=== PATIENT | female | born 1960 | race Caucasian/White ===

== ENCOUNTER → 2017-12-15 15:44 | Outpatient (CLI) | payer OTHER, SELFPAY ==
[2017-12-15 18:36] LABS: Hematocrit 33.5 % (37-47); Hemoglobin 10.7 g/dl (12.0-15.0); Mean Corp Hgb Conc 31.9 g/gl (32-36); Mean Corpuscular Hgb 30.5 pg (27.0-32.0); Mean Corpuscular Volume 95.4 fL (81-99); Mean Platelet Vol. 10.4 fl (6.2-12.0); Platelet Count 231 K/mm3 (150-450); RBC Distribution Width CV 12.5 % (11.6-14.6); Red Blood Count 3.51 M/mm3 (4.2-5.4)
[2017-12-15 18:55] LABS: Scan Indicated on CBC? Y/N NO
[2017-12-15 19:00] LABS: ALB/GLOB Ratio 0.9 RATIO (0.9-2.4); AST(SGOT) 27 U/L (15-37); Alanine Aminotransfer ALT/SGPT 30 U/L (13-56); Albumin, Serum 3.1 g/dL (3.2-5.0); Alkaline Phosphatase 77 U/L (45-117); Anion Gap 7 (5-15); BUN 32 mg/dL (7-18); BUN/Creat Ratio 20.6 RATIO (10-20); Calcium,Total 8.5 mg/dL (8.5-10.1); Chloride 109 mmol/L (98-107); Cholesterol 150 mg/dL (200); Creatinine, Serum 1.55 mg/dL (0.55-1.02); EST Glomerular Filtration Rate 37 mL/min (>60); Est Glom Filt Rate - Afr Amer 44 mL/min (>60); Globulin 3.4 g/dL (2.2-4.2); Glucose 90 mg/dL (74-106); High Density Lipoprotein 64 mg/dL; Potassium 4.9 mmol/L (3.5-5.1); Protein, Total 6.5 g/dL (6.4-8.2); Sodium Level 142 mmol/L (136-145); Thyroid Stim Hormone (TSH) 1.69 uIU/mL (0.358-3.74); Triglycerides 93 mg/dL; Very Low Density Lipoprotein 19 mg/dL (5-40)
[2017-12-15 19:58] LABS: Vitamin D,25 Hydroxy 9.1 ng/mL (19.95-100.01)
[2017-12-16 16:35] LABS: RET-HE 33.8 pg (30-35); Reticulocyte Count 1.36 % (0.5-1.5)
[2017-12-16 17:55] LABS: Ferritin 60 ng/mL (8-252); Iron 48 ug/dL (50-170); Iron Binding Capacity,Total 276 ug/dL (250-450); PERCENT IRON SATURATION 17.4 % (15.0-55.0)
== END ==
PROVIDERS: Family Provider Family Medicine; PCP Family Medicine; Visit Provider Family Medicine
DX: N18.9 Chronic kidney disease, unspecified (principal)
CPT/HCPCS: 36415; 80053; 80061; 82306; 82728; 83540; 83550; 84443; 85027; 85045

== ENCOUNTER 2018-01-11 19:05 | Inpatient (IN) | payer OTHER, SELFPAY ==
[2018-01-11 19:10] VITALS: BP 96/39; PULSE 76; RESP 16; TEMP 36.6; O2SAT 98; BMI 17.1
[2018-01-11 19:21] LABS: Bedside Glucose > 500 mg/dL (70-110)
[2018-01-11] MEDS: 0.9% Normal Saline 1,000 ML 999 ML IV (19:25)
--- NOTE | 2018-01-11 19:30 | RAD_ITS ---
STUDY: X-RAY CHEST REASON FOR EXAM: Female, 57 years old. Hyperglycemia TECHNIQUE: A single frontal view of the chest was obtained. COMPARISON: March 11, 2015 FINDINGS: The lungs are hyperinflated. There are no focal airspace opacities. There is no demonstrated pleural abnormality. The cardiac silhouette is normal in size. The mediastinum and hilar regions are unremarkable. Normal visualized pulmonary arteries. Normal visualized aortic arch and descending thoracic aorta. The thoracic spine is unremarkable. The visualized ribs, clavicles, and shoulders are unremarkable. There is no demonstrated abnormality of the visualized upper abdomen. RAD/Chest 1 View (Portable) IMPRESSION: No acute cardiopulmonary abnormalities or changes. Stable COPD. Electronically Signed: Otilia Paul MD at 19:54 EDT Tel Direct: [phone], Service support ,
--- NOTE | 2018-01-11 19:51 | EKG12_ITS ---
Test Reason : HYPERGLYCEMIA Blood Pressure : / mmHG Vent. Rate : 077 BPM Atrial Rate : 077 BPM P-R Int : 158 ms QRS Dur : 080 ms QT Int : 398 ms P-R-T Axes : 073 -69 086 degrees QTc Int : 450 ms Normal sinus rhythm Left axis deviation Septal infarct , age undetermined Abnormal ECG Confirmed by MODESTO DAIGLE, NICOLA ([id number]), editor index HARPAL ELLIS ([id number]) on 01/14/2018 4:09:50 PM Referred By: CAMMIE Confirmed By:NICOLA SALVADOR MD
[2018-01-11 20:18] LABS: Absolute Lymphocyte Count 1.39 X10^3/ul (0.83-4.51); Absolute Neutrophil Count 15.4 X10^3/uL (2.0-7.7); Basophil# 0.03 X10^3/uL; Basophil% 0.2 % (0-1); Eosinophil# 0.02 X10^3/uL; Eosinophils% 0.1 % (0-5); Hematocrit 29.9 % (37-47); Hemoglobin 9.6 g/dl (12.0-15.0); Lymphocyte # 1.39 X10^3/ul (4.0); Lymphocyte % 7.6 % (19-41); Mean Corp Hgb Conc 32.1 g/gl (32-36); Mean Corpuscular Hgb 30.3 pg (27.0-32.0); Mean Corpuscular Volume 94.3 fL (81-99); Mean Platelet Vol. 10.3 fl (6.2-12.0); Monocyte# 1.38 X10^3/uL; Monocyte% 7.6 % (0-10); Neutrophil # 15.37 X10^3/uL (2.7-7.7); Neutrophil % 84.2 % (47-70); Platelet Count 210 K/mm3 (150-450); RBC Distribution Width CV 11.8 % (11.6-14.6); RBC Distribution Width SD 40.3 fl (35.1-43.9); Red Blood Count 3.17 M/mm3 (4.2-5.4); White Blood Count 18.3 K/mm3 (4.4-11.0)
[2018-01-11 20:19] LABS: POSITIVE COUNT NO; POSITIVE DIFFERENTIAL NO; POSITIVE MORPHOLOGY NO
--- NOTE | 2018-01-11 20:38 | NURSING ---
LAB CALLED WITH CRITICAL RESULT OF 682 GLUCOSE
[2018-01-11 20:40] LABS: Anion Gap 24 (5-15); BUN 87 mg/dL (7-18); Calcium,Total 7.4 mg/dL (8.5-10.1); Chloride 96 mmol/L (98-107); Creatinine, Serum 4.14 mg/dL (0.55-1.02); EST Glomerular Filtration Rate 12 mL/min (>60); Est Glom Filt Rate - Afr Amer 14 mL/min (>60); Estimated Creatinine Clearance 11.24 ml/min; Glucose 682 mg/dL (74-106); Potassium 5.3 mmol/L (3.5-5.1); Sodium Level 134 mmol/L (136-145)
[2018-01-11 20:49] LABS: Red Blood Cells-Urine 0 SEEN /hpf (0-5)
[2018-01-11 20:53] VITALS: BP 109/42; PULSE 79; RESP 24; O2SAT 98
[2018-01-11 20:58] LABS: Color, Urine Yellow (Yellow); Glucose, Dipstick 1000 mg/dl (Normal); Ketone-Dipstick 15 mg/dl (Negative); Leukocyte Esterase-Dipstick 100 /ul (Negative); Nitrite-Dipstick Negative (Negative); Occult Blood-Urine Negative /ul (Negative); Protein-Dipstick 100 mg/dl (Negative); Urine Bilirubin Dipstick Negative (Negative); Urine Clarity Clear (Clear); Urine Urobilinogen Normal (Normal)
--- NOTE | 2018-01-11 21:24 | ED.VISSUMM ---
- ER Visit Summary Date of Service: 01/11/18 Chief Complaint: Tocometer is reading high History of Present Illness: The patient is a 57 F who is not alert. answered many of questions asked. There is been no documented fever. She denies headache photophobia or stiffness of her neck. She does complain of a slight cough and rhinorrhea. She denies earache or sore throat. She denies chest pain, palpitations or rapid heart rate. She did report nausea and vomiting ?4. Emesis was brown in color. No obvious blood according to the . She denies abdominal pain. She denies black or maroon stool. She denies bleeding disorder or bruising easily. She is on no antiplatelet or anticoagulant. She denies any double vision, blurred vision or loss of vision. She denies myalgias or arthralgias. She does complain of generalized weakness. She does complain of polydipsia without polyphagia, polyuria or nocturia. She denies heat or cold intolerance. Physical Examination: Vital signs are unremarkable. She is not tachycardic tachypnic or febrile. Systolic blood pressure 96 which is normal according to . He states her diastolic is lower than normal. Pupils equal round reactive. Extra muscle intact. No scleral icterus. TMs normal. There is slight drainage. Posterior pharyngeal erythema or exudate. Trachea midline. There is no stridor. Heart is regular without murmur, gallop or rub. Lungs are clear to auscultation with good mirror bilateral. Abdomen scaphoid nontender with bowel sounds present but diminished. There is no CVA tenderness noted. There is no dermatologic lesions noted. Motor sensory intact. DTRs are symmetric. Range is 2-12 are intact. Test Results: EKG reveals a sinus rhythm rate of 74 and evidence of left axis and decreased anterior force and unchanged from March 112014. Two-view chest x-ray interpreted by me as negative. Urine is remarkable for glucose and ketones. White count is 18.3 thousand with an H&H 9.6 and 29.9. Electrode panel was marked for sodium 134 and chloride 96. Blood sugar 682 with a CO2 of 14 and anion gap 24. Creatinine is 4.14. Creatinine approximately 1.5. Emergency Department Course and Treatment: He was established and she received 1 L of normal saline which is 25 cc/kg. Blood work was obtained. Since she is not tachycardic or tachypneic concerned she may have nonketotic hyperosmolar state. Chest x-ray was obtained because of the reported cough. Urine and urine culture were obtained to evaluate for urinary tract infection. Since her white count is elevated will obtain blood cultures ?2. EKG to rule out cardiac ischemia. Treatment Plan: After the infusion of the 1 L of normal saline and insulin drip was started. She will require admission to the intensive care unit Disposition: Admission ICU Impression: 1. DKA 2. Chronic anemia 3. Acute kidney injury 4. Leukocytosis This note was generated with [employer] dictation software. It may contain incorrect words, spelling, and punctuation that were not noted in review of the chart prior to signing ED Disposition - Plan for ED Patient: Disposition: Acute Care Hospital [facility] Chief Complaint: Hyperglycemia Referrals: Sin Lujan MD [Primary Care Provider] -
[2018-01-11 21:26] LABS: Squamous Epithelial Cells - UA 0-5 SEEN /hpf (5-10); White Blood Cells 10-25 SEEN /hpf (0-5)
[2018-01-11 21:27] LABS: Bacteria 1+ /hpf (None Seen); Mucous, Urine 1+ /hpf (<or=2+); Transitional Epithelial - Ur 0-5 SEEN /hpf (0-5)
[2018-01-11 21:28] LABS: Hyaline Cast 0-5 SEEN /lpf (0-5)
--- NOTE | 2018-01-11 21:29 | ED.DCSUM_ITS ---
- ER Visit Summary Date of Service: 01/11/18 Chief Complaint: Tocometer is reading high History of Present Illness: The patient is a 57 F who is not alert. answered many of questions asked. There is been no documented fever. She denies headache photophobia or stiffness of her neck. She does complain of a slight cough and rhinorrhea. She denies earache or sore throat. She denies chest pain, palpitations or rapid heart rate. She did report nausea and vomiting ?4. Emesis was brown in color. No obvious blood according to the . She denies abdominal pain. She denies black or maroon stool. She denies bleeding disorder or bruising easily. She is on no antiplatelet or anticoagulant. She denies any double vision, blurred vision or loss of vision. She denies myalgias or arthralgias. She does complain of generalized weakness. She does complain of polydipsia without polyphagia, polyuria or nocturia. She denies heat or cold intolerance. Physical Examination: Vital signs are unremarkable. She is not tachycardic tachypnic or febrile. Systolic blood pressure 96 which is normal according to . He states her diastolic is lower than normal. Pupils equal round reactive. Extra muscle intact. No scleral icterus. TMs normal. There is slight drainage. Posterior pharyngeal erythema or exudate. Trachea midline. There is no stridor. Heart is regular without murmur, gallop or rub. Lungs are clear to auscultation with good mirror bilateral. Abdomen scaphoid nontender with bowel sounds present but diminished. There is no CVA tenderness noted. There is no dermatologic lesions noted. Motor sensory intact. DTRs are symmetric. Range is 2-12 are intact. Test Results: EKG reveals a sinus rhythm rate of 74 and evidence of left axis and decreased anterior force and unchanged from March 112014. Two-view chest x -ray interpreted by me as negative. Urine is remarkable for glucose and ketones. White count is 18.3 thousand with an H&H 9.6 and 29.9. Electrode panel was marked for sodium 134 and chloride 96. Blood sugar 682 with a CO2 of 14 and anion gap 24. Creatinine is 4.14. Creatinine approximately 1.5. Emergency Department Course and Treatment: He was established and she received 1 L of normal saline which is 25 cc/kg. Blood work was obtained. Since she is not tachycardic or tachypneic concerned she may have nonketotic hyperosmolar state. Chest x-ray was obtained because of the reported cough. Urine and urine culture were obtained to evaluate for urinary tract infection. Since her white count is elevated will obtain blood cultures ?2. EKG to rule out cardiac ischemia. Treatment Plan: After the infusion of the 1 L of normal saline and insulin drip was started. She will require admission to the intensive care unit Disposition: Admission ICU Impression: 1. DKA 2. Chronic anemia 3. Acute kidney injury 4. Leukocytosis This note was generated with [employer] dictation software. It may contain incorrect words, spelling, and punctuation that were not noted in review of the chart prior to signing ED Disposition - Plan for ED Patient: Disposition: Acute Care Hospital [facility] Chief Complaint: Hyperglycemia Referrals: Sin Lujan MD [Primary Care Provider] -
[2018-01-11 21:41] VITALS: BP 99/41; PULSE 79; RESP 22; O2SAT 96
--- NOTE | 2018-01-11 22:04 | ED.RN ---
NG tube removed at this time. minimal right red blood only was noted in canister tubing after insertion.
[2018-01-11] MEDS: 0.9% Normal Saline 1,000 ML 250 ML IV (22:10)
[2018-01-11 22:36] LABS: Bedside Glucose > 500 mg/dL (70-110)
--- NOTE | 2018-01-11 23:03 | HP.PCM_ITS ---
Problem List (1) DKA (diabetic ketoacidoses) Status: Acute (2) NSTEMI (non-ST elevated myocardial infarction) Status: Acute (3) Intractable nausea and vomiting Status: Acute (4) Ketoacidosis Status: Acute (5) CKD (chronic kidney disease) stage 3, GFR 30-59 ml/min Status: Chronic (6) COPD (chronic obstructive pulmonary disease) Status: Chronic (7) Chronic constipation Status: Chronic (8) DM type 1 (diabetes mellitus, type 1) Status: Chronic Qualifiers: Diabetes mellitus complication status: with kidney complications Diabetes mellitus complication detail: with chronic kidney disease Chronic kidney disease stage: stage 3 (moderate) Qualified Code(s): E10.22 - Type 1 diabetes mellitus with diabetic chronic kidney disease History of Present Illness Date of Admission: 01/11/18 Chief Complaint: DKA The patient is a 57 year old female w/ DMII, CKD III, HTN, COPD and lipidemia admitted for DKA. She has been compliant w/ her meds. In the last few days, she has been feeling fatigue but has no other symptoms w/ the exception for mild cough and n/v. She has vomited multiple times. She vomit up brown material. Nothing made it worse or better. No hematuria or hematochezia.. No melena. She has no chest pain. No diarrhea or constipation. Her was answering most of the questions. Past Medical History Past Medical History (Chronic Problems): Chronic Problems Chronic constipation (Chronic) Tobacco use (Chronic) Hyperlipidemia (Chronic) COPD (chronic obstructive pulmonary disease) (Chronic) CKD (chronic kidney disease) stage 3, GFR 30-59 ml/min (Chronic) DM type 1 (diabetes mellitus, type 1) (Chronic) Type II diabetes mellitus (Chronic) Allergies No Known Allergies Allergy (Verified 01/11/18 19:13) Home Medications: Ambulatory Orders Medication Instructions Recorded Gabapentin 300 mg PO QHS 01/21/15 Insulin Aspart [Novolog Flexpen] 10 unit SC TIDCM 01/21/15 Insulin Glargine [Lantus SoloStar 23 unit SC QHS 01/21/15 Pen] Lisinopril 2.5 mg PO QHS 01/21/15 Simvastatin 40 mg PO QHS 01/21/15 Albuterol Sulfate [Proventil Hfa] 6.7 gm IH Q2H PRN PRN #1 hfa.aer.ad 03/11/15 Escitalopram Oxalate [Lexapro] 20 mg PO QHS 08/19/16 Ondansetron [Zofran] 8 mg PO Q8H PRN PRN #15 tablet 08/20/16 Insulin Detemir [Levemir (BKC)] 12 units SC QHS 01/11/18 Insulin Lispro [Humalog Kwikpen] 10 unit SQ TIDCM 01/11/18 Surgical History: appendectomy, hysterectomy, - - . 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 No diabetes Paternal History Items: No pertinent history, - - No diabetes Review of Systems Constitutional: Denies: Chills, Fever, Weight Change HEENT: Denies: Head Aches, Sinus Congestion, Sinus Drainage Cardiovascular: Denies: Chest Pain, Palpitations Respiratory: Reports: Cough. Denies: Shortness of breath at rest, Sputum production Gastrointestinal: Reports: Nausea, Vomiting. Denies: Abdominal Pain Genitourinary: Denies: Dysuria Musculoskeletal: Denies: Joint Pain, Joint Tenderness Skin: Denies: Rash, Wounds Neurological: Denies: Numbness, Tingling, Focal weakness Psychiatric: Denies: Anxiety, Depression, Homicidal Ideations, Suicidal Ideations Hematologic/ Lymphatic: Denies: Easy Bruising, Easy Bleeding VTE Information - Inpt Only VTE Present on Admission: No VTE Mechan Device Prophylaxis: SCD's VTE Pharm Prophylaxis ordered?: Yes Patient Problems: Active and Suspected Problems DKA (diabetic ketoacidoses) (Acute) NSTEMI (non-ST elevated myocardial infarction) (Acute) - Physical Exam General: Alert, Oriented x3, Cooperative HEENT: Atraumatic, PERRLA, EOMI, Normocephalic Neck: Supple, No JVD, Negative Carotid Bruits Lungs: Clear to auscultation, Normal air movement Cardiovascular: Regular rate, No murmurs Abdomen: Bowel Sounds Present, Soft, Non Tender Extremities: No edema, Capillary Refill Less than 3 Seconds Skin: No rashes, No breakdown Musculoskeletal: No Tenderness to Palpation of Joints or Extremities Neurological: Cranial nerves II-XII grossly intact Psych/Mental Status: Normal Affect, Appropriate Vital Signs Temp Pulse Resp BP Pulse Ox 97.9 F 79 22 H 99/41 L 96 01/11/18 19:10 01/11/18 21:41 01/11/18 21:41 01/11/18 21:41 01/11/18 21:41 Laboratory Tests Past 24 Hrs 01/11/18 22:45 Glucose Pending POC Glucose 01/11/18 22:32 POC Glucose > 500 H* Assessment/Plan Active and Suspected Problems DKA (diabetic ketoacidoses) (Acute) NSTEMI (non-ST elevated myocardial infarction) (Acute) 57 year old female w/ DMII, CKD III, HTN, COPD and lipidemia admitted for DKA. 1) DKA: Hyperglycemia, ketone, and gap acidosis noted. Aggressive hydration. Insulin gtt. C/w DKA protocol. Cultures pending. 2) NSTEMI: Possible secondary to type II MD vs clearance from UMA. Trop 2.1 Serial trops. Heparin gtt. Consulted cards. 3) ARF: Most likely secondary to ATN secondary to prolong azotemia from DKA. Hydration. Monitor. 4) Prophylaxis: SCD / heparin.
[2018-01-11 23:12] LABS: Glucose 759 mg/dL (74-106)
[2018-01-11 23:30] VITALS: BP 107/46; PULSE 79; RESP 18; O2SAT 95
[2018-01-12] VITALS (39 sets, daily range): BP systolic 67–143; BP diastolic 41–97; PULSE 73–82; RESP 15–29; TEMP 36.5–37.7; O2SAT 90–99; BMI 15.9
[2018-01-12] MEDS: Gabapentin 300 MG Capsule PO ×2 (00:29→21:02)
[2018-01-12] MEDS: Escitalopram Oxalate 20 MG Tablet PO ×2 (00:29→21:02)
[2018-01-12] MEDS: 0.9% NaCl Peripheral Flush Adult/Peds IV ×3 (00:29→17:20)
[2018-01-12] MEDS: Atorvastatin Calcium 20 MG Tablet PO ×2 (00:29→21:02)
[2018-01-12] MEDS: 0.9% Normal Saline 1,000 ML 999 ML IV (00:29)
[2018-01-12] MEDS: 0.9% NaCl IVPB Med Flush (250 mL) 15 ML IV (00:30)
[2018-01-12 00:31] LABS: Allen Test POS; Base Excess -14 mmol/L (-2 to +2); Blood Gas Specimen Type ART; O2 Delivery Device Room Air; PO2 77 mmHG (75-100); SITE L Radial; SO2 92 % (95-99); Total Carbon Dioxide 15 mmol/L; pCO2 34.7 mmHg (35-45); pH 7.21 (7.35-7.45)
[2018-01-12 00:47] LABS: Anion Gap 21 (5-15); BUN 86 mg/dL (7-18); Calcium,Total 6.9 mg/dL (8.5-10.1); Chloride 101 mmol/L (98-107); Creatinine, Serum 4.09 mg/dL (0.55-1.02); EST Glomerular Filtration Rate 12 mL/min (>60); Est Glom Filt Rate - Afr Amer 14 mL/min (>60); Estimated Creatinine Clearance 10.58 ml/min; Glucose 606 mg/dL (74-106); Potassium 4.6 mmol/L (3.5-5.1); Sodium Level 138 mmol/L (136-145)
[2018-01-12 01:12] LABS: Hemoglobin A1c 10.6 % (4.2-6.3)
[2018-01-12] MEDS: 0.9% Normal Saline 1,000 ML 500 ML IV (01:38)
[2018-01-12 01:56] LABS: Partial Thromboplast Time 28.5 Seconds (24.1-36.2); Prothrombin Time (Protime)PT. 13.5 SECONDS (11.7-14.9)
[2018-01-12] MEDS: HEPARIN/D5w 25,000 UNITS 25,000 UNITS/250 ML IV.SOLN. 5.5 UNITS IV (01:57)
[2018-01-12 01:59] LABS: M R Staph aureus DNA By PCR Negative (Negative); Probe Check PASS; Specimen Processing Control PASS
[2018-01-12 02:22] LABS: Amphetamine Urine VISTA NEGATIVE (<1000 ng/mL); Barbiturate Urine VISTA NEGATIVE (< 200 ng/mL); Benzodiazepine Urine VISTA NEGATIVE (< 200 ng/mL); Cocaine Urine VISTA NEGATIVE (< 300 ng/mL); Ecstacy Urine VISTA NEGATIVE (< 500 ng/mL); Methadone Urine VISTA NEGATIVE (< 300 ng/mL); PCP Urine VISTA NEGATIVE (< 25 ng/mL); THC Urine VISTA NEGATIVE (< 50 ng/mL); Vista UDS pH Range 6
[2018-01-12 03:06] LABS: Bedside Glucose > 500 mg/dL (70-110)
[2018-01-12 03:06] LABS: Bedside Glucose 408 mg/dL (70-110)
[2018-01-12 03:11] LABS: Bedside Glucose 332 mg/dL (70-110)
[2018-01-12] MEDS: 0.9% Normal Saline 1,000 ML 250 ML IV (03:25)
[2018-01-12 05:12] LABS: Anion Gap 12 (5-15); BUN 75 mg/dL (7-18); BUN/Creat Ratio 22.2 RATIO (10-20); Calcium,Total 6.7 mg/dL (8.5-10.1); Chloride 109 mmol/L (98-107); Creatinine, Serum 3.38 mg/dL (0.55-1.02); EST Glomerular Filtration Rate 15 mL/min (>60); Est Glom Filt Rate - Afr Amer 18 mL/min (>60); Glucose 291 mg/dL (74-106); Sodium Level 143 mmol/L (136-145)
[2018-01-12 05:13] LABS: Hematocrit 24.5 % (37-47); Hemoglobin 8.3 g/dl (12.0-15.0); Mean Corp Hgb Conc 33.9 g/gl (32-36); Mean Corpuscular Hgb 30.3 pg (27.0-32.0); Mean Corpuscular Volume 89.4 fL (81-99); Mean Platelet Vol. 9.9 fl (6.2-12.0); Platelet Count 179 K/mm3 (150-450); RBC Distribution Width SD 38.9 fl (35.1-43.9); Red Blood Count 2.74 M/mm3 (4.2-5.4)
[2018-01-12 05:27] LABS: Scan Indicated on CBC? Y/N NO
--- NOTE | 2018-01-12 05:55 | EKG12_ITS ---
Test Reason : MORNING EKG Blood Pressure : / mmHG Vent. Rate : 076 BPM Atrial Rate : 076 BPM P-R Int : 152 ms QRS Dur : 074 ms QT Int : 388 ms P-R-T Axes : 076 -59 083 degrees QTc Int : 436 ms Normal sinus rhythm Left axis deviation Abnormal ECG When compared with ECG of 11-JAN-2018 19:28, MANUAL COMPARISON REQUIRED, DATA IS UNCONFIRMED Confirmed by MODESTO DAIGLE, NICOLA ([id number]), tape editor HARPAL ELLIS ([id number]) on 01/14/2018 4:19:22 PM Referred By: JU Confirmed By:NICOLA SALVADOR MD
[2018-01-12] MEDS: Dext 5%-0.45% NS 1,000 ML 150 ML IV (06:05)
[2018-01-12 06:51] LABS: Bedside Glucose 313 mg/dL (70-110)
[2018-01-12 06:51] LABS: Bedside Glucose 260 mg/dL (70-110)
[2018-01-12 06:51] LABS: Bedside Glucose 234 mg/dL (70-110)
--- NOTE | 2018-01-12 08:08 | ECHOD_ITS ---
Reason For Study: Elevated Troponin Procedure This was a 2D Doppler, Color Flow transthoracic echocardiogram. Exam performed portable in ICU/CCU. Left Ventricle Normal LV size. Left ventricular systolic function is normal. The estimated ejection fraction is 65 %. No regional wall motion abnormalities noted. Right Ventricle Normal RV size. Normal systolic function. Atria Normal left atrium. Normal right atrium. Mitral Valve Normal mitral valve. Mild (1+) eccentric mitral valve insufficiency. Tricuspid Valve Normal tricuspid valve. Mild (1+) tricuspid valve insufficiency. Pulmonary artery systolic pressure is 35 mmHg. Aortic Valve Trisinus/trileaflet aortic valve. Pulmonic Valve Normal pulmonic valve. Great Vessels Normal aortic root. The pulmonary artery is normal size. Normal inferior vena cava. Pericardium/Pleural No pericardial effusion. MMode/2D Measurements & Calculations LVIDd: 4.0 cm IVSd: 1.0 cm Ao root diam: 2.5 cm LVIDs: 2.5 cm LVPWd: 1.1 cm LA dimension: 3.7 cm RVDd: 2.8 cm FS: 38.3 % LAV(MOD-bp): 20.3 ml LA A4 area: 8.3 cm2 RA A4 area: 9.0 cm2 LAV(MOD-bp) Indexed: 13.8 ml/m2 LAV(MOD-sp2): 22.9 ml LAV(MOD-sp4): 13.2 ml Doppler Measurements & Calculations MV E max shoaib: 131.7 cm/sec Lat Peak E' Shoaib: 9.6 cm/sec Med Peak E' Shoaib: 9.3 cm/sec MV A max shoaib: 79.9 cm/sec E/E' lat: 13.7 E/E' med: 14.2 MV E/A: 1.6 Ao V2 max: 150.3 cm/sec LV V1 max: 104.5 cm/sec PA V2 max: 89.4 cm/sec Ao max P.0 mmHg LV V1 max P.4 mmHg Ao V2 mean: 108.2 cm/sec Ao mean P.1 mmHg Ao V2 VTI: 33.7 cm TR max shoaib: 273.6 cm/sec TR max P.0 mmHg Interpretation Summary Normal LV size. Left ventricular systolic function is normal. The estimated ejection fraction is 65 %. Mild (1+) eccentric mitral valve insufficiency. Mild (1+) tricuspid valve insufficiency. Pulmonary artery systolic pressure is 35 mmHg. Ordering Physician: He Cat Referring Physician: Bird Lujan Performed By: Jennifer Anthony RDCS, RVT
[2018-01-12] MEDS: Aspirin 81 MG TAB.CHEW PO (08:11)
--- NOTE | 2018-01-12 08:13 | CON.PCM_ITS ---
Reason for Consult Date of Consultation: 01/12/18 Reason for Consultation: Abnormal cardiac enzymes History of Present Illness: The patient is a 57 year old F with a past medical history of hypertension diabetes mellitus who presented to the emergency room yesterday with mild confusion and fatigue and shortness of breath over the last couple of days. She was evaluated in the emergency room blood work was done and she was noted to be in diabetic ketoacidosis. An electrocardiogram was done which did not demonstrate any obvious evidence of ischemia but cardiac enzymes were obtained which were noted to be abnormal. Cardiology was called for further evaluation and management this morning. She denies any chest pain or shortness of breath or paroxysmal nocturnal dyspnea or pedal edema. [] Past Medical History Allergies/Adverse Reactions: Allergies No Known Allergies Allergy (Verified 01/11/18 19:13) Home Medications: Ambulatory Orders Medication Instructions Recorded Gabapentin 300 mg PO QHS 01/21/15 Insulin Aspart [Novolog Flexpen] 10 unit SC TIDCM 01/21/15 Insulin Glargine [Lantus SoloStar 23 unit SC QHS 01/21/15 Pen] Lisinopril 2.5 mg PO QHS 01/21/15 Simvastatin 40 mg PO QHS 01/21/15 Albuterol Sulfate [Proventil Hfa] 6.7 gm IH Q2H PRN PRN #1 hfa.aer.ad 03/11/15 Escitalopram Oxalate [Lexapro] 20 mg PO QHS 08/19/16 Ondansetron [Zofran] 8 mg PO Q8H PRN PRN #15 tablet 08/20/16 Insulin Detemir [Levemir (BKC)] 12 units SC QHS 01/11/18 Insulin Lispro [Humalog Kwikpen] 10 unit SQ TIDCM 01/11/18 Past Medical History (Chronic Problems): Chronic Problems Chronic constipation (Chronic) Tobacco use (Chronic) Hyperlipidemia (Chronic) COPD (chronic obstructive pulmonary disease) (Chronic) CKD (chronic kidney disease) stage 3, GFR 30-59 ml/min (Chronic) DM type 1 (diabetes mellitus, type 1) (Chronic) Type II diabetes mellitus (Chronic) Surgical History: appendectomy, hysterectomy, - - . 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 No diabetes Paternal History Items: No pertinent history, - - No diabetes Smoking Status: Current every day smoker Alcohol: None Drugs: None Review of Systems - Review of Systems General: Reports: Fatigue, Malaise, Weakness, Decreased Appetite. Denies: Fever , Night Sweats Cardiovascular: Denies: Chest Discomfort, Shortness of Breath, Orthopnea, PND, Peripheral Edema, Palpitations, Lightheadedness, Dizziness, Near Syncope, Syncope Respiratory: Denies: Cough, Sputum Production, Hemoptysis Gastrointestinal: Denies: Hematemesis, Hematochezia, Melena Genitourinary: Denies: Dysuria, Hematuria Skin: Denies: Rash Subjectve: Awake coherent Pleasant lady in no distress Objective: Vital Signs Temp Pulse Resp BP Pulse Ox 98.1 F 76 24 H 112/56 L 99 01/12/18 07:59 01/12/18 07:59 01/12/18 07:59 01/12/18 07:59 01/12/18 07:59 Oxygen Delivery Method Room Air Weight: 98 lb 8.746 oz Body Mass Index (BMI) 15.9 Intake and Output for Last 24 Hours 01/10/18 01/11/18 01/12/18 22:59 23:59 23:59 Intake Total 2990 / 2990 Output Total 600 / 600 Balance 2390 / 2390 General: Awake, Alert, Oriented x 3 HEENT: PERRL, EOMI, Sclera Non Icteric Neck: Supple, Good ROM, No Lymph Node Enlargement Lungs: Clear to auscultation Cardiovascular: Regular Rhythm, Normal S1, Normal S2, No Murmurs, No Rubs, No Gallops Vascular: No Carotid Bruits, Normal Femoral Pulses, Normal Radial Pulses, Normal Dorsalis Pedal Pulse, Normal Posterior Tibial Pulses Abdomen: Bowel Sounds Present, Soft, Non Tender, No HSM, No Organomegaly Extremities: No Cyanosis, No Clubbing, No edema Neurological: No Focal Motor or Sensory Deficit 01/11/18 22:45: Glucose 759 H* 01/12/18 00:10: Sodium Cancelled, Potassium Cancelled, Chloride Cancelled, Carbon Dioxide Cancelled, Anion Gap Cancelled, BUN Cancelled, Creatinine Cancelled, Est GFR (MDRD) Af Amer Cancelled, Est GFR (MDRD) Non-Af Cancelled, BUN/Creatinine Ratio Cancelled, Glucose Cancelled, Calcium Cancelled, Troponin I 2.18 H* 01/12/18 00:10: Hemoglobin A1c 10.6 H 01/12/18 00:10: Sodium 138, Potassium 4.6, Chloride 101, Carbon Dioxide 16.0 L, Anion Gap 21 H, BUN 86 H, Creatinine 4.09 H, Est GFR (MDRD) Af Amer 14 L, Est GFR (MDRD) Non-Af 12 L, BUN/Creatinine Ratio 21.0 H, Glucose 606 H*, Calcium 6.9 L 01/12/18 00:26: pH 7.21 L, Bicarbonate Actual 14.0 L, POC Total CO2 15, Base Excess -14 L, O2 Saturation 92 L, ABG pCO2 34.7 L, ABG pO2 77, Demond Test POS 01/12/18 01:35: PT 13.5, INR 1.0, APTT 28.5 01/12/18 04:15: WBC 15.0 H, RBC 2.74 L, Hgb 8.3 L, Hct 24.5 L, MCV 89.4, MCH 30.3, MCHC 33.9, RDW 12.0, RDW Differential 38.9, Plt Count 179, MPV 9.9 01/12/18 04:15: Sodium 143, Potassium 5.0, Chloride 109 H, Carbon Dioxide 22.0, Anion Gap 12, BUN 75 H, Creatinine 3.38 H, Est GFR (MDRD) Af Amer 18 L, Est GFR (MDRD) Non-Af 15 L, BUN/Creatinine Ratio 22.2 H, Glucose 291 H, Calcium 6.7 L, Troponin I 2.36 H* Rhythm: EKG: Normal sinus rhythm with no acute changes. Assessment/Plan 1. Non-ST elevation myocardial infarction. Patient presents with mild confusion and noted to be in diabetic ketoacidosis and has an abnormal cardiac enzyme pattern. Patient also has renal dysfunction. At this time the focus would be on getting her blood sugar under control as well as her electrolytes rectified. An echocardiogram should be performed to assess her left ventricular function and depending on the final level of her electrolytes further recommendations will be made. She will more than likely need an evaluation of her coronary anatomy before being discharged. I will speak to her little later when she is a lot more coherent about this. In the meantime would like to start her on aspirin clopidogrel as well as low- dose beta-darwin. 2. Hypertension Continue treatment with antihypertensive with the beta-darwin at this time. 3. Risk factor modification Her diabetic status should be appropriately controlled as well as lipid levels should also be obtained and then further recommendations will be made depending on the levels. Thank you for allowing me to participate in the care of your patient. Please don't hesitate to call if any issues arise
[2018-01-12 08:16] LABS: Bedside Glucose 249 mg/dL (70-110)
[2018-01-12 08:16] LABS: Bedside Glucose 261 mg/dL (70-110)
[2018-01-12 08:39] LABS: Partial Thromboplast Time 58.6 Seconds (24.1-36.2)
[2018-01-12 08:41] LABS: Anion Gap 8 (5-15); BUN 72 mg/dL (7-18); BUN/Creat Ratio 23.5 RATIO (10-20); Calcium,Total 6.7 mg/dL (8.5-10.1); Chloride 116 mmol/L (98-107); Creatinine, Serum 3.07 mg/dL (0.55-1.02); EST Glomerular Filtration Rate 17 mL/min (>60); Est Glom Filt Rate - Afr Amer 20 mL/min (>60); Glucose 247 mg/dL (74-106); Potassium 4.7 mmol/L (3.5-5.1); Sodium Level 146 mmol/L (136-145)
--- NOTE | 2018-01-12 09:18 | PN_ITS ---
Patient Problems: Active and Suspected Problems DKA (diabetic ketoacidoses) (Acute) NSTEMI (non-ST elevated myocardial infarction) (Acute) Subjective: Patient is admitted in ICU with DKA complicated with high troponin possible non- STEMI along with acute kidney injury on CKD stage IV. Denies chest pain or shortness of breath. Her mother has history of coronary artery disease. Her Brothers and sister does not have cardiac comorbidities. Vitals/I&O's: Vital Signs Temp Pulse Resp BP Pulse Ox 98.1 F 76 21 H 132/97 H 96 01/12/18 07:59 01/12/18 09:00 01/12/18 09:00 01/12/18 09:00 01/12/18 09:00 Oxygen Delivery Method Room Air Weight: 98 lb 8.746 oz Body Mass Index (BMI) 15.9 Finger Stick Blood Glucose 249 Intake and Output for Last 24 Hours 01/10/18 01/11/18 01/12/18 22:59 23:59 23:59 Intake Total 2990 / 2990 Output Total 600 / 600 Balance 2390 / 2390 General: Alert, Oriented x3, Cooperative HEENT: Atraumatic, PERRLA, EOMI, Normocephalic Oral: Dry Mucosa Neck: Supple, No JVD, Negative Carotid Bruits Lungs: No rhonchi, No wheeze, No rales, Diminished Cardiovascular: Regular rate, Regular Rhythm, Normal S1, Normal S2, No murmurs Abdomen: Bowel Sounds Present, Soft, Non-Distended, Tender - Mild epigastric tenderness Extremities: No edema, Capillary Refill Less than 3 Seconds Skin: No rashes, No breakdown Musculoskeletal: No Tenderness to Palpation of Joints or Extremities Neurological: Cranial nerves II-XII grossly intact Psych/Mental Status: Normal Affect, Appropriate Microbiology Past 72 Hours 01/12/18 08:20 Stool Stool Occult Blood (DANYELL) - Final Laboratory Results 01/11/18 22:32: POC Glucose > 500 H* 01/11/18 22:45: Glucose 759 H* 01/12/18 00:08: MRSA (PCR) Negative 01/12/18 00:10: Sodium Cancelled, Potassium Cancelled, Chloride Cancelled, Carbon Dioxide Cancelled, Anion Gap Cancelled, BUN Cancelled, Creatinine Cancelled, Est GFR (MDRD) Af Amer Cancelled, Est GFR (MDRD) Non-Af Cancelled, BUN/Creatinine Ratio Cancelled, Glucose Cancelled, Calcium Cancelled, Troponin I 2.18 H* 01/12/18 00:10: Acetone Level MODERATE H 01/12/18 00:10: Hemoglobin A1c 10.6 H 01/12/18 00:10: Sodium 138, Potassium 4.6, Chloride 101, Carbon Dioxide 16.0 L, Anion Gap 21 H, BUN 86 H, Creatinine 4.09 H, Estim Creat Clear Calc 10.58, Est GFR (MDRD) Af Amer 14 L, Est GFR (MDRD) Non-Af 12 L, BUN/Creatinine Ratio 21.0 H , Glucose 606 H*, Calcium 6.9 L 01/12/18 00:26: Specimen Type ART, Sample Site L Radial, pH 7.21 L, Bicarbonate Actual 14.0 L, POC Total CO2 15, Base Excess -14 L, O2 Saturation 92 L, ABG pCO2 34.7 L, ABG pO2 77, Demond Test POS, O2 Delivery Device Room Air, Blood Gas Notified Whom HOSP 01/12/18 01:04: POC Glucose > 500 H* 01/12/18 01:35: PT 13.5, INR 1.0, APTT 28.5 01/12/18 01:35: Urine Opiates Screen NEGATIVE, Urine Methadone Screen NEGATIVE, Ur Barbiturates Screen NEGATIVE, Ur Phencyclidine Scrn NEGATIVE, Ur Amphetamines Screen NEGATIVE, U Methamphetamin-MDMA NEGATIVE, U Benzodiazepines Scrn NEGATIVE, Urine Cocaine Screen NEGATIVE, U Cannabinoids Screen NEGATIVE, Ur Drug Screen Comment 01/12/18 02:03: POC Glucose 408 H 01/12/18 03:04: POC Glucose 332 H 01/12/18 04:11: POC Glucose 313 H 01/12/18 04:15: WBC 15.0 H, RBC 2.74 L, Hgb 8.3 L, Hct 24.5 L, MCV 89.4, MCH 30.3, MCHC 33.9, RDW 12.0, RDW Differential 38.9, Plt Count 179, MPV 9.9 01/12/18 04:15: Sodium 143, Potassium 5.0, Chloride 109 H, Carbon Dioxide 22.0, Anion Gap 12, BUN 75 H, Creatinine 3.38 H, Estim Creat Clear Calc 12.80, Est GFR (MDRD) Af Amer 18 L, Est GFR (MDRD) Non-Af 15 L, BUN/Creatinine Ratio 22.2 H , Glucose 291 H, Calcium 6.7 L, Troponin I 2.36 H* 01/12/18 05:08: POC Glucose 260 H 01/12/18 06:00: POC Glucose 234 H 01/12/18 07:09: POC Glucose 261 H 01/12/18 08:00: Sodium 146 H, Potassium 4.7, Chloride 116 H, Carbon Dioxide 22.0 , Anion Gap 8, BUN 72 H, Creatinine 3.07 H, Estim Creat Clear Calc 14.10, Est GFR (MDRD) Af Amer 20 L, Est GFR (MDRD) Non-Af 17 L, BUN/Creatinine Ratio 23.5 H , Glucose 247 H, Calcium 6.7 L, Troponin I 2.06 H* 01/12/18 08:00: APTT 58.6 H 01/12/18 08:09: POC Glucose 249 H Current Medications Aspirin (Aspirin, Baby) 81 mg PO DAILY@0800 [facility] Last Admin: 01/12/18 08:11 Dose: 81 mg Atorvastatin Calcium (Lipitor) 20 mg PO QHS [facility] Last Admin: 01/12/18 00:29 Dose: 20 mg Clopidogrel Bisulfate (Plavix) 75 mg PO DAILY [facility] Dextrose (D50w Syringe) 0 gm IV X1 PRN; Protocol PRN Reason: Hypoglycemia Dextrose (D50w Syringe) 0 gm IV X1 PRN; Protocol PRN Reason: AGITATION Escitalopram Oxalate (Lexapro) 20 mg PO QMID [facility] Last Admin: 01/12/18 00:29 Dose: 20 mg Gabapentin (Neurontin) 300 mg PO QHS [facility] Last Admin: 01/12/18 00:29 Dose: 300 mg Glucagon () 1 mg IM .X1 PRN PRN Reason: Hypoglycemia Heparin Sodium (Porcine) () 0 units IV UD PRN PRN Reason: Protocol Sodium Chloride () 525 mls @ 175 mls/hr IV .Q3H ONE Stop: 01/12/18 09:59 Last Admin: 01/12/18 06:05 Dose: Not Given Sodium Chloride () 250 mls @ 15 mls/hr IV .[id number] PRN PRN Reason: SALINE FLUSH Last Admin: 01/12/18 00:30 Dose: 15 mls/hr Insulin Aspart 100 unit/ (Sodium Chloride) 100 mls @ 4.8 mls/hr IV .[id number] LANCE ; 0.1 UNITS/KG/HR PRN Reason: Protocol Stop: 01/12/18 12:00 Last Admin: 01/12/18 00:28 Dose: 4.8 mls/hr Pantoprazole Sodium 40 mg/ (Sodium Chloride) 110 mls @ 330 mls/hr IV Q24 [facility] Last Admin: 01/12/18 00:28 Dose: 330 mls/hr Heparin Sodium/Dextrose () 25,000 units in 250 mls @ 5.5 mls/hr IV .[id number] LANCE ; As Directed PRN Reason: Protocol Last Admin: 01/12/18 01:57 Dose: 5.5 mls/hr Dextrose/Sodium Chloride () 1,000 mls @ 150 mls/hr IV .[id number] [facility] Last Admin: 01/12/18 06:05 Dose: 150 mls/hr Insulin Aspart (Novolog Flexpen (Bkc)) 0 units SC ACHS [facility] PRN Reason: Protocol Lisinopril (Zestril) 2.5 mg PO QHS [facility] Last Admin: 01/12/18 00:31 Dose: Not Given Magnesium Hydroxide (Milk Of Magnesia) 30 ml PO DAILY PRN PRN PRN Reason: Constipation Ondansetron HCl (Zofran) 4 mg IV Q6H PRN PRN PRN Reason: NAUSEA Sodium Chloride () 5 - 30 ml IV UD PRN PRN Reason: SALINE FLUSH Last Admin: 01/12/18 08:11 Dose: 30 ml Assessment/Plan Active and Suspected Problems DKA (diabetic ketoacidoses) (Acute) NSTEMI (non-ST elevated myocardial infarction) (Acute) This is a 57 year old female type 1 diabetes mellitus, CKD III, HTN, COPD and dyslipidemia admitted for DKA. 1) DKA history of type 1 diabetes mellitus.: The patient is being admitted in the ICU. Anion gap is closed. Bicarb 22. Blood sugar is in the range of 100- 150 mg percent. Insulin drip stopped and switched to Accu-Chek before meals and at bedtime and cover with NovoLog sliding scale. On Levemir and adjust with regard to hypoglycemia. Still mild hypotension continue IV fluid resuscitation. 2) NSTEMI: The patient has been smoking a pack per day since age of 13. She is occasional drinker. Possible secondary to type II VA vs clearance from UMA. Trop 2.1, 2.06. IV heparin drip. Patient seen by Dr. lagos. Advised medical management with aspirin, Plavix and low-dose beta-darwin until patient is more stable. The patient needs assessment of coronary arteries before discharge. 3) acute kidney injury on CKD stage IV; mainly due to DKA with hypovolemia on top of diabetic nephropathy: Most likely secondary to ATN secondary to prolong azotemia from DKA. Consult eye clinic manager Dr. Huerta. Continue IV fluid resuscitation. Monitor intake and output. 4) Prophylaxis: SCD / heparin. Microbiology Past 72 Hours 01/12/18 08:20 Stool Stool Occult Blood (DANYELL) - Final Laboratory Results 01/12/18 00:10: Sodium 138, Potassium 4.6, Chloride 101, Carbon Dioxide 16.0 L, Anion Gap 21 H, BUN 86 H, Creatinine 4.09 H, Estim Creat Clear Calc 10.58, Est GFR (MDRD) Af Amer 14 L, Est GFR (MDRD) Non-Af 12 L, BUN/Creatinine Ratio 21.0 H , Glucose 606 H*, Calcium 6.9 L 01/12/18 00:26: Specimen Type ART, Sample Site L Radial, pH 7.21 L, Bicarbonate Actual 14.0 L, POC Total CO2 15, Base Excess -14 L, O2 Saturation 92 L, ABG pCO2 34.7 L, ABG pO2 77, Demodn Test POS, O2 Delivery Device Room Air, Blood Gas Notified Whom HOSP MD 01/12/18 01:04: POC Glucose > 500 H* 01/12/18 01:35: PT 13.5, INR 1.0, APTT 28.5 01/12/18 01:35: Urine Opiates Screen NEGATIVE, Urine Methadone Screen NEGATIVE, Ur Barbiturates Screen NEGATIVE, Ur Phencyclidine Scrn NEGATIVE, Ur Amphetamines Screen NEGATIVE, U Methamphetamin-MDMA NEGATIVE, U Benzodiazepines Scrn NEGATIVE, Urine Cocaine Screen NEGATIVE, U Cannabinoids Screen NEGATIVE, Ur Drug Screen Comment 01/12/18 08:00: Sodium 146 H, Potassium 4.7, Chloride 116 H, Carbon Dioxide 22.0 , Anion Gap 8, BUN 72 H, Creatinine 3.07 H, Estim Creat Clear Calc 14.10, Est GFR (MDRD) Af Amer 20 L, Est GFR (MDRD) Non-Af 17 L, BUN/Creatinine Ratio 23.5 H , Glucose 247 H, Calcium 6.7 L, Troponin I 2.06 H* 01/12/18 08:00: APTT 58.6 H 01/12/18 08:09: POC Glucose 249 H 01/12/18 09:16: POC Glucose 222 H 01/12/18 11:26: POC Glucose 179 H 01/12/18 12:17: POC Glucose 160 H 01/12/18 14:40: Troponin I Pending 01/12/18 14:45: POC Glucose 128 H Code Visit Inpatient E&M: 54691 Subs Hosp L3
[2018-01-12 09:41] LABS: Bedside Glucose 222 mg/dL (70-110)
[2018-01-12] MEDS: Clopidogrel Bisulfate 300 MG Tablet PO (09:50)
[2018-01-12] MEDS: BENZOCAINE/MENTHOL 1 LOZENGE MUCOUS MEM (10:29)
--- NOTE | 2018-01-12 11:32 | CASEMGMT ---
RN BHARAT ASSESSMENT COMPLETE. LACE STRATA: 3 ADM DX: DKA. TRANSITION PLANNING; CARE COORDINATION: PATIENT IS LETHARGIC AND SLEEPY DURING ASSESSMENT, UNABLE TO FULLY PARTICIPATE. PER SPOUSE, PATIENT DOES CHECK BGL, BUT NOT OFTEN I WOULD LIKE. SHE CAN FEEL WHEN HER BLOOD SUGARS ARE LOW OR HIGH. PER SPOUSE, PATIENT DOES HAVE TESTING SUPPLIES, INSULIN, AND NEEDLES. 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 HOME-GOING NEEDS TBD BY HOSPITAL COURSE. RN BHARAT WILL CHECK BACK WITH PATIENT PRIOR TO DISCHARGE TO FURTHER DISCUSS TRANSITION PLANNING AND CARE COORDINATION NEEDS. DISPOSITION PLAN: HOME WITH SUPPORT OF SPOUSE; HOME-GOING NEEDS TBD. WRITTEN HANDOFF REPORT PROVIDED TO Carlos RAO, ICU/MS2, RN CM
[2018-01-12 11:36] LABS: Bedside Glucose 179 mg/dL (70-110)
[2018-01-12 12:31] LABS: Bedside Glucose 160 mg/dL (70-110)
[2018-01-12 14:50] LABS: Bedside Glucose 128 mg/dL (70-110)
[2018-01-12 16:40] LABS: Bedside Glucose 101 mg/dL (70-110)
--- NOTE | 2018-01-12 16:43 | PCM.CONS.R ---
Consultation - Renal 01/13/18 PCP/ Referring MD: Requesting physician: He Cat Primary care physician: Bird Lujan Reason for Consultation:: Uma on CKD stage 3 - History of Present Illness History of Present Illness: The patient is a 57 year old F with Type 1 DM, CKD stage 3 baseline creatinine 1.3 last seen in my office in 2014, admitted 01/11 for DKA with blood sugar of 600-700, hgb A1C of 10.6. She complained of shortness of breath with severe metabolic acidosis from DKA on admission with pH 7.2, bicarbonate of 14 improved to 22 on 01/12. She had UMA on CKD with creatinine up to 4.1 improved to 3.0 on 01/12 with iv hydration now at 1.7 today. She had an elevated troponin of 1.81 with preserved LVEF on echo. Cardiology was consulted. She denied chest pain. She has a history of proteinuria from poorly controlled diabetes, history of noncompliance with diabetic control. She also had a history of positive UNIQUE with negative anti-ds DNA in 2014 followed by rheumatology in the past. She had nausea, vomiting with hematemesis prior to admit. Now has cough with sore throat started during admission. Respiratory panel ordered. She denied myalgias. Had low grade fever with leukocytosis. - Allergies Allergies: Allergies No Known Allergies Allergy (Verified 01/11/18 19:13) - Current Medications Current Medications: Current Medications Aspirin (Aspirin, Baby) 81 mg PO DAILY@0800 [facility] Last Admin: 01/12/18 08:11 Dose: 81 mg Atorvastatin Calcium (Lipitor) 20 mg PO QHS [facility] Last Admin: 01/12/18 00:29 Dose: 20 mg Clopidogrel Bisulfate (Plavix) 75 mg PO DAILY [facility] Dextrose (D50w Syringe) 0 gm IV X1 PRN; Protocol PRN Reason: Hypoglycemia Dextrose (D50w Syringe) 0 gm IV X1 PRN; Protocol PRN Reason: AGITATION Escitalopram Oxalate (Lexapro) 20 mg PO QHS [facility] Last Admin: 01/12/18 00:29 Dose: 20 mg Gabapentin (Neurontin) 300 mg PO QHS [facility] Last Admin: 01/12/18 00:29 Dose: 300 mg Glucagon () 1 mg IM .X1 PRN PRN Reason: Hypoglycemia Heparin Sodium (Porcine) () 0 units IV UD PRN PRN Reason: Protocol Sodium Chloride () 250 mls @ 15 mls/hr IV .[id number] PRN PRN Reason: SALINE FLUSH Last Admin: 01/12/18 00:30 Dose: 15 mls/hr Pantoprazole Sodium 40 mg/ (Sodium Chloride) 110 mls @ 330 mls/hr IV Q24 [facility] Last Admin: 01/12/18 00:28 Dose: 330 mls/hr Insulin Aspart (Novolog Flexpen (Bkc)) 0 units SC ACHS [facility] PRN Reason: Protocol Last Admin: 01/12/18 16:40 Dose: Not Given Lisinopril (Zestril) 2.5 mg PO QHS [facility] Last Admin: 01/12/18 00:31 Dose: Not Given Magnesium Hydroxide (Milk Of Magnesia) 30 ml PO DAILY PRN PRN PRN Reason: Constipation Ondansetron HCl (Zofran) 4 mg IV Q6H PRN PRN PRN Reason: NAUSEA Sodium Chloride () 5 - 30 ml IV UD PRN PRN Reason: SALINE FLUSH Last Admin: 01/12/18 08:11 Dose: 30 ml Throat Lozenges (Cepacol Sore Throat Lozenge) 1 lozenge MUCOUS MEM Q2H PRN PRN PRN Reason: SORE THROAT Last Admin: 01/12/18 10:29 Dose: 1 lozenge - Past Medical History Past Medical History (Chronic Problems): Chronic Problems Chronic constipation (Chronic) Tobacco use (Chronic) Hyperlipidemia (Chronic) COPD (chronic obstructive pulmonary disease) (Chronic) CKD (chronic kidney disease) stage 3, GFR 30-59 ml/min (Chronic) DM type 1 (diabetes mellitus, type 1) (Chronic) Type II diabetes mellitus (Chronic) - Past Surgical History Surgical History: appendectomy, hysterectomy, - - . - Social History Smoking Status: Current every day smoker - 1 ppd Alcohol: None Drugs: None - Family History Maternal History Items: - - Lupus. No diabetes Paternal History Items: No pertinent history, - - No diabetes Review of Systems Constitutional: Reports: Anorexia, Chills, Fever. Denies: Malaise HEENT: Reports: Sore Throat, - - hoarseness Cardiovascular: Denies: Chest Pain Respiratory: Reports: Cough, Shortness of Breath Gastrointestinal: Reports: Nausea, Vomiting. Denies: Abdominal Pain, Constipation, Diarrhea Genitourinary: Denies: Dysuria Skin: Reports: Rash Psychiatric: Reports: Anxiety Endocrine: Reports: Polyuria Hematologic/ Lymphatic: Reports: Anemia Patient Problems: Active and Suspected Problems DKA (diabetic ketoacidoses) (Acute) NSTEMI (non-ST elevated myocardial infarction) (Acute) - Physical Exam General: Alert, Oriented x3, Cooperative, No apparent distress, - - thin HEENT: PERRLA, EOMI, - - hoarseness Oral: Dry Mucosa, - - no mouth plaques Neck: Supple, No JVD Lungs: Clear to auscultation Cardiovascular: Regular rate Abdomen: Bowel Sounds Present, Soft, Non Tender, Non-Distended Extremities: No edema Skin: No rashes Musculoskeletal: No Tenderness to Palpation of Joints or Extremities, - Neurological: Cranial nerves II-XII grossly intact Psych/Mental Status: Normal Affect, Appropriate, Alert and oriented to time, place, person, mood and affect Vital Signs Temp Pulse Resp BP Pulse Ox 98.7 F 78 29 H 119/64 93 01/12/18 12:01 01/12/18 16:00 01/12/18 16:00 01/12/18 16:00 01/12/18 16:00 Oxygen Delivery Method Room Air Weight: 44.7 kg Body Mass Index (BMI) 15.9 Finger Stick Blood Glucose 249 Intake and Output for Last 24 Hours 01/10/18 01/11/18 01/12/18 22:59 23:59 23:59 Intake Total 3920.8 / 3920.8 Output Total 950 / 950 Balance 2970.8 / 2970.8 Microbiology Past 72 Hours 01/12/18 08:20 Stool Occult Blood (DANYELL) - Final Stool Laboratory Tests Past 24 Hrs 01/11/18 01/12/18 01/12/18 22:45 00:08 00:10 WBC RBC Hgb Hct MCV MCH MCHC RDW RDW Differential Plt Count MPV PT INR APTT Specimen Type Sample Site pH Bicarbonate Actual POC Total CO2 Base Excess O2 Saturation ABG pCO2 ABG pO2 Demond Test O2 Delivery Device Blood Gas Notified Whom Sodium Cancelled Potassium Cancelled Chloride Cancelled Carbon Dioxide Cancelled Anion Gap Cancelled BUN Cancelled Creatinine Cancelled Estim Creat Clear Calc Est GFR (MDRD) Af Amer Cancelled Est GFR (MDRD) Non-Af Cancelled BUN/Creatinine Ratio Cancelled Glucose 759 H* Cancelled Hemoglobin A1c Calcium Cancelled Troponin I 2.18 H* Urine Opiates Screen Urine Methadone Screen Ur Barbiturates Screen Ur Phencyclidine Scrn Ur Amphetamines Screen U Methamphetamin-MDMA U Benzodiazepines Scrn Urine Cocaine Screen U Cannabinoids Screen Ur Drug Screen Comment Acetone Level MRSA (PCR) Negative 01/12/18 01/12/18 01/12/18 00:10 00:10 00:10 WBC RBC Hgb Hct MCV MCH MCHC RDW RDW Differential Plt Count MPV PT INR APTT Specimen Type Sample Site pH Bicarbonate Actual POC Total CO2 Base Excess O2 Saturation ABG pCO2 ABG pO2 Demond Test O2 Delivery Device Blood Gas Notified Whom Sodium 138 Potassium 4.6 Chloride 101 Carbon Dioxide 16.0 L Anion Gap 21 H BUN 86 H Creatinine 4.09 H Estim Creat Clear Calc 10.58 Est GFR (MDRD) Af Amer 14 L Est GFR (MDRD) Non-Af 12 L BUN/Creatinine Ratio 21.0 H Glucose 606 H* Hemoglobin A1c 10.6 H Calcium 6.9 L Troponin I Urine Opiates Screen Urine Methadone Screen Ur Barbiturates Screen Ur Phencyclidine Scrn Ur Amphetamines Screen U Methamphetamin-MDMA U Benzodiazepines Scrn Urine Cocaine Screen U Cannabinoids Screen Ur Drug Screen Comment Acetone Level MODERATE H MRSA (PCR) 01/12/18 01/12/18 01/12/18 00:26 01:35 01:35 WBC RBC Hgb Hct MCV MCH MCHC RDW RDW Differential Plt Count MPV PT 13.5 INR 1.0 APTT 28.5 Specimen Type ART Sample Site L Radial pH 7.21 L Bicarbonate Actual 14.0 L POC Total CO2 15 Base Excess -14 L O2 Saturation 92 L ABG pCO2 34.7 L ABG pO2 77 Demond Test POS O2 Delivery Device Room Air Blood Gas Notified Whom HOSP MD Sodium Potassium Chloride Carbon Dioxide Anion Gap BUN Creatinine Estim Creat Clear Calc Est GFR (MDRD) Af Amer Est GFR (MDRD) Non-Af BUN/Creatinine Ratio Glucose Hemoglobin A1c Calcium Troponin I Urine Opiates Screen NEGATIVE Urine Methadone Screen NEGATIVE Ur Barbiturates Screen NEGATIVE Ur Phencyclidine Scrn NEGATIVE Ur Amphetamines Screen NEGATIVE U Methamphetamin-MDMA NEGATIVE U Benzodiazepines Scrn NEGATIVE Urine Cocaine Screen NEGATIVE U Cannabinoids Screen NEGATIVE Ur Drug Screen Comment Acetone Level MRSA (PCR) 01/12/18 01/12/18 01/12/18 04:15 04:15 08:00 WBC 15.0 H RBC 2.74 L Hgb 8.3 L Hct 24.5 L MCV 89.4 MCH 30.3 MCHC 33.9 RDW 12.0 RDW Differential 38.9 Plt Count 179 MPV 9.9 PT INR APTT Specimen Type Sample Site pH Bicarbonate Actual POC Total CO2 Base Excess O2 Saturation ABG pCO2 ABG pO2 Demond Test O2 Delivery Device Blood Gas Notified Whom Sodium 143 146 H Potassium 5.0 4.7 Chloride 109 H 116 H Carbon Dioxide 22.0 22.0 Anion Gap 12 8 BUN 75 H 72 H Creatinine 3.38 H 3.07 H Estim Creat Clear Calc 12.80 14.10 Est GFR (MDRD) Af Amer 18 L 20 L Est GFR (MDRD) Non-Af 15 L 17 L BUN/Creatinine Ratio 22.2 H 23.5 H Glucose 291 H 247 H Hemoglobin A1c Calcium 6.7 L 6.7 L Troponin I 2.36 H* 2.06 H* Urine Opiates Screen Urine Methadone Screen Ur Barbiturates Screen Ur Phencyclidine Scrn Ur Amphetamines Screen U Methamphetamin-MDMA U Benzodiazepines Scrn Urine Cocaine Screen U Cannabinoids Screen Ur Drug Screen Comment Acetone Level MRSA (PCR) 01/12/18 01/12/18 08:00 14:40 WBC RBC Hgb Hct MCV MCH MCHC RDW RDW Differential Plt Count MPV PT INR APTT 58.6 H Specimen Type Sample Site pH Bicarbonate Actual POC Total CO2 Base Excess O2 Saturation ABG pCO2 ABG pO2 Demond Test O2 Delivery Device Blood Gas Notified Whom Sodium Potassium Chloride Carbon Dioxide Anion Gap BUN Creatinine Estim Creat Clear Calc Est GFR (MDRD) Af Amer Est GFR (MDRD) Non-Af BUN/Creatinine Ratio Glucose Hemoglobin A1c Calcium Troponin I 1.81 H* Urine Opiates Screen Urine Methadone Screen Ur Barbiturates Screen Ur Phencyclidine Scrn Ur Amphetamines Screen U Methamphetamin-MDMA U Benzodiazepines Scrn Urine Cocaine Screen U Cannabinoids Screen Ur Drug Screen Comment Acetone Level MRSA (PCR) POC Glucose 01/12/18 01/12/18 01/12/18 16:36 14:45 12:17 POC Glucose 101 128 H 160 H 01/12/18 01/12/18 01/12/18 11:26 09:16 08:09 POC Glucose 179 H 222 H 249 H 01/12/18 01/12/18 01/12/18 07:09 06:00 05:08 POC Glucose 261 H 234 H 260 H 01/12/18 01/12/18 01/12/18 04:11 03:04 02:03 POC Glucose 313 H 332 H 408 H 01/12/18 01/11/18 01:04 22:32 POC Glucose > 500 H* > 500 H* Clinical Impression(s) from Imaging Studies Chest X-Ray 01/11/18 19:30 IMPRESSION: No acute cardiopulmonary abnormalities or changes. Stable COPD. Electronically Signed: Otilia Paul MD at 19:54 EDT Tel Direct: [phone], Service support , Assessment/Plan Active and Suspected Problems DKA (diabetic ketoacidoses) (Acute) NSTEMI (non-ST elevated myocardial infarction) (Acute) 1. UMA on CKD Stage 3 due to dehydration from DKA. Baseline creatinine 1.4, 4.14 on admit improved to 1.79 with hydration 2. Nausea, vomiting improved 3. DKA with severe metabolic acidosis, SOB. 4. Cough, resp panel pending 5. NSTEMI cardiology following 6. anemia check iron studies 7. Hx positive UNIQUE
--- NOTE | 2018-01-12 16:49 | CON.PCM_ITS ---
Consultation - Renal 01/13/18 PCP/ Referring MD: Requesting physician: He Cat Primary care physician: Bird Lujan Reason for Consultation:: Uma on CKD stage 3 - History of Present Illness History of Present Illness: The patient is a 57 year old F with Type 1 DM, CKD stage 3 baseline creatinine 1.3 last seen in my office in 2014, admitted 01/11 for DKA with blood sugar of 600-700, hgb A1C of 10.6. She complained of shortness of breath with severe metabolic acidosis from DKA on admission with pH 7.2, bicarbonate of 14 improved to 22 on 01/12. She had UMA on CKD with creatinine up to 4.1 improved to 3.0 on 01/12 with iv hydration now at 1.7 today. She had an elevated troponin of 1.81 with preserved LVEF on echo. Cardiology was consulted. She denied chest pain. She has a history of proteinuria from poorly controlled diabetes, history of noncompliance with diabetic control. She also had a history of positive UNIQUE with negative anti-ds DNA in 2014 followed by rheumatology in the past. She had nausea, vomiting with hematemesis prior to admit. Now has cough with sore throat started during admission. Respiratory panel ordered. She denied myalgias. Had low grade fever with leukocytosis. - Allergies Allergies: Allergies No Known Allergies Allergy (Verified 01/11/18 19:13) - Current Medications Current Medications: Current Medications Aspirin (Aspirin, Baby) 81 mg PO DAILY@0800 [facility] Last Admin: 01/12/18 08:11 Dose: 81 mg Atorvastatin Calcium (Lipitor) [address] [facility] Last Admin: 01/12/18 00:29 Dose: 20 mg Clopidogrel Bisulfate (Plavix) [address] [facility] Dextrose (D50w Syringe) 0 gm IV X1 PRN; Protocol PRN Reason: Hypoglycemia Dextrose (D50w Syringe) 0 gm IV X1 PRN; Protocol PRN Reason: AGITATION Escitalopram Oxalate (Lexapro) [address] [facility] Last Admin: 01/12/18 00:29 Dose: 20 mg Gabapentin (Neurontin) [address] [facility] Last Admin: 01/12/18 00:29 Dose: 300 mg Glucagon () 1 mg IM .X1 PRN PRN Reason: Hypoglycemia Heparin Sodium (Porcine) () 0 units IV UD PRN PRN Reason: Protocol Sodium Chloride () 250 mls @ 15 mls/hr IV .[id number] PRN PRN Reason: SALINE FLUSH Last Admin: 01/12/18 00:30 Dose: 15 mls/hr Pantoprazole Sodium 40 mg/ (Sodium Chloride) 110 mls @ 330 mls/hr IV Q24 [facility] Last Admin: 01/12/18 00:28 Dose: 330 mls/hr Insulin Aspart (Novolog Flexpen (Bkc)) 0 units SC ACHS LANCE PRN Reason: Protocol Last Admin: 01/12/18 16:40 Dose: Not Given Lisinopril (Zestril) 2.[address] [facility] Last Admin: 01/12/18 00:31 Dose: Not Given Magnesium Hydroxide (Milk Of Magnesia) 30 ml PO DAILY PRN PRN PRN Reason: Constipation Ondansetron HCl (Zofran) 4 mg IV Q6H PRN PRN PRN Reason: NAUSEA Sodium Chloride () 5 - 30 ml IV UD PRN PRN Reason: SALINE FLUSH Last Admin: 01/12/18 08:11 Dose: 30 ml Throat Lozenges (Cepacol Sore Throat Lozenge) 1 lozenge MUCOUS MEM Q2H PRN PRN PRN Reason: SORE THROAT Last Admin: 01/12/18 10:29 Dose: 1 lozenge - Past Medical History Past Medical History (Chronic Problems): Chronic Problems Chronic constipation (Chronic) Tobacco use (Chronic) Hyperlipidemia (Chronic) COPD (chronic obstructive pulmonary disease) (Chronic) CKD (chronic kidney disease) stage 3, GFR 30-59 ml/min (Chronic) DM type 1 (diabetes mellitus, type 1) (Chronic) Type II diabetes mellitus (Chronic) - Past Surgical History Surgical History: appendectomy, hysterectomy, - - . - Social History Smoking Status: Current every day smoker - 1 ppd Alcohol: None Drugs: None - Family History Maternal History Items: - - Lupus. No diabetes Paternal History Items: No pertinent history, - - No diabetes Review of Systems Constitutional: Reports: Anorexia, Chills, Fever. Denies: Malaise HEENT: Reports: Sore Throat, - - hoarseness Cardiovascular: Denies: Chest Pain Respiratory: Reports: Cough, Shortness of Breath Gastrointestinal: Reports: Nausea, Vomiting. Denies: Abdominal Pain, Constipation, Diarrhea Genitourinary: Denies: Dysuria Skin: Reports: Rash Psychiatric: Reports: Anxiety Endocrine: Reports: Polyuria Hematologic/ Lymphatic: Reports: Anemia Patient Problems: Active and Suspected Problems DKA (diabetic ketoacidoses) (Acute) NSTEMI (non-ST elevated myocardial infarction) (Acute) - Physical Exam General: Alert, Oriented x3, Cooperative, No apparent distress, - - thin HEENT: PERRLA, EOMI, - - hoarseness Oral: Dry Mucosa, - - no mouth plaques Neck: Supple, No JVD Lungs: Clear to auscultation Cardiovascular: Regular rate Abdomen: Bowel Sounds Present, Soft, Non Tender, Non-Distended Extremities: No edema Skin: No rashes Musculoskeletal: No Tenderness to Palpation of Joints or Extremities, - Neurological: Cranial nerves II-XII grossly intact Psych/Mental Status: Normal Affect, Appropriate, Alert and oriented to time, place, person, mood and affect Vital Signs Temp Pulse Resp BP Pulse Ox 98.7 F 78 29 H 119/64 93 01/12/18 12:01 01/12/18 16:00 01/12/18 16:00 01/12/18 16:00 01/12/18 16:00 Oxygen Delivery Method Room Air Weight: 44.7 kg Body Mass Index (BMI) 15.9 Finger Stick Blood Glucose 249 Intake and Output for Last 24 Hours 01/10/18 01/11/18 01/12/18 22:59 23:59 23:59 Intake Total 3920.8 / 3920.8 Output Total 950 / 950 Balance 2970.8 / 2970.8 Microbiology Past 72 Hours 01/12/18 08:20 Stool Occult Blood (DANYELL) - Final Stool Laboratory Tests Past 24 Hrs 01/11/18 01/12/18 01/12/18 22:45 00:08 00:10 WBC RBC Hgb Hct MCV MCH MCHC RDW RDW Differential Plt Count MPV PT INR APTT Specimen Type Sample Site pH Bicarbonate Actual POC Total CO2 Base Excess O2 Saturation ABG pCO2 ABG pO2 Demond Test O2 Delivery Device Blood Gas Notified Whom Sodium Cancelled Potassium Cancelled Chloride Cancelled Carbon Dioxide Cancelled Anion Gap Cancelled BUN Cancelled Creatinine Cancelled Estim Creat Clear Calc Est GFR (MDRD) Af Amer Cancelled Est GFR (MDRD) Non-Af Cancelled BUN/Creatinine Ratio Cancelled Glucose 759 H* Cancelled Hemoglobin A1c Calcium Cancelled Troponin I 2.18 H* Urine Opiates Screen Urine Methadone Screen Ur Barbiturates Screen Ur Phencyclidine Scrn Ur Amphetamines Screen U Methamphetamin-MDMA U Benzodiazepines Scrn Urine Cocaine Screen U Cannabinoids Screen Ur Drug Screen Comment Acetone Level MRSA (PCR) Negative 01/12/18 01/12/18 01/12/18 00:10 00:10 00:10 WBC RBC Hgb Hct MCV MCH MCHC RDW RDW Differential Plt Count MPV PT INR APTT Specimen Type Sample Site pH Bicarbonate Actual POC Total CO2 Base Excess O2 Saturation ABG pCO2 ABG pO2 Demond Test O2 Delivery Device Blood Gas Notified Whom Sodium 138 Potassium 4.6 Chloride 101 Carbon Dioxide 16.0 L Anion Gap 21 H BUN 86 H Creatinine 4.09 H Estim Creat Clear Calc 10.58 Est GFR (MDRD) Af Amer 14 L Est GFR (MDRD) Non-Af 12 L BUN/Creatinine Ratio 21.0 H Glucose 606 H* Hemoglobin A1c 10.6 H Calcium 6.9 L Troponin I Urine Opiates Screen Urine Methadone Screen Ur Barbiturates Screen Ur Phencyclidine Scrn Ur Amphetamines Screen U Methamphetamin-MDMA U Benzodiazepines Scrn Urine Cocaine Screen U Cannabinoids Screen Ur Drug Screen Comment Acetone Level MODERATE H MRSA (PCR) 01/12/18 01/12/18 01/12/18 00:26 01:35 01:35 WBC RBC Hgb Hct MCV MCH MCHC RDW RDW Differential Plt Count MPV PT 13.5 INR 1.0 APTT 28.5 Specimen Type ART Sample Site L Radial pH 7.21 L Bicarbonate Actual 14.0 L POC Total CO2 15 Base Excess -14 L O2 Saturation 92 L ABG pCO2 34.7 L ABG pO2 77 Demond Test POS O2 Delivery Device Room Air Blood Gas Notified Whom HOSP MD Sodium Potassium Chloride Carbon Dioxide Anion Gap BUN Creatinine Estim Creat Clear Calc Est GFR (MDRD) Af Amer Est GFR (MDRD) Non-Af BUN/Creatinine Ratio Glucose Hemoglobin A1c Calcium Troponin I Urine Opiates Screen NEGATIVE Urine Methadone Screen NEGATIVE Ur Barbiturates Screen NEGATIVE Ur Phencyclidine Scrn NEGATIVE Ur Amphetamines Screen NEGATIVE U Methamphetamin-MDMA NEGATIVE U Benzodiazepines Scrn NEGATIVE Urine Cocaine Screen NEGATIVE U Cannabinoids Screen NEGATIVE Ur Drug Screen Comment Acetone Level MRSA (PCR) 01/12/18 01/12/18 01/12/18 04:15 04:15 08:00 WBC 15.0 H RBC 2.74 L Hgb 8.3 L Hct 24.5 L MCV 89.4 MCH 30.3 MCHC 33.9 RDW 12.0 RDW Differential 38.9 Plt Count 179 MPV 9.9 PT INR APTT Specimen Type Sample Site pH Bicarbonate Actual POC Total CO2 Base Excess O2 Saturation ABG pCO2 ABG pO2 Demond Test O2 Delivery Device Blood Gas Notified Whom Sodium 143 146 H Potassium 5.0 4.7 Chloride 109 H 116 H Carbon Dioxide 22.0 22.0 Anion Gap 12 8 BUN 75 H 72 H Creatinine 3.38 H 3.07 H Estim Creat Clear Calc 12.80 14.10 Est GFR (MDRD) Af Amer 18 L 20 L Est GFR (MDRD) Non-Af 15 L 17 L BUN/Creatinine Ratio 22.2 H 23.5 H Glucose 291 H 247 H Hemoglobin A1c Calcium 6.7 L 6.7 L Troponin I 2.36 H* 2.06 H* Urine Opiates Screen Urine Methadone Screen Ur Barbiturates Screen Ur Phencyclidine Scrn Ur Amphetamines Screen U Methamphetamin-MDMA U Benzodiazepines Scrn Urine Cocaine Screen U Cannabinoids Screen Ur Drug Screen Comment Acetone Level MRSA (PCR) 01/12/18 01/12/18 08:00 14:40 WBC RBC Hgb Hct MCV MCH MCHC RDW RDW Differential Plt Count MPV PT INR APTT 58.6 H Specimen Type Sample Site pH Bicarbonate Actual POC Total CO2 Base Excess O2 Saturation ABG pCO2 ABG pO2 Demond Test O2 Delivery Device Blood Gas Notified Whom Sodium Potassium Chloride Carbon Dioxide Anion Gap BUN Creatinine Estim Creat Clear Calc Est GFR (MDRD) Af Amer Est GFR (MDRD) Non-Af BUN/Creatinine Ratio Glucose Hemoglobin A1c Calcium Troponin I 1.81 H* Urine Opiates Screen Urine Methadone Screen Ur Barbiturates Screen Ur Phencyclidine Scrn Ur Amphetamines Screen U Methamphetamin-MDMA U Benzodiazepines Scrn Urine Cocaine Screen U Cannabinoids Screen Ur Drug Screen Comment Acetone Level MRSA (PCR) POC Glucose 01/12/18 01/12/18 01/12/18 16:36 14:45 12:17 POC Glucose 101 128 H 160 H 01/12/18 01/12/18 01/12/18 11:26 09:16 08:09 POC Glucose 179 H 222 H 249 H 01/12/18 01/12/18 01/12/18 07:09 06:00 05:08 POC Glucose 261 H 234 H 260 H 01/12/18 01/12/18 01/12/18 04:11 03:04 02:03 POC Glucose 313 H 332 H 408 H 01/12/18 01/11/18 01:04 22:32 POC Glucose > 500 H* > 500 H* Clinical Impression(s) from Imaging Studies Chest X-Ray 01/11/18 19:30 IMPRESSION: No acute cardiopulmonary abnormalities or changes. Stable COPD. Electronically Signed: Otilia Paul MD at 19:54 EDT Tel Direct: [phone], Service support , Assessment/Plan Active and Suspected Problems DKA (diabetic ketoacidoses) (Acute) NSTEMI (non-ST elevated myocardial infarction) (Acute) 1. UMA on CKD Stage 3 due to dehydration from DKA. Baseline creatinine 1.4, 4.14 on admit improved to 1.79 with hydration 2. Nausea, vomiting improved 3. DKA with severe metabolic acidosis, SOB. 4. Cough, resp panel pending 5. NSTEMI cardiology following 6. anemia check iron studies 7. Hx positive UNIQUE
[2018-01-12] MEDS: 0.9% Normal Saline 1,000 ML 75 ML IV (17:20)
[2018-01-12] MEDS: Ceftriaxone 1 GM/50 ML BAG IV (18:58)
[2018-01-12 19:00] LABS: Protein, Urine (Random) 78.9 mg/dL (<11.9)
[2018-01-12] MEDS: Phenol/Sodium Phenolate 180ML 3 SPRAY MM ×2 (20:55→23:52)
[2018-01-12] MEDS: Lisinopril 2.5 MG Tablet PO (21:01)
[2018-01-12 21:02] LABS: Anion Gap 7 (5-15); BUN 56 mg/dL (7-18); BUN/Creat Ratio 25.9 RATIO (10-20); Calcium,Total 7.4 mg/dL (8.5-10.1); Chloride 114 mmol/L (98-107); Creatinine, Serum 2.16 mg/dL (0.55-1.02); EST Glomerular Filtration Rate 25 mL/min (>60); Est Glom Filt Rate - Afr Amer 30 mL/min (>60); Estimated Creatinine Clearance 20.03 ml/min; Glucose 72 mg/dL (74-106); Potassium 4.5 mmol/L (3.5-5.1); Sodium Level 145 mmol/L (136-145)
[2018-01-13] VITALS (21 sets, daily range): BP systolic 131–170; BP diastolic 47–74; PULSE 62–79; RESP 15–24; TEMP 36.4–38.7; O2SAT 91–98
[2018-01-13] MEDS: Acetaminophen 325 MG Tablet 650 MG PO ×2 (00:30→06:31)
[2018-01-13] MEDS: Sodium Chloride 0.65% 1 SPRAY SPRAY.BTL 2 SPRAY NASAL (00:31)
[2018-01-13 00:40] LABS: Bedside Glucose 76 mg/dL (70-110)
[2018-01-13] MEDS: 0.9% Normal Saline 1,000 ML 75 ML IV ×2 (05:37→17:37)
[2018-01-13 06:35] LABS: Bedside Glucose 363 mg/dL (70-110)
[2018-01-13] MEDS: Phenol/Sodium Phenolate 180ML 3 SPRAY MM (06:35)
[2018-01-13 06:48] LABS: Anion Gap 9 (5-15); BUN 48 mg/dL (7-18); BUN/Creat Ratio 26.8 RATIO (10-20); Calcium,Total 7.5 mg/dL (8.5-10.1); Chloride 112 mmol/L (98-107); Creatinine, Serum 1.79 mg/dL (0.55-1.02); EST Glomerular Filtration Rate 31 mL/min (>60); Est Glom Filt Rate - Afr Amer 37 mL/min (>60); Glucose 281 mg/dL (74-106); Sodium Level 143 mmol/L (136-145)
[2018-01-13 07:05] LABS: Hemoglobin A1c 10.5 % (4.2-6.3)
--- NOTE | 2018-01-13 08:14 | PN.CARD_ITS ---
Subjectve: Patient seen and evaluated and appears to be doing well other than a possible upper respiratory tract infection. Objective: Vital Signs Temp Pulse Resp BP Pulse Ox 99.6 F H 77 16 142/65 H 95 01/13/18 05:00 01/13/18 07:04 01/13/18 07:00 01/13/18 07:00 01/13/18 07:00 Oxygen Flow Rate (L/min) 2 Oxygen Delivery Method Nasal Cannula Weight: 113 lb 5.082 oz Body Mass Index (BMI) 15.9 Finger Stick Blood Glucose 249 Intake and Output for Last 24 Hours 01/11/18 01/12/18 01/13/18 23:59 23:59 23:59 Intake Total 4812.8 / 4812.8 434 / 434 Output Total 1600 / 1600 500 / 500 Balance 3212.8 / 3212.8 -66 / -66 General: Awake, Alert, Oriented x 3, Ill Appearing HEENT: PERRL, EOMI, Sclera Non Icteric Neck: Supple, Good ROM, No Lymph Node Enlargement Lungs: Clear to auscultation Cardiovascular: Regular Rhythm, Normal S1, Normal S2, No Murmurs, No Rubs, No Gallops Vascular: No Carotid Bruits, Normal Femoral Pulses, Normal Radial Pulses, Normal Dorsalis Pedal Pulse, Normal Posterior Tibial Pulses Abdomen: Bowel Sounds Present, Soft, Non Tender, No HSM, No Organomegaly Extremities: No Cyanosis, No Clubbing, No edema Neurological: No Focal Motor or Sensory Deficit Psych/Mental Status: Appropriate 01/12/18 08:00: Sodium 146 H, Potassium 4.7, Chloride 116 H, Carbon Dioxide 22.0 , Anion Gap 8, BUN 72 H, Creatinine 3.07 H, Est GFR (MDRD) Af Amer 20 L, Est GFR (MDRD) Non-Af 17 L, BUN/Creatinine Ratio 23.5 H, Glucose 247 H, Calcium 6.7 L, Troponin I 2.06 H* 01/12/18 08:00: APTT 58.6 H 01/12/18 14:40: Troponin I 1.81 H* 01/12/18 20:30: Sodium 145, Potassium 4.5, Chloride 114 H, Carbon Dioxide 24.0, Anion Gap 7, BUN 56 H, Creatinine 2.16 H, Est GFR (MDRD) Af Amer 30 L, Est GFR ( MDRD) Non-Af 25 L, BUN/Creatinine Ratio 25.9 H, Glucose 72 L, Calcium 7.4 L 01/13/18 04:50: Hemoglobin A1c 10.5 H 01/13/18 04:50: Sodium 143, Potassium 5.0, Chloride 112 H, Carbon Dioxide 22.0, Anion Gap 9, BUN 48 H, Creatinine 1.79 H, Est GFR (MDRD) Af Amer 37 L, Est GFR ( MDRD) Non-Af 31 L, BUN/Creatinine Ratio 26.8 H, Glucose 281 H, Calcium 7.5 L Rhythm: EKG: Normal sinus rhythm with no acute changes ECHO: Preserved ejection fraction of 65% Assessment/Plan 1. Non-ST elevation myocardial infarction. Patient presents with mild confusion and noted to be in diabetic ketoacidosis and has an abnormal cardiac enzyme pattern. Patient also has renal dysfunction. At this time the focus would be on getting her blood sugar under control as well as her electrolytes rectified. An echocardiogram demonstrated that her ejection fraction was noted to be normal. She will more than likely need an evaluation of her coronary anatomy before being discharged. We will continue with intravenous fluid to see whether this would improve her renal function. In the meantime would like to start her on aspirin clopidogrel as well as low-dose beta-darwin. 2. Hypertension Continue treatment with antihypertensive with the beta-darwin at this time. 3. Risk factor modification Her diabetic status should be appropriately controlled as well as lipid levels should also be obtained and then further recommendations will be made depending on the levels. Thank you for allowing me to participate in the care of your patient. Please don't hesitate to call if any issues arise
[2018-01-13] MEDS: Aspirin 81 MG TAB.CHEW PO (08:52)
[2018-01-13] MEDS: Clopidogrel Bisulfate 75 MG Tablet PO (08:53)
[2018-01-13] MEDS: Ceftriaxone 1 GM/50 ML BAG IV (08:57)
--- NOTE | 2018-01-13 09:18 | PCM.PN.HOSP ---
Patient Problems: Active and Suspected Problems DKA (diabetic ketoacidoses) (Acute) NSTEMI (non-ST elevated myocardial infarction) (Acute) Subjective: Patient had low-grade temperature: T-max 101.7 at 12 midnight. Urine culture prelim shows Streptococcus agalactiae and staph aureus, probably MSSA as MRSA nasal screen is negative. Vitals/I&O's: Vital Signs Temp Pulse Resp BP Pulse Ox 99.7 F H 74 18 139/62 H 96 01/13/18 08:00 01/13/18 09:00 01/13/18 09:00 01/13/18 09:00 01/13/18 09:00 Oxygen Flow Rate (L/min) 2 Oxygen Delivery Method Room Air Weight: 113 lb 5.082 oz Body Mass Index (BMI) 15.9 Finger Stick Blood Glucose 249 Intake and Output for Last 24 Hours 01/11/18 01/12/18 01/13/18 23:59 23:59 23:59 Intake Total 4812.8 / 4812.8 434 / 434 Output Total 1600 / 1600 500 / 500 Balance 3212.8 / 3212.8 -66 / -66 General: Alert, Oriented x3, Cooperative HEENT: Atraumatic, PERRLA, EOMI, Normocephalic Neck: Supple, No JVD, Negative Carotid Bruits Lungs: Clear to auscultation, Normal air movement Cardiovascular: Regular rate, Regular Rhythm, Normal S1, Normal S2, No murmurs Abdomen: Bowel Sounds Present, Soft, Non Tender, Non-Distended Extremities: No edema, Capillary Refill Less than 3 Seconds Skin: No rashes, No breakdown Musculoskeletal: No Tenderness to Palpation of Joints or Extremities, Arthritic Changes Neurological: Cranial nerves II-XII grossly intact Psych/Mental Status: Normal Affect, Appropriate Microbiology Past 72 Hours 01/13/18 02:10 Mucosa - Nose Influenza Types A,B Direct FA (DANYELL) - Final 01/11/18 22:30 Blood Culture (Wb) - Anticubital Right Blood Culture - Preliminary 01/12/18 08:20 Stool Stool Occult Blood (DANYELL) - Final Laboratory Results 01/12/18 09:16: POC Glucose 222 H 01/12/18 11:26: POC Glucose 179 H 01/12/18 12:17: POC Glucose 160 H 01/12/18 14:40: Troponin I 1.81 H* 01/12/18 14:45: POC Glucose 128 H 01/12/18 16:36: POC Glucose 101 01/12/18 17:30: Urine Creatinine 88.80 01/12/18 17:30: U Random Total Protein 78.9 H 01/12/18 20:30: Sodium 145, Potassium 4.5, Chloride 114 H, Carbon Dioxide 24.0, Anion Gap 7, BUN 56 H, Creatinine 2.16 H, Estim Creat Clear Calc 20.03, Est GFR (MDRD) Af Amer 30 L, Est GFR (MDRD) Non-Af 25 L, BUN/Creatinine Ratio 25.9 H, Glucose 72 L, Calcium 7.4 L 01/12/18 21:01: POC Glucose 76 01/13/18 04:50: Hemoglobin A1c 10.5 H 01/13/18 04:50: UNIQUE Screen Pending 01/13/18 04:50: Sodium 143, Potassium 5.0, Chloride 112 H, Carbon Dioxide 22.0, Anion Gap 9, BUN 48 H, Creatinine 1.79 H, Estim Creat Clear Calc 27.80, Est GFR (MDRD) Af Amer 37 L, Est GFR (MDRD) Non-Af 31 L, BUN/Creatinine Ratio 26.8 H, Glucose 281 H, Calcium 7.5 L 01/13/18 06:28: POC Glucose 363 H Current Medications Acetaminophen (Tylenol) 650 mg PO Q4H PRN PRN PRN Reason: pain/fever Last Admin: 01/13/18 06:31 Dose: 650 mg Aspirin (Aspirin, Baby) 81 mg PO DAILY@0800 [facility] Last Admin: 01/13/18 08:52 Dose: 81 mg Atorvastatin Calcium (Lipitor) 20 mg PO QHS [facility] Last Admin: 01/12/18 21:02 Dose: 20 mg Clopidogrel Bisulfate (Plavix) 75 mg PO DAILY [facility] Last Admin: 01/13/18 08:53 Dose: 75 mg Dextrose (D50w Syringe) 0 gm IV X1 PRN; Protocol PRN Reason: Hypoglycemia Dextrose (D50w Syringe) 0 gm IV X1 PRN; Protocol PRN Reason: AGITATION Escitalopram Oxalate (Lexapro) 20 mg PO QHS [facility] Last Admin: 01/12/18 21:02 Dose: 20 mg Gabapentin (Neurontin) 300 mg PO QHS [facility] Last Admin: 01/12/18 21:02 Dose: 300 mg Glucagon () 1 mg IM .X1 PRN PRN Reason: Hypoglycemia Heparin Sodium (Porcine) () 0 units IV UD PRN PRN Reason: Protocol Sodium Chloride () 250 mls @ 15 mls/hr IV .[id number] PRN PRN Reason: SALINE FLUSH Last Admin: 01/12/18 00:30 Dose: 15 mls/hr Sodium Chloride () 1,000 mls @ 75 mls/hr IV .[id number] [facility] Last Admin: 01/13/18 05:37 Dose: 75 mls/hr Ceftriaxone Sodium (Rocephin) 1 gm in 50 mls @ 100 mls/hr IV Q24 [facility] Last Admin: 01/13/18 08:57 Dose: 100 mls/hr Insulin Aspart (Novolog Flexpen (Bkc)) 0 units SC ACHS LANCE PRN Reason: Protocol Last Admin: 01/13/18 06:31 Dose: 8 u Lisinopril (Zestril) 2.5 mg PO QHS [facility] Last Admin: 01/12/18 21:01 Dose: 2.5 mg Magnesium Hydroxide (Milk Of Magnesia) 30 ml PO DAILY PRN PRN PRN Reason: Constipation Metoprolol Tartrate (Lopressor (Beta Erwin)) 25 mg PO BID [facility] Ondansetron HCl (Zofran) 4 mg IV Q6H PRN PRN PRN Reason: NAUSEA Pantoprazole Sodium (Protonix) 40 mg PO DAILY [facility] Last Admin: 01/13/18 09:13 Dose: Not Given Phenol/Menthol (Chloraseptic (Bkc)) 3 spray MM Q2H PRN PRN PRN Reason: SORE THROAT Last Admin: 01/13/18 06:35 Dose: 3 sprays Sodium Chloride () 5 - 30 ml IV UD PRN PRN Reason: SALINE FLUSH Last Admin: 01/12/18 17:20 Dose: 20 ml Sodium Chloride ([place] Nasal [place]) 2 spray NASAL TID PRN PRN PRN Reason: NASAL DRYNESS Last Admin: 01/13/18 00:31 Dose: 2 spray Throat Lozenges (Cepacol Sore Throat Lozenge) 1 lozenge MUCOUS MEM Q2H PRN PRN PRN Reason: SORE THROAT Last Admin: 01/12/18 10:29 Dose: 1 lozenge Assessment/Plan Active and Suspected Problems DKA (diabetic ketoacidoses) (Acute) NSTEMI (non-ST elevated myocardial infarction) (Acute) This is a 57 year old female type 1 diabetes mellitus, CKD III, HTN, COPD and dyslipidemia admitted for DKA. 1) DKA history of type 1 diabetes mellitus.: The patient is being admitted in the ICU. Anion gap is closed. Bicarb 22. Blood sugar is in the range of 100-150 mg percent. Insulin drip stopped and switched to Accu-Chek before meals and at bedtime and cover with NovoLog sliding scale. On Levemir and adjust with regard to hypoglycemia. Blood pressure is recovered. Urine output 1600 mL in 24 hours. Continue IV fluid. 2) NSTEMI: The patient has been smoking a pack per day since age of 13. She is occasional drinker. Possible secondary to type II IL vs clearance from UMA. Trop 2.1, 2.06. IV heparin drip. Patient seen by Dr. lagos. Advised medical management with aspirin, Plavix and low-dose beta-erwin until patient is more stable. The patient needs assessment of coronary arteries before discharge. 3) acute kidney injury on CKD stage 3; mainly due to DKA with hypovolemia on top of diabetic nephropathy: Most likely secondary to ATN secondary to prolong azotemia from DKA. Her creatinine is improved to 1.79. As per the metaphysicist, she has CKD stage III with baseline creatinine around 1.5 in December 2017 and in August 2016.. Continue IV fluid resuscitation. Monitor intake and output. 4) Prophylaxis: SCD / heparin. Microbiology Past 72 Hours 01/11/18 20:30 Urine, Clean Catch Urine Culture - Preliminary Streptococcus agalactiae (B) Staphylococcus aureus 01/13/18 02:10 Mucosa - Nose Influenza Types A,B Direct FA (DANYELL) - Final 01/11/18 22:30 Blood Culture (Wb) - Anticubital Right Blood Culture - Preliminary 01/12/18 08:20 Stool Stool Occult Blood (DANYELL) - Final Laboratory Results 01/12/18 09:16: POC Glucose 222 H 01/12/18 11:26: POC Glucose 179 H 01/12/18 12:17: POC Glucose 160 H 01/12/18 14:40: Troponin I 1.81 H* 01/12/18 14:45: POC Glucose 128 H 01/12/18 16:36: POC Glucose 101 01/12/18 17:30: Urine Creatinine 88.80 01/12/18 17:30: U Random Total Protein 78.9 H 01/12/18 20:30: Sodium 145, Potassium 4.5, Chloride 114 H, Carbon Dioxide 24.0, Anion Gap 7, BUN 56 H, Creatinine 2.16 H, Estim Creat Clear Calc 20.03, Est GFR (MDRD) Af Amer 30 L, Est GFR (MDRD) Non-Af 25 L, BUN/Creatinine Ratio 25.9 H, Glucose 72 L, Calcium 7.4 L 01/12/18 21:01: POC Glucose 76 01/13/18 04:50: Hemoglobin A1c 10.5 H 01/13/18 04:50: UNIQUE Screen Pending 01/13/18 04:50: Sodium 143, Potassium 5.0, Chloride 112 H, Carbon Dioxide 22.0, Anion Gap 9, BUN 48 H, Creatinine 1.79 H, Estim Creat Clear Calc 27.80, Est GFR (MDRD) Af Amer 37 L, Est GFR (MDRD) Non-Af 31 L, BUN/Creatinine Ratio 26.8 H, Glucose 281 H, Calcium 7.5 L 01/13/18 06:28: POC Glucose 363 H Code Visit Inpatient E&M: 84657 Subs Hosp L3
[2018-01-13] MEDS: Metoprolol Tartrate 25 MG Tablet PO ×2 (09:24→20:58)
--- NOTE | 2018-01-13 09:27 | PN_ITS ---
Patient Problems: Active and Suspected Problems DKA (diabetic ketoacidoses) (Acute) NSTEMI (non-ST elevated myocardial infarction) (Acute) Subjective: Patient had low-grade temperature: T-max 101.7 at 12 midnight. Urine culture prelim shows Streptococcus agalactiae and staph aureus, probably MSSA as MRSA nasal screen is negative. Vitals/I&O's: Vital Signs Temp Pulse Resp BP Pulse Ox 99.7 F H 74 18 139/62 H 96 01/13/18 08:00 01/13/18 09:00 01/13/18 09:00 01/13/18 09:00 01/13/18 09:00 Oxygen Flow Rate (L/min) 2 Oxygen Delivery Method Room Air Weight: 113 lb 5.082 oz Body Mass Index (BMI) 15.9 Finger Stick Blood Glucose 249 Intake and Output for Last 24 Hours 01/11/18 01/12/18 01/13/18 23:59 23:59 23:59 Intake Total 4812.8 / 4812.8 434 / 434 Output Total 1600 / 1600 500 / 500 Balance 3212.8 / 3212.8 -66 / -66 General: Alert, Oriented x3, Cooperative HEENT: Atraumatic, PERRLA, EOMI, Normocephalic Neck: Supple, No JVD, Negative Carotid Bruits Lungs: Clear to auscultation, Normal air movement Cardiovascular: Regular rate, Regular Rhythm, Normal S1, Normal S2, No murmurs Abdomen: Bowel Sounds Present, Soft, Non Tender, Non-Distended Extremities: No edema, Capillary Refill Less than 3 Seconds Skin: No rashes, No breakdown Musculoskeletal: No Tenderness to Palpation of Joints or Extremities, Arthritic Changes Neurological: Cranial nerves II-XII grossly intact Psych/Mental Status: Normal Affect, Appropriate Microbiology Past 72 Hours 01/13/18 02:10 Mucosa - Nose Influenza Types A,B Direct FA (DANYELL) - Final 01/11/18 22:30 Blood Culture (Wb) - Anticubital Right Blood Culture - Preliminary 01/12/18 08:20 Stool Stool Occult Blood (DANYELL) - Final Laboratory Results 01/12/18 09:16: POC Glucose 222 H 01/12/18 11:26: POC Glucose 179 H 01/12/18 12:17: POC Glucose 160 H 01/12/18 14:40: Troponin I 1.81 H* 01/12/18 14:45: POC Glucose 128 H 01/12/18 16:36: POC Glucose 101 01/12/18 17:30: Urine Creatinine 88.80 01/12/18 17:30: U Random Total Protein 78.9 H 01/12/18 20:30: Sodium 145, Potassium 4.5, Chloride 114 H, Carbon Dioxide 24.0, Anion Gap 7, BUN 56 H, Creatinine 2.16 H, Estim Creat Clear Calc 20.03, Est GFR (MDRD) Af Amer 30 L, Est GFR (MDRD) Non-Af 25 L, BUN/Creatinine Ratio 25.9 H, Glucose 72 L, Calcium 7.4 L 01/12/18 21:01: POC Glucose 76 01/13/18 04:50: Hemoglobin A1c 10.5 H 01/13/18 04:50: UNIQUE Screen Pending 01/13/18 04:50: Sodium 143, Potassium 5.0, Chloride 112 H, Carbon Dioxide 22.0, Anion Gap 9, BUN 48 H, Creatinine 1.79 H, Estim Creat Clear Calc 27.80, Est GFR (MDRD) Af Amer 37 L, Est GFR (MDRD) Non-Af 31 L, BUN/Creatinine Ratio 26.8 H, Glucose 281 H, Calcium 7.5 L 01/13/18 06:28: POC Glucose 363 H Current Medications Acetaminophen (Tylenol) 650 mg PO Q4H PRN PRN PRN Reason: pain/fever Last Admin: 01/13/18 06:31 Dose: 650 mg Aspirin (Aspirin, Baby) 81 mg PO DAILY@0800 [facility] Last Admin: 01/13/18 08:52 Dose: 81 mg Atorvastatin Calcium (Lipitor) 20 mg PO QHS [facility] Last Admin: 01/12/18 21:02 Dose: 20 mg Clopidogrel Bisulfate (Plavix) 75 mg PO DAILY [facility] Last Admin: 01/13/18 08:53 Dose: 75 mg Dextrose (D50w Syringe) 0 gm IV X1 PRN; Protocol PRN Reason: Hypoglycemia Dextrose (D50w Syringe) 0 gm IV X1 PRN; Protocol PRN Reason: AGITATION Escitalopram Oxalate (Lexapro) 20 mg PO QHS [facility] Last Admin: 01/12/18 21:02 Dose: 20 mg Gabapentin (Neurontin) 300 mg PO QHS [facility] Last Admin: 01/12/18 21:02 Dose: 300 mg Glucagon () 1 mg IM .X1 PRN PRN Reason: Hypoglycemia Heparin Sodium (Porcine) () 0 units IV UD PRN PRN Reason: Protocol Sodium Chloride () 250 mls @ 15 mls/hr IV .[id number] PRN PRN Reason: SALINE FLUSH Last Admin: 01/12/18 00:30 Dose: 15 mls/hr Sodium Chloride () 1,000 mls @ 75 mls/hr IV .[id number] [facility] Last Admin: 01/13/18 05:37 Dose: 75 mls/hr Ceftriaxone Sodium (Rocephin) 1 gm in 50 mls @ 100 mls/hr IV Q24 [facility] Last Admin: 01/13/18 08:57 Dose: 100 mls/hr Insulin Aspart (Novolog Flexpen (Bkc)) 0 units SC ACHS LANCE PRN Reason: Protocol Last Admin: 01/13/18 06:31 Dose: 8 u Lisinopril (Zestril) 2.5 mg PO QHS [facility] Last Admin: 01/12/18 21:01 Dose: 2.5 mg Magnesium Hydroxide (Milk Of Magnesia) 30 ml PO DAILY PRN PRN PRN Reason: Constipation Metoprolol Tartrate (Lopressor (Beta Erwin)) 25 mg PO BID [facility] Ondansetron HCl (Zofran) 4 mg IV Q6H PRN PRN PRN Reason: NAUSEA Pantoprazole Sodium (Protonix) 40 mg PO DAILY [facility] Last Admin: 01/13/18 09:13 Dose: Not Given Phenol/Menthol (Chloraseptic (Bkc)) 3 spray MM Q2H PRN PRN PRN Reason: SORE THROAT Last Admin: 01/13/18 06:35 Dose: 3 sprays Sodium Chloride () 5 - 30 ml IV UD PRN PRN Reason: SALINE FLUSH Last Admin: 01/12/18 17:20 Dose: 20 ml Sodium Chloride ([place] Nasal [place]) 2 spray NASAL TID PRN PRN PRN Reason: NASAL DRYNESS Last Admin: 01/13/18 00:31 Dose: 2 spray Throat Lozenges (Cepacol Sore Throat Lozenge) 1 lozenge MUCOUS MEM Q2H PRN PRN PRN Reason: SORE THROAT Last Admin: 01/12/18 10:29 Dose: 1 lozenge Assessment/Plan Active and Suspected Problems DKA (diabetic ketoacidoses) (Acute) NSTEMI (non-ST elevated myocardial infarction) (Acute) This is a 57 year old female type 1 diabetes mellitus, CKD III, HTN, COPD and dyslipidemia admitted for DKA. 1) DKA history of type 1 diabetes mellitus.: The patient is being admitted in the ICU. Anion gap is closed. Bicarb 22. Blood sugar is in the range of 100- 150 mg percent. Insulin drip stopped and switched to Accu-Chek before meals and at bedtime and cover with NovoLog sliding scale. On Levemir and adjust with regard to hypoglycemia. Blood pressure is recovered. Urine output 1600 mL in 24 hours. Continue IV fluid. 2) NSTEMI: The patient has been smoking a pack per day since age of 13. She is occasional drinker. Possible secondary to type II PR vs clearance from UMA. Trop 2.1, 2.06. IV heparin drip. Patient seen by Dr. lagos. Advised medical management with aspirin, Plavix and low-dose beta-erwin until patient is more stable. The patient needs assessment of coronary arteries before discharge. 3) acute kidney injury on CKD stage 3; mainly due to DKA with hypovolemia on top of diabetic nephropathy: Most likely secondary to ATN secondary to prolong azotemia from DKA. Her creatinine is improved to 1.79. As per the immigration case worker , she has CKD stage III with baseline creatinine around 1.5 in December 2017 and in August 2016.. Continue IV fluid resuscitation. Monitor intake and output. 4) Prophylaxis: SCD / heparin. Microbiology Past 72 Hours 01/11/18 20:30 Urine, Clean Catch Urine Culture - Preliminary Streptococcus agalactiae (B) Staphylococcus aureus 01/13/18 02:10 Mucosa - Nose Influenza Types A,B Direct FA (DANYELL) - Final 01/11/18 22:30 Blood Culture (Wb) - Anticubital Right Blood Culture - Preliminary 01/12/18 08:20 Stool Stool Occult Blood (DANYELL) - Final Laboratory Results 01/12/18 09:16: POC Glucose 222 H 01/12/18 11:26: POC Glucose 179 H 01/12/18 12:17: POC Glucose 160 H 01/12/18 14:40: Troponin I 1.81 H* 01/12/18 14:45: POC Glucose 128 H 01/12/18 16:36: POC Glucose 101 01/12/18 17:30: Urine Creatinine 88.80 01/12/18 17:30: U Random Total Protein 78.9 H 01/12/18 20:30: Sodium 145, Potassium 4.5, Chloride 114 H, Carbon Dioxide 24.0, Anion Gap 7, BUN 56 H, Creatinine 2.16 H, Estim Creat Clear Calc 20.03, Est GFR (MDRD) Af Amer 30 L, Est GFR (MDRD) Non-Af 25 L, BUN/Creatinine Ratio 25.9 H, Glucose 72 L, Calcium 7.4 L 01/12/18 21:01: POC Glucose 76 01/13/18 04:50: Hemoglobin A1c 10.5 H 01/13/18 04:50: UNIQUE Screen Pending 01/13/18 04:50: Sodium 143, Potassium 5.0, Chloride 112 H, Carbon Dioxide 22.0, Anion Gap 9, BUN 48 H, Creatinine 1.79 H, Estim Creat Clear Calc 27.80, Est GFR (MDRD) Af Amer 37 L, Est GFR (MDRD) Non-Af 31 L, BUN/Creatinine Ratio 26.8 H, Glucose 281 H, Calcium 7.5 L 01/13/18 06:28: POC Glucose 363 H Code Visit Inpatient E&M: 36803 Subs Hosp L3
[2018-01-13 11:31] LABS: Bedside Glucose 397 mg/dL (70-110)
[2018-01-13 17:01] LABS: Bedside Glucose > 500 mg/dL (70-110)
[2018-01-13] MEDS: guaiFENesin/Codeine 5 ML UDC PO ×2 (17:36→20:59)
[2018-01-13] MEDS: Atorvastatin Calcium 20 MG Tablet PO (20:57)
[2018-01-13] MEDS: 0.9% NaCl Peripheral Flush Adult/Peds IV (20:57)
[2018-01-13] MEDS: Escitalopram Oxalate 20 MG Tablet PO (20:57)
[2018-01-13] MEDS: Lisinopril 2.5 MG Tablet PO (20:58)
[2018-01-13] MEDS: Gabapentin 300 MG Capsule PO (20:58)
[2018-01-13 21:22] LABS: Glucose 432 mg/dL (74-106)
[2018-01-13 21:36] LABS: Bedside Glucose 494 mg/dL (70-110)
--- NOTE | 2018-01-13 22:43 | NURSING ---
RN in to check BG when [employer] called RN and informed her that patient needed sheets changed due to sweating. Patient transferred from ICU to PCU today, diagnosis is DKA. BG checked and it was 494 on glucometer, lab called for a STAT lab backup. Lab backup resulted at 432; sliding scale covered the 432 BG and patient was then medicated per sliding scale on
[2018-01-14] VITALS (12 sets, daily range): BP systolic 110–148; BP diastolic 48–72; PULSE 60–71; RESP 18; TEMP 35.9–38.1; O2SAT 93–99
[2018-01-14 03:03] LABS: Absolute Lymphocyte Count 4.81 X10^3/ul (0.83-4.51); Basophil# 0.05 X10^3/uL; Basophil% 0.5 % (0-1); Eosinophil# 0.28 X10^3/uL; Eosinophils% 2.5 % (0-5); Hemoglobin 9.6 g/dl (12.0-15.0); Lymphocyte # 4.81 X10^3/ul (4.0); Lymphocyte % 43.3 % (19-41); Mean Corp Hgb Conc 33.1 g/gl (32-36); Mean Corpuscular Hgb 30.4 pg (27.0-32.0); Mean Corpuscular Volume 91.8 fL (81-99); Mean Platelet Vol. 9.7 fl (6.2-12.0); Monocyte# 0.93 X10^3/uL; Monocyte% 8.4 % (0-10); Neutrophil # 5.01 X10^3/uL (2.7-7.7); Neutrophil % 45.1 % (47-70); Platelet Count 167 K/mm3 (150-450); RBC Distribution Width CV 12.8 % (11.6-14.6); Red Blood Count 3.16 M/mm3 (4.2-5.4); White Blood Count 11.1 K/mm3 (4.4-11.0)
[2018-01-14 03:05] LABS: POSITIVE COUNT NO; POSITIVE DIFFERENTIAL NO; POSITIVE MORPHOLOGY NO
[2018-01-14 03:26] LABS: Bedside Glucose 31 mg/dL (70-110)
[2018-01-14 03:26] LABS: Bedside Glucose 62 mg/dL (70-110)
[2018-01-14 03:31] LABS: Anion Gap 9 (5-15); BUN 36 mg/dL (7-18); BUN/Creat Ratio 26.1 RATIO (10-20); Calcium,Total 8.1 mg/dL (8.5-10.1); Chloride 111 mmol/L (98-107); Cholesterol 134 mg/dL (200); Creatinine, Serum 1.38 mg/dL (0.55-1.02); EST Glomerular Filtration Rate 42 mL/min (>60); Est Glom Filt Rate - Afr Amer 51 mL/min (>60); Estimated Creatinine Clearance 36.06 ml/min; Glucose 49 mg/dL (74-106); High Density Lipoprotein 59 mg/dL; Sodium Level 144 mmol/L (136-145); Triglycerides 92 mg/dL; Very Low Density Lipoprotein 18 mg/dL (5-40)
[2018-01-14 03:41] LABS: Bedside Glucose 85 mg/dL (70-110)
[2018-01-14] MEDS: guaiFENesin/Codeine 5 ML UDC PO ×5 (05:27→21:48)
[2018-01-14] MEDS: 0.9% NaCl Peripheral Flush Adult/Peds IV (05:27)
[2018-01-14 07:01] LABS: Bedside Glucose 40 mg/dL (70-110)
[2018-01-14 07:42] LABS: Glucose 60 mg/dL (74-106)
--- NOTE | 2018-01-14 07:52 | PCM.PN.CARD ---
Subjectve: Patient seen and evaluated and appears to be doing much better. Objective: Vital Signs Temp Pulse Resp BP Pulse Ox 97.7 F L 62 18 110/48 L 99 01/14/18 03:00 01/14/18 03:00 01/14/18 03:00 01/14/18 03:00 01/14/18 03:00 Oxygen Flow Rate (L/min) 2 Oxygen Delivery Method Room Air Weight: 106 lb 14.787 oz Body Mass Index (BMI) 15.9 Finger Stick Blood Glucose 249 Intake and Output for Last 24 Hours 01/12/18 01/13/18 01/14/18 23:59 23:59 23:59 Intake Total 4812.8 / 4812.8 1245 / 1245 1242 / 1242 Output Total 1600 / 1600 1800 / 1800 1400 / 1400 Balance 3212.8 / 3212.8 -555 / -555 -158 / -158 General: Awake, Alert, Oriented x 3 HEENT: PERRL, EOMI, Sclera Non Icteric Neck: Supple, Good ROM, No Lymph Node Enlargement Lungs: Clear to auscultation Cardiovascular: Regular Rhythm, Normal S1, Normal S2, No Murmurs, No Rubs, No Gallops Vascular: No Carotid Bruits, Normal Femoral Pulses, Normal Radial Pulses, Normal Dorsalis Pedal Pulse, Normal Posterior Tibial Pulses Abdomen: Bowel Sounds Present, Soft, Non Tender, No HSM, No Organomegaly Extremities: No Cyanosis, No Clubbing, No edema Neurological: No Focal Motor or Sensory Deficit 01/13/18 21:05: Glucose 432 H 01/14/18 02:50: WBC 11.1 H, RBC 3.16 L, Hgb 9.6 L, Hct 29.0 L, MCV 91.8, MCH 30.4, MCHC 33.1, RDW 12.8, RDW Differential 43.0, Plt Count 167, MPV 9.7, Immature Gran % (Auto) 0.200, Neut % (Auto) 45.1 L, Lymph % (Auto) 43.3 H, [place] % (Auto) 8.4, Eos % (Auto) 2.5, Baso % (Auto) 0.5, Absolute Neuts (auto) 5.0, Total Counted Not Reportable 01/14/18 02:50: Sodium 144, Potassium 4.0, Chloride 111 H, Carbon Dioxide 24.0, Anion Gap 9, BUN 36 H, Creatinine 1.38 H, Est GFR (MDRD) Af Amer 51 L, Est GFR (MDRD) Non-Af 42 L, BUN/Creatinine Ratio 26.1 H, Glucose 49 L, Calcium 8.1 L, Triglycerides 92, Cholesterol 134, LDL Cholesterol 57, VLDL Cholesterol 18, HDL Cholesterol 59 01/14/18 07:25: Glucose 60 L Rhythm: EKG: Normal sinus rhythm ECHO: Preserved left ventricular systolic function estimated EF 65% Assessment/Plan 1. Non-ST elevation myocardial infarction. Patient presents with mild confusion and noted to be in diabetic ketoacidosis and has an abnormal cardiac enzyme pattern. Patient also has renal dysfunction. An echocardiogram demonstrated that her ejection fraction was noted to be normal. She will more than likely need an evaluation of her coronary anatomy before being discharged. We will continue with intravenous fluid to see whether this would improve her renal function. In the meantime would like continue her on aspirin clopidogrel as well as low-dose beta-darwin. Timing of left heart catheterization to be determined either later today or tomorrow a.m. 2. Hypertension Continue treatment with antihypertensive with the beta-darwin at this time. 3. Risk factor modification Her diabetic status should be appropriately controlled . Her lipid levels appear to be quite within the norm and will continue with the statin. Thank you for allowing me to participate in the care of your patient. Please don't hesitate to call if any issues arise
[2018-01-14 07:56] LABS: Bedside Glucose 88 mg/dL (70-110)
--- NOTE | 2018-01-14 08:20 | RAD_ITS ---
STUDY: X-RAY CHEST REASON FOR EXAM: Female, 57 years old. Cough. TECHNIQUE: PA and lateral views of the chest. COMPARISON: Comparison is made with prior study dated January 11, 2018. FINDINGS: EKG electrodes are seen. Hyperinflation. The lungs are clear. There is no demonstrated pleural abnormality. Normal size heart. Normal mediastinum and angelita. Normal visualized pulmonary arteries. Normal visualized aortic arch and descending thoracic aorta. Normal visualized thoracic spine. Normal visualized ribs, clavicles, and shoulders. There is no demonstrated abnormality of the visualized soft tissue structures of the upper abdomen. RAD/Chest PA and Lateral IMPRESSION: Hyperinflation. No acute abnormality is seen. Electronically Signed: Dre Tapia MD at 10:12 EDT Tel [phone], Service support ,
[2018-01-14] MEDS: Metoprolol Tartrate 25 MG Tablet PO ×2 (08:31→21:46)
[2018-01-14] MEDS: Clopidogrel Bisulfate 75 MG Tablet PO (08:31)
[2018-01-14] MEDS: Pantoprazole Sodium 40 MG Tablet PO (08:31)
[2018-01-14] MEDS: 0.9% Normal Saline 1,000 ML 75 ML IV ×2 (08:32→21:45)
[2018-01-14] MEDS: Aspirin 81 MG TAB.CHEW PO (08:32)
--- NOTE | 2018-01-14 08:47 | PN.RENAL_ITS ---
Patient Problems: Active and Suspected Problems DKA (diabetic ketoacidoses) (Acute) NSTEMI (non-ST elevated myocardial infarction) (Acute) Subjective: still with moist cough, hypoglycemic episode early this morning. Renal function improving. Denied CP or cough. - Physical Exam General: Alert, Oriented x3, Cooperative Oral: Moist Mucosa Neck: Supple Lungs: Clear to auscultation, Diminished Cardiovascular: Regular rate Abdomen: Bowel Sounds Present, Soft, Non Tender, Non-Distended Extremities: No edema Psych/Mental Status: Normal Affect, Alert and oriented to time, place, person, mood and affect Vital Signs Temp Pulse Resp BP Pulse Ox 97.5 F L 65 18 138/71 H 97 01/14/18 08:22 01/14/18 08:31 01/14/18 08:22 01/14/18 08:22 01/14/18 08:22 Oxygen Flow Rate (L/min) 2 Oxygen Delivery Method Room Air Weight: 48.5 kg Body Mass Index (BMI) 15.9 Finger Stick Blood Glucose 249 Intake and Output for Last 24 Hours 01/12/18 01/13/18 01/14/18 23:59 23:59 23:59 Intake Total 4812.8 / 4812.8 1245 / 1245 1242 / 1242 Output Total 1600 / 1600 1800 / 1800 1400 / 1400 Balance 3212.8 / 3212.8 -555 / -555 -158 / -158 Microbiology Past 72 Hours 01/11/18 22:30 Bacteria Detection (PCR) - Final Blood Culture (Wb) - Anticubital Right Coag Negative Staph Blood Culture - Preliminary Coag Negative Staph 01/11/18 22:25 Blood Culture - Preliminary Blood Culture (Wb) - Anticubital Left No growth in 48 hours. 01/13/18 13:15 Respiratory Panel (PCR) - Final Mucosa - Nasopharyngeal 01/13/18 02:10 Influenza Types A,B Direct FA (DANYELL) - Final Mucosa - Nose 01/12/18 08:20 Stool Occult Blood (DANYELL) - Final Stool Laboratory Tests Past 24 Hrs 01/13/18 01/14/18 01/14/18 21:05 02:50 02:50 WBC 11.1 H RBC 3.16 L Hgb 9.6 L Hct 29.0 L MCV 91.8 MCH 30.4 MCHC 33.1 RDW 12.8 RDW Differential 43.0 Plt Count 167 MPV 9.7 Immature Gran % (Auto) 0.200 Neut % (Auto) 45.1 L Lymph % (Auto) 43.3 H [place] % (Auto) 8.4 Eos % (Auto) 2.5 Baso % (Auto) 0.5 Absolute Neuts (auto) 5.0 Absolute Lymphs (auto) 4.81 H Total Counted Not Reportable Sodium 144 Potassium 4.0 Chloride 111 H Carbon Dioxide 24.0 Anion Gap 9 BUN 36 H Creatinine 1.38 H Estim Creat Clear Calc 36.06 Est GFR (MDRD) Af Amer 51 L Est GFR (MDRD) Non-Af 42 L BUN/Creatinine Ratio 26.1 H Glucose 432 H 49 L Calcium 8.1 L Triglycerides 92 Cholesterol 134 LDL Cholesterol 57 VLDL Cholesterol 18 HDL Cholesterol 59 01/14/18 07:25 WBC RBC Hgb Hct MCV MCH MCHC RDW RDW Differential Plt Count MPV Immature Gran % (Auto) Neut % (Auto) Lymph % (Auto) [place] % (Auto) Eos % (Auto) Baso % (Auto) Absolute Neuts (auto) Absolute Lymphs (auto) Total Counted Sodium Potassium Chloride Carbon Dioxide Anion Gap BUN Creatinine Estim Creat Clear Calc Est GFR (MDRD) Af Amer Est GFR (MDRD) Non-Af BUN/Creatinine Ratio Glucose 60 L Calcium Triglycerides Cholesterol LDL Cholesterol VLDL Cholesterol HDL Cholesterol POC Glucose 01/14/18 01/14/18 01/14/18 07:43 06:54 03:36 POC Glucose 88 40 L* 85 01/14/18 01/14/18 01/13/18 03:07 02:39 20:45 POC Glucose 62 L 31 L* 494 H* 01/13/18 01/13/18 16:51 11:23 POC Glucose > 500 H* 397 H Assessment/Plan Active and Suspected Problems DKA (diabetic ketoacidoses) (Acute) NSTEMI (non-ST elevated myocardial infarction) (Acute) 1. UMA on CKD Stage 3 due to dehydration from DKA. Baseline creatinine 1.4, 4.14 on admit improved to 1.38 today with hydration 2. Nausea, vomiting improved 3. DKA with severe metabolic acidosis resolved. Hypoglycemia early this am with diaphoresis. 4. Cough, resp panel unremarkable. Fever resolved. Check CXR today 5. NSTEMI cardiology following 6. anemia check iron studies 7. Hx positive UNIQUE. Recheck DW hospitalist and cardiology
[2018-01-14] MEDS: Acetaminophen 325 MG Tablet 650 MG PO (10:00)
[2018-01-14] MEDS: Ceftriaxone 1 GM/50 ML BAG IV (10:47)
[2018-01-14 11:00] LABS: Bedside Glucose 103 mg/dL (70-110)
[2018-01-14 17:45] LABS: Glucose 467 mg/dL (74-106)
[2018-01-14 17:51] LABS: Bedside Glucose > 500 mg/dL (70-110)
--- NOTE | 2018-01-14 18:23 | PCM.PN.HOSP ---
Patient Problems: Active and Suspected Problems DKA (diabetic ketoacidoses) (Acute) NSTEMI (non-ST elevated myocardial infarction) (Acute) Subjective: Patient blood sugar is labile and fluctuates from very low to very high. Creatinine is improving. Scheduled for cardiac cath tomorrow. Blood culture shows: Is negative staph. Urine culture positive for Streptococcus agalactiae and staph aureus, MSSA Objective: General: Alert, Oriented x3, Cooperative HEENT: Atraumatic, PERRLA, EOMI, Normocephalic Neck: Supple, No JVD, Negative Carotid Bruits Lungs: Clear to auscultation, Normal air movement Cardiovascular: Regular rate, Regular Rhythm, Normal S1, Normal S2, No murmurs Abdomen: Bowel Sounds Present, Soft, Non Tender, Non-Distended Extremities: No edema, Capillary Refill Less than 3 Seconds Skin: No rashes, No breakdown Musculoskeletal: No Tenderness to Palpation of Joints or Extremities, Arthritic Changes Neurological: Cranial nerves II-XII grossly intact Psych/Mental Status: Normal Affect, Appropriate Vitals/I&O's: Vital Signs Temp Pulse Resp BP Pulse Ox 96.6 F L 66 18 148/64 H 97 01/14/18 17:10 01/14/18 17:10 01/14/18 17:10 01/14/18 17:10 01/14/18 17:10 Oxygen Flow Rate (L/min) 2 Oxygen Delivery Method Room Air Weight: 106 lb 14.787 oz Body Mass Index (BMI) 15.9 Finger Stick Blood Glucose 249 Intake and Output for Last 24 Hours 01/12/18 01/13/18 01/14/18 23:59 23:59 23:59 Intake Total 4812.8 / 4812.8 1245 / 1245 2499 / 2499 Output Total 1600 / 1600 1800 / 1800 2300 / 2300 Balance 3212.8 / 3212.8 -555 / -555 199 / 199 General: Alert, Oriented x3, Cooperative HEENT: Atraumatic, PERRLA, EOMI, Normocephalic Neck: Supple, No JVD, Negative Carotid Bruits Lungs: Clear to auscultation, Normal air movement Cardiovascular: Regular rate, No murmurs Abdomen: Bowel Sounds Present, Soft, Non Tender Extremities: No edema, Capillary Refill Less than 3 Seconds Skin: No rashes, No breakdown Musculoskeletal: No Tenderness to Palpation of Joints or Extremities Neurological: Cranial nerves II-XII grossly intact Psych/Mental Status: Normal Affect, Appropriate Microbiology Past 72 Hours 01/11/18 22:30 Blood Culture (Wb) - Anticubital Right Bacteria Detection (PCR) - Final Coag Negative Staph 01/11/18 22:30 Blood Culture (Wb) - Anticubital Right Blood Culture - Preliminary Coag Negative Staph 01/11/18 22:25 Blood Culture (Wb) - Anticubital Left Blood Culture - Preliminary No growth in 48 hours. 01/13/18 13:15 Mucosa - Nasopharyngeal Respiratory Panel (PCR) - Final 01/13/18 02:10 Mucosa - Nose Influenza Types A,B Direct FA (DANYELL) - Final 01/12/18 08:20 Stool Stool Occult Blood (DANYELL) - Final Laboratory Results 01/13/18 20:45: POC Glucose 494 H* 01/13/18 21:05: Glucose 432 H 01/14/18 02:39: POC Glucose 31 L* 01/14/18 02:50: WBC 11.1 H, RBC 3.16 L, Hgb 9.6 L, Hct 29.0 L, MCV 91.8, MCH 30.4, MCHC 33.1, RDW 12.8, RDW Differential 43.0, Plt Count 167, MPV 9.7, Immature Gran % (Auto) 0.200, Neut % (Auto) 45.1 L, Lymph % (Auto) 43.3 H, [place] % (Auto) 8.4, Eos % (Auto) 2.5, Baso % (Auto) 0.5, Absolute Neuts (auto) 5.0, Absolute Lymphs (auto) 4.81 H, Total Counted Not Reportable 01/14/18 02:50: Sodium 144, Potassium 4.0, Chloride 111 H, Carbon Dioxide 24.0, Anion Gap 9, BUN 36 H, Creatinine 1.38 H, Estim Creat Clear Calc 36.06, Est GFR (MDRD) Af Amer 51 L, Est GFR (MDRD) Non-Af 42 L, BUN/Creatinine Ratio 26.1 H, Glucose 49 L, Calcium 8.1 L, Triglycerides 92, Cholesterol 134, LDL Cholesterol 57, VLDL Cholesterol 18, HDL Cholesterol 59 01/14/18 03:07: POC Glucose 62 L 01/14/18 03:36: POC Glucose 85 01/14/18 06:54: POC Glucose 40 L* 01/14/18 07:25: Glucose 60 L 01/14/18 07:43: POC Glucose 88 01/14/18 10:46: POC Glucose 103 01/14/18 17:07: POC Glucose > 500 H* 01/14/18 17:18: Glucose 467 H* Current Medications Acetaminophen (Tylenol) 650 mg PO Q4H PRN PRN PRN Reason: pain/fever Last Admin: 01/14/18 10:00 Dose: 650 mg Aspirin (Aspirin, Baby) 81 mg PO DAILY@0800 [facility] Last Admin: 01/14/18 08:32 Dose: 81 mg Atorvastatin Calcium (Lipitor) 20 mg PO QHS [facility] Last Admin: 01/13/18 20:57 Dose: 20 mg Clopidogrel Bisulfate (Plavix) 75 mg PO DAILY [facility] Last Admin: 01/14/18 08:31 Dose: 75 mg Dextrose (D50w Syringe) 0 gm IV X1 PRN; Protocol PRN Reason: Hypoglycemia Dextrose (D50w Syringe) 0 gm IV X1 PRN; Protocol PRN Reason: AGITATION Escitalopram Oxalate (Lexapro) 20 mg PO QHS [facility] Last Admin: 01/13/18 20:57 Dose: 20 mg Gabapentin (Neurontin) 300 mg PO QHS [facility] Last Admin: 01/13/18 20:58 Dose: 300 mg Glucagon () 1 mg IM .X1 PRN PRN Reason: Hypoglycemia Guaifenesin/Codeine Phosphate (Robitussin Ac) 5 ml PO Q4HWA [facility] Last Admin: 01/14/18 17:18 Dose: 5 ml Heparin Sodium (Porcine) () 0 units IV UD PRN PRN Reason: Protocol Sodium Chloride () 250 mls @ 15 mls/hr IV .[id number] PRN PRN Reason: SALINE FLUSH Last Admin: 01/12/18 00:30 Dose: 15 mls/hr Sodium Chloride () 1,000 mls @ 75 mls/hr IV .[id number] [facility] Last Admin: 01/14/18 08:32 Dose: 75 mls/hr Ceftriaxone Sodium (Rocephin) 1 gm in 50 mls @ 100 mls/hr IV Q24 [facility] Last Admin: 01/14/18 10:47 Dose: 100 mls/hr Sodium Chloride () 1,000 mls @ 15 mls/hr IV .Q48H [facility] PRN Reason: KVO Last Admin: 01/14/18 10:32 Dose: Not Given Insulin Aspart (Novolog Flexpen ([facility])) 0 units SC ACHS [facility] PRN Reason: Protocol Last Admin: 01/14/18 18:15 Dose: Not Given Insulin Detemir (Levemir ([facility])) 10 units SC QHS [facility] Lisinopril (Zestril) 2.5 mg PO QHS [facility] Last Admin: 01/13/18 20:58 Dose: 2.5 mg Magnesium Hydroxide (Milk Of Magnesia) 30 ml PO DAILY PRN PRN PRN Reason: Constipation Metoprolol Tartrate (Lopressor (Beta Erwin)) 25 mg PO BID [facility] Last Admin: 01/14/18 08:31 Dose: 25 mg Ondansetron HCl (Zofran) 4 mg IV Q6H PRN PRN PRN Reason: NAUSEA Pantoprazole Sodium (Protonix) 40 mg PO DAILY [facility] Last Admin: 01/14/18 08:31 Dose: 40 mg Phenol/Menthol (Chloraseptic ([facility])) 3 spray MM Q2H PRN PRN PRN Reason: SORE THROAT Last Admin: 01/13/18 06:35 Dose: 3 sprays Sodium Chloride () 5 - 30 ml IV UD PRN PRN Reason: SALINE FLUSH Last Admin: 01/14/18 05:27 Dose: 20 ml Sodium Chloride ([place] Nasal [place]) 2 spray NASAL TID PRN PRN PRN Reason: NASAL DRYNESS Last Admin: 01/13/18 00:31 Dose: 2 spray Throat Lozenges (Cepacol Sore Throat Lozenge) 1 lozenge MUCOUS MEM Q4H PRN PRN PRN Reason: SORE THROAT Assessment/Plan Active and Suspected Problems DKA (diabetic ketoacidoses) (Acute) NSTEMI (non-ST elevated myocardial infarction) (Acute) This is a 57 year old female type 1 diabetes mellitus, CKD III, HTN, COPD and dyslipidemia admitted for DKA. 1) DKA history of type 1 diabetes mellitus.: The patient is being admitted in the ICU. Anion gap is closed. Bicarb 22. Blood sugar is in the range of 100-150 mg percent. Insulin drip stopped and switched to Accu-Chek before meals and at bedtime and cover with NovoLog sliding scale. On Levemir and adjust with regard to hypoglycemia. Blood pressure is recovered. Urine output 2200 mL in 24 hours. Continue IV fluid. 2) NSTEMI: The patient has been smoking a pack per day since age of 13. She is occasional drinker. Possible secondary to type II NM vs clearance from UMA. Trop 2.1, 2.06. IV heparin drip. Patient seen by Dr. lagos. Advised medical management with aspirin, Plavix and low-dose beta-erwin until patient is more stable. Cardiac cath for tomorrow a.m. Diabetes mellitus type 1 with labile glucose control: Patient had hypoglycemia with blood sugar in 500 yesterday and she dropped blood sugar after NovoLog 15 units long-acting insulin. In the morning her blood sugar was in 40s-50s and now again in the evening 467 mg percent. Accu-Chek before meals and at bedtime and cover with NovoLog sliding scale. Levemir 10 units subcu at bedtime and hold if blood sugar is less than 130 mg percent 3) acute kidney injury on CKD stage 3; mainly due to DKA with hypovolemia on top of diabetic nephropathy: Most likely secondary to ATN secondary to prolong azotemia from DKA. Her creatinine is improved to 1.3 8. As per the regional account manager, she has CKD stage III with baseline creatinine around 1.5 in December 2017 and in August 2016.. Continue IV fluid resuscitation. Monitor intake and output. 4) Prophylaxis: SCD / heparin. Microbiology Past 72 Hours 01/11/18 20:30 Urine, Clean Catch Urine Culture - Preliminary Streptococcus agalactiae (B) Staphylococcus aureus 01/13/18 02:10 Mucosa - Nose Influenza Types A,B Direct FA (DANYELL) - Final 01/11/18 22:30 Blood Culture (Wb) - Anticubital Right Blood Culture - Preliminary 01/12/18 08:20 Stool Stool Occult Blood (DANYELL) - Final Laboratory Results 01/12/18 09:16: POC Glucose 222 H 01/12/18 11:26: POC Glucose 179 H 01/12/18 12:17: POC Glucose 160 H 01/12/18 14:40: Troponin I 1.81 H* 01/12/18 14:45: POC Glucose 128 H 01/12/18 16:36: POC Glucose 101 01/12/18 17:30: Urine Creatinine 88.80 01/12/18 17:30: U Random Total Protein 78.9 H 01/12/18 20:30: Sodium 145, Potassium 4.5, Chloride 114 H, Carbon Dioxide 24.0, Anion Gap 7, BUN 56 H, Creatinine 2.16 H, Estim Creat Clear Calc 20.03, Est GFR (MDRD) Af Amer 30 L, Est GFR (MDRD) Non-Af 25 L, BUN/Creatinine Ratio 25.9 H, Glucose 72 L, Calcium 7.4 L 01/12/18 21:01: POC Glucose 76 01/13/18 04:50: Hemoglobin A1c 10.5 H 01/13/18 04:50: UNIQUE Screen Pending 01/13/18 04:50: Sodium 143, Potassium 5.0, Chloride 112 H, Carbon Dioxide 22.0, Anion Gap 9, BUN 48 H, Creatinine 1.79 H, Estim Creat Clear Calc 27.80, Est GFR (MDRD) Af Amer 37 L, Est GFR (MDRD) Non-Af 31 L, BUN/Creatinine Ratio 26.8 H, Glucose 281 H, Calcium 7.5 L 01/13/18 06:28: POC Glucose 363 H Code Visit Inpatient E&M: 29275 Subs Hosp L3
--- NOTE | 2018-01-14 18:28 | PN_ITS ---
Patient Problems: Active and Suspected Problems DKA (diabetic ketoacidoses) (Acute) NSTEMI (non-ST elevated myocardial infarction) (Acute) Subjective: Patient blood sugar is labile and fluctuates from very low to very high. Creatinine is improving. Scheduled for cardiac cath tomorrow. Blood culture shows: Is negative staph. Urine culture positive for Streptococcus agalactiae and staph aureus, MSSA Objective: General: Alert, Oriented x3, Cooperative HEENT: Atraumatic, PERRLA, EOMI, Normocephalic Neck: Supple, No JVD, Negative Carotid Bruits Lungs: Clear to auscultation, Normal air movement Cardiovascular: Regular rate, Regular Rhythm, Normal S1, Normal S2, No murmurs Abdomen: Bowel Sounds Present, Soft, Non Tender, Non-Distended Extremities: No edema, Capillary Refill Less than 3 Seconds Skin: No rashes, No breakdown Musculoskeletal: No Tenderness to Palpation of Joints or Extremities, Arthritic Changes Neurological: Cranial nerves II-XII grossly intact Psych/Mental Status: Normal Affect, Appropriate Vitals/I&O's: Vital Signs Temp Pulse Resp BP Pulse Ox 96.6 F L 66 18 148/64 H 97 01/14/18 17:10 01/14/18 17:10 01/14/18 17:10 01/14/18 17:10 01/14/18 17:10 Oxygen Flow Rate (L/min) 2 Oxygen Delivery Method Room Air Weight: 106 lb 14.787 oz Body Mass Index (BMI) 15.9 Finger Stick Blood Glucose 249 Intake and Output for Last 24 Hours 01/12/18 01/13/18 01/14/18 23:59 23:59 23:59 Intake Total 4812.8 / 4812.8 1245 / 1245 2499 / 2499 Output Total 1600 / 1600 1800 / 1800 2300 / 2300 Balance 3212.8 / 3212.8 -555 / -555 199 / 199 General: Alert, Oriented x3, Cooperative HEENT: Atraumatic, PERRLA, EOMI, Normocephalic Neck: Supple, No JVD, Negative Carotid Bruits Lungs: Clear to auscultation, Normal air movement Cardiovascular: Regular rate, No murmurs Abdomen: Bowel Sounds Present, Soft, Non Tender Extremities: No edema, Capillary Refill Less than 3 Seconds Skin: No rashes, No breakdown Musculoskeletal: No Tenderness to Palpation of Joints or Extremities Neurological: Cranial nerves II-XII grossly intact Psych/Mental Status: Normal Affect, Appropriate Microbiology Past 72 Hours 01/11/18 22:30 Blood Culture (Wb) - Anticubital Right Bacteria Detection ( PCR) - Final Coag Negative Staph 01/11/18 22:30 Blood Culture (Wb) - Anticubital Right Blood Culture - Preliminary Coag Negative Staph 01/11/18 22:25 Blood Culture (Wb) - Anticubital Left Blood Culture - Preliminary No growth in 48 hours. 01/13/18 13:15 Mucosa - Nasopharyngeal Respiratory Panel (PCR) - Final 01/13/18 02:10 Mucosa - Nose Influenza Types A,B Direct FA (DANYELL) - Final 01/12/18 08:20 Stool Stool Occult Blood (DANYELL) - Final Laboratory Results 01/13/18 20:45: POC Glucose 494 H* 01/13/18 21:05: Glucose 432 H 01/14/18 02:39: POC Glucose 31 L* 01/14/18 02:50: WBC 11.1 H, RBC 3.16 L, Hgb 9.6 L, Hct 29.0 L, MCV 91.8, MCH 30.4, MCHC 33.1, RDW 12.8, RDW Differential 43.0, Plt Count 167, MPV 9.7, Immature Gran % (Auto) 0.200, Neut % (Auto) 45.1 L, Lymph % (Auto) 43.3 H, [place] % (Auto) 8.4, Eos % (Auto) 2.5, Baso % (Auto) 0.5, Absolute Neuts (auto) 5.0, Absolute Lymphs (auto) 4.81 H, Total Counted Not Reportable 01/14/18 02:50: Sodium 144, Potassium 4.0, Chloride 111 H, Carbon Dioxide 24.0, Anion Gap 9, BUN 36 H, Creatinine 1.38 H, Estim Creat Clear Calc 36.06, Est GFR (MDRD) Af Amer 51 L, Est GFR (MDRD) Non-Af 42 L, BUN/Creatinine Ratio 26.1 H, Glucose 49 L, Calcium 8.1 L, Triglycerides 92, Cholesterol 134, LDL Cholesterol 57, VLDL Cholesterol 18, HDL Cholesterol 59 01/14/18 03:07: POC Glucose 62 L 01/14/18 03:36: POC Glucose 85 01/14/18 06:54: POC Glucose 40 L* 01/14/18 07:25: Glucose 60 L 01/14/18 07:43: POC Glucose 88 01/14/18 10:46: POC Glucose 103 01/14/18 17:07: POC Glucose > 500 H* 01/14/18 17:18: Glucose 467 H* Current Medications Acetaminophen (Tylenol) 650 mg PO Q4H PRN PRN PRN Reason: pain/fever Last Admin: 01/14/18 10:00 Dose: 650 mg Aspirin (Aspirin, Baby) 81 mg PO DAILY@0800 [facility] Last Admin: 01/14/18 08:32 Dose: 81 mg Atorvastatin Calcium (Lipitor) 20 mg PO QHS [facility] Last Admin: 01/13/18 20:57 Dose: 20 mg Clopidogrel Bisulfate (Plavix) 75 mg PO DAILY [facility] Last Admin: 01/14/18 08:31 Dose: 75 mg Dextrose (D50w Syringe) 0 gm IV X1 PRN; Protocol PRN Reason: Hypoglycemia Dextrose (D50w Syringe) 0 gm IV X1 PRN; Protocol PRN Reason: AGITATION Escitalopram Oxalate (Lexapro) 20 mg PO QHS [facility] Last Admin: 01/13/18 20:57 Dose: 20 mg Gabapentin (Neurontin) 300 mg PO QHS [facility] Last Admin: 01/13/18 20:58 Dose: 300 mg Glucagon () 1 mg IM .X1 PRN PRN Reason: Hypoglycemia Guaifenesin/Codeine Phosphate (Robitussin Ac) 5 ml PO Q4HWA [facility] Last Admin: 01/14/18 17:18 Dose: 5 ml Heparin Sodium (Porcine) () 0 units IV UD PRN PRN Reason: Protocol Sodium Chloride () 250 mls @ 15 mls/hr IV .[id number] PRN PRN Reason: SALINE FLUSH Last Admin: 01/12/18 00:30 Dose: 15 mls/hr Sodium Chloride () 1,000 mls @ 75 mls/hr IV .[id number] [facility] Last Admin: 01/14/18 08:32 Dose: 75 mls/hr Ceftriaxone Sodium (Rocephin) 1 gm in 50 mls @ 100 mls/hr IV Q24 [facility] Last Admin: 01/14/18 10:47 Dose: 100 mls/hr Sodium Chloride () 1,000 mls @ 15 mls/hr IV .Q48H [facility] PRN Reason: KVO Last Admin: 01/14/18 10:32 Dose: Not Given Insulin Aspart (Novolog Flexpen ([facility])) 0 units SC ACHS [facility] PRN Reason: Protocol Last Admin: 01/14/18 18:15 Dose: Not Given Insulin Detemir (Levemir ([facility])) 10 units SC QHS [facility] Lisinopril (Zestril) 2.5 mg PO QHS [facility] Last Admin: 01/13/18 20:58 Dose: 2.5 mg Magnesium Hydroxide (Milk Of Magnesia) 30 ml PO DAILY PRN PRN PRN Reason: Constipation Metoprolol Tartrate (Lopressor (Beta Erwin)) 25 mg PO BID [facility] Last Admin: 01/14/18 08:31 Dose: 25 mg Ondansetron HCl (Zofran) 4 mg IV Q6H PRN PRN PRN Reason: NAUSEA Pantoprazole Sodium (Protonix) 40 mg PO DAILY [facility] Last Admin: 01/14/18 08:31 Dose: 40 mg Phenol/Menthol (Chloraseptic ([facility])) 3 spray MM Q2H PRN PRN PRN Reason: SORE THROAT Last Admin: 01/13/18 06:35 Dose: 3 sprays Sodium Chloride () 5 - 30 ml IV UD PRN PRN Reason: SALINE FLUSH Last Admin: 01/14/18 05:27 Dose: 20 ml Sodium Chloride ([place] Nasal [place]) 2 spray NASAL TID PRN PRN PRN Reason: NASAL DRYNESS Last Admin: 01/13/18 00:31 Dose: 2 spray Throat Lozenges (Cepacol Sore Throat Lozenge) 1 lozenge MUCOUS MEM Q4H PRN PRN PRN Reason: SORE THROAT Assessment/Plan Active and Suspected Problems DKA (diabetic ketoacidoses) (Acute) NSTEMI (non-ST elevated myocardial infarction) (Acute) This is a 57 year old female type 1 diabetes mellitus, CKD III, HTN, COPD and dyslipidemia admitted for DKA. 1) DKA history of type 1 diabetes mellitus.: The patient is being admitted in the ICU. Anion gap is closed. Bicarb 22. Blood sugar is in the range of 100- 150 mg percent. Insulin drip stopped and switched to Accu-Chek before meals and at bedtime and cover with NovoLog sliding scale. On Levemir and adjust with regard to hypoglycemia. Blood pressure is recovered. Urine output 2200 mL in 24 hours. Continue IV fluid. 2) NSTEMI: The patient has been smoking a pack per day since age of 13. She is occasional drinker. Possible secondary to type II CO vs clearance from [facility]. Trop 2.1, 2.06. IV heparin drip. Patient seen by Dr. lagos. Advised medical management with aspirin, Plavix and low-dose beta-erwin until patient is more stable. Cardiac cath for tomorrow a.m. Diabetes mellitus type 1 with labile glucose control: Patient had hypoglycemia with blood sugar in 500 yesterday and she dropped blood sugar after NovoLog 15 units long-acting insulin. In the morning her blood sugar was in 40s-50s and now again in the evening 467 mg percent. Accu-Chek before meals and at bedtime and cover with NovoLog sliding scale. Levemir 10 units subcu at bedtime and hold if blood sugar is less than 130 mg percent 3) acute kidney injury on CKD stage 3; mainly due to DKA with hypovolemia on top of diabetic nephropathy: Most likely secondary to ATN secondary to prolong azotemia from DKA. Her creatinine is improved to 1.3 8. As per the imagery analyst, she has CKD stage III with baseline creatinine around 1.5 in December 2017 and in August 2016.. Continue IV fluid resuscitation. Monitor intake and output. 4) Prophylaxis: SCD / heparin. Microbiology Past 72 Hours 01/11/18 20:30 Urine, Clean Catch Urine Culture - Preliminary Streptococcus agalactiae (B) Staphylococcus aureus 01/13/18 02:10 Mucosa - Nose Influenza Types A,B Direct FA (DANYELL) - Final 01/11/18 22:30 Blood Culture (Wb) - Anticubital Right Blood Culture - Preliminary 01/12/18 08:20 Stool Stool Occult Blood (DANYELL) - Final Laboratory Results 01/12/18 09:16: POC Glucose 222 H 01/12/18 11:26: POC Glucose 179 H 01/12/18 12:17: POC Glucose 160 H 01/12/18 14:40: Troponin I 1.81 H* 01/12/18 14:45: POC Glucose 128 H 01/12/18 16:36: POC Glucose 101 01/12/18 17:30: Urine Creatinine 88.80 01/12/18 17:30: U Random Total Protein 78.9 H 01/12/18 20:30: Sodium 145, Potassium 4.5, Chloride 114 H, Carbon Dioxide 24.0, Anion Gap 7, BUN 56 H, Creatinine 2.16 H, Estim Creat Clear Calc 20.03, Est GFR (MDRD) Af Amer 30 L, Est GFR (MDRD) Non-Af 25 L, BUN/Creatinine Ratio 25.9 H, Glucose 72 L, Calcium 7.4 L 01/12/18 21:01: POC Glucose 76 01/13/18 04:50: Hemoglobin A1c 10.5 H 01/13/18 04:50: UNIQUE Screen Pending 01/13/18 04:50: Sodium 143, Potassium 5.0, Chloride 112 H, Carbon Dioxide 22.0, Anion Gap 9, BUN 48 H, Creatinine 1.79 H, Estim Creat Clear Calc 27.80, Est GFR (MDRD) Af Amer 37 L, Est GFR (MDRD) Non-Af 31 L, BUN/Creatinine Ratio 26.8 H, Glucose 281 H, Calcium 7.5 L 01/13/18 06:28: POC Glucose 363 H Code Visit Inpatient E&M: 77787 Subs Hosp L3
[2018-01-14] MEDS: Escitalopram Oxalate 20 MG Tablet PO (21:45)
[2018-01-14] MEDS: Atorvastatin Calcium 20 MG Tablet PO (21:46)
[2018-01-14] MEDS: Gabapentin 300 MG Capsule PO (21:47)
[2018-01-14] MEDS: Lisinopril 2.5 MG Tablet PO (21:48)
[2018-01-14 23:16] LABS: Bedside Glucose 344 mg/dL (70-110)
[2018-01-15] VITALS (44 sets, daily range): BP systolic 110–182; BP diastolic 41–83; PULSE 54–98; RESP 15–25; TEMP 36.6–37.3; O2SAT 89–100; BMI 18.3
[2018-01-15 05:21] LABS: Bedside Glucose 34 mg/dL (70-110)
[2018-01-15 05:24] LABS: Absolute Lymphocyte Count 4.08 X10^3/ul (0.83-4.51); Absolute Neutrophil Count 3.4 X10^3/uL (2.0-7.7); Basophil# 0.04 X10^3/uL; Basophil% 0.5 % (0-1); Eosinophil# 0.55 X10^3/uL; Eosinophils% 6.3 % (0-5); Hematocrit 30.3 % (37-47); Hemoglobin 9.9 g/dl (12.0-15.0); Lymphocyte # 4.08 X10^3/ul (4.0); Lymphocyte % 46.8 % (19-41); Mean Corp Hgb Conc 32.7 g/gl (32-36); Mean Corpuscular Hgb 30.4 pg (27.0-32.0); Mean Corpuscular Volume 92.9 fL (81-99); Mean Platelet Vol. 10.1 fl (6.2-12.0); Monocyte# 0.59 X10^3/uL; Monocyte% 6.8 % (0-10); Neutrophil # 3.43 X10^3/uL (2.7-7.7); Neutrophil % 39.4 % (47-70); Platelet Count 173 K/mm3 (150-450); RBC Distribution Width CV 12.2 % (11.6-14.6); RBC Distribution Width SD 40.3 fl (35.1-43.9); Red Blood Count 3.26 M/mm3 (4.2-5.4); White Blood Count 8.7 K/mm3 (4.4-11.0)
[2018-01-15 05:34] LABS: POSITIVE COUNT NO; POSITIVE DIFFERENTIAL NO; POSITIVE MORPHOLOGY NO
[2018-01-15 05:39] LABS: International Normalized Ratio 0.9; Prothrombin Time (Protime)PT. 12.6 SECONDS (11.7-14.9)
[2018-01-15 05:40] LABS: Partial Thromboplast Time 27.4 Seconds (24.1-36.2)
[2018-01-15 05:52] LABS: Anion Gap 7 (5-15); BUN 25 mg/dL (7-18); BUN/Creat Ratio 22.5 RATIO (10-20); Calcium,Total 8.3 mg/dL (8.5-10.1); Chloride 108 mmol/L (98-107); Creatinine, Serum 1.11 mg/dL (0.55-1.02); EST Glomerular Filtration Rate 54 mL/min (>60); Est Glom Filt Rate - Afr Amer 65 mL/min (>60); Glucose 35 mg/dL (74-106); Potassium 4.2 mmol/L (3.5-5.1); Sodium Level 141 mmol/L (136-145)
--- NOTE | 2018-01-15 05:55 | EKG12_ITS ---
Test Reason : AM Blood Pressure : / mmHG Vent. Rate : 060 BPM Atrial Rate : 060 BPM P-R Int : 140 ms QRS Dur : 074 ms QT Int : 428 ms P-R-T Axes : 071 -24 075 degrees QTc Int : 428 ms Normal sinus rhythm Normal ECG When compared with ECG of 12-JAN-2018 05:54, No significant change was found Confirmed by KIRBY MASON [id number]), avid editor HARPAL ELLIS ([id number] on 01/19/2018 2:45:38 PM Referred By: BRAD Confirmed By:KIRBY MASON
[2018-01-15] MEDS: Metoprolol Tartrate 25 MG Tablet PO ×2 (05:57→21:24)
[2018-01-15] MEDS: Clopidogrel Bisulfate 75 MG Tablet PO (05:58)
[2018-01-15] MEDS: Aspirin 81 MG TAB.CHEW PO (05:58)
[2018-01-15] MEDS: guaiFENesin/Codeine 5 ML UDC PO ×4 (06:00→22:23)
[2018-01-15 06:16] LABS: Bedside Glucose 79 mg/dL (70-110)
--- NOTE | 2018-01-15 08:06 | NURSING ---
Called report to cadence Pisano RN at this time.
--- NOTE | 2018-01-15 08:40 | PN.RENAL_ITS ---
Patient Problems: Active and Suspected Problems DKA (diabetic ketoacidoses) (Acute) NSTEMI (non-ST elevated myocardial infarction) (Acute) Subjective: Renal function improved creatinine 1.1. Had another episode of hypoglycemia this morning. Going down for heart cath's morning. - Physical Exam General: Alert, Oriented x3, Cooperative, No apparent distress Lungs: Clear to auscultation Cardiovascular: Regular rate Abdomen: Bowel Sounds Present, Soft, Non Tender, Non-Distended Extremities: No edema Vital Signs Temp Pulse Resp BP Pulse Ox 98.3 F 58 L 18 120/60 95 01/15/18 05:54 01/15/18 07:12 01/15/18 05:54 01/15/18 05:54 01/15/18 05:54 Oxygen Flow Rate (L/min) 2 Oxygen Delivery Method Room Air Weight: 51.8 kg Body Mass Index (BMI) 15.9 Finger Stick Blood Glucose 249 Intake and Output for Last 24 Hours 01/13/18 01/14/18 01/15/18 23:59 23:59 23:59 Intake Total 1245 / 1245 2993 / 2993 459 / 459 Output Total 1800 / 1800 3050 / 3050 Balance -555 / -555 -57 / -57 459 / 459 Microbiology Past 72 Hours 01/11/18 22:30 Bacteria Detection (PCR) - Final Blood Culture (Wb) - Anticubital Right Coag Negative Staph Blood Culture - Preliminary Coag Negative Staph 01/11/18 22:25 Blood Culture - Preliminary Blood Culture (Wb) - Anticubital Left No growth in 48 hours. 01/13/18 13:15 Respiratory Panel (PCR) - Final Mucosa - Nasopharyngeal 01/13/18 02:10 Influenza Types A,B Direct FA (DANYELL) - Final Mucosa - Nose 01/12/18 08:20 Stool Occult Blood (DANYELL) - Final Stool Laboratory Tests Past 24 Hrs 01/14/18 01/15/18 01/15/18 17:18 05:00 05:00 WBC 8.7 RBC 3.26 L Hgb 9.9 L Hct 30.3 L MCV 92.9 MCH 30.4 MCHC 32.7 RDW 12.2 RDW Differential 40.3 Plt Count 173 MPV 10.1 Immature Gran % (Auto) 0.200 Neut % (Auto) 39.4 L Lymph % (Auto) 46.8 H [place] % (Auto) 6.8 Eos % (Auto) 6.3 H Baso % (Auto) 0.5 Absolute Neuts (auto) 3.4 Absolute Lymphs (auto) 4.08 Total Counted Not Reportable PT INR APTT Sodium 141 Potassium 4.2 Chloride 108 H Carbon Dioxide 26.0 Anion Gap 7 BUN 25 H Creatinine 1.11 H Estim Creat Clear Calc 42.30 Est GFR (MDRD) Af Amer 65 Est GFR (MDRD) Non-Af 54 L BUN/Creatinine Ratio 22.5 H Glucose 467 H* 35 L* Calcium 8.3 L 01/15/18 05:00 WBC RBC Hgb Hct MCV MCH MCHC RDW RDW Differential Plt Count MPV Immature Gran % (Auto) Neut % (Auto) Lymph % (Auto) [place] % (Auto) Eos % (Auto) Baso % (Auto) Absolute Neuts (auto) Absolute Lymphs (auto) Total Counted PT 12.6 INR 0.9 APTT 27.4 Sodium Potassium Chloride Carbon Dioxide Anion Gap BUN Creatinine Estim Creat Clear Calc Est GFR (MDRD) Af Amer Est GFR (MDRD) Non-Af BUN/Creatinine Ratio Glucose Calcium POC Glucose 01/15/18 01/15/18 01/14/18 05:51 05:10 21:37 POC Glucose 79 34 L* 344 H 01/14/18 01/14/18 17:07 10:46 POC Glucose > 500 H* 103 Assessment/Plan Active and Suspected Problems DKA (diabetic ketoacidoses) (Acute) NSTEMI (non-ST elevated myocardial infarction) (Acute) 1. UMA on CKD Stage 3 due to dehydration from DKA. Creatinine improved to 1.1 today. 2. Nausea, vomiting from DKA improved 3. DKA with severe metabolic acidosis resolved. Hypoglycemia early this am . 4. Cough, resp panel unremarkable. Fever resolved. Check CXR today 5. NSTEMI cardiology following 6. anemia check iron studies 7. Hx positive UNIQUE. Recheck DW hospitalist
--- NOTE | 2018-01-15 09:30 | EKG12_ITS ---
Test Reason : PCI Blood Pressure : / mmHG Vent. Rate : 054 BPM Atrial Rate : 054 BPM P-R Int : 144 ms QRS Dur : 078 ms QT Int : 450 ms P-R-T Axes : 070 -43 073 degrees QTc Int : 426 ms Sinus bradycardia Left axis deviation Anteroseptal infarct , age undetermined Abnormal ECG When compared with ECG of 15-JAN-2018 04:49, MANUAL COMPARISON REQUIRED, DATA IS UNCONFIRMED Confirmed by KIRBY MASON ([id number]), editor magazine HARPAL ELLIS ([id number]) on 01/19/2018 2:35:26 PM Referred By: MARLON Confirmed By:KIRBY MASON
--- NOTE | 2018-01-15 09:33 | PN.CARD_ITS ---
Subjectve: Patient seen and evaluated and underwent cardiac catheterization. Objective: Vital Signs Temp Pulse Resp BP Pulse Ox 98.3 F 58 L 18 120/60 95 01/15/18 05:54 01/15/18 07:12 01/15/18 05:54 01/15/18 05:54 01/15/18 05:54 Oxygen Flow Rate (L/min) 2 Oxygen Delivery Method Room Air Weight: 114 lb 3.191 oz Body Mass Index (BMI) 15.9 Finger Stick Blood Glucose 249 Intake and Output for Last 24 Hours 01/13/18 01/14/18 01/15/18 23:59 23:59 23:59 Intake Total 1245 / 1245 2993 / 2993 459 / 459 Output Total 1800 / 1800 3050 / 3050 Balance -555 / -555 -57 / -57 459 / 459 General: Awake, Alert, Oriented x 3 HEENT: PERRL, EOMI, Sclera Non Icteric Neck: Supple, Good ROM, No Lymph Node Enlargement Lungs: Clear to auscultation Cardiovascular: Regular Rhythm, Normal S1, Normal S2, No Murmurs, No Rubs, No Gallops Vascular: No Carotid Bruits, Normal Femoral Pulses, Normal Radial Pulses, Normal Dorsalis Pedal Pulse, Normal Posterior Tibial Pulses Abdomen: Bowel Sounds Present, Soft, Non Tender, No HSM, No Organomegaly Extremities: No Cyanosis, No Clubbing, No edema Neurological: No Focal Motor or Sensory Deficit 01/14/18 17:18: Glucose 467 H* 01/15/18 05:00: WBC 8.7, RBC 3.26 L, Hgb 9.9 L, Hct 30.3 L, MCV 92.9, MCH 30.4, MCHC 32.7, RDW 12.2, RDW Differential 40.3, Plt Count 173, MPV 10.1, Immature Gran % (Auto) 0.200, Neut % (Auto) 39.4 L, Lymph % (Auto) 46.8 H, [place] % (Auto) 6.8, Eos % (Auto) 6.3 H, Baso % (Auto) 0.5, Absolute Neuts (auto) 3.4, Total Counted Not Reportable 01/15/18 05:00: Sodium 141, Potassium 4.2, Chloride 108 H, Carbon Dioxide 26.0, Anion Gap 7, BUN 25 H, Creatinine 1.11 H, Est GFR (MDRD) Af Amer 65, Est GFR ( MDRD) Non-Af 54 L, BUN/Creatinine Ratio 22.5 H, Glucose 35 L*, Calcium 8.3 L 01/15/18 05:00: PT 12.6, INR 0.9, APTT 27.4 Rhythm: EKG: Normal sinus rhythm with no acute changes Assessment/Plan 1. Non-ST elevation myocardial infarction. Patient presents with mild confusion and noted to be in diabetic ketoacidosis and has an abnormal cardiac enzyme pattern. Patient also has renal dysfunction. An echocardiogram demonstrated that her ejection fraction was noted to be normal. She underwent a cardiac catheterization today which demonstrated the following: Normal left main coronary artery. Left anterior descending artery with mild disease. Tortuous left circumflex nondominant vessel with proximal 70% stenosis and mid 80% stenosis. Right coronary artery with mid segment 70-80% stenosis. Would recommend angioplasty and stenting to the right coronary artery and interval angioplasty and stenting to the circumflex artery after to 3 weeks after reaffirmation that her kidney function is normal. Total amount of contrast used was less than 60 cc. 2. Hypertension Continue treatment with antihypertensive with the beta-darwin at this time. 3. Risk factor modification Her diabetic status should be appropriately controlled . Her lipid levels appear to be quite within the norm and will continue with the statin. Thank you for allowing me to participate in the care of your patient. Please don't hesitate to call if any issues arise
--- NOTE | 2018-01-15 09:40 | CL.D_ITS ---
Patient Name: SANDY ELLIS Study Date: 01/15/2018 Performing: Salomon Robbins MD Ht: 66 inches 168 cm : 1960 Wt: 112.6 lbs 51 kg Age: 57 Gender: female BSA: 1.57 PROCEDURE(S) PERFORMED CB43-SRJ/COR [id number] W OR WO PTCA, SINGLE CORONARY ARTERY CLINICAL PROFILE AND INDICATIONS INDICATIONS: 57-year-old lady with a non-ST elevation myocardial infarction CONCLUSIONS Severe 2 vessel disease with RCA and LCX RECOMMENDATIONS Referred for immediate PCI DESCRIPTION OF PROCEDURE The patient arrived to the procedure lab. The risks and benefits of the procedure as well as a full d escription of our services here and current unavailability of surgical backup were fully explained to the patient and/or their significant other prior to the catheterization. The Timeout was completed, verifying the correct patient and procedure. The patient's procedural site was prepped and draped in the usual fashion. Local anesthetic was given subcutaneously to right groin region with Lidocaine 2%. Using a modified Seldinger technique, arterial access was obtained via the right femoral artery, a 5 Fr sheath was inserted. Left Coronary Artery selective angiography was performed in multiple views u sing a 5 Fr. JL3.5 catheter. Right Coronary Artery selective angiography was then performed in multip le views using a 5 Fr. 3DRC (Huey) catheter.The arterial sheath was sutured in place and capped CORONARY ANGIOGRAPHY DOMINANCE: Co- Dominant LEFT HEART ASSESSMENT Left Ventricular Ejection Fraction: by Echo 65 % Normal Left Ventricular systolic function LEFT MAIN: Angiographically normal, Angiographically normal LEFT ANTERIOR DECENDING ARTERY: Mild luminal irregularities CIRCUMFLEX ARTERY: OSTIAL CIRC: 30 % Stenosis PROX CIRC: 70 % Stenosis MID CIRC: 80 % Stenosis RIGHT CORONARY ARTERY: MID RCA: 80 % Stenosis COMPLICATIONS No Complications PROCEDURE MEDICATIONS Versed 1 mg IV Oxygen: 2 L/min via nasal cannula Heparin 6000 unit(s) IV 01/15/2018 09:05:13 Nitro 200 mcg IC 01/15/2018 09:07:17 Nitro 200 mcg IC 01/15/2018 09:07:17 Nitro 5 mcg IV started 01/15/2018 09:19:45 IV Fluids: .9 NaCl increased to wide open ml/hr 01/15/2018 09:05:57 SUMMARY OF HEMODYNAMIC DATA Time AIR REST ECG 08:26:38 AO 179/75 (112) SA 08:39:34 AO 146/69 (96) 09:10:44 Signed By Salomon Robbins MD On 01/15/2018 09:40:26 Salomon Robbins MD
--- NOTE | 2018-01-15 10:29 | CL.I_ITS ---
Patient Name: SANDY ELLIS Study Date: 01/15/2018 Performing: Yassine White MD Ht: 66 inches 168 cm : 1960 Wt: 112.6 lbs 51 kg Age: 57 Gender: female BSA: 1.57 PROCEDURE(S) PERFORMED [id number] W OR WO PTCA, SINGLE CORONARY ARTERY CLINICAL PROFILE AND CO-MORBIDITIES INDICATIONS: 57-year-old lady with a non-ST elevation myocardial infarction CONCLUSIONS Successful PTCA/SUNIL of the of mid RCA with a 2.5 x 28 Promus Synergy, post dilated with a 3.0 x 12 NC balloon; 75%-->0%, no dissection. Elective PCI of LCX in 2-3 weeks. RECOMMENDATIONS Highly recommend quitting all tobacco products Follow up with primary emergency medical services coordinator Risk factor modification ASA Indefinitley Plavix for at least 12 months Routine post interventional care Refer for Outpatient Cardiac Rehab Manual sheath removal per protocol Follow up with Dr. Robbins DESCRIPTION OF PROCEDURE The patient arrived to the procedure lab. The risks and benefits of the procedure as well as a full d escription of our services here and current unavailability of surgical backup were fully explained to the patient and/or their significant other prior to the catheterization. The Timeout was completed, verifying the correct patient and procedure. The patient's procedural site was prepped and draped in the usual fashion. Local anesthetic was given subcutaneously to right groin region with Lidocaine 2% Using a modified Seldinger technique,arterial access was obtained via the right femoral artery, a 5Fr sheath was inserted. Left Coronary Artery selective angiography was performed in multiple views usin g a 5 Fr. JL3.5 catheter. Right Coronary Artery selective angiography was then performed in multiple views using a 5 Fr. 3DRC (Huey) catheter.The images were reviewed and options discussed. A decisi on was then made to proceed with an Intervention, IVUS or other adjunct procedure. Arterial sheath was exchanged for a 6 Fr Sheath bmw Guide wire was advanced to the RCA. 2.5x28 synerg y sunil Drug Eluting stent was advanced across the lesion in the right coronary, mid. Angiogram perform ed pre stent deployment. 3.0x12 NC Balloon catheter was inserted post stent. PTCA balloon inflated at 12 atms for 12 secs PTCA balloon inflated at 12 atms for 10 secs PTCA balloon inflated at 12 atms fo r 10 secs Angiogram performed post balloon dilatation.. . The arterial sheath was sutured in place a nd capped. INTERVENTION INFORMATION LESION SITE: RCA (Mid) Lesion Complexity: High/C, Lesion Complexity: High/C, lesion at bifurcation: Yes, thrombus present: N o, lesion length: 28 mm, culprit lesion: Yes Pre Stenosis: 75 % Pre intervention KARY flow: 3 PROCEDURE: Drug Eluting Stent with pre and post dilatation Post Stenosis: 0 % Post intervention KARY flow: 3 Lesion Devices: East .014 [employer] [place] Straight 190cm General Bloodtronic 6 Fr HS1 100cm Guide Catheter Kilo Sci Synergy MR SUNIL 2.50x28 Kilo Sci NC EMERGE MR 3.00x12 BALLOON COMPLICATIONS No Complications PROCEDURE MEDICATIONS Versed 1 mg IV Oxygen: 2 L/min via nasal cannula Heparin 6000 unit(s) IV 01/15/2018 09:05:13 Nitro 200 mcg IC 01/15/2018 09:07:17 Nitro 200 mcg IC 01/15/2018 09:07:17 Nitro 5 mcg IV started 01/15/2018 09:19:45 IV Fluids: .9 NaCl increased to wide open ml/hr 01/15/2018 09:05:57 SUMMARY OF HEMODYNAMIC DATA Time AIR REST ECG 08:26:38 AO 179/75 (112) SA 08:39:34 AO 146/69 (96) 09:10:44 Signed By Yassine White MD On 01/15/2018 10:28:01 Yassine White MD
[2018-01-15] MEDS: Nitroglycerin Infusion 250 ML 3 MG IV (10:40)
[2018-01-15] MEDS: 0.9% Normal Saline 1,000 ML 150 ML IV (10:42)
[2018-01-15] MEDS: Pantoprazole Sodium 40 MG Tablet PO (10:43)
[2018-01-15] MEDS: Ceftriaxone 1 GM/50 ML BAG IV (10:44)
--- NOTE | 2018-01-15 10:52 | PCM.PN.HOSP ---
Patient Problems: Active and Suspected Problems DKA (diabetic ketoacidoses) (Acute) NSTEMI (non-ST elevated myocardial infarction) (Acute) Subjective: The patient had cardiac catheter today and was found to have stenosis at RCA and circumflex, mid RCA 70-80%, tortuous left circumflex proximal 70% and mid 80% stenosis. Patient had stent in RCA. Blood sugar is very brittle, ranges from 467-35 mg percent. Patient was advised about seeing an oil developer and needs closed-loop insulin pump. Objective: General: Alert, Oriented x3, Cooperative HEENT: Atraumatic, PERRLA, EOMI, Normocephalic Neck: Supple, No JVD, Negative Carotid Bruits Lungs: Clear to auscultation, Normal air movement Cardiovascular: Regular rate, Regular Rhythm, Normal S1, Normal S2, No murmurs Abdomen: Bowel Sounds Present, Soft, Non Tender, Non-Distended Extremities: No edema, Capillary Refill Less than 3 Seconds Skin: No rashes, No breakdown Musculoskeletal: No Tenderness to Palpation of Joints or Extremities, Arthritic Changes Neurological: Cranial nerves II-XII grossly intact Psych/Mental Status: Normal Affect, Appropriate Vitals/I&O's: Vital Signs Temp Pulse Resp BP Pulse Ox 98.3 F 58 L 18 120/60 95 01/15/18 05:54 01/15/18 07:12 01/15/18 05:54 01/15/18 05:54 01/15/18 05:54 Oxygen Flow Rate (L/min) 2 Oxygen Delivery Method Room Air Weight: 114 lb 3.191 oz Body Mass Index (BMI) 15.9 Finger Stick Blood Glucose 249 Intake and Output for Last 24 Hours 01/13/18 01/14/18 01/15/18 23:59 23:59 23:59 Intake Total 1245 / 1245 2993 / 2993 459 / 459 Output Total 1800 / 1800 3050 / 3050 Balance -555 / -555 -57 / -57 459 / 459 Microbiology Past 72 Hours 01/11/18 22:30 Blood Culture (Wb) - Anticubital Right Bacteria Detection (PCR) - Final Coag Negative Staph 01/11/18 22:30 Blood Culture (Wb) - Anticubital Right Blood Culture - Preliminary Coag Negative Staph 01/11/18 22:25 Blood Culture (Wb) - Anticubital Left Blood Culture - Preliminary No growth in 48 hours. 01/13/18 13:15 Mucosa - Nasopharyngeal Respiratory Panel (PCR) - Final 01/13/18 02:10 Mucosa - Nose Influenza Types A,B Direct FA (DANYELL) - Final 01/12/18 08:20 Stool Stool Occult Blood (DANYELL) - Final Laboratory Results 01/14/18 10:46: POC Glucose 103 01/14/18 17:07: POC Glucose > 500 H* 01/14/18 17:18: Glucose 467 H* 01/14/18 21:37: POC Glucose 344 H 01/15/18 05:00: WBC 8.7, RBC 3.26 L, Hgb 9.9 L, Hct 30.3 L, MCV 92.9, MCH 30.4, MCHC 32.7, RDW 12.2, RDW Differential 40.3, Plt Count 173, MPV 10.1, Immature Gran % (Auto) 0.200, Neut % (Auto) 39.4 L, Lymph % (Auto) 46.8 H, [place] % (Auto) 6.8, Eos % (Auto) 6.3 H, Baso % (Auto) 0.5, Absolute Neuts (auto) 3.4, Absolute Lymphs (auto) 4.08, Total Counted Not Reportable 01/15/18 05:00: Sodium 141, Potassium 4.2, Chloride 108 H, Carbon Dioxide 26.0, Anion Gap 7, BUN 25 H, Creatinine 1.11 H, Estim Creat Clear Calc 42.30, Est GFR (MDRD) Af Amer 65, Est GFR (MDRD) Non-Af 54 L, BUN/Creatinine Ratio 22.5 H, Glucose 35 L*, Calcium 8.3 L 01/15/18 05:00: PT 12.6, INR 0.9, APTT 27.4 01/15/18 05:10: POC Glucose 34 L* 01/15/18 05:51: POC Glucose 79 01/15/18 10:30: Total Creatine Kinase Pending 01/15/18 10:30: WBC Pending, RBC Pending, Hgb Pending, Hct Pending, MCV Pending, MCH Pending, MCHC Pending, RDW Pending, RDW Differential Pending, Plt Count Pending Current Medications Acetaminophen (Tylenol) 650 mg PO Q4H PRN PRN PRN Reason: pain/fever Last Admin: 01/14/18 10:00 Dose: 650 mg Aspirin (Ecotrin) 81 mg PO DAILY@0800 [facility] Atorvastatin Calcium (Lipitor) 20 mg PO QHS [facility] Last Admin: 01/14/18 21:46 Dose: 20 mg Atropine Sulfate () 0.5 mg IV UD PRN PRN Reason: HR <50 bpm Clopidogrel Bisulfate (Plavix) 75 mg PO DAILY [facility] Dextrose (D50w Syringe) 0 gm IV X1 PRN; Protocol PRN Reason: AGITATION Escitalopram Oxalate (Lexapro) 20 mg PO QHS [facility] Last Admin: 01/14/18 21:45 Dose: 20 mg Gabapentin (Neurontin) 300 mg PO QHS [facility] Last Admin: 01/14/18 21:47 Dose: 300 mg Glucagon () 1 mg IM .X1 PRN PRN Reason: Hypoglycemia Guaifenesin/Codeine Phosph[facility] ([facility]in Ac) [facility] Last Admin: 01/15/18 06:00 Dose: 5 ml Heparin Sodium (Porcine) () 0 units IV UD PRN PRN Reason: Protocol Sodium Chloride () 250 mls @ 15 mls/hr IV .[id number] PRN PRN Reason: SALINE FLUSH Last Admin: 01/12/18 00:30 Dose: 15 mls/hr Sodium Chloride () 1,000 mls @ 75 mls/hr IV .[id number] [facility] Last Admin: 01/14/18 21:45 Dose: 75 mls/hr Ceftriaxone Sodium (Rocephin) 1 gm in 50 mls @ 100 mls/hr IV Q24 [facility] Last Admin: 01/15/18 10:44 Dose: 100 mls/hr Sodium Chloride () 1,000 mls @ 15 mls/hr IV .Q48H [facility] PRN Reason: KVO Last Admin: 01/14/18 10:32 Dose: Not Given Sodium Chloride () 1,000 mls @ 150 mls/hr IV .Q6H40M [facility] Stop: 01/15/18 16:09 Last Admin: 01/15/18 10:42 Dose: 150 mls/hr Nitroglycerin/Dextrose () 250 mls @ 3 mls/hr IV .[id number] [facility] PRN Reason: 5 MCG/MIN Last Admin: 01/15/18 10:40 Dose: 3 mls/hr Insulin Aspart (Novolog Flexpen ([facility])) 0 units SC ACHS [facility] PRN Reason: Protocol Last Admin: 01/15/18 08:21 Dose: Not Given Insulin Detemir (Levemir ([facility])) 5 units SC DAILY PRN PRN Reason: GLUCOSE >250 mg% Isosorbide Mononitrate (Imdur) 30 mg PO DAILY [facility] Lisinopril (Zestril) 2.5 mg PO QHS [facility] Last Admin: 01/14/18 21:48 Dose: 2.5 mg Magnesium Hydroxide (Milk Of Magnesia) 30 ml PO DAILY PRN PRN PRN Reason: Constipation Metoprolol Tartrate (Lopressor (Beta Erwin)) 25 mg PO BID [facility] Last Admin: 01/15/18 05:57 Dose: 25 mg Ondansetron HCl (Zofran) 4 mg IV Q6H PRN PRN PRN Reason: NAUSEA Pantoprazole Sodium (Protonix) 40 mg PO DAILY [facility] Last Admin: 01/15/18 10:43 Dose: 40 mg Phenol/Menthol (Chloraseptic ([facility])) 3 spray MM Q2H PRN PRN PRN Reason: SORE THROAT Last Admin: 01/13/18 06:35 Dose: 3 sprays Sodium Chloride () 5 - 30 ml IV UD PRN PRN Reason: SALINE FLUSH Last Admin: 01/14/18 05:27 Dose: 20 ml Sodium Chloride ([place] Nasal [place]) 2 spray NASAL TID PRN PRN PRN Reason: NASAL DRYNESS Last Admin: 01/13/18 00:31 Dose: 2 spray Sodium Chloride () 500 ml IV BOLUS PRN PRN Reason: VASO-VAGAL PROTOCOL Throat Lozenges (Cepacol Sore Throat Lozenge) 1 lozenge MUCOUS MEM Q4H PRN PRN PRN Reason: SORE THROAT Assessment/Plan Active and Suspected Problems DKA (diabetic ketoacidoses) (Acute) NSTEMI (non-ST elevated myocardial infarction) (Acute) This is a 57 year old female type 1 diabetes mellitus, CKD III, HTN, COPD and dyslipidemia admitted for DKA. Patient was admitted in ICU and then transferred to PCU. Currently after PCI, patient is in ICU. 1) DKA history of type 1 diabetes mellitus.: The patient is being admitted in the ICU. Anion gap is closed. Bicarb 22. Blood sugar is in the range of 100-150 mg percent. Insulin drip stopped and switched to Accu-Chek before meals and at bedtime and cover with NovoLog sliding scale. On Levemir and adjust with regard to hypoglycemia. Blood pressure is recovered. Urine output 2200 mL in 24 hours. Continue IV fluid. 2) NSTEMI: The patient has been smoking a pack per day since age of 13. She is occasional drinker. Possible secondary to type II OR vs clearance from UMA. Trop 2.1, 2.06. IV heparin drip. Patient seen by Dr. lagos. Advised medical management with aspirin, Plavix and low-dose beta-erwin until patient is more stable. Patient had cardiac cath today and found EF severe two-vessel disease with RCA and left circumflex. Mid RCA 80% stenosis, ostial circumflex 30%, proximal circumflex 70% and mid circumflex 80%. She had a stent in mid RCA which was 75% stenosis. Advised elective PCI of left circumflex in 2-3 weeks. Diabetes mellitus type 1 with labile glucose control: Patient had hypoglycemia with blood sugar in 500 yesterday and she dropped blood sugar after NovoLog 15 units long-acting insulin. In the morning her blood sugar was in 40s-50s and now again in the evening 467 mg percent. Accu-Chek before meals and at bedtime and cover with NovoLog sliding scale. Levemir 5 units in the morning. And hold if blood sugar is less than 130 mg percent 3) acute kidney injury on CKD stage 3; mainly due to DKA with hypovolemia on top of diabetic nephropathy: Most likely secondary to ATN secondary to prolong azotemia from DKA. Her creatinine is improved to 1.3 8. As per the valve mechanic, she has CKD stage III with baseline creatinine around 1.5 in December 2017 and in August 2016.. Continue IV fluid resuscitation. Monitor intake and output. 4) Prophylaxis: SCD / heparin. Microbiology Past 72 Hours 01/11/18 20:30 Urine, Clean Catch Urine Culture - Preliminary Streptococcus agalactiae (B) Staphylococcus aureus 01/13/18 02:10 Mucosa - Nose Influenza Types A,B Direct FA (DANYELL) - Final 01/11/18 22:30 Blood Culture (Wb) - Anticubital Right Blood Culture - Preliminary 01/12/18 08:20 Stool Stool Occult Blood (DANYELL) - Final Laboratory Results 01/12/18 09:16: POC Glucose 222 H 01/12/18 11:26: POC Glucose 179 H 01/12/18 12:17: POC Glucose 160 H 01/12/18 14:40: Troponin I 1.81 H* 01/12/18 14:45: POC Glucose 128 H 01/12/18 16:36: POC Glucose 101 01/12/18 17:30: Urine Creatinine 88.80 01/12/18 17:30: U Random Total Protein 78.9 H 01/12/18 20:30: Sodium 145, Potassium 4.5, Chloride 114 H, Carbon Dioxide 24.0, Anion Gap 7, BUN 56 H, Creatinine 2.16 H, Estim Creat Clear Calc 20.03, Est GFR (MDRD) Af Amer 30 L, Est GFR (MDRD) Non-Af 25 L, BUN/Creatinine Ratio 25.9 H, Glucose 72 L, Calcium 7.4 L 01/12/18 21:01: POC Glucose 76 01/13/18 04:50: Hemoglobin A1c 10.5 H 01/13/18 04:50: UNIQUE Screen Pending 01/13/18 04:50: Sodium 143, Potassium 5.0, Chloride 112 H, Carbon Dioxide 22.0, Anion Gap 9, BUN 48 H, Creatinine 1.79 H, Estim Creat Clear Calc 27.80, Est GFR (MDRD) Af Amer 37 L, Est GFR (MDRD) Non-Af 31 L, BUN/Creatinine Ratio 26.8 H, Glucose 281 H, Calcium 7.5 L 01/13/18 06:28: POC Glucose 363 H Code Visit Inpatient E&M: 40229 Subs Hosp L3
[2018-01-15 10:55] LABS: Hematocrit 25.8 % (37-47); Hemoglobin 8.4 g/dl (12.0-15.0); Mean Corp Hgb Conc 32.6 g/gl (32-36); Mean Corpuscular Hgb 30.2 pg (27.0-32.0); Mean Corpuscular Volume 92.8 fL (81-99); Mean Platelet Vol. 9.9 fl (6.2-12.0); Platelet Count 149 K/mm3 (150-450); RBC Distribution Width CV 12.6 % (11.6-14.6); Red Blood Count 2.78 M/mm3 (4.2-5.4); White Blood Count 7.6 K/mm3 (4.4-11.0)
[2018-01-15 10:57] LABS: Scan Indicated on CBC? Y/N NO
[2018-01-15 11:03] LABS: CPK Total, Creatine Kinase 39 U/L (26-192)
[2018-01-15 11:55] LABS: ACT Activated Clotting Time 153 sec (74-137)
[2018-01-15 12:00] LABS: ACT Activated Clotting Time 213 sec (74-137)
[2018-01-15 12:15] LABS: Bedside Glucose 93 mg/dL (70-110)
[2018-01-15] MEDS: Isosorbide Mononitrate 30 MG Tablet PO (12:16)
[2018-01-15 12:27] LABS: Anti-Nuclear Antibody Test Negative (.)
--- NOTE | 2018-01-15 13:42 | NURSING ---
Ishaan, animal laboratory helper RN at bedside for sheath pull
--- NOTE | 2018-01-15 13:43 | CRPHASE1 ---
Patient Data/Charges Purchasing Associate:: Yassine White Refer Phase II:: Yes Phase II Referral:: [facility] Start Phase II:: After follow up visit with Cardiology. Phase I Charge:: Level I - Education Risk Factors/Lifestyle Smoking Status: Current every day smoker Hx Hypertension: Yes Hx Diabetes Mellitus Type 2: Yes Hx Dyslipidemia: Yes Hx Obesity: No Height: 1.68 m Weight:: 51.71 kg BMI: 18.3 Stress: Recent Risk Factor for Sedentary Lifestyle: Highest Risk Laboratory Values: Cardiac Rehab Phase I Labs Hemoglobin A1c 10.5 % (4.2-6.3) H 01/13/18 04:50 Triglycerides 92 mg/dL (-199) 01/14/18 02:50 Cholesterol 134 mg/dL (200) 01/14/18 02:50 LDL Cholesterol 57 mg/dL (0-130) 01/14/18 02:50 HDL Cholesterol 59 mg/dL (40-) 01/14/18 02:50 Phase I Education Given On:: [place], Nutrition, Antiplatelet medication, CHF, Smoking cessation, Diabetes - Type II Issues Affecting Care:: Physical Knowledge of Condition:: Yes Learning Preferences: Verbal, Written, Audio/Visual, Demonstration Medical/Surgical History Pulmonary:: Yes - COPD COPD:: Yes Diabetes Type II:: Yes Hypertension:: Yes Dyslipidemia:: Yes Renal:: Yes - CKD stage 3
--- NOTE | 2018-01-15 13:48 | CRPHASE1_ITS ---
Patient Data/Charges Insole Buffer:: Yassine White Refer Phase II:: Yes Phase II Referral:: [facility] Start Phase II:: After follow up visit with Cardiology. Phase I Charge:: Level I - Education Risk Factors/Lifestyle Smoking Status: Current every day smoker Hx Hypertension: Yes Hx Diabetes Mellitus Type 2: Yes Hx Dyslipidemia: Yes Hx Obesity: No Height: 1.68 m Weight:: 51.71 kg BMI: 18.3 Stress: Recent Risk Factor for Sedentary Lifestyle: Highest Risk Laboratory Values: Cardiac Rehab Phase I Labs Hemoglobin A1c 10.5 % (4.2-6.3) H 01/13/18 04:50 Triglycerides 92 mg/dL (-199) 01/14/18 02:50 Cholesterol 134 mg/dL (200) 01/14/18 02:50 LDL Cholesterol 57 mg/dL (0-130) 01/14/18 02:50 HDL Cholesterol 59 mg/dL (40-) 01/14/18 02:50 Phase I Education Given On:: [place], Nutrition, Antiplatelet medication, CHF, Smoking cessation, Diabetes - Type II Issues Affecting Care:: Physical Knowledge of Condition:: Yes Learning Preferences: Verbal, Written, Audio/Visual, Demonstration Medical/Surgical History Pulmonary:: Yes - COPD COPD:: Yes Diabetes Type II:: Yes Hypertension:: Yes Dyslipidemia:: Yes Renal:: Yes - CKD stage 3
--- NOTE | 2018-01-15 13:48 | CRPH1.INSTRU ---
General Education CAD and cardiac anatomy and function:: Patient communicates acknowledgment, Needs reinforcement Explanation of diagnoses and procedures:: Patient communicates acknowledgment, Needs reinforcement Sign/Symptoms of PR:: Patient communicates acknowledgment, Needs reinforcement Antiplatelet therapy: Patient communicates acknowledgment, Needs reinforcement Proper use of NTG-SL: Patient communicates acknowledgment, Needs reinforcement Emergency procedures and activation of EMS: Patient communicates acknowledgment, Needs reinforcement Compliance of all prescribed medications: Patient communicates acknowledgment, Needs reinforcement Smoking Patient Nicotine/Smoking Risk Factors Are:: Cigarettes Recommendations Include:: Smoking cessation strategies/Smoking packet, Second-hand smoke recommendation, Participation in a smoking cessation program Nicotine/Smoking Response Code:: Patient communicates acknowledgment, Needs reinforcement Dyslipidemia Patient Dyslipidemia Risk Factors Are:: Total Cholesterol, Triglycerides, HDL, LDL Recommendations Include:: Lipid profile provided, Reviewed NCEP/ATP guidelines, Therapeutic Lifestyle Change dietary guidelines Dyslipidemia Response Code:: Patient communicates acknowledgment Overweight/Obesity Overweight/Obesity:: Not instructed Hypertension Recommendations Include:: Maintain BP <130/85, BP <130/80 if diabetic, DASH dietary guidelines, Decrease/maintain normal body weight, Moderation of ETOH Hypertension:: Patient communicates acknowledgment, Needs reinforcement Heart Disease Recommendations Include:: Educated family members of their risk, Educated family members of importance of prevention of heart disease Heart Disease Response Code:: Patient communicates acknowledgment, Needs reinforcement Diabetes Patient Diabetes Risk Factors Are:: Elevated blood sugars Recommendations Include:: Maintain fasting blood sugars 70-110 md/dL, Maintain HgbA1c of 6% or less, Monitor blood sugar as prescribed, Diabetic dietary guidelines, Decrease/maintain body weight Diabetes:: Patient communicates acknowledgment, Needs reinforcement Metabolic Syndrome Metabolic Syndrome Response Code:: Not instructed Sedentary Patient Sedentary Risk Factors Are:: Lack of regular exercise Recommendations Include:: Aerobic exercise 5-7 times/week for 20-30 minutes continuously, Benefits of regular exercise, Discussed home walking program, Monitored Outpatient Cardiac Rehab Sedentary Response Code:: Patient communicates acknowledgment, Needs reinforcement Stress Recommendations Include:: Identification of stressors, and assessment of coping skills, Stress management techniques Stress Response Code:: Patient communicates acknowledgment, Needs reinforcement
--- NOTE | 2018-01-15 13:53 | CRPH1.INST_ITS ---
General Education CAD and cardiac anatomy and function:: Patient communicates acknowledgment, Needs reinforcement Explanation of diagnoses and procedures:: Patient communicates acknowledgment, Needs reinforcement Sign/Symptoms of OH:: Patient communicates acknowledgment, Needs reinforcement Antiplatelet therapy: Patient communicates acknowledgment, Needs reinforcement Proper use of NTG-SL: Patient communicates acknowledgment, Needs reinforcement Emergency procedures and activation of EMS: Patient communicates acknowledgment , Needs reinforcement Compliance of all prescribed medications: Patient communicates acknowledgment, Needs reinforcement Smoking Patient Nicotine/Smoking Risk Factors Are:: Cigarettes Recommendations Include:: Smoking cessation strategies/Smoking packet, Second- hand smoke recommendation, Participation in a smoking cessation program Nicotine/Smoking Response Code:: Patient communicates acknowledgment, Needs reinforcement Dyslipidemia Patient Dyslipidemia Risk Factors Are:: Total Cholesterol, Triglycerides, HDL, LDL Recommendations Include:: Lipid profile provided, Reviewed NCEP/ATP guidelines, Therapeutic Lifestyle Change dietary guidelines Dyslipidemia Response Code:: Patient communicates acknowledgment Overweight/Obesity Overweight/Obesity:: Not instructed Hypertension Recommendations Include:: Maintain BP <130/85, BP <130/80 if diabetic, DASH dietary guidelines, Decrease/maintain normal body weight, Moderation of ETOH Hypertension:: Patient communicates acknowledgment, Needs reinforcement Heart Disease Recommendations Include:: Educated family members of their risk, Educated family members of importance of prevention of heart disease Heart Disease Response Code:: Patient communicates acknowledgment, Needs reinforcement Diabetes Patient Diabetes Risk Factors Are:: Elevated blood sugars Recommendations Include:: Maintain fasting blood sugars 70-110 md/dL, Maintain HgbA1c of 6% or less, Monitor blood sugar as prescribed, Diabetic dietary guidelines, Decrease/maintain body weight Diabetes:: Patient communicates acknowledgment, Needs reinforcement Metabolic Syndrome Metabolic Syndrome Response Code:: Not instructed Sedentary Patient Sedentary Risk Factors Are:: Lack of regular exercise Recommendations Include:: Aerobic exercise 5-7 times/week for 20-30 minutes continuously, Benefits of regular exercise, Discussed home walking program, Monitored Outpatient Cardiac Rehab Sedentary Response Code:: Patient communicates acknowledgment, Needs reinforcement Stress Recommendations Include:: Identification of stressors, and assessment of coping skills, Stress management techniques Stress Response Code:: Patient communicates acknowledgment, Needs reinforcement
[2018-01-15] MEDS: 0.9% Normal Saline 1,000 ML 75 ML IV ×2 (15:58→22:52)
[2018-01-15] MEDS: Acetaminophen 325 MG Tablet 650 MG PO (16:09)
[2018-01-15 16:11] LABS: Bedside Glucose 296 mg/dL (70-110)
[2018-01-15 17:03] LABS: Hematocrit 26.6 % (37-47); Hemoglobin 8.5 g/dl (12.0-15.0); Mean Platelet Vol. 9.6 fl (6.2-12.0); Platelet Count 140 K/mm3 (150-450); RBC Distribution Width CV 12.6 % (11.6-14.6); RBC Distribution Width SD 43.4 fl (35.1-43.9); Red Blood Count 2.83 M/mm3 (4.2-5.4); White Blood Count 5.3 K/mm3 (4.4-11.0)
[2018-01-15 17:04] LABS: Scan Indicated on CBC? Y/N NO
[2018-01-15 17:44] LABS: CPK Total, Creatine Kinase 46 U/L (26-192)
[2018-01-15] MEDS: Escitalopram Oxalate 20 MG Tablet PO (21:23)
[2018-01-15] MEDS: Atorvastatin Calcium 20 MG Tablet PO (21:23)
[2018-01-15] MEDS: Gabapentin 300 MG Capsule PO (21:24)
[2018-01-15] MEDS: Lisinopril 2.5 MG Tablet PO (21:25)
[2018-01-15 21:36] LABS: Bedside Glucose 260 mg/dL (70-110)
[2018-01-15] MEDS: 0.9% NaCl Peripheral Flush Adult/Peds IV (22:24)
[2018-01-15 22:43] LABS: Hematocrit 25.9 % (37-47); Hemoglobin 8.4 g/dl (12.0-15.0); Mean Corp Hgb Conc 32.4 g/gl (32-36); Mean Corpuscular Hgb 30.2 pg (27.0-32.0); Mean Corpuscular Volume 93.2 fL (81-99); Mean Platelet Vol. 9.6 fl (6.2-12.0); Platelet Count 159 K/mm3 (150-450); RBC Distribution Width CV 12.5 % (11.6-14.6); RBC Distribution Width SD 42.4 fl (35.1-43.9); Red Blood Count 2.78 M/mm3 (4.2-5.4); Scan Indicated on CBC? Y/N NO
[2018-01-15 23:00] LABS: CPK Total, Creatine Kinase 43 U/L (26-192)
[2018-01-16] VITALS (13 sets, daily range): BP systolic 120–160; BP diastolic 42–63; PULSE 58–70; RESP 16–19; TEMP 36.6–36.8; O2SAT 91–100
[2018-01-16 05:15] LABS: Hematocrit 23.9 % (37-47); Hemoglobin 7.8 g/dl (12.0-15.0); Mean Corp Hgb Conc 32.6 g/gl (32-36); Mean Corpuscular Hgb 30.8 pg (27.0-32.0); Mean Corpuscular Volume 94.5 fL (81-99); Mean Platelet Vol. 10.2 fl (6.2-12.0); Platelet Count 154 K/mm3 (150-450); RBC Distribution Width CV 11.9 % (11.6-14.6); RBC Distribution Width SD 39.5 fl (35.1-43.9); Red Blood Count 2.53 M/mm3 (4.2-5.4); White Blood Count 6.1 K/mm3 (4.4-11.0)
[2018-01-16 05:16] LABS: Scan Indicated on CBC? Y/N NO
[2018-01-16 05:40] LABS: Anion Gap 5 (5-15); BUN 18 mg/dL (7-18); BUN/Creat Ratio 18.3 RATIO (10-20); Calcium,Total 7.5 mg/dL (8.5-10.1); Chloride 109 mmol/L (98-107); Creatinine, Serum 0.99 mg/dL (0.55-1.02); EST Glomerular Filtration Rate 62 mL/min (>60); Est Glom Filt Rate - Afr Amer 74 mL/min (>60); Estimated Creatinine Clearance 50.56 ml/min; Glucose 58 mg/dL (74-106); Potassium 4.5 mmol/L (3.5-5.1); Sodium Level 142 mmol/L (136-145)
[2018-01-16] MEDS: guaiFENesin/Codeine 5 ML UDC PO ×2 (06:46→07:38)
[2018-01-16] MEDS: 0.9% NaCl Peripheral Flush Adult/Peds IV (06:46)
[2018-01-16] MEDS: Isosorbide Mononitrate 30 MG Tablet PO (07:33)
[2018-01-16] MEDS: Clopidogrel Bisulfate 75 MG Tablet PO (07:33)
[2018-01-16] MEDS: Pantoprazole Sodium 40 MG Tablet PO (07:33)
[2018-01-16] MEDS: Aspirin E.C. 81 MG Tablet PO (07:33)
[2018-01-16] MEDS: Metoprolol Tartrate 25 MG Tablet PO (07:37)
[2018-01-16 07:46] LABS: Bedside Glucose 107 mg/dL (70-110)
--- NOTE | 2018-01-16 08:00 | PCM.PN.CARD ---
Subjectve: The patient was seen and evaluated. Objective: Vital Signs Temp Pulse Resp BP Pulse Ox 98.2 F 62 18 154/63 H 92 01/16/18 04:00 01/16/18 07:37 01/16/18 07:00 01/16/18 07:37 01/16/18 07:00 Oxygen Flow Rate (L/min) 2 Oxygen Delivery Method Room Air Weight: 116 lb 6.465 oz Body Mass Index (BMI) 15.9 Finger Stick Blood Glucose 249 Intake and Output for Last 24 Hours 01/14/18 01/15/18 01/16/18 23:59 23:59 23:59 Intake Total 2993 / 2993 459 / 459 2285 / 2285 Output Total 3050 / 3050 300 / 300 Balance -57 / -57 159 / 159 2285 / 2285 General: Awake, Alert, Oriented x 3 HEENT: PERRL, EOMI, Sclera Non Icteric Neck: Supple, Good ROM, No Lymph Node Enlargement Lungs: Clear to auscultation Cardiovascular: Regular Rhythm, Normal S1, Normal S2, No Murmurs, No Rubs, No Gallops Vascular: No Carotid Bruits, Normal Femoral Pulses, Normal Radial Pulses, Normal Dorsalis Pedal Pulse, Normal Posterior Tibial Pulses Abdomen: Bowel Sounds Present, Soft, Non Tender, No HSM, No Organomegaly Extremities: No Cyanosis, No Clubbing, No edema Neurological: No Focal Motor or Sensory Deficit 01/15/18 10:30: WBC 7.6, RBC 2.78 L, Hgb 8.4 L, Hct 25.8 L, MCV 92.8, MCH 30.2, MCHC 32.6, RDW 12.6, RDW Differential 43.0, Plt Count 149 L, MPV 9.9 01/15/18 16:40: WBC 5.3, RBC 2.83 L, Hgb 8.5 L, Hct 26.6 L, MCV 94.0, MCH 30.0, MCHC 32.0, RDW 12.6, RDW Differential 43.4, Plt Count 140 L, MPV 9.6 01/15/18 22:30: WBC 8.0, RBC 2.78 L, Hgb 8.4 L, Hct 25.9 L, MCV 93.2, MCH 30.2, MCHC 32.4, RDW 12.5, RDW Differential 42.4, Plt Count 159, MPV 9.6 01/16/18 04:25: WBC 6.1, RBC 2.53 L, Hgb 7.8 L, Hct 23.9 L, MCV 94.5, MCH 30.8, MCHC 32.6, RDW 11.9, RDW Differential 39.5, Plt Count 154, MPV 10.2 01/16/18 04:25: Sodium 142, Potassium 4.5, Chloride 109 H, Carbon Dioxide 28.0, Anion Gap 5, BUN 18, Creatinine 0.99, Est GFR (MDRD) Af Amer 74, Est GFR (MDRD) Non-Af 62, BUN/Creatinine Ratio 18.3, Glucose 58 L, Calcium 7.5 L Assessment/Plan 1. Non-ST elevation myocardial infarction. Patient presents with mild confusion and noted to be in diabetic ketoacidosis and has an abnormal cardiac enzyme pattern. Patient also has renal dysfunction which has improved. An echocardiogram demonstrated that her ejection fraction was noted to be normal. She underwent a cardiac catheterization which demonstrated the following: Normal left main coronary artery. Left anterior descending artery with mild disease. Tortuous left circumflex nondominant vessel with proximal 70% stenosis and mid 80% stenosis. Right coronary artery with mid segment 70-80% stenosis. She underwent angioplasty and stenting to the right coronary artery and interval angioplasty and stenting to the circumflex artery after to 3 weeks after reaffirmation that her kidney function is normal. Her renal function remained stable and her hemoglobin did not drop significantly. 2. Hypertension Continue treatment with antihypertensive with the beta-darwin at this time. 3. Risk factor modification Her diabetic status should be appropriately controlled . Her lipid levels appear to be quite within the norm and will continue with the statin. Thank you for allowing me to participate in the care of your patient. Please don't hesitate to call if any issues arise From the cardiovascular standpoint she can be discharged to be followed up as an outpatient.
--- NOTE | 2018-01-16 09:23 | PCM.DC ---
- Discharge Diagnoses Current Active Problems: Current Active and Chronic Problems DKA (diabetic ketoacidoses) (Acute) NSTEMI (non-ST elevated myocardial infarction) (Acute) You will use the following diet at home:: Calorie/Carbohydrate Controlled (specify 1200, 1400, etc) - 1800 [place] diet Discharge Activity: May not drive while taking narcotic pain medications. Allergies/Adverse Reactions: Allergies No Known Allergies Allergy (Verified 01/11/18 19:13) Medications to take at Discharge Insulin Aspart [Novolog Flexpen] 10 unit SC TIDCM 01/21/15 Simvastatin 40 mg PO QHS 01/21/15 Albuterol Sulfate [Proventil Hfa] 6.7 gm IH Q2H PRN PRN #1 hfa.aer.ad 03/11/15 Escitalopram Oxalate [Lexapro] 20 mg PO QHS 08/19/16 Ondansetron [Zofran] 8 mg PO Q8H PRN PRN #15 tablet 08/20/16 Insulin Detemir [Levemir FlexPen] 12 units SC QHS 01/11/18 Insulin Lispro [Humalog Kwikpen] 10 unit SQ TIDCM 01/11/18 Aspirin E.C. [Ecotrin] 81 mg PO DAILY@0800 #30 tab 01/16/18 Clopidogrel Bisulfate [Plavix] 75 mg PO DAILY #30 tab 01/16/18 Gabapentin [Neurontin] 300 mg PO QHS #30 cap 01/16/18 Insulin Glargine [Lantus SoloStar Pen] 8 unit SC BREAKFAST #0 01/16/18 Isosorbide Mononitrate [Imdur] 30 mg PO DAILY #30 tab 01/16/18 Lisinopril [Zestril] 5 mg PO DAILY #30 tab 01/16/18 Metoprolol Tartrate [Lopressor (beta darwin)] 25 mg PO BID #60 tab 01/16/18 The following prescriptions were given: Aspirin E.C. [Ecotrin] 81 mg PO DAILY@0800 #30 tab Clopidogrel Bisulfate [Plavix] 75 mg PO DAILY #30 tab Gabapentin [Neurontin] 300 mg PO QHS #30 cap Isosorbide Mononitrate [Imdur] 30 mg PO DAILY #30 tab Lisinopril [Zestril] 5 mg PO DAILY #30 tab Metoprolol Tartrate [Lopressor (beta darwin)] 25 mg PO BID #60 tab Primary Care Physician: Sin Lujan MD [Primary Care Provider] - Please follow up with your Primary Care Physician in: in 1-2 weeks Please Follow Up With: Taylor Spain, CONCRETE CRAFTSMAN-C When: for brittle DM-1 Please Follow Up With: Salomon Robbins MD When: IN 2-3 WEEKS
--- NOTE | 2018-01-16 09:24 | PCM.DC.SUM ---
Discharge Date and Diagnosis Date of Admission: 01/11/18 Date of Discharge: 01/16/18 - Primary Discharge Diagnosis Active and Suspected Problems 1) DKA history of type 1 diabetes mellitus.: 2) NSTEMI with RCA and left circumflex stenosis: 3. Acute anemia, normocytic, normocytic anemia with history of anemia of chronic disease secondary to CKD stage III. H&H is stable Diabetes mellitus type 1 with labile glucose control: 3) acute kidney injury on CKD stage 3; mainly due to DKA with hypovolemia on top of diabetic nephropathy: Most likely secondary to ATN secondary to prolong azotemia from DKA. - Secondary Discharge Diagnosis Chronic Problems Chronic constipation (Chronic) Tobacco use (Chronic) Hyperlipidemia (Chronic) COPD (chronic obstructive pulmonary disease) (Chronic) CKD (chronic kidney disease) stage 3, GFR 30-59 ml/min (Chronic) DM type 1 (diabetes mellitus, type 1) (Chronic) Type II diabetes mellitus (Chronic) Hospital Course and Treatment Operations: None Summary of Care Provided: [] This is a 57 year old female type 1 diabetes mellitus, CKD III, HTN, COPD and dyslipidemia admitted for DKA. Patient was admitted in ICU and then transferred to PCU. Currently after PCI, patient is in ICU. 1) DKA history of type 1 diabetes mellitus.: The patient is being admitted in the ICU. Anion gap is closed. Bicarb 22. Blood sugar is in the range of 100-150 mg percent. Insulin drip stopped and switched to Accu-Chek before meals and at bedtime and cover with NovoLog sliding scale. On Levemir and adjust with regard to hypoglycemia. Blood pressure is recovered. Urine output 2200 mL in 24 hours. Continue IV fluid. 2) NSTEMI with RCA and left circumflex stenosis: The patient has been smoking a pack per day since age of 13. She is occasional drinker. Possible secondary to type II OH vs clearance from UMA. Trop 2.1, 2.06. IV heparin drip. Patient seen by Dr. lagos. Advised medical management with aspirin, Plavix and low-dose beta-erwin until patient is more stable. Patient had cardiac cath today and found EF severe two-vessel disease with RCA and left circumflex. Mid RCA 80% stenosis, ostial circumflex 30%, proximal circumflex 70% and mid circumflex 80%. She had a stent in mid RCA which was 75% stenosis. Advised elective PCI of left circumflex in 2-3 weeks. 3. Acute anemia, normocytic, normocytic anemia with history of anemia of chronic disease secondary to CKD stage III hemoglobin is between 8-9 g percent.; Last one 7.9 g percent. No obvious external form of bleeding. Diabetes mellitus type 1 with labile glucose control: Patient had hypoglycemia with blood sugar in 500 yesterday and she dropped blood sugar after NovoLog 15 units long-acting insulin. In the morning her blood sugar was in 40s-50s and now again in the evening 467 mg percent. Accu-Chek before meals and at bedtime and cover with NovoLog sliding scale. Levemir 5 units in the morning. And hold if blood sugar is less than 130 mg percent 3) acute kidney injury on CKD stage 3; mainly due to DKA with hypovolemia on top of diabetic nephropathy: Most likely secondary to ATN secondary to prolong azotemia from DKA. Her creatinine is improved to 0.9. As per the receiving inspector, she has CKD stage III with baseline creatinine around 1.5 in December 2017 and in August 2016.. Continue IV fluid resuscitation. Monitor intake and output. Acute kidney injury resolved. Creatinine 0.9. 4) Prophylaxis: SCD / heparin. Discharge meds reconciliation done. Prescription sent to the pharmacy. The patient was advised to follow-up with elementary school reading teacher for better control of sugar and probably needs closed-loop insulin pump. Discharge instructions completed Total time spent, exact 32 minutes on discharge meds reconciliation, examination, review of imaging and blood test and discussion with the patient on follow-up instructions. Discharge Activity: May not drive while taking narcotic pain medications. Home Medications: Medications to take at Discharge Insulin Aspart [Novolog Flexpen] 10 unit SC TIDCM 01/21/15 Simvastatin 40 mg PO QHS 01/21/15 Albuterol Sulfate [Proventil Hfa] 6.7 gm IH Q2H PRN PRN #1 hfa.aer.ad 03/11/15 Escitalopram Oxalate [Lexapro] 20 mg PO QHS 08/19/16 Ondansetron [Zofran] 8 mg PO Q8H PRN PRN #15 tablet 08/20/16 Insulin Detemir [Levemir FlexPen] 12 units SC QHS 01/11/18 Insulin Lispro [Humalog Kwikpen] 10 unit SQ TIDCM 01/11/18 Aspirin E.C. [Ecotrin] 81 mg PO DAILY@0800 #30 tab 01/16/18 Clopidogrel Bisulfate [Plavix] 75 mg PO DAILY #30 tab 01/16/18 Gabapentin [Neurontin] 300 mg PO QHS #30 cap 01/16/18 Insulin Glargine [Lantus SoloStar Pen] 8 unit SC BREAKFAST #0 01/16/18 Isosorbide Mononitrate [Imdur] 30 mg PO DAILY #30 tab 01/16/18 Lisinopril [Zestril] 5 mg PO DAILY #30 tab 01/16/18 Metoprolol Tartrate [Lopressor (beta erwin)] 25 mg PO BID #60 tab 01/16/18 Following Prescrptions Were Given to Patient: Aspirin E.C. [Ecotrin] 81 mg PO DAILY@0800 #30 tab Clopidogrel Bisulfate [Plavix] 75 mg PO DAILY #30 tab Gabapentin [Neurontin] 300 mg PO QHS #30 cap Isosorbide Mononitrate [Imdur] 30 mg PO DAILY #30 tab Lisinopril [Zestril] 5 mg PO DAILY #30 tab Metoprolol Tartrate [Lopressor (beta erwin)] 25 mg PO BID #60 tab Primary Care Physician: Sin Lujan MD [Primary Care Provider] - Please follow up with your Primary Care Physician in: in 1-2 weeks Please Follow Up With: Taylor Spain, WAREHOUSE STOCKER-C When: for brittle DM-1 Please Follow Up With: Salomon Lagos MD When: IN 2-3 WEEKS Meaningful Use Info Meaningful Use Diagnoses (Choose all that apply): AMI - AMI Aspirin given w/in 24hrs of arrival?: Yes ASA at discharge?: Yes Statins at discharge?: Yes Igor/ARB at discharge?: Yes Beta Erwin at discharge?: Yes Done w/ Acute OH measure.: Yes Code Visit Inpatient E&M: 34712 Disch Hosp
--- NOTE | 2018-01-16 09:30 | EKG12_ITS ---
Test Reason : MORNING EKG Blood Pressure : / mmHG Vent. Rate : 059 BPM Atrial Rate : 059 BPM P-R Int : 138 ms QRS Dur : 072 ms QT Int : 428 ms P-R-T Axes : 073 001 079 degrees QTc Int : 423 ms Sinus bradycardia Septal infarct , age undetermined Abnormal ECG When compared with ECG of 15-JAN-2018 09:49, MANUAL COMPARISON REQUIRED, DATA IS UNCONFIRMED Confirmed by KIRBY MASON ([id number]), visual effects editor HARPAL ELLIS ([id number]) on 01/19/2018 2:17:38 PM Referred By: BRAD Confirmed By:KIRBY MASON
[2018-01-16] MEDS: Ceftriaxone 1 GM/50 ML BAG IV (09:41)
[2018-01-16] MEDS: Lisinopril 5 MG Tablet PO (09:41)
[2018-01-16 09:52] LABS: Hematocrit 24.3 % (37-47); Hemoglobin 7.9 g/dl (12.0-15.0); Mean Corp Hgb Conc 32.5 g/gl (32-36); Mean Corpuscular Hgb 30.9 pg (27.0-32.0); Mean Corpuscular Volume 94.9 fL (81-99); Mean Platelet Vol. 9.9 fl (6.2-12.0); Platelet Count 143 K/mm3 (150-450); RBC Distribution Width CV 11.8 % (11.6-14.6); RBC Distribution Width SD 39.1 fl (35.1-43.9); Red Blood Count 2.56 M/mm3 (4.2-5.4); White Blood Count 6.2 K/mm3 (4.4-11.0)
[2018-01-16 09:53] LABS: Scan Indicated on CBC? Y/N NO
== END 2018-01-16 10:30 | disposition home or self-care (01) | DRG 246 ==
LOC: ED 21:31 → ICU 22:09 → PCU 01-13 13:19 → ICU 01-15 09:25
PROVIDERS: Family Medicine; Internal Medicine Cardiovascular Disease; Internal Medicine Nephrology; Admitting Provider Internal Medicine; Emergency Provider Emergency Medicine; Family Provider Family Medicine; PCP Family Medicine; Visit Provider Internal Medicine
DX: I21.4 Non-ST elevation (NSTEMI) myocardial infarction (principal); E10.10 Type 1 diabetes mellitus with ketoacidosis without coma; N17.0 Acute kidney failure with tubular necrosis; E10.22 Type 1 diabetes mellitus with diabetic chronic kidney disease; N18.3 Chronic kidney disease, stage 3 (moderate); Z79.4 Long term (current) use of insulin; I12.9 Hypertensive chronic kidney disease with stage 1 through stage 4 chronic kidney disease, or unspecified chronic kidney disease; D63.1 Anemia in chronic kidney disease; J44.9 Chronic obstructive pulmonary disease, unspecified; E78.5 Hyperlipidemia, unspecified; K59.09 Other constipation; F17.210 Nicotine dependence, cigarettes, uncomplicated; I25.10 Atherosclerotic heart disease of native coronary artery without angina pectoris; E86.0 Dehydration
CPT/HCPCS: 36415; 36600; 51702; 71045; 71046; 80048; 80061; 80307; 81001; 82009; 82274; 82550; 82570; 82803; 82947; 82962; 83036; 84156; 84484; 85025; 85027; 85347; 85610; 85730; 86038; 87040; 87077; 87086; 87088; 87149; 87186; 87633; 87641; 87804; 92928; 93005; 93306; 93458; 99152; 99153; 99285; 99406; J7030; J7050; A4216; C1725; C1769; C1874; C1887; C9600; J7799; Q9967

== ENCOUNTER 2018-02-04 07:47 | Day surgery (SDC) | payer OTHER, SELFPAY ==
[2018-01-28 10:29] LABS: Absolute Lymphocyte Count 2.48 X10^3/ul (0.83-4.51); Absolute Neutrophil Count 3.2 X10^3/uL (2.0-7.7); Basophil# 0.09 X10^3/uL; Basophil% 1.3 % (0-1); Eosinophil# 0.23 X10^3/uL; Eosinophils% 3.4 % (0-5); Hematocrit 33.2 % (37-47); Hemoglobin 10.1 g/dl (12.0-15.0); Lymphocyte # 2.48 X10^3/ul (4.0); Lymphocyte % 37.1 % (19-41); Mean Corp Hgb Conc 30.4 g/gl (32-36); Mean Corpuscular Hgb 29.6 pg (27.0-32.0); Mean Corpuscular Volume 97.4 fL (81-99); Mean Platelet Vol. 9.8 fl (6.2-12.0); Monocyte# 0.66 X10^3/uL; Monocyte% 9.9 % (0-10); Neutrophil # 3.21 X10^3/uL (2.7-7.7); Platelet Count 335 K/mm3 (150-450); RBC Distribution Width CV 13.4 % (11.6-14.6); RBC Distribution Width SD 45.8 fl (35.1-43.9); Red Blood Count 3.41 M/mm3 (4.2-5.4); White Blood Count 6.7 K/mm3 (4.4-11.0)
[2018-01-28 10:33] LABS: POSITIVE COUNT NO; POSITIVE DIFFERENTIAL NO; POSITIVE MORPHOLOGY NO
[2018-01-28 10:52] LABS: Anion Gap 7 (5-15); BUN 30 mg/dL (7-18); BUN/Creat Ratio 19.4 RATIO (10-20); Calcium,Total 8.7 mg/dL (8.5-10.1); Chloride 103 mmol/L (98-107); Creatinine, Serum 1.55 mg/dL (0.55-1.02); EST Glomerular Filtration Rate 37 mL/min (>60); Est Glom Filt Rate - Afr Amer 44 mL/min (>60); Glucose 299 mg/dL (74-106); Potassium 5.9 mmol/L (3.5-5.1); Sodium Level 138 mmol/L (136-145)
[2018-02-03 11:59] VITALS: BMI 18.1
[2018-02-04] VITALS (26 sets, daily range): BP systolic 104–174; BP diastolic 48–71; PULSE 55–68; RESP 12–24; TEMP 36.4–36.8; O2SAT 95–99; BMI 16.6
--- NOTE | 2018-02-04 13:45 | EKG12_ITS ---
Test Reason : POST PCI Blood Pressure : / mmHG Vent. Rate : 062 BPM Atrial Rate : 062 BPM P-R Int : 168 ms QRS Dur : 076 ms QT Int : 432 ms P-R-T Axes : 075 -69 083 degrees QTc Int : 438 ms Sinus rhythm with Premature atrial complexes Left axis deviation Abnormal ECG Confirmed by MODESTO DAIGLE, NICOLA ([id number]), food expeditor HARPAL ELLIS ([id number]) on 02/10/2018 9:25:29 AM Referred By: Yassine White Confirmed By:NICOLA SALVADOR MD
--- NOTE | 2018-02-04 13:46 | CL.I_ITS ---
Patient Name: SANDY ELLIS Study Date: 02/04/2018 Performing: Yassine White MD Ht: 66 inches 168 cm : 1960 Wt: 112.6 lbs 51 kg Age: 57 Gender: female BSA: 1.57 PROCEDURE(S) PERFORMED [id number] W OR WO PTCA, SINGLE CORONARY ARTERY CLINICAL PROFILE AND CO-MORBIDITIES Indications: New Onset Angina <= 2 months Heart Failure: None Stress/Imaging Stress/Image Study Performed: No Angina Classification Anginal Classification w/in 2 Weeks: CCS II CAD Presentations: Unstable angina. Comorbidities/Risk Factors: Hypertension Dyslipidemia Prior PCI Diabetes Mellitus: Diabetes Therapy: Insulin CONCLUSIONS Successful PTCA/MIESHA of the of mid LCX with a 3.0 x 16 Promus Synergy at 10 yasmeen; 80%-->0%, no dissecti on. RECOMMENDATIONS Highly recommend quitting all tobacco products Follow up with primary children's tutor nursery Risk factor modification ASA Indefinitley Plavix for at least 12 months Routine post interventional care Refer for Outpatient Cardiac Rehab Manual sheath removal per protocol Follow up with Dr. Robbins Medical management of LAD. IV fluid hydration post procedure. Cardiac rehab in 2 weeks. DESCRIPTION OF PROCEDURE The patient arrived to the procedure lab. The risks and benefits of the procedure as well as a full d escription of our services here and current unavailability of surgical backup were fully explained to the patient and/or their significant other prior to the catheterization. The Timeout was completed, verifying the correct patient and procedure. The patient's procedural site was prepped and draped in the usual fashion. Local anesthetic was given subcutaneously to right groin region with Lidocaine 2%. Using a modified Seldinger technique, arterial access was obtained via the right femoral artery, a 6 Fr sheath was inserted.. EBU 3.5 Guide catheter was inserted and engaged into the LCA. BMW Guide wire was advanced to the Circ umflex. 2.0X12 EMERGE Balloon catheter was inserted. Balloon catheter was advanced across lesion in t he circumflex, mid. PTCA balloon inflated at 10 atms for 15 secs PTCA balloon inflated at 8 atms for 10 secs PTCA balloon inflated at 8 atms for 20 secs PTCA balloon inflated at 8 atms for 15 secs 3.0X1 6 SYNERGY Drug Eluting stent was inserted Drug Eluting stent was advanced across the lesion in the ci rcumflex, mid. Angiogram performed post stent deployment.. . The arterial sheath was sutured in plac e and capped. INTERVENTION INFORMATION LESION SITE: Circumflex (Mid) Lesion Complexity: Non-High/Non-C, lesion at bifurcation: No, thrombus present: No, lesion length: 16 mm, culprit lesion: Yes Pre Stenosis: 80 % Pre intervention KARY flow: 3 PROCEDURE: Drug Eluting Stent with pre dilatation. Post Stenosis: 0 % Post intervention KARY flow: 3 Lesion Devices: East .014 BMW [place] Straight 190cm Applifiertronic 6 Fr EBU3.5 100cm Guide Catheter Kilo Sci EMERGE MR 2.00x12 BALLOON Kilo Sci Synergy MR MIESHA 3.00x16 COMPLICATIONS No Complications PROCEDURE MEDICATIONS Oxygen: 2 L/min via nasal cannula Heparin 6000 unit(s) IV 02/04/2018 13:15:18 Nitro 200 mcg IC 02/04/2018 13:19:39 Nitro 200 mcg IC 02/04/2018 13:19:39 IV Bolus: .9 NaCl 600 ml total 02/04/2018 13:33:03 SUMMARY OF HEMODYNAMIC DATA Time AIR REST ECG 08:15:49 AO 162/71 (106) SA 13:16:59 Signed By Yassine White MD On 02/04/2018 13:45:56 Yassine White MD
[2018-02-04 14:06] LABS: ACT Activated Clotting Time 241 sec (74-137)
[2018-02-04 14:18] LABS: Hemoglobin 9.2 g/dl (12.0-15.0); Mean Corp Hgb Conc 31.7 g/gl (32-36); Mean Corpuscular Volume 97.6 fL (81-99); Mean Platelet Vol. 9.5 fl (6.2-12.0); Platelet Count 229 K/mm3 (150-450); RBC Distribution Width CV 13.7 % (11.6-14.6); RBC Distribution Width SD 46.3 fl (35.1-43.9); Red Blood Count 2.97 M/mm3 (4.2-5.4); White Blood Count 5.6 K/mm3 (4.4-11.0)
[2018-02-04] MEDS: 0.9% Normal Saline 1,000 ML 150 ML IV (14:18)
[2018-02-04 14:19] LABS: Scan Indicated on CBC? Y/N NO
--- NOTE | 2018-02-04 14:23 | CRPHASE1 ---
Patient Data/Charges Phase II Referral:: [facility] - Pt had previous education done by Suraj Munson 01/15/18 Risk Factors/Lifestyle Family History: Family History (Last Reviewed 01/29/18 @ 09:00 by Qi Dunham) Mother Heart disease COPD (chronic obstructive pulmonary disease) Lupus Daughter Growth disorder Down syndrome Fibromyalgia Grandfather Colon cancer Diabetes Grandmother Heart disease CVA (cerebral vascular accident) Diabetes Pulmonary disease Sister Hypertension Kidney disease
[2018-02-04 14:39] LABS: CPK Total, Creatine Kinase 31 U/L (26-192)
[2018-02-04 14:46] LABS: Bedside Glucose 367 mg/dL (70-110)
[2018-02-04] MEDS: Lisinopril 5 MG Tablet PO (15:06)
[2018-02-04 15:44] LABS: M R Staph aureus DNA By PCR Negative (Negative); Probe Check PASS; Specimen Processing Control PASS
[2018-02-04 16:20] LABS: ACT Activated Clotting Time 147 sec (74-137)
[2018-02-04] MEDS: Nitroglycerin Oint 1 INCH PACKET TRANSDERM. (16:38)
[2018-02-04 17:30] LABS: Bedside Glucose 387 mg/dL (70-110)
[2018-02-04 17:45] LABS: Bedside Glucose 284 mg/dL (70-110)
[2018-02-04] MEDS: Ipratropium 0.5 MG/2.5 ML SOLUTION INHALATION (18:56)
[2018-02-04] MEDS: Escitalopram Oxalate 20 MG Tablet PO (21:09)
[2018-02-04] MEDS: Metoprolol Tartrate 25 MG Tablet PO (21:09)
[2018-02-04] MEDS: Gabapentin 300 MG Capsule PO (21:10)
[2018-02-04] MEDS: Atorvastatin Calcium 20 MG Tablet PO (21:10)
[2018-02-04 21:30] LABS: Hemoglobin 9.5 g/dl (12.0-15.0); Mean Corp Hgb Conc 31.7 g/gl (32-36); Mean Platelet Vol. 9.8 fl (6.2-12.0); Platelet Count 239 K/mm3 (150-450); RBC Distribution Width CV 13.9 % (11.6-14.6); RBC Distribution Width SD 47.2 fl (35.1-43.9); Red Blood Count 3.06 M/mm3 (4.2-5.4); White Blood Count 7.2 K/mm3 (4.4-11.0)
[2018-02-04 21:31] LABS: Scan Indicated on CBC? Y/N NO
[2018-02-04 23:35] LABS: Bedside Glucose 353 mg/dL (70-110)
[2018-02-05] VITALS (17 sets, daily range): BP systolic 96–142; BP diastolic 30–86; PULSE 53–64; RESP 14–21; TEMP 36.5–36.7; O2SAT 96–98
[2018-02-05] MEDS: Nitroglycerin Oint 1 INCH PACKET TRANSDERM. ×2 (00:28→06:42)
[2018-02-05] MEDS: Losartan Potassium 100 MG Tablet PO (00:28)
[2018-02-05 00:51] LABS: Hematocrit 29.6 % (37-47); Hemoglobin 9.3 g/dl (12.0-15.0); Mean Corp Hgb Conc 31.4 g/gl (32-36); Mean Corpuscular Hgb 30.8 pg (27.0-32.0); Mean Platelet Vol. 9.8 fl (6.2-12.0); Platelet Count 251 K/mm3 (150-450); RBC Distribution Width CV 13.8 % (11.6-14.6); RBC Distribution Width SD 47.5 fl (35.1-43.9); Red Blood Count 3.02 M/mm3 (4.2-5.4)
[2018-02-05 00:53] LABS: Scan Indicated on CBC? Y/N NO
[2018-02-05 01:05] LABS: CPK Total, Creatine Kinase 35 U/L (26-192)
[2018-02-05 06:40] LABS: Bedside Glucose 57 mg/dL (70-110)
[2018-02-05 07:01] LABS: Hemoglobin 9.2 g/dl (12.0-15.0); Mean Corp Hgb Conc 31.7 g/gl (32-36); Mean Corpuscular Volume 97.6 fL (81-99); Mean Platelet Vol. 9.5 fl (6.2-12.0); Platelet Count 246 K/mm3 (150-450); RBC Distribution Width CV 13.7 % (11.6-14.6); RBC Distribution Width SD 46.4 fl (35.1-43.9); Red Blood Count 2.97 M/mm3 (4.2-5.4); White Blood Count 8.3 K/mm3 (4.4-11.0)
[2018-02-05 07:04] LABS: Scan Indicated on CBC? Y/N NO
[2018-02-05 07:08] LABS: Anion Gap 8 (5-15); BUN 45 mg/dL (7-18); BUN/Creat Ratio 35.2 RATIO (10-20); Calcium,Total 8.2 mg/dL (8.5-10.1); Chloride 112 mmol/L (98-107); Creatinine, Serum 1.28 mg/dL (0.55-1.02); EST Glomerular Filtration Rate 46 mL/min (>60); Est Glom Filt Rate - Afr Amer 55 mL/min (>60); Estimated Creatinine Clearance 36.15 ml/min; Glucose 67 mg/dL (74-106); Potassium 4.8 mmol/L (3.5-5.1); Sodium Level 144 mmol/L (136-145)
[2018-02-05] MEDS: Ipratropium 0.5 MG/2.5 ML SOLUTION INHALATION (07:08)
[2018-02-05] MEDS: Clopidogrel Bisulfate 75 MG Tablet PO (08:27)
[2018-02-05] MEDS: Isosorbide Mononitrate 30 MG Tablet PO (08:27)
[2018-02-05] MEDS: Aspirin E.C. 81 MG Tablet PO (08:27)
[2018-02-05] MEDS: Metoprolol Tartrate 25 MG Tablet PO (08:28)
[2018-02-05] MEDS: Lisinopril 5 MG Tablet PO (08:29)
--- NOTE | 2018-02-05 08:34 | PCM.DC.CCA ---
Discharge Diet: Low fat/ Low Cholesterol Discharge Activity: Return to Normal Activity, - - Do not life anything greater than 10 lbs for 3 days May shower in (days): 1 Lifting Restrictions: 10 pounds and also avoid any pushing or pulling for 3 days after your test. Call your doctor if your incision/area has: Continuous Slow Oozing, Sudden Increased Bleeding, Increased Pain/ Swelling, Increased Redness, Foul Smelling Discharge, Swelling at the incision site Call your doctor if you observe: Fever of 101 or Higher, Shortness of breath, Chest pain Remove Dressing in (days):: 1 Cleanse incision/area with: Soap & Water Additional Dressing/Incision Instructions:: Keep the dressing (bandage) on until the next morning. You may then shower, but do not take a tub bath for 5 days after your test. It is normal to have some tenderness and discomfort at the puncture site. Sometimes bruising also occurs. However, if pain, numbness, or coldness occurs below the puncture site (in your leg, toes, arms or fingers) call your doctor at once. You may have a small, marble sized knot at the puncture site. This is normal. Do not rub it. It will go away in 4-6 weeks. Bleeding can occur from the area where the puncture was done. Blood may spurt or drip from the site. If blood spurts, apply pressure right away to stop bleeding and call 911. Although rare, bleeding into the tissue (hematoma) can also occur. If this happens, a large, firm area goose egg under the skin will appear. If any of these occur, lie down as flat as you can and have someone apply firm pressure to the cath site with a gauze pad or a clean washcloth for 10-15 minutes. Call 911 or go to the Emergency Department. Additional Instructions: You will need to stay on your plavix for at least one year before it cam be stopped. You will need to stay on ASA After you Office visit we will talk about cardiac rehab. You will need to have blood work done next week, it is non fasting. I would like to check you renal function to make sure it okay from the contrast that was used. Allergies/Adverse Reactions: Allergies No Known Allergies Allergy (Verified 01/29/18 08:57) Medications to take at Discharge Simvastatin 40 mg PO QHS 01/21/15 Escitalopram Oxalate [Lexapro] 20 mg PO QHS 08/19/16 Aspirin E.C. [Ecotrin] 81 mg PO DAILY@0800 #30 tab 01/16/18 Clopidogrel Bisulfate [Plavix] 75 mg PO DAILY #30 tab 01/16/18 Gabapentin [Neurontin] 300 mg PO QHS #30 cap 01/16/18 Isosorbide Mononitrate [Imdur] 30 mg PO DAILY #30 tab 01/16/18 Metoprolol Tartrate [Lopressor (beta darwin)] 25 mg PO BID #60 tab 01/16/18 cholecalciferol (vitamin D3) 1,000 unit capsule 1,000 unit PO QWEEK cap 01/26/18 glucagon (human recombinant) 1 mg injection kit 1 mg IM ONCE 01/26/18 insulin aspart U-100 100 unit/mL subcutaneous solution 10 unit SC TID ml 01/26/18 tiotropium bromide 18 mcg capsule with inhalation device 1 cap INHALATION QDAY 01/26/18 insulin detemir (U-100) 100 unit/mL subcutaneous solution 12 unit SC QHS ml 01/29/18 Albuterol Sulfate [Proventil Hfa] 1 puff INHALATION Q2H PRN PRN 02/03/18 Lisinopril [Zestril] 5 mg PO DAILY 02/04/18 Primary Care Physician: Sin Lujan MD [Primary Care Provider] - Please follow up with your Primary Care Physician in: 2-4 weeks Please Follow Up With: Radha Sandhu PA When: 02/20/2018 0900 Cardiac Rehabilitation Info Cardiac Rehabilitation Program Information: Cardiac Rehabilitation is important for patients like you who are recovering from a heart problem. Cardiac rehabilitation programs are recognized as integral to the continued care of the patient with coronary heart disease. The cardiac rehabilitation program is designed to optimize a patient's physical, psychological, and social functioning. Health nursing care partner work in cardiac rehabilitation programs and assist you with getting the treatments you need to get stronger and healthier - like exercise, healthy eating habits, and medications. Cardiac rehabilitation has been show to help people with heart problems live longer and have better life enjoyment than people who do not go to cardiac rehabilitation. Please contact the Cardiac Rehabilitation Program at [facility] at in two weeks if you have not heard from them.
--- NOTE | 2018-02-05 08:41 | DCINST_ITS ---
Discharge Diet: Low fat/ Low Cholesterol Discharge Activity: Return to Normal Activity, - - Do not life anything greater than 10 lbs for 3 days May shower in (days): 1 Lifting Restrictions: 10 pounds and also avoid any pushing or pulling for 3 days after your test. Call your doctor if your incision/area has: Continuous Slow Oozing, Sudden Increased Bleeding, Increased Pain/ Swelling, Increased Redness, Foul Smelling Discharge, Swelling at the incision site Call your doctor if you observe: Fever of 101 or Higher, Shortness of breath, Chest pain Remove Dressing in (days):: 1 Cleanse incision/area with: Soap & Water Additional Dressing/Incision Instructions:: Keep the dressing (bandage) on until the next morning. You may then shower, but do not take a tub bath for 5 days after your test. It is normal to have some tenderness and discomfort at the puncture site. Sometimes bruising also occurs. However, if pain, numbness, or coldness occurs below the puncture site (in your leg, toes, arms or fingers) call your doctor at once. You may have a small, marble sized knot at the puncture site. This is normal. Do not rub it. It will go away in 4-6 weeks. Bleeding can occur from the area where the puncture was done. Blood may spurt or drip from the site. If blood spurts, apply pressure right away to stop bleeding and call 911. Although rare, bleeding into the tissue (hematoma) can also occur. If this happens, a large, firm area goose egg under the skin will appear. If any of these occur, lie down as flat as you can and have someone apply firm pressure to the cath site with a gauze pad or a clean washcloth for 10-15 minutes. Call 911 or go to the Emergency Department. Additional Instructions: You will need to stay on your plavix for at least one year before it cam be stopped. You will need to stay on ASA After you Office visit we will talk about cardiac rehab. You will need to have blood work done next week, it is non fasting. I would like to check you renal function to make sure it okay from the contrast that was used. Allergies/Adverse Reactions: Allergies No Known Allergies Allergy (Verified 01/29/18 08:57) Medications to take at Discharge Simvastatin 40 mg PO QHS 01/21/15 Escitalopram Oxalate [Lexapro] 20 mg PO QHS 08/19/16 Aspirin E.C. [Ecotrin] 81 mg PO DAILY@0800 #30 tab 01/16/18 Clopidogrel Bisulfate [Plavix] 75 mg PO DAILY #30 tab 01/16/18 Gabapentin [Neurontin] 300 mg PO QHS #30 cap 01/16/18 Isosorbide Mononitrate [Imdur] 30 mg PO DAILY #30 tab 01/16/18 Metoprolol Tartrate [Lopressor (beta darwin)] 25 mg PO BID #60 tab 01/16/18 cholecalciferol (vitamin D3) 1,000 unit capsule 1,000 unit PO QWEEK cap glucagon (human recombinant) 1 mg injection kit 1 mg IM ONCE 01/26/18 insulin aspart U-100 100 unit/mL subcutaneous solution 10 unit SC TID ml 01/26 tiotropium bromide 18 mcg capsule with inhalation device 1 cap INHALATION QDAY 01/26/18 insulin detemir (U-100) 100 unit/mL subcutaneous solution 12 unit SC QHS ml Albuterol Sulfate [Proventil Hfa] 1 puff INHALATION Q2H PRN PRN 02/03/18 Lisinopril [Zestril] 5 mg PO DAILY 02/04/18 Primary Care Physician: Sin Lujan MD [Primary Care Provider] - Please follow up with your Primary Care Physician in: 2-4 weeks Please Follow Up With: Radha Sandhu PA When: 02/20/2018 0900 Cardiac Rehabilitation Info Cardiac Rehabilitation Program Information: Cardiac Rehabilitation is important for patients like you who are recovering from a heart problem. Cardiac rehabilitation programs are recognized as integral to the continued care of the patient with coronary heart disease. The cardiac rehabilitation program is designed to optimize a patient's physical, psychological, and social functioning. Health mall plant caretaker work in cardiac rehabilitation programs and assist you with getting the treatments you need to get stronger and healthier - like exercise, healthy eating habits, and medications. Cardiac rehabilitation has been show to help people with heart problems live longer and have better life enjoyment than people who do not go to cardiac rehabilitation. Please contact the Cardiac Rehabilitation Program at [facility] at in two weeks if you have not heard from them.
[2018-02-05 10:11] LABS: Bedside Glucose 142 mg/dL (70-110)
--- NOTE | 2018-02-05 13:15 | PCM.PN.CARD ---
Subjectve: Patient did very well overnight, no 24 hour events. Telemetry negative. Right groin is clean/dry/intact, no thrills, bruits. CKs negative, hemoglobin and creatinine within nominal limits. Objective: Vital Signs Temp Pulse Resp BP Pulse Ox 97.8 F 61 21 H 106/41 L 97 02/05/18 09:00 02/05/18 10:00 02/05/18 10:00 02/05/18 10:00 02/05/18 10:00 Oxygen Delivery Method Room Air Weight: 105 lb 6.095 oz Body Mass Index (BMI) 16.6 Finger Stick Blood Glucose 249 Intake and Output for Last 24 Hours 02/03/18 02/04/18 02/05/18 23:59 23:59 23:59 Intake Total 819 / 819 314 / 314 Output Total 700 / 700 Balance 819 / 819 -386 / -386 General: Awake, Alert, Oriented x 3 HEENT: PERRL, EOMI, Sclera Non Icteric Neck: Supple, Good ROM, No Lymph Node Enlargement Lungs: Clear to auscultation Cardiovascular: Regular Rhythm, Normal S1, Normal S2, No Murmurs, No Rubs, No Gallops Vascular: No Carotid Bruits, Normal Femoral Pulses, Normal Radial Pulses, Normal Dorsalis Pedal Pulse, Normal Posterior Tibial Pulses Abdomen: Bowel Sounds Present, Soft, Non Tender, No HSM, No Organomegaly Extremities: No Cyanosis, No Clubbing, No edema Neurological: No Focal Motor or Sensory Deficit 02/04/18 14:05: WBC 5.6, RBC 2.97 L, Hgb 9.2 L, Hct 29.0 L, MCV 97.6, MCH 31.0, MCHC 31.7 L, RDW 13.7, RDW Differential 46.3 H, Plt Count 229, MPV 9.5 02/04/18 21:20: WBC 7.2, RBC 3.06 L, Hgb 9.5 L, Hct 30.0 L, MCV 98.0, MCH 31.0, MCHC 31.7 L, RDW 13.9, RDW Differential 47.2 H, Plt Count 239, MPV 9.8 02/05/18 00:45: WBC 9.0, RBC 3.02 L, Hgb 9.3 L, Hct 29.6 L, MCV 98.0, MCH 30.8, MCHC 31.4 L, RDW 13.8, RDW Differential 47.5 H, Plt Count 251, MPV 9.8 02/05/18 07:00: Sodium 144, Potassium 4.8, Chloride 112 H, Carbon Dioxide 24.0, Anion Gap 8, BUN 45 H, Creatinine 1.28 H, Est GFR (MDRD) Af Amer 55 L, Est GFR (MDRD) Non-Af 46 L, BUN/Creatinine Ratio 35.2 H, Glucose 67 L, Calcium 8.2 L 02/05/18 07:00: WBC 8.3, RBC 2.97 L, Hgb 9.2 L, Hct 29.0 L, MCV 97.6, MCH 31.0, MCHC 31.7 L, RDW 13.7, RDW Differential 46.4 H, Plt Count 246, MPV 9.5 Rhythm: EKG: ECHO: Stress Test: Cardiac Cath: PCI: CT Surgery: Holter monitor: EPS: PPM: CXR: Chest CT Scan: Medical Necessity - Tobacco Use Smoking Status: Current every day smoker Assessment/Plan 1. Coronary artery disease: Status post angioplasty and drug-eluting stent to the left circumflex with an excellent result. Patient will continue on aspirin and Plavix going forward. Her right groin is clean/dry/intact. We will make arrangements for her to undergo cardiac rehab in 2 weeks time. 2. Hyperlipidemia: Continue statin based medications. We will repeat her lipid profile in 6 weeks time. 3. Patient to be discharged home and follow-up with me going forward. Code Visit Inpatient E&M: [id number] [facility] Hosp L2
--- NOTE | 2018-02-05 13:45 | EKG12_ITS ---
Test Reason : AM EKG Blood Pressure : / mmHG Vent. Rate : 058 BPM Atrial Rate : 058 BPM P-R Int : 162 ms QRS Dur : 076 ms QT Int : 424 ms P-R-T Axes : 074 -59 080 degrees QTc Int : 416 ms Sinus bradycardia Left axis deviation Septal infarct , age undetermined Abnormal ECG When compared with ECG of 04-FEB-2018 14:04, MANUAL COMPARISON REQUIRED, DATA IS UNCONFIRMED Confirmed by MODESTO DAIGLE, NICOLA ([id number]), commissioning editor HARPAL ELLIS ([id number] on 02/10/2018 9:23:55 AM Referred By: Yassine White Confirmed By:NICOLA SALVADOR MD
== END 2018-02-05 11:10 | disposition home or self-care (01) ==
LOC: CLSP 07:48 → ICU 13:46
PROVIDERS: Internal Medicine Cardiovascular Disease; Family Provider Family Medicine; PCP Family Medicine; Visit Provider Internal Medicine Cardiovascular Disease
DX: I21.4 Non-ST elevation (NSTEMI) myocardial infarction (principal); I25.110 Atherosclerotic heart disease of native coronary artery with unstable angina pectoris; I12.9 Hypertensive chronic kidney disease with stage 1 through stage 4 chronic kidney disease, or unspecified chronic kidney disease; E10.22 Type 1 diabetes mellitus with diabetic chronic kidney disease; N18.3 Chronic kidney disease, stage 3 (moderate); Z79.4 Long term (current) use of insulin; E78.5 Hyperlipidemia, unspecified; J44.9 Chronic obstructive pulmonary disease, unspecified; Z79.82 Long term (current) use of aspirin; Z79.01 Long term (current) use of anticoagulants; Z79.899 Other long term (current) drug therapy; Z72.0 Tobacco use
CPT/HCPCS: 36415; 80048; 82550; 82962; 85025; 85027; 85347; 87641; 92928; 93005; 94640; J7030; C1725; C1769; C1874; C1887; C9600; Q9967

== ENCOUNTER 2018-02-14 19:56 | Emergency (ER) | payer OTHER, SELFPAY ==
[2018-02-14 19:59] VITALS: BP 86/48; PULSE 63; RESP 16; TEMP 36.7; O2SAT 96; BMI 16.7
[2018-02-14 20:14] VITALS: BP 105/56; PULSE 58; RESP 16; O2SAT 99
--- NOTE | 2018-02-14 20:44 | EKG12_ITS ---
Test Reason : CP Blood Pressure : / mmHG Vent. Rate : 056 BPM Atrial Rate : 056 BPM P-R Int : 162 ms QRS Dur : 074 ms QT Int : 460 ms P-R-T Axes : 063 -60 078 degrees QTc Int : 443 ms Sinus bradycardia Left axis deviation Septal infarct , age undetermined Abnormal ECG Confirmed by MODESTO DAIGLE, NICOLA ([id number]), industrial editor HARPAL ELLIS ([id number]) on 02/17/2018 2:30:55 PM Referred By: LUKE Confirmed By:NICOLA SALVADOR MD
[2018-02-14] MEDS: 0.9% Normal Saline 1,000 ML 1000 ML IV (20:45)
--- NOTE | 2018-02-14 20:48 | ED.DCSUM_ITS ---
- ER Visit Summary Date of Service: 02/14/18 Chief Complaint: Lightheaded History of Present Illness: The patient is a 57 F lightheaded symptoms at approximately 6 PM this evening. No chest pains or shortness of breath. Here with spouse, states she actually took her next days morning medications around 1230. She woke up late took her morning medicines at noon, forgotten and then taken the extra doses of medicines. Reviewed it was aspirin, Plavix, 30 mg of Imdur, 5 mg of lisinopril. He has been monitoring her blood pressure around her symptoms around 6 PM blood pressure began to decline, blood pressure at 630 at home was 70/43. No nausea or vomiting. Physical Examination: General: Alert and oriented ?3, no acute distress HEENT: Normocephalic, atraumatic. Moist mucosa membranes Neck: supple, nontender. Cardiovascular: Regular rate and rhythm, no murmurs Respiratory: Normal breath sounds, symmetric, no distress Abdomen: Soft, nontender, nondistended Extremities: Nontender, no edema, pulses intact ?4 Neuro: no focal neurological deficits. Test Results: Emergency Department Course and Treatment: Triage blood pressures 86/48. IV fluids were started by nursing. Half lab reviewed of Imdur was 6 hours, lisinopril was 12 hours. Is now 8 hours post her ingestion of medications. EKG sinus rate of 56, no ST or T-wave changes. QTc 443. Isolated T-wave inversion in aVL. Nonspecific. Patient monitored for a couple hours, this is well past the half-life of her Imdur. Blood pressure recheck 120/66. She was ambulated in the department with no return of symptoms. She will be discharged with outpatient follow-up. Treatment Plan: [] Disposition: Discharge Impression: 1. Near syncope 2. Accidental ingestion of medications This note was generated with [employer] dictation software. It may contain incorrect words, spelling, and punctuation that were not noted in review of the chart prior to signing ED Disposition - Plan for ED Patient: Disposition: Home or Assisted Living Chief Complaint: Hypotension Diagnosis: Near syncope, Ingestion, drug, inadvertent or accidental Referrals: Sin Lujan MD [Primary Care Provider] - 5-7 Days Additional Instructions: Accidental ingestion of medications. Blood pressure now stable. Resume normal doses of medications in the morning.
[2018-02-14 21:05] VITALS: BP 112/57; PULSE 57; RESP 20; O2SAT 99
[2018-02-14 22:01] VITALS: BP 121/66; PULSE 59; RESP 20; O2SAT 97
[2018-02-14 23:05] VITALS: BP 120/63; PULSE 65; RESP 16; O2SAT 96
[2018-02-14 23:15] VITALS: BP 120/63; PULSE 65; RESP 16; O2SAT 96
== END 2018-02-14 23:16 | disposition home or self-care (01) ==
PROVIDERS: Emergency Provider Emergency Medicine; Family Provider Family Medicine; PCP Family Medicine
DX: T39.011A Poisoning by aspirin, accidental (unintentional), initial encounter (principal); T45.521A Poisoning by antithrombotic drugs, accidental (unintentional), initial encounter; T46.3X1A Poisoning by coronary vasodilators, accidental (unintentional), initial encounter; T46.4X1A Poisoning by angiotensin-converting-enzyme inhibitors, accidental (unintentional), initial encounter; R55 Syncope and collapse; Y92.9 Unspecified place or not applicable; I25.10 Atherosclerotic heart disease of native coronary artery without angina pectoris; I25.2 Old myocardial infarction; I12.9 Hypertensive chronic kidney disease with stage 1 through stage 4 chronic kidney disease, or unspecified chronic kidney disease; N18.3 Chronic kidney disease, stage 3 (moderate); J44.9 Chronic obstructive pulmonary disease, unspecified; E78.00 Pure hypercholesterolemia, unspecified; Z72.0 Tobacco use
CPT/HCPCS: 93005; 96360; 99284; J7030

== ENCOUNTER → 2018-02-18 15:16 | Outpatient (CLI) | payer OTHER, SELFPAY ==
[2018-02-18 16:28] LABS: AST(SGOT) 23 U/L (15-37); Alanine Aminotransfer ALT/SGPT 41 U/L (13-56); Albumin, Serum 3.2 g/dL (3.2-5.0); Alkaline Phosphatase 70 U/L (45-117); Anion Gap 8 (5-15); BUN 27 mg/dL (7-18); BUN/Creat Ratio 20.9 RATIO (10-20); Calcium,Total 8.4 mg/dL (8.5-10.1); Chloride 107 mmol/L (98-107); Cholesterol 129 mg/dL (200); Creatinine, Serum 1.29 mg/dL (0.55-1.02); EST Glomerular Filtration Rate 45 mL/min (>60); Est Glom Filt Rate - Afr Amer 55 mL/min (>60); Globulin 3.3 g/dL (2.2-4.2); Glucose 112 mg/dL (74-106); High Density Lipoprotein 62 mg/dL; Potassium 4.9 mmol/L (3.5-5.1); Protein, Total 6.5 g/dL (6.4-8.2); Sodium Level 141 mmol/L (136-145); Total Bilirubin < 0.10 mg/dL (0.20-1.00); Triglycerides 116 mg/dL; Very Low Density Lipoprotein 23 mg/dL (5-40)
[2018-02-18 16:59] LABS: Microalbumin:Creatinine Ratio 2031.5 mg/g CRE (<30 mg/g CRE)
== END ==
PROVIDERS: Family Provider Family Medicine; PCP Family Medicine; Visit Provider Internal Medicine Cardiovascular Disease
DX: E10.9 Type 1 diabetes mellitus without complications (principal); E78.5 Hyperlipidemia, unspecified
CPT/HCPCS: 36415; 80053; 80061; 82043; 82570

== ENCOUNTER → 2018-02-20 09:56 | Outpatient (CLI) | payer OTHER, SELFPAY ==
[2018-02-20 12:31] LABS: Absolute Lymphocyte Count 2.93 X10^3/ul (0.83-4.51); Absolute Neutrophil Count 3.5 X10^3/uL (2.0-7.7); Basophil# 0.05 X10^3/uL; Basophil% 0.6 % (0-1); Eosinophil# 0.87 X10^3/uL; Hematocrit 31.1 % (37-47); Hemoglobin 9.8 g/dl (12.0-15.0); Lymphocyte # 2.93 X10^3/ul (4.0); Lymphocyte % 36.9 % (19-41); Mean Corp Hgb Conc 31.5 g/gl (32-36); Mean Corpuscular Hgb 30.9 pg (27.0-32.0); Mean Corpuscular Volume 98.1 fL (81-99); Mean Platelet Vol. 10.3 fl (6.2-12.0); Monocyte# 0.56 X10^3/uL; Monocyte% 7.1 % (0-10); Neutrophil # 3.51 X10^3/uL (2.7-7.7); Neutrophil % 44.3 % (47-70); Platelet Count 233 K/mm3 (150-450); RBC Distribution Width CV 13.5 % (11.6-14.6); RBC Distribution Width SD 46.4 fl (35.1-43.9); Red Blood Count 3.17 M/mm3 (4.2-5.4); White Blood Count 7.9 K/mm3 (4.4-11.0)
[2018-02-20 12:32] LABS: POSITIVE COUNT NO; POSITIVE DIFFERENTIAL NO; POSITIVE MORPHOLOGY NO
== END ==
PROVIDERS: Visit Provider Physician Assistant Medical
DX: I25.10 Atherosclerotic heart disease of native coronary artery without angina pectoris (principal); I10 Essential (primary) hypertension; D64.9 Anemia, unspecified
CPT/HCPCS: 36415; 85025

== ENCOUNTER → 2018-03-09 12:50 | Outpatient (CLI) | payer OTHER, SELFPAY ==
--- NOTE | 2018-03-09 13:00 | PCM.CR.HP2 ---
CR - History & Physical - General Arrival date:: 03/09/18 Arrival time:: 13:00 Date of Referral:: 02/19/18 Date of CR Evaluation:: 03/09/18 Referring Physician: Dr. Salomon Robbins Primary Diagnosis: Z95.5 coronary stent 01/15/2018 - History of Present Cardiac Event Onset Date: Enter Onset Date of cardiac illnesses in Comment field below PTCA or coronary stenting:: Yes - Medications Home Medications: Ambulatory Orders Medication Instructions Recorded Simvastatin 40 mg PO QHS 01/21/15 Escitalopram Oxalate [Lexapro] 20 mg PO QHS 08/19/16 Aspirin E.C. [Ecotrin] 81 mg PO DAILY@0800 #30 tab 01/16/18 Gabapentin [Neurontin] 300 mg PO QHS #30 cap 01/16/18 Metoprolol Tartrate [Lopressor 25 mg PO BID #60 tab 01/16/18 (beta darwin)] cholecalciferol (vitamin D3) 1,000 1,000 unit PO QWEEK cap 01/26/18 unit capsule glucagon (human recombinant) 1 mg 1 mg IM ONCE 01/26/18 injection kit insulin aspart U-100 100 unit/mL 12 unit SC TID ml 01/26/18 subcutaneous solution tiotropium bromide 18 mcg capsule 1 cap INHALATION QDAY 01/26/18 with inhalation device insulin detemir (U-100) 100 12 unit SC QHS ml 01/29/18 unit/mL subcutaneous solution Albuterol Sulfate [Proventil Hfa] 1 puff INHALATION Q2H PRN PRN 02/03/18 Lisinopril [Zestril] 5 mg PO DAILY 02/04/18 clopidogrel 75 mg tablet 75 mg PO DAILY #90 tab 02/05/18 ondansetron HCl 8 mg tablet 8 mg PO .PRN tab 02/17/18 nitroglycerin 0.4 mg sublingual 0.4 mg SUBLINGUAL Q5-15M PRN #25 02/20/18 tablet tab - Allergies Allergies/Adverse Reactions: Allergies No Known Allergies Allergy (Verified 02/20/18 09:19) - Sleep Disorder Evaluation Hx of Sleep Apnea: No Do you snore loudly (louder than talking or can be heard through closed doors)?: No Do you often feel tired/ fatigued/ sleepy during daytime?: No Has anyone observed you stop breathing during sleep?: No History of Hypertension (for STOP score): Yes STOP Results: Negative Advanced Directives - Advanced Directives Power of Shoe Cutter: No Living Will: No Advance Directives Information Provided: No Advance Directives on File: No DNR Order?:: No - MOLST See MOLST form: No Past Medical History - Past Medical Illness Medical History: Past Medical History (Last Updated 02/20/18 @ 11:47 by BENTON Gardiner) Hypertension (Chronic) I10 Atherosclerosis of coronary artery of resighini heart without angina pectoris (Chronic) I25.10 PTCA/MIESHA of the of mid RCA with a 2.5 x 28 Promus Synergy 01/15/2018, Stent to Circumflex 02/2018 NSTEMI (non-ST elevated myocardial infarction) (Resolved) I21.4 Tobacco use (Chronic) Z72.0 Is working on quitting. Reports she is smoking less. Hyperlipidemia (Chronic) E78.5 Continues on satin. Will recheck labs COPD (chronic obstructive pulmonary disease) (Chronic) J44.9 CKD (chronic kidney disease) stage 3, GFR 30-59 ml/min (Chronic) DM type 1 (diabetes mellitus, type 1) (Chronic) Dx : 1999 Last exacerbation : DKA : 01/18 Hypoglycemic episode : never ER visit : 01/18 Anxiety F41.9 Depression F32.9 - Past Surgical History Surgical History: Past Surgical History (Last Updated 02/20/18 @ 11:47 by BENTON Gardiner) S/P PTCA (percutaneous transluminal coronary angioplasty) (Chronic) Z98.61 stent february 04, 2018 History of coronary artery stent placement (Chronic) Onset Date: ~01/15/18 Z95.5 PTCA/MIESHA of the of mid RCA with a 2.5 x 28 Promus Synergy 01/15/2018, PTCA MIESHA to Circumflex 02/04/2018 H/O: Z98.891 H/O: hysterectomy Z90.710 Hx of appendectomy Z90.49 Surgical History: appendectomy, hysterectomy, - - . - Family History Summary Family History: Family History (Last Reviewed 02/20/18 @ 09:22 by Amaris Boone) Mother Heart disease COPD (chronic obstructive pulmonary disease) Lupus Daughter Growth disorder Down syndrome Fibromyalgia Grandfather Colon cancer Diabetes Grandmother Heart disease CVA (cerebral vascular accident) Diabetes Pulmonary disease Sister Hypertension Kidney disease Social History - Smoking History Smoking Status: Current every day smoker Years Smokin Packs Smoked per Day: 0.5 Hx Tobacco Use: Yes Hx Smoking Exposure: Yes - Alcohol Use Alcohol Usage: No - Substance Abuse Hx Substance Use: No - Occupation Occupation (List type of work in comments):: Employed Hours worked per day:: 8 Returned to work on:: 02/16/18 - Hobbies, Recreation, Social Activities Recreational Activities: I am able to engage in all my recreational activities Social Environment - Status Marital Status: - Current Living Arrangements Living Environment:: Family - Children How many children do you have?: 2 Do any of your children live nearby?: Yes - Safety Do you feel safe in your surroundings?: Yes - Assistance Do you need any assistance at home?: none Review of Systems - Review of Systems Hints: Right click = Denies (Slash). Left click = Reports ([place]) Review of Present Symptoms: Reports: Dizziness/Lightheadedness, Fatigue, Appetite - Normal - does not eat all meals, Sleep - Normal. Denies: Shortness of Breath at Rest, Shortness of Breath with Exertion, PVD, Operative Discomfort, Angina, Wound Healing, Heart Arrhythmia/Irregularities, Appetite - Special Diet, Sexual Changes - Pain Is Patient Pain Free?: Yes Risk Factor Assessment - Chief Complaint Chief Complaint: coronary stenting, NSTEMI - Vital Signs Pulse Ox: 98 Blood Pressure: 130/60 - Pulse Pulse Rate: 60 Pulse Rhythm: Regular - Hypertension How long have you been treated?: 2 month Blood Pressure Sitting - Left Arm: 130/60 - Stress Stress: Long-standing, Work-related - Diabetes Diabetic History: Type I Nutrition Referral for Diabetes: No - Obesity Height: 1.68 m Weight:: 47.627 kg Weight in Pounds: 105.0 lbs Weight Source: Acute Hospital Body Mass Index (BMI): 16.9 Nutritional Referral for Obesity: No - Physical Inactivity Physical Inactivity: None - Risk Stratification Risk Guidelines: Lowest Risk: Risk Factor for Obesity, Moderate Risk: Risk Factor for Sedentary Lifestyle, Highest Risk: Risk Factor for Smoking, Risk Factor for Dyslipidemia, Risk Factor for Diabetes, Risk Factor for Hypertension, Risk Factor for Depression - For Smoking Smoking Risk Guidelines: Smoking Low Risk: None or quit greater than 6 months ago. Smoking Moderate Risk: Smoker or quit 6 months or less ago. Smoking High Risk: Smoker - For Dyslipidemia Dyslipidemia Risk Guidelines: Low Risk: Moderate Risk: High Risk: 15-25% fat 25.1-29% fat >/= 30% fat. <7% sat fat 7-9% sat fat >9% sat fat. <150 mg chol 150-299 mg chol >/= 300 mg chol. LDL <100 LDL 100-129 LDL >/= 130. Chol/HDL ratio <5.0 Chol/HDL ratio 5.0-6.0 Chol/HDL ratio >6.0. Triglycerides <100 Triglycerides 100-149 Triglycerides >/= 150 - For Diabetes Mellitus Diabetes Risk Guidelines: Diabetes Low Risk: HgA1c <6.5% and/or FBG <120. Diabetes Moderate Risk: HgA1c 6.6-7.9% and/or FBG 120-180. Diabetes High Risk: HgA1c >/= 8% and/or FBG >180 - For Obesity/Overweight Obesity/Overweight Risk Guidelines: Obesity Low Risk: BMI <25.0. Obesity Moderate Risk: BMI 25-29.9. Obesity High Risk: BMI >/= 30.0 - For Hypertension Hypertension Risk Guidelines: Hypertension Low Risk: Systolic <120 and Diastolic <80. Hypertension Moderate Risk: Systolic 120-139 and Diastolic 80-89. Hypertension High Risk: Systolic >/= 140 and Diastolic >/= 90 - For Sedentary Lifestyle Sedentary Lifestyle Risk Guidelines: Sedentary Lifestyle Low Risk: >/= 1,500 kcal/week. Sedentary Lifestyle Moderate Risk: 700-1,499 kcal/week. Sedentary Lifestyle High Risk: < 700 kcal/week - For Depression Depression Risk Guidelines: Depression Low Risk: Not clinically depressed. Depression Moderate Risk: Mildly depressed. Depression High Risk: Clinically depressed - Family History Family History: Family History (Last Reviewed 02/20/18 @ 09:22 by Amaris Boone) Mother Heart disease COPD (chronic obstructive pulmonary disease) Lupus Daughter Growth disorder Down syndrome Fibromyalgia Grandfather Colon cancer Diabetes Grandmother Heart disease CVA (cerebral vascular accident) Diabetes Pulmonary disease Sister Hypertension Kidney disease Motivation - Motivation to Participate On a scale of 1 to 10, how prepared are you to commit to attending program?: 8 What do you see as barriers to successfully being able to complete the program?: self What do you see as the benefits of succesfully completing the program? In other words, what do you hope to get out of participating in the program?: stop smoking, more energy Are there issues you are dealing with that will interfere with completing the program?: none Do you have a spouse or signficant other, family or friends who will help support you to complete the program?: yes
--- NOTE | 2018-03-09 13:10 | CR.HP_ITS ---
CR - History & Physical - General Arrival date:: 03/09/18 Arrival time:: 13:00 Date of Referral:: 02/19/18 Date of CR Evaluation:: 03/09/18 Referring Physician: Dr. Salomon Robbins Primary Diagnosis: Z95.5 coronary stent 01/15/2018 - History of Present Cardiac Event Onset Date: Enter Onset Date of cardiac illnesses in Comment field below PTCA or coronary stenting:: Yes - Medications Home Medications: Ambulatory Orders Medication Instructions Recorded Simvastatin 40 mg PO QHS 01/21/15 Escitalopram Oxalate [Lexapro] 20 mg PO QHS 08/19/16 Aspirin E.C. [Ecotrin] 81 mg PO DAILY@0800 #30 tab 01/16/18 Gabapentin [Neurontin] 300 mg PO QHS #30 cap 01/16/18 Metoprolol Tartrate [Lopressor 25 mg PO BID #60 tab 01/16/18 (beta darwin)] cholecalciferol (vitamin D3) 1,000 1,000 unit PO QWEEK cap 01/26/18 unit capsule glucagon (human recombinant) 1 mg 1 mg IM ONCE 01/26/18 injection kit insulin aspart U-100 100 unit/mL 12 unit SC TID ml 01/26/18 subcutaneous solution tiotropium bromide 18 mcg capsule 1 cap INHALATION QDAY 01/26/18 with inhalation device insulin detemir (U-100) 100 12 unit SC QHS ml 01/29/18 unit/mL subcutaneous solution Albuterol Sulfate [Proventil Hfa] 1 puff INHALATION Q2H PRN PRN 02/03/18 Lisinopril [Zestril] 5 mg PO DAILY 02/04/18 clopidogrel 75 mg tablet 75 mg PO DAILY #90 tab 02/05/18 ondansetron HCl 8 mg tablet 8 mg PO .PRN tab 02/17/18 nitroglycerin 0.4 mg sublingual 0.4 mg SUBLINGUAL Q5-15M PRN #25 02/20/18 tablet tab - Allergies Allergies/Adverse Reactions: Allergies No Known Allergies Allergy (Verified 02/20/18 09:19) - Sleep Disorder Evaluation Hx of Sleep Apnea: No Do you snore loudly (louder than talking or can be heard through closed doors)? : No Do you often feel tired/ fatigued/ sleepy during daytime?: No Has anyone observed you stop breathing during sleep?: No History of Hypertension (for STOP score): Yes STOP Results: Negative Advanced Directives - Advanced Directives Power of Shellfish Grower: No Living Will: No Advance Directives Information Provided: No Advance Directives on File: No DNR Order?:: No - MOLST See MOLST form: No Past Medical History - Past Medical Illness Medical History: Past Medical History (Last Updated 02/20/18 @ 11:47 by BENTON Gardiner) Hypertension (Chronic) I10 Atherosclerosis of coronary artery of [place] heart without angina pectoris ( Chronic) I25.10 PTCA/MIESHA of the of mid RCA with a 2.5 x 28 Promus Synergy 01/15/2018, Stent to Circumflex 02/2018 NSTEMI (non-ST elevated myocardial infarction) (Resolved) I21.4 Tobacco use (Chronic) Z72.0 Is working on quitting. Reports she is smoking less. Hyperlipidemia (Chronic) E78.5 Continues on satin. Will recheck labs COPD (chronic obstructive pulmonary disease) (Chronic) J44.9 CKD (chronic kidney disease) stage 3, GFR 30-59 ml/min (Chronic) DM type 1 (diabetes mellitus, type 1) (Chronic) Dx : 1999 Last exacerbation : DKA : 01/18 Hypoglycemic episode : never ER visit : 01/18 Anxiety F41.9 Depression F32.9 - Past Surgical History Surgical History: Past Surgical History (Last Updated 02/20/18 @ 11:47 by BENTON Gardiner ) S/P PTCA (percutaneous transluminal coronary angioplasty) (Chronic) Z98.61 stent february 04, 2018 History of coronary artery stent placement (Chronic) Onset Date: ~01/15/18 Z95.5 PTCA/MIESHA of the of mid RCA with a 2.5 x 28 Promus Synergy 01/15/2018, PTCA MIESHA to Circumflex 02/04/2018 H/O: Z98.891 H/O: hysterectomy Z90.710 Hx of appendectomy Z90.49 Surgical History: appendectomy, hysterectomy, - - . - Family History Summary Family History: Family History (Last Reviewed 02/20/18 @ 09:22 by Amaris Boone) Mother Heart disease COPD (chronic obstructive pulmonary disease) Lupus Daughter Growth disorder Down syndrome Fibromyalgia Grandfather Colon cancer Diabetes Grandmother Heart disease CVA (cerebral vascular accident) Diabetes Pulmonary disease Sister Hypertension Kidney disease Social History - Smoking History Smoking Status: Current every day smoker Years Smokin Packs Smoked per Day: 0.5 Hx Tobacco Use: Yes Hx Smoking Exposure: Yes - Alcohol Use Alcohol Usage: No - Substance Abuse Hx Substance Use: No - Occupation Occupation (List type of work in comments):: Employed Hours worked per day:: 8 Returned to work on:: 02/16/18 - Hobbies, Recreation, Social Activities Recreational Activities: I am able to engage in all my recreational activities Social Environment - Status Marital Status: - Current Living Arrangements Living Environment:: Family - Children How many children do you have?: 2 Do any of your children live nearby?: Yes - Safety Do you feel safe in your surroundings?: Yes - Assistance Do you need any assistance at home?: none Review of Systems - Review of Systems Hints: Right click = Denies (Slash). Left click = Reports (Habematolel) Review of Present Symptoms: Reports: Dizziness/Lightheadedness, Fatigue, Appetite - Normal - does not eat all meals, Sleep - Normal. Denies: Shortness of Breath at Rest, Shortness of Breath with Exertion, PVD, Operative Discomfort , Angina, Wound Healing, Heart Arrhythmia/Irregularities, Appetite - Special Diet, Sexual Changes - Pain Is Patient Pain Free?: Yes Risk Factor Assessment - Chief Complaint Chief Complaint: coronary stenting, NSTEMI - Vital Signs Pulse Ox: 98 Blood Pressure: 130/60 - Pulse Pulse Rate: 60 Pulse Rhythm: Regular - Hypertension How long have you been treated?: 2 month Blood Pressure Sitting - Left Arm: 130/60 - Stress Stress: Long-standing, Work-related - Diabetes Diabetic History: Type I Nutrition Referral for Diabetes: No - Obesity Height: 1.68 m Weight:: 47.627 kg Weight in Pounds: 105.0 lbs Weight Source: Acute Hospital Body Mass Index (BMI): 16.9 Nutritional Referral for Obesity: No - Physical Inactivity Physical Inactivity: None - Risk Stratification Risk Guidelines: Lowest Risk: Risk Factor for Obesity, Moderate Risk: Risk Factor for Sedentary Lifestyle, Highest Risk: Risk Factor for Smoking, Risk Factor for Dyslipidemia, Risk Factor for Diabetes, Risk Factor for Hypertension , Risk Factor for Depression - For Smoking Smoking Risk Guidelines: Smoking Low Risk: None or quit greater than 6 months ago. Smoking Moderate Risk: Smoker or quit 6 months or less ago. Smoking High Risk: Smoker - For Dyslipidemia Dyslipidemia Risk Guidelines: Low Risk: Moderate Risk: High Risk: 15-25% fat 25.1-29% fat >/= 30% fat. <7% sat fat 7-9% sat fat >9% sat fat. <150 mg chol 150-299 mg chol >/= 300 mg chol. LDL <100 LDL 100-129 LDL >/= 130. Chol/HDL ratio <5.0 Chol/HDL ratio 5.0-6.0 Chol/HDL ratio >6.0. Triglycerides <100 Triglycerides 100-149 Triglycerides >/= 150 - For Diabetes Mellitus Diabetes Risk Guidelines: Diabetes Low Risk: HgA1c <6.5% and/or FBG <120. Diabetes Moderate Risk: HgA1c 6.6-7.9% and/or FBG 120-180. Diabetes High Risk: HgA1c >/= 8% and/or FBG >180 - For Obesity/Overweight Obesity/Overweight Risk Guidelines: Obesity Low Risk: BMI <25.0. Obesity Moderate Risk: BMI 25-29.9. Obesity High Risk: BMI >/= 30.0 - For Hypertension Hypertension Risk Guidelines: Hypertension Low Risk: Systolic <120 and Diastolic <80. Hypertension Moderate Risk: Systolic 120-139 and Diastolic 80-89. Hypertension High Risk: Systolic >/= 140 and Diastolic >/= 90 - For Sedentary Lifestyle Sedentary Lifestyle Risk Guidelines: Sedentary Lifestyle Low Risk: >/= 1 ,500 kcal/week. Sedentary Lifestyle Moderate Risk: 700-1,499 kcal/week. Sedentary Lifestyle High Risk: < 700 kcal/week - For Depression Depression Risk Guidelines: Depression Low Risk: Not clinically depressed. Depression Moderate Risk: Mildly depressed. Depression High Risk: Clinically depressed - Family History Family History: Family History (Last Reviewed 02/20/18 @ 09:22 by Amaris Boone) Mother Heart disease COPD (chronic obstructive pulmonary disease) Lupus Daughter Growth disorder Down syndrome Fibromyalgia Grandfather Colon cancer Diabetes Grandmother Heart disease CVA (cerebral vascular accident) Diabetes Pulmonary disease Sister Hypertension Kidney disease Motivation - Motivation to Participate On a scale of 1 to 10, how prepared are you to commit to attending program?: 8 What do you see as barriers to successfully being able to complete the program? : self What do you see as the benefits of succesfully completing the program? In other words, what do you hope to get out of participating in the program?: stop smoking, more energy Are there issues you are dealing with that will interfere with completing the program?: none Do you have a spouse or signficant other, family or friends who will help support you to complete the program?: yes
--- NOTE | 2018-03-09 13:22 | CR.ITP_ITS ---
General Information - General Information Admitting Diagnosis: Z95.5 coronary stenting - Education/Goals Barriers to Learning: None Individual Counseling: Initial Assessment: Nicotine/Smoking, Abnormal Cholesterol Levels, High Blood Pressure, Diabetes, A. Fasting Blood Sugar >100, Hypertension, Low HDL <40/Males or <50/Females, Sedentary Lifestyle, Stress Cardiac Rehabilitation Goals: 1. Maintain the individual as the primary focus of care. 2. To improve the patient's quality of life. 3. Identification of cardiac risk factors and provide cardiac risk factor management. 4. Enhance the psychosocial status of the patient. 5. Reconditioning enough to allow the patient to resume customary activities. 6. Control symptoms of cardiac disease Scale for measuring improvement of personal goals: Enter appropriate number in Comments. 2 = Unchanged. 3 = Slightly Better. 4 = Moderate Improvement. 5 = Met my Goal Personal Goals: Initial Assessment: Quit smoking (participate in smoking cessation, Improve management of stress and emotions, Improve energy level, Participate in home exercise program, Improve knowledge of cardiac disease, Improve muscle strength and endurance, Improve diet and eating habits (eat healthier), Control risk factors (learn risk factor modification) Exercise - Initial Assessment - Visit Date of Eval: 03/09/18 - Initial Eval - Stages of Change Stages of Change:: Contemplate - Exercise Prescription Mode:: Treadmill, Biodyne, Rower, Airdyne, NuStep, Arm Ergometer Angina with exercise?: No Target Heart Rate:: 97-115 - Hypertension Do any of the following apply?: Yes Resting Blood Pressure:: 130/60 - Intervention Home Exercise/Activity Goal:: Sitting Time <3 hrs/day - Education Goals:: Warm-up, RPE DIONE Scale, S/S, Safe Exercise, Self-Monitoring - Exercise Program Goals Exercise Program Goals: Aerobic Activity >30 min, B/P <130/80 Nutrition - Initial Assessment - Program Goals Nutrition Program Goals: LDL <70. Total Cholesterol <200. HDL >45. Triglycerides <150. HgbA1C <7%. BMI <25 - Visit Date of Assessment:: 03/09/18 - Initail Eval - Stages of Change Stages of Change:: Contemplate - Weight Management Height: 1.68 m Weight:: 47.627 kg Total Score:: 5 - Intervention Referral to dietitian:: No Referral to Diabetic Clinic:: No Will attend diet classes:: Yes - Education Gave educational materials for:: Signs & symptoms of hypoglycemia, Signs & symptoms of hyperglycemia, Relate diabetes to coronary artery disease, Healthy eating Tobacco - Initial Assessment - Program Goals Tobacco Program Goals: Complete smoking cessation. Attend education classes. Improve Knowledge Test score - Stage of Change Stages of Change:: Contemplate - Learning Barriers Total Score:: 16 - Family Support Do you have family support?: Yes - Tobacco Use Tobacco Use: Cigarettes How many cigarettes do you smoke per day?: 15 Years Smokin Do you use smokeless tobacco?: No - Intervention Smoking Cessation Referral:: Yes Individual Education/Counseling:: Yes Education Schedule Given:: Yes - Education Gave educational material for:: Tobacco triggers, Coronary artery disease, Risk factors, Sexuality, Medical compliance, Cardiac A&P, Angina signs & symptoms Psychosocial - Initial Assess - Target Goals Target Goals: Assess presence or absence of depression. Using a valid screening tool, maximizes coping skills. Positive support system - Stages of Change Stages of Change:: Contemplate - Psychosocial Test Tool Used:: HANDS Depression Questionnaire Tests Completed: SF - 36 survey completed, Mood Scale Test Total Mood Screening Score:: 9 Self-Efficacy Score:: 2 - Intervention PS - Interventions: Yes Attend Stress Management Classes, Yes Uses Stress Management Skills, No Referral to Mental Health, No Referral to [facility] Case Management, No Referral to Physician - Education Gave educational materials for:: Coping techniques, Signs & symptoms of depression, Stress management, Relaxation techniques - Assistive Devices Assistive Devices:: None Fall Risk Assessed:: Yes Patient Health Questionnaire Initial Assessment 1. Little interest or pleasure in doing things: More than half the days 2. Feeling down, depressed, or hopeless: More than half the days 3. Trouble falling or staying asleep, or sleeping too much: Not at all 4. Feeling tired or having little energy: More than half the days 5. Poor appetite or overeating: Several days 6. Feeling bad about yourself -- or that you are a failure or have let yourself or your family down: Several days 7. Trouble concentrating on things, such as reading the newspaper or watching television: Several days 8. Moving or speaking so slowly that other people could have noticed. Or the opposite - being so fidgety or restless that you have been moving around a lot more than usual: Not at all 9. Thoughts that you would be better off , or of hurting yourself in some way: Not at all How difficult have these problems made it for you to do your work, take care of things at home, or get along with other people?: Somewhat difficult Total Score: 9 CHADWICK-Q SV Test - Statements CAD is a disease of the arteries in the heart: False Examples of risk factors for heart disease: True Angina is chest pain or discomfort: I Don't Know The benefits of resistance training include: True Eating more meat and dairy products: False Anti-platelet medications such as aspirin are important: True The only effective way to manage stress: False An exercise warm-up slowly increases heart rate: True Prepared, processed foods usually have high sodium: True Depression is common after a heart attack: True The statin medications lower cholesterol: True To control blood pressure, lower the amount of sodium: I Don't Know If someone gets chest discomfort during walking: False Transfats are partially hydrogenated vegetable oils: True Sleep apnea that is not treated increases the risk: I Don't Know To control cholesterol, one should become a vegetarian: False Someone knows if he/she is exercising at the right level: I Don't Know Diabetes cannot be prevented with exercise & health eating: False Stress is a large risk for heart attack: True A diet that can help lower blood pressure is rich in: True - Total Score Total Correct Responses: 16 Self-Efficacy Initial Assessment We would like to know how confident you are in doing certain activities. Please select your confidence level for:: Select your confidence level for the following using the scale 1-10 where 1 is not at all confident and 10 is totally confident. Your score is the average of all 6 responses. Fatigue: How confident are you that you can keep the fatigue caused by your disease from interfering with the things you want to do? Select Number: 1 Physical Discomfort or Pain: How confident are you that you can keep the physical discomfort or pain of your disease from interfering with the things you want to do? Select Number: 1 Emotional Distress: How confident are you that you can keep the emotional distress caused by your disease from interfering with the things you want to do? Select Number: 1 Other Symptoms or Health Problems: How confident are you that you can keep other symptoms or health problems from interfering with the things you want to do? Select Number: 1 Different Tasks and Activities: How confident are you that you can do the different tasks and activities needed to manage your health condition so as to reduce your need to see a doctor? Select Number: 5 Medication: How confident are you that you can do things other than just taking medication to reduce how much your illness affects your everyday life? Select Number: 5 Total Score:: 2 Nutrition Survey - Nutrition Survey Instructions Scoring Instructions: Scoring is as follows: Yes = 1 points. No = 0 point. Patient score that is >/=12 is considered to be at potential nutritional risk and could benefit from a referral to a registered dietitian. - Nutrition Survey Initial Have you lost >10 lbs over the past 2 months without trying?: No Are you following a special diet at home for diabetes, low fat, or low salt?: Yes Are you interested in meeting with a dietitian for help understanding your diet? : No Do you eat less than 3 meals a day?: Yes Do you eat fatty meats (santos, sausage, ribs, etc), fried foods, desserts, large amounts of salad dressings, margarine, butter, or cheese most days?: Yes Do you have food allergies? [Enter types in comment field]: No Do you eat in restaurants more than 3 times a week?: No Do you season food with salt, seasoning salt, or garlic salt?: Yes Do you used canned, boxed, frozen meals, or soups, seasoning packets?: Yes Total Score:: 5
[2018-03-09 14:07] VITALS: BP 130/60
[2018-03-09 14:08] VITALS: BP 130/60; PULSE 60; O2SAT 98; BMI 16.9
== END ==
PROVIDERS: Family Provider Family Medicine; PCP Family Medicine; Visit Provider Internal Medicine Cardiovascular Disease
DX: Z95.5 Presence of coronary angioplasty implant and graft (principal); I25.10 Atherosclerotic heart disease of native coronary artery without angina pectoris; I25.2 Old myocardial infarction; Z72.0 Tobacco use

== ENCOUNTER → 2018-03-20 14:53 | Outpatient (CLI) | payer OTHER, SELFPAY ==
[2018-03-20 16:29] LABS: Anion Gap 6 (5-15); BUN 32 mg/dL (7-18); BUN/Creat Ratio 19.4 RATIO (10-20); Calcium,Total 8.4 mg/dL (8.5-10.1); Chloride 103 mmol/L (98-107); Creatinine, Serum 1.65 mg/dL (0.55-1.02); EST Glomerular Filtration Rate 34 mL/min (>60); Est Glom Filt Rate - Afr Amer 41 mL/min (>60); Glucose 247 mg/dL (74-106); Potassium 4.5 mmol/L (3.5-5.1); Sodium Level 137 mmol/L (136-145)
== END ==
PROVIDERS: Family Provider Family Medicine; PCP Family Medicine; Visit Provider Physician Assistant Medical
DX: N28.9 Disorder of kidney and ureter, unspecified (principal)
CPT/HCPCS: 36415; 80048

== ENCOUNTER → 2018-03-23 14:46 | Outpatient (CLI) | payer OTHER, SELFPAY ==
[2018-03-23 15:44] LABS: Absolute Lymphocyte Count 2.64 X10^3/ul (0.83-4.51); Absolute Neutrophil Count 3.7 X10^3/uL (2.0-7.7); Basophil# 0.03 X10^3/uL; Basophil% 0.4 % (0-1); Eosinophil# 0.49 X10^3/uL; Eosinophils% 6.7 % (0-5); Hematocrit 34.1 % (37-47); Lymphocyte # 2.64 X10^3/ul (4.0); Lymphocyte % 36.2 % (19-41); Mean Corp Hgb Conc 32.3 g/gl (32-36); Mean Corpuscular Hgb 30.1 pg (27.0-32.0); Mean Corpuscular Volume 93.2 fL (81-99); Mean Platelet Vol. 9.9 fl (6.2-12.0); Monocyte# 0.46 X10^3/uL; Monocyte% 6.3 % (0-10); Neutrophil # 3.66 X10^3/uL (2.7-7.7); Neutrophil % 50.3 % (47-70); Platelet Count 214 K/mm3 (150-450); RBC Distribution Width CV 12.6 % (11.6-14.6); RBC Distribution Width SD 42.6 fl (35.1-43.9); Red Blood Count 3.66 M/mm3 (4.2-5.4); White Blood Count 7.3 K/mm3 (4.4-11.0)
[2018-03-23 16:07] LABS: POSITIVE COUNT NO; POSITIVE DIFFERENTIAL NO; POSITIVE MORPHOLOGY NO
== END ==
PROVIDERS: Family Provider Family Medicine; PCP Family Medicine; Visit Provider Internal Medicine Cardiovascular Disease
DX: D64.9 Anemia, unspecified (principal)
CPT/HCPCS: 36415; 85025

== ENCOUNTER 2018-03-27 14:15 | Outpatient (RCR) | payer OTHER, SELFPAY ==
--- NOTE | 2018-03-25 13:35 | PCM.CR.ITP ---
General Information - Education/Goals Individual Counselin-Day Assessment: Nicotine/Smoking, High Blood Pressure, Overweight/Obesity - malnutrition Cardiac Rehabilitation Goals: 1. Maintain the individual as the primary focus of care. 2. To improve the patient's quality of life. 3. Identification of cardiac risk factors and provide cardiac risk factor management. 4. Enhance the psychosocial status of the patient. 5. Reconditioning enough to allow the patient to resume customary activities. 6. Control symptoms of cardiac disease Scale for measuring improvement of personal goals: Enter appropriate number in Comments. 2 = Unchanged. 3 = Slightly Better. 4 = Moderate Improvement. 5 = Met my Goal Personal Goals: 30-day Re-assessment: Quit smoking (participate in smoking cessation, Improve management of stress and emotions, Improve energy level, Participate in home exercise program, Get back to work, or to resume activities faster, Improve knowledge of cardiac disease, Improve muscle strength and endurance, Improve diet and eating habits (eat healthier) - weight gain Exercise - 30-day Assessment - Visit Date of Eval: 03/25/18 Session #:: 5 - 72% compliance - Stages of Change Stages of Change:: Action - Exercise Prescription Mode:: Treadmill, Rower, Airdyne, NuStep Frequency (x/week): 3 Duration:: 30 METs - Progression: 0.5-1 MET as tolerated: 3.7 increase 48% Target Heart Rate:: 97-115 - Hypertension Resting Blood Pressure:: 108/52 Peak Exercise Blood Pressure:: 140/50 Medication Changes:: Yes - started on Imdur 30mg - Intervention Home Exercise/Activity Goal:: Sitting Time <3 hrs/day - Education Goals:: Warm-up, RPE DIONE Scale, S/S, Safe Exercise, Self-Monitoring - Exercise Program Goals Exercise Program Goals: Aerobic Activity >30 min Tobacco - 30-Day Assessment - Program Goals Tobacco Program Goals: Complete smoking cessation. Attend education classes. Improve Knowledge Test score - Stage of Change Stages of Change:: Action - Learning Barriers Learning Barriers: Participates in education - Family Support Do you have family support?: Yes - Tobacco Use Tobacco Use: Cigarettes Do you use smokeless tobacco?: No - Intervention Smoking Cessation Referral:: Yes Individual Education/Counseling:: No Education Schedule Given:: Yes - Education Attended class for:: Tobacco triggers, Coronary artery disease, Risk factors, Sexuality, Medical compliance, Cardiac A&P, Angina signs & symptoms Psychosocial - Initial Assess - Target Goals Target Goals: Assess presence or absence of depression. Using a valid screening tool, maximizes coping skills. Positive support system - Psychosocial Test Tool Used:: HANDS Depression Questionnaire - Assistive Devices Fall Risk Assessed:: Yes Psychosocial - 30-Day Assess - Target Goals Target Goals: Assess presence or absence of depression. Using a valid screening tool, maximizes coping skills. Positive support system - Stages of Change Stages of Change:: Action - Psychosocial Test Tool Used:: HANDS Depression Questionnaire - Intervention PS - Interventions: Yes Attend Stress Management Classes, No Referral to Mental Health, No Referral to [facility] Case Management, No Referral to Physician, No Uses Stress Management Skills - Education Attended classes for:: Coping techniques, Signs & symptoms of depression, Stress management, Relaxation techniques - Patient/Program Goal Preventative Medication(s):: Aspirin, Clopidogrel, Statin/lipid - Assistive Devices Assistive Devices:: None Fall Risk Assessed:: Yes Patient Health Questionnaire 30-Day Re-eval Assessment 1. Little interest or pleasure in doing things: Several days 2. Feeling down, depressed, or hopeless: Several days 3. Trouble falling or staying asleep, or sleeping too much: Not at all 4. Feeling tired or having little energy: Several days 5. Poor appetite or overeating: Not at all 6. Feeling bad about yourself -- or that you are a failure or have let yourself or your family down: Not at all 7. Trouble concentrating on things, such as reading the newspaper or watching television: Not at all 8. Moving or speaking so slowly that other people could have noticed. Or the opposite - being so fidgety or restless that you have been moving around a lot more than usual: Not at all 9. Thoughts that you would be better off , or of hurting yourself in some way: Not at all How difficult have these problems made it for you to do your work, take care of things at home, or get along with other people?: Somewhat difficult Total Score: 3 Self-Efficacy 30-Day Re-eval Assessment We would like to know how confident you are in doing certain activities. Please select your confidence level for:: Select your confidence level for the following using the scale 1-10 where 1 is not at all confident and 10 is totally confident. Your score is the average of all 6 responses. Fatigue: How confident are you that you can keep the fatigue caused by your disease from interfering with the things you want to do? Select Number: 4 Physical Discomfort or Pain: How confident are you that you can keep the physical discomfort or pain of your disease from interfering with the things you want to do? Select Number: 4 Emotional Distress: How confident are you that you can keep the emotional distress caused by your disease from interfering with the things you want to do? Select Number: 4 Other Symptoms or Health Problems: How confident are you that you can keep other symptoms or health problems from interfering with the things you want to do? Select Number: 4 Different Tasks and Activities: How confident are you that you can do the different tasks and activities needed to manage your health condition so as to reduce your need to see a doctor? Select Number: 7 Medication: How confident are you that you can do things other than just taking medication to reduce how much your illness affects your everyday life? Select Number: 8 Total Score:: 5
[2018-03-25 13:42] VITALS: BP 108/52; BP 140/50
== END 2018-04-02 23:59 ==
LOC: CR 14:15
PROVIDERS: Family Provider Family Medicine; PCP Family Medicine; Visit Provider Internal Medicine Cardiovascular Disease
DX: I25.10 Atherosclerotic heart disease of native coronary artery without angina pectoris (principal); Z95.5 Presence of coronary angioplasty implant and graft; I21.4 Non-ST elevation (NSTEMI) myocardial infarction; E78.5 Hyperlipidemia, unspecified; J44.9 Chronic obstructive pulmonary disease, unspecified; Z72.0 Tobacco use
CPT/HCPCS: 93798

== ENCOUNTER 2018-04-29 14:15 | Outpatient (RCR) | payer OTHER, SELFPAY ==
[2018-04-03 01:09] VITALS: BP 108/52; BP 140/50
[2018-04-24 10:14] VITALS: BP 122/62; BP 168/76
--- NOTE | 2018-04-24 10:14 | CR.ITP_ITS ---
General Information - General Information Admitting Diagnosis: Z95.5 - Education/Goals Individual Counselin-Day Assessment: Nicotine/Smoking, High Blood Pressure Cardiac Rehabilitation Goals: 1. Maintain the individual as the primary focus of care. 2. To improve the patient's quality of life. 3. Identification of cardiac risk factors and provide cardiac risk factor management. 4. Enhance the psychosocial status of the patient. 5. Reconditioning enough to allow the patient to resume customary activities. 6. Control symptoms of cardiac disease Scale for measuring improvement of personal goals: Enter appropriate number in Comments. 2 = Unchanged. 3 = Slightly Better. 4 = Moderate Improvement. 5 = Met my Goal Personal Goals: 60-day Re-assessment: Quit smoking (participate in smoking cessation, Improve energy level, Participate in home exercise program, Improve knowledge of cardiac disease, Improve diet and eating habits (eat healthier) - gain weight Exercise - 60-Day Assessment - Visit Date of Eval: 04/24/18 - 70.59% compliant Session #:: 12 - Stages of Change Stages of Change:: Action - Exercise Prescription Mode:: Treadmill, Airdyne, NuStep Frequency (x/week): 3 Duration:: 30 METs: 4.0 60% increase Target Heart Rate:: 97-115 max hr 91 - Hypertension Resting Blood Pressure:: 122/62 Peak Exercise Blood Pressure:: 168/76 Medication Changes:: No - Intervention Home Exercise/Activity Goal:: Sitting Time <3 hrs/day - Education Goals:: Warm-up, RPE DIONE Scale, S/S, Safe Exercise, Self-Monitoring - Exercise Program Goals Exercise Program Goals: Aerobic Activity >30 min, B/P <130/80 Nutrition - 60-Day Assessment - Program Goals Nutrition Program Goals: LDL <70. Total Cholesterol <200. HDL >45. Triglycerides <150. HgbA1C <7%. BMI <25 - Visit Date of Eval: 04/24/18 - Stages of Change Stages of Change:: Action - Lipids Has the patient seen the dietitian?: No - Weight Management Weight:: 48.081 kg - Intervention Referral to dietitian:: No Referral to Diabetic Clinic:: No Will attend diet classes:: Yes - Education Attended class for:: Signs & symptoms of hypoglycemia, Signs & symptoms of hyperglycemia, Relate diabetes to coronary artery disease, Healthy eating Tobacco - 60-Day Assessment - Program Goals Tobacco Program Goals: Complete smoking cessation. Attend education classes. Improve Knowledge Test score - Stage of Change Stages of Change:: Action - Learning Barriers Learning Barriers: Participates in education - Family Support Do you have family support?: Yes - Tobacco Use Tobacco Use: Cigarettes Do you use smokeless tobacco?: No - Intervention Smoking Cessation Referral:: Yes Individual Education/Counseling:: Yes Education Schedule Given:: Yes - Education Attended class for:: Tobacco triggers, Coronary artery disease, Risk factors, Sexuality, Medical compliance, Cardiac A&P, Angina signs & symptoms Psychosocial - 60-Day Assess - Target Goals Target Goals: Assess presence or absence of depression. Using a valid screening tool, maximizes coping skills. Positive support system - Stages of Change Stages of Change:: Action - Psychosocial Test Tool Used:: HANDS Depression Questionnaire - Intervention PS - Interventions: Yes Attend Stress Management Classes, Yes Uses Stress Management Skills, No Referral to Mental Health, No Referral to [facility] Case Management, No Referral to Physician Patient Health Questionnaire 60-Day Re-eval Assessment 1. Little interest or pleasure in doing things: Several days 2. Feeling down, depressed, or hopeless: Several days 3. Trouble falling or staying asleep, or sleeping too much: Not at all 4. Feeling tired or having little energy: Several days 5. Poor appetite or overeating: Not at all 6. Feeling bad about yourself -- or that you are a failure or have let yourself or your family down: Not at all 7. Trouble concentrating on things, such as reading the newspaper or watching television: Not at all 8. Moving or speaking so slowly that other people could have noticed. Or the opposite - being so fidgety or restless that you have been moving around a lot more than usual: Not at all 9. Thoughts that you would be better off , or of hurting yourself in some way: Not at all How difficult have these problems made it for you to do your work, take care of things at home, or get along with other people?: Somewhat difficult Total Score: 3 Self-Efficacy 60-Day Re-eval Assessment We would like to know how confident you are in doing certain activities. Please select your confidence level for:: Select your confidence level for the following using the scale 1-10 where 1 is not at all confident and 10 is totally confident. Your score is the average of all 6 responses. Fatigue: How confident are you that you can keep the fatigue caused by your disease from interfering with the things you want to do? Select Number: 4 Physical Discomfort or Pain: How confident are you that you can keep the physical discomfort or pain of your disease from interfering with the things you want to do? Select Number: 5 Emotional Distress: How confident are you that you can keep the emotional distress caused by your disease from interfering with the things you want to do? Select Number: 4 Other Symptoms or Health Problems: How confident are you that you can keep other symptoms or health problems from interfering with the things you want to do? Select Number: 5 Different Tasks and Activities: How confident are you that you can do the different tasks and activities needed to manage your health condition so as to reduce your need to see a doctor? Select Number: 7 Medication: How confident are you that you can do things other than just taking medication to reduce how much your illness affects your everyday life? Select Number: 8 Total Score:: 5
== END 2018-05-02 23:59 ==
LOC: CR 14:15
PROVIDERS: Family Provider Family Medicine; PCP Family Medicine; Visit Provider Internal Medicine Cardiovascular Disease
DX: I25.10 Atherosclerotic heart disease of native coronary artery without angina pectoris (principal); I21.4 Non-ST elevation (NSTEMI) myocardial infarction; E78.5 Hyperlipidemia, unspecified; J44.9 Chronic obstructive pulmonary disease, unspecified; Z72.0 Tobacco use; Z95.5 Presence of coronary angioplasty implant and graft
CPT/HCPCS: 93798

== ENCOUNTER 2018-06-01 14:15 | Outpatient (RCR) | payer OTHER, SELFPAY ==
[2018-05-03 00:57] VITALS: BP 122/62; BP 168/76
--- NOTE | 2018-05-27 08:35 | CR.ITP_ITS ---
General Information - General Information Admitting Diagnosis: Z95.5 - Education/Goals Barriers to Learning: None Individual Counseling: Discharge Assessment: Nicotine/Smoking, High Blood Pressure Cardiac Rehabilitation Goals: 1. Maintain the individual as the primary focus of care. 2. To improve the patient's quality of life. 3. Identification of cardiac risk factors and provide cardiac risk factor management. 4. Enhance the psychosocial status of the patient. 5. Reconditioning enough to allow the patient to resume customary activities. 6. Control symptoms of cardiac disease Scale for measuring improvement of personal goals: Enter appropriate number in Comments. 2 = Unchanged. 3 = Slightly Better. 4 = Moderate Improvement. 5 = Met my Goal Personal Goals: Discharge Reassessment: Quit smoking (participate in smoking cessation, Participate in home exercise program, Improve knowledge of cardiac disease Exercise - 90-Day Assessment - Visit Date of Eval: 05/27/18 Session #:: 24 - Stages of Change Stages of Change:: Action - Exercise Prescription Mode:: Treadmill, Airdyne, NuStep Frequency (x/week): 3 Duration:: 30 METs: 4.5 Target Heart Rate:: 97-115 Max 92 - Hypertension Resting Blood Pressure:: 102/60 Peak Exercise Blood Pressure:: 142/72 Medication Changes:: No - Intervention Home Exercise/Activity Goal:: Sitting Time <3 hrs/day - Education Goals:: Warm-up, RPE DIONE Scale, S/S, Safe Exercise, Self-Monitoring - Exercise Program Goals Exercise Program Goals: Aerobic Activity >30 min, B/P <130/80 Nutrition - 90-Day Assessment - Program Goals Nutrition Program Goals: LDL <70. Total Cholesterol <200. HDL >45. Triglycerides <150. HgbA1C <7%. BMI <25 - Visit Date of Eval: 05/27/18 - Stages of Change Stages of Change:: Action - Lipids Has the patient seen the dietitian?: No - Diabetes Diabetes:: Yes Random Blood Glucose:: 200 - Weight Management Weight:: 48.761 kg - Intervention Referral to dietitian:: No Referral to Diabetic Clinic:: No Will attend diet classes:: Yes - Education Attended class for:: Signs & symptoms of hypoglycemia, Signs & symptoms of hyperglycemia, Relate diabetes to coronary artery disease, Healthy eating Tobacco - 90-Day Assessment - Program Goals Tobacco Program Goals: Complete smoking cessation. Attend education classes. Improve Knowledge Test score - Stage of Change Stages of Change:: Action - Learning Barriers Learning Barriers: Participates in education - Family Support Do you have family support?: Yes - Tobacco Use Tobacco Use: Cigarettes Do you use smokeless tobacco?: No - Intervention Education Schedule Given:: Yes - Education Attended class for:: Tobacco triggers, Coronary artery disease, Risk factors, Sexuality, Medical compliance, Cardiac A&P, Angina signs & symptoms Psychosocial - Initial Assess - Target Goals Target Goals: Assess presence or absence of depression. Using a valid screening tool, maximizes coping skills. Positive support system - Psychosocial Test Tool Used:: HANDS Depression Questionnaire - Assistive Devices Fall Risk Assessed:: Yes Psychosocial - 90-Day Assess - Target Goals Target Goals: Assess presence or absence of depression. Using a valid screening tool, maximizes coping skills. Positive support system - Stages of Change Stages of Change:: Action - Psychosocial Test Tool Used:: HANDS Depression Questionnaire - Intervention PS - Interventions: Yes Attend Stress Management Classes, Yes Uses Stress Management Skills, No Referral to Mental Health, No Referral to [facility] Case Management, No Referral to Physician - Education Attended classes for:: Coping techniques, Signs & symptoms of depression, Stress management, Relaxation techniques - Assistive Devices Assistive Devices:: None Fall Risk Assessed:: Yes Patient Health Questionnaire 90-Day Re-eval Assessment 1. Little interest or pleasure in doing things: Several days 2. Feeling down, depressed, or hopeless: Several days 3. Trouble falling or staying asleep, or sleeping too much: Not at all 4. Feeling tired or having little energy: Several days 5. Poor appetite or overeating: Not at all 6. Feeling bad about yourself -- or that you are a failure or have let yourself or your family down: Not at all 7. Trouble concentrating on things, such as reading the newspaper or watching television: Not at all 8. Moving or speaking so slowly that other people could have noticed. Or the opposite - being so fidgety or restless that you have been moving around a lot more than usual: Not at all 9. Thoughts that you would be better off , or of hurting yourself in some way: Not at all How difficult have these problems made it for you to do your work, take care of things at home, or get along with other people?: Somewhat difficult Total Score: 3 Self-Efficacy 90-Day Re-eval Assessment We would like to know how confident you are in doing certain activities. Please select your confidence level for:: Select your confidence level for the following using the scale 1-10 where 1 is not at all confident and 10 is totally confident. Your score is the average of all 6 responses. Fatigue: How confident are you that you can keep the fatigue caused by your disease from interfering with the things you want to do? Select Number: 5 Physical Discomfort or Pain: How confident are you that you can keep the physical discomfort or pain of your disease from interfering with the things you want to do? Select Number: 5 Emotional Distress: How confident are you that you can keep the emotional distress caused by your disease from interfering with the things you want to do? Select Number: 5 Other Symptoms or Health Problems: How confident are you that you can keep other symptoms or health problems from interfering with the things you want to do? Select Number: 5 Different Tasks and Activities: How confident are you that you can do the different tasks and activities needed to manage your health condition so as to reduce your need to see a doctor? Select Number: 8 Medication: How confident are you that you can do things other than just taking medication to reduce how much your illness affects your everyday life? Select Number: 8 Total Score:: 6
[2018-05-27 08:36] VITALS: BP 102/60; BP 142/72
== END 2018-06-02 23:59 ==
LOC: CR 14:15
PROVIDERS: Family Provider Family Medicine; PCP Family Medicine; Visit Provider Internal Medicine Cardiovascular Disease
DX: I25.10 Atherosclerotic heart disease of native coronary artery without angina pectoris (principal); I21.4 Non-ST elevation (NSTEMI) myocardial infarction; E78.5 Hyperlipidemia, unspecified; J44.9 Chronic obstructive pulmonary disease, unspecified; Z72.0 Tobacco use; Z95.5 Presence of coronary angioplasty implant and graft
CPT/HCPCS: 93798

== ENCOUNTER 2018-06-17 14:15 | Outpatient (RCR) | payer OTHER, SELFPAY ==
[2018-06-03 00:55] VITALS: BP 102/60; BP 142/72
--- NOTE | 2018-06-26 15:23 | PCM.CR.ITP ---
Exercise - Final/Discharge - Visit Date of Eval: 06/26/18 - Graduated 06/17/2018 - Stages of Change Stages of Change:: Action - Exercise Prescription Mode:: Treadmill, Rower, Airdyne, NuStep Frequency (x/week): 3 Duration:: 35 METs: 4.5 Target Heart Rate:: 97-115 - Hypertension Do any of the following apply?: Yes Resting Blood Pressure:: 98/48 Peak Exercise Blood Pressure:: 138/68 - Intervention Home Exercise/Activity Goal:: Moderate Exercise 30 min/day x 5 days/wk - Education Goal Progress: Goal Met - Exercise Program Goals Exercise Program Goals: Aerobic Activity >30 min Nutrition - Final Assessment - Program Goals Nutrition Program Goals: LDL <70. Total Cholesterol <200. HDL >45. Triglycerides <150. HgbA1C <7%. BMI <25 - Visit Date of Eval: 06/26/18 - Diabetes Diabetes:: Yes Insulin: Yes Non-Insulin Dependent?: Yes - Weight Management Height: 5 ft 6 in Weight:: 107 lb - Intervention Referral to dietitian:: No Referral to Diabetic Clinic:: No Will attend diet classes:: Yes - Education Education Goal Reached?: Yes Tobacco - Final Assessment - Program Goals Tobacco Program Goals: Complete smoking cessation. Attend education classes. Improve Knowledge Test score - Stage of Change Stages of Change:: Action - Family Support Do you have family support?: Yes - Tobacco Use Tobacco Use: Non-smoker Do you use smokeless tobacco?: No - Intervention Smoking Cessation Referral:: No Individual Education/Counseling:: No Education Schedule Given:: Yes - Education Education Goal Reached?: Yes Psychosocial - Initial Assess - Target Goals Target Goals: Assess presence or absence of depression. Using a valid screening tool, maximizes coping skills. Positive support system - Psychosocial Test Tool Used:: HANDS Depression Questionnaire - Assistive Devices Fall Risk Assessed:: Yes Psychosocial - Final Assessmen - Target Goals Target Goals: Assess presence or absence of depression. Using a valid screening tool, maximizes coping skills. Positive support system - Stages of Change Stages of Change:: Action - Psychosocial Test Tool Used:: HANDS Depression Questionnaire - Intervention PS - Interventions: Yes Attend Stress Management Classes, Yes Uses Stress Management Skills, No Referral to Mental Health, No Referral to [facility] Case Management, No Referral to Physician - Education Education Goal Reached?: Yes - Patient/Program Goal Preventative Medication(s):: Aspirin, Clopidogrel, Statin/lipid - Assistive Devices Assistive Devices:: None Fall Risk Assessed:: Yes Patient Health Questionnaire Discharge Assessment 1. Little interest or pleasure in doing things: Not at all 2. Feeling down, depressed, or hopeless: Not at all 3. Trouble falling or staying asleep, or sleeping too much: Not at all 4. Feeling tired or having little energy: Several days 5. Poor appetite or overeating: Several days 6. Feeling bad about yourself -- or that you are a failure or have let yourself or your family down: Not at all 7. Trouble concentrating on things, such as reading the newspaper or watching television: Several days 8. Moving or speaking so slowly that other people could have noticed. Or the opposite - being so fidgety or restless that you have been moving around a lot more than usual: Not at all 9. Thoughts that you would be better off , or of hurting yourself in some way: Not at all How difficult have these problems made it for you to do your work, take care of things at home, or get along with other people?: Not difficult at all Total Score: 3 CHADWICK-Q SV Test - Statements CAD is a disease of the arteries in the heart: False Examples of risk factors for heart disease: True Angina is chest pain or discomfort: True The benefits of resistance training include: True Eating more meat and dairy products: False Anti-platelet medications such as aspirin are important: True The only effective way to manage stress: False An exercise warm-up slowly increases heart rate: True Prepared, processed foods usually have high sodium: True Depression is common after a heart attack: True The statin medications lower cholesterol: True To control blood pressure, lower the amount of sodium: True If someone gets chest discomfort during walking: False Transfats are partially hydrogenated vegetable oils: True Sleep apnea that is not treated increases the risk: False To control cholesterol, one should become a vegetarian: False Someone knows if he/she is exercising at the right level: True Diabetes cannot be prevented with exercise & health eating: False Stress is a large risk for heart attack: True A diet that can help lower blood pressure is rich in: True - Total Score Total Correct Responses: 20 Self-Efficacy Discharge Assessment We would like to know how confident you are in doing certain activities. Please select your confidence level for:: Select your confidence level for the following using the scale 1-10 where 1 is not at all confident and 10 is totally confident. Your score is the average of all 6 responses. Fatigue: How confident are you that you can keep the fatigue caused by your disease from interfering with the things you want to do? Select Number: 10 Physical Discomfort or Pain: How confident are you that you can keep the physical discomfort or pain of your disease from interfering with the things you want to do? Select Number: 10 Emotional Distress: How confident are you that you can keep the emotional distress caused by your disease from interfering with the things you want to do? Select Number: 9 Other Symptoms or Health Problems: How confident are you that you can keep other symptoms or health problems from interfering with the things you want to do? Select Number: 9 Different Tasks and Activities: How confident are you that you can do the different tasks and activities needed to manage your health condition so as to reduce your need to see a doctor? Select Number: 10 Medication: How confident are you that you can do things other than just taking medication to reduce how much your illness affects your everyday life? Select Number: 10 Total Score:: 9 Nutrition Survey - Nutrition Survey Instructions Scoring Instructions: Scoring is as follows: Yes = 1 points. No = 0 point. Patient score that is >/=12 is considered to be at potential nutritional risk and could benefit from a referral to a registered dietitian. - Nutrition Survey Discharge Have you lost >10 lbs over the past 2 months without trying?: No Are you following a special diet at home for diabetes, low fat, or low salt?: Yes Are you interested in meeting with a dietitian for help understanding your diet?: Yes Do you eat less than 3 meals a day?: No Do you eat fatty meats (santos, sausage, ribs, etc), fried foods, desserts, large amounts of salad dressings, margarine, butter, or cheese most days?: No Do you have food allergies? [Enter types in comment field]: No Do you eat in restaurants more than 3 times a week?: No Do you season food with salt, seasoning salt, or garlic salt?: No Do you used canned, boxed, frozen meals, or soups, seasoning packets?: No Total Score:: 2
[2018-06-26 15:27] VITALS: BP 138/68; BP 98/48
== END 2018-07-03 23:59 ==
LOC: CR 14:15
PROVIDERS: Family Provider Family Medicine; PCP Family Medicine; Visit Provider Internal Medicine Cardiovascular Disease
DX: I25.10 Atherosclerotic heart disease of native coronary artery without angina pectoris (principal); I21.4 Non-ST elevation (NSTEMI) myocardial infarction; E78.5 Hyperlipidemia, unspecified; J44.9 Chronic obstructive pulmonary disease, unspecified; Z72.0 Tobacco use; Z95.5 Presence of coronary angioplasty implant and graft
CPT/HCPCS: 93798

== ENCOUNTER 2018-06-21 12:46 | Inpatient (IN) | payer OTHER, SELFPAY ==
[2018-06-21] VITALS (16 sets, daily range): BP systolic 97–139; BP diastolic 54–67; PULSE 68–99; RESP 18–27; TEMP 36.6–37.1; O2SAT 90–94; BMI 17.0; BMI 17.6; BMI 17.7
[2018-06-21] MEDS: 0.9% Normal Saline 1,000 ML IV.SOLN. 1500 ML IV (13:34)
[2018-06-21] MEDS: Albuterol 2.5 MG/3 ML VIAL.NEB. INHALATION (13:40)
[2018-06-21] MEDS: Ipratropium/Albuterol Sulfate 3 ML AMPUL.NEB INHALATION ×3 (13:40→22:56)
[2018-06-21 13:43] LABS: Absolute Lymphocyte Count 1.01 X10^3/ul (0.83-4.51); Absolute Neutrophil Count 7.8 X10^3/uL (2.0-7.7); Basophil# 0.01 X10^3/uL; Basophil% 0.1 % (0-1); Eosinophil# 0.12 X10^3/uL; Eosinophils% 1.2 % (0-5); Hematocrit 29.5 % (37-47); Hemoglobin 10.1 g/dl (12.0-15.0); Lymphocyte # 1.01 X10^3/ul (4.0); Lymphocyte % 10.2 % (19-41); Mean Corp Hgb Conc 34.2 g/gl (32-36); Mean Corpuscular Volume 90.5 fL (81-99); Mean Platelet Vol. 9.9 fl (6.2-12.0); Monocyte% 9.1 % (0-10); Neutrophil # 7.82 X10^3/uL (2.7-7.7); Neutrophil % 79.2 % (47-70); POSITIVE COUNT NO; POSITIVE DIFFERENTIAL NO; POSITIVE MORPHOLOGY NO; Platelet Count 216 K/mm3 (150-450); RBC Distribution Width CV 11.6 % (11.6-14.6); RBC Distribution Width SD 36.9 fl (35.1-43.9); Red Blood Count 3.26 M/mm3 (4.2-5.4); White Blood Count 9.9 K/mm3 (4.4-11.0)
[2018-06-21 13:50] LABS: International Normalized Ratio 1.1
[2018-06-21 13:51] LABS: Partial Thromboplast Time 34.8 Seconds (24.1-36.2)
[2018-06-21 13:54] LABS: Lactic Acid 1.4 mmol/L (0.4-2.0)
[2018-06-21 13:56] LABS: ALB/GLOB Ratio 0.6 RATIO (0.9-2.4); AST(SGOT) 10 U/L (15-37); Alanine Aminotransfer ALT/SGPT 12 U/L (13-56); Albumin, Serum 2.4 g/dL (3.2-5.0); Alkaline Phosphatase 94 U/L (45-117); Anion Gap 7 (5-15); BUN 44 mg/dL (7-18); Calcium,Total 8.3 mg/dL (8.5-10.1); Chloride 93 mmol/L (98-107); EST Glomerular Filtration Rate 26 mL/min (>60); Est Glom Filt Rate - Afr Amer 31 mL/min (>60); Estimated Creatinine Clearance 22.13 ml/min; Glucose 108 mg/dL (74-106); Potassium 4.2 mmol/L (3.5-5.1); Protein, Total 6.4 g/dL (6.4-8.2); Sodium Level 128 mmol/L (136-145)
[2018-06-21 14:35] LABS: Bacteria 0 SEEN /hpf (None Seen); Mucous, Urine 0 SEEN /hpf (<or=2+); Red Blood Cells-Urine 0 SEEN /hpf (0-5); White Blood Cells 0 SEEN /hpf (0-5)
[2018-06-21 14:42] LABS: Color, Urine Yellow (Yellow); Glucose, Dipstick 50 mg/dl (Normal); Ketone-Dipstick 15 mg/dl (Negative); Leukocyte Esterase-Dipstick Negative /ul (Negative); Nitrite-Dipstick Negative (Negative); Occult Blood-Urine 10 /ul (Negative); Protein-Dipstick 100 mg/dl (Negative); Urine Bilirubin Dipstick Negative (Negative); Urine Clarity Sl. Cloudy (Clear); Urine Urobilinogen 1 mg/dl (Normal)
[2018-06-21 14:43] LABS: Amorphous Sediment 1+; Squamous Epithelial Cells - UA 0-5 SEEN /hpf (5-10)
[2018-06-21 14:44] LABS: Fine Granular Cast- Urine 0-5 SEEN /lpf (0-5)
[2018-06-21] MEDS: Ceftriaxone 1 GM/50 ML BAG IV (15:16)
[2018-06-21] MEDS: MethylPREDNISolone 125 MG/2 ML Vial IV (15:16)
--- NOTE | 2018-06-21 15:34 | ED.VISSUMM ---
- ER Visit Summary Date of Service: 06/21/18 Chief Complaint: Cough and shortness of breath History of Present Illness: The patient is a 57 F who states that for the past 4 days she has felt weak short of breath. She states her pulse ox is 82% at home. She notes a cough temperature of up to 100. She notes nausea and vomiting stating that she really has not had anything to eat or drink. She is an active smoker with history of coronary artery disease diabetes hypertension hypercholesterolemia and chronic kidney disease. She denies a history of COPD but tells me that her doctor told her she has susceptibility to bronchitis. Physical Examination: Afebrile initial blood pressure 97/54 temperature 98 pulse ox is 90% on room air. When the patient talks to me and when she coughs her pulse ox goes into the 80s. Gen: Well-nourished well-developed thin and appears tired Head: Normocephalic atraumatic Eyes: Perrl EOMI ENT: TMs clear no rhinorrhea moist mucous membranes Neck: Supple no lymphadenopathy no JVD nontender CVS: Regular rate rhythm no murmurs normal S1-S2 Respiratory: Rhonchorous lung sounds and wheezing bilaterally bilaterally chest nontender Abdomen: Soft nontender nondistended normal bowel sounds no masses Back: Nontender Extremity: Nontender no edema Skin: Normal color no rash Neuro: alert orientated ?3 CN II-XII intact normal strength sensation reflexes gait cerebellar Psych: Normal affect normal mood Test Results: Chest x-ray shows a right middle lobe infiltrate. White count 9.9. Troponin negative. Lactic acid 1.4. The patient's creatinine is elevated 2.1 which is off of her baseline. Emergency Department Course and Treatment: Patient received IV fluids. Aerosols Zofran Rocephin azithromycin and Solu-Medrol. Blood cultures were obtained. Plan is admission into the hospital. Impression: 1. Pneumonia 2. Acute kidney injury This note was generated with [employer] dictation software. It may contain incorrect words, spelling, and punctuation that were not noted in review of the chart prior to signing ED Disposition - Plan for ED Patient: Chief Complaint: Cough Referrals: Sin Lujan MD [Primary Care Provider] -
--- NOTE | 2018-06-21 16:02 | HP.PCM_ITS ---
Problem List (1) S/P PTCA (percutaneous transluminal coronary angioplasty) Status: Chronic Comment: stent february 04, 2018 (2) Hypertension Status: Chronic Qualifiers: (3) History of coronary artery stent placement Status: Chronic Comment: PTCA/MIESHA of the of mid RCA with a 2.5 x 28 Promus Synergy 01/15/2018, PTCA MIESHA to Circumflex 02/04/2018 (4) Atherosclerosis of coronary artery of [place] heart without angina pectoris Status: Chronic Qualifiers: Comment: PTCA/MIESHA of the of mid RCA with a 2.5 x 28 Promus Synergy 01/15/2018, Stent to Circumflex 02/2018 (5) NSTEMI (non-ST elevated myocardial infarction) Status: Resolved (6) Tobacco use Status: Chronic Comment: Is working on quitting. Reports she is smoking less. (7) Hyperlipidemia Status: Chronic Qualifiers: Comment: Continues on satin. Will recheck labs (8) COPD (chronic obstructive pulmonary disease) Status: Chronic (9) CKD (chronic kidney disease) stage 3, GFR 30-59 ml/min Status: Chronic (10) DM type 1 (diabetes mellitus, type 1) Status: Chronic Comment: Dx : 2000 Last exacerbation : DKA : 01/18 Hypoglycemic episode : never ER visit : 01/18 History of Present Illness Date of Admission: 06/21/18 Chief Complaint: Cough, shortness of breath. The patient is a 57 year old F who presents to the emergency room with shortness of breath and cough. Patient states her symptoms began 4 days ago. when she describes associated sore throat, fever, chills, nausea with one episode of emesis, poor appetite, weakness. Cough is intermittently productive with clear sputum. She states sore throat has resolved since onset of symptoms. Patient denies formal diagnosis or testing for COPD. She does state she is a long-term smoker and currently smokes a pack to a pack and a half per day. Her other past medical history includes chronic kidney disease stage III, type 1 diabetes mellitus, hyperlipidemia, hypertension, tobacco dependence, CAD with recent history of non-STEMI and stent placement. Past Medical History Past Medical History (Chronic Problems): Chronic Problems (Last Updated 02/20/18 @ 11:47 by BENTON Gardiner) S/P PTCA (percutaneous transluminal coronary angioplasty) (Chronic) stent february 04, 2018 Hypertension (Chronic) History of coronary artery stent placement (Chronic ~01/15/18) PTCA/MIESHA of the of mid RCA with a 2.5 x 28 Promus Synergy 01/15/2018, PTCA MIESHA to Circumflex 02/04/2018 Atherosclerosis of coronary artery of [place] heart without angina pectoris ( Chronic) PTCA/MIESHA of the of mid RCA with a 2.5 x 28 Promus Synergy 01/15/2018, Stent to Circumflex 02/2018 Tobacco use (Chronic) Is working on quitting. Reports she is smoking less. Hyperlipidemia (Chronic) Continues on satin. Will recheck labs COPD (chronic obstructive pulmonary disease) (Chronic) CKD (chronic kidney disease) stage 3, GFR 30-59 ml/min (Chronic) DM type 1 (diabetes mellitus, type 1) (Chronic) Dx : 1999 Last exacerbation : DKA : 01/18 Hypoglycemic episode : never ER visit : 01/18 Medical History: Medical History (Last Updated 02/20/18 @ 11:47 by BENTON Gardiner) Hypertension (Chronic) I10 Atherosclerosis of coronary artery of [place] heart without angina pectoris ( Chronic) I25.10 PTCA/MIESHA of the of mid RCA with a 2.5 x 28 Promus Synergy 01/15/2018, Stent to Circumflex 02/2018 NSTEMI (non-ST elevated myocardial infarction) (Resolved) I21.4 Tobacco use (Chronic) Z72.0 Is working on quitting. Reports she is smoking less. Hyperlipidemia (Chronic) E78.5 Continues on satin. Will recheck labs COPD (chronic obstructive pulmonary disease) (Chronic) J44.9 CKD (chronic kidney disease) stage 3, GFR 30-59 ml/min (Chronic) DM type 1 (diabetes mellitus, type 1) (Chronic) Dx : 1999 Last exacerbation : DKA : 01/18 Hypoglycemic episode : never ER visit : 01/18 Anxiety F41.9 Depression F32.9 Allergies No Known Allergies Allergy (Verified 06/21/18 12:47) Home Medications: Ambulatory Orders Medication Instructions Recorded Clopidogrel Bisulfate [Plavix] 75 mg PO DAILY 06/21/18 Ergocalciferol [Vitamin D] 50,000 unit PO Q7D 06/21/18 Escitalopram Oxalate [Lexapro] 20 mg PO DAILY 06/21/18 Ferrous Sulfate 325 mg PO DAILY@0800 06/21/18 Gabapentin [Neurontin] 300 mg PO QHS 06/21/18 Insulin Detemir [Levemir] 2 unit SQ QHS 06/21/18 Insulin Detemir [Levemir] 10 unit SQ DAILY 06/21/18 Insulin Lispro [Humalog] 12 unit SQ ACHS 06/21/18 Lisinopril [Zestril] 5 mg PO DAILY 06/21/18 Metoprolol Tartrate [Lopressor 25 mg PO BID 06/21/18 (Beta Erwin)] Simvastatin [Zocor] 40 mg PO QHS 06/21/18 Tiotropium Monhegan [Spiriva] 18 mcg IH DAILY 06/21/18 Surgical History: Surgical History (Last Reviewed 06/21/18 @ 16:02 by ELLIE Block) S/P PTCA (percutaneous transluminal coronary angioplasty) (Chronic) Z98.61 stent february 04, 2018 History of coronary artery stent placement (Chronic) Onset Date: ~01/15/18 Z95.5 PTCA/MIESHA of the of mid RCA with a 2.5 x 28 Promus Synergy 01/15/2018, PTCA MIESHA to Circumflex 02/04/2018 H/O: Z98.891 H/O: hysterectomy Z90.710 Hx of appendectomy Z90.49 Surgical History: appendectomy, hysterectomy, - - . Psychiatric History: Depression Lives: Spouse/ Significant Other Smoking Status: Current every day smoker Tobacco Use: Cigarettes Alcohol: None Drugs: None - *Family History Maternal Family History: Family History (Last Reviewed 06/21/18 @ 16:03 by ELLIE Block) Mother Heart disease COPD (chronic obstructive pulmonary disease) Lupus Daughter Growth disorder Down syndrome Fibromyalgia Grandfather Colon cancer Diabetes Grandmother Heart disease CVA (cerebral vascular accident) Diabetes Pulmonary disease Sister Hypertension Kidney disease History Items: - - Lupus. No diabetes Paternal Family History: Family History (Last Reviewed 06/21/18 @ 16:03 by ELLIE Block) Mother Heart disease COPD (chronic obstructive pulmonary disease) Lupus Daughter Growth disorder Down syndrome Fibromyalgia Grandfather Colon cancer Diabetes Grandmother Heart disease CVA (cerebral vascular accident) Diabetes Pulmonary disease Sister Hypertension Kidney disease History Items: No pertinent history, - - No diabetes Review of Systems Constitutional: Reports: Chills, Fever, Malaise, Weakness, Fatigue HEENT: Reports: Nasal Congestion, Sore Throat. Denies: Head Aches, Sinus Drainage Cardiovascular: Reports: Chest Pain - With episodes of coughing.. Denies: Edema , Light Headedness, Palpitations, Syncope Respiratory: Reports: Cough, Shortness of Breath, Sputum production, Wheezing Gastrointestinal: Reports: Nausea, Vomiting. Denies: Abdominal Pain, Constipation, Diarrhea, Hematemesis, Hematochezia Genitourinary: Denies: Dysuria Musculoskeletal: Denies: Joint Pain, Joint Tenderness Skin: Denies: Rash, Wounds Neurological: Denies: Numbness, Tingling, Focal weakness Psychiatric: Reports: Depression Hematologic/ Lymphatic: Denies: Easy Bruising, Easy Bleeding VTE Information - Inpt Only VTE Present on Admission: No VTE Mechan Device Prophylaxis: None VTE Pharm Prophylaxis ordered?: Yes - Physical Exam General: Alert, Oriented x3, Cooperative, - - Ill-appearing HEENT: Atraumatic, PERRLA, EOMI, Normocephalic Oral: Dry Mucosa Neck: Supple, No JVD, Negative Carotid Bruits Lungs: Diminished, Rales, Tachypneic, Wheezes Cardiovascular: Regular rate, Regular Rhythm, Normal S1, Normal S2, No murmurs Abdomen: Bowel Sounds Present, Soft, Non Tender, Non-Distended Extremities: No clubbing, No cyanosis, No edema, Capillary Refill Less than 3 Seconds Skin: No rashes, No breakdown Musculoskeletal: No Tenderness to Palpation of Joints or Extremities Neurological: Cranial nerves II-XII grossly intact, Neuro grossly intact Psych/Mental Status: Normal Affect, Appropriate Vital Signs Temp Pulse Resp BP Pulse Ox 97.9 F 89 26 H 139/63 H 93 06/21/18 14:45 06/21/18 15:00 06/21/18 15:00 06/21/18 15:00 06/21/18 15:00 Oxygen Delivery Method Room Air Weight: 105 lb 13.15 oz Body Mass Index (BMI) 17.0 Finger Stick Blood Glucose 249 Laboratory Tests Past 24 Hrs 06/21/18 06/21/18 06/21/18 13:10 13:10 13:10 WBC 9.9 RBC 3.26 L Hgb 10.1 L Hct 29.5 L MCV 90.5 MCH 31.0 MCHC 34.2 RDW 11.6 RDW Differential 36.9 Plt Count 216 MPV 9.9 Immature Gran % (Auto) 0.200 Neut % (Auto) 79.2 H Lymph % (Auto) 10.2 L Toole % (Auto) 9.1 Eos % (Auto) 1.2 Baso % (Auto) 0.1 Absolute Neuts (auto) 7.8 H Absolute Lymphs (auto) 1.01 Total Counted Not Reportable PT 14.0 INR 1.1 APTT 34.8 Sodium 128 L Potassium 4.2 Chloride 93 L Carbon Dioxide 28.0 Anion Gap 7 BUN 44 H Creatinine 2.10 H Estim Creat Clear Calc 22.13 Est GFR (MDRD) Af Amer 31 L Est GFR (MDRD) Non-Af 26 L BUN/Creatinine Ratio 21.0 H Glucose 108 H Lactic Acid Calcium 8.3 L Total Bilirubin 0.50 AST 10 L ALT 12 L Alkaline Phosphatase 94 Troponin I < 0.015 Total Protein 6.4 Albumin 2.4 L Globulin 4.0 Albumin/Globulin Ratio 0.6 L Urine Color Urine Clarity Urine pH Ur Specific [place] Urine Protein Urine Glucose (UA) Urine Ketones Urine Occult Blood Urine Nitrite Urine Bilirubin Urine Urobilinogen Ur Leukocyte Esterase Urine RBC Urine WBC Ur Squamous Epith Cells Amorphous Sediment Urine Bacteria Fine Granular Casts Urine Mucus 06/21/18 06/21/18 13:10 14:29 WBC RBC Hgb Hct MCV MCH MCHC RDW RDW Differential Plt Count MPV Immature Gran % (Auto) Neut % (Auto) Lymph % (Auto) Toole % (Auto) Eos % (Auto) Baso % (Auto) Absolute Neuts (auto) Absolute Lymphs (auto) Total Counted PT INR APTT Sodium Potassium Chloride Carbon Dioxide Anion Gap BUN Creatinine Estim Creat Clear Calc Est GFR (MDRD) Af Amer Est GFR (MDRD) Non-Af BUN/Creatinine Ratio Glucose Lactic Acid 1.4 Calcium Total Bilirubin AST ALT Alkaline Phosphatase Troponin I Total Protein Albumin Globulin Albumin/Globulin Ratio Urine Color Yellow Urine Clarity Sl. Cloudy Urine pH 5.0 Ur Specific [place] 1.020 Urine Protein 100 H Urine Glucose (UA) 50 H Urine Ketones 15 H Urine Occult Blood 10 H Urine Nitrite Negative Urine Bilirubin Negative Urine Urobilinogen 1 H Ur Leukocyte Esterase Negative Urine RBC 0 SEEN Urine WBC 0 SEEN Ur Squamous Epith Cells 0-5 SEEN Amorphous Sediment 1+ Urine Bacteria 0 SEEN Fine Granular Casts 0-5 SEEN Urine Mucus 0 SEEN Assessment/Plan All Active Problems (Last Updated 02/20/18 @ 11:47 by BENTON Gardiner) NSTEMI (non-ST elevated myocardial infarction) (Resolved) DKA (diabetic ketoacidoses) (Resolved) Intractable nausea and vomiting (Resolved) Ketoacidosis (Resolved) 1. Acute respiratory insufficiency with acute hypoxia secondary to pneumonia and presumed exacerbation of COPD-chest x-ray on admission with right middle lobe infiltrate. Check urine for strep and Legionella. Send sputum for culture. PEP/IS. IV azithromycin and Rocephin. Albuterol and DuoNeb aerosol. IV Solu-Medrol. Supplement oxygen to maintain O2 at or above 90%. Patient will need walking pulse ox prior to discharge. Recommend referral to pulmonary medicine at discharge for pulmonary function testing/formal evaluation of COPD. Blood cultures pending. Check respiratory panel. 2. Acute kidney injury on chronic kidney disease stage III-secondary to dehydration as a result of poor oral intake, nausea. IV fluids. Trend BMP. 3. Type 1 diabetes mellitus with associated [id number]-Byrmg before meals at bedtime with sliding scale insulin. Continue home Levemir and short-acting regimen. Sliding scale insulin. Continue home gabapentin regimen. Hemoglobin A1c January 2018 10.5%. Repeat hemoglobin A1c. 4. CAD status post non-STEMI and PCI-patient underwent PTCA/MIESHA of the mid RCA 01/15/2018 and PTCA MIESHA to circumflex 02/04/18. Follows with Dr. Robbins. Continue Plavix, statin, metoprolol. Monitor tele. 5. Hypertension-stable. Continue home metoprolol regimen. Hold lisinopril secondary to #2. 6. Hyperlipidemia-continue statin. 7. Tobacco dependence-encourage smoking cessation. Nicotine replacement patch if desired. 8. Depression-continue home Lexapro regimen. 9. Moderate protein calorie nutrition-nutrition consult. 10. Iron deficiency anemia-continue iron supplementation. 11. Hyponatremia-suspect secondary to dehydration. IVF. Continue to monitor. DVT prophylaxis-heparin subcu. This patient was seen by ELLIE Block under the supervision of Dr. Samaniego.
[2018-06-21] MEDS: 0.9% Normal Saline 1,000 ML 125 ML IV (17:41)
[2018-06-21 18:06] LABS: Bedside Glucose 197 mg/dL (70-110)
[2018-06-21] MEDS: Insulin Lispro 100 UNIT/ML INSULN.PEN 12 UNIT SC (19:57)
[2018-06-21] MEDS: Insulin Lispro 100 UNIT/ML INSULN.PEN SC ×2 (22:27→23:40)
[2018-06-21] MEDS: guaiFENesin 1,200 MG Tablet 1200 MG PO (22:28)
[2018-06-21] MEDS: Atorvastatin Calcium 20 MG Tablet PO (22:28)
[2018-06-21] MEDS: Metoprolol Tartrate 25 MG Tablet PO (22:28)
[2018-06-21] MEDS: Gabapentin 300 MG Capsule PO (22:28)
[2018-06-21] MEDS: NYSTATIN 500,000 UNIT/5 ML UDC 500000 UNIT PO (22:29)
[2018-06-21] MEDS: 0.9% NaCl Peripheral Flush Adult/Peds IV (22:30)
--- NOTE | 2018-06-21 22:34 | NURSING ---
Blood sugar 525. Call for lab back up. Dr. Freeman, give 10u short acting now. Recheck blood sugar and notify if elevated. OK to give solumedrol. Patient asymptomatic.
[2018-06-21 22:45] LABS: Bedside Glucose > 500 mg/dL (70-110)
[2018-06-21 23:04] LABS: Glucose 526 mg/dL (74-106)
[2018-06-21 23:15] LABS: Bedside Glucose > 500 mg/dL (70-110)
--- NOTE | 2018-06-21 23:34 | NURSING ---
Blood sugar remains 495. Call for lab back up. Give 10 more units short acting per Dr. Freeman.
[2018-06-21 23:41] LABS: Bedside Glucose 495 mg/dL (70-110)
[2018-06-22] VITALS (15 sets, daily range): BP systolic 122–138; BP diastolic 58–68; PULSE 72–107; RESP 16–20; TEMP 36.6–36.8; O2SAT 92–98
[2018-06-22 00:10] LABS: Glucose 507 mg/dL (74-106)
[2018-06-22 00:56] LABS: Bedside Glucose 472 mg/dL (70-110)
[2018-06-22] MEDS: Insulin Lispro 100 UNIT/ML INSULN.PEN SC ×6 (00:58→21:16)
[2018-06-22 01:37] LABS: Glucose 453 mg/dL (74-106)
[2018-06-22 02:11] LABS: Bedside Glucose 401 mg/dL (70-110)
[2018-06-22] MEDS: 0.9% Normal Saline 1,000 ML 125 ML IV ×3 (02:12→21:13)
[2018-06-22 03:11] LABS: Bedside Glucose 358 mg/dL (70-110)
[2018-06-22 06:46] LABS: Bedside Glucose 271 mg/dL (70-110)
[2018-06-22 06:55] LABS: Hematocrit 26.9 % (37-47); Hemoglobin 9.2 g/dl (12.0-15.0); Mean Corp Hgb Conc 34.2 g/gl (32-36); Mean Corpuscular Hgb 30.7 pg (27.0-32.0); Mean Corpuscular Volume 89.7 fL (81-99); Mean Platelet Vol. 9.8 fl (6.2-12.0); Platelet Count 212 K/mm3 (150-450); RBC Distribution Width CV 11.4 % (11.6-14.6); RBC Distribution Width SD 36.2 fl (35.1-43.9); White Blood Count 8.8 K/mm3 (4.4-11.0)
--- NOTE | 2018-06-22 06:57 | PCM.PN.HOSP ---
Subjective: Patient overnight with severely elevated blood sugars into 500 range. Hemoglobin A1c resulted in although improved from prior ongoing uncontrolled blood sugars with steroid initiation. Patient pulmonary status has improved and she feels less dyspneic, less wheezing as well as less coughing with review of labs which included positive rhinovirus on viral panel. Discussed with patient's planned continued antibiotic therapy for possible concurrent bacterial infection. Discussed plan for transition to oral prednisone therapy given pulmonary improvement secondary to severity of elevated blood sugars. Patient denies fevers, chills, nausea, emesis, abdominal pain, chest pain. Objective: Physical Examination: General: awake, alert, oriented x 3 and cooperative, seated upright in the bed, less fatigued than prior. Skin: normal color, turgor, no icterus, cyanosis. HEENT: AT/NC, EOMI, PERRLA, improved, less dry MM. Lungs: Improved, still severely diminished BS BL, > R base to mid posterior field and L base, improved moderate effort, lessened expiratory wheezing. Heart: Regular rate and rhythm; no gallop, rub audible. Abdomen: soft, thin habitus, NTTP, ND, normal BS. Extremities: no cyanosis, clubbing or edema, evidence of muscle and fat loss. Neurological: patient awake, alert, oriented x 3; cognitive function intact; pupils equally reactive to light and accomodation; cranial nerves II-XII grossly normal, moving all 4 extremities, no focal deficits, strength improved, moderately to severely globally decreased. Psychiatric: affect appears normal, no acute evidence of depressive or anxiety feelings. Vitals/I&O's: Vital Signs Temp Pulse Resp BP Pulse Ox 98.1 F 72 16 122/60 H 94 06/22/18 02:15 06/22/18 03:59 06/22/18 02:15 06/22/18 02:15 06/22/18 02:15 Oxygen Delivery Method Room Air Weight: 110 lb 0.171 oz Body Mass Index (BMI) 17.6 Intake and Output for Last 24 Hours 06/20/18 06/21/18 06/22/18 23:59 23:59 23:59 Intake Total 1668 / 1668 848 / 848 Balance 1668 / 1668 848 / 848 Microbiology Past 72 Hours 06/21/18 19:05 Mucosa - Nasopharyngeal Respiratory Panel (PCR) - Preliminary Rhinovirus 06/21/18 21:14 Urine, Clean Catch Streptococcus pneumoniae Antigen (M - Final 06/21/18 21:14 Urine, Clean Catch Legionella Antigen - Final Laboratory Results 06/21/18 17:39: POC Glucose 197 H 06/21/18 22:21: POC Glucose > 500 H* 06/21/18 22:40: Glucose 526 H* 06/21/18 23:06: POC Glucose > 500 H* 06/21/18 23:30: POC Glucose 495 H* 06/21/18 23:45: Glucose 507 H* 06/22/18 00:52: POC Glucose 472 H* 06/22/18 01:05: Glucose 453 H* 06/22/18 02:02: POC Glucose 401 H 06/22/18 03:04: POC Glucose 358 H 06/22/18 05:20: WBC Pending, RBC Pending, Hgb Pending, Hct Pending, MCV Pending, MCH Pending, MCHC Pending, RDW Pending, RDW Differential Pending, Plt Count Pending 06/22/18 05:20: Sodium Pending, Potassium Pending, Chloride Pending, Carbon Dioxide Pending, Anion Gap Pending, BUN Pending, Creatinine Pending, Est GFR (MDRD) Af Amer Pending, Est GFR (MDRD) Non-Af Pending, BUN/Creatinine Ratio Pending, Glucose Pending, Calcium Pending 06/22/18 06:30: POC Glucose 271 H Current Medications Acetaminophen (Tylenol) 650 mg PO Q6H PRN PRN PRN Reason: Mild Pain (scale 0-3)/T>100.7 Albuterol Sulfate (Ventolin Aerosols) 2.5 mg INHALATION Q2H PRN PRN PRN Reason: SHORTNESS OF BREATH Albuterol/Ipratropium (Duoneb) 3 ml INHALATION Q4H.RT [facility] Last Admin: 06/22/18 03:10 Dose: Not Given Atorvastatin Calcium (Lipitor) 20 mg PO QHS [facility] Last Admin: 06/21/18 22:28 Dose: 20 mg Clopidogrel Bisulfate (Plavix) 75 mg PO DAILY [facility] Docusate Sodium (Colace) 200 mg PO BID PRN PRN PRN Reason: Constipation Ergocalciferol (Vitamin D) 50,000 unit PO Powell@0800 [facility] Escitalopram Oxalate (Lexapro) 20 mg PO DAILY [facility] Ferrous Sulfate (Ferrous Sulfate) 325 mg PO DAILY@0800 [facility] Gabapentin (Neurontin) 300 mg PO QHS [facility] Last Admin: 06/21/18 22:28 Dose: 300 mg Guaifenesin (Mucinex) 1,200 mg PO BID [facility] Last Admin: 06/21/18 22:28 Dose: 1,200 mg Hydralazine HCl (Apresoline Iv) 10 mg IV Q4H PRN PRN PRN Reason: SBP > 160 Sodium Chloride () 1,000 mls @ 125 mls/hr IV .Q8H [facility] Last Admin: 06/22/18 02:12 Dose: 125 mls/hr Azithromycin 500 mg/ Dextrose 255 mls @ 250 mls/hr IV Q24 [facility] Stop: 06/24/18 11:02 Ceftriaxone Sodium (Rocephin) 1 gm in 50 mls @ 100 mls/hr IV Q24H [facility] Insulin Glargine (Lantus (Bkc)) 12 units SC BID [facility] Insulin Human Lispro (Humalog Kwikpen (Bkc)) 0 unit SC ACHS [facility] PRN Reason: Protocol Last Admin: 06/22/18 06:31 Dose: 9 u Insulin Human Lispro (Humalog Kwikpen (Bkc)) 15 unit SC TIDCM [facility] Magnesium Hydroxide (Milk Of Magnesia) 30 ml PO DAILY PRN PRN PRN Reason: Constipation Methylprednisolone (Solu-Medrol) 40 mg IV Q8 [facility] Last Admin: 06/22/18 06:32 Dose: 40 mg Metoprolol Tartrate (Lopressor (Beta Erwin)) 25 mg PO BID [facility] Last Admin: 06/21/18 22:28 Dose: 25 mg Nystatin (Nystatin) 500,000 unit PO 4X/DAY [facility] Last Admin: 06/21/18 22:29 Dose: 500,000 unit Ondansetron HCl (Zofran) 4 mg IV Q8H PRN PRN PRN Reason: NAUSEA Oxycodone HCl (Oxyir) 5 mg PO Q4H PRN PRN PRN Reason: Moderate Pain (pain scale 4-5) Sodium Chloride () 5 - 30 ml IV UD PRN PRN Reason: SALINE FLUSH Last Admin: 06/21/18 22:30 Dose: 10 ml Medical Necessity - Tobacco Use Smoking Status: Current every day smoker Tobacco Use: Cigarettes Assessment/Plan All Active Problems (Last Reviewed 06/21/18 @ 16:47 by Lani Samaniego) NSTEMI (non-ST elevated myocardial infarction) (Resolved) DKA (diabetic ketoacidoses) (Resolved) Intractable nausea and vomiting (Resolved) Ketoacidosis (Resolved) The patient is a 57 y/o F w/ PMHx: Tobacco use, CKD stage III, Anxiety and Depression, Chronic COPD, Hx NSTEMI w/ recent PCI 02/04/18 w/ MIESHA mid RCA and Cx, Diabetes mellitus type I who presents to the [facility] ED on 06/21/18 w/ history of ongoing progressively worsening dyspnea, nonproductive cough, fever, chills, nausea with single episode of emesis as well as poor intake and appetite ?4 days. (1) Hypoxia secondary to Community Acquired Pneumonia, Acute Rhinovirus and Acute on Chronic COPD Exacerbation: ED workup included T 97.9, heart rate 89, BP 125/60, respiratory rate 25, 93% on room air but upon evaluation with any exertion or discussion attempts patient does desaturate to 88%, CBC with WBC 9.9, hemoglobin 10.1, platelet 216 with left shift, unremarkable coags, BMP with sodium 128, chloride 93, BUN/creatinine 44/2.10 (baseline Cr 1.3-1.5), normal anion gap, glucose 108, lactic acid 1.4, troponin less than 0.015, urinalysis with protein, glucose, ketones and elevated specific gravity consistent with dehydration but no obvious evidence of infection, x-ray with right middle lobe infiltrate. Admitted to CT w/ telemetry, maintained on oxygen with wean as tolerated to room air, continue ATC duonebs, PRN albuterol, maintained on IV Rocephin and Azithromycin, IV solumedrol w/ transition as able to prednisone especially with notable hyperglycemia, HOB, IS parameters w/ pending sputum cultures and urine antigens as well as respiratory viral panel obtained w/ + Rhinovirus. Bld cx x 2 obtained in the ED. (2) Diabetes mellitus type I, Uncontrolled w/ Hyperglycemia: Notable hyperglycemia w/ steroid usage w/ highest level 507, last HgbA1c 01/2018 10.5% with repeat improved from prior, 8.4%, will increase home insulin and transition in interim to BID regimen, increase scheduled TID insulin regimen with meals and continue aggressive accu checks w/ ISS high dose, ADA diet. Nutrition consulted. (3) Acute kidney injury w/ Hyponatremia, Hypovolemic on CKD stage III: Secondary to poor intake, dehydration. Admission BUN/Cr 44/2.10, prior baseline creatinine noted to be 1.3-1.5. Hydrated, held nephrotoxic medications, 06/22/18 BUN/Cr 47/1.99, improved but need further improvement, continue hydration. (4) Tobacco Abuse: Encouraged cessation, inpatient consultation per RT, NR if desired. (5) Recent NSTEMI: PCI 02/04/18 w/ MIESHA mid RCA and Cx, following w/ Dr. White, continue home aspirin, Plavix, metoprolol, statin therapy. (6) Hypertension: Continue home regimen including metoprolol, holding lisinopril for acute kidney injury with restart once improved, PRN hydralazine. (7) Hyperlipidemia: Continue home statin regimen. (8) Moderate to severe protein calorie malnutrition: Evidence per BMI, habitus with muscle and fat loss, nutrition consulted. (9) Anxiety and depression: Continue home Lexapro regimen. (10) Chronic Normocytic Anemia: Admission Hgb 10.1, aggressive hydration continued, 06/22/18 Hgb 9.2, will obtain Fe panel, ferritin. (11) DVT prophylaxis: SCDs, heparin. (12) CODE status: FULL code. Code Visit Inpatient E&M: 59875 Subs Hosp L3
[2018-06-22 07:00] LABS: Anion Gap 9 (5-15); BUN 47 mg/dL (7-18); BUN/Creat Ratio 23.6 RATIO (10-20); Calcium,Total 7.8 mg/dL (8.5-10.1); Chloride 98 mmol/L (98-107); Creatinine, Serum 1.99 mg/dL (0.55-1.02); EST Glomerular Filtration Rate 27 mL/min (>60); Est Glom Filt Rate - Afr Amer 33 mL/min (>60); Estimated Creatinine Clearance 24.27 ml/min; Glucose 262 mg/dL (74-106); Potassium 4.5 mmol/L (3.5-5.1); Scan Indicated on CBC? Y/N NO; Sodium Level 129 mmol/L (136-145)
[2018-06-22] MEDS: Ipratropium/Albuterol Sulfate 3 ML AMPUL.NEB INHALATION ×5 (07:15→23:12)
[2018-06-22 07:34] LABS: Ferritin 276 ng/mL (8-252); Iron 15 ug/dL (50-170); Iron Binding Capacity,Total 275 ug/dL (250-450); PERCENT IRON SATURATION 5.5 % (15.0-55.0)
[2018-06-22 07:55] LABS: Bedside Glucose 241 mg/dL (70-110)
[2018-06-22 07:58] LABS: Hemoglobin A1c 8.4 % (4.2-6.3)
[2018-06-22] MEDS: Ferrous Sulfate 325 MG Tablet PO (08:47)
[2018-06-22] MEDS: Insulin Lispro 100 UNIT/ML INSULN.PEN 15 UNIT SC ×3 (08:48→17:47)
[2018-06-22] MEDS: Ceftriaxone 1 GM/50 ML BAG IV (09:05)
[2018-06-22] MEDS: Escitalopram Oxalate 20 MG Tablet PO (09:05)
[2018-06-22] MEDS: Clopidogrel Bisulfate 75 MG Tablet PO (09:07)
[2018-06-22] MEDS: NYSTATIN 500,000 UNIT/5 ML UDC 500000 UNIT PO ×4 (11:00→21:14)
[2018-06-22] MEDS: Heparin Injection (Vial) 5,000 UNIT/ML VIAL 5000 UNIT SC ×2 (11:01→21:16)
[2018-06-22] MEDS: guaiFENesin 1,200 MG Tablet 1200 MG PO ×2 (11:01→21:14)
[2018-06-22] MEDS: Metoprolol Tartrate 25 MG Tablet PO ×2 (11:02→21:14)
--- NOTE | 2018-06-22 12:09 | CASEMGMT ---
RN CM Assessment. See link. Dc PLAN: HOME -Pt states she is independent. No needs identified @ this time. Joyce ROWELL RN ACM
[2018-06-22 12:45] LABS: Bedside Glucose 387 mg/dL (70-110)
[2018-06-22] MEDS: Glucerna Shake 120 ML LIQUID PO (13:02)
[2018-06-22 17:11] LABS: Bedside Glucose 287 mg/dL (70-110)
[2018-06-22] MEDS: Gabapentin 300 MG Capsule PO (21:14)
[2018-06-22] MEDS: Atorvastatin Calcium 20 MG Tablet PO (21:14)
[2018-06-22 22:51] LABS: Bedside Glucose 352 mg/dL (70-110)
[2018-06-23 03:16] VITALS: BP 135/74; PULSE 92; RESP 16; TEMP 36.6; O2SAT 92
[2018-06-23] MEDS: 0.9% Normal Saline 1,000 ML 125 ML IV (05:18)
[2018-06-23 06:58] VITALS: PULSE 94; RESP 20; O2SAT 92
[2018-06-23] MEDS: Ipratropium/Albuterol Sulfate 3 ML AMPUL.NEB INHALATION ×2 (06:58→11:10)
[2018-06-23 07:26] LABS: Absolute Lymphocyte Count 0.68 X10^3/ul (0.83-4.51); Absolute Neutrophil Count 10.2 X10^3/uL (2.0-7.7); Basophil# 0.01 X10^3/uL; Basophil% 0.1 % (0-1); Hematocrit 26.4 % (37-47); Hemoglobin 8.9 g/dl (12.0-15.0); Lymphocyte # 0.68 X10^3/ul (4.0); Lymphocyte % 5.9 % (19-41); Mean Corp Hgb Conc 33.7 g/gl (32-36); Mean Corpuscular Hgb 30.2 pg (27.0-32.0); Mean Corpuscular Volume 89.5 fL (81-99); Monocyte# 0.66 X10^3/uL; Monocyte% 5.7 % (0-10); Neutrophil # 10.24 X10^3/uL (2.7-7.7); Platelet Count 242 K/mm3 (150-450); RBC Distribution Width CV 12.6 % (11.6-14.6); RBC Distribution Width SD 41.1 fl (35.1-43.9); Red Blood Count 2.95 M/mm3 (4.2-5.4); White Blood Count 11.6 K/mm3 (4.4-11.0)
[2018-06-23 07:30] LABS: POSITIVE COUNT NO; POSITIVE DIFFERENTIAL NO; POSITIVE MORPHOLOGY NO
[2018-06-23 07:37] LABS: Anion Gap 9 (5-15); BUN 42 mg/dL (7-18); BUN/Creat Ratio 25.6 RATIO (10-20); Calcium,Total 8.2 mg/dL (8.5-10.1); Chloride 102 mmol/L (98-107); Creatinine, Serum 1.64 mg/dL (0.55-1.02); EST Glomerular Filtration Rate 34 mL/min (>60); Est Glom Filt Rate - Afr Amer 41 mL/min (>60); Estimated Creatinine Clearance 29.45 ml/min; Glucose 352 mg/dL (74-106); Potassium 4.4 mmol/L (3.5-5.1); Sodium Level 132 mmol/L (136-145)
[2018-06-23 07:50] VITALS: BP 145/77; PULSE 99; RESP 18; TEMP 36.6; O2SAT 94
[2018-06-23] MEDS: Insulin Lispro 100 UNIT/ML INSULN.PEN 15 UNIT SC (07:59)
[2018-06-23] MEDS: Insulin Lispro 100 UNIT/ML INSULN.PEN SC (08:00)
[2018-06-23] MEDS: Ferrous Sulfate 325 MG Tablet PO (08:01)
[2018-06-23] MEDS: predniSONE 20 MG Tablet 40 MG PO (08:05)
--- NOTE | 2018-06-23 09:21 | PCM.DC ---
- Discharge Diagnoses Current Active Problems: (1) Hypoxia secondary to Community Acquired Pneumonia, Acute Rhinovirus and Acute on Chronic COPD Exacerbation (2) Diabetes mellitus type I, Uncontrolled w/ Hyperglycemia worsened by steroid usage (3) Acute kidney injury w/ Hyponatremia, Hypovolemic on CKD stage III (4) Tobacco Abuse (5) Recent NSTEMI w/ PCI 02/04/18 w/ MIESHA mid RCA and Cx (6) Hypertension (7) Hyperlipidemia (8) Moderate to severe protein calorie malnutrition (9) Anxiety and depression (10) Chronic Normocytic Anemia You will use the following diet at home:: Calorie/Carbohydrate Controlled (specify 1200, 1400, etc) - Recommendation Cardiac and 1800 calorie diet. Advise intake of glucera shakes three times daily with meals to increase protein intake as needed. Your food should be the consistency of: Regular Your liquids should be the consistency of: Regular/Thin Discharge Activity: - - No aggressive activity until re-evaluation per your primary care physician and completed steroid taper. Return to work on:: 06/29/18 Call your doctor if you observe: Fever of 101 or Higher, Inability to urinate, Inability to have a bowel movement, Shortness of breath, Dizziness, Fainting spells, Chest pain, Uncontrolled pain Instructions: What Is Pneumonia?, Preventing Pneumonia, Pneumonia Treatment, What is COPD?, Chronic Lung Disease: Preventing Lung Infections, Using a Nebulizer (Adult), Caring for Your Inhaler, Using an Inhaler with a Spacer, Using an Inhaler Without a Spacer, Tips for Quitting Smoking (Cardiovascular), Why Do You Smoke?, Planning to Quit Smoking, Getting Support for Quitting Smoking, Coping with Smoking Withdrawal, Staying Smoke-Free, Discharge Instructions for Acute Kidney Injury Additional Instructions: During your admission you were treated for pneumonia in addition to COPD exacerbation and concurrent Rhinoviral infection. Please continue the aerosols via nebulizer for 1 week and then may transition back to your home inhaler regimen. Complete the antibiotic therapy and continue the steroid taper. Please closely monitor your blood sugars as you had notable elevations secondary to the steroids. During the admission we increased your levemir to 12 units twice daily and maintained you on lispro 12 units three times daily with meals as well as overlapping sliding scale. Your blood sugar will improve as your steroid usage decreases. Please continue to closely monitor and we may need as discussed upon discharge need to transition from the increased regimen temporarily used to your home regimen as the steroids decrease. Closely monitor your blood sugar to avoid low blood sugars. Do not hesitate to contact the hospitalist Medical Surgical Floor 3 Charge Nurse to discuss any concerns and/or your Primary Care Physician. Allergies/Adverse Reactions: Allergies No Known Allergies Allergy (Verified 06/21/18 12:47) Medications to take at Discharge Albuterol IH (ProAir) [Proair Hfa] 2 puff INHALATION Q6H PRN PRN 06/21/18 Clopidogrel Bisulfate [Plavix] 75 mg PO DAILY 06/21/18 Ergocalciferol [Vitamin D] 50,000 unit PO Q7D 06/21/18 Escitalopram Oxalate [Lexapro] 20 mg PO DAILY 06/21/18 Ferrous Sulfate 325 mg PO DAILY@0800 06/21/18 Gabapentin [Neurontin] 300 mg PO QHS 06/21/18 Glucagon,Human Recombinant [Glucagon Emergency Kit] 1 mg IJ DAILY 06/21/18 Insulin Detemir [Levemir] 10 unit SQ DAILY 06/21/18 Insulin Lispro [Humalog] 12 unit SQ TIDCM 06/21/18 Lisinopril [Zestril] 2.5 mg PO DAILY 06/21/18 Metoprolol Tartrate [Lopressor (beta darwin)] 25 mg PO BID 06/21/18 Simvastatin [Zocor] 40 mg PO QHS 06/21/18 Tiotropium [place] [Spiriva] 18 mcg IH DAILY 06/21/18 Albuterol Aerosols [Ventolin Aerosols] 2.5 mg INHALATION Q2H PRN PRN #1 box 06/23/18 Azithromycin 500 mg PO DAILY #1 tab 06/23/18 Cefdinir [Omnicef [equiv]] 300 mg PO Q12H #14 cap 06/23/18 Guaifenesin [Mucinex] 1,200 mg PO BID #20 tab 06/23/18 Ipratropium/Albuterol Sulfate [Duoneb] 3 ml INHALATION Q4H.RT #1 box 06/23/18 Nebulizer [Lc Plus] 1 ea MC UD #1 ea 06/23/18 Nystatin 500,000 unit PO 4X/DAY #1 bottle 06/23/18 Prednisone 10 mg PO UD #30 tab 06/23/18 The following prescriptions were given: Albuterol Aerosols [Ventolin Aerosols] 2.5 mg INHALATION Q2H PRN PRN #1 box PRN Reason: dyspnea, wheezing Ipratropium/Albuterol Sulfate [Duoneb] 3 ml INHALATION Q4H.RT #1 box Azithromycin 500 mg PO DAILY #1 tab Cefdinir [Omnicef [equiv]] 300 mg PO Q12H #14 cap Nebulizer [Lc Plus] 1 ea MC UD #1 ea Prednisone 10 mg PO UD #30 tab Guaifenesin [Mucinex] 1,200 mg PO BID #20 tab Nystatin 500,000 unit PO 4X/DAY #1 bottle Primary Care Physician: Sin Lujan MD [Primary Care Provider] - Please follow up with your Primary Care Physician in: Follow-up within 1-2 days to review complicated admission. Test Results: Test results from this visit will be discussed in further detail at your follow-up appointment, if applicable. Please Follow Up With: Terrance Alva, DO When: Please establish w/ Dr. Alva, Hair Baler within 2-4 weeks, may see J[employer] FRONT END WEB DEVELOPER. Proposed Discharge Date: 06/23/18
[2018-06-23 09:46] VITALS: O2SAT 90; O2SAT 94
--- NOTE | 2018-06-23 09:47 | PCM.DC.SUM ---
Discharge Date and Diagnosis Date of Admission: 06/21/18 Date of Discharge: 06/23/18 - Primary Discharge Diagnosis (1) Hypoxia secondary to Community Acquired Pneumonia, Acute Rhinovirus and Acute on Chronic COPD Exacerbation (2) Diabetes mellitus type I, Uncontrolled w/ Hyperglycemia worsened by steroid usage (3) Acute kidney injury w/ Hyponatremia, Hypovolemic on CKD stage III (4) Tobacco Abuse (5) Recent NSTEMI w/ PCI 02/04/18 w/ MIESHA mid RCA and Cx (6) Hypertension (7) Hyperlipidemia (8) Moderate to severe protein calorie malnutrition (9) Anxiety and depression (10) Chronic Normocytic Anemia - Secondary Discharge Diagnosis Chronic Problems (Last Reviewed 06/21/18 @ 16:47 by Lani Samaniego) S/P PTCA (percutaneous transluminal coronary angioplasty) (Chronic) stent february 04, 2018 Hypertension (Chronic) History of coronary artery stent placement (Chronic ~01/15/18) PTCA/MIESHA of the of mid RCA with a 2.5 x 28 Promus Synergy 01/15/2018, PTCA MIESHA to Circumflex 02/04/2018 Atherosclerosis of coronary artery of [place] heart without angina pectoris (Chronic) PTCA/MIESHA of the of mid RCA with a 2.5 x 28 Promus Synergy 01/15/2018, Stent to Circumflex 02/2018 Tobacco use (Chronic) Is working on quitting. Reports she is smoking less. Hyperlipidemia (Chronic) Continues on satin. Will recheck labs COPD (chronic obstructive pulmonary disease) (Chronic) CKD (chronic kidney disease) stage 3, GFR 30-59 ml/min (Chronic) DM type 1 (diabetes mellitus, type 1) (Chronic) Dx : 1999 Last exacerbation : DKA : 01/18 Hypoglycemic episode : never ER visit : 01/18 Hospital Course and Treatment Operations: None Procedures: EKG Summary of Care Provided: The patient is a 57 y/o F w/ PMHx: Tobacco use, CKD stage III, Anxiety and Depression, Chronic COPD, Hx NSTEMI w/ recent PCI 02/04/18 w/ MIESHA mid RCA and Cx, Diabetes mellitus type I who presented to the [facility] ED on 06/21/18 w/ history of ongoing progressively worsening dyspnea, nonproductive cough, fever, chills, nausea with single episode of emesis as well as poor intake and appetite ?4 days. ED workup included T 97.9, heart rate 89, BP 125/60, respiratory rate 25, 93% on room air but upon evaluation with any exertion or discussion attempts patient does desaturate to 88%, CBC with WBC 9.9, hemoglobin 10.1, platelet 216 with left shift, unremarkable coags, BMP with sodium 128, chloride 93, BUN/creatinine 44/2.10 (baseline Cr 1.3-1.5) w/ evidence concurrent UMA, normal anion gap, glucose 108, lactic acid 1.4, troponin less than 0.015, urinalysis with protein, glucose, ketones and elevated specific gravity consistent with dehydration but no obvious evidence of infection, x-ray with right middle lobe infiltrate. Admitted to [facility] w/ initially telemetry, maintained on oxygen with wean successfully to room air and unremarkable oxygenation assessment with exertion (90% on RA with exertion), continued ATC duonebs, PRN albuterol, maintained on IV Rocephin and Azithromycin w/ oral regimen transition upon discharge, IV solumedrol w/ transition to prednisone especially with notable hyperglycemia, HOB, IS parameters w/ pending sputum cultures and negative urine antigens as well as respiratory viral panel obtained w/ + Rhinovirus. Bld cx x 2 obtained in the ED and NGTD. Patient w/ Diabetes mellitus type I, Uncontrolled w/ Hyperglycemia w/ steroid usage w/ highest level 507, last HgbA1c 01/2018 10.5% with repeat improved from prior, 8.4%, during admission increased home insulin and transitioned in interim to levemir BID regimen w/ additionally increased scheduled TID insulin regimen with meals during IV solumedrol usage, discussed discharge planning at length with patient and noted that with prednisone transition her BS did improve but again she was requiring increased insulin regimen. Discussed options for discharge and she noted understanding and felt comfortable with continuing temporarily the increased regimen with very close BS monitor to avoid hypoglycemia and transition to her home regimen once appropriate w/ close and early PCP follow-up. Additionally encouraged patient to establish with Dr. Alva, Pulmonary. Encouraged tobacco cessation, inpatient consultation per RT, NR declined. Concurrent noted upon presentation, evidence Acute kidney injury w/ Hyponatremia, Hypovolemic on CKD stage III , secondary to poor intake, dehydration. Admission BUN/Cr 44/2.10, prior baseline creatinine noted to be 1.3-1.5. Hydrated, held nephrotoxic medications, 06/22/18 BUN/Cr 47/1.99-->06/23/18 BUN/Cr 42/1.64, near baseline, encouraged repeat BMP with PCP. Patient discharged to home in improved condition with continued antibiotic oral therapy regimen to be completed as well as aerosol nebulizers to continue ?1 week with transition following to her home inhaler regimen, steroid taper with adjustments to her home insulin regimen as needed for hyperglycemia with transition to home prior regimen once steroid taper completed or blood sugars necessitate in addition to oral nystatin as suspect patient has not been rinsing with usage of her home inhalers which was encouraged. Encourage patient to follow-up as noted with pulmonary and primary care physician within 1-2 days with visits requested to be made per hospital staff prior to patient discharge. DAY OF DISCHARGE PROGRESS NOTE: Subjective: Patient without acute event overnight per self and nursing report. She notes breathing has improved, lessened coughing, able to get up and moving with greater ease and not requiring oxygen therapy. Patient denies fever, chills, nausea, emesis, abdominal pain, chest pain. Patient agreeable to discharge to home with continued antibiotic therapy, aerosols, steroid taper and planned close monitoring of her blood sugars with increased regimen as needed to maintain appropriate blood sugar levels. Patient will be discharged with follow-up with primary care physician within 1-2 days in addition to encouraged follow-up with pulmonary medicine within 2-4 weeks to establish. Objective: T 97.8, heart rate 94, respiratory rate 18, BP 145/77, 94% on room air. Physical Examination: General: awake, alert, oriented x 3 and cooperative, seated upright in the bed, well appearing this AM. Skin: normal color, turgor, no icterus, cyanosis. HEENT: AT/NC, EOMI, PERRLA, MMM. Lungs: Improved, still diminished bilateral bases, improved from prior, right greater, improved effort, resolution of prior noted wheezing. Heart: Regular rate and rhythm; no gallop, rub audible. Abdomen: soft, thin habitus, NTTP, ND, normal BS. Extremities: no cyanosis, clubbing or edema, evidence of muscle and fat loss. Neurological: patient awake, alert, oriented x 3; cognitive function intact; pupils equally reactive to light and accomodation; cranial nerves II-XII grossly normal, moving all 4 extremities, no focal deficits, strength improved, mildly to moderately globally decreased. Psychiatric: affect appears normal, no acute evidence of depressive or anxiety feelings. Assessment and Plan: Please see hospital summary above. Discharge Activity: - - No aggressive activity until re-evaluation per your primary care physician and completed steroid taper. Return to work on:: 06/29/18 Call your doctor if you observe: Fever of 101 or Higher, Inability to urinate, Inability to have a bowel movement, Shortness of breath, Dizziness, Fainting spells, Chest pain, Uncontrolled pain Home Medications: Medications to take at Discharge Albuterol IH (ProAir) [Proair Hfa] 2 puff INHALATION Q6H PRN PRN 06/21/18 Clopidogrel Bisulfate [Plavix] 75 mg PO DAILY 06/21/18 Ergocalciferol [Vitamin D] 50,000 unit PO Q7D 06/21/18 Escitalopram Oxalate [Lexapro] 20 mg PO DAILY 06/21/18 Ferrous Sulfate 325 mg PO DAILY@0800 06/21/18 Gabapentin [Neurontin] 300 mg PO QHS 06/21/18 Glucagon,Human Recombinant [Glucagon Emergency Kit] 1 mg IJ DAILY 06/21/18 Insulin Detemir [Levemir] 10 unit SQ DAILY 06/21/18 Insulin Lispro [Humalog] 12 unit SQ TIDCM 06/21/18 Lisinopril [Zestril] 2.5 mg PO DAILY 06/21/18 Metoprolol Tartrate [Lopressor (beta darwin)] 25 mg PO BID 06/21/18 Simvastatin [Zocor] 40 mg PO QHS 06/21/18 Tiotropium [place] [Spiriva] 18 mcg IH DAILY 06/21/18 Albuterol Aerosols [Ventolin Aerosols] 2.5 mg INHALATION Q2H PRN PRN #1 box 06/23/18 Azithromycin 500 mg PO DAILY #1 tab 06/23/18 Cefdinir [Omnicef [equiv]] 300 mg PO Q12H #14 cap 06/23/18 Guaifenesin [Mucinex] 1,200 mg PO BID #20 tab 06/23/18 Ipratropium/Albuterol Sulfate [Duoneb] 3 ml INHALATION Q4H.RT #1 box 06/23/18 Nebulizer [Lc Plus] 1 ea MC UD #1 ea 06/23/18 Nystatin 500,000 unit PO 4X/DAY #1 bottle 06/23/18 Prednisone 10 mg PO UD #30 tab 06/23/18 Following Prescrptions Were Given to Patient: Albuterol Aerosols [Ventolin Aerosols] 2.5 mg INHALATION Q2H PRN PRN #1 box PRN Reason: dyspnea, wheezing Ipratropium/Albuterol Sulfate [Duoneb] 3 ml INHALATION Q4H.RT #1 box Azithromycin 500 mg PO DAILY #1 tab Cefdinir [Omnicef [equiv]] 300 mg PO Q12H #14 cap Nebulizer [Lc Plus] 1 ea MC UD #1 ea Prednisone 10 mg PO UD #30 tab Guaifenesin [Mucinex] 1,200 mg PO BID #20 tab Nystatin 500,000 unit PO 4X/DAY #1 bottle Primary Care Physician: Sin Lujan MD [Primary Care Provider] - Please follow up with your Primary Care Physician in: Follow-up within 1-2 days to review complicated admission. Please Follow Up With: Terrance Alva, DO When: Please establish w/ Dr. Alva, Continuous Miner Operator within 2-4 weeks, may see TINSMITH HELPER. Patient Instructions: Tips for Quitting Smoking (Cardiovascular), What is COPD?, Chronic Lung Disease: Preventing Lung Infections, Caring for Your Inhaler, Using an Inhaler with a Spacer, Using an Inhaler Without a Spacer, What Is Pneumonia?, Preventing Pneumonia, Pneumonia Treatment, Why Do You Smoke?, Planning to Quit Smoking, Getting Support for Quitting Smoking, Coping with Smoking Withdrawal, Staying Smoke-Free, Discharge Instructions for Acute Kidney Injury, Using a Nebulizer (Adult) Disposition: Home Minutes spent on discharge:: 35 Patient Condition:: Fair Medical Necessity - Tobacco Use Smoking Status: Current every day smoker Tobacco Use: Cigarettes Meaningful Use Info Meaningful Use Diagnoses (Choose all that apply): None applicable Code Visit Inpatient E&M: 88179 Disch Hosp
--- NOTE | 2018-06-23 10:20 | CASEMGMT ---
BO NICHOLSON received updated and script from Dr. Samaniego that patient will need a nebulizer machine. BO NICHOLSON spoke with patient regarding nebulizer machine and DME companies. Patient is agreeable to [facility] [place]. Script and referral sent to [facility] [place] and arranged for nebulizer to be delivered to hospital prior to patient's discharge. BO NICHOLSON updated patient, voiced no further needs or concerns. BO NICHOLSON will continue to follow this patient and plan for a safe discharge.
[2018-06-23 11:01] LABS: Bedside Glucose 387 mg/dL (70-110)
[2018-06-23 11:11] VITALS: BP 145/77; PULSE 99
[2018-06-23] MEDS: Escitalopram Oxalate 20 MG Tablet PO (11:11)
[2018-06-23] MEDS: Metoprolol Tartrate 25 MG Tablet PO (11:11)
[2018-06-23] MEDS: Clopidogrel Bisulfate 75 MG Tablet PO (11:19)
[2018-06-23] MEDS: guaiFENesin 1,200 MG Tablet 1200 MG PO (11:19)
[2018-06-23] MEDS: NYSTATIN 500,000 UNIT/5 ML UDC 500000 UNIT PO (11:19)
[2018-06-23] MEDS: Glucerna Shake 120 ML LIQUID PO (11:19)
[2018-06-23 12:31] LABS: Bedside Glucose 262 mg/dL (70-110)
[2018-06-23 12:45] VITALS: BP 128/80; PULSE 88; RESP 18; TEMP 36.7; O2SAT 94
== END 2018-06-23 12:53 | disposition home or self-care (01) | DRG 193 ==
LOC: ED 14:51 → MS3 16:20
PROVIDERS: Internal Medicine; Nurse Practitioner Family; Admitting Provider Family Medicine; Emergency Provider Emergency Medicine; Family Provider Family Medicine; PCP Family Medicine; Visit Provider Family Medicine
DX: J18.9 Pneumonia, unspecified organism (principal); E43 Unspecified severe protein-calorie malnutrition; J44.1 Chronic obstructive pulmonary disease with (acute) exacerbation; J44.0 Chronic obstructive pulmonary disease with (acute) lower respiratory infection; N17.9 Acute kidney failure, unspecified; E87.1 Hypo-osmolality and hyponatremia; I25.10 Atherosclerotic heart disease of native coronary artery without angina pectoris; E78.5 Hyperlipidemia, unspecified; I12.9 Hypertensive chronic kidney disease with stage 1 through stage 4 chronic kidney disease, or unspecified chronic kidney disease; E10.22 Type 1 diabetes mellitus with diabetic chronic kidney disease; N18.3 Chronic kidney disease, stage 3 (moderate); E10.65 Type 1 diabetes mellitus with hyperglycemia; Z95.5 Presence of coronary angioplasty implant and graft; I25.2 Old myocardial infarction; F41.9 Anxiety disorder, unspecified; F32.9 Major depressive disorder, single episode, unspecified; D64.9 Anemia, unspecified; Z72.0 Tobacco use; E86.1 Hypovolemia; R09.02 Hypoxemia; Z79.4 Long term (current) use of insulin; B97.89 Other viral agents as the cause of diseases classified elsewhere; E86.0 Dehydration
CPT/HCPCS: 36415; 71046; 80048; 80053; 81001; 82728; 82947; 82962; 83036; 83540; 83550; 83605; 84484; 85025; 85027; 85610; 85730; 87040; 87086; 87088; 87449; 87633; 93005; 94640; 94667; 94668; 99285; 99406; J7030; J7040; A4216

== ENCOUNTER → 2018-07-01 13:35 | Outpatient (CLI) | payer OTHER, SELFPAY ==
[2018-07-01 15:57] LABS: Hematocrit 34.8 % (37-47); Hemoglobin 10.6 g/dl (12.0-15.0); Mean Corp Hgb Conc 30.5 g/gl (32-36); Mean Corpuscular Hgb 29.7 pg (27.0-32.0); Mean Corpuscular Volume 97.5 fL (81-99); Mean Platelet Vol. 9.2 fl (6.2-12.0); Platelet Count 464 K/mm3 (150-450); RBC Distribution Width CV 13.6 % (11.6-14.6); RBC Distribution Width SD 46.2 fl (35.1-43.9); Red Blood Count 3.57 M/mm3 (4.2-5.4); White Blood Count 9.3 K/mm3 (4.4-11.0)
[2018-07-01 16:01] LABS: Scan Indicated on CBC? Y/N NO
[2018-07-01 16:11] LABS: Anion Gap 8 (5-15); BUN 33 mg/dL (7-18); BUN/Creat Ratio 21.7 RATIO (10-20); Calcium,Total 8.6 mg/dL (8.5-10.1); Chloride 101 mmol/L (98-107); Creatinine, Serum 1.52 mg/dL (0.55-1.02); EST Glomerular Filtration Rate 37 mL/min (>60); Est Glom Filt Rate - Afr Amer 45 mL/min (>60); Glucose 76 mg/dL (74-106); Potassium 4.8 mmol/L (3.5-5.1); Sodium Level 142 mmol/L (136-145)
== END ==
PROVIDERS: Family Provider Family Medicine; PCP Family Medicine; Visit Provider Family Medicine
DX: N18.9 Chronic kidney disease, unspecified (principal); J18.9 Pneumonia, unspecified organism
CPT/HCPCS: 36415; 80048; 85027

== ENCOUNTER 2018-07-09 09:56 | Emergency (ER) | payer OTHER, SELFPAY ==
[2018-07-09 09:57] VITALS: BP 91/44; PULSE 61; RESP 18; TEMP 36.6; O2SAT 100; BMI 17.6
--- NOTE | 2018-07-09 10:09 | EKG12_ITS ---
Test Reason : HYPOTENSION Blood Pressure : / mmHG Vent. Rate : 058 BPM Atrial Rate : 058 BPM P-R Int : 156 ms QRS Dur : 076 ms QT Int : 450 ms P-R-T Axes : 074 -63 077 degrees QTc Int : 441 ms Sinus bradycardia Left axis deviation Abnormal ECG Confirmed by KIRBY MASON ([id number]), senior technical editor HARPAL ELLIS ([id number] on 07/14/2018 2:46:01 PM Referred By: IRMA Confirmed By:KIRBY MASON
--- NOTE | 2018-07-09 10:12 | ED.DCSUM_ITS ---
- ER Visit Summary Date of Service: 07/09/18 Chief Complaint: Low blood pressure History of Present Illness: The patient is a 57 F presents to the emergency department with low blood pressure. The patient was in her normal state of health. She does have multiple comorbidities. In fact, she was just recently admitted for pneumonia. The patient was out of the hospital and just started back at work this week. She states that she finished her prednisone yesterday. She was at work today, began to feel flushed and warm. She took her blood pressure and it was 88 systolic. She states normally, she runs about 120. She felt mildly lightheaded. She states took her blood sugar and was in the 200s. She denies any chest pain. She denies any shortness of breath. She has had a scant cough, but states is improving. She denies any fevers or chills. She states that her appetite has been increasing since her hospital discharge. Physical Examination: Vital signs reviewed General: Well-nourished, well-developed Head: Normocephalic, atraumatic Eyes: Pupils equal and reactive, extraocular muscles intact Neck, supple, no lymphadenopathy Heart: Regular rate and rhythm Respiratory: No distress, clear bilaterally Abdomen: Soft, nontender, nondistended, no peritoneal signs Back: Nontender Extremities: Nontender, no edema, no cords Skin: Normal color no rash Neuro: Alert and oriented, no focal or lateralizing deficits Test Results: [] Emergency Department Course and Treatment: The patient presents with one episode of transient hypotension. On arrival here, her repeat blood pressure was 120 systolic. She was hydrated. Labs were obtained. She does have chronic kidney disease, but it is relatively unchanged from her recent hospitalization. I do not feel that this represents addisonian crisis as she did recently stop her prednisone. She has had no further hypotension. She ambulates without symptoms. Patient was counseled on oral hydration. At this time, I do feel that she is safe for outpatient therapy. Treatment Plan: [] Disposition: Discharge Impression: 1. Hypotension resolved This note was generated with [employer] dictation software. It may contain incorrect words, spelling, and punctuation that were not noted in review of the chart prior to signing ED Disposition - Plan for ED Patient: Disposition: Home or Assisted Living Chief Complaint: Hypotension Instructions: ED Hypotension All Causes Referrals: Sin Lujan MD [Primary Care Provider] -
[2018-07-09 10:25] VITALS: BP 126/62; PULSE 58; O2SAT 98
[2018-07-09] MEDS: 0.9% Normal Saline 1,000 ML 1000 ML IV (10:40)
[2018-07-09 10:57] LABS: Absolute Lymphocyte Count 2.47 X10^3/ul (0.83-4.51); Absolute Neutrophil Count 5.4 X10^3/uL (2.0-7.7); Basophil# 0.07 X10^3/uL; Basophil% 0.8 % (0-1); Eosinophil# 0.28 X10^3/uL; Eosinophils% 3.2 % (0-5); Hemoglobin 10.9 g/dl (12.0-15.0); Lymphocyte # 2.47 X10^3/ul (4.0); Mean Corp Hgb Conc 32.1 g/gl (32-36); Mean Corpuscular Hgb 30.8 pg (27.0-32.0); Mean Platelet Vol. 9.8 fl (6.2-12.0); Monocyte# 0.57 X10^3/uL; Monocyte% 6.5 % (0-10); Neutrophil # 5.43 X10^3/uL (2.7-7.7); Neutrophil % 61.4 % (47-70); Platelet Count 258 K/mm3 (150-450); RBC Distribution Width CV 14.2 % (11.6-14.6); RBC Distribution Width SD 49.8 fl (35.1-43.9); Red Blood Count 3.54 M/mm3 (4.2-5.4); White Blood Count 8.8 K/mm3 (4.4-11.0)
[2018-07-09 11:05] LABS: POSITIVE COUNT NO; POSITIVE DIFFERENTIAL NO; POSITIVE MORPHOLOGY NO
[2018-07-09 11:08] LABS: AST(SGOT) 14 U/L (15-37); Alanine Aminotransfer ALT/SGPT 28 U/L (13-56); Albumin, Serum 2.8 g/dL (3.2-5.0); Alkaline Phosphatase 68 U/L (45-117); Anion Gap 5 (5-15); BUN 50 mg/dL (7-18); BUN/Creat Ratio 26.2 RATIO (10-20); Calcium,Total 8.2 mg/dL (8.5-10.1); Chloride 104 mmol/L (98-107); Creatinine, Serum 1.91 mg/dL (0.55-1.02); EST Glomerular Filtration Rate 29 mL/min (>60); Est Glom Filt Rate - Afr Amer 35 mL/min (>60); Estimated Creatinine Clearance 25.06 ml/min; Globulin 2.9 g/dL (2.2-4.2); Glucose 139 mg/dL (74-106); Potassium 5.1 mmol/L (3.5-5.1); Protein, Total 5.7 g/dL (6.4-8.2); Sodium Level 140 mmol/L (136-145)
[2018-07-09 11:17] VITALS: BP 126/52; PULSE 58
[2018-07-09 13:00] VITALS: BP 144/66; PULSE 68; O2SAT 98
== END 2018-07-09 13:05 | disposition home or self-care (01) ==
LOC: ED 10:45
PROVIDERS: Emergency Provider Emergency Medicine; Family Provider Family Medicine; PCP Family Medicine
DX: I95.89 Other hypotension (principal); I25.10 Atherosclerotic heart disease of native coronary artery without angina pectoris; I12.9 Hypertensive chronic kidney disease with stage 1 through stage 4 chronic kidney disease, or unspecified chronic kidney disease; E11.22 Type 2 diabetes mellitus with diabetic chronic kidney disease; N18.9 Chronic kidney disease, unspecified; J44.9 Chronic obstructive pulmonary disease, unspecified; Z79.4 Long term (current) use of insulin; Z79.899 Other long term (current) drug therapy; Z72.0 Tobacco use
CPT/HCPCS: 80053; 85025; 93005; 96360; 96361; 99283; J7030

== ENCOUNTER → 2018-08-20 10:42 | Outpatient (CLI) | payer OTHER, SELFPAY ==
--- NOTE | 2018-08-20 16:10 | PFTCOMP ---
COMPLETE PULMONARY FUNCTION TEST INTERPRETATION Brief HPI: Patient is a 57 year old female, currently under the care of myself, who presents to [facility] for complete pulmonary function tests secondary to diagnosis of COPD. Respiratory therapist reports good effort and reproducible results. Interpretation: Forced expiration spirometry shows a severe large airways obstructive ventilatory defect with an FEV1 of 46% predicted. There is a significant bronchodilator response in FVC and FEV1 by strict ATS criteria. Spirograms are of good quality and plateau slowly, indicating slowly emptying areas of the lungs. The respiratory flow volume loop shows decreased expiratory flow rates at all lung volumes consistent with airway obstruction. Lung volumes by body plethysmography show an elevated total lung capacity at 6.58 L, 124% predicted. FRC and RV are elevated out of proportion. Lung volume measurements are consistent with hyperinflation and air-trapping. Diffusion capacity by carbon monoxide is at the lower limit of normal at 64% predicted. The airway resistance is elevated. No previous pulmonary function tests were available for review. Impression: Partially reversible severe large airways obstructive ventilatory defect resulting in air trapping with hyperinflation and a symmetric reduction diffusing capacity. These findings are consistent with asthma/COPD overlap syndrome
== END ==
PROVIDERS: Family Provider Family Medicine; PCP Family Medicine; Referring Provider Internal Medicine Critical Care Medicine; Visit Provider Internal Medicine Critical Care Medicine
DX: J44.9 Chronic obstructive pulmonary disease, unspecified (principal); Z72.0 Tobacco use
CPT/HCPCS: 94060; 94726; 94729

== ENCOUNTER → 2018-09-07 13:13 | Outpatient (CLI) | payer OTHER, SELFPAY ==
--- NOTE | 2018-09-07 13:24 | MRI_ITS ---
STUDY: MRI BRAIN WITHOUT CONTRAST REASON FOR EXAM: Female, 57 years old. Headaches, dizziness and neck pain. TECHNIQUE: Standardized multiplanar fat and water weighted pulse sequences were obtained. COMPARISON: 12/07/2012. FINDINGS: No restricted diffusion to suspect acute or subacute ischemic infarct. No remote cortical-based ischemic infarct and no old lacunar cystic infarct. No focal signal abnormalities throughout the brain parenchyma. All of the pulse sequences are normal. Normal size of the ventricles and extra-axial spaces for the patient's age. Normal white matter tracts of the supratentorial brain. Normal bilateral basal ganglia. Normal thalami. There is no extra-axial fluid accumulation. Normal flow voids within the major intracranial circulation suggesting patency by spin echo criteria. Normal sella turcica, pituitary gland, infundibular stalk, optic chiasm and hypothalamus. Normal tectal plate and pineal gland. Normal midbrain, melanie and medulla. Normal cerebellum. Normal basal cisterns. Normal bilateral temporal bones. Normal bilateral internal auditory canals. No demonstrated orbital abnormality, within the constraints of a routine brain study. Minimal mucosal edema in the left maxillary sinus. Moderate amount of mucosal edema in the left sphenoid sinus. Normal calvarium and skull base. Normal visualized soft tissue structures. Normal visualized upper cervical spine. MRI/Brain without Contrast IMPRESSION: 1. Normal unenhanced MRI of the brain. 2. Moderate amount of mucosal edema in the left sphenoid sinus but there is improvement of the mucosal thickening in the right factory sinus and clearing of the mild mucosal edema in both temporal mastoid bones when compared to 12/07/2012. Electronically Signed: Faheem Hernández MD at 15:56 EST , Service support ,
== END ==
PROVIDERS: Family Provider Family Medicine; PCP Family Medicine; Referring Provider Family Medicine; Visit Provider Family Medicine
DX: R42 Dizziness and giddiness (principal)
CPT/HCPCS: 70551

== ENCOUNTER 2019-01-07 16:48 | Emergency (ER) | payer OTHER, SELFPAY ==
[2018-12-31 14:35] VITALS: BMI 16.7
[2019-01-07 16:51] VITALS: BP 101/66; PULSE 55; RESP 16; TEMP 36.1; O2SAT 100; BMI 17.0
--- NOTE | 2019-01-07 17:11 | ED.RN ---
ORANGE JUICE, COOKIES, AND A SANDWICH GIVEN TO PATIENT.
[2019-01-07 18:22] VITALS: BP 135/72; PULSE 57; RESP 12; O2SAT 100
[2019-01-07 18:36] LABS: Bedside Glucose 181 mg/dL (70-110)
--- NOTE | 2019-01-07 20:01 | ED.VISSUMM ---
- ER Visit Summary Date of Service: 01/07/19 Chief Complaint: Hypoglycemia History of Present Illness: The patient is a 58 F who presents with hypoglycemic events that have been getting worse over the past 3 days. Patient was found by her daughter who had to administer glucagon IM at home today due to extremely low blood sugar. Patient states she normally takes 12 units of Levemir in the evening. Patient states she also takes 12 units of Humalog before every meal. Patient states she was recently on prednisone which caused her blood sugars to be elevated. Since stopping the prednisone her blood sugars have been dropping. Physical Examination: Vital signs are stable. Patient is afebrile. Patient is in no acute distress. Oral mucosa is pink and moist. Neck is supple. Trachea is midline. There is no JVD noted. Heart was regular rate and rhythm. Lungs are clear and equal bilateral. Abdomen is soft. Bowel sounds are normal. There is no tenderness. There is no guarding noted. Skin is warm dry. Cranial nerves II through XII are intact. There are no focal motor or sensory deficits noted. The remaining physical exam is within normal limits. Emergency Department Course and Treatment: Patient was given a regular diet tray here. Repeat blood sugar was 181. Patient felt better on reevaluation. Another repeat blood sugar was 288. Patient was instructed to check her blood sugars prior to eating. Patient was instructed to follow-up with her primary care physician for further adjustment of her insulin. Patient and her understood and were agreeable with the plan. All questions were answered. Disposition: Discharge home Impression: Hypoglycemia This note was generated with [employer] dictation software. It may contain incorrect words, spelling, and punctuation that were not noted in review of the chart prior to signing ED Disposition - Plan for ED Patient: Disposition: Home or Assisted Living Diagnosis: Hypoglycemia associated with diabetes Instructions: ED Diabetes Hypoglycemia Insulin React Referrals: Sin Lujan MD [Primary Care Provider] -
[2019-01-07 20:11] LABS: Bedside Glucose 288 mg/dL (70-110)
[2019-01-07 20:15] VITALS: BP 145/72; PULSE 62; RESP 18; O2SAT 98
[2019-01-08 07:05] LABS: Bedside Glucose 54 mg/dL (70-110)
[2019-01-08 07:05] LABS: Bedside Glucose 52 mg/dL (70-110)
== END 2019-01-07 20:16 | disposition home or self-care (01) ==
PROVIDERS: Emergency Provider Emergency Medicine; Family Provider Family Medicine; PCP Family Medicine
DX: E11.649 Type 2 diabetes mellitus with hypoglycemia without coma (principal); Z79.4 Long term (current) use of insulin; I25.10 Atherosclerotic heart disease of native coronary artery without angina pectoris; I25.2 Old myocardial infarction; I10 Essential (primary) hypertension; Z79.01 Long term (current) use of anticoagulants; Z79.899 Other long term (current) drug therapy; Z72.0 Tobacco use
CPT/HCPCS: 82962; 99282; A4216

== ENCOUNTER → 2019-01-18 16:48 | Outpatient (CLI) | payer OTHER, SELFPAY ==
[2019-01-07 16:51] VITALS: BMI 17.0
[2019-01-18 17:32] LABS: Hematocrit 34.2 % (37-47); Hemoglobin 11.1 g/dl (12.0-15.0); Mean Corp Hgb Conc 32.5 g/gl (32-36); Mean Corpuscular Hgb 30.3 pg (27.0-32.0); Mean Corpuscular Volume 93.4 fL (81-99); Mean Platelet Vol. 10.4 fl (6.2-12.0); Platelet Count 173 K/mm3 (150-450); RBC Distribution Width CV 12.6 % (11.6-14.6); RBC Distribution Width SD 42.7 fl (35.1-43.9); Red Blood Count 3.66 M/mm3 (4.2-5.4); Scan Indicated on CBC? Y/N NO; White Blood Count 6.4 K/mm3 (4.4-11.0)
[2019-01-18 18:19] LABS: ALB/GLOB Ratio 0.9 RATIO (0.9-2.4); AST(SGOT) 20 U/L (15-37); Alanine Aminotransfer ALT/SGPT 27 U/L (13-56); Albumin, Serum 3.1 g/dL (3.2-5.0); Alkaline Phosphatase 85 U/L (45-117); Anion Gap 4 (5-15); BUN 56 mg/dL (7-18); BUN/Creat Ratio 27.6 RATIO (10-20); Calcium,Total 8.8 mg/dL (8.5-10.1); Chloride 105 mmol/L (98-107); Creatinine, Serum 2.03 mg/dL (0.55-1.02); EST Glomerular Filtration Rate 27 mL/min (>60); Est Glom Filt Rate - Afr Amer 32 mL/min (>60); Globulin 3.4 g/dL (2.2-4.2); Glucose 210 mg/dL (74-106); Potassium 4.4 mmol/L (3.5-5.1); Protein, Total 6.5 g/dL (6.4-8.2); Sodium Level 137 mmol/L (136-145); Thyroid Stim Hormone (TSH) 2.12 uIU/mL (0.358-3.74)
== END ==
PROVIDERS: Family Provider Family Medicine; PCP Family Medicine; Visit Provider Family Medicine
DX: E10.41 Type 1 diabetes mellitus with diabetic mononeuropathy (principal); R42 Dizziness and giddiness
CPT/HCPCS: 36415; 80053; 84443; 85027

== ENCOUNTER → 2019-01-29 06:51 | Outpatient (CLI) | payer OTHER, SELFPAY ==
[2019-01-07 16:51] VITALS: BMI 17.0
[2019-01-29 07:27] LABS: Hematocrit 35.5 % (37-47); Hemoglobin 11.2 g/dl (12.0-15.0); Mean Corp Hgb Conc 31.5 g/gl (32-36); Mean Corpuscular Volume 95.2 fL (81-99); Mean Platelet Vol. 9.3 fl (6.2-12.0); Platelet Count 330 K/mm3 (150-450); RBC Distribution Width CV 12.7 % (11.6-14.6); RBC Distribution Width SD 42.3 fl (35.1-43.9); Red Blood Count 3.73 M/mm3 (4.2-5.4); White Blood Count 6.9 K/mm3 (4.4-11.0)
[2019-01-29 07:29] LABS: Scan Indicated on CBC? Y/N NO
[2019-01-29 07:48] LABS: Anion Gap 1 (5-15); BUN 24 mg/dL (7-18); BUN/Creat Ratio 15.4 RATIO (10-20); Calcium,Total 8.6 mg/dL (8.5-10.1); Chloride 106 mmol/L (98-107); Creatinine, Serum 1.56 mg/dL (0.55-1.02); EST Glomerular Filtration Rate 36 mL/min (>60); Est Glom Filt Rate - Afr Amer 44 mL/min (>60); Glucose 131 mg/dL (74-106); Potassium 4.9 mmol/L (3.5-5.1); Sodium Level 139 mmol/L (136-145)
[2019-01-29 07:55] LABS: AST(SGOT) 18 U/L (15-37); Alanine Aminotransfer ALT/SGPT 20 U/L (13-56); Alkaline Phosphatase 84 U/L (45-117); Bilirubin, Direct 0.06 mg/dL (0.00-0.30); Cholesterol 162 mg/dL (200); Globulin 3.4 g/dL (2.2-4.2); High Density Lipoprotein 58 mg/dL; Protein, Total 6.4 g/dL (6.4-8.2); Triglycerides 212 mg/dL; Very Low Density Lipoprotein 42 mg/dL (5-40)
== END ==
PROVIDERS: Physician Assistant Medical; Family Provider Family Medicine; PCP Family Medicine; Referring Provider Internal Medicine Cardiovascular Disease; Visit Provider Internal Medicine Cardiovascular Disease
DX: R55 Syncope and collapse (principal); I25.10 Atherosclerotic heart disease of native coronary artery without angina pectoris; I10 Essential (primary) hypertension; E78.5 Hyperlipidemia, unspecified
CPT/HCPCS: 36415; 80048; 80061; 80076; 85027

== ENCOUNTER 2019-02-03 14:46 | Outpatient (RCR) | payer OTHER, SELFPAY ==
--- NOTE | 2019-02-10 12:33 | HP.OTFCE_ITS ---
HP OT Functional Capacity Eval - Task Lift Floor (Occasional 1-33% of Day): 20 Floor (Frequent 34-66% of Day): 10 Floor (Constant 67-100% of Day): Negligible Floor PDL: Light Knee (Occasional 1-33% of Day): 20 Knee (Frequent 34-66% of Day): 10 Knee (Constant 67-100% of Day): Negligible Knee PDL: Light Waist (Occasional 1-33% of Day): 20 Waist (Frequent 34-66% of Day): 10 Waist (Constant 67-100% of Day): Negligible Waist PDL: Light Shoulder (Occasional 1-33% of Day): 15 Shoulder (Frequent 34-66% of Day): 8 Shoulder (Constant 67-100% of Day): Negligible Shoulder PDL: Sedentary-Light Overhead (Occasional 1-33% of Day): 15 Overhead (Frequent 34-66% of Day): 8 Overhead (Constant 67-100% of Day): Negligible Overhead PDL: Sedentary-Light Comments: 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 - Work Activity/Posture Bending: Occasional Ability (1-33% of day) Squatting: Occasional Ability (1-33% of day) Kneeling: Occasional Ability (1-33% of day) Reaching out: Frequent Ability (34-66% of day) Reaching up: Frequent Ability (34-66% of day) Sitting: Frequent Ability (34-66% of day) Walking: Frequent Ability (34-66% of day) Standing: Occasional Ability (1-33% of day) - Reference Duration Sedentary Sedentary Light Light Light Medium Medium Medium Heavy Very Heavy Heavy Occasional (0-33% of day) Frequent (34-66% of day) Constant (67-100% of day) 10 # Negligible Negligible 15 # 8 # Negligible 20 # 10# Negli. 35 # 18 # 7 # 50 # 25 # 10 # 75 # 100 # >100 # 38 # 50 # >50 # 15 # 20 # >20 # - Patient Information Height: 5 ft 6 in Weight:: 48.534 kg Hand Dominance: Right handed - Medical History Medical History Including Restrictions: PMHx: Pt states DM1, COPD, NE (January 2018), 2 stents placed, Partially blocked valve heart, , epindectomy, DKA, chronic kidney disease stage 3, neuropathy bilateral feet - Diagnoses Diagnoses: Pt states DM1, COPD, NE (January 2018), 2 stents placed, Partially blocked valve heart, , epindectomy, DKA, chronic kidney disease stage 3, neuropathy bilateral feet - Symptoms Symptoms: Pt reports: Dizziness/Lightheadedness comes and goes, pain occassionally lower back to hips - Pain Pain: No pain for evaluation, pain occassionally lower back to hips R side - Work History 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 2 story house, 3 steps to enter no handrail. AMB no device, does not have cane/ww, DME. Drives/works 8 hrs daily. Walk in shower, std toilet seats. Indep w/ BADLs/IADLs. Laundry main level. Spouse carries towels, she is able to carry clothes, fold and put away. Cat and dog to care for, family to assist with that as needed. Pt holds onto cart to walk through store and get groceries, spouse assist with carrying groceries. - Physical Examination ROM: BUE WFL, BLE WFL Strength: BUE 4-/5, BLE 3+/5 Right Habilitation Training Specialist Strength Average: 47.33 Left Habilitation Training Specialist Strength Average: 44.00 Right Lateral Pinch Average: 9.33 Left Lateral Pinch Average: 6.66 Right Tripod Pinch Average: 9.00 Left Tripod Pinch Average: 5.66 Sensation: No numbness or tingling, does have neuropathy in bilatearl feet that comes and goes L ring finger cramps up frequently especially at work. Fine Motor: Pt states no concerns with fine motor skills including handwriting, manipulating fasteners. Balance: No falls in past three months, pt states occassionally feels she has off balance movements but no falls. - Non Material Handling Activities Bendinx, 10x, 10x fast no loss of balance, able to touch the floor every time, fatigued at end of bending tasks, seated rest break required. Squattinx, 10x, 10x fast able to kneel past 90 degrees no loss of balance, fatigued at end requiring seated rest break. Kneelinx, 10x, 10x fast kneeling all the way down to floor touching knees to ground every time. Required seated rest break between 10 and 10 fast. Pt state Blood Sugar 125 when she tested after kneeling tasks. Reaching out/up: Reaching out 1x, 10x, 10x fast, reaching up 1 x, 10x 10x fast while seated secondary to legs feeling like jello wanting to give out, unable to complete reaching up while standing. Walkin min walk test= completed 15 minutes w/o rest break needed, no loss of balance. Walk test was completed prior to lifting tasks, bending, squating, kneeling tasks. Standing: Pt able to stand a few minutes at a time between tasks without difficulty or loss of balance in beginning of test and towards end of physical examination legs very fatigued and only able to stand for very short amounts of time, with therapist holding onto gait belt for safety. Sitting: Pt sat first 21 min w/o need to stand or s/s of discomfort Climbing Stairs: Pt completed 10 steps reciprocal movement bilateral hands on h andrails. - Dynamic Occasional Lifting Capacity Floor Lift: 20lb max Knee Lift: 20lb max Waist Lift: 20lb max Shoulder Lift: 15lb max Overhead Lift: 15lb max Carryinlb max, 15ft carrying with therapist holding onto gait belt second chelsea to her legs feeling like they were going to give out. Pt determined to complete task. Comments: Walked out of facility therapist holding onto gait belt, 107 ft had to stop secondary to legs unsteady and fatigued, seated rest break for 3 minutes, 270ft total to car legs shaking, pt very fatigued once seated in car. Pt stated her legs are very tired. Educated spouse to assist pt with getting in/out of car and into the house after evaluation.
== END 2019-02-03 19:00 | disposition home or self-care (01) ==
LOC: OT 14:46
PROVIDERS: Family Provider Family Medicine; PCP Family Medicine; Referring Provider Family Medicine; Visit Provider Family Medicine
DX: Z02.9 Encounter for administrative examinations, unspecified (principal); M54.9 Dorsalgia, unspecified
CPT/HCPCS: 97165; 97166; 97167

== ENCOUNTER → 2019-02-11 | Outpatient (CLI) | payer OTHER, SELFPAY ==
--- NOTE | 2019-02-11 13:20 | PCM.TILTTABL ---
- Summary Pre Test Resting HR: 74 Pre Test Resting BP: 153/65 Minimum Test HR: 70 Maximum Test HR: 85 Minimum Test BP: 62/40 Maximum Test BP: 153/65 Physician Tilt Table Report - Patient's Physicians Primary Care Physician: Sin Lujan Indications/Diagnosis: Intermittent dizziness. Procedure Comments: Patient was brought to the noninvasive lab in the postabsorptive state. A tilt table was performed via standard protocol. In the recumbent position the patient's heart rate was noted to be 74 bpm with a blood pressure 153/65 mmHg. The patient was then put up in the 70 degree upright tilt position. Patient immediately started getting dizzy on standing. After approximately 20 minutes patient was noted to drop her blood pressure to 87 mmHg systolic and then finally to 62 mmHg. She became pale and was having a hard time breathing was diaphoretic and nauseated. The patient maintained sinus rhythm throughout the recording though. The heart rate did increase from 74 to a peak of 83. The patient was noted to be on a beta-darwin. Summary: Abnormal tilt table test with orthostatic changes. The above is not suggestive of vasodepressor syncope but probably more consistent with orthostatic hypotension.
[2019-02-11 13:38] VITALS: BP 153/65; BP 62/40
== END | disposition home or self-care (01) ==
LOC: CVS 09:16
PROVIDERS: Family Provider Family Medicine; PCP Family Medicine; Referring Provider Internal Medicine Cardiovascular Disease; Visit Provider Internal Medicine Cardiovascular Disease
DX: R42 Dizziness and giddiness (principal); R00.2 Palpitations; R55 Syncope and collapse
CPT/HCPCS: J7040; A4216

== ENCOUNTER → 2019-03-23 12:45 | Outpatient (CLI) | payer OTHER, SELFPAY ==
[2019-03-23 13:18] LABS: Hematocrit 35.4 % (37-47); Hemoglobin 11.4 g/dl (12.0-15.0); Mean Corp Hgb Conc 32.2 g/gl (32-36); Mean Corpuscular Hgb 30.2 pg (27.0-32.0); Mean Corpuscular Volume 93.9 fL (81-99); Mean Platelet Vol. 10.5 fl (6.2-12.0); Platelet Count 251 K/mm3 (150-450); RBC Distribution Width CV 12.3 % (11.6-14.6); RBC Distribution Width SD 40.6 fl (35.1-43.9); Red Blood Count 3.77 M/mm3 (4.2-5.4); Scan Indicated on CBC? Y/N NO; White Blood Count 6.1 K/mm3 (4.4-11.0)
[2019-03-23 13:29] LABS: Protein:Creat Ratio 1025 mg/g CRE (0-200)
[2019-03-23 13:43] LABS: Albumin, Serum 3.1 g/dL (3.2-5.0); BUN 26 mg/dL (7-18); BUN/Creat Ratio 15.5 RATIO (10-20); Calcium,Total 8.4 mg/dL (8.5-10.1); Chloride 102 mmol/L (98-107); Creatinine, Serum 1.68 mg/dL (0.55-1.02); EST Glomerular Filtration Rate 33 mL/min (>60); Est Glom Filt Rate - Afr Amer 40 mL/min (>60); Glucose 131 mg/dL (74-106); Phosphorus 3.4 mg/dL (2.5-4.9); Potassium 5.2 mmol/L (3.5-5.1); Sodium Level 138 mmol/L (136-145)
[2019-03-23 13:48] LABS: PTHIN 117.1 pg/mL (18.4-80.1)
[2019-03-24 10:34] LABS: Urine Sodium 64 mmol/L (Not Establ.)
== END ==
LOC: POLAB3 12:46
PROVIDERS: Family Provider Family Medicine; PCP Family Medicine; Visit Provider Internal Medicine Nephrology
DX: N18.3 Chronic kidney disease, stage 3 (moderate) (principal); N17.9 Acute kidney failure, unspecified; R80.9 Proteinuria, unspecified
CPT/HCPCS: 36415; 80069; 82570; 83970; 84156; 84300; 85027

== ENCOUNTER → 2019-04-09 06:18 | Outpatient (CLI) | payer OTHER, SELFPAY ==
--- NOTE | 2019-04-09 09:00 | CDU_ITS ---
Reason For Study: SYNCOPE Rt. Velocities/BP Lt. Velocities/BP Prox CCA 119/30 cm/sec. Prox CCA 123/27 cm/sec. Mid CCA 93/25 cm/sec. Mid CCA 129/29 cm/sec. Dist CCA 90/24 cm/sec. Dist CCA 126/24 cm/sec. Prox ICA 89/34 cm/sec. Prox ICA 88/36 cm/sec. Mid ICA 82/29 cm/sec. Mid ICA 96/36 cm/sec. Dist ICA 98/40 cm/sec. Dist ICA 90/31 cm/sec. Rt. ICA/CCA = .8. Lt. ICA/CCA = .7. Prox ECA 124/8 cm/sec. Prox ECA 179/8 cm/sec. Rt. Vert. 60/19 cm/sec. Lt. Vert. 45/14 cm/sec. Right Extracranial There is heterogeneous, irregular atherosclerotic plaque noted in the right common carotid artery. There is heterogeneous, irregular atherosclerotic plaque noted in the right internal carotid artery. There is intimal thickening but no significant atherosclerotic plaque noted in the right external carotid artery. Antegrade flow is noted in the right vertebral artery. Left Extracranial There is heterogeneous, irregular atherosclerotic plaque noted in the left common carotid artery. There is homogeneous, smooth atherosclerotic plaque noted in the left common carotid artery. There is heterogeneous, irregular atherosclerotic plaque noted in the left internal carotid artery. There is intimal thickening but no significant atherosclerotic plaque noted in the left external carotid artery. Antegrade flow is noted in the left vertebral artery. Procedure Carotid Duplex [id number]. Exam performed in department. Interpretation Summary Mild (<50%) stenosis right extracranial internal carotid. Mild (<50%) stenosis left extracranial internal carotid. Flow within the vertebral arteries is antegrade bilaterally. Ordering Physician: Mynor Anthony/Salomon Robbins Referring Physician: JULIET ZAPATA Performed By: Юлия Drummond, RDCS, RVT
--- NOTE | 2019-04-09 15:38 | STRESSREP ---
Stress Test Report Exercise myocardial perfusion stress test. 58-year-old lady with a history of coronary artery disease status post previous non-ST elevation microinfarction. Medications: Plavix Humalog Lopressor Zocor. Stress protocol: Resting EKG demonstrates normal sinus rhythm with a rate of 78 bpm normal intervals are noted resting blood pressure 150/78 mmHg. The patient exercised according to regular Rios protocol for total duration of 8 minutes and 30 seconds the maximum heart rate attained was 129 bpm which was 80% of maximum predicted heart rate the maximum workload was 10.1 metabolic equivalents. At rest there were no ST or T wave changes noted suggest ischemia peak exercise upsloping ST changes only were noted with no meet the criteria for ischemia. No clinical angina was noted. Myocardial perfusion protocol. 11.7 mCi of technetium 99m sestamibi was injected at rest. The patient exercised for 8-1/2 minutes and at peak exercise 32.1 mCi of technetium 99m sestamibi was injected stress images were obtained stress and rest images were reconstructed in comparing the short axis vertical and horizontal long axis. Gated images were also obtained Perfusion SPECT analysis: Review of the stress images demonstrate normal uptake of tracer noted in all areas of the myocardium. The resting images similarly demonstrate normal uptake of tracer noted in all areas of the myocardium. No areas of reversibility are noted suggest ischemia. Gated SPECT analysis: The gated ejection fraction is noted to be 77%. Conclusion: Normal exercise myocardial perfusion stress test at a high workload. Preserved ejection fraction.
== END ==
PROVIDERS: Family Provider Family Medicine; PCP Family Medicine; Referring Provider Nurse Practitioner Family; Visit Provider Nurse Practitioner Family
DX: E78.5 Hyperlipidemia, unspecified (principal); G47.10 Hypersomnia, unspecified; I25.10 Atherosclerotic heart disease of native coronary artery without angina pectoris; I25.2 Old myocardial infarction; I12.9 Hypertensive chronic kidney disease with stage 1 through stage 4 chronic kidney disease, or unspecified chronic kidney disease; N18.3 Chronic kidney disease, stage 3 (moderate); J44.9 Chronic obstructive pulmonary disease, unspecified; R00.2 Palpitations; R42 Dizziness and giddiness; Z95.5 Presence of coronary angioplasty implant and graft; Z72.0 Tobacco use
CPT/HCPCS: 78452; 93017; 93880; A9500; A4216

== ENCOUNTER → 2019-05-04 06:45 | Outpatient (CLI) | payer OTHER, SELFPAY ==
[2019-05-04 07:50] LABS: AST(SGOT) 17 U/L (15-37); Alanine Aminotransfer ALT/SGPT 16 U/L (13-56); Albumin, Serum 3.3 g/dL (3.2-5.0); Alkaline Phosphatase 92 U/L (45-117); Anion Gap 8 (5-15); BUN 35 mg/dL (7-18); BUN/Creat Ratio 19.1 RATIO (10-20); Bilirubin, Direct 0.11 mg/dL (0.00-0.30); Calcium,Total 8.9 mg/dL (8.5-10.1); Chloride 104 mmol/L (98-107); Cholesterol 179 mg/dL (200); Creatinine, Serum 1.83 mg/dL (0.55-1.02); EST Glomerular Filtration Rate 30 mL/min (>60); Est Glom Filt Rate - Afr Amer 36 mL/min (>60); Globulin 3.3 g/dL (2.2-4.2); Glucose 254 mg/dL (74-106); High Density Lipoprotein 63 mg/dL; Phosphorus 3.9 mg/dL (2.5-4.9); Potassium 5.2 mmol/L (3.5-5.1); Protein, Total 6.6 g/dL (6.4-8.2); Sodium Level 139 mmol/L (136-145); Triglycerides 176 mg/dL; Very Low Density Lipoprotein 35 mg/dL (5-40)
== END ==
LOC: LAB 06:48
PROVIDERS: Internal Medicine Cardiovascular Disease; Family Provider Family Medicine; PCP Family Medicine; Referring Provider Internal Medicine Nephrology; Visit Provider Internal Medicine Nephrology
DX: E78.5 Hyperlipidemia, unspecified (principal); I25.10 Atherosclerotic heart disease of native coronary artery without angina pectoris; I12.9 Hypertensive chronic kidney disease with stage 1 through stage 4 chronic kidney disease, or unspecified chronic kidney disease; N18.3 Chronic kidney disease, stage 3 (moderate)
CPT/HCPCS: 36415; 80048; 80061; 80076; 84100

== ENCOUNTER → 2019-06-14 06:42 | Outpatient (CLI) | payer OTHER, SELFPAY ==
[2019-06-14 08:00] LABS: AST(SGOT) 12 U/L (15-37); Alanine Aminotransfer ALT/SGPT 16 U/L (13-56); Albumin, Serum 3.4 g/dL (3.2-5.0); Alkaline Phosphatase 97 U/L (45-117); Anion Gap 10 (5-15); BUN 42 mg/dL (7-18); BUN/Creat Ratio 21.1 RATIO (10-20); Calcium,Total 8.9 mg/dL (8.5-10.1); Chloride 101 mmol/L (98-107); Creatinine, Serum 1.99 mg/dL (0.55-1.02); EST Glomerular Filtration Rate 27 mL/min (>60); Est Glom Filt Rate - Afr Amer 33 mL/min (>60); Globulin 3.5 g/dL (2.2-4.2); Glucose 196 mg/dL (74-106); Phosphorus 4.6 mg/dL (2.5-4.9); Potassium 4.4 mmol/L (3.5-5.1); Protein, Total 6.9 g/dL (6.4-8.2); Sodium Level 137 mmol/L (136-145); T4 Free Direct 0.96 ng/dL (0.76-1.46); Thyroid Stim Hormone (TSH) 1.67 uIU/mL (0.358-3.74)
[2019-06-14 08:10] LABS: Protein, Urine (Random) 81.5 mg/dL (<11.9); Protein:Creat Ratio 1185 mg/g CRE (0-200)
[2019-06-14 09:52] LABS: Vitamin D,25 Hydroxy 103.7 ng/mL (29.95-100.01)
[2019-06-16 11:27] LABS: C-Peptide < 0.1 ng/mL (1.1-4.4)
== END ==
LOC: LAB.FUTURE 06:45
PROVIDERS: Family Provider Family Medicine; PCP Family Medicine; Referring Provider Internal Medicine Nephrology; Visit Provider Internal Medicine Nephrology
DX: N17.9 Acute kidney failure, unspecified (principal); E10.22 Type 1 diabetes mellitus with diabetic chronic kidney disease; E10.649 Type 1 diabetes mellitus with hypoglycemia without coma
CPT/HCPCS: 36415; 80053; 82043; 82306; 82570; 84100; 84156; 84439; 84443; 84681

== ENCOUNTER → 2019-08-10 13:13 | Outpatient (CLI) | payer OTHER, SELFPAY ==
[2019-08-10 13:34] LABS: Hemoglobin 12.6 g/dL (12.0-15.0)
[2019-08-10 13:44] LABS: Albumin, Serum 3.4 g/dL (3.2-5.0); BUN 49 mg/dL (7-18); Calcium,Total 9.2 mg/dL (8.5-10.1); Chloride 100 mmol/L (98-107); Creatinine, Serum 2.23 mg/dL (0.55-1.02); EST Glomerular Filtration Rate 24 mL/min (>60); Est Glom Filt Rate - Afr Amer 29 mL/min (>60); Glucose 145 mg/dL (74-106); Phosphorus 3.9 mg/dL (2.5-4.9); Potassium 5.3 mmol/L (3.5-5.1); Sodium Level 138 mmol/L (136-145)
[2019-08-10 14:15] LABS: PTHIN 42.7 pg/mL (18.4-80.1)
== END ==
LOC: POLAB3 13:13
PROVIDERS: Family Provider Family Medicine; PCP Family Medicine; Visit Provider Internal Medicine Nephrology
DX: N17.9 Acute kidney failure, unspecified (principal); N25.81 Secondary hyperparathyroidism of renal origin
CPT/HCPCS: 36415; 80069; 83970; 85018

== ENCOUNTER → 2019-08-13 06:58 | Outpatient (CLI) | payer OTHER, SELFPAY ==
[2019-08-13 07:52] LABS: Albumin, Serum 3.3 g/dL (3.2-5.0); BUN 41 mg/dL (7-18); BUN/Creat Ratio 19.8 RATIO (10-20); Calcium,Total 9.1 mg/dL (8.5-10.1); Chloride 98 mmol/L (98-107); Creatinine, Serum 2.07 mg/dL (0.55-1.02); EST Glomerular Filtration Rate 26 mL/min (>60); Est Glom Filt Rate - Afr Amer 31 mL/min (>60); Glucose 203 mg/dL (74-106); Phosphorus 3.5 mg/dL (2.5-4.9); Potassium 5.1 mmol/L (3.5-5.1); Sodium Level 134 mmol/L (136-145)
== END ==
LOC: LAB.FUTURE 06:59 → LAB 07:01
PROVIDERS: Family Provider Family Medicine; PCP Family Medicine; Referring Provider Internal Medicine Nephrology; Visit Provider Internal Medicine Nephrology
DX: N18.4 Chronic kidney disease, stage 4 (severe) (principal)
CPT/HCPCS: 36415; 80069

== ENCOUNTER → 2019-08-30 10:40 | Outpatient (CLI) | payer OTHER, SELFPAY ==
--- NOTE | 2019-08-30 10:45 | NM_ITS ---
CLINICAL: 58-year-old diabetic female with reported history of nausea, abdominal pain and bloating. SEMI-SOLID PHASE 99m Tc SULFUR COLLOID GASTRIC EMPTYING STUDY COMPARISON: None available FINDINGS: The patient was administered 1.2 mCi of 99m Tc sulfur colloid mixed with oatmeal and consumed per os. Image acquisitions in the anterior-posterior projections for a total of 60 minutes. There is prompt visualization of the stomach. There is no gastroesophageal reflux identified. First order kinetics are maintained throughout the duration of the acquisitions. The T1/2 linear fit was calculated to be 227.42 minutes, (Normal: 12-56 minutes). NM/Gastric Emptying Study IMPRESSION: 1. ABNORMAL 99m Tc sulfur colloid semi-solid phase (oatmeal) gastric emptying imaging examination. A. There is delayed semi-solid phase gastric emptying compared to normal controls with maintained first order kinetics throughout all components of the examination. (Mauricio luis al, J Nucl Med Tech 38: 186, 2010). Electronically Signed: Jose Kaye DO at 23:30 EDT Tel , Service support ,
== END ==
PROVIDERS: Family Provider Family Medicine; PCP Family Medicine; Referring Provider Internal Medicine Endocrinology, Diabetes & Metabolism; Visit Provider Internal Medicine Endocrinology, Diabetes & Metabolism
DX: K31.84 Gastroparesis (principal); R11.0 Nausea
CPT/HCPCS: 78264; A9541

== ENCOUNTER → 2019-10-12 06:41 | Outpatient (CLI) | payer OTHER, SELFPAY ==
[2019-10-12 08:16] LABS: Vitamin D,25 Hydroxy 44.2 ng/mL (29.95-100.01)
[2019-10-12 08:21] LABS: AST(SGOT) 13 U/L (15-37); Alanine Aminotransfer ALT/SGPT 16 U/L (13-56); Albumin, Serum 3.5 g/dL (3.2-5.0); Alkaline Phosphatase 80 U/L (45-117); Anion Gap 4 (5-15); BUN 40 mg/dL (7-18); Calcium,Total 9.2 mg/dL (8.5-10.1); Chloride 105 mmol/L (98-107); EST Glomerular Filtration Rate 27 mL/min (>60); Est Glom Filt Rate - Afr Amer 33 mL/min (>60); Globulin 3.5 g/dL (2.2-4.2); Glucose 159 mg/dL (74-106); Potassium 4.5 mmol/L (3.5-5.1); Sodium Level 140 mmol/L (136-145); Thyroid Stim Hormone (TSH) 2.35 uIU/mL (0.358-3.74)
[2019-10-12 08:47] LABS: Hemoglobin A1c 8.6 % (4.2-6.3)
[2019-10-12 09:08] LABS: Microalbumin:Creatinine Ratio 690.4 mg/g CRE (<30 mg/g CRE)
== END ==
PROVIDERS: Family Provider Family Medicine; PCP Family Medicine; Referring Provider Internal Medicine Endocrinology, Diabetes & Metabolism; Visit Provider Internal Medicine Endocrinology, Diabetes & Metabolism
DX: E10.49 Type 1 diabetes mellitus with other diabetic neurological complication (principal)
CPT/HCPCS: 36415; 80053; 82043; 82306; 82570; 83036; 84443

== ENCOUNTER → 2019-11-15 06:47 | Outpatient (CLI) | payer OTHER, SELFPAY ==
[2019-11-15 08:16] LABS: Protein:Creat Ratio 853 mg/g CRE (0-200)
[2019-11-15 08:31] LABS: AST(SGOT) 10 U/L (15-37); Alanine Aminotransfer ALT/SGPT 15 U/L (13-56); Albumin, Serum 3.4 g/dL (3.2-5.0); Alkaline Phosphatase 70 U/L (45-117); Anion Gap 4 (5-15); BUN 41 mg/dL (7-18); BUN/Creat Ratio 19.3 RATIO (10-20); Calcium,Total 9.2 mg/dL (8.5-10.1); Chloride 107 mmol/L (98-107); Cholesterol 140 mg/dL (200); Creatinine, Serum 2.12 mg/dL (0.55-1.02); EST Glomerular Filtration Rate 25 mL/min (>60); Est Glom Filt Rate - Afr Amer 31 mL/min (>60); Globulin 3.3 g/dL (2.2-4.2); Glucose 93 mg/dL (74-106); High Density Lipoprotein 52 mg/dL; Phosphorus 4.1 mg/dL (2.5-4.9); Potassium 4.7 mmol/L (3.5-5.1); Protein, Total 6.7 g/dL (6.4-8.2); Sodium Level 141 mmol/L (136-145); Triglycerides 81 mg/dL; Very Low Density Lipoprotein 16 mg/dL (5-40)
[2019-11-15 09:14] LABS: PTHIN 90.8 pg/mL (18.4-80.1)
[2019-11-15 09:16] LABS: Vitamin D,25 Hydroxy 58.3 ng/mL (29.95-100.01)
== END ==
LOC: LAB.FUTURE 06:50 → LAB 06:57
PROVIDERS: Internal Medicine Cardiovascular Disease; Family Provider Family Medicine; PCP Family Medicine; Referring Provider Internal Medicine Nephrology; Visit Provider Internal Medicine Nephrology
DX: N18.4 Chronic kidney disease, stage 4 (severe) (principal); N25.81 Secondary hyperparathyroidism of renal origin; R80.9 Proteinuria, unspecified; E78.5 Hyperlipidemia, unspecified
CPT/HCPCS: 36415; 80048; 80061; 80076; 82306; 82570; 83970; 84100; 84156

== ENCOUNTER → 2019-12-01 06:50 | Outpatient (CLI) | payer OTHER, SELFPAY ==
[2019-11-19 09:44] VITALS: BMI 17.9
[2019-12-01 08:28] LABS: Anion Gap 5 (5-15); BUN 30 mg/dL (7-18); BUN/Creat Ratio 16.2 RATIO (10-20); Calcium,Total 9.5 mg/dL (8.5-10.1); Chloride 106 mmol/L (98-107); Creatinine, Serum 1.85 mg/dL (0.55-1.02); EST Glomerular Filtration Rate 30 mL/min (>60); Est Glom Filt Rate - Afr Amer 36 mL/min (>60); Glucose 110 mg/dL (74-106); Potassium 4.5 mmol/L (3.5-5.1); Sodium Level 140 mmol/L (136-145)
== END ==
PROVIDERS: PCP Family Medicine; Referring Provider Internal Medicine Nephrology; Visit Provider Internal Medicine Nephrology
DX: E10.22 Type 1 diabetes mellitus with diabetic chronic kidney disease (principal); N18.4 Chronic kidney disease, stage 4 (severe)
CPT/HCPCS: 36415; 80048

== ENCOUNTER → 2020-02-16 07:19 | Outpatient (CLI) | payer OTHER, SELFPAY ==
[2019-12-31 10:53] VITALS: BMI 17.2
[2020-02-16 08:06] LABS: Hematocrit 39.2 % (37-47); Hemoglobin 12.4 g/dL (12.0-15.0); Mean Corp Hgb Conc 31.6 g/dL (32-36); Mean Corpuscular Hgb 29.7 pg (27.0-32.0); Mean Corpuscular Volume 93.8 fL (81-99); Mean Platelet Vol. 10.5 fl (6.2-12.0); Platelet Count 216 K/mm3 (150-450); RBC Distribution Width SD 44.6 fl (35.1-43.9); Red Blood Count 4.18 M/mm3 (4.2-5.4); White Blood Count 8.1 K/mm3 (4.4-11.0)
[2020-02-16 08:28] LABS: Albumin, Serum 3.3 g/dL (3.2-5.0); BUN 38 mg/dL (7-18); Calcium,Total 8.7 mg/dL (8.5-10.1); Chloride 106 mmol/L (98-107); Creatinine, Serum 1.73 mg/dL (0.55-1.02); EST Glomerular Filtration Rate 32 mL/min (>60); Est Glom Filt Rate - Afr Amer 39 mL/min (>60); Glucose 155 mg/dL (74-106); Phosphorus 4.1 mg/dL (2.5-4.9); Potassium 4.7 mmol/L (3.5-5.1); Sodium Level 138 mmol/L (136-145)
== END ==
PROVIDERS: PCP Family Medicine; Referring Provider Internal Medicine Nephrology; Visit Provider Internal Medicine Nephrology
DX: N18.4 Chronic kidney disease, stage 4 (severe) (principal)
CPT/HCPCS: 36415; 80069; 85027

== ENCOUNTER → 2020-05-18 | Outpatient (CLI) | payer OTHER, SELFPAY ==
[2019-12-31 10:53] VITALS: BMI 17.2
== END | disposition home or self-care (01) ==
PROVIDERS: PCP Family Medicine; Referring Provider Nurse Practitioner Family; Visit Provider Nurse Practitioner Family
DX: Z03.818 Encounter for observation for suspected exposure to other biological agents ruled out (principal)
CPT/HCPCS: 87635; U0003

== ENCOUNTER → 2020-07-28 06:51 | Outpatient (CLI) | payer OTHER, SELFPAY ==
[2019-12-31 10:53] VITALS: BMI 17.2
[2020-07-28 07:27] LABS: Erythrocyte Sedimentation Rate 6 mm/hr (0-30)
[2020-07-28 07:39] LABS: Hemoglobin A1c 7.6 % (3.8-5.6)
[2020-07-28 07:59] LABS: CRP < 2.90 mg/L (0.0-3.0); Rheumatoid Factor < 10.0 IU/mL (<15); Uric Acid 5.1 mg/dL (2.6-6.0)
[2020-07-28 08:10] LABS: AST(SGOT) 13 U/L (15-37); Alanine Aminotransfer ALT/SGPT 15 U/L (13-56); Albumin, Serum 3.4 g/dL (3.2-5.0); Alkaline Phosphatase 72 U/L (45-117); Anion Gap 4 (5-15); BUN 30 mg/dL (7-18); BUN/Creat Ratio 17.6 RATIO (10-20); Bilirubin, Direct 0.11 mg/dL (0.00-0.30); Calcium,Total 8.9 mg/dL (8.5-10.1); Chloride 107 mmol/L (98-107); Cholesterol 139 mg/dL (200); EST Glomerular Filtration Rate 33 mL/min (>60); Est Glom Filt Rate - Afr Amer 39 mL/min (>60); Globulin 3.4 g/dL (2.2-4.2); Glucose 69 mg/dL (74-106); High Density Lipoprotein 62 mg/dL; Potassium 4.3 mmol/L (3.5-5.1); Protein, Total 6.8 g/dL (6.4-8.2); Sodium Level 140 mmol/L (136-145); Thyroid Stim Hormone (TSH) 2.47 uIU/mL (0.358-3.74); Triglycerides 125 mg/dL; Very Low Density Lipoprotein 25 mg/dL (5-40)
[2020-07-31 01:41] LABS: ANTINUCLEAR ANTIBODIES DIRECT Positive (Negative)
== END ==
PROVIDERS: Internal Medicine Cardiovascular Disease; PCP Family Medicine; Referring Provider Family Medicine; Visit Provider Family Medicine
DX: E10.65 Type 1 diabetes mellitus with hyperglycemia (principal); E10.649 Type 1 diabetes mellitus with hypoglycemia without coma; E10.41 Type 1 diabetes mellitus with diabetic mononeuropathy; E78.00 Pure hypercholesterolemia, unspecified; K31.84 Gastroparesis; M25.50 Pain in unspecified joint; Z79.4 Long term (current) use of insulin; Z96.41 Presence of insulin pump (external) (internal)
CPT/HCPCS: 36415; 80053; 80061; 82043; 82248; 83036; 84443; 84550; 85652; 86038; 86140; 86431

== ENCOUNTER 2020-08-26 18:30 | Inpatient (IN) | payer OTHER, SELFPAY ==
[2019-12-31 10:53] VITALS: BMI 17.2
[2020-08-26] VITALS (8 sets, daily range): BP systolic 80–104; BP diastolic 38–46; PULSE 74–89; RESP 12–18; TEMP 36.2–36.6; O2SAT 91–100; BMI 17.2; BMI 17.3; BMI 17.4
--- NOTE | 2020-08-26 18:42 | RAD_ITS ---
STUDY: X-RAY CHEST REASON FOR EXAM: Female, 59 years old. Chest pain and nausea TECHNIQUE: Single AP portable view of the chest. COMPARISON: 06/21/2018. FINDINGS: The lungs are hyperexpanded. There are coarsened interstitial markings suggestive of mild chronic fibrosis. No gross focal infiltrates. No gross effusions. Normal size heart. Normal mediastinum and angelita. Normal visualized pulmonary arteries. Normal visualized aortic arch and descending thoracic aorta. Normal visualized thoracic spine. Normal visualized ribs, clavicles, and shoulders. There is no demonstrated abnormality of the visualized soft tissue structures of the upper abdomen. RAD/Chest 1 View (Portable) IMPRESSION: There are findings consistent with COPD. There is no evidence of acute chest disease. Electronically Signed: Gorge Prince MD at 19:19 EDT , Service support ,
--- NOTE | 2020-08-26 18:42 | EKG12_ITS ---
Test Reason : CP Blood Pressure : / mmHG Vent. Rate : 073 BPM Atrial Rate : 073 BPM P-R Int : 154 ms QRS Dur : 084 ms QT Int : 394 ms P-R-T Axes : 078 -79 080 degrees QTc Int : 434 ms Normal sinus rhythm Left axis deviation Septal infarct , age undetermined Abnormal ECG Confirmed by MODESTO DAIGLE, NICOLA ([id number]), legal editor ARNALDO FENTON ([id number]) on 08/29/2020 10:24:13 AM Referred By: RON Confirmed By:NICOLA SALVADOR MD
[2020-08-26] MEDS: 0.9% Normal Saline 1,000 ML 999 ML IV ×2 (18:47→19:26)
[2020-08-26] MEDS: Aspirin 81 MG TAB.CHEW 324 MG PO (18:48)
--- NOTE | 2020-08-26 18:48 | ED.VISSUMM ---
- ER Visit Summary Date of Service: 08/26/20 Chief Complaint: Chest pain History of Present Illness: The patient is a 59 F presenting with chest pain. She states this started this morning. She had intermittent pain throughout the day. Pain is sharp in the mid chest. She said at worst it was 9 out of 10. Currently 2 out of 10. She states she took 2 nitro this morning. She then took another 2 nitro this evening. States the nitro did improve her symptoms. She complains of associated shortness of breath, nausea, vomiting, diaphoresis. She has a history of previous MN with 2 stents in 2018. She does admit to increased stress. Physical Examination: Vitals are stable. Blood pressure 84/39. Patient is afebrile. Alert no acute distress. HEENT exam is unremarkable. Neck is supple. Lungs are clear and equal bilaterally. Heart is regular rate and rhythm. Abdomen is soft nontender nondistended. Extremities are unremarkable. Skin is warm and dry. No focal neurologic deficit. Remainder of exam is unremarkable. Emergency Department Course and Treatment: Patient was given IV fluids, aspirin. EKG is sinus rhythm rate of 73 with no acute ischemic changes. CBC shows a white count 11.4. Chemistries show potassium 5.9, glucose 361, BUN 54, creatinine 3.32. Troponin 0.05. Chest x-ray shows COPD. On reevaluation, patient is chest pain-free. She was given IV fluids. She was given insulin and albuterol for hyperkalemia. Will discuss with hospitalist for admission. Disposition: Observation Impression: Chest pain, acute on chronic kidney injury, hypotension, hyperkalemia This note was generated with [employer] dictation software. It may contain incorrect words, spelling, and punctuation that were not noted in review of the chart prior to signing ED Disposition - Plan for ED Patient: Referrals: Sin Lujan MD [Primary Care Provider] -
[2020-08-26 18:51] LABS: Absolute Lymphocyte Count 2.15 X10^3/uL (0.83-4.51); Absolute Neutrophil Count 7.4 X10^3/uL (2.0-7.7); Basophil# 0.08 X10^3/uL; Basophil% 0.7 % (0-1); Eosinophil# 0.35 X10^3/uL; Eosinophils% 3.1 % (0-5); Hematocrit 36.9 % (37-47); Hemoglobin 11.5 g/dL (12.0-15.0); Lymphocyte # 2.15 X10^3/ul (4.0); Lymphocyte % 18.9 % (19-41); Mean Corp Hgb Conc 31.2 g/dL (32-36); Mean Corpuscular Volume 96.3 fL (81-99); Mean Platelet Vol. 10.2 fl (6.2-12.0); Monocyte# 1.35 X10^3/uL; Monocyte% 11.9 % (0-10); NRBC Flagged by Analyzer 0 % (0-5); Neutrophil # 7.38 X10^3/uL (2.7-7.7); Platelet Count 220 K/mm3 (150-450); RBC Distribution Width CV 12.6 % (11.6-14.6); RBC Distribution Width SD 44.5 fl (35.1-43.9); Red Blood Count 3.83 M/mm3 (4.2-5.4); White Blood Count 11.4 K/mm3 (4.4-11.0)
[2020-08-26 19:09] LABS: Anion Gap 15 (5-15); BUN 54 mg/dL (7-18); BUN/Creat Ratio 16.3 RATIO (10-20); Calcium,Total 9.1 mg/dL (8.5-10.1); Chloride 98 mmol/L (98-107); Creatinine, Serum 3.32 mg/dL (0.55-1.02); EST Glomerular Filtration Rate 15 mL/min (>60); Est Glom Filt Rate - Afr Amer 18 mL/min (>60); Estimated Creatinine Clearance 13.81 ml/min; Glucose 361 mg/dL (74-106); Potassium 5.9 mmol/L (3.5-5.1); Sodium Level 132 mmol/L (136-145)
--- NOTE | 2020-08-26 19:22 | HP.PCM_ITS ---
Problem List (1) Chest pain Status: Acute Qualifiers: Chest pain type: unspecified Qualified Code(s): R07.9 - Chest pain, unspecified (2) Chronic obstructive pulmonary disease Status: Chronic Qualifiers: COPD type: unspecified COPD Qualified Code(s): J44.9 - Chronic obstructive pulmonary disease, unspecified (3) Atherosclerosis of coronary artery of [place] heart without angina pectoris Status: Chronic Qualifiers: Coronary Disease-Associated Artery/Lesion type: [place] artery Qualified Code(s): I25.10 - Atherosclerotic heart disease of [place] coronary artery without angina pectoris Comment: PCI-MIESHA-Mid RCA w/ 2.5 x 28 mm Promus Synergy 01/15/2018; PCI-MIESHA-Mid LCx w/ 3.0 x 16 mm Promus Synergy 02/04/2018 (4) History of coronary artery stent placement Status: Chronic Comment: PCI-MIESHA-Mid RCA w/ 2.5 x 28 mm Promus Synergy 01/15/2018; PCI-MIESHA-Mid LCx w/ 3.0 x 16mm Promus Synergy 02/04/2018 (5) NSTEMI (non-ST elevated myocardial infarction) Status: Resolved (6) Essential (primary) hypertension Status: Chronic (7) Hyperlipidemia Status: Chronic Qualifiers: Hyperlipidemia type: pure hypercholesterolemia Qualified Code(s): E78.00 - Pure hypercholesterolemia, unspecified; E78.0 - Pure hypercholesterolemia (8) Nicotine dependence Status: Chronic Qualifiers: Nicotine product type: cigarettes Substance use status: uncomplicated Qualified Code(s): F17.210 - Nicotine dependence, cigarettes, uncomplicated History of Present Illness Date of Admission: 08/26/20 Chief Complaint: Chest pain, nausea The patient is a 59 y/o F w/ PMHx: Chronic normocytic anemia, CAD s/p PCI-MIESHA-Mid RCA w/ 2.5 x 28 mm Promus Synergy 01/15/2018; PCI-MIESHA-Mid LCx w/ 3.0 x 16 mm Promus Synergy 02/04/2018, Chronic COPD, HTN, HLD, Tobacco use, Depression and Anxiety, CKD stage III, Diabetes mellitus type 1 who presents to the [facility] ED on 08/26/20 with history of onset chest pain at 6:40 am on day of presentation, noted to be sharp, stabbing, mid-chest initially without radiation, rated 9/10 at its worst with associated nausea, emesis but patient denied diaphoresis and dyspnea, prompting her to take home NG x 2 with improvement in chest discomfort but ongoing fatigue, malaise, nausea and inability to maintain oral intake with recurrent chest pain at ~ 6:30 pm with associated LUE radiation and discomfort between her shoulder blades prompting her to take an additional 2 NG and presenting to the ED for evaluation. Upon evaluation patient noted still having some discomfort between her shoulder blades, currently rated 5-6 out of 10 in severity but improved from the initial recurrent 6:30 pm chest pain. She denies any recent fever, chills, abdominal pain or cramping, diarrhea, body aches, rhinorrhea, congestion, altered cough, dyspnea, alteration to sense of taste or smell or any specific ill Covid contacts. She has been under increased stress secondary to family conflicts and initially though her symptoms were secondary to anxiety. Work-up in the ED included T 97.8, heart 76, BP 84/39, respiratory rate 18, 96% on room air, CBC with WC 11.4, hemoglobin 11.5, platelet 220 without marked shift, BMP with sodium 132, potassium 5.9, BUN/creatinine 54/3.32, glucose 361, troponin 0.050 EKG with sinus rhythm with no acute evidence of ischemia with peak T waves. In the ED patient ministered normal saline, albuterol, aspirin 324 mg p.o. x1 as well as 5 unit insulin IV x1. Past Medical History Past Medical History (Chronic Problems): Chronic Problems (Last Reviewed 11/19/19 @ 10:29 by Radha BHARDWAJ, PA) Chronic obstructive pulmonary disease (Chronic) Dizziness (Chronic) Intermittent palpitations (Chronic) Atherosclerosis of coronary artery of [place] heart without angina pectoris (Chronic) PCI-MIESHA-Mid RCA w/ 2.5 x 28 mm Promus Synergy 01/15/2018; PCI-MIESHA-Mid LCx w/ 3.0 x 16 mm Promus Synergy 02/04/2018 History of coronary artery stent placement (Chronic 02/04/18) PCI-MIESHA-Mid RCA w/ 2.5 x 28 mm Promus Synergy 01/15/2018; PCI-MIESHA-Mid LCx w/ 3.0 x 16mm Promus Synergy 02/04/2018 Essential (primary) hypertension (Chronic) Hyperlipidemia (Chronic) Nicotine dependence (Chronic) Medical History: Medical History (Last Reviewed 11/19/19 @ 10:29 by Radha Sandhu PA, PA) Atherosclerosis of coronary artery of [place] heart without angina pectoris (Chronic) I25.10 PCI-MIESHA-Mid RCA w/ 2.5 x 28 mm Promus Synergy 01/15/2018; PCI-MIESHA-Mid LCx w/ 3.0 x 16 mm Promus Synergy 02/04/2018 NSTEMI (non-ST elevated myocardial infarction) (Resolved) Onset Date: 01/12/18 I21.4 Essential (primary) hypertension (Chronic) I10 Hyperlipidemia (Chronic) E78.5 Nicotine dependence (Chronic) F17.200 Anxiety F41.9 CKD (chronic kidney disease) stage 3, GFR 30-59 ml/min COPD (chronic obstructive pulmonary disease) J44.9 DM type 1 (diabetes mellitus, type 1) Dx : 1999 Last exacerbation : DKA : 01/18 Hypoglycemic episode : never ER visit : 01/18 Depression F32.9 Hypersomnia G47.10 Allergies No Known Allergies Allergy (Verified 08/26/20 18:33) Home Medications: Ambulatory Orders Medication Instructions Recorded Albuterol IH (ProAir) [Proair Hfa] 2 puff INHALATION Q6H PRN PRN 06/21/18 Ergocalciferol [Vitamin D] 50,000 unit PO Q7D 06/21/18 Gabapentin [Neurontin] 300 mg PO QHS 06/21/18 Simvastatin [Zocor] 40 mg PO QHS 06/21/18 Tiotropium [place] [Spiriva] 18 mcg IH DAILY 06/21/18 Albuterol Aerosols [Ventolin 2.5 mg INHALATION Q2H PRN PRN #1 06/23/18 Aerosols] box losartan 25 mg tablet 25 mg PO DAILY 11/19/19 metoprolol tartrate 50 mg tablet 50 mg PO BID #180 tab 11/19/19 nitroglycerin 0.4 mg sublingual 0.4 mg SUBLINGUAL Q5-15M PRN #25 11/19/19 tablet tab aspirin 81 mg tablet,delayed 81 mg PO DAILY 12/31/19 release clopidogrel 75 mg tablet 75 mg PO DAILY #90 tab 12/31/19 Insulin Basal Pump (Pt's Own) 0 unit SC UD 08/26/20 [Pump, Basal] Surgical History: Surgical History (Last Reviewed 11/19/19 @ 10:29 by Radha BHARDWAJ, PA) History of coronary artery stent placement (Chronic) Onset Date: 02/04/18 Z95.5 PCI-MIESHA-Mid RCA w/ 2.5 x 28 mm Promus Synergy 01/15/2018; PCI-MIESHA-Mid LCx w/ 3.0 x 16mm Promus Synergy 02/04/2018 H/O: Z98.891 H/O: hysterectomy Z90.710 Hx of appendectomy Z90.49 Surgical History: appendectomy, hysterectomy, - - . 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 Tobacco Use: Cigarettes Alcohol: None Drugs: None - *Family History Maternal Family History: Family History (Last Reviewed 11/19/19 @ 10:29 by Radha BHARDWAJ, PA) Mother Heart disease COPD (chronic obstructive pulmonary disease) Lupus Daughter Growth disorder Down syndrome Fibromyalgia Grandfather Colon cancer Diabetes Grandmother Heart disease CVA (cerebral vascular accident) Diabetes Pulmonary disease Sister Hypertension Kidney disease History Items: High Cholesterol, Heart Disease, Hypertension, Pulmonary Disease, - - Lupus. Paternal Family History: Family History (Last Reviewed 11/19/19 @ 10:29 by Radha BHARDWAJ, PA) Mother Heart disease COPD (chronic obstructive pulmonary disease) Lupus Daughter Growth disorder Down syndrome Fibromyalgia Grandfather Colon cancer Diabetes Grandmother Heart disease CVA (cerebral vascular accident) Diabetes Pulmonary disease Sister Hypertension Kidney disease History Items: Heart Disease Review of Systems Constitutional: Reports: Anorexia, Malaise, Weakness, Fatigue. Denies: Chills, Fever, Weight Change HEENT: Denies: Head Aches, Sinus Congestion, Sinus Drainage Cardiovascular: Reports: Chest Pain. Denies: Chest Pressure, Chest Tightness, Orthopnea, Palpitations, Paroxysmal Noc. Dyspnea, Syncope Respiratory: Denies: Cough, Shortness of Breath, Shortness of breath at rest, Shortness of breath upon exertion, Sputum production Gastrointestinal: Reports: Nausea, Vomiting. Denies: Abdominal Pain Genitourinary: Denies: Dysuria Musculoskeletal: Reports: Back Pain. Denies: Joint Pain, Joint Tenderness Skin: Denies: Rash, Wounds Neurological: Denies: Numbness, Tingling, Focal weakness Psychiatric: Reports: Anxiety, Depression. Denies: Homicidal Ideations, Suicidal Ideations Hematologic/ Lymphatic: Reports: Anemia. Denies: Easy Bruising, Easy Bleeding VTE Information - Inpt Only VTE Present on Admission: No VTE Mechan Device Prophylaxis: SCD's VTE Pharm Prophylaxis ordered?: Yes Patient Problems: Active and Suspected Problems (Last Reviewed 11/19/19 @ 10:29 by Radha BHARDWAJ, PA) Chest pain (Acute) Subjective: Patient laying in the ED bed, fatigued appearing, notes chest discomfort has improved but still discomfort between her shoulder blades. Objective: Physical Examination: General: awake, alert, oriented x 3 and cooperative, bed, appears uncomfortable, fatigued. Skin: normal color, turgor, no icterus, cyanosis. HEENT: AT/NC, EOMI, PERRLA, dry MM, no carotid bruits or JVD noted. Lungs: Diminished breath sounds, greater bases, no obvious distress, no rales, ronchi or wheezing. Heart: Regular rate and rhythm; no gallop, rub audible. Abdomen: soft, mild generalized discomfort which she attributed to muscle soreness from nausea and emesis, nondistended, normal bowel sounds currently, no obvious HSM. Extremities: no cyanosis, clubbing, or edema. Neurological: patient awake, alert, oriented x 3; cognitive function intact; pupils equally reactive to light and accomodation; cranial nerves II-XII grossly normal, moving all 4 extremities, no focal deficits, strength moderately to severely global decrease secondary to acute presentation. Psychiatric: affect appears fatigued, uncomfortable appearing, no acute evidence of depressive or anxiety feelings. - Physical Exam Vitals/I&O's: Vital Signs Temp Pulse Resp BP Pulse Ox 97.8 F 74 12 80/46 L 100 08/26/20 18:31 08/26/20 18:43 08/26/20 18:43 08/26/20 18:43 08/26/20 18:43 Oxygen Delivery Method Room Air Weight: 107 lb Body Mass Index (BMI) 17.2 Finger Stick Blood Glucose 288 Laboratory Results 08/26/20 18:45: WBC 11.4 H, RBC 3.83 L, Hgb 11.5 L, Hct 36.9 L, MCV 96.3, MCH 30.0, MCHC 31.2 L, RDW Std Deviation 44.5 H, RDW Coeff of Iron 12.6, Plt Count 220, MPV 10.2, Immature Gran % (Auto) 0.400, Neut % (Auto) 65.0, Lymph % (Auto) 18.9 L, [place] % (Auto) 11.9 H, Eos % (Auto) 3.1, Baso % (Auto) 0.7, Absolute Neuts (auto) 7.4, Absolute Lymphs (auto) 2.15, Nucleated RBC % 0 08/26/20 18:45: Sodium 132 L, Potassium 5.9 H, Chloride 98, Carbon Dioxide 19.0 L, Anion Gap 15, BUN 54 H, Creatinine 3.32 H, Estim Creat Clear Calc 13.81, Est GFR (MDRD) Af Amer 18 L, Est GFR (MDRD) Non-Af 15 L, BUN/Creatinine Ratio 16.3, Glucose 361 H, Calcium 9.1, Troponin I 0.050 H Current Medications Sodium Chloride () 1,000 mls @ 999 mls/hr IV .Q1H1M ONE Stop: 08/26/20 19:43 Last Admin: 08/26/20 18:47 Dose: 999 mls/hr Documented by: Sodium Chloride () 1,000 mls @ 999 mls/hr IV .Q1H1M ONE Stop: 08/26/20 20:17 Assessment/Plan All Active Problems (Last Reviewed 11/19/19 @ 10:29 by Radha Sandhu PA, PA) Chest pain (Acute) NSTEMI (non-ST elevated myocardial infarction) (Resolved 01/12/18) DKA (diabetic ketoacidoses) (Resolved) Intractable nausea and vomiting (Resolved) Ketoacidosis (Resolved) The patient is a 59 y/o F w/ PMHx: Chronic normocytic anemia, CAD s/p PCI-MIESHA-Mid RCA w/ 2.5 x 28 mm Promus Synergy 01/15/2018; PCI-MIESHA-Mid LCx w/ 3.0 x 16 mm Promus Synergy 02/04/2018, Chronic COPD, HTN, HLD, Tobacco use, Depression and Anxiety, CKD stage III, Diabetes mellitus type 1 who presents to the [facility] ED on 08/26/20 with history of onset chest pain at 6:40 am on day of presentation, noted to be sharp, stabbing, mid-chest initially without radiation, rated 9/10 at its worst with associated nausea, emesis but patient denied diaphoresis and dyspnea, taking NG x 2 with some improvement but ongoing fatigue, malaise, nausea and inability to maintain oral intake with recurrent chest pain at ~ 6:30 pm. 1. Chest Pain with indeterminate cardiac enzyme: EKG in ED sinus rhythm with no acute evidence of ischemia with peak T waves, CXR w/ chronic COPD type changes with no acute cardiopulmonary findings otherwise, initial trop 0.050. Will admit to PCU, place on a monitored bed to assure no acute myocardial infarction with serial cardiac enzymes and EKGs. Will discuss case with Cardiology given patient history of nausea, emesis, malaise presentation prior to her prior PCI. Will place order for stress testing Friday in case enzyme/EKG trending remains normal and pain improves. Patient renal function would need improvement if cardiac catheterization plan Friday. FLP in AM. Magnesium level requested. ASA, NG, morphine. 04/2019 Normal exercise myocardial perfusion stress test at a high workload w/ preserved ejection fraction. 2. Acute kidney injury on CKD stage III: Secondary to suspected hypovolemia. Admission BUN/Cr 54/3.32, prior baseline creatinine noted to be 1.5-1.8, most recently 07/28/2020 1.7. Will hydrate dishes fully, hold nephrotoxic medications and repeat chemistry in AM. If no improvement would plan FeNa assessment and renal ultrasound as well as Nephrology involvement. 3. Hyperkalemia: Admission potassium 5.9, ED administered 5 unit IV insulin x1 as well as albuterol in addition to normal saline. Will additionally administer Kayexalate in addition to calcium gluconate, repeat BMP this evening and further treat as needed, repeat BMP in a.m. additionally. HgbA1c requested. 4. Diabetes mellitus type I with insulin pump with hyperglycemia: Blood sugars possibly up secondary to acute presentation, will continue hydration, allow ADA diet, accu checks w/ ISS. May necessitate alterations to her insulin pump regimen once work-up is further obtained. 5. CAD: Status post PCI x2, will continue patient aspirin, Plavix, statin, cautiously continue metoprolol given hypotension upon presentation following nitroglycerin self administration with hold as needed, holding losartan given acute kidney injury as noted. 6. Hypertension: Given hypotension, likely secondary to nitroglycerin will cautiously resume metoprolol with specific hold parameters, holding lisinopril given acute kidney injury. 7. Hyperlipidemia: Continue home statin regimen. AM FLP. 8. Normocytic anemia: Admission hemoglobin 11.5, baseline prior appears 9-11 however most recent 02/16/2020 hemoglobin 12.4, trend CBC. 9. Chronic COPD: Will maintain on ATC duonebs, PRN albuterol, HOB, IS parameters. 10. Tobacco Abuse: Encouraged cessation, inpatient consultation per RT, NR if desired. 11. DVT prophylaxis: SCDs, heparin. 12. CODE status: Patient does not have HCPOA nor LW in place. Encouraged set-up and noted they may ask assistance/information from CM/SW. Discussed CODE status at length including difference between FULL code, DNR-CCA and DNR-CC status. Following discussions about the differences in these status, requested Full Code status. Advanced Care Planning Face to Face Time: 16 minutes. Inpatient E&M: 93523 Init Hosp L3 Procedures: 74990 Advncd Care Plan 30 Min
[2020-08-26] MEDS: Albuterol 2.5 MG/3 ML VIAL.NEB. INHALATION ×2 (19:31→22:14)
[2020-08-26] MEDS: Insulin Lispro 5 UNIT in Syringe 0 ML 3 UNIT IV (19:38)
--- NOTE | 2020-08-26 20:10 | EKG12_ITS ---
Test Reason : SEPSIS Blood Pressure : / mmHG Vent. Rate : 141 BPM Atrial Rate : 086 BPM P-R Int : 136 ms QRS Dur : 090 ms QT Int : 346 ms P-R-T Axes : 086 -81 090 degrees QTc Int : 529 ms Sinus rhythm with frequent Premature ventricular complexes Left axis deviation Septal infarct , age undetermined Abnormal ECG When compared with ECG of 27-AUG-2020 04:54, MANUAL COMPARISON REQUIRED, DATA IS UNCONFIRMED Confirmed by MODESTO DAIGLE, NICOLA ([id number]), film editor supervisor ARNALDO FENTON ([id number]) on 08/29/2020 10:45:59 AM Referred By: BRAD Confirmed By:NICOLA SALVADOR MD
[2020-08-26] MEDS: 0.9% Normal Saline 1,000 ML 125 ML IV (20:50)
[2020-08-26] MEDS: Calcium Gluconate 1 GM/10 ML Vial IV (22:46)
[2020-08-26] MEDS: Heparin Injection (Vial) 5,000 UNIT/ML VIAL 5000 UNIT SC (22:46)
[2020-08-26] MEDS: Atorvastatin Calcium 20 MG Tablet PO (22:47)
[2020-08-26] MEDS: Gabapentin 300 MG Capsule PO (22:47)
[2020-08-26] MEDS: 0.9% Saline Lock 10 ML Syringe IV (22:47)
[2020-08-26 22:51] LABS: Anion Gap 11 (5-15); BUN 52 mg/dL (7-18); BUN/Creat Ratio 17.3 RATIO (10-20); Chloride 106 mmol/L (98-107); Creatinine, Serum 3.01 mg/dL (0.55-1.02); EST Glomerular Filtration Rate 17 mL/min (>60); Est Glom Filt Rate - Afr Amer 20 mL/min (>60); Estimated Creatinine Clearance 15.34 ml/min; Glucose 290 mg/dL (74-106); Potassium 5.4 mmol/L (3.5-5.1); Sodium Level 135 mmol/L (136-145)
--- NOTE | 2020-08-26 22:55 | NURSING ---
Pt BS at this time is 345. Pt using home insulin pump. Pump gave 3.4 units.
[2020-08-26] MEDS: Sodium Polystyrene Sulfonate 15 GM/60 ML UDC 30 GM PO (23:07)
[2020-08-26 23:26] LABS: Bedside Glucose 345 mg/dL (70-110)
[2020-08-27] VITALS (43 sets, daily range): BP systolic 74–103; BP diastolic 32–61; PULSE 68–95; RESP 15–26; TEMP 36.2–36.7; O2SAT 94–100
[2020-08-27] MEDS: 0.9% Normal Saline 1,000 ML 999 ML IV ×4 (02:42→09:19)
--- NOTE | 2020-08-27 05:55 | EKG12_ITS ---
Test Reason : AM EKG Blood Pressure : / mmHG Vent. Rate : 075 BPM Atrial Rate : 075 BPM P-R Int : 180 ms QRS Dur : 094 ms QT Int : 406 ms P-R-T Axes : 081 -86 084 degrees QTc Int : 453 ms Normal sinus rhythm Left axis deviation Septal infarct , age undetermined Abnormal ECG When compared with ECG of 26-AUG-2020 21:04, MANUAL COMPARISON REQUIRED, DATA IS UNCONFIRMED Confirmed by MODESTO DAIGLE, NICOLA ([id number]), editor in chief newspaper ARNALDO FENTON ([id number]) on 08/29/2020 10:52:08 AM Referred By: MICHELLE Confirmed By:NICOLA SALVADOR MD
[2020-08-27] MEDS: Midodrine HCl 5 MG Tablet 10 MG PO (07:02)
[2020-08-27] MEDS: 0.9% Normal Saline 1,000 ML 125 ML IV ×2 (07:05→19:47)
[2020-08-27 07:12] LABS: Absolute Lymphocyte Count 1.04 X10^3/uL (0.83-4.51); Basophil# 0.04 X10^3/uL; Basophil% 0.3 % (0-1); Eosinophil# 0.01 X10^3/uL; Eosinophils% 0.1 % (0-5); Hematocrit 30.8 % (37-47); Hemoglobin 9.1 g/dL (12.0-15.0); Lymphocyte # 1.04 X10^3/ul (4.0); Lymphocyte % 7.9 % (19-41); Mean Corp Hgb Conc 29.5 g/dL (32-36); Mean Corpuscular Hgb 30.2 pg (27.0-32.0); Mean Corpuscular Volume 102.3 fL (81-99); Mean Platelet Vol. 10.6 fl (6.2-12.0); Monocyte# 0.98 X10^3/uL; Monocyte% 7.5 % (0-10); NRBC Flagged by Analyzer 0 % (0-5); Neutrophil # 10.97 X10^3/uL (2.7-7.7); Neutrophil % 83.4 % (47-70); Platelet Count 168 K/mm3 (150-450); RBC Distribution Width CV 12.8 % (11.6-14.6); RBC Distribution Width SD 48.3 fl (35.1-43.9); Red Blood Count 3.01 M/mm3 (4.2-5.4); White Blood Count 13.2 K/mm3 (4.4-11.0)
[2020-08-27 07:16] LABS: Bedside Glucose > 500 mg/dL (70-110)
--- NOTE | 2020-08-27 07:45 | NURSING ---
Flaquito Garcia called to inform about Pt being transferred to ICU shortly.
[2020-08-27 07:49] LABS: ALB/GLOB Ratio 1.1 RATIO (0.9-2.4); AST(SGOT) 19 U/L (15-37); Alanine Aminotransfer ALT/SGPT 14 U/L (13-56); Albumin, Serum 2.6 g/dL (3.2-5.0); Alkaline Phosphatase 61 U/L (45-117); Anion Gap 17 (5-15); BUN 56 mg/dL (7-18); BUN/Creat Ratio 14.5 RATIO (10-20); Calcium,Total 7.5 mg/dL (8.5-10.1); Chloride 104 mmol/L (98-107); Cholesterol 93 mg/dL (200); Creatinine, Serum 3.87 mg/dL (0.55-1.02); EST Glomerular Filtration Rate 13 mL/min (>60); Est Glom Filt Rate - Afr Amer 15 mL/min (>60); Estimated Creatinine Clearance 11.93 ml/min; Globulin 2.3 g/dL (2.2-4.2); Glucose 699 mg/dL (74-106); High Density Lipoprotein 29 mg/dL; Potassium 6.7 mmol/L (3.5-5.1); Protein, Total 4.9 g/dL (6.4-8.2); Sodium Level 132 mmol/L (136-145); Triglycerides 262 mg/dL; Very Low Density Lipoprotein 52 mg/dL (5-40)
--- NOTE | 2020-08-27 08:00 | NURSING ---
Pt report called to BO Hawkins in ICU.
--- NOTE | 2020-08-27 08:22 | PN_ITS ---
Patient Problems: Active and Suspected Problems (Last Reviewed 11/19/19 @ 10:29 by Radha Sandhu PA, PA) Chest pain (Acute) S/P PTCA (percutaneous transluminal coronary angioplasty) (Acute) Diabetes (Acute) Hypotension (Acute) Renal insufficiency (Acute) Hyperkalemia (Acute) Reason for Visit: Follow-up for hyperkalemia, chest pain, hypotension, DKA Objective: Patient states he is not following good. Drowsy and lethargic. Has chronic cough which has not changed in characteristic or sputum production. Denies any contact with sick person or attending large gathering or crowd. No fever. Patient was admitted for chest pain in PCU but overnight she dropped her blood pressure in systolic 80s, 70s and was treated with 2 L of normal saline bolus in the PCU after 2 L in ED total 4 L of normal saline. EKG shows hyperacute T waves in chest leads. Potassium was 5.9 he was given 30 g consulted before. Repeat potassium 6.7, glucose 699, anion gap 17, bicarb 11 suggestive of DKA. 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 She follows gig tender Dr. Huerta. Physical exam General: Drowsy, lethargic, generalized weakness HEENT: Atraumatic, PERRLA, EOMI, Normocephalic Oral: Oral mucosa dry. No Gingival or Mucosal Lesions/ Ulcerations Neck: Supple, No JVD, Negative Carotid Bruits Lungs: Air entry diminished in bilateral lung. No obvious crepitation, rhonchi or wheezing. Cardiovascular: Regular rate, Regular Rhythm, Normal S1, Normal S2, No murmurs, hypotension Abdomen: Bowel Sounds Present, Soft, Non Tender, Non-Distended : No renal angle tenderness. No suprapubic tenderness. Extremities: No edema, Capillary Refill Less than 3 Seconds Skin: No rashes, No breakdown Musculoskeletal: No Tenderness to Palpation of Joints or Extremities Neurological: Cranial nerves II-XII grossly intact, Deep Tendon Reflexes 2+/4 and Symmetrical, Neuro grossly intact Psych/Mental Status: Lethargic. Vitals/I&O's: Vital Signs Temp Pulse Resp BP Pulse Ox 97.8 F 73 16 78/39 L 96 08/27/20 07:00 08/27/20 07:00 08/27/20 07:00 08/27/20 07:00 08/27/20 07:00 Oxygen Delivery Method Room Air Weight: 107 lb 12.897 oz Body Mass Index (BMI) 17.4 Finger Stick Blood Glucose 288 Intake and Output for Last 24 Hours 08/25/20 08/26/20 08/27/20 23:59 23:59 23:59 Intake Total 344. / 344.00 Balance 344 / 3439. General: Lethargic, - - Drowsy Laboratory Results 08/26/20 18:45: WBC 11.4 H, RBC 3.83 L, Hgb 11.5 L, Hct 36.9 L, MCV 96.3, MCH 30.0, MCHC 31.2 L, RDW Std Deviation 44.5 H, RDW Coeff of Iron 12.6, Plt Count 220, MPV 10.2, Immature Gran % (Auto) 0.400, Neut % (Auto) 65.0, Lymph % (Auto) 18.9 L, Emery % (Auto) 11.9 H, Eos % (Auto) 3.1, Baso % (Auto) 0.7, Absolute Neuts (auto) 7.4, Absolute Lymphs (auto) 2.15, Nucleated RBC % 0 08/26/20 18:45: Sodium 132 L, Potassium 5.9 H, Chloride 98, Carbon Dioxide 19.0 L, Anion Gap 15, BUN 54 H, Creatinine 3.32 H, Estim Creat Clear Calc 13.81, Est GFR (MDRD) Af Amer 18 L, Est GFR (MDRD) Non-Af 15 L, BUN/Creatinine Ratio 16.3, Glucose 361 H, Calcium 9.1, Troponin I 0.050 H 08/26/20 18:45: Magnesium 2.0 08/26/20 22:00: Sodium 135 L, Potassium 5.4 H, Chloride 106, Carbon Dioxide 18.0 L, Anion Gap 11, BUN 52 H, Creatinine 3.01 H, Estim Creat Clear Calc 15.34, Est GFR (MDRD) Af Amer 20 L, Est GFR (MDRD) Non-Af 17 L, BUN/Creatinine Ratio 17.3, Glucose 290 H, Calcium 8.0 L 08/26/20 22:00: Troponin I 0.052 H 08/26/20 22:53: POC Glucose 345 H 08/27/20 00:15: Troponin I 0.055 H 08/27/20 06:25: WBC Pending, RBC Pending, Hgb Pending, Hct Pending, MCV Pending, MCH Pending, MCHC Pending, RDW Std Deviation Pending, RDW Coeff of Iron Pending, Plt Count Pending, Neut % (Auto) Pending, Absolute Neuts (auto) Pending 08/27/20 06:25: Sodium 132 L, Potassium 6.7 H*, Chloride 104, Carbon Dioxide 11.0 L, Anion Gap 17 H, BUN 56 H, Creatinine 3.87 H, Estim Creat Clear Calc 11.93, Est GFR (MDRD) Af Amer 15 L, Est GFR (MDRD) Non-Af 13 L, BUN/Creatinine Ratio 14.5, Glucose 699 H*, Calcium 7.5 L, Total Bilirubin 0.40, AST 19, ALT 14, Alkaline Phosphatase 61, Total Protein 4.9 L, Albumin 2.6 L, Globulin 2.3, Albumin/Globulin Ratio 1.1, Triglycerides 262 H, Cholesterol 93, LDL Cholesterol 12, VLDL Cholesterol 52 H, HDL Cholesterol 29 L 08/27/20 06:25: Hemoglobin A1c Pending 08/27/20 07:09: POC Glucose > 500 H* Current Medications Acetaminophen (Acetaminophen 325 Mg Tablet) 650 mg PO Q6H PRN PRN PRN Reason: Pain Score 1-10/Temp > 100.7 F Al Hydroxide/Mg Hydroxide (Mag Hydrox/Al Hydrox/Simeth 30 Ml Udc) 30 ml PO Q6H PRN PRN PRN Reason: Gastric Burning Albuterol Sulfate (Albuterol 2.5 Mg/3 Ml Vial.Neb.) 2.5 mg INHALATION Q2H PRN PRN PRN Reason: Dyspnea, wheezing Last Admin: 08/26/20 22:14 Dose: 2.5 mg Documented by: Albuterol/Ipratropium (Ipratropium/Albuterol Sulfate 3 Ml Ampul.Neb) 3 ml INHALATION Q6HWA.RT LANCE Aspirin (Aspirin E.C. 81 Mg Tablet) 81 mg PO DAILY LANCE Atorvastatin Calcium (Atorvastatin Calcium 20 Mg Tablet) 20 mg PO QHS LANCE Last Admin: 08/26/20 22:47 Dose: 20 mg Documented by: Calcium Gluconate (Calcium Gluconate 1 Gm/10 Ml Vial) 1 gm IV X1 ONE Stop: 08/27/20 07:59 Clopidogrel Bisulfate (Clopidogrel Bisulfate 75 Mg Tablet) 75 mg PO DAILY [facility] Gabapentin (Gabapentin 300 Mg Capsule) 300 mg PO QHS [facility] Last Admin: 08/26/20 22:47 Dose: 300 mg Documented by: Guaifenesin (Guaifenesin 10 Ml Udc (200mg/10ml)) 20 ml PO Q4H PRN PRN PRN Reason: COUGH Heparin Sodium (Porcine) (Heparin Injection (Vial) 5,000 Unit/Ml Vial) 5,000 unit SC Q12 [facility] Last Admin: 08/26/20 22:46 Dose: 5,000 unit Documented by: Sodium Chloride () 1,000 mls @ 125 mls/hr IV .Q8H [facility] Last Admin: 08/27/20 07:05 Dose: 125 mls/hr Documented by: Sodium Chloride () 1,000 mls @ 999 mls/hr IV .Q1H1M ONE Stop: 08/27/20 08:42 Last Admin: 08/27/20 07:57 Dose: 999 mls/hr Documented by: Influenza Virus Vaccine Quadrival (Influenza Vaccine (6mos+)/Pf 0.5 Ml Syringe) 0.5 ml IM .ONCE ONE Stop: 08/27/20 10:01 Magnesium Hydroxide (Magnesium Hydroxide 30 Ml Udc) 30 ml PO DAILY PRN PRN PRN Reason: Constipation Melatonin (Melatonin 3 Mg Tablet) 3 mg PO QHS PRN PRN PRN Reason: INSOMNIA Metoprolol Tartrate (Metoprolol Tartrate 50 Mg Tablet) 50 mg PO BID [facility] Last Admin: 08/26/20 22:55 Dose: Not Given Documented by: Midodrine (Midodrine Hcl 5 Mg Tablet) 10 mg PO TID [facility] Last Admin: 08/27/20 07:02 Dose: 10 mg Documented by: Morphine Sulfate (Morphine 2 Mg/Ml Syringe) 2 mg IV Q3H PRN PRN PRN Reason: Pain Score 6-10 Nicotine (Nicotine 21 Mg Patch) 21 mg TRANSDERM. DAILY [facility] Last Admin: 08/27/20 03:46 Dose: 21 mg Documented by: Nicotine Polacrilex (Nicotine Polacrilex 2 Mg Gum) 2 mg PO Q2H PRN PRN PRN Reason: nicotine cravings Nitroglycerin (Nitroglycerin (Inpatient Use) 0.4 Mg Tab.Subl) 0.4 mg SUBLINGUAL Q5M PRN PRN Reason: CARDIAC/CHEST PAIN Non-Formulary Medication (Insulin Basal Pump (Pt's Own) [Pump, Basal]) 1 unit SC UD LANCE Ondansetron HCl (Ondansetron 4 Mg/2 Ml Vial) 4 mg IV Q8H PRN PRN PRN Reason: NAUSEA/VOMITING Oxycodone HCl (Oxycodone 5 Mg Tablet) 5 mg PO Q4H PRN PRN PRN Reason: Pain Score 4-5 Prochlorperazine Edisylate (Prochlorperazine 10 Mg/2 Ml Vial) 5 mg IV Q4H PRN PRN PRN Reason: Breakthrough Nausea/Vomiting Psyllium Hydrophilic Mucilloid (Psyllium 1 Packet) 1 packet PO DAILY PRN PRN PRN Reason: Constipation Senna/Docusate Sodium (Senna/Docusate Sodium 1 Tablet) 2 tablet PO BID PRN PRN PRN Reason: Constipation Sodium Chloride (0.9% Saline Lock 10 Ml Syringe) 10 - 40 ml IV UD PRN PRN Reason: SALINE FLUSH Last Admin: 08/26/20 22:47 Dose: 10 ml Documented by: Throat Lozenges (Benzocaine/Menthol 1 Lozenge) 1 lozenge MUCOUS MEM Q2H PRN PRN PRN Reason: SORE THROAT STROKE Vital Signs/Narrative: Vital Signs Temp Pulse Resp BP Pulse Ox 08/27/20 07:00 97.8 F 73 16 78/39 L 96 08/27/20 06:39 78 08/27/20 04:30 97.6 F L 72 18 76/38 L 94 Medical Necessity - Tobacco Use Smoking Status: Current every day smoker Tobacco Use: Cigarettes Assessment/Plan All Active Problems (Last Reviewed 11/19/19 @ 10:29 by Radha BHARDWAJ, PA) Chest pain (Acute) S/P PTCA (percutaneous transluminal coronary angioplasty) (Acute) Diabetes (Acute) Hypotension (Acute) Renal insufficiency (Acute) Hyperkalemia (Acute) NSTEMI (non-ST elevated myocardial infarction) (Resolved 01/12/18) DKA (diabetic ketoacidoses) (Resolved) Intractable nausea and vomiting (Resolved) Ketoacidosis (Resolved) The patient is a 59 y/o F with multiple comorbidities including coronary artery status post PCI, COPD, CKD stage III 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 Patient also felt fatigue malaise. 1. Hypotension associated with DKA: Patient had 4 L of IV fluid normal saline from ER and PCU. Patient still hypotensive BP 86/44. Patient also had electrolyte abnormality, K6.7, anion gap 17, bicarb 11, pH 7.06, suggestive of DKA. Patient was transferred to ICU. Patient still needs volume resuscitation. Serum osmolarity is high 331. 2. DKA, diabetes mellitus type 1 with hyperkalemia, high anion gap metabolic acidosis with acute kidney injury on CKD stage III, diabetic nephropathy: Started on DKA protocol. Blood sugar high 699, K6.7. Patient was given hyperkalemia cocktail and Kayexalate. As pH 7.06, patient hyperkalemic, started on bicarb drip. Twelve-lead EKG shows tall T waves in chest leads. Repeat K4.9. Acetone moderate high. Patient also has diabetic nephropathy, her baseline creatinine runs around 1.7-2.0. Nephrology consult. 3. Chest pain with intermittent cardiac enzymes coronary artery status post PCI: EKG does not show ST deviation but peaked T waves. Chest x-ray chronic COPD changes but no acute finding. Serial troponin shows flat trend. 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 2D echo is ordered. Mild troponin elevation may be secondary to increased cardiac demand. As per last cardiac cath, EF 65% with normal left and systolic function, mid circumflex 80%, proximal circumflex 70% RCA mid 80% in January 2018 for which she required PCI. Last echo in January 2018 EF 65% with mild eccentric MR, mild TR. 4. COPD: On DuoNeb, as needed albuterol, incentive spirometry and chest physiotherapy 11. DVT prophylaxis: SCDs, heparin. Microbiology Past 72 Hours 08/27/20 05:25 Mucosa - Nasopharyngeal Respiratory Panel (PCR) - Final Laboratory Results 08/27/20 06:25: WBC 13.2 H, RBC 3.01 L, Hgb 9.1 L, Hct 30.8 L, MCV 102.3 H D, M CH 30.2, MCHC 29.5 L D, RDW Std Deviation 48.3 H, RDW Coeff of Iron 12.8, Plt Count 168, MPV 10.6, Immature Gran % (Auto) 0.800, Neut % (Auto) 83.4 H, Lymph % (Auto) 7.9 L, Emery % (Auto) 7.5, Eos % (Auto) 0.1, Baso % (Auto) 0.3, Absolute Neuts (auto) 11.0 H, Absolute Lymphs (auto) 1.04, Nucleated RBC % 06:25: Sodium 132 L, Potassium 6.7 H*, Chloride 104, Carbon Dioxide 11.0 L, Anion Gap 17 H, BUN 56 H, Creatinine 3.87 H, Estim Creat Clear Calc 11.93, Est GFR (MDRD) Af Amer 15 L, Est GFR (MDRD) Non-Af 13 L, BUN/Creatinine Ratio 14.5, Glucose 699 H*, Calcium 7.5 L, Total Bilirubin 0.40, AST 19, ALT 14, Alkaline Phosphatase 61, Total Protein 4.9 L, Albumin 2.6 L, Globulin 2.3, Albumin/Globulin Ratio 1.1, Triglycerides 262 H, Cholesterol 93, LDL Cholesterol 12, VLDL Cholesterol 52 H, HDL Cholesterol 29 L 08/27/20 06:25: Hemoglobin A1c 7.6 H 08/27/20 07:09: POC Glucose > 500 H* 08/27/20 08:07: Specimen Type ART, Sample Site R Brach, pH 7.06 L*, Bicarbonate Actual 10.2 L, Total CO2 11, Base Excess -20 L, O2 Saturation 91 L, ABG pCO2 36.0, ABG pO2 86, O2 Delivery Device Room Air 08/27/20 09:25: COVID-19 (MARISA) Not Detected 08/27/20 10:02: POC Glucose > 500 H* 08/27/20 11:08: POC Glucose > 500 H* 08/27/20 11:10: Sodium 137, Potassium 4.9, Chloride 108 H, Carbon Dioxide 12.0 L , Anion Gap 17 H, BUN 57 H, Creatinine 3.86 H, Estim Creat Clear Calc 11.96, Est GFR (MDRD) Af Amer 15 L, Est GFR (MDRD) Non-Af 13 L, BUN/Creatinine Ratio 14.8, Glucose 654 H*, Calcium 7.1 L, Magnesium 1.7 08/27/20 11:10: Serum Osmolality 331 H, Acetone Level MODERATE H 08/27/20 11:10: Sodium Cancelled, Potassium Cancelled, Chloride Cancelled, Carbon Dioxide Cancelled, Anion Gap Cancelled, BUN Cancelled, Creatinine Cancelled, Estim Creat Clear Calc Cancelled, Est GFR (MDRD) Af Amer Cancelled, Est GFR (MDRD) Non-Af Cancelled, BUN/Creatinine Ratio Cancelled, Glucose Canc elled, Calcium Cancelled 08/27/20 11:10: Glucose Cancelled Inpatient E&M: [id number] Subs Hosp L3
--- NOTE | 2020-08-27 08:26 | EKG12_ITS ---
Test Reason : CP ADMISSION Blood Pressure : / mmHG Vent. Rate : 084 BPM Atrial Rate : 084 BPM P-R Int : 154 ms QRS Dur : 074 ms QT Int : 372 ms P-R-T Axes : 080 -76 079 degrees QTc Int : 439 ms Normal sinus rhythm Left axis deviation Septal infarct , age undetermined Abnormal ECG When compared with ECG of 09-JUL-2018 10:15, Septal infarct is now Present ST now depressed in Inferior leads Confirmed by MODESTO DAIGLE, NICOLA ([id number]), space systems operations craftsman ARNALDO FENTON ([id number]) on 08/29/2020 10:54:07 AM Referred By: MICHELLE Confirmed By:NICOLA SALVADOR MD
[2020-08-27] MEDS: Insulin Lispro 100 UNIT/ML INSULN.PEN 18 UNIT SC (08:52)
[2020-08-27] MEDS: Calcium Gluconate 1 GM/10 ML Vial IV (08:55)
[2020-08-27] MEDS: Sodium Polystyrene Sulfonate 15 GM/60 ML UDC 30 GM PO (09:08)
[2020-08-27 09:16] LABS: Base Excess -20 mmol/L (-2 to +2); Bicarbonate 10.2 mmol/L (22-26); Blood Gas Specimen Type ART; O2 Delivery Device Room Air; PO2 86 mmHG (75-100); SITE R Brach; SO2 91 % (95-99); Total Carbon Dioxide 11 mmol/L; pH 7.06 (7.35-7.45)
[2020-08-27 09:36] LABS: Hemoglobin A1c 7.6 % (3.8-5.6)
--- NOTE | 2020-08-27 09:40 | CON.PCM_ITS ---
Reason for Consult Date of Consultation: 08/27/20 Reason for Consultation: Hypotension, shock History of Present Illness: The patient is a 59-year-old female, with a history as outlined below, who presented to the emergency department on August 26 with complaints of chest pain. The patient has also had associated shortness of breath, nausea and vomiting. The patient has known diabetes mellitus and has an insulin pump in place, which apparently has not been functioning over the last several days, as the patient's blood sugars have been elevated. In addition to the aforementioned, the patient does have a history of COPD and chronic tobacco dependency. Pulmonary function studies completed in 2018 revealed evidence of a partially reversible severe large airways obstructive ventilatory defect. The patient does continue to smoke cigarettes daily. On presentation to the emergency department, the patient was noted to be afebrile but was hypotensive with a blood pressure of 84/39 mmHg. She was maintaining appropriate oxygen saturations on room air. Laboratory evaluation revealed a normal white blood cell count. Chemistry profile was notable for a sodium of 132, potassium of 5.9, bicarbonate of 19 and creatinine of 3.32. Glucose was elevated to 361. Troponin was increased to 0.050. The patient was initially given supplemental IV fluids and subcutaneous insulin. She was initially admitted to the progressive care unit for further management. However, over the course of the night, the patient remained hypotensive with increasing blood glucose levels. The patient was subsequently transferred to the medical intensive care unit for further management. She does appear to have developed likely DKA with an increased anion gap and significantly elevated blood glucose. Past Medical History Past Medical History (Chronic Problems): Chronic Problems (Last Reviewed 11/19/19 @ 10:29 by Radha BHARDWAJ, PA) Chronic obstructive pulmonary disease (Chronic) Dizziness (Chronic) Intermittent palpitations (Chronic) Atherosclerosis of coronary artery of [place] heart without angina pectoris (Chronic) PCI-MIESHA-Mid RCA w/ 2.5 x 28 mm Promus Synergy 01/15/2018; PCI-MIESHA-Mid LCx w/ 3.0 x 16 mm Promus Synergy 02/04/2018 History of coronary artery stent placement (Chronic 02/04/18) PCI-MIESHA-Mid RCA w/ 2.5 x 28 mm Promus Synergy 01/15/2018; PCI-MIESHA-Mid LCx w/ 3.0 x 16mm Promus Synergy 02/04/2018 Essential (primary) hypertension (Chronic) Hyperlipidemia (Chronic) Nicotine dependence (Chronic) Medical History: Medical History (Last Reviewed 11/19/19 @ 10:29 by Radha Sandhu PA, PA) Atherosclerosis of coronary artery of [place] heart without angina pectoris (Chronic) I25.10 PCI-MIESHA-Mid RCA w/ 2.5 x 28 mm Promus Synergy 01/15/2018; PCI-MIESHA-Mid LCx w/ 3.0 x 16 mm Promus Synergy 02/04/2018 NSTEMI (non-ST elevated myocardial infarction) (Resolved) Onset Date: 01/12/18 I21.4 Essential (primary) hypertension (Chronic) I10 Hyperlipidemia (Chronic) E78.5 Nicotine dependence (Chronic) F17.200 Anxiety F41.9 CKD (chronic kidney disease) stage 3, GFR 30-59 ml/min COPD (chronic obstructive pulmonary disease) J44.9 DM type 1 (diabetes mellitus, type 1) Dx : 1999 Last exacerbation : DKA : 01/18 Hypoglycemic episode : never ER visit : 01/18 Depression F32.9 Hypersomnia G47.10 Allergies No Known Allergies Allergy (Verified 08/26/20 20:18) Home Medications: Ambulatory Orders Medication Instructions Recorded Albuterol IH (ProAir) [Proair Hfa] 2 puff INHALATION Q6H PRN PRN 06/21/18 Ergocalciferol [Vitamin D] 50,000 unit PO Q7D 06/21/18 Gabapentin [Neurontin] 300 mg PO QHS 06/21/18 Simvastatin [Zocor] 40 mg PO QHS 06/21/18 Tiotropium [place] [Spiriva] 18 mcg IH DAILY 06/21/18 Albuterol Aerosols [Ventolin 2.5 mg INHALATION Q2H PRN PRN #1 06/23/18 Aerosols] box losartan 25 mg tablet 25 mg PO DAILY 11/19/19 metoprolol tartrate 50 mg tablet 50 mg PO BID #180 tab 11/19/19 nitroglycerin 0.4 mg sublingual 0.4 mg SUBLINGUAL Q5-15M PRN #25 11/19/19 tablet tab aspirin 81 mg tablet,delayed 81 mg PO DAILY 12/31/19 release clopidogrel 75 mg tablet 75 mg PO DAILY #90 tab 12/31/19 Insulin Basal Pump (Pt's Own) 0 unit SC UD 08/26/20 [Pump, Basal] Surgical History: Surgical History (Last Reviewed 11/19/19 @ 10:29 by Radha BHARDWAJ, PA) History of coronary artery stent placement (Chronic) Onset Date: 02/04/18 Z95.5 PCI-MIESHA-Mid RCA w/ 2.5 x 28 mm Promus Synergy 01/15/2018; PCI-MIESHA-Mid LCx w/ 3.0 x 16mm Promus Synergy 02/04/2018 H/O: Z98.891 H/O: hysterectomy Z90.710 Hx of appendectomy Z90.49 Surgical History: appendectomy, hysterectomy, - - . 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 Lives: Spouse/ Significant Other Smoking Status: Current every day smoker Tobacco Use: Cigarettes Alcohol: None Drugs: None - *Family History Maternal Family History: Family History (Last Reviewed 11/19/19 @ 10:29 by Radha BHARDWAJ, PA) Mother Heart disease COPD (chronic obstructive pulmonary disease) Lupus Daughter Growth disorder Down syndrome Fibromyalgia Grandfather Colon cancer Diabetes Grandmother Heart disease CVA (cerebral vascular accident) Diabetes Pulmonary disease Sister Hypertension Kidney disease History Items: High Cholesterol, Heart Disease, Hypertension, Pulmonary Disease, - - Lupus. Paternal Family History: Family History (Last Reviewed 11/19/19 @ 10:29 by Radha BHARDWAJ, PA) Mother Heart disease COPD (chronic obstructive pulmonary disease) Lupus Daughter Growth disorder Down syndrome Fibromyalgia Grandfather Colon cancer Diabetes Grandmother Heart disease CVA (cerebral vascular accident) Diabetes Pulmonary disease Sister Hypertension Kidney disease History Items: Heart Disease Review of Systems Constitutional: Reports: Malaise. Denies: Chills, Fever Eyes: Denies: Blurred vision, Double vision HEENT: Denies: Head Aches, Sinus Congestion, Sinus Drainage Cardiovascular: Reports: Chest Pain Respiratory: Denies: Cough, Shortness of breath at rest, Sputum production Gastrointestinal: Reports: Abdominal Pain, Nausea Genitourinary: Denies: Dysuria Musculoskeletal: Denies: Joint Pain, Joint Tenderness Skin: Denies: Rash, Wounds Neurological: Denies: Numbness, Tingling, Focal weakness Psychiatric: Denies: Anxiety, Depression, Homicidal Ideations, Suicidal Ideations Hematologic/ Lymphatic: Denies: Easy Bruising, Easy Bleeding Patient Problems: Active and Suspected Problems (Last Reviewed 11/19/19 @ 10:29 by Radha BHARDWAJ, PA) Chest pain (Acute) S/P PTCA (percutaneous transluminal coronary angioplasty) (Acute) Diabetes (Acute) Hypotension (Acute) Renal insufficiency (Acute) Hyperkalemia (Acute) Objective: The patient's most recent lab work, culture data and imaging studies have all been personally reviewed. Surface echocardiogram from 2018 revealed normal LV size with an ejection fraction of 65%. Pulmonary artery systolic pressure was estimated to be 35 mmHg. Respiratory viral panel is pending. Coronavirus PCR is pending. - Physical Exam Vitals/I&O's: Vital Signs Temp Pulse Resp BP Pulse Ox 97.8 F 73 16 78/39 L 96 08/27/20 07:00 08/27/20 07:00 08/27/20 07:00 08/27/20 07:00 08/27/20 07:00 Oxygen Delivery Method Room Air Weight: 107 lb 12.897 oz Body Mass Index (BMI) 17.4 Finger Stick Blood Glucose 288 Intake and Output for Last 24 Hours 08/25/20 08/26/20 08/27/20 23:59 23:59 23:59 Intake Total 2199. 3440.00 / 3440.00 Balance 344.00 / 3440.00 General: Alert, Cooperative, No apparent distress, - - Fatigued in appearance HEENT: Atraumatic, Normocephalic Oral: Dry Mucosa Neck: Supple, No Nodes, Trachea Midline Lungs: No rhonchi, No wheeze, No rales, Diminished Cardiovascular: Regular rate, Regular Rhythm Abdomen: Bowel Sounds Present, Soft, Non Tender Extremities: No clubbing, No cyanosis, No edema Skin: No breakdown Musculoskeletal: No Tenderness to Palpation of Joints or Extremities Lymphatic: No Cervical, Supraclavicular, or Inguinal Adenopathy Neurological: Cranial nerves II-XII grossly intact, Neuro grossly intact Psych/Mental Status: Flat Affect Labs (Last 48 Hours) 08/26/20 08/26/20 08/26/20 18:45 18:45 18:45 WBC 11.4 H RBC 3.83 L Hgb 11.5 L Hct 36.9 L MCV 96.3 MCH 30.0 MCHC 31.2 L RDW Std Deviation 44.5 H RDW Coeff of Iron 12.6 Plt Count 220 MPV 10.2 Immature Gran % (Auto) 0.400 Neut % (Auto) 65.0 Lymph % (Auto) 18.9 L [place] % (Auto) 11.9 H Eos % (Auto) 3.1 Baso % (Auto) 0.7 Absolute Neuts (auto) 7.4 Absolute Lymphs (auto) 2.15 Nucleated RBC % 0 Specimen Type Sample Site pH Bicarbonate Actual Total CO2 Base Excess O2 Saturation ABG pCO2 ABG pO2 O2 Delivery Device Sodium 132 L Potassium 5.9 H Chloride 98 Carbon Dioxide 19.0 L Anion Gap 15 BUN 54 H Creatinine 3.32 H Estim Creat Clear Calc 13.81 Est GFR (MDRD) Af Amer 18 L Est GFR (MDRD) Non-Af 15 L BUN/Creatinine Ratio 16.3 Glucose 361 H Hemoglobin A1c Calcium 9.1 Magnesium 2.0 Total Bilirubin AST ALT Alkaline Phosphatase Troponin I 0.050 H Total Protein Albumin Globulin Albumin/Globulin Ratio Triglycerides Cholesterol LDL Cholesterol VLDL Cholesterol HDL Cholesterol COVID-19 (MARISA) POC Glucose 08/26/20 08/26/20 08/26/20 22:00 22:00 22:53 WBC RBC Hgb Hct MCV MCH MCHC RDW Std Deviation RDW Coeff of Iron Plt Count MPV Immature Gran % (Auto) Neut % (Auto) Lymph % (Auto) [place] % (Auto) Eos % (Auto) Baso % (Auto) Absolute Neuts (auto) Absolute Lymphs (auto) Nucleated RBC % Specimen Type Sample Site pH Bicarbonate Actual Total CO2 Base Excess O2 Saturation ABG pCO2 ABG pO2 O2 Delivery Device Sodium 135 L Potassium 5.4 H Chloride 106 Carbon Dioxide 18.0 L Anion Gap 11 BUN 52 H Creatinine 3.01 H Estim Creat Clear Calc 15.34 Est GFR (MDRD) Af Amer 20 L Est GFR (MDRD) Non-Af 17 L BUN/Creatinine Ratio 17.3 Glucose 290 H Hemoglobin A1c Calcium 8.0 L Magnesium Total Bilirubin AST ALT Alkaline Phosphatase Troponin I 0.052 H Total Protein Albumin Globulin Albumin/Globulin Ratio Triglycerides Cholesterol LDL Cholesterol VLDL Cholesterol HDL Cholesterol COVID-19 (MARISA) POC Glucose 345 H 08/27/20 08/27/20 08/27/20 00:15 06:25 06:25 WBC 13.2 H RBC 3.01 L Hgb 9.1 L Hct 30.8 L MCV 102.3 H D MCH 30.2 MCHC 29.5 L D RDW Std Deviation 48.3 H RDW Coeff of Iron 12.8 Plt Count 168 MPV 10.6 Immature Gran % (Auto) 0.800 Neut % (Auto) 83.4 H Lymph % (Auto) 7.9 L [place] % (Auto) 7.5 Eos % (Auto) 0.1 Baso % (Auto) 0.3 Absolute Neuts (auto) 11.0 H Absolute Lymphs (auto) 1.04 Nucleated RBC % 0 Specimen Type Sample Site pH Bicarbonate Actual Total CO2 Base Excess O2 Saturation ABG pCO2 ABG pO2 O2 Delivery Device Sodium 132 L Potassium 6.7 H* Chloride 104 Carbon Dioxide 11.0 L Anion Gap 17 H BUN 56 H Creatinine 3.87 H Estim Creat Clear Calc 11.93 Est GFR (MDRD) Af Amer 15 L Est GFR (MDRD) Non-Af 13 L BUN/Creatinine Ratio 14.5 Glucose 699 H* Hemoglobin A1c Calcium 7.5 L Magnesium Total Bilirubin 0.40 AST 19 ALT 14 Alkaline Phosphatase 61 Troponin I 0.055 H Total Protein 4.9 L Albumin 2.6 L Globulin 2.3 Albumin/Globulin Ratio 1.1 Triglycerides 262 H Cholesterol 93 LDL Cholesterol 12 VLDL Cholesterol 52 H HDL Cholesterol 29 L COVID-19 (MARISA) POC Glucose 08/27/20 08/27/20 08/27/20 06:25 07:09 08:07 WBC RBC Hgb Hct MCV MCH MCHC RDW Std Deviation RDW Coeff of Iron Plt Count MPV Immature Gran % (Auto) Neut % (Auto) Lymph % (Auto) [place] % (Auto) Eos % (Auto) Baso % (Auto) Absolute Neuts (auto) Absolute Lymphs (auto) Nucleated RBC % Specimen Type ART Sample Site R Brach pH 7.06 L* Bicarbonate Actual 10.2 L Total CO2 11 Base Excess -20 L O2 Saturation 91 L ABG pCO2 36.0 ABG pO2 86 O2 Delivery Device Room Air Sodium Potassium Chloride Carbon Dioxide Anion Gap BUN Creatinine Estim Creat Clear Calc Est GFR (MDRD) Af Amer Est GFR (MDRD) Non-Af BUN/Creatinine Ratio Glucose Hemoglobin A1c 7.6 H Calcium Magnesium Total Bilirubin AST ALT Alkaline Phosphatase Troponin I Total Protein Albumin Globulin Albumin/Globulin Ratio Triglycerides Cholesterol LDL Cholesterol VLDL Cholesterol HDL Cholesterol COVID-19 (MARISA) POC Glucose > 500 H* 08/27/20 09:25 WBC RBC Hgb Hct MCV MCH MCHC RDW Std Deviation RDW Coeff of Iron Plt Count MPV Immature Gran % (Auto) Neut % (Auto) Lymph % (Auto) [place] % (Auto) Eos % (Auto) Baso % (Auto) Absolute Neuts (auto) Absolute Lymphs (auto) Nucleated RBC % Specimen Type Sample Site pH Bicarbonate Actual Total CO2 Base Excess O2 Saturation ABG pCO2 ABG pO2 O2 Delivery Device Sodium Potassium Chloride Carbon Dioxide Anion Gap BUN Creatinine Estim Creat Clear Calc Est GFR (MDRD) Af Amer Est GFR (MDRD) Non-Af BUN/Creatinine Ratio Glucose Hemoglobin A1c Calcium Magnesium Total Bilirubin AST ALT Alkaline Phosphatase Troponin I Total Protein Albumin Globulin Albumin/Globulin Ratio Triglycerides Cholesterol LDL Cholesterol VLDL Cholesterol HDL Cholesterol COVID-19 (MARISA) Pending POC Glucose Clinical Impression(s) from Imaging Studies Chest X-Ray 08/26/20 18:42 IMPRESSION: There are findings consistent with COPD. There is no evidence of acute chest disease. Electronically Signed: Gorge Prince MD at 19:19 EDT , Service support , Current Medications Acetaminophen (Acetaminophen 325 Mg Tablet) 650 mg PO Q6H PRN PRN PRN Reason: Pain Score 1-10/Temp > 100.7 F Al Hydroxide/Mg Hydroxide (Mag Hydrox/Al Hydrox/Simeth 30 Ml Udc) 30 ml PO Q6H PRN PRN PRN Reason: Gastric Burning Albuterol Sulfate (Albuterol 2.5 Mg/3 Ml Vial.Neb.) 2.5 mg INHALATION Q2H PRN PRN PRN Reason: Dyspnea, wheezing Last Admin: 08/26/20 22:14 Dose: 2.5 mg Documented by: Albuterol/Ipratropium (Ipratropium/Albuterol Sulfate 3 Ml Ampul.Neb) 3 ml INHALATION Q6HWA.RT LANCE Aspirin (Aspirin E.C. 81 Mg Tablet) 81 mg PO DAILY LANCE Atorvastatin Calcium (Atorvastatin Calcium 20 Mg Tablet) 20 mg PO QHS LANCE Last Admin: 08/26/20 22:47 Dose: 20 mg Documented by: Clopidogrel Bisulfate (Clopidogrel Bisulfate 75 Mg Tablet) 75 mg PO DAILY [facility] Dextrose (Dextrose 50%-Water 25 Gm/50 Ml Disp.Syrin) 0 gm IV X1 PRN; Protocol PRN Reason: Hypoglycemia Protocol Gabapentin (Gabapentin 300 Mg Capsule) 300 mg PO QHS [facility] Last Admin: 08/26/20 22:47 Dose: 300 mg Documented by: Guaifenesin (Guaifenesin 10 Ml Udc (200mg/10ml)) 20 ml PO Q4H PRN PRN PRN Reason: COUGH Heparin Sodium (Porcine) (Heparin Injection (Vial) 5,000 Unit/Ml Vial) 5,000 unit SC Q12 [facility] Last Admin: 08/26/20 22:46 Dose: 5,000 unit Documented by: Sodium Chloride () 1,000 mls @ 125 mls/hr IV .Q8H [facility] Last Admin: 08/27/20 07:05 Dose: 125 mls/hr Documented by: Norepinephrine Bitartrate 8 mg (/ Sodium Chloride) 250 mls @ 9.375 mls/hr CONT INF .[id number] [facility]; Protocol Insulin Human Lispro 100 unit/ (Sodium Chloride) 100 mls @ 4.89 mls/hr IV .[id number] [facility]; Protocol Last Admin: 08/27/20 09:11 Dose: 0.1 units/kg/hr, 4.9 mls/hr Documented by: Sodium Chloride () 1,000 mls @ 250 mls/hr IV .Q4H [facility] Stop: 08/27/20 12:26 Sodium Chloride () 1,000 mls @ 999 mls/hr IV .Q1H1M ONE Stop: 08/27/20 10:00 Last Admin: 08/27/20 09:19 Dose: 999 mls/hr Documented by: Sodium Bicarbonate 150 meq/ (Dextrose) 1,150 mls @ 200 mls/hr IV .Q5H45M [facility] Influenza Virus Vaccine Quadrival (Influenza Vaccine (6mos+)/Pf 0.5 Ml Syringe) 0.5 ml IM .ONCE ONE Stop: 08/27/20 10:01 Melatonin (Melatonin 3 Mg Tablet) 3 mg PO QHS PRN PRN PRN Reason: INSOMNIA Metoprolol Tartrate (Metoprolol Tartrate 50 Mg Tablet) 50 mg PO BID [facility] Last Admin: 08/26/20 22:55 Dose: Not Given Documented by: Midodrine (Midodrine Hcl 5 Mg Tablet) 10 mg PO TID [facility] Last Admin: 08/27/20 07:02 Dose: 10 mg Documented by: Morphine Sulfate (Morphine 2 Mg/Ml Syringe) 2 mg IV Q3H PRN PRN PRN Reason: Pain Score 6-10 Nicotine (Nicotine 21 Mg Patch) 21 mg TRANSDERM. DAILY [facility] Last Admin: 08/27/20 03:46 Dose: 21 mg Documented by: Nicotine Polacrilex (Nicotine Polacrilex 2 Mg Gum) 2 mg PO Q2H PRN PRN PRN Reason: nicotine cravings Nitroglycerin (Nitroglycerin (Inpatient Use) 0.4 Mg Tab.Subl) 0.4 mg SUBLINGUAL Q5M PRN PRN Reason: CARDIAC/CHEST PAIN Non-Formulary Medication (Insulin Basal Pump (Pt's Own) [Pump, Basal]) 1 unit SC UD [facility] Ondansetron HCl (Ondansetron 4 Mg/2 Ml Vial) 4 mg IV Q8H PRN PRN PRN Reason: NAUSEA/VOMITING Oxycodone HCl (Oxycodone 5 Mg Tablet) 5 mg PO Q4H PRN PRN PRN Reason: Pain Score 4-5 Prochlorperazine Edisylate (Prochlorperazine 10 Mg/2 Ml Vial) 5 mg IV Q4H PRN PRN PRN Reason: Breakthrough Nausea/Vomiting Psyllium Hydrophilic Mucilloid (Psyllium 1 Packet) 1 packet PO DAILY PRN PRN PRN Reason: Constipation Senna/Docusate Sodium (Senna/Docusate Sodium 1 Tablet) 2 tablet PO BID PRN PRN PRN Reason: Constipation Sodium Chloride (0.9% Saline Lock 10 Ml Syringe) 10 - 40 ml IV UD PRN PRN Reason: SALINE FLUSH Last Admin: 08/26/20 22:47 Dose: 10 ml Documented by: Throat Lozenges (Benzocaine/Menthol 1 Lozenge) 1 lozenge MUCOUS MEM Q2H PRN PRN PRN Reason: SORE THROAT Assessment/Plan Active and Suspected Problems (Last Reviewed 11/19/19 @ 10:29 by Radha Sandhu PA, PA) Chest pain (Acute) S/P PTCA (percutaneous transluminal coronary angioplasty) (Acute) Diabetes (Acute) Hypotension (Acute) Renal insufficiency (Acute) Hyperkalemia (Acute) RECOMMENDATIONS: 1. Continue supplemental IV fluid hydration. 2. Hold antihypertensives. 3. Start continuous insulin infusion and initiate DKA protocol. 4. Monitor BMP serially and replete electrolytes as needed. 5. Defer work-up of chest pain to cardiology. IMPRESSIONS: 1. Hypotension Suspect likely secondary to intravascular volume depletion in the setting of diabetic ketoacidosis. Continue IV volume resuscitation. 2. Diabetic ketoacidosis Likely secondary to insulin pump nonfunctioning. Continue management per protocol with supplemental IV fluids and continuous insulin infusion. Monitor serial electrolytes and replete as indicated. 3. Chest pain with indeterminate cardiac enzymes/history of coronary artery disease status post PCI Cardiology is currently following to assist with medical management. Echocardiogram will be obtained and troponins trended. 4. History of COPD and chronic tobacco dependency The patient is currently maintaining appropriate oxygen saturations on room air. Continue bronchodilator therapy as ordered. Tobacco cessation counseling was provided. Nicotine replacement therapy will be continued. 5. Diabetes mellitus/hypertension/hyperlipidemia/anemia Complicates care, management, recovery and prognosis. Continue home medications as indicated. This note was generated with [email or web address] dictation software. It may contain incorrect words, spelling, and punctuation that were not noted in checking the note before signing. Inpatient E&M: 02922 Init Hosp L3
[2020-08-27] MEDS: 0.9% Normal Saline 1,000 ML 250 ML IV ×2 (10:00→15:15)
--- NOTE | 2020-08-27 10:38 | CON.PCM_ITS ---
Problem List (1) Chest pain Status: Acute Qualifiers: Chest pain type: unspecified Qualified Code(s): R07.9 - Chest pain, unspecified (2) Atherosclerosis of coronary artery of [place] heart without angina pectoris Status: Chronic Qualifiers: Coronary Disease-Associated Artery/Lesion type: [place] artery Qualified Code(s): I25.10 - Atherosclerotic heart disease of [place] coronary artery without angina pectoris Comment: PCI-MIESHA-Mid RCA w/ 2.5 x 28 mm Promus Synergy 01/15/2018; PCI-MIESHA-Mid LCx w/ 3.0 x 16 mm Promus Synergy 02/04/2018 (3) S/P PTCA (percutaneous transluminal coronary angioplasty) Status: Acute (4) Hyperlipidemia Status: Chronic Qualifiers: Hyperlipidemia type: pure hypercholesterolemia Qualified Code(s): E78.00 - Pure hypercholesterolemia, unspecified; E78.0 - Pure hypercholesterolemia (5) Essential (primary) hypertension Status: Chronic (6) Diabetes Status: Acute (7) Chronic obstructive pulmonary disease Status: Chronic Qualifiers: COPD type: unspecified COPD Qualified Code(s): J44.9 - Chronic obstructive pulmonary disease, unspecified (8) Hypotension Status: Acute (9) Renal insufficiency Status: Acute (10) Hyperkalemia Status: Acute Reason for Consult Date of Consultation: 08/27/20 History of Present Illness: The patient is a 59 year old white female with a past cardiovascular history which is included underlying CAD, PCI, hyperlipidemia, hypertension, superimposed upon diabetes mellitus and COPD who now presents for concerns of chest discomfort, shortness of breath/dyspnea, nausea, emesis, and noting that her insulin pump has not been functioning appropriately with subsequent findings of hypotension, hyperglycemia, and hyperkalemia. Based upon her ongoing multiple medical issues she was placed in the ICU for further evaluation and care. She states she been having somewhat of a jabbing sensation across her chest. It is unclear as to whether or not this is similar to any of the discomfort she has had prior to her previous PCI procedures. There is been no report of orthopnea or PND or peripheral pitting edema. There has been no report of loss of consciousness. Her troponin I levels have been reported as terminated. Her ECG demonstrated sinus rhythm with left axis deviation with a septal NC of indeterminate age cannot be excluded and prominent/peaked T waves potentially compatible with her hyperkalemia. A bedside quick look hand-held transthoracic echocardiogram was performed. Based upon the images obtained she appeared to have overall preserved right and left ventricular systolic function and no obvious hemodynamically significant valvular heart disease and no obvious pericardial effusion. [] Past Medical History Allergies/Adverse Reactions: Allergies No Known Allergies Allergy (Verified 08/26/20 20:18) Home Medications: Ambulatory Orders Medication Instructions Recorded Albuterol IH (ProAir) [Proair Hfa] 2 puff INHALATION Q6H PRN PRN 06/21/18 Ergocalciferol [Vitamin D] 50,000 unit PO Q7D 06/21/18 Gabapentin [Neurontin] 300 mg PO QHS 06/21/18 Simvastatin [Zocor] 40 mg PO QHS 06/21/18 Tiotropium Eden [Spiriva] 18 mcg IH DAILY 06/21/18 Albuterol Aerosols [Ventolin 2.5 mg INHALATION Q2H PRN PRN #1 06/23/18 Aerosols] box losartan 25 mg tablet 25 mg PO DAILY 11/19/19 metoprolol tartrate 50 mg tablet 50 mg PO BID #180 tab 11/19/19 nitroglycerin 0.4 mg sublingual 0.4 mg SUBLINGUAL Q5-15M PRN #25 11/19/19 tablet tab aspirin 81 mg tablet,delayed 81 mg PO DAILY 12/31/19 release clopidogrel 75 mg tablet 75 mg PO DAILY #90 tab 12/31/19 Insulin Basal Pump (Pt's Own) 0 unit SC UD 08/26/20 [Pump, Basal] Past Medical History (Chronic Problems): Chronic Problems (Last Reviewed 11/19/19 @ 10:29 by Radha Sandhu PA, PA) Chronic obstructive pulmonary disease (Chronic) Dizziness (Chronic) Intermittent palpitations (Chronic) Atherosclerosis of coronary artery of [place] heart without angina pectoris (Chronic) PCI-MIESHA-Mid RCA w/ 2.5 x 28 mm Promus Synergy 01/15/2018; PCI-MIESHA-Mid LCx w/ 3.0 x 16 mm Promus Graffiti 02/04/2018 History of coronary artery stent placement (Chronic 02/04/18) PCI-MIESHA-Mid RCA w/ 2.5 x 28 mm Promus Synergy 01/15/2018; PCI-MIESHA-Mid LCx w/ 3.0 x 16mm Promus Graffiti 02/04/2018 Essential (primary) hypertension (Chronic) Hyperlipidemia (Chronic) Nicotine dependence (Chronic) Surgical History: appendectomy, hysterectomy, - - . 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 Paternal Family History: Family History (Last Reviewed 11/19/19 @ 10:29 by Radha Sandhu PA, PA) Mother Heart disease COPD (chronic obstructive pulmonary disease) Lupus Daughter Growth disorder Down syndrome Fibromyalgia Grandfather Colon cancer Diabetes Grandmother Heart disease CVA (cerebral vascular accident) Diabetes Pulmonary disease Sister Hypertension Kidney disease History Items: Heart Disease Lives: Spouse/ Significant Other Smoking Status: Current every day smoker Tobacco Use: Cigarettes Alcohol: None Drugs: None Review of Systems - Review of Systems General: Denies: Fever, Night Sweats, Fatigue Cardiovascular: Reports: Chest Discomfort, Shortness of Breath. Denies: Orthopnea, PND, Peripheral Edema, Palpitations, Lightheadedness, Dizziness, Near Syncope, Syncope Respiratory: Reports: Shortness of Breath. Denies: Cough, Sputum Production, Hemoptysis Gastrointestinal: Reports: Nausea, Emesis. Denies: Hematemesis, Hematochezia, Melena Genitourinary: Denies: Dysuria, Hematuria Skin: Denies: Rash Subjectve: Is a thin 59-year-old white female who appears to be resting reasonably comfortably in the supine position at the moment in no acute distress. Objective: Vital Signs Temp Pulse Resp BP Pulse Ox 97.8 F 68 16 78/39 L 96 08/27/20 07:00 08/27/20 08:20 08/27/20 07:00 08/27/20 07:00 08/27/20 07:00 Oxygen Delivery Method Room Air Weight: 107 lb 12.897 oz Body Mass Index (BMI) 17.4 Finger Stick Blood Glucose 552 Intake and Output for Last 24 Hours 08/25/20 08/26/20 08/27/20 23:59 23:59 23:59 Intake Total 3815.16 / 3815.16 Balance 381.16 / 5.16 General: Awake, Alert, Oriented x 3, Cooperative, No Acute Distress HEENT: Atraumatic, Normocephalic, PERRL, EOMI, Sclera Non Icteric Neck: Supple, Good ROM, No JVD Lungs: Clear to auscultation Cardiovascular: Regular Rhythm, Normal S1, Normal S2 Abdomen: Bowel Sounds Present, Soft Extremities: No edema Neurological: No Focal Motor or Sensory Deficit Psych/Mental Status: Appropriate 08/26/20 18:45: WBC 11.4 H, RBC 3.83 L, Hgb 11.5 L, Hct 36.9 L, MCV 96.3, MCH 30.0, MCHC 31.2 L, Plt Count 220, MPV 10.2, Immature Gran % (Auto) 0.400, Neut % (Auto) 65.0, Lymph % (Auto) 18.9 L, Love % (Auto) 11.9 H, Eos % (Auto) 3.1, Baso % (Auto) 0.7, Absolute Neuts (auto) 7.4, Nucleated RBC % 0 08/26/20 18:45: Sodium 132 L, Potassium 5.9 H, Chloride 98, Carbon Dioxide 19.0 L, Anion Gap 15, BUN 54 H, Creatinine 3.32 H, Est GFR (MDRD) Af Amer 18 L, Est GFR (MDRD) Non-Af 15 L, BUN/Creatinine Ratio 16.3, Glucose 361 H, Calcium 9.1, Troponin I 0.050 H 08/26/20 18:45: Magnesium 2.0 08/26/20 22:00: Sodium 135 L, Potassium 5.4 H, Chloride 106, Carbon Dioxide 18.0 L, Anion Gap 11, BUN 52 H, Creatinine 3.01 H, Est GFR (MDRD) Af Amer 20 L, Est GFR (MDRD) Non-Af 17 L, BUN/Creatinine Ratio 17.3, Glucose 290 H, Calcium 8.0 L 08/26/20 22:00: Troponin I 0.052 H 08/27/20 00:15: Troponin I 0.055 H 08/27/20 06:25: WBC 13.2 H, RBC 3.01 L, Hgb 9.1 L, Hct 30.8 L, MCV 102.3 H D, MCH 30.2, MCHC 29.5 L D, Plt Count 168, MPV 10.6, Immature Gran % (Auto) 0.800, Neut % (Auto) 83.4 H, Lymph % (Auto) 7.9 L, Love % (Auto) 7.5, Eos % (Auto) 0.1, Baso % (Auto) 0.3, Absolute Neuts (auto) 11.0 H, Nucleated RBC % 0 08/27/20 06:25: Sodium 132 L, Potassium 6.7 H*, Chloride 104, Carbon Dioxide 11.0 L, Anion Gap 17 H, BUN 56 H, Creatinine 3.87 H, Est GFR (MDRD) Af Amer 15 L , Est GFR (MDRD) Non-Af 13 L, BUN/Creatinine Ratio 14.5, Glucose 699 H*, Calcium 7.5 L, Total Bilirubin 0.40, Triglycerides 262 H, Cholesterol 93, LDL Cholesterol 12, VLDL Cholesterol 52 H, HDL Cholesterol 29 L 08/27/20 06:25: Hemoglobin A1c 7.6 H 08/27/20 08:07: pH 7.06 L*, Bicarbonate Actual 10.2 L, Base Excess -20 L, O2 Saturation 91 L, ABG pCO2 36.0, ABG pO2 86 Rhythm: Sinus rhythm EKG: As noted above ECHO: 01-12-18 Interpretation Summary Normal LV size. Left ventricular systolic function is normal. The estimated ejection fraction is 65 %. Mild (1+) eccentric mitral valve insufficiency. Mild (1+) tricuspid valve insufficiency. Pulmonary artery systolic pressure is 35 mmHg. Stress Test: 04-09-19 Stress Test Report Exercise myocardial perfusion stress test. 58-year-old lady with a history of coronary artery disease status post previous non-ST elevation microinfarction. Medications: Plavix Humalog Lopressor Zocor. Stress protocol: Resting EKG demonstrates normal sinus rhythm with a rate of 78 bpm normal intervals are noted resting blood pressure 150/78 mmHg. The patient exercised according to regular Rios protocol for total duration of 8 minutes and 30 seconds the maximum heart rate attained was 129 bpm which was 80% of maximum predicted heart rate the maximum workload was 10.1 metabolic equivalents. At rest there were no ST or T wave changes noted suggest ischemia peak exercise upsloping ST changes only were noted with no meet the criteria for ischemia. No clinical angina was noted. Myocardial perfusion protocol. 11.7 mCi of technetium 99m sestamibi was injected at rest. The patient exercised for 8-1/2 minutes and at peak exercise 32.1 mCi of technetium 99m sestamibi was injected stress images were obtained stress and rest images were reconstructed in comparing the short axis vertical and horizontal long axis. Gated images were also obtained Perfusion SPECT analysis: Review of the stress images demonstrate normal uptake of tracer noted in all areas of the myocardium. The resting images similarly demonstrate normal uptake of tracer noted in all areas of the myocardium. No areas of reversibility are noted suggest ischemia. Gated SPECT analysis: The gated ejection fraction is noted to be 77%. Conclusion: Normal exercise myocardial perfusion stress test at a high workload. Preserved ejection fraction. Cardiac Cath: 01-15-18 CONCLUSIONS Severe 2 vessel disease with RCA and LCX RECOMMENDATIONS Referred for immediate PCI DESCRIPTION OF PROCEDURE The patient arrived to the procedure lab. The risks and benefits of the procedure as well as a full description of our services here and current unavailability of surgical backup were fully explained to the patient and/or their significant other prior to the catheterization. The Timeout was completed, verifying the correct patient and procedure. The patient's procedural site was prepped and draped in the usual fashion. Local anesthetic was given subcutaneously to right groin region with Lidocaine 2%. Using a modified Seldinger technique, arterial access was obtained via the right femoral artery, a 5Fr sheath was inserted. Left Coronary Artery selective angiography was performed in multiple views using a 5 Fr. JL3.5 catheter. Right Coronary Artery selective angiography was then performed in multiple views using a 5 Fr. 3DRC (Huey) catheter.The arterial sheath was sutured in place and capped CORONARY ANGIOGRAPHY DOMINANCE: Co- Dominant LEFT HEART ASSESSMENT Left Ventricular Ejection Fraction: by Echo 65 % Normal Left Ventricular systolic function LEFT MAIN: Angiographically normal, Angiographically normal LEFT ANTERIOR DECENDING ARTERY: Mild luminal irregularities CIRCUMFLEX ARTERY: OSTIAL CIRC: 30 % Stenosis PROX CIRC: 70 % Stenosis MID CIRC: 80 % Stenosis RIGHT CORONARY ARTERY: MID RCA: 80 % Stenosis PCI: 01-15-18 CONCLUSIONS Successful PTCA/MIESHA of the of mid LCX with a 3.0 x 16 Promus Synergy at 10 yasmeen; 80%-->0%, no dissection. RECOMMENDATIONS Highly recommend quitting all tobacco products Follow up with primary single end sewer Risk factor modification ASA Indefinitley Plavix for at least 12 months Routine post interventional care Refer for Outpatient Cardiac Rehab Manual sheath removal per protocol Follow up with Dr. Robbins Medical management of LAD. IV fluid hydration post procedure. Cardiac rehab in 2 weeks. DESCRIPTION OF PROCEDURE The patient arrived to the procedure lab. The risks and benefits of the procedure as well as a full description of our services here and current unavailability of surgical backup were fully explained to the patient and/or their significant other prior to the catheterization. The Timeout was completed, verifying the correct patient and procedure. The patient's procedural site was prepped and draped in the usual fashion. Local anesthetic was given subcutaneously to right groin region with Lidocaine 2%. Using a modified Seldinger technique, arterial access was obtained via the right femoral artery, a 6Fr sheath was inserted.. EBU 3.5 Guide catheter was inserted and engaged into the LCA. BMW Guide wire was advanced to the Circumflex. 2.0X12 EMERGE Balloon catheter was inserted. Balloon catheter was advanced across lesion in the circumflex, mid. PTCA balloon inflated at 10 atms for 15 secs PTCA balloon inflated at 8 atms for 10 secs PTCA balloon inflated at 8 atms for 20 secs PTCA balloon inflated at 8 atms for 15 secs 3.0X16 SYNERGY Drug Eluting stent was inserted Drug Eluting stent was advanced across the lesion in the circumflex, mid. Angiogram performed post stent deployment.. . The arterial sheath was sutured in place and capped. INTERVENTION INFORMATION LESION SITE: Circumflex (Mid) Lesion Complexity: Non-High/Non-C, lesion at bifurcation: No, thrombus present: No, lesion length: 16 mm, culprit lesion: Yes Pre Stenosis: 80 % Pre intervention KARY flow: 3 PROCEDURE: Drug Eluting Stent with pre dilatation. Post Stenosis: 0 % Post intervention KARY flow: 3 Lesion Devices: East .014 BMW [place] Straight 190cm Medtronic 6 Fr EBU3.5 100cm Guide Catheter Kilo Sci EMERGE MR 2.00x12 BALLOON Kilo Sci Synergy MR MIESHA 3.00x16 CXR: IMPRESSION: There are findings consistent with COPD. There is no evidence of acute chest disease. Assessment/Plan 1. Chest pain The patient presented with an atypical chest discomfort. Thus far her cardiac enzymes have been indeterminant. Her ECG has demonstrated the aforementioned findings. She underwent a bedside hand-held quick look transthoracic echocardiogram with the findings as noted above. At the moment she will be followed. Her enzymes and her ECG will be followed. She will be asked to have a formal transthoracic echocardiogram. Depending upon her clinical findings she may or may not need additional cardiovascular evaluation/care. 2. CAD status post PCI She has undergone diagnosis of CAD in the past before and has required PCI. At the moment she will continue to be followed as noted above. Her medications can be adjusted as needed taken into consideration concerns of her renal insufficiency, her electrolyte dysfunction, and her hypotension. 3. Hyperlipidemia She will continue lipid-lowering therapy. 4. Hypertension She has a history of hypertension. The moment she is hypotensive. Her medications will have to be adjusted accordingly. 5. Diabetes mellitus She will continue evaluation care per internal medicine and pulmonology/critical care medicine for concerns of diabetes mellitus and DKA. 6. COPD She has a history of underlying COPD. She will continue evaluation care by internal medicine and pulmonology and critical care medicine. 7. Hypotension She has been found to be hypotensive. There is concern this is related to an underlying metabolic issue as opposed to a primary cardiovascular issue. At the moment she is going to continue supportive care which apparently is including IV fluids and potentially IV vasopressors. 8. Renal insufficiency She has been found to have renal insufficiency. Again this may be related to her diabetes mellitus and DKA and volume shifts. She has been treated with IV fluids. Her renal function will need to be followed. 9. Hyperkalemia Again this appears to be related to her underlying metabolic related issues and renal insufficiency. She is being treated for hyperkalemia. Comment: The patient's case has been discussed and reviewed with Dr. Cat. This note was generated using a voice recognition system and there may be incorrect words, spelling or punctuation that were not noted when reviewing the office note prior to saving.
[2020-08-27] MEDS: 0.9% Saline Lock 10 ML Syringe IV (11:15)
[2020-08-27 11:16] LABS: Bedside Glucose > 500 mg/dL (70-110)
[2020-08-27 11:16] LABS: Bedside Glucose > 500 mg/dL (70-110)
--- NOTE | 2020-08-27 11:31 | ECHOD_ITS ---
Reason For Study: CAD/ASHD Procedure This was a 2D Doppler, Color Flow transthoracic echocardiogram. The study was technically difficult. Exam performed portable in ICU/CCU. Left Ventricle Normal LV size. Left ventricular systolic function is hyperdynamic. The estimated ejection fraction is 75 %. No evidence for diastolic dysfunction. No regional wall motion abnormalities noted. Right Ventricle Normal RV size. Normal systolic function. Atria Normal left atrium. Normal right atrium. No doppler evidence for ASD. Mitral Valve There is no mitral annular calcification. Normal mitral valve. Trivial mitral valve insufficiency. Tricuspid Valve Normal tricuspid valve. Mild to moderate (1-2+) eccentric tricuspid valve insufficiency. Right ventricular systolic pressure estimated to be 50 mmHg. Aortic Valve Trisinus/trileaflet aortic valve. Mild focal aortic valve calcification. Pulmonic Valve The pulmonic valve is not well visualized. Great Vessels The aortic root is not well visualized. Pericardium/Pleural No pericardial effusion. MMode/2D Measurements & Calculations LVIDd: 3.7 cm IVSd: 0.96 cm LA dimension: 3.4 cm LVIDs: 1.5 cm LVPWd: 1.0 cm FS: 58.8 % LAV(MOD-sp4): 55.4 ml LA A4 area: 18.8 cm2 RA A4 area: 14.8 cm2 Time Measurements MV dec time: 0.17 sec Doppler Measurements & Calculations MV E max shoaib: 101.0 cm/sec Lat Peak E' Shoaib: 11.1 cm/sec Med Peak E' Shoaib: 9.7 cm/sec MV A max shoaib: 78.7 cm/sec E/E' lat: 9.1 E/E' med: 10.4 MV E/A: 1.3 MV V2 max: 133.3 cm/sec MV P1/2t max shoaib: 134.3 cm/sec Ao V2 max: 148.7 cm/sec MV max P.1 mmHg MV P1/2t: 72.7 msec Ao max P.9 mmHg MV V2 mean: 72.0 cm/sec MV dec slope: 541.1 cm/sec2 MV mean P.5 mmHg MVA(P1/2t): 3.0 cm2 MV V2 VTI: 29.7 cm LV V1 max: 108.9 cm/sec PA V2 max: 114.6 cm/sec TR max shoaib: 324.4 cm/sec LV V1 max P.8 mmHg TR max P.1 mmHg Interpretation Summary The study was technically difficult. Left ventricular systolic function is hyperdynamic. The estimated ejection fraction is 75 %. Trivial mitral valve insufficiency. Mild to moderate (1-2+) eccentric tricuspid valve insufficiency. Mild focal aortic valve calcification. Right ventricular systolic pressure estimated to be 50 mmHg. No evidence for diastolic dysfunction. Ordering Physician: Alex Bobby Referring Physician: Bird Lujan MD Performed By: Justin Delgado RCS
[2020-08-27 11:57] LABS: Anion Gap 17 (5-15); BUN 57 mg/dL (7-18); BUN/Creat Ratio 14.8 RATIO (10-20); Calcium,Total 7.1 mg/dL (8.5-10.1); Chloride 108 mmol/L (98-107); Creatinine, Serum 3.86 mg/dL (0.55-1.02); EST Glomerular Filtration Rate 13 mL/min (>60); Est Glom Filt Rate - Afr Amer 15 mL/min (>60); Estimated Creatinine Clearance 11.96 ml/min; Glucose 654 mg/dL (74-106); Magnesium 1.7 mg/dL (1.6-2.6); Potassium 4.9 mmol/L (3.5-5.1); Sodium Level 137 mmol/L (136-145)
[2020-08-27] MEDS: Heparin Injection (Vial) 5,000 UNIT/ML VIAL 5000 UNIT SC ×2 (12:14→21:14)
[2020-08-27] MEDS: Aspirin E.C. 81 MG Tablet PO (12:15)
[2020-08-27] MEDS: Clopidogrel Bisulfate 75 MG Tablet PO (12:15)
[2020-08-27 12:23] LABS: Osmolality, Serum 331 mOsm/KG (275-295)
[2020-08-27 12:45] LABS: Bedside Glucose > 500 mg/dL (70-110)
[2020-08-27 13:11] LABS: Bedside Glucose > 500 mg/dL (70-110)
[2020-08-27] MEDS: Ipratropium/Albuterol Sulfate 3 ML AMPUL.NEB INHALATION ×2 (13:24→18:52)
[2020-08-27 14:21] LABS: Bedside Glucose 462 mg/dL (70-110)
--- NOTE | 2020-08-27 14:36 | CPS ---
Critical ABG results given to at 0810 on 08/27/20
[2020-08-27 15:36] LABS: Bedside Glucose 451 mg/dL (70-110)
[2020-08-27 16:13] LABS: Anion Gap 10 (5-15); BUN 56 mg/dL (7-18); BUN/Creat Ratio 14.6 RATIO (10-20); Calcium,Total 6.9 mg/dL (8.5-10.1); Chloride 112 mmol/L (98-107); Creatinine, Serum 3.83 mg/dL (0.55-1.02); EST Glomerular Filtration Rate 13 mL/min (>60); Est Glom Filt Rate - Afr Amer 15 mL/min (>60); Estimated Creatinine Clearance 13.46 ml/min; Glucose 459 mg/dL (74-106); Potassium 3.9 mmol/L (3.5-5.1); Sodium Level 139 mmol/L (136-145)
[2020-08-27 17:11] LABS: Bedside Glucose 419 mg/dL (70-110)
[2020-08-27 17:11] LABS: Bedside Glucose 388 mg/dL (70-110)
[2020-08-27 18:16] LABS: Bedside Glucose 360 mg/dL (70-110)
[2020-08-27 19:11] LABS: Bedside Glucose 282 mg/dL (70-110)
[2020-08-27] MEDS: TITRATION PARAMETER CHANGE 1 EACH IV (19:25)
[2020-08-27 20:21] LABS: Bedside Glucose 240 mg/dL (70-110)
[2020-08-27] MEDS: Atorvastatin Calcium 20 MG Tablet PO (21:13)
[2020-08-27] MEDS: Gabapentin 300 MG Capsule PO (21:14)
[2020-08-27 22:46] LABS: Bedside Glucose 143 mg/dL (70-110)
[2020-08-27 23:41] LABS: Bedside Glucose 220 mg/dL (70-110)
[2020-08-28] VITALS (27 sets, daily range): BP systolic 79–141; BP diastolic 37–69; PULSE 77–100; RESP 16–26; TEMP 36.5–37.8; O2SAT 91–98
[2020-08-28 00:29] LABS: Anion Gap 9 (5-15); BUN 54 mg/dL (7-18); BUN/Creat Ratio 15.9 RATIO (10-20); Calcium,Total 6.7 mg/dL (8.5-10.1); Chloride 116 mmol/L (98-107); Creatinine, Serum 3.39 mg/dL (0.55-1.02); EST Glomerular Filtration Rate 15 mL/min (>60); Est Glom Filt Rate - Afr Amer 18 mL/min (>60); Estimated Creatinine Clearance 15.21 ml/min; Glucose 97 mg/dL (74-106); Potassium 3.2 mmol/L (3.5-5.1); Sodium Level 145 mmol/L (136-145)
[2020-08-28 00:55] LABS: Bedside Glucose 95 mg/dL (70-110)
[2020-08-28] MEDS: TITRATION PARAMETER CHANGE 1 EACH IV (01:22)
[2020-08-28] MEDS: Dextrose 50%-Water 25 GM/50 ML DISP.SYRIN IV (02:05)
[2020-08-28] MEDS: 0.9% Saline Lock 10 ML Syringe IV ×3 (02:08→17:20)
[2020-08-28] MEDS: Potassium Chloride 40 MEQ in 0.9% Normal Saline 1,000 ML 125 MEQ IV (02:13)
[2020-08-28 02:31] LABS: Bedside Glucose 50 mg/dL (70-110)
[2020-08-28 02:35] LABS: Bedside Glucose 116 mg/dL (70-110)
--- NOTE | 2020-08-28 03:33 | NURSING ---
Pt straight cathed at this time for 650 mL per verbal order of Dr. Johnson as pt was unable to void after being bladder scanned for 615 mL.
[2020-08-28 03:37] LABS: Bacteria 0 SEEN /hpf (None Seen); Mucous, Urine 0 SEEN /hpf (<or=2+); Squamous Epithelial Cells - UA 0 SEEN /hpf (5-10); White Blood Cells 0 SEEN /hpf (0-5)
[2020-08-28 03:39] LABS: Color, Urine Yellow (Yellow); Glucose, Dipstick 50 mg/dl (Normal); Ketone-Dipstick 5 mg/dl (Negative); Leukocyte Esterase-Dipstick Negative /ul (Negative); Nitrite-Dipstick Negative (Negative); Occult Blood-Urine 10 /ul (Negative); Protein-Dipstick 30 mg/dl (Negative); Urine Bilirubin Dipstick Negative (Negative); Urine Clarity Clear (Clear); Urine Urobilinogen Normal (Normal)
[2020-08-28 03:46] LABS: Red Blood Cells-Urine 0-5 SEEN /hpf (0-5)
[2020-08-28 03:55] LABS: Urine Sodium 24 mmol/L (Not Establ.)
[2020-08-28 04:06] LABS: Bedside Glucose 137 mg/dL (70-110)
[2020-08-28 04:06] LABS: Bedside Glucose 157 mg/dL (70-110)
[2020-08-28 05:03] LABS: Anion Gap 11 (5-15); BUN 53 mg/dL (7-18); BUN/Creat Ratio 15.9 RATIO (10-20); Calcium,Total 6.8 mg/dL (8.5-10.1); Chloride 113 mmol/L (98-107); Creatinine, Serum 3.34 mg/dL (0.55-1.02); EST Glomerular Filtration Rate 15 mL/min (>60); Est Glom Filt Rate - Afr Amer 18 mL/min (>60); Estimated Creatinine Clearance 15.44 ml/min; Glucose 218 mg/dL (74-106); Potassium 4.1 mmol/L (3.5-5.1); Sodium Level 141 mmol/L (136-145)
[2020-08-28 05:15] LABS: Bedside Glucose 223 mg/dL (70-110)
--- NOTE | 2020-08-28 05:55 | EKG12_ITS ---
Test Reason : AM EKG Blood Pressure : / mmHG Vent. Rate : 085 BPM Atrial Rate : 085 BPM P-R Int : 144 ms QRS Dur : 080 ms QT Int : 390 ms P-R-T Axes : 080 -73 096 degrees QTc Int : 464 ms Normal sinus rhythm Left axis deviation Low voltage QRS Inferior infarct , age undetermined Abnormal ECG When compared with ECG of 27-AUG-2020 09:16, MANUAL COMPARISON REQUIRED, DATA IS UNCONFIRMED Confirmed by MODESTO DAIGLE, NICOLA ([id number]), editor department ARNALDO FENTON ([id number]) on 08/30/2020 2:05:30 PM Referred By: BRAD Confirmed By:NICOLA SALVADOR MD
[2020-08-28 06:25] LABS: Bedside Glucose 237 mg/dL (70-110)
[2020-08-28] MEDS: Ipratropium/Albuterol Sulfate 3 ML AMPUL.NEB INHALATION ×3 (06:54→19:19)
--- NOTE | 2020-08-28 07:02 | PN.CARD_ITS ---
Subjectve: Patient seen and evaluated. Appears to be doing better this morning Objective: Vital Signs Temp Pulse Resp BP Pulse Ox 97.7 F L 93 18 93/46 L 95 08/28/20 00:00 08/28/20 06:55 08/28/20 06:55 08/28/20 05:00 08/28/20 06:55 Oxygen Delivery Method Room Air Weight: 120 lb 5.958 oz Body Mass Index (BMI) 17.4 Finger Stick Blood Glucose 50 Intake and Output for Last 24 Hours 08/26/20 08/27/20 08/28/20 23:59 23:59 23:59 Intake Total 1999.2199. 8017.32 / 8017.32 1250.47 / 1250.47 Output Total 0 / 0 650 / 650 Balance 2199. 8017.32 / 8017.32 600.47 / 600.47 General: Awake, Alert, Oriented x 3 HEENT: PERRL, EOMI, Sclera Non Icteric Neck: Supple, Good ROM, No Lymph Node Enlargement Lungs: Clear to auscultation Cardiovascular: Regular Rhythm, Normal S1, Normal S2, No Murmurs, No Rubs, No Gallops Vascular: No Carotid Bruits, Normal Femoral Pulses, Normal Radial Pulses, Normal Dorsalis Pedal Pulse, Normal Posterior Tibial Pulses Abdomen: Bowel Sounds Present, Soft, Non Tender, No HSM, No Organomegaly Extremities: No Cyanosis, No Clubbing, No edema Musculoskeletal: No Erythema Skin: No Rashes Lymphatic: No Lymph Node Enlargement Neurological: No Focal Motor or Sensory Deficit Psych/Mental Status: Appropriate 08/27/20 06:25: WBC 13.2 H, RBC 3.01 L, Hgb 9.1 L, Hct 30.8 L, MCV 102.3 H D, MCH 30.2, MCHC 29.5 L D, Plt Count 168, MPV 10.6, Immature Gran % (Auto) 0.800, Neut % (Auto) 83.4 H, Lymph % (Auto) 7.9 L, [place] % (Auto) 7.5, Eos % (Auto) 0.1, Baso % (Auto) 0.3, Absolute Neuts (auto) 11.0 H, Nucleated RBC % 0 08/27/20 06:25: Sodium 132 L, Potassium 6.7 H*, Chloride 104, Carbon Dioxide 11.0 L, Anion Gap 17 H, BUN 56 H, Creatinine 3.87 H, Est GFR (MDRD) Af Amer 15 L , Est GFR (MDRD) Non-Af 13 L, BUN/Creatinine Ratio 14.5, Glucose 699 H*, Calcium 7.5 L, Total Bilirubin 0.40, Triglycerides 262 H, Cholesterol 93, LDL Cholesterol 12, VLDL Cholesterol 52 H, HDL Cholesterol 29 L 08/27/20 06:25: Hemoglobin A1c 7.6 H 08/27/20 08:07: pH 7.06 L*, Bicarbonate Actual 10.2 L, Base Excess -20 L, O2 Saturation 91 L, ABG pCO2 36.0, ABG pO2 86 08/27/20 11:10: Sodium 137, Potassium 4.9, Chloride 108 H, Carbon Dioxide 12.0 L , Anion Gap 17 H, BUN 57 H, Creatinine 3.86 H, Est GFR (MDRD) Af Amer 15 L, Est GFR (MDRD) Non-Af 13 L, BUN/Creatinine Ratio 14.8, Glucose 654 H*, Calcium 7.1 L , Magnesium 1.7 08/27/20 11:10: Serum Osmolality 331 H 08/27/20 11:10: Sodium Cancelled, Potassium Cancelled, Chloride Cancelled, Carbon Dioxide Cancelled, Anion Gap Cancelled, BUN Cancelled, Creatinine Cancelled, Est GFR (MDRD) Af Amer Cancelled, Est GFR (MDRD) Non-Af Cancelled, BUN/Creatinine Ratio Cancelled, Glucose Cancelled, Calcium Cancelled 08/27/20 11:10: Glucose Cancelled 08/27/20 15:00: Sodium 139, Potassium 3.9, Chloride 112 H, Carbon Dioxide 17.0 L , Anion Gap 10, BUN 56 H, Creatinine 3.83 H, Est GFR (MDRD) Af Amer 15 L, Est GFR (MDRD) Non-Af 13 L, BUN/Creatinine Ratio 14.6, Glucose 459 H*, Calcium 6.9 L 08/28/20 00:05: Sodium 145, Potassium 3.2 L, Chloride 116 H, Carbon Dioxide 20.0 L, Anion Gap 9, BUN 54 H, Creatinine 3.39 H, Est GFR (MDRD) Af Amer 18 L, Est GFR (MDRD) Non-Af 15 L, BUN/Creatinine Ratio 15.9, Glucose 97, Calcium 6.7 L 08/28/20 03:30: Urine Color Yellow, Urine Clarity Clear, Urine pH 5.0, Ur Specific [place] 1.020, Urine Protein 30 H, Urine Glucose (UA) 50 H, Urine Ketones 5 H, Urine Occult Blood 10 H, Urine Nitrite Negative, Urine Bilirubin Negative, Urine Urobilinogen Normal, Ur Leukocyte Esterase Negative, Urine RBC 0-5 SEEN, Urine WBC 0 SEEN 08/28/20 04:40: Sodium 141, Potassium 4.1, Chloride 113 H, Carbon Dioxide 17.0 L , Anion Gap 11, BUN 53 H, Creatinine 3.34 H, Est GFR (MDRD) Af Amer 18 L, Est GFR (MDRD) Non-Af 15 L, BUN/Creatinine Ratio 15.9, Glucose 218 H, Calcium 6.8 L Rhythm: EKG: ECHO: Stress Test: Cardiac Cath: PCI: CT Surgery: Holter monitor: EPS: PPM: CXR: Chest CT Scan: Medical Necessity - Tobacco Use Smoking Status: Current every day smoker Tobacco Use: Cigarettes Assessment/Plan 1. Chest pain The patient presented with an atypical chest discomfort. Thus far her cardiac enzymes have been indeterminant. Her ECG has demonstrated the aforementioned findings. She underwent a bedside hand-held quick look transthoracic echocardiogram with the findings as noted above. She will undergo a formal transthoracic echocardiogram today. EKG looks normal at this morning. She does have trivially elevated cardiac enzymes. I suspect that the above is secondary to some element of demand ischemia. Would recommend medical therapy for now. Will defer stress testing until patient is stable. 2. CAD status post PCI She has undergone diagnosis of CAD in the past before and has required PCI. At the moment she will continue to be followed as noted above. Her medications can be adjusted as needed taken into consideration concerns of her renal insufficiency, her electrolyte dysfunction, and her hypotension. 3. Hyperlipidemia She will continue lipid-lowering therapy. 4. Hypertension She has a history of hypertension. Her blood pressure appears to be stable at this time. She is on no pressors for now. We would await the results of her echocardiogram. We are going to continue managing her with the critical care physicians. Thank you for allowing me to participate in the care of your patient. Please don't hesitate to call if any issues arise.
--- NOTE | 2020-08-28 07:15 | PN_ITS ---
Subjective: Patient did okay overnight. Patient has reported a worsening tremor. Patient states she has had a tremor like this in the past, but it is not been this difficult to use her hands in the past. Patient did receive a 500 cc bolus overnight secondary to hypotension and has remained on the insulin drip. Discussed with cardiology this morning. We will hold off on a stress test, but patient will have an echocardiogram. Blood pressures were better this morning. Patient was comfortable with using Lantus and sliding scale until her pump can be addressed. General: Alert, Oriented x3, Cooperative, No apparent distress, Well developed, Well nourished, - - Appears older than stated age. No conversational dyspnea. HEENT: Atraumatic, PERRLA, EOMI, Normocephalic, - - No scleral icterus or injection noted. Oral: Moist Mucosa, No Gingival or Mucosal Lesions/ Ulcerations Neck: Supple, No JVD, No Nodes, Trachea Midline Lungs: No rhonchi, No wheeze, No rales, Diminished, - - Fair effort. Symmetric expansion. Cardiovascular: Regular rate, Regular Rhythm, Normal S1, Normal S2, No murmurs, No rub noted, No Gallop Abdomen: Bowel Sounds Present, Soft, Non Tender, Non-Distended Extremities: No clubbing, No cyanosis, No edema Skin: No rashes, No breakdown Musculoskeletal: No Tenderness to Palpation of Joints or Extremities Lymphatic: No Cervical, Supraclavicular, or Inguinal Adenopathy Neurological: Cranial nerves II-XII grossly intact, Neuro grossly intact, Motor Exam 5/5 strength throughout, - - Significant intention tremor Psych/Mental Status: Alert and oriented to time, place, person, mood and affect Vital Signs Temp Pulse Resp BP Pulse Ox 36.5 C L 95 25 H 122/57 H 91 08/28/20 00:00 08/28/20 07:00 08/28/20 07:00 08/28/20 07:00 08/28/20 07:00 Oxygen Delivery Method Room Air Weight: 54.6 kg Body Mass Index (BMI) 17.4 Finger Stick Blood Glucose 50 Intake and Output for Last 24 Hours 08/26/20 08/27/20 08/28/20 23:59 23:59 23:59 Intake Total 2000.05 / 2200.05 8017.32 / 8017.32 1250.47 / 1250.47 Output Total 0 / 0 650 / 650 Balance 1999.05 / 2200.05 8017.32 / 8017.32 600.47 / 600.47 Labs (Last 48 Hours) 08/26/20 08/26/20 08/26/20 18:45 18:45 18:45 WBC 11.4 H RBC 3.83 L Hgb 11.5 L Hct 36.9 L MCV 96.3 MCH 30.0 MCHC 31.2 L RDW Std Deviation 44.5 H RDW Coeff of Iron 12.6 Plt Count 220 MPV 10.2 Immature Gran % (Auto) 0.400 Neut % (Auto) 65.0 Lymph % (Auto) 18.9 L [place] % (Auto) 11.9 H Eos % (Auto) 3.1 Baso % (Auto) 0.7 Absolute Neuts (auto) 7.4 Absolute Lymphs (auto) 2.15 Nucleated RBC % 0 Specimen Type Sample Site pH Bicarbonate Actual Total CO2 Base Excess O2 Saturation ABG pCO2 ABG pO2 O2 Delivery Device Sodium 132 L Potassium 5.9 H Chloride 98 Carbon Dioxide 19.0 L Anion Gap 15 BUN 54 H Creatinine 3.32 H Estim Creat Clear Calc 13.81 Est GFR (MDRD) Af Amer 18 L Est GFR (MDRD) Non-Af 15 L BUN/Creatinine Ratio 16.3 Glucose 361 H Hemoglobin A1c Serum Osmolality Calcium 9.1 Magnesium 2.0 Total Bilirubin AST ALT Alkaline Phosphatase Troponin I 0.050 H Total Protein Albumin Globulin Albumin/Globulin Ratio Triglycerides Cholesterol LDL Cholesterol VLDL Cholesterol HDL Cholesterol Urine Color Urine Clarity Urine pH Ur Specific [place] Urine Protein Urine Glucose (UA) Urine Ketones Urine Occult Blood Urine Nitrite Urine Bilirubin Urine Urobilinogen Ur Leukocyte Esterase Urine RBC Urine WBC Ur Squamous Epith Cells Urine Bacteria Urine Mucus Ur Random Sodium Urine Creatinine Acetone Level COVID-19 (MARISA) POC Glucose 08/26/20 08/26/20 08/26/20 22:00 22:00 22:53 WBC RBC Hgb Hct MCV MCH MCHC RDW Std Deviation RDW Coeff of Iron Plt Count MPV Immature Gran % (Auto) Neut % (Auto) Lymph % (Auto) [place] % (Auto) Eos % (Auto) Baso % (Auto) Absolute Neuts (auto) Absolute Lymphs (auto) Nucleated RBC % Specimen Type Sample Site pH Bicarbonate Actual Total CO2 Base Excess O2 Saturation ABG pCO2 ABG pO2 O2 Delivery Device Sodium 135 L Potassium 5.4 H Chloride 106 Carbon Dioxide 18.0 L Anion Gap 11 BUN 52 H Creatinine 3.01 H Estim Creat Clear Calc 15.34 Est GFR (MDRD) Af Amer 20 L Est GFR (MDRD) Non-Af 17 L BUN/Creatinine Ratio 17.3 Glucose 290 H Hemoglobin A1c Serum Osmolality Calcium 8.0 L Magnesium Total Bilirubin AST ALT Alkaline Phosphatase Troponin I 0.052 H Total Protein Albumin Globulin Albumin/Globulin Ratio Triglycerides Cholesterol LDL Cholesterol VLDL Cholesterol HDL Cholesterol Urine Color Urine Clarity Urine pH Ur Specific [place] Urine Protein Urine Glucose (UA) Urine Ketones Urine Occult Blood Urine Nitrite Urine Bilirubin Urine Urobilinogen Ur Leukocyte Esterase Urine RBC Urine WBC Ur Squamous Epith Cells Urine Bacteria Urine Mucus Ur Random Sodium Urine Creatinine Acetone Level COVID-19 (MARISA) POC Glucose 345 H 08/27/20 08/27/20 08/27/20 00:15 06:25 06:25 WBC 13.2 H RBC 3.01 L Hgb 9.1 L Hct 30.8 L MCV 102.3 H D MCH 30.2 MCHC 29.5 L D RDW Std Deviation 48.3 H RDW Coeff of Iron 12.8 Plt Count 168 MPV 10.6 Immature Gran % (Auto) 0.800 Neut % (Auto) 83.4 H Lymph % (Auto) 7.9 L [place] % (Auto) 7.5 Eos % (Auto) 0.1 Baso % (Auto) 0.3 Absolute Neuts (auto) 11.0 H Absolute Lymphs (auto) 1.04 Nucleated RBC % 0 Specimen Type Sample Site pH Bicarbonate Actual Total CO2 Base Excess O2 Saturation ABG pCO2 ABG pO2 O2 Delivery Device Sodium 132 L Potassium 6.7 H* Chloride 104 Carbon Dioxide 11.0 L Anion Gap 17 H BUN 56 H Creatinine 3.87 H Estim Creat Clear Calc 11.93 Est GFR (MDRD) Af Amer 15 L Est GFR (MDRD) Non-Af 13 L BUN/Creatinine Ratio 14.5 Glucose 699 H* Hemoglobin A1c Serum Osmolality Calcium 7.5 L Magnesium Total Bilirubin 0.40 AST 19 ALT 14 Alkaline Phosphatase 61 Troponin I 0.055 H Total Protein 4.9 L Albumin 2.6 L Globulin 2.3 Albumin/Globulin Ratio 1.1 Triglycerides 262 H Cholesterol 93 LDL Cholesterol 12 VLDL Cholesterol 52 H HDL Cholesterol 29 L Urine Color Urine Clarity Urine pH Ur Specific [place] Urine Protein Urine Glucose (UA) Urine Ketones Urine Occult Blood Urine Nitrite Urine Bilirubin Urine Urobilinogen Ur Leukocyte Esterase Urine RBC Urine WBC Ur Squamous Epith Cells Urine Bacteria Urine Mucus Ur Random Sodium Urine Creatinine Acetone Level COVID-19 (MARISA) POC Glucose 08/27/20 08/27/20 08/27/20 06:25 07:09 08:07 WBC RBC Hgb Hct MCV MCH MCHC RDW Std Deviation RDW Coeff of Iron Plt Count MPV Immature Gran % (Auto) Neut % (Auto) Lymph % (Auto) [place] % (Auto) Eos % (Auto) Baso % (Auto) Absolute Neuts (auto) Absolute Lymphs (auto) Nucleated RBC % Specimen Type ART Sample Site R Brach pH 7.06 L* Bicarbonate Actual 10.2 L Total CO2 11 Base Excess -20 L O2 Saturation 91 L ABG pCO2 36.0 ABG pO2 86 O2 Delivery Device Room Air Sodium Potassium Chloride Carbon Dioxide Anion Gap BUN Creatinine Estim Creat Clear Calc Est GFR (MDRD) Af Amer Est GFR (MDRD) Non-Af BUN/Creatinine Ratio Glucose Hemoglobin A1c 7.6 H Serum Osmolality Calcium Magnesium Total Bilirubin AST ALT Alkaline Phosphatase Troponin I Total Protein Albumin Globulin Albumin/Globulin Ratio Triglycerides Cholesterol LDL Cholesterol VLDL Cholesterol HDL Cholesterol Urine Color Urine Clarity Urine pH Ur Specific [place] Urine Protein Urine Glucose (UA) Urine Ketones Urine Occult Blood Urine Nitrite Urine Bilirubin Urine Urobilinogen Ur Leukocyte Esterase Urine RBC Urine WBC Ur Squamous Epith Cells Urine Bacteria Urine Mucus Ur Random Sodium Urine Creatinine Acetone Level COVID-19 (MARISA) POC Glucose > 500 H* 08/27/20 08/27/20 08/27/20 09:25 10:02 11:08 WBC RBC Hgb Hct MCV MCH MCHC RDW Std Deviation RDW Coeff of Iron Plt Count MPV Immature Gran % (Auto) Neut % (Auto) Lymph % (Auto) [place] % (Auto) Eos % (Auto) Baso % (Auto) Absolute Neuts (auto) Absolute Lymphs (auto) Nucleated RBC % Specimen Type Sample Site pH Bicarbonate Actual Total CO2 Base Excess O2 Saturation ABG pCO2 ABG pO2 O2 Delivery Device Sodium Potassium Chloride Carbon Dioxide Anion Gap BUN Creatinine Estim Creat Clear Calc Est GFR (MDRD) Af Amer Est GFR (MDRD) Non-Af BUN/Creatinine Ratio Glucose Hemoglobin A1c Serum Osmolality Calcium Magnesium Total Bilirubin AST ALT Alkaline Phosphatase Troponin I Total Protein Albumin Globulin Albumin/Globulin Ratio Triglycerides Cholesterol LDL Cholesterol VLDL Cholesterol HDL Cholesterol Urine Color Urine Clarity Urine pH Ur Specific [place] Urine Protein Urine Glucose (UA) Urine Ketones Urine Occult Blood Urine Nitrite Urine Bilirubin Urine Urobilinogen Ur Leukocyte Esterase Urine RBC Urine WBC Ur Squamous Epith Cells Urine Bacteria Urine Mucus Ur Random Sodium Urine Creatinine Acetone Level COVID-19 (MARISA) Not Detected POC Glucose > 500 H* > 500 H* 08/27/20 08/27/20 08/27/20 11:10 11:10 11:10 WBC RBC Hgb Hct MCV MCH MCHC RDW Std Deviation RDW Coeff of Iron Plt Count MPV Immature Gran % (Auto) Neut % (Auto) Lymph % (Auto) [place] % (Auto) Eos % (Auto) Baso % (Auto) Absolute Neuts (auto) Absolute Lymphs (auto) Nucleated RBC % Specimen Type Sample Site pH Bicarbonate Actual Total CO2 Base Excess O2 Saturation ABG pCO2 ABG pO2 O2 Delivery Device Sodium 137 Cancelled Potassium 4.9 Cancelled Chloride 108 H Cancelled Carbon Dioxide 12.0 L Cancelled Anion Gap 17 H Cancelled BUN 57 H Cancelled Creatinine 3.86 H Cancelled Estim Creat Clear Calc 11.96 Cancelled Est GFR (MDRD) Af Amer 15 L Cancelled Est GFR (MDRD) Non-Af 13 L Cancelled BUN/Creatinine Ratio 14.8 Cancelled Glucose 654 H* Cancelled Hemoglobin A1c Serum Osmolality 331 H Calcium 7.1 L Cancelled Magnesium 1.7 Total Bilirubin AST ALT Alkaline Phosphatase Troponin I Total Protein Albumin Globulin Albumin/Globulin Ratio Triglycerides Cholesterol LDL Cholesterol VLDL Cholesterol HDL Cholesterol Urine Color Urine Clarity Urine pH Ur Specific [place] Urine Protein Urine Glucose (UA) Urine Ketones Urine Occult Blood Urine Nitrite Urine Bilirubin Urine Urobilinogen Ur Leukocyte Esterase Urine RBC Urine WBC Ur Squamous Epith Cells Urine Bacteria Urine Mucus Ur Random Sodium Urine Creatinine Acetone Level MODERATE H COVID-19 (MARISA) POC Glucose 08/27/20 08/27/20 08/27/20 11:10 12:07 12:59 WBC RBC Hgb Hct MCV MCH MCHC RDW Std Deviation RDW Coeff of Iron Plt Count MPV Immature Gran % (Auto) Neut % (Auto) Lymph % (Auto) [place] % (Auto) Eos % (Auto) Baso % (Auto) Absolute Neuts (auto) Absolute Lymphs (auto) Nucleated RBC % Specimen Type Sample Site pH Bicarbonate Actual Total CO2 Base Excess O2 Saturation ABG pCO2 ABG pO2 O2 Delivery Device Sodium Potassium Chloride Carbon Dioxide Anion Gap BUN Creatinine Estim Creat Clear Calc Est GFR (MDRD) Af Amer Est GFR (MDRD) Non-Af BUN/Creatinine Ratio Glucose Cancelled Hemoglobin A1c Serum Osmolality Calcium Magnesium Total Bilirubin AST ALT Alkaline Phosphatase Troponin I Total Protein Albumin Globulin Albumin/Globulin Ratio Triglycerides Cholesterol LDL Cholesterol VLDL Cholesterol HDL Cholesterol Urine Color Urine Clarity Urine pH Ur Specific [place] Urine Protein Urine Glucose (UA) Urine Ketones Urine Occult Blood Urine Nitrite Urine Bilirubin Urine Urobilinogen Ur Leukocyte Esterase Urine RBC Urine WBC Ur Squamous Epith Cells Urine Bacteria Urine Mucus Ur Random Sodium Urine Creatinine Acetone Level COVID-19 (MARISA) POC Glucose > 500 H* > 500 H* 08/27/20 08/27/20 08/27/20 14:08 15:00 15:08 WBC RBC Hgb Hct MCV MCH MCHC RDW Std Deviation RDW Coeff of Iron Plt Count MPV Immature Gran % (Auto) Neut % (Auto) Lymph % (Auto) [place] % (Auto) Eos % (Auto) Baso % (Auto) Absolute Neuts (auto) Absolute Lymphs (auto) Nucleated RBC % Specimen Type Sample Site pH Bicarbonate Actual Total CO2 Base Excess O2 Saturation ABG pCO2 ABG pO2 O2 Delivery Device Sodium 139 Potassium 3.9 Chloride 112 H Carbon Dioxide 17.0 L Anion Gap 10 BUN 56 H Creatinine 3.83 H Estim Creat Clear Calc 13.46 Est GFR (MDRD) Af Amer 15 L Est GFR (MDRD) Non-Af 13 L BUN/Creatinine Ratio 14.6 Glucose 459 H* Hemoglobin A1c Serum Osmolality Calcium 6.9 L Magnesium Total Bilirubin AST ALT Alkaline Phosphatase Troponin I Total Protein Albumin Globulin Albumin/Globulin Ratio Triglycerides Cholesterol LDL Cholesterol VLDL Cholesterol HDL Cholesterol Urine Color Urine Clarity Urine pH Ur Specific [place] Urine Protein Urine Glucose (UA) Urine Ketones Urine Occult Blood Urine Nitrite Urine Bilirubin Urine Urobilinogen Ur Leukocyte Esterase Urine RBC Urine WBC Ur Squamous Epith Cells Urine Bacteria Urine Mucus Ur Random Sodium Urine Creatinine Acetone Level COVID-19 (MARISA) POC Glucose 462 H* 451 H* 08/27/20 08/27/20 08/27/20 16:08 17:06 18:04 WBC RBC Hgb Hct MCV MCH MCHC RDW Std Deviation RDW Coeff of Iron Plt Count MPV Immature Gran % (Auto) Neut % (Auto) Lymph % (Auto) [place] % (Auto) Eos % (Auto) Baso % (Auto) Absolute Neuts (auto) Absolute Lymphs (auto) Nucleated RBC % Specimen Type Sample Site pH Bicarbonate Actual Total CO2 Base Excess O2 Saturation ABG pCO2 ABG pO2 O2 Delivery Device Sodium Potassium Chloride Carbon Dioxide Anion Gap BUN Creatinine Estim Creat Clear Calc Est GFR (MDRD) Af Amer Est GFR (MDRD) Non-Af BUN/Creatinine Ratio Glucose Hemoglobin A1c Serum Osmolality Calcium Magnesium Total Bilirubin AST ALT Alkaline Phosphatase Troponin I Total Protein Albumin Globulin Albumin/Globulin Ratio Triglycerides Cholesterol LDL Cholesterol VLDL Cholesterol HDL Cholesterol Urine Color Urine Clarity Urine pH Ur Specific [place] Urine Protein Urine Glucose (UA) Urine Ketones Urine Occult Blood Urine Nitrite Urine Bilirubin Urine Urobilinogen Ur Leukocyte Esterase Urine RBC Urine WBC Ur Squamous Epith Cells Urine Bacteria Urine Mucus Ur Random Sodium Urine Creatinine Acetone Level COVID-19 (MARISA) POC Glucose 419 H 388 H 360 H 08/27/20 08/27/20 08/27/20 19:03 20:15 21:11 WBC RBC Hgb Hct MCV MCH MCHC RDW Std Deviation RDW Coeff of Iron Plt Count MPV Immature Gran % (Auto) Neut % (Auto) Lymph % (Auto) [place] % (Auto) Eos % (Auto) Baso % (Auto) Absolute Neuts (auto) Absolute Lymphs (auto) Nucleated RBC % Specimen Type Sample Site pH Bicarbonate Actual Total CO2 Base Excess O2 Saturation ABG pCO2 ABG pO2 O2 Delivery Device Sodium Potassium Chloride Carbon Dioxide Anion Gap BUN Creatinine Estim Creat Clear Calc Est GFR (MDRD) Af Amer Est GFR (MDRD) Non-Af BUN/Creatinine Ratio Glucose Hemoglobin A1c Serum Osmolality Calcium Magnesium Total Bilirubin AST ALT Alkaline Phosphatase Troponin I Total Protein Albumin Globulin Albumin/Globulin Ratio Triglycerides Cholesterol LDL Cholesterol VLDL Cholesterol HDL Cholesterol Urine Color Urine Clarity Urine pH Ur Specific [place] Urine Protein Urine Glucose (UA) Urine Ketones Urine Occult Blood Urine Nitrite Urine Bilirubin Urine Urobilinogen Ur Leukocyte Esterase Urine RBC Urine WBC Ur Squamous Epith Cells Urine Bacteria Urine Mucus Ur Random Sodium Urine Creatinine Acetone Level COVID-19 (MARISA) POC Glucose 282 H 240 H 220 H 08/27/20 08/28/20 08/28/20 22:39 00:05 00:40 WBC RBC Hgb Hct MCV MCH MCHC RDW Std Deviation RDW Coeff of Iron Plt Count MPV Immature Gran % (Auto) Neut % (Auto) Lymph % (Auto) [place] % (Auto) Eos % (Auto) Baso % (Auto) Absolute Neuts (auto) Absolute Lymphs (auto) Nucleated RBC % Specimen Type Sample Site pH Bicarbonate Actual Total CO2 Base Excess O2 Saturation ABG pCO2 ABG pO2 O2 Delivery Device Sodium 145 Potassium 3.2 L Chloride 116 H Carbon Dioxide 20.0 L Anion Gap 9 BUN 54 H Creatinine 3.39 H Estim Creat Clear Calc 15.21 Est GFR (MDRD) Af Amer 18 L Est GFR (MDRD) Non-Af 15 L BUN/Creatinine Ratio 15.9 Glucose 97 Hemoglobin A1c Serum Osmolality Calcium 6.7 L Magnesium Total Bilirubin AST ALT Alkaline Phosphatase Troponin I Total Protein Albumin Globulin Albumin/Globulin Ratio Triglycerides Cholesterol LDL Cholesterol VLDL Cholesterol HDL Cholesterol Urine Color Urine Clarity Urine pH Ur Specific [place] Urine Protein Urine Glucose (UA) Urine Ketones Urine Occult Blood Urine Nitrite Urine Bilirubin Urine Urobilinogen Ur Leukocyte Esterase Urine RBC Urine WBC Ur Squamous Epith Cells Urine Bacteria Urine Mucus Ur Random Sodium Urine Creatinine Acetone Level COVID-19 (MARISA) POC Glucose 143 H 95 08/28/20 08/28/20 08/28/20 02:01 02:29 03:11 WBC RBC Hgb Hct MCV MCH MCHC RDW Std Deviation RDW Coeff of Iron Plt Count MPV Immature Gran % (Auto) Neut % (Auto) Lymph % (Auto) [place] % (Auto) Eos % (Auto) Baso % (Auto) Absolute Neuts (auto) Absolute Lymphs (auto) Nucleated RBC % Specimen Type Sample Site pH Bicarbonate Actual Total CO2 Base Excess O2 Saturation ABG pCO2 ABG pO2 O2 Delivery Device Sodium Potassium Chloride Carbon Dioxide Anion Gap BUN Creatinine Estim Creat Clear Calc Est GFR (MDRD) Af Amer Est GFR (MDRD) Non-Af BUN/Creatinine Ratio Glucose Hemoglobin A1c Serum Osmolality Calcium Magnesium Total Bilirubin AST ALT Alkaline Phosphatase Troponin I Total Protein Albumin Globulin Albumin/Globulin Ratio Triglycerides Cholesterol LDL Cholesterol VLDL Cholesterol HDL Cholesterol Urine Color Urine Clarity Urine pH Ur Specific [place] Urine Protein Urine Glucose (UA) Urine Ketones Urine Occult Blood Urine Nitrite Urine Bilirubin Urine Urobilinogen Ur Leukocyte Esterase Urine RBC Urine WBC Ur Squamous Epith Cells Urine Bacteria Urine Mucus Ur Random Sodium Urine Creatinine Acetone Level COVID-19 (MARISA) POC Glucose 50 L 116 H 137 H 08/28/20 08/28/20 08/28/20 03:30 03:30 03:58 WBC RBC Hgb Hct MCV MCH MCHC RDW Std Deviation RDW Coeff of Iron Plt Count MPV Immature Gran % (Auto) Neut % (Auto) Lymph % (Auto) [place] % (Auto) Eos % (Auto) Baso % (Auto) Absolute Neuts (auto) Absolute Lymphs (auto) Nucleated RBC % Specimen Type Sample Site pH Bicarbonate Actual Total CO2 Base Excess O2 Saturation ABG pCO2 ABG pO2 O2 Delivery Device Sodium Potassium Chloride Carbon Dioxide Anion Gap BUN Creatinine Estim Creat Clear Calc Est GFR (MDRD) Af Amer Est GFR (MDRD) Non-Af BUN/Creatinine Ratio Glucose Hemoglobin A1c Serum Osmolality Calcium Magnesium Total Bilirubin AST ALT Alkaline Phosphatase Troponin I Total Protein Albumin Globulin Albumin/Globulin Ratio Triglycerides Cholesterol LDL Cholesterol VLDL Cholesterol HDL Cholesterol Urine Color Yellow Urine Clarity Clear Urine pH 5.0 Ur Specific [place] 1.020 Urine Protein 30 H Urine Glucose (UA) 50 H Urine Ketones 5 H Urine Occult Blood 10 H Urine Nitrite Negative Urine Bilirubin Negative Urine Urobilinogen Normal Ur Leukocyte Esterase Negative Urine RBC 0-5 SEEN Urine WBC 0 SEEN Ur Squamous Epith Cells 0 SEEN Urine Bacteria 0 SEEN Urine Mucus 0 SEEN Ur Random Sodium 24 Urine Creatinine 146.00 Acetone Level COVID-19 (MARISA) POC Glucose 157 H 08/28/20 08/28/20 08/28/20 04:40 05:11 06:21 WBC RBC Hgb Hct MCV MCH MCHC RDW Std Deviation RDW Coeff of Iron Plt Count MPV Immature Gran % (Auto) Neut % (Auto) Lymph % (Auto) [place] % (Auto) Eos % (Auto) Baso % (Auto) Absolute Neuts (auto) Absolute Lymphs (auto) Nucleated RBC % Specimen Type Sample Site pH Bicarbonate Actual Total CO2 Base Excess O2 Saturation ABG pCO2 ABG pO2 O2 Delivery Device Sodium 141 Potassium 4.1 Chloride 113 H Carbon Dioxide 17.0 L Anion Gap 11 BUN 53 H Creatinine 3.34 H Estim Creat Clear Calc 15.44 Est GFR (MDRD) Af Amer 18 L Est GFR (MDRD) Non-Af 15 L BUN/Creatinine Ratio 15.9 Glucose 218 H Hemoglobin A1c Serum Osmolality Calcium 6.8 L Magnesium Total Bilirubin AST ALT Alkaline Phosphatase Troponin I Total Protein Albumin Globulin Albumin/Globulin Ratio Triglycerides Cholesterol LDL Cholesterol VLDL Cholesterol HDL Cholesterol Urine Color Urine Clarity Urine pH Ur Specific [place] Urine Protein Urine Glucose (UA) Urine Ketones Urine Occult Blood Urine Nitrite Urine Bilirubin Urine Urobilinogen Ur Leukocyte Esterase Urine RBC Urine WBC Ur Squamous Epith Cells Urine Bacteria Urine Mucus Ur Random Sodium Urine Creatinine Acetone Level COVID-19 (MARISA) POC Glucose 223 H 237 H Microbiology 08/27/20 05:25 Mucosa - Nasopharyngeal Respiratory Panel (PCR) - Final Medical Necessity - Tobacco Use Smoking Status: Current every day smoker Tobacco Use: Cigarettes Assessment/Plan All Active Problems (Last Reviewed 11/19/19 @ 10:29 by Radha BHARDWAJ, PA) Chest pain (Acute) S/P PTCA (percutaneous transluminal coronary angioplasty) (Acute) Diabetes (Acute) Hypotension (Acute) Renal insufficiency (Acute) Hyperkalemia (Acute) NSTEMI (non-ST elevated myocardial infarction) (Resolved 01/12/18) DKA (diabetic ketoacidoses) (Resolved) Intractable nausea and vomiting (Resolved) Ketoacidosis (Resolved) RECOMMENDATIONS: 1. Continue supplemental IV fluid hydration. 2. Hold antihypertensives. 3. Transition to subcu insulin with sliding scale 4. Monitor BMP serially and replete electrolytes as needed. 5. Defer work-up of chest pain to cardiology. Await echocardiogram IMPRESSIONS: 1. Hypotension Suspect likely secondary to intravascular volume depletion in the setting of diabetic ketoacidosis. Continue IV volume resuscitation. Patient does have an echocardiogram scheduled for today. Pending these results, patient may get a stress test. 2. Diabetic ketoacidosis Likely secondary to insulin pump nonfunctioning. Patient will be transi tioned over to Lantus with sliding scale insulin. Patient is comfortable with this approach as this is what she used before the insulin pump. Patient does have an elevated hemoglobin A1c indicating poor control. Monitor serial electrolytes and replete as indicated. 3. Chest pain with indeterminate cardiac enzymes/history of coronary artery disease status post PCI Cardiology is currently following to assist with medical management. Echocardiogram will be obtained, but troponin trend was not impressive. 4. History of COPD and chronic tobacco dependency The patient is currently maintaining appropriate oxygen saturations on room air. Continue bronchodilator therapy as ordered. Tobacco cessation counseling was provided. Nicotine replacement therapy will be continued. 5. Diabetes mellitus/hypertension/hyperlipidemia/anemia/tremor Complicates care, management, recovery and prognosis. Continue home medications as indicated. Unclear if patient has benign essential tremor at baseline as this appears to be worse, but not new compared to previous. Inpatient E&M: 44899 Subs Hosp L3
[2020-08-28 07:31] LABS: Bedside Glucose 210 mg/dL (70-110)
[2020-08-28] MEDS: Insulin Lispro 100 UNIT/ML INSULN.PEN SC ×3 (07:51→17:19)
[2020-08-28] MEDS: Heparin Injection (Vial) 5,000 UNIT/ML VIAL 5000 UNIT SC ×2 (10:14→20:46)
[2020-08-28] MEDS: Clopidogrel Bisulfate 75 MG Tablet PO (10:15)
[2020-08-28] MEDS: Aspirin E.C. 81 MG Tablet PO (10:15)
[2020-08-28 10:30] LABS: Bedside Glucose 259 mg/dL (70-110)
--- NOTE | 2020-08-28 11:57 | CON.PCM_ITS ---
Consultation - Renal 08/28/20 PCP/ Referring MD: Requesting physician: [] Primary care physician: Dr. Sin Lujan MD Reason for Consultation:: acute on CKD stage 4 - History of Present Illness History of Present Illness: The patient is a 59 year old F known to me with CKD stage 4 due to diabetic nephropathy type 1 admitted to ICU on 08/26 for acute chest pain that started Friday morning. No relief with nitro at home. Blood sugars were elevated at home on Friday with DKA on presentation to ER. She had nausea, vomiting. Received fluids on admit for hypotension along with midodrine. Now complains of bloating. cardiology consulted and echo in progress. She has a history of CKD with baseline creatinine of 1.7 in Jul 2020 now at 3.3 to 3.87 during hospitalization down to 3.34 today. Urine sodium 24, Creatinine 146. Potassium elevated with metabolic acidosis from DKA on admission. She noticed decreased urine output since Friday and has not been able to urinate on her own since admit. She was straight cathed. PMH for CAD s/p SC, stents x2. She continues to smoke. Currently oxygenation stable on RA. ] - Allergies Allergies: Allergies No Known Allergies Allergy (Verified 08/26/20 20:18) - Current Medications Current Medications: Current Medications Acetaminophen (Acetaminophen 325 Mg Tablet) 650 mg PO Q6H PRN PRN PRN Reason: Pain Score 1-10/Temp > 100.7 F Al Hydroxide/Mg Hydroxide (Mag Hydrox/Al Hydrox/Simeth 30 Ml Udc) 30 ml PO Q6H PRN PRN PRN Reason: Gastric Burning Albuterol Sulfate (Albuterol 2.5 Mg/3 Ml Vial.Neb.) 2.5 mg INHALATION Q2H PRN PRN PRN Reason: Dyspnea, wheezing Last Admin: 08/26/20 22:14 Dose: 2.5 mg Documented by: Albuterol/Ipratropium (Ipratropium/Albuterol Sulfate 3 Ml Ampul.Neb) 3 ml INHALATION Q6HWA.RT [facility] Last Admin: 08/28/20 06:54 Dose: 3 ml Documented by: Aspirin (Aspirin E.C. 81 Mg Tablet) 81 mg PO DAILY [facility] Last Admin: 08/28/20 10:15 Dose: 81 mg Documented by: Atorvastatin Calcium (Atorvastatin Calcium 20 Mg Tablet) 20 mg PO QHS [facility] Last Admin: 08/27/20 21:13 Dose: 20 mg Documented by: Clopidogrel Bisulfate (Clopidogrel Bisulfate 75 Mg Tablet) 75 mg PO DAILY [facility] Last Admin: 08/28/20 10:15 Dose: 75 mg Documented by: Dextrose (Dextrose 50%-Water 25 Gm/50 Ml Disp.Syrin) 0 gm IV X1 PRN; Protocol PRN Reason: Hypoglycemia Protocol Last Admin: 08/28/20 02:05 Dose: 25 gm Documented by: Gabapentin (Gabapentin 300 Mg Capsule) 300 mg PO QHS [facility] Last Admin: 08/27/20 21:14 Dose: 300 mg Documented by: Guaifenesin (Guaifenesin 10 Ml Udc (200mg/10ml)) 20 ml PO Q4H PRN PRN PRN Reason: COUGH Heparin Sodium (Porcine) (Heparin Injection (Vial) 5,000 Unit/Ml Vial) 5,000 unit SC Q12 [facility] Last Admin: 08/28/20 10:14 Dose: 5,000 unit Documented by: Insulin Glargine (Insulin Glargine 100 Units/Ml Pen) 10 units SC DAILY [facility] Last Admin: 08/28/20 10:12 Dose: 10 u Documented by: Insulin Human Lispro (Insulin Lispro 100 Unit/Ml Insuln.Pen) 0 unit SC ACHS [facility]; Protocol Last Admin: 08/28/20 07:51 Dose: 2 u Documented by: Melatonin (Melatonin 3 Mg Tablet) 3 mg PO QHS PRN PRN PRN Reason: INSOMNIA Metoprolol Tartrate (Metoprolol Tartrate 50 Mg Tablet) 50 mg PO BID [facility] Last Admin: 08/28/20 11:11 Dose: Not Given Documented by: Nicotine (Nicotine 21 Mg Patch) 21 mg TRANSDERM. DAILY [facility] Last Admin: 08/28/20 10:15 Dose: 21 mg Documented by: Nitroglycerin (Nitroglycerin (Inpatient Use) 0.4 Mg Tab.Subl) 0.4 mg SUBLINGUAL Q5M PRN PRN Reason: CARDIAC/CHEST PAIN Ondansetron HCl (Ondansetron 4 Mg/2 Ml Vial) 4 mg IV Q8H PRN PRN PRN Reason: NAUSEA/VOMITING Prochlorperazine Edisylate (Prochlorperazine 10 Mg/2 Ml Vial) 5 mg IV Q4H PRN PRN PRN Reason: Breakthrough Nausea/Vomiting Psyllium Hydrophilic Mucilloid (Psyllium 1 Packet) 1 packet PO DAILY PRN PRN PRN Reason: Constipation Senna/Docusate Sodium (Senna/Docusate Sodium 1 Tablet) 2 tablet PO BID PRN PRN PRN Reason: Constipation Sodium Chloride (0.9% Saline Lock 10 Ml Syringe) 10 - 40 ml IV UD PRN PRN Reason: SALINE FLUSH Last Admin: 08/28/20 02:08 Dose: 10 ml Documented by: Throat Lozenges (Benzocaine/Menthol 1 Lozenge) 1 lozenge MUCOUS MEM Q2H PRN PRN PRN Reason: SORE THROAT - Past Medical History Past Medical History (Chronic Problems): Chronic Problems (Last Reviewed 11/19/19 @ 10:29 by Radha BHARDWAJ, PA) Chronic obstructive pulmonary disease (Chronic) Dizziness (Chronic) Intermittent palpitations (Chronic) Atherosclerosis of coronary artery of [place] heart without angina pectoris (Chronic) PCI-MIESHA-Mid RCA w/ 2.5 x 28 mm Promus Synergy 01/15/2018; PCI-MIESHA-Mid LCx w/ 3.0 x 16 mm Promus Synergy 02/04/2018 History of coronary artery stent placement (Chronic 02/04/18) PCI-MIESHA-Mid RCA w/ 2.5 x 28 mm Promus Synergy 01/15/2018; PCI-MIESHA-Mid LCx w/ 3.0 x 16mm Promus Synergy 02/04/2018 Essential (primary) hypertension (Chronic) Hyperlipidemia (Chronic) Nicotine dependence (Chronic) - Past Surgical History Surgical History: appendectomy, hysterectomy, - - . - Social History Smoking Status: Current every day smoker Alcohol: None Drugs: None - Family History Maternal Family History: Family History (Last Reviewed 11/19/19 @ 10:29 by Radha BHARDWAJ, PA) Mother Heart disease COPD (chronic obstructive pulmonary disease) Lupus Daughter Growth disorder Down syndrome Fibromyalgia Grandfather Colon cancer Diabetes Grandmother Heart disease CVA (cerebral vascular accident) Diabetes Pulmonary disease Sister Hypertension Kidney disease History Items: High Cholesterol, Heart Disease, Hypertension, Pulmonary Disease, - - Lupus. Paternal Family History: Family History (Last Reviewed 11/19/19 @ 10:29 by Radha BHARDWAJ, PA) Mother Heart disease COPD (chronic obstructive pulmonary disease) Lupus Daughter Growth disorder Down syndrome Fibromyalgia Grandfather Colon cancer Diabetes Grandmother Heart disease CVA (cerebral vascular accident) Diabetes Pulmonary disease Sister Hypertension Kidney disease History Items: Heart Disease Review of Systems Constitutional: Reports: Weakness, Fatigue. Denies: Anorexia, Chills, Fever HEENT: Denies: Head Aches Cardiovascular: Reports: Chest Pain, Light Headedness. Denies: Edema, Syncope Respiratory: Reports: Cough - chronic. Denies: Shortness of Breath, Shortness of breath at rest Gastrointestinal: Reports: Nausea, Vomiting, - - abdomnal bloating. Denies: Abdominal Pain Genitourinary: Reports: Retention, - - decreased urine output. Denies: Dysuria Musculoskeletal: Denies: Muscle pain Skin: Denies: Rash Neurological: Denies: Tremor, Seizures Psychiatric: Reports: Anxiety, Depression Hematologic/ Lymphatic: Reports: Adenopathy Patient Problems: Active and Suspected Problems (Last Reviewed 11/19/19 @ 10:29 by Radha Sandhu PA, PA) Chest pain (Acute) S/P PTCA (percutaneous transluminal coronary angioplasty) (Acute) Diabetes (Acute) Hypotension (Acute) Renal insufficiency (Acute) Hyperkalemia (Acute) - Physical Exam Vitals/I&O's: Vital Signs Temp Pulse Resp BP Pulse Ox 98.9 F 94 16 113/57 L 95 08/28/20 11:00 08/28/20 11:01 08/28/20 11:00 08/28/20 11:00 08/28/20 11:00 Oxygen Delivery Method Room Air Weight: 54.6 kg Body Mass Index (BMI) 17.4 Finger Stick Blood Glucose 210 Intake and Output for Last 24 Hours 08/26/20 08/27/20 08/28/20 23:59 23:59 23:59 Intake Total 8017.32 / 8017.32 2223.00 / 2223.00 Output Total 0 / 0 650 / 650 Balance 8017.32 / 8017.32 1573.00 / 1573.00 General: Alert, Oriented x3, Cooperative, No apparent distress Neck: Supple Lungs: Clear to auscultation Cardiovascular: Regular rate, No rub noted Abdomen: Bowel Sounds Present, Soft, Non Tender, Non-Distended Extremities: No edema Skin: No rashes Musculoskeletal: No Muscle Wasting Neurological: Cranial nerves II-XII grossly intact Psych/Mental Status: Normal Affect, Appropriate, Alert and oriented to time, place, person, mood and affect Microbiology Past 72 Hours 08/27/20 05:25 Mucosa - Nasopharyngeal Respiratory Panel (PCR) - Final Laboratory Results 08/27/20 09:25: COVID-19 ([facility]) Not Detected 08/27/20 11:10: Sodium 137, Potassium 4.9, Chloride 108 H, Carbon Dioxide 12.0 L , Anion Gap 17 H, BUN 57 H, Creatinine 3.86 H, Estim Creat Clear Calc 11.96, Est GFR (MDRD) Af Amer 15 L, Est GFR (MDRD) Non-Af 13 L, BUN/Creatinine Ratio 14.8, Glucose 654 H*, Calcium 7.1 L, Magnesium 1.7 08/27/20 11:10: Serum Osmolality 331 H 08/27/20 12:07: POC Glucose > 500 H* 08/27/20 12:59: POC Glucose > 500 H* 08/27/20 14:08: POC Glucose 462 H* 08/27/20 15:00: Sodium 139, Potassium 3.9, Chloride 112 H, Carbon Dioxide 17.0 L , Anion Gap 10, BUN 56 H, Creatinine 3.83 H, Estim Creat Clear Calc 13.46, Est GFR (MDRD) Af Amer 15 L, Est GFR (MDRD) Non-Af 13 L, BUN/Creatinine Ratio 14.6, Glucose 459 H*, Calcium 6.9 L 08/27/20 15:08: POC Glucose 451 H* 08/27/20 16:08: POC Glucose 419 H 08/27/20 17:06: POC Glucose 388 H 08/27/20 18:04: POC Glucose 360 H 08/27/20 19:03: POC Glucose 282 H 08/27/20 20:15: POC Glucose 240 H 08/27/20 21:11: POC Glucose 220 H 08/27/20 22:39: POC Glucose 143 H 08/28/20 00:05: Sodium 145, Potassium 3.2 L, Chloride 116 H, Carbon Dioxide 20.0 L, Anion Gap 9, BUN 54 H, Creatinine 3.39 H, Estim Creat Clear Calc 15.21, Est GFR (MDRD) Af Amer 18 L, Est GFR (MDRD) Non-Af 15 L, BUN/Creatinine Ratio 15.9, Glucose 97, Calcium 6.7 L 08/28/20 00:40: POC Glucose 95 08/28/20 02:01: POC Glucose 50 L 08/28/20 02:29: POC Glucose 116 H 08/28/20 03:11: POC Glucose 137 H 08/28/20 03:30: Urine Color Yellow, Urine Clarity Clear, Urine pH 5.0, Ur Specific [place] 1.020, Urine Protein 30 H, Urine Glucose (UA) 50 H, Urine Ketones 5 H, Urine Occult Blood 10 H, Urine Nitrite Negative, Urine Bilirubin Negative, Urine Urobilinogen Normal, Ur Leukocyte Esterase Negative, Urine RBC 0-5 SEEN, Urine WBC 0 SEEN, Ur Squamous Epith Cells 0 SEEN, Urine Bacteria 0 SE EN, Urine Mucus 0 SEEN 08/28/20 03:30: Ur Random Sodium 24, Urine Creatinine 146.00 08/28/20 03:58: POC Glucose 157 H 08/28/20 04:40: Sodium 141, Potassium 4.1, Chloride 113 H, Carbon Dioxide 17.0 L , Anion Gap 11, BUN 53 H, Creatinine 3.34 H, Estim Creat Clear Calc 15.44, Est GFR (MDRD) Af Amer 18 L, Est GFR (MDRD) Non-Af 15 L, BUN/Creatinine Ratio 15.9, Glucose 218 H, Calcium 6.8 L 08/28/20 05:11: POC Glucose 223 H 08/28/20 06:21: POC Glucose 237 H 08/28/20 07:14: POC Glucose 210 H 08/28/20 10:11: POC Glucose 259 H Current Medications Acetaminophen (Acetaminophen 325 Mg Tablet) 650 mg PO Q6H PRN PRN PRN Reason: Pain Score 1-10/Temp > 100.7 F Al Hydroxide/Mg Hydroxide (Mag Hydrox/Al Hydrox/Simeth 30 Ml Udc) 30 ml PO Q6H PRN PRN PRN Reason: Gastric Burning Albuterol Sulfate (Albuterol 2.5 Mg/3 Ml Vial.Neb.) 2.5 mg INHALATION Q2H PRN PRN PRN Reason: Dyspnea, wheezing Last Admin: 08/26/20 22:14 Dose: 2.5 mg Documented by: Albuterol/Ipratropium (Ipratropium/Albuterol Sulfate 3 Ml Ampul.Neb) 3 ml INHALATION Q6HWA.RT [facility] Last Admin: 08/28/20 06:54 Dose: 3 ml Documented by: Aspirin (Aspirin E.C. 81 Mg Tablet) 81 mg PO DAILY [facility] Last Admin: 08/28/20 10:15 Dose: 81 mg Documented by: Atorvastatin Calcium (Atorvastatin Calcium 20 Mg Tablet) 20 mg PO QHS [facility] Last Admin: 08/27/20 21:13 Dose: 20 mg Documented by: Clopidogrel Bisulfate (Clopidogrel Bisulfate 75 Mg Tablet) 75 mg PO DAILY [facility] Last Admin: 08/28/20 10:15 Dose: 75 mg Documented by: Dextrose (Dextrose 50%-Water 25 Gm/50 Ml Disp.Syrin) 0 gm IV X1 PRN; Protocol PRN Reason: Hypoglycemia Protocol Last Admin: 08/28/20 02:05 Dose: 25 gm Documented by: Gabapentin (Gabapentin 300 Mg Capsule) 300 mg PO QHS [facility] Last Admin: 08/27/20 21:14 Dose: 300 mg Documented by: Guaifenesin (Guaifenesin 10 Ml Udc (200mg/10ml)) 20 ml PO Q4H PRN PRN PRN Reason: COUGH Heparin Sodium (Porcine) (Heparin Injection (Vial) 5,000 Unit/Ml Vial) 5,000 unit SC Q12 [facility] Last Admin: 08/28/20 10:14 Dose: 5,000 unit Documented by: Insulin Glargine (Insulin Glargine 100 Units/Ml Pen) 10 units SC DAILY [facility] Last Admin: 08/28/20 10:12 Dose: 10 u Documented by: Insulin Human Lispro (Insulin Lispro 100 Unit/Ml Insuln.Pen) 0 unit SC ACHS [facility]; Protocol Last Admin: 08/28/20 07:51 Dose: 2 u Documented by: Melatonin (Melatonin 3 Mg Tablet) 3 mg PO QHS PRN PRN PRN Reason: INSOMNIA Metoprolol Tartrate (Metoprolol Tartrate 50 Mg Tablet) 50 mg PO BID [facility] Last Admin: 08/28/20 11:11 Dose: Not Given Documented by: Nicotine (Nicotine 21 Mg Patch) 21 mg TRANSDERM. DAILY [facility] Last Admin: 08/28/20 10:15 Dose: 21 mg Documented by: Nitroglycerin (Nitroglycerin (Inpatient Use) 0.4 Mg Tab.Subl) 0.4 mg SUBLINGUAL Q5M PRN PRN Reason: CARDIAC/CHEST PAIN Ondansetron HCl (Ondansetron 4 Mg/2 Ml Vial) 4 mg IV Q8H PRN PRN PRN Reason: NAUSEA/VOMITING Prochlorperazine Edisylate (Prochlorperazine 10 Mg/2 Ml Vial) 5 mg IV Q4H PRN PRN PRN Reason: Breakthrough Nausea/Vomiting Psyllium Hydrophilic Mucilloid (Psyllium 1 Packet) 1 packet PO DAILY PRN PRN PRN Reason: Constipation Senna/Docusate Sodium (Senna/Docusate Sodium 1 Tablet) 2 tablet PO BID PRN PRN PRN Reason: Constipation Sodium Chloride (0.9% Saline Lock 10 Ml Syringe) 10 - 40 ml IV UD PRN PRN Reason: SALINE FLUSH Last Admin: 08/28/20 02:08 Dose: 10 ml Documented by: Throat Lozenges (Benzocaine/Menthol 1 Lozenge) 1 lozenge MUCOUS MEM Q2H PRN PRN PRN Reason: SORE THROAT Assessment/Plan All Active Problems (Last Reviewed 11/19/19 @ 10:29 by Radha Sandhu PA, PA) Diabetic nephropathy, type I (Acute) Chest pain (Acute) S/P PTCA (percutaneous transluminal coronary angioplasty) (Acute) Diabetes (Acute) Hypotension (Acute) Renal insufficiency (Acute) Hyperkalemia (Acute) NSTEMI (non-ST elevated myocardial infarction) (Resolved 01/12/18) DKA (diabetic ketoacidoses) (Resolved) Intractable nausea and vomiting (Resolved) Ketoacidosis (Resolved) 1. Acute on CKD stage 4 due to diabetic nephropathy type 1. Baseline creatinine 1.7 now at 3.34 today. Acute event due to DKA, hypotension. FeNa <1%. Remains oliguric. Continue to support BP with fluids, midodrine. [place] to CD if straight cath urine >300cc. Discussed with pt that she may need dialysis if renal fxn does not recover. No urgency to start dialysis at this time. 2. Acute hyperkalemia due to DKA, renal failure resolved. 3. AG Metabolic acidosis with ketones due to DKA. Continue with insulin therapy 4. DM type 1 on insulin pump 5. Hypotension, support with iv fluids, midodrine 6. Chest pain, cardiology consulted. Echo pending 7. Hx CAD, SC, stents 8. Tobacco user 9. Anemia check iron studies 10. Hypocalcemia replace as needed
--- NOTE | 2020-08-28 11:59 | PCM.PN.HOSP ---
Patient Problems: Active and Suspected Problems (Last Reviewed 11/19/19 @ 10:29 by Radha Sandhu PA, PA) Chest pain (Acute) S/P PTCA (percutaneous transluminal coronary angioplasty) (Acute) Diabetes (Acute) Hypotension (Acute) Renal insufficiency (Acute) Hyperkalemia (Acute) Reason for Visit: DKA Subjective: Feels well. Anxious to go home. Vitals/I&O's: Vital Signs Temp Pulse Resp BP Pulse Ox 37.2 C 94 16 113/57 L 95 08/28/20 11:00 08/28/20 11:01 08/28/20 11:00 08/28/20 11:00 08/28/20 11:00 Oxygen Delivery Method Room Air Weight: 54.6 kg Body Mass Index (BMI) 17.4 Finger Stick Blood Glucose 210 Intake and Output for Last 24 Hours 08/26/20 08/27/20 08/28/20 23:59 23:59 23:59 Intake Total 2199. 8017.32 / 8017.32 2223.00 / 2223.00 Output Total 0 / 0 650 / 650 Balance 05 8017.32 / 8017.32 1573.00 / 1573.00 General: Alert, No apparent distress HEENT: Atraumatic, Normocephalic Oral: Moist Mucosa, No Gingival or Mucosal Lesions/ Ulcerations Neck: No Nodes, Thyroid Normal Size and Texture Lungs: Clear to auscultation, Normal air movement, No rhonchi, No wheeze, No rales Cardiovascular: Regular rate, Regular Rhythm, Normal S1, Normal S2, No murmurs Abdomen: Bowel Sounds Present, Soft, Non Tender, Non-Distended, No Hepato-splenomegaly Extremities: No edema, No Calf Tenderness Skin: No rashes, No breakdown Psych/Mental Status: Normal Affect, Appropriate Microbiology Past 72 Hours 08/27/20 05:25 Mucosa - Nasopharyngeal Respiratory Panel (PCR) - Final Laboratory Results 08/27/20 09:25: COVID-19 ([facility]) Not Detected 08/27/20 11:10: Serum Osmolality 331 H 08/27/20 12:07: POC Glucose > 500 H* 08/27/20 12:59: POC Glucose > 500 H* 08/27/20 14:08: POC Glucose 462 H* 08/27/20 15:00: Sodium 139, Potassium 3.9, Chloride 112 H, Carbon Dioxide 17.0 L, Anion Gap 10, BUN 56 H, Creatinine 3.83 H, Estim Creat Clear Calc 13.46, Est GFR (MDRD) Af Amer 15 L, Est GFR (MDRD) Non-Af 13 L, BUN/Creatinine Ratio 14.6, Glucose 459 H*, Calcium 6.9 L 08/27/20 15:08: POC Glucose 451 H* 08/27/20 16:08: POC Glucose 419 H 08/27/20 17:06: POC Glucose 388 H 08/27/20 18:04: POC Glucose 360 H 08/27/20 19:03: POC Glucose 282 H 08/27/20 20:15: POC Glucose 240 H 08/27/20 21:11: POC Glucose 220 H 08/27/20 22:39: POC Glucose 143 H 08/28/20 00:05: Sodium 145, Potassium 3.2 L, Chloride 116 H, Carbon Dioxide 20.0 L, Anion Gap 9, BUN 54 H, Creatinine 3.39 H, Estim Creat Clear Calc 15.21, Est GFR (MDRD) Af Amer 18 L, Est GFR (MDRD) Non-Af 15 L, BUN/Creatinine Ratio 15.9, Glucose 97, Calcium 6.7 L 08/28/20 00:40: POC Glucose 95 08/28/20 02:01: POC Glucose 50 L 08/28/20 02:29: POC Glucose 116 H 08/28/20 03:11: POC Glucose 137 H 08/28/20 03:30: Urine Color Yellow, Urine Clarity Clear, Urine pH 5.0, Ur Specific [place] 1.020, Urine Protein 30 H, Urine Glucose (UA) 50 H, Urine Ketones 5 H, Urine Occult Blood 10 H, Urine Nitrite Negative, Urine Bilirubin Negative, Urine Urobilinogen Normal, Ur Leukocyte Esterase Negative, Urine RBC 0-5 SEEN, Urine WBC 0 SEEN, Ur Squamous Epith Cells 0 SEEN, Urine Bacteria 0 SEEN, Urine Mucus 0 SEEN 08/28/20 03:30: Ur Random Sodium 24, Urine Creatinine 146.00 08/28/20 03:58: POC Glucose 157 H 08/28/20 04:40: Sodium 141, Potassium 4.1, Chloride 113 H, Carbon Dioxide 17.0 L, Anion Gap 11, BUN 53 H, Creatinine 3.34 H, Estim Creat Clear Calc 15.44, Est GFR (MDRD) Af Amer 18 L, Est GFR (MDRD) Non-Af 15 L, BUN/Creatinine Ratio 15.9, Glucose 218 H, Calcium 6.8 L 08/28/20 05:11: POC Glucose 223 H 08/28/20 06:21: POC Glucose 237 H 08/28/20 07:14: POC Glucose 210 H 08/28/20 10:11: POC Glucose 259 H Current Medications Acetaminophen (Acetaminophen 325 Mg Tablet) 650 mg PO Q6H PRN PRN PRN Reason: Pain Score 1-10/Temp > 100.7 F Al Hydroxide/Mg Hydroxide (Mag Hydrox/Al Hydrox/Simeth 30 Ml Udc) 30 ml PO Q6H PRN PRN PRN Reason: Gastric Burning Albuterol Sulfate (Albuterol 2.5 Mg/3 Ml Vial.Neb.) 2.5 mg INHALATION Q2H PRN PRN PRN Reason: Dyspnea, wheezing Last Admin: 08/26/20 22:14 Dose: 2.5 mg Documented by: Albuterol/Ipratropium (Ipratropium/Albuterol Sulfate 3 Ml Ampul.Neb) 3 ml INHALATION Q6HWA.RT [facility] Last Admin: 08/28/20 06:54 Dose: 3 ml Documented by: Aspirin (Aspirin E.C. 81 Mg Tablet) 81 mg PO DAILY [facility] Last Admin: 08/28/20 10:15 Dose: 81 mg Documented by: Atorvastatin Calcium (Atorvastatin Calcium 20 Mg Tablet) 20 mg PO QHS [facility] Last Admin: 08/27/20 21:13 Dose: 20 mg Documented by: Clopidogrel Bisulfate (Clopidogrel Bisulfate 75 Mg Tablet) 75 mg PO DAILY [facility] Last Admin: 08/28/20 10:15 Dose: 75 mg Documented by: Dextrose (Dextrose 50%-Water 25 Gm/50 Ml Disp.Syrin) 0 gm IV X1 PRN; Protocol PRN Reason: Hypoglycemia Protocol Last Admin: 08/28/20 02:05 Dose: 25 gm Documented by: Gabapentin (Gabapentin 300 Mg Capsule) 300 mg PO QHS [facility] Last Admin: 08/27/20 21:14 Dose: 300 mg Documented by: Guaifenesin (Guaifenesin 10 Ml Udc (200mg/10ml)) 20 ml PO Q4H PRN PRN PRN Reason: COUGH Heparin Sodium (Porcine) (Heparin Injection (Vial) 5,000 Unit/Ml Vial) 5,000 unit SC Q12 [facility] Last Admin: 08/28/20 10:14 Dose: 5,000 unit Documented by: Insulin Glargine (Insulin Glargine 100 Units/Ml Pen) 10 units SC DAILY [facility] Last Admin: 08/28/20 10:12 Dose: 10 u Documented by: Insulin Human Lispro (Insulin Lispro 100 Unit/Ml Insuln.Pen) 0 unit SC ACHS [facility]; Protocol Last Admin: 08/28/20 07:51 Dose: 2 u Documented by: Melatonin (Melatonin 3 Mg Tablet) 3 mg PO QHS PRN PRN PRN Reason: INSOMNIA Metoprolol Tartrate (Metoprolol Tartrate 50 Mg Tablet) 50 mg PO BID [facility] Last Admin: 08/28/20 11:11 Dose: Not Given Documented by: Nicotine (Nicotine 21 Mg Patch) 21 mg TRANSDERM. DAILY [facility] Last Admin: 08/28/20 10:15 Dose: 21 mg Documented by: Nitroglycerin (Nitroglycerin (Inpatient Use) 0.4 Mg Tab.Subl) 0.4 mg SUBLINGUAL Q5M PRN PRN Reason: CARDIAC/CHEST PAIN Ondansetron HCl (Ondansetron 4 Mg/2 Ml Vial) 4 mg IV Q8H PRN PRN PRN Reason: NAUSEA/VOMITING Prochlorperazine Edisylate (Prochlorperazine 10 Mg/2 Ml Vial) 5 mg IV Q4H PRN PRN PRN Reason: Breakthrough Nausea/Vomiting Psyllium Hydrophilic Mucilloid (Psyllium 1 Packet) 1 packet PO DAILY PRN PRN PRN Reason: Constipation Senna/Docusate Sodium (Senna/Docusate Sodium 1 Tablet) 2 tablet PO BID PRN PRN PRN Reason: Constipation Sodium Chloride (0.9% Saline Lock 10 Ml Syringe) 10 - 40 ml IV UD PRN PRN Reason: SALINE FLUSH Last Admin: 08/28/20 02:08 Dose: 10 ml Documented by: Throat Lozenges (Benzocaine/Menthol 1 Lozenge) 1 lozenge MUCOUS MEM Q2H PRN PRN PRN Reason: SORE THROAT STROKE Vital Signs/Narrative: Vital Signs Temp Pulse Resp BP Pulse Ox 08/28/20 11:01 94 08/28/20 11:00 37.2 C 95 16 113/57 L 95 08/28/20 10:00 37.2 C 94 26 H 113/54 L 96 08/28/20 09:00 91 16 116/52 L 93 08/28/20 08:00 37.0 C 90 18 108/53 L 95 Medical Necessity - Tobacco Use Smoking Status: Current every day smoker Tobacco Use: Cigarettes Assessment/Plan All Active Problems (Last Reviewed 11/19/19 @ 10:29 by Radha Sandhu PA, PA) Diabetic nephropathy, type I (Acute) Chest pain (Acute) S/P PTCA (percutaneous transluminal coronary angioplasty) (Acute) Diabetes (Acute) Hypotension (Acute) Renal insufficiency (Acute) Hyperkalemia (Acute) NSTEMI (non-ST elevated myocardial infarction) (Resolved 01/12/18) DKA (diabetic ketoacidoses) (Resolved) Intractable nausea and vomiting (Resolved) Ketoacidosis (Resolved) 1. DKA: in DM type 1. resolved. on basal and SSI. 2. hypotension: resolved. likely 2/2 volume depletion from DKA 3. UMA: improving. likely 2/2 prerenal and ATN. monitor. baseline around 1.7 4. hyperkalemia: resolved. 5. chest pain: trivial elevation of troponins, likely 2/2 to above. echo pending. cardiology following. on ASA, clopidogrel, metoprolol. 6. VTE prophylaxis: SQ heparin. HDS, transfer to PCU. CHANELL RN. Inpatient E&M: 74242 Subs Hosp L2
[2020-08-28] MEDS: Ondansetron 4 MG/2 ML Vial IV (12:45)
[2020-08-28] MEDS: Calcium Gluconate 1 GM/10 ML Vial IV (13:29)
--- NOTE | 2020-08-28 15:30 | CASEMGMT ---
RN CM CRYSTAL MOUNTER CM placed call to pt's room and assessment completed via phone. Pt is A/O at this time and answers all questions appropriately.?? Care providers, pharmacy, and demographics verified/updated at this time. PCP: Dr Lujan Specialists: Nephrology--Dr Huerta. Has an upcoming appt on 08/30. Endocrinology--Dr No. Has an upcoming appt on Nov 20 as a new pt. Preferred Pharmacy: [facility] Retail Insurance: [employer] Prescription Benefit:? Yes, [employer] LNOK: , Jose. 2 Daughters: Otilia and Bobbi Living Arrangements: Lives w/her and daughter, Otilia, who has Down's Syndrome, lives with them. They live in a 2-story home, [facility]. 3 steps to enter home. Pt is Independent w/ADL's and IADL's. She works full-time @ [employer]. Transportation: Pt states drives self and states no transportation concerns at this time.? will take her home @ d/c DME: ? States has the following DME:? Glucometer and insulin pump. Pt states no need for further DME at this time.? Per notes, Insulin pump has not been functioning properly for past few days and pt is comfortable giving self SQ injections until she has a functioning pump. HHC/SNF: No history of either. No needs identified. PT/OT evals have been reviewed and additional therapy recommended. Pt states may be interested in script for OP therapy. Pt wishes to return home and states has no concerns with going home at time of discharge.? CM to follow for any discharge planning/needs.? Pt voices no concerns/needs at this time.? Advised pt to ask for CM if any questions/concerns/needs arise.? Voices understanding. PLAN: ?Home. Pt may be interested in script for OP therapy. Valdo ROWELL RN, CM
[2020-08-28] MEDS: proCHLORPERazine 10 MG/2 ML Vial 5 MG IV (17:20)
[2020-08-28 17:30] LABS: Bedside Glucose 193 mg/dL (70-110)
[2020-08-28] MEDS: Atorvastatin Calcium 20 MG Tablet PO (20:46)
[2020-08-28] MEDS: Metoprolol Tartrate 50 MG Tablet PO (20:46)
[2020-08-28] MEDS: Gabapentin 300 MG Capsule PO (20:47)
[2020-08-28 20:56] LABS: Bedside Glucose 157 mg/dL (70-110)
--- NOTE | 2020-08-28 21:37 | RAD_ITS ---
HISTORY: CHEST PAIN ADDITIONAL HISTORY: None provided. EXAMINATION/TECHNIQUE: XR Chest 1 View AP/PA Number of images including paperwork: 1 COMPARISON: 08/26/2020 FINDINGS: LUNGS AND PLEURA: Blunting of the right costophrenic angle with mild right opacity. No dense consolidation. CARDIAC SILHOUETTE: Unremarkable. MEDIASTINUM AND LIDIA: Unremarkable. UPPER ABDOMEN: Unremarkable. SKELETON AND SOFT TISSUES: No acute skeletal findings. OTHER DEVICES AND HARDWARE: None. RAD/Chest 1 View (Portable) IMPRESSION: Small right pleural effusion with right basilar infiltrate and/or atelectasis. at 2257 Reported and signed by: Marylu Galloway MD Electronically Signed: Marylu Galloway MD at 22:56 EDT Tel , Service support ,
[2020-08-29] VITALS (17 sets, daily range): BP systolic 111–148; BP diastolic 50–70; PULSE 68–83; RESP 16–20; TEMP 36.6–37.5; O2SAT 86–97
[2020-08-29 06:22] LABS: Absolute Lymphocyte Count 1.82 X10^3/uL (0.83-4.51); Absolute Neutrophil Count 5.2 X10^3/uL (2.0-7.7); Basophil# 0.01 X10^3/uL; Basophil% 0.1 % (0-1); Eosinophil# 0.12 X10^3/uL; Eosinophils% 1.6 % (0-5); Hematocrit 29.6 % (37-47); Lymphocyte # 1.82 X10^3/ul (4.0); Lymphocyte % 23.6 % (19-41); Mean Corp Hgb Conc 30.4 g/dL (32-36); Mean Corpuscular Volume 98.7 fL (81-99); Mean Platelet Vol. 10.2 fl (6.2-12.0); Monocyte# 0.52 X10^3/uL; Monocyte% 6.7 % (0-10); NRBC Flagged by Analyzer 0 % (0-5); Neutrophil # 5.22 X10^3/uL (2.7-7.7); Neutrophil % 67.6 % (47-70); POSITIVE COUNT YES; RBC Distribution Width CV 13.8 % (11.6-14.6); White Blood Count 7.7 K/mm3 (4.4-11.0)
[2020-08-29 06:45] LABS: Differential Indicated SCAN CRITERIA MET; Platelet Count 49 K/mm3 (150-450)
[2020-08-29 06:49] LABS: Albumin, Serum 2.3 g/dL (3.2-5.0); BUN 47 mg/dL (7-18); Calcium,Total 7.7 mg/dL (8.5-10.1); Chloride 118 mmol/L (98-107); Creatinine, Serum 2.77 mg/dL (0.55-1.02); EST Glomerular Filtration Rate 19 mL/min (>60); Est Glom Filt Rate - Afr Amer 22 mL/min (>60); Estimated Creatinine Clearance 18.62 ml/min; Ferritin 85 ng/mL (8-252); Glucose 163 mg/dL (74-106); Iron 75 ug/dL (50-170); Potassium 4.8 mmol/L (3.5-5.1); Sodium Level 142 mmol/L (136-145)
[2020-08-29 06:55] LABS: Bedside Glucose 139 mg/dL (70-110)
[2020-08-29] MEDS: Ipratropium/Albuterol Sulfate 3 ML AMPUL.NEB INHALATION (06:55)
--- NOTE | 2020-08-29 06:56 | PN_ITS ---
Subjective: Patient transferred out of the intensive care unit yesterday. Patient reported some dyspnea overnight, but improved on 2 L nasal cannula. This resulted in a chest x-ray showing right lower lobe atelectasis. Patient is reporting a cough that is nonproductive. No chest pain is reported. General: Alert, Oriented x3, Cooperative, - - Mild conversational dyspnea. HEENT: Atraumatic, PERRLA, EOMI, Normocephalic, - - No scleral icterus or injection noted Oral: Moist Mucosa, No Gingival or Mucosal Lesions/ Ulcerations Neck: Supple, No JVD, No Nodes, Trachea Midline Lungs: No rhonchi, No wheeze, Diminished, Rales - Right base Cardiovascular: Regular rate, Regular Rhythm, Normal S1, Normal S2, No murmurs, No rub noted, No Gallop Abdomen: Bowel Sounds Present, Soft, Non Tender, Non-Distended Extremities: No clubbing, No cyanosis, No edema, Capillary Refill Less than 3 Seconds Skin: No rashes, No breakdown Musculoskeletal: No Tenderness to Palpation of Joints or Extremities Lymphatic: No Cervical, Supraclavicular, or Inguinal Adenopathy Neurological: Cranial nerves II-XII grossly intact, Neuro grossly intact, Motor Exam 5/5 strength throughout Psych/Mental Status: Alert and oriented to time, place, person, mood and affect Vital Signs Temp Pulse Resp BP Pulse Ox 37.5 C H 75 20 H 111/50 L 92 08/29/20 02:26 08/29/20 03:00 08/29/20 02:34 08/29/20 02:26 08/29/20 02:26 Oxygen Flow Rate (L/min) 2 Oxygen Delivery Method Nasal Cannula Weight: 54.6 kg Body Mass Index (BMI) 17.4 Finger Stick Blood Glucose 210 Intake and Output for Last 24 Hours 08/27/20 08/28/20 08/29/20 23:59 23:59 23:59 Intake Total 8017.32 / 8017.32 2823.00 / 2823.00 550 / 550 Output Total 0 / 0 1000 / 1000 550 / 550 Balance 8017.32 / 8017.32 1823.00 / 1823.00 0 / 0 Labs (Last 48 Hours) 08/27/20 08/27/20 08/27/20 06:25 06:25 06:25 WBC 13.2 H RBC 3.01 L Hgb 9.1 L Hct 30.8 L MCV 102.3 H D MCH 30.2 MCHC 29.5 L D RDW Std Deviation 48.3 H RDW Coeff of Iron 12.8 Plt Count 168 MPV 10.6 Immature Gran % (Auto) 0.800 Neut % (Auto) 83.4 H Lymph % (Auto) 7.9 L [place] % (Auto) 7.5 Eos % (Auto) 0.1 Baso % (Auto) 0.3 Absolute Neuts (auto) 11.0 H Absolute Lymphs (auto) 1.04 Nucleated RBC % 0 Specimen Type Sample Site pH Bicarbonate Actual Total CO2 Base Excess O2 Saturation ABG pCO2 ABG pO2 O2 Delivery Device Sodium 132 L Potassium 6.7 H* Chloride 104 Carbon Dioxide 11.0 L Anion Gap 17 H BUN 56 H Creatinine 3.87 H Estim Creat Clear Calc 11.93 Est GFR (MDRD) Af Amer 15 L Est GFR (MDRD) Non-Af 13 L BUN/Creatinine Ratio 14.5 Glucose 699 H* Hemoglobin A1c 7.6 H Serum Osmolality Calcium 7.5 L Phosphorus Magnesium Iron Ferritin Total Bilirubin 0.40 AST 19 ALT 14 Alkaline Phosphatase 61 Total Protein 4.9 L Albumin 2.6 L Globulin 2.3 Albumin/Globulin Ratio 1.1 Triglycerides 262 H Cholesterol 93 LDL Cholesterol 12 VLDL Cholesterol 52 H HDL Cholesterol 29 L Urine Color Urine Clarity Urine pH Ur Specific [place] Urine Protein Urine Glucose (UA) Urine Ketones Urine Occult Blood Urine Nitrite Urine Bilirubin Urine Urobilinogen Ur Leukocyte Esterase Urine RBC Urine WBC Ur Squamous Epith Cells Urine Bacteria Urine Mucus Ur Random Sodium Urine Creatinine Acetone Level COVID-19 (MARISA) POC Glucose 08/27/20 08/27/20 08/27/20 07:09 08:07 09:25 WBC RBC Hgb Hct MCV MCH MCHC RDW Std Deviation RDW Coeff of Iron Plt Count MPV Immature Gran % (Auto) Neut % (Auto) Lymph % (Auto) [place] % (Auto) Eos % (Auto) Baso % (Auto) Absolute Neuts (auto) Absolute Lymphs (auto) Nucleated RBC % Specimen Type ART Sample Site R Brach pH 7.06 L* Bicarbonate Actual 10.2 L Total CO2 11 Base Excess -20 L O2 Saturation 91 L ABG pCO2 36.0 ABG pO2 86 O2 Delivery Device Room Air Sodium Potassium Chloride Carbon Dioxide Anion Gap BUN Creatinine Estim Creat Clear Calc Est GFR (MDRD) Af Amer Est GFR (MDRD) Non-Af BUN/Creatinine Ratio Glucose Hemoglobin A1c Serum Osmolality Calcium Phosphorus Magnesium Iron Ferritin Total Bilirubin AST ALT Alkaline Phosphatase Total Protein Albumin Globulin Albumin/Globulin Ratio Triglycerides Cholesterol LDL Cholesterol VLDL Cholesterol HDL Cholesterol Urine Color Urine Clarity Urine pH Ur Specific [place] Urine Protein Urine Glucose (UA) Urine Ketones Urine Occult Blood Urine Nitrite Urine Bilirubin Urine Urobilinogen Ur Leukocyte Esterase Urine RBC Urine WBC Ur Squamous Epith Cells Urine Bacteria Urine Mucus Ur Random Sodium Urine Creatinine Acetone Level COVID-19 (MARISA) Not Detected POC Glucose > 500 H* 08/27/20 08/27/20 08/27/20 10:02 11:08 11:10 WBC RBC Hgb Hct MCV MCH MCHC RDW Std Deviation RDW Coeff of Iron Plt Count MPV Immature Gran % (Auto) Neut % (Auto) Lymph % (Auto) [place] % (Auto) Eos % (Auto) Baso % (Auto) Absolute Neuts (auto) Absolute Lymphs (auto) Nucleated RBC % Specimen Type Sample Site pH Bicarbonate Actual Total CO2 Base Excess O2 Saturation ABG pCO2 ABG pO2 O2 Delivery Device Sodium 137 Potassium 4.9 Chloride 108 H Carbon Dioxide 12.0 L Anion Gap 17 H BUN 57 H Creatinine 3.86 H Estim Creat Clear Calc 11.96 Est GFR (MDRD) Af Amer 15 L Est GFR (MDRD) Non-Af 13 L BUN/Creatinine Ratio 14.8 Glucose 654 H* Hemoglobin A1c Serum Osmolality Calcium 7.1 L Phosphorus Magnesium 1.7 Iron Ferritin Total Bilirubin AST ALT Alkaline Phosphatase Total Protein Albumin Globulin Albumin/Globulin Ratio Triglycerides Cholesterol LDL Cholesterol VLDL Cholesterol HDL Cholesterol Urine Color Urine Clarity Urine pH Ur Specific [place] Urine Protein Urine Glucose (UA) Urine Ketones Urine Occult Blood Urine Nitrite Urine Bilirubin Urine Urobilinogen Ur Leukocyte Esterase Urine RBC Urine WBC Ur Squamous Epith Cells Urine Bacteria Urine Mucus Ur Random Sodium Urine Creatinine Acetone Level COVID-19 (MARISA) POC Glucose > 500 H* > 500 H* 08/27/20 08/27/20 08/27/20 11:10 11:10 11:10 WBC RBC Hgb Hct MCV MCH MCHC RDW Std Deviation RDW Coeff of Iron Plt Count MPV Immature Gran % (Auto) Neut % (Auto) Lymph % (Auto) [place] % (Auto) Eos % (Auto) Baso % (Auto) Absolute Neuts (auto) Absolute Lymphs (auto) Nucleated RBC % Specimen Type Sample Site pH Bicarbonate Actual Total CO2 Base Excess O2 Saturation ABG pCO2 ABG pO2 O2 Delivery Device Sodium Cancelled Potassium Cancelled Chloride Cancelled Carbon Dioxide Cancelled Anion Gap Cancelled BUN Cancelled Creatinine Cancelled Estim Creat Clear Calc Cancelled Est GFR (MDRD) Af Amer Cancelled Est GFR (MDRD) Non-Af Cancelled BUN/Creatinine Ratio Cancelled Glucose Cancelled Cancelled Hemoglobin A1c Serum Osmolality 331 H Calcium Cancelled Phosphorus Magnesium Iron Ferritin Total Bilirubin AST ALT Alkaline Phosphatase Total Protein Albumin Globulin Albumin/Globulin Ratio Triglycerides Cholesterol LDL Cholesterol VLDL Cholesterol HDL Cholesterol Urine Color Urine Clarity Urine pH Ur Specific [place] Urine Protein Urine Glucose (UA) Urine Ketones Urine Occult Blood Urine Nitrite Urine Bilirubin Urine Urobilinogen Ur Leukocyte Esterase Urine RBC Urine WBC Ur Squamous Epith Cells Urine Bacteria Urine Mucus Ur Random Sodium Urine Creatinine Acetone Level MODERATE H COVID-19 (MARISA) POC Glucose 08/27/20 08/27/20 08/27/20 12:07 12:59 14:08 WBC RBC Hgb Hct MCV MCH MCHC RDW Std Deviation RDW Coeff of Iron Plt Count MPV Immature Gran % (Auto) Neut % (Auto) Lymph % (Auto) [place] % (Auto) Eos % (Auto) Baso % (Auto) Absolute Neuts (auto) Absolute Lymphs (auto) Nucleated RBC % Specimen Type Sample Site pH Bicarbonate Actual Total CO2 Base Excess O2 Saturation ABG pCO2 ABG pO2 O2 Delivery Device Sodium Potassium Chloride Carbon Dioxide Anion Gap BUN Creatinine Estim Creat Clear Calc Est GFR (MDRD) Af Amer Est GFR (MDRD) Non-Af BUN/Creatinine Ratio Glucose Hemoglobin A1c Serum Osmolality Calcium Phosphorus Magnesium Iron Ferritin Total Bilirubin AST ALT Alkaline Phosphatase Total Protein Albumin Globulin Albumin/Globulin Ratio Triglycerides Cholesterol LDL Cholesterol VLDL Cholesterol HDL Cholesterol Urine Color Urine Clarity Urine pH Ur Specific [place] Urine Protein Urine Glucose (UA) Urine Ketones Urine Occult Blood Urine Nitrite Urine Bilirubin Urine Urobilinogen Ur Leukocyte Esterase Urine RBC Urine WBC Ur Squamous Epith Cells Urine Bacteria Urine Mucus Ur Random Sodium Urine Creatinine Acetone Level COVID-19 (MARISA) POC Glucose > 500 H* > 500 H* 462 H* 08/27/20 08/27/20 08/27/20 15:00 15:08 16:08 WBC RBC Hgb Hct MCV MCH MCHC RDW Std Deviation RDW Coeff of Iron Plt Count MPV Immature Gran % (Auto) Neut % (Auto) Lymph % (Auto) [place] % (Auto) Eos % (Auto) Baso % (Auto) Absolute Neuts (auto) Absolute Lymphs (auto) Nucleated RBC % Specimen Type Sample Site pH Bicarbonate Actual Total CO2 Base Excess O2 Saturation ABG pCO2 ABG pO2 O2 Delivery Device Sodium 139 Potassium 3.9 Chloride 112 H Carbon Dioxide 17.0 L Anion Gap 10 BUN 56 H Creatinine 3.83 H Estim Creat Clear Calc 13.46 Est GFR (MDRD) Af Amer 15 L Est GFR (MDRD) Non-Af 13 L BUN/Creatinine Ratio 14.6 Glucose 459 H* Hemoglobin A1c Serum Osmolality Calcium 6.9 L Phosphorus Magnesium Iron Ferritin Total Bilirubin AST ALT Alkaline Phosphatase Total Protein Albumin Globulin Albumin/Globulin Ratio Triglycerides Cholesterol LDL Cholesterol VLDL Cholesterol HDL Cholesterol Urine Color Urine Clarity Urine pH Ur Specific [place] Urine Protein Urine Glucose (UA) Urine Ketones Urine Occult Blood Urine Nitrite Urine Bilirubin Urine Urobilinogen Ur Leukocyte Esterase Urine RBC Urine WBC Ur Squamous Epith Cells Urine Bacteria Urine Mucus Ur Random Sodium Urine Creatinine Acetone Level COVID-19 (MARISA) POC Glucose 451 H* 419 H 08/27/20 08/27/20 08/27/20 17:06 18:04 19:03 WBC RBC Hgb Hct MCV MCH MCHC RDW Std Deviation RDW Coeff of Iron Plt Count MPV Immature Gran % (Auto) Neut % (Auto) Lymph % (Auto) [place] % (Auto) Eos % (Auto) Baso % (Auto) Absolute Neuts (auto) Absolute Lymphs (auto) Nucleated RBC % Specimen Type Sample Site pH Bicarbonate Actual Total CO2 Base Excess O2 Saturation ABG pCO2 ABG pO2 O2 Delivery Device Sodium Potassium Chloride Carbon Dioxide Anion Gap BUN Creatinine Estim Creat Clear Calc Est GFR (MDRD) Af Amer Est GFR (MDRD) Non-Af BUN/Creatinine Ratio Glucose Hemoglobin A1c Serum Osmolality Calcium Phosphorus Magnesium Iron Ferritin Total Bilirubin AST ALT Alkaline Phosphatase Total Protein Albumin Globulin Albumin/Globulin Ratio Triglycerides Cholesterol LDL Cholesterol VLDL Cholesterol HDL Cholesterol Urine Color Urine Clarity Urine pH Ur Specific [place] Urine Protein Urine Glucose (UA) Urine Ketones Urine Occult Blood Urine Nitrite Urine Bilirubin Urine Urobilinogen Ur Leukocyte Esterase Urine RBC Urine WBC Ur Squamous Epith Cells Urine Bacteria Urine Mucus Ur Random Sodium Urine Creatinine Acetone Level COVID-19 (MARISA) POC Glucose 388 H 360 H 282 H 08/27/20 08/27/20 08/27/20 20:15 21:11 22:39 WBC RBC Hgb Hct MCV MCH MCHC RDW Std Deviation RDW Coeff of Iron Plt Count MPV Immature Gran % (Auto) Neut % (Auto) Lymph % (Auto) [place] % (Auto) Eos % (Auto) Baso % (Auto) Absolute Neuts (auto) Absolute Lymphs (auto) Nucleated RBC % Specimen Type Sample Site pH Bicarbonate Actual Total CO2 Base Excess O2 Saturation ABG pCO2 ABG pO2 O2 Delivery Device Sodium Potassium Chloride Carbon Dioxide Anion Gap BUN Creatinine Estim Creat Clear Calc Est GFR (MDRD) Af Amer Est GFR (MDRD) Non-Af BUN/Creatinine Ratio Glucose Hemoglobin A1c Serum Osmolality Calcium Phosphorus Magnesium Iron Ferritin Total Bilirubin AST ALT Alkaline Phosphatase Total Protein Albumin Globulin Albumin/Globulin Ratio Triglycerides Cholesterol LDL Cholesterol VLDL Cholesterol HDL Cholesterol Urine Color Urine Clarity Urine pH Ur Specific [place] Urine Protein Urine Glucose (UA) Urine Ketones Urine Occult Blood Urine Nitrite Urine Bilirubin Urine Urobilinogen Ur Leukocyte Esterase Urine RBC Urine WBC Ur Squamous Epith Cells Urine Bacteria Urine Mucus Ur Random Sodium Urine Creatinine Acetone Level COVID-19 (MARISA) POC Glucose 240 H 220 H 143 H 08/28/20 08/28/20 08/28/20 00:05 00:40 02:01 WBC RBC Hgb Hct MCV MCH MCHC RDW Std Deviation RDW Coeff of Iron Plt Count MPV Immature Gran % (Auto) Neut % (Auto) Lymph % (Auto) [place] % (Auto) Eos % (Auto) Baso % (Auto) Absolute Neuts (auto) Absolute Lymphs (auto) Nucleated RBC % Specimen Type Sample Site pH Bicarbonate Actual Total CO2 Base Excess O2 Saturation ABG pCO2 ABG pO2 O2 Delivery Device Sodium 145 Potassium 3.2 L Chloride 116 H Carbon Dioxide 20.0 L Anion Gap 9 BUN 54 H Creatinine 3.39 H Estim Creat Clear Calc 15.21 Est GFR (MDRD) Af Amer 18 L Est GFR (MDRD) Non-Af 15 L BUN/Creatinine Ratio 15.9 Glucose 97 Hemoglobin A1c Serum Osmolality Calcium 6.7 L Phosphorus Magnesium Iron Ferritin Total Bilirubin AST ALT Alkaline Phosphatase Total Protein Albumin Globulin Albumin/Globulin Ratio Triglycerides Cholesterol LDL Cholesterol VLDL Cholesterol HDL Cholesterol Urine Color Urine Clarity Urine pH Ur Specific [place] Urine Protein Urine Glucose (UA) Urine Ketones Urine Occult Blood Urine Nitrite Urine Bilirubin Urine Urobilinogen Ur Leukocyte Esterase Urine RBC Urine WBC Ur Squamous Epith Cells Urine Bacteria Urine Mucus Ur Random Sodium Urine Creatinine Acetone Level COVID-19 (MARISA) POC Glucose 95 50 L 08/28/20 08/28/20 08/28/20 02:29 03:11 03:30 WBC RBC Hgb Hct MCV MCH MCHC RDW Std Deviation RDW Coeff of Iron Plt Count MPV Immature Gran % (Auto) Neut % (Auto) Lymph % (Auto) [place] % (Auto) Eos % (Auto) Baso % (Auto) Absolute Neuts (auto) Absolute Lymphs (auto) Nucleated RBC % Specimen Type Sample Site pH Bicarbonate Actual Total CO2 Base Excess O2 Saturation ABG pCO2 ABG pO2 O2 Delivery Device Sodium Potassium Chloride Carbon Dioxide Anion Gap BUN Creatinine Estim Creat Clear Calc Est GFR (MDRD) Af Amer Est GFR (MDRD) Non-Af BUN/Creatinine Ratio Glucose Hemoglobin A1c Serum Osmolality Calcium Phosphorus Magnesium Iron Ferritin Total Bilirubin AST ALT Alkaline Phosphatase Total Protein Albumin Globulin Albumin/Globulin Ratio Triglycerides Cholesterol LDL Cholesterol VLDL Cholesterol HDL Cholesterol Urine Color Yellow Urine Clarity Clear Urine pH 5.0 Ur Specific [place] 1.020 Urine Protein 30 H Urine Glucose (UA) 50 H Urine Ketones 5 H Urine Occult Blood 10 H Urine Nitrite Negative Urine Bilirubin Negative Urine Urobilinogen Normal Ur Leukocyte Esterase Negative Urine RBC 0-5 SEEN Urine WBC 0 SEEN Ur Squamous Epith Cells 0 SEEN Urine Bacteria 0 SEEN Urine Mucus 0 SEEN Ur Random Sodium Urine Creatinine Acetone Level COVID-19 (MARISA) POC Glucose 116 H 137 H 08/28/20 08/28/20 08/28/20 03:30 03:58 04:40 WBC RBC Hgb Hct MCV MCH MCHC RDW Std Deviation RDW Coeff of Iron Plt Count MPV Immature Gran % (Auto) Neut % (Auto) Lymph % (Auto) [place] % (Auto) Eos % (Auto) Baso % (Auto) Absolute Neuts (auto) Absolute Lymphs (auto) Nucleated RBC % Specimen Type Sample Site pH Bicarbonate Actual Total CO2 Base Excess O2 Saturation ABG pCO2 ABG pO2 O2 Delivery Device Sodium 141 Potassium 4.1 Chloride 113 H Carbon Dioxide 17.0 L Anion Gap 11 BUN 53 H Creatinine 3.34 H Estim Creat Clear Calc 15.44 Est GFR (MDRD) Af Amer 18 L Est GFR (MDRD) Non-Af 15 L BUN/Creatinine Ratio 15.9 Glucose 218 H Hemoglobin A1c Serum Osmolality Calcium 6.8 L Phosphorus Magnesium Iron Ferritin Total Bilirubin AST ALT Alkaline Phosphatase Total Protein Albumin Globulin Albumin/Globulin Ratio Triglycerides Cholesterol LDL Cholesterol VLDL Cholesterol HDL Cholesterol Urine Color Urine Clarity Urine pH Ur Specific [place] Urine Protein Urine Glucose (UA) Urine Ketones Urine Occult Blood Urine Nitrite Urine Bilirubin Urine Urobilinogen Ur Leukocyte Esterase Urine RBC Urine WBC Ur Squamous Epith Cells Urine Bacteria Urine Mucus Ur Random Sodium 24 Urine Creatinine 146.00 Acetone Level COVID-19 (MARISA) POC Glucose 157 H 08/28/20 08/28/20 08/28/20 05:11 06:21 07:14 WBC RBC Hgb Hct MCV MCH MCHC RDW Std Deviation RDW Coeff of Iron Plt Count MPV Immature Gran % (Auto) Neut % (Auto) Lymph % (Auto) [place] % (Auto) Eos % (Auto) Baso % (Auto) Absolute Neuts (auto) Absolute Lymphs (auto) Nucleated RBC % Specimen Type Sample Site pH Bicarbonate Actual Total CO2 Base Excess O2 Saturation ABG pCO2 ABG pO2 O2 Delivery Device Sodium Potassium Chloride Carbon Dioxide Anion Gap BUN Creatinine Estim Creat Clear Calc Est GFR (MDRD) Af Amer Est GFR (MDRD) Non-Af BUN/Creatinine Ratio Glucose Hemoglobin A1c Serum Osmolality Calcium Phosphorus Magnesium Iron Ferritin Total Bilirubin AST ALT Alkaline Phosphatase Total Protein Albumin Globulin Albumin/Globulin Ratio Triglycerides Cholesterol LDL Cholesterol VLDL Cholesterol HDL Cholesterol Urine Color Urine Clarity Urine pH Ur Specific [place] Urine Protein Urine Glucose (UA) Urine Ketones Urine Occult Blood Urine Nitrite Urine Bilirubin Urine Urobilinogen Ur Leukocyte Esterase Urine RBC Urine WBC Ur Squamous Epith Cells Urine Bacteria Urine Mucus Ur Random Sodium Urine Creatinine Acetone Level COVID-19 (MARISA) POC Glucose 223 H 237 H 210 H 08/28/20 08/28/20 08/28/20 10:11 17:16 20:45 WBC RBC Hgb Hct MCV MCH MCHC RDW Std Deviation RDW Coeff of Iron Plt Count MPV Immature Gran % (Auto) Neut % (Auto) Lymph % (Auto) [place] % (Auto) Eos % (Auto) Baso % (Auto) Absolute Neuts (auto) Absolute Lymphs (auto) Nucleated RBC % Specimen Type Sample Site pH Bicarbonate Actual Total CO2 Base Excess O2 Saturation ABG pCO2 ABG pO2 O2 Delivery Device Sodium Potassium Chloride Carbon Dioxide Anion Gap BUN Creatinine Estim Creat Clear Calc Est GFR (MDRD) Af Amer Est GFR (MDRD) Non-Af BUN/Creatinine Ratio Glucose Hemoglobin A1c Serum Osmolality Calcium Phosphorus Magnesium Iron Ferritin Total Bilirubin AST ALT Alkaline Phosphatase Total Protein Albumin Globulin Albumin/Globulin Ratio Triglycerides Cholesterol LDL Cholesterol VLDL Cholesterol HDL Cholesterol Urine Color Urine Clarity Urine pH Ur Specific [place] Urine Protein Urine Glucose (UA) Urine Ketones Urine Occult Blood Urine Nitrite Urine Bilirubin Urine Urobilinogen Ur Leukocyte Esterase Urine RBC Urine WBC Ur Squamous Epith Cells Urine Bacteria Urine Mucus Ur Random Sodium Urine Creatinine Acetone Level COVID-19 (MARISA) POC Glucose 259 H 193 H 157 H 08/29/20 08/29/20 08/29/20 06:05 06:05 06:44 WBC 7.7 RBC 3.00 L Hgb 9.0 L Hct 29.6 L MCV 98.7 MCH 30.0 MCHC 30.4 L RDW Std Deviation 50.0 H RDW Coeff of Iron 13.8 Plt Count 49 L* MPV 10.2 Immature Gran % (Auto) 0.400 Neut % (Auto) 67.6 Lymph % (Auto) 23.6 [place] % (Auto) 6.7 Eos % (Auto) 1.6 Baso % (Auto) 0.1 Absolute Neuts (auto) 5.2 Absolute Lymphs (auto) 1.82 Nucleated RBC % 0 Specimen Type Sample Site pH Bicarbonate Actual Total CO2 Base Excess O2 Saturation ABG pCO2 ABG pO2 O2 Delivery Device Sodium 142 Potassium 4.8 Chloride 118 H Carbon Dioxide 18.0 L Anion Gap BUN 47 H Creatinine 2.77 H Estim Creat Clear Calc 18.62 Est GFR (MDRD) Af Amer 22 L Est GFR (MDRD) Non-Af 19 L BUN/Creatinine Ratio 17.0 Glucose 163 H Hemoglobin A1c Serum Osmolality Calcium 7.7 L Phosphorus 4.0 Magnesium Iron 75 Ferritin 85 Total Bilirubin AST ALT Alkaline Phosphatase Total Protein Albumin 2.3 L Globulin Albumin/Globulin Ratio Triglycerides Cholesterol LDL Cholesterol VLDL Cholesterol HDL Cholesterol Urine Color Urine Clarity Urine pH Ur Specific [place] Urine Protein Urine Glucose (UA) Urine Ketones Urine Occult Blood Urine Nitrite Urine Bilirubin Urine Urobilinogen Ur Leukocyte Esterase Urine RBC Urine WBC Ur Squamous Epith Cells Urine Bacteria Urine Mucus Ur Random Sodium Urine Creatinine Acetone Level COVID-19 (MARISA) POC Glucose 139 H Microbiology 08/27/20 05:25 Mucosa - Nasopharyngeal Respiratory Panel (PCR) - Final Clinical Impression(s) from Imaging Studies Chest X-Ray 08/28/20 21:37 IMPRESSION: Small right pleural effusion with right basilar infiltrate and/or atelectasis. at [id number] Reported and signed by: Marylu Galloway MD Electronically Signed: Marylu Galloway MD at 22:56 EDT Tel , Service support , Medical Necessity - Tobacco Use Smoking Status: Current every day smoker Tobacco Use: Cigarettes Assessment/Plan All Active Problems (Last Reviewed 11/19/19 @ 10:29 by Radha Sandhu PA, PA) Anemia (Acute) Hypocalcemia (Acute) Diabetic nephropathy, type I (Acute) Chest pain (Acute) S/P PTCA (percutaneous transluminal coronary angioplasty) (Acute) Diabetes (Acute) Hypotension (Acute) Renal insufficiency (Acute) Hyperkalemia (Acute) NSTEMI (non-ST elevated myocardial infarction) (Resolved 01/12/18) DKA (diabetic ketoacidoses) (Resolved) Intractable nausea and vomiting (Resolved) Ketoacidosis (Resolved) RECOMMENDATIONS: 1. Continue supplemental IV fluid hydration. 2. Hold antihypertensives. 3. Transition to Lantus with sliding scale 4. Monitor BMP serially and replete electrolytes as needed. 5. Defer work-up of chest pain to cardiology. 6. Discontinue heparin. Potentially send HIT antibodies if thrombocytopenia persists IMPRESSIONS: 1. Hypotension Suspect likely secondary to intravascular volume depletion in the setting of diabetic ketoacidosis. Continue IV volume resuscitation. Echocardiogram was relatively unremarkable except for elevated pulmonary artery pressures with diastolic dysfunction. Pending these results, patient may get a stress test. 2. Diabetic ketoacidosis Likely secondary to insulin pump nonfunctioning. Patient will be transitioned over to Lantus with sliding scale insulin. Patient is comfortable with this approach as this is what she used before the insulin pump. Patient does have an elevated hemoglobin A1c indicating poor control. Monitor serial electrolytes and replete as indicated. 3. Chest pain with indeterminate cardiac enzymes/history of coronary artery disease status post PCI Cardiology is currently following to assist with medical management. Echocardiogram will be obtained, but troponin trend was not impressive. 4. History of COPD and chronic tobacco dependency The patient is currently maintaining appropriate oxygen saturations on 2 L. Continue bronchodilator therapy as ordered. Patient appears to have right lower lobe atelectasis. Encourage incentive spirometer. Tobacco cessation counseling was provided. Nicotine replacement therapy will be continued. 5. Diabetes mellitus/hypertension/hyperlipidemia/anemia/tremor Complicates care, management, recovery and prognosis. Continue home medications as indicated. Tremor appears to be improved today. 6. Thrombocytopenia Exact etiology is unclear at this time. Patient is on heparin, so HIT would be a consideration. Will discontinue heparin. Increase ambulation to help with DVT prophylaxis. Defer to hospitalist on sending antibodies, but patient does not appear to be bleeding. Patient does not appear to have DIC clinically. Inpatient E&M: 70685 Subs Hosp L3
--- NOTE | 2020-08-29 07:34 | PN.CARD_ITS ---
Subjectve: patient seen and evaluated Objective: Vital Signs Temp Pulse Resp BP Pulse Ox 99.5 F H 75 20 H 111/50 L 92 08/29/20 02:26 08/29/20 03:00 08/29/20 02:34 08/29/20 02:26 08/29/20 02:26 Oxygen Flow Rate (L/min) 2 Oxygen Delivery Method Nasal Cannula Weight: 120 lb 5.958 oz Body Mass Index (BMI) 17.4 Finger Stick Blood Glucose 210 Intake and Output for Last 24 Hours 08/27/20 08/28/20 08/29/20 23:59 23:59 23:59 Intake Total 8017.32 / 8017.32 2823.00 / 2823.00 550 / 550 Output Total 0 / 0 1000 / 1000 550 / 550 Balance 8017.32 / 8017.32 1823.00 / 1823.00 0 / 0 General: Awake, Alert, Oriented x 3 HEENT: PERRL, EOMI, Sclera Non Icteric Neck: Supple, Good ROM, No Lymph Node Enlargement Lungs: Clear to auscultation Cardiovascular: Regular Rhythm, Normal S1, Normal S2, No Murmurs, No Rubs, No Gallops Vascular: No Carotid Bruits, Normal Femoral Pulses, Normal Radial Pulses, Normal Dorsalis Pedal Pulse, Normal Posterior Tibial Pulses Abdomen: Bowel Sounds Present, Soft, Non Tender, No HSM, No Organomegaly Extremities: No Cyanosis, No Clubbing, No edema Musculoskeletal: No Erythema Skin: No Rashes Lymphatic: No Lymph Node Enlargement Neurological: No Focal Motor or Sensory Deficit Psych/Mental Status: Appropriate 08/29/20 06:05: Sodium 142, Potassium 4.8, Chloride 118 H, Carbon Dioxide 18.0 L , BUN 47 H, Creatinine 2.77 H, Est GFR (MDRD) Af Amer 22 L, Est GFR (MDRD) Non- Af 19 L, BUN/Creatinine Ratio 17.0, Glucose 163 H, Calcium 7.7 L, Phosphorus 4.0, Iron 75, Ferritin 85 08/29/20 06:05: WBC 7.7, RBC 3.00 L, Hgb 9.0 L, Hct 29.6 L, MCV 98.7, MCH 30.0, MCHC 30.4 L, Plt Count 49 L*, MPV 10.2, Immature Gran % (Auto) 0.400, Neut % (Auto) 67.6, Lymph % (Auto) 23.6, [place] % (Auto) 6.7, Eos % (Auto) 1.6, Baso % (Auto) 0.1, Absolute Neuts (auto) 5.2, Nucleated RBC % 0 Rhythm: EKG: ECHO: Stress Test: Cardiac Cath: PCI: CT Surgery: Holter monitor: EPS: PPM: CXR: Chest CT Scan: Medical Necessity - Tobacco Use Smoking Status: Current every day smoker Tobacco Use: Cigarettes Assessment/Plan 1. Chest pain The patient presented with an atypical chest discomfort. Thus far her cardiac enzymes have been indeterminant. Her ECG has demonstrated the aforementioned findings. EKG looks normal at this morning. She does have trivially elevated cardiac enzymes. I suspect that the above is secondary to some element of demand ischemia. Would recommend medical therapy for now. * 2. CAD status post PCI She has undergone diagnosis of CAD in the past before and has required PCI. At the moment she will continue to be followed as noted above. Her medications can be adjusted as needed taken into consideration concerns of her renal insufficiency, her electrolyte dysfunction, and her hypotension. 3. Hyperlipidemia She will continue lipid-lowering therapy. 4. Hypertension She has a history of hypertension. Her blood pressure appears to be stable at this time. Her echocardiogram done yesterday demonstrated preserved left ventricular ejection fraction. Thank you for allowing me to participate in the care of your patient. Please don't hesitate to call if any issues arise.
[2020-08-29 08:28] LABS: Hypochromasia 1+; Platelet Estimate MKD DEC (ADEQ); Polychromasia RARE
--- NOTE | 2020-08-29 10:23 | PCM.PN.REN ---
Patient Problems: Active and Suspected Problems (Last Reviewed 11/19/19 @ 10:29 by Radha Sandhu PA, PA) Chest pain (Acute) S/P PTCA (percutaneous transluminal coronary angioplasty) (Acute) Diabetes (Acute) Hypotension (Acute) Renal insufficiency (Acute) Hyperkalemia (Acute) Subjective: renal function improved with increased urine output - Physical Exam Vitals/I&O's: Vital Signs Temp Pulse Resp BP Pulse Ox 98.5 F 79 18 126/61 H 95 08/29/20 08:26 08/29/20 08:26 08/29/20 08:26 08/29/20 08:26 08/29/20 08:26 Oxygen Flow Rate (L/min) 2 Oxygen Delivery Method Room Air Weight: 54.6 kg Body Mass Index (BMI) 17.4 Finger Stick Blood Glucose 210 Intake and Output for Last 24 Hours 08/27/20 08/28/20 08/29/20 23:59 23:59 23:59 Intake Total 8017.32 / 8017.32 2823.00 / 2823.00 550 / 550 Output Total 0 / 0 1000 / 1000 550 / 550 Balance 8017.32 / 8017.32 1823.00 / 1823.00 0 / 0 General: Alert, Oriented x3, Cooperative Lungs: Clear to auscultation Cardiovascular: Regular rate Extremities: No edema Psych/Mental Status: Alert and oriented to time, place, person, mood and affect Microbiology Past 72 Hours 08/27/20 05:25 Mucosa - Nasopharyngeal Respiratory Panel (PCR) - Final Laboratory Results 08/28/20 10:11: POC Glucose 259 H 08/28/20 17:16: POC Glucose 193 H 08/28/20 20:45: POC Glucose 157 H 08/29/20 06:05: Sodium 142, Potassium 4.8, Chloride 118 H, Carbon Dioxide 18.0 L, BUN 47 H, Creatinine 2.77 H, Estim Creat Clear Calc 18.62, Est GFR (MDRD) Af Amer 22 L, Est GFR (MDRD) Non-Af 19 L, BUN/Creatinine Ratio 17.0, Glucose 163 H, Calcium 7.7 L, Phosphorus 4.0, Iron 75, Ferritin 85, Albumin 2.3 L 08/29/20 06:05: WBC 7.7, RBC 3.00 L, Hgb 9.0 L, Hct 29.6 L, MCV 98.7, MCH 30.0, MCHC 30.4 L, RDW Std Deviation 50.0 H, RDW Coeff of Iron 13.8, Plt Count 49 L*, MPV 10.2, Immature Gran % (Auto) 0.400, Neut % (Auto) 67.6, Lymph % (Auto) 23.6, [place] % (Auto) 6.7, Eos % (Auto) 1.6, Baso % (Auto) 0.1, Absolute Neuts (auto) 5.2, Absolute Lymphs (auto) 1.82, Nucleated RBC % 0, Diff Path Review March foll, Platelet Estimate MKD DEC, Polychromasia RARE, Hypochromasia 1+ 08/29/20 06:44: POC Glucose 139 H Current Medications Acetaminophen (Acetaminophen 325 Mg Tablet) 650 mg PO Q6H PRN PRN PRN Reason: Pain Score 1-10/Temp > 100.7 F Al Hydroxide/Mg Hydroxide (Mag Hydrox/Al Hydrox/Simeth 30 Ml Udc) 30 ml PO Q6H PRN PRN PRN Reason: Gastric Burning Albuterol Sulfate (Albuterol 2.5 Mg/3 Ml Vial.Neb.) 2.5 mg INHALATION Q2H PRN PRN PRN Reason: Dyspnea, wheezing Last Admin: 08/26/20 22:14 Dose: 2.5 mg Documented by: Albuterol/Ipratropium (Ipratropium/Albuterol Sulfate 3 Ml Ampul.Neb) 3 ml INHALATION Q6HWA.RT [facility] Last Admin: 08/29/20 06:55 Dose: 3 ml Documented by: Aspirin (Aspirin E.C. 81 Mg Tablet) 81 mg PO DAILY [facility] Last Admin: 08/28/20 10:15 Dose: 81 mg Documented by: Atorvastatin Calcium (Atorvastatin Calcium 20 Mg Tablet) 20 mg PO QHS [facility] Last Admin: 08/28/20 20:46 Dose: 20 mg Documented by: Clopidogrel Bisulfate (Clopidogrel Bisulfate 75 Mg Tablet) 75 mg PO DAILY [facility] Last Admin: 08/28/20 10:15 Dose: 75 mg Documented by: Dextrose (Dextrose 50%-Water 25 Gm/50 Ml Disp.Syrin) 0 gm IV X1 PRN; Protocol PRN Reason: Hypoglycemia Protocol Last Admin: 08/28/20 02:05 Dose: 25 gm Documented by: Gabapentin (Gabapentin 300 Mg Capsule) 300 mg PO QHS [facility] Last Admin: 08/28/20 20:47 Dose: 300 mg Documented by: Guaifenesin (Guaifenesin 10 Ml Udc (200mg/10ml)) 20 ml PO Q4H PRN PRN PRN Reason: COUGH Insulin Glargine (Insulin Glargine 100 Units/Ml Pen) 10 units SC DAILY [facility] Last Admin: 08/28/20 10:12 Dose: 10 u Documented by: Insulin Human Lispro (Insulin Lispro 100 Unit/Ml Insuln.Pen) 0 unit SC [facility]; Protocol Last Admin: 08/29/20 06:45 Dose: Not Given Documented by: Melatonin (Melatonin 3 Mg Tablet) 3 mg PO QHS PRN PRN PRN Reason: INSOMNIA Metoprolol Tartrate (Metoprolol Tartrate 50 Mg Tablet) 50 mg PO BID [facility] Last Admin: 08/28/20 20:46 Dose: 50 mg Documented by: Nicotine (Nicotine 21 Mg Patch) 21 mg TRANSDERM. DAILY [facility] Last Admin: 08/28/20 10:15 Dose: 21 mg Documented by: Nitroglycerin (Nitroglycerin (Inpatient Use) 0.4 Mg Tab.Subl) 0.4 mg SUBLINGUAL Q5M PRN PRN Reason: CARDIAC/CHEST PAIN Ondansetron HCl (Ondansetron 4 Mg/2 Ml Vial) 4 mg IV Q8H PRN PRN PRN Reason: NAUSEA/VOMITING Last Admin: 08/28/20 12:45 Dose: 4 mg Documented by: Prochlorperazine Edisylate (Prochlorperazine 10 Mg/2 Ml Vial) 5 mg IV Q4H PRN PRN PRN Reason: Breakthrough Nausea/Vomiting Last Admin: 08/28/20 17:20 Dose: 5 mg Documented by: Psyllium Hydrophilic Mucilloid (Psyllium 1 Packet) 1 packet PO DAILY PRN PRN PRN Reason: Constipation Senna/Docusate Sodium (Senna/Docusate Sodium 1 Tablet) 2 tablet PO BID PRN PRN PRN Reason: Constipation Sodium Chloride (0.9% Saline Lock 10 Ml Syringe) 10 - 40 ml IV UD PRN PRN Reason: SALINE FLUSH Last Admin: 08/28/20 17:20 Dose: 10 ml Documented by: Throat Lozenges (Benzocaine/Menthol 1 Lozenge) 1 lozenge MUCOUS MEM Q2H PRN PRN PRN Reason: SORE THROAT Medical Necessity - Tobacco Use Smoking Status: Current every day smoker Tobacco Use: Cigarettes Assessment/Plan All Active Problems (Last Reviewed 11/19/19 @ 10:29 by Radha Sandhu PA, PA) Anemia (Acute) Hypocalcemia (Acute) Diabetic nephropathy, type I (Acute) Chest pain (Acute) S/P PTCA (percutaneous transluminal coronary angioplasty) (Acute) Diabetes (Acute) Hypotension (Acute) Renal insufficiency (Acute) Hyperkalemia (Acute) NSTEMI (non-ST elevated myocardial infarction) (Resolved 01/12/18) DKA (diabetic ketoacidoses) (Resolved) Intractable nausea and vomiting (Resolved) Ketoacidosis (Resolved) 1. Acute on CKD stage 4 due to diabetic nephropathy type 1. Baseline creatinine 1.7 now at 2.77 today. Acute event due to DKA, hypotension. FeNa <1%. Improved UOP. No need for hemodialysis 2. Acute hyperkalemia due to DKA, renal failure resolved. 3. AG Metabolic acidosis with ketones due to DKA. Continue with insulin therapy 4. DM type 1 on insulin pump 5. Hypotension improved 6. Chest pain, cardiology following 7. Hx CAD, [place], stents 8. Tobacco user 9. Anemia check iron studies 10. Hypocalcemia replace as needed
[2020-08-29 10:31] LABS: Bedside Glucose 269 mg/dL (70-110)
[2020-08-29 11:19] LABS: Hematocrit 32.5 % (37-47); Mean Corp Hgb Conc 30.8 g/dL (32-36); Mean Corpuscular Hgb 29.7 pg (27.0-32.0); Mean Corpuscular Volume 96.4 fL (81-99); Mean Platelet Vol. 10.4 fl (6.2-12.0); Platelet Count 148 K/mm3 (150-450); RBC Distribution Width CV 13.9 % (11.6-14.6); Red Blood Count 3.37 M/mm3 (4.2-5.4); White Blood Count 7.8 K/mm3 (4.4-11.0)
--- NOTE | 2020-08-29 13:00 | PN_ITS ---
Patient Problems: Active and Suspected Problems (Last Reviewed 11/19/19 @ 10:29 by Radha Sandhu PA, PA) Chest pain (Acute) S/P PTCA (percutaneous transluminal coronary angioplasty) (Acute) Diabetes (Acute) Hypotension (Acute) Renal insufficiency (Acute) Hyperkalemia (Acute) Subjective: Patient seen and examined. Denies further chest pain. Awaiting stress test results. - Physical Exam Vitals/I&O's: Vital Signs Temp Pulse Resp BP Pulse Ox 98.5 F 76 18 126/61 H 95 08/29/20 08:26 08/29/20 11:00 08/29/20 10:00 08/29/20 08:26 08/29/20 10:00 Oxygen Flow Rate (L/min) 1 Oxygen Delivery Method Nasal Cannula Weight: 120 lb 5.958 oz Body Mass Index (BMI) 17.4 Finger Stick Blood Glucose 210 Intake and Output for Last 24 Hours 08/27/20 08/28/20 08/29/20 23:59 23:59 23:59 Intake Total 8017.32 / 8017.32 2823.00 / 2823.00 550 / 550 Output Total 0 / 0 1000 / 1000 550 / 550 Balance 8017.32 / 8017.32 1823.00 / 1823.00 0 / 0 General: Alert, Oriented x3, Cooperative HEENT: Atraumatic, PERRLA, EOMI, Normocephalic Neck: Supple, No JVD, Negative Carotid Bruits Lungs: Clear to auscultation, Normal air movement Cardiovascular: Regular rate, No murmurs Abdomen: Bowel Sounds Present, Soft, Non Tender Extremities: No clubbing, No cyanosis, No edema, Capillary Refill Less than 3 Seconds Skin: No rashes, No breakdown Musculoskeletal: No Tenderness to Palpation of Joints or Extremities Neurological: Cranial nerves II-XII grossly intact, Neuro grossly intact Psych/Mental Status: Normal Affect, Appropriate Microbiology Past 72 Hours 08/27/20 05:25 Mucosa - Nasopharyngeal Respiratory Panel (PCR) - Final Laboratory Results 08/28/20 17:16: POC Glucose 193 H 08/28/20 20:45: POC Glucose 157 H 08/29/20 06:05: Sodium 142, Potassium 4.8, Chloride 118 H, Carbon Dioxide 18.0 L , BUN 47 H, Creatinine 2.77 H, Estim Creat Clear Calc 18.62, Est GFR (MDRD) Af Amer 22 L, Est GFR (MDRD) Non-Af 19 L, BUN/Creatinine Ratio 17.0, Glucose 163 H, Calcium 7.7 L, Phosphorus 4.0, Iron 75, Ferritin 85, Albumin 2.3 L 08/29/20 06:05: WBC 7.7, RBC 3.00 L, Hgb 9.0 L, Hct 29.6 L, MCV 98.7, MCH 30.0, MCHC 30.4 L, RDW Std Deviation 50.0 H, RDW Coeff of Iron 13.8, Plt Count 49 L*, MPV 10.2, Immature Gran % (Auto) 0.400, Neut % (Auto) 67.6, Lymph % (Auto) 23.6, [place] % (Auto) 6.7, Eos % (Auto) 1.6, Baso % (Auto) 0.1, Absolute Neuts (auto) 5.2, Absolute Lymphs (auto) 1.82, Nucleated RBC % 0, Diff Path Review March ajit, Platelet Estimate MKD DEC, Polychromasia RARE, Hypochromasia 1+ 08/29/20 06:44: POC Glucose 139 H 08/29/20 10:26: POC Glucose 269 H 08/29/20 10:56: WBC 7.8, RBC 3.37 L, Hgb 10.0 L, Hct 32.5 L, MCV 96.4, MCH 29.7, MCHC 30.8 L, RDW Std Deviation 49.0 H, RDW Coeff of Iron 13.9, Plt Count 148 L, MPV 10.4 Current Medications Acetaminophen (Acetaminophen 325 Mg Tablet) 650 mg PO Q6H PRN PRN PRN Reason: Pain Score 1-10/Temp > 100.7 F Al Hydroxide/Mg Hydroxide (Mag Hydrox/Al Hydrox/Simeth 30 Ml Udc) 30 ml PO Q6H PRN PRN PRN Reason: Gastric Burning Albuterol Sulfate (Albuterol 2.5 Mg/3 Ml Vial.Neb.) 2.5 mg INHALATION Q2H PRN PRN PRN Reason: Dyspnea, wheezing Last Admin: 08/26/20 22:14 Dose: 2.5 mg Documented by: Albuterol/Ipratropium (Ipratropium/Albuterol Sulfate 3 Ml Ampul.Neb) 3 ml INHALATION Q6HWA.RT [facility] Last Admin: 08/29/20 06:55 Dose: 3 ml Documented by: Aspirin (Aspirin E.C. 81 Mg Tablet) 81 mg PO DAILY [facility] Last Admin: 08/29/20 11:34 Dose: Not Given Documented by: Atorvastatin Calcium (Atorvastatin Calcium 20 Mg Tablet) 20 mg PO QHS [facility] Last Admin: 08/28/20 20:46 Dose: 20 mg Documented by: Clopidogrel Bisulfate (Clopidogrel Bisulfate 75 Mg Tablet) 75 mg PO DAILY [facility] Last Admin: 08/29/20 11:34 Dose: Not Given Documented by: Dextrose (Dextrose 50%-Water 25 Gm/50 Ml Disp.Syrin) 0 gm IV X1 PRN; Protocol PRN Reason: Hypoglycemia Protocol Last Admin: 08/28/20 02:05 Dose: 25 gm Documented by: Gabapentin (Gabapentin 300 Mg Capsule) 300 mg PO QHS [facility] Last Admin: 08/28/20 20:47 Dose: 300 mg Documented by: Guaifenesin (Guaifenesin 10 Ml Udc (200mg/10ml)) 20 ml PO Q4H PRN PRN PRN Reason: COUGH Insulin Glargine (Insulin Glargine 100 Units/Ml Pen) 10 units SC DAILY [facility] Last Admin: 08/29/20 11:34 Dose: Not Given Documented by: Insulin Human Lispro (Insulin Lispro 100 Unit/Ml Insuln.Pen) 0 unit SC ACHS [facility]; Protocol Last Admin: 08/29/20 11:35 Dose: Not Given Documented by: Melatonin (Melatonin 3 Mg Tablet) 3 mg PO QHS PRN PRN PRN Reason: INSOMNIA Metoprolol Tartrate (Metoprolol Tartrate 50 Mg Tablet) 50 mg PO BID [facility] Last Admin: 08/28/20 20:46 Dose: 50 mg Documented by: Nicotine (Nicotine 21 Mg Patch) 21 mg TRANSDERM. DAILY [facility] Last Admin: 08/28/20 10:15 Dose: 21 mg Documented by: Nitroglycerin (Nitroglycerin (Inpatient Use) 0.4 Mg Tab.Subl) 0.4 mg SUBLINGUAL Q5M PRN PRN Reason: CARDIAC/CHEST PAIN Ondansetron HCl (Ondansetron 4 Mg/2 Ml Vial) 4 mg IV Q8H PRN PRN PRN Reason: NAUSEA/VOMITING Last Admin: 08/28/20 12:45 Dose: 4 mg Documented by: Prochlorperazine Edisylate (Prochlorperazine 10 Mg/2 Ml Vial) 5 mg IV Q4H PRN PRN PRN Reason: Breakthrough Nausea/Vomiting Last Admin: 08/28/20 17:20 Dose: 5 mg Documented by: Psyllium Hydrophilic Mucilloid (Psyllium 1 Packet) 1 packet PO DAILY PRN PRN PRN Reason: Constipation Senna/Docusate Sodium (Senna/Docusate Sodium 1 Tablet) 2 tablet PO BID PRN PRN PRN Reason: Constipation Sodium Chloride (0.9% Saline Lock 10 Ml Syringe) 10 - 40 ml IV UD PRN PRN Reason: SALINE FLUSH Last Admin: 08/28/20 17:20 Dose: 10 ml Documented by: Throat Lozenges (Benzocaine/Menthol 1 Lozenge) 1 lozenge MUCOUS MEM Q2H PRN PRN PRN Reason: SORE THROAT Medical Necessity - Tobacco Use Smoking Status: Current every day smoker Tobacco Use: Cigarettes Assessment/Plan All Active Problems (Last Reviewed 11/19/19 @ 10:29 by Radha BHARDWAJ, PA) Anemia (Acute) Hypocalcemia (Acute) Diabetic nephropathy, type I (Acute) Chest pain (Acute) S/P PTCA (percutaneous transluminal coronary angioplasty) (Acute) Diabetes (Acute) Hypotension (Acute) Renal insufficiency (Acute) Hyperkalemia (Acute) NSTEMI (non-ST elevated myocardial infarction) (Resolved 01/12/18) DKA (diabetic ketoacidoses) (Resolved) Intractable nausea and vomiting (Resolved) Ketoacidosis (Resolved) 1. Chest pain-troponins mildly elevated. EKG without ST-T changes. Patient underwent nuclear stress test, report pending. Continue aspirin, statin, Plavix, metoprolol. 2. Type 1 diabetes mellitus with DKA-DKA resolved. Patient previously on insulin pump which is suspected to be nonfunctioning. Continue Lantus and sliding scale regimen. Outpatient follow-up. 3. Hypotension, secondary to #2-resolved. 4. Falsely low thrombocytopenia-platelets this morning 49. Lab repeated and platelets 148. 5. Acute kidney injury on chronic kidney disease stage IV with hyperkalemia- hyperkalemia resolved. Nephrology following. UMA improved. 6. CAD with history of stents-continue aspirin, statin, Plavix, metoprolol. 7. Hypertension-stable, continue losartan, metoprolol. 8. Hyperlipidemia-continue statin. 9. Chronic COPD-as needed inhaler regimen. 10. Anemia of chronic disease-stable. 11. Tobacco dependence-encourage cessation. DVT prophylaxis-heparin subcu This patient was seen by ELLIE Block under the supervision of Dr. Nicholas.
[2020-08-29] MEDS: Metoprolol Tartrate 50 MG Tablet PO (14:27)
[2020-08-29 14:30] LABS: Pathologist Review Reviewed
--- NOTE | 2020-08-29 14:49 | STRESSREP ---
Stress Test Report Pharmacologic myocardial perfusion stress test. 59-year-old lady with a history of chest pain. Stress protocol: Resting EKG demonstrates normal sinus rhythm with a rate of 75 bpm normal intervals, and septal Q waves noted. The resting blood pressure is 142/70 mmHg. 0.4 mg of regadenoson was infused per usual protocol followed by rapid intravenous saline flush injection. Continuous EKG monitoring was performed. The maximum heart rate attained was 85 bpm which was 53% of max impacted heart rate the maximum workload was 1 metabolic equivalent. At rest there were no ST or T wave changes were noted with no evidence of ischemia. At peak infusion nonspecific ST-T wave changes were noted. Myocardial perfusion protocol. 12.0 mCi of technetium 99m sestamibi was injected at rest. 0.4 mg of regadenoson was infused per usual protocol. At peak infusion 36.0 mCi of technetium 99m sestamibi was injected stress images were obtained stress and rest images were reconstructed and compared in the short axis vertical long horizontal long axis. Gated images were also obtained Perfusion SPECT analysis: Review of the stress images demonstrate normal perfusion noted in the anterior wall lateral wall and inferior wall. There is a defect noted in the septal wall. This is present on the stress and resting images to a similar extent suggestive of a previous septal infarct. Gated SPECT analysis: The gated ejection fraction is 81%. 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 No ischemia noted. Preserved ejection fraction.
--- NOTE | 2020-08-29 15:39 | DCINST_ITS ---
- Discharge Diagnoses Current Active Problems: Current Active and Chronic Problems (Last Reviewed 11/19/19 @ 10:29 by Radha BHARDWAJ, PA) Chest pain (Acute) Chronic obstructive pulmonary disease (Chronic) S/P PTCA (percutaneous transluminal coronary angioplasty) (Acute) Diabetes (Acute) Hypotension (Acute) Renal insufficiency (Acute) Hyperkalemia (Acute) Atherosclerosis of coronary artery of eek heart without angina pectoris (Chronic) PCI-MIESHA-Mid RCA w/ 2.5 x 28 mm Promus Synergy 01/15/2018; PCI-MIESHA-Mid LCx w/ 3.0 x 16 mm Promus Synergy 02/04/2018 History of coronary artery stent placement (Chronic 02/04/18) PCI-MIESHA-Mid RCA w/ 2.5 x 28 mm Promus Synergy 01/15/2018; PCI-MIESHA-Mid LCx w/ 3.0 x 16mm Promus Synergy 02/04/2018 Essential (primary) hypertension (Chronic) Hyperlipidemia (Chronic) Nicotine dependence (Chronic) You will use the following diet at home:: Calorie/Carbohydrate Controlled (specify 1200, 1400, etc), Cardiac Discharge Activity: Return to Normal Activity Call your doctor if you observe: Fever of 101 or Higher, Shortness of breath, Dizziness, Fainting spells, Chest pain Allergies/Adverse Reactions: Allergies No Known Allergies Allergy (Verified 08/26/20 20:18) Medications to take at Discharge Albuterol IH (ProAir) [Proair Hfa] 2 puff INHALATION Q6H PRN PRN 06/21/18 Ergocalciferol [Vitamin D] 50,000 unit PO Q7D 06/21/18 Gabapentin [Neurontin] 300 mg PO QHS 06/21/18 Simvastatin [Zocor] 40 mg PO QHS 06/21/18 Tiotropium [place] [Spiriva] 18 mcg IH DAILY 06/21/18 Albuterol Aerosols [Ventolin Aerosols] 2.5 mg INHALATION Q2H PRN PRN #1 box 06/23/18 metoprolol tartrate 50 mg tablet 50 mg PO BID #180 tab 11/19/19 nitroglycerin 0.4 mg sublingual tablet 0.4 mg SUBLINGUAL Q5-15M PRN #25 tab 11/19/19 aspirin 81 mg tablet,delayed release 81 mg PO DAILY 02/28/20 clopidogrel 75 mg tablet 75 mg PO DAILY #90 tab 12/31/19 Insulin Glargine [Lantus SoloStar Pen] 10 units SC DAILY #1 box 08/29/20 Insulin Lispro [Humalog KwikPen] See Protocol MS ACHS #1 box 08/29/20 Pen Needle, Diabetic [Pen Gaylord] 1 ea ACHS #1 box 08/29/20 The following prescriptions were given: Insulin Lispro [Humalog KwikPen] See Protocol MS ACHS #1 box Transmission Status: Pending to [facility] Insulin Glargine [Lantus SoloStar Pen] 10 units SC DAILY #1 box Transmission Status: Pending to [facility] Pen Needle, Diabetic [Pen Gaylord] 1 ea ACHS #1 box Transmission Status: Pending to [facility] Primary Care Physician: Sin Lujan MD [Primary Care Provider] - Please follow up with your Primary Care Physician in: 1 Week Test Results: Test results from this visit will be discussed in further detail at your follow- up appointment, if applicable. Please Follow Up With: Christy Huerta DO When: 1-2 Weeks Please Follow Up With: Viraj No MD When: 1-2 Weeks Please Follow Up With: Radha Sandhu, PA When: 2 Weeks Please Follow Up With: Rios Cordova MD When: 1-2 Weeks Proposed Discharge Date: 08/29/20
--- NOTE | 2020-08-29 15:44 | PCM.DC.SUM ---
<Alanna Watson [employer] - Last Filed: 08/29/20 15:52> Discharge Date and Diagnosis - Problem List Patient Problems: Active and Suspected Problems (Last Reviewed 11/19/19 @ 10:29 by Radha BHARDWAJ, PA) Chest pain (Acute) S/P PTCA (percutaneous transluminal coronary angioplasty) (Acute) Diabetes (Acute) Hypotension (Acute) Renal insufficiency (Acute) Hyperkalemia (Acute) Date of Admission: 08/26/20 Date of Discharge: 08/29/20 - Primary Discharge Diagnosis Acute Problems: Active Problems (Last Reviewed 11/19/19 @ 10:29 by Radha BHARDWAJ, PA) 1. Atypical chest pain, ACS ruled out 2. Type 1 diabetes mellitus with DKA 3. Hypotension, secondary to #2 4. Falsely low thrombocytopenia 5. Acute kidney injury on chronic kidney disease stage IV with hyperkalemia 6. CAD with history of stents 7. Hypertension 8. Hyperlipidemia 9. Chronic COPD 10. Anemia of chronic disease 11. Tobacco dependence - Secondary Discharge Diagnosis Chronic Problems: Chronic Problems (Last Reviewed 11/19/19 @ 10:29 by Radha BHARDWAJ, PA) Chronic obstructive pulmonary disease (Chronic) Dizziness (Chronic) Intermittent palpitations (Chronic) Atherosclerosis of coronary artery of [place] heart without angina pectoris (Chronic) PCI-MIESHA-Mid RCA w/ 2.5 x 28 mm Promus Synergy 01/15/2018; PCI-MIESHA-Mid LCx w/ 3.0 x 16 mm Promus Synergy 02/04/2018 History of coronary artery stent placement (Chronic 02/04/18) PCI-MIESHA-Mid RCA w/ 2.5 x 28 mm Promus Synergy 01/15/2018; PCI-MIESHA-Mid LCx w/ 3.0 x 16mm Promus Synergy 02/04/2018 Essential (primary) hypertension (Chronic) Hyperlipidemia (Chronic) Nicotine dependence (Chronic) Hospital Course and Treatment Imaging Results: Diagnostic Data Chest X-Ray 08/28/20 21:37 IMPRESSION: Small right pleural effusion with right basilar infiltrate and/or atelectasis. at 2257 Reported and signed by: Marylu Galloway MD Electronically Signed: Marylu Galloway MD at 22:56 EDT Tel , Service support , Dr. Alva- pulmonary medicine Dr. Bobby- Cardiology Dr. Huerta- nephrology Operations: None Procedures: 2-D Echocardiogram, Stress test Summary of Care Provided: The patient is a 59 year old F admitted 08/26/2020 due to chest pain and nausea. 1. Chest pain-troponins mildly elevated. EKG without ST-T changes. Patient underwent nuclear stress test which was negative for ischemia, gated ejection fraction 81%, evidence of previous septal infarct. Continue aspirin, statin, Plavix, metoprolol. Follow-up with cardiology in 1 to 2 weeks. 2. Type 1 diabetes mellitus with DKA-DKA resolved. Patient previously on insulin pump which is suspected to be nonfunctioning. Continue current Lantus and sliding scale insulin regimen. Follow-up with endocrinology in 1 to 2 weeks. 3. Hypotension, secondary to #2-resolved. 4. Falsely low thrombocytopenia-platelets 08/29/2020 49. Lab repeated and platelets 148. 5. Acute kidney injury on chronic kidney disease stage IV with hyperkalemia- hyperkalemia resolved. Nephrology consulted during mission. UMA improved. Follow-up with Dr. Huerta in 1 to 2 weeks. 6. CAD with history of stents-continue aspirin, statin, Plavix, metoprolol. 7. Hypertension-stable, continue metoprolol. Losartan discontinued due to worsening renal function. 8. Hyperlipidemia-continue statin. 9. Chronic COPD with suspected mild chronic hypoxia-as needed inhaler regimen. Ambulatory pulse ox completed prior to discharge and room air oxygen with ambulation noted to be 86%. O2 94% with 1 L with ambulation. Continue supplement oxygen to maintain O2 above 90%. She is ambulatory in the home. Chest x-ray during admission with atelectasis. Patient has chronic cough. She has seen pulmonary medicine in the past. Recommend follow-up with Dr. Cordova in 1 to 2 weeks. 10. Anemia of chronic disease-stable. 11. Tobacco dependence-encourage cessation. General: Alert, Oriented x3, Cooperative HEENT: Atraumatic, PERRLA, EOMI, Normocephalic Neck: Supple, No JVD, Negative Carotid Bruits Lungs: Clear to auscultation, Normal air movement Cardiovascular: Regular rate, No murmurs Abdomen: Bowel Sounds Present, Soft, Non Tender Extremities: No clubbing, No cyanosis, No edema, Capillary Refill Less than 3 Seconds Skin: No rashes, No breakdown Musculoskeletal: No Tenderness to Palpation of Joints or Extremities Neurological: Cranial nerves II-XII grossly intact, Neuro grossly intact Psych/Mental Status: Normal Affect, Appropriate Patient seen and examined prior to discharge. Physical assessment as noted above. Patient is stable for discharge with follow up recommendations as noted above. This patient was seen by ELLIE Block under the supervision of Dr. Nicholas. Patient Problems: Active and Suspected Problems (Last Reviewed 11/19/19 @ 10:29 by Radha BHARDWAJ, PA) Chest pain (Acute) S/P PTCA (percutaneous transluminal coronary angioplasty) (Acute) Diabetes (Acute) Hypotension (Acute) Renal insufficiency (Acute) Hyperkalemia (Acute) - Physical Exam Vitals/I&O's: Vital Signs Temp Pulse Resp BP Pulse Ox 97.9 F 83 18 148/70 H 90 08/29/20 14:22 08/29/20 14:27 08/29/20 14:22 08/29/20 14:22 08/29/20 14:38 Oxygen Flow Rate (L/min) [ 1 AMBULATION with Oxygen] Oxygen Flow Rate (L/min) 1 Oxygen Delivery Method Nasal Cannula Weight: 120 lb 5.958 oz Body Mass Index (BMI) 17.4 Finger Stick Blood Glucose 210 Intake and Output for Last 24 Hours 08/27/20 08/28/20 08/29/20 23:59 23:59 23:59 Intake Total 8017.32 / 8017.32 2823.00 / 2823.00 650 / 650 Output Total 0 / 0 1000 / 1000 1150 / 1150 Balance 8017.32 / 8017.32 1823.00 / 1823.00 -500 / -500 Microbiology Past 72 Hours 08/27/20 05:25 Mucosa - Nasopharyngeal Respiratory Panel (PCR) - Final Laboratory Results 08/28/20 17:16: POC Glucose 193 H 08/28/20 20:45: POC Glucose 157 H 08/29/20 06:05: Sodium 142, Potassium 4.8, Chloride 118 H, Carbon Dioxide 18.0 L, BUN 47 H, Creatinine 2.77 H, Estim Creat Clear Calc 18.62, Est GFR (MDRD) Af Amer 22 L, Est GFR (MDRD) Non-Af 19 L, BUN/Creatinine Ratio 17.0, Glucose 163 H, Calcium 7.7 L, Phosphorus 4.0, Iron 75, Ferritin 85, Albumin 2.3 L 08/29/20 06:05: WBC 7.7, RBC 3.00 L, Hgb 9.0 L, Hct 29.6 L, MCV 98.7, MCH 30.0, MCHC 30.4 L, RDW Std Deviation 50.0 H, RDW Coeff of Iron 13.8, Plt Count 49 L*, MPV 10.2, Immature Gran % (Auto) 0.400, Neut % (Auto) 67.6, Lymph % (Auto) 23.6, Daggett % (Auto) 6.7, Eos % (Auto) 1.6, Baso % (Auto) 0.1, Absolute Neuts (auto) 5.2, Absolute Lymphs (auto) 1.82, Nucleated RBC % 0, Diff Path Review Reviewed, Platelet Estimate MKD DEC, Polychromasia RARE, Hypochromasia 1+ 08/29/20 06:44: POC Glucose 139 H 08/29/20 10:26: POC Glucose 269 H 08/29/20 10:56: WBC 7.8, RBC 3.37 L, Hgb 10.0 L, Hct 32.5 L, MCV 96.4, MCH 29.7, MCHC 30.8 L, RDW Std Deviation 49.0 H, RDW Coeff of Iron 13.9, Plt Count 148 L, MPV 10.4 Current Medications Acetaminophen (Acetaminophen 325 Mg Tablet) 650 mg PO Q6H PRN PRN PRN Reason: Pain Score 1-10/Temp > 100.7 F Al Hydroxide/Mg Hydroxide (Mag Hydrox/Al Hydrox/Simeth 30 Ml Udc) 30 ml PO Q6H PRN PRN PRN Reason: Gastric Burning Albuterol Sulfate (Albuterol 2.5 Mg/3 Ml Vial.Neb.) 2.5 mg INHALATION Q2H PRN PRN PRN Reason: Dyspnea, wheezing Last Admin: 08/26/20 22:14 Dose: 2.5 mg Documented by: Albuterol/Ipratropium (Ipratropium/Albuterol Sulfate 3 Ml Ampul.Neb) 3 ml INHALATION Q6HWA.RT [facility] Last Admin: 08/29/20 06:55 Dose: 3 ml Documented by: Aspirin (Aspirin E.C. 81 Mg Tablet) 81 mg PO DAILY [facility] Last Admin: 08/29/20 11:34 Dose: Not Given Documented by: Atorvastatin Calcium (Atorvastatin Calcium 20 Mg Tablet) 20 mg PO QHS [facility] Last Admin: 08/28/20 20:46 Dose: 20 mg Documented by: Clopidogrel Bisulfate (Clopidogrel Bisulfate 75 Mg Tablet) 75 mg PO DAILY [facility] Last Admin: 08/29/20 11:34 Dose: Not Given Documented by: Dextrose (Dextrose 50%-Water 25 Gm/50 Ml Disp.Syrin) 0 gm IV X1 PRN; Protocol PRN Reason: Hypoglycemia Protocol Last Admin: 08/28/20 02:05 Dose: 25 gm Documented by: Gabapentin (Gabapentin 300 Mg Capsule) 300 mg PO QHS [facility] Last Admin: 08/28/20 20:47 Dose: 300 mg Documented by: Guaifenesin (Guaifenesin 10 Ml Udc (200mg/10ml)) 20 ml PO Q4H PRN PRN PRN Reason: COUGH Insulin Glargine (Insulin Glargine 100 Units/Ml Pen) 10 units SC DAILY [facility] Last Admin: 08/29/20 11:34 Dose: Not Given Documented by: Insulin Human Lispro (Insulin Lispro 100 Unit/Ml Insuln.Pen) 0 unit SC ACHS [facility]; Protocol Last Admin: 08/29/20 11:35 Dose: Not Given Documented by: Melatonin (Melatonin 3 Mg Tablet) 3 mg PO QHS PRN PRN PRN Reason: INSOMNIA Metoprolol Tartrate (Metoprolol Tartrate 50 Mg Tablet) 50 mg PO BID [facility] Last Admin: 08/29/20 14:27 Dose: 50 mg Documented by: Nicotine (Nicotine 21 Mg Patch) 21 mg TRANSDERM. DAILY [facility] Last Admin: 08/29/20 14:27 Dose: 21 mg Documented by: Nitroglycerin (Nitroglycerin (Inpatient Use) 0.4 Mg Tab.Subl) 0.4 mg SUBLINGUAL Q5M PRN PRN Reason: CARDIAC/CHEST PAIN Ondansetron HCl (Ondansetron 4 Mg/2 Ml Vial) 4 mg IV Q8H PRN PRN PRN Reason: NAUSEA/VOMITING Last Admin: 08/28/20 12:45 Dose: 4 mg Documented by: Prochlorperazine Edisylate (Prochlorperazine 10 Mg/2 Ml Vial) 5 mg IV Q4H PRN PRN PRN Reason: Breakthrough Nausea/Vomiting Last Admin: 08/28/20 17:20 Dose: 5 mg Documented by: Psyllium Hydrophilic Mucilloid (Psyllium 1 Packet) 1 packet PO DAILY PRN PRN PRN Reason: Constipation Senna/Docusate Sodium (Senna/Docusate Sodium 1 Tablet) 2 tablet PO BID PRN PRN PRN Reason: Constipation Sodium Chloride (0.9% Saline Lock 10 Ml Syringe) 10 - 40 ml IV UD PRN PRN Reason: SALINE FLUSH Last Admin: 08/28/20 17:20 Dose: 10 ml Documented by: Throat Lozenges (Benzocaine/Menthol 1 Lozenge) 1 lozenge MUCOUS MEM Q2H PRN PRN PRN Reason: SORE THROAT Discharge Diet: Low fat/ Low Cholesterol, Carb Control Diet Discharge Activity: Return to Normal Activity Call your doctor if you observe: Fever of 101 or Higher, Shortness of breath, Dizziness, Fainting spells, Chest pain Home Medications: Medications to take at Discharge Albuterol IH (ProAir) [Proair Hfa] 2 puff INHALATION Q6H PRN PRN 06/21/18 Ergocalciferol [Vitamin D] 50,000 unit PO Q7D 06/21/18 Gabapentin [Neurontin] 300 mg PO QHS 06/21/18 Simvastatin [Zocor] 40 mg PO QHS 06/21/18 Tiotropium Marina [Spiriva] 18 mcg IH DAILY 06/21/18 Albuterol Aerosols [Ventolin Aerosols] 2.5 mg INHALATION Q2H PRN PRN #1 box 06/23/18 metoprolol tartrate 50 mg tablet 50 mg PO BID #180 tab 11/19/19 nitroglycerin 0.4 mg sublingual tablet 0.4 mg SUBLINGUAL Q5-15M PRN #25 tab 11/19/19 aspirin 81 mg tablet,delayed release 81 mg PO DAILY 12/31/19 clopidogrel 75 mg tablet 75 mg PO DAILY #90 tab 12/31/19 Insulin Glargine [Lantus SoloStar Pen] 10 units SC DAILY #1 box 08/29/20 Insulin Lispro [Humalog KwikPen] See Protocol SC ACHS #1 box 08/29/20 Pen Needle, Diabetic [Pen [place]] 1 ea ACHS #1 box 08/29/20 Following Prescriptions Were Given to Patient: Insulin Lispro [Humalog KwikPen] See Protocol SC ACHS #1 box Transmission Status: Received by [facility] Insulin Glargine [Lantus SoloStar Pen] 10 units SC DAILY #1 box Transmission Status: Received by [facility] Pen Needle, Diabetic [Pen [place]] 1 ea ACHS #1 box Transmission Status: Received by [facility] Primary Care Physician: Sin Lujan MD [Primary Care Provider] - Please follow up with your Primary Care Physician in: 1 Week Please Follow Up With: Christy Huerta DO When: 1-2 Weeks Please Follow Up With: Viraj No MD When: 1-2 Weeks Please Follow Up With: Radha Sandhu, PA When: 2 Weeks Disposition: Home Minutes spent on discharge:: 35 Patient Condition:: Stable Medical Necessity - Tobacco Use Smoking Status: Current every day smoker Tobacco Use: Cigarettes Meaningful Use Info Meaningful Use Diagnoses (Choose all that apply): None applicable <Favian Nicholas - Last Filed: 08/29/20 16:44> Discharge Date and Diagnosis - Primary Discharge Diagnosis Acute Problems: Active Problems (Last Reviewed 11/19/19 @ 10:29 by Radha BHARDWAJ, PA) Chest pain (Acute) S/P PTCA (percutaneous transluminal coronary angioplasty) (Acute) Diabetes (Acute) Hypotension (Acute) Renal insufficiency (Acute) Hyperkalemia (Acute) - Secondary Discharge Diagnosis Chronic Problems: Chronic Problems (Last Reviewed 11/19/19 @ 10:29 by Radha BHARDWAJ, PA) Chronic obstructive pulmonary disease (Chronic) Dizziness (Chronic) Intermittent palpitations (Chronic) Atherosclerosis of coronary artery of [place] heart without angina pectoris (Chronic) PCI-MIESHA-Mid RCA w/ 2.5 x 28 mm Promus Synergy 01/15/2018; PCI-MIESHA-Mid LCx w/ 3.0 x 16 mm Promus Synergy 02/04/2018 History of coronary artery stent placement (Chronic 02/04/18) PCI-MIESHA-Mid RCA w/ 2.5 x 28 mm Promus NeuroNascent 01/15/2018; PCI-MIESHA-Mid LCx w/ 3.0 x 16mm Blaze.ious NeuroNascent 02/04/2018 Essential (primary) hypertension (Chronic) Hyperlipidemia (Chronic) Nicotine dependence (Chronic) Hospital Course and Treatment Operations: None Procedures: 2-D Echocardiogram, Stress test Summary of Care Provided: Patient seen and examined independently. Data reviewed. I agree with the above note by the nurse practitioner. The patient is a 59 year old F presents with chest pain. Did have mild elevation in troponins. Patient underwent stress test that was unremarkable. Continue with medical management. Patient also developed diabetic ketoacidosis. This is presumed to be due to a nonfunctioning insulin pump. Patient was started on insulin glargine and sliding scale and blood sugars have remained stable. Patient is type I diabetic. Patient did have a transient drop in her platelets but this is felt to be due to lab error as subsequent labs showed normalization. She also had acute kidney injury which improved with IV fluids. Patient was seen by nephrology. [] - Physical Exam Vitals/I&O's: Vital Signs Temp Pulse Resp BP Pulse Ox 36.6 C 83 18 148/70 H 90 08/29/20 14:22 08/29/20 14:27 08/29/20 14:22 08/29/20 14:22 08/29/20 14:38 Oxygen Flow Rate (L/min) [ 1 AMBULATION with Oxygen] Oxygen Flow Rate (L/min) 1 Oxygen Delivery Method Nasal Cannula Weight: 54.6 kg Body Mass Index (BMI) 17.4 Finger Stick Blood Glucose 210 Intake and Output for Last 24 Hours 08/27/20 08/28/20 08/29/20 23:59 23:59 23:59 Intake Total 8017.32 / 8017.32 2823.00 / 2823.00 650 / 650 Output Total 0 / 0 1000 / 1000 1150 / 1150 Balance 8017.32 / 8017.32 1823.00 / 1823.00 -500 / -500 General: Alert, No apparent distress HEENT: Atraumatic, Normocephalic Neck: No Nodes, Thyroid Normal Size and Texture Lungs: Clear to auscultation, Normal air movement, No rhonchi, No wheeze Cardiovascular: Regular rate, Regular Rhythm, Normal S1, Normal S2 Abdomen: Bowel Sounds Present, Soft, Non Tender, Non-Distended Extremities: No edema, No Calf Tenderness Microbiology Past 72 Hours 08/27/20 05:25 Mucosa - Nasopharyngeal Respiratory Panel (PCR) - Final Laboratory Results 08/28/20 17:16: POC Glucose 193 H 08/28/20 20:45: POC Glucose 157 H 08/29/20 06:05: Sodium 142, Potassium 4.8, Chloride 118 H, Carbon Dioxide 18.0 L, BUN 47 H, Creatinine 2.77 H, Estim Creat Clear Calc 18.62, Est GFR (MDRD) Af Amer 22 L, Est GFR (MDRD) Non-Af 19 L, BUN/Creatinine Ratio 17.0, Glucose 163 H, Calcium 7.7 L, Phosphorus 4.0, Iron 75, Ferritin 85, Albumin 2.3 L 08/29/20 06:05: WBC 7.7, RBC 3.00 L, Hgb 9.0 L, Hct 29.6 L, MCV 98.7, MCH 30.0, MCHC 30.4 L, RDW Std Deviation 50.0 H, RDW Coeff of Iron 13.8, Plt Count 49 L*, MPV 10.2, Immature Gran % (Auto) 0.400, Neut % (Auto) 67.6, Lymph % (Auto) 23.6, Daggett % (Auto) 6.7, Eos % (Auto) 1.6, Baso % (Auto) 0.1, Absolute Neuts (auto) 5.2, Absolute Lymphs (auto) 1.82, Nucleated RBC % 0, Diff Path Review Reviewed, Platelet Estimate MKD DEC, Polychromasia RARE, Hypochromasia 1+ 08/29/20 06:44: POC Glucose 139 H 08/29/20 10:26: POC Glucose 269 H 08/29/20 10:56: WBC 7.8, RBC 3.37 L, Hgb 10.0 L, Hct 32.5 L, MCV 96.4, MCH 29.7, MCHC 30.8 L, RDW Std Deviation 49.0 H, RDW Coeff of Iron 13.9, Plt Count 148 L, MPV 10.4 08/29/20 16:08: POC Glucose 329 H Current Medications Acetaminophen (Acetaminophen 325 Mg Tablet) 650 mg PO Q6H PRN PRN PRN Reason: Pain Score 1-10/Temp > 100.7 F Al Hydroxide/Mg Hydroxide (Mag Hydrox/Al Hydrox/Simeth 30 Ml Udc) 30 ml PO Q6H PRN PRN PRN Reason: Gastric Burning Albuterol Sulfate (Albuterol 2.5 Mg/3 Ml Vial.Neb.) 2.5 mg INHALATION Q2H PRN PRN PRN Reason: Dyspnea, wheezing Last Admin: 08/26/20 22:14 Dose: 2.5 mg Documented by: Albuterol/Ipratropium (Ipratropium/Albuterol Sulfate 3 Ml Ampul.Neb) 3 ml INHALATION Q6HWA.RT [facility] Last Admin: 08/29/20 06:55 Dose: 3 ml Documented by: Aspirin (Aspirin E.C. 81 Mg Tablet) 81 mg PO DAILY [facility] Last Admin: 08/29/20 11:34 Dose: Not Given Documented by: Atorvastatin Calcium (Atorvastatin Calcium 20 Mg Tablet) 20 mg PO QHS [facility] Last Admin: 08/28/20 20:46 Dose: 20 mg Documented by: Clopidogrel Bisulfate (Clopidogrel Bisulfate 75 Mg Tablet) 75 mg PO DAILY [facility] Last Admin: 08/29/20 11:34 Dose: Not Given Documented by: Dextrose (Dextrose 50%-Water 25 Gm/50 Ml Disp.Syrin) 0 gm IV X1 PRN; Protocol PRN Reason: Hypoglycemia Protocol Last Admin: 08/28/20 02:05 Dose: 25 gm Documented by: Gabapentin (Gabapentin 300 Mg Capsule) 300 mg PO QHS [facility] Last Admin: 08/28/20 20:47 Dose: 300 mg Documented by: Guaifenesin (Guaifenesin 10 Ml Udc (200mg/10ml)) 20 ml PO Q4H PRN PRN PRN Reason: COUGH Insulin Glargine (Insulin Glargine 100 Units/Ml Pen) 10 units SC DAILY [facility] Last Admin: 08/29/20 11:34 Dose: Not Given Documented by: Insulin Human Lispro (Insulin Lispro 100 Unit/Ml Insuln.Pen) 0 unit SC ACHS [facility]; Protocol Last Admin: 08/29/20 16:29 Dose: 5 u Documented by: Melatonin (Melatonin 3 Mg Tablet) 3 mg PO QHS PRN PRN PRN Reason: INSOMNIA Metoprolol Tartrate (Metoprolol Tartrate 50 Mg Tablet) 50 mg PO BID [facility] Last Admin: 08/29/20 14:27 Dose: 50 mg Documented by: Nicotine (Nicotine 21 Mg Patch) 21 mg TRANSDERM. DAILY [facility] Last Admin: 08/29/20 14:27 Dose: 21 mg Documented by: Nitroglycerin (Nitroglycerin (Inpatient Use) 0.4 Mg Tab.Subl) 0.4 mg SUBLINGUAL Q5M PRN PRN Reason: CARDIAC/CHEST PAIN Ondansetron HCl (Ondansetron 4 Mg/2 Ml Vial) 4 mg IV Q8H PRN PRN PRN Reason: NAUSEA/VOMITING Last Admin: 08/28/20 12:45 Dose: 4 mg Documented by: Prochlorperazine Edisylate (Prochlorperazine 10 Mg/2 Ml Vial) 5 mg IV Q4H PRN PRN PRN Reason: Breakthrough Nausea/Vomiting Last Admin: 08/28/20 17:20 Dose: 5 mg Documented by: Psyllium Hydrophilic Mucilloid (Psyllium 1 Packet) 1 packet PO DAILY PRN PRN PRN Reason: Constipation Senna/Docusate Sodium (Senna/Docusate Sodium 1 Tablet) 2 tablet PO BID PRN PRN PRN Reason: Constipation Sodium Chloride (0.9% Saline Lock 10 Ml Syringe) 10 - 40 ml IV UD PRN PRN Reason: SALINE FLUSH Last Admin: 08/28/20 17:20 Dose: 10 ml Documented by: Throat Lozenges (Benzocaine/Menthol 1 Lozenge) 1 lozenge MUCOUS MEM Q2H PRN PRN PRN Reason: SORE THROAT Discharge Diet: Low fat/ Low Cholesterol, Carb Control Diet Discharge Activity: Return to Normal Activity Call your doctor if you observe: Fever of 101 or Higher, Shortness of breath, Dizziness, Fainting spells, Chest pain Disposition: Home Minutes spent on discharge:: 35 Patient Condition:: Stable Medical Necessity - Tobacco Use Smoking Status: Current every day smoker Tobacco Use: Cigarettes Meaningful Use Info Meaningful Use Diagnoses (Choose all that apply): None applicable Inpatient E&M: 66052 Disch Hosp
--- NOTE | 2020-08-29 15:46 | CASEMGMT ---
Pt does qualify for 1liter home oxygen with exertion at this time. This RN CM to room to discuss discharge planning with pt at this time. Pt states no preference for DME company at this time and declines need for any further therapy at this time. Pt aware that if she gets home and feels the need for OP therapy then her PCP can order at that time, voices understanding. [place] [facility] [place] at this time and call to Nora to notify of referral at this time. Pt voices no further questions/concerns/needs at this time. [place]en BO NICHOLSON
[2020-08-29 16:26] LABS: Bedside Glucose 329 mg/dL (70-110)
[2020-08-29] MEDS: Insulin Lispro 100 UNIT/ML INSULN.PEN SC (16:29)
[2020-08-29] MEDS: Albuterol 2.5 MG/3 ML VIAL.NEB. INHALATION (16:42)
--- NOTE | 2020-08-31 13:25 | CASEMGMT ---
RN CM Discharge F/U Phone Call LACE: 11 Strata: 3 Discharge date: 08/29/2020 Call date: 08/31/2020 Call time: [phone] Attempted to reach pt without success at this time, message left for pt to call this RN CM back if/when able. S[place]en RN CM Admission dx: CP, UMA, Hypotension
== END 2020-08-29 19:13 | disposition home or self-care (01) | DRG 313 ==
LOC: ED 18:57 → PCU 08-27 07:15 → ICU 08-28 07:08 → PCU 08-28 15:35
PROVIDERS: Hospitalist; Internal Medicine; Internal Medicine Nephrology; Admitting Provider Family Medicine; Emergency Provider Emergency Medicine; PCP Family Medicine
DX: R07.89 Other chest pain (principal); E10.10 Type 1 diabetes mellitus with ketoacidosis without coma; N18.4 Chronic kidney disease, stage 4 (severe); N17.9 Acute kidney failure, unspecified; I25.10 Atherosclerotic heart disease of native coronary artery without angina pectoris; I25.2 Old myocardial infarction; I12.9 Hypertensive chronic kidney disease with stage 1 through stage 4 chronic kidney disease, or unspecified chronic kidney disease; I95.89 Other hypotension; E10.22 Type 1 diabetes mellitus with diabetic chronic kidney disease; E10.40 Type 1 diabetes mellitus with diabetic neuropathy, unspecified; E10.21 Type 1 diabetes mellitus with diabetic nephropathy; J44.9 Chronic obstructive pulmonary disease, unspecified; D63.1 Anemia in chronic kidney disease; F17.210 Nicotine dependence, cigarettes, uncomplicated; Z95.5 Presence of coronary angioplasty implant and graft; E78.00 Pure hypercholesterolemia, unspecified; E87.5 Hyperkalemia; R25.1 Tremor, unspecified; Z23 Encounter for immunization; Z79.82 Long term (current) use of aspirin; Z79.02 Long term (current) use of antithrombotics/antiplatelets; Z79.4 Long term (current) use of insulin; Z96.41 Presence of insulin pump (external) (internal); Z79.899 Other long term (current) drug therapy
CPT/HCPCS: 36415; 36600; 71045; 78452; 80048; 80053; 80061; 80069; 81001; 82009; 82570; 82728; 82803; 82962; 83036; 83540; 83735; 83930; 84300; 84484; 85025; 85027; 87040; 87633; 87635; 93005; 93017; 93306; 94640; 97162; 97166; 97530; 99285; 99406; A9500; J7030; J7040; Q9957; 90686; A4216; J0610; J2405; J2785; U0002

== ENCOUNTER → 2020-09-07 09:56 | Outpatient (CLI) | payer OTHER, SELFPAY ==
[2019-12-31 10:53] VITALS: BMI 17.2
[2020-09-06 10:36] VITALS: BMI 18.1
[2020-09-07 12:19] LABS: Albumin, Serum 2.8 g/dL (3.2-5.0); BUN 17 mg/dL (7-18); BUN/Creat Ratio 11.1 RATIO (10-20); Calcium,Total 8.5 mg/dL (8.5-10.1); Chloride 102 mmol/L (98-107); Creatinine, Serum 1.53 mg/dL (0.55-1.02); EST Glomerular Filtration Rate 37 mL/min (>60); Est Glom Filt Rate - Afr Amer 44 mL/min (>60); Glucose 138 mg/dL (74-106); Phosphorus 3.3 mg/dL (2.5-4.9); Potassium 4.8 mmol/L (3.5-5.1); Sodium Level 142 mmol/L (136-145)
[2020-09-07 12:31] LABS: Protein, Urine (Random) 62.1 mg/dL (<11.9); Protein:Creat Ratio 4113 mg/g CRE (0-200)
[2020-09-07 13:36] LABS: PTHIN 133.8 pg/mL (18.4-80.1)
== END ==
PROVIDERS: PCP Family Medicine; Visit Provider Internal Medicine Nephrology
DX: E10.22 Type 1 diabetes mellitus with diabetic chronic kidney disease (principal); N18.4 Chronic kidney disease, stage 4 (severe); N25.81 Secondary hyperparathyroidism of renal origin; R33.9 Retention of urine, unspecified
CPT/HCPCS: 36415; 80069; 82570; 83970; 84156; 87086; 87088; 87186

== ENCOUNTER → 2020-09-13 10:31 | Outpatient (CLI) | payer OTHER, SELFPAY ==
[2020-09-06 10:36] VITALS: BMI 18.1
[2020-09-12 08:24] VITALS: BMI 16.7
--- NOTE | 2020-09-13 10:35 | VDUE_ITS ---
Reason For Study: Stage 4 CKD Right Arm Left Arm Right Cephalic Vein at the wrist measures Left Cephalic Vein at the wrist measures 0.05 x 0.05 cm. 0.06 x 0.06 cm. Right Cephalic Vein in the forearm measures Left Cephalic Vein in the forearm measures 0.08 x 0.08 cm. 0.05 x 0.04 cm. Right Cephalic Vein below antecub measures Left Cephalic Vein below antecub measures 0.09 x 0.10 cm. 0.06 x 0.07 cm. Right Cephalic Vein above antecub measures Left Cephalic Vein above antecub measures 0.09 x 0.09 cm. 0.06 x 0.06 cm. Right Cephalic Vein mid bicep measures 0.09 Left Cephalic Vein at mid bicep measures x 0.09 cm. 0.08 x 0.07 cm. Right Cephalic Vein at the shoulder measures Left Cephalic Vein at the shoulder measures 0.08 x 0.09 cm. 0.06 x 0.06 cm. Right Basilic Vein at the origin measures Basilic vein at origin measures 0.15 x 0.16 0.15 x 0.16 cm. cm. Right Basilic Vein mid bicep measures 0.12 x Basilic vein at bicep measures 0.17 x 0.16 0.11 cm. cm. Right Basilic Vein above antecub measures Basilic vein above antecub measures 0.16 x 0.09 x 0.09 cm. 0.16 cm. Right Brachial artery 1 measures 0.22 x 0.23 Left Brachial artery measures 0.27 x 0.29 cm cm with a velocity of 108.2 cm/sec. with a velocity of 126.2 cm/sec. Right Brachial artery 2 measures 0.15 x 0.16 Left Radial artery measures 0.12 x 0.14 cm cm with a velocity of 54.2 cm/sec. with a velocity of 70 cm/sec. Right Radial artery measures 0.14 x 0.13 cm with a velocity of 48 cm/sec. Interpretation Summary Patent and compressible bilateral upper extremity cephalic and basilic veins although significantly diminutive veins noted bilaterally Small brachial arteries bilaterally. Small radial arteries bilaterally. Ordering Physician: Christy Huerta Referring Physician: Bird Lujan MD Performed By: Maria Eugenia Jackson RVT ?
== END ==
LOC: CVS 10:34
PROVIDERS: PCP Family Medicine; Referring Provider Internal Medicine Nephrology; Visit Provider Internal Medicine Nephrology
DX: N18.4 Chronic kidney disease, stage 4 (severe) (principal)
CPT/HCPCS: 93970

== ENCOUNTER → 2020-09-15 17:48 | Outpatient (CLI) | payer OTHER, SELFPAY ==
[2020-09-12 08:24] VITALS: BMI 16.7
--- NOTE | 2020-09-15 18:03 | CT_ITS ---
STUDY: LOW DOSE CT LUNG CANCER SCREENING REASON FOR EXAM: Female, 59 years old. 45 pack-year smoking history. Current smoker. RADIATION DOSAGE (If Supplied By Facility): CTDIvol = ( 2.01 ) mGy, DLP = ( 79.77 ) mGycm TECHNIQUE: No contrast was administered. Low dose technique was utilized (average mAS-38 and kVp 120). 1.25 mm axial source images with a slice interval of 1.25-mm were reconstructed in lung windows. 2.5 mm axial source images with a slice interval of 2.5-mm were reconstructed in lung windows. 5.0 mm axial source images with a slice interval of 5.0-mm were reconstructed in soft tissue windows. Nodule measured using lung windows on PACS and/or independent workstation with automated measurement of minimum and maximum diameter. Nodule measurement reported as average diameter rounded to the nearest whole number. Growth is defined as an increase ins size of greater than 1.5 mm. COMPARISON: Chest, 08/28/2020. CTA of the chest, 03/11/2015. NODULES: Nodule #: 1 Density: Solid Lung location: Left upper lobe: Pleural-based Location in series: Series Number: 2 Image: 51 Size - D1 x D2 mm: 2 x 2 mm: 2 mm average diameter Margin: Smooth Shape: Round Calcification: Yes Fat: No Temporal comparison: Stable Nodule #: 2 Density: Solid Lung location: Left lower lobe: 0.7 cm from pleura Location in series: Series Number: 2 Image: 76 Size - D1 x D2 mm: 4 x 4 mm: 4 mm average diameter Margin: Smooth Shape: Brown Calcification: Yes Fat: No Temporal comparison: Stable Nodule #: 3 Density: Solid Lung location: Right lower lobe: 1.4 cm from pleura Location in series: Series Number: 2 Image: 140 Size - D1 x D2 mm: 3 x 3 mm: 3 mm average diameter Margin: Smooth Shape: Round Calcification: No Fat: No Temporal comparison: None Nodule #: 4 Density: Solid Lung location: Left lower lobe: 0.3 cm from pleura Location in series: Series Number: 2 Image: 165 Size - D1 x D2 mm: 3 x 3 mm: 3 mm average diameter Margin: Smooth Shape: Rounded Calcification: No Fat: No Temporal comparison: None Nodule #: 5 Density: Solid Lung location: Right lower lobe 1.1: cm from pleura Location in series: Series Number 2 Image: 187 Size - D1 x D2 mm: 2 x 2 mm: 2 mm average diameter Margin: Smooth Shape: Rounded Calcification: No Fat: No Temporal comparison: None Nodule #: 6 Density: Side Lung location: Right lower lobe: 1.4 cm from pleura Location in series: Series Number: 2 Image: 189 Size - D1 x D2 mm: 4 x 4 mm: 4 mm average diameter Margin: Smooth Shape: Round Calcification: No Fat: No Temporal comparison: None Total lung nodules (excluding granulomas): 4 Emphysema: There is diffuse emphysematous changes of lungs with stable apical pleural scarring. Endobronchial lesion: None Aorta: Normal Coronary arteries: Stable coronary artery calcifications. Heart: Normal in size Pulmonary artery: Normal Mediastinal nodes: None Other chest and abdominal findings: CT/Low Dose CT Lung Screening IMPRESSION: Lung-RADS category 2 - Continue annual screening with LDCT in 12 months. IMPORTANT NOTES FOR USE: ACR Lung-RADS Version 1.0 Assessment Categories Release Date: February 28, 2014 Category: Coded 0-4 bases on nodule(s) with highest degree of suspicion. Negative screen is defined as categories 1 and 2; a positive screen is defined as categories 3 and 4. Category 3 and 4A nodules that are unchanged on interval CT should be coded as category 2, and individuals returned to screening in 12 months. Category 4X: Category 3 or 4 nodules with additional imaging findings that increase the suspicion of lung cancer, such as spiculation, GGN that doubles in size in 1 year, enlarged lymph notes, etc. Category Modifiers: S (significant finding unrelated to lung cancer) and C (prior history of treated lung cancer) may be added to the 0-4 Lung-RADS Electronically Signed: Osmin Ceballos DO at 23:17 EST Tel [phone], Service support ,
== END ==
PROVIDERS: PCP Family Medicine; Referring Provider Nurse Practitioner Acute Care; Visit Provider Nurse Practitioner Acute Care
DX: Z12.2 Encounter for screening for malignant neoplasm of respiratory organs (principal); F17.210 Nicotine dependence, cigarettes, uncomplicated
CPT/HCPCS: G0297

== ENCOUNTER → 2020-09-29 12:18 | Outpatient (CLI) | payer OTHER, SELFPAY ==
[2020-09-12 08:24] VITALS: BMI 16.7
[2020-09-20 08:35] VITALS: BMI 16.7
[2020-09-29 12:48] VITALS: PULSE 65; PULSE 66; PULSE 67; PULSE 68; PULSE 70; PULSE 71; O2SAT 94; O2SAT 95; O2SAT 96; O2SAT 97; O2SAT 98
--- NOTE | 2020-09-29 12:52 | CPS ---
PATIENT ARRIVED FOR 6MIN WALK TEST ON ROOM AIR. (HAS O2 RECENTLY SETUP AT HOSPITAL D/C VIA [employer]) ENTIRE TESTING DONE ON ROOM AIR, 1 REST BREAK TAKEN (4TH MINUTE) BY PATIENT D/U INCREASED WOB AND OVERALL FEELING OF BEING WORN OUT.
--- NOTE | 2020-09-29 16:17 | WT_ITS ---
PSN 6 Minute Walk Test - 6 Minute Walk Test 6 Minute Walk Test: 6 Minute Walk Test PSN:6-Minute Walk Test Start: 09/29/20 12:48 Freq: Status: Active Protocol: RESP.6MINW Document 09/29/20 12:48 [facility] (Rec: 09/29/20 12:54 [facility] [id number]) 6 Minute Walk Test Date Performed 09/29/20 Time Performed 12:30 Height 5 ft 6 in Weight: 47.174 kg Weight in Pounds 104.[address]: Jeanna Davis ACCOUNT UNDERWRITER Assistive device used: None Pre-test Oxygen Delivery Method Room Air Pulse Ox (%) 95 Pulse Rate (60-100 beats/min) 65 Dyspnea James Scale (0-10) 3 Reported Symptoms Increased Work of Breathing 1st minute Oxygen Delivery Method Room Air Pulse Ox (%) 94 Pulse Rate (60-100 beats/min) 66 Dyspnea James Scale (0-10) 3 Number of Rests Taken 0 Reported Symptoms Increased Work of Breathing 2nd minute Oxygen Delivery Method Room Air Pulse Ox (%) 97 Pulse Rate (60-100 beats/min) 70 Dyspnea James Scale (0-10) 3 Number of Rests Taken 0 Reported Symptoms Increased Work of Breathing 3rd minute Oxygen Delivery Method Room Air Pulse Ox (%) 97 Pulse Rate (60-100 beats/min) 71 Dyspnea James Scale (0-10) 4 Number of Rests Taken 0 Reported Symptoms Increased Work of Breathing 4th minute Oxygen Delivery Method Room Air Pulse Ox (%) 97 Pulse Rate (60-100 beats/min) 68 Dyspnea James Scale (0-10) 4 Number of Rests Taken 1 Reported Symptoms Increased Work of Breathing 5th minute Oxygen Delivery Method Room Air Pulse Ox (%) 98 Pulse Rate (60-100 beats/min) 71 Dyspnea James Scale (0-10) 4 Number of Rests Taken 0 Reported Symptoms Increased Work of Breathing 6th minute Oxygen Delivery Method Room Air Pulse Ox (%) 96 Pulse Rate (60-100 beats/min) 68 Dyspnea James Scale (0-10) 4 Number of Rests Taken 0 Reported Symptoms Increased Work of Breathing Post-test Oxygen Delivery Method Room Air Pulse Ox (%) 97 Pulse Rate (60-100 beats/min) 67 Dyspnea James Scale (0-10) 3 Reported Symptoms Increased Work of Breathing Full Laps Walked 14 Partial Lap, Number of Tiles Walked 29 Total Distance Walked (ft) 855 09/29/20 12:52 Cardiopulmonary Services by Rita Martinez PATIENT ARRIVED FOR 6MIN WALK TEST ON ROOM AIR. (HAS O2 RECENTLY SETUP AT HOSPITAL D/C VIA [employer]) ENTIRE TESTING DONE ON ROOM AIR, 1 REST BREAK TAKEN (4TH MINUTE) BY PATIENT D/U INCREASED WOB AND OVERALL FEELING OF BEING WORN OUT. Initialized on 09/29/20 12:52 - END OF NOTE - Interpretation Interpretation: The patient was able to ambulate 855 feet over the course of 6 minutes on room air with no assistive devices and one break. The patient experienced no significant desaturation or tachycardia during testing. These findings are consistent with a musculoskeletal limitation exercise tolerance. - Recommendations Recommendations: No supplemental oxygen is indicated at this time.
== END ==
PROVIDERS: PCP Family Medicine; Referring Provider Nurse Practitioner Acute Care; Visit Provider Nurse Practitioner Acute Care
DX: J44.9 Chronic obstructive pulmonary disease, unspecified (principal)
CPT/HCPCS: 94618

== ENCOUNTER → 2020-10-05 07:49 | Outpatient (CLI) | payer OTHER, SELFPAY ==
[2020-09-12 08:24] VITALS: BMI 16.7
[2020-09-20 08:35] VITALS: BMI 16.7
[2020-10-05 08:09] LABS: 24 Hour Urine Protein 395.2 mg/24HR (<150 MG/24HR); 24HR. UA Prot. Total Volume 775 mL
[2020-10-05 09:14] LABS: Albumin, Serum 3.3 g/dL (3.2-5.0); BUN 35 mg/dL (7-18); BUN/Creat Ratio 16.8 RATIO (10-20); Calcium,Total 8.6 mg/dL (8.5-10.1); Chloride 109 mmol/L (98-107); Creatinine, Serum 2.08 mg/dL (0.55-1.02); EST Glomerular Filtration Rate 26 mL/min (>60); Est Glom Filt Rate - Afr Amer 31 mL/min (>60); Glucose 198 mg/dL (74-106); Phosphorus 4.9 mg/dL (2.5-4.9); Potassium 4.9 mmol/L (3.5-5.1); Sodium Level 140 mmol/L (136-145)
[2020-10-05 09:27] LABS: Creat.Clear Total Volume 775 mL; Creatinine Clearance 22 ml/min (100-200); Creatinine Serum Creat 2.1 mg/dL (0.6-1.0); Creatinine Urine 84.2 mg/dL (NO RANGE EST.); EST Glomerular Filtration Rate 26 mL/min (>60); Est Glom Filt Rate - Afr Amer 31 mL/min (>60)
--- NOTE | 2020-10-06 14:52 | PFT ---
INTRODUCTION: The patient is a 59-year-old female that presents for pulmonary function studies secondary to a diagnosis of COPD. Respiratory therapy reports good patient effort. Bronchodilators were used during testing. INTERPRETATION: Forced expiration spirometry demonstrates the presence of a severe large airways obstructive ventilatory defect. There was no significant response to aerosolized bronchodilators, based upon strict ATS criteria. Spirograms are of good quality and do not plateau indicating slow emptying of the lungs. Body plethysmography was performed and revealed an elevated TLC and RV, indicative of underlying hyperinflation and air trapping. Diffusing capacity by single breath CO was reduced at 54% of predicted. IMPRESSION: Irreversible severe large airways obstructive ventilatory defect with associated hyperinflation, air trapping and symmetric reduction in diffusing capacity.
== END ==
LOC: PSN 07:50
PROVIDERS: Internal Medicine Nephrology; PCP Family Medicine; Referring Provider Nurse Practitioner Acute Care; Visit Provider Nurse Practitioner Acute Care
DX: J44.9 Chronic obstructive pulmonary disease, unspecified (principal); N18.4 Chronic kidney disease, stage 4 (severe)
CPT/HCPCS: 36415; 80069; 81050; 82575; 84156; 94060; 94726; 94729

== ENCOUNTER → 2020-12-08 08:41 | Outpatient (CLI) | payer OTHER, SELFPAY ==
[2020-09-06 10:36] VITALS: BMI 18.1
[2020-11-20 08:50] VITALS: BMI 16.6
[2020-12-08 09:37] LABS: Albumin, Serum 3.2 g/dL (3.2-5.0); BUN 26 mg/dL (7-18); BUN/Creat Ratio 13.6 RATIO (10-20); Calcium,Total 8.8 mg/dL (8.5-10.1); Chloride 107 mmol/L (98-107); Creatinine, Serum 1.91 mg/dL (0.55-1.02); EST Glomerular Filtration Rate 28 mL/min (>60); Est Glom Filt Rate - Afr Amer 34 mL/min (>60); Glucose 48 mg/dL (74-106); Phosphorus 3.2 mg/dL (2.5-4.9); Sodium Level 142 mmol/L (136-145)
== END ==
PROVIDERS: PCP Family Medicine; Visit Provider Internal Medicine Nephrology
DX: N18.4 Chronic kidney disease, stage 4 (severe) (principal)
CPT/HCPCS: 36415; 80069

== ENCOUNTER → 2020-12-29 12:55 | Outpatient (CLI) | payer OTHER, SELFPAY ==
[2020-12-21 14:56] VITALS: BMI 16.9
[2020-12-29 10:08] VITALS: BMI 17.1
--- NOTE | 2020-12-29 12:57 | CDU_ITS ---
Reason For Study: DIZZINESS Rt. Velocities/BP Lt. Velocities/BP Prox CCA 73.8/13.8 cm/sec. Prox CCA 89.8/16.8 cm/sec. Mid CCA 59.4/17.7 cm/sec. Mid CCA 85.9/16.8 cm/sec. Dist CCA 59.8/18.1 cm/sec. Dist CCA 78.1/14.2 cm/sec. Prox ICA 72.9/24.6 cm/sec. Prox ICA 63.7/18.1 cm/sec. Mid ICA 83.3/23.3 cm/sec. Mid ICA 85.9/25.9 cm/sec. Dist ICA 96.3/32.5 cm/sec. Dist ICA 97.6/31.2 cm/sec. Rt. ICA/CCA = 96.3/73.9=1.3. Lt. ICA/CCA = 97.6/89.8=1.1. Prox ECA 91.1/0.0 cm/sec. Prox ECA 67.7/0.0 cm/sec. Rt. Vert. 57.2/16.8 cm/sec. Lt. Vert. 40.5/13.1 cm/sec. Right Extracranial There is homogeneous, smooth atherosclerotic plaque noted in the right common carotid artery. There is intimal thickening but no significant atherosclerotic plaque noted in the right internal carotid artery. There is intimal thickening but no significant atherosclerotic plaque noted in the right external carotid artery. Antegrade flow is noted in the right vertebral artery. There is heterogeneous, irregular atherosclerotic plaque noted in the right bulb. Left Extracranial There is homogeneous, smooth atherosclerotic plaque noted in the left common carotid artery. There is heterogeneous, irregular atherosclerotic plaque noted in the left internal carotid artery. There is intimal thickening but no significant atherosclerotic plaque noted in the left external carotid artery. Antegrade flow is noted in the left vertebral artery. Procedure Carotid Duplex [id number]. Exam performed in department. Interpretation Summary Mild (<50%) stenosis right extracranial internal carotid. Mild (<50%) stenosis left extracranial internal carotid. Flow within the vertebral arteries is antegrade bilaterally. Ordering Physician: Radha Sandhu Referring Physician: Bird Lujan Performed By: Fannie Medina RDCS, SRAVANI
== END ==
LOC: CVS 12:56
PROVIDERS: PCP Family Medicine; Referring Provider Physician Assistant Medical; Visit Provider Physician Assistant Medical
DX: R42 Dizziness and giddiness (principal)
CPT/HCPCS: 93880

== ENCOUNTER → 2021-01-31 15:26 | Outpatient (CLI) | payer OTHER, SELFPAY ==
[2020-12-29 10:08] VITALS: BMI 17.1
--- NOTE | 2021-01-31 15:29 | RAD_ITS ---
STUDY: X-RAY - LEFT WRIST REASON FOR EXAM: Female, 60 years old. Pain, no known injury. TECHNIQUE: 3 view(s) of the wrist were obtained. COMPARISON: None. FINDINGS: Normal visualized distal radius and ulna. Normal radiocarpal articulation. Normal distal radioulnar articulation. Normal carpal bones. Normal carpal articulations. Normal carpometacarpal articulation of the thumb. Normal second through fifth carpometacarpal articulations. Normal visualized metacarpal bones. The soft tissue structures are unremarkable. RAD/Wrist min 3 Views IMPRESSION: Normal x-ray examination of the wrist. Electronically Signed: Rene Minaya DO at 6:15 EDT Tel , Service support ,
== END ==
LOC: MTRAD 15:27
PROVIDERS: PCP Family Medicine; Visit Provider Family Medicine
DX: M25.532 Pain in left wrist (principal)
CPT/HCPCS: 73110

== ENCOUNTER → 2021-04-20 10:03 | Outpatient (CLI) | payer OTHER, SELFPAY ==
[2020-12-29 10:08] VITALS: BMI 17.1
[2021-02-08 08:33] VITALS: BMI 16.1
[2021-04-20 12:18] LABS: Absolute Lymphocyte Count 2.12 X10^3/uL (0.83-4.51); Absolute Neutrophil Count 3.4 X10^3/uL (2.0-7.7); Basophil# 0.05 X10^3/uL; Basophil% 0.7 % (0-1); Eosinophil# 0.58 X10^3/uL; Eosinophils% 8.5 % (0-5); Hematocrit 35.5 % (37-47); Lymphocyte # 2.12 X10^3/ul (0.83-4.51); Mean Corpuscular Hgb 29.3 pg (27.0-32.0); Mean Corpuscular Volume 94.4 fL (81-99); Mean Platelet Vol. 10.3 fl (6.2-12.0); Monocyte# 0.67 X10^3/uL; Monocyte% 9.8 % (0-10); NRBC Flagged by Analyzer 0 % (0-5); Neutrophil # 3.39 X10^3/uL (2.7-7.7); Neutrophil % 49.7 % (47-70); Platelet Count 253 K/mm3 (150-450); RBC Distribution Width CV 12.4 % (11.6-14.6); RBC Distribution Width SD 43.1 fl (35.1-43.9); Red Blood Count 3.76 M/mm3 (4.2-5.4); White Blood Count 6.8 K/mm3 (4.4-11.0)
[2021-04-20 12:57] LABS: PTHIN 81.5 pg/mL (18.4-80.1)
[2021-04-20 13:00] LABS: Vitamin D,25 Hydroxy 54.8 ng/mL
[2021-04-20 13:05] LABS: ALB/GLOB Ratio 0.7 RATIO (0.9-2.4); AST(SGOT) 16 U/L (15-37); Alanine Aminotransfer ALT/SGPT 16 U/L (13-56); Albumin, Serum 3.1 g/dL (3.2-5.0); Alkaline Phosphatase 100 U/L (45-117); Anion Gap 5 (5-15); BUN 26 mg/dL (7-18); BUN/Creat Ratio 13.9 RATIO (10-20); Calcium,Total 8.7 mg/dL (8.5-10.1); Chloride 103 mmol/L (98-107); Creatinine, Serum 1.87 mg/dL (0.55-1.02); EST Glomerular Filtration Rate 29 mL/min (>60); Est Glom Filt Rate - Afr Amer 35 mL/min (>60); Globulin 4.2 g/dL (2.2-4.2); Glucose 211 mg/dL (74-106); Iron 50 ug/dL (50-170); Phosphorus 3.7 mg/dL (2.5-4.9); Potassium 5.3 mmol/L (3.5-5.1); Protein, Total 7.3 g/dL (6.4-8.2); Sodium Level 137 mmol/L (136-145); Thyroid Stim Hormone (TSH) 1.81 uIU/mL (0.358-3.74)
== END ==
LOC: MFPLAB 10:03
PROVIDERS: PCP Family Medicine; Referring Provider Family Medicine; Visit Provider Internal Medicine Nephrology
DX: E10.22 Type 1 diabetes mellitus with diabetic chronic kidney disease (principal); N18.4 Chronic kidney disease, stage 4 (severe); E10.65 Type 1 diabetes mellitus with hyperglycemia; N25.81 Secondary hyperparathyroidism of renal origin; E55.9 Vitamin D deficiency, unspecified
CPT/HCPCS: 36415; 80053; 82306; 83540; 83970; 84100; 84443; 85025; 85027

== ENCOUNTER 2021-12-19 15:16 | Outpatient (CLI) | payer BC, SELFPAY ==
[2021-12-19 18:10] LABS: Hematocrit 33.6 % (37-47); Hemoglobin 10.4 g/dL (12.0-15.0); Mean Corpuscular Hgb 29.1 pg (27.0-32.0); Mean Corpuscular Volume 93.9 fL (81-99); Mean Platelet Vol. 10.6 fl (6.2-12.0); Platelet Count 237 K/mm3 (150-450); RBC Distribution Width CV 13.8 % (11.6-14.6); RBC Distribution Width SD 47.5 fl (35.1-43.9); Red Blood Count 3.58 M/mm3 (4.2-5.4); White Blood Count 6.4 K/mm3 (4.4-11.0)
[2021-12-19 18:35] LABS: Vitamin D,25 Hydroxy 46.2 ng/mL
[2021-12-19 18:38] LABS: ALB/GLOB Ratio 0.8 RATIO (0.9-2.4); AST(SGOT) 15 U/L (15-37); Alanine Aminotransfer ALT/SGPT 21 U/L (13-56); Albumin, Serum 3.1 g/dL (3.2-5.0); Alkaline Phosphatase 90 U/L (45-117); Anion Gap 6 (5-15); BUN 41 mg/dL (7-18); Calcium,Total 8.8 mg/dL (8.5-10.1); Chloride 104 mmol/L (98-107); Cholesterol 119 mg/dL (200); Creatinine, Serum 1.86 mg/dL (0.55-1.02); EST Glomerular Filtration Rate 29 mL/min (>60); Est Glom Filt Rate - Afr Amer 35 mL/min (>60); Ferritin 38 ng/mL (8-252); Globulin 4.1 g/dL (2.2-4.2); Glucose 293 mg/dL (74-106); High Density Lipoprotein 59 mg/dL; Iron 50 ug/dL (50-170); Protein, Total 7.2 g/dL (6.4-8.2); Sodium Level 136 mmol/L (136-145); Thyroid Stim Hormone (TSH) 1.48 uIU/mL (0.358-3.74); Triglycerides 79 mg/dL; Very Low Density Lipoprotein 16 mg/dL (5-40)
[2021-12-20 08:24] LABS: PTHIN 59.6 pg/mL (18.4-80.1)
== END 2021-12-19 23:59 | disposition home or self-care (01) ==
LOC: MFPLAB 15:17
PROVIDERS: PCP Family Medicine; Referring Provider Family Medicine; Visit Provider Family Medicine
DX: D50.0 Iron deficiency anemia secondary to blood loss (chronic) (principal); E10.21 Type 1 diabetes mellitus with diabetic nephropathy; E10.22 Type 1 diabetes mellitus with diabetic chronic kidney disease; N18.30 Chronic kidney disease, stage 3 unspecified
CPT/HCPCS: 36415; 80053; 80061; 82306; 82728; 83540; 83970; 84443; 85027

== ENCOUNTER 2021-12-24 10:33 | Outpatient (CLI) | payer BC, SELFPAY ==
[2021-12-24 11:02] LABS: Hematocrit 33.8 % (37-47); Hemoglobin 10.9 g/dL (12.0-15.0); Mean Corp Hgb Conc 32.2 g/dL (32-36); Mean Corpuscular Hgb 29.7 pg (27.0-32.0); Mean Corpuscular Volume 92.1 fL (81-99); Mean Platelet Vol. 9.8 fl (6.2-12.0); Platelet Count 225 K/mm3 (150-450); RBC Distribution Width SD 47.2 fl (35.1-43.9); Red Blood Count 3.67 M/mm3 (4.2-5.4); White Blood Count 7.8 K/mm3 (4.4-11.0)
[2021-12-24 11:34] LABS: PTHIN 55.7 pg/mL (18.4-80.1)
[2021-12-24 11:37] LABS: Albumin, Serum 3.2 g/dL (3.2-5.0); BUN 43 mg/dL (7-18); BUN/Creat Ratio 23.2 RATIO (10-20); Calcium,Total 8.9 mg/dL (8.5-10.1); Chloride 108 mmol/L (98-107); Creatinine, Serum 1.85 mg/dL (0.55-1.02); EST Glomerular Filtration Rate 29 mL/min (>60); Est Glom Filt Rate - Afr Amer 36 mL/min (>60); Glucose 204 mg/dL (74-106); Phosphorus 4.8 mg/dL (2.5-4.9); Potassium 4.7 mmol/L (3.5-5.1); Sodium Level 138 mmol/L (136-145)
[2021-12-24 15:32] LABS: Vitamin D,25 Hydroxy 45.6 ng/mL
== END 2021-12-24 23:59 | disposition home or self-care (01) ==
LOC: LAB 10:35
PROVIDERS: PCP Family Medicine; Visit Provider Internal Medicine Nephrology
DX: N18.4 Chronic kidney disease, stage 4 (severe) (principal)
CPT/HCPCS: 36415; 80069; 82306; 83970; 85027

== ENCOUNTER 2022-02-08 12:08 | Outpatient (CLI) | payer BC, SELFPAY ==
[2022-02-08 13:23] LABS: Absolute Lymphocyte Count 1.86 X10^3/uL (0.83-4.51); Absolute Neutrophil Count 5.1 X10^3/uL (2.0-7.7); Basophil# 0.06 X10^3/uL; Basophil% 0.7 % (0-1); Eosinophil# 0.45 X10^3/uL; Eosinophils% 5.6 % (0-5); Hematocrit 38.6 % (37-47); Hemoglobin 11.9 g/dL (12.0-15.0); Lymphocyte # 1.86 X10^3/ul (0.83-4.51); Mean Corp Hgb Conc 30.8 g/dL (32-36); Mean Corpuscular Volume 94.1 fL (81-99); Mean Platelet Vol. 9.9 fl (6.2-12.0); Monocyte# 0.56 X10^3/uL; Monocyte% 6.9 % (0-10); NRBC Flagged by Analyzer 0 % (0-5); Neutrophil # 5.12 X10^3/uL (2.7-7.7); Neutrophil % 63.4 % (47-70); Platelet Count 235 K/mm3 (150-450); RBC Distribution Width CV 13.3 % (11.6-14.6); RBC Distribution Width SD 46.5 fl (35.1-43.9); White Blood Count 8.1 K/mm3 (4.4-11.0)
[2022-02-08 14:02] LABS: ALB/GLOB Ratio 0.8 RATIO (0.9-2.4); AST(SGOT) 16 U/L (15-37); Alanine Aminotransfer ALT/SGPT 16 U/L (13-56); Albumin, Serum 3.4 g/dL (3.2-5.0); Alkaline Phosphatase 87 U/L (45-117); Amylase 57 U/L (25-115); Anion Gap 3 (5-15); BUN 47 mg/dL (7-18); BUN/Creat Ratio 20.6 RATIO (10-20); Calcium,Total 9.6 mg/dL (8.5-10.1); Chloride 106 mmol/L (98-107); Creatinine, Serum 2.28 mg/dL (0.55-1.02); EST Glomerular Filtration Rate 23 mL/min (>60); Est Glom Filt Rate - Afr Amer 28 mL/min (>60); Globulin 4.3 g/dL (2.2-4.2); Glucose 180 mg/dL (74-106); Lipase 55 U/L (73-393); Potassium 5.1 mmol/L (3.5-5.1); Protein, Total 7.7 g/dL (6.4-8.2); Sodium Level 136 mmol/L (136-145)
== END 2022-02-08 23:59 | disposition home or self-care (01) ==
PROVIDERS: PCP Family Medicine; Referring Provider Nurse Practitioner Family; Visit Provider Nurse Practitioner Family
DX: R19.8 Other specified symptoms and signs involving the digestive system and abdomen (principal)
CPT/HCPCS: 36415; 80053; 82150; 83690; 85025

== ENCOUNTER 2022-02-18 15:49 | Outpatient (CLI) | payer BC, SELFPAY ==
--- NOTE | 2022-02-18 16:11 | CT_ITS ---
STUDY: CT ABDOMEN WITHOUT IV CONTRAST REASON FOR EXAM: Female, 61 years old. atraumatic abdominal bruising RADIATION DOSAGE (If Supplied By Facility): CTDIvol = ( 6.04 ) mGy, DLP = ( 190.20 ) mGycm TECHNIQUE: Transaxial images were obtained from the lung bases to the iliac crest following administration of Oral Readi-CAT, oral contrast. No IV contrast. Sagittal and coronal images were reconstructed. The pelvis was not included. Individualized dose optimization techniques were used for this CT. COMPARISON: None. Limitations: Lack of IV contrast limits evaluation of the solid organs. FINDINGS: LOWER CHEST: Included lung bases are clear. LIVER: Grossly unremarkable. GALLBLADDER AND BILIARY TREE: Small gallstones in the gallbladder.. PANCREAS: Grossly unremarkable. SPLEEN: Grossly unremarkable. ADRENAL GLANDS: Grossly unremarkable. KIDNEYS AND URETERS: Small calculus in the left kidney. No hydronephrosis. PERITONEUM: No free air. No free fluid. BOWEL: Oral contrast stomach through distal small bowel. No oral contrast in the colon. Stomach is moderately distended with contrast, fluid and air. Heterogeneous material within the contrast is presumed mixing of contents, mass, hematoma or ingested material or foreign body could have a similar appearance and cannot be excluded. No bowel obstruction. Large amount of stool in the included portion of the colon. VESSELS: Abdominal aorta is normal caliber. Atherosclerotic calcifications. No retroperitoneal hematoma. ABDOMINAL WALL: Unremarkable. BONES: No acute abnormalities CT/Abdomen WITH ORAL Cont Only IMPRESSION: Gastric distention with complex material presumed mixing contents with contrast and fluid. Cannot exclude gastric wall thickening or hematoma. Cholelithiasis. Left nephrolithiasis without hydronephrosis. Electronically Signed: Юлия Cast MD at 5:45 EDT ,
== END 2022-02-18 23:59 | disposition home or self-care (01) ==
PROVIDERS: PCP Family Medicine; Referring Provider Nurse Practitioner Family; Visit Provider Nurse Practitioner Family
DX: N20.0 Calculus of kidney (principal); K80.20 Calculus of gallbladder without cholecystitis without obstruction
CPT/HCPCS: 74150

== ENCOUNTER → 2022-05-02 | Outpatient (CLI) | payer BC, SELFPAY ==
[2022-05-02 10:07] LABS: Hematocrit 38.7 % (37-47); Hemoglobin 12.1 g/dL (12.0-15.0); Mean Corp Hgb Conc 31.3 g/dL (32-36); Mean Corpuscular Hgb 29.8 pg (27.0-32.0); Mean Corpuscular Volume 95.3 fL (81-99); Mean Platelet Vol. 9.5 fl (6.2-12.0); Platelet Count 268 K/mm3 (150-450); RBC Distribution Width CV 13.2 % (11.6-14.6); RBC Distribution Width SD 46.5 fl (35.1-43.9); Red Blood Count 4.06 M/mm3 (4.2-5.4); White Blood Count 9.6 K/mm3 (4.4-11.0)
[2022-05-02 10:17] LABS: Protein, Urine (Random) 114.6 mg/dL (<11.9); Protein:Creat Ratio 1579 mg/g CRE (0-200)
[2022-05-02 10:40] LABS: PTHIN 40.1 pg/mL (18.4-80.1)
[2022-05-02 10:42] LABS: Albumin, Serum 3.4 g/dL (3.2-5.0); BUN 40 mg/dL (7-18); BUN/Creat Ratio 21.2 RATIO (10-20); Calcium,Total 9.7 mg/dL (8.5-10.1); Chloride 104 mmol/L (98-107); Creatinine, Serum 1.89 mg/dL (0.55-1.02); EST Glomerular Filtration Rate 29 mL/min (>60); Est Glom Filt Rate - Afr Amer 35 mL/min (>60); Glucose 92 mg/dL (74-106); Phosphorus 3.2 mg/dL (2.5-4.9); Potassium 4.3 mmol/L (3.5-5.1); Sodium Level 137 mmol/L (136-145)
== END | disposition home or self-care (01) ==
PROVIDERS: PCP Family Medicine; Visit Provider Internal Medicine Nephrology
DX: N18.4 Chronic kidney disease, stage 4 (severe) (principal); N25.81 Secondary hyperparathyroidism of renal origin; R80.9 Proteinuria, unspecified
CPT/HCPCS: 36415; 80069; 82570; 83970; 84156; 85027

== ENCOUNTER → 2022-05-29 | Outpatient (CLI) | payer BC, SELFPAY ==
--- NOTE | 2022-05-29 13:47 | CT_ITS ---
STUDY: LOW DOSE CT LUNG CANCER SCREENING REASON FOR EXAM: Female, 61 years old. 75. This corresponds to a calcified granuloma. Stable 2 mm x 3 mm nodule in the right lower lobe. Smoker and gt; 30 pack years RADIATION DOSAGE (If Supplied By Facility): CTDIvol = ( 2.01 ) mGy, DLP = ( 80.27 ) mGycm TECHNIQUE: No contrast was administered. Low dose technique was utilized (average mAS-38 and kVp 120). 1.25 mm axial source images with a slice interval of 1.25-mm were reconstructed in lung windows. 2.5 mm axial source images with a slice interval of 2.5-mm were reconstructed in lung windows. 5.0 mm axial source images with a slice interval of 5.0-mm were reconstructed in soft tissue windows. COMPARISON: Comparison is made with prior study dated 09/15/2020. NODULES: Stable 2 mm x 2 mm nodule in the left upper lobe as seen on axial image #51. Stable 4 mm x 4 mm nodule in the left lower lobe as seen on axial image number Emphysema: Diffuse emphysematous changes. Stable scarring at the lung apices worse on the right side. Endobronchial lesion: None Aorta: Atherosclerotic plaque formation of the aortic arch. CORONARY ARTERIES: Coronary artery calcification is seen. Heart: Unremarkable Pulmonary artery: Unremarkable Mediastinal nodes: Calcified hilar lymph nodes. Other chest and abdominal findings: CT/Low Dose CT Lung Screening IMPRESSION: Lung-RADS category 2 - Continue annual screening with LDCT in 12 months. IMPORTANT NOTES FOR USE: ACR Lung-RADS Version 1.1 Assessment Categories Release Date: 2018 Category: Coded 0-4 bases on nodule(s) with highest degree of suspicion. Negative screen is defined as categories 1 and 2; a positive screen is defined as categories 3 and 4. Category 3 and 4A nodules that are unchanged on interval CT should be coded as category 2, and individuals returned to screening in 12 months. Category 4X: Category 3 or 4 nodules with additional imaging findings that increase the suspicion of lung cancer, such as spiculation, GGN that doubles in size in 1 year, enlarged lymph notes, etc. Category Modifiers: S (significant finding unrelated to lung cancer) Electronically Signed: Dre Tapia MD at 10:53 EDT ,
== END | disposition home or self-care (01) ==
PROVIDERS: PCP Family Medicine; Referring Provider Nurse Practitioner Acute Care; Visit Provider Nurse Practitioner Acute Care
DX: Z12.2 Encounter for screening for malignant neoplasm of respiratory organs (principal); F17.210 Nicotine dependence, cigarettes, uncomplicated
CPT/HCPCS: 71271

== ENCOUNTER → 2022-07-29 | Outpatient (CLI) | payer BC, SELFPAY ==
--- NOTE | 2022-07-29 14:53 | PFTCOMP ---
COMPLETE PULMONARY FUNCTION TEST INTERPRETATION Brief HPI: Patient is a 61-year-old female, currently under the care of Jeanna Davis, who presents to [facility] for complete pulmonary function tests secondary to diagnosis of COPD. Respiratory therapist reports good effort and reproducible results. Interpretation: Forced expiration spirometry shows a severe large airways obstructive ventilatory defect with an FEV1 of 45% predicted. There is a significant bronchodilator response in FVC by strict ATS criteria. Spirograms are of good quality and plateau slowly, indicating slowly emptying areas of the lungs. The respiratory flow volume loop shows decreased expiratory flow rates at all lung volumes consistent with airway obstruction. Lung volumes by body plethysmography show a normal total lung capacity at 5.3 L, 100% predicted. FRC and RV are elevated out of proportion. Lung volume measurements are consistent with air-trapping. Diffusion capacity by carbon monoxide is decreased at 64% predicted. The airway resistance is elevated. Compared to previous pulmonary function tests from 08/20/2018, there has been some improvement in air trapping. Impression: Partially reversible severe large airways obstructive ventilatory defect resulting in air trapping with a symmetric reduction diffusion capacity.
== END | disposition home or self-care (01) ==
PROVIDERS: PCP Family Medicine; Referring Provider Nurse Practitioner Acute Care; Visit Provider Nurse Practitioner Acute Care
DX: J44.9 Chronic obstructive pulmonary disease, unspecified (principal)
CPT/HCPCS: 94060; 94726; 94729

== ENCOUNTER → 2022-07-31 | Outpatient (CLI) | payer BC, SELFPAY ==
[2022-07-31 12:46] VITALS: PULSE 79; PULSE 82; PULSE 86; PULSE 90; PULSE 93; PULSE 95; PULSE 96; O2SAT 93; O2SAT 94; O2SAT 95; O2SAT 97; O2SAT 98; O2SAT 99
--- NOTE | 2022-08-05 05:50 | PCM.PSN.6M ---
PSN 6 Minute Walk Test 6 Minute Walk Test 6 Minute Walk Test: 6 Minute Walk Test PSN:6-Minute Walk Test Start: 07/31/22 12:46 Freq: Status: Active Protocol: RESP.6MINW Document 07/31/22 12:46 [facility] (Rec: 07/31/22 12:51 [facility] [id number]) 6 Minute Walk Test Date Performed 07/31/22 Time Performed 12:30 Height 5 ft 6 in Weight: 45.813 kg Weight in Pounds 101.[address]: Jeanna Davis GENERAL WORKER Assistive device used: None Pre-test Oxygen Delivery Method Room Air Pulse Ox (%) 97 Pulse Rate (60-100 beats/min) 79 Dyspnea James Scale (0-10) 0.5 Exertion James Scale (6-20) 6 1st minute Oxygen Delivery Method Room Air Pulse Ox (%) 95 Pulse Rate (60-100 beats/min) 82 2nd minute Oxygen Delivery Method Room Air Pulse Ox (%) 94 Pulse Rate (60-100 beats/min) 86 3rd minute Oxygen Delivery Method Room Air Pulse Ox (%) 93 Pulse Rate (60-100 beats/min) 90 4th minute Oxygen Delivery Method Room Air Pulse Ox (%) 93 Pulse Rate (60-100 beats/min) 93 5th minute Oxygen Delivery Method Room Air Pulse Ox (%) 98 Pulse Rate (60-100 beats/min) 95 6th minute Oxygen Delivery Method Room Air Pulse Ox (%) 98 Pulse Rate (60-100 beats/min) 96 Dyspnea James Scale (0-10) 5 Exertion James Scale (6-20) 14 Post-test Oxygen Delivery Method Room Air Pulse Ox (%) 99 Pulse Rate (60-100 beats/min) 82 Full Laps Walked 18 Partial Lap, Number of Tiles Walked 20 Total Distance Walked (ft) 1082 Interpretation Interpretation: The patient was able to ambulate 1082 feet over the course of 6 minutes on room air with no assistive devices or breaks. The patient experienced no significant tachycardia, but did have a decrease in pulse oximetry from 97% at baseline to as low as 93%. These findings are consistent with a respiratory limitation exercise tolerance. Recommendations Recommendations: No supplemental oxygen is indicated at this time. However, patient will need to be followed closely given level of desaturation.
== END | disposition home or self-care (01) ==
PROVIDERS: PCP Family Medicine; Referring Provider Nurse Practitioner Acute Care; Visit Provider Nurse Practitioner Acute Care
DX: J44.9 Chronic obstructive pulmonary disease, unspecified (principal)
CPT/HCPCS: 94618

== ENCOUNTER → 2022-10-11 | Outpatient (CLI) | payer BC, SELFPAY ==
--- NOTE | 2022-10-11 10:41 | RAD_ITS ---
INDICATION: CULLENS SIGN PRESENT EXAMINATION/TECHNIQUE: X-RAY - XR Abdomen Series W/ Chest 1 View COMPARISON: FINDINGS: --Chest: LINES/DEVICES: None. LUNGS: Lungs are hyperinflated without consolidation, edema or effusion. Tiny calcified granuloma left upper lobe. No pneumothorax. MEDIASTINUM AND CARDIOVASCULAR STRUCTURES: Cardiac silhouette not enlarged. Central airways and mediastinal contour are unremarkable. BONES AND SOFT TISSUES: No acute findings. --Abdomen: BOWEL GAS PATTERN: Non-obstructive. Mild diffuse fecal retention in the colon. No bowel or stomach distention. FREE AIR: None visualized. ORGANOMEGALY: Not seen. CALCIFICATIONS: No abnormal calcifications observed. BONES AND SOFT TISSUES: No acute findings. RAD/Acute Abdomen Inc Chest IMPRESSION: Negative chest and abdominal series. Electronically Signed: Kameron Vargas MD at 18:52 EST ,
[2022-10-11 12:11] LABS: Absolute Lymphocyte Count 2.65 X10^3/uL (0.83-4.51); Absolute Neutrophil Count 3.7 X10^3/uL (2.0-7.7); Basophil# 0.09 X10^3/uL; Basophil% 1.2 % (0-1); Eosinophil# 0.64 X10^3/uL; Eosinophils% 8.5 % (0-5); Hematocrit 43.9 % (37-47); Hemoglobin 13.4 g/dL (12.0-15.0); Lymphocyte # 2.65 X10^3/ul (0.83-4.51); Lymphocyte % 35.2 % (19-41); Mean Corp Hgb Conc 30.5 g/dL (32-36); Mean Corpuscular Hgb 29.6 pg (27.0-32.0); Mean Corpuscular Volume 96.9 fL (81-99); Mean Platelet Vol. 10.5 fl (6.2-12.0); Monocyte# 0.44 X10^3/uL; Monocyte% 5.8 % (0-10); NRBC Flagged by Analyzer 0 % (0-5); Neutrophil # 3.69 X10^3/uL (2.7-7.7); Platelet Count 301 K/mm3 (150-450); RBC Distribution Width CV 13.4 % (11.6-14.6); RBC Distribution Width SD 48.3 fl (35.1-43.9); Red Blood Count 4.53 M/mm3 (4.2-5.4); White Blood Count 7.5 K/mm3 (4.4-11.0)
[2022-10-11 12:14] LABS: Erythrocyte Sedimentation Rate 38 mm/hr (0-30)
[2022-10-11 12:23] LABS: International Normalized Ratio 0.9; Prothrombin Time (Protime)PT. 12.2 SECONDS (11.7-14.9)
[2022-10-11 12:24] LABS: Partial Thromboplast Time 29.2 Seconds (24.1-36.2)
[2022-10-11 12:35] LABS: ALB/GLOB Ratio 0.8 RATIO (0.9-2.4); AST(SGOT) 8 U/L (15-37); Alanine Aminotransfer ALT/SGPT 11 U/L (13-56); Albumin, Serum 3.1 g/dL (3.2-5.0); Alkaline Phosphatase 93 U/L (45-117); Amylase 51 U/L (25-115); Anion Gap 7 (5-15); BUN 38 mg/dL (7-18); BUN/Creat Ratio 16.2 RATIO (10-20); Calcium,Total 9.2 mg/dL (8.5-10.1); Chloride 101 mmol/L (98-107); Cholesterol 266 mg/dL (200); Creatinine, Serum 2.35 mg/dL (0.55-1.02); EST Glomerular Filtration Rate 22 mL/min (>60); Est Glom Filt Rate - Afr Amer 27 mL/min (>60); Ferritin 27 ng/mL (8-252); Globulin 3.8 g/dL (2.2-4.2); Glucose 206 mg/dL (74-106); High Density Lipoprotein 64 mg/dL; Iron 67 ug/dL (50-170); Lipase 82 U/L (73-393); Potassium 4.2 mmol/L (3.5-5.1); Protein, Total 6.9 g/dL (6.4-8.2); Sodium Level 138 mmol/L (136-145); Thyroid Stim Hormone (TSH) 1.67 uIU/mL (0.358-3.74); Triglycerides 198 mg/dL; Very Low Density Lipoprotein 40 mg/dL (5-40)
[2022-10-11 12:36] LABS: Vitamin D,25 Hydroxy 30.7 ng/mL
== END | disposition home or self-care (01) ==
LOC: MTLAB 10:39
PROVIDERS: PCP Family Medicine; Referring Provider Family Medicine; Visit Provider Family Medicine
DX: R53.83 Other fatigue (principal); E10.3219 Type 1 diabetes mellitus with mild nonproliferative diabetic retinopathy with macular edema, unspecified eye; R63.4 Abnormal weight loss; R19.8 Other specified symptoms and signs involving the digestive system and abdomen; T14.8XXA Other injury of unspecified body region, initial encounter
CPT/HCPCS: 36415; 74022; 80053; 80061; 82150; 82306; 82728; 83540; 83690; 84443; 85025; 85610; 85652; 85730

== ENCOUNTER → 2023-02-26 | Outpatient (CLI) | payer OTHER, SELFPAY ==
[2023-02-26 08:53] LABS: PTHIN 110.4 pg/mL (18.4-80.1)
[2023-02-26 08:58] LABS: Vitamin D,25 Hydroxy 54.6 ng/mL
[2023-02-26 09:07] LABS: ALB/GLOB Ratio 0.8 RATIO (0.9-2.4); AST(SGOT) 15 U/L (15-37); Alanine Aminotransfer ALT/SGPT 16 U/L (13-56); Albumin, Serum 3.1 g/dL (3.2-5.0); Alkaline Phosphatase 88 U/L (45-117); Anion Gap 3 (5-15); BUN 39 mg/dL (7-18); BUN/Creat Ratio 17.7 RATIO (10-20); Calcium,Total 8.7 mg/dL (8.5-10.1); Chloride 105 mmol/L (98-107); EST Glomerular Filtration Rate 24 mL/min (>60); Est Glom Filt Rate - Afr Amer 29 mL/min (>60); Globulin 3.8 g/dL (2.2-4.2); Glucose 270 mg/dL (74-106); Phosphorus 4.1 mg/dL (2.5-4.9); Protein, Total 6.9 g/dL (6.4-8.2); Sodium Level 134 mmol/L (136-145)
[2023-02-26 10:28] LABS: Hematocrit 39.3 % (37-47); Hemoglobin 12.1 g/dL (12.0-15.0); Mean Corp Hgb Conc 30.8 g/dL (32-36); Mean Corpuscular Hgb 29.5 pg (27.0-32.0); Mean Corpuscular Volume 95.9 fL (81-99); Mean Platelet Vol. 10.2 fl (6.2-12.0); Platelet Count 217 K/mm3 (150-450); RBC Distribution Width SD 49.3 fl (35.1-43.9); White Blood Count 5.6 K/mm3 (4.4-11.0)
== END | disposition home or self-care (01) ==
LOC: LAB 07:58
PROVIDERS: PCP Family Medicine; Referring Provider Internal Medicine Nephrology; Visit Provider Internal Medicine Nephrology
DX: E10.22 Type 1 diabetes mellitus with diabetic chronic kidney disease (principal); E10.3219 Type 1 diabetes mellitus with mild nonproliferative diabetic retinopathy with macular edema, unspecified eye; N18.4 Chronic kidney disease, stage 4 (severe); R53.83 Other fatigue
CPT/HCPCS: 36415; 80053; 82306; 83970; 84100; 84443; 85027

== ENCOUNTER → 2023-02-27 | Outpatient (CLI) | payer OTHER, SELFPAY ==
--- NOTE | 2023-02-27 16:39 | STRESSREP ---
Stress Test Report Pharmacologic myocardial perfusion stress test. 62-year-old lady with a history of chest pain Resting EKG demonstrates normal sinus rhythm with a rate of 63 bpm. Resting blood pressure is 144/70 mmHg. 0.4 mg of regadenoson was infused per usual protocol followed by rapid intravenous saline flush injection. Continuous EKG monitoring was performed. The maximum heart rate was 74 bpm which was 47% of max impacted heart rate the maximum workload was 1 metabolic equivalent. At rest there were no ST or T wave changes noted to suggest ischemia and at peak infusion nonspecific ST changes were noted which did not meet the criteria for ischemia. No clinical angina is noted. The final blood pressure was 130/66 mmHg. Myocardial perfusion protocol. 11.3 mCi of technetium 99m sestamibi was injected at rest. 0.4 mg of regadenoson was infused per usual protocol. At peak infusion 33.8 mCi of technetium 99m sestamibi was injected stress images were obtained stress and rest images were reconstructed and compared in the short axis vertical long and horizontal long axis. Gated images were also obtained. Perfusion SPECT analysis: Review of the stress images demonstrate normal uptake of tracer noted in all areas of the myocardium. The resting images similar demonstrated normal uptake of tracer noted in all areas of the myocardium. No areas of reversibility are noted to suggest ischemia and no previous infarct is noted. Gated SPECT analysis: The gated ejection fraction is 78%. Conclusion: Normal pharmacologic myocardial perfusion stress test. Preserved ejection fraction.
== END | disposition home or self-care (01) ==
LOC: CVS 06:36
PROVIDERS: PCP Family Medicine; Referring Provider Physician Assistant Medical; Visit Provider Physician Assistant Medical
DX: R07.9 Chest pain, unspecified (principal); I25.119 Atherosclerotic heart disease of native coronary artery with unspecified angina pectoris; Z95.5 Presence of coronary angioplasty implant and graft
CPT/HCPCS: 78452; 93017; A9500; A4216; J2785

== ENCOUNTER → 2023-03-17 | Outpatient (CLI) | payer OTHER, SELFPAY ==
[2023-03-17 16:55] LABS: Albumin, Serum 3.3 g/dL (3.2-5.0); BUN 42 mg/dL (7-18); BUN/Creat Ratio 16.1 RATIO (10-20); Calcium,Total 9.6 mg/dL (8.5-10.1); Chloride 100 mmol/L (98-107); Creatinine, Serum 2.61 mg/dL (0.55-1.02); EST Glomerular Filtration Rate 20 mL/min (>60); Est Glom Filt Rate - Afr Amer 24 mL/min (>60); Glucose 151 mg/dL (74-106); Magnesium 2.5 mg/dL (1.6-2.6); Phosphorus 3.4 mg/dL (2.5-4.9); Potassium 5.1 mmol/L (3.5-5.1); Sodium Level 137 mmol/L (136-145)
[2023-03-17 16:58] LABS: Protein, Urine (Random) 75.7 mg/dL (<11.9); Protein:Creat Ratio 2540 mg/g CRE (0-200)
[2023-03-18 08:19] LABS: PTHIN 39.8 pg/mL (18.4-80.1)
== END | disposition home or self-care (01) ==
LOC: POLAB3 13:17
PROVIDERS: PCP Family Medicine; Visit Provider Internal Medicine Nephrology
DX: E10.22 Type 1 diabetes mellitus with diabetic chronic kidney disease (principal); N18.4 Chronic kidney disease, stage 4 (severe)
CPT/HCPCS: 80069; 82570; 83735; 83970; 84156

== ENCOUNTER → 2023-05-19 | Outpatient (CLI) | payer OTHER, SELFPAY ==
--- NOTE | 2023-05-20 05:32 | PFTCOMP ---
COMPLETE PULMONARY FUNCTION TEST INTERPRETATION Brief HPI: Patient is a 62-year-old female, currently under the care of Dr. Alva, who presents to [facility] for complete pulmonary function tests secondary to diagnosis of COPD. Respiratory therapist reports good effort and reproducible results. Interpretation: Forced expiration spirometry shows a very severe large airways obstructive ventilatory defect with an FEV1 of 33% predicted. There is a significant bronchodilator response in FVC by strict ATS criteria. Spirograms are of good quality and plateau slowly, indicating slowly emptying areas of the lungs. The respiratory flow volume loop shows decreased expiratory flow rates at all lung volumes consistent with airway obstruction. Lung volumes by body plethysmography show an elevated total lung capacity at 6.97 L, 132% predicted. FRC and RV are elevated out of proportion. Lung volume measurements are consistent with hyperinflation and air-trapping. Diffusion capacity by carbon monoxide is decreased at 60% predicted. The airway resistance is elevated. Compared to previous pulmonary function tests from 07/29/2022, there is been a significant decrease in lung flows with worsening air trapping and hyperinflation. Impression: Partially reversible very severe large airways obstructive ventilatory defect, resulting in air trapping with hyperinflation, and a concomitant reduction in diffusion capacity
== END | disposition home or self-care (01) ==
LOC: PSN 10:30
PROVIDERS: PCP Family Medicine; Referring Provider Nurse Practitioner Acute Care; Visit Provider Nurse Practitioner Acute Care
DX: J44.9 Chronic obstructive pulmonary disease, unspecified (principal)
CPT/HCPCS: 94060; 94726; 94729

== ENCOUNTER → 2023-06-02 | Outpatient (CLI) | payer OTHER, SELFPAY ==
--- NOTE | 2023-06-02 12:54 | CT_ITS ---
STUDY: LOW DOSE CT LUNG CANCER SCREENING REASON FOR EXAM: Female, 62 years old. One pack per day smoker x50 years, history of hypertension and asthma RADIATION DOSAGE (If Supplied By Facility): CTDIvol = ( 2.01 ) mGy, DLP = ( 80.52 ) mGycm TECHNIQUE: No contrast was administered. Low dose technique was utilized (average mAS-38 and kVp 120). 1.25 mm axial source images with a slice interval of 1.25-mm were reconstructed in lung windows. 2.5 mm axial source images with a slice interval of 2.5-mm were reconstructed in lung windows. 5.0 mm axial source images with a slice interval of 5.0-mm were reconstructed in soft tissue windows. COMPARISON: 05/29/2022 FINDINGS: Lung windows show underlying emphysema. Stable nonspecific pleural thickening noted in both upper lobes. There is a stable 3 mm noncalcified nodule in the right upper lobe on axial image 30, there is stable pleural thickening throughout both hemithoraces. There is a new noncalcified nodule in the left upper lobe on axial image 57 measuring 4.5 mm which shows some subtle spiculated borders. There is a stable calcified granuloma along the left fissure. Stable fibrotic scarring in the lingula, and right lower lobe. There are also 2 new noncalcified nodules in the right lower lobe on axial images 182 and 184 smaller measures 2.5 mm the larger 4 mm. There is a stable 2 mm nodule in the left lower lobe on axial image 184. There is also a new 2 mm nodule in the left lower lobe on axial and 99 in the 4 mm nodule in the right lower lobe on axial image 201. Limited soft tissue windows show normal-appearing thyroid gland. No suspicious axillary, mediastinal, or perihilar adenopathy. There are calcified coronary vessels. No pleural or pericardial effusions. Limited cuts through the upper abdomen do not show a suspicious abnormality. Bony structures show degenerative change Multiple new concerning noncalcified nodules have developed since the previous study, further imaging recommended. CT/Low Dose CT Lung Screening IMPRESSION: Lung-RADS category 4B - Chest CT with or without contrast, PET/CT and/or tissue sampling can be obtained depending on the probability of malignancy and comorbidities. IMPORTANT NOTES FOR USE: ACR Lung-RADS Version 1.1 Assessment Categories Release Date: 2018 Category: Coded 0-4 bases on nodule(s) with highest degree of suspicion. Negative screen is defined as categories 1 and 2; a positive screen is defined as categories 3 and 4. Category 3 and 4A nodules that are unchanged on interval CT should be coded as category 2, and individuals returned to screening in 12 months. Category 4X: Category 3 or 4 nodules with additional imaging findings that increase the suspicion of lung cancer, such as spiculation, GGN that doubles in size in 1 year, enlarged lymph notes, etc. Category Modifiers: S (significant finding unrelated to lung cancer) Electronically Signed: Pro Stevens MD at 11:11 EDT ,
== END | disposition home or self-care (01) ==
LOC: CT 12:53
PROVIDERS: PCP Family Medicine; Referring Provider Nurse Practitioner Acute Care; Visit Provider Nurse Practitioner Acute Care
DX: Z12.2 Encounter for screening for malignant neoplasm of respiratory organs (principal); F17.210 Nicotine dependence, cigarettes, uncomplicated
CPT/HCPCS: 71271

== ENCOUNTER → 2023-06-12 | Outpatient (CLI) | payer OTHER, SELFPAY ==
[2023-06-12 08:36] VITALS: PULSE 59; PULSE 60; PULSE 62; PULSE 64; PULSE 65; PULSE 66; PULSE 68; O2SAT 84; O2SAT 87; O2SAT 89; O2SAT 90; O2SAT 92; O2SAT 95; O2SAT 96
--- NOTE | 2023-06-12 08:40 | CPS ---
PATIENT DOES NOT HAVE DME SERVICES AT HOME. SPO2 BOUNCED BETWEEN 88-89% ON RA PRIOR TO BEGINNING WALK TEST. PATIENT REQUESTED TO BEGIN WITHOUT SUPPLEMENTAL O2. AT 1MIN, SPO2 84%RA, REST TAKEN TO PLACE PT ON 2LPM AND WALK CONTINUED. PATIENT REQUIRED ANOTHER SHORT REST BREAK FOR INCREASE TO 3LPM FOR SPO2 87% ON 2LPM, REMAINDER OF TESTING DONE ON 3LPM. PATIENT UNDERSTANDS BENEFITS OF OXYGEN USE AND RISKS WITH SMOKING AND OXYGEN USE. SHE IS REQUESTING SMALL, PORTABLE TANKS IF SHE IS TO HAVE OXYGEN AT HOME AND PREFERS TO USE [email or web address] FOR THIS SERVICE.
--- NOTE | 2023-06-12 10:08 | PCM.PSN.6M ---
PSN 6 Minute Walk Test 6 Minute Walk Test 6 Minute Walk Test: 6 Minute Walk Test PSN:6-Minute Walk Test Start: 06/12/23 08:36 Freq: Status: Active Protocol: RESP.6MINW Document 06/12/23 08:36 [facility] (Rec: 06/12/23 08:44 [facility] [id number]) 6 Minute Walk Test Date Performed 06/12/23 Time Performed 08:15 Height 5 ft 6 in Weight: 100 lb Weight in Pounds 100.[address]: Jeanna Davis LICENSE AND PERMIT SPECIALIST Assistive device used: None Pre-test Oxygen Delivery Method Room Air Pulse Ox 89 Pulse Rate (60-100) 59 L Dyspnea James Scale (0-10) 3 Reported Symptoms Increased Work of Breathing 1st minute Oxygen Delivery Method Room Air Pulse Ox 84 Pulse Rate (60-100) 64 Dyspnea James Scale (0-10) 3 Number of Rests Taken 1 Reported Symptoms Increased Work of Breathing 2nd minute Oxygen Flow Rate (L/min) 2 Oxygen Delivery Method Nasal Cannula Pulse Ox 87 Pulse Rate (60-100) 66 Dyspnea James Scale (0-10) 3 Number of Rests Taken 1 Reported Symptoms Increased Work of Breathing 3rd minute Oxygen Flow Rate (L/min) 3 Oxygen Delivery Method Nasal Cannula Pulse Ox 92 Pulse Rate (60-100) 68 Dyspnea James Scale (0-10) 4 Number of Rests Taken 0 Reported Symptoms Increased Work of Breathing 4th minute Oxygen Flow Rate (L/min) 3 Oxygen Delivery Method Nasal Cannula Pulse Ox 96 Pulse Rate (60-100) 68 Dyspnea James Scale (0-10) 4 Number of Rests Taken 1 Reported Symptoms Increased Work of Breathing 5th minute Oxygen Flow Rate (L/min) 3 Oxygen Delivery Method Nasal Cannula Pulse Ox 96 Pulse Rate (60-100) 62 Dyspnea James Scale (0-10) 4 Number of Rests Taken 0 Reported Symptoms Increased Work of Breathing 6th minute Oxygen Flow Rate (L/min) 3 Oxygen Delivery Method Nasal Cannula Pulse Ox 95 Pulse Rate (60-100) 65 Dyspnea James Scale (0-10) 4 Number of Rests Taken 0 Reported Symptoms Increased Work of Breathing Post-test Oxygen Delivery Method Room Air Pulse Ox 90 Pulse Rate (60-100) 60 Dyspnea James Scale (0-10) 3 Reported Symptoms Increased Work of Breathing Full Laps Walked 9 Partial Lap, Number of Tiles Walked 43 Total Distance Walked (ft) 574 06/12/23 08:40 Cardiopulmonary Services by Rita Martinez PATIENT DOES NOT HAVE DME SERVICES AT HOME. SPO2 BOUNCED BETWEEN 88-89% ON RA PRIOR TO BEGINNING WALK TEST. PATIENT REQUESTED TO BEGIN WITHOUT SUPPLEMENTAL O2. AT 1MIN, SPO2 84%RA, REST TAKEN TO PLACE PT ON 2LPM AND WALK CONTINUED. PATIENT REQUIRED ANOTHER SHORT REST BREAK FOR INCREASE TO 3LPM FOR SPO2 87% ON 2LPM, REMAINDER OF TESTING DONE ON 3LPM. PATIENT UNDERSTANDS BENEFITS OF OXYGEN USE AND RISKS WITH SMOKING AND OXYGEN USE. SHE IS REQUESTING SMALL, PORTABLE TANKS IF SHE IS TO HAVE OXYGEN AT HOME AND PREFERS TO USE [employer] FOR THIS SERVICE. Initialized on 06/12/23 08:40 - END OF NOTE Interpretation Interpretation: The patient ambulated 574 feet over the course of 6 minutes beginning on room air without assistive devices. Pretesting oxygen saturation was noted to be 89% on room air. With ambulation, the patient desaturated on several occasions requiring the initiation and escalation of supplemental O2 to 3 L/min to maintain appropriate saturations. Recommendations Recommendations: 3 L/min of supplemental oxygen should be utilized both at rest and with exertion.
== END | disposition home or self-care (01) ==
LOC: PSN 08:06
PROVIDERS: PCP Family Medicine; Referring Provider Nurse Practitioner Acute Care; Visit Provider Nurse Practitioner Acute Care
DX: J44.9 Chronic obstructive pulmonary disease, unspecified (principal)
CPT/HCPCS: 94618

== ENCOUNTER → 2023-06-19 | Outpatient (CLI) | payer OTHER, SELFPAY ==
[2023-06-19 11:35] LABS: Protein:Creat Ratio 2902 mg/g CRE (0-200)
[2023-06-19 11:41] LABS: BUN 34 mg/dL (7-18); BUN/Creat Ratio 14.5 RATIO (10-20); Calcium,Total 8.4 mg/dL (8.5-10.1); Chloride 107 mmol/L (98-107); Creatinine, Serum 2.34 mg/dL (0.55-1.02); EST Glomerular Filtration Rate 22 mL/min (>60); Est Glom Filt Rate - Afr Amer 27 mL/min (>60); Glucose 251 mg/dL (74-106); Phosphorus 3.3 mg/dL (2.5-4.9); Potassium 5.4 mmol/L (3.5-5.1); Sodium Level 140 mmol/L (136-145)
== END | disposition home or self-care (01) ==
LOC: POLAB3 10:40
PROVIDERS: PCP Family Medicine; Visit Provider Internal Medicine Nephrology
DX: E10.22 Type 1 diabetes mellitus with diabetic chronic kidney disease (principal); N18.4 Chronic kidney disease, stage 4 (severe); N25.81 Secondary hyperparathyroidism of renal origin
CPT/HCPCS: 36415; 80069; 82570; 83970; 84156

== ENCOUNTER → 2023-08-06 | Outpatient (CLI) | payer OTHER, SELFPAY ==
--- NOTE | 2023-08-06 13:19 | CT_ITS ---
STUDY: CT CHEST WITHOUT CONTRAST REASON FOR EXAM: Female, 62 years old. FLOR nodule RADIATION DOSAGE (If Supplied By Facility): CTDIvol = ( 5.16 ) mGy, DLP = ( 202.77 ) mGycm TECHNIQUE: Transaxial imaging was performed without the administration of intravenous contrast material. Multiplanar coronal and sagittal images were reformatted. Individualized dose optimization techniques were used for this CT. COMPARISON: Comparison is made with prior study dated June 02, 2023. FINDINGS: CHEST Stable scarring at the lung apices more prominent on the right side. Hyperinflation. Emphysematous changes with bullous formation more prominent in the upper lobes. Stable 3 mm noncalcified nodule in the medial right upper lobe as seen on axial image #16. Stable 4.5 mm nodule in the lateral aspect of the left upper lobe as seen on axial image #27. Stable calcified granuloma in the left upper lobe in the region of the left major fissure. 2 adjacent calcified granulomas in the right lower lobe. There are calcifications of the coronary arteries. There are multiple small lymph nodes within the mediastinum, which are normal in size and morphology most compatible with reactive lymph hyperplasia. Normal hilar regions. Normal unenhanced pulmonary arteries. There is atherosclerotic calcification of the aortic arch with tortuosity and elongation of the aortic arch and descending thoracic aorta. There are degenerative changes of the thoracic spine. There is no demonstrated abnormality of the visualized upper abdomen. CT/Chest without Contrast IMPRESSION: Stable examination. Twelve-month follow-up recommended. Electronically Signed: Dre Tapia MD at 10:54 EDT ,
== END | disposition home or self-care (01) ==
LOC: CT 13:18
PROVIDERS: PCP Family Medicine; Referring Provider Internal Medicine Critical Care Medicine; Visit Provider Internal Medicine Critical Care Medicine
DX: R91.1 Solitary pulmonary nodule (principal)
CPT/HCPCS: 71250

== ENCOUNTER → 2023-10-06 | Outpatient (CLI) | payer OTHER, SELFPAY ==
[2023-10-06 10:56] LABS: Hematocrit 34.5 % (37-47); Hemoglobin 10.5 g/dL (12.0-15.0); Mean Corp Hgb Conc 30.4 g/dL (32-36); Mean Corpuscular Hgb 30.2 pg (27.0-32.0); Mean Corpuscular Volume 99.1 fL (81-99); Mean Platelet Vol. 10.5 fl (6.2-12.0); Platelet Count 180 K/mm3 (150-450); RBC Distribution Width CV 12.6 % (11.6-14.6); RBC Distribution Width SD 45.4 fl (35.1-43.9); Red Blood Count 3.48 M/mm3 (4.2-5.4); White Blood Count 10.3 K/mm3 (4.4-11.0)
[2023-10-06 11:05] LABS: Protein, Urine (Random) 229.6 mg/dL (<11.9); Protein:Creat Ratio 3532 mg/g CRE (0-200)
[2023-10-06 11:08] LABS: Albumin, Serum 2.9 g/dL (3.2-5.0); BUN 33 mg/dL (7-18); BUN/Creat Ratio 13.7 RATIO (10-20); Calcium,Total 9.1 mg/dL (8.5-10.1); Chloride 104 mmol/L (98-107); Creatinine, Serum 2.41 mg/dL (0.55-1.02); EST Glomerular Filtration Rate 22 mL/min (>60); Est Glom Filt Rate - Afr Amer 26 mL/min (>60); Glucose 273 mg/dL (74-106); Phosphorus 2.9 mg/dL (2.5-4.9); Potassium 4.8 mmol/L (3.5-5.1); Sodium Level 139 mmol/L (136-145)
[2023-10-06 11:34] LABS: PTHIN 53.6 pg/mL (18.4-80.1)
== END | disposition home or self-care (01) ==
LOC: POLAB3 10:02
PROVIDERS: PCP Family Medicine; Visit Provider Internal Medicine Nephrology
DX: R80.9 Proteinuria, unspecified (principal); N18.4 Chronic kidney disease, stage 4 (severe)
CPT/HCPCS: 36415; 80069; 82570; 83970; 84156; 85027

== ENCOUNTER → 2023-10-09 | Outpatient (CLI) | payer OTHER, SELFPAY ==
[2023-10-09 11:01] LABS: Bacteria 0 SEEN /hpf (None Seen); Mucous, Urine 0 SEEN /hpf (<or=2+)
[2023-10-09 11:21] LABS: Color, Urine Yellow (Yellow); Glucose, Dipstick 250 mg/dl (Normal); Ketone-Dipstick Negative (Negative); Leukocyte Esterase-Dipstick 100 /ul (Negative); Nitrite-Dipstick Negative (Negative); Occult Blood-Urine 10 /ul (Negative); Protein-Dipstick 100 mg/dl (Negative); Specific Gravity, Urine 1.015 (1.002-1.030); Urine Bilirubin Dipstick Negative (Negative); Urine Clarity Sl. Cloudy (Clear); Urine Urobilinogen Normal (Normal)
[2023-10-09 11:34] LABS: Red Blood Cells-Urine 0-5 SEEN /hpf (0-5); Squamous Epithelial Cells - UA 0-5 SEEN /hpf (5-10); White Blood Cells 10-25 SEEN /hpf (0-5)
== END | disposition home or self-care (01) ==
LOC: POLAB3 11:00
PROVIDERS: PCP Family Medicine; Visit Provider Internal Medicine Nephrology
DX: R10.9 Unspecified abdominal pain (principal)
CPT/HCPCS: 81001

== ENCOUNTER → 2023-10-13 | Outpatient (CLI) | payer OTHER, SELFPAY ==
[2023-10-13 16:30] LABS: EST Glomerular Filtration Rate 21 mL/min (>60); Est Glom Filt Rate - Afr Amer 25 mL/min (>60)
[2023-10-13 19:16] LABS: 24 Hour Urine Protein 2213.8 mg/24HR (<150 MG/24HR); 24HR. UA Prot. Total Volume 1250 mL; Creat.Clear Total Volume 1250 mL; Creatinine Clearance 21 ml/min (100-200); Creatinine Serum Creat 2.5 mg/dL (0.6-1.0); Creatinine Urine 61.4 mg/dL (NO RANGE EST.); EST Glomerular Filtration Rate 21 mL/min (>60); Est Glom Filt Rate - Afr Amer 25 mL/min (>60); Urine Protein (24 Hour) 177.1 mg/dL (<11.9)
== END | disposition home or self-care (01) ==
LOC: POLAB3 14:51
PROVIDERS: PCP Family Medicine; Visit Provider Internal Medicine Nephrology
DX: N18.4 Chronic kidney disease, stage 4 (severe) (principal); R10.9 Unspecified abdominal pain
CPT/HCPCS: 36415; 81050; 82565; 82575; 84156; 87086

== ENCOUNTER → 2023-10-20 | Outpatient (CLI) | payer OTHER, SELFPAY ==
--- NOTE | 2023-10-20 11:54 | US_ITS ---
STUDY: RENAL ULTRASOUND - COMPLETE REASON FOR EXAM: Female, 62 years old. FLANK PAIN TECHNIQUE: Ultrasound evaluation of the kidneys was performed with real-time and static min-scale imaging. COMPARISON: None. FINDINGS: RIGHT KIDNEY: Normal location of the right kidney, which is normal in size. The right kidney measures 8.8 cm x 4.8 signed by 4.1 cm. There is a normal cortex of the right kidney. The renal cortex measures 1.0 cm. There is no right renal mass or cyst. There are no right renal calculi. There is no right hydronephrosis. DISTAL RIGHT URETER: There is non-visualization of the distal right ureter. There is no demonstrated right ureterovesical junction calculus. There is a visualized right ureteral jet. LEFT KIDNEY: Normal location of the left kidney, which is normal in size. The left kidney measures 9.3 cm x 3.8 cm x 4.9 cm. There is a normal cortex of the left kidney. The renal cortex measures 1.3 cm. There is no left renal mass or cyst. There are no left renal calculi. There is no left hydronephrosis. DISTAL LEFT URETER: There is non-visualization of the distal left ureter. There is no demonstrated left ureterovesical junction calculus. There is a visualized left ureteral jet. BLADDER: The distended urinary bladder has a volume of 280 ml. There is a normal wall thickness of the distended urinary bladder. There is no demonstrated mass within the urinary bladder. There are no demonstrated bladder calculi. US/Kidney and Bladder IMPRESSION: Normal ultrasound of the kidneys and urinary bladder. Electronically Signed: Dre Tapia MD at 13:50 EST ,
== END | disposition home or self-care (01) ==
LOC: US 11:54
PROVIDERS: PCP Family Medicine; Referring Provider Internal Medicine Nephrology; Visit Provider Internal Medicine Nephrology
DX: R10.9 Unspecified abdominal pain (principal)
CPT/HCPCS: 76770

== ENCOUNTER → 2023-10-29 | Outpatient (CLI) | payer OTHER, SELFPAY | END | disposition home or self-care (01) | LOC: LABSPEC 15:47 | PROVIDERS: PCP Family Medicine; Visit Provider Nurse Practitioner Acute Care | DX: J44.9 Chronic obstructive pulmonary disease, unspecified (principal) | CPT/HCPCS: 87070; 87077; 87186; 87205 ==

== ENCOUNTER → 2023-11-18 | Outpatient (CLI) | payer OTHER, SELFPAY ==
--- OUTSIDE RECORDS SUMMARY | 2023-11-18 12:21 | XMS RPT_ITS | CCD ---
Author Name Unknown Address [address] [place] [address] Organization [facility] Care Team Providers Care Construction Ironworker Helper Name Role Phone Iwona CAPPER MACHINE OPERATOR Ana Rosa F Unavailable Unavailabl e Germángeri CAPPER MACHINE OPERATOR, Ana Rosa F Unavailable Unavailabl e None, No PCP Unavailable Unavailable Medications Completed/Discontinued Medications Medication Drug Class(es) Dates Sig (Normalized) Sig (Original) ALBUTEROL SULFATE (2 sources) beta2-Adrenergic Agonist PROAIR HFA 108 (90 Base) MCG/ACT AERS PRN ALBUTEROL SULFATE [id number] Alyssia Ibanez RN RN AMOXICILLIN-POT CLAVULANATE (8 sources) Penicillin-class Antibacterial Start: 12-30-2012 End: 01-21-2013 AUGMENTIN 875-125 MG TABS bid AMOXICILLIN-POT CLAVULANATE [id number] Edie Szymanski Signs Problems Active Problems Problem Classification Problem Date Documented Da te Episodic/Chronic Anxiety disorders (2 sources) Anxiety disorder; Translations: [Anxiety disorder, unspecified] 02-18-2017 Chronic Chronic kidney disease (2 sources) Chronic kidney disease, unspecified; Translations: [Chronic kidney disease, unspecified] Onset: 01-08-2017 01-08-2017 Chronic Diabetes mellitus with complications (2 sources) Diabetes with neurological manifestations, type I [juvenile type], uncontrolled; Translations: [Diabetes mellitus with neurological manifestations, type I [juvenile type], uncontrolled] Onset: 12-30-2012 12-30-2012 Chronic Diabetes mellitus without complication (2 sources) Type 1 diabetes mellitus; Translations: [Type 1 diabetes mellitus without complications] Onset: 02-23-2017 02-23-2017 Chronic Disorders of lipid metabolism (4 sources) Mixed hyperlipidemia; Translations: [Hyperlipidemia] Onset: 01-08-2017 01-08-2017 Chronic Essential hypertension (2 sources) Hypertensive disorder; Translations: [Essential (primary) hypertension] Onset: 01-08-2017 01-08-2017 Chronic Genitourinary symptoms and ill-defined conditions (1 source) History of renal failure; Translations: [Personal history of other specified urinary system disorders] Episodic Mood disorders (2 sources) Depressive disorder; Translations: [Other depressive episodes] 02-18-2017 Chronic Other circulatory disease (1 source) H/O: heart disorder; Translations: [Personal history of other diseases of circulatory system] Episodic Other lower respiratory disease (1 source) History of chronic obstructive airway disease; Translations: [Personal history of other diseases of respiratory system] Episodic Other nutritional; endocrine; and metabolic disorders (1 source) H/O: diabetes mellitus; Translations: [Personal history of other endocrine, metabolic, and immunity disorders] Episodic Screening or history of mental health and substance abuse (2 sources) Tobacco dependence syndrome; Translations: [Nicotine dependence, unspecified, with unspecified nicotine-induced disorders] Onset: 01-08-2017 01-08-2017 Chronic Past or Other Problems Problem Classification Problem Date Documented Da te Episodic/Chronic Other gastrointestinal disorders (2 sources) H/O: gastrointestinal disease; Translations: [Personal history of other diseases of the digestive system] Onset: 3 01-21-2013 Episodic Other upper respiratory disease (4 sources) Retropharyngeal abscess; Translations: [Disorder of pharynx] Onset: 3 01-21-2013 Episodic Results Test Name Value Interpretation Reference Range Facil ity Vital Signs Date Time Vital Sign Value Performing Clinician Genaro roblero 05-28-2022 12:54-0400 Body height 167.64 cm No PCP None QB-Bxmxjyfioq-MP C [facility] Work Phone: 05-28-2022 12:54-0400 Body mass index (BMI) [Ratio] 17.24 kg/m2 No PCP None LQ-Fcdkqdospt-WYE [facility] Work Phone: 05-28-2022 12:54-0400 Body surface area Derived from formula 1.53 m2 No PCP None LX-Iqxcnvmgfk-AHM [facility] Work Phone: 05-28-2022 12:54-0400 Body temperature 97.2 [degF] No PCP None DD-Pvdiniloff-K [facility] Work Phone: 05-28-2022 12:54-0400 Body weight 48.44 kg No PCP None MW-Xbcyopqniz-IU C [facility] Work Phone: 05-28-2022 12:54-0400 Diastolic blood pressure 55 mm[Hg] No PCP None CC-Novyduxhzw-CGL [facility] Work Phone: 05-28-2022 12:54-0400 Heart rate 68 /min No PCP None CK-Dwrppzughn-TR C [facility] Work Phone: 05-28-2022 12:54-0400 SaO2% (BldA) [Mass fraction] 98 % No PCP None EV-Hctdqvegtr-LEK [facility] Work Phone: 05-28-2022 12:54-0400 Systolic blood pressure 111 mm[Hg] No PCP None TZ-Hqkqgslgxs-WXK [facility] Work Phone: 05-28-2022 12:54-0400 0 1 No PCP None BC-Mhqavyavnm-BB C [facility] Work Phone: Encounters Encounter Date Encounter Type Care Provider Facility Start: 06-09-2022 Chart Update No PCP None [facility] Work Phone: Start: 05-29-2022 Chart Update No PCP None [facility] Work Phone: Start: 05-28-2022 Patient encounter procedure No PCP N one ZY-Lyojwtguxa-GBV [facility] Work Phone: Patient encounter status No PCP None [facility]- [facility] Work Phone: Procedures Date Procedure Procedure Detail Performing Clinician Appendectomy No PCP None Hysterectomy No PCP None Plan of Treatment Date Care Activity Detail Author Start: 03-05-2017 End: 03-06-2017 *CMP Complete Metabolic Panel *CMP Complete Metabolic Panel [facility] Work Phone: Start: 03-05-2017 End: 03-06-2017 *Microalbumin, Creatine Ratio, rand urine *Microalbumin, Creatine Ratio, rand urine [facility] Work Phone: Start: 03-05-2017 End: 03-06-2017 HbA1c *HgA1C [facility] Work Phone: Start: 03-05-2017 End: 03-06-2017 Lipid panel [AGGREGATE] *Lipid Profile [facility] Work Phone: Start: 02-18-2017 End: 02-23-2017 *CMP Complete Metabolic Panel *CMP Complete Metabolic Panel [facility] Work Phone: Start: 02-18-2017 End: 02-23-2017 *Microalbumin, Creatine Ratio, rand urine *Microalbumin, Creatine Ratio, rand urine [facility] Work Phone: Start: 02-18-2017 End: 02-23-2017 Lipid panel [AGGREGATE] *Lipid Profile [facility] Work Phone: Start: 01-21-2013 End: 01-21-2013 *BMP *BMP [facility] Work Phone: Start: 01-21-2013 End: 01-21-2013 *CBC with Differential *CBC with Differential [facility] Work Phone: Start: 01-21-2013 End: 01-21-2013 *CDIF - Clostridium Diff. Toxin Stool *CDIF - Clostridium Diff. Toxin Stool [facility] Work Phone: Start: 01-21-2013 End: 01-21-2013 Erythrocyte sedimentation rate *Sedimentation Rate (ESR) [facility] Work Phone: Start: 01-21-2013 End: 01-21-2013 Helicobacter pylori IgG Ab [Units/volume] in Serum *Helicobacter pylori [facility] Work Phone: Start: 01-21-2013 End: 01-21-2013 PT-TMJ PT-TMJ Physical Therapy [facility], [address] [place] [address], [id number] [facility] Work Phone: Immunizations Immunization Date Immunization Notes Care Provider Fa shielaty 03-22-2021 Moderna COVID-19 Vac cine 100 MCG/0.5ML Intramuscular Suspension No PCP None ZX-Zkoltiqdso-JSY [facility] Work Phone: 02-22-2021 Moderna COVID-19 Vac cine 100 MCG/0.5ML Intramuscular Suspension No PCP None EU-Galqforcqb-GXB [facility] Work Phone: 01-31-2021 pneumococcal conjuga te vaccine, 13 valent No PCP None CK-Xxxxunonbn-IUC [facility] Work Phone: 08-12-2018 influenza, seasonal, injectable No PCP None BN-Svxuecdvfl-JPX [facility] Work Phone: 07-08-2017 influenza, injectabl e, quadrivalent, contains preservative No PCP None IE-Jnacvgutgs-OED [facility] Work Phone: 07-08-2017 tetanus toxoid, redu juliette diphtheria toxoid, and acellular pertussis vaccine, adsorbed No PCP None VX-Sruwpvxgpy-OMM [facility] Work Phone: 08-12-2016 pneumococcal polysac charide vaccine, 23 valent No PCP None ML-Ccbzxaqsgj-LXO [facility] Work Phone: 07-15-2016 influenza, seasonal, injectable No PCP None VK-Vnfkcgrlta-BKT [facility] Work Phone: 08-07-2015 influenza, seasonal, injectable No PCP None OK-Ekfalracas-GTH [facility] Work Phone: Payers Date Payer Category Payer Policy ID Unknown Social History Date Type Detail Facility Current smoker Current smoker [facility] Work Phone: Chief complaint Narrative - Reported Note Date & Type Note Facility Chief complaint Narrative - Reported ChiefComplaintFreeTextNoteFor m_:Kidney transplant surgical evaluation for potential active candidacy on kidney transplant list KL-Ydbnnbagho-TVO [facility] Work Phone: History of Present illness Narrative Note Date & Type Note Facility History of Present illness Narrative Kidney TransplantReason For Visit: Pre-Transplant.Functional Status:Karnofsky Performance Status Scale Definitions Rating (%) Criteria Unable to work; able to live at home and care for most personal needs; varying amount of assistance needed, 70 - Cares for self; unable to carry on normal activity or do active work.CKD: stage 5.TIEDI: diabetes yes onset (22 years ago), history of vascular disease, coronary artery disease and potential living donors. Preemptive (Not on Dialysis)Urine Status: normal.Compliance/Tolerance/Control: good compliance with treatment.Primary Care Provider: Dr. Bird Lujan.Referral: Dr. Christy Huerta (tel: [phone] fax: [phone]).I am seeing SANDY ELLIS at the referring provider's request for surgical suitability for renal transplant candidate listing at [facility] [place] [facility].History of Present Illness Comments: Ms. SANDY ELLIS is a 61 year old white female with end stage renal disease which was diagnosed in 2014 during a hysterectomy when she was found to have abnormal kidney function. She was diagnosed with type 1 diabetes mellitus 22 years ago. She has a history of a myocardial infarction which led to 2 PCI placements after syncope which led to a catheter in 2018.She was diagnosed with COPD in 2018 and has a history of shortness of breath. She has a history of smoking 1 pack per day. 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 Humalog. BasaglarSignificant hypoglycemic events: yes, about 5 times per yearNeuropathy: yesRetinopathy: yesLegal blindness: noRenal failure: yesVascular disease: yesAmputation: noDKA or hyperosmolar coma: noCardiac History:Atrial fibrillation: noPacemaker: noAICD: noCoronary artery stenting: yes, 2 stents placed for history of myocardial infarctionCABG: noShe was not seen by a Logistics Planning Engineer.Psych History:No historyPsychosocial:Smoking: yes, takes Bupropion. She is cutting back and now smokes 3 cigarettes per day. She has a 50 pack/year history.Marijuana/Illicits: NoAlcohol: noFinancial:She is retired. 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[employer].She has Active Health Insurance Coverage: Derick has access to emerging technologies to do virtual visits.Frailty Screen:Feeling fatigued: noAmbulation: cannot walk a city block due to shortness of breath.Stair climbing: cannot climb a flight of stairs due to shortness of breath.Weight loss: noMultiple medical comorbidities: has more than 5.Frailty assessment: she is frailKarnofsky score: 70%Support System:, aunt, sister, son-in-law, all with transportation.Environment:She does not have a fall risk and she lives in a safe and stable environment.Beliefs:She will accept blood products if needed.She has potential living donors.She is vaccinated against COVID-19 but not boosted. HI-[facility] Work Phone: Summary Purpose Family History No Family History Records FoundNo Family History Records Found Advance Directives No Advanced Directives Records FoundNo Advanced Directives Records Found Additional Source Comments INFORMATION SOURCE (unrecogn ized section and content) DATE CREATED AUTHOR AUTHOR'S ORGANIZ ATION 06/03/2022 [facility] FOR RECORDS PERTAINING TO PATIENTS WHO ARE OR HAVE BEEN ENROLLED IN A CHEMICAL DEPENDENCY/SUBSTANCEABUSE PROGRAM, SOME INFORMATION MAY BE OMITTED. This clinical summary was aggregated from multiple sources. Caution should be exercised in using it in the provision of clinical care. This summary normalizes information from multiple sources, and as a consequence, information in this document may materially change the coding, format and clinical context of patient data. In addition, data may be omitted in some cases. CLINICAL DECISIONS SHOULD BE BASED ON THE PRIMARY CLINICAL RECORDS. [employer] provides no warranty or guarantee of the accuracy or completeness of information in this document.
[2023-11-18 13:17] LABS: Albumin, Serum 2.9 g/dL (3.2-5.0); BUN 51 mg/dL (7-18); BUN/Creat Ratio 18.5 RATIO (10-20); Calcium,Total 8.8 mg/dL (8.5-10.1); Chloride 108 mmol/L (98-107); Creatinine, Serum 2.75 mg/dL (0.55-1.02); EST Glomerular Filtration Rate 19 mL/min (>60); Est Glom Filt Rate - Afr Amer 22 mL/min (>60); Glucose 359 mg/dL (74-106); Phosphorus 3.3 mg/dL (2.5-4.9); Potassium 5.6 mmol/L (3.5-5.1); Sodium Level 139 mmol/L (136-145)
== END | disposition home or self-care (01) ==
LOC: POLAB3 11:39
PROVIDERS: PCP Family Medicine; Visit Provider Internal Medicine Nephrology
DX: N18.4 Chronic kidney disease, stage 4 (severe) (principal)
CPT/HCPCS: 36415; 80069

== ENCOUNTER → 2024-01-15 | Outpatient (CLI) | payer OTHER, SELFPAY ==
[2024-01-15 09:57] LABS: Hematocrit 37.6 % (37-47); Hemoglobin 11.4 g/dL (12.0-15.0); Mean Corp Hgb Conc 30.3 g/dL (32-36); Mean Corpuscular Hgb 29.1 pg (27.0-32.0); Mean Corpuscular Volume 95.9 fL (81-99); Mean Platelet Vol. 10.6 fl (6.2-12.0); Platelet Count 188 K/mm3 (150-450); RBC Distribution Width CV 12.3 % (11.6-14.6); RBC Distribution Width SD 43.2 fl (35.1-43.9); Red Blood Count 3.92 M/mm3 (4.2-5.4); White Blood Count 6.9 K/mm3 (4.4-11.0)
[2024-01-15 10:09] LABS: PTHIN 137.2 pg/mL (18.4-80.1)
[2024-01-15 10:13] LABS: Vitamin B12 753 pg/mL (211-911)
[2024-01-15 10:23] LABS: ALB/GLOB Ratio 0.9 RATIO (0.9-2.4); AST(SGOT) 16 U/L (15-37); Alanine Aminotransfer ALT/SGPT 14 U/L (13-56); Albumin, Serum 3.3 g/dL (3.2-5.0); Alkaline Phosphatase 82 U/L (45-117); Anion Gap 4 (5-15); BUN 33 mg/dL (7-18); BUN/Creat Ratio 11.8 RATIO (10-20); Calcium,Total 9.1 mg/dL (8.5-10.1); Chloride 105 mmol/L (98-107); Cholesterol 145 mg/dL (200); Creatinine, Serum 2.79 mg/dL (0.55-1.02); EST Glomerular Filtration Rate 18 mL/min (>60); Est Glom Filt Rate - Afr Amer 22 mL/min (>60); Globulin 3.5 g/dL (2.2-4.2); Glucose 180 mg/dL (74-106); High Density Lipoprotein 59 mg/dL; Phosphorus 3.7 mg/dL (2.5-4.9); Potassium 4.8 mmol/L (3.5-5.1); Protein, Total 6.8 g/dL (6.4-8.2); Sodium Level 140 mmol/L (136-145); Thyroid Stim Hormone (TSH) 2.34 uIU/mL (0.358-3.74); Triglycerides 132 mg/dL; Very Low Density Lipoprotein 26 mg/dL (5-40)
== END | disposition home or self-care (01) ==
LOC: POLAB3 09:33
PROVIDERS: PCP Family Medicine; Visit Provider Internal Medicine Nephrology
DX: E10.22 Type 1 diabetes mellitus with diabetic chronic kidney disease (principal); E10.69 Type 1 diabetes mellitus with other specified complication; N18.4 Chronic kidney disease, stage 4 (severe)
CPT/HCPCS: 80053; 80061; 82248; 82607; 83970; 84100; 84443; 85027

== ENCOUNTER → 2024-02-02 | Outpatient (CLI) | payer OTHER, SELFPAY ==
--- NOTE | 2024-02-02 14:00 | CT_ITS ---
STUDY: CT CHEST WITHOUT CONTRAST REASON FOR EXAM: Female, 63 years old. Lung nodule RADIATION DOSAGE (If Supplied By Facility): CTDIvol = ( 6.04 ) mGy, DLP = ( 241.68 ) mGycm TECHNIQUE: Transaxial imaging was performed without the administration of intravenous contrast material. Multiplanar coronal and sagittal images were reformatted. Individualized dose optimization techniques were used for this CT. COMPARISON: Comparison is made with prior study August 06, 2023. FINDINGS: CHEST Hyperinflation. Absent disc changes more prominent at the lung apices with the scarring at the lung apices. Stable 3 mm noncalcified nodule in the right upper lobe. This is seen on axial image #34. There is a new partially cystic nodule in the anterior aspect of the left upper lobe as seen on axial image #38. Stable calcified granuloma in the upper anterior aspect of the left lower lobe as seen on axial image #36. There is a new 5.8 mm irregular nodular density seen in the anterior lateral aspect of the left upper lobe as seen on axial image #55. Stable 2 noncalcified nodules in the left lower lobe. There is no demonstrated pleural abnormality. There are calcifications of the coronary arteries. Small calcified mediastinal lymph nodes. Normal hilar regions. Normal unenhanced pulmonary arteries. There is atherosclerotic calcification of the aortic arch and descending thoracic aorta. There are degenerative changes of the thoracic spine. There is no demonstrated abnormality of the visualized upper abdomen. CT/Chest without Contrast IMPRESSION: Since prior study, there is a new partially cystic nodule in the left upper lobe as well as a spiculated nodule in the anterior aspect of the left upper lobe as seen on axial image #55. Correlation with the PET scan recommended. Electronically Signed: Dre Tapia MD at 12:29 EDT ,
== END | disposition home or self-care (01) ==
PROVIDERS: PCP Family Medicine; Referring Provider Nurse Practitioner Acute Care; Visit Provider Nurse Practitioner Acute Care
DX: R91.1 Solitary pulmonary nodule (principal)
CPT/HCPCS: 71250

== ENCOUNTER → 2024-03-02 | Outpatient (CLI) | payer OTHER, SELFPAY ==
--- NOTE | 2024-03-02 08:57 | ART_ITS ---
Reason For Study: PVD Procedure A bilateral lower extremity continuous wave Doppler with analog waveform analysis,segmental pressures,and ankle brachial indexes without exercise. Left Segmental Pressures Left brachial= 171mmHg. Left posterior tibial artery = 186mmHg. Left dorsalis pedis artery = 186mmHg. Left digit = 78 mmHg. The left posterior tibial artery waveforms are triphasic. The left dorsalis pedis waveforms are triphasic. Right Segmental Pressures Right brachial= 166mmHg. Right posterior tibial artery = 179mmHg. Right dorsalis pedis artery = 192mmHg. Right digit = 70 mmHg. The right posterior tibial artery waveforms are biphasic. The right dorsalis pedis waveforms are triphasic. Indices The right ankle brachial index by the posterior tibial artery is 1.05. The right ankle brachial index by the dorsalis pedis is 1.12. The right digital-brachial index is 0.41. The left ankle brachial index by the posterior tibial artery is 1.09. The left ankle brachial index by the dorsalis pedis is 1.09. The left digital-brachial index is 0.46. VL/Lower Ext Art Exam w/o Exercis Interpretation Summary Biphasic and triphasic Doppler waveforms are noted at ankle level on the right. Triphasic Doppler waveforms are noted at ankle level on the left. Pulse-volume recordings are dim inished at digital level bilaterally, but satisfactory at all other levels bilaterally. Resting an kle-brachial indices are normal bilaterally. Digital-brachial indices are moderately diminished bila terally. Arterial flow appears normal at ankle level bilaterally. There is evidence of m oderate arterial occlusive disease at digital level bilaterally. Ordering Physician: Sherice Skelton Referring Physician: Bird Lujan Performed By: Abdulkadir Schaefer, RVT
== END | disposition home or self-care (01) ==
LOC: CVS 08:56
PROVIDERS: PCP Family Medicine; Referring Provider Podiatrist; Visit Provider Podiatrist
DX: I73.9 Peripheral vascular disease, unspecified (principal)
CPT/HCPCS: 93923

== ENCOUNTER 2024-04-14 21:04 | Emergency (ER) | payer OTHER, SELFPAY ==
[2024-04-14 21:04] VITALS: BP 197/94; PULSE 101; RESP 22; TEMP 36.3; O2SAT 99; BMI 15.0
[2024-04-14 22:43] VITALS: BP 195/88; PULSE 88; RESP 25; O2SAT 100
--- NOTE | 2024-04-14 22:45 | EKG12_ITS ---
Test Reason : SOB Blood Pressure : / mmHG Vent. Rate : 088 BPM Atrial Rate : 088 BPM P-R Int : 140 ms QRS Dur : 074 ms QT Int : 360 ms P-R-T Axes : 083 -69 084 degrees QTc Int : 435 ms Normal sinus rhythm Left axis deviation Possible Anteroseptal infarct , age undetermined Abnormal ECG Confirmed by MODESTO DAIGLE, NICOLA ([id number]), health editor [place] ([id number]) on 04/19/2024 11:39:50 AM Referred By: WILLARD Confirmed By:NICOLA SALVADOR MD
[2024-04-14 22:46] VITALS: O2SAT 100
--- NOTE | 2024-04-14 23:05 | RAD_ITS ---
EXAM: XR CHEST, 2 VIEWS CLINICAL INDICATION: dyspnea TECHNIQUE: Frontal and lateral views of the chest. COMPARISON: No relevant prior studies available. FINDINGS: LUNGS AND PLEURAL SPACES: Calcified granulomas at the left upper lobe. Biapical fibrotic changes. Emphysema. No consolidation. Bibasilar pleural parenchymal scarring. No pneumothorax. No effusion. HEART: Unremarkable. Cardiac silhouette not enlarged. MEDIASTINUM: Central airways and mediastinal contour are unremarkable. BONES/JOINTS: Unremarkable. No acute fracture. SOFT TISSUES: Unremarkable. RAD/Chest PA and Lateral IMPRESSION: 1. No acute cardiopulmonary disease. 2. Old granulomatous disease. 3. Emphysema. Electronically Signed: Kalia Thomas MD at 0:34 EDT ,
[2024-04-14 23:08] LABS: Absolute Neutrophil Count 2.6 X10^3/uL (2.0-7.7); Basophil# 0.05 X10^3/uL; Basophil% 1.1 % (0-1); Eosinophil# 0.22 X10^3/uL; Hematocrit 28.2 % (37-47); Hemoglobin 8.4 g/dL (12.0-15.0); Lymphocyte % 27.1 % (19-41); Mean Corp Hgb Conc 29.8 g/dL (32-36); Mean Corpuscular Hgb 28.9 pg (27.0-32.0); Mean Corpuscular Volume 96.9 fL (81-99); Mean Platelet Vol. 10.5 fl (6.2-12.0); Monocyte# 0.35 X10^3/uL; Monocyte% 7.9 % (0-10); NRBC Flagged by Analyzer 0 % (0-5); Neutrophil % 58.7 % (47-70); Platelet Count 126 K/mm3 (150-450); RBC Distribution Width CV 12.7 % (11.6-14.6); Red Blood Count 2.91 M/mm3 (4.2-5.4); White Blood Count 4.4 K/mm3 (4.4-11.0)
[2024-04-14] MEDS: Labetalol (Compound) 20 MG/4 ML SYRINGE 10 MG IV (23:14)
[2024-04-14] MEDS: LORazepam 2 MG/ML Syringe 1 MG IV (23:14)
[2024-04-14 23:26] LABS: Anion Gap 0 (5-15); BUN 30 mg/dL (7-18); BUN/Creat Ratio 12.4 RATIO (10-20); Calcium,Total 8.8 mg/dL (8.5-10.1); Chloride 102 mmol/L (98-107); Creatinine, Serum 2.42 mg/dL (0.55-1.02); EST Glomerular Filtration Rate 21 mL/min (>60); Est Glom Filt Rate - Afr Amer 26 mL/min (>60); Estimated Creatinine Clearance 15.74 ml/min; Glucose 187 mg/dL (74-106); Magnesium 1.6 mg/dL (1.6-2.6); Potassium 4.6 mmol/L (3.5-5.1); Sodium Level 140 mmol/L (136-145); Troponin-I HS 20 pg/mL (3.0-54.0)
[2024-04-15] VITALS: BP 133/116; PULSE 74; RESP 15; O2SAT 100
--- NOTE | 2024-04-15 00:51 | EX.ED.DYSGE1 ---
HPI History of Present Illness Chief Complaint: Shortness of Breath Informant: patient and spouse/S.O. Narrative Narrative: Patient is a 63-year-old female with past medical history of type 1 diabetes chronic kidney disease hypertension hyperlipidemia and COPD on chronic 3 L nasal cannula oxygen. She states that her need for supplemental oxygen is relatively new and that she continues to smoke. She states that despite wearing her oxygen show period of time where she feels like she cannot breathe. She states that there is no associated chest discomfort or palpitations associated with this. She denies any fevers or chills. She denies any known sick contacts. She states that when the symptoms occur she also has increased anxiety. She states she feels the episodes have been more frequent recently and secondary to this comes in for evaluation [facility] Medical History Fissure in skin of foot [place]'s sign present Tobacco abuse CKD (chronic kidney disease) stage 4, GFR 15-29 ml/min Body mass index (BMI) less than 16.5 Underweight Polyneuropathy due to type 1 diabetes mellitus Stage 4 chronic kidney disease due to type 1 diabetes mellitus Respiratory failure with hypoxia Smoking greater than 30 pack years Anemia Hypocalcemia Diabetic nephropathy, type I Hyperkalemia Renal insufficiency Diabetes Chronic obstructive pulmonary disease Essential (primary) hypertension Hypersomnia Anxiety Depression Atherosclerosis of coronary artery of [place] heart without angina pectoris NSTEMI (non-ST elevated myocardial infarction) (01/12/18) DM type 1 (diabetes mellitus, type 1) Hyperlipidemia COPD (chronic obstructive pulmonary disease) Home Medications ?Medication ?Instructions ?Recorded ?Last Taken ?Type simvastatin 40 mg tablet 40 mg PO QHS cholesterol 06/21/18 06/20/18 20:00 History albuterol sulfate 2.5 mg/3 mL 2.5 mg (3 mL) inhalation Q2H PRN 06/23/18 Unknown Rx (0.083 %) solution for nebulization PRN dyspnea, wheezing ##1 aspirin 81 mg tablet,delayed 81 mg PO DAILY 12/31/19 Unknown History release pen needle, diabetic 32 gauge x ##1 08/29/20 Unknown Rx flash glucose scanning reader #1 ea 11/20/20 Unknown Rx (FreeStyle Eileen 2 [place]) gabapentin 800 mg tablet 800 mg PO QHS 02/17/23 Unknown History blood sugar diagnostic (FreeStyle #25 ea 08/26/23 Unknown Rx Precision Jeff Strips) clopidogrel 75 mg tablet 75 mg PO DAILY #90 tabs 08/26/23 Unknown Rx metoprolol tartrate 50 mg tablet See Rx Instructions .Route 08/26/23 Unknown Rx .COMPLEX #180 tabs FreeStyle Eileen 2 Sensor (flash #6 ea 08/27/23 Unknown Rx glucose sensor) nitroglycerin 0.4 mg sublingual 0.4 mg sublingual Q5-15M PRN chest 10/19/23 Unknown Rx tablet pain #25 tabs fluticasone fur. 200 mcg-umeclid 1 inh inhalation DAILY #3 device 10/29/23 Unknown Rx 62.5 mcg-vilant 25 mcg inhalat.powder (Trelegy Ellipta) blood-glucose sensor (Dexcom G6 #3 ea 12/03/23 Unknown Rx Sensor device) blood-glucose transmitter (Dexcom #1 ea 12/03/23 Unknown Rx G6 Transmitter device) insulin pump cart,automated,BT #10 ea 12/03/23 Unknown Rx (Omnipod 5 G6 Pods (Gen 5) subcutaneous cartridge) insulin pump cartridge,automated #1 ea 12/03/23 Unknown Rx dose,BT with controller subcutaneous (Omnipod 5 G6 Intro Kit (Gen 5) subcutaneous cartridge with controller) oxygen NASAL 12/03/23 Unknown History insulin lispro 100 unit/mL 60 unit (0.6 mL) continuous 12/17/23 Unknown Rx subcutaneous solution (Humalog subcutaneous infusion .continuous U-100 Insulin) #54 mL guaifenesin 1,200 mg tablet, 1,200 mg PO Q12H #60 tabs 12/29/23 Unknown Rx extended release 12 hr ipratropium 0.5 mg-albuterol 3 mg 3 ml inhalation Q4H PRN PRN SOB 12/29/23 Unknown Rx (2.5 mg base)/3 mL nebulization &/OR WHEEZING #180 mL soln albuterol sulfate 90 mcg/actuation 2 puff inhalation Q6H PRN PRN 01/26/24 Unknown Rx aerosol inhaler Cough #8.5 grams mirtazapine 7.5 mg tablet 7.5 mg PO QHS 04/14/24 Unknown History sodium polystyrene sulfonate 15 ml PO 04/14/24 Unknown History gram-sorbitol 20 gram/60 mL oral susp (SPS (with sorbitol)) buspirone 7.5 mg tablet 7.5 mg PO BID 30 days #60 tabs 04/15/24 Unknown Rx metoprolol tartrate 50 mg tablet 50 mg PO BID 14 days #28 tabs 04/15/24 Unknown Rx Allergy/AdvReac Type Severity Reaction Status Date / Time No Known Allergies Allergy Verified 04/14/24 21:05 Family History Mother Heart disease COPD (chronic obstructive pulmonary disease) Lupus Daughter Growth disorder Down syndrome Fibromyalgia Grandfather Colon cancer Diabetes Grandmother Heart disease CVA (cerebral vascular accident) Diabetes Pulmonary disease Sister Hypertension Kidney disease Surgical History H/O: Hx of appendectomy H/O: hysterectomy History of coronary artery stent placement (02/04/18) Social History housing: house pets and animals: Yes pets and animals: cat(s) Smoking Status: Current every day smoker tobacco type: cigarettes alcohol intake: never substance use type: does not use caffeine: Yes Type: carbonated beverages Number of servings: 4 what type of physical activity do you participate in: none seatbelt use: always do you feel safe at home: Yes ROS ROS ED Constitutional Constitutional ED: Denies chills or fever(s) Eyes Eyes: Denies change in vision ENT ENT ED: Denies sore throat Cardiovascular Cardiovascular: Denies chest pain, palpitations or racing heartbeat Respiratory/Chest Respiratory/Chest: Reports cough and dyspnea Gastrointestinal Gastrointestinal: Denies abdominal pain, diarrhea, nausea or vomiting Genitourinary Genitourinary ED: Denies dysuria Musculoskeletal Musculoskeletal: Denies myalgias Integumentary Denies rash Neurologic Neurologic: Denies headache(s) Psychiatric Psychiatric: Reports anxiety Hematologic/Lymphatic Hematologic/Lymphatic: Denies easy bleeding or easy bruising EXAM Physical Exam Const Vital Signs: 04/14/24 22:43 04/14/24 22:46 04/15/24 00:00 Temperature Pulse Rate 88 74 Respiratory Rate 25 H 15 Respiratory Effort Normal Non-Labored Respiratory Depth Normal Respiratory Pattern Tachypnea Blood Pressure 195/88 H 133/116 H Blood Pressure Mean 123 121 Pulse Ox 100 100 Oxygen Delivery Method Nasal Cannula Nasal Cannula Nasal Cannula Oxygen Flow Rate (L/min) 3 3 3 06 01:03 Temperature 97.5 F L Pulse Rate 70 Respiratory Rate 19 H Respiratory Effort Respiratory Depth Respiratory Pattern Blood Pressure 123/64 H Blood Pressure Mean 83 Pulse Ox 99 Oxygen Delivery Method Oxygen Flow Rate (L/min) Positive well nourished and well developed General Appearance ED: well developed; Negative for pallor HEENT HEENT Narrative: No tongue or lip swelling no oral lesions no airway edema or compromise Eyes PERRL and EOMs intact bilaterally General Eye ED: Negative for pale conjunctiva or scleral icterus Neck supple and no JVD Neck Narrative: No nuchal rigidity or meningeal signs Chest Wall palpation of chest normal Chest Narrative: No bony deformity or crepitance of the chest wall noted Resp normal respiratory effort Resp Narrative: Breath sounds are diminished throughout with diffuse expiratory wheeze consistent with history of COPD/emphysema. However no nasal flaring retractions tachypnea or accessory muscle use. Cardio regular rate and regular rhythm Rate: other Other Details: Heart is regular rate and rhythm Radial and carotid pulses are equal and symmetric GI normal to inspection, nondistended, normoactive bowel sounds, non-tender, non-distended and no masses GI Narrative: No voluntary guarding or rigidity or pulsatile mass No fluid wave noted Auscultation: normoactive bowel sounds Palpation: soft Extremity normal to inspection Extremity Narrative: No asymmetric edema no pitting edema negative Homans' sign bilaterally Neuro oriented x3, CN's II-XII intact bilaterally and no sensory deficits noted Neuro Narrative: Cranial nerves II through XII are grossly intact no focal neurologic deficit. No pronator drift no dysmetria no truncal ataxia NIH stroke scale score of 0 Sensorium / Orientation: alert Motor Exam: strength 5/5 throughout Psych Psych Narrative: Patient has a nervous/anxious affect Skin no rashes or lesions noted General Skin Exam: Negative for jaundice or pallor MDM MDM MDM Narrative Medical decision making narrative: Patient arrived to the ER hypertensive but has a past medical history of this and had physical exam findings most consistent with anxiety exacerbation. I felt this was the driving cause for her increased shortness of breath and hypertension. However as differential diagnosis is also for pneumonia versus pneumothorax versus COPD exacerbation versus acute on chronic kidney injury versus acute coronary syndrome I did elect to perform a basic cardiac workup. Chest x-ray revealed COPD/emphysema changes without acute pathology. Labs revealed a normal troponin and EKG going against acute coronary syndrome. Blood work did show anemia with hemoglobin of 8.4 but chart review reveals this is chronic in nature per patient and she states that there is been no loss of blood in urine or stool. Within the treatment of the anxiety her shortness of breath resolved and her blood pressure improved as well. Therefore at this time she does not have signs of endorgan damage or acute coronary syndrome or pneumonia or pneumothorax and symptoms have improved with treatment and therefore do not feel there is need for admission or further observation in the ER and she is otherwise safe for discharge History & Record Review Discussion w/independent historian: Patient and Significant other Lab Data Attestation: I reviewed the patient's lab results. Labs: Laboratory Results - last 24 hr 04/14/24 23:00 WBC 4.4 RBC 2.91 L Hgb 8.4 L Hct 28.2 L MCV 96.9 MCH 28.9 MCHC 29.8 L RDW Std Deviation 45.0 H RDW Coeff of Iron 12.7 Plt Count 126 L MPV 10.5 Immature Gran % (Auto) 0.200 Neut % (Auto) 58.7 Lymph % (Auto) 27.1 [place] % (Auto) 7.9 Eos % (Auto) 5.0 Baso % (Auto) 1.1 H Absolute Neuts (auto) 2.6 Absolute Lymphs (auto) 1.20 Nucleated RBC % 0 Sodium 140 Potassium 4.6 Chloride 102 Carbon Dioxide 38.0 H Anion Gap 0 L BUN 30 H Creatinine 2.42 H Estim Creat Clear Calc 15.74 Est GFR (MDRD) Af Amer 26 L Est GFR (MDRD) Non-Af 21 L BUN/Creatinine Ratio 12.4 Glucose 187 H Calcium 8.8 Magnesium 1.6 Troponin I High Sens 20 Radiography Diagnostic Testing: Clinical Impression(s) from Imaging Studies Chest X-Ray 04/14/24 23:05 IMPRESSION: 1. No acute cardiopulmonary disease. 2. Old granulomatous disease. 3. Emphysema. Electronically Signed: Kalia Thomas MD at 0:34 EDT , Chest x-ray as interpreted by the emergency medicine physician reveals emphysema changes without acute infiltrate pneumothorax pleural effusion or widening the mediastinum Discharge Plan Triage Chief Complaint: Shortness of Breath ED Provider: Kalia Baeza Dx/Rx/DC Orders Clinical Impression: Acute exacerbation of chronic obstructive pulmonary disease, Hypertension, CKD (chronic kidney disease) stage 4, GFR 15-29 ml/min, Nicotine abuse, Diabetes Instructions: COPD: Wheezing and Chest Tightness, ED Hypertension, Established Prescriptions: New metoprolol tartrate 50 mg tablet 50 mg PO BID 14 Days Qty: 28 0RF buspirone 7.5 mg tablet 7.5 mg PO BID 30 Days Qty: 60 0RF No Action aspirin 81 mg tablet,delayed release (DR/EC) 81 mg PO DAILY (DME) FreeStyle Eileen 2 [place] Misc See Rx Instructions .ROUTE .MEDSUPPLY Qty: 1 0RF Rx Instructions: As directed gabapentin 800 mg tablet 800 mg PO QHS Trelegy Ellipta 200-62.5-25 mcg blister with device 1 inh inhalation DAILY Qty: 3 3RF oxygen NASAL Rx Instructions: 3 l (DME) Omnipod 5 G6 Pods (Gen 5) Cartridge See Rx Instructions .Route Qty: 10 5RF Rx Instructions: 1 pod 72 hours (DME) Omnipod 5 G6 Intro Kit (Gen 5) Cartridge See Rx Instructions .Route Qty: 1 0RF Rx Instructions: x1 (DME) Dexcom G6 Sensor Device See Rx Instructions .Route Qty: 3 5RF Rx Instructions: 1 sensor q 10 days (DME) Dexcom G6 Transmitter Device See Rx Instructions .Route Qty: 1 1RF Rx Instructions: 1 transmitter q 90 days simvastatin 40 MG tablet 40 mg PO QHS albuterol sulfate 2.5 MG/3 ML solution for nebulization 2.5 mg INHALATION Q2H PRN PRN (Reason: dyspnea, wheezing) Qty: 1 0RF (DME) pen needle, diabetic 1 EACH needle 1 ea MC ACHS Qty: 1 0RF mirtazapine 7.5 mg tablet 7.5 mg PO QHS SPS (with sorbitol) 15-20 gram/60 mL suspension PO metoprolol tartrate 50 mg tablet See Rx Instructions .ROUTE .COMPLEX Qty: 180 3RF Dose Instruction: TAKE 1 TABLET BY MOUTH TWICE A DAY Rx Instructions: TAKE 1 TABLET BY MOUTH TWICE A DAY (DME) FreeStyle Precision Jeff Strips Strip See Rx Instructions .Route Qty: 25 6RF Rx Instructions: As directed clopidogrel 75 mg tablet 75 mg PO DAILY Qty: 90 3RF (DME) FreeStyle Eileen 2 Sensor Kit See Rx Instructions .ROUTE .MEDSUPPLY Qty: 6 1RF Rx Instructions: 1 sensor q 14 days nitroglycerin 0.4 mg tablet, sublingual 0.4 mg SUBLINGUAL Q5-15M PRN (Reason: chest pain) Qty: 25 3RF Rx Instructions: until response; do not exceed 3 doses per episode insulin lispro [Humalog U-100 Insulin] 100 unit/mL solution 60 unit continuous subcutaneous infusion .continuous Qty: 54 1RF Rx Instructions: via insulin pump ipratropium-albuterol 0.5 mg-3 mg(2.5 mg base)/3 mL solution for nebulization 3 ml inhalation Q4H PRN PRN (Reason: SOB &/OR WHEEZING) Qty: 180 6RF guaifenesin 1,200 mg tablet extended release 12hr 1,200 mg PO Q12H Qty: 60 6RF albuterol sulfate 90 mcg/actuation HFA aerosol inhaler 2 puff INHALATION Q6H PRN PRN (Reason: Cough) Qty: 8.5 2RF Primary Care Provider: Bird Lujan Referrals: Bird Lujan MD [Primary Care Provider] - Print Language: Panamanian Disposition Disposition: Home, Self Care Discharge Date/Time: 04/15/24 01:04
[2024-04-15 01:03] VITALS: BP 123/64; PULSE 70; RESP 19; TEMP 36.4; O2SAT 99
== END 2024-04-15 01:04 | disposition home or self-care (01) ==
PROVIDERS: Emergency Provider Emergency Medicine; PCP Family Medicine; Visit Provider Emergency Medicine
DX: J44.1 Chronic obstructive pulmonary disease with (acute) exacerbation (principal); N18.4 Chronic kidney disease, stage 4 (severe); I24.9 Acute ischemic heart disease, unspecified; E10.42 Type 1 diabetes mellitus with diabetic polyneuropathy; E10.22 Type 1 diabetes mellitus with diabetic chronic kidney disease; Z79.4 Long term (current) use of insulin; I12.9 Hypertensive chronic kidney disease with stage 1 through stage 4 chronic kidney disease, or unspecified chronic kidney disease; I25.2 Old myocardial infarction; I25.10 Atherosclerotic heart disease of native coronary artery without angina pectoris; Z79.82 Long term (current) use of aspirin; Z79.51 Long term (current) use of inhaled steroids; Z79.899 Other long term (current) drug therapy; Z79.01 Long term (current) use of anticoagulants
CPT/HCPCS: 71046; 80048; 83735; 84484; 85025; 93005; 96374; 96375; 99283; A4216

== ENCOUNTER → 2024-04-21 | Outpatient (CLI) | payer OTHER, SELFPAY ==
[2024-04-21 17:49] LABS: 24 Hour Urine Protein 2261.5 mg/24HR (<150 MG/24HR); 24HR. UA Prot. Total Volume 1725 mL; 24HR. Urine Creatinine 0.62 g/24 HR (0.70-1.90); Urine Protein (24 Hour) 131.1 mg/dL (<11.9)
== END | disposition home or self-care (01) ==
PROVIDERS: PCP Family Medicine; Referring Provider Internal Medicine Nephrology; Visit Provider Internal Medicine Nephrology
DX: N18.4 Chronic kidney disease, stage 4 (severe) (principal); N25.81 Secondary hyperparathyroidism of renal origin; D50.9 Iron deficiency anemia, unspecified
CPT/HCPCS: 81050; 82570; 84156

== ENCOUNTER → 2024-05-05 | Outpatient (CLI) | payer OTHER, SELFPAY ==
--- NOTE | 2024-05-05 09:16 | CT_ITS ---
EXAM: CT CHEST WITHOUT INTRAVENOUS CONTRAST CLINICAL INDICATION: lung nodules TECHNIQUE: Helically acquired images were obtained of the chest without intravenous contrast. This CT exam was performed using one or more of the following dose reduction techniques: automated exposure control, adjustment of the mA and/or kV according to patient size, and/or use of iterative reconstruction technique. COMPARISON: CT Chest dated 02/02/2024 and 08/06/2023 FINDINGS: LUNGS AND PLEURAL SPACES: Prominent diffuse centrilobular emphysematous changes of the lungs again noted. Previously noted cavitary 8 mm nodule is more solid on the current exam but unchanged in size. New small focus of groundglass density within the left upper lobe measuring 8 mm in diameter which is likely inflammatory. No other interval change in the scattered bilateral pulmonary nodules throughout both lungs. No pleural effusion or thickening. No pneumothorax. HEART: Stable normal heart size. Coronary artery calcification and stents again seen. MEDIASTINUM: Normal. No mediastinal or hilar adenopathy. Esophagus is unremarkable. No hiatal hernia. BONES/JOINTS: No suspicious lytic or blastic abnormality. VASCULATURE: No aortic aneurysm. CT/Chest without Contrast IMPRESSION: 1. Extensive pulmonary emphysema. 2. No significant change in the bilateral pulmonary nodules. 3. New 8 mm groundglass density left upper lobe which is likely inflammatory. Electronically Signed: Diogenes Mishra MD at 10:51 EDT ,
== END | disposition home or self-care (01) ==
LOC: CT 09:14
PROVIDERS: PCP Family Medicine; Referring Provider Nurse Practitioner Acute Care; Visit Provider Nurse Practitioner Acute Care
DX: R91.8 Other nonspecific abnormal finding of lung field (principal)
CPT/HCPCS: 71250

== ENCOUNTER 2024-05-20 08:54 | Outpatient (CLI) | payer OTHER, SELFPAY ==
--- NOTE | 2024-05-20 09:00 | BD_ITS ---
STUDY: DUAL ENERGY X-RAY ABSORPTIOMETRY / DXA REASON FOR EXAM: Female, 63 years old. Z13.820 - Encounter for screening for osteoporosis TECHNIQUE: Bone Mineral Density (BMD) measurements of lumbar spine and bilateral hips were obtained. COMPARISON: None. FINDINGS: Lumbar Spine (L1-L4): g/cm2 (0.821) / T-score (-1.8) / Z-score (-0.1) Findings are suggestive of osteopenia with a moderate fracture risk. Left Femur Total: g/cm2 (0.489) / T-score (-3.7) / Z-score (-2.5) Left Femoral Neck: g/cm2 (0.496) / T-score (-3.2) / Z-score (-1.7) Right Femur Total: g/cm2 (0.525) / T-score (-3.4) / Z-score (-2.2) Right Femoral Neck: g/cm2 (0.528) / T-score (-2.9) / Z-score (-1.4) . BD/Dexa Bone Density Study IMPRESSION: The patient is considered osteoporotic as outlined below according to World Brooks Organization (WHO) criteria with a high fracture risk. Reference Information: The T-score is the number of standard deviations above or below the standard which is normal for young adults at their peak bone mineral density. The World Health Organization (WHO) interprets the T-scores as follows: Above -1 Normal bone density Between -1 and -2.5 Osteopenia Equal to / or below -2.5 Osteoporosis As a practical clinical guideline, osteopenia may be graded as follows: Mild -1 through -1.5 Moderate -1.6 through -2.0 Severe -2.1 through -2.4 The Z-score is the number of standard deviations above or below age-matched controls. A Z-score of less than -1.5 would be considered abnormal. References: 1. NIH Osteoporosis and Related Bone Diseases www osteo.org 2. International Society for Clinical Densitometry www iscd.org 3. National Osteoporosis Foundation www nof.org Electronically Signed: Dre Tapia MD at 8:04 EDT ,
== END 2024-05-20 23:59 | disposition home or self-care (01) ==
LOC: OPBD 08:55
PROVIDERS: PCP Family Medicine; Referring Provider Nurse Practitioner Family; Visit Provider Nurse Practitioner Family
DX: Z13.820 Encounter for screening for osteoporosis (principal); M85.89 Other specified disorders of bone density and structure, multiple sites
CPT/HCPCS: 77080

== ENCOUNTER 2024-07-23 21:22 | Inpatient (IN) | payer OTHER, SELFPAY ==
[2024-07-23 21:23] VITALS: BP 111/45; PULSE 66; RESP 26; TEMP 36.1; O2SAT 100
[2024-07-23 21:54] LABS: Bedside Glucose 163 mg/dL (74-106)
--- NOTE | 2024-07-23 21:57 | EKG12_ITS ---
Test Reason : DYSRHYTHMIA Blood Pressure : / mmHG Vent. Rate : 061 BPM Atrial Rate : 061 BPM P-R Int : 146 ms QRS Dur : 072 ms QT Int : 486 ms P-R-T Axes : 082 -67 011 degrees QTc Int : 489 ms Normal sinus rhythm Left axis deviation Septal infarct (cited on or before 26-AUG-2020) Abnormal ECG Confirmed by Saroj Lemos ([id number]), legal editor [place] ([id number]) on 07/26/2024 10:49:44 AM Referred By: Confirmed By:Saroj Lemos
--- NOTE | 2024-07-23 21:59 | EX.ED.DYSGE1 ---
HPI History of Present Illness Chief Complaint: Shortness of Breath Informant: patient and spouse/S.O. Narrative Narrative: 63-year-old female type I diabetic gradual onset of basically malaise for the past week and increased wheezing/dyspnea. No fevers or chills. No chest pain but she agrees that her lungs are been feeling tight lately. She has trouble doing her nebulizer at home because it has a mask and makes her feel claustrophobic but she does have an albuterol MDI that she has been using off and on. She denies any other known systemic symptoms except for her blood sugar going up and down today. states it has been in the 200s and as low as of 40s when she feels poorly. On home oxygen 3L. [facility] Medical History Fissure in skin of foot [place]'s sign present Tobacco abuse CKD (chronic kidney disease) stage 4, GFR 15-29 ml/min Body mass index (BMI) less than 16.5 Underweight Polyneuropathy due to type 1 diabetes mellitus Stage 4 chronic kidney disease due to type 1 diabetes mellitus Respiratory failure with hypoxia Smoking greater than 30 pack years Anemia Diabetic nephropathy, type I Hyperkalemia Renal insufficiency Diabetes Chronic obstructive pulmonary disease Essential (primary) hypertension Hypersomnia Anxiety Depression Atherosclerosis of coronary artery of n[place]ol[place] heart without angina pectoris NSTEMI (non-ST elevated myocardial infarction) (01/12/18) DM type 1 (diabetes mellitus, type 1) Hyperlipidemia COPD (chronic obstructive pulmonary disease) Home Medications ?Medication ?Instructions ?Recorded ?Last Taken ?Type simvastatin 40 mg tablet 40 mg PO QHS cholesterol 06/21/18 06/20/18 20:00 History albuterol sulfate 2.5 mg/3 mL 2.5 mg (3 mL) inhalation Q2H PRN 06/23/18 Unknown Rx (0.083 %) solution for nebulization PRN dyspnea, wheezing ##1 aspirin 81 mg tablet,delayed 81 mg PO DAILY 12/31/19 Unknown History release pen needle, diabetic 32 gauge x ##1 08/29/20 Unknown Rx flash glucose scanning reader #1 ea 11/20/20 Unknown Rx (FreeStyle [place]ileen 2 [place]) gabapentin 800 mg tablet 800 mg PO QHS 02/17/23 Unknown History blood sugar diagnostic (FreeStyle #25 ea 08/26/23 Unknown Rx Precision Jeff Strips) clopidogrel 75 mg tablet 75 mg PO DAILY #90 tabs 08/26/23 Unknown Rx FreeStyle Eileen 2 Sensor (flash #6 ea 08/27/23 Unknown Rx glucose sensor) nitroglycerin 0.4 mg sublingual 0.4 mg sublingual Q5-15M PRN chest 10/19/23 Unknown Rx tablet pain #25 tabs oxygen NASAL 12/03/23 Unknown History ipratropium 0.5 mg-albuterol 3 mg 3 ml inhalation Q4H PRN PRN SOB 12/29/23 Unknown Rx (2.5 mg base)/3 mL nebulization &/OR WHEEZING #180 mL soln buspirone 7.5 mg tablet 7.5 mg PO BID 30 days #60 tabs 04/15/24 Unknown Rx albuterol sulfate 90 mcg/actuation 2 puff inhalation Q6H PRN PRN 05/05/24 Unknown Rx aerosol inhaler Cough #8.5 grams blood-glucose sensor (Dexcom G6 #3 ea 05/12/24 Unknown Rx Sensor device) blood-glucose transmitter (Dexcom #1 ea 05/12/24 Unknown Rx G6 Transmitter device) metoprolol tartrate 50 mg tablet 50 mg PO BID #180 tabs 05/12/24 Unknown Rx insulin lispro 100 unit/mL 60 unit (0.6 mL) continuous 05/28/24 Unknown Rx subcutaneous solution (Humalog subcutaneous infusion .continuous U-100 Insulin) #54 mL insulin pump cart,automated,BT #10 ea 05/31/24 Unknown Rx (Omnipod 5 G6 Pods (Gen 5) subcutaneous cartridge) denosumab 60 mg/mL subcutaneous 60 mg subcut [id number] #1 mL 06/10/24 Unknown Rx syringe (Prolia) budesonide 160 mcg-glycopyr 9 2 inh inhalation BID #10.7 grams 07/20/24 Unknown Rx mcg-formot 4.8 mcg/actuation HFA inhaler (Breztri Aerosphere) Allergy/AdvReac Type Severity Reaction Status Date / Time No Known Allergies Allergy Verified 07/23/24 21:27 Family History Mother Heart disease COPD (chronic obstructive pulmonary disease) Lupus Daughter Growth disorder Down syndrome Fibromyalgia Grandfather Colon cancer Diabetes Grandmother Heart disease CVA (cerebral vascular accident) Diabetes Pulmonary disease Sister Hypertension Kidney disease Surgical History H/O: Hx of appendectomy H/O: hysterectomy History of coronary artery stent placement (02/04/18) Social History housing: house pets and animals: Yes pets and animals: cat(s) Smoking Status: Current every day smoker tobacco type: cigarettes alcohol intake: never substance use type: does not use caffeine: Yes Type: carbonated beverages Number of servings: 4 what type of physical activity do you participate in: none seatbelt use: always do you feel safe at home: Yes ROS ROS ED Constitutional Constitutional ED: Reports fatigue and malaise; Denies chills or fever(s) Eyes Eyes: Denies change in vision or diplopia ENT ENT ED: Denies rhinorrhea or sore throat Cardiovascular Cardiovascular: Denies chest pain, orthopnea or palpitations Respiratory/Chest Respiratory/Chest: Reports cough, dyspnea and dyspnea on exertion; Denies orthopnea or sputum Gastrointestinal Gastrointestinal: Denies abdominal pain, diarrhea, nausea or vomiting Genitourinary Genitourinary ED: Reports other Details: Decreased urine output ; Denies dysuria or hematuria Musculoskeletal Musculoskeletal: Denies back pain or neck pain Integumentary Denies abscess or rash Neurologic Neurologic: Denies headache(s), paresthesias or weakness Psychiatric Psychiatric: Denies anxiety or suicidal thoughts EXAM Physical Exam Const Vital Signs: 07/23/24 21:23 07/23/24 22:00 07/23/24 22:26 Temperature 97 F L 97.9 F Temperature Source Temporal Temporal Pulse Rate 66 62 67 Respiratory Rate 26 H 24 H 17 Respiratory Effort Respiratory Depth Respiratory Pattern Tachypnea Blood Pressure 111/45 L 115/93 H Blood Pressure Mean 67 100 Pulse Ox 100 98 Oxygen Delivery Method Nasal Cannula Nasal Cannula Oxygen Flow Rate (L/min) 3 3 07/23/24 22:28 07/23/24 22:28 07/23/24 23:00 Temperature 97.9 F Temperature Source Temporal Pulse Rate 64 Respiratory Rate 20 H Respiratory Effort Short of Breath Respiratory Depth Shallow Respiratory Pattern Tachypnea Blood Pressure 142/70 H Blood Pressure Mean 94 Pulse Ox 100 Oxygen Delivery Method Room Air Nasal Cannula Nasal Cannula Oxygen Flow Rate (L/min) 3 3 Positive well nourished and well developed General Appearance ED: well developed and NAD HEENT Reports moist mucous membranes normocephalic and atraumatic Eyes PERRL and EOMs intact bilaterally Neck full ROM and supple Resp normal respiratory effort Resp Narrative: Diffuse end expiratory wheezes with prolonged expiratory phase, breath sound symmetric bilaterally. No respiratory distress. Very diminished throughout but symmetric. No rales or rhonchi. Cardio regular rate, regular rhythm and no murmurs GI non-tender and non-distended GI Narrative: Insulin pump site right mid abdomen benign Auscultation: normoactive bowel sounds Palpation: soft Back/Spine no CVA tenderness General Back: other FROM Extremity normal to inspection General Extremety ED: Negative for edema, pulses abnormal or tenderness General Extremity: Negative for edema or pulses abnormal Neuro oriented x3, CN's II-XII intact bilaterally and no sensory deficits noted Sensorium / Orientation: awake and alert Motor Exam: strength 5/5 throughout Psych mental status grossly normal Skin no rashes or lesions noted and no wounds MDM MDM MDM Narrative Medical decision making narrative: Labs show an extremely low calcium, I slightly elevated potassium for which the patient had minimal if any EKG changes in the form of peaked T waves only, worsening renal failure, which is probably causing her progressively lowering hemoglobin, now at 7.0, at 8.4 around 3 months ago, she is having no symptoms of GI bleeding, and her COVID test came back positive. Also considering slightly worse COPD symptoms than she is used to with regards to wheezing but does not meet criteria for COPD exacerbation since she has no increased or change in sputum, she was given some nebulizer treatments by respiratory which really helped open her up and allow her to breathe a little better. Two-view chest x-ray my interpretation shows COPD but no acute consolidation or infiltrate. Radiology added that she could have some pulmonary edema with interstitial fluid, clinically that is not how she is examining and she has no orthopnea to suggest that as well. Given her renal failure, anemia, and electrolyte dysfunction, I think she will benefit from being admitted to the hospital. Furthermore I recommend a blood transfusion. I discussed the pros and cons with the patient as well as all the risks, she is understanding and consents to getting a blood transfusion. That is ordered, as well as IV fluids to help bring her mild hyperkalemia down, and a dose of calcium gluconate to help boost her calcium up. I am adding liver enzymes so that we can get an albumin to put this in the context, and discussed with hospitalist for PCU admission. She is stable clinically. Lab Data Attestation: I reviewed the patient's lab results. Labs: Laboratory Results - last 24 hr 07/23/24 07/23/24 07/23/24 21:36 22:23 22:52 WBC 6.5 RBC 2.47 L Hgb 7.0 L Hct 24.0 L MCV 97.2 MCH 28.3 MCHC 29.2 L RDW Std Deviation 48.6 H RDW Coeff of Iron 13.5 Plt Count 182 MPV 10.2 Immature Gran % (Auto) 0.600 Neut % (Auto) 65.5 Lymph % (Auto) 21.1 Schleicher % (Auto) 7.7 Eos % (Auto) 4.6 Baso % (Auto) 0.5 Absolute Neuts (auto) 4.2 Absolute Lymphs (auto) 1.37 Nucleated RBC % 0 Sodium 134 L Potassium 5.4 H Chloride 101 Carbon Dioxide 29.0 Anion Gap 4 L BUN 44 H Creatinine 3.66 H Est GFR (MDRD) Af Amer 16 L Est GFR (MDRD) Non-Af 13 L BUN/Creatinine Ratio 12.0 Glucose 146 H Calcium 5.4 L* Troponin I High Sens 30 POC Glucose 163 H 120 H Radiography Diagnostic Testing: Clinical Impression(s) from Imaging Studies Chest X-Ray 07/23/24 22:28 IMPRESSION: 1. Mild increase in the heart size associated with hazy opacity in the midlung bilaterally and interstitial disease in the lower lobes that may be due to interstitial edema. Possible CHF. 2. Diffuse emphysema. Electronically Signed: Saroj Almeida MD at 23:27 EDT , Rhythm Strip Rhythm Strip: Sinus Rhythm Rate: 62 Ectopy: None EKG Initial EKG: Attestation: I personally reviewed and interpreted this EKG as follows: Interpretation: Sinus Rhythm and No Acute Injury Pattern Comments: Peaked T waves precordial, unchanged compared with prior Prior EKG tracings: available for review Prior: Unchanged Management Discussion w/another healthcare provider: Hospitalist Discharge Plan Triage Chief Complaint: Shortness of Breath ED Provider: Bentley Salazar Dx/Rx/DC Orders Clinical Impression: Acute on chronic renal failure, Chronic obstructive pulmonary disease, Stage 4 chronic kidney disease due to type 1 diabetes mellitus, COVID, Hypocalcemia, Anemia, normocytic normochromic, Hyperkalemia, diminished renal excretion Prescriptions: No Action aspirin 81 mg tablet,delayed release (DR/EC) 81 mg PO DAILY (DME) FreeStyle Eileen 2 [place] Misc See Rx Instructions .ROUTE .MEDSUPPLY Qty: 1 0RF Rx Instructions: As directed gabapentin 800 mg tablet 800 mg PO QHS oxygen NASAL Rx Instructions: 3 l simvastatin 40 MG tablet 40 mg PO QHS albuterol sulfate 2.5 MG/3 ML solution for nebulization 2.5 mg INHALATION Q2H PRN PRN (Reason: dyspnea, wheezing) Qty: 1 0RF (DME) pen needle, diabetic 1 EACH needle 1 ea [facility] ACHS Qty: 1 0RF buspirone 7.5 mg tablet 7.5 mg PO BID 30 Days Qty: 60 0RF (DME) FreeStyle Precision Jeff Strips Strip See Rx Instructions .Route Qty: 25 6RF Rx Instructions: As directed clopidogrel 75 mg tablet 75 mg PO DAILY Qty: 90 3RF (DME) FreeStyle Eileen 2 Sensor Kit See Rx Instructions .ROUTE .MEDSUPPLY Qty: 6 1RF Rx Instructions: 1 sensor q 14 days nitroglycerin 0.4 mg tablet, sublingual 0.4 mg SUBLINGUAL Q5-15M PRN (Reason: chest pain) Qty: 25 3RF Rx Instructions: until response; do not exceed 3 doses per episode ipratropium-albuterol 0.5 mg-3 mg(2.5 mg base)/3 mL solution for nebulization 3 ml inhalation Q4H PRN PRN (Reason: SOB &/OR WHEEZING) Qty: 180 6RF albuterol sulfate 90 mcg/actuation HFA aerosol inhaler 2 puff INHALATION Q6H PRN PRN (Reason: Cough) Qty: 8.5 2RF metoprolol tartrate 50 mg tablet 50 mg PO BID Qty: 180 3RF (DME) Dexcom G6 Sensor Device See Rx Instructions .Route Qty: 3 5RF Rx Instructions: 1 sensor q 10 days (DME) Dexcom G6 Transmitter Device See Rx Instructions .Route Qty: 1 1RF Rx Instructions: 1 transmitter q 90 days insulin lispro [Humalog U-100 Insulin] 100 unit/mL solution 60 unit continuous subcutaneous infusion .continuous Qty: 54 1RF Rx Instructions: via insulin pump (DME) Omnipod 5 G6 Pods (Gen 5) Cartridge See Rx Instructions .Route Qty: 10 5RF Rx Instructions: 1 pod 72 hours Prolia 60 mg/mL syringe 60 mg subcut [id number] Qty: 1 1RF Breztri Aerosphere 160-9-4.8 mcg/actuation HFA aerosol inhaler 2 inh inhalation BID Qty: 10.7 6RF Primary Care Provider: Bird Lujan Referrals: Bird Lujan MD [Primary Care Provider] - Print Language: [place] Disposition Disposition: Acute Care Hospital [facility]
[2024-07-23 22:00] VITALS: PULSE 62; RESP 24
[2024-07-23] MEDS: Ipratropium/Albuterol Sulfate 3 ML AMPUL.NEB INHALATION (22:00)
[2024-07-23] MEDS: 0.9% Normal Saline (1000mL) 1,000 ML 999 ML IV (22:06)
[2024-07-23] MEDS: Albuterol 2.5 MG/3 ML VIAL.NEB. INHALATION (22:06)
--- NOTE | 2024-07-23 22:15 | CPS ---
[2206] x1 Albuterol given to pt. in ER as well
[2024-07-23 22:26] VITALS: BP 115/93; PULSE 67; RESP 17; TEMP 36.6; O2SAT 98
[2024-07-23 22:28] VITALS: O2SAT 97
--- NOTE | 2024-07-23 22:28 | RAD_ITS ---
EXAM: XR CHEST, 2 VIEWS CLINICAL INDICATION: COUGH, SOB, FEELING and quot;CRUDDY and quot; TODAY PER PT TECHNIQUE: Frontal and lateral views of the chest. COMPARISON: 04/14/2024. CT scan of the chest 05/05/2024. FINDINGS: LUNGS AND PLEURAL SPACES: Hazy opacity in the mid lungs bilaterally. Thickening of the interlobular septa in the lower lobes bilaterally. Diffuse emphysema. HEART: Heart size is mildly enlarged compared with the prior exam and for the degree of emphysema. MEDIASTINUM: Central airways and mediastinal contour are unremarkable. BONES/JOINTS: Unremarkable. No acute fracture. SOFT TISSUES: Unremarkable. RAD/Chest PA and Lateral IMPRESSION: 1. Mild increase in the heart size associated with hazy opacity in the midlung bilaterally and interstitial disease in the lower lobes that may be due to interstitial edema. Possible CHF. 2. Diffuse emphysema. Electronically Signed: Saroj Almeida MD at 23:27 EDT ,
[2024-07-23 22:32] LABS: Absolute Lymphocyte Count 1.37 X10^3/uL (0.83-4.51); Absolute Neutrophil Count 4.2 X10^3/uL (2.0-7.7); Basophil# 0.03 X10^3/uL; Basophil% 0.5 % (0-1); Eosinophils% 4.6 % (0-5); Lymphocyte # 1.37 X10^3/ul (0.83-4.51); Lymphocyte % 21.1 % (19-41); Mean Corp Hgb Conc 29.2 g/dL (32-36); Mean Corpuscular Hgb 28.3 pg (27.0-32.0); Mean Corpuscular Volume 97.2 fL (81-99); Mean Platelet Vol. 10.2 fl (6.2-12.0); Monocyte% 7.7 % (0-10); NRBC Flagged by Analyzer 0 % (0-5); Neutrophil # 4.24 X10^3/uL (2.7-7.7); Neutrophil % 65.5 % (47-70); Platelet Count 182 K/mm3 (150-450); RBC Distribution Width CV 13.5 % (11.6-14.6); RBC Distribution Width SD 48.6 fl (35.1-43.9); Red Blood Count 2.47 M/mm3 (4.2-5.4); White Blood Count 6.5 K/mm3 (4.4-11.0)
[2024-07-23 23:00] VITALS: BP 142/70; PULSE 64; RESP 20; TEMP 36.6; O2SAT 100
[2024-07-23 23:09] LABS: Bedside Glucose 120 mg/dL (74-106)
[2024-07-23 23:19] LABS: Anion Gap 4 (5-15); BUN 44 mg/dL (7-18); Calcium,Total 5.4 mg/dL (8.5-10.1); Chloride 101 mmol/L (98-107); Creatinine, Serum 3.66 mg/dL (0.55-1.02); EST Glomerular Filtration Rate 13 mL/min (>60); Est Glom Filt Rate - Afr Amer 16 mL/min (>60); Glucose 146 mg/dL (74-106); Potassium 5.4 mmol/L (3.5-5.1); Sodium Level 134 mmol/L (136-145); Troponin-I HS 30 pg/mL (3.0-54.0)
[2024-07-23 23:32] LABS: Color, Urine Yellow (Yellow); Glucose, Dipstick 50 mg/dl (Normal); Ketone-Dipstick Negative (Negative); Leukocyte Esterase-Dipstick 100 /ul (Negative); Mucous, Urine 0 SEEN /hpf (<or=2+); Nitrite-Dipstick Negative (Negative); Occult Blood-Urine 150 /ul (Negative); Protein-Dipstick 500 mg/dl (Negative); Red Blood Cells-Urine 0 SEEN /hpf (0-5); Squamous Epithelial Cells - UA 0 SEEN /hpf (5-10); Urine Bilirubin Dipstick Negative (Negative); Urine Clarity Clear (Clear); Urine Urobilinogen Normal (Normal)
[2024-07-23 23:43] VITALS: BMI 18.1
--- NOTE | 2024-07-23 23:45 | PCM.HP.STD ---
HPI - General General Date of Admission: 07/23/24 Date of Service: 07/23/24 Chief Complaint: Dyspnea. HPI Narrative The patient is a 63 y/o F w/ PMHx: Tobacco use, COPD with Chronic Hypoxic Respiratory Failure 4L NC, Severe protein calorie malnutrition, Chronic anemia, IDDM with chronic neuropathy, CKD stage IV, HTN, HLD, Anxiety and Depression, CAD s/p PCI 2018 who presents to the [facility] ED on 07/23/24 with history of increasing fatigue malaise over the last week with dyspnea worse with exertion with onset of wheezing with no specific fevers or chills with cough not markedly productive with decreased oral intake and as a result decreased urine output as well as recent loose stools with home nebulizer however she is unable to use this secondary to the feeling of claustrophobia with the mask over her face but has been using an albuterol MDI but given this has been ongoing and she has noted recent hyperglycemia prompted eventual ED evaluation. Her who is present also reports having been ill for similar timeline but notes feel improved but still coughing. Workup in the ED included T97, heart rate 66, BP 111/45, respiratory rate 26, 100% on 3 L nasal cannula which is patient's chronic baseline oxygen usage level, CBC with WBC 6.5, hemoglobin 7.0, MCV 97.2, platelet 182 without marked shift, BMP with sodium 134, potassium 5.4, BUN/creatinine 44/3.66, GFR 13, glucose 146, calcium 5.4, troponin 30 rapid SARS COVID/influenza/RSV PCR with positive SARS COVID-19, chest x-ray with mild increase in the heart size associate with his opacity in the midlung bilaterally incisional disease in the lower lobes possibly secondary to interstitial edema, diffuse emphysematous changes EKG with sinus rhythm with no acute evidence of ischemia. In the ED patient ministered 1 L normal saline, DuoNeb and albuterol therapy as well as IV calcium gluconate. UA pending upon request evaluation of patient. In the ED also patient ordered 1 U PRBC. [facility] Medical History Fissure in skin of foot [place]'s sign present Tobacco abuse CKD (chronic kidney disease) stage 4, GFR 15-29 ml/min Body mass index (BMI) less than 16.5 Underweight Polyneuropathy due to type 1 diabetes mellitus Stage 4 chronic kidney disease due to type 1 diabetes mellitus Respiratory failure with hypoxia Smoking greater than 30 pack years Anemia Diabetic nephropathy, type I Hyperkalemia Renal insufficiency Diabetes Chronic obstructive pulmonary disease Essential (primary) hypertension Hypersomnia Anxiety Depression Atherosclerosis of coronary artery of [place] heart without angina pectoris NSTEMI (non-ST elevated myocardial infarction) (01/12/18) DM type 1 (diabetes mellitus, type 1) Hyperlipidemia COPD (chronic obstructive pulmonary disease) Home Medications ?Medication ?Instructions ?Recorded ?Last Taken ?Type simvastatin 40 mg tablet 40 mg PO QHS cholesterol 06/21/18 06/20/18 20:00 History albuterol sulfate 2.5 mg/3 mL 2.5 mg (3 mL) inhalation Q2H PRN 06/23/18 Unknown Rx (0.083 %) solution for nebulization PRN dyspnea, wheezing ##1 aspirin 81 mg tablet,delayed 81 mg PO DAILY 12/31/19 Unknown History release pen needle, diabetic 32 gauge x ##1 08/29/20 Unknown Rx flash glucose scanning reader #1 ea 11/20/20 Unknown Rx (FreeStyle Eileen 2 [place]) gabapentin 800 mg tablet 800 mg PO QHS 02/17/23 Unknown History blood sugar diagnostic (FreeStyle #25 ea 08/26/23 Unknown Rx Precision Jeff Strips) clopidogrel 75 mg tablet 75 mg PO DAILY #90 tabs 08/26/23 Unknown Rx FreeStyle Eileen 2 Sensor (flash #6 ea 08/27/23 Unknown Rx glucose sensor) nitroglycerin 0.4 mg sublingual 0.4 mg sublingual Q5-15M PRN chest 10/19/23 Unknown Rx tablet pain #25 tabs oxygen NASAL 12/03/23 Unknown History ipratropium 0.5 mg-albuterol 3 mg 3 ml inhalation Q4H PRN PRN SOB 12/29/23 Unknown Rx (2.5 mg base)/3 mL nebulization &/OR WHEEZING #180 mL soln buspirone 7.5 mg tablet 7.5 mg PO BID 30 days #60 tabs 04/15/24 Unknown Rx albuterol sulfate 90 mcg/actuation 2 puff inhalation Q6H PRN PRN 05/05/24 Unknown Rx aerosol inhaler Cough #8.5 grams blood-glucose sensor (Dexcom G6 #3 ea 05/12/24 Unknown Rx Sensor device) blood-glucose transmitter (Dexcom #1 ea 05/12/24 Unknown Rx G6 Transmitter device) metoprolol tartrate 50 mg tablet 50 mg PO BID #180 tabs 05/12/24 Unknown Rx insulin lispro 100 unit/mL 60 unit (0.6 mL) continuous 05/28/24 Unknown Rx subcutaneous solution (Humalog subcutaneous infusion .continuous U-100 Insulin) #54 mL insulin pump cart,automated,BT #10 ea 05/31/24 Unknown Rx (Omnipod 5 G6 Pods (Gen 5) subcutaneous cartridge) denosumab 60 mg/mL subcutaneous 60 mg subcut S3USICJC #1 mL 06/10/24 Unknown Rx syringe (Prolia) budesonide 160 mcg-glycopyr 9 2 inh inhalation BID #10.7 grams 07/20/24 Unknown Rx mcg-formot 4.8 mcg/actuation HFA inhaler (Breztri Aerosphere) Allergy/AdvReac Type Severity Reaction Status Date / Time No Known Allergies Allergy Verified 07/23/24 21:27 Family History Mother Heart disease COPD (chronic obstructive pulmonary disease) Lupus Daughter Growth disorder Down syndrome Fibromyalgia Grandfather Colon cancer Diabetes Grandmother Heart disease CVA (cerebral vascular accident) Diabetes Pulmonary disease Sister Hypertension Kidney disease Surgical History H/O: Hx of appendectomy H/O: hysterectomy History of coronary artery stent placement (02/04/18) Social History (Updated 07/24/24 @ 00:[address] Lani Samaniego MD) housing: house pets and animals: Yes pets and animals: cat(s) Smoking Status: Light Smoker (<10/day) how long ago did patient quit smoking: Since 05/2024 cut back and has only had ~ 10 cigarettes since then. quit status: considering quitting alcohol intake: never substance use type: does not use caffeine: Yes Type: carbonated beverages Number of servings: 4 what type of physical activity do you participate in: none seatbelt use: always do you feel safe at home: Yes ROS ROS Narrative Admission Review of Systems: CONSTITUTIONAL: No weight loss, fever, chills, + weakness or fatigue. HEENT: Eyes: No visual loss, blurred vision, double vision or yellow sclerae. Ears, Nose, Throat: No hearing loss, sneezing, congestion, runny nose or sore throat. SKIN: No rash or itching, lesions, wounds. CARDIOVASCULAR: No chest pain, chest pressure or chest discomfort, palpitations, edema, orthopnea, syncopal events. RESPIRATORY: + Dyspnea, worse with exertion, cough without marked sputum, wheezing. No hemoptysis. GASTROINTESTINAL: + Anorexia, mild abdominal cramping, loose stools. No nausea, vomiting, abdominal pain, melena, BRBPR. GENITOURINARY: + Decreased oral intake with resulting decreased urine output. No dysuria, frequency, urgency or retention. NEUROLOGICAL: No headache, dizziness, syncope, paralysis, ataxia, numbness or tingling in the extremities, focal weakness, change in bowel or bladder control, seizure. MUSCULOSKELETAL: + muscle, back pain, joint pain or stiffness. HEMATOLOGIC: + Chronic anemia, easy bleeding/bruising. LYMPHATICS: No enlarged nodes. No history of splenectomy. PSYCHIATRIC: + History of anxiety and depression. ENDOCRINOLOGIC: No reports of sweating, cold or heat intolerance. No polyuria or polydipsia. ALLERGIES: No history of asthma, hives, eczema or rhinitis. Vital Signs Vital Signs Vital Signs: 07/23/24 21:23 07/23/24 22:00 07/23/24 22:26 Temperature 97 F L 97.9 F Temperature Source Temporal Temporal Pulse Rate 66 62 67 Respiratory Rate 26 H 24 H 17 Respiratory Effort Respiratory Depth Respiratory Pattern Tachypnea Blood Pressure 111/45 L 115/93 H Blood Pressure Mean 67 100 Pulse Ox 100 98 Oxygen Delivery Method Nasal Cannula Nasal Cannula Oxygen Flow Rate (L/min) 3 3 07/23/24 22:28 07/23/24 22:28 07/23/24 23:00 Temperature 97.9 F Temperature Source Temporal Pulse Rate 64 Respiratory Rate 20 H Respiratory Effort Short of Breath Respiratory Depth Shallow Respiratory Pattern Tachypnea Blood Pressure 142/70 H Blood Pressure Mean 94 Pulse Ox 100 Oxygen Delivery Method Room Air Nasal Cannula Nasal Cannula Oxygen Flow Rate (L/min) 3 3 Weight Weight: 111 lb 15.917 oz Body Mass Index (BMI) 18.1 Physical Exam Narrative Physical Examination: General: Awake, alert, oriented x 3 and cooperative, seated upright in ED bed, fatigued. Skin: Normal color, normal turgor, no icterus, no cyanosis except very stage abrasions, ecchymoses HEENT: AT/NC, EOMI, PERRLA, dry MM, no carotid bruits or JVD noted. Lungs: Severely diffusely diminished, greater bases, mild increased respiratory rate but no distress noted, end expiratory wheeze primarily bases. Heart: Regular rate and rhythm; no gallop, rub audible. Abdomen: Soft, thin cachectic habitus, NTTP, ND, hyperactive BS, no appreciated HSM. Extremities: No cyanosis, no clubbing, no marked peripheral edema, evidence of muscle/fat loss. Neurological: Patient awake, alert, oriented as noted, cognitive function intact; pupils equally reactive to light and accommodation, cranial nerves grossly normal, moving all 4 extremities, no focal deficits, strength moderately to severely globally decreased secondary to acute presentation. Psychiatric: Affect appears flat, fatigued, ill-appearing, no acute evidence of depressive or anxiety feelings but does have underlying history. Results Lab / Micro Data 07/23/24 22:23 07/23/24 22:23 Labs: Laboratory Results - last 24 hr 07/23/24 21:36: POC Glucose 163 H 07/23/24 22:23: WBC 6.5, RBC 2.47 L, Hgb 7.0 L, Hct 24.0 L, MCV 97.2, MCH 28.3, MCHC 29.2 L, RDW Std Deviation 48.6 H, RDW Coeff of Iron 13.5, Plt Count 182, MPV 10.2, Immature Gran % (Auto) 0.600, Neut % (Auto) 65.5, Lymph % (Auto) 21.1, Ness % (Auto) 7.7, Eos % (Auto) 4.6, Baso % (Auto) 0.5, Absolute Neuts (auto) 4.2, Absolute Lymphs (auto) 1.37, Nucleated RBC % 0, Sodium 134 L, Potassium 5.4 H, Chloride 101, Carbon Dioxide 29.0, Anion Gap 4 L, BUN 44 H, Creatinine 3.66 H, Est GFR (MDRD) Af Amer 16 L, Est GFR (MDRD) Non-Af 13 L, BUN/Creatinine Ratio 12.0, Glucose 146 H, Calcium 5.4 L*, Troponin I High Sens 30 07/23/24 22:52: POC Glucose 120 H Micro: Microbiology 07/23/24 22:20 Mucosa - Nose SARS-CoV-2, Influenza & RSV (PCR) - Final SARS-CoV-2 (COVID 19 PCR) Imaging Radiology Impression Chest X-Ray 07/23/24 22:28 IMPRESSION: 1. Mild increase in the heart size associated with hazy opacity in the midlung bilaterally and interstitial disease in the lower lobes that may be due to interstitial edema. Possible CHF. 2. Diffuse emphysema. Electronically Signed: Saroj Almeida MD at 23:27 EDT , Assessment & Plan Assessment/Plan (1) COVID: (2) COPD exacerbation: (3) UMA (acute kidney injury): (4) Hypocalcemia: PLAN: Plan The patient is a 63 y/o F w/ PMHx: Tobacco use, COPD with Chronic Hypoxic Respiratory Failure 4L NC, Severe protein calorie malnutrition, Chronic anemia, IDDM with chronic neuropathy, CKD stage IV, HTN, HLD, Anxiety and Depression, CAD s/p PCI 2018 who presents to the [facility] ED on 07/23/24 with history of increasing fatigue malaise over the last 7 days with dyspnea worse with exertion with onset of wheezing with no specific fevers or chills with cough not markedly productive with decreased oral intake and as a result decreased urine output with home nebulizer however she is unable to use this secondary to the feeling of claustrophobia with the mask over her face but has been using an albuterol MDI but given this has been ongoing and she has noted recent hyperglycemia prompted eventual ED evaluation. #1. Acute on Chronic COPD exacerbation with Chronic hypoxic respiratory failure secondary to Acute Viral Syndrome, COVID-19: Will admit to the [facility] telemetry maintain on COVID precautions, will maintain on home oxygen supplementation, maintain on ATC budesonide therapy, PRN albuterol, HOB, IS parameters w/ pending D-dimer, procalcitonin, CRP, CPK, Ferritin, LDH and BNP, continue supportive care including q 2 hour turning including prone given no prone bed availability and judicious hydration, closely monitor for worsening status for ARDS and multiorgan failure, will initiate and continue IV decadron x 10 doses, given notably worsening renal disease will defer remdesivir. PT/OT/CM consulted for discharge planning. #2. Acute on chronic normocytic anemia/AOCD: Admission hemoglobin 7.0, MCV 97.2 and per review has been consistently trending down since October 2023, has transiently also decreased in the past, most recently 02/26/23 hemoglobin 10.5-> 01/15/24 hemoglobin 11.4-> 04/14/24 hemoglobin 8.4 and now currently down to 7, will obtain iron panel, ferritin as well as stool guaiac to be cautious especially given chronic antiplatelet therapies, continue to trend CBC. Will continue aspirin/Plavix given underlying CAD history however low threshold to hold if necessary if guaiac is positive. #3. UMA on Chronic Kidney Disease Stage IV: Suspect likely secondary to acute presentation as noted, admission BUN/Cr 44/3.66, baseline renal function primarily 2.3-2.7, most recently 04/14/24 creatinine 2.42, will hold all nephrotoxic medication, judiciously hydrate especially given COVID illness, repeat CMP in AM, obtain FeNa, obtain renal US, will also involve Nephrology. #4. Hypocalcemia: Unclear etiology, admission calcium 5.4, requested hepatic profile to be obtained in order to calculate corrected, calcium gluconate administered in the ED, will obtain ionized calcium, obtain vitamin D level (25-(OH)D, 1,25-(OH)2D), PTH, Mag, Phos, spot UCa levels to further assess. #5. Hyponatremia, mild, possibly component hypovolemia: Admission sodium 134, chloride 101, will judiciously hydrate especially given COVID illness and repeat CMP in AM. #6. Hyperkalemia, mild: Admission potassium 5.4, will judiciously hydrate and repeat BMP in AM. #7. IDDM with chronic polyneuropathy: Most recent hemoglobin A1c prior to current presentation 04/14/24 noted to be 6.6%, elevated blood sugar at home likely secondary to acute illness as noted, will continue home insulin regimen once clarified, ADA diet, accu checks w/ ISS and repeat hemoglobin A1c to be cautious however will expected to increase with steroids usage and may adjust regimen as needed. Will continue patient on gabapentin regimen. #8. CAD: Status post PCI, will continue aspirin/Plavix unless as noted above stool guaiac returns positive given worsened anemia I suspect this is likely from progressing renal disease. Will continue metoprolol, statin therapy, not on a severe/ARB secondary to likely underlying renal disease. #9. Hypertension: Continue home regimen including metoprolol, PRN hydralazine. #10. Hyperlipidemia: We will continue patient on statin therapy. #11. Anxiety and depression: We will continue patient home mirtazapine and BuSpar regimen. #12. Tobacco Abuse: Encouraged cessation, inpatient consultation per RT, NR if desired. #13. Severe protein calorie malnutrition: Significantly reduced BMI, obvious muscle and fat loss, will consult nutrition for recommendations. #14. DVT prophylaxis: SCDs given evaluation of worsened anemia as noted above. #15. CODE status: Patient HCPOA and LW are not in place but she notes her who is present would be her decision maker if necessary. Discussed CODE status at length including difference between FULL code, DNR-CCA and DNR-CC status. Following discussions about the differences in these status, requested Full Code status. Advanced Care Planning Face to Face Time: 16 minutes. Charges/Coding Visit Charges Inpatient E&M: 61782 Init Hosp L3 Procedures Hospitalists Procedures: 31123 Advncd Care Plan 30 Min
[2024-07-23] MEDS: Calcium Gluconate 1 GM/10 ML Vial IVP (23:55)
[2024-07-24] VITALS (13 sets, daily range): BP systolic 125–177; BP diastolic 51–102; PULSE 64–78; RESP 18–26; TEMP 21.1–36.5; O2SAT 94–100; BMI 17.2
[2024-07-24 00:09] LABS: AST(SGOT) 17 U/L (15-37); Alanine Aminotransfer ALT/SGPT 17 U/L (13-56); Albumin, Serum 2.7 g/dL (3.2-5.0); Alkaline Phosphatase 75 U/L (45-117); Globulin 3.7 g/dL (2.2-4.2); Protein, Total 6.4 g/dL (6.4-8.2)
[2024-07-24 00:17] LABS: Bacteria 1+ /hpf (None Seen); White Blood Cells 0-5 SEEN /hpf (0-5)
[2024-07-24 00:38] LABS: D-Dimer Quantitative (DVT/PE) 2.82 FEU/ug/m (0.27-0.49)
[2024-07-24 00:41] LABS: CPK Total, Creatine Kinase 604 U/L (26-192); Ferritin 106 ng/mL (8-252); Iron 24 ug/dL (50-170); Iron Binding Capacity,Total 233 ug/dL (250-450); LDH 334 U/L (84-246); Magnesium 1.6 mg/dL (1.6-2.6); PERCENT IRON SATURATION 10.3 % (15.0-55.0)
[2024-07-24 00:59] LABS: Erythrocyte Sedimentation Rate 21 mm/hr (0-30)
[2024-07-24 01:23] LABS: BNP,B-Type NATRIURETIC PEPTIDE 2478.5 pg/mL (0-100)
[2024-07-24 01:32] LABS: Ionized Calcium 3.39 mg/dL (4.36-5.20)
[2024-07-24 01:32] LABS: Procalcitonin 0.11 ng/mL (0.00-0.09)
[2024-07-24] MEDS: 0.9% Normal Saline (1000mL) 1,000 ML 999 ML IV (01:33)
[2024-07-24 01:55] LABS: Hemoglobin A1c 5.7 % (3.8-5.6)
[2024-07-24 01:57] LABS: Vitamin D,25 Hydroxy 11.5 ng/mL
[2024-07-24 02:18] LABS: PTHIN 1027.8 pg/mL (18.4-80.1)
[2024-07-24] MEDS: dexAMETHasone 4 MG/ML Vial 6 MG IV ×2 (03:08→08:53)
--- NOTE | 2024-07-24 04:12 | PCM.HOSP.N ---
Hospitalist Note Patient unfortunately upon further questioning cannot tell us what her insulin pump is running at and she has not been using a formal insulin sliding scale system because she has not been able to afford the sensor and apparently has just been guessing how much insulin to give herself. Discussed that this is unsafe and at this point we will stop the insulin pump and transition to insulin sliding scale and attempting to verify what her pump has been running at as well as what she was on previously long-acting twice daily in case this needs to be utilized for short period. She is going to need very early follow-up with endocrinology with whom she follows to assure that she is educated about the safety risks of this and that they can assure she is able to get a sensor and is more educated about her insulin pump and what it is running.
--- NOTE | 2024-07-24 05:55 | US_ITS ---
INDICATION: UMA on CKD EXAMINATION: Ultrasound US Kidney(s) complete (eg, kidneys and bladder) TECHNIQUE: Poole scale and color doppler images were obtained of the kidneys. COMPARISON: 10/20/2023 FINDINGS: RIGHT KIDNEY: 9.7 x 3.8 x 3.2 cm. There is no hydronephrosis. No shadowing calculus, focal lesion or perinephric collection is demonstrated. Mildly increased cortical echotexture. LEFT KIDNEY: 9.3 x 4.1 x 4.0 cm. There is no hydronephrosis. No shadowing calculus, focal lesion or perinephric collection is demonstrated. Mildly increased cortical echotexture. URINARY BLADDER: Minimally distended. US/Kidney and Bladder IMPRESSION: No hydronephrosis. Evidence of intrinsic medical renal disease. Electronically Signed: Star Patiño MD at 19:49 EDT ,
[2024-07-24] MEDS: 0.9% Normal Saline (1000mL) 1,000 ML 75 ML IV (06:46)
[2024-07-24] MEDS: Insulin Lispro 100 UNIT/ML INSULN.PEN SC ×4 (06:49→20:35)
[2024-07-24 07:20] LABS: Bedside Glucose 225 mg/dL (74-106)
[2024-07-24 07:21] LABS: Bedside Glucose 177 mg/dL (74-106)
[2024-07-24 08:10] LABS: Absolute Lymphocyte Count 0.47 X10^3/uL (0.83-4.51); Absolute Neutrophil Count 6.3 X10^3/uL (2.0-7.7); Basophil# 0.05 X10^3/uL; Basophil% 0.7 % (0-1); Eosinophil# 0.12 X10^3/uL; Eosinophils% 1.6 % (0-5); Hematocrit 29.4 % (37-47); Hemoglobin 8.6 g/dL (12.0-15.0); Lymphocyte # 0.47 X10^3/ul (0.83-4.51); Lymphocyte % 6.5 % (19-41); Mean Corp Hgb Conc 29.3 g/dL (32-36); Mean Corpuscular Hgb 28.2 pg (27.0-32.0); Mean Corpuscular Volume 96.4 fL (81-99); Mean Platelet Vol. 10.3 fl (6.2-12.0); Monocyte# 0.16 X10^3/uL; Monocyte% 2.2 % (0-10); NRBC Flagged by Analyzer 0.3 % (0-5); Neutrophil # 6.33 X10^3/uL (2.7-7.7); Neutrophil % 86.9 % (47-70); POSITIVE DIFFERENTIAL YES; Platelet Count 196 K/mm3 (150-450); RBC Distribution Width CV 14.9 % (11.6-14.6); RBC Distribution Width SD 52.3 fl (35.1-43.9); Red Blood Count 3.05 M/mm3 (4.2-5.4); White Blood Count 7.3 K/mm3 (4.4-11.0)
[2024-07-24] MEDS: FLU VACC 2024-25(6MOS UP)/PF 45 MCG/0.5 ML SYRINGE IM (08:53)
[2024-07-24] MEDS: Aspirin E.C. 81 MG Tablet PO (08:54)
[2024-07-24] MEDS: busPIRone 15 MG TABLET 7.5 MG PO ×2 (08:54→20:34)
[2024-07-24] MEDS: Clopidogrel Bisulfate 75 MG Tablet PO (08:54)
[2024-07-24] MEDS: Metoprolol Tartrate 50 MG Tablet PO ×2 (08:54→20:34)
[2024-07-24 11:09] LABS: ALB/GLOB Ratio 0.7 RATIO (0.9-2.4); AST(SGOT) 18 U/L (15-37); Alanine Aminotransfer ALT/SGPT 17 U/L (13-56); Albumin, Serum 2.9 g/dL (3.2-5.0); Alkaline Phosphatase 78 U/L (45-117); Anion Gap 8 (5-15); BUN 42 mg/dL (7-18); BUN/Creat Ratio 12.2 RATIO (10-20); Calcium,Total 5.7 mg/dL (8.5-10.1); Chloride 103 mmol/L (98-107); Creatinine, Serum 3.45 mg/dL (0.55-1.02); EST Glomerular Filtration Rate 14 mL/min (>60); Est Glom Filt Rate - Afr Amer 17 mL/min (>60); Estimated Creatinine Clearance 12.61 ml/min; Globulin 3.9 g/dL (2.2-4.2); Glucose 220 mg/dL (74-106); Potassium 6.2 mmol/L (3.5-5.1); Protein, Total 6.8 g/dL (6.4-8.2); Sodium Level 134 mmol/L (136-145)
[2024-07-24 11:54] LABS: Bedside Glucose 337 mg/dL (74-106)
--- NOTE | 2024-07-24 12:41 | PN.HOSP_ITS ---
Reason for Visit Reason for Visit: Diagnoses Hypocalcemia (07/23/24) Chronic obstructive pulmonary disease with (acute) exacerbation (07/23/24) Acute kidney failure, unspecified (07/23/24) COVID-19 (07/23/24) Subjective Subjective Saw patient at bedside this morning. Patient was having her renal ultrasound done when I saw her. She did appear anxious and slightly confused. She was continually playing with her supplemental oxygen when I saw her. She denied any acute pain or discomfort. No other acute concerns at this time. Objective Data Objective Data Vital Signs: Vital Signs Temp Pulse Resp BP Pulse Ox O2 Del Method O2 Flow Rate 97.6 F L 71 20 H 148/73 H 100 Nasal Cannula 2 07/24/24 08:52 07/24/24 08:54 07/24/24 08:52 07/24/24 08:52 07/24/24 08:52 07/24/24 09:00 07/24/24 09:00 Oxygen Flow Rate (L/min) 2 Oxygen Delivery Method Nasal Cannula Weight: 48.5 kg Body Mass Index (BMI) 17.2 Intake & Output: Intake and Output for Last 24 Hours 07/22/24 07/23/24 07/24/24 23:59 23:59 23:59 Intake Total 2150 / 2150 Balance 2150 / 2150 Lab / Micro Data 07/24/24 07:56 07/24/24 07:56 Labs: Laboratory Results - last 24 hr 07/23/24 21:36: POC Glucose 163 H 07/23/24 22:23: WBC 6.5, RBC 2.47 L, Hgb 7.0 L, Hct 24.0 L, MCV 97.2, MCH 28.3, MCHC 29.2 L, RDW Std Deviation 48.6 H, RDW Coeff of Iron 13.5, Plt Count 182, MPV 10.2, Immature Gran % (Auto) 0.600, Neut % (Auto) 65.5, Lymph % (Auto) 21.1, [place] % (Auto) 7.7, Eos % (Auto) 4.6, Baso % (Auto) 0.5, Absolute Neuts (auto) 4.2, Absolute Lymphs (auto) 1.37, Nucleated RBC % 0, ESR 21, D-Dimer Quant (PE/DVT) 2.82 H*, Sodium 134 L, Potassium 5.4 H, Chloride 101, Carbon Dioxide 29.0, Anion Gap 4 L, BUN 44 H, Creatinine 3.66 H, Est GFR (MDRD) Af Amer 16 L, E st GFR (MDRD) Non-Af 13 L, BUN/Creatinine Ratio 12.0, Glucose 146 H, Calcium 5.4 L*, Phosphorus 5.0 H, Magnesium 1.6, Iron 24 L, TIBC 233 L, Iron Saturation 10.3 L, Ferritin 106, Total Bilirubin 0.20, Direct Bilirubin 0.10, AST 17, ALT 17, Alkaline Phosphatase 75, Lactate Dehydrogenase 334 H, Total Creatine Kinase 604 H, Troponin I High Sens 30, C-React Prot Ext Range 62.00 H, B-Natriuretic Peptide 2478.5 H, Total Protein 6.4, Albumin 2.7 L, Globulin 3.7 07/23/24 22:52: POC Glucose 120 H 07/23/24 23:28: Urine Color Yellow, Urine Clarity Clear, Urine pH 6.0, Ur Specific [place] 1.020, Urine Protein 500 H, Urine Glucose (UA) 50 H, Urine Ketones Negative, Urine Occult Blood 150 H, Urine Nitrite Negative, Urine Bilirubin Negative, Urine Urobilinogen Normal, Ur Leukocyte Esterase 100 H, Urine RBC 0 SEEN, Urine WBC 0-5 SEEN, Ur Squamous Epith Cells 0 SEEN, Urine Bacteria 1+, Urine Mucus 0 SEEN 07/23/24 23:47: Blood Type O POSITIVE, Antibody Screen NEGATIVE, Crossmatch See Detail 07/24/24 00:26: Vitamin D 25-Hydroxy 11.5, Procalcitonin 0.11 H 07/24/24 01:17: Hemoglobin A1c 5.7 H, PTH Intact 1027.8 H 07/24/24 01:26: Ionized Calcium 3.39 L 07/24/24 04:14: POC Glucose 225 H 07/24/24 06:40: POC Glucose 177 H 07/24/24 07:56: WBC 7.3, RBC 3.05 L, Hgb 8.6 L, Hct 29.4 L, MCV 96.4, MCH 28.2, MCHC 29.3 L, RDW Std Deviation 52.3 H, RDW Coeff of Iron 14.9 H, Plt Count 196, MPV 10.3, Immature Gran % (Auto) 2.100 H, Neut % (Auto) 86.9 H, Lymph % (Auto) 6.5 L, [place] % (Auto) 2.2, Eos % (Auto) 1.6, Baso % (Auto) 0.7, Absolute Neuts (auto) 6.3, Absolute Lymphs (auto) 0.47 L, Nucleated RBC % 0.3, Sodium 134 L, P otassium 6.2 H*, Chloride 103, Carbon Dioxide 23.0, Anion Gap 8, BUN 42 H, C reatinine 3.45 H, Estim Creat Clear Calc 12.61, Est GFR (MDRD) Af Amer 17 L, Est GFR (MDRD) Non-Af 14 L, BUN/Creatinine Ratio 12.2, Glucose 220 H, Calcium 5.7 L* , Total Bilirubin 0.40, AST 18, ALT 17, Alkaline Phosphatase 78, Total Protein 6.8, Albumin 2.9 L, Globulin 3.9, Albumin/Globulin Ratio 0.7 L 07/24/24 11:33: POC Glucose 337 H Micro: Microbiology 07/23/24 22:20 Mucosa - Nose SARS-CoV-2, Influenza & RSV (PCR) - Final SARS-CoV-2 (COVID 19 PCR) Radiography Diagnostic Testing: Radiology Impression Chest X-Ray 07/23/24 22:28 IMPRESSION: 1. Mild increase in the heart size associated with hazy opacity in the midlung bilaterally and interstitial disease in the lower lobes that may be due to interstitial edema. Possible CHF. 2. Diffuse emphysema. Electronically Signed: Saroj Almeida MD at 23:27 EDT , Rhythm Strip Rhythm Strip: Sinus Rhythm Rate: 62 Ectopy: None Physical Exam Const alert and no apparent distress Constitutional Narrative: Elderly female, thin and somewhat cachectic appearing, appears older than stated age, sitting up in bed, anxious and somewhat confused appearing, not answering all questions appropriately for me but in no acute distress. General Appearance: cooperative HEENT normocephalic, head/scalp atraumatic, hearing grossly normal bilaterally and nasal mucous membranes and turbinates normal Eyes PERRL, EOMs intact bilaterally and conjunctivae normal Neck full ROM Chest inspection of chest normal Resp normal respiratory effort and no use of accessory muscles Resp Narrative: Breathing comfortably on baseline 3 L nasal cannula at rest. Decreased breath sounds bilaterally throughout with mild crackles noted. No wheezing noted. Cardio regular rate, regular rhythm, no murmurs and peripheral pulses 2+ throughout GI normal to inspection, nondistended, normoactive bowel sounds, soft to palpation, non-tender and non-distended Back/Spine normal ROM Extremity normal to inspection, full ROM and no pedal edema Skin no rashes or lesions noted Neuro no focal motor deficits and no sensory deficits noted Psych Mood & Affect: anxious Assessment & Plan Assessment/Plan (1) COVID: (2) COPD exacerbation: (3) UMA (acute kidney injury): (4) Hypocalcemia: (5) Anemia, normocytic normochromic: PLAN: Plan Patient is a 63-year-old female who presented [facility] ED on 07/23/2024 with worsening fatigue and shortness of breath. 1. COVID-19 pneumonia with COPD exacerbation and mild acute on chronic hypoxic respiratory failure ? Required 3 L nasal cannula at baseline. COVID-19 positive on admit. Chest x- ray on admit showed diffuse emphysema, mild cardiomegaly with hazy opacities in mid lungs bilaterally and interstitial disease in lower lobes concerning for interstitial edema. Procalcitonin 0.11. CRP elevated at 62. Continue treatment with IV steroids. Continue home inhalers. Weaned back to 3 L nasal cannula on 07/24. Continue to monitor closely. 2. UMA on CKD stage IV, concern for CHF exacerbation ? Nephrology following. Creatinine 3.66 on admit, baseline 2.5-2.7. Creatinine remaining stable around 3.4-3.6. Renal ultrasound completed, read pending. BNP elevated at 2478. Suspect elevated BNP and mild volume overload is due to worsening kidney function, but last echo was in 2019 so repeat echo ordered. Will start IV Lasix 20 mg TID for now and closely monitor BMP and urine output. Treating hyperkalemia as noted below. Appreciate nephrology recommendations. 3. Acute on chronic normocytic anemia ? Hemoglobin 7.0 on admit, baseline appears to be around 8. Suspect worsening from baseline in part due to worsening kidney function. Iron studies are consistent with iron deficiency anemia. No active signs of bleeding noted. Transfused 1 unit of blood on admission with repeat hemoglobin 8.6. Will monitor CBC daily for now. 4. Hyperkalemia ? Potassium 5.4 on admit, increased to 6.2 on hospital day 2. Treated medically with repeat potassium 5.2. Presumed secondary to UMA as noted above. Continue to treat medically as needed. Appreciate nephrology recommendations. 5. Hypocalcemia in setting of hyperparathyroidism ? Calcium very low on admit at around 5.5. Albumin mildly low but corrected calcium still in the sixes. PTH very high at 1027, was previously 137 in January. Suspect parathyroidism is primarily due to CKD as noted above. No overt hypocalcemia symptoms noted on admission. However, given hyperkalemia as noted above, treating with IV calcium as needed. Monitor daily calcium level. Appreciate nephrology recommendations. 6. Insulin-dependent diabetes mellitus with neuropathy ? Continue treatment with sliding scale insulin with meals while inpatient. Continue home gabapentin. 7. Severe protein calorie malnutrition ? Nutrition consulted. BMI 17 on admit. Suspect some degree of pulmonary cachexia but malnutrition may be present due to poor p.o. intake as well. 8. Acute on chronic debility ? PT/OT/case management consulted. Lives at home with . Debilitated from baseline due to active infection as noted above. Chronic medical conditions: ? CAD s/p stenting, hypertension, hyperlipidemia: Continue home aspirin, Plavix, statin and Lopressor. ? Anxiety/depression: Continue home BuSpar. ? Tobacco abuse: Nicotine replacement therapy available as needed. Encouraged cessation. DVT prophylaxis: SCDs CODE STATUS: Full code, verified Expected disposition: TBD Total clinical time spent by myself addressing the patient's medical issues, reviewing all the data, and collaborating with patient's care team: 50 minutes. Charges/Coding Visit Charges Inpatient E&M: 58659 Subs Hosp L3
[2024-07-24] MEDS: Insulin Lispro 10 UNIT in Syringe 0 ML 6 UNIT IV (12:42)
[2024-07-24] MEDS: Calcium Gluconate 1 GM/10 ML Vial IVP ×2 (12:42→18:34)
[2024-07-24] MEDS: 0.9% Saline Lock 10 ML Syringe IV ×5 (12:42→21:35)
[2024-07-24] MEDS: Sodium Polystyrene Sulfonate 15 GM/60 ML UDC PO (12:43)
[2024-07-24] MEDS: Dextrose 10%-Water 250 ML 999 ML IV (12:43)
--- NOTE | 2024-07-24 14:04 | EKG12_ITS ---
Test Reason : Blood Pressure : / mmHG Vent. Rate : 064 BPM Atrial Rate : 064 BPM P-R Int : 146 ms QRS Dur : 074 ms QT Int : 472 ms P-R-T Axes : 079 -60 -26 degrees QTc Int : 486 ms Normal sinus rhythm Left axis deviation Septal infarct , age undetermined Abnormal ECG When compared with ECG of 23-JUL-2024 22:08, MANUAL COMPARISON REQUIRED, DATA IS UNCONFIRMED Confirmed by Saroj Lemos ([id number]), tape editor ARNALDO FENTON ([id number]) on 07/26/2024 1:25:54 PM Referred By: MICHELLE Confirmed By:Saroj Lemos
--- NOTE | 2024-07-24 14:58 | CASEMGMT ---
Addendum entered by Myriam Deng 07/24/24 15:07: Pt also reports that she has a glucometer and an insulin pump with a [facility]. Original Note: BO NICHOLSON Assessment Face to Face with patient for initial transition planning/care coordination assessment. BO NICHOLSON introduced self and role at [facility], pt voices understanding. Pt is A&Ox4 and is resting comfortably in bed and is calm. Care providers, pharmacy, and demographics verified. Admitting dx: COVID, COPD Exacerbation PCP: Bird Lujan Specialists: Dr. Huerta (Nephro), [facility], [facility] Preferred Pharmacy: [facility] Insurance: MMO Prescription Benefit: Yes LNOK: Jose Deng (H), Bobbi Steward (Carley) Living Arrangements: Pt lives with her in a two story home with 3 steps to enter with handrails ADLs/IADLs: States ind Transportation: Pt does not drive. Pt drives DME: Walk in shower. Pt states that she wears home oxygen through [employer]. TC to [employer] to verify current O2 Rx, but they are closed. Pt states that she wears 3L continuously at home. Pt states that she has a concentrator, portable tanks, and a pulse ox. Pt states that she has a portable tank her in the hospital to go home on. HHC/SNF: Denies Hx or needs Pt?s goal: Home Plan: Home with pt . Pt is currently on 2L of oxygen. 6-click score is 20. Pt denies the need for HHC, OP Tx, SNF, Pt link or CCN. Pt denies further questions or concerns at this time. Sammie Deng RN, CM
[2024-07-24 15:56] LABS: Urine Sodium 23 mmol/L (Not Establ.)
[2024-07-24 16:36] LABS: Calcium, Urine (Random) < 5.0 mg/dL (Not Estab.)
[2024-07-24 16:37] LABS: Bedside Glucose 193 mg/dL (74-106)
--- NOTE | 2024-07-24 17:07 | CON.PCM.RE_ITS ---
Assessment & Plan Assessment/Plan (1) UMA (acute kidney injury): (2) Stage 4 chronic kidney disease due to type 1 diabetes mellitus: (3) Hyperkalemia, diminished renal excretion: PLAN: Plan Acute kidney injury on CKD stage IV -Component of decreased effective blood volume serum creatinine on presentation 3.6 mg/dL improved to 3.4 mg/dL with some volume expansion Hyperkalemia -Main issue today's potassium 6.2 mmol/L. She did receive medical management awaiting repeat BMP -Since her blood pressure stable status post volume expansion will be okay with Lasix 20 mg IV to help with hyperkalemia No immediate need for renal placement therapy unless potassium is refractory and life-threatening, will have patient repeat BMP at 8 PM Renal ultrasound already ordered Discussed with RN, primary team patient and her daughter at bedside HPI Consult Data Date of Consult: 07/24/24 HPI Narrative HPI Narrative: SANDY ELLIS, is a 63 F with underlying CKD stage IV. Her independent contractor is Dr. Huerta who is not available this weekend. Patient presents to the hospital with increased weakness and shortness of breath. She is found to have COVID in addition rising serum creatinine and mild hyperkalemia hence nephrology was consulted. On presentation her serum creatinine is up to 3.6 mg/dL. Her baseline serum creatinine appears to be around 2.4 to 2.8 mg/dL Furthermore patient's had mild hyperkalemia potassium up to 6.2 mmol/L this morning. She did receive medical management including calcium, Kayexalate. She is given IV fluids with slight improvement serum creatinine to 3.4 mg/dL. [facility] Medical History Fissure in skin of foot [place]'s sign present Tobacco abuse CKD (chronic kidney disease) stage 4, GFR 15-29 ml/min Body mass index (BMI) less than 16.5 Underweight Polyneuropathy due to type 1 diabetes mellitus Stage 4 chronic kidney disease due to type 1 diabetes mellitus Respiratory failure with hypoxia Smoking greater than 30 pack years Anemia Diabetic nephropathy, type I Hyperkalemia Renal insufficiency Diabetes Chronic obstructive pulmonary disease Essential (primary) hypertension Hypersomnia Anxiety Depression Atherosclerosis of coronary artery of [place] heart without angina pectoris NSTEMI (non-ST elevated myocardial infarction) (01/12/18) DM type 1 (diabetes mellitus, type 1) Hyperlipidemia COPD (chronic obstructive pulmonary disease) Home Medications ?Medication ?Instructions ?Recorded ?Last Taken ?Type simvastatin 40 mg tablet 40 mg PO QHS cholesterol 06/21/18 07/23/24 20:00 History albuterol sulfate 2.5 mg/3 mL 2.5 mg (3 mL) inhalation Q2H PRN 06/23/18 Unknown Rx (0.083 %) solution for nebulization PRN dyspnea, wheezing ##1 aspirin 81 mg tablet,delayed 81 mg PO DAILY heart health 12/31/19 07/23/24 20:00 History release pen needle, diabetic 32 gauge x ##1 08/29/20 Unknown Rx flash glucose scanning reader #1 ea 11/20/20 Unknown Rx (FreeStyle Eileen 2 [place]) gabapentin 800 mg tablet 800 mg PO QHS neuropathy 02/17/23 07/23/24 20:00 History blood sugar diagnostic (FreeStyle #25 ea 08/26/23 Unknown Rx Precision Jeff Strips) clopidogrel 75 mg tablet 75 mg PO DAILY #90 tabs 08/26/23 07/23/24 20:00 Rx FreeStyle Eileen 2 Sensor (flash #6 ea 08/27/23 Unknown Rx glucose sensor) nitroglycerin 0.4 mg sublingual 0.4 mg sublingual Q5-15M PRN chest 10/19/23 Unknown Rx tablet pain #25 tabs oxygen NASAL 12/03/23 Unknown History ipratropium 0.5 mg-albuterol 3 mg 3 ml inhalation Q4H PRN PRN SOB 12/29/23 Unknown Rx (2.5 mg base)/3 mL nebulization &/OR WHEEZING #180 mL soln buspirone 7.5 mg tablet 7.5 mg PO BID 30 days #60 tabs 04/15/24 07/23/24 20:00 Rx albuterol sulfate 90 mcg/actuation 2 puff inhalation Q6H PRN PRN 05/05/24 Unknown Rx aerosol inhaler Cough #8.5 grams blood-glucose sensor (Dexcom G6 #3 ea 05/12/24 Unknown Rx Sensor device) blood-glucose transmitter (Dexcom #1 ea 05/12/24 Unknown Rx G6 Transmitter device) metoprolol tartrate 50 mg tablet 50 mg PO BID #180 tabs 05/12/24 07/23/24 20:00 Rx insulin lispro 100 unit/mL 60 unit (0.6 mL) continuous 05/28/24 Unknown Rx subcutaneous solution (Humalog subcutaneous infusion .continuous U-100 Insulin) #54 mL insulin pump cart,automated,BT #10 ea 05/31/24 Unknown Rx (Omnipod 5 G6 Pods (Gen 5) subcutaneous cartridge) denosumab 60 mg/mL subcutaneous 60 mg subcut [id number] #1 mL 06/10/24 07/28/23 19:15 Rx syringe (Prolia) budesonide 160 mcg-glycopyr 9 2 inh inhalation BID #10.7 grams 07/20/24 Unknown Rx mcg-formot 4.8 mcg/actuation HFA inhaler (Breztri Aerosphere) Allergy/AdvReac Type Severity Reaction Status Date / Time No Known Allergies Allergy Verified 07/23/24 21:27 Family History Mother Heart disease COPD (chronic obstructive pulmonary disease) Lupus Daughter Growth disorder Down syndrome Fibromyalgia Grandfather Colon cancer Diabetes Grandmother Heart disease CVA (cerebral vascular accident) Diabetes Pulmonary disease Sister Hypertension Kidney disease Surgical History H/O: Hx of appendectomy H/O: hysterectomy History of coronary artery stent placement (02/04/18) Social History (Updated 07/24/24 @ 00:[address] Lain Samaniego MD) housing: house pets and animals: Yes pets and animals: cat(s) Smoking Status: Light Smoker (<10/day) how long ago did patient quit smoking: Since 05/2024 cut back and has only had ~ 10 cigarettes since then. quit status: considering quitting alcohol intake: never substance use type: does not use caffeine: Yes Type: carbonated beverages Number of servings: 4 what type of physical activity do you participate in: none seatbelt use: always do you feel safe at home: Yes ROS ROS Narrative 12 view of systems negative other stated above Physical Exam Narrative Patient is awake and responsive On nasal cannula Breath sounds coarse anteriorly S1-S2 regular Abdomen is nontender No significant dependent edema lower extremity No Molina catheter Lab / Micro Data 07/24/24 07:56 07/24/24 07:56 Labs: Laboratory Results - last 24 hr 07/23/24 21:36: POC Glucose 163 H 07/23/24 22:23: WBC 6.5, RBC 2.47 L, Hgb 7.0 L, Hct 24.0 L, MCV 97.2, MCH 28.3, MCHC 29.2 L, RDW Std Deviation 48.6 H, RDW Coeff of Iron 13.5, Plt Count 182, MPV 10.2, Immature Gran % (Auto) 0.600, Neut % (Auto) 65.5, Lymph % (Auto) 21.1, [place] % (Auto) 7.7, Eos % (Auto) 4.6, Baso % (Auto) 0.5, Absolute Neuts (auto) 4.2, Absolute Lymphs (auto) 1.37, Nucleated RBC % 0, ESR 21, D-Dimer Quant (PE/DVT) 2.82 H*, Sodium 134 L, Potassium 5.4 H, Chloride 101, Carbon Dioxide 29.0, Anion Gap 4 L, BUN 44 H, Creatinine 3.66 H, Est GFR (MDRD) Af Amer 16 L, E st GFR (MDRD) Non-Af 13 L, BUN/Creatinine Ratio 12.0, Glucose 146 H, Calcium 5.4 L*, Phosphorus 5.0 H, Magnesium 1.6, Iron 24 L, TIBC 233 L, Iron Saturation 10.3 L, Ferritin 106, Total Bilirubin 0.20, Direct Bilirubin 0.10, AST 17, ALT 17, Alkaline Phosphatase 75, Lactate Dehydrogenase 334 H, Total Creatine Kinase 604 H, Troponin I High Sens 30, C-React Prot Ext Range 62.00 H, B-Natriuretic Peptide 2478.5 H, Total Protein 6.4, Albumin 2.7 L, Globulin 3.7 07/23/24 22:52: POC Glucose 120 H 07/23/24 23:28: Urine Color Yellow, Urine Clarity Clear, Urine pH 6.0, Ur Specific [place] 1.020, Urine Protein 500 H, Urine Glucose (UA) 50 H, Urine Ketones Negative, Urine Occult Blood 150 H, Urine Nitrite Negative, Urine Bilirubin Negative, Urine Urobilinogen Normal, Ur Leukocyte Esterase 100 H, Urine RBC 0 SEEN, Urine WBC 0-5 SEEN, Ur Squamous Epith Cells 0 SEEN, Urine Bacteria 1+, Urine Mucus 0 SEEN 07/23/24 23:47: Blood Type O POSITIVE, Antibody Screen NEGATIVE, Crossmatch See Detail 07/24/24 00:26: Vitamin D 25-Hydroxy 11.5, Procalcitonin 0.11 H 07/24/24 01:17: Hemoglobin A1c 5.7 H, PTH Intact 1027.8 H 07/24/24 01:26: Ionized Calcium 3.39 L 07/24/24 04:14: POC Glucose 225 H 07/24/24 06:40: POC Glucose 177 H 07/24/24 07:56: WBC 7.3, RBC 3.05 L, Hgb 8.6 L, Hct 29.4 L, MCV 96.4, MCH 28.2, MCHC 29.3 L, RDW Std Deviation 52.3 H, RDW Coeff of Iron 14.9 H, Plt Count 196, MPV 10.3, Immature Gran % (Auto) 2.100 H, Neut % (Auto) 86.9 H, Lymph % (Auto) 6.5 L, [place] % (Auto) 2.2, Eos % (Auto) 1.6, Baso % (Auto) 0.7, Absolute Neuts (auto) 6.3, Absolute Lymphs (auto) 0.47 L, Nucleated RBC % 0.3, Sodium 134 L, P otassium 6.2 H*, Chloride 103, Carbon Dioxide 23.0, Anion Gap 8, BUN 42 H, C reatinine 3.45 H, Estim Creat Clear Calc 12.61, Est GFR (MDRD) Af Amer 17 L, Est GFR (MDRD) Non-Af 14 L, BUN/Creatinine Ratio 12.2, Glucose 220 H, Calcium 5.7 L* , Total Bilirubin 0.40, AST 18, ALT 17, Alkaline Phosphatase 78, Total Protein 6.8, Albumin 2.9 L, Globulin 3.9, Albumin/Globulin Ratio 0.7 L 07/24/24 11:33: POC Glucose 337 H 07/24/24 15:35: Ur Random Sodium 23, Ur Random Calcium < 5.0, Urine Creatinine 78.60 07/24/24 16:12: POC Glucose 193 H Micro: Microbiology 07/23/24 22:20 Mucosa - Nose SARS-CoV-2, Influenza & RSV (PCR) - Final SARS-CoV-2 (COVID 19 PCR) Rhythm Strip Rhythm Strip: Sinus Rhythm Rate: 62 Ectopy: None Imaging Radiology Impression Chest X-Ray 07/23/24 22:28 IMPRESSION: 1. Mild increase in the heart size associated with hazy opacity in the midlung bilaterally and interstitial disease in the lower lobes that may be due to interstitial edema. Possible CHF. 2. Diffuse emphysema. Electronically Signed: Saroj Almeida MD at 23:27 EDT ,
[2024-07-24 17:21] LABS: Anion Gap 8 (5-15); BUN 52 mg/dL (7-18); BUN/Creat Ratio 14.2 RATIO (10-20); Calcium,Total 5.5 mg/dL (8.5-10.1); Chloride 103 mmol/L (98-107); Creatinine, Serum 3.65 mg/dL (0.55-1.02); EST Glomerular Filtration Rate 13 mL/min (>60); Est Glom Filt Rate - Afr Amer 16 mL/min (>60); Estimated Creatinine Clearance 11.92 ml/min; Glucose 215 mg/dL (74-106); Potassium 5.2 mmol/L (3.5-5.1); Sodium Level 135 mmol/L (136-145)
[2024-07-24] MEDS: Furosemide 20 MG/2 ML VIAL IV (17:48)
[2024-07-24] MEDS: Budesonide Respules 0.5 MG/2 ML AMPUL.NEB. INHALATION (20:08)
--- NOTE | 2024-07-24 20:24 | PCM.HOSP.N ---
Hospitalist Note Guiac returned positive, s/p 1 u PRBC. Will change to clears, add IV protonix, hold plavix, repeat CBC in AM, request GI evaluation but will not transition to NPO status as Dr. Alfaro not available until Friday.
[2024-07-24] MEDS: Atorvastatin Calcium 20 MG Tablet PO (20:34)
[2024-07-24] MEDS: Gabapentin 800 MG Tablet PO (20:34)
[2024-07-24 21:34] LABS: Bedside Glucose 287 mg/dL (74-106)
[2024-07-24] MEDS: Pantoprazole Sodium 40 MG in 0.9% Normal Saline (100mL MB+) 100 ML 330 MG IV (21:34)
[2024-07-24 21:42] LABS: Bedside Glucose 281 mg/dL (74-106)
[2024-07-24 23:36] LABS: Bedside Glucose 239 mg/dL (74-106)
[2024-07-25] MEDS: MELATONIN 3 MG TABLET PO (00:21)
[2024-07-25] MEDS: busPIRone 15 MG TABLET 7.5 MG PO ×3 (03:03→22:11)
[2024-07-25 03:42] VITALS: BP 128/51; PULSE 63; RESP 18; TEMP 36.1; O2SAT 100
[2024-07-25 04:50] VITALS: BMI 17.1
[2024-07-25] MEDS: Insulin Lispro 100 UNIT/ML INSULN.PEN SC ×3 (06:42→22:15)
[2024-07-25 07:03] LABS: Bedside Glucose 270 mg/dL (74-106)
[2024-07-25 07:09] LABS: Absolute Lymphocyte Count 1.26 X10^3/uL (0.83-4.51); Absolute Neutrophil Count 7.1 X10^3/uL (2.0-7.7); Basophil# 0.02 X10^3/uL; Basophil% 0.2 % (0-1); Eosinophil# 0.06 X10^3/uL; Eosinophils% 0.6 % (0-5); Hematocrit 26.8 % (37-47); Lymphocyte # 1.26 X10^3/ul (0.83-4.51); Lymphocyte % 13.5 % (19-41); Mean Corp Hgb Conc 29.9 g/dL (32-36); Mean Corpuscular Hgb 28.5 pg (27.0-32.0); Mean Corpuscular Volume 95.4 fL (81-99); Monocyte# 0.85 X10^3/uL; Monocyte% 9.1 % (0-10); NRBC Flagged by Analyzer 0.3 % (0-5); Neutrophil # 7.07 X10^3/uL (2.7-7.7); Neutrophil % 75.8 % (47-70); Platelet Count 204 K/mm3 (150-450); RBC Distribution Width CV 15.1 % (11.6-14.6); RBC Distribution Width SD 53.3 fl (35.1-43.9); Red Blood Count 2.81 M/mm3 (4.2-5.4); White Blood Count 9.3 K/mm3 (4.4-11.0)
[2024-07-25 07:32] LABS: Anion Gap 10 (5-15); BUN 52 mg/dL (7-18); BUN/Creat Ratio 13.8 RATIO (10-20); Calcium,Total 5.7 mg/dL (8.5-10.1); Chloride 97 mmol/L (98-107); Creatinine, Serum 3.77 mg/dL (0.55-1.02); EST Glomerular Filtration Rate 13 mL/min (>60); Est Glom Filt Rate - Afr Amer 16 mL/min (>60); Estimated Creatinine Clearance 11.47 ml/min; Glucose 275 mg/dL (74-106); Potassium 5.1 mmol/L (3.5-5.1); Sodium Level 130 mmol/L (136-145)
[2024-07-25] MEDS: Pantoprazole Sodium 40 MG in 0.9% Normal Saline (100mL MB+) 100 ML 330 MG IV ×2 (08:34→22:08)
[2024-07-25 08:59] VITALS: BP 125/75; PULSE 62; RESP 18; TEMP 35.8; O2SAT 98
[2024-07-25] MEDS: Calcium Gluconate IV 2 GM in 0.9% Normal Saline (100mL Bag) 100 ML IV (08:59)
[2024-07-25 09:00] VITALS: PULSE 62
[2024-07-25] MEDS: Metoprolol Tartrate 50 MG Tablet PO ×2 (09:00→22:11)
[2024-07-25] MEDS: Ergocalciferol 1.25 MG (50, 000 UNIT) Capsule PO (09:00)
[2024-07-25] MEDS: Aspirin E.C. 81 MG Tablet PO (09:00)
[2024-07-25] MEDS: predniSONE 20 MG Tablet 40 MG PO (09:01)
--- NOTE | 2024-07-25 10:23 | PCM.PN.HOSP ---
Reason for Visit Reason for Visit: Diagnoses Anemia, unspecified (07/23/24) Type 1 diabetes mellitus with diabetic chronic kidney disease (07/23/24) Hypocalcemia (07/23/24) Hyperkalemia (07/23/24) Chronic obstructive pulmonary disease with (acute) exacerbation (07/23/24) Acute kidney failure, unspecified (07/23/24) Chronic kidney disease, stage 4 (severe) (07/23/24) COVID-19 (07/23/24) Subjective Subjective Saw patient at bedside this morning, present. Patient appeared similar to yesterday. She was breathing comfortably on home 3 L nasal cannula but she continued to appear somewhat confused and was frequently pulling at her nasal cannula. notes that patient looks more comfortable than she did a few days ago and that she does have intermittent confusion at baseline, but her current confusion seems to be slightly worse than her normal. Patient knew she was in the hospital but was not able to tell me the month or why she was in the hospital. No other new concerns today. Objective Data Objective Data Vital Signs: Vital Signs Temp Pulse Resp BP Pulse Ox O2 Del Method O2 Flow Rate 96.5 F L 62 18 125/75 H 98 Nasal Cannula 2 07/25/24 08:59 07/25/24 09:00 07/25/24 08:59 07/25/24 08:59 07/25/24 08:59 07/25/24 08:59 07/25/24 08:59 Oxygen Flow Rate (L/min) 2 Oxygen Delivery Method Nasal Cannula Weight: 48.2 kg Body Mass Index (BMI) 17.1 Intake & Output: Intake and Output for Last 24 Hours 07/23/24 07/24/24 07/25/24 23:59 23:59 23:59 Intake Total 3272.25 / 3272.25 110 / 110 Balance 3272.25 / 3272.25 110 / 110 Lab / Micro Data 07/25/24 05:35 07/25/24 05:35 Labs: Laboratory Results - last 24 hr 07/24/24 07:56: Sodium 134 L, Potassium 6.2 H*, Chloride 103, Carbon Dioxide 23.0, Anion Gap 8, BUN 42 H, Creatinine 3.45 H, Estim Creat Clear Calc 12.61, Est GFR (MDRD) Af Amer 17 L, Est GFR (MDRD) Non-Af 14 L, BUN/Creatinine Ratio 12.2, Glucose 220 H, Calcium 5.7 L*, Total Bilirubin 0.40, AST 18, ALT 17, Alkaline Phosphatase 78, Total Protein 6.8, Albumin 2.9 L, Globulin 3.9, Albumin/Globulin Ratio 0.7 L 07/24/24 11:33: POC Glucose 337 H 07/24/24 15:35: Ur Random Sodium 23, Ur Random Calcium < 5.0, Urine Creatinine 78.60 07/24/24 16:12: POC Glucose 193 H 07/24/24 16:57: Sodium 135 L, Potassium 5.2 H, Chloride 103, Carbon Dioxide 24.0, Anion Gap 8, BUN 52 H, Creatinine 3.65 H, Estim Creat Clear Calc 11.92, Est GFR (MDRD) Af Amer 16 L, Est GFR (MDRD) Non-Af 13 L, BUN/Creatinine Ratio 14.2, Glucose 215 H, Calcium 5.5 L* 07/24/24 20:29: POC Glucose 281 H 07/24/24 21:16: POC Glucose 287 H 07/24/24 23:04: POC Glucose 239 H 07/25/24 05:35: WBC 9.3, RBC 2.81 L, Hgb 8.0 L, Hct 26.8 L, MCV 95.4, MCH 28.5, MCHC 29.9 L, RDW Std Deviation 53.3 H, RDW Coeff of Iron 15.1 H, Plt Count 204, MPV 11.0, Immature Gran % (Auto) 0.800, Neut % (Auto) 75.8 H, Lymph % (Auto) 13.5 L, [place] % (Auto) 9.1, Eos % (Auto) 0.6, Baso % (Auto) 0.2, Absolute Neuts (auto) 7.1, Absolute Lymphs (auto) 1.26, Nucleated RBC % 0.3, Sodium 130 L, Potassium 5.1, Chloride 97 L, Carbon Dioxide 23.0, Anion Gap 10, BUN 52 H, Creatinine 3.77 H, Estim Creat Clear Calc 11.47, Est GFR (MDRD) Af Amer 16 L, Est GFR (MDRD) Non-Af 13 L, BUN/Creatinine Ratio 13.8, Glucose 275 H, Calcium 5.7 L* 07/25/24 06:41: POC Glucose 270 H Micro: Microbiology 07/24/24 16:34 Stool Stool Occult Blood (DANYELL) - Final Occult Blood Positive 07/23/24 22:20 Mucosa - Nose SARS-CoV-2, Influenza & RSV (PCR) - Final SARS-CoV-2 (COVID 19 PCR) Radiography Diagnostic Testing: Radiology Impression Renal Ultrasound 07/24/24 05:55 IMPRESSION: No hydronephrosis. Evidence of intrinsic medical renal disease. Electronically Signed: Star Patiño MD at 19:49 EDT , Rhythm Strip Rhythm Strip: Sinus Rhythm Rate: 62 Ectopy: None Physical Exam Const alert and no apparent distress Constitutional Narrative: Elderly female, thin and somewhat cachectic appearing, appears older than stated age, sitting up in bed, anxious and somewhat confused appearing, not answering all questions appropriately for me but in no acute distress. Similar to yesterday. General Appearance: cooperative HEENT normocephalic, head/scalp atraumatic, hearing grossly normal bilaterally and nasal mucous membranes and turbinates normal Eyes PERRL, EOMs intact bilaterally and conjunctivae normal Neck full ROM Chest inspection of chest normal Resp normal respiratory effort and no use of accessory muscles Resp Narrative: Breathing comfortably on baseline 3 L nasal cannula at rest. Mildly decreased breath sounds bilaterally throughout with mild crackles noted. No wheezing noted. Stable. Cardio regular rate, regular rhythm, no murmurs and peripheral pulses 2+ throughout GI normal to inspection, nondistended, normoactive bowel sounds, soft to palpation, non-tender and non-distended Back/Spine normal ROM Extremity normal to inspection, full ROM and no pedal edema Skin no rashes or lesions noted Neuro no focal motor deficits and no sensory deficits noted Psych Mood & Affect: anxious Assessment & Plan Assessment/Plan (1) COVID: (2) COPD exacerbation: (3) UMA (acute kidney injury): (4) Hypocalcemia: (5) Anemia, normocytic normochromic: PLAN: Plan Patient is a 63-year-old female who presented [facility] ED on 07/23/2024 with worsening fatigue and shortness of breath. 1. COVID-19 pneumonia with COPD exacerbation and mild acute on chronic hypoxic respiratory failure ? Requires 3 L nasal cannula at baseline. COVID-19 positive on admit. Chest x-ray on admit showed diffuse emphysema, mild cardiomegaly with hazy opacities in mid lungs bilaterally and interstitial disease in lower lobes concerning for interstitial edema. Procalcitonin 0.11. CRP elevated at 62. Patient weaned back to baseline 3 L nasal cannula on 07/24 and was breathing comfortably on this on 07/25. Treated with IV steroids on admission given concern for COPD exacerbation but not have concern that steroids may be causing acute encephalopathy as noted below; steroids discontinued on 07/25. Low concern for superimposed bacterial infection, no need for antibiotics. Continue home inhalers. 2. UMA on CKD stage IV ? Nephrology following. Creatinine 3.66 on admit, baseline 2.5-2.7. Renal ultrasound unremarkable. BNP elevated at 2478 but patient notably appeared euvolemic on exam. Last echo in 2019 with EF 35%, no diastolic dysfunction, moderate pulmonary hypertension, no other significant abnormalities. Unclear if mild creatinine elevation is due to mild hypovolemia from COVID infection versus mild cardiorenal syndrome from volume overload. Given dose of IV Lasix 20 mg x 1 on 07/24 but creatinine remained stable around 3.6 on 07/25, will hold on further diuretics. Given 500 cc bolus on 07/25. Repeat echo ordered. Has had marginal urine output. Continue to monitor daily BMP and urine output. Appreciate further nephrology recommendations. 3. Acute on chronic normocytic anemia with concern for GI bleed ? Hemoglobin 7.0 on admit, baseline appears to be around 8. Suspect worsening from baseline in part due to worsening kidney function. Iron studies are consistent with iron deficiency anemia. Transfused 1 unit of blood on admission with repeat hemoglobin 8.6. Hemoglobin 8.0 on 07/25. Stool guaiac checked overnight and was positive, though patient has not had any dark or bloody bowel movements. GI consulted for consideration of EGD. Will continue to monitor CBC daily. 4. Acute encephalopathy, suspected toxic ? Patient alert and oriented to person and place but not to time since 07/24. Unclear etiology but have concern that steroids could be contributing to this. Steroids discontinued on 07/25. Has significant electrolyte abnormalities as noted below but none are typically implicated with encephalopathy. Avoid further deliriogenic medications. Monitor. 5. Hyperkalemia ? Potassium 5.4 on admit, increased to 6.2 on hospital day 2. Treated medically with repeat potassium 5.2. Presumed secondary to UMA as noted above. Continue to treat medically as needed. Appreciate nephrology recommendations. 6. Severe hypocalcemia in setting of worsening hyperparathyroidism, vitamin D deficiency ? Calcium very low on admit at around 5.5. Albumin mildly low but corrected calcium still in the 6-7 range. PTH very high at 1027, was previously 137 in January. Last calcium levels were notably in the 8-9 range in April and no prior history of hypocalcemia noted. Vitamin D level low at 11. Suspect hyperparathyroidism is at least in part due to CKD as noted above but unclear if possible new primary parathyroid etiology could be contributing. Unclear if patient is symptomatic given her encephalopathy as noted above. Treating with intermittent IV calcium doses at this point. Monitor daily calcium level. Patient sees Dr. No with endocrinology in the office for diabetes and osteoporosis; if calcium not much improved tomorrow, could consider calling Dr. No to discuss further. 7. Insulin-dependent diabetes mellitus with neuropathy ? Continue treatment with sliding scale insulin with meals while inpatient. Continue home gabapentin. 8. Suspected severe protein calorie malnutrition ? Nutrition consulted. BMI 17 on admit. Suspect some degree of pulmonary cachexia but malnutrition may be present due to poor p.o. intake as well. 9. Acute on chronic debility ? PT/OT/case management following. Lives at home with . Good therapy scores on admission, planning for home on discharge with no therapy needs. Chronic medical conditions: ? CAD s/p stenting, hypertension, hyperlipidemia: Continue home aspirin, Plavix, statin and Lopressor. ? Anxiety/depression: Continue home BuSpar. ? Tobacco abuse: Nicotine replacement therapy available as needed. Encouraged cessation. DVT prophylaxis: SCDs CODE STATUS: Full code, verified Expected disposition: TBD Total clinical time spent by myself addressing the patient's medical issues, reviewing all the data, and collaborating with patient's care team: 35 minutes. Charges/Coding Visit Charges Inpatient E&M: 89545 Subs Hosp L2
[2024-07-25 11:35] LABS: Bedside Glucose 140 mg/dL (74-106)
--- NOTE | 2024-07-25 12:18 | PN.RENAL_ITS ---
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 Objective Data Objective Data Vital Signs: Vital Signs Temp Pulse Resp BP Pulse Ox O2 Del Method O2 Flow Rate 96.5 F L 62 18 125/75 H 98 Nasal Cannula 2 07/25/24 08:59 07/25/24 09:00 07/25/24 08:59 07/25/24 08:59 07/25/24 08:59 07/25/24 08:59 07/25/24 08:59 Oxygen Flow Rate (L/min) 2 Oxygen Delivery Method Nasal Cannula Weight: 48.2 kg Body Mass Index (BMI) 17.1 Intake & Output: Intake and Output for Last 24 Hours 07/23/24 07/24/24 07/25/24 23:59 23:59 23:59 Intake Total 3272.25 / 3272.25 230 / 230 Balance 3272.25 / 3272.25 230 / 230 Lab / Micro Data 07/25/24 05:35 07/25/24 05:35 Labs: Laboratory Results - last 24 hr 07/24/24 15:35: Ur Random Sodium 23, Ur Random Calcium < 5.0, Urine Creatinine 78.60 07/24/24 16:12: POC Glucose 193 H 07/24/24 16:57: Sodium 135 L, Potassium 5.2 H, Chloride 103, Carbon Dioxide 24.0, Anion Gap 8, BUN 52 H, Creatinine 3.65 H, Estim Creat Clear Calc 11.92, E st GFR (MDRD) Af Amer 16 L, Est GFR (MDRD) Non-Af 13 L, BUN/Creatinine Ratio 14.2, Glucose 215 H, Calcium 5.5 L* 07/24/24 20:29: POC Glucose 281 H 07/24/24 21:16: POC Glucose 287 H 07/24/24 23:04: POC Glucose 239 H 07/25/24 05:35: WBC 9.3, RBC 2.81 L, Hgb 8.0 L, Hct 26.8 L, MCV 95.4, MCH 28.5, MCHC 29.9 L, RDW Std Deviation 53.3 H, RDW Coeff of Iron 15.1 H, Plt Count 204, MPV 11.0, Immature Gran % (Auto) 0.800, Neut % (Auto) 75.8 H, Lymph % (Auto) 13.5 L, [place] % (Auto) 9.1, Eos % (Auto) 0.6, Baso % (Auto) 0.2, Absolute Neuts (auto) 7.1, Absolute Lymphs (auto) 1.26, Nucleated RBC % 0.3, Sodium 130 L, Potassium 5.1, Chloride 97 L, Carbon Dioxide 23.0, Anion Gap 10, BUN 52 H, C reatinine 3.77 H, Estim Creat Clear Calc 11.47, Est GFR (MDRD) Af Amer 16 L, Est GFR (MDRD) Non-Af 13 L, BUN/Creatinine Ratio 13.8, Glucose 275 H, Calcium 5.7 L* 07/25/24 06:41: POC Glucose 270 H 07/25/24 11:00: POC Glucose 140 H Micro: Microbiology 07/24/24 16:34 Stool Stool Occult Blood (DANYELL) - Final Occult Blood Positive 07/23/24 22:20 Mucosa - Nose SARS-CoV-2, Influenza & RSV (PCR) - Final SARS-CoV-2 (COVID 19 PCR) Radiography Diagnostic Testing: Radiology Impression Renal Ultrasound 07/24/24 05:55 IMPRESSION: No hydronephrosis. Evidence of intrinsic medical renal disease. Electronically Signed: Star Patiño MD at 19:49 EDT Reading Location ID and State: [address] [place] [address] Tel , Service support , Rhythm Strip Rhythm Strip: Sinus Rhythm Rate: 62 Ectopy: None
[2024-07-25] MEDS: 0.9% Normal Saline (1000mL) 1,000 ML 75 ML IV (13:01)
[2024-07-25 14:59] VITALS: BP 126/76; PULSE 58; RESP 18; TEMP 36.1; O2SAT 99
[2024-07-25 17:17] LABS: Bedside Glucose 249 mg/dL (74-106)
[2024-07-25] MEDS: LORazepam 2 MG/ML Syringe 0.5 MG IV (20:39)
[2024-07-25] MEDS: Atorvastatin Calcium 20 MG Tablet PO (22:08)
[2024-07-25 22:11] VITALS: PULSE 108
[2024-07-25] MEDS: Gabapentin 600 MG Tablet PO (22:11)
[2024-07-25 22:48] LABS: Hematocrit 28.5 % (37-47); Hemoglobin 8.7 g/dL (12.0-15.0)
--- NOTE | 2024-07-25 23:28 | PN.HOSP_ITS ---
Hospitalist Note Patient remains intermittently agitated, pulling out her IVFs. Will administer haldol IV and once appropriate will obtain CT head as unclear reason for such significant agitation. Discussed with ENVIRONMENTAL SCIENCE INSTRUCTORworkforce staffing advisor and as soon as she is more calm then will place CT head order.
[2024-07-25 23:30] VITALS: BP 133/61; PULSE 58; O2SAT 100
[2024-07-25] MEDS: Haloperidol Lactate 5 MG/ML Vial 1 MG IV (23:53)
[2024-07-26] VITALS (45 sets, daily range): BP systolic 73–142; BP diastolic 33–118; PULSE 46–639; RESP 13–27; TEMP 32.9–36.4; O2SAT 90–100; BMI 17.1
[2024-07-26 00:05] LABS: Bedside Glucose 193 mg/dL (74-106)
--- NOTE | 2024-07-26 00:07 | CT_ITS ---
ACR Level 3 findings have been noted. An addendum which confirms receipt of the report will follow. INDICATION: Alerted mental status EXAMINATION: CT BRAIN - CT Head or Brain W/O Contrast Injection TECHNIQUE: Multiple axial images were obtained of the head with sagittal and coronal reconstructed images. Individualized dose optimization techniques were used for this CT. IV contrast dosage and agent: None. COMPARISON: 10/14/2016 CT. FINDINGS: BRAIN PARENCHYMA: Small acute subdural versus epidural hematoma in the posterior right temporal lobe measuring up to 3 mm in thickness. No evidence of a mass. CSF SPACES: The ventricles, sulci and subarachnoid cisterns are appropriate for age. CALVARIUM, SKULL BASE, PARANASAL SINUSES AND MASTOID AIR CELLS: No fracture. Mastoid air cells are clear. Visualized paranasal sinuses are unremarkable. ORBITS: The globes, extraocular muscles, optic nerves and retrobulbar fat are unremarkable. CT/Brain/Head without Contrast IMPRESSION: Small focal acute subdural versus epidural hematoma in the posterior right temporal lobe. No adjacent edema and no mass effect. Electronically Signed: Kameron Fam DO at 1:20 EDT ,
[2024-07-26] MEDS: LORazepam 2 MG/ML Syringe 1 MG IV (00:52)
[2024-07-26] MEDS: 0.9% Normal Saline (1000mL) 1,000 ML 999 ML IV (02:20)
--- NOTE | 2024-07-26 02:30 | NURSING ---
pt transfer from PCU d/t small brain bleed age indeterminate. unable to complete NIH exam, pt does not respond to stimulus, at one point she responded to noxious sternal rub but not now and only that once, 2 piv placed and pt did not flinch. pressure applied to nail bed hands and feet with no response, negative Babinski reflux, pupils 1mm and slightly sluggish, pt snoring o2 sat 100% on 2l nc, dr mckinney notified and she states that no change from her assessment of the pt when she was in pcu
[2024-07-26 02:42] LABS: Hematocrit 22.7 % (37-47); Hemoglobin 6.9 g/dL (12.0-15.0); Mean Corp Hgb Conc 30.4 g/dL (32-36); Mean Corpuscular Hgb 28.9 pg (27.0-32.0); Mean Platelet Vol. 10.8 fl (6.2-12.0); Platelet Count 164 K/mm3 (150-450); RBC Distribution Width SD 52.6 fl (35.1-43.9); Red Blood Count 2.39 M/mm3 (4.2-5.4); White Blood Count 8.3 K/mm3 (4.4-11.0)
[2024-07-26 03:19] LABS: Albumin, Serum 2.4 g/dL (3.2-5.0); BUN 59 mg/dL (7-18); BUN/Creat Ratio 15.4 RATIO (10-20); Calcium,Total 5.5 mg/dL (8.5-10.1); Chloride 100 mmol/L (98-107); Creatinine, Serum 3.84 mg/dL (0.55-1.02); EST Glomerular Filtration Rate 13 mL/min (>60); Est Glom Filt Rate - Afr Amer 15 mL/min (>60); Estimated Creatinine Clearance 11.26 ml/min; Glucose 167 mg/dL (74-106); Potassium 5.6 mmol/L (3.5-5.1); Sodium Level 131 mmol/L (136-145)
--- NOTE | 2024-07-26 03:46 | NURSING ---
called radiology to push imagining trough to [facility]
--- NOTE | 2024-07-26 04:15 | NURSING ---
called to get consent over the phone, 2 rn verify
[2024-07-26] MEDS: Calcium Gluconate IV 2 GM in 0.9% Normal Saline (100mL Bag) 100 ML IV (04:43)
[2024-07-26] MEDS: 0.9% Normal Saline (250mL Bag) 250 ML 15 ML IV (04:43)
[2024-07-26] MEDS: 0.9% Saline Lock 10 ML Syringe IV ×2 (04:43→12:40)
[2024-07-26 05:06] LABS: International Normalized Ratio 1.3; Prothrombin Time (Protime)PT. 15.7 SECONDS (11.7-14.9)
[2024-07-26 05:07] LABS: Partial Thromboplast Time 33.7 Seconds (24.1-36.2)
--- NOTE | 2024-07-26 05:15 | NURSING ---
checked rectal temp and it was 91.3, dr mckinney notified bear luis alberto applied will monitor
--- NOTE | 2024-07-26 06:10 | CT_ITS ---
INDICATION: Follow-up ICH EXAMINATION: CT BRAIN - CT Head or Brain W/O Contrast Injection TECHNIQUE: Multiple axial images were obtained of the head with sagittal and coronal reconstructed images. Individualized dose optimization techniques were used for this CT. IV contrast dosage and agent: None. COMPARISON: 07/26/2024 at 1:[address] FINDINGS: BRAIN PARENCHYMA: Small acute subdural versus epidural hematoma in the posterior right temporal lobe measuring up to 2 mm in thickness, decreased in size as compared to prior exam. No evidence of a mass. CSF SPACES: The ventricles, sulci and subarachnoid cisterns are appropriate for age. CALVARIUM, SKULL BASE, PARANASAL SINUSES AND MASTOID AIR CELLS: No fracture. Mastoid air cells are clear. Visualized paranasal sinuses are unremarkable. ORBITS: The globes, extraocular muscles, optic nerves and retrobulbar fat are unremarkable. CT/Brain/Head without Contrast IMPRESSION: Very small focal acute subdural versus epidural hematoma in the posterior right temporal lobe, decreased in size as compared to the prior CT. Electronically Signed: Kameron Fam DO at 7:50 EDT ,
--- NOTE | 2024-07-26 07:13 | NURSING ---
as pt was being wheeled down to ct at 0635 this morning she started to get restless, swinging arms and legs, not following commands, not opening eyes, at bed side suzanna responsive to him.
--- NOTE | 2024-07-26 08:04 | RAD_ITS ---
STUDY: X-RAY CHEST REASON FOR EXAM: Female, 63 years old. hypoxia TECHNIQUE: Single AP portable view of the chest. COMPARISON: 07/23/2024 FINDINGS: The lungs are clear and expanded. There is no demonstrated pleural abnormality. Normal size heart. Normal mediastinum and angelita. Normal visualized pulmonary arteries. Normal visualized aortic arch and descending thoracic aorta. Normal visualized thoracic spine. Normal visualized ribs, clavicles, and shoulders. There is no demonstrated abnormality of the visualized soft tissue structures of the upper abdomen. RAD/Chest 1 View (Portable) IMPRESSION: Normal x-ray examination of the chest. Electronically Signed: Jose Dumas MD at 8:41 EDT ,
--- NOTE | 2024-07-26 08:06 | CON.PCM.CC_ITS ---
HPI Consult Data Date of Consult: 07/26/24 HPI Narrative HPI Narrative: The patient is a 63 y/o F w/ PMHx: Tobacco use, COPD with Chronic Hypoxic Respiratory Failure 4L NC, Severe protein calorie malnutrition, Chronic anemia, IDDM with chronic neuropathy, CKD stage IV, HTN, HLD, Anxiety and Depression, CAD s/p PCI 2018 presented on 07/24 w/ worsening fatigue and SOB. She was found to be covid positive and admitted to the floor. Since that time she has had worsening confusion, tonight a CTH was ordered with evidecne of a SDH/Epidural Hematoma and admitted to the ICU. [facility] Medical History Fissure in skin of foot Adrian's sign present Tobacco abuse CKD (chronic kidney disease) stage 4, GFR 15-29 ml/min Body mass index (BMI) less than 16.5 Underweight Polyneuropathy due to type 1 diabetes mellitus Stage 4 chronic kidney disease due to type 1 diabetes mellitus Respiratory failure with hypoxia Smoking greater than 30 pack years Anemia Diabetic nephropathy, type I Hyperkalemia Renal insufficiency Diabetes Chronic obstructive pulmonary disease Essential (primary) hypertension Hypersomnia Anxiety Depression Atherosclerosis of coronary artery of [place] heart without angina pectoris NSTEMI (non-ST elevated myocardial infarction) (01/12/18) DM type 1 (diabetes mellitus, type 1) Hyperlipidemia COPD (chronic obstructive pulmonary disease) Home Medications ?Medication ?Instructions ?Recorded ?Last Taken ?Type simvastatin 40 mg tablet 40 mg PO QHS cholesterol 06/21/18 07/23/24 20:00 History albuterol sulfate 2.5 mg/3 mL 2.5 mg (3 mL) inhalation Q2H PRN 06/23/18 Unknown Rx (0.083 %) solution for nebulization PRN dyspnea, wheezing ##1 aspirin 81 mg tablet,delayed 81 mg PO DAILY heart health 12/31/19 07/23/24 20:00 History release pen needle, diabetic 32 gauge x ##1 08/29/20 Unknown Rx flash glucose scanning reader #1 ea 11/20/20 Unknown Rx (FreeStyle Eileen 2 [place]) gabapentin 800 mg tablet 800 mg PO QHS neuropathy 02/17/23 07/23/24 20:00 History blood sugar diagnostic (FreeStyle #25 ea 08/26/23 Unknown Rx Precision Jeff Strips) clopidogrel 75 mg tablet 75 mg PO DAILY #90 tabs 08/26/23 07/23/24 20:00 Rx FreeStyle Eileen 2 Sensor (flash #6 ea 08/27/23 Unknown Rx glucose sensor) nitroglycerin 0.4 mg sublingual 0.4 mg sublingual Q5-15M PRN chest 10/19/23 Unknown Rx tablet pain #25 tabs oxygen NASAL 12/03/23 Unknown History ipratropium 0.5 mg-albuterol 3 mg 3 ml inhalation Q4H PRN PRN SOB 12/29/23 Unknown Rx (2.5 mg base)/3 mL nebulization &/OR WHEEZING #180 mL soln buspirone 7.5 mg tablet 7.5 mg PO BID 30 days #60 tabs 04/15/24 07/23/24 20:00 Rx albuterol sulfate 90 mcg/actuation 2 puff inhalation Q6H PRN PRN 05/05/24 Unknown Rx aerosol inhaler Cough #8.5 grams blood-glucose sensor (Dexcom G6 #3 ea 05/12/24 Unknown Rx Sensor device) blood-glucose transmitter (Dexcom #1 ea 05/12/24 Unknown Rx G6 Transmitter device) metoprolol tartrate 50 mg tablet 50 mg PO BID #180 tabs 05/12/24 07/23/24 20:00 Rx insulin lispro 100 unit/mL 60 unit (0.6 mL) continuous 05/28/24 Unknown Rx subcutaneous solution (Humalog subcutaneous infusion .continuous U-100 Insulin) #54 mL insulin pump cart,automated,BT #10 ea 05/31/24 Unknown Rx (Omnipod 5 G6 Pods (Gen 5) subcutaneous cartridge) denosumab 60 mg/mL subcutaneous 60 mg subcut B2CPLION #1 mL 06/10/24 07/28/23 19:15 Rx syringe (Prolia) budesonide 160 mcg-glycopyr 9 2 inh inhalation BID #10.7 grams 07/20/24 Unknown Rx mcg-formot 4.8 mcg/actuation HFA inhaler (Breztri Aerosphere) Allergy/AdvReac Type Severity Reaction Status Date / Time No Known Allergies Allergy Verified 07/23/24 21:27 Family History Mother Heart disease COPD (chronic obstructive pulmonary disease) Lupus Daughter Growth disorder Down syndrome Fibromyalgia Grandfather Colon cancer Diabetes Grandmother Heart disease CVA (cerebral vascular accident) Diabetes Pulmonary disease Sister Hypertension Kidney disease Surgical History H/O: Hx of appendectomy H/O: hysterectomy History of coronary artery stent placement (02/04/18) Social History (Updated 07/24/24 @ 00:[address] Lani Samaniego MD) housing: house pets and animals: Yes pets and animals: cat(s) Smoking Status: Light Smoker (<10/day) how long ago did patient quit smoking: Since 05/2024 cut back and has only had ~ 10 cigarettes since then. quit status: considering quitting alcohol intake: never substance use type: does not use caffeine: Yes Type: carbonated beverages Number of servings: 4 what type of physical activity do you participate in: none seatbelt use: always do you feel safe at home: Yes Objective Data Objective Data Vital Signs: Vital Signs Last response 3 Temperature 35.9 C L 07/26/24 08:02 Temperature Source Temporal 07/26/24 08:02 Pulse Rate 55 L 07/26/24 08:02 Pulse Strength Weak (1+) 07/24/24 21:52 Respiratory Rate 26 H 07/26/24 08:02 Respiratory Effort Normal, Non-Labored 07/25/24 22:00 Respiratory Depth Normal 07/25/24 22:00 Respiratory Pattern Normal 07/25/24 22:00 Blood Pressure 96/62 07/26/24 08:02 Blood Pressure Mean 73 07/26/24 08:02 Blood Pressure Source Monitor 07/26/24 08:02 Blood Pressure Position Semi-Fowlers 07/26/24 08:02 Blood Pressure Location Left Arm 07/26/24 08:02 Pulse Ox 93 07/26/24 08:02 Oxygen Delivery Method Nasal Cannula 07/26/24 08:02 Oxygen Flow Rate (L/min) 3 07/26/24 08:02 I&O: I&O Last 24 Hours 3 07/25/24 07/25/24 07/26/24 11:59 23:59 11:59 Intake Total 230 / 340 110 / 340 0 / 0 Output Total 0 / 0 Balance 230 / 340 110 / 340 2120 / 2120 I&O: Total Stay 3 07/23/24 21:22 thru 07/26/24 08:02 Intake Total 5732.25 Output Total 0 Balance 5732.25 Current Meds Ordered / Administered: Current meds ordered / Administered 3 Generic Name Dose Route Start Last Admin Trade Name Freq PRN Reason Stop Dose Admin Acetaminophen 650 mg 07/24/24 00:57 Acetaminophen 325 Mg Tablet PO Q4H PRN PRN Fever, pain 1-08/12 Al Hydrox/Mg Hydrox/Simethicone 30 ml 07/24/24 00:57 Mag /Aluminum/Simeth Wch Udc 30 Ml Oral.Susp PO Q6H PRN PRN Gastric Burning Albuterol Sulfate 2.5 mg 07/24/24 00:57 Albuterol 2.5 Mg/3 Ml Vial.Neb. INHALATION Q2H PRN PRN Dyspnea, wheezing Atorvastatin Calcium 20 mg 07/24/24 22:00 07/25/24 22:08 Atorvastatin Calcium 20 Mg Tablet PO 20 mg QHS LANCE Administration Budesonide 0.5 mg 07/24/24 00:57 07/24/24 20:08 Budesonide Respules 0.5 Mg/2 Ml Ampul.Neb. INHALATION 0.5 mg BID.RT LANCE Administration Buspirone HCl 7.5 mg 07/24/24 10:00 07/25/24 22:11 Buspirone 15 Mg Tablet PO 7.5 mg BID LANCE Administration Ergocalciferol 1.25 mg 07/25/24 10:00 07/25/24 09:00 Ergocalciferol 1.25 Mg (50, 000 Unit) Capsule PO 1.25 mg Q7D LANCE Administration Gabapentin 600 mg 07/25/24 22:00 07/25/24 22:11 Gabapentin 600 Mg Tablet PO 600 mg QHS LANCE Administration Glucagon 1 mg 07/24/24 00:57 Glucagon 1 Mg/Ml Syringe IM X1 PRN HYPOGLYCEMIA Protocol Guaifenesin 20 ml 07/24/24 00:57 Guaifenesin 10 Ml Udc (200mg/10ml) PO Q4H PRN PRN COUGH Hydralazine HCl 10 - 20 mg 07/26/24 01:49 Hydralazine 20 Mg/Ml Vial IV Q10M PRN to maintain SBP < 140mmHg Dextrose 250 mls @ 0 mls/hr 07/24/24 00:57 Dextrose 10%-Water IV .Q0M PRN HYPOGLYCEMIA Protocol As Directed Sodium Chloride 250 mls @ 15 mls/hr 07/24/24 01:23 07/26/24 04:43 IV 15 mls/hr .[id number] PRN Administration Additional IVPB Infusion Sodium Chloride 250 mls @ 15 mls/hr 07/24/24 01:23 IV .[id number] PRN Saline Flush Pantoprazole Sodium 40 mg/ 110 mls @ 330 mls/hr 07/24/24 20:30 07/25/24 22:28 Sodium Chloride IV Infused Q12 LANCE Infusion Insulin Human Lispro 0 unit 07/24/24 07:00 07/25/24 22:15 Insulin Lispro 100 Unit/Ml Insuln.Pen SC 2 u ACHS LANCE Administration Protocol Labetalol HCl 20 mg 07/26/24 01:49 Labetalol 100 Mg/20 Ml Vial IV Q10M PRN maintain SBP < 140mmhg Melatonin 3 mg 07/24/24 00:57 07/25/24 00:21 Melatonin 3 Mg Tablet PO 3 mg QHS PRN PRN Administration INSOMNIA Metoprolol Tartrate 50 mg 07/24/24 10:00 07/25/24 22:11 Metoprolol Tartrate 50 Mg Tablet PO 50 mg BID LANCE Administration Protocol Ondansetron HCl 4 mg 07/24/24 00:57 Ondansetron 4 Mg/2 Ml Vial IV Q8H PRN PRN NAUSEA/VOMITING Prochlorperazine Edisylate 5 mg 07/24/24 00:57 Prochlorperazine 10 Mg/2 Ml Vial IV Q4H PRN PRN Breakthrough Nausea/Vomiting Sodium Chloride 10 - 40 ml 07/24/24 01:23 07/26/24 04:43 0.9% Saline Lock 10 Ml Syringe IV 40 ml UD PRN Administration SALINE FLUSH Physical Exam Const General Appearance: lethargic and ill appearing HEENT normocephalic and head/scalp atraumatic Eyes PERRL and EOMs intact bilaterally Chest inspection of chest normal Chest Narrative: No audible wheezing nor tachypnea Cardio regular rate and regular rhythm Extremity no clubbing, cyanosis or edema Neuro moves all extremities Lab / Micro Data 07/26/24 02:33 07/26/24 02:33 Labs: Laboratory Results - last 24 hr 07/23/24 23:47: Crossmatch See Detail 07/25/24 11:00: POC Glucose 140 H 07/25/24 16:21: POC Glucose 249 H 07/25/24 22:15: POC Glucose 193 H 07/25/24 22:43: Hgb 8.7 L, Hct 28.5 L 07/26/24 02:33: WBC 8.3, RBC 2.39 L, Hgb 6.9 L, Hct 22.7 L, MCV 95.0, MCH 28.9, MCHC 30.4 L, RDW Std Deviation 52.6 H, RDW Coeff of Iron 15.0 H, Plt Count 164, MPV 10.8, Sodium 131 L, Potassium 5.6 H, Chloride 100, Carbon Dioxide 20.0 L, B UN 59 H, Creatinine 3.84 H, Estim Creat Clear Calc 11.26, Est GFR (MDRD) Af Amer 15 L, Est GFR (MDRD) Non-Af 13 L, BUN/Creatinine Ratio 15.4, Glucose 167 H, C alcium 5.5 L*, Phosphorus 7.0 H, Albumin 2.4 L 07/26/24 04:37: PT 15.7 H, INR 1.3, APTT 33.7 Rhythm Strip Rhythm Strip: Sinus Rhythm Rate: 62 Ectopy: None Imaging Radiology Impression Brain CT 07/26/24 00:07 IMPRESSION: Small focal acute subdural versus epidural hematoma in the posterior right temporal lobe. No adjacent edema and no mass effect. Electronically Signed: Kameron Fam DO at 1:20 EDT , ADDENDUM: 07/26/24 0130 IMPRESSION: Small focal acute subdural versus epidural hematoma in the posterior right temporal lobe. No adjacent edema and no mass effect. N.B. : Alyssia Sheikh RN, confirmed on 07/26/2024 01:24:03 (ET) that the healthcare facility has received the radiology report. Electronically Signed: Kameron Fam DO at 1:20 EDT , Brain CT 07/26/24 06:10 IMPRESSION: Very small focal acute subdural versus epidural hematoma in the posterior right temporal lobe, decreased in size as compared to the prior CT. Electronically Signed: Kameron Fam, DO at 7:50 EDT , Assessment and Plan . Assessment and plan: Subdural/Epidural Hematoma Acute on Chronic Hypoxic Respiratory Failure GI bleed AMS Covid 19 Positive UMA Hyperkalemia Plan - Admit ICU - Serial CT imaging - I recommend transfer for HLOC to outside facility w/ Neurosurgery and in a neuro ICU - Given steroids empirically and abx before as well, will resume rocephin/azithro/methlypred - On baseline 02 3-4 L - BID PPI - GI is consulted for GI bleed - Nephrology consulted Critical Care Time: 62 minutes The entirety of this encounter was done via Telemedicine
[2024-07-26] MEDS: Pantoprazole Sodium 40 MG in 0.9% Normal Saline (100mL MB+) 100 ML 330 MG IV (08:53)
[2024-07-26 09:12] LABS: Base Excess -11 mmol/L (-2 to +2); Bicarbonate 20.1 mmol/L (22-26); Blood Gas Specimen Type ART; Mode Not entered; O2 Delivery Device Not entered; PO2 119 mmHG (75-100); SITE L Radial; SO2 95 % (95-99); Total Carbon Dioxide 23 mmol/L; pCO2 82.1 mmHg (35-45)
[2024-07-26] MEDS: Ceftriaxone 1 GM/50 ML BAG IV (09:25)
[2024-07-26] MEDS: Azithromycin 500 MG in Dextrose 5%-Water (250mL Bag) 250 ML 250 MG IV (10:17)
[2024-07-26] MEDS: Sodium Bicarbonate 150 MEQ in Dextrose 5%-Water (1000mL Bag) 1,000 ML 60 MEQ IV (10:17)
[2024-07-26] MEDS: Etomidate 20 MG/10 ML Vial IV (11:00)
[2024-07-26] MEDS: fentaNYL drip 100 ML 5 MCG CONT INF (11:14)
--- NOTE | 2024-07-26 11:33 | EX.PCM.CONCC ---
HPI Consult Data Date of Consult: 07/26/24 HPI Narrative Reason for Consultation: Respiratory failure HPI Narrative: The patient is a 63-year-old female, with a history as outlined below, who presented initially to the emergency department on July 23 with generalized malaise, fatigue and shortness of breath. The patient has a documented history of COPD, chronic hypoxemic respiratory failure with a baseline oxygen requirement of 4 L/min, chronic anemia, diabetes mellitus, chronic kidney disease, coronary artery disease status post PCI, hypertension and hyperlipidemia. The patient is followed in the pulmonary medicine clinic on an outpatient basis and is maintained on a triple therapy inhaler regimen. On presentation to the emergency department, the patient was documented to be afebrile and hemodynamically stable. Initial laboratory evaluation revealed a white blood cell count of 6500 with a hemoglobin of 7.0 g/dL. Platelet count was within normal limits. Chemistry profile was notable for a sodium of 134, potassium of 5.4, BUN of 44 and creatinine of 3.6. BNP was elevated at 2478. Urine analysis was positive for leukocyte esterase and 1+ urine bacteria. COVID PCR was found to be positive. Chest x-ray demonstrated bilateral emphysematous changes with scant interstitial airspace opacities. The patient was initially admitted to the hospital and placed on Decadron, bronchodilators and antimicrobials. Nephrology consultation was obtained. [facility] History Fissure in skin of foot Adrian's sign present Tobacco abuse CKD (chronic kidney disease) stage 4, GFR 15-29 ml/min Body mass index (BMI) less than 16.5 Underweight Polyneuropathy due to type 1 diabetes mellitus Stage 4 chronic kidney disease due to type 1 diabetes mellitus Respiratory failure with hypoxia Smoking greater than 30 pack years Anemia Diabetic nephropathy, type I Hyperkalemia Renal insufficiency Diabetes Chronic obstructive pulmonary disease Essential (primary) hypertension Hypersomnia Anxiety Depression Atherosclerosis of coronary artery of [place] heart without angina pectoris NSTEMI (non-ST elevated myocardial infarction) (01/12/18) DM type 1 (diabetes mellitus, type 1) Hyperlipidemia COPD (chronic obstructive pulmonary disease) Home Medications ?Medication ?Instructions ?Recorded ?Last Taken ?Type simvastatin 40 mg tablet 40 mg PO QHS cholesterol 06/21/18 07/23/24 20:00 History albuterol sulfate 2.5 mg/3 mL 2.5 mg (3 mL) inhalation Q2H PRN 06/23/18 Unknown Rx (0.083 %) solution for nebulization PRN dyspnea, wheezing ##1 aspirin 81 mg tablet,delayed 81 mg PO DAILY heart health 12/31/19 07/23/24 20:00 History release pen needle, diabetic 32 gauge x ##1 08/29/20 Unknown Rx /32 flash glucose scanning reader #1 ea 11/20/20 Unknown Rx (FreeStyle Eileen 2 [place]) gabapentin 800 mg tablet 800 mg PO QHS neuropathy 02/17/23 07/23/24 20:00 History blood sugar diagnostic (FreeStyle #25 ea 08/26/23 Unknown Rx Precision Jeff Strips) FreeStyle Eileen 2 Sensor (flash #6 ea 08/27/23 Unknown Rx glucose sensor) nitroglycerin 0.4 mg sublingual 0.4 mg sublingual Q5-15M PRN chest 10/19/23 Unknown Rx tablet pain #25 tabs oxygen NASAL 12/03/23 Unknown History ipratropium 0.5 mg-albuterol 3 mg 3 ml inhalation Q4H PRN PRN SOB 12/29/23 Unknown Rx (2.5 mg base)/3 mL nebulization &/OR WHEEZING #180 mL soln buspirone 7.5 mg tablet 7.5 mg PO BID 30 days #60 tabs 04/15/24 07/23/24 20:00 Rx albuterol sulfate 90 mcg/actuation 2 puff inhalation Q6H PRN PRN 05/05/24 Unknown Rx aerosol inhaler Cough #8.5 grams blood-glucose sensor (Dexcom G6 #3 ea 05/12/24 Unknown Rx Sensor device) blood-glucose transmitter (Dexcom #1 ea 05/12/24 Unknown Rx G6 Transmitter device) metoprolol tartrate 50 mg tablet 50 mg PO BID #180 tabs 05/12/24 07/23/24 20:00 Rx insulin lispro 100 unit/mL 60 unit (0.6 mL) continuous 05/28/24 Unknown Rx subcutaneous solution (Humalog subcutaneous infusion .continuous U-100 Insulin) #54 mL insulin pump cart,automated,BT #10 ea 05/31/24 Unknown Rx (Omnipod 5 G6 Pods (Gen 5) subcutaneous cartridge) denosumab 60 mg/mL subcutaneous 60 mg subcut [id number] #1 mL 06/10/24 07/28/23 19:15 Rx syringe (Prolia) budesonide 160 mcg-glycopyr 9 2 inh inhalation BID #10.7 grams 07/20/24 Unknown Rx mcg-formot 4.8 mcg/actuation HFA inhaler (Breztri Aerosphere) clopidogrel 75 mg tablet 75 mg PO DAILY #90 tabs 07/26/24 Unknown Rx Allergy/AdvReac Type Severity Reaction Status Date / Time No Known Allergies Allergy Verified 07/23/24 21:27 Family History Mother Heart disease COPD (chronic obstructive pulmonary disease) Lupus Daughter Growth disorder Down syndrome Fibromyalgia Grandfather Colon cancer Diabetes Grandmother Heart disease CVA (cerebral vascular accident) Diabetes Pulmonary disease Sister Hypertension Kidney disease Surgical History H/O: Hx of appendectomy H/O: hysterectomy History of coronary artery stent placement (02/04/18) Social History (Updated 07/24/24 @ 00:[address] Lani Samaniego MD) housing: house pets and animals: Yes pets and animals: cat(s) Smoking Status: Light Smoker (<10/day) how long ago did patient quit smoking: Since 05/2024 cut back and has only had ~ 10 cigarettes since then. quit status: considering quitting alcohol intake: never substance use type: does not use caffeine: Yes Type: carbonated beverages Number of servings: 4 what type of physical activity do you participate in: none seatbelt use: always do you feel safe at home: Yes Lab / Micro Data 07/26/24 02:33 07/26/24 02:33 Labs: Laboratory Results - last 24 hr 07/23/24 23:47: Crossmatch See Detail 07/25/24 11:00: POC Glucose 140 H 07/25/24 16:21: POC Glucose 249 H 07/25/24 22:15: POC Glucose 193 H 07/25/24 22:43: Hgb 8.7 L, Hct 28.5 L 07/26/24 02:33: WBC 8.3, RBC 2.39 L, Hgb 6.9 L, Hct 22.7 L, MCV 95.0, MCH 28.9, MCHC 30.4 L, RDW Std Deviation 52.6 H, RDW Coeff of Iron 15.0 H, Plt Count 164, MPV 10.8, Sodium 131 L, Potassium 5.6 H, Chloride 100, Carbon Dioxide 20.0 L, BUN 59 H, Creatinine 3.84 H, Estim Creat Clear Calc 11.26, Est GFR (MDRD) Af Amer 15 L, Est GFR (MDRD) Non-Af 13 L, BUN/Creatinine Ratio 15.4, Glucose 167 H, Calcium 5.5 L*, Phosphorus 7.0 H, Albumin 2.4 L 07/26/24 04:37: PT 15.7 H, INR 1.3, APTT 33.7 ABG Data ABG results: ABG 07/26/24 09:06 Specimen Type ART Sample Site L Radial pH 7.00 L* Bicarbonate Actual 20.1 L Total CO2 23 Base Excess -11 L O2 Saturation 95 O2 % 4.0 ABG pCO2 82.1 H* ABG pO2 119 H O2 Delivery Device Not entered Vent Mode Not entered Crit Call To/Read Back Yes Blood Gas Notified Whom José Miguel Blood Gas Notified Time 09:09:17 Rhythm Strip Rhythm Strip: Sinus Rhythm Rate: 62 Ectopy: None Imaging Radiology Impression Brain CT 07/26/24 00:07 IMPRESSION: Small focal acute subdural versus epidural hematoma in the posterior right temporal lobe. No adjacent edema and no mass effect. Electronically Signed: Kameron Fam DO at 1:20 EDT Reading Location ID and State: [facility] / [place] Tel , Service support , ADDENDUM: 07/26/24 0130 IMPRESSION: Small focal acute subdural versus epidural hematoma in the posterior right temporal lobe. No adjacent edema and no mass effect. N.B. : Alyssia Sheikh RN, confirmed on 07/26/2024 01:24:03 (ET) that the healthcare facility has received the radiology report. Electronically Signed: Kameron Fam DO at 1:20 EDT , Brain CT 07/26/24 06:10 IMPRESSION: Very small focal acute subdural versus epidural hematoma in the posterior right temporal lobe, decreased in size as compared to the prior CT. Electronically Signed: Kameron Fam DO at 7:50 EDT , Chest X-Ray 07/26/24 08:04 IMPRESSION: Normal x-ray examination of the chest. Electronically Signed: Jose Dumas MD at 8:41 EDT ,
[2024-07-26] MEDS: Norepinephrine 8 MG in 0.9% Normal Saline (250mL Bag) 242 ML 9.4 MG CONT INF (11:45)
[2024-07-26] MEDS: Propofol 10MG/Ml 1,000 MG/100 ML Bottle 2.9 MG CONT INF (11:45)
--- NOTE | 2024-07-26 11:45 | RAD_ITS ---
STUDY: X-RAY CHEST REASON FOR EXAM: Female, 63 years old. Line placement -- ETT OG TLC TECHNIQUE: Single AP portable view of the chest. COMPARISON: 07/26/2024 at 0808 FINDINGS: Interval placement of endotracheal tube with the tip approximately 2 cm above the heather. Interval placement right internal jugular central line the tip of the catheter overlying the superior vena cava. No pneumothorax. The lungs are clear and expanded. There is no demonstrated pleural abnormality. Normal size heart. Normal mediastinum and angelita. Normal visualized pulmonary arteries. Normal visualized aortic arch and descending thoracic aorta. Normal visualized thoracic spine. Normal visualized ribs, clavicles, and shoulders. There is no demonstrated abnormality of the visualized soft tissue structures of the upper abdomen. RAD/CXR for Line Placement IMPRESSION: Interval placement of endotracheal tube with the tip above the heather. Interval placement of right internal jugular central line with tip catheter overlying the superior vena cava with no pneumothorax. No active pulmonary disease. Electronically Signed: Jose Dumas MD at 12:10 EDT ,
--- NOTE | 2024-07-26 11:51 | PCM.OP.PRO ---
Procedure Report Date of Procedure: 07/26/24 Intubation Indication: Respiratory failure Consent was obtained from: The patient was placed in the appropriate sniffing position. Preoxygenated sedation via [id number] was provided for a minimum of 3 minutes. The patient had continuous cardiac as well as pulse oximetry monitoring during the procedure. Procedure sedation was provided by the administration of 20 mg of etomidate. Direct laryngoscopy was then performed using a number 3 MAC blade, which revealed a grade 1 view. A 7.5 mm endotracheal tube was visualized advancing between the cords to the level of 24 cm at the lip. The stylette was then removed and discarded. Tube placement was confirmed by fogging in the tube along with equal and bilateral breath sounds. Colorimetric change was visualized on the CO2 meter. The cuff was then inflated and the tube secured using a commercially available device. A good pulse oximetry waveform was seen on the monitor throughout the procedure. A portable chest x-ray has been ordered to confirm appropriate placement. The patient tolerated the procedure well. Procedures Pulmonary Pulmonary Procedures /Diagnostic Testin Insert emergency airway
--- NOTE | 2024-07-26 11:52 | PCM.OP.PRO ---
Procedure Report Date of Procedure: 07/26/24 Central Venous Catheter Indication: Hypotension Consent was obtained from: A time-out was completed verifying correct patient, procedure, site, positioning, and special equipment if applicable. The patient was placed in a dependent position appropriate for central line placement based on the vein to be cannulated. The patient's right neck was prepped and draped in a sterile fashion. A triple-lumen catheter was introduced into the right IJ using the Seldinger technique and under ultrasound guidance. The catheter was threaded smoothly over the guidewire and appropriate blood return was obtained. Each lumen of the catheter was evacuated of air and flushed with sterile saline. The catheter was then sutured in place to the skin and a sterile dressing applied. Chest x-ray to confirm appropriate positioning is pending. ULTRASOUND GUIDANCE STATEMENT (Vascular Access): I performed ultrasound image acquisition and interpretation for needle placement during the procedure. The vessel was identified and found to be free of thrombosis by compression technique. A safe point of entry was marked at the skin in an angle for axis was determined. The needle was guided by obtaining free-flowing fluid and by real-time visualization. Procedures Hospitalists Procedures: [id number] Insert Non-tunnel CV Cath
--- NOTE | 2024-07-26 11:54 | PN.CC_ITS ---
Assessment & Plan Assessment/Plan (1) COVID: PLAN: Plan RECOMMENDATIONS: 1. Proceed with intubation. Obtain follow-up ABG in 1 hour. 2. Obtain and send sputum for culture. 3. Broaden antimicrobials as ordered. 4. Obtain follow-up head imaging per neurology recommendations. 5. Continue PPI therapy. 6. Continue scheduled bronchodilators. 7. Vasopressor support, if needed, to maintain hemodynamic stability. 8. Continue sodium bicarbonate infusion per nephrology. 9. Awaiting transfer to tertiary care facility. IMPRESSIONS: 1. Acute on chronic respiratory failure with hypoxemia and hypercapnia Most likely secondary to COPD exacerbation related to underlying COVID-19 pneumonia. Given the patient's clinical decompensation, she will also be placed on empiric antibiotics along with Decadron. Ultimately, due to her underlying neurologic status, the patient required intubation on the morning of July 26. 2. Worsening encephalopathy/newly identified intracranial hematoma Neurology is currently following. As noted above, the patient's clinical status worsened this morning and she was intubated. Plan at this time to transfer to tertiary care facility. Continue supportive measures as noted above. 3. Acute on chronic anemia Gastroenterology consultation is pending. Continue PPI therapy. Transfuse if hemoglobin drops below 7 g/dL. 4. Acute on chronic kidney disease Nephrology is following to assist with medical management. Continue supportive measures as noted above. 5. History of diabetes mellitus/coronary artery disease/anxiety/depression/chronic tobacco dependency Complicates care, management, recovery and prognosis. Continue supportive measures as noted above. TIME: 42 minutes of critical care time, independent of procedures, was spent addressing the patient's acute on chronic respiratory failure with hypoxemia and hypercapnia, worsening encephalopathy with newly identified intracranial hematoma, acute on chronic anemia, acute on chronic kidney disease, review of all data and collaboration with the care team. Subjective Subjective The patient is a 63-year-old female, with a history as outlined below, who presented initially to the emergency department on July 23 with generalized malaise, fatigue and shortness of breath. The patient has a documented history of COPD, chronic hypoxemic respiratory failure with a baseline oxygen requirement of 4 L/min, chronic anemia, diabetes mellitus, chronic kidney disease, coronary artery disease status post PCI, hypertension and hyperlipidemia. The patient is followed in the pulmonary medicine clinic on an outpatient basis and is maintained on a triple therapy inhaler regimen. On presentation to the emergency department, the patient was documented to be afebrile and hemodynamically stable. Initial laboratory evaluation revealed a white blood cell count of 6500 with a hemoglobin of 7.0 g/dL. Platelet count was within normal limits. Chemistry profile was notable for a sodium of 134, potassium of 5.4, BUN of 44 and creatinine of 3.6. BNP was elevated at 2478. Urine analysis was positive for leukocyte esterase and 1+ urine bacteria. COVID PCR was found to be positive. Chest x-ray demonstrated bilateral emphysematous changes with scant interstitial airspace opacities. The patient was initially admitted to the hospital and placed on Decadron, bronchodilators and antimicrobials. Nephrology consultation was obtained. Following her admission to the hospital, the patient has been demonstrating worsening confusion. Head CT was obtained which demonstrated a small focal acute subdural versus epidural hematoma in the posterior right temporal lobe. ABG was obtained which demonstrated a pH of 7.0 with a pCO2 of 82 and pO2 of 119. The patient was subsequently transferred to the medical intensive care unit. Unfortunately, the patient remained anxious and agitated and made frequent attempts to rip off the BiPAP that she was started on. Therefore, following a discussion with the patient's , the decision was made to proceed with intubation. It does appear also that the patient was found to be positive for occult blood in her stool and has been transfused 3 units of packed red blood cells throughout her hospitalization. Objective Data Objective Data The patient's most recent lab work, culture data and imaging studies have all been personally reviewed. COVID PCR was positive on July 23. Stool for occult blood was positive on July 24. Sputum culture is currently pending. Vital Signs: Vital Signs Temp Pulse Resp BP Pulse Ox O2 Del Method O2 Flow Rate 96.6 F L 57 L 16 74/40 L 100 Mechanical Ventilator 4 07/26/24 09:00 07/26/24 11:45 07/26/24 11:45 07/26/24 11:45 07/26/24 11:45 07/26/24 11:45 07/26/24 09:31 FiO2 50 07/26/24 11:45 Oxygen Flow Rate (L/min) 4 Oxygen Delivery Method Mechanical Ventilator Weight: 106 lb 4.205 oz Body Mass Index (BMI) 17.1 Intake & Output: Intake and Output for Last 24 Hours 07/24/24 07/25/24 07/26/24 23:59 23:59 23:59 Intake Total 3272.25 / 3272.25 340 / 340 2537.58 / 2537.58 Output Total 0 / 0 Balance 3272.25 / 3272.25 340 / 340 2537.58 / 2537.58 Lab / Micro Data Attestation: I reviewed the patient's lab results. 07/26/24 02:33 07/26/24 02:33 Labs: Laboratory Results - last 24 hr 07/23/24 23:47: Crossmatch See Detail 07/25/24 16:21: POC Glucose 249 H 07/25/24 22:15: POC Glucose 193 H 07/25/24 22:43: Hgb 8.7 L, Hct 28.5 L 07/26/24 02:33: WBC 8.3, RBC 2.39 L, Hgb 6.9 L, Hct 22.7 L, MCV 95.0, MCH 28.9, MCHC 30.4 L, RDW Std Deviation 52.6 H, RDW Coeff of Iron 15.0 H, Plt Count 164, MPV 10.8, Sodium 131 L, Potassium 5.6 H, Chloride 100, Carbon Dioxide 20.0 L, B UN 59 H, Creatinine 3.84 H, Estim Creat Clear Calc 11.26, Est GFR (MDRD) Af Amer 15 L, Est GFR (MDRD) Non-Af 13 L, BUN/Creatinine Ratio 15.4, Glucose 167 H, C alcium 5.5 L*, Phosphorus 7.0 H, Albumin 2.4 L 07/26/24 04:37: PT 15.7 H, INR 1.3, APTT 33.7 Micro: Microbiology 07/24/24 16:34 Stool Stool Occult Blood (DANYELL) - Final Occult Blood Positive 07/23/24 22:20 Mucosa - Nose SARS-CoV-2, Influenza & RSV (PCR) - Final SARS-CoV-2 (COVID 19 PCR) ABG Data ABG results: ABG 07/26/24 09:06 Specimen Type ART Sample Site L Radial pH 7.00 L* Bicarbonate Actual 20.1 L Total CO2 23 Base Excess -11 L O2 Saturation 95 O2 % 4.0 ABG pCO2 82.1 H* ABG pO2 119 H O2 Delivery Device Not entered Vent Mode Not entered Crit Call To/Read Back Yes Blood Gas Notified Whom José Miguel Blood Gas Notified Time 09:09:17 Radiography Diagnostic Testing: Radiology Impression Brain CT 07/26/24 00:07 IMPRESSION: Small focal acute subdural versus epidural hematoma in the posterior right temporal lobe. No adjacent edema and no mass effect. Electronically Signed: Kameron FamDO ember at 1:20 EDT , ADDENDUM: 07/26/24 0130 IMPRESSION: Small focal acute subdural versus epidural hematoma in the posterior right temporal lobe. No adjacent edema and no mass effect. N.B. : Alyssia Sheikh RN, confirmed on 07/26/2024 01:24:03 (ET) that the healthcare facility has received the radiology report. Electronically Signed: Kameron Fam DO at 1:20 EDT , Brain CT 07/26/24 06:10 IMPRESSION: Very small focal acute subdural versus epidural hematoma in the posterior right temporal lobe, decreased in size as compared to the prior CT. Electronically Signed: Kameron Fam DO at 7:50 EDT , Chest X-Ray 07/26/24 08:04 IMPRESSION: Normal x-ray examination of the chest. Electronically Signed: Jose Dumas MD at 8:41 EDT , Rhythm Strip Rhythm Strip: Sinus Rhythm Rate: 62 Ectopy: None Physical Exam Const Constitutional Narrative: The patient is now intubated and mechanically ventilated. HEENT normocephalic and head/scalp atraumatic Mouth: endotracheal tube in place Eyes PERRL and conjunctivae normal Neck supple General: trachea midline and CVC in place Chest inspection of chest normal Resp Effort and Inspection: tachypneic Auscultation: rhonchi and diminished lung sounds Cardio S1 normal heart sound and S2 normal heart sound Rate: bradycardia GI normal to inspection, nondistended, normoactive bowel sounds Extremity no clubbing, cyanosis or edema Skin no rashes or lesions noted Neuro Neuro Narrative: Agitated in bed. Moving extremities spontaneously. Sensorium / Orientation: sedated on vent Charges/Coding Procedures Hospitalists Procedures: 43466 Critical Care 1st Hr
[2024-07-26] MEDS: Insulin Lispro 100 UNIT/ML INSULN.PEN SC (11:56)
--- NOTE | 2024-07-26 11:56 | CASEMGMT ---
Insurance review for hospitals in network with MMO Individual HMO if transfer is recommended is as follows: Mich Garcia, [facility], [facility], [place], [facility] ([facility]), and . Kimberlee Alicia, Discharge Planning Asst.
--- NOTE | 2024-07-26 12:02 | NEURO.CONS ---
Assessment and Plan: Neuro Assessment/Plan SANDY ELLIS is a 63 F with a past medical history of COPD, CKD, CAD, HTN, HLD, being evaluated by Teleneurology for confusion and R parietal hemorrhage/hematoma/hyperdense lesion extra-parenchymally on the CT scna. Assessed the scan at 7AM and the hemorrhage area was stable to smaller. This is concerning as it may not actually represent a hemorrhage and I would be worreied right now about a a cortical venous clot. Unfortuantely pt has CKD and at this time CTA and MRI Brain with contrast are not a good choice. Instead will evaluate her Brain with a stat MRI Brain. I evaluated her prior MRIs in the system and this lesion was not present on MRI or CT so this would not be consistent with a meningioma. The greatest concern is that with her declining mental status that she may be having seizures. However her ABG was very acidotic, she's had multiple electrolyte derrangements including severe hypocalcemia, acidosis along with an UMA on CKD so these could explain some of her decline in mental status. At this time, ddx is broad but includes seizure, metabolic derrangment, other lesion in brain. Plan: - given worsening mental status, agree with transfer to a facility with cEEG - recommend stat MRI Brain to evaluate for a venous or other lesion that could be causing symptoms - routine EEG when able - pt is responsive and no clinical signs of seizure so hold on AED until seizure is noted. Transfer to [facility] for the following reasons: [facility] I personally attended this patient and spent a total time of 45 minutes evaluating this patient including clinical assessment, review of chart, medical history imaging, and determining appropriate treatment and workup. HPI Consult Data Date of Consult: 07/26/24 HPI Narrative HPI Narrative: The patient is a 63-year-old female, with a history as outlined below, who presented initially to the emergency department on July 23 with generalized malaise, fatigue and shortness of breath. The patient has a documented history of COPD, chronic hypoxemic respiratory failure with a baseline oxygen requirement of 4 L/min, chronic anemia, diabetes mellitus, chronic kidney disease, coronary artery disease status post PCI, hypertension and hyperlipidemia. The patient is followed in the pulmonary medicine clinic on an outpatient basis and is maintained on a triple therapy inhaler regimen. On presentation to the emergency department, the patient was documented to be afebrile and hemodynamically stable. Initial laboratory evaluation revealed a white blood cell count of 6500 with a hemoglobin of 7.0 g/dL. Platelet count was within normal limits. Chemistry profile was notable for a sodium of 134, potassium of 5.4, BUN of 44 and creatinine of 3.6. BNP was elevated at 2478. Urine analysis was positive for leukocyte esterase and 1+ urine bacteria. COVID PCR was found to be positive. Chest x-ray demonstrated bilateral emphysematous changes with scant interstitial airspace opacities. The patient was initially admitted to the hospital and placed on Decadron, bronchodilators and antimicrobials. Nephrology consultation was obtained. Following her admission to the hospital, the patient has been demonstrating worsening confusion. Head CT was obtained which demonstrated a small focal acute subdural versus epidural hematoma in the posterior right temporal lobe. ABG was obtained which demonstrated a pH of 7.0 with a pCO2 of 82 and pO2 of 119. The patient was subsequently transferred to the medical intensive care unit. Unfortunately, the patient remained anxious and agitated and made frequent attempts to rip off the BiPAP that she was started on. Therefore, following a discussion with the patient's , the decision was made to proceed with intubation. It does appear also that the patient was found to be positive for occult blood in her stool and has been transfused 3 units of packed red blood cells throughout her hospitalization. Neurologic History: Was contacted about patient last night and saw the R small epidural/subdural. Requested case be discussed with neurosurgery at [facility] and they felt there was unlikely surgical intervention necessary. Since CTH was obtained 4 hrs prior and usually we eval a 6 hr stability scan, recommended a 6am CT scan. cT was stable so pt stayed. Pt deteriorated subsequently requiring intubation. When I saw pt, she was already intubated, did not require paralytics. she was on fentanyl and propofol was held. [facility], [facility] Medical History Fissure in skin of foot Adrian's sign present Tobacco abuse CKD (chronic kidney disease) stage 4, GFR 15-29 ml/min Body mass index (BMI) less than 16.5 Underweight Polyneuropathy due to type 1 diabetes mellitus Stage 4 chronic kidney disease due to type 1 diabetes mellitus Respiratory failure with hypoxia Smoking greater than 30 pack years Anemia Diabetic nephropathy, type I Hyperkalemia Renal insufficiency Diabetes Chronic obstructive pulmonary disease Essential (primary) hypertension Hypersomnia Anxiety Depression Atherosclerosis of coronary artery of [place] heart without angina pectoris NSTEMI (non-ST elevated myocardial infarction) (01/12/18) DM type 1 (diabetes mellitus, type 1) Hyperlipidemia COPD (chronic obstructive pulmonary disease) Home Medications ?Medication ?Instructions ?Recorded ?Last Taken ?Type simvastatin 40 mg tablet 40 mg PO QHS cholesterol 06/21/18 07/23/24 20:00 History albuterol sulfate 2.5 mg/3 mL 2.5 mg (3 mL) inhalation Q2H PRN 06/23/18 Unknown Rx (0.083 %) solution for nebulization PRN dyspnea, wheezing ##1 aspirin 81 mg tablet,delayed 81 mg PO DAILY heart health 12/31/19 07/23/24 20:00 History release pen needle, diabetic 32 gauge x ##1 08/29/20 Unknown Rx flash glucose scanning reader #1 ea 11/20/20 Unknown Rx (FreeStyle Eileen 2 [place]) gabapentin 800 mg tablet 800 mg PO QHS neuropathy 02/17/23 07/23/24 20:00 History blood sugar diagnostic (FreeStyle #25 ea 08/26/23 Unknown Rx Precision Jeff Strips) FreeStyle Eileen 2 Sensor (flash #6 ea 08/27/23 Unknown Rx glucose sensor) nitroglycerin 0.4 mg sublingual 0.4 mg sublingual Q5-15M PRN chest 10/19/23 Unknown Rx tablet pain #25 tabs oxygen NASAL 12/03/23 Unknown History ipratropium 0.5 mg-albuterol 3 mg 3 ml inhalation Q4H PRN PRN SOB 12/29/23 Unknown Rx (2.5 mg base)/3 mL nebulization &/OR WHEEZING #180 mL soln buspirone 7.5 mg tablet 7.5 mg PO BID 30 days #60 tabs 04/15/24 07/23/24 20:00 Rx albuterol sulfate 90 mcg/actuation 2 puff inhalation Q6H PRN PRN 05/05/24 Unknown Rx aerosol inhaler Cough #8.5 grams blood-glucose sensor (Dexcom G6 #3 ea 05/12/24 Unknown Rx Sensor device) blood-glucose transmitter (Dexcom #1 ea 05/12/24 Unknown Rx G6 Transmitter device) metoprolol tartrate 50 mg tablet 50 mg PO BID #180 tabs 05/12/24 07/23/24 20:00 Rx insulin lispro 100 unit/mL 60 unit (0.6 mL) continuous 05/28/24 Unknown Rx subcutaneous solution (Humalog subcutaneous infusion .continuous U-100 Insulin) #54 mL insulin pump cart,automated,BT #10 ea 05/31/24 Unknown Rx (Omnipod 5 G6 Pods (Gen 5) subcutaneous cartridge) denosumab 60 mg/mL subcutaneous 60 mg subcut [id number] #1 mL 06/10/24 07/28/23 19:15 Rx syringe (Prolia) budesonide 160 mcg-glycopyr 9 2 inh inhalation BID #10.7 grams 07/20/24 Unknown Rx mcg-formot 4.8 mcg/actuation HFA inhaler (Breztri Aerosphere) clopidogrel 75 mg tablet 75 mg PO DAILY #90 tabs 07/26/24 Unknown Rx Allergy/AdvReac Type Severity Reaction Status Date / Time No Known Allergies Allergy Verified 07/23/24 21:27 Family History Mother Heart disease COPD (chronic obstructive pulmonary disease) Lupus Daughter Growth disorder Down syndrome Fibromyalgia Grandfather Colon cancer Diabetes Grandmother Heart disease CVA (cerebral vascular accident) Diabetes Pulmonary disease Sister Hypertension Kidney disease Surgical History H/O: Hx of appendectomy H/O: hysterectomy History of coronary artery stent placement (02/04/18) Social History (Updated 07/24/24 @ 00:[address] Lani Samaniego MD) housing: house pets and animals: Yes pets and animals: cat(s) Smoking Status: Light Smoker (<10/day) how long ago did patient quit smoking: Since 05/2024 cut back and has only had ~ 10 cigarettes since then. quit status: considering quitting alcohol intake: never substance use type: does not use caffeine: Yes Type: carbonated beverages Number of servings: 4 what type of physical activity do you participate in: none seatbelt use: always do you feel safe at home: Yes Vital Signs Vital Signs Vital Signs: 07/25/24 14:00 07/25/24 14:59 07/25/24 16:40 Temperature 97.0 F L Temperature Source Oral Pulse Rate 58 L Respiratory Rate 18 Respiratory Effort Normal Non-Labored Respiratory Depth Normal Respiratory Pattern Normal Blood Pressure 126/76 H Blood Pressure Mean 92 Blood Pressure Source Monitor Blood Pressure Position Semi-Fowlers Blood Pressure Location Right Arm Pulse Ox 99 Oxygen Delivery Method Nasal Cannula Nasal Cannula Oxygen Flow Rate (L/min) 2 2 2 Fraction of Inspired Oxygen (FIO2) 07/25/24 22:00 07/25/24 22:11 07/25/24 23:30 Temperature Temperature Source Pulse Rate 108 H 58 L Respiratory Rate Respiratory Effort Normal Non-Labored Respiratory Depth Normal Respiratory Pattern Normal Blood Pressure 133/61 H Blood Pressure Mean 85 Blood Pressure Source Blood Pressure Position Blood Pressure Location Pulse Ox 100 Oxygen Delivery Method Nasal Cannula Nasal Cannula Oxygen Flow Rate (L/min) 2 Fraction of Inspired Oxygen (FIO2) 07/26/24 02:00 07/26/24 02:10 07/26/24 02:30 Temperature 95.5 F L Temperature Source Temporal Pulse Rate 98 93 Respiratory Rate 14 14 Respiratory Effort Respiratory Depth Respiratory Pattern Blood Pressure 88/39 L 73/45 L Blood Pressure Mean 55 54 Blood Pressure Source Monitor Monitor Blood Pressure Position Supine Supine Blood Pressure Location Left Arm Left Arm Pulse Ox 100 100 Oxygen Delivery Method Nasal Cannula Nasal Cannula Nasal Cannula Oxygen Flow Rate (L/min) 2 2 Fraction of Inspired Oxygen (FIO2) 07/26/24 03:00 07/26/24 03:00 07/26/24 03:30 Temperature 96.8 F L Temperature Source Temporal Pulse Rate 639 H 92 94 Respiratory Rate 14 14 14 Respiratory Effort Respiratory Depth Respiratory Pattern Blood Pressure 115/56 L 115/56 L 109/46 L Blood Pressure Mean 75 75 67 Blood Pressure Source Monitor Monitor Blood Pressure Position Supine Supine Blood Pressure Location Left Arm Left Arm Pulse Ox 100 100 100 Oxygen Delivery Method Nasal Cannula Nasal Cannula Nasal Cannula Oxygen Flow Rate (L/min) 2 2 2 Fraction of Inspired Oxygen (FIO2) 07/26/24 04:00 07/26/24 04:30 07/26/24 04:36 Temperature 95.7 F L Temperature Source Temporal Pulse Rate 93 92 91 Respiratory Rate 14 14 13 Respiratory Effort Respiratory Depth Respiratory Pattern Blood Pressure 99/40 L 91/39 L 91/39 L Blood Pressure Mean 59 56 56 Blood Pressure Source Monitor Monitor Monitor Blood Pressure Position Supine Supine Blood Pressure Location Left Arm Left Arm Pulse Ox 100 100 100 Oxygen Delivery Method Nasal Cannula Nasal Cannula Nasal Cannula Oxygen Flow Rate (L/min) 2 2 2 Fraction of Inspired Oxygen (FIO2) 07/26/24 04:51 07/26/24 05:00 07/26/24 05:30 Temperature 91.3 F L 91.4 F L Temperature Source Rectal Rectal Pulse Rate 92 90 92 Respiratory Rate 14 14 16 Respiratory Effort Respiratory Depth Respiratory Pattern Blood Pressure 89/38 L 91/41 L 102/43 L Blood Pressure Mean 55 57 62 Blood Pressure Source Monitor Monitor Monitor Blood Pressure Position Supine Supine Supine Blood Pressure Location Right Arm Left Arm Left Arm Pulse Ox 100 96 99 Oxygen Delivery Method Nasal Cannula Nasal Cannula Nasal Cannula Oxygen Flow Rate (L/min) 2 2 2 Fraction of Inspired Oxygen (FIO2) 07/26/24 06:00 07/26/24 06:00 07/26/24 06:15 Temperature 91.6 F L 91.3 F L Temperature Source Rectal Rectal Pulse Rate 95 61 Respiratory Rate 16 16 Respiratory Effort Respiratory Depth Respiratory Pattern Blood Pressure 111/46 L 106/69 Blood Pressure Mean 67 81 Blood Pressure Source Monitor Monitor Blood Pressure Position Supine Supine Blood Pressure Location Left Arm Left Arm Pulse Ox 93 100 Oxygen Delivery Method Nasal Cannula Nasal Cannula Nasal Cannula Oxygen Flow Rate (L/min) 2 2 Fraction of Inspired Oxygen (FIO2) 07/26/24 06:30 07/26/24 06:54 07/26/24 07:00 Temperature Temperature Source Pulse Rate 72 55 L 98 Respiratory Rate 20 H 16 Respiratory Effort Respiratory Depth Respiratory Pattern Blood Pressure 87/40 L 103/43 L Blood Pressure Mean 55 63 Blood Pressure Source Monitor Monitor Blood Pressure Position Supine Supine Blood Pressure Location Left Arm Left Arm Pulse Ox 90 90 Oxygen Delivery Method Room Air Room Air Oxygen Flow Rate (L/min) Fraction of Inspired Oxygen (FIO2) 07/26/24 08:02 07/26/24 09:00 07/26/24 09:00 Temperature 96.6 F L 96.5 F L 96.6 F L Temperature Source Temporal Temporal Temporal Pulse Rate 55 L 59 L 60 Respiratory Rate 26 H 27 H 20 H Respiratory Effort Respiratory Depth Respiratory Pattern Blood Pressure 96/62 112/50 L 108/56 L Blood Pressure Mean 73 70 73 Blood Pressure Source Monitor Monitor Blood Pressure Position Semi-Fowlers Semi-Fowlers Blood Pressure Location Left Arm Right Arm Pulse Ox 93 100 95 Oxygen Delivery Method Nasal Cannula Nasal Cannula Nasal Cannula Oxygen Flow Rate (L/min) 3 4 4 Fraction of Inspired Oxygen (FIO2) 07/26/24 09:31 07/26/24 09:57 07/26/24 10:00 Temperature Temperature Source Pulse Rate 57 L 56 L Respiratory Rate 19 H 20 H Respiratory Effort Short of Breath Respiratory Depth Normal Respiratory Pattern Tachypnea Blood Pressure 93/45 L Blood Pressure Mean 61 Blood Pressure Source Monitor Blood Pressure Position Semi-Fowlers Blood Pressure Location Right Arm Pulse Ox 100 100 Oxygen Delivery Method Nasal Cannula Bi-pap Oxygen Flow Rate (L/min) 4 Fraction of Inspired Oxygen (FIO2) 40 35 07/26/24 11:25 07/26/24 11:45 07/26/24 12:00 Temperature Temperature Source Pulse Rate 58 L 57 L 57 L Respiratory Rate 16 16 16 Respiratory Effort Respiratory Depth Respiratory Pattern Normal Blood Pressure 74/40 L 82/33 L Blood Pressure Mean 51 49 Blood Pressure Source Monitor Monitor Blood Pressure Position Semi-Fowlers Semi-Fowlers Blood Pressure Location Right Arm Right Arm Pulse Ox 100 100 98 Oxygen Delivery Method Mechanical Ventilator Mechanical Ventilator Oxygen Flow Rate (L/min) Fraction of Inspired Oxygen (FIO2) 50 50 50 Weight Weight: 48.2 kg Body Mass Index (BMI) 17.1 NIHSS NIHSS Nursing Documentation NIHSS Nursing Documentation: NIHSS: Hemorrhagic Stroke Start: 07/26/24 01:49 Text: FOR ICU PATIENTS: Status: Active *Also complete NIH w/any change in pt condition or change in caregiver Protocol: Activity Type Activity Date Activity User E-sign Co-sign Detail Recorded Client Recorded Date Recorded By Document 07/26/24 08:49 [facility] [id number] 07/26/24 09:30 [facility] 07/26/24 08:49 NIH Stroke Scale [NIHSS] A score of 0 is normal or asymptomatic . Total possible score is 42. Inpatient: RN or Physician to activate a stroke alert for onset of new stroke symptoms or with NIHSS increase >/= 3 points. Following change in neurological status, NIHSS will be performed per physician order or more frequently PRN. -1a. Level of Consciousness Not alert; Arouse to repeat stimuli or strong/pain stimuli if obtunded -1b. LOC Questions Answers neither question correctly. -1c. LOC Commands Performs neither task correctly. -2. Best Gaze Normal -4. Facial Palsy Normal symmetrical movements -5a. Left Arm No movement -5b. Right Arm No movement -6a. Left Leg No movement -6b. Right Leg No movement -7. Limb Ataxia Absent -10. Dysarthria Severe dysarthria; -'UN' explanation unresponsive -Total 24 Query Text:A score of 0 is normal or asymptomatic. Total possible score is 42 . ED: Notify Physician for NIHSS increase by > / = 3 points. Inpatient: RN or Physician to activate a stroke alert for NIHSS increase of > / = 3 points. Physical Exam Narrative Pt was on fentanyl ggt on examination and propofol ggt had just been stopped pupils 2mmg and sluggish Dolls eye intact, no roving eye movements cough intact corneals not tested Pt was responsive to noxious stim with grimace She moved arms b/l in plane of bed legs were moving purposefully in bed and were antigravity Lab / Micro Data 07/26/24 02:33 07/26/24 02:33 Labs: Laboratory Results - last 24 hr 07/23/24 23:47: Crossmatch See Detail 07/25/24 16:21: POC Glucose 249 H 07/25/24 22:15: POC Glucose 193 H 07/25/24 22:43: Hgb 8.7 L, Hct 28.5 L 07/26/24 02:33: WBC 8.3, RBC 2.39 L, Hgb 6.9 L, Hct 22.7 L, MCV 95.0, MCH 28.9, MCHC 30.4 L, RDW Std Deviation 52.6 H, RDW Coeff of Iron 15.0 H, Plt Count 164, MPV 10.8, Sodium 131 L, Potassium 5.6 H, Chloride 100, Carbon Dioxide 20.0 L, BUN 59 H, Creatinine 3.84 H, Estim Creat Clear Calc 11.26, Est GFR (MDRD) Af Amer 15 L, Est GFR (MDRD) Non-Af 13 L, BUN/Creatinine Ratio 15.4, Glucose 167 H, Calcium 5.5 L*, Phosphorus 7.0 H, Albumin 2.4 L 07/26/24 04:37: PT 15.7 H, INR 1.3, APTT 33.7 ABG Data ABG results: ABG 07/26/24 09:06 Specimen Type ART Sample Site L Radial pH 7.00 L* Bicarbonate Actual 20.1 L Total CO2 23 Base Excess -11 L O2 Saturation 95 O2 % 4.0 ABG pCO2 82.1 H* ABG pO2 119 H O2 Delivery Device Not entered Vent Mode Not entered Crit Call To/Read Back Yes Blood Gas Notified Whom José Miguel Blood Gas Notified Time 09:09:17 Rhythm Strip Rhythm Strip: Sinus Rhythm Rate: 62 Ectopy: None Imaging Radiology Impression Brain CT 07/26/24 00:07 IMPRESSION: Small focal acute subdural versus epidural hematoma in the posterior right temporal lobe. No adjacent edema and no mass effect. Electronically Signed: Kameron Fam DO at 1:20 EDT , ADDENDUM: 07/26/24 0130 IMPRESSION: Small focal acute subdural versus epidural hematoma in the posterior right temporal lobe. No adjacent edema and no mass effect. N.B. : Alyssia Sheikh RN, confirmed on 07/26/2024 01:24:03 (ET) that the healthcare facility has received the radiology report. Electronically Signed: Kameron Fam DO at 1:20 EDT , Brain CT 07/26/24 06:10 IMPRESSION: Very small focal acute subdural versus epidural hematoma in the posterior right temporal lobe, decreased in size as compared to the prior CT. Electronically Signed: Kameron Fam DO at 7:50 EDT , Chest X-Ray 07/26/24 08:04 IMPRESSION: Normal x-ray examination of the chest. Electronically Signed: Jose Dumas MD at 8:41 EDT , Active Medications Active Medications Active Medications: Current Medications Generic Name Dose Route Start Last Admin Trade Name Freq PRN Reason Stop Dose Admin Acetaminophen 650 mg 07/24/24 00:57 Acetaminophen 325 Mg Tablet PO Q4H PRN PRN Fever, pain 1-10/10 Al Hydrox/Mg Hydrox/Simethicone 30 ml 07/24/24 00:57 Mag /Aluminum/Simeth Wch Udc 30 Ml Oral.Susp PO Q6H PRN PRN Gastric Burning Albuterol Sulfate 2.5 mg 07/24/24 00:57 Albuterol 2.5 Mg/3 Ml Vial.Neb. INHALATION Q2H PRN PRN Dyspnea, wheezing Atorvastatin Calcium 20 mg 07/24/24 22:00 07/25/24 22:08 Atorvastatin Calcium 20 Mg Tablet PO 20 mg QHS LANCE Administration Budesonide 0.5 mg 07/24/24 00:57 07/24/24 20:08 Budesonide Respules 0.5 Mg/2 Ml Ampul.Neb. INHALATION 0.5 mg BID.RT LANCE Administration Buspirone HCl 7.5 mg 07/24/24 10:00 07/25/24 22:11 Buspirone 15 Mg Tablet PO 7.5 mg BID LANCE Administration Ergocalciferol 1.25 mg 07/25/24 10:00 07/25/24 09:00 Ergocalciferol 1.25 Mg (50, 000 Unit) Capsule PO 1.25 mg Q7D LANCE Administration Glucagon 1 mg 07/24/24 00:57 Glucagon 1 Mg/Ml Syringe IM X1 PRN HYPOGLYCEMIA Protocol Hydralazine HCl 10 - 20 mg 07/26/24 01:49 Hydralazine 20 Mg/Ml Vial IV Q10M PRN to maintain SBP < 140mmHg Dextrose 250 mls @ 0 mls/hr 07/24/24 00:57 Dextrose 10%-Water IV .Q0M PRN HYPOGLYCEMIA Protocol As Directed Sodium Chloride 250 mls @ 15 mls/hr 07/24/24 01:23 07/26/24 04:43 IV 15 mls/hr .[id number] PRN Administration Additional IVPB Infusion Sodium Chloride 250 mls @ 15 mls/hr 07/24/24 01:23 IV .[id number] PRN Saline Flush Pantoprazole Sodium 40 mg/ 110 mls @ 330 mls/hr 07/24/24 20:30 07/26/24 09:13 Sodium Chloride IV Infused Q12 LANCE Infusion Sodium Bicarbonate 150 meq/ 1,150 mls @ 60 mls/hr 07/26/24 08:50 07/26/24 10:17 Dextrose IV 60 mls/hr .[id number] LANCE Administration Fentanyl 100 mls @ 5 mls/hr 07/26/24 10:45 07/26/24 12:00 CONT INF 75 mcg/hr UD LANCE 7.5 mls/hr Titration Protocol 50 MCG/HR Norepinephrine Bitartrate 8 mg 250 mls @ 9.375 mls/hr 07/26/24 11:05 07/26/24 12:00 / Sodium Chloride CONT INF 10 mcg/min .[id number] LANCE 18.8 mls/hr Titration Protocol 5 MCG/MIN Propofol 1,000 mg in 100 mls @ 2.892 mls/hr 07/26/24 11:35 07/26/24 12:00 Diprivan CONT INF 10 mcg/kg/min .Q12H LANCE 2.9 mls/hr Titration Protocol 10 MCG/KG/MIN Piperacillin Sod/Tazobactam 50 mls @ 12.5 mls/hr 07/26/24 14:00 Sod 3.375 gm/ Sodium Chloride IV Q12 LANCE Vancomycin IV-PHARMACY TO DOSE 500 mls @ 250 mls/hr 07/26/24 11:57 1 each/ Sodium Chloride IV X1 PRN Rx to Dose Protocol Vancomycin HCl 1,250 mg/ 275 mls @ 167 mls/hr 07/26/24 12:30 Sodium Chloride IV 07/26/24 14:08 X1 ONE Insulin Human Lispro 0 unit 07/24/24 07:00 07/26/24 11:56 Insulin Lispro 100 Unit/Ml Insuln.Pen SC 6 u ACHS LANCE Administration Protocol Labetalol HCl 20 mg 07/26/24 01:49 Labetalol 100 Mg/20 Ml Vial IV Q10M PRN maintain SBP < 140mmhg Metoprolol Tartrate 50 mg 07/24/24 10:00 07/25/24 22:11 Metoprolol Tartrate 50 Mg Tablet PO 50 mg BID LANCE Administration Protocol Ondansetron HCl 4 mg 07/24/24 00:57 Ondansetron 4 Mg/2 Ml Vial IV Q8H PRN PRN NAUSEA/VOMITING Prochlorperazine Edisylate 5 mg 07/24/24 00:57 Prochlorperazine 10 Mg/2 Ml Vial IV Q4H PRN PRN Breakthrough Nausea/Vomiting Sodium Chloride 10 - 40 ml 07/24/24 01:23 07/26/24 04:43 0.9% Saline Lock 10 Ml Syringe IV 40 ml UD PRN Administration SALINE FLUSH
--- NOTE | 2024-07-26 12:03 | RAD_ITS ---
STUDY: X-RAY - ABDOMEN/PELVIS REASON FOR EXAM: Female, 63 years old. tube placement- OG TECHNIQUE: Single AP view of the abdomen / pelvis. COMPARISON: None. FINDINGS: Nasogastric tube with the tip in the left upper quadrant likely in the body of the stomach. There is an unremarkable bowel gas pattern. The visualized liver, spleen and kidneys are grossly normal in size and morphology. Normal soft tissue structures. Normal visualized osseous structures. RAD/Abdomen Single View (Portable) IMPRESSION: Nasogastric tube with the tip in the left upper quadrant, likely in the body of the stomach. No bowel obstruction Electronically Signed: Jose Dumas MD at 12:34 EDT ,
[2024-07-26 12:39] LABS: Base Excess -15 mmol/L (-2 to +2); Bicarbonate 16.3 mmol/L (22-26); Blood Gas Specimen Type ART; Mode AC; O2 Delivery Device Not entered; PEEP 5; PO2 127 mmHG (75-100); RR 16; SITE R Brach; SO2 96 % (95-99); Total Carbon Dioxide 18 mmol/L; pCO2 64.6 mmHg (35-45); pH 7.01 (7.35-7.45)
[2024-07-26] MEDS: Vancomycin HCl 1,250 MG in 0.9% Normal Saline (250mL Bag) 250 ML 167 MG IV (12:40)
--- NOTE | 2024-07-26 13:02 | PCM.RX.CS ---
Consult Antibiotic Management Pharmacy has been consulted to manage selected antibiotic: Vancomycin Type of Intervention Type of Consult: New start Suspected Infection Suspected Infection: Pneumonia and Other (EMPIRIC) Prior Doses of Antibiotics Prior Doses of Antibiotics Received/Current Regimen: Vancomycin initial dose = 1250 mg IV x 1 given 07/26/24 @ 1240 Labs Labs: Sodium 131 mmol/L (136-145) L 07/26/24 02:33 Potassium 5.6 mmol/L (3.5-5.1) H 07/26/24 02:33 Chloride 100 mmol/L (98-107) 07/26/24 02:33 Carbon Dioxide 20.0 mmol/L (21.0-32.0) L 07/26/24 02:33 Anion Gap 10 (5-15) 07/25/24 05:35 BUN 59 mg/dL (7-18) H 07/26/24 02:33 Creatinine 3.84 mg/dL (0.55-1.02) H 07/26/24 02:33 Est GFR (MDRD) Af Amer 15 mL/min (>60) L 07/26/24 02:33 Est GFR (MDRD) Non-Af 13 mL/min (>60) L 07/26/24 02:33 BUN/Creatinine Ratio 15.4 RATIO (10-20) 07/26/24 02:33 Glucose 167 mg/dL (74-106) H 07/26/24 02:33 Microbiology Microbiology: Microbiology 07/24/24 16:34 Stool Stool Occult Blood (DANYELL) - Final Occult Blood Positive 07/23/24 22:20 Mucosa - Nose SARS-CoV-2, Influenza & RSV (PCR) - Final SARS-CoV-2 (COVID 19 PCR) Dosing Weight Weight used for dosin.2 kg Estimated Creatinine Clearance Estimated Creatinine Clearance: ~11 Goal Trough Goal Trough: 15-20 mcg/mL Pharmacy Plan for Drug Dosing Pharmacy Plan for Drug Dosing: Vancomycin 1250 mg IV x 1, subsequent dosing based on random level on 07/28/24. Pharmacy Service will continue to monitor and adjust dosing as required. Follow-Up Labs Follow-Up Labs: Trough: Vancomycin Date/Time Labs Ordered Labs to be done on [date and time ordered]: 07/28/24 @ 0600
[2024-07-26 13:17] LABS: CPK Total, Creatine Kinase 1209 U/L (26-192); Triglycerides 103 mg/dL
--- NOTE | 2024-07-26 13:46 | NURSING ---
Unable to complete full NIH. Pt intubated and sedated
--- NOTE | 2024-07-26 15:14 | CHAPLAIN ---
Type of Pastoral Visit _x__ Initial Visit ___ Follow-up Visit ___ On-call Visit ___ General Patient Visit ___ Spiritual Assessment ___ Family Conference ___ Bereavement ___ Rapid Response ___ Code Blue ___ Other (describe below) Pastoral Care Referral From ___ Patient ___ Family _x__ Nurse ___ Physician ___ Rubber Chemist ___ Deputy Sheriff K9 Handler ___ Other (describe below) Sacrament/Intervention ___ Active listening ___ Anointing ___ Tenriism ___ Bereavement ___ Communion ___ Nora exploration ___ ___ Life review ___ Prayer ___ Reconciliation ___ Sacrament of Sick _x__ Supportive presence ___ Wedding ___ Other (describe below) Pastoral Comments patient was being attended to by staff; spouse is in the waiting room; RN requests this campus receptionist to check on the spouse as I think he is having a hard time; met with spouse in the waiting room and introduced self and role; offered support and listening ear; spouse states I don't want to talk when I'm feeling this way; offer of presence or trying to meet some need that spouse has and he declined; spouse says that a SHIRLENE is coming to sit with him soon
--- NOTE | 2024-07-26 15:57 | PCM.DC.SUM ---
Providers Date of Admission: 07/23/24 Primary Care Physician: Dr. Bird Lujan MD Consultations 07/24/24 07:00 Consult: Nephrology Routine Consulting Provider: Marshal Jacobo Reason for Consult: UMA on CKD EMERGENT Consult: No Notified: Yes Date Notified: 07/24/24 Time Notified: 06:43 Method of Notification: Answering Service 07/24/24 20:23 Consult: Gastroenterology Routine Consulting Provider: [facility] Reason for Consult: GI bleed, ABLA EMERGENT Consult: No MD Notified: Yes Date Notified: 07/24/24 Time Notified: 20:24 Method of Notification: Text 07/26/24 01:29 Teleneurology [Consult: Tele-Neurology] Routine Consulting Provider: [facility] Reason for Consult: small focal acute subdural versus epidural hematoma EMERGENT Consult: Yes MD Notified: Yes Date Notified: 07/26/24 Time Notified: 01:29 Method of Notification: Answering Service Method of Consult:: Telemedicine Nursing Unit Staff Notify [facility] of Tele-Neurology Consult: Yes 07/26/24 05:48 Consult: Dance Artist / Pulmonary Medicine Routine Consulting Provider: Intensivists/Pulmonary Med Reason for Consult: Focal small ICH, pending repeat CT head, possible Txf [facility] EMERGENT Consult: No Notified: Yes Date Notified: 07/26/24 Time Notified: 05:48 Method of Notification: Text 07/26/24 12:10 Consult: Nephrology Routine Consulting Provider: Christy Huerta Reason for Consult: UMA on CKD EMERGENT Consult: No Notified: Yes Date Notified: 07/26/24 Time Notified: 12:10 Method of Notification: Verbal Reason For Visit: COVID, COPD EXAC, UMA ON CKD, HYPOCALCEMIA, ACUTE Diagnosis Discharge Diagnosis (1) COVID: Status: Acute Code(s): U07.1 - COVID-19 Medications at Discharge Home Medications simvastatin 40 mg tablet 40 mg PO QHS cholesterol 06/21/18 albuterol sulfate 2.5 mg/3 mL (0.083 %) solution for nebulization 2.5 mg (3 mL) inhalation Q2H PRN PRN dyspnea, wheezing ##1 06/23/18 aspirin 81 mg tablet,delayed release 81 mg PO DAILY heart [facility] 12/31/19 pen needle, diabetic 32 gauge x 32 ##1 08/29/20 flash glucose scanning reader (FreeStyle Eileen 2 Laura) #1 ea 11/20/20 gabapentin 800 mg tablet 800 mg PO QHS neuropathy 02/17/23 blood sugar diagnostic (FreeStyle Precision Jeff Strips) #25 ea 08/26/23 FreeStyle Eileen 2 Sensor (flash glucose sensor) #6 ea 08/27/23 nitroglycerin 0.4 mg sublingual tablet 0.4 mg sublingual Q5-15M PRN chest pain #25 tabs 10/19/23 oxygen NASAL 12/03/23 ipratropium 0.5 mg-albuterol 3 mg (2.5 mg base)/3 mL nebulization soln 3 ml inhalation Q4H PRN PRN SOB &/OR WHEEZING #180 mL 12/29/23 buspirone 7.5 mg tablet 7.5 mg PO BID 30 days #60 tabs 04/15/24 albuterol sulfate 90 mcg/actuation aerosol inhaler 2 puff inhalation Q6H PRN PRN Cough #8.5 grams 05/05/24 blood-glucose sensor (DexNodePrime G6 Sensor device) #3 ea 05/12/24 blood-glucose transmitter (Dexcom G6 Transmitter device) #1 ea 05/12/24 metoprolol tartrate 50 mg tablet 50 mg PO BID #180 tabs 05/12/24 insulin lispro 100 unit/mL subcutaneous solution (Humalog U-100 Insulin) 60 unit (0.6 mL) continuous subcutaneous infusion .continuous #54 mL 05/28/24 insulin pump cart,automated,BT (Omnipod 5 G6 Pods (Gen 5) subcutaneous cartridge) #10 ea 05/31/24 denosumab 60 mg/mL subcutaneous syringe (Prolia) 60 mg subcut [id number] #1 mL 06/10/24 budesonide 160 mcg-glycopyr 9 mcg-formot 4.8 mcg/actuation HFA inhaler (Breztri Aerosphere) 2 inh inhalation BID #10.7 grams 07/20/24 clopidogrel 75 mg tablet 75 mg PO DAILY #90 tabs 07/26/24 Hospital Course Operations None Procedures Central line placement and Intubation Summary of Care Provided Minutes Spent on Discharge: 60 Hospital Course: Patient presented on the with shortness of breath. She is felt to be acute exacerbation of COPD along with acute kidney injury and hypocalcemia, hyponatremia, hyperkalemia. Patient received IV fluids. Patient had ongoing issues with confusion. Earlier this morning, she had a CAT scan of her head that showed a right-sided parietal subdural versus epidural hematoma. [facility] neurology and neurosurgery were contacted and the patient was agreed to be transferred to [facility] for further management. Before she can be transferred, her situation devolved. Her ABG came back showing a pH of 7 and pCO2 of 82. Patient was attempted on BiPAP but did not tolerate due to her confusion and was subsequently intubated and had a central line placed. [facility] called back to say that patient was at a network and would not be accepting her transfer. Was given a list of excepting facilities and reached out to . I spoke with the trauma surgeon there who agreed to take the patient. Earlier, I spoke with the patient's the patient has apparently had falls where she smacked her head either on the floor on objects that may have been the source of this hematoma. Patient was transferred in critical condition Weight / BMI Weight Weight: 48.2 kg Body Mass Index (BMI) 17.1 ABG / Lab / Microbiology Data 07/26/24 02:33 07/26/24 02:33 Laboratory: Laboratory Results - last 24 hr 07/23/24 23:47: Crossmatch See Detail 07/25/24 16:21: POC Glucose 249 H 07/25/24 22:15: POC Glucose 193 H 07/25/24 22:43: Hgb 8.7 L, Hct 28.5 L 07/26/24 02:33: WBC 8.3, RBC 2.39 L, Hgb 6.9 L, Hct 22.7 L, MCV 95.0, MCH 28.9, MCHC 30.4 L, RDW Std Deviation 52.6 H, RDW Coeff of Iron 15.0 H, Plt Count 164, MPV 10.8, Sodium 131 L, Potassium 5.6 H, Chloride 100, Carbon Dioxide 20.0 L, BUN 59 H, Creatinine 3.84 H, Estim Creat Clear Calc 11.26, Est GFR (MDRD) Af Amer 15 L, Est GFR (MDRD) Non-Af 13 L, BUN/Creatinine Ratio 15.4, Glucose 167 H, Calcium 5.5 L*, Phosphorus 7.0 H, Total Creatine Kinase 1209 H, Albumin 2.4 L, Triglycerides 103 07/26/24 04:37: PT 15.7 H, INR 1.3, APTT 33.7 Microbiology: Microbiology 07/24/24 16:34 Stool Stool Occult Blood (DANYELL) - Final Occult Blood Positive 07/23/24 22:20 Mucosa - Nose SARS-CoV-2, Influenza & RSV (PCR) - Final SARS-CoV-2 (COVID 19 PCR) ABG: ABG 07/26/24 07/26/24 09:06 12:35 Specimen Type ART ART Sample Site L Radial R Brach pH 7.00 L* 7.01 L* Bicarbonate Actual 20.1 L 16.3 L Total CO2 23 18 Base Excess -11 L -15 L O2 Saturation 95 96 O2 % 4.0 50.0 ABG pCO2 82.1 H* 64.6 H ABG pO2 119 H 127 H Respiration Rate 16 O2 Delivery Device Not entered Not entered Vent Mode Not entered AC Tidal Volume 400.0 POC PEEP 5 Crit Call To/Read Back Yes Yes Blood Gas Notified Whom José Miguel alva Blood Gas Notified Time 09:09:17 12:36:55 Radiography Diagnostic Testing: Radiology Impression Brain CT 07/26/24 00:07 IMPRESSION: Small focal acute subdural versus epidural hematoma in the posterior right temporal lobe. No adjacent edema and no mass effect. Electronically Signed: Kameron Fam DO at 1:20 EDT Reading Location ID and State: [facility] / [place] Tel , Service support , ADDENDUM: 07/26/24 0130 IMPRESSION: Small focal acute subdural versus epidural hematoma in the posterior right temporal lobe. No adjacent edema and no mass effect. N.B. : Alyssia Sheikh RN, confirmed on 07/26/2024 01:24:03 (ET) that the healthcare facility has received the radiology report. Electronically Signed: Kameron Fam DO at 1:20 EDT , Brain CT 07/26/24 06:10 IMPRESSION: Very small focal acute subdural versus epidural hematoma in the posterior right temporal lobe, decreased in size as compared to the prior CT. Electronically Signed: Kameron Fam DO at 7:50 EDT , Chest X-Ray 07/26/24 08:04 IMPRESSION: Normal x-ray examination of the chest. Electronically Signed: Jose Dumas MD at 8:41 EDT , Chest X-Ray 07/26/24 11:45 IMPRESSION: Interval placement of endotracheal tube with the tip above the heather. Interval placement of right internal jugular central line with tip catheter overlying the superior vena cava with no pneumothorax. No active pulmonary disease. Electronically Signed: Jose Dumas MD at 12:10 EDT , KUB X-Ray 07/26/24 12:03 IMPRESSION: Nasogastric tube with the tip in the left upper quadrant, likely in the body of the stomach. No bowel obstruction Electronically Signed: Jose Dumas MD at 12:34 EDT , Meaningful Use Info Meaningful Use Meaningful Use Diagnoses (Choose all that apply): None applicable Ischemic Stroke Statin Dosing Therapy Reference: STATIN DOSE THERAPY REFERENCE: * Patients > 75 years receive moderate or high dose statin therapy. * Patients 75 years or YOUNGER should receive HIGH intensity statin dose unless contraindicated. You will be required to document reason for non-treatment if statin daily dose does not meet guidelines. HIGH DOSE STATIN THERAPY DAILY Atorvastatin > than or = to 40 mg Rosuvastatin > than or = to 20 mg Amlodipine + Atorvastatin > than or = to 2.5/40 mg Ezetimibe + Simvastatin 10/80 mg Simvastatin 80mg Discharge Plan Admission Admit Date/Time: 07/23/24 23:46 Primary Reason for Your Visit: Respiratory failure. UMA. Attending Provider: Favian Nicholas Primary Care Provider: Bird Lujan Consulting Providers: Lani Samaniego; Marshal Jacobo; Leon Cao; Mario Parry; Janet Wallis; Kayleigh Concepcion; Liliana Tadeo; Eduardo Simpson; Stephanie Torres; James Mendiola; Kalia Cohen; Jose Alejandro Chow; Kiersten Sherwood; Yon Peña; Roxanne Mariscal; Compa Robles; Cris Finch; Lyle Toney; Frederick Padilla; Lopez Renae; iLya Huerta; Eve Adhikari; Baldo Tripp; Eladio Valdez; Casey Lizarraga; Terrance Alva; Jimmy Almeida; Jose Kaye; Estrada Kathleen; Bertha Aguilar; Gennaro Wilhelm; Trino Marcano; Chichi Lloyd; Julio Ventura; Ritesh Zayas; Kian Sinclair; Felipe Green; Fernanda Deleon; Allan Nuñez; Ihsan Hines; Christy Huerta Discharge Orders/Prescriptions Prescriptions: No Action aspirin 81 mg tablet,delayed release (DR/EC) 81 mg PO DAILY (DME) FreeStyle Eileen 2 Laura [facility] [place] See Rx Instructions .ROUTE .MEDSUPPLY Qty: 1 0RF Rx Instructions: As directed gabapentin 800 mg tablet 800 mg PO QHS oxygen NASAL Rx Instructions: 3 l simvastatin 40 MG tablet 40 mg PO QHS albuterol sulfate 2.5 MG/3 ML solution for nebulization 2.5 mg INHALATION Q2H PRN PRN (Reason: dyspnea, wheezing) Qty: 1 0RF (DME) pen needle, diabetic 1 EACH needle 1 ea ACHS Qty: 1 0RF buspirone 7.5 mg tablet 7.5 mg PO BID 30 Days Qty: 60 0RF (DME) FreeStyle Precision Jeff Strips Strip See Rx Instructions .Route Qty: 25 6RF Rx Instructions: As directed ([facility] [place]) FreeStyle Eileen 2 Sensor Kit See Rx Instructions .ROUTE .MEDSUPPLY Qty: 6 1RF Rx Instructions: 1 sensor q 14 days nitroglycerin 0.4 mg tablet, sublingual 0.4 mg SUBLINGUAL Q5-15M PRN (Reason: chest pain) Qty: 25 3RF Rx Instructions: until response; do not exceed 3 doses per episode ipratropium-albuterol 0.5 mg-3 mg(2.5 mg base)/3 mL solution for nebulization 3 ml inhalation Q4H PRN PRN (Reason: SOB &/OR WHEEZING) Qty: 180 6RF albuterol sulfate 90 mcg/actuation HFA aerosol inhaler 2 puff INHALATION Q6H PRN PRN (Reason: Cough) Qty: 8.5 2RF metoprolol tartrate 50 mg tablet 50 mg PO BID Qty: 180 3RF (DME) Dexcom G6 Sensor Device See Rx Instructions .Route Qty: 3 5RF Rx Instructions: 1 sensor q 10 days (DME) Dexcom G6 Transmitter Device See Rx Instructions .Route Qty: 1 1RF Rx Instructions: 1 transmitter q 90 days insulin lispro [Humalog U-100 Insulin] 100 unit/mL solution 60 unit continuous subcutaneous infusion .continuous Qty: 54 1RF Rx Instructions: via insulin pump ([facility] [place]) Omnipod 5 G6 Pods (Gen 5) Cartridge See Rx Instructions .Route Qty: 10 5RF Rx Instructions: 1 pod 72 hours Prolia 60 mg/mL syringe 60 mg subcut [id number] Qty: 1 1RF Breztri Aerosphere 160-9-4.8 mcg/actuation HFA aerosol inhaler 2 inh inhalation BID Qty: 10.7 6RF clopidogrel 75 mg tablet 75 mg PO DAILY Qty: 90 3RF Referrals / Follow Up: Bird Lujan MD [Primary Care Provider] - Disposition Disposition (needs filled in before D/C Order can be placed): Acute Care Hospital Charges/Coding Visit Charges Inpatient E&M: 25148 Disch Hosp >30min
[2024-07-26 17:17] LABS: Bedside Glucose 290 mg/dL (74-106)
[2024-07-26 17:17] LABS: Bedside Glucose 224 mg/dL (74-106)
[2024-07-27 14:13] LABS: Vitamin D 1,25-Dihydroxy 41.6 pg/mL (24.8-81.5)
== END 2024-07-26 15:13 | disposition short-term general hospital (02) | DRG 208 ==
LOC: ED 23:52 → PCU 07-24 00:13 → ICU 07-26 01:39
PROVIDERS: Hospitalist; Internal Medicine; Internal Medicine Critical Care Medicine; Admitting Provider Family Medicine; Emergency Provider Emergency Medicine; PCP Family Medicine
DX: U07.1 COVID-19 (principal); J12.82 Pneumonia due to coronavirus disease 2019; S06.5XAA Traumatic subdural hemorrhage with loss of consciousness status unknown, initial encounter; S06.4XAA Epidural hemorrhage with loss of consciousness status unknown, initial encounter; J96.11 Chronic respiratory failure with hypoxia; N18.4 Chronic kidney disease, stage 4 (severe); J44.1 Chronic obstructive pulmonary disease with (acute) exacerbation; N17.9 Acute kidney failure, unspecified; E87.1 Hypo-osmolality and hyponatremia; J44.0 Chronic obstructive pulmonary disease with (acute) lower respiratory infection; M62.82 Rhabdomyolysis; E10.42 Type 1 diabetes mellitus with diabetic polyneuropathy; D63.1 Anemia in chronic kidney disease; I95.9 Hypotension, unspecified; I12.9 Hypertensive chronic kidney disease with stage 1 through stage 4 chronic kidney disease, or unspecified chronic kidney disease; F32.A Depression, unspecified; I25.10 Atherosclerotic heart disease of native coronary artery without angina pectoris; E78.5 Hyperlipidemia, unspecified; E10.22 Type 1 diabetes mellitus with diabetic chronic kidney disease; E87.5 Hyperkalemia; F41.9 Anxiety disorder, unspecified; F17.210 Nicotine dependence, cigarettes, uncomplicated; I25.2 Old myocardial infarction; R19.5 Other fecal abnormalities; W19.XXXA Unspecified fall, initial encounter; R45.1 Restlessness and agitation; R29.6 Repeated falls; Z95.5 Presence of coronary angioplasty implant and graft; Z96.41 Presence of insulin pump (external) (internal); Z99.81 Dependence on supplemental oxygen; Z79.02 Long term (current) use of antithrombotics/antiplatelets; Z79.82 Long term (current) use of aspirin; Z79.899 Other long term (current) drug therapy; Z23 Encounter for immunization
CPT/HCPCS: 31500; 31720; 36415; 36600; 70450; 71045; 71046; 74018; 76770; 80048; 80053; 80069; 80076; 81001; 82274; 82306; 82330; 82340; 82550; 82570; 82652; 82728; 82803; 82962; 83036; 83540; 83550; 83615; 83735; 83880; 83970; 84100; 84145; 84300; 84478; 84484; 85014; 85018; 85025; 85027; 85379; 85610; 85652; 85730; 86140; 86850; 86900; 86901; 86920; 86921; 86922; 87070; 87077; 87184; 87186; 87205; 87631; 90656; 93005; 94002; 94640; 94668; 97110; 97162; 97166; 97535; 99252; 99285; J7030; J7040; J7050; P9016; A4216; G0463; J0612; J1940

== ENCOUNTER → 2024-10-16 | Outpatient (CLI) | payer OTHER, SELFPAY ==
--- NOTE | 2024-10-16 07:51 | CT_ITS ---
INDICATION: Lung nodule EXAMINATION: CT CHEST WITHOUT CONTRAST - CT Chest W/O Contrast Injection TECHNIQUE: Helically acquired images were obtained of the chest. A radiation dose optimization technique was used for this scan. IV Contrast dosage and agent: None. COMPARISON: 05/05/2024 FINDINGS: LUNGS, PLEURA AND LARGE AIRWAYS: Lung windows show stable underlying emphysema with nonspecific pleural thickening in both apices and in both hemithoraces. A previously noted 8 mm noncalcified nodule in the left upper lobe on axial image 31 and decreased in size from 8 mm on the previous study to 3 mm on current study. However, there is a new poorly defined and somewhat spiculated noncalcified nodule in the left upper lobe on axial image 41 measuring 9 mm. There is also a new 5 mm noncalcified left upper lobe nodule with pleural tail on axial image 44. On axial image 65 there is a new 6 mm noncalcified nodule in the right lower lobe. No organized infiltrate or effusion, no ground glass opacifications. Soft tissue windows show normal-appearing thyroid gland. No suspicious adenopathy. There are calcified coronary vessels. Limited cuts through the upper abdomen do not show a suspicious abnormality. There are tiny gallstones. Bony structures show degenerative change CT/Chest without Contrast IMPRESSION: Underlying emphysema with at least 3 new noncalcified nodules since the previous study in both lung russell, largest measures 0.9 cm the left upper lobe. Further evaluation with PET/CT scan to determinate metabolic activity is present. No organized infiltrate or effusion No suspicious adenopathy Electronically Signed: Pro Stevens MD at 21:18 EST ,
== END | disposition home or self-care (01) ==
LOC: CT 07:50
PROVIDERS: PCP Family Medicine; Referring Provider Nurse Practitioner Acute Care; Visit Provider Nurse Practitioner Acute Care
DX: R91.8 Other nonspecific abnormal finding of lung field (principal)
CPT/HCPCS: 71250

== ENCOUNTER → 2024-11-02 | Outpatient (CLI) | payer OTHER, SELFPAY ==
--- NOTE | 2024-11-02 09:46 | VDUE_ITS ---
Reason For Study: End stage renal disease Right Lower Arm Left Arm Distal Radial artery diameter 0.16x0.17 cm. Left Brachial artery diameter 0.36x0.37 cm. Right Arm Cephalic Vein at distal forearm measures Right Brachial artery diameter 0.28x0.28 cm. 0.15x0.15 cm. Cephalic Vein at distal forearm measures Cephalic Vein at mid forearm measures 0.26x0.30 cm. 0.19x0.18 cm. Cephalic Vein at mid forearm measures Cephalic Vein proximal forearm measures 0.31x0.34 cm. 0.20x0.24 cm. Cephalic Vein proximal forearm measures Cephalic Vein distal upper arm measures 0.27x0.32 cm. 0.12x0.16 cm. Cephalic Vein distal upper arm measures Cephalic Vein at mid upper arm measures 0.28x0.29 cm. 0.09x0.13 cm. Cephalic Vein at mid upper arm measures Cephalic Vein at proximal upper arm measures 0.27x0.31 cm. 0.11x0.15 cm. Cephalic Vein at proximal upper arm measures Proximal Basilic vein measures 0.28x0.33 cm. 0.22x0.22 cm. Mid Basilic vein measures 0.21x0.26 cm. Proximal Basilic vein measures 0.19x0.25 cm. Distal Basilic vein measures 0.23x0.25 cm. Mid Basilic vein measures 0.22x0.25 cm. Left Lower Arm Distal Basilic vein measures 0.23x0.26 cm. Proximal Radial artery diameter 0.20x0.20 cm. VL/Dialysis Vein Map PRE-OP BILAT Interpretation Summary Bilateral upper extremity arteries patent with normal waveforms and measurement s above. Bilateral upper extremity veins patent with measurements above. Ordering Physician: Christy Huerta Referring Physician: Bird Lujan MD Performed By: Maria Eugenia Jackson RVT and Student ???
== END | disposition home or self-care (01) ==
LOC: CVS 09:46
PROVIDERS: PCP Family Medicine; Referring Provider Internal Medicine Nephrology; Visit Provider Internal Medicine Nephrology
DX: Z01.818 Encounter for other preprocedural examination (principal); N18.6 End stage renal disease
CPT/HCPCS: 93985

== ENCOUNTER 2024-11-04 16:05 | Emergency (ER) | payer OTHER, SELFPAY ==
[2024-11-04 16:07] VITALS: BP 194/84; PULSE 72; RESP 15; TEMP 36.2; O2SAT 100; BMI 18.1
--- NOTE | 2024-11-04 18:40 | ED.RN ---
Called name for vitals update and IV start protocol. No answer, assumed pt LWBS.
== END 2024-11-04 18:39 | disposition left against medical advice (07) ==
LOC: ED 18:48
PROVIDERS: PCP Family Medicine
DX: Z53.21 Procedure and treatment not carried out due to patient leaving prior to being seen by health care provider (principal)

== ENCOUNTER 2024-11-20 18:43 | Emergency (ER) | payer OTHER, SELFPAY ==
[2024-11-20 18:44] VITALS: BP 214/96; PULSE 58; RESP 18; TEMP 36.5; O2SAT 100; BMI 17.9
--- NOTE | 2024-11-20 19:15 | EKG12_ITS ---
Test Reason : HTN Blood Pressure : */* mmHG Vent. Rate : 58 BPM Atrial Rate : 58 BPM P-R Int : 160 ms QRS Dur : 84 ms QT Int : 430 ms P-R-T Axes : 75 -65 86 degrees QTcB Int : 422 ms Sinus bradycardia Left axis deviation Minimal voltage criteria for LVH, may be normal variant ( Eddi product ) Anteroseptal infarct , age undetermined Abnormal ECG Confirmed by CASI DAIGLE, FELIPA ([id number]), health editor ARNALDO FENTON ([id number]) on 11/22/2024 10:54:34 A M Referred By: RAISSA Confirmed By: FELIPA LANCE MD
[2024-11-20 19:28] LABS: Absolute Lymphocyte Count 1.88 X10^3/uL (0.83-4.51); Absolute Neutrophil Count 4.4 X10^3/uL (2.0-7.7); Basophil# 0.05 X10^3/uL; Basophil% 0.6 % (0-1); Eosinophil# 0.59 X10^3/uL; Eosinophils% 7.6 % (0-5); Hematocrit 35.8 % (37-47); Hemoglobin 11.5 g/dL (12.0-15.0); Lymphocyte # 1.88 X10^3/ul (0.83-4.51); Lymphocyte % 24.4 % (19-41); Mean Corp Hgb Conc 32.1 g/dL (32-36); Mean Corpuscular Hgb 30.4 pg (27.0-32.0); Mean Corpuscular Volume 94.7 fL (81-99); Mean Platelet Vol. 9.1 fl (6.2-12.0); Monocyte# 0.75 X10^3/uL; Monocyte% 9.7 % (0-10); NRBC Flagged by Analyzer 0 % (0-5); Neutrophil # 4.41 X10^3/uL (2.7-7.7); Neutrophil % 57.2 % (47-70); Platelet Count 193 K/mm3 (150-450); RBC Distribution Width CV 12.6 % (11.6-14.6); RBC Distribution Width SD 42.2 fl (35.1-43.9); Red Blood Count 3.78 M/mm3 (4.2-5.4); White Blood Count 7.7 K/mm3 (4.4-11.0)
[2024-11-20] MEDS: hydrALAZINE 20 MG/ML Vial IV (19:40)
--- NOTE | 2024-11-20 19:43 | EX.ED.DYSGE1 ---
HPI <ELLIE Segovia - Last Filed: 11/20/24 22:07> History of Present Illness Chief Complaint: Hypertension Narrative Narrative: Patient is a 63-year-old female with history of COPD on 3 L nasal cannula daily type 1 diabetes, currently receiving hemodialysis for 1 month. Patient has a port to her right chest. Patient states for the last month, she is noticed that her blood pressure has been increasing. She is on lisinopril 2.5 mg twice a day as well as metoprolol tartrate 50 mg twice a day. Patient states that the blood pressure over the last 2 weeks has been greater than 200 systolic. She did see her events solutions consultant who referred her to the emergency department, however when she came here there is a long wait so she went home. Tonight, the blood pressure was over 220, she had a headache and is here for evaluation. Denies any chest pain or shortness of breath. PFS <ELLIE Segovia - Last Filed: 11/20/24 22:07> [facility] Medical History (Updated 11/20/24 @ 23:[address] Justin Parisi, ) Chronic obstructive pulmonary disease Lung nodule, multiple Osteoporosis Presence of insulin pump DM type 1 (diabetes mellitus, type 1) Severely underweight adult Nicotine abuse Lung nodule, solitary Cigarette nicotine dependence Fissure in skin of foot Adrian's sign present Tobacco abuse CKD (chronic kidney disease) stage 4, GFR 15-29 ml/min Body mass index (BMI) less than 16.5 Underweight Polyneuropathy due to type 1 diabetes mellitus Stage 4 chronic kidney disease due to type 1 diabetes mellitus Respiratory failure with hypoxia Smoking greater than 30 pack years Anemia Diabetic nephropathy, type I Hyperkalemia Renal insufficiency Diabetes Essential (primary) hypertension Hypersomnia Anxiety Depression Atherosclerosis of coronary artery of [place] heart without angina pectoris NSTEMI (non-ST elevated myocardial infarction) (01/12/18) Hyperlipidemia COPD (chronic obstructive pulmonary disease) Home Medications ?Medication ?Instructions ?Recorded ?Last Taken ?Type simvastatin 40 mg tablet 40 mg PO QHS cholesterol 06/21/18 07/23/24 20:00 History albuterol sulfate 2.5 mg/3 mL 2.5 mg (3 mL) inhalation Q2H PRN 06/23/18 Unknown Rx (0.083 %) solution for nebulization PRN dyspnea, wheezing ##1 aspirin 81 mg tablet,delayed 81 mg PO DAILY [facility] 12/31/19 07/23/24 20:00 History release pen needle, diabetic 32 gauge x ##1 08/29/20 Unknown Rx flash glucose scanning reader #1 ea 11/20/20 Unknown Rx (FreeStyle Eileen 2 [place]) blood sugar diagnostic (FreeStyle #25 ea 08/26/23 Unknown Rx Precision Jeff Strips) FreeStyle Eileen 2 Sensor (flash #6 ea 08/27/23 Unknown Rx glucose sensor) oxygen NASAL 12/03/23 Unknown History ipratropium 0.5 mg-albuterol 3 mg 3 ml inhalation Q4H PRN PRN SOB 12/29/23 Unknown Rx (2.5 mg base)/3 mL nebulization &/OR WHEEZING #180 mL soln buspirone 7.5 mg tablet 7.5 mg PO BID 30 days #60 tabs 04/15/24 07/23/24 20:00 Rx insulin pump cart,automated,BT #10 ea 05/31/24 Unknown Rx (Omnipod 5 G6 Pods (Gen 5) subcutaneous cartridge) denosumab 60 mg/mL subcutaneous 60 mg subcut [id number] #1 mL 06/10/24 07/28/23 19:15 Rx syringe (Prolia) clopidogrel 75 mg tablet 75 mg PO DAILY #90 tabs 07/26/24 Unknown Rx blood-glucose sensor (Dexcom G6 #3 ea 10/05/24 Unknown Rx Sensor device) gabapentin 800 mg tablet 200 mg PO BID neuropathy 10/07/24 Unknown History albuterol sulfate 90 mcg/actuation 2 puff inhalation Q6H PRN PRN 10/11/24 Unknown Rx aerosol inhaler Cough #8.5 grams fluticasone fur. 200 mcg-umeclid 1 inh inhalation DAILY #3 ea 10/13/24 Unknown Rx 62.5 mcg-vilant 25 mcg inhalat.powder (Trelegy Ellipta) nitroglycerin 0.4 mg sublingual 0.4 mg sublingual Q5-15M PRN chest 10/21/24 Unknown Rx tablet pain #25 tabs insulin lispro 100 unit/mL 60 unit (0.6 mL) continuous 10/25/24 Unknown Rx subcutaneous solution (Humalog subcutaneous infusion .continuous U-100 Insulin) #54 mL lisinopril 2.5 mg tablet 5 mg PO QDAY awaiting mail order RX 11/04/24 Unknown History metoprolol tartrate 50 mg tablet 50 mg PO BID #180 tabs 11/11/24 Unknown Rx blood-glucose transmitter (Dexcom #2 ea 11/15/24 Unknown Rx G6 Transmitter device) amlodipine 10 mg tablet (Norvasc) 10 mg PO DAILY 30 days #30 tabs 11/20/24 Unknown Rx Allergy/AdvReac Type Severity Reaction Status Date / Time No Known Allergies Allergy Verified 11/20/24 18:44 Family History Mother Heart disease COPD (chronic obstructive pulmonary disease) Lupus Daughter Growth disorder Down syndrome Fibromyalgia Grandfather Colon cancer Diabetes Grandmother Heart disease CVA (cerebral vascular accident) Diabetes Pulmonary disease Sister Hypertension Kidney disease Surgical History H/O: Hx of appendectomy H/O: hysterectomy History of coronary artery stent placement (02/04/18) Social History (Updated 11/04/24 @ 15:22 by Bria Matthew) housing: house pets and animals: Yes pets and animals: cat(s) Smoking Status: Current every day smoker tobacco type: e-cigarettes how long ago did patient quit smoking: Since 05/2024 cut back and has only had ~ 10 cigarettes since then. quit status: considering quitting alcohol intake: never substance use type: does not use caffeine: Yes Type: carbonated beverages Number of servings: 4 what type of physical activity do you participate in: none seatbelt use: always do you feel safe at home: Yes ROS <ELLIE Segovia - Last Filed: 11/20/24 22:07> ROS ED ROS Narrative Constitutional: Negative for fever, chills, weight loss, weakness Eyes: Negative for vision loss, vision change, double vision ENT: Negative for any sore throat, ear pain, congestion Cardiovascular: Negative for any chest pain, tightness, palpitations. Concern for elevated blood pressure Respiratory: Negative for any cough, sputum production, hemoptysis, dyspnea, dyspnea on exertion, orthopnea Gastrointestinal: Negative for any abdominal pain, nausea, vomiting, diarrhea, constipation, blood in stool, blood in vomit : Negative for any urinary frequency, dysuria, retention, blood in urine Muscle skeletal: Negative for any neck pain, back pain Neurological: Negative for any syncope, dizziness. Positive for headache Skin: Negative for any rashes, itching, abrasions, lacerations Psychiatric: Negative for any depression, anxiety, stress, suicidal ideation, homicidal ideation Hematologic: Negative for any excessive bruising, easy bleeding EXAM <ELLIE Segovia - Last Filed: 11/20/24 22:07> Physical Exam Narrative Exam Narrative: Vital signs reviewed. Blood pressure was 220/84- evaluation. Patient had no other symptoms. HEET: Head normocephalic atraumatic, TMs clear bilaterally. Posterior pharynx is clear, moist mucous membranes. Nares clear bilaterally. Neck: Supple with no lymphadenopathy or tenderness. No signs of meningismus. Cardiac: Regular rate and rhythm no murmurs gallops or rubs, equal peripheral pulses bilaterally. Respiratory: Diminished lung sounds in the bases, I believe this would be chronic.. No chest tenderness. Abdomen: Soft, nontender, nondistended. No abdominal bruit or pulsatile masses. No hepatosplenomegaly Extremities: No peripheral edema, no signs of gross trauma or deformity. Active full range of motion of all extremities. Neuro: Cranial nerves II through XII intact, no focal neurological deficits. Neuroexam unremarkable. Skin: Clean dry and intact with no rash, purpura, petechiae, vesicles or pustules. Backs/flank: No CVA tenderness, no midline spinal tenderness, no deformity. Psych: Normal mood and affect. No SI, HI or acute psychosis. Const Vital Signs: 11/20/24 18:44 11/20/24 20:23 11/20/24 22:00 Temperature 97.7 F L Temperature Source Oral Pulse Rate 58 L 64 67 Respiratory Rate 18 14 19 H Blood Pressure 214/96 H 136/50 H 118/42 L Blood Pressure Mean 135 78 67 Pulse Ox 100 100 100 Oxygen Delivery Method Nasal Cannula Room Air Room Air Oxygen Flow Rate (L/min) 3 <Dr. Justin Parisi DO - Last Filed: 11/20/24 23:48> Physical Exam Const Vital Signs: 11/20/24 18:44 11/20/24 20:23 11/20/24 22:00 Temperature 97.7 F L Temperature Source Oral Pulse Rate 58 L 64 67 Respiratory Rate 18 14 19 H Blood Pressure 214/96 H 136/50 H 118/42 L Blood Pressure Mean 135 78 67 Pulse Ox 100 100 100 Oxygen Delivery Method Nasal Cannula Room Air Room Air Oxygen Flow Rate (L/min) 3 [facility] <Alex KaurELLIE - Last Filed: 11/20/24 22:07> [facility] Lab Data Labs: Laboratory Results - last 24 hr 11/20/24 11/20/24 19:20 21:05 WBC 7.7 RBC 3.78 L Hgb 11.5 L Hct 35.8 L MCV 94.7 MCH 30.4 MCHC 32.1 RDW Std Deviation 42.2 RDW Coeff of Iron 12.6 Plt Count 193 MPV 9.1 Immature Gran % (Auto) 0.500 Neut % (Auto) 57.2 Lymph % (Auto) 24.4 Eaton % (Auto) 9.7 Eos % (Auto) 7.6 H Baso % (Auto) 0.6 Absolute Neuts (auto) 4.4 Absolute Lymphs (auto) 1.88 Nucleated RBC % 0 Sodium 137 Potassium 4.4 Chloride 102 Carbon Dioxide 33.0 H Anion Gap 2 L BUN 23 H Creatinine 2.85 H Estim Creat Clear Calc 15.85 Est GFR (MDRD) Af Amer 21 L Est GFR (MDRD) Non-Af 18 L BUN/Creatinine Ratio 8.1 L Glucose 105 Calcium 9.3 Total Bilirubin 0.30 AST 14 L ALT 17 Alkaline Phosphatase 71 Troponin I High Sens 113 H 108 H Total Protein 6.3 L Albumin 2.9 L Globulin 3.4 Albumin/Globulin Ratio 0.9 Radiography Diagnostic Testing: Clinical Impression(s) from Imaging Studies Chest X-Ray 11/20/24 20:05 IMPRESSION: No acute findings in the chest. Electronically Signed: Jorge L Herzog MD at 21:31 EST , EKG Sinus bradycardia: Attestation: I personally reviewed and interpreted this EKG as follows: Interpretation: Sinus Rhythm Comments: Sinus bradycardia, rate of 58 bpm, NJ interval 160 ms, QRS duration 84 ms, no acute ST elevation, no acute infarct noted. Second EKG, normal sinus rhythm: Attestation: I personally reviewed and interpreted this EKG as follows: Interpretation: Sinus Rhythm Comments: EKG shows a rate of 67 bpm, NJ 150 ms, QRS duration 78 ms, no acute ST elevation, no acute infarct noted Prior: Unchanged Treatment and Re-Evaluation :: Differential diagnosis includes however is not limited to: ACS, GA, hypertensive urgency, hypertensive emergency, worsening kidney function, electrode abnormality Patient is hypertensive however no other symptoms. Patient did receive an EKG that was unremarkable. Presenting to the emergency department for elevated blood pressure. Patient will receive some basic laboratory values, chest x-ray, troponin as well as given 20 mg of IV hydralazine. Patient will be reevaluated. All radiologic examinations were read, reviewed by the emergency department attending. From these reads, a plan of care will be put in place. Patient's laboratory values showed a stable anemia, no leukocytosis, chemistry showed a creatinine 2.85, she is on hemodialysis Friday. She not miss a day. Patient's initial troponin was 113, patient's troponin on July 2024. Was 30, this is a significant increase. A repeat will be drawn. Patient was given 20 of hydralazine, repeat blood pressure is 136/50. Patient is 100% on her 3 L. Patient remained stable <Dr. Justin Parisi, DO - Last Filed: 11/20/24 23:48> [facility] MDM Narrative Medical decision making narrative: Supervisory Physician Note Patient was seen and examined with the Advanced Practice Provider. Nursing notes and vital signs have been reviewed. Pertinent old records have been reviewed. I agree with the essential elements of the TONJA's history, physical exam, assessment, and plan. The differential diagnosis and management options were discussed with the TONJA. I participated in determining and agree with the management, procedures, final impression and disposition as documented. See changes noted by me. Please see addendum or separate note for any additional details. 63-year-old female with history of COPD on 3 L nasal cannula, DM 1, HD Friday, Friday, Friday presents for evaluation of hypertension. Patient has a history of hypertension. Blood pressure in the 200s the last 2 weeks. Endorsed headache that resolved. Denies any chest pain, shortness of breath, Wilmer pain, nausea, vomiting. Physical exam: Gen: A&O x3, NAD Head: Normocephalic, atraumatic Eyes: No sclera icterus, conjunctiva clear ENT: Moist mucous membranes Neck: Trachea midline, No JVD CV: RRR, no murmurs, no peripheral edema, right HD port Resp: Lungs CTA BL, no w/r/c, on 3 L nasal cannula-baseline GI: Abd soft, non-distended, non-tender, no r/r/g Musc: Full ROM, no deformity Skin: Warm, dry Neuro: Alert, oriented, grossly intact, sensation intact Psych: Cooperative, appropriate mood and affect On presentation, patient hypertensive in the 200s. IV hydralazine ordered. Cardiac workup ordered. EKG was personally reviewed and interpreted by me. EKG shows sinus bradycardia with a heart rate of 58. Patient has some mild left ventricular hypertrophy. She has minimal ST changes in V2 and V3 however this is similar to previous EKG in July 2024. No acute ischemic changes. Chest x-ray without pneumonia, effusion, pneumothorax, cardiomegaly. Patient's HD catheter is visualized. CBC without leukocytosis. Patient has baseline anemia. CMP shows baseline CKD. Troponin elevated at 113. Patient not having any chest pain. She has no acute ischemic changes on EKG. This may be likely secondary to her hypertension versus elevation from CKD/dialysis. Repeat EKG was obtained and again shows normal sinus rhythm with a heart rate of 67. No acute ischemic changes. EKG looks similar to prior. Repeat troponin 108. Patient still is asymptomatic and not endorsing any chest pain. Cardiology was contacted and Alex Kaur spoke with cardiology, Dr. Coley. No further intervention needed at this time. Patient was updated on all her results as well as the elevated troponin. I do think that this may be chronic elevation in nature however cannot fully rule out ACS/hypertension emergency. Risk and benefits to admission versus discharge was explained to the patient. She would like to discharge home. I do think this is reasonable as patient is not having any chest pain and has no acute ischemic changes on her EKG. Her blood pressure has improved. I spoke with the hospitalist service Dr. Taveras he agrees that this is likely chronic in nature and given patient is asymptomatic agrees with discharge home. Patient stable to discharge home. Patient was educated to continue to monitor her blood pressure at home. She was told to continue her antihypertensives as well as will add on 10 mg Norvasc daily. She was educated to monitor her blood pressure at home to make sure she does not become hypotensive or hypertensive. She was told to return back immediately to the emergency department if she develops symptoms such as chest pain. She confirmed understand of the plan. Follow-up with cardiology and primary care physician. Impression: 1. Hypertension with known hypertension 2. History of DM 1 with CKD on HD 3. Chronic Anemia Lab Data Labs: Laboratory Results - last 24 hr 11/20/24 11/20/24 19:20 21:05 WBC 7.7 RBC 3.78 L Hgb 11.5 L Hct 35.8 L MCV 94.7 MCH 30.4 MCHC 32.1 RDW Std Deviation 42.2 RDW Coeff of Iron 12.6 Plt Count 193 MPV 9.1 Immature Gran % (Auto) 0.500 Neut % (Auto) 57.2 Lymph % (Auto) 24.4 [place]aton % (Auto) 9.7 Eos % (Auto) 7.6 H Baso % (Auto) 0.6 Absolute Neuts (auto) 4.4 Absolute Lymphs (auto) 1.88 Nucleated RBC % 0 Sodium 137 Potassium 4.4 Chloride 102 Carbon Dioxide 33.0 H Anion Gap 2 L BUN 23 H Creatinine 2.85 H Estim Creat Clear Calc 15.85 Est GFR (MDRD) Af Amer 21 L Est GFR (MDRD) Non-Af 18 L BUN/Creatinine Ratio 8.1 L Glucose 105 Calcium 9.3 Total Bilirubin 0.30 AST 14 L ALT 17 Alkaline Phosphatase 71 Troponin I High Sens 113 H 108 H Total Protein 6.3 L Albumin 2.9 L Globulin 3.4 Albumin/Globulin Ratio 0.9 Radiography Diagnostic Testing: Clinical Impression(s) from Imaging Studies Chest X-Ray 11/20/24 20:05 IMPRESSION: No acute findings in the chest. Electronically Signed: Jorge L Herzog MD at 21:31 EST , Discharge Plan Triage Chief Complaint: Hypertension ED Midlevel Provider: Alex Kaur ED Provider: Justin Parisi Dx/Rx/DC Orders Clinical Impression: Hypertension Instructions: ED Hypertension, Established, ED High Blood Pressure Hypertension Prescriptions: New amlodipine [Norvasc] 10 mg tablet 10 mg PO DAILY 30 Days Qty: 30 0RF No Action aspirin 81 mg tablet,delayed release (DR/EC) 81 mg PO DAILY (DME) FreeStyle Eileen 2 [place] Misc See Rx Instructions .ROUTE .MEDSUPPLY Qty: 1 0RF Rx Instructions: As directed gabapentin 800 mg tablet 200 mg PO BID oxygen NASAL Rx Instructions: 3 l lisinopril 2.5 mg tablet 5 mg PO QDAY simvastatin 40 MG tablet 40 mg PO QHS albuterol sulfate 2.5 MG/3 ML solution for nebulization 2.5 mg INHALATION Q2H PRN PRN (Reason: dyspnea, wheezing) Qty: 1 0RF (DME) pen needle, diabetic 1 EACH needle 1 ea ACHS Qty: 1 0RF buspirone 7.5 mg tablet 7.5 mg PO BID 30 Days Qty: 60 0RF (DME) FreeStyle Precision Jeff Strips Strip See Rx Instructions .Route Qty: 25 6RF Rx Instructions: As directed (DME) FreeStyle Eileen 2 Sensor Kit See Rx Instructions .ROUTE .MEDSUPPLY Qty: 6 1RF Rx Instructions: 1 sensor q 14 days ipratropium-albuterol 0.5 mg-3 mg(2.5 mg base)/3 mL solution for nebulization 3 ml inhalation Q4H PRN PRN (Reason: SOB &/OR WHEEZING) Qty: 180 6RF (DME) Omnipod 5 G6 Pods (Gen 5) Cartridge See Rx Instructions .Route Qty: 10 5RF Rx Instructions: 1 pod 72 hours Prolia 60 mg/mL syringe 60 mg subcut [id number] Qty: 1 1RF clopidogrel 75 mg tablet 75 mg PO DAILY Qty: 90 3RF (DME) Dexcom G6 Sensor Device See Rx Instructions .Route Qty: 3 5RF Rx Instructions: 1 sensor q 10 days albuterol sulfate 90 mcg/actuation HFA aerosol inhaler 2 puff INHALATION Q6H PRN PRN (Reason: Cough) Qty: 8.5 2RF Trelegy Ellipta 200-62.5-25 mcg blister with device 1 inh inhalation DAILY Qty: 3 0RF nitroglycerin 0.4 mg tablet, sublingual 0.4 mg SUBLINGUAL Q5-15M PRN (Reason: chest pain) Qty: 25 44RF Rx Instructions: until response; do not exceed 3 doses per episode insulin lispro [Humalog U-100 Insulin] 100 unit/mL solution 60 unit continuous subcutaneous infusion .continuous Qty: 54 1RF Rx Instructions: via insulin pump metoprolol tartrate 50 mg tablet 50 mg PO BID Qty: 180 3RF (DME) Dexcom G6 Transmitter Device See Rx Instructions .Route Qty: 2 1RF Rx Instructions: 1 transmitter q 90 days Primary Care Provider: Bird Lujan Referrals: Salomon Robbins MD [Med Staff - Active Staff] - 3-5 Days Bird Lujan MD [Primary Care Provider] - 3-5 Days Activity Restrictions/Additional Instructions: Monitor your blood pressure at home. Return back to the ED if symptoms change or worsen. Follow-up with cardiology and primary care physician. Print Language: Belgian Disposition Disposition: Home, Self Care
[2024-11-20 19:54] LABS: ALB/GLOB Ratio 0.9 RATIO (0.9-2.4); AST(SGOT) 14 U/L (15-37); Alanine Aminotransfer ALT/SGPT 17 U/L (13-56); Albumin, Serum 2.9 g/dL (3.2-5.0); Alkaline Phosphatase 71 U/L (45-117); Anion Gap 2 (5-15); BUN 23 mg/dL (7-18); BUN/Creat Ratio 8.1 RATIO (10-20); Calcium,Total 9.3 mg/dL (8.5-10.1); Chloride 102 mmol/L (98-107); Creatinine, Serum 2.85 mg/dL (0.55-1.02); EST Glomerular Filtration Rate 18 mL/min (>60); Est Glom Filt Rate - Afr Amer 21 mL/min (>60); Estimated Creatinine Clearance 15.85 ml/min; Globulin 3.4 g/dL (2.2-4.2); Glucose 105 mg/dL (74-106); Potassium 4.4 mmol/L (3.5-5.1); Protein, Total 6.3 g/dL (6.4-8.2); Sodium Level 137 mmol/L (136-145)
--- NOTE | 2024-11-20 20:05 | RAD_ITS ---
EXAM: XR CHEST, 1 VIEW CLINICAL INDICATION: cough TECHNIQUE: Frontal view of the chest. COMPARISON: 07/26/2024 FINDINGS: LUNGS AND PLEURAL SPACES: Unremarkable. No consolidation or edema. No pneumothorax. No effusion. HEART: Unremarkable. Cardiac silhouette not enlarged. MEDIASTINUM: Central airways and mediastinal contour are unremarkable. BONES/JOINTS: Unremarkable. No acute fracture. SOFT TISSUES: Unremarkable. TUBES, LINES AND DEVICES: Right central venous catheter is in place the distal tip overlying the superior vena cava. RAD/Chest 1 View (Portable) IMPRESSION: No acute findings in the chest. Electronically Signed: Jorge L Herzog MD at 21:31 EST ,
[2024-11-20 20:11] LABS: Troponin-I HS 113 pg/mL (3.0-54.0)
[2024-11-20 20:23] VITALS: BP 136/50; PULSE 64; RESP 14; O2SAT 100
[2024-11-20 21:28] LABS: Troponin-I HS 108 pg/mL (3.0-54.0)
--- NOTE | 2024-11-20 21:43 | EKG12_ITS ---
Test Reason : CP, REPEAT Blood Pressure : */* mmHG Vent. Rate : 67 BPM Atrial Rate : 67 BPM P-R Int : 150 ms QRS Dur : 78 ms QT Int : 426 ms P-R-T Axes : 76 -74 52 degrees QTcB Int : 450 ms Normal sinus rhythm Left axis deviation Minimal voltage criteria for LVH, may be normal variant ( Eddi product ) Septal infarct , age undetermined Abnormal ECG Confirmed by CASI DAIGLE, FELIPA ([id number]), sports editor [place] ([id number]) on 11/22/2024 11:01:45 AM Referred By: RAISSA Confirmed By: FELIPA LANCE MD
[2024-11-20 22:00] VITALS: BP 118/42; PULSE 67; RESP 19; O2SAT 100
[2024-11-20 23:26] VITALS: BP 119/49; PULSE 73; RESP 19; TEMP 36.8; O2SAT 100
== END 2024-11-20 23:27 | disposition home or self-care (01) ==
PROVIDERS: Nurse Practitioner; Emergency Provider Surgery; PCP Family Medicine; Visit Provider Surgery
DX: I12.9 Hypertensive chronic kidney disease with stage 1 through stage 4 chronic kidney disease, or unspecified chronic kidney disease (principal); N18.4 Chronic kidney disease, stage 4 (severe); J44.9 Chronic obstructive pulmonary disease, unspecified; E10.22 Type 1 diabetes mellitus with diabetic chronic kidney disease; E10.42 Type 1 diabetes mellitus with diabetic polyneuropathy; Z79.4 Long term (current) use of insulin; D63.1 Anemia in chronic kidney disease; I25.10 Atherosclerotic heart disease of native coronary artery without angina pectoris; I25.2 Old myocardial infarction; E78.5 Hyperlipidemia, unspecified; F17.290 Nicotine dependence, other tobacco product, uncomplicated; Z96.41 Presence of insulin pump (external) (internal); Z99.2 Dependence on renal dialysis; Z99.81 Dependence on supplemental oxygen; Z79.02 Long term (current) use of antithrombotics/antiplatelets; Z79.51 Long term (current) use of inhaled steroids; Z79.82 Long term (current) use of aspirin; Z79.899 Other long term (current) drug therapy

== ENCOUNTER → 2024-12-17 | Outpatient (CLI) | payer MEDICARE, OTHER, SELFPAY ==
--- NOTE | 2024-12-17 13:48 | ECHOD_ITS ---
Reason For Study Reason For Study: DYSPNEA Procedure This was a 2D Doppler, Color Flow transthoracic echocardiogram. The study was technically difficult. Exam performed in department. Left Ventricle Normal LV size. The estimated ejection fraction is 60 %. No evidence for diastolic dysfunction. No regional wall motion abnormalities noted. Right Ventricle Normal RV size. Normal systolic function. Atria The left and right atria are normal. No doppler evidence for ASD. Mitral Valve There is no mitral valve stenosis. Mild (1+) mitral valve insufficiency. Tricuspid Valve There is no tricuspid stenosis. Trivial tricuspid valve insufficiency. Unable to estimate RV systolic pressure due to insufficient tricuspid regurgitant envelope. Aortic Valve Trisinus/trileaflet aortic valve. There is no aortic stenosis. No aortic valve insufficiency. Pulmonic Valve There is no pulmonic valvular stenosis. Trivial pulmonic valve insufficiency. Great Vessels Normal aortic root. Pericardium/Pleural No pericardial effusion. MMode/2D Measurements & Calculations LVIDd: 3.8 cm IVSd: 0.81 cm LVOT diam: 1.8 cm LVIDs: 2.9 cm LVPWd: 0.97 cm LVOT area: 2.5 cm2 RVDd: 3.3 cm FS: 25.0 % asc Aorta Diam: 2.6 cm LAV(MOD-bp): 38.2 ml LVAd ap4: 23.2 cm2 LAV(MOD-bp) Indexed: 24.8 ml/m2 LVLd ap4: 7.2 cm LAV(MOD-sp2): 57.9 ml EDV(MOD-sp4): 61.5 ml LAV(MOD-sp4): 21.1 ml EDV(sp4-el): 63.4 ml LVAs ap4: 13.4 cm2 LVLs ap4: 6.3 cm ESV(MOD-sp4): 24.3 ml ESV(sp4-el): 24.1 ml EF(MOD-sp4): 60.6 % EF(sp4-el): 61.9 % LVAd ap2: 22.5 cm2 SV(MOD-sp4): 37.3 ml SV(MOD-sp2): 34.2 ml LVLd ap2: 7.4 cm SI(MOD-sp4): 24.2 ml/m2 SI(MOD-sp2): 22.2 ml/m2 EDV(MOD-sp2): 58.4 ml EDV(sp2-el): 58.6 ml LVAs ap2: 13.1 cm2 LVLs ap2: 6.1 cm ESV(MOD-sp2): 24.2 ml ESV(sp2-el): 23.8 ml EF(MOD-sp2): 58.6 % SV(sp4-el): 39.2 ml Ao sinus diam: 2.[address] Junction: 2.3 cm LA dimension(2D): 3.2 cm LA A4 area: 10.2 cm2 RA A4 area: 9.4 cm2 TAPSE: 1.8 cm Time Measurements MV dec time: 0.30 sec Doppler Measurements & Calculations MV E max shoaib: 77.2 cm/sec Lat Peak E' Shoaib: 8.0 cm/sec Med Peak E' Shoaib: 6.1 cm/sec MV A max shoaib: 101.7 cm/sec E/E' lat: 9.6 E/E' med: 12.7 MV E/A: 0.76 MV dec slope: 255.9 cm/sec2 Ao V2 max: 148.7 cm/sec LV V1 max: 124.2 cm/sec Ao max P.8 mmHg LV V1 max P.2 mmHg Ao V2 mean: 102.4 cm/sec LV V1 mean P.4 mmHg Ao mean P.7 mmHg LV V1 mean: 85.9 cm/sec Ao V2 VTI: 33.6 cm LV V1 VTI: 29.7 cm AV (velocity ratio): 0.88 JUSTO(I,D): 2.2 cm2 JUSTO(V,D): 2.1 cm2 SV(LVOT): 74.3 ml PA V2 max: 104.2 cm/sec TR max shoaib: 289.0 cm/sec TR max P.4 mmHg ECHO/Echo Complete Interpretation Summary The estimated ejection fraction is 60 %. No evidence for diastolic dysfunction. Mild (1+) mitral valve insufficiency. Ordering Physician: Kayleigh Payne Referring Physician: Bird Lujan MD Performed By: Lucina Morgan RDCS
== END | disposition home or self-care (01) ==
PROVIDERS: PCP Family Medicine; Referring Provider Physician Assistant; Visit Provider Physician Assistant
DX: Z01.818 Encounter for other preprocedural examination (principal); N18.6 End stage renal disease; R06.09 Other forms of dyspnea; Z99.2 Dependence on renal dialysis
CPT/HCPCS: 93306

== ENCOUNTER 2024-12-28 09:52 | Day surgery (SDC) | payer MEDICARE, OTHER, SELFPAY ==
--- NOTE | 2024-12-14 19:07 | PAT.ANESEVAL ---
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 When Was Last Pacemaker Check QUESTION #4 FULL TEXT: You/Your Family Experience fever (hyperthermia) with Anesthesia Last Oral Intake Last Oral intake: Last Oral Intake NPO since Meds taken in AM with sips of water? Meds patient instructed to take am of surgery PONV PONV - property preservation specialist: PONV - property preservation specialist Female Yes 12/14/24 13:25 HX of Motion Sickness No 12/14/24 13:25 HX of N/V After Surgery No 12/14/24 13:25 Non-Smoker No 12/14/24 13:25 Duration of Surgery greater Yes 12/14/24 13:25 than 60 minutes Number of Risk Factors 2 12/14/24 13:25 PONV Score Moderate Risk 12/14/24 13:25 Height & Weight Height & Weight: Anesthesia: Height & Weight Height 5 ft 6 in 11/20/24 18:44 Respiratory Assessment Respiratory Assessment - property preservation specialist: Respiratory Tract Infection Hx - property preservation specialist Hx Respiratory Tract Infection No 12/14/24 13:25 STOP Sleep Apnea STOP Sleep Apnea - property preservation specialist: STOP Sleep Apnea - property preservation specialist Hx Hypertension Yes: CONTROLLED ON MED 12/14/24 13:25 Hx Sleep Apnea No 12/14/24 13:25 CPAP No 12/14/24 13:25 BIPAP No 12/14/24 13:25 Do you snore loudly (louder No 12/14/24 13:25 than talking or can be heard Do you often feel tired/ No 12/14/24 13:25 fatigued/ sleepy during daytime? Has anyone observed you stop No 12/14/24 13:25 breathing during sleep? STOP Results Negative 12/14/24 13:25 QUESTION #5 FULL TEXT : Do you snore loudly (louder than talking or can be heard through closed doors)? Tobacco Use History Tobacco Use History - property preservation specialist: Tobacco Use History - property preservation specialist Tobacco Use Cigarettes 07/26/24 05:00 Smoking Status Former smoker 12/14/24 13:25 Hx Tobacco Use Yes 12/14/24 13:25 Years Smoking Packs Smoked per Day Smoking Cessation Date was Yes - quit smoking within 15 12/14/24 13:25 within the last 15 years years Hx Smoking Cessation Date Hx Smoking Cessation Counseling Hematologic Medial History Hematologic Hx - property preservation specialist: Hematologic Medical Hx - clinical counselor Hx of Blood Transfusion No 12/14/24 13:25 Hx of Transfusion in last 3 No 12/14/24 13:25 Months Date of Last Transfusion (if within last 3 months) Ever experience any problems No 12/14/24 13:25 with transfusion(s)? Specify any problems Hx of Preganancy in last 3 No 12/14/24 13:25 Months Nurse Filling Out Transfusion VCHRISTIN 12/14/24 13:25 & Questions: Date: 12/14/24 12/14/24 13:25 Time: 13:26 12/14/24 13:25 Patient unable to answer at this time (ie. confused, unrespo /Reproduction History /Reproductive History - property preservation specialist: /Reproductive Hx- property preservation specialist Hx Now Gestational Age (in weeks): EDC: Hx Hx Para Hx Section SAB PFSH Medical History (Updated 12/14/24 @ 13:27 by Regina Harrison) On home oxygen therapy Wears hearing aid Wears glasses Post-menopausal Insulin dependent diabetes mellitus Diabetes History of renal dialysis History of renal disease Anemia High cholesterol Easy bruising Excessive bleeding Injury of head and neck Former smoker Emphysema, unspecified History of edema History of echocardiogram History of stress test Cardiology follow-up encounter Osteoporosis Presence of insulin pump Severely underweight adult Lung nodule, multiple Nicotine abuse Lung nodule, solitary Fissure in skin of foot Groton's sign present Tobacco abuse CKD (chronic kidney disease) stage 4, GFR 15-29 ml/min Body mass index (BMI) less than 16.5 Underweight Polyneuropathy due to type 1 diabetes mellitus Stage 4 chronic kidney disease due to type 1 diabetes mellitus Respiratory failure with hypoxia Smoking greater than 30 pack years Anemia Diabetic nephropathy, type I Hyperkalemia Renal insufficiency Diabetes Chronic obstructive pulmonary disease Essential (primary) hypertension Hypersomnia Anxiety Depression Atherosclerosis of coronary artery of [place] heart without angina pectoris NSTEMI (non-ST elevated myocardial infarction) (01/12/18) DM type 1 (diabetes mellitus, type 1) Hyperlipidemia COPD (chronic obstructive pulmonary disease) Home Medications ?Medication ?Instructions ?Recorded ?Last Taken ?Type simvastatin 40 mg tablet 40 mg PO QHS cholesterol 06/21/18 07/23/24 20:00 History albuterol sulfate 2.5 mg/3 mL 2.5 mg (3 mL) inhalation Q2H PRN 06/23/18 Unknown Rx (0.083 %) solution for nebulization PRN dyspnea, wheezing ##1 aspirin 81 mg tablet,delayed 81 mg PO DAILY heart health 12/31/19 07/23/24 20:00 History release pen needle, diabetic 32 gauge x ##1 08/29/20 Unknown Rx flash glucose scanning reader #1 ea 11/20/20 Unknown Rx (FreeStyle Eileen 2 [place]) blood sugar diagnostic (FreeStyle #25 ea 08/26/23 Unknown Rx Precision Jeff Strips) FreeStyle Eileen 2 Sensor (flash #6 ea 08/27/23 Unknown Rx glucose sensor) oxygen See Rx Instructions NASAL .COMPLEX 12/03/23 Unknown History ipratropium 0.5 mg-albuterol 3 mg 3 ml inhalation Q4H PRN PRN SOB 12/29/23 Unknown Rx (2.5 mg base)/3 mL nebulization &/OR WHEEZING #180 mL soln insulin pump cart,automated,BT #10 ea 05/31/24 Unknown Rx (Omnipod 5 G6 Pods (Gen 5) subcutaneous cartridge) denosumab 60 mg/mL subcutaneous 60 mg subcut [id number] #1 mL 06/10/24 07/28/23 19:15 Rx syringe (Prolia) clopidogrel 75 mg tablet 75 mg PO DAILY #90 tabs 07/26/24 Unknown Rx blood-glucose sensor (Dexcom G6 #3 ea 10/05/24 Unknown Rx Sensor device) gabapentin 800 mg tablet 200 mg PO BID neuropathy 10/07/24 Unknown History albuterol sulfate 90 mcg/actuation 2 puff inhalation Q6H PRN PRN 10/11/24 Unknown Rx aerosol inhaler Cough #8.5 grams fluticasone fur. 200 mcg-umeclid 1 inh inhalation DAILY #3 ea 10/13/24 Unknown Rx 62.5 mcg-vilant 25 mcg inhalat.powder (Trelegy Ellipta) nitroglycerin 0.4 mg sublingual 0.4 mg sublingual Q5-15M PRN chest 10/21/24 Unknown Rx tablet pain #25 tabs insulin lispro 100 unit/mL 60 unit (0.6 mL) continuous 10/25/24 Unknown Rx subcutaneous solution (Humalog subcutaneous infusion .continuous U-100 Insulin) #54 mL lisinopril 2.5 mg tablet 2.5 mg PO BID 11/04/24 Unknown History metoprolol tartrate 50 mg tablet 50 mg PO BID #180 tabs 11/11/24 Unknown Rx blood-glucose transmitter (Dexcom #2 ea 11/15/24 Unknown Rx G6 Transmitter device) amlodipine 10 mg tablet (Norvasc) 10 mg PO DAILY 30 days #30 tabs 11/20/24 Unknown Rx roflumilast 500 mcg tablet 500 mcg PO DAILY #30 tabs 12/03/24 Unknown Rx (Daliresp) buspirone 7.5 mg tablet 7.5 mg PO DAILY 12/14/24 Unknown History sevelamer carbonate 800 mg tablet 800 mg PO TID 12/14/24 Unknown History Allergy/AdvReac Type Severity Reaction Status Date / Time No Known Allergies Allergy Verified 12/14/24 13:00 Family History Mother Heart disease COPD (chronic obstructive pulmonary disease) Lupus Daughter Growth disorder Down syndrome Fibromyalgia Grandfather Colon cancer Diabetes Grandmother Heart disease CVA (cerebral vascular accident) Diabetes Pulmonary disease Sister Hypertension Kidney disease Surgical History (Updated 12/14/24 @ 13:24 by Regina Harrison) Hx of surgical procedure History of cardiac catheterization History of coronary artery stent placement Hx of surgical procedure H/O: Hx of appendectomy H/O: hysterectomy History of coronary artery stent placement (02/04/18) Social History housing: house pets and animals: Yes pets and animals: cat(s) Smoking Status: Former smoker how long ago did patient quit smoking: Since 05/2024 cut back and has only had ~ 10 cigarettes since then. quit status: considering quitting alcohol intake: never substance use type: does not use caffeine: Yes Type: carbonated beverages Number of servings: 4 what type of physical activity do you participate in: none seatbelt use: always do you feel safe at home: Yes Audit: Pertinent Findings Pertinent Findings EKG Perinent findings: November 20, 2024. Normal sinus rhythm. Left axis deviation. Septal infarct age undetermined. Stress test pertinent findings: February 27, 2023. Ejection fraction 78%. No areas of reversibility to suggest ischemia. And no previous infarct is noted. Echo (EF%) pertinent findings: August 28, 2020. Ejection fraction 75%. Right ventricular systolic pressure is 50 mmHg. No aortic stenosis is noted. Consult pertinent findings: May 05, 2024. Du ARGUETA. 1. Atherosclerosis of coronary artery without angina-patient has a history of coronary artery disease with stent placement in 2017. Most recent stress test in 2022 was negative for ischemia. She appears stable at this time with no recent symptoms or events. Continue current medical therapy. 2. [id number] at this time. 3. Dyspnea on exertion. Last echo was in 2019. Will repeat echo. Recommendation Anesthesia Recommendation Anesthesia recommendation: F/U recommended (Last cardiology consult in May 2024 recommended echocardiogram to evaluate dyspnea on exertion. This test does not seem to be done.)
--- NOTE | 2024-12-15 12:26 | PAT.ANE_ITS ---
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 When Was Last Pacemaker Check QUESTION #4 FULL TEXT: You/Your Family Experience fever (hyperthermia) with Anesthesia Last Oral Intake Last Oral intake: Last Oral Intake NPO since Meds taken in AM with sips of water? Meds patient instructed to take am of surgery PONV PONV - ordnance mechanic: PONV - ordnance mechanic Female Yes 12/14/24 13:25 HX of Motion Sickness No 12/14/24 13:25 HX of N/V After Surgery No 12/14/24 13:25 Non-Smoker No 12/14/24 13:25 Duration of Surgery greater Yes 12/14/24 13:25 than 60 minutes Number of Risk Factors 2 12/14/24 13:25 PONV Score Moderate Risk 12/14/24 13:25 Height & Weight Height & Weight: Anesthesia: Height & Weight Height 5 ft 6 in 11/20/24 18:44 Respiratory Assessment Respiratory Assessment - ordnance mechanic: Respiratory Tract Infection Hx - ordnance mechanic Hx Respiratory Tract Infection No 12/14/24 13:25 STOP Sleep Apnea STOP Sleep Apnea - ordnance mechanic: STOP Sleep Apnea - ordnance mechanic Hx Hypertension Yes: CONTROLLED ON MED 12/14/24 13:25 Hx Sleep Apnea No 12/14/24 13:25 CPAP No 12/14/24 13:25 BIPAP No 12/14/24 13:25 Do you snore loudly (louder No 12/14/24 13:25 than talking or can be heard Do you often feel tired/ No 12/14/24 13:25 fatigued/ sleepy during daytime? Has anyone observed you stop No 12/14/24 13:25 breathing during sleep? STOP Results Negative 12/14/24 13:25 QUESTION #5 FULL TEXT : Do you snore loudly (louder than talking or can be heard through closed doors)? 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 Specify any problems Hx of Preganancy in last 3 No 12/14/24 13:25 Months Nurse Filling Out Transfusion VCHRISTIN 12/14/24 13:25 & Questions: Date: 12/14/24 12/14/24 13:25 Time: 13:26 12/14/24 13:25 Patient unable to answer at this time (ie. confused, unrespo /Reproduction History /Reproductive History - ordnance mechanic: /Reproductive Hx- ordnance mechanic Hx Now Gestational Age (in weeks): EDC: Hx Hx Para Hx Section SAB PFSH Medical History (Updated 12/14/24 @ 13:27 by Regina Harrison) On home oxygen therapy Wears hearing aid Wears glasses Post-menopausal Insulin dependent diabetes mellitus Diabetes History of renal dialysis History of renal disease Anemia High cholesterol Easy bruising Excessive bleeding Injury of head and neck Former smoker Emphysema, unspecified History of edema History of echocardiogram History of stress test Cardiology follow-up encounter Osteoporosis Presence of insulin pump Severely underweight adult Lung nodule, multiple Nicotine abuse Lung nodule, solitary Fissure in skin of foot Alexis's sign present Tobacco abuse CKD (chronic kidney disease) stage 4, GFR 15-29 ml/min Body mass index (BMI) less than 16.5 Underweight Polyneuropathy due to type 1 diabetes mellitus Stage 4 chronic kidney disease due to type 1 diabetes mellitus Respiratory failure with hypoxia Smoking greater than 30 pack years Anemia Diabetic nephropathy, type I Hyperkalemia Renal insufficiency Diabetes Chronic obstructive pulmonary disease Essential (primary) hypertension Hypersomnia Anxiety Depression Atherosclerosis of coronary artery of [place] heart without angina pectoris NSTEMI (non-ST elevated myocardial infarction) (01/12/18) DM type 1 (diabetes mellitus, type 1) Hyperlipidemia COPD (chronic obstructive pulmonary disease) Home Medications ?Medication ?Instructions ?Recorded ?Last Taken ?Type simvastatin 40 mg tablet 40 mg PO QHS cholesterol 07/23/24 20:00 History albuterol sulfate 2.5 mg/3 mL 2.5 mg (3 mL) inhalation Q2H PRN 06/23/18 Unknown Rx (0.083 %) solution for nebulization PRN dyspnea, [place] ing ##1 aspirin 81 mg tablet,delayed 81 mg PO DAILY heart heal th 12/31/19 07/23/24 20:00 History release pen needle, diabetic 32 gauge x ##1 08/29/20 Unknown R x flash glucose scanning reader #1 ea 11/20/20 Unknown R x (FreeStyle Eileen 2 [place]) blood sugar diagnostic (FreeStyle #25 ea 08/26/23 Unkn own Rx Precision Jeff Strips) FreeStyle Eileen 2 Sensor (flash #6 ea 08/27/23 Unknown Rx glucose sensor) oxygen See Rx Instructions NASAL .C OMPLEX 12/03/23 Unknown History ipratropium 0.5 mg-albuterol 3 mg 3 ml inhalation Q4H PRN PRN SOB 12/29/23 Unknown Rx (2.5 mg base)/3 mL nebulization &/OR WHEEZING #180 mL soln insulin pump cart,automated,BT #10 ea 05/31/24 Unknown Rx (Omnipod 5 G6 Pods (Gen 5) subcutaneous cartridge) denosumab 60 mg/mL subcutaneous 60 mg subcut [id number] #1 mL 06/10/24 07/28/23 19:15 Rx syringe (Prolia) clopidogrel 75 mg tablet 75 mg PO DAILY #90 tabs 07/05 01/24 Unknown Rx blood-glucose sensor (Dexcom G6 #3 ea 10/05/24 Unknown Rx Sensor device) gabapentin 800 mg tablet 200 mg PO BID neuropathy 03/26 Unknown History albuterol sulfate 90 mcg/actuation 2 puff inhalation Q 6H PRN PRN 10/11/24 Unknown Rx aerosol inhaler Cough #8.5 grams fluticasone fur. 200 mcg-umeclid 1 inh inhalation HAJA Y #3 ea 10/13/24 Unknown Rx 62.5 mcg-vilant 25 mcg inhalat.powder (Trelegy Ellipta) nitroglycerin 0.4 mg sublingual 0.4 mg sublingual Q5-1 5M PRN chest 10/21/24 Unknown Rx tablet pain #25 tabs insulin lispro 100 unit/mL 60 unit (0.6 mL) continuous 10/25/24 Unknown Rx subcutaneous solution (Humalog subcutaneous infusion . continuous U-100 Insulin) #54 mL lisinopril 2.5 mg tablet 2.5 mg PO BID 11/04/24 Unkno wn History metoprolol tartrate 50 mg tablet 50 mg PO BID #180 tab s 11/11/24 Unknown Rx blood-glucose transmitter (Dexcom #2 ea 11/15/24 Unkno wn Rx G6 Transmitter device) amlodipine 10 mg tablet (Norvasc) 10 mg PO DAILY 30 da ys #30 tabs 11/20/24 Unknown Rx roflumilast 500 mcg tablet 500 mcg PO DAILY #30 tabs 0 12/03/24 Unknown Rx (Daliresp) buspirone 7.5 mg tablet 7.5 mg PO DAILY 12/14/24 Unk nown History sevelamer carbonate 800 mg tablet 800 mg PO TID Unknown History Allergy/AdvReac Type Severity Reaction Status Date / Time No Known Allergies Allergy Verified 12/14/24 13:00 Family History Mother Heart disease COPD (chronic obstructive pulmonary disease) Lupus Daughter Growth disorder Down syndrome Fibromyalgia Grandfather Colon cancer Diabetes Grandmother Heart disease CVA (cerebral vascular accident) Diabetes Pulmonary disease Sister Hypertension Kidney disease Surgical History (Updated 12/14/24 @ 13:24 by Regina Harrison) Hx of surgical procedure History of cardiac catheterization History of coronary artery stent placement Hx of surgical procedure H/O: Hx of appendectomy H/O: hysterectomy History of coronary artery stent placement (02/04/18) Social History housing: house pets and animals: Yes pets and animals: cat(s) Smoking Status: Former smoker how long ago did patient quit smoking: Since 05/2024 cut back and has only had ~ 10 cigarettes since then. quit status: considering quitting alcohol intake: never substance use type: does not use caffeine: Yes Type: carbonated beverages Number of servings: 4 what type of physical activity do you participate in: none seatbelt use: always do you feel safe at home: Yes Audit: Pertinent Findings HISTORY of Pertinent Findings History of Pertinent Findings: EKG Pertinent Findings EKG Perinent findings November 20, 2024. Normal 12/14/24 19:16 sinus rhythm. Left axis deviation. Septal infarct age undetermined. Stress Test Pertinent Findings Stress test pertinent findings February 27, 2023. Ejection 12/14/24 19:16 fraction 78%. No areas of reversibility to suggest ischemia. And no previous infarct is noted. Echo Pertinent Findings Echo (EF%) pertinent findings August 28, 2020. Ejection 12/14/24 19:16 fraction 75%. Right ventricular systolic pressure is 50 mmHg. No aortic stenosis is noted. Consult Pertinent Findings Consult pertinent findings May 05, 2024. Du ARGUETA. 12/14/24 19:16 1. Atherosclerosis of coronary artery without angina-patient has a history of coronary artery disease with stent placement in 2017 . Most recent stress test in 2022 was negative for ischemia. She appears stable at this time with no recent symptoms or events. Continue current medical therapy. 2. Hypertension-well- controlled at this time. 3. Dyspnea on exertion. Last echo was in 2019. Will repeat echo. Pertinent Findings Pulmonary function results/spirometer pertinent findings: Chest x-ray 11/20/2024 no acute findings in the chest Recommendation Anesthesia Recommendation Anesthesia recommendation: OPTIMIZED for anesthesia
--- NOTE | 2024-12-20 08:52 | PAT.ANESEVAL ---
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 When Was Last Pacemaker Check QUESTION #4 FULL TEXT: You/Your Family Experience fever (hyperthermia) with Anesthesia Last Oral Intake Last Oral intake: Last Oral Intake NPO since Meds taken in AM with sips of water? Meds patient instructed to take am of surgery PONV PONV - lead data entry operator: PONV - lead data entry operator Female Yes 12/14/24 13:25 HX of Motion Sickness No 12/14/24 13:25 HX of N/V After Surgery No 12/14/24 13:25 Non-Smoker No 12/14/24 13:25 Duration of Surgery greater Yes 12/14/24 13:25 than 60 minutes Number of Risk Factors 2 12/14/24 13:25 PONV Score Moderate Risk 12/14/24 13:25 Height & Weight Height & Weight: Anesthesia: Height & Weight Height 5 ft 6 in 11/20/24 18:44 Respiratory Assessment Respiratory Assessment - lead data entry operator: Respiratory Tract Infection Hx - lead data entry operator Hx Respiratory Tract Infection No 12/14/24 13:25 STOP Sleep Apnea STOP Sleep Apnea - lead data entry operator: STOP Sleep Apnea - lead data entry operator Hx Hypertension Yes: CONTROLLED ON MED 12/14/24 13:25 Hx Sleep Apnea No 12/14/24 13:25 CPAP No 12/14/24 13:25 BIPAP No 12/14/24 13:25 Do you snore loudly (louder No 12/14/24 13:25 than talking or can be heard Do you often feel tired/ No 12/14/24 13:25 fatigued/ sleepy during daytime? Has anyone observed you stop No 12/14/24 13:25 breathing during sleep? STOP Results Negative 12/14/24 13:25 QUESTION #5 FULL TEXT : Do you snore loudly (louder than talking or can be heard through closed doors)? 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 Specify any problems Hx of Preganancy in last 3 No 12/14/24 13:25 Months Nurse Filling Out Transfusion VCHRISTIN 12/14/24 13:25 & Questions: Date: 12/14/24 12/14/24 13:25 Time: 13:26 12/14/24 13:25 Patient unable to answer at this time (ie. confused, unrespo /Reproduction History /Reproductive History - lead data entry operator: /Reproductive Hx- lead data entry operator Hx Now Gestational Age (in weeks): EDC: Hx Hx Para Hx Section SAB PFSH Medical History (Reviewed 12/16/24 @ 14:15 by Mynor Anthony SENIOR LOSS CONTROL SPECIALIST, SENIOR LOSS CONTROL SPECIALIST-C) On home oxygen therapy Wears hearing aid Wears glasses Post-menopausal Insulin dependent diabetes mellitus Diabetes History of renal dialysis History of renal disease Anemia High cholesterol Easy bruising Excessive bleeding Injury of head and neck Former smoker Emphysema, unspecified History of edema History of echocardiogram History of stress test Cardiology follow-up encounter Osteoporosis Presence of insulin pump Severely underweight adult Lung nodule, multiple Nicotine abuse Lung nodule, solitary Fissure in skin of foot [place]'s sign present Tobacco abuse CKD (chronic kidney disease) stage 4, GFR 15-29 ml/min Body mass index (BMI) less than 16.5 Underweight Polyneuropathy due to type 1 diabetes mellitus Stage 4 chronic kidney disease due to type 1 diabetes mellitus Respiratory failure with hypoxia Smoking greater than 30 pack years Anemia Diabetic nephropathy, type I Hyperkalemia Renal insufficiency Diabetes Chronic obstructive pulmonary disease Essential (primary) hypertension Hypersomnia Anxiety Depression Atherosclerosis of coronary artery of [place] heart without angina pectoris NSTEMI (non-ST elevated myocardial infarction) (01/12/18) DM type 1 (diabetes mellitus, type 1) Hyperlipidemia COPD (chronic obstructive pulmonary disease) Home Medications ?Medication ?Instructions ?Recorded ?Last Taken ?Type simvastatin 40 mg tablet 40 mg PO QHS cholesterol 06/21/18 07/23/24 20:00 History albuterol sulfate 2.5 mg/3 mL 2.5 mg (3 mL) inhalation Q2H PRN 06/23/18 Unknown Rx (0.083 %) solution for nebulization PRN dyspnea, wheezing ##1 aspirin 81 mg tablet,delayed 81 mg PO DAILY heart health 12/31/19 07/23/24 20:00 History release pen needle, diabetic 32 gauge x ##1 08/29/20 Unknown Rx flash glucose scanning reader #1 ea 11/20/20 Unknown Rx (FreeStyle Eileen 2 [place]) blood sugar diagnostic (FreeStyle #25 ea 08/26/23 Unknown Rx Precision Jeff Strips) FreeStyle Eileen 2 Sensor (flash #6 ea 08/27/23 Unknown Rx glucose sensor) oxygen See Rx Instructions NASAL .COMPLEX 12/03/23 Unknown History ipratropium 0.5 mg-albuterol 3 mg 3 ml inhalation Q4H PRN PRN SOB 12/29/23 Unknown Rx (2.5 mg base)/3 mL nebulization &/OR WHEEZING #180 mL soln insulin pump cart,automated,BT #10 ea 05/31/24 Unknown Rx (Omnipod 5 G6 Pods (Gen 5) subcutaneous cartridge) denosumab 60 mg/mL subcutaneous 60 mg subcut [id number] #1 mL 06/10/24 07/28/23 19:15 Rx syringe (Prolia) clopidogrel 75 mg tablet 75 mg PO DAILY #90 tabs 07/26/24 Unknown Rx blood-glucose sensor (Dexcom G6 #3 ea 10/05/24 Unknown Rx Sensor device) gabapentin 800 mg tablet 200 mg PO BID neuropathy 10/07/24 Unknown History albuterol sulfate 90 mcg/actuation 2 puff inhalation Q6H PRN PRN 10/11/24 Unknown Rx aerosol inhaler Cough #8.5 grams fluticasone fur. 200 mcg-umeclid 1 inh inhalation DAILY #3 ea 10/13/24 Unknown Rx 62.5 mcg-vilant 25 mcg inhalat.powder (Trelegy Ellipta) nitroglycerin 0.4 mg sublingual 0.4 mg sublingual Q5-15M PRN chest 10/21/24 Unknown Rx tablet pain #25 tabs insulin lispro 100 unit/mL 60 unit (0.6 mL) continuous 10/25/24 Unknown Rx subcutaneous solution (Humalog subcutaneous infusion .continuous U-100 Insulin) #54 mL lisinopril 2.5 mg tablet 2.5 mg PO BID 11/04/24 Unknown History metoprolol tartrate 50 mg tablet 50 mg PO BID #180 tabs 11/11/24 Unknown Rx blood-glucose transmitter (Dexcom #2 ea 11/15/24 Unknown Rx G6 Transmitter device) amlodipine 10 mg tablet (Norvasc) 10 mg PO DAILY 30 days #30 tabs 11/20/24 Unknown Rx roflumilast 500 mcg tablet 500 mcg PO DAILY #30 tabs 12/03/24 Unknown Rx (Daliresp) buspirone 7.5 mg tablet 7.5 mg PO DAILY 12/14/24 Unknown History sevelamer carbonate 800 mg tablet 800 mg PO TID 12/14/24 Unknown History hydralazine 25 mg tablet 25 mg PO TID 30 days #90 tabs 12/16/24 Unknown Rx potassium gluconate 500 mg (83 mg) 500 mg PO TID 12/16/24 Unknown History tablet Allergy/AdvReac Type Severity Reaction Status Date / Time No Known Allergies Allergy Verified 12/16/24 13:53 Family History Mother Heart disease COPD (chronic obstructive pulmonary disease) Lupus Daughter Growth disorder Down syndrome Fibromyalgia Grandfather Colon cancer Diabetes Grandmother Heart disease CVA (cerebral vascular accident) Diabetes Pulmonary disease Sister Hypertension Kidney disease Surgical History Hx of surgical procedure History of cardiac catheterization History of coronary artery stent placement Hx of surgical procedure H/O: Hx of appendectomy H/O: hysterectomy History of coronary artery stent placement (02/04/18) Social History (Reviewed 12/16/24 @ 14:15 by Mynor Anthony SENIOR LOSS CONTROL SPECIALIST, SENIOR LOSS CONTROL SPECIALIST-C) housing: house pets and animals: Yes pets and animals: cat(s) Smoking Status: Former smoker how long ago did patient quit smoking: Since 05/2024 cut back and has only had ~ 10 cigarettes since then. quit status: considering quitting alcohol intake: never substance use type: does not use caffeine: Yes Type: carbonated beverages Number of servings: 4 what type of physical activity do you participate in: none seatbelt use: always do you feel safe at home: Yes Audit: Pertinent Findings HISTORY of Pertinent Findings History of Pertinent Findings: EKG Pertinent Findings EKG Perinent findings November 20, 2024. Normal 12/14/24 19:16 sinus rhythm. Left axis deviation. Septal infarct age undetermined. Stress Test Pertinent Findings Stress test pertinent findings February 27, 2023. Ejection 12/14/24 19:16 fraction 78%. No areas of reversibility to suggest ischemia. And no previous infarct is noted. Echo Pertinent Findings Echo (EF%) pertinent findings August 28, 2020. Ejection 12/14/24 19:16 fraction 75%. Right ventricular systolic pressure is 50 mmHg. No aortic stenosis is noted. Consult Pertinent Findings Consult pertinent findings May 05, 2024. Du ARGUETA. 12/14/24 19:16 1. Atherosclerosis of coronary artery without angina-patient has a history of coronary artery disease with stent placement in 2017 . Most recent stress test in 2022 was negative for ischemia. She appears stable at this time with no recent symptoms or events. Continue current medical therapy. 2. Hypertension-well- controlled at this time. 3. Dyspnea on exertion. Last echo was in 2019. Will repeat echo. Pulmonary Function Pertinent Findings Pulmonary function results/ Chest x-ray 11/20/2024 no 12/15/24 12:28 spirometer pertinent findings acute findings in the chest Pertinent Findings Echo (EF%) pertinent findings: 12/17/2024 EF 60% no evidence for diastolic dysfunction Recommendation Anesthesia Recommendation Anesthesia recommendation: OPTIMIZED for anesthesia
[2024-12-25 09:55] LABS: Hematocrit 33.1 % (37-47); Hemoglobin 10.6 g/dL (12.0-15.0); Mean Corpuscular Hgb 30.1 pg (27.0-32.0); Mean Platelet Vol. 9.4 fl (6.2-12.0); Platelet Count 220 K/mm3 (150-450); RBC Distribution Width CV 12.4 % (11.6-14.6); RBC Distribution Width SD 42.8 fl (35.1-43.9); Red Blood Count 3.52 M/mm3 (4.2-5.4); White Blood Count 7.7 K/mm3 (4.4-11.0)
[2024-12-25 10:24] LABS: Anion Gap 3 (5-15); BUN 22 mg/dL (7-18); BUN/Creat Ratio 6.9 RATIO (10-20); Chloride 96 mmol/L (98-107); Creatinine, Serum 3.19 mg/dL (0.55-1.02); EST Glomerular Filtration Rate 16 mL/min (>60); Est Glom Filt Rate - Afr Amer 19 mL/min (>60); Glucose 212 mg/dL (74-106); Sodium Level 134 mmol/L (136-145)
[2024-12-28] VITALS (9 sets, daily range): BP systolic 118–151; BP diastolic 51–64; PULSE 61–63; RESP 16–17; TEMP 36.3–36.5; O2SAT 92–100; BMI 17.8
--- NOTE | 2024-12-28 10:35 | PCM.PRE.AN2 ---
ASA Classification* ASA Classification ASA Classification: 3 Assessment & Plan Anesthesia* Anesthesia Assessment Anesthesia Assessment: Discussed sedation and/or anesthesia options, risks, benefits, and alternatives with patient/parents/legal guardian/POA. Questions invited. The patient/parents/legal guardian/POA seems to understand and agrees to proceed with anesthesia plan. Reviewed the physical assessment, medical history, allergy history and patient home medications list prior to surgery/procedure/anesthetic and documented any changes. Performed airway and anesthesia risk assessments. Anesthesia Type Anesthesia Type: MAC History Source History Obtained from:: Patient and Chart Anesthesia Focused Assessment* Temperature: 97.7 F Pulse Rate: 62 Blood Pressure: 151/64 Respiratory Rate: 17 Pulse Ox: 99 Oxygen Delivery Method: Nasal Cannula Oxygen Flow Rate (L/min): 3 Airway Assessment Mouth opens: >3 cm Mallampati Score: II Teeth Condition: Chipped/Broken (Several broken teeth on left side) and Missing (Patient has several missing teeth. Rest of the teeth are tight.) Neck Range of motion (ROM): Limited ROM (Somewhat decreased extension) Focused Labs Anesthesia Preop lab: CBC WBC 7.7 K/mm3 (4.4-11.0) 12/25/24 09:37 12/25/24 RBC 3.52 M/mm3 (4.2-5.4) L 12/25/24 09:37 12/25/24 Hgb 10.6 g/dL (12.0-15.0) L 12/25/24 09:37 12/25/24 Hct 33.1 % (37-47) L 12/25/24 09:37 12/25/24 Plt Count 220 K/mm3 (150-450) 12/25/24 09:37 12/25/24 CHEMISTRY Potassium 4.0 mmol/L (3.5-5.1) 12/25/24 09:37 12/25/24 Sodium 134 mmol/L (136-145) L 12/25/24 09:37 12/25/24 Magnesium 1.6 mg/dL (1.6-2.6) 07/23/24 22:23 07/23/24 Phosphorus 7.0 mg/dL (2.5-4.9) H 07/26/24 02:33 07/26/24 BUN 22 mg/dL (7-18) H 12/25/24 09:37 12/25/24 Creatinine 3.19 mg/dL (0.55-1.02) H 12/25/24 09:37 12/25/24 Glucose 212 mg/dL (74-106) H 12/25/24 09:37 12/25/24 POC Glucose 135 mg/dL (74-106) H 12/28/24 10:16 12/28/24 TSH 2.34 uIU/mL (0.358-3.74) 01/15/24 09:34 01/15/24 COAG PT 15.7 SECONDS (11.7-14.9) H 07/26/24 04:37 07/26/24 Pre-Assessment Diagnosis/Proposed Procedure Planned Operative Procedure(s): (R) right arm Arteriovenous Fistula,Creation Anesthesia History 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 When Was Last Pacemaker Check QUESTION #4 FULL TEXT: You/Your Family Experience fever (hyperthermia) with Anesthesia Last Oral Intake Last Oral intake: Last Oral Intake NPO since 06:30 12/28/24 10:12 Meds taken in AM with sips of No 12/28/24 10:12 water? 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 - entry level business analyst Female Yes 12/14/24 13:25 HX of Motion Sickness No 12/14/24 13:25 HX of N/V After Surgery No 12/14/24 13:25 Non-Smoker No 12/14/24 13:25 Duration of Surgery greater Yes 12/14/24 13:25 than 60 minutes Number of Risk Factors 2 12/14/24 13:25 PONV Score Moderate Risk 12/14/24 13:25 Height & Weight Height & Weight: Anesthesia: Height & Weight Height 5 ft 6 in 12/28/24 10:12 Weight: 50 kg 12/28/24 10:12 Body Mass Index (BMI) 17.8 12/28/24 10:12 Respiratory Assessment Respiratory Assessment - entry level business analyst: Respiratory Tract Infection Hx - entry level business analyst Hx Respiratory Tract Infection No 12/16/24 16:43 STOP Sleep Apnea STOP Sleep Apnea - entry level business analyst: STOP Sleep Apnea - entry level business analyst Hx Hypertension Yes: CONTROLLED ON MED 12/16/24 16:43 Hx Sleep Apnea No 12/16/24 16:43 CPAP No 12/16/24 16:43 BIPAP No 12/16/24 16:43 Do you snore loudly (louder No 12/14/24 13:25 than talking or can be heard Do you often feel tired/ No 12/14/24 13:25 fatigued/ sleepy during daytime? Has anyone observed you stop No 12/14/24 13:25 breathing during sleep? STOP Results Negative 12/14/24 13:25 QUESTION #5 FULL TEXT : Do you snore loudly (louder than talking or can be heard through closed doors)? 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 Specify any problems Hx of Preganancy in last 3 No 12/14/24 13:25 Months Nurse Filling Out Transfusion VCHRISTIN 12/14/24 13:25 & Questions: Date: 12/14/24 12/14/24 13:25 Time: 13:12/14/24 13:25 Patient unable to answer at this time (ie. confused, unrespo /Reproduction History /Reproductive History - entry level business analyst: /Reproductive Hx- entry level business analyst Hx Now Gestational Age (in weeks): EDC: Hx Hx Para Hx Section SAB Active Medications Active Medications: Current Medications Generic Name Dose Route Start Last Admin Trade Name Freq PRN Reason Stop Dose Admin Cefazolin Sodium 2 gm/ N/A 20 mls @ 400 mls/hr 12/28/24 11:30 IV 12/28/24 11:32 PREOP ONE PFSH Medical History On home oxygen therapy Wears hearing aid Wears glasses Post-menopausal Insulin dependent diabetes mellitus Diabetes History of renal dialysis History of renal disease Anemia High cholesterol Easy bruising Excessive bleeding Injury of head and neck Former smoker Emphysema, unspecified History of edema History of echocardiogram History of stress test Cardiology follow-up encounter Osteoporosis Presence of insulin pump Severely underweight adult Lung nodule, multiple Nicotine abuse Lung nodule, solitary Fissure in skin of foot [place]'s sign present Tobacco abuse CKD (chronic kidney disease) stage 4, GFR 15-29 ml/min Body mass index (BMI) less than 16.5 Underweight Polyneuropathy due to type 1 diabetes mellitus Stage 4 chronic kidney disease due to type 1 diabetes mellitus Respiratory failure with hypoxia Smoking greater than 30 pack years Anemia Diabetic nephropathy, type I Hyperkalemia Renal insufficiency Diabetes Chronic obstructive pulmonary disease Essential (primary) hypertension Hypersomnia Anxiety Depression Atherosclerosis of coronary artery of [place] heart without angina pectoris NSTEMI (non-ST elevated myocardial infarction) (01/12/18) DM type 1 (diabetes mellitus, type 1) Hyperlipidemia COPD (chronic obstructive pulmonary disease) Home Medications ?Medication ?Instructions ?Recorded ?Last Taken ?Type simvastatin 40 mg tablet 40 mg PO QHS cholesterol 06/21/18 12/27/24 History albuterol sulfate 2.5 mg/3 mL 2.5 mg (3 mL) inhalation Q2H PRN 06/23/18 Unknown Rx (0.083 %) solution for nebulization PRN dyspnea, wheezing ##1 aspirin 81 mg tablet,delayed 81 mg PO DAILY heart health 12/31/19 12/27/24 History release pen needle, diabetic 32 gauge x ##1 08/29/20 Unknown Rx flash glucose scanning reader #1 ea 01/18/21 Unknown Rx (FreeStyle Eileen 2 [place]) blood sugar diagnostic (FreeStyle #25 ea 08/26/23 Unknown Rx Precision Jeff Strips) FreeStyle Eileen 2 Sensor (flash #6 ea 08/27/23 Unknown Rx glucose sensor) oxygen See Rx Instructions NASAL .COMPLEX 12/03/23 Unknown History ipratropium 0.5 mg-albuterol 3 mg 3 ml inhalation Q4H PRN PRN SOB 12/29/23 Unknown Rx (2.5 mg base)/3 mL nebulization &/OR WHEEZING #180 mL soln insulin pump cart,automated,BT #10 ea 05/31/24 Unknown Rx (Omnipod 5 G6 Pods (Gen 5) subcutaneous cartridge) denosumab 60 mg/mL subcutaneous 60 mg subcut [id number] #1 mL 06/10/24 07/28/23 19:15 Rx syringe (Prolia) clopidogrel 75 mg tablet 75 mg PO DAILY #90 tabs 07/26/24 12/27/24 Rx blood-glucose sensor (Dexcom G6 #3 ea 10/05/24 Unknown Rx Sensor device) gabapentin 800 mg tablet 200 mg PO BID neuropathy 10/07/24 12/28/24 History albuterol sulfate 90 mcg/actuation 2 puff inhalation Q6H PRN PRN 10/11/24 12/28/24 Rx aerosol inhaler Cough #8.5 grams fluticasone fur. 200 mcg-umeclid 1 inh inhalation DAILY #3 ea 10/13/24 12/28/24 Rx 62.5 mcg-vilant 25 mcg inhalat.powder (Trelegy Ellipta) nitroglycerin 0.4 mg sublingual 0.4 mg sublingual Q5-15M PRN chest 10/21/24 Unknown Rx tablet pain #25 tabs insulin lispro 100 unit/mL 60 unit (0.6 mL) continuous 10/25/24 Unknown Rx subcutaneous solution (Humalog subcutaneous infusion .continuous U-100 Insulin) #54 mL lisinopril 2.5 mg tablet 2.5 mg PO BID 11/04/24 12/27/24 History metoprolol tartrate 50 mg tablet 50 mg PO BID #180 tabs 11/11/24 12/28/24 Rx blood-glucose transmitter (Dexcom #2 ea 11/15/24 Unknown Rx G6 Transmitter device) amlodipine 10 mg tablet (Norvasc) 10 mg PO DAILY 30 days #30 tabs 11/20/24 12/27/24 Rx roflumilast 500 mcg tablet 500 mcg PO DAILY #30 tabs 12/03/24 12/27/24 Rx (Daliresp) buspirone 7.5 mg tablet 7.5 mg PO DAILY 12/14/24 Unknown History sevelamer carbonate 800 mg tablet 800 mg PO TID 12/14/24 12/28/24 History hydralazine 25 mg tablet 25 mg PO TID 30 days #90 tabs 12/16/24 12/28/24 Rx potassium gluconate 500 mg (83 mg) 500 mg PO TID 12/16/24 12/27/24 History tablet Allergy/AdvReac Type Severity Reaction Status Date / Time No Known Allergies Allergy Verified 12/28/24 10:08 Family History Mother Heart disease COPD (chronic obstructive pulmonary disease) Lupus Daughter Growth disorder Down syndrome Fibromyalgia Grandfather Colon cancer Diabetes Grandmother Heart disease CVA (cerebral vascular accident) Diabetes Pulmonary disease Sister Hypertension Kidney disease Surgical History Hx of surgical procedure History of cardiac catheterization History of coronary artery stent placement Hx of surgical procedure H/O: Hx of appendectomy H/O: hysterectomy History of coronary artery stent placement (02/04/18) Social History housing: house pets and animals: Yes pets and animals: cat(s) Smoking Status: Former smoker how long ago did patient quit smoking: Since 05/2024 cut back and has only had ~ 10 cigarettes since then. quit status: considering quitting alcohol intake: never substance use type: does not use caffeine: Yes Type: carbonated beverages Number of servings: 4 what type of physical activity do you participate in: none seatbelt use: always do you feel safe at home: Yes Review of Systems (Anesthesia) ROS Narrative System reviewed and no additional complaints, except as documented.
--- NOTE | 2024-12-28 11:33 | PCM.HP.BLA ---
History and Physical Allergies No Known Allergies Allergy (Verified 12/02/24 14:49) Is last menstrual period known: No Post menopausal: Yes Patient : No Have you fallen in the past year?: Yes PFSH Medical History Chronic obstructive pulmonary disease Lung nodule, multiple Osteoporosis Presence of insulin pump DM type 1 (diabetes mellitus, type 1) Severely underweight adult Nicotine abuse Lung nodule, solitary Cigarette nicotine dependence Fissure in skin of foot [place]'s sign present Tobacco abuse CKD (chronic kidney disease) stage 4, GFR 15-29 ml/min Body mass index (BMI) less than 16.5 Underweight Polyneuropathy due to type 1 diabetes mellitus Stage 4 chronic kidney disease due to type 1 diabetes mellitus Respiratory failure with hypoxia Smoking greater than 30 pack years Anemia Diabetic nephropathy, type I Hyperkalemia Renal insufficiency Diabetes Essential (primary) hypertension Hypersomnia Anxiety Depression Atherosclerosis of coronary artery of [place] heart without angina pectoris NSTEMI (non-ST elevated myocardial infarction) (01/12/18) Hyperlipidemia COPD (chronic obstructive pulmonary disease) Surgical History H/O: Hx of appendectomy H/O: hysterectomy History of coronary artery stent placement (02/04/18) Family History Mother Heart disease COPD (chronic obstructive pulmonary disease) LupusDaughter Growth disorder Down syndrome FibromyalgiaGrandfather Colon cancer DiabetesGrandmother Heart disease CVA (cerebral vascular accident) Diabetes Pulmonary diseaseSister Hypertension Kidney disease Social History housing: house pets and animals: Yes pets and animals: cat(s) Smoking Status: Current every day smoker tobacco type: e-cigarettes how long ago did patient quit smoking: Since 05/2024 cut back and has only had ~ 10 cigarettes since then. quit status: considering quitting alcohol intake: never substance use type: does not use caffeine: Yes Type: carbonated beverages Number of servings: 4 what type of physical activity do you participate in: none seatbelt use: always do you feel safe at home: Yes HPI HPI HPI: SANDY ELLIS, is a 64 F who presents to the office today for evaluation for dialysis access. She had been followed for renal decline for several years with abrupt worsening in Oct when she was ill with Covid. She has been on dialysis since that time via right IJ catheter. Prior right arm PICC, no arm or clavicle fracture/pacer/node dissection/DVT/edema. On home O2 since . ROS General General: No weight change, appetite, fatigue, colon cancer, breast cancer or weakness HEENT HEENT: No difficulty swallowing, eye injury, eye surgery, swollen glands or hoarseness Endo Endocrine: Yes diabetes mellitus; No thyroid disease, thyroid cancer, Hair loss, heat intolerance or cold intolerance Skin Skin: No rash or changing moles Musc Musculoskeletal: No back problems, arthritis, rheumatoid arthritis, gout or joint pain Cardio Cardiovascular: Yes high blood pressure and heart stent; No murmur, pacemaker, heart disease, atrial fibrillation, heart attack, palpitations, shortness of breat with exertion or chest pain Psych Psychiatric: No depression, anxiety or hearing voices Resp Respiratory: Yes shortness of breath, No sleep apnea, Yes cough, No COPD, No asthma, Yes emphysema and No wheezing Gastro Gastrointestinal: No abdominal pain, No nausea or vomiting, No diarrhea, No constipation, No blood in stool, No acid reflux, No hemorrhoids, No ulcers, No gallbladder problem and No black,tarry stools John Hematologic: No blood thinners, No blood disorders, No bleeding, Yes anemia and No blood clots Neuro Neurologic: No system reviewed and no additional complaints, except as documented, No as per HPI, No abnormal gait, No abnormal hearing, No abnormal movements, No abnormal speech, No behavioral changes, Yes burning sensations, No confusion, No convulsions, Yes disequilibrium, No dizziness, No localized weakness, No frequent falls, No headache(s), No lack of coordination, No loss of vision, No memory loss, Yes numbness, No other visual disturbances, No radicular pain, No restless legs, No sensory deficit, No syncope, Yes tingling, No tremor(s), No weakness and No other Exam Const General: cooperative, healthy appearing, comfortable, no acute distress and well developed Nutritional Appearance: well nourished Orientation: alert, awake and oriented x3 HENMT Head: normocephalic and atraumatic Ears: hearing grossly normal bilaterally Nose: external nose normal Eyes General: appearance normal, both eyes and all related structures EOM: EOM intact bilaterally Neck Neck: normal visual inspection, full ROM, no lymphadenopathy and trachea midline Thyroid: thyroid normal Lymphatic: no lymphadenopathy noted Resp Effort & Inspection: normal respiratory effort, able to speak in complete sentences, symmetric chest movement, no audible wheezes, not labored, no stridor and no use of accessory muscles Cardio Rate: regular rate Rhythm: regular rhythm Pulses: brachial pulses present and radial pulses present Skin General: no rashes or lesions noted and no erythema Wounds: no wounds Neuro Cranial Nerves: CN's II-XI intact bilaterally and EOM intact bilaterally Speech: speech normal Gait: normal gait Motor: strength 5/5 throughout Sensory Exam: no sensory deficits noted Psych Appearance: grossly normal and well kempt Mental Status: mental status grossly normal Mood: congruent mood Speech and Movement: speech and movement normal Thought Content: normal Judgment: judgment good Coding Level of Care Code Off vis,new,level 4 Diagnoses ESRD (end stage renal disease) on dialysis N18.6; Z99.2 Assessment and Plan Assessment and Plan (1) ESRD (end stage renal disease) on dialysis: Status: Chronic Plan: -right arm fistula creation
[2024-12-28 11:35] LABS: Bedside Glucose 135 mg/dL (74-106)
[2024-12-28] MEDS: Cefazolin 2 GM in Syringe IV (12:10)
[2024-12-28 12:31] LABS: Bedside Glucose 166 mg/dL (74-106)
[2024-12-28] MEDS: Bupivacaine 0.25% 30 ML Vial (12:34)
[2024-12-28] MEDS: Lidocaine 1% (20 ml mdv) 20 ML Vial (12:34)
--- NOTE | 2024-12-28 13:48 | EX.PCM.DISCH ---
Discharge Instructions Diet Discharge Diet: No restrictions Activity Lifting Restrictions: do not lift > 20 lbs with right arm for 2 weeks Additional Activity Instructions:: do not submerge incision for 2 weeks Dressing / Incision Call your doctor if your incision/area has: Sudden Increased Bleeding, Increased Pain/ Swelling, Increased Redness and Foul Smelling Discharge Call your doctor if you observe: Coldness, Increased Pain and Numbness or Tingling Remove Dressing in: 2 days Cleanse incision/area with: Soap & Water Follow Up Care Test Results: Test results from this visit will be discussed in further detail at your follow-up appointment, if applicable. Discharge Plan Admission Attending Provider: Favian Sinclair Primary Care Provider: Bird Lujan Instructions Print Language: Stateless Discharge Orders/Prescriptions Prescriptions: New oxycodone 5 mg tablet 5 mg PO Q8H PRN (Reason: pain) 1 Days Qty: 3 0RF Continued aspirin 81 mg tablet,delayed release (DR/EC) 81 mg PO DAILY (DME) FreeStyle Eileen 2 [place] Misc See Rx Instructions .ROUTE .MEDSUPPLY Qty: 1 0RF Rx Instructions: As directed gabapentin 800 mg tablet 200 mg PO BID oxygen See Rx Instructions NASAL .COMPLEX Rx Instructions: 3L NASALLY; 3 l potassium gluconate 500 mg (83 mg) tablet 500 mg PO TID hydralazine 25 mg tablet 25 mg PO TID 30 Days Qty: 90 3RF lisinopril 2.5 mg tablet 2.5 mg PO BID simvastatin 40 MG tablet 40 mg PO QHS albuterol sulfate 2.5 MG/3 ML solution for nebulization 2.5 mg INHALATION Q2H PRN PRN (Reason: dyspnea, wheezing) Qty: 1 0RF (DME) pen needle, diabetic 1 EACH needle 1 ea MC ACHS Qty: 1 0RF amlodipine [Norvasc] 10 mg tablet 10 mg PO DAILY 30 Days Qty: 30 0RF sevelamer carbonate 800 mg tablet 800 mg PO TID buspirone 7.5 mg tablet 7.5 mg PO DAILY Patient Comments: PT ONLY WANTS TO TAKE ONCE PER DAY (DME) FreeStyle Precision Jeff Strips Strip See Rx Instructions .Route Qty: 25 6RF Rx Instructions: As directed (DME) FreeStyle Eileen 2 Sensor Kit See Rx Instructions .ROUTE .MEDSUPPLY Qty: 6 1RF Rx Instructions: 1 sensor q 14 days ipratropium-albuterol 0.5 mg-3 mg(2.5 mg base)/3 mL solution for nebulization 3 ml inhalation Q4H PRN PRN (Reason: SOB &/OR WHEEZING) Qty: 180 6RF (DME) Omnipod 5 G6 Pods (Gen 5) Cartridge See Rx Instructions .Route Qty: 10 5RF Rx Instructions: 1 pod 72 hours Prolia 60 mg/mL syringe 60 mg subcut [id number] Qty: 1 1RF clopidogrel 75 mg tablet 75 mg PO DAILY Qty: 90 3RF (DME) Dexcom G6 Sensor Device See Rx Instructions .Route Qty: 3 5RF Rx Instructions: 1 sensor q 10 days albuterol sulfate 90 mcg/actuation HFA aerosol inhaler 2 puff INHALATION Q6H PRN PRN (Reason: Cough) Qty: 8.5 2RF Trelegy Ellipta 200-62.5-25 mcg blister with device 1 inh inhalation DAILY Qty: 3 0RF nitroglycerin 0.4 mg tablet, sublingual 0.4 mg SUBLINGUAL Q5-15M PRN (Reason: chest pain) Qty: 25 44RF Rx Instructions: until response; do not exceed 3 doses per episode insulin lispro [Humalog U-100 Insulin] 100 unit/mL solution 60 unit continuous subcutaneous infusion .continuous Qty: 54 1RF Rx Instructions: via insulin pump metoprolol tartrate 50 mg tablet 50 mg PO BID Qty: 180 3RF (DME) Dexcom G6 Transmitter Device See Rx Instructions .Route Qty: 2 1RF Rx Instructions: 1 transmitter q 90 days roflumilast [Daliresp] 500 mcg tablet 500 mcg PO DAILY Qty: 30 11RF Disposition Disposition (needs filled in before D/C Order can be placed): Home, Self Care
--- NOTE | 2024-12-28 13:52 | OP.PCM_ITS ---
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 Outpatient Case Manager: Candy Bernabe Tasks completed by senior court office assistant: Opening, Closing, Opening & closing and Retracting Type of Anesthesia: Local MAC, Local and MAC RN Documented Start/Stop Times: Operation Date: 12/28/24 11:30 Case Time Into Pre-Op 12/28/24 09:59 Out of Pre-Op 12/28/24 12:01 Anesthesia Start 12/28/24 12:05 Into Room 12/28/24 12:05 Procedure Start 12/28/24 12:34 Procedure End 12/28/24 13:51 Anesthesia End 12/28/24 13:55 Out of Room 12/28/24 13:55 Into Recovery 12/28/24 13:58 Out of Recovery 12/28/24 14:24 Into Phase II Recovery 12/28/24 14:25 Out of Phase II 12/28/24 15:11 Procedure Start Time: 12:35 Procedure Stop Time: 13:45 Select all DRAINS/GRAFTS/IMPLANTS that apply: None Estimated Blood Loss: 3 Specimen collected: No Description of surgery: HPI: Patient is a 64-year-old female with end-stage renal disease currently on dialysis. She had vein mapping which revealed adequate right arm cephalic vein and relatively small arterial system. She is taken now for right cephalic fistula creation with assessment of the radial and brachial artery with ultrasound in the operating room to determine which location. Description of procedure: Upon today informed consent and verification correct patient procedure site the patient was taken to the operating where she was positioned prepped and draped in usual sterile fashion. Timeouts performed and sedation administered by anesthesia. Ultrasound used to evaluate the cephalic vein throughout the forearm and upper arm as well as the radial artery at the wrist and the brachial artery at the antecubital fossa. The radial and the wrist was extremely diminutive in size and the cephalic vein at this location actually was not as generous sized as advertised. The brachial artery appeared adequate in caliber in the cephalic vein was a close proximity just distal to the antecubital crease. Skin overlying the vessels anesthetized 1% lidocaine and transverse incision was made 1 fingerbreadth distal to the antecubital crease. Bovie left cautery was dissect down through subcutaneous tissue and self-retaining retractors put in position. Further dissection was carried down to the cephalic vein which was dissected free with sharp dissection and a right angle was placed vessel loop. Next Bovie used to dissect down to level the fascia which was then incised in cruciate configuration and self-retaining retractor moved deeper in the wound. Sharp dissection was dissect free the brachial artery and what appeared to be the bifurcation into a generous sized ulnar artery and a very small radial artery. The vessel was dissected free proximal distal and a right angle used to place a vessel loop proximal on the brachial artery and distally on the ulnar artery and radial artery individually. Patient was in heparinized allowed to circulate for 3 minutes. Side branches of the vein were then ligated with silk ties and divided and the median cubital branch ligated and divided with plans to utilize this for our anastomosis. The vein was then dilated up to 3 and half millimeters and flushed with heparinized saline. The brachial artery was then occluded with Vesseloops and longitudinal arteriotomy created in the distal brachial artery and extended Villegas scissors down to the radial artery origin. The vein was then beveled to match the arteriotomy and anastomosis performed with a 6-0 Prolene in a running fashion. Prior to completing suture line the vessels are backbled after completing suture line clamps removed and satisfactory stasis was noted. There was a palpable pulse in the radial artery at the wrist and a palpable thrill in the cephalic vein up to the mid upper arm. Heparin was then versed with protamine and incision inspected for hemostasis. Surgicel topical hemostatic was applied adjacent to the anastomosis and the incision was then closed with 3-0 Vicryl, 4 Monocryl and Dermabond for the skin. Dry sterile dressing was then applied and the patient was taken the recovery room anticipated discharge to home. Surgical Findings: +radial pulse, +thrill Complications Complications: No
--- NOTE | 2024-12-28 14:00 | PCM.POST.ANE ---
Anesthesia: Postop Eval I Current Vital Signs Temperature: 97.7 F Pulse Rate: 61 Blood Pressure: 118/54 Respiratory Rate: 16 Pulse Ox: 100 Oxygen Delivery Method: Room Air Assessment Airway patent: Yes Spontaneous unlabored respirations: Yes Mental status: Awake and Calm nausea: No Vomiting: No Anesthesia Complication: No Fluid Hydration Crystalloid volume administer (ml): 200 Total IV fluid infused: 200 Progress Note Anesthesia document: Postop Eval 1 completed: Yes
--- NOTE | 2024-12-28 14:01 | PCM.POSTANE2 ---
Anesthesia Postop Eval I Sum Postop Eval Completion status Anesthesia document: Postop Eval 1 completed: Yes Anesthesia Postop Eval I Summary Anesthesia Postop Eval I Summary: Anesthesia Postop Eval I: Assessment Summary Airway patent Spontaneous unlabored respirations Mental status nausea Vomiting Anesthesia Postop Eval I: Fluid Summary Crystalloid volume administer (ml) Colloids volume administered ( ml) Blood Product volume administered (ml) Total IV fluid infused Anesthesia Postop Eval I: Summary Notes Anesthesia Complication Anesthesia Complication Comment: Post-operative progress note
[2024-12-28 14:59] LABS: Bedside Glucose 207 mg/dL (74-106)
--- NOTE | 2024-12-28 18:53 | PCM.POSTANE2 ---
Anesthesia Postop Eval I Sum Postop Eval Completion status Anesthesia document: Postop Eval 1 completed: Yes Anesthesia Postop Eval I Summary Anesthesia Postop Eval I Summary: Anesthesia Postop Eval I: Assessment Summary Airway patent Spontaneous unlabored respirations Mental status nausea Vomiting Anesthesia Postop Eval I: Fluid Summary Crystalloid volume administer (ml) Colloids volume administered ( ml) Blood Product volume administered (ml) Total IV fluid infused Anesthesia Postop Eval I: Summary Notes Anesthesia Complication Anesthesia Complication Comment: Post-operative progress note Anesthesia: Postop Eval II Evaluation Mental status: Awake and Calm Pain Level: 1 nausea: No Vomiting: No Complications Anesthesia Complication: No
== END 2024-12-28 15:11 | disposition home or self-care (01) ==
LOC: SDC 09:53 → AC 09:54
PROVIDERS: PCP Family Medicine; Referring Provider Surgery Trauma Surgery; Visit Provider Surgery Trauma Surgery
PROC: (CPT 36821; principal; 2024-12-28 11:15)
DX: I12.0 Hypertensive chronic kidney disease with stage 5 chronic kidney disease or end stage renal disease (principal); N18.6 End stage renal disease; J44.9 Chronic obstructive pulmonary disease, unspecified; E10.22 Type 1 diabetes mellitus with diabetic chronic kidney disease; E10.42 Type 1 diabetes mellitus with diabetic polyneuropathy; Z79.4 Long term (current) use of insulin; Z99.2 Dependence on renal dialysis; E78.5 Hyperlipidemia, unspecified; I25.10 Atherosclerotic heart disease of native coronary artery without angina pectoris; F17.210 Nicotine dependence, cigarettes, uncomplicated; Z95.5 Presence of coronary angioplasty implant and graft; Z99.81 Dependence on supplemental oxygen; Z79.02 Long term (current) use of antithrombotics/antiplatelets; Z79.82 Long term (current) use of aspirin; Z79.899 Other long term (current) drug therapy; Z86.16 Personal history of COVID-19
CPT/HCPCS: 36821; 36415; 80048; 82962; 85027; A4648; A4216; J2405

== ENCOUNTER 2025-01-03 21:07 | Inpatient (IN) | payer MEDICARE, OTHER, SELFPAY ==
[2025-01-03 21:08] VITALS: BP 156/59; PULSE 60; RESP 18; TEMP 36.5; O2SAT 97; BMI 20.7
[2025-01-03 21:13] VITALS: BP 156/96; PULSE 59; RESP 16; TEMP 36.5; O2SAT 96; O2SAT 98
--- NOTE | 2025-01-03 21:42 | RAD_ITS ---
PROCEDURE: CHEST PA AND LATERAL REASON FOR EXAM: Dyspnea TECHNIQUE: Frontal and lateral views of the chest. COMPARISON: Chest radiograph dated 11/20/2024 FINDINGS: Stable right-sided central line terminating within the SVC. The heart size is normal. The mediastinal contour is unremarkable. Prominent bilateral interstitial markings with left basilar effusion/infiltrates. No pneumothorax. The bones are unremarkable. RAD/Chest PA and Lateral IMPRESSION: Left basilar effusion/infiltrate. Reading Location: [facility]
[2025-01-03 21:55] LABS: Absolute Lymphocyte Count 1.39 X10^3/uL (0.83-4.51); Absolute Neutrophil Count 6.3 X10^3/uL (2.0-7.7); Basophil# 0.06 X10^3/uL; Basophil% 0.6 % (0-1); Eosinophil# 0.65 X10^3/uL; Hematocrit 31.8 % (37-47); Hemoglobin 10.1 g/dL (12.0-15.0); Lymphocyte # 1.39 X10^3/ul (0.83-4.51); Mean Corp Hgb Conc 31.8 g/dL (32-36); Mean Corpuscular Hgb 30.4 pg (27.0-32.0); Mean Corpuscular Volume 95.8 fL (81-99); Mean Platelet Vol. 9.5 fl (6.2-12.0); Monocyte# 0.81 X10^3/uL; Monocyte% 8.8 % (0-10); NRBC Flagged by Analyzer 0 % (0-5); Neutrophil % 68.2 % (47-70); Platelet Count 228 K/mm3 (150-450); RBC Distribution Width CV 12.4 % (11.6-14.6); RBC Distribution Width SD 43.1 fl (35.1-43.9); Red Blood Count 3.32 M/mm3 (4.2-5.4); White Blood Count 9.3 K/mm3 (4.4-11.0)
--- NOTE | 2025-01-03 22:03 | EX.ED.DYSGE1 ---
HPI History of Present Illness Chief Complaint: Shortness of Breath Detail of Chief Complaint: Patient presents with shortness of breath. Informant: patient Onset/Context/Timing Onset: Today Context: Gradual Onset Timing: Continuous Quality: Dyspnea, dyspnea on exertion not orthopnea Location: Respiratory Current Severity: Mild Maximum Severity: Moderate Worsened by: Activity Relieved by: Nothing Associated Symptoms Associated Symptoms: No other symptoms Narrative Narrative: Patient is a 64-year-old woman on hemodialysis Friday, Friday and Friday. She did not go to dialysis today because she felt bad. She still makes urine. Patient has chronic hypoxemic respiratory failure on 3 L by nasal cannula. She is presently on 3 L. She also has history of COPD, dyspnea on exertion, hypertension, type 1 diabetes. She has a insulin pump. Patient has stable two-pillow orthopnea. She truly does not have orthopnea she states she sleeps with 2 pillows for comfort. She states the fistula in her right upper extremity was placed 1 week ago. She has a right subclavian Vas-Cath. Patient [place] fever, chills night sweats. Patient has chronic rhinorrhea. Denies sore throat. She has a slight cough which is not abnormal for her. She denies sputum production. She denies nausea, vomiting or diarrhea. Denies abdominal pain. She denies dysuria, frequency, urgency or hematuria. Prior similar symptoms: Yes Recent Illness/Hospitalization: No PFSH PFSH Medical History On home oxygen therapy Wears hearing aid Wears glasses Post-menopausal Insulin dependent diabetes mellitus Diabetes History of renal dialysis History of renal disease Anemia High cholesterol Easy bruising Excessive bleeding Injury of head and neck Former smoker Emphysema, unspecified History of edema History of echocardiogram History of stress test Cardiology follow-up encounter Osteoporosis Presence of insulin pump Severely underweight adult Lung nodule, multiple Nicotine abuse Lung nodule, solitary Fissure in skin of foot [place]'s sign present Tobacco abuse CKD (chronic kidney disease) stage 4, GFR 15-29 ml/min Body mass index (BMI) less than 16.5 Underweight Polyneuropathy due to type 1 diabetes mellitus Stage 4 chronic kidney disease due to type 1 diabetes mellitus Respiratory failure with hypoxia Smoking greater than 30 pack years Anemia Diabetic nephropathy, type I Hyperkalemia Renal insufficiency Diabetes Chronic obstructive pulmonary disease Essential (primary) hypertension Hypersomnia Anxiety Depression Atherosclerosis of coronary artery of [place] heart without angina pectoris NSTEMI (non-ST elevated myocardial infarction) (01/12/18) DM type 1 (diabetes mellitus, type 1) Hyperlipidemia COPD (chronic obstructive pulmonary disease) Home Medications ?Medication ?Instructions ?Recorded ?Last Taken ?Type simvastatin 40 mg tablet 40 mg PO QHS cholesterol 06/21/18 12/27/24 History albuterol sulfate 2.5 mg/3 mL 2.5 mg (3 mL) inhalation Q2H PRN 06/23/18 Unknown Rx (0.083 %) solution for nebulization PRN dyspnea, wheezing ##1 aspirin 81 mg tablet,delayed 81 mg PO DAILY heart health 12/31/19 12/27/24 History release pen needle, diabetic 32 gauge x ##1 08/29/20 Unknown Rx flash glucose scanning reader #1 ea 11/20/20 Unknown Rx (FreeStyle [place]ileen 2 [place]) blood sugar diagnostic (FreeStyle #25 ea 08/26/23 Unknown Rx Precision Jeff Strips) FreeStyle Eileen 2 Sensor (flash #6 ea 08/27/23 Unknown Rx glucose sensor) oxygen See Rx Instructions NASAL .COMPLEX 12/03/23 Unknown History ipratropium 0.5 mg-albuterol 3 mg 3 ml inhalation Q4H PRN PRN SOB 12/29/23 Unknown Rx (2.5 mg base)/3 mL nebulization &/OR WHEEZING #180 mL soln insulin pump cart,automated,BT #10 ea 05/31/24 Unknown Rx (Omnipod 5 G6 Pods (Gen 5) subcutaneous cartridge) denosumab 60 mg/mL subcutaneous 60 mg subcut [id number] #1 mL 06/10/24 07/28/23 19:15 Rx syringe (Prolia) clopidogrel 75 mg tablet 75 mg PO DAILY #90 tabs 07/26/24 12/27/24 Rx blood-glucose sensor (Dexcom G6 #3 ea 10/05/24 Unknown Rx Sensor device) gabapentin 800 mg tablet 200 mg PO BID neuropathy 10/07/24 12/28/24 History nitroglycerin 0.4 mg sublingual 0.4 mg sublingual Q5-15M PRN chest 10/21/24 Unknown Rx tablet pain #25 tabs insulin lispro 100 unit/mL 60 unit (0.6 mL) continuous 10/25/24 Unknown Rx subcutaneous solution (Humalog subcutaneous infusion .continuous U-100 Insulin) #54 mL lisinopril 2.5 mg tablet 2.5 mg PO BID 11/04/24 12/27/24 History metoprolol tartrate 50 mg tablet 50 mg PO BID #180 tabs 11/11/24 12/28/24 Rx blood-glucose transmitter (Dexcom #2 ea 11/15/24 Unknown Rx G6 Transmitter device) amlodipine 10 mg tablet (Norvasc) 10 mg PO DAILY 30 days #30 tabs 11/20/24 12/27/24 Rx roflumilast 500 mcg tablet 500 mcg PO DAILY #30 tabs 12/03/24 12/27/24 Rx (Daliresp) buspirone 7.5 mg tablet 7.5 mg PO DAILY 12/14/24 Unknown History sevelamer carbonate 800 mg tablet 800 mg PO TID 12/14/24 12/28/24 History hydralazine 25 mg tablet 25 mg PO TID 30 days #90 tabs 12/16/24 12/28/24 Rx potassium gluconate 500 mg (83 mg) 500 mg PO TID 12/16/24 12/27/24 History tablet oxycodone 5 mg tablet 5 mg PO Q8H PRN pain 1 day #3 tabs 12/28/24 Unknown Rx albuterol sulfate 90 mcg/actuation 2 puff inhalation Q6H PRN PRN 12/30/24 Unknown Rx aerosol inhaler Cough #8.5 grams fluticasone fur. 200 mcg-umeclid 1 inh inhalation DAILY #3 ea 12/30/24 Unknown Rx 62.5 mcg-vilant 25 mcg inhalat.powder (Trelegy Ellipta) Allergy/AdvReac Type Severity Reaction Status Date / Time No Known Allergies Allergy Verified 01/03/25 21:13 Family History Mother Heart disease COPD (chronic obstructive pulmonary disease) Lupus Daughter Growth disorder Down syndrome Fibromyalgia Grandfather Colon cancer Diabetes Grandmother Heart disease CVA (cerebral vascular accident) Diabetes Pulmonary disease Sister Hypertension Kidney disease Surgical History Hx of surgical procedure History of cardiac catheterization History of coronary artery stent placement Hx of surgical procedure H/O: Hx of appendectomy H/O: hysterectomy History of coronary artery stent placement (02/04/18) Social History household members: spouse housing: house pets and animals: Yes pets and animals: cat(s) Smoking Status: Former smoker how long ago did patient quit smoking: Since 05/2024 cut back and has only had ~ 10 cigarettes since then. quit status: considering quitting alcohol intake: never substance use type: does not use caffeine: Yes Type: carbonated beverages Number of servings: 4 what type of physical activity do you participate in: none seatbelt use: always do you feel safe at home: Yes ROS ROS ED Constitutional Constitutional ED: Denies chills, fever(s), subjective or sweats Eyes Eyes: Denies blurry vision or change in vision ENT ENT ED: Reports rhinorrhea; Denies ear pain or sore throat Cardiovascular Cardiovascular: Denies chest pain, orthopnea, palpitations or paroxysmal nocturnal dyspnea Respiratory/Chest Respiratory/Chest: Reports dyspnea and dyspnea on exertion; Denies cough, orthopnea, paroxysmal nocturnal dyspnea or sputum Gastrointestinal Gastrointestinal: Denies abdominal pain, diarrhea, nausea or vomiting Genitourinary Genitourinary ED: Denies dysuria, hematuria or urinary frequency Musculoskeletal Musculoskeletal: Denies back pain Integumentary Denies rash Neurologic Neurologic: Denies weakness Hematologic/Lymphatic Hematologic/Lymphatic: Reports systems reviewed and no addt'l complaints, except as documented EXAM Physical Exam Const Vital Signs: 01/03/25 21:08 01/03/25 21:13 01/03/25 21:13 Temperature 97.7 F L 97.7 F L Temperature Source Oral Oral Pulse Rate 60 59 L Respiratory Rate 18 16 Respiratory Effort Normal Non-Labored Respiratory Depth Normal Respiratory Pattern Normal Blood Pressure 156/59 H 156/96 H Blood Pressure Mean 91 116 Pulse Ox 97 98 Oxygen Delivery Method Nasal Cannula Nasal Cannula Nasal Cannula Oxygen Flow Rate (L/min) 3 3 3 01/03/25 22:13 Temperature 97.8 F Temperature Source Oral Pulse Rate 56 L Respiratory Rate 15 Respiratory Effort Respiratory Depth Respiratory Pattern Blood Pressure 162/51 H Blood Pressure Mean 88 Pulse Ox 96 Oxygen Delivery Method Nasal Cannula Oxygen Flow Rate (L/min) 3 Blood pressure is elevated. She is slightly bradycardic. Positive well nourished and well developed General Appearance ED: well developed, NAD and pallor; Negative for cyanotic or diaphoretic HEENT Reports moist mucous membranes HEENT Narrative: Head is atraumatic normocephalic. Ears normal. Nares patent. Eyes PERRL and EOMs intact bilaterally General Eye ED: Yes pale conjunctiva; Negative for scleral icterus Neck no lymphadenopathy, supple and no JVD Chest Wall inspection of chest normal and palpation of chest normal Resp normal respiratory effort and clear to auscultation bilaterally Cardio regular rate, regular rhythm, S1 normal heart sound, S2 normal heart sound and no murmurs GI normal to inspection, nondistended, normoactive bowel sounds, non-tender, non-distended and no masses; Negative for hepatosplenomegaly Extremity normal to inspection General Extremety ED: Negative for edema or tenderness General Extremity: Negative for edema Neuro oriented x3 and CN's II-XII intact bilaterally Sensorium / Orientation: alert Psych mental status grossly normal Skin no rashes or lesions noted, no wounds and skin turgor normal General Skin Exam: pallor; Negative for jaundice MDM MDM MDM Narrative Medical decision making narrative: This may represent chronic dyspnea, fluid overload, pneumonia, exacerbation of lung disease. To evaluate her symptoms will obtain EKG, chest x-ray and appropriate blood work. History & Record Review Additional record(s) reviewed:: Prior inpatient record (Discharge summary authored by Dr. Favian Obrien for July 2020 for admission.), Prior outpatient record (Fistula placed by Dr. Sinclair the end of December.) and Prior ED visit (November 2024 for hypertension and acute kidney injury July 23 requiring admission) Lab Data Attestation: I reviewed the patient's lab results. Lab results narrative: Mild anemia with an H&H 10.1 and 31.8. Indices are normal. White count differential are normal. Hemoglobin 10 would not explain her shortness of breath. Electrolyte panel reveals mildly elevated potassium of 5.8. BUN is 40 with a creatinine of 4.48 which is not unexpected since she is on hemodialysis and missed her dialysis today. Glucose is elevated 158. Labs: Laboratory Results - last 24 hr 01/03/25 21:21 WBC 9.3 RBC 3.32 L Hgb 10.1 L Hct 31.8 L MCV 95.8 MCH 30.4 MCHC 31.8 L RDW Std Deviation 43.1 RDW Coeff of Iron 12.4 Plt Count 228 MPV 9.5 Immature Gran % (Auto) 0.400 Neut % (Auto) 68.2 Lymph % (Auto) 15.0 L [place] % (Auto) 8.8 Eos % (Auto) 7.0 H Baso % (Auto) 0.6 Absolute Neuts (auto) 6.3 Absolute Lymphs (auto) 1.39 Nucleated RBC % 0 Sodium 133 Potassium 5.8 H Chloride 95 L Carbon Dioxide 32.3 H Anion Gap 5 BUN 40 H Creatinine 4.48 H Estim Creat Clear Calc 11.50 L Est GFR (MDRD) Non-Af 10 L BUN/Creatinine Ratio 9.0 L Glucose 158 H Calcium 9.2 Radiography Chest X-Ray - ED: 2 View, Read by ED Physician, Heart, Mediastinum, Bony Structures, Left Infiltrate and Left Effusion (There is a small effusion noted on the left. The infiltrate and effusion are new since November 27, 2024.) Diagnostic Testing: Clinical Impression(s) from Imaging Studies Chest X-Ray 01/03/25 21:42 IMPRESSION: Left basilar effusion/infiltrate. Reading Location: [facility] EKG Initial EKG: Attestation: I personally reviewed and interpreted this EKG as follows: Interpretation: Sinus Bradycardia (Rate is 54. [place] to the left. GA interval is under 72 ms QRS duration 82 ms. QT duration 4 to 32 ms decreased anterior force. Patient has peaked T waves concerning for hyperkalemia. Potassium is elevated 5.8. Will treat with calcium gluconate, insulin and D10 per protocol. Since patient is no) Management Discussion w/another healthcare provider: Hospitalist (Case discussed with hospitalist. Patient admit PCU. He will make arrangements for dialysis.) Treatment and Re-Evaluation :: Pneumonia severity index/port score is 95. Risk classification 4 with an 8.2 to 9.3% mortality. Hospitalization is recommended. Curb 65 score is 2. Hospitalization is encouraged versus close outpatient follow-up. In light of the risk laceration of 4 for the port score and curb 65 score of 2 with a 6.8% 30-day mortality will contact hospitalist for admission. Patient was informed that admission is recommended. She is willing to be admitted. Critical Care Time Critical Care Time: Yes Critical care time (excluding procedures): 30-74 minutes (31), Including time spent: (History, physical, documentation, independent rotation of laboratories alts x-rays, treatment for pneumonia, hyperkalemia with EKG changes), Discussing w/Patient &/or Family/High School Guidance Counselor, Discussing w/Consultants and Arranging Admission or Transfer Discharge Plan Dx/Rx/DC Orders Clinical Impression: Left lower lobe pneumonia, DM type 1 (diabetes mellitus, type 1), Atherosclerosis of coronary artery of [place] without angina pectoris, Essential (primary) hypertension, Chronic obstructive pulmonary disease, End-stage renal disease on hemodialysis, Chronic hypoxemic respiratory failure, Pleural effusion on left, Parapneumonic effusion, Anemia, Acute hyperkalemia Disposition Disposition: Acute Care [facility]
[2025-01-03 22:13] VITALS: BP 162/51; PULSE 56; RESP 15; TEMP 36.6; O2SAT 96
[2025-01-03 22:31] LABS: Anion Gap 5 (5-15); BUN 40 mg/dL (4-19); Calcium,Total 9.2 mg/dL (7.6-11.0); Carbon Dioxide 32.3 mmol/L (21.0-32.0); Chloride 95 mmol/L (98-108); Creatinine, Serum 4.48 mg/dL (0.70-1.20); EST Glomerular Filtration Rate 10 (>60); Glucose 158 mg/dL (70-99); Potassium 5.8 mmol/L (3.3-5.1); Sodium Level 133 mmol/L (133-145)
[2025-01-03 23:00] VITALS: BP 156/89; PULSE 56; RESP 16; TEMP 36.6; O2SAT 98
--- NOTE | 2025-01-03 23:03 | EKG12_ITS ---
Test Reason : DYSRHYTHMIA Blood Pressure : */* mmHG Vent. Rate : 54 BPM Atrial Rate : 54 BPM P-R Int : 172 ms QRS Dur : 82 ms QT Int : 432 ms P-R-T Axes : 75 -56 81 degrees QTcB Int : 409 ms Sinus bradycardia Left axis deviation Septal infarct (cited on or before 26-Aug-2020) Abnormal ECG Confirmed by Saroj Lemos ([id number]), tape editor [place] ([id number]) on 01/04/2025 10:45:14 AM Referred By: Confirmed By: Saroj Lemos
[2025-01-03] MEDS: Piperacil/Tazobactam 3.375 GM in 0.9% Normal Saline (50mL MB+) 50 ML IV (23:29)
--- NOTE | 2025-01-03 23:33 | PCM.HP.STD ---
[facility] - General General Date of Admission: 01/03/25 Date of Service: 01/03/25 Chief Complaint: Shortness of breath HPI Narrative SANDY ELLIS, is a 64 F who presents to the emergency room with chief complaint of shortness of breath and generalized illness. Patient has significant past medical history of type 1 diabetes for which she wears an insulin pump, end-stage renal disease for which she goes to dialysis on Friday and Friday. She states 2 days ago she started feeling badly with more shortness of breath and cough which has progressed to the point where today she felt she needed to be evaluated. She felt so ill that in fact she did not want to go to her dialysis appointment today. Patient denies chest pain fevers or chills and/or nausea or vomiting. She does have shortness of breath beyond her normal and she does wear oxygen at home. Chest x-ray reveals a left lower lobar pneumonia and laboratory studies were remarkable for elevated creatinine as well as potassium for which she was receiving treatment in the emergency room with insulin and calcium gluconate. She will be admitted to general medical floor and treated for healthcare associated pneumonia. [facility] Medical History On home oxygen therapy Wears hearing aid Wears glasses Post-menopausal Insulin dependent diabetes mellitus Diabetes History of renal dialysis History of renal disease Anemia High cholesterol Easy bruising Excessive bleeding Injury of head and neck Former smoker Emphysema, unspecified History of edema History of echocardiogram History of stress test Cardiology follow-up encounter Osteoporosis Presence of insulin pump Severely underweight adult Lung nodule, multiple Nicotine abuse Lung nodule, solitary Fissure in skin of foot [place]'s sign present Tobacco abuse CKD (chronic kidney disease) stage 4, GFR 15-29 ml/min Body mass index (BMI) less than 16.5 Underweight Polyneuropathy due to type 1 diabetes mellitus Stage 4 chronic kidney disease due to type 1 diabetes mellitus Respiratory failure with hypoxia Smoking greater than 30 pack years Anemia Diabetic nephropathy, type I Hyperkalemia Renal insufficiency Diabetes Chronic obstructive pulmonary disease Essential (primary) hypertension Hypersomnia Anxiety Depression Atherosclerosis of coronary artery of [place] heart without angina pectoris NSTEMI (non-ST elevated myocardial infarction) (01/12/18) DM type 1 (diabetes mellitus, type 1) Hyperlipidemia COPD (chronic obstructive pulmonary disease) Home Medications ?Medication ?Instructions ?Recorded ?Last Taken ?Type simvastatin 40 mg tablet 40 mg PO QHS cholesterol 06/21/18 12/27/24 History albuterol sulfate 2.5 mg/3 mL 2.5 mg (3 mL) inhalation Q2H PRN 06/23/18 Unknown Rx (0.083 %) solution for nebulization PRN dyspnea, wheezing ##1 aspirin 81 mg tablet,delayed 81 mg PO DAILY heart health 12/31/19 12/27/24 History release pen needle, diabetic 32 gauge x ##1 08/29/20 Unknown Rx flash glucose scanning reader #1 ea 11/20/20 Unknown Rx (FreeStyle Eileen 2 [place]) blood sugar diagnostic (FreeStyle #25 ea 08/26/23 Unknown Rx Precision Jeff Strips) FreeStyle Eileen 2 Sensor (flash #6 ea 08/27/23 Unknown Rx glucose sensor) oxygen See Rx Instructions NASAL .COMPLEX 12/03/23 Unknown History ipratropium 0.5 mg-albuterol 3 mg 3 ml inhalation Q4H PRN PRN SOB 12/29/23 Unknown Rx (2.5 mg base)/3 mL nebulization &/OR WHEEZING #180 mL soln insulin pump cart,automated,BT #10 ea 05/31/24 Unknown Rx (Omnipod 5 G6 Pods (Gen 5) subcutaneous cartridge) denosumab 60 mg/mL subcutaneous 60 mg subcut [id number] #1 mL 06/10/24 07/28/23 19:15 Rx syringe (Prolia) clopidogrel 75 mg tablet 75 mg PO DAILY #90 tabs 07/26/24 12/27/24 Rx blood-glucose sensor (Dexcom G6 #3 ea 10/05/24 Unknown Rx Sensor device) gabapentin 800 mg tablet 200 mg PO BID neuropathy 10/07/24 12/28/24 History nitroglycerin 0.4 mg sublingual 0.4 mg sublingual Q5-15M PRN chest 10/21/24 Unknown Rx tablet pain #25 tabs insulin lispro 100 unit/mL 60 unit (0.6 mL) continuous 10/25/24 Unknown Rx subcutaneous solution (Humalog subcutaneous infusion .continuous U-100 Insulin) #54 mL lisinopril 2.5 mg tablet 2.5 mg PO BID 11/04/24 12/27/24 History metoprolol tartrate 50 mg tablet 50 mg PO BID #180 tabs 11/11/24 12/28/24 Rx blood-glucose transmitter (Dexcom #2 ea 11/15/24 Unknown Rx G6 Transmitter device) amlodipine 10 mg tablet (Norvasc) 10 mg PO DAILY 30 days #30 tabs 11/20/24 12/27/24 Rx roflumilast 500 mcg tablet 500 mcg PO DAILY #30 tabs 12/03/24 12/27/24 Rx (Daliresp) buspirone 7.5 mg tablet 7.5 mg PO DAILY 12/14/24 Unknown History sevelamer carbonate 800 mg tablet 800 mg PO TID 12/14/24 12/28/24 History hydralazine 25 mg tablet 25 mg PO TID 30 days #90 tabs 12/16/24 12/28/24 Rx potassium gluconate 500 mg (83 mg) 500 mg PO TID 12/16/24 12/27/24 History tablet oxycodone 5 mg tablet 5 mg PO Q8H PRN pain 1 day #3 tabs 12/28/24 Unknown Rx albuterol sulfate 90 mcg/actuation 2 puff inhalation Q6H PRN PRN 12/30/24 Unknown Rx aerosol inhaler Cough #8.5 grams fluticasone fur. 200 mcg-umeclid 1 inh inhalation DAILY #3 ea 12/30/24 Unknown Rx 62.5 mcg-vilant 25 mcg inhalat.powder (Trelegy Ellipta) Allergy/AdvReac Type Severity Reaction Status Date / Time No Known Allergies Allergy Verified 01/03/25 21:13 Family History Mother Heart disease COPD (chronic obstructive pulmonary disease) Lupus Daughter Growth disorder Down syndrome Fibromyalgia Grandfather Colon cancer Diabetes Grandmother Heart disease CVA (cerebral vascular accident) Diabetes Pulmonary disease Sister Hypertension Kidney disease Surgical History Hx of surgical procedure History of cardiac catheterization History of coronary artery stent placement Hx of surgical procedure H/O: Hx of appendectomy H/O: hysterectomy History of coronary artery stent placement (02/04/18) Social History household members: spouse housing: house pets and animals: Yes pets and animals: cat(s) Smoking Status: Former smoker how long ago did patient quit smoking: Since 05/2024 cut back and has only had ~ 10 cigarettes since then. quit status: considering quitting alcohol intake: never substance use type: does not use caffeine: Yes Type: carbonated beverages Number of servings: 4 what type of physical activity do you participate in: none seatbelt use: always do you feel safe at home: Yes ROS Constitutional Constitutional: Reports weakness; Denies chills or fever(s) Eyes Eyes: Denies blurry vision ENT HEENT: Denies abnormal hearing Cardiovascular Cardiovascular: Denies chest pain Respiratory/Chest Respiratory/Chest: Reports cough, shortness of breath at rest and shortness of breath with exertion Gastrointestinal Gastrointestinal: Denies abdominal pain Genitourinary Genitourinary: Denies dysuria Musculoskeletal Musculoskeletal: Denies back pain Integumentary Integumentary: Reports dry skin Neurologic Neurologic: Denies abnormal gait Vital Signs Vital Signs Vital Signs: 01/03/25 21:08 01/03/25 21:13 01/03/25 21:13 Temperature 97.7 F L 97.7 F L Temperature Source Oral Oral Pulse Rate 60 59 L Respiratory Rate 18 16 Respiratory Effort Normal Non-Labored Respiratory Depth Normal Respiratory Pattern Normal Blood Pressure 156/59 H 156/96 H Blood Pressure Mean 91 116 Pulse Ox 97 98 Oxygen Delivery Method Nasal Cannula Nasal Cannula Nasal Cannula Oxygen Flow Rate (L/min) 3 3 3 01/03/25 22:13 01/03/25 23:00 Temperature 97.8 F 98 F Temperature Source Oral Oral Pulse Rate 56 L 56 L Respiratory Rate 15 16 Respiratory Effort Respiratory Depth Respiratory Pattern Blood Pressure 162/51 H 156/89 H Blood Pressure Mean 88 111 Pulse Ox 96 98 Oxygen Delivery Method Nasal Cannula Nasal Cannula Oxygen Flow Rate (L/min) 3 2 Weight Weight: 128 lb 4.944 oz Body Mass Index (BMI) 20.7 Physical Exam Const alert and oriented x3 General Appearance: cooperative HEENT normocephalic and head/scalp atraumatic HEENT Narrative: Left TM inspected and was normal Neck no lymphadenopathy Lymph Lymphatic: no lymphadenopathy noted Resp Auscultation: wheezes expiratory wheezes Cardio regular rate, regular rhythm, S1 normal heart sound and S2 normal heart sound GI normal to inspection, nondistended, normoactive bowel sounds Extremity normal capillary refill Skin General Skin Exam: no breakdown Neuro no focal motor deficits and no sensory deficits noted Psych thought process normal Results Lab / Micro Data 01/03/25 21:21 01/03/25 21:21 Labs: Laboratory Results - last 24 hr 01/03/25 21:21: WBC 9.3, RBC 3.32 L, Hgb 10.1 L, Hct 31.8 L, MCV 95.8, MCH 30.4, MCHC 31.8 L, RDW Std Deviation 43.1, RDW Coeff of [place] 12.4, Plt Count 228, MPV 9.5, Immature Gran % (Auto) 0.400, Neut % (Auto) 68.2, Lymph % (Auto) 15.0 L, [place] % (Auto) 8.8, Eos % (Auto) 7.0 H, Baso % (Auto) 0.6, Absolute Neuts (auto) 6.3, Absolute Lymphs (auto) 1.39, Nucleated RBC % 0, Sodium 133, Potassium 5.8 H, Chloride 95 L, Carbon Dioxide 32.3 H, Anion Gap 5, BUN 40 H, Creatinine 4.48 H, Estim Creat Clear Calc 11.50 L, Est GFR (MDRD) Non-Af 10 L, BUN/Creatinine Ratio 9.0 L, Glucose 158 H, Calcium 9.2 Imaging Radiology Impression Chest X-Ray 01/03/25 21:42 IMPRESSION: Left basilar effusion/infiltrate. [facility] Assessment & Plan Assessment/Plan (1) Acute hyperkalemia: (2) Anemia: (3) Chronic hypoxemic respiratory failure: (4) End-stage renal disease on hemodialysis: (5) Left lower lobe pneumonia: PLAN: Plan 1 left lower lobe pneumonia with chronic hypoxemic respiratory failure?admit patient to general medical floor continue oxygen therapy, vancomycin and Zosyn due to healthcare associated pneumonia. Will add albuterol breathing treatments as needed 2. End-stage renal disease?consult Dr. Huerta for assistance with dialysis 3. Hyperkalemia?patient treated in the emergency room and will repeat BMP in the a.m. 4. Anemia chronic?repeat CBC in the morning 5. DVT prophylaxis?SCDs Charges/Coding Visit Charges Inpatient E&M: 92669 Init Hosp L2
[2025-01-03] MEDS: Calcium Gluconate IV 3 GM in 0.9% Normal Saline (100mL Bag) 100 ML IV (23:51)
[2025-01-03] MEDS: Dextrose 10%-Water 250 ML 999 ML IV (23:52)
[2025-01-03] MEDS: Insulin Lispro 10 UNIT in Syringe 0 ML 6 UNIT IV (23:52)
[2025-01-04] VITALS (23 sets, daily range): BP systolic 113–237; BP diastolic 38–86; PULSE 56–91; RESP 12–22; TEMP 36.4–36.9; O2SAT 96–99; BMI 17.9; BMI 17.7; BMI 17.2
[2025-01-04] MEDS: Vancomycin HCl 750 MG in 0.9% Normal Saline (250mL Bag) 250 ML 250 MG IV (00:14)
[2025-01-04 01:35] LABS: Bedside Glucose 170 mg/dL (74-106)
--- NOTE | 2025-01-04 01:46 | PCM.RX.CS ---
Consult Antibiotic Management Pharmacy has been consulted to manage selected antibiotic: Vancomycin Type of Intervention Type of Consult: New start Suspected Infection Suspected Infection: Pneumonia Labs Labs: Sodium 133 mmol/L (133-145) 01/03/25 21:21 Potassium 5.8 mmol/L (3.3-5.1) H 01/03/25 21:21 Chloride 95 mmol/L (98-108) L 01/03/25 21:21 Carbon Dioxide 32.3 mmol/L (21.0-32.0) H 01/03/25 21:21 Anion Gap 5 (5-15) 01/03/25 21:21 BUN 40 mg/dL (4-19) H 01/03/25 21:21 Creatinine 4.48 mg/dL (0.70-1.20) H 01/03/25 21:21 Est GFR (MDRD) Non-Af 10 (>60) L 01/03/25 21:21 BUN/Creatinine Ratio 9.0 RATIO (10-20) L 01/03/25 21:21 Glucose 158 mg/dL (70-99) H 01/03/25 21:21 Dosing Weight Weight used for dosin.2 kg Estimated Creatinine Clearance Estimated Creatinine Clearance: 11.5 Goal Trough Goal Trough: 10-15 mcg/mL Pharmacy Plan for Drug Dosing Pharmacy Plan for Drug Dosing: Vancomycin initial dose of 750mg was given in ED 01/04/25 @0014. Subsequent doses will be scheduled in relation to hemodialysis sessions - pharmacy will coordinate with nursing. Pharmacy Service will continue to monitor and adjust dosing as required.
[2025-01-04] MEDS: Lorazepam 2 MG/ML WCH Syringe 0.5 MG IV (01:56)
[2025-01-04] MEDS: 0.9% Saline Lock 10 ML Syringe IV ×4 (01:57→21:50)
[2025-01-04] MEDS: Dextrose 10%-Water 250 ML 999 ML IV (02:20)
[2025-01-04 02:40] LABS: Absolute Neutrophil Count 7.4 X10^3/uL (2.0-7.7); Basophil# 0.07 X10^3/uL; Basophil% 0.6 % (0-1); Eosinophil# 0.78 X10^3/uL; Eosinophils% 6.4 % (0-5); Hematocrit 29.7 % (37-47); Hemoglobin 9.2 g/dL (12.0-15.0); Lymphocyte % 21.5 % (19-41); Mean Corpuscular Hgb 30.3 pg (27.0-32.0); Mean Corpuscular Volume 97.7 fL (81-99); Mean Platelet Vol. 9.5 fl (6.2-12.0); Monocyte# 1.24 X10^3/uL; Monocyte% 10.2 % (0-10); NRBC Flagged by Analyzer 0 % (0-5); Neutrophil # 7.37 X10^3/uL (2.7-7.7); Neutrophil % 60.9 % (47-70); Platelet Count 227 K/mm3 (150-450); RBC Distribution Width CV 12.5 % (11.6-14.6); RBC Distribution Width SD 44.8 fl (35.1-43.9); Red Blood Count 3.04 M/mm3 (4.2-5.4); White Blood Count 12.1 K/mm3 (4.4-11.0)
[2025-01-04 02:56] LABS: Anion Gap 8 (5-15); BUN 39 mg/dL (4-19); BUN/Creat Ratio 9.2 RATIO (10-20); Calcium,Total 9.8 mg/dL (7.6-11.0); Carbon Dioxide 26.9 mmol/L (21.0-32.0); Chloride 94 mmol/L (98-108); Creatinine, Serum 4.27 mg/dL (0.70-1.20); EST Glomerular Filtration Rate 11 (>60); Estimated Creatinine Clearance 10.41 ml/min (50-250); Glucose 256 mg/dL (70-99); Potassium 5.4 mmol/L (3.3-5.1); Sodium Level 129 mmol/L (133-145)
[2025-01-04 03:08] LABS: Bedside Glucose 251 mg/dL (74-106)
[2025-01-04 03:08] LABS: Bedside Glucose 244 mg/dL (74-106)
[2025-01-04 04:07] LABS: Bedside Glucose 173 mg/dL (74-106)
[2025-01-04 04:31] LABS: Bedside Glucose 153 mg/dL (74-106)
[2025-01-04 05:18] LABS: Bedside Glucose 132 mg/dL (74-106)
[2025-01-04] MEDS: hydrALAZINE 25 MG Tablet PO ×3 (06:19→21:51)
[2025-01-04 06:39] LABS: Bedside Glucose 188 mg/dL (74-106)
[2025-01-04] MEDS: Ipratropium/Albuterol Sulfate 3 ML AMPUL.NEB INHALATION ×2 (07:09→13:11)
[2025-01-04] MEDS: Budesonide Respules 0.5 MG/2 ML AMPUL.NEB. INHALATION (07:09)
[2025-01-04] MEDS: Insulin Lispro 100 UNIT/ML INSULN.PEN SC ×3 (09:44→21:50)
--- NOTE | 2025-01-04 10:12 | PN.HOSP_ITS ---
Reason for Visit Reason for Visit: Diagnoses Anemia, unspecified (01/03/25) Hyperkalemia (01/03/25) Pneumonia, unspecified organism (01/03/25) Chronic respiratory failure with hypoxia (01/03/25) End stage renal disease (01/03/25) Dependence on renal dialysis (01/03/25) Objective Data Objective Data Vital Signs: Vital Signs Temp Pulse Resp BP Pulse Ox O2 Del Method O2 Flow Rate 98.1 F 63 16 125/38 H 97 Nasal Cannula 3 01/04/25 08:21 01/04/25 08:21 01/04/25 08:21 01/04/25 08:21 01/04/25 08:21 01/04/25 08:23 01/04/25 08:21 Oxygen Flow Rate (L/min) 3 Oxygen Delivery Method Nasal Cannula Weight: 110 lb 10.753 oz Body Mass Index (BMI) 17.9 Intake & Output: Intake and Output for Last 24 Hours 01/02/25 01/03/25 01/04/25 23:59 23:59 23:59 Intake Total 945 / 945 Balance 945 / 945 Lab / Micro Data 01/04/25 02:30 01/04/25 02:30 Labs: Laboratory Results - last 24 hr 01/03/25 21:21: WBC 9.3, RBC 3.32 L, Hgb 10.1 L, Hct 31.8 L, MCV 95.8, MCH 30.4, MCHC 31.8 L, RDW Std Deviation 43.1, RDW Coeff of Iron 12.4, Plt Count 228, MPV 9.5, Immature Gran % (Auto) 0.400, Neut % (Auto) 68.2, Lymph % (Auto) 15.0 L, [place] % (Auto) 8.8, Eos % (Auto) 7.0 H, Baso % (Auto) 0.6, Absolute Neuts (auto) 6.3, Absolute Lymphs (auto) 1.39, Nucleated RBC % 0, Sodium 133, Potassium 5.8 H , Chloride 95 L, Carbon Dioxide 32.3 H, Anion Gap 5, BUN 40 H, Creatinine 4.48 H , Estim Creat Clear Calc 11.50 L, Est GFR (MDRD) Non-Af 10 L, BUN/Creatinine Ratio 9.0 L, Glucose 158 H, Calcium 9.2 01/04/25 00:37: POC Glucose 170 H 01/04/25 02:28: POC Glucose 244 H 01/04/25 02:30: WBC 12.1 H, RBC 3.04 L, Hgb 9.2 L, Hct 29.7 L, MCV 97.7, MCH 30.3, MCHC 31.0 L, RDW Std Deviation 44.8 H, RDW Coeff of Iron 12.5, Plt Count 227, MPV 9.5, Immature Gran % (Auto) 0.400, Neut % (Auto) 60.9, Lymph % (Auto) 21.5, [place] % (Auto) 10.2 H, Eos % (Auto) 6.4 H, Baso % (Auto) 0.6, Absolute Neuts (auto) 7.4, Absolute Lymphs (auto) 2.60, Nucleated RBC % 0, Sodium 129 L, Potassium 5.4 H, Chloride 94 L, Carbon Dioxide 26.9, Anion Gap 8, BUN 39 H, C reatinine 4.27 H, Estim Creat Clear Calc 10.41 L, Est GFR (MDRD) Non-Af 11 L, B UN/Creatinine Ratio 9.2 L, Glucose 256 H, Calcium 9.8 01/04/25 02:44: POC Glucose 251 H 01/04/25 03:44: POC Glucose 173 H 01/04/25 04:14: POC Glucose 153 H 01/04/25 05:01: POC Glucose 132 H 01/04/25 06:10: POC Glucose 188 H Radiography Diagnostic Testing: Radiology Impression Chest X-Ray 01/03/25 21:42 IMPRESSION: Left basilar effusion/infiltrate. Reading Location: [facility] Physical Exam Narrative Seen and examined. History taken from the patient and her near the bedside. She has history of COPD and uses oxygen and BiPAP at home. She is also CO2 retainer. Chronic combined respiratory failure. She stated that last Friday she started having flulike symptoms, chills and shortness of breath but denied cough. As per nursing staff, patient little drowsy and confused. Patient also had hyperkalemia and cocktail was given. K repeat 5.4. Her industrial relations director is Dr. Huerta. Physical exam General: Alert, Oriented x3, Cooperative HEENT: Atraumatic, PERRLA, EOMI, Normocephalic Oral: No Gingival or Mucosal Lesions/ Ulcerations Neck: Supple, No JVD, Negative Carotid Bruits Chest wall/Lungs: Air entry diminished in bilateral lung bases. Bilateral expiratory rhonchi. Cardiovascular: Regular rate, Regular Rhythm, Normal S1, Normal S2, No M/G/R Abdomen: Bowel Sounds Present, Soft, Non Tender, Non-Distended : On hemodialysis. No dysuria. No renal angle tenderness. No suprapubic tenderness. Extremities: No edema, Capillary Refill Less than 3 Seconds Skin: No rashes, No breakdown Musculoskeletal: No Tenderness to Palpation of Joints or Extremities Neurological: Cranial nerves II-XII grossly intact, DTR 2+/4. No acute focal neurological deficit. Psych/Mental Status: Flat affect. Assessment & Plan Assessment/Plan (1) Acute hyperkalemia: (2) Anemia: (3) Chronic hypoxemic respiratory failure: (4) End-stage renal disease on hemodialysis: (5) Left lower lobe pneumonia: PLAN: Plan 1. acute on chronic hypoxemic respiratory failure due to COPD exacerbation?patient on the PCU floor. On BiPAP. On vancomycin and Zosyn. ABG shows respiratory acidosis 7.28/72/69 on BiPAP. Earlier it was 7.24/72. Advised BiPAP 20/06. Previous sputum culture showed Pseudomonas aeruginosa and Staph aureus, MSSA. Repeat sputum culture ordered pulmonary consult. Patient is being managed on scheduled bronchodilator, IV Solu-Medrol, Mucinex, incentive spirometry and Pep. Triple PCR negative. MRSA nasal screen negative. COPD exacerbation from left lower lobe pneumonia 2. End-stage renal disease?consult Dr. Huerta for assistance with dialysis. Getting hemodialysis 3. Hyperkalemia?patient treated in the emergency room. Repeat potassium is 5.4 4. Anemia chronic?H&H 9.2/30%. Platelet count 227 5. Diabetes mellitus type 2 with hypoglycemia, glucose was low 33, 37,during admission and now high Microbiology Past 72 Hours 01/04/25 11:04 Nasal Secretion MRSA (PCR) - Final 01/04/25 11:04 Mucosa - Nose SARS-CoV-2, Influenza & RSV (PCR) - Final Laboratory Results 01/03/25 21:21: WBC 9.3, RBC 3.32 L, Hgb 10.1 L, Hct 31.8 L, MCV 95.8, MCH 30.4, MCHC 31.8 L, RDW Std Deviation 43.1, RDW Coeff of Iron 12.4, Plt Count 228, MPV 9.5, Immature Gran % (Auto) 0.400, Neut % (Auto) 68.2, Lymph % (Auto) 15.0 L, [place] % (Auto) 8.8, Eos % (Auto) 7.0 H, Baso % (Auto) 0.6, Absolute Neuts (auto) 6.3, Absolute Lymphs (auto) 1.39, Nucleated RBC % 0, Sodium 133, Potassium 5.8 H , Chloride 95 L, Carbon Dioxide 32.3 H, Anion Gap 5, BUN 40 H, Creatinine 4.48 H , Estim Creat Clear Calc 11.50 L, Est GFR (MDRD) Non-Af 10 L, BUN/Creatinine Ratio 9.0 L, Glucose 158 H, Calcium 9.2 01/04/25 00:37: POC Glucose 170 H 01/04/25 02:02: POC Glucose 33 L* 01/04/25 02:04: POC Glucose 37 L* 01/04/25 02:28: POC Glucose 244 H 01/04/25 02:30: WBC 12.1 H, RBC 3.04 L, Hgb 9.2 L, Hct 29.7 L, MCV 97.7, MCH 30.3, MCHC 31.0 L, RDW Std Deviation 44.8 H, RDW Coeff of Iron 12.5, Plt Count 227, MPV 9.5, Immature Gran % (Auto) 0.400, Neut % (Auto) 60.9, Lymph % (Auto) 21.5, [place] % (Auto) 10.2 H, Eos % (Auto) 6.4 H, Baso % (Auto) 0.6, Absolute Neuts (auto) 7.4, Absolute Lymphs (auto) 2.60, Nucleated RBC % 0, Sodium 129 L, Potassium 5.4 H, Chloride 94 L, Carbon Dioxide 26.9, Anion Gap 8, BUN 39 H, C reatinine 4.27 H, Estim Creat Clear Calc 10.41 L, Est GFR (MDRD) Non-Af 11 L, B UN/Creatinine Ratio 9.2 L, Glucose 256 H, Calcium 9.8 01/04/25 02:44: POC Glucose 251 H 01/04/25 03:44: POC Glucose 173 H 01/04/25 04:14: POC Glucose 153 H 01/04/25 05:01: POC Glucose 132 H 01/04/25 06:10: POC Glucose 188 H 01/04/25 09:37: POC Glucose 303 H 01/04/25 10:44: Specimen Type ART, Sample Site L Radial, pH 7.24 L, Bicarbonate Actual 31.3 H, Total CO2 34, Base Excess 4 H, O2 Saturation 94 L, O2 % 3.0, ABG pCO2 72.6 H*, ABG pO2 86, Demond Test Positive, O2 Delivery Device Cannula, Vent Mode Not entered, Crit Call To/Read Back Yes, Blood Gas Notified Whom pradeep, Blood Gas Notified Time 10:46:25 01/04/25 11:58: POC Glucose 282 H 01/04/25 13:50: Specimen Type ART, Sample Site %, pH 7.28 L, Bicarbonate Actual 33.3 H, Total CO2 36, Base Excess 7 H, O2 Saturation 90 L, O2 % 30.0, ABG pCO2 71.6 H*, ABG pO2 69 L, Demond Test Positive, O2 Delivery Device BiPAP, Vent Mode Not entered, Crit Call To/Read Back Yes, Clinical Comments Clinical Impression(s) from Imaging Studies Chest X-Ray 01/03/25 21:42 IMPRESSION: Left basilar effusion/infiltrate. Reading Location: [facility] Charges/Coding Visit Charges Inpatient E&M: 67852 Subs Hosp L2
[2025-01-04 10:29] LABS: Bedside Glucose 303 mg/dL (74-106)
[2025-01-04 10:49] LABS: Allen Test Positive; Base Excess 4 mmol/L (-2 to +2); Bicarbonate 31.3 mmol/L (22-26); Blood Gas Specimen Type ART; Mode Not entered; O2 Delivery Device Cannula; PO2 86 mmHG (75-100); SITE L Radial; SO2 94 % (95-99); Total Carbon Dioxide 34 mmol/L; pCO2 72.6 mmHg (35-45); pH 7.24 (7.35-7.45)
--- NOTE | 2025-01-04 11:27 | WOUNDNOTE ---
wound photo: right great toe
[2025-01-04] MEDS: Insulin Glargine-YFGN 100 UNIT/ML Pen 10 UNIT SC (12:11)
[2025-01-04] MEDS: PureFlow B 2K Dialysis Soln 1 BAG 6 BAG PF (12:33)
[2025-01-04] MEDS: 0.9% Normal Saline 1,000 ML IV.SOLN. 1000 ML OPERA.SITE (12:35)
[2025-01-04] MEDS: Epoetin Alfa epbx 10,000 UNIT/ML 6000 UNIT IV (12:35)
--- NOTE | 2025-01-04 13:30 | CPS ---
Critical value verified times two. Sent results to DR. Cat. Increased rate to 16 bpm.
[2025-01-04 13:53] LABS: Allen Test Positive; Base Excess 7 mmol/L (-2 to +2); Bicarbonate 33.3 mmol/L (22-26); Blood Gas Specimen Type ART; Mode Not entered; O2 Delivery Device BiPAP; PO2 69 mmHG (75-100); SO2 90 % (95-99); Total Carbon Dioxide 36 mmol/L; pCO2 71.6 mmHg (35-45); pH 7.28 (7.35-7.45)
--- NOTE | 2025-01-04 14:00 | PCM.CONS.R ---
Assessment & Plan Assessment/Plan (1) End-stage renal disease on hemodialysis: PLAN: HD MWF dialysis today for missed treatment yesterday. Next dialysis Wed (2) Acute hyperkalemia: PLAN: correct with dialysis med mgmt (3) Acute respiratory failure with hypoxia and hypercarbia: PLAN: BIPAP (4) Anemia: PLAN: JIMMY (5) COPD exacerbation: (6) Parapneumonic effusion: (7) Pleural effusion on left: (8) Hypertension: QUALIFIERS: Hypertension type: unspecified Qualified Code(s): I10 - Essential (primary) hypertension (9) DM type 1 (diabetes mellitus, type 1): QUALIFIERS: Diabetes mellitus complication status: with kidney complications Diabetes mellitus complication detail: with chronic kidney disease Chronic kidney disease stage: stage 4 (severe) Qualified Code(s): E10.22 - Type 1 diabetes mellitus with diabetic chronic kidney disease; N18.4 - Chronic kidney disease, stage 4 (severe) HPI Consult Data Date of Consult: 01/05/25 HPI Narrative Reason for Consultation: ESRD HD MWF, renal mgmt HPI Narrative: SANDY ELLIS, is a 64 F who presents with acute shortness of breath worse since Friday, hypercapnea, hypoxia, pneumonia. She is on HD MWF missed dialysis yesterday. Currently on dialysis on BiPAP. Confusion earlier today, disoriented to time. More alert now. BP stable on dialysis. She had her AVF right arm placed on 12/31/24. [facility] Medical History On home oxygen therapy Wears hearing aid Wears glasses Post-menopausal Insulin dependent diabetes mellitus Diabetes History of renal dialysis History of renal disease Anemia High cholesterol Easy bruising Excessive bleeding Injury of head and neck Former smoker Emphysema, unspecified History of edema History of echocardiogram History of stress test Cardiology follow-up encounter Osteoporosis Presence of insulin pump Severely underweight adult Lung nodule, multiple Nicotine abuse Lung nodule, solitary Fissure in skin of foot Adrian's sign present Tobacco abuse CKD (chronic kidney disease) stage 4, GFR 15-29 ml/min Body mass index (BMI) less than 16.5 Underweight Polyneuropathy due to type 1 diabetes mellitus Stage 4 chronic kidney disease due to type 1 diabetes mellitus Respiratory failure with hypoxia Smoking greater than 30 pack years Anemia Diabetic nephropathy, type I Hyperkalemia Renal insufficiency Diabetes Chronic obstructive pulmonary disease Essential (primary) hypertension Hypersomnia Anxiety Depression Atherosclerosis of coronary artery of [place] heart without angina pectoris NSTEMI (non-ST elevated myocardial infarction) (01/12/18) DM type 1 (diabetes mellitus, type 1) Hyperlipidemia COPD (chronic obstructive pulmonary disease) Home Medications ?Medication ?Instructions ?Recorded ?Last Taken ?Type simvastatin 40 mg tablet 40 mg PO QHS cholesterol 06/21/18 01/03/25 History albuterol sulfate 2.5 mg/3 mL 2.5 mg (3 mL) inhalation Q2H PRN 06/23/18 Unknown Rx (0.083 %) solution for nebulization PRN dyspnea, wheezing ##1 aspirin 81 mg tablet,delayed 81 mg PO DAILY heart health 12/31/19 01/03/25 History release pen needle, diabetic 32 gauge x ##1 08/29/20 Unknown Rx flash glucose scanning reader #1 ea 11/20/20 Unknown Rx (FreeStyle Eileen 2 [place]) blood sugar diagnostic (FreeStyle #25 ea 08/26/23 Unknown Rx Precision Jeff Strips) FreeStyle Eileen 2 Sensor (flash #6 ea 08/27/23 Unknown Rx glucose sensor) oxygen See Rx Instructions NASAL .COMPLEX 12/03/23 01/04/25 History O2 therapy ipratropium 0.5 mg-albuterol 3 mg 3 ml inhalation Q4H PRN PRN SOB 12/29/23 Unknown Rx (2.5 mg base)/3 mL nebulization &/OR WHEEZING #180 mL soln insulin pump cart,automated,BT #10 ea 05/31/24 Unknown Rx (Omnipod 5 G6 Pods (Gen 5) subcutaneous cartridge) denosumab 60 mg/mL subcutaneous 60 mg subcut [id number] #1 mL 06/10/24 07/09/24 Rx syringe (Prolia) clopidogrel 75 mg tablet 75 mg PO DAILY #90 tabs 07/26/24 01/03/25 Rx blood-glucose sensor (Dexcom G6 #3 ea 10/05/24 Unknown Rx Sensor device) gabapentin 800 mg tablet 200 mg PO BID neuropathy 10/07/24 01/03/25 History nitroglycerin 0.4 mg sublingual 0.4 mg sublingual Q5-15M PRN chest 10/21/24 Unknown Rx tablet pain #25 tabs insulin lispro 100 unit/mL 60 unit (0.6 mL) continuous 10/25/24 01/04/25 Rx subcutaneous solution (Humalog subcutaneous infusion .continuous U-100 Insulin) #54 mL lisinopril 2.5 mg tablet 2.5 mg PO BID Blood pressure 11/04/24 01/03/25 History metoprolol tartrate 50 mg tablet 50 mg PO BID #180 tabs 11/11/24 01/03/25 Rx blood-glucose transmitter (Dexcom #2 ea 11/15/24 Unknown Rx G6 Transmitter device) amlodipine 10 mg tablet (Norvasc) 10 mg PO DAILY 30 days #30 tabs 11/20/24 01/03/25 Rx roflumilast 500 mcg tablet 500 mcg PO DAILY #30 tabs 12/03/24 01/03/25 Rx (Daliresp) buspirone 7.5 mg tablet 7.5 mg PO DAILY Antianxiety 12/14/24 01/03/25 History sevelamer carbonate 800 mg tablet 800 mg PO TID To lower Phosphorus 12/14/24 01/03/25 History hydralazine 25 mg tablet 25 mg PO TID 30 days #90 tabs 12/16/24 01/03/25 Rx potassium gluconate 500 mg (83 mg) 500 mg PO TID Supplement 12/16/24 01/03/25 History tablet albuterol sulfate 90 mcg/actuation 2 puff inhalation Q6H PRN PRN 12/30/24 Unknown Rx aerosol inhaler Cough #8.5 grams fluticasone fur. 200 mcg-umeclid 1 inh inhalation DAILY #3 ea 12/30/24 01/03/25 Rx 62.5 mcg-vilant 25 mcg inhalat.powder (Trelegy Ellipta) Allergy/AdvReac Type Severity Reaction Status Date / Time No Known Allergies Allergy Verified 01/04/25 00:50 Family History Mother Heart disease COPD (chronic obstructive pulmonary disease) Lupus Daughter Growth disorder Down syndrome Fibromyalgia Grandfather Colon cancer Diabetes Grandmother Heart disease CVA (cerebral vascular accident) Diabetes Pulmonary disease Sister Hypertension Kidney disease Surgical History Hx of surgical procedure History of cardiac catheterization History of coronary artery stent placement Hx of surgical procedure H/O: Hx of appendectomy H/O: hysterectomy History of coronary artery stent placement (02/04/18) Social History household members: spouse housing: house pets and animals: Yes pets and animals: cat(s) Smoking Status: Former smoker how long ago did patient quit smoking: Since 05/2024 cut back and has only had ~ 10 cigarettes since then. quit status: considering quitting alcohol intake: never substance use type: does not use caffeine: Yes Type: carbonated beverages Number of servings: 4 what type of physical activity do you participate in: none seatbelt use: always do you feel safe at home: Yes ROS Review of Systems ROS Unobtainable: due to encephalopathy Constitutional Constitutional: Reports weakness; Denies chills or fever(s) Cardiovascular Cardiovascular: Denies chest pain or syncope Respiratory/Chest Respiratory/Chest: Reports dry cough, dyspnea on exertion and shortness of breath at rest Gastrointestinal Gastrointestinal: Denies abdominal pain, anorexia or diarrhea Neurologic Neurologic: Reports weakness Psychiatric Psychiatric: Reports confusion Hematologic/Lymphatic Hematologic/Lymphatic: Reports anemia Physical Exam Const Constitutional Narrative: dyspneic on oxygen Orientation / Consciousness: oriented to person, oriented to place and confused Nutritional Appearance: thin Resp Auscultation: rhonchi Cardio regular rate GI non-tender and non-distended Auscultation: normoactive bowel sounds Palpation: soft Extremity General Extremity: AV fistula Psych cooperative Lab / Micro Data 01/04/25 02:30 01/04/25 02:30 Labs: Laboratory Results - last 24 hr 01/03/25 21:21: WBC 9.3, RBC 3.32 L, Hgb 10.1 L, Hct 31.8 L, MCV 95.8, MCH 30.4, MCHC 31.8 L, RDW Std Deviation 43.1, RDW Coeff of Iron 12.4, Plt Count 228, MPV 9.5, Immature Gran % (Auto) 0.400, Neut % (Auto) 68.2, Lymph % (Auto) 15.0 L, [place] % (Auto) 8.8, Eos % (Auto) 7.0 H, Baso % (Auto) 0.6, Absolute Neuts (auto) 6.3, Absolute Lymphs (auto) 1.39, Nucleated RBC % 0, Sodium 133, Potassium 5.8 H, Chloride 95 L, Carbon Dioxide 32.3 H, Anion Gap 5, BUN 40 H, Creatinine 4.48 H, Estim Creat Clear Calc 11.50 L, Est GFR (MDRD) Non-Af 10 L, BUN/Creatinine Ratio 9.0 L, Glucose 158 H, Calcium 9.2 01/04/25 00:37: POC Glucose 170 H 01/04/25 02:28: POC Glucose 244 H 01/04/25 02:30: WBC 12.1 H, RBC 3.04 L, Hgb 9.2 L, Hct 29.7 L, MCV 97.7, MCH 30.3, MCHC 31.0 L, RDW Std Deviation 44.8 H, RDW Coeff of Iron 12.5, Plt Count 227, MPV 9.5, Immature Gran % (Auto) 0.400, Neut % (Auto) 60.9, Lymph % (Auto) 21.5, [place] % (Auto) 10.2 H, Eos % (Auto) 6.4 H, Baso % (Auto) 0.6, Absolute Neuts (auto) 7.4, Absolute Lymphs (auto) 2.60, Nucleated RBC % 0, Sodium 129 L, Potassium 5.4 H, Chloride 94 L, Carbon Dioxide 26.9, Anion Gap 8, BUN 39 H, Creatinine 4.27 H, Estim Creat Clear Calc 10.41 L, Est GFR (MDRD) Non-Af 11 L, BUN/Creatinine Ratio 9.2 L, Glucose 256 H, Calcium 9.8 01/04/25 02:44: POC Glucose 251 H 01/04/25 03:44: POC Glucose 173 H 01/04/25 04:14: POC Glucose 153 H 01/04/25 05:01: POC Glucose 132 H 01/04/25 06:10: POC Glucose 188 H 01/04/25 09:37: POC Glucose 303 H Micro: Microbiology 01/04/25 11:04 Nasal Secretion MRSA (PCR) - Final 01/04/25 11:04 Mucosa - Nose SARS-CoV-2, Influenza & RSV (PCR) - Final ABG Data ABG results: ABG 01/04/25 01/04/25 10:44 13:50 Specimen Type ART ART Sample Site L Radial % pH 7.24 L 7.28 L Bicarbonate Actual 31.3 H 33.3 H Total CO2 34 36 Base Excess 4 H 7 H O2 Saturation 94 L 90 L O2 % 3.0 30.0 ABG pCO2 72.6 H* 71.6 H* ABG pO2 86 69 L Demond Test Positive Positive O2 Delivery Device Cannula BiPAP Vent Mode Not entered Not entered Crit Call To/Read Back Yes Yes Blood Gas Notified Whom pradeep Blood Gas Notified Time 10:46:25 Clinical Comments Imaging Radiology Impression Chest X-Ray 01/03/25 21:42 IMPRESSION: Left basilar effusion/infiltrate. Reading Location: [facility]
[2025-01-04 14:08] LABS: Bedside Glucose 37 mg/dL (74-106)
[2025-01-04 14:08] LABS: Bedside Glucose 33 mg/dL (74-106)
[2025-01-04 14:10] LABS: Bedside Glucose 282 mg/dL (74-106)
--- NOTE | 2025-01-04 14:43 | CASEMGMT ---
RN CM called for initial transition planning/care coordination assessment as patient is sleeping with bipap applied. RN CM introduced self and role at [facility]. willing to participate in assessment and is able to answer all questions appropriately. Care providers, pharmacy, and demographics verified. Strata: 3 PCP: Tai Specialists: Bradley, shed workers supervisor; , application dba; CHAPINCITO, manager video; Liang flasher adjuster Preferred Pharmacy: [facility] Insurance: MCR, MMO exchange Prescription Benefit: yes Living Will/HPOA: none LNOK: Living Arrangements: Patient lives with in a 2 story home with bed and bath on first floor. Patient is independent at home Transportation: self, DME/HHC: Patient has shower chair, cane, walker, bipap, nebulizer, pulse ox, and home oxygen through [employer] with portability. Patient has HD at [facility] MWF at 1245 wishes to discharge home, denies need for home health at this time. states he has no further needs or concerns at this time. CM to follow for discharge planning needs that may arise. Disposition Plan: Patient to discharge home with family support and follow-up plans in place. Maria Eugenia ROWELL, RN, CM
[2025-01-04] MEDS: Piperacil/Tazobactam 3.375 GM in 0.9% Normal Saline (50mL MB+) 50 ML IV ×2 (15:18→21:52)
[2025-01-04] MEDS: Clopidogrel Bisulfate 75 MG Tablet PO (16:39)
[2025-01-04] MEDS: Aspirin E.C. 81 MG Tablet PO (16:39)
[2025-01-04] MEDS: SEVELAMER CARBONATE 800 MG TABLET PO (16:39)
[2025-01-04 17:03] LABS: Bedside Glucose 133 mg/dL (74-106)
[2025-01-04] MEDS: ALPRAZolam 0.25 MG Tablet PO (18:49)
[2025-01-04] MEDS: Vancomycin IV 500 MG/100 ML BAG 100 MG IV (20:25)
[2025-01-04] MEDS: oxyCODONE 5 MG Tablet PO (20:32)
--- NOTE | 2025-01-04 20:36 | CPS ---
Patient was requesting to go back on BIPAP at this time. RT placed mask on patient who made RT aware she had a nose bleed. After a couple of seconds with the BIPAP mask on her face the patient acted as if she was not tolerating therapy and requested to come off the BIPAP at this time. Patient placed back 3L nasal cannula 98% instead
[2025-01-04] MEDS: Gabapentin 100 MG Capsule 200 MG PO (21:50)
[2025-01-04] MEDS: Atorvastatin Calcium 20 MG Tablet PO (21:51)
[2025-01-04] MEDS: Lisinopril 2.5 MG Tablet PO (21:51)
[2025-01-04] MEDS: Metoprolol Tartrate 50 MG Tablet PO (21:51)
[2025-01-04 23:31] LABS: Bedside Glucose 308 mg/dL (74-106)
[2025-01-05] VITALS (24 sets, daily range): BP systolic 38–231; BP diastolic 48–65; PULSE 66–88; RESP 12–21; TEMP 36.2–36.6; O2SAT 96–99; BMI 17.2; BMI 16.5
[2025-01-05] MEDS: hydrALAZINE 25 MG Tablet PO ×3 (06:06→21:12)
[2025-01-05] MEDS: 0.9% Saline Lock 10 ML Syringe IV ×4 (06:06→21:11)
[2025-01-05] MEDS: Insulin Lispro 100 UNIT/ML INSULN.PEN SC ×4 (06:06→21:09)
[2025-01-05 06:46] LABS: Hemoglobin A1c 6.6 % (<=5.6)
[2025-01-05 07:02] LABS: Bedside Glucose 286 mg/dL (74-106)
[2025-01-05 07:05] LABS: Vancomycin, Random Level 15.1 ug/mL (0.0-15.0)
[2025-01-05] MEDS: Ipratropium/Albuterol Sulfate 3 ML AMPUL.NEB INHALATION (07:33)
[2025-01-05] MEDS: Acetaminophen 325 MG Tablet 650 MG PO (09:02)
[2025-01-05] MEDS: busPIRone 5 MG Tablet 7.5 MG PO (09:02)
[2025-01-05] MEDS: SEVELAMER CARBONATE 800 MG TABLET PO ×2 (09:02→16:16)
[2025-01-05 09:19] LABS: Hematocrit 29.6 % (37-47); Hemoglobin 9.4 g/dL (12.0-15.0); Mean Corp Hgb Conc 31.8 g/dL (32-36); Mean Corpuscular Hgb 30.3 pg (27.0-32.0); Mean Corpuscular Volume 95.5 fL (81-99); Platelet Count 235 K/mm3 (150-450); RBC Distribution Width CV 12.9 % (11.6-14.6); RBC Distribution Width SD 44.2 fl (35.1-43.9); White Blood Count 10.5 K/mm3 (4.4-11.0)
[2025-01-05 09:53] LABS: Phosphorus 4.3 mg/dL (2.7-4.5)
[2025-01-05 10:30] LABS: Albumin, Serum 3.4 g/dL (3.4-4.8); Anion Gap 11 (5-15); BUN 39 mg/dL (4-19); BUN/Creat Ratio 10.7 RATIO (10-20); Calcium,Total 9.2 mg/dL (7.6-11.0); Carbon Dioxide 23.6 mmol/L (21.0-32.0); Chloride 95 mmol/L (98-108); Creatinine, Serum 3.67 mg/dL (0.70-1.20); EST Glomerular Filtration Rate 13 (>60); Estimated Creatinine Clearance 11.77 ml/min (50-250); Glucose 301 mg/dL (70-99); Potassium 6.1 mmol/L (3.3-5.1); Sodium Level 130 mmol/L (133-145)
[2025-01-05] MEDS: Insulin Glargine-YFGN 100 UNIT/ML Pen 10 UNIT SC (11:36)
[2025-01-05 11:41] LABS: Bedside Glucose 419 mg/dL (74-106)
[2025-01-05 12:04] LABS: Allen Test Positive; Base Excess -1 mmol/L (-2 to +2); Bicarbonate 25.6 mmol/L (22-26); Blood Gas Specimen Type ART; Mode Not entered; O2 Delivery Device BiPAP; PO2 87 mmHG (75-100); SITE L Radial; SO2 95 % (95-99); Total Carbon Dioxide 27 mmol/L; pH 7.28 (7.35-7.45)
--- NOTE | 2025-01-05 12:16 | CON.PCM.CC_ITS ---
Assessment & Plan Assessment/Plan (1) End-stage renal disease on hemodialysis: (2) Chronic hypoxemic respiratory failure: PLAN: Plan RECOMMENDATIONS: 1. Continue supplemental oxygen for baseline requirement at 3 L/min. 2. Continue scheduled bronchodilators and IV steroids. 3. Continue antimicrobials to complete 7 days of therapy. 4. The importance of compliance with PAP therapy was emphasized to the patient. 5. Encourage incentive spirometer use and mobilize patient as tolerated. 6. The patient is currently scheduled to follow-up in the pulmonary medicine clinic later this month. 7. Given that the patient is at her baseline from a pulmonary perspective, we will sign off. Please call with questions. IMPRESSIONS: 1. Acute on chronic combined respiratory failure Clinical concern for underlying COPD in a state of exacerbation due to pneumonia. In addition, the patient has questionable outpatient compliance with PAP therapy. She has responded appropriately to the use of noninvasive positive pressure ventilatory support, antimicrobials, bronchodilators and steroids. She is currently at her baseline from a respiratory perspective. From my standpoint, the patient should complete a 7-day treatment course of antibiotics. At discharge, recommend transitioning her to prednisone 40 mg daily x 5 days. The importance of compliance with PAP therapy was emphasized to the patient. 2. End-stage renal disease on hemodialysis Continue routine dialysis per nephrology recommendations. 3. History of COPD/tobacco dependency in remission/diabetes mellitus/anemia of chronic disease Complicates care, management, recovery and prognosis. Continue home medications as indicated. This note was generated with [employer] dictation software. It may contain incorrect words, spelling, and punctuation that were not noted in checking the note before signing. HPI Consult Data Date of Consult: 01/05/25 HPI Narrative Reason for Consultation: Respiratory failure HPI Narrative: The patient is a 64-year-old female, with a history as outlined below, who presented to the emergency department on January 03 with generalized malaise and shortness of breath. The patient's medical history is significant for end-stage renal disease on hemodialysis, hypertension, hyperlipidemia, coronary artery disease, COPD and chronic combined respiratory failure. She is maintained on a triple therapy inhaler regimen on an outpatient basis. On presentation to the emergency department, the patient was documented to be afebrile and hemodynamically stable. She was initially saturating 97% on 3 L/min via nasal cannula. Laboratory evaluation was notable for a normal white blood cell count. Hemoglobin and platelet count were stable. Chemistry profile was notable for a bicarbonate of 32. COVID, influenza and RSV PCR's were negative. MRSA screen was negative. Chest x-ray was significant for left lower lobe infiltrate with effusion. The patient was subsequently placed on scheduled bronchodilators, IV steroids and antimicrobials. She was admitted to the progressive care unit for further management. As of this afternoon, the patient is maintaining appropriate oxygen saturations on 3 L/min, which is her baseline requirement. She has questionable compliance with her prescribed outpatient PAP therapy. The patient is currently receiving dialysis. [facility] Medical History On home oxygen therapy Wears hearing aid Wears glasses Post-menopausal Insulin dependent diabetes mellitus Diabetes History of renal dialysis History of renal disease Anemia High cholesterol Easy bruising Excessive bleeding Injury of head and neck Former smoker Emphysema, unspecified History of edema History of echocardiogram History of stress test Cardiology follow-up encounter Osteoporosis Presence of insulin pump Severely underweight adult Lung nodule, multiple Nicotine abuse Lung nodule, solitary Fissure in skin of foot Adrian's sign present Tobacco abuse CKD (chronic kidney disease) stage 4, GFR 15-29 ml/min Body mass index (BMI) less than 16.5 Underweight Polyneuropathy due to type 1 diabetes mellitus Stage 4 chronic kidney disease due to type 1 diabetes mellitus Respiratory failure with hypoxia Smoking greater than 30 pack years Anemia Diabetic nephropathy, type I Hyperkalemia Renal insufficiency Diabetes Chronic obstructive pulmonary disease Essential (primary) hypertension Hypersomnia Anxiety Depression Atherosclerosis of coronary artery of [place] heart without angina pectoris NSTEMI (non-ST elevated myocardial infarction) (01/12/18) DM type 1 (diabetes mellitus, type 1) Hyperlipidemia COPD (chronic obstructive pulmonary disease) Home Medications ?Medication ?Instructions ?Recorded ?Last Taken ?Type simvastatin 40 mg tablet 40 mg PO QHS cholesterol 01/03/25 History albuterol sulfate 2.5 mg/3 mL 2.5 mg (3 mL) inhalation Q2H PRN 06/23/18 Unknown Rx (0.083 %) solution for nebulization PRN dyspnea, wheez ing ##1 aspirin 81 mg tablet,delayed 81 mg PO DAILY heart heal th 12/31/19 01/03/25 History release pen needle, diabetic 32 gauge x ##1 08/29/20 Unknown R x 5/32 flash glucose scanning reader #1 ea 11/20/20 Unknown R x (FreeStyle Eileen 2 Bolton) blood sugar diagnostic (FreeStyle #25 ea 08/26/23 Unkn own Rx Precision Jeff Strips) FreeStyle Eileen 2 Sensor (flash #6 ea 08/27/23 Unknown Rx glucose sensor) oxygen See Rx Instructions NASAL .C OMPLEX 12/03/23 01/04/25 History O2 therapy ipratropium 0.5 mg-albuterol 3 mg 3 ml inhalation Q4H PRN PRN SOB 12/29/23 Unknown Rx (2.5 mg base)/3 mL nebulization &/OR WHEEZING #180 mL soln insulin pump cart,automated,BT #10 ea 05/31/24 Unknown Rx (Omnipod 5 G6 Pods (Gen 5) subcutaneous cartridge) denosumab 60 mg/mL subcutaneous 60 mg subcut [id number] #1 mL 06/10/24 07/09/24 Rx syringe (Prolia) clopidogrel 75 mg tablet 75 mg PO DAILY #90 tabs 07/0501/03/25 Rx blood-glucose sensor (Dexcom G6 #3 ea 10/05/24 Unknown Rx Sensor device) gabapentin 800 mg tablet 200 mg PO BID neuropathy 03/2601/03/25 History nitroglycerin 0.4 mg sublingual 0.4 mg sublingual Q5-1 5M PRN chest 10/21/24 Unknown Rx tablet pain #25 tabs insulin lispro 100 unit/mL 60 unit (0.6 mL) continuous 10/25/24 01/04/25 Rx subcutaneous solution (Humalog subcutaneous infusion . continuous U-100 Insulin) #54 mL lisinopril 2.5 mg tablet 2.5 mg PO BID Blood pressure 11/04/24 01/03/25 History metoprolol tartrate 50 mg tablet 50 mg PO BID #180 tab s 11/11/24 01/03/25 Rx blood-glucose transmitter (Dexcom #2 ea 11/15/24 Unkno wn Rx G6 Transmitter device) amlodipine 10 mg tablet (Norvasc) 10 mg PO DAILY 30 da ys #30 tabs 11/20/24 01/03/25 Rx roflumilast 500 mcg tablet 500 mcg PO DAILY #30 tabs 0 12/03/24 01/03/25 Rx (Daliresp) buspirone 7.5 mg tablet 7.5 mg PO DAILY Antianxiety 12/14/24 01/03/25 History sevelamer carbonate 800 mg tablet 800 mg PO TID To low er Phosphorus 12/14/24 01/03/25 History hydralazine 25 mg tablet 25 mg PO TID 30 days #90 tab s 12/16/24 01/03/25 Rx potassium gluconate 500 mg (83 mg) 500 mg PO TID Suppl ement 12/16/24 01/03/25 History tablet albuterol sulfate 90 mcg/actuation 2 puff inhalation Q 6H PRN PRN 12/30/24 Unknown Rx aerosol inhaler Cough #8.5 grams fluticasone fur. 200 mcg-umeclid 1 inh inhalation HAJA Y #3 ea 12/30/24 01/03/25 Rx 62.5 mcg-vilant 25 mcg inhalat.powder (Trelegy Ellipta) Allergy/AdvReac Type Severity Reaction Status Date / Time No Known Allergies Allergy Verified 01/04/25 00:50 Family History Mother Heart disease COPD (chronic obstructive pulmonary disease) Lupus Daughter Growth disorder Down syndrome Fibromyalgia Grandfather Colon cancer Diabetes Grandmother Heart disease CVA (cerebral vascular accident) Diabetes Pulmonary disease Sister Hypertension Kidney disease Surgical History Hx of surgical procedure History of cardiac catheterization History of coronary artery stent placement Hx of surgical procedure H/O: Hx of appendectomy H/O: hysterectomy History of coronary artery stent placement (02/04/18) Social History household members: spouse housing: house pets and animals: Yes pets and animals: cat(s) Smoking Status: Former smoker how long ago did patient quit smoking: Since 05/2024 cut back and has only had ~ 10 cigarettes since then. quit status: considering quitting alcohol intake: never substance use type: does not use caffeine: Yes Type: carbonated beverages Number of servings: 4 what type of physical activity do you participate in: none seatbelt use: always do you feel safe at home: Yes Physical Exam Const alert and no apparent distress General Appearance: cooperative HEENT normocephalic, head/scalp atraumatic and moist oral mucous membranes Eyes EOMs intact bilaterally, conjunctivae normal and no scleral icterus Neck supple General: trachea midline Chest inspection of chest normal Resp normal respiratory effort Auscultation: diminished lung sounds Cardio regular rate and regular rhythm GI normal to inspection, nondistended, normoactive bowel sounds Extremity no clubbing, cyanosis or edema Skin no rashes or lesions noted Neuro CN's II-XII intact bilaterally, moves all extremities and no focal motor deficits Psych cooperative and affect normal Lab / Micro Data 01/05/25 05:48 01/05/25 05:48 Labs: Laboratory Results - last 24 hr 01/04/25 02:02: POC Glucose 33 L* 01/04/25 02:04: POC Glucose 37 L* 01/04/25 11:58: POC Glucose 282 H 01/04/25 16:34: POC Glucose 133 H 01/04/25 21:48: POC Glucose 308 H 01/05/25 05:48: WBC 10.5, RBC 3.10 L, Hgb 9.4 L, Hct 29.6 L, MCV 95.5, MCH 30.3, MCHC 31.8 L, RDW Std Deviation 44.2 H, RDW Coeff of Iron 12.9, Plt Count 235, MPV 10.0, Sodium 130 L, Potassium 6.1 H*, Chloride 95 L, Carbon Dioxide 23.6, Anion Gap 11, BUN 39 H, Creatinine 3.67 H, Estim Creat Clear Calc 11.77 L, Est GFR (MDRD) Non-Af 13 L, BUN/Creatinine Ratio 10.7, Glucose 301 H, Hemoglobin A1c 6.6, Calcium 9.2, Phosphorus 4.3, Albumin 3.4, Random Vancomycin 15.1 H 01/05/25 06:05: POC Glucose 286 H 01/05/25 11:23: POC Glucose 419 H Micro: Microbiology 01/04/25 11:04 Nasal Secretion MRSA (PCR) - Final 01/04/25 11:04 Mucosa - Nose SARS-CoV-2, Influenza & RSV (PCR) - Final ABG Data ABG results: ABG 01/04/25 01/05/25 13:50 12:00 Specimen Type ART ART Sample Site % L Radial pH 7.28 L 7.28 L Bicarbonate Actual 33.3 H 25.6 Total CO2 36 27 Base Excess 7 H -1 O2 Saturation 90 L 95 O2 % 30.0 30.0 ABG pCO2 71.6 H* 55.0 H ABG pO2 69 L 87 Demond Test Positive Positive O2 Delivery Device BiPAP BiPAP Vent Mode Not entered Not entered Crit Call To/Read Back Yes Clinical Comments Charges/Coding Visit Charges Inpatient E&M: 75423 Init Hosp L3
--- NOTE | 2025-01-05 12:19 | PCM.RX.CS ---
Consult Antibiotic Management Pharmacy has been consulted to manage selected antibiotic: Vancomycin Type of Intervention Type of Consult: Follow-up Prior Doses of Antibiotics Prior Doses of Antibiotics Received/Current Regimen: received vanc 500mg IV x1 after HD yessterday Labs Labs: Sodium 130 mmol/L (133-145) L 01/05/25 05:48 Potassium 6.1 mmol/L (3.3-5.1) H* 01/05/25 05:48 Chloride 95 mmol/L (98-108) L 01/05/25 05:48 Carbon Dioxide 23.6 mmol/L (21.0-32.0) 01/05/25 05:48 Anion Gap 11 (5-15) 01/05/25 05:48 BUN 39 mg/dL (4-19) H 01/05/25 05:48 Creatinine 3.67 mg/dL (0.70-1.20) H 01/05/25 05:48 Est GFR (MDRD) Non-Af 13 (>60) L 01/05/25 05:48 BUN/Creatinine Ratio 10.7 RATIO (10-20) 01/05/25 05:48 Glucose 301 mg/dL (70-99) H 01/05/25 05:48 Random Vancomycin 15.1 ug/mL (0.0-15.0) H 01/05/25 05:48 Microbiology Microbiology: Microbiology 01/04/25 11:04 Nasal Secretion MRSA (PCR) - Final 01/04/25 11:04 Mucosa - Nose SARS-CoV-2, Influenza & RSV (PCR) - Final Dosing Weight Weight used for dosin lb 9.369 oz Estimated Creatinine Clearance Estimated Creatinine Clearance: on HD Goal Trough Goal Trough: 10-15 mcg/mL Pharmacy Plan for Drug Dosing Pharmacy Plan for Drug Dosing: The vanc random level drawn today at 05:48 before dialysis was 15.1. Per [facility] protocol for dosing vanc in HD patients, will give another 500mg IV x1 today after HD. Repeat a random level before HD on Friday as the patient gets HD on a Fri/Fri/Fri schedule. The patient had gotten dialysis yesterday since it was missed on Friday this week. Pharmacy Service will continue to monitor and adjust dosing as required. Follow-Up Labs Follow-Up Labs: Trough: Vancomycin (random ) Date/Time Labs Ordered Labs to be done on [date and time ordered]: 01/07/25 0600
[2025-01-05] MEDS: PureFlow B 2K Dialysis Soln 1 BAG 6 BAG PF (12:40)
[2025-01-05] MEDS: Heparin 10,000 UNITS/10 ML Vial IV (12:40)
[2025-01-05] MEDS: 0.9% Normal Saline 1,000 ML IV.SOLN. 1000 ML OPERA.SITE (12:41)
[2025-01-05 13:54] LABS: Procalcitonin 2.31 ng/mL (<=0.10)
--- NOTE | 2025-01-05 13:55 | PN.RENAL_ITS ---
Subjective Subjective currently on dialysis, more alert today, less dyspneic after 2L removed on dialysis yesterday Objective Data Objective Data Vital Signs: Vital Signs Temp Pulse Resp BP Pulse Ox O2 Del Method O2 Flow Rate 97.6 F L 75 16 148/54 H 96 Nasal Cannula 3 01/05/25 12:30 01/05/25 13:30 01/05/25 13:08 01/05/25 13:30 01/05/25 13:08 01/05/25 13:08 01/05/25 13:08 FiO2 30 01/04/25 19:05 Oxygen Flow Rate (L/min) 3 Oxygen Delivery Method Nasal Cannula Weight: 48.8 kg Body Mass Index (BMI) 17.2 Intake & Output: Intake and Output for Last 24 Hours 01/03/25 01/04/25 01/05/25 23:59 23:59 23:59 Intake Total 1805 / 1805 550 / 550 Output Total 1800 / 1800 Balance 5 / 5 550 / 550 Lab / Micro Data 01/05/25 05:48 01/05/25 05:48 Labs: Laboratory Results - last 24 hr 01/04/25 02:02: POC Glucose 33 L* 01/04/25 02:04: POC Glucose 37 L* 01/04/25 11:58: POC Glucose 282 H 01/04/25 16:34: POC Glucose 133 H 01/04/25 21:48: POC Glucose 308 H 01/05/25 05:48: WBC 10.5, RBC 3.10 L, Hgb 9.4 L, Hct 29.6 L, MCV 95.5, MCH 30.3, MCHC 31.8 L, RDW Std Deviation 44.2 H, RDW Coeff of Iron 12.9, Plt Count 235, MPV 10.0, Sodium 130 L, Potassium 6.1 H*, Chloride 95 L, Carbon Dioxide 23.6, Anion Gap 11, BUN 39 H, Creatinine 3.67 H, Estim Creat Clear Calc 11.77 L, Est GFR (MDRD) Non-Af 13 L, BUN/Creatinine Ratio 10.7, Glucose 301 H, Hemoglobin A1c 6.6, Calcium 9.2, Phosphorus 4.3, Albumin 3.4, Procalcitonin 2.31 H, Random Vancomycin 15.1 H 01/05/25 06:05: POC Glucose 286 H 01/05/25 11:23: POC Glucose 419 H Micro: Microbiology 01/04/25 11:04 Nasal Secretion MRSA (PCR) - Final 01/04/25 11:04 Mucosa - Nose SARS-CoV-2, Influenza & RSV (PCR) - Final ABG Data ABG results: ABG 01/05/25 12:00 Specimen Type ART Sample Site L Radial pH 7.28 L Bicarbonate Actual 25.6 Total CO2 27 Base Excess -1 O2 Saturation 95 O2 % 30.0 ABG pCO2 55.0 H ABG pO2 87 Demond Test Positive O2 Delivery Device BiPAP Vent Mode Not entered Clinical Comments Physical Exam Const alert and oriented x3 Constitutional Narrative: dyspneic on oxygen Nutritional Appearance: thin Resp no use of accessory muscles and clear to auscultation bilaterally Cardio regular rate GI non-tender and non-distended Auscultation: normoactive bowel sounds Palpation: soft Extremity General Extremity: AV fistula Psych cooperative Assessment & Plan Assessment/Plan (1) End-stage renal disease on hemodialysis: PLAN: HD MWF dialysis today (2) Acute hyperkalemia: PLAN: correct with dialysis med mgmt (3) Acute respiratory failure with hypoxia and hypercarbia: PLAN: BIPAP (4) Anemia: PLAN: JIMMY on dialysis, hgb 9.4g (5) COPD exacerbation: (6) Parapneumonic effusion: PLAN: antibx (7) Pleural effusion on left: (8) Hypertension: QUALIFIERS: Hypertension type: unspecified Qualified Code(s): I10 - Essential (primary) hypertension (9) DM type 1 (diabetes mellitus, type 1): QUALIFIERS: Diabetes mellitus complication status: with kidney complications Diabetes mellitus complication detail: with chronic kidney disease Chronic kidney disease stage: stage 4 (severe) Qualified Code(s): E 10.22 - Type 1 diabetes mellitus with diabetic chronic kidney disease; N18.4 - Chronic kidney disease, stage 4 (severe)
[2025-01-05] MEDS: Vancomycin IV 500 MG/100 ML BAG 100 MG IV (16:14)
[2025-01-05] MEDS: Aspirin E.C. 81 MG Tablet PO (16:17)
[2025-01-05] MEDS: Clopidogrel Bisulfate 75 MG Tablet PO (16:17)
[2025-01-05] MEDS: amLODIPine 10 MG Tablet PO (16:17)
--- NOTE | 2025-01-05 17:03 | PCM.PN.HOSP ---
Reason for Visit Reason for Visit: Diagnoses Anemia, unspecified (01/03/25) Type 1 diabetes mellitus with diabetic chronic kidney disease (01/03/25) Hyperkalemia (01/03/25) Essential (primary) hypertension (01/03/25) Pneumonia, unspecified organism (01/03/25) Chronic obstructive pulmonary disease with (acute) exacerbation (01/03/25) Pleural effusion, not elsewhere classified (01/03/25) Pleural effusion in other conditions classified elsewhere (01/03/25) Acute respiratory failure with hypoxia (01/03/25) Acute respiratory failure with hypercapnia (01/03/25) Chronic respiratory failure with hypoxia (01/03/25) Chronic kidney disease, stage 4 (severe) (01/03/25) End stage renal disease (01/03/25) Dependence on renal dialysis (01/03/25) Objective Data Objective Data Vital Signs: Vital Signs Temp Pulse Resp BP Pulse Ox O2 Del Method O2 Flow Rate 97.8 F 88 20 H 157/57 H 96 Nasal Cannula 3 01/05/25 16:19 01/05/25 16:19 01/05/25 16:19 01/05/25 16:19 01/05/25 16:19 01/05/25 16:19 01/05/25 16:19 FiO2 30 01/05/25 14:33 Oxygen Flow Rate (L/min) 3 Oxygen Delivery Method Nasal Cannula Weight: 102 lb 8.239 oz Body Mass Index (BMI) 16.5 Intake & Output: Intake and Output for Last 24 Hours 01/03/25 01/04/25 01/05/25 23:59 23:59 23:59 Intake Total 1805 / 1805 550 / 550 Output Total 1800 / 1800 1540 / 1540 Balance -990 / -990 Lab / Micro Data 01/05/25 05:48 01/05/25 05:48 Labs: Laboratory Results - last 24 hr 01/04/25 16:34: POC Glucose 133 H 01/04/25 21:48: POC Glucose 308 H 01/05/25 05:48: WBC 10.5, RBC 3.10 L, Hgb 9.4 L, Hct 29.6 L, MCV 95.5, MCH 30.3, MCHC 31.8 L, RDW Std Deviation 44.2 H, RDW Coeff of Iron 12.9, Plt Count 235, MPV 10.0, Sodium 130 L, Potassium 6.1 H*, Chloride 95 L, Carbon Dioxide 23.6, Anion Gap 11, BUN 39 H, Creatinine 3.67 H, Estim Creat Clear Calc 11.77 L, Est GFR (MDRD) Non-Af 13 L, BUN/Creatinine Ratio 10.7, Glucose 301 H, Hemoglobin A1c 6.6, Calcium 9.2, Phosphorus 4.3, Albumin 3.4, Procalcitonin 2.31 H, Random Vancomycin 15.1 H 01/05/25 06:05: POC Glucose 286 H 01/05/25 11:23: POC Glucose 419 H Micro: Microbiology 01/04/25 11:04 Nasal Secretion MRSA (PCR) - Final 01/04/25 11:04 Mucosa - Nose SARS-CoV-2, Influenza & RSV (PCR) - Final ABG Data ABG results: ABG 01/05/25 12:00 Specimen Type ART Sample Site L Radial pH 7.28 L Bicarbonate Actual 25.6 Total CO2 27 Base Excess -1 O2 Saturation 95 O2 % 30.0 ABG pCO2 55.0 H ABG pO2 87 Demond Test Positive O2 Delivery Device BiPAP Vent Mode Not entered Clinical Comments Physical Exam Narrative Seen and examined. Patient shortness of breath is better but she is not wearing BiPAP. She is more awake and alert. She is on hemodialysis Physical exam General: Alert, Oriented x3, Cooperative HEENT: Atraumatic, PERRLA, EOMI, Normocephalic Oral: No Gingival or Mucosal Lesions/ Ulcerations Neck: Supple, No JVD, Negative Carotid Bruits Chest wall/Lungs: Air entry diminished in bilateral lung bases. Mild expiratory rhonchi. Cardiovascular: Regular rate, Regular Rhythm, Normal S1, Normal S2, No M/G/R Abdomen: Bowel Sounds Present, Soft, Non Tender, Non-Distended : On hemodialysis. No dysuria. No renal angle tenderness. No suprapubic tenderness. Extremities: No edema, Capillary Refill Less than 3 Seconds Skin: No rashes, No breakdown Musculoskeletal: No Tenderness to Palpation of Joints or Extremities Neurological: Cranial nerves II-XII grossly intact, DTR 2+/4. No acute focal neurological deficit. Psych/Mental Status: Flat affect. Assessment & Plan Assessment/Plan (1) Acute hyperkalemia: (2) Anemia: (3) Chronic hypoxemic respiratory failure: (4) End-stage renal disease on hemodialysis: (5) Left lower lobe pneumonia: PLAN: Plan This is a 64-year-old female admitted with flulike symptoms that started last Friday along with chills, shortness of breath but denied cough. She has hyperkalemia and is on hemodialysis. She also little drowsy and confused. She has history of COPD and uses oxygen and BiPAP at home. She is also CO2 retainer. Chronic combined respiratory failure. 1. Acute on chronic hypoxemic respiratory failure due to COPD exacerbation?patient on the PCU floor. On BiPAP. On vancomycin and Zosyn. ABG shows respiratory acidosis 7.28/72/69 on BiPAP. Earlier it was 7.24/72. Advised BiPAP 20/06. Previous sputum culture showed Pseudomonas aeruginosa and Staph aureus, MSSA. Repeat sputum culture ordered pulmonary consult. Patient is being managed on scheduled bronchodilator, IV Solu-Medrol, Mucinex, incentive spirometry and Pep. Triple PCR negative. MRSA nasal screen negative. Patient had repeat ABG which shows improvement in pCO2, 7.28/55/87 on BiPAP. Although her pH is 7.28 similar to yesterday but total bicarb in BMP improved to 23. COPD exacerbation from left lower lobe pneumonia MRSA nasal screen is negative. Will discontinue vancomycin. Also there is small left CP angle atelectasis therefore not a major concern for pneumonia. Zosyn narrowed down to IV ceftriaxone. 2. End-stage renal disease?consult Dr. Huerta for assistance with dialysis. Getting hemodialysis 01/05: Hemodialysis as per nephrology recommendation 3. Hyperkalemia?patient treated in the emergency room. Repeat potassium is 5.4 01/05: Serum potassium 6.1. 4. Anemia chronic?H&H 9.2/30%. Platelet count 227 5. Diabetes mellitus type 2 with hypoglycemia, glucose was low 33, 37,during admission and now high Microbiology Past 72 Hours 01/04/25 11:04 Nasal Secretion MRSA (PCR) - Final 01/04/25 11:04 Mucosa - Nose SARS-CoV-2, Influenza & RSV (PCR) - Final Laboratory Results 01/04/25 21:48: POC Glucose 308 H 01/05/25 05:48: WBC 10.5, RBC 3.10 L, Hgb 9.4 L, Hct 29.6 L, MCV 95.5, MCH 30.3, MCHC 31.8 L, RDW Std Deviation 44.2 H, RDW Coeff of Iron 12.9, Plt Count 235, MPV 10.0, Sodium 130 L, Potassium 6.1 H*, Chloride 95 L, Carbon Dioxide 23.6, Anion Gap 11, BUN 39 H, Creatinine 3.67 H, Estim Creat Clear Calc 11.77 L, Est GFR (MDRD) Non-Af 13 L, BUN/Creatinine Ratio 10.7, Glucose 301 H, Hemoglobin A1c 6.6, Calcium 9.2, Phosphorus 4.3, Albumin 3.4, Procalcitonin 2.31 H, Random Vancomycin 15.1 H 01/05/25 06:05: POC Glucose 286 H 01/05/25 11:23: POC Glucose 419 H 01/05/25 12:00: Specimen Type ART, Sample Site L Radial, pH 7.28 L, Bicarbonate Actual 25.6, Total CO2 27, Base Excess -1, O2 Saturation 95, O2 % 30.0, ABG pCO2 55.0 H, ABG pO2 87, Demond Test Positive, O2 Delivery Device BiPAP, Vent Mode Not entered, Clinical Comments Clinical Impression(s) from Imaging Studies Chest X-Ray 01/03/25 21:42 IMPRESSION: Left basilar effusion/infiltrate. Reading Location: [facility] Charges/Coding Visit Charges Inpatient E&M: 50318 Subs Hosp L2
[2025-01-05] MEDS: ROFLUMILAST 500 MCG TABLET PO (17:06)
[2025-01-05 17:12] LABS: Bedside Glucose 292 mg/dL (74-106)
[2025-01-05] MEDS: Metoprolol Tartrate 50 MG Tablet PO (21:11)
[2025-01-05] MEDS: Gabapentin 100 MG Capsule 200 MG PO (21:11)
[2025-01-05] MEDS: Atorvastatin Calcium 20 MG Tablet PO (21:11)
[2025-01-05] MEDS: Lisinopril 2.5 MG Tablet PO (21:11)
[2025-01-05] MEDS: Sodium Chloride 0.65% 1 SPRAY SPRAY.BTL NASAL (22:39)
[2025-01-05] MEDS: ALPRAZolam 0.25 MG Tablet PO (22:39)
[2025-01-05 23:49] LABS: Bedside Glucose 338 mg/dL (74-106)
--- NOTE | 2025-01-06 02:13 | CPS ---
Pt declined bipap carlos a, says she hates it and no, I'm good thanks'
[2025-01-06 03:25] VITALS: BP 139/51; PULSE 66; RESP 16; TEMP 36.4; O2SAT 98
[2025-01-06 06:20] VITALS: BP 146/53; PULSE 67; RESP 16; TEMP 36.1; O2SAT 97
[2025-01-06 06:25] VITALS: BP 146/53; PULSE 67
[2025-01-06] MEDS: hydrALAZINE 25 MG Tablet PO (06:25)
[2025-01-06] MEDS: 0.9% Saline Lock 10 ML Syringe IV (06:26)
[2025-01-06] MEDS: Insulin Lispro 100 UNIT/ML INSULN.PEN SC ×2 (06:27→11:25)
[2025-01-06 06:42] LABS: Absolute Lymphocyte Count 0.66 X10^3/uL (0.83-4.51); Absolute Neutrophil Count 9.7 X10^3/uL (2.0-7.7); Basophil# 0.01 X10^3/uL; Basophil% 0.1 % (0-1); Eosinophil# 0.01 X10^3/uL; Eosinophils% 0.1 % (0-5); Hematocrit 28.8 % (37-47); Hemoglobin 9.1 g/dL (12.0-15.0); Lymphocyte # 0.66 X10^3/ul (0.83-4.51); Mean Corp Hgb Conc 31.6 g/dL (32-36); Mean Corpuscular Hgb 30.4 pg (27.0-32.0); Mean Corpuscular Volume 96.3 fL (81-99); Mean Platelet Vol. 9.8 fl (6.2-12.0); Monocyte# 0.53 X10^3/uL; Monocyte% 4.8 % (0-10); NRBC Flagged by Analyzer 0 % (0-5); Neutrophil # 9.67 X10^3/uL (2.7-7.7); Platelet Count 229 K/mm3 (150-450); Red Blood Count 2.99 M/mm3 (4.2-5.4)
[2025-01-06 06:58] LABS: Bedside Glucose 309 mg/dL (74-106)
[2025-01-06 07:24] LABS: Anion Gap 12 (5-15); BUN 42 mg/dL (4-19); Calcium,Total 8.9 mg/dL (7.6-11.0); Carbon Dioxide 21.1 mmol/L (21.0-32.0); Chloride 101 mmol/L (98-108); Creatinine, Serum 3.23 mg/dL (0.70-1.20); EST Glomerular Filtration Rate 15 (>60); Estimated Creatinine Clearance 12.75 ml/min (50-250); Glucose 337 mg/dL (70-99); Potassium 5.6 mmol/L (3.3-5.1); Sodium Level 134 mmol/L (133-145)
[2025-01-06] MEDS: Gabapentin 100 MG Capsule 200 MG PO (08:25)
[2025-01-06 08:27] VITALS: BP 143/54; PULSE 65; RESP 18; TEMP 36.4; O2SAT 99
[2025-01-06] MEDS: Ceftriaxone 1 GM/50 ML BAG IV (08:30)
[2025-01-06] MEDS: SEVELAMER CARBONATE 800 MG TABLET PO ×2 (08:30→12:29)
[2025-01-06] MEDS: busPIRone 5 MG Tablet 7.5 MG PO (08:31)
[2025-01-06 08:32] VITALS: PULSE 65
[2025-01-06] MEDS: Lisinopril 2.5 MG Tablet PO (08:32)
[2025-01-06] MEDS: ROFLUMILAST 500 MCG TABLET PO (08:32)
[2025-01-06] MEDS: Metoprolol Tartrate 50 MG Tablet PO (08:32)
[2025-01-06] MEDS: Aspirin E.C. 81 MG Tablet PO (08:45)
[2025-01-06] MEDS: Clopidogrel Bisulfate 75 MG Tablet PO (08:45)
--- NOTE | 2025-01-06 08:45 | PCM.PN.REN ---
Subjective Subjective breathing better, wants to go home. Sugars high on steroids for COPD Objective Data Objective Data Vital Signs: Vital Signs Temp Pulse Resp BP Pulse Ox O2 Del Method O2 Flow Rate 97.6 F L 65 18 143/54 H 99 Room Air 2 01/06/25 08:27 01/06/25 08:32 01/06/25 08:27 01/06/25 08:27 01/06/25 08:27 01/06/25 08:27 01/06/25 08:27 FiO2 30 01/05/25 14:33 Oxygen Flow Rate (L/min) 2 Oxygen Delivery Method Room Air Weight: 46.5 kg Body Mass Index (BMI) 16.5 Intake & Output: Intake and Output for Last 24 Hours 01/04/25 01/05/25 01/06/25 23:59 23:59 23:59 Intake Total 1805 / 1805 750 / 750 0 / 0 Output Total 1800 / 1800 1540 / 1540 0 / 0 Balance 5 / 5 -790 / -790 0 / 0 Lab / Micro Data 01/06/25 06:10 01/06/25 06:10 Labs: Laboratory Results - last 24 hr 01/05/25 05:48: WBC 10.5, RBC 3.10 L, Hgb 9.4 L, Hct 29.6 L, MCV 95.5, MCH 30.3, MCHC 31.8 L, RDW Std Deviation 44.2 H, RDW Coeff of Iron 12.9, Plt Count 235, MPV 10.0, Sodium 130 L, Potassium 6.1 H*, Chloride 95 L, Carbon Dioxide 23.6, Anion Gap 11, BUN 39 H, Creatinine 3.67 H, Estim Creat Clear Calc 11.77 L, Est GFR (MDRD) Non-Af 13 L, BUN/Creatinine Ratio 10.7, Glucose 301 H, Calcium 9.2, Phosphorus 4.3, Albumin 3.4, Procalcitonin 2.31 H 01/05/25 11:23: POC Glucose 419 H 01/05/25 16:36: POC Glucose 292 H 01/05/25 21:08: POC Glucose 338 H 01/06/25 06:10: WBC 11.0, RBC 2.99 L, Hgb 9.1 L, Hct 28.8 L, MCV 96.3, MCH 30.4, MCHC 31.6 L, RDW Std Deviation 45.0 H, RDW Coeff of Iron 13.0, Plt Count 229, MPV 9.8, Immature Gran % (Auto) 1.000 H, Neut % (Auto) 88.0 H, Lymph % (Auto) 6.0 L, [place] % (Auto) 4.8, Eos % (Auto) 0.1, Baso % (Auto) 0.1, Absolute Neuts (auto) 9.7 H, Absolute Lymphs (auto) 0.66 L, Nucleated RBC % 0, Sodium 134, Potassium 5.6 H, Chloride 101, Carbon Dioxide 21.1, Anion Gap 12, BUN 42 H, Creatinine 3.23 H, Estim Creat Clear Calc 12.75 L, Est GFR (MDRD) Non-Af 15 L, BUN/Creatinine Ratio 13.0, Glucose 337 H, Calcium 8.9 01/06/25 06:23: POC Glucose 309 H Micro: Microbiology 01/05/25 15:33 Mucosa - Nose Respiratory Panel (PCR) - Final 01/04/25 11:04 Nasal Secretion MRSA (PCR) - Final 01/04/25 11:04 Mucosa - Nose SARS-CoV-2, Influenza & RSV (PCR) - Final ABG Data ABG results: ABG 01/05/25 12:00 Specimen Type ART Sample Site L Radial pH 7.28 L Bicarbonate Actual 25.6 Total CO2 27 Base Excess -1 O2 Saturation 95 O2 % 30.0 ABG pCO2 55.0 H ABG pO2 87 Demond Test Positive O2 Delivery Device BiPAP Vent Mode Not entered Clinical Comments Physical Exam Const alert and oriented x3 Resp clear to auscultation bilaterally Auscultation: diminished lung sounds GI non-tender and non-distended Auscultation: normoactive bowel sounds Palpation: soft Extremity General Extremity: AV fistula Neuro Sensorium / Orientation: awake and alert Psych cooperative Assessment & Plan Assessment/Plan (1) End-stage renal disease on hemodialysis: PLAN: HD MWF (2) Acute hyperkalemia: PLAN: due to metabolic acidosis, insulin insufficiency (3) Acute respiratory failure with hypoxia and hypercarbia: PLAN: BIPAP as needed (4) Anemia: PLAN: JIMMY on dialysis, hgb 9.4g (5) COPD exacerbation: PLAN: on steroids (6) Parapneumonic effusion: PLAN: antibx (7) Hypertension: QUALIFIERS: Hypertension type: unspecified Qualified Code(s): I10 - Essential (primary) hypertension (8) DM type 1 (diabetes mellitus, type 1): QUALIFIERS: Diabetes mellitus complication status: with kidney complications Diabetes mellitus complication detail: with chronic kidney disease Chronic kidney disease stage: stage 4 (severe) Qualified Code(s): E10.22 - Type 1 diabetes mellitus with diabetic chronic kidney disease; N18.4 - Chronic kidney disease, stage 4 (severe) PLAN: insulin
[2025-01-06] MEDS: ALPRAZolam 0.25 MG Tablet PO (09:56)
[2025-01-06 11:19] VITALS: O2SAT 92; O2SAT 96
--- NOTE | 2025-01-06 11:19 | DCINST_ITS ---
Discharge Instructions DC O2, CPAP, BIPAP needs Home O2 Discharge instructions: Yes Type of respiratory needs?: Oxygen Oxygen frequency: Continuous Continuous oxygen liters per minute: 3 Follow Up Care Test Results: Test results from this visit will be discussed in further detail at your follow- up appointment, if applicable. Discharge Plan Admission Admit Date/Time: 01/03/25 23:39 Attending Provider: He Cat Primary Care Provider: Bird Lujan Consulting Providers: Christy Huerta; Alex Hinojosa Discharge Orders/Prescriptions Prescriptions: New cefdinir 300 mg capsule 300 mg PO BID 5 Days Qty: 10 0RF prednisone 20 mg tablet 40 mg PO DAILY 5 Days Qty: 10 0RF pseudoephedrine-guaifenesin [Mucinex D] 60-600 mg tablet extended release 12 hr 1 tab PO BID Qty: 14 0RF Continued aspirin 81 mg tablet,delayed release (DR/EC) 81 mg PO DAILY (DME) FreeStyle Eileen 2 [place] Misc See Rx Instructions .ROUTE .MEDSUPPLY Qty: 1 0RF Rx Instructions: As directed gabapentin 800 mg tablet 200 mg PO BID oxygen See Rx Instructions NASAL .COMPLEX Rx Instructions: 3L NASALLY; 3 l hydralazine 25 mg tablet 25 mg PO TID 30 Days Qty: 90 3RF lisinopril 2.5 mg tablet 2.5 mg PO BID simvastatin 40 MG tablet 40 mg PO QHS albuterol sulfate 2.5 MG/3 ML solution for nebulization 2.5 mg INHALATION Q2H PRN PRN (Reason: dyspnea, wheezing) Qty: 1 0RF (DME) pen needle, diabetic 1 EACH needle 1 ea ACHS Qty: 1 0RF amlodipine [Norvasc] 10 mg tablet 10 mg PO DAILY 30 Days Qty: 30 0RF sevelamer carbonate 800 mg tablet 800 mg PO TID buspirone 7.5 mg tablet 7.5 mg PO DAILY Patient Comments: PT ONLY WANTS TO TAKE ONCE PER DAY insulin lispro [Humalog U-100 Insulin] 100 unit/mL solution 60 unit continuous subcutaneous infusion .continuous Qty: 54 1RF Rx Instructions: via insulin pump Advised to increase the insulin pump (DME) FreeStyle Precision Jeff Strips Strip See Rx Instructions .Route Qty: 25 6RF Rx Instructions: As directed (DME) FreeStyle Eileen 2 Sensor Kit See Rx Instructions .ROUTE .MEDSUPPLY Qty: 6 1RF Rx Instructions: 1 sensor q 14 days ipratropium-albuterol 0.5 mg-3 mg(2.5 mg base)/3 mL solution for nebulization 3 ml inhalation Q4H PRN PRN (Reason: SOB &/OR WHEEZING) Qty: 180 6RF (DME) Omnipod 5 G6 Pods (Gen 5) Cartridge See Rx Instructions .Route Qty: 10 5RF Rx Instructions: 1 pod 72 hours Prolia 60 mg/mL syringe 60 mg subcut [id number] Qty: 1 1RF Patient Comments: Next injection is 01/06/2025 clopidogrel 75 mg tablet 75 mg PO DAILY Qty: 90 3RF (DME) Dexcom G6 Sensor Device See Rx Instructions .Route Qty: 3 5RF Rx Instructions: 1 sensor q 10 days nitroglycerin 0.4 mg tablet, sublingual 0.4 mg SUBLINGUAL Q5-15M PRN (Reason: chest pain) Qty: 25 44RF Rx Instructions: until response; do not exceed 3 doses per episode metoprolol tartrate 50 mg tablet 50 mg PO BID Qty: 180 3RF (DME) Dexcom G6 Transmitter Device See Rx Instructions .Route Qty: 2 1RF Rx Instructions: 1 transmitter q 90 days roflumilast [Daliresp] 500 mcg tablet 500 mcg PO DAILY Qty: 30 11RF albuterol sulfate 90 mcg/actuation HFA aerosol inhaler 2 puff INHALATION Q6H PRN PRN (Reason: Cough) Qty: 8.5 2RF Trelegy Ellipta 200-62.5-25 mcg blister with device 1 inh inhalation DAILY Qty: 3 0RF Discontinued potassium gluconate 500 mg (83 mg) tablet 500 mg PO TID Referrals / Follow Up: Christy Huerta DO [Med Staff - Consulting] - Within 1 Month Bird Lujan MD [Primary Care Provider] - Terrance Alva DO [Med Staff - Active Staff] - Within 2 Weeks Viraj No MD [Med Staff - Courtesy Staff] - Within 1 Month Disposition Disposition (needs filled in before D/C Order can be placed): Home, Self Care
[2025-01-06] MEDS: Insulin Glargine-YFGN 100 UNIT/ML Pen 10 UNIT SC (11:25)
--- NOTE | 2025-01-06 11:29 | DS.PCM_ITS ---
Providers Date of Admission: 01/03/25 Date of Discharge: 01/06/25 Primary Care Physician: Dr. Bird Lujan MD Consultations 01/04/25 00:35 Consult: Nephrology Routine Consulting Provider: Christy Huerta Reason for Consult: DIALYSIS EMERGENT Consult: No Notified: Yes Date Notified: 01/03/25 Time Notified: 06:40 Method of Notification: Text 01/04/25 01:49 Consult: Onc/Wound/grain merchandising manager Routine Comment: Reason for Consult:: Wound to right Great toe; Diabetic patient 01/04/25 16:13 Consult: Cold Work Operator / Pulmonary Medicine Routine Consulting Provider: Intensivists/Pulmonary Med Reason for Consult: Acute on chronic combined respiratory failure. Encephalopathy. High pCO2 EMERGENT Consult: No Notified: Yes Date Notified: 01/04/25 Time Notified: 16:13 Method of Notification: Text Reason For Visit: PNEUMONIA, HYPERKALEMIA Diagnosis Discharge Diagnosis (1) End-stage renal disease on hemodialysis: Status: Acute Code(s): N18.6 - End stage renal disease; Z99.2 - Dependence on renal dialysis (2) Acute hyperkalemia: Status: Acute Code(s): E87.5 - Hyperkalemia (3) Acute respiratory failure with hypoxia and hypercarbia: Status: Acute Code(s): J96.01 - Acute respiratory failure with hypoxia; J96.02 - Acute respiratory failure with hypercapnia (4) Anemia: Status: Acute Code(s): D64.9 - Anemia, unspecified (5) COPD exacerbation: Status: Chronic Code(s): J44.1 - Chronic obstructive pulmonary disease with (acute) exacerbation (6) Parapneumonic effusion: Status: Acute Code(s): J18.9 - Pneumonia, unspecified organism; J91.8 - Pleural effusion in other conditions classified elsewhere (7) Hypertension: Status: Chronic Code(s): I10 - Essential (primary) hypertension Qualifiers: Hypertension type: unspecified Qualified Code(s): I10 - Essential (primary) hypertension (8) DM type 1 (diabetes mellitus, type 1): Status: Chronic Qualifiers: Chronic kidney disease stage: stage 4 (severe) Diabetes mellitus complication detail: with chronic kidney disease Diabetes mellitus complication status: with kidney complications Qualified Code(s): E10.22 - Type 1 diabetes mellitus with diabetic chronic kidney disease; N18.4 - Chronic kidney disease, stage 4 (severe) Plan This is a 64-year-old female admitted with flulike symptoms that started last Friday along with chills, shortness of breath but denied cough. She has hyperkalemia and is on hemodialysis. She also little drowsy and confused. She has history of COPD and uses oxygen and BiPAP at home. She is also CO2 retainer. Chronic combined respiratory failure. 1. Acute on chronic hypoxemic respiratory failure due to COPD exacerbation?patient on the PCU floor. On BiPAP. On vancomycin and Zosyn. ABG shows respiratory acidosis 7.28/72/69 on BiPAP. Earlier it was 7.24/72. Advised BiPAP 20/06. Previous sputum culture showed Pseudomonas aeruginosa and Staph aureus, MSSA. Repeat sputum culture ordered pulmonary consult. Patient is being managed on scheduled bronchodilator, IV Solu-Medrol, Mucinex, incentive spirometry and Pep. Triple PCR negative. MRSA nasal screen negative. Patient had repeat ABG which shows improvement in pCO2, 7.28/55/87 on BiPAP. Although her pH is 7.28 similar to yesterday but total bicarb in BMP improved to 23. /: Patient oxygen studies but better than her baseline 3 L/min. Prescription given for prednisone 40 mg daily for 5 days, cefdinir to complete total of 7 days and Mucinex DM. Advised follow-up in pulmonary clinic in 2 weeks. COPD exacerbation from left lower lobe pneumonia MRSA nasal screen is negative. Will discontinue vancomycin. Also there is small left CP angle atelectasis therefore not a major concern for pneumonia. Zosyn narrowed down to IV ceftriaxone. 2. End-stage renal disease?consult Dr. Huerta for assistance with dialysis. Getting hemodialysis 01/05: Hemodialysis as per nephrology recommendation 01/06: Patient was evaluated by director learning and development. Good for discharge. 3. Hyperkalemia?patient treated in the emergency room. Repeat potassium is 5.4 01/05: Serum potassium 6.1. 4. Anemia chronic?H&H 9.2/30%. Platelet count 227 5. Diabetes mellitus type 2 with hypoglycemia, glucose was low 33, 37,during admission and now high Blood sugars are high but patient has insulin pump at home. She states her sugars are good at home. She follows fruit thinner machine operator Dr. Viraj No. Advised to increase her insulin dose as the patient will be on burst therapy of prednisone for 5 days. Clinical Impression(s) from Imaging Studies Chest X-Ray 01/03/25 21:42 IMPRESSION: Left basilar effusion/infiltrate. [facility] Past 72 Hours 01/05/25 15:33 Mucosa - Nose Respiratory Panel (PCR) - Final 01/04/25 11:04 Nasal Secretion MRSA (PCR) - Final 01/04/25 11:04 Mucosa - Nose SARS-CoV-2, Influenza & RSV (PCR) - Final Laboratory Results 01/05/25 16:36: POC Glucose 292 H 01/05/25 21:08: POC Glucose 338 H 01/06/25 06:10: WBC 11.0, RBC 2.99 L, Hgb 9.1 L, Hct 28.8 L, MCV 96.3, MCH 30.4, MCHC 31.6 L, RDW Std Deviation 45.0 H, RDW Coeff of Iron 13.0, Plt Count 229, MPV 9.8, Immature Gran % (Auto) 1.000 H, Neut % (Auto) 88.0 H, Lymph % (Auto) 6.0 L, [place] % (Auto) 4.8, Eos % (Auto) 0.1, Baso % (Auto) 0.1, Absolute Neuts (auto) 9.7 H, Absolute Lymphs (auto) 0.66 L, Nucleated RBC % 0, Sodium 134, Potassium 5.6 H, Chloride 101, Carbon Dioxide 21.1, Anion Gap 12, BUN 42 H, Creatinine 3.23 H, Estim Creat Clear Calc 12.75 L, Est GFR (MDRD) Non-Af 15 L, BUN/Creatinine Ratio 13.0, Glucose 337 H, Calcium 8.9 01/06/25 06:23: POC Glucose 309 H 01/06/25 11:23: POC Glucose 374 H Medications at Discharge Home Medications simvastatin 40 mg tablet 40 mg PO QHS cholesterol 06/21/18 albuterol sulfate 2.5 mg/3 mL (0.083 %) solution for nebulization 2.5 mg (3 mL) inhalation Q2H PRN PRN dyspnea, wheezing ##1 06/23/18 aspirin 81 mg tablet,delayed release 81 mg PO DAILY heart health 12/31/19 pen needle, diabetic 32 gauge x ##1 08/29/20 flash glucose scanning reader (FreeStyle Eileen 2 [place]) #1 ea 11/20/20 blood sugar diagnostic (FreeStyle Precision Jeff Strips) #25 ea 08/26/23 FreeStyle Eileen 2 Sensor (flash glucose sensor) #6 ea 08/27/23 oxygen See Rx Instructions NASAL .COMPLEX O2 therapy 12/03/23 ipratropium 0.5 mg-albuterol 3 mg (2.5 mg base)/3 mL nebulization soln 3 ml inhalation Q4H PRN PRN SOB &/OR WHEEZING #180 mL 12/29/23 insulin pump cart,automated,BT (Omnipod 5 G6 Pods (Gen 5) subcutaneous cartridge) #10 ea 05/31/24 denosumab 60 mg/mL subcutaneous syringe (Prolia) 60 mg subcut [id number] bone health #1 mL 06/10/24 clopidogrel 75 mg tablet 75 mg PO DAILY anti platelet #90 tabs 07/26/24 blood-glucose sensor (Dexcom G6 Sensor device) #3 ea 10/05/24 gabapentin 800 mg tablet 200 mg PO BID neuropathy 10/07/24 nitroglycerin 0.4 mg sublingual tablet 0.4 mg sublingual Q5-15M PRN chest pain #25 tabs 10/21/24 lisinopril 2.5 mg tablet 2.5 mg PO BID Blood pressure 11/04/24 metoprolol tartrate 50 mg tablet 50 mg PO BID blood pressure #180 tabs 11/11/24 blood-glucose transmitter (Dexcom G6 Transmitter device) #2 ea 11/15/24 amlodipine 10 mg tablet (Norvasc) 10 mg PO DAILY blood pressure 30 days #30 tabs 11/20/24 roflumilast 500 mcg tablet (Daliresp) 500 mcg PO DAILY breathing #30 tabs 12/03/24 buspirone 7.5 mg tablet 7.5 mg PO DAILY Antianxiety 12/14/24 sevelamer carbonate 800 mg tablet 800 mg PO TID To lower Phosphorus 12/14/24 hydralazine 25 mg tablet 25 mg PO TID blood pressure 30 days #90 tabs 12/16/24 albuterol sulfate 90 mcg/actuation aerosol inhaler 2 puff inhalation Q6H PRN PRN Cough #8.5 grams 12/30/24 fluticasone fur. 200 mcg-umeclid 62.5 mcg-vilant 25 mcg inhalat.powder (Trelegy Ellipta) 1 inh inhalation DAILY breathing #3 ea 12/30/24 cefdinir 300 mg capsule 300 mg PO BID 5 days #10 caps 01/06/25 insulin lispro 100 unit/mL subcutaneous solution (Humalog U-100 Insulin) 60 unit (0.6 mL) continuous subcutaneous infusion .continuous #54 mL 01/06/25 prednisone 20 mg tablet 40 mg (2 x 20 mg) PO DAILY 5 days #10 tabs 01/06/25 pseudoephedrine-guaifenesin ER 60 mg-600 mg tablet,extend release 12hr (Mucinex D) 1 tab PO BID cold symptoms #14 tabs 01/06/25 Physical Exam Narrative Seen and examined. She is more awake and alert. Acute encephalopathy has resolved. She is on hemodialysis Physical exam General: Alert, Oriented x3, Cooperative HEENT: Atraumatic, PERRLA, EOMI, Normocephalic Oral: No Gingival or Mucosal Lesions/ Ulcerations Neck: Supple, No JVD, Negative Carotid Bruits Chest wall/Lungs: Air entry diminished in bilateral lung bases. Mild expiratory rhonchi. Cardiovascular: Regular rate, Regular Rhythm, Normal S1, Normal S2, No M/G/R Abdomen: Bowel Sounds Present, Soft, Non Tender, Non-Distended : On hemodialysis. No dysuria. No renal angle tenderness. No suprapubic tenderness. Extremities: No edema, Capillary Refill Less than 3 Seconds Skin: No rashes, No breakdown Musculoskeletal: No Tenderness to Palpation of Joints or Extremities Neurological: Cranial nerves II-XII grossly intact, DTR 2+/4. No acute focal neurological deficit. Psych/Mental Status: Flat affect. Weight / BMI Weight Weight: 102 lb 8.239 oz Body Mass Index (BMI) 16.5 ABG / Lab / Microbiology Data 01/06/25 06:10 01/06/25 06:10 Laboratory: Laboratory Results - last 24 hr 01/05/25 16:36: POC Glucose 292 H 01/05/25 21:08: POC Glucose 338 H 01/06/25 06:10: WBC 11.0, RBC 2.99 L, Hgb 9.1 L, Hct 28.8 L, MCV 96.3, MCH 30.4, MCHC 31.6 L, RDW Std Deviation 45.0 H, RDW Coeff of Iron 13.0, Plt Count 229, MPV 9.8, Immature Gran % (Auto) 1.000 H, Neut % (Auto) 88.0 H, Lymph % (Auto) 6.0 L, [place] % (Auto) 4.8, Eos % (Auto) 0.1, Baso % (Auto) 0.1, Absolute Neuts (auto) 9.7 H, Absolute Lymphs (auto) 0.66 L, Nucleated RBC % 0, Sodium 134, Potassium 5.6 H, Chloride 101, Carbon Dioxide 21.1, Anion Gap 12, BUN 42 H, Creatinine 3.23 H, Estim Creat Clear Calc 12.75 L, Est GFR (MDRD) Non-Af 15 L, BUN/Creatinine Ratio 13.0, Glucose 337 H, Calcium 8.9 01/06/25 06:23: POC Glucose 309 H 01/06/25 11:23: POC Glucose 374 H Microbiology: Microbiology 01/05/25 15:33 Mucosa - Nose Respiratory Panel (PCR) - Final 01/04/25 11:04 Nasal Secretion MRSA (PCR) - Final 01/04/25 11:04 Mucosa - Nose SARS-CoV-2, Influenza & RSV (PCR) - Final ABG: ABG 01/05/25 12:00 Specimen Type ART Sample Site L Radial pH 7.28 L Bicarbonate Actual 25.6 Total CO2 27 Base Excess -1 O2 Saturation 95 O2 % 30.0 ABG pCO2 55.0 H ABG pO2 87 Demond Test Positive O2 Delivery Device BiPAP Vent Mode Not entered Clinical Comments D/C Instructions DC O2, CPAP, BIPAP Needs PSN CPAP & BiPAP: BiPAP & CPAP Settings per PSN Mode BiPAP 01/04/25 13:30 Bipap Delivery Device Face Mask 01/05/25 14:33 BiPAP Inspiratory Pressure 18 01/05/25 14:33 BiPAP Expiratory Pressure 8 01/05/25 14:33 BiPAP Rate 16 01/05/25 14:33 Fraction of Inspired Oxygen ( 30 01/05/25 14:33 FIO2) Home O2 Discharge instructions: Yes Type of respiratory needs?: Oxygen Oxygen frequency: Continuous Continuous oxygen liters per minute: 3 DC home with Oxygen: Yes Home O2 MD Review: I have reviewed the oxygen testing, and the patient qualifies for home oxygen equipment and portability. The patient is mobile in the home and the community. Meaningful Use Info Meaningful Use Meaningful Use Diagnoses (Choose all that apply): None applicable Ischemic Stroke Statin Dosing Therapy Reference: STATIN DOSE THERAPY REFERENCE: * Patients > 75 years receive moderate or high dose statin therapy. * Patients 75 years or YOUNGER should receive HIGH intensity statin dose unless contraindicated. You will be required to document reason for non-treatment if statin daily dose does not meet guidelines. HIGH DOSE STATIN THERAPY DAILY Atorvastatin > than or = to 40 mg Rosuvastatin > than or = to 20 mg Amlodipine + Atorvastatin > than or = to 2.5/40 mg Ezetimibe + Simvastatin 10/80 mg Simvastatin 80mg Discharge Plan Admission Admit Date/Time: 01/03/25 23:39 Primary Reason for Your Visit: COPD exacerbation. Pneumonia Attending Provider: He Cat Primary Care Provider: Bird Lujan Consulting Providers: Christy Huerta; Alex Hinojosa Instructions Additional Instructions / Restrictions: Continue incentive spirometry and PEP for 1 week Advised to wear BiPAP at night with oxygen supplementation. On 3 L of home oxygen through nasal cannula on baseline during daytime Discharge Orders/Prescriptions Prescriptions: New cefdinir 300 mg capsule 300 mg PO BID 5 Days Qty: 10 0RF prednisone 20 mg tablet 40 mg PO DAILY 5 Days Qty: 10 0RF pseudoephedrine-guaifenesin [Mucinex D] 60-600 mg tablet extended release 12 hr 1 tab PO BID Qty: 14 0RF Continued aspirin 81 mg tablet,delayed release (DR/EC) 81 mg PO DAILY (DME) FreeStyle Eileen 2 [place] [facility] [place] Rx Instructions .ROUTE .MEDSUPPLY Qty: 1 0RF Rx Instructions: As directed gabapentin 800 mg tablet 200 mg PO BID oxygen See Rx Instructions NASAL .COMPLEX Rx Instructions: 3L NASALLY; 3 l hydralazine 25 mg tablet 25 mg PO TID 30 Days Qty: 90 3RF lisinopril 2.5 mg tablet 2.5 mg PO BID simvastatin 40 MG tablet 40 mg PO QHS albuterol sulfate 2.5 MG/3 ML solution for nebulization 2.5 mg INHALATION Q2H PRN PRN (Reason: dyspnea, wheezing) Qty: 1 0RF (DME) pen needle, diabetic 1 EACH needle 1 ea MC ACHS Qty: 1 0RF amlodipine [Norvasc] 10 mg tablet 10 mg PO DAILY 30 Days Qty: 30 0RF sevelamer carbonate 800 mg tablet 800 mg PO TID buspirone 7.5 mg tablet 7.5 mg PO DAILY Patient Comments: PT ONLY WANTS TO TAKE ONCE PER DAY insulin lispro [Humalog U-100 Insulin] 100 unit/mL solution 60 unit continuous subcutaneous infusion .continuous Qty: 54 1RF Rx Instructions: via insulin pump Advised to increase the [place] [place] FreeStyle Precision Jeff Strips Strip See Rx Instructions .Route Qty: 25 6RF Rx Instructions: As directed [place] [place] FreeStyle Eileen 2 Sensor Kit See Rx Instructions .ROUTE .MEDSUPPLY Qty: 6 1RF Rx Instructions: 1 sensor q 14 days ipratropium-albuterol 0.5 mg-3 mg(2.5 mg base)/3 mL solution for nebulization 3 ml inhalation Q4H PRN PRN (Reason: SOB &/OR WHEEZING) Qty: 180 6RF (DME) Omnipod 5 G6 Pods (Gen 5) Cartridge See Rx Instructions .Route Qty: 10 5RF Rx Instructions: 1 pod 72 hours Prolia 60 mg/mL syringe 60 mg subcut [id number] Qty: 1 1RF Patient Comments: Next injection is 01/06/2025 clopidogrel 75 mg tablet 75 mg PO DAILY Qty: 90 3RF (DME) Dexcom G6 Sensor Device See Rx Instructions .Route Qty: 3 5RF Rx Instructions: 1 sensor q 10 days nitroglycerin 0.4 mg tablet, sublingual 0.4 mg SUBLINGUAL Q5-15M PRN (Reason: chest pain) Qty: 25 44RF Rx Instructions: until response; do not exceed 3 doses per episode metoprolol tartrate 50 mg tablet 50 mg PO BID Qty: 180 3RF (DME) Dexcom G6 Transmitter Device See Rx Instructions .Route Qty: 2 1RF Rx Instructions: 1 transmitter q 90 days roflumilast [Daliresp] 500 mcg tablet 500 mcg PO DAILY Qty: 30 11RF albuterol sulfate 90 mcg/actuation HFA aerosol inhaler 2 puff INHALATION Q6H PRN PRN (Reason: Cough) Qty: 8.5 2RF Trelegy Ellipta 200-62.5-25 mcg blister with device 1 inh inhalation DAILY Qty: 3 0RF Discontinued potassium gluconate 500 mg (83 mg) tablet 500 mg PO TID Referrals / Follow Up: Christy Huerta DO [Med Staff - Consulting] - Within 1 Month Bird Lujan MD [Primary Care Provider] - 01/13/25 11:20 am Terrance Alva DO [Med Staff - Active Staff] - 01/25/25 12:45 pm (Please bring Bipap to appointment to discuss settings ) Viraj No MD [Med Staff - Courtesy Staff] - 01/27/25 8:45 am (Appointment is with Brenda Medrano) Disposition Disposition (needs filled in before D/C Order can be placed): Home, Self Care Charges/Coding Visit Charges Inpatient E&M: 05832 Disch Hosp >30min
[2025-01-06 11:47] LABS: Bedside Glucose 374 mg/dL (74-106)
--- NOTE | 2025-01-06 12:40 | CASEMGMT ---
Patient has order for discharge. Patient is maintaining on home oxygen of 3lpm. RN CM in to discuss needs at discharge, at bedside. Patient has portable oxygen for at discharge. Patient states that she does not feel her bipap at home is as strong as bipap at [facility]. RN CM encourage patient to take bipap with her to next pulmonary appt on 01/25 and discuss with figurine maker. Patient and voiced understanding and had no further questions or concerns.
== END 2025-01-06 13:25 | disposition home or self-care (01) | DRG 193 ==
LOC: ED 23:03 → PCU 01-04 00:10
PROVIDERS: Internal Medicine Critical Care Medicine; Internal Medicine Nephrology; Admitting Provider Family Medicine; Emergency Provider Emergency Medicine; PCP Family Medicine; Visit Provider Internal Medicine
DX: J18.9 Pneumonia, unspecified organism (principal); N18.6 End stage renal disease; J96.22 Acute and chronic respiratory failure with hypercapnia; J96.21 Acute and chronic respiratory failure with hypoxia; I12.0 Hypertensive chronic kidney disease with stage 5 chronic kidney disease or end stage renal disease; E87.29 Other acidosis; J44.0 Chronic obstructive pulmonary disease with (acute) lower respiratory infection; J44.1 Chronic obstructive pulmonary disease with (acute) exacerbation; J90 Pleural effusion, not elsewhere classified; J91.8 Pleural effusion in other conditions classified elsewhere; D63.1 Anemia in chronic kidney disease; E10.22 Type 1 diabetes mellitus with diabetic chronic kidney disease; E87.5 Hyperkalemia; I25.10 Atherosclerotic heart disease of native coronary artery without angina pectoris; Z99.2 Dependence on renal dialysis; E78.00 Pure hypercholesterolemia, unspecified; I25.2 Old myocardial infarction; Z79.4 Long term (current) use of insulin; F41.9 Anxiety disorder, unspecified; E10.649 Type 1 diabetes mellitus with hypoglycemia without coma; Z87.891 Personal history of nicotine dependence; Z96.41 Presence of insulin pump (external) (internal); Z79.02 Long term (current) use of antithrombotics/antiplatelets; Z95.5 Presence of coronary angioplasty implant and graft; Z90.710 Acquired absence of both cervix and uterus; Z79.51 Long term (current) use of inhaled steroids; Z79.899 Other long term (current) drug therapy; Z79.82 Long term (current) use of aspirin; Z90.49 Acquired absence of other specified parts of digestive tract; Z99.81 Dependence on supplemental oxygen
CPT/HCPCS: 36415; 36600; 71046; 80048; 80069; 80202; 82803; 82962; 83036; 84145; 85025; 85027; 87631; 87633; 87641; 90937; 93005; 94002; 94003; 94640; 94762; 97802; 99285; 99406; A4216; G0257; J0612; Q5106

== ENCOUNTER → 2025-01-11 | Outpatient (CLI) | payer MEDICARE, OTHER, SELFPAY ==
--- NOTE | 2025-01-11 12:55 | CT_ITS ---
PROCEDURE: CHEST WITHOUT CONTRAST REASON FOR EXAM: SMOKER WITH MULTIPLE NEW LUNG NODULES TECHNIQUE: Chest CT without contrast. COMPARISON: Comparison is made with prior study dated October 16, 2024. FINDINGS: Hardware: None. Lymph nodes: Small calcified mediastinal and left hilar lymph nodes. Heart and Vasculature: Normal heart size. No pericardial effusion. Thoracic aorta and pulmonary arteries have normal contours; noncontrast technique limits evaluation. Coronary Artery Calcifications: Present Lungs and Airways: Stable appearance of the previously seen scattered noncalcified nodules in the left lung. Scarring in both lung apices. Mild emphysematous changes. Pleura: There is a new small left pleural effusion. Upper Abdomen: Visualized portions of the upper abdominal viscera are unremarkable. Bones: Degenerative changes of the thoracic spine. CT/Chest without Contrast IMPRESSION: Stable examination demonstrating small nodules in the left lung as described. New small left pleural effusion. Emphysematous changes. Repeat examination in 6 months. One or more dose reduction techniques were used (e.g., Automated exposure contr ol, adjustment of the mA and/or kV according to patient size, use of iterative reconstruction technique). Reading Location: [place] [id number]
== END | disposition home or self-care (01) ==
PROVIDERS: PCP Family Medicine; Referring Provider Nurse Practitioner Acute Care; Visit Provider Nurse Practitioner Acute Care
DX: R91.8 Other nonspecific abnormal finding of lung field (principal); F17.200 Nicotine dependence, unspecified, uncomplicated
CPT/HCPCS: 71250

== ENCOUNTER 2025-04-09 10:44 | Outpatient (CLI) | payer MEDICARE, OTHER, SELFPAY ==
--- OUTSIDE RECORDS SUMMARY | 2025-04-09 10:53 | XMS RPT_ITS | CCD ---
Author Organization [facility] CliniSyut Care Team Providers Care Senior Consulting Manager Name Role Phone Ruggeri THERMODYNAMICS PROFESSOR, Ana Rosa F Unavailable Unavailabl e Ruggeri THERMODYNAMICS PROFESSOR, Ana Rosa F Unavailable Unavailabl e Dr. Sin Lujan Primary Care Provider Dr. Sin Lujan Referring Provider ELLIE Medrano Attending Provider Dr. Rios Cordova Attending Provider [phone] ELLIE Medrano Attending Provider Dr. Rios Cordova Referring Provider [phone] None, No PCP Unavailable Unavailable Dr. Sin Lujan Primary Care Provider Dr. Sin Lujan Referring Provider Susan STEELSCOPE OPERATOR, STEELSCOPE OPERATOR-Marquis Meeks Attending Provider [phone] ELLIE Medrano Attending Provider [phone] Susan JUÁREZ, MARQUITA-C Jeanna Referring Provider Susan JUÁREZ, STEELSCOPE OPERATOR-C Jeanna Other Provider Dr. Rios Cordova Attending Provider Dr. Sin Lujan Primary Care Provider Dr. Sin Lujan Referring Provider ELLIE Medrano Attending Provider [phone] Susan STEELSCOPE OPERATOR, STEELSCOPE OPERATOR-C Jeanna Referring Provider [phone] Susan STEELSCOPE OPERATOR, STEELSCOPE OPERATOR-C Jeanna Other Provider Dr. Rios Cordova Attending Provider [phone] Rios Cordova Referring Provider Dr. Sin Lujan Primary Care Provider Dr. Sin Lujan Referring Provider ELLIE Medrano Attending Provider Susan STEELSCOPE OPERATOR, STEELSCOPE OPERATOR-C Jeanna Attending Provider [phone] BENTON Hardy Referring Provider BENTON Hardy Other Provider Dr. Salomon Robbins Attending Provider Radha Aranda Attending Provider Unavailable Dr. Sin Lujan Primary Care Provider [phone] Dr. Sin Lujan Referring Provider Heidi Russell Attending Provider Unavailable BENTON Hardy Attending Provider Susan STEELSCOPE OPERATOR, STEELSCOPE OPERATOR-C Jeanna Referring Provider [phone] Susan STEELSCOPE OPERATOR, STEELSCOPE OPERATOR-C Jeanna Other Provider Dr. Rios Cordova Attending Provider Dr. Sin Lujan Primary Care Provider Dr. Sin Lujan Referring Provider Dr. Terrance Alva Attending Provider Susan STEELSCOPE OPERATOR, STEELSCOPE OPERATOR-C Jeanna Referring Provider [phone] Susan STEELSCOPE OPERATOR, STEELSCOPE OPERATOR-C Jeanna Other Provider Dr. Sin Lujan Primary Care Provider [phone] Dr. Terrance Alva Attending Provider Dr. Sin Lujan Referring Provider Dr. Rios Cordova Attending Provider [phone] ELLIE Medrano Attending Provider Dr. Sin Lujan Primary Care Provider Dr. Sin Lujan Primary Care Provider Dr. Sin Lujan Referring Provider Susan STEELSCOPE OPERATOR, STEELSCOPE OPERATOR-C Jeanna Attending Provider Dr. Sin Lujan Primary Care Provider Dr. Sin Lujan Referring Provider Du STEELSCOPE OPERATOR, STEELSCOPE OPERATOR-C Kena Attending Provider Dr. Sin Lujan Primary Care Provider Dr. Sin Lujan Referring Provider Susan STEELSCOPE OPERATOR, STEELSCOPE OPERATOR-C Jeanna Attending Provider Du STEELSCOPE OPERATOR, STEELSCOPE OPERATOR-C Kena Attending Provider MARQUITA Medrano-Marquis Gutierrez Attending Provider [phone] Dr. Bird Lujan Primary Care Provider Dr. Bird Lujan Referring Provider [phone] Susan STEELSCOPE OPERATOR, STEELSCOPE OPERATOR-C Jeanna Attending Provider Bird Lujan Primary Care Provider Bird Lujan Primary Care Provider Lars RN, Param Unavailable Unavailable Lars RN, Param Unavailable Unavailable Lars RN, Param Unavailable Unavailable COLIN PEOPLES Referring Unavailable [facility] Primary Care Unavailable INO CONTE Admitting Unavailable JONI ARANA Consulting Unavailab FLY Adhikari Attending Unavailable ELIZABETH TYLER Referring Unavailable [facility] Primary Care Unavailable TORITO MAHAJAN Referring Unavailable [facility] Unavailable SUNI BROWN Referring Unavailable R[facility]NEY[facility] Primary Care Unavailable TARI BRIGGS Consulting Unavailable KEMAR ADAMES Admitting Unavailable SAVITA DENISE Attending Unavailable TORITO MAHAJAN Referring Unavailable [facility] Primary Care Unavailable MADELINE MONTALVO Attending Unavailable MADELINE MONTALVO Referring Unavailable [facility] Primary Care Unavailable ELIESER SOLIS Attending Unavailable ELIESER SOLIS Referring Unavailable TAI, [facility] Primary Care Unavailable Bird Lujan MD B Primary Care Provider Dr. Bird Lujan MD Primary Care Provider Tai DAIGLE, Dr. Pang Referring Provider [phone] Mitchell STEELSCOPE OPERATOR-C, Brenda Attending Provider Susan STEELSCOPE OPERATOR-C, Jeanna Attending Provider Susan STEELSCOPE OPERATOR-C, Jeanna Referring Provider Bradley ANDERSON, Dr. Harrison Attending Provider Bradley ANDERSON, Dr. Harrison Referring Provider Dottie DAIGLE, Dr. Ballesteros Attending Provider Provider, Ed Physician Attending Provider Catina acuna Provider, Ed Physician Emergency Provider Catina Parisi DO, Dr. Anderson Attending Provider Isak ANDERSON, Dr. Anderson Emergency Provider [facility] STEELSCOPE OPERATOR-C, Mynor Barbosa Attending Provider Kayleigh Farnsworth Attending Provider Kayleigh Farnsworth Referring Provider Timothy DAIGLE, Dr. Oliveira Attending Provider Dottie DAIGLE, Dr. Ballesteros Referring Provider Dottie DAIGLE, Dr. Ballesteros Other Provider Kumar DAIGLE, Dr. Vaz Emergency Provider Micalea DAIGLE, Dr. Johnson Attending Provider Micaela DAIGLE, Dr. Johnson Admit Provider Micaela DAIGLE, Dr. Johnson Other Provider Bradley ANDERSON, Dr. Harrison Other Provider Pradeep DAIGLE, Dr. Cutler Attending Provider Pradeep DAIGLE, Dr. Cutler Other Provider José Miguel DAIGLE, Dr. Hendricks Other Provider Elham DAIGLE, Dr. Peña Other Provider Art DAIGLE, Dr. Nation Other Provider Dr. Terrance Alva DO Other Provider Juan Pablo DAIGLE, Dr. Jimmy Walton Other Provider [phone] Vargas DAIGLE, Dr. Garcia Other Provider [phone] Frannie DAIGLE, Dr. Dorado Other Provider [phone] Lauren DAIGLE, Dr. Stone Other Provider [phone] Choco DAIGLE, Dr. Burdick Other Provider Jeet DAIGLE, Dr. Jameson Other Provider [phone] Guilherme DAIGLE, Dr. Motta Other Provider Prema DAIGLE, Dr. Cadet Other Provider Lorenzo DAIGLE, Dr. Kim Other Provider Unavailabl mari Franco MD, Dr. Turner Other Provider [phone] Marquez DAIGLE, Dr. Awad Other Provider Yahir DAIGLE, Dr. Langston Other Provider [phone] Peter DAIGLE, Dr. Wang Other Provider Altagracia ANDERSON, Dr. Holguin Other Provider Adrienne DAIGLE, Dr. Michael Other Provider [phone] Shamika DAIGLE, Dr. Marcano Other Provider [phone] John Dash DO Other Provider Joaquin DAIGLE, Dr. Lemus Other Provider Donny DAIGLE, Dr. Champagne Other Provider Pradeep DAIGLE, Dr. Cutler Referring Provider Dr. Terrance Alva DO Attending Provider [phone] Dottie DAIGLE, Dr. Ballesteros Attending Provider Dr. Christy Huerta DO Referring Provider Tai DAIGLE, Dr. Pang Primary Care Provider Tai DAIGLE, Dr. Pang Referring Provider Susan STEELSCOPE OPERATOR-C, Jeanna Attending Provider Susan STEELSCOPE OPERATOR-C, Jeanna Referring Provider Mitchell STEELSCOPE OPERATOR-C, Brenda Attending Provider Davis STEELSCOPE OPERATOR, Jeanna Referring Unavailable Davis STEELSCOPE OPERATOR, Jeanna Attending Unavailable [facility] Primary Care Unavailable Brenda Medrano Referring Unavailable Brenda Medrano Attending Unavailable [facility] Primary Care Unavailable Davis STEELSCOPE OPERATOR, Jeanna Attending Unavailable Davis STEELSCOPE OPERATOR, Jeanna Referring Unavailable [facility] Primary Care Unavailable [facility] Primary Care Unavailable Christy Huerta Consulting Unavailable Terrance Alva Attending Unavailable He Cat Referring Unavailable Alex Hinojosa Admitting Unavailable Alex Hinojosa Consulting Unavailable He Cat Consulting Unavailable [facility] Primary Care Unavailable Favian Sinclair Attending Unavailable DottieFavian orta Referring Unavailable Christy Huerta Attending Unavailable Christy Huerta Referring Unavailable [facility] Primary Care Unavailable Christy Huerta Attending Unavailable [facility] Primary Care Unavailable Favian Nicholas Attending Unavailable Danette Lani L Admitting Unavailable White Lani L Consulting Unavailable [facility] Primary Care Unavailable DonnellMarshal chadwick Consulting Unavailable Leon Cao Consulting Unavailable Mario Parry Consulting Unavailable Janet Wallis Consulting Unavailable Kayleigh Concepcion Consulting Unavailable Liliana Tadeo Consulting Unavailable Eduardo Simpson Consulting Unavailable Stephanie Torres Consulting Unavailable James Mendiola Consulting Unavailable Kalia Cohen Consulting Unavailable Jose Alejandro Chow Consulting Unavailable Kiersten Sherwood Consulting Unavailable Torito Peña Consulting Unavailable Roxanne Mariscal Consulting Unavailable Compa Robles Consulting Unavailable Stef Mhd Carroll Consulting UnavailLyle Gonzalez Consulting Unavailable Frederick Padilla Consulting Unavailable Lopez Renae Consulting Unavailable Liya Huerta Consulting Unavailable Eve Adhikari Consulting Unavailable Baldo Tripp Consulting Unavailable Eladio Valdez Consulting Unavailable Casey Lizarraga Consulting Unavailable Terrance Alva Consulting Unavailable Jimmy Almeida Consulting Unavailable Jose Kaye Consulting Unavailable Estrada Kathleen Consulting Unavailable Bertha Aguilar Consulting Unavailab le Dand, Gennaro Consulting Unavailable Marcano, Trino Consulting Unavailable Prema, Chichi Consulting Unavailable Aljundi, Lamia Consulting Unavailable Marquez, Ritesh Consulting Unavailable Irukulla, Kian Consulting Unavailable Peter, Felipe Consulting Unavailable Adrienne, Fernanda Consulting Unavailable Joaquin, Allan Consulting Unavailable Ihsan Hines Consulting Unavailable Christy Huerta Consulting Unavailable [facility] Primary Care Unavailable Christy Huerta Attending Unavailable Christy Huerta Referring Unavailable He Cat Attending Unavailable [facility] Referring Unavailable Brenda Medrano Attending Unavailable [facility] Primary Care Unavailable [facility] Referring Unavailable Favian Sinclair Attending Unavailable [facility] Care Unavailable [facility] Primary Care Unavailable Favian Sinclair Referring Unavailable Favian Sinclair Consulting Unavailable Favian Sinclair Attending Unavailable Baldo Tripp Attending Unavailable Lani Samaniego Consulting Unavailable [facility] Care Unavailable Lani Samaniego Admitting Unavailable Marshal Jacobo Consulting Unavailable Baldo Tripp Consulting Unavailable Kalia Baeza Attending Unavailable [facility] Care Unavailable [facility] Primary Care Unavailable Provider, Ed Physician Attending Unavailab [facility] Care Unavailable Kayleigh Payne Attending Unavailable Kayleigh Payne Referring Unavailable [facility] Care Unavailable Justin Parisi Attending Unavailabl Lani Moran Attending Unavailable Christy Huerta Consulting Unavailable Eladio Valdez Consulting Unavailable Casey Lizarraga Consulting Unavailable Rios Cordova Consulting Unavailable Terrance Alva Consulting Unavailable Jimmy Almeida Consulting Unavailable Jose Kaye Consulting Unavailable Frannie, Estrada Consulting Unavailable OsmarteJeronimo schwartzs Consulting Unavailab le Dand, Gennaro Consulting Unavailable Marcano, Trino Consulting Unavailable Kalia Vanegas Consulting Unavailable Prema, Chichi Consulting Unavailable Aljundi, Lamia Consulting Unavailable FrancoJenniesa Consulting Unavailable Marquez, Ritesh Consulting Unavailable Irukulla, Kian Consulting Unavailable Peter, Felipe Consulting Unavailable Dhenoe, Ezio Consulting Unavailable Fernanda Deleon Consulting Unavailable Krys Wick Consulting Unavailable John Dash Consulting Unavailable Joaquin, Allan Consulting Unavailable Ihsan Hines Consulting Unavailable Ranney, Christopher Primary Care Unavailable Christy Huerta Consulting Unavailable He Cat Attending Unavailable Alex Hinojosa Admitting Unavailable Alex Hinojosa Consulting Unavailable [facility] Alex Hinojosa Attending Unavailable Susan STEELSCOPE OPERATOR, Jeanna Referring Unavailable Susan STEELSCOPE OPERATOR, Jeanna Attending Unavailable [facility] Unavailable Favian Nicholas Referring Unavailable Terrance Alva Attending Unavailable Leon Cao Consulting Unavailable AdeMario roberson Consulting Unavailable Janet Wallis Consulting Unavailable Kayleigh Concepcion Consulting Unavailable Liliana Tadeo Consulting Unavailable Eduardo Simpson Consulting Unavailable Stephanie Torres Consulting Unavailable James Mendiola Consulting Unavailable Kalia Cohen Consulting Unavailable Jose Alejandro Chow Consulting Unavailable Kiersten Sherwood Consulting Unavailable Torito Peña Consulting Unavailable Roxanne Mariscal Consulting Unavailable Compa Robles Consulting Unavailable Cris Finch Consulting UnavailLyle Gonzalez Consulting Unavailable Frederick Padilla Consulting Unavailable Lopez Renae Consulting Unavailable Liya Huerta Consulting Unavailable Eve Adhikari Consulting Unavailable Eladio Valdez Consulting Unavailable Casey Lizarraga Consulting Unavailable Terrance Alva Consulting Unavailable Jimmy Almeida Consulting Unavailable Jose Kaye Consulting Unavailable Estrada Kathleen Consulting Unavailable Bertha Aguilar Consulting UnavailGennaro Cordova Consulting Unavailable Trino Marcano Consulting Unavailable Chichi Lloyd Consulting Unavailable Julio Ventura Consulting Unavailable Ritesh Zayas Consulting Unavailable Kain Sinclair Consulting Unavailable Felipe Green Consulting Unavailable Fernanda Deleon Consulting Unavailable Allan Nuñez Consulting Unavailable Ihsan Hines Consulting Unavailable Favian Nicholas Consulting Unavailable Favian Nicholas Attending Unavailable Marloarona, Christmarco Referring Unavailable Du STEELSCOPE OPERATOR, Kena Attending Unavailable [facility], [place] Primary Care Unavailable [facility], Christopher Referring Unavailable Viraj No Attending Unavailable [facility], [place] Primary Care Unavailable Ranarona, Christopher Referring Unavailable Brenda Medrano Attending Unavailable [facility] Unavailable [facility], Christopher Referring Unavailable Kayleigh Payne Attending Unavailable [facility] Unavailable Tai, Christopher Referring Unavailable Brenda Medrano Attending Unavailable [facility] Unavailable Ranarona, Christopher Referring Unavailable [facility] Unavailable Kayleigh Payne Attending Unavailable Ranney, Christopher Referring Unavailable [facility] Unavailable Susan JUÁREZ, Jeanna Attending Unavailable [facility] Primary Care Unavailable Christy Huerta Referring Unavailable Favian Sinclair Attending Unavailable Ranarona, Christopher Referring Unavailable [facility] Unavailable Mynor Anthony NP Attending Unavailable [facility] Primary Care Unavailable Tee Aguirre Attending Unavailquinn guerra [facility] Primary Care Unavailable Favian Sinclair [facility]ending [facility] Unavailable Brenda Medrano Attending Unavailable Saroj Lemos Attending Unavailable [facility] Primary Care Unavailable Lani Samaniego Referring Unavailable [facility] Primary Care Unavailable Favian Sinclair Attending Unavailable [facility], [place] Referring Unavailable Kena Sandy NP Attending Unavailable [facility] Primary Care Unavailable Allergies Allergy Classification Reported Allergen(s) Allergy Type Date of Onset Reaction(s) Facility (3 sources) environmental [Other] Propensity to adverse reactions 9 [facility] Medications Current Medications Medication Drug Class(es) Dates Sig (Normalized) Sig (Original) [id number] 200 actuat albuterol 0.09 mg/actuat metered dose inhaler (20 sources) beta2-Adrenergic Agonist Start: 06-23-2018 Start: 06-23-2018 take 2.5 mg by inhal ation every two hours as needed Albuterol Sulfate Active 2.5 MG INHALATION EVERY 2 HOURS NEEDED 1 June 23, 2018 12:00am Start: 06-21-2018 End: 03-14-2025 Start: 06-21-2018 End: 01-26-2024 take 1 puff(s) by inhalation every six hours as needed Albuterol Sulfate Discontinued 2 PUFF INHALATION EVERY 6 HOURS NEEDED 8.5 May 13, 2022 7:28am August 19, 2022 2:18pm Start: 03-11-2015 End: 01-26-2018 take 6.7 g by inhalation every two hours as needed Albuterol Sulfate Discontinued 6.7 GM IH EVERY 2 HOURS NEEDED 1 March 11, 2015 11:38am January 26, 2018 12:49pm Start: 03-11-2015 End: 01-26-2018 take 6.7 g by inhalation every two hours as needed Albuterol Sulfate Discontinued 6.7 GM IH EVERY 2 HOURS NEEDED March 11, 2015 12:38pm January 26, 2018 1:49pm take 2 puff(s) by [facility] every six hours for cough albuterol 108 (90 Base) MCG/ACT inhaler inhale 2 puffs by mouth and INTO THE LUNGS every 6 hours if needed for cough Active PROAIR HFA 108 ( 90 Base) MCG/ACT AERS PRN ALBUTEROL SULFATE [id number] Alyssia Ibanez RN RN amLODIPine 10 mg oral tablet (20 sources) Dihydropyridine Calcium Channel [place] Start: 11-20-2024 Start: 05-30-2021 End: 11-18-2023 aspirin 81 mg delayed release oral tablet (20 sources) Platelet Aggregation Inhibitor, Nonsteroidal Anti-inflammatory Drug Start: 12-31-2019 End: 08-24-2024 Start: 11-19-2019 End: 12-31-2019 Start: 03-23-2009 ASPIRIN 81 MG TAB Take one(1) tablet daily. 0 03/23/2009 Active Blood-Glucose Sensor (Dexcom G6 Sensor) device (3 sources) Start: 12-03-2023 Blood-Glucose Sensor (Dexcom G6 Sensor) device Active 0 .Route 3 December 03, 2023 1:00am 1 sensor q 10 days Blood-Glucose Transmitter (Dexcom G6 Transmitter) device (3 sources) Start: 12-03-2023 Blood-Glucose Transmitter (Dexcom G6 Transmitter) device Active 0 .Route 1 December 03, 2023 1:00am 1 transmitter q 90 days 120 actuat budesonide 0.16 mg/actuat / formoterol fumarate 0.0048 mg/actuat / glycopyrrolate 0.009 mg/actuat metered dose inhaler (12 sources) Corticosteroid, beta2-Adrenergic Agonist Start: 07-20-2024 Breztri Aerosphere 160-9-4.8 MCG/ACT aerosol 07/20/2024 Active Start: 07-20-2024 End: 10-07-2024 busPIRone hydrochloride 7.5 mg oral tablet (18 sources) Start: 08-12-2024 End: 08-24-2024 Start: 08-02-2024 End: 08-10-2024 Start: 04-15-2024 End: 12-14-2024 Calcium Carbonate / vitamin D3 (3 sources) CALCIUM CARBONAT E/VITAMIN D3 (CALCIUM + D ORAL) Take by mouth three times daily. Active cefdinir 300 mg oral capsule (20 sources) Cephalosporin Antibacterial Start: 01-06-2025 Start: 06-23-2018 End: 07-30-2018 cholecalciferol 0.025 mg donna wable tablet (12 sources) Vitamin D Cholecalciferol ([facility] Vitamin D3) 25 MCG (1000 UT) chewable tablet Chew. Active [facility] VITAMIN D3 1 000 UNIT CHEW Weekly CHOLECALCIFEROL [id number] Alyssia Ibanez RN RN Continuous Glucose Sensor (Dexcom G6 Sensor) [facility] [place] (6 sources) Start: 07-22-2024 Continuous Glu cose Sensor (Dexcom G6 Sensor) [facility] 07/22/2024 Active Continuous Glucose Transmitter (Dexcom G6 transmitter) [facility] (6 sources) Start: 07-25-2024 Continuous Glu cose Transmitter (Dexcom G6 transmitter) [facility] 07/25/2024 Active 1 ml denosumab 60 mg/ml prefilled syringe (14 sources) RANK Ligand Inhibitor Start: 05-26-2024 End: 06-10-2024 Prolia 60 MG/ML solution prefilled syringe Active dicyclomine hydrochloride 10 mg oral capsule (3 sources) Anticholinergic Start: 02-12-2012 dicyclomine (BENTYL) 10 mg ORAL capsule Take 1 capsule by mouth. Take one capsule three times a day, as needed. Suggested before lunch and dinner, and again before bed. 60 capsule 2 02/12/2012 Active estradiol 1 mg oral tablet (10 sources) Estrogen End: 01-08-2017 take 1 tablet by mouth once daily estradiol 1 mg ORAL tablet Take 1 mg by mouth once daily. Active Flash Glucose Scanning [place] (Freestyle Eileen 2 [place]) [facility] (19 sources) Start: 11-20-2020 Flash Glucose Scanning [place] (Freestyle Eileen 2 [place]) [facility] Active 0 .ROUTE .MEDSUPPLY November 20, 2020 10:12am As directed Start: 11-20-2020 Flash Glucose Scanning [place] (Freestyle Eileen 2 [place]) [facility] Active 0 .ROUTE .MEDSUPPLY November 20, 2020 12:00am As directed Start: 11-20-2020 Flash Glucose Scanning [place] (Freestyle Eileen 2 [place]) [facility] Active 0 .ROUTE .MEDSUPPLY November 20, 2020 1:00am As directed Flash Glucose Sensor (Freest yle Eileen 2 Sensor) kit (20 sources) Start: 08-27-2023 Flash Glucose Sensor (Freestyle Eileen 2 Sensor) kit Active 0 .ROUTE .MEDSUPPLY August 27, 2023 3:27pm 1 sensor q 14 days Start: 08-27-2023 Flash Glucose Sensor (Freestyle Eileen 2 Sensor) kit Active 0 .ROUTE .MEDSUPPLY August 27, 2023 2:27pm 1 sensor q 14 days Start: 03-26-2023 End: 08-27-2023 Flash Glucose Sensor (Freest yle Eileen 2 Sensor) kit Discontinued 0 .ROUTE .MEDSUPPLY March 26, 2023 1:38pm August 27, 2023 3:27pm As directed Start: 03-26-2023 End: 08-27-2023 Flash Glucose Sensor (Freest yle Eileen 2 Sensor) kit Discontinued 0 .ROUTE .MEDSUPPLY March 26, 2023 12:38pm August 27, 2023 2:27pm As directed Start: 03-26-2023 Flash Glucose Sensor (Freestyle Eileen 2 Sensor) kit Active 0 .ROUTE .MEDSUPPLY March 26, 2023 1:38pm As directed Start: 12-19-2022 End: 03-26-2023 Flash Glucose Sensor (Freest yle Eileen 2 Sensor) kit Discontinued 0 .ROUTE .MEDSUPPLY December 19, 2022 5:02pm March 26, 2023 12:38pm As directed Start: 12-19-2022 End: 03-26-2023 Flash Glucose Sensor (Freest yle Eileen 2 Sensor) kit Discontinued 0 .ROUTE .MEDSUPPLY December 19, 2022 6:02pm March 26, 2023 1:38pm As directed Start: 12-19-2022 Flash Glucose Sensor (Freestyle Eileen 2 Sensor) kit Active 0 .ROUTE .MEDSUPPLY December 19, 2022 6:02pm As directed Start: 07-04-2022 End: 12-19-2022 Flash Glucose Sensor (Freest yle Eileen 2 Sensor) kit Discontinued 0 .ROUTE .MEDSUPPLY July 04, 2022 10:11am December 19, 2022 5:02pm As directed Start: 07-04-2022 End: 12-19-2022 Flash Glucose Sensor (Freest yle Eileen 2 Sensor) kit Discontinued 0 .ROUTE .MEDSUPPLY July 04, 2022 11:11am December 19, 2022 6:02pm As directed Start: 07-04-2022 Flash Glucose Sensor (Freestyle Eileen 2 Sensor) kit Active 0 .ROUTE .MEDSUPPLY July 04, 2022 10:11am As directed Start: 07-04-2022 Flash Glucose Sensor (Freestyle Eileen 2 Sensor) kit Active 0 .ROUTE .MEDSUPPLY July 04, 2022 11:11am As directed Start: 04-03-2022 End: 07-04-2022 Flash Glucose Sensor (Freest yle Eileen 2 Sensor) kit Discontinued 0 .ROUTE .MEDSUPPLY 2 April 03, 2022 8:31am July 04, 2022 10:11am As directed Start: 04-03-2022 End: 07-04-2022 Flash Glucose Sensor (Freest yle Eileen 2 Sensor) kit Discontinued 0 .ROUTE .MEDSUPPLY 2 April 03, 2022 9:31am July 04, 2022 11:11am As directed Start: 04-03-2022 Flash Glucose Sensor (Freestyle Eileen 2 Sensor) kit Active 0 .ROUTE .MEDSUPPLY 2 April 03, 2022 9:31am As directed Start: 07-19-2021 End: 04-03-2022 Flash Glucose Sensor (Freest yle Eileen 2 Sensor) kit Discontinued 0 .ROUTE .MEDSUPPLY 2 July 19, 2021 12:00pm April 03, 2022 8:32am As directed Start: 07-19-2021 End: 04-03-2022 Flash Glucose Sensor (Freest yle Eileen 2 Sensor) kit Discontinued 0 .ROUTE .MEDSUPPLY 2 July 19, 2021 1:00pm April 03, 2022 9:32am As directed Start: 07-19-2021 Flash Glucose Sensor (Freestyle Eileen 2 Sensor) kit Active 0 .ROUTE .MEDSUPPLY 2 July 19, 2021 1:00pm As directed Start: 11-20-2020 End: 07-19-2021 Flash Glucose Sensor (Freest yle Eileen 2 Sensor) kit Discontinued 0 .ROUTE .MEDSUPPLY 2 November 20, 2020 10:11am July 19, 2021 1:00pm As directed Start: 11-20-2020 End: 07-19-2021 Flash Glucose Sensor (Freest yle Eileen 2 Sensor) kit Discontinued 0 .ROUTE .MEDSUPPLY 2 November 20, 2020 12:00am July 19, 2021 12:00pm As directed Start: 11-20-2020 End: 07-19-2021 Flash Glucose Sensor (Freest yle Eileen 2 Sensor) kit Discontinued 0 .ROUTE .MEDSUPPLY 2 November 20, 2020 1:00am July 19, 2021 1:00pm As directed fluticasone propionate 0.05 mg/actuat metered dose nasal spray (16 sources) Corticosteroid Start: 08-07-2024 End: 08-10-2025 take 2 spray(s) nasal route once daily fluticasone (Flonase) 50 MCG/ACT nasal spray Administer 2 sprays into each nostril daily. Shake gently. Before first use, prime pump. After use, clean tip and replace cap. 08/10/2024 08/10/2025 Active Fluticasone-Umeclid in-Vilanter (20 sources) Start: 12-30-2024 Start: 10-13-2024 End: 12-30-2024 Start: 10-29-2023 End: 07-20-2024 Start: 10-29-2023 Fluticasone-Um eclidin-Vilanter (Trelegy Ellipta) 200-62.5-25 mcg blister with device Active 1 INH INHALATION DAILY 3 October 29, 2023 4:13pm Start: 10-29-2023 Fluticasone-Um eclidin-Vilanter (Trelegy Ellipta) 200-62.5-25 mcg blister with device Active 1 INH INHALATION DAILY October 29, 2023 3:13pm Start: 10-01-2023 End: 10-29-2023 Start: 10-01-2023 End: 10-29-2023 Zzspjopfxqj-Oehbchtuh-Dhrkfn er (Trelegy Ellipta) 200-62.5-25 mcg blister with device Discontinued 1 INH INHALATION DAILY 3 October 01, 2023 3:45pm October 29, 2023 4:14pm Start: 10-01-2023 End: 10-29-2023 Mxicqgtehyt-Srpgefkql-Qseawp er (Trelegy Ellipta) 200-62.5-25 mcg blister with device Discontinued 1 INH INHALATION DAILY 3 October 01, 2023 2:45pm October 29, 2023 3:14pm Start: 10-01-2023 Fluticasone-Um eclidin-Vilanter (Trelegy Ellipta) 200-62.5-25 mcg blister with device Active 1 INH INHALATION DAILY 3 October 01, 2023 2:45pm Start: 06-25-2023 End: 10-01-2023 Start: 06-25-2023 End: 10-01-2023 Yeneenhyowa-Mwyhpktjg-Gtghcy er (Trelegy Ellipta) 200-62.5-25 mcg blister with device Discontinued 1 INH INHALATION DAILY 60 June 25, 2023 12:00am October 01, 2023 3:46pm Start: 06-25-2023 End: 10-01-2023 Ariixjpihgz-Hkkxatbpw-Vukdvt er (Trelegy Ellipta) 200-62.5-25 mcg blister with device Discontinued 1 INH INHALATION DAILY 60 June 24, 2023 11:00pm October 01, 2023 2:46pm gabapentin 800 mg oral table t (20 sources) Anti-epileptic Agent Start: 08-12-2024 End: 08-24-2024 Start: 08-04-2024 End: 08-10-2025 take 2 capsules by mouth twice daily gabapentin (Neurontin) 100 MG capsule Take 2 capsules (200 mg) by mouth 2 times daily. 08/10/2024 08/10/2025 Active Start: 02-17-2023 End: 10-07-2024 Start: 02-17-2023 take 800 mg by mouth at bedtim e Gabapentin Active 800 MG PO AT BEDTIME February 17, 2023 12:00am Start: 01-10-2022 End: 04-14-2024 Start: 06-21-2018 End: 07-04-2022 Start: 01-21-2015 End: 01-16-2018 End: 08-10-2024 12 hr guaiFENesin 600 mg / pseudoephedrine hydrochloride 60 mg extended release oral tablet (2 sources) alpha-Adrenergic Agonist Start: 01-06-2025 hydrALAZINE hydrochloride 25 mg oral tablet (7 sources) Arteriolar Vasodilator Start: 12-16-2024 End: 02-08-2025 Start: 07-26-2024 End: 08-04-2024 Insulin Disposable Pump (Omnipod 5 [id number] Intro Gen 5) kit (3 sources) Start: 12-03-2023 Insulin Disposable Pump (Omnipod 5 [id number] Intro Gen 5) kit 12/03/2023 Active Insulin Disposable Pump (Omnipod 5 [id number] Pods Gen 5) misc (3 sources) Start: 07-15-2024 Insulin Disposable Pump (Omnipod 5 [id number] Pods Gen 5) misc 07/15/2024 Active insulin glargine 100 unt/ml injectable solution (20 sources) Insulin Analogue Start: 07-26-2024 End: 08-24-2024 inject 3 [IU] by subcutaneous injection once daily insulin glargine (Lantus) 100 UNIT/ML injection Inject 3 Units under the skin Nightly. 08/10/2024 Active Start: 10-29-2023 Insulin Glargi ne (Lantus Solostar U-100 Insulin) 100 unit/mL (3 mL) insulin pen Active 10 UNIT SC EVERY MORNING October 29, 2023 3:47pm Start: 01-01-2023 End: 10-29-2023 Insulin Glargine (Lantus Vanessa ostar U-100 Insulin) 100 unit/mL (3 mL) insulin pen Active 15 UNIT SC EVERY MORNING August 27, 2023 2:27pm Start: 02-08-2021 End: 01-01-2023 Insulin Glargine Discontinue d 12 UNIT SC DAILY June 28, 2021 7:35am January 01, 2023 1:43pm Start: 08-29-2020 End: 04-14-2024 Start: 08-29-2020 End: 02-08-2021 Insulin Glargine Discontinue d 10 UNITS SC DAILY August 29, 2020 12:00am February 08, 2021 9:01am Start: 01-16-2018 End: 01-26-2018 Insulin Glargine Discontinue d 8 UNIT SC WITH BREAKFAST 0 January 16, 2018 9:21am January 26, 2018 1:51pm Hold if morning blood sugar is less than 130 mg percent Start: 01-08-2017 take 21 [IU] by subc utaneous injection once at bedtime LANTUS 100 UNIT/ML SOLN 21 units sq q hs INSULIN GLARGINE [id number] Alyssia Ibanez RN RN Start: 01-21-2015 End: 01-26-2018 Start: 01-21-2015 End: 01-16-2018 Insulin Glargine (Lantus Vanessa ostar U-100 Insulin) 100 UNITS/ML Pen Discontinued 23 UNIT SC AT BEDTIME January 21, 2015 12:00am January 16, 2018 9:22am Start: 03-26-2011 inject 32 [IU] by powell bcutaneous injection at bedtime insulin glargine (LANTUS) 100 unit/mL SUBCUTANEOUS injection Inject subcutaneously. Taking 32 units at bedtime 3 Vial 4 03/26/2011 Active take 20 [IU] by subc utaneous injection once at bedtime LANTUS 100 UNIT/ML SOLN 20 units sq q hs INSULIN GLARGINE [id number] Qi Dunham LPN Insulin Pump Cart,Auto,Bt-Cntr (Omnipod 5 G6 Intro Kit (Gen 5)) cartridge (3 sources) Start: 12-03-2023 Insulin Pump Cart,Auto,Bt-Cntr (Omnipod 5 G6 Intro Kit (Gen 5)) cartridge Active 0 .Route December 03, 2023 1:00am x1 Insulin Pump Cart,Automated,Bt (Omnipod 5 G6 Pods (Gen 5)) cartridge (3 sources) Start: 12-03-2023 Insulin Pump Cart,Automated,Bt (Omnipod 5 G6 Pods (Gen 5)) cartridge Active 0 .Route December 03, 2023 1:00am 1 pod 72 hours Kerendia 10 MG tablet (3 sources) Start: 10-22-2023 take 1 tablet by mouth once daily Kerendia 10 MG tablet Take 1 tablet by mouth daily. 10/22/2023 Active metoprolol tartrate 50 mg oral tablet (20 sources) beta-Adrenerg ic [place] Start: 08-14-2024 End: 08-24-2025 take 1 tablet by mouth twice daily metoprolol tartrate (Lopressor) 25 MG tablet Take 1 tablet (25 mg) by mouth 2 times daily. 08/24/2024 08/24/2025 Active Start: 11-19-2019 End: 11-11-2024 Start: 03-15-2019 End: 09-20-2019 take 12.5 mg by mouth twice daily Metoprolol Tartrate Discontinued 12.5 MG PO TWICE A DAY March 15, 2019 3:25pm September 20, 2019 12:46pm Start: 06-21-2018 End: 11-19-2019 nitroglycerin 0.4 mg sublingual tablet (20 sources) Nitrate Vasodilator Start: 07-15-2024 nitroglyce rin (Nitrostat) 0.4 MG SL tablet 07/15/2024 Active Start: 01-26-2019 End: 10-21-2024 Start: 01-26-2019 End: 10-19-2023 Nitroglycerin Discontinued 0 .4 MG SL every 5 to 15 minutes April 09, 2023 2:04pm August 27, 2023 11:47am until response; do not exceed 3 doses per episode Start: 02-20-2018 End: 06-02-2018 Start: 02-20-2018 End: 06-02-2018 Nitroglycerin (Nitrostat) 0. 4 mg tablet, sublingual Discontinued 0.4 MG SL every 5 to 15 minutes February 20, 2018 12:00am June 02, 2018 2:36pm until response; do not exceed 3 doses per event Oxygen (3 sources) Start: 12-03-2023 oxygen Active NASAL December 03, 2023 1:00am 3 l Pen Needle, Diabetic (19 sources) Start: 08-29-2020 Pen Needle, Di abetic Active 1 EACH MC BEFORE MEALS AND AT BEDTIME August 29, 2020 3:39pm Start: 08-29-2020 Pen Needle, Di abetic Active 1 EACH MC BEFORE MEALS AND AT BEDTIME August 28, 2020 11:00pm Start: 08-29-2020 Pen Needle, Di abetic Active 1 EACH MC BEFORE MEALS AND AT BEDTIME August 29, 2020 12:00am promethazine hydrochloride 25 mg oral tablet (3 sources) Phenothiazine Start: 02-14-2012 take 1 tablet by mouth every eight hours as needed for nausea and nausea promethazine (PHENERGAN) 25 mg ORAL tablet Indications: Nausea Take 1 tablet by mouth every 8 hours as needed (take when nauseated.). 30 tablet 1 02/14/2012 Active roflumilast 0.5 mg oral tablet (10 sources) Phosphodiesterase 4 Inhibitor Start: 08-24-2024 End: 08-24-2024 take 1 tablet by mouth once daily Roflumilast (Daliresp) 500 MCG tablet Take one tablet by mouth every day 30 tablet 08/25/2024 Active sevelamer carbonate 800 mg oral tablet (2 sources) Phosphate Binder Start: 12-14-2024 simvastatin 40 mg oral tablet (20 sources) HMG-CoA Reductase Inhibitor Start: 06-21-2018 Start: 02-12-2012 take 1 tablet by vasile th once daily at bedtime simvastatin (ZOCOR) 20 mg ORAL tablet Take 1 tablet by mouth daily at bedtime. 0 02/12/2012 Active take 1 tablet by vasile th once daily ZOCOR 40 MG TABS One tablet by mouth daily SIMVASTATIN [id number] Alyssia Ibanez RN RN Trelegy Ellipta 200-62.5-25 MCG/ACT aerosol powder (6 sources) Start: 05-12-2024 Trelegy Ellipt a 200-62.5-25 MCG/ACT aerosol powder 05/12/2024 Active (4 sources) Start: 07-22-2024 (4 sources) Start: 07-25-2024 (4 sources) Start: 05-12-2024 (20 sources) Start: 03-02-2025 Start: 02-09-2025 Start: 02-09-2025 Start: 01-27-2025 End: 02-09-2025 Start: 01-13-2025 End: 02-23-2025 Start: 01-13-2025 Start: 01-10-2025 End: 01-27-2025 Start: 01-10-2025 Start: 12-03-2024 Start: 2024 End: 12-03-2024 Start: 11-15-2024 End: 01-27-2025 Start: 11-15-2024 Start: 10-05-2024 End: 01-10-2025 Start: 08-17-2024 End: 08-17-2024 Start: 08-13-2024 End: 08-14-2024 take 2250 mg intravenously every six hours Start: 08-12-2024 End: 08-24-2024 take 4 mg by mouth every eight hours as needed for nausea and vomiting [Order 1 Start] Name: ondansetron ODT (Zofran-ODT) disintegrating tablet 4 mg Signed Summary: 4 mg, Oral, Every 8 hours PRN, nausea, vomiting, Starting on Soni 08/12/24 at 1808, 1st Line. If inadequate response within 60 minutes, proceed to next-line agent or contact provider if no further options ordered. Patient should allow tablet to dissolve on tongue. Do not remove from blister pack until just before administering. [Order 1 End] [Order 2 Start] Name: ondansetron (Zofran) injection 4 mg Signed Summary: 4 mg, IntraVENous, Every 6 hours PRN, nausea, vomiting, Starting on Soni 08/12/24 at 1808, 1st Line. Give IV if patient is unable to take orally. If inadequate response within 60 minutes, proceed to next-line agent or contact provider if no further options ordered. [Order 2 End] Start: 08-08-2024 End: 08-08-2024 Start: 08-06-2024 End: 08-10-2024 inject 12 [IU] by subcutaneous injection once daily [Order 1 Start] Name: Insulin Lispro (Humalog) injection 0-12 Units Signed Summary: 0-12 Units, SubCUTAneous, 3 times daily with meals, First dose on Fri08/06/24 at 1700, Medium Dose Correction Algorithm Glucose: Dose: LESS than 139 No Insulin 140-199 2 Unit 200-249 4 Units 250-299 6 Units 300-349 8 Units 350-400 10 Units Above 400 12 Units [Order 1 End] [Order 2 Start] Name: Insulin Lispro (Humalog) injection 0-12 Units Signed Summary: 0-12 Units, SubCUTAneous, Nightly, First dose on Fri08/06/24 at 2100, If continuous tube feedings/TPN/NPO, give correction dose based on result, no reduction in dose. If eating or bolus tube feeding: Medium Dose Correction Algorithm Glucose: Dose: LESS than 139 No Insulin 140-199 2 Unit 200-249 4 Units 250-299 6 Units 300-349 8 Units 350-400 10 Units Above 400 12 Units [Order 2 End] Start: 08-06-2024 End: 08-06-2024 Start: 08-04-2024 End: 08-10-2024 [Order 1 Start] Name: pantop razole (ProtoNix) EC tablet 40 mg Signed Summary: 40 mg, Oral, Nightly, First dose on Fri08/04/24 at 2100, Do not crush, chew, or split. [Order 1 End] [Order 2 Start] Name: pantoprazole (ProtoNix) 40 mg in sodium chloride (PF) 0.9 % 10 mL injection Signed Summary: 40 mg, IntraVENous, Administer over 2 Minutes, Nightly, First dose on Fri08/04/24 at 2100, Give only if unable to tolerate po. [Order 2 End] Start: 07-29-2024 End: 07-29-2024 Start: 07-29-2024 End: 08-10-2024 Start: 07-27-2024 End: 07-28-2024 Start: 07-27-2024 End: 07-27-2024 take 1000 mg intravenously every twelve hours Start: 07-27-2024 End: 07-27-2024 Start: 07-27-2024 End: 07-27-2024 Start: 07-26-2024 End: 07-27-2024 Start: 07-26-2024 End: 07-27-2024 Start: 07-26-2024 End: 07-27-2024 Start: 07-26-2024 End: 08-03-2024 Start: 07-26-2024 End: 08-10-2024 take 4 mg by mouth every eight hours as needed for nausea and vomiting [Order 1 Start] Name: ondansetron ODT (Zofran-ODT) disintegrating tablet 4 mg Signed Summary: 4 mg, Oral, Every 8 hours PRN, nausea, vomiting, Starting on Fri07/26/24 at 1703, 1st Line. If inadequate response within 60 minutes, proceed to next-line agent or contact provider if no further options ordered. Patient should allow tablet to dissolve on tongue. Do not remove from blister pack until just before administering. [Order 1 End] [Order 2 Start] Name: ondansetron (Zofran) injection 4 mg Signed Summary: 4 mg, IntraVENous, Every 6 hours PRN, nausea, vomiting, Starting on 07/26/24 at 1703, 1st Line. Give IV if patient is unable to take orally. If inadequate response within 60 minutes, proceed to next-line agent or contact provider if no further options ordered. [Order 2 End] Start: 05-31-2024 End: 01-13-2025 Start: 05-12-2024 End: 11-15-2024 Start: 05-12-2024 End: 10-05-2024 Start: 12-29-2023 End: 07-23-2024 Start: 12-03-2023 Start: 12-03-2023 End: 05-31-2024 Start: 12-03-2023 End: 05-31-2024 Start: 12-03-2023 End: 05-12-2024 Start: 08-27-2023 End: 01-27-2025 Start: 08-27-2023 Start: 08-26-2023 End: 01-27-2025 Start: 08-26-2023 Start: 03-26-2023 End: 08-27-2023 Start: 12-19-2022 End: 03-26-2023 Start: 07-04-2022 End: 12-19-2022 Start: 07-04-2022 End: 10-29-2023 Start: 04-03-2022 End: 07-04-2022 Start: 07-19-2021 End: 04-03-2022 Start: 11-20-2020 End: 01-27-2025 Start: 11-20-2020 Start: 11-20-2020 End: 07-19-2021 Start: 08-29-2020 End: 01-27-2025 Start: 08-29-2020 Start: 08-26-2020 End: 08-29-2020 Start: 03-11-2015 End: 01-26-2018 Completed/Discontinued Medications Medication Drug Class(es) Dates Sig (Normalized) Sig (Original) acetaminophen 325 mg oral tablet (4 sources) Start: 08-21-2024 End: 08-24-2024 take 650 mg by mouth every six hours as needed for pain Start: 08-01-2024 End: 08-10-2024 take 650 mg by mouth every four hours as needed for pain and fever 20 ml albumin human, long term 250 mg/ml injection (12 sources) Human Serum Albumin Start: 08-16-2024 End: 08-17-2024 Start: 08-16-2024 End: 08-16-2024 Start: 08-13-2024 End: 08-13-2024 Start: 08-05-2024 End: 08-05-2024 albuterol 0.833 mg/ml / ipratropium bromide 0.167 mg/ml inhalation solution (20 sources) Anticholinergic, beta2-Adrenergic Agonist Start: 08-20-2024 End: 08-24-2024 Start: 08-12-2024 End: 08-19-2024 Start: 08-07-2024 End: 08-10-2024 Start: 07-26-2024 End: 08-02-2024 Start: 10-29-2023 End: 12-29-2023 Start: 10-29-2023 End: 12-29-2023 ipratropium-albuterol (Duo-N eb) 0.5-2.5 mg/3 mL nebulizer solution inhale contents of 1 vial ( 3 MLS ) in nebulizer by mouth and INTO THE LUNGS every 4 hours 10/29/2023 Active AMOXICILLIN-POT CLAVULANATE (8 sources) Penicillin-class Antibacterial Start: 12-30-2012 End: 01-21-2013 AUGMENTIN 875-125 MG TABS bid AMOXICILLIN-POT CLAVULANATE [id number] Edie Kearney MD Start: 12-30-2012 AUGMENTIN 875- 125 MG TABS bid AMOXICILLIN-POT CLAVULANATE [id number] Edie Kearney MD take 10 mL by mouth every eight hours AUGMENTIN 250-62.5 MG/5ML SUSR 10 ml po q 8 hrs AMOXICILLIN-POT CLAVULANATE [id number] Qi Dunham LPN End: 12-30-2012 take 10 mL by mouth every eight hours AUGMENTIN 250-62.5 MG/5ML SUSR 10 ml po q 8 hrs AMOXICILLIN-POT CLAVULANATE [id number] Edie Kearney MD ASPIRIN TBEC (2 sources) take 1 tablet by mouth once daily ASPIR-81 TBEC One tablet by mouth daily ASPIRIN TBEC [id number] Qi Dunham THERMODYNAMICS PROFESSOR atorvastatin 20 mg oral tablet (2 sources) HMG-CoA Reductase Inhibitor Start: 08-12-20 24 End: 08-24-20 24 azithromycin 500 mg oral tablet (20 sources) Macrolide Antimicrobial Start: 06-23-20 18 End: 06-30-20 18 B-Complex With Vitamin C (Super B/C) capsule (16 sources) Start: 07-04-20 End: 10-29-20 take 1 capsule by mouth once daily B-Complex With Vitamin C (Super B/C) capsule Discontinued 1 CAP PO DAILY July 04, 2022 12:00am October 29, 2023 3:46pm Start: 07-04-2022 End: 10-29-2023 take 1 capsule by mouth once daily B-Complex With Vitamin C (Super B/C) capsule Discontinued 1 CAP PO DAILY July 03, 2022 11:00pm October 29, 2023 2:46pm Start: 07-04-2022 take 1 capsule by [facility] once daily B-Complex With Vitamin C (Super B/C) capsule Active 1 CAP PO DAILY July 03, 2022 11:00pm Start: 07-04-2022 take 1 capsule by mo ut once daily B-Complex With Vitamin C (Super B/C) capsule Active 1 CAP PO DAILY July 04, 2022 12:00am budesonide 0.5 mg/ml inhalat ion suspension (2 sources) Corticosteroid Start: 08-20-2024 End: 08-24-2024 buPROPion hydrochloride 75 m g oral tablet (20 sources) Aminoketone Start: 08-08-2022 End: 07-14-2023 Start: 02-07-2022 End: 08-08-2022 Start: 01-10-2022 End: 02-07-2022 Start: 09-20-2020 End: 06-27-2021 Start: 09-12-2020 End: 09-20-2020 calcium carbonate 1500 mg or al tablet (14 sources) Start: 04-09-2023 End: 10-29-2023 calcium chloride 0.0014 meq/ ml / potassium chloride 0.004 meq/ml / sodium chloride 0.103 meq/ml / sodium lactate 0.028 meq/ml injectable solution (8 sources) Start: 08-13-2024 End: 08-13-2024 Start: 08-13-2024 End: 08-13-2024 Start: 08-12-2024 End: 08-13-2024 Start: 08-04-2024 End: 08-04-2024 100 ml calcium gluconate 20 mg/ml injection (20 sources) Start: 08-19-2024 End: 08-19-2024 Start: 08-15-2024 End: 08-15-2024 Start: 08-14-2024 End: 08-14-2024 Start: 08-13-2024 End: 08-13-2024 Start: 08-05-2024 End: 08-05-2024 Start: 08-01-2024 End: 08-01-2024 Start: 07-28-2024 End: 07-30-2024 cholecalciferol 9.52 unt/ml / glucose 357 mg/ml oral gel (4 sources) Vitamin D Start: 08-12-2024 End: 08-24-2024 Start: 07-26-2024 End: 08-10-2024 ciprofloxacin 500 mg oral tablet (4 sources) Quinolone Antimicrobial End: 12-30-2012 take 500 mg by mouth every twelve hours CIPRO 500 MG/5ML (10%) SUSR 500mg po q 12 hrs CIPROFLOXACIN [id number] Qi Dunham LPN clopidogrel 75 mg oral tablet (20 sources) [id number] Platelet Inhibitor Start: 06-21-2018 End: 08-24-2024 Start: 01-16-2018 End: 02-05-2018 1 ml dexamethasone phosphate 4 mg/ml injection (19 sources) Corticosteroid Start: 07-26-2024 End: 08-04-2024 Start: 08-15-2022 End: 10-29-2023 100 ml dexmedetomidine 0.004 mg/ml injection (4 sources) Central alpha-2 Adrenergic Agonist Start: 08-12-2024 End: 08-13-2024 Start: 07-30-2024 End: 07-30-2024 docusate sodium 100 mg oral tablet (4 sources) End: 01-08-2017 take 1 tablet by mouth twice daily as needed COLACE 100 MG CAPS One tablet by mouth twice daily prn DOCUSATE SODIUM [id number] Alyssia Ibanez RN RN docusate sodium 50 mg / sennosides, long term 8.6 mg oral tablet (2 sources) Start: 08-17-2024 End: 08-24-2024 doxycycline hyclate 100 mg oral tablet (20 sources) Tetracycline- class Drug Start: 06-27-2021 End: 02-21-2022 Start: 01-21-2013 End: 01-31-2013 take 1 tablet by mouth every twelve hours DOXYCYCLINE HYCLATE 100 MG TABS 100 mg po every 12 hrs x 10 d DOXYCYCLINE HYCLATE [id number] Edie Kearney MD ergocalciferol 1.25 mg oral capsule (20 sources) Provitamin D2 Compound Start: 06-21-2018 End: 07-14-2023 escitalopram 20 mg oral tabl et (20 sources) Serotonin Reuptake Inhibitor Start: 06-21-2018 End: 11-19-2019 take 1 tablet by mouth once alejandra y ESCITALOPRAM OXALATE 10 MG TABS One tablet by mouth daily ESCITALOPRAM OXALATE [id number] Alyssia Ibanez RN RN ferrous sulfate 325 mg oral tablet (20 sources) Start: 06-21-2018 End: 11-19-2019 Finerenone (20 sources) Start: 04-09-2023 End: 02-05-2024 Start: 04-09-2023 End: 02-05-2024 take 1 tablet by mouth once daily Finerenone (Kerendia) 10 mg tablet Discontinued 10 MG PO DAILY April 09, 2023 12:00am February 05, 2024 11:13am Start: 04-09-2023 take 1 tablet by vasile th once daily Finerenone (Kerendia) 10 mg tablet Active 10 MG PO DAILY April 08, 2023 11:00pm Start: 04-09-2023 take 1 tablet by vasile th once daily Finerenone (Kerendia) 10 mg tablet Active 10 MG PO DAILY April 09, 2023 12:00am Start: 03-06-2023 End: 04-09-2023 Start: 03-06-2023 End: 04-09-2023 take 1 tablet by mouth once daily Finerenone (Kerendia) 10 mg tablet Discontinued 10 MG PO DAILY March 05, 2023 11:00pm April 09, 2023 1:34pm Start: 03-06-2023 End: 04-09-2023 take 1 tablet by mouth once daily Finerenone (Kerendia) 10 mg tablet Discontinued 10 MG PO DAILY March 06, 2023 12:00am April 09, 2023 2:34pm Ryobrdiynbo-Trhqldfkn-Besicw er (20 sources) Anticholinergic, Corticosteroid, beta2-Adrenergic Agonist Start: 02-17-2023 End: 06-25-2023 Start: 02-17-2023 End: 06-25-2023 Euujctrgyls-Nkudinizv-Mrutjb er (Trelegy Ellipta) 100-62.5-25 mcg blister with device Discontinued 1 INH INHALATION daily 60 February 17, 2023 9:13am June 25, 2023 8:59am administer at approximately the same time(s) each day Start: 02-17-2023 End: 06-25-2023 Qtbeijsdsqp-Gzzbkiigp-Kkmqus er (Trelegy Ellipta) 100-62.5-25 mcg blister with device Discontinued 1 INH INHALATION daily 60 February 17, 2023 8:13am June 25, 2023 7:59am administer at approximately the same time(s) each day Start: 02-17-2023 Fluticasone-Um eclidin-Vilanter (Trelegy Ellipta) 100-62.5-25 mcg blister with device Active 1 INH INHALATION daily 60 February 17, 2023 9:13am administer at approximately the same time(s) each day Start: 02-21-2022 End: 02-17-2023 Start: 02-21-2022 End: 02-17-2023 Arotiwtmzax-Hipltxqsn-Ogqwhz er (Trelegy Ellipta) 100-62.5-25 mcg blister with device Discontinued 1 INH INHALATION daily 60 February 21, 2022 12:21pm February 17, 2023 8:13am administer at approximately the same time(s) each day Start: 02-21-2022 End: 02-17-2023 Hyogwjmcbeb-Tijqmitpr-Jfuldr er (Trelegy Ellipta) 100-62.5-25 mcg blister with device Discontinued 1 INH INHALATION daily 60 February 21, 2022 1:21pm February 17, 2023 9:13am administer at approximately the same time(s) each day Start: 02-21-2022 Fluticasone-Um eclidin-Vilanter (Trelegy Ellipta) 100-62.5-25 mcg blister with device Active 1 INH INHALATION daily 60 February 21, 2022 12:21pm administer at approximately the same time(s) each day Start: 02-21-2022 Fluticasone-Um eclidin-Vilanter (Trelegy Ellipta) 100-62.5-25 mcg blister with device Active 1 INH INHALATION daily 60 February 21, 2022 1:21pm administer at approximately the same time(s) each day Start: 01-16-2022 End: 02-21-2022 Start: 01-16-2022 End: 02-21-2022 Dcvoqrqwtjc-Unguyaxoa-Dulekd er (Trelegy Ellipta) 100-62.5-25 mcg blister with device Discontinued 1 INH INHALATION daily January 16, 2022 10:47am February 21, 2022 12:22pm administer at approximately the same time(s) each day Start: 01-16-2022 End: 02-21-2022 Vyhkmjwecyf-Sxlmeydot-Hohyid er (Trelegy Ellipta) 100-62.5-25 mcg blister with device Discontinued 1 INH INHALATION daily January 16, 2022 11:47am February 21, 2022 1:22pm administer at approximately the same time(s) each day Start: 01-16-2022 Fluticasone-Um eclidin-Vilanter (Trelegy Ellipta) 100-62.5-25 mcg blister with device Active 1 INH INHALATION daily January 16, 2022 11:47am administer at approximately the same time(s) each day Start: 09-10-2021 End: 01-16-2022 Start: 09-10-2021 End: 01-16-2022 Wxwdtrppjug-Tsxvofcub-Jjzwye er (Trelegy Ellipta) 100-62.5-25 mcg blister with device Discontinued 1 INH INHALATION daily 60 September 10, 2021 1:48pm January 16, 2022 10:48am administer at approximately the same time(s) each day Start: 09-10-2021 End: 01-16-2022 Cihonxzddvb-Esgltonwt-Zrvieo er (Trelegy Ellipta) 100-62.5-25 mcg blister with device Discontinued 1 INH INHALATION daily 60 September 10, 2021 2:48pm January 16, 2022 11:48am administer at approximately the same time(s) each day Start: 04-03-2021 End: 09-10-2021 Start: 04-03-2021 End: 09-10-2021 Xntiidnrsvf-Ualsiluec-Zljfzi er (Trelegy Ellipta) 100-62.5-25 mcg blister with device Discontinued 1 INH INHALATION daily 60 April 03, 2021 9:55am September 10, 2021 1:49pm administer at approximately the same time(s) each day Start: 04-03-2021 End: 09-10-2021 Fbdynfbcvta-Joczcphtb-Bzsdzt er (Trelegy Ellipta) 100-62.5-25 mcg blister with device Discontinued 1 INH INHALATION daily 60 April 03, 2021 10:55am September 10, 2021 2:49pm administer at approximately the same time(s) each day Start: 09-12-2020 End: 04-03-2021 Wtganysdmfu-Cmjdwzznh-Fgpyio er (Trelegy Ellipta) 100-62.5-25 mcg blister with device Discontinued 1 INH INHALATION daily 60 September 12, 2020 9:59am April 03, 2021 10:55am administer at approximately the same time(s) each day Start: 09-12-2020 End: 04-03-2021 Start: 09-12-2020 End: 04-03-2021 Uxwnxulqixl-Elgooekdc-Wbpzyg er (Trelegy Ellipta) 100-62.5-25 mcg blister with device Discontinued 1 INH INHALATION daily September 12, 2020 12:00am April 03, 2021 9:55am administer at approximately the same time(s) each day Start: 09-12-2020 End: 04-03-2021 Bgciwvgqcco-Ykgbimsej-Ibvzpl er (Trelegy Ellipta) 100-62.5-25 mcg blister with device Discontinued 1 INH INHALATION daily 60 September 12, 2020 1:00am April 03, 2021 10:55am administer at approximately the same time(s) each day 120 actuat formoterol fumara te 0.0048 mg/actuat / glycopyrrolate 0.009 mg/actuat metered dose inhaler (2 sources) beta2-Adrenergic Agonist Start: 07-26-2024 End: 08-10-2024 60 actuat formoterol fumarat e 0.005 mg/actuat / mometasone furoate 0.2 mg/actuat metered dose inhaler (2 sources) Corticosteroid, beta2-Adrenergic Agonist Start: 08-12-2024 End: 08-24-2024 2 ml furosemide 10 mg/ml injection (6 sources) Loop Diuretic Start: 08-14-2024 End: 08-15-2024 Start: 08-09-2024 End: 08-09-2024 glucagon (rdna) 1 mg injecti on (20 sources) Start: 08-12-2024 End: 08-24-2024 Start: 07-26-2024 End: 08-10-2024 Start: 06-21-2018 End: 11-19-2019 Start: 06-21-2018 End: 11-19-2019 Glucagon (Human Recombinant) Discontinued 1 MG IJ DAILY June 21, 2018 12:00am November 19, 2019 10:52am GLUCAGON EMERGEN CY 1 MG KIT in case of hypoglycemia emergency GLUCAGON (RDNA) [id number] Alyssia Ibanez RN RN 150 ml glucose 50 mg/ml inje ction (8 sources) Start: 08-12-2024 End: 08-24-2024 Start: 08-12-2024 End: 08-24-2024 Start: 07-26-2024 End: 08-10-2024 Start: 07-26-2024 End: 08-10-2024 250 ml glucose 50 mg/ml / so dium chloride 9 mg/ml injection (2 sources) Start: 07-30-2024 End: 08-02-2024 12 hr guaiFENesin 600 mg ext ended release oral tablet (20 sources) Start: 08-17-2024 End: 08-24-2024 Start: 07-30-2024 End: 08-24-2024 take 200 mg by mouth every four hours as needed for cough and congestion Start: 12-29-2023 take 1200 mg by mout h every twelve hours Guaifenesin Active 1200 MG PO Q12H 60 December 29, 2023 1:00am Start: 02-17-2023 End: 11-18-2023 Start: 06-23-2018 End: 12-31-2018 Start: 06-23-2018 End: 12-31-2018 take 1200 mg by mouth twice daily Guaifenesin Disconti nued 1200 MG PO TWICE A DAY June 23, 2018 12:00am December 31, 2018 3:48pm 1 ml heparin sodium, porcine 1000 unt/ml injection (18 sources) Unfractionated Heparin, Anti-coagulant Start: 08-23-2024 End: 08-24-2024 Start: 08-16-2024 End: 08-24-2024 Start: 08-12-2024 End: 08-14-2024 Start: 08-03-2024 End: 08-10-2024 Start: 08-01-2024 End: 08-01-2024 Start: 08-01-2024 End: 08-01-2024 Start: 08-01-2024 End: 08-01-2024 Start: 08-01-2024 End: 08-01-2024 Start: 07-30-2024 End: 08-10-2024 HYDROmorphone hydrochloride 4 mg oral tablet (4 sources) Opioid Agonist End: 12-16-2012 take 1 tablet by mouth every four hours as needed DILAUDID 4 MG TABS po q 4 hrs prn HYDROMORPHONE HCL [id number] Qi Dunham LPN ibuprofen 200 mg oral tablet (8 sources) Nonsteroidal Anti-inflammatory Drug End: 12-16-2012 take 1 tablet by mouth every six hours as needed MOTRIN IB TABS 800 mg by mouth q 6 hrs prn IBUPROFEN TABS [id number] Qi Dunham LPN End: 12-30-2012 ADVIL 200 MG CAPS q 4 hrs as needed IBUPROFEN [id number] Edie Kearney MD Insulin Basal Pump (Pt's Own ) (Pump, Basal) 1 UNIT Pump (19 sources) Start: 08-26-2020 End: 08-29-2020 Insulin Basal Pump (Pt's Own ) (Pump, Basal) 1 UNIT Pump Discontinued 0 UNIT SC DIRECTED August 26, 2020 6:35pm August 29, 2020 3:34pm Start: 08-26-2020 End: 08-29-2020 Insulin Basal Pump (Pt's Own ) (Pump, Basal) 1 UNIT Pump Discontinued 0 UNIT SC DIRECTED August 25, 2020 11:00pm August 29, 2020 2:34pm Start: 08-26-2020 End: 08-29-2020 Insulin Basal Pump (Pt's Own ) (Pump, Basal) 1 UNIT Pump Discontinued 0 UNIT SC DIRECTED August 26, 2020 12:00am August 29, 2020 3:34pm insulin detemir 100 unt/ml i njectable solution (20 sources) Insulin Analogue Start: 06-21-2018 End: 11-19-2019 Start: 01-26-2018 End: 01-29-2018 Start: 01-26-2018 End: 01-29-2018 Insulin Detemir U-100 (Levem ir U-100 Insulin) 100 unit/mL solution Discontinued 21 UNIT SC AT BEDTIME January 26, 2018 12:00am January 29, 2018 9:09am Start: 01-11-2018 End: 01-26-2018 Start: 01-11-2018 End: 01-26-2018 Insulin Detemir U-100 Discon tinued 12 UNITS SC AT BEDTIME January 11, 2018 1:00am January 26, 2018 1:51pm LEVEMIR 100 UNIT /ML SOLN 21 units at bedtime INSULIN DETEMIR [id number] Alyssia Ibanez RN RN insulin isophane, human 100 unt/ml injectable suspension (4 sources) Start: 08-19-2024 End: 08-19-2024 Start: 08-13-2024 End: 08-13-2024 insulin lispro 100 unt/ml injectable solution (20 sources) Insulin Analogue Start: 12-17-2023 Insulin Lispr o (Humalog U-100 Insulin) 100 unit/mL solution Active 60 UNIT continuous subcutaneous infusion .continuous 54 December 17, 2023 1:00am via insulin pump Start: 07-04-2022 End: 12-17-2023 Insulin Lispro (Humalog Kwik pen Insulin) 100 unit/mL insulin pen Active 20 UNIT SC THREE TIMES A DAY 54 August 27, 2023 2:27pm Start: 02-12-2021 End: 07-04-2022 Insulin Lispro (Humalog Kwik pen Insulin) 100 unit/mL insulin pen Discontinued 10 UNIT SC THREE TIMES A DAY 15 June 24, 2022 8:02am July 04, 2022 10:10am Start: 01-11-2018 End: 08-10-2024 Start: 02-12-2012 End: 01-06-2025 take 5 [IU] by subcu taneous injection three times daily at mealtime HUMALOG 100 UNIT/ML SOLN 5 units sq three times a day with meals INSULIN LISPRO (HUMAN) [id number] Qi Dunham THERMODYNAMICS PROFESSOR End: 12-30-2012 take 5 [IU] by subcutaneous injection three times daily at mealtime HUMALOG 100 UNIT/ML SOLN 5 units sq three times a day with meals INSULIN LISPRO (HUMAN) [id number] Edie Kearney MD INSULIN SYRINGE-NEEDLE U-100 (2 sources) BD SAFETYGLIDE I NSULIN SYRINGE 31G X 15/64 0.3 ML MISC INSULIN SYRINGE-NEEDLE U-100 [id number] Alyssia Ibanez RN RN insulin aspart, human 100 unt/ml injectable solution (20 sources) Insulin Analogue Start: 01-26-2018 End: 01-26-2018 Start: 01-26-2018 End: 01-26-2018 Insulin Aspart U-100 (Novolo g U-100 Insulin Aspart) 100 unit/mL solution Discontinued 5 UNIT SC daily January 26, 2018 12:00am January 26, 2018 2:37pm Start: 01-21-2015 End: 01-26-2018 Start: 01-21-2015 End: 01-26-2018 Insulin Aspart U-100 Discont inued 10 UNIT SC 3 TIMES DAILY WITH MEALS January 21, 2015 12:00am January 26, 2018 1:50pm NOVOLOG 100 UNIT /ML SOLN INSULIN ASPART [id number] Alyssia Ibanez RN RN insulin, regular, human 100 unt/ml injectable solution (12 sources) Insulin Start: 08-19-2024 End: 08-19-2024 Start: 07-27-2024 End: 07-27-2024 Start: 07-26-2024 End: 08-04-2024 24 hr isosorbide mononitrate 30 mg extended release oral tablet (20 sources) Nitrate Vasodilator Start: 01-16-2018 End: 02-20-2018 labetalol hydrochloride 5 mg /ml injectable solution (4 sources) beta-Adrenergic Darwin Start: 07-26-2024 End: 08-04-2024 100 ml levETIRAcetam 5 mg/ml injection (2 sources) Start: 08-13-2024 End: 08-13-2024 levoFLOXacin 750 mg oral tab let (14 sources) Quinolone Antimicrobial Start: 11-04-2023 End: 11-11-2023 Start: 12-18-2012 End: 01-21-2013 take 1 tablet by mouth once daily LEVAQUIN 500 MG TABS One tablet by mouth daily for 5 days LEVOFLOXACIN [id number] Qi Dunham LPN lisinopril 2.5 mg oral table t (20 sources) Angiotensin Converting Enzyme Inhibitor Start: 10-11-2024 End: 11-04-2024 Start: 08-12-2024 End: 08-24-2024 Start: 06-21-2018 End: 12-31-2018 Start: 01-16-2018 End: 01-29-2018 Start: 01-16-2018 End: 01-29-2018 take 5 mg by mouth once daily Lisinopril Discontinued 5 MG PO DAILY January 16, 2018 12:00am January 29, 2018 8:59am Start: 01-21-2015 End: 01-16-2018 1 ml LORazepam 2 mg/ml injec tion (2 sources) Benzodiazepine Start: 08-13-2024 End: 08-13-2024 losartan potassium 25 mg ora l tablet (20 sources) Angiotensin 2 Receptor Darwin Start: 11-19-2019 End: 08-29-2020 50 ml magnesium sulfate 40 m g/ml injection (6 sources) Start: 08-13-2024 End: 08-13-2024 Start: 07-26-2024 End: 07-28-2024 methylPREDNISolone 40 mg injection (4 sources) Corticosteroid Start: 08-12-2024 End: 08-13-2024 take 40 mg intravenously every six hours Start: 07-26-2024 End: 07-26-2024 take 40 mg intravenously every twelve hours mirtazapine 15 mg oral table t (18 sources) Start: 08-12-2024 End: 08-24-2024 Start: 08-02-2024 End: 08-10-2024 Start: 04-14-2024 End: 07-23-2024 mupirocin 0.02 mg/mg topical ointment (4 sources) RNA Synthetase Inhibitor Antibacterial Start: 08-12-2024 End: 08-17-2024 Start: 07-26-2024 End: 07-31-2024 1 ml naloxone hydrochloride 0.4 mg/ml injection (2 sources) Opioid Antagonist Start: 07-26-2024 End: 08-10-2024 nitrofurantoin, macrocrystal s 25 mg / nitrofurantoin, monohydrate 75 mg oral capsule (8 sources) Nitrofuran Antibacterial Start: 08-09-2024 End: 08-24-2024 nystatin [id number] unt/ml oral suspension (20 sources) Polyene Antifungal Start: 06-23-2018 End: 12-31-2018 ondansetron 8 mg oral tablet (20 sources) Serotonin-3 Receptor Antagonist Start: 08-20-2016 End: 01-29-2018 ZOFRAN 8 MG TABS PRN ONDANSETRON HCL [id number] Alyssia Ibanez RN RN oxyCODONE hydrochloride 5 mg oral tablet (2 sources) Opioid Agonist Start: 12-28-2024 End: 01-04-2025 pantoprazole 40 mg delayed r elease oral tablet (4 sources) Proton Pump Inhibitor Start: 08-15-2024 End: 08-24-2024 Start: 08-03-2024 End: 08-04-2024 piperacillin 4000 mg / tazobactam 500 mg injection (2 sources) Penicillin-class Antibacterial, beta Lactamase Inhibitor Start: 08-12-2024 End: 08-12-2024 polyethylene glycol 3350 170 00 mg powder for oral solution (4 sources) Osmotic Laxative Start: 08-17-2024 End: 08-24-2024 Start: 07-26-2024 End: 08-10-2024 take 17 g by mouth every twenty-four jesus rs as needed for constipation microencapsulated potassium chloride 10 meq extended release oral tablet (4 sources) Start: 08-22-2024 End: 08-22-2024 Start: 08-06-2024 End: 08-06-2024 Start: 08-06-2024 End: 08-06-2024 potassium gluconate 2.13 meq oral tablet (2 sources) Start: 12-16-2024 End: 01-06-2025 potassium phosphate 155 mg / sodium phosphate, dibasic 852 mg / sodium phosphate, monobasic 130 mg oral tablet (2 sources) Start: 07-29-2024 End: 07-29-2024 predniSONE 20 mg oral tablet (20 sources) Start: 01-06-2025 End: 01-27-2025 Start: 08-07-2024 End: 08-10-2024 Start: 05-13-2022 End: 07-04-2022 Start: 06-27-2021 End: 02-21-2022 Start: 06-23-2018 End: 07-30-2018 Start: 06-23-2018 End: 07-30-2018 Prednisone Discontinued 10 M G PO DIRECTED June 23, 2018 12:00am July 30, 2018 12:54pm TAKE 4 TABLETS BY MOUTH DAILY WITH FOOD FOR 3 DAYS, THEN TAKE 3 TABLETS BY MOUTH DAILY WITH FOOD FOR 3 DAYS, THEN TAKE 2 TABLETS BY MOUTH DAILY WITH FOOD FOR 3 DAYS, THEN TAKE 1 TABLETS BY MOUTH DAILY WITH FOOD FOR 3 DAYS, THEN STOP 100 ml propofol 10 mg/ml injection (2 sources) General Anesthetic Start: 07-26-2024 End: 07-30-2024 QUEtiapine 25 mg oral tablet (2 sources) Atypical Antipsychotic Start: 08-13-2024 End: 08-24-2024 10 ml sodium bicarbonate 84 mg/ml injection (2 sources) Start: 07-27-2024 End: 07-27-2024 5 ml sodium chloride 9 mg/ml injection (18 sources) Start: 08-21-2024 End: 08-24-2024 take 5-40 mL intravenously every eight hours Start: 08-13-2024 End: 08-24-2024 Start: 08-12-2024 End: 08-24-2024 Start: 08-01-2024 End: 08-10-2024 take 10 mL intraluminal route every twelve hours Start: 07-26-2024 End: 08-10-2024 Start: 07-26-2024 End: 08-10-2024 sodium polystyrene sulfonate 250 mg/ml oral suspension (14 sources) Start: 04-14-2024 End: 07-23-2024 tamsulosin hydrochloride 0.4 mg oral capsule (2 sources) alpha-Adrenergic Darwin Start: 08-22-2024 End: 08-24-2024 10 actuat tiotropium 0.0025 mg/actuat inhalation spray (20 sources) Anticholinergic Start: 08-12-2024 End: 08-24-2024 Start: 08-02-2024 End: 08-04-2024 Start: 06-21-2018 End: 09-12-2020 SPIRIVA HANDIHAL ER 18 MCG CAPS Daily TIOTROPIUM BROMIDE MONOHYDRATE [id number] Alyssia Ibanez RN RN varenicline 1 mg oral tablet (4 sources) Partial Cholinergic Nicotinic Agonist End: 01-21-2013 take 2 tablets by mouth once daily CHANTIX 1 MG TABS Two tablets by mouth daily VARENICLINE TARTRATE [id number] Edie Kearney MD (6 sources) Start: 08-22-2024 End: 08-22-2024 Start: 08-08-2024 End: 08-08-2024 Start: 08-04-2024 End: 08-04-2024 (2 sources) Start: 08-04-2024 End: 08-04-2024 (6 sources) Start: 07-31-2024 End: 08-01-2024 (12 sources) Start: 07-30-2024 End: 07-31-2024 Start: 07-27-2024 End: 07-27-2024 (6 sources) Start: 07-27-2024 End: 07-30-2024 (4 sources) Start: 08-21-2024 End: 08-21-2024 Start: 07-27-2024 End: 07-28-2024 (4 sources) Start: 07-26-2024 End: 07-30-2024 Start: 07-26-2024 End: 07-26-2024 (4 sources) Start: 07-26-2024 End: 07-30-2024 Start: 07-26-2024 End: 07-26-2024 (2 sources) Start: 07-26-2024 End: 07-27-2024 (2 sources) Start: 08-18-2024 End: 08-18-2024 (4 sources) Start: 08-14-2024 End: 08-14-2024 Start: 08-12-2024 End: 08-12-2024 (2 sources) Start: 08-12-2024 End: 08-12-2024 Problems Active Problems Problem Classification Problem Date Documented Da te Episodic/Chronic Acute cerebrovascular disease (18 sources) Hematoma of subdural space of neuraxis; Translations: [SDH (subdural hematoma) (HCC)] Onset: 07-26-2024 07-27-2024 Chronic Acute myocardial infarction (20 sources) Myocardial infarction; Translations: [Non-ST elevation (NSTEMI) myocardial infarction] Onset: 01-12-2018 06-20-2022 Chronic Anxiety disorders (2 sources) Anxiety disorder; Translations: [Anxiety disorder, unspecified] 02-18-2017 Chronic Anxiety disorders (9 sources) Anxiety disorder due to a general medical condition; Translations: [Anxiety disorder due to known physiological condition] Onset: 08-12-2024 08-12-2024 Episodic Cardiac dysrhythmias (20 sources) Intermittent palpitations; Translations: [Palpitations] Onset: 08-12-2024 01-31-2022 Episodic Chronic kidney disease (20 sources) Chronic kidney disease, unspecified; Translations: [Chronic kidney disease stage 4] Onset: 01-08-2017 01-08-2017 Chronic Chronic obstructive pulmonary disease and bronchiectasis (20 sources) Chronic obstructive lung disease; Translations: [Chronic obstructive pulmonary disease, unspecified] Onset: 07-26-2024 Chronic Coronary atherosclerosis and other heart disease (20 sources) Coronary atherosclerosis; Translations: [Atherosclerotic heart disease of [place] coronary artery without angina pectoris] Onset: 08-12-2024 02-17-2023 Chronic Deficiency and other anemia (20 sources) Anemia; Translations: [Anemia, unspecified] Onset: 07-26-2024 12-13-2022 Episodic Deficiency and other anemia (2 sources) Normocytic normochromic anemia; Translations: [Anemia, unspecified] 07-23-2024 Episodic Deficiency and other anemia (1 source) Anemia, unspecified; Translations: [Anemia, unspecified] Onset: 01-14-2025 Episodic Diabetes mellitus with complications (20 sources) Diabetes with neurological manifestations, type I [juvenile type], uncontrolled; Translations: [Diabetic ketoacidosis] Onset: 12-30-2012 12-30-2012 Chronic Diabetes mellitus without complication (20 sources) Type 1 diabetes mellitus; Translations: [Diabetes mellitus] Onset: 03-08-2009 02-23-2017 Chronic Disorders of lipid metabolism (20 sources) Mixed hyperlipidemia; Translations: [Hyperlipidemia] Onset: 01-08-2017 01-08-2017 Chronic Essential hypertension (20 sources) Hypertensive disorder; Translations: [Essential hypertension] Onset: 01-08-2017 01-08-2017 Chronic Fluid and electrolyte disorders (20 sources) Ketoacidosis; Translations: [Acidosis] Onset: 01-14-2025 06-21-2018 Episodic Genitourinary symptoms and ill-defined conditions (1 source) History of renal failure; Translations: [Personal history of other specified urinary system disorders] Episodic Hypertension with complications and secondary hypertension (1 source) Hypertensive chronic kidney disease with stage 5 chronic kidney disease or end stage renal disease; Translations: [Hypertensive chronic kidney disease with stage 5 chronic kidney disease or end stage renal disease] Onset: 01-13-2025 Chronic Mood disorders (11 sources) Depressive disorder; Translations: [Depressive disorder] Onset: 08-12-2024 02-18-2017 Chronic Nausea and vomiting (20 sources) Intractable nausea and vomiting; Translations: [Nausea with vomiting, unspecified] Onset: 08-12-2024 06-21-2018 Episodic Nutritional deficiencies (2 sources) Vitamin D deficiency; Translations: [Vitamin D deficiency, unspecified] 01-27-2025 Chronic Osteoporosis (5 sources) Osteoporosis; Translations: [Age-related osteoporosis without current pathological fracture] Onset: 01-27-2025 10-07-2024 Chronic Other circulatory disease (4 sources) Arteriovenous fistula; Translations: [Arteriovenous fistula, acquired] 01-11-2025 Chronic Other circulatory disease (20 sources) Low blood pressure; Translations: [Hypotension, unspecified] 01-31-2022 Episodic Other circulatory disease (1 source) H/O: heart disorder; Translations: [Personal history of other diseases of circulatory system] Episodic Other diseases of kidney and ureters (20 sources) Renal impairment; Translations: [Disorder of kidney and ureter, unspecified] 12-13-2022 Episodic Other disorders of stomach and duodenum (9 sources) Gastroparesis syndrome; Translations: [Gastroparesis] Onset: 08-12-2024 08-12-2024 Episodic Other endocrine disorders (6 sources) Hypoglycemia; Translations: [Hypoglycemia, unspecified] Onset: 08-12-2024 08-12-2024 Chronic Other gastrointestinal disorders (20 sources) Chronic constipation; Translations: [Other constipation] Onset: 08-12-2024 06-21-2018 Episodic Other gastrointestinal disorders (20 sources) [place]'s sign; Translations: [Other specified symptoms and signs involving the digestive system and abdomen] Onset: 08-12-2024 12-13-2022 Episodic Other gastrointestinal disorders (2 sources) Dysphagia; Translations: [Other dysphagia] 08-27-2024 Episodic Other lower respiratory disease (20 sources) Wheezing; Translations: [Wheezing] Onset: 10-29-2023 01-31-2022 Episodic Other lower respiratory disease (1 source) History of chronic obstructive airway disease; Translations: [Personal history of other diseases of respiratory system] Episodic Other lower respiratory disease (17 sources) Solitary nodule of lung; Translations: [Solitary pulmonary nodule] Onset: 02-06-2024 06-25-2023 Episodic Other lower respiratory disease (7 sources) Solitary pulmonary nodule; Translations: [Solitary pulmonary nodule] 06-25-2023 Episodic Other lower respiratory disease (11 sources) Multiple nodules of lung; Translations: [Other nonspecific abnormal finding of lung field] Onset: 05-17-2024 02-05-2024 Episodic Other lower respiratory disease (3 sources) Other nonspecific abnormal finding of lung field; Translations: [Other nonspecific abnormal finding of lung field] Onset: 03-24-2025 02-05-2024 Episodic Other lower respiratory disease (3 sources) H/O: pneumonia; Translations: [Personal history of pneumonia (recurrent)] 08-25-2024 Episodic Other lower respiratory disease (2 sources) Dyspnea on exertion; Translations: [Other forms of dyspnea] 05-05-2024 Episodic Other lower respiratory disease (3 sources) Hypercapnia; Translations: [Other abnormalities of breathing] 11-04-2024 Episodic Other lower respiratory disease (1 source) Other abnormalities of breathing; Translations: [Other abnormalities of breathing] Onset: 03-24-2025 Episodic Other lower respiratory disease (1 source) Shortness of breath; Translations: [Shortness of breath] Onset: 01-05-2025 Episodic Other nutritional; endocrine; and metabolic disorders (20 sources) Hypocalcemia; Translations: [Hypocalcemia] Onset: 07-26-2024 12-13-2022 Chronic Other nutritional; endocrine; and metabolic disorders (1 source) Hypocalcemia; Translations: [Hypocalcemia] Onset: 08-02-2024 Chronic Other nutritional; endocrine; and metabolic disorders (20 sources) Underweight; Translations: [Underweight] Onset: 04-14-2024 12-13-2022 Episodic Other nutritional; endocrine; and metabolic disorders (20 sources) Body mass index less than 16.5; Translations: [Body mass index (BMI) 19.9 or less, adult] 02-08-2021 Episodic Other nutritional; endocrine; and metabolic disorders (1 source) H/O: diabetes mellitus; Translations: [Personal history of other endocrine, metabolic, and immunity disorders] Episodic Other nutritional; endocrine; and metabolic disorders (3 sources) Body mass index (BMI) 19.9 or less, adult; Translations: [Body Mass Index less than 19, adult] 12-03-2023 Episodic Other nutritional; endocrine; and metabolic disorders (2 sources) Severe thinness in adulthood; Translations: [Underweight] 08-01-2024 Episodic Other skin disorders (20 sources) Lesion of skin of foot; Translations: [Changes in skin texture] Onset: 08-12-2024 12-13-2022 Episodic Other skin disorders (2 sources) Changes in skin texture; Translations: [Other specified disorders of skin] Episodic Pleurisy; pneumothorax; pulmonary collapse (7 sources) Bilateral pleural effusion; Translations: [Pleural effusion, not elsewhere classified] Onset: 01-06-2025 08-25-2024 Episodic Pneumonia (except that caused by tuberculosis or sexually transmitted disease) (10 sources) Pleural effusion associated with pulmonary infection; Translations: [Pneumonia, unspecified organism] Onset: 01-14-2025 01-03-2025 Episodic Poisoning by other medications and drugs (20 sources) Poisoning by unspecified drugs, medicaments and biological substances, accidental (unintentional), initial encounter; Translations: [Accidental drug ingestion] 08-26-2020 Episodic Residual codes; unclassified (20 sources) Tobacco user; Translations: [Tobacco use] 12-13-2022 Episodic Residual codes; unclassified (10 sources) Tobacco use; Translations: [Tobacco use disorder] Episodic Residual codes; unclassified (11 sources) Harmful pattern of use of nicotine; Translations: [Tobacco use] 07-14-2023 Episodic Residual codes; unclassified (1 source) Procedure and treatment not carried out due to patient leaving prior to being seen by health care provider; Translations: [Procedure and treatment not carried out due to patient leaving prior to being seen by health care provider] Onset: 01-05-2025 Episodic Respiratory failure; insufficiency; arrest (adult) (12 sources) Chronic respiratory failure; Translations: [Chronic respiratory failure with hypoxia] Onset: 01-14-2025 08-25-2024 Chronic Respiratory failure; insufficiency; arrest (adult) (20 sources) Hypoxemic respiratory failure; Translations: [Respiratory failure, unspecified with hypoxia] Onset: 08-12-2024 Episodic Screening or history of mental health and substance abuse (2 sources) Tobacco dependence syndrome; Translations: [Nicotine dependence, unspecified, with unspecified nicotine-induced disorders] Onset: 01-08-2017 01-08-2017 Chronic Substance-related disorders (20 sources) Cigarette smoker ; Translations: [Nicotine dependence, cigarettes, uncomplicated] Onset: 01-08-2017 Chronic Syncope (20 sources) Near syncope; Translations: [Syncope and collapse] 08-26-2020 Episodic Unclassified (1 source) Traumatic subdural hemorrhage with loss of consciousness status unknown, initial encounter ([facility]); Translations: [Traumatic subdural hemorrhage with loss of consciousness status unknown, initial encounter ([facility])] Onset: 07-26-2024 Unclassified (3 sources) PMH - PAST MEDICAL HISTORY OF 03-23-2009 Viral infection (2 sources) Disease caused by 2019-nCoV; Translations: [COVID-19] 07-23-2024 Episodic Viral infection (2 sources) COVID-19; Translations: [COVID-19] Onset: 08-02-2024 Past or Other Problems Problem Classification Problem Date Documented Da te Episodic/Chronic Acute and unspecified renal failure (20 sources) Injury of kidney; Translations: [Acute kidney failure, unspecified] Onset: 06-21-2018 Episodic Conditions associated with dizziness or vertigo (6 sources) Dizziness; Translations: [Dizziness and giddiness] Onset: 4 08-12-2024 Episodic Diabetes mellitus without complication (5 sources) Insulin pump present; Translations: [Presence of insulin pump (external) (internal)] Onset: 4 10-07-2024 Episodic Nonspecific chest pain (6 sources) Chest pain; Translations: [Chest pain, unspecified] Onset: 4 08-12-2024 Episodic Other gastrointestinal disorders (2 sources) H/O: gastrointestinal disease; Translations: [Personal history of other diseases of the digestive system] Onset: 3 01-21-2013 Episodic Other lower respiratory disease (1 source) Other forms of dyspnea; Translations: [Other forms of dyspnea] Onset: Episodic Other nutritional; endocrine; and metabolic disorders (1 source) Underweight; Translations: [Underweight] Onset: 4 Episodic Other screening for suspected conditions (not mental disorders or infectious disease) (3 sources) Patient encounter status; Translations: [Encounter for screening for osteoporosis] Onset: 4 08-01-2024 Episodic Other upper respiratory disease (4 sources) Retropharyngeal abscess; Translations: [Disorder of pharynx] Onset: 3 01-21-2013 Episodic Unclassified (1 source) Traumatic subdural hemorrhage with loss of consciousness status unknown, initial encounter ([facility]); Translations: [Traumatic subdural hemorrhage with loss of consciousness status unknown, initial encounter ([facility])] Onset: 4 Results Test Name Value Interpretation Reference Range Facility Surgery Visit Reporton 03-22 Surgery Visit Report Normal [facility] Endocrinology Visit Reporton 01-27-2025 Endocrinology Visit Report Normal [facility] Chest without Contraston Chest without Contrast Normal [facility] Surgery Visit Reporton 01-11 Surgery Visit Report Normal [facility] Basic Metabolic Profile (BMP )on 01-07-2025 BUN Normal - [facility] Comment on above: Result Comment: Canc elled via OM: Order cancelled - Patient discharged Performed By: #### L 100.0100, L500.2500 ####[facility] [address] [place], [address] BUN/CRE Normal 10-20 [facility] Comment on above: Result Comment: Canc elled via OM: Order cancelled - Patient discharged Performed By: #### L 100.0100, L500.2500 ####[facility] [address] [place], [address] Calcium Normal 7.6-11.0 [facility] Comment on above: Result Comment: Canc elled via OM: Order cancelled - Patient discharged Performed By: #### L 100.0100, L500.2500 ####[facility] [address] [place], [address] CL Normal 98-108 [facility] Comment on above: Result Comment: Canc elled via OM: Order cancelled - Patient discharged Performed By: #### L 100.0100, L500.2500 ####[facility] [address] [place], [address] CO2 Normal 21.0-32.0 [facility] Comment on above: Result Comment: Canc elled via OM: Order cancelled - Patient discharged Performed By: #### L 100.0100, L500.2500 ####[facility] [address] [place], [address] CREAT,SERUM Normal 0.70-1.20 [facility] Comment on above: Result Comment: Canc elled via OM: Order cancelled - Patient discharged Performed By: #### L 100.0100, L500.2500 ####[facility] [address] [place], [address] eGFR Normal >60 [facility] Comment on above: Result Comment: Canc elled via OM: Order cancelled - Patient discharged Performed By: #### L 100.0100, L500.2500 ####[facility] [address] [place], [address] GAP Normal 5-15 [facility] Comment on above: Result Comment: Canc elled via OM: Order cancelled - Patient discharged Performed By: #### L 100.0100, L500.2500 ####[facility] [address] [place], [address] GLU Normal 70-99 [facility] Comment on above: Result Comment: Canc elled via OM: Order cancelled - Patient discharged Performed By: #### L 100.0100, L500.2500 ####[facility] [address] [place], [address] Potassium Normal 3.3-5.1 [facility] Comment on above: Result Comment: Canc elled via OM: Order cancelled - Patient discharged Performed By: #### L 100.0100, L500.2500 ####[facility] [address] [place], [address] Basic Metabolic Profile (BMP) Normal 133-145 [facility] Comment on above: Result Comment: Canc elled via OM: Order cancelled - Patient discharged Performed By: #### L 100.0100, L500.2500 ####[facility] [address] [place], [address] CBC W/Diff, Automatedon 03-0 7-2024 Absolute Neut Normal 2.0-7.7 [facility] Comment on above: Result Comment: Canc elled via OM: Order cancelled - Patient discharged Performed By: #### L 100.0100, L500.2500 ####[facility] [address] [place], [address] HCT Normal 37-47 [facility] Comment on above: Result Comment: Canc elled via OM: Order cancelled - Patient discharged Performed By: #### L 100.0100, L500.2500 ####[facility] [address] [place], [address] HGB Normal 12.0-15.0 [facility] Comment on above: Result Comment: Canc elled via OM: Order cancelled - Patient discharged Performed By: #### L 100.0100, L500.2500 ####[facility] [address] [place], [address] MCH Normal 27.0-32.0 [facility] Comment on above: Result Comment: Canc elled via OM: Order cancelled - Patient discharged Performed By: #### L 100.0100, L500.2500 ####[facility] [address] [place], [address] MCHC Normal 32-36 [facility] Comment on above: Result Comment: Canc elled via OM: Order cancelled - Patient discharged Performed By: #### L 100.0100, L500.2500 ####[facility] [address] [place], [address] MCV Normal 81-99 [facility] Comment on above: Result Comment: Canc elled via OM: Order cancelled - Patient discharged Performed By: #### L 100.0100, L500.2500 ####[facility] [address] [place], [address] NEUT% Normal 47-70 [facility] Comment on above: Result Comment: Canc elled via OM: Order cancelled - Patient discharged Performed By: #### L 100.0100, L500.2500 ####[facility] [address] [place], [address] PLT Normal 150-450 [facility] Comment on above: Result Comment: Canc elled via OM: Order cancelled - Patient discharged Performed By: #### L 100.0100, L500.2500 ####[facility] [address] [place], [address] RBC Normal 4.2-5.4 [facility] Comment on above: Result Comment: Canc elled via OM: Order cancelled - Patient discharged Performed By: #### L 100.0100, L500.2500 ####[facility] [address] [place], [address] RDW CV Normal 11.6-14.6 [facility] Comment on above: Result Comment: Canc elled via OM: Order cancelled - Patient discharged Performed By: #### L 100.0100, L500.2500 ####[facility] [address] [place], [address] RDW SD Normal 35.1-43.9 [facility] Comment on above: Result Comment: Canc elled via OM: Order cancelled - Patient discharged Performed By: #### L 100.0100, L500.2500 ####[facility] [address] [place], [address] WBC Normal 4.4-11.0 [facility] Comment on above: Result Comment: Canc elled via OM: Order cancelled - Patient discharged Performed By: #### L 100.0100, L500.2500 ####[facility] [address] [place], [address] Absolute lymphocyte countOrd ered By: He aCt on 01-06-2025 Lymphocytes Auto (Unsp spec) [#/Vol] 0.66 10*3/uL Low 0.83-4.51 [facility] Absolute neutrophil countOrd ered By: He Cat on 01-06-2025 Absolute neutrophil count 9.7 X10^3/uL High 2.0-7.7 [facility] Anion gap [Moles/Vol]Ordered By: He Cat on 01-06-2025 Anion gap in Serum or Plasma 12 5-15 [facility] Anion gap in Serum or Plasma Ordered By: He Cat on 01-06-2025 Anion gap [Moles/Vol] 12 mmol/L 5-15 [facility] Automated lymphocyte count a s percentage of total leukocytesOrdered By: He Cat on 01-06-2025 Lymphocytes/100 WBC Auto (Unsp spec) 6.0 % Low 19-41 [facility] BUN/creatinine ratioOrdered By: He Cat on 01-06-2025 Urea nitrogen/Creatinine [Mass ratio] 13.0 mg/mg - [facility] BUN/creatinine ratio 13.0 RATIO - [facility] Basic Metabolic Profile (BMP )on 01-06-2025 BUN/CRE 13.0 RATIO Normal - [facility] Comment on above: Performed By: #### L 500.2500, L100.0100 ####[facility] [address] [place], [address] Calcium [Mass/Vol] 8.9 mg/dL Normal 7.6-11.0 [facility] Comment on above: Performed By: #### L 500.2500, L100.0100 ####[facility] [address] [place], [address] Chloride [Moles/Vol] 101 mmol/L Normal 98-108 [facility] Comment on above: Performed By: #### L 500.2500, L100.0100 ####[facility] [address] [place], [address] CO2 [Moles/Vol] 21.1 mmol/L Normal 21.0-32.0 [facility] Comment on above: Performed By: #### L 500.2500, L100.0100 ####[facility] [address] [place], [address] Creatinine [Mass/Vol] 3.23 mg/dL High 0.70-1.20 [facility] Comment on above: Performed By: #### L 500.2500, L100.0100 ####[facility] [address] [place], [address] ECRCL 12.75 ml/min Low 50-250 [facility] Comment on above: Performed By: #### L 500.2500, L100.0100 ####[facility] [address] [place], [address] GAP 12 Normal 5-15 [facility] Comment on above: Performed By: #### L 500.2500, L100.0100 ####[facility] [address] [place], [address] GFR/1.73 sq M.predicted among non-blacks MDRD (S/P/Bld) [Vol rate/Area] 15 mL/min/{1.73_m2} Low >60 [facility] Comment on above: Result Comment: mL/m in/1.73m2 CKD-EPI Creatinine Equation (2020) Performed By: #### L 500.2500, L100.0100 ####[facility] [address] [place], [address] Glucose [Mass/Vol] 337 mg/dL High 70-99 [facility] Comment on above: Performed By: #### L 500.2500, L100.0100 ####[facility] [address] [place], [address] Potassium [Moles/Vol] 5.6 mmol/L High 3.3-5.1 [facility] Comment on above: Performed By: #### L 500.2500, L100.0100 ####[facility] [address] [place], [address] Sodium [Moles/Vol] 134 mmol/L Normal 133-145 [facility] Comment on above: Performed By: #### L 500.2500, L100.0100 ####[facility] [address] [place], [address] Urea nitrogen [Mass/Vol] 42 mg/dL High 4-19 [facility] Comment on above: Performed By: #### L 500.2500, L100.0100 ####[facility] [address] [place], [address] Basophil percentageOrdered B y: He Cat on 01-06-2025 Basophils/100 WBC (Bld) 0.1 % 0-1 [facility] Bedside Glucoseon 01-06-2025 FINGERSTICK GLU 374 mg/dL High 74-106 [facility] Comment on above: Result Comment: SHELLY GEMENT OF PATIENT CARE PER NURSING PROTOCOL Performed By: #### L 501.080 ####[facility] [address] [place], [address] FINGERSTICK GLU 309 mg/dL High 74-106 [facility] Comment on above: Result Comment: SHELLY GEMENT OF PATIENT CARE PER NURSING PROTOCOL Performed By: #### L 501.080 ####[facility] [address] [place], [address] CBC W/Diff, Automatedon Absolute Lymph 0.66 X10 3/uL Low 0.83-4.51 [facility] Comment on above: Performed By: #### L 500.2500, L100.0100 ####[facility] [address] [place], [address] Absolute Neut 9.7 X10 3/uL High 2.0-7.7 [facility] Comment on above: Performed By: #### L 500.2500, L100.0100 ####[facility] [address] [place], [address] Basophils/100 WBC (Bld) 0.1 % Normal 0-1 [facility] Comment on above: Performed By: #### L 500.2500, L100.0100 ####[facility] [address] [place], [address] Eosinophils/100 WBC (Bld) 0.1 % Normal 0-5 [facility] Comment on above: Performed By: #### L 500.2500, L100.0100 ####[facility] [address] [place], [address] Erythrocyte distribution width (RBC) [Ratio] 13.0 % Normal 11.6-14.6 [facility] Comment on above: Performed By: #### L 500.2500, L100.0100 ####[facility] [address] [place], [address] Hematocrit (Bld) [Volume fraction] 28.8 % Low 37-47 [facility] Comment on above: Performed By: #### L 500.2500, L100.0100 ####[facility] [address] [place], [address] Hemoglobin (Bld) [Mass/Vol] 9.1 g/dL Low 12.0-15.0 [facility] Comment on above: Performed By: #### L 500.2500, L100.0100 ####[facility] [address] [place], [address] IG% 1.000 High 0.0-0.9 [facility] Comment on above: Result Comment: IG% - Immature Granulocytes (promyelocytes, myelocytes andmetamyelocytes) > 1% indicates that a LEFT SHIFT is Present. Performed By: #### L 500.2500, L100.0100 ####[facility] [address] [place], [address] Lymphocytes/100 WBC (Bld) 6.0 % Low 19-41 [facility] Comment on above: Performed By: #### L 500.2500, L100.0100 ####[facility] [address] [place], [address] MCH (RBC) [Entitic mass] 30.4 pg Normal 27.0-32.0 [facility] Comment on above: Performed By: #### L 500.2500, L100.0100 ####[facility] [address] [place], [address] MCHC (RBC) [Mass/Vol] 31.6 g/dL Low 32-36 [facility] Comment on above: Performed By: #### L 500.2500, L100.0100 ####[facility] [address] [place], [address] MCV (RBC) [Entitic vol] 96.3 fL Normal 81-99 [facility] Comment on above: Performed By: #### L 500.2500, L100.0100 ####[facility] [address] [place], [address] Monocytes/100 WBC (Bld) 4.8 % Normal 0-10 [facility] Comment on above: Performed By: #### L 500.2500, L100.0100 ####[facility] [address] [place], [address] Neutrophils/100 WBC (Bld) 88.0 % High 47-70 [facility] Comment on above: Performed By: #### L 500.2500, L100.0100 ####[facility] [address] [place], [address] Nucleated RBC (Bld) [#/Vol] 0 10*3/uL Normal 0-5 [facility] Comment on above: Performed By: #### L 500.2500, L100.0100 ####[facility] [address] [place], [address] Platelet mean volume (Bld) [Entitic vol] 9.8 fL Normal 6.2-12.0 [facility] Comment on above: Performed By: #### L 500.2500, L100.0100 ####[facility] [address] [place], [address] Platelets (Bld) [#/Vol] 229 10*3/uL Normal 150-450 [facility] Comment on above: Performed By: #### L 500.2500, L100.0100 ####[facility] [address] [place], [address] RBC (Bld) [#/Vol] 2.99 10*6/uL Low 4.2-5.4 [facility] Comment on above: Performed By: #### L 500.2500, L100.0100 ####[facility] [address] [place], [address] RDW SD 45.0 fl High 35.1-43.9 [facility] Comment on above: Performed By: #### L 500.2500, L100.0100 ####[facility] [address] [place], [address] WBC (Bld) [#/Vol] 11.0 10*3/uL Normal 4.4-11.0 [facility] Comment on above: Performed By: #### L 500.2500, L100.0100 ####[facility] [address] [place], [address] Calcium [Mass/Vol]Ordered By : He Cat on 01-06-2025 Serum or plasma calcium measurement (mass/volume) 8.9 mg/dL 7.6-11.0 [facility] Carbon dioxide, total [Moles /volume] in Central venous bloodOrdered By: He Cat on 01-06-2025 CO2 [Moles/Vol] 21.1 mmol/L 21.0-32.0 [facility] Carbon dioxide, total [Moles/volume] in Central venous blood 21.1 mmol/L 21.0-32.0 [facility] Chloride assayOrdered By: Sarbjit Cat on 01-06-2025 Chloride [Moles/Vol] 101 mmol/L 98-108 [facility] Chloride assay 101 mmol/L 98-108 [facility] Creatinine [Mass/Vol]Ordered By: He Cat on 01-06-2025 Serum creatinine measurement (mass/volume) 3.23 mg/dL High 0.70-1.20 [facility] Discharge Instructionon Discharge Instruction Normal [facility] Eosinophil percentageOrdered By: He Cat on 01-06-2025 Eosinophils/100 WBC (Bld) 0.1 % 0-5 [facility] Eosinophil percentage 0.1 % 0-1 [facility] Erythrocyte distribution wid th (RBC) [Entitic vol]Ordered By: He Cat on 01-06-2025 Erythrocyte distribution width standard deviation 45.0 fl High 35.1-43.9 [facility] Erythrocyte distribution wid th (RBC) [Ratio]Ordered By: He Cat on 01-06-2025 Erythrocyte distribution width ratio 13.0 % 11.6-14.6 [facility] Erythrocyte distribution wid th ratioOrdered By: He Cta on 01-06-2025 Erythrocyte distribution width (RBC) [Ratio] 13.0 % 11.6-14.6 [facility] Erythrocyte distribution wid th standard deviationOrdered By: He Cat on 01-06-2025 Erythrocyte distribution width (RBC) [Ratio] 45.0 fl High 35.1-43.9 [facility] Estimation of creatinine abdulkadir aranceOrdered By: He Cat on 01-06-2025 Estimation of creatinine clearance 12.75 ml/min Low 50-250 [facility] GFR/1.73 sq M.predicted kris g non-blacks MDRD (S/P/Bld) [Vol rate/Area]Ordered By: He Cat on 01-06-2025 Glomerular filtration rate (GFR) estimation/1.73 sq m using serum, plasma, or whole b 15 Low >60 [facility] Glomerular filtration rate ( GFR) estimation/1.73 sq m using serum, plasma, or whole bOrdered By: He Cat on 01-06-2025 GFR/1.73 sq M.predicted among non-blacks MDRD (S/P/Bld) [Vol rate/Area] 15 mL/min/{1.73_m2} Low >60 [facility] Glucose [Mass/Vol]Ordered By : He Cat on 01-06-2025 Serum glucose measurement (mass/volume) 337 mg/dL High 70-99 [facility] Glucose measurement at bedsi deOrdered By: He Cat on 01-06-2025 Glucose [Mass/Vol] 374 mg/dL High 74-106 [facility] Glucose measurement at bedside 374 mg/dL High 74-106 [facility] Hematocrit Auto (Bld) [Volum e fraction]Ordered By: He Cat on 01-06-2025 Hematocrit (Bld) [Volume fraction] 28.8 % Low 37-47 [facility] Automated blood hematocrit (percentage) 28.8 % Low 37-47 [facility] Hemoglobin measurementOrdere d By: He Cat on 01-06-2025 Hemoglobin (Bld) [Mass/Vol] 9.1 g/dL Low 12.0-15.0 [facility] Hemoglobin measurement 9.1 g/dL Low 12.0-15.0 [facility] Immature granulocytes/100 WB C Auto (Bld)Ordered By: He Cat on 01-06-2025 Immature granulocytes/100 WBC (Bld) 1.000 % High 0.0-0.9 [facility] Automated immature granulocyte percentage 1.000 % High 0.0-0.9 [facility] Lymphocytes Auto (Unsp spec) [#/Vol]Ordered By: He Cat on 01-06-2025 Absolute lymphocyte count 0.66 X10^3/uL Low 0.83-4.51 [facility] Lymphocytes/100 WBC Auto (Un sp spec)Ordered By: He Cat on 01-06-2025 Automated lymphocyte count as percentage of total leukocytes 6.0 % Low 19-41 [facility] MCV (RBC) [Entitic vol]Order ed By: He Cat on 01-06-2025 MCV (mean corpuscular volume) determination 96.3 fL 81-99 [facility] MCV (mean corpuscular volume ) determinationOrdered By: He Cat on 01-06-2025 MCV (RBC) [Entitic vol] 96.3 fL 81-99 [facility] Mean corpuscular hemoglobin (MCH) determinationOrdered By: He Cat on 01-06-2025 MCH (RBC) [Entitic mass] 30.4 pg 27.0-32.0 [facility] Mean corpuscular hemoglobin (MCH) determination 30.4 pg 27.0-32.0 [facility] Mean corpuscular hemoglobin concentration (MCHC) determinationOrdered By: He Cat on 01-06-2025 Mean corpuscular hemoglobin concentration (MCHC) determination 31.6 g/dL Low 32-36 [facility] Mean platelet volume determi nationOrdered By: He Cat on 01-06-2025 Mean platelet volume determination 9.8 fl 6.2-12.0 [facility] Monocyte percentageOrdered B y: He Cat on 01-06-2025 Monocytes/100 WBC (Bld) 4.8 % 0-10 [facility] Monocyte percentage 4.8 % 0-10 [facility] Neutrophil percentageOrdered By: He Cat on 01-06-2025 Neutrophils/100 WBC (Bld) 88.0 % High 47-70 [facility] Neutrophil percentage 88.0 % High 47-70 [facility] Nucleated red blood cell per centageOrdered By: He Cat on 01-06-2025 Nucleated red blood cell percentage 0 % 0-5 [facility] Platelet countOrdered By: Sarbjit Cat on 01-06-2025 Platelets (Bld) [#/Vol] 229 10*3/uL 150-450 [facility] Platelet count 229 K/mm3 150-450 [facility] Potassium (Unsp spec) [Mass/ Vol]Ordered By: He Cat on 01-06-2025 Potassium measurement (mass/volume) 5.6 mmol/L High 3.3-5.1 [facility] Potassium measurement (mass/ volume)Ordered By: He Cat on 01-06-2025 Potassium (Unsp spec) [Mass/Vol] 5.6 mmol/L High 3.3-5.1 [facility] RBC Auto (Bld) [#/Vol]Ordere d By: He Cat on 01-06-2025 RBC (Bld) [#/Vol] 2.99 10*6/uL Low 4.2-5.4 [facility] Automated blood erythrocyte count 2.99 M/mm3 Low 4.2-5.4 [facility] Serum creatinine measurement (mass/volume)Ordered By: He Cat on 01-06-2025 Creatinine [Mass/Vol] 3.23 mg/dL High 0.70-1.20 [facility] Serum glucose measurement (m ass/volume)Ordered By: He Cat on 01-06-2025 Glucose [Mass/Vol] 337 mg/dL High 70-99 [facility] Serum or plasma calcium lesly urement (mass/volume)Ordered By: He Cat on 01-06-2025 Calcium [Mass/Vol] 8.9 mg/dL 7.6-11.0 [facility] Serum or plasma urea nitroge n measurement (mass/volume)Ordered By: He Cat on 01-06-2025 Urea nitrogen [Mass/Vol] 42 mg/dL High 02-19 [facility] Sodium levelOrdered By: Samantha Cta on 01-06-2025 Sodium [Moles/Vol] 134 mmol/L 133-145 [facility] Sodium level 134 mmol/L 133-145 [facility] Urea nitrogen [Mass/Vol]Orde red By: He Cat on 01-06-2025 Serum or plasma urea nitrogen measurement (mass/volume) 42 mg/dL High 02-19 [facility] White blood cell (WBC) count Ordered By: He Cat on 01-06-2025 WBC (Bld) [#/Vol] 11.0 10*3/uL 4.4-11.0 [facility] White blood cell (WBC) count 11.0 K/mm3 4.4-11.0 [facility] Albumin [Mass/Vol]Ordered By : Christy Huerta on 01-05-2025 Serum or plasma albumin measurement (mass/volume) 3.4 g/dL 3.4-4.8 [facility] Arterial patency Wrist arter y --pre arterial punctureOrdered By: He Cta on 01-05-2025 Assessment of wrist artery patency prior to arterial puncture Positive [facility] Assessment of wrist artery p atency prior to arterial punctureOrdered By: He Cat on 01-05-2025 Arterial patency Wrist artery --pre arterial puncture Positive [facility] Base excess Calc (BldV) [Mol es/Vol]Ordered By: He Cat on 01-05-2025 Blood base excess determination -1 mmol/L -2-2 [facility] Bedside Glucoseon 01-05-2025 FINGERSTICK GLU 338 mg/dL High 74-106 [facility] Comment on above: Result Comment: SHELLY ENGEL OF PATIENT CARE PER NURSING PROTOCOL Performed By: #### L 501.209 ####[facility] [address] [place], [address] FINGERSTICK GLU 292 mg/dL High 74-106 [facility] Comment on above: Result Comment: SHELLY GEMENT OF PATIENT CARE PER NURSING PROTOCOL Performed By: #### L 501.080 ####[facility] [address] [place], [address] FINGERSTICK GLU 419 mg/dL High 74-106 [facility] Comment on above: Result Comment: SHELLY GEMENT OF PATIENT CARE PER NURSING PROTOCOL Performed By: #### L 501.080 ####[facility] [address] [place], [address] FINGERSTICK GLU 286 mg/dL High 74-106 [facility] Comment on above: Result Comment: SHELLY GEMENT OF PATIENT CARE PER NURSING PROTOCOL Performed By: #### L 501.080 ####[facility] [address] [place], [address] Blood Gases by [facility] 025 TINY TEST Positive Normal [facility] Comment on above: Performed By: #### L 9000.0800 ####[facility] [address] [place], [address] Base excess Calc (Bld) [Moles/Vol] -1 mmol/L Normal -2 to +2 [facility] Comment on above: Performed By: #### L 9000.0800 ####[facility] [address] [place], [address] Blood Gas Type ART Normal [facility] Comment on above: Performed By: #### L 9000.0800 ####[facility] [address] [place], [address] Comment Normal [facility] Comment on above: Result Comment: Bipa p settings of IPAP 18, EPAP 8, fio2 30 % Performed By: #### L 9000.0800 ####[facility] [address] [place], [address] FI02 30.0 Normal [facility] Comment on above: Performed By: #### L 8999.0800 ####[facility] [address] [place], [address] Mode Not entered Normal [facility] Comment on above: Performed By: #### L 8999.0800 ####[facility] [address] [place], [address] O2 Delivery Dev BiPAP Normal [facility] Comment on above: Performed By: #### L 8999.0800 ####[facility] [address] [place], [address] pCO2 55.0 mmHg High 35-45 [facility] Comment on above: Performed By: #### L 8999.0800 ####[facility] [address] [place], [address] pH (Bld) 7.28 [pH] Low 7.35-7.45 [facility] Comment on above: Performed By: #### L 8999.0800 ####[facility] [address] [place], [address] PO2 87 mmHG Normal 75-100 [facility] Comment on above: Performed By: #### L 8999.0800 ####[facility] [address] [place], [address] SITE L Radial Normal [facility] Comment on above: Performed By: #### L 8999.0800 ####[facility] [address] [place], [address] SO2 95 Normal 95-99 [facility] Comment on above: Performed By: #### L 8999.0800 ####[facility] [address] [place], [address] Blood base excess determinat ionOrdered By: He Cat on 01-05-2025 Base excess Calc (BldV) [Moles/Vol] -1 mmol/L -2-2 [facility] Blood bicarbonate measuremen tOrdered By: He Cat on 01-05-2025 HCO3 (Bld) [Moles/Vol] 25.6 mmol/L Normal - [facility] Comment on above: Performed By: #### L 9000.0800 ####[facility] [address] [place], [address] Blood bicarbonate measurement 25.6 mmol/L [facility] CBC-Complete Blood Cnt No Di ffon 01-05-2025 Erythrocyte distribution width (RBC) [Ratio] 12.9 % Normal 11.6-14.6 [facility] Comment on above: Performed By: #### L 500.3600, L100.0500 ####[facility] [address] [place], [address] Hematocrit (Bld) [Volume fraction] 29.6 % Low 37-47 [facility] Comment on above: Performed By: #### L 500.3600, L100.0500 ####[facility] [address] [place], [address] Hemoglobin (Bld) [Mass/Vol] 9.4 g/dL Low 12.0-15.0 [facility] Comment on above: Performed By: #### L 500.3600, L100.0500 ####[facility] [address] [place], [address] MCH (RBC) [Entitic mass] 30.3 pg Normal 27.0-32.0 [facility] Comment on above: Performed By: #### L 500.3600, L100.0500 ####[facility] [address] [place], [address] MCHC (RBC) [Mass/Vol] 31.8 g/dL Low 32-36 [facility] Comment on above: Performed By: #### L 500.3600, L100.0500 ####[facility] [address] [place], [address] MCV (RBC) [Entitic vol] 95.5 fL Normal 81-99 [facility] Comment on above: Performed By: #### L 500.3600, L100.0500 ####[facility] [address] [place], [address] Platelet mean volume (Bld) [Entitic vol] 10.0 fL Normal 6.2-12.0 [facility] Comment on above: Performed By: #### L 500.3600, L100.0500 ####[facility] [address] [place], [address] Platelets (Bld) [#/Vol] 235 10*3/uL Normal 150-450 [facility] Comment on above: Performed By: #### L 500.3600, L100.0500 ####[facility] [address] [place], [address] RBC (Bld) [#/Vol] 3.10 10*6/uL Low 4.2-5.4 [facility] Comment on above: Performed By: #### L 500.3600, L100.0500 ####[facility] [address] [place], [address] RDW SD 44.2 fl High 35.1-43.9 [facility] Comment on above: Performed By: #### L 500.3600, L100.0500 ####[facility] [address] [place], [address] WBC (Bld) [#/Vol] 10.5 10*3/uL Normal 4.4-11.0 [facility] Comment on above: Performed By: #### L 500.3600, L100.0500 ####[facility] [address] [place], [place], [address] Consultation - Intensiviston 01-05-2025 Consultation - Certified Real Estate Appraiser Normal [facility] Determination of fraction of inspired oxygenOrdered By: He Cat on 01-05-2025 Determination of fraction of inspired oxygen 30.0 [facility] HbA1c (Bld) [Mass fraction]O rdered By: He Cat on 01-05-2025 Hemoglobin A1c percentage 6.6 % >5.7 [facility] Hemoglobin A1con 01-05-2025 HbA1c (Bld) [Mass fraction] 6.6 % Normal <=5.6 [facility] Comment on above: Performed By: #### L 501.9985 ####[facility] [address] [place], [place], [address] Hemoglobin A1c percentageOrd ered By: He Cat on 01-05-2025 HbA1c (Bld) [Mass fraction] 6.6 % >5.7 [facility] L509.7001on 01-05-2025 Procalcitonin 2.31 ng/mL High <=0.10 [facility] Comment on above: Result Comment: Inte rpretation:<0.10-0.25 ng/mL: Antibiotic therapy discouraged. Bacterialinfection unlikely.0.25-0.50 ng/mL: Antibiotic therapy encouraged. Bacterialinfection possible.>0.50 ng/mL: Antibiotic therapy strongly encouraged.Suggestive of presence of bacterial infection.PCT should always be interpreted in the clinical context ofthe patient. Therefore, clinicians should use the PCTresults in conjunction with other laboratory findings andclinical signs of the patient. Performed By: #### L 509.7001 ####[facility] [address] [place], [place], [address] Measurement, pHOrdered By: Isabelle Cat on 01-05-2025 pH (Unsp spec) 7.28 [pH] Low 7.35-7.45 [facility] No Panel InformationOrdered By: He Cat on 01-05-2025 ART [facility] L Radial [facility] Not entered [facility] BiPAP [facility] See comment [facility] No Panel InformationOrdered By: Terrance Alva on 01-05-2025 2.31 ng/mL High <0.11 [facility] Oxygen saturation measuremen tOrdered By: He Cat on 01-05-2025 Oxygen saturation measurement 95 % 95-99 [facility] Partial pressure of carbon d ioxide measurementOrdered By: He Cat on 01-05-2025 Partial pressure of carbon dioxide measurement 55.0 mmHg High 35-45 [facility] Partial pressure of oxygen m easurementOrdered By: He Cat on 01-05-2025 Partial pressure of oxygen measurement 87 mmHG 75-100 [facility] RESPIRATORY PANEL MOLECULARo n 01-05-2025 RP PANEL Normal [facility] Comment on above: Performed By: #### M 100.638 ####[facility] [address] [place], [address] Renal Profileon 01-05-2025 Albumin [Mass/Vol] 3.4 g/dL Normal 3.4-4.8 [facility] Comment on above: Performed By: #### L 500.3600, L100.0500 ####[facility] [address] [place], [address] BUN/CRE 10.7 RATIO Normal 10-20 [facility] Comment on above: Performed By: #### L 500.3600, L100.0500 ####[facility] [address] [place], [address] Calcium [Mass/Vol] 9.2 mg/dL Normal 7.6-11.0 [facility] Comment on above: Performed By: #### L 500.3600, L100.0500 ####[facility] [address] [place], [address] Chloride [Moles/Vol] 95 mmol/L Low 98-108 [facility] Comment on above: Performed By: #### L 500.3600, L100.0500 ####[facility] [address] [place], [address] CO2 [Moles/Vol] 23.6 mmol/L Normal 21.0-32.0 [facility] Comment on above: Performed By: #### L 500.3600, L100.0500 ####[facility] [address] [place], [address] Creatinine [Mass/Vol] 3.67 mg/dL High 0.70-1.20 [facility] Comment on above: Performed By: #### L 500.3600, L100.0500 ####[facility] [address] [place], [address] ECRCL 11.77 ml/min Low 50-250 [facility] Comment on above: Performed By: #### L 500.3600, L100.0500 ####[facility] [address] [place], [address] GAP 11 Normal 5-15 [facility] Comment on above: Performed By: #### L 500.3600, L100.0500 ####[facility] [address] [place], [address] GFR/1.73 sq M.predicted among non-blacks MDRD (S/P/Bld) [Vol rate/Area] 13 mL/min/{1.73_m2} Low >60 [facility] Comment on above: Result Comment: mL/m in/1.73m2 CKD-EPI Creatinine Equation (2020) Performed By: #### L 500.3600, L100.0500 ####[facility] [address] [place], [address] Glucose [Mass/Vol] 301 mg/dL High 70-99 [facility] Comment on above: Performed By: #### L 500.3600, L100.0500 ####[facility] [address] [place], [address] Potassium [Moles/Vol] 6.1 mmol/L Invalid Interpretation Code 3.3-5.1 [facility] Comment on above: Result Comment: Crit ical Result(s) Called at 01/05/2025-09:34 by Kalia Tong??Results read back by same. Performed By: #### L 500.3600, L100.0500 ####[facility] [address] [place], [address] Sodium [Moles/Vol] 130 mmol/L Low 133-145 [facility] Comment on above: Performed By: #### L 500.3600, L100.0500 ####[facility] [address] [place], [address] Urea nitrogen [Mass/Vol] 39 mg/dL High 4-19 [facility] Comment on above: Performed By: #### L 500.3600, L100.0500 ####[facility] [address] [place], [address] Respiratory pathogens detect ion panel by molecular detection methodOrdered By: Terrance Alva on 01-05-2025 Respiratory pathogens DNA and RNA panel MARISA+probe (Resp) [facility] Serum or plasma albumin lesly urement (mass/volume)Ordered By: Christy Huerta on 01-05-2025 Albumin [Mass/Vol] 3.4 g/dL 3.4-4.8 [facility] Serum or plasma vancomycin m easurement (mass/volume)Ordered By: He Cat on 01-05-2025 Vancomycin [Mass/Vol] 15.1 ug/mL High 0.0-15.0 [facility] Serum phosphorus measurement Ordered By: Christy Huerta on 01-05-2025 Serum phosphorus measurement 4.3 mg/dL 2.7-4.5 [facility] Total carbon dioxide measure mentOrdered By: He Cat on 01-05-2025 CO2 [Moles/Vol] 27 mmol/L Normal [facility] Comment on above: Performed By: #### L 9000.0800 ####[facility] [address] [place], [address] Total carbon dioxide measurement 27 mmol/L [facility] Vancomycin [Mass/Vol]Ordered By: He Cat on 01-05-2025 Serum or plasma vancomycin measurement (mass/volume) 15.1 ug/mL High 0.0-15.0 [facility] Vancomycin, Random Levelon 0 01-05-2025 VANCO, RANDOM 15.1 ug/mL High 0.0-15.0 [facility] Comment on above: Order Comment: Comme nts: BEFORE HEMODIALYSIS Result Comment: VANC OMYCIN STANDARD DRUG THERAPY: CRITICAL VALUE IS > 15.0 mg/LVANCOMYCIN HIGH INTENSITY THERAPY: CRITICAL VALUE IS > 20.0 mg/LPLEASE CONTACT PHARMACY SERVICES (#9322) FOR INTERPRETATIONOF RESULTS. THIS RESULT DOES NOT REPRESENT A PEAK OR TROUGHLEVEL FOR THIS DRUG. Performed By: #### L 501.8850 ####[facility] [address] [place], [address] pH (Unsp spec)Ordered By: Sarbjit Cat on 01-05-2025 Measurement, pH 7.28 Low 7.35-7.45 [facility] Basic Metabolic Profile (BMP )on 01-04-2025 BUN/CRE 9.2 RATIO Low 10-20 [facility] Comment on above: Performed By: #### L 100.0100, L500.2500 ####[facility] [address] [place], [address] Calcium [Mass/Vol] 9.8 mg/dL Normal 7.6-11.0 [facility] Comment on above: Performed By: #### L 100.0100, L500.2500 ####[facility] [address] [place], [address] Chloride [Moles/Vol] 94 mmol/L Low 98-108 [facility] Comment on above: Performed By: #### L 100.0100, L500.2500 ####[facility] [address] [place], [address] CO2 [Moles/Vol] 26.9 mmol/L Normal 21.0-32.0 [facility] Comment on above: Performed By: #### L 100.0100, L500.2500 ####[facility] [address] [place], [address] Creatinine [Mass/Vol] 4.27 mg/dL High 0.70-1.20 [facility] Comment on above: Performed By: #### L 100.0100, L500.2500 ####[facility] [address] [place], [address] ECRCL 10.41 ml/min Low 50-250 [facility] Comment on above: Performed By: #### L 100.0100, L500.2500 ####[facility] [address] [place], [address] GAP 8 Normal 5-15 [facility] Comment on above: Performed By: #### L 100.0100, L500.2500 ####[facility] [address] [place], [address] GFR/1.73 sq M.predicted among non-blacks MDRD (S/P/Bld) [Vol rate/Area] 11 mL/min/{1.73_m2} Low >60 [facility] Comment on above: Result Comment: mL/m in/1.73m2 CKD-EPI Creatinine Equation (2020) Performed By: #### L 100.0100, L500.2500 ####[facility] [address] [place], [address] Glucose [Mass/Vol] 256 mg/dL High 70-99 [facility] Comment on above: Performed By: #### L 100.0100, L500.2500 ####[facility] [address] [place], [address] Potassium [Moles/Vol] 5.4 mmol/L High 3.3-5.1 [facility] Comment on above: Performed By: #### L 100.0100, L500.2500 ####[facility] [address], [address] Sodium [Moles/Vol] 129 mmol/L Low 133-145 [facility] Comment on above: Performed By: #### L 100.0100, L500.2500 ####[facility] [address] [place], [address] Urea nitrogen [Mass/Vol] 39 mg/dL High 4-19 [facility] Comment on above: Performed By: #### L 100.0100, L500.2500 ####[facility] [address] [place], [address] Bedside Glucoseon 01-04-2025 FINGERSTICK GLU 308 mg/dL High 74-106 [facility] Comment on above: Result Comment: SHELLY GEMENT OF PATIENT CARE PER NURSING PROTOCOL Performed By: #### L 501.080 ####[facility] [address] [place], [address] FINGERSTICK GLU 133 mg/dL High 74-106 [facility] Comment on above: Result Comment: SHELLY GEMENT OF PATIENT CARE PER NURSING PROTOCOL Performed By: #### L 501.080 ####[facility] [address] [place], [address] FINGERSTICK GLU 282 mg/dL High 74-106 [facility] Comment on above: Result Comment: SHELLY GEMENT OF PATIENT CARE PER NURSING PROTOCOL Performed By: #### L 501.080 ####[facility] [address] [place], [address] FINGERSTICK GLU 37 mg/dL Invalid Interpretation Code 74-106 [facility] Comment on above: Result Comment: [facility] GivenMANAGEMENT OF PATIENT CARE PER NURSING PROTOCOL Performed By: #### L 501.080 ####[facility] [address] [place], [address] FINGERSTICK GLU 33 mg/dL Invalid Interpretation Code 74-106 [facility] Comment on above: Result Comment: [facility] k GivenMANAGEMENT OF PATIENT CARE PER NURSING PROTOCOL Performed By: #### L 501.080 ####[facility] [address] [place], [address] FINGERSTICK GLU 303 mg/dL High [address] [place] [address] Comment on above: Result Comment: SHELLY GEMENT OF PATIENT CARE PER NURSING PROTOCOL Performed By: #### L 501.080 ####[facility] [address] [place], [address] FINGERSTICK GLU 188 mg/dL High [address] [place] [address] Comment on above: Result Comment: SHELLY GEMENT OF PATIENT CARE PER NURSING PROTOCOL Performed By: #### L 501.080 ####[facility] [address] [place], [address] FINGERSTICK GLU 132 mg/dL High [address] [place] [address] Comment on above: Result Comment: SHELLY GEMENT OF PATIENT CARE PER NURSING PROTOCOL Performed By: #### L 501.080 ####[facility] [address] [place], [address] FINGERSTICK GLU 153 mg/dL High -[address] [place] [address] Comment on above: Result Comment: SHELLY GEMENT OF PATIENT CARE PER NURSING PROTOCOL Performed By: #### L 501.080 ####[facility] [address] [place], [address] FINGERSTICK GLU 173 mg/dL High [address] [place] [address] Comment on above: Result Comment: SHELLY GEMENT OF PATIENT CARE PER NURSING PROTOCOL Performed By: #### L 501.080 ####[facility] [address] [place], [address] FINGERSTICK GLU 251 mg/dL High 74-106 [facility] Comment on above: Result Comment: SHELLY GEMENT OF PATIENT CARE PER NURSING PROTOCOL Performed By: #### L 501.080 ####[facility] [address] [place], [address] FINGERSTICK GLU 244 mg/dL High 74-106 [facility] Comment on above: Result Comment: SHELLY GEMENT OF PATIENT CARE PER NURSING PROTOCOL Performed By: #### L 501.080 ####[facility] [address] [place], [address] FINGERSTICK GLU 170 mg/dL High 74-106 [facility] Comment on above: Result Comment: SHELLY GEMENT OF PATIENT CARE PER NURSING PROTOCOL Performed By: #### L 501.080 ####[facility] [address] [place], [address] Blood Gases by [facility] 025 TINY TEST Positive Normal [facility] Comment on above: Performed By: #### L 9000.0800 ####[facility] [address] [place], [address] Base excess Calc (Bld) [Moles/Vol] 7 mmol/L High -2 to +2 [facility] Comment on above: Performed By: #### L 9000.0800 ####[facility] [address] [place], [address] Blood Gas Type ART Normal [facility] Comment on above: Performed By: #### L 9000.0800 ####[facility] [address] [place], [address] CO2 [Moles/Vol] 36 mmol/L Normal [facility] Comment on above: Performed By: #### L 9000.0800 ####[facility] [address] [place], [address] Comment Normal [facility] Comment on above: Result Comment: Bipa p settings of 15/8 rate of 12, fio2 30% Performed By: #### L 9000.0800 ####[facility] [address] [place], [address] FI02 30.0 Normal [facility] Comment on above: Performed By: #### L 9000.0800 ####[facility] [address] [place], [address] HCO3 (Bld) [Moles/Vol] 33.3 mmol/L High 22-26 [facility] Comment on above: Performed By: #### L 9000.0800 ####[facility] [address] [place], [address] Mode Not entered Normal [facility] Comment on above: Performed By: #### L 9000.0800 ####[facility] [address] [place], [address] O2 Delivery Dev BiPAP Normal [facility] Comment on above: Performed By: #### L 9000.0800 ####[facility] [address] [place], [address] pCO2 71.6 mmHg Invalid Interpretation Code 35-45 [facility] Comment on above: Performed By: #### L 9000.0800 ####[facility] [address] [place], [address] pH (Bld) 7.28 [pH] Low 7.35-7.45 [facility] Comment on above: Performed By: #### L 9000.0800 ####[facility] [address] [place], [address] PO2 69 mmHG Low 75-100 [facility] Comment on above: Performed By: #### L 9000.0800 ####[facility] [address] [place], [address] Read Back By Yes Normal [facility] Comment on above: Performed By: #### L 9000.0800 ####[facility] [address] [place], [address] SITE % Normal [facility] Comment on above: Performed By: #### L 9000.0800 ####[facility] [address] [place], [address] SO2 90 Low 95-99 [facility] Comment on above: Performed By: #### L 9000.0800 ####[facility] [address] [place], [address] TINY TEST Positive Normal [facility] Comment on above: Performed By: #### L 9000.0800 ####[facility] [address] [place], [address] Base excess Calc (Bld) [Moles/Vol] 4 mmol/L High -2 to +2 [facility] Comment on above: Performed By: #### L 9000.0800 ####[facility] [address] [place], [address] Blood Gas Type ART Normal [facility] Comment on above: Performed By: #### L 9000.0800 ####[facility] [address] [place], [address] CO2 [Moles/Vol] 34 mmol/L Normal [facility] Comment on above: Performed By: #### L 9000.0800 ####[facility] [address] [place], [address] FI02 3.0 Normal [facility] Comment on above: Performed By: #### L 9000.0800 ####[facility] [address] [place], [address] HCO3 (Bld) [Moles/Vol] 31.3 mmol/L High 22-26 [facility] Comment on above: Performed By: #### L 9000.0800 ####[facility] [address] [place], [address] Mode Not entered [facility] Comment on above: Performed By: #### L 9000.0800 ####[facility] [address] [place], [address] O2 Delivery Dev Cannula Normal [facility] Comment on above: Performed By: #### L 9000.0800 ####[facility] [address] [place], [address] pCO2 72.6 mmHg Invalid Interpretation Code 35-45 [facility] Comment on above: Performed By: #### L 9000.0800 ####[facility] [address] [place], [address] pH (Bld) 7.24 [pH] Low 7.35-7.45 [facility] Comment on above: Performed By: #### L 9000.0800 ####[facility] [address] [place], [address] PO2 86 mmHG Normal 75-100 [facility] Comment on above: Performed By: #### L 9000.0800 ####[facility] [address] [place], [address] Read Back By Yes [facility] Comment on above: Performed By: #### L 9000.0800 ####[facility] [address] [place], [address] Results To pradeep [facility] Comment on above: Performed By: #### L 9000.0800 ####[facility] [address] [place], [address] SITE L Radial Normal [facility] Comment on above: Performed By: #### L 9000.0800 ####[facility] [address] [place], [address] SO2 94 Low 95-99 [facility] Comment on above: Performed By: #### L 9000.0800 ####[facility] [address] [place], [address] Time Given 10:46:25 Normal [facility] Comment on above: Performed By: #### L 9000.0800 ####[facility] [address] [place], [address] CBC W/Diff, Automatedon 03-0 4-2024 Absolute Lymph 2.60 X10 3/uL Normal 0.83-4.51 [facility] Comment on above: Performed By: #### L 100.0100, L500.2500 ####[facility] [address] [place], [address] Absolute Neut 7.4 X10 3/uL Normal 2.0-7.7 [facility] Comment on above: Performed By: #### L 100.0100, L500.2500 ####[facility] [address] [place], [address] Basophils/100 WBC (Bld) 0.6 % Normal 0-1 [facility] Comment on above: Performed By: #### L 100.0100, L500.2500 ####[facility] [address] [place], [address] Eosinophils/100 WBC (Bld) 6.4 % High 0-5 [facility] Comment on above: Performed By: #### L 100.0100, L500.2500 ####[facility] [address] [place], [address] Erythrocyte distribution width (RBC) [Ratio] 12.5 % Normal 11.6-14.6 [facility] Comment on above: Performed By: #### L 100.0100, L500.2500 ####[facility] [address] [place], [address] Hematocrit (Bld) [Volume fraction] 29.7 % Low 37-47 [facility] Comment on above: Performed By: #### L 100.0100, L500.2500 ####[facility] [address] [place], [address] Hemoglobin (Bld) [Mass/Vol] 9.2 g/dL Low 12.0-15.0 [facility] Comment on above: Performed By: #### L 100.0100, L500.2500 ####[facility] [address] [place], [address] IG% 0.400 Normal 0.0-0.9 [facility] Comment on above: Result Comment: IG% - Immature Granulocytes (promyelocytes, myelocytes andmetamyelocytes) > 1% indicates that a LEFT SHIFT is Present. Performed By: #### L 100.0100, L500.2500 ####[facility] [address] [place], [address] Lymphocytes/100 WBC (Bld) 21.5 % Normal 19-41 [facility] Comment on above: Performed By: #### L 100.0100, L500.2500 ####[facility] [address] [place], [address] MCH (RBC) [Entitic mass] 30.3 pg Normal 27.0-32.0 [facility] Comment on above: Performed By: #### L 100.0100, L500.2500 ####[facility] [address] [place], [address] MCHC (RBC) [Mass/Vol] 31.0 g/dL Low 32-36 [facility] Comment on above: Performed By: #### L 100.0100, L500.2500 ####[facility] [address] [place], [address] MCV (RBC) [Entitic vol] 97.7 fL Normal 81-99 [facility] Comment on above: Performed By: #### L 100.0100, L500.2500 ####[facility] [address] [place], [address] Monocytes/100 WBC (Bld) 10.2 % High 0-10 [facility] Comment on above: Performed By: #### L 100.0100, L500.2500 ####[facility] [address] [place], [address] Neutrophils/100 WBC (Bld) 60.9 % Normal 47-70 [facility] Comment on above: Performed By: #### L 100.0100, L500.2500 ####[facility] [address] [place], [address] Nucleated RBC (Bld) [#/Vol] 0 10*3/uL Normal 0-5 [facility] Comment on above: Performed By: #### L 100.0100, L500.2500 ####[facility] [address] [place], [address] Platelet mean volume (Bld) [Entitic vol] 9.5 fL Normal 6.2-12.0 [facility] Comment on above: Performed By: #### L 100.0100, L500.2500 ####[facility] [address] [place], [address] Platelets (Bld) [#/Vol] 227 10*3/uL Normal 150-450 [facility] Comment on above: Performed By: #### L 100.0100, L500.2500 ####[facility] [address] [place], [address] RBC (Bld) [#/Vol] 3.04 10*6/uL Low 4.2-5.4 [facility] Comment on above: Performed By: #### L 100.0100, L500.2500 ####[facility] [address] [place], [address] RDW SD 44.8 fl High 35.1-43.9 [facility] Comment on above: Performed By: #### L 100.0100, L500.2500 ####[facility] [address] [place], [address] WBC (Bld) [#/Vol] 12.1 10*3/uL High 4.4-11.0 [facility] Comment on above: Performed By: #### L 100.0100, L500.2500 ####[facility] [address] [place], [address] Consultation - Nephrologyon 01-04-2025 Consultation - Nephrology Normal [facility] Influenza virus A and B and SARS-CoV-2 (COVID-19) and Respiratory syncytial virus RNAOrdered By: He Cat on 01-04-2025 SARS-CoV-2 (COVID-19) RNA MARISA+probe Ql (Unsp spec) [facility] M100.678on 01-04-2025 M100.678 Pending SARS-CoV-2 (COVID 19) Negative INFLUENZA A Negative INFLUENZA B Negative RSV PCR Negative Normal [facility] Comment on above: Performed By: #### M 100.678 ####[facility] [address] [place], [address] M8200.1000on 01-04-2025 M8200.1000 Normal Reference Ran ge = Negative GeneXpert Instrument, PCR method MRSA PCR MRSA NEGATIVE Normal [facility] Comment on above: Performed By: #### M 8200.1000 ####[facility] [address] [place], [address] Nasal methicillin resistant Staphylococcus aureus (MRSA) DNA detection by PCROrdered By: He Cat on 01-04-2025 MRSA DNA MARISA+probe Ql (Nose) [facility] No Panel InformationOrdered By: He Cat on 01-04-2025 Yes [facility] 10:46:25 [facility] pradeep [facility] 12 Lead EKGon 01-03-2025 12 Lead EKG Normal [facility] Basic Metabolic Profile (BMP )on 01-03-2025 BUN/CRE 9.0 RATIO Low 10-20 [facility] Comment on above: Performed By: #### L 500.2500, L100.0100 ####[facility] [address] [place], [address] Calcium [Mass/Vol] 9.2 mg/dL Normal 7.6-11.0 [facility] Comment on above: Performed By: #### L 500.2500, L100.0100 ####[facility] [address] [place], [address] Chloride [Moles/Vol] 95 mmol/L Low 98-108 [facility] Comment on above: Performed By: #### L 500.2500, L100.0100 ####[facility] [address] [place], [address] CO2 [Moles/Vol] 32.3 mmol/L High 21.0-32.0 [facility] Comment on above: Performed By: #### L 500.2500, L100.0100 ####[facility] [address] [place], [address] Creatinine [Mass/Vol] 4.48 mg/dL High 0.70-1.20 [facility] Comment on above: Performed By: #### L 500.2500, L100.0100 ####[facility] [address] [place], [address] ECRCL 11.50 ml/min Low 50-250 [facility] Comment on above: Performed By: #### L 500.2500, L100.0100 ####[facility] [address] [place], [address] GAP 5 Normal 5-15 [facility] Comment on above: Performed By: #### L 500.2500, L100.0100 ####[facility] [address] [place], [address] GFR/1.73 sq M.predicted among non-blacks MDRD (S/P/Bld) [Vol rate/Area] 10 mL/min/{1.73_m2} Low >60 [facility] Comment on above: Result Comment: mL/m in/1.73m2 CKD-EPI Creatinine Equation (2020) Performed By: #### L 500.2500, L100.0100 ####[facility] [address] [place], [address] Glucose [Mass/Vol] 158 mg/dL High 70-99 [facility] Comment on above: Performed By: #### L 500.2500, L100.0100 ####[facility] [address] [place], [address] Potassium [Moles/Vol] 5.8 mmol/L High 3.3-5.1 [facility] Comment on above: Result Comment: Hemo lysis present, Results??could be affected.?? Performed By: #### L 500.2500, L100.0100 ####[facility] [address] [place], [address] Sodium [Moles/Vol] 133 mmol/L Normal 133-145 [facility] Comment on above: Performed By: #### L 500.2500, L100.0100 ####[facility] [address] [place], [address] Urea nitrogen [Mass/Vol] 40 mg/dL High 4-19 [facility] Comment on above: Performed By: #### L 500.2500, L100.0100 ####[facility] [address] [place], [address] CBC W/Diff, Automatedon 03-0 3-2024 Absolute Lymph 1.39 X10 3/uL Normal 0.83-4.51 [facility] Comment on above: Performed By: #### L 500.2500, L100.0100 ####[facility] [address] [place], [address] Absolute Neut 6.3 X10 3/uL Normal 2.0-7.7 [facility] Comment on above: Performed By: #### L 500.2500, L100.0100 ####[facility] [address] [place], [address] Basophils/100 WBC (Bld) 0.6 % Normal 0-1 [facility] Comment on above: Performed By: #### L 500.2500, L100.0100 ####[facility] [address] [place], [address] Eosinophils/100 WBC (Bld) 7.0 % High 0-5 [facility] Comment on above: Performed By: #### L 500.2500, L100.0100 ####[facility] [address] [place], [address] Erythrocyte distribution width (RBC) [Ratio] 12.4 % Normal 11.6-14.6 [facility] Comment on above: Performed By: #### L 500.2500, L100.0100 ####[facility] [address] [place], [address] Hematocrit (Bld) [Volume fraction] 31.8 % Low 37-47 [facility] Comment on above: Performed By: #### L 500.2500, L100.0100 ####[facility] [address] [place], [address] Hemoglobin (Bld) [Mass/Vol] 10.1 g/dL Low 12.0-15.0 [facility] Comment on above: Performed By: #### L 500.2500, L100.0100 ####[facility] [address] [place], [address] IG% 0.400 Normal 0.0-0.9 [facility] Comment on above: Result Comment: IG% - Immature Granulocytes (promyelocytes, myelocytes andmetamyelocytes) > 1% indicates that a LEFT SHIFT is Present. Performed By: #### L 500.2500, L100.0100 ####[facility] [address] [place], [address] Lymphocytes/100 WBC (Bld) 15.0 % Low 19-41 [facility] Comment on above: Performed By: #### L 500.2500, L100.0100 ####[facility] [address] [place], [address] MCH (RBC) [Entitic mass] 30.4 pg Normal 27.0-32.0 [facility] Comment on above: Performed By: #### L 500.2500, L100.0100 ####[facility] [address] [place], [address] MCHC (RBC) [Mass/Vol] 31.8 g/dL Low 32-36 [facility] Comment on above: Performed By: #### L 500.2500, L100.0100 ####[facility] [address] [place], [address] MCV (RBC) [Entitic vol] 95.8 fL Normal 81-99 [facility] Comment on above: Performed By: #### L 500.2500, L100.0100 ####[facility] [address] [place], [address] Monocytes/100 WBC (Bld) 8.8 % Normal 0-10 [facility] Comment on above: Performed By: #### L 500.2500, L100.0100 ####[facility] [address] [place], [address] Neutrophils/100 WBC (Bld) 68.2 % Normal 47-70 [facility] Comment on above: Performed By: #### L 500.2500, L100.0100 ####[facility] [address] [place], [address] Nucleated RBC (Bld) [#/Vol] 0 10*3/uL Normal 0-5 [facility] Comment on above: Performed By: #### L 500.2500, L100.0100 ####[facility] [address] [place], [address] Platelet mean volume (Bld) [Entitic vol] 9.5 fL Normal 6.2-12.0 [facility] Comment on above: Performed By: #### L 500.2500, L100.0100 ####[facility] [address] [place], [address] Platelets (Bld) [#/Vol] 228 10*3/uL Normal 150-450 [facility] Comment on above: Performed By: #### L 500.2500, L100.0100 ####[facility] [address] [place], [address] RBC (Bld) [#/Vol] 3.32 10*6/uL Low 4.2-5.4 [facility] Comment on above: Performed By: #### L 500.2500, L100.0100 ####[facility] [address] [place], [address] RDW SD 43.1 fl Normal 35.1-43.9 [facility] Comment on above: Performed By: #### L 500.2500, L100.0100 ####[facility] [address] [place], [address] WBC (Bld) [#/Vol] 9.3 10*3/uL Normal 4.4-11.0 [facility] Comment on above: Performed By: #### L 500.2500, L100.0100 ####[facility] [address] [place], [address] Chest PA and Lateralon 01-03 Chest PA and Lateral Normal [facility] Emergency Department Summary on 01-03-2025 Emergency Department Summary Normal [facility] CNPNon 12-30-2024 CNPN Telephone (TXCTGL) SANDY DENG ([id number]) 1960 F Date Time Provider Department 12/30/24 KIDNEY TXP COORDINATORS TXCTGL During your visit today, we recorded the following information about you: [place] James 12/30/2024 11:06 AM Signed Called and spoke with the patient in regards to kidney transplant referral, she states she started the process with [facility], and would like to go through the process at that center, as one center is enough to go through testings, and appointments. Advised the patient if she changes her mind, provided her with our office phone number, referral ended, and she verbalized understanding. Montana Jacob Allergies As of Date: 12/30/2024 Noted Allergy Reaction environmental [Other] 03/23/2009 Date Reviewed: 04/02/2012 Reviewed by: Dominga Garza (Rn), RN - Fully Assessed Reason for Visit: Referral - Kidney Txp [[id number]] Prescriptions as of 12/30/2024 - promethazine (PHENERGAN) 25 mg ORAL tablet Take 1 tablet by mouth every 8 hours as needed (take when nauseated.). - estradiol 1 mg ORAL tablet Take 1 mg by mouth once daily. - lisinopril 2.5 mg ORAL tablet Take 2.5 mg by mouth once daily. - CALCIUM CARBONATE/VITAMIN D3 (CALCIUM + D ORAL) Take by mouth three times daily. - simvastatin (ZOCOR) 20 mg ORAL tablet Take 1 tablet by mouth daily at bedtime. - insulin lispro (HUMALOG) 100 unit/mL SUBCUTANEOUS injection Inject 6 Units subcutaneously three times daily before meals. INJECT 6 UNITS SUBCUTANEOUSLY BEFORE MEALS AND SLIDING SCALE. - dicyclomine (BENTYL) 10 mg ORAL capsule Take 1 capsule by mouth. Take one capsule three times a day, as needed. Suggested before lunch and dinner, and again before bed. - insulin glargine (LANTUS) 100 unit/mL SUBCUTANEOUS injection Inject subcutaneously. Taking 32 units at bedtime - ASPIRIN 81 MG TAB Take one(1) tablet daily. 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 Telephone (TXCTGL) SANDY DENG ([id number]) 1960 F Date Time Provider Department 12/29/24 [facility] During your visit today, we recorded the following information about you: Otilia Portillo Tech 12/29/2024 10:51 AM Signed I spoke with Lita at [facility] who confirmed the patients demographic information and confirmed that the phone number that we have on file for the patient is incorrect. The correct phone number is [phone]. Allergies As of Date: 12/29/2024 Noted Allergy Reaction environmental [Other] 03/23/2009 Date Reviewed: 04/02/2012 Reviewed by: Dominga Garza (Rn), RN - Fully Assessed Reason for Visit: Referral - Kidney Txp [[id number]] Prescriptions as of 12/29/2024 - promethazine (PHENERGAN) 25 mg ORAL tablet Take 1 tablet by mouth every 8 hours as needed (take when nauseated.). - estradiol 1 mg ORAL tablet Take 1 mg by mouth once daily. - lisinopril 2.5 mg ORAL tablet Take 2.5 mg by mouth once daily. - CALCIUM CARBONATE/VITAMIN D3 (CALCIUM + D ORAL) Take by mouth three times daily. - simvastatin (ZOCOR) 20 mg ORAL tablet Take 1 tablet by mouth daily at bedtime. - insulin lispro (HUMALOG) 100 unit/mL SUBCUTANEOUS injection Inject 6 Units subcutaneously three times daily before meals. INJECT 6 UNITS SUBCUTANEOUSLY BEFORE MEALS AND SLIDING SCALE. - dicyclomine (BENTYL) 10 mg ORAL capsule Take 1 capsule by mouth. Take one capsule three times a day, as needed. Suggested before lunch and dinner, and again before bed. - insulin glargine (LANTUS) 100 unit/mL SUBCUTANEOUS injection Inject subcutaneously. Taking 32 units at bedtime - ASPIRIN 81 MG TAB Take one(1) tablet daily. 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 [place], [place], [id number] FINGERSTICK GLU 166 mg/dL High 74-106 [facility] Comment on above: Result Comment: SHELLY GEMENT OF PATIENT CARE PER NURSING PROTOCOL Performed By: #### L 501.080 ####[facility] [address] [place], [address] FINGERSTICK GLU 135 mg/dL High 74-106 [facility] Comment on above: Result Comment: SHELLY GEMENT OF PATIENT CARE PER NURSING PROTOCOL Performed By: #### L 501.080 ####[facility] [address] [place], [address] Discharge Instructionon 12-05 Discharge Instruction Normal [facility] Glucose measurement at bedsi deOrdered By: Favian Sinclair on 12-28-2024 Glucose [Mass/Vol] 207 mg/dL High 74-106 [facility] Glucose measurement at bedside 207 mg/dL High 74-106 [facility] MR/POSTOP.ANEon 12-28-2024 MR/POSTOP.ANE Normal [facility] MR/XSZHFMKD2ow 12-28-2024 MR/POSTOPAN2 Normal [facility] Operative Reporton Operative Report Normal [facility] Basic Metabolic Profile (BMP )on 12-25-2024 BUN/CRE 6.9 RATIO Low 10-20 [facility] Comment on above: Performed By: #### L 500.2500, L100.0500 ####[facility] [address] [place], [address] CA,Total 9.0 mg/dL Normal 8.5-10.1 [facility] Comment on above: Performed By: #### L 500.2500, L100.0500 ####[facility] [address] [place], [address] Chloride [Moles/Vol] 96 mmol/L Low 98-107 [facility] Comment on above: Performed By: #### L 500.2500, L100.0500 ####[facility] [address] [place], [address] CO2 [Moles/Vol] 35.0 mmol/L High 21.0-32.0 [facility] Comment on above: Performed By: #### L 500.2500, L100.0500 ####[facility] [address] [place], [address] Creatinine [Mass/Vol] 3.19 mg/dL High 0.55-1.02 [facility] Comment on above: Result Comment: The validity of the calculated GFR GFRAA in patients over70 years has not been determined. Clinical correlation isessential. Performed By: #### L 500.2500, L100.0500 ####[facility] [address] [place], [address] EST GFR - AA 19 mL/min Low >60 [facility] Comment on above: Result Comment: Afri can Turkish GFR Calc Performed By: #### L 500.2500, L100.0500 ####[facility] [address] [place], [address] GAP 3 Low 5-15 [facility] Comment on above: Performed By: #### L 500.2500, L100.0500 ####[facility] [address] [place], [address] GFR/1.73 sq M.predicted among non-blacks MDRD (S/P/Bld) [Vol rate/Area] 16 mL/min/{1.73_m2} Low >60 [facility] Comment on above: Result Comment: Non- GFR Calc Performed By: #### L 500.2500, L100.0500 ####[facility] [address] [place], [address] Glucose [Mass/Vol] 212 mg/dL High 74-106 [facility] Comment on above: Result Comment: Gluc ose result greater than or equal to 200 mg/dLsuggests DIABETES MELLITUS per A.D.A. criteria. Performed By: #### L 500.2500, L100.0500 ####[facility] [address], [address] Potassium [Moles/Vol] 4.0 mmol/L Normal 3.5-5.1 [facility] Comment on above: Performed By: #### L 500.2500, L100.0500 ####[facility] [address], [address] Sodium [Moles/Vol] 134 mmol/L Low 136-145 [facility] Comment on above: Performed By: #### L 500.2500, L100.0500 ####[facility] [address] [place], [address] Urea nitrogen [Mass/Vol] 22 mg/dL High 7-18 [facility] Comment on above: Performed By: #### L 500.2500, L100.0500 ####[facility] [address] [place], [address] Blood urea nitrogen (BUN)/cr eatinine ratioOrdered By: Favian Sinclair on 12-25-2024 Blood urea nitrogen (BUN)/creatinine ratio 6.9 RATIO Low 10-20 [facility] CBC-Complete Blood Cnt No Di ffon 12-25-2024 Erythrocyte distribution width (RBC) [Ratio] 12.4 % Normal 11.6-14.6 [facility] Comment on above: Performed By: #### L 500.2500, L100.0500 ####[facility] [address] [place], [address] Hematocrit (Bld) [Volume fraction] 33.1 % Low 37-47 [facility] Comment on above: Performed By: #### L 500.2500, L100.0500 ####[facility] [address] [place], [address] Hemoglobin (Bld) [Mass/Vol] 10.6 g/dL Low 12.0-15.0 [facility] Comment on above: Performed By: #### L 500.2500, L100.0500 ####[facility] [address] [place], [address] MCH (RBC) [Entitic mass] 30.1 pg Normal 27.0-32.0 [facility] Comment on above: Performed By: #### L 500.2500, L100.0500 ####[facility] [address] [place], [address] MCHC (RBC) [Mass/Vol] 32.0 g/dL Normal 32-36 [facility] Comment on above: Performed By: #### L 500.2500, L100.0500 ####[facility] [address] [place], [address] MCV (RBC) [Entitic vol] 94.0 fL Normal 81-99 [facility] Comment on above: Performed By: #### L 500.2500, L100.0500 ####[facility] [address] [place], [address] Platelet mean volume (Bld) [Entitic vol] 9.4 fL Normal 6.2-12.0 [facility] Comment on above: Performed By: #### L 500.2500, L100.0500 ####[facility] [address] [place], [address] Platelets (Bld) [#/Vol] 220 10*3/uL Normal 150-450 [facility] Comment on above: Performed By: #### L 500.2500, L100.0500 ####[facility] [address] [place], [address] RBC (Bld) [#/Vol] 3.52 10*6/uL Low 4.2-5.4 [facility] Comment on above: Performed By: #### L 500.2500, L100.0500 ####[facility] [address] [place], [address] RDW SD 42.8 fl Normal 35.1-43.9 [facility] Comment on above: Performed By: #### L 500.2500, L100.0500 ####[facility] [address] [place], [address] WBC (Bld) [#/Vol] 7.7 10*3/uL Normal 4.4-11.0 [facility] Comment on above: Performed By: #### L 500.2500, L100.0500 ####[facility] [address] [place], [address] Calcium [Mass/Vol]Ordered By : Favian Sinclair on 12-25-2024 Serum or plasma calcium measurement (mass/volume) 9.0 mg/dL 8.5-10.1 [facility] Carbon dioxide measurementOr dered By: Favian Sinclair on 12-25-2024 CO2 [Moles/Vol] 35.0 mmol/L High 21.0-32.0 [facility] Carbon dioxide measurement 35.0 mmol/L High 21.0-32.0 [facility] Chloride measurementOrdered By: Favian Sinclair on 12-25-2024 Chloride [Moles/Vol] 96 mmol/L Low 98-107 [facility] Chloride measurement 96 mmol/L Low 98-107 [facility] Creatinine [Mass/Vol]Ordered By: Favian Sinclair on 12-25-2024 Serum or plasma creatinine measurement (mass/volume) 3.19 mg/dL High 0.55-1.02 [facility] Erythrocyte distribution wid th (RBC) [Entitic vol]Ordered By: Favian Sinclair on 12-25-2024 Erythrocyte distribution width standard deviation 42.8 fl 35.1-43.9 [facility] Erythrocyte distribution wid th (RBC) [Ratio]Ordered By: Favian Sinclair on 12-25-2024 Erythrocyte distribution width ratio 12.4 % 11.6-14.6 [facility] Erythrocyte distribution wid th ratioOrdered By: Favian Sinclair on 12-25-2024 Erythrocyte distribution width (RBC) [Ratio] 12.4 % 11.6-14.6 [facility] Erythrocyte distribution wid th standard deviationOrdered By: Favian Sinclair on 12-25-2024 Erythrocyte distribution width (RBC) [Ratio] 42.8 fl 35.1-43.9 [facility] Estimated glomerular filtrat ion rate (GFR) AmericanOrdered By: Favian Sinclair on 12-25-2024 Estimated glomerular filtration rate (GFR) 19 mL/min Low >60 [facility] Glomerular filtration rate ( GFR) estimationOrdered By: Favian Sinclair on 12-25-2024 GFR/1.73 sq M.predicted among non-blacks MDRD (S/P/Bld) [Vol rate/Area] 16 mL/min/{1.73_m2} Low >60 [facility] Glomerular filtration rate (GFR) estimation 16 mL/min Low >60 [facility] Glucose measurementOrdered B y: Favian Sinclair on 12-25-2024 Glucose [Mass/Vol] 212 mg/dL High 74-106 [facility] Glucose measurement 212 mg/dL High 74-106 [facility] Hematocrit Auto (Bld) [Volum e fraction]Ordered By: Favian Sinclair on 12-25-2024 Hematocrit (Bld) [Volume fraction] 33.1 % Low 37-47 [facility] Automated blood hematocrit (percentage) 33.1 % Low 37-47 [facility] Hemoglobin measurementOrdere d By: Favian Sinclair on 12-25-2024 Hemoglobin (Bld) [Mass/Vol] 10.6 g/dL Low 12.0-15.0 [facility] Hemoglobin measurement 10.6 g/dL Low 12.0-15.0 [facility] MCV (RBC) [Entitic vol]Order ed By: Favian Sinclair on 12-25-2024 MCV (mean corpuscular volume) determination 94.0 fL 81-99 [facility] MCV (mean corpuscular volume ) determinationOrdered By: Favian Sinclair on 12-25-2024 MCV (RBC) [Entitic vol] 94.0 fL 81-99 [facility] Mean corpuscular hemoglobin (MCH) determinationOrdered By: Favian Sinclair on 12-25-2024 MCH (RBC) [Entitic mass] 30.1 pg 27.0-32.0 [facility] Mean corpuscular hemoglobin (MCH) determination 30.1 pg 27.0-32.0 [facility] Mean corpuscular hemoglobin concentration (MCHC) determinationOrdered By: Favian Sinclair on 12-25-2024 Mean corpuscular hemoglobin concentration (MCHC) determination 32.0 g/dL 32-36 [facility] Mean platelet volume determi nationOrdered By: Favian Sinclair on 12-25-2024 Mean platelet volume determination 9.4 fl 6.2-12.0 [facility] Platelet countOrdered By: Shreyas Sinclair on 12-25-2024 Platelets (Bld) [#/Vol] 220 10*3/uL 150-450 [facility] Platelet count 220 K/mm3 150-450 [facility] Potassium measurementOrdered By: Favian Sinclair on 12-25-2024 Potassium [Moles/Vol] 4.0 mmol/L 3.5-5.1 [facility] Potassium measurement 4.0 mmol/L 3.5-5.1 [facility] RBC Auto (Bld) [#/Vol]Ordere d By: Favian Sinclair on 12-25-2024 RBC (Bld) [#/Vol] 3.52 10*6/uL Low 4.2-5.4 [facility] Automated blood erythrocyte count 3.52 M/mm3 Low 4.2-5.4 [facility] Serum anion gap measurementO rdered By: Favian Sinclair 12-25-2024 Serum anion gap measurement 3 Low 5-15 [facility] Serum or plasma calcium lesly urement (mass/volume)Ordered By: Favian Sinclair on 12-25-2024 Calcium [Mass/Vol] 9.0 mg/dL 8.5-10.1 [facility] Serum or plasma creatinine m easurement (mass/volume)Ordered By: Favian Sinclair 12-25-2024 Creatinine [Mass/Vol] 3.19 mg/dL High 0.55-1.02 [facility] Serum or plasma urea nitroge n measurement (mass/volume)Ordered By: Favian Sinclair 12-25-2024 Urea nitrogen [Mass/Vol] 22 mg/dL High 7-18 [facility] Sodium levelOrdered By: Favian Sinclair on 12-25-2024 Sodium [Moles/Vol] 134 mmol/L Low 136-145 [facility] Sodium level 134 mmol/L Low 136-145 [facility] Urea nitrogen [Mass/Vol]Orde red By: Favian Sinclair on 12-25-2024 Serum or plasma urea nitrogen measurement (mass/volume) 22 mg/dL High 7-18 [facility] White blood cell (WBC) count Ordered By: Favian Sinclair on 12-25-2024 WBC (Bld) [#/Vol] 7.7 10*3/uL 4.4-11.0 [facility] White blood cell (WBC) count 7.7 K/mm3 4.4-11.0 [facility] CNPNon 12-24-2024 CNPN Telephone (TXCTGL) SANDY DENG ([id number]) 1960 F Date Time Provider Department 12/24/24 [facility] During your visit today, we recorded the following information about you: [place] James 12/24/2024 1:29 PM Signed Called Sandy Deng without success regarding referral. Voicemail message was left for patient to call our office. [place] James Allergies As of Date: 12/24/2024 Noted Allergy Reaction environmental [Other] 03/23/2009 Date Reviewed: 04/02/2012 Reviewed by: Dominga Garza (Moody), RN - Fully Assessed Reason for Visit: Referral - Kidney Txp [[id number]] Prescriptions as of 12/24/2024 - promethazine (PHENERGAN) 25 mg ORAL tablet Take 1 tablet by mouth every 8 hours as needed (take when nauseated.). - estradiol 1 mg ORAL tablet Take 1 mg by mouth once daily. - lisinopril 2.5 mg ORAL tablet Take 2.5 mg by mouth once daily. - CALCIUM CARBONATE/VITAMIN D3 (CALCIUM + D ORAL) Take by mouth three times daily. - simvastatin (ZOCOR) 20 mg ORAL tablet Take 1 tablet by mouth daily at bedtime. - insulin lispro (HUMALOG) 100 unit/mL SUBCUTANEOUS injection Inject 6 Units subcutaneously three times daily before meals. INJECT 6 UNITS SUBCUTANEOUSLY BEFORE MEALS AND SLIDING SCALE. - dicyclomine (BENTYL) 10 mg ORAL capsule Take 1 capsule by mouth. Take one capsule three times a day, as needed. Suggested before lunch and dinner, and again before bed. - insulin glargine (LANTUS) 100 unit/mL SUBCUTANEOUS injection Inject subcutaneously. Taking 32 units at bedtime - ASPIRIN 81 MG TAB Take one(1) tablet daily. 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] Encounter Status:Closed by [place] JAMES on 12/24/24 Normal [facility] MR/PAT.ANEon 12-20-2024 MR/PAT.ANE [facility] Echo Completeon 12-17-2024 Echo Complete [facility] Cardiology Visit Reporton Cardiology Visit Report Normal [facility] MR/PAT.ANEon 12-15-2024 MR/PAT.ANE [facility] MR/PAT.ANEon 12-14-2024 MR/PAT.ANE [facility] MR/BMS.BVSon 12-02-2024 MR/BMS.BVS Normal [facility] 12 Lead EKGon 11-20-2024 12 Lead EKG Normal [facility] 12 Lead EKG [facility] ALP [Catalytic activity/Vol] Ordered By: Alex Kaur on 11-20-2024 Serum or plasma alkaline phosphatase measurement 71 U/L 45-117 [facility] ALT [Catalytic activity/Vol] Ordered By: Alex Kaur on 11-20-2024 Serum or plasma alanine aminotransferase (ALT) measurement 17 U/L 13-56 [facility] Absolute neutrophil countOrd ered By: Alex Kaur on 11-20-2024 Absolute neutrophil count 4.4 X10^3/uL 2.0-7.7 [facility] Albumin [Mass/Vol]Ordered By : Alex Kaur on 11-20-2024 Serum or plasma albumin measurement (mass/volume) 2.9 g/dL Low 3.2-5.0 [facility] Albumin to globulin ratioOrd ered By: Alex Kaur on 11-20-2024 Albumin to globulin ratio 0.9 RATIO 0.9-2.4 [facility] Basophil percentageOrdered B y: Alex Kaur on 11-20-2024 Basophil percentage 0.6 % 0-1 [facility] Bilirubin, totalOrdered By: Alex Kaur on 11-20-2024 Bilirubin, total 0.30 mg/dL 0.20-1.00 [facility] Blood urea nitrogen (BUN)/cr eatinine ratioOrdered By: Alex Kaur on 11-20-2024 Blood urea nitrogen (BUN)/creatinine ratio 8.1 RATIO Low 10-20 [facility] CBC W/Diff, Automatedon 11-03 Absolute Lymph 1.88 X10 3/uL Normal 0.83-4.51 [facility] Comment on above: Performed By: #### L 500.4050, L100.0100 ####[facility] [address] [place], [address] Absolute Neut 4.4 X10 3/uL Normal 2.0-7.7 [facility] Comment on above: Performed By: #### L 500.4050, L100.0100 ####[facility] [address] [place], [address] Basophils/100 WBC (Bld) 0.6 % Normal 0-1 [facility] Comment on above: Performed By: #### L 500.4050, L100.0100 ####[facility] [address] [place], [address] Eosinophils/100 WBC (Bld) 7.6 % High 0-5 [facility] Comment on above: Performed By: #### L 500.4050, L100.0100 ####[facility] [address] [place], [address] Erythrocyte distribution width (RBC) [Ratio] 12.6 % Normal 11.6-14.6 [facility] Comment on above: Performed By: #### L 500.4050, L100.0100 ####[facility] [address] [place], [address] Hematocrit (Bld) [Volume fraction] 35.8 % Low 37-47 [facility] Comment on above: Performed By: #### L 500.4050, L100.0100 ####[facility] [address] [place], [address] Hemoglobin (Bld) [Mass/Vol] 11.5 g/dL Low 12.0-15.0 [facility] Comment on above: Performed By: #### L 500.4050, L100.0100 ####[facility] [address] [place], [address] IG% 0.500 Normal 0.0-0.9 [facility] Comment on above: Result Comment: IG% - Immature Granulocytes (promyelocytes, myelocytes andmetamyelocytes) > 1% indicates that a LEFT SHIFT is Present. Performed By: #### L 500.4050, L100.0100 ####[facility] [address] [place], [address] Lymphocytes/100 WBC (Bld) 24.4 % Normal 19-41 [facility] Comment on above: Performed By: #### L 500.4050, L100.0100 ####[facility] [address] [place], [address] MCH (RBC) [Entitic mass] 30.4 pg Normal 27.0-32.0 [facility] Comment on above: Performed By: #### L 500.4050, L100.0100 ####[facility] [address] [place], [address] MCHC (RBC) [Mass/Vol] 32.1 g/dL Normal 32-36 [facility] Comment on above: Performed By: #### L 500.4050, L100.0100 ####[facility] [address] [place], [address] MCV (RBC) [Entitic vol] 94.7 fL Normal 81-99 [facility] Comment on above: Performed By: #### L 500.4050, L100.0100 ####[facility] [address] [place], [address] Monocytes/100 WBC (Bld) 9.7 % Normal 0-10 [facility] Comment on above: Performed By: #### L 500.4050, L100.0100 ####[facility] [address] [place], [address] Neutrophils/100 WBC (Bld) 57.2 % Normal 47-70 [facility] Comment on above: Performed By: #### L 500.4050, L100.0100 ####[facility] [address] [place], [address] Nucleated RBC (Bld) [#/Vol] 0 10*3/uL Normal 0-5 [facility] Comment on above: Performed By: #### L 500.4050, L100.0100 ####[facility] [address] [place], [address] Platelet mean volume (Bld) [Entitic vol] 9.1 fL Normal 6.2-12.0 [facility] Comment on above: Performed By: #### L 500.4050, L100.0100 ####[facility] [address] [place], [address] Platelets (Bld) [#/Vol] 193 10*3/uL Normal 150-450 [facility] Comment on above: Performed By: #### L 500.4050, L100.0100 ####[facility] [address] [place], [address] RBC (Bld) [#/Vol] 3.78 10*6/uL Low 4.2-5.4 [facility] Comment on above: Performed By: #### L 500.4050, L100.0100 ####[facility] [address] [place], [address] RDW SD 42.2 fl Normal 35.1-43.9 [facility] Comment on above: Performed By: #### L 500.4050, L100.0100 ####[facility] [address] [place], [address] WBC (Bld) [#/Vol] 7.7 10*3/uL Normal 4.4-11.0 [facility] Comment on above: Performed By: #### L 500.4050, L100.0100 ####[facility] [address] [place], [address] Calcium [Mass/Vol]Ordered By : Alex Kaur on 11-20-2024 Serum or plasma calcium measurement (mass/volume) 9.3 mg/dL 8.5-10.1 [facility] Carbon dioxide measurementOr dered By: Alex Kaur on 11-20-2024 Carbon dioxide measurement 33.0 mmol/L High 21.0-32.0 [facility] Chest 1 View (Portable)on Chest 1 View (Portable) Normal [facility] Chloride measurementOrdered By: Alex Kaur on 11-20-2024 Chloride measurement 102 mmol/L 98-107 [facility] Comprehensive Metabolic Prof ilon 11-20-2024 Albumin [Mass/Vol] 2.9 g/dL Low 3.2-5.0 [facility] Comment on above: Performed By: #### L 500.4050, L100.0100 ####[facility] [address] [place], [address] Albumin/Globulin [Mass ratio] 0.9 {ratio} Normal 0.9-2.4 [facility] Comment on above: Performed By: #### L 500.4050, L100.0100 ####[facility] [address] [place], [address] ALK P 71 U/L Normal 45-117 [facility] Comment on above: Performed By: #### L 500.4050, L100.0100 ####[facility] [address] [place], [address] ALT [Catalytic activity/Vol] 17 U/L Normal 13-56 [facility] Comment on above: Performed By: #### L 500.4050, L100.0100 ####[facility] [address] [place], [address] AST [Catalytic activity/Vol] 14 U/L Low 15-37 [facility] Comment on above: Performed By: #### L 500.4050, L100.0100 ####[facility] [address] [place], [address] Bilirubin [Mass/Vol] 0.30 mg/dL Normal 0.20-1.00 [facility] Comment on above: Result Comment: For patients on eltrombopag therapy, use of Dimension [place] TBIL is not recommended. Performed By: #### L 500.4050, L100.0100 ####[facility] [address] [place], [address] BUN/CRE 8.1 RATIO Low 10-20 [facility] Comment on above: Performed By: #### L 500.4050, L100.0100 ####[facility] [address] [place], [address] CA,Total 9.3 mg/dL Normal 8.5-10.1 [facility] Comment on above: Performed By: #### L 500.4050, L100.0100 ####[facility] [address] [place], [address] Chloride [Moles/Vol] 102 mmol/L Normal 98-107 [facility] Comment on above: Performed By: #### L 500.4050, L100.0100 ####[facility] [address] [place], [address] CO2 [Moles/Vol] 33.0 mmol/L High 21.0-32.0 [facility] Comment on above: Performed By: #### L 500.4050, L100.0100 ####[facility] [address] [place], [address] Creatinine [Mass/Vol] 2.85 mg/dL High 0.55-1.02 [facility] Comment on above: Result Comment: The validity of the calculated GFR GFRAA in patients over70 years has not been determined. Clinical correlation isessential. Performed By: #### L 500.4050, L100.0100 ####[facility] [address] [place], [address] ECRCL 15.85 ml/min Normal [facility] Comment on above: Performed By: #### L 500.4050, L100.0100 ####[facility] [address] [place], [address] EST GFR - AA 21 mL/min Low >60 [facility] Comment on above: Result Comment: Afri can Turkish GFR Calc Performed By: #### L 500.4050, L100.0100 ####[facility] [address] [place], [address] GAP 2 Low 5-15 [facility] Comment on above: Performed By: #### L 500.4050, L100.0100 ####[facility] [address] [place], [address] GFR/1.73 sq M.predicted among non-blacks MDRD (S/P/Bld) [Vol rate/Area] 18 mL/min/{1.73_m2} Low >60 [facility] Comment on above: Result Comment: Non- GFR Calc Performed By: #### L 500.4050, L100.0100 ####[facility] [address] [place], [address] Globulin (S) [Mass/Vol] 3.4 g/dL Normal 2.2-4.2 [facility] Comment on above: Performed By: #### L 500.4050, L100.0100 ####[facility] [address] [place], [address] Glucose [Mass/Vol] 105 mg/dL Normal 74-106 [facility] Comment on above: Result Comment: Fast ing Glucose result from 100 to 125 mg/dLsuggests IMPAIRED HOMEOSTASIS per A.D.A. criteria. Performed By: #### L 500.4050, L100.0100 ####[facility] [address] [place], [address] Potassium [Moles/Vol] 4.4 mmol/L Normal 3.5-5.1 [facility] Comment on above: Performed By: #### L 500.4050, L100.0100 ####[facility] [address] [place], [address] Sodium [Moles/Vol] 137 mmol/L Normal 136-145 [facility] Comment on above: Performed By: #### L 500.4050, L100.0100 ####[facility] [address] [place], [address] T PROT 6.3 g/dL Low 6.4-8.2 [facility] Comment on above: Performed By: #### L 500.4050, L100.0100 ####[facility] [address] [place], [address] Urea nitrogen [Mass/Vol] 23 mg/dL High 7-18 [facility] Comment on above: Performed By: #### L 500.4050, L100.0100 ####[facility] [address] [place], [address] Creatinine [Mass/Vol]Ordered By: Alex Kaur on 11-20-2024 Serum or plasma creatinine measurement (mass/volume) 2.85 mg/dL High 0.55-1.02 [facility] Emergency Department Summary on 11-20-2024 Emergency Department Summary Normal [facility] Eosinophil percentageOrdered By: Alex Kaur on 11-20-2024 Eosinophil percentage 7.6 % High 0-5 [facility] Erythrocyte distribution wid th (RBC) [Entitic vol]Ordered By: Alex Kaur on 11-20-2024 Erythrocyte distribution width standard deviation 42.2 fl 35.1-43.9 [facility] Erythrocyte distribution wid th (RBC) [Ratio]Ordered By: Alex Kaur on 11-20-2024 Erythrocyte distribution width ratio 12.6 % 11.6-14.6 [facility] Estimated glomerular filtrat ion rate (GFR) AmericanOrdered By: Alex Kaur on 11-20-2024 Estimated glomerular filtration rate (GFR) 21 mL/min Low >60 [facility] Estimation of creatinine abdulkadir aranceOrdered By: Alex Kaur on 11-20-2024 Estimation of creatinine clearance 15.85 ml/min [facility] Glomerular filtration rate ( GFR) estimationOrdered By: Alex Kaur on 11-20-2024 Glomerular filtration rate (GFR) estimation 18 mL/min Low >60 [facility] Glucose measurementOrdered B y: Alex Kaur on 11-20-2024 Glucose measurement 105 mg/dL 74-106 [facility] Hematocrit Auto (Bld) [Volum e fraction]Ordered By: Alex Kaur on 11-20-2024 Automated blood hematocrit (percentage) 35.8 % Low 37-47 [facility] Hemoglobin measurementOrdere d By: Alex Kaur on 11-20-2024 Hemoglobin measurement 11.5 g/dL Low 12.0-15.0 [facility] Immature granulocytes/100 WB C Auto (Bld)Ordered By: Alex Kaur on 11-20-2024 Automated immature granulocyte percentage 0.500 % 0.0-0.9 [facility] L501.4020on 11-20-2024 TROPONIN-I HS 108 pg/mL High 3.0-54.0 [facility] Comment on above: Order Comment: 'TROP ' Serial specimen #1, #2 or #3: 2 Result Comment: Plea se Note: New Test Units and Gender Specific Reference Ranges. For more information see Policy Stat Procedure [place] High Sensitivity Troponin (TNIH) and attachments. Performed By: #### L 501.4020 ####[facility] [address] [place], [place], [address] TROPONIN-I HS 113 pg/mL High 3.0-54.0 [facility] Comment on above: Order Comment: 'TROP ' Serial specimen #1, #2 or #3: 1 Result Comment: Plea se Note: New Test Units and Gender Specific Reference Ranges. For more information see Policy Stat Procedure [place] High Sensitivity Troponin (TNIH) and attachments. Performed By: #### L 501.4020 ####[facility] [address] [place], [place], [address] Lymphocytes Auto (Unsp spec) [#/Vol]Ordered By: Alex Kaur on 11-20-2024 Absolute lymphocyte count 1.88 X10^3/uL 0.83-4.51 [facility] Lymphocytes/100 WBC Auto (Un sp spec)Ordered By: Alex Kaur on 11-20-2024 Automated lymphocyte count as percentage of total leukocytes 24.4 % 19-41 [facility] MCV (RBC) [Entitic vol]Order ed By: Alex Kaur on 11-20-2024 MCV (mean corpuscular volume) determination 94.7 fL 81-99 [facility] Mean corpuscular hemoglobin (MCH) determinationOrdered By: Alex Kaur on 11-20-2024 Mean corpuscular hemoglobin (MCH) determination 30.4 pg 27.0-32.0 [facility] Mean corpuscular hemoglobin concentration (MCHC) determinationOrdered By: Alex Kaur on 11-20-2024 Mean corpuscular hemoglobin concentration (MCHC) determination 32.1 g/dL 32-36 [facility] Mean platelet volume determi nationOrdered By: Alex Kaur on 11-20-2024 Mean platelet volume determination 9.1 fl 6.2-12.0 [facility] Monocyte percentageOrdered B y: Alex Kaur on 11-20-2024 Monocyte percentage 9.7 % 0-10 [facility] Neutrophil percentageOrdered By: Alex Kaur on 11-20-2024 Neutrophil percentage 57.2 % 47-70 [facility] No Panel InformationOrdered By: Alex Kaur on 11-20-2024 14 U/L Low 15-37 [facility] Nucleated red blood cell per centageOrdered By: Alex Kaur on 11-20-2024 Nucleated red blood cell percentage 0 % 0-5 [facility] Platelet countOrdered By: Benton Kaur on 11-20-2024 Platelet count 193 K/mm3 150-450 [facility] Potassium measurementOrdered By: Alex Kaur on 11-20-2024 Potassium measurement 4.4 mmol/L 3.5-5.1 [facility] RBC Auto (Bld) [#/Vol]Ordere d By: Alex Kaur on 11-20-2024 Automated blood erythrocyte count 3.78 M/mm3 Low 4.2-5.4 [facility] Serum anion gap measurementO rdered By: Alex Kaur on 11-20-2024 Serum anion gap measurement 2 Low 5-15 [facility] Serum globulin measurementOr dered By: Alex Kaur on 11-20-2024 Serum globulin measurement 3.4 g/dL 2.2-4.2 [facility] Sodium levelOrdered By: Alex Kaur on 11-20-2024 Sodium level 137 mmol/L 136-145 [facility] Total proteinOrdered By: Brooke Kaur on 11-20-2024 Total protein 6.3 g/dL Low 6.4-8.2 [facility] Troponin IOrdered By: Alex vidales on 11-20-2024 Troponin I 108 pg/mL High 3.0-54.0 [facility] Urea nitrogen [Mass/Vol]Orde red By: Alex Kaur on 11-20-2024 Serum or plasma urea nitrogen measurement (mass/volume) 23 mg/dL High 05-20 [facility] White blood cell (WBC) count Ordered By: Alex Kaur on 11-20-2024 White blood cell (WBC) count 7.7 K/mm3 4.4-11.0 [facility] Basic Metabolic Profile (BMP )on 11-04-2024 BUN Normal 05-20 [facility] Comment on above: Order Comment: 1Y Result Comment: PT. DISCHARGED Performed By: #### L 500.2500, L100.0100 ####[facility] [address] [place], [address] BUN/CRE Normal 10-20 [facility] Comment on above: Order Comment: 1Y Result Comment: PT. DISCHARGED Performed By: #### L 500.2500, L100.0100 ####[facility] [address] [place], [address] CA,Total Normal 8.5-10.1 [facility] Comment on above: Order Comment: 1Y Result Comment: PT. DISCHARGED Performed By: #### L 500.2500, L100.0100 ####[facility] [address] [place], [address] CL Normal 98-107 [facility] Comment on above: Order Comment: 1Y Result Comment: PT. DISCHARGED Performed By: #### L 500.2500, L100.0100 ####[facility] [address] [place], [address] CO2 Normal 21.0-32.0 [facility] Comment on above: Order Comment: 1Y Result Comment: PT. DISCHARGED Performed By: #### L 500.2500, L100.0100 ####[facility] [address] [place], [address] CREAT,SERUM Normal 0.55-1.02 [facility] Comment on above: Order Comment: 1Y Result Comment: PT. DISCHARGED Performed By: #### L 500.2500, L100.0100 ####[facility] [address] [place], [address] EST GFR Normal >60 [facility] Comment on above: Order Comment: 1Y Result Comment: PT. DISCHARGED Performed By: #### L 500.2500, L100.0100 ####[facility] [address] [place], [address] EST GFR - AA Normal >60 [facility] Comment on above: Order Comment: 1Y Result Comment: PT. DISCHARGED Performed By: #### L 500.2500, L100.0100 ####[facility] [address] [place], [address] GAP Normal 5-15 [facility] Comment on above: Order Comment: 1Y Result Comment: PT. DISCHARGED Performed By: #### L 500.2500, L100.0100 ####[facility] [address] [place], [address] GLU Normal 74-106 [facility] Comment on above: Order Comment: 1Y Result Comment: PT. DISCHARGED Performed By: #### L 500.2500, L100.0100 ####[facility] [address] [place], [address] Potassium Normal 3.5-5.1 [facility] Comment on above: Order Comment: 1Y Result Comment: PT. DISCHARGED Performed By: #### L 500.2500, L100.0100 ####[facility] [address] [place], [address] Basic Metabolic Profile (BMP) Normal 136-145 [facility] Comment on above: Order Comment: 1Y Result Comment: PT. DISCHARGED Performed By: #### L 500.2500, L100.0100 ####[facility] [address] [place], [address] CBC W/Diff, Automatedon 01-0 Absolute Neut Normal 2.0-7.7 [facility] Comment on above: Result Comment: PT D ISCHARGED Performed By: #### L 500.2500, L100.0100 ####[facility] [address] [place], [address] HCT Normal 37-47 [facility] Comment on above: Result Comment: PT D ISCHARGED Performed By: #### L 500.2500, L100.0100 ####[facility] [address] [place], [address] HGB Normal 12.0-15.0 [facility] Comment on above: Result Comment: PT D ISCHARGED Performed By: #### L 500.2500, L100.0100 ####[facility] [address] [place], [address] MCH Normal 27.0-32.0 [facility] Comment on above: Result Comment: PT D ISCHARGED Performed By: #### L 500.2500, L100.0100 ####[facility] [address] [place], [address] MCHC Normal 32-36 [facility] Comment on above: Result Comment: PT D ISCHARGED Performed By: #### L 500.2500, L100.0100 ####[facility] [address] [place], [address] MCV Normal 81-99 [facility] Comment on above: Result Comment: PT D ISCHARGED Performed By: #### L 500.2500, L100.0100 ####[facility] [address] [place], [address] NEUT% Normal 47-70 [facility] [facility] Comment on above: Result Comment: PT D ISCHARGED Performed By: #### L 500.2500, L100.0100 ####[facility] [address] [place], [address] PLT Normal 150-450 [facility] Comment on above: Result Comment: PT D ISCHARGED Performed By: #### L 500.2500, L100.0100 ####[facility] [address] [place], [address] RBC Normal 4.2-5.4 [facility] Comment on above: Result Comment: PT D ISCHARGED Performed By: #### L 500.2500, L100.0100 ####[facility] [address] [place], [address] RDW CV Normal 11.6-14.6 [facility] Comment on above: Result Comment: PT D ISCHARGED Performed By: #### L 500.2500, L100.0100 ####[facility] [address] [place], [address] RDW SD Normal 35.1-43.9 [facility] Comment on above: Result Comment: PT D ISCHARGED Performed By: #### L 500.2500, L100.0100 ####[facility] [address] [place], [address] WBC Normal 4.4-11.0 [facility] Comment on above: Result Comment: PT D ISCHARGED Performed By: #### L 500.2500, L100.0100 ####[facility] [address] [place], [address] Pulmonary Visit Reporton Pulmonary Visit Report Normal [facility] Dialysis Vein Map PRE-OP ADEBAYO ATon 11-02-2024 Dialysis Vein Map PRE-OP BILAT Normal [facility] Chest without Contraston Chest without Contrast Normal [facility] Endocrinology Visit Reporton 10-07-2024 Endocrinology Visit Report Normal [facility] Progress Noteon 08-31-2024 Progress Note Patient seen by me a t [facility]. Complete documentation including history with assessment and plan were documented in [facility] EMR. This encounter is for billing only. Normal [facility] Progress Noteon 08-27-2024 Progress Note Patient seen by me a t [facility]. Complete documentation including history with assessment and plan were documented in [facility] EMR. This encounter is for billing only. Normal [facility] Progress Noteon 08-25-2024 Progress Note Patient seen by me a t [facility]. Complete documentation including history with assessment and plan were documented in [facility] EMR. This encounter is for billing only. Normal [facility] 30on 08-24-2024 30 [facility] [id number] 08-24-2024 [id number] [facility] [id number] [facility] [id number] [facility] TCC request. [facility] [id number] Auth obtained for SR H. SW messaged to set up transport, [employer] messaged to send orders and MAR. [facility] BASIC METABOLIC PANELon 10-2 Anion gap [Moles/Vol] 6 mmol/L Normal 3-13 [facility] Comment on above: Performed By: #### L AB113, LAB15, [id number] ####[employer] Architect: MARY SOTELO ([id number])[facility] ([address] Calcium [Mass/Vol] 7.3 mg/dL Low 8.4-10.4 [facility] Comment on above: Performed By: #### L AB113, LAB15, [id number] ####[employer] Architect: MARY SOTELO ([id number])[facility] ([facility])[address] [place] [address] Chloride [Moles/Vol] 100 mmol/L Normal 98-107 [facility] Comment on above: Performed By: #### L AB113, LAB15, [id number] ####[employer] Architect: MARY SOTELO ([id number])[facility] [place] [address] CO2 [Moles/Vol] 25 mmol/L Normal 22-30 [facility] Comment on above: Performed By: #### L AB113, LAB15, [id number] ####[employer] Architect: MARY SOTELO ([id number])[facility] ([facility] [place] [address] Creatinine [Mass/Vol] 2.15 mg/dL High 0.52-1.04 [facility] Comment on above: Performed By: #### L AB113, LAB15, [id number] ####[employer] Architect: MARY SOTELO ([id number])[facility] ([facility])[address] [place] [address] GLOMERULAR FILTRATION RATE ML/MIN/1.73 SQ M.PREDICTED 25.2 mL/min/1.73m*2 Low >60.0 [facility] Comment on above: Result Comment: Calc ulation based on the Chronic Kidney Disease Epidemiology Collaboration (CKD-EPI) equation refit without adjustment for race Performed By: #### L AB113, LAB15, [id number] ####[employer] Architect: MARY SOTELO ([id number])[facility] ([facility] [place] [address] Glucose [Mass/Vol] 282 mg/dL High 70-100 [facility] Comment on above: Performed By: #### L AB113, LAB15, [id number] ####[employer] Architect: MARY SOTELO ([id number])[facility])[address] [place] [address] Potassium [Moles/Vol] 3.9 mmol/L Normal 3.5-5.1 [facility] Comment on above: Performed By: #### L AB113, LAB15, [id number] ####[employer] Architect: MARY SOTELO ([id number])[facility] [place] [address] Sodium [Moles/Vol] 130 mmol/L Low 135-145 [facility] Comment on above: Performed By: #### L AB113, LAB15, [id number] ####[employer] Architect: MARY SOTELO ([id number])[facility] ([facility] [place] [address] Urea nitrogen [Mass/Vol] 20 mg/dL High 7-17 [facility] Comment on above: Performed By: #### L AB113, LAB15, [id number] ####[employer] Architect: MARY SOTELO ([id number])[facility] ([facility])[address] [place] [address] Basic metabolic 1998 panelon 08-24-2024 Anion gap [Moles/Vol] 6 mmol/L 3 - 13 mmol/L [facility] Calcium [Mass/Vol] 7.3 mg/dL Low 8.4 - 10. 4 mg/dL [facility] Chloride [Moles/Vol] 100 mmol/L 98 - 10 7 mmol/L [facility] CO2 [Moles/Vol] 25 mmol/L 22 - 30 mmol/L [facility] Creatinine [Mass/Vol] 2.15 mg/dL High 0.52 - 1.04 mg/dL [facility] GFR/1.73 sq M.predicted (S/P/Bld) [Vol rate/Area] 25.2 mL/min Low - PINF [facility] Glucose [Mass/Vol] 282 mg/dL High 70 - 100 mg/dL [facility] Interpretation and review of laboratory results Abnormal [facility] Potassium [Moles/Vol] 3.9 mmol/L 3.5 - 5.1 mmol/L [facility] Sodium [Moles/Vol] 130 mmol/L Low 135 - 145 mmol/L [facility] Urea nitrogen [Mass/Vol] 20 mg/dL High 7 - 17 mg/dL [facility] CBC W Auto Differential pane l (Bld)on 08-24-2024 Basophils (Bld) [#/Vol] 0 10*3/uL 0.0 - 0.2 10*3/uL [facility] Basophils/100 WBC (Bld) 0.5 % 0.0 - 2.0 % [facility] Eosinophils (Bld) [#/Vol] 0.4 10*3/uL 0.0 - 0.5 10*3/uL [facility] Eosinophils/100 WBC (Bld) 7.2 % High 0.0 - 6.0 % [facility] Erythrocyte distribution width (RBC) [Ratio] 16.3 % High 11.5 - 15.0 % [facility] Hematocrit (Bld) [Volume fraction] 25.5 % Low 35.0 - 47.0 % [facility] Hemoglobin (Bld) [Mass/Vol] 8.2 g/dL Low 11.7 - 16.0 g/dL [facility] Immature granulocytes (Bld) [#/Vol] 0 10*3/uL NINF - 0.1 10*3/uL [facility] Immature granulocytes/100 WBC (Bld) 0.3 % 0.0 - 2.0 % [facility] Interpretation and review of laboratory results Abnormal [facility] Lymphocytes (Bld) [#/Vol] 1.1 10*3/uL 1.0 - 4.3 10*3/uL [facility] Lymphocytes/100 WBC (Bld) 18.6 % 15.0 - 45.0 % [facility] MCH (RBC) [Entitic mass] 29.1 pg 26.0 - 34.0 pg [facility] MCHC (RBC) [Mass/Vol] 32.2 % 30.5 - 36.0 % [facility] MCV (RBC) [Entitic vol] 90.4 fL 77.0 - 99.0 fL [facility] Monocytes (Bld) [#/Vol] 0.4 10*3/uL 0.0 - 0.9 10*3/uL [facility] Monocytes/100 WBC (Bld) 7.6 % 5.0 - 13.0 % [facility] Neutrophils (Bld) [#/Vol] 3.8 10*3/uL 1.8 - 7.5 10*3/uL [facility] Neutrophils/100 WBC (Bld) 65.8 % 38.0 - 82.0 % [facility] Nucleated RBC/100 WBC (Bld) [Ratio] 0 % [facility] Platelet mean volume (Bld) [Entitic vol] 10.6 fL 9.0 - 12.7 fL [facility] Platelets (Bld) [#/Vol] 198 10*3/uL 140 - 440 10*3/uL [facility] RBC (Bld) [#/Vol] 2.82 10*6/uL Low 3.80 - 5.2 0 10*6/uL [facility] WBC (Bld) [#/Vol] 5.8 10*3/uL 3.6 - 10.7 10*3/uL [facility] CBC WITH AUTO DIFFERENTIALon 08-24-2024 Basophils (Bld) [#/Vol] 0.0 10*3/uL Normal 0.0-0.2 [facility] Comment on above: Performed By: #### L [id number] ####[employer]: MARY SOTELO ([id number])[facility])[address] [place] [address] Basophils/100 WBC (Bld) 0.5 % Normal 0.0-2.0 [facility] Comment on above: Performed By: #### L [id number] ####[employer] Architect: MARY SOTELO ([id number])[facility])[address] [place] [address] Eosinophils (Bld) [#/Vol] 0.4 10*3/uL Normal 0.0-0.5 [facility] Comment on above: Performed By: #### L [id number] ####[employer] Architect: MARY SOTELO ([id number])[facility])[address] [place] [address] Eosinophils/100 WBC (Bld) 7.2 % High 0.0-6.0 [facility] Comment on above: Performed By: #### L [id number] ####[employer] Architect: MARY SOTELO ([id number])[facility])[address] [place] [address] Erythrocyte distribution width (RBC) [Ratio] 16.3 % High 11.5-15.0 [facility] Comment on above: Performed By: #### L [id number] ####[employer] Architect: MARY SOTELO ([id number])[facility])[address] [place] [address] Hematocrit (Bld) [Volume fraction] 25.5 % Low 35.0-47.0 [facility] Comment on above: Performed By: #### L [id number] ####[employer] Architect: MARY SOTELO ([id number])[facility])[address] [place] [address] Hemoglobin (Bld) [Mass/Vol] 8.2 g/dL Low 11.7-16.0 [facility] Comment on above: Performed By: #### L [id number] ####[employer] Architect: MARY SOTELO ([id number])[facility])[address] [place] [address] IMMATURE GRANS % 0.3 % Normal 0.0-2.0 [facility] Comment on above: Performed By: #### L [id number] ####[employer] Architect: MARY SOTELO ([id number])[facility])[address] [place] [address] IMMATURE GRANS ABSOLUTE 0.0 10*3/uL Normal <0.1 [facility] Comment on above: Performed By: #### L [id number] ####[employer] Architect: MARY SOTELO ([id number])[facility])[address] [place] [address] Lymphocytes (Bld) [#/Vol] 1.1 10*3/uL Normal 1.0-4.3 [facility] Comment on above: Performed By: #### L [id number] ####[employer] Architect: MARY SOTELO ([id number])[facility])[address] [place] [address] Lymphocytes/100 WBC (Bld) 18.6 % Normal 15.0-45.0 [facility] Comment on above: Performed By: #### L [id number] ####[employer] Architect: MARY SOTELO ([id number])[facility])[address] [place] [address] MCH (RBC) [Entitic mass] 29.1 pg Normal 26.0-34.0 [facility] Comment on above: Performed By: #### L [id number] ####[employer] Architect: MARY SOTELO ([id number])[facility])[address] [place] [address] MCHC 32.2 % Normal 30.5-36.0 [facility] Comment on above: Performed By: #### L [id number] ####[employer] Architect: MARY SOTELO ([id number])[facility])[address] [place] [address] MCV (RBC) [Entitic vol] 90.4 fL Normal 77.0-99.0 [facility] Comment on above: Performed By: #### L [id number] ####[employer] Architect: MARY SOTELO ([id number])[facility])[address] [place] [address] Monocytes (Bld) [#/Vol] 0.4 10*3/uL Normal 0.0-0.9 [facility] Comment on above: Performed By: #### L [id number] ####[employer] Architect: MARY SOTELO ([id number])[facility])[address] [place] [address] Monocytes/100 WBC (Bld) 7.6 % Normal 5.0-13.0 [facility] Comment on above: Performed By: #### L [id number] ####[employer] Architect: MARY SOTELO ([id number])[facility])[address] [place] [address] NEUTROPHILS ABSOLUTE 3.8 10*3/uL Normal 1.8-7.5 [facility] Comment on above: Performed By: #### L [id number] ####[employer] Architect: MARY SOTELO ([id number])[facility])[address] [place] [address] Neutrophils/100 WBC (Bld) 65.8 % Normal 38.0-82.0 [facility] Comment on above: Performed By: #### L [id number] ####[employer] Architect: MARY [id number])[facility] ([facility])[address] [place] [address] NRBC 0.0 /100 WBCs Normal 0.0-2.0 [facility] Comment on above: Performed By: #### L [id number] ####[employer] Architect: MARY SOTELO ([id number])[facility] ([facility])[address] [place] [address] Platelet mean volume (Bld) [Entitic vol] 10.6 fL Normal 9.0-12.7 [facility] Comment on above: Performed By: #### L [id number] ####[employer] Architect: MARY SOTELO ([id number])[facility])[address] [place] [address] Platelets (Bld) [#/Vol] 198 10*3/uL Normal 140-440 [facility] Comment on above: Performed By: #### L [id number] ####[employer] Architect: MARY SOTELO ([id number])[facility] ([facility])[address] [place] [address] RBC (Bld) [#/Vol] 2.82 10*6/uL Low 3.80-5.20 [facility] Comment on above: Performed By: #### L [id number] ####[employer] Architect: MARY SOTELO ([id number])[facility])[address] [place] [address] WBC (Bld) [#/Vol] 5.8 10*3/uL Normal 3.6-10.7 [facility] Comment on above: Performed By: #### L [id number] ####[employer] Architect: MARY SOTELO ([id number])[facility])[address] [place] [address] Laboratory - Chemistry and C hemistry - challengeon 08-24-2024 Glucose [Mass/Vol] 293 mg/dL High 70 - 100 mg/dL [facility] Glucose [Mass/Vol] 219 mg/dL High 70 - 100 mg/dL [facility] Glucose [Mass/Vol] 277 mg/dL High 70 - 100 mg/dL [facility] Magnesium [Mass/Vol] 1.8 mg/dL 1.6 - 2 .3 mg/dL [facility] MAGNESIUMon 08-24-2024 Magnesium [Mass/Vol] 1.8 mg/dL Normal 1.6-2.3 [facility] Comment on above: Performed By: #### L AB113, LAB15, [id number] ####[employer] Architect: MARY SOTELO ([id number])[facility] ([facility])[address] [place] [address] Magnesium [Mass/Vol]on 08-24 Interpretation and review of laboratory results Normal [facility] No Panel Informationon 08-24 Interpretation and review of laboratory results Abnormal [facility] Interpretation and review of laboratory results Abnormal [facility] Interpretation and review of laboratory results Abnormal [facility] PHOSPHORUSon 08-24-2024 Phosphate [Mass/Vol] 1.8 mg/dL Low 2.5-4.5 [facility] Comment on above: Performed By: #### L AB113, LAB15, [id number] ####[employer] Architect: MARY SOTELO ([id number])[facility] ([facility])[address] [place] [address] [place] Phosphate [Moles/Vol]on 08-04 Interpretation and review of laboratory results Abnormal [facility] Phosphate [Mass/Vol] 1.8 mg/dL Low 2.5 - 4 .5 mg/dL [facility] Progress Noteon 08-24-2024 Progress Note Normal [facility] BASIC METABOLIC PANELon 08-04 Anion gap [Moles/Vol] 5 mmol/L Normal 3-13 [facility] Comment on above: Performed By: #### L AB15, [id number], [id number] ####[employer] Architect: MARY SOTELO ([id number])[facility] ([facility])[address] [place] [address] Calcium [Mass/Vol] 7.3 mg/dL Low 8.4-10.4 [facility] Comment on above: Performed By: #### L AB15, [id number], [id number] ####[employer] Architect: MARY SOTELO ([id number])[facility] [place] [address] [place] Chloride [Moles/Vol] 99 mmol/L Normal 98-107 [facility] Comment on above: Performed By: #### L AB15, [id number], [id number] ####[employer] Architect: MARY SOTELO ([id number])[facility] [place] [address] [place] CO2 [Moles/Vol] 27 mmol/L Normal 22-30 [facility] Comment on above: Performed By: #### L AB15, [id number], [id number] ####[employer] Architect: MARY SOTELO ([id number])[facility] ([facility])[address] [place] [address] Creatinine [Mass/Vol] 3.39 mg/dL High 0.52-1.04 [facility] Comment on above: Performed By: #### Dora AB15, [id number], [id number] ####[employer] Architect: MARY SOTELO ([id number])[facility] ([facility])[address] [place] [address] [place] GLOMERULAR FILTRATION RATE ML/MIN/1.73 SQ M.PREDICTED 14.6 mL/min/1.73m*2 Low >60.0 [facility] Comment on above: Result Comment: Calc ulation based on the Chronic Kidney Disease Epidemiology Collaboration (CKD-EPI) equation refit without adjustment for race Performed By: #### L AB15, [id number], [id number] ####[employer] Architect: MARY SOTELO ([id number])[facility] [place] [address] [place] Glucose [Mass/Vol] 299 mg/dL High 70-100 [facility] Comment on above: Performed By: #### L AB15, [id number], [id number] ####[employer] Architect: MARY SOTELO ([id number])[facility] ([facility])[address] [place] [address] [place] Potassium [Moles/Vol] 4.0 mmol/L Normal 3.5-5.1 [facility] Comment on above: Performed By: #### L AB15, [id number], [id number] ####[employer] Architect: MARY SOTELO ([id number])[facility] ([facility])[address] [place] [address] Sodium [Moles/Vol] 130 mmol/L Low 135-145 [facility] Comment on above: Performed By: #### L AB15, [id number], [id number] ####[employer] Architect: MRAY SOTELO ([id number])[facility] ([facility])[address] [place] [address] Urea nitrogen [Mass/Vol] 37 mg/dL High 7-17 [facility] Comment on above: Performed By: #### L AB15, [id number], [id number] ####[employer] Architect: MARY SOTELO ([id number])[facility] [place] [address] Bacteria identified Cx Nom ( U)Ordered By: Kalia Gifford on 08-23-2024 Interpretation and review of laboratory results Abnormal [facility] Basic metabolic 1998 panelon 08-23-2024 Anion gap [Moles/Vol] 5 mmol/L 3 - 13 mmol/L [facility] Calcium [Mass/Vol] 7.3 mg/dL Low 8.4 - 10. 4 mg/dL [facility] Chloride [Moles/Vol] 99 mmol/L 98 - 10 7 mmol/L [facility] CO2 [Moles/Vol] 27 mmol/L 22 - 30 mmol/L [facility] Creatinine [Mass/Vol] 3.39 mg/dL High 0.52 - 1.04 mg/dL [facility] GFR/1.73 sq M.predicted (S/P/Bld) [Vol rate/Area] 14.6 mL/min Low - PINF [facility] Glucose [Mass/Vol] 299 mg/dL High 70 - 100 mg/dL [facility] Interpretation and review of laboratory results Abnormal [facility] Potassium [Moles/Vol] 4 mmol/L 3.5 - 5.1 mmol/L [facility] Sodium [Moles/Vol] 130 mmol/L Low 135 - 145 mmol/L [facility] Urea nitrogen [Mass/Vol] 37 mg/dL High 7 - 17 mg/dL [facility] CARECOORDon 08-23-2024 CARECOORD Normal [facility] CBC W Auto Differential pane l (Bld)on 08-23-2024 Basophils (Bld) [#/Vol] 0 10*3/uL 0.0 - 0.2 10*3/uL [facility] Basophils/100 WBC (Bld) 0.2 % 0.0 - 2.0 % [facility] Eosinophils (Bld) [#/Vol] 0.1 10*3/uL 0.0 - 0.5 10*3/uL [facility] Eosinophils/100 WBC (Bld) 1.1 % 0.0 - 6.0 % [facility] Erythrocyte distribution width (RBC) [Ratio] 15.9 % High 11.5 - 15.0 % [facility] Hematocrit (Bld) [Volume fraction] 25.5 % Low 35.0 - 47.0 % [facility] Hemoglobin (Bld) [Mass/Vol] 8.2 g/dL Low 11.7 - 16.0 g/dL [facility] Immature granulocytes (Bld) [#/Vol] 0 10*3/uL NINF - 0.1 10*3/uL [facility] Immature granulocytes/100 WBC (Bld) 0.5 % 0.0 - 2.0 % [facility] Interpretation and review of laboratory results Abnormal [facility] Lymphocytes (Bld) [#/Vol] 0.6 10*3/uL Low 1.0 - 4.3 10*3/uL [facility] Lymphocytes/100 WBC (Bld) 14.6 % Low 15.0 - 45.0 % [facility] MCH (RBC) [Entitic mass] 28.9 pg 26.0 - 34.0 pg [facility] MCHC (RBC) [Mass/Vol] 32.2 % 30.5 - 36.0 % [facility] MCV (RBC) [Entitic vol] 89.8 fL 77.0 - 99.0 fL [facility] Monocytes (Bld) [#/Vol] 0.3 10*3/uL 0.0 - 0.9 10*3/uL [facility] Monocytes/100 WBC (Bld) 7.3 % 5.0 - 13.0 % [facility] Neutrophils (Bld) [#/Vol] 3.4 10*3/uL 1.8 - 7.5 10*3/uL [facility] Neutrophils/100 WBC (Bld) 76.3 % 38.0 - 82.0 % [facility] Nucleated RBC/100 WBC (Bld) [Ratio] 0 % [facility] Platelet mean volume (Bld) [Entitic vol] 10.4 fL 9.0 - 12.7 fL [facility] Platelets (Bld) [#/Vol] 167 10*3/uL 140 - 440 10*3/uL [facility] RBC (Bld) [#/Vol] 2.84 10*6/uL Low 3.80 - 5.2 0 10*6/uL [facility] WBC (Bld) [#/Vol] 4.4 10*3/uL 3.6 - 10.7 10*3/uL [facility] CBC WITH AUTO DIFFERENTIALon 08-23-2024 Basophils (Bld) [#/Vol] 0.0 10*3/uL Normal 0.0-0.2 [facility] Comment on above: Performed By: #### L [id number] ####[employer]: MARY SOTELO ([id number])[address] Basophils/100 WBC (Bld) 0.2 % Normal 0.0-2.0 [facility] Comment on above: Performed By: #### L [id number] ####[employer] Architect: MARY SOTELO ([id number])[facility])[address] [place] [address] [place] Eosinophils (Bld) [#/Vol] 0.1 10*3/uL Normal 0.0-0.5 [facility] Comment on above: Performed By: #### L [id number] ####[employer] Architect: MARY [id number])[facility])[address] [place] [address] [place] Eosinophils/100 WBC (Bld) 1.1 % Normal 0.0-6.0 [facility] Comment on above: Performed By: #### L [id number] ####[employer] Architect: MARY [id number])[facility])[address] [place] [address] Erythrocyte distribution width (RBC) [Ratio] 15.9 % High 11.5-15.0 [facility] Comment on above: Performed By: #### L [id number] ####[employer] Architect: MARY SOTELO ([id number])[facility])[address] [place] [address] Hematocrit (Bld) [Volume fraction] 25.5 % Low 35.0-47.0 [facility] Comment on above: Performed By: #### L [id number] ####[employer] Architect: MARY SOTELO ([id number])[facility])[address] [place] [address] Hemoglobin (Bld) [Mass/Vol] 8.2 g/dL Low 11.7-16.0 [facility] Comment on above: Performed By: #### L [id number] ####[employer] Architect: MARY SOTELO ([id number])[facility])[address] [place] [address] IMMATURE GRANS % 0.5 % Normal 0.0-2.0 [facility] Comment on above: Performed By: #### L [id number] ####[employer] Architect: MARY SOTELO ([id number])[facility])[address] [place] [address] IMMATURE GRANS ABSOLUTE 0.0 10*3/uL Normal <0.1 [facility] Comment on above: Performed By: #### L [id number] ####[employer] Architect: MARY SOTELO ([id number])[facility])[address] [place] [address] Lymphocytes (Bld) [#/Vol] 0.6 10*3/uL Low 1.0-4.3 [facility] Comment on above: Performed By: #### L [id number] ####[employer] Architect: MARY SOTELO ([id number])[facility])[address] [place] [address] [place] Lymphocytes/100 WBC (Bld) 14.6 % Low 15.0-45.0 [facility] Comment on above: Performed By: #### L [id number] ####[employer] Architect: MARY SOTELO ([id number])[facility])[address] [place] [address] MCH (RBC) [Entitic mass] 28.9 pg Normal 26.0-34.0 [facility] Comment on above: Performed By: #### L [id number] ####[employer] Architect: MARY SOTELO ([id number])[facility])[address] [place] [address] MCHC 32.2 % Normal 30.5-36.0 [facility] Comment on above: Performed By: #### L [id number] ####[employer] Architect: MARY SOTELO ([id number])[facility])[address] [place] [address] MCV (RBC) [Entitic vol] 89.8 fL Normal 77.0-99.0 [facility] Comment on above: Performed By: #### L [id number] ####[employer] Architect: MARY SOTELO ([id number])[facility])[address] [place] [address] Monocytes (Bld) [#/Vol] 0.3 10*3/uL Normal 0.0-0.9 [facility] Comment on above: Performed By: #### L [id number] ####[employer] Architect: MARY SOTELO ([id number])[facility])[address] [place] [address] Monocytes/100 WBC (Bld) 7.3 % Normal 5.0-13.0 [facility] Comment on above: Performed By: #### L [id number] ####[employer] Architect: MARY SOTELO ([id number])[facility])[address] [place] [address] NEUTROPHILS ABSOLUTE 3.4 10*3/uL Normal 1.8-7.5 [facility] Comment on above: Performed By: #### L [id number] ####Ob[employer]e [employer] Architect: MARY SOTELO ([id number])[facility])[address] [place] [address] Neutrophils/100 WBC (Bld) 76.3 % Normal 38.0-82.0 [facility] Comment on above: Performed By: #### L [id number] ####[employer] Architect: MARY SOTELO ([id number])[facility])[address] [place] [address] NRBC 0.0 /100 WBCs Normal 0.0-2.0 [facility] Comment on above: Performed By: #### L [id number] ####Ob[employer]e [employer] Architect: MARY SOTELO ([id number])[facility])[address] [place] [address] Platelet mean volume (Bld) [Entitic vol] 10.4 fL Normal 9.0-12.7 [facility] Comment on above: Performed By: #### L [id number] ####[employer] Architect: MARY SOTELO ([id number])[facility])[address] [place] [address] Platelets (Bld) [#/Vol] 167 10*3/uL Normal 140-440 [facility] Comment on above: Performed By: #### L [id number] ####[employer] Architect: MARY SOTELO ([id number])[facility])[address] [place] [address] RBC (Bld) [#/Vol] 2.84 10*6/uL Low 3.80-5.20 [facility] Comment on above: Performed By: #### L [id number] ####[employer] Architect: MARY SOTELO ([id number])[facility])[address] [place] [address] WBC (Bld) [#/Vol] 4.4 10*3/uL Normal 3.6-10.7 [facility] Comment on above: Performed By: #### L [id number] ####Ob[employer]e [employer] Architect: MARY SOTELO ([id number])[facility] [place] [address] [place] Consulton 08-23-2024 Consult Normal [facility] HBV surface Ab IA Qnon 08-23 [facility] HBV surface Ag IA Qlon 08-23 Interpretation and review of laboratory results Normal [facility] HEPATITIS B SURFACE ANTIBODY on 08-23-2024 HEPATITIS B VIRUS SURFACE AB <8.0 Normal [facility] Comment on above: Result Comment: ORDE R COMMENTS:Interpretation:<8.0 Non-Reactive8.0-11.9 Equivocal>= 12.0 Ab DetectedNote: If an equivocal result is interpreted, an antibody status is unable to be determined. Collect new specimen if clinically indicated. Performed By: #### L [id number], [id number] ####[employer] Architect: MARY SOTELO ([id number])[facility])[address] [place] [address] HEPATITIS B SURFACE ANTIGENo n 08-23-2024 HEPATITIS B VIRUS SURFACE AG Not detected Normal Not Detected [facility] Comment on above: Performed By: #### L [id number], [id number] ####Ob[employer] Architect: MARY SOTELO ([id number])[facility])[address] [place] [address] [place] IDNon 08-23-2024 IDN Normal [facility] IDN Normal [facility] Laboratory - Chemistry and C hemistry - challengeon 08-23-2024 Glucose [Mass/Vol] 126 mg/dL High 70 - 100 mg/dL [facility] Glucose [Mass/Vol] 166 mg/dL High 70 - 100 mg/dL [facility] Glucose [Mass/Vol] 129 mg/dL High 70 - 100 mg/dL [facility] Glucose [Mass/Vol] 287 mg/dL High 70 - 100 mg/dL [facility] Glucose [Mass/Vol] 304 mg/dL High 70 - 100 mg/dL [facility] Magnesium [Mass/Vol] 1.9 mg/dL 1.6 - 2 .3 mg/dL [facility] Laboratory - Microbiology an d Antimicrobial susceptibilityon 08-23-2024 HBV surface Ab IA Qn mIU/mL [facility] HBV surface Ag IA Ql Not detected Not Detected [facility] Laboratory - Microbiology an d Antimicrobial susceptibilityOrdered By: Kalia Gifford on 08-23-2024 Bacteria identified Cx Nom (U) Normal urogenital keven present [facility] Bacteria identified Cx Nom (U) 50,000-90,000 CFU/mL Abbi albicans Abnormal [facility] MAGNESIUMon 08-23-2024 Magnesium [Mass/Vol] 1.9 mg/dL Normal 1.6-2.3 [facility] Comment on above: Performed By: #### L AB15, [id number], [id number] ####[employer] Architect: MARY SOTELO ([id number])[facility])[address] [place] [address] No Panel Informationon 08-23 Interpretation and review of laboratory results Abnormal [facility] Interpretation and review of laboratory results Abnormal [facility] Interpretation and review of laboratory results Abnormal [facility] Interpretation and review of laboratory results Abnormal [facility] Interpretation and review of laboratory results Abnormal [facility] Interpretation and review of laboratory results Normal [facility] Nursing Noteon 08-23-2024 Nursing Note Normal [facility] PHOSPHORUSon 08-23-2024 Phosphate [Mass/Vol] 2.5 mg/dL Normal 2.5-4.5 [facility] Comment on above: Performed By: #### L AB15, [id number], [id number] ####[employer] Architect: MARY SOTELO ([id number])[facility])[address] [place] [address] Phosphate [Moles/Vol]on 08-04 Phosphate [Mass/Vol] 2.5 mg/dL 2.5 - 4 .5 mg/dL [facility] Progress Noteon 08-23-2024 Progress Note Normal [facility] Progress Note Normal [facility] Progress Note Normal [facility] Progress Note Normal [facility] US Kidneyon 08-23-2024 [facility] Radiology Study observation (narrative) [facility] US KidneyOrdered By: Daniel esquivel on 08-23-2024 [facility] Work Phone: US RENAL COMPLETEon 08-23-20 US RENAL COMPLETE Normal [facility] BASIC METABOLIC PANELon 08-04 Anion gap [Moles/Vol] 5 mmol/L Normal 3-13 [facility] Comment on above: Performed By: #### L AB103, LAB15, [id number] ####[employer] Architect: MARY SOTELO ([id number])[facility])[address] [place] [address] Calcium [Mass/Vol] 7.3 mg/dL Low 8.4-10.4 [facility] Comment on above: Performed By: #### Dora AB103, LAB15, [id number] ####[employer] Architect: MARY SOTELO ([id number])[facility])[address] [place] [address] Chloride [Moles/Vol] 97 mmol/L Low 98-107 [facility] Comment on above: Performed By: #### L AB103, LAB15, [id number] ####[employer] Architect: MARY SOTELO ([id number])[facility])[address] [place] [address] CO2 [Moles/Vol] 28 mmol/L Normal 22-30 [facility] Comment on above: Performed By: #### L AB103, LAB15, [id number] ####Ob[employer] Architect: MARY SOTELO ([id number])[facility])[address] [place] [address] Creatinine [Mass/Vol] 3.04 mg/dL High 0.52-1.04 [facility] Comment on above: Performed By: #### L AB103, LAB15, [id number] ####[employer] Architect: MARY SOTELO ([id number])[facility])[address] [place] [address] [place] GLOMERULAR FILTRATION RATE ML/MIN/1.73 SQ M.PREDICTED 16.6 mL/min/1.73m*2 Low >60.0 [facility] Comment on above: Result Comment: Calc ulation based on the Chronic Kidney Disease Epidemiology Collaboration (CKD-EPI) equation refit without adjustment for race Performed By: #### Dora SONG, LAB15, [id number] ####[employer] Architect: MARY SOTELO ([id number])[facility])[address] [place] [address] Glucose [Mass/Vol] 309 mg/dL High 70-100 [facility] Comment on above: Performed By: #### Dora SONG, LAB15, [id number] ####Ob[employer] Architect: MARY SOTELO ([id number])[facility])[address] [place] [address] Potassium [Moles/Vol] 3.4 mmol/L Low 3.5-5.1 [facility] Comment on above: Performed By: #### Dora SONG, LAB15, [id number] ####[employer] Architect: MARY SOTELO ([id number])[facility])[address] [place] [address] Sodium [Moles/Vol] 130 mmol/L Low 135-145 [facility] Comment on above: Performed By: #### Dora SONG, LAB15, [id number] ####[employer] Architect: MARY SOTELO ([id number])[facility])[address] [place] [address] Urea nitrogen [Mass/Vol] 28 mg/dL High 7-17 [facility] Comment on above: Performed By: #### Dora SONG, LAB15, [id number] ####[employer] Architect: MARY SOTELO ([id number])[facility])[address] [place] [address] Basic metabolic 1998 panelon 08-22-2024 Anion gap [Moles/Vol] 5 mmol/L 3 - 13 mmol/L [facility] Calcium [Mass/Vol] 7.3 mg/dL Low 8.4 - 10. 4 mg/dL [facility] Chloride [Moles/Vol] 97 mmol/L Low 98 - 10 7 mmol/L [facility] CO2 [Moles/Vol] 28 mmol/L 22 - 30 mmol/L [facility] Creatinine [Mass/Vol] 3.04 mg/dL High 0.52 - 1.04 mg/dL [facility] GFR/1.73 sq M.predicted (S/P/Bld) [Vol rate/Area] 16.6 mL/min Low - PINF [facility] Glucose [Mass/Vol] 309 mg/dL High 70 - 100 mg/dL [facility] Interpretation and review of laboratory results Abnormal [facility] Potassium [Moles/Vol] 3.4 mmol/L Low 3.5 - 5.1 mmol/L [facility] Sodium [Moles/Vol] 130 mmol/L Low 135 - 145 mmol/L [facility] Urea nitrogen [Mass/Vol] 28 mg/dL High 7 - 17 mg/dL [facility] CALCIUM, IONIZEDon CALCIUM IONIZED 3.90 mg/dL Low 4.30-5.20 [facility] Comment on above: Performed By: #### L [id number] ####Ob[employer]e [employer] Solution Architect: MARY SOTELO ([id number])[facility])[address] [place] [address] PH, IONIZED CALCIUM 7.42 Normal 7.31-7.46 [facility] Comment on above: Performed By: #### L AB54 ####[employer] Architect: MARY SOTELO ([id number])[address] CBC W Auto Differential pane l (Bld)on 08-22-2024 Basophils (Bld) [#/Vol] 0 10*3/uL 0.0 - 0.2 10*3/uL [facility] Basophils/100 WBC (Bld) 0.4 % 0.0 - 2.0 % [facility] Eosinophils (Bld) [#/Vol] 0.4 10*3/uL 0.0 - 0.5 10*3/uL [facility] Eosinophils/100 WBC (Bld) 7.7 % High 0.0 - 6.0 % [facility] Erythrocyte distribution width (RBC) [Ratio] 16.2 % High 11.5 - 15.0 % [facility] Hematocrit (Bld) [Volume fraction] 26.6 % Low 35.0 - 47.0 % [facility] Hemoglobin (Bld) [Mass/Vol] 8.6 g/dL Low 11.7 - 16.0 g/dL [facility] Immature granulocytes (Bld) [#/Vol] 0 10*3/uL NINF - 0.1 10*3/uL [facility] Immature granulocytes/100 WBC (Bld) 0.4 % 0.0 - 2.0 % [facility] Interpretation and review of laboratory results Abnormal [facility] Lymphocytes (Bld) [#/Vol] 0.9 10*3/uL Low 1.0 - 4.3 10*3/uL [facility] Lymphocytes/100 WBC (Bld) 18.2 % 15.0 - 45.0 % [facility] MCH (RBC) [Entitic mass] 29.8 pg 26.0 - 34.0 pg [facility] MCHC (RBC) [Mass/Vol] 32.3 % 30.5 - 36.0 % [facility] MCV (RBC) [Entitic vol] 92 fL 77.0 - 99.0 fL [facility] Monocytes (Bld) [#/Vol] 0.4 10*3/uL 0.0 - 0.9 10*3/uL [facility] Monocytes/100 WBC (Bld) 7.9 % 5.0 - 13.0 % [facility] Neutrophils (Bld) [#/Vol] 3.1 10*3/uL 1.8 - 7.5 10*3/uL [facility] Neutrophils/100 WBC (Bld) 65.4 % 38.0 - 82.0 % [facility] Nucleated RBC/100 WBC (Bld) [Ratio] 0 % [facility] Platelet mean volume (Bld) [Entitic vol] 10.1 fL 9.0 - 12.7 fL [facility] Platelets (Bld) [#/Vol] 161 10*3/uL 140 - 440 10*3/uL [facility] RBC (Bld) [#/Vol] 2.89 10*6/uL Low 3.80 - 5.2 0 10*6/uL [facility] WBC (Bld) [#/Vol] 4.8 10*3/uL 3.6 - 10.7 10*3/uL [facility] CBC WITH AUTO DIFFERENTIALon 08-22-2024 Basophils (Bld) [#/Vol] 0.0 10*3/uL Normal 0.0-0.2 [facility] Comment on above: Performed By: #### L [id number] ####[employer] Architect: MARY SOTELO ([id number])[facility])[address] [place] [address] Basophils/100 WBC (Bld) 0.4 % Normal 0.0-2.0 [facility] Comment on above: Performed By: #### L [id number] ####[employer] Architect: MARY SOTELO ([id number])[facility])[address] [place] [address] Eosinophils (Bld) [#/Vol] 0.4 10*3/uL Normal 0.0-0.5 [facility] Comment on above: Performed By: #### L [id number] ####[employer] Architect: MARY SOTELO ([id number])[facility])[address] [place] [address] Eosinophils/100 WBC (Bld) 7.7 % High 0.0-6.0 [facility] Comment on above: Performed By: #### L [id number] ####[employer] Architect: MARY SOTELO ([id number])[address] Erythrocyte distribution width (RBC) [Ratio] 16.2 % High 11.5-15.0 [facility] Comment on above: Performed By: #### L [id number] ####[employer] Architect: MARY SOTELO ([id number])[address] Hematocrit (Bld) [Volume fraction] 26.6 % Low 35.0-47.0 [facility] Comment on above: Performed By: #### L [id number] ####[employer] Architect: MARY SOTELO ([id number])[address] Hemoglobin (Bld) [Mass/Vol] 8.6 g/dL Low 11.7-16.0 [facility] Comment on above: Performed By: #### L [id number] ####Ob[employer] Architect: MARY SOTELO ([id number])[facility])[address] [place] [address] IMMATURE GRANS % 0.4 % Normal 0.0-2.0 [facility] Comment on above: Performed By: #### L [id number] ####Ob[employer] Architect: MARY SOTELO ([id number])[facility])[address] [place] [address] IMMATURE GRANS ABSOLUTE 0.0 10*3/uL Normal <0.1 [facility] Comment on above: Performed By: #### L [id number] ####[employer] Architect: MARY SOTELO ([id number])[address] Lymphocytes (Bld) [#/Vol] 0.9 10*3/uL Low 1.0-4.3 [facility] Comment on above: Performed By: #### L [id number] ####[employer] Architect: MARY SOTELO ([id number])[facility])[address] [place] [address] Lymphocytes/100 WBC (Bld) 18.2 % Normal 15.0-45.0 [facility] Comment on above: Performed By: #### L [id number] ####[employer] Architect: MARY SOTELO ([id number])[address] MCH (RBC) [Entitic mass] 29.8 pg Normal 26.0-34.0 [facility] Comment on above: Performed By: #### L [id number] ####[employer] Architect: MARY SOTELO ([id number])[address] MCHC 32.3 % Normal 30.5-36.0 [facility] Comment on above: Performed By: #### L [id number] ####Ob[employer] Architect: MARY SOTELO ([id number])[facility])[address] [place] [address] MCV (RBC) [Entitic vol] 92.0 fL Normal 77.0-99.0 [facility] Comment on above: Performed By: #### L [id number] ####[employer] Architect: MARY SOTELO ([id number])[facility])[address] [place] [address] Monocytes (Bld) [#/Vol] 0.4 10*3/uL Normal 0.0-0.9 [facility] Comment on above: Performed By: #### L [id number] ####[employer] Architect: MARY SOTELO ([id number])[facility])[address] [place] [address] Monocytes/100 WBC (Bld) 7.9 % Normal 5.0-13.0 [facility] Comment on above: Performed By: #### L [id number] ####[employer] Architect: MARY SOTELO ([id number])[facility])[address] [place] [address] NEUTROPHILS ABSOLUTE 3.1 10*3/uL Normal 1.8-7.5 [facility] Comment on above: Performed By: #### L [id number] ####Ob[employer] Architect: MARY SOTELO ([id number])[facility])[address] [place] [address] Neutrophils/100 WBC (Bld) 65.4 % Normal 38.0-82.0 [facility] Comment on above: Performed By: #### L [id number] ####Ob[employer] Architect: MARY SOTELO ([id number])[facility])[address] [place] [address] NRBC 0.0 /100 WBCs Normal 0.0-2.0 [facility] Comment on above: Performed By: #### L [id number] ####Ob[employer] Architect: MARY SOTELO ([id number])[facility])[address] [place] [address] Platelet mean volume (Bld) [Entitic vol] 10.1 fL Normal 9.0-12.7 [facility] Comment on above: Performed By: #### L [id number] ####[employer] Architect: MARY SOTELO ([id number])[facility])[address] [place] [address] Platelets (Bld) [#/Vol] 161 10*3/uL Normal 140-440 [facility] Comment on above: Performed By: #### L [id number] ####[employer] Architect: MARY SOTELO ([id number])[facility])[address] [place] [address] RBC (Bld) [#/Vol] 2.89 10*6/uL Low 3.80-5.20 [facility] Comment on above: Performed By: #### L [id number] ####[employer] Architect: MARY SOTELO ([id number])[facility])[address] [place] [address] WBC (Bld) [#/Vol] 4.8 10*3/uL Normal 3.6-10.7 [facility] Comment on above: Performed By: #### L [id number] ####[employer] Architect: MARY SOTELO ([id number])[facility])[address] [place] [address] Calcium.ionized [Moles/Vol]o n 08-22-2024 Calcium.ionized (Bld) [Moles/Vol] 3.9 mg/dL Low 4.30 - 5.20 mg/dL [facility] Interpretation and review of laboratory results Abnormal [facility] PH, IONIZED CALCIUM 7.42 7.31 - 7.46 [facility] IDNon 08-22-2024 IDN Normal [facility] Laboratory - Chemistry and C hemistry - challengeon 08-22-2024 Glucose [Mass/Vol] 257 mg/dL High 70 - 100 mg/dL [facility] Glucose [Mass/Vol] 255 mg/dL High 70 - 100 mg/dL [facility] Glucose [Mass/Vol] 287 mg/dL High 70 - 100 mg/dL [facility] Glucose [Mass/Vol] 310 mg/dL High 70 - 100 mg/dL [facility] Magnesium [Mass/Vol] 2 mg/dL 1.6 - 2 .3 mg/dL [facility] MAGNESIUMon 08-22-2024 Magnesium [Mass/Vol] 2.0 mg/dL Normal 1.6-2.3 [facility] Comment on above: Performed By: #### L AB103, LAB15, [id number] ####[employer] Architect: MARY SOTELO ([id number])[facility])[address] [place] [address] Magnesium [Mass/Vol]on 08-22 Interpretation and review of laboratory results Normal [facility] No Panel Informationon 08-22 Interpretation and review of laboratory results Abnormal [facility] Interpretation and review of laboratory results Abnormal [facility] Interpretation and review of laboratory results Abnormal [facility] Interpretation and review of laboratory results Abnormal [facility] PHOSPHORUSon 08-22-2024 Phosphate [Mass/Vol] 2.3 mg/dL Low 2.5-4.5 [facility] Comment on above: Performed By: #### L AB103, LAB15, [id number] ####[employer] Architect: MARY SOTELO ([id number])[facility])[address] [place] [address] [place] Phosphate [Moles/Vol]on 08-04 Interpretation and review of laboratory results Abnormal [facility] Phosphate [Mass/Vol] 2.3 mg/dL Low 2.5 - 4 .5 mg/dL [facility] Progress Noteon 08-22-2024 Progress Note Normal [facility] Progress Note Normal [facility] Progress Note Normal [facility] Progress Note Normal [facility] BASIC METABOLIC PANELon 08-03 Anion gap [Moles/Vol] 7 mmol/L Normal 3-13 [facility] Comment on above: Performed By: #### L AB113, LAB15, [id number] ####[employer] Architect: MARY SOTELO ([id number])[facility])[address] [place] [address] [place] Calcium [Mass/Vol] 7.8 mg/dL Low 8.4-10.4 [facility] Comment on above: Performed By: #### Dora AB113, LAB15, [id number] ####[employer] Architect: MARY SOTELO ([id number])[facility] [place] [address] Chloride [Moles/Vol] 99 mmol/L Normal 98-107 [facility] Comment on above: Performed By: #### Dora AB113, LAB15, [id number] ####[employer] Architect: MARY SOTELO ([id number])[facility] [place] [address] CO2 [Moles/Vol] 27 mmol/L Normal 22-30 [facility] Comment on above: Performed By: #### Dora AB113, LAB15, [id number] ####[employer] Architect: MARY SOTELO ([id number])[facility])[address] [place] [address] Creatinine [Mass/Vol] 4.52 mg/dL High 0.52-1.04 [facility] Comment on above: Performed By: #### Dora AB113, LAB15, [id number] ####[employer] Architect: MARY SOTELO ([id number])[facility])[address] [place] [address] [place] GLOMERULAR FILTRATION RATE ML/MIN/1.73 SQ M.PREDICTED 10.3 mL/min/1.73m*2 Low >60.0 [facility] Comment on above: Result Comment: Calc ulation based on the Chronic Kidney Disease Epidemiology Collaboration (CKD-EPI) equation refit without adjustment for race Performed By: #### L AB113, LAB15, [id number] ####[employer] Architect: MARY SOTELO ([id number])[facility] ([facility])[address] [place] [address] [place] Glucose [Mass/Vol] 73 mg/dL Normal 70-100 [facility] Comment on above: Performed By: #### L AB113, LAB15, [id number] ####[employer] Architect: MARY [id number])[facility] [place] [address] Potassium [Moles/Vol] 3.2 mmol/L Low 3.5-5.1 [facility] Comment on above: Performed By: #### L AB113, LAB15, [id number] ####[employer] Architect: MARY SOTELO ([id number])[facility])[address] [place] [address] Sodium [Moles/Vol] 133 mmol/L Low 135-145 [facility] Comment on above: Performed By: #### L AB113, LAB15, [id number] ####[employer] Architect: MARY SOTELO ([id number])[facility])[address] [place] [address] Urea nitrogen [Mass/Vol] 47 mg/dL High 7-17 [facility] Comment on above: Performed By: #### L AB113, LAB15, [id number] ####[employer] Architect: MARY SOTELO ([id number])[facility] ([facility])[address] [place] [address] BLOOD GAS ARTERIALon 024 Base excess Calc (Bld) [Moles/Vol] 3.2 mmol/L High -3.0-3.0 [facility] Comment on above: Performed By: #### L [id number] ####[employer] Architect: MARY SOTELO ([id number])[facility] ([facility])[address] [place] [address] CO2 [Moles/Vol] 30.8 mmol/L High 23.0-27.0 [facility] Comment on above: Performed By: #### L [id number] ####[employer] Architect: MARY SOTELO ([id number])[facility])[address] [place] [address] HCO3 (Bld) [Moles/Vol] 29.2 mmol/L High 21.0-25.0 [facility] Comment on above: Performed By: #### L [id number] ####[employer] Architect: MARY SOTELO ([id number])[facility] ([facility])[address] [place] [address] Hemoglobin (Bld) [Mass/Vol] 10.2 g/dL Normal Screen only [facility] Comment on above: Performed By: #### L [id number] ####[employer] Architect: MARY SOTELO ([id number])[facility])[address] [place] [address] OXYGEN SATURATION (%) IN ARTERIAL BLOOD 96.1 % Normal 95.0-100.0 [facility] Comment on above: Performed By: #### L [id number] ####[employer] Architect: MARY SOTELO ([id number])[facility])[address] [place] [address] PCO2 ARTERIAL 51.3 mm Hg High >35.0-<45.0 [facility] Comment on above: Performed By: #### L [id number] ####[employer] Architect: MARY SOTELO ([id number])[facility])[address] [place] [address] PH ARTERIAL 7.373 Normal 7.350-7.450 [facility] Comment on above: Performed By: #### L [id number] ####[employer] Architect: MARY SOTELO ([id number])[facility])[address] [place] [address] PO2 ARTERIAL 85.9 mm Hg Normal 80.0-100.0 [facility] Comment on above: Performed By: #### L [id number] ####[employer] Architect: MARY SOTELO ([id number])[facility])[address] [place] [address] SOURCE OF OXYGEN CPAP Normal [facility] Comment on above: Result Comment: 30% Performed By: #### L [id number] ####[employer] Architect: MARY SOTELO ([id number])[facility])[address] [place] [address] Base excess Calc (Bld) [Moles/Vol] 0.4 mmol/L Normal -3.0-3.0 [facility] Comment on above: Performed By: #### L [id number] ####[employer] Architect: MARY SOTELO ([id number])[facility] [place] [address] CO2 [Moles/Vol] 29.5 mmol/L High 23.0-27.0 [facility] Comment on above: Performed By: #### L [id number] ####[employer] Architect: MARY SOTELO ([id number])[facility] [place] [address] HCO3 (Bld) [Moles/Vol] 27.7 mmol/L High 21.0-25.0 [facility] Comment on above: Performed By: #### L [id number] ####[employer] Architect: MARY SOTELO ([id number])[facility] ([facility])[address] [place] [address] Hemoglobin (Bld) [Mass/Vol] 9.8 g/dL Normal Screen only [facility] Comment on above: Performed By: #### L [id number] ####[employer] Architect: MARY SOTELO ([id number])[facility])[address] [place] [address] OXYGEN SATURATION (%) IN ARTERIAL BLOOD 96.6 % Normal 95.0-100.0 [facility] Comment on above: Performed By: #### L [id number] ####Ob[employer] Architect: MARY SOTELO ([id number])[facility])[address] [place] [address] PCO2 ARTERIAL 59.5 mm Hg High >35.0-<45.0 [facility] Comment on above: Performed By: #### L [id number] ####[employer] Architect: MARY SOTELO ([id number])[facility] ([facility])[address] [place] [address] PH ARTERIAL 7.286 Low 7.350-7.450 [facility] Comment on above: Performed By: #### L [id number] ####[employer] Architect: MARY SOTELO ([id number])[facility] ([facility])[address] [place] [address] [place] PO2 ARTERIAL 88.7 mm Hg Normal 80.0-100.0 [facility] Comment on above: Performed By: #### L [id number] ####[employer] Architect: MARY SOTELO ([id number])[facility])[address] [place] [address] SOURCE OF OXYGEN CPAP Normal [facility] Comment on above: Result Comment: 30% Performed By: #### L [id number] ####Ob[employer] Architect: MARY SOTELO ([id number])[facility] ([facility])[address] [place] [address] Basic metabolic 1998 panelon 08-21-2024 Anion gap [Moles/Vol] 7 mmol/L 3 - 13 mmol/L [facility] Calcium [Mass/Vol] 7.8 mg/dL Low 8.4 - 10. 4 mg/dL [facility] Chloride [Moles/Vol] 99 mmol/L 98 - 10 7 mmol/L [facility] CO2 [Moles/Vol] 27 mmol/L 22 - 30 mmol/L [facility] Creatinine [Mass/Vol] 4.52 mg/dL High 0.52 - 1.04 mg/dL [facility] GFR/1.73 sq M.predicted (S/P/Bld) [Vol rate/Area] 10.3 mL/min Low - PINF [facility] Glucose [Mass/Vol] 73 mg/dL 70 - 100 mg/dL [facility] Interpretation and review of laboratory results Abnormal [facility] Potassium [Moles/Vol] 3.2 mmol/L Low 3.5 - 5.1 mmol/L [facility] Sodium [Moles/Vol] 133 mmol/L Low 135 - 145 mmol/L [facility] Urea nitrogen [Mass/Vol] 47 mg/dL High 7 - 17 mg/dL [facility] CARECOORDon 08-21-2024 CARECOORD Normal [facility] CBC W Auto Differential pane l (Bld)on 08-21-2024 Basophils (Bld) [#/Vol] 0 10*3/uL 0.0 - 0.2 10*3/uL [facility] Basophils/100 WBC (Bld) 0.3 % 0.0 - 2.0 % [facility] Eosinophils (Bld) [#/Vol] 0.6 10*3/uL High 0.0 - 0.5 10*3/uL [facility] Eosinophils/100 WBC (Bld) 9.4 % High 0.0 - 6.0 % [facility] Erythrocyte distribution width (RBC) [Ratio] 15.9 % High 11.5 - 15.0 % [facility] Hematocrit (Bld) [Volume fraction] 30.6 % Low 35.0 - 47.0 % [facility] Hemoglobin (Bld) [Mass/Vol] 9.9 g/dL Low 11.7 - 16.0 g/dL [facility] Immature granulocytes (Bld) [#/Vol] 0 10*3/uL NINF - 0.1 10*3/uL [facility] Immature granulocytes/100 WBC (Bld) 0.2 % 0.0 - 2.0 % [facility] Interpretation and review of laboratory results Abnormal [facility] Lymphocytes (Bld) [#/Vol] 1.2 10*3/uL 1.0 - 4.3 10*3/uL [facility] Lymphocytes/100 WBC (Bld) 19.6 % 15.0 - 45.0 % [facility] MCH (RBC) [Entitic mass] 29.6 pg 26.0 - 34.0 pg [facility] MCHC (RBC) [Mass/Vol] 32.4 % 30.5 - 36.0 % [facility] MCV (RBC) [Entitic vol] 91.3 fL 77.0 - 99.0 fL [facility] Monocytes (Bld) [#/Vol] 0.5 10*3/uL 0.0 - 0.9 10*3/uL [facility] Monocytes/100 WBC (Bld) 7.6 % 5.0 - 13.0 % [facility] Neutrophils (Bld) [#/Vol] 3.9 10*3/uL 1.8 - 7.5 10*3/uL [facility] Neutrophils/100 WBC (Bld) 62.9 % 38.0 - 82.0 % [facility] Nucleated RBC/100 WBC (Bld) [Ratio] 0 % [facility] Platelet mean volume (Bld) [Entitic vol] 10.5 fL 9.0 - 12.7 fL [facility] Platelets (Bld) [#/Vol] 157 10*3/uL 140 - 440 10*3/uL [facility] RBC (Bld) [#/Vol] 3.35 10*6/uL Low 3.80 - 5.2 0 10*6/uL [facility] WBC (Bld) [#/Vol] 6.2 10*3/uL 3.6 - 10.7 10*3/uL [facility] CBC WITH AUTO DIFFERENTIALon 08-21-2024 Basophils (Bld) [#/Vol] 0.0 10*3/uL Normal 0.0-0.2 [facility] Comment on above: Performed By: #### L [id number] ####[employer] Architect: MARY SOTELO ([id number])[facility])[address] [place] [address] Basophils/100 WBC (Bld) 0.3 % Normal 0.0-2.0 [facility] Comment on above: Performed By: #### L [id number] ####[employer] Architect: MARY SOTELO ([id number])[facility])[address] [place] [address] Eosinophils (Bld) [#/Vol] 0.6 10*3/uL High 0.0-0.5 [facility] Comment on above: Performed By: #### L [id number] ####[employer] Architect: MARY SOTELO ([id number])[facility])[address] [place] [address] Eosinophils/100 WBC (Bld) 9.4 % High 0.0-6.0 [facility] Comment on above: Performed By: #### L [id number] ####[employer] Architect: MARY SOTELO ([id number])[facility])[address] [place] [address] Erythrocyte distribution width (RBC) [Ratio] 15.9 % High 11.5-15.0 [facility] Comment on above: Performed By: #### L [id number] ####[employer] Architect: MARY SOTELO ([id number])[facility])[address] [place] [address] Hematocrit (Bld) [Volume fraction] 30.6 % Low 35.0-47.0 [facility] Comment on above: Performed By: #### L [id number] ####[employer] Architect: MARY SOTELO ([id number])[facility])[address] [place] [address] Hemoglobin (Bld) [Mass/Vol] 9.9 g/dL Low 11.7-16.0 [facility] Comment on above: Performed By: #### L [id number] ####[employer] Architect: MARY SOTELO ([id number])[facility])[address] [place] [address] IMMATURE GRANS % 0.2 % Normal 0.0-2.0 [facility] Comment on above: Performed By: #### L [id number] ####[employer] Architect: MARY SOTELO ([id number])[facility])[address] [place] [address] IMMATURE GRANS ABSOLUTE 0.0 10*3/uL Normal <0.1 [facility] Comment on above: Performed By: #### L [id number] ####[employer] Architect: MARY SOTELO ([id number])[facility])[address] [place] [address] Lymphocytes (Bld) [#/Vol] 1.2 10*3/uL Normal 1.0-4.3 [facility] Comment on above: Performed By: #### L [id number] ####[employer] Architect: MARY SOTELO ([id number])[facility])[address] [place] [address] Lymphocytes/100 WBC (Bld) 19.6 % Normal 15.0-45.0 [facility] Comment on above: Performed By: #### L [id number] ####[employer] Architect: MARY SOTELO ([id number])[facility])[address] [place] [address] MCH (RBC) [Entitic mass] 29.6 pg Normal 26.0-34.0 [facility] Comment on above: Performed By: #### L [id number] ####[employer] Architect: MARY SOTELO ([id number])[facility])[address] [place] [address] MCHC 32.4 % Normal 30.5-36.0 [facility] Comment on above: Performed By: #### L [id number] ####[employer] Architect: MARY SOTELO ([id number])[facility])[address] [place] [address] MCV (RBC) [Entitic vol] 91.3 fL Normal 77.0-99.0 [facility] Comment on above: Performed By: #### L [id number] ####[employer] Architect: MARY SOTELO ([id number])[facility])[address] [place] [address] Monocytes (Bld) [#/Vol] 0.5 10*3/uL Normal 0.0-0.9 [facility] Comment on above: Performed By: #### L [id number] ####[employer] Architect: MARY SOTELO ([id number])[facility])[address] [place] [address] Monocytes/100 WBC (Bld) 7.6 % Normal 5.0-13.0 [facility] Comment on above: Performed By: #### L [id number] ####[employer] Architect: MARY SOTELO ([id number])[facility])[address] [place] [address] NEUTROPHILS ABSOLUTE 3.9 10*3/uL Normal 1.8-7.5 [facility] Comment on above: Performed By: #### L [id number] ####[employer] Architect: MARY SOTELO ([id number])[facility])[address] [place] [address] Neutrophils/100 WBC (Bld) 62.9 % Normal 38.0-82.0 [facility] Comment on above: Performed By: #### L [id number] ####Ob[employer] Architect: MARY SOTELO ([id number])[facility])[address] [place] [address] NRBC 0.0 /100 WBCs Normal 0.0-2.0 [facility] Comment on above: Performed By: #### L [id number] ####[employer] Architect: MARY SOTELO ([id number])[facility])[address] [place] [address] Platelet mean volume (Bld) [Entitic vol] 10.5 fL Normal 9.0-12.7 [facility] Comment on above: Performed By: #### L [id number] ####[employer] Architect: MARY SOTELO ([id number])[facility])[address] [place] [address] Platelets (Bld) [#/Vol] 157 10*3/uL Normal 140-440 [facility] Comment on above: Performed By: #### L [id number] ####[employer] Architect: MARY SOTELO ([id number])[facility])[address] [place] [address] RBC (Bld) [#/Vol] 3.35 10*6/uL Low 3.80-5.20 [facility] Comment on above: Performed By: #### L [id number] ####[employer] Architect: MARY SOTELO ([id number])[facility])[address] [place] [address] WBC (Bld) [#/Vol] 6.2 10*3/uL Normal 3.6-10.7 [facility] Comment on above: Performed By: #### L [id number] ####[employer] Architect: MARY SOTELO ([id number])[facility])[address] [place] [address] COMPLETE URINALYSISon 2023 BACTERIA (#/HPF) IN URINE Many Abnormal Negative [facility] Comment on above: Performed By: #### L [id number] ####[employer] Architect: MARY SOTELO ([id number])[facility])[address] [place] [address] BILIRUBIN, TOTAL PRESENCE IN URINE Negative Normal Negative [facility] Comment on above: Performed By: #### L [id number] ####[employer] Architect: MARY SOTELO ([id number])[facility])[address] [place] [address] Clarity (U) Extra Turbid Abnormal [facility] Comment on above: Performed By: #### L [id number] ####[employer] Architect: MARY SOTELO ([id number])[facility])[address] [place] [address] Color (U) Yellow Normal Lt. Yellow [facility] Comment on above: Performed By: #### L [id number] ####[employer] Architect: MARY SOTELO ([id number])[facility])[address] [place] [address] GLUCOSE (MG/DL) IN URINE Normal Normal Normal (<70) [facility] Comment on above: Performed By: #### L [id number] ####[employer] Architect: MARY SOTELO ([id number])[facility])[address] [place] [address] HEMOGLOBIN PRESENCE IN URINE 1.0 mg/dL Abnormal Negative [facility] Comment on above: Performed By: #### L [id number] ####[employer] Architect: MARY SOTELO ([id number])[facility])[address] [place] [address] HYALINE CASTS (#/LPF) IN URINE SEDIMENT BY MICROSCOPY Negative Normal Negative [facility] Comment on above: Performed By: #### L [id number] ####[employer] Architect: MARY SOTELO ([id number])[facility])[address] [place] [address] Ketones Ql (U) Negative Normal Negative [facility] Comment on above: Performed By: #### L [id number] ####[employer] Architect: MARY SOTELO ([id number])[facility])[address] [place] [address] LEUKOCYTE ESTERASE PRESENCE IN URINE BY TEST STRIP 500 Bere/uL Abnormal Negative [facility] Comment on above: Performed By: #### L [id number] ####[employer] Architect: MARY SOTELO ([id number])[facility])[address] [place] [address] NITRITE PRESENCE IN URINE Negative Normal Negative [facility] Comment on above: Performed By: #### L [id number] ####[employer] Architect: MARY SOETLO ([id number])[facility])[address] [place] [address] pH (U) 6.0 [pH] Normal 5.0-8.0 [facility] Comment on above: Performed By: #### L [id number] ####[employer] Architect: MARY SOTELO ([id number])[facility])[address] [place] [address] Protein (U) [Mass/Vol] 100 mg/dL Abnormal Negative [facility] Comment on above: Performed By: #### L [id number] ####[employer] Architect: MARY SOTELO ([id number])[facility])[address] [place] [address] RBC (#/HPF) IN URINE SEDIMENT >100 Abnormal 0-2 [facility] Comment on above: Performed By: #### L [id number] ####[employer] Architect: MARY SOTELO ([id number])[facility])[address] [place] [address] Specific gravity (U) [Rel density] 1.009 Normal 1.005-1.030 [facility] Comment on above: Performed By: #### L [id number] ####[employer] Architect: MARY SOTELO ([id number])[facility])[address] [place] [address] SQUAMOUS EPITHELIAL CELLS (#/HPF) IN URINE SEDIMENT Negative Normal 3-5 [facility] Comment on above: Performed By: #### L [id number] ####[employer] Architect: MARY SOTELO ([id number])[facility])[address] [place] [address] [place] UROBILINOGEN (MG/DL) IN URINE Normal Normal Normal (0-1) [facility] Comment on above: Performed By: #### L [id number] ####[employer] Architect: MARY SOTELO ([id number])[facility] [place] [address] WBC (LEUKOCYTE) (#/HPF) IN URINE SEDIMENT >100 Abnormal 0-5 [facility] Comment on above: Performed By: #### L [id number] ####[employer] Architect: MARY SOTELO ([id number])[facility] [place] [address] [place] WBC (LEUKOCYTE) CLUMPS (#/HPF) IN URINE SEDIMENT Many Abnormal Negative [facility] Comment on above: Performed By: #### L [id number] ####[employer] Architect: MARY SOTELO ([id number])[facility] [place] [address] [place] YEAST (#/HPF) IN URINE Moderate Abnormal Negative [facility] Comment on above: Performed By: #### L [id number] ####[employer] Architect: MARY SOTELO ([id number])[facility] [place] [address] [place] GLUCOSE, RANDOMon 08-21-2024 Glucose [Mass/Vol] 27 mg/dL Critically low 70-100 [facility] Comment on above: Performed By: #### L [id number] ####[employer] Architect: MARY SOTELO ([id number])[facility] [place] [address] Glucose (Bld) [Mass/Vol]Orde red By: Madison Donaldson on 08-21-2024 Glucose [Mass/Vol] 27 mg/dL Critically low 70 - 10 0 mg/dL [facility] Interpretation and review of laboratory results Abnormal [facility] - Chemistry and C hemistry - challengeon 08-21-2024 Glucose [Mass/Vol] 228 mg/dL High 70 - 100 mg/dL [facility] Glucose [Mass/Vol] 123 mg/dL High 70 - 100 mg/dL [facility] Glucose [Mass/Vol] 110 mg/dL High 70 - 100 mg/dL [facility] Base excess Calc (Bld) [Moles/Vol] 3.2 mmol/L High -3.0 - 3.0 mmol/L [facility] CO2 (Bld) [Partial pressure] 51.3 mm[Hg] High - PINF [facility] CO2 [Moles/Vol] 30.8 mmol/L High 23.0 - 27.0 mmol/L [facility] HCO3 (Bld) [Moles/Vol] 29.2 mmol/L High 21.0 - 25.0 mmol/L [facility] Oxygen (Bld) [Partial pressure] 85.9 mm[Hg] [facility] pH (Bld) 7.373 [pH] 7.350 - 7.450 [facility] Glucose [Mass/Vol] 103 mg/dL High 70 - 100 mg/dL [facility] Glucose [Mass/Vol] 106 mg/dL High 70 - 100 mg/dL [facility] Glucose [Mass/Vol] 128 mg/dL High 70 - 100 mg/dL [facility] Glucose [Mass/Vol] 166 mg/dL High 70 - 100 mg/dL [facility] Glucose [Mass/Vol] mg/dL Low 70 - 100 mg/dL [facility] Base excess Calc (Bld) [Moles/Vol] 0.4 mmol/L -3.0 - 3.0 mmol/L [facility] CO2 (Bld) [Partial pressure] 59.5 mm[Hg] High - PINF [facility] CO2 [Moles/Vol] 29.5 mmol/L High 23.0 - 27.0 mmol/L [facility] HCO3 (Bld) [Moles/Vol] 27.7 mmol/L High 21.0 - 25.0 mmol/L [facility] Oxygen (Bld) [Partial pressure] 88.7 mm[Hg] [facility] pH (Bld) 7.286 [pH] Low 7.350 - 7.450 [facility] Magnesium [Mass/Vol] 2.1 mg/dL 1.6 - 2 .3 mg/dL [facility] Laboratory - Hematology and Cell countson 08-21-2024 Hemoglobin (Bld) [Mass/Vol] 10.2 g/dL Screen only [facility] Hemoglobin (Bld) [Mass/Vol] 9.8 g/dL Screen only [facility] MAGNESIUMon 08-21-2024 Magnesium [Mass/Vol] 2.1 mg/dL Normal 1.6-2.3 [facility] Comment on above: Performed By: #### L [id number], LAB15, [id number] ####[employer] Architect: MARY SOTELO ([id number])[facility])[address] [place] [address] No Panel Informationon 08-21 Interpretation and review of laboratory results Abnormal [facility] Interpretation and review of laboratory results Abnormal [facility] Interpretation and review of laboratory results Abnormal [facility] Interpretation and review of laboratory results Abnormal [facility] Source Of O[facility] CPAP [facility] Interpretation and review of laboratory results Abnormal [facility] Interpretation and review of laboratory results Abnormal [facility] Interpretation and review of laboratory results Abnormal [facility] Interpretation and review of laboratory results Abnormal [facility] Interpretation and review of laboratory results Abnormal [facility] Interpretation and review of laboratory results Abnormal [facility] Source Of Oxygen CPAP [facility] Interpretation and review of laboratory results Normal [facility] Nursing Noteon 08-21-2024 Nursing Note Normal [facility] PHOSPHORUSon 08-21-2024 Phosphate [Mass/Vol] 3.5 mg/dL Normal 2.5-4.5 [facility] Comment on above: Performed By: #### L ABGabbie, LAB15, [id number] ####[employer] Architect: MARY SOTELO ([id number])[facility] [place] [address] [place] Phosphate [Moles/Vol]on 08-03 Phosphate [Mass/Vol] 3.5 mg/dL 2.5 - 4 .5 mg/dL [facility] Progress Noteon 08-21-2024 Progress Note Normal [facility] Progress Note Normal [facility] Progress Note Normal [facility] URINE CULTUREon 08-21-2024 Bacteria identified Cx Nom (U) Normal [facility] Comment on above: Performed By: #### L [id number] ####Obiee [employer] Solution Architect: MARY SOTELO ([id number])[address] Urinalysis complete panel (U )on 08-21-2024 Bacteria LM.HPF (Urine sed) [#/Area] Many Abnormal Negative /HPF [facility] Bilirubin Ql (U) Negative Negative mg/dL [facility] Clarity (U) Extra Turbid Abnormal Clear [facility] Color (U) Yellow Lt. Yellow [facility] Epithelial cells.squamous LM.HPF (Urine sed) [#/Area] Negative [facility]l (U) Normal Normal (<70) mg/dL [facility] Hemoglobin Ql (U) 1.0 mg/dL Abnormal Negative [facility] Hyaline casts Auto (Urine sed) [#/Area] Negative Negative /LPF [facility] Interpretation and review of laboratory results Abnormal [facility] Ketones (U) [Mass/Vol] Negative Negat pawan mg/dL [facility] Leukocyte clumps LM.HPF (Urine sed) [#/Area] Many Abnormal Negative /HPF [facility] Leukocyte esterase Test strip Ql (U) 500 Abnormal Negative Bere/uL [facility] Nitrite Ql (U) Negative Negative [facility] th pH (U) 6.0 [pH] 5.0 - 8.0 pH [facility] Protein (U) [Mass/Vol] 100 mg/dL Abnormal Negative [facility] RBC LM.HPF (Urine sed) [#/Area] /[HPF] Abnormal [facility] Specific gravity (U) [Rel density] 1.009 1.005 - 1.030 [facility] Urobilinogen (U) [Mass/Vol] Normal Normal (0-1) mg/dL [facility] WBC LM.HPF (Urine sed) [#/Area] /[HPF] Abnormal [facility] Yeast.budding LM.HPF (Urine sed) [#/Area] Moderate Abnormal Negative /HPF [facility] BASIC METABOLIC PANELon 08-03 Anion gap [Moles/Vol] 8 mmol/L Normal 3-13 [facility] Comment on above: Performed By: #### L AB15, [id number], [id number] ####Obiee Obia Solution Architect: MARY SOTELO ([id number])[facility] [place] [address] [place] Calcium [Mass/Vol] 7.8 mg/dL Low 8.4-10.4 [facility] Comment on above: Performed By: #### L AB15, [id number], [id number] ####Obiee Obia Solution Architect: MARY SOTELO ([id number])[facility] [place] [address] [place] Chloride [Moles/Vol] 97 mmol/L Low 98-107 [facility] Comment on above: Performed By: #### L AB15, [id number], [id number] ####Obiee Obia Solution Architect: MARY SOTELO ([id number])[facility] [place] [address] CO2 [Moles/Vol] 24 mmol/L Normal 22-30 [facility] Comment on above: Performed By: #### Dora ABDante, [id number], [id number] ####Obiee Obia Solution Architect: MARY SOTELO ([id number])[facility])[address] [place] [address] Creatinine [Mass/Vol] 3.58 mg/dL High 0.52-1.04 [facility] Comment on above: Performed By: #### L AB15, [id number], [id number] ####Obiee Obia Solution Architect: MARY SOTELO ([id number])[facility])[address] [place] [address] [place] GLOMERULAR FILTRATION RATE ML/MIN/1.73 SQ M.PREDICTED 13.6 mL/min/1.73m*2 Low >60.0 [facility] Comment on above: Result Comment: Calc ulation based on the Chronic Kidney Disease Epidemiology Collaboration (CKD-EPI) equation refit without adjustment for race Performed By: #### L AB15, [id number], [id number] ####Obiee Obia Solution Architect: MARY SOTELO ([id number])[facility] [place] [address] [place] Glucose [Mass/Vol] 150 mg/dL High 70-100 [facility] Comment on above: Performed By: #### L AB15, [id number], [id number] ####Obiee Obia Solution Architect: MARY SOTELO ([id number])[facility] ([facility])[address] [place] [address] Potassium [Moles/Vol] 4.0 mmol/L Normal 3.5-5.1 [facility] Comment on above: Performed By: #### L AB15, [id number], [id number] ####Obiee Obia Solution Architect: MARY SOTELO ([id number])[facility] ([facility])[address] [place] [address] Sodium [Moles/Vol] 129 mmol/L Low 135-145 [facility] Comment on above: Performed By: #### L AB15, [id number], [id number] ####Obiee Obia Solution Architect: MARY SOTELO ([id number])[facility] ([facility])[address] [place] [address] Urea nitrogen [Mass/Vol] 41 mg/dL High 7-17 [facility] Comment on above: Performed By: #### L AB15, [id number], [id number] ####Obiee Obia Solution Architect: MARY SOTELO ([id number])[facility] ([facility])[address] [place] [address] BLOOD GAS ARTERIALon 08-20- 024 Base excess Calc (Bld) [Moles/Vol] -0.7000 mmol/L Normal -3.0-3.0 [facility] Comment on above: Performed By: #### L [id number] ####Obiee Obia Solution Architect: MARY SOTELO ([id number])[facility] ([facility])[address] [place] [address] [place] CO2 [Moles/Vol] 28.6 mmol/L High 23.0-27.0 [facility] Comment on above: Performed By: #### L [id number] ####Obiee Obia Solution Architect: MARY SOTELO ([id number])[facility] ([facility])[address] [place] [address] HCO3 (Bld) [Moles/Vol] 26.8 mmol/L High 21.0-25.0 [facility] Comment on above: Performed By: #### L [id number] ####Obiee Obia Solution Architect: MARY SOTELO ([id number])[facility] ([facility])[address] [place] [address] Hemoglobin (Bld) [Mass/Vol] 10.3 g/dL Normal Screen only [facility] Comment on above: Performed By: #### L [id number] ####Obiee Obia Solution Architect: MARY SOTELO ([id number])[facility])[address] [place] [address] OXYGEN SATURATION (%) IN ARTERIAL BLOOD 98.1 % Normal 95.0-100.0 [facility] Comment on above: Performed By: #### L [id number] ####Obiee Obia Solution Architect: MARY SOTELO ([id number])[facility])[address] [place] [address] PCO2 ARTERIAL 59.2 mm Hg High >35.0-<45.0 [facility] Comment on above: Performed By: #### L [id number] ####Obiee Obia Solution Architect: MARY SOTELO ([id number])[facility] ([facility])[address] [place] [address] PH ARTERIAL 7.274 Low 7.350-7.450 [facility] Comment on above: Performed By: #### L [id number] ####Obiee Obia Solution Architect: MARY SOTELO ([id number])[facility] ([facility])[address] [place] [address] PO2 ARTERIAL 113.3 mm Hg High 80.0-100.0 [facility] Comment on above: Performed By: #### L [id number] ####Obiee Obia Solution Architect: MARY SOTELO ([id number])[facility] ([facility])[address] [place] [address] SOURCE OF OXYGEN 40% Oxygen Normal [facility] Comment on above: Performed By: #### L [id number] ####Obiee Obia Solution Architect: MARY SOTELO ([id number])[facility] ([facility])[address] [place] [address] Base excess Calc (Bld) [Moles/Vol] 0.2 mmol/L Normal -3.0-3.0 [facility] Comment on above: Performed By: #### L [id number] ####Obiee Obia Solution Architect: MARY SOTELO ([id number])[facility] ([facility])[address] [place] [address] CO2 [Moles/Vol] 30.7 mmol/L High 23.0-27.0 [facility] Comment on above: Performed By: #### L [id number] ####Obiee Obia Solution Architect: MARY SOTELO ([id number])[facility] ([facility])[address] [place] [address] HCO3 (Bld) [Moles/Vol] 28.6 mmol/L High 21.0-25.0 [facility] Comment on above: Performed By: #### L [id number] ####Obiee Obia Solution Architect: MARY SOTELO ([id number])[facility])[address] [place] [address] Hemoglobin (Bld) [Mass/Vol] 10.5 g/dL Normal Screen only [facility] Comment on above: Performed By: #### L [id number] ####Obiee Obia Solution Architect: MARY SOTELO ([id number])[facility])[address] [place] [address] OXYGEN SATURATION (%) IN ARTERIAL BLOOD 96.9 % Normal 95.0-100.0 [facility] Comment on above: Performed By: #### L [id number] ####Obiee Obia Solution Architect: MARY SOTELO ([id number])[facility])[address] [place] [address] PCO2 ARTERIAL 67.9 mm Hg High >35.0-<45.0 [facility] Comment on above: Performed By: #### L [id number] ####Obiee Obia Solution Architect: MARY SOTELO ([id number])[facility])[address] [place] [address] PH ARTERIAL 7.242 Low 7.350-7.450 [facility] Comment on above: Performed By: #### L [id number] ####Obiee Obia Solution Architect: MARY SOTELO ([id number])[facility] [place] [address] PO2 ARTERIAL 101.2 mm Hg High 80.0-100.0 [facility] Comment on above: Performed By: #### L [id number] ####Obiee Obia Solution Architect: MARY SOTELO ([id number])[facility] ([facility])[address] [place] [address] SOURCE OF OXYGEN 40% Oxygen Normal [facility] Comment on above: Performed By: #### L [id number] ####Obiee Obia Solution Architect: MARY SOTELO ([id number])[facility] ([facility])[address] [place] [address] Base excess Calc (Bld) [Moles/Vol] 0.5 mmol/L Normal -3.0-3.0 [facility] Comment on above: Performed By: #### L [id number] ####Obiee Obia Solution Architect: MARY SOTELO ([id number])[facility] ([facility])[address] [place] [address] CO2 [Moles/Vol] 31.0 mmol/L High 23.0-27.0 [facility] Comment on above: Performed By: #### L [id number] ####Obiee Obia Solution Architect: MARY SOTELO ([id number])[facility])[address] [place] [address] HCO3 (Bld) [Moles/Vol] 28.9 mmol/L High 21.0-25.0 [facility] Comment on above: Performed By: #### L [id number] ####Obiee Obia Solution Architect: MARY SOTELO ([id number])[facility])[address] [place] [address] Hemoglobin (Bld) [Mass/Vol] 10.4 g/dL Normal Screen only [facility] Comment on above: Performed By: #### L [id number] ####Obiee Obia Solution Architect: MARY SOTELO ([id number])[facility] ([facility])[address] [place] [address] OXYGEN SATURATION (%) IN ARTERIAL BLOOD 68.2 % Low 95.0-100.0 [facility] Comment on above: Performed By: #### L [id number] ####Obiee Obia Solution Architect: MARY SOTELO ([id number])[facility] ([facility])[address] [place] [address] PCO2 ARTERIAL 68.4 mm Hg High >35.0-<45.0 [facility] Comment on above: Performed By: #### L [id number] ####Obiee Obia Solution Architect: MARY SOTELO ([id number])[facility])[address] [place] [address] PH ARTERIAL 7.244 Low 7.350-7.450 [facility] Comment on above: Performed By: #### L [id number] ####Obiee Obia Solution Architect: MARY SOTELO ([id number])[facility] ([facility])[address] [place] [address] PO2 ARTERIAL 36.2 mm Hg Critically low 80.0-100.0 [facility] Comment on above: Performed By: #### L [id number] ####Obiee Obia Solution Architect: MARY SOTELO ([id number])[facility])[address] [place] [address] SOURCE OF OXYGEN Bi-PAP Normal [facility] Comment on above: Result Comment: 10/07 , 3 L Performed By: #### L [id number] ####Obiee Obia Solution Architect: MARY SOTELO ([id number])[facility])[address] [place] [address] Base excess Calc (Bld) [Moles/Vol] -1.0000 mmol/L Normal -3.0-3.0 [facility] Comment on above: Performed By: #### L [id number] ####Obiee Obia Solution Architect: MARY SOTELO ([id number])[facility])[address] [place] [address] CO2 [Moles/Vol] 30.1 mmol/L High 23.0-27.0 [facility] Comment on above: Performed By: #### L [id number] ####Obiee Obia Solution Architect: MARY [id number])[facility] [place] [address] HCO3 (Bld) [Moles/Vol] 27.9 mmol/L High 21.0-25.0 [facility] Comment on above: Performed By: #### L [id number] ####Obiee Obia Solution Architect: MARY SOTELO ([id number])[facility])[address] [place] [address] Hemoglobin (Bld) [Mass/Vol] 10.1 g/dL Normal Screen only [facility] Comment on above: Performed By: #### L [id number] ####Obiee Obia Solution Architect: MARY SOTELO ([id number])[facility])[address] [place] [address] OXYGEN SATURATION (%) IN ARTERIAL BLOOD 92.1 % Low 95.0-100.0 [facility] Comment on above: Performed By: #### L [id number] ####Obiee Obia Solution Architect: MARY SOTELO ([id number])[facility])[address] [place] [address] PCO2 ARTERIAL 71.5 mm Hg High >35.0-<45.0 [facility] Comment on above: Performed By: #### L [id number] ####Obiee Obia Solution Architect: MARY SOTELO ([id number])[facility])[address] [place] [address] PH ARTERIAL 7.209 Low 7.350-7.450 [facility] Comment on above: Performed By: #### L [id number] ####Obiee Obia Solution Architect: MARY SOTELO ([id number])[facility] ([facility])[address] [place] [address] PO2 ARTERIAL 63.4 mm Hg Low 80.0-100.0 [facility] Comment on above: Performed By: #### L [id number] ####Obiee Obia Solution Architect: MARY SOTELO ([id number])[facility])[address] [place] [address] SOURCE OF OXYGEN Nasal cannula Normal [facility] Comment on above: Result Comment: 3L Performed By: #### L [id number] ####Obiee Obia Solution Architect: MARY SOTELO ([id number])[facility])[address] [place] [address] Basic metabolic 1998 panelon 08-20-2024 Anion gap [Moles/Vol] 8 mmol/L 3 - 13 mmol/L [facility] Calcium [Mass/Vol] 7.8 mg/dL Low 8.4 - 10. 4 mg/dL [facility] Chloride [Moles/Vol] 97 mmol/L Low 98 - 10 7 mmol/L [facility] CO2 [Moles/Vol] 24 mmol/L 22 - 30 mmol/L [facility] Creatinine [Mass/Vol] 3.58 mg/dL High 0.52 - 1.04 mg/dL [facility] GFR/1.73 sq M.predicted (S/P/Bld) [Vol rate/Area] 13.6 mL/min Low - PINF [facility] Glucose [Mass/Vol] 150 mg/dL High 70 - 100 mg/dL [facility] Interpretation and review of laboratory results Abnormal [facility] Potassium [Moles/Vol] 4 mmol/L 3.5 - 5.1 mmol/L [facility] Sodium [Moles/Vol] 129 mmol/L Low 135 - 145 mmol/L [facility] Urea nitrogen [Mass/Vol] 41 mg/dL High 7 - 17 mg/dL [facility] CALCIUM, IONIZEDon CALCIUM IONIZED 4.30 mg/dL Normal 4.30-5.20 [facility] Comment on above: Performed By: #### L [id number] ####Obiee Obia Solution Architect: MARY SOTELO ([id number])[facility])[address] [place] [address] PH, IONIZED CALCIUM 7.25 Low 7.31-7.46 [facility] Comment on above: Performed By: #### L [id number] ####Obiee Obia Solution Architect: MARY SOTELO ([id number])[facility] ([facility])[address] [place] [address] CARECOORDon 08-20-2024 CARECOORD Normal [facility] CBC W Auto Differential pane l (Bld)on 08-20-2024 Basophils (Bld) [#/Vol] 0 10*3/uL 0.0 - 0.2 10*3/uL [facility] Basophils/100 WBC (Bld) 0 % 0.0 - 2.0 % [facility] Eosinophils (Bld) [#/Vol] 0.1 10*3/uL 0.0 - 0.5 10*3/uL [facility] Eosinophils/100 WBC (Bld) 1.4 % 0.0 - 6.0 % [facility] Erythrocyte distribution width (RBC) [Ratio] 15.5 % High 11.5 - 15.0 % [facility] Hematocrit (Bld) [Volume fraction] 30.5 % Low 35.0 - 47.0 % [facility] Hemoglobin (Bld) [Mass/Vol] 9.9 g/dL Low 11.7 - 16.0 g/dL [facility] Immature granulocytes (Bld) [#/Vol] 0 10*3/uL NINF - 0.1 10*3/uL [facility] Immature granulocytes/100 WBC (Bld) 0.5 % 0.0 - 2.0 % [facility] Interpretation and review of laboratory results Abnormal [facility] Lymphocytes (Bld) [#/Vol] 0.6 10*3/uL Low 1.0 - 4.3 10*3/uL [facility] Lymphocytes/100 WBC (Bld) 10.8 % Low 15.0 - 45.0 % [facility] MCH (RBC) [Entitic mass] 29.5 pg 26.0 - 34.0 pg [facility] MCHC (RBC) [Mass/Vol] 32.5 % 30.5 - 36.0 % [facility] MCV (RBC) [Entitic vol] 90.8 fL 77.0 - 99.0 fL [facility] Monocytes (Bld) [#/Vol] 0.3 10*3/uL 0.0 - 0.9 10*3/uL [facility] Monocytes/100 WBC (Bld) 4.5 % Low 5.0 - 13.0 % [facility] Neutrophils (Bld) [#/Vol] 4.8 10*3/uL 1.8 - 7.5 10*3/uL [facility] Neutrophils/100 WBC (Bld) 82.8 % High 38.0 - 82.0 % [facility] Nucleated RBC/100 WBC (Bld) [Ratio] 0 % [facility] Platelet mean volume (Bld) [Entitic vol] 10.3 fL 9.0 - 12.7 fL [facility] Platelets (Bld) [#/Vol] 145 10*3/uL 140 - 440 10*3/uL [facility] RBC (Bld) [#/Vol] 3.36 10*6/uL Low 3.80 - 5.2 0 10*6/uL [facility] WBC (Bld) [#/Vol] 5.8 10*3/uL 3.6 - 10.7 10*3/uL [facility] CBC WITH AUTO DIFFERENTIALon 08-20-2024 Basophils (Bld) [#/Vol] 0.0 10*3/uL Normal 0.0-0.2 [facility] Comment on above: Performed By: #### L [id number] ####Obiee [employer] Solution Architect: MARY SOTELO ([id number])[facility])[address] [place] [address] Basophils/100 WBC (Bld) 0.0 % Normal 0.0-2.0 [facility] Comment on above: Performed By: #### L [id number] ####Obiee [employer] Solution Architect: MARY SOTELO ([id number])[facility])[address] [place] [address] Eosinophils (Bld) [#/Vol] 0.1 10*3/uL Normal 0.0-0.5 [facility] Comment on above: Performed By: #### L [id number] ####Ob[employer]e [employer] Architect: MARY SOTELO ([id number])[facility])[address] [place] [address] Eosinophils/100 WBC (Bld) 1.4 % Normal 0.0-6.0 [facility] Comment on above: Performed By: #### L [id number] ####Obiee [employer] Solution Architect: MARY SOTELO ([id number])[facility])[address] [place] [address] Erythrocyte distribution width (RBC) [Ratio] 15.5 % High 11.5-15.0 [facility] Comment on above: Performed By: #### L [id number] ####Ob[employer]e [employer] Architect: MARY SOTELO ([id number])[address] Hematocrit (Bld) [Volume fraction] 30.5 % Low 35.0-47.0 [facility] Comment on above: Performed By: #### L [id number] ####Ob[employer]e [employer] Architect: MARY SOTELO ([id number])[facility])[address] [place] [address] Hemoglobin (Bld) [Mass/Vol] 9.9 g/dL Low 11.7-16.0 [facility] Comment on above: Performed By: #### L [id number] ####Ob[employer]e [employer] Architect: MARY SOTELO ([id number])[facility])[address] [place] [address] IMMATURE GRANS % 0.5 % Normal 0.0-2.0 [facility] Comment on above: Performed By: #### L [id number] ####Ob[employer]e [employer] Architect: MARY SOTELO ([id number])[address] IMMATURE GRANS ABSOLUTE 0.0 10*3/uL Normal <0.1 [facility] Comment on above: Performed By: #### L [id number] ####Ob[employer]e [employer] Architect: MARY SOTELO ([id number])[facility])[address] [place] [address] Lymphocytes (Bld) [#/Vol] 0.6 10*3/uL Low 1.0-4.3 [facility] Comment on above: Performed By: #### L [id number] ####Ob[employer] Architect: MARY SOTELO ([id number])[address] Lymphocytes/100 WBC (Bld) 10.8 % Low 15.0-45.0 [facility] Comment on above: Performed By: #### L [id number] ####Ob[employer]e [employer] Solution Architect: MARY [id number])[facility])[address] [place] [address] MCH (RBC) [Entitic mass] 29.5 pg Normal 26.0-34.0 [facility] Comment on above: Performed By: #### L [id number] ####Ob[employer]e [employer] Architect: MARY SOTELO ([id number])[facility])[address] [place] [address] MCHC 32.5 % Normal 30.5-36.0 [facility] Comment on above: Performed By: #### L [id number] ####Ob[employer]e [employer] Solution Architect: MARY SOTELO ([id number])[facility])[address] [place] [address] MCV (RBC) [Entitic vol] 90.8 fL Normal 77.0-99.0 [facility] Comment on above: Performed By: #### L [id number] ####Ob[employer]e [employer] Solution Architect: MARY SOTELO ([id number])[facility])[address] [place] [address] Monocytes (Bld) [#/Vol] 0.3 10*3/uL Normal 0.0-0.9 [facility] Comment on above: Performed By: #### L [id number] ####[employer] Architect: MARY SOTELO ([id number])[facility])[address] [place] [address] Monocytes/100 WBC (Bld) 4.5 % Low 5.0-13.0 [facility] Comment on above: Performed By: #### L [id number] ####[employer] Architect: MARY SOTELO ([id number])[facility])[address] [place] [address] NEUTROPHILS ABSOLUTE 4.8 10*3/uL Normal 1.8-7.5 [facility] Comment on above: Performed By: #### L [id number] ####Ob[employer]e [employer] Architect: MARY SOTELO ([id number])[facility])[address] [place] [address] Neutrophils/100 WBC (Bld) 82.8 % High 38.0-82.0 [facility] Comment on above: Performed By: #### L [id number] ####[employer] Architect: MARY SOTELO ([id number])[facility])[address] [place] [address] NRBC 0.0 /100 WBCs Normal 0.0-2.0 [facility] Comment on above: Performed By: #### L [id number] ####[employer] Architect: MARY SOTELO ([id number])[facility])[address] [place] [address] Platelet mean volume (Bld) [Entitic vol] 10.3 fL Normal 9.0-12.7 [facility] Comment on above: Performed By: #### L [id number] ####[employer] Architect: MARY SOTELO ([id number])[facility])[address] [place] [address] Platelets (Bld) [#/Vol] 145 10*3/uL Normal 140-440 [facility] Comment on above: Performed By: #### L [id number] ####[employer] Architect: MARY SOTELO ([id number])[facility])[address] [place] [address] RBC (Bld) [#/Vol] 3.36 10*6/uL Low 3.80-5.20 [facility] Comment on above: Performed By: #### L [id number] ####[employer] Architect: MARY SOTELO ([id number])[facility])[address] [place] [address] WBC (Bld) [#/Vol] 5.8 10*3/uL Normal 3.6-10.7 [facility] Comment on above: Performed By: #### L [id number] ####[employer] Architect: MARY SOTELO ([id number])[facility] [place] [address] Calcium.ionized [Moles/Vol]O rdered By: Fredy Friend on 08-20-2024 Calcium.ionized (Bld) [Moles/Vol] 4.3 mg/dL 4.30 - 5.20 mg/dL [facility] Interpretation and review of laboratory results Abnormal [facility] PH, IONIZED CALCIUM 7.25 Low 7.31 - 7.46 [facility] Consulton 08-20-2024 Consult Normal [facility] Laboratory - Chemistry and C hemistry - challengeon 08-20-2024 Base excess Calc (Bld) [Moles/Vol] -0.7000 mmol/L -3.0 - 3.0 mmol/L [facility] CO2 (Bld) [Partial pressure] 59.2 mm[Hg] High - PINF [facility] CO2 [Moles/Vol] 28.6 mmol/L High 23.0 - 27.0 mmol/L [facility] HCO3 (Bld) [Moles/Vol] 26.8 mmol/L High 21.0 - 25.0 mmol/L [facility] Oxygen (Bld) [Partial pressure] 113.3 mm[Hg] High [facility] pH (Bld) 7.274 [pH] Low 7.350 - 7.450 [facility] Glucose [Mass/Vol] 124 mg/dL High 70 - 100 mg/dL [facility] Base excess Calc (Bld) [Moles/Vol] 0.2 mmol/L -3.0 - 3.0 mmol/L [facility] CO2 (Bld) [Partial pressure] 67.9 mm[Hg] High - PINF [facility] CO2 [Moles/Vol] 30.7 mmol/L High 23.0 - 27.0 mmol/L [facility] HCO3 (Bld) [Moles/Vol] 28.6 mmol/L High 21.0 - 25.0 mmol/L [facility] Oxygen (Bld) [Partial pressure] 101.2 mm[Hg] High [facility] pH (Bld) 7.242 [pH] Low 7.350 - 7.450 [facility] Base excess Calc (Bld) [Moles/Vol] 0.5 mmol/L -3.0 - 3.0 mmol/L [facility] CO2 (Bld) [Partial pressure] 68.4 mm[Hg] High - PINF [facility] CO2 [Moles/Vol] 31 mmol/L High 23.0 - 27.0 mmol/L [facility] HCO3 (Bld) [Moles/Vol] 28.9 mmol/L High 21.0 - 25.0 mmol/L [facility] Oxygen (Bld) [Partial pressure] 36.2 mm[Hg] Critically low [facility] pH (Bld) 7.244 [pH] Low 7.350 - 7.450 [facility] Glucose [Mass/Vol] 185 mg/dL High 70 - 100 mg/dL [facility] Glucose [Mass/Vol] 158 mg/dL High 70 - 100 mg/dL [facility] Magnesium [Mass/Vol] 2 mg/dL 1.6 - 2 .3 mg/dL [facility] Laboratory - Chemistry and C hemistry - challengeOrdered By: Audrey Blanchard on 08-20-2024 Base excess Calc (Bld) [Moles/Vol] -1 mmol/L -3.0 - 3.0 mmol/L [facility] CO2 (Bld) [Partial pressure] 71.5 mm[Hg] High - PINF [facility] CO2 [Moles/Vol] 30.1 mmol/L High 23.0 - 27.0 mmol/L [facility] HCO3 (Bld) [Moles/Vol] 27.9 mmol/L High 21.0 - 25.0 mmol/L [facility] Oxygen (Bld) [Partial pressure] 63.4 mm[Hg] Low [facility] pH (Bld) 7.209 [pH] Low 7.350 - 7.450 [facility] Laboratory - Hematology and Cell countson 08-20-2024 Hemoglobin (Bld) [Mass/Vol] 10.3 g/dL Screen only [facility] Hemoglobin (Bld) [Mass/Vol] 10.5 g/dL Screen only [facility] Hemoglobin (Bld) [Mass/Vol] 10.4 g/dL Screen only [facility] Laboratory - Hematology and Cell countsOrdered By: Audrey Blanchard on 08-20-2024 Hemoglobin (Bld) [Mass/Vol] 10.1 g/dL Screen only [facility] MAGNESIUMon 08-20-2024 Magnesium [Mass/Vol] 2.0 mg/dL Normal 1.6-2.3 [facility] Comment on above: Performed By: #### L [id number], [id number], [id number] ####[employer] Architect: MARY SOTELO ([id number])[facility])[address] [place] [address] No Panel Informationon 08-20 Interpretation and review of laboratory results Abnormal [facility] Source Of Oxygen 40% Oxygen [facility] Interpretation and review of laboratory results Abnormal [facility] Interpretation and review of laboratory results Abnormal [facility] Source Of Oxygen 40% Oxygen [facility] Interpretation and review of laboratory results Abnormal [facility] Source Of Oxygen Bi-PAP [facility] Interpretation and review of laboratory results Abnormal [facility] Interpretation and review of laboratory results Abnormal [facility] Interpretation and review of laboratory results Normal [facility] No Panel InformationOrdered By: Audrey Blanchard on 08-20-2024 Interpretation and review of laboratory results Abnormal [facility] Source Of Oxygen Nasal cannula [facility] PHOSPHORUSon 08-20-2024 Phosphate [Mass/Vol] 4.1 mg/dL Normal 2.5-4.5 [facility] Comment on above: Performed By: #### L AB15, [id number], [id number] ####[employer] Architect: MARY SOTELO ([id number])[facility])[address] [place] [address] Phosphate [Moles/Vol]on 08-03 Phosphate [Mass/Vol] 4.1 mg/dL 2.5 - 4 .5 mg/dL [facility] Progress Noteon 08-20-2024 Progress Note OCCUPATIONAL THERAPY Attempted OT services, pt on hold due to pt unable to stay aroused/limited responsiveness. Will reattempt when pt is alert/able to participate. Normal [facility] Progress Note Normal [facility] Progress Note Normal [facility] Progress Note Normal [facility] Progress Note Normal [facility] BASIC METABOLIC PANELon 08-03 Anion gap [Moles/Vol] 3 mmol/L Normal 3-13 [facility] Comment on above: Performed By: #### L AB113, LAB15, [id number], [id number] ####[employer] Architect: MARY SOTELO ([id number])[facility])[address] [place] [address] Calcium [Mass/Vol] 7.4 mg/dL Low 8.4-10.4 [facility] Comment on above: Performed By: #### L AB113, LAB15, [id number], [id number] ####[employer] Architect: MARY SOTELO ([id number])[facility])[address] [place] [address] Chloride [Moles/Vol] 95 mmol/L Low 98-107 [facility] Comment on above: Performed By: #### L AB113, LAB15, [id number], [id number] ####[employer] Architect: MARY SOTELO ([id number])[facility])[address] [place] [address] CO2 [Moles/Vol] 28 mmol/L Normal 22-30 [facility] Comment on above: Performed By: #### L AB113, LAB15, [id number], [id number] ####[employer] Architect: MARY SOTELO ([id number])[facility])[address] [place] [address] Creatinine [Mass/Vol] 2.98 mg/dL High 0.52-1.04 [facility] Comment on above: Performed By: #### L AB113, LAB15, [id number], [id number] ####[employer] Architect: MARY SOTELO ([id number])[facility])[address] [place] [address] GLOMERULAR FILTRATION RATE ML/MIN/1.73 SQ M.PREDICTED 17.0 mL/min/1.73m*2 Low >60.0 [facility] Comment on above: Result Comment: Calc ulation based on the Chronic Kidney Disease Epidemiology Collaboration (CKD-EPI) equation refit without adjustment for race Performed By: #### L AB113, LAB15, [id number], [id number] ####[employer] Architect: MARY SOTELO ([id number])[facility])[address] [place] [address] Glucose [Mass/Vol] 626 mg/dL Critically high 70-100 [facility] Comment on above: Performed By: #### L AB113, LAB15, [id number], [id number] ####[employer] Architect: MARY SOTELO ([id number])[facility])[address] [place] [address] Potassium [Moles/Vol] 4.4 mmol/L Normal 3.5-5.1 [facility] Comment on above: Performed By: #### L AB113, LAB15, [id number], [id number] ####[employer] Architect: MARY SOTELO ([id number])[facility])[address] [place] [address] Sodium [Moles/Vol] 126 mmol/L Low 135-145 [facility] Comment on above: Performed By: #### L AB113, LAB15, [id number], [id number] ####[employer] Architect: MARY SOTELO ([id number])[facility])[address] [place] [address] Urea nitrogen [Mass/Vol] 28 mg/dL High - [facility] Comment on above: Performed By: #### L AB113, LAB15, [id number], [id number] ####[employer] Architect: MARY SOTELO ([id number])[facility])[address] [place] [address] BETA HYDROXYBUTYRATEon 08-19 BETA HYDROXYBUTYRATE 7.01 mg/dL High 0.20-2.81 [facility] Comment on above: Performed By: #### L AB113, LAB15, [id number], [id number] ####[employer] Architect: MARY SOTELO ([id number])[facility])[address] [place] [address] Bacteria identified Cx Nom ( Bld)on 08-19-2024 Interpretation and review of laboratory results Normal [facility] Basic metabolic 1998 panelon 08-19-2024 Anion gap [Moles/Vol] 3 mmol/L 3 - 13 mmol/L [facility] Calcium [Mass/Vol] 7.4 mg/dL Low 8.4 - 10. 4 mg/dL [facility] Chloride [Moles/Vol] 95 mmol/L Low 98 - 10 7 mmol/L [facility] CO2 [Moles/Vol] 28 mmol/L 22 - 30 mmol/L [facility] Creatinine [Mass/Vol] 2.98 mg/dL High 0.52 - 1.04 mg/dL [facility] GFR/1.73 sq M.predicted (S/P/Bld) [Vol rate/Area] 17 mL/min Low - PINF [facility] Glucose [Mass/Vol] 626 mg/dL Critically high 70 - 1 00 mg/dL [facility] Interpretation and review of laboratory results Abnormal [facility] Potassium [Moles/Vol] 4.4 mmol/L 3.5 - 5.1 mmol/L [facility] Sodium [Moles/Vol] 126 mmol/L Low 135 - 145 mmol/L [facility] Urea nitrogen [Mass/Vol] 28 mg/dL High 7 - 17 mg/dL [facility] CALCIUM, IONIZEDon CALCIUM IONIZED 4.20 mg/dL Low 4.30-5.20 [facility] Comment on above: Performed By: #### L [id number] ####[employer] Architect: MARY SOTELO ([id number])[address] PH, IONIZED CALCIUM 7.21 Low 7.31-7.46 [facility] Comment on above: Performed By: #### L AB54 ####[employer] Architect: MARY SOTELO ([id number])[facility])[address] [place] [address] CBC W Auto Differential pane l (Bld)on 08-19-2024 Basophils (Bld) [#/Vol] 0 10*3/uL 0.0 - 0.2 10*3/uL [facility] Basophils/100 WBC (Bld) 0.3 % 0.0 - 2.0 % [facility] Eosinophils (Bld) [#/Vol] 0.1 10*3/uL 0.0 - 0.5 10*3/uL [facility] Eosinophils/100 WBC (Bld) 2.5 % 0.0 - 6.0 % [facility] Erythrocyte distribution width (RBC) [Ratio] 15.6 % High 11.5 - 15.0 % [facility] Hematocrit (Bld) [Volume fraction] 29.5 % Low 35.0 - 47.0 % [facility] Hemoglobin (Bld) [Mass/Vol] 9.3 g/dL Low 11.7 - 16.0 g/dL [facility] Immature granulocytes (Bld) [#/Vol] 0 10*3/uL NINF - 0.1 10*3/uL [facility] Immature granulocytes/100 WBC (Bld) 0.3 % 0.0 - 2.0 % [facility] Interpretation and review of laboratory results Abnormal [facility] Lymphocytes (Bld) [#/Vol] 0.6 10*3/uL Low 1.0 - 4.3 10*3/uL [facility] Lymphocytes/100 WBC (Bld) 14.8 % Low 15.0 - 45.0 % [facility] MCH (RBC) [Entitic mass] 29.3 pg 26.0 - 34.0 pg [facility] MCHC (RBC) [Mass/Vol] 31.5 % 30.5 - 36.0 % [facility] MCV (RBC) [Entitic vol] 93.1 fL 77.0 - 99.0 fL [facility] Monocytes (Bld) [#/Vol] 0.3 10*3/uL 0.0 - 0.9 10*3/uL [facility] Monocytes/100 WBC (Bld) 6.8 % 5.0 - 13.0 % [facility] Neutrophils (Bld) [#/Vol] 3 10*3/uL 1.8 - 7.5 10*3/uL [facility] Neutrophils/100 WBC (Bld) 75.3 % 38.0 - 82.0 % [facility] Nucleated RBC/100 WBC (Bld) [Ratio] 0 % [facility] Platelet mean volume (Bld) [Entitic vol] 10.6 fL 9.0 - 12.7 fL [facility] Platelets (Bld) [#/Vol] 114 10*3/uL Low 140 - 440 10*3/uL [facility] RBC (Bld) [#/Vol] 3.17 10*6/uL Low 3.80 - 5.2 0 10*6/uL [facility] WBC (Bld) [#/Vol] 4 10*3/uL 3.6 - 10.7 10*3/uL [facility] CBC WITH AUTO DIFFERENTIALon 08-19-2024 Basophils (Bld) [#/Vol] 0.0 10*3/uL Normal 0.0-0.2 [facility] Comment on above: Performed By: #### L [id number] ####[employer] Architect: MARY SOTELO ([id number])[facility])[address] [place] [address] Basophils/100 WBC (Bld) 0.3 % Normal 0.0-2.0 [facility] Comment on above: Performed By: #### L [id number] ####[employer] Architect: MARY SOTELO ([id number])[facility])[address] [place] [address] Eosinophils (Bld) [#/Vol] 0.1 10*3/uL Normal 0.0-0.5 [facility] Comment on above: Performed By: #### L [id number] ####[employer] Architect: MARY SOTELO ([id number])[facility])[address] [place] [address] Eosinophils/100 WBC (Bld) 2.5 % Normal 0.0-6.0 [facility] Comment on above: Performed By: #### L [id number] ####[employer] Architect: MARY SOTELO ([id number])[facility])[address] [place] [address] Erythrocyte distribution width (RBC) [Ratio] 15.6 % High 11.5-15.0 [facility] Comment on above: Performed By: #### L [id number] ####[employer] Architect: MARY SOTELO ([id number])[facility])[address] [place] [address] Hematocrit (Bld) [Volume fraction] 29.5 % Low 35.0-47.0 [facility] Comment on above: Performed By: #### L [id number] ####[employer] Architect: MARY SOTELO ([id number])[facility])[address] [place] [address] Hemoglobin (Bld) [Mass/Vol] 9.3 g/dL Low 11.7-16.0 [facility] Comment on above: Performed By: #### L [id number] ####[employer] Architect: MARY SOTELO ([id number])[facility])[address] [place] [address] IMMATURE GRANS % 0.3 % Normal 0.0-2.0 [facility] Comment on above: Performed By: #### L [id number] ####[employer] Architect: MARY SOTELO ([id number])[facility])[address] [place] [address] IMMATURE GRANS ABSOLUTE 0.0 10*3/uL Normal <0.1 [facility] Comment on above: Performed By: #### L [id number] ####[employer] Architect: MARY SOTELO ([id number])[facility])[address] [place] [address] Lymphocytes (Bld) [#/Vol] 0.6 10*3/uL Low 1.0-4.3 [facility] Comment on above: Performed By: #### L [id number] ####[employer] Architect: MARY SOTELO ([id number])[facility])[address] [place] [address] Lymphocytes/100 WBC (Bld) 14.8 % Low 15.0-45.0 [facility] Comment on above: Performed By: #### L [id number] ####[employer] Architect: MARY SOTELO ([id number])[facility])[address] [place] [address] MCH (RBC) [Entitic mass] 29.3 pg Normal 26.0-34.0 [facility] Comment on above: Performed By: #### L [id number] ####[employer] Architect: MARY SOTELO ([id number])[facility] ([facility])[address] [place] [address] MCHC 31.5 % Normal 30.5-36.0 [facility] Comment on above: Performed By: #### L [id number] ####[employer] Architect: MARY SOTELO ([id number])[facility])[address] [place] [address] MCV (RBC) [Entitic vol] 93.1 fL Normal 77.0-99.0 [facility] Comment on above: Performed By: #### L [id number] ####[employer] Architect: MARY SOTELO ([id number])[facility])[address] [place] [address] Monocytes (Bld) [#/Vol] 0.3 10*3/uL Normal 0.0-0.9 [facility] Comment on above: Performed By: #### L [id number] ####[employer] Architect: MARY SOTELO ([id number])[facility])[address] [place] [address] Monocytes/100 WBC (Bld) 6.8 % Normal 5.0-13.0 [facility] Comment on above: Performed By: #### L [id number] ####[employer] Architect: MARY SOTELO ([id number])[facility])[address] [place] [address] NEUTROPHILS ABSOLUTE 3.0 10*3/uL Normal 1.8-7.5 [facility] Comment on above: Performed By: #### L [id number] ####[employer] Architect: MARY SOTELO ([id number])[facility])[address] [place] [address] Neutrophils/100 WBC (Bld) 75.3 % Normal 38.0-82.0 [facility] Comment on above: Performed By: #### L [id number] ####[employer] Architect: MARY SOTELO ([id number])[facility])[address] [place] [address] NRBC 0.0 /100 WBCs Normal 0.0-2.0 [facility] Comment on above: Performed By: #### L [id number] ####[employer] Architect: MARY SOTELO ([id number])[facility])[address] [place] [address] Platelet mean volume (Bld) [Entitic vol] 10.6 fL Normal 9.0-12.7 [facility] Comment on above: Performed By: #### L [id number] ####[employer] Architect: MARY SOTELO ([id number])[facility])[address] [place] [address] Platelets (Bld) [#/Vol] 114 10*3/uL Low 140-440 [facility] Comment on above: Performed By: #### L [id number] ####[employer] Architect: MARY SOTELO ([id number])[facility])[address] [place] [address] RBC (Bld) [#/Vol] 3.17 10*6/uL Low 3.80-5.20 [facility] Comment on above: Performed By: #### L [id number] ####[employer] Architect: MARY SOTELO ([id number])[facility])[address] [place] [address] WBC (Bld) [#/Vol] 4.0 10*3/uL Normal 3.6-10.7 [facility] Comment on above: Performed By: #### L [id number] ####[employer] Architect: MARY SOTELO ([id number])[facility])[address] [place] [address] Calcium.ionized [Moles/Vol]O rdered By: Yoana Boyd on 08-19-2024 Calcium.ionized (Bld) [Moles/Vol] 4.2 mg/dL Low 4.30 - 5.20 mg/dL [facility] Interpretation and review of laboratory results Abnormal [facility] PH, IONIZED CALCIUM 7.21 Low 7.31 - 7.46 [facility] GLUCOSE, RANDOMon 08-19-2024 Glucose [Mass/Vol] 653 mg/dL Critically high 70-100 S [facility] Comment on above: Performed By: #### L [id number] ####[employer] Architect: MARY SOTELO ([id number])[facility])[address] [place] [address] Glucose (Bld) [Mass/Vol]on 1 Glucose [Mass/Vol] 653 mg/dL Critically high 70 - 1 00 mg/dL [facility] Interpretation and review of laboratory results Abnormal [facility] Laboratory - Chemistry and C hemistry - challengeon 08-19-2024 Glucose [Mass/Vol] 118 mg/dL High 70 - 100 mg/dL [facility] Glucose [Mass/Vol] 162 mg/dL High 70 - 100 mg/dL [facility] Glucose [Mass/Vol] 268 mg/dL High 70 - 100 mg/dL [facility] Glucose [Mass/Vol] 414 mg/dL High 70 - 100 mg/dL [facility] Glucose [Mass/Vol] mg/dL High 70 - 100 mg/dL [facility] Glucose [Mass/Vol] mg/dL High 70 - 100 mg/dL [facility] Glucose [Mass/Vol] mg/dL High 70 - 100 mg/dL [facility] Beta hydroxybutyrate [Mass/Vol] 7.01 mg/dL High 0.20 - 2.81 mg/dL [facility] Magnesium [Mass/Vol] 2 mg/dL 1.6 - 2 .3 mg/dL [facility] Glucose [Mass/Vol] mg/dL High 70 - 100 mg/dL [facility] Laboratory - Microbiology an d Antimicrobial susceptibilityon 08-19-2024 Bacteria identified Cx Nom (Bld) No growth at 5 days [facility] MAGNESIUMon 08-19-2024 Magnesium [Mass/Vol] 2.0 mg/dL Normal 1.6-2.3 [facility] Comment on above: Performed By: #### L AB113, LAB15, [id number], [id number] ####[employer] Architect: MARY SOTELO ([id number])[facility])[address] [place] [address] No Panel Informationon 08-19 Interpretation and review of laboratory results Abnormal [facility] Interpretation and review of laboratory results Abnormal [facility] Interpretation and review of laboratory results Abnormal [facility] Interpretation and review of laboratory results Abnormal [facility] Interpretation and review of laboratory results Abnormal [facility] Interpretation and review of laboratory results Abnormal [facility] Interpretation and review of laboratory results Abnormal [facility] Interpretation and review of laboratory results Abnormal [facility] Interpretation and review of laboratory results Normal [facility] Interpretation and review of laboratory results Abnormal [facility] Nursing Noteon 08-19-2024 Nursing Note Pt MBS for dinner wa s 162 orders for 8 scheduled H. Log and [address] Baires paged. Orders to give SSI and Hold scheduled 8 units if pt does not eat dinner. Pt did not want to eat dinner; 8 units held Normal [facility] Nursing Note Pt seemingly more confused and a little more lethargic than this morning. Med Team paged to make aware Normal [facility] Nursing Note Pt recheck MBS was 527. Dr. Bijan Jarrett paged to make aware Normal [facility] Nursing Note Pt MBS still reading HI. Med Team at bedside. Physician stated no need to draw confirmation, but to give 1 time 15 unit of R and recheck in one hour. Normal [facility] Nursing Note Dr. Bijan Jarrett paged wi th repeat glucose of 653 Normal [facility] Nursing Note Critical Care lab called with result of 626. Med Team A paged regarding. Normal [facility] PHOSPHORUSon 08-19-2024 Phosphate [Mass/Vol] 3.8 mg/dL Normal 2.5-4.5 [facility] Comment on above: Performed By: #### L AB113, LAB15, [id number], [id number] ####[employer] Architect: MARY SOTELO ([id number])[facility] ([address] Phosphate [Moles/Vol]on 08-03 Phosphate [Mass/Vol] 3.8 mg/dL 2.5 - 4 .5 mg/dL [facility] Progress Noteon 08-19-2024 Progress Note Normal [facility] Progress Note Normal [facility] Progress Note Normal [facility] Progress Note Normal [facility] BASIC METABOLIC PANELon 10-1 Anion gap [Moles/Vol] 4 mmol/L Normal 3-13 [facility] Comment on above: Performed By: #### L AB113, [id number], LAB15 ####[employer] Architect: MARY SOTELO ([id number])[facility])[address] [place] [address] Calcium [Mass/Vol] 7.9 mg/dL Low 8.4-10.4 [facility] Comment on above: Performed By: #### L AB113, [id number], LAB15 ####[employer] Architect: MARY SOTELO ([id number])[facility])[address] [place] [address] Chloride [Moles/Vol] 99 mmol/L Normal 98-107 [facility] Comment on above: Performed By: #### L AB113, [id number], LAB15 ####[employer] Architect: MARY SOTELO ([id number])[facility] [facility] [place] [address] [place] CO2 [Moles/Vol] 27 mmol/L Normal 22-30 [facility] Comment on above: Performed By: #### L AB113, [id number], LAB15 ####[employer] Architect: MARY SOTELO ([id number])[facility])[address] [place] [address] Creatinine [Mass/Vol] 3.57 mg/dL High 0.52-1.04 [facility] Comment on above: Performed By: #### L AB113, [id number], LAB15 ####[employer] Architect: MARY SOTELO ([id number])[facility])[address] [place] [address] [place] GLOMERULAR FILTRATION RATE ML/MIN/1.73 SQ M.PREDICTED 13.7 mL/min/1.73m*2 Low >60.0 [facility] Comment on above: Result Comment: Calc ulation based on the Chronic Kidney Disease Epidemiology Collaboration (CKD-EPI) equation refit without adjustment for race Performed By: #### L AB113, [id number], LAB15 ####[employer] Architect: MARY SOTELO ([id number])[facility])[address] [place] [address] Glucose [Mass/Vol] 281 mg/dL High 70-100 [facility] Comment on above: Performed By: #### L AB113, [id number], LAB15 ####Ob[employer]e [employer] Architect: MARY SOTELO ([id number])[facility])[address] [place] [address] Potassium [Moles/Vol] 3.8 mmol/L Normal 3.5-5.1 [facility] Comment on above: Performed By: #### L AB113, [id number], LAB15 ####Ob[employer]e [employer] Architect: MARY SOTELO ([id number])[facility])[address] [place] [address] Sodium [Moles/Vol] 130 mmol/L Low 135-145 [facility] Comment on above: Performed By: #### L AB113, [id number], LAB15 ####Obiee [employer] Architect: MARY SOTELO ([id number])[facility])[address] [place] [address] Urea nitrogen [Mass/Vol] 35 mg/dL High 7-17 [facility] Comment on above: Performed By: #### L AB113, [id number], LAB15 ####Ob[employer]e [employer] Architect: MARY SOTELO ([id number])[facility])[address] [place] [address] Basic metabolic 1998 panelon 08-18-2024 Anion gap [Moles/Vol] 4 mmol/L 3 - 13 mmol/L [facility] Calcium [Mass/Vol] 7.9 mg/dL Low 8.4 - 10. 4 mg/dL [facility] Chloride [Moles/Vol] 99 mmol/L 98 - 10 7 mmol/L [facility] CO2 [Moles/Vol] 27 mmol/L 22 - 30 mmol/L [facility] Creatinine [Mass/Vol] 3.57 mg/dL High 0.52 - 1.04 mg/dL [facility] GFR/1.73 sq M.predicted (S/P/Bld) [Vol rate/Area] 13.7 mL/min Low - PINF [facility] Glucose [Mass/Vol] 281 mg/dL High 70 - 100 mg/dL [facility] Interpretation and review of laboratory results Abnormal [facility] Potassium [Moles/Vol] 3.8 mmol/L 3.5 - 5.1 mmol/L [facility] Sodium [Moles/Vol] 130 mmol/L Low 135 - 145 mmol/L [facility] Urea nitrogen [Mass/Vol] 35 mg/dL High 7 - 17 mg/dL [facility] CALCIUM, IONIZEDon CALCIUM IONIZED 4.50 mg/dL Normal 4.30-5.20 [facility] Comment on above: Performed By: #### L [id number] ####Ob[employer]e [employer] Architect: MARY SOTELO ([id number])[address] PH, IONIZED CALCIUM 7.26 Low 7.31-7.46 [facility] Comment on above: Performed By: #### L [id number] ####Obiee [employer] Solution Architect: MARY SOTELO ([id number])[facility] ([address] CARECOORDon 08-18-2024 CARECOORD Normal [facility] CBC W Auto Differential pane l (Bld)on 08-18-2024 Basophils (Bld) [#/Vol] 0 10*3/uL 0.0 - 0.2 10*3/uL [facility] Basophils/100 WBC (Bld) 0.2 % 0.0 - 2.0 % [facility] Eosinophils (Bld) [#/Vol] 0.1 10*3/uL 0.0 - 0.5 10*3/uL [facility] Eosinophils/100 WBC (Bld) 2.9 % 0.0 - 6.0 % [facility] Erythrocyte distribution width (RBC) [Ratio] 15.7 % High 11.5 - 15.0 % [facility] Hematocrit (Bld) [Volume fraction] 29.1 % Low 35.0 - 47.0 % [facility] Hemoglobin (Bld) [Mass/Vol] 9.2 g/dL Low 11.7 - 16.0 g/dL [facility] Immature granulocytes (Bld) [#/Vol] 0 10*3/uL NINF - 0.1 10*3/uL [facility] Immature granulocytes/100 WBC (Bld) 0.7 % 0.0 - 2.0 % [facility] Interpretation and review of laboratory results Abnormal [facility] IPF 4 [facility] Lymphocytes (Bld) [#/Vol] 0.8 10*3/uL Low 1.0 - 4.3 10*3/uL [facility] Lymphocytes/100 WBC (Bld) 17.9 % 15.0 - 45.0 % [facility] MCH (RBC) [Entitic mass] 29.1 pg 26.0 - 34.0 pg [facility] MCHC (RBC) [Mass/Vol] 31.6 % 30.5 - 36.0 % [facility] MCV (RBC) [Entitic vol] 92.1 fL 77.0 - 99.0 fL [facility] Monocytes (Bld) [#/Vol] 0.4 10*3/uL 0.0 - 0.9 10*3/uL [facility] Monocytes/100 WBC (Bld) 7.8 % 5.0 - 13.0 % [facility] Neutrophils (Bld) [#/Vol] 3.2 10*3/uL 1.8 - 7.5 10*3/uL [facility] Neutrophils/100 WBC (Bld) 70.5 % 38.0 - 82.0 % [facility] Nucleated RBC/100 WBC (Bld) [Ratio] 0 % [facility] Platelet mean volume (Bld) [Entitic vol] 10.2 fL 9.0 - 12.7 fL [facility] Platelets (Bld) [#/Vol] 111 10*3/uL Low 140 - 440 10*3/uL [facility] RBC (Bld) [#/Vol] 3.16 10*6/uL Low 3.80 - 5.2 0 10*6/uL [facility] WBC (Bld) [#/Vol] 4.5 10*3/uL 3.6 - 10.7 10*3/uL [facility] CBC WITH AUTO DIFFERENTIALon 10-16-2024 Basophils (Bld) [#/Vol] 0.0 10*3/uL Normal 0.0-0.2 [facility] Comment on above: Performed By: #### L [id number] ####[employer] Architect: MARY SOTELO ([id number])[facility])[address] [place] [address] Basophils/100 WBC (Bld) 0.2 % Normal 0.0-2.0 [facility] Comment on above: Performed By: #### L [id number] ####Ob[employer]e [employer] Architect: MARY SOTELO ([id number])[facility])[address] [place] [address] Eosinophils (Bld) [#/Vol] 0.1 10*3/uL Normal 0.0-0.5 [facility] Comment on above: Performed By: #### L [id number] ####Ob[employer]e [employer] Architect: MARY SOTELO ([id number])[facility])[address] [place] [address] [place] Eosinophils/100 WBC (Bld) 2.9 % Normal 0.0-6.0 [facility] Comment on above: Performed By: #### L [id number] ####Ob[employer]e [employer] Architect: MARY SOTELO ([id number])[facility])[address] [place] [address] Erythrocyte distribution width (RBC) [Ratio] 15.7 % High 11.5-15.0 [facility] Comment on above: Performed By: #### L [id number] ####[employer] Architect: MARY SOTELO ([id number])[facility])[address] [place] [address] Hematocrit (Bld) [Volume fraction] 29.1 % Low 35.0-47.0 [facility] Comment on above: Performed By: #### L [id number] ####[employer] Architect: MARY SOTELO ([id number])[facility])[address] [place] [address] Hemoglobin (Bld) [Mass/Vol] 9.2 g/dL Low 11.7-16.0 [facility] Comment on above: Performed By: #### L [id number] ####Ob[employer] Architect: MARY SOTELO ([id number])[address] IMMATURE GRANS % 0.7 % Normal 0.0-2.0 [facility] Comment on above: Performed By: #### L [id number] ####Ob[employer]e [employer] Architect: MARY SOTELO ([id number])[facility])[address] [place] [address] IMMATURE GRANS ABSOLUTE 0.0 10*3/uL Normal <0.1 [facility] Comment on above: Performed By: #### L [id number] ####Ob[employer] Architect: MARY SOTELO ([id number])[address] IPF 4 Normal [facility] Comment on above: Performed By: #### L [id number] ####Ob[employer]e [employer] Architect: MARY SOTELO ([id number])[facility])[address] [place] [address] Lymphocytes (Bld) [#/Vol] 0.8 10*3/uL Low 1.0-4.3 [facility] Comment on above: Performed By: #### L [id number] ####Ob[employer] Architect: MARY SOTELO ([id number])[address] Lymphocytes/100 WBC (Bld) 17.9 % Normal 15.0-45.0 [facility] Comment on above: Performed By: #### L [id number] ####Ob[employer] Architect: MARY SOTELO ([id number])[address] MCH (RBC) [Entitic mass] 29.1 pg Normal 26.0-34.0 [facility] Comment on above: Performed By: #### L [id number] ####Ob[employer] Architect: MARY SOTELO ([id number])[address] [place] [address] [place] MCHC 31.6 % Normal 30.5-36.0 [facility] Comment on above: Performed By: #### L [id number] ####Obiee [employer] Architect: MARY SOTELO ([id number])[facility] ([facility])[address] [place] [address] MCV (RBC) [Entitic vol] 92.1 fL Normal 77.0-99.0 [facility] Comment on above: Performed By: #### L [id number] ####Ob[employer]e [employer] Architect: MARY SOTELO ([id number])[facility] ([facility])[address] [place] [address] Monocytes (Bld) [#/Vol] 0.4 10*3/uL Normal 0.0-0.9 [facility] Comment on above: Performed By: #### L [id number] ####Ob[employer]e [employer] Architect: MARY SOTELO ([id number])[facility] ([facility])[address] [place] [address] Monocytes/100 WBC (Bld) 7.8 % Normal 5.0-13.0 [facility] Comment on above: Performed By: #### L [id number] ####Ob[employer]e [employer] Architect: MARY SOTELO ([id number])[facility] ([facility])[address] [place] [address] NEUTROPHILS ABSOLUTE 3.2 10*3/uL Normal 1.8-7.5 [facility] Comment on above: Performed By: #### L [id number] ####Obiee [employer] Solution Architect: MARY SOTELO ([id number])[facility] ([facility])[address] [place] [address] Neutrophils/100 WBC (Bld) 70.5 % Normal 38.0-82.0 [facility] Comment on above: Performed By: #### L [id number] ####Ob[employer]e [employer] Architect: MARY SOTELO ([id number])[facility] ([facility])[address] [place] [address] [place] NRBC 0.0 /100 WBCs Normal 0.0-2.0 [facility] Comment on above: Performed By: #### L [id number] ####Ob[employer]e [employer] Architect: MARY SOTELO ([id number])[facility])[address] [place] [address] Platelet mean volume (Bld) [Entitic vol] 10.2 fL Normal 9.0-12.7 [facility] Comment on above: Performed By: #### L [id number] ####Ob[employer]e [employer] Solution Architect: MARY SOTELO ([id number])[facility] ([facility])[address] [place] [address] Platelets (Bld) [#/Vol] 111 10*3/uL Low 140-440 [facility] Comment on above: Performed By: #### L [id number] ####Ob[employer]e [employer] Solution Architect: MARY SOTELO ([id number])[facility] ([facility])[address] [place] [address] RBC (Bld) [#/Vol] 3.16 10*6/uL Low 3.80-5.20 [facility] Comment on above: Performed By: #### L [id number] ####Ob[employer]e [employer] Solution Architect: MARY SOTELO ([id number])[facility] ([facility])[address] [place] [address] WBC (Bld) [#/Vol] 4.5 10*3/uL Normal 3.6-10.7 [facility] Comment on above: Performed By: #### L [id number] ####Ob[employer]e [employer] Architect: MARY SOTELO ([id number])[facility])[address] [place] [address] Calcium.ionized [Moles/Vol]O rdered By: Elliott Macedo on 08-18-2024 Calcium.ionized (Bld) [Moles/Vol] 4.5 mg/dL 4.30 - 5.20 mg/dL [facility] Interpretation and review of laboratory results Abnormal [facility] PH, IONIZED CALCIUM 7.26 Low 7.31 - 7.46 [facility] IDNon 08-18-2024 IDN Normal [facility] Laboratory - Chemistry and C hemistry - challengeon 08-18-2024 Glucose [Mass/Vol] 297 mg/dL High 70 - 100 mg/dL [facility] Glucose [Mass/Vol] 325 mg/dL High 70 - 100 mg/dL [facility] Glucose [Mass/Vol] 181 mg/dL High 70 - 100 mg/dL [facility] Glucose [Mass/Vol] 187 mg/dL High 70 - 100 mg/dL [facility] Magnesium [Mass/Vol] 2 mg/dL 1.6 - 2 .3 mg/dL [facility] MAGNESIUMon 08-18-2024 Magnesium [Mass/Vol] 2.0 mg/dL Normal 1.6-2.3 [facility] Comment on above: Performed By: #### L [id number], [id number], LAB15 ####Ob[employer]e [employer] Solution Architect: MARY SOTELO ([id number])[facility])[address] [place] [address] No Panel Informationon 08-18 Interpretation and review of laboratory results Abnormal [facility] Interpretation and review of laboratory results Abnormal [facility] Interpretation and review of laboratory results Abnormal [facility] Interpretation and review of laboratory results Abnormal [facility] Interpretation and review of laboratory results Normal [facility] Nursing Noteon 08-18-2024 Nursing Note Normal [facility] PHOSPHORUSon 08-18-2024 Phosphate [Mass/Vol] 3.4 mg/dL Normal 2.5-4.5 [facility] Comment on above: Performed By: #### L AB113, [id number], LAB15 ####Ob[employer]e [employer] Architect: MARY SOTELO ([id number])[facility] ([facility])[address] [place] [address] Phosphate [Moles/Vol]on 08-03 Phosphate [Mass/Vol] 3.4 mg/dL 2.5 - 4 .5 mg/dL [facility] Progress Noteon 08-18-2024 Progress Note Normal [facility] Progress Note Normal [facility] Progress Note Normal [facility] Progress Note Normal [facility] BASIC METABOLIC PANELon 08-03 Anion gap [Moles/Vol] 5 mmol/L Normal 3-13 [facility] Comment on above: Performed By: #### L AB103, [id number], LAB15 ####Obiee [employer] Architect: MARY SOTELO ([id number])[facility] ([facility])[address] [place] [address] Calcium [Mass/Vol] 7.0 mg/dL Low 8.4-10.4 [facility] Comment on above: Performed By: #### Dora AB103, [id number], LAB15 ####Ob[employer]e [employer] Architect: MARY SOTELO ([id number])[facility] [place] [address] Chloride [Moles/Vol] 100 mmol/L Normal 98-107 [facility] Comment on above: Performed By: #### Dora AB103, [id number], LAB15 ####Ob[employer] Architect: MARY SOTELO ([id number])[facility] [place] [address] CO2 [Moles/Vol] 28 mmol/L Normal 22-30 [facility] Comment on above: Performed By: #### Dora AB103, [id number], LAB15 ####Obiee [employer] Architect: MARY SOTELO ([id number])[facility] ([facility])[address] [place] [address] Creatinine [Mass/Vol] 2.31 mg/dL High 0.52-1.04 [facility] Comment on above: Performed By: #### Dora AB103, [id number], LAB15 ####Ob[employer]e [employer] Architect: MARY SOTELO ([id number])[facility] ([facility])[address] [place] [address] GLOMERULAR FILTRATION RATE ML/MIN/1.73 SQ M.PREDICTED 23.1 mL/min/1.73m*2 Low >60.0 [facility] Comment on above: Result Comment: Calc ulation based on the Chronic Kidney Disease Epidemiology Collaboration (CKD-EPI) equation refit without adjustment for race Performed By: #### L AB103, [id number], LAB15 ####[employer] Architect: MARY SOTELO ([id number])[facility] [place] [address] Glucose [Mass/Vol] 152 mg/dL High 70-100 [facility] Comment on above: Performed By: #### L AB103, [id number], LAB15 ####Ob[employer]e [employer] Architect: MARY SOTELO ([id number])[facility] ([facility])[address] [place] [address] Potassium [Moles/Vol] 3.6 mmol/L Normal 3.5-5.1 [facility] Comment on above: Performed By: #### L AB103, [id number], LAB15 ####Ob[employer]e [employer] Architect: MARY SOTELO ([id number])[facility] ([facility])[address] [place] [address] Sodium [Moles/Vol] 132 mmol/L Low 135-145 [facility] Comment on above: Performed By: #### L AB103, [id number], LAB15 ####Ob[employer] Architect: MARY SOTELO ([id number])[facility] [place] [address] Urea nitrogen [Mass/Vol] 21 mg/dL High 7-17 [facility] Comment on above: Performed By: #### L AB103, [id number], LAB15 ####[employer] Architect: MARY SOTELO ([id number])[facility] ([facility])[address] [place] [address] Bacteria identified Cx Nom ( Bld)on 08-17-2024 Interpretation and review of laboratory results Normal [facility] Basic metabolic 1998 panelon 08-17-2024 Anion gap [Moles/Vol] 5 mmol/L 3 - 13 mmol/L [facility] Calcium [Mass/Vol] 7 mg/dL Low 8.4 - 10. 4 mg/dL [facility] Chloride [Moles/Vol] 100 mmol/L 98 - 10 7 mmol/L [facility] CO2 [Moles/Vol] 28 mmol/L 22 - 30 mmol/L [facility] Creatinine [Mass/Vol] 2.31 mg/dL High 0.52 - 1.04 mg/dL [facility] GFR/1.73 sq M.predicted (S/P/Bld) [Vol rate/Area] 23.1 mL/min Low - PINF [facility] Glucose [Mass/Vol] 152 mg/dL High 70 - 100 mg/dL [facility] Interpretation and review of laboratory results Abnormal [facility] Potassium [Moles/Vol] 3.6 mmol/L 3.5 - 5.1 mmol/L [facility] Sodium [Moles/Vol] 132 mmol/L Low 135 - 145 mmol/L [facility] Urea nitrogen [Mass/Vol] 21 mg/dL High 7 - 17 mg/dL [facility] CALCIUM, IONIZEDon CALCIUM IONIZED 3.80 mg/dL Low 4.30-5.20 [facility] Comment on above: Performed By: #### L [id number] ####[employer] Architect: MARY SOTELO ([id number])[facility] [place] [address] PH, IONIZED CALCIUM 7.39 Normal 7.31-7.46 [facility] Comment on above: Performed By: #### L AB54 ####Ob[employer] Architect: MARY SOTELO ([id number])[facility] ([facility])[address] [place] [address] CARECOORDon 08-17-2024 CAR[place]OORD Normal [facility] CBC W Auto Differential pane l (Bld)on 08-17-2024 Basophils (Bld) [#/Vol] 0 10*3/uL 0.0 - 0.2 10*3/uL [facility] Basophils/100 WBC (Bld) 0.2 % 0.0 - 2.0 % [facility] Eosinophils (Bld) [#/Vol] 0.1 10*3/uL 0.0 - 0.5 10*3/uL [facility] Eosinophils/100 WBC (Bld) 2.6 % 0.0 - 6.0 % [facility] Erythrocyte distribution width (RBC) [Ratio] 15.8 % High 11.5 - 15.0 % [facility] Hematocrit (Bld) [Volume fraction] 28.7 % Low 35.0 - 47.0 % [facility] Hemoglobin (Bld) [Mass/Vol] 9.1 g/dL Low 11.7 - 16.0 g/dL [facility] Immature granulocytes (Bld) [#/Vol] 0 10*3/uL NINF - 0.1 10*3/uL [facility] Immature granulocytes/100 WBC (Bld) 0.4 % 0.0 - 2.0 % [facility] Interpretation and review of laboratory results Abnormal [facility] IPF 4 [facility] Lymphocytes (Bld) [#/Vol] 0.7 10*3/uL Low 1.0 - 4.3 10*3/uL [facility] Lymphocytes/100 WBC (Bld) 15.7 % 15.0 - 45.0 % [facility] MCH (RBC) [Entitic mass] 29.1 pg 26.0 - 34.0 pg [facility] MCHC (RBC) [Mass/Vol] 31.7 % 30.5 - 36.0 % [facility] MCV (RBC) [Entitic vol] 91.7 fL 77.0 - 99.0 fL [facility] Monocytes (Bld) [#/Vol] 0.3 10*3/uL 0.0 - 0.9 10*3/uL [facility] Monocytes/100 WBC (Bld) 6.8 % 5.0 - 13.0 % [facility] Neutrophils (Bld) [#/Vol] 3.4 10*3/uL 1.8 - 7.5 10*3/uL [facility] Neutrophils/100 WBC (Bld) 74.3 % 38.0 - 82.0 % [facility] Nucleated RBC/100 WBC (Bld) [Ratio] 0 % [facility] Platelet mean volume (Bld) [Entitic vol] 10.7 fL 9.0 - 12.7 fL [facility] Platelets (Bld) [#/Vol] 105 10*3/uL Low 140 - 440 10*3/uL [facility] RBC (Bld) [#/Vol] 3.13 10*6/uL Low 3.80 - 5.2 0 10*6/uL [facility] WBC (Bld) [#/Vol] 4.5 10*3/uL 3.6 - 10.7 10*3/uL [facility] CBC WITH AUTO DIFFERENTIALon 08-17-2024 Basophils (Bld) [#/Vol] 0.0 10*3/uL Normal 0.0-0.2 [facility] Comment on above: Performed By: #### L [id number] ####[employer] Architect: MARY SOTELO ([id number])[address] Basophils/100 WBC (Bld) 0.2 % Normal 0.0-2.0 [facility] Comment on above: Performed By: #### L [id number] ####[employer] Architect: MARY SOTELO ([id number])[facility])[address] [place] [address] Eosinophils (Bld) [#/Vol] 0.1 10*3/uL Normal 0.0-0.5 [facility] Comment on above: Performed By: #### L [id number] ####[employer] Architect: MARY SOTELO ([id number])[address] Eosinophils/100 WBC (Bld) 2.6 % Normal 0.0-6.0 [facility] Comment on above: Performed By: #### L [id number] ####[employer] Architect: MARY SOTELO ([id number])[address] Erythrocyte distribution width (RBC) [Ratio] 15.8 % High 11.5-15.0 [facility] Comment on above: Performed By: #### L [id number] ####[employer] Architect: MARY SOTELO ([id number])[address] Hematocrit (Bld) [Volume fraction] 28.7 % Low 35.0-47.0 [facility] Comment on above: Performed By: #### L [id number] ####[employer] Architect: MARY SOTELO ([id number])[address] Hemoglobin (Bld) [Mass/Vol] 9.1 g/dL Low 11.7-16.0 [facility] Comment on above: Performed By: #### L [id number] ####[employer] Architect: MARY SOTELO ([id number])[facility])[address] [place] [address] IMMATURE GRANS % 0.4 % Normal 0.0-2.0 [facility] Comment on above: Performed By: #### L [id number] ####[employer] Architect: MARY SOTELO ([id number])[facility])[address] [place] [address] IMMATURE GRANS ABSOLUTE 0.0 10*3/uL Normal <0.1 [facility] Comment on above: Performed By: #### L [id number] ####[employer] Architect: MARY SOTELO ([id number])[address] IPF 4 Normal [facility] Comment on above: Performed By: #### L [id number] ####[employer] Architect: MARY SOTELO ([id number])[facility])[address] [place] [address] Lymphocytes (Bld) [#/Vol] 0.7 10*3/uL Low 1.0-4.3 [facility] Comment on above: Performed By: #### L [id number] ####[employer] Architect: MARY SOTELO ([id number])[address] Lymphocytes/100 WBC (Bld) 15.7 % Normal 15.0-45.0 [facility] Comment on above: Performed By: #### L [id number] ####[employer] Architect: MARY SOTELO ([id number])[facility])[address] [place] [address] MCH (RBC) [Entitic mass] 29.1 pg Normal 26.0-34.0 [facility] Comment on above: Performed By: #### L [id number] ####[employer] Architect: MARY SOTELO ([id number])[facility])[address] [place] [address] MCHC 31.7 % Normal 30.5-36.0 [facility] Comment on above: Performed By: #### L [id number] ####[employer] Architect: MARY SOTELO ([id number])[facility])[address] [place] [address] MCV (RBC) [Entitic vol] 91.7 fL Normal 77.0-99.0 [facility] Comment on above: Performed By: #### L [id number] ####[employer] Architect: MARY SOTELO ([id number])[facility])[address] [place] [address] Monocytes (Bld) [#/Vol] 0.3 10*3/uL Normal 0.0-0.9 [facility] Comment on above: Performed By: #### L [id number] ####[employer] Architect: MARY SOTELO ([id number])[facility])[address] [place] [address] Monocytes/100 WBC (Bld) 6.8 % Normal 5.0-13.0 [facility] Comment on above: Performed By: #### L [id number] ####[employer] Architect: MARY SOTELO ([id number])[facility])[address] [place] [address] NEUTROPHILS ABSOLUTE 3.4 10*3/uL Normal 1.8-7.5 [facility] Comment on above: Performed By: #### L [id number] ####[employer] Architect: MARY SOTELO ([id number])[facility])[address] [place] [address] Neutrophils/100 WBC (Bld) 74.3 % Normal 38.0-82.0 [facility] Comment on above: Performed By: #### L [id number] ####Obiee [employer] Architect: MARY SOTELO ([id number])[facility])[address] [place] [address] NRBC 0.0 /100 WBCs Normal 0.0-2.0 [facility] Comment on above: Performed By: #### L [id number] ####Obiee [employer] Architect: MARY SOTELO ([id number])[facility])[address] [place] [address] Platelet mean volume (Bld) [Entitic vol] 10.7 fL Normal 9.0-12.7 [facility] Comment on above: Performed By: #### L [id number] ####Ob[employer]e [employer] Architect: MARY SOTEOL ([id number])[facility])[address] [place] [address] Platelets (Bld) [#/Vol] 105 10*3/uL Low 140-440 [facility] Comment on above: Performed By: #### L [id number] ####Ob[employer]e [employer] Architect: MARY SOTELO ([id number])[facility])[address] [place] [address] RBC (Bld) [#/Vol] 3.13 10*6/uL Low 3.80-5.20 [facility] Comment on above: Performed By: #### L [id number] ####Ob[employer]e [employer] Architect: MARY SOTELO ([id number])[facility])[address] [place] [address] WBC (Bld) [#/Vol] 4.5 10*3/uL Normal 3.6-10.7 [facility] Comment on above: Performed By: #### L [id number] ####Ob[employer]e [employer] Architect: MARY SOTELO ([id number])[facility])[address] [place] [address] Calcium.ionized [Moles/Vol]o n 08-17-2024 Calcium.ionized (Bld) [Moles/Vol] 3.8 mg/dL Low 4.30 - 5.20 mg/dL [facility] Interpretation and review of laboratory results Abnormal [facility] PH, IONIZED CALCIUM 7.39 7.31 - 7.46 [facility] IDNon 08-17-2024 IDN Normal [facility] Laboratory - Chemistry and C hemistry - challengeon 08-17-2024 Glucose [Mass/Vol] 178 mg/dL High 70 - 100 mg/dL [facility] Glucose [Mass/Vol] 112 mg/dL High 70 - 100 mg/dL [facility] Glucose [Mass/Vol] 213 mg/dL High 70 - 100 mg/dL [facility] Glucose [Mass/Vol] 286 mg/dL High 70 - 100 mg/dL [facility] Magnesium [Mass/Vol] 2 mg/dL 1.6 - 2 .3 mg/dL [facility] Laboratory - Microbiology an d Antimicrobial susceptibilityon 08-17-2024 Bacteria identified Cx Nom (Bld) No growth at 5 days [facility] MAGNESIUMon 08-17-2024 Magnesium [Mass/Vol] 2.0 mg/dL Normal 1.6-2.3 [facility] Comment on above: Performed By: #### L [id number], [id number], LAB15 ####Ob[employer]e [employer] Architect: MARY SOTELO ([id number])[facility])[address] [place] [address] No Panel Informationon 08-17 Interpretation and review of laboratory results Abnormal [facility] Interpretation and review of laboratory results Abnormal [facility] Interpretation and review of laboratory results Abnormal [facility] Interpretation and review of laboratory results Abnormal [facility] Interpretation and review of laboratory results Normal [facility] PHOSPHORUSon 08-17-2024 Phosphate [Mass/Vol] 2.8 mg/dL Normal 2.5-4.5 [facility] Comment on above: Performed By: #### L AB103, [id number], LAB15 ####Ob[employer]e [employer] Architect: MARY SOTELO ([id number])[facility])[address] [place] [address] Phosphate [Moles/Vol]on 08-03 Phosphate [Mass/Vol] 2.8 mg/dL 2.5 - 4 .5 mg/dL [facility] Progress Noteon 08-17-2024 Progress Note Normal [facility] Progress Note Normal [facility] Progress Note Normal [facility] Progress Note Normal [facility] BASIC METABOLIC PANELon 08-03 Anion gap [Moles/Vol] 6 mmol/L Normal 3-13 [facility] Comment on above: Performed By: #### L AB103, [id number], LAB15 ####Ob[employer]e [employer] Architect: MARY SOTELO ([id number])[facility])[address] [place] [address] Calcium [Mass/Vol] 7.2 mg/dL Low 8.4-10.4 [facility] Comment on above: Performed By: #### L AB103, [id number], LAB15 ####Obiee [employer] Architect: MARY SOTELO ([id number])[facility] [place] [address] Chloride [Moles/Vol] 98 mmol/L Normal 98-107 [facility] Comment on above: Performed By: #### Dora AB103, [id number], LAB15 ####Ob[employer]e [employer] Architect: MARY SOTELO ([id number])[facility])[address] [place] [address] CO2 [Moles/Vol] 27 mmol/L Normal 22-30 [facility] Comment on above: Performed By: #### Dora AB103, [id number], LAB15 ####Ob[employer]e [employer] Architect: MARY SOTELO ([id number])[facility])[address] [place] [address] Creatinine [Mass/Vol] 3.90 mg/dL High 0.52-1.04 [facility] Comment on above: Performed By: #### L AB103, [id number], LAB15 ####Obiee [employer] Architect: MARY SOTELO ([id number])[facility])[address] [place] [address] GLOMERULAR FILTRATION RATE ML/MIN/1.73 SQ M.PREDICTED 12.3 mL/min/1.73m*2 Low >60.0 [facility] Comment on above: Result Comment: Calc ulation based on the Chronic Kidney Disease Epidemiology Collaboration (CKD-EPI) equation refit without adjustment for race Performed By: #### L AB103, [id number], LAB15 ####Ob[employer]e [employer] Architect: MARY SOTELO ([id number])[facility])[address] Glucose [Mass/Vol] 362 mg/dL High 70-100 [facility] Comment on above: Performed By: #### L AB103, [id number], LAB15 ####Ob[employer]e [employer] Architect: MARY SOTELO ([id number])[facility])[address] [place] [address] Potassium [Moles/Vol] 4.1 mmol/L Normal 3.5-5.1 [facility] Comment on above: Performed By: #### L AB103, [id number], LAB15 ####Ob[employer]e [employer] Architect: MARY SOTELO ([id number])[facility])[address] [place] [address] Sodium [Moles/Vol] 131 mmol/L Low 135-145 [facility] Comment on above: Performed By: #### L AB103, [id number], LAB15 ####Ob[employer]e [employer] Architect: MARY SOTELO ([id number])[facility])[address] [place] [address] Urea nitrogen [Mass/Vol] 38 mg/dL High 7-17 [facility] Comment on above: Performed By: #### L AB103, [id number], LAB15 ####Ob[employer]e [employer] Architect: MARY SOTELO ([id number])[facility])[address] [place] [address] Bacteria identified Cx Nom ( U)Ordered By: Matilde Ronquillo on 08-16-2024 Interpretation and review of laboratory results Abnormal [facility] Basic metabolic 1998 panelon 08-16-2024 Anion gap [Moles/Vol] 6 mmol/L 3 - 13 mmol/L [facility] Calcium [Mass/Vol] 7.2 mg/dL Low 8.4 - 10. 4 mg/dL [facility] Chloride [Moles/Vol] 98 mmol/L 98 - 10 7 mmol/L [facility] CO2 [Moles/Vol] 27 mmol/L 22 - 30 mmol/L [facility] Creatinine [Mass/Vol] 3.9 mg/dL High 0.52 - 1.04 mg/dL [facility] GFR/1.73 sq M.predicted (S/P/Bld) [Vol rate/Area] 12.3 mL/min Low - PINF [facility] Glucose [Mass/Vol] 362 mg/dL High 70 - 100 mg/dL [facility] Interpretation and review of laboratory results Abnormal [facility] Potassium [Moles/Vol] 4.1 mmol/L 3.5 - 5.1 mmol/L [facility] Sodium [Moles/Vol] 131 mmol/L Low 135 - 145 mmol/L [facility] Urea nitrogen [Mass/Vol] 38 mg/dL High 7 - 17 mg/dL [facility] CALCIUM, IONIZEDon CALCIUM IONIZED 4.20 mg/dL Low 4.30-5.20 [facility] Comment on above: Performed By: #### L [id number] ####Obiee [employer] Architect: MARY SOTELO ([id number])[facility])[address] [place] [address] PH, IONIZED CALCIUM 7.16 Low 7.31-7.46 [facility] Comment on above: Performed By: #### L AB54 ####Obiee [employer] Architect: MARY SOTELO ([id number])[facility])[address] [place] [address] CARECOORDon 08-16-2024 CARECOORD Normal [facility] CBC W Auto Differential pane l (Bld)on 08-16-2024 Basophils (Bld) [#/Vol] 0 10*3/uL 0.0 - 0.2 10*3/uL [facility] Basophils/100 WBC (Bld) 0.2 % 0.0 - 2.0 % [facility] Eosinophils (Bld) [#/Vol] 0 10*3/uL 0.0 - 0.5 10*3/uL [facility] Eosinophils/100 WBC (Bld) 0.4 % 0.0 - 6.0 % [facility] Erythrocyte distribution width (RBC) [Ratio] 15.8 % High 11.5 - 15.0 % [facility] Hematocrit (Bld) [Volume fraction] 30 % Low 35.0 - 47.0 % [facility] Hemoglobin (Bld) [Mass/Vol] 9.7 g/dL Low 11.7 - 16.0 g/dL [facility] Immature granulocytes (Bld) [#/Vol] 0 10*3/uL NINF - 0.1 10*3/uL [facility] Immature granulocytes/100 WBC (Bld) 0.6 % 0.0 - 2.0 % [facility] Interpretation and review of laboratory results Abnormal [facility] Lymphocytes (Bld) [#/Vol] 0.5 10*3/uL Low 1.0 - 4.3 10*3/uL [facility] Lymphocytes/100 WBC (Bld) 10.1 % Low 15.0 - 45.0 % [facility] MCH (RBC) [Entitic mass] 29.6 pg 26.0 - 34.0 pg [facility] MCHC (RBC) [Mass/Vol] 32.3 % 30.5 - 36.0 % [facility] MCV (RBC) [Entitic vol] 91.5 fL 77.0 - 99.0 fL [facility] Monocytes (Bld) [#/Vol] 0.3 10*3/uL 0.0 - 0.9 10*3/uL [facility] Monocytes/100 WBC (Bld) 6.9 % 5.0 - 13.0 % [facility] Neutrophils (Bld) [#/Vol] 3.9 10*3/uL 1.8 - 7.5 10*3/uL [facility] Neutrophils/100 WBC (Bld) 81.8 % 38.0 - 82.0 % [facility] Nucleated RBC/100 WBC (Bld) [Ratio] 0 % [facility] Platelet mean volume (Bld) [Entitic vol] 10.2 fL 9.0 - 12.7 fL [facility] Platelets (Bld) [#/Vol] 104 10*3/uL Low 140 - 440 10*3/uL [facility] RBC (Bld) [#/Vol] 3.28 10*6/uL Low 3.80 - 5.2 0 10*6/uL [facility] WBC (Bld) [#/Vol] 4.8 10*3/uL 3.6 - 10.7 10*3/uL [facility] CBC WITH AUTO DIFFERENTIALon 08-16-2024 Basophils (Bld) [#/Vol] 0.0 10*3/uL Normal 0.0-0.2 [facility] Comment on above: Performed By: #### L [id number] ####[employer] Architect: MARY SOTELO ([id number])[facility])[address] [place] [address] Basophils/100 WBC (Bld) 0.2 % Normal 0.0-2.0 [facility] Comment on above: Performed By: #### L [id number] ####Ob[employer] Architect: MARY SOTELO ([id number])[facility])[address] [place] [address] Eosinophils (Bld) [#/Vol] 0.0 10*3/uL Normal 0.0-0.5 [facility] Comment on above: Performed By: #### L [id number] ####Ob[employer] Architect: MARY SOTELO ([id number])[address] Eosinophils/100 WBC (Bld) 0.4 % Normal 0.0-6.0 [facility] Comment on above: Performed By: #### L [id number] ####[employer] Architect: MARY SOTELO ([id number])[facility])[address] [place] [address] Erythrocyte distribution width (RBC) [Ratio] 15.8 % High 11.5-15.0 [facility] Comment on above: Performed By: #### L [id number] ####Ob[employer] Architect: MARY SOTELO ([id number])[address] Hematocrit (Bld) [Volume fraction] 30.0 % Low 35.0-47.0 [facility] Comment on above: Performed By: #### L [id number] ####[employer] Architect: MARY SOTELO ([id number])[address] Hemoglobin (Bld) [Mass/Vol] 9.7 g/dL Low 11.7-16.0 [facility] Comment on above: Performed By: #### L [id number] ####Obiee [employer] Solution Architect: MARY [id number])[facility])[address] [place] [address] IMMATURE GRANS % 0.6 % Normal 0.0-2.0 [facility] Comment on above: Performed By: #### L [id number] ####Ob[employer]e [employer] Architect: MARY SOTELO ([id number])[facility])[address] [place] [address] IMMATURE GRANS ABSOLUTE 0.0 10*3/uL Normal <0.1 [facility] Comment on above: Performed By: #### L [id number] ####Ob[employer]e [employer] Architect: MARY SOTELO ([id number])[facility])[address] [place] [address] Lymphocytes (Bld) [#/Vol] 0.5 10*3/uL Low 1.0-4.3 [facility] Comment on above: Performed By: #### L [id number] ####Ob[employer]e [employer] Architect: MARY SOTELO ([id number])[facility])[address] [place] [address] Lymphocytes/100 WBC (Bld) 10.1 % Low 15.0-45.0 [facility] Comment on above: Performed By: #### L [id number] ####Ob[employer]e [employer] Architect: MARY SOTELO ([id number])[facility])[address] [place] [address] MCH (RBC) [Entitic mass] 29.6 pg Normal 26.0-34.0 [facility] Comment on above: Performed By: #### L [id number] ####Ob[employer]e [employer] Architect: MARY SOTELO ([id number])[facility])[address] [place] [address] MCHC 32.3 % Normal 30.5-36.0 [facility] Comment on above: Performed By: #### L [id number] ####Ob[employer]e [employer] Architect: MARY SOTELO ([id number])[facility])[address] [place] [address] MCV (RBC) [Entitic vol] 91.5 fL Normal 77.0-99.0 [facility] Comment on above: Performed By: #### L [id number] ####Ob[employer] Architect: MARY SOTELO ([id number])[facility])[address] [place] [address] Monocytes (Bld) [#/Vol] 0.3 10*3/uL Normal 0.0-0.9 [facility] Comment on above: Performed By: #### L [id number] ####Ob[employer]e [employer] Architect: MARY SOTELO ([id number])[facility])[address] [place] [address] Monocytes/100 WBC (Bld) 6.9 % Normal 5.0-13.0 [facility] Comment on above: Performed By: #### L [id number] ####Ob[employer] Architect: MARY SOTELO ([id number])[facility])[address] [place] [address] NEUTROPHILS ABSOLUTE 3.9 10*3/uL Normal 1.8-7.5 [facility] Comment on above: Performed By: #### L [id number] ####Ob[employer]e [employer] Architect: MARY SOTELO ([id number])[facility])[address] [place] [address] Neutrophils/100 WBC (Bld) 81.8 % Normal 38.0-82.0 [facility] Comment on above: Performed By: #### L [id number] ####Ob[employer]e [employer] Architect: MARY SOTELO ([id number])[facility])[address] [place] [address] NRBC 0.0 /100 WBCs Normal 0.0-2.0 [facility] Comment on above: Performed By: #### L [id number] ####Obiee [employer] Architect: MARY SOTELO ([id number])[facility])[address] [place] [address] Platelet mean volume (Bld) [Entitic vol] 10.2 fL Normal 9.0-12.7 [facility] Comment on above: Performed By: #### L [id number] ####Ob[employer]e [employer] Architect: MARY SOTELO ([id number])[facility])[address] [place] [address] Platelets (Bld) [#/Vol] 104 10*3/uL Low 140-440 [facility] Comment on above: Performed By: #### L [id number] ####Ob[employer] Architect: MARY SOTELO ([id number])[facility])[address] [place] [address] RBC (Bld) [#/Vol] 3.28 10*6/uL Low 3.80-5.20 [facility] Comment on above: Performed By: #### L [id number] ####Ob[employer]e [employer] Architect: MARY SOTELO ([id number])[facility])[address] [place] [address] WBC (Bld) [#/Vol] 4.8 10*3/uL Normal 3.6-10.7 [facility] Comment on above: Performed By: #### L [id number] ####Ob[employer]e [employer] Architect: MARY SOTELO ([id number])[facility])[address] [place] [address] Calcium.ionized [Moles/Vol]o n 08-16-2024 Calcium.ionized (Bld) [Moles/Vol] 4.2 mg/dL Low 4.30 - 5.20 mg/dL [facility] Interpretation and review of laboratory results Abnormal [facility] PH, IONIZED CALCIUM 7.16 Low 7.31 - 7.46 [facility] IDNon 08-16-2024 IDN Normal [facility] Laboratory - Chemistry and C hemistry - challengeon 08-16-2024 Glucose [Mass/Vol] 174 mg/dL High 70 - 100 mg/dL [facility] Glucose [Mass/Vol] 163 mg/dL High 70 - 100 mg/dL [facility] Glucose [Mass/Vol] 350 mg/dL High 70 - 100 mg/dL [facility] Glucose [Mass/Vol] 405 mg/dL High 70 - 100 mg/dL [facility] Magnesium [Mass/Vol] 2.2 mg/dL 1.6 - 2 .3 mg/dL [facility] Laboratory - Microbiology an d Antimicrobial susceptibilityOrdered By: Matilde Ronquillo on 08-16-2024 Bacteria identified Cx Nom (U) >100,000 CFU/mL Abbi albicans Abnormal [facility] MAGNESIUMon 08-16-2024 Magnesium [Mass/Vol] 2.2 mg/dL Normal 1.6-2.3 [facility] Comment on above: Performed By: #### L AB103, [id number], LAB15 ####[employer] Architect: MARY SOTELO ([id number])[facility])[address] [place] [address] No Panel Informationon 08-16 Interpretation and review of laboratory results Abnormal [facility] Interpretation and review of laboratory results Abnormal [facility] Interpretation and review of laboratory results Abnormal [facility] Interpretation and review of laboratory results Abnormal [facility] Interpretation and review of laboratory results Normal [facility] Nursing Noteon 08-16-2024 Nursing Note Normal [facility] PHOSPHORUSon 08-16-2024 Phosphate [Mass/Vol] 4.5 mg/dL Normal 2.5-4.5 [facility] Comment on above: Performed By: #### L AB103, [id number], LAB15 ####[employer] Architect: MARY SOTELO ([id number])[facility])[address] [place] [address] Phosphate [Moles/Vol]on 08-03 Phosphate [Mass/Vol] 4.5 mg/dL 2.5 - 4 .5 mg/dL [facility] Progress Noteon 08-16-2024 Progress Note Normal [facility] Progress Note Normal [facility] Progress Note Normal [facility] Progress Note Normal [facility] BASIC METABOLIC PANELon 08-03 Anion gap [Moles/Vol] 8 mmol/L Normal 3-13 [facility] Comment on above: Performed By: #### L AB113, [id number], LAB15 ####[employer]e [employer] Architect: MARY SOTELO ([id number])[facility])[address] [place] [address] [place] Calcium [Mass/Vol] 7.1 mg/dL Low 8.4-10.4 [facility] Comment on above: Performed By: #### L AB113, [id number], LAB15 ####[employer] Architect: MARY SOTELO ([id number])[facility] [place] [address] [place] Chloride [Moles/Vol] 100 mmol/L Normal 98-107 [facility] Comment on above: Performed By: #### L AB113, [id number], LAB15 ####[employer] Architect: MARY SOTELO ([id number])[facility])[address] [place] [address] CO2 [Moles/Vol] 22 mmol/L Normal 22-30 [facility] Comment on above: Performed By: #### Dora ABGabbie, [id number], LAB15 ####[employer] Architect: MARY SOTELO ([id number])[facility])[address] [place] [address] Creatinine [Mass/Vol] 2.97 mg/dL High 0.52-1.04 [facility] Comment on above: Performed By: #### Dora ABGabbie, [id number], LAB15 ####[employer] Architect: MARY SOTELO ([id number])[facility])[address] [place] [address] [place] GLOMERULAR FILTRATION RATE ML/MIN/1.73 SQ M.PREDICTED 17.1 mL/min/1.73m*2 Low >60.0 [facility] Comment on above: Result Comment: Calc ulation based on the Chronic Kidney Disease Epidemiology Collaboration (CKD-EPI) equation refit without adjustment for race Performed By: #### L AB113, [id number], LAB15 ####[employer] Architect: MARY SOTELO ([id number])[facility])[address] [place] [address] [place] Glucose [Mass/Vol] 270 mg/dL High 70-100 [facility] Comment on above: Performed By: #### L AB113, [id number], LAB15 ####[employer] Architect: MARY SOTELO ([id number])[facility])[address] [place] [address] Potassium [Moles/Vol] 3.9 mmol/L Normal 3.5-5.1 [facility] Comment on above: Performed By: #### L AB113, [id number], LAB15 ####[employer] Architect: MARY SOTELO ([id number])[facility])[address] [place] [address] Sodium [Moles/Vol] 130 mmol/L Low 135-145 [facility] Comment on above: Performed By: #### L AB113, [id number], LAB15 ####[employer] Architect: MARY SOTELO ([id number])[facility])[address] [place] [address] Urea nitrogen [Mass/Vol] 27 mg/dL High 7-17 [facility] Comment on above: Performed By: #### L AB113, [id number], LAB15 ####[employer] Architect: MARY SOTELO ([id number])[facility] ([facility])[address] [place] [address] Bacteria identified Cx Nom ( Bld)Ordered By: Kaitlyn Corona on 08-15-2024 Interpretation and review of laboratory results Abnormal [facility] Basic metabolic 1998 panelOr dered By: Deirdre Maciel on 08-15-2024 Anion gap [Moles/Vol] 8 mmol/L 3 - 13 mmol/L [facility] Calcium [Mass/Vol] 7.1 mg/dL Low 8.4 - 10. 4 mg/dL [facility] Chloride [Moles/Vol] 100 mmol/L 98 - 10 7 mmol/L [facility] CO2 [Moles/Vol] 22 mmol/L 22 - 30 mmol/L [facility] Creatinine [Mass/Vol] 2.97 mg/dL High 0.52 - 1.04 mg/dL [facility] GFR/1.73 sq M.predicted (S/P/Bld) [Vol rate/Area] 17.1 mL/min Low - PINF [facility] Glucose [Mass/Vol] 270 mg/dL High 70 - 100 mg/dL [facility] Interpretation and review of laboratory results Abnormal [facility] Potassium [Moles/Vol] 3.9 mmol/L 3.5 - 5.1 mmol/L [facility] Sodium [Moles/Vol] 130 mmol/L Low 135 - 145 mmol/L [facility] Urea nitrogen [Mass/Vol] 27 mg/dL High 7 - 17 mg/dL [facility] CALCIUM, IONIZEDon CALCIUM IONIZED 3.90 mg/dL Low 4.30-5.20 [facility] Comment on above: Performed By: #### L [id number] ####[employer] Architect: MARY SOTELO ([id number])[facility])[address] [place] [address] PH, IONIZED CALCIUM 7.29 Low 7.31-7.46 [facility] Comment on above: Performed By: #### L [id number] ####[employer] Architect: MARY SOTELO ([id number])[facility] ([facility])[address] [place] [address] CBC W Auto Differential pane l (Bld)Ordered By: Olamide Orozco on 08-15-2024 Basophils (Bld) [#/Vol] 0 10*3/uL 0.0 - 0.2 10*3/uL [facility] Basophils/100 WBC (Bld) 0.2 % 0.0 - 2.0 % [facility] Eosinophils (Bld) [#/Vol] 0 10*3/uL 0.0 - 0.5 10*3/uL [facility] Eosinophils/100 WBC (Bld) 0.6 % 0.0 - 6.0 % [facility] Erythrocyte distribution width (RBC) [Ratio] 15.9 % High 11.5 - 15.0 % [facility] Hematocrit (Bld) [Volume fraction] 30.3 % Low 35.0 - 47.0 % [facility] Hemoglobin (Bld) [Mass/Vol] 9.5 g/dL Low 11.7 - 16.0 g/dL [facility] Immature granulocytes (Bld) [#/Vol] 0 10*3/uL NINF - 0.1 10*3/uL [facility] Immature granulocytes/100 WBC (Bld) 0.8 % 0.0 - 2.0 % [facility] Interpretation and review of laboratory results Abnormal [facility] IPF 4 [facility] Lymphocytes (Bld) [#/Vol] 0.6 10*3/uL Low 1.0 - 4.3 10*3/uL [facility] Lymphocytes/100 WBC (Bld) 12.7 % Low 15.0 - 45.0 % [facility] MCH (RBC) [Entitic mass] 29 pg 26.0 - 34.0 pg [facility] MCHC (RBC) [Mass/Vol] 31.4 % 30.5 - 36.0 % [facility] MCV (RBC) [Entitic vol] 92.4 fL 77.0 - 99.0 fL [facility] Monocytes (Bld) [#/Vol] 0.4 10*3/uL 0.0 - 0.9 10*3/uL [facility] Monocytes/100 WBC (Bld) 7.3 % 5.0 - 13.0 % [facility] Neutrophils (Bld) [#/Vol] 3.9 10*3/uL 1.8 - 7.5 10*3/uL [facility] Neutrophils/100 WBC (Bld) 78.4 % 38.0 - 82.0 % [facility] Nucleated RBC/100 WBC (Bld) [Ratio] 0 % [facility] Platelet mean volume (Bld) [Entitic vol] 10.1 fL 9.0 - 12.7 fL [facility] Platelets (Bld) [#/Vol] 90 10*3/uL Low 140 - 440 10*3/uL [facility] RBC (Bld) [#/Vol] 3.28 10*6/uL Low 3.80 - 5.2 0 10*6/uL [facility] WBC (Bld) [#/Vol] 5 10*3/uL 3.6 - 10.7 10*3/uL [facility] CBC WITH AUTO DIFFERENTIALon 08-15-2024 Basophils (Bld) [#/Vol] 0.0 10*3/uL Normal 0.0-0.2 [facility] Comment on above: Performed By: #### L [id number] ####[employer] Architect: MARY SOTELO ([id number])[facility] ([address] Basophils/100 WBC (Bld) 0.2 % Normal 0.0-2.0 [facility] Comment on above: Performed By: #### L [id number] ####[employer] Architect: MARY SOTELO ([id number])[facility])[address] [place] [address] Eosinophils (Bld) [#/Vol] 0.0 10*3/uL Normal 0.0-0.5 [facility] Comment on above: Performed By: #### L [id number] ####[employer] Architect: MARY SOTELO ([id number])[address] Eosinophils/100 WBC (Bld) 0.6 % Normal 0.0-6.0 [facility] Comment on above: Performed By: #### L [id number] ####[employer] Architect: MARY SOTELO ([id number])[facility])[address] [place] [address] Erythrocyte distribution width (RBC) [Ratio] 15.9 % High 11.5-15.0 [facility] Comment on above: Performed By: #### L [id number] ####[employer] Architect: MARY SOTELO ([id number])[address] Hematocrit (Bld) [Volume fraction] 30.3 % Low 35.0-47.0 [facility] Comment on above: Performed By: #### L [id number] ####[employer] Architect: MARY SOTELO ([id number])[address] Hemoglobin (Bld) [Mass/Vol] 9.5 g/dL Low 11.7-16.0 [facility] Comment on above: Performed By: #### L [id number] ####[employer] Architect: MARY SOTELO ([id number])[address] IMMATURE GRANS % 0.8 % Normal 0.0-2.0 [facility] Comment on above: Performed By: #### L [id number] ####[employer] Architect: MARY SOTELO ([id number])[facility])[address] [place] [address] IMMATURE GRANS ABSOLUTE 0.0 10*3/uL Normal <0.1 [facility] Comment on above: Performed By: #### L [id number] ####[employer] Architect: MARY SOTELO ([id number])[facility])[address] [place] [address] IPF 4 Normal [facility] Comment on above: Performed By: #### L [id number] ####[employer] Architect: MARY SOTELO ([id number])[address] Lymphocytes (Bld) [#/Vol] 0.6 10*3/uL Low 1.0-4.3 [facility] Comment on above: Performed By: #### L [id number] ####[employer] Architect: MARY SOTELO ([id number])[address] Lymphocytes/100 WBC (Bld) 12.7 % Low 15.0-45.0 [facility] Comment on above: Performed By: #### L [id number] ####[employer] Architect: MARY SOTELO ([id number])[address] MCH (RBC) [Entitic mass] 29.0 pg Normal 26.0-34.0 [facility] Comment on above: Performed By: #### L [id number] ####[employer] Architect: MARY SOTELO ([id number])[address] MCHC 31.4 % Normal 30.5-36.0 [facility] Comment on above: Performed By: #### L [id number] ####[employer] Architect: MARY SOTELO ([id number])[address] [place] [address] [place] MCV (RBC) [Entitic vol] 92.4 fL Normal 77.0-99.0 [facility] Comment on above: Performed By: #### L [id number] ####[employer] Architect: MARY SOTELO ([id number])[facility])[address] [place] [address] Monocytes (Bld) [#/Vol] 0.4 10*3/uL Normal 0.0-0.9 [facility] Comment on above: Performed By: #### L [id number] ####[employer] Architect: MARY SOTELO ([id number])[facility])[address] [place] [address] Monocytes/100 WBC (Bld) 7.3 % Normal 5.0-13.0 [facility] Comment on above: Performed By: #### L [id number] ####[employer] Architect: MARY SOTELO ([id number])[facility])[address] [place] [address] NEUTROPHILS ABSOLUTE 3.9 10*3/uL Normal 1.8-7.5 [facility] Comment on above: Performed By: #### L [id number] ####[employer] Architect: MARY SOTELO ([id number])[facility])[address] [place] [address] Neutrophils/100 WBC (Bld) 78.4 % Normal 38.0-82.0 [facility] Comment on above: Performed By: #### L [id number] ####[employer] Architect: MARY SOTELO ([id number])[facility])[address] [place] [address] NRBC 0.0 /100 WBCs Normal 0.0-2.0 [facility] Comment on above: Performed By: #### L [id number] ####[employer] Architect: MARY SOTELO ([id number])[facility] ([facility])[address] [place] [address] Platelet mean volume (Bld) [Entitic vol] 10.1 fL Normal 9.0-12.7 [facility] Comment on above: Performed By: #### L [id number] ####[employer] Architect: MARY SOTELO ([id number])[facility] ([facility])[address] [place] [address] Platelets (Bld) [#/Vol] 90 10*3/uL Low 140-440 [facility] Comment on above: Performed By: #### L [id number] ####[employer] Architect: MARY SOTELO ([id number])[facility] ([facility])[address] [place] [address] RBC (Bld) [#/Vol] 3.28 10*6/uL Low 3.80-5.20 [facility] Comment on above: Performed By: #### L [id number] ####[employer] Architect: MARY SOTELO ([id number])[facility] ([facility])[address] [place] [address] WBC (Bld) [#/Vol] 5.0 10*3/uL Normal 3.6-10.7 [facility] Comment on above: Performed By: #### L [id number] ####[employer] Architect: MARY SOTELO ([id number])[facility] ([facility])[address] [place] [address] Calcium.ionized [Moles/Vol]O rdered By: Nicole Lakhani on 08-15-2024 Calcium.ionized (Bld) [Moles/Vol] 3.9 mg/dL Low 4.30 - 5.20 mg/dL [facility] Interpretation and review of laboratory results Abnormal [facility] PH, IONIZED CALCIUM 7.29 Low 7.31 - 7.46 [facility] IDNon 08-15-2024 IDN Normal [facility] Laboratory - Chemistry and C hemistry - challengeon 08-15-2024 Glucose [Mass/Vol] 344 mg/dL High 70 - 100 mg/dL [facility] Glucose [Mass/Vol] 368 mg/dL High 70 - 100 mg/dL [facility] Glucose [Mass/Vol] 340 mg/dL High 70 - 100 mg/dL [facility] Glucose [Mass/Vol] 302 mg/dL High 70 - 100 mg/dL [facility] Magnesium [Mass/Vol] 2.1 mg/dL 1.6 - 2 .3 mg/dL [facility] Laboratory - Microbiology an d Antimicrobial susceptibilityOrdered By: Kaitlyn Corona on 08-15-2024 Bacteria identified Cx Nom (Bld) Staphylococcus epidermidis Critically abnormal [facility] Laboratory - Miscellaneous t estson 08-15-2024 Service comment (Unsp spec) [Interp] 0.052 [facility] Laboratory - Serology - non- microon 08-15-2024 Heparin induced platelet Ab Ql (S) Negative Negative [facility] MAGNESIUMon 08-15-2024 Magnesium [Mass/Vol] 2.1 mg/dL Normal 1.6-2.3 [facility] Comment on above: Performed By: #### L [id number], [id number], LAB15 ####[employer] Architect: MARY SOTELO ([id number])[facility] ([facility])[address] [place] [address] No Panel Informationon 08-15 Interpretation and review of laboratory results Abnormal [facility] Interpretation and review of laboratory results Abnormal [facility] Interpretation and review of laboratory results Abnormal [facility] Interpretation and review of laboratory results Abnormal [facility] Interpretation and review of laboratory results Normal [facility] PHOSPHORUSon 08-15-2024 Phosphate [Mass/Vol] 4.5 mg/dL Normal 2.5-4.5 [facility] Comment on above: Performed By: #### L AB113, [id number], LAB15 ####[employer] Architect: MARY SOTELO ([id number])[facility] ([facility])[address] [place] [address] Phosphate [Moles/Vol]on 08-03 Phosphate [Mass/Vol] 4.5 mg/dL 2.5 - 4 .5 mg/dL [facility] Progress Noteon 08-15-2024 Progress Note Normal [facility] Progress Note Normal [facility] BASIC METABOLIC PANELon 08-03 Anion gap [Moles/Vol] 10 mmol/L Normal 3-13 [facility] Comment on above: Performed By: #### L AB113, [id number], LAB15 ####[employer] Architect: MARY SOTELO ([id number])[facility])[address] [place] [address] Calcium [Mass/Vol] 6.8 mg/dL Low 8.4-10.4 [facility] Comment on above: Performed By: #### L AB113, [id number], LAB15 ####[employer] Architect: MARY SOTELO ([id number])[facility] [place] [address] Chloride [Moles/Vol] 96 mmol/L Low 98-107 [facility] Comment on above: Performed By: #### L AB113, [id number], LAB15 ####[employer] Architect: MARY SOTELO ([id number])[facility] [place] [address] CO2 [Moles/Vol] 25 mmol/L Normal 22-30 [facility] Comment on above: Performed By: #### L AB113, [id number], LAB15 ####[employer] Architect: MARY SOTELO ([id number])[facility] [place] [address] Creatinine [Mass/Vol] 1.91 mg/dL High 0.52-1.04 [facility] Comment on above: Performed By: #### L AB113, [id number], LAB15 ####[employer] Architect: MARY SOTELO ([id number])[facility])[address] [place] [address] GLOMERULAR FILTRATION RATE ML/MIN/1.73 SQ M.PREDICTED 29.0 mL/min/1.73m*2 Low >60.0 [facility] Comment on above: Result Comment: Calc ulation based on the Chronic Kidney Disease Epidemiology Collaboration (CKD-EPI) equation refit without adjustment for race Performed By: #### L AB113, [id number], LAB15 ####[employer] Architect: MARY SOTELO ([id number])[facility])[address] [place] [address] Glucose [Mass/Vol] 361 mg/dL High 70-100 [facility] Comment on above: Performed By: #### L AB113, [id number], LAB15 ####[employer] Architect: MARY SOTELO ([id number])[facility])[address] [place] [address] Potassium [Moles/Vol] 3.5 mmol/L Normal 3.5-5.1 [facility] Comment on above: Performed By: #### L AB113, [id number], LAB15 ####[employer] Architect: MARY SOTELO ([id number])[facility])[address] [place] [address] Sodium [Moles/Vol] 130 mmol/L Low 135-145 [facility] Comment on above: Performed By: #### L AB113, [id number], LAB15 ####[employer] Architect: MARY SOTELO ([id number])[facility] ([facility])[address] [place] [address] Urea nitrogen [Mass/Vol] 18 mg/dL High 7-17 [facility] Comment on above: Performed By: #### L AB113, [id number], LAB15 ####[employer] Architect: MARY SOTELO ([id number])[facility])[address] [place] [address] BLOOD CULTUREon 08-14-2024 Bacteria identified Cx Nom (Bld) Normal [facility] Comment on above: Performed By: #### L [id number] ####[employer] Architect: MARY SOTELO ([id number])[facility])[address] [place] [address] Bacteria identified Cx Nom (Bld) Normal [facility] Comment on above: Performed By: #### L [id number] ####[employer] Architect: MARY SOTELO ([id number])[facility])[address] [place] [address] Basic metabolic 1998 panelon 08-14-2024 Anion gap [Moles/Vol] 10 mmol/L 3 - 13 mmol/L [facility] Calcium [Mass/Vol] 6.8 mg/dL Low 8.4 - 10. 4 mg/dL [facility] Chloride [Moles/Vol] 96 mmol/L Low 98 - 10 7 mmol/L [facility] CO2 [Moles/Vol] 25 mmol/L 22 - 30 mmol/L [facility] Creatinine [Mass/Vol] 1.91 mg/dL High 0.52 - 1.04 mg/dL [facility] GFR/1.73 sq M.predicted (S/P/Bld) [Vol rate/Area] 29 mL/min Low - PINF [facility] Glucose [Mass/Vol] 361 mg/dL High 70 - 100 mg/dL [facility] Interpretation and review of laboratory results Abnormal [facility] Potassium [Moles/Vol] 3.5 mmol/L 3.5 - 5.1 mmol/L [facility] Sodium [Moles/Vol] 130 mmol/L Low 135 - 145 mmol/L [facility] Urea nitrogen [Mass/Vol] 18 mg/dL High 7 - 17 mg/dL [facility] CBC W Auto Differential pane l (Bld)Ordered By: Wei Adamson on 08-14-2024 Basophils (Bld) [#/Vol] 0 10*3/uL 0.0 - 0.2 10*3/uL [facility] Basophils/100 WBC (Bld) 0.2 % 0.0 - 2.0 % [facility] Eosinophils (Bld) [#/Vol] 0 10*3/uL 0.0 - 0.5 10*3/uL [facility] Eosinophils/100 WBC (Bld) 0.2 % 0.0 - 6.0 % [facility] Erythrocyte distribution width (RBC) [Ratio] 16.4 % High 11.5 - 15.0 % [facility] Hematocrit (Bld) [Volume fraction] 28.7 % Low 35.0 - 47.0 % [facility] Hemoglobin (Bld) [Mass/Vol] 9.2 g/dL Low 11.7 - 16.0 g/dL [facility] Immature granulocytes (Bld) [#/Vol] 0 10*3/uL NINF - 0.1 10*3/uL [facility] Immature granulocytes/100 WBC (Bld) 0.6 % 0.0 - 2.0 % [facility] Interpretation and review of laboratory results Abnormal [facility] IPF 4 [facility] Lymphocytes (Bld) [#/Vol] 0.7 10*3/uL Low 1.0 - 4.3 10*3/uL [facility] Lymphocytes/100 WBC (Bld) 13.6 % Low 15.0 - 45.0 % [facility] MCH (RBC) [Entitic mass] 29.2 pg 26.0 - 34.0 pg [facility] MCHC (RBC) [Mass/Vol] 32.1 % 30.5 - 36.0 % [facility] MCV (RBC) [Entitic vol] 91.1 fL 77.0 - 99.0 fL [facility] Monocytes (Bld) [#/Vol] 0.4 10*3/uL 0.0 - 0.9 10*3/uL [facility] Monocytes/100 WBC (Bld) 8 % 5.0 - 13.0 % [facility] Neutrophils (Bld) [#/Vol] 4 10*3/uL 1.8 - 7.5 10*3/uL [facility] Neutrophils/100 WBC (Bld) 77.4 % 38.0 - 82.0 % [facility] Nucleated RBC/100 WBC (Bld) [Ratio] 0 % [facility] Platelet mean volume (Bld) [Entitic vol] 10.9 fL 9.0 - 12.7 fL [facility] Platelets (Bld) [#/Vol] 79 10*3/uL Low 140 - 440 10*3/uL [facility] RBC (Bld) [#/Vol] 3.15 10*6/uL Low 3.80 - 5.2 0 10*6/uL [facility] WBC (Bld) [#/Vol] 5.2 10*3/uL 3.6 - 10.7 10*3/uL [facility] CBC WITH AUTO DIFFERENTIALon 08-14-2024 Basophils (Bld) [#/Vol] 0.0 10*3/uL Normal 0.0-0.2 [facility] Comment on above: Performed By: #### L [id number] ####[employer] Architect: MARY SOTELO ([id number])[facility] ([address] Basophils/100 WBC (Bld) 0.2 % Normal 0.0-2.0 [facility] Comment on above: Performed By: #### L [id number] ####[employer] Architect: MARY SOTELO ([id number])[facility])[address] [place] [address] Eosinophils (Bld) [#/Vol] 0.0 10*3/uL Normal 0.0-0.5 [facility] Comment on above: Performed By: #### L [id number] ####[employer] Architect: MARY SOTELO ([id number])[facility])[address] [place] [address] Eosinophils/100 WBC (Bld) 0.2 % Normal 0.0-6.0 [facility] Comment on above: Performed By: #### L [id number] ####[employer] Architect: MARY SOTELO ([id number])[facility])[address] [place] [address] Erythrocyte distribution width (RBC) [Ratio] 16.4 % High 11.5-15.0 [facility] Comment on above: Performed By: #### L [id number] ####[employer] Architect: MARY SOTELO ([id number])[facility])[address] [place] [address] Hematocrit (Bld) [Volume fraction] 28.7 % Low 35.0-47.0 [facility] Comment on above: Performed By: #### L [id number] ####[employer] Architect: MARY SOTELO ([id number])[facility])[address] [place] [address] Hemoglobin (Bld) [Mass/Vol] 9.2 g/dL Low 11.7-16.0 [facility] Comment on above: Performed By: #### L [id number] ####[employer] Architect: MARY SOTELO ([id number])[facility])[address] [place] [address] IMMATURE GRANS % 0.6 % Normal 0.0-2.0 [facility] Comment on above: Performed By: #### L [id number] ####[employer] Architect: MARY SOTELO ([id number])[facility])[address] [place] [address] IMMATURE GRANS ABSOLUTE 0.0 10*3/uL Normal <0.1 [facility] Comment on above: Performed By: #### L [id number] ####[employer] Architect: MARY SOTELO ([id number])[facility])[address] [place] [address] IPF 4 Normal [facility] Comment on above: Performed By: #### L [id number] ####[employer] Architect: MARY SOTELO ([id number])[facility])[address] [place] [address] Lymphocytes (Bld) [#/Vol] 0.7 10*3/uL Low 1.0-4.3 [facility] Comment on above: Performed By: #### L [id number] ####[employer] Architect: MARY SOTELO ([id number])[facility])[address] [place] [address] Lymphocytes/100 WBC (Bld) 13.6 % Low 15.0-45.0 [facility] Comment on above: Performed By: #### L [id number] ####[employer] Architect: MARY SOTELO ([id number])[facility])[address] [place] [address] MCH (RBC) [Entitic mass] 29.2 pg Normal 26.0-34.0 [facility] Comment on above: Performed By: #### L [id number] ####[employer] Architect: MARY SOTELO ([id number])[facility])[address] [place] [address] MCHC 32.1 % Normal 30.5-36.0 [facility] Comment on above: Performed By: #### L [id number] ####[employer] Architect: MARY SOTELO ([id number])[facility])[address] [place] [address] [place] MCV (RBC) [Entitic vol] 91.1 fL Normal 77.0-99.0 [facility] Comment on above: Performed By: #### L [id number] ####[employer] Architect: MARY SOTELO ([id number])[facility])[address] [place] [address] Monocytes (Bld) [#/Vol] 0.4 10*3/uL Normal 0.0-0.9 [facility] Comment on above: Performed By: #### L [id number] ####[employer] Architect: MARY SOTELO ([id number])[facility] ([facility])[address] [place] [address] Monocytes/100 WBC (Bld) 8.0 % Normal 5.0-13.0 [facility] Comment on above: Performed By: #### L [id number] ####[employer] Architect: MARY SOTELO ([id number])[facility])[address] [place] [address] NEUTROPHILS ABSOLUTE 4.0 10*3/uL Normal 1.8-7.5 [facility] Comment on above: Performed By: #### L [id number] ####[employer] Architect: MARY SOTELO ([id number])[facility])[address] [place] [address] Neutrophils/100 WBC (Bld) 77.4 % Normal 38.0-82.0 [facility] Comment on above: Performed By: #### L [id number] ####[employer] Architect: MARY SOTELO ([id number])[facility] ([facility])[address] [place] [address] NRBC 0.0 /100 WBCs Normal 0.0-2.0 [facility] Comment on above: Performed By: #### L [id number] ####[employer] Architect: MARY SOTELO ([id number])[facility])[address] [place] [address] Platelet mean volume (Bld) [Entitic vol] 10.9 fL Normal 9.0-12.7 [facility] Comment on above: Performed By: #### L [id number] ####[employer] Architect: MARY SOTELO ([id number])[facility] ([facility])[address] [place] [address] Platelets (Bld) [#/Vol] 79 10*3/uL Low 140-440 [facility] Comment on above: Performed By: #### L [id number] ####[employer] Architect: MARY SOTELO ([id number])[facility] ([facility])[address] [place] [address] RBC (Bld) [#/Vol] 3.15 10*6/uL Low 3.80-5.20 [facility] Comment on above: Performed By: #### L [id number] ####[employer] Architect: MARY SOTELO ([id number])[facility] ([facility])[address] [place] [address] WBC (Bld) [#/Vol] 5.2 10*3/uL Normal 3.6-10.7 [facility] Comment on above: Performed By: #### L [id number] ####[employer] Architect: MARY SOTELO ([id number])[facility] ([facility])[address] [place] [address] IDNon 08-14-2024 IDN Normal [facility] Laboratory - Chemistry and C hemistry - challengeon 08-14-2024 Glucose [Mass/Vol] 248 mg/dL High 70 - 100 mg/dL [facility] Glucose [Mass/Vol] 233 mg/dL High 70 - 100 mg/dL [facility] Glucose [Mass/Vol] 294 mg/dL High 70 - 100 mg/dL [facility] Glucose [Mass/Vol] 356 mg/dL High 70 - 100 mg/dL [facility] Magnesium [Mass/Vol] 2.1 mg/dL 1.6 - 2 .3 mg/dL [facility] MAGNESIUMon 08-14-2024 Magnesium [Mass/Vol] 2.1 mg/dL Normal 1.6-2.3 [facility] Comment on above: Performed By: #### L [id number], [id number], [id number] ####[employer] Architect: MARY [id number])[facility] ([facility])[address] [place] [address] No Panel Informationon 08-14 Interpretation and review of laboratory results Abnormal [facility] Interpretation and review of laboratory results Abnormal [facility] Interpretation and review of laboratory results Abnormal [facility] Interpretation and review of laboratory results Abnormal [facility] Interpretation and review of laboratory results Normal [facility] PHOSPHORUSon 08-14-2024 Phosphate [Mass/Vol] 2.9 mg/dL Normal 2.5-4.5 [facility] Comment on above: Performed By: #### L AB113, [id number], LAB15 ####Obiee [employer] Solution Architect: MAYR SOTELO ([id number])[facility])[address] [place] [address] Phosphate [Moles/Vol]on 08-03 Phosphate [Mass/Vol] 2.9 mg/dL 2.5 - 4 .5 mg/dL [facility] Progress Noteon 08-14-2024 Progress Note Normal [facility] Progress Note Normal [facility] Progress Note Normal [facility] Progress Note Normal [facility] BASIC METABOLIC PANELon 08-03 Anion gap [Moles/Vol] 11 mmol/L Normal 3-13 [facility] Comment on above: Performed By: #### L AB15, [id number], [id number] ####Obiee [employer] Solution Architect: MARY SOTELO ([id number])[facility])[address] [place] [address] Calcium [Mass/Vol] 7.1 mg/dL Low 8.4-10.4 [facility] Comment on above: Performed By: #### L AB15, [id number], [id number] ####Obiee Ob[employer] Solution Architect: MARY SOTELO ([id number])[facility])[address] [place] [address] [place] Chloride [Moles/Vol] 103 mmol/L Normal 98-107 [facility] Comment on above: Performed By: #### L AB15, [id number], ERQ098 ####Obiee Ob[employer] Solution Architect: MARY SOTELO ([id number])[facility])[address] [place] [address] CO2 [Moles/Vol] 19 mmol/L Low 22-30 [facility] Comment on above: Performed By: #### L AB15, [id number], [id number] ####Obiee Obia Solution Architect: MARY SOTELO ([id number])[facility])[address] [place] [address] Creatinine [Mass/Vol] 2.43 mg/dL High 0.52-1.04 [facility] Comment on above: Performed By: #### L AB15, [id number], [id number] ####Obiee Obia Solution Architect: MARY SOTELO ([id number])[facility])[address] [place] [address] GLOMERULAR FILTRATION RATE ML/MIN/1.73 SQ M.PREDICTED 21.7 mL/min/1.73m*2 Low >60.0 [facility] Comment on above: Result Comment: Calc ulation based on the Chronic Kidney Disease Epidemiology Collaboration (CKD-EPI) equation refit without adjustment for race Performed By: #### Dora AB15, [id number], [id number] ####Obiee Obia Solution Architect: MARY SOTELO ([id number])[facility])[address] [place] [address] Glucose [Mass/Vol] 211 mg/dL High 70-100 [facility] Comment on above: Performed By: #### L AB15, [id number], [id number] ####Obiee Obia Solution Architect: MARY SOTELO ([id number])[facility])[address] [place] [address] Potassium [Moles/Vol] 3.7 mmol/L Normal 3.5-5.1 [facility] Comment on above: Performed By: #### L AB15, [id number], [id number] ####Obiee Ob[employer] Solution Architect: MARY SOTELO ([id number])[facility])[address] [place] [address] [place] Sodium [Moles/Vol] 134 mmol/L Low 135-145 [facility] Comment on above: Performed By: #### L AB15, [id number], [id number] ####Obiee Obia Solution Architect: MARY SOTELO ([id number])[facility])[address] [place] [address] Urea nitrogen [Mass/Vol] 18 mg/dL High 7-17 [facility] Comment on above: Performed By: #### L AB15, [id number], GFU089 ####Obiee Obia Solution Architect: MARY SOTELO ([id number])[facility])[address] [place] [address] BETA HYDROXYBUTYRATEon 08-13 BETA HYDROXYBUTYRATE 33.80 mg/dL High 0.20-2.81 [facility] Comment on above: Performed By: #### L AB89, [id number], [id number], [id number] ####Obiee Obia Solution Architect: MARY SOTELO ([id number])[facility])[address] [place] [address] BLOOD GAS ARTERIALon 024 Base excess Calc (Bld) [Moles/Vol] -3.2000 mmol/L Low -3.0-3.0 [facility] Comment on above: Performed By: #### L AB76 ####Obiee Obia Solution Architect: MARY SOTELO ([id number])[facility])[address] [place] [address] CO2 [Moles/Vol] 24.8 mmol/L Normal 23.0-27.0 [facility] Comment on above: Performed By: #### L AB76 ####Obiee Obia Solution Architect: MARY SOTELO ([id number])[facility])[address] [place] [address] HCO3 (Bld) [Moles/Vol] 23.3 mmol/L Normal 21.0-25.0 [facility] Comment on above: Performed By: #### L AB76 ####Obiee Obia Solution Architect: MARY SOTELO ([id number])[facility])[address] [place] [address] Hemoglobin (Bld) [Mass/Vol] 8.3 g/dL Normal Screen only [facility] Comment on above: Performed By: #### L AB76 ####Obiee Obia Solution Architect: MARY SOTELO ([id number])[facility])[address] [place] [address] OXYGEN SATURATION (%) IN ARTERIAL BLOOD 95.8 % Normal 95.0-100.0 [facility] Comment on above: Performed By: #### L AB76 ####Obiee Obia Solution Architect: MARY SOTELO ([id number])[facility])[address] [place] [address] PCO2 ARTERIAL 49.4 mm Hg High >35.0-<45.0 [facility] Comment on above: Performed By: #### L AB76 ####Obiee Obia Solution Architect: MARY SOTELO ([id number])[facility])[address] [place] [address] PH ARTERIAL 7.291 Low 7.350-7.450 [facility] Comment on above: Performed By: #### L AB76 ####Obiee Obia Solution Architect: MARY SOTELO ([id number])[facility])[address] [place] [address] PO2 ARTERIAL 84.7 mm Hg Normal 80.0-100.0 [facility] Comment on above: Performed By: #### L AB76 ####Obiee Obia Solution Architect: MARY SOTELO ([id number])[facility])[address] [place] [address] SOURCE OF OXYGEN 30% Oxygen Normal [facility] Comment on above: Performed By: #### L AB76 ####Obiee Obia Solution Architect: MARY SOTELO ([id number])[facility])[address] [place] [address] CARECOORDon 08-13-2024 CARECOORD Normal [facility] CARECOORD Normal [facility] CBC W Auto Differential pane l (Bld)Ordered By: Elin Cline on 08-13-2024 Basophils (Bld) [#/Vol] 0 10*3/uL 0.0 - 0.2 10*3/uL [facility] Basophils/100 WBC (Bld) 0 % 0.0 - 2.0 % [facility] Eosinophils (Bld) [#/Vol] 0 10*3/uL 0.0 - 0.5 10*3/uL [facility] Eosinophils/100 WBC (Bld) 0 % 0.0 - 6.0 % [facility] Erythrocyte distribution width (RBC) [Ratio] 15.9 % High 11.5 - 15.0 % [facility] Hematocrit (Bld) [Volume fraction] 28.2 % Low 35.0 - 47.0 % [facility] Hemoglobin (Bld) [Mass/Vol] 9.2 g/dL Low 11.7 - 16.0 g/dL [facility] Immature granulocytes (Bld) [#/Vol] 0 10*3/uL NINF - 0.1 10*3/uL [facility] Immature granulocytes/100 WBC (Bld) 0.6 % 0.0 - 2.0 % [facility] Interpretation and review of laboratory results Abnormal [facility] IPF 3 [facility] Lymphocytes (Bld) [#/Vol] 0.3 10*3/uL Low 1.0 - 4.3 10*3/uL [facility] Lymphocytes/100 WBC (Bld) 9 % Low 15.0 - 45.0 % [facility] MCH (RBC) [Entitic mass] 29.4 pg 26.0 - 34.0 pg [facility] MCHC (RBC) [Mass/Vol] 32.6 % 30.5 - 36.0 % [facility] MCV (RBC) [Entitic vol] 90.1 fL 77.0 - 99.0 fL [facility] Monocytes (Bld) [#/Vol] 0.1 10*3/uL 0.0 - 0.9 10*3/uL [facility] Monocytes/100 WBC (Bld) 3.8 % Low 5.0 - 13.0 % [facility] Neutrophils (Bld) [#/Vol] 2.7 10*3/uL 1.8 - 7.5 10*3/uL [facility] Neutrophils/100 WBC (Bld) 86.6 % High 38.0 - 82.0 % [facility] Nucleated RBC/100 WBC (Bld) [Ratio] 0 % [facility] Platelet mean volume (Bld) [Entitic vol] 10.5 fL 9.0 - 12.7 fL [facility] Platelets (Bld) [#/Vol] 78 10*3/uL Low 140 - 440 10*3/uL [facility] RBC (Bld) [#/Vol] 3.13 10*6/uL Low 3.80 - 5.2 0 10*6/uL [facility] WBC (Bld) [#/Vol] 3.1 10*3/uL Low 3.6 - 10.7 10*3/uL [facility] CBC WITH AUTO DIFFERENTIALon 08-13-2024 Basophils (Bld) [#/Vol] 0.0 10*3/uL Normal 0.0-0.2 [facility] Comment on above: Performed By: #### L [id number] ####Obiee Obia Solution Architect: MARY SOTELO ([id number])[facility])[address] [place] [address] Basophils/100 WBC (Bld) 0.0 % Normal 0.0-2.0 [facility] Comment on above: Performed By: #### L [id number] ####Obiee Obia Solution Architect: MARY SOTELO ([id number])[address] Eosinophils (Bld) [#/Vol] 0.0 10*3/uL Normal 0.0-0.5 [facility] Comment on above: Performed By: #### L [id number] ####Obiee Obia Solution Architect: MARY SOTELO ([id number])[facility])[address] [place] [address] Eosinophils/100 WBC (Bld) 0.0 % Normal 0.0-6.0 [facility] Comment on above: Performed By: #### L [id number] ####Obiee Obia Solution Architect: MARY SOTELO ([id number])[facility])[address] [place] [address] Erythrocyte distribution width (RBC) [Ratio] 15.9 % High 11.5-15.0 [facility] Comment on above: Performed By: #### L [id number] ####Obiee Ob[employer] Solution Architect: MARY SOTELO ([id number])[facility])[address] [place] [address] Hematocrit (Bld) [Volume fraction] 28.2 % Low 35.0-47.0 [facility] Comment on above: Performed By: #### L [id number] ####Obiee Obia Solution Architect: MARY SOTELO ([id number])[facility])[address] [place] [address] Hemoglobin (Bld) [Mass/Vol] 9.2 g/dL Low 11.7-16.0 [facility] Comment on above: Performed By: #### L [id number] ####Obiee Obia Solution Architect: MARY SOTELO ([id number])[facility])[address] [place] [address] IMMATURE GRANS % 0.6 % Normal 0.0-2.0 [facility] Comment on above: Performed By: #### L [id number] ####Obiee Obia Solution Architect: MARY SOTELO ([id number])[facility])[address] [place] [address] IMMATURE GRANS ABSOLUTE 0.0 10*3/uL Normal <0.1 [facility] Comment on above: Performed By: #### L [id number] ####Obiee Obia Solution Architect: MARY SOTELO ([id number])[facility])[address] [place] [address] IPF 3 Normal [facility] Comment on above: Performed By: #### L [id number] ####Obiee Obia Solution Architect: MARY SOTELO ([id number])[facility])[address] [place] [address] Lymphocytes (Bld) [#/Vol] 0.3 10*3/uL Low 1.0-4.3 [facility] Comment on above: Performed By: #### L [id number] ####Obiee Obia Solution Architect: MARY SOTELO ([id number])[facility])[address] [place] [address] [place] Lymphocytes/100 WBC (Bld) 9.0 % Low 15.0-45.0 [facility] Comment on above: Performed By: #### L [id number] ####Obiee Obia Solution Architect: MARY SOTELO ([id number])[facility])[address] [place] [address] MCH (RBC) [Entitic mass] 29.4 pg Normal 26.0-34.0 [facility] Comment on above: Performed By: #### L [id number] ####Obiee Obia Solution Architect: MARY SOTELO ([id number])[facility])[address] [place] [address] MCHC 32.6 % Normal 30.5-36.0 [facility] Comment on above: Performed By: #### L [id number] ####Obiee Obia Solution Architect: MARY SOTELO ([id number])[facility])[address] [place] [address] MCV (RBC) [Entitic vol] 90.1 fL Normal 77.0-99.0 [facility] Comment on above: Performed By: #### L [id number] ####Obiee Obia Solution Architect: MARY SOTELO ([id number])[facility])[address] [place] [address] Monocytes (Bld) [#/Vol] 0.1 10*3/uL Normal 0.0-0.9 [facility] Comment on above: Performed By: #### L [id number] ####Obiee Obia Solution Architect: MARY SOTELO ([id number])[facility])[address] [place] [address] Monocytes/100 WBC (Bld) 3.8 % Low 5.0-13.0 [facility] Comment on above: Performed By: #### L [id number] ####Obiee Obia Solution Architect: MARY SOTELO ([id number])[facility])[address] [place] [address] NEUTROPHILS ABSOLUTE 2.7 10*3/uL Normal 1.8-7.5 [facility] Comment on above: Performed By: #### L [id number] ####Obiee Obia Solution Architect: MARY SOTELO ([id number])[facility])[address] [place] [address] Neutrophils/100 WBC (Bld) 86.6 % High 38.0-82.0 [facility] Comment on above: Performed By: #### L [id number] ####Obiee Obia Solution Architect: MARY SOTELO ([id number])[facility])[address] [place] [address] NRBC 0.0 /100 WBCs Normal 0.0-2.0 [facility] Comment on above: Performed By: #### L [id number] ####Obiee Obia Solution Architect: MARY SOTELO ([id number])[facility])[address] [place] [address] Platelet mean volume (Bld) [Entitic vol] 10.5 fL Normal 9.0-12.7 [facility] Comment on above: Performed By: #### L [id number] ####Obiee Obia Solution Architect: MARY SOTELO ([id number])[facility])[address] [place] [address] Platelets (Bld) [#/Vol] 78 10*3/uL Low 140-440 [facility] Comment on above: Performed By: #### L [id number] ####Obiee Obia Solution Architect: MARY SOTELO ([id number])[facility])[address] [place] [address] [place] RBC (Bld) [#/Vol] 3.13 10*6/uL Low 3.80-5.20 [facility] Comment on above: Performed By: #### L [id number] ####Obiee Obia Solution Architect: MARY SOTELO ([id number])[facility])[address] [place] [address] WBC (Bld) [#/Vol] 3.1 10*3/uL Low 3.6-10.7 [facility] Comment on above: Performed By: #### L [id number] ####Obiee Ob[employer] Solution Architect: MARY SOTELO ([id number])[facility])[address] [place] [address] Erythrocyte distribution width (RBC) [Ratio] 16.1 % High 11.5-15.0 [facility] Comment on above: Performed By: #### L [id number], [id number] ####Obiee Obia Solution Architect: MARY SOTELO ([id number])[facility])[address] [place] [address] Hematocrit (Bld) [Volume fraction] 21.0 % Low 35.0-47.0 [facility] Comment on above: Performed By: #### L [id number], [id number] ####Obiee [employer] Solution Architect: MARY SOTELO ([id number])[address] Hemoglobin (Bld) [Mass/Vol] 6.7 g/dL Critically low 11.7-16.0 [facility] Comment on above: Performed By: #### L [id number], [id number] ####Obiee [employer] Solution Architect: MARY SOTELO ([id number])[address] IPF 3 Normal [facility] Comment on above: Performed By: #### L [id number], [id number] ####Obiee Obia Solution Architect: MARY SOTELO ([id number])[address] MCH (RBC) [Entitic mass] 29.8 pg Normal 26.0-34.0 [facility] Comment on above: Performed By: #### L [id number], [id number] ####Obiee Obia Solution Architect: MARY SOTELO ([id number])[address] MCHC 31.9 % Normal 30.5-36.0 [facility] Comment on above: Performed By: #### L [id number], [id number] ####Obiee Obia Solution Architect: MARY SOTELO ([id number])[facility])[address] [place] [address] MCV (RBC) [Entitic vol] 93.3 fL Normal 77.0-99.0 [facility] Comment on above: Performed By: #### L [id number], [id number] ####Obiee Obia Solution Architect: MARY SOTELO ([id number])[facility])[address] [place] [address] Platelet mean volume (Bld) [Entitic vol] 11.1 fL Normal 9.0-12.7 [facility] Comment on above: Performed By: #### L [id number], [id number] ####Obiee Ob[employer] Solution Architect: MARY SOTELO ([id number])[facility])[address] [place] [address] Platelets (Bld) [#/Vol] 65 10*3/uL Low 140-440 [facility] Comment on above: Performed By: #### L [id number], [id number] ####Obiee Ob[employer] Solution Architect: MARY SOTELO ([id number])[facility])[address] [place] [address] RBC (Bld) [#/Vol] 2.25 10*6/uL Low 3.80-5.20 [facility] Comment on above: Performed By: #### L [id number], [id number] ####Obiee Ob[employer] Solution Architect: MARY SOTELO ([id number])[facility])[address] [place] [address] WBC (Bld) [#/Vol] 2.5 10*3/uL Low 3.6-10.7 [facility] Comment on above: Performed By: #### L [id number], [id number] ####Obiee [employer] Solution Architect: MARY SOTELO ([id number])[facility])[address] [place] [address] COMPLETE URINALYSISon 2023 BACTERIA (#/HPF) IN URINE Few Abnormal Negative [facility] Comment on above: Performed By: #### L [id number] ####Obiee Obia Solution Architect: MARY [id number])[facility] ([facility])[address] [place] [address] BILIRUBIN, TOTAL PRESENCE IN URINE Negative Normal Negative [facility] Comment on above: Performed By: #### L [id number] ####Obiee Obia Solution Architect: MARY SOTELO ([id number])[facility] ([facility])[address] [place] [address] Clarity (U) Extra Turbid Abnormal Clear [facility] Comment on above: Performed By: #### L [id number] ####Obiee Obia Solution Architect: MARY SOTELO ([id number])[facility])[address] [place] [address] Color (U) Yellow Normal Lt. Yellow [facility] Comment on above: Performed By: #### L [id number] ####Obiee Obia Solution Architect: MARY SOTELO ([id number])[facility] [place] [address] GLUCOSE (MG/DL) IN URINE Normal Normal Normal (<70) [facility] Comment on above: Performed By: #### L [id number] ####Obiee Obia Solution Architect: MARY SOTELO ([id number])[facility])[address] [place] [address] HEMOGLOBIN PRESENCE IN URINE 0.2 mg/dL Abnormal Negative [facility] Comment on above: Performed By: #### L [id number] ####Obiee Obia Solution Architect: MARY SOTELO ([id number])[facility] [place] [address] Ketones Ql (U) Trace Abnormal Negative [facility] Comment on above: Performed By: #### L [id number] ####Obiee Obia Solution Architect: MARY SOTELO ([id number])[facility])[address] [place] [address] LEUKOCYTE ESTERASE PRESENCE IN URINE BY TEST STRIP 500 Bere/uL Abnormal Negative [facility] Comment on above: Performed By: #### L [id number] ####Obiee [employer] Solution Architect: MARY SOTELO ([id number])[facility])[address] [place] [address] [place] MUCUS (#/LPF) IN URINE SEDIMENT Few Normal Negative [facility] Comment on above: Performed By: #### L [id number] ####Obiee Ob[employer] Solution Architect: MARY SOTELO ([id number])[facility])[address] [place] [address] NITRITE PRESENCE IN URINE Negative Normal Negative [facility] Comment on above: Performed By: #### L [id number] ####Obiee [employer] Solution Architect: MARY SOTELO ([id number])[facility])[address] [place] [address] NON-SQUAMOUS EPITHELIAL (#/HPF) IN URINE 0-2 Abnormal Negative [facility] Comment on above: Performed By: #### L [id number] ####Obiee Ob[employer] Solution Architect: MARY SOTELO ([id number])[facility])[address] [place] [address] pH (U) 5.5 [pH] Normal 5.0-8.0 [facility] Comment on above: Performed By: #### L [id number] ####Obiee [employer] Solution Architect: MARY SOTELO ([id number])[facility])[address] [place] [address] Protein (U) [Mass/Vol] 100 mg/dL Abnormal Negative [facility] Comment on above: Performed By: #### L [id number] ####Obiee [employer] Solution Architect: MARY SOTELO ([id number])[facility])[address] [place] [address] [place] RBC (#/HPF) IN URINE SEDIMENT 11-25 Abnormal 0-2 [facility] Comment on above: Performed By: #### L [id number] ####Obiee [employer] Solution Architect: MARY SOTELO ([id number])[facility])[address] [place] [address] Specific gravity (U) [Rel density] 1.021 Normal 1.005-1.030 [facility] Comment on above: Performed By: #### L [id number] ####Obiee [employer] Solution Architect: MARY SOTELO ([id number])[facility] ([facility])[address] [place] [address] [place] SQUAMOUS EPITHELIAL CELLS (#/HPF) IN URINE SEDIMENT 0-2 Normal 3-5 [facility] Comment on above: Performed By: #### L [id number] ####Obiee [employer] Solution Architect: MARY SOTELO ([id number])[facility] [place] [address] UROBILINOGEN (MG/DL) IN URINE Normal Normal Normal (0-1) [facility] Comment on above: Performed By: #### L [id number] ####Obiee [employer] Solution Architect: MARY SOTELO ([id number])[facility] [place] [address] WBC (LEUKOCYTE) (#/HPF) IN URINE SEDIMENT >100 Abnormal 0-5 [facility] Comment on above: Performed By: #### L [id number] ####Obiee [employer] Solution Architect: MARY SOTELO ([id number])[facility] [place] [address] WBC (LEUKOCYTE) CLUMPS (#/HPF) IN URINE SEDIMENT Occasional Abnormal Negative [facility] Comment on above: Performed By: #### L [id number] ####Obiee [employer] Solution Architect: MARY SOTELO ([id number])[facility] [place] [address] YEAST (#/HPF) IN URINE Many Abnormal Negative [facility] Comment on above: Performed By: #### L [id number] ####Obiee [employer] Solution Architect: MARY SOTELO ([id number])[facility] [place] [address] [place] Consulton 08-13-2024 Consult Normal [facility] Consult Normal [facility] Consult Normal [facility] HAPTOGLOBINon 08-13-2024 HAPTOGLOBIN 44.2 mg/dL Normal 30.0-200.0 [facility] Comment on above: Performed By: #### L [id number], [id number], [id number], [id number] ####[employer] Architect: MARY SOTELO ([id number])[facility])[address] [place] [address] HEMOGLOBIN AND HEMATOCRIT, B Sherice 08-13-2024 Hematocrit (Bld) [Volume fraction] 28.3 % Low 35.0-47.0 [facility] Comment on above: Order Comment: Recom mend 1 hour post transfusion Performed By: #### L [id number] ####[employer] Architect: MARY SOTELO ([id number])[facility])[address] [place] [address] Hemoglobin (Bld) [Mass/Vol] 9.2 g/dL Low 11.7-16.0 [facility] Comment on above: Order Comment: Recom mend 1 hour post transfusion Performed By: #### L [id number] ####[employer] Architect: MARY SOTELO ([id number])[address] Hematocrit (Bld) [Volume fraction] 27.5 % Low 35.0-47.0 [facility] Comment on above: Order Comment: Recom mend 1 hour post transfusion Performed By: #### L [id number] ####[employer] Architect: MARY SOTELO ([id number])[address] Hemoglobin (Bld) [Mass/Vol] 8.7 g/dL Low 11.7-16.0 [facility] Comment on above: Order Comment: Recom mend 1 hour post transfusion Performed By: #### L [id number] ####[employer] Architect: MARY SOTELO ([id number])[address] HEPARIN-INDUCED PLATELET AB, REFL JONO UNFRAC HEP (BKR QUEST)on 08-13-2024 [facility] HEPARIN INDUCED PLATELET ANTIBODY Negative Normal Negative [facility] Comment on above: Result Comment: This test is approximately 95% sensitive fordetecting antibodies to the Platelet Factor 4/HeparinComplex (PF4/Heparin). Although the result ofthis patient's sample is negative, a smallpercentage of patients may still be positiveby the Serotonin Release Assay (JONO), possiblydue to other target antigens involved in thisreaction such as Interleukin-8 or Neutrophil-Activating Peptide-2 (NAP-2). A clinical riskassessment score may provide additional guidancein deciding whether additional testing is ofvalue (J Thromb Haemost 2008;6:1304-12). Performed By: #### L [id number] ####[facility] (AMDBEAKER)[id number] [place], [facility] QUEST PATIENT O.D. 0.052 Normal [facility] Comment on above: Result Comment: ____ ! O.D.units ! Result !! ! !! <=0.300 ! Negative !! >0.300 to <=0.500 ! Weak Positive !! >0.500 ! Positive !! ! !For additional information, please refer [email or web address](This link is being provided for informational/educational purposes only.)Test Performed by Hui Mota,[employer] [facility],[address] [place] [address] [id number] Wells M.D., Ph.D., Director of [phone], [place] [id number] Performed By: #### L [id number] ####[facility] (AMDBEAKER)68050 [place], [facility] Hemoglobin (Bld) [Mass/Vol]O rdered By: Laurel Alva on 08-13-2024 Hematocrit (Bld) [Volume fraction] 28.3 % Low 35.0 - 47.0 % [facility] Interpretation and review of laboratory results Abnormal [facility] LACTATE DEHYDROGENASEon 08-03 LDH [Catalytic activity/Vol] 184 U/L Normal 120-246 [facility] Comment on above: Performed By: #### L [id number], [id number], [id number], [id number] ####[employer] Architect: MARY SOTELO ([id number])[facility] ([facility])[address] [place] [address] LACTIC ACID WITH REFLEXon Lactate [Moles/Vol] mmol/L Low 0.7-2.0 [facility] Comment on above: Performed By: #### L [id number] ####[employer] Architect: MARY SOTELO ([id number])[facility] ([facility])[address] [place] [address] Laboratory - Chemistry and C hemistry - challengeon 08-13-2024 Glucose [Mass/Vol] 310 mg/dL High 70 - 100 mg/dL [facility] Glucose [Mass/Vol] 259 mg/dL High 70 - 100 mg/dL [facility] Glucose [Mass/Vol] 176 mg/dL High 70 - 100 mg/dL [facility] Troponin I.cardiac [Mass/Vol] 0.074 ng/mL High NINF - 0.034 ng/mL [facility] Glucose [Mass/Vol] 307 mg/dL High 70 - 100 mg/dL [facility] Troponin I.cardiac [Mass/Vol] 0.07 ng/mL High NINF - 0.034 ng/mL [facility] Troponin I.cardiac [Mass/Vol] 0.065 ng/mL High NINF - 0.034 ng/mL [facility] Glucose [Mass/Vol] 259 mg/dL High 70 - 100 mg/dL [facility] Troponin I.cardiac [Mass/Vol] 0.073 ng/mL High NINF - 0.034 ng/mL [facility] Lactate [Moles/Vol] mmol/L Low 0.7 - 2. 0 mmol/L [facility] Base excess Calc (Bld) [Moles/Vol] -3.2000 mmol/L Low -3.0 - 3.0 mmol/L [facility] CO2 (Bld) [Partial pressure] 49.4 mm[Hg] High - PINF [facility] CO2 [Moles/Vol] 24.8 mmol/L 23.0 - 27.0 mmol/L [facility] HCO3 (Bld) [Moles/Vol] 23.3 mmol/L 21.0 - 25.0 mmol/L [facility] Oxygen (Bld) [Partial pressure] 84.7 mm[Hg] [facility] pH (Bld) 7.291 [pH] Low 7.350 - 7.450 [facility] Beta hydroxybutyrate [Mass/Vol] 33.8 mg/dL High 0.20 - 2.81 mg/dL [facility] Laboratory - Hematology and Cell countson 08-13-2024 Haptoglobin [Mass/Vol] 44.2 mg/dL 30.0 - 200.0 mg/dL [facility] Hemoglobin (Bld) [Mass/Vol] 8.3 g/dL Screen only [facility] Anisocytosis Ql (Bld) Slight Abnormal (none) [facility] Band form neutrophils (Bld) [#/Vol] 0.1 10*3/uL High NINF - 0.0 10*3/uL [facility] Band form neutrophils/100 WBC (Bld) 2 % High NINF - 0 % [facility] Basophilic stippling LM Ql (Bld) Slight Abnormal (none) [facility] Lymphocytes (Bld) [#/Vol] 0.2 10*3/uL Low 1.0 - 4.3 10*3/uL [facility] Lymphocytes/100 WBC (Bld) 7 % Low 15 - 45 % [facility] Microcytes Ql (Bld) Slight Abnormal (none) [facility] Monocytes (Bld) [#/Vol] 0 10*3/uL 0.0 - 0.9 10*3/uL [facility] Monocytes/100 WBC (Bld) 0 % Low 5 - 13 % [facility] Neutrophils (Bld) [#/Vol] 2.3 10*3/uL 1.8 - 7.5 10*3/uL [facility] Polychromasia LM Ql (Bld) Slight Abnormal (none) [facility] RBC morphology finding Nom (Bld) abnormal [facility] Segmented neutrophils/100 WBC (Bld) 91 % High 38 - 82 % [facility] Laboratory - Hematology and Cell countsOrdered By: Laurel Alva on 08-13-2024 Hemoglobin (Bld) [Mass/Vol] 9.2 g/dL Low 11.7 - 16.0 g/dL [facility] MAGNESIUMon 08-13-2024 Magnesium [Mass/Vol] 1.5 mg/dL Low 1.6-2.3 [facility] Comment on above: Performed By: #### L [id number], [id number], [id number] ####[employer] Architect: MARY SOTELO ([id number])[facility] [place] [address] [place] MANUAL DIFFERENTIAL (CELLAVI ESPINOZA)on 08-13-2024 ANISOCYTOSIS PRESENCE IN BLOOD BY LIGHT MICROSCOPY Slight Abnormal (none) [facility] Comment on above: Performed By: #### L [id number], [id number] ####[employer] Architect: MARY SOTELO ([id number])[facility] ([facility])[address] [place] [address] BAND NEUTROPHILS TOTAL PER COUNTED LEUKOCYTES BY MANUAL COUNT 2 Normal [facility] Comment on above: Performed By: #### L [id number], [id number] ####[employer] Architect: MARY SOTELO ([id number])[facility] ([facility])[address] [place] [address] [place] BANDS (10*3/UL) IN BLOOD-CELLAVISION 0.1 10*3/uL High <=0.0 [facility] Comment on above: Performed By: #### L [id number], [id number] ####[employer] Architect: MARY SOTELO ([id number])[facility] ([facility])[address] [place] [address] [place] BASOPHILIC STIPPLING PRESENCE IN BLOOD BY LIGHT MICROSCOPY Slight Abnormal (none) [facility] Comment on above: Performed By: #### L [id number], [id number] ####[employer] Architect: MARY SOTELO ([id number])[facility] ([facility])[address] [place] [address] [place] BASOPHILS TOTAL PER COUNTED LEUKOCYTES BY MANUAL COUNT Normal [facility] Comment on above: Performed By: #### L [id number], [id number] ####[employer] Architect: MARY SOTELO ([id number])[facility] ([facility])[address] [place] [address] [place] BLASTS TOTAL PER COUNTED LEUKOCYTES BY MANUAL COUNT Normal [facility] Comment on above: Performed By: #### L [id number], [id number] ####[employer] Architect: MARY SOTELO ([id number])[facility] ([facility])[address] [place] [address] EOSINOPHILS TOTAL PER COUNTED LEUKOCYTES BY MANUAL COUNT Normal [facility] Comment on above: Performed By: #### L [id number], [id number] ####[employer] Architect: MARY SOTELO ([id number])[facility] ([facility])[address] [place] [address] [place] LYMPHOCYTES (10*3/UL) IN BLOOD-CELLAVISION 0.2 10*3/uL Low 1.0-4.3 [facility] Comment on above: Performed By: #### L [id number], [id number] ####[employer] Architect: MARY SOTELO ([id number])[facility] ([facility])[address] [place] [address] [place] LYMPHOCYTES TOTAL PER COUNTED LEUKOCYTES BY MANUAL COUNT 7 Normal [facility] Comment on above: Performed By: #### L [id number], [id number] ####[employer] Architect: MARY SOTELO ([id number])[facility] ([facility])[address] [place] [address] LYMPHOCYTES/100 LEUKOCYTES IN BLOOD-CELLAVISION 7 % Low 15-45 [facility] Comment on above: Performed By: #### L [id number], [id number] ####[employer] Architect: MARY SOTELO ([id number])[facility] ([facility])[address] [place] [address] [place] METAMYELOCYTES TOTAL PER COUNTED LEUKOCYTES BY MANUAL COUNT Normal [facility] Comment on above: Performed By: #### L [id number], [id number] ####[employer] Architect: MARY SOTELO ([id number])[facility] ([facility])[address] [place] [address] [place] MICROCYTES (PRESENCE) IN BLOOD BY LIGHT MICROSCOPY Slight Abnormal (none) [facility] Comment on above: Performed By: #### L [id number], [id number] ####[employer] Architect: MARY SOTELO ([id number])[facility] ([facility])[address] [place] [address] [place] MONOCYTES (10*3/UL) IN BLOOD-CELLAVISION 0.0 10*3/uL Normal 0.0-0.9 [facility] Comment on above: Performed By: #### L [id number], [id number] ####[employer] Architect: MARY SOTELO ([id number])[facility] ([facility])[address] [place] [address] [place] MONOCYTES TOTAL PER COUNTED LEUKOCYTES BY MANUAL COUNT 0 Normal [facility] Comment on above: Performed By: #### L [id number], [id number] ####[employer] Architect: MARY SOTELO ([id number])[facility] ([facility])[address] [place] [address] [place] MONOCYTES/100 LEUKOCYTES IN BLOOD-KACEY 0 % Low 5-13 [facility] Comment on above: Performed By: #### L [id number], [id number] ####[employer] Architect: MARY SOTELO ([id number])[facility] ([facility])[address] [place] [address] [place] MYELOCYTES COUNTED BY MANUAL COUNT Normal [facility] Comment on above: Performed By: #### L [id number], [id number] ####[employer] Architect: MARY SOTELO ([id number])[facility] ([facility])[address] [place] [address] [place] NEUTROPHILS BAND FORM/100 LEUKOCYTES IN BLOOD-CELLAVISI 2 % High <=0 [facility] Comment on above: Performed By: #### L [id number], [id number] ####[employer] Architect: MARY SOTELO ([id number])[facility] ([facility])[address] [place] [address] [place] NEUTROPHILS TOTAL PER COUNTED LEUKOCYTES BY MANUAL COUNT 90 Normal [facility] Comment on above: Performed By: #### L [id number], [id number] ####[employer] Architect: MARY SOTELO ([id number])[facility])[address] [place] [address] [place] POLYCHROMASIA IN BLOOD BY LIGHT MICROSCOPY Slight Abnormal (none) [facility] Comment on above: Performed By: #### L [id number], [id number] ####[employer] Architect: MARY SOTELO ([id number])[facility])[address] [place] [address] [place] PROMYELOCYTES TOTAL PER COUNTED LEUKOCYTES BY MANUAL COUNT Normal [facility] Comment on above: Performed By: #### L [id number], [id number] ####[employer] Architect: MARY SOTELO ([id number])[facility] ([facility])[address] [place] [address] RBC MORPHOLOGY IN BLOOD abnormal Normal [facility] Comment on above: Performed By: #### L [id number], [id number] ####[employer] Architect: MARY SOTELO ([id number])[facility] ([facility])[address] [place] [address] SEGMENTED NEUTROPHILS (10*3/UL) IN BLOOD-CELLAVISION 2.3 10*3/uL Normal 1.8-7.5 [facility] Comment on above: Performed By: #### Dora [id number], [id number] ####[employer] Architect: MARY SOTELO ([id number])[facility] ([facility])[address] [place] [address] [place] SEGMENTED NEUTROPHILS/100 LEUKOCYTES-CE 91 % High 38-82 [facility] Comment on above: Performed By: #### L [id number], [id number] ####[employer] Architect: MARY SOTELO ([id number])[facility] ([facility])[address] [place] [address] [place] UNCLASSIFIED CELLS TOTAL PER COUNTED LEUKOCYTES BY MANUAL COUNT Normal [facility] Comment on above: Performed By: #### L [id number], [id number] ####[employer] Architect: MARY SOTELO ([id number])[facility] ([facility])[address] [place] [address] [place] VARIANT LYMPHOCYTES TOTAL PER COUNTED LEUKOCYTES BY MANUAL COUNT Normal [facility] Comment on above: Performed By: #### L [id number], [id number] ####[employer] Architect: MARY SOTELO ([id number])[facility] ([facility])[address] [place] [address] No Panel Informationon 08-13 Interpretation and review of laboratory results Abnormal [facility] Interpretation and review of laboratory results Abnormal [facility] Interpretation and review of laboratory results Abnormal [facility] Interpretation and review of laboratory results Abnormal [facility] Interpretation and review of laboratory results Normal [facility] Interpretation and review of laboratory results Abnormal [facility] Interpretation and review of laboratory results Abnormal [facility] Interpretation and review of laboratory results Abnormal [facility] Source Of Oxygen 30% Oxygen [facility] alth [facility] Interpretation and review of laboratory results Abnormal [facility] Bands Manual 2 [facility] Lymphocytes Manual 7 [facility] Monocytes Manual 0 [facility] alth Neutrophils Manual 90 [facility] No Panel InformationOrdered By: Tanisha Main on 08-13-2024 Interpretation and review of laboratory results Abnormal [facility] mecA/C (MRSE/MRSL) Detected Abnormal Not Detected [facility] Staphylococcus epidermidis Detected Abnormal Not Detected [facility] Nursing Noteon 08-13-2024 Nursing Note Normal [facility] PHOSPHORUSon 08-13-2024 Phosphate [Mass/Vol] 3.0 mg/dL Normal 2.5-4.5 [facility] Comment on above: Performed By: #### L AB15, [id number], [id number] ####[employer] Architect: MARY SOTELO ([id number])[facility] ([facility])[address] [place] [address] PROTIME AND APTTon aPTT Coag (Bld) [Time] 29.6 s Normal 20.0-30.5 [facility] Comment on above: Performed By: #### L [id number] ####[employer] Architect: MARY SOTELO ([id number])[facility] ([facility])[address] [place] [address] INR Coag (PPP) [Relative time] 1.0 {INR} Normal 0.9-1.1 [facility] Comment on above: Result Comment: Elias mmended Anticoagulant Therapy: SEE BELOW----- INR of 2.0 - 3.0 : - Prophylaxis of Venous Thrombosis (high-risk surgery) - Treatment of Venous Thrombosis - Treatment of Pulmonary Embolism (Includes tissue heart valves, Acute Myocardial Infarction to prevent systemic embolism, Valvular Heart Disease, and Atrial Fibrillation)----- INR of 2.5 - 3.5 : - Mechanical Prosthetic Valves (high risk) - If oral anticoagulant therapy is used to prevent Myocardial Infarction Performed By: #### L [id number] ####[employer] Architect: MARY SOTELO ([id number])[facility] ([facility])[address] [place] [address] PT Coag (PPP) [Time] 11.6 s Normal 9.0-12.0 [facility] Comment on above: Performed By: #### L [id number] ####[employer] Architect: MARY SOTELO ([id number])[facility] ([facility])[address] [place] [address] Progress Noteon 08-13-2024 Progress Note Chart reviewed, as I was notified via [facility] of patient's readmission to [facility] yesterday (08/12) with altered mental status. Closing patient's transitional program at this time d/t her readmission. Normal [facility] Progress Note Normal [facility] Progress Note Normal [facility] RESPIRATORY PATHOGENS PANEL BY PCRon 08-13-2024 RESPIRATORY PATHOGENS PANEL BY PCR Normal [facility] Comment on above: Performed By: #### L [id number] ####[employer] Architect: MARY SOTELO ([id number])[facility] ([facility])[address] [place] [address] Respiratory pathogens DNA an d RNA panel MARISA+non-probe (Nph)on 08-13-2024 Adenovirus Not detected Not Detected [facility] B. pertussis DNA MARISA+probe Ql (Unsp spec) Not detected Not Detected [facility] Bordetella parapertussis Not detected Not Detected [facility] Chlamydia pneumoniae Not detected Not Detected [facility] Coronavirus 229E Not detected Not Detected [facility] Coronavirus HKU1 Not detected Not Detected [facility] Coronavirus NL63 Not detected Not Detected [facility] Coronavirus OC43 Not detected Not Detected [facility] FLUAV RNA MARISA+non-probe Ql (Nph) Not detected Not Detected [facility] FLUBV RNA MARISA+non-probe Ql (Nph) Not detected Not Detected [facility] Human Metapneumovirus Not detected Not Detected [facility] Human Rhinovirus/Enterovirus Not detected Not Detected [facility] Interpretation and review of laboratory results Normal [facility] Mycoplasma pneumoniae Not detected Not Detected [facility] Parainfluenza 1 Not detected Not Detected [facility] Parainfluenza 2 Not detected Not Detected [facility] Parainfluenza 3 Not detected Not Detected [facility] Parainfluenza 4 Not detected Not Detected [facility] Respiratory Syncytial Virus Not detected Not Detected [facility] SARS-CoV-2 (COVID-19) RNA MARISA+non-probe Ql (Nph) Not detected Not Detected [facility] TROPONIN Ion 08-13-2024 Troponin I.cardiac [Mass/Vol] 0.074 ng/mL High <0.034 [facility] Comment on above: Result Comment: BINA Olivarez COMMENTS:Patients with high levels of Biotin oral intake (ie >5 mg/day) may have falsely decreased Troponin levels. Performed By: #### L [id number] ####[employer] Architect: MARY SOTELO ([id number])[address] Troponin I.cardiac [Mass/Vol] 0.070 ng/mL High <0.034 [facility] Comment on above: Result Comment: BINA Olivarez COMMENTS:Patients with high levels of Biotin oral intake (ie >5 mg/day) may have falsely decreased Troponin levels. Performed By: #### L [id number] ####[employer] Architect: MARY SOTELO ([id number])[facility])[address] [place] [address] [place] Troponin I.cardiac [Mass/Vol] 0.073 ng/mL High <0.034 [facility] Comment on above: Result Comment: BINA Olivarez COMMENTS:Patients with high levels of Biotin oral intake (ie >5 mg/day) may have falsely decreased Troponin levels. Performed By: #### L [id number] ####[employer] Architect: MARY SOTELO ([id number])[facility])[address] [place] [address] TROPONIN, WITH SERIAL REFLEX on 08-13-2024 Troponin I.cardiac [Mass/Vol] 0.065 ng/mL High <0.034 [facility] Comment on above: Result Comment: BINA Olivarez COMMENTS:Patients with high levels of Biotin oral intake (ie >5 mg/day) may have falsely decreased Troponin levels. Performed By: #### L AB89, [id number], [id number], [id number] ####[employer] Architect: MARY SOTELO ([id number])[facility] ([facility])[address] [place] [address] Troponin I.cardiac [Mass/Vol ]on 08-13-2024 Interpretation and review of laboratory results Abnormal [facility] Interpretation and review of laboratory results Abnormal [facility] Interpretation and review of laboratory results Abnormal [facility] Interpretation and review of laboratory results Abnormal [facility] URINE CULTUREon 08-13-2024 Bacteria identified Cx Nom (U) Normal [facility] Comment on above: Performed By: #### L [id number] ####[employer] Architect: MARY SOTELO ([id number])[facility] ([facility])[address] [place] [address] Urinalysis complete panel (U )on 08-13-2024 Bacteria LM.HPF (Urine sed) [#/Area] Few Abnormal Negative /HPF [facility] Bilirubin Ql (U) Negative Negative mg/dL [facility] Clarity (U) Extra Turbid Abnormal Clear [facility] Color (U) Yellow Lt. Yellow [facility] Epithelial cells.squamous LM.HPF (Urine sed) [#/Area] 0-2 [facility] Glucose Ql (U) Normal Normal (<70) mg/dL [facility] Hemoglobin Ql (U) 0.2 mg/dL Abnormal Negative [facility] Interpretation and review of laboratory results Abnormal [facility] Ketones (U) [Mass/Vol] Trace Abnormal Negat pawan mg/dL [facility] Leukocyte clumps LM.HPF (Urine sed) [#/Area] Occasional Abnormal Negative /HPF [facility] Leukocyte esterase Test strip Ql (U) 500 Abnormal Negative Bere/uL [facility] Mucus LM.HPF (Urine sed) [#/Area] Few Negative /LPF [facility] Nitrite Ql (U) Negative Negative [facility] Non-Squamous Epithalial Cells, Urine 0-2 Abnormal Negative /HPF [facility] pH (U) 5.5 [pH] 5.0 - 8.0 pH [facility] Protein (U) [Mass/Vol] 100 mg/dL Abnormal Negative [facility] RBC LM.HPF (Urine sed) [#/Area] 11-25 Abnormal [facility] Specific gravity (U) [Rel density] 1.021 1.005 - 1.030 [facility] Urobilinogen (U) [Mass/Vol] Normal Normal (0-1) mg/dL [facility] WBC LM.HPF (Urine sed) [#/Area] /[HPF] Abnormal [facility] Yeast.budding LM.HPF (Urine sed) [#/Area] Many Abnormal Negative /HPF [facility] BASIC METABOLIC PANELon 10-1 0-2023 Anion gap [Moles/Vol] 4 mmol/L Normal 3-13 [facility] Comment on above: Performed By: #### L [id number], [id number], [id number] ####[employer] Architect: MARY SOTELO ([id number])[address] Calcium [Mass/Vol] 6.6 mg/dL Low 8.4-10.4 [facility] Comment on above: Performed By: #### L [id number], [id number], [id number] ####[employer] Architect: MARY SOTELO ([id number])[address] Chloride [Moles/Vol] 100 mmol/L Normal 98-107 [facility] Comment on above: Performed By: #### L [id number], LAB15, [id number] ####[employer] Architect: MARY SOTELO ([id number])[facility] [place] [address] [place] CO2 [Moles/Vol] 28 mmol/L Normal 22-30 [facility] Comment on above: Performed By: #### L [id number], [id number], [id number] ####[employer] Architect: MARY SOTELO ([id number])[facility])[address] [place] [address] Creatinine [Mass/Vol] 2.38 mg/dL High 0.52-1.04 [facility] Comment on above: Performed By: #### L [id number], LAB15, [id number] ####[employer] Architect: MARY SOTELO ([id number])[facility])[address] [place] [address] GLOMERULAR FILTRATION RATE ML/MIN/1.73 SQ M.PREDICTED 22.3 mL/min/1.73m*2 Low >60.0 [facility] Comment on above: Result Comment: Calc ulation based on the Chronic Kidney Disease Epidemiology Collaboration (CKD-EPI) equation refit without adjustment for race Performed By: #### L [id number], LAB15, [id number] ####[employer] Architect: MARY SOTELO ([id number])[facility])[address] [place] [address] Glucose [Mass/Vol] 229 mg/dL High 70-100 [facility] Comment on above: Performed By: #### L [id number], LAB15, [id number] ####[employer] Architect: MARY SOTELO ([id number])[facility])[address] [place] [address] Potassium [Moles/Vol] 3.6 mmol/L Normal 3.5-5.1 [facility] Comment on above: Performed By: #### L [id number], LAB15, [id number] ####[employer] Architect: MARY SOTELO ([id number])[facility])[address] [place] [address] Sodium [Moles/Vol] 132 mmol/L Low 135-145 [facility] Comment on above: Performed By: #### L [id number], LAB15, [id number] ####Ob[employer] Architect: MARY SOTELO ([id number])[facility] ([facility])[address] [place] [address] Urea nitrogen [Mass/Vol] 19 mg/dL High 7-17 [facility] Comment on above: Performed By: #### L [id number], LAB15, [id number] ####[employer] Architect: MARY SOTELO ([id number])[facility] ([facility])[address] [place] [address] BLOOD CULTUREon 08-12-2024 Bacteria identified Cx Nom (Bld) Normal [facility] Comment on above: Performed By: #### L [id number] ####[employer] Architect: MARY SOTELO ([id number])[facility])[address] [place] [address] Performed By: #### L [id number], [id number] ####[employer] Architect: MARY SOTELO ([id number])[facility])[address] [place] [address] BLOOD CULTURE IDENTIFICATION - AEROBICon 08-12-2024 BLOOD CULTURE IDENTIFICATION - AEROBIC Normal [facility] Comment on above: Performed By: #### L [id number], [id number] ####[employer] Architect: MARY SOTELO ([id number])[facility])[address] [place] [address] BLOOD GAS, VENOUSon 08-12-20 24 Base excess Calc (BldV) [Moles/Vol] -2.5000 mmol/L Normal -3.0-3.0 [facility] Comment on above: Performed By: #### L [id number] ####[employer] Architect: MARY SOTELO ([id number])[facility])[address] [place] [address] CO2 [Moles/Vol] 26.1 mmol/L Normal 24.0-28.0 [facility] Comment on above: Performed By: #### L AB79 ####[employer] Architect: MARY SOTELO ([id number])[facility] [place] [address] HCO3 (Bld) [Moles/Vol] 24.5 mmol/L Normal 23.0-27.0 [facility] Comment on above: Performed By: #### L [id number] ####[employer] Architect: MARY SOTELO ([id number])[facility])[address] [place] [address] Hemoglobin (Bld) [Mass/Vol] 9.6 g/dL Normal Screen only [facility] Comment on above: Performed By: #### L [id number] ####[employer] Architect: MARY SOTELO ([id number])[facility])[address] [place] [address] OXYGEN (MM HG) IN VENOUS BLOOD 57.8 mm Hg Normal [facility] Comment on above: Performed By: #### L AB79 ####[employer] Architect: MARY SOTELO ([id number])[facility])[address] [place] [address] OXYGEN SATURATION (%) IN VENOUS BLOOD 89.0 % Normal [facility] Comment on above: Performed By: #### L [id number] ####[employer] Architect: MARY SOTELO ([id number])[facility])[address] [place] [address] PCO2, ROHIT 53.4 mm Hg Normal 40.0-55.0 [facility] Comment on above: Performed By: #### L AB79 ####[employer] Architect: MARY SOTELO ([id number])[facility])[address] [place] [address] PH VENOUS 7.279 Low 7.330-7.430 [facility] Comment on above: Performed By: #### L AB79 ####[employer] Architect: MARY SOTELO ([id number])[facility])[address] [place] [address] SOURCE OF OXYGEN 30% Oxygen Normal [facility] Comment on above: Result Comment: BINA Olivarez COMMENTS:Assessment of oxygenation is best done with an arterial blood gas determination. Reference ranges for pO2, bicarbonate, and base excess are for mixed venous blood. Specimens drawn from a peripheral vein will often have higher values. Performed By: #### L AB79 ####[employer] Architect: MARY SOTELO ([id number])[facility] ([facility])[address] [place] [address] Base excess Calc (BldV) [Moles/Vol] -1.4000 mmol/L Normal -3.0-3.0 [facility] Comment on above: Performed By: #### L AB79 ####[employer] Architect: MARY SOTELO ([id number])[facility])[address] [place] [address] CO2 [Moles/Vol] 27.7 mmol/L Normal 24.0-28.0 [facility] Comment on above: Performed By: #### L AB79 ####[employer] Architect: MARY SOTELO ([id number])[facility])[address] [place] [address] HCO3 (Bld) [Moles/Vol] 25.9 mmol/L Normal 23.0-27.0 [facility] Comment on above: Performed By: #### L AB79 ####Ob[employer] Architect: MARY SOTELO ([id number])[facility])[address] [place] [address] Hemoglobin (Bld) [Mass/Vol] 7.7 g/dL Normal Screen only [facility] Comment on above: Performed By: #### L AB79 ####[employer] Architect: MARY SOTELO ([id number])[facility])[address] [place] [address] OXYGEN (MM HG) IN VENOUS BLOOD 73.2 mm Hg Normal [facility] Comment on above: Performed By: #### L AB79 ####Ob[employer] Architect: MARY SOTELO ([id number])[facility] ([facility])[address] [place] [address] OXYGEN SATURATION (%) IN VENOUS BLOOD 94.9 % Normal [facility] Comment on above: Performed By: #### L AB79 ####Ob[employer] Architect: MARY SOTELO ([id number])[facility])[address] [place] [address] PCO2, ROHIT 58.7 mm Hg High 40.0-55.0 [facility] Comment on above: Performed By: #### L AB79 ####[employer] Architect: MARY SOTELO ([id number])[facility])[address] [place] [address] PH VENOUS 7.262 Low 7.330-7.430 [facility] Comment on above: Performed By: #### L AB79 ####[employer] Architect: MARY SOTELO ([id number])[facility])[address] [place] [address] SOURCE OF OXYGEN Bi-PAP Normal [facility] Comment on above: Result Comment: BINA Olivarez COMMENTS:Interpret with caution, PO2 value falsely increased due to vacuum in tube. For accurate results, please draw in a syringe.Assessment of oxygenation is best done with an arterial blood gas determination. Reference ranges for pO2, bicarbonate, and base excess are for mixed venous blood. Specimens drawn from a peripheral vein will often have higher values. Performed By: #### L AB79 ####[employer] Architect: MARY SOTELO ([id number])[facility] ([facility])[address] [place] [address] Base excess Calc (BldV) [Moles/Vol] -0.7000 mmol/L Normal -3.0-3.0 [facility] Comment on above: Performed By: #### L AB79 ####[employer] Architect: MARY SOTELO ([id number])[facility] ([facility])[address] [place] [address] CO2 [Moles/Vol] 33.5 mmol/L High 24.0-28.0 [facility] Comment on above: Performed By: #### L AB79 ####[employer] Architect: MARY SOTELO ([id number])[facility])[address] [place] [address] HCO3 (Bld) [Moles/Vol] 30.4 mmol/L High 23.0-27.0 [facility] Comment on above: Performed By: #### L AB79 ####[employer] Architect: MARY SOTELO ([id number])[facility] ([facility])[address] [place] [address] Hemoglobin (Bld) [Mass/Vol] 9.1 g/dL Normal Screen only [facility] Comment on above: Performed By: #### L AB79 ####[employer] Architect: MARY SOTELO ([id number])[facility] ([facility])[address] [place] [address] OXYGEN (MM HG) IN VENOUS BLOOD 44.4 mm Hg Normal [facility] Comment on above: Performed By: #### L AB79 ####[employer] Architect: MARY SOTELO ([id number])[facility])[address] [place] [address] OXYGEN SATURATION (%) IN VENOUS BLOOD 74.5 % Normal [facility] Comment on above: Performed By: #### L AB79 ####[employer] Architect: MARY SOTELO ([id number])[facility] ([facility])[address] [place] [address] [place] PCO2, ROHTI 101.8 mm Hg High 40.0-55.0 [facility] Comment on above: Performed By: #### L AB79 ####[employer] Architect: MARY SOTELO ([id number])[facility])[address] [place] [address] PH VENOUS 7.093 Low 7.330-7.430 [facility] Comment on above: Performed By: #### L AB79 ####[employer] Architect: MARY SOTELO ([id number])[facility])[address] [place] [address] SOURCE OF OXYGEN Nasal cannula Normal [facility] Comment on above: Result Comment: Huey Schilling COMMENTS:Assessment of oxygenation is best done with an arterial blood gas determination. Reference ranges for pO2, bicarbonate, and base excess are for mixed venous blood. Specimens drawn from a peripheral vein will often have higher values.Interpret with caution, pO2 value falsely increased due to vacuum in tube. For accurate results, please draw on a syringe. Performed By: #### L AB79 ####[employer] Architect: MARY SOTELO ([id number])[facility])[address] [place] [address] BLOOD TYPE AND SCREEN GELon 08-12-2024 ABO GROUPING O Normal [facility] Comment on above: Performed By: #### L [id number] ####[employer] Architect: MARY SOTELO ([id number])[facility] ([facility])[address] [place] [address] RH TYPE IN BLOOD Positive Normal [facility] Comment on above: Performed By: #### L [id number] ####[employer] Architect: MARY SOTELO ([id number])[facility] ([facility])[address] [place] [address] CBC WITH AUTO DIFFERENTIALon 08-12-2024 Basophils (Bld) [#/Vol] 0.0 10*3/uL Normal 0.0-0.2 [facility] Comment on above: Performed By: #### L [id number], [id number] ####[employer] Architect: MARY SOTELO ([id number])[facility])[address] [place] [address] Basophils/100 WBC (Bld) 0.8 % Normal 0.0-2.0 [facility] Comment on above: Performed By: #### L [id number], [id number] ####[employer] Architect: MARY SOTELO ([id number])[facility])[address] [place] [address] Eosinophils (Bld) [#/Vol] 0.1 10*3/uL Normal 0.0-0.5 [facility] Comment on above: Performed By: #### L [id number], [id number] ####[employer] Architect: MARY SOTELO ([id number])[facility])[address] [place] [address] Eosinophils/100 WBC (Bld) 2.9 % Normal 0.0-6.0 [facility] Comment on above: Performed By: #### Dora AB296 [id number] ####[employer] Architect: MARY SOTELO ([id number])[address] Erythrocyte distribution width (RBC) [Ratio] 16.4 % High 11.5-15.0 [facility] Comment on above: Performed By: #### Dora [id number], [id number] ####[employer] Architect: MARY SOTELO ([id number])[address] Hematocrit (Bld) [Volume fraction] 22.3 % Low 35.0-47.0 [facility] Comment on above: Performed By: #### Dora AB296 [id number] ####[employer] Architect: MARY SOTELO ([id number])[address] Hemoglobin (Bld) [Mass/Vol] 6.9 g/dL Critically low 11.7-16.0 [facility] Comment on above: Performed By: #### Dora AB296 [id number] ####[employer] Architect: MARY SOTELO ([id number])[address] IMMATURE GRANS % 0.5 % Normal 0.0-2.0 [facility] Comment on above: Performed By: #### Dora AB296 [id number] ####[employer] Architect: MARY SOTELO ([id number])[address] IMMATURE GRANS ABSOLUTE 0.0 10*3/uL Normal <0.1 [facility] Comment on above: Performed By: #### L [id number], [id number] ####[employer] Architect: MARY SOTELO ([id number])[address] IPF 4 Normal [facility] Comment on above: Performed By: #### L [id number], [id number] ####[employer] Architect: MARY SOTELO ([id number])[facility])[address] [place] [address] Lymphocytes (Bld) [#/Vol] 0.6 10*3/uL Low 1.0-4.3 [facility] Comment on above: Performed By: #### L [id number], [id number] ####[employer] Architect: MARY SOTELO ([id number])[facility])[address] [place] [address] Lymphocytes/100 WBC (Bld) 14.8 % Low 15.0-45.0 [facility] Comment on above: Performed By: #### L AB296, [id number] ####[employer] Architect: MARY SOTELO ([id number])[facility])[address] [place] [address] MCH (RBC) [Entitic mass] 28.9 pg Normal 26.0-34.0 [facility] Comment on above: Performed By: #### L AB296, [id number] ####Ob[employer] Architect: MARY SOTELO ([id number])[facility])[address] [place] [address] MCHC 30.9 % Normal 30.5-36.0 [facility] Comment on above: Performed By: #### L [id number], [id number] ####Ob[employer] Architect: MARY SOTELO ([id number])[facility])[address] [place] [address] MCV (RBC) [Entitic vol] 93.3 fL Normal 77.0-99.0 [facility] Comment on above: Performed By: #### L AB296, [id number] ####[employer] Architect: MARY SOTELO ([id number])[facility])[address] [place] [address] Monocytes (Bld) [#/Vol] 0.2 10*3/uL Normal 0.0-0.9 [facility] Comment on above: Performed By: #### L AB296, [id number] ####Ob[employer] Architect: MARY SOTELO ([id number])[facility])[address] [place] [address] Monocytes/100 WBC (Bld) 5.0 % Normal 5.0-13.0 [facility] Comment on above: Performed By: #### L [id number], [id number] ####[employer] Architect: MARY SOTELO ([id number])[facility] ([facility])[address] [place] [address] NEUTROPHILS ABSOLUTE 2.9 10*3/uL Normal 1.8-7.5 [facility] Comment on above: Performed By: #### Dora AB296, [id number] ####[employer] Architect: MARY SOTELO ([id number])[facility] ([facility])[address] [place] [address] Neutrophils/100 WBC (Bld) 76.0 % Normal 38.0-82.0 [facility] Comment on above: Performed By: #### Dora AB296, [id number] ####[employer] Architect: MARY SOTELO ([id number])[facility] ([facility])[address] [place] [address] NRBC 0.0 /100 WBCs Normal 0.0-2.0 [facility] Comment on above: Performed By: #### Dora AB296, [id number] ####Ob[employer]e [employer] Architect: MARY SOTELO ([id number])[facility] ([facility])[address] [place] [address] Platelet mean volume (Bld) [Entitic vol] 10.6 fL Normal 9.0-12.7 [facility] Comment on above: Performed By: #### L AB296, [id number] ####[employer] Architect: MARY SOTELO ([id number])[facility])[address] [place] [address] Platelets (Bld) [#/Vol] 85 10*3/uL Low 140-440 [facility] Comment on above: Performed By: #### L [id number], [id number] ####[employer] Architect: MARY SOTELO ([id number])[facility] ([facility])[address] [place] [address] RBC (Bld) [#/Vol] 2.39 10*6/uL Low 3.80-5.20 [facility] Comment on above: Performed By: #### L AB296, [id number] ####[employer] Architect: MARY SOTELO ([id number])[facility])[address] [place] [address] WBC (Bld) [#/Vol] 3.8 10*3/uL Normal 3.6-10.7 [facility] Comment on above: Performed By: #### L AB296, [id number] ####[employer] Architect: MARY SOTELO ([id number])[facility] ([facility])[address] [place] [address] Basophils (Bld) [#/Vol] 0.0 10*3/uL Normal 0.0-0.2 [facility] Comment on above: Performed By: #### L [id number] ####[employer] Architect: MARY SOTELO ([id number])[facility])[address] [place] [address] Basophils/100 WBC (Bld) 0.8 % Normal 0.0-2.0 [facility] Comment on above: Performed By: #### L [id number] ####[employer] Architect: MARY SOTELO ([id number])[facility])[address] [place] [address] Eosinophils (Bld) [#/Vol] 0.1 10*3/uL Normal 0.0-0.5 [facility] Comment on above: Performed By: #### L [id number] ####[employer] Architect: MARY SOTELO ([id number])[facility])[address] [place] [address] Eosinophils/100 WBC (Bld) 2.5 % Normal 0.0-6.0 [facility] Comment on above: Performed By: #### L [id number] ####[employer] Architect: MARY SOTELO ([id number])[facility] ([facility])[address] [place] [address] Erythrocyte distribution width (RBC) [Ratio] 16.5 % High 11.5-15.0 [facility] Comment on above: Performed By: #### L [id number] ####[employer] Architect: MARY SOTELO ([id number])[facility])[address] [place] [address] Hematocrit (Bld) [Volume fraction] 26.5 % Low 35.0-47.0 [facility] Comment on above: Performed By: #### L [id number] ####[employer] Architect: MARY SOTELO ([id number])[facility])[address] [place] [address] Hemoglobin (Bld) [Mass/Vol] 7.9 g/dL Low 11.7-16.0 [facility] Comment on above: Performed By: #### L [id number] ####[employer] Architect: MARY SOTELO ([id number])[facility])[address] [place] [address] IMMATURE GRANS % 0.6 % Normal 0.0-2.0 [facility] Comment on above: Performed By: #### L [id number] ####Ob[employer] Architect: MARY SOTELO ([id number])[facility])[address] [place] [address] IMMATURE GRANS ABSOLUTE 0.0 10*3/uL Normal <0.1 [facility] Comment on above: Performed By: #### L [id number] ####Ob[employer] Architect: MARY SOTELO ([id number])[facility])[address] [place] [address] IPF 5 Normal [facility] Comment on above: Performed By: #### L [id number] ####[employer] Architect: MARY SOTELO ([id number])[facility])[address] [place] [address] Lymphocytes (Bld) [#/Vol] 1.3 10*3/uL Normal 1.0-4.3 [facility] Comment on above: Performed By: #### L [id number] ####[employer] Architect: MARY SOTELO ([id number])[facility])[address] [place] [address] Lymphocytes/100 WBC (Bld) 27.1 % Normal 15.0-45.0 [facility] Comment on above: Performed By: #### L [id number] ####[employer] Architect: MARY SOTELO ([id number])[facility])[address] [place] [address] MCH (RBC) [Entitic mass] 28.4 pg Normal 26.0-34.0 [facility] Comment on above: Performed By: #### L [id number] ####[employer] Architect: MARY SOTELO ([id number])[facility])[address] [place] [address] MCHC 29.8 % Low 30.5-36.0 [facility] Comment on above: Performed By: #### L [id number] ####[employer] Architect: MARY SOTELO ([id number])[facility])[address] [place] [address] MCV (RBC) [Entitic vol] 95.3 fL Normal 77.0-99.0 [facility] Comment on above: Performed By: #### L [id number] ####[employer] Architect: MARY SOTELO ([id number])[facility])[address] [place] [address] Monocytes (Bld) [#/Vol] 0.6 10*3/uL Normal 0.0-0.9 [facility] Comment on above: Performed By: #### L [id number] ####[employer] Architect: MARY SOTELO ([id number])[facility])[address] [place] [address] Monocytes/100 WBC (Bld) 13.4 % High 5.0-13.0 [facility] Comment on above: Performed By: #### L [id number] ####Ob[employer] Architect: MARY SOTELO ([id number])[facility])[address] [place] [address] NEUTROPHILS ABSOLUTE 2.7 10*3/uL Normal 1.8-7.5 [facility] Comment on above: Performed By: #### L [id number] ####[employer] Architect: MARY SOTELO ([id number])[facility])[address] [place] [address] Neutrophils/100 WBC (Bld) 55.6 % Normal 38.0-82.0 [facility] Comment on above: Performed By: #### L [id number] ####[employer] Architect: MARY SOTEOL ([id number])[facility])[address] [place] [address] NRBC 0.0 /100 WBCs Normal 0.0-2.0 [facility] Comment on above: Performed By: #### L [id number] ####[employer] Architect: MARY SOTELO ([id number])[facility])[address] [place] [address] Platelet mean volume (Bld) [Entitic vol] 11.3 fL Normal 9.0-12.7 [facility] Comment on above: Performed By: #### L [id number] ####[employer] Architect: MARY SOTELO ([id number])[facility])[address] [place] [address] [place] Platelets (Bld) [#/Vol] 89 10*3/uL Low 140-440 [facility] Comment on above: Performed By: #### L [id number] ####[employer] Architect: MARY STOELO ([id number])[facility])[address] [place] [address] [place] RBC (Bld) [#/Vol] 2.78 10*6/uL Low 3.80-5.20 [facility] Comment on above: Performed By: #### L [id number] ####[employer] Architect: MARY SOTELO ([id number])[facility])[address] [place] [address] WBC (Bld) [#/Vol] 4.8 10*3/uL Normal 3.6-10.7 [facility] Comment on above: Performed By: #### L [id number] ####Ob[employer] Architect: MARY SOTELO ([id number])[facility])[address] [place] [address] COMPREHENSIVE METABOLIC PANE [place] 08-12-2024 Albumin [Mass/Vol] 2.9 g/dL Low 3.5-5.0 [facility] Comment on above: Performed By: #### L [id number] ####Ob[employer] Architect: MARY SOTELO ([id number])[facility])[address] [place] [address] ALP [Catalytic activity/Vol] 52 U/L Normal 38-126 [facility] Comment on above: Performed By: #### L [id number] ####Ob[employer] Architect: MARY SOTELO ([id number])[facility] ([facility])[address] [place] [address] ALT [Catalytic activity/Vol] 13 U/L Normal 0-34 [facility] Comment on above: Performed By: #### L [id number] ####Ob[employer] Architect: MARY SOTELO ([id number])[facility] ([facility])[address] [place] [address] Anion gap [Moles/Vol] 7 mmol/L Normal 3-13 [facility] Comment on above: Performed By: #### L [id number] ####Ob[employer] Architect: MARY SOTELO ([id number])[facility] ([facility])[address] [place] [address] AST [Catalytic activity/Vol] 18 U/L Normal 15-46 [facility] Comment on above: Performed By: #### L [id number] ####Ob[employer] Architect: MARY SOTELO ([id number])[facility])[address] [place] [address] Bilirubin [Mass/Vol] 0.9 mg/dL Normal 0.2-1.3 [facility] Comment on above: Performed By: #### L [id number] ####Ob[employer]e [employer] Solution Architect: MARY SOTELO ([id number])[facility] ([facility] [place] [address] Calcium [Mass/Vol] 6.9 mg/dL Low 8.4-10.4 [facility] Comment on above: Performed By: #### L AB17 ####Obiee Obia Solution Architect: MARY SOTELO ([id number])[facility] ([facility])[address] [place] [address] [place] Chloride [Moles/Vol] 100 mmol/L Normal 98-107 [facility] Comment on above: Performed By: #### L AB17 ####Obiee Obia Solution Architect: MARY SOTELO ([id number])[facility] ([facility])[address] [place] [address] CO2 [Moles/Vol] 22 mmol/L Normal 22-30 [facility] Comment on above: Performed By: #### L AB17 ####Obiee Obia Solution Architect: MARY SOTELO ([id number])[facility] ([facility])[address] [place] [address] Creatinine [Mass/Vol] 2.56 mg/dL High 0.52-1.04 [facility] Comment on above: Performed By: #### L AB17 ####Obiee Obia Solution Architect: MARY SOTELO ([id number])[facility] ([facility])[address] [place] [address] [place] GLOMERULAR FILTRATION RATE ML/MIN/1.73 SQ M.PREDICTED 20.4 mL/min/1.73m*2 Low >60.0 [facility] Comment on above: Result Comment: Calc ulation based on the Chronic Kidney Disease Epidemiology Collaboration (CKD-EPI) equation refit without adjustment for race Performed By: #### L AB17 ####Obiee Obia Solution Architect: MARY SOTELO ([id number])[facility] ([facility])[address] [place] [address] [place] Glucose [Mass/Vol] 220 mg/dL High 70-100 [facility] Comment on above: Performed By: #### L AB17 ####Obiee Obia Solution Architect: MARY SOTELO ([id number])[facility] ([facility])[address] [place] [address] Potassium [Moles/Vol] 4.2 mmol/L Normal 3.5-5.1 [facility] Comment on above: Performed By: #### L AB17 ####Obiee Obia Solution Architect: MARY SOTELO ([id number])[facility])[address] [place] [address] Protein [Mass/Vol] 5.2 g/dL Low 6.3-8.2 [facility] Comment on above: Performed By: #### L AB17 ####Obiee Obia Solution Architect: MARY SOTELO ([id number])[facility])[address] [place] [address] Sodium [Moles/Vol] 130 mmol/L Low 135-145 [facility] Comment on above: Performed By: #### L AB17 ####Obiee Obia Solution Architect: MARY SOTELO ([id number])[facility] ([facility])[address] [place] [address] Urea nitrogen [Mass/Vol] 20 mg/dL High 7-17 [facility] Comment on above: Performed By: #### L AB17 ####Obiee Obia Solution Architect: MARY SOTELO ([id number])[facility])[address] [place] [address] CT HEAD NECK ANGIO W AND WO IV CONTRASTon 08-12-2024 CT HEAD NECK ANGIO W AND WO IV CONTRAST Normal [facility] CT HEAD WO IV CONTRASTon CT HEAD WO IV CONTRAST Normal [facility] CT HEAD WO IV CONTRAST Normal [facility] CT Head WO contraston [address] evidence of an acute intracranial abnormality. Previous small right frontal convexity subdural hemorrhage is no longer identified. New left greater than right mastoid effusions, nonspecific. No evidence of coalescence. Left middle ear effusion. Correlate with symptoms to exclude any potential infectious or inflammatory process. Report Dictated on Electronically Signed By: Reece Mckinley MD Electronically Signed Date/Time: 08/12/2024 8:18 AM EDT [facility] 1960 [id number] Exam Date/Time: 08/11/2024 15:35 Procedure: CT HEAD WO IV CONTRAST Ordering Provider: SOLIS BRANDON Reason For Exam: s06.5x0 EXAMINATION: CT HEAD WO IV CONTRAST HISTORY: Follow-up of subdural hemorrhage. TECHNIQUE: CT head without contrast. Dose reduction was employed with automated exposure control. COMPARISON: Head CT 07/26/2024 RESULT: Acute change: No evidence of an acute intracranial process. Hemorrhage: Previous small right frontal convexity subdural hemorrhage is no longer identified and either resolved or evolved (decreased in quantity and attenuation). No acute interval hyperattenuating hemorrhage. Mass Lesion / Mass Effect: No evidence of an intracranial mass, extra-axial fluid collection, or significant localized mass effect. Chronic change: No apparent parenchymal changes. Atherosclerotic calcifications of the carotid siphons. Parenchyma: There is no significant volume loss. Ventricles: Normal caliber and morphology. Other: New large left and moderate right mastoid effusions. No evidence of coalescence. Left middle ear effusion. The calvarium, skull base, imaged paranasal sinuses, mastoids, orbits and extracranial soft tissues are unremarkable. [facility] Reece Mckinley MD - 08/12/2024 Patient Name: [facility] DEN[facility] : 1960 [id number] Exam Date/Time: 08/11/2024 15:35 Procedure: CT HEAD WO IV CONTRAST Ordering Provider: SOLIS BRANDON Reason For Exam: s06.5x0 EXAMINATION: CT HEAD WO IV CONTRAST HISTORY: Follow-up of subdural hemorrhage. TECHNIQUE: CT head without contrast. Dose reduction was employed with automated exposure control. COMPARISON: Head CT 07/26/2024 RESULT: Acute change: No evidence of an acute intracranial process. Hemorrhage: Previous small right frontal convexity subdural hemorrhage is no longer identified and either resolved or evolved (decreased in quantity and attenuation). No acute interval hyperattenuating hemorrhage. Mass Lesion / Mass Effect: No evidence of an intracranial mass, extra-axial fluid collection, or significant localized mass effect. Chronic change: No apparent parenchymal changes. Atherosclerotic calcifications of the carotid siphons. Parenchyma: There is no significant volume loss. Ventricles: Normal caliber and morphology. Other: New large left and moderate right mastoid effusions. No evidence of coalescence. Left middle ear effusion. The calvarium, skull base, imaged paranasal sinuses, mastoids, orbits and extracranial soft tissues are unremarkable. IMPRESSION: No CT evidence of an acute intracranial abnormality. Previous small right frontal convexity subdural hemorrhage is no longer identified. New left greater than right mastoid effusions, nonspecific. No evidence of coalescence. Left middle ear effusion. Correlate with symptoms to exclude any potential infectious or inflammatory process. Report Dictated on Electronically Signed By: Reece Mckinley MD Electronically Signed Date/Time: 08/12/2024 8:18 AM EDT [facility] CT Head WO contrastOrdered B y: Reece Mckinley on 08-12-2024 [facility] Work Phone: CT PERFUSIONon 08-12-2024 CT PERFUSION Normal [facility] Consulton 08-12-2024 Consult Normal [facility] ECG 12-LEADon 08-12-2024 ECG 12-LEAD IMPRESSION: Sinus rhythm Consider left ventricular hypertrophy Electronically Signed On 08-12-2024 18:40:59 EDT by Fabrizio Guillory Normal [facility] ED Nursing Noteon 08-12-2024 ED Nursing Note Report given to Jordon Doan RN 08/12/24 1634 Normal [facility] ED Nursing Note ICU at bedside. Clari Bronson RN 08/12/24 1517 Normal [facility] ED Provider Noteon ED Provider Note Normal [facility] FERRITINon 08-12-2024 Ferritin [Mass/Vol] 231 ng/mL Normal 11-264 [facility] Comment on above: Performed By: #### L AB69, LAB68, [id number], LAB67 ####Obiee Obia Solution Architect: MARY SOTELO ([id number])[facility] ([address] FOLATEon 08-12-2024 FOLATE RESULT 10.8 ng/mL Normal >=2.9 [facility] Comment on above: Performed By: #### L AB69, LAB68, [id number], LAB67 ####Obiee Obia Solution Architect: MARY SOTELO ([id number])[facility] ([facility])[address] [place] [address] IDNon 08-12-2024 IDN Normal [facility] IRON AND TIBCon 08-12-2024 IRON BINDING CAPACITY 158 ug/dL Low 261-497 [facility] Comment on above: Performed By: #### L [id number] ####Obiee Obia Solution Architect: MARY SOTELO ([id number])[facility] ([facility])[address] [place] [address] IRON SATURATION 45 % Normal 15-50 [facility] Comment on above: Performed By: #### L [id number] ####Obiee Obia Solution Architect: MARY SOTELO ([id number])[facility] ([facility])[address] [place] [address] IRON, TOTAL 71 ug/dL Normal 37-170 [facility] Comment on above: Performed By: #### L [id number] ####Obiee Obia Solution Architect: MARY SOTELO ([id number])[facility] ([facility])[address] [place] [address] LACTIC ACID WITH REFLEXon Lactate [Moles/Vol] 1.6 mmol/L Normal 0.7-2.0 [facility] Comment on above: Performed By: #### L [id number] ####Obiee Obia Solution Architect: MARY SOTELO ([id number])[facility] ([facility])[address] [place] [address] NT PRO BNPon 08-12-2024 NT PRO BNP >84836 High <125 [facility] Comment on above: Performed By: #### L [id number], LAB15, [id number] ####Obiee Obia Solution Architect: MARY SOTELO ([id number])[facility] ([facility])[address] [place] [address] Nursing Noteon 08-12-2024 Nursing Note Normal [facility] RETICULOCYTESon 08-12-2024 Reticulocytes/100 RBC (Bld) 2.41 % Normal [facility] Comment on above: Result Comment: Newb orn < 5%Adults 0.4 - 2.0% Performed By: #### L AB296, [id number] ####Obiee Obia Solution Architect: MARY SOTELO ([id number])[facility])[address] [place] [address] [place] TROPONIN Ion 08-12-2024 Troponin I.cardiac [Mass/Vol] 0.052 ng/mL High <0.034 [facility] Comment on above: Result Comment: BINA R COMMENTS:Patients with high levels of Biotin oral intake (ie >5 mg/day) may have falsely decreased Troponin levels. Performed By: #### L AB69, LAB68, [id number], LAB67 ####Obiee Obia Solution Architect: MARY SOTELO ([id number])[facility])[address] [place] [address] Troponin I.cardiac [Mass/Vol] 0.046 ng/mL High <0.034 [facility] Comment on above: Result Comment: BINA R COMMENTS:Patients with high levels of Biotin oral intake (ie >5 mg/day) may have falsely decreased Troponin levels. Performed By: #### L [id number] ####Obiee Obia Solution Architect: MARY SOTELO ([id number])[facility])[address] [place] [address] [place] TROPONIN, WITH SERIAL REFLEX on 08-12-2024 Troponin I.cardiac [Mass/Vol] 0.046 ng/mL High <0.034 [facility] Comment on above: Result Comment: BINA R COMMENTS:Patients with high levels of Biotin oral intake (ie >5 mg/day) may have falsely decreased Troponin levels. Performed By: #### L [id number], LAB15, [id number] ####Obiee Obia Solution Architect: MARY SOTELO ([id number])[facility] ([facility])[address] [place] [address] VITAMIN B12on 10-10-2024 Cobalamin (Vitamin B12) [Mass/Vol] 932 pg/mL High 239-931 [facility] Comment on above: Performed By: #### L AB69, LAB68, [id number], LAB67 ####Obiee Obia Solution Architect: MARY SOTELO ([id number])[facility] ([facility])[address] [place] [address] [place] CARECOORDon 08-11-2024 [facility] Patient Choice Patient Name: SANDY DENG Date of : 1960 Normal [facility] CT Head WO contraston 2023 Radiology Study observation (narrative) [facility] Progress Noteon 08-11-2024 Progress Note Normal [facility] BASIC METABOLIC PANELon Anion gap [Moles/Vol] 2 mmol/L Low 3-13 [facility] Comment on above: Performed By: #### L AB113, [id number], LAB15 ####Obiee Obia Solution Architect: MARY SOTELO ([id number])[facility] ([facility])[address] [place] [address] [place] Calcium [Mass/Vol] 6.6 mg/dL Low 8.4-10.4 [facility] Comment on above: Performed By: #### L AB113, [id number], LAB15 ####Obiee Obia Solution Architect: MARY SOTELO ([id number])[facility] ([facility])[address] [place] [address] [place] Chloride [Moles/Vol] 102 mmol/L Normal 98-107 [facility] Comment on above: Performed By: #### L AB113, [id number], LAB15 ####Obiee Obia Solution Architect: MARY SOTELO ([id number])[facility] ([facility])[address] [place] [address] [place] CO2 [Moles/Vol] 33 mmol/L High 22-30 [facility] Comment on above: Performed By: #### L AB113, JYE132, LAB15 ####Obiee Obia Solution Architect: MARY SOTELO ([id number])[facility] ([facility])[address] [place] [address] Creatinine [Mass/Vol] 2.85 mg/dL High 0.52-1.04 [facility] Comment on above: Performed By: #### L AB113, [id number], LAB15 ####Obiee Obia Solution Architect: MARY SOTELO ([id number])[facility] ([facility])[address] [place] [address] GLOMERULAR FILTRATION RATE ML/MIN/1.73 SQ M.PREDICTED 17.9 mL/min/1.73m*2 Low >60.0 [facility] Comment on above: Result Comment: Calc ulation based on the Chronic Kidney Disease Epidemiology Collaboration (CKD-EPI) equation refit without adjustment for race Performed By: #### Dora AB113, [id number], LAB15 ####Obiee Obia Solution Architect: MARY SOTELO ([id number])[facility] ([facility])[address] [place] [address] Glucose [Mass/Vol] 110 mg/dL High 70-100 [facility] Comment on above: Performed By: #### Dora AB113, [id number], LAB15 ####Obiee Obia Solution Architect: MARY SOTELO ([id number])[facility] ([facility])[address] [place] [address] Potassium [Moles/Vol] 4.2 mmol/L Normal 3.5-5.1 [facility] Comment on above: Performed By: #### L AB113, [id number], LAB15 ####Obiee Obia Solution Architect: MARY SOTELO ([id number])[facility] ([facility])[address] [place] [address] [place] Sodium [Moles/Vol] 138 mmol/L Normal 135-145 [facility] Comment on above: Performed By: #### L AB113, [id number], LAB15 ####Obiee Obia Solution Architect: MARY SOTELO ([id number])[facility])[address] [place] [address] [place] Urea nitrogen [Mass/Vol] 25 mg/dL High 7-17 [facility] Comment on above: Performed By: #### L AB113, [id number], LAB15 ####Obiee Obia Solution Architect: MARY SOTELO ([id number])[facility] ([facility])[address] [place] [address] Basic metabolic 1998 panelon 08-10-2024 Anion gap [Moles/Vol] 2 mmol/L Low 3 - 13 mmol/L [facility] Calcium [Mass/Vol] 6.6 mg/dL Low 8.4 - 10. 4 mg/dL [facility] Chloride [Moles/Vol] 102 mmol/L 98 - 10 7 mmol/L [facility] CO2 [Moles/Vol] 33 mmol/L High 22 - 30 mmol/L [facility] Creatinine [Mass/Vol] 2.85 mg/dL High 0.52 - 1.04 mg/dL [facility] GFR/1.73 sq M.predicted (S/P/Bld) [Vol rate/Area] 17.9 mL/min Low - PINF [facility] Glucose [Mass/Vol] 110 mg/dL High 70 - 100 mg/dL [facility] Interpretation and review of laboratory results Abnormal [facility] Potassium [Moles/Vol] 4.2 mmol/L 3.5 - 5.1 mmol/L [facility] Sodium [Moles/Vol] 138 mmol/L 135 - 145 mmol/L [facility] Urea nitrogen [Mass/Vol] 25 mg/dL High 7 - 17 mg/dL [facility] C3, BLOODon 08-10-2024 C3, BLOOD 64 mg/dL Low 88-165 [facility] Comment on above: Performed By: #### L AB151, [id number] ####Obiee Obia Solution Architect: MARLENY GUZMÁN ([id number])[facility] ([facility])[address] C4 COMPLEMENTon 08-10-2024 C4, BLOOD 13 mg/dL Low 14-44 [facility] Comment on above: Performed By: #### L AB151, [id number] ####Obiee Obia Solution Architect: MARLENY GUZMÁN ([id number])[facility] ([facility])[address] CARECOORDon 08-10-2024 [facility] Normal [facility] CAR[place]OORD Normal [facility] CARECOHOBART Transportation set v ia cot through [facility] for today 08-10-24 @2pm to [facility]. TCC, RN, Communications Billing Analyst, facility, Pt, and Pt's Jose notified. Normal [facility] [place] Discharge med list transmitted to [facility]- [facility] via [facility] per TCC request. Normal [facility] [place] She is approved 08/09-08/16 to [facility], etiology teacher to send mar today . Med team notified of auth and need discharge orders . Done. SW to arrange transport today . [facility] CBC W Auto Differential pane l (Bld)on 08-10-2024 Basophils (Bld) [#/Vol] 0.0 10*3/uL 0.0 - 0.2 10*3/uL [facility] Basophils/100 WBC (Bld) 0.2 % 0.0 - 2.0 % [facility] Eosinophils (Bld) [#/Vol] 0.3 10*3/uL 0.0 - 0.5 10*3/uL [facility] Eosinophils/100 WBC (Bld) 5.2 % 0.0 - 6.0 % [facility] Erythrocyte distribution width (RBC) [Ratio] 17.2 % High 11.5 - 15.0 % [facility] Hematocrit (Bld) [Volume fraction] 26.2 % Low 35.0 - 47.0 % [facility] Hemoglobin (Bld) [Mass/Vol] 7.8 g/dL Low 11.7 - 16.0 g/dL [facility] Immature granulocytes (Bld) [#/Vol] 0.1 10*3/uL High NINF - 0.1 10*3/uL [facility] Immature granulocytes/100 WBC (Bld) 0.8 % 0.0 - 2.0 % [facility] Interpretation and review of laboratory results Abnormal [facility] IPF 4 [facility] Lymphocytes (Bld) [#/Vol] 1.0 10*3/uL 1.0 - 4.3 10*3/uL [facility] Lymphocytes/100 WBC (Bld) 16.2 % 15.0 - 45.0 % [facility] MCH (RBC) [Entitic mass] 28.5 pg 26.0 - 34.0 pg [facility] MCHC (RBC) [Mass/Vol] 29.8 % Low 30.5 - 36.0 % [facility] MCV (RBC) [Entitic vol] 95.6 fL 77.0 - 99.0 fL [facility] Monocytes (Bld) [#/Vol] 0.4 10*3/uL 0.0 - 0.9 10*3/uL [facility] Monocytes/100 WBC (Bld) 6.2 % 5.0 - 13.0 % [facility] Neutrophils (Bld) [#/Vol] 4.3 10*3/uL 1.8 - 7.5 10*3/uL [facility] Neutrophils/100 WBC (Bld) 71.4 % 38.0 - 82.0 % [facility] Nucleated RBC/100 WBC (Bld) [Ratio] 0.0 % [facility] Platelet mean volume (Bld) [Entitic vol] 10.7 fL 9.0 - 12.7 fL [facility] Platelets (Bld) [#/Vol] 95 10*3/uL Low 140 - 440 10*3/uL [facility] RBC (Bld) [#/Vol] 2.74 10*6/uL Low 3.80 - 5.2 0 10*6/uL [facility] WBC (Bld) [#/Vol] 6.0 10*3/uL 3.6 - 10.7 10*3/uL [facility] CBC WITH AUTO DIFFERENTIALon 08-10-2024 Basophils (Bld) [#/Vol] 0.0 10*3/uL Normal 0.0-0.2 [facility] Comment on above: Performed By: #### L [id number] ####Obiee Obia Solution Architect: MARY SOTELO ([id number])[facility] ([address] Basophils/100 WBC (Bld) 0.2 % Normal 0.0-2.0 [facility] Comment on above: Performed By: #### L [id number] ####Obiee Obia Solution Architect: MARY SOTELO ([id number])[facility])[address] [place] [address] Eosinophils (Bld) [#/Vol] 0.3 10*3/uL Normal 0.0-0.5 [facility] Comment on above: Performed By: #### L [id number] ####Obiee Obia Solution Architect: MARY SOTELO ([phone])[facility])[address] [place] [address] Eosinophils/100 WBC (Bld) 5.2 % Normal 0.0-6.0 [facility] Comment on above: Performed By: #### L [id number] ####Obiee Obia Solution Architect: MARY SOTELO ([id number])[address] Erythrocyte distribution width (RBC) [Ratio] 17.2 % High 11.5-15.0 [facility] Comment on above: Performed By: #### L [id number] ####Obiee Obia Solution Architect: MARY SOTELO ([id number])[address] Hematocrit (Bld) [Volume fraction] 26.2 % Low 35.0-47.0 [facility] Comment on above: Performed By: #### L [id number] ####Obiee Ob[employer] Solution Architect: MARY SOTELO ([id number])[address] Hemoglobin (Bld) [Mass/Vol] 7.8 g/dL Low 11.7-16.0 [facility] Comment on above: Performed By: #### L [id number] ####Obiee Obia Solution Architect: MARY SOTELO ([id number])[address] IMMATURE GRANS % 0.8 % Normal 0.0-2.0 [facility] Comment on above: Performed By: #### L [id number] ####Obiee Obia Solution Architect: MARY SOTELO ([id number])[facility] ([facility])[address] [place] [address] IMMATURE GRANS ABSOLUTE 0.1 10*3/uL High <0.1 [facility] Comment on above: Performed By: #### L [id number] ####Obiee Obia Solution Architect: MARY SOTELO ([id number])[facility])[address] [place] [address] IPF 4 Normal [facility] Comment on above: Performed By: #### L [id number] ####Obiee Obia Solution Architect: MARY SOTELO ([id number])[facility])[address] [place] [address] Lymphocytes (Bld) [#/Vol] 1.0 10*3/uL Normal 1.0-4.3 [facility] Comment on above: Performed By: #### L [id number] ####Obiee [employer]ia Solution Architect: MARY SOTELO ([id number])[address] Lymphocytes/100 WBC (Bld) 16.2 % Normal 15.0-45.0 [facility] Comment on above: Performed By: #### L [id number] ####Obiee Obia Solution Architect: MARY SOTELO ([id number])[facility])[address] [place] [address] MCH (RBC) [Entitic mass] 28.5 pg Normal 26.0-34.0 [facility] Comment on above: Performed By: #### L [id number] ####Obiee Obia Solution Architect: MARY SOTELO ([id number])[address] MCHC 29.8 % Low 30.5-36.0 [facility] Comment on above: Performed By: #### L [id number] ####Obiee Obia Solution Architect: MARY SOTELO ([id number])[facility])[address] [place] [address] MCV (RBC) [Entitic vol] 95.6 fL Normal 77.0-99.0 [facility] Comment on above: Performed By: #### L [id number] ####Obiee Obia Solution Architect: MARY SOTELO ([id number])[facility] ([facility])[address] [place] [address] Monocytes (Bld) [#/Vol] 0.4 10*3/uL Normal 0.0-0.9 [facility] Comment on above: Performed By: #### L [id number] ####Obiee Obia Solution Architect: MARY SOTELO ([id number])[facility] ([facility])[address] [place] [address] Monocytes/100 WBC (Bld) 6.2 % Normal 5.0-13.0 [facility] Comment on above: Performed By: #### L [id number] ####Obiee [employer]ia Solution Architect: MARY SOTELO ([id number])[facility] ([facility])[address] [place] [address] NEUTROPHILS ABSOLUTE 4.3 10*3/uL Normal 1.8-7.5 [facility] Comment on above: Performed By: #### L [id number] ####Obiee [employer] Solution Architect: MARY SOTELO ([id number])[facility] ([facility])[address] [place] [address] Neutrophils/100 WBC (Bld) 71.4 % Normal 38.0-82.0 [facility] Comment on above: Performed By: #### L [id number] ####Obiee [employer] Solution Architect: MARY SOTELO ([id number])[facility] ([facility])[address] [place] [address] NRBC 0.0 /100 WBCs Normal 0.0-2.0 [facility] Comment on above: Performed By: #### L [id number] ####Obiee [employer] Solution Architect: MARY SOTELO ([id number])[facility])[address] [place] [address] Platelet mean volume (Bld) [Entitic vol] 10.7 fL Normal 9.0-12.7 [facility] Comment on above: Performed By: #### L [id number] ####Obiee Obia Solution Architect: MARY SOTELO ([id number])[facility] [place] [address] [place] Platelets (Bld) [#/Vol] 95 10*3/uL Low 140-440 [facility] [facility] Comment on above: Performed By: #### L [id number] ####[employer] Architect: MARY SOTELO ([id number])[facility] ([facility])[address] [place] [address] RBC (Bld) [#/Vol] 2.74 10*6/uL Low 3.80-5.20 [facility] Comment on above: Performed By: #### L [id number] ####[employer] Architect: MARY SOTELO ([id number])[facility] ([facility])[address] [place] [address] WBC (Bld) [#/Vol] 6.0 10*3/uL Normal 3.6-10.7 [facility] Comment on above: Performed By: #### L [id number] ####[employer] Architect: MARY SOTELO ([id number])[facility] ([facility])[address] [place] [address] GLUCOSE, RANDOMon 08-10-2024 Glucose [Mass/Vol] 61 mg/dL Low 70-100 [facility] Comment on above: Performed By: #### L [id number] ####[employer] Architect: MARY SOTELO ([id number])[facility] ([facility])[address] [place] [address] Glucose (Bld) [Mass/Vol]on 1 Glucose [Mass/Vol] 61 mg/dL Low 70 - 100 mg/dL [facility] Interpretation and review of laboratory results Abnormal [facility] IDNon 08-10-2024 IDN Normal [facility] Laboratory - Chemistry and C hemistry - challengeon 08-10-2024 Glucose [Mass/Vol] 119 mg/dL High 70 - 100 mg/dL [facility] Glucose [Mass/Vol] 109 mg/dL High 70 - 100 mg/dL [facility] Glucose [Mass/Vol] 102 mg/dL High 70 - 100 mg/dL [facility] Glucose [Mass/Vol] 96 mg/dL 70 - 100 mg/dL [facility] Glucose [Mass/Vol] 103 mg/dL High 70 - 100 mg/dL [facility] Glucose [Mass/Vol] 65 mg/dL Low 70 - 100 mg/dL [facility] Magnesium [Mass/Vol] 1.8 mg/dL 1.6 - 2 .3 mg/dL [facility] Laboratory - Hematology and Cell countson 08-10-2024 Complement C3 [Mass/Vol] 64 mg/dL Low 88 - 165 mg/dL [facility] Complement C4 [Mass/Vol] 13 mg/dL Low 14 - 44 mg/dL [facility] MAGNESIUMon 08-10-2024 Magnesium [Mass/Vol] 1.8 mg/dL Normal 1.6-2.3 [facility] Comment on above: Performed By: #### L AB113, [id number], LAB15 ####[employer] Architect: MARY SOTELO ([id number])[facility] ([address] No Panel Informationon 08-10 Interpretation and review of laboratory results Abnormal [facility] Interpretation and review of laboratory results Abnormal [facility] Interpretation and review of laboratory results Abnormal [facility] Interpretation and review of laboratory results Abnormal [facility] Interpretation and review of laboratory results Abnormal [facility] Interpretation and review of laboratory results Normal [facility] Interpretation and review of laboratory results Abnormal [facility] Interpretation and review of laboratory results Abnormal [facility] Interpretation and review of laboratory results Normal [facility] Nursing Noteon 08-10-2024 Nursing Note Report called to delores Syed at [facility]. This RN verified with Dr. Espana that pt is leaving with johnson catheter. Normal [facility] Nursing Note Normal [facility] PHOSPHORUSon 08-10-2024 Phosphate [Mass/Vol] 4.5 mg/dL Normal 2.5-4.5 [facility] Comment on above: Performed By: #### L AB113, [id number], LAB15 ####[employer] Architect: MARY SOTELO ([id number])[facility] ([facility])[address] [place] [address] [place] Phosphate [Moles/Vol]on Phosphate [Mass/Vol] 4.5 mg/dL 2.5 - 4 .5 mg/dL [facility] Progress Noteon 08-10-2024 Progress Note Normal [facility] Progress Note Normal [facility] BASIC METABOLIC PANELon Anion gap [Moles/Vol] 1 mmol/L Low 3-13 [facility] Comment on above: Performed By: #### L AB113, [id number], LAB15 ####Ob[employer]e [employer] Architect: MARY SOTELO ([id number])[facility] [place] [address] Calcium [Mass/Vol] 6.9 mg/dL Low 8.4-10.4 [facility] Comment on above: Performed By: #### L AB113, [id number], LAB15 ####[employer] Architect: MARY SOTELO ([id number])[facility] ([facility])[address] [place] [address] [place] Chloride [Moles/Vol] 105 mmol/L Normal 98-107 [facility] Comment on above: Performed By: #### L AB113, [id number], LAB15 ####Ob[employer] Architect: MARY SOTELO ([id number])[facility] [place] [address] [place] CO2 [Moles/Vol] 30 mmol/L Normal 22-30 [facility] Comment on above: Performed By: #### L AB113, [id number], LAB15 ####[employer] Architect: MARY SOTELO ([id number])[facility] [place] [address] [place] Creatinine [Mass/Vol] 2.30 mg/dL High 0.52-1.04 [facility] Comment on above: Performed By: #### L AB113, [id number], LAB15 ####Ob[employer]e [employer] Architect: MARY SOTELO ([id number])[facility])[address] [place] [address] GLOMERULAR FILTRATION RATE ML/MIN/1.73 SQ M.PREDICTED 23.2 mL/min/1.73m*2 Low >60.0 [facility] Comment on above: Result Comment: Calc ulation based on the Chronic Kidney Disease Epidemiology Collaboration (CKD-EPI) equation refit without adjustment for race Performed By: #### L AB113, [id number], LAB15 ####[employer] Architect: MARY SOTELO ([id number])[facility])[address] [place] [address] Glucose [Mass/Vol] 69 mg/dL Low 70-100 [facility] Comment on above: Performed By: #### Dora AB113, [id number], LAB15 ####Ob[employer] Architect: MARY SOTELO ([id number])[facility])[address] [place] [address] Potassium [Moles/Vol] 4.3 mmol/L Normal 3.5-5.1 [facility] Comment on above: Performed By: #### L AB113, [id number], LAB15 ####[employer] Architect: MARY SOTELO ([id number])[facility])[address] [place] [address] Sodium [Moles/Vol] 136 mmol/L Normal 135-145 [facility] Comment on above: Performed By: #### L AB113, [id number], LAB15 ####[employer] Architect: MARY SOTELO ([id number])[facility])[address] [place] [address] Urea nitrogen [Mass/Vol] 22 mg/dL High 7-17 [facility] Comment on above: Performed By: #### L AB113, [id number], LAB15 ####[employer] Architect: MARY SOTELO ([id number])[facility])[address] [place] [address] Basic metabolic 1998 panelon 08-09-2024 Anion gap [Moles/Vol] 1 mmol/L Low 3 - 13 mmol/L [facility] Calcium [Mass/Vol] 6.9 mg/dL Low 8.4 - 10. 4 mg/dL [facility] Chloride [Moles/Vol] 105 mmol/L 98 - 10 7 mmol/L [facility] CO2 [Moles/Vol] 30 mmol/L 22 - 30 mmol/L [facility] Creatinine [Mass/Vol] 2.30 mg/dL High 0.52 - 1.04 mg/dL [facility] GFR/1.73 sq M.predicted (S/P/Bld) [Vol rate/Area] 23.2 mL/min Low - PINF [facility] Glucose [Mass/Vol] 69 mg/dL Low 70 - 100 mg/dL [facility] Interpretation and review of laboratory results Abnormal [facility] Potassium [Moles/Vol] 4.3 mmol/L 3.5 - 5.1 mmol/L [facility] Sodium [Moles/Vol] 136 mmol/L 135 - 145 mmol/L [facility] Urea nitrogen [Mass/Vol] 22 mg/dL High 7 - 17 mg/dL [facility] CARECOORDon 08-09-2024 CARECOHOBART Normal [facility] Normal [facility] CBC W Auto Differential pane l (Bld)on 08-09-2024 Basophils (Bld) [#/Vol] 0.0 10*3/uL 0.0 - 0.2 10*3/uL [facility] Basophils/100 WBC (Bld) 0.4 % 0.0 - 2.0 % [facility] Eosinophils (Bld) [#/Vol] 0.3 10*3/uL 0.0 - 0.5 10*3/uL [facility] Eosinophils/100 WBC (Bld) 4.3 % 0.0 - 6.0 % [facility] Erythrocyte distribution width (RBC) [Ratio] 17.2 % High 11.5 - 15.0 % [facility] Hematocrit (Bld) [Volume fraction] 26.6 % Low 35.0 - 47.0 % [facility] Hemoglobin (Bld) [Mass/Vol] 8.1 g/dL Low 11.7 - 16.0 g/dL [facility] Immature granulocytes (Bld) [#/Vol] 0.1 10*3/uL High NINF - 0.1 10*3/uL [facility] Immature granulocytes/100 WBC (Bld) 0.8 % 0.0 - 2.0 % [facility] Interpretation and review of laboratory results Abnormal [facility] IPF 3 [facility] Lymphocytes (Bld) [#/Vol] 1.3 10*3/uL 1.0 - 4.3 10*3/uL [facility] Lymphocytes/100 WBC (Bld) 17.0 % 15.0 - 45.0 % [facility] MCH (RBC) [Entitic mass] 28.8 pg 26.0 - 34.0 pg [facility] MCHC (RBC) [Mass/Vol] 30.5 % 30.5 - 36.0 % [facility] MCV (RBC) [Entitic vol] 94.7 fL 77.0 - 99.0 fL [facility] Monocytes (Bld) [#/Vol] 0.5 10*3/uL 0.0 - 0.9 10*3/uL [facility] Monocytes/100 WBC (Bld) 6.1 % 5.0 - 13.0 % [facility] Neutrophils (Bld) [#/Vol] 5.5 10*3/uL 1.8 - 7.5 10*3/uL [facility] Neutrophils/100 WBC (Bld) 71.4 % 38.0 - 82.0 % [facility] Nucleated RBC/100 WBC (Bld) [Ratio] 0.0 % [facility] Platelet mean volume (Bld) [Entitic vol] 10.5 fL 9.0 - 12.7 fL [facility] Platelets (Bld) [#/Vol] 108 10*3/uL Low 140 - 440 10*3/uL [facility] RBC (Bld) [#/Vol] 2.81 10*6/uL Low 3.80 - 5.2 0 10*6/uL [facility] WBC (Bld) [#/Vol] 7.7 10*3/uL 3.6 - 10.7 10*3/uL [facility] CBC WITH AUTO DIFFERENTIALon 08-09-2024 Basophils (Bld) [#/Vol] 0.0 10*3/uL Normal 0.0-0.2 [facility] Comment on above: Performed By: #### L [id number] ####[employer] Architect: MARY SOTELO ([id number])[place] [address] [place] Basophils/100 WBC (Bld) 0.4 % Normal 0.0-2.0 [facility] Comment on above: Performed By: #### L [id number] ####[employer] Architect: MARY SOTELO ([id number])[facility])[address] [place] [address] Eosinophils (Bld) [#/Vol] 0.3 10*3/uL Normal 0.0-0.5 [facility] Comment on above: Performed By: #### L [id number] ####Ob[employer] Architect: MARY SOTELO ([id number])[facility])[address] [place] [address] Eosinophils/100 WBC (Bld) 4.3 % Normal 0.0-6.0 [facility] Comment on above: Performed By: #### L [id number] ####[employer] Architect: MARY SOTELO ([id number])[facility])[address] [place] [address] Erythrocyte distribution width (RBC) [Ratio] 17.2 % High 11.5-15.0 [facility] Comment on above: Performed By: #### L [id number] ####Ob[employer]e [employer] Architect: MARY SOTELO ([id number])[facility])[address] [place] [address] Hematocrit (Bld) [Volume fraction] 26.6 % Low 35.0-47.0 [facility] Comment on above: Performed By: #### L [id number] ####[employer] Architect: MARY SOTELO ([id number])[facility])[address] [place] [address] Hemoglobin (Bld) [Mass/Vol] 8.1 g/dL Low 11.7-16.0 [facility] Comment on above: Performed By: #### L [id number] ####Ob[employer]e [employer] Architect: MARY SOTELO ([id number])[facility])[address] [place] [address] IMMATURE GRANS % 0.8 % Normal 0.0-2.0 [facility] Comment on above: Performed By: #### L [id number] ####Ob[employer]e [employer] Solution Architect: MARY OSTELO ([id number])[facility])[address] [place] [address] IMMATURE GRANS ABSOLUTE 0.1 10*3/uL High <0.1 [facility] Comment on above: Performed By: #### L [id number] ####Ob[employer]e [employer] Architect: MARY SOTELO ([id number])[facility])[address] [place] [address] IPF 3 Normal [facility] Comment on above: Performed By: #### L [id number] ####[employer] Architect: MARY SOTELO ([id number])[address] Lymphocytes (Bld) [#/Vol] 1.3 10*3/uL Normal 1.0-4.3 [facility] Comment on above: Performed By: #### L [id number] ####[employer] Architect: MARY SOTELO ([id number])[address] Lymphocytes/100 WBC (Bld) 17.0 % Normal 15.0-45.0 [facility] Comment on above: Performed By: #### L [id number] ####Ob[employer]e [employer] Solution Architect: MARY SOTELO ([id number])[address] MCH (RBC) [Entitic mass] 28.8 pg Normal 26.0-34.0 [facility] Comment on above: Performed By: #### L [id number] ####Ob[employer]e [employer] Architect: MARY SOTELO ([id number])[address] MCHC 30.5 % Normal 30.5-36.0 [facility] Comment on above: Performed By: #### L [id number] ####Ob[employer]e [employer] Solution Architect: MARY SOTELO ([id number])[facility] [address] MCV (RBC) [Entitic vol] 94.7 fL Normal 77.0-99.0 [facility] Comment on above: Performed By: #### L [id number] ####Ob[employer]e [employer] Architect: MARY SOTELO ([id number])[facility])[address] [place] [address] Monocytes (Bld) [#/Vol] 0.5 10*3/uL Normal 0.0-0.9 [facility] Comment on above: Performed By: #### L [id number] ####Ob[employer] Architect: MARY SOTELO ([id number])[facility])[address] [place] [address] Monocytes/100 WBC (Bld) 6.1 % Normal 5.0-13.0 [facility] Comment on above: Performed By: #### L [id number] ####Ob[employer]e [employer] Architect: MARY SOTELO ([id number])[facility] ([facility])[address] [place] [address] NEUTROPHILS ABSOLUTE 5.5 10*3/uL Normal 1.8-7.5 [facility] Comment on above: Performed By: #### L [id number] ####Ob[employer]e [employer] Solution Architect: MARY SOTELO ([id number])[facility])[address] [place] [address] Neutrophils/100 WBC (Bld) 71.4 % Normal 38.0-82.0 [facility] Comment on above: Performed By: #### L [id number] ####Ob[employer]e [employer] Architect: MARY SOTELO ([id number])[facility] ([facility])[address] [place] [address] NRBC 0.0 /100 WBCs Normal 0.0-2.0 [facility] Comment on above: Performed By: #### L [id number] ####Ob[employer]e [employer] Architect: MARY SOTELO ([id number])[facility] ([facility])[address] [place] [address] Platelet mean volume (Bld) [Entitic vol] 10.5 fL Normal 9.0-12.7 [facility] Comment on above: Performed By: #### L [id number] ####Ob[employer] Architect: MARY SOTELO ([id number])[facility])[address] [place] [address] Platelets (Bld) [#/Vol] 108 10*3/uL Low 140-440 [facility] Comment on above: Performed By: #### L [id number] ####Ob[employer] Architect: MARY SOTELO ([id number])[facility] ([facility])[address] [place] [address] RBC (Bld) [#/Vol] 2.81 10*6/uL Low 3.80-5.20 [facility] Comment on above: Performed By: #### L [id number] ####Ob[employer] Architect: MARY SOTELO ([id number])[facility])[address] [place] [address] WBC (Bld) [#/Vol] 7.7 10*3/uL Normal 3.6-10.7 [facility] Comment on above: Performed By: #### L [id number] ####[employer] Architect: MARY SOTELO ([id number])[facility])[address] [place] [address] COMPLETE URINALYSISon 2023 BACTERIA (#/HPF) IN URINE Moderate Abnormal Negative [facility] Comment on above: Performed By: #### L [id number] ####[employer] Architect: MARY SOTELO ([id number])[facility])[address] [place] [address] BILIRUBIN, TOTAL PRESENCE IN URINE Negative Normal Negative [facility] Comment on above: Performed By: #### L [id number] ####Ob[employer]e [employer] Architect: MARY SOTELO ([id number])[facility])[address] [place] [address] Clarity (U) Extra Turbid Abnormal Clear [facility] Comment on above: Performed By: #### L [id number] ####[employer] Architect: MARY SOTELO ([id number])[facility] [place] [address] Color (U) Yellow Normal Lt. Yellow [facility] Comment on above: Performed By: #### L [id number] ####Ob[employer] Architect: MARY SOTELO ([id number])[facility])[address] [place] [address] Glucose (U) [Mass/Vol] 50 mg/dL Normal Normal (<70) [facility] Comment on above: Performed By: #### L [id number] ####Ob[employer] Architect: MARY SOTELO ([id number])[facility])[address] [place] [address] HEMOGLOBIN PRESENCE IN URINE >1.0 Abnormal Negative [facility] Comment on above: Performed By: #### L [id number] ####Ob[employer] Architect: MARY SOTELO ([id number])[facility])[address] [place] [address] HYALINE CASTS (#/LPF) IN URINE SEDIMENT BY MICROSCOPY Negative Normal Negative [facility] Comment on above: Performed By: #### L [id number] ####[employer] Architect: MARY SOTELO ([id number])[facility] ([facility])[address] [place] [address] Ketones Ql (U) Negative Normal Negative [facility] Comment on above: Performed By: #### L [id number] ####Ob[employer] Architect: MARY SOTELO ([id number])[facility] ([facility])[address] [place] [address] LEUKOCYTE ESTERASE PRESENCE IN URINE BY TEST STRIP 500 Bere/uL Abnormal Negative [facility] Comment on above: Performed By: #### L [id number] ####[employer] Architect: MARY SOTELO ([id number])[facility])[address] [place] [address] NITRITE PRESENCE IN URINE Negative Normal Negative [facility] Comment on above: Performed By: #### L [id number] ####Ob[employer]e [employer] Solution Architect: MARY SOTELO ([id number])[facility] [place] [address] pH (U) 5.0 [pH] Normal 5.0-8.0 [facility] Comment on above: Performed By: #### L [id number] ####Ob[employer] Architect: MARY SOTELO ([id number])[facility] ([facility])[address] [place] [address] Protein (U) [Mass/Vol] 70 mg/dL Abnormal Negative [facility] Comment on above: Performed By: #### L [id number] ####Ob[employer] Architect: MARY SOTELO ([id number])[facility] ([facility])[address] [place] [address] RBC (#/HPF) IN URINE SEDIMENT >100 Abnormal 0-2 [facility] Comment on above: Performed By: #### L [id number] ####[employer] Architect: MARY SOTELO ([id number])[facility] ([facility])[address] [place] [address] Specific gravity (U) [Rel density] 1.007 Normal 1.005-1.030 [facility] Comment on above: Performed By: #### L [id number] ####[employer] Architect: MARY SOTELO ([id number])[facility] ([facility])[address] [place] [address] SQUAMOUS EPITHELIAL CELLS (#/HPF) IN URINE SEDIMENT 3-5 Normal 3-5 [facility] Comment on above: Performed By: #### L [id number] ####[employer] Architect: MARY SOTELO ([id number])[facility] ([facility])[address] [place] [address] UROBILINOGEN (MG/DL) IN URINE Normal Normal Normal (0-1) [facility] Comment on above: Performed By: #### L [id number] ####[employer] Architect: MARY SOTELO ([id number])[facility] ([facility])[address] [place] [address] WBC (LEUKOCYTE) (#/HPF) IN URINE SEDIMENT >100 Abnormal 0-5 [facility] Comment on above: Performed By: #### L [id number] ####[employer] Architect: MARY SOTELO ([id number])[facility] ([facility])[address] [place] [address] WBC (LEUKOCYTE) CLUMPS (#/HPF) IN URINE SEDIMENT Many Abnormal Negative [facility] Comment on above: Performed By: #### L [id number] ####[employer] Architect: MARY SOTELO ([id number])[facility] ([facility])[address] [place] [address] [place] YEAST (#/HPF) IN URINE Loaded Abnormal Negative [facility] Comment on above: Performed By: #### L [id number] ####[employer] Architect: MARY SOTELO ([id number])[facility] ([facility])[address] [place] [address] CREATININE, URINE, RANDOMon 08-09-2024 CREATININE, URINE 41.3 mg/dL Normal No Range [facility] Comment on above: Performed By: #### L [id number], [id number] ####[employer] Architect: MARY SOTELO ([id number])[facility] ([facility])[address] [place] [address] Creatinine (U) [Mass/Vol]on 08-09-2024 CREATININE, URINE 41.3 mg/dL No Range [facility] GLUCOSE, RANDOMon 08-09-2024 Glucose [Mass/Vol] 216 mg/dL High 70-100 [facility] Comment on above: Performed By: #### L [id number] ####[employer] Architect: MARY SOTELO ([id number])[facility] ([facility])[address] [place] [address] [place] Glucose (Bld) [Mass/Vol]on 1 Glucose [Mass/Vol] 216 mg/dL High 70 - 100 mg/dL [facility] Interpretation and review of laboratory results Abnormal [facility] IDNon 08-09-2024 IDN Normal [facility] IDN Normal [facility] Laboratory - Chemistry and C hemistry - challengeon 08-09-2024 Glucose [Mass/Vol] 164 mg/dL High 70 - 100 mg/dL [facility] Glucose [Mass/Vol] 264 mg/dL High 70 - 100 mg/dL [facility] Glucose [Mass/Vol] 246 mg/dL High 70 - 100 mg/dL [facility] Glucose [Mass/Vol] 153 mg/dL High 70 - 100 mg/dL [facility] Glucose [Mass/Vol] 144 mg/dL High 70 - 100 mg/dL [facility] Glucose [Mass/Vol] 115 mg/dL High 70 - 100 mg/dL [facility] Glucose [Mass/Vol] mg/dL Low 70 - 100 mg/dL [facility] Glucose [Mass/Vol] 83 mg/dL 70 - 100 mg/dL [facility] Glucose [Mass/Vol] 70 mg/dL 70 - 100 mg/dL [facility] Glucose [Mass/Vol] mg/dL Low 70 - 100 mg/dL [facility] Magnesium [Mass/Vol] 1.8 mg/dL 1.6 - 2 .3 mg/dL [facility] Laboratory - Urinalysison Protein (U) [Mass/Vol] 107 mg/dL High 0 - 12 mg/dL [facility] MAGNESIUMon 08-09-2024 Magnesium [Mass/Vol] 1.8 mg/dL Normal 1.6-2.3 [facility] Comment on above: Performed By: #### L [id number], [id number], [id number] ####[employer] Architect: MARY SOTELO ([id number])[address] Magnesium [Mass/Vol]on 08-09 Interpretation and review of laboratory results Normal [facility] No Panel Informationon 08-09 Interpretation and review of laboratory results Abnormal [facility] Interpretation and review of laboratory results Abnormal [facility] Interpretation and review of laboratory results Abnormal [facility] Interpretation and review of laboratory results Abnormal [facility] Interpretation and review of laboratory results Abnormal [facility] Interpretation and review of laboratory results Abnormal [facility] Interpretation and review of laboratory results Abnormal [facility] Center Interpretation and review of laboratory results Abnormal [facility] Interpretation and review of laboratory results Normal [facility] Interpretation and review of laboratory results Normal [facility] Interpretation and review of laboratory results Abnormal [facility] Nursing Noteon 08-09-2024 Nursing Note Normal [facility] PHOSPHORUSon 08-09-2024 Phosphate [Mass/Vol] 4.1 mg/dL Normal 2.5-4.5 [facility] Comment on above: Performed By: #### L AB113, [id number], LAB15 ####[employer] Architect: MARY SOTELO ([id number])[facility] [place] [address] [place] PROTEIN, URINE, RANDOMon Protein (U) [Mass/Vol] 107 mg/dL High 0-12 [facility] Comment on above: Performed By: #### L [id number], [id number] ####[employer] Architect: MARY SOTELO ([id number])[facility] ([facility])[address] [place] [address] [place] Phosphate [Moles/Vol]on Interpretation and review of laboratory results Normal [facility] Phosphate [Mass/Vol] 4.1 mg/dL 2.5 - 4 .5 mg/dL [facility] Progress Noteon 08-09-2024 Progress Note Normal [facility] Progress Note Normal [facility] Progress Note Normal [facility] Progress Note Normal [facility] Progress Note Normal [facility] URINE CULTUREon 08-09-2024 Bacteria identified Cx Nom (U) Normal [facility] Comment on above: Performed By: #### L [id number] ####[employer] Architect: MARY SOTELO ([id number])[facility] ([facility])[address] [place] [address] [place] Urinalysis complete panel (U )on 08-09-2024 Bacteria LM.HPF (Urine sed) [#/Area] Moderate Abnormal Negative /HPF [facility] Bilirubin Ql (U) Negative Negative mg/dL [facility] Clarity (U) Extra Turbid Abnormal Clear [facility] Color (U) Yellow Lt. Yellow [facility] Epithelial cells.squamous LM.HPF (Urine sed) [#/Area] 3-5 [facility] Glucose Ql (U) 50 mg/dL Normal (<70) [facility] alth Hemoglobin Ql (U) >1.0 Abnormal Negative mg/dL [facility] Hyaline casts Auto (Urine sed) [#/Area] Negative Negative /LPF [facility] Interpretation and review of laboratory results Abnormal [facility] Ketones (U) [Mass/Vol] Negative Negat pawan mg/dL [facility] Leukocyte clumps LM.HPF (Urine sed) [#/Area] Many Abnormal Negative /HPF [facility] Leukocyte esterase Test strip Ql (U) 500 Abnormal Negative Bere/uL [facility] Nitrite Ql (U) Negative Negative [place] th pH (U) 5.0 [pH] 5.0 - 8.0 pH [facility] Protein (U) [Mass/Vol] 70 mg/dL Abnormal Negative [facility] RBC LM.HPF (Urine sed) [#/Area] /[HPF] Abnormal [facility] Specific gravity (U) [Rel density] 1.007 1.005 - 1.030 [facility] Urobilinogen (U) [Mass/Vol] Normal Normal (0-1) mg/dL [facility] WBC LM.HPF (Urine sed) [#/Area] /[HPF] Abnormal [facility] Yeast.budding LM.HPF (Urine sed) [#/Area] Loaded Abnormal Negative /HPF [facility] ALBUMINon 08-08-2024 Albumin [Mass/Vol] 2.7 g/dL Low 3.5-5.0 [facility] Comment on above: Performed By: #### L AB45, [id number], LAB15, [id number] ####[employer] Architect: MARY STOELO ([id number])[facility])[address] [place] [address] BASIC METABOLIC PANELon Anion gap [Moles/Vol] 2 mmol/L Low 3-13 [facility] Comment on above: Performed By: #### L AB45, [id number], LAB15, [id number] ####[employer] Architect: MARY SOTELO ([id number])[facility] ([facility])[address] [place] [address] Calcium [Mass/Vol] 6.9 mg/dL Low 8.4-10.4 [facility] Comment on above: Performed By: #### L AB45, [id number], LAB15, [id number] ####[employer] Architect: MARY SOTELO ([id number])[facility] ([facility])[address] [place] [address] Chloride [Moles/Vol] 100 mmol/L Normal 98-107 [facility] Comment on above: Performed By: #### L AB45, [id number], LAB15, [id number] ####[employer] Architect: MARY SOTELO ([id number])[facility] ([facility])[address] [place] [address] CO2 [Moles/Vol] 32 mmol/L High 22-30 [facility] Comment on above: Performed By: #### L AB45, [id number], LAB15, [id number] ####[employer] Architect: MARY SOTELO ([id number])[facility] ([facility])[address] [place] [address] Creatinine [Mass/Vol] 1.51 mg/dL High 0.52-1.04 [facility] Comment on above: Performed By: #### L AB45, [id number], LAB15, [id number] ####Ob[employer] Architect: MARY SOTELO ([id number])[facility] ([facility])[address] [place] [address] [place] GLOMERULAR FILTRATION RATE ML/MIN/1.73 SQ M.PREDICTED 38.4 mL/min/1.73m*2 Low >60.0 [facility] Comment on above: Result Comment: Calc ulation based on the Chronic Kidney Disease Epidemiology Collaboration (CKD-EPI) equation refit without adjustment for race Performed By: #### L AB45, [id number], LAB15, [id number] ####[employer] Architect: MARY SOTELO ([id number])[facility] ([facility])[address] [place] [address] [place] Glucose [Mass/Vol] 293 mg/dL High 70-100 [facility] Comment on above: Performed By: #### L AB45, [id number], LAB15, [id number] ####[employer] Architect: MARY SOTELO ([id number])[facility] ([facility])[address] [place] [address] Potassium [Moles/Vol] 3.7 mmol/L Normal 3.5-5.1 [facility] Comment on above: Performed By: #### L AB45, [id number], LAB15, [id number] ####[employer] Architect: MARY SOTELO ([id number])[facility] [place] [address] Sodium [Moles/Vol] 134 mmol/L Low 135-145 [facility] Comment on above: Performed By: #### L AB45, [id number], LAB15, [id number] ####[employer] Architect: MARY SOTELO ([id number])[facility] [place] [address] Urea nitrogen [Mass/Vol] 14 mg/dL Normal 7-17 [facility] Comment on above: Performed By: #### L AB45, [id number], LAB15, IBV915 ####Ob[employer] Architect: MARY SOTELO ([id number])[facility] ([facility])[address] [place] [address] Basic metabolic 1998 panelon 08-08-2024 Anion gap [Moles/Vol] 2 mmol/L Low 3 - 13 mmol/L [facility] Calcium [Mass/Vol] 6.9 mg/dL Low 8.4 - 10. 4 mg/dL [facility] Chloride [Moles/Vol] 100 mmol/L 98 - 10 7 mmol/L [facility] CO2 [Moles/Vol] 32 mmol/L High 22 - 30 mmol/L [facility] Creatinine [Mass/Vol] 1.51 mg/dL High 0.52 - 1.04 mg/dL [facility] GFR/1.73 sq M.predicted (S/P/Bld) [Vol rate/Area] 38.4 mL/min Low - PINF [facility] Glucose [Mass/Vol] 293 mg/dL High 70 - 100 mg/dL [facility] Potassium [Moles/Vol] 3.7 mmol/L 3.5 - 5.1 mmol/L [facility] Sodium [Moles/Vol] 134 mmol/L Low 135 - 145 mmol/L [facility] Urea nitrogen [Mass/Vol] 14 mg/dL 7 - 17 mg/dL [facility] CBC W Auto Differential pane l (Bld)on 08-08-2024 Basophils (Bld) [#/Vol] 0.0 10*3/uL 0.0 - 0.2 10*3/uL [facility] Basophils/100 WBC (Bld) 0.1 % 0.0 - 2.0 % [facility] Eosinophils (Bld) [#/Vol] 0.3 10*3/uL 0.0 - 0.5 10*3/uL [facility] Eosinophils/100 WBC (Bld) 4.0 % 0.0 - 6.0 % [facility] Erythrocyte distribution width (RBC) [Ratio] 17.2 % High 11.5 - 15.0 % [facility] Hematocrit (Bld) [Volume fraction] 28.9 % Low 35.0 - 47.0 % [facility] Hemoglobin (Bld) [Mass/Vol] 8.7 g/dL Low 11.7 - 16.0 g/dL [facility] Immature granulocytes (Bld) [#/Vol] 0.1 10*3/uL High NINF - 0.1 10*3/uL [facility] Immature granulocytes/100 WBC (Bld) 1.3 % 0.0 - 2.0 % [facility] Interpretation and review of laboratory results Abnormal [facility] IPF 3 [facility] Lymphocytes (Bld) [#/Vol] 0.9 10*3/uL Low 1.0 - 4.3 10*3/uL [facility] Lymphocytes/100 WBC (Bld) 11.8 % Low 15.0 - 45.0 % [facility] MCH (RBC) [Entitic mass] 28.8 pg 26.0 - 34.0 pg [facility] MCHC (RBC) [Mass/Vol] 30.1 % Low 30.5 - 36.0 % [facility] MCV (RBC) [Entitic vol] 95.7 fL 77.0 - 99.0 fL [facility] Monocytes (Bld) [#/Vol] 0.3 10*3/uL 0.0 - 0.9 10*3/uL [facility] Monocytes/100 WBC (Bld) 4.5 % Low 5.0 - 13.0 % [facility] Neutrophils (Bld) [#/Vol] 5.9 10*3/uL 1.8 - 7.5 10*3/uL [facility] Neutrophils/100 WBC (Bld) 78.3 % 38.0 - 82.0 % [facility] Nucleated RBC/100 WBC (Bld) [Ratio] 0.0 % [facility] Platelet mean volume (Bld) [Entitic vol] 10.8 fL 9.0 - 12.7 fL [facility] Platelets (Bld) [#/Vol] 118 10*3/uL Low 140 - 440 10*3/uL [facility] RBC (Bld) [#/Vol] 3.02 10*6/uL Low 3.80 - 5.2 0 10*6/uL [facility] WBC (Bld) [#/Vol] 7.6 10*3/uL 3.6 - 10.7 10*3/uL [facility] CBC WITH AUTO DIFFERENTIALon 08-08-2024 Basophils (Bld) [#/Vol] 0.0 10*3/uL Normal 0.0-0.2 [facility] Comment on above: Performed By: #### L [id number] ####[employer] Architect: MARY SOTELO ([id number])[address] Basophils/100 WBC (Bld) 0.1 % Normal 0.0-2.0 [facility] Comment on above: Performed By: #### L [id number] ####[employer] Architect: MARY SOTELO ([id number])[facility])[address] [place] [address] Eosinophils (Bld) [#/Vol] 0.3 10*3/uL Normal 0.0-0.5 [facility] Comment on above: Performed By: #### L [id number] ####[employer] Architect: MARY SOTELO ([id number])[facility])[address] [place] [address] Eosinophils/100 WBC (Bld) 4.0 % Normal 0.0-6.0 [facility] Comment on above: Performed By: #### L [id number] ####[employer] Architect: MARY SOTELO ([id number])[address] Erythrocyte distribution width (RBC) [Ratio] 17.2 % High 11.5-15.0 [facility] Comment on above: Performed By: #### L [id number] ####[employer] Architect: MARY SOTELO ([id number])[address] Hematocrit (Bld) [Volume fraction] 28.9 % Low 35.0-47.0 [facility] Comment on above: Performed By: #### L [id number] ####[employer] Architect: MARY SOTELO ([id number])[address] Hemoglobin (Bld) [Mass/Vol] 8.7 g/dL Low 11.7-16.0 [facility] Comment on above: Performed By: #### L [id number] ####[employer] Architect: MARY SOTELO ([id number])[address] IMMATURE GRANS % 1.3 % Normal 0.0-2.0 [facility] Comment on above: Performed By: #### L [id number] ####[employer] Architect: MARY SOTELO ([id number])[address] IMMATURE GRANS ABSOLUTE 0.1 10*3/uL High <0.1 [facility] Comment on above: Performed By: #### L [id number] ####[employer] Architect: MARY SOTELO ([id number])[address] IPF 3 Normal [facility] Comment on above: Performed By: #### L [id number] ####[employer] Architect: MARY SOTELO ([id number])[address] Lymphocytes (Bld) [#/Vol] 0.9 10*3/uL Low 1.0-4.3 [facility] Comment on above: Performed By: #### L [id number] ####[employer] Architect: MARY SOTELO ([id number])[facility])[address] [place] [address] Lymphocytes/100 WBC (Bld) 11.8 % Low 15.0-45.0 [facility] Comment on above: Performed By: #### L [id number] ####[employer] Architect: MARY SOTELO ([id number])[facility])[address] [place] [address] MCH (RBC) [Entitic mass] 28.8 pg Normal 26.0-34.0 [facility] Comment on above: Performed By: #### L [id number] ####[employer] Architect: MARY SOTELO ([id number])[facility])[address] [place] [address] MCHC 30.1 % Low 30.5-36.0 [facility] Comment on above: Performed By: #### L [id number] ####[employer] Architect: MARY SOTELO ([id number])[facility])[address] [place] [address] MCV (RBC) [Entitic vol] 95.7 fL Normal 77.0-99.0 [facility] Comment on above: Performed By: #### L [id number] ####[employer] Architect: MARY SOTELO ([id number])[facility])[address] [place] [address] Monocytes (Bld) [#/Vol] 0.3 10*3/uL Normal 0.0-0.9 [facility] Comment on above: Performed By: #### L [id number] ####[employer] Architect: MARY SOTELO ([id number])[facility])[address] [place] [address] Monocytes/100 WBC (Bld) 4.5 % Low 5.0-13.0 [facility] Comment on above: Performed By: #### L [id number] ####[employer] Architect: MARY SOTELO ([id number])[facility])[address] [place] [address] NEUTROPHILS ABSOLUTE 5.9 10*3/uL Normal 1.8-7.5 [facility] Comment on above: Performed By: #### L [id number] ####Ob[employer] Architect: MARY SOTELO ([id number])[facility])[address] [place] [address] Neutrophils/100 WBC (Bld) 78.3 % Normal 38.0-82.0 [facility] Comment on above: Performed By: #### L [id number] ####[employer] Architect: MARY SOTELO ([id number])[facility] ([facility])[address] [place] [address] NRBC 0.0 /100 WBCs Normal 0.0-2.0 [facility] Comment on above: Performed By: #### L [id number] ####[employer] Architect: MARY SOTELO ([id number])[facility])[address] [place] [address] Platelet mean volume (Bld) [Entitic vol] 10.8 fL Normal 9.0-12.7 [facility] Comment on above: Performed By: #### L [id number] ####[employer] Architect: MARY SOTELO ([id number])[facility])[address] [place] [address] Platelets (Bld) [#/Vol] 118 10*3/uL Low 140-440 [facility] Comment on above: Performed By: #### L [id number] ####[employer] Architect: MARY SOTELO ([id number])[facility])[address] [place] [address] RBC (Bld) [#/Vol] 3.02 10*6/uL Low 3.80-5.20 [facility] Comment on above: Performed By: #### L [id number] ####[employer] Architect: MARY SOTELO ([id number])[facility] ([facility])[address] [place] [address] WBC (Bld) [#/Vol] 7.6 10*3/uL Normal 3.6-10.7 [facility] Comment on above: Performed By: #### L [id number] ####[employer] Architect: MARY SOTELO ([id number])[facility] ([facility])[address] [place] [address] [place] IDNon 08-08-2024 IDN Normal [facility] IDN Normal [facility] Laboratory - Chemistry and C hemistry - challengeon 08-08-2024 Glucose [Mass/Vol] 218 mg/dL High 70 - 100 mg/dL [facility] Glucose [Mass/Vol] 245 mg/dL High 70 - 100 mg/dL [facility] Glucose [Mass/Vol] 334 mg/dL High 70 - 100 mg/dL [facility] Glucose [Mass/Vol] 314 mg/dL High 70 - 100 mg/dL [facility] Albumin [Mass/Vol] 2.7 g/dL Low 3.5 - 5.0 g/dL [facility] Magnesium [Mass/Vol] 1.7 mg/dL 1.6 - 2 .3 mg/dL [facility] MAGNESIUMon 08-08-2024 Magnesium [Mass/Vol] 1.7 mg/dL Normal 1.6-2.3 [facility] Comment on above: Performed By: #### L AB45, [id number], LAB15, [id number] ####[employer] Architect: MARY SOTELO ([id number])[facility] [place] [address] Magnesium [Mass/Vol]on 08-08 Interpretation and review of laboratory results Normal [facility] No Panel Informationon 08-08 Interpretation and review of laboratory results Abnormal [facility] Interpretation and review of laboratory results Abnormal [facility] Interpretation and review of laboratory results Abnormal [facility] Interpretation and review of laboratory results Abnormal [facility] Interpretation and review of laboratory results Abnormal [facility] Interpretation and review of laboratory results Abnormal [facility] PHOSPHORUSon 08-08-2024 Phosphate [Mass/Vol] 2.1 mg/dL Low 2.5-4.5 [facility] Comment on above: Performed By: #### L AB45, [id number], LAB15, [id number] ####[employer] Architect: MARY SOTELO ([id number])[facility])[address] [place] [address] [place] Phosphate [Moles/Vol]on Phosphate [Mass/Vol] 2.1 mg/dL Low 2.5 - 4 .5 mg/dL [facility] Progress Noteon 08-08-2024 Progress Note Normal [facility] Progress Note Normal [facility] Progress Note Normal [facility] XR CHEST 1 VIEWon 08-08-2024 XR CHEST 1 VIEW Normal [facility] XR Chest Single viewon 08-08 [facility] Radiology Study observation (narrative) [facility] XR Chest Single viewOrdered By: Kalia Foy on 08-08-2024 [facility] Work Phone: BASIC METABOLIC PANELon Anion gap [Moles/Vol] 1 mmol/L Low 3-13 [facility] Comment on above: Performed By: #### L AB103, [id number], LAB15 ####[employer] Architect: MARY SOTELO ([id number])[facility])[address] [place] [address] [place] Calcium [Mass/Vol] 6.9 mg/dL Low 8.4-10.4 [facility] Comment on above: Performed By: #### L AB103, [id number], LAB15 ####[employer] Architect: MARY SOTELO ([id number])[facility])[address] [place] [address] [place] Chloride [Moles/Vol] 102 mmol/L Normal 98-107 [facility] Comment on above: Performed By: #### L AB103, [id number], LAB15 ####[employer] Architect: MARY SOTELO ([id number])[facility] ([facility])[address] [place] [address] [place] CO2 [Moles/Vol] 31 mmol/L High 22-30 [facility] Comment on above: Performed By: #### L AB103, [id number], LAB15 ####[employer] Architect: MARY SOTELO ([id number])[facility])[address] [place] [address] Creatinine [Mass/Vol] 2.07 mg/dL High 0.52-1.04 [facility] Comment on above: Performed By: #### L AB103, [id number], LAB15 ####[employer] Architect: MARY SOTELO ([id number])[facility])[address] [place] [address] GLOMERULAR FILTRATION RATE ML/MIN/1.73 SQ M.PREDICTED 26.3 mL/min/1.73m*2 Low >60.0 [facility] Comment on above: Result Comment: Calc ulation based on the Chronic Kidney Disease Epidemiology Collaboration (CKD-EPI) equation refit without adjustment for race Performed By: #### L AB103, [id number], LAB15 ####[employer] Architect: MARY SOTELO ([id number])[facility])[address] [place] [address] Glucose [Mass/Vol] 141 mg/dL High 70-100 [facility] Comment on above: Performed By: #### L AB103, [id number], LAB15 ####[employer] Architect: MARY SOTELO ([id number])[facility])[address] [place] [address] Potassium [Moles/Vol] 4.2 mmol/L Normal 3.5-5.1 [facility] Comment on above: Performed By: #### L AB103, [id number], LAB15 ####[employer] Architect: MARY SOTELO ([id number])[facility])[address] [place] [address] Sodium [Moles/Vol] 134 mmol/L Low 135-145 [facility] Comment on above: Performed By: #### L AB103, [id number], LAB15 ####[employer] Architect: MARY SOTELO ([id number])[facility] ([facility])[address] [place] [address] Urea nitrogen [Mass/Vol] 23 mg/dL High 7-17 [facility] Comment on above: Performed By: #### L AB103, [id number], LAB15 ####[employer] Architect: MARY SOTELO ([id number])[facility] ([facility])[address] [place] [address] Basic metabolic 1998 panelon 08-07-2024 Anion gap [Moles/Vol] 1 mmol/L Low 3 - 13 mmol/L [facility] Calcium [Mass/Vol] 6.9 mg/dL Low 8.4 - 10. 4 mg/dL [facility] Chloride [Moles/Vol] 102 mmol/L 98 - 10 7 mmol/L [facility] CO2 [Moles/Vol] 31 mmol/L High 22 - 30 mmol/L [facility] Creatinine [Mass/Vol] 2.07 mg/dL High 0.52 - 1.04 mg/dL [facility] GFR/1.73 sq M.predicted (S/P/Bld) [Vol rate/Area] 26.3 mL/min Low - PINF [facility] Glucose [Mass/Vol] 141 mg/dL High 70 - 100 mg/dL [facility] Interpretation and review of laboratory results Abnormal [facility] Potassium [Moles/Vol] 4.2 mmol/L 3.5 - 5.1 mmol/L [facility] Sodium [Moles/Vol] 134 mmol/L Low 135 - 145 mmol/L [facility] Urea nitrogen [Mass/Vol] 23 mg/dL High 7 - 17 mg/dL [facility] CBC W Auto Differential pane l (Bld)Ordered By: Nicole Lakhani on 08-07-2024 Basophils (Bld) [#/Vol] 0.0 10*3/uL 0.0 - 0.2 10*3/uL [facility] Basophils/100 WBC (Bld) 0.1 % 0.0 - 2.0 % [facility] Eosinophils (Bld) [#/Vol] 0.5 10*3/uL 0.0 - 0.5 10*3/uL [facility] Eosinophils/100 WBC (Bld) 5.9 % 0.0 - 6.0 % [facility] Erythrocyte distribution width (RBC) [Ratio] 17.4 % High 11.5 - 15.0 % [facility] Hematocrit (Bld) [Volume fraction] 26.7 % Low 35.0 - 47.0 % [facility] Hemoglobin (Bld) [Mass/Vol] 8.1 g/dL Low 11.7 - 16.0 g/dL [facility] Immature granulocytes (Bld) [#/Vol] 0.1 10*3/uL High NINF - 0.1 10*3/uL [facility] Immature granulocytes/100 WBC (Bld) 1.0 % 0.0 - 2.0 % [facility] Interpretation and review of laboratory results Abnormal [facility] IPF 2 [facility] Lymphocytes (Bld) [#/Vol] 1.4 10*3/uL 1.0 - 4.3 10*3/uL [facility] Lymphocytes/100 WBC (Bld) 17.9 % 15.0 - 45.0 % [facility] MCH (RBC) [Entitic mass] 28.6 pg 26.0 - 34.0 pg [facility] MCHC (RBC) [Mass/Vol] 30.3 % Low 30.5 - 36.0 % [facility] MCV (RBC) [Entitic vol] 94.3 fL 77.0 - 99.0 fL [facility] Monocytes (Bld) [#/Vol] 0.6 10*3/uL 0.0 - 0.9 10*3/uL [facility] Monocytes/100 WBC (Bld) 7.2 % 5.0 - 13.0 % [facility] Neutrophils (Bld) [#/Vol] 5.5 10*3/uL 1.8 - 7.5 10*3/uL [facility] Neutrophils/100 WBC (Bld) 67.9 % 38.0 - 82.0 % [facility] Nucleated RBC/100 WBC (Bld) [Ratio] 0.0 % [facility] Platelet mean volume (Bld) [Entitic vol] 9.8 fL 9.0 - 12.7 fL [facility] Platelets (Bld) [#/Vol] 128 10*3/uL Low 140 - 440 10*3/uL [facility] RBC (Bld) [#/Vol] 2.83 10*6/uL Low 3.80 - 5.2 0 10*6/uL [facility] WBC (Bld) [#/Vol] 8.0 10*3/uL 3.6 - 10.7 10*3/uL [facility] CBC WITH AUTO DIFFERENTIALon 08-07-2024 Basophils (Bld) [#/Vol] 0.0 10*3/uL Normal 0.0-0.2 [facility] Comment on above: Performed By: #### L [id number] ####[employer] Architect: MARY SOTELO ([id number])[facility])[address] [place] [address] Basophils/100 WBC (Bld) 0.1 % Normal 0.0-2.0 [facility] Comment on above: Performed By: #### L [id number] ####[employer] Architect: MARY SOTELO ([id number])[facility])[address] [place] [address] Eosinophils (Bld) [#/Vol] 0.5 10*3/uL Normal 0.0-0.5 [facility] Comment on above: Performed By: #### L [id number] ####Ob[employer] Architect: MARY SOTELO ([id number])[facility])[address] [place] [address] Eosinophils/100 WBC (Bld) 5.9 % Normal 0.0-6.0 [facility] Comment on above: Performed By: #### L [id number] ####Ob[employer]e [employer] Architect: MARY SOTELO ([id number])[facility])[address] [place] [address] Erythrocyte distribution width (RBC) [Ratio] 17.4 % High 11.5-15.0 [facility] Comment on above: Performed By: #### L [id number] ####Ob[employer]e [employer] Architect: MARY SOTELO ([id number])[facility])[address] [place] [address] Hematocrit (Bld) [Volume fraction] 26.7 % Low 35.0-47.0 [facility] Comment on above: Performed By: #### L [id number] ####Obiee [employer] Architect: MARY SOTEOL ([id number])[facility])[address] [place] [address] Hemoglobin (Bld) [Mass/Vol] 8.1 g/dL Low 11.7-16.0 [facility] Comment on above: Performed By: #### L [id number] ####Obiee [employer] Solution Architect: MARY SOTELO ([id number])[facility])[address] [place] [address] IMMATURE GRANS % 1.0 % Normal 0.0-2.0 [facility] Comment on above: Performed By: #### L [id number] ####Ob[employer]e [employer] Solution Architect: MARY SOTELO ([id number])[facility])[address] [place] [address] IMMATURE GRANS ABSOLUTE 0.1 10*3/uL High <0.1 [facility] Comment on above: Performed By: #### L [id number] ####Ob[employer]e [employer] Solution Architect: MARY SOTELO ([id number])[facility])[address] [place] [address] [place] IPF 2 Normal [facility] Comment on above: Performed By: #### L [id number] ####Ob[employer]e [employer] Architect: MARY SOTELO ([id number])[facility])[address] [place] [address] Lymphocytes (Bld) [#/Vol] 1.4 10*3/uL Normal 1.0-4.3 [facility] Comment on above: Performed By: #### L [id number] ####Ob[employer] Architect: MARY SOTELO ([id number])[facility])[address] [place] [address] Lymphocytes/100 WBC (Bld) 17.9 % Normal 15.0-45.0 [facility] Comment on above: Performed By: #### L [id number] ####[employer] Architect: MARY SOTELO ([id number])[facility])[address] [place] [address] MCH (RBC) [Entitic mass] 28.6 pg Normal 26.0-34.0 [facility] Comment on above: Performed By: #### L [id number] ####Ob[employer]e [employer] Architect: MARY SOTELO ([id number])[facility])[address] [place] [address] MCHC 30.3 % Low 30.5-36.0 [facility] Comment on above: Performed By: #### L [id number] ####Ob[employer] Architect: MARY SOTELO ([id number])[facility])[address] [place] [address] MCV (RBC) [Entitic vol] 94.3 fL Normal 77.0-99.0 [facility] Comment on above: Performed By: #### L [id number] ####Ob[employer]e [employer] Architect: MARY SOTELO ([id number])[facility])[address] [place] [address] Monocytes (Bld) [#/Vol] 0.6 10*3/uL Normal 0.0-0.9 [facility] Comment on above: Performed By: #### L [id number] ####Ob[employer]e [employer] Architect: MARY SOTELO ([id number])[facility])[address] [place] [address] Monocytes/100 WBC (Bld) 7.2 % Normal 5.0-13.0 [facility] Comment on above: Performed By: #### L [id number] ####Ob[employer]e [employer] Architect: MARY SOTELO ([id number])[facility])[address] [place] [address] NEUTROPHILS ABSOLUTE 5.5 10*3/uL Normal 1.8-7.5 [facility] Comment on above: Performed By: #### L [id number] ####Obiee [employer] Solution Architect: MARY SOTELO ([id number])[facility])[address] [place] [address] Neutrophils/100 WBC (Bld) 67.9 % Normal 38.0-82.0 [facility] Comment on above: Performed By: #### L [id number] ####Obiee [employer] Solution Architect: MARY SOTELO ([id number])[facility])[address] [place] [address] NRBC 0.0 /100 WBCs Normal 0.0-2.0 [facility] Comment on above: Performed By: #### L [id number] ####Obiee [employer] Solution Architect: MARY SOTELO ([id number])[facility])[address] [place] [address] Platelet mean volume (Bld) [Entitic vol] 9.8 fL Normal 9.0-12.7 [facility] Comment on above: Performed By: #### L [id number] ####Obiee [employer] Solution Architect: MARY SOTELO ([id number])[facility])[address] [place] [address] Platelets (Bld) [#/Vol] 128 10*3/uL Low 140-440 [facility] Comment on above: Performed By: #### L [id number] ####Ob[employer]e [employer] Architect: MARY SOTELO ([id number])[facility])[address] [place] [address] RBC (Bld) [#/Vol] 2.83 10*6/uL Low 3.80-5.20 [facility] Comment on above: Performed By: #### L [id number] ####Ob[employer]e [employer] Architect: MARY SOTELO ([id number])[facility])[address] [place] [address] WBC (Bld) [#/Vol] 8.0 10*3/uL Normal 3.6-10.7 [facility] Comment on above: Performed By: #### L [id number] ####Ob[employer]e [employer] Architect: MARY SOTELO ([id number])[facility])[address] [place] [address] IDNon 08-07-2024 IDN Normal [facility] IDN Normal [facility] Laboratory - Chemistry and C hemistry - challengeon 08-07-2024 Glucose [Mass/Vol] 176 mg/dL High 70 - 100 mg/dL [facility] Glucose [Mass/Vol] 283 mg/dL High 70 - 100 mg/dL [facility] Glucose [Mass/Vol] 249 mg/dL High 70 - 100 mg/dL [facility] Glucose [Mass/Vol] 179 mg/dL High 70 - 100 mg/dL [facility] Magnesium [Mass/Vol] 1.9 mg/dL 1.6 - 2 .3 mg/dL [facility] MAGNESIUMon 08-07-2024 Magnesium [Mass/Vol] 1.9 mg/dL Normal 1.6-2.3 [facility] Comment on above: Performed By: #### L [id number], [id number], LAB15 ####Ob[employer]e [employer] Architect: MARY SOTELO ([id number])[address] No Panel Informationon 08-07 Interpretation and review of laboratory results Abnormal [facility] Interpretation and review of laboratory results Abnormal [facility] Interpretation and review of laboratory results Abnormal [facility] Interpretation and review of laboratory results Abnormal [facility] Interpretation and review of laboratory results Normal [facility] Nursing Noteon 08-07-2024 Nursing Note Normal [facility] PHOSPHORUSon 08-07-2024 Phosphate [Mass/Vol] 3.7 mg/dL Normal 2.5-4.5 [facility] Comment on above: Performed By: #### L AB103, [id number], LAB15 ####Ob[employer]e [employer] Architect: MARY SOTELO ([id number])[facility])[address] [place] [address] Phosphate [Moles/Vol]on Phosphate [Mass/Vol] 3.7 mg/dL 2.5 - 4 .5 mg/dL [facility] Progress Noteon 08-07-2024 Progress Note Normal [facility] Progress Note Normal [facility] RESPIRATORY PATHOGENS PANEL BY PCRon 08-07-2024 RESPIRATORY PATHOGENS PANEL BY PCR Normal [facility] Comment on above: Performed By: #### L [id number] ####Ob[employer]e [employer] Architect: MARY SOTELO ([id number])[facility] ([facility])[address] [place] [address] Respiratory pathogens DNA an d RNA panel MARISA+non-probe (Nph)on 08-07-2024 Adenovirus Not detected Not Detected [facility] B. pertussis DNA MARISA+probe Ql (Unsp spec) Not detected Not Detected [facility] Bordetella parapertussis Not detected Not Detected [facility] Chlamydia pneumoniae Not detected Not Detected [facility] Coronavirus 229E Not detected Not Detected [facility] Coronavirus HKU1 Not detected Not Detected [facility] Coronavirus NL63 Not detected Not Detected [facility] Coronavirus OC43 Not detected Not Detected [facility] FLUAV RNA MARISA+non-probe Ql (Nph) Not detected Not Detected [facility] FLUBV RNA MARISA+non-probe Ql (Nph) Not detected Not Detected [facility] Human Metapneumovirus Not detected Not Detected [facility] Human Rhinovirus/Enterovirus Not detected Not Detected [facility] Interpretation and review of laboratory results Normal [facility] Mycoplasma pneumoniae Not detected Not Detected [facility] Parainfluenza 1 Not detected Not Detected [facility] Parainfluenza 2 Not detected Not Detected [facility] Parainfluenza 3 Not detected Not Detected [facility] Parainfluenza 4 Not detected Not Detected [facility] Respiratory Syncytial Virus Not detected Not Detected [facility] SARS-CoV-2 (COVID-19) RNA MARISA+non-probe Ql (Nph) Not detected Not Detected [facility] BASIC METABOLIC PANELon 10-0 Anion gap [Moles/Vol] 2 mmol/L Low 3-13 [facility] Comment on above: Performed By: #### L AB103, LAB15, [id number] ####Ob[employer]e [employer] Solution Architect: MARY SOTELO ([id number])[facility] ([facility])[address] [place] [address] Calcium [Mass/Vol] 7.4 mg/dL Low 8.4-10.4 [facility] Comment on above: Performed By: #### L AB103, LAB15, [id number] ####Ob[employer] Architect: MARY SOTELO ([id number])[facility] ([facility])[address] [place] [address] Chloride [Moles/Vol] 99 mmol/L Normal 98-107 [facility] Comment on above: Performed By: #### L AB103, LAB15, [id number] ####Ob[employer] Architect: MARY SOTELO ([id number])[facility])[address] [place] [address] CO2 [Moles/Vol] 32 mmol/L High 22-30 [facility] Comment on above: Performed By: #### L AB103, LAB15, [id number] ####Ob[employer] Architect: MARY SOTELO ([id number])[facility])[address] [place] [address] Creatinine [Mass/Vol] 1.40 mg/dL High 0.52-1.04 [facility] Comment on above: Performed By: #### Dora AB103, LAB15, [id number] ####Ob[employer]e [employer] Solution Architect: MARY SOTELO ([id number])[facility])[address] [place] [address] GLOMERULAR FILTRATION RATE ML/MIN/1.73 SQ M.PREDICTED 42.1 mL/min/1.73m*2 Low >60.0 [facility] Comment on above: Result Comment: Calc ulation based on the Chronic Kidney Disease Epidemiology Collaboration (CKD-EPI) equation refit without adjustment for race Performed By: #### L AB103, LAB15, [id number] ####Ob[employer]e [employer] Architect: MARY SOTELO ([id number])[facility])[address] [place] [address] Glucose [Mass/Vol] 184 mg/dL High 70-100 [facility] Comment on above: Performed By: #### L AB103, LAB15, [id number] ####Ob[employer] Architect: MARY SOTELO ([id number])[facility])[address] [place] [address] Potassium [Moles/Vol] 3.1 mmol/L Low 3.5-5.1 [facility] Comment on above: Performed By: #### L AB103, LAB15, [id number] ####Ob[employer]e [employer] Solution Architect: MARY SOTELO ([id number])[facility])[address] [place] [address] Sodium [Moles/Vol] 133 mmol/L Low 135-145 [facility] Comment on above: Performed By: #### L AB103, LAB15, [id number] ####Ob[employer]e [employer] Solution Architect: MARY SOTELO ([id number])[facility])[address] [place] [address] Urea nitrogen [Mass/Vol] 16 mg/dL Normal 7-17 [facility] Comment on above: Performed By: #### L AB103, LAB15, [id number] ####Ob[employer]e [employer] Solution Architect: MARY SOTELO ([id number])[facility])[address] [place] [address] BLOOD TYPE AND SCREEN GELon 08-06-2024 ABO GROUPING O Normal [facility] Comment on above: Performed By: #### L [id number] ####Ob[employer]e [employer] Solution Architect: MARY SOTELO ([id number])[facility] ([facility])[address] [place] [address] RH TYPE IN BLOOD Positive Normal [facility] Comment on above: Performed By: #### L [id number] ####Ob[employer]e [employer] Solution Architect: MARY SOTELO ([id number])[facility] ([facility])[address] [place] [address] Basic metabolic 1998 panelon 08-06-2024 Anion gap [Moles/Vol] 2 mmol/L Low 3 - 13 mmol/L [facility] Calcium [Mass/Vol] 7.4 mg/dL Low 8.4 - 10. 4 mg/dL [facility] Chloride [Moles/Vol] 99 mmol/L 98 - 10 7 mmol/L [facility] CO2 [Moles/Vol] 32 mmol/L High 22 - 30 mmol/L [facility] Creatinine [Mass/Vol] 1.40 mg/dL High 0.52 - 1.04 mg/dL [facility] GFR/1.73 sq M.predicted (S/P/Bld) [Vol rate/Area] 42.1 mL/min Low - PINF [facility] Glucose [Mass/Vol] 184 mg/dL High 70 - 100 mg/dL [facility] Interpretation and review of laboratory results Abnormal [facility] Potassium [Moles/Vol] 3.1 mmol/L Low 3.5 - 5.1 mmol/L [facility] Sodium [Moles/Vol] 133 mmol/L Low 135 - 145 mmol/L [facility] Urea nitrogen [Mass/Vol] 16 mg/dL 7 - 17 mg/dL [facility] Blood type and Crossmatch pa eunice (Bld)on 08-06-2024 ABO group Nom (Bld) O [facility] Blood group antibody screen GEL Ql Negative [facility] D Ag Ql (RBC) Positive [facility] CARECOORDon 08-06-2024 CARECOORD Per nephro - UMA. Ho pe to recover . Line is tunneled . Nephrology updated on plans to work on out pt and placement . Normal [facility] Normal [facility] [place] Normal [facility] [place] Normal [facility] Normal [facility] CBC W Auto Differential pane l (Bld)on 08-06-2024 Basophils (Bld) [#/Vol] 0.0 10*3/uL 0.0 - 0.2 10*3/uL [facility] Basophils/100 WBC (Bld) 0.2 % 0.0 - 2.0 % [facility] Eosinophils (Bld) [#/Vol] 0.4 10*3/uL 0.0 - 0.5 10*3/uL [facility] Eosinophils/100 WBC (Bld) 6.6 % High 0.0 - 6.0 % [facility] Erythrocyte distribution width (RBC) [Ratio] 17.8 % High 11.5 - 15.0 % [facility] Hematocrit (Bld) [Volume fraction] 21.6 % Low 35.0 - 47.0 % [facility] Hemoglobin (Bld) [Mass/Vol] 6.6 g/dL Critically low 11.7 - 16.0 g/dL [facility] Immature granulocytes (Bld) [#/Vol] 0.1 10*3/uL High NINF - 0.1 10*3/uL [facility] Immature granulocytes/100 WBC (Bld) 0.8 % 0.0 - 2.0 % [facility] Interpretation and review of laboratory results Abnormal [facility] IPF 3 [facility] Lymphocytes (Bld) [#/Vol] 1.2 10*3/uL 1.0 - 4.3 10*3/uL [facility] Lymphocytes/100 WBC (Bld) 17.9 % 15.0 - 45.0 % [facility] MCH (RBC) [Entitic mass] 28.4 pg 26.0 - 34.0 pg [facility] MCHC (RBC) [Mass/Vol] 30.6 % 30.5 - 36.0 % [facility] MCV (RBC) [Entitic vol] 93.1 fL 77.0 - 99.0 fL [facility] Monocytes (Bld) [#/Vol] 0.5 10*3/uL 0.0 - 0.9 10*3/uL [facility] Monocytes/100 WBC (Bld) 7.2 % 5.0 - 13.0 % [facility] Neutrophils (Bld) [#/Vol] 4.4 10*3/uL 1.8 - 7.5 10*3/uL [facility] Neutrophils/100 WBC (Bld) 67.3 % 38.0 - 82.0 % [facility] Nucleated RBC/100 WBC (Bld) [Ratio] 0.0 % [facility] Platelet mean volume (Bld) [Entitic vol] 10.6 fL 9.0 - 12.7 fL [facility] Platelets (Bld) [#/Vol] 120 10*3/uL Low 140 - 440 10*3/uL [facility] RBC (Bld) [#/Vol] 2.32 10*6/uL Low 3.80 - 5.2 0 10*6/uL [facility] WBC (Bld) [#/Vol] 6.5 10*3/uL 3.6 - 10.7 10*3/uL [facility] CBC WITH AUTO DIFFERENTIALon 08-06-2024 Basophils (Bld) [#/Vol] 0.0 10*3/uL Normal 0.0-0.2 [facility] Comment on above: Performed By: #### L [id number] ####[employer] Architect: MARY SOTELO ([id number])[facility])[address] [place] [address] Basophils/100 WBC (Bld) 0.2 % Normal 0.0-2.0 [facility] Comment on above: Performed By: #### L [id number] ####[employer] Architect: MARY SOTELO ([id number])[facility])[address] [place] [address] Eosinophils (Bld) [#/Vol] 0.4 10*3/uL Normal 0.0-0.5 [facility] Comment on above: Performed By: #### L [id number] ####Ob[employer] Architect: MARY SOTELO ([id number])[facility])[address] [place] [address] Eosinophils/100 WBC (Bld) 6.6 % High 0.0-6.0 [facility] Comment on above: Performed By: #### L [id number] ####Ob[employer]e [employer] Solution Architect: MARY SOTELO ([id number])[facility])[address] [place] [address] Erythrocyte distribution width (RBC) [Ratio] 17.8 % High 11.5-15.0 [facility] Comment on above: Performed By: #### L [id number] ####[employer] Architect: MARY SOTELO ([id number])[facility])[address] [place] [address] Hematocrit (Bld) [Volume fraction] 21.6 % Low 35.0-47.0 [facility] Comment on above: Performed By: #### L [id number] ####[employer] Architect: MARY SOTELO ([id number])[facility])[address] [place] [address] Hemoglobin (Bld) [Mass/Vol] 6.6 g/dL Critically low 11.7-16.0 [facility] Comment on above: Performed By: #### L [id number] ####Ob[employer] Architect: MARY SOTELO ([id number])[facility])[address] [place] [address] IMMATURE GRANS % 0.8 % Normal 0.0-2.0 [facility] Comment on above: Performed By: #### L [id number] ####Ob[employer]e [employer] Solution Architect: MARY SOTELO ([id number])[facility])[address] [place] [address] IMMATURE GRANS ABSOLUTE 0.1 10*3/uL High <0.1 [facility] Comment on above: Performed By: #### L [id number] ####Ob[employer]e [employer] Architect: MARY SOTELO ([id number])[facility])[address] [place] [address] IPF 3 Normal [facility] Comment on above: Performed By: #### L [id number] ####[employer] Architect: MARY SOTELO ([id number])[address] Lymphocytes (Bld) [#/Vol] 1.2 10*3/uL Normal 1.0-4.3 [facility] Comment on above: Performed By: #### L [id number] ####[employer] Architect: MARY SOTELO ([id number])[address] Lymphocytes/100 WBC (Bld) 17.9 % Normal 15.0-45.0 [facility] Comment on above: Performed By: #### L [id number] ####Ob[employer] Architect: MARY SOTELO ([id number])[facility])[address] [place] [address] MCH (RBC) [Entitic mass] 28.4 pg Normal 26.0-34.0 [facility] Comment on above: Performed By: #### L [id number] ####[employer] Architect: MARY SOTELO ([id number])[address] MCHC 30.6 % Normal 30.5-36.0 [facility] Comment on above: Performed By: #### L [id number] ####[employer] Architect: MARY [id number])[facility])[address] [place] [address] MCV (RBC) [Entitic vol] 93.1 fL Normal 77.0-99.0 [facility] Comment on above: Performed By: #### L [id number] ####Ob[employer] Architect: MARY SOTELO ([id number])[facility])[address] [place] [address] Monocytes (Bld) [#/Vol] 0.5 10*3/uL Normal 0.0-0.9 [facility] Comment on above: Performed By: #### L [id number] ####Ob[employer] Architect: MARY SOTELO ([id number])[facility])[address] [place] [address] Monocytes/100 WBC (Bld) 7.2 % Normal 5.0-13.0 [facility] Comment on above: Performed By: #### L [id number] ####[employer] Architect: MARY SOTELO ([id number])[facility])[address] [place] [address] NEUTROPHILS ABSOLUTE 4.4 10*3/uL Normal 1.8-7.5 [facility] Comment on above: Performed By: #### L [id number] ####Ob[employer] Architect: MARY SOTELO ([id number])[facility])[address] [place] [address] Neutrophils/100 WBC (Bld) 67.3 % Normal 38.0-82.0 [facility] Comment on above: Performed By: #### L [id number] ####[employer] Architect: MARY SOTELO ([id number])[facility])[address] [place] [address] NRBC 0.0 /100 WBCs Normal 0.0-2.0 [facility] Comment on above: Performed By: #### L [id number] ####[employer] Architect: MARY SOTELO ([id number])[facility])[address] [place] [address] Platelet mean volume (Bld) [Entitic vol] 10.6 fL Normal 9.0-12.7 [facility] Comment on above: Performed By: #### L [id number] ####Ob[employer] Architect: MARY SOTELO ([id number])[facility])[address] [place] [address] Platelets (Bld) [#/Vol] 120 10*3/uL Low 140-440 [facility] Comment on above: Performed By: #### L [id number] ####[employer] Architect: MARY SOTELO ([id number])[facility])[address] [place] [address] RBC (Bld) [#/Vol] 2.32 10*6/uL Low 3.80-5.20 [facility] Comment on above: Performed By: #### L [id number] ####[employer] Architect: MARY SOTELO ([id number])[facility])[address] [place] [address] WBC (Bld) [#/Vol] 6.5 10*3/uL Normal 3.6-10.7 [facility] Comment on above: Performed By: #### L [id number] ####[employer] Architect: MARY SOTELO ([id number])[address] HEMOGLOBIN AND HEMATOCRIT, B [facility] 08-06-2024 Hematocrit (Bld) [Volume fraction] 25.2 % Low 35.0-47.0 [facility] Comment on above: Order Comment: Recom mend 1 hour post transfusion Performed By: #### L [id number] ####[employer] Architect: MARY SOTELO ([id number])[facility])[address] [place] [address] Hemoglobin (Bld) [Mass/Vol] 7.9 g/dL Low 11.7-16.0 [facility] Comment on above: Order Comment: Recom mend 1 hour post transfusion Performed By: #### L [id number] ####[employer] Architect: MARY [id number])[facility] ([facility])[address] [place] [address] [place] Hemoglobin (Bld) [Mass/Vol]o n 08-06-2024 Hematocrit (Bld) [Volume fraction] 25.2 % Low 35.0 - 47.0 % [facility] Interpretation and review of laboratory results Abnormal [facility] IDNon 08-06-2024 IDN The patient is Moderately Stable - Low risk of patient condition declining or worsening The patient's goals for the shift include The clinical goals for the shift include Normal [facility] [facility] IDN Normal [facility] IDN Normal [facility] Laboratory - Chemistry and C hemistry - challengeon 08-06-2024 Glucose [Mass/Vol] 271 mg/dL High 70 - 100 mg/dL [facility] Glucose [Mass/Vol] 305 mg/dL High 70 - 100 mg/dL [facility] Glucose [Mass/Vol] 333 mg/dL High 70 - 100 mg/dL [facility] Glucose [Mass/Vol] 199 mg/dL High 70 - 100 mg/dL [facility] Magnesium [Mass/Vol] 1.9 mg/dL 1.6 - 2 .3 mg/dL [facility] Laboratory - Hematology and Cell countson 08-06-2024 Hemoglobin (Bld) [Mass/Vol] 7.9 g/dL Low 11.7 - 16.0 g/dL [facility] MAGNESIUMon 08-06-2024 Magnesium [Mass/Vol] 1.9 mg/dL Normal 1.6-2.3 [facility] Comment on above: Performed By: #### L AB103, LAB15, [id number] ####[employer] Architect: MARY SOTELO ([id number])[facility] ([facility])[address] [place] [address] [place] Magnesium [Mass/Vol]on 08-06 Interpretation and review of laboratory results Normal [facility] No Panel Informationon 08-06 Interpretation and review of laboratory results Abnormal [facility] Interpretation and review of laboratory results Abnormal [facility] Interpretation and review of laboratory results Abnormal [facility] Interpretation and review of laboratory results Abnormal [facility] Blood Expiration Date S [facility] Crossmatch interpretation COMP [facility] Dispense Status Transfused [facility] Product Blood Type 5100 [facility] PRODUCT CODE [id number] [facility] ABO O [facility] Number [id number] [facility] RH Positive [facility] Volume 300 mL [facility] Nursing Noteon 08-06-2024 Nursing Note Patient bladder scanned for 113 ml. Patient states she does not need to void. Message sent to Dr Jarrett Normal [facility] Nursing Note Central line dressin g changed, patient tolerated well Normal [facility] Nursing Note Johnson removed per orders, patient tolerated well Normal [facility] PHOSPHORUSon 08-06-2024 Phosphate [Mass/Vol] 2.2 mg/dL Low 2.5-4.5 [facility] Comment on above: Performed By: #### L AB103, LAB15, [id number] ####[employer] Architect: MARY SOTELO ([id number])[facility])[address] [place] [address] Phosphate [Moles/Vol]on Interpretation and review of laboratory results Abnormal [facility] Phosphate [Mass/Vol] 2.2 mg/dL Low 2.5 - 4 .5 mg/dL [facility] Progress Noteon 08-06-2024 Progress Note Normal [facility] Progress Note Normal [facility] Progress [facility] Progress Note OCCUPATIONAL THERAPY [facility] Name/MRN: Sandy Deng ([id number]) Date: 08/06/2024 Hold OT this a.m.; HgB 6.6 with order to transfuse. Will follow and treat as appropriate. GUILLERMO Taylor Normal [facility] Progress Note Normal [facility] BASIC METABOLIC PANELon Anion gap [Moles/Vol] 0 mmol/L Low 3-13 [facility] Comment on above: Performed By: #### L AB103, [id number], LAB15 ####Ob[employer] Architect: MARY SOTELO ([id number])[facility] ([facility])[address] [place] [address] Calcium [Mass/Vol] 6.7 mg/dL Low 8.4-10.4 [facility] Comment on above: Performed By: #### L AB103, [id number], LAB15 ####[employer] Architect: MARY SOTELO ([id number])[facility] [place] [address] Chloride [Moles/Vol] 105 mmol/L Normal 98-107 [facility] Comment on above: Performed By: #### L AB103, [id number], LAB15 ####Ob[employer]e [employer] Architect: MARY SOTELO ([id number])[facility] [place] [address] CO2 [Moles/Vol] 26 mmol/L Normal 22-30 [facility] Comment on above: Performed By: #### L AB103, [id number], LAB15 ####Ob[employer]e [employer] Architect: MARY SOTELO ([id number])[facility] [place] [address] Creatinine [Mass/Vol] 2.56 mg/dL High 0.52-1.04 [facility] Comment on above: Performed By: #### L AB103, [id number], LAB15 ####Ob[employer]e [employer] Architect: MARY SOTELO ([id number])[facility])[address] [place] [address] [place] GLOMERULAR FILTRATION RATE ML/MIN/1.73 SQ M.PREDICTED 20.4 mL/min/1.73m*2 Low >60.0 [facility] Comment on above: Result Comment: Calc ulation based on the Chronic Kidney Disease Epidemiology Collaboration (CKD-EPI) equation refit without adjustment for race Performed By: #### L AB103, [id number], LAB15 ####Ob[employer]e [employer] Architect: MARY SOTELO ([id number])[facility] ([facility])[address] [place] [address] [place] Glucose [Mass/Vol] 151 mg/dL High 70-100 [facility] Comment on above: Performed By: #### L AB103, [id number], LAB15 ####Ob[employer]e [employer] Architect: MARY SOTELO ([id number])[facility] ([facility])[address] [place] [address] Potassium [Moles/Vol] 4.0 mmol/L Normal 3.5-5.1 [facility] Comment on above: Performed By: #### L AB103, [id number], LAB15 ####Ob[employer]e [employer] Architect: MARY SOTELO ([id number])[facility] ([facility])[address] [place] [address] Sodium [Moles/Vol] 132 mmol/L Low 135-145 [facility] Comment on above: Performed By: #### L AB103, [id number], LAB15 ####Ob[employer] Architect: MARY SOTELO ([id number])[facility] ([facility])[address] [place] [address] Urea nitrogen [Mass/Vol] 35 mg/dL High 7-17 [facility] Comment on above: Performed By: #### L AB103, [id number], LAB15 ####Ob[employer]e [employer] Architect: MARY SOTELO ([id number])[facility] [place] [address] Basic metabolic 1998 panelon 08-05-2024 Anion gap [Moles/Vol] 0 mmol/L Low 3 - 13 mmol/L [facility] Calcium [Mass/Vol] 6.7 mg/dL Low 8.4 - 10. 4 mg/dL [facility] Chloride [Moles/Vol] 105 mmol/L 98 - 10 7 mmol/L [facility] CO2 [Moles/Vol] 26 mmol/L 22 - 30 mmol/L [facility] Creatinine [Mass/Vol] 2.56 mg/dL High 0.52 - 1.04 mg/dL [facility] GFR/1.73 sq M.predicted (S/P/Bld) [Vol rate/Area] 20.4 mL/min Low - PINF [facility] Glucose [Mass/Vol] 151 mg/dL High 70 - 100 mg/dL [facility] Interpretation and review of laboratory results Abnormal [facility] Potassium [Moles/Vol] 4.0 mmol/L 3.5 - 5.1 mmol/L [facility] Sodium [Moles/Vol] 132 mmol/L Low 135 - 145 mmol/L [facility] Urea nitrogen [Mass/Vol] 35 mg/dL High 7 - 17 mg/dL [facility] CARECOORDon 08-05-2024 [facility] requested PT/OT t o see today via see today tool to start auth. Normal [facility] CBC W Auto Differential pane l (Bld)on 08-05-2024 Basophils (Bld) [#/Vol] 0.0 10*3/uL 0.0 - 0.2 10*3/uL [facility] Basophils/100 WBC (Bld) 0.0 % 0.0 - 2.0 % [facility] Eosinophils (Bld) [#/Vol] 0.0 10*3/uL 0.0 - 0.5 10*3/uL [facility] Eosinophils/100 WBC (Bld) 0.5 % 0.0 - 6.0 % [facility] Erythrocyte distribution width (RBC) [Ratio] 17.7 % High 11.5 - 15.0 % [facility] Hematocrit (Bld) [Volume fraction] 23.6 % Low 35.0 - 47.0 % [facility] Hemoglobin (Bld) [Mass/Vol] 7.4 g/dL Low 11.7 - 16.0 g/dL [facility] Immature granulocytes (Bld) [#/Vol] 0.1 10*3/uL High NINF - 0.1 10*3/uL [facility] Immature granulocytes/100 WBC (Bld) 0.7 % 0.0 - 2.0 % [facility] Interpretation and review of laboratory results Abnormal [facility] Lymphocytes (Bld) [#/Vol] 0.7 10*3/uL Low 1.0 - 4.3 10*3/uL [facility] Lymphocytes/100 WBC (Bld) 9.8 % Low 15.0 - 45.0 % [facility] MCH (RBC) [Entitic mass] 28.4 pg 26.0 - 34.0 pg [facility] MCHC (RBC) [Mass/Vol] 31.4 % 30.5 - 36.0 % [facility] MCV (RBC) [Entitic vol] 90.4 fL 77.0 - 99.0 fL [facility] Monocytes (Bld) [#/Vol] 0.3 10*3/uL 0.0 - 0.9 10*3/uL [facility] Monocytes/100 WBC (Bld) 4.2 % Low 5.0 - 13.0 % [facility] Neutrophils (Bld) [#/Vol] 6.3 10*3/uL 1.8 - 7.5 10*3/uL [facility] Neutrophils/100 WBC (Bld) 84.8 % High 38.0 - 82.0 % [facility] Nucleated RBC/100 WBC (Bld) [Ratio] 0.0 % [facility] Platelet mean volume (Bld) [Entitic vol] 10.0 fL 9.0 - 12.7 fL [facility] Platelets (Bld) [#/Vol] 168 10*3/uL 140 - 440 10*3/uL [facility] RBC (Bld) [#/Vol] 2.61 10*6/uL Low 3.80 - 5.2 0 10*6/uL [facility] WBC (Bld) [#/Vol] 7.4 10*3/uL 3.6 - 10.7 10*3/uL [facility] CBC WITH AUTO DIFFERENTIALon 08-05-2024 Basophils (Bld) [#/Vol] 0.0 10*3/uL Normal 0.0-0.2 [facility] Comment on above: Performed By: #### L [id number] ####[employer] Architect: MARY [id number])[address] Basophils/100 WBC (Bld) 0.0 % Normal 0.0-2.0 [facility] Comment on above: Performed By: #### L [id number] ####[employer] Architect: MARY [id number])[address] Eosinophils (Bld) [#/Vol] 0.0 10*3/uL Normal 0.0-0.5 [facility] Comment on above: Performed By: #### L [id number] ####Ob[employer] Architect: MARY [id number])[facility])[address] [place] [address] Eosinophils/100 WBC (Bld) 0.5 % Normal 0.0-6.0 [facility] Comment on above: Performed By: #### L [id number] ####Ob[employer] Architect: MAYR SOTELO ([id number])[facility])[address] [place] [address] Erythrocyte distribution width (RBC) [Ratio] 17.7 % High 11.5-15.0 [facility] Comment on above: Performed By: #### L [id number] ####[employer] Architect: MARY SOTELO ([id number])[facility])[address] [place] [address] Hematocrit (Bld) [Volume fraction] 23.6 % Low 35.0-47.0 [facility] Comment on above: Performed By: #### L [id number] ####[employer] Architect: MARY SOTELO ([id number])[facility])[address] [place] [address] Hemoglobin (Bld) [Mass/Vol] 7.4 g/dL Low 11.7-16.0 [facility] Comment on above: Performed By: #### L [id number] ####[employer] Architect: MARY SOTELO ([id number])[facility])[address] [place] [address] IMMATURE GRANS % 0.7 % Normal 0.0-2.0 [facility] Comment on above: Performed By: #### L [id number] ####Ob[employer]e [employer] Architect: MARY SOTELO ([id number])[facility])[address] [place] [address] IMMATURE GRANS ABSOLUTE 0.1 10*3/uL High <0.1 [facility] Comment on above: Performed By: #### L [id number] ####Ob[employer]e [employer] Architect: MARY SOTELO ([id number])[facility])[address] [place] [address] Lymphocytes (Bld) [#/Vol] 0.7 10*3/uL Low 1.0-4.3 [facility] Comment on above: Performed By: #### L [id number] ####Ob[employer] Architect: MARY SOTELO ([id number])[facility])[address] [place] [address] Lymphocytes/100 WBC (Bld) 9.8 % Low 15.0-45.0 [facility] Comment on above: Performed By: #### L [id number] ####Ob[employer]e [employer] Architect: MARY SOTELO ([id number])[facility])[address] [place] [address] MCH (RBC) [Entitic mass] 28.4 pg Normal 26.0-34.0 [facility] Comment on above: Performed By: #### L [id number] ####Ob[employer] Architect: MARY SOTELO ([id number])[facility])[address] [place] [address] MCHC 31.4 % Normal 30.5-36.0 [facility] Comment on above: Performed By: #### L [id number] ####Ob[employer]e [employer] Architect: MARY SOTELO ([id number])[facility])[address] [place] [address] MCV (RBC) [Entitic vol] 90.4 fL Normal 77.0-99.0 [facility] Comment on above: Performed By: #### L [id number] ####Ob[employer]e [employer] Architect: MARY SOTELO ([id number])[facility])[address] [place] [address] Monocytes (Bld) [#/Vol] 0.3 10*3/uL Normal 0.0-0.9 [facility] Comment on above: Performed By: #### L [id number] ####Ob[employer]e [employer] Architect: MARY SOTELO ([id number])[facility])[address] [place] [address] Monocytes/100 WBC (Bld) 4.2 % Low 5.0-13.0 [facility] Comment on above: Performed By: #### L [id number] ####Ob[employer]e [employer] Solution Architect: MARY SOTELO ([id number])[facility] ([facility])[address] [place] [address] NEUTROPHILS ABSOLUTE 6.3 10*3/uL Normal 1.8-7.5 [facility] Comment on above: Performed By: #### L [id number] ####Ob[employer]e [employer] Solution Architect: MARY SOTELO ([id number])[facility] ([facility])[address] [place] [address] Neutrophils/100 WBC (Bld) 84.8 % High 38.0-82.0 [facility] Comment on above: Performed By: #### L [id number] ####Ob[employer]e [employer] Solution Architect: MARY SOTELO ([id number])[facility] ([facility])[address] [place] [address] NRBC 0.0 /100 WBCs Normal 0.0-2.0 [facility] Comment on above: Performed By: #### L [id number] ####Ob[employer]e [employer] Architect: MARY SOTELO ([id number])[facility] ([facility])[address] [place] [address] Platelet mean volume (Bld) [Entitic vol] 10.0 fL Normal 9.0-12.7 [facility] Comment on above: Performed By: #### L [id number] ####Ob[employer]e [employer] Architect: MARY SOTELO ([id number])[facility] ([facility])[address] [place] [address] [place] Platelets (Bld) [#/Vol] 168 10*3/uL Normal 140-440 [facility] Comment on above: Performed By: #### L [id number] ####Ob[employer]e [employer] Architect: MARY SOTELO ([id number])[facility] ([facility])[address] [place] [address] RBC (Bld) [#/Vol] 2.61 10*6/uL Low 3.80-5.20 [facility] Comment on above: Performed By: #### L [id number] ####Obiee [employer] Architect: MARY SOTELO ([id number])[facility] ([facility])[address] [place] [address] WBC (Bld) [#/Vol] 7.4 10*3/uL Normal 3.6-10.7 [facility] Comment on above: Performed By: #### L [id number] ####[employer]e [employer] Architect: MARY SOTELO ([id number])[facility] ([facility])[address] [place] [address] LACTIC ACID WITH REFLEXon Lactate [Moles/Vol] 0.5 mmol/L Low 0.7-2.0 [facility] Comment on above: Performed By: #### L [id number] ####[employer] Architect: MARY SOTELO ([id number])[facility] ([facility])[address] [place] [address] Laboratory - Chemistry and C hemistry - challengeon 08-05-2024 Glucose [Mass/Vol] 341 mg/dL High 70 - 100 mg/dL [facility] Glucose [Mass/Vol] 303 mg/dL High 70 - 100 mg/dL [facility] Procalcitonin [Mass/Vol] 0.16 ng/mL High 0.00 - 0.09 ng/mL [facility] Glucose [Mass/Vol] 285 mg/dL High 70 - 100 mg/dL [facility] Glucose [Mass/Vol] 139 mg/dL High 70 - 100 mg/dL [facility] Magnesium [Mass/Vol] 2.2 mg/dL 1.6 - 2 .3 mg/dL [facility] Lactate [Moles/Vol] 0.5 mmol/L Low 0.7 - 2. 0 mmol/L [facility] MAGNESIUMon 08-05-2024 Magnesium [Mass/Vol] 2.2 mg/dL Normal 1.6-2.3 [facility] Comment on above: Performed By: #### L AB103, [id number], LAB15 ####[employer]e [employer] Architect: MARY SOTELO ([id number])[facility] ([facility])[address] [place] [address] No Panel Informationon 08-05 Interpretation and review of laboratory results Abnormal [facility] Interpretation and review of laboratory results Abnormal [facility] Interpretation and review of laboratory results Abnormal [facility] Interpretation and review of laboratory results Abnormal [facility] Interpretation and review of laboratory results Normal [facility] Interpretation and review of laboratory results Abnormal [facility] Nursing Noteon 08-05-2024 Nursing Note Normal [facility] PHOSPHORUSon 08-05-2024 Phosphate [Mass/Vol] 3.6 mg/dL Normal 2.5-4.5 [facility] Comment on above: Performed By: #### L AB103, [id number], LAB15 ####Ob[employer]e [employer] Architect: MARY SOTELO ([id number])[facility])[address] [place] [address] PROCALCITONIN TESTon 024 PROCALCITONIN 0.16 ng/mL High 0.00-0.09 [facility] Comment on above: Result Comment: BINA R COMMENTS:PCT <0.50 = Low risk of severe sepsis and/or septic shock.PCT >2.00 = High risk of severe sepsis and/or septic shock. Performed By: #### L [id number] ####[employer] Architect: MARY SOTELO ([id number])[address] Phosphate [Moles/Vol]on Phosphate [Mass/Vol] 3.6 mg/dL 2.5 - 4 .5 mg/dL [facility] Procalcitonin [Mass/Vol]on Interpretation and review of laboratory results Abnormal [facility] Progress Noteon 08-05-2024 Progress Note Normal [facility] Progress Note Normal [facility] Progress Note Normal [facility] Progress Note Normal [facility] Progress Note Normal [facility] Progress Note Normal [facility] XR CHEST 1 VIEWon 08-05-2024 XR CHEST 1 VIEW Normal [facility] XR Chest Single viewon 08-05 [facility] Radiology Study observation (narrative) [facility] BASIC METABOLIC PANELon 10-0 Anion gap [Moles/Vol] 4 mmol/L Normal 3-13 [facility] Comment on above: Performed By: #### L AB113, [id number], LAB15 ####Ob[employer] Architect: MARY SOTELO ([id number])[facility] [place] [address] Calcium [Mass/Vol] 7.0 mg/dL Low 8.4-10.4 [facility] Comment on above: Performed By: #### L AB113, [id number], LAB15 ####Ob[employer] Architect: MARY SOTELO ([id number])[facility])[address] [place] [address] Chloride [Moles/Vol] 104 mmol/L Normal 98-107 [facility] Comment on above: Performed By: #### L AB113, [id number], LAB15 ####Ob[employer]e [employer] Architect: MARY SOTELO ([id number])[facility] [place] [address] CO2 [Moles/Vol] 26 mmol/L Normal 22-30 [facility] Comment on above: Performed By: #### L AB113, [id number], LAB15 ####Ob[employer]e [employer] Solution Architect: MARY SOTELO ([id number])[facility] [place] [address] Creatinine [Mass/Vol] 1.88 mg/dL High 0.52-1.04 [facility] Comment on above: Performed By: #### L AB113, [id number], LAB15 ####Ob[employer]e [employer] Architect: MARY SOTELO ([id number])[facility] ([facility])[address] [place] [address] [place] GLOMERULAR FILTRATION RATE ML/MIN/1.73 SQ M.PREDICTED 29.6 mL/min/1.73m*2 Low >60.0 [facility] Comment on above: Result Comment: Calc ulation based on the Chronic Kidney Disease Epidemiology Collaboration (CKD-EPI) equation refit without adjustment for race Performed By: #### L AB113, [id number], LAB15 ####Ob[employer] Architect: MARY SOTELO ([id number])[facility] [place] [address] Glucose [Mass/Vol] 119 mg/dL High 70-100 [facility] Comment on above: Performed By: #### L AB113, [id number], LAB15 ####Ob[employer]e [employer] Architect: MARY SOTELO ([id number])[facility] ([facility])[address] [place] [address] Potassium [Moles/Vol] 3.6 mmol/L Normal 3.5-5.1 [facility] Comment on above: Performed By: #### L AB113, [id number], LAB15 ####Ob[employer]e [employer] Architect: MARY SOTELO ([id number])[facility])[address] [place] [address] Sodium [Moles/Vol] 134 mmol/L Low 135-145 [facility] Comment on above: Performed By: #### Dora AB113, [id number], LAB15 ####Ob[employer] Architect: MARY SOTELO ([id number])[facility] [place] [address] Urea nitrogen [Mass/Vol] 24 mg/dL High 7-17 [facility] Comment on above: Performed By: #### L AB113, [id number], LAB15 ####Ob[employer]e [employer] Architect: MARY SOTELO ([id number])[facility])[address] [place] [address] Basic metabolic 1998 panelon 08-04-2024 Anion gap [Moles/Vol] 4 mmol/L 3 - 13 mmol/L [facility] Calcium [Mass/Vol] 7.0 mg/dL Low 8.4 - 10. 4 mg/dL [facility] Chloride [Moles/Vol] 104 mmol/L 98 - 10 7 mmol/L [facility] CO2 [Moles/Vol] 26 mmol/L 22 - 30 mmol/L [facility] Creatinine [Mass/Vol] 1.88 mg/dL High 0.52 - 1.04 mg/dL [facility] GFR/1.73 sq M.predicted (S/P/Bld) [Vol rate/Area] 29.6 mL/min Low - PINF [facility] Glucose [Mass/Vol] 119 mg/dL High 70 - 100 mg/dL [facility] Interpretation and review of laboratory results Abnormal [facility] Potassium [Moles/Vol] 3.6 mmol/L 3.5 - 5.1 mmol/L [facility] Sodium [Moles/Vol] 134 mmol/L Low 135 - 145 mmol/L [facility] Urea nitrogen [Mass/Vol] 24 mg/dL High 7 - 17 mg/dL [facility] CALCIUM, IONIZEDon CALCIUM IONIZED 3.70 mg/dL Low 4.30-5.20 [facility] Comment on above: Performed By: #### L [id number] ####[employer] Architect: MARY SOTELO ([id number])[facility] ([facility])[address] [place] [address] PH, IONIZED CALCIUM 7.45 Normal 7.31-7.46 [facility] Comment on above: Performed By: #### L AB54 ####Obiee [employer] Architect: MARY SOTELO ([id number])[facility] ([facility])[address] [place] [address] CARECOORDon 08-04-2024 [place]ORD Normal [facility] CBC W Auto Differential pane l (Bld)on 08-04-2024 Basophils (Bld) [#/Vol] 0.0 10*3/uL 0.0 - 0.2 10*3/uL [facility] Basophils/100 WBC (Bld) 0.1 % 0.0 - 2.0 % [facility] Eosinophils (Bld) [#/Vol] 0.1 10*3/uL 0.0 - 0.5 10*3/uL [facility] Eosinophils/100 WBC (Bld) 0.7 % 0.0 - 6.0 % [facility] Erythrocyte distribution width (RBC) [Ratio] 17.4 % High 11.5 - 15.0 % [facility] Hematocrit (Bld) [Volume fraction] 26.5 % Low 35.0 - 47.0 % [facility] Hemoglobin (Bld) [Mass/Vol] 8.3 g/dL Low 11.7 - 16.0 g/dL [facility] Immature granulocytes (Bld) [#/Vol] 0.1 10*3/uL High NINF - 0.1 10*3/uL [facility] Immature granulocytes/100 WBC (Bld) 1.1 % 0.0 - 2.0 % [facility] Interpretation and review of laboratory results Abnormal [facility] Lymphocytes (Bld) [#/Vol] 0.7 10*3/uL Low 1.0 - 4.3 10*3/uL [facility] Lymphocytes/100 WBC (Bld) 8.4 % Low 15.0 - 45.0 % [facility] MCH (RBC) [Entitic mass] 28.5 pg 26.0 - 34.0 pg [facility] MCHC (RBC) [Mass/Vol] 31.3 % 30.5 - 36.0 % [facility] MCV (RBC) [Entitic vol] 91.1 fL 77.0 - 99.0 fL [facility] Monocytes (Bld) [#/Vol] 0.3 10*3/uL 0.0 - 0.9 10*3/uL [facility] Monocytes/100 WBC (Bld) 3.6 % Low 5.0 - 13.0 % [facility] Neutrophils (Bld) [#/Vol] 7.4 10*3/uL 1.8 - 7.5 10*3/uL [facility] Neutrophils/100 WBC (Bld) 86.1 % High 38.0 - 82.0 % [facility] Nucleated RBC/100 WBC (Bld) [Ratio] 0.0 % [facility] Platelet mean volume (Bld) [Entitic vol] 9.1 fL 9.0 - 12.7 fL [facility] Platelets (Bld) [#/Vol] 178 10*3/uL 140 - 440 10*3/uL [facility] RBC (Bld) [#/Vol] 2.91 10*6/uL Low 3.80 - 5.2 0 10*6/uL [facility] WBC (Bld) [#/Vol] 8.5 10*3/uL 3.6 - 10.7 10*3/uL [facility] CBC WITH AUTO DIFFERENTIALon 08-04-2024 Basophils (Bld) [#/Vol] 0.0 10*3/uL Normal 0.0-0.2 [facility] Comment on above: Performed By: #### L [id number] ####[employer] Architect: MARY SOTELO ([id number])[facility])[address] [place] [address] Basophils/100 WBC (Bld) 0.1 % Normal 0.0-2.0 [facility] Comment on above: Performed By: #### L [id number] ####[employer] Architect: MARY SOTELO ([id number])[facility])[address] [place] [address] Eosinophils (Bld) [#/Vol] 0.1 10*3/uL Normal 0.0-0.5 [facility] Comment on above: Performed By: #### L [id number] ####[employer] Architect: MARY SOTELO ([id number])[address] Eosinophils/100 WBC (Bld) 0.7 % Normal 0.0-6.0 [facility] Comment on above: Performed By: #### L [id number] ####[employer] Architect: MARY SOTELO ([id number])[address] Erythrocyte distribution width (RBC) [Ratio] 17.4 % High 11.5-15.0 [facility] Comment on above: Performed By: #### L [id number] ####[employer] Architect: MARY SOTELO ([id number])[address] Hematocrit (Bld) [Volume fraction] 26.5 % Low 35.0-47.0 [facility] Comment on above: Performed By: #### L [id number] ####[employer] Architect: MARY SOTELO ([id number])[address] Hemoglobin (Bld) [Mass/Vol] 8.3 g/dL Low 11.7-16.0 [facility] Comment on above: Performed By: #### L [id number] ####[employer] Architect: MARY SOTELO ([id number])[facility])[address] [place] [address] IMMATURE GRANS % 1.1 % Normal 0.0-2.0 [facility] Comment on above: Performed By: #### L [id number] ####Ob[employer] Architect: MARY SOTELO ([id number])[facility])[address] [place] [address] IMMATURE GRANS ABSOLUTE 0.1 10*3/uL High <0.1 [facility] Comment on above: Performed By: #### L [id number] ####[employer] Architect: MARY SOTELO ([id number])[facility])[address] [place] [address] Lymphocytes (Bld) [#/Vol] 0.7 10*3/uL Low 1.0-4.3 [facility] Comment on above: Performed By: #### L [id number] ####[employer] Architect: MARY SOTELO ([id number])[facility])[address] [place] [address] Lymphocytes/100 WBC (Bld) 8.4 % Low 15.0-45.0 [facility] Comment on above: Performed By: #### L [id number] ####[employer] Architect: MARY SOTELO ([id number])[facility])[address] [place] [address] MCH (RBC) [Entitic mass] 28.5 pg Normal 26.0-34.0 [facility] Comment on above: Performed By: #### L [id number] ####[employer] Architect: MARY SOTELO ([id number])[facility])[address] [place] [address] MCHC 31.3 % Normal 30.5-36.0 [facility] Comment on above: Performed By: #### L [id number] ####[employer] Architect: MARY SOTELO ([id number])[facility])[address] [place] [address] [place] MCV (RBC) [Entitic vol] 91.1 fL Normal 77.0-99.0 [facility] Comment on above: Performed By: #### L [id number] ####[employer] Architect: MARY SOTELO ([id number])[facility])[address] [place] [address] Monocytes (Bld) [#/Vol] 0.3 10*3/uL Normal 0.0-0.9 [facility] Comment on above: Performed By: #### L [id number] ####Ob[employer] Architect: MARY SOTELO ([id number])[facility])[address] [place] [address] Monocytes/100 WBC (Bld) 3.6 % Low 5.0-13.0 [facility] Comment on above: Performed By: #### L [id number] ####[employer] Architect: MARY SOTELO ([id number])[facility])[address] [place] [address] NEUTROPHILS ABSOLUTE 7.4 10*3/uL Normal 1.8-7.5 [facility] Comment on above: Performed By: #### L [id number] ####[employer] Architect: MARY SOTELO ([id number])[facility])[address] [place] [address] Neutrophils/100 WBC (Bld) 86.1 % High 38.0-82.0 [facility] Comment on above: Performed By: #### L [id number] ####[employer] Architect: MARY SOTLEO ([id number])[facility])[address] [place] [address] NRBC 0.0 /100 WBCs Normal 0.0-2.0 [facility] Comment on above: Performed By: #### L [id number] ####Ob[employer]e [employer] Architect: MARY SOTELO ([id number])[facility])[address] [place] [address] Platelet mean volume (Bld) [Entitic vol] 9.1 fL Normal 9.0-12.7 [facility] Comment on above: Performed By: #### L [id number] ####Ob[employer] Architect: MARY SOTELO ([id number])[facility])[address] [place] [address] Platelets (Bld) [#/Vol] 178 10*3/uL Normal 140-440 [facility] Comment on above: Performed By: #### L [id number] ####[employer] Architect: MARY SOTELO ([id number])[facility])[address] [place] [address] RBC (Bld) [#/Vol] 2.91 10*6/uL Low 3.80-5.20 [facility] Comment on above: Performed By: #### L [id number] ####[employer] Architect: MARY SOTELO ([id number])[facility])[address] [place] [address] WBC (Bld) [#/Vol] 8.5 10*3/uL Normal 3.6-10.7 [facility] Comment on above: Performed By: #### L [id number] ####[employer] Architect: MARY SOTELO ([id number])[facility])[address] [place] [address] Calcium.ionized [Moles/Vol]o n 08-04-2024 Calcium.ionized (Bld) [Moles/Vol] 3.70 mg/dL Low 4.30 - 5.20 mg/dL [facility] Interpretation and review of laboratory results Abnormal [facility] PH, IONIZED CALCIUM 7.45 7.31 - 7.46 [facility] IDNon 08-04-2024 IDN Normal [facility] Laboratory - Chemistry and C hemistry - challengeon 08-04-2024 Glucose [Mass/Vol] 167 mg/dL High 70 - 100 mg/dL [facility] Glucose [Mass/Vol] 181 mg/dL High 70 - 100 mg/dL [facility] Glucose [Mass/Vol] 191 mg/dL High 70 - 100 mg/dL [facility] Glucose [Mass/Vol] 113 mg/dL High 70 - 100 mg/dL [facility] Magnesium [Mass/Vol] 2.0 mg/dL 1.6 - 2 .3 mg/dL [facility] MAGNESIUMon 08-04-2024 Magnesium [Mass/Vol] 2.0 mg/dL Normal 1.6-2.3 [facility] Comment on above: Performed By: #### L [id number], [id number], LAB15 ####[employer] Architect: MARY SOTELO ([id number])[facility])[address] [place] [address] No Panel Informationon 08-04 Interpretation and review of laboratory results Abnormal [facility] Interpretation and review of laboratory results Abnormal [facility] Interpretation and review of laboratory results Abnormal [facility] Interpretation and review of laboratory results Abnormal [facility] Interpretation and review of laboratory results Normal [facility] Nursing Noteon 08-04-2024 Nursing Note Normal [facility] PHOSPHORUSon 08-04-2024 Phosphate [Mass/Vol] 3.4 mg/dL Normal 2.5-4.5 [facility] Comment on above: Performed By: #### L AB113, [id number], LAB15 ####[employer] Architect: MARY SOTELO ([id number])[facility])[address] [place] [address] Phosphate [Moles/Vol]on Phosphate [Mass/Vol] 3.4 mg/dL 2.5 - 4 .5 mg/dL [facility] Progress Noteon 08-04-2024 Progress Note Normal [facility] Progress Note Normal [facility] Progress Note Normal [facility] Progress Note Normal [facility] RF videography Hypopharynx a nd Esophagus Views for swallowing function W speech and W barium contrast Harman 08-04-2024 [facility] Radiology Study observation (narrative) [facility] RF videography Hypopharynx a nd Esophagus Views for swallowing function W speech and W barium contrast POOrdered By: Mynor Pulido on 08-04-2024 [facility] Work Phone: BASIC METABOLIC PANELon Anion gap [Moles/Vol] 1 mmol/L Low 3-13 [facility] Comment on above: Performed By: #### Dora AB103, LAB15, [id number] ####[employer] Architect: MARY SOTELO ([id number])[facility] [place] [address] Calcium [Mass/Vol] 7.4 mg/dL Low 8.4-10.4 [facility] Comment on above: Performed By: #### Dora AB103, LAB15, [id number] ####[employer] Architect: MARY SOTELO ([id number])[facility] [place] [address] Chloride [Moles/Vol] 110 mmol/L High 98-107 [facility] Comment on above: Performed By: #### Dora SONG, LAB15, [id number] ####[employer] Architect: MARY SOTELO ([id number])[facility] [place] [address] CO2 [Moles/Vol] 26 mmol/L Normal 22-30 [facility] Comment on above: Performed By: #### Dora SONG, LAB15, [id number] ####[employer] Architect: MARY SOTELO ([id number])[facility])[address] [place] [address] Creatinine [Mass/Vol] 2.29 mg/dL High 0.52-1.04 [facility] Comment on above: Performed By: #### Dora SONG, LAB15, [id number] ####[employer] Architect: MARY SOTELO ([id number])[facility] [place] [address] [place] GLOMERULAR FILTRATION RATE ML/MIN/1.73 SQ M.PREDICTED 23.3 mL/min/1.73m*2 Low >60.0 [facility] Comment on above: Result Comment: Calc ulation based on the Chronic Kidney Disease Epidemiology Collaboration (CKD-EPI) equation refit without adjustment for race Performed By: #### Dora AB103, LAB15, [id number] ####[employer] Architect: MARY SOTELO ([id number])[facility] [place] [address] Glucose [Mass/Vol] 87 mg/dL Normal 70-100 [facility] Comment on above: Performed By: #### L AB103, LAB15, [id number] ####[employer] Architect: MARY SOTELO ([id number])[facility])[address] [place] [address] Potassium [Moles/Vol] 4.3 mmol/L Normal 3.5-5.1 [facility] Comment on above: Performed By: #### L AB103, LAB15, [id number] ####[employer] Architect: MARY SOTELO ([id number])[facility])[address] [place] [address] Sodium [Moles/Vol] 137 mmol/L Normal 135-145 [facility] Comment on above: Performed By: #### L AB103, LAB15, [id number] ####[employer] Architect: MARY SOTELO ([id number])[facility])[address] [place] [address] Urea nitrogen [Mass/Vol] 28 mg/dL High 7-17 [facility] Comment on above: Performed By: #### L AB103, LAB15, [id number] ####[employer] Architect: MARY SOTELO ([id number])[facility])[address] [place] [address] Basic metabolic 1998 panelon 08-03-2024 Anion gap [Moles/Vol] 1 mmol/L Low 3 - 13 mmol/L [facility] Calcium [Mass/Vol] 7.4 mg/dL Low 8.4 - 10. 4 mg/dL [facility] Chloride [Moles/Vol] 110 mmol/L High 98 - 10 7 mmol/L [facility] CO2 [Moles/Vol] 26 mmol/L 22 - 30 mmol/L [facility] Creatinine [Mass/Vol] 2.29 mg/dL High 0.52 - 1.04 mg/dL [facility] GFR/1.73 sq M.predicted (S/P/Bld) [Vol rate/Area] 23.3 mL/min Low - PINF [facility] Glucose [Mass/Vol] 87 mg/dL 70 - 100 mg/dL [facility] Potassium [Moles/Vol] 4.3 mmol/L 3.5 - 5.1 mmol/L [facility] Sodium [Moles/Vol] 137 mmol/L 135 - 145 mmol/L [facility] Urea nitrogen [Mass/Vol] 28 mg/dL High 7 - 17 mg/dL [facility] CALCIUM, IONIZEDon CALCIUM IONIZED 4.20 mg/dL Low 4.30-5.20 [facility] Comment on above: Performed By: #### L AB54 ####[employer] Architect: MARY SOTELO ([id number])[facility])[address] [place] [address] PH, IONIZED CALCIUM 7.29 Low 7.31-7.46 [facility] Comment on above: Performed By: #### L AB54 ####[employer] Architect: MARY SOTELO ([id number])[facility])[address] [place] [address] CARECOORDon 08-03-2024 CARECOORD Normal [facility] CBC W Auto Differential pane l (Bld)Ordered By: Irais Carranza on 08-03-2024 Basophils (Bld) [#/Vol] 0.0 10*3/uL 0.0 - 0.2 10*3/uL [facility] Basophils/100 WBC (Bld) 0.2 % 0.0 - 2.0 % [facility] Eosinophils (Bld) [#/Vol] 0.1 10*3/uL 0.0 - 0.5 10*3/uL [facility] Eosinophils/100 WBC (Bld) 0.5 % 0.0 - 6.0 % [facility] Erythrocyte distribution width (RBC) [Ratio] 18.1 % High 11.5 - 15.0 % [facility] Hematocrit (Bld) [Volume fraction] 28.6 % Low 35.0 - 47.0 % [facility] Hemoglobin (Bld) [Mass/Vol] 8.5 g/dL Low 11.7 - 16.0 g/dL [facility] Immature granulocytes (Bld) [#/Vol] 0.1 10*3/uL High NINF - 0.1 10*3/uL [facility] Immature granulocytes/100 WBC (Bld) 1.1 % 0.0 - 2.0 % [facility] Interpretation and review of laboratory results Abnormal [facility] Lymphocytes (Bld) [#/Vol] 0.7 10*3/uL Low 1.0 - 4.3 10*3/uL [facility] Lymphocytes/100 WBC (Bld) 6.5 % Low 15.0 - 45.0 % [facility] MCH (RBC) [Entitic mass] 27.4 pg 26.0 - 34.0 pg [facility] MCHC (RBC) [Mass/Vol] 29.7 % Low 30.5 - 36.0 % [facility] MCV (RBC) [Entitic vol] 92.3 fL 77.0 - 99.0 fL [facility] Monocytes (Bld) [#/Vol] 0.3 10*3/uL 0.0 - 0.9 10*3/uL [facility] Monocytes/100 WBC (Bld) 3.0 % Low 5.0 - 13.0 % [facility] Neutrophils (Bld) [#/Vol] 9.6 10*3/uL High 1.8 - 7.5 10*3/uL [facility] Neutrophils/100 WBC (Bld) 88.7 % High 38.0 - 82.0 % [facility] Nucleated RBC/100 WBC (Bld) [Ratio] 0.0 % [facility] Platelet mean volume (Bld) [Entitic vol] 9.9 fL 9.0 - 12.7 fL [facility] Platelets (Bld) [#/Vol] 210 10*3/uL 140 - 440 10*3/uL [facility] RBC (Bld) [#/Vol] 3.10 10*6/uL Low 3.80 - 5.2 0 10*6/uL [facility] WBC (Bld) [#/Vol] 10.8 10*3/uL High 3.6 - 10.7 10*3/uL [facility] CBC WITH AUTO DIFFERENTIALon 08-03-2024 Basophils (Bld) [#/Vol] 0.0 10*3/uL Normal 0.0-0.2 [facility] Comment on above: Performed By: #### L [id number] ####[employer] Architect: MARY SOTELO ([id number])[facility])[address] [place] [address] Basophils/100 WBC (Bld) 0.2 % Normal 0.0-2.0 [facility] Comment on above: Performed By: #### L [id number] ####[employer] Architect: MARY SOTELO ([id number])[facility])[address] [place] [address] Eosinophils (Bld) [#/Vol] 0.1 10*3/uL Normal 0.0-0.5 [facility] Comment on above: Performed By: #### L [id number] ####[employer] Architect: MARY SOTELO ([id number])[address] Eosinophils/100 WBC (Bld) 0.5 % Normal 0.0-6.0 [facility] Comment on above: Performed By: #### L [id number] ####[employer] Architect: MARY SOTELO ([id number])[facility])[address] [place] [address] Erythrocyte distribution width (RBC) [Ratio] 18.1 % High 11.5-15.0 [facility] Comment on above: Performed By: #### L [id number] ####[employer] Architect: MARY SOTELO ([id number])[address] Hematocrit (Bld) [Volume fraction] 28.6 % Low 35.0-47.0 [facility] Comment on above: Performed By: #### L [id number] ####[employer] Architect: MARY SOTELO ([id number])[address] Hemoglobin (Bld) [Mass/Vol] 8.5 g/dL Low 11.7-16.0 [facility] Comment on above: Performed By: #### L [id number] ####[employer] Architect: MARY [id number])[facility])[address] [place] [address] IMMATURE GRANS % 1.1 % Normal 0.0-2.0 [facility] Comment on above: Performed By: #### L [id number] ####[employer] Architect: MARY SOTEOL ([id number])[facility])[address] [place] [address] IMMATURE GRANS ABSOLUTE 0.1 10*3/uL High <0.1 [facility] Comment on above: Performed By: #### L [id number] ####[employer] Architect: MARY SOTELO ([id number])[facility])[address] [place] [address] Lymphocytes (Bld) [#/Vol] 0.7 10*3/uL Low 1.0-4.3 [facility] Comment on above: Performed By: #### L [id number] ####[employer] Architect: MARY SOTELO ([id number])[facility])[address] [place] [address] Lymphocytes/100 WBC (Bld) 6.5 % Low 15.0-45.0 [facility] Comment on above: Performed By: #### L [id number] ####[employer] Architect: MARY SOTELO ([id number])[facility])[address] [place] [address] MCH (RBC) [Entitic mass] 27.4 pg Normal 26.0-34.0 [facility] Comment on above: Performed By: #### L [id number] ####[employer] Architect: MARY SOTELO ([id number])[facility])[address] [place] [address] MCHC 29.7 % Low 30.5-36.0 [facility] Comment on above: Performed By: #### L [id number] ####[employer] Architect: MARY SOTELO ([id number])[facility])[address] [place] [address] MCV (RBC) [Entitic vol] 92.3 fL Normal 77.0-99.0 [facility] Comment on above: Performed By: #### L [id number] ####[employer] Architect: MARY SOTELO ([id number])[facility])[address] [place] [address] Monocytes (Bld) [#/Vol] 0.3 10*3/uL Normal 0.0-0.9 [facility] Comment on above: Performed By: #### L [id number] ####Ob[employer] Architect: MARY SOTELO ([id number])[facility])[address] [place] [address] Monocytes/100 WBC (Bld) 3.0 % Low 5.0-13.0 [facility] Comment on above: Performed By: #### L [id number] ####[employer] Architect: MARY SOTELO ([id number])[facility])[address] [place] [address] NEUTROPHILS ABSOLUTE 9.6 10*3/uL High 1.8-7.5 [facility] Comment on above: Performed By: #### L [id number] ####Ob[employer] Architect: MARY SOTELO ([id number])[facility])[address] [place] [address] Neutrophils/100 WBC (Bld) 88.7 % High 38.0-82.0 [facility] Comment on above: Performed By: #### L [id number] ####[employer] Architect: MARY SOTELO ([id number])[facility])[address] [place] [address] NRBC 0.0 /100 WBCs Normal 0.0-2.0 [facility] Comment on above: Performed By: #### L [id number] ####[employer] Architect: MARY SOTELO ([id number])[facility])[address] [place] [address] Platelet mean volume (Bld) [Entitic vol] 9.9 fL Normal 9.0-12.7 [facility] Comment on above: Performed By: #### L [id number] ####[employer] Architect: MARY SOTELO ([id number])[facility])[address] [place] [address] Platelets (Bld) [#/Vol] 210 10*3/uL Normal 140-440 [facility] Comment on above: Performed By: #### L [id number] ####[employer] Architect: MARY SOTELO ([id number])[facility])[address] [place] [address] RBC (Bld) [#/Vol] 3.10 10*6/uL Low 3.80-5.20 [facility] Comment on above: Performed By: #### L [id number] ####[employer] Architect: MARY SOTELO ([id number])[facility])[address] [place] [address] WBC (Bld) [#/Vol] 10.8 10*3/uL High 3.6-10.7 [facility] Comment on above: Performed By: #### L [id number] ####[employer] Architect: MARY SOTELO ([id number])[facility])[address] [place] [address] Calcium.ionized [Moles/Vol]o n 08-03-2024 Calcium.ionized (Bld) [Moles/Vol] 4.20 mg/dL Low 4.30 - 5.20 mg/dL [facility] Interpretation and review of laboratory results Abnormal [facility] PH, IONIZED CALCIUM 7.29 Low 7.31 - 7.46 [facility] Laboratory - Chemistry and C hemistry - challengeon 08-03-2024 Glucose [Mass/Vol] 118 mg/dL High 70 - 100 mg/dL [facility] Glucose [Mass/Vol] 93 mg/dL 70 - 100 mg/dL [facility] Glucose [Mass/Vol] 173 mg/dL High 70 - 100 mg/dL [facility] Glucose [Mass/Vol] 81 mg/dL 70 - 100 mg/dL [facility] Magnesium [Mass/Vol] 2.4 mg/dL High 1.6 - 2 .3 mg/dL [facility] Glucose [Mass/Vol] 88 mg/dL 70 - 100 mg/dL [facility] MAGNESIUMon 08-03-2024 Magnesium [Mass/Vol] 2.4 mg/dL High 1.6-2.3 [facility] Comment on above: Performed By: #### L AB103, LAB15, [id number] ####[employer] Architect: MARY SOTELO ([id number])[facility] ([facility])[address] [place] [address] No Panel Informationon 08-03 Interpretation and review of laboratory results Abnormal [facility] Interpretation and review of laboratory results Normal [facility] Interpretation and review of laboratory results Abnormal [facility] Interpretation and review of laboratory results Normal [facility] Interpretation and review of laboratory results Abnormal [facility] Interpretation and review of laboratory results Normal [facility] Nursing Noteon 08-03-2024 Nursing Note Normal [facility] PHOSPHORUSon 08-03-2024 Phosphate [Mass/Vol] 3.4 mg/dL Normal 2.5-4.5 [facility] Comment on above: Performed By: #### L AB103, LAB15, [id number] ####[employer] Architect: MARY SOTELO ([id number])[facility] ([facility] [facility] [place] [address] Phosphate [Moles/Vol]on Interpretation and review of laboratory results Normal [facility] Phosphate [Mass/Vol] 3.4 mg/dL 2.5 - 4 .5 mg/dL [facility] Progress Noteon 08-03-2024 Progress Note Normal [facility] Progress Note Normal [facility] Progress Note Normal [facility] Progress Note Normal [facility] Progress Note Normal [facility] BASIC METABOLIC PANELon 3 Anion gap [Moles/Vol] 3 mmol/L Normal 3-13 [facility] Comment on above: Performed By: #### L AB113, LAB15, [id number] ####Ob[employer]e [employer] Solution Architect: MARY SOTELO ([id number])[facility] ([facility] [place] [address] Calcium [Mass/Vol] 7.4 mg/dL Low 8.4-10.4 [facility] Comment on above: Performed By: #### Dora AB113, LAB15, [id number] ####Ob[employer]e [employer] Solution Architect: MARY SOTELO ([id number])[facility] ([facility] [place] [address] Chloride [Moles/Vol] 107 mmol/L Normal 98-107 [facility] Comment on above: Performed By: #### Dora AB113, LAB15, [id number] ####Obiee [employer] Solution Architect: MARY SOTELO ([id number])[facility] ([facility] [place] [address] CO2 [Moles/Vol] 23 mmol/L Normal 22-30 [facility] Comment on above: Performed By: #### Dora ABGabbie, LAB15, [id number] ####Obiee Obia Solution Architect: MARY SOTELO ([id number])[facility] ([facility])[address] [place] [address] Creatinine [Mass/Vol] 1.55 mg/dL High 0.52-1.04 [facility] Comment on above: Performed By: #### Dora ABGabbie, LAB15, [id number] ####Obiee [employer] Solution Architect: MARY SOTELO ([id number])[facility] ([facility])[address] [place] [address] [place] GLOMERULAR FILTRATION RATE ML/MIN/1.73 SQ M.PREDICTED 37.3 mL/min/1.73m*2 Low >60.0 [facility] Comment on above: Result Comment: Calc ulation based on the Chronic Kidney Disease Epidemiology Collaboration (CKD-EPI) equation refit without adjustment for race Performed By: #### Dora ABGabbie, LAB15, [id number] ####Obiee [employer] Solution Architect: MARY SOTELO ([id number])[facility] ([facility])[address] [place] [address] [place] Glucose [Mass/Vol] 212 mg/dL High 70-100 [facility] Comment on above: Performed By: #### L AB113, LAB15, [id number] ####Obiee Ob[employer] Solution Architect: MARY [id number])[facility] ([facility])[address] [place] [address] Potassium [Moles/Vol] 4.1 mmol/L Normal 3.5-5.1 [facility] Comment on above: Performed By: #### L AB113, LAB15, [id number] ####Obiee Obia Solution Architect: MARY SOTELO ([id number])[facility] ([facility])[address] [place] [address] Sodium [Moles/Vol] 134 mmol/L Low 135-145 [facility] Comment on above: Performed By: #### L AB113, LAB15, [id number] ####Obiee [employer] Solution Architect: MARY SOTELO ([id number])[facility] ([facility])[address] [place] [address] Urea nitrogen [Mass/Vol] 21 mg/dL High 7-17 [facility] Comment on above: Performed By: #### L AB113, LAB15, [id number] ####Obiee Obia Solution Architect: MARY SOTELO ([id number])[facility] ([facility] [place] [address] Basic metabolic 1998 panelon 08-02-2024 Anion gap [Moles/Vol] 3 mmol/L 3 - 13 mmol/L [facility] Calcium [Mass/Vol] 7.4 mg/dL Low 8.4 - 10. 4 mg/dL [facility] Chloride [Moles/Vol] 107 mmol/L 98 - 10 7 mmol/L [facility] CO2 [Moles/Vol] 23 mmol/L 22 - 30 mmol/L [facility] Creatinine [Mass/Vol] 1.55 mg/dL High 0.52 - 1.04 mg/dL [facility] GFR/1.73 sq M.predicted (S/P/Bld) [Vol rate/Area] 37.3 mL/min Low - PINF [facility] Glucose [Mass/Vol] 212 mg/dL High 70 - 100 mg/dL [facility] Interpretation and review of laboratory results Abnormal [facility] Potassium [Moles/Vol] 4.1 mmol/L 3.5 - 5.1 mmol/L [facility] Sodium [Moles/Vol] 134 mmol/L Low 135 - 145 mmol/L [facility] Urea nitrogen [Mass/Vol] 21 mg/dL High 7 - 17 mg/dL [facility] CALCIUM, IONIZEDon CALCIUM IONIZED 4.30 mg/dL Normal 4.30-5.20 [facility] Comment on above: Performed By: #### L [id number] ####Obiee Obia Solution Architect: MARY SOTELO ([id number])[facility] ([facility])[address] [place] [address] PH, IONIZED CALCIUM 7.36 Normal 7.31-7.46 [facility] Comment on above: Performed By: #### L AB54 ####Obiee Obia Solution Architect: MARY SOTELO ([id number])[facility] ([facility])[address] [place] [address] CARECOORDon 08-02-2024 CARECOORD Normal [facility] CARECOORD Normal [facility] CBC W Auto Differential pane l (Bld)on 08-02-2024 Basophils (Bld) [#/Vol] 0.0 10*3/uL 0.0 - 0.2 10*3/uL [facility] Basophils/100 WBC (Bld) 0.1 % 0.0 - 2.0 % [facility] Eosinophils (Bld) [#/Vol] 0.0 10*3/uL 0.0 - 0.5 10*3/uL [facility] Eosinophils/100 WBC (Bld) 0.4 % 0.0 - 6.0 % [facility] Erythrocyte distribution width (RBC) [Ratio] 17.8 % High 11.5 - 15.0 % [facility] Hematocrit (Bld) [Volume fraction] 24.7 % Low 35.0 - 47.0 % [facility] Hemoglobin (Bld) [Mass/Vol] 7.8 g/dL Low 11.7 - 16.0 g/dL [facility] Immature granulocytes (Bld) [#/Vol] 0.1 10*3/uL High NINF - 0.1 10*3/uL [facility] Immature granulocytes/100 WBC (Bld) 0.6 % 0.0 - 2.0 % [facility] Interpretation and review of laboratory results Abnormal [facility] Lymphocytes (Bld) [#/Vol] 0.4 10*3/uL Low 1.0 - 4.3 10*3/uL [facility] Lymphocytes/100 WBC (Bld) 4.5 % Low 15.0 - 45.0 % [facility] MCH (RBC) [Entitic mass] 28.4 pg 26.0 - 34.0 pg [facility] MCHC (RBC) [Mass/Vol] 31.6 % 30.5 - 36.0 % [facility] MCV (RBC) [Entitic vol] 89.8 fL 77.0 - 99.0 fL [facility] Monocytes (Bld) [#/Vol] 0.2 10*3/uL 0.0 - 0.9 10*3/uL [facility] Monocytes/100 WBC (Bld) 2.1 % Low 5.0 - 13.0 % [facility] Neutrophils (Bld) [#/Vol] 9.0 10*3/uL High 1.8 - 7.5 10*3/uL [facility] Neutrophils/100 WBC (Bld) 92.3 % High 38.0 - 82.0 % [facility] Nucleated RBC/100 WBC (Bld) [Ratio] 0.0 % [facility] Platelet mean volume (Bld) [Entitic vol] 10.4 fL 9.0 - 12.7 fL [facility] Platelets (Bld) [#/Vol] 177 10*3/uL 140 - 440 10*3/uL [facility] RBC (Bld) [#/Vol] 2.75 10*6/uL Low 3.80 - 5.2 0 10*6/uL [facility] WBC (Bld) [#/Vol] 9.8 10*3/uL 3.6 - 10.7 10*3/uL [facility] CBC WITH AUTO DIFFERENTIALon 08-02-2024 Basophils (Bld) [#/Vol] 0.0 10*3/uL Normal 0.0-0.2 [facility] Comment on above: Performed By: #### L [id number] ####Obiee [employer] Solution Architect: MARY SOTELO ([id number])[facility] ([address] Basophils/100 WBC (Bld) 0.1 % Normal 0.0-2.0 [facility] Comment on above: Performed By: #### L [id number] ####Obiee [employer] Solution Architect: MARY SOTELO ([id number])[facility])[address] [place] [address] Eosinophils (Bld) [#/Vol] 0.0 10*3/uL Normal 0.0-0.5 [facility] Comment on above: Performed By: #### L [id number] ####Obiee [employer] Solution Architect: MARY SOTELO ([id number])[facility])[address] [place] [address] Eosinophils/100 WBC (Bld) 0.4 % Normal 0.0-6.0 [facility] Comment on above: Performed By: #### L [id number] ####Obiee [employer] Architect: MARY SOTELO ([id number])[address] Erythrocyte distribution width (RBC) [Ratio] 17.8 % High 11.5-15.0 [facility] Comment on above: Performed By: #### L [id number] ####Obiee [employer] Architect: MARY SOTELO ([id number])[address] Hematocrit (Bld) [Volume fraction] 24.7 % Low 35.0-47.0 [facility] Comment on above: Performed By: #### L [id number] ####Obiee [employer] Architect: MARY SOTELO ([id number])[address] Hemoglobin (Bld) [Mass/Vol] 7.8 g/dL Low 11.7-16.0 [facility] Comment on above: Performed By: #### L [id number] ####Obiee Ob[employer] Solution Architect: MARY SOTELO ([id number])[facility])[address] [place] [address] IMMATURE GRANS % 0.6 % Normal 0.0-2.0 [facility] Comment on above: Performed By: #### L [id number] ####Obiee Obia Solution Architect: MARY SOTELO ([id number])[facility])[address] [place] [address] IMMATURE GRANS ABSOLUTE 0.1 10*3/uL High <0.1 [facility] Comment on above: Performed By: #### L [id number] ####Obiee Ob[employer] Solution Architect: MARY SOTELO ([id number])[facility])[address] [place] [address] Lymphocytes (Bld) [#/Vol] 0.4 10*3/uL Low 1.0-4.3 [facility] Comment on above: Performed By: #### L [id number] ####Obiee Ob[employer] Solution Architect: MARY SOTELO ([id number])[address] Lymphocytes/100 WBC (Bld) 4.5 % Low 15.0-45.0 [facility] Comment on above: Performed By: #### L [id number] ####Obiee Ob[employer] Solution Architect: MARY SOTELO ([id number])[facility])[address] [place] [address] MCH (RBC) [Entitic mass] 28.4 pg Normal 26.0-34.0 [facility] Comment on above: Performed By: #### L [id number] ####Obiee Ob[employer] Solution Architect: MARY SOTELO ([id number])[facility])[address] [place] [address] MCHC 31.6 % Normal 30.5-36.0 [facility] Comment on above: Performed By: #### L [id number] ####Obiee Ob[employer] Solution Architect: MARY SOTELO ([id number])[facility])[address] [place] [address] MCV (RBC) [Entitic vol] 89.8 fL Normal 77.0-99.0 [facility] Comment on above: Performed By: #### L [id number] ####Obiee Ob[employer] Solution Architect: MARY SOTELO ([id number])[facility])[address] [place] [address] [place] Monocytes (Bld) [#/Vol] 0.2 10*3/uL Normal 0.0-0.9 [facility] Comment on above: Performed By: #### L [id number] ####Obiee Obia Solution Architect: MARY SOTELO ([id number])[facility] ([facility])[address] [place] [address] Monocytes/100 WBC (Bld) 2.1 % Low 5.0-13.0 [facility] Comment on above: Performed By: #### L [id number] ####Obiee Ob[employer] Solution Architect: MARY SOTELO ([id number])[facility] ([facility])[address] [place] [address] NEUTROPHILS ABSOLUTE 9.0 10*3/uL High 1.8-7.5 [facility] Comment on above: Performed By: #### L [id number] ####Obiee Obia Solution Architect: MARY SOTELO ([id number])[facility] ([facility])[address] [place] [address] Neutrophils/100 WBC (Bld) 92.3 % High 38.0-82.0 [facility] Comment on above: Performed By: #### L [id number] ####Obiee Obia Solution Architect: MARY SOTELO ([id number])[facility] ([facility])[address] [place] [address] NRBC 0.0 /100 WBCs Normal 0.0-2.0 [facility] Comment on above: Performed By: #### L [id number] ####Obiee Obia Solution Architect: MARY SOTELO ([id number])[facility] ([facility])[address] [place] [address] Platelet mean volume (Bld) [Entitic vol] 10.4 fL Normal 9.0-12.7 [facility] Comment on above: Performed By: #### L [id number] ####Obiee Ob[employer] Solution Architect: MARY SOTELO ([id number])[facility] ([facility])[address] [place] [address] Platelets (Bld) [#/Vol] 177 10*3/uL Normal 140-440 [facility] Comment on above: Performed By: #### L [id number] ####Obiee Ob[employer] Solution Architect: MARY SOTELO ([id number])[facility] ([facility])[address] [place] [address] RBC (Bld) [#/Vol] 2.75 10*6/uL Low 3.80-5.20 [facility] Comment on above: Performed By: #### L [id number] ####Obiee Ob[employer] Solution Architect: MARY SOTELO ([id number])[facility] ([facility])[address] [place] [address] WBC (Bld) [#/Vol] 9.8 10*3/uL Normal 3.6-10.7 [facility] Comment on above: Performed By: #### L [id number] ####Obiee Ob[employer] Solution Architect: MARY SOTELO ([id number])[facility] ([facility])[address] [place] [address] Calcium.ionized [Moles/Vol]o n 08-02-2024 Calcium.ionized (Bld) [Moles/Vol] 4.30 mg/dL 4.30 - 5.20 mg/dL [facility] Interpretation and review of laboratory results Normal [facility] PH, IONIZED CALCIUM 7.36 7.31 - 7.46 [facility] ECG 12-LEADon 08-02-2024 ECG 12-LEAD IMPRESSION: Unclear atrial rhythm - consider accelerated junctional Right bundle branch block Electronically Signed On 08-02-2024 08:53:44 EDT by Khai Duong Normal [facility] Laboratory - Chemistry and C hemistry - challengeon 08-02-2024 Glucose [Mass/Vol] 211 mg/dL High 70 - 100 mg/dL [facility] Glucose [Mass/Vol] 202 mg/dL High 70 - 100 mg/dL [facility] Glucose [Mass/Vol] 180 mg/dL High 70 - 100 mg/dL [facility] Magnesium [Mass/Vol] 2.3 mg/dL 1.6 - 2 .3 mg/dL [facility] Glucose [Mass/Vol] 217 mg/dL High 70 - 100 mg/dL [facility] MAGNESIUMon 08-02-2024 Magnesium [Mass/Vol] 2.3 mg/dL Normal 1.6-2.3 [facility] Comment on above: Performed By: #### Dora QUINTANILLA, LAB15, [id number] ####Obiee [employer] Solution Architect: MARY SOTELO ([id number])[facility] ([facility])[address] [place] [address] No Panel Informationon 08-02 Interpretation and review of laboratory results Abnormal [facility] Interpretation and review of laboratory results Abnormal [facility] CV EPIPHANY [facility] Interpretation and review of laboratory results Abnormal [facility] Interpretation and review of laboratory results Normal [facility] Interpretation and review of laboratory results Abnormal [facility] No Panel InformationOrdered By: Khai Duong on 08-02-2024 P [place] 0 degrees [facility] Work Phone: [place] Interval 0 ms [facility] Work Phone: QRS [place] -118 degrees [facility] Work Phone: QRSD Interval 145 ms [facility] Work Phone: QT Interval 477 ms [facility] Work Phone: QTC Interval 528 ms [facility] Work Phone: T Wave [place] 36 degrees [facility] Work Phone: [employer] [facility] Work Phone: PHOSPHORUSon 08-02-2024 Phosphate [Mass/Vol] 3.0 mg/dL Normal 2.5-4.5 [facility] Comment on above: Performed By: #### Dora QUINTANILLA, LAB15, [id number] ####Obiee [employer] Solution Architect: MARY SOTELO ([id number])[facility] ([facility] [place] [address] Phosphate [Moles/Vol]on 07-06 Phosphate [Mass/Vol] 3.0 mg/dL 2.5 - 4 .5 mg/dL [facility] Progress Noteon 08-02-2024 Progress Note Normal [facility] Progress Note Normal [facility] Progress Note Normal [facility] Progress Note Normal [facility] Progress Note Normal [facility] Progress Note Normal [facility] Vital signsOrdered By: Khai Duong on 08-02-2024 Heart rate 73 /min bpm [facility] Work Phone: CALCIUM, IONIZEDon 4 CALCIUM IONIZED 4.10 mg/dL Low 4.30-5.20 [facility] Comment on above: Performed By: #### L [id number] ####Obiee Ob[employer] Solution Architect: MARY SOTELO ([id number])[facility] ([facility])[address] [place] [address] [place] PH, IONIZED CALCIUM 7.38 Normal 7.31-7.46 [facility] Comment on above: Performed By: #### L [id number] ####Obiee Ob[employer] Solution Architect: MARY SOTELO ([id number])[facility])[address] [place] [address] CALCIUM IONIZED 4.30 mg/dL Normal 4.30-5.20 [facility] Comment on above: Performed By: #### L [id number] ####Obiee [employer] Solution Architect: MARY SOTELO ([id number])[facility] ([facility])[address] [place] [address] [place] PH, IONIZED CALCIUM 7.32 Normal 7.31-7.46 [facility] Comment on above: Performed By: #### L [id number] ####Obiee [employer] Solution Architect: MARY SOTELO ([id number])[facility] ([facility])[address] [place] [address] [place] CALCIUM IONIZED 4.50 mg/dL Normal 4.30-5.20 [facility] Comment on above: Performed By: #### L [id number] ####Obiee [employer] Solution Architect: MARY SOTELO ([id number])[facility])[address] [place] [address] [place] PH, IONIZED CALCIUM 7.31 Normal 7.31-7.46 [facility] Comment on above: Performed By: #### L AB54 ####Obiee Ob[employer] Solution Architect: MARY SOTELO ([id number])[facility] ([facility])[address] [place], [place] [id number] [facility] CBC W Auto Differential pane l (Bld)on 08-01-2024 Basophils (Bld) [#/Vol] 0.0 10*3/uL 0.0 - 0.2 10*3/uL [facility] Basophils/100 WBC (Bld) 0.1 % 0.0 - 2.0 % [facility] Eosinophils (Bld) [#/Vol] 0.1 10*3/uL 0.0 - 0.5 10*3/uL [facility] Eosinophils/100 WBC (Bld) 0.7 % 0.0 - 6.0 % [facility] Erythrocyte distribution width (RBC) [Ratio] 17.1 % High 11.5 - 15.0 % [facility] Hematocrit (Bld) [Volume fraction] 25.9 % Low 35.0 - 47.0 % [facility] Hemoglobin (Bld) [Mass/Vol] 8.3 g/dL Low 11.7 - 16.0 g/dL [facility] Immature granulocytes (Bld) [#/Vol] 0.0 10*3/uL NINF - 0.1 10*3/uL [facility] Immature granulocytes/100 WBC (Bld) 0.3 % 0.0 - 2.0 % [facility] Interpretation and review of laboratory results Abnormal [facility] Lymphocytes (Bld) [#/Vol] 1.0 10*3/uL 1.0 - 4.3 10*3/uL [facility] Lymphocytes/100 WBC (Bld) 9.9 % Low 15.0 - 45.0 % [facility] MCH (RBC) [Entitic mass] 28.2 pg 26.0 - 34.0 pg [facility] MCHC (RBC) [Mass/Vol] 32.0 % 30.5 - 36.0 % [facility] MCV (RBC) [Entitic vol] 88.1 fL 77.0 - 99.0 fL [facility] Monocytes (Bld) [#/Vol] 0.5 10*3/uL 0.0 - 0.9 10*3/uL [facility] Monocytes/100 WBC (Bld) 4.9 % Low 5.0 - 13.0 % [facility] Neutrophils (Bld) [#/Vol] 8.7 10*3/uL High 1.8 - 7.5 10*3/uL [facility] Neutrophils/100 WBC (Bld) 84.1 % High 38.0 - 82.0 % [facility] Nucleated RBC/100 WBC (Bld) [Ratio] 0.0 % [facility] Platelet mean volume (Bld) [Entitic vol] 11.0 fL 9.0 - 12.7 fL [facility] Platelets (Bld) [#/Vol] 156 10*3/uL 140 - 440 10*3/uL [facility] RBC (Bld) [#/Vol] 2.94 10*6/uL Low 3.80 - 5.2 0 10*6/uL [facility] WBC (Bld) [#/Vol] 10.4 10*3/uL 3.6 - 10.7 10*3/uL [facility] CBC WITH AUTO DIFFERENTIALon 08-01-2024 Basophils (Bld) [#/Vol] 0.0 10*3/uL Normal 0.0-0.2 [facility] Comment on above: Performed By: #### L [id number] ####[employer] Architect: MARY SOTELO ([id number])[address] Basophils/100 WBC (Bld) 0.1 % Normal 0.0-2.0 [facility] Comment on above: Performed By: #### L [id number] ####[employer] Architect: MARY SOTELO ([id number])[place] [address] [place] Eosinophils (Bld) [#/Vol] 0.1 10*3/uL Normal 0.0-0.5 [facility] Comment on above: Performed By: #### L [id number] ####Ob[employer] Architect: MARY SOTELO ([id number])[facility])[address] [place] [address] [place] Eosinophils/100 WBC (Bld) 0.7 % Normal 0.0-6.0 [facility] Comment on above: Performed By: #### L [id number] ####Ob[employer]e [employer] Architect: MARY [id number])[facility] [address] Erythrocyte distribution width (RBC) [Ratio] 17.1 % High 11.5-15.0 [facility] Comment on above: Performed By: #### L [id number] ####[employer] Architect: MARY SOTELO ([id number])[facility])[address] [place] [address] Hematocrit (Bld) [Volume fraction] 25.9 % Low 35.0-47.0 [facility] Comment on above: Performed By: #### L [id number] ####[employer] Architect: MARY SOTELO ([id number])[address] Hemoglobin (Bld) [Mass/Vol] 8.3 g/dL Low 11.7-16.0 [facility] Comment on above: Performed By: #### L [id number] ####Ob[employer] Architect: MARY SOTELO ([id number])[facility])[address] [place] [address] IMMATURE GRANS % 0.3 % Normal 0.0-2.0 [facility] Comment on above: Performed By: #### L [id number] ####Ob[employer]e [employer] Architect: MARY SOTELO ([id number])[facility])[address] [place] [address] IMMATURE GRANS ABSOLUTE 0.0 10*3/uL Normal <0.1 [facility] Comment on above: Performed By: #### L [id number] ####[employer] Architect: MARY SOTELO ([id number])[facility])[address] [place] [address] Lymphocytes (Bld) [#/Vol] 1.0 10*3/uL Normal 1.0-4.3 [facility] Comment on above: Performed By: #### L [id number] ####[employer] Architect: MARY SOTELO ([id number])[facility])[address] [place] [address] Lymphocytes/100 WBC (Bld) 9.9 % Low 15.0-45.0 [facility] Comment on above: Performed By: #### L [id number] ####[employer] Architect: MARY SOTELO ([id number])[facility])[address] [place] [address] MCH (RBC) [Entitic mass] 28.2 pg Normal 26.0-34.0 [facility] Comment on above: Performed By: #### L [id number] ####[employer] Architect: MARY SOTELO ([id number])[facility])[address] [place] [address] MCHC 32.0 % Normal 30.5-36.0 [facility] Comment on above: Performed By: #### L [id number] ####[employer] Architect: MARY SOTELO ([id number])[facility])[address] [place] [address] MCV (RBC) [Entitic vol] 88.1 fL Normal 77.0-99.0 [facility] Comment on above: Performed By: #### L [id number] ####[employer] Architect: MARY SOTELO ([id number])[facility])[address] [place] [address] Monocytes (Bld) [#/Vol] 0.5 10*3/uL Normal 0.0-0.9 [facility] Comment on above: Performed By: #### L [id number] ####[employer] Architect: MARY SOTELO ([id number])[facility])[address] [place] [address] Monocytes/100 WBC (Bld) 4.9 % Low 5.0-13.0 [facility] Comment on above: Performed By: #### L [id number] ####[employer] Architect: MARY SOTELO ([id number])[facility])[address] [place] [address] NEUTROPHILS ABSOLUTE 8.7 10*3/uL High 1.8-7.5 [facility] Comment on above: Performed By: #### L [id number] ####[employer] Architect: MARY [id number])[facility] ([facility])[address] [place] [address] Neutrophils/100 WBC (Bld) 84.1 % High 38.0-82.0 [facility] Comment on above: Performed By: #### L [id number] ####[employer] Architect: MARY SOTELO ([id number])[facility] ([facility])[address] [place] [address] NRBC 0.0 /100 WBCs Normal 0.0-2.0 [facility] Comment on above: Performed By: #### L [id number] ####[employer] Architect: MARY SOTELO ([id number])[facility] ([facility])[address] [place] [address] Platelet mean volume (Bld) [Entitic vol] 11.0 fL Normal 9.0-12.7 [facility] Comment on above: Performed By: #### L [id number] ####[employer] Architect: MARY SOTELO ([id number])[facility] ([facility])[address] [place] [address] Platelets (Bld) [#/Vol] 156 10*3/uL Normal 140-440 [facility] Comment on above: Performed By: #### L [id number] ####Ob[employer]e [employer] Architect: MARY SOTELO ([id number])[facility] ([facility])[address] [place] [address] RBC (Bld) [#/Vol] 2.94 10*6/uL Low 3.80-5.20 [facility] Comment on above: Performed By: #### L [id number] ####Ob[employer]e [employer] Architect: MARY SOTELO ([id number])[facility] ([facility])[address] [place] [address] [place] WBC (Bld) [#/Vol] 10.4 10*3/uL Normal 3.6-10.7 [facility] Comment on above: Performed By: #### L [id number] ####Ob[employer]e [employer] Architect: MARY SOTELO ([id number])[facility] ([facility])[address] [place] [address] Calcium.ionized [Moles/Vol]o n 08-01-2024 Calcium.ionized (Bld) [Moles/Vol] 4.10 mg/dL Low 4.30 - 5.20 mg/dL [facility] Interpretation and review of laboratory results Abnormal [facility] PH, IONIZED CALCIUM 7.38 7.31 - 7.46 [facility] Calcium.ionized (Bld) [Moles/Vol] 4.30 mg/dL 4.30 - 5.20 mg/dL [facility] Interpretation and review of laboratory results Normal [facility] PH, IONIZED CALCIUM 7.32 7.31 - 7.46 [facility] Calcium.ionized (Bld) [Moles/Vol] 4.50 mg/dL 4.30 - 5.20 mg/dL [facility] Interpretation and review of laboratory results Normal [facility] PH, IONIZED CALCIUM 7.31 7.31 - 7.46 [facility] IDNon 08-01-2024 IDN Normal [facility] Laboratory - Chemistry and C hemistry - challengeon 08-01-2024 Glucose [Mass/Vol] 192 mg/dL High 70 - 100 mg/dL [facility] Glucose [Mass/Vol] 170 mg/dL High 70 - 100 mg/dL [facility] Glucose [Mass/Vol] 166 mg/dL High 70 - 100 mg/dL [facility] Glucose [Mass/Vol] 120 mg/dL High 70 - 100 mg/dL [facility] Glucose [Mass/Vol] 161 mg/dL High 70 - 100 mg/dL [facility] No Panel Informationon 08-01 Interpretation and review of laboratory results Abnormal [facility] Interpretation and review of laboratory results Abnormal [facility] Interpretation and review of laboratory results Abnormal [facility] Interpretation and review of laboratory results Abnormal [facility] Interpretation and review of laboratory results Abnormal [facility] Progress Noteon 08-01-2024 Progress Note Normal [facility] Progress Note Normal [facility] Progress Note Normal [facility] RENAL FUNCTION PANELon 08-01 Albumin [Mass/Vol] 2.1 g/dL Low 3.5-5.0 [facility] Comment on above: Performed By: #### L [id number] ####Ob[employer]e [employer] Architect: MARY SOTELO ([id number])[facility])[address] [place] [address] Anion gap [Moles/Vol] 3 mmol/L Normal 3-13 [facility] Comment on above: Performed By: #### L [id number] ####Obiee [employer] Solution Architect: MARY SOTELO ([id number])[facility])[address] [place] [address] Calcium [Mass/Vol] 7.2 mg/dL Low 8.4-10.4 [facility] Comment on above: Performed By: #### L [id number] ####Obiee [employer] Architect: MARY SOTELO ([id number])[facility])[address] [place] [address] Chloride [Moles/Vol] 106 mmol/L Normal 98-107 [facility] Comment on above: Performed By: #### L [id number] ####Obiee [employer] Solution Architect: MARY SOTELO ([id number])[facility])[address] [place] [address] CO2 [Moles/Vol] 23 mmol/L Normal 22-30 [facility] Comment on above: Performed By: #### L [id number] ####Obiee [employer] Solution Architect: MARY SOTELO ([id number])[facility])[address] [place] [address] Creatinine [Mass/Vol] 0.87 mg/dL Normal 0.52-1.04 [facility] Comment on above: Performed By: #### L [id number] ####Obiee [employer] Solution Architect: MARY SOTELO ([id number])[facility])[address] [place] [address] GLOMERULAR FILTRATION RATE ML/MIN/1.73 SQ M.PREDICTED 74.5 mL/min/1.73m*2 Normal >60.0 [facility] Comment on above: Result Comment: Calc ulation based on the Chronic Kidney Disease Epidemiology Collaboration (CKD-EPI) equation refit without adjustment for race Performed By: #### L [id number] ####Ob[employer]e [employer] Architect: MARY SOTELO ([id number])[facility])[address] [place] [address] Glucose [Mass/Vol] 170 mg/dL High 70-100 [facility] Comment on above: Performed By: #### L [id number] ####Obiee [employer] Architect: MARY SOTELO ([id number])[facility])[address] [place] [address] Phosphate [Mass/Vol] 2.3 mg/dL Low 2.5-4.5 [facility] Comment on above: Performed By: #### L [id number] ####Ob[employer]e [employer] Architect: MARY SOTELO ([id number])[facility])[address] [place] [address] Potassium [Moles/Vol] 4.1 mmol/L Normal 3.5-5.1 [facility] Comment on above: Performed By: #### L [id number] ####Obiee [employer] Architect: MARY SOTELO ([id number])[facility])[address] [place] [address] Sodium [Moles/Vol] 132 mmol/L Low 135-145 [facility] Comment on above: Performed By: #### L [id number] ####Obiee [employer] Architect: MARY SOTELO ([id number])[facility])[address] [place] [address] Urea nitrogen [Mass/Vol] 13 mg/dL Normal 7-17 [facility] Comment on above: Performed By: #### L [id number] ####Obiee [employer] Solution Architect: MARY SOTELO ([id number])[facility])[address] [place] [address] Albumin [Mass/Vol] 2.0 g/dL Low 3.5-5.0 [facility] Comment on above: Performed By: #### L [id number] ####Obiee [employer] Solution Architect: MARY SOTELO ([id number])[facility])[address] [place] [address] [place] Anion gap [Moles/Vol] 2 mmol/L Low 3-13 [facility] Comment on above: Performed By: #### L [id number] ####Obiee [employer] Architect: MARY SOTELO ([id number])[facility])[address] [place] [address] Calcium [Mass/Vol] 7.4 mg/dL Low 8.4-10.4 [facility] Comment on above: Performed By: #### L [id number] ####Obiee [employer] Architect: MARY SOTELO ([id number])[facility] [place] [address] Chloride [Moles/Vol] 106 mmol/L Normal 98-107 [facility] Comment on above: Performed By: #### L [id number] ####Obiee [employer] Architect: MARY SOTELO ([id number])[facility] [place] [address] CO2 [Moles/Vol] 24 mmol/L Normal 22-30 [facility] Comment on above: Performed By: #### L [id number] ####Obiee [employer] Architect: MARY SOTELO ([id number])[facility])[address] [place] [address] Creatinine [Mass/Vol] 0.90 mg/dL Normal 0.52-1.04 [facility] Comment on above: Performed By: #### L [id number] ####Obiee [employer] Solution Architect: MARY SOTELO ([id number])[facility])[address] [place] [address] GLOMERULAR FILTRATION RATE ML/MIN/1.73 SQ M.PREDICTED 71.5 mL/min/1.73m*2 Normal >60.0 [facility] Comment on above: Result Comment: Calc ulation based on the Chronic Kidney Disease Epidemiology Collaboration (CKD-EPI) equation refit without adjustment for race Performed By: #### L [id number] ####Ob[employer]e [employer] Solution Architect: MARY SOTELO ([id number])[facility] [place] [address] Glucose [Mass/Vol] 119 mg/dL High 70-100 [facility] Comment on above: Performed By: #### L [id number] ####Obiee [employer] Architect: MARY SOTELO ([id number])[facility])[address] [place] [address] Phosphate [Mass/Vol] 2.6 mg/dL Normal 2.5-4.5 [facility] Comment on above: Performed By: #### L [id number] ####Obiee Ob[employer] Solution Architect: MARY SOTELO ([id number])[facility])[address] [place] [address] Potassium [Moles/Vol] 4.0 mmol/L Normal 3.5-5.1 [facility] Comment on above: Performed By: #### L [id number] ####Obiee Ob[employer] Solution Architect: MARY SOTELO ([id number])[facility])[address] [place] [address] Sodium [Moles/Vol] 133 mmol/L Low 135-145 [facility] Comment on above: Performed By: #### L [id number] ####Obiee [employer] Solution Architect: MARY SOTELO ([id number])[facility])[address] [place] [address] Urea nitrogen [Mass/Vol] 14 mg/dL Normal 7-17 [facility] Comment on above: Performed By: #### L [id number] ####Obiee [employer] Architect: MARY SOTELO ([id number])[facility])[address] [place] [address] Albumin [Mass/Vol] 2.1 g/dL Low 3.5-5.0 [facility] Comment on above: Performed By: #### L [id number] ####Obiee [employer] Solution Architect: MARY SOTELO ([id number])[facility])[address] [place] [address] Anion gap [Moles/Vol] 3 mmol/L Normal 3-13 [facility] Comment on above: Performed By: #### L [id number] ####Ob[employer]e [employer] Architect: MARY SOTELO ([id number])[facility])[address] [place] [address] Calcium [Mass/Vol] 7.8 mg/dL Low 8.4-10.4 [facility] Comment on above: Performed By: #### L [id number] ####Obiee [employer] Solution Architect: MARY SOTELO ([id number])[facility] [place] [address] Chloride [Moles/Vol] 105 mmol/L Normal 98-107 [facility] Comment on above: Performed By: #### L [id number] ####Obiee [employer] Solution Architect: MARY SOTELO ([id number])[facility])[address] [place] [address] CO2 [Moles/Vol] 25 mmol/L Normal 22-30 [facility] Comment on above: Performed By: #### L [id number] ####Obiee [employer] Solution Architect: MARY SOTELO ([id number])[facility])[address] [place] [address] Creatinine [Mass/Vol] 0.85 mg/dL Normal 0.52-1.04 [facility] Comment on above: Performed By: #### L [id number] ####Ob[employer]e [employer] Architect: MARY SOTELO ([id number])[facility])[address] [place] [address] [place] GLOMERULAR FILTRATION RATE ML/MIN/1.73 SQ M.PREDICTED 76.6 mL/min/1.73m*2 Normal >60.0 [facility] Comment on above: Result Comment: Calc ulation based on the Chronic Kidney Disease Epidemiology Collaboration (CKD-EPI) equation refit without adjustment for race Performed By: #### L [id number] ####Obiee [employer] Solution Architect: MARY SOTELO ([id number])[facility])[address] [place] [address] [place] Glucose [Mass/Vol] 161 mg/dL High 70-100 [facility] Comment on above: Performed By: #### L [id number] ####Obiee [employer] Solution Architect: MARY SOTELO ([id number])[facility])[address] [place] [address] [place] Phosphate [Mass/Vol] 3.0 mg/dL Normal 2.5-4.5 [facility] Comment on above: Performed By: #### L [id number] ####Obiee [employer] Solution Architect: MARY SOTELO ([id number])[facility])[address] [place] [address] Potassium [Moles/Vol] 4.2 mmol/L Normal 3.5-5.1 [facility] Comment on above: Performed By: #### L [id number] ####Obiee [employer] Solution Architect: MARY SOTELO ([id number])[facility])[address] [place] [address] Sodium [Moles/Vol] 133 mmol/L Low 135-145 [facility] Comment on above: Performed By: #### L [id number] ####Obiee [employer] Solution Architect: MARY SOTELO ([id number])[facility])[address] [place] [address] Urea nitrogen [Mass/Vol] 15 mg/dL Normal 7-17 [facility] Comment on above: Performed By: #### L [id number] ####Obiee [employer] Solution Architect: MARY SOTELO ([id number])[facility])[address] [place] [address] Renal function 2000 panelon 08-01-2024 Albumin [Mass/Vol] 2.1 g/dL Low 3.5 - 5.0 g/dL [facility] Anion gap [Moles/Vol] 3 mmol/L 3 - 13 mmol/L [facility] Calcium [Mass/Vol] 7.2 mg/dL Low 8.4 - 10. 4 mg/dL [facility] Chloride [Moles/Vol] 106 mmol/L 98 - 10 7 mmol/L [facility] CO2 [Moles/Vol] 23 mmol/L 22 - 30 mmol/L [facility] Creatinine [Mass/Vol] 0.87 mg/dL 0.52 - 1.04 mg/dL [facility] GFR/1.73 sq M.predicted (S/P/Bld) [Vol rate/Area] 74.5 mL/min - PINF [facility] Glucose [Mass/Vol] 170 mg/dL High 70 - 100 mg/dL [facility] Interpretation and review of laboratory results Abnormal [facility] Phosphate [Mass/Vol] 2.3 mg/dL Low 2.5 - 4 .5 mg/dL [facility] Potassium [Moles/Vol] 4.1 mmol/L 3.5 - 5.1 mmol/L [facility] Sodium [Moles/Vol] 132 mmol/L Low 135 - 145 mmol/L [facility] Urea nitrogen [Mass/Vol] 13 mg/dL 7 - 17 mg/dL [facility] Albumin [Mass/Vol] 2.0 g/dL Low 3.5 - 5.0 g/dL [facility] Anion gap [Moles/Vol] 2 mmol/L Low 3 - 13 mmol/L [facility] Calcium [Mass/Vol] 7.4 mg/dL Low 8.4 - 10. 4 mg/dL [facility] Chloride [Moles/Vol] 106 mmol/L 98 - 10 7 mmol/L [facility] CO2 [Moles/Vol] 24 mmol/L 22 - 30 mmol/L [facility] Creatinine [Mass/Vol] 0.90 mg/dL 0.52 - 1.04 mg/dL [facility] GFR/1.73 sq M.predicted (S/P/Bld) [Vol rate/Area] 71.5 mL/min - PINF [facility] Glucose [Mass/Vol] 119 mg/dL High 70 - 100 mg/dL [facility] Interpretation and review of laboratory results Abnormal [facility] Phosphate [Mass/Vol] 2.6 mg/dL 2.5 - 4 .5 mg/dL [facility] Potassium [Moles/Vol] 4.0 mmol/L 3.5 - 5.1 mmol/L [facility] Sodium [Moles/Vol] 133 mmol/L Low 135 - 145 mmol/L [facility] Urea nitrogen [Mass/Vol] 14 mg/dL 7 - 17 mg/dL [facility] Albumin [Mass/Vol] 2.1 g/dL Low 3.5 - 5.0 g/dL [facility] Anion gap [Moles/Vol] 3 mmol/L 3 - 13 mmol/L [facility] Calcium [Mass/Vol] 7.8 mg/dL Low 8.4 - 10. 4 mg/dL [facility] Chloride [Moles/Vol] 105 mmol/L 98 - 10 7 mmol/L [facility] CO2 [Moles/Vol] 25 mmol/L 22 - 30 mmol/L [facility] Creatinine [Mass/Vol] 0.85 mg/dL 0.52 - 1.04 mg/dL [facility] GFR/1.73 sq M.predicted (S/P/Bld) [Vol rate/Area] 76.6 mL/min - PINF [facility] Glucose [Mass/Vol] 161 mg/dL High 70 - 100 mg/dL [facility] Interpretation and review of laboratory results Abnormal [facility] Phosphate [Mass/Vol] 3.0 mg/dL 2.5 - 4 .5 mg/dL [facility] Potassium [Moles/Vol] 4.2 mmol/L 3.5 - 5.1 mmol/L [facility] Sodium [Moles/Vol] 133 mmol/L Low 135 - 145 mmol/L [facility] Urea nitrogen [Mass/Vol] 15 mg/dL 7 - 17 mg/dL [facility] ABO and Rh group Confirm Nom (Bld)on 07-31-2024 ABO group Nom (Bld) O [facility] D Ag Ql (RBC) Positive [facility] BLOOD GAS ARTERIALon 024 Base excess Calc (Bld) [Moles/Vol] -0.9000 mmol/L Normal -3.0-3.0 [facility] Comment on above: Performed By: #### L [id number] ####[employer] Architect: MARY SOTELO ([id number])[facility])[address] [place] [address] CO2 [Moles/Vol] 26.4 mmol/L Normal 23.0-27.0 [facility] Comment on above: Performed By: #### L AB76 ####Obiee [employer] Solution Architect: MARY SOTELO ([id number])[facility])[address] [place] [address] HCO3 (Bld) [Moles/Vol] 25.0 mmol/L Normal 21.0-25.0 [facility] Comment on above: Performed By: #### L AB76 ####Ob[employer]e [employer] Architect: MARY SOTELO ([id number])[facility] [address] Hemoglobin (Bld) [Mass/Vol] 7.1 g/dL Normal Screen only [facility] Comment on above: Performed By: #### L AB76 ####Ob[employer] Architect: MARY SOTELO ([id number])[facility])[address] [place] [address] OXYGEN SATURATION (%) IN ARTERIAL BLOOD 98.0 % Normal 95.0-100.0 [facility] Comment on above: Performed By: #### L AB76 ####Ob[employer]e [employer] Architect: MARY SOTELO ([id number])[facility])[address] [place] [address] PCO2 ARTERIAL 47.9 mm Hg High >35.0-<45.0 [facility] Comment on above: Performed By: #### L AB76 ####Ob[employer]e [employer] Architect: MARY SOTELO ([id number])[facility])[address] [place] [address] PH ARTERIAL 7.335 Low 7.350-7.450 [facility] Comment on above: Performed By: #### L AB76 ####Ob[employer]e [employer] Architect: MARY SOTELO ([id number])[facility])[address] [place] [address] PO2 ARTERIAL 143.8 mm Hg High 80.0-100.0 [facility] Comment on above: Performed By: #### L AB76 ####[employer] Architect: MARY SOTELO ([id number])[address] SOURCE OF OXYGEN Nasal cannula Normal [facility] Comment on above: Performed By: #### L AB76 ####Ob[employer] Architect: MARY SOTELO ([id number])[address] BLOOD TYPE AND SCREEN GELon 07-31-2024 ABO GROUPING O Normal [facility] Comment on above: Performed By: #### L [id number] ####Ob[employer]e [employer] Solution Architect: MARY [id number])[facility] ([facility])[address] [place] [address] RH TYPE IN BLOOD Positive Normal [facility] Comment on above: Performed By: #### L [id number] ####Ob[employer]e [employer] Solution Architect: MARY SOTELO ([id number])[facility] ([facility])[address] [place] [address] Blood type and Crossmatch pa eunice (Bld)on 07-31-2024 ABO group Nom (Bld) O [facility] Blood group antibody screen GEL Ql Negative [facility] D Ag Ql (RBC) Positive [facility] CALCIUM, IONIZEDon 4 CALCIUM IONIZED 4.70 mg/dL Normal 4.30-5.20 [facility] Comment on above: Performed By: #### L AB54 ####Ob[employer]e [employer] Architect: MARY SOTELO ([id number])[facility])[address] [place] [address] PH, IONIZED CALCIUM 7.31 Normal 7.31-7.46 [facility] Comment on above: Performed By: #### L AB54 ####Ob[employer]e [employer] Architect: MARY SOTELO ([id number])[facility])[address] [place] [address] CALCIUM IONIZED 4.80 mg/dL Normal 4.30-5.20 [facility] Comment on above: Performed By: #### L AB54 ####Ob[employer]e [employer] Architect: MARY SOTELO ([id number])[facility])[address] [place] [address] PH, IONIZED CALCIUM 7.36 Normal 7.31-7.46 [facility] Comment on above: Performed By: #### L AB54 ####Ob[employer]e [employer] Architect: MARY SOTELO ([id number])[facility])[address] [place] [address] CALCIUM IONIZED 4.90 mg/dL Normal 4.30-5.20 [facility] Comment on above: Performed By: #### L AB54 ####Ob[employer]e [employer] Architect: MARY SOTELO ([id number])[facility] ([facility])[address] [place] [address] PH, IONIZED CALCIUM 7.35 Normal 7.31-7.46 [facility] Comment on above: Performed By: #### L AB54 ####Obiee [employer] Architect: MARY SOTELO ([id number])[facility])[address] [place] [address] CALCIUM IONIZED 4.80 mg/dL Normal 4.30-5.20 [facility] Comment on above: Performed By: #### L AB54 ####Ob[employer]e [employer] Solution Architect: MARY SOTELO ([id number])[facility])[address] [place] [address] PH, IONIZED CALCIUM 7.38 Normal 7.31-7.46 [facility] Comment on above: Performed By: #### L AB54 ####Ob[employer] Architect: MARY SOTELO ([id number])[facility])[address] [place] [address] CBC (HEMOGRAM)on 07-31-2024 Erythrocyte distribution width (RBC) [Ratio] 15.2 % High 11.5-15.0 [facility] Comment on above: Performed By: #### L [id number] ####[employer] Architect: MARY SOTELO ([id number])[facility])[address] [place] [address] Hematocrit (Bld) [Volume fraction] 21.6 % Low 35.0-47.0 [facility] Comment on above: Performed By: #### L [id number] ####[employer] Architect: MARY SOTELO ([id number])[facility])[address] [place] [address] Hemoglobin (Bld) [Mass/Vol] 6.8 g/dL Critically low 11.7-16.0 [facility] Comment on above: Performed By: #### L [id number] ####[employer] Architect: MARY SOTELO ([id number])[facility])[address] [place] [address] MCH (RBC) [Entitic mass] 28.7 pg Normal 26.0-34.0 [facility] Comment on above: Performed By: #### L AB294 ####[employer] Architect: MARY SOTELO ([id number])[facility])[address] [place] [address] MCHC 31.5 % Normal 30.5-36.0 [facility] Comment on above: Performed By: #### L [id number] ####[employer] Architect: MARY SOTELO ([id number])[facility])[address] [place] [address] MCV (RBC) [Entitic vol] 91.1 fL Normal 77.0-99.0 [facility] Comment on above: Performed By: #### L [id number] ####[employer] Architect: MARY SOTELO ([id number])[facility])[address] [place] [address] Platelet mean volume (Bld) [Entitic vol] 10.9 fL Normal 9.0-12.7 [facility] Comment on above: Performed By: #### L [id number] ####[employer] Architect: MARY SOTELO ([id number])[facility])[address] [place] [address] Platelets (Bld) [#/Vol] 158 10*3/uL Normal 140-440 [facility] Comment on above: Performed By: #### L [id number] ####[employer] Architect: MARY SOTELO ([id number])[facility])[address] [place] [address] RBC (Bld) [#/Vol] 2.37 10*6/uL Low 3.80-5.20 [facility] Comment on above: Performed By: #### L AB294 ####[employer] Architect: MARY SOTELO ([id number])[facility])[address] [place] [address] WBC (Bld) [#/Vol] 15.0 10*3/uL High 3.6-10.7 [facility] Comment on above: Performed By: #### L [id number] ####[employer] Architect: MARY SOTELO ([id number])[facility] ([address] CBC W Auto Differential pane l (Bld)on 07-31-2024 Basophils (Bld) [#/Vol] 0.0 10*3/uL 0.0 - 0.2 10*3/uL [facility] Basophils/100 WBC (Bld) 0.1 % 0.0 - 2.0 % [facility] Eosinophils (Bld) [#/Vol] 0.0 10*3/uL 0.0 - 0.5 10*3/uL [facility] Eosinophils/100 WBC (Bld) 0.2 % 0.0 - 6.0 % [facility] Erythrocyte distribution width (RBC) [Ratio] 15.2 % High 11.5 - 15.0 % [facility] Hematocrit (Bld) [Volume fraction] 22.3 % Low 35.0 - 47.0 % [facility] Hemoglobin (Bld) [Mass/Vol] 7.1 g/dL Low 11.7 - 16.0 g/dL [facility] Immature granulocytes (Bld) [#/Vol] 0.0 10*3/uL NINF - 0.1 10*3/uL [facility] Immature granulocytes/100 WBC (Bld) 0.3 % 0.0 - 2.0 % [facility] Interpretation and review of laboratory results Abnormal [facility] Lymphocytes (Bld) [#/Vol] 0.6 10*3/uL Low 1.0 - 4.3 10*3/uL [facility] Lymphocytes/100 WBC (Bld) 4.7 % Low 15.0 - 45.0 % [facility] MCH (RBC) [Entitic mass] 29.6 pg 26.0 - 34.0 pg [facility] MCHC (RBC) [Mass/Vol] 31.8 % 30.5 - 36.0 % [facility] MCV (RBC) [Entitic vol] 92.9 fL 77.0 - 99.0 fL [facility] Monocytes (Bld) [#/Vol] 0.6 10*3/uL 0.0 - 0.9 10*3/uL [facility] Monocytes/100 WBC (Bld) 4.4 % Low 5.0 - 13.0 % [facility] Neutrophils (Bld) [#/Vol] 12.0 10*3/uL High 1.8 - 7.5 10*3/uL [facility] Neutrophils/100 WBC (Bld) 90.3 % High 38.0 - 82.0 % [facility] Nucleated RBC/100 WBC (Bld) [Ratio] 0.0 % [facility] Platelet mean volume (Bld) [Entitic vol] 10.7 fL 9.0 - 12.7 fL [facility] Platelets (Bld) [#/Vol] 146 10*3/uL 140 - 440 10*3/uL [facility] RBC (Bld) [#/Vol] 2.40 10*6/uL Low 3.80 - 5.2 0 10*6/uL [facility] WBC (Bld) [#/Vol] 13.3 10*3/uL High 3.6 - 10.7 10*3/uL [facility] CBC W Auto Differential pane l (Bld)Ordered By: Olamide Orozco on 07-31-2024 Basophils (Bld) [#/Vol] 0.0 10*3/uL 0.0 - 0.2 10*3/uL [facility] Basophils/100 WBC (Bld) 0.1 % 0.0 - 2.0 % [facility] Eosinophils (Bld) [#/Vol] 0.0 10*3/uL 0.0 - 0.5 10*3/uL [facility] Eosinophils/100 WBC (Bld) 0.2 % 0.0 - 6.0 % [facility] Erythrocyte distribution width (RBC) [Ratio] 15.1 % High 11.5 - 15.0 % [facility] Hematocrit (Bld) [Volume fraction] 22.9 % Low 35.0 - 47.0 % [facility] Hemoglobin (Bld) [Mass/Vol] 7.2 g/dL Low 11.7 - 16.0 g/dL [facility] Immature granulocytes (Bld) [#/Vol] 0.1 10*3/uL High NINF - 0.1 10*3/uL [facility] Immature granulocytes/100 WBC (Bld) 0.4 % 0.0 - 2.0 % [facility] Interpretation and review of laboratory results Abnormal [facility] Lymphocytes (Bld) [#/Vol] 0.5 10*3/uL Low 1.0 - 4.3 10*3/uL [facility] Lymphocytes/100 WBC (Bld) 3.6 % Low 15.0 - 45.0 % [facility] MCH (RBC) [Entitic mass] 28.9 pg 26.0 - 34.0 pg [facility] MCHC (RBC) [Mass/Vol] 31.4 % 30.5 - 36.0 % [facility] MCV (RBC) [Entitic vol] 92.0 fL 77.0 - 99.0 fL [facility] Monocytes (Bld) [#/Vol] 0.3 10*3/uL 0.0 - 0.9 10*3/uL [facility] Monocytes/100 WBC (Bld) 2.0 % Low 5.0 - 13.0 % [facility] Neutrophils (Bld) [#/Vol] 13.2 10*3/uL High 1.8 - 7.5 10*3/uL [facility] Neutrophils/100 WBC (Bld) 93.7 % High 38.0 - 82.0 % [facility] Nucleated RBC/100 WBC (Bld) [Ratio] 0.0 % [facility] Platelet mean volume (Bld) [Entitic vol] 10.5 fL 9.0 - 12.7 fL [facility] Platelets (Bld) [#/Vol] 135 10*3/uL Low 140 - 440 10*3/uL [facility] RBC (Bld) [#/Vol] 2.49 10*6/uL Low 3.80 - 5.2 0 10*6/uL [facility] WBC (Bld) [#/Vol] 14.0 10*3/uL High 3.6 - 10.7 10*3/uL [facility] CBC WITH AUTO DIFFERENTIALon 07-31-2024 Basophils (Bld) [#/Vol] 0.0 10*3/uL Normal 0.0-0.2 [facility] Comment on above: Performed By: #### L [id number] ####[employer] Architect: MARY SOTELO ([id number])[facility] ([address] Basophils/100 WBC (Bld) 0.1 % Normal 0.0-2.0 [facility] Comment on above: Performed By: #### L [id number] ####[employer] Architect: MARY SOTELO ([id number])[facility])[address] [place] [address] Eosinophils (Bld) [#/Vol] 0.0 10*3/uL Normal 0.0-0.5 [facility] Comment on above: Performed By: #### L [id number] ####[employer] Architect: MARY SOTELO ([id number])[facility])[address] [place] [address] Eosinophils/100 WBC (Bld) 0.2 % Normal 0.0-6.0 [facility] Comment on above: Performed By: #### L [id number] ####[employer] Architect: MARY SOTELO ([id number])[facility])[address] [place] [address] Erythrocyte distribution width (RBC) [Ratio] 15.2 % High 11.5-15.0 [facility] Comment on above: Performed By: #### L [id number] ####[employer] Architect: MARY SOTELO ([id number])[facility])[address] [place] [address] Hematocrit (Bld) [Volume fraction] 22.3 % Low 35.0-47.0 [facility] Comment on above: Performed By: #### L [id number] ####[employer] Architect: MARY SOTELO ([id number])[facility])[address] [place] [address] Hemoglobin (Bld) [Mass/Vol] 7.1 g/dL Low 11.7-16.0 [facility] Comment on above: Performed By: #### L [id number] ####[employer] Architect: MARY SOTELO ([id number])[facility])[address] [place] [address] IMMATURE GRANS % 0.3 % Normal 0.0-2.0 [facility] Comment on above: Performed By: #### L [id number] ####[employer] Architect: MARY SOTELO ([id number])[facility])[address] [place] [address] IMMATURE GRANS ABSOLUTE 0.0 10*3/uL Normal <0.1 [facility] Comment on above: Performed By: #### L [id number] ####[employer] Architect: MARY SOTELO ([id number])[facility])[address] [place] [address] Lymphocytes (Bld) [#/Vol] 0.6 10*3/uL Low 1.0-4.3 [facility] Comment on above: Performed By: #### L [id number] ####[employer] Architect: MARY SOTELO ([id number])[address] Lymphocytes/100 WBC (Bld) 4.7 % Low 15.0-45.0 [facility] Comment on above: Performed By: #### L [id number] ####[employer] Architect: MARY SOTELO ([id number])[facility])[address] [place] [address] MCH (RBC) [Entitic mass] 29.6 pg Normal 26.0-34.0 [facility] Comment on above: Performed By: #### L [id number] ####[employer] Architect: MAYR SOTELO ([id number])[facility])[address] [place] [address] MCHC 31.8 % Normal 30.5-36.0 [facility] Comment on above: Performed By: #### L [id number] ####[employer] Architect: MARY SOTELO ([id number])[address] MCV (RBC) [Entitic vol] 92.9 fL Normal 77.0-99.0 [facility] Comment on above: Performed By: #### L [id number] ####[employer] Architect: MARY SOTELO ([id number])[facility] [place] [address] Monocytes (Bld) [#/Vol] 0.6 10*3/uL Normal 0.0-0.9 [facility] Comment on above: Performed By: #### L [id number] ####[employer] Architect: MARY SOTELO ([id number])[facility])[address] [place] [address] Monocytes/100 WBC (Bld) 4.4 % Low 5.0-13.0 [facility] Comment on above: Performed By: #### L [id number] ####[employer] Architect: MARY SOTELO ([id number])[facility])[address] [place] [address] NEUTROPHILS ABSOLUTE 12.0 10*3/uL High 1.8-7.5 [facility] Comment on above: Performed By: #### L [id number] ####[employer] Architect: MARY SOTELO ([id number])[facility] ([facility])[address] [place] [address] Neutrophils/100 WBC (Bld) 90.3 % High 38.0-82.0 [facility] Comment on above: Performed By: #### L [id number] ####[employer] Architect: MARY SOTELO ([id number])[facility])[address] [place] [address] NRBC 0.0 /100 WBCs Normal 0.0-2.0 [facility] Comment on above: Performed By: #### L [id number] ####[employer] Architect: MARY SOTELO ([id number])[facility] ([facility])[address] [place] [address] Platelet mean volume (Bld) [Entitic vol] 10.7 fL Normal 9.0-12.7 [facility] Comment on above: Performed By: #### L [id number] ####[employer] Architect: MARY SOTELO ([id number])[facility] ([facility])[address] [place] [address] Platelets (Bld) [#/Vol] 146 10*3/uL Normal 140-440 [facility] Comment on above: Performed By: #### L [id number] ####[employer] Architect: MARY SOTELO ([id number])[facility])[address] [place] [address] RBC (Bld) [#/Vol] 2.40 10*6/uL Low 3.80-5.20 [facility] Comment on above: Performed By: #### L [id number] ####[employer] Architect: MARY SOTELO ([id number])[facility])[address] [place] [address] WBC (Bld) [#/Vol] 13.3 10*3/uL High 3.6-10.7 [facility] Comment on above: Performed By: #### L [id number] ####[employer] Architect: MARY SOTELO ([id number])[facility])[address] [place] [address] Basophils (Bld) [#/Vol] 0.0 10*3/uL Normal 0.0-0.2 [facility] Comment on above: Performed By: #### L [id number] ####[employer] Architect: MARY SOTELO ([id number])[facility])[address] [place] [address] Basophils/100 WBC (Bld) 0.1 % Normal 0.0-2.0 [facility] Comment on above: Performed By: #### L [id number] ####[employer] Architect: MARY SOTELO ([id number])[facility])[address] [place] [address] Eosinophils (Bld) [#/Vol] 0.0 10*3/uL Normal 0.0-0.5 [facility] Comment on above: Performed By: #### L [id number] ####[employer] Architect: MARY SOTELO ([id number])[facility])[address] [place] [address] Eosinophils/100 WBC (Bld) 0.2 % Normal 0.0-6.0 [facility] Comment on above: Performed By: #### L [id number] ####[employer] Architect: MARY SOTELO ([id number])[address] Erythrocyte distribution width (RBC) [Ratio] 15.1 % High 11.5-15.0 [facility] Comment on above: Performed By: #### L [id number] ####[employer] Architect: MARY SOTELO ([id number])[address] Hematocrit (Bld) [Volume fraction] 22.9 % Low 35.0-47.0 [facility] Comment on above: Performed By: #### L [id number] ####[employer] Architect: MARY SOTELO ([id number])[address] Hemoglobin (Bld) [Mass/Vol] 7.2 g/dL Low 11.7-16.0 [facility] Comment on above: Performed By: #### L [id number] ####[employer] Architect: MARY SOTELO ([id number])[address] IMMATURE GRANS % 0.4 % Normal 0.0-2.0 [facility] Comment on above: Performed By: #### L [id number] ####[employer] Architect: MARY SOTELO ([id number])[address] IMMATURE GRANS ABSOLUTE 0.1 10*3/uL High <0.1 [facility] Comment on above: Performed By: #### L [id number] ####[employer] Architect: MARY SOTELO ([id number])[address] Lymphocytes (Bld) [#/Vol] 0.5 10*3/uL Low 1.0-4.3 [facility] Comment on above: Performed By: #### L [id number] ####[employer] Architect: MARY SOTELO ([id number])[facility])[address] [place] [address] Lymphocytes/100 WBC (Bld) 3.6 % Low 15.0-45.0 [facility] Comment on above: Performed By: #### L [id number] ####[employer] Architect: MARY SOTELO ([id number])[facility])[address] [place] [address] MCH (RBC) [Entitic mass] 28.9 pg Normal 26.0-34.0 [facility] Comment on above: Performed By: #### L [id number] ####[employer] Architect: MARY SOTELO ([id number])[facility])[address] [place] [address] MCHC 31.4 % Normal 30.5-36.0 [facility] Comment on above: Performed By: #### L [id number] ####[employer] Architect: MARY SOTELO ([id number])[facility])[address] [place] [address] MCV (RBC) [Entitic vol] 92.0 fL Normal 77.0-99.0 [facility] Comment on above: Performed By: #### L [id number] ####[employer] Architect: MARY SOTELO ([id number])[facility])[address] [place] [address] Monocytes (Bld) [#/Vol] 0.3 10*3/uL Normal 0.0-0.9 [facility] Comment on above: Performed By: #### L [id number] ####[employer] Architect: MARY SOTELO ([id number])[facility])[address] [place] [address] Monocytes/100 WBC (Bld) 2.0 % Low 5.0-13.0 [facility] Comment on above: Performed By: #### L [id number] ####[employer] Architect: MARY SOTELO ([id number])[facility])[address] [place] [address] NEUTROPHILS ABSOLUTE 13.2 10*3/uL High 1.8-7.5 [facility] Comment on above: Performed By: #### L [id number] ####[employer] Architect: MARY SOTELO ([id number])[facility] ([facility])[address] [place] [address] Neutrophils/100 WBC (Bld) 93.7 % High 38.0-82.0 [facility] Comment on above: Performed By: #### L [id number] ####[employer] Architect: MARY SOTELO ([id number])[facility] ([facility])[address] [place] [address] NRBC 0.0 /100 WBCs Normal 0.0-2.0 [facility] Comment on above: Performed By: #### L [id number] ####[employer] Architect: MARY SOTELO ([id number])[facility] ([facility])[address] [place] [address] Platelet mean volume (Bld) [Entitic vol] 10.5 fL Normal 9.0-12.7 [facility] Comment on above: Performed By: #### L [id number] ####[employer] Architect: MARY SOTELO ([id number])[facility] ([facility])[address] [place] [address] [place] Platelets (Bld) [#/Vol] 135 10*3/uL Low 140-440 [facility] Comment on above: Performed By: #### L [id number] ####[employer] Architect: MARY SOTELO ([id number])[facility] ([facility])[address] [place] [address] [place] RBC (Bld) [#/Vol] 2.49 10*6/uL Low 3.80-5.20 [facility] Comment on above: Performed By: #### L [id number] ####[employer] Architect: MARY SOTELO ([id number])[facility] ([facility])[address] [place] [address] [place] WBC (Bld) [#/Vol] 14.0 10*3/uL High 3.6-10.7 [facility] Comment on above: Performed By: #### L [id number] ####[employer] Architect: MARY SOTELO ([id number])[facility] ([address] CBC panel Auto (Bld)Ordered By: Akbar Warner on 07-31-2024 Erythrocyte distribution width (RBC) [Ratio] 15.2 % High 11.5 - 15.0 % [facility] Hematocrit (Bld) [Volume fraction] 21.6 % Low 35.0 - 47.0 % [facility] Hemoglobin (Bld) [Mass/Vol] 6.8 g/dL Critically low 11.7 - 16.0 g/dL [facility] Interpretation and review of laboratory results Abnormal [facility] MCH (RBC) [Entitic mass] 28.7 pg 26.0 - 34.0 pg [facility] MCHC (RBC) [Mass/Vol] 31.5 % 30.5 - 36.0 % [facility] MCV (RBC) [Entitic vol] 91.1 fL 77.0 - 99.0 fL [facility] Platelet mean volume (Bld) [Entitic vol] 10.9 fL 9.0 - 12.7 fL [facility] Platelets (Bld) [#/Vol] 158 10*3/uL 140 - 440 10*3/uL [facility] RBC (Bld) [#/Vol] 2.37 10*6/uL Low 3.80 - 5.2 0 10*6/uL [facility] WBC (Bld) [#/Vol] 15.0 10*3/uL High 3.6 - 10.7 10*3/uL [facility] Calcium.ionized [Moles/Vol]o n 07-31-2024 Calcium.ionized (Bld) [Moles/Vol] 4.70 mg/dL 4.30 - 5.20 mg/dL [facility] Interpretation and review of laboratory results Normal [facility] PH, IONIZED CALCIUM 7.31 7.31 - 7.46 [facility] Calcium.ionized (Bld) [Moles/Vol] 4.80 mg/dL 4.30 - 5.20 mg/dL [facility] Interpretation and review of laboratory results Normal [facility] PH, IONIZED CALCIUM 7.36 7.31 - 7.46 [facility] Calcium.ionized (Bld) [Moles/Vol] 4.90 mg/dL 4.30 - 5.20 mg/dL [facility] Interpretation and review of laboratory results Normal [facility] PH, IONIZED CALCIUM 7.35 7.31 - 7.46 [facility] Calcium.ionized (Bld) [Moles/Vol] 4.80 mg/dL 4.30 - 5.20 mg/dL [facility] Interpretation and review of laboratory results Normal [facility] PH, IONIZED CALCIUM 7.38 7.31 - 7.46 [facility] HEMOGLOBIN AND HEMATOCRIT, B LOODon 07-31-2024 Hematocrit (Bld) [Volume fraction] 25.4 % Low 35.0-47.0 [facility] Comment on above: Order Comment: Recom mend 1 hour post transfusion Performed By: #### L [id number] ####[employer] Architect: MARY SOTELO ([id number])[facility] ([facility])[address] [place] [address] Hemoglobin (Bld) [Mass/Vol] 8.0 g/dL Low 11.7-16.0 [facility] Comment on above: Order Comment: Recom mend 1 hour post transfusion Performed By: #### L [id number] ####[employer] Architect: MARY SOTELO ([id number])[facility] ([facility])[address] [place] [address] Hemoglobin (Bld) [Mass/Vol]o n 07-31-2024 Hematocrit (Bld) [Volume fraction] 25.4 % Low 35.0 - 47.0 % [facility] Interpretation and review of laboratory results Abnormal [facility] IDNon 07-31-2024 IDN Normal [facility] Laboratory - Chemistry and C hemistry - challengeon 07-31-2024 Glucose [Mass/Vol] 107 mg/dL High 70 - 100 mg/dL [facility] Glucose [Mass/Vol] 118 mg/dL High 70 - 100 mg/dL [facility] Glucose [Mass/Vol] 61 mg/dL Low 70 - 100 mg/dL [facility] Glucose [Mass/Vol] 127 mg/dL High 70 - 100 mg/dL [facility] Base excess Calc (Bld) [Moles/Vol] -0.9000 mmol/L -3.0 - 3.0 mmol/L [facility] CO2 (Bld) [Partial pressure] 47.9 mm[Hg] High - PINF [facility] CO2 [Moles/Vol] 26.4 mmol/L 23.0 - 27.0 mmol/L [facility] HCO3 (Bld) [Moles/Vol] 25.0 mmol/L 21.0 - 25.0 mmol/L [facility] Oxygen (Bld) [Partial pressure] 143.8 mm[Hg] High [facility] pH (Bld) 7.335 [pH] Low 7.350 - 7.450 [facility] Glucose [Mass/Vol] 177 mg/dL High 70 - 100 mg/dL [facility] Glucose [Mass/Vol] 237 mg/dL High 70 - 100 mg/dL [facility] Laboratory - Hematology and Cell countson 07-31-2024 Hemoglobin (Bld) [Mass/Vol] 8.0 g/dL Low 11.7 - 16.0 g/dL [facility] Hemoglobin (Bld) [Mass/Vol] 7.1 g/dL Screen only [facility] No Panel Informationon 07-31 Interpretation and review of laboratory results Abnormal [facility] Interpretation and review of laboratory results Abnormal [facility] Interpretation and review of laboratory results Abnormal [facility] Blood Expiration Date [id number] S [facility] Crossmatch interpretation COMP [facility] Dispense Status Transfused [facility] Product Blood Type 5100 [facility] PRODUCT CODE [id number] [facility] ABO O [facility] Unit Number [id number] [facility] alth Unit RH Positive [facility] Unit Volume 300 mL [facility] Interpretation and review of laboratory results Abnormal [facility] Interpretation and review of laboratory results Abnormal [facility] Source Of Oxygen Nasal cannula [facility] Interpretation and review of laboratory results Abnormal [facility] Interpretation and review of laboratory results Abnormal [facility] Progress Noteon 07-31-2024 Progress Note Normal [facility] Progress Note Normal [facility] Progress Note Normal [facility] RENAL FUNCTION PANELon 07-31 Albumin [Mass/Vol] 1.9 g/dL Low 3.5-5.0 [facility] Comment on above: Performed By: #### L [id number] ####[employer] Architect: MARY SOTELO ([id number])[facility] [place] [address] Anion gap [Moles/Vol] 1 mmol/L Low 3-13 [facility] Comment on above: Performed By: #### L [id number] ####[employer] Architect: MARY SOTELO ([id number])[facility] ([facility])[address] [place] [address] Calcium [Mass/Vol] 8.2 mg/dL Low 8.4-10.4 [facility] Comment on above: Performed By: #### L [id number] ####[employer] Architect: MARY SOTELO ([id number])[facility] [place] [address] Chloride [Moles/Vol] 104 mmol/L Normal 98-107 [facility] Comment on above: Performed By: #### L [id number] ####[employer] Architect: MARY SOTELO ([id number])[facility] ([facility])[address] [place] [address] CO2 [Moles/Vol] 25 mmol/L Normal 22-30 [facility] Comment on above: Performed By: #### L [id number] ####[employer] Architect: MARY SOTELO ([id number])[facility] ([facility])[address] [place] [address] Creatinine [Mass/Vol] 0.81 mg/dL Normal 0.52-1.04 [facility] Comment on above: Performed By: #### L [id number] ####[employer] Architect: MARY SOTELO ([id number])[facility] [place] [address] [place] GLOMERULAR FILTRATION RATE ML/MIN/1.73 SQ M.PREDICTED 81.2 mL/min/1.73m*2 Normal >60.0 [facility] Comment on above: Result Comment: Calc ulation based on the Chronic Kidney Disease Epidemiology Collaboration (CKD-EPI) equation refit without adjustment for race Performed By: #### L [id number] ####[employer] Architect: MARY SOTELO ([id number])[facility] ([facility])[address] [place] [address] Glucose [Mass/Vol] 173 mg/dL High 70-100 [facility] Comment on above: Performed By: #### L [id number] ####[employer] Architect: MARY SOTELO ([id number])[facility] ([facility])[address] [place] [address] Phosphate [Mass/Vol] 3.1 mg/dL Normal 2.5-4.5 [facility] Comment on above: Performed By: #### L [id number] ####[employer] Architect: MARY SOTELO ([id number])[facility] ([facility])[address] [place] [address] [place] Potassium [Moles/Vol] 3.9 mmol/L Normal 3.5-5.1 [facility] Comment on above: Performed By: #### L [id number] ####[employer] Architect: MARY SOTELO ([id number])[facility] ([facility])[address] [place] [address] Sodium [Moles/Vol] 130 mmol/L Low 135-145 [facility] Comment on above: Performed By: #### L [id number] ####[employer] Architect: MARY SOTELO ([id number])[facility])[address] [place] [address] [place] Urea nitrogen [Mass/Vol] 16 mg/dL Normal 7-17 [facility] Comment on above: Performed By: #### L [id number] ####[employer] Architect: MARY SOTELO ([id number])[facility])[address] [place] [address] [place] Albumin [Mass/Vol] 1.9 g/dL Low 3.5-5.0 [facility] Comment on above: Performed By: #### L [id number] ####[employer] Architect: MARY SOTELO ([id number])[facility] ([facility])[address] [place] [address] Anion gap [Moles/Vol] 2 mmol/L Low 3-13 [facility] Comment on above: Performed By: #### L [id number] ####[employer] Architect: MARY SOTELO ([id number])[facility] ([facility])[address] [place] [address] Calcium [Mass/Vol] 8.7 mg/dL Normal 8.4-10.4 [facility] Comment on above: Performed By: #### L [id number] ####[employer] Architect: MARY SOTELO ([id number])[facility] ([facility])[address] [place] [address] Chloride [Moles/Vol] 105 mmol/L Normal 98-107 [facility] Comment on above: Performed By: #### L [id number] ####Ob[employer]e [employer] Architect: MARY SOTELO ([id number])[facility] ([facility])[address] [place] [address] CO2 [Moles/Vol] 25 mmol/L Normal 22-30 [facility] Comment on above: Performed By: #### L [id number] ####Obiee [employer] Architect: MARY SOTELO ([id number])[facility] ([facility])[address] [place] [address] Creatinine [Mass/Vol] 0.89 mg/dL Normal 0.52-1.04 [facility] Comment on above: Performed By: #### L [id number] ####Obiee [employer] Architect: MARY SOTELO ([id number])[facility] ([facility])[address] [place] [address] [place] GLOMERULAR FILTRATION RATE ML/MIN/1.73 SQ M.PREDICTED 72.5 mL/min/1.73m*2 Normal >60.0 [facility] Comment on above: Result Comment: Calc ulation based on the Chronic Kidney Disease Epidemiology Collaboration (CKD-EPI) equation refit without adjustment for race Performed By: #### L [id number] ####Ob[employer]e [employer] Architect: MARY SOTELO ([id number])[facility] ([facility])[address] [place] [address] [place] Glucose [Mass/Vol] 104 mg/dL High 70-100 [facility] Comment on above: Performed By: #### L [id number] ####Ob[employer]e [employer] Architect: MARY SOTELO ([id number])[facility] ([facility])[address] [place] [address] [place] Phosphate [Mass/Vol] 3.2 mg/dL Normal 2.5-4.5 [facility] Comment on above: Performed By: #### L [id number] ####Obiee [employer] Architect: MARY SOTELO ([id number])[facility] ([facility])[address] [place] [address] Potassium [Moles/Vol] 3.7 mmol/L Normal 3.5-5.1 [facility] Comment on above: Performed By: #### L [id number] ####Obiee [employer] Architect: MARY SOTELO ([id number])[facility] ([facility])[address] [place] [address] [place] Sodium [Moles/Vol] 132 mmol/L Low 135-145 [facility] Comment on above: Performed By: #### L [id number] ####Ob[employer]e [employer] Architect: MARY SOTELO ([id number])[facility] ([facility])[address] [place] [address] [place] Urea nitrogen [Mass/Vol] 19 mg/dL High 7-17 [facility] Comment on above: Performed By: #### L [id number] ####Obiee [employer] Architect: MARY SOTELO ([id number])[facility] ([facility])[address] [place] [address] [place] Albumin [Mass/Vol] 2.1 g/dL Low 3.5-5.0 [facility] Comment on above: Performed By: #### L [id number] ####Ob[employer]e [employer] Architect: MARY SOTELO ([id number])[facility] ([facility])[address] [place] [address] [place] Anion gap [Moles/Vol] 3 mmol/L Normal 3-13 [facility] Comment on above: Performed By: #### L [id number] ####Obiee [employer] Architect: MARY SOTELO ([id number])[facility] ([facility])[address] [place] [address] Calcium [Mass/Vol] 8.7 mg/dL Normal 8.4-10.4 [facility] Comment on above: Performed By: #### L [id number] ####Obiee [employer] Architect: MARY SOTELO ([id number])[facility] ([facility])[address] [place] [address] [place] Chloride [Moles/Vol] 105 mmol/L Normal 98-107 [facility] Comment on above: Performed By: #### L [id number] ####Obiee [employer] Solution Architect: MARY SOTELO ([id number])[facility] ([facility])[address] [place] [address] CO2 [Moles/Vol] 24 mmol/L Normal 22-30 [facility] Comment on above: Performed By: #### L [id number] ####Obiee [employer] Solution Architect: MARY SOTELO ([id number])[facility] ([facility])[address] [place] [address] Creatinine [Mass/Vol] 0.91 mg/dL Normal 0.52-1.04 [facility] Comment on above: Performed By: #### L [id number] ####Obiee [employer] Solution Architect: MARY SOTELO ([id number])[facility] ([facility])[address] [place] [address] [place] GLOMERULAR FILTRATION RATE ML/MIN/1.73 SQ M.PREDICTED 70.6 mL/min/1.73m*2 Normal >60.0 [facility] Comment on above: Result Comment: Calc ulation based on the Chronic Kidney Disease Epidemiology Collaboration (CKD-EPI) equation refit without adjustment for race Performed By: #### L [id number] ####Ob[employer]e [employer] Architect: MARY SOTELO ([id number])[facility] ([facility])[address] [place] [address] [place] Glucose [Mass/Vol] 161 mg/dL High 70-100 [facility] Comment on above: Performed By: #### L [id number] ####Obiee [employer] Architect: MARY SOTELO ([id number])[facility] ([facility])[address] [place] [address] [place] Phosphate [Mass/Vol] 3.8 mg/dL Normal 2.5-4.5 [facility] Comment on above: Performed By: #### L [id number] ####Obiee [employer] Solution Architect: MARY SOTELO ([id number])[facility] ([facility])[address] [place] [address] [place] Potassium [Moles/Vol] 4.2 mmol/L Normal 3.5-5.1 [facility] Comment on above: Performed By: #### L [id number] ####Obiee [employer] Solution Architect: MARY SOTELO ([id number])[facility] ([facility])[address] Sodium [Moles/Vol] 131 mmol/L Low 135-145 [facility] Comment on above: Performed By: #### L [id number] ####Obiee [employer] Solution Architect: MARY SOTELO ([id number])[facility] ([facility])[address] [place] [address] [place] Urea nitrogen [Mass/Vol] 22 mg/dL High 7-17 [facility] Comment on above: Performed By: #### L [id number] ####Obiee [employer] Architect: MARY SOTELO ([id number])[facility] ([facility])[address] [place] [address] Albumin [Mass/Vol] 2.2 g/dL Low 3.5-5.0 [facility] Comment on above: Performed By: #### L [id number] ####Obiee [employer] Solution Architect: MARY SOTELO ([id number])[facility] ([facility])[address] [place] [address] [place] Anion gap [Moles/Vol] 3 mmol/L Normal 3-13 [facility] Comment on above: Performed By: #### L [id number] ####Obiee [employer] Architect: MARY SOTELO ([id number])[facility] ([facility])[address] [place] [address] [place] Calcium [Mass/Vol] 8.7 mg/dL Normal 8.4-10.4 [facility] Comment on above: Performed By: #### L [id number] ####Obiee [employer] Architect: MARY SOTELO ([id number])[facility] ([facility])[address] [place] [address] Chloride [Moles/Vol] 105 mmol/L Normal 98-107 [facility] Comment on above: Performed By: #### L [id number] ####Obiee [employer] Architect: MARY SOTELO ([id number])[facility] ([facility])[address] [place] [address] CO2 [Moles/Vol] 24 mmol/L Normal 22-30 [facility] Comment on above: Performed By: #### L [id number] ####Obiee [employer] Architect: MARY SOTELO ([id number])[facility] ([facility])[address] [place] [address] Creatinine [Mass/Vol] 0.98 mg/dL Normal 0.52-1.04 [facility] Comment on above: Performed By: #### L [id number] ####Obiee [employer] Architect: MARY SOTELO ([id number])[facility] ([facility])[address] [place] [address] [place] GLOMERULAR FILTRATION RATE ML/MIN/1.73 SQ M.PREDICTED 64.6 mL/min/1.73m*2 Normal >60.0 [facility] Comment on above: Result Comment: Calc ulation based on the Chronic Kidney Disease Epidemiology Collaboration (CKD-EPI) equation refit without adjustment for race Performed By: #### L [id number] ####Obiee [employer] Architect: MARY SOTELO ([id number])[facility] ([facility])[address] [place] [address] [place] Glucose [Mass/Vol] 229 mg/dL High 70-100 [facility] Comment on above: Performed By: #### L [id number] ####Obiee [employer] Architect: MARY SOTELO ([id number])[facility] ([facility])[address] [place] [address] [place] Phosphate [Mass/Vol] 4.0 mg/dL Normal 2.5-4.5 [facility] Comment on above: Performed By: #### L [id number] ####Obiee [employer] Architect: MARY SOTELO ([id number])[facility] ([facility])[address] [place] [address] Potassium [Moles/Vol] 4.5 mmol/L Normal 3.5-5.1 [facility] Comment on above: Performed By: #### L [id number] ####Obiee [employer] Solution Architect: MARY SOTELO ([id number])[facility] ([facility])[address] [place] [address] Sodium [Moles/Vol] 132 mmol/L Low 135-145 [facility] Comment on above: Performed By: #### L [id number] ####Obiee [employer] Architect: MARY SOTELO ([id number])[facility] ([facility])[address] [place] [address] Urea nitrogen [Mass/Vol] 24 mg/dL High 7-17 [facility] Comment on above: Performed By: #### L [id number] ####Obiee [employer] Solution Architect: MARY SOTELO ([id number])[facility] ([facility])[address] [place] [address] Renal function 2000 panelon 07-31-2024 Albumin [Mass/Vol] 1.9 g/dL Low 3.5 - 5.0 g/dL [facility] Anion gap [Moles/Vol] 1 mmol/L Low 3 - 13 mmol/L [facility] Calcium [Mass/Vol] 8.2 mg/dL Low 8.4 - 10. 4 mg/dL [facility] Chloride [Moles/Vol] 104 mmol/L 98 - 10 7 mmol/L [facility] CO2 [Moles/Vol] 25 mmol/L 22 - 30 mmol/L [facility] Creatinine [Mass/Vol] 0.81 mg/dL 0.52 - 1.04 mg/dL [facility] GFR/1.73 sq M.predicted (S/P/Bld) [Vol rate/Area] 81.2 mL/min - PINF [facility] Glucose [Mass/Vol] 173 mg/dL High 70 - 100 mg/dL [facility] Interpretation and review of laboratory results Abnormal [facility] Phosphate [Mass/Vol] 3.1 mg/dL 2.5 - 4 .5 mg/dL [facility] Potassium [Moles/Vol] 3.9 mmol/L 3.5 - 5.1 mmol/L [facility] Sodium [Moles/Vol] 130 mmol/L Low 135 - 145 mmol/L [facility] Urea nitrogen [Mass/Vol] 16 mg/dL 7 - 17 mg/dL [facility] Albumin [Mass/Vol] 1.9 g/dL Low 3.5 - 5.0 g/dL [facility] Anion gap [Moles/Vol] 2 mmol/L Low 3 - 13 mmol/L [facility] Calcium [Mass/Vol] 8.7 mg/dL 8.4 - 10. 4 mg/dL [facility] Chloride [Moles/Vol] 105 mmol/L 98 - 10 7 mmol/L [facility] CO2 [Moles/Vol] 25 mmol/L 22 - 30 mmol/L [facility] Creatinine [Mass/Vol] 0.89 mg/dL 0.52 - 1.04 mg/dL [facility] GFR/1.73 sq M.predicted (S/P/Bld) [Vol rate/Area] 72.5 mL/min - PINF [facility] Glucose [Mass/Vol] 104 mg/dL High 70 - 100 mg/dL [facility] Interpretation and review of laboratory results Abnormal [facility] Phosphate [Mass/Vol] 3.2 mg/dL 2.5 - 4 .5 mg/dL [facility] Potassium [Moles/Vol] 3.7 mmol/L 3.5 - 5.1 mmol/L [facility] Sodium [Moles/Vol] 132 mmol/L Low 135 - 145 mmol/L [facility] Urea nitrogen [Mass/Vol] 19 mg/dL High 7 - 17 mg/dL [facility] Albumin [Mass/Vol] 2.1 g/dL Low 3.5 - 5.0 g/dL [facility] Anion gap [Moles/Vol] 3 mmol/L 3 - 13 mmol/L [facility] Calcium [Mass/Vol] 8.7 mg/dL 8.4 - 10. 4 mg/dL [facility] Chloride [Moles/Vol] 105 mmol/L 98 - 10 7 mmol/L [facility] CO2 [Moles/Vol] 24 mmol/L 22 - 30 mmol/L [facility] Creatinine [Mass/Vol] 0.91 mg/dL 0.52 - 1.04 mg/dL [facility] GFR/1.73 sq M.predicted (S/P/Bld) [Vol rate/Area] 70.6 mL/min - PINF [facility] Glucose [Mass/Vol] 161 mg/dL High 70 - 100 mg/dL [facility] Interpretation and review of laboratory results Abnormal [facility] Phosphate [Mass/Vol] 3.8 mg/dL 2.5 - 4 .5 mg/dL [facility] Potassium [Moles/Vol] 4.2 mmol/L 3.5 - 5.1 mmol/L [facility] Sodium [Moles/Vol] 131 mmol/L Low 135 - 145 mmol/L [facility] Urea nitrogen [Mass/Vol] 22 mg/dL High 7 - 17 mg/dL [facility] Albumin [Mass/Vol] 2.2 g/dL Low 3.5 - 5.0 g/dL [facility] Anion gap [Moles/Vol] 3 mmol/L 3 - 13 mmol/L [facility] Calcium [Mass/Vol] 8.7 mg/dL 8.4 - 10. 4 mg/dL [facility] Chloride [Moles/Vol] 105 mmol/L 98 - 10 7 mmol/L [facility] CO2 [Moles/Vol] 24 mmol/L 22 - 30 mmol/L [facility] Creatinine [Mass/Vol] 0.98 mg/dL 0.52 - 1.04 mg/dL [facility] GFR/1.73 sq M.predicted (S/P/Bld) [Vol rate/Area] 64.6 mL/min - PINF [facility] Glucose [Mass/Vol] 229 mg/dL High 70 - 100 mg/dL [facility] Interpretation and review of laboratory results Abnormal [facility] Phosphate [Mass/Vol] 4.0 mg/dL 2.5 - 4 .5 mg/dL [facility] Potassium [Moles/Vol] 4.5 mmol/L 3.5 - 5.1 mmol/L [facility] Sodium [Moles/Vol] 132 mmol/L Low 135 - 145 mmol/L [facility] Urea nitrogen [Mass/Vol] 24 mg/dL High 7 - 17 mg/dL [facility] BLOOD GAS ARTERIALon 024 Base excess Calc (Bld) [Moles/Vol] 1.9 mmol/L Normal -3.0-3.0 [facility] Comment on above: Performed By: #### L [id number] ####Ob[employer] Architect: MARY SOTELO ([id number])[facility] ([facility])[address] [place] [address] CO2 [Moles/Vol] 28.3 mmol/L High 23.0-27.0 [facility] Comment on above: Performed By: #### L [id number] ####Obiee [employer] Architect: MARY SOTELO ([id number])[facility] ([facility])[address] [place] [address] HCO3 (Bld) [Moles/Vol] 26.9 mmol/L High 21.0-25.0 [facility] Comment on above: Performed By: #### L [id number] ####Obiee [employer] Solution Architect: MARY SOTELO ([id number])[facility] ([facility])[address] [place] [address] Hemoglobin (Bld) [Mass/Vol] 7.7 g/dL Normal Screen only [facility] Comment on above: Performed By: #### L [id number] ####Ob[employer] Architect: MARY SOTELO ([id number])[facility] ([facility])[address] [place] [address] OXYGEN SATURATION (%) IN ARTERIAL BLOOD 97.9 % Normal 95.0-100.0 [facility] Comment on above: Performed By: #### L [id number] ####Ob[employer]e [employer] Architect: MARY SOTELO ([id number])[facility])[address] [place] [address] PCO2 ARTERIAL 44.6 mm Hg Normal >35.0-<45.0 [facility] Comment on above: Performed By: #### L [id number] ####Ob[employer]e [employer] Architect: MARY SOTELO ([id number])[facility] ([facility])[address] [place] [address] PH ARTERIAL 7.399 Normal 7.350-7.450 [facility] Comment on above: Performed By: #### L [id number] ####Obiee [employer] Architect: MARY SOTELO ([id number])[facility] ([facility])[address] [place] [address] PO2 ARTERIAL 113.8 mm Hg High 80.0-100.0 [facility] Comment on above: Performed By: #### L [id number] ####Obiee [employer] Solution Architect: MARY SOTELO ([id number])[facility] ([facility])[address] [place] [address] SOURCE OF OXYGEN 30% Oxygen Normal [facility] Comment on above: Result Comment: lon llator Performed By: #### L [id number] ####Obiee [employer] Solution Architect: MARY SOTELO ([id number])[facility] ([facility])[address] [place] [address] Base excess Calc (Bld) [Moles/Vol] 0.7 mmol/L Normal -3.0-3.0 [facility] Comment on above: Performed By: #### L [id number] ####Ob[employer]e [employer] Architect: MARY SOTELO ([id number])[facility] ([facility])[address] [place] [address] CO2 [Moles/Vol] 27.6 mmol/L High 23.0-27.0 [facility] Comment on above: Performed By: #### L [id number] ####Ob[employer]e [employer] Architect: MARY SOTELO ([id number])[facility])[address] [place] [address] HCO3 (Bld) [Moles/Vol] 26.2 mmol/L High 21.0-25.0 [facility] Comment on above: Performed By: #### L [id number] ####Ob[employer]e [employer] Architect: MARY SOTELO ([id number])[facility])[address] [place] [address] Hemoglobin (Bld) [Mass/Vol] 7.9 g/dL Normal Screen only [facility] Comment on above: Performed By: #### L [id number] ####Ob[employer]e [employer] Architect: MARY SOTELO ([id number])[facility])[address] [place] [address] OXYGEN SATURATION (%) IN ARTERIAL BLOOD 97.2 % Normal 95.0-100.0 [facility] Comment on above: Performed By: #### L [id number] ####Obiee [employer] Solution Architect: MARY SOTELO ([id number])[facility])[address] [place] [address] PCO2 ARTERIAL 46.3 mm Hg High >35.0-<45.0 [facility] Comment on above: Performed By: #### L [id number] ####Obiee [employer] Architect: MARY SOTELO ([id number])[facility])[address] [place] [address] PH ARTERIAL 7.370 Normal 7.350-7.450 [facility] Comment on above: Performed By: #### L [id number] ####Obiee [employer] Architect: MARY SOTELO ([id number])[facility])[address] [place] [address] PO2 ARTERIAL 114.1 mm Hg High 80.0-100.0 [facility] Comment on above: Performed By: #### L [id number] ####Ob[employer]e [employer] Architect: MARY SOTELO ([id number])[facility])[address] [place] [address] SOURCE OF OXYGEN Vent Normal [facility] Comment on above: Performed By: #### L [id number] ####Ob[employer]e [employer] Architect: MARY SOTELO ([id number])[facility] ([facility])[address] [place] [address] CALCIUM, IONIZEDon 4 CALCIUM IONIZED 4.90 mg/dL Normal 4.30-5.20 [facility] Comment on above: Performed By: #### L [id number] ####Ob[employer]e [employer] Architect: MARY SOTELO ([id number])[facility])[address] [place] [address] PH, IONIZED CALCIUM 7.34 Normal 7.31-7.46 [facility] Comment on above: Performed By: #### L [id number] ####Ob[employer]e [employer] Architect: MARY SOTELO ([id number])[facility])[address] [place] [address] [place] CALCIUM IONIZED 4.20 mg/dL Low 4.30-5.20 [facility] Comment on above: Performed By: #### L [id number] ####Ob[employer]e [employer] Architect: MARY SOTELO ([id number])[facility])[address] [place] [address] PH, IONIZED CALCIUM 7.43 Normal 7.31-7.46 [facility] Comment on above: Performed By: #### L [id number] ####Ob[employer]e [employer] Architect: MARY SOTELO ([id number])[facility])[address] [place] [address] CALCIUM IONIZED 4.10 mg/dL Low 4.30-5.20 [facility] Comment on above: Performed By: #### L [id number] ####Ob[employer]e [employer] Architect: MARY SOTELO ([id number])[facility])[address] [place] [address] PH, IONIZED CALCIUM 7.42 Normal 7.31-7.46 [facility] Comment on above: Performed By: #### L [id number] ####Ob[employer]e [employer] Architect: MARY SOTELO ([id number])[facility])[address] [place] [address] CALCIUM IONIZED 4.30 mg/dL Normal 4.30-5.20 [facility] Comment on above: Performed By: #### L [id number] ####Ob[employer] Architect: MARY SOTELO ([id number])[facility])[address] [place] [address] PH, IONIZED CALCIUM 7.37 Normal 7.31-7.46 [facility] Comment on above: Performed By: #### L [id number] ####Ob[employer] Architect: MARY SOTELO ([id number])[facility])[address] [place] [address] [place] CARECOORDon 07-30-2024 CARECOORD Normal [facility] CBC WITH AUTO DIFFERENTIALon 07-30-2024 Basophils (Bld) [#/Vol] 0.0 10*3/uL Normal 0.0-0.2 [facility] Comment on above: Performed By: #### L [id number] ####[employer] Architect: MARY SOTELO ([id number])[facility])[address] [place] [address] Basophils/100 WBC (Bld) 0.0 % Normal 0.0-2.0 [facility] Comment on above: Performed By: #### L [id number] ####[employer] Architect: MARY SOTELO ([id number])[facility])[address] [place] [address] Eosinophils (Bld) [#/Vol] 0.0 10*3/uL Normal 0.0-0.5 [facility] Comment on above: Performed By: #### L [id number] ####[employer] Architect: MARY SOTELO ([id number])[facility])[address] [place] [address] Eosinophils/100 WBC (Bld) 0.0 % Normal 0.0-6.0 [facility] Comment on above: Performed By: #### L [id number] ####[employer] Architect: MARY SOTELO ([id number])[facility])[address] [place] [address] Erythrocyte distribution width (RBC) [Ratio] 15.5 % High 11.5-15.0 [facility] Comment on above: Performed By: #### L [id number] ####[employer] Architect: MARY SOTELO ([id number])[facility])[address] [place] [address] Hematocrit (Bld) [Volume fraction] 23.0 % Low 35.0-47.0 [facility] Comment on above: Performed By: #### L [id number] ####[employer] Architect: MARY SOTELO ([id number])[facility])[address] [place] [address] Hemoglobin (Bld) [Mass/Vol] 7.3 g/dL Low 11.7-16.0 [facility] Comment on above: Performed By: #### L [id number] ####[employer] Architect: MARY SOTELO ([id number])[facility])[address] [place] [address] IMMATURE GRANS % 0.4 % Normal 0.0-2.0 [facility] Comment on above: Performed By: #### L [id number] ####[employer] Architect: MARY SOTELO ([id number])[facility])[address] [place] [address] IMMATURE GRANS ABSOLUTE 0.1 10*3/uL High <0.1 [facility] Comment on above: Performed By: #### L [id number] ####[employer] Architect: MARY SOTELO ([id number])[facility])[address] [place] [address] Lymphocytes (Bld) [#/Vol] 0.6 10*3/uL Low 1.0-4.3 [facility] Comment on above: Performed By: #### L [id number] ####[employer] Architect: MARY SOTELO ([id number])[facility])[address] [place] [address] Lymphocytes/100 WBC (Bld) 4.3 % Low 15.0-45.0 [facility] Comment on above: Performed By: #### L [id number] ####[employer] Architect: MARY SOTELO ([id number])[facility])[address] [place] [address] MCH (RBC) [Entitic mass] 28.6 pg Normal 26.0-34.0 [facility] Comment on above: Performed By: #### L [id number] ####[employer] Architect: MARY SOTELO ([id number])[facility])[address] [place] [address] MCHC 31.7 % Normal 30.5-36.0 [facility] Comment on above: Performed By: #### L [id number] ####[employer] Architect: MARY SOTELO ([id number])[facility])[address] [place] [address] MCV (RBC) [Entitic vol] 90.2 fL Normal 77.0-99.0 [facility] Comment on above: Performed By: #### L [id number] ####[employer] Architect: MARY SOTELO ([id number])[facility])[address] [place] [address] Monocytes (Bld) [#/Vol] 0.6 10*3/uL Normal 0.0-0.9 [facility] Comment on above: Performed By: #### L [id number] ####[employer] Architect: MARY SOTELO ([id number])[facility])[address] [place] [address] Monocytes/100 WBC (Bld) 4.4 % Low 5.0-13.0 [facility] Comment on above: Performed By: #### L [id number] ####Obiee [employer] Solution Architect: MARY SOTELO ([id number])[facility])[address] [place] [address] NEUTROPHILS ABSOLUTE 12.3 10*3/uL High 1.8-7.5 [facility] Comment on above: Performed By: #### L [id number] ####Obiee [employer] Architect: MARY SOTELO ([id number])[facility])[address] [place] [address] Neutrophils/100 WBC (Bld) 90.9 % High 38.0-82.0 [facility] Comment on above: Performed By: #### L [id number] ####Obiee [employer] Solution Architect: MARY SOTELO ([id number])[facility])[address] [place] [address] NRBC 0.0 /100 WBCs Normal 0.0-2.0 [facility] Comment on above: Performed By: #### L [id number] ####Obiee [employer] Architect: MARY SOTELO ([id number])[facility])[address] [place] [address] Platelet mean volume (Bld) [Entitic vol] 10.5 fL Normal 9.0-12.7 [facility] Comment on above: Performed By: #### L [id number] ####Obiee [employer] Solution Architect: MARY SOTELO ([id number])[facility])[address] [place] [address] Platelets (Bld) [#/Vol] 161 10*3/uL Normal 140-440 [facility] Comment on above: Performed By: #### L [id number] ####Obiee [employer] Solution Architect: MARY SOTELO ([id number])[facility])[address] [place] [address] RBC (Bld) [#/Vol] 2.55 10*6/uL Low 3.80-5.20 [facility] Comment on above: Performed By: #### L [id number] ####Ob[employer]e [employer] Architect: MARY SOTELO ([id number])[facility])[address] [place] [address] WBC (Bld) [#/Vol] 13.6 10*3/uL High 3.6-10.7 [facility] Comment on above: Performed By: #### L [id number] ####Obiee [employer] Architect: MARY SOTELO ([id number])[facility])[address] [place] [address] IDNon 07-30-2024 IDN Normal [facility] Laboratory - Chemistry and C hemistry - challengeon 07-30-2024 Glucose [Mass/Vol] 165 mg/dL High 70 - 100 mg/dL [facility] No Panel Informationon 07-30 Interpretation and review of laboratory results Abnormal [facility] Nursing Noteon 07-30-2024 Nursing Note Patient pulled out O G tube. Also pulled out ET tube a couple centimeters. . Respiratory therapist advanced ET tube. OG tube place to 55cm. Will get Xray. Restarted Fentanyl. Precedex maxed. Normal [facility] Nursing Note Patient got ahold of suction tubing on ET tube. Pulled her ET tube out a couple centimeters. Respiratory therapist notified. Normal [facility] Progress Noteon 07-30-2024 Progress Note Normal [facility] Progress Note Normal [facility] Progress Note Normal [facility] Progress Note Normal [facility] Progress Note PHYSICAL THERAPY [facility] Name/MRN: Sandy Deng ([id number]) Date: 07/30/2024 Screen Note. Pt remains intubated and sedated with orders for strict bed rest. Will continue to follow and re-attempt as able. Jennifer Saldaña, SPT Normal [facility] Progress Note Normal [facility] RENAL FUNCTION PANELon 07-30 Albumin [Mass/Vol] 2.0 g/dL Low 3.5-5.0 [facility] Comment on above: Performed By: #### L [id number] ####Obiee [employer] Architect: MARY SOTELO ([id number])[facility])[address] [place] [address] Anion gap [Moles/Vol] 0 mmol/L Low 3-13 [facility] Comment on above: Performed By: #### L [id number] ####Obiee [employer] Architect: MARY SOTELO ([id number])[facility])[address] [place] [address] Calcium [Mass/Vol] 8.7 mg/dL Normal 8.4-10.4 [facility] Comment on above: Performed By: #### L [id number] ####Obiee [employer] Architect: MARY SOTELO ([id number])[facility])[address] [place] [address] [place] Chloride [Moles/Vol] 104 mmol/L Normal 98-107 [facility] Comment on above: Performed By: #### L [id number] ####Obiee [employer] Solution Architect: MARY SOTELO ([id number])[facility])[address] [place] [address] CO2 [Moles/Vol] 28 mmol/L Normal 22-30 [facility] Comment on above: Performed By: #### L [id number] ####Obiee [employer] Solution Architect: MARY SOTELO ([id number])[facility])[address] [place] [address] Creatinine [Mass/Vol] 0.98 mg/dL Normal 0.52-1.04 [facility] Comment on above: Performed By: #### L [id number] ####Obiee [employer] Solution Architect: MARY SOTELO ([id number])[facility])[address] [place] [address] GLOMERULAR FILTRATION RATE ML/MIN/1.73 SQ M.PREDICTED 64.6 mL/min/1.73m*2 Normal >60.0 [facility] Comment on above: Result Comment: Calc ulation based on the Chronic Kidney Disease Epidemiology Collaboration (CKD-EPI) equation refit without adjustment for race Performed By: #### L [id number] ####Obiee [employer] Architect: MARY SOTELO ([id number])[facility])[address] [place] [address] Glucose [Mass/Vol] 114 mg/dL High 70-100 [facility] Comment on above: Performed By: #### L [id number] ####Obiee [employer] Architect: MARY SOTELO ([id number])[facility])[address] [place] [address] Phosphate [Mass/Vol] 3.7 mg/dL Normal 2.5-4.5 [facility] Comment on above: Performed By: #### L [id number] ####Obiee [employer] Architect: MARY SOTELO ([id number])[facility])[address] [place] [address] [place] Potassium [Moles/Vol] 4.5 mmol/L Normal 3.5-5.1 [facility] Comment on above: Performed By: #### L [id number] ####Obiee [employer] Architect: MARY SOTELO ([id number])[facility])[address] [place] [address] [place] Sodium [Moles/Vol] 132 mmol/L Low 135-145 [facility] Comment on above: Performed By: #### L [id number] ####Obiee [employer] Architect: MARY SOTELO ([id number])[facility])[address] [place] [address] [place] Urea nitrogen [Mass/Vol] 24 mg/dL High 7-17 [facility] Comment on above: Performed By: #### L [id number] ####Obiee [employer] Architect: MARY SOTELO ([id number])[facility])[address] [place] [address] Albumin [Mass/Vol] 2.0 g/dL Low 3.5-5.0 [facility] Comment on above: Performed By: #### L [id number] ####Obiee [employer] Architect: MARY SOTELO ([id number])[facility])[address] [place] [address] Anion gap [Moles/Vol] 1 mmol/L Low 3-13 [facility] Comment on above: Performed By: #### L [id number] ####Obiee [employer] Architect: MARY SOTELO ([id number])[facility])[address] [place] [address] Calcium [Mass/Vol] 7.7 mg/dL Low 8.4-10.4 [facility] Comment on above: Performed By: #### L [id number] ####Obiee [employer] Architect: MARY SOTELO ([id number])[facility])[address] [place] [address] Chloride [Moles/Vol] 104 mmol/L Normal 98-107 [facility] Comment on above: Performed By: #### L [id number] ####Obiee Ob[employer] Solution Architect: MARY SOTELO ([id number])[facility])[address] [place] [address] [place] CO2 [Moles/Vol] 28 mmol/L Normal 22-30 [facility] Comment on above: Performed By: #### L [id number] ####Obiee [employer] Solution Architect: MARY SOTELO ([id number])[facility])[address] [place] [address] Creatinine [Mass/Vol] 1.19 mg/dL High 0.52-1.04 [facility] Comment on above: Performed By: #### L [id number] ####Obiee Ob[employer] Solution Architect: MARY SOTELO ([id number])[facility] [place] [address] [place] GLOMERULAR FILTRATION RATE ML/MIN/1.73 SQ M.PREDICTED 51.2 mL/min/1.73m*2 Low >60.0 [facility] Comment on above: Result Comment: Calc ulation based on the Chronic Kidney Disease Epidemiology Collaboration (CKD-EPI) equation refit without adjustment for race Performed By: #### L [id number] ####Obiee [employer] Solution Architect: MARY SOTELO ([id number])[facility])[address] [place] [address] Glucose [Mass/Vol] 89 mg/dL Normal 70-100 [facility] Comment on above: Performed By: #### L [id number] ####Obiee [employer] Solution Architect: MARY SOTELO ([id number])[facility] [place] [address] Phosphate [Mass/Vol] 3.6 mg/dL Normal 2.5-4.5 [facility] Comment on above: Performed By: #### L [id number] ####Obiee [employer] Solution Architect: MARY SOTELO ([id number])[facility])[address] [place] [address] [place] Potassium [Moles/Vol] 5.0 mmol/L Normal 3.5-5.1 [facility] Comment on above: Performed By: #### L [id number] ####Obiee [employer] Solution Architect: MARY SOTELO ([id number])[facility])[address] [place] [address] [place] Sodium [Moles/Vol] 133 mmol/L Low 135-145 [facility] Comment on above: Performed By: #### L [id number] ####Obiee [employer] Solution Architect: MARY SOTELO ([id number])[facility])[address] [place] [address] [place] Urea nitrogen [Mass/Vol] 28 mg/dL High 7-17 [facility] Comment on above: Performed By: #### L [id number] ####Obiee [employer] Solution Architect: MARY SOTELO ([id number])[facility])[address] [place] [address] Albumin [Mass/Vol] 2.1 g/dL Low 3.5-5.0 [facility] Comment on above: Performed By: #### L [id number] ####Obiee [employer] Solution Architect: MARY SOTELO ([id number])[facility])[address] [place] [address] Anion gap [Moles/Vol] 1 mmol/L Low 3-13 [facility] Comment on above: Performed By: #### L [id number] ####Obiee [employer] Solution Architect: MARY SOTELO ([id number])[facility])[address] [place] [address] Calcium [Mass/Vol] 7.3 mg/dL Low 8.4-10.4 [facility] Comment on above: Performed By: #### L [id number] ####Obiee [employer] Solution Architect: MARY SOTELO ([id number])[facility])[address] [place] [address] Chloride [Moles/Vol] 105 mmol/L Normal 98-107 [facility] Comment on above: Performed By: #### L [id number] ####Obiee [employer] Solution Architect: MARY SOTELO ([id number])[facility])[address] [place] [address] CO2 [Moles/Vol] 26 mmol/L Normal 22-30 [facility] Comment on above: Performed By: #### L [id number] ####Obiee [employer] Solution Architect: MARY SOTELO ([id number])[facility])[address] [place] [address] Creatinine [Mass/Vol] 1.37 mg/dL High 0.52-1.04 [facility] Comment on above: Performed By: #### L [id number] ####Obiee [employer] Solution Architect: MARY SOTELO ([id number])[facility])[address] [place] [address] GLOMERULAR FILTRATION RATE ML/MIN/1.73 SQ M.PREDICTED 43.2 mL/min/1.73m*2 Low >60.0 [facility] Comment on above: Result Comment: Calc ulation based on the Chronic Kidney Disease Epidemiology Collaboration (CKD-EPI) equation refit without adjustment for race Performed By: #### L [id number] ####Ob[employer]e [employer] Architect: MARY SOTELO ([id number])[facility])[address] [place] [address] Glucose [Mass/Vol] 149 mg/dL High 70-100 [facility] Comment on above: Performed By: #### L [id number] ####Ob[employer]e [employer] Architect: MARY SOTELO ([id number])[facility])[address] [place] [address] Phosphate [Mass/Vol] 4.1 mg/dL Normal 2.5-4.5 [facility] Comment on above: Performed By: #### L [id number] ####Ob[employer]e [employer] Solution Architect: MARY SOTELO ([id number])[facility])[address] [place] [address] Potassium [Moles/Vol] 5.4 mmol/L High 3.5-5.1 [facility] Comment on above: Performed By: #### L [id number] ####Obiee [employer] Solution Architect: MARY SOTELO ([id number])[facility])[address] [place] [address] Sodium [Moles/Vol] 132 mmol/L Low 135-145 [facility] Comment on above: Performed By: #### L [id number] ####Ob[employer]e [employer] Architect: MARY SOTELO ([id number])[facility])[address] [place] [address] [place] Urea nitrogen [Mass/Vol] 31 mg/dL High 7-17 [facility] Comment on above: Performed By: #### L [id number] ####Ob[employer]e [employer] Architect: MARY SOTELO ([id number])[facility])[address] [place] [address] Albumin [Mass/Vol] 2.0 g/dL Low 3.5-5.0 [facility] Comment on above: Performed By: #### L [id number] ####Obiee [employer] Solution Architect: MARY [id number])[facility] ([facility])[address] [place] [address] Anion gap [Moles/Vol] 1 mmol/L Low 3-13 [facility] Comment on above: Performed By: #### L [id number] ####Obiee [employer] Solution Architect: MARY SOTELO ([id number])[facility])[address] [place] [address] Calcium [Mass/Vol] 7.6 mg/dL Low 8.4-10.4 [facility] Comment on above: Performed By: #### L [id number] ####Ob[employer]e [employer] Architect: MARY SOTELO ([id number])[facility])[address] [place] [address] Chloride [Moles/Vol] 106 mmol/L Normal 98-107 [facility] Comment on above: Performed By: #### L [id number] ####Obiee [employer] Solution Architect: MARY SOTELO ([id number])[facility])[address] [place] [address] CO2 [Moles/Vol] 24 mmol/L Normal 22-30 [facility] Comment on above: Performed By: #### L [id number] ####Obiee [employer] Solution Architect: MARY SOTELO ([id number])[facility] ([facility])[address] [place] [address] Creatinine [Mass/Vol] 1.54 mg/dL High 0.52-1.04 [facility] Comment on above: Performed By: #### L [id number] ####Obiee [employer] Solution Architect: MARY SOTELO ([id number])[facility] ([facility])[address] [place] [address] [place] GLOMERULAR FILTRATION RATE ML/MIN/1.73 SQ M.PREDICTED 37.5 mL/min/1.73m*2 Low >60.0 [facility] Comment on above: Result Comment: Calc ulation based on the Chronic Kidney Disease Epidemiology Collaboration (CKD-EPI) equation refit without adjustment for race Performed By: #### L [id number] ####[employer]e [employer] Architect: MARY SOTELO ([id number])[facility])[address] [place] [address] Glucose [Mass/Vol] 147 mg/dL High 70-100 [facility] Comment on above: Performed By: #### L [id number] ####Ob[employer]e [employer] Solution Architect: MARY SOTELO ([id number])[facility])[address] [place] [address] Phosphate [Mass/Vol] 4.2 mg/dL Normal 2.5-4.5 [facility] Comment on above: Performed By: #### L [id number] ####Ob[employer]e [employer] Solution Architect: MARY SOTELO ([id number])[facility])[address] [place] [address] Potassium [Moles/Vol] 5.3 mmol/L High 3.5-5.1 [facility] Comment on above: Performed By: #### L [id number] ####Obiee [employer] Solution Architect: MARY SOTELO ([id number])[facility])[address] [place] [address] Sodium [Moles/Vol] 132 mmol/L Low 135-145 [facility] Comment on above: Performed By: #### L [id number] ####Ob[employer]e [employer] Architect: MARY SOTELO ([id number])[facility])[address] [place] [address] Urea nitrogen [Mass/Vol] 32 mg/dL High 7-17 [facility] Comment on above: Performed By: #### L [id number] ####Ob[employer] Architect: MARY SOTELO ([id number])[facility])[address] [place] [address] Renal function 2000 panelon 07-30-2024 Albumin [Mass/Vol] 2.0 g/dL Low 3.5 - 5.0 g/dL [facility] Anion gap [Moles/Vol] 0 mmol/L Low 3 - 13 mmol/L [facility] Calcium [Mass/Vol] 8.7 mg/dL 8.4 - 10. 4 mg/dL [facility] XR CHEST 1 VIEWon 07-30-2024 XR CHEST 1 VIEW Normal [facility] BLOOD GAS ARTERIALon 09-26-2 024 Base excess Calc (Bld) [Moles/Vol] 0.9 mmol/L Normal -3.0-3.0 [facility] Comment on above: Performed By: #### L [id number] ####Ob[employer] Architect: MARY SOTELO ([id number])[facility])[address] [place] [address] CO2 [Moles/Vol] 26.3 mmol/L Normal 23.0-27.0 [facility] Comment on above: Performed By: #### L [id number] ####Ob[employer]e [employer] Architect: MARY SOTELO ([id number])[facility])[address] [place] [address] HCO3 (Bld) [Moles/Vol] 25.1 mmol/L High 21.0-25.0 [facility] Comment on above: Performed By: #### L [id number] ####Obiee [employer] Solution Architect: MARY SOTELO ([id number])[facility])[address] [place] [address] Hemoglobin (Bld) [Mass/Vol] 8.3 g/dL Normal Screen only [facility] Comment on above: Performed By: #### L [id number] ####[employer] Architect: MARY SOTELO ([id number])[facility])[address] [place] [address] OXYGEN SATURATION (%) IN ARTERIAL BLOOD 97.1 % Normal 95.0-100.0 [facility] Comment on above: Performed By: #### L [id number] ####Ob[employer]e [employer] Architect: MARY SOTELO ([id number])[facility])[address] [place] [address] PCO2 ARTERIAL 37.9 mm Hg Normal >35.0-<45.0 [facility] Comment on above: Performed By: #### L [id number] ####Ob[employer]e [employer] Architect: MARY SOTELO ([id number])[facility])[address] [place] [address] PH ARTERIAL 7.439 Normal 7.350-7.450 [facility] Comment on above: Performed By: #### L [id number] ####Ob[employer] Architect: MARY SOTELO ([id number])[facility])[address] [place] [address] PO2 ARTERIAL 96.3 mm Hg Normal 80.0-100.0 [facility] Comment on above: Performed By: #### L [id number] ####[employer] Architect: MARY SOTELO ([id number])[facility])[address] [place] [address] SOURCE OF OXYGEN 30% Oxygen Normal [facility] Comment on above: Result Comment: vent ilator Performed By: #### L [id number] ####[employer] Architect: MARY SOTELO ([id number])[facility])[address] [place] [address] Base excess Calc (Bld) [Moles/Vol] 3.5 mmol/L High -3.0-3.0 [facility] Comment on above: Performed By: #### L [id number] ####[employer] Architect: MARY SOTELO ([id number])[facility])[address] [place] [address] CO2 [Moles/Vol] 27.7 mmol/L High 23.0-27.0 [facility] Comment on above: Performed By: #### L [id number] ####[employer] Architect: MARY SOTELO ([id number])[facility])[address] [place] [address] HCO3 (Bld) [Moles/Vol] 26.7 mmol/L High 21.0-25.0 [facility] Comment on above: Performed By: #### L [id number] ####[employer] Architect: MARY SOTELO ([id number])[facility])[address] [place] [address] Hemoglobin (Bld) [Mass/Vol] 8.0 g/dL Normal Screen only [facility] Comment on above: Performed By: #### L [id number] ####[employer] Architect: MARY SOTELO ([id number])[facility] ([facility])[address] [place] [address] OXYGEN SATURATION (%) IN ARTERIAL BLOOD 96.2 % Normal 95.0-100.0 [facility] Comment on above: Performed By: #### L [id number] ####[employer] Architect: MARY SOTELO ([id number])[facility])[address] [place] [address] PCO2 ARTERIAL 34.5 mm Hg Low >35.0-<45.0 [facility] Comment on above: Performed By: #### L [id number] ####[employer] Architect: MARY SOTELO ([id number])[facility])[address] [place] [address] PH ARTERIAL 7.506 High 7.350-7.450 [facility] Comment on above: Performed By: #### L [id number] ####[employer] Architect: MARY SOTELO ([id number])[facility])[address] [place] [address] PO2 ARTERIAL 88.9 mm Hg Normal 80.0-100.0 [facility] Comment on above: Performed By: #### L [id number] ####[employer] Architect: MARY SOTELO ([id number])[facility])[address] [place] [address] SOURCE OF OXYGEN 30% Oxygen Normal [facility] Comment on above: Result Comment: vent ilator Performed By: #### L [id number] ####[employer] Architect: MARY SOTELO ([id number])[facility])[address] [place] [address] Base excess Calc (Bld) [Moles/Vol] 1.9 mmol/L Normal -3.0-3.0 [facility] Comment on above: Performed By: #### L [id number] ####[employer] Architect: MARY SOTELO ([id number])[facility])[address] [place] [address] CO2 [Moles/Vol] 26.0 mmol/L Normal 23.0-27.0 [facility] Comment on above: Performed By: #### L [id number] ####[employer] Architect: MARY SOTELO ([id number])[facility])[address] [place] [address] HCO3 (Bld) [Moles/Vol] 25.0 mmol/L Normal 21.0-25.0 [facility] Comment on above: Performed By: #### L [id number] ####[employer] Architect: MARY SOTELO ([id number])[facility] ([facility])[address] [place] [address] Hemoglobin (Bld) [Mass/Vol] 8.2 g/dL Normal Screen only [facility] Comment on above: Performed By: #### L [id number] ####[employer] Architect: MARY SOTELO ([id number])[facility])[address] [place] [address] OXYGEN SATURATION (%) IN ARTERIAL BLOOD 97.9 % Normal 95.0-100.0 [facility] Comment on above: Performed By: #### L [id number] ####[employer] Architect: MARY SOTELO ([id number])[facility])[address] [place] [address] PCO2 ARTERIAL 32.6 mm Hg Low >35.0-<45.0 [facility] Comment on above: Performed By: #### L [id number] ####[employer] Architect: MARY SOTELO ([id number])[facility])[address] [place] [address] PH ARTERIAL 7.502 High 7.350-7.450 [facility] Comment on above: Performed By: #### L [id number] ####[employer] Architect: MARY SOTELO ([id number])[facility] ([facility])[address] [place] [address] PO2 ARTERIAL 110.0 mm Hg High 80.0-100.0 [facility] Comment on above: Performed By: #### L [id number] ####Obiee [employer] Solution Architect: MARY SOTELO ([id number])[facility] ([facility])[address] [place] [address] SOURCE OF OXYGEN Vent Normal [facility] Comment on above: Performed By: #### L AB76 ####Obiee Obia Solution Architect: MARY SOTELO ([id number])[facility])[address] [place] [address] [place] CALCIUM, IONIZEDon 4 CALCIUM IONIZED 4.70 mg/dL Normal 4.30-5.20 [facility] Comment on above: Performed By: #### L AB54 ####Obiee Obia Solution Architect: MARY SOTELO ([id number])[facility])[address] [place] [address] PH, IONIZED CALCIUM 7.41 Normal 7.31-7.46 [facility] Comment on above: Performed By: #### L AB54 ####Obiee Obia Solution Architect: MARY SOTELO ([id number])[address] CALCIUM IONIZED 4.30 mg/dL Normal 4.30-5.20 [facility] Comment on above: Performed By: #### L AB54 ####Obiee Obia Solution Architect: MARY SOTELO ([id number])[facility])[address] [place] [address] PH, IONIZED CALCIUM 7.44 Normal 7.31-7.46 [facility] Comment on above: Performed By: #### L AB54 ####Obiee Obia Solution Architect: MARY SOTELO ([id number])[facility])[address] [place] [address] [place] CALCIUM IONIZED 4.10 mg/dL Low 4.30-5.20 [facility] Comment on above: Performed By: #### L AB54 ####Obiee Obia Solution Architect: MARY SOTELO ([id number])[address] PH, IONIZED CALCIUM 7.51 High 7.31-7.46 [facility] Comment on above: Performed By: #### L AB54 ####Obiee Obia Solution Architect: MARY SOTELO ([id number])[facility])[address] [place] [address] CBC WITH AUTO DIFFERENTIALon 07-29-2024 Basophils (Bld) [#/Vol] 0.0 10*3/uL Normal 0.0-0.2 [facility] Comment on above: Performed By: #### L [id number] ####Obiee Obia Solution Architect: MARY SOTELO ([id number])[facility])[address] [place] [address] Basophils/100 WBC (Bld) 0.0 % Normal 0.0-2.0 [facility] Comment on above: Performed By: #### L [id number] ####Obiee Obia Solution Architect: MARY SOTELO ([id number])[facility])[address] [place] [address] Eosinophils (Bld) [#/Vol] 0.0 10*3/uL Normal 0.0-0.5 [facility] Comment on above: Performed By: #### L [id number] ####Obiee Obia Solution Architect: MARY SOTELO ([id number])[facility])[address] [place] [address] Eosinophils/100 WBC (Bld) 0.0 % Normal 0.0-6.0 [facility] Comment on above: Performed By: #### L [id number] ####Obiee Obia Solution Architect: MARY SOTELO ([id number])[facility])[address] [place] [address] Erythrocyte distribution width (RBC) [Ratio] 15.2 % High 11.5-15.0 [facility] Comment on above: Performed By: #### L [id number] ####Obiee Obia Solution Architect: MARY SOTELO ([id number])[facility])[address] [place] [address] Hematocrit (Bld) [Volume fraction] 23.1 % Low 35.0-47.0 [facility] Comment on above: Performed By: #### L [id number] ####Obiee Obia Solution Architect: MARY SOTELO ([id number])[facility])[address] [place] [address] Hemoglobin (Bld) [Mass/Vol] 7.7 g/dL Low 11.7-16.0 [facility] Comment on above: Performed By: #### L [id number] ####Obiee Obia Solution Architect: MARY SOTELO ([id number])[facility])[address] [place] [address] IMMATURE GRANS % 0.5 % Normal 0.0-2.0 [facility] Comment on above: Performed By: #### L [id number] ####Obiee Obia Solution Architect: MARY SOTELO ([id number])[address] IMMATURE GRANS ABSOLUTE 0.0 10*3/uL Normal <0.1 [facility] Comment on above: Performed By: #### L [id number] ####Obiee Obia Solution Architect: MARY SOTELO ([id number])[facility])[address] [place] [address] Lymphocytes (Bld) [#/Vol] 0.5 10*3/uL Low 1.0-4.3 [facility] Comment on above: Performed By: #### L [id number] ####Obiee Obia Solution Architect: MARY SOTELO ([id number])[address] Lymphocytes/100 WBC (Bld) 6.9 % Low 15.0-45.0 [facility] Comment on above: Performed By: #### L [id number] ####Obiee Obia Solution Architect: MARY SOTELO ([id number])[facility])[address] [place] [address] MCH (RBC) [Entitic mass] 28.6 pg Normal 26.0-34.0 [facility] Comment on above: Performed By: #### L [id number] ####Obiee Obia Solution Architect: MARY SOTELO ([id number])[facility])[address] [place] [address] MCHC 33.3 % Normal 30.5-36.0 [facility] Comment on above: Performed By: #### L [id number] ####Obiee Obia Solution Architect: MARY SOTELO ([id number])[facility])[address] [place] [address] MCV (RBC) [Entitic vol] 85.9 fL Normal 77.0-99.0 [facility] Comment on above: Performed By: #### L [id number] ####Obiee Obia Solution Architect: MARY SOTELO ([id number])[facility])[address] [place] [address] Monocytes (Bld) [#/Vol] 0.4 10*3/uL Normal 0.0-0.9 [facility] Comment on above: Performed By: #### L [id number] ####Obiee Obia Solution Architect: MARY SOTELO ([id number])[facility])[address] [place] [address] Monocytes/100 WBC (Bld) 6.5 % Normal 5.0-13.0 [facility] Comment on above: Performed By: #### L [id number] ####Obiee Obia Solution Architect: MARY SOTELO ([id number])[facility])[address] [place] [address] NEUTROPHILS ABSOLUTE 5.6 10*3/uL Normal 1.8-7.5 [facility] Comment on above: Performed By: #### L [id number] ####Obiee Obia Solution Architect: MARY SOTELO ([id number])[facility])[address] [place] [address] Neutrophils/100 WBC (Bld) 86.1 % High 38.0-82.0 [facility] Comment on above: Performed By: #### L [id number] ####Obiee Obia Solution Architect: MARY SOTELO ([id number])[facility])[address] [place] [address] NRBC 0.0 /100 WBCs Normal 0.0-2.0 [facility] Comment on above: Performed By: #### L [id number] ####Obiee Obia Solution Architect: MARY SOTELO ([id number])[facility])[address] [place] [address] Platelet mean volume (Bld) [Entitic vol] 11.0 fL Normal 9.0-12.7 [facility] Comment on above: Performed By: #### L [id number] ####Obiee Obia Solution Architect: MARY SOTELO ([id number])[facility])[address] [place] [address] Platelets (Bld) [#/Vol] 141 10*3/uL Normal 140-440 [facility] Comment on above: Performed By: #### L [id number] ####Obiee Obia Solution Architect: MARY SOTELO ([id number])[facility])[address] [place] [address] RBC (Bld) [#/Vol] 2.69 10*6/uL Low 3.80-5.20 [facility] Comment on above: Performed By: #### L [id number] ####Obiee Obia Solution Architect: MARY SOTELO ([id number])[facility])[address] [place] [address] WBC (Bld) [#/Vol] 6.5 10*3/uL Normal 3.6-10.7 [facility] Comment on above: Performed By: #### L [id number] ####Obiee Obia Solution Architect: MARY SOTELO ([id number])[facility])[address] [place] [address] CKon 07-29-2024 CK [Catalytic activity/Vol] 564 U/L High 30-170 [facility] Comment on above: Performed By: #### L AB19, LAB62 ####Obiee Obia Solution Architect: MARY SOTELO ([id number])[facility])[address] [place] [address] ECG 12-LEADon 07-29-2024 ECG 12-LEAD IMPRESSION: Sinus rhythm Multiple ventricular premature complexes Anterior infarct, old Electronically Signed On 07-29-2024 20:06:11 EDT by Eladio Valle Normal [facility] GLUCOSE, RANDOMon 07-29-2024 Glucose [Mass/Vol] 163 mg/dL High 70-100 [facility] Comment on above: Performed By: #### L AB82 ####Obiee Obia Solution Architect: MARY SOTELO ([id number])[facility] ([facility])[address] [place] [address] IDNon 07-29-2024 IDN Normal [facility] Nursing Noteon 07-29-2024 Nursing Note Patient returned fro m IR. Normal [facility] Nursing Note Normal [facility] Nursing Note To IR for tunneled v as cath. Normal [facility] Nursing Note Dr. Mahajan came by an d said EEG could be discontinued. Normal [facility] Nursing Note Called IR. Patient will get her tunneled catheter this afternoon. Normal [facility] Nursing Note Dr. Heath and gisselle palacios here. They were notified of issues with vas cath. They will talk to Renal to decide what to do. Repostion line vs cath roel vs HD? Normal [facility] Nursing Note CRRT alarming extremely negative again. Blood returned. Set disposed. Vas cath lines flushed. Normal [facility] Nursing Note CRRT alarming extremely negative pressure. Lines clamped and disconnected. Vas cath ports flushed again. CRRT restarted. Normal [facility] Nursing Note CRRT alarming extremely negative. Lines clamped. Vas cath ports flushed. Red line still pulls back easier. Will keep return line attached to red port. Normal [facility] Nursing Note CRRT alarming extremely negative. Lines clamped. Vas cath ports flushed. Red port pulls back easier. Will attach return line to red port. CRRT restarted. Normal [facility] Nursing Note Cath roel removed fro m vas cath. Both ports flush easily but neither draw back easily. CRRT started. Normal [facility] Nursing Note CRRT paused d/t acce ss line clotting at approximately [id number]. Trouble shooting attempted. Cath flow ordered and given at 0646. Normal [facility] Progress Noteon 07-29-2024 Progress Note 07/29/24 1249 Wean Screen Safety Screen Spontaneous Breathing Trial (SBT - RT) (sedation not weaned or turned off) No SBT done. Normal [facility] Progress Note Normal [facility] Progress Note Normal [facility] Progress Note OCCUPATIONAL THERAPY [facility] Name/MRN: Sandy Deng ([id number]) Date: 07/29/2024 Pt remains on strict bed rest. Will continue to follow. Jamey Muro, OT Normal [facility] Progress Note Normal [facility] Progress Note Normal [facility] Progress Note Normal [facility] RENAL FUNCTION PANELon 07-29 Albumin [Mass/Vol] 2.0 g/dL Low 3.5-5.0 [facility] Comment on above: Performed By: #### L AB19 ####Obiee Obia Solution Architect: MARY SOTELO ([id number])[facility])[address] [place] [address] Anion gap [Moles/Vol] 2 mmol/L Low 3-13 [facility] Comment on above: Performed By: #### L AB19 ####Obiee Obia Solution Architect: MARY SOTELO ([id number])[facility])[address] [place] [address] Calcium [Mass/Vol] 8.6 mg/dL Normal 8.4-10.4 [facility] Comment on above: Performed By: #### L AB19 ####Obiee Obia Solution Architect: MARY SOTELO ([id number])[facility])[address] [place] [address] [place] Chloride [Moles/Vol] 106 mmol/L Normal 98-107 [facility] Comment on above: Performed By: #### L AB19 ####Obiee Obia Solution Architect: MARY SOTELO ([id number])[facility])[address] [place] [address] [place] CO2 [Moles/Vol] 26 mmol/L Normal 22-30 [facility] Comment on above: Performed By: #### L AB19 ####Obiee Obia Solution Architect: MARY SOTELO ([id number])[facility])[address] [place] [address] [place] Creatinine [Mass/Vol] 1.94 mg/dL High 0.52-1.04 [facility] Comment on above: Performed By: #### L AB19 ####Obiee Obia Solution Architect: MARY SOTELO ([id number])[facility])[address] [place] [address] [place] GLOMERULAR FILTRATION RATE ML/MIN/1.73 SQ M.PREDICTED 28.5 mL/min/1.73m*2 Low >60.0 [facility] Comment on above: Result Comment: Calc ulation based on the Chronic Kidney Disease Epidemiology Collaboration (CKD-EPI) equation refit without adjustment for race Performed By: #### L AB19 ####Obiee Obia Solution Architect: MARY SOTELO ([id number])[facility])[address] [place] [address] Glucose [Mass/Vol] 33 mg/dL Critically low 70-100 [facility] Comment on above: Performed By: #### L AB19 ####Obiee Obia Solution Architect: MARY SOTELO ([id number])[facility] [place] [address] [place] Phosphate [Mass/Vol] 4.4 mg/dL Normal 2.5-4.5 [facility] Comment on above: Performed By: #### L AB19 ####Obiee Obia Solution Architect: MARY SOTELO ([id number])[facility] [place] [address] [place] Potassium [Moles/Vol] 5.0 mmol/L Normal 3.5-5.1 [facility] Comment on above: Performed By: #### L AB19 ####Obiee Obia Solution Architect: MARY SOTELO ([id number])[facility] [place] [address] [place] Sodium [Moles/Vol] 133 mmol/L Low 135-145 [facility] Comment on above: Performed By: #### L AB19 ####Obiee Obia Solution Architect: MARY SOTELO ([id number])[facility] [place] [address] [place] Urea nitrogen [Mass/Vol] 41 mg/dL High 7-17 [facility] Comment on above: Performed By: #### L AB19 ####Obiee Obia Solution Architect: MARY SOTELO ([id number])[facility])[address] [place] [address] Albumin [Mass/Vol] 1.9 g/dL Low 3.5-5.0 [facility] Comment on above: Performed By: #### L AB19, LAB62 ####Obiee Obia Solution Architect: MARY SOTELO ([id number])[facility])[address] [place] [address] Anion gap [Moles/Vol] 2 mmol/L Low 3-13 [facility] Comment on above: Performed By: #### L AB19, LAB62 ####Obiee Obia Solution Architect: MARY SOTELO ([id number])[facility])[address] [place] [address] Calcium [Mass/Vol] 7.6 mg/dL Low 8.4-10.4 [facility] Comment on above: Performed By: #### L AB19, LAB62 ####Obiee Obia Solution Architect: MARY SOTELO ([id number])[facility])[address] [place] [address] Chloride [Moles/Vol] 104 mmol/L Normal 98-107 [facility] Comment on above: Performed By: #### L AB19, LAB62 ####Obiee Obia Solution Architect: MARY SOTELO ([id number])[facility])[address] [place] [address] [place] CO2 [Moles/Vol] 26 mmol/L Normal 22-30 [facility] Comment on above: Performed By: #### L AB19, LAB62 ####Obiee Obia Solution Architect: MARY SOTELO ([id number])[facility])[address] [place] [address] Creatinine [Mass/Vol] 1.59 mg/dL High 0.52-1.04 [facility] Comment on above: Performed By: #### L AB19, LAB62 ####Obiee Obia Solution Architect: MARY SOTELO ([id number])[facility])[address] [place] [address] GLOMERULAR FILTRATION RATE ML/MIN/1.73 SQ M.PREDICTED 36.1 mL/min/1.73m*2 Low >60.0 [facility] Comment on above: Result Comment: Calc ulation based on the Chronic Kidney Disease Epidemiology Collaboration (CKD-EPI) equation refit without adjustment for race Performed By: #### L AB19, LAB62 ####Obiee Obia Solution Architect: MARY SOTELO ([id number])[facility])[address] [place] [address] Glucose [Mass/Vol] 145 mg/dL High 70-100 [facility] Comment on above: Performed By: #### L AB19, LAB62 ####Obiee Obia Solution Architect: MARY SOTELO ([id number])[facility])[address] [place] [address] Phosphate [Mass/Vol] 3.7 mg/dL Normal 2.5-4.5 [facility] Comment on above: Performed By: #### L AB19, LAB62 ####Obiee Obia Solution Architect: MARY SOTELO ([id number])[facility])[address] [place] [address] [place] Potassium [Moles/Vol] 4.9 mmol/L Normal 3.5-5.1 [facility] Comment on above: Performed By: #### L AB19, LAB62 ####Obiee Obia Solution Architect: MARY SOTELO ([id number])[facility])[address] [place] [address] [place] Sodium [Moles/Vol] 131 mmol/L Low 135-145 [facility] Comment on above: Performed By: #### L AB19, LAB62 ####Obiee Obia Solution Architect: MARY SOTELO ([id number])[facility])[address] [place] [address] [place] Urea nitrogen [Mass/Vol] 35 mg/dL High 7-17 [facility] Comment on above: Performed By: #### L AB19, LAB62 ####Obiee Obia Solution Architect: MARY [id number])[facility] [place] [address] Albumin [Mass/Vol] 2.0 g/dL Low 3.5-5.0 [facility] Comment on above: Performed By: #### L AB19 ####Obiee Obia Solution Architect: MARY SOTELO ([id number])[facility] [place] [address] [place] Anion gap [Moles/Vol] 1 mmol/L Low 3-13 [facility] Comment on above: Performed By: #### L AB19 ####Obiee Obia Solution Architect: MARY SOTELO ([id number])[facility])[address] [place] [address] Calcium [Mass/Vol] 7.5 mg/dL Low 8.4-10.4 [facility] Comment on above: Performed By: #### L AB19 ####Obiee Obia Solution Architect: MARY SOTELO ([id number])[facility] [place] [address] [place] Chloride [Moles/Vol] 104 mmol/L Normal 98-107 [facility] Comment on above: Performed By: #### L AB19 ####Obiee Obia Solution Architect: MARY SOTELO ([id number])[facility] [place] [address] [place] CO2 [Moles/Vol] 25 mmol/L Normal 22-30 [facility] Comment on above: Performed By: #### L AB19 ####Obiee Obia Solution Architect: MARY SOTELO ([id number])[facility])[address] [place] [address] [place] Creatinine [Mass/Vol] 1.32 mg/dL High 0.52-1.04 [facility] Comment on above: Performed By: #### L AB19 ####Obiee Obia Solution Architect: MARY SOTELO ([id number])[facility] [place] [address] [place] GLOMERULAR FILTRATION RATE ML/MIN/1.73 SQ M.PREDICTED 45.2 mL/min/1.73m*2 Low >60.0 [facility] Comment on above: Result Comment: Calc ulation based on the Chronic Kidney Disease Epidemiology Collaboration (CKD-EPI) equation refit without adjustment for race Performed By: #### L AB19 ####Obiee [employer] Solution Architect: MARY SOTELO ([id number])[facility])[address] [place] [address] Glucose [Mass/Vol] 206 mg/dL High 70-100 [facility] Comment on above: Performed By: #### L AB19 ####Obiee Ob[employer] Solution Architect: MARY SOTELO ([id number])[facility])[address] [place] [address] Phosphate [Mass/Vol] 3.2 mg/dL Normal 2.5-4.5 [facility] Comment on above: Performed By: #### L AB19 ####Obiee Obia Solution Architect: MARY SOTELO ([id number])[facility])[address] [place] [address] Potassium [Moles/Vol] 5.2 mmol/L High 3.5-5.1 [facility] Comment on above: Performed By: #### L AB19 ####Obiee [employer] Solution Architect: MARY SOTELO ([id number])[facility])[address] [place] [address] Sodium [Moles/Vol] 131 mmol/L Low 135-145 [facility] Comment on above: Performed By: #### L AB19 ####Obiee [employer] Solution Architect: MARY SOTELO ([id number])[facility])[address] [place] [address] [place] Urea nitrogen [Mass/Vol] 28 mg/dL High 7-17 [facility] Comment on above: Performed By: #### L AB19 ####Ob[employer]e [employer] Solution Architect: MARY SOTELO ([id number])[facility])[address] [place] [address] [place] Respiratory Cultureon 2023 [facility] Comment on above: Performed By: #### M 100.2400, M100.2000 ####[facility] [id number] [place], [address] XR CHEST 1 VIEWon 07-29-2024 XR CHEST 1 VIEW Normal [facility] BASIC METABOLIC PANELon 07-05 Anion gap [Moles/Vol] 4 mmol/L Normal 3-13 [facility] Comment on above: Performed By: #### L AB103, [id number], LAB15 ####[employer] Architect: MARY SOTELO ([id number])[facility])[address] [place] [address] Calcium [Mass/Vol] 7.4 mg/dL Low 8.4-10.4 [facility] Comment on above: Performed By: #### Dora AB103, [id number], LAB15 ####[employer] Architect: MARY SOTELO ([id number])[facility])[address] [place] [address] Chloride [Moles/Vol] 104 mmol/L Normal 98-107 [facility] Comment on above: Performed By: #### L AB103, [id number], LAB15 ####[employer] Architect: MARY SOTELO ([id number])[facility])[address] [place] [address] CO2 [Moles/Vol] 23 mmol/L Normal 22-30 [facility] Comment on above: Performed By: #### L AB103, [id number], LAB15 ####[employer] Architect: MARY SOTELO ([id number])[facility])[address] [place] [address] [place] Creatinine [Mass/Vol] 1.80 mg/dL High 0.52-1.04 [facility] Comment on above: Performed By: #### L AB103, [id number], LAB15 ####Ob[employer]e [employer] Solution Architect: MARY SOTELO ([id number])[facility])[address] [place] [address] [place] GLOMERULAR FILTRATION RATE ML/MIN/1.73 SQ M.PREDICTED 31.1 mL/min/1.73m*2 Low >60.0 [facility] Comment on above: Result Comment: Calc ulation based on the Chronic Kidney Disease Epidemiology Collaboration (CKD-EPI) equation refit without adjustment for race Performed By: #### L AB103, [id number], LAB15 ####[employer] Architect: MARY SOTELO ([id number])[facility])[address] [place] [address] Glucose [Mass/Vol] 143 mg/dL High 70-100 [facility] Comment on above: Performed By: #### L AB103, [id number], LAB15 ####[employer] Architect: MARY SOTELO ([id number])[facility])[address] [place] [address] Potassium [Moles/Vol] 4.5 mmol/L Normal 3.5-5.1 [facility] Comment on above: Performed By: #### Dora [id number], [id number], [id number] ####[employer] Architect: MARY SOTELO ([id number])[facility] [place] [address] [place] Sodium [Moles/Vol] 131 mmol/L Low 135-145 [facility] Comment on above: Performed By: #### L [id number], [id number], [id number] ####[employer] Architect: MARY SOTELO ([id number])[facility] ([facility])[address] [place] [address] [place] Urea nitrogen [Mass/Vol] 34 mg/dL High 7-17 [facility] Comment on above: Performed By: #### L [id number], [id number], LAB15 ####[employer] Architect: MARY SOTELO ([id number])[facility] ([facility])[address] [place] [address] [place] BLOOD GAS ARTERIALon 024 Base excess Calc (Bld) [Moles/Vol] -1.2000 mmol/L Normal -3.0-3.0 [facility] Comment on above: Performed By: #### L [id number] ####Obiee [employer] Solution Architect: MARY SOTELO ([id number])[facility] ([facility])[address] [place] [address] CO2 [Moles/Vol] 24.6 mmol/L Normal 23.0-27.0 [facility] Comment on above: Performed By: #### L AB76 ####Obiee Obia Solution Architect: MARY SOTELO ([id number])[facility] [place] [address] HCO3 (Bld) [Moles/Vol] 23.4 mmol/L Normal 21.0-25.0 [facility] Comment on above: Performed By: #### L [id number] ####Obiee Obia Solution Architect: MARY SOTELO ([id number])[facility] ([facility])[address] [place] [address] Hemoglobin (Bld) [Mass/Vol] 9.2 g/dL Normal Screen only [facility] Comment on above: Performed By: #### L [id number] ####Obiee Obia Solution Architect: MARY SOTELO ([id number])[facility] ([facility])[address] [place] [address] OXYGEN SATURATION (%) IN ARTERIAL BLOOD 98.1 % Normal 95.0-100.0 [facility] Comment on above: Performed By: #### L [id number] ####Obiee Obia Solution Architect: MARY SOTELO ([id number])[facility] ([facility])[address] [place] [address] PCO2 ARTERIAL 38.6 mm Hg Normal >35.0-<45.0 [facility] Comment on above: Performed By: #### L [id number] ####Obiee Obia Solution Architect: MARY SOTELO ([id number])[facility] ([facility])[address] [place] [address] PH ARTERIAL 7.401 Normal 7.350-7.450 [facility] Comment on above: Performed By: #### L AB76 ####Obiee Obia Solution Architect: MARY SOTELO ([id number])[facility] ([facility])[address] [place] [address] PO2 ARTERIAL 120.0 mm Hg High 80.0-100.0 [facility] Comment on above: Performed By: #### L [id number] ####Obiee Obia Solution Architect: MARY SOTELO ([id number])[facility])[address] [place] [address] [place] SOURCE OF OXYGEN Vent Normal [facility] Comment on above: Performed By: #### L [id number] ####Obiee Obia Solution Architect: MARY SOTELO ([id number])[facility])[address] [place] [address] [place] CALCIUM, IONIZEDon 4 CALCIUM IONIZED 4.10 mg/dL Low 4.30-5.20 [facility] Comment on above: Performed By: #### L AB54 ####Obiee Obia Solution Architect: MARY SOTELO ([id number])[facility])[address] [place] [address] PH, IONIZED CALCIUM 7.52 High 7.31-7.46 [facility] Comment on above: Performed By: #### L AB54 ####Obiee Obia Solution Architect: MARY SOTELO ([id number])[facility] ([facility])[address] [place] [address] [place] CALCIUM IONIZED 4.30 mg/dL Normal 4.30-5.20 [facility] Comment on above: Performed By: #### L AB54 ####Obiee Obia Solution Architect: MARY SOTELO ([id number])[facility])[address] [place] [address] [place] PH, IONIZED CALCIUM 7.46 Normal 7.31-7.46 [facility] Comment on above: Performed By: #### L AB54 ####Obiee Obia Solution Architect: MARY SOTELO ([id number])[facility] ([facility])[address] [place] [address] [place] CALCIUM IONIZED 4.20 mg/dL Low 4.30-5.20 [facility] Comment on above: Performed By: #### L AB54 ####Obiee Obia Solution Architect: MARY SOTELO ([id number])[facility])[address] [place] [address] [place] PH, IONIZED CALCIUM 7.38 Normal 7.31-7.46 [facility] Comment on above: Performed By: #### L AB54 ####Obiee Obia Solution Architect: MARY SOTELO ([id number])[facility])[address] [place] [address] CALCIUM IONIZED 4.10 mg/dL Low 4.30-5.20 [facility] Comment on above: Performed By: #### L AB54 ####Obiee Obia Solution Architect: MARY SOTELO ([id number])[facility])[address] [place] [address] PH, IONIZED CALCIUM 7.44 Normal 7.31-7.46 [facility] Comment on above: Performed By: #### L AB54 ####Obiee Obia Solution Architect: MARY SOTELO ([id number])[facility])[address] [place] [address] CARECOORDon 07-28-2024 CARECOORD Normal [facility] CBC WITH AUTO DIFFERENTIALon 07-28-2024 Basophils (Bld) [#/Vol] 0.0 10*3/uL Normal 0.0-0.2 [facility] Comment on above: Performed By: #### L [id number] ####Obiee Obia Solution Architect: MARY SOTELO ([id number])[facility])[address] [place] [address] Basophils/100 WBC (Bld) 0.1 % Normal 0.0-2.0 [facility] Comment on above: Performed By: #### L [id number] ####Obiee Obia Solution Architect: MARY SOTELO ([id number])[facility])[address] [place] [address] Eosinophils (Bld) [#/Vol] 0.0 10*3/uL Normal 0.0-0.5 [facility] Comment on above: Performed By: #### L [id number] ####Obiee Obia Solution Architect: MARY SOTELO ([id number])[facility])[address] [place] [address] Eosinophils/100 WBC (Bld) 0.0 % Normal 0.0-6.0 [facility] Comment on above: Performed By: #### L [id number] ####Obiee Obia Solution Architect: MARY SOTELO ([id number])[address] Erythrocyte distribution width (RBC) [Ratio] 15.0 % Normal 11.5-15.0 [facility] Comment on above: Performed By: #### L [id number] ####Obiee Obia Solution Architect: MARY SOTELO ([id number])[address] Hematocrit (Bld) [Volume fraction] 25.8 % Low 35.0-47.0 [facility] Comment on above: Performed By: #### L [id number] ####Obiee Obia Solution Architect: MARY SOTELO ([id number])[address] Hemoglobin (Bld) [Mass/Vol] 8.8 g/dL Low 11.7-16.0 [facility] Comment on above: Performed By: #### L [id number] ####Obiee Obia Solution Architect: MARY SOTELO ([id number])[address] IMMATURE GRANS % 0.4 % Normal 0.0-2.0 [facility] Comment on above: Performed By: #### L [id number] ####Obiee Obia Solution Architect: MARY SOTELO ([id number])[address] IMMATURE GRANS ABSOLUTE 0.1 10*3/uL High <0.1 [facility] Comment on above: Performed By: #### L [id number] ####Obiee Obia Solution Architect: MARY SOTELO ([id number])[address] Lymphocytes (Bld) [#/Vol] 0.3 10*3/uL Low 1.0-4.3 [facility] Comment on above: Performed By: #### L [id number] ####Obiee Obia Solution Architect: MARY SOTELO ([id number])[facility])[address] [place] [address] Lymphocytes/100 WBC (Bld) 2.9 % Low 15.0-45.0 [facility] Comment on above: Performed By: #### L [id number] ####Obiee Obia Solution Architect: MARY SOTELO ([id number])[facility])[address] [place] [address] MCH (RBC) [Entitic mass] 28.9 pg Normal 26.0-34.0 [facility] Comment on above: Performed By: #### L [id number] ####Obiee Obia Solution Architect: MARY SOTELO ([id number])[facility])[address] [place] [address] MCHC 34.1 % Normal 30.5-36.0 [facility] Comment on above: Performed By: #### L [id number] ####Obiee Obia Solution Architect: MARY SOTELO ([id number])[facility])[address] [place] [address] MCV (RBC) [Entitic vol] 84.6 fL Normal 77.0-99.0 [facility] Comment on above: Performed By: #### L [id number] ####Obiee Obia Solution Architect: MARY SOTELO ([id number])[facility])[address] [place] [address] Monocytes (Bld) [#/Vol] 0.4 10*3/uL Normal 0.0-0.9 [facility] Comment on above: Performed By: #### L [id number] ####Obiee Obia Solution Architect: MARY SOTELO ([id number])[facility])[address] [place] [address] Monocytes/100 WBC (Bld) 3.6 % Low 5.0-13.0 [facility] Comment on above: Performed By: #### L [id number] ####Obiee Obia Solution Architect: MARY SOTELO ([id number])[facility])[address] [place] [address] NEUTROPHILS ABSOLUTE 10.7 10*3/uL High 1.8-7.5 [facility] Comment on above: Performed By: #### L [id number] ####Obiee Obia Solution Architect: MARY SOTELO ([id number])[facility] ([facility])[address] [place] [address] Neutrophils/100 WBC (Bld) 93.0 % High 38.0-82.0 [facility] Comment on above: Performed By: #### L [id number] ####Obiee Obia Solution Architect: MARY SOTELO ([id number])[facility] ([facility])[address] [place] [address] NRBC 0.0 /100 WBCs Normal 0.0-2.0 [facility] Comment on above: Performed By: #### L [id number] ####Obiee Obia Solution Architect: MARY SOTELO ([id number])[facility] ([facility])[address] [place] [address] Platelet mean volume (Bld) [Entitic vol] 10.5 fL Normal 9.0-12.7 [facility] Comment on above: Performed By: #### L [id number] ####Obiee Obia Solution Architect: MARY SOTELO ([id number])[facility] ([facility])[address] [place] [address] Platelets (Bld) [#/Vol] 160 10*3/uL Normal 140-440 [facility] Comment on above: Performed By: #### L [id number] ####Obiee Obia Solution Architect: MARY SOTELO ([id number])[facility] ([facility])[address] [place] [address] [place] RBC (Bld) [#/Vol] 3.05 10*6/uL Low 3.80-5.20 [facility] Comment on above: Performed By: #### L [id number] ####Obiee Obia Solution Architect: MARY SOTELO ([id number])[facility] ([facility])[address] [place] [address] [place] WBC (Bld) [#/Vol] 11.5 10*3/uL High 3.6-10.7 [facility] Comment on above: Performed By: #### L [id number] ####Obiee Obia Solution Architect: MARY SOTELO ([id number])[facility])[address] [place] [address] COMPREHENSIVE METABOLIC PANE [place] 07-28-2024 Albumin [Mass/Vol] 2.2 g/dL Low 3.5-5.0 [facility] Comment on above: Performed By: #### L [id number], [id number], LAB17 ####Obiee Obia Solution Architect: MARY SOTELO ([id number])[facility] ([facility])[address] [place] [address] ALP [Catalytic activity/Vol] 78 U/L Normal 38-126 [facility] Comment on above: Performed By: #### Dora AB103, [id number], LAB17 ####Obiee Obia Solution Architect: MARY SOTELO ([id number])[facility])[address] [place] [address] ALT [Catalytic activity/Vol] 23 U/L Normal 0-34 [facility] Comment on above: Performed By: #### Dora AB103, [id number], LAB17 ####Obiee Obia Solution Architect: MARY SOTELO ([id number])[facility])[address] [place] [address] Anion gap [Moles/Vol] 4 mmol/L Normal 3-13 [facility] Comment on above: Performed By: #### L AB103, [id number], LAB17 ####Obiee Obia Solution Architect: MARY SOTELO ([id number])[facility])[address] [place] [address] AST [Catalytic activity/Vol] 44 U/L Normal 15-46 [facility] Comment on above: Performed By: #### L AB103, [id number], LAB17 ####Obiee Obia Solution Architect: MARY SOTELO ([id number])[facility])[address] [place] [address] Bilirubin [Mass/Vol] 0.5 mg/dL Normal 0.2-1.3 [facility] Comment on above: Performed By: #### L AB103, [id number], LAB17 ####Obiee Obia Solution Architect: MARY SOTELO ([id number])[facility])[address] [place] [address] Calcium [Mass/Vol] 7.3 mg/dL Low 8.4-10.4 [facility] Comment on above: Performed By: #### Dora AB103, [id number], LAB17 ####Obiee Obia Solution Architect: MARY SOTELO ([id number])[facility])[address] [place] [address] Chloride [Moles/Vol] 102 mmol/L Normal 98-107 [facility] Comment on above: Performed By: #### Dora AB103, [id number], LAB17 ####Obiee Obia Solution Architect: MARY SOTELO ([id number])[facility])[address] [place] [address] CO2 [Moles/Vol] 24 mmol/L Normal 22-30 [facility] Comment on above: Performed By: #### Dora AB103, [id number], LAB17 ####Obiee Obia Solution Architect: MARY SOTELO ([id number])[facility])[address] [place] [address] Creatinine [Mass/Vol] 1.50 mg/dL High 0.52-1.04 [facility] Comment on above: Performed By: #### Dora AB103, [id number], LAB17 ####Obiee Obia Solution Architect: MARY SOTELO ([id number])[facility])[address] [place] [address] [place] GLOMERULAR FILTRATION RATE ML/MIN/1.73 SQ M.PREDICTED 38.8 mL/min/1.73m*2 Low >60.0 [facility] Comment on above: Result Comment: Calc ulation based on the Chronic Kidney Disease Epidemiology Collaboration (CKD-EPI) equation refit without adjustment for race Performed By: #### L AB103, [id number], LAB17 ####Obiee Obia Solution Architect: MARY SOTELO ([id number])[facility])[address] [place] [address] [place] Glucose [Mass/Vol] 149 mg/dL High 70-100 [facility] Comment on above: Performed By: #### L AB103, [id number], LAB17 ####Obiee Obia Solution Architect: MARY SOTELO ([id number])[facility])[address] [place] [address] Potassium [Moles/Vol] 4.5 mmol/L Normal 3.5-5.1 [facility] Comment on above: Performed By: #### L AB103, [id number], LAB17 ####Obiee Obia Solution Architect: MARY SOTELO ([id number])[facility])[address] [place] [address] Protein [Mass/Vol] 4.6 g/dL Low 6.3-8.2 [facility] Comment on above: Performed By: #### L AB103, [id number], LAB17 ####Obiee Obia Solution Architect: MARY SOTELO ([id number])[facility])[address] [place] [address] Sodium [Moles/Vol] 130 mmol/L Low 135-145 [facility] Comment on above: Performed By: #### L AB103, [id number], LAB17 ####Obiee Obia Solution Architect: MARY SOTELO ([id number])[facility])[address] [place] [address] Urea nitrogen [Mass/Vol] 31 mg/dL High 7-17 [facility] Comment on above: Performed By: #### L AB103, [id number], LAB17 ####Obiee Obia Solution Architect: MARY SOTELO ([id number])[facility])[address] [place] [address] [place] Consulton 07-28-2024 Consult Normal [facility] ECG 12-LEADon 07-28-2024 ECG 12-LEAD IMPRESSION: Sinus rhythm Multiple ventricular premature complexes Anterior infarct, old Borderline T abnormalities Electronically Signed On 07-28-2024 12:41:46 EDT by Keisha Acosta Normal [facility] IDNon 07-28-2024 IDAnia Normal [facility] MAGNESIUMon 07-28-2024 Magnesium [Mass/Vol] 2.7 mg/dL High 1.6-2.3 [facility] Comment on above: Performed By: #### L AB103, [id number], LAB17 ####Obiee Obia Solution Architect: MARY SOTELO ([id number])[facility] [place] [address] Magnesium [Mass/Vol] 2.2 mg/dL Normal 1.6-2.3 [facility] Comment on above: Performed By: #### L AB103, [id number], LAB15 ####Obiee Obia Solution Architect: MARY SOTELO ([id number])[facility] [place] [address] PHOSPHORUSon 07-28-2024 Phosphate [Mass/Vol] 3.5 mg/dL Normal 2.5-4.5 [facility] Comment on above: Performed By: #### L AB103, [id number], LAB17 ####Obiee Obia Solution Architect: MARY SOTELO ([id number])[facility] [place] [address] Phosphate [Mass/Vol] 3.6 mg/dL Normal 2.5-4.5 [facility] Comment on above: Performed By: #### L AB103, [id number], LAB15 ####Obiee Obia Solution Architect: MARY SOTELO ([id number])[facility] ([facility])[address] [place] [address] Progress Noteon 07-28-2024 Progress Note Normal [facility] Progress Note Normal [facility] Progress Note Normal [facility] Progress Note Normal [facility] RENAL FUNCTION PANELon 07-28 Albumin [Mass/Vol] 2.2 g/dL Low 3.5-5.0 [facility] Comment on above: Performed By: #### L AB19 ####Obiee [employer]ia Solution Architect: MARY SOTELO ([id number])[facility])[address] [place] [address] Anion gap [Moles/Vol] 0 mmol/L Low 3-13 [facility] Comment on above: Performed By: #### L AB19 ####Obiee Obia Solution Architect: MARY SOTELO ([id number])[facility])[address] [place] [address] Calcium [Mass/Vol] 7.4 mg/dL Low 8.4-10.4 [facility] Comment on above: Performed By: #### L AB19 ####Obiee Ob[employer] Solution Architect: MARY SOTELO ([id number])[facility] [place] [address] [place] Chloride [Moles/Vol] 104 mmol/L Normal 98-107 [facility] Comment on above: Performed By: #### L AB19 ####Obiee Obia Solution Architect: MARY SOTELO ([id number])[facility] ([facility])[address] [place] [address] CO2 [Moles/Vol] 26 mmol/L Normal 22-30 [facility] Comment on above: Performed By: #### L AB19 ####Obiee Obia Solution Architect: MARY SOTELO ([id number])[facility])[address] [place] [address] Creatinine [Mass/Vol] 1.26 mg/dL High 0.52-1.04 [facility] Comment on above: Performed By: #### L AB19 ####Obiee Obia Solution Architect: MARY SOTELO ([id number])[facility])[address] [place] [address] [place] GLOMERULAR FILTRATION RATE ML/MIN/1.73 SQ M.PREDICTED 47.8 mL/min/1.73m*2 Low >60.0 [facility] Comment on above: Result Comment: Calc ulation based on the Chronic Kidney Disease Epidemiology Collaboration (CKD-EPI) equation refit without adjustment for race Performed By: #### L AB19 ####Obiee [employer] Solution Architect: MARY SOTELO ([id number])[facility])[address] [place] [address] [place] Glucose [Mass/Vol] 123 mg/dL High 70-100 [facility] Comment on above: Performed By: #### L AB19 ####Obiee [employer] Solution Architect: MARY SOTELO ([id number])[facility] ([facility])[address] [place] [address] [place] Phosphate [Mass/Vol] 2.4 mg/dL Low 2.5-4.5 [facility] Comment on above: Performed By: #### L AB19 ####Obiee [employer] Solution Architect: MARY SOTELO ([id number])[facility] [place] [address] [place] Potassium [Moles/Vol] 4.6 mmol/L Normal 3.5-5.1 [facility] Comment on above: Performed By: #### L AB19 ####Obiee [employer] Solution Architect: MARY SOTELO ([id number])[facility] [place] [address] Sodium [Moles/Vol] 130 mmol/L Low 135-145 [facility] Comment on above: Performed By: #### L AB19 ####Obiee [employer] Solution Architect: MARY SOTELO ([id number])[facility] [place] [address] [place] Urea nitrogen [Mass/Vol] 28 mg/dL High 7-17 [facility] Comment on above: Performed By: #### L AB19 ####Obiee [employer] Solution Architect: MARY SOTELO ([id number])[facility] [place] [address] Albumin [Mass/Vol] 2.1 g/dL Low 3.5-5.0 [facility] Comment on above: Performed By: #### L AB19 ####Obiee [employer] Solution Architect: MARY SOTELO ([id number])[facility] [place] [address] [place] Anion gap [Moles/Vol] 3 mmol/L Normal 3-13 [facility] Comment on above: Performed By: #### L AB19 ####Ob[employer]e [employer] Architect: MARY SOTELO ([id number])[facility] [place] [address] [place] Calcium [Mass/Vol] 7.8 mg/dL Low 8.4-10.4 [facility] Comment on above: Performed By: #### L AB19 ####Ob[employer]e [employer] Solution Architect: MARY SOTELO ([id number])[facility])[address] [place] [address] Chloride [Moles/Vol] 103 mmol/L Normal 98-107 [facility] Comment on above: Performed By: #### L AB19 ####Ob[employer]e [employer] Solution Architect: MARY SOTELO ([id number])[facility] [place] [address] CO2 [Moles/Vol] 26 mmol/L Normal 22-30 [facility] Comment on above: Performed By: #### L AB19 ####Obiee [employer] Solution Architect: MARY SOTELO ([id number])[facility] [place] [address] Creatinine [Mass/Vol] 1.33 mg/dL High 0.52-1.04 [facility] Comment on above: Performed By: #### L AB19 ####Ob[employer]e [employer] Solution Architect: MARY SOTELO ([id number])[facility])[address] [place] [address] [place] GLOMERULAR FILTRATION RATE ML/MIN/1.73 SQ M.PREDICTED 44.8 mL/min/1.73m*2 Low >60.0 [facility] Comment on above: Result Comment: Calc ulation based on the Chronic Kidney Disease Epidemiology Collaboration (CKD-EPI) equation refit without adjustment for race Performed By: #### L AB19 ####[employer] Architect: MARY SOTELO ([id number])[facility] [place] [address] [place] Glucose [Mass/Vol] 139 mg/dL High 70-100 [facility] Comment on above: Performed By: #### L AB19 ####Ob[employer]e [employer] Architect: MARY SOTELO ([id number])[facility] [place] [address] [place] Phosphate [Mass/Vol] 2.7 mg/dL Normal 2.5-4.5 [facility] Comment on above: Performed By: #### L AB19 ####[employer] Architect: MARY SOTELO ([id number])[facility])[address] [place] [address] Potassium [Moles/Vol] 4.2 mmol/L Normal 3.5-5.1 [facility] Comment on above: Performed By: #### L [id number] ####[employer] Architect: MARY SOTELO ([id number])[facility] ([facility])[address] [place] [address] Sodium [Moles/Vol] 131 mmol/L Low 135-145 [facility] Comment on above: Performed By: #### L [id number] ####[employer] Architect: MARY SOTELO ([id number])[facility] ([facility])[address] [place] [address] Urea nitrogen [Mass/Vol] 30 mg/dL High 7-17 [facility] Comment on above: Performed By: #### L [id number] ####[employer] Architect: MARY SOTELO ([id number])[facility] ([facility])[address] [place] [address] XR CHEST 1 VIEWon 07-28-2024 XR CHEST 1 VIEW Normal [facility] BASIC METABOLIC PANELon 07-05 Anion gap [Moles/Vol] 6 mmol/L Normal 3-13 [facility] Comment on above: Performed By: #### L [id number], LAB15 ####[employer] Architect: MARY SOTELO ([id number])[facility] ([facility])[address] [place] [address] Calcium [Mass/Vol] 7.3 mg/dL Low 8.4-10.4 [facility] Comment on above: Performed By: #### L AB103, LAB15 ####[employer] Architect: MARY SOTELO ([id number])[facility] ([facility])[address] [place] [address] Chloride [Moles/Vol] 102 mmol/L Normal 98-107 [facility] Comment on above: Performed By: #### L AB103, LAB15 ####[employer] Architect: MARY SOTELO ([id number])[facility] ([facility] [place] [address] CO2 [Moles/Vol] 24 mmol/L Normal 22-30 [facility] Comment on above: Performed By: #### L AB103, LAB15 ####Obiee Obia Solution Architect: MARY SOTELO ([id number])[facility])[address] [place] [address] Creatinine [Mass/Vol] 2.18 mg/dL High 0.52-1.04 [facility] Comment on above: Performed By: #### L AB103, LAB15 ####Obiee Obia Solution Architect: MARY SOTELO ([id number])[facility])[address] [place] [address] GLOMERULAR FILTRATION RATE ML/MIN/1.73 SQ M.PREDICTED 24.7 mL/min/1.73m*2 Low >60.0 [facility] Comment on above: Result Comment: Calc ulation based on the Chronic Kidney Disease Epidemiology Collaboration (CKD-EPI) equation refit without adjustment for race Performed By: #### L AB103, LAB15 ####Obiee Obia Solution Architect: MARY SOTELO ([id number])[facility])[address] [place] [address] Glucose [Mass/Vol] 87 mg/dL Normal 70-100 [facility] Comment on above: Performed By: #### L AB103, LAB15 ####Obiee Obia Solution Architect: MARY SOTELO ([id number])[facility])[address] [place] [address] Potassium [Moles/Vol] 3.6 mmol/L Normal 3.5-5.1 [facility] Comment on above: Performed By: #### L AB103, LAB15 ####Obiee Obia Solution Architect: MARY SOTELO ([id number])[facility])[address] [place] [address] Sodium [Moles/Vol] 131 mmol/L Low 135-145 [facility] Comment on above: Performed By: #### L AB103, LAB15 ####Obiee Obia Solution Architect: MARY SOTELO ([id number])[facility] ([facility])[address] [place] [address] Urea nitrogen [Mass/Vol] 41 mg/dL High 7-17 [facility] Comment on above: Performed By: #### L AB103, LAB15 ####Obiee Obia Solution Architect: MARY SOTELO ([id number])[facility] ([facility])[address] [place] [address] BLOOD GAS ARTERIALon 024 Base excess Calc (Bld) [Moles/Vol] 0.4 mmol/L Normal -3.0-3.0 [facility] Comment on above: Performed By: #### L AB76 ####Obiee Obia Solution Architect: MARY SOTELO ([id number])[facility] ([facility])[address] [place] [address] CO2 [Moles/Vol] 26.5 mmol/L Normal 23.0-27.0 [facility] Comment on above: Performed By: #### L AB76 ####Obiee Obia Solution Architect: MARY SOTELO ([id number])[facility] ([facility])[address] [place] [address] HCO3 (Bld) [Moles/Vol] 25.3 mmol/L High 21.0-25.0 [facility] Comment on above: Performed By: #### L AB76 ####Obiee Obia Solution Architect: MARY SOTELO ([id number])[facility])[address] [place] [address] Hemoglobin (Bld) [Mass/Vol] 8.9 g/dL Normal Screen only [facility] Comment on above: Performed By: #### L AB76 ####Obiee Obia Solution Architect: MARY SOTELO ([id number])[facility])[address] [place] [address] OXYGEN SATURATION (%) IN ARTERIAL BLOOD 97.1 % Normal 95.0-100.0 [facility] Comment on above: Performed By: #### L AB76 ####Obiee Obia Solution Architect: MARY [id number])[facility] ([facility])[address] [place] [address] PCO2 ARTERIAL 41.9 mm Hg Normal >35.0-<45.0 [facility] Comment on above: Performed By: #### L AB76 ####Obiee Obia Solution Architect: MARY SOTELO ([id number])[facility] [place] [address] PH ARTERIAL 7.398 Normal 7.350-7.450 [facility] Comment on above: Performed By: #### L AB76 ####Obiee Obia Solution Architect: MARY SOTELO ([id number])[facility] ([facility])[address] [place] [address] PO2 ARTERIAL 100.1 mm Hg High 80.0-100.0 [facility] Comment on above: Performed By: #### L AB76 ####Obiee Obia Solution Architect: MARY SOTELO ([id number])[facility] ([facility])[address] [place] [address] SOURCE OF OXYGEN 30% Oxygen Normal [facility] Comment on above: Result Comment: vent Performed By: #### L AB76 ####Obiee Obia Solution Architect: MARY SOTELO ([id number])[facility] ([facility])[address] [place] [address] Base excess Calc (Bld) [Moles/Vol] -2.5000 mmol/L Normal -3.0-3.0 [facility] Comment on above: Order Comment: 30 mi n after vent changes Performed By: #### L AB76 ####Obiee Obia Solution Architect: MARY SOTELO ([id number])[facility] ([facility])[address] [place] [address] CO2 [Moles/Vol] 26.0 mmol/L Normal 23.0-27.0 [facility] Comment on above: Order Comment: 30 mi n after vent changes Performed By: #### L AB76 ####Obiee Obia Solution Architect: MARY SOTELO ([id number])[facility] ([facility])[address] [place] [address] [place] HCO3 (Bld) [Moles/Vol] 24.4 mmol/L Normal 21.0-25.0 S [facility] Comment on above: Order Comment: 30 mi n after vent changes Performed By: #### L AB76 ####Obiee Obia Solution Architect: MARY SOTELO ([id number])[facility] ([facility])[address] [place] [address] Hemoglobin (Bld) [Mass/Vol] 9.3 g/dL Normal Screen only [facility] Comment on above: Order Comment: 30 mi n after vent changes Performed By: #### L AB76 ####Obiee Obia Solution Architect: MARY SOTELO ([id number])[facility] ([facility])[address] [place] [address] OXYGEN SATURATION (%) IN ARTERIAL BLOOD 97.1 % Normal 95.0-100.0 [facility] Comment on above: Order Comment: 30 mi n after vent changes Performed By: #### L AB76 ####Obiee Obia Solution Architect: MARY SOTELO ([id number])[facility])[address] [place] [address] PCO2 ARTERIAL 52.3 mm Hg High >35.0-<45.0 [facility] Comment on above: Order Comment: 30 mi n after vent changes Performed By: #### L AB76 ####Obiee Obia Solution Architect: MARY SOTELO ([id number])[facility])[address] [place] [address] PH ARTERIAL 7.286 Low 7.350-7.450 [facility] Comment on above: Order Comment: 30 mi n after vent changes Performed By: #### L AB76 ####Obiee Obia Solution Architect: MARY SOTELO ([id number])[facility] ([facility])[address] [place] [address] PO2 ARTERIAL 115.1 mm Hg High 80.0-100.0 [facility] Comment on above: Order Comment: 30 mi n after vent changes Performed By: #### L AB76 ####Obiee Obia Solution Architect: MARY SOTELO ([id number])[facility] ([facility])[address] [place] [address] SOURCE OF OXYGEN 30% Oxygen Normal [facility] Comment on above: Order Comment: 30 mi n after vent changes Result Comment: vent Performed By: #### L AB76 ####Obiee Obia Solution Architect: MARY SOTELO ([id number])[facility] ([facility])[address] [place] [address] Base excess Calc (Bld) [Moles/Vol] -6.7000 mmol/L Low -3.0-3.0 [facility] Comment on above: Performed By: #### L AB76 ####Obiee Obia Solution Architect: MARY SOTELO ([id number])[facility] ([facility])[address] [place] [address] CO2 [Moles/Vol] 22.8 mmol/L Low 23.0-27.0 [facility] Comment on above: Performed By: #### L AB76 ####Obiee Obia Solution Architect: MARY SOTELO ([id number])[facility] ([facility])[address] [place] [address] HCO3 (Bld) [Moles/Vol] 21.1 mmol/L Normal 21.0-25.0 [facility] Comment on above: Performed By: #### L AB76 ####Obiee Obia Solution Architect: MARY SOTELO ([id number])[facility] ([facility])[address] [place] [address] Hemoglobin (Bld) [Mass/Vol] 9.9 g/dL Normal Screen only [facility] Comment on above: Performed By: #### L AB76 ####Obiee Obia Solution Architect: MARY SOTELO ([id number])[facility] ([facility])[address] [place] [address] OXYGEN SATURATION (%) IN ARTERIAL BLOOD 96.9 % Normal 95.0-100.0 [facility] Comment on above: Performed By: #### L AB76 ####Obiee Obia Solution Architect: MARY SOTELO ([id number])[facility] ([facility])[address] [place] [address] PCO2 ARTERIAL 53.5 mm Hg High >35.0-<45.0 [facility] Comment on above: Performed By: #### L AB76 ####Obiee Obia Solution Architect: MARY SOTELO ([id number])[facility] ([facility])[address] [place] [address] PH ARTERIAL 7.214 Low 7.350-7.450 [facility] Comment on above: Performed By: #### L AB76 ####Obiee Obia Solution Architect: MARY SOTELO ([id number])[facility] ([facility])[address] [place] [address] PO2 ARTERIAL 108.9 mm Hg High 80.0-100.0 [facility] Comment on above: Performed By: #### L AB76 ####Obiee Obia Solution Architect: MARY SOTEOL ([id number])[facility] ([facility])[address] [place] [address] SOURCE OF OXYGEN Vent Normal [facility] Comment on above: Performed By: #### L AB76 ####Obiee Obia Solution Architect: MARY SOTELO ([id number])[facility] ([facility])[address] [place] [address] C3, BLOODon 07-27-2024 C3, BLOOD 56 mg/dL Low 88-165 [facility] Comment on above: Performed By: #### L AB152, [id number] ####Obiee Obia Solution Architect: MARLENY GUZMÁN ([id number])[facility] ([facility])[address] [place] [address] C4 COMPLEMENTon 07-27-2024 C4, BLOOD 10 mg/dL Low 14-44 [facility] Comment on above: Performed By: #### L [id number], [id number] ####Obiee Obia Solution Architect: MARLENY GUZMÁN ([id number])[facility] ([facility])[address] [place] [address] [place] CALCIUM, IONIZEDon 4 CALCIUM IONIZED 4.00 mg/dL Low 4.30-5.20 [facility] Comment on above: Performed By: #### L AB54 ####Obiee Obia Solution Architect: MARY SOTELO ([id number])[facility] ([facility])[address] [place] [address] PH, IONIZED CALCIUM 7.50 High 7.31-7.46 [facility] Comment on above: Performed By: #### L AB54 ####Obiee Obia Solution Architect: MARY SOTELO ([id number])[facility] ([facility])[address] [place] [address] CALCIUM IONIZED 4.20 mg/dL Low 4.30-5.20 [facility] Comment on above: Performed By: #### L AB54 ####Obiee Obia Solution Architect: MARY SOTELO ([id number])[facility])[address] [place] [address] PH, IONIZED CALCIUM 7.32 Normal 7.31-7.46 [facility] Comment on above: Performed By: #### L AB54 ####Obiee Obia Solution Architect: MARY SOTELO ([id number])[facility])[address] [place] [address] CALCIUM IONIZED 3.70 mg/dL Low 4.30-5.20 [facility] Comment on above: Performed By: #### L AB54 ####Obiee Obia Solution Architect: MARY OSTELO ([id number])[facility])[address] [place] [address] PH, IONIZED CALCIUM 7.22 Low 7.31-7.46 [facility] Comment on above: Performed By: #### L AB54 ####Obiee Obia Solution Architect: MARY SOTELO ([id number])[facility])[address] [place] [address] CARECOORDon 07-27-2024 CARECOORD Normal [facility] CBC WITH AUTO DIFFERENTIALon 07-27-2024 Erythrocyte distribution width (RBC) [Ratio] 15.3 % High 11.5-15.0 [facility] Comment on above: Performed By: #### L [id number], [id number] ####Obiee Obia Solution Architect: MARY SOTELO ([id number])[facility])[address] [place] [address] Hematocrit (Bld) [Volume fraction] 27.2 % Low 35.0-47.0 [facility] Comment on above: Performed By: #### L [id number], [id number] ####Obiee Obia Solution Architect: MARY SOTELO ([id number])[facility])[address] [place] [address] Hemoglobin (Bld) [Mass/Vol] 8.8 g/dL Low 11.7-16.0 [facility] Comment on above: Performed By: #### L [id number], [id number] ####Obiee Obia Solution Architect: MARY SOTELO ([id number])[facility])[address] [place] [address] MCH (RBC) [Entitic mass] 28.5 pg Normal 26.0-34.0 [facility] Comment on above: Performed By: #### L [id number], [id number] ####Obiee Obia Solution Architect: MARY SOTELO ([id number])[facility] ([facility])[address] [place] [address] MCHC 32.4 % Normal 30.5-36.0 [facility] Comment on above: Performed By: #### L [id number], [id number] ####Obiee Obia Solution Architect: MARY SOTELO ([id number])[facility])[address] [place] [address] MCV (RBC) [Entitic vol] 88.0 fL Normal 77.0-99.0 [facility] Comment on above: Performed By: #### L [id number], [id number] ####Obiee Obia Solution Architect: MARY SOTELO ([id number])[facility])[address] [place] [address] Platelet mean volume (Bld) [Entitic vol] 10.4 fL Normal 9.0-12.7 [facility] Comment on above: Performed By: #### L [id number], [id number] ####Obiee Obia Solution Architect: MARY SOTELO ([id number])[facility])[address] [place] [address] Platelets (Bld) [#/Vol] 186 10*3/uL Normal 140-440 [facility] Comment on above: Performed By: #### Dora [id number], [id number] ####Obiee Obia Solution Architect: MARY SOTELO ([id number])[facility] ([facility])[address] [place] [address] RBC (Bld) [#/Vol] 3.09 10*6/uL Low 3.80-5.20 [facility] Comment on above: Performed By: #### Dora [id number], [id number] ####Obiee Obia Solution Architect: MARY SOTELO ([id number])[facility] ([facility])[address] [place] [address] WBC (Bld) [#/Vol] 14.5 10*3/uL High 3.6-10.7 [facility] Comment on above: Performed By: #### Dora [id number], [id number] ####Obiee Obia Solution Architect: MARY SOTELO ([id number])[facility] ([facility])[address] [place] [address] CKon 07-27-2024 CK [Catalytic activity/Vol] 865 U/L High 30-170 [facility] Comment on above: Performed By: #### L AB62, LAB17, [id number], [id number] ####Obiee Obia Solution Architect: MARY SOTELO ([id number])[facility] ([facility])[address] [place] [address] COMPREHENSIVE METABOLIC PANE [place] 07-27-2024 Albumin [Mass/Vol] 2.4 g/dL Low 3.5-5.0 [facility] Comment on above: Performed By: #### L AB62, LAB17, [id number], [id number] ####Obiee Obia Solution Architect: MARY SOTELO ([id number])[facility] ([facility])[address] [place] [address] ALP [Catalytic activity/Vol] 66 U/L Normal 38-126 [facility] Comment on above: Performed By: #### L AB62, LAB17, [id number], [id number] ####Obiee Obia Solution Architect: MARY SOTELO ([id number])[facility] ([facility])[address] [place] [address] ALT [Catalytic activity/Vol] 19 U/L Normal 0-34 [facility] Comment on above: Performed By: #### L AB62, LAB17, [id number], [id number] ####Obiee Obia Solution Architect: MARY SOTELO ([id number])[facility] ([facility])[address] [place] [address] Anion gap [Moles/Vol] 11 mmol/L Normal 3-13 [facility] Comment on above: Performed By: #### L AB62, LAB17, [id number], [id number] ####Obiee Obia Solution Architect: MARY SOTELO ([id number])[facility] ([facility])[address] [place] [address] AST [Catalytic activity/Vol] 28 U/L Normal 15-46 [facility] Comment on above: Performed By: #### L AB62, LAB17, UVN821, [id number] ####Obiee Obia Solution Architect: MARY SOTELO ([id number])[facility] ([facility])[address] [place] [address] Bilirubin [Mass/Vol] 0.3 mg/dL Normal 0.2-1.3 [facility] Comment on above: Performed By: #### L AB62, LAB17, [id number], ESL356 ####Obiee Obia Solution Architect: MARY SOTELO ([id number])[facility] ([facility])[address] [place] [address] Calcium [Mass/Vol] 6.5 mg/dL Low 8.4-10.4 [facility] Comment on above: Performed By: #### L AB62, LAB17, [id number], [id number] ####Obiee Obia Solution Architect: MARY SOTELO ([id number])[facility])[address] [place] [address] Chloride [Moles/Vol] 101 mmol/L Normal 98-107 [facility] Comment on above: Performed By: #### L AB62, LAB17, [id number], [id number] ####Obiee Obia Solution Architect: MARY SOTELO ([id number])[facility] ([facility])[address] [place] [address] [place] CO2 [Moles/Vol] 18 mmol/L Low 22-30 [facility] Comment on above: Performed By: #### L AB62, LAB17, [id number], [id number] ####Obiee Obia Solution Architect: MARY SOTELO ([id number])[facility] ([facility])[address] [place] [address] Creatinine [Mass/Vol] 4.00 mg/dL High 0.52-1.04 [facility] Comment on above: Performed By: #### L AB62, LAB17, ILK153, [id number] ####Obiee [employer] Solution Architect: MARY SOTELO ([id number])[facility] ([facility])[address] [place] [address] GLOMERULAR FILTRATION RATE ML/MIN/1.73 SQ M.PREDICTED 11.9 mL/min/1.73m*2 Low >60.0 [facility] Comment on above: Result Comment: Calc ulation based on the Chronic Kidney Disease Epidemiology Collaboration (CKD-EPI) equation refit without adjustment for race Performed By: #### L AB62, LAB17, [id number], [id number] ####Obiee Obia Solution Architect: MARY SOTELO ([id number])[facility] ([facility])[address] [place] [address] Glucose [Mass/Vol] 254 mg/dL High 70-100 [facility] Comment on above: Performed By: #### L AB62, LAB17, [id number], [id number] ####Obiee Obia Solution Architect: MARY SOTELO ([id number])[facility])[address] [place] [address] Potassium [Moles/Vol] 4.3 mmol/L Normal 3.5-5.1 [facility] Comment on above: Performed By: #### L AB62, LAB17, [id number], [id number] ####Obiee Obia Solution Architect: MARY SOTELO ([id number])[facility])[address] [place] [address] Protein [Mass/Vol] 4.9 g/dL Low 6.3-8.2 [facility] Comment on above: Performed By: #### L AB62, LAB17, [id number], [id number] ####Obiee [employer]ia Solution Architect: MARY SOTELO ([id number])[facility] ([facility])[address] [place] [address] Sodium [Moles/Vol] 130 mmol/L Low 135-145 [facility] Comment on above: Performed By: #### L AB62, LAB17, [id number], [id number] ####Obiee Obia Solution Architect: MARY SOTELO ([id number])[facility] ([facility])[address] [place] [address] Urea nitrogen [Mass/Vol] 66 mg/dL High 7-17 [facility] Comment on above: Performed By: #### L AB62, LAB17, [id number], [id number] ####Obiee [employer] Solution Architect: MARY SOTELO ([id number])[facility] ([facility])[address] [place] [address] Consulton 07-27-2024 Consult Normal [facility] Consult Normal [facility] Consult Normal [facility] ECG 12-LEADon 07-27-2024 ECG 12-LEAD IMPRESSION: Sinus rhythm Short [place] interval Left anterior fascicular block Anteroseptal infarct, age indeterminate Nonspecific T abnormalities, lateral leads Electronically Signed On 07-27-2024 07:43:40 EDT by Mira Byrd Normal [facility] FREE T4on 07-27-2024 Free T4 [Mass/Vol] 1.67 ng/dL Normal 0.78-2.19 [facility] Comment on above: Performed By: #### L [id number] ####Obiee [employer] Architect: MARY SOTELO ([id number])[facility] ([facility])[address] [place] [address] HEPATITIS B SURFACE ANTIBODY on 07-27-2024 HEPATITIS B VIRUS SURFACE AB <8.0 Normal [facility] Comment on above: Result Comment: ORDE R COMMENTS:Interpretation:<8.0 Non-Reactive8.0-11.9 Equivocal>= 12.0 Ab DetectedNote: If an equivocal result is interpreted, an antibody status is unable to be determined. Collect new specimen if clinically indicated. Performed By: #### L AB471, [id number] ####[employer] Architect: MARY SOTELO ([id number])[facility])[address] [place] [address] HEPATITIS B SURFACE ANTIGENo n 07-27-2024 HEPATITIS B VIRUS SURFACE AG Not detected Normal Not Detected [facility] Comment on above: Performed By: #### L AB471, [id number] ####Obiee [employer] Solution Architect: MARY SOTELO ([id number])[facility])[address] [place] [address] MAGNESIUMon 07-27-2024 Magnesium [Mass/Vol] 1.9 mg/dL Normal 1.6-2.3 [facility] Comment on above: Performed By: #### L AB103, LAB15 ####Obiee Obia Solution Architect: MARY SOTELO ([id number])[facility])[address] [place] [address] Magnesium [Mass/Vol] 2.0 mg/dL Normal 1.6-2.3 [facility] Comment on above: Performed By: #### L AB62, LAB17, JTY232, HBR490 ####Obiee [employer] Solution Architect: MARY SOTELO ([id number])[facility])[address] [place] [address] MANUAL DIFFERENTIAL (CELLAVI ESPINOZA)on 07-27-2024 ANISOCYTOSIS PRESENCE IN BLOOD BY LIGHT MICROSCOPY Slight Abnormal (none) [facility] Comment on above: Performed By: #### L [id number], [id number] ####Ob[employer]e [employer] Architect: MARY SOTELO ([id number])[facility])[address] [place] [address] BAND NEUTROPHILS TOTAL PER COUNTED LEUKOCYTES BY MANUAL COUNT Normal [facility] Comment on above: Performed By: #### L [id number], [id number] ####Obiee [employer] Solution Architect: MARY SOTELO ([id number])[facility])[address] [place] [address] BASOPHILIC STIPPLING PRESENCE IN BLOOD BY LIGHT MICROSCOPY Rare Abnormal (none) [facility] Comment on above: Performed By: #### L [id number], [id number] ####Obiee [employer] Solution Architect: MARY SOTELO ([id number])[facility] ([facility])[address] [place] [address] [place] BASOPHILS TOTAL PER COUNTED LEUKOCYTES BY MANUAL COUNT Normal [facility] Comment on above: Performed By: #### L [id number], [id number] ####[employer] Architect: MARY SOTELO ([id number])[facility])[address] [place] [address] [place] BLASTS TOTAL PER COUNTED LEUKOCYTES BY MANUAL COUNT Normal [facility] Comment on above: Performed By: #### L [id number], [id number] ####[employer] Architect: MARY SOTELO ([id number])[facility])[address] [place] [address] EOSINOPHILS TOTAL PER COUNTED LEUKOCYTES BY MANUAL COUNT [facility] Comment on above: Performed By: #### L [id number], [id number] ####[employer] Architect: MARY SOTELO ([id number])[facility])[address] [place] [address] [place] LYMPHOCYTE VARIANT/100 LEUKOCYTES IN BLOOD- CELLAVISION 1 % High <=0 [facility] Comment on above: Performed By: #### L [id number], [id number] ####[employer] Architect: MARY SOTELO ([id number])[facility])[address] [place] [address] [place] LYMPHOCYTES (10*3/UL) IN BLOOD-CELLAVISION 0.7 10*3/uL Low 1.0-4.3 [facility] Comment on above: Performed By: #### L [id number], [id number] ####[employer] Architect: MARY SOTELO ([id number])[facility])[address] [place] [address] [place] LYMPHOCYTES TOTAL PER COUNTED LEUKOCYTES BY MANUAL COUNT 5 [facility] Comment on above: Performed By: #### L [id number], [id number] ####[employer] Architect: MARY SOTELO ([phone])[facility] ([facility])[address] [place] [address] [place] LYMPHOCYTES/100 LEUKOCYTES IN BLOOD-CELLAVISION 5 % Low 15-45 [facility] Comment on above: Performed By: #### L [id number], [id number] ####[employer] Architect: MARY SOTELO ([id number])[facility] ([facility])[address] [place] [address] [place] MACROCYTES (PRESENCE) IN BLOOD BY LIGHT MICROSCOPY Slight Abnormal (none) [facility] Comment on above: Performed By: #### L [id number], [id number] ####[employer] Architect: MARY SOTELO ([id number])[facility] ([facility])[address] [place] [address] METAMYELOCYTES TOTAL PER COUNTED LEUKOCYTES BY MANUAL COUNT Normal [facility] Comment on above: Performed By: #### L [id number], [id number] ####[employer] Architect: MARY SOTELO ([id number])[facility] ([facility])[address] [place] [address] MICROCYTES (PRESENCE) IN BLOOD BY LIGHT MICROSCOPY Slight Abnormal (none) [facility] Comment on above: Performed By: #### L [id number], [id number] ####[employer] Architect: MARY SOTELO ([id number])[facility] ([facility])[address] [place] [address] [place] MONOCYTES (10*3/UL) IN BLOOD-CELLAVISION 0.7 10*3/uL Normal 0.0-0.9 [facility] Comment on above: Performed By: #### L [id number], [id number] ####[employer]e [employer] Architect: MARY SOTELO ([id number])[facility] ([facility])[address] [place] [address] [place] MONOCYTES TOTAL PER COUNTED LEUKOCYTES BY MANUAL COUNT 5 Normal [facility] Comment on above: Performed By: #### L [id number], [id number] ####[employer]e [employer] Architect: MARY SOTELO ([id number])[facility] ([facility])[address] [place] [address] [place] MONOCYTES/100 LEUKOCYTES IN BLOOD-KACEY 5 % Normal 5-13 [facility] Comment on above: Performed By: #### L [id number], [id number] ####Ob[employer]e [employer] Architect: MARY SOTELO ([id number])[facility] ([facility])[address] [place] [address] [place] MYELOCYTES COUNTED BY MANUAL COUNT Normal [facility] Comment on above: Performed By: #### L [id number], [id number] ####Ob[employer]e [employer] Architect: MARY SOTELO ([id number])[facility] ([facility])[address] [place] [address] [place] NEUTROPHILS TOTAL PER COUNTED LEUKOCYTES BY MANUAL COUNT 90 Normal [facility] Comment on above: Performed By: #### L [id number], [id number] ####Ob[employer]e [employer] Architect: MARY SOTELO ([id number])[facility] ([facility])[address] [place] [address] [place] OVALOCYTES PRESENCE IN BLOOD BY LIGHT MICROSCOPY Slight Abnormal (none) [facility] Comment on above: Performed By: #### L [id number], [id number] ####Ob[employer]e [employer] Architect: MARY SOTELO ([id number])[facility] ([facility])[address] [place] [address] [place] POIKILOCYTOSIS (PRESENCE) IN BLOOD BY LIGHT MICROSCOPY Slight Abnormal (none) [facility] Comment on above: Performed By: #### L [id number], [id number] ####Ob[employer]e [employer] Architect: MARY SOTELO ([id number])[facility] ([facility])[address] [place] [address] [place] POLYCHROMASIA IN BLOOD BY LIGHT MICROSCOPY Slight Abnormal (none) [facility] Comment on above: Performed By: #### L [id number], [id number] ####Ob[employer]e [employer] Architect: MARY SOTELO ([id number])[facility] ([facility])[address] [place] [address] [place] PROMYELOCYTES TOTAL PER COUNTED LEUKOCYTES BY MANUAL COUNT Normal [facility] Comment on above: Performed By: #### L [id number], [id number] ####Ob[employer]e [employer] Architect: MARY SOTELO ([id number])[facility] ([facility])[address] [place] [address] [place] RBC MORPHOLOGY IN BLOOD abnormal Normal [facility] Comment on above: Performed By: #### L [id number], [id number] ####Obiee [employer] Architect: MARY SOTELO ([id number])[facility] ([facility])[address] [place] [address] [place] SEGMENTED NEUTROPHILS (10*3/UL) IN BLOOD-CELLAVISION 12.9 10*3/uL High 1.8-7.5 [facility] Comment on above: Performed By: #### L [id number], [id number] ####Ob[employer]e [employer] Architect: MARY SOTELO ([id number])[facility] ([facility])[address] [place] [address] [place] SEGMENTED NEUTROPHILS/100 LEUKOCYTES-CE 89 % High 38-82 [facility] Comment on above: Performed By: #### L [id number], [id number] ####Ob[employer]e [employer] Architect: MARY SOTELO ([id number])[facility] ([facility])[address] [place] [address] [place] UNCLASSIFIED CELLS TOTAL PER COUNTED LEUKOCYTES BY MANUAL COUNT Normal [facility] Comment on above: Performed By: #### L [id number], [id number] ####Obiee [employer] Solution Architect: MARY SOTELO ([id number])[facility] ([facility])[address] [place] [address] [place] VARIANT LYMPHOCYTES (10*3/UL) IN BLOOD-CELLAVISION 0.1 10*3/uL High <=0.0 [facility] Comment on above: Performed By: #### L [id number], [id number] ####Obiee [employer] Architect: MARY SOTELO ([id number])[facility])[address] [place] [address] [place] VARIANT LYMPHOCYTES TOTAL PER COUNTED LEUKOCYTES BY MANUAL COUNT 1 Normal [facility] Comment on above: Performed By: #### L [id number], [id number] ####Obiee [employer] Architect: MARY [id number])[facility] ([facility])[address] [place] [address] PHOSPHORUSon 07-27-2024 Phosphate [Mass/Vol] 6.8 mg/dL High 2.5-4.5 [facility] Comment on above: Performed By: #### L [id number], [id number], [id number], [id number] ####Ob[employer]e [employer] Architect: MARY SOTELO ([id number])[facility] ([facility])[address] [place] [address] PNEUMONIA PCR PANELon 2023 PNEUMONIA PCR PANEL Normal [facility] Comment on above: Performed By: #### L [id number] ####Ob[employer]e [employer] Architect: MARY SOTELO ([id number])[facility] ([facility])[address] [place] [address] Progress Noteon 07-27-2024 Progress Note Normal [facility] Progress Note Normal [facility] Progress Note OCCUPATIONAL THERAPY [facility] Name/MRN: Sandy Deng ([id number]) Date: 07/27/2024 Intubated, sedated, on bed rest. Will follow. Delmar Ling, OT Normal [facility] Progress Note PHYSICAL THERAPY [facility] Name/MRN: Sandy Deng ([id number]) Date: 07/27/2024 Screen Note. Pt remains intubated and sedated, and on strict bed rest orders. Will continue to follow and re-attempt as able. Jennifer Saldaña, SPT Normal [facility] Progress Note Normal [facility] Progress Note Normal [facility] Progress Note Normal [facility] RENAL FUNCTION PANELon 07-27 Albumin [Mass/Vol] 2.4 g/dL Low 3.5-5.0 [facility] Comment on above: Performed By: #### L [id number] ####Ob[employer]e [employer] Architect: MARY SOTELO ([id number])[facility] ([facility])[address] [place] [address] Anion gap [Moles/Vol] 4 mmol/L Normal 3-13 [facility] Comment on above: Performed By: #### L [id number] ####Ob[employer]e [employer] Architect: MARY SOTELO ([id number])[facility] ([facility])[address] [place] [address] Calcium [Mass/Vol] 7.5 mg/dL Low 8.4-10.4 [facility] Comment on above: Performed By: #### L [id number] ####Ob[employer] Architect: MARY SOTELO ([phone])[facility] ([facility])[address] [place] [address] [place] Chloride [Moles/Vol] 102 mmol/L Normal 98-107 [facility] Comment on above: Performed By: #### L [id number] ####Obiee [employer] Architect: MARY SOTELO ([id number])[facility] ([facility])[address] [place] [address] CO2 [Moles/Vol] 25 mmol/L Normal 22-30 [facility] Comment on above: Performed By: #### L [id number] ####Obiee [employer] Architect: MARY SOTELO ([id number])[facility] ([facility])[address] [place] [address] Creatinine [Mass/Vol] 2.81 mg/dL High 0.52-1.04 [facility] Comment on above: Performed By: #### L [id number] ####Ob[employer]e [employer] Architect: MARY SOTELO ([id number])[facility] ([facility])[address] [place] [address] [place] GLOMERULAR FILTRATION RATE ML/MIN/1.73 SQ M.PREDICTED 18.2 mL/min/1.73m*2 Low >60.0 [facility] Comment on above: Result Comment: Calc ulation based on the Chronic Kidney Disease Epidemiology Collaboration (CKD-EPI) equation refit without adjustment for race Performed By: #### L [id number] ####Ob[employer]e [employer] Architect: MARY SOTELO ([id number])[facility] ([facility])[address] [place] [address] [place] Glucose [Mass/Vol] 83 mg/dL Normal 70-100 [facility] Comment on above: Performed By: #### L [id number] ####Ob[employer]e [employer] Architect: MARY SOTELO ([id number])[facility] ([facility])[address] [place] [address] [place] Phosphate [Mass/Vol] 4.6 mg/dL High 2.5-4.5 [facility] Comment on above: Performed By: #### L [id number] ####Ob[employer]e [employer] Architect: MARY SOTELO ([id number])[facility] ([facility])[address] [place] [address] Potassium [Moles/Vol] 3.6 mmol/L Normal 3.5-5.1 [facility] Comment on above: Performed By: #### L [id number] ####Ob[employer]e [employer] Architect: MARY SOTELO ([id number])[facility] ([facility])[address] [place] [address] Sodium [Moles/Vol] 131 mmol/L Low 135-145 [facility] Comment on above: Performed By: #### L [id number] ####Ob[employer]e [employer] Architect: MARY SOTELO ([id number])[facility] ([facility])[address] [place] [address] Urea nitrogen [Mass/Vol] 49 mg/dL High 7-17 [facility] Comment on above: Performed By: #### L [id number] ####Ob[employer]e [employer] Architect: MARY SOTELO ([id number])[facility] ([facility])[address] [place] [address] [place] RESPIRATORY CULTURE AND STAI Non 07-27-2024 RESPIRATORY CULTURE AND STAIN Normal [facility] Comment on above: Performed By: #### L [id number] ####Ob[employer]e [employer] Architect: MARY SOTELO ([id number])[facility] ([facility])[address] [place] [address] [place] RESPIRATORY PATHOGENS PANEL BY PCRon 07-27-2024 RESPIRATORY PATHOGENS PANEL BY PCR Normal [facility] Comment on above: Performed By: #### L [id number] ####Ob[employer]e [employer] Architect: MARY SOTELO ([id number])[facility] ([facility])[address] [place] [address] [place] Renal Profileon 07-27-2024 ALB Normal 3.2-5.0 [facility] Comment on above: Result Comment: Canc elled via OM: Order cancelled - Patient discharged Performed By: #### L 500.3600 ####[facility] [address] [place], [address] BUN Normal 7-18 [facility] Comment on above: Result Comment: Canc elled via OM: Order cancelled - Patient discharged Performed By: #### L 500.3600 ####[facility] [address] [place], [address] BUN/CRE Normal 10-20 [facility] Comment on above: Result Comment: Canc elled via OM: Order cancelled - Patient discharged Performed By: #### L 500.3600 ####[facility] [address] [place], [address] CA,Total Normal 8.5-10.1 [facility] Comment on above: Result Comment: Canc elled via OM: Order cancelled - Patient discharged Performed By: #### L 500.3600 ####[facility] [address] [place], [address] CL Normal 98-107 [facility] Comment on above: Result Comment: Canc elled via OM: Order cancelled - Patient discharged Performed By: #### L 500.3600 ####[facility] [address] [place], [address] CO2 Normal 21.0-32.0 [facility] Comment on above: Result Comment: Canc elled via OM: Order cancelled - Patient discharged Performed By: #### L 500.3600 ####[facility] [address] [place], [address] CREAT,SERUM Normal 0.55-1.02 [facility] Comment on above: Result Comment: Canc elled via OM: Order cancelled - Patient discharged Performed By: #### L 500.3600 ####[facility] [address] [place], [address] EST GFR Normal >60 [facility] Comment on above: Result Comment: Canc elled via OM: Order cancelled - Patient discharged Performed By: #### L 500.3600 ####[facility] [address] [place], [address] EST GFR - AA Normal >60 [facility] Comment on above: Result Comment: Canc elled via OM: Order cancelled - Patient discharged Performed By: #### L 500.3600 ####[facility] [address] [place], [address] GLU Normal 74-106 [facility] Comment on above: Result Comment: Canc elled via OM: Order cancelled - Patient discharged Performed By: #### L 500.3600 ####[facility] [address] [place], [address] PHOS Normal 2.5-4.9 [facility] Comment on above: Result Comment: Canc elled via OM: Order cancelled - Patient discharged Performed By: #### L 500.3600 ####[facility] [address] [place], [address] Potassium Normal 3.5-5.1 [facility] Comment on above: Result Comment: Canc elled via OM: Order cancelled - Patient discharged Performed By: #### L 500.3600 ####[facility] [address] [place], [address] Renal Profile Normal 136-145 [facility] Comment on above: Result Comment: Canc elled via OM: Order cancelled - Patient discharged Performed By: #### L 500.3600 ####[facility] [address] [place], [address] TROPONIN Ion 07-27-2024 Troponin I.cardiac [Mass/Vol] 0.017 ng/mL Normal <0.034 [facility] Comment on above: Result Comment: ORDE R COMMENTS:Patients with high levels of Biotin oral intake (ie >5 mg/day) may have falsely decreased Troponin levels. Performed By: #### L [id number] ####[employer] Architect: MARY SOTELO ([id number])[facility] ([facility])[address] [place] [address] US RETROPERITONEUM LIMITEDon 07-27-2024 US RETROPERITONEUM LIMITED Normal [facility] Vitamin D 1,25-Dihydroxyon 0 07-27-2024 VIT D 1,25 DIHY 41.6 pg/mL Normal 24.8-81.5 [facility] Comment on above: Result Comment: Perf ormed at: - [facility] [id number] Director: Rico Lord MD, Phone: [phone] Performed By: #### L 506.1000, L100.0100, L500.4050, L509.1000, L3300.0960, L501.9985 ####[facility] [address] [place], [address] Abdomen Single View (Portabl e)on 07-26-2024 Abdomen Single View (Portable) Normal [facility] BLOOD GAS ARTERIALon 024 Base excess Calc (Bld) [Moles/Vol] -16.23889 mmol/L Low -3.0-3.0 [facility] Comment on above: Performed By: #### L [id number] ####[employer] Architect: MARY SOTELO ([id number])[facility])[address] [place] [address] CO2 [Moles/Vol] 11.7 mmol/L Low 23.0-27.0 [facility] Comment on above: Performed By: #### L AB76 ####[employer] Architect: MARY SOTELO ([id number])[facility] ([facility])[address] [place] [address] HCO3 (Bld) [Moles/Vol] 10.7 mmol/L Low 21.0-25.0 [facility] Comment on above: Performed By: #### L [id number] ####[employer] Architect: MARY SOTELO ([id number])[facility] ([facility])[address] [place] [address] Hemoglobin (Bld) [Mass/Vol] 8.1 g/dL Normal Screen only [facility] Comment on above: Performed By: #### L AB76 ####[employer] Architect: MARY SOTELO ([id number])[facility])[address] [place] [address] OXYGEN SATURATION (%) IN ARTERIAL BLOOD 94.9 % Low 95.0-100.0 [facility] Comment on above: Performed By: #### L AB76 ####[employer] Architect: MARY SOTELO ([id number])[facility])[address] [place] [address] PCO2 ARTERIAL 30.4 mm Hg Low >35.0-<45.0 [facility] Comment on above: Performed By: #### L AB76 ####[employer] Architect: MARY SOTELO ([id number])[facility] ([facility])[address] [place] [address] PH ARTERIAL 7.166 Critically low 7.350-7.450 [facility] Comment on above: Performed By: #### L AB76 ####[employer] Architect: MARY SOTELO ([phone])[facility] ([facility])[address] [place] [address] PO2 ARTERIAL 95.4 mm Hg Normal 80.0-100.0 [facility] Comment on above: Performed By: #### L AB76 ####[employer] Architect: MARY SOTELO ([id number])[facility])[address] [place] [address] SOURCE OF OXYGEN Vent Normal [facility] Comment on above: Performed By: #### L AB76 ####[employer] Architect: MARY SOTELO ([id number])[facility])[address] [place] [address] Bedside Glucoseon 07-26-2024 FINGERSTICK GLU 290 mg/dL High 74-106 [facility] Comment on above: Result Comment: SHELLY GEMENT OF PATIENT CARE PER NURSING PROTOCOL Performed By: #### L 501.080 ####[facility] [address] [place], [address] FINGERSTICK GLU 224 mg/dL High 74-106 [facility] Comment on above: Result Comment: SHELLY GEMENT OF PATIENT CARE PER NURSING PROTOCOL Performed By: #### L 501.080 ####[facility] [address] [place], [address] FINGERSTICK GLU 193 mg/dL High 74-106 [facility] Comment on above: Result Comment: SHELLY GEMENT OF PATIENT CARE PER NURSING PROTOCOL Performed By: #### L 501.080 ####[facility] [address] [place], [address] Blood Gases by [facility] 024 Base excess Calc (Bld) [Moles/Vol] -15 mmol/L Low -2 to +2 [facility] Comment on above: Performed By: #### L 9000.0800 ####[facility] [address] [place], [address] Blood Gas Type ART [facility] Comment on above: Performed By: #### L 9000.0800 ####[facility] [address] [place], [address] CO2 [Moles/Vol] 18 mmol/L Normal [facility] Comment on above: Performed By: #### L 9000.0800 ####[facility] [address] [place], [address] FI02 50.0 [facility] Comment on above: Performed By: #### L 9000.0800 ####[facility] [address] [place], [address] HCO3 (Bld) [Moles/Vol] 16.3 mmol/L Low 22-26 [facility] Comment on above: Performed By: #### L 9000.0800 ####[facility] [address] [place], [address] Mode AC Normal [facility] Comment on above: Performed By: #### L 9000.0800 ####[facility] [address] [place], [address] O2 Delivery Dev Not entered [facility] Comment on above: Performed By: #### L 9000.0800 ####[facility] [address] [place], [address] pCO2 64.6 mmHg High 35-45 [facility] Comment on above: Performed By: #### L 9000.0800 ####[facility] [address] [place], [address] PEEP 5 Normal [facility] Comment on above: Performed By: #### L 9000.0800 ####[facility] [address] [place], [address] pH (Bld) 7.01 [pH] Invalid Interpretation Code 7.35-7.45 [facility] Comment on above: Performed By: #### L 9000.0800 ####[facility] [address] [place], [address] PO2 127 mmHG High 75-100 [facility] Comment on above: Performed By: #### L 9000.0800 ####[facility] [address] [place], [address] Read Back By Yes [facility] Comment on above: Performed By: #### L 9000.0800 ####[facility] [address] [place], [address] Results To brown [facility] Comment on above: Performed By: #### L 9000.0800 ####[facility] [address] [place], [address] RR 16 Normal [facility] Comment on above: Performed By: #### L 8999.799 ####[facility] [address] [place], [address] SITE R Brach Normal [facility] Comment on above: Performed By: #### L 8999.08 ####[facility] [address] [place], [address] SO2 96 Normal 95-99 [facility] Comment on above: Performed By: #### L 8999.0800 ####[facility] [address] [place], [address] Time Given 12:36:55 Normal [facility] Comment on above: Performed By: #### L 8999.08 ####[facility] [address] [place], [address] Vt 400.0 mL Normal [facility] Comment on above: Performed By: #### L 8999.0800 ####[facility] [address] [place], [address] Base excess Calc (Bld) [Moles/Vol] -11 mmol/L Low -2 to +2 [facility] Comment on above: Performed By: #### L 8999.08 ####[facility] [address] [place], [address] Blood Gas Type ART Normal [facility] Comment on above: Performed By: #### L 8999.0800 ####[facility] [address] [place], [address] CO2 [Moles/Vol] 23 mmol/L Normal [facility] Comment on above: Performed By: #### L 8999.0800 ####[facility] [address] [place], [address] FI02 4.0 Normal [facility] Comment on above: Performed By: #### L 9000.0800 ####[facility] [address] [place], [address] HCO3 (Bld) [Moles/Vol] 20.1 mmol/L Low 22-26 [facility] Comment on above: Performed By: #### L 9000.0800 ####[facility] [address] [place], [address] Mode Not entered [facility] Comment on above: Performed By: #### L 9000.0800 ####[facility] [address] [place], [address] O2 Delivery Dev Not entered Normal [facility] Comment on above: Performed By: #### L 9000.0800 ####[facility] [address] [place], [address] pCO2 82.1 mmHg Invalid Interpretation Code 35-45 [facility] Comment on above: Performed By: #### L 9000.0800 ####[facility] [address] [place], [address] pH (Bld) 7.00 [pH] Invalid Interpretation Code 7.35-7.45 [facility] Comment on above: Performed By: #### L 9000.0800 ####[facility] [address] [place], [address] PO2 119 mmHG High 75-100 [facility] Comment on above: Performed By: #### L 9000.0800 ####[facility] [address] [place], [address] Read Back By Yes Normal [facility] Comment on above: Performed By: #### L 9000.0800 ####[facility] [address] [place], [address] Results To José Miguel Normal [facility] Comment on above: Performed By: #### L 9000.0800 ####[facility] [address] [place], [address] SITE L Radial Normal [facility] Comment on above: Performed By: #### L 9000.0800 ####[facility] [address] [place], [address] SO2 95 Normal 95-99 [facility] Comment on above: Performed By: #### L 9000.0800 ####[facility] [address] [place], [address] Time Given 09:09:17 Normal [facility] Comment on above: Performed By: #### L 9000.0800 ####[facility] [address] [place], [place], [id number] Brain/Head without Contrasto n 07-26-2024 Brain/Head without Contrast Normal [facility] Brain/Head without Contrast Normal [facility] [facility] CALCIUM, IONIZEDon CALCIUM IONIZED 2.80 mg/dL Low 4.30-5.20 [facility] Comment on above: Performed By: #### L AB54 ####Obiee [employer] Solution Architect: MARY SOTELO ([id number])[address] PH, IONIZED CALCIUM 7.29 Low 7.31-7.46 [facility] Comment on above: Performed By: #### L AB54 ####Obiee Obia Solution Architect: MARY SOTELO ([id number])[address] CBC WITH AUTO DIFFERENTIALon 07-26-2024 Basophils (Bld) [#/Vol] 0.0 10*3/uL Normal 0.0-0.2 [facility] Comment on above: Performed By: #### L [id number] ####Obiee Obia Solution Architect: MARY SOTELO ([id number])[facility])[address] [place] [address] Basophils/100 WBC (Bld) 0.1 % Normal 0.0-2.0 [facility] Comment on above: Performed By: #### L [id number] ####Obiee [employer]ia Solution Architect: MARY SOTELO ([id number])[facility])[address] [place] [address] Eosinophils (Bld) [#/Vol] 0.0 10*3/uL Normal 0.0-0.5 [facility] Comment on above: Performed By: #### L [id number] ####Obiee Obia Solution Architect: MARY SOTELO ([id number])[address] Eosinophils/100 WBC (Bld) 0.1 % Normal 0.0-6.0 [facility] Comment on above: Performed By: #### L [id number] ####Obiee Obia Solution Architect: MARY SOTELO ([id number])[facility])[address] [place] [address] Erythrocyte distribution width (RBC) [Ratio] 15.5 % High 11.5-15.0 [facility] Comment on above: Performed By: #### L [id number] ####Obiee Obia Solution Architect: MARY SOTELO ([id number])[address] Hematocrit (Bld) [Volume fraction] 31.3 % Low 35.0-47.0 [facility] Comment on above: Performed By: #### L [id number] ####Obiee Obia Solution Architect: MARY SOTELO ([id number])[facility])[address] [place] [address] Hemoglobin (Bld) [Mass/Vol] 10.1 g/dL Low 11.7-16.0 [facility] Comment on above: Performed By: #### L [id number] ####Obiee Obia Solution Architect: MARY SOTELO ([id number])[facility] [address] IMMATURE GRANS % 0.6 % Normal 0.0-2.0 [facility] Comment on above: Performed By: #### L [id number] ####Obiee Obia Solution Architect: MARY SOTELO ([id number])[facility])[address] [place] [address] IMMATURE GRANS ABSOLUTE 0.1 10*3/uL High <0.1 [facility] Comment on above: Performed By: #### L [id number] ####Obiee Obia Solution Architect: MARY SOTELO ([id number])[facility])[address] [place] [address] Lymphocytes (Bld) [#/Vol] 1.2 10*3/uL Normal 1.0-4.3 [facility] Comment on above: Performed By: #### L [id number] ####Obiee Obia Solution Architect: MARY SOTELO ([id number])[facility])[address] [place] [address] Lymphocytes/100 WBC (Bld) 6.2 % Low 15.0-45.0 [facility] Comment on above: Performed By: #### L [id number] ####Obiee [employer] Solution Architect: MARY SOTELO ([id number])[facility])[address] [place] [address] MCH (RBC) [Entitic mass] 28.6 pg Normal 26.0-34.0 [facility] Comment on above: Performed By: #### L [id number] ####Obiee Obia Solution Architect: MARY SOTELO ([id number])[facility])[address] [place] [address] MCHC 32.3 % Normal 30.5-36.0 [facility] Comment on above: Performed By: #### L [id number] ####Obiee Obia Solution Architect: MARY SOTELO ([id number])[facility])[address] [place] [address] MCV (RBC) [Entitic vol] 88.7 fL Normal 77.0-99.0 [facility] Comment on above: Performed By: #### L [id number] ####Obiee Obia Solution Architect: MARY SOTELO ([id number])[facility])[address] [place] [address] Monocytes (Bld) [#/Vol] 1.4 10*3/uL High 0.0-0.9 [facility] Comment on above: Performed By: #### L [id number] ####Obiee Obia Solution Architect: MARY SOTELO ([id number])[facility])[address] [place] [address] Monocytes/100 WBC (Bld) 7.2 % Normal 5.0-13.0 [facility] Comment on above: Performed By: #### L [id number] ####Obiee Obia Solution Architect: MARY SOTELO ([id number])[facility])[address] [place] [address] NEUTROPHILS ABSOLUTE 16.1 10*3/uL High 1.8-7.5 [facility] Comment on above: Performed By: #### L [id number] ####Obiee Obia Solution Architect: MARY SOTELO ([id number])[facility])[address] [place] [address] Neutrophils/100 WBC (Bld) 85.8 % High 38.0-82.0 [facility] Comment on above: Performed By: #### L [id number] ####Obiee Obia Solution Architect: MARY SOTELO ([id number])[facility])[address] [place] [address] [place] NRBC 1.1 /100 WBCs Normal 0.0-2.0 [facility] Comment on above: Performed By: #### L [id number] ####Obiee Obia Solution Architect: MARY SOTELO ([id number])[facility])[address] [place] [address] Platelet mean volume (Bld) [Entitic vol] 11.0 fL Normal 9.0-12.7 [facility] Comment on above: Performed By: #### L [id number] ####Obiee Obia Solution Architect: MARY SOTELO ([id number])[facility])[address] [place] [address] Platelets (Bld) [#/Vol] 244 10*3/uL Normal 140-440 [facility] Comment on above: Performed By: #### L [id number] ####Obiee Obia Solution Architect: MARY SOTELO ([id number])[facility])[address] [place] [address] RBC (Bld) [#/Vol] 3.53 10*6/uL Low 3.80-5.20 [facility] Comment on above: Performed By: #### L [id number] ####Obiee Obia Solution Architect: MARY SOTELO ([id number])[facility])[address] [place] [address] WBC (Bld) [#/Vol] 18.7 10*3/uL High 3.6-10.7 [facility] Comment on above: Performed By: #### L [id number] ####Obiee Obia Solution Architect: MARY SOTELO ([id number])[facility])[address] [place] [address] CBC-Complete Blood Cnt No Di ffon 07-26-2024 Erythrocyte distribution width (RBC) [Ratio] 15.0 % High 11.6-14.6 [facility] Comment on above: Performed By: #### L 100.0500, L500.3600 ####[facility] [address] [facility] [address] Hematocrit (Bld) [Volume fraction] 22.7 % Low 37-47 [facility] Comment on above: Performed By: #### L 100.0500, L500.3600 ####[facility] [address] [place], [address] Hemoglobin (Bld) [Mass/Vol] 6.9 g/dL Low 12.0-15.0 [facility] Comment on above: Performed By: #### L 100.0500, L500.3600 ####[facility] [address] [place], [address] MCH (RBC) [Entitic mass] 28.9 pg Normal 27.0-32.0 [facility] Comment on above: Performed By: #### L 100.0500, L500.3600 ####[facility] [address] [place], [address] MCHC (RBC) [Mass/Vol] 30.4 g/dL Low 32-36 [facility] Comment on above: Performed By: #### L 100.0500, L500.3600 ####[facility] [address] [place], [address] MCV (RBC) [Entitic vol] 95.0 fL Normal 81-99 [facility] Comment on above: Performed By: #### L 100.0500, L500.3600 ####[facility] [address] [place], [address] Platelet mean volume (Bld) [Entitic vol] 10.8 fL Normal 6.2-12.0 [facility] Comment on above: Performed By: #### L 100.0500, L500.3600 ####[facility] [address] [place], [address] Platelets (Bld) [#/Vol] 164 10*3/uL Normal 150-450 [facility] Comment on above: Performed By: #### L 100.0500, L500.3600 ####[facility] [address] [place], [address] RBC (Bld) [#/Vol] 2.39 10*6/uL Low 4.2-5.4 [facility] Comment on above: Performed By: #### L 100.0500, L500.3600 ####[facility] [address] [place], [address] RDW SD 52.6 fl High 35.1-43.9 [facility] Comment on above: Performed By: #### L 100.0500, L500.3600 ####[facility] [address] [place], [address] WBC (Bld) [#/Vol] 8.3 10*3/uL Normal 4.4-11.0 [facility] Comment on above: Performed By: #### L 100.0500, L500.3600 ####[facility] [address] [place], [address] COMPREHENSIVE METABOLIC PANE [place] 07-26-2024 Albumin [Mass/Vol] 2.9 g/dL Low 3.5-5.0 [facility] Comment on above: Performed By: #### L AB17, PUI219, OMC766, [id number], MXJ288 ####Obiee Ob[employer] Solution Architect: MARY SOTELO ([id number])[facility])[address] [place] [address] ALP [Catalytic activity/Vol] 68 U/L Normal 38-126 [facility] Comment on above: Performed By: #### L AB17, OFO767, CSN432, [id number], KMW909 ####Obiee Obia Solution Architect: MARY SOTELO ([id number])[facility])[address] [place] [address] ALT [Catalytic activity/Vol] 21 U/L Normal 0-34 [facility] Comment on above: Performed By: #### L AB17, USC454, DVM210, [id number], RZW304 ####Obiee Ob[employer] Solution Architect: MARY SOTELO ([id number])[facility])[address] [place] [address] Anion gap [Moles/Vol] 10 mmol/L Normal 3-13 [facility] Comment on above: Performed By: #### L AB17, EWE913, NNA920, [id number], TUI367 ####Obiee Obia Solution Architect: MARY SOTELO ([id number])[facility])[address] [place] [address] AST [Catalytic activity/Vol] 40 U/L Normal 15-46 [facility] Comment on above: Performed By: #### L AB17, MIY125, YDN645, [id number], FPZ494 ####Obiee Obia Solution Architect: MARY SOTELO ([id number])[facility] [place] [address] Bilirubin [Mass/Vol] 0.5 mg/dL Normal 0.2-1.3 [facility] Comment on above: Performed By: #### L AB17, JOC584, MTC860, [id number], QJN944 ####Obiee Obia Solution Architect: MARY SOTELO ([id number])[facility] [place] [address] Calcium [Mass/Vol] 5.5 mg/dL Critically low 8.4-10.4 [facility] Comment on above: Performed By: #### L AB17, BRU332, DBZ679, [id number], YXJ181 ####Obiee Obia Solution Architect: MARY SOTELO ([id number])[facility] [place] [address] [place] Chloride [Moles/Vol] 98 mmol/L Normal 98-107 [facility] Comment on above: Performed By: #### L AB17, LVX717, CTU259, [id number], CCX636 ####Obiee Obia Solution Architect: MARY SOTELO ([id number])[facility] [place] [address] [place] CO2 [Moles/Vol] 17 mmol/L Low 22-30 [facility] Comment on above: Performed By: #### L AB17, EOE479, YKT916, [id number], CSV781 ####Obiee Obia Solution Architect: MARY SOTELO ([id number])[facility] [place] [address] [place] Creatinine [Mass/Vol] 4.56 mg/dL High 0.52-1.04 [facility] Comment on above: Performed By: #### L AB17, NYC952, YIO578, [id number], DAT406 ####Obiee Obia Solution Architect: MARY SOTELO ([id number])[facility])[address] [place] [address] GLOMERULAR FILTRATION RATE ML/MIN/1.73 SQ M.PREDICTED 10.2 mL/min/1.73m*2 Low >60.0 [facility] Comment on above: Result Comment: Calc ulation based on the Chronic Kidney Disease Epidemiology Collaboration (CKD-EPI) equation refit without adjustment for race Performed By: #### L AB17, DJO325, BBO884, [id number], IVD679 ####Obiee Obia Solution Architect: MARY SOTELO ([id number])[facility])[address] [place] [address] Glucose [Mass/Vol] 252 mg/dL High 70-100 [facility] Comment on above: Performed By: #### L AB17, DJF938, GGC540, [id number], BZY431 ####Obiee Obia Solution Architect: MARY SOTELO ([id number])[facility])[address] [place] [address] Potassium [Moles/Vol] 5.5 mmol/L High 3.5-5.1 [facility] Comment on above: Performed By: #### L AB17, HNE893, IAS447, [id number], CCJ582 ####Obiee [employer] Solution Architect: MARY SOTELO ([id number])[address] Protein [Mass/Vol] 5.5 g/dL Low 6.3-8.2 [facility] Comment on above: Performed By: #### L AB17, MPL951, EXN625, [id number], JSF580 ####Obiee Obia Solution Architect: MARY SOTELO ([id number])[facility])[address] [place] [address] [place] Sodium [Moles/Vol] 125 mmol/L Low 135-145 [facility] Comment on above: Performed By: #### L AB17, VJJ057, AFE994, [id number], DTY775 ####Obiee Obia Solution Architect: MARY SOTELO ([id number])[facility])[address] [place] [address] [place] Urea nitrogen [Mass/Vol] 76 mg/dL High 7-17 [facility] Comment on above: Performed By: #### L AB17, SAA031, WZR588, [id number], DVU718 ####Obiee Ob[employer] Solution Architect: MARY SOTELO ([id number])[facility])[address] [place] [address] CPK Total, Creatine Kinaseon 07-26-2024 CPK TOTAL 1209 U/L High 26-192 [facility] Comment on above: Order Comment: Comme nts: DC when propofol is d/c'dDC when propofol is d/c'd Performed By: #### L 501.3620, L501.5000 ####[facility] [address] [place], [place], [address] CREATININE, URINE, RANDOMon 07-26-2024 CREATININE, URINE 96.9 mg/dL Normal No Range [facility] Comment on above: Performed By: #### L AB444, JTK683, UTS981 ####Obiee [employer] Solution Architect: MARY SOTELO ([id number])[facility])[address] [place] [address] CT CERVICAL SPINE WO IV CONT RASTon 07-26-2024 CT CERVICAL SPINE WO IV CONTRAST Normal [facility] CT HEAD WO IV CONTRASTon CT HEAD WO IV CONTRAST Normal [facility] CXR for Line Placementon CXR for Line Placement Normal [facility] Chest 1 View (Portable)on Chest 1 View (Portable) Normal [facility] Consulton 07-26-2024 Consult Normal [facility] Consultation - Intensiviston 07-26-2024 Consultation - Certified Real Estate Appraiser Normal [facility] HEMOGLOBIN A1Con 07-26-2024 Glucose [Mass/Vol] 131 mg/dL Normal [facility] Comment on above: Order Comment: If no t done within the last 3 mos Performed By: #### L AB90 ####Obiee Ob[employer] Solution Architect: MARY SOTELO ([id number])[facility])[address] [place] [address] HbA1c (Bld) [Mass fraction] 6.2 % High <5.7 [facility] Comment on above: Order Comment: If no t done within the last 3 mos Result Comment: Norm al less than 5.7%Prediabetes 5.7% to 6.4%Diabetes 6.5% or higher--HgbA1C levels may not be accurate in patients who have renal disease, received recent blood transfusions, are anemic, or who have dyshemoglobinemia. Performed By: #### L AB90 ####Obiee [employer] Solution Architect: MARY SOTELO ([id number])[facility])[address] [place] [address] LACTIC ACID WITH REFLEXon Lactate [Moles/Vol] 0.9 mmol/L Normal 0.7-2.0 [facility] Comment on above: Performed By: #### L [id number] ####Obiee [employer] Solution Architect: MARY SOTELO ([id number])[facility])[address] [place] [address] LEGIONELLA AND STREPTOCOCCUS URINE ANTIGENon 07-26-2024 LEGIONELLA AND STREPTOCOCCUS URINE ANTIGEN Normal [facility] Comment on above: Performed By: #### L [id number] ####Obiee [employer] Solution Architect: MARY SOTELO ([id number])[facility])[address] [place] [address] MAGNESIUMon 07-26-2024 Magnesium [Mass/Vol] 1.5 mg/dL Low 1.6-2.3 [facility] Comment on above: Performed By: #### L AB17, ROC038, YCL485, [id number], YSQ986 ####Ob[employer] Solution Architect: MARY SOTELO ([id number])[facility])[address] [place] [address] MR/CON.PCM.NEon 07-26-2024 MR/CON.PCM.NE Normal [facility] OSMOLALITY, SERUMon 07-26-20 24 OSMOLALITY, SERUM 309 mOsm/kg High 280-300 [facility] Comment on above: Performed By: #### L AB107 ####Obiee [employer] Solution Architect: MARY SOTELO ([id number])[facility])[address] [place] [address] OSMOLALITY, URINEon 07-26-20 24 OSMOLALITY, URINE 316 mOsm/kg Normal 300-1000 [facility] Comment on above: Performed By: #### L AB444, WDN480, PUX988 ####Ob[employer] Solution Architect: MARY SOTELO ([id number])[facility])[address] [place] [address] [place] PHOSPHORUSon 07-26-2024 Phosphate [Mass/Vol] 8.5 mg/dL High 2.5-4.5 [facility] Comment on above: Performed By: #### L AB17, DTQ077, CVE203, [id number], QGS723 ####Ob[employer] Solution Architect: MARY SOTELO ([id number])[facility])[address] [place] [address] PROCALCITONIN TESTon 024 PROCALCITONIN 2.48 ng/mL High 0.00-0.09 [facility] Comment on above: Result Comment: BINA Olivarez COMMENTS:PCT <0.50 = Low risk of severe sepsis and/or septic shock.PCT >2.00 = High risk of severe sepsis and/or septic shock. Performed By: #### L [id number] ####Ob[employer] Solution Architect: MARY SOTELO ([id number])[facility])[address] [place] [address] Partial Thromboplast Timeon 07-26-2024 aPTT Coag (Bld) [Time] 33.7 s Normal 24.1-36.2 [facility] Comment on above: Performed By: #### L 300.4310, L300.3900 ####[facility] [address] [place], [address] Procedure Reporton Procedure Report Normal [facility] Procedure Report Normal [facility] Prothrombin Time w/INRon INR Coag (PPP) [Relative time] 1.3 {INR} Normal [facility] Comment on above: Performed By: #### L 300.4310, L300.3900 ####[facility] [address] [place], [address] PT Coag (PPP) [Time] 15.7 s High 11.7-14.9 [facility] Comment on above: Performed By: #### L 300.4310, L300.3900 ####[facility] [address] [place], [address] Renal Profileon 07-26-2024 Albumin [Mass/Vol] 2.4 g/dL Low 3.2-5.0 [facility] Comment on above: Performed By: #### L 100.0500, L500.3600 ####[facility] [address] [place], [address] BUN/CRE 15.4 RATIO Normal 10-20 [facility] Comment on above: Performed By: #### L 100.0500, L500.3600 ####[facility] [address] [place], [address] CA,Total 5.5 mg/dL Invalid Interpretation Code 8.5-10.1 [facility] Comment on above: Result Comment: Crit ical Result(s) Called at: 03:18:33 07/26/2024 by:Ana Rosa Andrew to [employer]. Results read back by same. Performed By: #### L 100.0500, L500.3600 ####[facility] [address] [place], [address] Chloride [Moles/Vol] 100 mmol/L Normal 98-107 [facility] Comment on above: Performed By: #### L 100.0500, L500.3600 ####[facility] [address] [place], [address] CO2 [Moles/Vol] 20.0 mmol/L Low 21.0-32.0 [facility] Comment on above: Performed By: #### L 100.0500, L500.3600 ####[facility] [address] [place], [address] Creatinine [Mass/Vol] 3.84 mg/dL High 0.55-1.02 [facility] Comment on above: Result Comment: The validity of the calculated GFR GFRAA in patients over70 years has not been determined. Clinical correlation isessential. Performed By: #### L 100.0500, L500.3600 ####[facility] [address] [place], [address] ECRCL 11.26 ml/min Normal [facility] Comment on above: Performed By: #### L 100.0500, L500.3600 ####[facility] [address] [place], [address] EST GFR - AA 15 mL/min Low >60 [facility] Comment on above: Result Comment: Afri can Turkish GFR Calc Performed By: #### L 100.0500, L500.3600 ####[facility] [address] [place], [address] GFR/1.73 sq M.predicted among non-blacks MDRD (S/P/Bld) [Vol rate/Area] 13 mL/min/{1.73_m2} Low >60 [facility] Comment on above: Result Comment: Non- GFR Calc Performed By: #### L 100.0500, L500.3600 ####[facility] [address] [place], [address] Glucose [Mass/Vol] 167 mg/dL High 74-106 [facility] Comment on above: Result Comment: Fast ing Glucose result greater than or equal to 126 mg/dLsuggests DIABETES MELLITUS per A.D.A. criteria. Performed By: #### L 100.0500, L500.3600 ####[facility] [address] [place], [address] Phosphate [Mass/Vol] 7.0 mg/dL High 2.5-4.9 [facility] Comment on above: Performed By: #### L 100.0500, L500.3600 ####[facility] [address] [place], [address] Potassium [Moles/Vol] 5.6 mmol/L High 3.5-5.1 [facility] Comment on above: Performed By: #### L 100.0500, L500.3600 ####[facility] [address] [place], [address] Sodium [Moles/Vol] 131 mmol/L Low 136-145 [facility] Comment on above: Performed By: #### L 100.0500, L500.3600 ####[facility] [address] [place], [address] Urea nitrogen [Mass/Vol] 59 mg/dL High 7-18 [facility] Comment on above: Performed By: #### L 100.0500, L500.3600 ####[facility] [address] [place], [address] SODIUM, URINE, RANDOMon - Sodium (U) [Moles/Vol] 31 mmol/L Normal 30-90 [facility] Comment on above: Performed By: #### L AB444, ISU128, YQM724 ####[employer] Architect: MARY SOTELO ([id number])[facility] ([facility] THYROID STIMULATING HORMONEo n 07-26-2024 THYROID STIMULATING HORMONE 3.472 uIU/mL Normal 0.465-4.680 [facility] Comment on above: Performed By: #### L AB17, TDB004, UCF769, [id number], LIT722 ####[employer] Architect: MARY SOTELO ([id number])[facility] ([facility])[address] [place] [address] [place] TROPONIN Ion 07-26-2024 Troponin I.cardiac [Mass/Vol] 0.014 ng/mL Normal <0.034 [facility] Comment on above: Result Comment: BINA Olivarez COMMENTS:Patients with high levels of Biotin oral intake (ie >5 mg/day) may have falsely decreased Troponin levels. Performed By: #### L AB747 ####[employer] Architect: MARY SOTELO ([id number])[facility] ([facility])[address] [place] [address] [place] TROPONIN, WITH SERIAL REFLEX on 07-26-2024 Troponin I.cardiac [Mass/Vol] 0.013 ng/mL Normal <0.034 [facility] Comment on above: Result Comment: BINA Olivarez COMMENTS:Patients with high levels of Biotin oral intake (ie >5 mg/day) may have falsely decreased Troponin levels. Performed By: #### L AB17, [id number], [id number], [id number], [id number] ####[employer] Architect: MARY SOTELO ([id number])[facility] ([facility])[address] [place] [address] Triglycerideson 07-26-2024 Triglyceride [Mass/Vol] 103 mg/dL Normal [facility] Comment on above: Order Comment: Comme nts: DC when propofol is d/c'dDC when propofol is d/c'd Result Comment: The drugs N-Acetylcysteine and Metamizole may falselydepress this assay.Serum Triglycerides Reference Interval Normal <150 mg/dL Borderline high 150 - 199 mg/dL High 200 - 499 mg/dL Very High > or = 500 mg/dL Performed By: #### L 501.3620, L501.5000 ####[facility] [id number] [place], [place], [id number] XR ABDOMEN 1 VIEWon 07-26-20 24 XR ABDOMEN 1 VIEW Normal [facility] XR CHEST 1 VIEWon 07-26-2024 XR CHEST 1 VIEW Normal [facility] Basic Metabolic Profile (BMP )on 07-25-2024 BUN/CRE 13.8 RATIO Normal 10-20 [facility] Comment on above: Performed By: #### L 500.2500 ####[facility] [id number] [place], [address] [place],Total 5.7 mg/dL Invalid Interpretation Code 8.5-10.1 [facility] Comment on above: Result Comment: Crit ical Result(s) Called at: 07:31:06 07/25/2024 by: Hannah Velazquez RN (U). Results read back by same. Performed By: #### L 500.2500 ####[facility] [address] [place], [address] Chloride [Moles/Vol] 97 mmol/L Low 98-107 [facility] Comment on above: Performed By: #### L 500.2500 ####[facility] [address] [place], [address] CO2 [Moles/Vol] 23.0 mmol/L Normal 21.0-32.0 [facility] Comment on above: Performed By: #### L 500.2500 ####[facility] [address] [place], [address] Creatinine [Mass/Vol] 3.77 mg/dL High 0.55-1.02 [facility] Comment on above: Result Comment: The validity of the calculated GFR GFRAA in patients over70 years has not been determined. Clinical correlation isessential. Performed By: #### L 500.2500 ####[facility] [address] [place], [address] ECRCL 11.47 ml/min Normal [facility] Comment on above: Performed By: #### L 500.2500 ####[facility] [address] [place], [address] EST GFR - AA 16 mL/min Low >60 [facility] Comment on above: Result Comment: Afri can Turkish GFR Calc Performed By: #### L 500.2500 ####[facility] [address] [place], [address] GAP 10 Normal 5-15 [facility] Comment on above: Performed By: #### L 500.2500 ####[facility] [address] [place], [address] GFR/1.73 sq M.predicted among non-blacks MDRD (S/P/Bld) [Vol rate/Area] 13 mL/min/{1.73_m2} Low >60 [facility] Comment on above: Result Comment: Non- GFR Calc Performed By: #### L 500.2500 ####[facility] [address] [place], [address] Glucose [Mass/Vol] 275 mg/dL High 74-106 [facility] Comment on above: Result Comment: Gluc ose result greater than or equal to 200 mg/dLsuggests DIABETES MELLITUS per A.D.A. criteria. Performed By: #### L 500.2500 ####[facility] [address] [place], [address] Potassium [Moles/Vol] 5.1 mmol/L Normal 3.5-5.1 [facility] Comment on above: Performed By: #### L 500.2500 ####[facility] [address] [place], [address] Sodium [Moles/Vol] 130 mmol/L Low 136-145 [facility] Comment on above: Performed By: #### L 500.2500 ####[facility] [address] [place], [address] Urea nitrogen [Mass/Vol] 52 mg/dL High 7-18 [facility] Comment on above: Performed By: #### L 500.2500 ####[facility] [address] [place], [address] Bedside Glucoseon 07-25-2024 FINGERSTICK GLU 249 mg/dL High 74-106 [facility] Comment on above: Result Comment: SHELLY GEMENT OF PATIENT CARE PER NURSING PROTOCOL Performed By: #### L 501.080 ####[facility] [address] [place], [address] FINGERSTICK GLU 140 mg/dL High 74-106 [facility] Comment on above: Result Comment: SHELLY GEMENT OF PATIENT CARE PER NURSING PROTOCOL Performed By: #### L 501.080 ####[facility] [address] [place], [address] FINGERSTICK GLU 270 mg/dL High 74-106 [facility] Comment on above: Result Comment: SHELLY GEMENT OF PATIENT CARE PER NURSING PROTOCOL Performed By: #### L 501.080 ####[facility] [address] [place], [address] CBC W/Diff, Automatedon 07-05 Absolute Lymph 1.26 X10 3/uL Normal 0.83-4.51 [facility] Comment on above: Performed By: #### L 100.0100 ####[facility] [address] [place], [address] Absolute Neut 7.1 X10 3/uL Normal 2.0-7.7 [facility] Comment on above: Performed By: #### L 100.0100 ####[facility] [address] [place], [address] Basophils/100 WBC (Bld) 0.2 % Normal 0-1 [facility] Comment on above: Performed By: #### L 100.0100 ####[facility] [address] [place], [address] Eosinophils/100 WBC (Bld) 0.6 % Normal 0-5 [facility] Comment on above: Performed By: #### L 100.0100 ####[facility] [address] [place], [address] Erythrocyte distribution width (RBC) [Ratio] 15.1 % High 11.6-14.6 [facility] Comment on above: Performed By: #### L 100.0100 ####[facility] [address] [place], [address] Hematocrit (Bld) [Volume fraction] 26.8 % Low 37-47 [facility] Comment on above: Performed By: #### L 100.0100 ####[facility] [address] [place], [address] Hemoglobin (Bld) [Mass/Vol] 8.0 g/dL Low 12.0-15.0 [facility] Comment on above: Performed By: #### L 100.0100 ####[facility] [address] [place], [address] IG% 0.800 Normal 0.0-0.9 [facility] Comment on above: Result Comment: IG% - Immature Granulocytes (promyelocytes, myelocytes andmetamyelocytes) > 1% indicates that a LEFT SHIFT is Present. Performed By: #### L 100.0100 ####[facility] [address] [place], [address] Lymphocytes/100 WBC (Bld) 13.5 % Low 19-41 [facility] Comment on above: Performed By: #### L 100.0100 ####[facility] [address] [place], [address] MCH (RBC) [Entitic mass] 28.5 pg Normal 27.0-32.0 [facility] Comment on above: Performed By: #### L 100.0100 ####[facility] [address] [place], [address] MCHC (RBC) [Mass/Vol] 29.9 g/dL Low 32-36 [facility] Comment on above: Performed By: #### L 100.0100 ####[facility] [address] [place], [address] MCV (RBC) [Entitic vol] 95.4 fL Normal 81-99 [facility] Comment on above: Performed By: #### L 100.0100 ####[facility] [address] [place], [address] Monocytes/100 WBC (Bld) 9.1 % Normal 0-10 [facility] Comment on above: Performed By: #### L 100.0100 ####[facility] [address] [place], [address] Neutrophils/100 WBC (Bld) 75.8 % High 47-70 [facility] Comment on above: Performed By: #### L 100.0100 ####[facility] [address] [place], [address] Nucleated RBC (Bld) [#/Vol] 0.3 10*3/uL Normal 0-5 [facility] Comment on above: Performed By: #### L 100.0100 ####[facility] [address] [place], [address] Platelet mean volume (Bld) [Entitic vol] 11.0 fL Normal 6.2-12.0 [facility] Comment on above: Performed By: #### L 100.0100 ####[facility] [address] [place], [address] Platelets (Bld) [#/Vol] 204 10*3/uL Normal 150-450 [facility] Comment on above: Performed By: #### L 100.0100 ####[facility] [address] [place], [address] RBC (Bld) [#/Vol] 2.81 10*6/uL Low 4.2-5.4 [facility] Comment on above: Performed By: #### L 100.0100 ####[facility] [address] [place], [address] RDW SD 53.3 fl High 35.1-43.9 [facility] Comment on above: Performed By: #### L 100.0100 ####[facility] [address] [place], [address] WBC (Bld) [#/Vol] 9.3 10*3/uL Normal 4.4-11.0 [facility] Comment on above: Performed By: #### L 100.0100 ####[facility] [address] [place], [address] HH, Hemoglobin AND Hematocri ton 07-25-2024 Hematocrit (Bld) [Volume fraction] 28.5 % Low 37-47 [facility] Comment on above: Performed By: #### L 100.0600 ####[facility] [address] [place], [address] Hemoglobin (Bld) [Mass/Vol] 8.7 g/dL Low 12.0-15.0 [facility] Comment on above: Performed By: #### L 100.0600 ####[facility] [address] [place], [address] 12 Lead EKGon 07-24-2024 12 Lead EKG Normal [facility] BNP,B-Type NATRIURETIC PEPTI Rinku 07-24-2024 Natriuretic peptide B (Bld) [Mass/Vol] 2478.5 pg/mL High 0-100 [facility] Comment on above: Performed By: #### L 509.7000, L101.9900, L501.5200, L503.6550, L501.6710, L503.6030, L501.2300, L501.3620, L504.2610, L503.6620, L300.8000 ####[facility] [address] [place], [address] Basic Metabolic Profile (BMP )on 07-24-2024 BUN Normal 7-18 [facility] Comment on above: Result Comment: Canc elled via OM: Order edited - Discontinuing original order Performed By: #### L 500.2500 ####[facility] [address] [place], [address] BUN/CRE Normal 10-20 [facility] Comment on above: Result Comment: Canc elled via OM: Order edited - Discontinuing original order Performed By: #### L 500.2500 ####[facility] [address] [place], [address] CA,Total Normal 8.5-10.1 [facility] Comment on above: Result Comment: Canc elled via OM: Order edited - Discontinuing original order Performed By: #### L 500.2500 ####[facility] [address] [place], [address] CL Normal 98-107 [facility] Comment on above: Result Comment: Canc elled via OM: Order edited - Discontinuing original order Performed By: #### L 500.2500 ####[facility] [address] [place], [address] CO2 Normal 21.0-32.0 [facility] Comment on above: Result Comment: Canc elled via OM: Order edited - Discontinuing original order Performed By: #### L 500.2500 ####[facility] [address] [place], [address] CREAT,SERUM Normal 0.55-1.02 [facility] Comment on above: Result Comment: Canc elled via OM: Order edited - Discontinuing original order Performed By: #### L 500.2500 ####[facility] [address] [place], [address] EST GFR Normal >60 [facility] Comment on above: Result Comment: Canc elled via OM: Order edited - Discontinuing original order Performed By: #### L 500.2500 ####[facility] [address] [place], [address] EST GFR - AA Normal >60 [facility] Comment on above: Result Comment: Canc elled via OM: Order edited - Discontinuing original order Performed By: #### L 500.2500 ####[facility] [address] [place], [address] GAP Normal 5-15 [facility] Comment on above: Result Comment: Canc elled via OM: Order edited - Discontinuing original order Performed By: #### L 500.2500 ####[facility] [address] [place], [address] GLU Normal 74-106 [facility] Comment on above: Result Comment: Canc elled via OM: Order edited - Discontinuing original order Performed By: #### L 500.2500 ####[facility] [address] [place], [address] Potassium Normal 3.5-5.1 [facility] Comment on above: Result Comment: Canc elled via OM: Order edited - Discontinuing original order Performed By: #### L 500.2500 ####[facility] [address] [place], [address] Basic Metabolic Profile (BMP) Normal 136-145 [facility] Comment on above: Result Comment: Canc elled via OM: Order edited - Discontinuing original order Performed By: #### L 500.2500 ####[facility] [address] [place], [address] BUN/CRE 14.2 RATIO Normal 10-20 [facility] Comment on above: Performed By: #### L 500.2500 ####[facility] [address] [place], [address] CA,Total 5.5 mg/dL Invalid Interpretation Code 8.5-10.1 [facility] Comment on above: Performed By: #### L 500.2500 ####[facility] [address] [place], [address] Chloride [Moles/Vol] 103 mmol/L Normal 98-107 [facility] Comment on above: Performed By: #### L 500.2500 ####[facility] [address] [place], [address] CO2 [Moles/Vol] 24.0 mmol/L Normal 21.0-32.0 [facility] Comment on above: Performed By: #### L 500.2500 ####[facility] [address] [place], [address] Creatinine [Mass/Vol] 3.65 mg/dL High 0.55-1.02 [facility] Comment on above: Result Comment: The validity of the calculated GFR GFRAA in patients over70 years has not been determined. Clinical correlation isessential. Performed By: #### L 500.2500 ####[facility] [address] [place], [address] ECRCL 11.92 ml/min Normal [facility] Comment on above: Performed By: #### L 500.2500 ####[facility] [address] [place], [address] EST GFR - AA 16 mL/min Low >60 [facility] Comment on above: Result Comment: Afri can Turkish GFR Calc Performed By: #### L 500.2500 ####[facility] [address] [place], [address] GAP 8 Normal 5-15 [facility] Comment on above: Performed By: #### L 500.2500 ####[facility] [address] [place], [address] GFR/1.73 sq M.predicted among non-blacks MDRD (S/P/Bld) [Vol rate/Area] 13 mL/min/{1.73_m2} Low >60 [facility] Comment on above: Result Comment: Non- GFR Calc Performed By: #### L 500.2500 ####[facility] [address] [place], [address] Glucose [Mass/Vol] 215 mg/dL High 74-106 [facility] Comment on above: Result Comment: Gluc ose result greater than or equal to 200 mg/dLsuggests DIABETES MELLITUS per A.D.A. criteria. Performed By: #### L 500.2500 ####[facility] [address] [place], [address] Potassium [Moles/Vol] 5.2 mmol/L High 3.5-5.1 [facility] Comment on above: Performed By: #### L 500.2500 ####[facility] [address] [place], [address] Sodium [Moles/Vol] 135 mmol/L Low 136-145 [facility] Comment on above: Performed By: #### L 500.2500 ####[facility] [address] [place], [address] Urea nitrogen [Mass/Vol] 52 mg/dL High 7-18 [facility] Comment on above: Performed By: #### L 500.2500 ####[facility] [address] [place], [address] Bedside Glucoseon 07-24-2024 FINGERSTICK GLU 239 mg/dL High 74-106 [facility] Comment on above: Result Comment: SHELLY GEMENT OF PATIENT CARE PER NURSING PROTOCOL Performed By: #### L 501.080 ####[facility] [address] [place], [address] FINGERSTICK GLU 281 mg/dL High 74-106 [facility] Comment on above: Result Comment: SHELLY GEMENT OF PATIENT CARE PER NURSING PROTOCOL Performed By: #### L 501.080 ####[facility] [address] [place], [address] FINGERSTICK GLU 287 mg/dL High 74-106 [facility] Comment on above: Result Comment: SHELLY GEMENT OF PATIENT CARE PER NURSING PROTOCOL Performed By: #### L 501.080 ####[facility] [address] [place], [address] FINGERSTICK GLU 193 mg/dL High 74-106 [facility] Comment on above: Result Comment: SHELLY GEMENT OF PATIENT CARE PER NURSING PROTOCOL Performed By: #### L 501.080 ####[facility] [address] [place], [address] FINGERSTICK GLU 337 mg/dL High -[address] [place] [address] Comment on above: Result Comment: SHELLY GEMENT OF PATIENT CARE PER NURSING PROTOCOL Performed By: #### L 501.080 ####[facility] [address] [place], [address] FINGERSTICK GLU 177 mg/dL High -106 [facility] Comment on above: Result Comment: SHELLY GEMENT OF PATIENT CARE PER NURSING PROTOCOL Performed By: #### L 501.080 ####[facility] [address] [place], [address] FINGERSTICK GLU 225 mg/dL High [address] [place] [address] Comment on above: Result Comment: SHELLY GEMENT OF PATIENT CARE PER NURSING PROTOCOL Performed By: #### L 501.080 ####[facility] [address] [place], [address] CBC W/Diff, Automatedon 07-05 Absolute Lymph 0.47 X10 3/uL Low 0.83-4.51 [facility] Comment on above: Performed By: #### L 506.1000, L100.0100, L500.4050, L509.1000, L3300.0960, L501.9985 ####[facility] [address] [place], [address] Absolute Neut 6.3 X10 3/uL Normal 2.0-7.7 [facility] Comment on above: Performed By: #### L 506.1000, L100.0100, L500.4050, L509.1000, L3300.0960, L501.9985 ####[facility] [address] [place], [address] Basophils/100 WBC (Bld) 0.7 % Normal 0-1 [facility] Comment on above: Performed By: #### L 506.1000, L100.0100, L500.4050, L509.1000, L3300.0960, L501.9985 ####[facility] [address] [place], [address] Eosinophils/100 WBC (Bld) 1.6 % Normal 0-5 [facility] Comment on above: Performed By: #### L 506.1000, L100.0100, L500.4050, L509.1000, L3300.0960, L501.9985 ####[facility] [address] [place], [address] Erythrocyte distribution width (RBC) [Ratio] 14.9 % High 11.6-14.6 [facility] Comment on above: Performed By: #### L 506.1000, L100.0100, L500.4050, L509.1000, L3300.0960, L501.9985 ####[facility] [address] [place], [address] Hematocrit (Bld) [Volume fraction] 29.4 % Low 37-47 [facility] Comment on above: Performed By: #### L 506.1000, L100.0100, L500.4050, L509.1000, L3300.0960, L501.9985 ####[facility] [address] [place], [address] Hemoglobin (Bld) [Mass/Vol] 8.6 g/dL Low 12.0-15.0 [facility] Comment on above: Performed By: #### L 506.1000, L100.0100, L500.4050, L509.1000, L3300.0960, L501.9985 ####[facility] [address] [place], [address] IG% 2.100 High 0.0-0.9 [facility] Comment on above: Result Comment: IG% - Immature Granulocytes (promyelocytes, myelocytes andmetamyelocytes) > 1% indicates that a LEFT SHIFT is Present. Performed By: #### L 506.1000, L100.0100, L500.4050, L509.1000, L3300.0960, L501.9985 ####[facility] [address] [place], [address] Lymphocytes/100 WBC (Bld) 6.5 % Low 19-41 [facility] Comment on above: Performed By: #### L 506.1000, L100.0100, L500.4050, L509.1000, L3300.0960, L501.9985 ####[facility] [address] [place], [address] MCH (RBC) [Entitic mass] 28.2 pg Normal 27.0-32.0 [facility] Comment on above: Performed By: #### L 506.1000, L100.0100, L500.4050, L509.1000, L3300.0960, L501.9985 ####[facility] [address] [place], [address] MCHC (RBC) [Mass/Vol] 29.3 g/dL Low 32-36 [facility] Comment on above: Performed By: #### L 506.1000, L100.0100, L500.4050, L509.1000, L3300.0960, L501.9985 ####[facility] [address] [place], [address] MCV (RBC) [Entitic vol] 96.4 fL Normal 81-99 [facility] Comment on above: Performed By: #### L 506.1000, L100.0100, L500.4050, L509.1000, L3300.0960, L501.9985 ####[facility] [address] [place], [address] Monocytes/100 WBC (Bld) 2.2 % Normal 0-10 [facility] Comment on above: Performed By: #### L 506.1000, L100.0100, L500.4050, L509.1000, L3300.0960, L501.9985 ####[facility] [address] [place], [address] Neutrophils/100 WBC (Bld) 86.9 % High 47-70 [facility] Comment on above: Performed By: #### L 506.1000, L100.0100, L500.4050, L509.1000, L3300.0960, L501.9985 ####[facility] [address] [place], [address] Nucleated RBC (Bld) [#/Vol] 0.3 10*3/uL Normal 0-5 [facility] Comment on above: Performed By: #### L 506.1000, L100.0100, L500.4050, L509.1000, L3300.0960, L501.9985 ####[facility] [address] [place], [address] Platelet mean volume (Bld) [Entitic vol] 10.3 fL Normal 6.2-12.0 [facility] Comment on above: Performed By: #### L 506.1000, L100.0100, L500.4050, L509.1000, L3300.0960, L501.9985 ####[facility] [address] [place], [address] Platelets (Bld) [#/Vol] 196 10*3/uL Normal 150-450 [facility] Comment on above: Performed By: #### L 506.1000, L100.0100, L500.4050, L509.1000, L3300.0960, L501.9985 ####[facility] [address] [place], [address] RBC (Bld) [#/Vol] 3.05 10*6/uL Low 4.2-5.4 [facility] Comment on above: Performed By: #### L 506.1000, L100.0100, L500.4050, L509.1000, L3300.0960, L501.9985 ####[facility] [address] [place], [address] RDW SD 52.3 fl High 35.1-43.9 [facility] Comment on above: Performed By: #### L 506.1000, L100.0100, L500.4050, L509.1000, L3300.0960, L501.9985 ####[facility] [address] [place], [address] WBC (Bld) [#/Vol] 7.3 10*3/uL Normal 4.4-11.0 [facility] Comment on above: Performed By: #### L 506.1000, L100.0100, L500.4050, L509.1000, L3300.0960, L501.9985 ####[facility] [address] [place], [address] CPK Total, Creatine Kinaseon 07-24-2024 CPK TOTAL 604 U/L High 26-192 [facility] Comment on above: Order Comment: Comme nts: May add to ED labsComments: add to ED labsComments: may add to ED labsmay add to ED labs Performed By: #### L 509.7000, L101.9900, L501.5200, L503.6550, L501.6710, L503.6030, L501.2300, L501.3620, L504.2610, L503.6620, L300.8000 ####[facility] [address] [place], [address] CRPon 07-24-2024 C-REACTIVE PROT 62.00 mg/L High 0.0-3.0 [facility] Comment on above: Order Comment: Comme nts: May add to ED labsComments: add to ED labsComments: may add to ED labsmay add to ED labs Result Comment: C-Re active Protein (CRP) provides useful information for thediagnosis, therapy and monitoring of inflammatory processesand associated diseases. For the evaluation of Relative Riskfor Cardiovascular Disease, a High Sensitivity CRP (HSCRP)should be ordered. Performed By: #### L 509.7000, L101.9900, L501.5200, L503.6550, L501.6710, L503.6030, L501.2300, L501.3620, L504.2610, L503.6620, L300.8000 ####[facility] [address] [place], [address] Calcium, Urine (Random)on Calcium Ur [place] < 5.0 Normal Not Estab. [facility] Comment on above: Performed By: #### L 501.2240 ####[facility] [address] [place], [address] Comprehensive Metabolic Prof ilon 07-24-2024 Albumin [Mass/Vol] 2.9 g/dL Low 3.2-5.0 [facility] Comment on above: Performed By: #### L 506.1000, L100.0100, L500.4050, L509.1000, L3300.0960, L501.9985 ####[facility] [address] [place], [address] Albumin/Globulin [Mass ratio] 0.7 {ratio} Low 0.9-2.4 [facility] Comment on above: Performed By: #### L 506.1000, L100.0100, L500.4050, L509.1000, L3300.0960, L501.9985 ####[facility] [address] [place], [address] ALK P 78 U/L Normal 45-117 [facility] Comment on above: Performed By: #### L 506.1000, L100.0100, L500.4050, L509.1000, L3300.0960, L501.9985 ####[facility] [address] [place], [address] ALT [Catalytic activity/Vol] 17 U/L Normal 13-56 [facility] Comment on above: Performed By: #### L 506.1000, L100.0100, L500.4050, L509.1000, L3300.0960, L501.9985 ####[facility] [address] [place], [address] AST [Catalytic activity/Vol] 18 U/L Normal 15-37 [facility] Comment on above: Performed By: #### L 506.1000, L100.0100, L500.4050, L509.1000, L3300.0960, L501.9985 ####[facility] [address] [place], [address] Bilirubin [Mass/Vol] 0.40 mg/dL Normal 0.20-1.00 [facility] Comment on above: Result Comment: For patients on eltrombopag therapy, use of Dimension [place] TBIL is not recommended. Performed By: #### L 506.1000, L100.0100, L500.4050, L509.1000, L3300.0960, L501.9985 ####[facility] [address] [place], [address] BUN/CRE 12.2 RATIO Normal 10-20 [facility] Comment on above: Performed By: #### L 506.1000, L100.0100, L500.4050, L509.1000, L3300.0960, L501.9985 ####[facility] [address] [place], [address] CA,Total 5.7 mg/dL Invalid Interpretation Code 8.5-10.1 [facility] Comment on above: Result Comment: Crit ical Result(s) Called at: 11:08:06 07/24/2024 by: Hannah Deleon RN ([facility]). Results read back by same. Performed By: #### L 506.1000, L100.0100, L500.4050, L509.1000, L3300.0960, L501.9985 ####[facility] [address] [place], [address] Chloride [Moles/Vol] 103 mmol/L Normal 98-107 [facility] Comment on above: Performed By: #### L 506.1000, L100.0100, L500.4050, L509.1000, L3300.0960, L501.9985 ####[facility] [address] [place], [address] CO2 [Moles/Vol] 23.0 mmol/L Normal 21.0-32.0 [facility] Comment on above: Performed By: #### L 506.1000, L100.0100, L500.4050, L509.1000, L3300.0960, L501.9985 ####[facility] [address] [place], [address] Creatinine [Mass/Vol] 3.45 mg/dL High 0.55-1.02 [facility] Comment on above: Result Comment: The validity of the calculated GFR GFRAA in patients over70 years has not been determined. Clinical correlation isessential. Performed By: #### L 506.1000, L100.0100, L500.4050, L509.1000, L3300.0960, L501.9985 ####[facility] [address] [place], [address] ECRCL 12.61 ml/min Normal [facility] Comment on above: Performed By: #### L 506.1000, L100.0100, L500.4050, L509.1000, L3300.0960, L501.9985 ####[facility] [address] [place], [address] EST GFR - AA 17 mL/min Low >60 [facility] Comment on above: Result Comment: Afri can Turkish GFR Calc Performed By: #### L 506.1000, L100.0100, L500.4050, L509.1000, L3300.0960, L501.9985 ####[facility] [address] [place], [address] GAP 8 Normal 5-15 [facility] Comment on above: Performed By: #### L 506.1000, L100.0100, L500.4050, L509.1000, L3300.0960, L501.9985 ####[facility] [address] [place], [address] GFR/1.73 sq M.predicted among non-blacks MDRD (S/P/Bld) [Vol rate/Area] 14 mL/min/{1.73_m2} Low >60 [facility] Comment on above: Result Comment: Non- GFR Calc Performed By: #### L 506.1000, L100.0100, L500.4050, L509.1000, L3300.0960, L501.9985 ####[facility] [address] [place], [address] Globulin (S) [Mass/Vol] 3.9 g/dL Normal 2.2-4.2 [facility] Comment on above: Performed By: #### L 506.1000, L100.0100, L500.4050, L509.1000, L3300.0960, L501.9985 ####[facility] [address] [place], [address] Glucose [Mass/Vol] 220 mg/dL High 74-106 [facility] Comment on above: Result Comment: Gluc ose result greater than or equal to 200 mg/dLsuggests DIABETES MELLITUS per A.D.A. criteria. Performed By: #### L 506.1000, L100.0100, L500.4050, L509.1000, L3300.0960, L501.9985 ####[facility] [address] [place], [address] Potassium [Moles/Vol] 6.2 mmol/L Invalid Interpretation Code 3.5-5.1 [facility] Comment on above: Result Comment: Crit ical Result(s) Called at: 11:08:06 07/24/2024 by: Hannah Deleon RN ([facility]). Results read back by same. Performed By: #### L 506.1000, L100.0100, L500.4050, L509.1000, L3300.0960, L501.9985 ####[facility] [address] [place], [address] Sodium [Moles/Vol] 134 mmol/L Low 136-145 [facility] Comment on above: Performed By: #### L 506.1000, L100.0100, L500.4050, L509.1000, L3300.0960, L501.9985 ####[facility] [address] [place], [address] T PROT 6.8 g/dL Normal 6.4-8.2 [facility] Comment on above: Performed By: #### L 506.1000, L100.0100, L500.4050, L509.1000, L3300.0960, L501.9985 ####[facility] [address] [place], [address] Urea nitrogen [Mass/Vol] 42 mg/dL High 7-18 [facility] Comment on above: Performed By: #### L 506.1000, L100.0100, L500.4050, L509.1000, L3300.0960, L501.9985 ####[facility] [address] [place], [address] Consultation - Nephrologyon 07-24-2024 Consultation - Nephrology Normal [facility] Creatinine, Urine (random)on 07-24-2024 UR CREAT 78.60 mg/dL Normal NO RANGE EST. [facility] Comment on above: Performed By: #### L 501.5500, L501.1200 ####[facility] [address] [place], [place], [address] D-Dimer Quantitative (DVT/PE )on 07-24-2024 D-DIMER QUANT 2.82 FEU/ug/m Invalid Interpretation Code 0.27-0.49 [facility] Comment on above: Result Comment: D-Di vera ELEVATED (>0.49): Additional studies and clinicalassessments are indicated to conclude diagnosis of:Deep Vein Thrombosis (DVT) or Pulmonary Embolism (PE)CRITICAL VALUE CALLED TO MASLPFLGH72/21/24 0038 Ana Rosa Andrew.RESULTS READ BACK BY SAME. Performed By: #### L 509.7000, L101.9900, L501.5200, L503.6550, L501.6710, L503.6030, L501.2300, L501.3620, L504.2610, L503.6620, L300.8000 ####[facility] [address] [place], [address] Erythrocyte Sed Rateon 07-24 SED RATE 21 mm/hr Normal 0-30 [facility] Comment on above: Performed By: #### L 509.7000, L101.9900, L501.5200, L503.6550, L501.6710, L503.6030, L501.2300, L501.3620, L504.2610, L503.6620, L300.8000 ####[facility] [address] [place], [place], [id number] Ferritinon 07-24-2024 Ferritin [Mass/Vol] 106 ng/mL Normal 8-252 [facility] Comment on above: Order Comment: Comme nts: May add to ED labsComments: add to ED labsComments: may add to ED labsmay add to ED labs Performed By: #### L 509.7000, L101.9900, L501.5200, L503.6550, L501.6710, L503.6030, L501.2300, L501.3620, L504.2610, L503.6620, L300.8000 ####[facility] [address] [place], [place], [id number] Hemoglobin A1con 07-24-2024 HbA1c (Bld) [Mass fraction] 5.7 % High 3.8-5.6 [facility] Comment on above: Result Comment: Norm al < 5.7 % Prediabetic 5.7 - 6.4 % Diabetic >or= 6.5 % Please note range changes. Performed By: #### L 506.1000, L100.0100, L500.4050, L509.1000, L3300.0960, L501.9985 ####[facility] [address] [place], [place], [phone] Iron+Iron Binding Capacityon 07-24-2024 Iron [Mass/Vol] 24 ug/dL Low 50-170 [facility] Comment on above: Order Comment: Comme nts: May add to ED labsComments: add to ED labsComments: may add to ED labsmay add to ED labs Performed By: #### L 509.7000, L101.9900, L501.5200, L503.6550, L501.6710, L503.6030, L501.2300, L501.3620, L504.2610, L503.6620, L300.8000 ####[facility] [address] [place], [address] IRON SATURATION 10.3 Low 15.0-55.0 [facility] Comment on above: Order Comment: Comme nts: May add to ED labsComments: add to ED labsComments: may add to ED labsmay add to ED labs Performed By: #### L 509.7000, L101.9900, L501.5200, L503.6550, L501.6710, L503.6030, L501.2300, L501.3620, L504.2610, L503.6620, L300.8000 ####[facility] [address] [place], [address] TIBC 233 ug/dL Low 250-450 [facility] Comment on above: Order Comment: Comme nts: May add to ED labsComments: add to ED labsComments: may add to ED labsmay add to ED labs Performed By: #### L 509.7000, L101.9900, L501.5200, L503.6550, L501.6710, L503.6030, L501.2300, L501.3620, L504.2610, L503.6620, L300.8000 ####[facility] [address] [place], [address] Kidney and Bladderon 024 Kidney and Bladder Normal [facility] L501.2276on 07-24-2024 Ionized Calcium 3.39 mg/dL Low 4.36-5.20 [facility] Comment on above: Performed By: #### L 501.2276 ####[facility] [address] [place], [address] LDHon 07-24-2024 LDH 334 U/L High 84-246 [facility] Comment on above: Order Comment: Comme nts: May add to ED labsComments: add to ED labsComments: may add to ED labsmay add to ED labs Performed By: #### L 509.7000, L101.9900, L501.5200, L503.6550, L501.6710, L503.6030, L501.2300, L501.3620, L504.2610, L503.6620, L300.8000 ####[facility] [address] [place], [address] Liver Profileon 07-24-2024 Albumin [Mass/Vol] 2.7 g/dL Low 3.2-5.0 [facility] Comment on above: Performed By: #### L 500.3400 ####[facility] [address] [place], [address] ALK P 75 U/L Normal 45-117 [facility] Comment on above: Performed By: #### L 500.3400 ####[facility] [address] [place], [address] ALT [Catalytic activity/Vol] 17 U/L Normal 13-56 [facility] Comment on above: Performed By: #### L 500.3400 ####[facility] [address] [place], [address] AST [Catalytic activity/Vol] 17 U/L Normal 15-37 [facility] Comment on above: Performed By: #### L 500.3400 ####[facility] [address] [place], [address] Bilirubin [Mass/Vol] 0.20 mg/dL Normal 0.20-1.00 [facility] Comment on above: Result Comment: For patients on eltrombopag therapy, use of Dimension [place] TBIL is not recommended. Performed By: #### L 500.3400 ####[facility] [address] [place], [address] Bilirubin.direct [Mass/Vol] 0.10 mg/dL Normal 0.00-0.30 [facility] Comment on above: Performed By: #### L 500.3400 ####[facility] [address] [place], [address] Globulin (S) [Mass/Vol] 3.7 g/dL Normal 2.2-4.2 [facility] Comment on above: Performed By: #### L 500.3400 ####[facility] [address] [place], [address] T PROT 6.4 g/dL Normal 6.4-8.2 [facility] Comment on above: Performed By: #### L 500.3400 ####[facility] [address] [place], [address] M100.678on 07-24-2024 M100.678 Normal [facility] Comment on above: Performed By: #### M 100.678 ####[facility] [address] [place], [address] Magnesiumon 07-24-2024 Magnesium [Mass/Vol] 1.6 mg/dL Normal 1.6-2.6 [facility] Comment on above: Order Comment: Comme nts: May add to ED labsComments: add to ED labsComments: may add to ED labsmay add to ED labs Performed By: #### L 509.7000, L101.9900, L501.5200, L503.6550, L501.6710, L503.6030, L501.2300, L501.3620, L504.2610, L503.6620, L300.8000 ####[facility] [address] [place], [address] PTHINon 07-24-2024 PTH 1027.8 pg/mL High 18.4-80.1 [facility] Comment on above: Performed By: #### L 506.1000, L100.0100, L500.4050, L509.1000, L3300.0960, L501.9985 ####[facility] [address] [place], [place], [address] Phosphoruson 07-24-2024 Phosphate [Mass/Vol] 5.0 mg/dL High 2.5-4.9 [facility] Comment on above: Order Comment: Comme nts: May add to ED labsComments: add to ED labsComments: may add to ED labsmay add to ED labs Performed By: #### L 509.7000, L101.9900, L501.5200, L503.6550, L501.6710, L503.6030, L501.2300, L501.3620, L504.2610, L503.6620, L300.8000 ####[facility] [address] [facility] [address] [place], [place], [address] Procalcitoninon 07-24-2024 Procalcitonin 0.11 ng/mL High 0.00-0.09 [facility] Comment on above: Result Comment: A pr ocalcitonin (PCT) level above 2.0 ng/mL on the first day of ICU admission is associated with a high risk for progression to severe sepsis and/or septic shock. A PCT level below 0.5 ng/mL on the first day of ICU admission is associated with a low risk for progression to severe and/or septic shock. Note: Concentrations <0.5 ng/mL do not exclude an infection on account of localized infections (without systemic signs) which can be associated with such low concentrations, or a systemic infection in its initial stages (<6 hours). Furthermore, increased procalcitonin can occur without infection. PCT concentrations between 0.5 and 2.0 ng/mL should be interpreted taking into account the patient's history. It is recommended to retest PCT within 6-24 hours if any concentrations <2 ng/mL are obtained. Performed By: #### L 509.7000, L101.9900, L501.5200, L503.6550, L501.6710, L503.6030, L501.2300, L501.3620, L504.2610, L503.6620, L300.8000 ####[facility] [address] [place], [address] Stool Occult Blood iFOBon STOB Positive Normal [facility] Comment on above: Performed By: #### M 100.7900 ####[facility] [address] [place], [address] Type AND Screenon 07-24-2024 Ab SCREEN GEL TNP Normal [facility] Comment on above: Order Comment: CMV N EG? NNumber of units to transfuse: 1Is pt's Hgb is = to 7.0 mg/dl or Hct </= 21%? YReason for Ordering Blood: ChronicAre the blood/blood products to be transfused? YIs the patient having/had surgery? NHas pt arrived? YWhen ReadyNY Result Comment: AMENDED REPORT 07/24/24 0141: Antibody Screen previously reported as:NEGATIVE Performed By: #### B SATHYA, BTS, E81459-7 ####[facility] [address] [place], [address] Urinalysis, Completeon 07-24 BACTERIA 1+ /hpf Normal None Seen [facility] Comment on above: Order Comment: CLEAN CATCH Performed By: #### L 400.0001 ####[facility] [address] [place], [address] WBC 0-5 SEEN Normal 0-5 [facility] Comment on above: Order Comment: CLEAN CATCH Performed By: #### L 400.0001 ####[facility] [address] [place], [address] Urine Sodiumon 07-24-2024 Sodium (U) [Moles/Vol] 23 mmol/L Normal Not Establ. [facility] Comment on above: Performed By: #### L 501.5500, L501.1200 ####[facility] [address] [place], [place], [address] Vitamin D,25 Hydroxyon 07-24 Vitamin D 25-OH 11.5 ng/mL Normal [facility] Comment on above: Result Comment: Greta min D 25(OH) Status Range Deficiency <20 ng/mL (50nmol/L) Insufficiency 20 - 30 ng/mL (50 - 75 nmol/L) Sufficiency 30 - 100 ng/mL (75 - 250 nmol/L) Toxicity >100 ng/mL (>250 nmol/L) Performed By: #### L 506.1000, L100.0100, L500.4050, L509.1000, L3300.0960, L501.9985 ####[facility] [address] [place], [address] 12 Lead EKGon 07-23-2024 12 Lead EKG Normal [facility] BRCon 07-23-2024 RC Normal [facility] Comment on above: Result Comment: [id number] OP RC TRANSFUSED 07/26/24 [id number] OP RC TRANSFUSED 07/26/24 0424 Performed By: #### B RC ####[facility] [address] [place], [place], [address] Result Comment: [id number] OP RC TRANSFUSED 07/24/24 0306 Performed By: #### B RC, BTS, [id number] ####[facility] [address] [place], [address] Basic Metabolic Profile (BMP )on 07-23-2024 BUN/CRE 12.0 RATIO Normal 08-22 [facility] Comment on above: Order Comment: 'TROP ' Serial specimen #1, #2 or #3: 1 Performed By: #### L 500.2500, L100.0100, L501.4020 ####[facility] [address] [place], [address] CA,Total 5.4 mg/dL Invalid Interpretation Code 8.5-10.1 [facility] Comment on above: Order Comment: 'TROP ' Serial specimen #1, #2 or #3: 1 Result Comment: Crit ical Result(s) Called at: 23:18:14 07/23/2024 by:[facility] Results read back by same. Performed By: #### L 500.2500, L100.0100, L501.4020 ####[facility] [address] [place], [address] Chloride [Moles/Vol] 101 mmol/L Normal 98-107 [facility] Comment on above: Order Comment: 'TROP ' Serial specimen #1, #2 or #3: 1 Performed By: #### L 500.2500, L100.0100, L501.4020 ####[facility] [address] [place], [address] CO2 [Moles/Vol] 29.0 mmol/L Normal 21.0-32.0 [facility] Comment on above: Order Comment: 'TROP ' Serial specimen #1, #2 or #3: 1 Performed By: #### L 500.2500, L100.0100, L501.4020 ####[facility] [address] [place], [address] Creatinine [Mass/Vol] 3.66 mg/dL High 0.55-1.02 [facility] Comment on above: Order Comment: 'TROP ' Serial specimen #1, #2 or #3: 1 Result Comment: The validity of the calculated GFR GFRAA in patients over70 years has not been determined. Clinical correlation isessential. Performed By: #### L 500.2500, L100.0100, L501.4020 ####[facility] [address] [place], [address] EST GFR - AA 16 mL/min Low >60 [facility] Comment on above: Order Comment: 'TROP ' Serial specimen #1, #2 or #3: 1 Result Comment: Afri can Turkish GFR Calc Performed By: #### L 500.2500, L100.0100, L501.4020 ####[facility] [address] [place], [address] GAP 4 Low 5-15 [facility] Comment on above: Order Comment: 'TROP ' Serial specimen #1, #2 or #3: 1 Performed By: #### L 500.2500, L100.0100, L501.4020 ####[facility] [address] [place], [address] GFR/1.73 sq M.predicted among non-blacks MDRD (S/P/Bld) [Vol rate/Area] 13 mL/min/{1.73_m2} Low >60 [facility] Comment on above: Order Comment: 'TROP ' Serial specimen #1, #2 or #3: 1 Result Comment: Non- GFR Calc Performed By: #### L 500.2500, L100.0100, L501.4020 ####[facility] [address] [place], [address] Glucose [Mass/Vol] 146 mg/dL High 74-106 [facility] Comment on above: Order Comment: 'TROP ' Serial specimen #1, #2 or #3: 1 Result Comment: Fast ing Glucose result greater than or equal to 126 mg/dLsuggests DIABETES MELLITUS per A.D.A. criteria. Performed By: #### L 500.2500, L100.0100, L501.4020 ####[facility] [address] [place], [address] Potassium [Moles/Vol] 5.4 mmol/L High 3.5-5.1 [facility] Comment on above: Order Comment: 'TROP ' Serial specimen #1, #2 or #3: 1 Performed By: #### L 500.2500, L100.0100, L501.4020 ####[facility] [address] [place], [address] Sodium [Moles/Vol] 134 mmol/L Low 136-145 [facility] Comment on above: Order Comment: 'TROP ' Serial specimen #1, #2 or #3: 1 Performed By: #### L 500.2500, L100.0100, L501.4020 ####[facility] [address] [place], [address] Urea nitrogen [Mass/Vol] 44 mg/dL High 7-18 [facility] Comment on above: Order Comment: 'TROP ' Serial specimen #1, #2 or #3: 1 Performed By: #### L 500.2500, L100.0100, L501.4020 ####[facility] [address] [place], [address] Bedside Glucoseon 07-23-2024 FINGERSTICK GLU 120 mg/dL High 74-106 [facility] Comment on above: Result Comment: SHELLY GEMENT OF PATIENT CARE PER NURSING PROTOCOL Performed By: #### L 501.080 ####[facility] [address] [place], [address] FINGERSTICK GLU 163 mg/dL High 74-106 [facility] Comment on above: Result Comment: SHELLY GEMENT OF PATIENT CARE PER NURSING PROTOCOL Performed By: #### L 501.080 ####[facility] [address] [place], [address] CBC W/Diff, Automatedon 07-05 Absolute Lymph 1.37 X10 3/uL Normal 0.83-4.51 [facility] Comment on above: Performed By: #### L 500.2500, L100.0100, L501.4020 ####[facility] [address] [place], [address] Absolute Neut 4.2 X10 3/uL Normal 2.0-7.7 [facility] Comment on above: Performed By: #### L 500.2500, L100.0100, L501.4020 ####[facility] [address] [place], [address] Basophils/100 WBC (Bld) 0.5 % Normal 0-1 [facility] Comment on above: Performed By: #### L 500.2500, L100.0100, L501.4020 ####[facility] [address] [place], [address] Eosinophils/100 WBC (Bld) 4.6 % Normal 0-5 [facility] Comment on above: Performed By: #### L 500.2500, L100.0100, L501.4020 ####[facility] [address] [place], [address] Erythrocyte distribution width (RBC) [Ratio] 13.5 % Normal 11.6-14.6 [facility] Comment on above: Performed By: #### L 500.2500, L100.0100, L501.4020 ####[facility] [address] [place], [address] Hematocrit (Bld) [Volume fraction] 24.0 % Low 37-47 [facility] Comment on above: Performed By: #### L 500.2500, L100.0100, L501.4020 ####[facility] [address] [place], [address] Hemoglobin (Bld) [Mass/Vol] 7.0 g/dL Low 12.0-15.0 [facility] Comment on above: Performed By: #### L 500.2500, L100.0100, L501.4020 ####[facility] [address] [place], [address] IG% 0.600 Normal 0.0-0.9 [facility] Comment on above: Result Comment: IG% - Immature Granulocytes (promyelocytes, myelocytes andmetamyelocytes) > 1% indicates that a LEFT SHIFT is Present. Performed By: #### L 500.2500, L100.0100, L501.4020 ####[facility] [address] [place], [address] Lymphocytes/100 WBC (Bld) 21.1 % Normal 19-41 [facility] Comment on above: Performed By: #### L 500.2500, L100.0100, L501.4020 ####[facility] [address] [place], [address] MCH (RBC) [Entitic mass] 28.3 pg Normal 27.0-32.0 [facility] Comment on above: Performed By: #### L 500.2500, L100.0100, L501.4020 ####[facility] [address] [place], [address] MCHC (RBC) [Mass/Vol] 29.2 g/dL Low 32-36 [facility] Comment on above: Performed By: #### L 500.2500, L100.0100, L501.4020 ####[facility] [address] [place], [address] MCV (RBC) [Entitic vol] 97.2 fL Normal 81-99 [facility] Comment on above: Performed By: #### L 500.2500, L100.0100, L501.4020 ####[facility] [address] [place], [address] Monocytes/100 WBC (Bld) 7.7 % Normal 0-10 [facility] Comment on above: Performed By: #### L 500.2500, L100.0100, L501.4020 ####[facility] [address] [place], [address] Neutrophils/100 WBC (Bld) 65.5 % Normal 47-70 [facility] Comment on above: Performed By: #### L 500.2500, L100.0100, L501.4020 ####[facility] [address] [place], [address] Nucleated RBC (Bld) [#/Vol] 0 10*3/uL Normal 0-5 [facility] Comment on above: Performed By: #### L 500.2500, L100.0100, L501.4020 ####[facility] [address] [place], [address] Platelet mean volume (Bld) [Entitic vol] 10.2 fL Normal 6.2-12.0 [facility] Comment on above: Performed By: #### L 500.2500, L100.0100, L501.4020 ####[facility] [address] [place], [address] Platelets (Bld) [#/Vol] 182 10*3/uL Normal 150-450 [facility] Comment on above: Performed By: #### L 500.2500, L100.0100, L501.4020 ####[facility] [address] [place], [address] RBC (Bld) [#/Vol] 2.47 10*6/uL Low 4.2-5.4 [facility] Comment on above: Performed By: #### L 500.2500, L100.0100, L501.4020 ####[facility] [address] [place], [address] RDW SD 48.6 fl High 35.1-43.9 [facility] Comment on above: Performed By: #### L 500.2500, L100.0100, L501.4020 ####[facility] [address] [place], [address] WBC (Bld) [#/Vol] 6.5 10*3/uL Normal 4.4-11.0 [facility] Comment on above: Performed By: #### L 500.2500, L100.0100, L501.4020 ####[facility] [address] [place], [address] Chest PA and Lateralon 07-23 Chest PA and Lateral Normal [facility] Emergency Department Summary on 07-23-2024 Emergency Department Summary Normal [facility] H AND P Exam - Hospitaliston 07-23-2024 H&P Exam - Hospitalist Normal [facility] L501.4020on 07-23-2024 TROPONIN-I HS 30 pg/mL Normal 3.0-54.0 [facility] Comment on above: Order Comment: 'TROP ' Serial specimen #1, #2 or #3: 1 Result Comment: Ry adhikari Note: New Test Units and Gender Specific Reference Ranges. For more information see Policy Stat Procedure [place] High Sensitivity Troponin (TNIH) and attachments. Performed By: #### L 500.2500, L100.0100, L501.4020 ####[facility] [address] [place], [address] Urinalysis, Completeon 07-23 EPI,SQUAMOUS 0 SEEN Normal 5-10 [facility] Comment on above: Order Comment: CLEAN CATCH Performed By: #### L 400.0001 ####[facility] [address] [place], [address] Mucus Ql (Urine sed) 0 SEEN Normal [facility] Comment on above: Order Comment: CLEAN CATCH Performed By: #### L 400.0001 ####[facility] [address] [place], [address] RBC 0 SEEN Normal 0-5 [facility] Comment on above: Order Comment: CLEAN CATCH Performed By: #### L 400.0001 ####[facility] [address] [place], [address] Office Visit Reporton 2023 Office Visit Report Normal [facility] Dexa Bone Density Studyon Dexa Bone Density Study Normal [facility] Cardiology Visit Reporton Cardiology Visit Report Normal [facility] Chest without Contraston Chest without Contrast Normal [facility] 24 HR Urine Creatinineon UR TOTAL VOLUME 1.70 Normal [facility] Comment on above: Performed By: #### L 502.000, L500.9000 ####[facility] [address], [address] UR.CREAT/24hr 0.62 g/24 HR Low 0.70-1.90 [facility] Comment on above: Performed By: #### L 502.000, L500.9000 ####[facility] [address] [place], [address] URINE CREAT 35.80 mg/dL Normal NO RANGE EST. [facility] Comment on above: Performed By: #### L 502.000, L500.9000 ####[facility] [address] [place], [address] Protein, Urine 24HRon 2023 24hr UR PROTEIN 2261.5 mg/24HR High <150 MG/24HR [facility] Comment on above: Performed By: #### L 502.000, L500.9000 ####[facility] [address] [place], [address] Protein Ql (U) 131.1 mg/dL High <11.9 [facility] Comment on above: Performed By: #### L 502.000, L500.9000 ####[facility] [address] [place], [address] UR COLLECT TIME 24.0 HOURS Normal 24.0 [facility] Comment on above: Performed By: #### L 502.000, L500.9000 ####[facility] [address] [place], [address] UR TOTAL VOLUME 1725 mL Normal [facility] Comment on above: Performed By: #### L 502.000, L500.9000 ####[facility] [address] [place], [address] Emergency Department Summary on 04-15-2024 Emergency Department Summary Normal [facility] 12 Lead EKGon 04-14-2024 12 Lead EKG Normal [facility] Basic Metabolic Profile (BMP )on 04-14-2024 BUN/CRE 12.4 RATIO Normal 10-20 [facility] Comment on above: Order Comment: 'TROP ' Serial specimen #1, #2 or #3: 1 Performed By: #### L 501.4020, L100.0100, L500.2500, L501.5200 ####[facility] [address] [place], [address] CA,Total 8.8 mg/dL Normal 8.5-10.1 [facility] Comment on above: Order Comment: 'TROP ' Serial specimen #1, #2 or #3: 1 Performed By: #### L 501.4020, L100.0100, L500.2500, L501.5200 ####[facility] [address] [place], [address] Chloride [Moles/Vol] 102 mmol/L Normal 98-107 [facility] Comment on above: Order Comment: 'TROP ' Serial specimen #1, #2 or #3: 1 Performed By: #### L 501.4020, L100.0100, L500.2500, L501.5200 ####[facility] [address] [place], [address] CO2 [Moles/Vol] 38.0 mmol/L High 21.0-32.0 [facility] Comment on above: Order Comment: 'TROP ' Serial specimen #1, #2 or #3: 1 Performed By: #### L 501.4020, L100.0100, L500.2500, L501.5200 ####[facility] [address] [place], [address] Creatinine [Mass/Vol] 2.42 mg/dL High 0.55-1.02 [facility] Comment on above: Order Comment: 'TROP ' Serial specimen #1, #2 or #3: 1 Result Comment: The validity of the calculated GFR GFRAA in patients over70 years has not been determined. Clinical correlation isessential. Performed By: #### L 501.4020, L100.0100, L500.2500, L501.5200 ####[facility] [address] [place], [address] ECRCL 15.74 ml/min Normal [facility] Comment on above: Order Comment: 'TROP ' Serial specimen #1, #2 or #3: 1 Performed By: #### L 501.4020, L100.0100, L500.2500, L501.5200 ####[facility] [address] [place], [address] EST GFR - AA 26 mL/min Low >60 [facility] Comment on above: Order Comment: 'TROP ' Serial specimen #1, #2 or #3: 1 Result Comment: Afri can Turkish GFR Calc Performed By: #### L 501.4020, L100.0100, L500.2500, L501.5200 ####[facility] [address] [place], [address] GAP 0 Low 5-15 [facility] Comment on above: Order Comment: 'TROP ' Serial specimen #1, #2 or #3: 1 Performed By: #### L 501.4020, L100.0100, L500.2500, L501.5200 ####[facility] [address] [place], [address] GFR/1.73 sq M.predicted among non-blacks MDRD (S/P/Bld) [Vol rate/Area] 21 mL/min/{1.73_m2} Low >60 [facility] Comment on above: Order Comment: 'TROP ' Serial specimen #1, #2 or #3: 1 Result Comment: Non- GFR Calc Performed By: #### L 501.4020, L100.0100, L500.2500, L501.5200 ####[facility] [address] [place], [address] Glucose [Mass/Vol] 187 mg/dL High 74-106 [facility] Comment on above: Order Comment: 'TROP ' Serial specimen #1, #2 or #3: 1 Result Comment: Fast ing Glucose result greater than or equal to 126 mg/dLsuggests DIABETES MELLITUS per A.D.A. criteria. Performed By: #### L 501.4020, L100.0100, L500.2500, L501.5200 ####[facility] [address] [place], [address] Potassium [Moles/Vol] 4.6 mmol/L Normal 3.5-5.1 [facility] Comment on above: Order Comment: 'TROP ' Serial specimen #1, #2 or #3: 1 Performed By: #### L 501.4020, L100.0100, L500.2500, L501.5200 ####[facility] [address] [place], [address] Sodium [Moles/Vol] 140 mmol/L Normal 136-145 [facility] Comment on above: Order Comment: 'TROP ' Serial specimen #1, #2 or #3: 1 Performed By: #### L 501.4020, L100.0100, L500.2500, L501.5200 ####[facility] [address] [place], [address] Urea nitrogen [Mass/Vol] 30 mg/dL High 7-18 [facility] Comment on above: Order Comment: 'TROP ' Serial specimen #1, #2 or #3: 1 Performed By: #### L 501.4020, L100.0100, L500.2500, L501.5200 ####[facility] [address] [place], [address] CBC W/Diff, Automatedon 04-03 Absolute Lymph 1.20 X10 3/uL Normal 0.83-4.51 [facility] Comment on above: Performed By: #### L 501.4020, L100.0100, L500.2500, L501.5200 ####[facility] [address] [place], [address] Absolute Neut 2.6 X10 3/uL Normal 2.0-7.7 [facility] Comment on above: Performed By: #### L 501.4020, L100.0100, L500.2500, L501.5200 ####[facility] [address] [place], [address] Basophils/100 WBC (Bld) 1.1 % High 0-1 [facility] Comment on above: Performed By: #### L 501.4020, L100.0100, L500.2500, L501.5200 ####[facility] [address] [place], [address] Eosinophils/100 WBC (Bld) 5.0 % Normal 0-5 [facility] Comment on above: Performed By: #### L 501.4020, L100.0100, L500.2500, L501.5200 ####[facility] [address] [place], [address] Erythrocyte distribution width (RBC) [Ratio] 12.7 % Normal 11.6-14.6 [facility] Comment on above: Performed By: #### L 501.4020, L100.0100, L500.2500, L501.5200 ####[facility] [address] [place], [address] Hematocrit (Bld) [Volume fraction] 28.2 % Low 37-47 [facility] Comment on above: Performed By: #### L 501.4020, L100.0100, L500.2500, L501.5200 ####[facility] [address] [place], [address] Hemoglobin (Bld) [Mass/Vol] 8.4 g/dL Low 12.0-15.0 [facility] Comment on above: Performed By: #### L 501.4020, L100.0100, L500.2500, L501.5200 ####[facility] [address] [place], [address] IG% 0.200 Normal 0.0-0.9 [facility] Comment on above: Result Comment: IG% - Immature Granulocytes (promyelocytes, myelocytes andmetamyelocytes) > 1% indicates that a LEFT SHIFT is Present. Performed By: #### L 501.4020, L100.0100, L500.2500, L501.5200 ####[facility] [address] [place], [address] Lymphocytes/100 WBC (Bld) 27.1 % Normal 19-41 [facility] Comment on above: Performed By: #### L 501.4020, L100.0100, L500.2500, L501.5200 ####[facility] [address] [place], [address] MCH (RBC) [Entitic mass] 28.9 pg Normal 27.0-32.0 [facility] Comment on above: Performed By: #### L 501.4020, L100.0100, L500.2500, L501.5200 ####[facility] [address] [place], [address] MCHC (RBC) [Mass/Vol] 29.8 g/dL Low 32-36 [facility] Comment on above: Performed By: #### L 501.4020, L100.0100, L500.2500, L501.5200 ####[facility] [address] [place], [address] MCV (RBC) [Entitic vol] 96.9 fL Normal 81-99 [facility] Comment on above: Performed By: #### L 501.4020, L100.0100, L500.2500, L501.5200 ####[facility] [address] [place], [address] Monocytes/100 WBC (Bld) 7.9 % Normal 0-10 [facility] Comment on above: Performed By: #### L 501.4020, L100.0100, L500.2500, L501.5200 ####[facility] [address] [place], [address] Neutrophils/100 WBC (Bld) 58.7 % Normal 47-70 [facility] Comment on above: Performed By: #### L 501.4020, L100.0100, L500.2500, L501.5200 ####[facility] [address] [place], [address] Nucleated RBC (Bld) [#/Vol] 0 10*3/uL Normal 0-5 [facility] Comment on above: Performed By: #### L 501.4020, L100.0100, L500.2500, L501.5200 ####[facility] [address] [place], [address] Platelet mean volume (Bld) [Entitic vol] 10.5 fL Normal 6.2-12.0 [facility] Comment on above: Performed By: #### L 501.4020, L100.0100, L500.2500, L501.5200 ####[facility] [address] [place], [address] Platelets (Bld) [#/Vol] 126 10*3/uL Low 150-450 [facility] Comment on above: Performed By: #### L 501.4020, L100.0100, L500.2500, L501.5200 ####[facility] [address] [place], [address] RBC (Bld) [#/Vol] 2.91 10*6/uL Low 4.2-5.4 [facility] Comment on above: Performed By: #### L 501.4020, L100.0100, L500.2500, L501.5200 ####[facility] [address] [place], [address] RDW SD 45.0 fl High 35.1-43.9 [facility] Comment on above: Performed By: #### L 501.4020, L100.0100, L500.2500, L501.5200 ####[facility] [address] [place], [address] WBC (Bld) [#/Vol] 4.4 10*3/uL Normal 4.4-11.0 [facility] Comment on above: Performed By: #### L 501.4020, L100.0100, L500.2500, L501.5200 ####[facility] [address] [place], [address] Chest PA and Lateralon 04-14 Chest PA and Lateral Normal [facility] Endocrinology Visit Reporton 04-14-2024 Endocrinology Visit Report Normal [facility] L501.4020on 04-14-2024 TROPONIN-I HS 20 pg/mL Normal 3.0-54.0 [facility] Comment on above: Order Comment: 'TROP ' Serial specimen #1, #2 or #3: 1 Result Comment: Ry adhikari Note: New Test Units and Gender Specific Reference Ranges. For more information see Policy Stat Procedure [place] High Sensitivity Troponin (TNIH) and attachments. Performed By: #### L 501.4020, L100.0100, L500.2500, L501.5200 ####[facility] [address] [place], [address] Magnesiumon 04-14-2024 Magnesium [Mass/Vol] 1.6 mg/dL Normal 1.6-2.6 [facility] Comment on above: Order Comment: 'TROP ' Serial specimen #1, #2 or #3: 1 Performed By: #### L 501.4020, L100.0100, L500.2500, L501.5200 ####[facility] [address] [place], [address] Basophil percentageOrdered B y: Christy Huerta on 01-15-2024 Basophil percentage 3.7 mg/dL 2.5-4.9 [facility] Bilirubin [Mass/Vol] 0.50 mg/dL 0.20-1.00 [facility] Comment on above: For patients on eltr ombopag therapy, use of Dimension [place] TBIL is not recommended. Chloride [Moles/Vol] 105 mmol/L 98-107 [facility] Cholesterol [Mass/Vol] 145 mg/dL <200 [facility] Comment on above: <200 mg/dL Desirable 200-240 mg/dL Borderline >240 mg/dL High Risk Glucose [Mass/Vol] 180 mg/dL 74-106 [facility] Comment on above: Fasting Glucose resu lt greater than or equal to 126 mg/dL suggests DIABETES MELLITUS per A.D.A. criteria. Hemoglobin (Bld) [Mass/Vol] 11.4 g/dL 12.0-15.0 [facility] Potassium [Moles/Vol] 4.8 mmol/L 3.5-5.1 [facility] Protein [Mass/Vol] 6.8 g/dL 6.4-8.2 [facility] Sodium [Moles/Vol] 140 mmol/L 136-145 [facility] Triglyceride [Mass/Vol] 132 mg/dL <199 [facility] Comment on above: The drugs N-Acetylcy steine and Metamizole may falsely depress this assay.Serum Triglycerides Reference Interval Normal <150 mg/dL Borderline high 150 - 199 mg/dL High 200 - 499 mg/dL Very High > or = 500 mg/dL WBC (Bld) [#/Vol] 6.9 10*3/uL 4.4-11.0 [facility] Determination of erythrocyte mean corpuscular volume (MCV)Ordered By: Christy Huerta on 01-15-2024 MCV (RBC) [Entitic vol] 95.9 fL 81-99 [facility] Direct bilirubinOrdered By: Christy Huerta on 01-15-2024 Bilirubin.direct [Mass/Vol] 0.10 mg/dL 0.00-0.30 [facility] Erythrocyte distribution wid th ratioOrdered By: Christy Huerta on 01-15-2024 Erythrocyte distribution width (RBC) [Ratio] 12.3 % 11.6-14.6 [facility] Erythrocyte distribution wid th standard deviationOrdered By: Christy Huerta on 01-15-2024 Erythrocyte distribution width (RBC) [Entitic vol] 43.2 fL 35.1-43.9 [facility] Hematocrit Auto (Bld) [Volum e fraction]Ordered By: Christy Huerta on 01-15-2024 Hematocrit (Bld) [Volume fraction] 37.6 % 37-47 [facility] - Chemistry and C hemistry - challengeOrdered By: Christy Huerta on 01-15-2024 Albumin/Globulin [Mass ratio] 0.9 {ratio} 0.9-2.4 [facility] ALP [Catalytic activity/Vol] 82 U/L 45-117 [facility] ALT [Catalytic activity/Vol] 14 U/L 13-56 [facility] Cholesterol in HDL [Mass/Vol] 59 mg/dL >40 [facility] Comment on above: The drugs N-Acetylcy steine and Metamizole may falsely depress this assay. Reference Range HDL <40 mg/dL Low HDL Cholesterol HDL >or= 60 mg/dL High HDL Cholesterol Cholesterol in LDL [Mass/Vol] 60 mg/dL 0-130 [facility] CO2 [Moles/Vol] 31.0 mmol/L 21.0-32.0 [facility] Cobalamin (Vitamin B12) [Mass/Vol] 753 pg/mL 211-911 [facility] Globulin (S) [Mass/Vol] 3.5 g/dL 2.2-4.2 [facility] Urea nitrogen/Creatinine [Mass ratio] 11.8 mg/mg 10-20 [facility] - Hematology and Cell countsOrdered By: Christy Huerta on 01-15-2024 MCH (RBC) [Entitic mass] 29.1 pg 27.0-32.0 [facility] MCHC (RBC) [Mass/Vol] 30.3 g/dL 32-36 [facility] Platelet mean volume (Bld) [Entitic vol] 10.6 fL 6.2-12.0 [facility] Platelets (Bld) [#/Vol] 188 10*3/uL 150-450 [facility] No Panel InformationOrdered By: Christy Huerta on 01-15-2024 Estimated GFR (MDRD) Amer 22 mL/min >60 [facility] Comment on above: GFR Calc Estimated GFR (MDRD) Non-Af Amer 18 mL/min >60 [facility] Comment on above: Non- GFR Calc Parathyroid Hormone (Intact) 137.2 pg/mL 18.4-80.1 [facility] VLDL Cholesterol 26 mg/dL 5-40 [facility] RBC Auto (Bld) [#/Vol]Ordere d By: Christy Huerta on 01-15-2024 RBC (Bld) [#/Vol] 3.92 10*6/uL 4.2-5.4 [facility] Serum or plasma calcium lesly urement (mass/volume)Ordered By: Christy Huerta on 01-15-2024 Calcium [Mass/Vol] 9.1 mg/dL 8.5-10.1 [facility] Serum or plasma creatinine m easurement (mass/volume)Ordered By: Christy Huerta on 01-15-2024 Creatinine [Mass/Vol] 2.79 mg/dL 0.55-1.02 [facility] Comment on above: The validity of the calculated GFR & GFRAA in patients over 70 years has not been determined. Clinical correlation is essential. Serum or plasma thyroid stim ulating hormone (TSH) measurement (units/volume)Ordered By: Christy Huerta on 01-15-2024 TSH Qn 2.34 uIU/mL 0.358-3.74 [facility] Serum or plasma urea nitroge n measurement (mass/volume)Ordered By: Christy Huerta on 01-15-2024 Urea nitrogen [Mass/Vol] 33 mg/dL 7-18 [facility] Thin prep Papanicolaou smear with manual screeningOrdered By: Christy Huerta on 01-15-2024 Thin prep Papanicolaou smear with manual screening 3.3 g/dL 3.2-5.0 [facility] Thin prep Papanicolaou smear with manual screening 16 U/L 15-37 [facility] Thin prep Papanicolaou smear with manual screening 4 5-15 [facility] - Hematology and Cell countson 12-03-2023 HbA1c (Bld) [Mass fraction] 8.6 % 4.2-6.3 [facility] Basophil percentageOrdered B y: Christy Huerta on 11-18-2023 Basophil percentage 3.3 mg/dL 2.5-4.9 [facility] Chloride [Moles/Vol] 108 mmol/L 98-107 [facility] Glucose [Mass/Vol] 359 mg/dL 74-106 [facility] Comment on above: Glucose result great er than or equal to 200 mg/dLsuggests DIABETES MELLITUS per A.D.A. criteria. Potassium [Moles/Vol] 5.6 mmol/L 3.5-5.1 [facility] Sodium [Moles/Vol] 139 mmol/L 136-145 [facility] Laboratory - Chemistry and C hemistry - challengeOrdered By: Christy Huerta on 11-18-2023 CO2 [Moles/Vol] 27.0 mmol/L 21.0-32.0 [facility] Urea nitrogen/Creatinine [Mass ratio] 18.5 mg/mg 10-20 [facility] No Panel InformationOrdered By: Christy Huerta on 11-18-2023 Estimated GFR (MDRD) Amer 22 mL/min >60 [facility] Comment on above: GFR Calc Estimated GFR (MDRD) Non-Af Amer 19 mL/min >60 [facility] Comment on above: Non- GFR Calc Serum or plasma calcium lesly urement (mass/volume)Ordered By: Christy Huerta on 11-18-2023 Calcium [Mass/Vol] 8.8 mg/dL 8.5-10.1 [facility] Serum or plasma creatinine m easurement (mass/volume)Ordered By: Christy Huerta on 11-18-2023 Creatinine [Mass/Vol] 2.75 mg/dL 0.55-1.02 [facility] Comment on above: The validity of the calculated GFR & GFRAA in patients over 70 years has not been determined. Clinical correlation is essential. Serum or plasma urea nitroge n measurement (mass/volume)Ordered By: Christy Huerta on 11-18-2023 Urea nitrogen [Mass/Vol] 51 mg/dL 7-18 [facility] Thin prep Papanicolaou smear with manual screeningOrdered By: Christy Huerta on 11-18-2023 Thin prep Papanicolaou smear with manual screening 2.9 g/dL 3.2-5.0 [facility] Bacteria identified Respirat ory culture Nom (Unsp spec)Ordered By: Jeanna Davis on 10-29-2023 Respiratory Culture Pseudomonas aeruginosa [facility] Respiratory Culture Staphylococcus aureus [facility] Respiratory Culture Pseudomonas aeruginosa [facility] Respiratory Culture Staphylococcus aureus [facility] Gram stain for investigation of transfusion reactionOrdered By: Jeanna Davis on 10-29-2023 Microscopic observation Gram stain Nom (Unsp spec) [facility] Microscopic observation Gram stain Nom (Unsp spec) [facility] 24 hour urine protein measur ement (mass/time)Ordered By: Christy Huerta on 10-13-2023 Protein (24H U) [Mass/Time] 2213.8 mg/24HR 0-151 [facility] 24 hour urine protein measur ement (mass/volume)Ordered By: Christy Huerta on 10-13-2023 Protein (24H U) [Mass/Vol] 177.1 mg/dL 0.0-11.8 [facility] Creatinine clearanceOrdered By: Christy Huerta on 10-13-2023 Creatinine renal clearance Unsp time (U+S/P) [Vol/Time] 21 ml/min 100-200 [facility] Culture, urineOrdered By: Aashish Huerta on 10-13-2023 Bacteria identified Cx Nom (U) Culture exhibits no growth. [facility] Bacteria identified Cx Nom (U) Culture exhibits no growth. [facility] - Specimen inform ationOrdered By: Christy Huerta on 10-13-2023 Collection duration (U) 24.0 HOURS 24.0-24.0 [facility] Comment on above: *Additional results available. Contact laboratory/see report* No Panel InformationOrdered By: Christy Huerta on 10-13-2023 Estimated GFR (MDRD) Amer 25 mL/min >60 [facility] Comment on above: GFR Calc Estimated GFR (MDRD) Non-Af Amer 21 mL/min >60 [facility] Comment on above: Non- GFR Calc Timed Urine Volume 1250 mL [facility] Comment on above: *Additional results available. Contact laboratory/see report* Thin prep Papanicolaou smear with manual screeningOrdered By: Christy Huerta on 10-13-2023 Creatinine (U) [Mass/Vol] 2.5 mg/dL 0.6-1.0 [facility] Urine creatinine measurement (mass/volume)Ordered By: Christy uHerta on 10-13-2023 Creatinine (U) [Mass/Vol] 61.4 mg/dL NO RANGE EST. [facility] Basophil percentageOrdered B y: Christy Huerta on 10-09-2023 Basophil percentage 10-25 SEEN /hpf 0-5 [facility] Bilirubin Test strip Ql (U)O rdered By: Christy Huerta on 10-09-2023 Bilirubin Ql (U) Negative Negative [facility] Ketones Test strip Ql (U)Ord ered By: Christy Huerta on 10-09-2023 Ketones Ql (U) Negative Negative [facility] Mucus LM Ql (Urine sed)Order ed By: Christy Huerta on 10-09-2023 Mucus Ql (Urine sed) 0 SEEN /hpf [facility] Nitrite Test strip Ql (U)Ord ered By: Christy Huerta on 10-09-2023 Nitrite Ql (U) Negative Negative [facility] Protein Test strip Ql (U)Ord ered By: Christy Huerta on 10-09-2023 Protein Ql (U) 100 mg/dl Negative [facility] Squamous epithelial cells de tection in urine sediment by light microscopyOrdered By: Christy Huerta on 10-09-2023 Epithelial cells.squamous LM Ql (Urine sed) 0-5 SEEN /hpf 5-10 [facility] Urine blood detectionOrdered By: Christy Huerta on 10-09-2023 RBC Ql (U) 10 /ul Negative [facility] RBC Ql (U) 0-5 SEEN /hpf 0-5 [facility] Urine clarityOrdered By: Malcolm Huerta on 10-09-2023 Clarity (U) Sl. Cloudy Clear [facility] Urine color determinationOrd ered By: Christy Huerta on 10-09-2023 Color (U) Yellow Yellow [facility] Urine glucose detectionOrder ed By: Christy Huerta on 10-09-2023 Glucose Ql (U) 250 mg/dl Normal [facility] Urine leukocyte esterase det ection by dipstickOrdered By: Christy Huerta on 10-09-2023 Leukocyte esterase Test strip Ql (U) 100 /ul Negative [facility] Urine pHOrdered By: Mary Huerta on 10-09-2023 pH (U) 5.0 [pH] 5.0 - 8.0 [facility] Urine sediment bacteria coun t by microscopy (number/high power field)Ordered By: Christy Huerta on 10-09-2023 Bacteria LM.HPF (Urine sed) [#/Area] 0 /[HPF] None Seen [facility] Urine specific gravity measu rementOrdered By: Christy Huerta on 10-09-2023 Specific gravity (U) [Rel density] 1.015 1.002-1.030 [facility] Urobilinogen Auto test strip Ql (U)Ordered By: Christy Huerta on 10-09-2023 Urobilinogen Ql (U) Normal mg/dl Normal [facility] Basophil percentageOrdered B y: Christy Huerta on 10-06-2023 Basophil percentage 2.9 mg/dL 2.5-4.9 [facility] Chloride [Moles/Vol] 104 mmol/L 98-107 [facility] Glucose [Mass/Vol] 273 mg/dL 74-106 [facility] Comment on above: Glucose result great er than or equal to 200 mg/dLsuggests DIABETES MELLITUS per A.D.A. criteria. Potassium [Moles/Vol] 4.8 mmol/L 3.5-5.1 [facility] Sodium [Moles/Vol] 139 mmol/L 136-145 [facility] WBC (Bld) [#/Vol] 10.3 10*3/uL 4.4-11.0 [facility] Blood erythrocytes count (nu mber/volume)Ordered By: Christy Huerta on 10-06-2023 RBC (Bld) [#/Vol] 3.48 10*6/uL 4.2-5.4 [facility] Blood hemoglobin measurement (mass/volume)Ordered By: Christy Huerta on 10-06-2023 Hemoglobin (Bld) [Mass/Vol] 10.5 g/dL 12.0-15.0 [facility] Blood platelet mean volumeOr dered By: Christy Huerta on 10-06-2023 Platelet mean volume (Bld) [Entitic vol] 10.5 fL 6.2-12.0 [facility] Determination of erythrocyte mean corpuscular volume (MCV)Ordered By: Christy Huerta on 10-06-2023 MCV (RBC) [Entitic vol] 99.1 fL 81-99 [facility] Hematocrit Auto (Bld) [Volum e fraction]Ordered By: Christy Huerta on 10-06-2023 Hematocrit (Bld) [Volume fraction] 34.5 % 37-47 [facility] - Chemistry and C hemistry - challengeOrdered By: Christy Huerta on 10-06-2023 CO2 [Moles/Vol] 30.0 mmol/L 21.0-32.0 [facility] Urea nitrogen/Creatinine [Mass ratio] 13.7 mg/mg 10-20 [facility] - Hematology and Cell countsOrdered By: Christy Huerta on 10-06-2023 Erythrocyte distribution width (RBC) [Entitic vol] 45.4 fL 35.1-43.9 [facility] Erythrocyte distribution width (RBC) [Ratio] 12.6 % 11.6-14.6 [facility] MCH (RBC) [Entitic mass] 30.2 pg 27.0-32.0 [facility] MCHC Auto (RBC) [Mass/Vol]Or dered By: Christy Huerta on 10-06-2023 MCHC (RBC) [Mass/Vol] 30.4 g/dL 32-36 [facility] No Panel InformationOrdered By: Christy Huerta on 10-06-2023 Estimated GFR (MDRD) Amer 26 mL/min >60 [facility] Comment on above: GFR Calc Estimated GFR (MDRD) Non-Af Amer 22 mL/min >60 [facility] Comment on above: Non- GFR Calc Parathyroid Hormone (Intact) 53.6 pg/mL 18.4-80.1 [facility] Platelets bldOrdered By: Malcolm Huerta on 10-06-2023 Platelets (Bld) [#/Vol] 180 10*3/uL 150-450 [facility] Serum or plasma albumin lesly urement (mass/volume)Ordered By: Christy Huerta on 10-06-2023 Albumin [Mass/Vol] 2.9 g/dL 3.2-5.0 [facility] Serum or plasma calcium lesly urement (mass/volume)Ordered By: Christy Huerta on 10-06-2023 Calcium [Mass/Vol] 9.1 mg/dL 8.5-10.1 [facility] Serum or plasma creatinine m easurement (mass/volume)Ordered By: Christy Huerta on 10-06-2023 Creatinine [Mass/Vol] 2.41 mg/dL 0.55-1.02 [facility] Comment on above: The validity of the calculated GFR & GFRAA in patients over 70 years has not been determined. Clinical correlation is essential. Serum or plasma urea nitroge n measurement (mass/volume)Ordered By: Christy Huerta on 10-06-2023 Urea nitrogen [Mass/Vol] 33 mg/dL 7-18 [facility] Urine creatinine measurement (mass/volume)Ordered By: Christy Huerta on 10-06-2023 Creatinine (U) [Mass/Vol] 65.00 mg/dL NO RANGE EST. [facility] Urine protein measurement (m ass/volume)Ordered By: Christy Huerta on 10-06-2023 Protein (U) [Mass/Vol] 229.6 mg/dL 0.0-11.8 [facility] Urine protein/creatinine mas s ratioOrdered By: Christy Huerta on 10-06-2023 Protein/Creatinine (U) [Mass ratio] 3532 mg/g CRE 0-200 [facility] Laboratory - Hematology and Cell countson 07-14-2023 HbA1c (Bld) [Mass fraction] 8.7 % 4.2-6.3 [facility] Basophil percentageOrdered B y: Christy Huerta on 06-19-2023 Basophil percentage 3.3 mg/dL 2.5-4.9 [facility] Chloride [Moles/Vol] 107 mmol/L 98-107 [facility] Glucose [Mass/Vol] 251 mg/dL 74-106 [facility] Comment on above: Glucose result great er than or equal to 200 mg/dLsuggests DIABETES MELLITUS per A.D.A. criteria. Potassium [Moles/Vol] 5.4 mmol/L 3.5-5.1 [facility] Sodium [Moles/Vol] 140 mmol/L 136-145 [facility] Laboratory - Chemistry and C hemistry - challengeOrdered By: Christy Huerta on 06-19-2023 CO2 [Moles/Vol] 32.0 mmol/L 21.0-32.0 [facility] Urea nitrogen/Creatinine [Mass ratio] 14.5 mg/mg 10-20 [facility] No Panel InformationOrdered By: Christy Huerta on 06-19-2023 Estimated GFR (MDRD) Amer 27 mL/min >60 [facility] Comment on above: GFR Calc Estimated GFR (MDRD) Non-Af Amer 22 mL/min >60 [facility] Comment on above: Non- GFR Calc Parathyroid Hormone (Intact) 118.0 pg/mL 18.4-80.1 [facility] Serum or plasma albumin lesly urement (mass/volume)Ordered By: Christy Huerta on 06-19-2023 Albumin [Mass/Vol] 3.0 g/dL 3.2-5.0 [facility] Serum or plasma calcium lesly urement (mass/volume)Ordered By: Christy Huerta on 06-19-2023 Calcium [Mass/Vol] 8.4 mg/dL 8.5-10.1 [facility] Serum or plasma creatinine m easurement (mass/volume)Ordered By: Christy Huerta on 06-19-2023 Creatinine [Mass/Vol] 2.34 mg/dL 0.55-1.02 [facility] Comment on above: The validity of the calculated GFR & GFRAA in patients over 70 years has not been determined. Clinical correlation is essential. Serum or plasma urea nitroge n measurement (mass/volume)Ordered By: Christy Huerta on 06-19-2023 Urea nitrogen [Mass/Vol] 34 mg/dL 7-18 [facility] Urine creatinine measurement (mass/volume)Ordered By: Christy Huerta on 06-19-2023 Creatinine (U) [Mass/Vol] 85.10 mg/dL NO RANGE EST. [facility] Urine protein measurement (m ass/volume)Ordered By: Christy Huerta on 06-19-2023 Protein (U) [Mass/Vol] 247.0 mg/dL 0.0-11.8 [facility] Urine protein/creatinine mas s ratioOrdered By: Christy Huerta on 06-19-2023 Protein/Creatinine (U) [Mass ratio] 2902 mg/g CRE 0-200 [facility] Basophil percentageOrdered B y: Sin Lujan on 03-17-2023 Basophil percentage 3.4 mg/dL 2.5-4.9 [facility] Chloride [Moles/Vol] 100 mmol/L 98-107 [facility] Glucose [Mass/Vol] 151 mg/dL 74-106 [facility] Comment on above: Fasting Glucose resu lt greater than or equal to 126 mg/dL suggests DIABETES MELLITUS per A.D.A. criteria. Potassium [Moles/Vol] 5.1 mmol/L 3.5-5.1 [facility] Sodium [Moles/Vol] 137 mmol/L 136-145 [facility] Laboratory - Chemistry and C hemistry - challengeOrdered By: Sin Lujan on 03-17-2023 CO2 [Moles/Vol] 32.0 mmol/L 21.0-32.0 [facility] Magnesium [Mass/Vol] 2.5 mg/dL 1.6-2.6 [facility] Urea nitrogen/Creatinine [Mass ratio] 16.1 mg/mg 10-20 [facility] No Panel InformationOrdered By: Sin Lujan on 03-17-2023 Estimated GFR (MDRD) Amer 24 mL/min >60 [facility] Comment on above: GFR Calc Estimated GFR (MDRD) Non-Af Amer 20 mL/min >60 [facility] Comment on above: Non- GFR Calc Parathyroid Hormone (Intact) 39.8 pg/mL 18.4-80.1 [facility] Serum or plasma albumin lesly urement (mass/volume)Ordered By: Sin Lujan on 03-17-2023 Albumin [Mass/Vol] 3.3 g/dL 3.2-5.0 [facility] Serum or plasma calcium lesly urement (mass/volume)Ordered By: Sin Lujan on 03-17-2023 Calcium [Mass/Vol] 9.6 mg/dL 8.5-10.1 [facility] Serum or plasma creatinine m easurement (mass/volume)Ordered By: Sin Lujan on 03-17-2023 Creatinine [Mass/Vol] 2.61 mg/dL 0.55-1.02 [facility] Comment on above: The validity of the calculated GFR & GFRAA in patients over 70 years has not been determined. Clinical correlation is essential. Serum or plasma urea nitroge n measurement (mass/volume)Ordered By: Sin Lujan on 03-17-2023 Urea nitrogen [Mass/Vol] 42 mg/dL 7-18 [facility] Urine creatinine measurement (mass/volume)Ordered By: Sin Lujan on 03-17-2023 Creatinine (U) [Mass/Vol] 29.80 mg/dL NO RANGE EST. [facility] Urine protein measurement (m ass/volume)Ordered By: Sin Lujan on 03-17-2023 Protein (U) [Mass/Vol] 75.7 mg/dL 0.0-11.8 [facility] Urine protein/creatinine mas s ratioOrdered By: Sin Lujan on 03-17-2023 Protein/Creatinine (U) [Mass ratio] 2540 mg/g CRE 0-200 [facility] Basophil percentageOrdered B y: Dr. Lujan on 02-26-2023 Basophil percentage 4.1 mg/dL 2.5-4.9 [facility] Bilirubin [Mass/Vol] 0.40 mg/dL 0.20-1.00 [facility] Comment on above: For patients on eltr ombopag therapy, use of Dimension [place] TBIL is not recommended. Chloride [Moles/Vol] 105 mmol/L 98-107 [facility] Glucose [Mass/Vol] 270 mg/dL 74-106 [facility] Comment on above: Glucose result great er than or equal to 200 mg/dLsuggests DIABETES MELLITUS per A.D.A. criteria. Potassium [Moles/Vol] 5.0 mmol/L 3.5-5.1 [facility] Protein [Mass/Vol] 6.9 g/dL 6.4-8.2 [facility] Sodium [Moles/Vol] 134 mmol/L 136-145 [facility] WBC (Bld) [#/Vol] 5.6 10*3/uL 4.4-11.0 [facility] Blood erythrocytes count (nu mber/volume)Ordered By: Dr. Lujan on 02-26-2023 RBC (Bld) [#/Vol] 4.10 10*6/uL 4.2-5.4 [facility] Blood hemoglobin measurement (mass/volume)Ordered By: Dr. Lujan on 02-26-2023 Hemoglobin (Bld) [Mass/Vol] 12.1 g/dL 12.0-15.0 [facility] Blood platelet mean volumeOr dered By: Dr. Lujan on 02-26-2023 Platelet mean volume (Bld) [Entitic vol] 10.2 fL 6.2-12.0 [facility] Determination of erythrocyte mean corpuscular volume (MCV)Ordered By: Dr. Lujan on 02-26-2023 MCV (RBC) [Entitic vol] 95.9 fL 81-99 [facility] Hematocrit Auto (Bld) [Volum e fraction]Ordered By: Dr. Lujan on 02-26-2023 Hematocrit (Bld) [Volume fraction] 39.3 % 37-47 [facility] Laboratory - Chemistry and C hemistry - challengeOrdered By: Dr. Lujan on 02-26-2023 ALP [Catalytic activity/Vol] 88 U/L 45-117 [facility] ALT [Catalytic activity/Vol] 16 U/L 13-56 [facility] CO2 [Moles/Vol] 26.0 mmol/L 21.0-32.0 [facility] Globulin (S) [Mass/Vol] 3.8 g/dL 2.2-4.2 [facility] Urea nitrogen/Creatinine [Mass ratio] 17.7 mg/mg 10-20 [facility] Laboratory - Hematology and Cell countsOrdered By: Dr. Lujan on 02-26-2023 Erythrocyte distribution width (RBC) [Entitic vol] 49.3 fL 35.1-43.9 [facility] Erythrocyte distribution width (RBC) [Ratio] 14.0 % 11.6-14.6 [facility] MCH (RBC) [Entitic mass] 29.5 pg 27.0-32.0 [facility] MCHC Auto (RBC) [Mass/Vol]Or dered By: Dr. Lujan on 02-26-2023 MCHC (RBC) [Mass/Vol] 30.8 g/dL 32-36 [facility] No Panel InformationOrdered By: Dr. Lujan on 02-26-2023 Estimated GFR (MDRD) Amer 29 mL/min >60 [facility] Comment on above: GFR Calc Estimated GFR (MDRD) Non-Af Amer 24 mL/min >60 [facility] Comment on above: Non- GFR Calc Thyroid Stimulating Hormone (TSH) 2.30 uIU/mL 0.358-3.74 [facility] Vitamin D 25-Hydroxy 54.6 ng/mL [facility] Comment on above: Vitamin D 25(OH) Sta tus Range Deficiency <20 ng/mL (50nmol/L) Insufficiency 20 - 30 ng/mL (50 - 75 nmol/L) Sufficiency 30 - 100 ng/mL (75 - 250 nmol/L) Toxicity >100 ng/mL (>250 nmol/L) No Panel InformationOrdered By: Dr. Huerta on 02-26-2023 Parathyroid Hormone (Intact) 110.4 pg/mL 18.4-80.1 [facility] Platelets bldOrdered By: Dr. Lujan on 02-26-2023 Platelets (Bld) [#/Vol] 217 10*3/uL 150-450 [facility] Serum or plasma albumin lesly urement (mass/volume)Ordered By: Dr. Lujan on 02-26-2023 Albumin [Mass/Vol] 3.1 g/dL 3.2-5.0 [facility] Serum or plasma albumin/glob ulin mass ratioOrdered By: Dr. Lujan on 02-26-2023 Albumin/Globulin [Mass ratio] 0.8 {ratio} 0.9-2.4 [facility] Serum or plasma calcium lesly urement (mass/volume)Ordered By: Dr. Lujan on 02-26-2023 Calcium [Mass/Vol] 8.7 mg/dL 8.5-10.1 [facility] Serum or plasma creatinine m easurement (mass/volume)Ordered By: Dr. Lujan on 02-26-2023 Creatinine [Mass/Vol] 2.20 mg/dL 0.55-1.02 [facility] Comment on above: The validity of the calculated GFR & GFRAA in patients over 70 years has not been determined. Clinical correlation is essential. Serum or plasma urea nitroge n measurement (mass/volume)Ordered By: Dr. Lujan on 02-26-2023 Urea nitrogen [Mass/Vol] 39 mg/dL 7-18 [facility] Thin prep Papanicolaou smear with manual screeningOrdered By: Dr. Lujan on 02-26-2023 Thin prep Papanicolaou smear with manual screening 15 U/L 15-37 [facility] Thin prep Papanicolaou smear with manual screening 3 5-15 [facility] Laboratory - Hematology and Cell countson 01-01-2023 HbA1c (Bld) [Mass fraction] 9.0 % [facility] Absolute lymphocyte counton 10-11-2022 Lymphocytes Auto (Unsp spec) [#/Vol] 2.65 10*3/uL 0.83-4.51 [facility] Work Phone: Basophil percentageon 2021 Amylase [Catalytic activity/Vol] 51 U/L 25-115 [facility] Work Phone: Basophils/100 WBC (Bld) 1.2 % 0-1 [facility] Work Phone: Bilirubin [Mass/Vol] 0.30 mg/dL 0.20-1.00 [facility] Work Phone: Comment on above: For patients on eltr ombopag therapy, use of Dimension [place] TBIL is not recommended. Chloride [Moles/Vol] 101 mmol/L 98-107 [facility] Work Phone: Cholesterol [Mass/Vol] 266 mg/dL <200 [facility] Work Phone: Comment on above: <200 mg/dL Desirable 200-240 mg/dL Borderline >240 mg/dL High Risk Eosinophils/100 WBC (Bld) 8.5 % 0-5 [facility] Work Phone: Glucose [Mass/Vol] 206 mg/dL 74-106 [facility] Work Phone: Comment on above: Glucose result great er than or equal to 200 mg/dLsuggests DIABETES MELLITUS per A.D.A. criteria. Neutrophils (Bld) [#/Vol] 3.7 10*3/uL 2.0-7.7 [facility] Work Phone: Neutrophils/100 WBC (Bld) 49.0 % 47-70 [facility] Work Phone: Potassium [Moles/Vol] 4.2 mmol/L 3.5-5.1 [facility] Work Phone: Protein [Mass/Vol] 6.9 g/dL 6.4-8.2 [facility] Work Phone: Sodium [Moles/Vol] 138 mmol/L 136-145 [facility] Work Phone: Triglyceride [Mass/Vol] 198 mg/dL <199 [facility] Work Phone: Comment on above: The drugs N-Acetylcy steine and Metamizole may falsely depress this assay.Serum Triglycerides Reference Interval Normal <150 mg/dL Borderline high 150 - 199 mg/dL High 200 - 499 mg/dL Very High > or = 500 mg/dL WBC (Bld) [#/Vol] 7.5 10*3/uL 4.4-11.0 [facility] Work Phone: Blood erythrocytes count (nu mber/volume)on 10-11-2022 RBC (Bld) [#/Vol] 4.53 10*6/uL 4.2-5.4 [facility] Work Phone: Blood hemoglobin measurement (mass/volume)on 10-11-2022 Hemoglobin (Bld) [Mass/Vol] 13.4 g/dL 12.0-15.0 [facility] Work Phone: Blood lymphocytes/100 leukoc yteson 10-11-2022 Lymphocytes/100 WBC (Bld) 35.2 % 19-41 [facility] Work Phone: Blood monocytes/100 leukocyt eson 10-11-2022 Monocytes/100 WBC (Bld) 5.8 % 0-10 [facility] Work Phone: Blood platelet mean volumeon 10-11-2022 Platelet mean volume (Bld) [Entitic vol] 10.5 fL 6.2-12.0 [facility] Work Phone: Determination of erythrocyte mean corpuscular volume (MCV)on 10-11-2022 MCV (RBC) [Entitic vol] 96.9 fL 81-99 [facility] Work Phone: Erythrocyte sedimentation ra darek 10-11-2022 ESR (Bld) [Velocity] 38 mm/h 0-30 [facility] Work Phone: Hematocrit Auto (Bld) [Volum e fraction]on 10-11-2022 Hematocrit (Bld) [Volume fraction] 43.9 % 37-47 [facility] Work Phone: INR in Blood by Coagulation assayon 10-11-2022 INR Coag (Bld) [Relative time] 0.9 {INR} [facility] Work Phone: Iron measurement (mass/mass) on 10-11-2022 Iron (Unsp spec) [Mass/Mass] 67 ug/dL 50-170 [facility] Work Phone: Laboratory - Chemistry and C hemistry - challengeon 10-11-2022 ALP [Catalytic activity/Vol] 93 U/L 45-117 [facility] Work Phone: ALT [Catalytic activity/Vol] 11 U/L 13-56 [facility] Work Phone: CO2 [Moles/Vol] 30.0 mmol/L 21.0-32.0 [facility] Work Phone: Globulin (S) [Mass/Vol] 3.8 g/dL 2.2-4.2 [facility] Work Phone: Lipase [Catalytic activity/Vol] 82 U/L 73-393 [facility] Work Phone: Urea nitrogen/Creatinine [Mass ratio] 16.2 mg/mg 10-20 [facility] Work Phone: Laboratory - Coagulationon 1 12-12-2021 aPTT Coag (Bld) [Time] 29.2 s 24.1-36.2 [place] [facility] [place]: PT Coag (PPP) [Time] 12.2 s 11.7-14.[address] [facility] [place]: Laboratory - Hematology and Cell countson 10-11-2022 Erythrocyte distribution width (RBC) [Entitic vol] 48.3 fL 35.1-43.9 [facility] Work Phone: Erythrocyte distribution width (RBC) [Ratio] 13.4 % 11.6-14.6 [facility] Work Phone: Immature granulocytes/100 WBC (Bld) 0.300 % 0.0-0.9 [facility] Work Phone: Comment on above: IG% - Immature Granu locytes (promyelocytes, myelocytes and metamyelocytes) > 1% indicates that a LEFT SHIFT is Present. MCH (RBC) [Entitic mass] 29.6 pg 27.0-32.0 [facility] Work Phone: Nucleated RBC/100 WBC (Bld) [Ratio] 0 % 0-5 [facility] Work Phone: MCHC Auto (RBC) [Mass/Vol]on 10-11-2022 MCHC (RBC) [Mass/Vol] 30.5 g/dL 32-36 [facility] Work [facility]: No Panel Informationon 10-11 Estimated GFR (MDRD) Amer 27 mL/min >60 [facility] Work Phone: Comment on above: GFR Calc Estimated GFR (MDRD) Non-Af Amer 22 mL/min >60 [facility] Work Phone: Comment on above: Non- GFR Calc Thyroid Stimulating Hormone (TSH) 1.67 uIU/mL 0.358-3.74 [facility] Work Phone: Vitamin D 25-Hydroxy 30.7 ng/mL [facility] Work Phone: Comment on above: Vitamin D 25(OH) Sta tus Range Deficiency <20 ng/mL (50nmol/L) Insufficiency 20 - 30 ng/mL (50 - 75 nmol/L) Sufficiency 30 - 100 ng/mL (75 - 250 nmol/L) Toxicity >100 ng/mL (>250 nmol/L) Platelets bldon 10-11-2022 Platelets (Bld) [#/Vol] 301 10*3/uL 150-450 [facility] Work Phone: Serum or plasma albumin lesly urement (mass/volume)on 10-11-2022 Albumin [Mass/Vol] 3.1 g/dL 3.2-5.0 [facility] Work Phone: Serum or plasma albumin/glob ulin mass ratioon 10-11-2022 Albumin/Globulin [Mass ratio] 0.8 {ratio} 0.9-2.4 [facility] Work Phone: Serum or plasma calcium lesly urement (mass/volume)on 10-11-2022 Calcium [Mass/Vol] 9.2 mg/dL 8.5-10.1 [facility] Work Phone: Serum or plasma cholesterol in HDL measurement (mass/volume)on 10-11-2022 Cholesterol in HDL [Mass/Vol] 64 mg/dL >40 [facility] Work Phone: Comment on above: The drugs N-Acetylcy steine and Metamizole may falsely depress this assay. Reference Range HDL <40 mg/dL Low HDL Cholesterol HDL >or= 60 mg/dL High HDL Cholesterol Serum or plasma cholesterol in VLDL measurement (mass/volume)on 10-11-2022 Cholesterol in VLDL [Mass/Vol] 40 mg/dL 5-40 [facility] Work Phone: Serum or plasma creatinine m easurement (mass/volume)on 10-11-2022 Creatinine [Mass/Vol] 2.35 mg/dL 0.55-1.02 [facility] Work Phone: Comment on above: The validity of the calculated GFR & GFRAA in patients over 70 years has not been determined. Clinical correlation is essential. Serum or plasma ferritin allyn surement (mass/volume)on 10-11-2022 Ferritin [Mass/Vol] 27 ng/mL 8-252 [facility] Work Phone: Serum or plasma low density lipoprotein (LDL) cholesterol measurement (mass/volume)on 10-11-2022 Cholesterol in LDL [Mass/Vol] 162 mg/dL 0-130 [facility] Work Phone: Serum or plasma urea nitroge n measurement (mass/volume)on 10-11-2022 Urea nitrogen [Mass/Vol] 38 mg/dL 7-18 [facility] Work Phone: Thin prep Papanicolaou smear with manual screeningon 10-11-2022 Thin prep Papanicolaou smear with manual screening 8 U/L 15-37 [facility] Work Phone: Thin prep Papanicolaou smear with manual screening 7 5-15 [facility] Work Phone: Laboratory - Hematology and Cell countson 07-04-2022 HbA1c (Bld) [Mass fraction] 7.2 % [facility] Work Phone: NICOTINE+METABOLITES,Son [id number] 156 ng/mL Normal [facility] Comment on above: Performed By: #### H EPFP #### [facility] [id number] [place] [address] COTININE 194 ng/mL Normal [facility] Comment on above: Performed By: #### H EPFP #### [facility] [id number] [place] [address] NICOTINE 7 ng/mL Normal [facility] Comment on above: Result Comment: Cons istent with use of a nicotine-containing product within 48 hours of specimen collection. Nicotine is metabolized to cotinine and [id number]. INTERPRETIVE INFORMATION: Nicotine and Metabolites, Serum or Plasma, Quantitative Methodology: Quantitative Liquid Chromatography-Tandem Mass Spectrometry Positive cutoff: 2 ng/mL For medical purposes only; not valid for forensic use. This test is designed to evaluate recent use of nicotine-containing products. Passive and active exposure cannot be discriminated definitively, although a cutoff of 10 ng/mL cotinine is frequently used for surgery qualification purposes. For smoking cessation programs or compliance testing, the absence of expected drug(s) and/or drug metabolite(s) may indicate non-compliance, inappropriate timing of specimen collection relative to drug administration, poor drug absorption, or limitations of testing. This test cannot distinguish between use of tobacco and purified nicotine products. The concentration value must be greater than or equal to the cutoff to be reported as positive. This test was developed and its performance characteristics determined by [employer]. It has not been cleared or approved by the [place] Food and Drug Administration. This test was performed in a CLIA certified laboratory and is intended for clinical purposes. Performed By: [employer] [address] [place] [id number] [employer] Model: Fabrizio Cruz MD, PhD Performed By: #### H EPFP #### [facility] [address] [place] [id number] DRUG-PROFILE 9,BLOOD WITH RE FLEX TO CONFIRMATIONon 05-31-2022 AMPHETAMINES SCREEN Negative Normal Cutoff 20 [facility] Comment on above: Performed By: #### H EPFP #### [facility] [id number] [place] [address] BARBITURATES SCREEN Negative Normal Cutoff 50 [facility] Comment on above: Performed By: #### H EPFP #### [facility] [id number] [place] [address] BENZODIAZEPINES SCREEN Negative Normal Cutoff 50 [facility] Comment on above: Performed By: #### H EPFP #### [facility] [id number] [place] [address] BUPRENORPHINE SCREEN Negative Normal Cutoff 1 [facility] Comment on above: Performed By: #### H EPFP #### [facility] [address] [place] [address] CANNABINOID SCREEN Negative Normal Cutoff 20 [facility] Comment on above: Performed By: #### H EPFP #### [facility] [address] [place] [address] COCAINE SCREEN Negative Normal Cutoff 20 [facility] Comment on above: Performed By: #### H EPFP #### [facility] [address] [place] [address] DRUG SCREEN COMMENT See Note Normal [facility] Comment on above: Result Comment: INTE RPRETIVE INFORMATION: Drug Screen 9 Panel, Serum or Plasma - Immunoassay Screen with Reflex to Mass Spectrometry Confirmation/Quantitation 1. Methodology: Qualitative Immunoassay Screen 2. Drugs/Drug classes reported as Positive are automatically reflexed to mass spectrometry confirmation/quantitation testing. An immunoassay unconfirmed positive screen result may be useful for medical purposes but does not meet forensic standards. 3. The absence of expected drug(s) and/or drug metabolite(s) may indicate noncompliance, inappropriate timing of specimen collection relative to drug administration, poor drug absorption, or limitations of testing. The concentration at which the screening test can detect a drug or metabolite varies within a drug class. Specimens for which drugs or drug classes are detected by the screen are automatically reflexed to a second, more specific technology (mass spectrometry). The concentration value must be greater than or equal to the cutoff to be reported as positive. Interpretive questions should be directed to the laboratory. 4. For medical purposes only; not valid for forensic use. This test was developed and its performance characteristics determined by [employer]. It has not been cleared or approved by the [place] Food and Drug Administration. This test was performed in a CLIA certified laboratory and is intended for clinical purposes. Performed By: [facility] [address] [place] [id number] [employer] Model: Fabrizio Cruz MD, PhD Performed By: #### H EPFP #### [facility] [address] [place] [address] METHADONE SCREEN Negative Normal Cutoff 25 [facility] Comment on above: Performed By: #### H EPFP #### [facility] [address] [place] [address] METHAMPHETAMINES SCREEN Negative Normal Cutoff 20 [facility] Comment on above: Performed By: #### H EPFP #### [facility] [address] [place] [address] OPIATE SCREEN Negative Normal Cutoff 20 [facility] Comment on above: Performed By: #### H EPFP #### [facility] [address] [place] [address] OXYCODONE SCREEN Negative Normal Cutoff 20 [facility] Comment on above: Performed By: #### H EPFP #### [facility] [id number] [place] [id number] PCP SCREEN Negative Normal Cutoff 10 [facility] [facility] Comment on above: Performed By: #### H EPFP #### [facility] [address] [place] [id number] T-SPOT TBon 05-30-2022 NIL[NEG]CONTROL SPOT COUNT Passed Normal [facility] Comment on above: Performed By: #### H EPFP #### [facility] [address] [place] [address] PANEL A SPOT COUNT 0 Normal [facility] Comment on above: Performed By: #### H EPFP #### [facility] [address] [place] [address] PANEL B SPOT COUNT 2 Normal [facility] Comment on above: Performed By: #### H EPFP #### [facility] [address] [place] [address] POS CONTROL SPOT COUNT Passed Normal [facility] Comment on above: Performed By: #### H EPFP #### [facility] [address] [place] [address] T-SPOT.TB INTERP Negative Normal Normal Value: Negative [facility] Comment on above: Result Comment: A ne gative test result does not exclude the possibility of exposure to or infection with Mycobacterium tuberculosis (M. tuberculosis). Patients with recent exposure to TB infected individuals exhibiting a negative T-SPOT.TB result should be considered for retesting within 6 weeks or if other relevant clinical symptoms indicate. Results from T-SPOT.TB testing must be used in conjunction with each individual's epidemiological history, current medical status, and results of other diagnostic evaluations. The T-SPOT.TB test is qualitative and results are reported as positive, borderline or negative, given that the test controls perform as expected. In line with the Centers for Disease Control and Prevention's 2010 recommendation to report quantitative measurements alongside the qualitative result, the laboratory provides spot counts for informational purposes only. The T-SPOT.TB test should not be interpreted as a quantitative test. Performed By: #### H EPFP #### [place] [address] [place] [address] ABO/RH GROUP TESTon 05-28-20 ABO TYPE O Normal [facility] Comment on above: Performed By: #### H LAS1 #### [facility] [address] [place] [id number] RH TYPE Positive Normal [facility] Comment on above: Performed By: #### H LAS1 #### [place] [address] [place] [phone] AUTOCROSSMATCH, FLOWon 05-28 AUTOCROSSMATCH, FLOW SEE SEPARATE REPORT Normal [facility] Comment on above: Result Comment: Test performed at [facility] Laboratory [facility], [address]th [address] [place] [address] Performed By: #### U SWETHA #### [facility] [address] [place] [address] AUTOCROSSMATCH, FLOW Canceled Normal [facility] Comment on above: Order Comment: TEST AUTOCROSSMATCH, FLOW WAS CANCELLED, 05/28/2022 13:06 Result Comment: Test performed at [facility], 6th Floor [id number] [place] [address] Performed By: #### H EPFP #### [facility] [address] [facility] [place] [address] Blood Typing (ABO + Rho D)on 05-28-2022 ABO group Nom (Bld) O [facility] Work Phone: Rh immune globulin screen (Bld) [Interp] Positive [facility]- [facility] Work Phone: Blood Urea Nitrogen, Serumon 05-28-2022 Urea nitrogen [Mass/Vol] 47 mg/dL above high threshold 6 - 23 [facility] Work Phone: C PEPTIDEon 05-28-2022 C PEPTIDE 0.1 ng/mL Low 0.7 - 3.9 [facility] Comment on above: Performed By: #### U SWETHA #### [facility] [address] [place] [address] C Peptide, Serumon 2 C peptide [Mass/Vol] 0.1 ng/mL below low threshold 0.7 - 3.9 [facility]-Transplant- [facility] [place] [address] Work Phone: CBCon 05-28-2022 Erythrocyte distribution width (RBC) [Ratio] 13.5 % Normal 11.5 - 14.5 [facility] Comment on above: Performed By: #### U SWETHA #### [facility] [address] [place] [address] Hematocrit (Bld) [Volume fraction] 37.0 % Normal 36.0 - 46.0 [facility] Comment on above: Performed By: #### U SWETHA #### [facility] [address] [place] [address] Hemoglobin (Bld) [Mass/Vol] 11.3 g/dL Low 12.0 - 16.0 [facility] Comment on above: Performed By: #### U SWETHA #### [facility] [address] [place] [address] MCHC (RBC) [Mass/Vol] 30.5 g/dL Low 32.0 - 36.0 [facility] Comment on above: Performed By: #### U SWETHA #### [facility] [address] [place] [address] MCV (RBC) [Entitic vol] 101 fL High 80 - 100 [facility] Comment on above: Performed By: #### U SWETHA #### [facility] [address] [place] [address] NUCLEATED RBC 0.0 /100 WBC Normal 0.0-0.0 [facility] Comment on above: Performed By: #### U SWETHA #### [facility] [address] [place] [address] Platelets (Bld) [#/Vol] 240 10*3/uL Normal 150 - 450 [facility] Comment on above: Performed By: #### U SWETHA #### [facility] [address] [place] [address] RBC 3.66 x10E12/L Low 4.00 - 5.20 [facility] Comment on above: Performed By: #### U SWETHA #### [facility] [address] [place] [address] WBC (Bld) [#/Vol] 9.3 10*3/uL Normal 4.4 - 11.3 [facility] Comment on above: Performed By: #### U SWETHA #### [facility] [address] [place] [address] CMV IGGon 05-28-2022 CMV IGG AB Reactive Abnormal NONREACTIVE [facility] Comment on above: Performed By: #### H LAS1 #### [facility] [address] [place] [address] CMV IgGon 05-28-2022 CMV IgG Reactive Abnormal See Below [facility]- [facility] [employer] Work Phone: Comment on above: SOURCE: Reference Ra nge: NONREACTIVE CREATININEon 05-28-2022 Creatinine [Mass/Vol] 2.19 mg/dL High 0.50 - 1.05 [facility] Comment on above: Performed By: #### H LAS1 #### [facility] [address] [place] [address] GFR/1.73 sq M.predicted among non-blacks MDRD (S/P/Bld) [Vol rate/Area] 25 mL/min/{1.73_m2} Abnormal >90 [facility] Comment on above: Result Comment: CALC ULATIONS OF ESTIMATED GFR ARE PERFORMED USING THE 2020 CKD-EPI STUDY REFIT EQUATION WITHOUT THE RACE VARIABLE FOR THE IDMS-TRACEABLE CREATININE METHODS. https://jasn.asnjournals.org/content/early/ASN.79848 06434 Performed By: #### H LAS1 #### [facility] [address] [place] [address] Creatinine, Serumon 05-28-20 Creatinine [Mass/Vol] 2.19 mg/dL above high threshold See Below [facility]- [facility] [place] [address] Work Phone: Comment on above: Reference Range: 0.5 0 - 1.05 Creatinine, Serum 25 {mL/min/1.73m2} Abnormal >90 [facility]Transplant- [facility] [place] [address] Work Phone: Comment on above: CALCULATIONS OF EMILIO MATED GFR ARE PERFORMED USING THE 2020 CKD-EPI STUDY REFIT EQUATION WITHOUT THE RACE VARIABLE FOR THE IDMS-TRACEABLE CREATININE METHODS.https://jasn.asnjournals.org/content/early//A SN.2277061480 EBV PANELon 05-28-2022 VCA IGM ANTIBODY Negative Normal NEGATIVE [facility] Comment on above: Performed By: #### E BVP1 #### [facility] [address] [place] [address] EBV EA-D IGG ANTIBODY Negative Normal NEGATIVE [facility] Comment on above: Performed By: #### E BVP1 #### [facility] [address] [place] [phone] EBV INTERPRETATION SEE BELOW Normal [facility] Comment on above: Result Comment: . EB V INTERPRETATION CHART . VCA-IGG VCA-IGM NA-IGG EA-IGG . PRIMARY ACUTE +/- +/- - +/- LATE ACUTE + +/- +/- +/- RECOVERING + - - + PREVIOUS INFECTION + - +/- - Performed By: #### E BVP1 #### [facility] [address] [place] [address] EBV NA-1 IGG ANTIBODY Positive Abnormal NEGATIVE [facility] Comment on above: Performed By: #### E BVP1 #### [facility] [address] [place] [address] VCA IGG ANTIBODY Positive Abnormal NEGATIVE [facility] Comment on above: Performed By: #### E BVP1 #### [facility] [address] [place] [address] HEMOGLOBIN A1Con 05-28-2022 Glucose [Mass/Vol] 194 mg/dL Normal [facility] Comment on above: Performed By: #### H EPFP #### [facility] [address] [place] [address] HbA1c (Bld) [Mass fraction] 8.4 % Abnormal [facility] Comment on above: Result Comment: Diag nosis of Diabetes-Adults Non-Diabetic: < or = 5.6% Increased risk for developing diabetes: 5.7-6.4% Diagnostic of diabetes: > or = 6.5% . Monitoring of Diabetes Age (y) Therapeutic Goal (%) Adults: >18 <7.0 Pediatrics: 13-18 <7.5 7-12 <8.0 0- 6 7.5-8.5 [employer]. Diabetes Care 33(S1), Nov 2009. Performed By: #### H EPFP #### [facility] [address] [place] [address] HEPATIC FUNCTION PANELon Albumin [Mass/Vol] 3.5 g/dL Normal 3.4 - 5.0 [facility] Comment on above: Performed By: #### H EPFP #### [facility] [address] [place] [address] ALP [Catalytic activity/Vol] 70 U/L Normal 33 - 136 [facility] Comment on above: Performed By: #### H EPFP #### [facility] [address] [place] [address] ALT [Catalytic activity/Vol] 12 U/L Normal 7 - 45 [facility] Comment on above: Result Comment: Lauren ents treated with Sulfasalazine may generate falsely decreased results for ALT. Performed By: #### H EPFP #### [facility] [address] [place] [address] AST [Catalytic activity/Vol] 15 U/L Normal 9 - 39 [facility] Comment on above: Performed By: #### H EPFP #### [facility] [address] [place] [address] Bilirubin [Mass/Vol] 0.3 mg/dL Normal 0.0 - 1.2 [facility] Comment on above: Performed By: #### H EPFP #### [facility] [address] [place] [address] Bilirubin.indirect [Mass/Vol] 0.1 mg/dL Normal 0.0 - 0.3 [facility] Comment on above: Performed By: #### H EPFP #### [facility] [address] [place] [address] Protein [Mass/Vol] 6.0 g/dL Low 6.4 - 8.2 [facility] Comment on above: Performed By: #### H EPFP #### [facility] [address] [place] [phone] HEPATITIS B CORE AB-TOTALon 05-28-2022 HEP. B CORE AB-TOTAL Non-Reactive Normal NONREACTIVE U [facility] Comment on above: Result Comment: Resu lts from patients taking biotin supplements or receiving high-dose biotin therapy should be interpreted with caution due to possible interference with this test. Providers may contact their local laboratory for further information. Performed By: #### H BCRT #### [facility] [address] [place] [phone] Lab Specimen Source Normal [facility] Comment on above: Performed By: #### H BCRT #### [facility] [address] [place] [address] Performed By: #### S YPHR #### [facility] [address] [place], [place] [id number] Performed By: #### H LAS1 #### [facility] [address] [place] [address] Performed By: #### U SWETHA #### [facility] [address] [place] [address] HEPATITIS B SURF ABon 2021 HEP B SURF AB <3.1 Normal <10 [facility] Comment on above: Result Comment: INTE RPRETIVE CRITERIA: <10 mIU/mL....NONREACTIVE >=10 mIU/mL...REACTIVE . Biotin interference may cause falsely decreased results. Patients taking a Biotin dose of up to 5 mg/day should refrain from taking Biotin for 24 hours before sample collection. Providers may contact their local laboratory for further information. Performed By: #### H LAS1 #### [facility] [address] [place] [address] HEPATITIS B SURFACE AGon HEP.B SURFACE AG Non-Reactive Normal NONREACTIVE [facility] Comment on above: Result Comment: Biot in interference may cause falsely decreased results. Patients taking a Biotin dose of up to 5 mg/day should refrain from taking Biotin for 24 hours before sample collection. Providers may contact their local laboratory for further information. Performed By: #### U SWETHA #### [facility] [address] [place] [address] HEPATITIS C ABon 05-28-2022 HEPATITIS C AB Non-Reactive Normal NONREACTIVE [facility] Comment on above: Result Comment: Resu lts from patients taking biotin supplements or receiving high-dose biotin therapy should be interpreted with caution due to possible interference with this test. Providers may contact their local laboratory for further information. Performed By: #### H LAS1 #### [facility] [address] [place] [address] HIV 1/2 ANTIGEN/ANTIBODY SCR EEN WITH REFLEX TO CONFIRMATIONon 05-28-2022 HIV 1/2 AG/AB SCREEN Non-Reactive Normal NONREACTIVE [facility] Comment on above: Result Comment: HIV Ag/Ab screen is performed using the Siemens [employer] HIV Ag/Ab Combo assay which detects the presence of HIV p24 antigen as well as antibodies to HIV-1 (Group M and O) and HIV-2. . No laboratory evidence of HIV infection. If acute HIV infection is suspected, consider testing for HIV RNA by PCR (viral load). Performed By: #### H LAS1 #### [facility] [address] [place] [address] HIV 1+2 Ab Qn (S) Non-Reactive See Below [facility]-Tr [facility]- [facility] [place] [address] Work Phone: Comment on above: SOURCE: Reference Ra nge: NONREACTIVE HIV Ag/Ab screen is performed using the Siem[employer] HIV Ag/Ab Combo assay which detects the presence of HIV p24 antigen as well as antibodies to HIV-1 (Group M and O) and HIV-2..No laboratory evidence of HIV infection. If acute HIV infection is suspected, consider testing for HIV RNA by PCR (viral load). HLA CLASS I AB SCREEN,FCon 0 05-28-2022 HLA CLASS I AB SCREEN,FC SEE COMMENT Normal [facility] Comment on above: Result Comment: HLA CLASS I AB SCREEN,FLOW CYTOMETRY SEE SEPARATE REPORT. Test performed at [facility] Laboratory [facility], 6th Floor [address] [place] [address] Performed By: #### H LAS1 #### [facility] [address] [place] [id number] HLA CLASS I AB SCREEN,FC Canceled Normal [facility] Comment on above: Order Comment: TEST HLA CLASS I AB SCREEN,FC WAS CANCELLED, 05/28/2022 13:06 Performed By: #### H LAS1 #### [facility] [address] [place] [id number] HLA CLASS II AB SCREEN,FCon 05-28-2022 HLA CLASS II AB SCREEN,FC SEE COMMENT Normal [facility] Comment on above: Result Comment: HLA CLASS II AB SCREEN,FLOW CYTOMETRY SEE SEPARATE REPORT. Test performed at [facility], 6th Floor [address] [place] [address] Performed By: #### U SWETHA #### [facility] [address] [place] [phone] HLA CLASS II AB SCREEN,FC Canceled Normal [facility] Comment on above: Order Comment: TEST HLA CLASS II AB SCREEN,FC WAS CANCELLED, 05/28/2022 13:06 Performed By: #### H LAS1 #### [facility] [address] [place] [address] HLA-A,B,C LRon 05-28-2022 HLA-A LOCUS LR TYPE SEE COMMENT Normal [facility] Comment on above: Result Comment: HLA- A LOCUS, LOW RESOLUTION TYPE SEE SEPARATE REPORT. Performed By: #### H EPFP #### [facility] [address] [place] [phone] HLA-B LOCUS LR TYPE SEE COMMENT Normal [facility] Comment on above: Result Comment: HLA- B LOCUS, LOW RESOLUTION TYPE SEE SEPARATE REPORT. Performed By: #### H EPFP #### [facility] [address] [place] [address] HLA-C LOCUS LR TYPE SEE COMMENT Normal [facility] Comment on above: Result Comment: HLA- C LOCUS, LOW RESOLUTION TYPE SEE SEPARATE REPORT. Test performed at [facility], 6th Floor [address] [place] [address] Performed By: #### H EPFP #### [facility] [address] [place] [address] HLA-A LOCUS LR TYPE Canceled Normal [facility] Comment on above: Order Comment: TEST HLA-A,B,C LR WAS CANCELLED, 05/28/2022 13:06 Performed By: #### H EPFP #### [facility] [address] [place] [address] HLA-B LOCUS LR TYPE Canceled Normal [facility] Comment on above: Order Comment: TEST HLA-A,B,C LR WAS CANCELLED, 05/28/2022 13:06 Performed By: #### H EPFP #### [facility] [address] [place] [id number] HLA-C LOCUS LR TYPE Canceled Normal [facility] Comment on above: Order Comment: TEST HLA-A,B,C LR WAS CANCELLED, 05/28/2022 13:06 Performed By: #### H EPFP #### [facility] [address] [place] [id number] HLA-DPB1 HR TYPINGon 022 HLA-DPB1 HR TYPING SEE COMMENT Normal [facility] Comment on above: Result Comment: HLA- DPB1 HIGH RESOLUTION TYPING SEE SEPARATE REPORT. Test performed at [facility], 6th Floor [address] [place] [address] Performed By: #### D PBHT #### [facility] [address] [place] [id number] HLA-DPB1 HR TYPING Canceled Normal [facility] Comment on above: Order Comment: TEST HLA-DPB1 HR TYPING WAS CANCELLED, 05/28/2022 13:06 Performed By: #### D PBHT #### [facility] [address] [place] [id number] HLA-DQB1 HR TYPINGon 022 HLA-DQB1 HR TYPING SEE COMMENT Normal [facility] Comment on above: Result Comment: HLA- DQB1 HIGH RESOLUTION TYPING SEE SEPARATE REPORT. Test performed at [facility], 6th Floor [address] [place] [address] Performed By: #### D QBHT #### [facility] [address] [place] [id number] HLA-DQB1 HR TYPING Canceled Normal [facility] Comment on above: Order Comment: TEST HLA-DQB1 HR TYPING WAS CANCELLED, 05/28/2022 13:06 Performed By: #### H EPFP #### [facility] [address] [place] [id number] HLA-DRB1/3/4/5 AND DQB1 LR T YPINGon 05-28-2022 HLA-DRB1/3/4/5 & DQB1 LR TYPING SEE COMMENT Normal [facility] Comment on above: Result Comment: HLA- DRB1/3/4/5 AND DQB1 LOW RESOLUTION TYPING SEE SEPARATE REPORT. Test performed at [facility], 6th Floor [address] [place] [address] Performed By: #### H EPFP #### [facility] [address] [place] [id number] HLA-DRB1/3/4/5 & DQB1 LR TYPING Canceled Normal [facility] Comment on above: Order Comment: TEST HLA-DRB1/3/4/5 AND DQB1 LR TYPING WAS CANCELLED, 05/28/2022 13:06 Performed By: #### H EPFP #### [facility] [address] [place] [address] Hemoglobin A1Con 05-28-2022 Glucose [Mass/Vol] 194 mg/dL MG-Tra [facility] Work Phone: HbA1c (Bld) [Mass fraction] 8.4 % Abnormal MG-Transplant- [facility] Work Phone: Comment on above: Diagnosis of Diabete s-Adults Non-Diabetic: < or = 5.6% Increased risk for developing diabetes: 5.7-6.4% Diagnostic of diabetes: > or = 6.5%. Monitoring of Diabetes Age (y) Therapeutic Goal (%) Adults: >18 <7.0 Pediatrics: 13-18 <7.5 7-12 <8.0 0- 6 7.5-8.5 [employer]. Diabetes Care 33(S1), Nov 2009. Hepatic Function Panelon Albumin BCP dye [Mass/Vol] 3.5 g/dL 3.4 - 5.0 [facility]- [facility] Work Phone: ALP [Catalytic activity/Vol] 70 U/L 33 - 136 [facility]- [facility] Work Phone: ALT With P-5'-P [Catalytic activity/Vol] 12 U/L 7 - 45 [facility]- [facility] Work Phone: Comment on above: Patients treated wit h Sulfasalazine may generate falsely decreased results for ALT. AST With P-5'-P [Catalytic activity/Vol] 15 U/L 9 - 39 [facility]- [facility] Work Phone: Bilirubin [Mass/Vol] 0.3 mg/dL 0.0 - 1.2 MG-T ransplant- [facility] Work Phone: Bilirubin.direct [Mass/Vol] 0.1 mg/dL 0.0 - 0.3 [facility]- [facility] Work Phone: Protein [Mass/Vol] 6.0 g/dL below low threshold 6.4 - 8.2 [facility]- [facility] Work Phone: Hepatitis B Core Antibody, T otalon 05-28-2022 Hepatitis B Core Antibody, Total Non-Reactive See Below [facility]- [facility] Work Phone: Comment on above: SOURCE: Reference Ra nolan: NONREACTIVE Results from patients taking biotin supplements or receiving high-dose biotin therapy should be interpreted with caution due to possible interference with this test. Providers may contact their local laboratory for further information. SOURCE: Reference Ra nolan: NONREACTIVE Biotin interference may cause falsely decreased results. Patients taking a Biotin dose of up to 5 mg/day should refrain from taking Biotin for 24 hours before sample collection. Providers may contact their local laboratory for further information. Hepatitis B Surface Antibody on 05-28-2022 HBV surface Ag IA Ql <3.1 <10 [facility] Work Phone: Comment on above: SOURCE: INTERPRETIVE CRITERIA:<10 mIU/mL....NONREACTIVE >=10 mIU/mL...REACTIVE . Biotin interference may cause falsely decreased results. Patients taking a Biotin dose of up to 5 mg/day should refrain from taking Biotin for 24 hours before sample collection. Providers may contact their local laboratory for further information. Laboratory - Drug toxicology on 05-28-2022 Amphetamines Screen Ql Negative Cutoff 20 MG -Transplant- [facility] Work Phone: Barbiturates Screen Ql Negative Cutoff 50 [facility] Work Phone: Benzodiazepines Screen Ql Negative Cutoff 50 [facility]-Transplant- [facility] Work Phone: Cannabinoids Screen Ql Negative Cutoff 20 [facility] Work Phone: Cocaine Screen Ql Negative Cutoff 20 [facility] Work Phone: Methadone Screen Ql Negative Cutoff 25 [facility] Work Phone: Methamphetamine Ql Negative Cutoff 20 [facility] Work Phone: Opiates Screen Ql Negative Cutoff 20 [facility] Work Phone: oxyCODONE Ql Negative Cutoff 20 [facility] Work Phone: Phencyclidine Screen Ql Negative Cutoff 10 [facility] Work Phone: Laboratory - HLA antigenson 05-28-2022 HLA-A locus Nom (Bld/Tiss) SEE COMMENT [facility] [place] [address] Work Phone: Comment on above: HLA-A LOCUS, LOW RES OLUTION TYPE SEE SEPARATE REPORT. HLA-B locus Nom (Bld/Tiss) SEE COMMENT [facility] [place] [address] Work Phone: Comment on above: HLA-B LOCUS, LOW RES OLUTION TYPE SEE SEPARATE REPORT. HLA-C locus Nom (Bld/Tiss) SEE COMMENT [facility] [place] [address] Work Phone: Comment on above: HLA-C LOCUS, LOW RES OLUTION TYPE SEE SEPARATE REPORT.Test performed at [facility] Laboratory [facility], 6th Floor [address] [place] [address] HLA-DP2 Ql (Bld/Tiss) SEE COMMENT [facility] [facility] [address] [address]99 Work Phone: Comment on above: HLA-DPB1 HIGH RESOLU TION TYPING SEE SEPARATE REPORT.Test performed at [facility]ogen[facility] Laboratory [facility], 6th Floor [address] [place] [address] HLA-DQB1 High resolution Nom (Bld/Tiss) SEE COMMENT [facility] Jackelin 1800 Work Phone: Comment on above: HLA-DQB1 HIGH RESOLU TION TYPING SEE SEPARATE REPORT.Test performed at [facility], 6th Floor [address] [place] [address] HLA-DR+DQ Nom (Bld/Tiss) SEE COMMENT [facility] [place] 1800 Work Phone: Comment on above: HLA-DRB1/3/4/5 & DQB 1 LOW RESOLUTION TYPING SEE SEPARATE REPORT.Test performed at [facility] Laboratory [facility], 6th Floor [address] [place] [address] HLA-A locus Nom (Bld/Tiss) [facility] Work Phone: HLA-B locus Nom (Bld/Tiss) Canceled [facility] [place] 1799 Work Phone: HLA-C locus Nom (Bld/Tiss) Canceled [facility] [place] 1799 Work Phone: HLA-DP2 Ql (Bld/Tiss) Canceled [facility]- [facility]- [facility] [place] 1799 Work Phone: HLA-DQB1 High resolution Nom (Bld/Tiss) Canceled [facility] [place] 1799 Work Phone: HLA-DR+DQ Nom (Bld/Tiss) Canceled [facility] [place] 1799 Work Phone: Laboratory - Hematology and Cell countson 05-28-2022 Erythrocyte distribution width (RBC) [Ratio] 13.5 % See Below [facility] [place] 1799 Work Phone: Comment on above: Reference Range: 11. 5 - 14.5 Hematocrit (Bld) [Volume fraction] 37.0 % See Below [facility] [place] 1799 Work Phone: Comment on above: Reference Range: 36. 0 - 46.0 Hemoglobin (Bld) [Mass/Vol] 11.3 g/dL below low threshold See Below [facility] [place] 1800 Work Phone: Comment on above: Reference Range: 12. 0 - 16.0 MCHC (RBC) [Mass/Vol] 30.5 g/dL below low threshold See Below [facility] [place] 1799 Work Phone: Comment on above: Reference Range: 32. 0 - 36.0 MCV (RBC) [Entitic vol] 101 fL above high threshold 80 - 100 [facility] [place] 1799 Work Phone: Platelets (Bld) [#/Vol] 240 10*3/uL 150 - 450 [facility] [place] 1800 Work Phone: RBC (Bld) [#/Vol] 3.66 {x10E12/L} below low threshold See Below [facility] [employer] 1800 Work Phone: Comment on above: Reference Range: 4.0 0 - 5.20 WBC (Bld) [#/Vol] 9.3 10*3/uL 4.4 - 11.3 [facility]Tra [facility]- [facility] [employer] 1800 Work Phone: Laboratory - Microbiology an d Antimicrobial susceptibilityon 05-28-2022 EBV capsid IgG IA Qn (S) Positive Abnormal NEGATIVE [facility]- [facility] [place] 1800 Work Phone: EBV capsid IgM IA Qn (S) Negative NEGATIVE [facility]- [facility] [place] 1800 Work Phone: EBV early IgM IA Qn (S) Negative NEGATIVE [facility]- [facility] [place] 1800 Work Phone: EBV nuclear IgG IA Qn (S) Positive Abnormal NEGATIVE [facility]- [facility] [employer] 1800 Work Phone: Nicotine+Metabolites, Serumo n 05-28-2022 Cotinine [Mass/Vol] 194 ng/mL -Tr [facility] Work Phone: Nicotine [Mass/Vol] 7 ng/mL -Tr [facility] Work Phone: Comment on above: Consistent with use of a nicotine-containing product [id number] hours of specimen collection. Nicotine is metabolizedto cotinine and 1-KI-bweonybr.INTERPRETIVE INFORMATION: Nicotine and Metabolites, Serum or Plasma, QuantitativeMethodology: Quantitative Liquid Chromatography-Tandem Mass SpectrometryPositive cutoff: 2 ng/mLFor medical purposes only; not valid for forensic use. This test is designed to evaluate recent use of nicotine-containing products. Passive and active exposure cannot be discriminated definitively, although a cutoff of 10 ng/mL cotinine is frequently used for surgery qualification purposes. For smoking cessation programs or compliance testing, the absence of expected drug(s) and/or drug metabolite(s) may indicate non-compliance, inappropriate timing of specimen collection relative to drug administration, poor drug absorption, or limitations of testing. This test cannot distinguish between use of tobacco and purified nicotine products. The concentration value must be greater than or equal to the cutoff to be reported as positive. This test was developed and its performance characteristics determined by [employer]. It has not been cleared or approved by the [place] Food and Drug Administration. This test was performed in a CLIA certified laboratory and is intended for clinical purposes.Performed By: [employer] [place] [address] [id number] Director: Fabrizio Cruz MD, PhD [id number] e [Mass/Vol] 156 ng/mL [facility]-Transplant- [facility] Work Phone: No Panel Informationon 05-28 SEE COMMENT -Transplant - [facility] [place] 1800 Work Phone: Comment on above: HLA CLASS I AB SCREE N,FLOW CYTOMETRY SEE SEPARATE REPORT.Test performed at [facility] Laboratory [facility], 6th Floor [address] [place] [address] HLA CLASS II AB SCRE EN,FLOW CYTOMETRY SEE SEPARATE REPORT.Test performed at [facility] Laboratory [facility], 6th Floor [id number] [place] [address] SEE SEPARATE REPORT -Tr ansplant- [facility] [place] 1800 Work Phone: Comment on above: Test performed at [facility] Histocompatibility and Immunogenetics Laboratory [facility], 6th Floor [address] [place] [address] Annotation comment [Interpretation] Narrative See Note [facility] Work Phone: Comment on above: INTERPRETIVE INFORMA TION: Drug Screen 9 Panel, Serum or Plasma - Immunoassay Screen with Reflex to Mass Spectrometry Confirmation/Quantitation1. Methodology: Qualitative Immunoassay Screen2. Drugs/Drug classes reported as Positive are automatically reflexed to mass spectrometry confirmation/quantitation testing. An immunoassay unconfirmed positive screen result may be useful for medical purposes but does not meet forensic standards. 3. The absence of expected drug(s) and/or drug metabolite(s) may indicate noncompliance, inappropriate timing of specimen collection relative to drug administration, poor drug absorption, or limitations of testing. The concentration at which the screening test can detect a drug or metabolite varies within a drug class. Specimens for which drugs or drug classes are detected by the screen are automatically reflexed to a second, more specific technology (mass spectrometry). The concentration value must be greater than or equal to the cutoff to be reported as positive. Interpretive questions should be directed to the laboratory.4. For medical purposes only; not valid for forensic use.This test was developed and its performance characteristics determined by [employer]. It has not been cleared or approved by the US Food and Drug Administration. This test was performed in a CLIA certified laboratory and is intended for clinical purposes.Performed By: [facility] [place] [address] [id number] Director: Fabrizio Cruz MD, PhD 0.0 {/100_WBC} 0.0-0.0 [facility] Work Phone: SEE BELOW [facility] Work Phone: Comment on above: . EBV INTERPRETATION CHART. VCA-IGG VCA-IGM NA-IGG EA-IGG. PRIMARY ACUTE +/- +/- - +/-LATE ACUTE + +/- +/- +/-RECOVERING + - - +PREVIOUS INFECTION + - +/- - Canceled [facility] Work Phone: Comment on above: Test performed at [facility]ocompatibility and Immunogenetics Laboratory [facility], 6th Floor [address] [place] [address] Office VIsit (Pre-Transplant Surgery)on 05-28-2022 Follow-up visit Diagnosis/Problems Assessed Pre-transplant evaluation for kidney transplant (V72.83) (Z01.818) History of end stage renal disease (V13.09) (Z87.448) History of diabetes mellitus (V12.29) (Z86.39) History of chronic obstructive lung disease (V12.69) (Z87.09) History of coronary artery disease (V12.59) (Z86.79) History of Appendectomy History of Hysterectomy Current smoker (305.1) (F17.200) Has access to [employer] Health insurance coverage Living Situation: Supportive and safe Spouse/family support Patient Discussion/Summary Impression: Kidney Transplant: eval Patient Discussion: I had a discussion with this patient regarding survival statistics at 1, 5, and 10 years following [renal] transplantation for [both living and] donor allografts. The difference between patient and graft survival was discussed [for Living donor, Standard Criteria donor, Extended Criteria donor, KDPI 85% or higher, and Donation after Cardiac ] as it applied to their circumstance. Further discussion included: The transplant selection committee process. The need for lifelong immunosuppressive therapy, and the side effects of these medications including the risk of infections, cancer. and lymphoma. The wait list time approximately is 3-5 years or more for donor transplants and the statistical superiority of a living donor. The concept of Centers for Disease Control and [facility] health services high-risk donors and a potential transmission of infectious disease from these donors, as well as living donors. The possibility of transmission of tumors via the transplanted organ.The inability to completely test for all potential harmful tumors or infectious agents Surgical complications including need for reoperation due to bleeding, repair of leaks, control of infection, and also possible allograft removal. The medical complications including but not limited to , cardiac, pulmonary, infectious, neurologic, and other complications. We also discussed allograft nonfunction, delayed graft function, potential removal, and dialysis. The potential of recurrence of disease leading to kidney transplant graft loss We discussed the institutional survival statistics for patient and kidney We discussed the possibility of listing at multiple locations We discussed the kidney donor profile index and the opt in ability you have to be listed for kidneys 85% and greater The patient understands these issues and is eager to proceed with the evaluation and possibility of listing for [kidney] transplantation. I did offer time for the patient to ask questions.discussed with the patient. Based on today's encounter: SANDY is an unacceptable candidate. By signing my name below, I, Alfredo Og, attest that this documentation has been prepared under the direction and in the presence of Dr. Brady Burroughs. All medical record entries made by the Alfredo were at my direction and personally dictated by me. I have reviewed the chart and agree that the record accurately reflects my personal performance of the history, physical exam, discussion and plan. PLAN: Close - Active tobacco use in COPD, diabetes, and CAD - Return after smoking cessation program and PFT's/Pulmonary clearance. COVID-19 Risk Consent for: Provider has reviewed the risk of gerard COVID-19 and the impact during the post-operative or post-procedure recovery process. Chief Complaint Kidney transplant surgical evaluation for potential active candidacy on kidney transplant list History of Present Illness Kidney Transplant Reason For Visit: Pre-Transplant. Functional Status: Karnofsky Performance Status Scale Definitions Rating (%) Criteria Unable to work; able to live at home and care for most personal needs; varying amount of assistance needed, 70 - Cares for self; unable to carry on normal activity or do active work. CKD: stage 5. TIEDI: diabetes yes onset (22 years ago), history of vascular disease, coronary artery disease and potential living donors. Preemptive (Not on Dialysis) Urine Status: normal. Compliance/Tolerance/C ontrol: good compliance with treatment. Primary Care Provider: Dr. Bird Lujan. Referral: Dr. Christy Huerta (tel: [phone] fax: [phone]). I am seeing SANDY DENG at the referring provider's request for surgical suitability for renal transplant candidate listing at [facility]. History of Present Illness Comments: Ms. SANDY DENG is a 61 year old white female with end stage renal disease which was diagnosed in 2015 during a hysterectomy when she was found to have abnormal kidney function. She was diagnosed with type 1 diabetes mellitus 22 years ago. She has a history of a myocardial infarction which led to 2 PCI placements after syncope which led to a catheter in 2018. She was diagnosed with COPD in 2018 and has a histor (more content not included)... Normal [employer] PHOSPHORUSon 05-28-2022 Phosphate [Mass/Vol] 5.3 mg/dL High 2.5 - 4.9 [facility] Comment on above: Result Comment: The performance characteristics of phosphorus testing in heparinized plasma have been validated by the individual laboratory site where testing is performed. Testing on heparinized plasma is not approved by the FDA; however, such approval is not necessary. Performed By: #### H LAS1 #### [facility] [address] [place] [address] Phosphorus, Serumon 05-28-20 Phosphate [Mass/Vol] 5.3 mg/dL above high threshold 2.5 - 4.9 [facility]- [facility] [place] [address] Work Phone: Comment on above: The performance armond acteristics of phosphorus testing in heparinized plasma have been validated by the individual laboratory site where testing is performed. Testing on heparinized plasma is not approved by the FDA; however, such approval is not necessary. SYPHILIS SCREENING WITH REFL EXon 05-28-2022 SYPHILIS TOTAL AB Non-Reactive Normal NONREACTIVE [facility] Comment on above: Result Comment: No s ignificant level of Treponema pallidum antibody detected. Repeat testing in 2 to 4 weeks may be considered if early infection or incubating syphilis infection is suspected. Performed By: #### S YPHR #### [facility] [address] [place], [place] [id number] T. pallidum IgG+IgM IA Ql (S) Non-Reactive See Below [facility]- [facility] [place] [employer] Work Phone: Comment on above: SOURCE: Reference Ra nge: NONREACTIVENo significant level of Treponema pallidum antibody detected. Repeat testing in 2 to 4 weeks may be considered if early infection or incubating syphilis infection is suspected. T-SPOT. TBon 05-28-2022 T-SPOT. TB Passed MG-Transplant- [facility] Work Phone: T-SPOT. TB 2 1 [facility] Work Phone: T-SPOT. TB 0 1 [facility] Work Phone: Tobacco Screening.on 022 Fall risk assessment a) No falls within the last year [facility]- [facility] [place] [address] Work Phone: Tobacco use status CPHS a) Yes [facility]- [facility] [place] [address] Work Phone: Tobacco Screening. Yes [facility]-Tra nsplant- [facility] [place] [address] Work Phone: UA MICROSCOPICon 05-28-2022 Mucus Ql (Urine sed) 1+ /LPF Normal [facility] Comment on above: Performed By: #### U SWETHA #### [facility] [address] [place] [address] RBC 2 /HPF Normal 0-5 [facility] Comment on above: Performed By: #### U SWETHA #### [facility] [address] [place] [address] SQUAMOUS EPITH. CELLS 3 /HPF Normal [facility] Comment on above: Performed By: #### U SWETHA #### [facility] [address] [place] [address] WBC 12 /HPF Abnormal 0-5 [facility] Comment on above: Performed By: #### U SWETHA #### [facility] [address] [place] [address] UREA NITROGENon 05-28-2022 Urea nitrogen [Mass/Vol] 47 mg/dL High 6 - 23 [facility] Comment on above: Performed By: #### U SWETHA #### [facility] [address] [place] [address] URINALYSISon 05-28-2022 Appearance (U) CLEAR Normal CLEAR [facility] Comment on above: Performed By: #### H LAS1 #### [facility] [address] [place] [address] Bilirubin Ql (U) Negative Normal NEGATIVE [facility] Comment on above: Performed By: #### H LAS1 #### [facility] [address] [place] [address] Color (U) YELLOW Normal STRAW,YELLOW [facility] Comment on above: Performed By: #### H LAS1 #### [facility] [address] [place] [address] Glucose Ql (U) Negative Normal NEGATIVE [facility] Comment on above: Performed By: #### H LAS1 #### [facility] [address] [place] [address] Hemoglobin Ql (U) Negative Normal NEGATIVE [facility] Comment on above: Performed By: #### H LAS1 #### [facility] [address] [place] [address] Ketones Ql (U) Negative Normal NEGATIVE [facility] Comment on above: Performed By: #### H LAS1 #### [facility] [address] [place] [address] Leukocyte esterase Test strip Ql (U) SMALL (1+) Abnormal NEGATIVE [facility] Comment on above: Performed By: #### H LAS1 #### [facility] [address] [place] [address] Nitrite Ql (U) Negative Normal NEGATIVE [facility] Comment on above: Performed By: #### H LAS1 #### [facility] [address] [place] [address] pH (U) 5.0 [pH] Normal 5.0 - 8.0 [facility] Comment on above: Performed By: #### H LAS1 #### [facility] [address] [place] [address] Protein Ql (U) 100 (2+) Abnormal NEGATIVE [facility] Comment on above: Performed By: #### H LAS1 #### [facility] [address] [place] [address] Specific gravity (U) [Rel density] 1.016 Normal 1.005 - 1.035 [facility] Comment on above: Performed By: #### H LAS1 #### [facility] [address] [place] [address] Urobilinogen (U) [Mass/Vol] mg/dL Normal 0.0 - 1.9 [facility] Comment on above: Performed By: #### H LAS1 #### [facility] [address] [place] [address] Urinalysison 05-28-2022 Color (U) YELLOW See Below [facility] [employer] [address] Work Phone: Comment on above: Reference Range: STR AW,YELLOW Glucose Ql (U) Negative NEGATIVE [facility]pl ant- [facility] [employer] [address] Work Phone: Ketones Ql (U) Negative NEGATIVE [facility] [employer] [address] Work Phone: Leukocyte esterase Test strip Ql (U) SMALL (1+) Abnormal NEGATIVE [facility] [employer] [address] Work Phone: pH (U) 5.0 [pH] 5.0 - 8.0 [facility]- [facility] [employer] Work Phone: Protein (U) [Mass/Vol] 100 (2+) Abnormal NEGATIVE [facility] -[facility]- [facility] [employer] Work Phone: RBC (U) [#/Vol] Negative NEGATIVE MG-Transp lant- [facility] [employer] Work Phone: Specific gravity (U) [Rel density] 1.016 1 See Below [facility] [place] [employer] Work Phone: Comment on above: Reference Range: 1.0 05 - 1.035 Urinalysis Negative NEGATIVE [facility]- [facility] Work Phone: Comment on above: Reference Range: Nor mal Value: NegativeA negative test result does not exclude the possibility of exposure to or infection with Mycobacterium tuberculosis (M. tuberculosis). Patients with recent exposure to TB infected individuals exhibiting a negative T-SPOT.TB result should be considered for retesting within 6 weeks or if other relevant clinical symptoms indicate. Results from T-SPOT.TB testing must be used in conjunction with each individual's epidemiological history, current medical status, and results of other diagnostic evaluations. The T-SPOT.TB test is qualitative and results are reported as positive, borderline or negative, given that the test controls perform as expected. In line with the Centers for Disease Control and Prevention's 2010 recommendation to report quantitative measurements alongside the qualitative result, the laboratory provides spot counts for informational purposes only. The T-SPOT.TB test should not be interpreted as a quantitative test. Urinalysis <2.0 0.0 - 1.9 [facility]- [facility] [employer] Work Phone: Urinalysis CLEAR CLEAR [facility]- [facility] Work Phone: Urinalysis, Microscopicon Urinalysis, Microscopic 1+ [facility]- [facility] Work Phone: Urinalysis, Microscopic 3 {/HPF} [facility]- [facility] Work Phone: Urinalysis, Microscopic 2 {/HPF} 0-5 [facility]- [facility] Work Phone: Urinalysis, Microscopic 12 {/HPF} Abnormal 0-5 [facility]- [facility] [employer] [address] Work Phone: VARICELLA ZOSTER IGG ABon VARICELLA ZOSTER IGG AB Positive Normal NEGATIVE [facility] Comment on above: Result Comment: INTE RPRETATIVE COMMENT NEGATIVE: No IgG antibodies specific to VZV detected. It is likely that the patient has not had a previous exposure to VZV through infection or vaccination. Alternatively, the patient may have been exposed to VZV but a failure to respond may indicate immunodeficiency. EQUIVOCAL:Equivocal results; obtain additional sample for retesting. POSITIVE: IgG antibody to VZV detected. This may indicate that the patient was exposed to VZV through infection or vaccination. The interpretation of serological tests should take into account the immunological status of the patient. Test results for patients, including immunocompromised patients, neonates, and pediatric patients, reflect their capacity to respond immunologically to the virus as well as their exposure to the pathogen. Patients treated with IVIG may demonstrate altered results in serological assays. Performed By: #### H LAS1 #### [facility] [address] [place] [address] Varicella Zoster IgG Antibod yon 05-28-2022 VZV IgG IA Ql (S) Positive NEGATIVE MG-Mora splant- [facility] [employer] [address] Work Phone: Comment on above: INTERPRETATIVE COMME NT NEGATIVE: No IgG antibodies specific to VZV detected. It is likely that the patient has not had a previous exposure to VZV through infection or vaccination. Alternatively, the patient may have been exposed to VZV but a failure to respond may indicate immunodeficiency. EQUIVOCAL:Equivocal results; obtain additional sample for retesting. POSITIVE: IgG antibody to VZV detected. This may indicate that the patient was exposed to VZV through infection or vaccination.The interpretation of serological tests should take into accountthe immunological status of the patient. Test results forpatients, including immunocompromised patients, neonates, andpediatric patients, reflect their capacity to respondimmunologically to the virus as well as their exposure to thepathogen. Patients treated with IVIG may demonstrate alteredresults in serological assays. Basophil percentageon 2021 Basophil percentage 3.2 mg/dL 2.5-4.9 [facility] Work Phone: Chloride [Moles/Vol] 104 mmol/L 98-[address] [facility] Work Phone: Glucose [Mass/Vol] 92 mg/dL 74-106 [facility] Work Phone: Potassium [Moles/Vol] 4.3 mmol/L 3.5-5.1 [place] [facility] Work Phone: Sodium [Moles/Vol] 137 mmol/L 136-145 [facility] Work Phone: WBC (Bld) [#/Vol] 9.6 10*3/uL 4.4-11.0 [facility] Work Phone: Blood erythrocytes count (nu mber/volume)on 05-02-2022 RBC (Bld) [#/Vol] 4.06 10*6/uL 4.2-5.[address] [facility] Work [facility]: Blood hemoglobin measurement (mass/volume)on 05-02-2022 Hemoglobin (Bld) [Mass/Vol] 12.1 g/dL 12.0-15.0 [facility] Work Phone: Blood platelet mean volumeon 05-02-2022 Platelet mean volume (Bld) [Entitic vol] 9.5 fL 6.2-12.0 [facility] Work Phone: Determination of erythrocyte mean corpuscular volume (MCV)on 05-02-2022 MCV (RBC) [Entitic vol] 95.3 fL 81-99 [facility] Work Phone: Hematocrit Auto (Bld) [Volum e fraction]on 05-02-2022 Hematocrit (Bld) [Volume fraction] 38.7 % 37-47 [facility] Work Phone: Laboratory - Chemistry and C hemistry - challengeon 05-02-2022 CO2 [Moles/Vol] 29.0 mmol/L 21.0-32.0 [facility] Work Phone: Urea nitrogen/Creatinine [Mass ratio] 21.2 mg/mg 10-20 [facility] Work Phone: Laboratory - Hematology and Cell countson 05-02-2022 Erythrocyte distribution width (RBC) [Entitic vol] 46.5 fL 35.1-43.9 [facility] Work Phone: Erythrocyte distribution width (RBC) [Ratio] 13.2 % 11.6-14.6 [facility] Work Phone: MCH (RBC) [Entitic mass] 29.8 pg 27.0-32.0 [facility] Work Phone: MCHC Auto (RBC) [Mass/Vol]on 05-02-2022 MCHC (RBC) [Mass/Vol] 31.3 g/dL 32-36 [facility] Work Phone: No Panel Informationon 05-02 Estimated GFR (MDRD) Amer 35 mL/min >60 [facility] Work Phone: Comment on above: GFR Calc Estimated GFR (MDRD) Non-Af Amer 29 mL/min >60 [facility] Work Phone: Comment on above: Non- GFR Calc Parathyroid Hormone (Intact) 40.1 pg/mL 18.4-80.1 [facility] Work Phone: Platelets bldon 05-02-2022 Platelets (Bld) [#/Vol] 268 10*3/uL 150-450 [facility] Work Phone: Serum or plasma albumin lesly urement (mass/volume)on 05-02-2022 Albumin [Mass/Vol] 3.4 g/dL 3.2-5.0 [facility] Work Phone: Serum or plasma calcium lesly urement (mass/volume)on 05-02-2022 Calcium [Mass/Vol] 9.7 mg/dL 8.5-10.1 [facility] Work Phone: Serum or plasma creatinine m easurement (mass/volume)on 05-02-2022 Creatinine [Mass/Vol] 1.89 mg/dL 0.55-1.02 [facility] Work Phone: Comment on above: The validity of the calculated GFR & GFRAA in patients over 70 years has not been determined. Clinical correlation is essential. Serum or plasma urea nitroge n measurement (mass/volume)on 05-02-2022 Urea nitrogen [Mass/Vol] 40 mg/dL 7-18 [facility] Work Phone: Urine creatinine measurement (mass/volume)on 05-02-2022 Creatinine (U) [Mass/Vol] 72.60 mg/dL NO RANGE EST. [facility] Work Phone: Urine protein measurement (m ass/volume)on 05-02-2022 Protein (U) [Mass/Vol] 114.6 mg/dL 0.0-11.8 [facility] Work Phone: Urine protein/creatinine mas s ratioon 05-02-2022 Protein/Creatinine (U) [Mass ratio] 1579 mg/g CRE 0-200 [facility] Work Phone: Absolute lymphocyte counton 02-08-2022 Lymphocytes Auto (Unsp spec) [#/Vol] 1.86 10*3/uL 0.83-4.51 [facility] Work Phone: Basophil percentageon 2021 Amylase [Catalytic activity/Vol] 57 U/L 25-115 [facility] Work Phone: Basophils/100 WBC (Bld) 0.7 % 0-1 [facility] Work Phone: Bilirubin [Mass/Vol] 0.30 mg/dL 0.20-1.00 [facility] Work Phone: Comment on above: For patients on eltr ombopag therapy, use of Dimension [place] TBIL is not recommended. Chloride [Moles/Vol] 106 mmol/L 98-107 [facility] Work Phone: Eosinophils/100 WBC (Bld) 5.6 % 0-5 [facility] Work Phone: Glucose [Mass/Vol] 180 mg/dL 74-106 [facility] Work Phone: Comment on above: Fasting Glucose resu lt greater than or equal to 126 mg/dL suggests DIABETES MELLITUS per A.D.A. criteria. Neutrophils (Bld) [#/Vol] 5.1 10*3/uL 2.0-7.7 [facility] Work Phone: Neutrophils/100 WBC (Bld) 63.4 % 47-70 [facility] Work Phone: Potassium [Moles/Vol] 5.1 mmol/L 3.5-5.1 [facility] Work Phone: Protein [Mass/Vol] 7.7 g/dL 6.4-8.2 [facility] Work Phone: Sodium [Moles/Vol] 136 mmol/L 136-145 [facility] Work Phone: WBC (Bld) [#/Vol] 8.1 10*3/uL 4.4-11.0 [facility] Work Phone: Blood erythrocytes count (nu mber/volume)on 02-08-2022 RBC (Bld) [#/Vol] 4.10 10*6/uL 4.2-5.4 [facility] Work Phone: Blood hemoglobin measurement (mass/volume)on 02-08-2022 Hemoglobin (Bld) [Mass/Vol] 11.9 g/dL 12.0-15.0 [facility] Work Phone: Blood lymphocytes/100 leukoc yteson 02-08-2022 Lymphocytes/100 WBC (Bld) 23.0 % 19-41 [facility] Work Phone: Blood monocytes/100 leukocyt eson 02-08-2022 Monocytes/100 WBC (Bld) 6.9 % 0-10 [facility] Work Phone: Blood platelet mean volumeon 02-08-2022 Platelet mean volume (Bld) [Entitic vol] 9.9 fL 6.2-12.0 [facility] Work Phone: Determination of erythrocyte mean corpuscular volume (MCV)on 02-08-2022 MCV (RBC) [Entitic vol] 94.1 fL 81-99 [facility] Work Phone: Hematocrit Auto (Bld) [Volum e fraction]on 02-08-2022 Hematocrit (Bld) [Volume fraction] 38.6 % 37-47 [facility] Work Phone: Laboratory - Chemistry and C hemistry - challengeon 02-08-2022 ALP [Catalytic activity/Vol] 87 U/L 45-117 [facility] Work Phone: ALT [Catalytic activity/Vol] 16 U/L 13-56 [facility] Work Phone: CO2 [Moles/Vol] 27.0 mmol/L 21.0-32.0 [facility] Work Phone: Globulin (S) [Mass/Vol] 4.3 g/dL 2.2-4.2 [facility] Work Phone: Lipase [Catalytic activity/Vol] 55 U/L 73-393 [facility] Work Phone: Urea nitrogen/Creatinine [Mass ratio] 20.6 mg/mg 10-20 [facility] Work Phone: Laboratory - Hematology and Cell countson 02-08-2022 Erythrocyte distribution width (RBC) [Entitic vol] 46.5 fL 35.1-43.9 [facility] Work Phone: Erythrocyte distribution width (RBC) [Ratio] 13.3 % 11.6-14.6 [facility] Work Phone: Immature granulocytes/100 WBC (Bld) 0.400 % 0.0-0.9 [facility] Work Phone: Comment on above: IG% - Immature Granu locytes (promyelocytes, myelocytes and metamyelocytes) > 1% indicates that a LEFT SHIFT is Present. MCH (RBC) [Entitic mass] 29.0 pg 27.0-32.0 [facility] Work Phone: Nucleated RBC/100 WBC (Bld) [Ratio] 0 % 0-5 [facility] Work Phone: MCHC Auto (RBC) [Mass/Vol]on 02-08-2022 MCHC (RBC) [Mass/Vol] 30.8 g/dL 32-36 [facility] Work Phone: No Panel Informationon 02-08 Estimated GFR (MDRD) Amer 28 mL/min >60 [facility] Work Phone: Comment on above: GFR Calc Estimated GFR (MDRD) Non-Af Amer 23 mL/min >60 [facility] Work Phone: Comment on above: Non- GFR Calc Platelets bldon 02-08-2022 Platelets (Bld) [#/Vol] 235 10*3/uL 150-450 [facility] Work Phone: Serum or plasma albumin lesly urement (mass/volume)on 02-08-2022 Albumin [Mass/Vol] 3.4 g/dL 3.2-5.0 [facility] Work Phone: Serum or plasma albumin/glob ulin mass ratioon 02-08-2022 Albumin/Globulin [Mass ratio] 0.8 {ratio} 0.9-2.4 [facility] Work Phone: Serum or plasma calcium lesly urement (mass/volume)on 02-08-2022 Calcium [Mass/Vol] 9.6 mg/dL 8.5-10.1 [facility] Work Phone: Serum or plasma creatinine m easurement (mass/volume)on 02-08-2022 Creatinine [Mass/Vol] 2.28 mg/dL 0.55-1.02 [facility] Work Phone: Comment on above: The validity of the calculated GFR & GFRAA in patients over 70 years has not been determined. Clinical correlation is essential. Serum or plasma urea nitroge n measurement (mass/volume)on 02-08-2022 Urea nitrogen [Mass/Vol] 47 mg/dL 7-18 [facility] Work Phone: Thin prep Papanicolaou smear with manual screeningon 02-08-2022 Thin prep Papanicolaou smear with manual screening 16 U/L 15-37 [facility] Work Phone: Thin prep Papanicolaou smear with manual screening 3 5-15 [facility] Work Phone: Laboratory - Hematology and Cell countson 01-10-2022 HbA1c (Bld) [Mass fraction] 7.9 % [facility] Work Phone: Basophil percentageon 2021 Basophil percentage 4.8 mg/dL 2.5-4.[address] [facility] Work [facility]: Chloride [Moles/Vol] 108 mmol/L 98-107 [facility] Work Phone: Glucose [Mass/Vol] 204 mg/dL 74-106 [facility] Work Phone: Comment on above: Glucose result great er than or equal to 200 mg/dLsuggests DIABETES MELLITUS per A.D.A. criteria. Potassium [Moles/Vol] 4.7 mmol/L 3.5-5.1 [facility] Work Phone: Sodium [Moles/Vol] 138 mmol/L 136-145 [facility] Work Phone: WBC (Bld) [#/Vol] 7.8 10*3/uL 4.4-11.0 [facility] Work Phone: Blood erythrocytes count (nu mber/volume)on 12-24-2021 RBC (Bld) [#/Vol] 3.67 10*6/uL 4.2-5.4 [facility] Work Phone: Blood hemoglobin measurement (mass/volume)on 12-24-2021 Hemoglobin (Bld) [Mass/Vol] 10.9 g/dL 12.0-15.0 [facility] Work Phone: Blood platelet mean volumeon 12-24-2021 Platelet mean volume (Bld) [Entitic vol] 9.8 fL 6.2-12.0 [facility] Work Phone: Determination of erythrocyte mean corpuscular volume (MCV)on 12-24-2021 MCV (RBC) [Entitic vol] 92.1 fL 81-99 [facility] Work Phone: Hematocrit Auto (Bld) [Volum e fraction]on 12-24-2021 Hematocrit (Bld) [Volume fraction] 33.8 % 37-47 [facility] Work Phone: Laboratory - Chemistry and C hemistry - challengeon 12-24-2021 CO2 [Moles/Vol] 25.0 mmol/L 21.0-32.0 [facility] Work Phone: Urea nitrogen/Creatinine [Mass ratio] 23.2 mg/mg 10-20 [facility] Work Phone: Laboratory - Hematology and Cell countson 12-24-2021 Erythrocyte distribution width (RBC) [Entitic vol] 47.2 fL 35.1-43.9 [facility] Work Phone: Erythrocyte distribution width (RBC) [Ratio] 14.0 % 11.6-14.6 [facility] Work Phone: MCH (RBC) [Entitic mass] 29.7 pg 27.0-32.0 [facility] Work Phone: MCHC Auto (RBC) [Mass/Vol]on 12-24-2021 MCHC (RBC) [Mass/Vol] 32.2 g/dL 32-36 [facility] Work Phone: No Panel Informationon 12-24 Estimated GFR (MDRD) Amer 36 mL/min >60 [facility] Work Phone: Comment on above: GFR Calc Estimated GFR (MDRD) Non-Af Amer 29 mL/min >60 [facility] Work Phone: Comment on above: Non- GFR Calc Parathyroid Hormone (Intact) 55.7 pg/mL 18.4-80.1 [facility] Work Phone: Vitamin D 25-Hydroxy 45.6 ng/mL [facility] Work Phone: Comment on above: Vitamin D 25(OH) Sta tus Range Deficiency <20 ng/mL (50nmol/L) Insufficiency 20 - 30 ng/mL (50 - 75 nmol/L) Sufficiency 30 - 100 ng/mL (75 - 250 nmol/L) Toxicity >100 ng/mL (>250 nmol/L) Platelets bldon 12-24-2021 Platelets (Bld) [#/Vol] 225 10*3/uL 150-450 [facility] Work Phone: Serum or plasma albumin lesly urement (mass/volume)on 12-24-2021 Albumin [Mass/Vol] 3.2 g/dL 3.2-5.0 [facility] Work Phone: Serum or plasma calcium lesly urement (mass/volume)on 12-24-2021 Calcium [Mass/Vol] 8.9 mg/dL 8.5-10.1 [facility] Work Phone: Serum or plasma creatinine m easurement (mass/volume)on 12-24-2021 Creatinine [Mass/Vol] 1.85 mg/dL 0.55-1.02 [facility] Work Phone: Comment on above: The validity of the calculated GFR & GFRAA in patients over 70 years has not been determined. Clinical correlation is essential. Serum or plasma urea nitroge n measurement (mass/volume)on 12-24-2021 Urea nitrogen [Mass/Vol] 43 mg/dL 7-18 [facility] Work Phone: Basophil percentageon 2021 Bilirubin [Mass/Vol] 0.30 mg/dL 0.20-1.00 [facility] Work Phone: Comment on above: For patients on eltr ombopag therapy, use of Dimension [place] TBIL is not recommended. Chloride [Moles/Vol] 104 mmol/L 98-107 [facility] Work Phone: Cholesterol [Mass/Vol] 119 mg/dL <200 [facility] Work Phone: Comment on above: <200 mg/dL Desirable 200-240 mg/dL Borderline >240 mg/dL High Risk Glucose [Mass/Vol] 293 mg/dL 74-106 [facility] Work Phone: Comment on above: Glucose result great er than or equal to 200 mg/dLsuggests DIABETES MELLITUS per A.D.A. criteria. Potassium [Moles/Vol] 5.0 mmol/L 3.5-5.1 [facility] Work Phone: Protein [Mass/Vol] 7.2 g/dL 6.4-8.2 [facility] Work Phone: Sodium [Moles/Vol] 136 mmol/L 136-145 [facility] Work Phone: Triglyceride [Mass/Vol] 79 mg/dL [facility] Work Phone: Comment on above: The drugs N-Acetylcy steine and Metamizole may falsely depress this assay.Serum Triglycerides Reference Interval Normal <150 mg/dL Borderline high 150 - 199 mg/dL High 200 - 499 mg/dL Very High > or = 500 mg/dL WBC (Bld) [#/Vol] 6.4 10*3/uL 4.4-11.0 [facility] Work Phone: Blood erythrocytes count (nu mber/volume)on 12-19-2021 RBC (Bld) [#/Vol] 3.58 10*6/uL 4.2-5.4 [facility] Work Phone: Blood hemoglobin measurement (mass/volume)on 12-19-2021 Hemoglobin (Bld) [Mass/Vol] 10.4 g/dL 12.0-15.0 [facility] Work Phone: Blood platelet mean volumeon 12-19-2021 Platelet mean volume (Bld) [Entitic vol] 10.6 fL 6.2-12.0 [facility] Work Phone: Determination of erythrocyte mean corpuscular volume (MCV)on 12-19-2021 MCV (RBC) [Entitic vol] 93.9 fL 81-99 [facility] Work Phone: Hematocrit Auto (Bld) [Volum e fraction]on 12-19-2021 Hematocrit (Bld) [Volume fraction] 33.6 % 37-47 [facility] Work Phone: Iron measurement (mass/mass) on 12-19-2021 Iron (Unsp spec) [Mass/Mass] 50 ug/dL 50-170 [facility] Work Phone: Laboratory - Chemistry and C hemistry - challengeon 12-19-2021 ALP [Catalytic activity/Vol] 90 U/L 45-117 [facility] Work Phone: ALT [Catalytic activity/Vol] 21 U/L 13-56 [facility] Work Phone: CO2 [Moles/Vol] 26.0 mmol/L 21.0-32.0 [facility] Work Phone: Globulin (S) [Mass/Vol] 4.1 g/dL 2.2-4.2 [facility] Work Phone: Urea nitrogen/Creatinine [Mass ratio] 22.0 mg/mg 10-20 [facility] Work Phone: Laboratory - Hematology and Cell countson 12-19-2021 Erythrocyte distribution width (RBC) [Entitic vol] 47.5 fL 35.1-43.9 [facility] Work Phone: Erythrocyte distribution width (RBC) [Ratio] 13.8 % 11.6-14.6 [facility] Work Phone: MCH (RBC) [Entitic mass] 29.1 pg 27.0-32.0 [facility] Work Phone: MCHC Auto (RBC) [Mass/Vol]on 12-19-2021 MCHC (RBC) [Mass/Vol] 31.0 g/dL 32-36 [facility] Work Phone: No Panel Informationon 12-19 Estimated GFR (MDRD) Amer 35 mL/min >60 [facility] Work Phone: Comment on above: GFR Calc Estimated GFR (MDRD) Non-Af Amer 29 mL/min >60 [facility] Work Phone: Comment on above: Non- GFR Calc Parathyroid Hormone (Intact) 59.6 pg/mL 18.4-80.1 [facility] Work Phone: Thyroid Stimulating Hormone (TSH) 1.48 uIU/mL 0.358-3.74 [facility] Work Phone: Vitamin D 25-Hydroxy 46.2 ng/mL [facility] Work Phone: Comment on above: Vitamin D 25(OH) Sta tus Range Deficiency <20 ng/mL (50nmol/L) Insufficiency 20 - 30 ng/mL (50 - 75 nmol/L) Sufficiency 30 - 100 ng/mL (75 - 250 nmol/L) Toxicity >100 ng/mL (>250 nmol/L) Platelets bldon 12-19-2021 Platelets (Bld) [#/Vol] 237 10*3/uL 150-450 [facility] Work Phone: Serum or plasma albumin lesly urement (mass/volume)on 12-19-2021 Albumin [Mass/Vol] 3.1 g/dL 3.2-5.0 [facility] Work Phone: Serum or plasma albumin/glob ulin mass ratioon 12-19-2021 Albumin/Globulin [Mass ratio] 0.8 {ratio} 0.9-2.4 [facility] Work Phone: Serum or plasma calcium lesly urement (mass/volume)on 12-19-2021 Calcium [Mass/Vol] 8.8 mg/dL 8.5-10.1 [facility] Work Phone: Serum or plasma cholesterol in HDL measurement (mass/volume)on 12-19-2021 Cholesterol in HDL [Mass/Vol] 59 mg/dL [facility] Work Phone: Comment on above: The drugs N-Acetylcy steine and Metamizole may falsely depress this assay. Reference Range HDL <40 mg/dL Low HDL Cholesterol HDL >or= 60 mg/dL High HDL Cholesterol Serum or plasma cholesterol in VLDL measurement (mass/volume)on 12-19-2021 Cholesterol in VLDL [Mass/Vol] 16 mg/dL 5-40 [facility] Work Phone: Serum or plasma creatinine m easurement (mass/volume)on 12-19-2021 Creatinine [Mass/Vol] 1.86 mg/dL 0.55-1.02 [facility] Work Phone: Comment on above: The validity of the calculated GFR & GFRAA in patients over 70 years has not been determined. Clinical correlation is essential. Serum or plasma ferritin allyn surement (mass/volume)on 12-19-2021 Ferritin [Mass/Vol] 38 ng/mL 8-252 [facility] Work Phone: Serum or plasma low density lipoprotein (LDL) cholesterol measurement (mass/volume)on 12-19-2021 Cholesterol in LDL [Mass/Vol] 44 mg/dL 0-130 [facility] Work Phone: Serum or plasma urea nitroge n measurement (mass/volume)on 12-19-2021 Urea nitrogen [Mass/Vol] 41 mg/dL 7-18 [facility] Work Phone: Thin prep Papanicolaou smear with manual screeningon 12-19-2021 Thin prep Papanicolaou smear with manual screening 15 U/L 15-37 [facility] Work Phone: Thin prep Papanicolaou smear with manual screening 6 5-15 [facility] Work Phone: Office Visit: Diabetes follo w upon 03-05-2017 Dietary management education, guidance, and counseling (procedure) yes Invalid Interpretation Code [facility] Work Phone: Documentation of current medications (procedure) Done Invalid Interpretation Code [facility] Work Phone: Fall risk assessment Fall risk assessment Invali d Interpretation Code [facility] Work Phone: Smoking cessation education (procedure) yes Invalid Interpretation Code [facility] Work Phone: Tobacco smoking status NHIS Former Invalid Interpretation Code [facility] Work Phone: Tobacco use CPHS Current every day smoker Invalid Interpretation Code [facility] Work Phone: Office Visit: Diabetic Evalu ationon 02-18-2017 Adolescent depression screening assessment Adolescent depression screening assessment Invalid Interpretation Code [facility] Work Phone: Fall risk assessment No Invalid Interpretation Code [facility] Work Phone: Chart Maintenanceon 01-08-20 17 HbA1c 10.0 % Invalid Interpretation Code [facility] Work Phone: Office Visit: Diabetic Evalu ationon 11-04-2011 General categories [interpretation] of Cervical or vaginal smear or scraping by Cyto stain Hysteectomy Invalid Interpretation Code [facility] Work Phone: Vital Signs Date Time Vital Sign Value Performing Clinician Facility 03-22-2025 13:04-0400 Body height 167.[address] Christy Huerta DO Work Phone: [facility] 03-22-2025 13:04-0400 Body temperature 98.2 [degF] Dr. Christy Huerta DO Work Phone: [facility] 03-22-2025 13:04-0400 Diastolic blood pressure 66 mm[Hg] Dr. Christy Huerta DO Work Phone: [facility] 03-22-2025 13:04-0400 Heart rate 55 /min Dr. Christy Huerta DO Work Phone: [facility] 03-22-2025 13:04-0400 Respiratory rate 16 /min Dr. Christy Huerta DO Work Phone: [facility] 03-22-2025 13:04-0400 SaO2% (BldA) [Mass fraction] 100 % Dr. Christy Huerta DO Work Phone: [facility] 03-22-2025 13:04-0400 Systolic blood pressure 177 mm[Hg] Dr. Christy Huerta DO Work Phone: [facility] 01-27-2025 08:42-0400 Body mass index (BMI) [Ratio] 17.2 kg/m2 Dr. Christy Huerta DO Work Phone: [facility] 01-27-2025 08:42-0400 Body weight 48.[address] Christy Huerta DO Work Phone: [facility] 01-27-2025 08:42-0400 Diastolic blood pressure 72 mm[Hg] Dr. Christy Huerta DO Work Phone: [facility] 01-27-2025 08:42-0400 Heart rate 65 /min Dr. Christy Huerta DO Work Phone: [facility] 01-27-2025 08:42-0400 Inhaled oxygen flow rate 3 L/min Dr. Christy Huerta DO Work Phone: [facility] 01-27-2025 08:42-0400 SaO2% (BldA) [Mass fraction] 99 % Dr. Christy Huerta DO Work Phone: [facility] 01-27-2025 08:42-0400 Systolic blood pressure 172 mm[Hg] Dr. Christy Huerta DO Work Phone: [facility] 01-11-2025 15:17-0400 Body temperature 97.8 [degF] Dr. Bird Lujan MD Work Phone: [facility] 01-11-2025 15:17-0400 Body weight 50.[address] Bird Lujan MD Work Phone: [facility] 01-11-2025 15:17-0400 Diastolic blood pressure 52 mm[Hg] Dr. Bird Lujan MD Work Phone: [facility] 01-11-2025 15:17-0400 Heart rate 60 /min Dr. Bird Lujan MD Work Phone: [facility] 01-11-2025 15:17-0400 Inhaled oxygen flow rate 3 L/min Dr. Bird Lujan MD Work Phone: [facility] 01-11-2025 15:17-0400 Respiratory rate 16 /min Dr. Bird Lujan MD Work Phone: [facility] 01-11-2025 15:17-0400 SaO2% (BldA) [Mass fraction] 100 % Dr. Bird Lujan MD Work Phone: [facility] 01-11-2025 15:17-0400 Systolic blood pressure 125 mm[Hg] Dr. Bird Lujan MD Work Phone: 4(512)001-441502 [address] [place] [address] 01-10-2025 09:10-0400 Body height 167.[address] Bird Lujan MD Work Phone: 8(057)071-415308 [place] [address] 01-06-2025 09:46-0500 Inhaled oxygen flow rate 2 L/min Dr. Bird Lujan MD Work Phone: 2(212)043-035108 [place] [address] 01-06-2025 08:32-0500 Heart rate 65 /min Dr. Bird Lujan MD Work Phone: 5(165)059-482408 [place] [address] 01-06-2025 08:27-0500 Body temperature 97.6 [degF] Dr. Bird Lujan MD Work Phone: 4(508)966-437181 [address] 01-06-2025 08:27-0500 Diastolic blood pressure 54 mm[Hg] Dr. Bird Lujan MD Work Phone: 7(746)623-279402 [address] [place] [address] 01-06-2025 08:27-0500 Respiratory rate 18 /min Dr. Bird Lujan MD Work Phone: 3(179)983-436802 [place] [address] 01-06-2025 08:27-0500 SaO2% (BldA) [Mass fraction] 99 % Dr. Bird Lujan MD Work Phone: 3(567)119-457402 [address] [place] [address] 01-06-2025 08:27-0500 Systolic blood pressure 143 mm[Hg] Dr. Bird Lujan MD Work Phone: 6(595)649-188508 [place] [address] 01-05-2025 16:00-0500 Body mass index (BMI) [Ratio] 16.5 kg/m2 Dr. Bird Lujan MD Work Phone: 2(088)077-010402 [place] [address] 01-05-2025 16:00-0500 Body weight 46.[address] Bird Lujan MD Work Phone: [facility] 01-05-2025 14:33-0500 Inhaled oxygen concentration 30 % Dr. Bird Lujan MD Work Phone: [facility] 12-28-2024 19:34-0500 Body temperature 97.7 [degF] Dr. Bird Lujan MD Work Phone: 1(498)462-845802 [address] [place] [address] 12-28-2024 19:34-0500 Diastolic blood pressure 54 mm[Hg] Dr. Bird Lujan MD Work Phone: 7(599)909-887902 [place] [address] 12-28-2024 19:34-0500 Heart rate 61 /min Dr. Bird Lujan MD Work Phone: 8(372)415-270402 [place] [address] 12-28-2024 19:34-0500 Respiratory rate 16 /min Dr. Bird Lujan MD Work Phone: 1(787)328-318402 [place] [address] 12-28-2024 19:34-0500 SaO2% (BldA) [Mass fraction] 100 % Dr. Bird Lujan MD Work Phone: 7(958)872-033902 [place] [address] 12-28-2024 19:34-0500 Systolic blood pressure 118 mm[Hg] Dr. Bird Lujan MD Work Phone: 1(501)183-589702 [address] [place] [address] 12-28-2024 13:56-0500 Inhaled oxygen flow rate 6 L/min Dr. Bird Lujan MD Work Phone: [facility] 12-28-2024 10:12-0500 Body mass index (BMI) [Ratio] 17.8 kg/m2 Dr. Bird Lujan MD Work Phone: [facility] 12-28-2024 10:12-0500 Body weight [address] Bird Lujan MD Work Phone: 7(389)147-204602 [place] [address] 12-16-2024 13:53-0500 Body mass index (BMI) [Ratio] 17.4 kg/m2 Dr. Bird Lujan MD Work Phone: [facility] 12-16-2024 13:53-0500 Body weight 48.[address] Bird Lujan MD Work Phone: [facility] 12-16-2024 13:53-0500 Diastolic blood pressure 71 mm[Hg] Dr. Bird Lujan MD Work Phone: 0(734)[phone] [place] [address] 12-16-2024 13:53-0500 Heart rate 61 /min Dr. Bird Lujan MD Work Phone: 8([phone])[phone] [place] [address] 12-16-2024 13:53-0500 Inhaled oxygen flow rate 3 L/min Dr. Bird Lujan MD Work Phone: 7(040)590-089281 [address] 12-16-2024 13:53-0500 Respiratory rate 18 /min Dr. Bird Lujan MD Work Phone: 2(843)154-115902 [address] [place] [address] 12-16-2024 13:53-0500 SaO2% (BldA) [Mass fraction] 100 % Dr. Bird Lujan MD Work Phone: [facility] 12-16-2024 13:53-0500 Systolic blood pressure 164 mm[Hg] Dr. Bird Lujan MD Work Phone: [facility] 12-02-2024 14:48-0500 Body temperature 98.4 [degF] Dr. Bird Lujan MD Work Phone: 3(916)568-054502 [address] [place] [address] 12-02-2024 14:48-0500 Body weight 49.[address] Bird Lujan MD Work Phone: [facility] 12-02-2024 14:48-0500 Diastolic blood pressure 65 mm[Hg] Dr. Bird Lujan MD Work Phone: [facility] 12-02-2024 14:48-0500 Heart rate 65 /min Dr. Bird Lujan MD Work Phone: [facility] 12-02-2024 14:48-0500 Inhaled oxygen flow rate 3 L/min Dr. Bird Lujan MD Work Phone: 5(854)315-066102 [address] [place] [address] 12-02-2024 14:48-0500 Respiratory rate 16 /min Dr. Bird Lujan MD Work Phone: 1(230)753-886608 [place] [address] 12-02-2024 14:48-0500 SaO2% (BldA) [Mass fraction] 99 % Dr. Bird Lujan MD Work Phone: 9(903)450-575308 [place] [address] 12-02-2024 14:48-0500 Systolic blood pressure 161 mm[Hg] Dr. Bird Lujan MD Work Phone: 2(237)005-561808 [place] [address] 11-20-2024 23:26-0500 Body temperature 98.3 [degF] Dr. Bird Lujan MD Work Phone: 1(719)539-735008 [place] [address] 11-20-2024 23:26-0500 Diastolic blood pressure 49 mm[Hg] Dr. Bird Lujan MD Work Phone: 8(985)258-665608 [place] [address] 11-20-2024 23:26-0500 Heart rate 73 /min Dr. Bird Lujan MD Work Phone: 6(926)828-094008 [place] [address] 11-20-2024 23:26-0500 Respiratory rate 19 /min Dr. Bird Lujan MD Work Phone: 0(987)480-468408 [place] [address] 11-20-2024 23:26-0500 SaO2% (BldA) [Mass fraction] 100 % Dr. Bird Lujan MD Work Phone: 7(076)789-333108 [place] [address] 11-20-2024 23:26-0500 Systolic blood pressure 119 mm[Hg] Dr. Bird Lujan MD Work Phone: 1(788)012-059108 [place] [address] 11-20-2024 18:44-0500 Body mass index (BMI) [Ratio] 17.9 kg/m2 Dr. Bird Lujan MD Work Phone: 3(384)801-694908 [place] [address] 11-20-2024 18:44-0500 Body weight 50.[address] Bird Lujan MD Work Phone: 8(246)820-937602 [address] [place] [address] 11-20-2024 18:44-0500 Inhaled oxygen flow rate 3 L/min Dr. Bird Lujan MD Work Phone: 6(162)152-430302 [place] [address] 11-04-2024 16:07-0500 Body mass index (BMI) [Ratio] 18.1 kg/m2 Dr. Bird Lujan MD Work Phone: 0(671)012-285008 [place] [address] 11-04-2024 16:07-0500 Body temperature 97.2 [degF] Dr. Bird Luajn MD Work Phone: 8(521)793-485208 [place] [address] 11-04-2024 16:07-0500 Body weight 50.[address] Bird Lujan MD Work Phone: 1(765)266-659108 [place] [address] 11-04-2024 16:07-0500 Diastolic blood pressure 84 mm[Hg] Dr. Bird Lujan MD Work Phone: 5(461)594-510408 [place] [address] 11-04-2024 16:07-0500 Heart rate 72 /min Dr. Bird Lujan MD Work Phone: 5(519)886-193808 [place] [address] 11-04-2024 16:07-0500 Respiratory rate 15 /min Dr. Bird Lujan MD Work Phone: 5(111)687-169508 [place] [address] 11-04-2024 16:07-0500 SaO2% (BldA) [Mass fraction] 100 % Dr. Bird Lujan MD Work Phone: 7(780)374-626708 [place] [address] 11-04-2024 16:07-0500 Systolic blood pressure 194 mm[Hg] Dr. Bird Lujan MD Work Phone: 4(528)755-668108 [place] [address] 11-04-2024 15:51-0500 Diastolic blood pressure 82 mm[Hg] Dr. Bird Lujan MD Work Phone: 3(500)640-964108 [place] [address] 11-04-2024 15:51-0500 Systolic blood pressure 218 mm[Hg] Dr. Bird Lujan MD Work Phone: 2(758)872-153908 [place] [address] 11-04-2024 08:00-0500 Body mass index (BMI) [Ratio] 18.1 kg/m2 Dr. Bird Lujan MD Work Phone: [facility] 11-04-2024 08:00-0500 Body temperature 97.4 [degF] Dr. Bird Lujan MD Work Phone: [facility] 11-04-2024 08:00-0500 Body weight 50.[address] Bird Lujan MD Work Phone: 2(208)464-419002 [place] [address] 11-04-2024 08:00-0500 Heart rate 75 /min Dr. Bird Lujan MD Work Phone: 1(474)653-995981 [address] 11-04-2024 08:00-0500 Inhaled oxygen flow rate 3 L/min Dr. Bird Lujan MD Work Phone: 1(740)843-320002 [place] [address] 11-04-2024 08:00-0500 Respiratory rate 20 /min Dr. Bird Lujan MD Work Phone: 5(571)963-104602 [address] [place] [address] 11-04-2024 08:00-0500 SaO2% (BldA) [Mass fraction] 99 % Dr. Bird Lujan MD Work Phone: [facility] 10-07-2024 13:43-0500 Body mass index (BMI) [Ratio] 16.8 kg/m2 Dr. Bird Lujan MD Work Phone: 7(481)732-142202 [place] [address] 10-07-2024 13:43-0500 Body weight 47.[address] Bird Lujan MD Work Phone: [facility] 10-07-2024 13:43-0500 Diastolic blood pressure 73 mm[Hg] Dr. Bird Lujan MD Work Phone: [facility] 10-07-2024 13:43-0500 Heart rate 76 /min Dr. Bird Lujan MD Work Phone: [facility] 10-07-2024 13:43-0500 Inhaled oxygen flow rate 3 L/min Dr. Bird Lujan MD Work Phone: [facility] 10-07-2024 13:43-0500 SaO2% (BldA) [Mass fraction] 100 % Dr. Bird Lujan MD Work Phone: [facility] 10-07-2024 13:43-0500 Systolic blood pressure 172 mm[Hg] Dr. Bird Lujan MD Work Phone: [facility] 08-24-2024 15:33-0400 Heart rate 83 /min Lucina [employer] DO Work Phone: [facility] 08-24-2024 15:33-0400 Respiratory rate 12 /min Lucina Cephason[employer]angelia DO Work Phone: [facility] 08-24-2024 15:33-0400 SaO2% (BldA) [Mass fraction] 99 % [employer]ina [employer] DO Work Phone: [facility] 08-24-2024 07:34-0400 Body temperature 97.9 [degF] Lucina [employer] DO Work Phone: [facility] 08-24-2024 07:34-0400 Diastolic blood pressure 58 mm[Hg] [employer]pl[employer]angel[employer] DO Work Phone: [facility] 08-24-2024 07:34-0400 Systolic blood pressure 141 mm[Hg] [employer]pl[employer]angel[employer] DO Work Phone: [facility] 08-24-2024 06:00-0400 Body mass index (BMI) [Ratio] 19.43 kg/m2 [employer] DO Work Phone: [facility] 08-24-2024 06:00-0400 Body weight 54.6 kg [employer] DO Work Phone: [facility] 08-22-2024 23:29-0400 Body height 167.6 cm [employer] DO Work Phone: [facility] 08-21-2024 15:09-0400 SaO2% (BldA) [Mass fraction] 96.1 % Lucina Galvan DO Work Phone: [facility] 08-21-2024 09:09-0400 SaO2% (BldA) [Mass fraction] 96.6 % Lucina Galvan DO Work Phone: [facility] 08-20-2024 21:28-0400 SaO2% (BldA) [Mass fraction] 98.1 % Lucina Galvan DO Work Phone: [facility] 08-20-2024 16:12-0400 SaO2% (BldA) [Mass fraction] 96.9 % Lucina Galvan DO Work Phone: [facility] 08-20-2024 13:02-0400 SaO2% (BldA) [Mass fraction] 68.2 % Lucina Gavlan DO Work Phone: [facility] 08-20-2024 10:31-0400 SaO2% (BldA) [Mass fraction] 92.1 % Lucina Galvan DO Work Phone: [facility] 08-13-2024 07:08-0400 SaO2% (BldA) [Mass fraction] 95.8 % Lucina Galvan DO Work Phone: [facility] 08-10-2024 12:21-0400 Diastolic blood pressure 56 mm[Hg] Colin Peoples MD Work Phone: [facility] 08-10-2024 12:21-0400 Heart rate 81 /min Colin Peoples MD Work Phone: [facility] 08-10-2024 12:21-0400 Systolic blood pressure 133 mm[Hg] Colin Peoples MD Work Phone: [facility] 08-10-2024 12:17-0400 Body temperature 97 [degF] Colin Peoples MD Work Phone: [facility] 08-10-2024 12:17-0400 Respiratory rate 16 /min Colin Peoples MD Work Phone: [facility] 08-10-2024 12:17-0400 SaO2% (BldA) [Mass fraction] 100 % Colin Peoples MD Work Phone: [facility] 08-07-2024 04:00-0400 Body mass index (BMI) [Ratio] 20.43 kg/m2 Colin Peoples MD Work Phone: [facility] 08-07-2024 04:00-0400 Body weight 57.4 kg Colin Peoples MD Work Phone: [facility] 08-03-2024 13:55-0400 Body height 167.6 cm Colin Peoples MD Work Phone: [facility] 07-31-2024 06:18-0400 SaO2% (BldA) [Mass fraction] 98.0 % Colin Peoples MD Work Phone: [facility] 02-05-2024 07:48-0400 Body height 167.[address] Sin Lujan Work Phone: [facility] 02-05-2024 07:48-0400 Body mass index (BMI) [Ratio] 15.1 kg/m2 Dr. Sin Lujan Work Phone: [facility] 02-05-2024 07:48-0400 Body temperature 94.6 [degF] Dr. Sin Lujan Work Phone: [facility] 02-05-2024 07:48-0400 Body weight 42.[address] Sin Lujan Work Phone: [facility] 02-05-2024 07:48-0400 Diastolic blood pressure 66 mm[Hg] Dr. Sin Lujan Work Phone: [facility] 02-05-2024 07:48-0400 Heart rate 61 /min Dr. Sin Lujan Work Phone: [facility] 02-05-2024 07:48-0400 Inhaled oxygen flow rate 3 L/min Dr. Sin Lujan Work Phone: [facility] 02-05-2024 07:48-0400 Respiratory rate 18 /min Dr. Sin Lujan Work Phone: [facility] 02-05-2024 07:48-0400 SaO2% (BldA) [Mass fraction] 99 % Dr. Sin Lujan Work Phone: [facility] 02-05-2024 07:48-0400 Systolic blood pressure 107 mm[Hg] Dr. Sin Lujan Work Phone: [facility] 12-03-2023 10:07-0500 Body height 167.[address] Sin Lujan Work Phone: 0(714)711-132881 [address] 12-03-2023 10:07-0500 Body mass index (BMI) [Ratio] 16.2 kg/m2 Dr. Sin Lujan Work Phone: [facility] 12-03-2023 10:07-0500 Body temperature 97.8 [degF] Dr. Sin Lujan Work Phone: [facility] 12-03-2023 10:07-0500 Body weight 45.[address] Sin Lujan Work Phone: [facility] 12-03-2023 10:07-0500 Diastolic blood pressure 75 mm[Hg] Dr. Sin Lujan Work Phone: [facility] 12-03-2023 10:07-0500 Heart rate 52 /min Dr. Sin Lujan Work Phone: [facility] 12-03-2023 10:07-0500 Respiratory rate 16 /min Dr. Sin Lujan Work Phone: [facility] 12-03-2023 10:07-0500 SaO2% (BldA) [Mass fraction] 92 % Dr. Sin Lujan Work Phone: [facility] 12-03-2023 10:07-0500 Systolic blood pressure 148 mm[Hg] Dr. Sin Lujan Work Phone: [facility] 11-18-2023 10:57-0500 Body height 167.[address] Sin Lujan Work Phone: [facility] 11-18-2023 10:57-0500 Body mass index (BMI) [Ratio] 16 kg/m2 Dr. Sin Lujan Work Phone: [facility] 11-18-2023 10:57-0500 Body weight 44.[address] Sin Lujan Work Phone: [facility] 11-18-2023 10:57-0500 Diastolic blood pressure 72 mm[Hg] Dr. Sin Lujan Work Phone: [facility] 11-18-2023 10:57-0500 Heart rate 59 /min Dr. Sin Lujan Work Phone: [facility] 11-18-2023 10:57-0500 Inhaled oxygen flow rate 3 L/min Dr. Sin Lujan Work Phone: [facility] 11-18-2023 10:57-0500 Respiratory rate 18 /min Dr. Sin Lujan Work Phone: [facility] 11-18-2023 10:57-0500 SaO2% (BldA) [Mass fraction] 99 % Dr. Sin Lujan Work Phone: [facility] 11-18-2023 10:57-0500 Systolic blood pressure 148 mm[Hg] Dr. Sin Lujan Work Phone: [facility] 10-29-2023 08:59-0500 Body height 167.[address] Sin Lujan Work Phone: [facility] 10-29-2023 08:59-0500 Body mass index (BMI) [Ratio] 15.8 kg/m2 Dr. Sin Lujan Work Phone: [facility] 10-29-2023 08:59-0500 Body temperature 97.4 [degF] Dr. Sin Lujan Work Phone: [facility] 10-29-2023 08:59-0500 Body weight 44.[address] Sin Lujan Work Phone: [facility] 10-29-2023 08:59-0500 Diastolic blood pressure 63 mm[Hg] Dr. Sin Lujan Work Phone: [facility] 10-29-2023 08:59-0500 Heart rate 67 /min Dr. Sin Lujan Work Phone: [facility] 10-29-2023 08:59-0500 Inhaled oxygen flow rate 3 L/min Dr. Sin Lujan Work Phone: [facility] 10-29-2023 08:59-0500 Respiratory rate 22 /min Dr. Sin Lujan Work Phone: [facility] 10-29-2023 08:59-0500 SaO2% (BldA) [Mass fraction] 99 % Dr. Sin Lujan Work Phone: [facility] 10-29-2023 08:59-0500 Systolic blood pressure 121 mm[Hg] Dr. Sin Lujan Work Phone: [facility] 07-14-2023 10:44-0400 Body height 167.64 cm [employer]EL[employer] OPERATORPaddy Davis STEELSCOPE OPERATOR Work Phone: [facility] 07-14-2023 10:44-0400 Body mass index (BMI) [Ratio] 15.3 kg/m2 [employer]ELSCOPE OPERATOR-Marquis Davis STEELSCOPE OPERATOR Work Phone: [facility] 07-14-2023 10:44-0400 Body temperature 97.8 [degF] STEELSCOPE OPERATORPaddy Davis STEELSCOPE OPERATOR Work Phone: [facility] 07-14-2023 10:44-0400 Body weight 43.26 kg STEELSCOPE OPERATOR-C Jeanna Davis STEELSCOPE OPERATOR Work Phone: [facility] 07-14-2023 10:44-0400 Diastolic blood pressure 72 mm[Hg] [employer]SC[employer] OPERATOR-C Jeanna Davis STEELSCOPE OPERATOR Work Phone: [facility] 07-14-2023 10:44-0400 Heart rate 70 /min STEELSCOPE OPERATOR-C Jeanna Davis STEELSCOPE OPERATOR Work Phone: [facility] 07-14-2023 10:44-0400 Respiratory rate 16 /min [employer]SC[employer] OPERATOR-C Jeanna Davis STEELSCOPE OPERATOR Work Phone: [facility] 07-14-2023 10:44-0400 SaO2% (BldA) [Mass fraction] 95 % [employer] OPERATOR-C Jeanna Davis STEELSCOPE OPERATOR Work Phone: [facility] 07-14-2023 10:44-0400 Systolic blood pressure 144 mm[Hg] STEELSCOPE OPERATOR-C Jeanna Davis STEELSCOPE OPERATOR Work Phone: [facility] 06-25-2023 05:47-0400 Body mass index (BMI) [Ratio] 15.7 kg/m2 [employer]ELSCOPE OPERATOR-C Jeanna Davis STEELSCOPE OPERATOR Work Phone: [facility] 06-25-2023 05:47-0400 Body temperature 96.8 [degF] STEELSCOPE OPERATOR-C Jeanna Davis STEELSCOPE OPERATOR Work Phone: [facility] 06-25-2023 05:47-0400 Body weight 44.45 kg [employer]ELSCOPE OPERATOR-C Jeanna Davis STEELSCOPE OPERATOR Work Phone: [facility] 06-25-2023 05:47-0400 Diastolic blood pressure 75 mm[Hg] STEELSCOPE OPERATOR-C Jeanna Davis STEELSCOPE OPERATOR Work Phone: [facility] 06-25-2023 05:47-0400 Heart rate 62 /min STEELSCOPE OPERATOR-C Jeanna Davis STEELSCOPE OPERATOR Work Phone: [facility] 06-25-2023 05:47-0400 Respiratory rate 16 /min STEELSCOPE OPERATOR-C Jeanna Davis STEELSCOPE OPERATOR Work Phone: [facility] 06-25-2023 05:47-0400 SaO2% (BldA) [Mass fraction] 96 % [employer]ELSCOPE OPERATOR-C Jeanna Davis STEELSCOPE OPERATOR Work Phone: [facility] 06-25-2023 05:47-0400 Systolic blood pressure 136 mm[Hg] STEELSCOPE OPERATOR-C Jeanna Davis STEELSCOPE OPERATOR Work Phone: [facility] 06-12-2023 08:36-0400 Body height 167.[address] Sin Lujan Work Phone: [facility] 06-12-2023 08:36-0400 Body weight 45.[address] Sin Lujan Work Phone: [facility] 06-12-2023 08:36-0400 Heart rate 59 /min Dr. Sin Lujan Work Phone: [facility] 06-12-2023 08:36-0400 Inhaled oxygen flow rate 2 L/min Dr. Sin Lujan Work Phone: [facility] 06-12-2023 08:36-0400 SaO2% (BldA) [Mass fraction] 89 % Dr. Sin Lujan Work Phone: [facility] 04-09-2023 14:31-0400 Body height 167.[address] Sin Lujan Work Phone: [facility] 04-09-2023 14:31-0400 Body mass index (BMI) [Ratio] 16 kg/m2 Dr. Sin Lujan Work Phone: [facility] 04-09-2023 14:31-0400 Body weight 44.[address] Sin Lujan Work Phone: [facility] 04-09-2023 14:31-0400 Diastolic blood pressure 65 mm[Hg] Dr. Sin Lujan Work Phone: [facility] 04-09-2023 14:31-0400 Heart rate 59 /min Dr. Sin Lujan Work Phone: [facility] 04-09-2023 14:31-0400 Respiratory rate 18 /min Dr. Sin Lujan Work Phone: [facility] 04-09-2023 14:31-0400 Systolic blood pressure 113 mm[Hg] Dr. Sin Lujan Work Phone: [facility] 02-17-2023 07:47-0400 Body height 167.[address] Sin Lujan Work Phone: [facility] 02-17-2023 07:47-0400 Body mass index (BMI) [Ratio] 16 kg/m2 Dr. Sin Lujan Work Phone: [facility] 02-17-2023 07:47-0400 Body temperature 97 [degF] Dr. Sin Lujan Work Phone: [facility] 02-17-2023 07:47-0400 Body weight 44.[address] Sin Lujan Work Phone: [facility] 02-17-2023 07:47-0400 Diastolic blood pressure 58 mm[Hg] Dr. Sin Lujan Work Phone: [facility] 02-17-2023 07:47-0400 Heart rate 69 /min Dr. Sin Lujan Work Phone: [facility] 02-17-2023 07:47-0400 Respiratory rate 18 /min Dr. Sin Lujan Work Phone: [facility] 02-17-2023 07:47-0400 SaO2% (BldA) [Mass fraction] 95 % Dr. Sin Lujan Work Phone: [facility] 02-17-2023 07:47-0400 Systolic blood pressure 98 mm[Hg] Dr. Sin Lujan Work Phone: [facility] 01-01-2023 13:19-0500 Body mass index (BMI) [Ratio] 16.2 kg/m2 Dr. Sin Lujan Work Phone: [facility] 01-01-2023 13:19-0500 Body temperature 96.9 [degF] Dr. Sin Lujan Work Phone: [facility] 01-01-2023 13:19-0500 Body weight 45.[address] Sin Lujan Work Phone: [facility] 01-01-2023 13:19-0500 Diastolic blood pressure 77 mm[Hg] Dr. Sin Lujan Work Phone: [facility] 01-01-2023 13:19-0500 Heart rate 67 /min Dr. Sin Lujan Work Phone: [facility] 01-01-2023 13:19-0500 Respiratory rate 18 /min Dr. Sin Lujan Work Phone: [facility] 01-01-2023 13:19-0500 SaO2% (BldA) [Mass fraction] 92 % Dr. Sin Lujan Work Phone: [facility] 01-01-2023 13:19-0500 Systolic blood pressure 143 mm[Hg] Dr. Sin Lujan Work Phone: [facility] 09-05-2022 07:40-0400 Body height 167.[address] Sin Lujan Work Phone: [facility] Work Phone: 09-05-2022 07:40-0400 Body mass index (BMI) [Ratio] 17.2 kg/m2 Dr. Sin Lujan Work Phone: [facility] Work Phone: 09-05-2022 07:40-0400 Body temperature 98 [degF] Dr. Sin Lujan Work Phone: [facility] Work Phone: 09-05-2022 07:40-0400 Body weight 48.[address] Sin Lujan Work Phone: [facility] Work Phone: 09-05-2022 07:40-0400 Diastolic blood pressure 73 mm[Hg] Dr. Sin Lujan Work Phone: [facility] Work Phone: 09-05-2022 07:40-0400 Heart rate 66 /min Dr. Sin Lujan Work Phone: [facility] Work Phone: 09-05-2022 07:40-0400 Respiratory rate 16 /min Dr. Sin Lujan Work Phone: [facility] Work Phone: 09-05-2022 07:40-0400 SaO2% (BldA) [Mass fraction] 99 % Dr. Sin Lujan Work Phone: [facility] Work Phone: 09-05-2022 07:40-0400 Systolic blood pressure 160 mm[Hg] Dr. Sin Lujan Work Phone: [facility] Work Phone: 07-31-2022 12:46-0400 Body height 167.[address] Sin Lujan Work Phone: [facility] Work Phone: 07-31-2022 12:46-0400 Body weight 45.[address] Sin Lujan Work Phone: [facility] Work Phone: 07-31-2022 12:46-0400 Heart rate 79 /min Dr. Sin Lujan Work Phone: [facility] Work Phone: 07-31-2022 12:46-0400 SaO2% (BldA) [Mass fraction] 97 % Dr. Sin Lujan Work Phone: [facility] Work Phone: 07-04-2022 10:35-0400 Body mass index (BMI) [Ratio] 16.5 kg/m2 Dr. Sin Lujan Work Phone: [facility] Work Phone: 07-04-2022 10:35-0400 Body temperature 95.2 [degF] Dr. Sin Lujan Work Phone: [facility] Work Phone: 07-04-2022 10:35-0400 Body weight 46.[address] Sin Lujan Work Phone: [facility] Work Phone: 07-04-2022 10:35-0400 Diastolic blood pressure 76 mm[Hg] Dr. Sin Lujan Work Phone: [facility] Work Phone: 07-04-2022 10:35-0400 Heart rate 68 /min Dr. Sin Lujan Work Phone: [facility] Work Phone: 07-04-2022 10:35-0400 Respiratory rate 18 /min Dr. Sin Lujan Work Phone: [facility] Work Phone: 07-04-2022 10:35-0400 SaO2% (BldA) [Mass fraction] 96 % Dr. Sin Lujan Work Phone: [facility] Work Phone: 07-04-2022 10:35-0400 Systolic blood pressure 130 mm[Hg] Dr. Sin Lujan Work Phone: [facility] Work Phone: 05-28-2022 12:54-0400 Body height 167.64 cm No PCP None SS-Vagspusyfl-UB C [facility] [address] Work Phone: 05-28-2022 12:54-0400 Body mass index (BMI) [Ratio] 17.24 kg/m2 No PCP None HJ-Ilkegwtedt-VID [place] [address] Work Phone: 05-28-2022 12:54-0400 Body surface area Derived from formula 1.53 m2 No PCP None HS-Pesatmgtbk-GIT [place] [address] Work Phone: 05-28-2022 12:54-0400 Body temperature 97.2 [degF] No PCP None VJ-Hfqpujqipn-G MC [place] [address] Work Phone: 05-28-2022 12:54-0400 Body weight 48.44 kg No PCP None HL-Krgobuuwmd-MD C [place] [address] Work Phone: 05-28-2022 12:54-0400 Diastolic blood pressure 55 mm[Hg] No PCP None SD-Gwmzrxsilf-KLZ [place] [address] Work Phone: 05-28-2022 12:54-0400 Heart rate 68 /min No PCP None EP-Qvapcljizd-BG C [place] [address] Work Phone: 05-28-2022 12:54-0400 SaO2% (BldA) [Mass fraction] 98 % No PCP None TY-Dgfshgycau-WBW [place] [address] Work Phone: 05-28-2022 12:54-0400 Systolic blood pressure 111 mm[Hg] No PCP None RF-Fpvdhtageb-FKA [place] [address] Work Phone: 05-28-2022 12:54-0400 0 1 No PCP None EH-Rcjrddsfbu-BB C [employer] [address] Work Phone: Comment on above: [employer] 05-13-2022 08:14-0400 Body mass index (BMI) [Ratio] 16.9 kg/m2 Dr. Sin Lujan Work Phone: [facility] Work Phone: 05-13-2022 08:14-0400 Body temperature 97.4 [degF] Dr. Sin Lujan Work Phone: [facility] Work Phone: 05-13-2022 08:14-0400 Body weight 47.[address] Sin Lujan Work Phone: [facility] Work Phone: 05-13-2022 08:14-0400 Diastolic blood pressure 62 mm[Hg] Dr. Sin Lujan Work Phone: [facility] Work Phone: 05-13-2022 08:14-0400 Heart rate 67 /min Dr. Sin Lujan Work Phone: [facility] Work Phone: 05-13-2022 08:14-0400 Respiratory rate 16 /min Dr. Sin Lujan Work Phone: [facility] Work Phone: 05-13-2022 08:14-0400 SaO2% (BldA) [Mass fraction] 99 % Dr. Sin Lujan Work Phone: [facility] Work Phone: 05-13-2022 08:14-0400 Systolic blood pressure 126 mm[Hg] Dr. Sin Lujan Work Phone: [facility] Work Phone: 02-21-2022 13:07-0400 Body height 167.[address] Sin Lujan Work Phone: [facility] Work Phone: 02-21-2022 13:07-0400 Body mass index (BMI) [Ratio] 16.1 kg/m2 Dr. Sin Lujan Work Phone: [facility] Work Phone: 02-21-2022 13:07-0400 Body temperature 99.1 [degF] Dr. Sin Lujan Work Phone: [facility] Work Phone: 02-21-2022 13:07-0400 Body weight 45.[address] Sin Lujan Work Phone: [facility] Work Phone: 02-21-2022 13:07-0400 Diastolic blood pressure 75 mm[Hg] Dr. Sin Lujan Work Phone: [facility] Work Phone: 02-21-2022 13:07-0400 Heart rate 61 /min Dr. Sin Lujan Work Phone: [facility] Work Phone: 02-21-2022 13:07-0400 Respiratory rate 17 /min Dr. Sin Lujan Work Phone: [facility] Work Phone: 02-21-2022 13:07-0400 SaO2% (BldA) [Mass fraction] 95 % Dr. Sni Lujan Work Phone: [facility] Work Phone: 02-21-2022 13:07-0400 Systolic blood pressure 130 mm[Hg] Dr. Sin Lujan Work Phone: [facility] Work Phone: 02-21-2022 13:07-0400 Body height 167.[address] Sin Lujan Work Phone: [facility] Work Phone: 02-21-2022 13:07-0400 Body mass index (BMI) [Ratio] 16.1 kg/m2 Dr. Sin Lujan Work Phone: [facility] Work Phone: 02-21-2022 13:07-0400 Body temperature 99.1 [degF] Dr. Sin Lujan Work Phone: [facility] Work Phone: 02-21-2022 13:07-0400 Body weight 45.[address] Sin Lujan Work Phone: [facility] Work Phone: 02-21-2022 13:07-0400 Diastolic blood pressure 75 mm[Hg] Dr. Sin Lujan Work Phone: [facility] Work Phone: 02-21-2022 13:07-0400 Heart rate 61 /min Dr. Sin Lujan Work Phone: [facility] Work Phone: 02-21-2022 13:07-0400 Respiratory rate 17 /min Dr. Sin Lujan Work Phone: [facility] Work Phone: 02-21-2022 13:07-0400 SaO2% (BldA) [Mass fraction] 95 % Dr. Sin Lujan Work Phone: [facility] Work Phone: 02-21-2022 13:07-0400 Systolic blood pressure 130 mm[Hg] Dr. Sin Lujan Work Phone: [facility] Work Phone: 01-10-2022 08:05-0500 Body mass index (BMI) [Ratio] 17.3 kg/m2 Dr. Sin Lujan Work Phone: [facility] Work Phone: 01-10-2022 08:05-0500 Body temperature 97.3 [degF] Dr. Sin Lujan Work Phone: [facility] Work Phone: 01-10-2022 08:05-0500 Body weight 48.[address] Sin Lujan Work Phone: [facility] Work Phone: 01-10-2022 08:05-0500 Diastolic blood pressure 60 mm[Hg] Dr. Sin Lujan Work Phone: [facility] Work Phone: 01-10-2022 08:05-0500 Heart rate 77 /min Dr. Sin Lujan Work Phone: [facility] Work Phone: 01-10-2022 08:05-0500 Respiratory rate 18 /min Dr. Sin Lujan Work Phone: [facility] Work Phone: 01-10-2022 08:05-0500 SaO2% (BldA) [Mass fraction] 95 % Dr. Sin Lujan Work Phone: [facility] Work Phone: 01-10-2022 08:05-0500 Systolic blood pressure 140 mm[Hg] Dr. Sin Lujan Work Phone: [facility] Work Phone: 01-10-2022 07:05-0500 Body height 167.[address] Sin Lujan Work Phone: [facility] Work Phone: 01-10-2022 07:05-0500 Body mass index (BMI) [Ratio] 17.3 kg/m2 Dr. Sin Lujan Work Phone: [facility] Work Phone: 01-10-2022 07:05-0500 Body temperature 97.3 [degF] Dr. Sin Lujan Work Phone: [facility] Work Phone: 01-10-2022 07:05-0500 Body weight 48.[address] Sin Lujan Work Phone: [facility] Work Phone: 01-10-2022 07:05-0500 Diastolic blood pressure 60 mm[Hg] Dr. Sin Lujan Work Phone: [facility] Work Phone: 01-10-2022 07:05-0500 Heart rate 77 /min Dr. Sin Lujan Work Phone: [facility] Work Phone: 01-10-2022 07:05-0500 Respiratory rate 18 /min Dr. Sin Lujan Work Phone: [facility] Work Phone: 01-10-2022 07:05-0500 SaO2% (BldA) [Mass fraction] 95 % Dr. Sin Lujan Work Phone: [facility] Work Phone: 01-10-2022 07:05-0500 Systolic blood pressure 140 mm[Hg] Dr. Sin Lujan Work Phone: [facility] Work Phone: 03-05-2017 16:53-0400 BMI (Body Mass Index) 16.91 kg/m2 Ana Rosa Bustillo [facility] Work Phone: 03-05-2017 16:53-0400 BP Diastolic 68 mm[Hg] Ana Rosa Bustillo [facility] Work Phone: 03-05-2017 16:53-0400 BP Systolic 120 mm[Hg] Ana Rosa Bustillo [facility] Work Phone: 03-05-2017 16:53-0400 Height 167.64 cm Ana Rosa Bustillo THERMODYNAMICS PROFESSOR [facility] Work Phone: 03-05-2017 16:53-0400 Pulse (Heart Rate) 92 /min Ana Rosa Bustillo THERMODYNAMICS PROFESSOR [facility] Work Phone: 03-05-2017 16:53-0400 Pulse Oximetry 98 % Ana Rosa Bustillo LPN [facility] Work Phone: 03-05-2017 16:53-0400 Respiratory Rate 16 /min Ana Rosa Bustillo LPN [facility] Work Phone: 03-05-2017 16:53-0400 Weight 47.54 kg Ana Rosa Bustillo LPN [facility] Work Phone: 02-18-2017 14:22-0400 Body Temperature 97.9 [degF] Ana Rosa Bustillo LPN [facility] Work Phone: 02-18-2017 14:040 BSA (Body Surface Area) 1.53 m2 Ana Rosa Bustillo LPN [facility] Work Phone: 02-18-2017 14:040 Height 167.64 cm Ana Rosa Bustillo LPN [facility] Work Phone: 02-18-2017 14:040 Weight 48.53 kg Ana Rosa Bustillo THERMODYNAMICS PROFESSOR [facility] Work Phone: Encounters Encounter Date Encounter Type Care Provider Facility Start: 03-22-2025 End: 03-22-2025 Kayleigh BHARDWAJ -[facility] Work Phone: Start: 03-22-2025 End: 03-22-[address] Christy Huerta DO Work Phone: [facility] Work Phone: Start: 03-10-2025 ambulatory Bird Lam lity:[facility] Start: 01-27-2025 End: 01-27-2025 Brenda ARGUETA -[facility] Work Phone: Start: 01-27-2025 End: 01-27-2025 ambulatory Bird Lujan Facility:[facility] Start: 01-13-2025 Encounter for other preprocedural examination Favian Crestline [facility] Start: 01-11-2025 End: 01-11-2025 Kayleigh BHARDWAJ -[facility] Work Phone: Start: 01-11-2025 End: 01-11-2025 ambulatory Bird Lujan [facility] Start: 01-11-2025 End: 01-11-[address] Bird Lujan MD Work Phone: [facility] Work Phone: Start: 01-11-2025 End: 01-11-2025 Jeanna ARGUETA -Cat Luis, [facility] Work Phone: Start: 01-11-2025 End: 01-11-2025 ambulatory Jeannawing Davis STEELSCOPE OPERATOR Facility:[facility] Start: 01-06-2025 ambulatory Bird Lujan Faci lity:[facility] Start: 01-06-2025 Dr. He Cat MD -[facility] Work Phone: Start: 01-05-2025 Dr. He Cat MD -[facility] Work Phone: Start: 01-05-2025 Dr. Terrance Alva DO -[facility] -PM[facility] Start: 01-04-2025 Dr. He Cat MD -[facility] Work Phone: Start: 01-03-2025 End: 01-06-2025 [facility] Start: 01-03-2025 ambulatory Bird Jonesi lity:[facility] Start: 01-03-2025 End: 01-06-2025 Dr. He Cat MD -[facility] Work Phone: Start: 12-30-2024 End: 12-30-2024 Telephone encounter Kidney Txp Coordinators Work Phone: [facility] Comment on above: Referral - Kidney Tx p Start: 12-30-2024 Encounter for other preprocedural examination Kayleigh Payne [facility] Start: 12-29-2024 End: 12-29-2024 Telephone encounter Kidney Txp Coordinators Work Phone: [facility] Comment on above: Referral - Kidney Tx p Start: 12-28-2024 ambulatory Bird Jonesi lity:[facility] Start: 12-28-2024 Dr. Favian Sinclair MD -[facility] -[facility] Start: 12-28-2024 End: 12-28-2024 Dr. Favian Sinclair MD -[facility] Start: 12-28-2024 End: 12-28-2024 ambulatory Bird Lujan Facility:[facility] Start: 12-24-2024 End: 12-24-2024 Telephone encounter Kidney Txp Coordinators Work Phone: [facility] Comment on above: Referral - Kidney Tx p Start: 12-17-2024 ambulatory Reynaldomarco Lujan Faci lity:[facility] Start: 12-17-2024 End: 12-17-2024 Dr. Tee Aguirre MD -[facility] Start: 12-16-2024 End: 12-16-2024 Mynor Anthony STEELSCOPE OPERATOR-C -[facility] Work Phone: Start: 12-16-2024 End: 12-17-2024 [facility] Start: 12-02-2024 End: 12-02-2024 Dr. Favian Sinclair MD -[facility] Work Phone: Start: 12-02-2024 End: 12-02-2024 ambulatory Alabaster Tai Facility:[facility] Start: 11-20-2024 End: 11-20-2024 Dr. Justin Parisi DO -Emergency Department Work Phone: Start: 11-20-2024 End: 11-20-2024 [facility] Start: 11-04-2024 End: 11-04-2024 Emergency department patient visit [facility] Facility:[facility] Start: 11-04-2024 End: 11-04-2024 ED PHYSICIAN PROVIDER -Emergency Departm ent Work Phone: Start: 11-04-2024 End: 11-04-2024 ambulatory Alabaster Marlonikolay Facility:[facility] Start: 11-02-2024 ambulatory Christmarco Sellersnikolay Faci lity:[facility] Start: 11-02-2024 End: 11-02-2024 Dr. Favian Sinclair MD -[facility]-S Start: 11-02-2024 End: 11-02-2024 [facility] Start: 10-16-2024 End: 10-16-2024 Jeanna Davis NP-C -Cat Scan, [facility] Work Phone: Start: 10-16-2024 End: 10-16-2024 ambulatory Jeanna Davis NP Facility:[facility] Start: 10-07-2024 End: 10-07-2024 Brenda Medrano STEELSCOPE OPERATOR-C -[facility] Work Phone: Start: 10-07-2024 End: 10-07-2024 ambulatory Bird Lujan Facility:[facility] Start: 08-31-2024 End: 08-31-2024 ambulatory Tami Alfredo DIGITAL DESIGN ENGINEER - SUPERVISOR WHIPPED TOPPING Work Phone: [facility] Start: 08-31-2024 End: 08-31-2024 Patient encounter procedure Tami lAfredo DIGITAL DESIGN ENGINEER - SUPERVISOR WHIPPED TOPPING Work Phone: [facility] Comment on above: Chronic respiratory failure with hypoxia and hypercapnia (HCC) [J96.11, J96.12] (Primary Dx); Centrilobular emphysema (HCC) [J43.2]; Other dysphagia [R13.19]; Hx of bacterial pneumonia [Z87.01] Start: 08-27-2024 End: 08-27-2024 ambulatory Tami Alfredo DIGITAL DESIGN ENGINEER - SUPERVISOR WHIPPED TOPPING Work Phone: [facility] Start: 08-27-2024 End: 08-27-2024 Patient encounter procedure Tami GuerraUriel Alfredo DIGITAL DESIGN ENGINEER - SUPERVISOR WHIPPED TOPPING Work Phone: [facility] Comment on above: Chronic respiratory failure with hypoxia and hypercapnia (HCC) [J96.11, J96.12] (Primary Dx); Centrilobular emphysema (HCC) [J43.2]; History of recent pneumonia [Z87.01]; Other dysphagia [R13.19] Start: 08-25-2024 End: 08-25-2024 ambulatory Tami Alfredo DIGITAL DESIGN ENGINEER - SUPERVISOR WHIPPED TOPPING Work Phone: [facility] Start: 08-25-2024 End: 08-25-2024 Patient encounter procedure Tami Alfredo DIGITAL DESIGN ENGINEER - SUPERVISOR WHIPPED TOPPING Work Phone: [facility] Comment on above: Chronic respiratory failure with hypoxia and hypercapnia (HCC) [J96.11, J96.12] (Primary Dx); Centrilobular emphysema (HCC) [J43.2]; Bilateral pleural effusion [J90]; Hx of bacterial pneumonia [Z87.01]; Cigarette nicotine dependence without complication [F17.210] Start: 08-13-2024 End: 08-13-2024 ambulatory ELIZABETH TYLER [facility] Start: 08-12-2024 End: 08-24-2024 Evaluation and management of inpatient Lucina Galvan DO Work Phone: [facility]W Start: 08-11-2024 End: 08-11-2024 ambulatory ELIESER SOLIS [facility] Start: 08-11-2024 End: 11-10-2024 Subsequent hospital visit by physician Elieser Solis MD Work Phone: [facility] Comment on above: SDH (subdural hemato ma) (HCC) SDH (subdural hemato ma) (HCC) (Primary Dx) Start: 08-10-2024 End: 08-10-2024 ambulatory MADELINE KENDALL [facility] Start: 07-28-2024 End: 07-28-2024 ambulatory TORITO [facility] Start: 07-27-2024 End: 07-29-2024 ambulatory TORITO [facility] Start: 07-26-2024 End: 08-10-2024 Evaluation and management of inpatient Colin Peoples MD Work Phone: [facility] PCU 3W Start: 07-24-2024 End: 07-24-2024 ambulatory Saroj Lemos [facility] Start: 07-23-2024 ambulatory Baldo Jones ility:[facility] Start: 07-23-2024 End: 07-26-2024 Evaluation and management of inpatient Favian Nicholas Facility:[facility] Start: 07-13-2024 ambulatory Christy Huerta Facility: [facility] Start: 07-01-2024 End: 07-01-2024 ambulatory Bird Lujan Facility:[facility] Start: 05-20-2024 End: 05-20-2024 ambulatory Brenda Medrano Facility:[facility] Start: 05-05-2024 End: 05-05-2024 ambulatory Bird Lujan [facility] Start: 05-05-2024 End: 05-05-2024 ambulatory Jeanna Davis NP Facility:[facility] Start: 04-21-2024 End: 04-21-2024 ambulatory Christy Huerta Facility:[facility] Start: 04-14-2024 End: 04-15-2024 Emergency department patient visit Kalia Baeza Facility:[facility] Start: 04-14-2024 End: 04-14-2024 ambulatory Bird Lujan [facility] Start: 04-06-2024 ambulatory Bird Lujan Faci lity:[facility] Start: 03-02-2024 End: 03-02-[address] Bird Lujan Work Phone: [facility] Work Phone: Start: 03-02-2024 End: 03-02-[address] Bird Lujan Work Phone: [facility] Work Phone: Start: 02-05-2024 End: 02-05-[address] Sin Lujan Work Phone: [facility] Work Phone: Start: 02-02-2024 End: 02-02-[address] Sin Lujan Work Phone: [facility] Work Phone: Start: 02-02-2024 End: 02-02-[address] Sin Lujan Work Phone: [facility] Work Phone: Start: 01-15-2024 End: 01-15-[address] Sin Lujan Work Phone: [facility] Work Phone: Start: 01-15-2024 End: 01-15-[address] Sin Lujan Work Phone: [facility]-Laboratory, Phy Office 3rd Flr Start: 12-03-2023 End: 12-03-[address] Sin Lujan Work Phone: [facility] Work Phone: Start: 11-18-2023 End: 11-18-[address] Sin Lujan Work Phone: [facility] Work Phone: Start: 11-18-2023 End: 11-18-[address] Sin Lujan Work Phone: [facility] Work Phone: Start: 10-29-2023 End: 10-29-[address] Sin Lujan Work Phone: [facility] Work Phone: Start: 10-29-2023 End: 10-29-[address] Sin Lujan Work Phone: [facility]-Laboratory, Specimen Work Phone: Start: 10-29-2023 End: 10-29-[address] Sin Lujan Work Phone: [facility] Work Phone: Start: 10-20-2023 End: 10-20-[address] Sin Lujan Work Phone: [facility] Work Phone: Start: 10-20-2023 End: 10-20-[address] Sin Lujan Work Phone: [facility], [facility] Work Phone: Start: 10-13-2023 End: 10-13-[address] Sin Lujan Work Phone: [facility] Work Phone: Start: 10-13-2023 End: 10-13-[address] [facility] Start: 10-09-2023 End: 10-09-[address] Sin Lujan Work Phone: [facility] Work Phone: Start: 10-09-2023 End: 10-09-2023 Patient encounter procedure STEELSCOPE OPERATOR-C Jeanna Davis STEELSCOPE OPERATOR Work Phone: [facility]-Laboratory, y Office 3rd Flr Start: 10-06-2023 End: 10-06-2023 ambulatory STEELSCOPE OPERATOR-C Jeanna Davis STEELSCOPE OPERATOR Work Phone: [facility] Work Phone: Start: 10-06-2023 End: 10-06-2023 Patient encounter procedure STEELSCOPE OPERATOR-C Jeanna Davis STEELSCOPE OPERATOR Work Phone: [facility]-Laboratory, y Office 3rd Flr Start: 08-06-2023 End: 08-06-2023 Patient encounter procedure STEELSCOPE OPERATOR-C Jeanna Davis STEELSCOPE OPERATOR Work Phone: [facility], [facility] Work Phone: Start: 07-14-2023 End: 07-14-2023 Patient encounter procedure STEELSCOPE OPERATOR-C Jeanna Davis STEELSCOPE OPERATOR Work Phone: [facility] Work Phone: Start: 06-25-2023 End: 06-25-2023 Patient encounter procedure STEELSCOPE OPERATOR-C Jeanna Davis STEELSCOPE OPERATOR Work Phone: [facility] Work Phone: Start: 06-19-2023 End: 06-19-[address] Sin Lujan Work Phone: [facility] Work Phone: Start: 06-19-2023 End: 06-19-[address] Sin Lujan Work Phone: [facility], [facility] 3rd [facility] Start: 06-12-2023 Non-patient / Non-visit Dr. Aashish Lujan Work Phone: [facility] Start: 06-12-2023 End: 06-12-[address] Sin Lujan Work Phone: [facility]-Pulmonary Services/Neurology Work Phone: Start: 06-02-2023 End: 06-02-[address] Sin Lujan Work Phone: [facility] Work Phone: Start: 06-02-2023 End: 06-02-[address] Sin Lujan Work Phone: [facility] Work Phone: Start: 05-20-2023 Non-patient / Non-visit Dr. Aashish Lujan Work Phone: [facility] Start: 05-19-2023 End: 05-19-[address] Sin Lujan Work Phone: [facility] Work Phone: Start: 05-19-2023 End: 05-19-[address] Sin Lujan Work Phone: [facility]-Pulmonary Services/Neurology Work Phone: Start: 04-09-2023 End: 04-09-[address] Sin Lujan Work Phone: [facility] Work Phone: Start: 03-17-2023 End: 03-17-[address] Sin Lujan Work Phone: [facility]-Laboratory, Phy Office 3rd Flr Start: 03-06-2023 Non-patient / Non-visit Dr. Aashish Lujan Work Phone: [facility] Work Phone: Start: 02-28-2023 Non-patient / Non-visit Dr. Aashish Lujan Work Phone: [facility] Start: 02-27-2023 Non-patient / Non-visit Dr. Aashish Lujan Work Phone: [facility] Start: 02-27-2023 End: 02-27-[address] Sin Lujan Work Phone: [facility] Work Phone: Start: 02-27-2023 End: 02-27-[address] Sin Lujan Work Phone: [facility]-Cardiovascula [facility] Start: 02-26-2023 End: 02-26-[address] Sin Lujan Work Phone: [facility] Work Phone: Start: 02-26-2023 End: 02-26-[address] Sin Lujan Work Phone: [facility]-Laboratory Start: 02-17-2023 End: 02-17-[address] Sin Lujan Work Phone: [facility] Start: 01-01-2023 End: 01-01-[address] Sin Lujan Work Phone: [facility] Start: 10-11-2022 End: 10-11-[address] Sin Lujan Work Phone: [facility] Work Phone: Start: 10-11-2022 End: 10-11-[address] Sin Lujan Work Phone: [facility] Start: 09-05-2022 End: 09-05-[address] Sin Lujan Work Phone: [facility] Start: 08-05-2022 Non-patient / Non-visit Dr. Aashish Lujan Work Phone: [facility] Start: 07-31-2022 End: 07-31-[address] Sin Lujan Work Phone: [facility]-Pulmonary Services/Neurology Start: 07-29-2022 Non-patient / Non-visit Dr. Aashish Lujan Work Phone: [facility] Start: 07-29-2022 End: 07-29-[address] Sin Lujan Work Phone: [facility] Work Phone: Start: 07-29-2022 End: 07-29-[address] Sin Lujan Work Phone: [facility]-Pulmonary Services/Neurology Start: 07-04-2022 End: 07-04-[address] Sin Lujan Work Phone: [facility] Start: 06-09-2022 Chart Update No PCP None [facility] Work Phone: Start: 05-29-2022 Chart Update No PCP None [facility] Work Phone: Start: 05-29-2022 End: 05-29-[address] Sin Lujan Work Phone: [facility] Start: 05-28-2022 Patient encounter procedure No PCP None [facility] [place] [address] Work Phone: Start: 05-13-2022 End: 05-13-[address] [facility] Start: 05-02-2022 End: 05-02-[address] Sin Lujan Work Phone: [facility]-Laboratory Start: 02-21-2022 End: 02-21-[address] [facility] Start: 02-18-2022 End: 02-18-[address] Sin Lujan Work Phone: [facility] Start: 02-08-2022 End: 02-08-[address] [facility] Start: 01-10-2022 End: 01-10-[address] Sin Lujan Work Phone: [facility] Start: 12-24-2021 End: 12-24-[address] [facility] Start: 12-19-2021 End: 12-19-[address] Sin Lujan Work Phone: [facility] Patient encounter status No PCP None [id number] [place] [address] Work Phone: Procedures Date Procedure Procedure Detail Performing Clinician Start: 01-11-2025 CT of chest without contrast Dr. Bird Lujan MD Work Phone: Start: 01-06-2025 Blood count smear rscp w/mnl difrntl wbc count Dr. Christy Huerta DO Work Phone: Start: 01-06-[address] Christy Huerta DO Work Phone: Start: 01-06-2025 Mean corpuscular hem oglobin concentration determination Dr. Christy Huerta DO Work Phone: Start: 01-06-2025 Nucleated red blood cell count procedure Dr. Christy Huerta DO Work Phone: Start: 01-06-2025 Platelet mean volume determination Dr. Christy Huerta DO Work Phone: Start: 01-05-[address] Bird Lujan MD Work Phone: Start: 01-05-2025 Carbon dioxide measu rement, partial pressure Dr. Christy Huerta DO Work Phone: Start: 01-05-2025 Gases blood o2 satur ation only direct lesly Dr. Christy Huerta DO Work Phone: Start: 01-05-2025 Measurement of parti al pressure of oxygen in blood Dr. Christy Huerta DO Work Phone: Start: 01-05-[address] Christy Huerta DO Work Phone: Start: 01-05-2025 Serum inorganic phos phate measurement Dr. Christy Huerta DO Work Phone: Start: 01-04-2025 Bacterial nucleic ac id assay Dr. Bird Lujan MD Work Phone: Start: 01-04-2025 Dr. Reynaldo Lujan MD Work Phone: Start: 01-03-2025 X-ray of chest, PA a nd lateral views Dr. Bird Lujan MD Work Phone: Start: 12-25-2024 Anion gap measurement Hasmukh Huerta DO Work Phone: Start: 12-25-2024 BUN/Creatinine ratio Dr Uriel Huerta DO Work Phone: Start: 12-25-2024 Mean corpuscular hem oglobin concentration determination Dr. Christy Huerta DO Work Phone: Start: 12-25-2024 Measurement of renal function Dr. Christy Huerta DO Work Phone: Start: 12-25-2024 Platelet mean volume determination Dr. Christy Huerta DO Work Phone: Start: 11-20-2024 Plain chest X-ray Dr. Marquis Lujan MD Work Phone: Start: 10-16-2024 CT of chest without contrast Dr. Bird Lujan MD Work Phone: Start: 08-24-2024 Glucose quantitative blood xcpt reagent strip Savita Denise MD Work Phone: Start: 08-24-2024 Glucose quantitative blood xcpt reagent strip Savita Denise MD Work Phone: Start: 08-24-2024 Glucose quantitative blood xcpt reagent strip Savita Denise MD Work Phone: Start: 08-24-2024 Basic metabolic pane l calcium total Janell Booker MD Work Phone: Start: 08-23-2024 Glucose quantitative blood xcpt reagent strip Savita Denise MD Work Phone: Start: 08-23-2024 Glucose quantitative blood xcpt reagent strip Savita Denise MD Work Phone: Start: 08-23-2024 Us retroperitoneal r eal time w/image complete Eladio Lebron MD Work Phone: Start: 08-23-2024 Glucose quantitative blood xcpt reagent strip Savita Denise MD Work Phone: Start: 08-23-2024 Hepatitis b surf ant ibody hbsab Joni Monson MD Work Phone: Start: 08-23-2024 Iaad ia hepatitis b surface antigen Joni Monson MD Work Phone: Start: 08-23-2024 Glucose quantitative blood xcpt reagent strip Savita Denise MD Work Phone: Start: 08-23-2024 Glucose quantitative blood xcpt reagent strip Kemar Adames DO Work Phone: Start: 08-23-2024 Basic metabolic pane l calcium total Janell Booker MD Work Phone: Start: 08-22-2024 Glucose quantitative blood xcpt reagent strip Kemar Adames DO Work Phone: Start: 08-22-2024 Glucose quantitative blood xcpt reagent strip Kemar Adames DO Work Phone: Start: 08-22-2024 Glucose quantitative blood xcpt reagent strip Kemar Adames DO Work Phone: Start: 08-22-2024 Glucose quantitative blood xcpt reagent strip Kemar Adames DO Work Phone: Start: 08-22-2024 Basic metabolic pane l calcium total Janell Booker MD Work Phone: Start: 08-21-2024 Culture bacterial quanttative colony count urine Lidia Renee MD Work Phone: Start: 08-21-2024 Urinalysis complete panel - Urine Lidia Renee MD Work Phone: Start: 08-21-2024 Glucose quantitative blood xcpt reagent strip Savita Denise MD Work Phone: Start: 08-21-2024 Glucose quantitative blood xcpt reagent strip Savita Denise MD Work Phone: Start: 08-21-2024 Glucose quantitative blood xcpt reagent strip Savita Denise MD Work Phone: Start: 08-21-2024 Blood gases any comb ination ph pco2 po2 co2 hco3 Janell Booker MD Work Phone: Start: 08-21-2024 Glucose quantitative blood xcpt reagent strip Savita Denise MD Work Phone: Start: 08-21-2024 Glucose quantitative blood xcpt reagent strip Savita Denise MD Work Phone: Start: 08-21-2024 End: 08-21-2024 Glucose quantitative blood xcpt reagent strip Savita Denise MD Work Phone: Start: 08-21-2024 POCT GLUCOSE METER UNSOLICITED RESULTS Savita Denise MD Work Phone: Start: 08-21-2024 Blood gases any comb ination ph pco2 po2 co2 hco3 Janell Booker MD Work Phone: Start: 08-21-2024 Basic metabolic pane l calcium total Janell Booker MD Work Phone: Start: 08-20-2024 Blood gases any comb ination ph pco2 po2 co2 hco3 Lidia Renee MD Work Phone: Start: 08-20-2024 Glucose quantitative blood xcpt reagent strip Savita Denise MD Work Phone: Start: 08-20-2024 Blood gases any comb ination ph pco2 po2 co2 hco3 Glenda Ma MD Work Phone: Start: 08-20-2024 Glucose quantitative blood xcpt reagent strip Savita Denise MD Work Phone: Start: 08-20-2024 Blood gases any comb ination ph pco2 po2 co2 hco3 Sandy Bowman DO Work Phone: Start: 08-20-2024 Blood gases any comb ination ph pco2 po2 co2 hco3 Sandy Bowman DO Work Phone: Start: 08-20-2024 Glucose quantitative blood xcpt reagent strip Kemar Adames DO Work Phone: Start: 08-20-2024 Basic metabolic pane l calcium total Janell Booker MD Work Phone: Start: 08-19-2024 Glucose quantitative blood xcpt reagent strip Kemar Adames DO Work Phone: Start: 08-19-2024 Glucose quantitative blood xcpt reagent strip Kemar Adames DO Work Phone: Start: 08-19-2024 Glucose quantitative blood xcpt reagent strip Kemar Adames DO Work Phone: Start: 08-19-2024 Glucose quantitative blood xcpt reagent strip Kemar Adames DO Work Phone: Start: 08-19-2024 POCT GLUCOSE METER UNSOLICITED RESULTS Kemar Adames DO Work Phone: Start: 08-19-2024 POCT GLUCOSE METER UNSOLICITED RESULTS Kemar Adames DO Work Phone: Start: 08-19-2024 POCT GLUCOSE METER UNSOLICITED RESULTS Kemar Adames DO Work Phone: Start: 08-19-2024 Glucose quantitative blood xcpt reagent strip Kemar Adames DO Work Phone: Start: 08-19-2024 POCT GLUCOSE METER UNSOLICITED RESULTS Kemar Adames DO Work Phone: Start: 08-19-2024 Basic metabolic pane l calcium total Janell Booker MD Work Phone: Start: 08-18-2024 Glucose quantitative blood xcpt reagent strip Kemar Adames DO Work Phone: Start: 08-18-2024 Glucose quantitative blood xcpt reagent strip Kemar Adames DO Work Phone: Start: 08-18-2024 Glucose quantitative blood xcpt reagent strip Kemar Adames DO Work Phone: Start: 08-18-2024 Glucose quantitative blood xcpt reagent strip Kemar Adames DO Work Phone: Start: 08-18-2024 Basic metabolic pane l calcium total Janell Booker MD Work Phone: Start: 08-17-2024 Glucose quantitative blood xcpt reagent strip Kemar Adames DO Work Phone: Start: 08-17-2024 Glucose quantitative blood xcpt reagent strip Kemar Adames DO Work Phone: Start: 08-17-2024 Glucose quantitative blood xcpt reagent strip Kemar Adames DO Work Phone: Start: 08-17-2024 Glucose quantitative blood xcpt reagent strip Kemar Adames DO Work Phone: Start: 08-17-2024 Basic metabolic pane l calcium total Janell Booker MD Work Phone: Start: 08-16-2024 Glucose quantitative blood xcpt reagent strip Kemar Adames DO Work Phone: Start: 08-16-2024 Glucose quantitative blood xcpt reagent strip Kemar Adames DO Work Phone: Start: 08-16-2024 End: 08-16-2024 Calcium ionized Janell Booker MD Work Phone: Start: 08-16-2024 Glucose quantitative blood xcpt reagent strip Kemar Adames DO Work Phone: Start: 08-16-2024 Basic metabolic pane l calcium total Janell Booker MD Work Phone: Start: 08-15-2024 Glucose quantitative blood xcpt reagent strip Elizabeth Tyler MD Work Phone: Start: 08-15-2024 Glucose quantitative blood xcpt reagent strip Elizabeth Tyler MD Work Phone: Start: 08-15-2024 Glucose quantitative blood xcpt reagent strip Elizabeth Tyler MD Work Phone: Start: 08-15-2024 End: 08-15-2024 Basic metabolic panel calcium total Janell Booker MD Work Phone: Start: 08-14-2024 Glucose quantitative blood xcpt reagent strip Elizabeth Tyler MD Work Phone: Start: 08-14-2024 Glucose quantitative blood xcpt reagent strip Elizabeth Tyler MD Work Phone: Start: 08-14-2024 End: 08-14-2024 Bacteria identified in Blood by Culture Janell Booker MD Work Phone: Start: 08-14-2024 Glucose quantitative blood xcpt reagent strip Elizabeth Tyler MD Work Phone: Start: 08-14-2024 Glucose quantitative blood xcpt reagent strip Elizabeth Tyler MD Work Phone: Start: 08-14-2024 Basic metabolic pane l calcium total Janell Booker MD Work Phone: Start: 08-13-2024 Glucose quantitative blood xcpt reagent strip Elizabeth Tyler MD Work Phone: Start: 08-13-2024 Glucose quantitative blood xcpt reagent strip Elizabeth Tyler MD Work Phone: Start: 08-13-2024 Glucose quantitative blood xcpt reagent strip Elizabeth Tyler MD Work Phone: Start: 08-13-2024 Assay of troponin quantitative Ana Rosa Edie Carlin DO Work Phone: Start: 08-13-2024 Glucose quantitative blood xcpt reagent strip Elizabeth Tyler MD Work Phone: Start: 08-13-2024 Culture bacterial quanttative colony count urine Janell Booker MD Work Phone: Start: 08-13-2024 Urinalysis complete panel - Urine Janell Bokoer MD Work Phone: Start: 08-13-2024 Antibody identificat ion platelet antibodies Janell Booker MD Work Phone: Start: 08-13-2024 End: 08-13-2024 Assay of troponin quantitative Ana Rosa Edie Carlin DO Work Phone: Start: 08-13-2024 End: 08-13-2024 Assay of troponin quantitative Ana Rosa Edie Carlin DO Work Phone: Start: 08-13-2024 Respiratory pathogen s DNA and RNA panel - Nasopharynx by MARISA with non-probe detection Elizabeth Tyler MD Work Phone: Start: 08-13-2024 Blood gases any comb ination ph pco2 po2 co2 hco3 Ana Rosa Edie Carlin DO Work Phone: Start: 08-13-2024 Compatibility each u nit electronic Ana Rosa Edie Carlin DO Work Phone: Start: 08-13-2024 End: 08-13-2024 TRANSFUSE RED BLOOD CELLS Ana Rosa Edie Carlin DO Work Phone: Start: 08-13-2024 End: 08-13-2024 Assay of haptoglobin quantitative Ana Rosa Edie Carlin DO Work Phone: Start: 08-13-2024 End: 08-13-2024 Basic metabolic panel calcium total Janell Booker MD Work Phone: Start: 08-13-2024 Manual Differential panel - Blood Jimmy Costa DO Work Phone: Start: 08-13-2024 EEG CONTINUOUS MONITORING May Wang DO Work Phone: Start: 08-13-2024 Blood count hematocrit April Soto MD Start: 08-12-2024 Basic metabolic pane l calcium total Emiliano Dorsey MD Work Phone: Start: 08-12-2024 Blood gases any comb ination ph pco2 po2 co2 hco3 Emiliano Dorsey MD Work Phone: Start: 08-12-2024 Cere[address] perfusion a nalys ct w/blood flow&volume May Wang DO Work Phone: Start: 08-12-2024 Ct angiography head w/contrast/noncontrast May Wang DO Work Phone: Start: 08-12-2024 Compatibility each u nit electronic April Soto MD Start: 08-12-2024 End: 08-12-2024 TRANSFUSE RED BLOOD CELLS April Soto MD Start: 08-12-2024 Antibody screen REYNALDO PEOPLES Comment on above: Performed By: #### L [id number] ####Obiee Obia Solution Architect: MARY SOTELO ([id number])[facility] ([facility])[address] [place] [address] Start: 08-12-2024 Blood typing serologic abo April Soto MD Start: 08-12-2024 End: 08-12-2024 Cyanocobalamin vitamin b-12 May Wang DO Work Phone: Start: 08-12-2024 Assay of troponin quantitative Sapphire Bianchi PA-C Work Phone: Start: 08-12-2024 Blood gases any comb ination ph pco2 po2 co2 hco3 Ana Rosa Irizarry Carlin DO Work Phone: Start: 08-12-2024 Bacteria identified in Blood by Culture Sapphire Bianchi PA-C Work Phone: Start: 08-12-2024 Blood gases, venous measurement Sapphire Bianchi STACY Work Phone: Start: 08-12-2024 Comprehensive metabo lic panel Sapphire Bianchi YANDELMarquis Work Phone: Start: 08-12-2024 HC CUL TYP ID BLD PT HGN 6+ TRGT Sapphire Bianchi BENTON-Marquis Work Phone: Start: 08-12-2024 Radiologic exam ches t single view Sapphire Bianchi YANDELMarquis Work Phone: Start: 08-12-2024 Ecg routine ecg w/le ast 12 lds i&r only Sapphire Bianchi YANDELLifestreams Work Phone: Start: 08-11-2024 Ct head/brain w/o co ntrast material Elieser Solis MD Work Phone: Start: 08-10-2024 Glucose quantitative blood xcpt reagent strip Fly Cherokee DO Work Phone: Start: 08-10-2024 Glucose quantitative blood xcpt reagent strip Fly Cherokee DO Work Phone: Start: 08-10-2024 End: 08-10-2024 Glucose quantitative blood xcpt reagent strip Fly Cherokee DO Work Phone: Start: 08-10-2024 End: 08-10-2024 Glucose quantitative blood xcpt reagent strip Fly Holli DO Work Phone: Start: 08-10-2024 Basic metabolic pane l calcium total May Sherice Alma Deliashamirmarium DO Work Phone: Start: 08-10-2024 Complement antigen e ach component Saroj Gaffney MD Work Phone: Start: 08-09-2024 Glucose quantitative blood xcpt reagent strip Fly Cherokee DO Work Phone: Start: 08-09-2024 End: 08-09-2024 Creatinine other source Saroj Gaffney MD Work Phone: Start: 08-09-2024 Urnls dip stick/tabl et reagent auto microscopy Saroj Gaffney MD Work Phone: Start: 08-09-2024 Glucose quantitative blood xcpt reagent strip Fly Holli DO Work Phone: Start: 08-09-2024 Glucose quantitative blood xcpt reagent strip Fly Cherokee DO Work Phone: Start: 08-09-2024 Glucose quantitative blood xcpt reagent strip Fly Cherokee DO Work Phone: Start: 08-09-2024 End: 08-09-2024 Glucose quantitative blood xcpt reagent strip Ino Conte MD Work Phone: Start: 08-09-2024 POCT GLUCOSE METER UNSOLICITED RESULTS Ino Conte MD Work Phone: Start: 08-09-2024 End: 08-09-2024 Glucose quantitative blood xcpt reagent strip Ino Conte MD Work Phone: Start: 08-09-2024 POCT GLUCOSE METER UNSOLICITED RESULTS Ino Conte MD Work Phone: Start: 08-09-2024 Basic metabolic pane l calcium total May Sherice Wang DO Work Phone: Start: 08-08-2024 Glucose quantitative blood xcpt reagent strip Ino Conte MD Work Phone: Start: 08-08-2024 Glucose quantitative blood xcpt reagent strip Ino Conte MD Work Phone: Start: 08-08-2024 Radiologic exam ches t single view Khai T Beckworth DO Work Phone: Start: 08-08-2024 Glucose quantitative blood xcpt reagent strip Ino Conte MD Work Phone: Start: 08-08-2024 Glucose quantitative blood xcpt reagent strip Ino Conte MD Work Phone: Start: 08-08-2024 Renal function panel Ja conneruelyn Sherice Wang DO Work Phone: Start: 08-07-2024 Glucose quantitative blood xcpt reagent strip Ino Conte MD Work Phone: Start: 08-07-2024 Glucose quantitative blood xcpt reagent strip Ino Conte MD Work Phone: Start: 08-07-2024 Respiratory pathogen s DNA and RNA panel - Nasopharynx by MARISA with non-probe detection William Jarrett DO Work Phone: Start: 08-07-2024 Glucose quantitative blood xcpt reagent strip Ino Conte MD Work Phone: Start: 08-07-2024 Glucose quantitative blood xcpt reagent strip Ino Conte MD Work Phone: Start: 08-07-2024 Basic metabolic pane l calcium total May Sherice Felipe DO Work Phone: Start: 08-06-2024 Glucose quantitative blood xcpt reagent strip Ino Conte MD Work Phone: Start: 08-06-2024 Glucose quantitative blood xcpt reagent strip Saroj Sadler MD Work Phone: Start: 08-06-2024 Glucose quantitative blood xcpt reagent strip Saroj Sadler MD Work Phone: Start: 08-06-2024 Blood count hematocrit Jomar Snider MD Work Phone: Start: 08-06-2024 Glucose quantitative blood xcpt reagent strip Saroj Sadler MD Work Phone: Start: 08-06-2024 RBC leukocytes reduced Jomar Snider MD Work Phone: Start: 08-06-2024 End: 08-06-2024 TRANSFUSE RED BLOOD CELLS Jomar Snider MD Work Phone: Start: 08-06-2024 Antibody screen REYNALDO PEOPLES Comment on above: Performed By: #### L [id number] ####Obiee Obia Solution Architect: MARY SOTELO ([id number])[facility] ([facility])[address] [place] [address] Start: 08-06-2024 Blood typing serologic abo Jomar Snider MD Work Phone: Start: 08-06-2024 Basic metabolic pane l calcium total May Sherice Reshamirnyder DO Work Phone: Start: 08-05-2024 Glucose quantitative blood xcpt reagent strip Saroj Sadler MD Work Phone: Start: 08-05-2024 Glucose quantitative blood xcpt reagent strip Saroj Sadler MD Work Phone: Start: 08-05-2024 Glucose quantitative blood xcpt reagent strip Saroj Sadler MD Work Phone: Start: 08-05-2024 Glucose quantitative blood xcpt reagent strip Saroj Sadler MD Work Phone: Start: 08-05-2024 Radiologic exam ches t single view Ana Rosa Edie Carlin DO Work Phone: Start: 08-05-2024 Basic metabolic pane l calcium total May Sherice Reamsnyder DO Work Phone: Start: 08-04-2024 Glucose quantitative blood xcpt reagent strip Saroj Sadler MD Work Phone: Start: 08-04-2024 Glucose quantitative blood xcpt reagent strip Saroj Sadler MD Work Phone: Start: 08-04-2024 Radiologic exam swal low function contrast study Saroj Sadler MD Work Phone: Start: 08-04-2024 Glucose quantitative blood xcpt reagent strip Saroj Sadler MD Work Phone: Start: 08-04-2024 Glucose quantitative blood xcpt reagent strip Fly Cherokee DO Work Phone: Start: 08-04-2024 Basic metabolic pane l calcium total May Sherice Reamsnyder DO Work Phone: Start: 08-03-2024 Glucose quantitative blood xcpt reagent strip Fly Cherokee DO Work Phone: Start: 08-03-2024 Glucose quantitative blood xcpt reagent strip Fly Cherokee DO Work Phone: Start: 08-03-2024 Glucose quantitative blood xcpt reagent strip Fly Holli DO Work Phone: Start: 08-03-2024 Glucose quantitative blood xcpt reagent strip Saroj Sadler MD Work Phone: Start: 08-03-2024 End: 08-03-2024 Basic metabolic panel calcium total May Wang DO Work Phone: Start: 08-02-2024 Glucose quantitative blood xcpt reagent strip Saroj Sadler MD Work Phone: Start: 08-02-2024 Glucose quantitative blood xcpt reagent strip Saroj Sadler MD Work Phone: Start: 08-02-2024 Glucose quantitative blood xcpt reagent strip Kena Kumar DO Work Phone: Start: 08-02-2024 Basic metabolic pane l calcium total May Wang DO Work Phone: Start: 08-01-2024 Glucose quantitative blood xcpt reagent strip Kena Kumar DO Work Phone: Start: 08-01-2024 Glucose quantitative blood xcpt reagent strip Kena Heath DO Work Phone: Start: 08-01-2024 End: 08-01-2024 Renal function panel Joycelyn Noe O Work Phone: Start: 08-01-2024 Renal function panel Layton Diane DO Work Phone: Start: 08-01-2024 Ecg routine ecg w/le ast 12 lds trcg only w/o i&r Kena Kumar DO Work Phone: Start: 08-01-2024 End: 08-01-2024 Renal function panel Joycelyn Noe O Work Phone: Start: 07-31-2024 Glucose quantitative blood xcpt reagent strip Kena Masseyttmann DO Work Phone: Start: 07-31-2024 End: 07-31-2024 Renal function panel Joycelyn Noe O Work Phone: Start: 07-31-2024 Compatibility each u nit electronic Joycelyn Diane DO Work Phone: Start: 07-31-2024 End: 07-31-2024 TRANSFUSE RED BLOOD CELLS Joycelyn rangel DO Work Phone: Start: 07-31-2024 CONTINUOUS VENOVENOU S HEMODIAFILTRATION Joni Monson MD Work Phone: Start: 07-31-2024 Antibody screen REYNALDO PEOPLES Comment on above: Performed By: #### L [id number] ####Obiee Obia Solution Architect: MARY SOTELO ([id number])[facility] ([address] Start: 07-31-2024 ABO and Rh group [Ty pe] in Blood by Confirmatory method Joycelyn Diane DO Work Phone: Start: 07-31-2024 Blood typing serologic abo Joycelyn Diane DO Work Phone: Start: 07-31-2024 End: 07-31-2024 Renal function panel Joycelyn Noe O Work Phone: Start: 07-31-2024 CHEST PHYSIOTHERAPY Jaden Diane DO Work Phone: Start: 07-31-2024 Blood gases any comb ination ph pco2 po2 co2 hco3 Kena Kumar DO Work Phone: Start: 07-31-2024 End: 07-31-2024 Renal function panel Joycelyn Noe O Work Phone: Start: 07-31-2024 End: 07-31-2024 Renal function panel Joycelyn Noe O Work Phone: Start: 07-30-2024 Renal function panel Layton Diane DO Work Phone: Start: 07-30-2024 CHEST PHYSIOTHERAPY Jaden Diane DO Work Phone: Start: 07-30-2024 EXTUBATION Joycelyn leigh DO Work Phone: Start: 07-30-2024 Renal function panel Traylor quinchaya Guerra Diane DO Work Phone: Start: 07-30-2024 Blood gases any comb ination ph pco2 po2 co2 hco3 Kena Heath DO Work Phone: Start: 07-30-2024 End: 07-30-2024 Renal function panel Joycelyn Diane D O Work Phone: Start: 07-30-2024 Radiologic exam ches t single view Joycelyn Diane DO Work Phone: Start: 07-30-2024 Blood gases any comb ination ph pco2 po2 co2 hco3 Anabaptist Parkinson DO Start: 07-30-2024 Renal function panel Traylor quinchaya Guerra Diane DO Work Phone: Start: 07-29-2024 End: 07-29-2024 Glucose quantitative blood xcpt reagent strip Kena Heath DO Work Phone: Start: 07-29-2024 POCT GLUCOSE METER UNSOLICITED RESULTS Kena Heath DO Work Phone: Start: 07-29-2024 POCT GLUCOSE METER UNSOLICITED RESULTS Kena Heath DO Work Phone: Start: 07-29-2024 Renal function panel Traylor quinchaya Guerra Diane DO Work Phone: Start: 07-29-2024 IR CVC TUNNELED DIAL YSIS [employer]HE[employer] PLACEMENT Joycelyntawana Diane DO Work Phone: Start: 07-29-2024 Blood gases any comb ination ph pco2 po2 co2 hco3 Joycelyn Diane DO Work Phone: Start: 07-29-2024 EEG CONTINUOUS MONITORING Torito Mahajan Work Phone: Start: 07-29-2024 Renal function panel Layton Diane DO Work Phone: Start: 07-29-2024 Blood gases any comb ination ph pco2 po2 co2 hco3 Joycelyn Diane DO Work Phone: Start: 07-29-2024 Blood gases any comb ination ph pco2 po2 co2 hco3 Saroj Knox MD Work Phone: Start: 07-29-2024 End: 07-29-2024 Renal function panel Joycelyn Diane D O Work Phone: Start: 07-29-2024 Radiologic exam ches t single view Joycelyn Mari Diane DO Work Phone: Start: 07-28-2024 End: 07-28-2024 Assay of phosphorus inorganic Joycelyn Mari Diane DO Work Phone: Start: 07-28-2024 Glucose quantitative blood xcpt reagent strip Kena Heath DO Work Phone: Start: 07-28-2024 Assay of phosphorus inorganic Joycelyn Guerra Diane DO Work Phone: Start: 07-28-2024 Glucose quantitative blood xcpt reagent strip Kena Kumar DO Work Phone: Start: 07-28-2024 Radiologic exam ches t single view Joycelyn Mrai Diane DO Work Phone: Start: 07-28-2024 Basic metabolic pane l calcium total Joycelyn Diane DO Work Phone: Start: 07-28-2024 Ecg routine ecg w/le ast 12 lds trcg only w/o i&r Joycelyn Diane DO Work Phone: Start: 07-28-2024 EEG CONTINUOUS MONITORING Torito Mahajan Work Phone: Start: 07-28-2024 Glucose quantitative blood xcpt reagent strip Kena Heath DO Work Phone: Start: 07-28-2024 Blood gases any comb ination ph pco2 po2 co2 hco3 Saroj Knox MD Work Phone: Start: 07-28-2024 End: 07-28-2024 Comprehensive metabolic panel Kena Heath DO Work Phone: Start: 07-27-2024 Glucose quantitative blood xcpt reagent strip Kena Heath DO Work Phone: Start: 07-27-2024 Glucose quantitative blood xcpt reagent strip Kena Heath DO Work Phone: Start: 07-27-2024 Basic metabolic pane l calcium total Saroj Knox MD Work Phone: Start: 07-27-2024 Ecg routine ecg w/le ast 12 lds trcg only w/o i&r Saroj Knox MD Work Phone: Start: 07-27-2024 End: 07-27-2024 Glucose quantitative blood xcpt reagent strip Kena Heath DO Work Phone: Start: 07-27-2024 End: 07-27-2024 Glucose quantitative blood xcpt reagent strip Kena Heath DO Work Phone: Start: 07-27-2024 Complement antigen e ach component Karyn Jones MD Work Phone: Start: 07-27-2024 Blood gases any comb ination ph pco2 po2 co2 hco3 Kena Heath DO Work Phone: Start: 07-27-2024 Glucose quantitative blood xcpt reagent strip Kena Heath DO Work Phone: Start: 07-27-2024 End: 07-27-2024 Assay of phosphorus inorganic Karyn Jones MD Work Phone: Start: 07-27-2024 Hepatitis b surf ant ibody hbsab Joni Monson MD Work Phone: Start: 07-27-2024 Iaad ia hepatitis b surface antigen Joni Monson MD Work Phone: Start: 07-27-2024 Blood gases any comb ination ph pco2 po2 co2 hco3 Clara Mayes DO Work Phone: Start: 07-27-2024 EEG CONTINUOUS MONITORING Torito Keyshawn Work Phone: Start: 07-27-2024 End: 07-27-2024 Glucose quantitative blood xcpt reagent strip Kena Heath DO Work Phone: Start: 07-27-2024 Us retroperitoneal r eal time w/image limited Karyn Jones MD Work Phone: Start: 07-27-2024 End: 07-27-2024 Glucose quantitative blood xcpt reagent strip Kena Heath DO Work Phone: Start: 07-27-2024 Glucose quantitative blood xcpt reagent strip Kena Heath DO Work Phone: Start: 07-27-2024 Respiratory pathogen s DNA and RNA panel - Nasopharynx by MARISA with non-probe detection Kena Heath DO Work Phone: Start: 07-27-2024 Blood gases any comb ination ph pco2 po2 co2 hco3 Saroj Knox MD Work Phone: Start: 07-27-2024 End: 07-27-2024 [facility] Work [facility]: Start: 07-27-2024 Manual Differential panel - Blood Kena Heath DO Work Phone: Start: 07-27-2024 End: 07-27-2024 Smr prim src gram/giemsa stain bct fungi/cell [facility] Work Phone: Start: 07-27-2024 End: 07-27-2024 Assay of troponin quantitative Clara Mayes DO Work Phone: Start: 07-27-2024 Insj non-tunneled ce ntral venous cath age 4 yr/> Calixto Trevino MD Work Phone: Start: 07-27-2024 Us vasc access sits vsl patency ndl entry Calixto Trevino MD Work Phone: Start: 07-27-2024 Radiologic exam ches t single view Saroj Knox MD Work Phone: Start: 07-26-2024 Blood gases any comb ination ph pco2 po2 co2 hco3 [facility] Work Phone: Start: 07-26-2024 [facility] Work Phone: Start: 07-26-2024 Artl cathj/cannulj mntr/transfusion spx prq Calixto Trevino MD Work Phone: Start: 07-26-2024 Creatinine other source Sajennifer-Mario Alberto Momin DO Work Phone: Start: 07-26-2024 Iaadiadoo not otherw ise specified Sajennifer-Mario Alberto Momin DO Work Phone: Start: 07-26-2024 Comprehensive metabo lic panel Kena Heath DO Work Phone: Start: 07-26-2024 Radiologic exam ches t single view Clara Mayes DO Work Phone: Start: 07-26-2024 Radiologic exam abdo men 1 view Kalia Perez MD Work Phone: Start: 07-26-2024 Ct cervical spine w/ o contrast material Clara Mayes DO Work Phone: Start: 07-26-2024 Ct head/brain w/o co ntrast material Clara Mayes DO Work Phone: Start: 07-26-2024 Ecg routine ecg w/le ast 12 lds trcg only w/o i&r Clara Mayes DO Work Phone: Start: 07-26-2024 Thyrotropin [Units/v olume] in Serum or Plasma Elieser Solis MD Work Phone: Start: 07-24-2024 Antibody screen Savana Davis NP Comment on above: Performed By: #### B , BTS, [id number] ####[facility] [id number] [place], [place], [address] Start: 02-02-2024 CT of chest without contrast Dr. Sin Lujan Work Phone: Start: 10-29-2023 Investigation of transfusion reaction Dr. Sin Lujan Work Phone: Start: 10-29-[address] l culture Dr. Sin Lujan Work Phone: Start: 10-20-[address] Aashish Lujan Work Phone: Start: 10-13-[address] Suraj Lujan Work Phone: Start: 08-06-2023 CT of chest without contrast STEELSCOPE OPERATORPaddy Davis NP Work Phone: Start: 06-02-[address] Reynaldo Lujan Work Phone: Start: 02-27-2023 Cardiovascular stres s test using pharmacologic stress agent Dr. Sin Lujan Work Phone: Start: 10-11-2022 Diagnostic radiograp hy of abdomen Dr. Sin Lujan Work Phone: Start: 05-29-[address] Reynaldo Lujan Work Phone: Start: 02-18-2022 CT of abdomen with contrast Dr. Sin Lujan Work Phone: Start: 02-04-2018 History of placement of stent for coronary artery disease History of coronary artery stent placement Dr. Sin Lujan Work Phone: Start: 04-02-2012 Colonoscopy Kidney Computer Programming Supervisor rdinators Work Phone: Start: 12-26-2009 Lipid 1996 panel - S dottie or Plasma [facility] Work Phone: Appendectomy No PCP None Hysterectomy No PCP None Plan of Treatment Date Care Activity Detail Author Start: 2034 RSV Vaccine (1 - 1-dose 75+ series) RSV Vaccine (1 - 1-dose 75+ series) [facility] Start: 08-12-2029 Cyanocobalamin vitamin b-12 Vitamin B-12 [facility] Start: 08-12-2029 [facility] Start: 09-04-2027 Diabetes Screening Diabetes Screening [facility] Start: 07-08-2027 DTaP/Tdap/Td Vaccines (3 - Td or Tdap) DTaP/Tdap/Td Vaccines (3 - Td or Tdap) [facility] Start: 07-08-2027 Urine microalbumin profile DTaP,Tdap,Td Vaccine (3 - Td or Tdap) [facility] Start: 07-08-2027 [facility] Start: 01-31-2026 Pneumococcal Vaccine: 50+ Years (3 of 3 - PCV20 or PCV21) Pneumococcal Vaccine: 50+ Years (3 of 3 - PCV20 or PCV21) [facility] Start: 09-20-2025 Pneumococcal Vaccine: Pediatrics (0 to 5 Years) and At-Risk Patients (6 to 64 Years) (3 of 3 - PPSV23 or PCV20) Pneumococcal Vaccine: Pediatrics (0 to 5 Years) and At-Risk Patients (6 to 64 Years) (3 of 3 - PPSV23 or PCV20) [facility] Start: 09-20-2025 [facility] Start: 09-06-2025 Diabetes: Estimated Glomerular Filtration Rate for Kidney Health Diabetes: Estimated Glomerular Filtration Rate for Kidney Health [facility] Start: 08-30-2025 Diabetes: Estimated Glomerular Filtration Rate for Kidney Health Diabetes: Estimated Glomerular Filtration Rate for Kidney Health [facility] Start: 08-25-2025 Diabetes: Estimated Glomerular Filtration Rate for Kidney Health Diabetes: Estimated Glomerular Filtration Rate for Kidney Health [facility] Start: 08-24-2025 [facility] Start: 08-11-2025 Diabetes: Estimated Glomerular Filtration Rate for Kidney Health Diabetes: Estimated Glomerular Filtration Rate for Kidney Health [facility] Start: 08-10-2025 [facility] Start: 07-26-2025 Hemoglobin A1c measurement [facility] Start: 07-26-2025 Thyroid stimulating hormone measurement [facility] Start: 01-06-2025 Patient discharge [facility] Start: 01-06-2025 Referral to occupational therapist [facility] Start: 01-06-2025 Referral to service [facility] Start: 01-05-2025 [facility] Start: 01-05-2025 Care of hemodialysis equipment [facility] Start: 01-05-2025 Hemodialysis care [facility] Start: 01-05-2025 [facility] Start: 01-05-2025 [facility] Start: 01-04-2025 End: 01-04-2025 [facility] Start: 01-04-2025 Care regimes management [facility] Start: 01-04-2025 Notification of physician [facility] Start: 01-04-2025 Continuous pulse oximetry [facility] Start: 01-04-2025 Care of hemodialysis equipment [facility] Start: 01-04-2025 Hemodialysis care [facility] Start: 01-04-2025 [facility] Start: 01-04-2025 Application of intermittent pneumatic compression device [facility] Start: 01-04-2025 End: 01-04-2025 [facility] Start: 01-04-2025 Notification of physician [facility] Start: 01-04-2025 Consultation for treatment [facility] Start: 01-04-2025 Following clinical pathway protocol [facility] Start: 01-04-2025 Ambulation without limitation [facility] Start: 01-04-2025 Assessment of risk of venous thromboembolism [facility] Start: 01-04-2025 Inhalation therapy procedure [facility] Start: 01-04-2025 Insertion of catheter into peripheral vein [facility] Start: 01-04-2025 Measuring intake and output [facility] Start: 01-04-2025 Oxygen therapy [facility] Start: 01-04-2025 Providing care according to standard [facility] Start: 01-04-2025 Referral to bee farmer [facility] Start: 01-04-2025 [facility] Start: 01-04-2025 Care regimes management [facility] Start: 01-04-2025 Dual pressure spontaneous ventilation support [facility] Start: 01-04-2025 Patient referral to dietitian [facility] Start: 01-03-2025 Admission procedure [facility] Start: 12-28-2024 Anesthesia vascular shunt/shunt revision [facility] Start: 12-28-2024 Arteriovenous anastomosis open direct [facility] Start: 12-28-2024 Patient discharge [facility] Start: 2024 Advance Directive Discussion Advance Directive Discussion [facility] Start: 2024 Screening for osteoporosis Bone Density Screening [facility] Start: 11-20-2024 [facility] Start: 11-04-2024 [facility] Start: 08-13-2024 End: 08-13-2024 ambulatory [facility] Start: 08-13-2024 End: 08-13-2024 Patient encounter procedure 08/13/2024 11:15 AM EDT Office Visit [facility] [address] [place] [address] [phone] Rmoero Wright MD [address] [place], [place] [id number] [facility] Start: 08-10-2024 End: 07-27-2025 CT Head WO contrast [facility] Work Phone: Start: 07-04-2024 Covid-19 Vaccine ( season) Covid-19 Vaccine ( season) [facility] Start: 07-04-2024 COVID-19 Vaccine ( season) COVID-19 Vaccine ( season) [facility] Start: 07-04-2024 COVID-19 Vaccine ( season) COVID-19 Vaccine ( season) [facility] Start: 07-04-2024 Influenza vaccination Influenza Vaccine (#1) [facility] Start: 07-04-2024 [facility] Start: 10-13-2023 [facility] Start: 10-13-2023 Bacteria identified in Urine by Culture [facility] Start: 10-23-2022 Shingrix Vaccine (2 of 2) Shingrix Vaccine (2 of 2) [facility] Start: 10-23-2022 Zoster Vaccines (2 of 2) Zoster Vaccines (2 of 2) [facility] Start: 10-23-2022 [facility] Start: 07-04-2022 Patient referral [facility] Work Phone: Start: 04-02-2022 Screening for malignant neoplasm of colon [facility] Start: 2019 RSV Immunization aged 60 or older (1 - 1-dose 60+ series) RSV Immunization aged 60 or older (1 - 1-dose 60+ series) [facility] Start: 2019 RSV Immunization for Adults (1 - Risk 60-74 years 1-dose series) RSV Immunization for Adults (1 - Risk 60-74 years 1-dose series) [facility] Start: 2019 [facility] Start: 03-05-2017 End: 03-06-2017 *CMP Complete Metabolic Panel *CMP Complete Metabolic Panel [facility] Work Phone: Start: 03-05-2017 End: 03-06-2017 *Microalbumin, Creatine Ratio, rand urine *Microalbumin, Creatine Ratio, rand urine [facility] Work Phone: Start: 03-05-2017 End: 03-06-2017 HbA1c *HgA1C [facility] Work Phone: Start: 03-05-2017 End: 03-06-2017 Lipid panel [AGGREGATE] *Lipid Profile [facility] Work Phone: Start: 02-18-2017 End: 02-23-2017 *CMP Complete Metabolic Panel *CMP Complete Metabolic Panel [facility] Work Phone: Start: 02-18-2017 End: 02-23-2017 *Microalbumin, Creatine Ratio, rand urine *Microalbumin, Creatine Ratio, rand urine [facility] Work Phone: Start: 02-18-2017 End: 02-23-2017 Lipid panel [AGGREGATE] *Lipid Profile [facility] Work Phone: Start: 12-26-2014 Lipid panel Lipid Screening [facility] Start: 01-21-2013 End: 01-21-2013 *BMP *BMP [facility] Work Phone: Start: 01-21-2013 End: 01-21-2013 *CBC with Differential *CBC with Differential [facility] Work Phone: Start: 01-21-2013 End: 01-21-2013 *CDIF - Clostridium Diff. Toxin Stool *CDIF - Clostridium Diff. Toxin Stool [facility] Work Phone: Start: 01-21-2013 End: 01-21-2013 Erythrocyte sedimentation rate *Sedimentation Rate (ESR) [facility] Work Phone: Start: 01-21-2013 End: 01-21-2013 Helicobacter pylori IgG Ab [Units/volume] in Serum *Helicobacter pylori [facility] Work Phone: Start: 01-21-2013 End: 01-21-2013 PT-TMJ PT-TMJ Physical Therapy [facility], [address] [place] [address], [id number] [facility] Work Phone: Start: 12-27-2012 Diabetes Screening Diabetes Screening [facility] Start: 12-04-2012 Screening for malignant neoplasm of breast Mammogram Screening [facility] Start: 2009 Pneumococcal Vaccine: 50+ (1 of 1 - PCV) Pneumococcal Vaccine: 50+ (1 of 1 - PCV) [facility] Start: 2009 Shingrix Vaccine (1 of 2) Shingrix Vaccine (1 of 2) [facility] Start: 04-30-2005 Urine microalbumin profile DTaP,Tdap,Td Vaccine (2 - Tdap) [facility] Start: 2004 Screening for malignant neoplasm of colon [facility] Start: 1999 Screening for malignant neoplasm of breast [facility] Start: 1989 Screening for malignant neoplasm of cervix [facility] Start: 1980 Screening for malignant neoplasm of cervix [facility] Start: 1978 Hepatitis A Vaccines (1 of 2 - Risk 2-dose series) Hepatitis A Vaccines (1 of 2 - Risk 2-dose series) [facility] Start: 1977 Anxiety Screening Anxiety Screening [facility] Start: 1977 Depression Screening Depression Screening [facility] Start: 1977 Diabetes: Urine Albumin-Creatinine Ratio for Kidney Health Diabetes: Urine Albumin-Creatinine Ratio for Kidney Health [facility] Start: 1977 Hepatitis C screening Hepatitis C Screening [facility] Start: 1977 HIV screening HIV Screening [facility] Start: 1977 [facility] Start: 1971 Depression Monitoring Depression Monitoring [facility] Start: 1971 [facility] Start: 1969 Diabetic foot examination [facility] Start: 1969 Glaucoma screening [facility] Start: 1969 Preventive dental service [facility] Start: 1960 MMR Vaccines (1 of 1 - Standard series) MMR Vaccines (1 of 1 - Standard series) [facility] Start: 1960 [facility] Start: 1959 Annual wellness visit [facility] Start: 1959 Cyanocobalamin vitamin b-12 Vitamin B-12 [facility] Start: 1959 Diabetes: Celiac Disease Screening Diabetes: Celiac Disease Screening [facility] Start: 1959 Lipid panel [facility] Start: 1959 Screening for malignant neoplasm of colon [facility] Start: 1959 [facility] End: 08-09-2024 Bacteria identified in Urine by Culture [facility] [employer] Work Phone: End: 08-20-2024 Blood gases, arterial measurement [facility] End: 08-20-2024 Blood gases, venous measurement [facility] [employer] Work Phone: CT Chest [facility] CT Chest W contrast IV [facility] End: 08-05-2024 ECG 12 lead [facility] Work Phone: Exercise tolerance test [facility] Lipid 1995 panel - S dottie or Plasma [facility] 1995 panel - S dottie or Plasma [facility] Measurement of respiratory function [facility] Patient Education [facility] Work Phone: Patient referral [facility] Work Phone: Positron emission tomography with computed tomography [facility] Vitamin D, 25-hydrox y measurement [facility] Immunizations Immunization Date Immunization Notes Care Provider Jean Carlos [facility] 10-28-2024 Pneumococcal Vaccine PCV20 (Prevnar 20) Dr. Bird Lujan MD Work Phone: [facility] 10-28-[address] Bird Lujan MD Work Phone: [facility] 09-27-2024 Pfizer Covid-19 (Comirnaty) Dr. Bird Lujan MD Work Phone: [facility] 07-24-2024 Influenza, seasonal, injectable, preservative free; Translations: [Influenza, Split Virus, Trivalent, PF] Tami Alfredo DIGITAL DESIGN ENGINEER - SUPERVISOR WHIPPED TOPPING Work Phone: [facility] 07-24-2024 Lucina Galvan DO Work Phone: [facility] 08-28-2022 influenza, injectabl e, quadrivalent, contains preservative Lucina Kilway-Kluever DO Work Phone: [facility] 08-28-2022 influenza, injectabl e, quadrivalent, preservative free Dr. Bird Lujan MD Work Phone: [facility] 08-28-2022 zoster vaccine recombinant [facility] DO Work Phone: [facility] 08-28-2022 influenza virus vaccine, unspecified formulation [facility] Work Phone: [facility] 03-22-2021 Moderna COVID-19 Vaccine 100 MCG/0.5ML Intramuscular Suspension No PCP None [facility] 02-22-2021 Moderna COVID-19 Vaccine 100 MCG/0.5ML Intramuscular Suspension No PCP None [facility] 01-31-2021 pneumococcal conjuga te vaccine, 13 valent No PCP None [facility] [address] Work Phone: 09-20-2020 pneumococcal polysaccharide vaccine, [address] Sin Lujan Work Phone: [facility] 09-20-2020 pneumococcal vaccine , unspecified formulation Dr. Sin Lujan Work Phone: [facility] Work Phone: 08-28-2020 influenza, injectabl e, quadrivalent, preservative free [employer] OPERATOREliaC Jeanna Davis NP Work Phone: [facility] 08-28-2020 influenza, seasonal, injectable Dr. Sin Lujan Work Phone: [facility] 08-28-2020 [facility] DO Work Phone: [facility] 08-12-2018 influenza, injectabl e, quadrivalent, preservative free Dr. Bird Lujan MD Work Phone: [facility] 08-12-2018 influenza, seasonal, injectable No PCP None [facility]up[facility] [place] [address] Work Phone: 08-11-[address] Sin Lujan Work Phone: [facility] 08-11-2017 Influenza, seasonal, injectable, preservative free Tami Alfredo DIGITAL DESIGN ENGINEER - SUPERVISOR [employer] Work Phone: [facility] 08-11-2017 [facility] DO Work Phone: [facility] 07-08-2017 influenza, injectabl e, quadrivalent, contains preservative No PCP None JE-Bxubabmbrg-[facility] [employer] [address] Work Phone: 07-08-2017 influenza, injectabl e, quadrivalent, preservative free Dr. Bird Lujan MD Work Phone: [facility] 07-08-2017 tetanus toxoid, redu juliette diphtheria toxoid, and acellular pertussis vaccine, adsorbed No PCP None PI-Lgznszoput-IMO [employer] [address] Work Phone: 08-12-2016 pneumococcal polysaccharide vaccine, 23 valent No PCP None [facility] [employer] [address] Work Phone: 07-15-2016 influenza, injectabl e, quadrivalent, preservative free STEELSCOPE OPERATORPaddy Davis NP Work Phone: [facility] 07-15-2016 influenza, seasonal, injectable Dr. Sin Lujan Work Phone: [facility] 08-07-2015 influenza, injectabl e, quadrivalent, preservative free Dr. Bird Lujan MD Work Phone: [facility] 08-07-2015 influenza, seasonal, injectable No PCP None [facility] [address] Work Phone: 08-03-[address] Sin Lujan Work Phone: [facility] 08-03-2014 Influenza, seasonal, injectable, preservative free Tami Alfredo DIGITAL DESIGN ENGINEER - SUPERVISOR [employer]IP[employer] TOPPING Work Phone: [facility] 08-03-2014 [facility] DO Work Phone: [facility] 04-30-1995 diphtheria and tetan us toxoids, adsorbed for pediatric use [facility] DO Work Phone: [facility] Payers Date Payer Category Payer Unknown [id number] 2024 Private Health Insurance O [facility] [id number] 2024 Medicare [id number] 2024 Commercial Managed C [facility] - HMO [id number] 2024 Unknown 2024 Self-pay [id number] 2023 Unknown [id number] 2011 Private Health Insurance [id number] Unknown [id number] Unknown [facility] PACKAGE PLAN [id number] Unknown [id number] ..840.1.307033.3.579.2. 462 Unknown [id number] 12.19.830.1.869259.3.579.2. 462 Unknown [id number] 2.16.840.1.815718.3.579.2. 462 Unknown [id number] 2.16.840.1.373218.3.579.2. 462 Unknown [id number] 2.16.840.1.231017.3.579.2. 462 Unknown [id number] 2.16.840.1.596596.3.579.2. 462 Unknown [id number] 2.16.840.1.280887.3.579.2. 462 Unknown [id number] 2.16.840.1.216378.3.579.2. 462 Unknown [id number] 2.16.840.1.584389.3.579.2. 462 Unknown [id number] 2.16.840.1.316382.3.579.2. 462 Unknown [id number] 2.16.840.1.533725.3.579.2. 462 Unknown [id number] 2.16.840.1.338922.3.579.2. 462 Unknown [id number] 2.16.840.1.412295.3.579.2. 462 Unknown [id number] 2.16.840.1.910011.3.579.2. 462 Unknown [id number] 2.16.840.1.495195.3.579.2. 462 Unknown [id number] 2.16.840.1.657052.3.579.2. 462 Unknown [id number] 2.16.840.1.664025.3.579.2. 462 Unknown [id number] 2.16.840.1.096616.3.579.2. 462 Unknown [id number] 2.16.840.1.707410.3.579.2. 462 Unknown [id number] 2.16.840.1.782885.3.579.2. 462 Unknown [id number] 2.16.840.1.337918.3.579.2. 462 Unknown [id number] 2.840.1.384523.3.579.2. 462 Unknown [id number] 2.840.1.171793.3.579.2. 462 Unknown [id number] 2.840.1.845555.3.579.2. 462 Unknown [id number] 2.840.1.423832.3.579.2. 462 Unknown [id number] 2.840.1.325943.3.579.2. 462 Unknown [id number] 2.840.1.983971.3.579.2. 462 Unknown [id number] 2.840.1.038566.3.579.2. 462 Unknown [id number] 2.840.1.174520.3.579.2. 462 Unknown [id number] 2.840.1.341309.3.579.2. 462 Unknown [id number] .840.1.984062.3.579.2. 462 Unknown [id number] 2.840.1.993219.3.579.2. 462 Unknown [id number] 2.840.1.366905.3.579.2. 462 Unknown [id number] 2.840.1.365900.3.579.2. 462 Unknown [id number] 2.840.1.618553.3.579.2. 462 Unknown [id number] .840.1.083786.3.579.2. 462 Unknown [id number] 2.840.1.339747.3.579.2. 462 Unknown [id number] 2.840.1.536296.3.579.2. 462 Unknown [id number] 2.840.1.166200.3.579.2. 462 Unknown [id number] 2.840.1.599110.3.579.2. 462 Unknown [id number] 2.16.840.1.151075.3.579.2. 462 Unknown [id number] 2.16.840.1.036703.3.579.2. 462 Social History Date Type Detail Facility Start: 01-10-2022 End: 07-14-2023 Tobacco smoking status RIIS Unknown if ever smoked [facility] Start: 08-26-2020 None [facility] Start: 08-26-2020 Spouse/ Signif icant Other [facility] Start: 08-29-2020 Cigarettes [facility] Start: 1960 Sex Assigned At Female [facility] Start: 08-12-2024 End: 08-24-2024 Current smoker Current smoker [facility] Start: 1960 Sex assigned at S [facility] Start: 08-12-2024 End: 08-24-2024 Gender identity Not on file [facility] Start: 08-12-[address] [facility] Start: 08-12-2024 Tobacco use and exposure Smokeless tobacco non-user [facility] Has the [employer], or [employer] threatened to shut off services in your home in past 12Mo No [employer] [facility] How often to you hav e a drink containing alcohol? Never [facility] How many standard drinks containing alcohol do you have on a typical day? [employer] [facility] (I/We) worried belinda er (my/our) food would run out before (I/we) got money to buy more. Never true [facility] Start: 07-26-2024 End: 01-20-2025 Sex Female (finding) [facility] Start: 03-23-2009 End: 01-10-2025 Tobacco smoking status NHIS Ex-smoker [facility] End: 12-18-2009 History of tobacco use Current smoker [facility] End: 12-18-2009 History of tobacco use Cigarette Smoker [facility] Start: 04-02-2012 Alcoholic beverage intake Current non-drinker of alcohol (finding) [facility] Medical Equipment Procedure Code Equipment Code Equipment Origin al Text Equipment Identifier Dates Creation, AV fistula [id number] FDA Start: 12-28-2024 Creation, AV fistula [id number] FDA Start: 12-28-2024 Creation, AV fistula [id number] FDA Start: 12-28-2024 Blood Sugar Diagnostic (Freestyle Precision Jeff Strips) strip Start: 08-26-2023 Blood Sugar Diagnostic (Freestyle Precision Jeff Strips) strip Start: 08-26-2023 Blood Sugar Diagnostic (Freestyle Precision Jeff Strips) strip Start: 08-26-2023 Blood Sugar Diagnostic (Freestyle Precision Jeff Strips) strip Start: 08-26-2023 Blood Sugar Diagnostic (Freestyle Precision Jeff Strips) strip Start: 08-26-2023 Blood Sugar Diagnostic (Freestyle Precision Jeff Strips) strip Start: 08-26-2023 Blood Sugar Diagnostic (Freestyle Precision Jeff Strips) strip Start: 08-26-2023 Blood Sugar Diagnostic (Freestyle Precision Jeff Strips) strip Start: 08-26-2023 Blood Sugar Diagnostic (Freestyle Precision Jeff Strips) strip Start: 08-26-2023 test blood sugar s 6-8 times daily [id number] Start: 03-23-2009 Goals Date Patient Goal Desired Activity /State Functional Status Date Assessment Result Facility 01-06-2025 Functional status Ambulates;Bathroom Priv ilege [facility] Work Phone: Mental Status Date Assessment Result Facility 01-06-2025 Cognitive function Voice[facility]Name [facility] Work Phone: 12-28-2024 Cognitive function Sedated [facility] Work Phone: 12-28-2024 Cognitive function Voice[facility]Name [facility] Work Phone: 11-20-2024 Cognitive function Awake;Alert;A ppropriate;Fol lows Commands [facility] Work Phone: Clinical Notes 05-20-2023 to 01-11-2025 Telephone Encounter - [place] James - 12/30/2024 11:00 AM ESTTelephone Encounter - [place] James - 12/30/2024 11:00 AM ESTTelephone Encounter - Otilia Portillo Tech - 12/29/2024 10:50 AM EST Note Date & Type Note Facility 01-11-2025 Radiology Diagnos tic study note [facility] 01-06-2025 Note [facility] 01-03-2025 Note [facility] 12-30-2024 Telephone encount er Note Called and spoke with the patient in regards to kidney transplant referral, she states she started the process with [facility], and would like to go through the process at that center, as one center is enough to go through testings, and appointments. Advised the patient if she changes her mind, provided her with our office phone number, referral ended, and she verbalized understanding. Montana James [facility] 12-30-2024 Miscellaneous Notes Formattin g of this note might be different from the original. Called and spoke with the patient in regards to kidney transplant referral, she states she started the process with [facility], and would like to go through the process at that center, as one center is enough to go through testings, and appointments. Advised the patient if she changes her mind, provided her with our office phone number, referral ended, and she verbalized understanding. [place] James documented in this encounter [facility] 12-29-2024 Telephone encount er Note I spoke with Lita at [facility] who confirmed the patients demographic information and confirmed that the phone number that we have on file for the patient is incorrect. The correct phone number is [phone]. [facility] 12-29-2024 Miscellaneous Notes Formattin g of this note might be different from the original. I spoke with Lita at [facility] who confirmed the patients demographic information and confirmed that the phone number that we have on file for the patient is incorrect. The correct phone number is [phone]. documented in this encounter [facility] 12-28-2024 Note [facility] 12-24-2024 Telephone encount er Note Called Sandy Deng without success regarding referral. Voicemail message was left for patient to call our office. [place] James [facility] 12-24-2024 Miscellaneous Notes Formattin g of this note might be different from the original. Called Sandy Deng without success regarding referral. Voicemail message was left for patient to call our office. [place] James documented in this encounter [facility] 12-02-2024 Evaluation note Diagnosis Onset Date Resolution ESRD (end stage renal disease) on dialysis chronic November 2:26pm Atherosclerosis of coronary artery of [place] heart without angina pectoris chronic December 16 025 1:50pm ESRD (end stage renal disease) on dialysis chronic December 162024 1:50pm Essential (primary) hypertension chronic December 16, 025 1:50pm Hyperlipidemia chronic December 042024 1:50pm Acute respiratory failure with hypoxia and hypercarbia acute January 03, 2025 11:39pm Anemia acute January 03 11:39pm End-stage renal disease on hemodialysis acute January 03, 2025 11:39pm Left lower lobe pneumonia acute January 03, 2025 11:39pm Parapneumonic effusion acute [facility] 2024 11:39pm Pleural effusion on left acute January 03, 2025 11:39pm COPD exacerbation chronic January 032024 11:39pm DM type 1 (diabetes mellitus, type 1) chronic January 03 11:39pm Hypertension chronic January 03 11:39pm Acute hyperkalemia resolved January 03, 2025 11:39pm Chronic hypoxemic respiratory failure resolved January 03 11:39pm AV fistula acute January 11 2:55pm DM type 1 (diabetes mellitus, type 1) chronic January 27 8:40am High cholesterol chronic January 272024 8:40am Hypertension chronic January 27, 2025 8:40am Insulin pump titration chronic [facility] 2024 8:40am Osteoporosis chronic January 27, 2025 8:40am Presence of insulin pump chronic January 27, 2025 8:40am Vitamin D deficiency [facility] 2024 8:40am [facility] Work Phone: [phone] 411-270412-05-2024 Evaluation note* Diagnosis Onset Date Resolution Status Admit Date DM type 1 (diabetes mellitus , type 1) chronic October 07 1:39pm Hypertension chronic October 1:39pm Insulin pump titration chronic 2023 1:39pm Osteoporosis chronic October 1:39pm Presence of insulin pump October 07, 2024 1:39pm Underweight October 07, 2024 1:39pm Hypercarbia acute November 04, 2024 3:09pm Lung nodule, multiple acute James uary 2024 3:09pm Chronic hypoxic respiratory failure November 04 3:09pm Chronic obstructive pulmonar y disease November 04 3:09pm ESRD on hemodialysis 2024 3:09pm Hypertension November 04, 2024 3:09pm ESRD (end stage renal diseas e) on dialysis chronic December 02 2:26pm Atherosclerosis of coronary artery of [place] heart without angina pectoris December 16, 2 025 1:50pm ESRD (end stage renal diseas e) on dialysis chronic December 16, 2 025 1:50pm Essential (primary) hypertension chronic December 16, 2 025 1:50pm Hyperlipidemia chronic December 042024 1:50pm Acute respiratory failure hypoxia and hypercarbia acute January 11:39pm Anemia acute January 03 11:39pm End-stage renal disease on hemodialysis acute January 03, 2025 11:39pm Left lower lobe pneumonia acute January 03, 2025 11:39pm Parapneumonic effusion acute [facility] 2024 11:39pm Pleural effusion on left acute January 03, 2025 11:39pm COPD exacerbation chronic January 032024 11:39pm DM type 1 (diabetes mellitus , type 1) chronic January 03, 2025 11:39pm Hypertension chronic January 03, 11:39pm Acute hyperkalemia resolved January 03, 2025 11:39pm Chronic hypoxemic respirator y failure resolved January 03, 2025 11:39pm AV fistula acute January 11 2:55pm [facility] Work Phone: [phone]) 591-905610-29-2024 History of Present illness Narrative* SYED Buck CNP - 08/31/2024 1:43 PM EDT Patient seen by me at [facility]. Complete documentation including history with assessment and plan were documented in [facility] EMR. This encounter is for billing only. documented in this [facility]10-25-2024 History of Present illness Narrative* SYED Buck CNP - 08/27/2024 1:11 PM EDT Patient seen by me at [facility]. Complete documentation including history with assessment and plan were documented in [facility] EMR. This encounter is for billing only. documented in this [facility]10-23-2024 History of Present illness Narrative* SYED Buck CNP - 08/25/2024 4:04 PM EDT Patient seen by me at [facility]. Complete documentation including history with assessment and plan were documented in [facility] EMR. This encounter is for billing only. documented in this [facility]10-22-2024 Miscellaneous Notes* Care Coordination - SAPNA Ibarra - 08/24/2024 2:22 PM EDT Requested to arrange transport back to [facility]. Met with patient and spouse- patient ok with ambulette. Set up for 3:30 with roundtrluly, lavern card accepted the trip. Cost provided to patient 51.80-59.80. Updated patient ,spouse-MOODY Garcia. Communications Billing Analyst, Carmelina with [facility] and [facility]. * Care Coordination - Kimberlee Valdovinos - 08/24/2024 12:45 PM EDT [facility] per [facility] request. * Care Coordination - Jesi Bach RN - 08/24/2024 12:38 PM EDT Auth obtained for [facility]. SW messaged to set up transport, GENERAL [employer]ODUCTION LABORER messaged to send orders and MAR. * Care Plan - Juanis Rojas RN - 08/24/2024 6:45 AM EDT Problem: Knowledge Deficit Goal: Patient/family/caregiver demonstrates understanding of disease process, treatment plan, medications, and discharge instructions 08/24/2024644 by Juanis Rojas RN Outcome: Progressing 08/23/20241918 by Juanis Rojas RN Outcome: Progressing Problem: Potential for Compromised Skin Integrity Goal: Skin Integrity is Maintained or Improved 08/24/2024644 by Juanis Rojas RN Outcome: Progressing 08/23/20241918 by Juanis Rojas RN Outcome: Progressing Goal: Nutritional status is improving 08/24/2024 0645 by Juanis Rojas RN Outcome: Progressing 08/23/20241918 by Juanis Rojas RN Outcome: Progressing Problem: Urinary Incontinence Goal: Perineal skin integrity is maintained or improved 08/24/2024 0645 by Juanis Rojas RN Outcome: Progressing 08/23/20241918 by Juanis Rojas RN Outcome: Progressing Problem: Problem Interventions Goal: Assess Nutritional Intake 08/24/2024 06 by Juanis Rojas RN Outcome: Progressing 08/23/20241918 by Juanis Rojas RN Outcome: Progressing * Care Coordination - eJsi Bach RN - 08/23/2024 1:19 PM EDT Per [facility] liaison Carmelina, will re-submit for MMO auth today as MD states may be ready to discharge to rehab tomorrow if remains stable. Nephrology following non oliguric UMA, to received HD today (schedule is MW), monitoring for renal recovery. Will follow. Electronically signed by Jesi Bach RN on08/23/2024 at 1:24 PM * Care Plan - Nikolay Rene RN - 08/23/2024 11:22 AM EDT Problem: Knowledge Deficit Goal: Patient/family/caregiver demonstrates understanding of disease process, treatment plan, medications, and discharge instructions Outcome: Progressing Problem: Potential for Compromised Skin Integrity Goal: Skin Integrity is Maintained or Improved Outcome: Progressing Goal: Nutritional status is improving Outcome: Progressing * Care Plan - Bernadette Shen RN - 08/23/2024 3:35 AM EDT Problem: Potential for Compromised Skin Integrity Goal: Skin Integrity is Maintained or Improved Outcome: Progressing Problem: Potential for Compromised Skin Integrity Goal: Nutritional status is improving Outcome: Progressing Problem: Urinary Incontinence Goal: Perineal skin integrity is maintained or improved Outcome: Progressing * Care Plan - Izzy Goddard RN - 08/22/2024 2:14 AM EDT Problem: Knowledge Deficit Goal: Patient/family/caregiver demonstrates understanding of disease process, treatment plan, medications, and discharge instructions Outcome: Progressing Problem: Potential for Compromised Skin Integrity Goal: Skin Integrity is Maintained or Improved Outcome: Progressing Goal: Nutritional status is improving Outcome: Progressing Problem: Urinary Incontinence Goal: Perineal skin integrity is maintained or improved Outcome: Progressing Problem: Problem Interventions Goal: Assess Nutritional Intake Outcome: Progressing The patient is Moderately Stable - Low risk of patient condition declining or worsening The patient's goals for the shift include Pt will remain safe and comfortable for the shift. The clinical goals for the shift include Wean O2 \ * Care Coordination - Kayli Yepez RN - 08/21/2024 10:33 AM EDT Care Management Progress Note Discharge Plan: [facility] This mason liner was tasked to follow this patient through the weekend assisting with dischargeplanning. Chart was reviewed. [facility] status. Plan is to resubmit auth when patient is stable. Therapy see today request placed in [facility] for PT/OT updated notes to be completed on Friday for submission of AUTH Friday, pending clinical stability and medical clearance. Length of Stay (Days): 9 GMLOS: 3.5 * Care Coordination - Shruthi Schneider RN - 08/20/2024 9:22 AM EDT Care Management Progress Note Pt now on 7W, prior noted. Pt on 4L o2 per NC, 3L at baseline, Aerosols as needed. Oral steroid taper ordered. Nepho following, HD MWF. PT/OT evals IPR. Therapy see today for OT, PT saw yesterday. Auth for IPR good through today. Secure chat with attending/resident to se if pt ready for discharge, Per MD pt not ready for discharge today. Secure chat with IPR liaison to report pt not ready today, asked to let this CM know what needed for continued auth request or if plan to submit again Friday(since auth is good through today). Plan IPR, SW assist with transport. TCC will continue to follow. Length of Stay (Days): 8 GMLOS: 3.5 * Care Coordination - An Werner RN - 08/18/2024 12:20 PM EDT Care Management Progress Note Patient remains on T3 with respiratory failure, now at baseline and stable to transfer to [facility]. PT/OT recommending IPR. Confirmed with Table Tender Sludge Carmelina that Insurance Authorization started for [facility] this am. Will await authorization . Length of Stay (Days): 6 GMLOS: No GMLOS Documented * Care Plan - Elena Lira RN - 08/18/2024 5:59 AM EDT Problem: Knowledge Deficit Goal: Patient/family/caregiver demonstrates understanding of disease process, treatment plan, medications, and discharge instructions Outcome: Progressing Problem: Potential for Compromised Skin Integrity Goal: Skin Integrity is Maintained or Improved Outcome: Progressing Goal: Nutritional status is improving Outcome: Progressing Problem: Urinary Incontinence Goal: Perineal skin integrity is maintained or improved Outcome: Progressing Problem: Problem Interventions Goal: Assess Nutritional Intake Outcome: Progressing * Care Plan - Kary Valera RN - 08/17/2024 4:07 PM EDT The patient is Moderately Stable - Low risk of patient condition declining or worsening Problem: Knowledge Deficit Goal: Patient/family/caregiver demonstrates understanding of disease process, treatment plan, medications, and discharge instructions Outcome: Progressing Problem: Potential for Compromised Skin Integrity Goal: Skin Integrity is Maintained or Improved Outcome: Progressing Goal: Nutritional status is improving Outcome: Progressing Problem: Urinary Incontinence Goal: Perineal skin integrity is maintained or improved Outcome: Progressing Problem: Problem Interventions Goal: Assess Nutritional Intake Outcome: Progressing * Care Coordination - An Werner RN - 08/17/2024 9:22 AM EDT Care Management Progress Note Patient remains on T3 with respiratory failure, now at baseline and stable for transfer to [facility]. Discharge plan [facility]. Requested PT/OT evaluation today if possible to start insurance auth for return. Length of Stay (Days): 5 GMLOS: No GMLOS Documented * Care Coordination - Alanna Silva RN - 08/16/2024 12:33 PM EDT Care Management Progress Note Patient remains on T3 ICU, pending F transfer - medically stable for [facility]. PT/OT evals pending. Patient is from [facility]. DCP- return vs SNF vs home with [facility], ar planning on going. CM to follow. . Length of Stay (Days): 4 GMLOS: No GMLOS Documented * Care Plan - Fior Diane RN - 08/16/2024 3:56 AM EDT Problem: Knowledge Deficit Goal: Patient/family/caregiver demonstrates understanding of disease process, treatment plan, medications, and discharge instructions Outcome: Progressing Problem: Potential for Compromised Skin Integrity Goal: Skin Integrity is Maintained or Improved Outcome: Progressing Goal: Nutritional status is improving Outcome: Progressing Problem: Urinary Incontinence Goal: Perineal skin integrity is maintained or improved Outcome: Progressing Problem: Problem Interventions Goal: Assess Nutritional Intake Outcome: Progressing * Care Plan - Fior Diane RN - 08/15/2024 6:29 AM EDT Problem: Knowledge Deficit Goal: Patient/family/caregiver demonstrates understanding of disease process, treatment plan, medications, and discharge instructions Outcome: Progressing Problem: Potential for Compromised Skin Integrity Goal: Skin Integrity is Maintained or Improved Outcome: Progressing Goal: Nutritional status is improving Outcome: Progressing Problem: Urinary Incontinence Goal: Perineal skin integrity is maintained or improved Outcome: Progressing Problem: Problem Interventions Goal: Assess Nutritional Intake Outcome: Progressing * Care Plan - Lore Lezama RN - 08/14/2024 6:17 AM EDT Problem: Knowledge Deficit Goal: Patient/family/caregiver demonstrates understanding of disease process, treatment plan, medications, and discharge instructions Outcome: Progressing Problem: Potential for Compromised Skin Integrity Goal: Skin Integrity is Maintained or Improved Outcome: Progressing Goal: Nutritional status is improving Outcome: Progressing Problem: Urinary Incontinence Goal: Perineal skin integrity is maintained or improved Outcome: Progressing Problem: Problem Interventions Goal: Assess Nutritional Intake Outcome: Progressing * Care Coordination - WILMER Carroll - 08/13/2024 3:34 PM EDT SW coverage for today[facility] SW received SDMO consult due to pt being unable to answer any questions upon admission due to altered mental status. SW following along with TCC. * Care Coordination - Amira Stark - 08/13/2024 10:20 AM EDT Return referral placed to [facility] via Careport per TCC request. Await review and response regarding ability to accept. TCC notified. * Care Coordination - An Werner RN - 08/13/2024 9:56 AM EDT Care Managment Initial Assessment Date: 08/13/2024 Patient Name: Sandy Deng : 1960 Patient Information Source of Information: Patient Fire Control Assistant Name/Contact Information: Jose at the bedside. Cognition/Language: Impaired Permission given to speak with patient inbound sales representative/caregiver as indicated: Yes Confirmation of Payer with patient/family: Yes Payer Name: Medical [place]: No Confirmation of Primary Care Physician: Confirmed PCP Name: Dr. Bird Lujan Seen in last 2 years?: Yes Primary Caregiver: Self If assistance needed, confirmed caregiver ready, willing and able to care for patient at discharge:Yes Confirmed with: Victor Manuel Deng Living Arrangements Current Residence: House Number of Floors 2 (Lives on the first level.) Number of Entry Steps: 3 Bed/Bath Levels: Facility: Inpatient Rehab Facility Facility Name: [facility] Plan to Return: Yes Lives with: Spouse/significant other Support Systems: Spouse/significant other, Children Activities of Daily Living Ambulation: Independent Bathing/Dressing: Independent Elimination/Continence/Toileting: Independent Feeding: Independent Who Assists with Activities of Daily Living: Instrumental Activities of Daily Living Prescription Coverage: Yes Pharmacy Used: Medication Management: Mail order Who assists with medication securing and setup?: [facility] Transportation/Shopping: Assistance Provider Transportation/Shopping Assistance Provider Name: drives due to poor eyesight. Transportation Mode: Car Needs Assistance with Transportation at Discharge: No Meal Preparation: Independent Laundry/Cleaning: Independent Finances/Bill Paying: Independent Communication: Independent Types of Care Services/Equipment Utilized Care Services: Dialysis Type: NA Durable Medical Equipment: Oxygen (Continuous or prn) Oxygen Flow Rate: 3L continuous DME Provider: Judy Patient's Goal/Discharge Plan Patient expects to be discharged to: Return to [facility] to complete rehab. Discharge Planning Actions: Continue to follow Patient's Choice Rights and [employer] and Collaborative Relationships Disclosed as Indicated for Post-Acute Care: Interdisciplinary Team Engagement: Acute Rehab Social Work Referral for: Additional Information: Patient admitted to T3 from [facility] for Altered Mental Status. Confirmed at the bedside with Jose Deng that patient is from [facility] and that the discharge plan if for her to return. [facility] Patient is currently on continuous EEG and NIV. An Werner RN * Care Plan - Yolanda Aguilar RN - 08/12/2024 5:35 PM EDT The patient is Moderately Unstable - Medium risk of patient condition declining or worsening Problem: Knowledge Deficit Goal: Patient/family/caregiver demonstrates understanding of disease process, treatment plan, medications, and discharge instructions Outcome: Progressing Problem: Potential for Compromised Skin Integrity Goal: Skin Integrity is Maintained or Improved Outcome: Progressing Problem: Urinary Incontinence Goal: Perineal skin integrity is maintained or improved Outcome: Progressing Problem: Potential for Compromised Skin Integrity Goal: Nutritional status is improving Outcome: Not Progressing documented in this [facility]10-22-2024 [facility] 08-24-2024 Hospital course Narrative* William Jarrett DO - 08/24/2024 12:15 PM EDT Images from the original note were not included. Internal Medicine: Med Team Discharge Summary Sandy Deng : 1960 ADMIT DATE: 08/12/2024 DISCHARGE DATE: 08/24/24 PCP: Bird Lujan Visit Status: Admission Code Status: FULL CODE Primary Discharge Diagnosis: Acute on chronic hypoxia and hypercapnic respiratory failure COPD Secondary Discharge Diagnoses: T1DM with hyperglycemia UMA on CKD UTI vs Colonization with Abbi Electrolyte Derangements Normocytic anemia Altered Mental status secondary to CO2 narcosis MRSE positive in 1/2 Blood cultures - likely contamination Demand Ischemia Chronic mastoiditis Reason for Admission & Hospital Course: Sandy Deng is a 63-year-old female with past medical history significant for COPD on 4L NC atbaseline, CKD4 , and T1DM who was managed at [facility] from 08/12/24-08/24/24 for acute on chronic hypoxic and hypercapnic respiratory failure. Of note, patient was admitted from [facility] recent hospital admission from 07/26/24-08/10/24 when she was managed in the ICU for septic shock/subdural hematoma. While at [facility], patient experienced altered mental status and was found hypoxic in the 80's. She was managed in the ICU with NIV and brought to the general medical floor. While on the [facility], patient experienced AMS likely due to CO2 narcosis and was brought back to the ICU on NIV. She was stabilzed with improved mentation and ultimately was transferred back to the [facility] and strongly urged to use BiPap at night. She is currently AAOx3 after wearing the Bipap overnight, and is on 4 L of oxygen at 100%. She was ultimately stable upon discharge to [facility]. Disposition: Acute Rehab Activity: up with assist; Follow rehab recommendations Diet: Adult diet Regular; 4 carb choices (60 gm/meal) Discharge Medications: Medication List START taking these medications Roflumilast 500 MCG tablet Commonly known as: Daliresp Take 1 tablet (500 mcg) by mouth daily. CHANGE how you take these medications metoprolol tartrate 25 MG tablet Commonly known as: Lopressor Take 1 tablet (25 mg) by mouth 2 times daily. What changed: medication strength how much to take CONTINUE taking these medications albuterol 108 (90 Base) MCG/ACT inhaler aspirin 81 MG EC tablet Breztri Aerosphere 160-9-4.8 MCG/ACT aerosol Generic drug: Teesmnh-Gtqmjpjrxde-Bhmofgzxqc busPIRone 7.5 MG tablet Commonly known as: Buspar clopidogrel 75 MG tablet Commonly known as: Plavix [facility] Vitamin D3 25 MCG (1000 UT) chewable tablet Generic drug: Cholecalciferol Dexcom G6 Sensor misc Dexcom G6 transmitter misc estradiol 1 MG tablet Commonly known as: Estrace fluticasone 50 MCG/ACT nasal spray Commonly known as: Flonase Administer 2 sprays into each nostril daily. Shake gently. Before first use, prime pump. After use,clean tip and replace cap. gabapentin 100 MG capsule Commonly known as: Neurontin Take 2 capsules (200 mg) by mouth 2 times daily. insulin glargine 100 UNIT/ML injection Commonly known as: Lantus Inject 3 Units under the skin Nightly. ipratropium-albuterol 0.5-2.5 mg/3 mL nebulizer solution Commonly known as: Duo-Neb Kerendia 10 MG tablet Generic drug: Finerenone levoFLOXacin 750 MG tablet Commonly known as: Levaquin lisinopril 2.5 MG tablet mirtazapine 7.5 MG tablet Commonly known as: Remeron nitroglycerin 0.4 MG SL tablet Commonly known as: Nitrostat * Omnipod 5 [id number] Intro Gen 5 kit * Omnipod 5 [id number] Pods Gen 5 misc Prolia 60 MG/ML solution prefilled syringe Generic drug: denosumab simvastatin 40 MG tablet Commonly known as: Zocor SPS 15 GM/60ML suspension Generic drug: sodium polystyrene Trelegy Ellipta 200-62.5-25 MCG/ACT aerosol powder Generic drug: Etfqopdokly-Clpkaphwz-Mcbjca * This list has 2 medication(s) that are the same as other medications prescribed for you. Read thedirections carefully, and ask your doctor or other care provider to review them with you. STOP taking these medications guaiFENesin 100 MG/5ML liquid Commonly known as: Robitussin nitrofurantoin (macrocrystal-monohydrate) 100 MG capsule Commonly known as: Macrobid Where to Get Your Medications Information about where to get these medications is not yet available Ask your nurse or doctor about these medications metoprolol tartrate 25 MG tablet Roflumilast 500 MCG tablet Notable Medication Changes & Reasoning: Started roflumilast due to severity of COPD Consultants Urology Infectious Disease Nephrology Neuro Critical Care Procedures Performed EEG on 08/13 Significant Laboratory/Radiographic Data: Arterial Blood Gas 7.373 US renal->Bilateral renal cortical atrophy. Bilateral pleural effusions. CT/CTA head-> 1. Interval resolution of tiny RIGHT subdural hematoma. 2. BILATERAL mastoiditis and LEFT otitis media, new compared to 07/26/2024. 3. Perfusion exam demonstrates no acute infarct or at risk territory. 4. CTA demonstrates no large vessel occlusion. 5. Large right and small left pleural effusion with compressive atelectasis and/or infiltrate. Severe centrilobular emphysema. XR chest->Suspect mild pulmonary edema with small pleural effusion Pending Results at Time of Discharge N/A Follow Up Appointment(s): Urology PCP Dr. Lujna Nephrology Items to Address at Followup Visit: Urology: urinary retention, post voiding test, Johnson catheter PCP: Respiratory symptoms, mobility Nephrology: continue dialysis Cosigned by Savita Densie MD at 08/24/2024 1:33 PM EDT documented in this [facility]10-22-2024 History of Present illness Narrative* William Jarrett DO - 08/24/2024 11:13 AM EDT Med Team Progress Note Sandy Deng : 1960(63 y.o.) Date: August 24, 2024 Med Team: A Attending: Dr. Denise Chief Complaint: Hypercapnic Respiratory Failure Subjective: - No acute events overnight. - Currently, the patient states that she is feeling better. She is alert and able to communicate. She states that she is not SOB and has an appetite. Patient is saturating well on 4 L NC. Patient states that she has been constipated for the last few days. PRN meds used in last 24hrs: Heparin injection 1,600 units on 08/23 Heparin injection 1,700 units on 08/23 Review of Systems Constitutional: Negative. Negative for chills and fever. HENT: Negative. Eyes: Negative. Negative for photophobia and visual disturbance. Respiratory: Positive for shortness of breath. Negative for wheezing. Cardiovascular: Negative. Negative for chest pain and palpitations. Gastrointestinal: Positive for constipation. Negative for abdominal pain. Endocrine: Negative. Genitourinary: Negative. Negative for dysuria and hematuria. Musculoskeletal: Negative. Negative for arthralgias and myalgias. Skin: Negative. Negative for color change and wound. Neurological: Negative. Negative for tremors and headaches. Hematological: Negative. Psychiatric/Behavioral: Negative. Negative for confusion and decreased concentration. Scheduled Meds:aspirin, 81 mg, Oral, Daily atorvastatin, 20 mg, Oral, Nightly budesonide, 1 mg, Nebulization, BID busPIRone, 7.5 mg, Oral, BID clopidogrel, 75 mg, Oral, Daily fluticasone, 2 spray, Each Nostril, Daily gabapentin, 200 mg, Oral, BID guaiFENesin, 600 mg, Oral, BID heparin, 5,000 Units, SubCUTAneous, 2 times per day insulin glargine, 5 Units, SubCUTAneous, Nightly insulin lispro, 0-6 Units, SubCUTAneous, TID WC insulin lispro, 6 Units, SubCUTAneous, TID WC ipratropium-albuterol, 3 mL, Nebulization, 4x daily lisinopril, 2.5 mg, Oral, Daily [Held by provider] metoprolol tartrate, 25 mg, Oral, BID [Held by provider] mirtazapine, 7.5 mg, Oral, Nightly [Held by provider] mometasone-formoterol, 2 puff, Inhalation, BID pantoprazole, 40 mg, Oral, Nightly polyethylene glycol (PEG) 3350, 17 g, Oral, Daily [Held by provider] QUEtiapine, 25 mg, Oral, Nightly sodium chloride 0.9%, 5-40 mL, IntraVENous, q8h tamsulosin, 0.4 mg, Oral, Daily [Held by provider] tiotropium, 2 puff, Inhalation, Daily Continuous Infusions: Objective: BP 141/58 (BP Location: Left arm, Patient Position: Lying) Pulse 81 Temp 36.6 C (97.9 F) (Temporal) Resp 16 Ht 5' 6 (1.676 m) Wt 120 lb 5.9 oz (54.6 kg) SpO2 100% BMI 19.43 kg/m Physical Exam Constitutional: Appearance: Normal appearance. She is not ill-appearing or diaphoretic. HENT: Head: Normocephalic. Right Ear: External ear normal. Left Ear: External ear normal. Mouth/Throat: Mouth: Mucous membranes are dry. Pharynx: Oropharynx is clear. Eyes: General: Right eye: No discharge. Left eye: No discharge. Pupils: Pupils are equal, round, and reactive to light. Cardiovascular: Rate and Rhythm: Normal rate and regular rhythm. Pulses: Normal pulses. Heart sounds: Normal heart sounds. No murmur heard. No friction rub. No gallop. Pulmonary: Effort: Pulmonary effort is normal. No respiratory distress. Breath sounds: Normal breath sounds. No wheezing. Abdominal: General: Abdomen is flat. There is no distension. Palpations: Abdomen is soft. Tenderness: There is no abdominal tenderness. There is no guarding. Musculoskeletal: Cervical back: Normal range of motion. Skin: General: Skin is warm. Neurological: General: No focal deficit present. Mental Status: She is alert and oriented to person, place, and time. Psychiatric: Mood and Affect: Mood normal. Behavior: Behavior normal. Select Labs within last 24 hours Auto WBC Date Value Ref Range Status 08/24/2024 5.8 3.6 - 10.7 10*3/uL Final Hemoglobin Date Value Ref Range Status 08/24/2024 8.2 (L) 11.7 - 16.0 g/dL Final Hematocrit Date Value Ref Range Status 08/24/2024 25.5 (L) 35.0 - 47.0 % Final Platelets Date Value Ref Range Status 08/24/2024 198 140 - 440 10*3/uL Final MCV Date Value Ref Range Status 08/24/2024 90.4 77.0 - 99.0 fL Final SODIUM Date Value Ref Range Status 08/24/2024 130 (L) 135 - 145 mmol/L Final POTASSIUM Date Value Ref Range Status 08/24/2024 3.9 3.5 - 5.1 mmol/L Final CHLORIDE Date Value Ref Range Status 08/24/2024 100 98 - 107 mmol/L Final CARBON DIOXIDE Date Value Ref Range Status 08/24/2024 25 22 - 30 mmol/L Final UREA NITROGEN Date Value Ref Range Status 08/24/2024 20 (H) 7 - 17 mg/dL Final CREATININE Date Value Ref Range Status 08/24/2024 2.15 (H) 0.52 - 1.04 mg/dL Final GLUCOSE Date Value Ref Range Status 08/24/2024 282 (H) 70 - 100 mg/dL Final CALCIUM Date Value Ref Range Status 08/24/2024 7.3 (L) 8.4 - 10.4 mg/dL Final MAGNESIUM Date Value Ref Range Status 08/24/2024 1.8 1.6 - 2.3 mg/dL Final PHOSPHORUS Date Value Ref Range Status 08/24/2024 1.8 (L) 2.5 - 4.5 mg/dL Final No results found for: AST, ALT, PROT, BILITOT, ALKPHOS, INR, APTT, LIPASE No results found for: CKTOTAL, CKMB, TROPONINI No results found for: PROCAL, CHOL, TRIG, HDL, TSH, VITD25, HGBA1C, VANCOTROUGH Assessment and Plan: COPD Acute on chronic hypoxia and hypercapnic respiratory failure Saturating well on 4 L NC. Goal is between 88-92% Taper Oxygen down to reach goal saturation. Patient educated on importance of BiPAP overnight to help with oxygenation. Continue budesonide and Duonebs. Pulmonary and respiratory therapy following. T1DM with hyperglycemia Glucose is 277 before 9 units of insulin were given on 08/24. Monitor glucose Pt on 5 lantus, 6 lispro, and LDSSI Will continue current insulin regimen UMA on CKD Dialysis is planned for today. Last dialysis was 08/23 with 2.3 L removed. No volume overload noted on physical exam Creatine 3.39 and BUN is 37 Nephrology following, hoping for recovery Patient states that bladder feels full and reports some discomfort. Johnson placed, monitor I/O's Nephrology Consulted Urology Consulted Continue Flomax UTI vs Colonization with Abbi - Urine 08/21 noted to be milky white per nursing, UA showed 500 leukocytes, neg nitrite, >100WBC/RBC, many bacteria, mod yeast, many WBC clumps - Urine Culture showed normal urogenital keven present and 50,000-90,000 abbi albicans. - Hx abbi growth on recent urine cultures x2, no recent antifungal treatment - ID previously recommended against treatment for candiduria given she had johnson, did mention treatment if she has clinical vulvovaginitis Electrolyte Derangements -last Na was 130 with glucose of 277 -K 3.9, using 4 K bath (was hypokalemic over the weekend) -Ca 7.3 (last alb 2.9), iCa 3.9 repleted yest -phosp 1.8, not on binders Normocytic anemia Hgb is 8.2. Patient has been hospitalized multiple times over the past month which is likely contributing to decreased Hgb. No acute bleed suspected Patient given 2 units of pRBC this admission at ICU. Constipation Patient prescribed PRN Senna-docusate sodium 8.6-50 mg PO Patient prescribed Polyethylene glycol 17g packet Resolved Problems: Altered Mental status secondary to CO2 narcosis Patient is AAOx3 today. She states that she is feeling better. Glucose is 277 before 9 units of insulin were given. Will keep current insulin regimen since the Lantus was increased to 5 units yesterday. BiPAP at night will most likely help with the AMS due to CO2 narcosis. MRSE positive in 1/2 Blood cultures - likely contamination - aMRSE positive in 1/2 blood cultures- contamination vs infection, collected repeat blood cultures(no growth at 4 days), given one time dose vancomycin at ICU - ID following peripherally: low suspicion for active infection. Not on abx. - Recent hx of septic shock 2/2 CTX-M pseudomonas and staph aureus PNA with COVID-19 infection Chronic Problems and Follow Up Items: Demand Ischemia - Pt has hx of stent and NSTEMI, elevated troponin's looks to be stable around 0.070, discontinued trop trend on 08/13 Chronic mastoiditis - chronic tinnitus, no localized pain- doubt acute infection. No need to treat. If worsens clinically, consider ENT evaluation. - Goals of Care: FULL CODE - DVT Prophylaxis: Heparin - GI Prophylaxis: Protonix daily - Diet: Carb-Control Cosigned by Savita Denise MD at 08/24/2024 12:03 PM EDT Associated attestation - Savita Denise MD - 08/24/2024 12:03 PM EDT Patient seen and evaluated personally by me and discussed with resident team. I have reviewed the cantrell elements of all parts of the encounter. I agree with the assessment, plan and orders as documented See below note w/ any additional comments and/or exceptions: Patient resting comfortably in bed, at bedside. Using BiPAP at night which seems to be helping; severe COPD, oxygen dependent, on LAMA/LABA/ICS, end-stage, would add roflumilast (or azithromycin) as discussed w/ team since COPD is so severe. Abbi on urine cult, presuming colonization so no tx. Plan transfer back to [facility] when arrangements in place. 31 (Discharge [id number]) minutes spent belr-pt-ulga/floor time coordinating care and/or counseling patient. Savita Denise MD * Joni Monson MD - 08/23/2024 11:24 AM EDT Images from the original note were not included. Nephrology Progress Note Patient: Sandy Deng Room number: [id number] Date of Admit: 08/12/2024 LOS: 11 days Referring physician: Kemar Adames DO Outpatient X Ray Inspector: Christy Huerta Assessment/Plan: Mrs. Sandy Deng is a 63 year old female with PMH of CKD 4, DM type 1, HTN, CAD, COPD (3L [id number]), initially presenting with resp distress and delirium, Covid positive. Also found to havepseudomonas and staph aures PNA. She was intubated, now extubated. CT head showed a small right SDH. Consulted for UMA on CKD 4 - follows with Dr Christy Huerta ([place]). On review of available labs,Cr has been 2.4-2.8, last (04/26) Cr 2.4 eGFR 20, 24 hr cpolefc=5418 mg. On admit, (07/26) Cr 4.56, CRRT initiation for severe acidosis in setting of hemodynamic instability, cause of UMA thought to beATN in setttin of infection vs IRGN (complement levels found to be low). Now transitioned to iHD. Renal plan: 1-Non oliguric UMA -receiving HD on MWF, HD planned today -pt has TDC -will continue to monitor for renal recovery, serum creat still rising between tx -watch gabapentin dose, consider decreasing 2. Electrolytes -last Na was 130 with glucose of 299 -K 4, using 4 K bath (was hypokalemic over the weekend) -Ca 7.3 (last alb 2.9), iCa 3.9 repleted yest -phosp 2.5, not on binders 3. Acid-base - bicarb stable at 27 4. BP/volume status: -last BP 141/68 -on lisinopril 2.5 mg daily and metoprolol 25 mg bid (on hold) -UF goal 2-3 L off, had 2.3 removed on Sat 5. Anemia - Hgb 8.2 - pRBC needs per primary team 6. ID -off Abs -urine cx 50-90 K colonies of C. Albicans -johnson removed yesterday, had it over the weekend, watch for urinary retention 7. Other: -hypercapnic resp failure: on BiPAP at night -dispo: looking for [facility] Will follow along as directed. Thank you for allowing us to participate in the care of this patient. Joni Monson MD [facility] ([facility]) Office phone: [phone] Office fax: [phone] 08/23/2024 Subjective Patient seen this am, spouse at bedside. She was sleeping. He reports she was awake earlier today and ate breakfast. Last HD on Sat due to scheduling issues. Currently on 5 L NC. Medications: Scheduled Meds:aspirin, 81 mg, Oral, Daily atorvastatin, 20 mg, Oral, Nightly budesonide, 1 mg, Nebulization, BID busPIRone, 7.5 mg, Oral, BID clopidogrel, 75 mg, Oral, Daily fluticasone, 2 spray, Each Nostril, Daily gabapentin, 200 mg, Oral, BID guaiFENesin, 600 mg, Oral, BID heparin, 5,000 Units, SubCUTAneous, 2 times per day insulin glargine, 5 Units, SubCUTAneous, Nightly insulin lispro, 0-6 Units, SubCUTAneous, TID WC insulin lispro, 6 Units, SubCUTAneous, TID ipratropium-albuterol, 3 mL, Nebulization, 4x daily lisinopril, 2.5 mg, Oral, Daily [Held by provider] metoprolol tartrate, 25 mg, Oral, BID [Held by provider] mirtazapine, 7.5 mg, Oral, Nightly [Held by provider] mometasone-formoterol, 2 puff, Inhalation, BID pantoprazole, 40 mg, Oral, Nightly polyethylene glycol (PEG) 3350, 17 g, Oral, Daily [Held by provider] QUEtiapine, 25 mg, Oral, Nightly sodium chloride 0.9%, 5-40 mL, IntraVENous, q8h tamsulosin, 0.4 mg, Oral, Daily [Held by provider] tiotropium, 2 puff, Inhalation, Daily Review of Systems: As above Physical Exam: Vitals: 08/23/24 0637 08/23/24 0741 08/23/24 0749 08/23/24 0759 BP: 141/68 BP Location: Left arm Patient Position: Lying Pulse: 76 75 74 Resp: 18 18 16 Temp: 36.3 C (97.3 F) TempSrc: Temporal SpO2: 97% 95% 100% Weight: 55.4 kg (122 lb 2.2 oz) Height: Today's weight: Weight: 55.4 kg (122 lb 2.2 oz) Admission weight: Weight: 57.2 kg (126 lb) Wt Readings from Last 3 Encounters: 08/23/24 55.4 kg (122 lb 2.2 oz) 08/07/24 57.4 kg (126 lb 8.7 oz) Estimated body mass index is 19.71 kg/m as calculated from the following: Height as of this encounter: 1.676 m (5' 6). Weight as of this encounter: 55.4 kg (122 lb 2.2 oz). FIO2 needs: on 3 L NC Physical exam General: sleeping, lying in bed HEENT: Sclera clear, EOMI, MMM, Nose/ears/hearing grossly normal Neck: Supple, trachea midline, no mass Right TDC Chest: Normal excursion Heart: RRR, no rub/heave Lungs: Clear bilaterally, unlabored Abd: Soft, (+) BS, non-tender, non distended Ext: No edema Neuro: No tremor/myoclonus Skin: warm and dry, no rash LABS: Recent Labs 08/21/2431308/21/24 0825 08/21/24 1432 08/22/24 0643 08/23/24313 WBC 6.2 -- -- 4.8 4.4 HGB 9.9* < > 10.2 8.6* 8.2* HCT 30.6* -- -- 26.6* 25.5* MCV 91.3 -- -- 92.0 89.8 PLT 157 -- -- 161 167 < > = values in this interval not displayed. Recent Labs 08/21/2431308/21/24 0946 08/22/24 0643 08/23/24313 NA 133* -- 130* 130* K 3.2* -- 3.4* 4.0 CL 99 -- 97* 99 CO2 27 -- 28 27 BUN 47* -- 28* 37* CREATININE 4.52* -- 3.04* 3.39* GLUCOSE 73 27* 309* 299* CALCIUM 7.8* -- 7.3* 7.3* MG 2.1 -- 2.0 1.9 PHOS 3.5 -- 2.3* 2.5 ANIONGAP 7 -- 5 5 Diagnostic Studies: CT head 08/12: IMPRESSION: 1. Interval resolution of tiny right subdural hematoma. 2. Bilateral mastoiditis and left otitis media, new compared to 07/26/2024. CXR 08/12: IMPRESSION: Suspect mild pulmonary edema with small pleural effusions. * Renae Squires, RICKY - 08/23/2024 11:05 AM EDT Nutrition Assessment Type and Reason for Visit: Reassess Nutrition Recommendations/Plan: Pt remains on 60 gm CHO Control diet, had no DM diet-related questions or concerns (he states at home they carb-count and have recipe books); pt remains on iHD with Nephrology following closely, did note importance of protein intake daily while on dialysis, need to monitor renal function and labs (like potassium, phosphorous, etc) and need to further adjust diet, would defer fluid allotment to MD; states recently pt has had no troubles at all tolerating PO (chewing/swallowing) however monitor 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 Per MNT protocol will add 2PM snack of cottage cheese and peaches. RD to monitor PO intake, weight, labs, fluid, overall nutritional status & follow up weekly. Malnutrition Assessment: Malnutrition Status: At risk for malnutrition (Comment) (will add high protein snack) Context: Acute Illness Findings of the 6 clinical characteristics of malnutrition: Energy Intake: Mild decrease in energy intake (Comment) (however appears PO intake/appetite improving per chart and confirmed by , ate better yesterday and tolerated almost 100% of her breakfast this morning) Weight Loss: Unable to assess (pt recently started on CRRT --> iHD, ^ protein/nutrition needs, ?new estimated dry weight) Body Fat Loss: Unable to assess Muscle Mass Loss: Unable to assess (not appropriate as pt sleeping/did not awaken or interact whileRD in room, she does appear to be quite thin.. ? loss at baseline such as in voodoo, clavicle, etc (muscle)) Fluid Accumulation: No significant fluid accumulation (per chart) (BUE pitting, BLE non-pitting perflowsheets) Digital Archivist Strength: Not Performed Nutrition Assessment: Pt with previously noted PMH (Type 1 DM, COPD on 4L NC at baseline and CKD IV) initially presented initially in respiratory distress, pt also had AMS which improved on NRB however pt then placed on NIV and transferred to ICU for further management of hypercapnic respiratory failure, MD noting acuteon chronic hypoxic and hypercarbic resp failure 2/2 COPD flaring post COVID-19 infection during previous admission (pt was d/c 08/10, initially presented to [facility] 07/23 w/ acute resp distress and acute delirium, +COVID-19, CT also showed acute right-sided SDH likely incidental finding, pt was noted to have a piror fall); pt able to be weaned off NIV nad initiated on slow prednisone taper(BG had been increasing), ID noting pt stable off abx (found to have pseudomonas and staph aures PNA); Nephrology following d/t ESRD on HD (CRRT initiated for severe acidosis in setting of hemodynamic instability, first had CRRT 07/27, cause of UMA thought to be ATN in setting of infection vs IRGN, now transitioned to iHD), last HD 08/21 removed 2.3L; pt stable for transfer to [facility] after being treated for septic shcok and COPD exacerbation, pt was on baseline 4L O2 but declining to wear BiPAP, morning of 08/20 pt noted to be somnolent and lethargic but arousable, ABG showing respiratory acidosis with CO2 of 72, pt started on BiPAP, repeat ABG showed hypercapnia along with pCO2 of 28 and O2 sats of 64%, pt HDS, labs negative for leukocytosis, CBC unremarkable, pt transferred to ICU for further management; on 08/21 pt off precedex and on NIV, pt reported being hungry and that she would liketo be off NIV mask, 08/22 pt had urinary retention so johnson was placed, UA culture ordered, pt was on NIV at night but off in the morning, looking improved and able to take deeper breaths, importanceof PAP therapy at night to decrease CO2 retention was reinforced; pt ordered 60 gm CHO Control diet; earlier this month when pt admitted she underwent MBSS and was on dysphagia diet/thickened liquids, per previous RD assessment pt was not c/o trouble chewing/swallowing. RD visited pt's room this morning, pt observed in bed sleeping but was present and able to speak on pt's behalf while she slept, states pt ate nearly all of her breakfast this morning and since yesterday she has done better with her meals, confirms 60 gm/meal carb allotment and states at home they do carb counting, they have recipe books at home for diabetes and even able to recall '88 grams of carb' in 'sweet and sour chicken which she loves', states it's easier to manage DM at home w/insulin pump and 'she just adjusts it accordingly', states BG here have been much higher than at home however this is to be expected with hospitaliztion, treatment, etc; pt had no nutrition questionsor concerns for RD; RD did reinforce need for protein while on HD ( states this is new this admit), he states in the past pt has tried ONS and she very much disliked it and states she wouldn'tdrink it here, states trial of high protein snack (cottage cheese and fruit) would be better; states pt also w/ constipation, has received miralax (yesterday and today) and hopeful this helps, RD also encouraged fiber intake and fluid intake to promote BM. Nutrition Related Findings: pos I/O (2.2L); +BS, last BM 08/18; No edema indicated; A&Ox3; medications reviewed; labs: Na (130), SCr (3.39), BG (299) Wound Type: (L 4th toe abrasion and ?? PI to coccyx (in chart per RN but not documented by Wound Care)) Current Nutrition Therapies: Adult diet Regular; 4 carb choices (60 gm/meal) Current Oral Intake Average Meal Intake: 76-100% (especially better yesterday and today per ) Average Supplements Intake: None Ordered Anthropometric Measures: Height: 167.6 cm (5' 6) Current Body Weight: 55.4 kg (122 lb 2.2 oz) (08/23 weight per chart; pt's weights here have rangedfrom upwards 135# down to 108# but mostly low 120#s and high 110#s, ? 'new' dry weight) Weight Source: Not Specified Admission Body Weight: 57.2 kg (126 lb) (bedscale 08/12) Usual Body Weight: (no weight history prior to recent admit --> 07/28/24: 134# bedscale, 08/07/24:126# bedscale) [place] Body Weight (lbs) (Calculated): 130 lbs [place] Body Weight (Kg) (Calculated): 59 kg % [place] Body Weight (Calculated): 83.1 % BMI (kg/m2) (Calculated): 19.7 Weight Adjustment For: No Adjustment BMI Categories: Underweight (BMI less than 18.5) Nutrition Interventions: Nutrition Education/Counseling: Education declined Coordination of Nutrition Care: Continue to monitor while inpatient Plan of Care discussed with: Goals: Previous Goal Met: Progressing toward Goal(s) Goals: PO intake 75% or greater, by next RD assessment Nutrition Monitoring and Evaluation: Behavioral-Environmental Outcomes: None Identified Food/Nutrient Intake Outcomes: Food and Nutrient Intake Physical Signs/Symptoms Outcomes: Biochemical Data, Constipation, GI Status, Fluid Status or Edema,Meal Time Behavior, Nutrition Focused Physical Findings, Weight Discharge Planning: Too soon to determine Renae Squires RD Contact: Secure chat or *[phone] * Shanti Bianchi NP - 08/23/2024 9:26 AM EDT Images from the original note were not included. [facility] Wound Care Progress Note Sandy Deng AGE: 63 y.o. GENDER: female : 1960 Subjective: HISTORY of PRESENT ILLNESS HPI Sandy Deng is a 63 y.o. female who presents for a wound care follow up. HPI: Pt is a 63-year-old female with past medical history significant for COPD on 4L NC at baseline, ESRD on HD, T1DM, and recent admission to ICU for septic shock and subdural hematoma who presents to the ED today in respiratory distress. Wound Care consulted for pressure injury. Patient resting in bed with at bedside. PAST MEDICAL HISTORY Past Medical History: Diagnosis Date COPD (chronic obstructive pulmonary disease) (HCC) Diabetic neuropathy (HCC) Hyperlipidemia Myocardial infarct (HCC) Stage 4 chronic kidney disease (HCC) Type 1 diabetes (HCC) PAST SURGICAL HISTORY Past Surgical History: Procedure Laterality Date CORONARY ANGIOPLASTY WITH STENT PLACEMENT CORONARY ANGIOPLASTY WITH STENT PLACEMENT FAMILY HISTORY No family history on file. SOCIAL HISTORY Social History Tobacco Use Smoking status: Never Smokeless tobacco: Never ALLERGIES No Known Allergies MEDICATIONS No current facility-administered medications on file prior to encounter. Current Outpatient Medications on File Prior to Encounter Medication Sig Dispense Refill albuterol 108 (90 Base) MCG/ACT inhaler inhale 2 puffs by mouth and INTO THE LUNGS every 6 hours ifneeded for cough aspirin 81 MG EC tablet Take 1 tablet by mouth daily. Breztri Aerosphere 160-9-4.8 MCG/ACT aerosol busPIRone (Buspar) 7.5 MG tablet Take 1 tablet by mouth 2 times daily. Cholecalciferol ([employer] Vitamin D3) 25 MCG (1000 UT) chewable tablet Chew. clopidogrel (Plavix) 75 MG tablet Take 1 tablet by mouth daily. Continuous Glucose Sensor (Dexcom G6 Sensor) misc Continuous Glucose Transmitter (Dexcom G6 transmitter) [facility] fluticasone (Flonase) 50 MCG/ACT nasal spray Administer 2 sprays into each nostril daily. Shake gently. Before first use, prime pump. After use, clean tip and replace cap. gabapentin (Neurontin) 100 MG capsule Take 2 capsules (200 mg) by mouth 2 times daily. [] guaiFENesin (Robitussin) 100 MG/5ML liquid Take 10 mL (200 mg) by mouth every 4 hours as needed for cough or congestion for up to 10 days. insulin glargine (Lantus) 100 UNIT/ML injection Inject 3 Units under the skin Nightly. metoprolol tartrate (Lopressor) 50 MG tablet Take 1 tablet (50 mg) by mouth 2 times daily. mirtazapine (Remeron) 7.5 MG tablet Take 1 tablet by mouth Nightly. Prolia 60 MG/ML solution prefilled syringe SPS 15 GM/60ML suspension TAKE 30 GRAMS BY MOUTH EVERYDAY FOR ONE DAY Trelegy Ellipta 200-62.5-25 MCG/ACT aerosol powder REVIEW OF SYSTEMS Pertinent items are noted in HPI. Objective: BP 141/68 (BP Location: Left arm, Patient Position: Lying) Pulse 78 Temp 36.3 C (97.3 F) (Temporal) Resp 16 Ht 1.676 m (5' 6) Wt 55.4 kg (122 lb 2.2 oz) SpO2 100% BMI 19.71 kg/m PHYSICAL EXAM General appearance: in no apparent distress, well developed and well nourished, and in no respiratory distress and acyanotic Skin: warm and dry Pulmonary: Normal effort, no respiratory distress, no cyanosis Left 4th toe: No open areas, no drainage. Resolved (Photo 08/23/24) LABS CBC: Lab Results Component Value Date WBC 4.4 08/23/2024 HGB 8.2 (L) 08/23/2024 HGB 10.2 08/21/2024 HCT 25.5 (L) 08/23/2024 MCV 89.8 08/23/2024 PLT 167 08/23/2024 BMP: Lab Results Component Value Date NA 130 (L) 08/23/2024 K 4.0 08/23/2024 CL 99 08/23/2024 CO2 27 08/23/2024 PHOS 2.5 08/23/2024 BUN 37 (H) 08/23/2024 CREATININE 3.39 (H) 08/23/2024 PT/INR: No results found for: PROTIME, INR Prealbumin: No results found for: PREALBUMIN Albumin:No components found for: LABALBU Sed Rate:No results found for: SEDRATE Micro: No components found for: BC Assessment/Plan: Left 4th toe: Abrasion -Resolved Wound care to sign off service at this time. Please re-consult if services are needed. I personally obtained the cantrell and critical portions of the history and physical exam. I reviewed the labs, imaging studies, and electronic medical record. I reviewed the chart documentation and discussed the patient with treatment team members. I have edited the note to reflect my clinical findingsand my assessment and plan. Please note, the time of this note does not reflect the time I saw thispatient today, but the time of this documentaton. Portions of this note including HPI, ROS, impression/plan, and examination may have been copied forward from admission to today as to provide important historical information essential in contributing to medical decision making. Documentation has been reviewed and edited as necessary to support clinical decision making for today's visit and to reflect my own independent evaluation of this patient. Decision making for today's visit and to reflectmy own independent evaluation of this patient. Cosigned by Alex Duff DO at 08/23/2024 4:45 PM EDT * Khai Espana DO - 08/23/2024 9:00 AM EDT Med Team Progress Note Sandy Marie Deng : 1960(63 y.o.) Date: August 23, 2024 Med Team: Frank Attending: Dr. Denise Chief Complaint: Hypercapnic respiratory failure Subjective: - No acute events overnight. - Currently, the patient states that she is feeling better. She is alert and able to communicate. She states that she is not SOB and has an appetite. She states that she is having some fullness feeling in her lower abdomen. She states that she cannot control her urine and is having difficulty urinating. Patient is saturating well on 5 L NC. PRN meds used in last 24hrs: Review of Systems Constitutional: Negative. HENT: Negative. Eyes: Negative. Respiratory: Negative for shortness of breath and wheezing. Cardiovascular: Negative. Gastrointestinal: Negative. Endocrine: Negative. Genitourinary: Positive for difficulty urinating. Negative for flank pain. Musculoskeletal: Negative. Skin: Negative. Neurological: Negative. Hematological: Negative. Psychiatric/Behavioral: Negative. Scheduled Meds:aspirin, 81 mg, Oral, Daily atorvastatin, 20 mg, Oral, Nightly budesonide, 1 mg, Nebulization, BID busPIRone, 7.5 mg, Oral, BID clopidogrel, 75 mg, Oral, Daily fluticasone, 2 spray, Each Nostril, Daily gabapentin, 200 mg, Oral, BID guaiFENesin, 600 mg, Oral, BID heparin, 5,000 Units, SubCUTAneous, 2 times per day insulin glargine, 5 Units, SubCUTAneous, Nightly insulin lispro, 0-6 Units, SubCUTAneous, TID WC insulin lispro, 6 Units, SubCUTAneous, TID WC ipratropium-albuterol, 3 mL, Nebulization, 4x daily lisinopril, 2.5 mg, Oral, Daily [Held by provider] metoprolol tartrate, 25 mg, Oral, BID [Held by provider] mirtazapine, 7.5 mg, Oral, Nightly [Held by provider] mometasone-formoterol, 2 puff, Inhalation, BID pantoprazole, 40 mg, Oral, Nightly polyethylene glycol (PEG) 3350, 17 g, Oral, Daily [Held by provider] QUEtiapine, 25 mg, Oral, Nightly sodium chloride 0.9%, 5-40 mL, IntraVENous, q8h tamsulosin, 0.4 mg, Oral, Daily [Held by provider] tiotropium, 2 puff, Inhalation, Daily Continuous Infusions: Objective: BP 141/68 (BP Location: Left arm, Patient Position: Lying) Pulse 74 Temp 36.3 C (97.3 F) (Temporal) Resp 16 Ht 5' 6 (1.676 m) Wt 122 lb 2.2 oz (55.4 kg) SpO2 100% BMI 19.71 kg/m Physical Exam Constitutional: Appearance: Normal appearance. She is normal weight. HENT: Head: Normocephalic. Eyes: Pupils: Pupils are equal, round, and reactive to light. Cardiovascular: Rate and Rhythm: Normal rate and regular rhythm. Pulses: Normal pulses. Heart sounds: Normal heart sounds. Pulmonary: Effort: Pulmonary effort is normal. No respiratory distress. Breath sounds: Normal breath sounds. No wheezing, rhonchi or rales. Abdominal: General: Bowel sounds are normal. Palpations: There is no mass. Tenderness: There is abdominal tenderness. There is no right CVA tenderness, left CVA tenderness, guarding or rebound. Hernia: No hernia is present. Comments: Lower quadrent abdominal tenderness with palpation consistent with bladder fullness Musculoskeletal: General: No swelling. Cervical back: Normal range of motion. Skin: General: Skin is warm. Coloration: Skin is not jaundiced. Neurological: General: No focal deficit present. Mental Status: She is alert and oriented to person, place, and time. Psychiatric: Mood and Affect: Mood normal. Behavior: Behavior normal. Select Labs within last 24 hours Auto WBC Date Value Ref Range Status 08/23/2024 4.4 3.6 - 10.7 10*3/uL Final Hemoglobin Date Value Ref Range Status 08/23/2024 8.2 (L) 11.7 - 16.0 g/dL Final Hematocrit Date Value Ref Range Status 08/23/2024 25.5 (L) 35.0 - 47.0 % Final Platelets Date Value Ref Range Status 08/23/2024 167 140 - 440 10*3/uL Final MCV Date Value Ref Range Status 08/23/2024 89.8 77.0 - 99.0 fL Final SODIUM Date Value Ref Range Status 08/23/2024 130 (L) 135 - 145 mmol/L Final POTASSIUM Date Value Ref Range Status 08/23/2024 4.0 3.5 - 5.1 mmol/L Final CHLORIDE Date Value Ref Range Status 08/23/2024 99 98 - 107 mmol/L Final CARBON DIOXIDE Date Value Ref Range Status 08/23/2024 27 22 - 30 mmol/L Final UREA NITROGEN Date Value Ref Range Status 08/23/2024 37 (H) 7 - 17 mg/dL Final CREATININE Date Value Ref Range Status 08/23/2024 3.39 (H) 0.52 - 1.04 mg/dL Final GLUCOSE Date Value Ref Range Status 08/23/2024 299 (H) 70 - 100 mg/dL Final CALCIUM Date Value Ref Range Status 08/23/2024 7.3 (L) 8.4 - 10.4 mg/dL Final MAGNESIUM Date Value Ref Range Status 08/23/2024 1.9 1.6 - 2.3 mg/dL Final PHOSPHORUS Date Value Ref Range Status 08/23/2024 2.5 2.5 - 4.5 mg/dL Final No results found for: AST, ALT, PROT, BILITOT, ALKPHOS, INR, APTT, LIPASE No results found for: CKTOTAL, CKMB, TROPONINI No results found for: PROCAL, CHOL, TRIG, HDL, TSH, VITD25, HGBA1C, VANCOTROUGH Assessment and Plan: COPD Acute on chronic hypoxia and hypercapnic respiratory failure Saturating well on 5 L NC. Goal is between 88-92% Taper Oxygen down to reach goal saturation. Patient educated on importance of BiPAP overnight to help with oxygenation. Continue budesonide and Duonebs. Pulmonary and respiratory therapy following. T1DM with hyperglycemia Glucose is 304 before 10 units of insulin were given on 08/23. Will recheck glucose Pt on 5 lantus, 6 lispro, and LDSSI Will continue current insulin regimen as lantus increased from 3 to 5 U last night UMA on CKD Dialysis is planned for today. Last dialysis was 08/21 with 2.3 L removed. No volume overload noted on physical exam Creatine 3.39 and BUN is 37 Nephrology following, hoping for recovery Patient states that bladder feels full and reports some discomfort. Johnson placed, monitor I/O's Nephrology Consulted Urology Consulted Continue Flomax UTI vs Colonization with Abbi - Urine 08/21 noted to be milky white per nursing, UA showed 500 leukocytes, neg nitrite, >100WBC/RBC, many bacteria, mod yeast, many WBC clumps - Urine Culture showed normal urogenital keven present and 50,000-90,000 abbi albicans. - Hx abbi growth on recent urine cultures x2, no recent antifungal treatment - ID previously recommended against treatment for candiduria given she had johnson, did mention treatment if she has clinical vulvovaginitis Electrolyte Derangements -last Na was 130 with glucose of 299 -K 4, using 4 K bath (was hypokalemic over the weekend) -Ca 7.3 (last alb 2.9), iCa 3.9 repleted yest -phosp 2.5, not on binders Normocytic anemia Hgb is 8.2. Patient has been hospitalized multiple times over the past month which is likely contributing to decreased Hgb. No acute bleed suspected Patient given 2 units of pRBC this admission at ICU. Resolved Problems: Altered Mental status secondary to CO2 narcosis Patient is AAOx3 today. She states that she is feeling better. Glucose is 304 before 10 units of insulin were given. Will keep current insulin regimen since the Lantus was increased to 5 units yesterday. BiPAP at night will most likely help with the AMS due to CO2 narcosis. MRSE positive in 1/2 Blood cultures - likely contamination - aMRSE positive in 1/2 blood cultures- contamination vs infection, collected repeat blood cultures(no growth at 4 days), given one time dose vancomycin at ICU - ID following peripherally: low suspicion for active infection. Not on abx. - Recent hx of septic shock 2/2 CTX-M pseudomonas and staph aureus PNA with COVID-19 infection Chronic Problems and Follow Up Items: Demand Ischemia - Pt has hx of stent and NSTEMI, elevated troponin's looks to be stable around 0.070, discontinued trop trend on 08/13 Chronic mastoiditis - chronic tinnitus, no localized pain- doubt acute infection. No need to treat. If worsens clinically, consider ENT evaluation. - Goals of Care: FULL CODE - DVT Prophylaxis: Heparin - GI Prophylaxis: Protonix daily - Diet: Carb-Control Cosigned by Savita Denise MD at 08/23/2024 3:03 PM EDT Associated attestation - Savita Denise MD - 08/23/2024 3:03 PM EDT Patient seen and evaluated personally by me and discussed with resident team. I have reviewed the cantrell elements of all parts of the encounter. I agree with the assessment, plan and orders as documented See below note w/ any additional comments and/or exceptions: Patient sitting in bed, much more alert than when I last saw her last week. Problems w/ urinary retention, johnson placed. 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 35 (Subsequent [id number]) minutes spent [id number]/floor time coordinating care and/or counseling patient. Savita Denies MD * Janell Booker MD - 08/22/2024 1:42 PM EDT ICU Transfer Checklist Transfer Med Reconciliation (resume home meds if able, convert to PO if able) Complete Antibiotics (name, indication, duration, convert to PO if able) None Steroid (indication, duration, convert to PO if able) Yes,on taper of PO prednisone, 6 more doses (3 days 10mg, 3 days 5mg) Anticipated [place] Medications (ICU initiated) or Dose Changes and Indication No Permanently Discontinued Home Medications and Reason for medication contraindication No Johnson Catheter (please remove if able. Note: place DC order) No Central Line (please remove if able. Note: place DC order) Yes, indication hemodialysis catheter Transfer Discussed with: Resident Dr. Yohan Jarrett; Attending Dr. Savita Denise If additional questions for ICU team within 24 hours of ICU transfer, page MICU team for clarifications. * Zofia Hudson, OT - 08/22/2024 10:57 AM EDT Images from the original note were not included. OCCUPATIONAL THERAPY [facility] Treatment Note Name/MRN: Sandy Deng ([id number]) Date of : 1960 Age: 63 y.o. Room/Bed: T3-304/T3-304 A Discharge Recommendation: IP Rehab Other: Continue to assess pending progress. Prior Level of Function Prior Level of ADL Function: Independent Prior Level of Mobility: Independent; Device: Front wheeled walker Prior Level of Transfers: Independent Pt requires assistance at [facility], information of independent is baseline prior to first admission. Assessment OT treatment completed this date. Patient recently transferred to ICU for respiratory failure; no formal re-eval needed as patient's GOC is appropriate for patient. Patient min A for sit-stand and short distance ambulation. Patient SBA for donning socks. Patient limited by fatigue due to just finishing with PT. Patient is a high fall risk and not safe to discharge home. Recommending IP rehab upondischarge. Subjective Patient sitting in recliner; patient agreeable to therapy treatment. RN ok'd for participation. Pain: Vanegas-Denis Pain Ratin = Hurts a little bit Pain Location: sides from sitting Medical Precautions: No active isolations Proper PPE donned/doffed in accordance with facility standards. Fall Risk: Bunn Fall Risk Score: 100 (High Risk) Precautions/Restrictions: Lines/Drains/Airways: tele, 6 L/min NC Fall Precautions Family/Caregiver Present: spouse Objective ADLs LE Dressing: SBA- donning/doffing socks sitting in recliner; patient able to bring leg all the way up Transfers/Mobility Sit to stand: Min Assist Stand to sit: Min Assist Standing balance: Min Assist Functional mobility: Min Assist Patient min A for sit-stand from recliner. Patient with FAIR standing balance and limited endurance. Patient took several steps at recliner with FWW. Device(s) used: Front wheeled walker Plan Continue acute OT per plan of care. Safety/Education Safety Safety Devices in place: All fall risk precautions in place, call light within reach, left in chair, chair alarm in place, and nurse notified Restraints: No Education Education Given To: patient Education Provided: OT Role, Plan of Care, Precautions, and Discharge Recommendations Education Method: Verbal Barriers to Learning: None Education Outcome: Continued Education Needed AM-PAC AM-PAC Inpatient Daily Activity Raw Score: 19 ADL Inpatient CMS G-Code Modifier: CK Goals Patient Stated Goal: to get better Encounter Problems Encounter Problems (Active) Balance Patient will maintain dynamic standing balance for 5-10 minutes with SBA in order to demonstrate decreased risk of falling. (Progressing) Start: 08/17/24 Expected End: 09/14/24 Bathing Patient will utilize adaptive techniques to bathe body with SBA (Not Addressed) Start: 08/17/24 Expected End: 09/14/24 Dressing Upper Extremities Patient will complete upper body dressing with SBA (Not Addressed) Start: 08/17/24 Expected End: 09/14/24 Dressings Lower Extremities Patient will dress lower body with SBA (Progressing) Start: 08/17/24 Expected End: 09/14/24 Mobility Patient will demonstrate functional ambulation with SBA (Slowly Progressing) Start: 08/17/24 Expected End: 09/14/24 Toileting Patient will complete toileting tasks at standard toilet with SBA. (Not Addressed) Start: 08/17/24 Expected End: 09/14/24 Transfers Patient will complete functional transfer with least restrictive device with SBA in order to prepare for ambulation. (Slowly Progressing) Start: 08/17/24 Expected End: 09/14/24 Patient will perform bed mobility with SBA in order to improve independence and prepare for out of bed mobility. (Not Addressed) Start: 08/17/24 Expected End: 09/14/24 Therapy Time Individual Co-treatment Time In 1029 Time Out 1037 Minutes 8 Timed Code Treatment Minutes: 8 Minutes (self care- 1) Zofia Hudson OT * Maranda Greer, PT - 08/22/2024 10:02 AM EDT Images from the original note were not included. PHYSICAL THERAPY [facility] Re-Evaluation Name/MRN: Sandy Deng ([id number]) Evaluation Date: 08/22/2024 Date of : 1960 Admission Date: 08/12/2024 12:53 PM Age: 63 y.o. Room/Bed: T3-304/T3-304 A Discharge Recommendation: IP Rehab Equipment Needed: No Other: pt owns FWW and straight cane Assessment IMPRESSION: Pt presents with impaired mobility. Noted generalized weakness and decreased activity tolerance. Impaired balance during standing and gait. Pt requires assist with all functional mobilitydue to risk of falling. Unsafe to return home, recommend IP Rehab at discharge. Admitting Diagnosis: Hypercapnia Pt transferred to ICU secondary altered mental status from hypercapnia and hypoxia. Was on NIV, nowon 6 L/min NC. Prognosis: fair Performance Deficits /Impairments: Decreased Functional Mobility, Decreased ADL status, Decreased Strength, Decreased Endurance, and Decreased Balance Decision Making: Medium Complexity Subjective Pt in bed, agree with PT treatment. RN cleared for PT. Pain: Pt denies any current pain. Past Medical History: Past Medical History: Diagnosis Date COPD (chronic obstructive pulmonary disease) (HCC) Diabetic neuropathy (HCC) Hyperlipidemia Myocardial infarct (HCC) Stage 4 chronic kidney disease (HCC) Type 1 diabetes ([facility]) Past Surgical History: Past Surgical History: Procedure Laterality Date CORONARY ANGIOPLASTY WITH STENT PLACEMENT CORONARY ANGIOPLASTY WITH STENT PLACEMENT Admission Diagnosis: Patient Active Problem List Diagnosis Date Noted Anxiety disorder due to medical condition 08/12/2024 Atherosclerosis of coronary artery 08/12/2024 Chest pain 08/12/2024 Chronic constipation 08/12/2024 Cigarette smoker 08/12/2024 Adrian's sign present 08/12/2024 Depressive disorder 08/12/2024 Diabetic polyneuropathy (CMS/HCC) ([facility]) 08/12/2024 Dizziness 08/12/2024 Gastroparesis 08/12/2024 Hypoglycemia 08/12/2024 Injury of kidney 08/12/2024 Intermittent palpitations 08/12/2024 Intractable vomiting with nausea 08/12/2024 Respiratory failure with hypoxia ([facility]) 08/12/2024 Skin lesion of foot 08/12/2024 Hypercapnic respiratory failure ([facility]) 08/12/2024 SDH (subdural hematoma) ([facility]) 07/26/2024 COPD (chronic obstructive pulmonary disease) ([facility]) 07/26/2024 Type 1 diabetes mellitus with kidney complication (HCC) 07/26/2024 Myocardial infarction (HCC) 07/26/2024 Hyperlipidemia 07/26/2024 Diabetic neuropathy associated with type 1 diabetes mellitus (HCC) 07/26/2024 Stage 4 chronic kidney disease (HCC) 07/26/2024 Acute renal failure (HCC) 07/26/2024 Anemia 07/26/2024 Hypocalcemia 07/26/2024 Multiple pulmonary nodules 05/17/2024 Underweight 04/14/2024 Solitary pulmonary nodule 02/06/2024 Wheezing 10/29/2023 History of coronary artery stent placement 02/04/2018 Nicotine dependence 01/08/2017 Hypertension 01/08/2017 Diabetic ketoacidosis (CMS/HCC) (HCC) 12/30/2012 Medical Precautions: No active isolations Proper PPE donned/doffed in accordance with facility standards. Fall Risk: Bunn Fall Risk Score: 75 (High Risk) Precautions/Restrictions: Lines/Drains/Airways: tele, 6 L/min NC Fall Precautions Family/Caregiver Present: spouse Overall Cognitive Status: Exceptions - Initiation: requires cues for some - Sequencing: requires cues for some Overall Orientation Status: Oriented to Place and Oriented to Person Vision: not assessed this session Hearing: normal Social/Functional History Patient admitted from home. Lives With: Spouse Type of Home: single family home Home Layout: Two Level Home, first floor liveable Home Access: Stairs to Enter with Rails (# of stairs: 3) Bathroom Shower/Tub: Walk in Shower Toilet: Standard Home Equipment: front wheeled walker and cane Homemaking Responsibilities: Independent Receives Help From: Spouse Active Aadc Plans Staff Officer: N/A Prior Level of Function Prior Level of ADL Function: Independent Prior Level of Mobility: Independent; Device: None Prior Level of Transfers: Independent Objective Lower Extremity Assessment AROM: WFL PROM: WFL Strength: Lower Extremity Strength Right Left Hip Flexion 3+ 3+ Hip Abduction Hip Extension Hip External Rotation (ER) Hip Internal Rotation (IR) Knee Extension 3+ 3+ Knee Flexion Ankle Dorsiflexion (DF) 3+ 3+ Ankle Plantarflexion (PF) Inversion Eversion Sensation: WFL Balance: Balance During Session: Posture: fair Sitting - Static: Supervision Sitting - Dynamic: Supervision Standing - Static: Min Assist Standing - Dynamic: Mod Assist Bed Mobility: Supine to sit: SBA Scooting: SBA Transfers Sit to stand: Min Assist Stand to sit: Min Assist Bed to chair: Min Assist Ambulation Ambulation 1 Assistive device(s) used: Front wheeled walker Assist level: Min Assist Distance (ft): 3, 5 Quality of gait: step to pattern, uneven step length, slow amanda, path deviations, instability through all phases Standing 2x, with fww. Stood <1 minutes, reported minimal shortness of breath with minimal activity. SpO2 WNL after. Weight shifting for pre-gait. Breathing ex. AROM ex both LE. Outcome Measures AM-PAC How much HELP from another person do you currently need Turning from your back to your side while in a flat bed without using bedrails?: A Little Moving from lying on your back to sitting on the side of a flat bed without using bedrails?: A Little Moving to and from a bed to a chair (including a wheelchair)?: A Little Standing up from a chair using your arms (wheelchair or bedside chair)?: A Little Walking in a hospital room?: A Lot Stair climbing assessed?: No AM-PAC Inpatient Mobility Raw Score (No Stairs) : 14 JH-HLM -HLM Score: Transferred to chair/commode Plan Pt would benefit from skilled acute PT services to address Strengthening, Gait Training, Balance Training, Functional Mobility Training, and Endurance Training. Frequency: 3x/week for 4 weeks Barriers: Lower extremity weakness, Decreased endurance, and Long standing deficits Safety/Education Safety Safety Devices in place: call light within reach, left in chair, chair alarm in place, gait belt, nurse notified, and 6 L/min NC, spouse at bedside Restraints: No Education Education Given To: patient Education Provided: PT Role, PT Goals, and Plan of Care Education Method: Verbal Barriers to Learning: Cognition Education Outcome: Verbalized Understanding and Continued Education Needed Goals Patient Stated Goal: To get stronger Encounter Problems Encounter Problems (Active) Balance Patient will maintain dynamic standing balance for 5 minutes with SBA in order to demonstrate decreased risk of falling. (Progressing) Start: 08/17/24 Expected End: 09/19/24 Patient will maintain dynamic sitting balance for 5 minutes with modified independence in order to demonstrate improved postural control and prepare for out of bed mobility. (Not Addressed) Start: 08/17/24 Expected End: 09/19/24 Mobility Patient will ambulate 50 feet with min assist and rolling walker in order to improve safety and independence with mobility. (Progressing) Start: 08/17/24 Expected End: 09/19/24 Patient will ascend and descend 5 stairs with least restrictive device and min assist in order to safely negotiate home. (Not Addressed) Start: 08/17/24 Expected End: 09/19/24 Transfers Patient will perform bed mobility with supervision in order to improve independence and prepare forout of bed mobility. (Progressing) Start: 08/17/24 Expected End: 09/19/24 Patient will complete functional transfer with rolling walker with SBA in order to prepare for ambulation. (Progressing) Start: 08/17/24 Expected End: 09/19/24 Therapy Time Individual Co-treatment Time In 0925 Time Out 0948 Minutes 23 Timed Code Treatment Minutes: 23 Minutes (FA, Re-Eval) Maranda Greer PT Patient's Physical Therapy Plan of Care supervision is transferred to a [facility] Physical Therapist. Goals and/or treatment plan was established in collaboration with patient/family/other representatives. * Janell Booker MD - 08/22/2024 5:22 AM EDT ICU Progress Note Name: Sandy Deng : 1960(63 y.o.) Date: 08/22/24 Team: MICU Attending: Dr. Adames Subjective: Hospital Summary: 63-year-old female with PMH of significant COPD, baseline on 4 L nasal cannula, type 1 diabetes mellitus, ESRD on hemodialysis, was recently discharged from the ICU after being treated for septic shock and COPD exacerbation. Patient was on the floor, remained hemodynamically stable, and was on baseline 4 L oxygen. Since patient was transferred out of ICU, declined to wear BiPAP.Patient was somnolent and lethargic but arousable with painful sternal rub. ABG showed respiratory acidosis with a CO2 of 72. Patient was started on BiPAP, repeat ABG after 1 hour of BiPAP showed hypercapnia along with pCO2 of 38 and O2 sats of 64%. Patient was hemodynamically stable. Lab work was negative for any leukocytosis, CBC was unremarkable. Chest x-ray from showed deviation of the trachea to the right side but no acute infiltrative process. Considering patient's altered mental status from hypercapnia and hypoxia, patient was transferred to ICU for further management. ABG's remained acidotic and hypercapnic, slowly improving with NIV therapy. Interval Events: No acute events overnight. Pt did have urinary retention, johnson was placed and nursing noted milky urine, UA with culture ordered. Pt on NIV overnight. This morning pt sitting up in bed, on 6L NC, eating breakfast. Pt looked much improved overall, able to take deeper breaths. Pt said she feels good, is still congested. Discussed importance of using PAP therapy at night to decrease CO2 retention. Scheduled Meds: aspirin, 81 mg, Oral, Daily atorvastatin, 20 mg, Oral, Nightly budesonide, 1 mg, Nebulization, BID busPIRone, 7.5 mg, Oral, BID clopidogrel, 75 mg, Oral, Daily fluticasone, 2 spray, Each Nostril, Daily gabapentin, 200 mg, Oral, BID guaiFENesin, 600 mg, Oral, BID heparin, 5,000 Units, SubCUTAneous, 2 times per day insulin glargine, 3 Units, SubCUTAneous, Nightly insulin lispro, 0-6 Units, SubCUTAneous, TID WC insulin lispro, 6 Units, SubCUTAneous, TID WC ipratropium-albuterol, 3 mL, Nebulization, 4x daily lisinopril, 2.5 mg, Oral, Daily [Held by provider] metoprolol tartrate, 25 mg, Oral, BID [Held by provider] mirtazapine, 7.5 mg, Oral, Nightly [Held by provider] mometasone-formoterol, 2 puff, Inhalation, BID pantoprazole, 40 mg, Oral, Nightly polyethylene glycol (PEG) 3350, 17 g, Oral, Daily predniSONE, 20 mg, Oral, Daily Followed by [START ON 08/23/2024] predniSONE, 10 mg, Oral, Daily Followed by [START ON 08/26/2024] predniSONE, 5 mg, Oral, Daily [Held by provider] QUEtiapine, 25 mg, Oral, Nightly sodium chloride 0.9%, 5-40 mL, IntraVENous, q8h [Held by provider] tiotropium, 2 puff, Inhalation, Daily Continuous Infusions: none Objective: Last Vitals: BP MAP 126/53 (08/22/24407) 73 (08/22/24407) Arterial BP MAP (na) (08/13/24 0632) Temp 37 C (98.6 F) (08/22/24407) Pulse 76 (08/22/24407) Resp 16 (08/22/24407) SpO2 100 % (08/22/24407) Weight 55.2 kg (121 lb 11.1 oz) (08/21/24399) BMI Body mass index is 19.64 kg/m . I/O: 08/21 0700 - 08/22 0659 In: 1100 [P.O.:400; I.V.:200] Out: 1040 [Urine:1040] Ventilator: Resp Rate (Set): 16 FiO2 (%): 30 % Inspiratory Time (sec): 0.9 sec Oxygen Delivery: O2 Flow Rate (L/min): 6 L/min Invasive Lines / Tubes / Drains: Peripheral IV 08/12/24 Right Antecubital (Active) Number of days: 9 Peripheral IV 08/13/24 Anterior;Right Forearm (Active) Number of days: 9 Urethral Catheter Straight-tip (Active) Number of days: 0 Hemodialysis Cath Double Lumen 08/12/24 Right Tunneled catheter Internal jugular (Active) Number of days: 9 Central Line Indication: Hemodialysis Johnson Indications: Acute urinary retention or urinary obstruction Restraints: NA - patient is not restrained. Wounds: Wound/Incision 08/12/24 Other (comment) Toe - fourth Anterior;Left (Active) Date First Assessed/Time First Assessed: 08/12/241199 Present on Original Admission: Yes Primary Wound Type: (c) Other (comment) Location: Toe - fourth Wound Location Orientation: Anterior;Left Wound/Incision 08/18/24 Pressure Injury Coccyx (Active) Date First Assessed/Time First Assessed: 08/18/242009 Present on Original Admission: No Primary Wound Type: Pressure Injury Location: Coccyx Pressure Injury Stage: Stage 2 Constitutional: General Appearance []WDWN []Obese []Cachectic [x]Thin []Ill Eyes: Inspection of Pupils/Irises Pupils round and react: [x]Yes []No Sclera: []Icteric [x]Non-Icteric Inspection of Conjunctiva/Lids Conjunctiva: []Injected [x]Non-Injected Lids: [x]Intact []Lesion Present ENT/Mouth: External Inspection of ears/nose [x] Normal [] Scar/Lesion/Mass Inspection of teeth/lips/gums Dentition: [][place] Teeth []Dentures Lips/Gums: [x]Intact []Lesion Present Mucosa: [x][place]inson []Moist []Dry Neck: External Appearance Overall Appearance: [x]Normal []Lesion/Mass/Crepitus Present Trachea midline: []Yes (Pt eating upon exam) []No Thyroid []Normal []Enlarged []Tender []Mass []Absent Respiratory: Respiratory effort []Labored [x]Non-Labored [] Mechanically-Ventilated Auscultation []Clear [x]Crackles(noted on inspiration of bilateral upper lobes) []Wheezes []Rhonchi Cardiovascular: Auscultation Rate: [x]Regular []Irregular []Tachycardia []Bradycardia Rhythm: [x]Regular []Irregular Murmur: []Present [x]Absent Extremities Peripheral Edema: []Present [x]Absent Varicosities: []Present [x]Absent Gastrointestinal: Abdomen Palpation: [x]Soft []Firm []Tender [x]Non-Tender []Distended [x]Non-distended Mass: []Present [x]Absent Bowel Sounds: [x]Present []Absent Hernia: []Present [x]Absent Liver/Spleen: []Hepatosplenomegaly [x]Organomegaly Absent Musculoskeletal: Inspection of Digits and Nails Cyanosis: []Present [x]Absent Clubbing: []Present [x]Absent Ischemia: []Present [x]Absent Infection: []Present [x]Absent Extremities ROCHE Equally: Except ([]RUE []RLE []LUE []LLE) Strength/Tone: Intact and Normal ([]RUE []RLE []LUE []LLE) Skin: Inspection []Normal []Rash [x]Lesion (left 4 toe, wound care following) []Ulcer Palpation [x]Warm []Cool [x]Dry []Clammy []Nodules []Induration []Skin-tightening Cap-Refill: [] <3 sec [] >3 seconds (delayed) Neurologic: GCS EYE: 4 - Opens spontaneously GCS MOTOR: 6 - Obeys commands for movement GCS VERBAL: 5 - Oriented to person, place, time Total GCS: 15 [] Sensation grossly intact Psych: Mental Status Alert: [x]Yes [] No Oriented: []x0 []X1 []X2 [x]x3 Mood/Affect []Normal []Flat []Agitated []Depressed []Anxious [x]Calm []Sedated [x]NAD Select Labs within last 24 hours- BMP: Recent Labs 08/19/24 0550 08/20/24 0522 08/21/24 0314 NA 126* 129* 133* K 4.4 4.0 3.2* CL 95* 97* 99 CO2 28 24 27 BUN 28* 41* 47* CREATININE 2.98* 3.58* 4.52* CALCIUM 7.4* 7.8* 7.8* MG 2.0 2.0 2.1 PHOS 3.8 4.1 3.5 LFTs: Recent Labs 08/21/24 2219 BILIRUBINU Negative Glucose: Recent Labs 08/19/24 0550 08/19/24 0730 08/19/24 0806 08/19/24 0917 08/20/24 0522 08/20/24 0736 08/21/24 0314 08/21/24 0945 08/21/24 0946 08/21/24 1005 08/21/24 1021 08/21/24 1143 08/21/24 1334 08/21/24 1556 08/21/24 1708 08/21/24 2025 GLUCOSE 626* -- 653* -- 150* -- 73 -- 27* -- -- -- -- -- -- -- POCGLU -- < > -- < > -- < > -- <50* -- 166* 128* 106* 103* 110* 123* 228* BHYDRXBUT 7.01* -- -- -- -- -- -- -- -- -- -- -- -- -- -- -- < > = values in this interval not displayed. Procal: No results for input(s): PROCAL in the last 72 hours. CBC: Recent Labs 08/19/24 0550 08/20/24 0522 08/20/24 1024 08/21/24 0314 08/21/24 0825 08/21/24 1432 WBC 4.0 5.8 -- 6.2 -- -- HGB 9.3* 9.9* < > 9.9* 9.8 10.2 HCT 29.5* 30.5* -- 30.6* -- -- PLT 114* 145 -- 157 -- -- MCV 93.1 90.8 -- 91.3 -- -- RDW 15.6* 15.5* -- 15.9* -- -- < > = values in this interval not displayed. ABGs: Recent Labs 08/20/24 2121 08/21/24 0825 08/21/24 1432 PHART 7.274* 7.286* 7.373 KVK7INC 59.2* 59.5* 51.3* PO2ART 113.3* 88.7 85.9 [id number] 26.8* 27.7* 29.2* [id number] 40% Oxygen CPAP CPAP Lactic Acid: No results for input(s): LACTATE in the last 72 hours. INR: No results for input(s): INR in the last 72 hours. Cardiac Injury Profile: No results for input(s): CKTOTAL, CKMB, TROPONINI in the last 72 hours. Labs in Last 3 months: Lab Results Component Value Date TSH 3.472 07/26/2024 INR 1.0 08/13/2024 Microbiology- Urine Cx: Lab Results Component Value Date URINECX >100,000 CFU/mL Abbi albicans (A) 08/13/2024 Blood Cx: Lab Results Component Value Date BLOODCX No growth at 5 days 08/14/2024 Sputum Cx: Lab Results Component Value Date RESPCULT Rare respiratory keven present. 07/27/2024 RESPCULT Few Staphylococcus aureus (A) 07/27/2024 Gram Stain: Lab Results Component Value Date LABGRAM (A) 07/27/2024 Many Polymorphonuclear leukocytes per low power field LABGRAM Few Epithelial cells per low power field (A) 07/27/2024 LABGRAM Moderate Gram positive cocci (A) 07/27/2024 PNA PCR: Lab Results Component Value Date HUMANMETAPNE Not Detected 08/13/2024 COVID19: No results found for: COVID19 Legionella Ag: Lab Results Component Value Date LEGIONELLAPN Not Detected 07/27/2024 Strep Ag: No results for input(s): STREPPNEUMO in the last 72 hours. Imaging- No recent imaging in past 24hrs Assessment and Plan: Principal Problem: Hypercapnic respiratory failure (HCC) Assessment: Acute metabolic encephalopathy 2/2 to hypercapnia Acute hypoxic and hypercapnic respiratory failure, baseline 4L oxygen, COPD and PAP noncompliance Respiratory acidosis T1DM ESRD on HD (MW) Candiduria Hx CAD, stent placed 7 years ago, on DAPT Recent hx septic shock HTN HLD Plan: Acute respiratory failure/acidosis likely etiology of encephalopathy (improving) Plan for NC (baseline 4L) during day and PAP at night Continue duonebs, pulmicort, and mucinex Continue prednisone taper T1DM: 5 units Lantus nightly, Humalog low dose SS with meals, Humalog 6 units with meals Glucose prior to eating this morning 309, will see how she responds to 6u lispro and LD SS. Pt received 3 units lantus last night, [facility] 3[facility]-> [facility], unable to run yesterday so pt receiving HD today Gabapentin dose currently 200 BID (UTD recommends CrCl < 15, 300mg per day, CrCl 15-29 up to 600mg per day), today CrCl 15.6 as pt received dialysis yesterday, unclear indication Hgb slightly decreased today at 8.6 (down from 9.9), will continue to monitor, Hgb between 7-9 overpast month Abnormal UA: ID following peripherally Last night johnson placed for urine retention, milky white per nursing, UA showed 500 leukocytes, neg nitrite, >100 WBC/RBC, many bacteria, mod yeast, many WBC clumps Hx abbi growth on recent urine cultures x2, no recent antifungal treatment, new urine culture inprocess PE unremarkable, no suprapubic tenderness, pt reports no burning or pain in genital area, denies fevers/chills No leukocytosis on CBC this morning, VSS, will continue to monitor ID previously recommended against treatment for candiduria given she had johnson, did mention treatment if she has clinical vulvovaginitis Remove johnson as pt is mobile, initiate Flomax 0.4mg daily for urinary retention Holding Lopressor, Remeron, Dulera, seroquel, Spriva, will consider re-starting tomorrow as pt is clinically improving Continue daily labs CBC, CMP, Mg, Phos PT/OT to work with PT, will appreciate recommendations GI Prophylaxis: Pantoprazole PO DVT Prophylaxis: Heparin subcutaneous Disposition: Transfer to [facility] Cosigned by Kemar Adames DO at 08/22/2024 3:38 PM EDT Associated attestation - Kemar Adames DO - 08/22/2024 3:38 PM EDT I have personally performed a [id number] diagnostic evaluation on this patient on date of hzguwwi04/20/24. History, labs, imaging studies, and electronic medical record have been reviewed by me. This note documented by the []Critical Care Fellow [x]warehouse incentive selector []TONJA reflects my history, exam, and medical decision making. I have reviewed and agree with the care plan. Changes were made in the orders as necessary. ROS documentation was reviewed and negative unless otherwise stated in HPI. Additional pertinent interval history, ROS, and physical exam findings: AdmitDate = 08/12/2024 LOS: 10 Chief Complaint Patient presents with Altered Mental Status Pt became dizzy this morning and SpO2 was noted to be 80s on RA. Pt was placed on 35% venti mask. Pt is altered. Awakens to voice and follows simple commands ON Event(s): Yes, describe: johnson placed. ETT: No NIV/HHFNC/Salter: No Sedation: No Pressors: No Assessment: Acute on chronic hypercapneic respir failure -- improved Enceph 2/2 elevated CO2 -- improved. H/o PAP nonadherence. CAD T1DM uncontrolled Hyperglycemia Hypoglycemia 2/2 insulin and poor PO intake. -- resolved. ESRD/HD Plan: Continue HS PAP Pt can attempt to remain off of respir PAP while awake. The importance of HS PAP is evidenced by recurrent ICU transfers for change in MS and hypercapnea. Change Lantus 5. Hlog DC johnson Flomax Monitor for retention In my professional opinion this pt remains critically ill based on the aforementioned assessment/plan: No Lifethreatening disease process: No Unstable organ failure: No Active vent mgmt: No Active management of life support system(s): No Disposition: Stable to transfer to floor. Critical Care Time: n/a Or Noncritical Care Time: 25min Total time caring for this patient including direct patient contact, review of data including imaging and labs, discussions with other team members and physicians, excluding procedures. * Karyn Jones MD - 08/21/2024 11:07 AM EDT Images from the original note were not included. Nephrology Progress Note Patient: Sandy Deng Room number: [id number] A Date of Admit: 08/12/2024 LOS: 9 days Referring physician: Savita Denise MD Outpatient X Ray Inspector: Christy Huerta Assessment/Plan: Mrs. Sandy Deng is a 63 year old female with PMH of CKD 4, DM type 1, HTN, CAD, COPD (3L Q0pfvirpsd), initially presenting with resp distress and delirium, Covid positive. Also found to havepseudomonas and staph aures PNA. She was intubated, now extubated. CT head showed a small right SDH. Consulted for UMA on CKD 4 - follows with Dr Christy Huerta ([place]). On review of available labs,Cr has been 2.4-2.8, last (04/26) Cr 2.4 eGFR 20, 24 hr autzztk=3774 mg. On admit, (07/26) Cr 4.56, CRRT initiation for severe acidosis in setting of hemodynamic instability, cause of UMA thought to beATN in settting of infection vs IRGN (complement levels found to be low). Now transitioned to iHD. Renal plan: 1- Oliguric UMA -receiving HD on MWF, unable to run yesterday so HD today -pt has TDC -will continue to monitor for renal recovery, serum creat still rising between tx -watch gabapentin dose, given AMS, consider decreasing or holding 2. Electrolytes -last Na was 133 with glucose of 73 -K 3.2, team ordered Kcl 40 meq IV, just use 2 K bath with HD -Ca 7.8 (alb 2.9) -phosp 3.5 3. Acid-base - bicarb stable at 27 4. BP/volume status: -last BP 146/62 -on lisinopril 2.5 mg daily and metoprolol 25 mg bid (held) 5. Anemia - Hgb 9.9, stable - pRBC needs per primary team 6. ID -off ABs 7. Other: -AMS: work up per primary team -COPD exacerbation: on prednisone taper -dispo: looking for [facility], not ready today Will follow along as directed. Thank you for allowing us to participate in the care of this patient. Karyn Jones MD [facility] ([facility]) Pager [phone] Office phone: [phone] Office fax: [phone] 08/21/2024 Subjective Patient seen this am. She remains lethargic. Team working on glycemic control. Unable to dialyze yesterday - running her HD tx today (still not showing signs of renal recovery) Medications: Scheduled Meds:aspirin, 81 mg, Oral, Daily atorvastatin, 20 mg, Oral, Nightly budesonide, 1 mg, Nebulization, BID busPIRone, 7.5 mg, Oral, BID clopidogrel, 75 mg, Oral, Daily fluticasone, 2 spray, Each Nostril, Daily gabapentin, 200 mg, Oral, BID guaiFENesin, 600 mg, Oral, BID heparin, 5,000 Units, SubCUTAneous, 2 times per day insulin glargine, 3 Units, SubCUTAneous, Nightly insulin lispro, 0-12 Units, SubCUTAneous, TID WC insulin lispro, 6 Units, SubCUTAneous, TID WC ipratropium-albuterol, 3 mL, Nebulization, 4x daily lisinopril, 2.5 mg, Oral, Daily [Held by provider] metoprolol tartrate, 25 mg, Oral, BID [Held by provider] mirtazapine, 7.5 mg, Oral, Nightly [Held by provider] mometasone-formoterol, 2 puff, Inhalation, BID pantoprazole, 40 mg, Oral, Nightly polyethylene glycol (PEG) 3350, 17 g, Oral, Daily potassium chloride, 40 mEq, IntraVENous, Once predniSONE, 20 mg, Oral, Daily Followed by [START ON 08/23/2024] predniSONE, 10 mg, Oral, Daily Followed by [START ON 08/26/2024] predniSONE, 5 mg, Oral, Daily [Held by provider] QUEtiapine, 25 mg, Oral, Nightly [Held by provider] tiotropium, 2 puff, Inhalation, Daily Review of Systems: As above Physical Exam: Vitals: 08/21/24 0900 08/21/24 1000 08/21/24 1010 08/21/24 1049 BP: 109/51 150/55 146/62 BP Location: Patient Position: Pulse: 62 74 69 Resp: 17 14 Temp: 36.9 C (98.4 F) TempSrc: SpO2: 97% 91% Weight: Height: Today's weight: Weight: 55.2 kg (121 lb 11.1 oz) Admission weight: Weight: 57.2 kg (126 lb) Wt Readings from Last 3 Encounters: 08/21/24 55.2 kg (121 lb 11.1 oz) 08/07/24 57.4 kg (126 lb 8.7 oz) Estimated body mass index is 19.64 kg/m as calculated from the following: Height as of this encounter: 1.676 m (5' 6). Weight as of this encounter: 55.2 kg (121 lb 11.1 oz). FIO2 needs: on 3 L NC Physical exam General: lethargic, lying in bed HEENT: Sclera clear, EOMI, MMM, Nose/ears/hearing grossly normal Neck: Supple, trachea midline, no mass Right TDC Chest: Normal excursion Heart: RRR, no rub/heave Lungs: Clear bilaterally, unlabored Abd: Soft, (+) BS, non-tender, non distended Ext: No edema Neuro: No tremor/myoclonus Skin: warm and dry, no rash LABS: Recent Labs 08/19/24 0550 08/20/24 0522 08/20/24 1024 08/20/24 2121 08/21/24 0314 08/21/24 0825 WBC 4.0 5.8 -- -- 6.2 -- HGB 9.3* 9.9* < > 10.3 9.9* 9.8 HCT 29.5* 30.5* -- -- 30.6* -- MCV 93.1 90.8 -- -- 91.3 -- PLT 114* 145 -- -- 157 -- < > = values in this interval not displayed. Recent Labs 08/19/24 0550 08/19/24 0806 08/20/24 0522 08/21/24 0314 08/21/24 0946 NA 126* -- 129* 133* -- K 4.4 -- 4.0 3.2* -- CL 95* -- 97* 99 -- CO2 28 -- 24 27 -- BUN 28* -- 41* 47* -- CREATININE 2.98* -- 3.58* 4.52* -- GLUCOSE 626* 653* 150* 73 27* CALCIUM 7.4* -- 7.8* 7.8* -- MG 2.0 -- 2.0 2.1 -- PHOS 3.8 -- 4.1 3.5 -- ANIONGAP 3 -- 8 7 -- Diagnostic Studies: CT head 08/12: IMPRESSION: 1. Interval resolution of tiny right subdural hematoma. 2. Bilateral mastoiditis and left otitis media, new compared to 07/26/2024. CXR 08/12: IMPRESSION: Suspect mild pulmonary edema with small pleural effusions. * Janell Booker MD - 08/21/2024 6:25 AM EDT ICU Progress Note Name: Sandy Deng : 1960(63 y.o.) Date: 08/21/24 Team: MICU Attending: Dr. Adames Subjective: Hospital Summary: 63-year-old female with PMH of significant COPD, baseline on 4 L nasal cannula, type 1 diabetes mellitus, ESRD on hemodialysis, was recently discharged from the ICU after being treated for septic shock and COPD exacerbation. Patient was on the floor, remained hemodynamically stable, and was on baseline 4 L oxygen. Since patient was transferred out of ICU, declined to wear BiPAP.[place] evaluation patient was somnolent and lethargic but arousable with painful sternal rub. ABG showed respiratory acidosis with a CO2 of 72. Patient was started on BiPAP, repeat ABG after 1 hour ofBiPAP showed hypercapnia along with pCO2 of 38 and O2 sats of 64%. Patient was hemodynamically stable. Lab work was negative for any leukocytosis, CBC was unremarkable. Chest x-ray from yesterday showed deviation of the trachea to the right side but no acute infiltrative process. Considering patient's altered mental status from hypercapnia and hypoxia, patient will be transferred to the ICU for further management. Interval Events: No acute events overnight. Pt off precedex this morning, on NIV. Pt was awake and interactive on exam. She reports she is hungry and would like NIV mask off. Feeling overall well, still feeling chest congestion/tightness, unable to cough with mask on. Scheduled Meds: aspirin, 81 mg, Oral, Daily atorvastatin, 20 mg, Oral, Nightly budesonide, 1 mg, Nebulization, BID busPIRone, 7.5 mg, Oral, BID clopidogrel, 75 mg, Oral, Daily fluticasone, 2 spray, Each Nostril, Daily gabapentin, 200 mg, Oral, BID guaiFENesin, 600 mg, Oral, BID heparin, 5,000 Units, SubCUTAneous, 2 times per day insulin glargine, 8 Units, SubCUTAneous, Nightly insulin lispro, 0-12 Units, SubCUTAneous, TID WC insulin lispro, 6 Units, SubCUTAneous, TID WC ipratropium-albuterol, 3 mL, Nebulization, 4x daily lisinopril, 2.5 mg, Oral, Daily [Held by provider] metoprolol tartrate, 25 mg, Oral, BID [Held by provider] mirtazapine, 7.5 mg, Oral, Nightly [Held by provider] mometasone-formoterol, 2 puff, Inhalation, BID pantoprazole, 40 mg, Oral, Nightly polyethylene glycol (PEG) 3350, 17 g, Oral, Daily predniSONE, 20 mg, Oral, Daily Followed by [START ON 08/23/2024] predniSONE, 10 mg, Oral, Daily Followed by [START ON 08/26/2024] predniSONE, 5 mg, Oral, Daily [Held by provider] QUEtiapine, 25 mg, Oral, Nightly [Held by provider] tiotropium, 2 puff, Inhalation, Daily Continuous Infusions:dexmedeTOMIDine, 0.1-0.7 mcg/kg/hr Objective: Last Vitals: BP MAP 133/54 (08/21/24 0600) 78 (08/21/24 0600) Arterial BP MAP (na) (08/13/24 0632) Temp 36.3 C (97.3 F) (08/21/24 0400) Pulse 58 (08/21/24 0600) Resp 17 (08/21/24 0600) SpO2 100 % (08/21/24 0600) Weight 55.2 kg (121 lb 11.1 oz) (08/21/24 0400) BMI Body mass index is 19.64 kg/m . I/O: No intake/output data recorded. Ventilator: none Oxygen Delivery: O2 Flow Rate (L/min): 3 L/min Invasive Lines / Tubes / Drains: Peripheral IV 08/12/24 Right Antecubital (Active) Number of days: 8 Peripheral IV 08/13/24 Anterior;Right Forearm (Active) Number of days: 8 Hemodialysis Cath Double Lumen 08/12/24 Right Tunneled catheter Internal jugular (Active) Number of days: 8 Central Line Indication: Hemodialysis Johnson Indications: NA - patient does not have a Johnson catheter Restraints: NA - patient is not restrained. Wounds: Wound/Incision 08/12/24 Other (comment) Toe - fourth Anterior;Left (Active) Date First Assessed/Time First Assessed: 08/12/241199 Present on Original Admission: Yes Primary Wound Type: (c) Other (comment) Location: Toe - fourth Wound Location Orientation: Anterior;Left Wound/Incision 08/18/24 Pressure Injury Coccyx (Active) Date First Assessed/Time First Assessed: 08/18/242009 Present on Original Admission: No Primary Wound Type: Pressure Injury Location: Coccyx Pressure Injury Stage: Stage 2 Constitutional: General Appearance []WDWN []Obese []Cachectic [x]Thin []Ill Eyes: Inspection of Pupils/Irises Pupils round and react: [x]Yes []No Sclera: []Icteric [x]Non-Icteric Inspection of Conjunctiva/Lids Conjunctiva: [x]Injected []Non-Injected Lids: [x]Intact []Lesion Present ENT/Mouth: External Inspection of ears/nose [x] Normal [] Scar/Lesion/Mass Inspection of teeth/lips/gums (NIV mask inplace)_ Dentition: [][place] Teeth []Dentures Lips/Gums: []Intact []Lesion Present Mucosa: []Pinson []Moist []Dry Neck: External Appearance Overall Appearance: [x]Normal []Lesion/Mass/Crepitus Present Trachea midline: []Yes []No Thyroid []Normal []Enlarged []Tender []Mass []Absent Respiratory: Respiratory effort []Labored [x]Non-Labored (NIV mask on) [] Mechanically-Ventilated Auscultation []Clear []Crackles []Wheezes [x]Rhonchi (no wheezing appreciated, pt unable to take deep breath, upper airway sounds likely 2/2 congestion) Cardiovascular: Auscultation Rate: [x]Regular []Irregular []Tachycardia []Bradycardia Rhythm: [x]Regular []Irregular Murmur: []Present [x]Absent Extremities Peripheral Edema: []Present [x]Absent Varicosities: []Present [x]Absent Gastrointestinal: Abdomen Palpation: [x]Soft []Firm []Tender [x]Non-Tender []Distended [x]Non-distended Mass: []Present [x]Absent Bowel Sounds: [x]Present []Absent Hernia: []Present [x]Absent Liver/Spleen: []Hepatosplenomegaly [x]Organomegaly Absent Musculoskeletal: Inspection of Digits and Nails Cyanosis: []Present [x]Absent Clubbing: []Present [x]Absent Ischemia: []Present [x]Absent Infection: []Present [x]Absent Extremities ROCHE Equally: Except ([]RUE []RLE []LUE []LLE) Strength/Tone: Intact and Normal ([x]RUE [x]RLE [x]LUE [x]LLE) Skin: Inspection []Normal []Rash [x]Lesion (left 4 toe, wound care following) []Ulcer Palpation [x]Warm []Cool [x]Dry []Clammy []Nodules []Induration []Skin-tightening Cap-Refill: [] <3 sec [] >3 seconds (delayed) Neurologic: GCS EYE: 4 - Opens spontaneously GCS MOTOR: 6 - Obeys commands for movement GCS VERBAL: 5 - Oriented to person, place, time Total GCS: 15 [] Sensation grossly intact Psych: Mental Status Alert: [x]Yes [] No Oriented: []x0 []X1 []X2 [x]x3 Mood/Affect []Normal []Flat []Agitated []Depressed []Anxious []Calm []Sedated [x]NAD Select Labs within last 24 hours- BMP: Recent Labs 08/19/24 0550 08/20/24 0522 08/21/24 0314 NA 126* 129* 133* K 4.4 4.0 3.2* CL 95* 97* 99 CO2 28 24 27 BUN 28* 41* 47* CREATININE 2.98* 3.58* 4.52* CALCIUM 7.4* 7.8* 7.8* MG 2.0 2.0 2.1 PHOS 3.8 4.1 3.5 LFTs:No results for input(s): AST, ALT, PROT, ALBUMIN, BILITOT, BILIRUBINU, ALKPHOS, LIPASE in the last 72 hours. Glucose: Recent Labs 08/19/24 0550 08/19/24 0730 08/19/24 0806 08/19/24 0917 08/19/24 1135 08/19/24 1315 08/19/24 1520 08/19/24 1723 08/19/24 2020 08/20/24 0522 08/20/24 0736 08/20/24 1251 08/20/24 2113 08/21/24 0314 GLUCOSE 626* -- 653* -- -- -- -- -- -- 150* -- -- -- 73 POCGLU -- < > -- < > >450* 414* 268* 162* 118* -- 158* 185* 124* -- BHYDRXBUT 7.01* -- -- -- -- -- -- -- -- -- -- -- -- -- < > = values in this interval not displayed. Procal: No results for input(s): PROCAL in the last 72 hours. CBC: Recent Labs 08/19/24 0550 08/20/24 0522 08/20/24 1024 08/20/24 1558 08/20/24 2121 08/21/24 0314 WBC 4.0 5.8 -- -- -- 6.2 HGB 9.3* 9.9* < > 10.5 10.3 9.9* HCT 29.5* 30.5* -- -- -- 30.6* PLT 114* 145 -- -- -- 157 MCV 93.1 90.8 -- -- -- 91.3 RDW 15.6* 15.5* -- -- -- 15.9* < > = values in this interval not displayed. ABGs: Recent Labs 08/20/24 1250 08/20/24 1558 08/20/24 2121 PHART 7.244* 7.242* 7.274* [id number] 68.4* 67.9* 59.2* PO2ART 36.2* 101.2* 113.3* [id number] 28.9* 28.6* 26.8* [id number] Bi-PAP 40% Oxygen 40% Oxygen Lactic Acid: No results for input(s): LACTATE in the last 72 hours. INR: No results for input(s): INR in the last 72 hours. Cardiac Injury Profile: No results for input(s): CKTOTAL, CKMB, TROPONINI in the last 72 hours. Labs in Last 3 months: Lab Results Component Value Date TSH 3.472 07/26/2024 INR 1.0 08/13/2024 Microbiology- Urine Cx: Lab Results Component Value Date URINECX >100,000 CFU/mL Abbi albicans (A) 08/13/2024 Blood Cx: Lab Results Component Value Date BLOODCX No growth at 5 days 08/14/2024 Sputum Cx: Lab Results Component Value Date RESPCULT Rare respiratory keven present. 07/27/2024 RESPCULT Few Staphylococcus aureus (A) 07/27/2024 Gram Stain: Lab Results Component Value Date LABGRAM (A) 07/27/2024 Many Polymorphonuclear leukocytes per low power field LABGRAM Few Epithelial cells per low power field (A) 07/27/2024 LABGRAM Moderate Gram positive cocci (A) 07/27/2024 PNA PCR: Lab Results Component Value Date HUMANMETAPNE Not Detected 08/13/2024 Legionella Ag: Lab Results Component Value Date LEGIONELLAPN Not Detected 07/27/2024 Imaging- No recent imaging within past 24hrs Assessment and Plan: Principal Problem: Hypercapnic respiratory failure (HCC) Assessment: Acute metabolic encephalopathy 2/2 to hypercapnia Acute hypoxic and hypercapnic respiratory failure, baseline 4L oxygen, COPD and PAP noncompliance Respiratory acidosis T1DM ESRD on HD (MWF) Hx CAD, stent placed 7 years ago, on DAPT Recent hx septic shock HTN HLD Plan: Acute respiratory failure/acidosis likely etiology of encephalopathy (improving) Continue NIV, pt will stay NPO at this time ABG this morning shows slight improvement of respiratory acidosis on NIV (pH 7.286) Will follow up with repeat ABG this afternoon Continue duonebs, pulmicort, and mucinex Continue prednisone taper T1DM: 3 units Lantus nightly, Humalog low dose NPO SS, Humalog 6 units with meals (hold if not eating) Nephrology following, HD on MWF, unable to run yesterday so pt receiving HD today Consider decreasing gabapentin dose (UTD recommends CrCl < 15, 300mg per day) will reassess dosing when pt can take NPO and after HD today Pt not on abx, VSS, will continue to monitor Holding Lopressor, Remeron, Dulera, seroquel, Spriva, will consider re-starting when pt off NIV Continue daily labs CBC, CMP, Mg, Phos GI Prophylaxis: Pantoprazole PO DVT Prophylaxis: Heparin subcutaneous Disposition: Remain in ICU Status Cosigned by Kemar Adames DO at 08/21/2024 1:58 PM EDT Associated attestation - Kemar Adames DO - 08/21/2024 1:58 PM EDT I have personally performed a [id number] diagnostic evaluation on this patient on date of oqecxmr50/19/24. History, labs, imaging studies, and electronic medical record have been reviewed by me. This note documented by the []Critical Care Fellow [x]warehouse incentive selector []TONJA reflects my history, exam, and medical decision making. I have reviewed and agree with the care plan. Changes were made in the orders as necessary. ROS documentation was reviewed and negative unless otherwise stated in HPI. Additional pertinent interval history, ROS, and physical exam findings: AdmitDate = 08/12/2024 LOS: 9 Chief Complaint Patient presents with Altered Mental Status Pt became dizzy this morning and SpO2 was noted to be 80s on RA. Pt was placed on 35% venti mask. Pt is altered. Awakens to voice and follows simple commands ON Event(s): No Fever: No Vital stable: Yes Stool recorded: No SBT/SAT today: N/A Use of PRNs: No ETT: No NIV/HHFNC/Salter: Yes Sedation: No Pressors: No Assessment: Acute on chronic hypercapneic respir failure Enceph 2/2 elevated CO2 H/o PAP nonadherence. CAD T1DM uncontrolled Hypoglycemia 2/2 insulin and poor PO intake. ESRD/HD Plan: Continue NIV for morning. Repeat ABG this afternoon If awake, appears near baseline, and has better gas can trial off NIV. Pt needs to use PAP at HS. Hypoglycemia treated this AM. Decrease lantus to 3. If lows recur will start low rate of D10. HD per nephro. In my professional opinion this pt remains critically ill based on the aforementioned assessment/plan: Yes Lifethreatening disease process: No; remains on NIV. Unstable organ failure: No Active vent mgmt: No Active management of life support system(s): No Disposition: Unchanged. Critical Care Time: 35min Or Noncritical Care Time: n/a Total time caring for this patient including direct patient contact, review of data including imaging and labs, discussions with other team members and physicians, excluding procedures. * GUILLERMO Noe - 08/20/2024 10:52 AM EDT OCCUPATIONAL THERAPY Attempted OT services, pt on hold due to pt unable to stay aroused/limited responsiveness. Will reattempt when pt is alert/able to participate. Cosigned by Yoana Santana OT at 08/20/2024 2:11 PM EDT * Joni Monson MD - 08/20/2024 10:50 AM EDT Images from the original note were not included. Nephrology Progress Note Patient: Sandy Deng Room number: [id number] A Date of Admit: 08/12/2024 LOS: 8 days Referring physician: Savita Denise MD Outpatient X Ray Inspector: Christy Huerta Assessment/Plan: Mrs. Sandy Deng is a 63 year old female with PMH of CKD 4, DM type 1, HTN, CAD, COPD (3L [id number]), initially presenting with resp distress and delirium, Covid positive. Also found to havepseudomonas and staph aures PNA. She was intubated, now extubated. CT head showed a small right SDH. Consulted for UMA on CKD 4 - follows with Dr Christy Huerta ([place]). On review of available labs,Cr has been 2.4-2.8, last (04/26) Cr 2.4 eGFR 20, 24 hr [id number] mg. On admit, (07/26) Cr 4.56, CRRT initiation for severe acidosis in setting of hemodynamic instability, cause of UMA thought to beATN in setttin of infection vs IRGN (complement levels found to be low). Now transitioned to iHD. Renal plan: 1- Oliguric UMA -receiving HD on MWF, due for HD today -pt has TDC -will continue to monitor for renal recovery, serum creat still rising between tx -watch gabapentin dose, given AMS, consider decreasing or holding 2. Electrolytes -last Na was 129 with glucose of 150 -K 4, using 3 K bath -Ca 7.8 (alb 2.9), iCa 4.3 -phosp 4.1 3. Acid-base - bicarb stable at 24 4. BP/volume status: -last BP 135/58 -on lisinopril 2.5 mg daily and metoprolol 25 mg bid -she tolerated 3 L off on Friday 5. Anemia - Hgb 9.9 - pRBC needs per primary team 6. ID -off ABs 7. Other: -AMS: work up per primary team. ABG obtained. -COPD exacerbation: on prednisone taper -dispo: looking for [facility], not ready today Will follow along as directed. Thank you for allowing us to participate in the care of this patient. Case discussed with primary team. Dr. Jones will be covering this weekend. Joni Monson MD [facility] ([facility]) Office phone: [phone] Office fax: [phone] 08/20/2024 Subjective Patient seen this am, spouse at bedside. She remains lethargic. Team working on glycemic control yesterday. Medications: Scheduled Meds:aspirin, 81 mg, Oral, Daily atorvastatin, 20 mg, Oral, Nightly busPIRone, 7.5 mg, Oral, BID clopidogrel, 75 mg, Oral, Daily fluticasone, 2 spray, Each Nostril, Daily gabapentin, 200 mg, Oral, BID guaiFENesin, 600 mg, Oral, BID heparin, 5,000 Units, SubCUTAneous, 2 times per day insulin glargine, 8 Units, SubCUTAneous, Nightly insulin lispro, 0-12 Units, SubCUTAneous, TID WC insulin lispro, 6 Units, SubCUTAneous, TID WC lisinopril, 2.5 mg, Oral, Daily metoprolol tartrate, 25 mg, Oral, BID mirtazapine, 7.5 mg, Oral, Nightly mometasone-formoterol, 2 puff, Inhalation, BID pantoprazole, 40 mg, Oral, Nightly polyethylene glycol (PEG) 3350, 17 g, Oral, Daily predniSONE, 20 mg, Oral, Daily Followed by [START ON 08/23/2024] predniSONE, 10 mg, Oral, Daily Followed by [START ON 08/26/2024] predniSONE, 5 mg, Oral, Daily QUEtiapine, 25 mg, Oral, Nightly tiotropium, 2 puff, Inhalation, Daily Review of Systems: As above Physical Exam: Vitals: 08/19/24 1100 08/19/24 1644 08/20/24 0525 08/20/24 0842 BP: 114/53 123/50 135/58 BP Location: Left arm Left arm Right arm Patient Position: Sitting Lying Lying Pulse: 70 64 65 Resp: 18 18 18 Temp: (!) 35.3 C (95.5 F) 36.3 C (97.4 F) 36.5 C (97.7 F) TempSrc: Temporal Temporal Temporal SpO2: 100% 92% 98% Weight: Height: Today's weight: Weight: 49.2 kg (108 lb 7.5 oz) Admission weight: Weight: 57.2 kg (126 lb) Wt Readings from Last 3 Encounters: 08/18/24 49.2 kg (108 lb 7.5 oz) 08/07/24 57.4 kg (126 lb 8.7 oz) Estimated body mass index is 17.51 kg/m as calculated from the following: Height as of this encounter: 1.676 m (5' 6). Weight as of this encounter: 49.2 kg (108 lb 7.5 oz). FIO2 needs: on 3 L NC Physical exam General: lethargic, lying in bed HEENT: Sclera clear, EOMI, MMM, Nose/ears/hearing grossly normal Neck: Supple, trachea midline, no mass Right TDC Chest: Normal excursion Heart: RRR, no rub/heave Lungs: Clear bilaterally, unlabored Abd: Soft, (+) BS, non-tender, non distended Ext: No edema Neuro: No tremor/myoclonus Skin: warm and dry, no rash LABS: Recent Labs 08/18/2441608/19/24 0550 08/20/24 0522 08/20/24 1024 WBC 4.5 4.0 5.8 -- HGB 9.2* 9.3* 9.9* 10.1 HCT 29.1* 29.5* 30.5* -- MCV 92.1 93.1 90.8 -- PLT 111* 114* 145 -- Recent Labs 08/18/247 08/19/24 0550 08/19/24 0806 08/20/24 0522 NA 130* 126* -- 129* K 3.8 4.4 -- 4.0 CL 99 95* -- 97* CO2 27 28 -- 24 BUN 35* 28* -- 41* CREATININE 3.57* 2.98* -- 3.58* GLUCOSE 281* 626* 653* 150* CALCIUM 7.9* 7.4* -- 7.8* MG 2.0 2.0 -- 2.0 PHOS 3.4 3.8 -- 4.1 ANIONGAP 4 3 -- 8 Diagnostic Studies: CT head 08/12: IMPRESSION: 1. Interval resolution of tiny right subdural hematoma. 2. Bilateral mastoiditis and left otitis media, new compared to 07/26/2024. CXR 08/12: IMPRESSION: Suspect mild pulmonary edema with small pleural effusions. * Sherri Domingo, SYED - SUPERVISOR WHIPPED TOPPING - 08/20/2024 8:33 AM EDT Images from the original note were not included. [facility] Wound Care Progress Note Sandy Deng AGE: 63 y.o. GENDER: female : 1960 Subjective: HISTORY of PRESENT ILLNESS HPI Sandy Deng is a 63 y.o. female who presents for a wound care follow up. HPI: Pt is a 63-year-old female with past medical history significant for COPD on 4L NC at baseline, ESRD on HD, T1DM, and recent admission to ICU for septic shock and subdural hematoma who presents to the ED today in respiratory distress. Wound Care consulted for pressure injury. Patient resting in bed. Treatment per this service at time of visit. Denies any needs. PAST MEDICAL HISTORY Past Medical History: Diagnosis Date COPD (chronic obstructive pulmonary disease) (HCC) Diabetic neuropathy (HCC) Hyperlipidemia Myocardial infarct (HCC) Stage 4 chronic kidney disease (HCC) Type 1 diabetes (HCC) PAST SURGICAL HISTORY Past Surgical History: Procedure Laterality Date CORONARY ANGIOPLASTY WITH STENT PLACEMENT CORONARY ANGIOPLASTY WITH STENT PLACEMENT FAMILY HISTORY No family history on file. SOCIAL HISTORY Social History Tobacco Use Smoking status: Never Smokeless tobacco: Never ALLERGIES No Known Allergies MEDICATIONS No current facility-administered medications on file prior to encounter. Current Outpatient Medications on File Prior to Encounter Medication Sig Dispense Refill albuterol 108 (90 Base) MCG/ACT inhaler inhale 2 puffs by mouth and INTO THE LUNGS every 6 hours ifneeded for cough aspirin 81 MG EC tablet Take 1 tablet by mouth daily. Breztri Aerosphere 160-9-4.8 MCG/ACT aerosol busPIRone (Buspar) 7.5 MG tablet Take 1 tablet by mouth 2 times daily. Cholecalciferol ([facility] Vitamin D3) 25 MCG (1000 UT) chewable tablet Chew. clopidogrel (Plavix) 75 MG tablet Take 1 tablet by mouth daily. Continuous Glucose Sensor (Dexcom G6 Sensor) misc Continuous Glucose Transmitter (Dexcom G6 transmitter) misc fluticasone (Flonase) 50 MCG/ACT nasal spray Administer 2 sprays into each nostril daily. Shake gently. Before first use, prime pump. After use, clean tip and replace cap. gabapentin (Neurontin) 100 MG capsule Take 2 capsules (200 mg) by mouth 2 times daily. guaiFENesin (Robitussin) 100 MG/5ML liquid Take 10 mL (200 mg) by mouth every 4 hours as needed forcough or congestion for up to 10 days. insulin glargine (Lantus) 100 UNIT/ML injection Inject 3 Units under the skin Nightly. metoprolol tartrate (Lopressor) 50 MG tablet Take 1 tablet (50 mg) by mouth 2 times daily. mirtazapine (Remeron) 7.5 MG tablet Take 1 tablet by mouth Nightly. Prolia 60 MG/ML solution prefilled syringe SPS 15 GM/60ML suspension TAKE 30 GRAMS BY MOUTH EVERYDAY FOR ONE DAY Trelegy Ellipta 200-62.5-25 MCG/ACT aerosol powder REVIEW OF SYSTEMS Pertinent items are noted in HPI. Objective: BP 135/58 (BP Location: Right arm, Patient Position: Lying) Pulse 60 Temp 36.5 C (97.7 F) (Temporal) Resp 18 Ht 1.676 m (5' 6) Wt 49.2 kg (108 lb 7.5 oz) SpO2 99% BMI 17.51 kg/m PHYSICAL EXAM General appearance: in no apparent distress, well developed and well nourished, and in no respiratory distress and acyanotic Skin: warm and dry Pulmonary: Normal effort, no respiratory distress, no cyanosis Left 4th toe: 0.5 x 0.3 x UTD cm. Small intact dry scab present with no drainage noted, no odor or SOI. [place] wound dry with improving ecchymosis present. Stable (Photo 08/16/24) LABS CBC: Lab Results Component Value Date WBC 5.8 08/20/2024 HGB 10.1 08/20/2024 HCT 30.5 (L) 08/20/2024 MCV 90.8 08/20/2024 PLT 145 08/20/2024 BMP: Lab Results Component Value Date NA 129 (L) 08/20/2024 K 4.0 08/20/2024 CL 97 (L) 08/20/2024 CO2 24 08/20/2024 PHOS 4.1 08/20/2024 BUN 41 (H) 08/20/2024 CREATININE 3.58 (H) 08/20/2024 PT/INR: No results found for: PROTIME, INR Prealbumin: No results found for: PREALBUMIN Albumin:No components found for: LABALBU Sed Rate:No results found for: SEDRATE Micro: No components found for: BC Assessment/Plan: Left 4th toe: Abrasion -cleanse with NS, apply skin prep barrier wipe daily and PRN, leave X RAY INSPECTOR 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 Any questions or concerns please secure chat [facility] wound/ostomy. Thank you for the consult! I personally obtained the cantrell and critical portions of the history and physical exam. I reviewed the labs, imaging studies, and electronic medical record. I reviewed the chart documentation and discussed the patient with treatment team members. I have edited the note to reflect my clinical findingsand my assessment and plan. Please note, the time of this note does not reflect the time I saw thispatient today, but the time of this documentaton. Portions of this note including HPI, ROS, impression/plan, and examination may have been copied forward from admission to today as to provide important historical information essential in contributing to medical decision making. Documentation has been reviewed and edited as necessary to support clinical decision making for today's visit and to reflect my own independent evaluation of this patient. Decision making for today's visit and to reflectmy own independent evaluation of this patient. Cosigned by Alex Duff DO at 08/23/2024 4:45 PM EDT * Pascual Atkinson MD - 08/20/2024 8:08 AM EDT PULMONOLOGY CONSULT PROGRESS NOTE 08/20/2024 Hospital LOS: LOS: 8 days Chief Complaint: Acute on chronic hypoxic and hypercapnic respiratory failure I saw and evaluated the patient, participating in the cantrell portions of the service. I reviewed the fellow's note and agree with her findings and plan as below. Assessment: 1 acute and chronic hypoxic and hypercapnic respiratory failure 2 COPD and bronchiectasis 3 recent COVID-19 4 recent PNA, known aspiration issues 5 Hx of CAD 6 UMA/CKD currently on HD 7 right SDH 8 encephalopathy Plan: 1 difficult to arouse and refusing BiPAP. Check ABG 2 O2 at baseline 3 prednisone 4 aerosols 5 aspiration precautions Pascual Atkinson MD Subjective/Interval History: Patient was seen and examined at bedside, remains somnolent and lethargic. Was arousable with painful stimuli. ABG ordered. Previously patient was not agreeable to BiPAP. Discussed at length for importance of bipap yesterday when patient's partner was at bedside. He mention previously multiple times that right BiPAP but patient kept refusing. A pertinent review of systems was performed and was otherwise non-contributory except as detailed in Subjective section above. Assessment and Plan: Acute hypoxic and hypercapnic respiratory failure. Currently at baseline. Back to 4 L baseline oxygen. Hypercapnia in the setting of COPD and PAP therapy noncompliance. Respiratory acidosis Acute exacerbation of COPD, imaging finding showed centrilobular emphysema. No PFT on file. Recent history of septic shock with Staph aureus and multidrug-resistant Pseudomonas infection. MRSE bacteremia, 1 out of 2 bottles. Likely contaminated. Type 1 diabetes mellitus with hyperglycemia ESRD Pancytopenia. Candiduria Advised to wear BiPAP. Will follow repeat ABG in 1 hour. If patient's ABG does not improved then ICU team will be contacted for continuous BiPAP/NIV. Continue prednisone taper. Infectious disease on board. Will follow infectious disease recommendation. Continue breathing treatment with Dulera and Spiriva, DuoNeb as needed. Pulmonary team will continue to follow. Portions of the information within this encounter were entered using an electronic dictation system. Best attempts were made to edit/proofread the information prior to note completion. Despite the review of information, some errors may remain. If there are questions related to the information contained within the note please contact the signing physician directly. Vitals- BP 135/58 (BP Location: Right arm, Patient Position: Lying) Pulse 60 Temp 36.5 C (97.7 F) (Temporal) Resp 18 Ht 1.676 m (5' 6) Wt 49.2 kg (108 lb 7.5 oz) SpO2 99% BMI 17.51 kg/m Tmax: Temp (24hrs), Av.1 C (96.9 F), Min:35.3 C (95.5 F), Max:36.5 C (97.7 F) Hemodynamics: Cuff: Systolic (24hrs), Av , Min:114 , Max:135 /Diastolic (24hrs), Av, Min:50, Max:58 Cuff MAP:MAP (mmHg) Av.4 Min: 52 Max: 108 P: Pulse Av Min: 60 Max: 65 Observed RR: Resp Av.3 Min: 18 Max: 19 Observed O2 sats: SpO2 Av.7 % Min: 77 % Max: 100 % No intake or output data in the 24 hours ending 08/20/24 1149 Physical exam- Physical Exam Cardiovascular: Rate and Rhythm: Normal rate. Pulses: Normal pulses. Pulmonary: Effort: Pulmonary effort is normal. No respiratory distress. Breath sounds: Normal breath sounds. No stridor. No wheezing, rhonchi or rales. Chest: Chest wall: No tenderness. Abdominal: General: Abdomen is flat. Palpations: Abdomen is soft. Tenderness: There is no abdominal tenderness. Neurological: General: No focal deficit present. Mental Status: She is alert. Data: [facility] within last 24 hours- BMP: Recent Labs 08/18/2441608/19/24 0550 08/20/24 0522 NA 130* 126* 129* K 3.8 4.4 4.0 CL 99 95* 97* CO2 27 28 24 BUN 35* 28* 41* CREATININE 3.57* 2.98* 3.58* CALCIUM 7.9* 7.4* 7.8* MG 2.0 2.0 2.0 PHOS 3.4 3.8 4.1 LFTs:No results for input(s): AST, ALT, PROT, ALBUMIN, BILITOT, BILIRUBINU, ALKPHOS, LIPASE in the last 72 hours. Glucose: Recent Labs 08/18/24 0417 08/18/24 0954 08/19/24 0550 08/19/24 0730 08/19/24 0806 08/19/24 0917 08/19/24 1032 08/19/24 1135 08/19/24 1315 08/19/24 1520 08/19/24 1723 08/19/24 2020 08/20/24 0522 08/20/24 0736 GLUCOSE 281* -- 626* -- 653* -- -- -- -- -- -- -- 150* -- POCGLU -- < > -- < > -- >450* >450* >450* 414* 268* 162* 118* -- 158* BHYDRXBUT -- -- 7.01* -- -- -- -- -- -- -- -- -- -- -- < > = values in this interval not displayed. Procal: No results for input(s): PROCAL in the last 72 hours. CBC: Recent Labs 08/18/24 0417 08/19/24 0550 08/20/24 0522 08/20/24 1024 WBC 4.5 4.0 5.8 -- HGB 9.2* 9.3* 9.9* 10.1 HCT 29.1* 29.5* 30.5* -- PLT 111* 114* 145 -- MCV 92.1 93.1 90.8 -- RDW 15.7* 15.6* 15.5* -- Labs in Last 3 months: Lab Results Component Value Date TSH 3.472 07/26/2024 INR 1.0 08/13/2024 Microbiology- Urine Cx: Lab Results Component Value Date URINECX >100,000 CFU/mL Abbi albicans (A) 08/13/2024 Blood Cx: Lab Results Component Value Date BLOODCX No growth at 5 days 08/14/2024 Sputum Cx: Lab Results Component Value Date RESPCULT Rare respiratory keven present. 07/27/2024 RESPCULT Few Staphylococcus aureus (A) 07/27/2024 Gram Stain: Lab Results Component Value Date LABGRAM (A) 07/27/2024 Many Polymorphonuclear leukocytes per low power field LABGRAM Few Epithelial cells per low power field (A) 07/27/2024 LABGRAM Moderate Gram positive cocci (A) 07/27/2024 PNA PCR: Lab Results Component Value Date HUMANMETAPNE Not Detected 08/13/2024 COVID19: No results found for: COVID19 Legionella Ag: Lab Results Component Value Date LEGIONELLAPN Not Detected 07/27/2024 Strep Ag: No results for input(s): STREPPNEUMO in the last 72 hours. Imaging- CXR portable: Results for orders placed during the hospital encounter of 08/12/24 XR chest 1 view Narrative Patient Name: SANDY DENG : 1960 Exam Date/Time: 08/12/2024 13:10 Procedure: XR CHEST 1 VIEW Ordering Provider: BIANCHI SAMANTHA Reason For Exam: SOB EXAMINATION: Portable chest INDICATION: SOB FINDINGS: Right IJ dialysis catheter tips overlie the region of the cavoatrial junction. Probable small right-sided pleural effusion is present. Mild perihilar infiltrate on the right may be infectious or secondary to pulmonary edema. Question tiny pleural effusion on the left. The cardiac silhouette is borderline in size. Small osteophytes of the spine are present at multiple levels. Impression Suspect mild pulmonary edema with small pleural effusions. Report Dictated on Electronically Signed By: Kami Brown MD Electronically Signed Date/Time: 08/12/2024 1:13 PM EDT CXR (2V): No results found for this or any previous visit. CT Chest: No results found for this or any previous visit. CTA Chest: No results found for this or any previous visit. Other Studies: Reviewed and as per electronic record. CxR/CT images personally reviewed by me when available; salient findings summarized in A/P. Current Facility-Administered Medications: aspirin EC tablet 81 mg, 81 mg, Oral, Daily, Janell Booker MD, 81 mg at 08/19/24920 atorvastatin (Lipitor) tablet 20 mg, 20 mg, Oral, Nightly, Janell Booker MD, 20 mg at 08/19/242130 busPIRone (Buspar) tablet 7.5 mg, 7.5 mg, Oral, BID, Janell Booker MD, 7.5 mg at 08/19/242131 clopidogrel (Plavix) tablet 75 mg, 75 mg, Oral, Daily, Janell Booker MD, 75 mg at 10/17/24 0921 dextrose 5 % infusion, 100 mL/hr, IntraVENous, PRN, Janell Booker MD dextrose 50 % solution 12.5 g, 12.5 g, IntraVENous, PRN, Janell Booker MD, 12.5 g at 08/20/24 0834 fluticasone (Flonase) nasal spray 2 spray, 2 spray, Each Nostril, Daily, Janell Booker MD, 2 sprayat 08/19/24 09 gabapentin (Neurontin) capsule 200 mg, 200 mg, Oral, BID, Janell Booker MD, 200 mg at 08/19/24 2130 glucagon (human recombinant) injection 1 mg, 1 mg, IntraMUSCular, PRN, Janell Booker MD glucose oral gel 15 g, 15 g, Oral, PRN, Janell Booker MD guaiFENesin (Mucinex) 12 hr tablet 600 mg, 600 mg, Oral, BID, Janell Booker MD, 600 mg at 131 heparin injection 5,000 Units, 5,000 Units, SubCUTAneous, 2 times per day, Janell Booker MD, 5,000Units at 08/19/242130 insulin glargine (Lantus) injection 8 Units, 8 Units, SubCUTAneous, Nightly, Sandy Bowman DO Insulin Lispro (Humalog) injection 0-12 Units, 0-12 Units, SubCUTAneous, TID , Janell Booker MD,2 Units at 08/19/24 184 Insulin Lispro (Humalog) injection 6 Units, 6 Units, SubCUTAneous, TID , Sandy Bowman DO ipratropium-albuterol (Duo-Neb) 0.5-2.5 mg/3 mL nebulizer solution 3 mL, 3 mL, Nebulization, 4x daily PRN, Glenda Ma MD lisinopril tablet 2.5 mg, 2.5 mg, Oral, Daily, Janell Booker MD, 2.5 mg at 08/19/24919 metoprolol tartrate (Lopressor) tablet 25 mg, 25 mg, Oral, BID, Janell Booker MD, 25 mg at 08/19/242130 mirtazapine (Remeron) tablet 7.5 mg, 7.5 mg, Oral, Nightly, Janell Booker MD, 7.5 mg at 08/19/242128 mometasone-formoterol (Dulera 200) 200-5 MCG/ACT inhaler 2 puff, 2 puff, Inhalation, BID, Janell Booker MD, 2 puff at 08/19/24 213 ondansetron ODT (Zofran-ODT) disintegrating tablet 4 mg, 4 mg, Oral, q8h PRN OR ondansetron (Zofran) injection 4 mg, 4 mg, IntraVENous, q6h PRN, Janell Booker MD pantoprazole (ProtoNix) EC tablet 40 mg, 40 mg, Oral, Nightly, Janell Booker MD, 40 mg at 131 polyethylene glycol (PEG) 3350 (Miralax) packet 17 g, 17 g, Oral, Daily, Janell Booker MD, 17 g at1 0921 [COMPLETED] predniSONE (Deltasone) tablet 40 mg, 40 mg, Oral, Daily, 40 mg at 08/16/24 0844 FOLLOWED BY [COMPLETED] predniSONE (Deltasone) tablet 30 mg, 30 mg, Oral, Daily, 30 mg at 08/19/24 0920FOLLOWED BY predniSONE (Deltasone) tablet 20 mg, 20 mg, Oral, Daily FOLLOWED BY [START ON 08/23/2024] predniSONE (Deltasone) tablet 10 mg, 10 mg, Oral, Daily FOLLOWED BY [START ON 08/26/2024] predniSONE (Deltasone) tablet 5 mg, 5 mg, Oral, Daily, Janell Booker MD QUEtiapine (SEROquel) tablet 25 mg, 25 mg, Oral, Nightly, Janell Booker MD, 25 mg at 08/19/24 213 senna-docusate sodium (Senokot-S) 8.6-50 MG tablet 2 tablet, 2 tablet, Oral, Daily PRN, Janell Booker MD sodium chloride ([place]) 0.65 % nasal spray 1 spray, 1 spray, Each Nostril, PRN, Janell Booker MD, 1 spray at 08/18/24 1000 sodium chloride 0.9 % infusion, 250 mL/hr, IntraVENous, PRN, Janell Booker MD tiotropium (Spiriva Respimat) 2.5 MCG/ACT inhaler 2 puff, 2 puff, Inhalation, Daily, Glenda Ma MD Allergies No Known Allergies Glenda Ma MD PGY- 4 Pulmonary and Critical Care Medicine * Khai Espana, DO - 08/20/2024 7:12 AM EDT Med Team Progress Note Sandy Deng : 1960(63 y.o.) Date: August 20, 2024 Med Team: A Attending: Dr. Denise Chief Complaint: Shortness of breath and confusion Subjective: - No acute events overnight. - Currently, patient is very lethargic. Difficult to awake with sternal rub. Patient awakened momentarily during bedside POCUS exam. Patient is saturating well on home oxygen of 3L NC for which patient has been on for the past 6 months. PRN meds used in last 24hrs: sodium chloride nasal spray Review of Systems Reason unable to perform ROS: Patient lethargic and not answering prompts. Scheduled Meds:aspirin, 81 mg, Oral, Daily atorvastatin, 20 mg, Oral, Nightly busPIRone, 7.5 mg, Oral, BID clopidogrel, 75 mg, Oral, Daily fluticasone, 2 spray, Each Nostril, Daily gabapentin, 200 mg, Oral, BID guaiFENesin, 600 mg, Oral, BID heparin, 5,000 Units, SubCUTAneous, 2 times per day insulin glargine, 10 Units, SubCUTAneous, Nightly insulin lispro, 0-12 Units, SubCUTAneous, TID WC insulin lispro, 8 Units, SubCUTAneous, TID WC lisinopril, 2.5 mg, Oral, Daily metoprolol tartrate, 25 mg, Oral, BID mirtazapine, 7.5 mg, Oral, Nightly mometasone-formoterol, 2 puff, Inhalation, BID pantoprazole, 40 mg, Oral, Nightly polyethylene glycol (PEG) 3350, 17 g, Oral, Daily predniSONE, 20 mg, Oral, Daily Followed by [START ON 08/23/2024] predniSONE, 10 mg, Oral, Daily Followed by [START ON 08/26/2024] predniSONE, 5 mg, Oral, Daily QUEtiapine, 25 mg, Oral, Nightly tiotropium, 2 puff, Inhalation, Daily Continuous Infusions: Objective: BP 123/50 (BP Location: Left arm, Patient Position: Lying) Pulse 64 Temp 36.3 C (97.4 F) (Temporal) Resp 18 Ht 5' 6 (1.676 m) Wt 108 lb 7.5 oz (49.2 kg) SpO2 98% BMI 17.51 kg/m Physical Exam Constitutional: Appearance: She is underweight. She is ill-appearing. Interventions: Nasal cannula in place. Comments: 3L nasal canula Neck: Vascular: JVD present. Cardiovascular: Rate and Rhythm: Normal rate. Rhythm irregular. Heart sounds: Heart sounds are distant. Comments: - Strong radial pulses followed by random pauses Pulmonary: Breath sounds: Decreased breath sounds, rhonchi and rales present. No wheezing. Chest: Comments: - Dialysis port Abdominal: General: Abdomen is flat. Bowel sounds are normal. There is no distension. Musculoskeletal: Right lower leg: No edema. Left lower leg: No edema. Feet: Comments: Wound dressing present on bilateral medial ankle Skin: General: Skin is warm and dry. Findings: Bruising (left forearm) present. Neurological: Mental Status: She is lethargic. Comments: - Withdraws to painful stimulus [facility] within last 24 hours Auto WBC Date Value Ref Range Status 08/20/2024 5.8 3.6 - 10.7 10*3/uL Final Hemoglobin Date Value Ref Range Status 08/20/2024 9.9 (L) 11.7 - 16.0 g/dL Final Hematocrit Date Value Ref Range Status 08/20/2024 30.5 (L) 35.0 - 47.0 % Final Platelets Date Value Ref Range Status 08/20/2024 145 140 - 440 10*3/uL Final MCV Date Value Ref Range Status 08/20/2024 90.8 77.0 - 99.0 fL Final SODIUM Date Value Ref Range Status 08/20/2024 129 (L) 135 - 145 mmol/L Final POTASSIUM Date Value Ref Range Status 08/20/2024 4.0 3.5 - 5.1 mmol/L Final CHLORIDE Date Value Ref Range Status 08/20/2024 97 (L) 98 - 107 mmol/L Final CARBON DIOXIDE Date Value Ref Range Status 08/20/2024 24 22 - 30 mmol/L Final UREA NITROGEN Date Value Ref Range Status 08/20/2024 41 (H) 7 - 17 mg/dL Final CREATININE Date Value Ref Range Status 08/20/2024 3.58 (H) 0.52 - 1.04 mg/dL Final GLUCOSE Date Value Ref Range Status 08/20/2024 150 (H) 70 - 100 mg/dL Final CALCIUM Date Value Ref Range Status 08/20/2024 7.8 (L) 8.4 - 10.4 mg/dL Final MAGNESIUM Date Value Ref Range Status 08/20/2024 2.0 1.6 - 2.3 mg/dL Final PHOSPHORUS Date Value Ref Range Status 08/20/2024 4.1 2.5 - 4.5 mg/dL Final No results found for: AST, ALT, PROT, BILITOT, ALKPHOS, INR, APTT, LIPASE No results found for: CKTOTAL, CKMB, TROPONINI No results found for: PROCAL, CHOL, TRIG, HDL, TSH, VITD25, HGBA1C, VANCOTROUGH POCUS shows dilated jugular vein and dilated IVC Assessment and Plan: #Acute on chronic hypoxic and hypercapnic respiratory failure #COPD #Chest congestion - Oxygen sat 98% on 3L oxygen. Goal is between 88-92% - ABG shows pH 7.2, pCO2 71.5, O2 63.4 HCO3 27.9 - Start BiPAP for 1 hour, then recheck ABG at 12 noon. Consult ICU if patient's ABG still reflects uncompensated respiratory acidosis - Continue prednisone taper: 30mg 3 days, 20mg 3days, and 10mg 3 days. First dose of 20 mg scheduled for today - Pulmonary and respiratory therapy following - Fluid overload on POCUS exam. Scheduled for dialysis today - Duonebs scheduled q6h. Continue mucinex. Encourage oral hydration. #Altered mental status # Concern for CO2 Narcosis - Most likely due to CO2 narcosis (pCO2 today is 71.5 on ABG). Possible etiologies include acute drop in glucose from 600s to 150s. Lowest reading was 118 over night. Could also be due to hypoactive delirium - Start BiPAP for 1 hour, then recheck ABG at 12 noon. Consult ICU if patient's ABG still reflects uncompensated respiratory acidosis - Patient was given 12.5g dextrose - Continue to monitor #T1DM w/ hyperglycemia - Glucose was 150 this morning, 118 overnight - Dextrose 12.5g given because patient is not alert - Decrease Lantus from 10 to 8 units nightly, Decrease humalog to from 8 to 6 units with meals. Continue medium dose SS (up to 12 units). Continue with on carb controlled diet - Continue to monitor #ESRD on HD - Labs show Na 129, BUN 41, Cr 3.58 - Fluid overload on POCUS exam. Scheduled for dialysis today - Nephrology following, pt on MWF HD. Dialysis planned to today - Pt's would like to meet with SW or onsite case manager to discuss insurance coverage for dialysis before pt is discharged from hospital. #Normocytic Anemia - Normocytic anemia, Hgb stable (9.9). Pt has been hospitalized multiple times over past month likely contributing to decreased Hgb - No acute bleed suspected - Required 2 units pRBC this admission at ICU Resolved Problems: #MRSE positive in 1/2 blood cultures- likely contamination - aMRSE positive in 1/2 blood cultures- contamination vs infection, collected repeat blood cultures(no growth at 4 days), given one time dose vancomycin at ICU - ID following peripherally: low suspicion for active infection. Not on abx. - Recent hx of septic shock 2/2 CTX-M pseudomonas and staph aureus PNA with COVID-19 infection #Candiduria - symptomatic per chart review. Likely from perineal region, no need for treatment at this time #Pancytopenia - improving #Hx recent subdural hematoma- resolved Chronic Problems and Follow Up Items: #Demand Ischemia - Pt has hx of stent and NSTEMI, elevated troponin's looks to be stable around 0.070, discontinued trop trend on 08/13 #Chronic mastoiditis - chronic tinnitus, no localized pain- doubt acute infection. No need to treat. If worsens clinically, consider ENT evaluation. - Goals of Care: FULL CODE - DVT Prophylaxis: Heparin - GI Prophylaxis: Protonix daily - Diet: Carb-Control Cosigned by Savita Denise MD at 08/20/2024 11:47 AM EDT Associated attestation - Savita Denise MD - 08/20/2024 11:47 AM EDT Patient seen and evaluated personally by me and discussed with resident team. I have reviewed the cantrell elements of all parts of the encounter. I agree with the assessment, plan and orders as documented See below note w/ any additional comments and/or exceptions: Patient sleeping, difficult to arouse but finally did wake up while doing bedside POCUS w/ residentteam; ABG checked, pH 7.2, pCO2 71, pO2 63; BiPAP ordered w/ plan to recheck ABG this afternoon; encourage patient to use BiPAP overnight. Pulmonary following. 35 (Subsequent 96431) minutes spent potz-rk-gucw/floor time coordinating care and/or counseling patient. Savita Denise MD * Joni Monson MD - 08/19/2024 3:19 PM EDT Images from the original note were not included. Nephrology Progress Note Patient: Sandy Deng Room number: [id number] A Date of Admit: 08/12/2024 LOS: 7 days Referring physician: Kemar Adames DO Outpatient X Ray Inspector: Christy Huerta Assessment/Plan: Mrs. Sandy Deng is a 63 year old female with PMH of CKD 4, DM type 1, HTN, CAD, COPD (3L [id number]), initially presenting with resp distress and delirium, Covid positive. Also found to havepseudomonas and staph aures PNA. She was intubated, now extubated. CT head showed a small right SDH. Consulted for UMA on CKD 4 - follows with Dr Christy Huerta ([place]). On review of available labs,Cr has been 2.4-2.8, last (04/26) Cr 2.4 eGFR 20, 24 hr fgveuhj=1248 mg. On admit, (07/26) Cr 4.56, CRRT initiation for severe acidosis in setting of hemodynamic instability, cause of UMA thought to beATN in setttin of infection vs IRGN (complement levels found to be low). Now transitioned to iHD. Renal plan: 1- Oliguric UMA -receiving HD on MWF -pt has TDC -will continue to monitor for renal recovery, serum creat still rising between tx -next HD on Friday -watch gabapentin dose 2. Electrolytes -last Na was 126 but glucose 653 -K 4.4, using 3 K bath -Ca 7.4 (alb 2.9), iCa 4.2, given calcium gluconate -phosp 3.8 3. Acid-base - bicarb stable at 28 4. BP/volume status: -last BP 141/63 -on lisinopril 2.5 mg daily and metoprolol 25 mg bid -she had 3 L off yesterday 5. Anemia - Hgb 9.3 - pRBC needs per primary team 6. ID -off ABs 7. Other: -AMS: work up per primary team. -Hyperglycemia: team working on glucose control -COPD exacerbation: on prednisone taper -dispo: looking for [facility] Will follow along as directed. Thank you for allowing us to participate in the care of this patient. Joni Monson MD [facility] ([facility]) Office phone: [phone] Office fax: [phone] 08/19/2024 Subjective Patient seen this am afternoon. She was more lethargic today. She opened eyes briefly. She did not answer any questions. She has been afebrile. Blood sugars have been running high. Medications: Scheduled Meds:aspirin, 81 mg, Oral, Daily atorvastatin, 20 mg, Oral, Nightly busPIRone, 7.5 mg, Oral, BID clopidogrel, 75 mg, Oral, Daily fluticasone, 2 spray, Each Nostril, Daily gabapentin, 200 mg, Oral, BID guaiFENesin, 600 mg, Oral, BID heparin, 5,000 Units, SubCUTAneous, 2 times per day insulin glargine, 10 Units, SubCUTAneous, Nightly insulin lispro, 0-12 Units, SubCUTAneous, TID WC insulin lispro, 8 Units, SubCUTAneous, TID WC lisinopril, 2.5 mg, Oral, Daily metoprolol tartrate, 25 mg, Oral, BID mirtazapine, 7.5 mg, Oral, Nightly mometasone-formoterol, 2 puff, Inhalation, BID pantoprazole, 40 mg, Oral, Nightly polyethylene glycol (PEG) 3350, 17 g, Oral, Daily [START ON 08/20/2024] predniSONE, 20 mg, Oral, Daily Followed by [START ON 08/23/2024] predniSONE, 10 mg, Oral, Daily Followed by [START ON 08/26/2024] predniSONE, 5 mg, Oral, Daily QUEtiapine, 25 mg, Oral, Nightly tiotropium, 2 puff, Inhalation, Daily Continuous Infusions: Review of Systems: As above Physical Exam: Vitals: 08/18/24203308/19/24 0531 08/19/24 0749 08/19/24 1100 BP: 141/63 BP Location: Left arm Patient Position: Lying Pulse: 71 69 63 70 Resp: 16 18 18 18 Temp: 36 C (96.8 F) TempSrc: Temporal SpO2: 100% 100% 100% 100% Weight: Height: Today's weight: Weight: 49.2 kg (108 lb 7.5 oz) Admission weight: Weight: 57.2 kg (126 lb) Wt Readings from Last 3 Encounters: 08/18/24 49.2 kg (108 lb 7.5 oz) 08/07/24 57.4 kg (126 lb 8.7 oz) Estimated body mass index is 17.51 kg/m as calculated from the following: Height as of this encounter: 1.676 m (5' 6). Weight as of this encounter: 49.2 kg (108 lb 7.5 oz). No intake or output data in the 24 hours ending 08/19/24 1519 [REMOVED] Urethral Catheter Cbbmwzzd-rbo-Mqubie (mL): 25 mL FIO2 needs: on 4 L NC Physical exam General: lethargic, lying in chair HEENT: Sclera clear, EOMI, MMM, Nose/ears/hearing grossly normal Neck: Supple, trachea midline, no mass Right TDC Chest: Normal excursion Heart: RRR, no rub/heave Lungs: Clear bilaterally, unlabored Abd: Soft, (+) BS, non-tender, non distended Ext: No edema Neuro: No tremor/myoclonus Skin: warm and dry, no rash LABS: Recent Labs 08/17/2422208/18/2441608/19/24 0550 WBC 4.5 4.5 4.0 HGB 9.1* 9.2* 9.3* HCT 28.7* 29.1* 29.5* MCV 91.7 92.1 93.1 PLT 105* 111* 114* Recent Labs 08/17/2422208/18/2441608/19/24 0550 08/19/24 0806 NA 132* 130* 126* -- K 3.6 3.8 4.4 -- CL 100 99 95* -- CO2 28 27 28 -- BUN 21* 35* 28* -- CREATININE 2.31* 3.57* 2.98* -- GLUCOSE 152* 281* 626* 653* CALCIUM 7.0* 7.9* 7.4* -- MG 2.0 2.0 2.0 -- PHOS 2.8 3.4 3.8 -- ANIONGAP 5 4 3 -- Diagnostic Studies: CT head 08/12: IMPRESSION: 1. Interval resolution of tiny right subdural hematoma. 2. Bilateral mastoiditis and left otitis media, new compared to 07/26/2024. CXR 08/12: IMPRESSION: Suspect mild pulmonary edema with small pleural effusions. * Rosario Durham, PT - 08/19/2024 11:19 AM EDT Images from the original note were not included. PHYSICAL THERAPY [facility] Treatment Note Name/MRN: Sandy Deng ([id number]) Date of : 1960 Age: 63 y.o. Room/Bed: [facility] A Discharge Recommendation: IP Rehab Equipment Needed: No Other: pt owns FWW and straight cane Prior Level of Function Prior Level of ADL Function: Independent Prior Level of Mobility: Independent; Device: Straight Cane Prior Level of Transfers: Independent Assessment Pt still highly limited by pain and respiratory status. Min assist x 1 with bed mobility and transfers. Mod assist x 1 with ambulation using FWW. Increased time needed with all mobility and very [place].Noted wet, non-productive cough and tends to fatigue quickly with low level activity. Cont to recommend inpt rehab upon disch Subjective Pt lying upright in bed. Agreeable to therapy with request to use the bathroom Pain: Pt denies any current pain. Medical Precautions: No active isolations Proper PPE donned/doffed in accordance with facility standards. Fall Risk: [place] Fall Risk Score: 85 (High Risk) Precautions/Restrictions: Right LE Weight Bearing: Weight Bearing As Tolerated Left LE Weight Bearing: Weight Bearing As Tolerated 5L O2 via NC Overall Orientation Status: Oriented x4 Family/Caregiver Present: none Objective Bed Mobility Supine to sit: Min Assist Scooting: Min Assist Transfers/Mobility Sit to stand: Min Assist Stand to sit: Min Assist X3 trials. Once from EOB, twice from toilet in bathroom. Cues to push up from bed and to use grab bar in bathroom Device(s) used: None Ambulation Ambulation 1 Assistive device(s) used: Front wheeled walker Assist level: Mod Assist Distance (ft): 35' within room. Cues to remain inside FWW at all times. Quality of gait: step to pattern, shuffling, slow amanda Balance During Session: Posture: fair Sitting - Static: SBA Sitting - Dynamic: SBA Standing - Static: Min Assist Standing - Dynamic: Mod Assist Min assist x 1 to complete pericare following use of bathroom. Close supervision to wash hands at sink and to brush teeth. Cues to locate paper towel and soap dispensers. Plan Continue acute PT per plan of care. Safety/Education Safety Safety Devices in place: call light within reach, left in chair, chair alarm in place, gait belt, and nurse notified Restraints: No Education Education Given To: patient Education Provided: PT Role, PT Goals, Gait Training, Plan of Care, and Home Exercise Program Education Method: Verbal Barriers to Learning: None Outcome Measures AM-PAC AM-PAC Inpatient Mobility Raw Score (No Stairs) : 14 JH-HLM JH-HLM Score: Walked 25 ft or more (i.e. walked outside of room) Goals Patient Stated Goal: pt would like to get stronger Encounter Problems Encounter Problems (Active) Balance Patient will maintain dynamic standing balance for 5 minutes with SBA in order to demonstrate decreased risk of falling. (Progressing) Start: 08/17/24 Expected End: 09/14/24 Patient will maintain dynamic sitting balance for 5 minutes with modified independence in order to demonstrate improved postural control and prepare for out of bed mobility. (Not Addressed) Start: 08/17/24 Expected End: 09/14/24 Mobility Patient will ambulate 50 feet with min assist and rolling walker in order to improve safety and independence with mobility. (Progressing) Start: 08/17/24 Expected End: 09/14/24 Patient will ascend and descend 5 stairs with least restrictive device and min assist in order to safely negotiate home. (Not Addressed) Start: 08/17/24 Expected End: 09/14/24 Transfers Patient will perform bed mobility with supervision in order to improve independence and prepare forout of bed mobility. (Progressing) Start: 08/17/24 Expected End: 09/14/24 Patient will complete functional transfer with rolling walker with SBA in order to prepare for ambulation. (Progressing) Start: 08/17/24 Expected End: 09/14/24 Therapy Time Individual Co-treatment Time In 0817 Time Out 0840 Minutes 23 Timed Code Treatment Minutes: (2 units FA) Rosario Durham PT * Pascual Atkinson MD - 08/19/2024 7:59 AM EDT PULMONOLOGY CONSULT PROGRESS NOTE 08/19/2024 Hospital LOS: LOS: 7 days Chief Complaint: Acute on chronic hypoxic and hypercapnic respiratory failure I saw and evaluated the patient, participating in the cantrell portions of the service. I reviewed the fellow's note and agree with her findings and plan as below. Assessment: 1 acute and chronic hypoxic and hypercapnic respiratory failure 2 COPD and bronchiectasis 3 recent COVID-19 4 recent PNA, known aspiration issues 5 Hx of CAD 6 UMA/CKD currently on HD 7 right SDH 8 encephalopathy Plan: 1 O2 at baseline 2 prednisone taper 3 aerosols 4 aspiration precautions 5 nephrology following from fluid management Pascual Atkinson MD Subjective/Interval History: Patient was seen and examined at bedside, not in acute distress. This morning patient was lying andbedside sofa, was responsive. Denied any cough, shortness of breath or any other symptoms symptoms.Remained on baseline 4 L oxygen. A pertinent review of systems was performed and was otherwise non-contributory except as detailed in Subjective section above. Assessment and Plan: Acute hypoxic and hypercapnic respiratory failure. Currently at baseline. Back to 4 L baseline oxygen. Acute exacerbation of COPD, imaging finding showed centrilobular emphysema. No PFT on file. Recent history of septic shock with Staph aureus and multidrug-resistant Pseudomonas infection. MRSE bacteremia, 1 out of 2 bottles. Likely contaminated. Type 1 diabetes mellitus with hyperglycemia ESRD Pancytopenia. Candiduria Continue baseline oxygen. With SpO2 goal of 88% or more. Continue prednisone taper. Infectious disease on board. Will follow infectious disease recommendation. Continue breathing treatment with Dulera and Spiriva, DuoNeb as needed. Pulmonary team will continue to follow. Portions of the information within this encounter were entered using an electronic dictation system. Best attempts were made to edit/proofread the information prior to note completion. Despite the review of information, some errors may remain. If there are questions related to the information contained within the note please contact the signing physician directly. Vitals- BP 141/63 (BP Location: Left arm, Patient Position: Lying) Pulse 70 Temp 36 C (96.8 F) (Temporal) Resp 18 Ht 1.676 m (5' 6) Wt 49.2 kg (108 lb 7.5 oz) SpO2 100% BMI 17.51 kg/m Tmax: Temp (24hrs), Av.5 C (97.7 F), Min:36 C (96.8 F), Max:37 C (98.6 F) Hemodynamics: Cuff: Systolic (24hrs), Av , Min:141 , Max:159 /Diastolic (24hrs), Av, Min:58, Max:63 Cuff MAP:MAP (mmHg) Av.6 Min: 52 Max: 108 P: Pulse Av.2 Min: 63 Max: 73 Observed RR: Resp Av.7 Min: 16 Max: 20 Observed O2 sats: SpO2 Av.7 % Min: 77 % Max: 100 % No intake or output data in the 24 hours ending 08/19/24 1510 Physical exam- Physical Exam Cardiovascular: Rate and Rhythm: Normal rate. Pulses: Normal pulses. Pulmonary: Effort: Pulmonary effort is normal. No respiratory distress. Breath sounds: Normal breath sounds. No stridor. No wheezing, rhonchi or rales. Chest: Chest wall: No tenderness. Abdominal: General: Abdomen is flat. Palpations: Abdomen is soft. Tenderness: There is no abdominal tenderness. Neurological: General: No focal deficit present. Mental Status: She is alert. Data: [facility] within last 24 hours- BMP: Recent Labs 08/17/2422208/18/2441608/19/24 0550 NA 132* 130* 126* K 3.6 3.8 4.4 CL 100 99 95* CO2 28 27 28 BUN 21* 35* 28* CREATININE 2.31* 3.57* 2.98* CALCIUM 7.0* 7.9* 7.4* MG 2.0 2.0 2.0 PHOS 2.8 3.4 3.8 LFTs:No results for input(s): AST, ALT, PROT, ALBUMIN, BILITOT, BILIRUBINU, ALKPHOS, LIPASE in the last 72 hours. Glucose: Recent Labs 08/17/2422208/17/24 0833 08/18/247 08/18/24 0954 08/18/24 1322 08/18/24 1623 08/18/24 2018 08/19/24 0550 08/19/24 0730 08/19/24 0806 08/19/24 0917 08/19/24 1032 08/19/24 1135 08/19/24 1315 GLUCOSE 152* -- 281* -- -- -- -- 626* -- 653* -- -- -- -- POCGLU -- < > -- < > 181* 325* 297* -- >450* -- >450* >450* >450* 414* BHYDRXBUT -- -- -- -- -- -- -- 7.01* -- -- -- -- -- -- < > = values in this interval not displayed. Procal: No results for input(s): PROCAL in the last 72 hours. CBC: Recent Labs 08/17/24 0223 08/18/24 0417 08/19/24 0550 WBC 4.5 4.5 4.0 HGB 9.1* 9.2* 9.3* HCT 28.7* 29.1* 29.5* PLT 105* 111* 114* MCV 91.7 92.1 93.1 RDW 15.8* 15.7* 15.6* Labs in Last 3 months: Lab Results Component Value Date TSH 3.472 07/26/2024 INR 1.0 08/13/2024 Microbiology- Urine Cx: Lab Results Component Value Date URINECX >100,000 CFU/mL Abbi albicans (A) 08/13/2024 Blood Cx: Lab Results Component Value Date BLOODCX No growth at 5 days 08/14/2024 Sputum Cx: Lab Results Component Value Date RESPCULT Rare respiratory keven present. 07/27/2024 RESPCULT Few Staphylococcus aureus (A) 07/27/2024 Gram Stain: Lab Results Component Value Date LABGRAM (A) 07/27/2024 Many Polymorphonuclear leukocytes per low power field LABGRAM Few Epithelial cells per low power field (A) 07/27/2024 LABGRAM Moderate Gram positive cocci (A) 07/27/2024 PNA PCR: Lab Results Component Value Date HUMANMETAPNE Not Detected 08/13/2024 COVID19: No results found for: COVID19 Legionella Ag: Lab Results Component Value Date LEGIONELLAPN Not Detected 07/27/2024 Strep Ag: No results for input(s): STREPPNEUMO in the last 72 hours. Imaging- CXR portable: Results for orders placed during the hospital encounter of 08/12/24 XR chest 1 view Narrative Patient Name: SANDY DENG : 1960 Exam Date/Time: 08/12/2024 13:10 Procedure: XR CHEST 1 VIEW Ordering Provider: BIANCHI SAMANTHA Reason For Exam: SOB EXAMINATION: Portable chest INDICATION: SOB FINDINGS: Right IJ dialysis catheter tips overlie the region of the cavoatrial junction. Probable small right-sided pleural effusion is present. Mild perihilar infiltrate on the right may be infectious or secondary to pulmonary edema. Question tiny pleural effusion on the left. The cardiac silhouette is borderline in size. Small osteophytes of the spine are present at multiple levels. Impression Suspect mild pulmonary edema with small pleural effusions. Report Dictated on Electronically Signed By: Kami Brown MD Electronically Signed Date/Time: 08/12/2024 1:13 PM EDT CXR (2V): No results found for this or any previous visit. CT Chest: No results found for this or any previous visit. CTA Chest: No results found for this or any previous visit. Other Studies: Reviewed and as per electronic record. CxR/CT images personally reviewed by me when available; salient findings summarized in A/P. Current Facility-Administered Medications: aspirin EC tablet 81 mg, 81 mg, Oral, Daily, Janell Booker MD, 81 mg at 08/19/24920 atorvastatin (Lipitor) tablet 20 mg, 20 mg, Oral, Nightly, Janell Booker MD, 20 mg at 08/18/242012 busPIRone (Buspar) tablet 7.5 mg, 7.5 mg, Oral, BID, Janell Booker MD, 7.5 mg at 08/19/24 121 clopidogrel (Plavix) tablet 75 mg, 75 mg, Oral, Daily, Janell Booker MD, 75 mg at 08/19/24920 dextrose 5 % infusion, 100 mL/hr, IntraVENous, PRN, Janell Booker MD dextrose 50 % solution 12.5 g, 12.5 g, IntraVENous, PRN, Janell Booker MD fluticasone (Flonase) nasal spray 2 spray, 2 spray, Each Nostril, Daily, Janell Booker MD, 2 sprayat 08/19/24920 gabapentin (Neurontin) capsule 200 mg, 200 mg, Oral, BID, Janell Booker MD, 200 mg at 08/19/24920 glucagon (human recombinant) injection 1 mg, 1 mg, IntraMUSCular, PRN, Janell Booker MD glucose oral gel 15 g, 15 g, Oral, PRN, Janell Booker MD guaiFENesin (Mucinex) 12 hr tablet 600 mg, 600 mg, Oral, BID, Janell Booker MD, 600 mg at heparin injection 5,000 Units, 5,000 Units, SubCUTAneous, 2 times per day, Janell Booker MD, 5,000Units at 08/19/24 09 insulin glargine (Lantus) injection 10 Units, 10 Units, SubCUTAneous, Nightly, William Jarrett DO Insulin Lispro (Humalog) injection 0-12 Units, 0-12 Units, SubCUTAneous, TID WC, Janell Booker MD,12 Units at 08/19/24 1406 Insulin Lispro (Humalog) injection 8 Units, 8 Units, SubCUTAneous, TID , William Jarrett DO, 8 Unitsat 08/19/24 1405 ipratropium-albuterol (Duo-Neb) 0.5-2.5 mg/3 mL nebulizer solution 3 mL, 3 mL, Nebulization, 4x daily PRN, Glenda Ma MD lisinopril tablet 2.5 mg, 2.5 mg, Oral, Daily, Janell Booker MD, 2.5 mg at 08/19/24919 metoprolol tartrate (Lopressor) tablet 25 mg, 25 mg, Oral, BID, Janell Booker MD, 25 mg at 08/19/24919 mirtazapine (Remeron) tablet 7.5 mg, 7.5 mg, Oral, Nightly, Janell Booker MD, 7.5 mg at 08/18/242012 mometasone-formoterol (Dulera 200) 200-5 MCG/ACT inhaler 2 puff, 2 puff, Inhalation, BID, Janell Booker MD, 2 puff at 08/19/24 09 ondansetron ODT (Zofran-ODT) disintegrating tablet 4 mg, 4 mg, Oral, q8h PRN OR ondansetron (Zofran) injection 4 mg, 4 mg, IntraVENous, q6h PRN, Janell Booker MD pantoprazole (ProtoNix) EC tablet 40 mg, 40 mg, Oral, Nightly, Janell Booker MD, 40 mg at polyethylene glycol (PEG) 3350 (Miralax) packet 17 g, 17 g, Oral, Daily, Janell Booker MD, 17 g at1 0921 [COMPLETED] predniSONE (Deltasone) tablet 40 mg, 40 mg, Oral, Daily, 40 mg at 08/16/24 0844 FOLLOWED BY [COMPLETED] predniSONE (Deltasone) tablet 30 mg, 30 mg, Oral, Daily, 30 mg at 08/19/24 0920FOLLOWED BY [START ON 08/20/2024] predniSONE (Deltasone) tablet 20 mg, 20 mg, Oral, Daily FOLLOWED BY [START ON 08/23/2024] predniSONE (Deltasone) tablet 10 mg, 10 mg, Oral, Daily FOLLOWED BY [START ON 08/26/2024] predniSONE (Deltasone) tablet 5 mg, 5 mg, Oral, Daily, Janell Booker MD QUEtiapine (SEROquel) tablet 25 mg, 25 mg, Oral, Nightly, Janell Booker MD, 25 mg at 08/18/242012 senna-docusate sodium (Senokot-S) 8.6-50 MG tablet 2 tablet, 2 tablet, Oral, Daily PRN, Janell Booker MD sodium chloride (Potrero) 0.65 % nasal spray 1 spray, 1 spray, Each Nostril, PRN, Janell Booker MD, 1 spray at 08/18/24 1000 sodium chloride 0.9 % infusion, 250 mL/hr, IntraVENous, PRN, Janell Booker MD tiotropium (Spiriva Respimat) 2.5 MCG/ACT inhaler 2 puff, 2 puff, Inhalation, Daily, Glenda Ma MD Allergies No Known Allergies Glenda Ma MD PGY- 4 Pulmonary and Critical Care Medicine * Elliott Menard DO - 08/19/2024 7:47 AM EDT Med Team Progress Note Sandy Deng : 1960(63 y.o.) Date: August 19, 2024 Med Team: Frank Attending: Dr. Denise Chief Complaint: SOB and Confusion Subjective: - No acute events overnight. - Currently, patient was not very conversational pre-round. She said yes when asked if she was inpain, but could not elaborate. She finished eating breakfast (oatmeal, orange juice) and requested to have her chair reclined so she can sleep. - We checked back in during rounds and she was taking a nap. was at bedside this time. He states patient is confused and the words she is saying are not making sense. He states that pt was diagnosed with Type I diabetes when she was about 37 years old and has always been on insulin. He states she sleeps a lot when her sugars are high. She has only been hospitalized one time for lung issues this July and confirmed that she is on 3L of oxygen at home, not 4L. She uses albuterol andanother red inhaler that starts with B. He also states that she has only ever gotten dialysis during her recent hospitalization. - Patient was able to recognize her and was able to stick her tongue out when asked to do so. PRN meds used in last 24hrs: Sodium chloride nasal spray Review of Systems Reason unable to perform ROS: Patient only intermittently responding. Scheduled Meds:aspirin, 81 mg, Oral, Daily atorvastatin, 20 mg, Oral, Nightly busPIRone, 7.5 mg, Oral, BID clopidogrel, 75 mg, Oral, Daily fluticasone, 2 spray, Each Nostril, Daily gabapentin, 200 mg, Oral, BID guaiFENesin, 600 mg, Oral, BID heparin, 5,000 Units, SubCUTAneous, 2 times per day insulin glargine, 10 Units, SubCUTAneous, Nightly insulin lispro, 0-12 Units, SubCUTAneous, TID WC insulin lispro, 8 Units, SubCUTAneous, TID WC ipratropium-albuterol, 3 mL, Nebulization, 4x daily lisinopril, 2.5 mg, Oral, Daily metoprolol tartrate, 25 mg, Oral, BID mirtazapine, 7.5 mg, Oral, Nightly mometasone-formoterol, 2 puff, Inhalation, BID pantoprazole, 40 mg, Oral, Nightly polyethylene glycol (PEG) 3350, 17 g, Oral, Daily [START ON 08/20/2024] predniSONE, 20 mg, Oral, Daily Followed by [START ON 08/23/2024] predniSONE, 10 mg, Oral, Daily Followed by [START ON 08/26/2024] predniSONE, 5 mg, Oral, Daily QUEtiapine, 25 mg, Oral, Nightly [Held by provider] tiotropium, 2 puff, Inhalation, Daily Continuous Infusions: Objective: BP 141/63 (BP Location: Left arm, Patient Position: Lying) Pulse 70 Temp 36 C (96.8 F) (Temporal) Resp 18 Ht 5' 6 (1.676 m) Wt 108 lb 7.5 oz (49.2 kg) SpO2 100% BMI 17.51 kg/m Physical Exam Constitutional: General: She is not in acute distress. Appearance: She is ill-appearing. Interventions: Nasal cannula in place. Cardiovascular: Rate and Rhythm: Normal rate and regular rhythm. Heart sounds: S1 normal and S2 normal. Pulmonary: Effort: Accessory muscle usage present. Breath sounds: Decreased breath sounds present. No wheezing. Comments: Audible cough Abdominal: General: Abdomen is flat. Palpations: Abdomen is soft. Musculoskeletal: General: No swelling. Skin: General: Skin is warm and dry. Neurological: Mental Status: She is easily aroused. Comments: Alert to person [facility] within last 24 hours Auto WBC Date Value Ref Range Status 08/19/2024 4.0 3.6 - 10.7 10*3/uL Final Hemoglobin Date Value Ref Range Status 08/19/2024 9.3 (L) 11.7 - 16.0 g/dL Final Hematocrit Date Value Ref Range Status 08/19/2024 29.5 (L) 35.0 - 47.0 % Final Platelets Date Value Ref Range Status 08/19/2024 114 (L) 140 - 440 10*3/uL Final MCV Date Value Ref Range Status 08/19/2024 93.1 77.0 - 99.0 fL Final SODIUM Date Value Ref Range Status 08/19/2024 126 (L) 135 - 145 mmol/L Final POTASSIUM Date Value Ref Range Status 08/19/2024 4.4 3.5 - 5.1 mmol/L Final CHLORIDE Date Value Ref Range Status 08/19/2024 95 (L) 98 - 107 mmol/L Final CARBON DIOXIDE Date Value Ref Range Status 08/19/2024 28 22 - 30 mmol/L Final UREA NITROGEN Date Value Ref Range Status 08/19/2024 28 (H) 7 - 17 mg/dL Final CREATININE Date Value Ref Range Status 08/19/2024 2.98 (H) 0.52 - 1.04 mg/dL Final GLUCOSE Date Value Ref Range Status 08/19/2024 653 (HH) 70 - 100 mg/dL Final CALCIUM Date Value Ref Range Status 08/19/2024 7.4 (L) 8.4 - 10.4 mg/dL Final MAGNESIUM Date Value Ref Range Status 08/19/2024 2.0 1.6 - 2.3 mg/dL Final PHOSPHORUS Date Value Ref Range Status 08/19/2024 3.8 2.5 - 4.5 mg/dL Final No results found for: AST, ALT, PROT, BILITOT, ALKPHOS, INR, APTT, LIPASE No results found for: CKTOTAL, CKMB, TROPONINI No results found for: PROCAL, CHOL, TRIG, HDL, TSH, VITD25, HGBA1C, VANCOTROUGH Assessment and Plan: COPD Chest congestion - Oxygen sat 100%. Goal is between 88-92% - Decrease oxygen from 4L to 3L (basal home oxygen) - Continue prednisone taper: 30mg 3 days, 20mg 3days, and 10mg 3 days. - Pulmonary and respiratory therapy following - Duonebs scheduled q6h. Continue mucinex. Encourage oral hydration. T1DM w/ hyperglycemia - Poorly controled glucose, currently on steroid taper which might be contributing to current hyperglycemia - Patient given 25 units total of regular insulin in setting of hyperglycemia (glucose >600) - Increase Lantus from 2 to 10 units nightly, Increase lispro to from 6 to 8 units with meals. Continue medium dose SS (up to 12 units). Continue with on carb controlled diet - Continue to monitor ESRD on HD - Nephrology following, pt on MWF HD - Pt's would like to meet with SW or onsite case manager to discuss insurance coverage for dialysis before pt is discharged from hospital. Normocytic Anemia - Normocytic anemia, Hgb stable (9.3). Pt has been hospitalized multiple times over past month likely contributing to decreased Hgb - No acute bleed suspected - Required 2 units pRBC this admission at ICU MRSE positive in 1/2 blood cultures- likely contamination - aMRSE positive in 1/2 blood cultures- contamination vs infection, collected repeat blood cultures(no growth at 4 days), given one time dose vancomycin at ICU - ID following peripherally: low suspicion for active infection. Not on abx. - Recent hx of septic shock 2/2 CTX-M pseudomonas and staph aureus PNA with COVID-19 infection Resolved Problems: Candiduria - symptomatic, likely from perineal region, no need for treatment at this time Pancytopenia - improving Hx recent subdural hematoma- resolved Chronic Problems and Follow Up Items: Demand Ischemia - Pt has hx of stent and NSTEMI, elevated troponin's looks to be stable around 0.070, discontinued trop trend on 08/13 Chronic mastoiditis - chronic tinnitus, no localized pain- doubt acute infection. No need to treat. If worsens clinically, consider ENT evaluation. - Goals of Care: FULL CODE - DVT Prophylaxis: Heparin - GI Prophylaxis: Protonix daily - Diet: Carb-Control - Disposition: PT and OT recommended IPR on discharge. manager of broadcast content following Cosigned by Savita Denise MD at 08/19/2024 10:00 PM EDT Associated attestation - Savita Denise MD - 08/19/2024 10:00 PM EDT Patient seen and evaluated personally by me and discussed with resident team. I have reviewed the cantrell elements of all parts of the encounter. I agree with the assessment, plan and orders as documented See below note w/ any additional comments and/or exceptions: Patient sleeping in chair, wakes up w/ much prompting, at bedside; Bss elevated, adjusting insulin; dialysis per nephrology. Optimizing respiratory status as directed by pulmonary service. 35 (Subsequent 31150) minutes spent gbxy-ta-outo/floor time coordinating care and/or counseling patient. Savita Denise MD * Lidia Rojas, RD - 08/18/2024 1:26 PM EDT Nutrition Assessment Type and Reason for Visit: Reassess Nutrition Recommendations/Plan: 1. Pt is currently ordered a CHO Controlled (60gm CHO/meal) Diet. --> of note during pt recent admit she underwent MBSS 08/04 with pureed/mildly thick liquids recs, was later upgraded to regular textures/mildly thick liquids prior [facility]. [facility] Soft and Bite Sized Diet with Mildly Thick Liquids. RN and pt subjective denying issues with swallowing at this time. Continue to monitor need for MULTIFOCAL LENS ASSEMBLER assessment given rec ent recommendations. 2. Will continue to monitor PO intake for adequacy, pt states that her appetite is so/so however she feels she is eating well enough at meals and does not need ONS. Will continue to assess need especially in setting of ESRD/HD with increased protein needs. 3. Will continue to monitor weight changes, labs and overall nutrition status 4. RD will continue to follow up weekly Malnutrition Assessment: Malnutrition Status: At risk for malnutrition (Comment) (will continue to monitor criteria for changes throughout admit) Context: Acute Illness Findings of the 6 clinical characteristics of malnutrition: Energy Intake: Mild decrease in energy intake (Comment) (NPO 08/12, Regular Diet 08/13, 60gm CHO/meal restrictions added 08/16, PO intakes in flowsheets reviewed --> 08/14: 76-99% B and D, 1-25% L, 08/15: 100% B and 1-25% L, 08/16: 100% B, 26-50% L and 76-99% D, 08/17: 100% B and 76-99% L, declines ONS) Weight Loss: Unable to assess (pt CBW 108# no method on 08/18 however ? accuracy, pt was 118# bedscale yesterday 08/17, noted 126# bedscale on 08/12 presentation, no weight history prior to recent admit --> 07/28/24: 134# bedscale, 08/07/24: 126# bedscale, pt recently started on HD) Body Fat Loss: (NFPE deferred, pt is soft spoken and not very interactive) Muscle Mass Loss: (NFPE deferred, pt is soft spoken and not very interactive) Fluid Accumulation: No significant fluid accumulation (per flowsheets) (BUE pitting, BLE non-pitting per flowsheets) Digital Archivist Strength: Not Performed Nutrition Assessment: pt with previously reviewed PMH who remains admitted to the ICU after she initially presented to [facility] ED on 08/12/24 in respiratory distress, pt was d/c to [facility] following admit and was found with altered mentation, NC was taken off and pulse ox was 80%, pt was brought to [facility] ED for assessment, in theED mental status was improving on nonrebreather but VBG revealed pH of 7.09, with pCO2 at 101, pt was placed on NIV and transferred to ICU for further management of hypercapnic respiratory failure, MD noted suspect acute on chronic hypoxic and hypercarbic respiratory failure / to COPD flaring post COVID 19 infection during previous admission, pt has been able to be weaned off NIV, pt initiated o n slow prednisone taper, blood glucose has been increasing and has required adjustment of insulin regimen, ID was following- noted 08/16 pt stable off of antibiotics and repeat blood cx are sterile to date- blood cx were drawn peripherally thus suspect this may represent a contaminant- following per ipherally at this time, Nephrology remains following due to ESRD on HD- HD 08/16 -2700mL and dialysis today with 3000mL off, PT/OT following- yesterday with recs to d/c back to [facility], wound care following due to left 4th toe abrasion, noted pt has been deemed stable for transfer to [facility] since 08/14. In terms of nutrition throughout admit pt initially NPO 08/12, Regular Diet ordered 08/13 afternoon, CHO Controlled (60gm CHO/meal) restrictions added 08/16 AM, PO intakes in flowsheets reviewed thusfar --> 08/14: 76-99% B and D, 1-25% L, 08/15: 100% B and 1-25% L, 08/16: 100% B, 26-50% L and 76-99% D, 08/17: 100% B and 76-99% L, of note during recent admit pt underwent MBSS on 08/04 with puree d/mildly thick liquids recs, was later upgraded to regular textures/mildly thick liquids on 08/09 prior to d/c, [facility] receiving a Soft and Bite Sized Diet with Mildly Thick Liquids, RD spoke with pt and present at bedside, pt states that her appetite is so/so,pt denies chewing/swallowing issues on regular consistency diet, RN did not voice any concerns related to pt swallowing and stated that pt had oatmeal and OJ for breakfast this AM, pt feels that she is eating adequately at meals, RD offered ONS and pt declines need at this time, pt CBW 108# no method on 08/18 (? accuracy as pt was 118# bedscale yesterday 08/17), was 126# bedscale on 08/12 presentation, pt and decline having questions/concerns for RD, will continue to monitor clinical course. Nutrition Related Findings: Lives with: Spouse/significant other, Primary Caregiver: Self Orientation Level: Oriented to person, Oriented to time, Disoriented to place, Disoriented to situation, Cognition: Follows commands, Best Verbal Response: Confused, Patient Behaviors/Mood: Calm, Cooperative Teeth: Missing teeth Swallow: Able to swallow solids and liquids without difficulty Feeding: Unable to assess Room Service Room Service: Selective Hipolito Scale Score: 17. Wound Type: (wound care following due to left 4th toe abrasion, also noted to have generalized bruising) Net IO Since Admission: 1,180 mL [08/18/24 1326] Gastrointestinal (WDL): Within Defined Limits Bowel Sounds (All Quadrants): Active Abdomen Inspection: Soft, Nondistended Last BM Date: 08/18/24, Stool Appearance: Soft, Stool Color: Brown Edema: , RUE Edema: None, LUE Edema: None, RLE Edema: None, LLE Edema: None Oxygen Therapy: Supplemental oxygen, O2 Delivery Method: Nasal cannula, FiO2 (%): 30 %, O2 Flow Rate (L/min): 4 L/min Labs and meds reviewed: Scheduled: aspirin, 81 mg, Oral, Daily atorvastatin, 20 mg, Oral, Nightly busPIRone, 7.5 mg, Oral, BID clopidogrel, 75 mg, Oral, Daily fluticasone, 2 spray, Each Nostril, Daily gabapentin, 200 mg, Oral, BID guaiFENesin, 600 mg, Oral, BID heparin, 5,000 Units, SubCUTAneous, 2 times per day insulin glargine, 2 Units, SubCUTAneous, Nightly insulin lispro, 0-12 Units, SubCUTAneous, TID WC insulin lispro, 6 Units, SubCUTAneous, TID WC ipratropium-albuterol, 3 mL, Nebulization, 4x daily lisinopril, 2.5 mg, Oral, Daily metoprolol tartrate, 25 mg, Oral, BID mirtazapine, 7.5 mg, Oral, Nightly mometasone-formoterol, 2 puff, Inhalation, BID pantoprazole, 40 mg, Oral, Nightly polyethylene glycol (PEG) 3350, 17 g, Oral, Daily predniSONE, 30 mg, Oral, Daily Followed by [START ON 08/20/2024] predniSONE, 20 mg, Oral, Daily Followed by [START ON 08/23/2024] predniSONE, 10 mg, Oral, Daily Followed by [START ON 08/26/2024] predniSONE, 5 mg, Oral, Daily QUEtiapine, 25 mg, Oral, Nightly [Held by provider] tiotropium, 2 puff, Inhalation, Daily Continuous: none Current Nutrition Therapies: Adult diet Regular; 4 carb choices (60 gm/meal) Current Oral Intake Average Meal Intake: (PO intakes in flowsheets reviewed thus far --> 08/14: 76- 99% B and D, 1-25% L, 08/15: 100% B and 1-25% L, 08/16: 100% B, 26-50% L and 76- 99% D, 08/17: 100% B and 76-99% L) Average Supplements Intake: None Ordered Anthropometric Measures: Height: 167.6 cm (5' 6) Current Body Weight: 49 kg (108 lb) (no method 08/18, ? accuracy as was 118# bedscale yesterday 08/17) Weight Source: Not Specified Admission Body Weight: 57.2 kg (126 lb) (bedscale 08/12) Usual Body Weight: (no weight history prior to recent admit --> 07/28/24: 134# bedscale, 08/07/24:126# bedscale) [place] Body Weight (lbs) (Calculated): 130 lbs [place] Body Weight (Kg) (Calculated): 59 kg % [place] Body Weight (Calculated): 83.1 % BMI (kg/m2) (Calculated): 17.4 Weight Adjustment For: No Adjustment BMI Categories: Underweight (BMI less than 18.5) Nutrition Interventions: Nutrition Education/Counseling: Education declined Coordination of Nutrition Care: Continue to monitor while inpatient Goals: Previous Goal Met: Progressing toward Goal(s) Goals: PO intake 75% or greater, by next RD assessment Nutrition Monitoring and Evaluation: Behavioral-Environmental Outcomes: None Identified Food/Nutrient Intake Outcomes: Food and Nutrient Intake Physical Signs/Symptoms Outcomes: Biochemical Data, Chewing or Swallowing, GI Status, Fluid Status or Edema, Hemodynamic Status, Meal Time Behavior, Weight, Skin, Nutrition Focused Physical Findings Discharge Planning: Too soon to determine Lidia Rojas RD Contact: available via [employer] chat or *[phone] * Joni Monson MD - 08/18/2024 12:55 PM EDT Images from the original note were not included. Nephrology Progress Note Patient: Sandy Deng Room number: [id number] Date of Admit: 08/12/2024 LOS: 6 days Referring physician: Kemar Adames DO Outpatient X Ray Inspector: Christy Huerta Assessment/Plan: Mrs. Sandy Deng is a 63 year old female with PMH of CKD 4, DM type 1, HTN, CAD, COPD (3L [id number]), initially presenting with resp distress and delirium, Covid positive. Also found to havepseudomonas and staph aures PNA. She was intubated, now extubated. CT head showed a small right SDH. Consulted for UMA on CKD 4 - follows with Dr Christy Huerta ([place]). On review of available labs,Cr has been 2.4-2.8, last (04/26) Cr 2.4 eGFR 20, 24 hr [id number]=0911 mg. On admit, (07/26) Cr 4.56, CRRT initiation for severe acidosis in setting of hemodynamic instability, cause of UMA thought to beATN in setttin of infection vs IRGN (complement levels found to be low). Now transitioned to iHD. Renal plan: 1- Oliguric UMA -receiving HD on MWF -pt has TDC -will continue to monitor for renal recovery, serum creat still rising between tx 2. Electrolytes -last Na was 130, will address with volume removal -K 3.8, on 3 K bath -Ca 7.9 (alb 2.9) and phosp 3.4 3. Acid-base - bicarb stable at 27 4. BP/volume status: -last BP 126/57 -on lisinopril 2.5 mg daily and metoprolol 25 mg bid -UF goal 3 L 5. Anemia - Hgb 9.2 - pRBC needs per primary team 6. ID -off ABs 7. Dispo: -looking for [facility] Will follow along as directed. Thank you for allowing us to participate in the care of this patient. Case discussed with primary team. Joni Monson MD [facility] ([facility]) Office phone: [phone] Office fax: [phone] 08/18/2024 Subjective Patient seen this am during HD. Spouse at bedside. She had no new complaints, she denied any nausea, vomiting, SOB or abdominal discomfort. She is on 4 L NC. Medications: Scheduled Meds:aspirin, 81 mg, Oral, Daily atorvastatin, 20 mg, Oral, Nightly busPIRone, 7.5 mg, Oral, BID clopidogrel, 75 mg, Oral, Daily fluticasone, 2 spray, Each Nostril, Daily gabapentin, 200 mg, Oral, BID guaiFENesin, 600 mg, Oral, BID heparin, 5,000 Units, SubCUTAneous, 2 times per day insulin glargine, 2 Units, SubCUTAneous, Nightly insulin lispro, 0-12 Units, SubCUTAneous, TID WC insulin lispro, 6 Units, SubCUTAneous, TID WC ipratropium-albuterol, 3 mL, Nebulization, 4x daily lisinopril, 2.5 mg, Oral, Daily metoprolol tartrate, 25 mg, Oral, BID mirtazapine, 7.5 mg, Oral, Nightly mometasone-formoterol, 2 puff, Inhalation, BID pantoprazole, 40 mg, Oral, Nightly polyethylene glycol (PEG) 3350, 17 g, Oral, Daily predniSONE, 30 mg, Oral, Daily Followed by [START ON 08/20/2024] predniSONE, 20 mg, Oral, Daily Followed by [START ON 08/23/2024] predniSONE, 10 mg, Oral, Daily Followed by [START ON 08/26/2024] predniSONE, 5 mg, Oral, Daily QUEtiapine, 25 mg, Oral, Nightly [Held by provider] tiotropium, 2 puff, Inhalation, Daily Continuous Infusions: Review of Systems: As above Physical Exam: Vitals: 08/18/24 1115 08/18/24 1121 08/18/24 1207 08/18/24 1208 BP: 113/58 126/57 Pulse: 68 67 66 Resp: 18 18 18 Temp: 36.5 C (97.7 F) TempSrc: SpO2: 99% Weight: Height: 1.676 m (5' 6) Today's weight: Weight: 49.2 kg (108 lb 7.5 oz) Admission weight: Weight: 57.2 kg (126 lb) Wt Readings from Last 3 Encounters: 08/18/24 49.2 kg (108 lb 7.5 oz) 08/07/24 57.4 kg (126 lb 8.7 oz) Estimated body mass index is 17.51 kg/m as calculated from the following: Height as of this encounter: 1.676 m (5' 6). Weight as of this encounter: 49.2 kg (108 lb 7.5 oz). Intake/Output Summary (Last 24 hours) at 08/18/2024 1256 Last data filed at 08/18/2024 1121 Gross per 24 hour Intake 250 ml Output 3500 ml Net -3250 ml [REMOVED] Urethral Catheter Eacmmimy-ynh-Zlaapi (mL): 25 mL FIO2 needs: on 4 L NC Physical exam General: awake and alert, in no acute distress HEENT: Sclera clear, EOMI, MMM, Nose/ears/hearing grossly normal Neck: Supple, trachea midline, no mass Right TDC Chest: Normal excursion Heart: RRR, no rub/heave Lungs: Clear bilaterally, unlabored Abd: Soft, (+) BS, non-tender, non distended Ext: No edema Neuro: No tremor/myoclonus Skin: warm and dry, no rash LABS: Recent Labs 08/16/24 0339 08/17/24 0223 08/18/24 0417 WBC 4.8 4.5 4.5 HGB 9.7* 9.1* 9.2* HCT 30.0* 28.7* 29.1* MCV 91.5 91.7 92.1 PLT 104* 105* 111* Recent Labs 08/16/24 0339 08/17/24 0223 08/18/24 0417 NA 131* 132* 130* K 4.1 3.6 3.8 CL 98 100 99 CO2 27 28 27 BUN 38* 21* 35* CREATININE 3.90* 2.31* 3.57* GLUCOSE 362* 152* 281* CALCIUM 7.2* 7.0* 7.9* MG 2.2 2.0 2.0 PHOS 4.5 2.8 3.4 ANIONGAP 6 5 4 Diagnostic Studies: CT head 08/12: IMPRESSION: 1. Interval resolution of tiny right subdural hematoma. 2. Bilateral mastoiditis and left otitis media, new compared to 07/26/2024. CXR 08/12: IMPRESSION: Suspect mild pulmonary edema with small pleural effusions. * Mayra Almeida, SYED - SUPERVISOR WHIPPED TOPPING - 08/18/2024 12:05 PM EDT Images from the original note were not included. [facility] Wound Care PROGRESS Note Sandy Deng AGE: 63 y.o. GENDER: female : 1960 Subjective: HISTORY of PRESENT ILLNESS HPI Sandy Deng is a 63 y.o. female who presents for a wound care follow up. HPI: Pt is a 63-year-old female with past medical history significant for COPD on 4L NC at baseline, ESRD on HD, T1DM, and recent admission to ICU for septic shock and subdural hematoma who presents to the ED today in respiratory distress. Wound Care consulted for pressure injury. Patient resting in bed at time of visit. Spouse and tech present at bedside. Treatment completed bywound care service. PAST MEDICAL HISTORY Past Medical History: Diagnosis Date COPD (chronic obstructive pulmonary disease) (HCC) Diabetic neuropathy (HCC) Hyperlipidemia Myocardial infarct (HCC) Stage 4 chronic kidney disease (HCC) Type 1 diabetes (HCC) PAST SURGICAL HISTORY Past Surgical History: Procedure Laterality Date CORONARY ANGIOPLASTY WITH STENT PLACEMENT CORONARY ANGIOPLASTY WITH STENT PLACEMENT FAMILY HISTORY No family history on file. SOCIAL HISTORY Social History Tobacco Use Smoking status: Never Smokeless tobacco: Never ALLERGIES No Known Allergies MEDICATIONS No current facility-administered medications on file prior to encounter. Current Outpatient Medications on File Prior to Encounter Medication Sig Dispense Refill albuterol 108 (90 Base) MCG/ACT inhaler inhale 2 puffs by mouth and INTO THE LUNGS every 6 hours ifneeded for cough aspirin 81 MG EC tablet Take 1 tablet by mouth daily. Breztri Aerosphere 160-9-4.8 MCG/ACT aerosol busPIRone (Buspar) 7.5 MG tablet Take 1 tablet by mouth 2 times daily. Cholecalciferol ([facility] Vitamin D3) 25 MCG (1000 UT) chewable tablet Chew. clopidogrel (Plavix) 75 MG tablet Take 1 tablet by mouth daily. Continuous Glucose Sensor (Dexcom G6 Sensor) misc Continuous Glucose Transmitter (Dexcom G6 transmitter) misc fluticasone (Flonase) 50 MCG/ACT nasal spray Administer 2 sprays into each nostril daily. Shake gently. Before first use, prime pump. After use, clean tip and replace cap. gabapentin (Neurontin) 100 MG capsule Take 2 capsules (200 mg) by mouth 2 times daily. guaiFENesin (Robitussin) 100 MG/5ML liquid Take 10 mL (200 mg) by mouth every 4 hours as needed forcough or congestion for up to 10 days. insulin glargine (Lantus) 100 UNIT/ML injection Inject 3 Units under the skin Nightly. metoprolol tartrate (Lopressor) 50 MG tablet Take 1 tablet (50 mg) by mouth 2 times daily. mirtazapine (Remeron) 7.5 MG tablet Take 1 tablet by mouth Nightly. [] nitrofurantoin, macrocrystal-monohydrate, (Macrobid) 100 MG capsule Take 1 capsule (100 mg) by mouth 2 times daily for 3 doses. Prolia 60 MG/ML solution prefilled syringe SPS 15 GM/60ML suspension TAKE 30 GRAMS BY MOUTH EVERYDAY FOR ONE DAY Trelegy Ellipta 200-62.5-25 MCG/ACT aerosol powder REVIEW OF SYSTEMS Pertinent items are noted in HPI. Objective: BP 126/57 Pulse 67 Temp 36.5 C (97.7 F) Resp 18 Ht 1.676 m (5' 6) Wt 49.2 kg (108 lb 7.5oz) SpO2 99% BMI 17.51 kg/m PHYSICAL EXAM General appearance: in no apparent distress, well developed and well nourished, and in no respiratory distress and acyanotic Skin: warm and dry Pulmonary: Normal effort, no respiratory distress, no cyanosis Left 4th toe: 0.5 x 0.3 x UTD cm. Small intact dry scab present with no drainage noted, no odor or SOI. [place] wound dry with improving ecchymosis present. Stable (Photo 08/16/24) LABS CBC: Lab Results Component Value Date WBC 4.5 08/18/2024 HGB 9.2 (L) 08/18/2024 HCT 29.1 (L) 08/18/2024 MCV 92.1 08/18/2024 PLT 111 (L) 08/18/2024 BMP: Lab Results Component Value Date NA 130 (L) 08/18/2024 K 3.8 08/18/2024 CL 99 08/18/2024 CO2 27 08/18/2024 PHOS 3.4 08/18/2024 BUN 35 (H) 08/18/2024 CREATININE 3.57 (H) 08/18/2024 PT/INR: No results found for: PROTIME, INR Prealbumin: No results found for: PREALBUMIN Albumin:No components found for: LABALBU Sed Rate:No results found for: SEDRATE Micro: No components found for: BC Assessment/Plan: Left 4th toe: Abrasion -cleanse with NS, apply skin prep barrier wipe daily and PRN, leave ARTI 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 Any questions or concerns please secure chat [facility] wound/ostomy. Thank you for the consult! I personally obtained the cantrell and critical portions of the history and physical exam. I reviewed the labs, imaging studies, and electronic medical record. I reviewed the chart documentation and discussed the patient with treatment team members. I have edited the note to reflect my clinical findingsand my assessment and plan. Please note, the time of this note does not reflect the time I saw thispatient today, but the time of this documentaton. Portions of this note including HPI, ROS, impression/plan, and examination may have been copied forward from admission to today as to provide important historical information essential in contributing to medical decision making. Documentation has been reviewed and edited as necessary to support clinical decision making for today's visit and to reflect my own independent evaluation of this patient. Decision making for today's visit and to reflectmy own independent evaluation of this patient. Cosigned by Alex Duff DO at 08/23/2024 4:45 PM EDT * Janell Booker MD - 08/18/2024 6:54 AM EDT ICU Progress Note Name: Sandy Deng : 1960(63 y.o.) Date: 08/18/24 Team: MICU Attending: Dr. Adames Subjective: Hospital Summary: Sandy Deng is a 63-year-old female with past medical history significant for COPD on 4L NC at baseline, ESRD on HD, T1DM, and recent admission to ICU for septic shock and subdural hematoma who presents to the [facility] respiratory distress. Patient had been recently discharged 2 days prior to [facility], and was found altered, nasal cannula taken off, and pulse ox at 80%. In the ED patient's mental status was improving on nonrebreather but VBG revealed pH of 7.09, with pCO2 at 101. Patient was placed on NIV and transferred to ICU for further management of hypercapnic respiratory failure. . Labs were significant for no leukocytosis, proBNP greater than 30,000, negative lactic acid. CXR demonstrates mild pulmonary edema with small pleural effusions, looked significantly improved from last admission. Suspect the acute on chronic hypoxic and hypercarbic respiratory failure 2/2 to COPD flaring post COVID 19 infection during previous admission. Now off NIV. Increased scheduled duonebs as the pt likely has high mucous burden, resumed dulera. Initiated slow prednisone taper. Blood glucose has been increasing, has required adjustment of insulin regimen. ID following, Zosyn discontinued. Pt received one time vanc dose and we are obtaining repeat blood cultures due to possible contaminant with staph epi (positive in 1/2 cultures). Nephro following ESRD on HD, improvedacidosis with this. Noted thrombocytopenia which is improving, likely acute illness related, HIT antibody negative. Pt stable for GMF at this time. Interval Events: No acute events overnight. This morning pt reports feeling more congested but not as SOB. Overall comfortable and did well in PT/OT yesterday given recent extended hospitalization. Scheduled Meds: aspirin, 81 mg, Oral, Daily atorvastatin, 20 mg, Oral, Nightly busPIRone, 7.5 mg, Oral, BID clopidogrel, 75 mg, Oral, Daily fluticasone, 2 spray, Each Nostril, Daily gabapentin, 200 mg, Oral, BID guaiFENesin, 600 mg, Oral, BID heparin, 5,000 Units, SubCUTAneous, 2 times per day insulin glargine, 2 Units, SubCUTAneous, Nightly insulin lispro, 0-12 Units, SubCUTAneous, TID WC insulin lispro, 6 Units, SubCUTAneous, TID WC ipratropium-albuterol, 3 mL, Nebulization, 4x daily lisinopril, 2.5 mg, Oral, Daily metoprolol tartrate, 25 mg, Oral, BID mirtazapine, 7.5 mg, Oral, Nightly mometasone-formoterol, 2 puff, Inhalation, BID pantoprazole, 40 mg, Oral, Nightly polyethylene glycol (PEG) 3350, 17 g, Oral, Daily predniSONE, 30 mg, Oral, Daily Followed by [START ON 08/20/2024] predniSONE, 20 mg, Oral, Daily Followed by [START ON 08/23/2024] predniSONE, 10 mg, Oral, Daily Followed by [START ON 08/26/2024] predniSONE, 5 mg, Oral, Daily QUEtiapine, 25 mg, Oral, Nightly [Held by provider] tiotropium, 2 puff, Inhalation, Daily Continuous Infusions: Objective: Last Vitals: BP MAP 144/59 (08/17/242031) 83 (08/17/242031) Arterial BP MAP (na) (08/13/24 0632) Temp 37.4 C (99.3 F) (08/17/242031) Pulse 77 (08/17/242031) Resp 18 (08/17/242031) SpO2 91 % (08/17/242031) Weight 108 lb 7.5 oz (49.2 kg) (08/18/24420) BMI Body mass index is 17.51 kg/m . I/O: 08/17 700 - 08/18 659 In: 579 [P.O.:450; I.V.:129] Out: 25 [Urine:25] Ventilator: Resp Rate (Set): 14 FiO2 (%): 30 % Inspiratory Time (sec): 0.7 sec Oxygen Delivery: O2 Flow Rate (L/min): 4 L/min Invasive Lines / Tubes / Drains: Peripheral IV 08/12/24 Right Antecubital (Active) Number of days: 5 Peripheral IV 08/13/24 Anterior;Right Forearm (Active) Number of days: 5 Hemodialysis Cath Double Lumen 08/12/24 Right Tunneled catheter Internal jugular (Active) Number of days: 5 Central Line Indication: Hemodialysis Johnson Indications: NA - patient does not have a Johnson catheter Restraints: Restraints Non-Violent Or Non-Self Destructive Aug 13, 2024 1:02 Pm Edt NA - patient is not restrained. Wounds: Wound/Incision 08/12/24 Other (comment) Toe - fourth Anterior;Left (Active) Date First Assessed/Time First Assessed: 08/12/24 1200 Present on Original Admission: Yes Primary Wound Type: (c) Other (comment) Location: Toe - fourth Wound Location Orientation: Anterior;Left Constitutional: General Appearance []WDWN []Obese []Cachectic [x]Thin []Ill Eyes: Inspection of Pupils/Irises Pupils round and react: [x]Yes []No Sclera: []Icteric [x]Non-Icteric Inspection of Conjunctiva/Lids Conjunctiva: []Injected [x]Non-Injected Lids: [x]Intact []Lesion Present ENT/Mouth: External Inspection of ears/nose [x] Normal [] Scar/Lesion/Mass Inspection of teeth/lips/gums Dentition: [x][place] Teeth []Dentures Lips/Gums: [x]Intact []Lesion Present Mucosa: [x][place] (noted dry blood in mouth) []Moist [x]Dry Neck: External Appearance Overall Appearance: [x]Normal []Lesion/Mass/Crepitus Present Trachea midline: [x]Yes []No Thyroid []Normal []Enlarged []Tender []Mass []Absent Respiratory: Respiratory effort []Labored [x]Non-Labored [] Mechanically-Ventilated Auscultation []Clear []Crackles []Wheezes [x][place] Cardiovascular: Auscultation Rate: [x]Regular []Irregular []Tachycardia []Bradycardia Rhythm: [x]Regular []Irregular Murmur: []Present [x]Absent Extremities Peripheral Edema: []Present [x]Absent Varicosities: []Present [x]Absent Gastrointestinal: Abdomen Palpation: [x]Soft []Firm []Tender [x]Non-Tender []Distended [x]Non-distended Mass: []Present [x]Absent Bowel Sounds: [x]Present []Absent Hernia: []Present [x]Absent Liver/Spleen: []Hepatosplenomegaly [x]Organomegaly Absent Musculoskeletal: Inspection of Digits and Nails Cyanosis: []Present [x]Absent Clubbing: []Present [x]Absent Ischemia: []Present [x]Absent Infection: []Present [x]Absent Extremities ROCHE Equally: Except ([]RUE []RLE []LUE []LLE) Strength/Tone: Intact and Normal ([x]RUE [x]RLE [x]LUE [x]LLE) Skin: Inspection [x]Normal []Rash [x]Lesion (of toe, wound following) []Ulcer Palpation [x]Warm []Cool [x]Dry []Clammy []Nodules []Induration []Skin-tightening Cap-Refill: [] <3 sec [] >3 seconds (delayed) Neurologic: GCS EYE: 4 - Opens spontaneously GCS MOTOR: 6 - Obeys commands for movement GCS VERBAL: 5 - Oriented to person, place, time Total GCS: 15 [x] Sensation grossly intact Psych: Mental Status Alert: [x]Yes [] No Oriented: []x0 []X1 []X2 [x]x3 Mood/Affect []Normal []Flat []Agitated []Depressed []Anxious [x]Calm []Sedated [x]NAD [facility] within last 24 hours- BMP: Recent Labs 08/16/2433808/17/2422208/18/24416 NA 131* 132* 130* K 4.1 3.6 3.8 CL 98 100 99 CO2 27 28 27 BUN 38* 21* 35* CREATININE 3.90* 2.31* 3.57* CALCIUM 7.2* 7.0* 7.9* MG 2.2 2.0 2.0 PHOS 4.5 2.8 3.4 LFTs:No results for input(s): AST, ALT, PROT, ALBUMIN, BILITOT, BILIRUBINU, ALKPHOS, LIPASE in the last 72 hours. Glucose: Recent Labs 08/16/2433808/16/24 0829 08/16/24 1238 08/16/24 1710 08/16/24 2004 08/17/24 0223 08/17/24 0833 08/17/24 1133 08/17/24 1635 08/17/24202008/18/24416 GLUCOSE 362* -- -- -- -- 152* -- -- -- -- 281* POCGLU -- 405* 350* 163* 174* -- 286* 213* 112* 178* -- Procal: No results for input(s): PROCAL in the last 72 hours. CBC: Recent Labs 08/16/2433808/17/2422208/18/24416 WBC 4.8 4.5 4.5 HGB 9.7* 9.1* 9.2* HCT 30.0* 28.7* 29.1* PLT 104* 105* 111* MCV 91.5 91.7 92.1 RDW 15.8* 15.8* 15.7* ABGs: No results for input(s): PHART, NGY0XOI, PO2ART, OSI6BQQ, SO2ART, F8IAXLAE in thelast 72 hours. Lactic Acid: No results for input(s): LACTATE in the last 72 hours. INR: No results for input(s): INR in the last 72 hours. Cardiac Injury Profile: No results for input(s): CKTOTAL, CKMB, TROPONINI in the last 72 hours. Labs in Last 3 months: Lab Results Component Value Date TSH 3.472 07/26/2024 INR 1.0 08/13/2024 Microbiology- Urine Cx: Lab Results Component Value Date URINECX >100,000 CFU/mL Abbi albicans (A) 08/13/2024 Blood Cx: Lab Results Component Value Date BLOODCX No growth at 72 hours 08/14/2024 Sputum Cx: Lab Results Component Value Date RESPCULT Rare respiratory keven present. 07/27/2024 RESPCULT Few Staphylococcus aureus (A) 07/27/2024 Gram Stain: Lab Results Component Value Date LABGRAM (A) 07/27/2024 Many Polymorphonuclear leukocytes per low power field LABGRAM Few Epithelial cells per low power field (A) 07/27/2024 LABGRAM Moderate Gram positive cocci (A) 07/27/2024 PNA PCR: Lab Results Component Value Date HUMANMETAPNE Not Detected 08/13/2024 COVID19: No results found for: COVID19 Legionella Ag: Lab Results Component Value Date LEGIONELLAPN Not Detected 07/27/2024 Strep Ag: No results for input(s): STREPPNEUMO in the last 72 hours. Imaging- No recent imagine in past 24 hrs Assessment and Plan: Principal Problem: Hypercapnic respiratory failure (HCC) Assessment: Acute hypercapnic and hypoxic respiratroy failure - at baseline Acute metabolic encephalopathy-resolved T1DM w/ hyperglycemia ESRD on HD Normocytic Anemia Demand Ischemia MRSE positive in 1/2 blood cultures- likely contamination Pancytopenia - improving Hx recent subdural hematoma- resolved Chronic mastoiditis Candiduria Plan: Continue 4L baseline oxygen, pulmonary consulted to follow on GMF Continue prednisone taper: 30mg 3 days, 20mg 3days, and 10mg 3 days. T1DM poorly controled glucose, on steroid taper: Currently medium dose SS, 2 units lantus nightly, 6 units lispro with meals, on carb controlled diet Glucose better controled with prandial insulin addition, will continue to monitor as steroid taper may require insulin adjustments Chest congestion: duonebs scheduled q6h. Continue mucinex. Encourage oral hydration. RT should not to hold any treatment/medications even if pt is not actively wheezing on exam withoutdiscussing with pulmonary ID following peripherally: low suspicion for active infection. Not on abx. Recent hx of septic shock 2/2 CTX-M pseudomonas and staph aureus PNA with COVID- 19 infection Chronic mastoiditis: chronic tinnitus, no localized pain- doubt acute infection. No need to treat. If worsens clinically, consider ENT evaluation. Candiduria: asymptomatic, likely from perineal region, no need for treatment at this time MRSE positive in 1/2 blood cultures- contamination vs infection, collected repeat blood cultures (no growth at 72 hrs), gave one time dose vancomycin Nephrology following, pt on HD Demand ischemia: pt has hx of stent and NSTEMI, elevated troponin's looks to be stable around 0.070, discontinued trop trend on 08/13 Normocytic anemia, Hgb stable, pt has been hospitalized multiple times over past month likely contributing to decreased Hgb, no acute bleed suspected, required 2 units pRBC this admission PT/OT consults placed, will appreciate recommendations as pt would like her to go home but is hesitant if she has trouble ambulating PT and OT recommended IPR on discharge, contacted onsite case manager for prior auth timeline for discharge to [place] [facility] Spoke with pt who would like to meet with SW or onsite case manager to discuss insurance coverage for dialysis before pt is discharged from hospital. Encourage ambulation GI Prophylaxis: Pantoprazole PO DVT Prophylaxis: Heparin subcutaneous Disposition: Transfer to [facility], insurance auth started yesterday for [facility], expect it to take 2-3 days Cosigned by Kemar Adames DO at 08/18/2024 8:23 PM EDT Associated attestation - Kemar Adames DO - 08/18/2024 8:23 PM EDT I have personally performed a [id number] diagnostic evaluation on this patient on date of uvoubkp07/16/24. History, labs, imaging studies, and electronic medical record have been reviewed by me. This note documented by the []Critical Care Fellow [x]warehouse incentive selector []TONJA reflects my history, exam, and medical decision making. I have reviewed and agree with the care plan. Changes were made in the orders as necessary. ROS documentation was reviewed and negative unless otherwise stated in HPI. Additional pertinent interval history, ROS, and physical exam findings: AdmitDate = 08/12/2024 LOS: 6 Chief Complaint Patient presents with Altered Mental Status Pt became dizzy this morning and SpO2 was noted to be 80s on RA. Pt was placed on 35% venti mask. Pt is altered. Awakens to voice and follows simple commands ON Event(s): No Continues to tolerate HD. ETT: No NIV/HHFNC/Salter: No Sedation: No Pressors: No Assessment: Acute on chronic hypoxemic respir failure -- back to baseline Encephalopathy -- resolved. T1DM w/ hyperglycemia ESRD/HD Plan: Continue home O2. Nephro following for HD recs. Begin outpt HD planning. Sugars remain high. Maintain insulin doses at current levels as steroids will continue to be weaned. Follow trends. In my professional opinion this pt remains critically ill based on the aforementioned assessment/plan: No Lifethreatening disease process: No Unstable organ failure: No Active vent mgmt: No Active management of life support system(s): No Disposition: Stable to transfer to floor. Critical Care Time: n/a Or Noncritical Care Time: 35min Total time caring for this patient including direct patient contact, review of data including imaging and labs, discussions with other team members and physicians, excluding procedures. * Jennifer Saldaña - 08/17/2024 2:30 PM EDT Images from the original note were not included. PHYSICAL THERAPY [facility] Initial Evaluation Name/MRN: Sandy Deng ([id number]) Evaluation Date: 08/17/2024 Date of : 1960 Admission Date: 08/12/2024 12:53 PM Age: 63 y.o. Room/Bed: T3-321/T3-321 A Discharge Recommendation: Continue to assess pending progress, IP Rehab Equipment Needed: No Other: pt owns FWW and straight cane Assessment IMPRESSION: pt presents with respiratory failure and hypoxia with altered mental status. Pt presents with impaired functional mobility, decreased strength, balance, and endurance. Pt is aware of needfor assist and need for safety stating she is shaky with ambulation and feels weak. Pt up in chair on arrival, bed mobility not performed. Pt requires min assist and set up for scooting back in chairdue to fatigue following session. Pt requires min assist and set up for transfers and mod assist for ambulation with FWW. Pt unable to divide attention and follow commands while ambulating. RecommendIPR on discharge. Good potential to tolerate 15 hours of therapies weekly. Admitting Diagnosis: hypercapnic, respiratory failure, hypoxia Prognosis: good Performance Deficits /Impairments: Decreased Functional Mobility, Decreased ADL status, Decreased Strength, Decreased Endurance, Decreased Balance, and Decreased Posture Decision Making: Medium Complexity Subjective Pt up in chair on arrival and agreeable to physical therapy. Pt reports no pain, appears lethargic and has delayed verbal responses and delayed initiation of tasks. Pt present and states pt at [facility] for one night and had respiratory event. Was not seen for therapies there yet but plan to go back for continued therapies. Pain: Pt denies any current pain. Past Medical History: Past Medical History: Diagnosis Date COPD (chronic obstructive pulmonary disease) ([facility]) Diabetic neuropathy ([facility]) Hyperlipidemia Myocardial infarct ([facility]) Stage 4 chronic kidney disease ([facility]) Type 1 diabetes ([facility]) Past Surgical History: Past Surgical History: Procedure Laterality Date CORONARY ANGIOPLASTY WITH STENT PLACEMENT CORONARY ANGIOPLASTY WITH STENT PLACEMENT Admission Diagnosis: Patient Active Problem List Diagnosis Date Noted Anxiety disorder due to medical condition 08/12/2024 Atherosclerosis of coronary artery 08/12/2024 Chest pain 08/12/2024 Chronic constipation 08/12/2024 Cigarette smoker 08/12/2024 [place]'s sign present 08/12/2024 Depressive disorder 08/12/2024 Diabetic polyneuropathy (CMS/HCC) ([facility]) 08/12/2024 Dizziness 08/12/2024 Gastroparesis 08/12/2024 Hypoglycemia 08/12/2024 Injury of kidney 08/12/2024 Intermittent palpitations 08/12/2024 Intractable vomiting with nausea 08/12/2024 Respiratory failure with hypoxia ([facility]) 08/12/2024 Skin lesion of foot 08/12/2024 Hypercapnic respiratory failure ([facility]) 08/12/2024 SDH (subdural hematoma) ([facility]) 07/26/2024 COPD (chronic obstructive pulmonary disease) ([facility]) 07/26/2024 Type 1 diabetes mellitus with kidney complication ([facility]) 07/26/2024 Myocardial infarction ([facility]) 07/26/2024 Hyperlipidemia 07/26/2024 Diabetic neuropathy associated with type 1 diabetes mellitus ([facility]) 07/26/2024 Stage 4 chronic kidney disease (HCC) 07/26/2024 Acute renal failure (HCC) 07/26/2024 Anemia 07/26/2024 Hypocalcemia 07/26/2024 Multiple pulmonary nodules 05/17/2024 Underweight 04/14/2024 Solitary pulmonary nodule 02/06/2024 Wheezing 10/29/2023 History of coronary artery stent placement 02/04/2018 Nicotine dependence 01/08/2017 Hypertension 01/08/2017 Diabetic ketoacidosis (CMS/HCC) (HCC) 12/30/2012 Medical Precautions: No active isolations Proper PPE donned/doffed in accordance with facility standards. Fall Risk: [place] Fall Risk Score: 85 (High Risk) Precautions/Restrictions: Lines/Drains/Airways: PIV, tele, 3L NC Fall Precautions Family/Caregiver Present: spouse Overall Cognitive Status: WFL Overall Orientation Status: Vision: no visual deficits Hearing: normal Social/Functional History Patient admitted from home. Lives With: Spouse Type of Home: single family home Home Layout: Two Level Home, first floor liveable Home Access: Stairs to Enter with Rails (# of stairs: 3) Bathroom Shower/Tub: Walk in Shower Toilet: Standard Home Equipment: front wheeled walker and cane Homemaking Responsibilities: Independent Receives Help From: Spouse Active Aad[employer] Plans Staff Officer: N/A Prior Level of Function Prior Level of ADL Function: Independent Prior Level of Mobility: Independent; Device: Straight Cane Prior Level of Transfers: Independent Objective Lower Extremity Assessment AROM: WFL PROM: WFL Strength: Lower Extremity Strength Right Left Hip Flexion 3+ 3+ Hip Abduction Hip Extension Hip External Rotation (ER) Hip Internal Rotation (IR) Knee Extension 4 4 Knee Flexion 4 4 Ankle Dorsiflexion (DF) 4 4 Ankle Plantarflexion (PF) Inversion Eversion Sensation: WFL Balance: Balance During Session: Posture: fair Sitting - Static: Modified Independent, increased time to complete supported sit to unsupported sitin chair Sitting - Dynamic: Supervision, cueing required for initiation, simple commands Standing - Static: Min Assist Standing - Dynamic: Mod Assist Bed Mobility: Scooting: Min Assist, after setup Transfers Sit to stand: Min Assist Stand to sit: Min Assist Ambulation Ambulation 1 Assistive device(s) used: Front wheeled walker Assist level: Mod Assist Distance (ft): 8 Quality of gait: antalgic, shuffling, narrow JARED, slow amanda, path deviations, instability through all phases, greater instabilities and incoordination noted in turning Ambulation 2 Assistive device(s) used: Front wheeled walker Assist level: Mod Assist Distance (ft): 4 Quality of gait: antalgic, shuffling, narrow JARED, slow amanda, path deviations, instability through all phases, pt takes large steps to complete task quickly. Pt sat in chair with back unsupported x 3 minutes. Pt completed LE exercise with supervision and cueing to not lean back (LAQ x3 ea). Pt completes ambulation 1 with inability to divide attention and answer simple questions during ambulation. Pt sits in chair x2 minutes with back supported and educated on breathing techniques for chest expansion. Pt completed x5 incentive spirometer. Pt completes 3x sit to stand throughout session (first attempt SBA and pt unable to achieve full stand). Instability noted in standing, increased work of breathing, and pt reported fatigue. Outcome Measures AM-PAC How much HELP from another person do you currently need Turning from your back to your side while in a flat bed without using bedrails?: A Little Moving from lying on your back to sitting on the side of a flat bed without using bedrails?: A Little Moving to and from a bed to a chair (including a wheelchair)?: A Little Standing up from a chair using your arms (wheelchair or bedside chair)?: A Little Walking in a hospital room?: A Lot Stair climbing assessed?: No AM-PAC Inpatient Mobility Raw Score (No Stairs) : 14 [facility] Score: Walked 10 steps or more (i.e. walked to restroom) Plan Pt would benefit from skilled acute PT services to address Strengthening, Gait Training, Balance Training, Functional Mobility Training, Endurance Training, Safety Education and Training, and Stair Training. Frequency: 3x/week for 4 weeks Barriers: Impaired balance, Lower extremity weakness, Upper extremity weakness, Decreased endurance, and Stairs at home Safety/Education Safety Safety Devices in place: All fall risk precautions in place, call light within reach, left in chair, chair alarm in place, gait belt, patient at risk for falls, nurse notified, and no alarms engaged upon entry Restraints: No Education Education Given To: patient Education Provided: PT Role, PT Goals, Gait Training, Plan of Care, Home Exercise Program, TransferTraining, Energy Conservation, Fall Prevention Education, Discharge Recommendations, Benefits of Increasing Activity, and Breathing Techniques Education Method: Verbal Barriers to Learning: None Education Outcome: Verbalized Understanding Goals Patient Stated Goal: pt would like to get stronger Encounter Problems Encounter Problems (Active) Balance Patient will maintain dynamic standing balance for 5 minutes with SBA in order to demonstrate decreased risk of falling. Start: 08/17/24 Expected End: 09/14/24 Patient will maintain dynamic sitting balance for 5 minutes with modified independence in order to demonstrate improved postural control and prepare for out of bed mobility. Start: 08/17/24 Expected End: 09/14/24 Mobility Patient will ambulate 50 feet with min assist and rolling walker in order to improve safety and independence with mobility. Start: 08/17/24 Expected End: 09/14/24 Patient will ascend and descend 5 stairs with least restrictive device and min assist in order to safely negotiate home. Start: 08/17/24 Expected End: 09/14/24 Transfers Patient will perform bed mobility with supervision in order to improve independence and prepare forout of bed mobility. Start: 08/17/24 Expected End: 09/14/24 Patient will complete functional transfer with rolling walker with SBA in order to prepare for ambulation. Start: 08/17/24 Expected End: 09/14/24 Therapy Time Individual Co-treatment Time In 1311 Time Out 1334 Minutes 23 Timed Code Treatment Minutes: 8 Minutes (1 FA) JEY Caldwell Patient's Physical Therapy Plan of Care supervision is transferred to a [facility] Physical Therapist. Goals and/or treatment plan was established in collaboration with patient/family/other representatives. Cosigned by Maranda Greer PT at 08/17/2024 3:14 PM EDT * Jamey Muro OT - 08/17/2024 10:28 AM EDT Images from the original note were not included. OCCUPATIONAL THERAPY [facility] Initial Evaluation Name/MRN: Sandy Deng ([id number]) Evaluation Date: 08/17/2024 Date of : 1960 Admission Date: 08/12/2024 12:53 PM Age: 63 y.o. Room/Bed: T3-321/T3-321 A Discharge Recommendation: IP Rehab Other: Continue to assess pending progress. Assessment IMPRESSION: Pt presented with respiratory failure, hypoxia, and AMS upon admission. Pt had recent hospital admission for septic shock and subdural hematoma, pt went to [facility] for 2 days and thenended up in ER for this admission. Pt is independent prior to first admission and requires assistance prior to this admission at [facility]. Per pt and , therapy only performed the initial evaluations, therapy hasn't started yet. Pt is currently limited by decreased endurance and increased SOB with exertion as well as diminished strength and overall safety. Pt is currently Min A for all functional mobility and transfers w/FWW and Min A for LB and UB ADL's. Recommending IPR at discharge as pt is unsafe to return home, is motivated, and can tolerate 3 hours of daily therapy. Pt will continue to benefit from acute OT services while admitted to increase functional independence. Admitting Diagnosis: respiratory failure, hypoxia, and AMS Performance Deficits /Impairments: Decreased Functional Mobility, Decreased ADL status, Decreased Strength, Decreased Endurance, Decreased Balance, and Decreased Posture Prognosis: Fair Decision Making: Medium Complexity Subjective RN cleared for therapy. Pt supine in bed and present upon OT arrival; agreeable to OT eval.Pt sitting in recliner at end of session with call light within reahc, chair alarm on, and RN notified. Pain: Pt denies any current pain. Past Medical History: Past Medical History: Diagnosis Date COPD (chronic obstructive pulmonary disease) (HCC) Diabetic neuropathy (HCC) Hyperlipidemia Myocardial infarct (HCC) Stage 4 chronic kidney disease (HCC) Type 1 diabetes (HCC) Past Surgical History: Past Surgical History: Procedure Laterality Date CORONARY ANGIOPLASTY WITH STENT PLACEMENT CORONARY ANGIOPLASTY WITH STENT PLACEMENT Admission Diagnosis: Patient Active Problem List Diagnosis Date Noted Anxiety disorder due to medical condition 08/12/2024 Atherosclerosis of coronary artery 08/12/2024 Chest pain 08/12/2024 Chronic constipation 08/12/2024 Cigarette smoker 08/12/2024 Adrian's sign present 08/12/2024 Depressive disorder 08/12/2024 Diabetic polyneuropathy (CMS/HCC) ([facility]) 08/12/2024 Dizziness 08/12/2024 Gastroparesis 08/12/2024 Hypoglycemia 08/12/2024 Injury of kidney 08/12/2024 Intermittent palpitations 08/12/2024 Intractable vomiting with nausea 08/12/2024 Respiratory failure with hypoxia ([facility]) 08/12/2024 Skin lesion of foot 08/12/2024 Hypercapnic respiratory failure ([facility]) 08/12/2024 SDH (subdural hematoma) ([facility]) 07/26/2024 COPD (chronic obstructive pulmonary disease) ([facility]) 07/26/2024 Type 1 diabetes mellitus with kidney complication ([facility]) 07/26/2024 Myocardial infarction ([facility]) 07/26/2024 Hyperlipidemia 07/26/2024 Diabetic neuropathy associated with type 1 diabetes mellitus ([facility]) 07/26/2024 Stage 4 chronic kidney disease ([facility]) 07/26/2024 Acute renal failure ([facility]) 07/26/2024 Anemia 07/26/2024 Hypocalcemia 07/26/2024 Multiple pulmonary nodules 05/17/2024 Underweight 04/14/2024 Solitary pulmonary nodule 02/06/2024 Wheezing 10/29/2023 History of coronary artery stent placement 02/04/2018 Nicotine dependence 01/08/2017 Hypertension 01/08/2017 Diabetic ketoacidosis ([facility]) ([facility]) 12/30/2012 Medical Precautions: No active isolations Proper PPE donned/doffed in accordance with facility standards. Fall Risk: Bunn Fall Risk Score: 85 (High Risk) Precautions/Restrictions: Lines/Drains/Airways: tele, PIV 4 L O2 via NC Family/Caregiver Present: spouse Overall Cognitive Status: Exceptions - Arousal/alertness: appropriate responses to stimuli - Following commands: follows one step commands with increased time and follows one step commands with repetition - Safety judgement: decreased awareness of need for safety - Problem solving: assistance required to correct errors made - Sequencing: requires cues for some Overall Orientation Status: Oriented x4 Social/Functional History PLOF is from first admission, pt was ar [facility] prior to this admission Patient admitted from home. Lives With: Spouse Type of Home: single family home Home Layout: Single Level Home Home Access: Stairs to Enter without Rails (# of stairs: 3) Bathroom Shower/Tub: Walk in Shower Toilet: Standard Home Equipment: front wheeled walker Homemaking Responsibilities: Independent Receives Help From: Spouse Active Aadc Plans Staff Officer: N/A Prior Level of Function Prior Level of ADL Function: Independent Prior Level of Mobility: Independent; Device: Front wheeled walker Prior Level of Transfers: Independent Pt requires assistance at [facility], information of independent is baseline prior to first admission. Objective ADLs LE Dressing: Min Assist, Pt donned socks while sitting EOB, Min A to maintain dynamic sitting balance due to fatigue and unsteadiness. Pt would require Min A for donning pants/undergarments safely due to poor dynamic standing balance. Upper Extremity Assessment AROM: WFL Pt fatigued quickly with exertion/movement requiring increased time to complete. PROM: WFL Strength: WFL grossly 3/5 Vision: no visual deficits Hearing: normal Bed Mobility Supine to sit: Min Assist Scooting: Min Assist HOB elevated, pt performs movements slowly due to fatigue and decreased endurance. Transfers/Functional Mobility Sit to stand: Min Assist Stand to sit: Min Assist Stand step: Min Assist Standing balance: Min Assist Pt performed STS from EOB x 2 trials, pt's performed first STS then required a seated rest break due to SOB and fatigue. Pt noted to pull onto FWW when performing transfers, educated pt on safety with device management. Pt took 4-5 steps from bed to recliner with Min A and FWW due to unsteadiness. Device(s) used: Front wheeled walker AM-PAC AM-PAC Inpatient Daily Activity Raw Score: 20 ADL Inpatient CMS G-Code Modifier: CJ Plan Pt would benefit from skilled acute OT services to address Strengthening, Balance Training, Self-Care/ADL Training, Functional Mobility Training, Endurance Training, Safety Education and Training, and Equipment Evaluation/Education. Frequency: 4x/week for 4 weeks Barriers: Impaired balance, Lower extremity weakness, Upper extremity weakness, Decreased endurance, and Limited safety awareness Safety/Education Safety Safety Devices in place: call light within reach, left in chair, chair alarm in place, gait belt, patient at risk for falls, and nurse notified Restraints: No Education Education Given To: patient and spouse Education Provided: OT Role, Plan of Care, ADL Adaptive Strategies, Transfer Training, Energy Conservation, Family Education, Equipment, Fall Prevention Education, and Discharge Recommendations Education Method: Verbal Barriers to Learning: None Education Outcome: Verbalized Understanding and Continued Education Needed Goals Patient Stated Goal: To get stronger. Encounter Problems Encounter Problems (Active) Balance Patient will maintain dynamic standing balance for 5-10 minutes with SBA in order to demonstrate decreased risk of falling. Start: 08/17/24 Expected End: 09/14/24 Bathing Patient will utilize adaptive techniques to bathe body with SBA Start: 08/17/24 Expected End: 09/14/24 Dressing Upper Extremities Patient will complete upper body dressing with SBA Start: 08/17/24 Expected End: 09/14/24 Dressings Lower Extremities Patient will dress lower body with SBA Start: 08/17/24 Expected End: 09/14/24 Mobility Patient will demonstrate functional ambulation with SBA Start: 08/17/24 Expected End: 09/14/24 Toileting Patient will complete toileting tasks at standard toilet with SBA. Start: 08/17/24 Expected End: 09/14/24 Transfers Patient will complete functional transfer with least restrictive device with SBA in order to prepare for ambulation. Start: 08/17/24 Expected End: 09/14/24 Patient will perform bed mobility with SBA in order to improve independence and prepare for out of bed mobility. Start: 08/17/24 Expected End: 09/14/24 Therapy Time Individual Co-treatment Time In 0953 Time Out 1023 Minutes 30 Variance: 10 (ICU medical team present) Jamey Muro OT Patient's Occupational Therapy Plan of Care supervision is transferred to a [facility] Occupational Therapist. Goals and/or treatment plan was established in collaboration with patient/family/other representatives. * Radha Kelley RCP - 08/17/2024 9:48 AM EDT [facility] Respiratory Care Department Progress Note As part of the Respiratory Assessment Program (RAP), the following Respiratory Therapist evaluationhas been completed, including a chart review and clinical/physical assessment. Respiratory Therapist RAP Evaluation Guideline Points 0 1 2 3 4 Points Strongly Consider History Factor No Pulmonary conditions Stable Pulmonary condition(s) Surgery or Intervention that may impact Pulmonary system (at risk) Surgery or Intervention that is impacting Pulmonary system Active Exacerbation of Pulmonary Condition 4 Respiratory Pattern Regular, RR= 12-18 [place] or Increased RR= 19-24 Irregular, or RR= 25-30 SOB, talk in short sentences, or RR= 31-35 Severe SOB, accessory muscle use, one word answers, or RR>35 0 Aerosol Med(s), High Flow O2 Breath Sounds Clear Diminished in 1 lobe Diminished in <= 2 lobes Adventitious breath sounds Coarse crackles, Wheezes, or Diminished in >2 lobes 2 Aerosol Med(s), Bronchial Hygiene, Hyperinflation Cough & Sputum Strong cough, no secretion retention or production Weak cough, no secretion retention or production Weak cough, w/ production (less often than Q2hr), or secretion retention No cough, w/ secretion retention or production (less often than Q2hr) Significant secretion production (more often than Q2hr) or mucus plug 0 Aerosol Med(s), Bronchial Hygiene, Hyperinflation Level of Activity Ambulatory Ambulatory with Assist Up in chair or edge of bed (dangle) Non-ambulatory, bedridden with active ROM Completely paralyzed or without active ROM 1 Triage 5 0-2 Triage 4 3-5 Triage 3 6-10 Triage 2 11-14 Triage 1 >=15 Total 7 Triage Score = 7 TRIAGE SCORING - SUGGESTED FREQUENCIES Aerosol Therapy Bronchial Hygiene Hyperinflation Triage Score Q4h & PRN 1 Q4hWA (QID) & PRN 2 TID & PRN 3 BID & PRN 4 PRN 5 Therapy(s) Indicated Yes/No Aerosol Medication y Hyperinflation n Bronchial Hygiene n High Flow Oxygen n RT to enter/modify frequency of treatment order in EMR/EHR to match this RAP evaluation. Based on this RAP evaluation the following therapy is being initiated: Duoneb At the following frequency: TID Comments: Thank you for involving Respiratory in the care of this patient, * Janell Booker MD - 08/17/2024 5:16 AM EDT ICU Progress Note Name: Sandy Deng : 1960(63 y.o.) Date: 08/17/24 Team: MICU Attending: Dr. Adames Subjective: Hospital Summary: Sandy Deng is a 63-year-old female with past medical history significant for COPD on 4L NC at baseline, ESRD on HD, T1DM, and recent admission to ICU for septic shock and subdural hematoma who presents to the [facility] respiratory distress. Patient had been recently discharged 2 days prior to [facility], and was found altered, nasal cannula taken off, and pulse ox at 80%. In the ED patient's mental status was improving on nonrebreather but VBG revealed pH of 7.09, with pCO2 at 101. Patient was placed on NIV and transferred to ICU for further management of hypercapnic respiratory failure. . Labs were significant for no leukocytosis, proBNP greater than 30,000, negative lactic acid. CXR demonstrates mild pulmonary edema with small pleural effusions, looked significantly improved from last admission. Suspect the acute on chronic hypoxic and hypercarbic respiratory failure 2/2 to COPD flaring post COVID 19 infection during previous admission. Now off NIV. Increased scheduled duonebs as the pt likely has high mucous burden, resumed dulera. Initiated slow prednisone taper. Blood glucose has been increasing, has required adjustment of insulin regimen. ID following, Zosyn discontinued. Pt received one time vanc dose and we are obtaining repeat blood cultures due to possible contaminant with staph epi (positive in 1/2 cultures). Nephro following ESRD on HD, improvedacidosis with this. Noted thrombocytopenia which is improving, likely acute illness related, HIT antibody negative. Pt stable for GMF at this time. Interval Events: No acute events overnight. Pt received HD yesterday afternoon. This morning pt reports doing well overall, still feels chest tightness/congestion and desires to go home. Scheduled Meds: aspirin, 81 mg, Oral, Daily atorvastatin, 20 mg, Oral, Nightly busPIRone, 7.5 mg, Oral, BID clopidogrel, 75 mg, Oral, Daily fluticasone, 2 spray, Each Nostril, Daily gabapentin, 200 mg, Oral, BID heparin, 5,000 Units, SubCUTAneous, 2 times per day insulin glargine, 2 Units, SubCUTAneous, Nightly insulin lispro, 0-12 Units, SubCUTAneous, TID WC insulin lispro, 6 Units, SubCUTAneous, TID WC ipratropium-albuterol, 3 mL, Nebulization, 4x daily lisinopril, 2.5 mg, Oral, Daily metoprolol tartrate, 25 mg, Oral, BID mirtazapine, 7.5 mg, Oral, Nightly mometasone-formoterol, 2 puff, Inhalation, BID mupirocin, 1 Application, Nasal, BID pantoprazole, 40 mg, Oral, Nightly predniSONE, 30 mg, Oral, Daily Followed by [START ON 08/20/2024] predniSONE, 20 mg, Oral, Daily Followed by [START ON 08/23/2024] predniSONE, 10 mg, Oral, Daily Followed by [START ON 08/26/2024] predniSONE, 5 mg, Oral, Daily QUEtiapine, 25 mg, Oral, Nightly [Held by provider] tiotropium, 2 puff, Inhalation, Daily Continuous Infusions: Objective: Last Vitals: BP MAP 135/68 (08/17/24399) 89 (08/17/24399) Arterial BP MAP (na) (08/13/24 0632) Temp 36.3 C (97.4 F) (08/17/24399) Pulse 71 (08/17/24399) Resp 21 (08/17/24399) SpO2 100 % (08/17/24399) Weight 53.9 kg (118 lb 13.3 oz) (08/17/24 0044) BMI Body mass index is 19.18 kg/m . I/O: 08/16 0700 - 08/17 659 In: 1006 [P.O.:706; I.V.:300] Out: 300 [Urine:300] Ventilator: Resp Rate (Set): 14 FiO2 (%): 30 % Inspiratory Time (sec): 0.7 sec Oxygen Delivery: O2 Flow Rate (L/min): 4 L/min Invasive Lines / Tubes / Drains: Peripheral IV 08/12/24 Right Antecubital (Active) Number of days: 4 Peripheral IV 08/13/24 Anterior;Right Forearm (Active) Number of days: 4 Urethral Catheter Straight-tip (Active) Number of days: 4 Hemodialysis Cath Double Lumen 08/12/24 Right Tunneled catheter Internal jugular (Active) Number of days: 4 Central Line Indication: Hemodialysis Johnson Indications: NA - patient does not have a Johnson catheter Restraints: Restraints Non-Violent Or Non-Self Destructive Aug 13, 2024 1:02 Pm Edt NA - patient is not restrained. Wounds: Wound/Incision 08/12/24 Other (comment) Toe - fourth Anterior;Left (Active) Date First Assessed/Time First Assessed: 08/12/24 1200 Present on Original Admission: Yes Primary Wound Type: (c) Other (comment) Location: Toe - fourth Wound Location Orientation: Anterior;Left Constitutional: General Appearance []WDWN []Obese []Cachectic [x]Thin []Ill Eyes: Inspection of Pupils/Irises Pupils round and react: [x]Yes []No Sclera: []Icteric [x]Non-Icteric Inspection of Conjunctiva/Lids Conjunctiva: []Injected [x]Non-Injected Lids: [x]Intact []Lesion Present ENT/Mouth: External Inspection of ears/nose [x] Normal [] Scar/Lesion/Mass Inspection of teeth/lips/gums Lips/Gums: [x]Intact []Lesion Present Mucosa: [x]Pinson []Moist []Dry Neck: External Appearance Overall Appearance: [x]Normal []Lesion/Mass/Crepitus Present Trachea midline: [x]Yes []No Respiratory: Respiratory effort []Labored [x]Non-Labored [] Mechanically-Ventilated Auscultation []Clear []Crackles []Wheezes [x]Rhonchi Cardiovascular: Auscultation Rate: [x]Regular []Irregular []Tachycardia []Bradycardia Rhythm: [x]Regular []Irregular Murmur: []Present [x]Absent Extremities Peripheral Edema: []Present [x]Absent Varicosities: []Present [x]Absent Gastrointestinal: Abdomen Palpation: [x]Soft []Firm []Tender [x]Non-Tender []Distended [x]Non-distended Mass: []Present [x]Absent Bowel Sounds: [x]Present []Absent Hernia: []Present [x]Absent Liver/Spleen: []Hepatosplenomegaly [x]Organomegaly Absent Musculoskeletal: Inspection of Digits and Nails Cyanosis: []Present [x]Absent Clubbing: []Present [x]Absent Ischemia: []Present [x]Absent Infection: []Present [x]Absent Extremities ROCHE Equally: Except ([]RUE []RLE []LUE []LLE) Strength/Tone: Intact and Normal ([x]RUE [x]RLE [x]LUE [x]LLE) Skin: Inspection [x]Normal []Rash []Lesion []Ulcer Palpation [x]Warm []Cool [x]Dry []Clammy []Nodules []Induration []Skin-tightening Cap-Refill: [x] <3 sec [] >3 seconds (delayed) Neurologic: GCS EYE: 4 - Opens spontaneously GCS MOTOR: 6 - Obeys commands for movement GCS VERBAL: 5 - Oriented to person, place, time Total GCS: 15 [] Sensation grossly intact Psych: Mental Status Alert: [x]Yes [] No Oriented: []x0 []X1 []X2 [x]x3 Mood/Affect []Normal []Flat []Agitated []Depressed []Anxious [x]Calm []Sedated [x]NAD [facility] Labs within last 24 hours- BMP: Recent Labs 08/15/2462208/16/2433808/17/24222 NA 130* 131* 132* K 3.9 4.1 3.6 CL 100 98 100 CO2 22 27 28 BUN 27* 38* 21* CREATININE 2.97* 3.90* 2.31* CALCIUM 7.1* 7.2* 7.0* MG 2.1 2.2 2.0 PHOS 4.5 4.5 2.8 LFTs:No results for input(s): AST, ALT, PROT, ALBUMIN, BILITOT, BILIRUBINU, ALKPHOS, LIPASE in the last 72 hours. Glucose: Recent Labs 08/15/24 0623 08/15/24 0828 08/15/24 1134 08/15/24 1706 08/15/24 2100 08/16/24 0339 08/16/24 0829 08/16/24 1238 08/16/24 1710 08/16/24 2004 08/17/24 0223 GLUCOSE 270* -- -- -- -- 362* -- -- -- -- 152* POCGLU -- 302* 340* 368* 344* -- 405* 350* 163* 174* -- Procal: No results for input(s): PROCAL in the last 72 hours. CBC: Recent Labs 08/15/2462208/16/24 0339 08/17/24 0223 WBC 5.0 4.8 4.5 HGB 9.5* 9.7* 9.1* HCT 30.3* 30.0* 28.7* PLT 90* 104* 105* MCV 92.4 91.5 91.7 RDW 15.9* 15.8* 15.8* ABGs: No results for input(s): PHART, CKS3IPM, PO2ART, FYQ6EAT, SO2ART, V6CKTIJQ in thelast 72 hours. Lactic Acid: No results for input(s): LACTATE in the last 72 hours. INR: No results for input(s): INR in the last 72 hours. Cardiac Injury Profile: No results for input(s): CKTOTAL, CKMB, TROPONINI in the last 72 hours. Labs in Last 3 months: Lab Results Component Value Date TSH 3.472 07/26/2024 INR 1.0 08/13/2024 Microbiology- Urine Cx: Lab Results Component Value Date URINECX >100,000 CFU/mL Abbi albicans (A) 08/13/2024 Blood Cx: Lab Results Component Value Date BLOODCX No growth at 48 hours 08/14/2024 Sputum Cx: Lab Results Component Value Date RESPCULT Rare respiratory keven present. 07/27/2024 RESPCULT Few Staphylococcus aureus (A) 07/27/2024 Gram Stain: Lab Results Component Value Date LABGRAM (A) 07/27/2024 Many Polymorphonuclear leukocytes per low power field LABGRAM Few Epithelial cells per low power field (A) 07/27/2024 LABGRAM Moderate Gram positive cocci (A) 07/27/2024 PNA PCR: Lab Results Component Value Date HUMANMETAPNE Not Detected 08/13/2024 COVID19: No results found for: COVID19 Legionella Ag: Lab Results Component Value Date LEGIONELLAPN Not Detected 07/27/2024 Strep Ag: No results for input(s): STREPPNEUMO in the last 72 hours. Imaging- No recent imaging within past 24 hrs Assessment and Plan: Principal Problem: Hypercapnic respiratory failure (HCC) Assessment: Acute hypercapnic and hypoxic respiratroy failure 2/2 AECOPD in setting of chronic resp failure on 4L NC at baseline - improved Acute metabolic encephalopathy-resolved T1DM w/ hyperglycemia ESRD on HD Normocytic Anemia Demand Ischemia MRSE positive in 1/2 blood cultures- likely contamination Pancytopenia - improving Hx recent subdural hematoma- resolved Chronic mastoiditis Candiduria Plan: Continue 4L baseline oxygen, AECOPD most likely due to post-covid COPD reactive airway, pulmonary consulted to follow on F Continue prednisone taper: 40mg 3 days, 30mg 3 days, 20mg 3days, and 10mg 3 days. T1DM poorly controled glucose, on steroid taper: Currently medium dose SS, 2 units lantus nightly, 6 units lispro with meals, on carb controlled diet Glucose better controled with prandial insulin addition, will continue to monitor Chest congestion: duonebs scheduled q6h. Continue mucinex. Encourage oral hydration. RT should not to hold any treatment/medications even if pt is not actively wheezing on exam withoutdiscussing with pulmonary ID following: low suspicion for active infection. Not on abx. Recent hx of septic shock 2/2 CTX-M pseudomonas and staph aureus PNA with COVID- 19 infection Chronic mastoiditis: chronic tinnitus, no localized pain- doubt acute infection. No need to treat. If worsens clinically, consider ENT evaluation. Candiduria: asymptomatic, likely from perineal region, no need for treatment at this time MRSE positive in 1/2 blood cultures- contamination vs infection, collected repeat blood cultures (no growth at 24 hrs), gave onetime dose vancomycin Nephrology following, pt on HD Pancytopenia - improving Restarted home ASA and plavix HIT ruled out with negative antibody screen Demand ischemia: pt has hx of stent and NSTEMI, elevated troponin's looks to be stable around 0.070, discontinued trop trend on 08/13 Normocytic anemia, Hgb stable, pt has been hospitalized multiple times over past month likely contributing to decreased Hgb, no acute bleed suspected, required 2 units pRBC this admission PT/OT consults placed, will appreciate recommendations as pt would like her to go home but is hesitant if she has trouble ambulating Spoke with pt who would like to meet with SW or onsite case manager to discuss insurance coverage for dialysis before pt is discharged from hospital. Encourage ambulation. GI Prophylaxis: Pantoprazole PO DVT Prophylaxis: Heparin subcutaneous Disposition: Transfer to [facility] Cosigned by Kemar Adames DO at 08/17/2024 7:07 PM EDT Associated attestation - Kemar Adames DO - 08/17/2024 7:07 PM EDT I have personally performed a [id number] diagnostic evaluation on this patient on date of biajzhg80/15/24. History, labs, imaging studies, and electronic medical record have been reviewed by me. This note documented by the []Critical Care Fellow [x]warehouse incentive selector []TONJA reflects my history, exam, and medical decision making. I have reviewed and agree with the care plan. Changes were made in the orders as necessary. ROS documentation was reviewed and negative unless otherwise stated in HPI. Additional pertinent interval history, ROS, and physical exam findings: AdmitDate = 08/12/2024 LOS: 5 Chief Complaint Patient presents with Altered Mental Status Pt became dizzy this morning and SpO2 was noted to be 80s on RA. Pt was placed on 35% venti mask. Pt is altered. Awakens to voice and follows simple commands ON Event(s): No Pt feels ok. Has no new complaints. PT at bedside. ETT: No NIV/HHFNC/Salter: No Sedation: No Pressors: No Assessment: Acute on chronic hypoxemic respir failure -- back to baseline Encephalopathy -- resolved. T1DM w/ hyperglycemia ESRD/HD Plan: Pt remains stable for GMF tx. Continue pred taper. Continue current insulin doses. Monitor sugars during prednisone dose chagnes. Continue HD per nephro. In my professional opinion this pt remains critically ill based on the aforementioned assessment/plan: No Lifethreatening disease process: No Unstable organ failure: No Active vent mgmt: No Active management of life support system(s): No Disposition: Stable to transfer to floor. Critical Care Time: n/a Or Noncritical Care Time: 35min Total time caring for this patient including direct patient contact, review of data including imaging and labs, discussions with other team members and physicians, excluding procedures. * Jose Carlos Medrano MD - 08/16/2024 1:41 PM EDT Images from the original note were not included. NEPHROLOGY SOAP NOTE Visit date: 08/16/24, 1:41 PM Patient: Sandy Deng Room number: [id number] [id number] Date of Admit: 08/12/2024 LOS: 4 days Referring physician: Kemar Adames DO Outpatient X Ray Inspector: Christy Huerta DO ASSESSMENT/PLAN: #Nonoliguric UMA, dialysis dependent: CHEMISTRY INTERN dependent since 07/26 last admit. Baseline Cr had been 2.4-2.8, last (04/26) Cr 2.4 eGFR 20, 24 hr wiqpkav=9108 mg. -Suspected ATN in setting of infection/HD instability vs IRGN (had persistently low C3/4) -No signs of solute recovery -Continue HD support with UF as tolerated Lytes/Acid-base: #Mixed respiratory/metabolic acidosis- In setting of obstructive lung disease +/- volume overload and renal failure Na 131, K 4.1, bicarb 27, modulated with HD Ca/Phos: Ca 7.2, ionized Ca 4.2, Phos 4.5 HTN/Volume status: #Acute on chronic hypoxic/hypercapneic respiratory failure #Pneumonia #Bilateral pleural effusions -Hypotensive on arrival, now BP normal -Required BiPAP on admission to unit now weaned to 3 L NC -CXR 08/12 with mild pulm edema and small bilat effusions -UOP 525 ccs/24 hrs with 100 mg IV lasix -will likely require UF tomorrow Pancytopenia: Improving -In setting of recent infection and broad spectrum abx -HIT antibody sent -LDH/hapto normal #ID: -Completed course of meropenem for PsA/staph pneumonia last admit -Off antibiotics Adjust medications based on: Estimated Creatinine Clearance: 13 mL/min (A) (by C-G formula based onSCr of 3.9 mg/dL (H)). SUBJECTIVE: Patient with chronic, stable medical conditions as documented in the initial consultation. Interval history reviewed: no acute events. Planned HD today Patient reports breathing is only ok. Notes ongoing leg swelling OBJECTIVE: CURRENT MEDICATIONS: aspirin, 81 mg, Oral, Daily atorvastatin, 20 mg, Oral, Nightly busPIRone, 7.5 mg, Oral, BID clopidogrel, 75 mg, Oral, Daily fluticasone, 2 spray, Each Nostril, Daily gabapentin, 200 mg, Oral, BID heparin, 5,000 Units, SubCUTAneous, 2 times per day insulin glargine, 2 Units, SubCUTAneous, Nightly insulin lispro, 0-12 Units, SubCUTAneous, TID WC insulin lispro, 6 Units, SubCUTAneous, TID WC ipratropium-albuterol, 3 mL, Nebulization, 4x daily lisinopril, 2.5 mg, Oral, Daily metoprolol tartrate, 25 mg, Oral, BID mirtazapine, 7.5 mg, Oral, Nightly mometasone-formoterol, 2 puff, Inhalation, BID mupirocin, 1 Application, Nasal, BID pantoprazole, 40 mg, Oral, Nightly [START ON 08/17/2024] predniSONE, 30 mg, Oral, Daily Followed by [START ON 08/20/2024] predniSONE, 20 mg, Oral, Daily Followed by [START ON 08/23/2024] predniSONE, 10 mg, Oral, Daily Followed by [START ON 08/26/2024] predniSONE, 5 mg, Oral, Daily QUEtiapine, 25 mg, Oral, Nightly [Held by provider] tiotropium, 2 puff, Inhalation, Daily PHYSICAL EXAMINATION: Visit Vitals BP 111/52 (BP Location: Right arm, Patient Position: Lying) Pulse 62 Temp 36.1 C (97 F) (Temporal) Resp 16 Ht 1.676 m (5' 6) Wt 56.5 kg (124 lb 9 oz) SpO2 98% BMI 20.10 kg/m Smoking Status Never BSA 1.62 m Admit Wt: Weight: 57.2 kg (126 lb) Todays Wt: Weight: 56.5 kg (124 lb 9 oz) Average, Min, and Max for last 24 hours Vitals: TEMPERATURE: Temp Av.5 C (97.7 F) Min: 36.1 C (97 F) Max: 36.7 C (98.1 F) RESPIRATIONS RANGE: Resp Av.3 Min: 14 Max: 19 PULSE RANGE: Pulse Av Min: 61 Max: 82 BLOOD PRESSURE RANGE: Systolic (24hrs), Av , Min:111 , Max:146 Diastolic (24hrs), Av, Min:52, Max:69 PULSE OXIMETRY RANGE: SpO2 Av.3 % Min: 90 % Max: 100 % Estimated body mass index is 20.1 kg/m as calculated from the following: Height as of this encounter: 1.676 m (5' 6). Weight as of this encounter: 56.5 kg (124 lb 9 oz). Intake/Output Summary (Last 24 hours) at 08/16/2024 1341 Last data filed at 08/16/2024 0800 Gross per 24 hour Intake 100 ml Output 495 ml Net -395 ml General: A&Ox1, NAD, frail HEENT: Sclera clear, EOMI, MMM, Nose/ears/hearing grossly normal Neck: Supple, trachea midline, no mass, no TM Heart: RRR, no rub/heave Lungs: Clear bilaterally, unlabored Abd: Soft, (+) BS, non-tender Ext: 2+ dependent LE edema Neuro: No tremor/myoclonus Skin: warm and dry, no rash Access: [facility] TDC with clean dressing DATA: LABS: Recent Labs 08/14/2440308/15/2462208/16/24338 WBC 5.2 5.0 4.8 HGB 9.2* 9.5* 9.7* HCT 28.7* 30.3* 30.0* MCV 91.1 92.4 91.5 PLT 79* 90* 104* Recent Labs 08/14/2440308/15/2462208/16/24338 NA 130* 130* 131* K 3.5 3.9 4.1 CL 96* 100 98 CO2 25 22 27 BUN 18* 27* 38* CREATININE 1.91* 2.97* 3.90* GLUCOSE 361* 270* 362* CALCIUM 6.8* 7.1* 7.2* MG 2.1 2.1 2.2 PHOS 2.9 4.5 4.5 ANIONGAP 10 8 6 Lab Results Component Value Date CALCIUM 7.2 (L) 08/16/2024 CAION 4.20 (L) 08/16/2024 PHOS 4.5 08/16/2024 No results for input(s): INR, PROTIME, PTT in the last 72 hours. Lab Results Component Value Date IRON 71 08/12/2024 TIBC 158 (L) 08/12/2024 FERRITIN 231 08/12/2024 Lab Results Component Value Date [id number] 932 (H) 08/12/2024 FOLATE 10.8 08/12/2024 Lab Results Component Value Date COLORU Yellow 08/13/2024 CLARITYU Extra Turbid (A) 08/13/2024 GLUCOSEU Normal 08/13/2024 BLOODU 0.2 (A) 08/13/2024 UROBILINOGEN Normal 08/13/2024 No results found for: HAV, HEPAIGM, HEPBIGM, HEPBCAB, HBEAG, HEPCAB No lab exists for component: POCGMD No results for input(s): ALT, AST, GGT, ALKPHOS, BILITOT, LIPASE in the last 72 hours. Recent Labs 08/13/24 1438 TROPONINI 0.074* No results for input(s): CHOLTOT, TRIG, HDL, CHOLHDL, LDL in the last 72 hours. No lab exists for component: VLDCHOL No components found for: LABA1C No results for input(s): LACTATE in the last 72 hours. No results found for: FIBRINOGEN No results for input(s): CRP in the last 72 hours. No lab exists for component: ESR No results found for: CRP Lab Results Component Value Date LABGRAM (A) 07/27/2024 Many Polymorphonuclear leukocytes per low power field LABGRAM Few Epithelial cells per low power field (A) 07/27/2024 LABGRAM Moderate Gram positive cocci (A) 07/27/2024 No components found for: LABFUNG IMAGING: POCT glucose meter Performed by: [facility], [address] [place] [id number] CLIA ID: [id number] POCT glucose meter Performed by: [facility], [address] [place] [id number] CLIA ID: [id number] Signed: Jose Carlos Medrano MD Nephrology [facility] ([facility]) Pager: [phone] Office Office * Sherri Domingo, DIGITAL DESIGN ENGINEER - SUPERVISOR WHIPPED TOPPING - 08/16/2024 10:32 AM EDT Images from the original note were not included. [facility] Wound Care PROGRESS Note Sandy Deng AGE: 63 y.o. GENDER: female : 1960 Subjective: HISTORY of PRESENT ILLNESS HPI Sandy Deng is a 63 y.o. female who presents for a wound care follow up. HPI: Pt is a 63-year-old female with past medical history significant for COPD on 4L NC at baseline, ESRD on HD, T1DM, and recent admission to ICU for septic shock and subdural hematoma who presents to the ED today in respiratory distress. Wound Care consulted for pressure injury. Patient resting in bed at time of visit. Spouse present at bedside. Treatment completed by wound care service. PAST MEDICAL HISTORY Past Medical History: Diagnosis Date COPD (chronic obstructive pulmonary disease) (HCC) Diabetic neuropathy (HCC) Hyperlipidemia Myocardial infarct (HCC) Stage 4 chronic kidney disease (HCC) Type 1 diabetes (HCC) PAST SURGICAL HISTORY Past Surgical History: Procedure Laterality Date CORONARY ANGIOPLASTY WITH STENT PLACEMENT CORONARY ANGIOPLASTY WITH STENT PLACEMENT FAMILY HISTORY No family history on file. SOCIAL HISTORY Social History Tobacco Use Smoking status: Never Smokeless tobacco: Never ALLERGIES No Known Allergies MEDICATIONS No current facility-administered medications on file prior to encounter. Current Outpatient Medications on File Prior to Encounter Medication Sig Dispense Refill albuterol 108 (90 Base) MCG/ACT inhaler inhale 2 puffs by mouth and INTO THE LUNGS every 6 hours ifneeded for cough aspirin 81 MG EC tablet Take 1 tablet by mouth daily. Breztri Aerosphere 160-9-4.8 MCG/ACT aerosol busPIRone (Buspar) 7.5 MG tablet Take 1 tablet by mouth 2 times daily. Cholecalciferol ([employer] Vitamin D3) 25 MCG (1000 UT) chewable tablet Chew. clopidogrel (Plavix) 75 MG tablet Take 1 tablet by mouth daily. Continuous Glucose Sensor (Dexcom G6 Sensor) misc Continuous Glucose Transmitter (Dexcom G6 transmitter) [facility] fluticasone (Flonase) 50 MCG/ACT nasal spray Administer 2 sprays into each nostril daily. Shake gently. Before first use, prime pump. After use, clean tip and replace cap. gabapentin (Neurontin) 100 MG capsule Take 2 capsules (200 mg) by mouth 2 times daily. guaiFENesin (Robitussin) 100 MG/5ML liquid Take 10 mL (200 mg) by mouth every 4 hours as needed forcough or congestion for up to 10 days. insulin glargine (Lantus) 100 UNIT/ML injection Inject 3 Units under the skin Nightly. metoprolol tartrate (Lopressor) 50 MG tablet Take 1 tablet (50 mg) by mouth 2 times daily. mirtazapine (Remeron) 7.5 MG tablet Take 1 tablet by mouth Nightly. [] nitrofurantoin, macrocrystal-monohydrate, (Macrobid) 100 MG capsule Take 1 capsule (100 mg) by mouth 2 times daily for 3 doses. Prolia 60 MG/ML solution prefilled syringe SPS 15 GM/60ML suspension TAKE 30 GRAMS BY MOUTH EVERYDAY FOR ONE DAY Trelegy Ellipta 200-62.5-25 MCG/ACT aerosol powder [DISCONTINUED] gabapentin (Neurontin) 800 MG tablet 400 mg noon 800 mg at night [DISCONTINUED] HumaLOG KWIKPEN 100 UNIT/ML pen injection Inject 12 units 3 times a day by subcutaneous route. [DISCONTINUED] metoprolol tartrate (Lopressor) 50 MG tablet Take 1 tablet by mouth 2 times daily. REVIEW OF SYSTEMS Pertinent items are noted in HPI. Objective: BP 111/52 (BP Location: Right arm, Patient Position: Lying) Pulse 61 Temp 36.1 C (97 F) (Temporal) Resp 15 Ht 1.676 m (5' 6) Wt 56.5 kg (124 lb 9 oz) SpO2 90% BMI 20.10 kg/m PHYSICAL EXAM General appearance: in no apparent distress, well developed and well nourished, and in no respiratory distress and acyanotic Skin: warm and dry Pulmonary: Normal effort, no respiratory distress, no cyanosis Left 4th toe: 0.5 x 0.3 x UTD cm. Small intact dry scab present with no drainage noted, no odor or SOI. [place] wound dry with ecchymosis present. Stable (Photo 08/16/24) LABS CBC: Lab Results Component Value Date WBC 4.8 08/16/2024 HGB 9.7 (L) 08/16/2024 HCT 30.0 (L) 08/16/2024 MCV 91.5 08/16/2024 PLT 104 (L) 08/16/2024 BMP: Lab Results Component Value Date NA 131 (L) 08/16/2024 K 4.1 08/16/2024 CL 98 08/16/2024 CO2 27 08/16/2024 PHOS 4.5 08/16/2024 BUN 38 (H) 08/16/2024 CREATININE 3.90 (H) 08/16/2024 PT/INR: No results found for: PROTIME, INR Prealbumin: No results found for: PREALBUMIN Albumin:No components found for: LABALBU Sed Rate:No results found for: SEDRATE Micro: No components found for: BC Assessment/Plan: Left 4th toe: Abrasion -cleanse with NS, apply skin prep barrier wipe daily and PRN, leave ARTI 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 Any questions or concerns please secure chat [facility] wound/ostomy. Thank you for the consult! I personally obtained the cantrell and critical portions of the history and physical exam. I reviewed the labs, imaging studies, and electronic medical record. I reviewed the chart documentation and discussed the patient with treatment team members. I have edited the note to reflect my clinical findingsand my assessment and plan. Please note, the time of this note does not reflect the time I saw thispatient today, but the time of this documentaton. Portions of this note including HPI, ROS, impression/plan, and examination may have been copied forward from admission to today as to provide important historical information essential in contributing to medical decision making. Documentation has been reviewed and edited as necessary to support clinical decision making for today's visit and to reflect my own independent evaluation of this patient. Decision making for today's visit and to reflectmy own independent evaluation of this patient. Cosigned by Alex Duff DO at 08/17/2024 8:37 AM EDT * Tari Briggs MD - 08/16/2024 10:18 AM EDT Images from the original note were not included. [facility] - Infectious Diseases Attending Progress Note Subjective: Following for recent pneumonia as well as mastoid fluid bilaterally with CT showing L otitis media.+ known aspiration issues/ COPD/ recent COVID infection 07/24; recent MSSA/ Pseudomonas CTX-M pneumonia. Taken off of zosyn on 08/[address] Sandoval's recommendation. Vancomycin was last given on 08/14with repeat blood cx due to 11/04 with Staph epi--drawn peripherally. No problems with HD catheter. C/o increased hearing difficulty in the L ear. Afebrile. Objective: Vitals: Patient Vitals for the past 24 hrs: BP Temp Temp src Pulse Resp SpO2 Weight 08/16/24 0917 -- -- -- 76 18 98 % -- 08/16/24 0841 146/69 36.5 C (97.7 F) Temporal 72 16 97 % -- 08/16/24 0339 -- -- -- -- -- -- 56.5 kg (124 lb 9 oz) 08/15/242001 -- -- -- 72 19 97 % -- 08/15/241999 135/59 36.6 C (97.9 F) Temporal 73 16 97 % -- 08/15/24 1800 -- -- -- 78 17 100 % -- 08/15/24 1700 -- -- -- 82 15 99 % -- 08/15/24 1600 132/55 -- -- 78 16 98 % -- 08/15/24 1547 -- -- -- 74 17 100 % -- 08/15/24 1500 -- 36.7 C (98.1 F) Temporal 75 14 99 % -- 08/15/24 1400 -- -- -- 73 16 95 % -- 08/15/24 1300 -- -- -- 76 22 100 % -- 08/15/24 1253 -- -- -- 77 19 97 % -- 08/15/24 1200 143/70 -- -- 74 15 100 % -- 08/15/24 1100 141/67 36.8 C (98.2 F) Temporal 77 17 96 % -- Physical Exam Vitals and nursing note reviewed. Constitutional: Comments: Chronic ill appearance HENT: Head: Normocephalic and atraumatic. Ears: Comments: Decreased hearing acuity L ear; no mastoid tenderness on either side; attempted otoscope but difficulty with visualizing the TM Nose: Nose normal. Mouth/Throat: Mouth: Mucous membranes are moist. Eyes: General: No scleral icterus. Extraocular Movements: Extraocular movements intact. Cardiovascular: Rate and Rhythm: Normal rate. Pulmonary: Breath sounds: No wheezing. Comments: Coarse BS with cough Abdominal: General: Bowel sounds are normal. There is no distension. Palpations: Abdomen is soft. Tenderness: There is no abdominal tenderness. Musculoskeletal: Comments: + arthritic joint changes; no synovitis or crepitance of any limb Skin: General: Skin is warm and dry. Coloration: Skin is not jaundiced. Findings: No rash. Neurological: Mental Status: She is alert and oriented to person, place, and time. Psychiatric: Mood and Affect: Mood normal. Thought Content: Thought content normal. Labs: Lab Results Component Value Date/Time NA 131 (L) 08/16/2024338 K 4.1 08/16/2024338 CL 98 08/16/2024338 CO2 27 08/16/2024338 BUN 38 (H) 08/16/2024338 CREATININE 3.90 (H) 08/16/2024338 GLUCOSE 362 (H) 08/16/2024338 CALCIUM 7.2 (L) 08/16/2024338 PROT 5.2 (L) 08/12/20242332 BILITOT 0.9 08/12/20242332 ALKPHOS 52 08/12/20242332 AST 18 08/12/2024 233 ALT 13 08/12/20242332 PROCAL 0.16 (H) 08/05/2024 0256 PROCAL 2.48 (H) 07/26/2024 1850 Lab Results Component Value Date/Time WBC 4.8 08/16/2024338 HGB 9.7 (L) 08/16/2024338 HGB 8.3 08/13/2024 0658 HCT 30.0 (L) 08/16/2024338 PLT 104 (L) 08/16/2024338 LYMPHOPCT 10.1 (L) 08/16/2024338 LYMPHOPCT 7 (L) 08/13/2024 050 MONOPCT 6.9 08/16/2024338 MONOPCT 0 (L) 08/13/2024 0507 BASOPCT 0.2 08/16/2024338 NEUTROABS 3.9 08/16/2024338 Micro: 08/14- blood cx- NGTD 08/13- urine cx- >100k C albicans 08/13- RVP- negative 08/12- blood cx- 1/2 CoNS (drawn peripherally) 08/09- urine cx- >100k C albicans 08/07- RVP- negative 07/27- RVP- negative 07/27- resp cx- MSSA, resp keven 07/27- pneumonia PCR panel- + MSSA, Pseudomonas; + CTX-M, Coronavirus 07/26- Legionella and Strep urine Ag- negative Lines: RIJ TDC PIV [facility] Radiography/Echo/Other: 08/12- CTA brain/neck- 1. Interval resolution of tiny right subdural hematoma. 2. Bilateral mastoiditis and left otitis media, new compared to 07/26/2024. 08/12- CT brain- 1. Interval resolution of tiny RIGHT subdural hematoma. 2. BILATERAL mastoiditis and LEFT otitis media, new compared to 07/26/2024. 3. Perfusion exam demonstrates no acute infarct or at risk territory. 4. CTA demonstrates no large vessel occlusion. 5. Large right and small left pleural effusion with compressive atelectasis and/or infiltrate. Severe centrilobular emphysema. 08/12- CXR- Right IJ dialysis catheter tips overlie the region of the cavoatrial junction. Probable small right-sided pleural effusion is present. Mild perihilar infiltrate on the right may be infectious or secondary to pulmonary edema. Question tiny pleural effusion on the left. The cardiac silhouette is borderline in size. Small osteophytes of the spine are present at multiple levels. IMPRESSION: Suspect mild pulmonary edema with small pleural effusions. Antimicrobials, Start/End Dates: None. Impression: CoNS 1/2 in blood cx- suspect contaminant (drawn peripherally) L ear effusion B mastoid fluid on CT- no clinical mastoid tenderness/ + prolonged bedbound state with hospitalizations Candiduria Recent Coronavirus infection (COVID + 07/24; + remdesivir course inpatient) Recent MSSA and Pseudomonas pneumonia- treated with meropenem (07/2024) COPD ESRD on HD via TDC Recent R SDH Aspiration issues Plan: Stable off of abx and repeat blood cx are sterile to date. Blood cx were drawn peripherally- suspect this may represent a contaminant. If there are additional concerns for the line, a set of blood cxshould be drawn through the TDC. Appears stable at this time. May need ENT consult for ear complaints/ decreased hearing acuity with ear effusion on the L. Mastoid exam is normal at the bedside and without pain. Recent viral infection may have propagated an effusion. No antifungal treatment for Candiduria unless she clinically has vulvovaginitis. Will follow peripherally. Based on diagnoses and management, combination of acute and chronic problems, exacerbations and/or acuity, this visit should be considered to be of moderate complexity. Tari Briggs MD * Janell Booker MD - 08/16/2024 6:23 AM EDT ICU Progress Note Name: Sandy Deng : 1960(63 y.o.) Date: 08/16/24 Team: MICU Attending: Dr. Adames Subjective: Hospital Summary: Sandy Deng is a 63-year-old female with past medical history significant for COPD on 4L NC at baseline, ESRD on HD, T1DM, and recent admission to ICU for septic shock and subdural hematoma who presents to the [facility] respiratory distress. Patient had been recently discharged 2 days prior to [facility], and was found altered, nasal cannula taken off, and pulse ox at 80%. In the ED patient's mental status was improving on nonrebreather but VBG revealed pH of 7.09, with pCO2 at 101. Patient was placed on NIV and transferred to ICU for further management of hypercapnic respiratory failure. . Labs were significant for no leukocytosis, proBNP greater than 30,000, negative lactic acid. CXR demonstrates mild pulmonary edema with small pleural effusions, looked significantly improved from last admission. Suspect the acute on chronic hypoxic and hypercarbic respiratory failure 2/2 to COPD flaring post COVID 19 infection during previous admission. Now off NIV. Increased scheduled duonebs as the pt likely has high mucous burden, resumed dulera. Initiated slow prednisone taper. ID following, Zosyn discontinued. Pt received one time vanc dose and we are obtaining repeat blood cultures due to possible contaminant with staph epi (positive in 1/2 cultures). Nephro followingESRD on HD, improved acidosis with this. Noted thrombocytopenia which is improving, likely acute illness related, currently holding heparin, awaiting HIT results. Pt stable for GMF at this time. Interval Events: No acute events overnight. Pt reports feeling overall improved from admission, still weak and SOB but it has improved over past two days. Scheduled Meds: aspirin, 81 mg, Oral, Daily atorvastatin, 20 mg, Oral, Nightly busPIRone, 7.5 mg, Oral, BID clopidogrel, 75 mg, Oral, Daily fluticasone, 2 spray, Each Nostril, Daily gabapentin, 200 mg, Oral, BID insulin glargine, 2 Units, SubCUTAneous, Nightly insulin lispro, 0-12 Units, SubCUTAneous, TID WC ipratropium-albuterol, 3 mL, Nebulization, 4x daily lisinopril, 2.5 mg, Oral, Daily metoprolol tartrate, 25 mg, Oral, BID mirtazapine, 7.5 mg, Oral, Nightly mometasone-formoterol, 2 puff, Inhalation, BID mupirocin, 1 Application, Nasal, BID pantoprazole, 40 mg, Oral, Nightly predniSONE, 40 mg, Oral, Daily Followed by [START ON 08/17/2024] predniSONE, 30 mg, Oral, Daily Followed by [START ON 08/20/2024] predniSONE, 20 mg, Oral, Daily Followed by [START ON 08/23/2024] predniSONE, 10 mg, Oral, Daily Followed by [START ON 08/26/2024] predniSONE, 5 mg, Oral, Daily QUEtiapine, 25 mg, Oral, Nightly [Held by provider] tiotropium, 2 puff, Inhalation, Daily Continuous Infusions: none Objective: Last Vitals: BP MAP 135/59 (08/15/241999) 81 (08/15/241999) Arterial BP MAP (na) (08/13/24 0632) Temp 36.6 C (97.9 F) (08/15/241999) Pulse 72 (08/15/242001) Resp 19 (08/15/242001) SpO2 97 % (08/15/242001) Weight 56.5 kg (124 lb 9 oz) (08/16/24 0339) BMI Body mass index is 20.1 kg/m . I/O: 08/15 07 - 08/16 659 In: 418 [P.O.:318; I.V.:100] Out: 525 [Urine:525] Ventilator: n/a Oxygen Delivery: O2 Flow Rate (L/min): 4 L/min Invasive Lines / Tubes / Drains: Peripheral IV 08/12/24 Right Antecubital (Active) Number of days: 3 Peripheral IV 08/13/24 Anterior;Right Forearm (Active) Number of days: 3 Urethral Catheter Straight-tip (Active) Number of days: 3 Hemodialysis Cath Double Lumen 08/12/24 Right Tunneled catheter Internal jugular (Active) Number of days: 3 Central Line Indication: Hemodialysis [place] Indications: Hourly I&Os (Critical Care ONLY) Restraints: Restraints Non-Violent Or Non-Self Destructive Aug 13, 2024 1:02 Pm Edt NA - patient is not restrained. Wounds: Wound/Incision 08/12/24 Other (comment) Toe - fourth Anterior;Left (Active) Date First Assessed/Time First Assessed: 08/12/24 1200 Present on Original Admission: Yes Primary Wound Type: (c) Other (comment) Location: Toe - fourth Wound Location Orientation: Anterior;Left Constitutional: General Appearance []WDWN []Obese []Cachectic [x]Thin []Ill Eyes: Inspection of Pupils/Irises Pupils round and react: [x]Yes []No Sclera: []Icteric [x]Non-Icteric Inspection of Conjunctiva/Lids Conjunctiva: []Injected [x]Non-Injected Lids: [x]Intact []Lesion Present ENT/Mouth: External Inspection of ears/nose [x] Normal [] Scar/Lesion/Mass Inspection of teeth/lips/gums Dentition: [][place] Teeth []Dentures Lips/Gums: [x]Intact []Lesion Present Mucosa: [x][place] []Moist []Dry Neck: External Appearance Overall Appearance: [x]Normal []Lesion/Mass/Crepitus Present Trachea midline: [x]Yes []No Respiratory: Respiratory effort []Labored [x]Non-Labored [] Mechanically-Ventilated Auscultation [x]Clear []Crackles []Wheezes []Rhonchi Cardiovascular: Auscultation Rate: [x]Regular []Irregular []Tachycardia []Bradycardia Rhythm: []Regular []Irregular Murmur: []Present [x]Absent Extremities Peripheral Edema: []Present (bilateral feet) [x]Absent Varicosities: []Present [x]Absent Gastrointestinal: Abdomen Palpation: [x]Soft []Firm []Tender [x]Non-Tender []Distended [x]Non-distended Mass: []Present [x]Absent Bowel Sounds: [x]Present []Absent Hernia: []Present [x]Absent Liver/Spleen: []Hepatosplenomegaly [x]Organomegaly Absent Musculoskeletal: Inspection of Digits and Nails Cyanosis: []Present [x]Absent Clubbing: []Present [x]Absent Ischemia: []Present [x]Absent Infection: []Present [x]Absent Extremities ROCHE Equally: Except ([]RUE []RLE []LUE []LLE) Strength/Tone: Intact and Normal ([]RUE []RLE []LUE []LLE) Skin: Inspection []Normal []Rash [x]Lesion (left fourth toes abrasion, wound care following) []Ulcer Palpation [x]Warm []Cool [x]Dry []Clammy []Nodules []Induration []Skin-tightening Cap-Refill: [] <3 sec [] >3 seconds (delayed) Neurologic: GCS EYE: 4 - Opens spontaneously GCS MOTOR: 6 - Obeys commands for movement GCS VERBAL: 5 - Oriented to person, place, time Total GCS: 15 [] Sensation grossly intact Psych: Mental Status Alert: [x]Yes [] No Oriented: []x0 []X1 []X2 [x]x3 Mood/Affect []Normal []Flat []Agitated []Depressed []Anxious [x]Calm []Sedated [x]NAD Select Labs within last 24 hours- BMP: Recent Labs 08/14/24 04008/15/24 0608/16/24 0339 NA 130* 130* 131* K 3.5 3.9 4.1 CL 96* 100 98 CO2 25 22 27 BUN 18* 27* 38* CREATININE 1.91* 2.97* 3.90* CALCIUM 6.8* 7.1* 7.2* MG 2.1 2.1 2.2 PHOS 2.9 4.5 4.5 LFTs: Recent Labs 08/13/24 1046 BILIRUBINU Negative Glucose: Recent Labs 08/14/24 0404 08/14/24 0926 08/14/24 1122 08/14/24 1616 08/14/24 2039 08/15/24 0623 08/15/24 0828 08/15/24 1134 08/15/24 1706 08/15/24 2100 08/16/24 0339 GLUCOSE 361* -- -- -- -- 270* -- -- -- -- 362* POCGLU -- 356* 294* 233* 248* -- 302* 340* 368* 344* -- Procal: No results for input(s): PROCAL in the last 72 hours. CBC: Recent Labs 08/14/2440308/15/2462208/16/24 0339 WBC 5.2 5.0 4.8 HGB 9.2* 9.5* 9.7* HCT 28.7* 30.3* 30.0* PLT 79* 90* 104* MCV 91.1 92.4 91.5 RDW 16.4* 15.9* 15.8* ABGs: Recent Labs 08/13/24 0658 PHART 7.291* [id number] 49.4* PO2ART 84.7 [id number] 23.3 [id number] 30% Oxygen Lactic Acid: Recent Labs 08/13/24 0649 LACTATE <0.5* INR: No results for input(s): INR in the last 72 hours. Cardiac Injury Profile: Recent Labs 08/13/24 0924 08/13/24 1045 08/13/24 1438 TROPONINI 0.073* 0.070* 0.074* Labs in Last 3 months: Lab Results Component Value Date TSH 3.472 07/26/2024 INR 1.0 08/13/2024 Microbiology- Urine Cx: Lab Results Component Value Date URINECX >100,000 CFU/mL Abbi albicans (A) 08/13/2024 Blood Cx: Lab Results Component Value Date BLOODCX No growth at 24 hours 08/14/2024 Sputum Cx: Lab Results Component Value Date RESPCULT Rare respiratory keven present. 07/27/2024 RESPCULT Few Staphylococcus aureus (A) 07/27/2024 Gram Stain: Lab Results Component Value Date LABGRAM (A) 07/27/2024 Many Polymorphonuclear leukocytes per low power field LABGRAM Few Epithelial cells per low power field (A) 07/27/2024 LABGRAM Moderate Gram positive cocci (A) 07/27/2024 PNA PCR: Lab Results Component Value Date HUMANMETAPNE Not Detected 08/13/2024 COVID19: No results found for: COVID19 Legionella Ag: Lab Results Component Value Date LEGIONELLAPN Not Detected 07/27/2024 Strep Ag: No results for input(s): STREPPNEUMO in the last 72 hours. Imaging- No recent imaging obtained in past 24 hrs Assessment and Plan: Principal Problem: Hypercapnic respiratory failure (HCC) Assessment: Acute hypercapnic and hypoxic respiratroy failure 2/2 AECOPD in setting of chronic resp failure on 4L NC at baseline Acute metabolic encephalopathy-resolved Normocytic Anemia Demand Ischemia MRSE positive in 1/2 blood cultures- contamination vs infection Pancytopenia - improving ESRD on HD T1DM Hx recent subdural hematoma- resolved Chronic mastoiditis Candiduria Plan: Continue 4L baseline oxygen, AECOPD most likely due to post-covid COPD reactive airway, pulmonary consulted to follow on GMF Continue prednisone taper: 40mg 3 days, 30mg 3 days, 20mg 3days, and 10mg 3 days. Will monitor symptoms- if pt acutely worsens, switch to slower taper T1DM poorly controled glucose, on steroid taper: Currently medium dose SS, 2 units lantus nightly (home dosing via insulin pump) Will add 6 units lispro with meals to achieve better glucose control Chest congestion: switch duonebs from scheduled TID to q6h. Continue mucinex. Encourage oral hydration. RT should not to hold any treatment/medications even if pt is not actively wheezing on exam withoutdiscussing with pulmonary ID following: low suspicion for active infection. Not on abx. Recent hx of septic shock 2/2 CTX-M pseudomonas and staph aureus PNA with COVID- 19 infection Chronic mastoiditis: chronic tinnitus, no localized pain- doubt acute infection. No need to treat. If worsens clinically, consider ENT evaluation. Candiduria: asymptomatic, likely from perineal region, no need for treatment at this time MRSE positive in 1/2 blood cultures- contamination vs infection, collected repeat blood cultures (no growth at 24 hrs) and gave onetime dose vancomycin Nephrology following, pt on HD (MWF) Pancytopenia - improving Restarted home ASA and plavix HIT ruled out with negative antibody screen Demand ischemia: pt has hx of stent and NSTEMI, elevated troponin's looks to be stable around 0.070, discontinued trop trend Normocytic anemia, Hgb stable, pt has been hospitalized multiple times over past month likely contributing to decreased Hgb, no acute bleed suspected, required 2 units pRBC this admission Initiated DVT ppx with subcutaneous heparin PT/OT consults placed, will appreciate recommendations as pt would like her to go home but is hesitant if she has trouble ambulating Spoke with pt who would like to meet with SW or onsite case manager to discuss insurance coverage for dialysis before pt is discharged from hospital. GI Prophylaxis: Pantoprazole PO DVT Prophylaxis: SCDs, subcutaneous heparin Disposition: Transfer to [facility] Cosigned by Kemar Adames DO at 08/16/2024 8:35 PM EDT Associated attestation - Kemar Adames DO - 08/16/2024 8:35 PM EDT I have personally performed a [id number] diagnostic evaluation on this patient on date of iajkhir07/14/24 . History, labs, imaging studies, and electronic medical record have been reviewed by me. This note documented by the [x]warehouse incentive selector []TONJA reflects my history, exam, and medical decision making. I have reviewed and agree with the care plan. Changes were made in the orders as necessary. ROS documentation was reviewed and negative unless otherwise stated in HPI. Additional pertinent interval history, ROS, and physical exam findings: Tolerating HD. Fever: No Vital stable: Yes UOP past 24 hr: 525 I/O total stay: +3130 Stool recorded: Yes SBT/SAT today: N/A Use of PRNs: No Physical Exam Vitals and nursing note reviewed. Constitutional: General: She is not in acute distress. Appearance: She is not ill-appearing, toxic-appearing or diaphoretic. HENT: Head: Normocephalic and atraumatic. Right Ear: External ear normal. Cardiovascular: Rate and Rhythm: Normal rate and regular rhythm. Pulmonary: Effort: Pulmonary effort is normal. Neurological: General: No focal deficit present. Mental Status: She is alert. Assessment: Acute on chronic hypoxemic respir failure -- back to baseline Encephalopathy -- resolved. T1DM w/ hyperglycemia ESRD/HD Plan: Pred taper ongoing. Start hlog . Continue lantus2. Monitor sugar with steroid doses changing. HD per Nephro recs. Resume heparin for DVT prophy. GMF tx. NonCCM time: 35min * Saroj Gaffney MD - 08/15/2024 12:46 PM EDT Images from the original note were not included. Nephrology Consult Note Consult date: 08/15/24 12:46 PM Patient: Sandy Deng Room number: [id number] Date of Admit: 08/12/2024 LOS: 3 days Referring physician: Elizabeth Tyler MD Outpatient X Ray Inspector: Dr. Christy Huerta Assessment / Plan 63 y.o. female with a past medical history of CKD 4, DM type 1, HTN, CAD, COPD (3L O2 baseline), recent admit 07/26-08/10 for septic shock iso PsA/staph PNA and coronavirus infection (stay further c/b UMA requiring HD and SDH) who was admitted on 08/12/2024 with AMS, hypoxia, admitted to ICU with hypercapneic respiratory failure. #Nonoliguric UMA, dialysis dependent: CHEMISTRY INTERN dependent since 07/26 last admit. Baseline Cr had been 2.4-2.8, last (04/26) Cr 2.4 eGFR 20, 24 hr ghjanzn=4118 mg. -Suspected ATN in setting of infection/HD instability vs IRGN (had persistently low c3/4) -Some signs of renal recovery with increasing UOP and relatively stable Cr in 2.3-2.5 range 08/11-08/13; however sharp uptrend today 1.9 -> 2.9 -Last HD 08/13 primarily for volume Lytes/Acid-base: #Mixed respiratory/metabolic acidosis- In setting of obstructive lung disease +/- volume overload and renal failure Na 130, K 3.9, bicarb 22, modulated with HD Ca/Phos: Ca 7.1 (Alb 2.9), Phos 4.5 HTN/Volume status: #Acute on chronic hypoxic/hypercapneic respiratory failure #Pneumonia #Bilateral pleural effusions -Hypotensive on arrival, now BP normal -Required BiPAP on admission to unit now weaned to 3L NC -CXR 08/12 with mild pulm edema and small bilat effusions -UOP 525 ccs/24 hrs with 100 mg IV lasix Pancytopenia: Improving. WBCs 5.0, Hgb 9.5, Plt 90 -In setting of recent infection and broad spectrum abx -HIT antibody sent -LDH/hapto normal #ID: -Completed course of meropenem for PsA/staph pneumonia last admit -On vanc/zosyn -ID evaluating Access: [facility] 07/29 Recommendations: -No acute indications for HD, next treatment tomorrow 08/16 -Repeat lasix 100 mg IV today -Will follow pancytopenia workup per primary, using citrate locks for HD line pending HIT testing -Renal function panel daily Thank you for allowing us to participate in the care of this patient. Please call with any questions. Saroj Gaffney MD [facility] ([facility]) Office phone: [phone] Office fax: [phone] Pager: [phone] 10/13/24 Subjective No acute events. Fairly modest response to high dose lasix yesterday and solutes uptrending. Still short of breath today and with some LE edema. Past Medical History Past Medical History: Diagnosis Date COPD (chronic obstructive pulmonary disease) ([facility]) Diabetic neuropathy ([facility]) Hyperlipidemia Myocardial infarct ([facility]) Stage 4 chronic kidney disease ([facility]) Type 1 diabetes ([facility]) Medications Scheduled Meds:aspirin, 81 mg, Oral, Daily atorvastatin, 20 mg, Oral, Nightly busPIRone, 7.5 mg, Oral, BID clopidogrel, 75 mg, Oral, Daily fluticasone, 2 spray, Each Nostril, Daily gabapentin, 200 mg, Oral, BID insulin glargine, 2 Units, SubCUTAneous, Nightly insulin lispro, 0-12 Units, SubCUTAneous, TID WC ipratropium-albuterol, 3 mL, Nebulization, 4x daily lisinopril, 2.5 mg, Oral, Daily metoprolol tartrate, 25 mg, Oral, BID mirtazapine, 7.5 mg, Oral, Nightly mometasone-formoterol, 2 puff, Inhalation, BID mupirocin, 1 Application, Nasal, BID pantoprazole, 40 mg, Oral, Nightly predniSONE, 40 mg, Oral, Daily Followed by [START ON 08/17/2024] predniSONE, 30 mg, Oral, Daily Followed by [START ON 08/20/2024] predniSONE, 20 mg, Oral, Daily Followed by [START ON 08/23/2024] predniSONE, 10 mg, Oral, Daily Followed by [START ON 08/26/2024] predniSONE, 5 mg, Oral, Daily QUEtiapine, 25 mg, Oral, Nightly [Held by provider] tiotropium, 2 puff, Inhalation, Daily Continuous Infusions: Allergies No Known Allergies Review of Systems All systems reviewed and neg except as above. Vital Signs Vitals: 08/15/24 0927 08/15/24 1000 08/15/24 1100 08/15/24 1200 BP: 141/67 143/70 BP Location: Patient Position: Pulse: 78 78 77 74 Resp: 17 16 17 15 Temp: 36.8 C (98.2 F) TempSrc: Temporal SpO2: 99% 96% 96% 100% Weight: Height: Wt Readings from Last 3 Encounters: 08/14/24 61.5 kg (135 lb 9.3 oz) 08/07/24 57.4 kg (126 lb 8.7 oz) Admit Wt: Weight: 57.2 kg (126 lb) Estimated body mass index is 21.88 kg/m as calculated from the following: Height as of this encounter: 1.676 m (5' 6). Weight as of this encounter: 61.5 kg (135 lb 9.3 oz). I/O last 3 completed shifts: In: 902 (14.7 mL/kg) [P.O.:236; I.V.:666 (10.8 mL/kg)] Out: 615 (10 mL/kg) [Urine:615 (0.3 mL/kg/hr)] Weight: 61.5 kg Net IO Since Admission: 3,427 mL [08/15/24 1246] Physical Exam General: A&Ox1, NAD, frail HEENT: Sclera clear, EOMI, MMM, Nose/ears/hearing grossly normal Neck: Supple, trachea midline, no mass, no TM Heart: RRR, no rub/heave Lungs: Clear bilaterally, unlabored Abd: Soft, (+) BS, non-tender Ext: 1+ LE edema Neuro: No tremor/myoclonus Skin: warm and dry, no rash Access: RIJ TDC with clean dressing LABS Labs reviewed. Recent Labs 08/13/24 1438 08/14/24 0404 08/15/24 0623 WBC 3.1* 5.2 5.0 HGB 9.2* 9.2* 9.5* HCT 28.2* 28.7* 30.3* MCV 90.1 91.1 92.4 PLT 78* 79* 90* Recent Labs 08/12/24 2333 08/13/24 0507 08/14/24 0404 08/15/24 0623 NA 130* 134* 130* 130* K 4.2 3.7 3.5 3.9 CL 100 103 96* 100 CO2 22 19* 25 22 BUN 20* 18* 18* 27* CREATININE 2.56* 2.43* 1.91* 2.97* GLUCOSE 220* 211* 361* 270* CALCIUM 6.9* 7.1* 6.8* 7.1* MG -- 1.5* 2.1 2.1 PHOS -- 3.0 2.9 4.5 ANIONGAP 7 11 10 8 ALBUMIN 2.9* -- -- -- Recent Labs 08/12/24 2333 ALT 13 AST 18 ALKPHOS 52 BILITOT 0.9 Diagnostic Studies CXR 08/12 FINDINGS: Right IJ dialysis catheter tips overlie the region of the cavoatrial junction. Probable small right-sided pleural effusion is present. Mild perihilar infiltrate on the right may be infectious or secondary to pulmonary edema. Question tiny pleural effusion on the left. The cardiac silhouette is borderline in size. Small osteophytes of the spine are present at multiple levels. IMPRESSION: Suspect mild pulmonary edema with small pleural effusions. I personally reviewed History and Physical, MAR, labs and imaging as above. * Janell Booker MD - 08/15/2024 6:14 AM EDT ICU Progress Note Name: Sandy Deng : 1960(63 y.o.) Date: 08/15/24 Team: MICU Attending: Dr. Tyler Subjective: Hospital Summary: Sandy Deng is a 63-year-old female with past medical history significant for COPD on 4L NC at baseline, ESRD on HD, T1DM, and recent admission to ICU for septic shock and subdural hematoma who presents to the [facility] respiratory distress. Patient had been recently discharged 2 days prior to [facility], and was found altered, nasal cannula taken off, and pulse ox at 80%. In the ED patient's mental status was improving on nonrebreather but VBG revealed pH of 7.09, with pCO2 at 101. Patient was placed on NIV and transferred to ICU for further management of hypercapnic respiratory failure. . Labs were significant for no leukocytosis, proBNP greater than 30,000, negative lactic acid. CXR demonstrates mild pulmonary edema with small pleural effusions, looked significantly improved from last admission. Suspect the acute on chronic hypoxic and hypercarbic respiratory failure 2/2 to COPD flaring post COVID 19 infection during previous admission. Now off NIV. Increased scheduled duonebs as the pt likely has high mucous burden, resumed dulera. Initiated slow prednisone taper. ID following, Zosyn discontinued. Pt received one time vanc dose and we are obtaining repeat blood cultures due to possible contaminant with staph epi (positive in 1/2 cultures). Nephro followingESRD on HD, improved acidosis with this. Noted thrombocytopenia which is improving, likely acute illness related, currently holding heparin, awaiting HIT results. Pt stable for GMF at this time. Interval Events: No acute events overnight. Pt sleeping comfortably on 3L nasal canula. This morning pt reports feeling similar to yesterday with respect to SOB. She feels not as congested but is weak and is not coughing up mucous yet. Denies CP/TRAYLOR/VC/N/V/abdominal pain. Scheduled Meds: aspirin, 81 mg, Oral, Daily atorvastatin, 20 mg, Oral, Nightly busPIRone, 7.5 mg, Oral, BID clopidogrel, 75 mg, Oral, Daily fluticasone, 2 spray, Each Nostril, Daily gabapentin, 200 mg, Oral, BID insulin glargine, 2 Units, SubCUTAneous, Nightly insulin lispro, 0-12 Units, SubCUTAneous, TID WC ipratropium-albuterol, 3 mL, Nebulization, 4x daily lisinopril, 2.5 mg, Oral, Daily [Held by provider] metoprolol tartrate, 25 mg, Oral, BID mirtazapine, 7.5 mg, Oral, Nightly mometasone-formoterol, 2 puff, Inhalation, BID mupirocin, 1 Application, Nasal, BID predniSONE, 40 mg, Oral, Daily Followed by [START ON 08/17/2024] predniSONE, 30 mg, Oral, Daily Followed by [START ON 08/20/2024] predniSONE, 20 mg, Oral, Daily Followed by [START ON 08/23/2024] predniSONE, 10 mg, Oral, Daily Followed by [START ON 08/26/2024] predniSONE, 5 mg, Oral, Daily QUEtiapine, 25 mg, Oral, Nightly [Held by provider] tiotropium, 2 puff, Inhalation, Daily Continuous Infusions: none Objective: Last Vitals: BP MAP 139/59 (08/15/24 0000) 80 (08/15/24 0000) Arterial BP MAP (na) (08/13/24 0632) Temp 36.7 C (98 F) (08/15/24 0000) Pulse 81 (08/15/24 0000) Resp 16 (08/15/24 0000) SpO2 100 % (08/15/24 0000) Weight 61.5 kg (135 lb 9.3 oz) (08/14/24 0600) BMI Body mass index is 21.88 kg/m . I/O: 08/14 0700 - 08/15 0659 In: 735 [P.O.:236; I.V.:499] Out: 200 [Urine:200] Ventilator: none Oxygen Delivery: O2 Flow Rate (L/min): 3 L/min Invasive Lines / Tubes / Drains: Peripheral IV 08/12/24 Right Antecubital (Active) Number of days: 2 Peripheral IV 08/13/24 Anterior;Right Forearm (Active) Number of days: 2 Urethral Catheter Straight-tip (Active) Number of days: 2 Hemodialysis Cath Double Lumen 08/12/24 Right Tunneled catheter Internal jugular (Active) Number of days: 2 Central Line Indication: Hemodialysis [place] Indications: Hourly I&Os (Critical Care ONLY) Restraints: Restraints Non-Violent Or Non-Self Destructive Aug 13, 2024 1:02 Pm Edt NA - patient is not restrained. Wounds: Wound/Incision 08/12/24 Other (comment) Toe - fourth Anterior;Left (Active) Date First Assessed/Time First Assessed: 08/12/24 1200 Present on Original Admission: Yes Primary Wound Type: (c) Other (comment) Location: Toe - fourth Wound Location Orientation: Anterior;Left Constitutional: General Appearance []WDWN []Obese []Cachectic [x]Thin []Ill Eyes: Inspection of Pupils/Irises Pupils round and react: [x]Yes []No Sclera: []Icteric [x]Non-Icteric Inspection of Conjunctiva/Lids Conjunctiva: []Injected [x]Non-Injected Lids: [x]Intact []Lesion Present ENT/Mouth: External Inspection of ears/nose [x] Normal [] Scar/Lesion/Mass Inspection of teeth/lips/gums Dentition: [][place] Teeth []Dentures Lips/Gums: [x]Intact []Lesion Present Mucosa: [x]Pinson []Moist []Dry Neck: External Appearance Overall Appearance: [x]Normal []Lesion/Mass/Crepitus Present Trachea midline: [x]Yes []No Respiratory: Respiratory effort []Labored [x]Non-Labored [] Mechanically-Ventilated Auscultation []Clear []Crackles []Wheezes [x]Rhonchi (upper airway congestion) Cardiovascular: Auscultation Rate: [x]Regular []Irregular []Tachycardia []Bradycardia Rhythm: [x]Regular []Irregular Murmur: []Present [x]Absent Extremities Peripheral Edema: [x]Present (bilateral feet) []Absent Varicosities: []Present [x]Absent Gastrointestinal: Abdomen Palpation: [x]Soft []Firm []Tender [x]Non-Tender [x]Distended []Non-distended Mass: []Present [x]Absent Bowel Sounds: [x]Present []Absent Hernia: []Present [x]Absent Liver/Spleen: []Hepatosplenomegaly [x]Organomegaly Absent Musculoskeletal: Inspection of Digits and Nails Cyanosis: []Present [x]Absent Clubbing: []Present [x]Absent Ischemia: []Present [x]Absent Infection: []Present [x]Absent Extremities ROCHE Equally: Except ([]RUE []RLE []LUE []LLE) Strength/Tone: Intact and Normal ([]RUE []RLE []LUE []LLE) Skin: Inspection []Normal []Rash [x]Lesion(noted on right second digit) []Ulcer Palpation [x]Warm []Cool [x]Dry []Clammy []Nodules []Induration []Skin-tightening Cap-Refill: [] <3 sec [] >3 seconds (delayed) Neurologic: GCS EYE: 4 - Opens spontaneously GCS MOTOR: 6 - Obeys commands for movement GCS VERBAL: 5 - Oriented to person, place, time Total GCS: 15 Psych: Mental Status Alert: [x]Yes [] No Oriented: []x0 []X1 []X2 [x]x3 Mood/Affect []Normal []Flat []Agitated []Depressed []Anxious []Calm []Sedated [x]NAD Select Labs within last 24 hours- BMP: Recent Labs 08/12/24 2333 08/13/24 0507 08/14/24 0404 NA 130* 134* 130* K 4.2 3.7 3.5 CL 100 103 96* CO2 22 19* 25 BUN 20* 18* 18* CREATININE 2.56* 2.43* 1.91* CALCIUM 6.9* 7.1* 6.8* MG -- 1.5* 2.1 PHOS -- 3.0 2.9 LFTs: Recent Labs 08/12/24 2333 08/13/24 1046 AST 18 -- ALT 13 -- PROT 5.2* -- ALBUMIN 2.9* -- BILITOT 0.9 -- BILIRUBINU -- Negative ALKPHOS 52 -- Glucose: Recent Labs 08/12/24 1337 08/12/24 1820 08/12/24 2333 08/13/24 0057 08/13/24 0507 08/13/24 0509 08/13/24 0612 08/13/24 1025 08/13/24 1203 08/13/24 1758 08/13/24 2021 08/13/24 2219 08/14/24 0404 08/14/24 0926 08/14/24 1122 08/14/24 1616 08/14/24 2039 GLUCOSE 229* -- 220* -- 211* -- -- -- -- -- -- -- 361* -- -- -- -- POCGLU -- < > -- < > -- < > -- < > 307* 176* 259* 310* -- 356* 294* 233* 248* BHYDRXBUT -- -- -- -- -- -- 33.80* -- -- -- -- -- -- -- -- -- -- < > = values in this interval not displayed. Procal: No results for input(s): PROCAL in the last 72 hours. CBC: Recent Labs 08/13/24 0507 08/13/24 0658 08/13/24 0918 08/13/24 1438 08/14/24 0404 WBC 2.5* -- -- 3.1* 5.2 HGB 6.7* < > 9.2* 9.2* 9.2* HCT 21.0* -- 28.3* 28.2* 28.7* PLT 65* -- -- 78* 79* MCV 93.3 -- -- 90.1 91.1 RDW 16.1* -- -- 15.9* 16.4* < > = values in this interval not displayed. ABGs: Recent Labs 08/12/24 1604 08/12/24 2333 08/13/24 0658 PHART -- -- 7.291* [id number] -- -- 49.4* PO2ART -- -- 84.7 LAK1PQB -- -- 23.3 [id number] Bi-PAP 30% Oxygen 30% Oxygen Lactic Acid: Recent Labs 08/12/24 1337 08/13/24 0649 LACTATE 1.6 <0.5* INR: Recent Labs 08/13/24 0612 INR 1.0 Cardiac Injury Profile: Recent Labs 08/13/24 0924 08/13/24 1045 08/13/24 1438 TROPONINI 0.073* 0.070* 0.074* Labs in Last 3 months: Lab Results Component Value Date TSH 3.472 07/26/2024 INR 1.0 08/13/2024 Microbiology- Urine Cx: Lab Results Component Value Date URINECX Culture in progress 08/09/2024 URINECX >100,000 CFU/mL Abbi albicans (A) 08/09/2024 Blood Cx: Lab Results Component Value Date BLOODCX Blood culture incubation started 08/14/2024 Sputum Cx: Lab Results Component Value Date RESPCULT Rare respiratory keven present. 07/27/2024 RESPCULT Few Staphylococcus aureus (A) 07/27/2024 Gram Stain: Lab Results Component Value Date LABGRAM (A) 07/27/2024 Many Polymorphonuclear leukocytes per low power field LABGRAM Few Epithelial cells per low power field (A) 07/27/2024 LABGRAM Moderate Gram positive cocci (A) 07/27/2024 PNA PCR: Lab Results Component Value Date HUMANMETAPNE Not Detected 08/13/2024 COVID19: No results found for: COVID19 Legionella Ag: Lab Results Component Value Date LEGIONELLAPN Not Detected 07/27/2024 Strep Ag: No results for input(s): STREPPNEUMO in the last 72 hours. Imaging- no recent imaging Assessment and Plan: Principal Problem: Hypercapnic respiratory failure (HCC) Assessment: Acute hypercapnic and hypoxic respiratroy failure 2/2 AECOPD in setting of chronic resp failure on 4L NC at baseline Acute metabolic encephalopathy-resolved Normocytic Anemia Demand Ischemia MRSE positive in 1/2 blood cultures- contamination vs infection Pancytopenia - improving ESRD on HD T1DM Hx recent subdural hematoma- resolved Chronic mastoiditis Candiduria Plan: Continue 4L baseline oxygen, AECOPD most likely due to post-covid COPD reactive airway, pulmonary consulted to follow on [facility] Continue prednisone taper: 40mg 3 days, 30mg 3 days, 20mg 3days, and 10mg 3 days. Will monitor symptoms- if pt acutely worsens, switch to slower taper Chest congestion: switch duonebs from scheduled TID to q6h. Continue mucinex. Encourage oral hydration. RT should not to hold any treatment/medications even if pt is not actively wheezing on exam withoutdiscussing with pulmonary ID following: low suspicion for active infection. Not on abx. Recent hx of septic shock 2/2 CTX-M pseudomonas and staph aureus PNA with COVID- 19 infection Chronic mastoiditis: chronic tinnitus, no localized pain- doubt acute infection. No need to treat. If worsens clinically, consider ENT evaluation. Candiduria: asymptomatic, likely from perineal region, no need for treatment at this time MRSE positive in 1/2 blood cultures- contamination vs infection, collected repeat blood cultures and gave onetime dose vancomycin yesterday T1DM: medium dose SS, 2 units lantus nightly (home dosing via insulin pump) Nephrology following, pt on HD Pancytopenia - improving Restarted home ASA and plavix Ruling out HIT, low suspicion as likely viral sequela, Ab pending, will continue to hold heparin Demand ischemia: pt has hx of stent and NSTEMI, elevated troponin's looks to be stable around 0.070, discontinued trop trend Normocytic anemia, Hgb stable, pt has been hospitalized multiple times over past month likely contributing to decreased Hgb, no acute bleed suspected, required 2 units pRBC this admission Re-starting home metoprolol that was held in ED due to hypotension upon admission, Bps now stable and HR 70's-80's GI Prophylaxis: Pantoprazole PO DVT Prophylaxis: SCDs Disposition: Transfer to [facility] Cosigned by Elizabeth Tyler MD at 08/15/2024 1:22 PM EDT Associated attestation - Elizabeth Tyler MD - 08/15/2024 1:22 PM EDT I have personally performed a [id number] diagnostic evaluation on this patient on date of dlhurtb18/13/24. History, labs, imaging studies, and electronic medical record have been reviewed by me. This note documented by the [x]warehouse incentive selector []TONJA reflects my history, exam, and medical decision making. I have reviewed and agree with the care plan. Changes were made in the orders as necessary. ROS documentation was reviewed and negative unless otherwise stated in HPI. Additional pertinent interval history, ROS, and physical exam findings: Still having chest congestion, cough, wheezing, dyspnea with minimal movement. Remains off NIV. Assessment and Plan: Acute on chronic hypoxic and hypercarbic respiratory failure 2/2 AECOPD (?post covid?). Off NIV. Plan prednisone taper. Continue inhalers/duonebs. Doubt active infection- observing off therapy. Stap Epi bacteremia- follow up cultures. Received vancomycin ESRD on HD- tolerating HD Blood counts improving Awaiting transfer to floor- pulmonary to follow. Anticipate will need post discharge rehab. * Saroj Gaffney MD - 08/14/2024 2:26 PM EDT Images from the original note were not included. Nephrology Consult Note Consult date: 08/14/24 2:26 PM Patient: Sandy Deng Room number: [id number] Date of Admit: 08/12/2024 LOS: 2 days Referring physician: Elizabeth Tyler MD Outpatient X Ray Inspector: Dr. Christy Huerta Assessment / Plan 63 y.o. female with a past medical history of CKD 4, DM type 1, HTN, CAD, COPD (3L O2 baseline), recent admit 07/26-08/10 for septic shock iso PsA/staph PNA and coronavirus infection (stay further c/b UMA requiring HD and SDH) who was admitted on 08/12/2024 with AMS, hypoxia, admitted to ICU with hypercapneic respiratory failure. #Nonoliguric UMA, dialysis dependent: CHEMISTRY INTERN dependent since 07/26 last admit. Baseline Cr had been 2.4-2.8, last (04/26) Cr 2.4 eGFR 20, 24 hr oclcwgz=6799 mg. -Suspected ATN in setting of infection/HD instability vs IRGN (had persistently low c3/4) -Some signs of renal recovery with increasing UOP and relatively stable Cr in 2.3-2.5 range 08/11-08/13 -Last HD 08/13 primarily for volume -No acute indications for HD today Lytes/Acid-base: #Mixed respiratory/metabolic acidosis- In setting of obstructive lung disease +/- volume overload and renal failure Na 130, K 3.5, bicarb 25, modulated with HD Ca/Phos: Ca 6.8 (Alb 2.9), Phos 2.9 HTN/Volume status: #Acute on chronic hypoxic/hypercapneic respiratory failure #Pneumonia #Bilateral pleural effusions -Hypotensive on arrival, now BP normal -Required BiPAP on admission to unit now weaned to 3L NC -CXR 08/12 with mild pulm edema and small bilat effusions -UOP 289 ccs/24 hrs without diuretic Pancytopenia: Improving. WBCs 5.2, Hgb 9.2, Plt 79 -In setting of recent infection and broad spectrum abx -HIT antibody sent -LDH/hapto normal #ID: -Completed course of meropenem for PsA/staph pneumonia last admit -On vanc/zosyn -ID evaluating Access: [facility] 07/29 Recommendations: -No acute indications for HD, monitoring for recovery -Lasix challenge today 100 mg IV x1 -Will follow pancytopenia workup per primary, using citrate locks for HD line pending HIT testing -Renal function panel daily Thank you for allowing us to participate in the care of this patient. Please call with any questions. Saroj Gaffney MD [facility] ([facility]) Office phone: [phone] Office fax: [phone] Pager: [phone] 08/14/24 Subjective No acute events. No issues with HD yesterday, UF 2.5L. Patient somewhat more awake/alert today. Slight shortness of breath and wheezing. No other complaints. Past Medical History Past Medical History: Diagnosis Date COPD (chronic obstructive pulmonary disease) (HCC) Diabetic neuropathy (HCC) Hyperlipidemia Myocardial infarct (HCC) Stage 4 chronic kidney disease (HCC) Type 1 diabetes ([facility]) Medications Scheduled Meds:aspirin, 81 mg, Oral, Daily atorvastatin, 20 mg, Oral, Nightly busPIRone, 7.5 mg, Oral, BID clopidogrel, 75 mg, Oral, Daily fluticasone, 2 spray, Each Nostril, Daily gabapentin, 200 mg, Oral, BID insulin glargine, 2 Units, SubCUTAneous, Nightly insulin lispro, 0-12 Units, SubCUTAneous, TID WC ipratropium-albuterol, 3 mL, Nebulization, 4x daily lisinopril, 2.5 mg, Oral, Daily [Held by provider] metoprolol tartrate, 25 mg, Oral, BID mirtazapine, 7.5 mg, Oral, Nightly mometasone-formoterol, 2 puff, Inhalation, BID mupirocin, 1 Application, Nasal, BID predniSONE, 40 mg, Oral, Daily Followed by [START ON 08/17/2024] predniSONE, 30 mg, Oral, Daily Followed by [START ON 08/20/2024] predniSONE, 20 mg, Oral, Daily Followed by [START ON 08/23/2024] predniSONE, 10 mg, Oral, Daily Followed by [START ON 08/26/2024] predniSONE, 5 mg, Oral, Daily QUEtiapine, 25 mg, Oral, Nightly [Held by provider] tiotropium, 2 puff, Inhalation, Daily vancomycin, 1,500 mg, IntraVENous, Once Continuous Infusions: Allergies No Known Allergies Review of Systems All systems reviewed and neg except as above. Vital Signs Vitals: 08/14/24 1200 08/14/24 1235 08/14/24 1300 08/14/24 1400 BP: 125/54 141/55 127/55 BP Location: Patient Position: Pulse: 72 71 77 71 Resp: 17 18 20 18 Temp: 36.7 C (98.1 F) TempSrc: Temporal SpO2: 100% 100% 100% 100% Weight: Height: Wt Readings from Last 3 Encounters: 08/14/24 61.5 kg (135 lb 9.3 oz) 08/07/24 57.4 kg (126 lb 8.7 oz) Admit Wt: Weight: 57.2 kg (126 lb) Estimated body mass index is 21.88 kg/m as calculated from the following: Height as of this encounter: 1.676 m (5' 6). Weight as of this encounter: 61.5 kg (135 lb 9.3 oz). I/O last 3 completed shifts: In: 3711 (60.3 mL/kg) [I.V.:2936 (47.7 mL/kg); Blood:775] Out: 390 (6.3 mL/kg) [Urine:390 (0.2 mL/kg/hr)] Weight: 61.5 kg Net IO Since Admission: 3,263 mL [08/14/24 1426] Physical Exam General: A&Ox1, NAD, frail HEENT: Sclera clear, EOMI, MMM, Nose/ears/hearing grossly normal Neck: Supple, trachea midline, no mass, no TM Heart: RRR, no rub/heave Lungs: Clear bilaterally, unlabored Abd: Soft, (+) BS, non-tender Ext: 1+ LE edema Neuro: No tremor/myoclonus Skin: warm and dry, no rash Access: RIJ TDC with clean dressing LABS Labs reviewed. Recent Labs 08/13/24 0507 08/13/24 0658 08/13/24 0918 08/13/24 1438 08/14/24 0404 WBC 2.5* -- -- 3.1* 5.2 HGB 6.7* < > 9.2* 9.2* 9.2* HCT 21.0* -- 28.3* 28.2* 28.7* MCV 93.3 -- -- 90.1 91.1 PLT 65* -- -- 78* 79* < > = values in this interval not displayed. Recent Labs 08/12/24 2333 08/13/24 0507 08/14/24 0404 NA 130* 134* 130* K 4.2 3.7 3.5 CL 100 103 96* CO2 22 19* 25 BUN 20* 18* 18* CREATININE 2.56* 2.43* 1.91* GLUCOSE 220* 211* 361* CALCIUM 6.9* 7.1* 6.8* MG -- 1.5* 2.1 PHOS -- 3.0 2.9 ANIONGAP 7 11 10 ALBUMIN 2.9* -- -- Recent Labs 08/12/24 2333 ALT 13 AST 18 ALKPHOS 52 BILITOT 0.9 Diagnostic Studies CXR 08/12 FINDINGS: Right IJ dialysis catheter tips overlie the region of the cavoatrial junction. Probable small right-sided pleural effusion is present. Mild perihilar infiltrate on the right may be infectious or secondary to pulmonary edema. Question tiny pleural effusion on the left. The cardiac silhouette is borderline in size. Small osteophytes of the spine are present at multiple levels. IMPRESSION: Suspect mild pulmonary edema with small pleural effusions. I personally reviewed History and Physical, MAR, labs and imaging as above. * Janell Booker MD - 08/14/2024 1:59 PM EDT ICU Transfer Checklist Transfer Med Reconciliation (resume home meds if able, convert to PO if able) Complete Antibiotics (name, indication, duration, convert to PO if able) Yes, addressed in today's progress note Steroid (indication, duration, convert to PO if able) Yes, addressed in today's progress note Anticipated [place] Medications (ICU initiated) or Dose Changes and Indication Yes, indication steroid taper, addressed in progressed note Permanently Discontinued Home Medications and Reason for medication contraindication No Johnson Catheter (please remove if able. Note: place DC order) Yes, indication limited mobility very weak given this is second ICU admission within one month, consider discontinuing when pt begins ambulating Central Line (please remove if able. Note: place DC order) Yes, indication HD catheter Transfer Discussed with: Med team A: Dr. Sandy Bowman; Attending Dr. 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 * Janell Booker MD - 08/14/2024 6:31 AM EDT ICU Progress Note Name: Sandy Deng : 1960(63 y.o.) Date: 08/14/24 Team: MICU Attending: Dr. Tyler Subjective: Hospital Summary: Sandy Deng is a 63-year-old female with past medical history significant for COPD on 4L NC atbaseline, ESRD on HD, T1DM, and recent admission to ICU for septic shock and subdural hematoma who presents to the ED today in respiratory distress. [facility], and today was found altered, nasal cannula taken off, and pulse ox at 80%. In the ED patient's mental status was improving on nonrebreather but VBG revealed pH of 7.09, with pCO2 at 101.Patient was placed on NIV and ICU was consulted. On evaluation, patient is in soft restraints due to repeated attempts to remove mask while altered,but had regained orientation and was amenable to NIV mask as long as it is removed as soon as I donot need it. Patient's blood pressure had stabilized to 110s/50s, pulse ox at 100%. Patient reports feeling difficulty breathing for the last day or so, but denies any fevers, chills, cough, chest pa in, nausea or vomiting, or changes in bowel movements. Labs significant for no leukocytosis, proBNPgreater than 30,000, negative lactic acid. CXR demonstrates mild pulmonary edema with small pleuraleffusions, looks significantly improved from last admission. Patient was admitted to ICU for further management of hypercapnic respiratory failure. Interval Events: Overnight, pt refused NIV and remained stable on her basleine O2. She had no other issues ovenright. This morning, pt is stating she feels better, but is still SOB. She is also having chest congestion, but feels too dry to cough it up. Pt states when mucus gets stuck from coughing she gets panicked and becomes more SOB. She denies all other symptoms at this time and is much more alert than yesterday. Scheduled Meds: aspirin, 81 mg, Oral, Daily atorvastatin, 20 mg, Oral, Nightly busPIRone, 7.5 mg, Oral, BID clopidogrel, 75 mg, Oral, Daily fluticasone, 2 spray, Each Nostril, Daily gabapentin, 200 mg, Oral, BID insulin glargine, 2 Units, SubCUTAneous, Nightly insulin lispro, 0-12 Units, SubCUTAneous, TID WC ipratropium-albuterol, 3 mL, Nebulization, 4x daily lisinopril, 2.5 mg, Oral, Daily [Held by provider] metoprolol tartrate, 25 mg, Oral, BID mirtazapine, 7.5 mg, Oral, Nightly mometasone-formoterol, 2 puff, Inhalation, BID mupirocin, 1 Application, Nasal, BID predniSONE, 40 mg, Oral, Daily Followed by [START ON 08/17/2024] predniSONE, 30 mg, Oral, Daily Followed by [START ON 08/20/2024] predniSONE, 20 mg, Oral, Daily Followed by [START ON 08/23/2024] predniSONE, 10 mg, Oral, Daily Followed by [START ON 08/26/2024] predniSONE, 5 mg, Oral, Daily QUEtiapine, 25 mg, Oral, Nightly [Held by provider] tiotropium, 2 puff, Inhalation, Daily Objective: Last Vitals: BP MAP 137/56 (08/14/24 1000) 78 (08/14/24 1000) Arterial BP MAP (na) (08/13/24 0632) Temp 36.7 C (98 F) (08/14/24 0800) Pulse 80 (08/14/24 1000) Resp 19 (08/14/24 1000) SpO2 98 % (08/14/24 1000) Weight 61.5 kg (135 lb 9.3 oz) (08/14/24 0600) BMI Body mass index is 21.88 kg/m . I/O: 08/13 0700 - 08/14 0659 In: 1376.5 [I.V.:1006] Out: 289 [Urine:289] Ventilator: Resp Rate (Set): 14 FiO2 (%): 30 % Inspiratory Time (sec): 0.7 sec Oxygen Delivery: 4L NC Invasive Lines / Tubes / Drains: Peripheral IV 08/12/24 Right Antecubital (Active) Number of days: 0 Peripheral IV 08/13/24 Anterior;Right Forearm (Active) Number of days: 0 Urethral Catheter Straight-tip (Active) Number of days: 0 Hemodialysis Cath Double Lumen 08/12/24 Right Tunneled catheter Internal jugular (Active) Number of days: 0 Central Line Indication: Hemodialysis Johnson Indications: Hourly I&Os (Critical Care ONLY) Restraints: Restraints Non-Violent Or Non-Self Destructive Aug 13, 2024 1:02 Pm Edt NA - patient is not restrained. Constitutional: General Appearance [x]WDWN []Obese []Cachectic []Thin [x]Ill Eyes: Inspection of Pupils/Irises Pupils round and react: [x]Yes []No Sclera: []Icteric [x]Non-Icteric Inspection of Conjunctiva/Lids Conjunctiva: []Injected [x]Non-Injected Lids: [x]Intact []Lesion Present ENT/Mouth: External Inspection of ears/nose [x] Normal [] Scar/Lesion/Mass Inspection of teeth/lips/gums Dentition: [][place] Teeth []Dentures Lips/Gums: [x]Intact []Lesion Present Mucosa: [][place] []Moist []Dry Neck: External Appearance Overall Appearance: [x]Normal []Lesion/Mass/Crepitus Present Trachea midline: [x]Yes []No Thyroid []Normal []Enlarged []Tender []Mass []Absent Respiratory: Respiratory effort []Labored [x]Non-Labored [] Mechanically-Ventilated Auscultation [x]Clear []Crackles []Wheezes [][place] Cardiovascular: Auscultation Rate: [x]Regular []Irregular []Tachycardia []Bradycardia Rhythm: [x]Regular []Irregular Murmur: []Present [x]Absent Extremities Peripheral Edema: []Present [x]Absent Varicosities: []Present [x]Absent Gastrointestinal: Abdomen Palpation: [x]Soft []Firm []Tender [x]Non-Tender []Distended [x]Non-distended Mass: []Present []Absent Bowel Sounds: [x]Present []Absent Hernia: []Present []Absent Liver/Spleen: []Hepatosplenomegaly []Organomegaly Absent Musculoskeletal: Inspection of Digits and Nails Cyanosis: []Present [x]Absent Clubbing: []Present [x]Absent Ischemia: []Present [x]Absent Infection: []Present [x]Absent Extremities ROCHE Equally: Except ([]RUE []RLE []LUE []LLE) Strength/Tone: Intact and Normal ([]RUE []RLE []LUE []LLE) Skin: Inspection [x]Normal []Rash []Lesion []Ulcer Palpation [x]Warm []Cool [x]Dry []Clammy []Nodules []Induration []Skin-tightening Cap-Refill: [x] <3 sec [] >3 seconds (delayed) Neurologic: GCS EYE: 4 - Opens spontaneously GCS MOTOR: 6 - Obeys commands for movement GCS VERBAL: 5 - Oriented to person, place, time Total GCS: 15 [x] Sensation grossly intact Psych: Mental Status Alert: []Yes [x] No Oriented: []x0 []X1 []X2 [x]x3 Mood/Affect [x]Normal []Flat []Agitated []Depressed []Anxious []Calm []Sedated [x]NAD [facility] Labs within last 24 hours BMP: Recent Labs 08/12/24233208/13/24 05008/14/24 0404 NA 130* 134* 130* K 4.2 3.7 3.5 CL 100 103 96* CO2 22 19* 25 BUN 20* 18* 18* CREATININE 2.56* 2.43* 1.91* CALCIUM 6.9* 7.1* 6.8* MG -- 1.5* 2.1 PHOS -- 3.0 2.9 LFTs: Recent Labs 08/12/24 23308/13/24 1046 AST 18 -- ALT 13 -- PROT 5.2* -- ALBUMIN 2.9* -- BILITOT 0.9 -- BILIRUBINU -- Negative ALKPHOS 52 -- Glucose: Recent Labs 08/12/24 1337 08/12/24 1820 08/12/24 23308/13/24 0057 08/13/24 0507 08/13/24 0509 08/13/24 0612 08/13/24 1025 08/13/24 1203 08/13/24 1758 08/13/24 2021 08/13/24 2219 08/14/24 0404 08/14/24 0926 GLUCOSE 229* -- 220* -- 211* -- -- -- -- -- -- -- 361* -- POCGLU -- < > -- 252* -- 253* -- 259* 307* 176* 259* 310* -- 356* BHYDRXBUT -- -- -- -- -- -- 33.80* -- -- -- -- -- -- -- < > = values in this interval not displayed. CBC: Recent Labs 08/13/24 0507 08/13/24 0658 08/13/24 0918 08/13/24 1438 08/14/24 0404 WBC 2.5* -- -- 3.1* 5.2 HGB 6.7* < > 9.2* 9.2* 9.2* HCT 21.0* -- 28.3* 28.2* 28.7* PLT 65* -- -- 78* 79* MCV 93.3 -- -- 90.1 91.1 RDW 16.1* -- -- 15.9* 16.4* < > = values in this interval not displayed. ABGs: Recent Labs 08/12/24 1604 08/12/24 2333 08/13/24 0658 PHART -- -- 7.291* [id number] -- -- 49.4* PO2ART -- -- 84.7 [id number] -- -- 23.3 [id number] Bi-PAP 30% Oxygen 30% Oxygen Lactic Acid: Recent Labs 08/12/24 1337 08/13/24 0649 LACTATE 1.6 <0.5* Cardiac Injury Profile: Recent Labs 08/13/24 0924 08/13/24 1045 08/13/24 1438 TROPONINI 0.073* 0.070* 0.074* LACTATE DEHYDROGENASE Date/Time Value Ref Range Status 08/13/2024 06:12 AM 184 120 - 246 U/L Final HAPTOGLOBIN Date/Time Value Ref Range Status 08/13/2024 06:12 AM 44.2 30.0 - 200.0 mg/dL Final BETA HYDROXYBUTYRATE Date/Time Value Ref Range Status 08/13/2024 06:12 AM 33.80 (H) 0.20 - 2.81 mg/dL Final Labs in Last 3 months: Lab Results Component Value Date TSH 3.472 07/26/2024 INR 1.0 08/13/2024 Microbiology Urine Cx: Lab Results Component Value Date URINECX Culture in progress 08/09/2024 URINECX >100,000 CFU/mL Abbi albicans (A) 08/09/2024 Blood Cx: Lab Results Component Value Date BLOODCX Staphylococcus epidermidis (AA) 08/12/2024 BLOODCX No growth at 24 hours 08/12/2024 mecA Date/Time Value Ref Range Status 07/27/2024 02:53 AM Not Detected Not Detected Final mecA/C (MRSE/MRSL) Date/Time Value Ref Range Status 08/12/2024 01:37 PM Detected (A) Not Detected Final Sputum Cx: Lab Results Component Value Date RESPCULT Rare respiratory keven present. 07/27/2024 RESPCULT Few Staphylococcus aureus (A) 07/27/2024 Gram Stain: Lab Results Component Value Date LABGRAM (A) 07/27/2024 Many Polymorphonuclear leukocytes per low power field LABGRAM Few Epithelial cells per low power field (A) 07/27/2024 LABGRAM Moderate Gram positive cocci (A) 07/27/2024 Resp Pathogens PCR: negative Legionella Ag: Lab Results Component Value Date LEGIONELLAPN Not Detected 07/27/2024 Strep Ag: Streptococcus pneumoniae Date/Time Value Ref Range Status 07/27/2024 02:53 AM Not Detected Not Detected Final Imaging CT head wo IV contrast Final Result 1. Interval resolution of tiny right subdural hematoma. 2. Bilateral mastoiditis and left otitis media, new compared to 07/26/2024. 3. ASPECTS: [address] ANGIOGRAPHY HEAD AND NECK: Clinical Indication: Inpatient; 63-year-old female; new gaze deviation with pupil asymmetry; patient receiving dialysis tomorrow; stroke team called Scan Parameters: CT perfusion: Following non-contrast CT through the head, dynamic 4D CT angiograms of the intracranial vessels and CT Perfusion study of the whole brain were performed after IV contrast. The data setwas post processed 4D CT angiograms, 3-D shaded surface display CT angiograms, and color coded CT pe rfusion maps of cerebral blood volume, mean transit time, and cerebral blood flow. CTA head and neck: Multiple axial CT images were obtained of the head and neck after administrationof IV contrast with coronal and sagittal reconstructs. The CT angiographic studies of the extracranial vessels were post processed with MIP imaging. Measurement of carotid stenosis is a ratio based on conventional angiographic data from the NASCET trials with the smallest caliber of the internal carotid as the numerator and normal post-stenotic internal carotid caliber as denominator. Dose reduction was employed with automated exposure control. Contrast: 100 mL of Isovue-370 IV contrast Comparison: CT head 07/26/2024 Findings: CT perfusion studies: No global or regional perfusion abnormalities are noted on the TTP, MTT, CBV,or CBF maps. There is no core infarct, there is no atrophy risk territory, and there is no mismatchpenumbra. Aortic arch: The aortic arch demonstrates normal caliber. There are no significant atherosclerotic calcifications at the aortic arch. There is no stenosis at the origin of the three-vessel takeoff. Right carotid: Mild atherosclerotic calcifications are present along the common carotid artery and internal. The right internal carotid artery demonstrates minimal stenosis near the origin in the range of less than 30 percent. Patent flow extends into the intracranial circulation. Left carotid: Mild atherosclerotic calcifications are present along the common carotid artery and internal. The left internal carotid artery demonstrates minimal stenosis near the origin in the rangeof less than 30 percent. Patent flow extends into the intracranial circulation. Vertebral arteries: There is patent antegrade flow noted within the vertebral arteries. Intracranial arteries: Patent flow is identified throughout the anterior, middle and posterior cerebral arteries. No vascular malformation or aneurysm above 3 mm in caliber is identified. The regionsof the anterior and posterior communicating arteries are unremarkable. Atherosclerotic calcifications are present along the supraclinoid portion of bilateral internal carotid arteries. Neck: There is no adenopathy. The salivary glands are within normal limits. The airway is patent. The thyroid gland contour is normal. Esophagus is decompressed. The epiglottis is normal. Lung apices: There is a large right pleural effusion and a small left pleural effusion with compressive atelectasis. Severe centrilobular emphysema is present within the lung apices. Osseous structures: The osseous structures are intact. Mild endplate spurring is present along the cervical spine.. IMPRESSION: 1. Interval resolution of tiny RIGHT subdural hematoma. 2. BILATERAL mastoiditis and LEFT otitis media, new compared to 07/26/2024. 3. Perfusion exam demonstrates no acute infarct or at risk territory. 4. CTA demonstrates no large vessel occlusion. 5. Large right and small left pleural effusion with compressive atelectasis and/or infiltrate. Severe centrilobular emphysema. CRITICAL TEST COMMUNICATION: Dr. Nuñez was notified by telephone today at 11:01pm. Report Dictated on Electronically Signed By: Otilia Wiley MD Electronically Signed Date/Time: 08/12/2024 11:12 PM EDT CTA head neck angio w and wo IV contrast Final Result 1. Interval resolution of tiny right subdural hematoma. 2. Bilateral mastoiditis and left otitis media, new compared to 07/26/2024. 3. ASPECTS: [address] ANGIOGRAPHY HEAD AND NECK: Clinical Indication: Inpatient; 63-year-old female; new gaze deviation with pupil asymmetry; patient receiving dialysis tomorrow; stroke team called Scan Parameters: CT perfusion: Following non-contrast CT through the head, dynamic 4D CT angiograms of the intracranial vessels and CT Perfusion study of the whole brain were performed after IV contrast. The data setwas post processed 4D CT angiograms, 3-D shaded surface display CT angiograms, and color coded CT pe rfusion maps of cerebral blood volume, mean transit time, and cerebral blood flow. CTA head and neck: Multiple axial CT images were obtained of the head and neck after administrationof IV contrast with coronal and sagittal reconstructs. The CT angiographic studies of the extracranial vessels were post processed with MIP imaging. Measurement of carotid stenosis is a ratio based on conventional angiographic data from the NASCET trials with the smallest caliber of the internal carotid as the numerator and normal post-stenotic internal carotid caliber as denominator. Dose reduction was employed with automated exposure control. Contrast: 100 mL of Isovue-370 IV contrast Comparison: CT head 07/26/2024 Findings: CT perfusion studies: No global or regional perfusion abnormalities are noted on the TTP, MTT, CBV,or CBF maps. There is no core infarct, there is no atrophy risk territory, and there is no mismatchpenumbra. Aortic arch: The aortic arch demonstrates normal caliber. There are no significant atherosclerotic calcifications at the aortic arch. There is no stenosis at the origin of the three-vessel takeoff. Right carotid: Mild atherosclerotic calcifications are present along the common carotid artery and internal. The right internal carotid artery demonstrates minimal stenosis near the origin in the range of less than 30 percent. Patent flow extends into the intracranial circulation. Left carotid: Mild atherosclerotic calcifications are present along the common carotid artery and internal. The left internal carotid artery demonstrates minimal stenosis near the origin in the rangeof less than 30 percent. Patent flow extends into the intracranial circulation. Vertebral arteries: There is patent antegrade flow noted within the vertebral arteries. Intracranial arteries: Patent flow is identified throughout the anterior, middle and posterior cerebral arteries. No vascular malformation or aneurysm above 3 mm in caliber is identified. The regionsof the anterior and posterior communicating arteries are unremarkable. Atherosclerotic calcifications are present along the supraclinoid portion of bilateral internal carotid arteries. Neck: There is no adenopathy. The salivary glands are within normal limits. The airway is patent. The thyroid gland contour is normal. Esophagus is decompressed. The epiglottis is normal. Lung apices: There is a large right pleural effusion and a small left pleural effusion with compressive atelectasis. Severe centrilobular emphysema is present within the lung apices. Osseous structures: The osseous structures are intact. Mild endplate spurring is present along the cervical spine.. IMPRESSION: 1. Interval resolution of tiny RIGHT subdural hematoma. 2. BILATERAL mastoiditis and LEFT otitis media, new compared to 07/26/2024. 3. Perfusion exam demonstrates no acute infarct or at risk territory. 4. CTA demonstrates no large vessel occlusion. 5. Large right and small left pleural effusion with compressive atelectasis and/or infiltrate. Severe centrilobular emphysema. CRITICAL TEST COMMUNICATION: Dr. Nuñez was notified by telephone today at 11:01pm. Report Dictated on Electronically Signed By: Otilia Wiley MD Electronically Signed Date/Time: 08/12/2024 11:[address] PERFUSION Final Result 1. Interval resolution of tiny right subdural hematoma. 2. Bilateral mastoiditis and left otitis media, new compared to 07/26/2024. 3. ASPECTS: [address] ANGIOGRAPHY HEAD AND NECK: Clinical Indication: Inpatient; 63-year-old female; new gaze deviation with pupil asymmetry; patient receiving dialysis tomorrow; stroke team called Scan Parameters: CT perfusion: Following non-contrast CT through the head, dynamic 4D CT angiograms of the intracranial vessels and CT Perfusion study of the whole brain were performed after IV contrast. The data setwas post processed 4D CT angiograms, 3-D shaded surface display CT angiograms, and color coded CT pe rfusion maps of cerebral blood volume, mean transit time, and cerebral blood flow. CTA head and neck: Multiple axial CT images were obtained of the head and neck after administrationof IV contrast with coronal and sagittal reconstructs. The CT angiographic studies of the extracranial vessels were post processed with MIP imaging. Measurement of carotid stenosis is a ratio based on conventional angiographic data from the NASCET trials with the smallest caliber of the internal carotid as the numerator and normal post-stenotic internal carotid caliber as denominator. Dose reduction was employed with automated exposure control. Contrast: 100 mL of Isovue-370 IV contrast Comparison: CT head 07/26/2024 Findings: CT perfusion studies: No global or regional perfusion abnormalities are noted on the TTP, MTT, CBV,or CBF maps. There is no core infarct, there is no atrophy risk territory, and there is no mismatchpenumbra. Aortic arch: The aortic arch demonstrates normal caliber. There are no significant atherosclerotic calcifications at the aortic arch. There is no stenosis at the origin of the three-vessel takeoff. Right carotid: Mild atherosclerotic calcifications are present along the common carotid artery and internal. The right internal carotid artery demonstrates minimal stenosis near the origin in the range of less than 30 percent. Patent flow extends into the intracranial circulation. Left carotid: Mild atherosclerotic calcifications are present along the common carotid artery and internal. The left internal carotid artery demonstrates minimal stenosis near the origin in the rangeof less than 30 percent. Patent flow extends into the intracranial circulation. Vertebral arteries: There is patent antegrade flow noted within the vertebral arteries. Intracranial arteries: Patent flow is identified throughout the anterior, middle and posterior cerebral arteries. No vascular malformation or aneurysm above 3 mm in caliber is identified. The regionsof the anterior and posterior communicating arteries are unremarkable. Atherosclerotic calcifications are present along the supraclinoid portion of bilateral internal carotid arteries. Neck: There is no adenopathy. The salivary glands are within normal limits. The airway is patent. The thyroid gland contour is normal. Esophagus is decompressed. The epiglottis is normal. Lung apices: There is a large right pleural effusion and a small left pleural effusion with compressive atelectasis. Severe centrilobular emphysema is present within the lung apices. Osseous structures: The osseous structures are intact. Mild endplate spurring is present along the cervical spine.. IMPRESSION: 1. Interval resolution of tiny RIGHT subdural hematoma. 2. BILATERAL mastoiditis and LEFT otitis media, new compared to 07/26/2024. 3. Perfusion exam demonstrates no acute infarct or at risk territory. 4. CTA demonstrates no large vessel occlusion. 5. Large right and small left pleural effusion with compressive atelectasis and/or infiltrate. Severe centrilobular emphysema. CRITICAL TEST COMMUNICATION: Dr. Nuñez was notified by telephone today at 11:01pm. Report Dictated on Electronically Signed By: Otilia Wiley MD Electronically Signed Date/Time: 08/12/2024 11:12 PM EDT XR chest 1 view Final Result Suspect mild pulmonary edema with small pleural effusions. Report Dictated on Electronically Signed By: Kami Brown MD Electronically Signed Date/Time: 08/12/2024 1:13 PM EDT EEG: This continuous EEG with video is abnormal. Continuous diffuse dqtshrur-od-wyitgb diffuse slowing is seen unresponsive to stimulation. REM sleep architecture is observed. At times, fronto-centrally predominant fast activity is observed reminiscent of sleep spindles. No interictal epileptiform activity nor seizures are observed. The findings are supportive of a ngpuorno-py-oquefc global encephalopathy non- specific as to etiology. Will continue video-EEG monitoring to evaluate the evolution of this encephalopathy. 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 Will monitor symptoms- ifpt acutely worsens, switch to slower taper. -hypercarbia improved, NIV discontinued -chest congestion: switch duonebs from scheduled TID to q6h. Continue mucinex. Encourage oral hydration. -RT should not to hold any treatment/medications even if pt is not actively wheezing on exam without discussing with pulmonary -ID consult: low suspicion for active infection. If culture negative, DC antibiotic. -discontinue zosyn Acute metabolic encephalopathy-resolved -neurocritical team consulted- no stroke or seizure on workup -loading dose keppra given, due to EEG results keppra was discontinued yesterday -EEG consistent with encephalopathy could be due to rapid correction in CO2 vs anemia vs reaction to loading dose of keppra Mixed respiratory and metabolic acidosis- resolved -pt presented in hypercapnic RF, pCO2 improved with NIV -NAGMA, likely 2/2 missed dialysis session -nephro following Normocytic Anemia -Pt has been hospitalized multiple times over past month likely contributing to decreased Hgb -Recent baseline appears to be around Hgb 8 -Pt required 1 unit pRBC on 08/12 for Hgb 6.9, the next morning patient was found to be 6.7 requiring 1 additional unit pRBC, Hgb now 9.2 and stable -Pt shows no signs of acute bleed, will continue to monitor Hgb Demand ischemia -pt has hx of stent and NSTEMI -elevated troponins- 0.046>0.046>0.052 on admission -looks to be stable around 0.070, will discontinue troponin trend MRSE positive in 1/2 blood cultures- contamination vs infection -pt does have dialysis catheter -repeat blood cultures -give one dose vancomycin after drawing the cultures -will reach out to ID for any further recommendations Pancytopenia -all cell lines have improved compared to yesterday -can restart home ASA and plavix -possible HIT from subQ heparin she received during previous admission, possibly from dose of zosynreceived in ED vs viral sequela from previous COVID infection 1 month ago -HIT Ab pending -will hold heparin while HIT Ab is pending ESRD on HD Hypocalcemia -nephro following -replete calcium T1DM -hypoglycemia protocol in place -Regular diet ordered, medium-dose sliding scale insulin -continue 2 units lantus nightly -pt on steroids, will need to adjust insulin to steroid-induced hyperglycemia Hx of recent subdural hematoma and recent ICU stay Recent hx of septic shock 2/2 CTX-M pseudomonas and staph aureus PNA with COVID- 19 infection -low suspicion for persisting PNA at this time, will continue to monitor for development of signs of infection Mastoiditis on CT, new finding -consult ID: chronic tinnitus, no localized pain- doubt acute infection. No need to treat. If worsens clinically, consider ENT evaluation. -pt can be evaluated by ENT in outpatient setting Abbi in urine -pt was asymptomatic at admission -urine culture was from previous admission and was not treated -likely abbi came from perineal region rather than urine -ID consulted: likely colonization, change johnson If not already done. Consider voiding trial. GI Prophylaxis: Pantoprazole PO DVT Prophylaxis: SCDs Disposition: Stable for Transfer to F. Overall pt has quickly stabilized since admission. She canbe transferred to F. Will restart all home meds, except metoprolol will be restarted at half the home dose. This note was written by a medical student. Plan is not finalized until resident/attending add an attestation or addendum. Cosigned by Elizabeth Tyler MD at 08/14/2024 1:01 PM EDT Associated attestation - Elizabeth Tyler MD - 08/14/2024 1:01 PM EDT I have personally performed a mzrs-fy-sals diagnostic evaluation on this patient on date of /12/24. History, labs, imaging studies, and electronic medical record have been reviewed by me. This note documented by the [x]warehouse incentive selector []TONJA reflects my history, exam, and medical decision making. I have reviewed and agree with the care plan. Changes were made in the orders as necessary. ROS documentation was reviewed and negative unless otherwise stated in HPI. Additional pertinent interval history, ROS, and physical exam findings: Reporting chest congestion, difficulty expectorating. Weaned from NIV Assessment and Plan: Acute on chronic hypoxic and hypercarbic respiratory failure- suspect COPD primary issue (flaring post COVID 19 infection). Off NIV. Increase scheduled duonebs, resume dulera. Slow prednisone taper. Doubt active infection- stop antibiotics and observe. Appreciate ID input regarding mastoiditis andcandiduria. Staph Epi bacteremia- ?contaminant- has indwelling line. Repeat cultures. Vancomycin at least x 1, discuss with ID. ESRD on HD- tolerated HD, improved acidosis with this. Thrombocytopenia- improving, likely acute illness related, but continue to hold heparin, await HIT.Can resume antiplatelet therapy. OK to transfer to floor. Pulmonary to follow on floor. * Bernadette Abraham RRT - 08/14/2024 12:36 AM EDT [facility] Respiratory Care Department Progress Note Comment or reasoning for refusal: Patient was seen in attempts to fulfill CPAP/BiPAP/AutoPAP order. Patient refused PAP therapy/studyat this time. Patient was educated on medical need and reasoning for physician order to ensure patient was making an informed medical decision. All of the patient's questions were answered at this time and patient was informed that if the patient changes their mind regarding wearing PAP to hit their call light or inform their nurse to contact Respiratory. A second, consecutive night of refusing PAP therapy/study results in order completion in the EMR. If future CPAP/BiPAP/AutoPAP therapy or study is indicated please place another order in the EMR and the assigned Respiratory Therapist will reattempt to fulfill orders. Reason for refusal: Pt refusing NIV att. OK for NIV standby per Dr. Costa Thank you for involving Respiratory in the care of this patient, * Lidia Rojas RD - 08/13/2024 8:34 AM EDT Nutrition Assessment Type and Reason for Visit: Initial, Positive Nutrition Screen (pressure ulcer/wound) Nutrition Recommendations/Plan: 1. Pt is currently NPO, observed on NIV and cEEG at time of assessment. Pt with recent admit requiring intubation, was followed by RD and MULTIFOCAL LENS ASSEMBLER, underwent MBSS 08/04 with pureed/mildly thick liquids recs, was later upgraded to regular textures/mildly thick liquids. Per paper chart at [facility] pt was ordered a Soft and Bite Sized Diet with Mildly Thick Liquids. Did not appear to be receiving ONS. Recommend pt not be without nutrition for >72 hours if medically able. --> if pt is able to advance oral diet, consider goal of ALLI, CHO Controlled and monitor renal labs and need for additional therapeutic restrictions in setting of ESRD/HD. Consider MULTIFOCAL LENS ASSEMBLER evaluation for texture/consistency recommendations. Do feel that pt would benefit from ONS- consider Ensure HP vs Magic Cup pending liquid consistency recommendations. --> should pt require nutrition via alternate route, consider Nepro with CHO Steady @ goal rate of 40mls/hr to provide 1728kcals, 77gm protein, 697mL free fluid (29kcals/kg, 1.3gm/kg IBW). 2. Will monitor tolerance of nutrition as able to be initiated via appropriate route 3. Will continue to monitor weight changes, labs and overall nutrition status 4. RD will continue to follow up weekly Malnutrition Assessment: Malnutrition Status: Insufficient data (need further clarification on PO intake SLITTING AND SHIPPING SUPERVISOR, pt weight appeared to be downtrending during recent admit however is now back up to similar weight at start of recent admit, will continue to monitor criteria) Context: Acute Illness Findings of the 6 clinical characteristics of malnutrition: Energy Intake: Unable to assess (during recent admit pt required intubation and EN, s/p MBSS with altered consistency diet recs, at [facility] pt was ordered soft and bite sized/mildly thick liquids, unclear intake SLITTING AND SHIPPING 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, pt is currently NPO and requiring NIV) Weight Loss: (CBW 136# no method on 08/13, was 126# bedscale on 08/12 presentation, no weight history prior to recent admit --> 07/28/24: 134# bedscale, 08/07/24: 126# bedscale, appears pt weight was downtrending during recent admit) Body Fat Loss: Unable to assess (deferred at this time 2/2 AMS and NIV requirements, also cEEG underway) Muscle Mass Loss: Unable to assess (deferred at this time 2/2 AMS and NIV requirements, also cEEG underway) Fluid Accumulation: Mild (BUE pitting, BLE non-pitting per flowsheets) Digital Archivist Strength: Not Performed Nutrition Assessment: pt with PMH significant for COPD (4L NC at baseline), ESRD on HD, DM1, HLD and recent admission to ICU for septic shock and subdural hematoma (07/26-08/10/24) who presented to [facility] ED on 08/12/24 in respiratory distress, pt was d/c to [facility] following recent admit and was found with altered mentation, nasal cannula was taken off and pulse ox at 80%, pt brought to [facility] ED for assessment, in the ED mental status was improving on nonrebreather but VBG revealed pH of 7.09, with pCO2 at 101, pt wasplaced on NIV and ICU was consulted, pt required placement in soft restraints due to repeated attempts to remove mask, labs significant for no leukocytosis, proBNP greater than 30,000, negative lactic acid, CXR demonstrated mild pulmonary edema with small pleural effusions, pt was admitted to ICU for further management of hypercapnic respiratory failure, pt was started on precedex at 20:15 and subsequently developed hypotension around 02:30 this morning, pt was treated with lactated ringers andalbumin, stroke team called due to symptoms of altered mental status left downward gaze deviation, n onsymmetric pupillary size- NCC consulted and imaging obtained including CT perfusion, CT angiogramof the head neck with and without contrast, CT of the head without contrast- results showing interval resolution of right subdural hematoma, no acute vessel occlusion, or stroke identified, noted would favor ruling out metabolic/infectious causes, pt initiated on cEEG. In terms of nutrition pt remains NPO at this time, of note pt was followed by MULTIFOCAL LENS ASSEMBLER during recent admit- she was on altered consistency diet, underwent MBSS on 08/04 with pureed/mildly thick liquids recs, was later upgraded to regular textures/mildly thick liquids on 08/09 prior to d/c, at time of assessment pt is sleeping soundly in bed, NIV in place and pt on cEEG, per paper chart at [facility] ptwas receiving a Soft and Bite Sized Diet with Mildly Thick Liquids, pt CBW 136# no method on 08/13,was 126# bedscale on 08/12 presentation, no weight history prior to recent admit --> 07/28/24: 134# bedscale, 08/07/24: 126# bedscale, appears pt weight was downtrending during recent admit, pt did have Ensure ONS ordered briefly however was d/c when pt was changed to thickened liquids, will continue to monitor clinical course. Estimated Daily Nutrient Needs: Energy Requirements Based On: Kcal/kg Weight Used for Energy Requirements: [place] Weight for Energy Calculation (kg): 59.1 kg Total Energy Requirements (kcals/day): 1655-1891kcals/day Weight Used for Protein Requirements: [place] Weight in Kg Used for Protein Requirements: 59.1 kg Estimated Total Protein (g/day): 71-83gm pro/day Estimated Daily Total Fluid (ml/day): per MD recommendations Nutrition Related Findings: Lives with: Spouse/significant other, Primary Caregiver: Self Orientation Level: Unable to Assess, Cognition: Impulsive, Poor judgement, Poor safety awareness, Unable to follow commands, Best Verbal Response: Confused, Patient Behaviors/Mood: Not interactive Teeth: Missing teeth Swallow: Other (Comment) (NPO) Feeding: Unable to assess Room Service Room Service: Selective Hipolito Scale Score: 12. Wound Type: Wound Consult Pending (bruising noted per flowsheets) Net IO Since Admission: 2,320 mL [08/13/24 1034] Gastrointestinal (WDL): Within Defined Limits Bowel Sounds (All Quadrants): Active Abdomen Inspection: Soft, Nondistended Last BM Date: (DOLORES) Edema: RUE Edema: Pitting, LUE Edema: Pitting, RLE Edema: Non-pitting, LLE Edema: Non-pitting Oxygen Therapy: Supplemental oxygen, O2 Delivery Method: Positive pressure mask, FiO2 (%): 30 %, Labs and meds reviewed: Scheduled: [Held by provider] aspirin, 81 mg, Oral, Daily [Held by provider] atorvastatin, 20 mg, Oral, Nightly busPIRone, 7.5 mg, Oral, BID [Held by provider] clopidogrel, 75 mg, Oral, Daily [Held by provider] fluticasone, 2 spray, Each Nostril, Daily gabapentin, 200 mg, Oral, BID [Held by provider] heparin, 5,000 Units, SubCUTAneous, 2 times per day insulin glargine, 2 Units, SubCUTAneous, Nightly insulin lispro, 0-6 Units, SubCUTAneous, q6h ipratropium-albuterol, 3 mL, Nebulization, TID lisinopril, 2.5 mg, Oral, Daily [Held by provider] metoprolol tartrate, 50 mg, Oral, BID mirtazapine, 7.5 mg, Oral, Nightly [Held by provider] mometasone-formoterol, 2 puff, Inhalation, BID mupirocin, 1 Application, Nasal, BID QUEtiapine, 25 mg, Oral, Nightly [Held by provider] tiotropium, 2 puff, Inhalation, Daily Continuous: none Current Nutrition Therapies: NPO diet with enteral medications Current Oral Intake Average Meal Intake: NPO Average Supplements Intake: NPO Anthropometric Measures: Height: 167.6 cm (5' 6) Current Body Weight: 61.7 kg (136 lb) (no method 08/13) Weight Source: Not Specified Admission Body Weight: 57.2 kg (126 lb) (bedscale 08/12) Usual Body Weight: (no weight history prior to recent admit --> 07/28/24: 134# bedscale, 08/07/24:126# bedscale) [place] Body Weight (lbs) (Calculated): 130 lbs [place] Body Weight (Kg) (Calculated): 59 kg % [place] Body Weight (Calculated): 104.6 % BMI (kg/m2) (Calculated): 22 Weight Adjustment For: No Adjustment BMI Categories: Normal Weight (BMI 18.5-24.9) Wt Readings from Last 10 Encounters: 08/13/24 62 kg (136 lb 11 oz) 08/07/24 57.4 kg (126 lb 8.7 oz) Nutrition Diagnosis: Inadequate oral intake related to impaired respiratory function as evidenced by NPO or clear liquidstatus due to medical condition (NIV) Nutrition Interventions: Nutrition Education/Counseling: No recommendation at this time Coordination of Nutrition Care: Continue to monitor while inpatient Goals: Goals: Initiate PO diet, within 2 days Nutrition Monitoring and Evaluation: Behavioral-Environmental Outcomes: None Identified Food/Nutrient Intake Outcomes: Diet Advancement/Tolerance Physical Signs/Symptoms Outcomes: Biochemical Data, Chewing or Swallowing, GI Status, Fluid Status or Edema, Hemodynamic Status, Weight, Skin, Nutrition Focused Physical Findings Discharge Planning: Too soon to determine Lidia Rojas RD Contact: available via [employer] or *[phone] * Janell Booker MD - 08/13/2024 6:23 AM EDT ICU Progress Note Name: Sandy Deng : 1960(63 y.o.) Date: 08/13/24 Team: MICU Attending: Dr. Tyler Subjective: Hospital Summary: Sandy Deng is a 63-year-old female with past medical history significant for COPD on 4L NC atbaseline, ESRD on HD, T1DM, and recent admission to ICU for septic shock and subdural hematoma who presents to the ED today in respiratory distress. [facility], and today was found altered, nasal cannula taken off, and pulse ox at 80%. In the ED patient's mental status was improving on nonrebreather but VBG revealed pH of 7.09, with pCO2 at 101.Patient was placed on NIV and ICU was consulted. On evaluation, patient is in soft restraints due to repeated attempts to remove mask while altered,but had regained orientation and was amenable to NIV mask as long as it is removed as soon as I donot need it. Patient's blood pressure had stabilized to 110s/50s, pulse ox at 100%. Patient reports feeling difficulty breathing for the last day or so, but denies any fevers, chills, cough, chest pa in, nausea or vomiting, or changes in bowel movements. Labs significant for no leukocytosis, proBNPgreater than 30,000, negative lactic acid. CXR demonstrates mild pulmonary edema with small pleuraleffusions, looks significantly improved from last admission. Patient was admitted to ICU for further management of hypercapnic respiratory failure. Interval Events: Overnight, nursing states pt originally came to the floor alert and oriented, however she started to become agitated and trying to take her mask off and take out her lines, so she was started on precedex at 20:15. The pt then developed hypotension around 02:30 this morning and was treated with lactated ringers and albumin. Pt developed asymmetric pupils with the left being unresponsive to light around 22:45. The pt was unresponsive for nursing and stroke team was called. Pt had a partial gaze palsy and CT imaging was obtained. CT was negative,however pt developed abnormal movements, so possible seizure was suspected. She is currently on cEEG and neurocritical reported imaging was negative for acute stroke. They gave her a loading dose of keppra. This morning, the pt was not alert and would only respond to physical stimuli intermittently. She would not speak, however she would occasionally do the opposite of commands, other times it seems sheignored the commands. Scheduled Meds: [Held by provider] aspirin, 81 mg, Oral, Daily [Held by provider] atorvastatin, 20 mg, Oral, Nightly busPIRone, 7.5 mg, Oral, BID [Held by provider] clopidogrel, 75 mg, Oral, Daily [Held by provider] fluticasone, 2 spray, Each Nostril, Daily gabapentin, 200 mg, Oral, BID [Held by provider] heparin, 5,000 Units, SubCUTAneous, 2 times per day insulin lispro, 0-6 Units, SubCUTAneous, q6h ipratropium-albuterol, 3 mL, Nebulization, TID levETIRAcetam, 250 mg, IntraVENous, BID [Held by provider] lisinopril, 2.5 mg, Oral, Daily magnesium sulfate, 2,000 mg, IntraVENous, Once methylPREDNISolone sod suc (PF), 40 mg, IntraVENous, q6h [Held by provider] metoprolol tartrate, 50 mg, Oral, BID mirtazapine, 7.5 mg, Oral, Nightly [Held by provider] mometasone-formoterol, 2 puff, Inhalation, BID mupirocin, 1 Application, Nasal, BID QUEtiapine, 25 mg, Oral, Nightly [Held by provider] tiotropium, 2 puff, Inhalation, Daily Objective: Last Vitals: BP MAP (!) 115/40 (08/13/24399) 64 (08/13/24399) Arterial BP MAP Temp 36.8 C (98.3 F) (08/13/24399) Pulse 81 (08/13/24425) Resp 16 (08/13/24399) SpO2 100 % (08/13/24425) Weight 62 kg (136 lb 11 oz) (08/13/24 0549) BMI Body mass index is 22.06 kg/m . I/O: 08/12 0700 - 08/13 659 In: 2480.5 [I.V.:2076] Out: 501 [Urine:501] Ventilator: Resp Rate (Set): 14 FiO2 (%): 30 % Inspiratory Time (sec): 0.9 sec Oxygen Delivery: NIV to NC Invasive Lines / Tubes / Drains: Peripheral IV 08/12/24 Right Antecubital (Active) Number of days: 0 Peripheral IV 08/13/24 Anterior;Right Forearm (Active) Number of days: 0 Urethral Catheter Straight-tip (Active) Number of days: 0 Hemodialysis Cath Double Lumen 08/12/24 Right Tunneled catheter Internal jugular (Active) Number of days: 0 Central Line Indication: Hemodialysis [place] Indications: Hourly I&Os (Critical Care ONLY) Restraints: Restraints Non-Violent Or Non-Self Destructive Aug 12, 2024 2:25 Pm Edt Restraint order already placed. Order is valid for duration of episode. Constitutional: General Appearance [x]WDWN []Obese []Cachectic []Thin [x]Ill Eyes: Inspection of Pupils/Irises Pupils round and react: [x]Yes []No Sclera: []Icteric [x]Non-Icteric Inspection of Conjunctiva/Lids Conjunctiva: []Injected [x]Non-Injected Lids: [x]Intact []Lesion Present ENT/Mouth: External Inspection of ears/nose [x] Normal [] Scar/Lesion/Mass Inspection of teeth/lips/gums Dentition: [][place] Teeth []Dentures Lips/Gums: [x]Intact []Lesion Present Mucosa: [][place] []Moist []Dry Neck: External Appearance Overall Appearance: [x]Normal []Lesion/Mass/Crepitus Present Trachea midline: [x]Yes []No Thyroid []Normal []Enlarged []Tender []Mass []Absent Respiratory: Respiratory effort []Labored [x]Non-Labored [] Mechanically-Ventilated Auscultation [x]Clear []Crackles []Wheezes [][place] Cardiovascular: Auscultation Rate: [x]Regular []Irregular []Tachycardia []Bradycardia Rhythm: [x]Regular []Irregular Murmur: []Present [x]Absent Extremities Peripheral Edema: []Present [x]Absent Varicosities: []Present [x]Absent Gastrointestinal: Abdomen Palpation: []Soft [x]Firm []Tender []Non-Tender []Distended [x]Non-distended Mass: []Present []Absent Bowel Sounds: [x]Present []Absent Hernia: []Present []Absent Liver/Spleen: []Hepatosplenomegaly []Organomegaly Absent Musculoskeletal: Inspection of Digits and Nails Cyanosis: []Present [x]Absent Clubbing: []Present [x]Absent Ischemia: []Present [x]Absent Infection: []Present [x]Absent Extremities ROCHE Equally: Except ([]RUE []RLE []LUE []LLE) Strength/Tone: Intact and Normal ([]RUE []RLE []LUE []LLE) Skin: Inspection [x]Normal []Rash []Lesion []Ulcer Palpation [x]Warm []Cool [x]Dry []Clammy []Nodules []Induration []Skin-tightening Cap-Refill: [] <3 sec [] >3 seconds (delayed) Neurologic: GCS EYE: 1 - No eye opening GCS MOTOR: 4 - Withdraws from pain GCS VERBAL: 1 - No response Total GCS: 6 [] Sensation grossly intact Psych: Mental Status Alert: []Yes [x] No Oriented: [x]x0 []X1 []X2 []x3 Mood/Affect []Normal []Flat []Agitated []Depressed []Anxious []Calm [x]Sedated []NAD The pt's nurse let me know that she was alert and oriented to person and time. I re-evaluated the pt at that time. Her GCS was 14, she is not oriented to place only. She follows commands appropriately and answers questions coherently. The pt denies CP, SOB, NV, and any other pain at this time. Pt is intermittently somnolent, but will awaken to loud voice and tapping her hand. Pt is calm and in NAD. She is satting 100% on NC. [facility] within last 24 hours BMP: Recent Labs 08/12/24 1337 08/12/24233208/13/24 0507 NA 132* 130* 134* K 3.6 4.2 3.7 CL 100 100 103 CO2 28 22 19* BUN 19* 20* 18* CREATININE 2.38* 2.56* 2.43* CALCIUM 6.6* 6.9* 7.1* MG -- -- 1.5* PHOS -- -- 3.0 LFTs: Recent Labs 08/12/24 23308/13/24 1046 AST 18 -- ALT 13 -- PROT 5.2* -- ALBUMIN 2.9* -- BILITOT 0.9 -- BILIRUBINU -- Negative ALKPHOS 52 -- Glucose: Recent Labs 08/10/24 0735 08/10/24 0824 08/10/24 0911 08/10/24 1005 08/10/24 1126 08/10/24 1318 08/11/24 0600 08/12/24 1337 08/12/24 1820 08/12/24 2333 08/13/24 0057 08/13/24 0507 08/13/24 0509 GLUCOSE 61* -- -- -- -- -- 360* 229* -- 220* -- 211* -- POCGLU -- 103* 96 102* 109* 119* -- -- 259* -- 252* -- 253* CBC: Recent Labs 08/12/24 1337 08/12/24 1604 08/12/24 1820 08/12/24 2333 08/13/24 0057 08/13/24 0507 08/13/24 0658 08/13/24 0918 WBC 4.8 -- 3.8 -- -- 2.5* -- -- HGB 9.1 7.9* < > 6.9* < > 8.7* 6.7* 8.3 9.2* HCT 26.5* -- 22.3* -- 27.5* 21.0* -- 28.3* PLT 89* -- 85* -- -- 65* -- -- MCV 95.3 -- 93.3 -- -- 93.3 -- -- RDW 16.5* -- 16.4* -- -- 16.1* -- -- < > = values in this interval not displayed. ABGs: Recent Labs 08/12/24 1604 08/12/24 23308/13/24 0658 PHART -- -- 7.291* QOV1OUO -- -- 49.4* PO2ART -- -- 84.7 [id number] -- -- 23.3 [id number] Bi-PAP 30% Oxygen 30% Oxygen Lactic Acid: Recent Labs 08/12/24 1337 08/13/24 0649 LACTATE 1.6 <0.5* Cardiac Injury Profile: Recent Labs 08/13/24 0612 08/13/24 0924 08/13/24 1045 TROPONINI 0.065* 0.073* 0.070* LACTATE DEHYDROGENASE Date/Time Value Ref Range Status 08/13/2024 06:12 AM 184 120 - 246 U/L Final HAPTOGLOBIN Date/Time Value Ref Range Status 08/13/2024 06:12 AM 44.2 30.0 - 200.0 mg/dL Final BETA HYDROXYBUTYRATE Date/Time Value Ref Range Status 08/13/2024 06:12 AM 33.80 (H) 0.20 - 2.81 mg/dL Final Labs in Last 3 months: Lab Results Component Value Date TSH 3.472 07/26/2024 Microbiology Urine Cx: Lab Results Component Value Date URINECX Culture in progress 08/09/2024 URINECX >100,000 CFU/mL Abbi albicans (A) 08/09/2024 Blood Cx: Lab Results Component Value Date BLOODCX Blood culture incubation started 08/12/2024 BLOODCX Blood culture incubation started 08/12/2024 Sputum Cx: Lab Results Component Value Date RESPCULT Rare respiratory keven present. 07/27/2024 RESPCULT Few Staphylococcus aureus (A) 07/27/2024 Gram Stain: Lab Results Component Value Date LABGRAM (A) 07/27/2024 Many Polymorphonuclear leukocytes per low power field LABGRAM Few Epithelial cells per low power field (A) 07/27/2024 LABGRAM Moderate Gram positive cocci (A) 07/27/2024 Resp Pathogens PCR: negative Legionella Ag: Lab Results Component Value Date LEGIONELLAPN Not Detected 07/27/2024 Strep Ag: Streptococcus pneumoniae Date/Time Value Ref Range Status 07/27/2024 02:53 AM Not Detected Not Detected Final Imaging CT head wo IV contrast Final Result 1. Interval resolution of tiny right subdural hematoma. 2. Bilateral mastoiditis and left otitis media, new compared to 07/26/2024. 3. ASPECTS: [address] ANGIOGRAPHY HEAD AND NECK: Clinical Indication: Inpatient; 63-year-old female; new gaze deviation with pupil asymmetry; patient receiving dialysis tomorrow; stroke team called Scan Parameters: CT perfusion: Following non-contrast CT through the head, dynamic 4D CT angiograms of the intracranial vessels and CT Perfusion study of the whole brain were performed after IV contrast. The data setwas post processed 4D CT angiograms, 3-D shaded surface display CT angiograms, and color coded CT pe rfusion maps of cerebral blood volume, mean transit time, and cerebral blood flow. CTA head and neck: Multiple axial CT images were obtained of the head and neck after administrationof IV contrast with coronal and sagittal reconstructs. The CT angiographic studies of the extracranial vessels were post processed with MIP imaging. Measurement of carotid stenosis is a ratio based on conventional angiographic data from the NASCET trials with the smallest caliber of the internal carotid as the numerator and normal post-stenotic internal carotid caliber as denominator. Dose reduction was employed with automated exposure control. Contrast: 100 mL of Isovue-370 IV contrast Comparison: CT head 07/26/2024 Findings: CT perfusion studies: No global or regional perfusion abnormalities are noted on the TTP, MTT, CBV,or CBF maps. There is no core infarct, there is no atrophy risk territory, and there is no mismatchpenumbra. Aortic arch: The aortic arch demonstrates normal caliber. There are no significant atherosclerotic calcifications at the aortic arch. There is no stenosis at the origin of the three-vessel takeoff. Right carotid: Mild atherosclerotic calcifications are present along the common carotid artery and internal. The right internal carotid artery demonstrates minimal stenosis near the origin in the range of less than 30 percent. Patent flow extends into the intracranial circulation. Left carotid: Mild atherosclerotic calcifications are present along the common carotid artery and internal. The left internal carotid artery demonstrates minimal stenosis near the origin in the rangeof less than 30 percent. Patent flow extends into the intracranial circulation. Vertebral arteries: There is patent antegrade flow noted within the vertebral arteries. Intracranial arteries: Patent flow is identified throughout the anterior, middle and posterior cerebral arteries. No vascular malformation or aneurysm above 3 mm in caliber is identified. The regionsof the anterior and posterior communicating arteries are unremarkable. Atherosclerotic calcifications are present along the supraclinoid portion of bilateral internal carotid arteries. Neck: There is no adenopathy. The salivary glands are within normal limits. The airway is patent. The thyroid gland contour is normal. Esophagus is decompressed. The epiglottis is normal. Lung apices: There is a large right pleural effusion and a small left pleural effusion with compressive atelectasis. Severe centrilobular emphysema is present within the lung apices. Osseous structures: The osseous structures are intact. Mild endplate spurring is present along the cervical spine.. IMPRESSION: 1. Interval resolution of tiny RIGHT subdural hematoma. 2. BILATERAL mastoiditis and LEFT otitis media, new compared to 07/26/2024. 3. Perfusion exam demonstrates no acute infarct or at risk territory. 4. CTA demonstrates no large vessel occlusion. 5. Large right and small left pleural effusion with compressive atelectasis and/or infiltrate. Severe centrilobular emphysema. CRITICAL TEST COMMUNICATION: Dr. Nuñez was notified by telephone today at 11:01pm. Report Dictated on Electronically Signed By: Otilia Wiley MD Electronically Signed Date/Time: 08/12/2024 11:12 PM EDT CTA head neck angio w and wo IV contrast Final Result 1. Interval resolution of tiny right subdural hematoma. 2. Bilateral mastoiditis and left otitis media, new compared to 07/26/2024. 3. ASPECTS: [address] ANGIOGRAPHY HEAD AND NECK: Clinical Indication: Inpatient; 63-year-old female; new gaze deviation with pupil asymmetry; patient receiving dialysis tomorrow; stroke team called Scan Parameters: CT perfusion: Following non-contrast CT through the head, dynamic 4D CT angiograms of the intracranial vessels and CT Perfusion study of the whole brain were performed after IV contrast. The data setwas post processed 4D CT angiograms, 3-D shaded surface display CT angiograms, and color coded CT pe rfusion maps of cerebral blood volume, mean transit time, and cerebral blood flow. CTA head and neck: Multiple axial CT images were obtained of the head and neck after administrationof IV contrast with coronal and sagittal reconstructs. The CT angiographic studies of the extracranial vessels were post processed with MIP imaging. Measurement of carotid stenosis is a ratio based on conventional angiographic data from the NASCET trials with the smallest caliber of the internal carotid as the numerator and normal post-stenotic internal carotid caliber as denominator. Dose reduction was employed with automated exposure control. Contrast: 100 mL of Isovue-370 IV contrast Comparison: CT head 07/26/2024 Findings: CT perfusion studies: No global or regional perfusion abnormalities are noted on the TTP, MTT, CBV,or CBF maps. There is no core infarct, there is no atrophy risk territory, and there is no mismatchpenumbra. Aortic arch: The aortic arch demonstrates normal caliber. There are no significant atherosclerotic calcifications at the aortic arch. There is no stenosis at the origin of the three-vessel takeoff. Right carotid: Mild atherosclerotic calcifications are present along the common carotid artery and internal. The right internal carotid artery demonstrates minimal stenosis near the origin in the range of less than 30 percent. Patent flow extends into the intracranial circulation. Left carotid: Mild atherosclerotic calcifications are present along the common carotid artery and internal. The left internal carotid artery demonstrates minimal stenosis near the origin in the rangeof less than 30 percent. Patent flow extends into the intracranial circulation. Vertebral arteries: There is patent antegrade flow noted within the vertebral arteries. Intracranial arteries: Patent flow is identified throughout the anterior, middle and posterior cerebral arteries. No vascular malformation or aneurysm above 3 mm in caliber is identified. The regionsof the anterior and posterior communicating arteries are unremarkable. Atherosclerotic calcifications are present along the supraclinoid portion of bilateral internal carotid arteries. Neck: There is no adenopathy. The salivary glands are within normal limits. The airway is patent. The thyroid gland contour is normal. Esophagus is decompressed. The epiglottis is normal. Lung apices: There is a large right pleural effusion and a small left pleural effusion with compressive atelectasis. Severe centrilobular emphysema is present within the lung apices. Osseous structures: The osseous structures are intact. Mild endplate spurring is present along the cervical spine.. IMPRESSION: 1. Interval resolution of tiny RIGHT subdural hematoma. 2. BILATERAL mastoiditis and LEFT otitis media, new compared to 07/26/2024. 3. Perfusion exam demonstrates no acute infarct or at risk territory. 4. CTA demonstrates no large vessel occlusion. 5. Large right and small left pleural effusion with compressive atelectasis and/or infiltrate. Severe centrilobular emphysema. CRITICAL TEST COMMUNICATION: Dr. Nuñez was notified by telephone today at 11:01pm. Report Dictated on Electronically Signed By: Otilia Wiley MD Electronically Signed Date/Time: 08/12/2024 11:[address] PERFUSION Final Result 1. Interval resolution of tiny right subdural hematoma. 2. Bilateral mastoiditis and left otitis media, new compared to 07/26/2024. 3. ASPECTS: [address] ANGIOGRAPHY HEAD AND NECK: Clinical Indication: Inpatient; 63-year-old female; new gaze deviation with pupil asymmetry; patient receiving dialysis tomorrow; stroke team called Scan Parameters: CT perfusion: Following non-contrast CT through the head, dynamic 4D CT angiograms of the intracranial vessels and CT Perfusion study of the whole brain were performed after IV contrast. The data setwas post processed 4D CT angiograms, 3-D shaded surface display CT angiograms, and color coded CT pe rfusion maps of cerebral blood volume, mean transit time, and cerebral blood flow. CTA head and neck: Multiple axial CT images were obtained of the head and neck after administrationof IV contrast with coronal and sagittal reconstructs. The CT angiographic studies of the extracranial vessels were post processed with MIP imaging. Measurement of carotid stenosis is a ratio based on conventional angiographic data from the NASCET trials with the smallest caliber of the internal carotid as the numerator and normal post-stenotic internal carotid caliber as denominator. Dose reduction was employed with automated exposure control. Contrast: 100 mL of Isovue-370 IV contrast Comparison: CT head 07/26/2024 Findings: CT perfusion studies: No global or regional perfusion abnormalities are noted on the TTP, MTT, CBV,or CBF maps. There is no core infarct, there is no atrophy risk territory, and there is no mismatchpenumbra. Aortic arch: The aortic arch demonstrates normal caliber. There are no significant atherosclerotic calcifications at the aortic arch. There is no stenosis at the origin of the three-vessel takeoff. Right carotid: Mild atherosclerotic calcifications are present along the common carotid artery and internal. The right internal carotid artery demonstrates minimal stenosis near the origin in the range of less than 30 percent. Patent flow extends into the intracranial circulation. Left carotid: Mild atherosclerotic calcifications are present along the common carotid artery and internal. The left internal carotid artery demonstrates minimal stenosis near the origin in the rangeof less than 30 percent. Patent flow extends into the intracranial circulation. Vertebral arteries: There is patent antegrade flow noted within the vertebral arteries. Intracranial arteries: Patent flow is identified throughout the anterior, middle and posterior cerebral arteries. No vascular malformation or aneurysm above 3 mm in caliber is identified. The regionsof the anterior and posterior communicating arteries are unremarkable. Atherosclerotic calcifications are present along the supraclinoid portion of bilateral internal carotid arteries. Neck: There is no adenopathy. The salivary glands are within normal limits. The airway is patent. The thyroid gland contour is normal. Esophagus is decompressed. The epiglottis is normal. Lung apices: There is a large right pleural effusion and a small left pleural effusion with compressive atelectasis. Severe centrilobular emphysema is present within the lung apices. Osseous structures: The osseous structures are intact. Mild endplate spurring is present along the cervical spine.. IMPRESSION: 1. Interval resolution of tiny RIGHT subdural hematoma. 2. BILATERAL mastoiditis and LEFT otitis media, new compared to 07/26/2024. 3. Perfusion exam demonstrates no acute infarct or at risk territory. 4. CTA demonstrates no large vessel occlusion. 5. Large right and small left pleural effusion with compressive atelectasis and/or infiltrate. Severe centrilobular emphysema. CRITICAL TEST COMMUNICATION: Dr. Nuñez was notified by telephone today at 11:01pm. Report Dictated on Electronically Signed By: Otilia Wiley MD Electronically Signed Date/Time: 08/12/2024 11:12 PM EDT XR chest 1 view Final Result Suspect mild pulmonary edema with small pleural effusions. Report Dictated on Electronically Signed By: Kami Brown MD Electronically Signed Date/Time: 08/12/2024 1:13 PM EDT EEG: This continuous EEG with video is abnormal. Continuous diffuse [id number] diffuse slowing is seen unresponsive to stimulation. REM sleep architecture is observed. At times, fronto-centrally predominant fast activity is observed reminiscent of sleep spindles. No interictal epileptiform activity nor seizures are observed. The findings are supportive of a qikyljvx-[id number]-wynehw global encephalopathy non- specific as to etiology. Will continue video-EEG monitoring to evaluate the evolution of this encephalopathy. Assessment and Plan: Principal Problem: Hypercapnic respiratory failure (HCC) Assessment/Plan: Acute hypercapnic and hypoxic respiratroy failure 2/2 AECOPD in setting of chronic resp failure on 4L NC at baseline -switch from NIV to NC -Taper solumedrol 40mg to q24 for 5 days starting tomorrow, pt has received two doses today -repeat VBG shows improvement in hypercarbia, pt continue to be acidotic Acute metabolic encephalopathy -neurocritical team following -loading dose keppra given -imaging currently shows no evidence of stroke -uncertain if keppra is contributing to AMS -EEG seems to show no seizure activity so far per Dr. Diaz. Will discontinue keppra and cEEG -EEG consistent with encephalopathy Mixed respiratory and metabolic acidosis -pt presented in hypercapnic RF, pCO2 improved with NIV -pt remains acidotic with decreased bicarb this morning (was normal at presentation) -pt recently had a decrease in basal insulin during previous admission due to episodes of hypoglycemia. Possible DKA with elevated BHB -normal anion gap Normocytic Anemia -Pt has been hospitalized multiple times over past month likely contributing to decreased Hgb -Recent baseline appears to be around Hgb 8 -Pt required 1 unit pRBC on 08/12 for Hgb 6.9, this morning patient was found to be 6.7 requiring 1additional unit pRBC, Hgb now 9.2 -Pt shows no signs of acute bleed, will continue to monitor Hgb Demand ischemia -elevated troponins- 0.046>0.046>0.052 -pt has hx of stent and NSTEMI -will trend troponins Mastoiditis on CT, new finding -consult ID, will appreciate recommendations -concern that pt's thrombocytopenia may be d/t dose of zosyn received yesterday- will defer abx until ID gives recs Abbi in urine -pt was asymptomatic at admission -urine culture was from previous admission and was not treated -likely abbi came from perineal region rather than urine -ID consulted, will appreciate recs Pancytopenia -pt received 1.5L LR bolus and 50g of albumin prior to the CBC -possible HIT from subQ heparin she received during previous admission, possibly from dose of zosynreceived in ED -HIT Ab ESRD on HD -nephro consult, will appreciate recommendations -pt will be dialyzed today T1DM -hypoglycemia protocol in place -Regular diet ordered, medium-dose sliding scale insulin -2 units NPH now -start 2 units lantus nightly Hx of recent subdural hematoma and recent ICU stay Recent hx of septic shock 2/2 CTX-M pseudomonas and staph aureus PNA with COVID- 19 infection -low suspicion for persisting PNA at this time, will continue to monitor for development of signs of infection GI Prophylaxis: Pantoprazole PO DVT Prophylaxis: SCDs Disposition: Remain in ICU Status This note was written by a medical student. Plan is not finalized until resident/attending add an attestation or addendum. Cosigned by Elizabeth yTler MD at 08/13/2024 4:29 PM EDT Associated attestation - Elizabeth Tyler MD - 08/13/2024 4:29 PM EDT I have personally performed a [id number] diagnostic evaluation on this patient on date of zkosycf46/11/24. History, labs, imaging studies, and electronic medical record have been reviewed by me. This note documented by the [x]warehouse incentive selector []TONJA reflects my history, exam, and medical decision making. I have reviewed and agree with the care plan. Changes were made in the orders as necessary. ROS documentation was reviewed and negative unless otherwise stated in HPI. Additional pertinent interval history, ROS, and physical exam findings: Neurologic changes noted overnight. Platelets and Hgb down- transfused. Assessment and Plan: Trial off NIV- hypercarbia improved AECOPD- fu PCR. Continue steroids and bronchodilators. Metabolic acidosis- dialysis planned today. Anemia/thrombocytopenia- ?etiology. HIT panel. Hold heparin. May be related to Zosyn. No overt bleeding. Question mastoiditis and candiduria- ID consulted. Not currently on antimicrobial therapy. Resume basal insulin (although very low insulin requirements) cautiously Total critical care time for this patient with life-threatening unstable organ failure, including direct patient contact, management of life support systems, review of data including imaging and labs, and discussions with other team members and physicians at least 40 minutes so far today, excludingprocedures. documented in this [facility]10-21-2024 Nurse Note* Liliana Mott - 08/23/2024 3:02 PM EDT Patient Name: Sandy Deng Patient : 1960 Acct: [id number] Date of Admission: 08/12/2024 Room[facility]Bed: [facility] A Code Status: Full Code Allergies: No Known Allergies Diagnosis: Patient Active Problem List Diagnosis SDH (subdural hematoma) (HCC) COPD (chronic obstructive pulmonary disease) (HCC) Type 1 diabetes mellitus with kidney complication (HCC) Myocardial infarction (HCC) Hyperlipidemia Diabetic neuropathy associated with type 1 diabetes mellitus (HCC) Stage 4 chronic kidney disease (HCC) Acute renal failure (HCC) Anemia Anxiety disorder due to medical condition Atherosclerosis of coronary artery Chest pain Chronic constipation Cigarette smoker [place]'s sign present Depressive disorder Diabetic ketoacidosis (CMS/HCC) (HCC) Diabetic polyneuropathy (CMS/HCC) (HCC) Dizziness Gastroparesis History of coronary artery stent placement Hypocalcemia Hypoglycemia Injury of kidney Intermittent palpitations Intractable vomiting with nausea Multiple pulmonary nodules Nicotine dependence Hypertension Respiratory failure with hypoxia (HCC) Skin lesion of foot Solitary pulmonary nodule Underweight Wheezing Hypercapnic respiratory failure (HCC) Treatment: Hemodilaysis 2:1 Priority: Routine Location: Acute Room Diabetic: Yes NPO: No Isolation Precautions: Dialysis Consent for Treatment Verified: Yes Blood Consent Verified: Not Applicable ICEBOAT: Identify, Consent, Equipment, HepB Status, Orders Complete, Access Verified, Timeliness (o2 and suction functional @ bedside) Second Clinician Verifying: Matteo Keller RN Time out performed prior to access at 1420. Report Received from Primary RN at 1021. Primary RN (First Initial, Last Name, Title): Devon Rene RN Incapacitated Nurse Education Completed: Yenny Keller RN HBsAg ONLY: Date Drawn: July 27, 2024 Results: Negative HBsAb: Date Drawn: July 27, 2024 Results: Susceptible <10 Order Dialyzer: Nipro Na+ Modeling: Not Applicable Dialysate Temperature (C): 36 Blood Flow Rate (BFR): 400 Dialysate Flow Rate (DFR): 600 Access to be Utilized Access: Tunneled Catheter Location: Internal Jugular Side: Right Needle gauge: Not Applicable + Bruit/Thrill: Not Applicable First Use X-ray Verified: Yes OK to use line order: Yes Site Assessment: Signs and Symptoms of Infection/Inflammation: None If yes: Not Applicable Dressing: Dry and Intact Site Prep: Medical Aseptic Technique Dressing Changed this Treatment: No If yes, by whom: NA - not changed today Date of Last Dressing Change: August 21, [address]?: Yes Red Alcohol Caps in place?: Yes Gauze Dressing?: No Non-Dialysis Use?: No Comment: Flows: Good If access problem, who was notified: Pre and Post-Assessment Patient Vitals for the past 8 hrs: Level of Consciousness Heart Rhythm O2 Device Bilateral Breath Sounds Skin Condition/Temp Abdomen Inspection Bowel Sounds (All Quadrants) 08/23/24 1420 Alert (0) Regular Nasal cannula Diminished Warm;Dry Soft;Rounded Audible 08/23/24 1726 Alert (0) Regular -- -- -- -- -- Labs Lab Results Component Value Date/Time WBC 4.4 08/23/2024313 HGB 8.2 (L) 08/23/2024313 HGB 10.2 08/21/2024 1432 HCT 25.5 (L) 08/23/2024313 PLT 167 08/23/2024313 NA 130 (L) 08/23/2024313 K 4.0 08/23/2024313 CL 99 08/23/2024313 CO2 27 08/23/2024313 BUN 37 (H) 08/23/2024313 CREATININE 3.39 (H) 08/23/2024313 CALCIUM 7.3 (L) 08/23/2024313 PHOS 2.5 08/23/2024313 IV Drips and Rate/Dose Safety - Before each treatment: Dialysis Machine No.: [id number] Machine Number: [id number] Dialyzer Lot No.: [id number] Tubing Lot Number: [id number] All Connections Secure: Yes Venous Parameters Set: Yes Arterial Parameters Set: Yes NS Bag: Yes Saline Line Double Clamped: Yes Dialyzer: Nipro Prime Volume (mL): 200 mL RO Machine Number: [id number] RO Machine Log Sheet Completed: Yes Machine Alarm Self Test: Completed, Passed (2625) (08/23/24 1323) Air Foam Detector: Tested, Proper Function, pH Reading Extracorporeal Circuit Tested for Integrity: Yes Machine Conductivity: 13.6 Manual Conductivity: 13.6 Manual Ph: 7 Bleach Test (Neg): Yes Bath Temperature: 36 C (96.8 F) Conductivity Meter Serial #: [id number] Machine Functioning Alarm Free? Yes Dialysis Bath: K+ (Potassium): 4 Ca+ (Calcium): 2.5 Na+ (Sodium): 137 HCO3 (Bicarb): 35 Bicarbonate Concentrate Lot No.: [id number] Acid Concentrate Lot No.: [id number] Chlorine Testing - Before each treatment and every 4 hours: Time On: 1426 Time Off: 1726 Treatment Goal: 2-3L as tolerated Weight Height: 167.6 cm (5' 6) (08/22/249) Weight: 55.4 kg (122 lb 2.2 oz) (08/23/24636) BMI (Calculated): 19.72 (08/23/24636) 1st check: less than 0.1 ppm at: 1145 2nd check: less than 0.1 ppm at: 1445 3rd check: Not Applicable (if greater than 0.1 ppm, then check every 30 minutes from secondary) Access Flows and Pressures Patient Vitals for the past 8 hrs: Blood Flow Rate (mL/min) Ultrafiltration Rate (ml/hr) Arterial Pressure (mmHg) Venous Pressure (mmHg) TMP DFR Access Visible Intra-Hemodialysis Comments 08/23/24 1420 -- -- -- -- -- -- Yes pt aware of call light within reach and educated on use of calllight 08/23/24 1426 200 mL/min 1000 ml/hr -30 mmHg 20 mmHg 70 600 Yes tx iniated lines secured pt stable 08/23/24 1428 400 mL/min 1000 ml/hr -110 mmHg 90 mmHg 80 600 Yes bfr increased 08/23/24 1445 400 mL/min 1000 ml/hr -120 mmHg 120 mmHg 70 600 Yes pt stable, uf removed is 350 08/23/24 1500 400 mL/min 1000 ml/hr -120 mmHg 120 mmHg 70 600 Yes pt resting, uf removed is 560 08/23/24 1515 400 mL/min 1000 ml/hr -130 mmHg 120 mmHg 80 600 Yes pt stable 830 removed 08/23/24 1530 400 mL/min 1000 ml/hr -130 mmHg 120 mmHg 70 600 Yes pt alert, stable, removed 1073 08/23/24 1545 400 mL/min 1000 ml/hr -130 mmHg 120 mmHg 70 600 Yes pt resting, uf removed is 1299 08/23/24 1600 400 mL/min 1000 ml/hr -130 mmHg 120 mmHg 70 600 Yes pt awake and stable. uf removed is 1640 08/23/24 1615 400 mL/min 1000 ml/hr -130 mmHg 120 mmHg 70 600 Yes pt stable, uf removed is 1800 08/23/24 1630 400 mL/min 1000 ml/hr -130 mmHg 120 mmHg 80 600 Yes pt stable, lines secured. uf removed is 204908/23/24 1645 400 mL/min 710 ml/hr -130 mmHg 130 mmHg 70 600 Yes checked pt's blood sugar, pt asked. it was 127. uf removed is 2342. lowered goal to 2800 08/23/24 1700 400 mL/min 710 ml/hr -130 mmHg 130 mmHg 70 600 Yes pt alert, stable, removed 2518 08/23/24 1715 400 mL/min 710 ml/hr -130 mmHg 130 mmHg 70 600 Yes pt resting, removed 2653 08/23/24 1726 -- -- -- -- -- -- Yes tx complete pt stable 2800 removed Vital Signs Patient Vitals for the past 24 hrs: BP Temp Temp src Pulse Resp SpO2 Height Weight 08/23/24 1729 120/50 -- -- 66 -- -- -- -- 08/23/24 1726 121/54 36.4 C (97.6 F) -- 71 16 100 % -- -- 08/23/24 1715 112/52 -- -- 71 -- -- -- -- 08/23/24 1700 110/51 -- -- 76 -- -- -- -- 08/23/24 1645 (!) 98/47 -- -- 72 -- -- -- -- 08/23/24 1630 (!) 107/47 -- -- 72 -- -- -- -- 08/23/24 1615 (!) 103/46 -- -- 73 -- -- -- -- 08/23/24 1600 (!) 104/47 -- -- 73 -- -- -- -- 08/23/24 1545 (!) 104/45 -- -- 74 -- -- -- -- 08/23/24 1530 (!) 104/43 -- -- 76 -- -- -- -- 08/23/24 1515 (!) 108/48 -- -- 76 -- -- -- -- 08/23/24 1500 (!) 112/49 -- -- 77 -- -- -- -- 08/23/24 1445 125/53 -- -- 79 -- -- -- -- 08/23/24 1428 143/59 -- -- 83 -- -- -- -- 08/23/24 1426 128/58 -- -- 83 -- -- -- -- 08/23/24 1420 (!) 124/48 36.7 C (98.1 F) -- 85 16 100 % -- -- 08/23/24 1133 -- -- -- 78 16 -- -- -- 08/23/24 0759 -- -- -- 74 16 100 % -- -- 08/23/24 0749 -- -- -- 75 18 95 % -- -- 08/23/24 0741 141/68 36.3 C (97.3 F) Temporal 76 18 97 % -- -- 08/23/24 0637 -- -- -- -- -- -- -- 55.4 kg (122 lb 2.2 oz) 08/22/242328 144/60 36.9 C (98.4 F) Temporal 83 16 100 % 1.676 m (5' 6) 56 kg (123 lb 8 oz) 08/22/242052 151/69 37.1 C (98.7 F) Temporal 84 19 100 % -- -- 08/22/242037 -- -- -- 82 -- 100 % -- -- 08/22/242028 -- -- -- 83 16 100 % -- -- Post-Dialysis Arterial Catheter Locking Solution: Heparin (1000units:1ml) Volume (ml): 1.6 Venous Catheter Locking Solution: Heparin (1000units:1ml) Volume (ml): 1.7 Post-Treatment Procedures: Blood returned, Catheter capped, clamped and heparinized x 2 ports Machine Disinfection Process: Exterior Machine Disinfection Rinseback Volume (mL): 300 mL Total Liters Processed (L/min): 66.8 L/min Dialyzer Clearance: Lightly streaked Hemodialysis Intake (ml): 500 ml Hemodialysis Output (ml): 2800 ml NET Removed (ml): 2300 ml Tolerated Treatment: Good Interventions Taken: Ultrafiltration goal decreased Patient Response to Treatment: stable Physician Notified: No Patient Disposition: (to US post dialysis) Charge: $ IP Hemodialysis Charge: Hemodialysis Provider Notification Provider Notification Reason for Communication: Evaluate (bladder scan 386mL) Provider Name: Dr. Baptiste Provider Role: Resident Method of Communication: Secure chat Response: No new orders Notification Time: 06 Reason for Communication: Evaluate (bladder scan 386mL) Provider Role: Resident Method of Communication: Secure chat Response: No new orders Notification Time: 06 Handoff complete and report given to Primary RN at 1730. Primary RN (First Initial, Last Name, Title): Devon Rene RN Education Person Educated: Patient Knowledge Base: Substantial Barriers to Learning?: None Preferred method of Learning: Oral Topic(s): call light education, Access Care, Signs and Symptoms of Infection, and Fluid Management Teaching Tools: Explanation Response to Education: Verbalized Understanding * Alea Ellis RN - 08/21/2024 12:45 PM EDT Patient Name: Sandy Deng Patient : 1960 Acct: [id number] Date of Admission: 08/12/2024 [facility] A Code Status: Full Code Allergies: No Known Allergies Diagnosis: Patient Active Problem List Diagnosis SDH (subdural hematoma) (HCC) COPD (chronic obstructive pulmonary disease) (HCC) Type 1 diabetes mellitus with kidney complication (HCC) Myocardial infarction (HCC) Hyperlipidemia Diabetic neuropathy associated with type 1 diabetes mellitus (HCC) Stage 4 chronic kidney disease (HCC) Acute renal failure (HCC) Anemia Anxiety disorder due to medical condition Atherosclerosis of coronary artery Chest pain Chronic constipation Cigarette smoker [place]'s sign present Depressive disorder Diabetic ketoacidosis (CMS/HCC) (HCC) Diabetic polyneuropathy (CMS/HCC) (HCC) Dizziness Gastroparesis History of coronary artery stent placement Hypocalcemia Hypoglycemia Injury of kidney Intermittent palpitations Intractable vomiting with nausea Multiple pulmonary nodules Nicotine dependence Hypertension Respiratory failure with hypoxia (HCC) Skin lesion of foot Solitary pulmonary nodule Underweight Wheezing Hypercapnic respiratory failure (HCC) Treatment: Hemodialysis 1:1 Priority: Routine Location: ICU Diabetic: Yes NPO: Yes Isolation Precautions: Contact Consent for Treatment Verified: Yes Blood Consent Verified: Not Applicable ICEBOAT: Identify, Consent, Equipment, HepB Status, Orders Complete, Access Verified, Timeliness Second Clinician Verifying: Carlos Sanchez RN Time out performed prior to access at 1000. Report Received from Primary RN at 1000 Primary RN (First Initial, Last Name, Title): Carlos Sanchez RN Incapacitated Nurse Education Completed: Yes HBsAg ONLY: Date Drawn: July 27, 2024 Results: Negative HBsAb: Date Drawn: July 27, 2024 Results: Susceptible <10 Order Dialyzer: Nipro Na+ Modeling: Not Applicable Dialysate Temperature (C): 36 Blood Flow Rate (BFR): 450 Dialysate Flow Rate (DFR): 600 Access to be Utilized Access: Tunneled Catheter Location: Internal Jugular Side: Right Needle gauge: Not Applicable + Bruit/Thrill: Not Applicable First Use X-ray Verified: Not Applicable OK to use line order: Not Applicable Site Assessment: Signs and Symptoms of Infection/Inflammation: None If yes: Not Applicable Dressing: Dry and Intact Site Prep: Medical Aseptic Technique Dressing Changed this Treatment: Yes If yes, by whom: Manjeet SORIANO Date of Last Dressing Change: August 21, [address]?: Yes Red Alcohol Caps in place?: Yes Gauze Dressing?: No Non-Dialysis Use?: No Comment: HD machine passed test at 1010/ ph of 7.0 And conductivity of 13.6 Flows: Good and Patent If access problem, who was notified: Pre and Post-Assessment Patient Vitals for the past 8 hrs: Level of Consciousness Oriented X Heart Rhythm Respiratory Pattern O2 Device Bilateral Breath Sounds Skin Color Skin Condition/Temp Appetite Abdomen Inspection Bowel Sounds (All Quadrants) 08/21/24 0753 -- -- -- Tachypnea -- Clear;Diminished [place] Dry;Cool -- Soft;Rounded;Nondistended Active;Audible 08/21/24 1010 Alert (0) -- Regular -- Bi-PAP Diminished [place] Cool;Dry Fair Soft Active 08/21/24 1320 Alert (0) x3 Regular -- Bi-PAP Diminished [place] Cool;Dry Fair Soft Active Labs Lab Results Component Value Date/Time WBC 6.2 08/21/2024 0314 HGB 9.8 08/21/2024 0825 HCT 30.6 (L) 08/21/2024313 PLT 157 08/21/2024313 NA 133 (L) 08/21/2024313 K 3.2 (L) 08/21/2024313 CL 99 08/21/2024313 CO2 27 08/21/2024313 BUN 47 (H) 08/21/2024313 CREATININE 4.52 (H) 08/21/2024313 CALCIUM 7.8 (L) 08/21/2024313 PHOS 3.5 08/21/2024313 IV Drips and Rate/Dose Safety - Before each treatment: Dialysis Machine No.: [id number] RO Machine Number: [id number] Dialyzer Lot No.: [id number] Tubing Lot Number: [id number] All Connections Secure: Yes Venous Parameters Set: Yes Arterial Parameters Set: Yes NS Bag: Yes Saline Line Double Clamped: Yes Dialyzer: Nipro Prime Volume (mL): 200 mL RO Machine Number: [id number] RO Machine Log Sheet Completed: Yes Machine Alarm Self Test: Completed, Passed (08/21/24 1010) Air Foam Detector: Tested, Proper Function, pH Reading Extracorporeal Circuit Tested for Integrity: Yes Machine Conductivity: 13.6 Manual Conductivity: 13.6 Manual Ph: 7 Bleach Test (Neg): Yes Bath Temperature: 36 C (96.8 F) Conductivity Meter Serial #: Machine Functioning Alarm Free? Yes Dialysis Bath: K+ (Potassium): 2 (Changed to 2K Bath per Dr New) Ca+ (Calcium): 2.5 Na+ (Sodium): 137 HCO3 (Bicarb): 35 Bicarbonate Concentrate Lot No.: [id number] Acid Concentrate Lot No.: [id number] Chlorine Testing - Before each treatment and every 4 hours: Time On: 1015 Time Off: 1315 Treatment Goal: 2000 Weight Height: 167.6 cm (5' 6) (08/18/24 1207) Weight: 55.2 kg (121 lb 11.1 oz) (08/21/24 0400) BMI (Calculated): 19.65 (08/21/24 0400) 1st check: less than 0.1 ppm at: 1010 2nd check: less than 0.1 ppm at: 1210 3rd check: Not Applicable (if greater than 0.1 ppm, then check every 30 minutes from secondary) Access Flows and Pressures Patient Vitals for the past 8 hrs: Blood Flow Rate (mL/min) Ultrafiltration Rate (ml/hr) Arterial Pressure (mmHg) Venous Pressure (mmHg) TMP DFR Access Visible Intra-Hemodialysis Comments 08/21/24 1015 150 mL/min 800 ml/hr -60 mmHg 60 mmHg 60 500 Yes vs stable 08/21/24 1030 400 mL/min 800 ml/hr -160 mmHg 160 mmHg 60 600 Yes vs stable 08/21/24 1045 400 mL/min 800 ml/hr -160 mmHg 160 mmHg 60 600 Yes vs stable 08/21/24 1100 400 mL/min -- -160 mmHg 160 mmHg 60 600 Yes vs stable 08/21/24 1115 400 mL/min -- -160 mmHg 160 mmHg 60 600 Yes vs stable 08/21/24 1130 400 mL/min -- -160 mmHg 160 mmHg 60 600 Yes vs stable 08/21/24 1145 400 mL/min -- -160 mmHg 160 mmHg 60 600 Yes pt sleeping 08/21/24 1200 400 mL/min -- -160 mmHg 160 mmHg 60 600 Yes vs stable 08/21/24 1215 400 mL/min -- -160 mmHg 160 mmHg 60 600 Yes vs stable 08/21/24 1230 400 mL/min -- -160 mmHg 160 mmHg 60 600 Yes vs stable 08/21/24 1245 400 mL/min -- -160 mmHg 160 mmHg 60 600 Yes vs stable 08/21/24 1300 400 mL/min -- -160 mmHg 160 mmHg 60 600 Yes vs stable 08/21/24 1315 400 mL/min -- -160 mmHg 160 mmHg 60 600 Yes vs stable Vital Signs Patient Vitals for the past 24 hrs: BP Temp Temp src Pulse Resp SpO2 Weight 08/21/24 1320 120/68 36.8 C (98.2 F) -- -- -- -- -- 08/21/24 1207 -- -- -- 93 18 100 % -- 08/21/24 1200 104/55 -- -- 72 16 100 % -- 08/21/24 1143 -- 36.8 C (98.2 F) Temporal -- -- -- -- 08/21/24 1100 123/67 -- -- 68 16 100 % -- 08/21/24 1049 -- -- -- 69 -- -- -- 08/21/24 1010 146/62 36.9 C (98.4 F) -- -- -- -- -- 08/21/24 1000 150/55 -- -- 74 14 91 % -- 08/21/24 0900 109/51 -- -- 62 17 97 % -- 08/21/24 0814 -- -- -- 61 16 100 % -- 08/21/24 0812 -- 36.4 C (97.6 F) Temporal -- -- -- -- 08/21/24 0810 -- -- -- 61 16 99 % -- 08/21/24 0800 133/56 -- -- 59 12 99 % -- 08/21/24 0751 -- -- -- 63 19 98 % -- 08/21/24 0700 141/65 -- -- 59 18 100 % -- 08/21/24 0600 133/54 -- -- 58 17 100 % -- 08/21/24 0500 124/52 -- -- 59 14 100 % -- 08/21/24 0400 98/50 36.3 C (97.3 F) Temporal 59 19 100 % 55.2 kg (121 lb 11.1 oz) 08/21/24 0300 122/50 -- -- 58 17 100 % -- 08/21/24 0200 137/51 -- -- 57 13 100 % -- 08/21/24 0100 138/58 -- -- 67 13 100 % -- 08/21/24 0000 123/53 36.4 C (97.5 F) Temporal 61 12 100 % -- 08/20/24 2318 -- -- -- 59 -- 98 % -- 08/20/24 2300 132/57 -- -- 58 17 100 % -- 08/20/24 2200 130/52 -- -- 62 15 100 % -- 08/20/24 2100 132/52 -- -- 63 17 100 % -- 08/20/241999 134/59 36.3 C (97.3 F) Temporal 60 19 100 % -- 08/20/24 194 -- -- -- 61 -- 100 % -- 08/20/24 1941 -- -- -- 55 19 100 % -- 08/20/24 1900 (!) 126/48 -- -- 59 22 100 % -- 08/20/24 1800 120/53 -- -- 61 16 100 % -- 08/20/24 1700 127/55 -- -- 57 16 100 % -- 08/20/24 1600 (!) 121/47 -- -- 58 15 100 % -- 08/20/24 1550 -- -- -- 57 18 100 % -- 08/20/24 1500 123/50 -- -- 63 18 100 % -- 08/20/24 1445 -- -- -- 68 12 99 % -- 08/20/24 1430 -- -- -- 59 12 100 % -- 08/20/24 1415 -- -- -- 59 19 100 % -- 08/20/24 1410 -- -- -- 59 -- 100 % -- Post-Dialysis Arterial Catheter Locking Solution: Heparin (1000units:1ml) Volume (ml): 1.6ml Venous Catheter Locking Solution: Heparin (1000units:1ml) Volume (ml): 1.7ml Post-Treatment Procedures: Blood returned, Catheter capped, clamped and heparinized x 2 ports Machine Disinfection Process: Exterior Machine Disinfection Rinseback Volume (mL): 200 mL Total Liters Processed (L/min): 66.4 L/min Dialyzer Clearance: Lightly streaked Hemodialysis Intake (ml): 500 ml Hemodialysis Output (ml): 2800 ml NET Removed (ml): 2300 ml Tolerated Treatment: Good Interventions Taken: Ultrafiltration goal decreased, Medication Patient Response to Treatment: tolerated well Physician Notified: No Patient Disposition: Remain in ICU/ED Charge: $ IP Hemodialysis Charge: Hemodialysis Provider Notification Provider Notification Reason for Communication: Critical lab value (Serum Conf BG resulted 27) Provider Name: Dr Booker Provider Role: Resident Method of Communication: Face to face Response: At bedside Notification Time: 1049 Reason for Communication: Critical lab value (Serum Conf BG resulted 27) Provider Role: Resident Method of Communication: Face to face Response: At bedside Notification Time: 1049 Handoff complete and report given to Primary RN at 1320 Primary RN (First Initial, Last Name, Title): A. Walpole Rn Education Person Educated: Patient Knowledge Base: Substantial Barriers to Learning?: None Preferred method of Learning: Oral Topic(s): Access Care, Signs and Symptoms of Infection, Fluid Management, Procedural, and Potassium Teaching Tools: Explanation Response to Education: Verbalized Understanding * Claudia Perez RN - 08/19/2024 6:45 PM EDT Pt MBS for dinner was 162 orders for 8 scheduled H. Log and [address] Baires paged. Orders to give SSI and Hold scheduled 8 units if pt does not eat dinner. Pt did not want to eat dinner; 8 units held * Claudia Perez RN - 08/19/2024 11:57 AM EDT Pt seemingly more confused and a little more lethargic than this morning. Med Team paged to make aware * Claudia Perez RN - 08/19/2024 11:49 AM EDT Pt recheck MBS was 527. Dr. Bijan Jarrett paged to make aware * Claudia Perez RN - 08/19/2024 10:45 AM EDT Pt MBS still reading HI. Med Team at bedside. Physician stated no need to draw confirmation, but to give 1 time 15 unit of R and recheck in one hour. * Claudia Perez RN - 08/19/2024 8:[address] Biajn Jarrett paged with repeat glucose of 653 * Claudia Perez RN - 08/19/2024 7:56 AM EDT Critical Care lab called with result of 626. Med Team A paged regarding. 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 (HCC) Myocardial infarction (HCC) Hyperlipidemia Diabetic neuropathy associated with type 1 diabetes mellitus (HCC) Stage 4 chronic kidney disease (HCC) Acute renal failure (HCC) Anemia Anxiety disorder due to medical condition Atherosclerosis of coronary artery Chest pain Chronic constipation Cigarette smoker Adrian's sign present Depressive disorder Diabetic ketoacidosis (CMS/HCC) (HCC) Diabetic polyneuropathy (CMS/HCC) (HCC) Dizziness Gastroparesis History of coronary artery stent placement Hypocalcemia Hypoglycemia Injury of kidney Intermittent palpitations Intractable vomiting with nausea Multiple pulmonary nodules Nicotine dependence Hypertension Respiratory failure with hypoxia (HCC) Skin lesion of foot Solitary pulmonary nodule Underweight Wheezing Hypercapnic respiratory failure (HCC) Treatment: Hemodialysis 1:1 Priority: Routine Location: ICU Diabetic: Yes NPO: No Isolation Precautions: Dialysis Consent for Treatment Verified: Yes Blood Consent Verified: Not Applicable ICEBOAT: Identify, Consent, Equipment, HepB Status, Orders Complete, Access Verified, Timeliness Second Clinician Verifying: Danita SORIANO Time out performed prior to access at 0800. Report Received from Primary RN at 0745. Primary RN (First Initial, Last Name, Title): Janet Ruvalcaba RN Incapacitated Nurse Education Completed: Not Applicable HBsAg ONLY: Date Drawn: August 10, 2024 Results: Negative HBsAb: Date Drawn: August 10, 2024 Results: Susceptible <10 Order Dialyzer: Nipro Na+ Modeling: Not Applicable Dialysate Temperature (C): 36 Blood Flow Rate (BFR): 400 Dialysate Flow Rate (DFR): 600 Access to be Utilized Access: Tunneled Catheter Location: Internal Jugular Side: Right Needle gauge: Not Applicable + Bruit/Thrill: Not Applicable First Use X-ray Verified: Not Applicable OK to use line order: Yes Site Assessment: Signs and Symptoms of Infection/Inflammation: None If yes: Not Applicable Dressing: Dry and Intact Site Prep: Medical Aseptic Technique Dressing Changed this Treatment: Yes If yes, by whom: Jam Shaikh LPN Date of Last Dressing Change: August 18, [address]?: Yes Red Alcohol Caps in place?: Yes Gauze Dressing?: No Non-Dialysis Use?: No Comment: Flows: Good and Patent If access problem, who was notified: Pre and Post-Assessment Patient Vitals for the past 8 hrs: Level of Consciousness 08/18/24 0815 Alert (0) Labs Lab Results Component Value Date/Time WBC 4.5 08/18/2024416 HGB 9.2 (L) 08/18/2024416 HGB 8.3 08/13/2024 0658 HCT 29.1 (L) 08/18/2024416 PLT 111 (L) 08/18/2024416 NA 130 (L) 08/18/2024416 K 3.8 08/18/2024416 CL 99 08/18/2024416 CO2 27 08/18/2024416 BUN 35 (H) 08/18/2024416 CREATININE 3.57 (H) 08/18/2024416 CALCIUM 7.9 (L) 08/18/2024416 PHOS 3.4 08/18/2024416 IV Drips and Rate/Dose Safety - Before each treatment: Dialysis Machine No.: [id number] RO Machine Number: [id number] Dialyzer Lot No.: [id number] Tubing Lot Number: [id number] All Connections Secure: Yes Venous Parameters Set: Yes Arterial Parameters Set: Yes NS Bag: Yes Saline Line Double Clamped: Yes Dialyzer: Nipro Prime Volume (mL): 250 mL RO Machine Number: [id number] RO Machine Log Sheet Completed: Yes Machine Alarm Self Test: Completed, Passed (08/18/24799) Air Foam Detector: Tested, Proper Function, pH Reading Extracorporeal Circuit Tested for Integrity: Yes Machine Conductivity: 13.9 Manual Conductivity: 14 Manual Ph: 7.2 Bleach Test (Neg): Yes Bath Temperature: 36 C (96.8 F) Conductivity Meter Serial #: [id number] Machine Functioning Alarm Free? Yes Dialysis Bath: K+ (Potassium): 3 Ca+ (Calcium): 2.5 Na+ (Sodium): 137 HCO3 (Bicarb): 35 Bicarbonate Concentrate Lot No.: [id number] Acid Concentrate Lot No.: [id number] Chlorine Testing - Before each treatment and every 4 hours: Time On: 0815 Time Off: 1115 Treatment Goal: 3 kg as tolerated Weight Height: 167.6 cm (5' 6) (08/13/24812) Weight: 49.2 kg (108 lb 7.5 oz) (08/18/24420) BMI (Calculated): 17.52 (08/18/24420) 1st check: less than 0.1 ppm at: 0750 2nd check: less than 0.1 ppm at: 1030 3rd check: Not Applicable (if greater than 0.1 ppm, then check every 30 minutes from secondary) Access Flows and Pressures Patient Vitals for the past 8 hrs: Blood Flow Rate (mL/min) Ultrafiltration Rate (ml/hr) Arterial Pressure (mmHg) Venous Pressure (mmHg) TMP DFR Access Visible Intra-Hemodialysis Comments 08/18/2415 400 mL/min 1000 ml/hr -120 mmHg 110 mmHg 90 600 Yes tx initiated 08/18/24 0830 400 mL/min 1170 ml/hr -140 mmHg 120 mmHg 80 600 Yes no HD complications, 260 ml removed 08/18/24 0845 400 mL/min 1170 ml/hr -150 mmHg 120 mmHg 90 600 Yes pt resting with eyes closed, 547 ml removed 08/18/24 0900 400 mL/min 1170 ml/hr -150 mmHg 120 mmHg 80 600 Yes no s/s of discomfort, 848 ml removed 08/18/24 0915 400 mL/min 1170 ml/hr -150 mmHg 120 mmHg 80 600 Yes pt resting with eyes close, 1132 ml removed 08/18/24 0930 400 mL/min 1170 ml/hr -150 mmHg 130 mmHg 90 600 Yes pt spouse at bedside, 142 ml removed 08/18/24 0945 400 mL/min 1170 ml/hr -160 mmHg 120 mmHg 90 600 Yes no voiced concerns, 1725 ml removed 08/18/24 1000 400 mL/min 1170 ml/hr -160 mmHg 130 mmHg 90 600 Yes primary nurse at bedside, 2000 mlremoved 08/18/24 1015 400 mL/min 1170 ml/hr -160 mmHg 130 mmHg 90 600 Yes pt alert, spouse at bedside, 2345ml removed 08/18/24 1030 400 mL/min 1170 ml/hr -160 mmHg 130 mmHg 90 600 Yes pt confused, 2615 ml removed 08/18/24 1045 400 mL/min 1170 ml/hr -150 mmHg 130 mmHg 90 600 Yes pt resting with eyes closed, 2890ml removed 08/18/24 1100 400 mL/min 1170 ml/hr -160 mmHg 130 mmHg 90 600 Yes no HD complications, 3195 ml removed 08/18/24 1115 400 mL/min 1170 ml/hr -160 mmHg 130 mmHg 90 600 Yes tx complete, 3500 ml removed Vital Signs Patient Vitals for the past 24 hrs: BP Temp Temp src Pulse Resp SpO2 Weight 08/18/24 1121 126/57 36.5 C (97.7 F) -- 67 18 -- -- 08/18/24 1115 113/58 -- -- 68 18 -- -- 08/18/24 1100 120/54 -- -- 64 17 -- -- 08/18/24 1045 137/60 -- -- 64 18 -- -- 08/18/24 1030 134/54 -- -- 66 18 99 % -- 08/18/24 1015 141/62 -- -- 65 17 98 % -- 08/18/24 1000 128/64 -- -- 67 17 98 % -- 08/18/24 0945 148/66 -- -- 68 24 98 % -- 08/18/24 0930 130/61 -- -- 72 16 98 % -- 08/18/24 0915 144/62 -- -- 71 19 97 % -- 08/18/24 0900 135/66 -- -- 70 18 97 % -- 08/18/24 0845 137/57 -- -- 73 18 95 % -- 08/18/24 0830 133/70 -- -- 74 18 96 % -- 08/18/24 0815 137/66 -- -- 73 19 100 % -- 08/18/24 0800 134/72 36.3 C (97.3 F) -- 71 20 92 % -- 08/18/24 0421 -- -- -- -- -- -- 49.2 kg (108 lb 7.5 oz) 08/17/242031 144/59 37.4 C (99.3 F) Temporal 77 18 91 % -- 08/17/242029 -- -- -- 77 -- (!) 77 % -- 08/17/24 1943 -- -- -- 69 16 97 % -- 08/17/24 1551 -- -- -- 64 16 -- -- 08/17/24 1400 -- -- -- 64 17 -- -- 08/17/24 1220 -- -- -- -- -- 97 % -- Post-Dialysis Arterial Catheter Locking Solution: 1.6 ml citrate Venous Catheter Locking Solution: 1.7 ml citrate Post-Treatment Procedures: Catheter capped, clamped with Citrate x 2 ports Machine Disinfection Process: Acid/Vinegar Clean, Heat Disinfect, Exterior Machine Disinfection Rinseback Volume (mL): 250 mL Total Liters Processed (L/min): 67.8 L/min Dialyzer Clearance: Lightly streaked Hemodialysis Intake (ml): 500 ml Hemodialysis Output (ml): 3500 ml NET Removed (ml): 3000 ml Tolerated Treatment: Good Interventions Taken: Ultrafiltration goal decreased, Medication Patient Response to Treatment: stable Physician Notified: No Patient Disposition: Remain in ICU/ED Charge: $ IP Hemodialysis Charge: Hemodialysis Provider Notification Provider Notification Reason for Communication: Evaluate (Blood glucose 405) Provider Name: Dr. Adames Provider Role: Attending physician Method of Communication: Face to face Response: See orders Notification Time: 0830 Reason for Communication: Evaluate (Blood glucose 405) Provider Role: Attending physician Method of Communication: Face to face Response: See orders Notification Time: 0830 Handoff complete and report given to Primary RN at 1120. Primary RN (First Initial, Last Name, Title): Janet Ruvalcaba RN Education Person Educated: Patient Knowledge Base: Minimal Barriers to Learning?: Yes, including pt confused Preferred method of Learning: Oral Topic(s): Access Care and Procedural Teaching Tools: Explanation Response to Education: Requires Follow-up * Deborah Singletary RN - 08/16/2024 2:33 PM EDT Patient Name: Sandy Deng Patient : 1960 Acct: [id number] Date of Admission: 08/12/2024 Room/Bed: T3321/T3321 A Code Status: Full Code Allergies: No Known Allergies Diagnosis: Patient Active Problem List Diagnosis SDH (subdural hematoma) (HCC) COPD (chronic obstructive pulmonary disease) (HCC) Type 1 diabetes mellitus with kidney complication (HCC) Myocardial infarction (HCC) Hyperlipidemia Diabetic neuropathy associated with type 1 diabetes mellitus (HCC) Stage 4 chronic kidney disease (HCC) Acute renal failure (HCC) Anemia Anxiety disorder due to medical condition Atherosclerosis of coronary artery Chest pain Chronic constipation Cigarette smoker [place]'s sign present Depressive disorder Diabetic ketoacidosis (CMS/HCC) (HCC) Diabetic polyneuropathy (CMS/HCC) (HCC) Dizziness Gastroparesis History of coronary artery stent placement Hypocalcemia Hypoglycemia Injury of kidney Intermittent palpitations Intractable vomiting with nausea Multiple pulmonary nodules Nicotine dependence Hypertension Respiratory failure with hypoxia (HCC) Skin lesion of foot Solitary pulmonary nodule Underweight Wheezing Hypercapnic respiratory failure (HCC) Treatment: Hemodialysis 1:1 Priority: Routine Location: ICU Diabetic: Yes NPO: No Isolation Precautions: Dialysis Consent for Treatment Verified: Yes Blood Consent Verified: Not Applicable ICEBOAT: Identify, Consent, Equipment, HepB Status, Orders Complete, Access Verified, Timeliness Second Clinician Verifying: Danita SORIANO Time out performed prior to access at 1341. Report Received from Primary RN at 1315 Primary RN (First Initial, Last Name, Title): Bijan Quintero RN Incapacitated Nurse Education Completed: Yes JT HBsAg ONLY: Date Drawn: July 27, 2024 Results: Negative HBsAb: Date Drawn: July 27, 2024 Results: Susceptible <10 Order Dialyzer: Nipro Na+ Modeling: Not Applicable Dialysate Temperature (C): 36 Blood Flow Rate (BFR): 400 Dialysate Flow Rate (DFR): 600 Access to be Utilized Access: Tunneled Catheter Location: Internal Jugular Side: Right Needle gauge: na + Bruit/Thrill: Not Applicable First Use X-ray Verified: Not Applicable OK to use line order: na Site Assessment: Signs and Symptoms of Infection/Inflammation: None If yes: Not Applicable Dressing: Dry and Intact Site Prep: Medical Aseptic Technique Dressing Changed this Treatment: Yes If yes, by whom: Manjeet SORIANO Date of Last Dressing Change: August 16, [address]?: Yes Red Alcohol Caps in place?: Yes Gauze Dressing?: No Non-Dialysis Use?: No Comment: Flows: Good and Patent If access problem, who was notified: Pre and Post-Assessment Patient Vitals for the past 8 hrs: Level of Consciousness Oriented X Heart Rhythm O2 Device Bilateral Breath Sounds Skin Color Skin Condition/Temp Abdomen Inspection Bowel Sounds (All Quadrants) Edema RUE Edema LUE Edema RLE Edema LLEEdema Pre-Hemodialysis Comments 08/16/24 1345 Alert (0) 3 Regular Nasal cannula Diminished Pale Warm;Dry Soft Active Right lower extremity;Left lower extremity None None +1 +1 family at bedside 08/16/24 1700 Alert (0) 3 Regular Nasal cannula Diminished Pale Warm;Dry Soft Active -- -- -- +1 +1-- Labs Lab Results Component Value Date/Time WBC 4.8 08/16/2024338 HGB 9.7 (L) 08/16/2024338 HGB 8.3 08/13/2024 0658 HCT 30.0 (L) 08/16/2024338 PLT 104 (L) 08/16/2024338 NA 131 (L) 08/16/2024338 K 4.1 08/16/2024338 CL 98 08/16/2024338 CO2 27 08/16/2024338 BUN 38 (H) 08/16/2024338 CREATININE 3.90 (H) 08/16/2024338 CALCIUM 7.2 (L) 08/16/2024338 PHOS 4.5 08/16/2024 0339 IV Drips and Rate/Dose Safety - Before each treatment: Dialysis Machine No.: [id number] RO Machine Number: [id number] Dialyzer Lot No.: [id number] Tubing Lot Number: [id number] All Connections Secure: Yes Venous Parameters Set: Yes Arterial Parameters Set: Yes NS Bag: Yes Saline Line Double Clamped: Yes Dialyzer: Nipro Prime Volume (mL): 200 mL RO Machine Number: [id number] RO Machine Log Sheet Completed: Yes Machine Alarm Self Test: Completed, Passed (1341) (08/16/24 134) Air Foam Detector: Tested, Proper Function Extracorporeal Circuit Tested for Integrity: Yes Machine Conductivity: 13.4 Manual Conductivity: 13.8 Manual Ph: 7.4 Bleach Test (Neg): Yes Bath Temperature: 36 C (96.8 F) Conductivity Meter Serial #: [id number] Machine Functioning Alarm Free? Yes Dialysis Bath: K+ (Potassium): 3 Ca+ (Calcium): 2.5 Na+ (Sodium): 137 HCO3 (Bicarb): 35 Bicarbonate Concentrate Lot No.: [id number] Acid Concentrate Lot No.: [id number] Chlorine Testing - Before each treatment and every 4 hours: Time On: 1351 Time Off: 1651 Treatment Goal: 3L as tolerated per Dr. Medrano at bedside Weight Height: 167.6 cm (5' 6) (08/13/24 0813) Weight: 56.5 kg (124 lb 9 oz) (08/16/24 134) BMI (Calculated): 20.11 (08/16/24 1345) 1st check: less than 0.1 ppm at: 1335 2nd check: less than 0.1 ppm at: 1506 3rd check: Not Applicable (if greater than 0.1 ppm, then check every 30 minutes from secondary) Access Flows and Pressures Patient Vitals for the past 8 hrs: Blood Flow Rate (mL/min) Ultrafiltration Rate (ml/hr) Arterial Pressure (mmHg) Venous Pressure (mmHg) TMP DFR Access Visible Intra-Hemodialysis Comments 08/16/24 1351 200 mL/min 1000 ml/hr -40 mmHg 30 mmHg 90 600 Yes treatment started, lines secure, call light within patient's reach 08/16/24 1400 400 mL/min 1000 ml/hr -110 mmHg 100 mmHg 80 600 Yes bfr to 400 08/16/24 1415 400 mL/min 970 ml/hr -130 mmHg 130 mmHg 70 600 Yes uf removal 543 08/16/24 1430 400 mL/min 970 ml/hr -130 mmHg 120 mmHg 70 600 Yes uf removal 710, Dr. Hill ordered Albumin for bp support 08/16/24 1445 400 mL/min 1050 ml/hr -120 mmHg 120 mmHg 80 600 Yes uf removal 977 08/16/24 1500 400 mL/min 1050 ml/hr -120 mmHg 110 mmHg 80 600 Yes uf removal 1243 08/16/24 1515 400 mL/min 1050 ml/hr -120 mmHg 120 mmHg 80 600 Yes uf removal 1495, pt toleratating treatment well at this time 08/16/24 1530 400 mL/min 1050 ml/hr -130 mmHg 120 mmHg 80 600 Yes uf removal 1787, pt resting 08/16/24 1545 400 mL/min 1050 ml/hr -130 mmHg 120 mmHg 60 600 Yes uf removal 2045, pt stable 08/16/24 1600 400 mL/min 1050 ml/hr -140 mmHg 120 mmHg 80 600 Yes uf removal 2266, pt resting 08/16/24 1615 400 mL/min 1050 ml/hr -130 mmHg 120 mmHg 80 600 Yes pt resting 08/16/24 1630 400 mL/min 1050 ml/hr -120 mmHg 110 mmHg 80 600 Yes pt resting 08/16/24 1645 400 mL/min 1050 ml/hr -140 mmHg 120 mmHg 80 600 Yes pt resting 08/16/24 1651 250 mL/min -- -- -- -- 600 -- treatment complete, uf removal 3200 Vital Signs Patient Vitals for the past 24 hrs: BP Temp Temp src Pulse Resp SpO2 Weight 08/16/24 1700 147/59 36.3 C (97.3 F) -- 73 16 100 % -- 08/16/24 1651 143/62 -- -- 67 18 100 % -- 08/16/24 1645 136/61 -- -- 66 16 100 % -- 08/16/24 1630 137/68 -- -- 62 19 100 % -- 08/16/24 1626 -- -- -- 62 17 100 % -- 08/16/24 1615 132/60 -- -- 65 17 100 % -- 08/16/24 1600 134/62 -- -- 65 16 100 % -- 08/16/24 1545 116/59 -- -- 60 13 100 % -- 08/16/24 1530 133/59 -- -- 60 16 100 % -- 08/16/24 1515 119/59 -- -- 62 15 100 % -- 08/16/24 1500 113/56 -- -- 65 16 100 % -- 08/16/24 1445 105/50 -- -- 60 16 100 % -- 08/16/24 1430 96/52 -- -- 63 15 100 % -- 08/16/24 1415 (!) 95/48 -- -- 57 15 100 % -- 08/16/24 1400 107/51 -- -- 55 14 100 % -- 08/16/24 1351 (!) 112/49 -- -- 57 15 100 % -- 08/16/24 1345 (!) 114/48 36.3 C (97.4 F) -- 58 16 95 % 56.5 kg (124 lb 9 oz) 08/16/24 1341 -- -- -- 58 19 100 % -- 08/16/24 1235 -- -- -- 62 16 98 % -- 08/16/24 1221 111/52 36.1 C (97 F) Temporal 61 15 90 % -- 08/16/24 0917 -- -- -- 76 18 98 % -- 08/16/24 0841 146/69 36.5 C (97.7 F) Temporal 72 16 97 % -- 08/16/24 0339 -- -- -- -- -- -- 56.5 kg (124 lb 9 oz) 08/15/242001 -- -- -- 72 19 97 % -- 08/15/241999 135/59 36.6 C (97.9 F) Temporal 73 16 97 % -- 08/15/24 1800 -- -- -- 78 17 100 % -- Post-Dialysis Arterial Catheter Locking Solution: Normal Saline Flush Venous Catheter Locking Solution: Normal Saline Flush Post-Treatment Procedures: Blood returned, Catheter Capped, clamped with Saline x2 ports Machine Disinfection Process: Exterior Machine Disinfection Rinseback Volume (mL): 300 mL Total Liters Processed (L/min): 67.1 L/min Hemodialysis Intake (ml): 500 ml Hemodialysis Output (ml): 3200 ml NET Removed (ml): 2700 ml Tolerated Treatment: Fair Interventions Taken: Ultrafiltration goal decreased, Medication Patient Response to Treatment: stable Physician Notified: Yes Patient Disposition: Remain in ICU/ED Charge: $ IP Hemodialysis Charge: Hemodialysis Provider Notification Provider Notification Reason for Communication: Evaluate (Blood glucose 405) Provider Name: Dr. Adames Provider Role: Attending physician Method of Communication: Face to face Response: See orders Notification Time: 0830 Reason for Communication: Evaluate (Blood glucose 405) Provider Role: Attending physician Method of Communication: Face to face Response: See orders Notification Time: 0830 Handoff complete and report given to Primary RN at 1703. Primary RN (First Initial, Last Name, Title): Danita Education Person Educated: Patient Knowledge Base: Minimal Barriers to Learning?: None Preferred method of Learning: Oral Topic(s): Albumin and Procedural Teaching Tools: Explanation Response to Education: Requires Follow-up * Deborah Cabrajal RN - 08/13/2024 3:53 PM EDT Patient Name: Sandy Deng Patient : 1960 Acct: [id number] Date of Admission: 08/12/2024 [facility] A Code Status: Full Code Allergies: No Known Allergies Diagnosis: Patient Active Problem List Diagnosis SDH (subdural hematoma) (HCC) COPD (chronic obstructive pulmonary disease) (HCC) Type 1 diabetes mellitus with kidney complication (HCC) Myocardial infarction (HCC) Hyperlipidemia Diabetic neuropathy associated with type 1 diabetes mellitus (HCC) Stage 4 chronic kidney disease (HCC) Acute renal failure (HCC) Anemia Anxiety disorder due to medical condition Atherosclerosis of coronary artery Chest pain Chronic constipation Cigarette smoker Adrian's sign present Depressive disorder Diabetic ketoacidosis (CMS/HCC) (HCC) Diabetic polyneuropathy (CMS/HCC) (HCC) Dizziness Gastroparesis History of coronary artery stent placement Hypocalcemia Hypoglycemia Injury of kidney Intermittent palpitations Intractable vomiting with nausea Multiple pulmonary nodules Nicotine dependence Hypertension Respiratory failure with hypoxia (HCC) Skin lesion of foot Solitary pulmonary nodule Underweight Wheezing Hypercapnic respiratory failure (HCC) Treatment: Hemodialysis 1:1 Priority: Routine Location: ICU Diabetic: Yes NPO: No Isolation Precautions: None Consent for Treatment Verified: Yes Blood Consent Verified: Yes ICEBOAT: Identify, Consent, Equipment, Orders Complete, HepB Status, Access Verified, Timeliness Second Clinician Verifying: Frank Lira RN Time out performed prior to access at 1523. Report Received from Primary RN at 1500. Primary RN (First Initial, Last Name, Title): Frank Lira RN Incapacitated Nurse Education Completed: Yes HBsAg ONLY: Date Drawn: July 27, 2024 Results: Negative HBsAb: Date Drawn: July 27, 2024 Results: Susceptible <10 Order Dialyzer: Nipro Na+ Modeling: Not Applicable Dialysate Temperature (C): 36 Blood Flow Rate (BFR): 400 Dialysate Flow Rate (DFR): 600 Access to be Utilized Access: Tunneled Catheter Location: Subclavian Side: Right Needle gauge: Not Applicable + Bruit/Thrill: Not Applicable First Use X-ray Verified: Not Applicable OK to use line order: Not Applicable Site Assessment: Signs and Symptoms of Infection/Inflammation: None If yes: Not Applicable Dressing: Dry and Intact Site Prep: Medical Aseptic Technique Dressing Changed this Treatment: No If yes, by whom: NA - not changed today Date of Last Dressing Change: August 11, [address]?: Yes Red Alcohol Caps in place?: Yes Gauze Dressing?: No Non-Dialysis Use?: No Comment: Flows: Good and Patent If access problem, who was notified: Pre and Post-Assessment Patient Vitals for the past 8 hrs: Level of Consciousness Oriented X Heart Rhythm O2 Device Bilateral Breath Sounds Skin Color Skin Condition/Temp Abdomen Inspection Bowel Sounds (All Quadrants) Edema RUE Edema LUE Edema RLE Edema LLEEdema 08/13/24 1200 -- -- -- -- Diminished Ecchymosis Warm;Dry Soft;Flat Active Right upper extremity;Left upper extremity;Right lower extremity;Left lower extremity Pitting Pitting +2 +2 08/13/24 1600 -- -- -- -- Diminished Ecchymosis Warm;Dry Soft;Flat Active Right upper extremity;Left upper extremity;Right lower extremity;Left lower extremity Pitting Pitting +2 +2 08/13/24 1839 Alert (0) 1 Regular Nasal cannula Diminished -- Warm;Dry Soft Active -- -- -- -- -- Labs Lab Results Component Value Date/Time WBC 3.1 (L) 08/13/2024 1438 HGB 9.2 (L) 08/13/2024 1438 HGB 8.3 08/13/2024 0658 HCT 28.2 (L) 08/13/2024 1438 PLT 78 (L) 08/13/2024 1438 NA 134 (L) 08/13/2024 0507 K 3.7 08/13/2024 050 CL 103 08/13/2024 050 CO2 19 (L) 08/13/2024 050 BUN 18 (H) 08/13/2024506 CREATININE 2.43 (H) 08/13/2024 050 CALCIUM 7.1 (L) 08/13/2024506 PHOS 3.0 08/13/2024 050 IV Drips and Rate/Dose Safety - Before each treatment: Dialysis Machine No.: [id number] Machine Number: [id number] All Connections Secure: Yes Venous Parameters Set: Yes Arterial Parameters Set: Yes NS Bag: Yes Saline Line Double Clamped: Yes Dialyzer: Nipro Prime Volume (mL): 200 mL Machine Number: [id number] RO Machine Log Sheet Completed: Yes Machine Alarm Self Test: Completed, Passed (08/13/24 152) Air Foam Detector: Tested, Proper Function, pH Reading Extracorporeal Circuit Tested for Integrity: Yes Machine Conductivity: 13.8 Manual Conductivity: 13.8 Manual Ph: 7 Bleach Test (Neg): Yes Bath Temperature: 36 C (96.8 F) Conductivity Meter Serial #: [id number] Machine Functioning Alarm Free? Yes Dialysis Bath: K+ (Potassium): 3 Ca+ (Calcium): 2.5 Na+ (Sodium): 137 HCO3 (Bicarb): 35 Chlorine Testing - Before each treatment and every 4 hours: Time On: 1524 Time Off: 1824 Treatment Goal: 2-2.5 Weight Height: 167.6 cm (5' 6) (08/13/24 0813) Weight: 62 kg (136 lb 11 oz) (08/13/24 0549) BMI (Calculated): 22.07 (08/13/24 0549) 1st check: less than 0.1 ppm at: 1515 2nd check: less than 0.1 ppm at: 1800 3rd check: Not Applicable (if greater than 0.1 ppm, then check every 30 minutes from secondary) Access Flows and Pressures Patient Vitals for the past 8 hrs: Blood Flow Rate (mL/min) Ultrafiltration Rate (ml/hr) Arterial Pressure (mmHg) Venous Pressure (mmHg) TMP DFR Access Visible Intra-Hemodialysis Comments 08/13/24 1525 200 mL/min 1000 ml/hr -40 mmHg 60 mmHg 100 600 Yes tx initiated, pt stable, lines secure 08/13/24 1530 400 mL/min 1000 ml/hr -130 mmHg 160 mmHg 100 600 Yes bfr increased, 187 removed 08/13/24 1545 400 mL/min 1000 ml/hr -140 mmHg 150 mmHg 100 600 Yes 377 removed 08/13/24 1600 400 mL/min 1000 ml/hr -140 mmHg 160 mmHg 100 600 Yes at bedside, 562 removed,pt alert and watching tv 08/13/24 1615 400 mL/min 1000 ml/hr -150 mmHg 150 mmHg 100 600 Yes pt chewing restraints off, staffRN notified and at bedside, 850 removed 08/13/24 1630 400 mL/min 1000 ml/hr -150 mmHg 160 mmHg 100 600 Yes 1151 removed 08/13/24 1645 400 mL/min 1000 ml/hr -150 mmHg 160 mmHg 100 600 Yes 1330 removed 08/13/24 1700 400 mL/min 1000 ml/hr -150 mmHg 150 mmHg 100 600 Yes 1558 removed, doctor at bedside speaking with family 08/13/24 1715 400 mL/min 1000 ml/hr -150 mmHg 160 mmHg 100 600 Yes 1827 removed 08/13/24 1730 400 mL/min 1000 ml/hr -160 mmHg 160 mmHg 90 600 Yes 2079 removed 08/13/24 1745 400 mL/min 1000 ml/hr -160 mmHg 160 mmHg 100 600 Yes 2323 removed 08/13/24 1800 400 mL/min 1000 ml/hr -160 mmHg 160 mmHg 100 600 Yes 2559 removed 08/13/24 1815 400 mL/min 1000 ml/hr -150 mmHg 170 mmHg 90 600 Yes 2818 removed 08/13/24 1825 400 mL/min 1000 ml/hr -150 mmHg 170 mmHg 90 600 Yes 3000 removed, tx complete, blood returned Vital Signs Patient Vitals for the past 24 hrs: BP Temp Temp src Pulse Resp SpO2 Height Weight 08/13/24 1839 147/75 -- -- 91 21 99 % -- -- 08/13/24 1825 -- -- -- 87 20 100 % -- -- 08/13/24 1815 140/62 -- -- 87 -- -- -- -- 08/13/24 1800 137/65 -- -- 85 18 100 % -- -- 08/13/24 1745 128/54 -- -- 84 -- -- -- -- 08/13/24 1730 131/58 -- -- 84 -- -- -- -- 08/13/24 1715 132/63 -- -- 80 -- -- -- -- 08/13/24 1700 144/66 -- -- 80 20 100 % -- -- 08/13/24 1657 -- -- -- 80 16 100 % -- -- 08/13/24 1645 141/68 -- -- 81 -- -- -- -- 08/13/24 1630 147/64 -- -- 82 -- -- -- -- 08/13/24 1615 143/73 -- -- 78 -- -- -- -- 08/13/24 1600 138/76 37.2 C (99 F) Axillary 80 21 99 % -- -- 08/13/24 1545 137/66 -- -- 81 -- -- -- -- 08/13/24 1530 136/63 -- -- 82 -- -- -- -- 08/13/24 1525 138/66 -- -- 79 -- -- -- -- 08/13/24 1511 138/58 -- -- 84 15 100 % -- -- 08/13/24 1400 143/68 -- -- 83 25 98 % -- -- 08/13/24 1300 157/70 -- -- 83 22 99 % -- -- 08/13/24 1239 -- -- -- 86 13 99 % -- -- 08/13/24 1200 (!) 166/71 37.3 C (99.2 F) Axillary 79 16 97 % -- -- 08/13/24 1100 156/66 -- -- 81 19 97 % -- -- 08/13/24 0904 150/88 36.7 C (98.1 F) -- 78 17 99 % -- -- 08/13/24 0902 -- -- -- 77 18 98 % -- -- 08/13/24 0900 158/88 -- -- 77 18 98 % -- -- 08/13/24 0813 -- -- -- -- -- -- 1.676 m (5' 6) -- 08/13/24 0800 (!) 173/78 36.7 C (98.1 F) -- 79 18 98 % -- -- 08/13/24 0651 147/60 37.1 C (98.7 F) -- 78 15 -- -- -- 08/13/24 0632 142/62 36.6 C (97.8 F) -- 79 16 -- -- -- 08/13/24 0600 126/51 -- -- 79 17 95 % -- -- 08/13/24 0549 -- -- -- -- -- -- -- 62 kg (136 lb 11 oz) 08/13/24 0500 (!) 133/48 -- -- 81 17 97 % -- -- 08/13/24 0426 -- -- -- 81 -- 100 % -- -- 08/13/24 0400 (!) 115/40 36.8 C (98.3 F) Temporal 78 16 100 % -- -- 08/13/24 0300 (!) 99/45 -- -- 74 22 95 % -- -- 08/13/24 0200 (!) 87/42 -- -- 79 21 96 % -- -- 08/13/24 0100 141/58 -- -- 79 18 98 % -- -- 08/13/24 0000 146/76 37.1 C (98.8 F) Temporal 83 18 98 % -- -- 08/12/24 2330 140/60 37.2 C (98.9 F) -- 79 21 99 % -- -- 08/12/242305 -- -- -- 77 -- 100 % -- -- 08/12/242299 140/60 -- -- -- -- -- -- -- 08/12/24 2200 (!) 93/36 -- -- 70 22 97 % -- -- 08/12/242100 131/50 36.7 C (98 F) Axillary 76 16 100 % -- -- 08/12/242099 131/50 -- -- 78 20 100 % -- -- 08/12/242044 143/59 37.1 C (98.7 F) Temporal 76 17 100 % -- -- 08/12/242020 -- -- -- 75 23 98 % -- -- 08/12/241999 143/59 -- -- 73 20 100 % -- -- 08/12/241899 137/55 36.7 C (98 F) Temporal 71 22 100 % -- -- Post-Dialysis Arterial Catheter Locking Solution: NS lock Venous Catheter Locking Solution: NS lock Post-Treatment Procedures: Blood returned, Catheter Capped, clamped with Saline x2 ports Machine Disinfection Process: Acid/Vinegar Clean, Heat Disinfect, Exterior Machine Disinfection Rinseback Volume (mL): 300 mL Total Liters Processed (L/min): 67.7 L/min Hemodialysis Intake (ml): 500 ml Hemodialysis Output (ml): 3000 ml NET Removed (ml): 2500 ml Tolerated Treatment: Good Patient Response to Treatment: stable Patient Disposition: Remain in ICU/ED Charge: $ IP Hemodialysis Charge: Hemodialysis Provider Notification Provider Notification Reason for Communication: Critical lab value (1/2 BC + presumptive staph epi) Provider Name: Carlin Provider Role: Resident Method of Communication: Secure chat Response: No new orders Notification Time: 1746 Reason for Communication: Critical lab value (1/2 BC + presumptive staph epi) Provider Role: Resident Method of Communication: Secure chat Response: No new orders Notification Time: 1746 Handoff complete and report given to Primary RN at 1849. Primary RN (First Initial, Last Name, Title): Frank Bhakta RN Education Person Educated: Patient Knowledge Base: dolores Barriers to Learning?: Yes, including slight confusion Preferred method of Learning: Oral Topic(s): Procedural Teaching Tools: Explanation Response to Education: Requires Follow-up * Kassie Catalan RN - 08/12/2024 11:09 PM EDT At 2200 this RN went in to assess patient and found new AMS. Pt was previously A&Ox4, followingcommands, with PERRLA and now had pupillary discrepancies and deviation and was not following commands or withdrawing to pain. Pt taken down for a stat CT, while in CT per the attending a stroke teamwas called. Stroke team narrator completed. documented in this [facility]10-21-2024 Consult note* Eladio Lebron MD - 08/23/2024 2:48 PM EDTAssociated Order(s): IP CONSULT TO UROLOGY Urology Consult 08/12/2024 HISTORY OF PRESENT ILLNESS: The patient is a 63 y.o. female with past medical history as listed below and significant for CKD, T1DM, CAD who is here for resp distress and delirium, COVID positive. Pt was intubated prior in thisadmission and now extubated. According to the patient, she has been cathetered on prior admissions but never had a chronic indwelling johnson at home. The patient denies any urinary sx and appreciates the johnson so she doesn't get pain and discomfort from retention. On evaluation, they are AF and HDS.Labs and imaging are outlined below. Urology consulted for evaluation and management of multiple failed VT --> johnson. Was last found to be retaining 950mL. ED/Hospital workup Cr 3.39 (last known normal was 0.81 in 07/31/24) WBC 4.4 HGB 8.2 UA (08/21) many indigo, RBC, WBC leuks Ucx 08/21 Abbi [address] - none recent 16Fr johnson draining clear yellow urine VTpDC but likely [facility] PAST MEDICAL HISTORY: Past Medical History: Diagnosis Date COPD (chronic obstructive pulmonary disease) (HCC) Diabetic neuropathy (HCC) Hyperlipidemia Myocardial infarct (HCC) Stage 4 chronic kidney disease (HCC) Type 1 diabetes (HCC) PAST SURGICAL HISTORY: Past Surgical History: Procedure Laterality Date CORONARY ANGIOPLASTY WITH STENT PLACEMENT CORONARY ANGIOPLASTY WITH STENT PLACEMENT ALLERGIES: No Known Allergies HOME MEDICATIONS: Medications Prior to Admission Medication Sig Dispense Refill Last Dose albuterol 108 (90 Base) MCG/ACT inhaler inhale 2 puffs by mouth and INTO THE LUNGS every 6 hours ifneeded for cough aspirin 81 MG EC tablet Take 1 tablet by mouth daily. Breztri Aerosphere 160-9-4.8 MCG/ACT aerosol busPIRone (Buspar) 7.5 MG tablet Take 1 tablet by mouth 2 times daily. Cholecalciferol ([facility] Vitamin D3) 25 MCG (1000 UT) chewable tablet Chew. clopidogrel (Plavix) 75 MG tablet Take 1 tablet by mouth daily. Continuous Glucose Sensor (Dexcom G6 Sensor) misc Continuous Glucose Transmitter (Dexcom G6 transmitter) misc estradiol (Estrace) 1 MG tablet Take 1 mg by mouth in the morning. fluticasone (Flonase) 50 MCG/ACT nasal spray Administer 2 sprays into each nostril daily. Shake gently. Before first use, prime pump. After use, clean tip and replace cap. gabapentin (Neurontin) 100 MG capsule Take 2 capsules (200 mg) by mouth 2 times daily. [] guaiFENesin (Robitussin) 100 MG/5ML liquid Take 10 mL (200 mg) by mouth every 4 hours as needed for cough or congestion for up to 10 days. Insulin Disposable Pump (Omnipod 5 [id number] Intro Gen 5) kit Insulin Disposable Pump (Omnipod 5 [id number] Pods Gen 5) misc insulin glargine (Lantus) 100 UNIT/ML injection Inject 3 Units under the skin Nightly. ipratropium-albuterol (Duo-Neb) 0.5-2.5 mg/3 mL nebulizer solution inhale contents of 1 vial ( 3 MLS ) in nebulizer by mouth and INTO THE LUNGS every 4 hours Kerendia 10 MG tablet Take 1 tablet by mouth daily. levoFLOXacin (Levaquin) 750 MG tablet take 1 tablet by mouth every 24 hours for 7 days lisinopril 2.5 MG tablet Take 2.5 mg by mouth in the morning. metoprolol tartrate (Lopressor) 50 MG tablet Take 1 tablet (50 mg) by mouth 2 times daily. mirtazapine (Remeron) 7.5 MG tablet Take 1 tablet by mouth Nightly. [] nitrofurantoin, macrocrystal-monohydrate, (Macrobid) 100 MG capsule Take 1 capsule (100 mg) by mouth 2 times daily for 3 doses. nitroglycerin (Nitrostat) 0.4 MG SL tablet Prolia 60 MG/ML solution prefilled syringe simvastatin (Zocor) 40 MG tablet Take 40 mg by mouth daily. SPS 15 GM/60ML suspension TAKE 30 GRAMS BY MOUTH EVERYDAY FOR ONE DAY Trelegy Ellipta 200-62.5-25 MCG/ACT aerosol powder FAMILY HISTORY: No family history on file. Social History: Social History Tobacco Use Smoking Status Never Smokeless Tobacco Never Social History Substance and Sexual Activity Alcohol Use None PHYSICAL EXAM: VITALS: Vitals: 08/23/24 1133 08/23/24 1420 08/23/24 1426 08/23/24 1428 BP: (!) 124/48 128/58 143/59 BP Location: Patient Position: Pulse: 78 85 83 83 Resp: 16 16 Temp: 36.7 C (98.1 F) TempSrc: SpO2: 100% Weight: Height: General: Alert, in no acute distress : 16Fr johnson draining clear yellow DATA: LABS: BMP: Lab Results Component Value Date NA 130 (L) 08/23/2024 K 4.0 08/23/2024 CL 99 08/23/2024 CO2 27 08/23/2024 BUN 37 (H) 08/23/2024 CREATININE 3.39 (H) 08/23/2024 CALCIUM 7.3 (L) 08/23/2024 GLUCOSE 299 (H) 08/23/2024 CBC: Lab Results Component Value Date WBC 4.4 08/23/2024 HGB 8.2 (L) 08/23/2024 HCT 25.5 (L) 08/23/2024 MCV 89.8 08/23/2024 PLT 167 08/23/2024 RADIOLOGY: CT head wo IV contrast Final Result 1. Interval resolution of tiny right subdural hematoma. 2. Bilateral mastoiditis and left otitis media, new compared to 07/26/2024. 3. ASPECTS: [address] ANGIOGRAPHY HEAD AND NECK: Clinical Indication: Inpatient; 63-year-old female; new gaze deviation with pupil asymmetry; patient receiving dialysis tomorrow; stroke team called Scan Parameters: CT perfusion: Following non-contrast CT through the head, dynamic 4D CT angiograms of the intracranial vessels and CT Perfusion study of the whole brain were performed after IV contrast. The data setwas post processed 4D CT angiograms, 3-D shaded surface display CT angiograms, and color coded CT pe rfusion maps of cerebral blood volume, mean transit time, and cerebral blood flow. CTA head and neck: Multiple axial CT images were obtained of the head and neck after administrationof IV contrast with coronal and sagittal reconstructs. The CT angiographic studies of the extracranial vessels were post processed with MIP imaging. Measurement of carotid stenosis is a ratio based on conventional angiographic data from the NASCET trials with the smallest caliber of the internal carotid as the numerator and normal post-stenotic internal carotid caliber as denominator. Dose reduction was employed with automated exposure control. Contrast: 100 mL of Isovue-370 IV contrast Comparison: CT head 07/26/2024 Findings: CT perfusion studies: No global or regional perfusion abnormalities are noted on the TTP, MTT, CBV,or CBF maps. There is no core infarct, there is no atrophy risk territory, and there is no mismatchpenumbra. Aortic arch: The aortic arch demonstrates normal caliber. There are no significant atherosclerotic calcifications at the aortic arch. There is no stenosis at the origin of the three-vessel takeoff. Right carotid: Mild atherosclerotic calcifications are present along the common carotid artery and internal. The right internal carotid artery demonstrates minimal stenosis near the origin in the range of less than 30 percent. Patent flow extends into the intracranial circulation. Left carotid: Mild atherosclerotic calcifications are present along the common carotid artery and internal. The left internal carotid artery demonstrates minimal stenosis near the origin in the rangeof less than 30 percent. Patent flow extends into the intracranial circulation. Vertebral arteries: There is patent antegrade flow noted within the vertebral arteries. Intracranial arteries: Patent flow is identified throughout the anterior, middle and posterior cerebral arteries. No vascular malformation or aneurysm above 3 mm in caliber is identified. The regionsof the anterior and posterior communicating arteries are unremarkable. Atherosclerotic calcifications are present along the supraclinoid portion of bilateral internal carotid arteries. Neck: There is no adenopathy. The salivary glands are within normal limits. The airway is patent. The thyroid gland contour is normal. Esophagus is decompressed. The epiglottis is normal. Lung apices: There is a large right pleural effusion and a small left pleural effusion with compressive atelectasis. Severe centrilobular emphysema is present within the lung apices. Osseous structures: The osseous structures are intact. Mild endplate spurring is present along the cervical spine.. IMPRESSION: 1. Interval resolution of tiny RIGHT subdural hematoma. 2. BILATERAL mastoiditis and LEFT otitis media, new compared to 07/26/2024. 3. Perfusion exam demonstrates no acute infarct or at risk territory. 4. CTA demonstrates no large vessel occlusion. 5. Large right and small left pleural effusion with compressive atelectasis and/or infiltrate. Severe centrilobular emphysema. CRITICAL TEST COMMUNICATION: Dr. Nuñez was notified by telephone today at 11:01pm. Report Dictated on Electronically Signed By: Otilia Wiley MD Electronically Signed Date/Time: 08/12/2024 11:12 PM EDT CTA head neck angio w and wo IV contrast Final Result 1. Interval resolution of tiny right subdural hematoma. 2. Bilateral mastoiditis and left otitis media, new compared to 07/26/2024. 3. ASPECTS: [address] ANGIOGRAPHY HEAD AND NECK: Clinical Indication: Inpatient; 63-year-old female; new gaze deviation with pupil asymmetry; patient receiving dialysis tomorrow; stroke team called Scan Parameters: CT perfusion: Following non-contrast CT through the head, dynamic 4D CT angiograms of the intracranial vessels and CT Perfusion study of the whole brain were performed after IV contrast. The data setwas post processed 4D CT angiograms, 3-D shaded surface display CT angiograms, and color coded CT pe rfusion maps of cerebral blood volume, mean transit time, and cerebral blood flow. CTA head and neck: Multiple axial CT images were obtained of the head and neck after administrationof IV contrast with coronal and sagittal reconstructs. The CT angiographic studies of the extracranial vessels were post processed with MIP imaging. Measurement of carotid stenosis is a ratio based on conventional angiographic data from the NASCET trials with the smallest caliber of the internal carotid as the numerator and normal post-stenotic internal carotid caliber as denominator. Dose reduction was employed with automated exposure control. Contrast: 100 mL of Isovue-370 IV contrast Comparison: CT head 07/26/2024 Findings: CT perfusion studies: No global or regional perfusion abnormalities are noted on the TTP, MTT, CBV,or CBF maps. There is no core infarct, there is no atrophy risk territory, and there is no mismatchpenumbra. Aortic arch: The aortic arch demonstrates normal caliber. There are no significant atherosclerotic calcifications at the aortic arch. There is no stenosis at the origin of the three-vessel takeoff. Right carotid: Mild atherosclerotic calcifications are present along the common carotid artery and internal. The right internal carotid artery demonstrates minimal stenosis near the origin in the range of less than 30 percent. Patent flow extends into the intracranial circulation. Left carotid: Mild atherosclerotic calcifications are present along the common carotid artery and internal. The left internal carotid artery demonstrates minimal stenosis near the origin in the rangeof less than 30 percent. Patent flow extends into the intracranial circulation. Vertebral arteries: There is patent antegrade flow noted within the vertebral arteries. Intracranial arteries: Patent flow is identified throughout the anterior, middle and posterior cerebral arteries. No vascular malformation or aneurysm above 3 mm in caliber is identified. The regionsof the anterior and posterior communicating arteries are unremarkable. Atherosclerotic calcifications are present along the supraclinoid portion of bilateral internal carotid arteries. Neck: There is no adenopathy. The salivary glands are within normal limits. The airway is patent. The thyroid gland contour is normal. Esophagus is decompressed. The epiglottis is normal. Lung apices: There is a large right pleural effusion and a small left pleural effusion with compressive atelectasis. Severe centrilobular emphysema is present within the lung apices. Osseous structures: The osseous structures are intact. Mild endplate spurring is present along the cervical spine.. IMPRESSION: 1. Interval resolution of tiny RIGHT subdural hematoma. 2. BILATERAL mastoiditis and LEFT otitis media, new compared to 07/26/2024. 3. Perfusion exam demonstrates no acute infarct or at risk territory. 4. CTA demonstrates no large vessel occlusion. 5. Large right and small left pleural effusion with compressive atelectasis and/or infiltrate. Severe centrilobular emphysema. CRITICAL TEST COMMUNICATION: Dr. Nuñez was notified by telephone today at 11:01pm. Report Dictated on Electronically Signed By: Otilia Wiley MD Electronically Signed Date/Time: 08/12/2024 11:[address] PERFUSION Final Result 1. Interval resolution of tiny right subdural hematoma. 2. Bilateral mastoiditis and left otitis media, new compared to 07/26/2024. 3. ASPECTS: [address] ANGIOGRAPHY HEAD AND NECK: Clinical Indication: Inpatient; 63-year-old female; new gaze deviation with pupil asymmetry; patient receiving dialysis tomorrow; stroke team called Scan Parameters: CT perfusion: Following non-contrast CT through the head, dynamic 4D CT angiograms of the intracranial vessels and CT Perfusion study of the whole brain were performed after IV contrast. The data setwas post processed 4D CT angiograms, 3-D shaded surface display CT angiograms, and color coded CT pe rfusion maps of cerebral blood volume, mean transit time, and cerebral blood flow. CTA head and neck: Multiple axial CT images were obtained of the head and neck after administrationof IV contrast with coronal and sagittal reconstructs. The CT angiographic studies of the extracranial vessels were post processed with MIP imaging. Measurement of carotid stenosis is a ratio based on conventional angiographic data from the NASCET trials with the smallest caliber of the internal carotid as the numerator and normal post-stenotic internal carotid caliber as denominator. Dose reduction was employed with automated exposure control. Contrast: 100 mL of Isovue-370 IV contrast Comparison: CT head 07/26/2024 Findings: CT perfusion studies: No global or regional perfusion abnormalities are noted on the TTP, MTT, CBV,or CBF maps. There is no core infarct, there is no atrophy risk territory, and there is no mismatchpenumbra. Aortic arch: The aortic arch demonstrates normal caliber. There are no significant atherosclerotic calcifications at the aortic arch. There is no stenosis at the origin of the three-vessel takeoff. Right carotid: Mild atherosclerotic calcifications are present along the common carotid artery and internal. The right internal carotid artery demonstrates minimal stenosis near the origin in the range of less than 30 percent. Patent flow extends into the intracranial circulation. Left carotid: Mild atherosclerotic calcifications are present along the common carotid artery and internal. The left internal carotid artery demonstrates minimal stenosis near the origin in the rangeof less than 30 percent. Patent flow extends into the intracranial circulation. Vertebral arteries: There is patent antegrade flow noted within the vertebral arteries. Intracranial arteries: Patent flow is identified throughout the anterior, middle and posterior cerebral arteries. No vascular malformation or aneurysm above 3 mm in caliber is identified. The regionsof the anterior and posterior communicating arteries are unremarkable. Atherosclerotic calcifications are present along the supraclinoid portion of bilateral internal carotid arteries. Neck: There is no adenopathy. The salivary glands are within normal limits. The airway is patent. The thyroid gland contour is normal. Esophagus is decompressed. The epiglottis is normal. Lung apices: There is a large right pleural effusion and a small left pleural effusion with compressive atelectasis. Severe centrilobular emphysema is present within the lung apices. Osseous structures: The osseous structures are intact. Mild endplate spurring is present along the cervical spine.. IMPRESSION: 1. Interval resolution of tiny RIGHT subdural hematoma. 2. BILATERAL mastoiditis and LEFT otitis media, new compared to 07/26/2024. 3. Perfusion exam demonstrates no acute infarct or at risk territory. 4. CTA demonstrates no large vessel occlusion. 5. Large right and small left pleural effusion with compressive atelectasis and/or infiltrate. Severe centrilobular emphysema. CRITICAL TEST COMMUNICATION: Dr. Nuñez was notified by telephone today at 11:01pm. Report Dictated on Electronically Signed By: Otilia Wiley MD Electronically Signed Date/Time: 08/12/2024 11:12 PM EDT XR chest 1 view Final Result Suspect mild pulmonary edema with small pleural effusions. Report Dictated on Electronically Signed By: Kami Brown MD Electronically Signed Date/Time: 08/12/2024 1:13 PM EDT IMPRESSION: 63 y.o. female with Stage 4 CKD (on HD) who presents for PNA and AMS, COVID positive. Urology consulted for retention after many failed VTs PLAN: No acute urologic surgical intervention indicated at this time GIAN - ordered Pt can attempt void trial prior to discharge again but based on multiple failed attempts, it's likely patient will go home with johnson and follow up with urology outpatient Goal of daily, soft bowel movements prior to removal of johnson catheter. Bowel regimen per primary service. UA + Abbi Creatinine 3.39 but now on HD. Patient's baseline 0.8 prior to this admission. Imaging reviewed. Void trial after johnson in place and on scheduled Flomax for 72 hours, having regular bowel movements, and ambulating at patient's baseline. Once these milestones are all met, contact the on-call urology resident in the powder coat painter for void trial instructions. Would recommend doing void trial prior to the day of anticipated discharge if able. Follow up with urology for continued outpatient management Please page the electronic instrument trades worker urology resident with any questions or concerns Thank you for allowing me to participate in the care of your patient Will discuss plan with Dr. Steen. Attestation to follow. Please do not hesitate to reach out to the urology team with additional questions or concerns On-Call Finder --> [facility] Page on-call resident(s) first Eladio Lebron MD Urology PGY-1 08/23/2024 4:35 PM Cosigned by William Steen MD at 08/24/2024 3:22 PM EDT Associated attestation - William Steen MD - 08/24/2024 3:22 PM EDT I saw and evaluated the patient, participating in the cantrell portions of the service. I reviewed the resident s note. I agree with the resident s findings and plan. William Steen MD * Glenda Ma MD - 08/20/2024 1:26 PM EDTAssociated Order(s): INPATIENT CONSULT TO CRITICAL CARE - MEDICAL TEAM Images from the original note were not included. Internal Medicine: MICU Initial Consult Name: Sandy Deng : 1960(63 y.o.) Date: 08/20/24 Attending: Dr. Adames Subjective: Chief Complaint: Acute hypercapnic respiratory failure HPI: 63-year-old female with past medical history of significant COPD, baseline on 4 L nasal cannula, type 1 diabetes mellitus, ESRD on hemodialysis, was recently discharged from the ICU after being treated for septic shock and COPD exacerbation. Patient was on the floor, remained hemodynamically stable, and was on baseline 4 L oxygen. Since patient got transferred out from the ICU, denied to wear BiPAP. This morning, during evaluation patient was somnolent and lethargic but arousable with painful sternal rub. ABG showed respiratory acidosis with a CO2 of 72. Patient was started on BiPAP, repeat ABG after 1 hour of BiPAP showed hypercapnia along with pCO2 of 38 and O2 sats of 64%. Patient was hemodynamically stable. Lab work was negative for any leukocytosis, CBC was unremarkable. Chest x-ray from yesterday showed deviation of the trachea to the right side but no acute infiltrative process. Considering patient's altered mental status from hypercapnia and hypoxia, patient will be transferred to the ICU for further management. Past Medical History: Diagnosis Date COPD (chronic obstructive pulmonary disease) (HCC) Diabetic neuropathy (HCC) Hyperlipidemia Myocardial infarct (HCC) Stage 4 chronic kidney disease (HCC) Type 1 diabetes (HCC) Past Surgical History: Procedure Laterality Date CORONARY ANGIOPLASTY WITH STENT PLACEMENT CORONARY ANGIOPLASTY WITH STENT PLACEMENT No family history on file. Social History Socioeconomic History Marital status: Spouse name: Not on file Number of children: Not on file Years of education: Not on file Highest education level: Not on file Occupational History Not on file Tobacco Use Smoking status: Never Smokeless tobacco: Never Substance and Sexual Activity Alcohol use: Not on file Drug use: Not on file Sexual activity: Not on file Other Topics Concern Not on file Social History Narrative Not on file Social Determinants of Health Financial Resource Strain: Not on file Food Insecurity: Patient Unable To Answer (08/12/2024) Hunger Vital Sign Worried About Running Out of Food in the Last Year: Patient unable to answer Ran Out of Food in the Last Year: Patient unable to answer Transportation Needs: Patient Unable To Answer (08/12/2024) PRAPARE - Transportation Lack of Transportation (Medical): Patient unable to answer Lack of Transportation (Non-Medical): Patient unable to answer Physical Activity: Not on file Stress: Not on file Social Connections: Not on file Intimate Partner Violence: Patient Unable To Answer (08/12/2024) Humiliation, Afraid, Rape, and Kick questionnaire Fear of Current or Ex-Partner: Patient unable to answer Emotionally Abused: Patient unable to answer Physically Abused: Patient unable to answer Sexually Abused: Patient unable to answer Housing Stability: Patient Unable To Answer (08/12/2024) Housing Stability Vital Sign Unable to Pay for Housing in the Last Year: Patient unable to answer Number of Times Moved in the Last Year: Not on file Homeless in the Last Year: Patient unable to answer No Known Allergies Prior to Admission medications Medication Sig Start Date End Date Taking? Authorizing Provider albuterol 108 (90 Base) MCG/ACT inhaler inhale 2 puffs by mouth and INTO THE LUNGS every 6 hours ifneeded for cough Historical Provider, aspirin 81 MG EC tablet Take 1 tablet by mouth daily. Historical Provider, MD Mccullough Aerosphere 160-9-4.8 MCG/ACT aerosol 07/20/24 Historical Provider, busPIRone (Buspar) 7.5 MG tablet Take 1 tablet by mouth 2 times daily. Historical Provider, Cholecalciferol ([employer] Vitamin D3) 25 MCG (1000 UT) chewable tablet Chew. Historical Provider, clopidogrel (Plavix) 75 MG tablet Take 1 tablet by mouth daily. Historical Provider, Continuous Glucose Sensor (Dexcom G6 Sensor) [facility] 07/22/24 Historical Provider, Continuous Glucose Transmitter (Dexcom G6 transmitter) [facility] [place] 07/25/24 Historical Provider, estradiol (Estrace) 1 MG tablet Take 1 mg by mouth in the morning. Historical Provider, fluticasone (Flonase) 50 MCG/ACT nasal spray Administer 2 sprays into each nostril daily. Shake gently. Before first use, prime pump. After use, clean tip and replace cap. 08/10/24 08/10/25 Khai Espana DO gabapentin (Neurontin) 100 MG capsule Take 2 capsules (200 mg) by mouth 2 times daily. 08/10/24 08/10/25 Khai Espana DO guaiFENesin (Robitussin) 100 MG/5ML liquid Take 10 mL (200 mg) by mouth every 4 hours as needed forcough or congestion for up to 10 days. 08/10/24 08/20/24 Khai Espana DO Insulin Disposable Pump (Omnipod 5 [id number] Intro Gen 5) kit 12/03/23 Historical ProviderMD Insulin Disposable Pump (Omnipod 5 [id number] Pods Gen 5) misc 07/15/24 Historical Provider, insulin glargine (Lantus) 100 UNIT/ML injection Inject 3 Units under the skin Nightly. 08/10/24 Jenae Espana DO ipratropium-albuterol (Duo-Neb) 0.5-2.5 mg/3 mL nebulizer solution inhale contents of 1 vial ( 3 MLS ) in nebulizer by mouth and INTO THE LUNGS every 4 hours 10/29/23 Historical Provider, Kerendjoselyn 10 MG tablet Take 1 tablet by mouth daily. 10/22/23 Historical Provider, levoFLOXacin (Levaquin) 750 MG tablet take 1 tablet by mouth every 24 hours for 7 days 11/04/23 Historical Provider, lisinopril 2.5 MG tablet Take 2.5 mg by mouth in the morning. Historical Provider, metoprolol tartrate (Lopressor) 50 MG tablet Take 1 tablet (50 mg) by mouth 2 times daily. 08/10/24 Khai Espana DO mirtazapine (Remeron) 7.5 MG tablet Take 1 tablet by mouth Nightly. Historical Provider, nitroglycerin (Nitrostat) 0.4 MG SL tablet 07/15/24 Historical Provider, Prolia 60 MG/ML solution prefilled syringe Historical Provider, simvastatin (Zocor) 40 MG tablet Take 40 mg by mouth daily. 07/14/24 Historical Provider, SPS 15 GM/60ML suspension TAKE 30 GRAMS BY MOUTH EVERYDAY FOR ONE DAY Historical Provider, MD Zuluaga Ellipta 200-62.5-25 MCG/ACT aerosol powder 05/12/24 Historical Provider, Objective: Oxygen Delivery: O2 Flow Rate (L/min): 3 L/min VITALS: BP 135/58 (BP Location: Right arm, Patient Position: Lying) Pulse 60 Temp 36.5 C (97.7 F) (Temporal) Resp 18 Ht 1.676 m (5' 6) Wt 49.2 kg (108 lb 7.5 oz) SpO2 91% BMI 17.51 kg/m CURRENT PULSE OXIMETRY: SpO2: 91 % Review of Systems Reason unable to perform ROS: Not performed appropriately due to patient is somnolent and lethargic. Constitutional: General Appearance []WDWN []Obese [x]Cachectic [x]Thin []Ill Eyes: Inspection of Pupils/Irises Pupils round and react: [x]Yes []No Sclera: []Icteric []Non-Icteric Inspection of Conjunctiva/Lids Conjunctiva: []Injected [x]Non-Injected Lids: [x]Intact []Lesion Present ENT/Mouth: External Inspection of ears/nose [x] Normal [] Scar/Lesion/Mass Inspection of teeth/lips/gums Dentition: [x][place] Teeth []Dentures Lips/Gums: [x]Intact []Lesion Present Mucosa: []Pinson []Moist [x]Dry Neck: External Appearance Overall Appearance: [x]Normal []Lesion/Mass/Crepitus Present Trachea midline: []Yes [x]No Respiratory: Respiratory effort []Labored [x]Non-Labored [] Mechanically-Ventilated Auscultation [x]Clear []Crackles []Wheezes []Rhonchi Cardiovascular: Auscultation Rate: [x]Regular []Irregular []Tachycardia []Bradycardia Rhythm: [x]Regular []Irregular Murmur: []Present []Absent Extremities Peripheral Edema: []Present []Absent Varicosities: []Present []Absent Gastrointestinal: Abdomen Palpation: [x]Soft []Firm []Tender []Non-Tender []Distended []Non-distended Mass: []Present []Absent Bowel Sounds: []Present []Absent Hernia: []Present []Absent Liver/Spleen: []Hepatosplenomegaly []Organomegaly Absent Musculoskeletal: Inspection of Digits and Nails Cyanosis: []Present [x]Absent Clubbing: []Present [x]Absent Ischemia: []Present [x]Absent Infection: []Present [x]Absent Extremities ROCHE Equally: Except ([]RUE []RLE []LUE []LLE) Strength/Tone: Intact and Normal ([x]RUE [x]RLE [x]LUE [x]LLE) Skin: Inspection [x]Normal []Rash []Lesion []Ulcer Palpation []Warm []Cool []Dry []Clammy []Nodules []Induration []Skin-tightening Cap-Refill: [] <3 sec [] >3 seconds (delayed) Neurologic: GCS EYE: 2 - Opens to pain GCS MOTOR: 5 - Localizes to pain (purposeful movements to painful stimulus) GCS VERBAL: 4 - Confused Total GCS: 11 [] Sensation grossly intact Psych: Mental Status Alert: [x]Yes [] No Oriented: []x0 [x]X1 []X2 []x3 Mood/Affect [x]Normal []Flat []Agitated []Depressed []Anxious [x]Calm []Sedated []NAD Select Labs within last 24 hours- BMP: Recent Labs 08/18/2441608/19/24 0550 08/20/24 0522 NA 130* 126* 129* K 3.8 4.4 4.0 CL 99 95* 97* CO2 27 24 BUN 35* 28* 41* CREATININE 3.57* 2.98* 3.58* CALCIUM 7.9* 7.4* 7.8* MG 2.0 2.0 2.0 PHOS 3.4 3.8 4.1 CBC: Recent Labs 08/18/2441608/19/24 0550 08/20/24 0522 08/20/24 1024 08/20/24 1250 WBC 4.5 4.0 5.8 -- -- HGB 9.2* 9.3* 9.9* 10.1 10.4 HCT 29.1* 29.5* 30.5* -- -- PLT 111* 114* 145 -- -- MCV 92.1 93.1 90.8 -- -- RDW 15.7* 15.6* 15.5* -- -- ABGs: Recent Labs 08/20/24 1024 08/20/24 1250 PHART 7.209* 7.244* [id number] 71.5* 68.4* PO2ART 63.4* 36.2* [id number] 27.9* 28.9* [id number] Nasal cannula Bi-PAP Labs in Last 3 months: Lab Results Component Value Date TSH 3.472 07/26/2024 INR 1.0 08/13/2024 Microbiology- Urine Cx: Lab Results Component Value Date URINECX >100,000 CFU/mL Abbi albicans (A) 08/13/2024 Blood Cx: Lab Results Component Value Date BLOODCX No growth at 5 days 08/14/2024 Sputum Cx: Lab Results Component Value Date RESPCULT Rare respiratory keven present. 07/27/2024 RESPCULT Few Staphylococcus aureus (A) 07/27/2024 Gram Stain: Lab Results Component Value Date LABGRAM (A) 07/27/2024 Many Polymorphonuclear leukocytes per low power field LABGRAM Few Epithelial cells per low power field (A) 07/27/2024 LABGRAM Moderate Gram positive cocci (A) 07/27/2024 Assessment and Plan: Principal Problem: Hypercapnic respiratory failure (HCC) Assessment: Acute metabolic encephalopathy in the setting of hypercapnia Acute hypoxic and hypercapnic respiratory failure. Currently at baseline. Back to 4 L baseline oxygen. Hypercapnia in the setting of COPD and PAP therapy noncompliance. Respiratory acidosis CAD; Stent placed 7 years ago. On DAPT. Acute exacerbation of COPD, imaging finding showed centrilobular emphysema. No PFT on file. Recent history of septic shock with Staph aureus and multidrug-resistant Pseudomonas infection. MRSE bacteremia, 1 out of 2 bottles. Likely contaminated. Type 1 diabetes mellitus with hyperglycemia ESRD on HD Hypertension hyperlipidemia Pancytopenia. Candiduria Plan: Patient will be transferred to the ICU for continuous lactate. If ABG does not improve in next 2-hour, will possibly switch to AVAPS. Continue prednisone taper. Monitor off antibiotic. Needs med rec for indication of DAPT once acute issues has been resolved. Continue DAPT while patient is in the ICU Continue lantus and Sliding scale, patient is on steroid. Will need close monitoring of blood glucose. Do not hold long acting insulin considering patient's type ! DM status. Continue breathing treatment with. Continue holding sedatives including seroquel Continue dialysis Continue lipitor Continue beta darwin GI Prophylaxis: Protonix DVT Prophylaxis: Heparin subcutaneous BMI Classification: Body mass index is 17.51 kg/m . underweight BMI <18.5 Disposition: Remain in ICU Status Cosigned by Kemar Adames DO at 08/20/2024 9:47 PM EDT Associated attestation - Kemar Adames DO - 08/20/2024 9:47 PM EDT I have personally performed a [id number] diagnostic evaluation on this patient on date of cwadfyj66/18/24. History, labs, imaging studies, and electronic medical record have been reviewed by me. This note documented by the [x]Critical Care Fellow []warehouse incentive selector []TONJA reflects my history, exam, and medical decision making. I have reviewed and agree with the care plan. Changes were made in the orders as necessary. ROS documentation was reviewed and negative unless otherwise stated in HPI. Additional pertinent interval history, ROS, and physical exam findings: AdmitDate = 08/12/2024 LOS: 8 Agree w/ info in fellow HPI Assessment/PLAN: Agree with assessment and plan in resident note with the follow adjustment; If pt continues to have poor trigger or decling trigger and/or non- improving/worsening ABG findingson NIV will consider plaement of ETT. Discussed with family at bedside. In my professional opinion this pt remains critically ill based on the aforementioned assessment/plan: Yes Lifethreatening disease process: Yes Unstable organ failure: No Active vent mgmt: No Active management of life support system(s): No Disposition: Unchanged. Critical Care Time: 35min Or Noncritical Care Time: n/a Total time caring for this patient including direct patient contact, review of data including imaging and labs, discussions with other team members and physicians, excluding procedures. * Trino Sandoval MD - 08/13/2024 1:52 PM EDTAssociated Order(s): IP CONSULT TO INFECTIOUS DISEASES Images from the original note were not included. [facility] - Infectious Diseases Attending Consult Note Reason for Consult: Respiratory distress, change in MS,lethargy, and pancytopenia and candiduria History of Present Illness: 63 F, DMT1, COPD on 4 L, recently admitted to [facility] form 07/26-08/10 for Respiratory failure, treated as aspiration pNA already, septic shock, off presors, UMA/CKD, and finally transferred to Rehab. Overthere she pulled her NC< and found altered, hypoxic, lethargic. Transferred back to [facility], and required NIV initially. Today she is back to her baseline MS, and down to 4 L again. Started on empiricantibiotics. Labs showed decreased CBC, Resp cx and BC pending. Urine cx+ Abbi, has johnson since last admission. She denies fever, TRAYLOR, cough, N/V/D. Just weak overall. ID consulted. Already on empiric antibiotic. Past Medical History: Past Medical History: Diagnosis Date COPD (chronic obstructive pulmonary disease) (HCC) Diabetic neuropathy (HCC) Hyperlipidemia Myocardial infarct (HCC) Stage 4 chronic kidney disease (HCC) Type 1 diabetes (HCC) Past Surgical History: Past Surgical History: Procedure Laterality Date CORONARY ANGIOPLASTY WITH STENT PLACEMENT CORONARY ANGIOPLASTY WITH STENT PLACEMENT Current Medications: Current Facility-Administered Medications Medication Dose Route Frequency Provider Last Rate Last Admin [Held by provider] albuterol 108 (90 Base) MCG/ACT inhaler 2 puff 2 puff Inhalation q6h PRN Ana Rosa Carlin DO [Held by provider] aspirin EC tablet 81 mg 81 mg Oral Daily Ana Rosakosta Carlin DO [Held by provider] atorvastatin (Lipitor) tablet 20 mg 20 mg Oral Nightly Ana Rosa Carlin DO busPIRone (Buspar) tablet 7.5 mg 7.5 mg Oral BID May Wang DO [Held by provider] clopidogrel (Plavix) tablet 75 mg 75 mg Oral Daily Ana Rosa Carlin DO dextrose 5 % infusion 100 mL/hr IntraVENous PRN Ana Rosa Carlin DO dextrose 50 % solution 12.5 g 12.5 g IntraVENous PRN Ana Rosa Carlin DO [Held by provider] fluticasone (Flonase) nasal spray 2 spray 2 spray Each Nostril Daily Ana Rosa Carlin DO gabapentin (Neurontin) capsule 200 mg 200 mg Oral BID May Wang DO glucagon (human recombinant) injection 1 mg 1 mg IntraMUSCular PRN Ana Rosa Carlin DO glucose oral gel 15 g 15 g Oral PRN Ana Rosa Carlin DO [Held by provider] guaiFENesin (Robitussin) 100 MG/5ML liquid 200 mg 200 mg Oral q4h PRN Ana Rosa Carlin DO [Held by provider] heparin injection 1,200-2,000 Units 1,200-2,000 Units IntraCATHeter PRN Janell Booker MD [Held by provider] heparin injection 1,200-2,000 Units 1,200-2,000 Units IntraCATHeter PRN Janell Booker MD [Held by provider] heparin injection 5,000 Units 5,000 Units SubCUTAneous 2 times per day Ana Rosa Carlin DO 5,000 Units at 08/12/242049 insulin glargine (Lantus) injection 2 Units 2 Units SubCUTAneous Nightly Janell Booker MD Insulin Lispro (Humalog) injection 0-12 Units 0-12 Units SubCUTAneous TID Singh Lopez MD ipratropium-albuterol (Duo-Neb) 0.5-2.5 mg/3 mL nebulizer solution 3 mL 3 mL Nebulization TID Ana Rosakosta Carlin DO 3 mL at 08/13/24 09 lisinopril tablet 2.5 mg 2.5 mg Oral Daily Ana Rosa Carlin DO [START ON 08/14/2024] methylPREDNISolone sod suc (PF) (SOLU-Medrol) 40 MG injection 40 mg 40 mg IntraVENous q24h Janell Booker MD [Held by provider] metoprolol tartrate (Lopressor) tablet 50 mg 50 mg Oral BID Ana Rosa Carlin DO mirtazapine (Remeron) tablet 7.5 mg 7.5 mg Oral Nightly May Wang DO [Held by provider] mometasone-formoterol (Dulera 200) 200-5 MCG/ACT inhaler 2 puff 2 puff Inhalation BID Ana Rosa Carlin DO mupirocin (Bactroban) 2 % ointment 1 Application 1 Application Nasal BID Ana Rosa Carlin DO 1 Application at 08/13/24 0906 ondansetron ODT (Zofran-ODT) disintegrating tablet 4 mg 4 mg Oral q8h PRN Ana Rosa Carlin DO Or ondansetron (Zofran) injection 4 mg 4 mg IntraVENous q6h PRN Ana Rosa Carlin DO QUEtiapine (SEROquel) tablet 25 mg 25 mg Oral Nightly May Wang DO 25 mg at 08/13/24 0131 sodium chloride 0.9 % infusion 250 mL/hr IntraVENous PRN April Soto MD [Held by provider] tiotropium (Spiriva Respimat) 2.5 MCG/ACT inhaler 2 puff 2 puff Inhalation DailyAna Rosa Carlin DO Allergies: No Known Allergies Social History: Social History Socioeconomic History Marital status: Spouse name: Not on file Number of children: Not on file Years of education: Not on file Highest education level: Not on file Occupational History Not on file Tobacco Use Smoking status: Never Smokeless tobacco: Never Substance and Sexual Activity Alcohol use: Not on file Drug use: Not on file Sexual activity: Not on file Other Topics Concern Not on file Social History Narrative Not on file Social Determinants of Health Financial Resource Strain: Not on file Food Insecurity: Patient Unable To Answer (08/12/2024) Hunger Vital Sign Worried About Running Out of Food in the Last Year: Patient unable to answer Ran Out of Food in the Last Year: Patient unable to answer Transportation Needs: Patient Unable To Answer (08/12/2024) PRAPARE - Transportation Lack of Transportation (Medical): Patient unable to answer Lack of Transportation (Non-Medical): Patient unable to answer Physical Activity: Not on file Stress: Not on file Social Connections: Not on file Intimate Partner Violence: Patient Unable To Answer (08/12/2024) Humiliation, Afraid, Rape, and Kick questionnaire Fear of Current or Ex-Partner: Patient unable to answer Emotionally Abused: Patient unable to answer Physically Abused: Patient unable to answer Sexually Abused: Patient unable to answer Housing Stability: Patient Unable To Answer (08/12/2024) Housing Stability Vital Sign Unable to Pay for Housing in the Last Year: Patient unable to answer Number of Times Moved in the Last Year: Not on file Homeless in the Last Year: Patient unable to answer Family History: No family history on file. Review of Systems: Review of Systems Constitutional: Positive for fatigue. Negative for chills and fever. HENT: Negative for congestion and sore throat. Respiratory: Positive for shortness of breath (improving). Negative for cough. Cardiovascular: Negative for chest pain and leg swelling. Gastrointestinal: Negative. Musculoskeletal: Negative for arthralgias and myalgias. Neurological: Negative for weakness and headaches. Psychiatric/Behavioral: Positive for decreased concentration (back to baseline per ). Vitals: Patient Vitals for the past 24 hrs: BP Temp Temp src Pulse Resp SpO2 Height Weight 08/13/24 1300 -- -- -- 83 22 99 % -- -- 08/13/24 1239 -- -- -- 86 13 99 % -- -- 08/13/24 1200 (!) 166/71 37.3 C (99.2 F) Axillary 79 16 97 % -- -- 08/13/24 1100 156/66 -- -- 81 19 97 % -- -- 08/13/24 0904 150/88 36.7 C (98.1 F) -- 78 17 99 % -- -- 08/13/24 0900 158/88 -- -- 77 18 98 % -- -- 08/13/24 0813 -- -- -- -- -- -- 1.676 m (5' 6) -- 08/13/24 0800 (!) 173/78 36.7 C (98.1 F) -- 79 18 98 % -- -- 08/13/24 0651 147/60 37.1 C (98.7 F) -- 78 15 -- -- -- 08/13/24 0632 142/62 36.6 C (97.8 F) -- 79 16 -- -- -- 08/13/24 0600 126/51 -- -- 79 17 95 % -- -- 08/13/24 0549 -- -- -- -- -- -- -- 62 kg (136 lb 11 oz) 08/13/24 0500 (!) 133/48 -- -- 81 17 97 % -- -- 08/13/24 0426 -- -- -- 81 -- 100 % -- -- 08/13/24 0400 (!) 115/40 36.8 C (98.3 F) Temporal 78 16 100 % -- -- 08/13/24 0300 (!) 99/45 -- -- 74 22 95 % -- -- 08/13/24 0200 (!) 87/42 -- -- 79 21 96 % -- -- 08/13/24 0100 141/58 -- -- 79 18 98 % -- -- 08/13/24 0000 146/76 37.1 C (98.8 F) Temporal 83 18 98 % -- -- 08/12/24 2330 140/60 37.2 C (98.9 F) -- 79 21 99 % -- -- 08/12/246 -- -- -- 77 -- 100 % -- -- 08/12/24 2300 140/60 -- -- -- -- -- -- -- 08/12/24 2200 (!) 93/36 -- -- 70 22 97 % -- -- 08/12/242100 131/50 36.7 C (98 F) Axillary 76 16 100 % -- -- 08/12/242099 131/50 -- -- 78 20 100 % -- -- 08/12/242044 143/59 37.1 C (98.7 F) Temporal 76 17 100 % -- -- 08/12/242020 -- -- -- 75 23 98 % -- -- 08/12/241999 143/59 -- -- 73 20 100 % -- -- 08/12/24 1900 137/55 36.7 C (98 F) Temporal 71 22 100 % -- -- 08/12/24 1800 (!) 128/47 -- -- 72 20 100 % -- -- 08/12/24 1700 (!) 116/47 -- -- 68 19 100 % -- -- 08/12/24 1648 -- -- -- 69 -- 100 % -- -- 08/12/24 1640 128/84 (!) 35.8 C (96.5 F) Temporal 69 13 100 % 1.676 m (5' 6) 57.5 kg (126 lb 12.2 oz) 08/12/24 1639 -- -- -- 69 -- 100 % -- -- 08/12/24 1627 -- -- -- 67 24 100 % -- -- 08/12/24 1624 (!) 138/45 -- -- 66 18 100 % -- -- 08/12/24 1530 131/55 -- -- 68 18 100 % -- -- 08/12/24 1437 (!) 113/48 -- -- -- -- -- -- -- 08/12/24 1420 93/72 -- -- -- -- -- -- -- 08/12/24 1410 -- -- -- 65 -- 100 % -- -- 08/12/24 1400 86/63 -- -- -- -- -- -- -- Physical Exam: Physical Exam Vitals reviewed. Constitutional: General: She is in acute distress (down to 4 L from NIV). Appearance: She is ill-appearing. HENT: Mouth/Throat: Mouth: Mucous membranes are moist. Pharynx: Oropharynx is clear. Cardiovascular: Rate and Rhythm: Normal rate and regular rhythm. Pulses: Normal pulses. Heart sounds: Normal heart sounds. No murmur heard. Pulmonary: Effort: Pulmonary effort is normal. No respiratory distress. Breath sounds: Normal breath sounds. No wheezing or rales. Abdominal: General: There is no distension. Palpations: Abdomen is soft. Tenderness: There is no abdominal tenderness. Musculoskeletal: General: No swelling. Normal range of motion. Cervical back: Normal range of motion and neck supple. Right lower leg: No edema. Left lower leg: No edema. Lymphadenopathy: Cervical: No cervical adenopathy. Skin: General: Skin is warm. Coloration: Skin is not jaundiced. Findings: No erythema or rash. Neurological: General: No focal deficit present. Mental Status: She is alert and oriented to person, place, and time. Psychiatric: Mood and Affect: Mood normal. Thought Content: Thought content normal. Labs: Recent Labs 08/12/24 1337 08/12/24 2333 08/13/24 0507 NA 132* 130* 134* K 3.6 4.2 3.7 CL 100 100 103 CO2 28 22 19* BUN 19* 20* 18* CREATININE 2.38* 2.56* 2.43* GLUCOSE 229* 220* 211* CALCIUM 6.6* 6.9* 7.1* PROT -- 5.2* -- BILITOT -- 0.9 -- ALKPHOS -- 52 -- AST -- 18 -- ALT -- 13 -- Recent Labs 08/12/24 1337 08/12/24 1604 08/12/24 1820 08/12/24 2333 08/13/24 0057 08/13/24 0507 08/13/24 0658 08/13/24 0918 WBC 4.8 -- 3.8 -- -- 2.5* -- -- HGB 9.1 7.9* < > 6.9* < > 8.7* 6.7* 8.3 9.2* HCT 26.5* -- 22.3* -- 27.5* 21.0* -- 28.3* PLT 89* -- 85* -- -- 65* -- -- LYMPHOPCT 27.1 -- 14.8* -- -- 7* -- -- MONOPCT 13.4* -- 5.0 -- -- 0* -- -- BASOPCT 0.8 -- 0.8 -- -- -- -- -- NEUTROABS 2.7 -- 2.9 -- -- -- -- -- < > = values in this interval not displayed. Micro: No results for input(s): COVID19 in the last 72 hours. RVP: neg BC: 1 set S epidermidis(possible contaminat) Urine cx: C albicans 07/27 Resp cx: MSSA ( treated with Meropenem to 08/02) Lines: PIV Vas cath Radiography/Echo/Other: CT Head: Impression 1. Interval resolution of tiny right subdural hematoma. 2. Bilateral mastoiditis and left otitis media, new compared to 07/26/2024. 3. ASPECTS: 10 CTAngio: IMPRESSION: 1. Interval resolution of tiny RIGHT subdural hematoma. 2. BILATERAL mastoiditis and LEFT otitis media, new compared to 07/26/2024. 3. Perfusion exam demonstrates no acute infarct or at risk territory. 4. CTA demonstrates no large vessel occlusion. 5. Large right and small left pleural effusion with compressive atelectasis and/or infiltrate. Severe centrilobular emphysema. CXR: Impression: Suspect mild pulmonary edema with small pleural effusions. Antimicrobials,Start/End Dates: [id number]- Impression: 63 F, admitted with: Respiratory distress- baseline L NC, was on NIV, now improving- suspect AECOPD, vs flash pulm edema, less aspiration PNA. On empiric antibiotic. Second course, already treated MSSA LRTI 2 weeks ago. MS change- suspect toxic- metabolic encephalopathy instead- improved quickly CT finding of mastoiditis- chornic tinnitus, no localized pain- doubt acute infection. No need to treat. If worsens clinically, consider ENT evaluation. Pancytopenia- trend for now? Viral sequela, less likely P/T AE. IF persists, consider other medication S/E, consider peripheral smear. Candiduria - likely colonization, change johnson If not already done. Consider voiding trial. ESRD-HD Overall clinically improving. Plan: Empiric antibiotic, but low suspicion for active infection. If Culture negative, DC antibiotic. Dr. Casey available if needed this weekend. Based on diagnoses and management, combination of acute and chronic problems, exacerbations and/or acuity, this visit should be considered to be of high complexity. At least total time of 70 minutes on this day of encounter spent on, but not limited to complex history , ordering medications, tests, and procedures, and communication with other health care professions. * Saroj Gaffney MD - 08/13/2024 1:12 PM EDTAssociated Order(s): IP CONSULT TO NEPHROLOGY Images from the original note were not included. Nephrology Consult Note Consult date: 08/13/24 1:12 PM Patient: Sandy Deng Room number: [id number] Date of Admit: 08/12/2024 LOS: 1 days Referring physician: Elizabeth Tyler MD Outpatient X Ray Inspector: Dr. Christy Huerta Reason for Consult UMA requiring dialysis Chief complaint: AMS/hypoxia Assessment / Plan 63 y.o. female with a past medical history of CKD 4, DM type 1, HTN, CAD, COPD (3L O2 baseline), recent admit 07/26-08/10 for septic shock iso PsA/staph PNA and coronavirus infection (stay further c/b UMA requiring HD and SDH) who was admitted on 08/12/2024 with AMS, hypoxia, admitted to ICU with hypercapneic respiratory failure. #Nonoliguric UMA, dialysis dependent: CHEMISTRY INTERN dependent since 07/26 last admit. Baseline Cr had been 2.4-2.8, last (04/26) Cr 2.4 eGFR 20, 24 hr dwjtjek=2140 mg. -Suspected ATN in setting of infection/HD instability vs IRGN (had persistently low c3/4) -Some signs of renal recovery with increasing UOP and relatively stable Cr since 08/11 in 2.3-2.5 range Lytes/Acid-base: #Mixed respiratory/metabolic acidosis- In setting of obstructive lung disease +/- volume overload and renal failure Na 134, K 3.7, bicarb 19, modulated with HD Ca/Phos: Ca 7.1 (Alb 2.9), Phos 3.0 HTN/Volume status: #Acute on chronic hypoxic/hypercapneic respiratory failure #Pneumonia #Bilateral pleural effusions -Hypotensive on arrival, now BP elevated -Required BiPAP on admission to unit now weaned to NC -CXR 08/12 with mild pulm edema and small bilat effusions -UOP 500 ccs/24 hrs without diuretic Pancytopenia: WBCs 2.5, Hgb 6.7, Plt 65 -In setting of recent infection and broad spectrum abx -HIT antibody sent -LDH/hapto normal #ID: -Completed course of meropenem for PsA/staph pneumonia last admit -S/p 1 dose vanc -ID evaluating Access: [facility] 07/29 Case was discussed with ICU team. Recommendations: -HD today primarily for volume removal then monitor for signs of recovery -If BP stable can lasix challenge in AM -Will follow pancytopenia workup per primary, using citrate locks for HD line pending HIT testing -Renal function panel daily Thank you for allowing us to participate in the care of this patient. Please call with any questions. Saroj Gaffney MD [facility] ([facility]) Office phone: [phone] Office fax: [phone] Pager: [phone] 08/13/24 History of Present Illness Sandy Deng is a 63 y.o. female with a past medical history of CKD 4, DM type 1, HTN, CAD, COPD (3L O2 baseline), recent admit 07/26-08/10 for septic shock iso PsA/staph PNA and coronavirus infection (stay further c/b UMA requiring HD and SDH) who was admitted on 08/12/2024 with AMS, hypoxia, admitted to ICU with hypercapneic respiratory failure. Recently discharged to [facility] from [facility] after admission for sepsis/shock as above. Now presentsback 08/12 after being found altered and hypoxic. VBG 7.093/101/44/30, placed on BiPAP and admittedto ICU. After ICU admission became difficult to arouse and had downward gaze- CT Head without acutechange. Placed on EEG without e/o seizure. Neurocritical care team recommending eval for metabolic causes of encephalopathy. Labs otherwise notable for worsening pancytopenia- WBC 2.5, Hgb 6.7, Plt 65. Does not appear patient had HD at [facility] 08/12 (last treatment here 08/10), Cr relatively stable in 2.3-2.5 range since 08/11. CXR on readmit with mild pulm edema and small pleural effusions. Did notably receive about 3.2L LR since readmission. Seen at bedside in ICU this AM. Transitioned to NC. Awake but confused, denies acute complaints. Past Medical History Past Medical History: Diagnosis Date COPD (chronic obstructive pulmonary disease) (HCC) Diabetic neuropathy (HCC) Hyperlipidemia Myocardial infarct (HCC) Stage 4 chronic kidney disease (HCC) Type 1 diabetes (HCC) Past Surgical History Past Surgical History: Procedure Laterality Date CORONARY ANGIOPLASTY WITH STENT PLACEMENT CORONARY ANGIOPLASTY WITH STENT PLACEMENT Family History No family history on file. Social History Social History Socioeconomic History Marital status: Tobacco Use Smoking status: Never Smokeless tobacco: Never Social Determinants of Health Food Insecurity: Patient Unable To Answer (08/12/2024) Hunger Vital Sign Worried About Running Out of Food in the Last Year: Patient unable to answer Ran Out of Food in the Last Year: Patient unable to answer Transportation Needs: Patient Unable To Answer (08/12/2024) PRAPARE - Transportation Lack of Transportation (Medical): Patient unable to answer Lack of Transportation (Non-Medical): Patient unable to answer Intimate Partner Violence: Patient Unable To Answer (08/12/2024) Humiliation, Afraid, Rape, and Kick questionnaire Fear of Current or Ex-Partner: Patient unable to answer Emotionally Abused: Patient unable to answer Physically Abused: Patient unable to answer Sexually Abused: Patient unable to answer Housing Stability: Patient Unable To Answer (08/12/2024) Housing Stability Vital Sign Unable to Pay for Housing in the Last Year: Patient unable to answer Homeless in the Last Year: Patient unable to answer Medications Scheduled Meds:[Held by provider] aspirin, 81 mg, Oral, Daily [Held by provider] atorvastatin, 20 mg, Oral, Nightly busPIRone, 7.5 mg, Oral, BID [Held by provider] clopidogrel, 75 mg, Oral, Daily [Held by provider] fluticasone, 2 spray, Each Nostril, Daily gabapentin, 200 mg, Oral, BID [Held by provider] heparin, 5,000 Units, SubCUTAneous, 2 times per day insulin glargine, 2 Units, SubCUTAneous, Nightly insulin lispro, 0-12 Units, SubCUTAneous, TID WC ipratropium-albuterol, 3 mL, Nebulization, TID lisinopril, 2.5 mg, Oral, Daily [START ON 08/14/2024] methylPREDNISolone sod suc (PF), 40 mg, IntraVENous, q24h [Held by provider] metoprolol tartrate, 50 mg, Oral, BID mirtazapine, 7.5 mg, Oral, Nightly [Held by provider] mometasone-formoterol, 2 puff, Inhalation, BID mupirocin, 1 Application, Nasal, BID QUEtiapine, 25 mg, Oral, Nightly [Held by provider] tiotropium, 2 puff, Inhalation, Daily Continuous Infusions: Allergies No Known Allergies Review of Systems All systems reviewed and neg except as above. Vital Signs Vitals: 08/13/24 1100 08/13/24 1200 08/13/24 1239 08/13/24 1300 BP: 156/66 (!) 166/71 BP Location: Left arm Patient Position: Lying Pulse: 81 79 86 83 Resp: 19 16 13 22 Temp: 37.3 C (99.2 F) TempSrc: Axillary SpO2: 97% 97% 99% 99% Weight: Height: Wt Readings from Last 3 Encounters: 08/13/24 62 kg (136 lb 11 oz) 08/07/24 57.4 kg (126 lb 8.7 oz) Admit Wt: Weight: 57.2 kg (126 lb) Estimated body mass index is 22.06 kg/m as calculated from the following: Height as of this encounter: 1.676 m (5' 6). Weight as of this encounter: 62 kg (136 lb 11 oz). I/O last 3 completed shifts: In: 2480.5 (40 mL/kg) [I.V.:2076 (33.5 mL/kg); Blood:404.5] Out: 501 (8.1 mL/kg) [Urine:501 (0.2 mL/kg/hr)] Weight: 62 kg Net IO Since Admission: 2,253 mL [08/13/24 1312] Physical Exam General: Drowsy, NAD, frail HEENT: Sclera clear, EOMI, MMM, Nose/ears/hearing grossly normal Neck: Supple, trachea midline, no mass, no TM Heart: RRR, no rub/heave Lungs: Clear bilaterally, unlabored Abd: Soft, (+) BS, non-tender Ext: 1+ LE edema Neuro: No tremor/myoclonus Skin: warm and dry, no rash Access: RIJ TDC with clean dressing LABS Labs reviewed. Recent Labs 08/12/24 1337 08/12/24 1604 08/12/24 1820 08/12/24 2333 08/13/24 0057 08/13/24 0507 08/13/24 0658 08/13/24 0918 WBC 4.8 -- 3.8 -- -- 2.5* -- -- HGB 9.1 7.9* < > 6.9* < > 8.7* 6.7* 8.3 9.2* HCT 26.5* -- 22.3* -- 27.5* 21.0* -- 28.3* MCV 95.3 -- 93.3 -- -- 93.3 -- -- PLT 89* -- 85* -- -- 65* -- -- < > = values in this interval not displayed. Recent Labs 08/12/24 1337 08/12/24 2333 08/13/24 0507 NA 132* 130* 134* K 3.6 4.2 3.7 CL 100 100 103 CO2 28 22 19* BUN 19* 20* 18* CREATININE 2.38* 2.56* 2.43* GLUCOSE 229* 220* 211* CALCIUM 6.6* 6.9* 7.1* MG -- -- 1.5* PHOS -- -- 3.0 ANIONGAP 4 7 11 ALBUMIN -- 2.9* -- Recent Labs 08/12/242332 ALT 13 AST 18 ALKPHOS 52 BILITOT 0.9 Diagnostic Studies CXR 08/12 FINDINGS: Right IJ dialysis catheter tips overlie the region of the cavoatrial junction. Probable small right-sided pleural effusion is present. Mild perihilar infiltrate on the right may be infectious or secondary to pulmonary edema. Question tiny pleural effusion on the left. The cardiac silhouette is borderline in size. Small osteophytes of the spine are present at multiple levels. IMPRESSION: Suspect mild pulmonary edema with small pleural effusions. I personally reviewed History and Physical, MAR, labs and imaging as above. * Shanti Bianchi NP - 08/13/2024 9:40 AM EDTAssociated Order(s): IP WOUND CARE NURSE CONSULT TO EVAL Images from the original note were not included. [facility] Wound Care CONSULT Note Sandy Deng AGE: 63 y.o. GENDER: female : 1960 Subjective: HISTORY of PRESENT ILLNESS HPI Sandy Deng is a 63 y.o. female who presents for a wound consult. HPI: Pt is a 63-year-old female with past medical history significant for COPD on 4L NC at baseline, ESRD on HD, T1DM, and recent admission to ICU for septic shock and subdural hematoma who presents to the ED today in respiratory distress. Wound Care consulted for pressure injury. RN at bedside and states the patient is having an EEG at this time and asking not to roll patient to assess backside. PAST MEDICAL HISTORY Past Medical History: Diagnosis Date COPD (chronic obstructive pulmonary disease) (HCC) Diabetic neuropathy (HCC) Hyperlipidemia Myocardial infarct (HCC) Stage 4 chronic kidney disease (HCC) Type 1 diabetes (HCC) PAST SURGICAL HISTORY Past Surgical History: Procedure Laterality Date CORONARY ANGIOPLASTY WITH STENT PLACEMENT CORONARY ANGIOPLASTY WITH STENT PLACEMENT FAMILY HISTORY No family history on file. SOCIAL HISTORY Social History Tobacco Use Smoking status: Never Smokeless tobacco: Never ALLERGIES No Known Allergies MEDICATIONS No current facility-administered medications on file prior to encounter. Current Outpatient Medications on File Prior to Encounter Medication Sig Dispense Refill albuterol 108 (90 Base) MCG/ACT inhaler inhale 2 puffs by mouth and INTO THE LUNGS every 6 hours ifneeded for cough aspirin 81 MG EC tablet Take 1 tablet by mouth daily. Breztri Aerosphere 160-9-4.8 MCG/ACT aerosol busPIRone (Buspar) 7.5 MG tablet Take 1 tablet by mouth 2 times daily. Cholecalciferol ([facility] Vitamin D3) 25 MCG (1000 UT) chewable tablet Chew. clopidogrel (Plavix) 75 MG tablet Take 1 tablet by mouth daily. Continuous Glucose Sensor (Dexcom G6 Sensor) misc Continuous Glucose Transmitter (Dexcom G6 transmitter) misc fluticasone (Flonase) 50 MCG/ACT nasal spray Administer 2 sprays into each nostril daily. Shake gently. Before first use, prime pump. After use, clean tip and replace cap. gabapentin (Neurontin) 100 MG capsule Take 2 capsules (200 mg) by mouth 2 times daily. guaiFENesin (Robitussin) 100 MG/5ML liquid Take 10 mL (200 mg) by mouth every 4 hours as needed forcough or congestion for up to 10 days. insulin glargine (Lantus) 100 UNIT/ML injection Inject 3 Units under the skin Nightly. metoprolol tartrate (Lopressor) 50 MG tablet Take 1 tablet (50 mg) by mouth 2 times daily. mirtazapine (Remeron) 7.5 MG tablet Take 1 tablet by mouth Nightly. [] nitrofurantoin, macrocrystal-monohydrate, (Macrobid) 100 MG capsule Take 1 capsule (100 mg) by mouth 2 times daily for 3 doses. Prolia 60 MG/ML solution prefilled syringe SPS 15 GM/60ML suspension TAKE 30 GRAMS BY MOUTH EVERYDAY FOR ONE DAY Trelegy Ellipta 200-62.5-25 MCG/ACT aerosol powder [DISCONTINUED] gabapentin (Neurontin) 800 MG tablet 400 mg noon 800 mg at night [DISCONTINUED] HumaLOG KWIKPEN 100 UNIT/ML pen injection Inject 12 units 3 times a day by subcutaneous route. [DISCONTINUED] metoprolol tartrate (Lopressor) 50 MG tablet Take 1 tablet by mouth 2 times daily. REVIEW OF SYSTEMS Pertinent items are noted in HPI. Objective: BP 147/60 Pulse 78 Temp 37.1 C (98.7 F) Resp 15 Ht 1.676 m (5' 6) Wt 62 kg (136 lb 11 oz) SpO2 95% BMI 22.06 kg/m PHYSICAL EXAM General appearance: in no apparent distress, well developed and well nourished, and in no respiratory distress and acyanotic Skin: warm and dry Pulmonary: Normal effort, no respiratory distress, no cyanosis Left 4th toe: 0.5 x 0.3 x UTD cm. Small intact dry scab present with no drainage noted, no odor or SOI. Rosana wound dry with ecchymosis present. (Photo 08/13/24) Right neck: Dark purple nonblanchable area noted with no drainage or SOI. Rosana wound dry and fragile. (Photo 08/13/24) LABS CBC: Lab Results Component Value Date WBC 2.5 (L) 08/13/2024 HGB 8.3 08/13/2024 HGB 6.7 (LL) 08/13/2024 HCT 21.0 (L) 08/13/2024 MCV 93.3 08/13/2024 PLT 65 (L) 08/13/2024 BMP: Lab Results Component Value Date NA 134 (L) 08/13/2024 K 3.7 08/13/2024 CL 103 08/13/2024 CO2 19 (L) 08/13/2024 PHOS 3.0 08/13/2024 BUN 18 (H) 08/13/2024 CREATININE 2.43 (H) 08/13/2024 PT/INR: Lab Results Component Value Date PROTIME 11.6 08/13/2024 INR 1.0 08/13/2024 Prealbumin: No results found for: PREALBUMIN Albumin:No components found for: LABALBU Sed Rate:No results found for: SEDRATE Micro: No components found for: BC Assessment/Plan: Left 4th toe: Abrasion -cleanse with NS, apply skin prep barrier wipe daily and PRN, leave ARTI 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 Any questions or concerns please secure chat [facility] wound/ostomy. Thank you for the consult! I personally obtained the cantrell and critical portions of the history and physical exam. I reviewed the labs, imaging studies, and electronic medical record. I reviewed the chart documentation and discussed the patient with treatment team members. I have edited the note to reflect my clinical findingsand my assessment and plan. Please note, the time of this note does not reflect the time I saw thispatient today, but the time of this documentaton. Portions of this note including HPI, ROS, impression/plan, and examination may have been copied forward from admission to today as to provide important historical information essential in contributing to medical decision making. Documentation has been reviewed and edited as necessary to support clinical decision making for today's visit and to reflect my own independent evaluation of this patient. Decision making for today's visit and to reflectmy own independent evaluation of this patient. Cosigned by Alex Duff DO at 08/17/2024 8:37 AM EDT * Jomar Snider MD - 08/12/2024 11:04 PM EDT STROKE TEAM NOTE Patient Name: Sandy Deng Patient : 1960 Acct: [id number] Date of Admission: 08/12/2024 [facility] PCP: Bird Lujan Stroke team; Floor History of Present Ilness: 63 y.o.female with chief Complaint of: Acute change in mental status, left downward gaze deviation, nonsymmetrical pupillary size. Patient recently admitted with septic shock secondary to polymicrobial pneumonia, subdural hematoma, admitted 07/26/2024-08/10/2024. Patient representing today and admitted to intensive care unit for acute hypoxic respiratory failure on Precedex drip due to agitation then became hypotensive BP 93/36 being weaned off and experienced acute onset of symptoms at 9:00 pm 08/12. Upon assessment of patient in CT Patient is A&O x O, and none verbal but able to follow simple commands. NIH on initial assessment was 13. Imaging obtained consisted of CT head without contrast, CT angiogram of the head and neck, CT perfusion. Onset time: last seen well;08/12/24 9:00 pm ED arrival: 2245 Stroke teamactivation 2245 NIHSS upon arrival:13 Associated symptoms: Altered mental status, alert and oriented x 0 outside of baseline. This occurred in the setting of: Patient with past medical history of COPD, ESRD on hemodialysis, type 1 diabetes mellitus, recent admission for septic shock and subdural hematoma. Per chart review patient on aspirin 81 mg daily, clopidogrel 75 mg daily. Preadmission secondary prevention antiplatelets and statins: On 81 mg aspirin daily, 75 mg clopidogrel daily History of AF: Contraindications for thrombolytic treatment: Yes no acute abnormality identified on imaging. Past Medical History: COPD ESRD on hemodialysis Type 1 diabetes mellitus Past Surgical History: Home Medications: Prior to Admission medications Medication Sig Start Date End Date Taking? Authorizing Provider albuterol 108 (90 Base) MCG/ACT inhaler inhale 2 puffs by mouth and INTO THE LUNGS every 6 hours ifneeded for cough Historical Provider, aspirin 81 MG EC tablet Take 1 tablet by mouth daily. Historical Provider, MD Mccullough Aerosphere 160-9-4.8 MCG/ACT aerosol 07/20/24 Historical Provider, busPIRone (Buspar) 7.5 MG tablet Take 1 tablet by mouth 2 times daily. Historical Provider, Cholecalciferol ([facility] Vitamin D3) 25 MCG (1000 UT) chewable tablet Chew. Historical Provider, clopidogrel (Plavix) 75 MG tablet Take 1 tablet by mouth daily. Historical Provider, Continuous Glucose Sensor (Dexcom G6 Sensor) [facility] [place] 07/22/24 Historical Provider, Continuous Glucose Transmitter (Dexcom G6 transmitter) [facility] [place] 07/25/24 Historical Provider, estradiol (Estrace) 1 MG tablet Take 1 mg by mouth in the morning. Historical Provider, fluticasone (Flonase) 50 MCG/ACT nasal spray Administer 2 sprays into each nostril daily. Shake gently. Before first use, prime pump. After use, clean tip and replace cap. 08/10/24 08/10/25 Khai Espana, gabapentin (Neurontin) 100 MG capsule Take 2 capsules (200 mg) by mouth 2 times daily. 08/10/24 08/10/25 Khai Espana DO guaiFENesin (Robitussin) 100 MG/5ML liquid Take 10 mL (200 mg) by mouth every 4 hours as needed forcough or congestion for up to 10 days. 08/10/24 08/20/24 Khai Espana DO Insulin Disposable Pump (Omnipod 5 [id number] Intro Gen 5) kit 12/03/23 Historical Provider, Insulin Disposable Pump (Omnipod 5 [id number] Pods Gen 5) misc 07/15/24 Historical Provider, insulin glargine (Lantus) 100 UNIT/ML injection Inject 3 Units under the skin Nightly. 08/10/24 Jenae Espana DO ipratropium-albuterol (Duo-Neb) 0.5-2.5 mg/3 mL nebulizer solution inhale contents of 1 vial ( 3 MLS ) in nebulizer by mouth and INTO THE LUNGS every 4 hours 10/29/23 Historical Provider, Kerendia 10 MG tablet Take 1 tablet by mouth daily. 10/22/23 Historical Provider, levoFLOXacin (Levaquin) 750 MG tablet take 1 tablet by mouth every 24 hours for 7 days 11/04/23 Historical Provider, lisinopril 2.5 MG tablet Take 2.5 mg by mouth in the morning. Historical Provider, metoprolol tartrate (Lopressor) 50 MG tablet Take 1 tablet (50 mg) by mouth 2 times daily. 08/10/24 Khai Espana DO mirtazapine (Remeron) 7.5 MG tablet Take 1 tablet by mouth Nightly. Historical Provider, nitrofurantoin, macrocrystal-monohydrate, (Macrobid) 100 MG capsule Take 1 capsule (100 mg) by mouth 2 times daily for 3 doses. 08/10/24 08/12/24 Khai Espana DO nitroglycerin (Nitrostat) 0.4 MG SL tablet 07/15/24 Historical Provider, Prolia 60 MG/ML solution prefilled syringe Historical Provider, simvastatin (Zocor) 40 MG tablet Take 40 mg by mouth daily. 07/14/24 Historical Provider, SPS 15 GM/60ML suspension TAKE 30 GRAMS BY MOUTH EVERYDAY FOR ONE DAY Historical Provider, Treletim Ellipta 200-62.5-25 MCG/ACT aerosol powder 05/12/24 Historical Provider, gabapentin (Neurontin) 800 MG tablet 400 mg noon 800 mg at night 08/10/24 Historical Provider, HumaLOG KWIKPEN 100 UNIT/ML pen injection Inject 12 units 3 times a day by subcutaneous route. 08/10/24 Historical Provider, metoprolol tartrate (Lopressor) 50 MG tablet Take 1 tablet by mouth 2 times daily. 08/10/24 Historical Provider, Current Hospital Medications: Current Facility-Administered Medications: [Held by provider] albuterol 108 (90 Base) MCG/ACT inhaler 2 puff, 2 puff, Inhalation, q6h PRN, Ana Rosakosta Irizarry Carlin, DO [Held by provider] aspirin EC tablet 81 mg, 81 mg, Oral, Daily, Ana Rosakosta Irizarry Carlin, DO [Held by provider] atorvastatin (Lipitor) tablet 20 mg, 20 mg, Oral, Nightly, Ana Rosakosta Irizarry Carlin, DO [Held by provider] busPIRone (Buspar) tablet 7.5 mg, 7.5 mg, Oral, BID, Ana Rosakosta Irizarry Carlin, DO [Held by provider] clopidogrel (Plavix) tablet 75 mg, 75 mg, Oral, Daily, Ana Rosakosta Irizarry Carlin, DO dexmedeTOMIDine in NS (Precedex) 400 mcg in 100 mL (4 mcg/mL) infusion, 0.1-1.5 mcg/kg/hr, IntraVENous, Continuous, May Wang, DO, Last Rate: 2.88 mL/hr at 08/12/242014, 0.2 mcg/kg/hr at 08/12/242014 dextrose 5 % infusion, 100 mL/hr, IntraVENous, PRN, Ana Rosakosta Pros, DO dextrose 50 % solution 12.5 g, 12.5 g, IntraVENous, PRN, Ana Rosakosta Irizarry Carlin, DO [Held by provider] fluticasone (Flonase) nasal spray 2 spray, 2 spray, Each Nostril, Daily, Ana Rosakosta Irizarry Carlin, DO [Held by provider] gabapentin (Neurontin) capsule 200 mg, 200 mg, Oral, BID, Ana Rosa Edie Carlin, DO glucagon (human recombinant) injection 1 mg, 1 mg, IntraMUSCular, PRN, Ana Rosakosta Irizarry Carlin, DO glucose oral gel 15 g, 15 g, Oral, PRN, Ana Rosakosta Irizarry Carlin, DO [Held by provider] guaiFENesin (Robitussin) 100 MG/5ML liquid 200 mg, 200 mg, Oral, q4h PRN, AmMyrna Carlin, DO [Held by provider] heparin injection 5,000 Units, 5,000 Units, SubCUTAneous, 2 times per day, Ana Rosa Irizarry Carlin, DO, 5,000 Units at 08/12/242049 Insulin Lispro (Humalog) injection 0-6 Units, 0-6 Units, SubCUTAneous, q6h, Ana Rosa Pros DO,3 Units at 08/12/241823 ipratropium-albuterol (Duo-Neb) 0.5-2.5 mg/3 mL nebulizer solution 3 mL, 3 mL, Nebulization, TID, Ana Rosa Pros DO, 3 mL at 08/12/24 2019 [Held by provider] lisinopril tablet 2.5 mg, 2.5 mg, Oral, Daily, Ana Rosa Carlin DO methylPREDNISolone sod suc (PF) (SOLU-Medrol) 40 MG injection 40 mg, 40 mg, IntraVENous, q6h, Ana Rosakosta Pros, DO, 40 mg at 08/12/24 1640 [Held by provider] metoprolol tartrate (Lopressor) tablet 50 mg, 50 mg, Oral, BID, Ana Rosakosta Pros, DO [Held by provider] mirtazapine (Remeron) tablet 7.5 mg, 7.5 mg, Oral, Nightly, Ana Rosakosta Carlin DO [Held by provider] mometasone-formoterol (Dulera 200) 200-5 MCG/ACT inhaler 2 puff, 2 puff, Inhalation, BID, Ana Rosakosta Pros DO mupirocin (Bactroban) 2 % ointment 1 Application, 1 Application, Nasal, BID, Ana Rosa Pros DO, 1 Application at 08/12/242049 ondansetron ODT (Zofran-ODT) disintegrating tablet 4 mg, 4 mg, Oral, q8h PRN OR ondansetron (Zofran) injection 4 mg, 4 mg, IntraVENous, q6h PRN, Ana Rosa Pros DO sodium chloride 0.9 % infusion, 250 mL/hr, IntraVENous, PRN, April Soto MD [Held by provider] tiotropium (Spiriva Respimat) 2.5 MCG/ACT inhaler 2 puff, 2 puff, Inhalation, Daily, Ana Rosa Carlin DO Continuous Infusions: dexmedeTOMIDine, 0.1-1.5 mcg/kg/hr, Last Rate: 0.2 mcg/kg/hr (08/12/242014) Allergies: Patient has no known allergies. Social History: TOBACCO: reports that she has never smoked. She has never used smokeless tobacco. ETOH: has no history on file for alcohol use. RECREATIONAL DRUG USE: Social History Substance and Sexual Activity Drug Use Not on file FamilyHistory: :Unable to obtain, due to patient level of consciousness, no data on file, no family able to provide information \ ROS; :Unable to obtain review of systems due to patient's mental status and lack of cooperation Review of Systems Reason unable to perform ROS: Unable to obtain due to patient's mental status. Physical Examination: Patient Vitals for the past 8 hrs: BP Temp Temp src Pulse Resp SpO2 Height Weight 08/12/242100 131/50 36.7 C (98 F) Axillary 76 16 100 % -- -- 08/12/242099 131/50 -- -- 78 20 100 % -- -- 08/12/24 204 143/59 37.1 C (98.7 F) Temporal 76 17 100 % -- -- 08/12/242020 -- -- -- 75 23 98 % -- -- 08/12/241999 143/59 -- -- 73 20 100 % -- -- 08/12/24 1900 137/55 36.7 C (98 F) Temporal 71 22 100 % -- -- 08/12/24 1800 (!) 128/47 -- -- 72 20 100 % -- -- 08/12/24 1700 (!) 116/47 -- -- 68 19 100 % -- -- 08/12/24 1648 -- -- -- 69 -- 100 % -- -- 08/12/24 1640 128/84 (!) 35.8 C (96.5 F) Temporal 69 13 100 % 5' 6 (1.676 m) 126 lb 12.2 oz (57.5 kg) 08/12/24 1639 -- -- -- 69 -- 100 % -- -- 08/12/24 1627 -- -- -- 67 24 100 % -- -- 08/12/24 1624 (!) 138/45 -- -- 66 18 100 % -- -- 08/12/24 1530 131/55 -- -- 68 18 100 % -- -- I/O last 3 completed shifts: In: 146 (2.5 mL/kg) [I.V.:146 (2.5 mL/kg)] Out: 400 (7 mL/kg) [Urine:400 (0.2 mL/kg/hr)] Weight: 57.5 kg VITAL SIGNS : HR 79 , BP 140/60 , RR 21. Pulse Ox 99 General Physical Examination: General: Nonverbal, able to follow simple commands HEENT:Normocephalic, atraumaticl CV: S1+S2, RRR, no MRG. Pulm: Rhonchorous sounding lungs on the right Abdomen: Soft NT/ND. BS + Skin: Intact without ulcers, breakdowns or discoloration Extremities: normal with no edema or cyanosis Orthopedic limitation; N/A Pulses: Intact peripherally Carotid auscultation :No bruits Neurological Examination: Higher Functions: Mental Status Exam: Level of Alertness:Somnolent but arrousable Orientation: Limited by level ofconsciousness Memory: Limited by level of consciousness Fund of Knowledge: Limited by level ofconsciousness Language: Limited bylevel of consciousness Dysarthria consistent with somnolence/ sedation Cranial Nerves: -II Visual acuity: normal -II Visual russell: normal -III Pupils (~ 3 mm OD, 3 mm OU) equal, round, reactive to light -III-IV- Extraocular Movements: intact -Nystagmus not present -Saccades and pursuits normal -V Facial sensation: intact -VII Facial strength: intact -VIII Hearing: intact -IX-X- Gag reflex present -X Palate:intact -XI Shoulder shrug: -XII Tongue movement: Funduscopic Exam: Motor Examination: Tone after evaluation of 4 limbs, the following findings applied: Normal -Bulk: normal -Muscle Stretchafter evaluation of all limbs, and axial musculature the following findings applied: -Reflexes: after evaluation of 4 limbs, the following findings applied -Plantar responce: Flexor bilaterally Sensory Intact to light touch, pain / temperature, proprioception, Coordination: Arms limited reliability of exam/ poorparticipation Legs limited reliability of exam/ poor participation Tremors No Gait abnormal, patient unable to walk due to acute circumstances / bedrest / safety concerns NIHSS 1a Level of consciousness: 1=not alert but arousable by minor stimulation to obey, answer or respond 1b. LOC questions: 2=Performs neither task correctly 1c. LOC commands: 0=Performs both tasks correctly 2. Best Gaze: 1=partial gaze palsy 3. Visual: 0=No visual loss 4. Facial Palsy: 0=Normal symmetric movement 5a. Motor left arm: 1=Drift, limb holds 90 (or 45) degrees but drifts down before full 10 seconds: does not hit bed 5b. Motor right arm: 1=Drift, limb holds 90 (or 45) degrees but drifts down before full 10 seconds:does not hit bed 6a. motor left le=Some effort against gravity, limb cannot get to or maintain (if cured) 90 (or45) degrees, drifts down to bed, but has some effort against gravity 6b Motor right le=Some effort against gravity, limb cannot get to or maintain (if cured) 90 (or45) degrees, drifts down to bed, but has some effort against gravity 7. Limb Ataxia: 0=Absent 8. Sensory: 0=Normal; no sensory loss 9. Best Language: 3=Mute, global aphasia; no usable speech or auditory comprehension 10. Dysarthria: 0=Normal 11. Extinction and Inattention: 0=No abnormality 12. Distal motor function: 0=Normal Total: 13 Ancillary Data: Labs: Recent Results (from the past 24 hour(s)) CBC Collection Time: 08/12/24 6:00 AM Result Value Ref Range Auto WBC 4.3 3.6 - 10.7 10*3/uL RBC 2.53 (L) 3.80 - 5.20 10*6/uL Hemoglobin 7.2 (L) 11.7 - 16.0 g/dL Hematocrit 23.9 (L) 35.0 - 47.0 % MCV 94.5 77.0 - 99.0 fL MCH 28.5 26.0 - 34.0 pg MCHC 30.1 (L) 30.5 - 36.0 % RDW 16.6 (H) 11.5 - 15.0 % Platelets 95 (L) 140 - 440 10*3/uL MPV 11.0 9.0 - 12.7 fL IPF 5 NT PRO BNP Collection Time: 08/12/24 6:00 AM Result Value Ref Range NT PRO BNP >30,000 (H) <125 pg/mL ECG 12 lead Collection Time: 08/12/24 1:04 PM Result Value Ref Range Heart Rate 61 bpm QRSD Interval 96 ms QT Interval 445 ms QTC Interval 450 ms P [place] 76 degrees QRS [place] -24 degrees T Wave [place] 51 degrees [place] Interval 162 ms Basic metabolic panel Collection Time: 08/12/24 1:37 PM Result Value Ref Range SODIUM 132 (L) 135 - 145 mmol/L POTASSIUM 3.6 3.5 - 5.1 mmol/L CHLORIDE 100 98 - 107 mmol/L CARBON DIOXIDE 28 22 - 30 mmol/L UREA NITROGEN 19 (H) 7 - 17 mg/dL CREATININE 2.38 (H) 0.52 - 1.04 mg/dL GLUCOSE 229 (H) 70 - 100 mg/dL CALCIUM 6.6 (L) 8.4 - 10.4 mg/dL ANION GAP 4 3 - 13 mmol/L eGFR 22.3 (L) >60.0 mL/min/1.73m*2 CBC auto differential Collection Time: 08/12/24 1:37 PM Result Value Ref Range Auto WBC 4.8 3.6 - 10.7 10*3/uL RBC 2.78 (L) 3.80 - 5.20 10*6/uL Hemoglobin 7.9 (L) 11.7 - 16.0 g/dL Hematocrit 26.5 (L) 35.0 - 47.0 % MCV 95.3 77.0 - 99.0 fL MCH 28.4 26.0 - 34.0 pg MCHC 29.8 (L) 30.5 - 36.0 % RDW 16.5 (H) 11.5 - 15.0 % Platelets 89 (L) 140 - 440 10*3/uL MPV 11.3 9.0 - 12.7 fL nRBC 0.0 0.0 - 2.0 /100 WBCs Neutrophils Relative 55.6 38.0 - 82.0 % Lymphocytes Relative 27.1 15.0 - 45.0 % Monocytes Relative 13.4 (H) 5.0 - 13.0 % Eosinophils Relative 2.5 0.0 - 6.0 % Basophils Relative 0.8 0.0 - 2.0 % Immature Grans % 0.6 0.0 - 2.0 % Neutrophils Absolute 2.7 1.8 - 7.5 10*3/uL Lymphocytes Absolute 1.3 1.0 - 4.3 10*3/uL Monocytes Absolute 0.6 0.0 - 0.9 10*3/uL Eosinophils Absolute 0.1 0.0 - 0.5 10*3/uL Basophils Absolute 0.0 0.0 - 0.2 10*3/uL Immature Grans Absolute 0.0 <0.1 10*3/uL IPF 5 Troponin, with Serial Reflex Collection Time: 08/12/24 1:37 PM Result Value Ref Range TROPONIN I 0.046 (H) <0.034 ng/mL NT PRO BNP Collection Time: 08/12/24 1:37 PM Result Value Ref Range NT PRO BNP >30,000 (H) <125 pg/mL Blood gas, venous ([facility] and [facility]) Collection Time: 08/12/24 1:37 PM Result Value Ref Range pH, Venous 7.093 (L) 7.330 - 7.430 pCO2, Venous 101.8 (H) 40.0 - 55.0 mm Hg pO2, Venous 44.4 mm Hg HCO3, Venous 30.4 (H) 23.0 - 27.0 mmol/L O2 Sat, Venous 74.5 % Base Excess, Venous -0.7 -3.0 - 3.0 mmol/L Hgb, blood gas 9.1 Screen only g/dl TCO2, Venous 33.5 (H) 24.0 - 28.0 mmol/L Source Of Oxygen Nasal cannula Blood culture Site #1 - Suspected Infection Collection Time: 08/12/24 1:37 PM Specimen: Blood, Venous Result Value Ref Range Blood Culture Blood culture incubation started Blood culture Site #2 - Suspected Infection Collection Time: 08/12/24 1:37 PM Specimen: Blood, Venous Result Value Ref Range Blood Culture Blood culture incubation started Lactic acid with reflex Collection Time: 08/12/24 1:37 PM Result Value Ref Range LACTIC ACID 1.6 0.7 - 2.0 mmol/L Troponin I Collection Time: 08/12/24 4:04 PM Result Value Ref Range TROPONIN I 0.046 (H) <0.034 ng/mL Blood gas, venous Collection Time: 08/12/24 4:04 PM Result Value Ref Range pH, Venous 7.262 (L) 7.330 - 7.430 pCO2, Venous 58.7 (H) 40.0 - 55.0 mm Hg pO2, Venous 73.2 mm Hg HCO3, Venous 25.9 23.0 - 27.0 mmol/L O2 Sat, Venous 94.9 % Base Excess, Venous -1.4 -3.0 - 3.0 mmol/L Hgb, blood gas 7.7 Screen only g/dl TCO2, Venous 27.7 24.0 - 28.0 mmol/L Source Of Oxygen Bi-PAP CBC auto differential Collection Time: 08/12/24 6:20 PM Result Value Ref Range Auto WBC 3.8 3.6 - 10.7 10*3/uL RBC 2.39 (L) 3.80 - 5.20 10*6/uL Hemoglobin 6.9 (LL) 11.7 - 16.0 g/dL Hematocrit 22.3 (L) 35.0 - 47.0 % MCV 93.3 77.0 - 99.0 fL MCH 28.9 26.0 - 34.0 pg MCHC 30.9 30.5 - 36.0 % RDW 16.4 (H) 11.5 - 15.0 % Platelets 85 (L) 140 - 440 10*3/uL MPV 10.6 9.0 - 12.7 fL nRBC 0.0 0.0 - 2.0 /100 WBCs Neutrophils Relative 76.0 38.0 - 82.0 % Lymphocytes Relative 14.8 (L) 15.0 - 45.0 % Monocytes Relative 5.0 5.0 - 13.0 % Eosinophils Relative 2.9 0.0 - 6.0 % Basophils Relative 0.8 0.0 - 2.0 % Immature Grans % 0.5 0.0 - 2.0 % Neutrophils Absolute 2.9 1.8 - 7.5 10*3/uL Lymphocytes Absolute 0.6 (L) 1.0 - 4.3 10*3/uL Monocytes Absolute 0.2 0.0 - 0.9 10*3/uL Eosinophils Absolute 0.1 0.0 - 0.5 10*3/uL Basophils Absolute 0.0 0.0 - 0.2 10*3/uL Immature Grans Absolute 0.0 <0.1 10*3/uL IPF 4 POCT glucose meter Collection Time: 08/12/24 6:20 PM Result Value Ref Range Glucose 259 (H) 70 - 100 mg/dL Reticulocytes Collection Time: 08/12/24 6:20 PM Result Value Ref Range Retic Ct Pct 2.41 % Troponin I Collection Time: 08/12/24 6:52 PM Result Value Ref Range TROPONIN I 0.052 (H) <0.034 ng/mL Iron and TIBC Collection Time: 08/12/24 6:52 PM Result Value Ref Range IRON, TOTAL 71 37 - 170 ug/dL IRON BINDING CAPACITY 158 (L) 261 - 497 ug/dL IRON SATURATION 45 15 - 50 % Ferritin Collection Time: 08/12/24 6:52 PM Result Value Ref Range FERRITIN 231 11 - 264 ng/mL Folate Collection Time: 08/12/24 6:52 PM Result Value Ref Range FOLATE RESULT 10.8 >=2.9 ng/mL Vitamin B12 Collection Time: 08/12/24 6:52 PM Result Value Ref Range VITAMIN B12 932 (H) 239 - 931 pg/mL Type and screen Collection Time: 08/12/24 7:07 PM Result Value Ref Range ABO Grouping O Antibody Screen NEG Rh Type POS Prepare RBC: 1 Units Collection Time: 08/12/24 8:47 PM Result Value Ref Range PRODUCT CODE [id number] Unit Number [id number] Unit ABO O Unit RH POS Crossmatch interpretation COMP Dispense Status Transfused Blood Expiration Date Product Blood Type 5100 Unit Volume 300 mL Radiology: CT head: Impression 1. Interval resolution of tiny right subdural hematoma. 2. Bilateral mastoiditis and left otitis media, new compared to 07/26/2024. 3. ASPECTS: 10 CTA: IMPRESSION: 1. Interval resolution of tiny RIGHT subdural hematoma. 2. BILATERAL mastoiditis and LEFT otitis media, new compared to 07/26/2024. 3. Perfusion exam demonstrates no acute infarct or at risk territory. 4. CTA demonstrates no large vessel occlusion. 5. Large right and small left pleural effusion with compressive atelectasis and/or infiltrate. Severe centrilobular emphysema. CT perfusion: Impression 1. Interval resolution of tiny right subdural hematoma. 2. Bilateral mastoiditis and left otitis media, new compared to 07/26/2024. 3. ASPECTS: 10 ASSESSMENT On assessment patient is a 63-year-old female, prior history of COPD, ESRD on hemodialysis. With symptoms of altered mental status left downward gaze deviation, nonsymmetric pupillary size. Imaging obtained including CT perfusion, CT angiogram of the head neck with and without contrast, CT of the head without contrast, results showing interval resolution of right subdural hematoma, no acute vessel occlusion, or stroke identified. Would favor ruling out metabolic/infectious causes. PLAN/RECOMMENDATIONS: -No acute neurological intervention at this time. -Consider consider Keppra for seizure prophylaxis and continuous EEG given history of SDH. -Patient to be taken back to ICU T3 for additional observation/management. Reason for no use of thrombolytic if applicable:NOT A STROKE Reason if no thrombectomy if applicable: Not a stroke Discussed with Dr. Dr. Nuñez . Cosigned by Randall Nuñez MD at 08/13/2024 3:31 AM EDT Associated attestation - Randall Nuñez MD - 08/13/2024 3:31 AM EDT Stroke attending note I participated in the telestroke team, evaluated all the imaging personally and planned further management. 63-year-old woman with end-stage renal disease on hemodialysis presented with hypercarbic respiratory failure. She was found difficult to arouse with downward gaze while in the ICU. She has recent history of subdural, nonop Stroke team was activated. CT of the head does not show any acute hematoma or ischemia. CT perfusion does not show any area of significant mismatch. CT angiogram does not show any large vessel occlusion or critical stenosis. Impression at this time the differentials include acute encephalopathy from toxic metabolic etiology versus postictal encephalopathy versus multifocal acute ischemic strokes. Patient is out of window for intravenous thrombolytics and are contraindicated because of recent subdural hematoma. There is no large vessel occlusion. Evaluate from metabolic causes of toxic metabolic encephalopathy including pCO2, detailed electrolyte and ID workup. Extended EEG because patient is at risk of seizures. Prophylactically administer for 100 mg of Keppra intravenous and then to 50 mg of Keppra daily IV. Give additional load of 250 mg after every dialysis. MRI brain. Continue non thrombolytic stroke workup documented in this [facility]10-21-2024 Hospital Discharge instructions* Discharge Instr - CHELO* Sindy Garrison RN - 08/23/2024 1:25 PM EDT Images from the original note were not included. Continuity of Care Form Patient Name: Sandy Deng : 1960 Admit date: 08/12/2024 Discharge date: 08/24/24 Code Status Order: Full Code Advance Directives: N Admitting Physician: Kemar Adames DO PCP: Bird Lujan Discharging Nurse: sindy soriano Discharging Hospital Unit/Room#: W6-641/W6-641 A Discharging Unit Emergency Contact: Extended Emergency Contact Information Primary Emergency Contact: Bobbi Steward Mobile Relation: Daughter Preferred language: [place] Driller Hand needed? No Secondary Emergency Contact: IshJose Mobile Relation: Spouse Preferred language: [place] Driller Hand needed? No Past Surgical History: Past Surgical History: Procedure Laterality Date CORONARY ANGIOPLASTY WITH STENT PLACEMENT CORONARY ANGIOPLASTY WITH STENT PLACEMENT Immunization History: Immunization History Administered Date(s) Administered DT (pediatric) 04/30/1995 Influenza, injectable, quadrivalent 07/08/2017, 08/28/2022 Influenza, injectable, quadrivalent, preservative free 08/28/2020 Influenza, seasonal, injectable 08/07/2015, 07/15/2016, 08/12/2018 Influenza, seasonal, injectable, preservative free 08/03/2014, 08/11/2017, 07/24/2024 Moderna SARS-CoV-2 Vaccination 02/22/2021, 03/22/2021 Pneumococcal Conjugate PCV 13 01/31/2021 Pneumococcal Polysaccharide PPSV23 08/12/2016, 09/20/2020 Pneumococcal, Unspecified 09/20/2020 Tdap 07/08/2017 Zoster, Recombinant 08/28/2022 Active Problems: Medical Problems Problem List * (Principal) Hypercapnic respiratory failure (HCC) SDH (subdural hematoma) (HCC) COPD (chronic obstructive pulmonary disease) (HCC) Type 1 diabetes mellitus with kidney complication (HCC) Myocardial infarction (HCC) Hyperlipidemia Diabetic neuropathy associated with type 1 diabetes mellitus (HCC) Stage 4 chronic kidney disease (HCC) Acute renal failure (HCC) Anemia Anxiety disorder due to medical condition Atherosclerosis of coronary artery Chest pain Chronic constipation Cigarette smoker Adrian's sign present Depressive disorder Diabetic ketoacidosis (CMS/HCC) (HCC) Diabetic polyneuropathy (CMS/HCC) (HCC) Dizziness Gastroparesis History of coronary artery stent placement Hypocalcemia Hypoglycemia Injury of kidney Intermittent palpitations Intractable vomiting with nausea Multiple pulmonary nodules Nicotine dependence Hypertension Respiratory failure with hypoxia (HCC) Skin lesion of foot Solitary pulmonary nodule Underweight Wheezing Isolation/Infection: No active isolations ESBL Nurse Assessment: Last Vital Signs: BP 141/68 (BP Location: Left arm, Patient Position: Lying) Pulse 78 Temp 36.3C (97.3 F) (Temporal) Resp 16 Ht 1.676 m (5' 6) Wt 55.4 kg (122 lb 2.2 oz) SpO2 100% BMI19.71 kg/m Last documented pain score (0-10 scale): Last Weight: Wt Readings from Last 1 Encounters: 08/23/24 55.4 kg (122 lb 2.2 oz) Mental Status: CHELO Patient Mental Status: oriented, alert, coherent, logical, thought processes intact, and able to concentrate and follow conversation IV Access: CHELO IV Access: Dialysis Catheter - site: tunneled IJ, insertion date: 08/12/24 Nursing Mobility/ADLs: Walking Minimal assistance Transfer Minimal assistance Bathing Minimal assistance Dressing Minimal assistance Toileting Minimal assistance Feeding Minimal assistance Engraving Operator Minimal assistance Med Delivery yes Wound Care Documentation and Therapy: Wound/Incision 08/12/24 Other (comment) Toe - fourth Anterior;Left (Active) Site Assessment Black 08/23/24 08 Rosana-Wound Assessment Pale;Purple 08/23/24 08 Drainage Description Unable to assess 08/22/242052 Odor None 08/23/24 08 Drainage Amount None 08/23/24 08 Treatments Site care 08/23/24 08 Primary Dressing Open to air 08/23/24 08 Topical Other 08/15/24 0700 Number of days: 11 Wound/Incision 08/18/24 Pressure Injury Coccyx (Active) Site Assessment Painful;Pale;Pinson 08/23/24 08 Rosana-Wound Assessment Blanchable erythema;Fragile;Intact 08/23/24 08 Wound Length (cm) 1.5 cm 08/18/242009 Wound Width (cm) 1.5 cm 08/18/242009 Wound Surface Area (cm^2) 2.25 cm^2 08/18/242009 Drainage Description Unable to assess 08/22/242052 Odor None 08/23/24799 Drainage Amount None 08/23/24799 Treatments Cleansed;Moisture barrier ointment 08/22/242052 Primary Dressing Foam 08/23/24799 Dressing Status Clean, dry & intact 08/23/24799 Number of days: 4 Elimination: Continence: Bowel: yes Bladder: yes Urinary Catheter: Insertion date: 08/23/24 Colostomy/Ileostomy/Ileal Conduit: None Date of Last BM: 08/23/24 Intake/Output Summary (Last 24 hours) at 08/23/2024 1324 Last data filed at 08/23/2024 1215 Gross per 24 hour Intake 720 ml Output 1015 ml Net -295 ml I/O last 3 completed shifts: In: 1635 (29.5 mL/kg) [P.O.:1635] Out: 1585 (28.6 mL/kg) [Urine:1585 (0.8 mL/kg/hr)] Weight: 55.4 kg Safety Concerns: at risk for falls Impairments/Disabilities: vision and hearing Nutrition Therapy: Current Nutrition Therapy: Oral diet: general Routes of Feeding: oral Liquids: thin liquids Daily Fluid Restriction: no Last Modified Barium Swallow with Video (Video Swallowing Test): not done Treatments at the Time of Hospital Discharge: Respiratory Treatments: nebulizers Oxygen Therapy: is on oxygen at 3 L/min per nasal cannula. Ventilator: BiPAP: Inspiratory Positive Airway Pressure (IPAP) (cmH20): 12 cmH20 Expiratory Positive Airway Pressure (EPAP) (cmH20): 5 cmH20 only when sleeping Rehab Therapies: physical therapy, occupational therapy, social worker aide, and recreation therapy Weight Bearing Status/Restrictions: no restriction Other Medical Equipment (for information only, NOT a DME order): none Other Treatments: n/a Patient's personal belongings (please select all that are sent with patient): none RN SIGNATURE: MANAGEMENT/SOCIAL WORK SECTION Inpatient Status Date: 08/12/2024 Discharging to Facility/ Agency Name: [facility] Address: [address] [place] [address] Fax: Dialysis Facility (if applicable) Name: Address: Dialysis Schedule: Phone: Fax: Pilot Plant Technician/[employer] Department Supervisor signature: ICIAN SECTION Name: Sandy Deng Prognosis: {Rehab Prognosis:55483} Condition at Discharge: {Patient Condition:27395} Rehab Potential (if transferring to Rehab): {Rehab Prognosis:39369} Recommended Labs or Other Treatments After Discharge: The individual is being admitted to a nursing facility directly from an [facility] or a unit of a [facility] that is not operated by or licensed by [facility] under section 5119.14 or 5160-3-15.1 5 The individual requires the level of services provided by a nursing facility for the condition for which he or she was treated in the hospital and, Physician Certification: I certify the above information and transfer of Sandy Deng is necessary for the continuing treatment of the diagnosis listed and that she requires {CHELO Level of Care:91876} for {greater less than:94214} 30 days. Update Admission H&P: {CHELO Changes in H&P:59966} PHYSICIAN SIGNATURE: {E-signature:71662} documented in this [facility]10-11-2024 NoteReturn referral placed [facility] via [facility] per TCC request. Await review and response regarding ability to accept. TCC notified. [facility]10-11-2024 [facility]10-11-2024 Procedure note* Armen Diaz MD PhD - 08/13/2024 3:02 AM EDTAssociated Order(s): EEG CONTINUOUS MONITORING Images from the original note were not included. [facility] [address] [place] [address] CONTINUOUS LONG-TERM VIDEO EEG MONITORING REPORT Patient Name: Sandy Deng : 1960 Date of Study: 08/13/2024 Duration Recorded: 12-26 hrs EEG#: [id number] PETROLEUM REFINERY WORKER: Adam Hudson PROVIDER REQUESTING STUDY: May Wang DO REASON FOR EXAM: Evaluate for seizures DIAGNOSIS TAG: Seizure NOS (Sz-NOS) HISTORY: Sandy Deng is a 63 y.o. female with history of an acute change in mental status, left downward gaze deviation, nonsymmetrical pupillary size. Patient recently admitted with septic shock secondary to polymicrobial pneumonia, subdural hematoma, admitted 07/26/2024-08/10/2024. Patient representing today and admitted to intensive care unit for acute hypoxic respiratory failure on Precedex drip due to agitation then became hypotensive BP 93/36 being weaned off and experienced acute onset of symptoms at 9:00 pm 08/12. Upon assessment of patient in CT Patient is A&O x O, and none verbal but able to follow simple commands. NIH on initial assessment was 13. Imaging obtained consisted of CT head without contrast, CT angiogram of the head and neck, CT perfusion. MEDICATIONS: Current Facility-Administered Medications Medication Dose Route Frequency Provider Last Rate Last Admin albumin human 25 % IV solution 50 g 50 g IntraVENous Once May Wang DO [Held by provider] albuterol 108 (90 Base) MCG/ACT inhaler 2 puff 2 puff Inhalation q6h PRN Ana Rosa Edie Carlin, DO [Held by provider] aspirin EC tablet 81 mg 81 mg Oral Daily Ana Rosa Edie Carlin, DO [Held by provider] atorvastatin (Lipitor) tablet 20 mg 20 mg Oral Nightly Ana Rosa Edie Carlin, DO busPIRone (Buspar) tablet 7.5 mg 7.5 mg Oral BID May Wang DO calcium gluconate 2000 mg in 100 mL IVPB premix 2,000 mg IntraVENous Once May Wang, DO 50 mL/hr at 08/13/24 0245 2,000 mg at 08/13/24 0245 [Held by provider] clopidogrel (Plavix) tablet 75 mg 75 mg Oral Daily Ana Rosa Carlin DO dextrose 5 % infusion 100 mL/hr IntraVENous PRN Ana Rosa Carlin DO dextrose 50 % solution 12.5 g 12.5 g IntraVENous PRN Ana Rosa Carlin DO [Held by provider] fluticasone (Flonase) nasal spray 2 spray 2 spray Each Nostril Daily Ana Rosa Carlin DO gabapentin (Neurontin) capsule 200 mg 200 mg Oral BID May Wang DO glucagon (human recombinant) injection 1 mg 1 mg IntraMUSCular PRN Ana Rosa Carlin DO glucose oral gel 15 g 15 g Oral PRN Ana Rosa Carlin DO [Held by provider] guaiFENesin (Robitussin) 100 MG/5ML liquid 200 mg 200 mg Oral q4h PRN Ana Rosa Carlin DO [Held by provider] heparin injection 5,000 Units 5,000 Units SubCUTAneous 2 times per day Ana Rosa Carlin DO 5,000 Units at 08/12/24 205 Insulin Lispro (Humalog) injection 0-6 Units 0-6 Units SubCUTAneous q6h Ana Rosa Carlin DO 3 Units at 08/13/24 0101 ipratropium-albuterol (Duo-Neb) 0.5-2.5 mg/3 mL nebulizer solution 3 mL 3 mL Nebulization TID Ana Rosa Carlin DO 3 mL at 08/12/24 2019 lactated ringers bolus 1,000 mL 1,000 mL IntraVENous Once May Wang DO 500 mL/hrat 08/13/24 0230 1,000 mL at 08/13/24 0230 lactated ringers bolus 500 mL 500 mL IntraVENous Once May Wang, DO 250 mL/hr at 08/13/24 0200 500 mL at 08/13/24 0200 levETIRAcetam in sodium chloride (Keppra) IVPB 500 mg 500 mg IntraVENous BID May Wang DO [Held by provider] lisinopril tablet 2.5 mg 2.5 mg Oral Daily Ana Rosakosta Pros, DO methylPREDNISolone sod suc (PF) (SOLU-Medrol) 40 MG injection 40 mg 40 mg IntraVENous q6h Ana Rosakosta Pros, DO 40 mg at 08/12/24 2317 [Held by provider] metoprolol tartrate (Lopressor) tablet 50 mg 50 mg Oral BID Ana Rosakosta Pros, DO mirtazapine (Remeron) tablet 7.5 mg 7.5 mg Oral Nightly May Wang DO [Held by provider] mometasone-formoterol (Dulera 200) 200-5 MCG/ACT inhaler 2 puff 2 puff Inhalation BID Ana Rosakosta Pros, DO mupirocin (Bactroban) 2 % ointment 1 Application 1 Application Nasal BID Ana Rosakosta Pros, DO 1 Application at 08/12/242049 ondansetron ODT (Zofran-ODT) disintegrating tablet 4 mg 4 mg Oral q8h PRN Ana Rosakosta Pros, DO Or ondansetron (Zofran) injection 4 mg 4 mg IntraVENous q6h PRN Ana Rosakosta Pros, DO QUEtiapine (SEROquel) tablet 25 mg 25 mg Oral Nightly May Wang DO 25 mg at 08/13/24 0131 sodium chloride 0.9 % infusion 250 mL/hr IntraVENous PRN April Soto MD [Held by provider] tiotropium (Spiriva Respimat) 2.5 MCG/ACT inhaler 2 puff 2 puff Inhalation DailyAna Rosa Pros, DO TECHNICAL ASPECTS: This continuous scalp EEG study with video was carried out at [facility]. Scalp electrodeswere positioned in person by an nuclear cardiology technologist, following patient education, according to the 10-20 International system of electrode placement and maintained for integrity and quality of the recording. . EEG data with video was recorded continuously and digitally stored. The nuclear cardiology technologist reviewed all automated detections and manual events and prepared the data for archiving and provider review. Referential and bipolar montages were used for review. TECHNOLOGIST NOTES: No skull or scalp defects were observed. This video-EEG monitoring was continuously monitored, 4 patients per technologist. BACKGROUND ACTIVITY: Posterior background activity: A organized, but poorly sustained 6-7 Hz, 20-35 uV rhythm was seen symmetrically over the posterior head regions bilaterally. Beta range: Diffuse beta range activity (15-25 Hz, 10-20 uV) was seen. Sleep: Fronto-centrally predominant alpha range (9-12 Hz, 10-20 uV) activity was seen reminiscent of sleep spindles. REM sleep was reached as evidenced by the appearance of sawtooth waves, low amplitude mixed faster frequencies, and complex eye movement artifacts. 05:19:32 -Spindle-like activity (AP Bipolar, LFF=1Hz, HFF=30Hz, Sens=5 uV/mm) Normal Variants: No normal variants were identified. EKG: Regular rhythm (HR~85-90 bpm) SLOWING: Continuous (greater than 90% of the recording) diffuse delta-theta range (1.5-7 Hz, 20-35 uV) gaddrmmzn-co-lqpjxfhaojtifk slow wave activity was seen unresponsive to stimulation. However, there is evidence of state change. 09:35:35 -Continuous slowing, generalized (AP Bipolar, LFF=1Hz, HFF=30Hz, Sens=5 uV/mm) INTERICTAL EPILEPTIFORM ACTIVITY: No epileptiform activity was seen. ICTAL ACTIVITY: No ictal activity was seen. NON-EPILEPTIC EVENTS: None. ACTIVATION PROCEDURES: Photic stimulation was not performed. Hyperventilation was not performed. IMPRESSION AND ACTIONS TAKEN: This continuous EEG with video is abnormal. Continuous diffuse zdzspekw-xl-qpscqf diffuse slowing is seen unresponsive to stimulation. REM sleep architecture is observed. At times, fronto-centrally predominant fast activity is observed reminiscent of sleep spindles. No interictal epileptiform activity nor seizures are observed. The findings are supportive of a manouvjh-vt-zqyfne global encephalopathy non- specific as to etiology. Will continue video-EEG monitoring to evaluate the evolution of this encephalopathy. Jasmeet Arevalo, PhD Clinical Neurophysiologist Armen Diaz MD PhD Epilepsy Attending documented in this [facility]10-10-2024 NoteSoft restraints removed at this time. Dr. Hoang made aware. Clari Bronson RN 08/12/24 1634[facility]10-10-2024 Emergency department Note* Clari Bronson RN - 08/12/2024 4:34 PM EDT Soft restraints removed at this time. Dr. Hoang made aware. Clari Bronson RN 08/12/24 163 * Margret Doan RN - 08/12/2024 4:33 PM EDT Report given to T3 RN. Margret Doan RN 08/12/241633 * Clari Bronson RN - 08/12/2024 3:16 PM EDT ICU at bedside. Clari Bronson RN 08/12/24 1517 * Lucina Galvan DO - 08/12/2024 11:35 AM EDT Emergency Department Encounter [facility] EMERGENCY DEPT Patient: Sandy Deng : 1960 Date of Evaluation: 08/12/2024 ED Supervising Physician: Lucina Galvan DO I personally evaluated Sandy Deng and made/approved the management plan and take responsibility for the patient management. This will serve as my Supervisory note and shared attestation. I did perform a substantive portion of the visit including all aspects of the Medical Decision Making. I wore appropriate PPE for the entirety of this encounter. In brief, Sandy Deng is a 63 y.o. that presents to the emergency department with altered mental status. History obtained from family at bedside. Patient was recently admitted for subdural hematoma. Patient was noted to be dizzy this morning and pulse ox was noted to be in the 80s on room air. Patient is post to be on 4 L nasal cannula at baseline. Focused exam: Constitutional: Well-developed and well-nourished. No distress. HENT: Mucous membranes moist Cardiovascular: Regular rate and rhythm. No abnormal heart sounds heard. Pulmonary/Chest: Effort normal with no conversational dyspnea. Clear to auscultation bilaterally. Abdominal: Soft. No tenderness. No distension or guarding. Musculoskeletal: No edema and no calf tenderness to palpation. Neuro: Moves all extremities. Sensation appears intact in all 4 extremities. Patient is altered. GCS E3 V4 M5. Skin: Skin is warm and dry. Brief ED course/MDM: 63-year-old female presenting with altered mental status. Differential diagnosis includes hypoglycemia versus electrolyte derangements versus UMA versus ACS versus hypercarbia. Labs were obtained and patient was placed on NIV for hypercarbic respiratory failure with CO2 of 100 and pH of 7.0. Labs notable for chronic renal insufficiency, hyperglycemia which appear to be baseline, mildly elevated troponin and markedly elevated BNP which also appears to be stable. Plan for admission to the ICU. Diagnostics interpreted by me: Xray(s) chest x-ray without focal consolidation concerning for pneumonia, mild pulmonary edema noted I personally discussed the patient's management with other clinicians: Admitting team ICU All diagnostic, treatment, and disposition decisions were made by myself in conjunction with the [facility]. For all further details of the patient's emergency department visit, please see their documentation. (Comment: Please note this report has been produced using speech recognition software and may contain errors related to that system including errors in grammar, punctuation, and spelling, as well as words and phrases that may be inappropriate. If there are any questions or concerns please feel freeto contact the dictating provider for clarification.) Lucina Galvan DO [employer] Lucina Galvan DO 08/12/24 [id number] * Sapphire Bianchi PA-C - 08/12/2024 11:35 AM EDT Emergency Department Encounter [facility] Emergency Department Patient: Sandy Deng : 1960 Date of Evaluation: 08/12/2024 ED [facility] Provider: Sapphire Bianchi PA-C EDcare was supervised by Dr. Hoang who independently examined and evaluated the patient. Please see their attestation note for further details. Chief Complaint: Chief Complaint Patient presents with Altered Mental Status Pt became dizzy this morning and SpO2 was noted to be 80s on RA. Pt was placed on 35% venti mask. Pt is altered. Awakens to voice and follows simple commands History of Present Illness: Sandy Deng is a 63 y.o. female with past medical history of ESRD on dialysis, SDH, COPD on 4LNC, type 1 diabetes who presented to the emergency department for evaluation of altered mental status, respiratory failure. Patient was recently admitted for septic shock secondary to pneumonia, andrespiratory failure. Patient was discharged to [facility] 2 days ago, and today was found to be confused, and hypoxic at 80% on room air, as patient was given 4 L nasal cannula. Per family at bedside, patient will pull at her oxygen and IV lines, patient may have pulled her oxygen off. Patient is currently awake and awakens to voice, slightly somnolent but able to answer questions. Patient states she feels much better with the oxygen on than she did prior to. States she does not feel short of breath that she did earlier today.. Patient has any chest pain, lower extremity swelling, lightheadedness or dizziness at this time Nursing notes were reviewed. Limitations to history: Outside historians: Review of Systems: Positives and pertinent negatives as per HPI. All other systems were reviewed and are acutely negative except as noted. Past History: Past Medical History: Diagnosis Date COPD (chronic obstructive pulmonary disease) (HCC) Diabetic neuropathy (HCC) Hyperlipidemia Myocardial infarct (HCC) Stage 4 chronic kidney disease (HCC) Type 1 diabetes (HCC) Past Surgical History: Procedure Laterality Date CORONARY ANGIOPLASTY WITH STENT PLACEMENT CORONARY ANGIOPLASTY WITH STENT PLACEMENT Social History Socioeconomic History Marital status: Tobacco Use Smoking status: Never Smokeless tobacco: Never Social Determinants of Health Food Insecurity: Patient Unable To Answer (08/12/2024) Hunger Vital Sign Worried About Running Out of Food in the Last Year: Patient unable to answer Ran Out of Food in the Last Year: Patient unable to answer Transportation Needs: Patient Unable To Answer (08/12/2024) PRAPARE - Transportation Lack of Transportation (Medical): Patient unable to answer Lack of Transportation (Non-Medical): Patient unable to answer Intimate Partner Violence: Patient Unable To Answer (08/12/2024) Humiliation, Afraid, Rape, and Kick questionnaire Fear of Current or Ex-Partner: Patient unable to answer Emotionally Abused: Patient unable to answer Physically Abused: Patient unable to answer Sexually Abused: Patient unable to answer Housing Stability: Patient Unable To Answer (08/12/2024) Housing Stability Vital Sign Unable to Pay for Housing in the Last Year: Patient unable to answer Homeless in the Last Year: Patient unable to answer Medications/Allergies: Current Discharge Medication List CONTINUE these medications which have NOT CHANGED Details albuterol 108 (90 Base) MCG/ACT inhaler inhale 2 puffs by mouth and INTO THE LUNGS every 6 hours ifneeded for cough aspirin 81 MG EC tablet Take 1 tablet by mouth daily. Breztri Aerosphere 160-9-4.8 MCG/ACT aerosol busPIRone (Buspar) 7.5 MG tablet Take 1 tablet by mouth 2 times daily. Cholecalciferol ([employer] Vitamin D3) 25 MCG (1000 UT) chewable tablet Chew. clopidogrel (Plavix) 75 MG tablet Take 1 tablet by mouth daily. Continuous Glucose Sensor (Dexcom G6 Sensor) [facility] Continuous Glucose Transmitter (Dexcom G6 transmitter) [facility] estradiol (Estrace) 1 MG tablet Take 1 mg by mouth in the morning. fluticasone (Flonase) 50 MCG/ACT nasal spray Administer 2 sprays into each nostril daily. Shake gently. Before first use, prime pump. After use, clean tip and replace cap. gabapentin (Neurontin) 100 MG capsule Take 2 capsules (200 mg) by mouth 2 times daily. guaiFENesin (Robitussin) 100 MG/5ML liquid Take 10 mL (200 mg) by mouth every 4 hours as needed forcough or congestion for up to 10 days. Insulin Disposable Pump (Omnipod 5 [id number] Intro Gen 5) kit Insulin Disposable Pump (Omnipod 5 [id number] Pods Gen 5) misc insulin glargine (Lantus) 100 UNIT/ML injection Inject 3 Units under the skin Nightly. ipratropium-albuterol (Duo-Neb) 0.5-2.5 mg/3 mL nebulizer solution inhale contents of 1 vial ( 3 MLS ) in nebulizer by mouth and INTO THE LUNGS every 4 hours Kerendia 10 MG tablet Take 1 tablet by mouth daily. levoFLOXacin (Levaquin) 750 MG tablet take 1 tablet by mouth every 24 hours for 7 days lisinopril 2.5 MG tablet Take 2.5 mg by mouth in the morning. metoprolol tartrate (Lopressor) 50 MG tablet Take 1 tablet (50 mg) by mouth 2 times daily. mirtazapine (Remeron) 7.5 MG tablet Take 1 tablet by mouth Nightly. nitroglycerin (Nitrostat) 0.4 MG SL tablet Prolia 60 MG/ML solution prefilled syringe simvastatin (Zocor) 40 MG tablet Take 40 mg by mouth daily. SPS 15 GM/60ML suspension TAKE 30 GRAMS BY MOUTH EVERYDAY FOR ONE DAY Trelegy Ellipta 200-62.5-25 MCG/ACT aerosol powder No Known Allergies Physical Exam: ED Triage Vitals Temp Heart Rate Resp BP -- 08/12/24 1257 08/12/24 1257 08/12/24 1257 64 20 (!) 87/30 SpO2 Temp Source Heart Rate Source Patient Position 08/12/24 1257 08/12/24 1257 -- -- 100 % Oral BP Location FiO2 (%) -- 08/12/24 1410 30 % Physical Exam Vitals and nursing note reviewed. Constitutional: General: She is not in acute distress. Appearance: She is well-developed. She is ill-appearing. HENT: Head: Normocephalic and atraumatic. Mouth/Throat: Mouth: Mucous membranes are dry. Eyes: Conjunctiva/sclera: Conjunctivae normal. Cardiovascular: Rate and Rhythm: Normal rate and regular rhythm. Heart sounds: No murmur heard. Pulmonary: Effort: Pulmonary effort is normal. No respiratory distress. Breath sounds: Rhonchi and rales present. Abdominal: Palpations: Abdomen is soft. Tenderness: There is no abdominal tenderness. Musculoskeletal: General: No swelling. Cervical back: Neck supple. Right lower leg: No edema. Left lower leg: No edema. Skin: General: Skin is warm and dry. Capillary Refill: Capillary refill takes less than 2 seconds. Neurological: Mental Status: She is alert. She is disoriented. Sensory: No sensory deficit. Motor: No weakness. Psychiatric: Mood and Affect: Mood normal. Screenings: Gregory Coma Scale Best Eye Response: To pain Best Verbal Response: Confused Best Motor Response: Withdraws to pain [place] Coma Scale Score: 10 NIH Stroke Scale 1A. Level of Consciousness: Requires Repeated Stimulation to Arouse or Responds to Pain 1B. Ask Month and Age: No Questions Right 1C. Blink Eyes & Squeeze Hands: Performs 0 Tasks 2. Best Gaze: Normal 3. Visual: No Visual Loss 4. Facial Palsy: Normal Symmetrical Movements 5A. Motor - Left Arm: Some Effort Against [place] 5B. Motor - Right Arm: Some Effort Against [place] 6A. Motor - Left Leg: Some Effort Against [place] 6B. Motor - Right Leg: Some Effort Against [place] 7. Limb Ataxia: Absent 8. Sensory Loss: Normal 9. Best Language: Severe Aphasia 10. Dysarthria: Normal 11. Extinction and Inattention: No Abnormality NIH Stroke Scale: 16 Patients symptoms are consistent with sepsis, severe sepsis, or septic shock (If yes use .sepsiscoremeasure): Diagnostics: Labs: Labs Reviewed BASIC METABOLIC PANEL - Abnormal Result Value SODIUM 132 (*) POTASSIUM 3.6 CHLORIDE 100 CARBON DIOXIDE 28 UREA NITROGEN 19 (*) CREATININE 2.38 (*) GLUCOSE 229 (*) CALCIUM 6.6 (*) ANION GAP 4 eGFR 22.3 (*) CBC WITH AUTO DIFFERENTIAL - Abnormal Auto WBC 4.8 RBC 2.78 (*) Hemoglobin 7.9 (*) Hematocrit 26.5 (*) MCV 95.3 MCH 28.4 MCHC 29.8 (*) RDW 16.5 (*) Platelets 89 (*) MPV 11.3 nRBC 0.0 Neutrophils Relative 55.6 Lymphocytes Relative 27.1 Monocytes Relative 13.4 (*) Eosinophils Relative 2.5 Basophils Relative 0.8 Immature Grans % 0.6 Neutrophils Absolute 2.7 Lymphocytes Absolute 1.3 Monocytes Absolute 0.6 Eosinophils Absolute 0.1 Basophils Absolute 0.0 Immature Grans Absolute 0.0 IPF 5 TROPONIN, WITH SERIAL REFLEX - Abnormal TROPONIN I 0.046 (*) Narrative: Patients with high levels of Biotin oral intake (ie >5 mg/day) may have falsely decreased Troponin levels. NT PRO BNP - Abnormal NT PRO BNP >30,000 (*) BLOOD GAS, VENOUS - Abnormal pH, Venous 7.093 (*) pCO2, Venous 101.8 (*) pO2, Venous 44.4 HCO3, Venous 30.4 (*) O2 Sat, Venous 74.5 Base Excess, Venous -0.7 Hgb, blood gas 9.1 TCO2, Venous 33.5 (*) Source Of Oxygen Nasal cannula Narrative: Assessment of oxygenation is best done with an arterial blood gas determination. Reference ranges for pO2, bicarbonate, and base excess are for mixed venous blood. Specimens drawn from a peripheral vein will often have higher values. Interpret with caution, pO2 value falsely increased due to vacuum in tube. For accurate results, please draw on a syringe. TROPONIN I - Abnormal TROPONIN I 0.046 (*) Narrative: Patients with high levels of Biotin oral intake (ie >5 mg/day) may have falsely decreased Troponin levels. BLOOD GAS, VENOUS - Abnormal pH, Venous 7.262 (*) pCO2, Venous 58.7 (*) pO2, Venous 73.2 HCO3, Venous 25.9 O2 Sat, Venous 94.9 Base Excess, Venous -1.4 Hgb, blood gas 7.7 TCO2, Venous 27.7 Source Of Oxygen Bi-PAP Narrative: Interpret with caution, PO2 value falsely increased due to vacuum in tube. For accurate results, please draw in a syringe. Assessment of oxygenation is best done with an arterial blood gas determination. Reference ranges for pO2, bicarbonate, and base excess are for mixed venous blood. Specimens drawn from a peripheral vein will often have higher values. TROPONIN I - Abnormal TROPONIN I 0.052 (*) Narrative: Patients with high levels of Biotin oral intake (ie >5 mg/day) may have falsely decreased Troponin levels. CBC WITH AUTO DIFFERENTIAL - Abnormal Auto WBC 3.8 RBC 2.39 (*) Hemoglobin 6.9 (*) Hematocrit 22.3 (*) MCV 93.3 MCH 28.9 MCHC 30.9 RDW 16.4 (*) Platelets 85 (*) MPV 10.6 nRBC 0.0 Neutrophils Relative 76.0 Lymphocytes Relative 14.8 (*) Monocytes Relative 5.0 Eosinophils Relative 2.9 Basophils Relative 0.8 Immature Grans % 0.5 Neutrophils Absolute 2.9 Lymphocytes Absolute 0.6 (*) Monocytes Absolute 0.2 Eosinophils Absolute 0.1 Basophils Absolute 0.0 Immature Grans Absolute 0.0 IPF 4 IRON AND TIBC - Abnormal IRON, TOTAL 71 IRON BINDING CAPACITY 158 (*) IRON SATURATION 45 BASIC METABOLIC PANEL - Abnormal SODIUM 134 (*) POTASSIUM 3.7 CHLORIDE 103 CARBON DIOXIDE 19 (*) UREA NITROGEN 18 (*) CREATININE 2.43 (*) GLUCOSE 211 (*) CALCIUM 7.1 (*) ANION GAP 11 eGFR 21.7 (*) MAGNESIUM - Abnormal MAGNESIUM 1.5 (*) HEMOGLOBIN AND HEMATOCRIT, BLOOD - Abnormal Hemoglobin 8.7 (*) Hematocrit 27.5 (*) VITAMIN B12 - Abnormal VITAMIN B12 932 (*) BLOOD GAS, VENOUS - Abnormal pH, Venous 7.279 (*) pCO2, Venous 53.4 pO2, Venous 57.8 HCO3, Venous 24.5 O2 Sat, Venous 89.0 Base Excess, Venous -2.5 Hgb, blood gas 9.6 TCO2, Venous 26.1 Source Of Oxygen 30% Oxygen Narrative: Assessment of oxygenation is best done with an arterial blood gas determination. Reference ranges for pO2, bicarbonate, and base excess are for mixed venous blood. Specimens drawn from a peripheral vein will often have higher values. COMPREHENSIVE METABOLIC PANEL - Abnormal SODIUM 130 (*) POTASSIUM 4.2 CHLORIDE 100 CARBON DIOXIDE 22 ANION GAP 7 UREA NITROGEN 20 (*) CREATININE 2.56 (*) GLUCOSE 220 (*) CALCIUM 6.9 (*) AST (SGOT) 18 ALT 13 ALKALINE PHOSPHATASE 52 ALBUMIN 2.9 (*) BILIRUBIN, TOTAL 0.9 TOTAL PROTEIN 5.2 (*) eGFR 20.4 (*) CBC WITH AUTO DIFFERENTIAL - Abnormal Auto WBC 2.5 (*) RBC 2.25 (*) Hemoglobin 6.7 (*) Hematocrit 21.0 (*) MCV 93.3 MCH 29.8 MCHC 31.9 RDW 16.1 (*) Platelets 65 (*) MPV 11.1 IPF 3 MANUAL DIFFERENTIAL (CELLAVISION) - Abnormal RBC Morphology abnormal Anisocytosis Slight (*) Microcytes Slight (*) Polychromasia Slight (*) Basophilic Stippling Slight (*) Neutrophils % 91 (*) Bands % 2 (*) Lymphocytes % 7 (*) Monocytes % 0 (*) Absolute Neutrophil Count 2.3 Bands Absolute 0.1 (*) Lymphocytes Absolute 0.2 (*) Monocytes Absolute 0.0 Neutrophils Manual 90 Lymphocytes Manual 7 Monocytes Manual 0 Eosinophils Manual Basophils Manual Bands Manual 2 Metamyelocytes Manual Myelocytes Manual Promyelocytes Manual Blasts Manual Atypical Lymphocytes Manual Unclassified Cells, Manual BLOOD GAS ARTERIAL - Abnormal pH, Arterial 7.291 (*) pCO2, Arterial 49.4 (*) pO2, Arterial 84.7 HCO3, Arterial 23.3 O2 Sat, Arterial 95.8 Base Excess, Arterial -3.2 (*) CO2 Total 24.8 Hgb, blood gas 8.3 Source Of Oxygen 30% Oxygen BETA HYDROXYBUTYRATE - Abnormal BETA HYDROXYBUTYRATE 33.80 (*) POCT GLUCOSE METER UNSOLICITED RESULTS - Abnormal Glucose 259 (*) Narrative: Performed by: [facility], [address] [place] [address] CLIA ID: [id number] POCT GLUCOSE METER UNSOLICITED RESULTS - Abnormal Glucose 252 (*) Narrative: Performed by: [facility], [address] [place] [address] CLIA ID: [id number] POCT GLUCOSE METER UNSOLICITED RESULTS - Abnormal Glucose 253 (*) Narrative: Performed by: [facility], [address] [place] [address] CLIA ID: [id number] BLOOD CULTURE - Normal Blood Culture Blood culture incubation started Narrative: Blood Collection Site: Left Antecubital BLOOD CULTURE - Normal Blood Culture Blood culture incubation started Narrative: Blood Collection Site: Right Antecubital LACTIC ACID WITH REFLEX - Normal LACTIC ACID 1.6 PHOSPHORUS - Normal PHOSPHORUS 3.0 FERRITIN - Normal FERRITIN 231 FOLATE - Normal FOLATE RESULT 10.8 LACTATE DEHYDROGENASE - Normal LACTATE DEHYDROGENASE 184 PROTIME & APTT - Normal PROTHROMBIN TIME 11.6 INR 1.0 APTT 29.6 RESPIRATORY PATHOGENS PANEL BY PCR BLOOD TYPE AND SCREEN GEL ABO Grouping O Antibody Screen NEG Rh Type POS RETICULOCYTES Retic Ct Pct 2.41 HAPTOGLOBIN HEMOGLOBIN AND HEMATOCRIT, BLOOD LACTIC ACID WITH REFLEX PREPARE RBC PRODUCT CODE [id number] Unit Number [id number] Unit ABO O Unit RH POS Crossmatch interpretation COMP Dispense Status Transfused Blood Expiration Date Product Blood Type 5100 Unit Volume 300 PREPARE RBC PRODUCT CODE [id number] Unit Number [id number] Unit ABO O Unit RH POS Crossmatch interpretation COMP Dispense Status Transfused Blood Expiration Date Product Blood Type 5100 Unit Volume 300 POCT GLUCOSE METER POCT GLUCOSE METER POCT GLUCOSE METER POCT GLUCOSE METER POCT GLUCOSE METER Radiographs: CT head wo IV contrast Final Result 1. Interval resolution of tiny right subdural hematoma. 2. Bilateral mastoiditis and left otitis media, new compared to 07/26/2024. 3. ASPECTS: [address] ANGIOGRAPHY HEAD AND NECK: Clinical Indication: Inpatient; 63-year-old female; new gaze deviation with pupil asymmetry; patient receiving dialysis tomorrow; stroke team called Scan Parameters: CT perfusion: Following non-contrast CT through the head, dynamic 4D CT angiograms of the intracranial vessels and CT Perfusion study of the whole brain were performed after IV contrast. The data setwas post processed 4D CT angiograms, 3-D shaded surface display CT angiograms, and color coded CT pe rfusion maps of cerebral blood volume, mean transit time, and cerebral blood flow. CTA head and neck: Multiple axial CT images were obtained of the head and neck after administrationof IV contrast with coronal and sagittal reconstructs. The CT angiographic studies of the extracranial vessels were post processed with MIP imaging. Measurement of carotid stenosis is a ratio based on conventional angiographic data from the NASCET trials with the smallest caliber of the internal carotid as the numerator and normal post-stenotic internal carotid caliber as denominator. Dose reduction was employed with automated exposure control. Contrast: 100 mL of Isovue-370 IV contrast Comparison: CT head 07/26/2024 Findings: CT perfusion studies: No global or regional perfusion abnormalities are noted on the TTP, MTT, CBV,or CBF maps. There is no core infarct, there is no atrophy risk territory, and there is no mismatchpenumbra. Aortic arch: The aortic arch demonstrates normal caliber. There are no significant atherosclerotic calcifications at the aortic arch. There is no stenosis at the origin of the three-vessel takeoff. Right carotid: Mild atherosclerotic calcifications are present along the common carotid artery and internal. The right internal carotid artery demonstrates minimal stenosis near the origin in the range of less than 30 percent. Patent flow extends into the intracranial circulation. Left carotid: Mild atherosclerotic calcifications are present along the common carotid artery and internal. The left internal carotid artery demonstrates minimal stenosis near the origin in the rangeof less than 30 percent. Patent flow extends into the intracranial circulation. Vertebral arteries: There is patent antegrade flow noted within the vertebral arteries. Intracranial arteries: Patent flow is identified throughout the anterior, middle and posterior cerebral arteries. No vascular malformation or aneurysm above 3 mm in caliber is identified. The regionsof the anterior and posterior communicating arteries are unremarkable. Atherosclerotic calcifications are present along the supraclinoid portion of bilateral internal carotid arteries. Neck: There is no adenopathy. The salivary glands are within normal limits. The airway is patent. The thyroid gland contour is normal. Esophagus is decompressed. The epiglottis is normal. Lung apices: There is a large right pleural effusion and a small left pleural effusion with compressive atelectasis. Severe centrilobular emphysema is present within the lung apices. Osseous structures: The osseous structures are intact. Mild endplate spurring is present along the cervical spine.. IMPRESSION: 1. Interval resolution of tiny RIGHT subdural hematoma. 2. BILATERAL mastoiditis and LEFT otitis media, new compared to 07/26/2024. 3. Perfusion exam demonstrates no acute infarct or at risk territory. 4. CTA demonstrates no large vessel occlusion. 5. Large right and small left pleural effusion with compressive atelectasis and/or infiltrate. Severe centrilobular emphysema. CRITICAL TEST COMMUNICATION: Dr. Nuñez was notified by telephone today at 11:01pm. Report Dictated on Electronically Signed By: Otilia Wiley MD Electronically Signed Date/Time: 08/12/2024 11:12 PM EDT CTA head neck angio w and wo IV contrast Final Result 1. Interval resolution of tiny right subdural hematoma. 2. Bilateral mastoiditis and left otitis media, new compared to 07/26/2024. 3. ASPECTS: [address] ANGIOGRAPHY HEAD AND NECK: Clinical Indication: Inpatient; 63-year-old female; new gaze deviation with pupil asymmetry; patient receiving dialysis tomorrow; stroke team called Scan Parameters: CT perfusion: Following non-contrast CT through the head, dynamic 4D CT angiograms of the intracranial vessels and CT Perfusion study of the whole brain were performed after IV contrast. The data setwas post processed 4D CT angiograms, 3-D shaded surface display CT angiograms, and color coded CT pe rfusion maps of cerebral blood volume, mean transit time, and cerebral blood flow. CTA head and neck: Multiple axial CT images were obtained of the head and neck after administrationof IV contrast with coronal and sagittal reconstructs. The CT angiographic studies of the extracranial vessels were post processed with MIP imaging. Measurement of carotid stenosis is a ratio based on conventional angiographic data from the NASCET trials with the smallest caliber of the internal carotid as the numerator and normal post-stenotic internal carotid caliber as denominator. Dose reduction was employed with automated exposure control. Contrast: 100 mL of Isovue-370 IV contrast Comparison: CT head 07/26/2024 Findings: CT perfusion studies: No global or regional perfusion abnormalities are noted on the TTP, MTT, CBV,or CBF maps. There is no core infarct, there is no atrophy risk territory, and there is no mismatchpenumbra. Aortic arch: The aortic arch demonstrates normal caliber. There are no significant atherosclerotic calcifications at the aortic arch. There is no stenosis at the origin of the three-vessel takeoff. Right carotid: Mild atherosclerotic calcifications are present along the common carotid artery and internal. The right internal carotid artery demonstrates minimal stenosis near the origin in the range of less than 30 percent. Patent flow extends into the intracranial circulation. Left carotid: Mild atherosclerotic calcifications are present along the common carotid artery and internal. The left internal carotid artery demonstrates minimal stenosis near the origin in the rangeof less than 30 percent. Patent flow extends into the intracranial circulation. Vertebral arteries: There is patent antegrade flow noted within the vertebral arteries. Intracranial arteries: Patent flow is identified throughout the anterior, middle and posterior cerebral arteries. No vascular malformation or aneurysm above 3 mm in caliber is identified. The regionsof the anterior and posterior communicating arteries are unremarkable. Atherosclerotic calcifications are present along the supraclinoid portion of bilateral internal carotid arteries. Neck: There is no adenopathy. The salivary glands are within normal limits. The airway is patent. The thyroid gland contour is normal. Esophagus is decompressed. The epiglottis is normal. Lung apices: There is a large right pleural effusion and a small left pleural effusion with compressive atelectasis. Severe centrilobular emphysema is present within the lung apices. Osseous structures: The osseous structures are intact. Mild endplate spurring is present along the cervical spine.. IMPRESSION: 1. Interval resolution of tiny RIGHT subdural hematoma. 2. BILATERAL mastoiditis and LEFT otitis media, new compared to 07/26/2024. 3. Perfusion exam demonstrates no acute infarct or at risk territory. 4. CTA demonstrates no large vessel occlusion. 5. Large right and small left pleural effusion with compressive atelectasis and/or infiltrate. Severe centrilobular emphysema. CRITICAL TEST COMMUNICATION: Dr. Nuñez was notified by telephone today at 11:01pm. Report Dictated on Electronically Signed By: Otilia Wiley MD Electronically Signed Date/Time: 08/12/2024 11:[address] PERFUSION Final Result 1. Interval resolution of tiny right subdural hematoma. 2. Bilateral mastoiditis and left otitis media, new compared to 07/26/2024. 3. ASPECTS: [address] ANGIOGRAPHY HEAD AND NECK: Clinical Indication: Inpatient; 63-year-old female; new gaze deviation with pupil asymmetry; patient receiving dialysis tomorrow; stroke team called Scan Parameters: CT perfusion: Following non-contrast CT through the head, dynamic 4D CT angiograms of the intracranial vessels and CT Perfusion study of the whole brain were performed after IV contrast. The data setwas post processed 4D CT angiograms, 3-D shaded surface display CT angiograms, and color coded CT pe rfusion maps of cerebral blood volume, mean transit time, and cerebral blood flow. CTA head and neck: Multiple axial CT images were obtained of the head and neck after administrationof IV contrast with coronal and sagittal reconstructs. The CT angiographic studies of the extracranial vessels were post processed with MIP imaging. Measurement of carotid stenosis is a ratio based on conventional angiographic data from the NASCET trials with the smallest caliber of the internal carotid as the numerator and normal post-stenotic internal carotid caliber as denominator. Dose reduction was employed with automated exposure control. Contrast: 100 mL of Isovue-370 IV contrast Comparison: CT head 07/26/2024 Findings: CT perfusion studies: No global or regional perfusion abnormalities are noted on the TTP, MTT, CBV,or CBF maps. There is no core infarct, there is no atrophy risk territory, and there is no mismatchpenumbra. Aortic arch: The aortic arch demonstrates normal caliber. There are no significant atherosclerotic calcifications at the aortic arch. There is no stenosis at the origin of the three-vessel takeoff. Right carotid: Mild atherosclerotic calcifications are present along the common carotid artery and internal. The right internal carotid artery demonstrates minimal stenosis near the origin in the range of less than 30 percent. Patent flow extends into the intracranial circulation. Left carotid: Mild atherosclerotic calcifications are present along the common carotid artery and internal. The left internal carotid artery demonstrates minimal stenosis near the origin in the rangeof less than 30 percent. Patent flow extends into the intracranial circulation. Vertebral arteries: There is patent antegrade flow noted within the vertebral arteries. Intracranial arteries: Patent flow is identified throughout the anterior, middle and posterior cerebral arteries. No vascular malformation or aneurysm above 3 mm in caliber is identified. The regionsof the anterior and posterior communicating arteries are unremarkable. Atherosclerotic calcifications are present along the supraclinoid portion of bilateral internal carotid arteries. Neck: There is no adenopathy. The salivary glands are within normal limits. The airway is patent. The thyroid gland contour is normal. Esophagus is decompressed. The epiglottis is normal. Lung apices: There is a large right pleural effusion and a small left pleural effusion with compressive atelectasis. Severe centrilobular emphysema is present within the lung apices. Osseous structures: The osseous structures are intact. Mild endplate spurring is present along the cervical spine.. IMPRESSION: 1. Interval resolution of tiny RIGHT subdural hematoma. 2. BILATERAL mastoiditis and LEFT otitis media, new compared to 07/26/2024. 3. Perfusion exam demonstrates no acute infarct or at risk territory. 4. CTA demonstrates no large vessel occlusion. 5. Large right and small left pleural effusion with compressive atelectasis and/or infiltrate. Severe centrilobular emphysema. CRITICAL TEST COMMUNICATION: Dr. Nuñez was notified by telephone today at 11:01pm. Report Dictated on Electronically Signed By: Otilia Wiley MD Electronically Signed Date/Time: 08/12/2024 11:12 PM EDT XR chest 1 view Final Result Suspect mild pulmonary edema with small pleural effusions. Report Dictated on Electronically Signed By: Kami Brown MD Electronically Signed Date/Time: 08/12/2024 1:13 PM EDT Procedures: Procedures EKG: All EKG's are interpreted by the Emergency Department Physician in the absence of a boat hoist operator. Please see Epiphany for interpretation of EKG. Emergency Department Course and Medical Decision Making In brief, Sandy Deng is a 63 y.o. female who presented to the emergency department for evaluation of altered mental status, respiratory failure. Physical exam as above, patient nontoxic in appearance. Vital signs upon arrival show the patient is hypotensive at 87/30, SpO2 is 100% on 6 L nasal cannula External records reviewed: Screening labs were obtained, patient has been oxygenating well on 6 L nasal cannula, SpO2 is 98 to100%. VBG resulted with a pH of 7.093 and a pCO2 of 101.8. Respiratory therapy was called and patient was placed on BiPAP. Initially sepsis orders were initiated due to patient's hypotension, and previous septic shock. Lactic acid is normal, patient's anemia is stable and there is no leukocytosis. BMP shows chronic kidney disease. BNP is elevated, but this appears to be baseline as well. Troponinis 0.046. Chest x-ray independently interpreted by myself as well as the radiologist showed mild pulmonary edema, small pleural effusions, improved from previous Reevaluation: 1430: Patient is a pressure is improving, maps are above 65. Patient's mental status is also improving but patient is still pulling at her IV lines and her BiPAP. Per at bedsidehe states that patient will continue to pull, for patient's safety, patient was placed in soft restraints by the nurse. ICU was consulted for hypercarbic respiratory failure, patient was admitted to the ICU. MDM elements: Diagnostic tests considered but not performed: Diagnostics interpreted by me: Discussions with other clinicians: Chronic conditions impacting care: Social determinants of health affecting care: . ED Medications managed: Medications ipratropium-albuterol (Duo-Neb) 0.5-2.5 mg/3 mL nebulizer solution 3 mL (3 mL Nebulization Given 08/12/242018) methylPREDNISolone sod suc (PF) (SOLU-Medrol) 40 MG injection 40 mg (40 mg IntraVENous Given 08/13/24 891) albuterol 108 (90 Base) MCG/ACT inhaler 2 puff ( Inhalation Held by provider 08/12/24 4120) aspirin EC tablet 81 mg ( Oral Dose Auto Held 08/20/24 09) busPIRone (Buspar) tablet 7.5 mg ( Oral Unheld by provider 08/13/24126) clopidogrel (Plavix) tablet 75 mg ( Oral Dose Auto Held 08/20/24899) fluticasone (Flonase) nasal spray 2 spray ( Each Nostril Dose Auto Held 08/20/24899) gabapentin (Neurontin) capsule 200 mg ( Oral Unheld by provider 08/13/24126) guaiFENesin (Robitussin) 100 MG/5ML liquid 200 mg ( Oral Held by provider 08/12/24 180) Insulin Lispro (Humalog) injection 0-6 Units (3 Units SubCUTAneous Given 08/13/24 05) glucose oral gel 15 g (has no administration in time range) dextrose 50 % solution 12.5 g (has no administration in time range) glucagon (human recombinant) injection 1 mg (has no administration in time range) dextrose 5 % infusion (has no administration in time range) lisinopril tablet 2.5 mg ( Oral Dose Auto Held 08/20/24 0800) metoprolol tartrate (Lopressor) tablet 50 mg ( Oral Dose Auto Held 08/20/242099) mirtazapine (Remeron) tablet 7.5 mg ( Oral Unheld by provider 08/13/24 012) atorvastatin (Lipitor) tablet 20 mg ( Oral Dose Auto Held 08/20/242099) mometasone-formoterol (Dulera 200) 200-5 MCG/ACT inhaler 2 puff ( Inhalation Dose Auto Held 08/20/241999) tiotropium (Spiriva Respimat) 2.5 MCG/ACT inhaler 2 puff ( Inhalation Dose Auto Held 08/20/24 0900) mupirocin (Bactroban) 2 % ointment 1 Application (1 Application Nasal Given 08/12/242049) ondansetron ODT (Zofran-ODT) disintegrating tablet 4 mg (has no administration in time range) Or ondansetron (Zofran) injection 4 mg (has no administration in time range) heparin injection 5,000 Units ( SubCUTAneous Dose Auto Held 08/20/242099) sodium chloride 0.9 % infusion (has no administration in time range) QUEtiapine (SEROquel) tablet 25 mg (25 mg Oral Given 08/13/24 0131) levETIRAcetam (Keppra) 250 mg in sodium chloride 0.9 % 100 mL IVPB (has no administration in time range) magnesium sulfate IVPB premix 2,000 mg (2,000 mg IntraVENous New Bag 08/13/24 0637) piperacillin-tazobactam (Zosyn) IVPB 4.5 g (0 g IntraVENous Stopped 08/12/24 1606) lactated ringers bolus 1,716 mL (0 mL IntraVENous Stopped 08/12/24 1530) iopamidol (Isovue-370) 76 % injection 100 mL (100 mL IntraVENous Given 08/12/24 2252) LORazepam (Ativan) injection 1 mg (1 mg IntraVENous Given 08/13/24 0131) lactated ringers bolus 500 mL (0 mL IntraVENous Stopped 08/13/24 0400) lactated ringers bolus 1,000 mL (0 mL IntraVENous Stopped 08/13/24 0430) calcium gluconate 2000 mg in 100 mL IVPB premix (0 mg IntraVENous Stopped 08/13/24 0445) albumin human 25 % IV solution 50 g (0 g IntraVENous Stopped 08/13/24 0409) levETIRAcetam in sodium chloride (Keppra) IVPB 500 mg (0 mg IntraVENous Stopped 08/13/24 0512) Prescription drugs considered: Critical Care: Total critical care time today provided was at least 45 minutes. This excludes seperately billable procedure. Critical care time provided for hypotension, hypercapnic respiratory failure that required close evaluation and/or intervention with concern for patient decompensation. Consults: IP WOUND CARE NURSE CONSULT TO EVAL IP CONSULT TO NEPHROLOGY FINAL IMPRESSION 1. Hypercapnic respiratory failure (HCC) DISPOSITION: Admit 08/12/2024 03:58:39 PM PATIENT REFERRED TO: No follow-up provider specified. DISCHARGE MEDICATIONS: Current Discharge Medication List Sapphire Bianchi PA-C [employer] Sapphire Bianchi PA-C 08/13/2412 Cosigned by Lucina Galvan DO at 08/13/2024 2:40 PM EDT * Yassine Montero DO - 08/12/2024 11:35 AM EDT Emergency Department Encounter Location: [facility] Patient: Sandy Deng : 1960 Date of evaluation: 08/12/2024 ED Provider: Yassine Montero DO Time received sign-out: 1520 Sandy Deng was checked out to me by Sapphire Bianchi PA-C. Please see his/her initial documentation for details of the patient's initial ED presentation, physical exam and completed studies. In brief, Sandy Deng is a 63 y.o. adult that presented to the emergency department with altered mental status and respiratory failure. She was discharged to [facility] 2 days ago after beingadmitted for septic pneumonia and respiratory failure. She was today found to be confused and hypoxic 80% on room air when she was on 4 L nasal cannula. BG significant for significant respiratory acidosis with a pH of 7.09 and a pCO2 of 101. Pending ICU evaluation. I have reviewed and interpreted all of the currently available lab results and diagnostics from this visit: Results for orders placed or performed during the hospital encounter of 08/12/24 Blood culture Site #1 - Suspected Infection Specimen: Blood, Venous Result Value Ref Range Blood Culture Blood culture incubation started Basic metabolic panel Result Value Ref Range SODIUM 132 (L) 135 - 145 mmol/L POTASSIUM 3.6 3.5 - 5.1 mmol/L CHLORIDE 100 98 - 107 mmol/L CARBON DIOXIDE 28 22 - 30 mmol/L UREA NITROGEN 19 (H) 7 - 17 mg/dL CREATININE 2.38 (H) 0.52 - 1.04 mg/dL GLUCOSE 229 (H) 70 - 100 mg/dL CALCIUM 6.6 (L) 8.4 - 10.4 mg/dL ANION GAP 4 3 - 13 mmol/L eGFR 22.3 (L) >60.0 mL/min/1.73m*2 CBC auto differential Result Value Ref Range Auto WBC 4.8 3.6 - 10.7 10*3/uL RBC 2.78 (L) 3.80 - 5.20 10*6/uL Hemoglobin 7.9 (L) 11.7 - 16.0 g/dL Hematocrit 26.5 (L) 35.0 - 47.0 % MCV 95.3 77.0 - 99.0 fL MCH 28.4 26.0 - 34.0 pg MCHC 29.8 (L) 30.5 - 36.0 % RDW 16.5 (H) 11.5 - 15.0 % Platelets 89 (L) 140 - 440 10*3/uL MPV 11.3 9.0 - 12.7 fL nRBC 0.0 0.0 - 2.0 /100 WBCs Neutrophils Relative 55.6 38.0 - 82.0 % Lymphocytes Relative 27.1 15.0 - 45.0 % Monocytes Relative 13.4 (H) 5.0 - 13.0 % Eosinophils Relative 2.5 0.0 - 6.0 % Basophils Relative 0.8 0.0 - 2.0 % Immature Grans % 0.6 0.0 - 2.0 % Neutrophils Absolute 2.7 1.8 - 7.5 10*3/uL Lymphocytes Absolute 1.3 1.0 - 4.3 10*3/uL Monocytes Absolute 0.6 0.0 - 0.9 10*3/uL Eosinophils Absolute 0.1 0.0 - 0.5 10*3/uL Basophils Absolute 0.0 0.0 - 0.2 10*3/uL Immature Grans Absolute 0.0 <0.1 10*3/uL IPF 5 Troponin, with Serial Reflex Result Value Ref Range TROPONIN I 0.046 (H) <0.034 ng/mL NT PRO BNP Result Value Ref Range NT PRO BNP >30,000 (H) <125 pg/mL Blood gas, venous ([facility] and [facility]) Result Value Ref Range pH, Venous 7.093 (L) 7.330 - 7.430 pCO2, Venous 101.8 (H) 40.0 - 55.0 mm Hg pO2, Venous 44.4 mm Hg HCO3, Venous 30.4 (H) 23.0 - 27.0 mmol/L O2 Sat, Venous 74.5 % Base Excess, Venous -0.7 -3.0 - 3.0 mmol/L Hgb, blood gas 9.1 Screen only g/dl TCO2, Venous 33.5 (H) 24.0 - 28.0 mmol/L Source Of Oxygen Nasal cannula Lactic acid with reflex Result Value Ref Range LACTIC ACID 1.6 0.7 - 2.0 mmol/L ECG 12 lead Result Value Ref Range Heart Rate 61 bpm QRSD Interval 96 ms QT Interval 445 ms QTC Interval 450 ms P [place] 76 degrees QRS [place] -24 degrees T Wave [place] 51 degrees [place] Interval 162 ms XR chest 1 view Final Result Suspect mild pulmonary edema with small pleural effusions. Report Dictated on Electronically Signed By: Kami Brown MD Electronically Signed Date/Time: 08/12/2024 1:13 PM EDT Final ED Course and MDM: Sandy Deng is a 63 y.o. whose care was signed out to me by the outgoing provider. In brief,63 y.o. adult that presented to the emergency department with altered mental status and respiratoryfailure. She was discharged to [facility] 2 days ago after being admitted for septic pneumonia andrespiratory failure. She was today found to be confused and hypoxic 80% on room air when she was on4 L nasal cannula. BG significant for significant respiratory acidosis with a pH of 7.09 and a pCO2of 101. Pt will be admitted to ICU for further evaluation and management. Medications vancomycin IVPB 1500 mg in 250 mL NS (premix) (has no administration in time range) ipratropium-albuterol (Duo-Neb) 0.5-2.5 mg/3 mL nebulizer solution 3 mL (has no administration in time range) piperacillin-tazobactam (Zosyn) IVPB 4.5 g (4.5 g IntraVENous New Bag 08/12/24 1536) lactated ringers bolus 1,716 mL (0 mL IntraVENous Stopped 08/12/24 1530) Final Impression 1. Hypercapnic respiratory failure (HCC) DISPOSITION Admit 08/12/2024 03:58:39 PM (Please note that portions of this note may have been completed with a voice recognition program. Efforts were made to edit the dictations but occasionally words are mis-transcribed.) Yassine Montero DO [employer] Yassine Montero DO Resident 08/12/24 1611 Cosigned by Lucina Galvan DO at 08/12/2024 5:46 PM EDT documented in this [facility]10-10-2024 History and physical note* Ana Rosa Carlin DO - 08/12/2024 3:20 PM EDT Images from the original note were not included. Internal Medicine: MICU Initial History and Physical Name: Sandy Deng : 1960(63 y.o.) Date: 08/12/24 Attending: Dr. Tyler Subjective: Chief Complaint: Hypercapnic respiratory failure requiring NIV HPI: Sandy Deng is a 63-year-old female with past medical history significant for COPD on 4L NC at baseline, ESRD on HD, T1DM, and recent admission to ICU for septic shock and subdural hematomawho presents to the ED today in respiratory distress. Patient had been recently discharged 2 days ago to [facility], and today was found altered, nasal cannula taken off, and pulse ox at 80%. In theED patient's mental status was improving on nonrebreather but VBG revealed pH of 7.09, with pCO2 at101. Patient was placed on NIV and ICU was consulted. On evaluation, patient is in soft restraints due to repeated attempts to remove mask while altered,but had regained orientation and was amenable to NIV mask as long as it is removed as soon as I donot need it. Patient's blood pressure had stabilized to 110s/50s, pulse ox at 100%. Patient reports feeling difficulty breathing for the last day or so, but denies any fevers, chills, cough, chest pa in, nausea or vomiting, or changes in bowel movements. Labs significant for no leukocytosis, proBNPgreater than 30,000, negative lactic acid. CXR demonstrates mild pulmonary edema with small pleuraleffusions, looks significantly improved from last admission. Patient was admitted to ICU for further management of hypercapnic respiratory failure. Past Medical History: Diagnosis Date COPD (chronic obstructive pulmonary disease) (HCC) Diabetic neuropathy (HCC) Hyperlipidemia Myocardial infarct (HCC) Stage 4 chronic kidney disease (HCC) Type 1 diabetes (HCC) Past Surgical History: Procedure Laterality Date CORONARY ANGIOPLASTY WITH STENT PLACEMENT CORONARY ANGIOPLASTY WITH STENT PLACEMENT No family history on file. Social History Socioeconomic History Marital status: Spouse name: Not on file Number of children: Not on file Years of education: Not on file Highest education level: Not on file Occupational History Not on file Tobacco Use Smoking status: Never Smokeless tobacco: Never Substance and Sexual Activity Alcohol use: Not on file Drug use: Not on file Sexual activity: Not on file Other Topics Concern Not on file Social History Narrative Not on file Social Determinants of Health Financial Resource Strain: Not on file Food Insecurity: Patient Unable To Answer (08/12/2024) Hunger Vital Sign Worried About Running Out of Food in the Last Year: Patient unable to answer Ran Out of Food in the Last Year: Patient unable to answer Transportation Needs: Patient Unable To Answer (08/12/2024) PRAPARE - Transportation Lack of Transportation (Medical): Patient unable to answer Lack of Transportation (Non-Medical): Patient unable to answer Physical Activity: Not on file Stress: Not on file Social Connections: Not on file Intimate Partner Violence: Patient Unable To Answer (08/12/2024) Humiliation, Afraid, Rape, and Kick questionnaire Fear of Current or Ex-Partner: Patient unable to answer Emotionally Abused: Patient unable to answer Physically Abused: Patient unable to answer Sexually Abused: Patient unable to answer Housing Stability: Patient Unable To Answer (08/12/2024) Housing Stability Vital Sign Unable to Pay for Housing in the Last Year: Patient unable to answer Number of Times Moved in the Last Year: Not on file Homeless in the Last Year: Patient unable to answer No Known Allergies Prior to Admission medications Medication Sig Start Date End Date Taking? Authorizing Provider albuterol 108 (90 Base) MCG/ACT inhaler inhale 2 puffs by mouth and INTO THE LUNGS every 6 hours ifneeded for cough Historical Provider, aspirin 81 MG EC tablet Take 1 tablet by mouth daily. Historical Provider, MD Mccullough Aerosphere 160-9-4.8 MCG/ACT aerosol 07/20/24 Historical Provider, busPIRone (Buspar) 7.5 MG tablet Take 1 tablet by mouth 2 times daily. Historical Provider, Cholecalciferol ([facility] Vitamin D3) 25 MCG (1000 UT) chewable tablet Chew. Historical Provider, clopidogrel (Plavix) 75 MG tablet Take 1 tablet by mouth daily. Historical Provider, Continuous Glucose Sensor (Dexcom G6 Sensor) [facility] [place] 07/22/24 Historical Provider, Continuous Glucose Transmitter (Dexcom G6 transmitter) [facility] [place] 07/25/24 Historical Provider, estradiol (Estrace) 1 MG tablet Take 1 mg by mouth in the morning. Historical Provider, fluticasone (Flonase) 50 MCG/ACT nasal spray Administer 2 sprays into each nostril daily. Shake gently. Before first use, prime pump. After use, clean tip and replace cap. 08/10/24 08/10/25 Khai Espana DO gabapentin (Neurontin) 100 MG capsule Take 2 capsules (200 mg) by mouth 2 times daily. 08/10/24 08/10/25 Kahi Espana DO guaiFENesin (Robitussin) 100 MG/5ML liquid Take 10 mL (200 mg) by mouth every 4 hours as needed forcough or congestion for up to 10 days. 08/10/24 08/20/24 Khai Espana DO Insulin Disposable Pump (Omnipod 5 [id number] Intro Gen 5) kit 12/03/23 Historical Provider, Insulin Disposable Pump (Omnipod 5 [id number] Pods Gen 5) misc 07/15/24 Historical Provider, insulin glargine (Lantus) 100 UNIT/ML injection Inject 3 Units under the skin Nightly. 08/10/24 Jenae Espana DO ipratropium-albuterol (Duo-Neb) 0.5-2.5 mg/3 mL nebulizer solution inhale contents of 1 vial ( 3 MLS ) in nebulizer by mouth and INTO THE LUNGS every 4 hours 10/29/23 Historical Provider, Kerendjoselyn 10 MG tablet Take 1 tablet by mouth daily. 10/22/23 Historical Provider, levoFLOXacin (Levaquin) 750 MG tablet take 1 tablet by mouth every 24 hours for 7 days 11/04/23 Historical Provider, lisinopril 2.5 MG tablet Take 2.5 mg by mouth in the morning. Historical Provider, metoprolol tartrate (Lopressor) 50 MG tablet Take 1 tablet (50 mg) by mouth 2 times daily. 08/10/24 Khai Espana DO mirtazapine (Remeron) 7.5 MG tablet Take 1 tablet by mouth Nightly. Historical Provider, nitrofurantoin, macrocrystal-monohydrate, (Macrobid) 100 MG capsule Take 1 capsule (100 mg) by mouth 2 times daily for 3 doses. 08/10/24 08/12/24 Khai Espana DO nitroglycerin (Nitrostat) 0.4 MG SL tablet 07/15/24 Historical Provider, Prolia 60 MG/ML solution prefilled syringe Historical Provider, simvastatin (Zocor) 40 MG tablet Take 40 mg by mouth daily. 07/14/24 Historical Provider, SPS 15 GM/60ML suspension TAKE 30 GRAMS BY MOUTH EVERYDAY FOR ONE DAY Historical Provider, MD Zuluaga Ellipta 200-62.5-25 MCG/ACT aerosol powder 05/12/24 Historical Provider, gabapentin (Neurontin) 800 MG tablet 400 mg noon 800 mg at night 08/10/24 Historical Provider, HumaLOG KWIKPEN 100 UNIT/ML pen injection Inject 12 units 3 times a day by subcutaneous route. 08/10/24 Historical Provider, metoprolol tartrate (Lopressor) 50 MG tablet Take 1 tablet by mouth 2 times daily. 08/10/24 Historical Provider, Objective: Oxygen Delivery: VITALS: BP (!) 116/47 Pulse 68 Temp (!) 35.8 C (96.5 F) (Temporal) Resp 19 Ht 5' 6 (1.676 m) Wt 126 lb 12.2 oz (57.5 kg) SpO2 100% BMI 20.46 kg/m CURRENT PULSE OXIMETRY: SpO2: 100 % Review of Systems Constitutional: General Appearance []WDWN []Obese []Cachectic [x]Thin []Ill Eyes: Inspection of Pupils/Irises Pupils round and react: [x]Yes []No Sclera: []Icteric [x]Non-Icteric Inspection of Conjunctiva/Lids Conjunctiva: []Injected [x]Non-Injected Lids: [x]Intact []Lesion Present ENT/Mouth: External Inspection of ears/nose [x] Normal [] Scar/Lesion/Mass Inspection of teeth/lips/gums Dentition: [][place] Teeth []Dentures Lips/Gums: []Intact []Lesion Present Mucosa: [][place] []Moist []Dry Neck: External Appearance Overall Appearance: [x]Normal []Lesion/Mass/Crepitus Present Trachea midline: [x]Yes []No Thyroid []Normal []Enlarged []Tender []Mass []Absent Respiratory: Respiratory effort [x]Labored []Non-Labored [] Mechanically-Ventilated Auscultation []Clear [x]Crackles []Wheezes [][place]hon[place] Cardiovascular: Auscultation Rate: [x]Regular []Irregular []Tachycardia []Bradycardia Rhythm: [x]Regular []Irregular Murmur: []Present []Absent Extremities Peripheral Edema: []Present []Absent Varicosities: []Present []Absent Gastrointestinal: Abdomen Palpation: [x]Soft []Firm []Tender [x]Non-Tender []Distended [x]Non-distended Mass: []Present []Absent Bowel Sounds: []Present []Absent Hernia: []Present []Absent Liver/Spleen: []Hepatosplenomegaly []Organomegaly Absent Musculoskeletal: Inspection of Digits and Nails Cyanosis: []Present [x]Absent Clubbing: []Present [x]Absent Ischemia: []Present [x]Absent Infection: []Present [x]Absent Extremities ROCHE Equally: Except ([]RUE []RLE []LUE []LLE) Strength/Tone: Intact and Normal ([]RUE []RLE []LUE []LLE) Skin: Inspection [x]Normal []Rash []Lesion []Ulcer Palpation [x]Warm []Cool []Dry []Clammy []Nodules []Induration []Skin-tightening Cap-Refill: [] <3 sec [] >3 seconds (delayed) Neurologic: GCS EYE: 4 - Opens spontaneously GCS MOTOR: 6 - Obeys commands for movement GCS VERBAL: 5 - Oriented to person, place, time Total GCS: 15 [] Sensation grossly intact Psych: Mental Status Alert: [x]Yes [] No Oriented: []x0 []X1 []X2 [x]x3 Mood/Affect []Normal []Flat []Agitated []Depressed [x]Anxious []Calm []Sedated []NAD [facility] Labs within last 24 hours- BMP: Recent Labs 08/10/24 0035 08/11/24 0600 08/12/24 1337 NA 138 133* 132* K 4.2 4.6 3.6 CL 102 98 100 CO2 33* 23 28 BUN 25* 25* 19* CREATININE 2.85* 2.31* 2.38* CALCIUM 6.6* 6.7* 6.6* MG 1.8 -- -- PHOS 4.5 -- -- LFTs: No results for input(s): AST, ALT, PROT, ALBUMIN, BILITOT, BILIRUBINU, ALKPHOS,LIPASE in the last 72 hours. Glucose: Recent Labs 08/09/24200408/24 0035 08/10/24 0727 08/10/24 0735 08/10/24 0824 08/10/24 0911 08/10/24 1005 08/10/24 1126 08/10/24 1318 08/11/24 0600 08/12/24 1337 GLUCOSE -- 110* -- 61* -- -- -- -- -- 360* 229* POCGLU 164* -- 65* -- 103* 96 102* 109* 119* -- -- Procal: No results for input(s): PROCAL in the last 72 hours. CBC: Recent Labs 08/11/24 0600 08/12/24 0600 08/12/24 1337 08/12/24 1604 WBC 4.6 4.3 4.8 -- HGB 7.9* 7.2* 9.1 7.9* 7.7 HCT 28.4* 23.9* 26.5* -- PLT 102* 95* 89* -- MCV 104.4* 94.5 95.3 -- RDW 17.0* 16.6* 16.5* -- ABGs: Recent Labs 08/12/24 1337 08/12/24 1604 [id number] Nasal cannula Bi-PAP Lactic Acid: Recent Labs 08/12/24 1337 LACTATE 1.6 INR: No results for input(s): INR in the last 72 hours. Cardiac Injury Profile: Recent Labs 08/12/24 1337 08/12/24 1604 TROPONINI 0.046* 0.046* Labs in Last 3 months: Lab Results Component Value Date TSH 3.472 07/26/2024 Microbiology- Urine Cx: Lab Results Component Value Date URINECX Culture in progress 08/09/2024 URINECX >100,000 CFU/mL Abbi albicans (A) 08/09/2024 Blood Cx: Lab Results Component Value Date BLOODCX Blood culture incubation started 08/12/2024 Sputum Cx: Lab Results Component Value Date RESPCULT Rare respiratory keven present. 07/27/2024 RESPCULT Few Staphylococcus aureus (A) 07/27/2024 Gram Stain: Lab Results Component Value Date LABGRAM (A) 07/27/2024 Many Polymorphonuclear leukocytes per low power field LABGRAM Few Epithelial cells per low power field (A) 07/27/2024 LABGRAM Moderate Gram positive cocci (A) 07/27/2024 PNA PCR: Lab Results Component Value Date HUMANMETAPNE Not Detected 08/07/2024 COVID19: No results found for: COVID19 Legionella Ag: Lab Results Component Value Date LEGIONELLAPN Not Detected 07/27/2024 Strep Ag: No results for input(s): STREPPNEUMO in the last 72 hours. Imaging- CXR Impression: Suspect mild pulmonary edema with small pleural effusions. Assessment and Plan: Principal Problem: Hypercapnic respiratory failure (HCC) Assessment: Hypercapnic and hypoxic respiratory failure AECOPD Chronic respiratory failure on 4L NC at home ESRD on HD T1DM Hx of subdural hematoma and recent ICU stay Confirmed FULL CODE STATUS Plan: Admit to ICU Continue NIV therapy Solu-Medrol 40 every 6 hours for today, with plan for transition to 40 mg daily tomorrow Repeat VBG to reassess Low concern for continuing PNA given lack of symptoms, leukocytosis, imaging findings. Consult nephrology for hemodialysis management Low-dose sliding scale insulin for T1DM Hypoglycemia protocol in place Suspect given rapid improvement, patient may be stable for GMF tomorrow GI Prophylaxis: NA DVT Prophylaxis: Heparin subcutaneous BMI Classification: Body mass index is 20.46 kg/m . normal BMI 18.5-24.9 Disposition: Transfer to ICU Cosigned by Elizabeth Tyler MD at 08/12/2024 6:47 PM EDT Associated attestation - Elizabeth Tyler MD - 08/12/2024 6:47 PM EDT I have personally performed a tful-ye-dwgt diagnostic evaluation on this patient on date of mtelgan54/10/24. History, labs, imaging studies, and electronic medical record have been reviewed by me. This note documented by the [x]warehouse incentive selector []TONJA reflects my history, exam, and medical decision making. I have reviewed and agree with the care plan. Changes were made in the orders as necessary. ROS documentation was reviewed and negative unless otherwise stated in HPI. Additional pertinent interval history, ROS, and physical exam findings: Brought to ED from rehab after found down, hypoxic off O2, confused. Severe hypercapnia noted. Remains severely SOB, although less labored on NIV History of ESRD on dialysis. Prior hospitalization records reviewed. Assessment and Plan: Acute on chronic hypoxic and hypercarbic respiratory failure- unclear direct cause although clinically appears to have AECOPD. ?Viral etiology ?some degree of volume overload. Check Respiratory PCR swab. Continue NIV. Serial ABGs. OK to trial off NIV in ICU if clinically improved and ABG improving.She remains full code. IV solumedrol and scheduled duonebs for AECOPD. Low suspicion for bacterial infection at this point. Will monitor off antibiotics. Further evaluation regarding recent dialysis- Concern that potentially under dialyzed (?new dry weight?) and contributing. Hypoxia/dyspnea may be driving tachypnea and air trapping. Total critical care time for this patient with life-threatening unstable organ failure, including direct patient contact, management of life support systems, review of data including imaging and labs, and discussions with other team members and physicians at least 35 minutes so far today, excludingprocedures. documented in this [facility]10-10-2024 [facility] 08-10-2024 Nurse Note* Jim Rodriguez RN - 08/10/2024 2:13 PM EDT Report called to nurse Syed at [facility]. This RN verified with Dr. Espana that pt is leavingwith johnson catheter. * Rene Euceda - 08/10/2024 9:05 AM EDT Patient Name: Sandy Deng Patient : 1960 Acct: [id number] Date of Admission: 07/26/2024 [facility] B Code Status: Full Code Allergies: No Known Allergies Diagnosis: Patient Active Problem List Diagnosis SDH (subdural hematoma) (HCC) COPD (chronic obstructive pulmonary disease) (HCC) Type 1 diabetes mellitus with kidney complication (HCC) Myocardial infarction (HCC) Hyperlipidemia Diabetic neuropathy associated with type 1 diabetes mellitus (HCC) Stage 4 chronic kidney disease (HCC) Treatment: Hemodilaysis 2:1 Priority: Routine Location: Acute Room Diabetic: Yes NPO: No Isolation Precautions: Dialysis Consent for Treatment Verified: Yes Blood Consent Verified: Not Applicable ICEBOAT: Identify, Consent, Equipment, HepB Status, Orders Complete, Access Verified, Timeliness (o2 and suction functional @ bedside) Second Clinician Verifying: Matteo Keller RN Time out performed prior to access at 0856. Report Received from Primary RN at 0802. Primary RN (First Initial, Last Name, Title): Jason BEAVER RN Incapacitated Nurse Education Completed: niya keller rn HBsAg ONLY: Date Drawn: July 27, 2024 Results: Negative HBsAb: Date Drawn: July 27, 2024 Results: Susceptible <10 Order Dialyzer: Nipro Na+ Modeling: Not Applicable Dialysate Temperature (C): 36 Blood Flow Rate (BFR): 350 Dialysate Flow Rate (DFR): 600 Access to be Utilized Access: Tunneled Catheter Location: Internal Jugular Side: Right Needle gauge: Not Applicable + Bruit/Thrill: Not Applicable First Use X-ray Verified: Not Applicable OK to use line order: Yes Site Assessment: Signs and Symptoms of Infection/Inflammation: None If yes: Not Applicable Dressing: Soiled Site Prep: Medical Aseptic Technique Dressing Changed this Treatment: Yes If yes, by whom: Manjeet SORIANO Date of Last Dressing Change: August 06, [address]?: Yes Red Alcohol Caps in place?: Yes Gauze Dressing?: No Non-Dialysis Use?: No Comment: Flows: Good and Patent If access problem, who was notified: Pre and Post-Assessment Patient Vitals for the past 8 hrs: Level of Consciousness Heart Rhythm Respiratory Pattern O2 Device Bilateral Breath Sounds Skin Condition/Temp Abdomen Inspection Bowel Sounds (All Quadrants) Edema RLE Edema LLE Edema 08/10/24 0855 Alert (0) Regular Tachypnea Nasal cannula Diminished Warm;Dry Soft Active Left lower extremity;Right lower extremity +2 +2 08/10/24 1217 Alert (0) Regular -- -- -- -- -- -- -- -- -- Labs Lab Results Component Value Date/Time WBC 6.0 08/10/202434 HGB 7.8 (L) 08/10/202434 HGB 7.1 07/31/2024 06 HCT 26.2 (L) 08/10/202434 PLT 95 (L) 08/10/202434 NA 138 08/10/202434 K 4.2 08/10/202434 CL 102 08/10/202434 CO2 33 (H) 08/10/202434 BUN 25 (H) 08/10/202434 CREATININE 2.85 (H) 08/10/202434 CALCIUM 6.6 (L) 08/10/202434 PHOS 4.5 08/10/202434 IV Drips and Rate/Dose Safety - Before each treatment: Dialysis Machine No.: [id number] RO Machine Number: [id number] Dialyzer Lot No.: [id number] Tubing Lot Number: [id number] All Connections Secure: Yes Venous Parameters Set: Yes Arterial Parameters Set: Yes NS Bag: Yes Saline Line Double Clamped: Yes Dialyzer: Nipro Prime Volume (mL): 200 mL RO Machine Number: [id number] RO Machine Log Sheet Completed: Yes Machine Alarm Self Test: Completed, Passed (08/10/24 0945) Air Foam Detector: Tested, Proper Function, pH Reading Extracorporeal Circuit Tested for Integrity: Yes Machine Conductivity: 13.7 Manual Conductivity: 13.6 Machine Ph: 7 Manual Ph: 7.2 Bleach Test (Neg): Yes Bath Temperature: 36 C (96.8 F) Conductivity Meter Serial #: [id number] Machine Functioning Alarm Free? Yes Dialysis Bath: K+ (Potassium): 2 Ca+ (Calcium): 2.5 Na+ (Sodium): 136 HCO3 (Bicarb): 36 Bicarbonate Concentrate Lot No.: [id number] Acid Concentrate Lot No.: [id number] Chlorine Testing - Before each treatment and every 4 hours: Time On: 900 Time Off: 1217 Treatment Goal: 2.5L Weight Height: 167.6 cm (5' 5.98) (08/03/24 1355) Weight: 57.4 kg (126 lb 8.7 oz) (08/07/24 040) BMI (Calculated): 20.43 (08/07/24399) 1st check: less than 0.1 ppm at: 0845 2nd check: less than 0.1 ppm at: 1145 3rd check: Not Applicable (if greater than 0.1 ppm, then check every 30 minutes from secondary) Access Flows and Pressures Patient Vitals for the past 8 hrs: Blood Flow Rate (mL/min) Ultrafiltration Rate (ml/hr) Arterial Pressure (mmHg) Venous Pressure (mmHg) TMP DFR Access Visible Intra-Hemodialysis Comments 08/10/24 0859 -- -- -- -- -- -- Yes pt aware of call light within reach and educated on use of calllight 08/10/24 0901 200 mL/min 1000 ml/hr -30 mmHg 20 mmHg 30 600 Yes tx iniated lines secured pt stable 08/10/24 0903 350 mL/min 1000 ml/hr -110 mmHg 60 mmHg 70 600 Yes bfr increased 08/10/24 0915 350 mL/min 1000 ml/hr -140 mmHg 90 mmHg 70 600 Yes pt resting, removed 234 08/10/24 0930 -- -- -- -- -- -- -- pt resting, removed 500. machine alrming with code. blood returned, new machine in test 08/10/24 0945 -- -- -- -- -- -- Yes setting up new machine, pt resting/stable 08/10/24 0954 350 mL/min 970 ml/hr -120 mmHg 80 mmHg 90 600 Yes pt back on tx, removed 34 08/10/24 1002 350 mL/min 970 ml/hr -140 mmHg 90 mmHg 80 600 Yes pt resting, lines secure, removed 138 08/10/24 1015 350 mL/min 970 ml/hr -150 mmHg 90 mmHg 80 600 Yes pt stable, lines secured, bicarb jug changed 13.5/7, 355 removed 08/10/24 1030 350 mL/min 970 ml/hr -160 mmHg 100 mmHg 80 600 Yes pt resting, lines secure, stable, removed 608 08/10/24 1045 350 mL/min 970 ml/hr -170 mmHg 100 mmHg 70 600 Yes pt sleeping, stable, removed 833 08/10/24 1100 350 mL/min 970 ml/hr -160 mmHg 100 mmHg 70 600 Yes pt resting, lines secure, removed [id number] 08/10/24 1115 350 mL/min 970 ml/hr -160 mmHg 100 mmHg 70 600 Yes pt resting, stable cuff readjusted, 1380 removed, dr gaffney @ bedside 08/10/24 1130 350 mL/min 970 ml/hr -160 mmHg 100 mmHg 80 600 Yes pt resting, stable, call light within reach lines secured, 1588 removed 08/10/24 1145 350 mL/min 970 ml/hr -170 mmHg 100 mmHg 80 600 Yes pt alert, removed 1801 08/10/24 1200 350 mL/min 970 ml/hr -170 mmHg 100 mmHg 60 600 Yes pt resting, lines secure,.removed 2009, uf per rn to support bp 08/10/24 1217 -- -- -- -- -- -- Yes tx complete pt stable 2013 removed Vital Signs Patient Vitals for the past 24 hrs: BP Temp Temp src Pulse Resp SpO2 08/10/24 1221 133/56 -- -- 81 -- -- 08/10/24 1217 133/54 36.1 C (97 F) -- 82 16 100 % 08/10/24 1200 (!) 103/42 -- -- 80 -- -- 08/10/24 1145 124/56 -- -- 95 -- -- 08/10/24 1130 119/51 -- -- 79 -- -- 08/10/24 1115 125/55 -- -- 80 -- -- 08/10/24 1100 124/51 -- -- 79 -- -- 08/10/24 1045 123/61 -- -- 80 -- -- 08/10/24 1030 130/54 -- -- 82 -- -- 08/10/24 1015 (!) 117/49 -- -- 79 -- -- 08/10/24 1002 130/60 -- -- 80 -- -- 08/10/24 0954 143/58 -- -- 85 -- -- 08/10/24 0930 (!) 102/49 -- -- 81 -- -- 08/10/24 0915 123/52 -- -- 81 -- -- 08/10/24 0903 142/62 -- -- 85 -- -- 08/10/24 0901 144/60 -- -- 86 -- -- 08/10/24 0859 150/63 36.6 C (97.9 F) -- 87 20 100 % 08/10/24 0806 -- -- -- -- -- 100 % 08/10/24 0639 131/52 (!) 35.9 C (96.7 F) Temporal 88 24 93 % 08/10/24 0207 151/68 36.7 C (98.1 F) Temporal 88 20 97 % 08/09/24 2239 -- -- -- 88 20 98 % 08/09/24 2207 134/58 36.8 C (98.3 F) Temporal 84 24 99 % 08/09/24 1807 154/60 36.8 C (98.2 F) Temporal 92 18 99 % 08/09/24 1433 -- -- -- 80 -- 100 % 08/09/24 1322 150/68 36.5 C (97.7 F) Temporal 89 20 100 % Post-Dialysis Arterial Catheter Locking Solution: Heparin (1000units:1ml) Volume (ml): 1.6 Venous Catheter Locking Solution: Heparin (1000units:1ml) Volume (ml): 1.7 Post-Treatment Procedures: Blood returned, Catheter capped, clamped and heparinized x 2 ports Machine Disinfection Process: Exterior Machine Disinfection Rinseback Volume (mL): 300 mL Total Liters Processed (L/min): 45.6 L/min Dialyzer Clearance: Lightly streaked Hemodialysis Intake (ml): 500 ml Hemodialysis Output (ml): 2013 ml NET Removed (ml): 1513 ml Tolerated Treatment: Good Interventions Taken: Ultrafiltration stopped Patient Response to Treatment: stable Physician Notified: Yes Patient Disposition: Return to room Charge: $ IP Hemodialysis Charge: Hemodialysis Provider Notification Provider Notification Reason for Communication: Evaluate (patient drowsy) Provider Name: Raegan Provider Role: Resident Method of Communication: Secure chat Response: No new orders Reason for Communication: Evaluate (patient drowsy) Provider Role: Resident Method of Communication: Secure chat Response: No new orders Handoff complete and report given to Primary RN at 1222. Primary RN (First Initial, Last Name, Title): M RIFFIE RN Education Person Educated: Patient Knowledge Base: Substantial Barriers to Learning?: None Preferred method of Learning: Oral Topic(s): call light, Access Care, Signs and Symptoms of Infection, Fluid Management, and Procedural Teaching Tools: Explanation Response to Education: Verbalized Understanding * Joycelyn Welch RN - 08/09/2024 6:46 AM EDT 0035- pt glucose 69 on daily BMP. This RN checked capillary glucose at 0141 that was <50. 1/2 amp of D5 given. At this time, pt attending signed in as Dr. Conte so this RN messaged trauma resident. Trauma resident advised that this RN not start D5 at 100cc/hr and to keep glucose above 70. 0220- repeat glucose 70. This RN gave pt 1 cup of thickened apple juice. 0308- repeat glucose 83. 0609- repeat glucose <50. 1/2 amp of D5 given. Glucose confirmation drawn. This RN again messaged trauma resident when trauma resident said Trauma is not actually covering this patient and that the patient was followed by Med Team. This RN reached out to Med Team resident and [facility] 0639- 1mg IM glucagon given per resident. 0647- glucose confirmation came back at 216. 0654- D5 infusion discontinued at this time. 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 Report Received from Primary RN at 1508. Primary RN (First Initial, Last Name, Title): Hasmukh Middleton RN Incapacitated Nurse Education Completed: Niya Keller RN HBsAg ONLY: Date Drawn: July 27, 2024 Results: Negative HBsAb: Date Drawn: July 27, 2024 Results: Susceptible <10 Order Dialyzer: Nipro Na+ Modeling: Not Applicable Dialysate Temperature (C): 36 Blood Flow Rate (BFR): 350 Dialysate Flow Rate (DFR): 600 Access to be Utilized Access: Tunneled Catheter Location: Internal Jugular Side: Right Needle gauge: Not Applicable + Bruit/Thrill: Not Applicable First Use X-ray Verified: Yes OK to use line order: Yes Site Assessment: Signs and Symptoms of Infection/Inflammation: None If yes: Not Applicable Dressing: Dry and Intact Site Prep: Medical Aseptic Technique Dressing Changed this Treatment: No If yes, by whom: NA - not changed today Date of Last Dressing Change: August 05, [address]?: Yes Red Alcohol Caps in place?: Yes Gauze Dressing?: No Non-Dialysis Use?: No Comment: Flows: Good If access problem, who was notified: Pre and Post-Assessment Patient Vitals for the past 8 hrs: Level of Consciousness Heart Rhythm O2 Device Bilateral Breath Sounds Skin Color Skin Condition/Temp Abdomen Inspection Bowel Sounds (All Quadrants) Edema RLE Edema LLE Edema 08/07/24 1600 -- -- -- Diminished Ecchymosis Warm;Dry;Swollen Soft;Nondistended Active Right lower extremity;Left lower extremity +2 +2 08/07/24 1737 Alert (0) Regular Nasal cannula Diminished -- Dry;Warm Soft;Nondistended Audible Right lower extremity;Left lower extremity -- -- 08/07/242044 Alert (0) Regular -- -- -- -- -- -- -- -- -- Labs Lab Results Component Value Date/Time WBC 8.0 08/07/2024105 HGB 8.1 (L) 08/07/2024105 HGB 7.1 07/31/2024 06 HCT 26.7 (L) 08/07/2024105 PLT 128 (L) 08/07/2024105 NA 134 (L) 08/07/2024105 K 4.2 08/07/2024105 CL 102 08/07/2024105 CO2 31 (H) 08/07/2024105 BUN 23 (H) 08/07/2024105 CREATININE 2.07 (H) 08/07/2024105 CALCIUM 6.9 (L) 08/07/2024105 PHOS 3.7 08/07/2024105 IV Drips and Rate/Dose Safety - Before each treatment: Dialysis Machine No.: [id number] RO Machine Number: [id number] Dialyzer Lot No.: [id number] Tubing Lot Number: [id number] All Connections Secure: Yes Venous Parameters Set: Yes Arterial Parameters Set: Yes NS Bag: Yes Saline Line Double Clamped: Yes Dialyzer: Nipro Prime Volume (mL): 200 mL RO Machine Number: [id number] RO Machine Log Sheet Completed: Yes Machine Alarm Self Test: Completed, Passed (1616) (08/07/24 1630) Air Foam Detector: pH Reading, Proper Function, Tested Extracorporeal Circuit Tested for Integrity: Yes Machine Conductivity: 13.6 Manual Conductivity: 13.6 Machine Ph: 7 Manual Ph: 7 Bleach Test (Neg): Yes Bath Temperature: 36 C (96.8 F) Conductivity Meter Serial #: [id number] Machine Functioning Alarm Free? Yes Dialysis Bath: K+ (Potassium): 2 Ca+ (Calcium): 2.5 Na+ (Sodium): 136 HCO3 (Bicarb): 36 Bicarbonate Concentrate Lot No.: [id number] Acid Concentrate Lot No.: [id number] Chlorine Testing - Before each treatment and every 4 hours: Time On: 1741 Time Off: 2041 Treatment Goal: 2L Weight Height: 167.6 cm (5' 5.98) (08/03/24 1355) Weight: 57.4 kg (126 lb 8.7 oz) (08/07/24 040) BMI (Calculated): 20.43 (08/07/24 040) 1st check: less than 0.1 ppm at: 1445 2nd check: less than 0.1 ppm at: 1745 3rd check: Not Applicable (if greater than 0.1 ppm, then check every 30 minutes from secondary) Access Flows and Pressures Patient Vitals for the past 8 hrs: Blood Flow Rate (mL/min) Ultrafiltration Rate (ml/hr) Arterial Pressure (mmHg) Venous Pressure (mmHg) TMP DFR Access Visible Intra-Hemodialysis Comments 08/07/24 1737 -- -- -- -- -- -- Yes pt aware of call light within reach and educated on use of calllight 08/07/24 1742 200 mL/min 830 ml/hr -30 mmHg 30 mmHg 30 600 Yes tx iniated lines secured pt stable 08/07/24 1743 350 mL/min 830 ml/hr -110 mmHg 110 mmHg 40 600 Yes bfr increased 08/07/24 1800 350 mL/min 830 ml/hr -120 mmHg 110 mmHg 60 600 Yes pt sleeping uf rmv 370 08/07/24 1815 350 mL/min 830 ml/hr -130 mmHg 110 mmHg 60 600 Yes pt alert watching tv uf rmv 473 08/07/24 1832 350 mL/min 830 ml/hr -130 mmHg 110 mmHg 60 600 Yes Pt alert stable rmvd 713 08/07/24 1845 350 mL/min 830 ml/hr -140 mmHg 110 mmHg 50 600 Yes pt stable, 901 removed 08/07/24 1900 350 mL/min 710 ml/hr -140 mmHg 100 mmHg 60 600 Yes pt resting, 1092 removed, RN @ bedside, uf goal decreased by 200 d/t lowering bp, pt has no c/o 08/07/24 1915 350 mL/min 710 ml/hr -130 mmHg 100 mmHg 60 600 Yes Pt sleeping rmvd 1256. Lines secure. 08/07/24 1930 350 mL/min 710 ml/hr -130 mmHg 110 mmHg 60 600 Yes Pt stable rmvd 1544. Restimg. 08/07/24 1945 350 mL/min 710 ml/hr -130 mmHg 110 mmHg 60 600 Yes Pt stable rmvd 1629 08/07/24 2002 350 mL/min 710 ml/hr -130 mmHg 110 mmHg 60 600 Yes Pt stable rmvd 1797. sleeping, lines secure.. Call light in reach. 08/07/242014 350 mL/min 710 ml/hr -130 mmHg 110 mmHg 60 600 Yes Pt sleeping. rmvd 1996. Call lightin reach. 08/07/242030 350 mL/min 710 ml/hr -130 mmHg 120 mmHg 60 600 Yes Pt stable rmvd 2140. sleeping. 08/07/242041 -- -- -- -- -- -- Yes tx complete pt stable 2300 removed Vital Signs Patient Vitals for the past 24 hrs: BP Temp Temp src Pulse Resp SpO2 Weight 08/07/242044 149/68 -- -- 75 -- -- -- 08/07/242041 130/66 36.8 C (98.2 F) -- 76 16 99 % -- 08/07/242030 141/62 -- -- 72 -- -- -- 08/07/242014 128/67 -- -- 75 -- -- -- 08/07/242001 124/68 -- -- 75 -- -- -- 08/07/24 1945 122/57 -- -- 75 -- -- -- 08/07/24 1930 118/58 -- -- 76 -- -- -- 08/07/24 1915 104/50 -- -- 76 -- -- -- 08/07/24 1900 (!) 94/45 -- -- 74 -- -- -- 08/07/24 1845 (!) 101/47 -- -- 79 -- -- -- 08/07/24 1832 107/53 -- -- 76 -- -- -- 08/07/24 1815 (!) 109/48 -- -- 75 -- -- -- 08/07/24 1800 125/53 -- -- 74 -- -- -- 08/07/24 1743 141/58 -- -- 76 -- -- -- 08/07/24 1742 140/57 -- -- 75 -- -- -- 08/07/24 1737 148/57 36.7 C (98.1 F) -- 77 16 98 % -- 08/07/24 1548 139/51 37.1 C (98.7 F) Temporal 76 -- 100 % -- 08/07/24 1320 140/66 36.7 C (98 F) Temporal 79 20 99 % -- 08/07/24 0749 (!) 162/58 36.4 C (97.6 F) Temporal 75 18 99 % -- 08/07/24 0510 157/59 (!) 35.8 C (96.5 F) Temporal 71 19 99 % -- 08/07/24 0400 -- -- -- -- -- -- 57.4 kg (126 lb 8.7 oz) 08/07/24 0144 152/57 36.3 C (97.3 F) Temporal 75 19 100 % -- 08/06/24 2212 139/59 36.2 C (97.2 F) Temporal 71 17 100 % -- Post-Dialysis Arterial Catheter Locking Solution: Heparin (1000units:1ml) Volume (ml): 1.6 Venous Catheter Locking Solution: Heparin (1000units:1ml) Volume (ml): 1.7 Post-Treatment Procedures: Blood returned, Catheter capped, clamped and heparinized x 2 ports Machine Disinfection Process: Acid/Vinegar Clean, Heat Disinfect, Exterior Machine Disinfection Rinseback Volume (mL): 300 mL Total Liters Processed (L/min): 59.8 L/min Dialyzer Clearance: Lightly streaked Hemodialysis Intake (ml): 500 ml Hemodialysis Output (ml): 2300 ml NET Removed (ml): 1800 ml Tolerated Treatment: Good Interventions Taken: Ultrafiltration goal decreased Patient Response to Treatment: stable Physician Notified: Yes Patient Disposition: Return to room Charge: $ IP Hemodialysis Charge: Hemodialysis Provider Notification Provider Notification Reason for Communication: Evaluate (patient drowsy) Provider Name: Raegan Provider Role: Resident Method of Communication: Secure chat Response: No new orders Reason for Communication: Evaluate (patient drowsy) Provider Role: Resident Method of Communication: Secure chat Response: No new orders Handoff complete and report given to Primary RN at 2046. Primary RN (First Initial, Last Name, Title): Carlos Vides RN Education Person Educated: Patient Knowledge Base: Substantial Barriers to Learning?: None Preferred method of Learning: Oral Topic(s): Call light education, Access Care, Signs and Symptoms of Infection, and Fluid Management Teaching Tools: Explanation Response to Education: Verbalized Understanding * Christy Mckeon RN - 08/06/2024 6:28 PM EDT Patient bladder scanned for 113 ml. Patient states she does not need to void. 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 Report Received from Primary RN at 1999. Primary RN (First Initial, Last Name, Title): Marc Squires RN Incapacitated Nurse Education Completed: Yes, Marc Squires RN HBsAg ONLY: Date Drawn: July 27, 2024 Results: Negative HBsAb: Date Drawn: July 27, 2024 Results: Susceptible <10 Order Dialyzer: Nipro Na+ Modeling: Not Applicable Dialysate Temperature (C): 36 Blood Flow Rate (BFR): 350 Dialysate Flow Rate (DFR): 600 Access to be Utilized Access: Non-tunneled Catheter Location: Subclavian Side: Right Needle gauge: Not Applicable + Bruit/Thrill: Not Applicable Site Assessment: Signs and Symptoms of Infection/Inflammation: None If yes: Not Applicable Dressing: Dry and Intact Site Prep: Medical Aseptic Technique Dressing Changed this Treatment: No If yes, by whom: na Date of Last Dressing Change: August 03, [address]?: Yes Red Alcohol Caps in place?: Yes Gauze Dressing?: naq Non-Dialysis Use?: No Comment: Flows: Good and Patent If access problem, who was notified: Pre and Post-Assessment Patient Vitals for the past 8 hrs: Level of Consciousness Oriented X Heart Rhythm O2 Device Bilateral Breath Sounds Skin Color Skin Condition/Temp Abdomen Inspection Bowel Sounds (All Quadrants) Edema Generalized Edema RUE Edema LUE Edema RLE Edema LLE Edema 08/05/241999 -- -- -- -- Diminished Pale Warm;Dry Soft;Flat Active -- -- None None Non-pitting Non-pitting 08/05/242049 Alert (0) X3 Regular Nasal cannula Diminished [place]inson Warm;Dry Soft;Flat Present Other (Comment) Other (Comment) None None None None 08/06/2444 Alert (0) X3 -- -- -- -- -- Soft;Flat -- -- -- -- -- -- -- Labs Lab Results Component Value Date/Time WBC 7.4 08/05/2024 0256 HGB 7.4 (L) 08/05/2024 0256 HGB 7.1 07/31/2024 0605 HCT 23.6 (L) 08/05/2024255 PLT 168 08/05/2024255 NA 132 (L) 08/05/2024255 K 4.0 08/05/2024255 CL 105 08/05/2024255 CO2 26 08/05/2024255 BUN 35 (H) 08/05/2024255 CREATININE 2.56 (H) 08/05/2024255 CALCIUM 6.7 (L) 08/05/2024255 PHOS 3.6 08/05/2024255 IV Drips and Rate/Dose Safety - Before each treatment: Dialysis Machine No.: [id number] RO Machine Number: [id number] Dialyzer Lot No.: [id number] Tubing Lot Number: [id number] All Connections Secure: Yes Venous Parameters Set: Yes Arterial Parameters Set: Yes NS Bag: Yes Saline Line Double Clamped: Yes Dialyzer: Nipro Prime Volume (mL): 200 mL RO Machine Number: [id number] RO Machine Log Sheet Completed: Yes Machine Alarm Self Test: Completed, Passed (2103) (08/05/242103) Air Foam Detector: Tested, Proper Function Extracorporeal Circuit Tested for Integrity: Yes Machine Conductivity: 13.5 Manual Conductivity: 13.4 Manual Ph: 7.8 Bleach Test (Neg): Yes Bath Temperature: 36 C (96.8 F) Conductivity Meter Serial #: [id number] Machine Functioning Alarm Free? Yes Dialysis Bath: K+ (Potassium): 2 Ca+ (Calcium): 2.5 Na+ (Sodium): 136 HCO3 (Bicarb): 36 Bicarbonate Concentrate Lot No.: [id number] Acid Concentrate Lot No.: [id number] Chlorine Testing - Before each treatment and every 4 hours: Time On: 1105 Time Off: 0028 Treatment Goal: avoid hypotension, keep sbp >90, can use alb up to 50g if needed Weight Height: 167.6 cm (5' 5.98) (08/03/24 1355) Weight: 60.5 kg (133 lb 6.1 oz) (08/05/24 0500) BMI (Calculated): 21.54 (08/05/24 050) 1st check: less than 0.1 ppm at: 2045 2nd check: less than 0.1 ppm at: 2300 3rd check: Not Applicable (if greater than 0.1 ppm, then check every 30 minutes from secondary) Access Flows and Pressures Patient Vitals for the past 8 hrs: Blood Flow Rate (mL/min) Ultrafiltration Rate (ml/hr) Arterial Pressure (mmHg) Venous Pressure (mmHg) TMP DFR Access Visible Intra-Hemodialysis Comments 08/05/24 2126 200 mL/min 500 ml/hr -80 mmHg 80 mmHg 10 600 Yes tx started, RN by the bedside, call light within reach 08/05/24 2130 350 mL/min 500 ml/hr -80 mmHg 80 mmHg 30 600 Yes bfr to 350, pt awake 08/05/24 2145 350 mL/min 500 ml/hr -90 mmHg 80 mmHg 30 600 Yes ufr 153, RN by the bedside 08/05/24 2200 350 mL/min 500 ml/hr -90 mmHg 90 mmHg 30 600 Yes ufr 271, pt stable 08/05/24 2215 350 mL/min 500 ml/hr -100 mmHg 90 mmHg 30 600 Yes ufr 408, pt awake 08/05/24 2230 350 mL/min 500 ml/hr -100 mmHg 90 mmHg 30 600 Yes ufr 537, pt resting 08/05/24 2245 350 mL/min 500 ml/hr -100 mmHg 90 mmHg 30 600 Yes ufr 652,pt resting 08/05/24 2300 350 mL/min 500 ml/hr -100 mmHg 80 mmHg 30 600 Yes ufr 756, pt awake 08/05/24 2315 350 mL/min 500 ml/hr -100 mmHg 80 mmHg 20 600 Yes ufr 881, pt stable 08/05/24 2330 350 mL/min 500 ml/hr -100 mmHg 80 mmHg 20 600 Yes ufr 997, pt stable 08/05/24 2345 350 mL/min 500 ml/hr -100 mmHg 80 mmHg 30 600 Yes ufr 1119, pt stable 08/06/24 0000 350 mL/min 500 ml/hr -100 mmHg 80 mmHg 20 600 Yes ufr 1243, pt stable 08/06/24 0015 350 mL/min 500 ml/hr -100 mmHg 80 mmHg 20 600 Yes ufr 1365, pt stable 08/06/24 0028 200 mL/min -- -- -- -- -- -- ufr 500, tx completed, call light within reach, pt resting Vital Signs Patient Vitals for the past 24 hrs: BP Temp Temp src Pulse Resp SpO2 Weight 08/06/24 0045 141/59 36.6 C (97.8 F) -- 83 19 100 % -- 08/06/24 0028 149/66 -- -- 78 19 100 % -- 08/06/24 0015 153/54 -- -- 80 20 100 % -- 08/06/24 0000 149/53 36.5 C (97.7 F) -- 76 18 100 % -- 08/05/24 2345 (!) 138/49 -- -- 75 19 100 % -- 08/05/24 2330 141/54 -- -- 78 20 100 % -- 08/05/24 2315 145/68 -- -- 75 20 100 % -- 08/05/24 2300 147/52 -- -- 75 19 99 % -- 08/05/24 2245 (!) 140/48 -- -- 72 16 100 % -- 08/05/24 2230 (!) 128/46 -- -- 68 17 100 % -- 08/05/24 2215 153/52 -- -- 71 21 100 % -- 08/05/24 2200 128/67 -- -- 74 21 100 % -- 08/05/24 2145 134/64 -- -- 71 21 100 % -- 08/05/24 2130 142/63 -- -- 73 20 100 % -- 08/05/242125 (!) 142/36 -- -- 72 20 100 % -- 08/05/242114 125/51 -- -- 71 18 100 % -- 08/05/242103 -- -- -- 74 21 100 % -- 08/05/24 2100 122/53 -- -- 70 20 100 % -- 08/05/240 120/52 36.4 C (97.6 F) -- 71 20 100 % -- 08/05/241999 127/55 36.8 C (98.2 F) Temporal 67 19 100 % -- 08/05/24 1900 127/51 -- -- 76 16 100 % -- 08/05/24 1800 128/58 -- -- 74 24 99 % -- 08/05/24 1700 138/50 -- -- 78 21 100 % -- 08/05/24 1600 133/64 36.8 C (98.2 F) Temporal 78 22 100 % -- 08/05/24 1500 (!) 141/115 -- -- 77 23 100 % -- 08/05/24 1400 124/51 -- -- 71 16 99 % -- 08/05/24 1300 (!) 123/49 -- -- 75 22 99 % -- 08/05/24 1200 144/54 36.7 C (98.1 F) Temporal 79 20 100 % -- 08/05/24 1100 147/54 -- -- 74 22 100 % -- 08/05/24 0900 124/86 -- -- 81 20 100 % -- 08/05/24 0800 156/66 36.7 C (98.1 F) Temporal 74 19 100 % -- 08/05/24 0700 134/52 -- -- 73 18 100 % -- 08/05/24 0600 144/71 -- -- 73 21 100 % -- 08/05/24 0500 (!) 120/44 -- -- 66 18 100 % 60.5 kg (133 lb 6.1 oz) 08/05/24 0400 (!) 123/42 -- -- 65 19 100 % -- 08/05/24 0300 138/64 -- -- 56 20 (!) 84 % -- 08/05/24 0202 (!) 97/42 -- -- 51 19 100 % -- 08/05/24 0200 (!) 95/44 -- -- 51 19 100 % -- 08/05/24 0102 109/91 -- -- 56 21 100 % -- 08/05/24 0100 (!) 104/45 -- -- 54 17 100 % -- Post-Dialysis Arterial Catheter Locking Solution: 1.7 Venous Catheter Locking Solution: 1.6 Post-Treatment Procedures: Blood returned, Catheter capped, clamped and heparinized x 2 ports Machine Disinfection Process: Exterior Machine Disinfection Rinseback Volume (mL): 300 mL Total Liters Processed (L/min): 60.8 L/min Dialyzer Clearance: Lightly streaked Hemodialysis Intake (ml): 500 ml Hemodialysis Output (ml): 1000 ml NET Removed (ml): 500 ml Tolerated Treatment: Good Interventions Taken: Medication Patient Response to Treatment: stable Physician Notified: Yes Patient Disposition: Remain in ICU/ED Charge: $ IP Hemodialysis Charge: Hemodialysis Provider Notification Provider Notification Reason for Communication: Evaluate (patient drowsy) Provider Name: Carlin Provider Role: Resident Method of Communication: Secure chat Response: No new orders Reason for Communication: Evaluate (patient drowsy) Provider Role: Resident Method of Communication: Secure chat Response: No new orders Handoff complete and report given to Primary RN at 0030. Primary RN (First Initial, Last Name, Title): Marc Squires RN Education Person Educated: Patient Knowledge Base: Substantial Barriers to Learning?: None Preferred method of Learning: Oral Topic(s): Emergency, Access Care, Signs and Symptoms of Infection, Fluid Management, and Albumin Teaching Tools: Explanation Response to Education: Verbalized Understanding * Malgorzata Martinez RN - 08/04/2024 9:47 AM EDT Wound Care consulted for Pressure Injury Prevention. Pt's Hipolito score= 16 on 08/04 Pt's pressure points assessed. Pt's Heels, Buttocks/coccyx, Back, Elbows, Occiput and ears all intact. Coccyx with blanchable erythema. Prevention Measures in place, including: [place] sheet with pillows/wedges, Foam heel protectors (changed), Heels elevated off bed on pillows, Sacral foam (in place, intact), Zinc/Moisture Barrier ointment, Waffle chair cushion (in place). Skin Care precaution order set in place. Dietitian consult in place. PT/OT consult in place. D/W nursing staff. Will continue to follow pt. Please Voicera for any questions or concerns. 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 Report Received from Primary RN at 1000. Primary RN (First Initial, Last Name, Title): Familai Saucedo RN Incapacitated Nurse Education Completed: Not Applicable HBsAg ONLY: Date Drawn: July 27, 2024 Results: Negative HBsAb: Date Drawn: July 27, 2024 Results: Susceptible <10 Order Dialyzer: Nipro Na+ Modeling: Not Applicable Dialysate Temperature (C): 36 Blood Flow Rate (BFR): 350 Dialysate Flow Rate (DFR): 600 Access to be Utilized Access: Tunneled Catheter Location: Subclavian Side: Right Needle gauge: Not Applicable + Bruit/Thrill: Not Applicable First Use X-ray Verified: Yes OK to use line order: Yes Site Assessment: Signs and Symptoms of Infection/Inflammation: None If yes: Not Applicable Dressing: dry blood Site Prep: Medical Aseptic Technique Dressing Changed this Treatment: Yes If yes, by whom: Manjeet SORIANO Date of Last Dressing Change: August 03, [address]?: Yes Red Alcohol Caps in place?: Yes Gauze Dressing?: No Non-Dialysis Use?: No Comment: Flows: Good and Patent If access problem, who was notified: Pre and Post-Assessment Patient Vitals for the past 8 hrs: Level of Consciousness Oriented X Heart Rhythm O2 Device Bilateral Breath Sounds Skin Color Skin Condition/Temp Abdomen Inspection Bowel Sounds (All Quadrants) Edema Generalized Edema RUE Edema LUE Edema RLE Edema LLE Edema Pre-Hemodialysis Comments 08/03/24 0800 -- -- -- -- Clear Pale Cool Soft Active Generalized +1 Mild Mild None None -- 08/03/24 1100 Alert (0) DOLORES Irregular Nasal cannula Diminished Pale Dry;Cool Soft Active Generalized;Right upper extremity +1 Mild None None None at bedside to sign consent 08/03/24 1420 Alert (0) DOLORES Irregular Nasal cannula Diminished -- -- -- -- -- -- -- -- -- -- -- Labs Lab Results Component Value Date/Time WBC 10.8 (H) 08/03/202421 HGB 8.5 (L) 08/03/202421 HGB 7.1 07/31/2024604 HCT 28.6 (L) 08/03/202421 PLT 210 08/03/202421 NA 137 08/03/202421 K 4.3 08/03/202421 CL 110 (H) 08/03/202421 CO2 26 08/03/202421 BUN 28 (H) 08/03/202421 CREATININE 2.29 (H) 08/03/202421 CALCIUM 7.4 (L) 08/03/202421 PHOS 3.4 08/03/202421 IV Drips and Rate/Dose Safety - Before each treatment: Dialysis Machine No.: [id number] Machine Number: [id number] All Connections Secure: Yes Venous Parameters Set: Yes Arterial Parameters Set: Yes NS Bag: Yes Saline Line Double Clamped: Yes Dialyzer: Nipro Prime Volume (mL): 200 mL Machine Number: [id number] RO Machine Log Sheet Completed: Yes Machine Alarm Self Test: Completed, Passed (08/03/24 1051) Air Foam Detector: Tested, Proper Function, pH Reading Extracorporeal Circuit Tested for Integrity: Yes Machine Conductivity: 13.7 Manual Conductivity: 13.6 Manual Ph: 7 Bleach Test (Neg): Yes Bath Temperature: 36 C (96.8 F) Conductivity Meter Serial #: [id number] Machine Functioning Alarm Free? Yes Dialysis Bath: K+ (Potassium): 2 Ca+ (Calcium): 2.5 Na+ (Sodium): 136 HCO3 (Bicarb): 36 Chlorine Testing - Before each treatment and every 4 hours: Time On: 1105 Time Off: 1405 Treatment Goal: 1L Weight Height: 167.6 cm (5' 5.98) (08/03/24 1355) Weight: 62 kg (136 lb 11 oz) (07/29/24 0500) BMI (Calculated): 22.07 (07/29/24 0500) 1st check: less than 0.1 ppm at: 1035 2nd check: less than 0.1 ppm at: 1210 3rd check: Not Applicable (if greater than 0.1 ppm, then check every 30 minutes from secondary) Access Flows and Pressures Patient Vitals for the past 8 hrs: Blood Flow Rate (mL/min) Ultrafiltration Rate (ml/hr) Arterial Pressure (mmHg) Venous Pressure (mmHg) TMP DFR Access Visible Intra-Hemodialysis Comments 08/03/24 1105 200 mL/min 500 ml/hr -50 mmHg 50 mmHg 80 600 Yes tx initiated, pt stable, lines secure 08/03/24 1115 350 mL/min 500 ml/hr -110 mmHg 140 mmHg 80 600 Yes 101 removed 08/03/24 1130 350 mL/min 500 ml/hr -120 mmHg 150 mmHg 80 600 Yes 230 removed 08/03/24 1145 350 mL/min 500 ml/hr -120 mmHg 150 mmHg 80 600 Yes 334 removed 08/03/24 1200 350 mL/min 500 ml/hr -120 mmHg 150 mmHg 80 600 Yes 464 removed 08/03/24 1215 350 mL/min 500 ml/hr -120 mmHg 140 mmHg 90 600 Yes 581 removed 08/03/24 1230 350 mL/min 500 ml/hr -120 mmHg 150 mmHg 90 600 Yes pt watching tv 08/03/24 1245 350 mL/min 500 ml/hr -120 mmHg 150 mmHg 80 600 Yes 834 removed 08/03/24 1300 350 mL/min 500 ml/hr -130 mmHg 150 mmHg 80 600 Yes 970 removed 08/03/24 1315 350 mL/min 500 ml/hr -130 mmHg 140 mmHg 80 600 Yes 1099 removed 08/03/24 1330 350 mL/min 500 ml/hr -120 mmHg 150 mmHg 80 600 Yes 1272 removed 08/03/24 1345 350 mL/min 500 ml/hr -120 mmHg 140 mmHg 80 600 Yes onsite case manager RN at bedside to speak woth pt 08/03/24 1400 350 mL/min 500 ml/hr -120 mmHg 140 mmHg 80 600 Yes 1465 removed 08/03/24 1405 350 mL/min 900 ml/hr -120 mmHg 140 mmHg 80 600 Yes 1500 removed, tx complete, blood returned, pt alert and shaking head to questions Vital Signs Patient Vitals for the past 24 hrs: BP Temp Temp src Pulse Resp SpO2 Height 08/03/24 1420 133/58 -- -- 61 23 100 % -- 08/03/24 1405 -- -- -- 60 -- -- -- 08/03/24 1400 117/62 -- -- 59 -- -- -- 08/03/24 1355 -- -- -- -- -- -- 1.676 m (5' 5.98) 08/03/24 1345 108/59 -- -- 61 -- -- -- 08/03/24 1330 117/58 -- -- 62 -- -- -- 08/03/24 1315 119/61 -- -- 59 -- -- -- 08/03/24 1300 107/58 -- -- 58 -- -- -- 08/03/24 1245 125/65 -- -- 59 -- -- -- 08/03/24 1230 111/60 -- -- 58 -- -- -- 08/03/24 1215 117/63 -- -- 59 -- -- -- 08/03/24 1200 106/57 -- -- 58 -- -- -- 08/03/24 1145 113/64 -- -- 60 -- -- -- 08/03/24 1130 116/59 -- -- 60 -- -- -- 08/03/24 1120 139/64 -- -- 65 -- -- -- 08/03/24 1115 121/62 -- -- 62 -- -- -- 08/03/24 1105 141/64 -- -- 64 -- -- -- 08/03/24 1047 131/55 -- -- 62 21 100 % -- 08/03/24 1000 106/53 -- -- 62 (!) 28 100 % -- 08/03/24 0900 124/61 -- -- 63 (!) 26 100 % -- 08/03/24 0800 154/59 36.6 C (97.8 F) Temporal 68 (!) 26 100 % -- 08/03/24 0700 129/51 -- -- 67 (!) 26 100 % -- 08/03/24 0600 160/64 -- -- 65 25 100 % -- 08/03/24 0500 (!) 165/68 -- -- 66 24 100 % -- 08/03/24 0400 153/61 -- -- 64 25 100 % -- 08/03/24 0300 142/60 -- -- 64 (!) 26 100 % -- 08/03/24 0200 (!) 170/78 -- -- 66 (!) 27 100 % -- 08/03/24 0100 147/70 -- -- 67 (!) 26 93 % -- 08/03/24 0000 160/71 36.4 C (97.6 F) Temporal 58 24 100 % -- 08/02/24 2310 146/73 -- -- 60 22 100 % -- 08/02/24 2300 (!) 166/73 -- -- 61 24 100 % -- 08/02/24 2200 131/58 -- -- 57 23 96 % -- 08/02/24 2100 132/58 -- -- 59 23 100 % -- 08/02/242029 -- -- -- 59 24 100 % -- 08/02/24 2000 147/64 36.1 C (97 F) Temporal 59 22 100 % -- 08/02/24 1900 138/61 -- -- 61 22 100 % -- 08/02/24 1800 118/60 -- -- 68 23 100 % -- 08/02/24 1700 128/54 -- -- 66 23 100 % -- 08/02/24 1600 134/56 36.2 C (97.2 F) Temporal 69 25 100 % -- 08/02/24 1500 (!) 137/49 -- -- 67 22 100 % -- Post-Dialysis Arterial Catheter Locking Solution: Heparin (1000units:1ml) Volume (ml): 1.6 Venous Catheter Locking Solution: Heparin (1000units:1ml) Volume (ml): 1.7 Post-Treatment Procedures: Blood returned, Catheter capped, clamped and heparinized x 2 ports Machine Disinfection Process: Exterior Machine Disinfection Rinseback Volume (mL): 300 mL Total Liters Processed (L/min): 59.2 L/min Dialyzer Clearance: Lightly streaked Hemodialysis Intake (ml): 500 ml Hemodialysis Output (ml): 1500 ml NET Removed (ml): 1000 ml Tolerated Treatment: Good Patient Response to Treatment: stable Patient Disposition: Remain in ICU/ED Charge: $ IP Hemodialysis Charge: Hemodialysis Provider Notification Handoff complete and report given to Primary RN at 1424. Primary RN (First Initial, Last Name, Title): Familia aSucedo RN Education Person Educated: Patient Knowledge Base: DOLORES Barriers to Learning?: Yes, including tired/drowsy Preferred method of Learning: Oral Topic(s): Procedural Teaching Tools: Explanation Response to Education: Requires Follow-up * Omi Katz RN - 07/30/2024 3:20 PM EDT Patient pulled out OG tube. Also pulled out ET tube a couple centimeters. . Respiratory therapist advanced ET tube. OG tube place to 55cm. Will get Xray. Restarted Fentanyl. Precedex maxed. * Omi Katz RN - 07/30/2024 2:50 PM EDT Patient got ahold of suction tubing on ET tube. Pulled her ET tube out a couple centimeters. Respiratory therapist notified. * Omi Kazt RN - 07/29/2024 4:20 PM EDT Patient returned from IR. * Melecio Li RN - 07/29/2024 4:12 PM EDT Patient arrived from T2-213 A, Dr. Amezcua in to speak with the family regarding tunneled HD catheter, consent obtained. Patient was placed supine on exam table prepped and draped in sterile fashion. Telemetry monitors placed. Patient tolerated procedure well. Transfer back to room. * Omi Katz RN - 07/29/2024 3:50 PM EDT To IR for tunneled vas cath. * Omi Katz RN - 07/29/2024 3:[address] Mahajan came by and said EEG could be discontinued. * Omi Katz RN - 07/29/2024 12:08 PM EDT Called IR. Patient will get her tunneled catheter this afternoon. * Omi Katz RN - 07/29/2024 8:[address] Heath and team here. They were notified of issues with vas cath. They will talk to Renal to decide what to do. Repostion line vs cath roel vs HD? * Omi Katz RN - 07/29/2024 8:14 AM EDT CRRT alarming extremely negative again. Blood returned. Set disposed. Vas cath lines flushed. * Omi Katz RN - 07/29/2024 8:12 AM EDT CRRT alarming extremely negative pressure. Lines clamped and disconnected. Vas cath ports flushed again. CRRT restarted. * Omi Katz RN - 07/29/2024 8:10 AM EDT CRRT alarming extremely negative. Lines clamped. Vas cath ports flushed. Red line still pulls back easier. Will keep return line attached to red port. * Omi Katz RN - 07/29/2024 8:03 AM EDT CRRT alarming extremely negative. Lines clamped. Vas cath ports flushed. Red port pulls back easier. Will attach return line to red port. CRRT restarted. * Omi Katz RN - 07/29/2024 8:00 AM EDT Cath roel removed from vas cath. Both ports flush easily but neither draw back easily. CRRT started. * Carie Arce RN - 07/29/2024 6:52 AM EDT CRRT paused d/t access line clotting at approximately [id number]. Trouble shooting attempted. Cath flow ordered and given at 0646. documented in this [facility]10-08-2024 History of Present illness Narrative* Saroj Gaffney MD - 08/10/2024 12:17 PM EDT Images from the original note were not included. Nephrology Progress Note Patient: Sandy Deng Room number: [id number] Date of Admit: 07/26/2024 LOS: 15 days Admitting physician: Ino Conte MD Referring physician: Fly De La Garza DO Outpatient X Ray Inspector: Christy Huerta DO Assessment/Plan: 63 year old female with PMH of CKD 4, DM type 1, HTN, CAD, COPD (3L O2 baseline), admitted 07/26 with resp distress and delirium, Covid positive. CT head showed a small right SDH. Consulted for UMA onCKD 4., required CRRT 07/26- 08/01 for severe acidosis in setting of hemodynamic instability. Now transitioned to iHD. #Nonoliguric UMA: Now HD dependent. Baseline Cr has been 2.4-2.8, last (04/26) Cr 2.4 eGFR vlpccgmod=6925 mg. -Suspected ATN in setting of infection/HD instability on arrival -FeNa 1.2% on arrival -c3 56, c4 10 (both low) 07/27, ?IRGN -UA 08/09 turbid, loaded yeast, mod bacteria, >100 WBCs/RBCs, +500 LE -UPCR 2.59 g/g- likely inaccurate in setting of urinary contamination -Repeat c3/4 in process -Currently on TTS dialysis schedule Lytes/Acid-base: Na 138, K 4.2, bicarb 33, modulated with HD Ca/Phos: Ca 6.6 (Alb 2.7), Phos 4.5 HTN/Volume status: #Acute on chronic hypoxic respiratory failure #Coronavirus infection #Pneumonia #Bilateral pleural effusions #Septic shock- resolved -Completed course of meropenem -BP now normo-hypertensive -CXR 08/08 reviewed and notable for pulm edema and bilateral pleural effusions. -UOP 750 ccs/24 hrs with 80 mg IV lasix Anemia: Hgb 7.8 Access: [facility] TDC 07/29 Recommendations: -HD today, continue TTS for now -Can continue lasix on HD off days to assist volume removal -Continue strict I/Os and daily renal function panel to monitor for recovery -Await repeat complements Thank you for this consult, we will continue to follow. Please call or page if any questions [facility] Pager: [phone] Office: [phone]. Office Subjective: Interval history/events: Seen and evaluated on HD. Treatment running without issue. Denies any lightheadedness, cramping, SOB, chest pain or other acute complaints. Past Medical History: Past Medical History: Diagnosis Date COPD (chronic obstructive pulmonary disease) (HCC) Diabetic neuropathy (HCC) Hyperlipidemia Myocardial infarct (HCC) Stage 4 chronic kidney disease (HCC) Type 1 diabetes (HCC) Medications: MAR reviewed. busPIRone, 7.5 mg, Oral, BID fluticasone, 2 spray, Each Nostril, Daily gabapentin, 200 mg, Oral, BID Glycopyrrolate-Formoterol, 2 puff, Inhalation, BID heparin, 5,000 Units, SubCUTAneous, 2 times per day insulin glargine, 3 Units, SubCUTAneous, Nightly insulin lispro, 0-12 Units, SubCUTAneous, TID WC And insulin lispro, 0-12 Units, SubCUTAneous, Nightly ipratropium-albuterol, 3 mL, Nebulization, TID [Held by provider] metoprolol tartrate, 50 mg, Oral, BID mirtazapine, 7.5 mg, Oral, Nightly nitrofurantoin (macrocrystal-monohydrate), 100 mg, Oral, BID pantoprazole, 40 mg, Oral, Nightly Or pantoprazole (ProtoNix) 40 mg in sodium chloride (PF) 0.9 % 10 mL injection, 40 mg, IntraVENous, Nightly [Held by provider] predniSONE, 40 mg, Oral, Daily sodium chloride 0.9%, 10 mL, IntraCATHeter, q12h Review of Systems: All other ROS negative except those noted above. Physical Exam: Vitals: 08/10/24 1115 08/10/24 1130 08/10/24 1145 08/10/24 1200 BP: 125/55 119/51 124/56 (!) 103/42 BP Location: Patient Position: Pulse: 80 79 95 80 Resp: Temp: TempSrc: SpO2: Weight: Height: Admission weight: 48 kg (105 lb 13.1 oz) Wt Readings from Last 3 Encounters: 08/07/24 57.4 kg (126 lb 8.7 oz) I/O last 3 completed shifts: In: 236 (4.1 mL/kg) [P.O.:236] Out: 1225 (21.3 mL/kg) [Urine:1225 (0.6 mL/kg/hr)] Weight: 57.4 kg Net IO Since Admission: 2,802.31 mL [08/10/24 1217] General: A&O x 3, NAD, frail HEENT: Sclera clear, EOMI, MMM, Nose/ears/hearing grossly normal Neck: Supple, trachea midline, no mass, no TM Heart: RRR, no rub/heave Lungs: Clear bilaterally, unlabored Abd: Soft, (+) BS, non-tender Ext: 1+ LE edema Neuro: No tremor/myoclonus Skin: warm and dry, no rash Access: RIJ TDC with clean dressing intact LABS: Recent Labs 08/08/24 0017 08/09/24 0035 08/10/24 0035 WBC 7.6 7.7 6.0 HGB 8.7* 8.1* 7.8* HCT 28.9* 26.6* 26.2* MCV 95.7 94.7 95.6 PLT 118* 108* 95* No results found for: IRON, TIBC, FERRITIN No results found for: [id number], FOLATE Recent Labs 08/08/24 0017 08/09/24 0035 08/09/24 0613 08/10/24 0035 08/10/24 0735 NA 134* 136 -- 138 -- K 3.7 4.3 -- 4.2 -- CL 100 105 -- 102 -- CO2 32* 30 -- 33* -- BUN 14 22* -- 25* -- CREATININE 1.51* 2.30* -- 2.85* -- GLUCOSE 293* 69* 216* 110* 61* CALCIUM 6.9* 6.9* -- 6.6* -- MG 1.7 1.8 -- 1.8 -- PHOS 2.1* 4.1 -- 4.5 -- ANIONGAP 2* 1* -- 2* -- Lab Results Component Value Date CALCIUM 6.6 (L) 08/10/2024 CAION 3.70 (L) 08/04/2024 PHOS 4.5 08/10/2024 No components found for: [id number] Diagnostic Studies: CXR 08/08 Findings: Right IJ tunneled dialysis catheter with tip near the cavoatrial junction. Cardiomediastinal silhouette and pulmonary vasculature are within normal limits. Basilar predominant pulmonary interstitial opacities with hazy obscuration of the lung bases. No sizable pneumothorax. Impression: Basilar predominant interstitial edema/infiltrates with right greater than left pleural effusions, mildly worsened in the left lung base compared to prior study. Personally reviewed available data [labs, MARS, radiologic studies, and electronic records]. Parts of assessment/plan may have been copied from prior entry and amended as needed. It reflects full evaluation and pathophysiology of processes involved. * Khai Espana, DO - 08/10/2024 7:44 AM EDT Med Team Progress Note Sandy Deng : 1960(63 y.o.) Date: August 10, 2024 Med Team: Frank Attending: Dr. De La Garza Chief Complaint: sepsis Subjective: Sandy Deng is a 63 yo F with a PMH of COPD, diabetic neuropathy, hx of NSTEMI, stage 4 CKD (on HD TTS), and Type 1 diabetes. Initially patient presented to [facility] on 07/23 with acute respiratory distress and acute delirium. She was hypoxic and hypercapnic and COVID pos on 07/24. Required intubation. CT showed acute right sided SDH, which is tiny, stable, and likely an incidental finding requiring no acute intervention. She reportedly had a fall 1 month ago from bed. states she hit her head on the nightstand. Pt was then transferred to [facility]. Initial infectious workup returned with CTX-M Pseudomonas and S aureus identified on pneumonia PCR. Patient went into septic shock, requiring pressors, now resolved. Patient no longer on antibiotics. Patient saturating well on 3-4L NC. Home O2 requirement of 3L. - Overnight, there were concerns for new-onset confusion. This may be due to lack of proper sleep due to staff overnight of 08/08 during hypoglycemic episode resulting in several naps throughout day of 08/09. - Currently, patient is alert and oriented x3. Pt is at baseline mentation and understands the planPt reports mild SOB. Mild nasal congestion is improved. No phlegm production noted. Continues to saturate well on home oxygen 3-4 L NC. Pt denies headache, chest pain, nausea, and abdominal pain. UTInoted on urinalysis, patient remains asymptomatic, placed on nitrofurantoin. PRN meds used in last 24hrs: none Review of Systems Constitutional: Positive for fatigue. Negative for chills and fever. HENT: Positive for congestion. Respiratory: Positive for shortness of breath. Negative for cough, chest tightness and wheezing. Cardiovascular: Negative for chest pain. Gastrointestinal: Negative for diarrhea and nausea. Musculoskeletal: Negative. Neurological: Negative. Negative for headaches. Scheduled Meds:busPIRone, 7.5 mg, Oral, BID fluticasone, 2 spray, Each Nostril, Daily gabapentin, 200 mg, Oral, BID Glycopyrrolate-Formoterol, 2 puff, Inhalation, BID heparin, 5,000 Units, SubCUTAneous, 2 times per day insulin glargine, 3 Units, SubCUTAneous, Nightly insulin lispro, 0-12 Units, SubCUTAneous, TID WC And insulin lispro, 0-12 Units, SubCUTAneous, Nightly ipratropium-albuterol, 3 mL, Nebulization, TID [Held by provider] metoprolol tartrate, 50 mg, Oral, BID mirtazapine, 7.5 mg, Oral, Nightly nitrofurantoin (macrocrystal-monohydrate), 100 mg, Oral, BID pantoprazole, 40 mg, Oral, Nightly Or pantoprazole (ProtoNix) 40 mg in sodium chloride (PF) 0.9 % 10 mL injection, 40 mg, IntraVENous, Nightly [Held by provider] predniSONE, 40 mg, Oral, Daily sodium chloride 0.9%, 10 mL, IntraCATHeter, q12h Objective: BP 131/52 (BP Location: Left arm, Patient Position: Lying) Pulse 88 Temp (!) 35.9 C (96.7 F) (Temporal) Resp 24 Ht 5' 5.98 (1.676 m) Wt 126 lb 8.7 oz (57.4 kg) SpO2 93% BMI 20.43 kg/m Physical Exam Constitutional: Appearance: Normal appearance. HENT: Head: Normocephalic and atraumatic. Eyes: Pupils: Pupils are equal, round, and reactive to light. Cardiovascular: Rate and Rhythm: Normal rate and regular rhythm. Pulmonary: Breath sounds: Normal breath sounds. Abdominal: General: Bowel sounds are normal. Palpations: Abdomen is soft. Neurological: General: No focal deficit present. Mental Status: She is alert and oriented to person, place, and time. Select Labs within last 24 hours Auto WBC Date Value Ref Range Status 08/10/2024 6.0 3.6 - 10.7 10*3/uL Final Hemoglobin Date Value Ref Range Status 08/10/2024 7.8 (L) 11.7 - 16.0 g/dL Final Hematocrit Date Value Ref Range Status 08/10/2024 26.2 (L) 35.0 - 47.0 % Final Platelets Date Value Ref Range Status 08/10/2024 95 (L) 140 - 440 10*3/uL Final MCV Date Value Ref Range Status 08/10/2024 95.6 77.0 - 99.0 fL Final SODIUM Date Value Ref Range Status 08/10/2024 138 135 - 145 mmol/L Final POTASSIUM Date Value Ref Range Status 08/10/2024 4.2 3.5 - 5.1 mmol/L Final CHLORIDE Date Value Ref Range Status 08/10/2024 102 98 - 107 mmol/L Final CARBON DIOXIDE Date Value Ref Range Status 08/10/2024 33 (H) 22 - 30 mmol/L Final UREA NITROGEN Date Value Ref Range Status 08/10/2024 25 (H) 7 - 17 mg/dL Final CREATININE Date Value Ref Range Status 08/10/2024 2.85 (H) 0.52 - 1.04 mg/dL Final GLUCOSE Date Value Ref Range Status 08/10/2024 110 (H) 70 - 100 mg/dL Final CALCIUM Date Value Ref Range Status 08/10/2024 6.6 (L) 8.4 - 10.4 mg/dL Final MAGNESIUM Date Value Ref Range Status 08/10/2024 1.8 1.6 - 2.3 mg/dL Final PHOSPHORUS Date Value Ref Range Status 08/10/2024 4.5 2.5 - 4.5 mg/dL Final No results found for: AST, ALT, PROT, BILITOT, ALKPHOS, INR, APTT, LIPASE No results found for: CKTOTAL, CKMB, TROPONINI No results found for: PROCAL, CHOL, TRIG, HDL, TSH, VITD25, HGBA1C, VANCOTROUGH Assessment and Plan: Mild COPD exacerbation vs Upper Respiratory Infection - concern for recent aspiration in setting of dysphagia - Patient reports SOB and mild nasal congestion, improved from previous - Continues to saturate well on 3-4 L NC, Lungs CTA - Patient noted to have brief 2-3 second run of NSVT x2 - Respiratory panel negative - Chest x-ray (08/08) - Basilar predominant interstitial edema/infiltrates with right greater than left pleural effusions, mildly worsened in the left lung base compared to prior study - low concern for infectious cause - pt afebrile, leukocyte count normal Plan: - Continue Flonase, Duo nebs TID, and Mucinex PRN - Maintain O2 saturation between 88-92% 2/2 COPD Septic shock 2/2 Polymicrobial PNA; Per ID stewardship, Tx with mary ann 07/27-08/02 Covid pos at OSH, micro testing pos for non-COVID coronavirus on admission Acute on Chronic Hypoxemic, Hypercapnic Resp failure - extubated 07/30 - Initial infectious workup returned with CTX-M Pseudomonas and S aureus - Procal 0.16 (08/05) - Lactic acid .5 (08/05) - WBC 6.5 (08/06) - Off antibiotics Plan: - Continue spirometry - Maintain O2 saturation between 88-92% 2/2 COPD Trace Subdural Hematoma, Right-sided, Stable - notes patient fell about 1 month prior to admission and hit head - CT revealed trace R SDH Plan: - Stable no follow up needed UMA on CKD stage 4, resolved - Cr (08/10) 2.85 from 2.3 and 1.51 - last visit (04/26) Cr 2.4 eGFR 20, 24 hr akbxxng=4897 mg. - On admit, (07/26) Cr 4.56, CRRT initiation for severe acidosis in setting of hemodynamic instability 07/26-08/01. - Transitioned to intermittent HD on 08/03 - bladder scan 08/09 revealed retention of 270 ml of urine, johnson placed - pt has TDC - plan TTS dialysis schedule, will continue to monitor for renal recovery - nephro following; pt received IV lasix 80 mg (08/09) Plan: - TTS dialysis schedule (HD today) -Continue strict I/Os and daily renal function panel to monitor for recovery Urinary Tract Infection - urinalysis with moderate bacteria, extra turbid clarity, and ,many WBC clumps - Patient noted to have AMS overnight - Patient asymptomatic at this time Plan: - Started Nitrofurantoin 100 mg for 3 days duration Hypertension - last BP 131/52 - HD planned for tomorrow (08/07) - hold off on starting ACEi/ARB due to UMA - Will continue to monitor Dysphagia - Speech therapy evaluated at bedside; recommend continuation of acute [employer] diet - Monitor adequacy of PO for need to initiate Magic Cup - Document % meal intakes under I/O flowsheet - Monitor nutrition status, intakes, wt trends, labs, and fluid balance Acute on chronic anemia - received 1 unit of blood in morning (08/06) - Hgb 7.8 108 AM - Remains clinically stable Plan: - Continue to monitor Hgb and transfuse per protocol Hgb <7 T1DM - POCT glucose 65 - Pt had hypoglycemic episode (08/08) requiring 2 doses of 1/2 amp of D5, 1 cup of thickened apple juice and 1 mg IM glucagon to resolve - Patient receiving increased Lantus 5 units and medium dose SSI since 08/06 - Lantis reduced to 3 units Plan: - Continue to monitor with POC glucose checks -Awaiting results C3 and C4 complement [facility] for today at 2 pm Associated attestation - Fly De La Garza DO - 08/10/2024 2:47 PM EDT I saw and evaluated the patient. I agree with the findings and plan of care as documented in the resident's note, except as noted in Green text. Patient seen and examined personally during bedside teaching rounds (Date of Service: 08/10/24) [place]rell Changes to Care Plan: -added back on beta darwin at discharge-HR in the 80s -patient and say she is a type 1 diabetic, but on 3 units here with meal time, and often mildly hypoglycemic. We took off prandial insulin for [facility], but kept on the lantus in the case she was type I. -[facility]. 7AM-5PM: contact resident on [facility] (find by hovering over attending's name on left side of patient's chart) 5PM-7AM: contact MAKI stanton * Sada Fernandez, RICKY - 08/09/2024 4:36 PM EDT Nutrition Assessment Type and Reason for Visit: Reassess Nutrition Recommendations/Plan: Continue current diet per [employer]. Per MNT, will discontinue Ensure d/t thickened liquids. Monitor adequacy of PO for need to initiateMagic Cup. Please document % meal intakes under I/O flowsheet. Monitor nutrition status, intakes, wt trends, labs, and fluid balance. RD will continue to follow. Malnutrition Assessment: Malnutrition Status: At risk for malnutrition (Comment) Context: Acute Illness Findings of the 6 clinical characteristics of malnutrition: Energy Intake: Mild decrease in energy intake (Comment) (improving) Weight Loss: Unable to assess Body Fat Loss: No significant body fat loss Muscle Mass Loss: No significant muscle mass loss Fluid Accumulation: Mild Extremities, Generalized Digital Archivist Strength: Not Performed Nutrition Assessment: Pt PMH of COPD, diabetic neuropathy, hx of NSTEMI, stage 4 CKD (on HD TTS), and Type 1 diabetes. Initially patient presented to [facility] on 07/23 with acute respiratory distress and acute delirium. She was hypoxic and hypercapnic and COVID pos on 07/24. Required intubation. CT showed acute right sided SDH, which is tiny, stable, and likely an incidental finding requiring no acute intervention. She reportedly had a fall 1 month ago from bed. states she hit her head on the nightstand. Pt was then transferred to [facility]. Initial infectious workup returned with CTX-M Pseudomonas and S aureus identified on pneumonia PCR. Patient went into septic shock, requiring pressors, now resolved. Patient no longer on antibiotics. Patient saturating well on 3-4L NC. Home O2 requirement of 3L. Pt first advanced to PO diet 08/01; advanced to Regular/nectar thick per [employer] recs today. Pt was sleepingat time of RD assessment and did not wake to name call. No trays at bedside to assess. Estimated Daily Nutrient Needs: Energy Requirements Based On: Kcal/kg Weight Used for Energy Requirements: [place] Weight for Energy Calculation (kg): 59 kg Total Energy Requirements (kcals/day): 25-30 kcals/kg = 3044-9505 kcals/day Weight Used for Protein Requirements: [place] Weight in Kg Used for Protein Requirements: 59 kg Estimated Total Protein (g/day): 1.2-1.4g protein/kg IBW = 71-83g protein/day Estimated Daily Total Fluid (ml/day): 1475 mls Nutrition Related Findings: +BS. +I&O. +2 generalized edema, +2 BLE, moderate BUE. Hipolito 16 Wound Type: None (generalized bruising) BMP: Recent Labs 08/07/24 0106 08/08/24 0017 08/09/24 0035 08/09/24 0613 NA 134* 134* 136 -- K 4.2 3.7 4.3 -- CL 102 100 105 -- CO2 31* 32* 30 -- BUN 23* 14 22* -- CREATININE 2.07* 1.51* 2.30* -- GLUCOSE 141* 293* 69* 216* CALCIUM 6.9* 6.9* 6.9* -- MG 1.9 1.7 1.8 -- PHOS 3.7 2.1* 4.1 -- HEPATIC: No results for input(s): AST, ALT, BILITOT, ALKPHOS in the last 72 hours. No lab exists for component: ALB Lab Results Component Value Date HGBA1C 6.2 (H) 07/26/2024 Current Nutrition Therapies: Adult diet Regular; Mildly Thick ([place]) Current Oral Intake Average Meal Intake: 76-100% (per flowsheet) Average Supplements Intake: None Ordered Anthropometric Measures: Height: 167.6 cm (5' 5.98) Current Body Weight: 57.2 kg (126 lb) (08/07) Weight Source: Bed Scale Admission Body Weight: 48 kg (105 lb 13.1 oz) [place] Body Weight (lbs) (Calculated): 130 lbs [place] Body Weight (Kg) (Calculated): 59 kg % [place] Body Weight (Calculated): 105.1 % BMI (kg/m2) (Calculated): 20.3 BMI Categories: Normal Weight (BMI 18.5-24.9) Nutrition Diagnosis: Inadequate oral intake related to cognitive or neurological impairment as evidenced by intake 0-25% Nutrition Interventions: Nutrition Education/Counseling: No recommendation at this time Coordination of Nutrition Care: Continue to monitor while inpatient Goals: Previous Goal Met: Progressing toward Goal(s) Goals: Meet at least 75% of estimated needs, by next RD assessment Nutrition Monitoring and Evaluation: Behavioral-Environmental Outcomes: None Identified Food/Nutrient Intake Outcomes: Food and Nutrient Intake, Supplement Intake, Diet Advancement/Tolerance Physical Signs/Symptoms Outcomes: Biochemical Data, Chewing or Swallowing, GI Status, Fluid Status or Edema, Nutrition Focused Physical Findings, Skin, Weight Discharge Planning: Too soon to determine Sada Fernandez RD, LD Contact: [phone] * Saroj Gaffney MD - 08/09/2024 1:34 PM EDT Images from the original note were not included. Nephrology Progress Note Patient: Sandy Deng Room number: [id number] B Date of Admit: 07/26/2024 LOS: 14 days Admitting physician: Ino Conte MD Referring physician: Fly De La Garza DO Outpatient X Ray Inspector: Christy Huerta DO Assessment/Plan: 63 year old female with PMH of CKD 4, DM type 1, HTN, CAD, COPD (3L O2 baseline), admitted 07/26 with resp distress and delirium, Covid positive. CT head showed a small right SDH. Consulted for UMA onCKD 4., required CRRT 07/26- 08/01 for severe acidosis in setting of hemodynamic instability. Now transitioned to iHD. #Nonoliguric UMA: Now HD dependent. Baseline Cr has been 2.4-2.8, last (04/26) Cr 2.4 eGFR , 24 ecvfytbcz=7249 mg. -Suspected ATN in setting of infection/HD instability on arrival -FeNa 1.2% on arrival -c3 56, c4 10 (both low) 07/27, ?IRGN -Currently on TTS dialysis schedule Lytes/Acid-base: Na 136, K 4.3, bicarb 30 Ca/Phos: Ca 6.9 (Alb 2.7), Phos 4.1 HTN/Volume status: #Acute on chronic hypoxic respiratory failure #Coronavirus infection #Pneumonia #Bilateral pleural effusions #Septic shock- resolved -Completed course of meropenem -BP now normo-hypertensive -CXR 08/08 reviewed and notable for pulm edema and bilateral pleural effusions. -UOP 475 ccs/24 hrs Anemia: Hgb 8.1 Access: RIJ TDC 07/29 Recommendations: -Ordered 80 mg IV lasix x1 -Tentatively plan for next HD tomorrow 08/10 -Continue strict I/Os and daily renal function panel to monitor for recovery -Checking UA and repeating complements; may need further workup pending results Thank you for this consult, we will continue to follow. Please call or page if any questions [facility] Pager: [phone] Office: [phone]. Office Subjective: Interval history/events: Seen at bedside late this AM. Patient confused, pleasant. Does note shortness of breath worse with lying flat. Past Medical History: Past Medical History: Diagnosis Date COPD (chronic obstructive pulmonary disease) (HCC) Diabetic neuropathy (HCC) Hyperlipidemia Myocardial infarct (HCC) Stage 4 chronic kidney disease (HCC) Type 1 diabetes (HCC) Medications: MAR reviewed. busPIRone, 7.5 mg, Oral, BID fluticasone, 2 spray, Each Nostril, Daily gabapentin, 200 mg, Oral, BID Glycopyrrolate-Formoterol, 2 puff, Inhalation, BID heparin, 5,000 Units, SubCUTAneous, 2 times per day insulin glargine, 3 Units, SubCUTAneous, Nightly insulin lispro, 0-12 Units, SubCUTAneous, TID WC And insulin lispro, 0-12 Units, SubCUTAneous, Nightly ipratropium-albuterol, 3 mL, Nebulization, TID [Held by provider] metoprolol tartrate, 50 mg, Oral, BID mirtazapine, 7.5 mg, Oral, Nightly pantoprazole, 40 mg, Oral, Nightly Or pantoprazole (ProtoNix) 40 mg in sodium chloride (PF) 0.9 % 10 mL injection, 40 mg, IntraVENous, Nightly [Held by provider] predniSONE, 40 mg, Oral, Daily sodium chloride 0.9%, 10 mL, IntraCATHeter, q12h Review of Systems: All other ROS negative except those noted above. Physical Exam: Vitals: 08/09/24 0806 08/09/24 0905 08/09/24 1023 08/09/24 1322 BP: 131/52 (!) 130/49 150/68 BP Location: Right arm Left arm Right arm Patient Position: Lying Sitting Lying Pulse: 77 76 84 89 Resp: 14 22 20 Temp: 36.4 C (97.6 F) 36.3 C (97.4 F) 36.5 C (97.7 F) TempSrc: Temporal Temporal Temporal SpO2: 98% 97% 95% 100% Weight: Height: Admission weight: 48 kg (105 lb 13.1 oz) Wt Readings from Last 3 Encounters: 08/07/24 57.4 kg (126 lb 8.7 oz) I/O last 3 completed shifts: In: 300 (5.2 mL/kg) [I.V.:300 (5.2 mL/kg)] Out: 725 (12.6 mL/kg) [Urine:725 (0.4 mL/kg/hr)] Weight: 57.4 kg Net IO Since Admission: 3,316.31 mL [08/09/24 1334] General: A&O x 3, NAD, frail HEENT: Sclera clear, EOMI, MMM, Nose/ears/hearing grossly normal Neck: Supple, trachea midline, no mass, no TM Heart: RRR, no rub/heave Lungs: Clear bilaterally, unlabored Abd: Soft, (+) BS, non-tender Ext: 1+ LE edema Neuro: No tremor/myoclonus Skin: warm and dry, no rash Access: RIJ TDC with clean dressing intact LABS: Recent Labs 08/07/24 0106 08/08/24 0017 08/09/24 0035 WBC 8.0 7.6 7.7 HGB 8.1* 8.7* 8.1* HCT 26.7* 28.9* 26.6* MCV 94.3 95.7 94.7 PLT 128* 118* 108* No results found for: IRON, TIBC, FERRITIN No results found for: [id number], FOLATE Recent Labs 08/07/24 0106 08/08/24 0017 08/09/24 0035 08/09/24 0613 NA 134* 134* 136 -- K 4.2 3.7 4.3 -- CL 102 100 105 -- CO2 31* 32* 30 -- BUN 23* 14 22* -- CREATININE 2.07* 1.51* 2.30* -- GLUCOSE 141* 293* 69* 216* CALCIUM 6.9* 6.9* 6.9* -- MG 1.9 1.7 1.8 -- PHOS 3.7 2.1* 4.1 -- ANIONGAP 1* 2* 1* -- Lab Results Component Value Date CALCIUM 6.9 (L) 08/09/2024 CAION 3.70 (L) 08/04/2024 PHOS 4.1 08/09/2024 No components found for: [id number] Diagnostic Studies: CXR 08/08 Findings: Right IJ tunneled dialysis catheter with tip near the cavoatrial junction. Cardiomediastinal silhouette and pulmonary vasculature are within normal limits. Basilar predominant pulmonary interstitial opacities with hazy obscuration of the lung bases. No sizable pneumothorax. Impression: Basilar predominant interstitial edema/infiltrates with right greater than left pleural effusions, mildly worsened in the left lung base compared to prior study. Personally reviewed available data [labs, MARS, radiologic studies, and electronic records]. Parts of assessment/plan may have been copied from prior entry and amended as needed. It reflects full evaluation and pathophysiology of processes involved. * RENATO Aguiar - 08/09/2024 11:45 AM EDT Images from the original note were not included. Speech-Language Pathology SPEECH LANGUAGE PATHOLOGY [facility] Dysphagia Treatment Note Patient Name: Sandy Deng Evaluation Date: 08/09/2024 Date of : 1960 Admission Date: 07/26/2024 4:17 PM Age: 63 y.o. Room/Bed: [address]-[facility] B Subjective Patient was able to awaken but appeared somnolent. Family and RN reported patient with decreased POintake with current diet restrictions. Current Diet: Dietary Orders (From admission, onward) Start Ordered 08/04/24 1610 Adult diet Dysphagia - Pureed; Mildly Thick ([place]) Diet effective now Comments: Medications crushed and placed in pureed foods. Question Answer Comment Diet type Dysphagia - Pureed Fluid consistency Mildly Thick ([place]) 08/04/24 1611 08/03/24 1639 Supplement:PM Snack, HS Snack; Vanilla Ensure High Protein Until discontinued Question Answer Comment Frequency PM Snack Frequency HS Snack Select supplement: Vanilla Ensure High Protein 08/03/24 1638 Aspiration Precautions: - Upright positioning for all PO intake - Slow rate of intake - Small bites + single small sips - 1:1 Assistance - Swallow x 2 per bolus Oxygen: Oxygen Therapy: Supplemental oxygen O2 Delivery Method: Nasal cannula O2 Flow Rate (L/min): 4 L/min Pain: Pt denies any current pain. PPE Worn: gloves Objective & Assessment Dysphagia Treatment # of Activities: 1 Dysphagia Activity 1: trial diet advancement Patient was fed puree, minced/moist solids, hard solids, and mildly thick liquid via cup. Inconsistent anterior spillage noted. Mastication was prolonged but adequate, and oral clearance was achieved. No s/s of aspiration with any PO presented but patient is a known silent aspirator. Ready for dietadvancement. Plan & Recommendations Continue acute MULTIFOCAL LENS ASSEMBLER therapy per initial plan of care and established goals. Recommend Regular solids and Mildly thick liquids and meds whole in puree and the following precautions: - Upright positioning for all PO intake - Slow rate of intake - Small bites + single small sips - 1:1 Assistance - Swallow x 2 per bolus D/C Recommendations: ongoing speech therapy at next level of care Education Education Given: safety, diet recommendations Given To: patient, spouse and sister, and RN Response: needs reinforcement Goals Patient Stated Goal: none stated by patient but sister reported that patient has been requesting potato chips Encounter Problems Encounter Problems (Active) Swallowing Patient will tolerate recommended food and liquid consistencies without clinical signs and symptomsof aspirations (Progressing) Start: 07/31/24 Expected End: 08/15/24 Patient will participate in repeat clinical dysphagia evaluation (Completed) Start: 07/31/24 Expected End: 08/02/24 Resolved: 08/01/24 Patient will tolerate the least restrictive diet consistency to allow for safe consumption of dailymeals (Progressing) Start: 08/01/24 Expected End: 08/15/24 Patient will participate in instrumental assessment of swallowing as appropriate (Completed) Start: 08/04/24 Expected End: 08/18/24 Resolved: 08/04/24 Patient will complete oropharyngeal strengthening exercises to improve swallow function (Not Addressed) Start: 08/04/24 Expected End: 08/18/24 Therapy Time MULTIFOCAL LENS ASSEMBLER Individual Minutes Time In: 1125 Time Out: 1135 Minutes: 10 Shanti Bianchi MA, CCC/MULTIFOCAL LENS ASSEMBLER * Amy Dorado, SLITTING AND SHIPPING SUPERVISOR - 08/09/2024 8:47 AM EDT Images from the original note were not included. PHYSICAL THERAPY [facility] Treatment Note Name/MRN: Sandy Deng ([id number]) Date of : 1960 Age: 63 y.o. Room/Bed: [facility]/3[facility] B Discharge Recommendation: IP Rehab Equipment Needed: No Other: tbd Assessment Pt min assist for bed mobility, mod assist for transfer and gait. Weakness and decrease endurance are most limiting factors. Rest breaks needed due to listed deficits. Wet, non-productive, encouragedI.S. use. Pt at risk for falls and is below her baseline. Rec rehab upon discharge to maximize independence. Subjective Pt in bed, agreeable to PT. Pain: Pt denies any current pain. Medical Precautions: No active isolations Proper PPE donned/doffed in accordance with facility standards. Fall Risk: Bunn Fall Risk Score: 70 (High Risk) Precautions/Restrictions: Lines/Drains/Airways: PIV, 3 L O2 NC Family/Caregiver Present: none Objective Bed Mobility Supine to sit: Min Assist Rolling to right: Min Assist Scooting: Min Assist HOB elevated, bed rails and slide sheet used. Cues for sequencing. Fatigues quickly. Transfers/Mobility Sit to stand: Mod Assist Stand to sit: Mod Assist X1 from EOB. Poor eccentric control. Device(s) used: Used therapist for support Ambulation Ambulation 1 Assistive device(s) used: Used therapist for support Assist level: Mod Assist Distance (ft): 4ft bed>chair Quality of gait: slow amanda, instability through all phases, assist/cues with weight shifting, fatigues quickly, small steps Balance During Session: Posture: seated at EOB, UE support, flexed posture, cues for posture awareness, pt with difficulty maintaining due to weakness, min assist for balance and able to progress to SBA for short periods. Standing with this SLITTING AND SHIPPING SUPERVISOR directly in front of pt, postural sway, BLE weakness and instability, min/mod assist for balance. Exercises Exercises Quad Sets: Adebayo x10 reps Heelslides: Adebayo x10 reps Gluteal Sets: Adebayo x10 reps Hip Abduction: Adebayo x10 reps Knee Long Arc Quad: Adebayo x10 reps Ankle Pumps: and ankle circles Adebayo x10 reps Comments: increase time, rest breaks needed due to fatigue. Other exercises Other exercises?: Yes Other exercises 1: I.S. x 10 reps, 1000mL. Wet, non-productive cough Plan Continue acute PT per plan of care. Safety/Education Safety Safety Devices in place: call light within reach, left in chair, chair alarm in place, gait belt, and patient at risk for falls Restraints: No Education Education Given To: patient Education Provided: PT Goals, Gait Training, Plan of Care, Home Exercise Program, Transfer Training, Fall Prevention Education, Discharge Recommendations, Benefits of Increasing Activity, and Breathing Techniques Education Method: Verbal Barriers to Learning: None Education Outcome: Verbalized Understanding and Continued Education Needed Outcome Measures AM-PAC AM-PAC Inpatient Mobility Raw Score (No Stairs) : 12 JH-HLM JH-HLM Score: Transferred to chair/commode Goals Patient Stated Goal: to get stronger Encounter Problems Encounter Problems (Active) Balance Patient will maintain static standing balance for 3 minutes with min assist in order to demonstratedecreased risk of falling. (Progressing) Start: 08/03/24 Expected End: 08/31/24 Patient will maintain static sitting balance for 3 minutes with supervision in order to demonstrateimproved postural control and prepare for out of bed mobility. (Progressing) Start: 08/03/24 Expected End: 08/31/24 Mobility Patient will ambulate 50 feet with min assist and rolling walker in order to improve safety and independence with mobility. (Progressing) Start: 08/03/24 Expected End: 08/31/24 Transfers Patient will perform bed mobility with supervision in order to improve independence and prepare forout of bed mobility. (Progressing) Start: 08/03/24 Expected End: 08/31/24 Patient will complete functional transfer with rolling walker with min assist in order to prepare for ambulation. (Progressing) Start: 08/03/24 Expected End: 08/31/24 Therapy Time Individual Co-treatment Time In 08 Time Out 0847 Minutes 26 Timed Code Treatment Minutes: 26 Minutes (tp; fa) Amy Dorado, TITA * Khai Ye Jovi, DO - 08/09/2024 8:03 AM EDT Med Team Progress Note Sandy Deng : 1960(63 y.o.) Date: August 09, 2024 Med Team: Frank Attending: Dr. De La Garza Chief Complaint: Brain Bleed Subjective: Sandy Deng is a 63 yo F with a PMH of COPD, diabetic neuropathy, hx of NSTEMI, stage 4 CKD (on HD TTS), and Type 1 diabetes. Initially patient presented to [facility] on 07/23 with acute respiratory distress and acute delirium. She was hypoxic and hypercapnic and COVID pos on 07/24. Required intubation. CT showed acute right sided SDH, which is tiny, stable, and likely an incidental finding requiring no acute intervention. She reportedly had a fall 1 month ago from bed. states she hit her head on the nightstand. Pt was then transferred to [facility]. Initial infectious workup returned with CTX-M Pseudomonas and S aureus identified on pneumonia PCR. Patient went into septic shock, requiring pressors, now resolved. Patient no longer on antibiotics. Patient saturating well on 3-4L NC. Home O2 requirement of 3L. - Overnight, pt became hypoglycemic to glucose 69 and capillary glucose <50. Pt was given 1/2 amp of D5 2x and 1 cup of thickened apple juice and 1 mg IM glucagon. Glucose returned to 216 at 0639.Post void residual noted at 270 ml and Johnson was placed. - Currently, patient is sleeping in chair comfortably. She reports SOB and mild nasal congestion. No phlegm production noted. Continues to saturate well on 4 L NC. Pt denies headache, chest pain, nausea, and abdominal pain. CXR noted bibasilar predominant interstitial edema/infiltrates with right greater than left pleural effusions, mildly worsened in the left lung base compared to prior study. She continues to note fatigue and weakness, understandable given hospital course. PRN meds used in last 24hrs: dextrose 5% infusion, IV dextrose 50 % 12.5 g, glucagon 1 mg Review of Systems Constitutional: Negative. HENT: Negative. Respiratory: Positive for cough and shortness of breath. Cardiovascular: Negative. Gastrointestinal: Negative. Musculoskeletal: Negative. Skin: Negative. Neurological: Negative. Negative for headaches. Scheduled Meds:busPIRone, 7.5 mg, Oral, BID fluticasone, 2 spray, Each Nostril, Daily gabapentin, 200 mg, Oral, BID Glycopyrrolate-Formoterol, 2 puff, Inhalation, BID heparin, 5,000 Units, SubCUTAneous, 2 times per day insulin glargine, 5 Units, SubCUTAneous, Nightly insulin lispro, 0-12 Units, SubCUTAneous, TID WC And insulin lispro, 0-12 Units, SubCUTAneous, Nightly ipratropium-albuterol, 3 mL, Nebulization, TID [Held by provider] metoprolol tartrate, 50 mg, Oral, BID mirtazapine, 7.5 mg, Oral, Nightly pantoprazole, 40 mg, Oral, Nightly Or pantoprazole (ProtoNix) 40 mg in sodium chloride (PF) 0.9 % 10 mL injection, 40 mg, IntraVENous, Nightly [Held by provider] predniSONE, 40 mg, Oral, Daily sodium chloride 0.9%, 10 mL, IntraCATHeter, q12h Objective: BP 131/52 (BP Location: Right arm, Patient Position: Lying) Pulse 77 Temp 36.4 C (97.6 F) (Temporal) Resp 14 Ht 5' 5.98 (1.676 m) Wt 126 lb 8.7 oz (57.4 kg) SpO2 98% BMI 20.43 kg/m Physical Exam Constitutional: Appearance: Normal appearance. Eyes: Pupils: Pupils are equal, round, and reactive to light. Cardiovascular: Rate and Rhythm: Normal rate and regular rhythm. Pulmonary: Breath sounds: Normal breath sounds. No wheezing. Abdominal: General: Bowel sounds are normal. Palpations: Abdomen is soft. Neurological: General: No focal deficit present. Mental Status: She is oriented to person, place, and time. Select Labs within last 24 hours Auto WBC Date Value Ref Range Status 08/09/2024 7.7 3.6 - 10.7 10*3/uL Final Hemoglobin Date Value Ref Range Status 08/09/2024 8.1 (L) 11.7 - 16.0 g/dL Final Hematocrit Date Value Ref Range Status 08/09/2024 26.6 (L) 35.0 - 47.0 % Final Platelets Date Value Ref Range Status 08/09/2024 108 (L) 140 - 440 10*3/uL Final MCV Date Value Ref Range Status 08/09/2024 94.7 77.0 - 99.0 fL Final SODIUM Date Value Ref Range Status 08/09/2024 136 135 - 145 mmol/L Final POTASSIUM Date Value Ref Range Status 08/09/2024 4.3 3.5 - 5.1 mmol/L Final CHLORIDE Date Value Ref Range Status 08/09/2024 105 98 - 107 mmol/L Final CARBON DIOXIDE Date Value Ref Range Status 08/09/2024 30 22 - 30 mmol/L Final UREA NITROGEN Date Value Ref Range Status 08/09/2024 22 (H) 7 - 17 mg/dL Final CREATININE Date Value Ref Range Status 08/09/2024 2.30 (H) 0.52 - 1.04 mg/dL Final GLUCOSE Date Value Ref Range Status 08/09/2024 216 (H) 70 - 100 mg/dL Final CALCIUM Date Value Ref Range Status 08/09/2024 6.9 (L) 8.4 - 10.4 mg/dL Final MAGNESIUM Date Value Ref Range Status 08/09/2024 1.8 1.6 - 2.3 mg/dL Final PHOSPHORUS Date Value Ref Range Status 08/09/2024 4.1 2.5 - 4.5 mg/dL Final No results found for: AST, ALT, PROT, BILITOT, ALKPHOS, INR, APTT, LIPASE No results found for: CKTOTAL, CKMB, TROPONINI No results found for: PROCAL, CHOL, TRIG, HDL, TSH, VITD25, HGBA1C, VANCOTROUGH Assessment and Plan: COPD exacerbation vs Upper Respiratory Infection - concern for recent aspiration in setting of dysphagia - Patient reports SOB and mild nasal congestion - Continues to saturate well on 3-4 L NC, Lungs CTA - Patient noted to have brief 2-3 second run of NSVT x2 - Respiratory panel negative - Chest x-ray (08/08) - Basilar predominant interstitial edema/infiltrates with right greater than left pleural effusions, mildly worsened in the left lung base compared to prior study Plan: - Continue Flonase, Duo nebs TID, and Mucinex PRN - Consider Prednisone taper if symptoms worsen - Maintain O2 saturation between 88-92% 2/2 COPD Septic shock 2/2 Polymicrobial PNA; Per ID stewardship, Tx with mary ann 07/27-08/02 Covid pos at OSH, micro testing pos for non-COVID coronavirus on admission Acute on Chronic Hypoxemic, Hypercapnic Resp failure - extubated 07/30 - Initial infectious workup returned with CTX-M Pseudomonas and S aureus - Procal 0.16 (08/05) - Lactic acid .5 (08/05) - WBC 6.5 (08/06) - Off antibiotics Plan: - Continue spirometry - Maintain O2 saturation between 88-92% 2/2 COPD Trace Subdural Hematoma, Right-sided, Stable - notes patient fell about 1 month prior to admission and hit head - CT revealed trace R SDH Plan: - Stable no follow up needed UMA on CKD stage 4, resolved - Cr (08/09) 2.3 from 1.51 - last (04/26) Cr 2.4 eGFR 20, 24 hr wyxggyk=1244 mg. - On admit, (07/26) Cr 4.56, CRRT initiation for severe acidosis in setting of hemodynamic instability 07/26-08/01. 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 - Diet order of Regular solids and Mildly thick liquids and meds whole in puree Acute on chronic anemia - received 1 unit of blood in morning (08/06) - Hgb 8.1 08/09 AM - Remains clinically stable Plan: - Continue to monitor Hgb and transfuse per protocol Hgb <7 T1DM - POCT glucose 144 - Pt had hypoglycemic episode overnight requiring 2 doses of 1/2 amp of D5, 1 cup of thickened apple juice and 1 mg IM glucagon to resolve - Patient receiving increased Lantus 5 units since 08/06 and medium dose SSI Plan: - Reduce Lantis to 3 units - Continue to monitor with POC glucose checks Disposition: Awaiting authorization to [facility] Associated attestation - Fly De La Garza DO - 08/09/2024 2:16 PM EDT I saw and evaluated the patient. I agree with the findings and plan of care as documented in the resident's note, except as noted in Green text. Patient seen and examined personally during bedside teaching rounds (Date of Service: 08/09/24) Cantrell Changes to Care Plan: -has been experiencing some congestion -we ordered respiratory viral panel which was negative. -was a concern of aspiration event 2 days ago, we did order a CXR which appeared mostly stable whencompared to 08/05. Possibly mild worsening of left lung base. -No other acute signs of infectious process (afebrile, no leukocytosis, stable O2 requirement) -we will consider antibiotics if there becomes more of a concern for infectious process, monitor for now. 7AM-5PM: contact resident on [facility] Med A (find by hovering over attending's name on left side of patient's chart) 5PM-7AM: contact MAKI [place] * Jamey Muro OT - 08/08/2024 10:44 AM EDT Images from the original note were not included. OCCUPATIONAL THERAPY [facility] Treatment Note Name/MRN: Sandy Deng ([id number]) Date of : 1960 Age: 63 y.o. Room/Bed: W3-339/W3-339 B Discharge Recommendation: IP Rehab Other: Continue to assess pending progress. Assessment Pt is slowly progressing toward therapy goals. Pt is currently limited by diminished endurance, strength, and balance. Pt is currently Min A for STS from recliner x 2 trails. Pt took 4 forward and back carbajal steps with Min-Mod A, pt noted to have retro lean with steps, pt stated she is also fatiguedfrom finished with PT. Pt is Min A for stand steps from recliner to bed, pt required a seated rest break due to decreased endurance. Pt performed AROM BUE exercises in all planes x 10 reps. Pt is also Mod A for sit to supine in bed, due to pt requesting to return to bed despite max encouragement tosit in recliner. Continuing to recommend IPR at discharge to address functional mobility. Subjective RN cleared for therapy. Pt sitting in recliner upon OT arrival; agreeable to OT treatment. Pt supine in bed at end of session with call light with reach, bed alarm on, and present. Pain: 0-10 pain scale: 5-6/10 Location: back Medical Precautions: No active isolations Proper PPE donned/doffed in accordance with facility standards. Fall Risk: Bunn Fall Risk Score: 70 (High Risk Precautions/Restrictions: Lines/Drains/Airways: PIV, 3 L O2 NC Family/Caregiver Present: spouse Objective Bed Mobility Sit to supine: Mod Assist, Pt requires assistance to Lift LE's into bed due to fatigue at end of session. Transfers/Mobility Sit to stand: Min Assist Stand to sit: Min Assist Stand step: Min Assist Standing balance: Min Assist, Mod Assist Pt is currently Min A for STS from recliner x 2 trails. Pt took 4 forward and back carbajal steps with Min-Mod A w/FWW, pt noted to have retro lean with steps, pt stated she is also fatigued from finished with PT. Pt is Min A for stand steps from recliner to bed, pt required a seated rest break due to decreased endurance. Pt noted to be SOB with all functional mobility, requiring rest breaks. Device(s) used: Front wheeled walker Exercise Pt performed AROM BUE exercises in all planes x 10 reps. Plan Continue acute OT per plan of care. Safety/Education Safety Safety Devices in place: call light within reach, left in bed, bed alarm in place, gait belt, patient at risk for falls, and nurse notified Restraints: No Education Education Given To: patient and spouse Education Provided: OT Role, Plan of Care, Transfer Training, Energy Conservation, Equipment, Fall Prevention Education, and Discharge Recommendations Education Method: Verbal Barriers to Learning: None Education Outcome: Verbalized Understanding and Continued Education Needed AM-PAC AM-PAC Inpatient Daily Activity Raw Score: 17 ADL Inpatient CMS G-Code Modifier: CK Goals Patient Stated Goal: To feel better. Encounter Problems Encounter Problems (Active) Balance Patient will maintain dynamic standing balance for 5-10 minutes with min assist in order to demonstrate decreased risk of falling. (Progressing) Start: 08/02/24 Expected End: 08/30/24 Bathing Patient will utilize adaptive techniques to bathe body with Min A (Not Addressed) Start: 08/02/24 Expected End: 08/30/24 Dressing Upper Extremities Patient will complete upper body dressing with SBA (Not Addressed) Start: 08/02/24 Expected End: 08/30/24 Dressings Lower Extremities Patient will dress lower body with Min A (Initiated) Start: 08/02/24 Expected End: 08/30/24 Mobility Patient will demonstrate functional ambulation with Mod A (Progressing) Start: 08/02/24 Expected End: 08/30/24 Transfers Patient will complete functional transfer with least restrictive device with min assist in order toprepare for ambulation. (Goal Met) Start: 08/02/24 Expected End: 08/30/24 Resolved: 08/06/24 Patient will perform bed mobility with CGA in order to improve independence and prepare for out of bed mobility. (Progressing) Start: 08/02/24 Expected End: 08/30/24 Therapy Time Individual Co-treatment Time In 953 Time Out 1019 Minutes 25 Timed Code Treatment Minutes: 20 Minutes (FA-1) Variance: 5 (Medical staff present) Jamey Muro OT * Saroj Amezcua, PT - 08/08/2024 8:59 AM EDT Images from the original note were not included. PHYSICAL THERAPY [facility] Treatment Note Name/MRN: Sandy Deng ([id number]) Date of : 1960 Age: 63 y.o. Room/Bed: W3-339/W3-339 B Discharge Recommendation: IP Rehab Equipment Needed: No Other: pt will benefit from use of FWW while in acute therapies Assessment Pt needs assist with all mobility and gait; Les fatigues quickly with gait and shows knee hyperextension and buckling and she fatigues; pt very cooperative; pt at high risk for falls; recommend rehablevel therapy post acute care; pt would tolerate 15 hours of therapy each week Subjective Pleasant and cooperative; c/o SOB; HR 85, spO2 97% Pain: Pt denies any current pain. Medical Precautions: No active isolations Proper PPE donned/doffed in accordance with facility standards. Fall Risk: Bunn Fall Risk Score: 85 (High Risk) Overall Cognitive Status: Exceptions - Problem solving: assistance required to generate solutions and assistance required to implement solutions - Sequencing: requires cues for some Overall Orientation Status: Oriented x4 Family/Caregiver Present: none Objective Bed Mobility Supine to sit: Min Assist Scooting: Min Assist Transfers/Mobility Sit to stand: Mod Assist Stand to sit: Mod Assist VC for hand placement Device(s) used: None Ambulation Ambulation 1 Assistive device(s) used: Front wheeled walker Assist level: Mod Assist Distance (ft): 2 feet, 3 feet x2 Quality of gait: shuffling, slow amanda, instability through all phases, knee hyperextension / buckling Exercises Exercises Straight Leg Raise: Adebayo x10 reps Quad Sets: Adebayo x10 reps Heelslides: Adebayo x10 reps Gluteal Sets: Adebayo x10 reps Hip Abduction: Adebayo x10 reps Knee Long Arc Quad: Adebayo x10 reps Ankle Pumps: and ankle circles Adebayo x10 reps Plan Continue acute PT per plan of care. Safety/Education Safety Safety Devices in place: call light within reach, left in chair, chair alarm in place, gait belt, and patient at risk for falls Restraints: No Education Education Given To: patient Education Provided: PT Role, PT Goals, Fall Prevention Education, and Discharge Recommendations Education Method: Verbal Barriers to Learning: Education Outcome: Outcome Measures AM-PAC AM-PAC Inpatient Mobility Raw Score (No Stairs) : 12 JH-HLM JH-HLM Score: Walked 10 steps or more (i.e. walked to restroom) Goals Patient Stated Goal: Get stronger Encounter Problems Encounter Problems (Active) Balance Patient will maintain static standing balance for 3 minutes with min assist in order to demonstratedecreased risk of falling. (Progressing) Start: 08/03/24 Expected End: 08/31/24 Patient will maintain static sitting balance for 3 minutes with supervision in order to demonstrateimproved postural control and prepare for out of bed mobility. (Progressing) Start: 08/03/24 Expected End: 08/31/24 Mobility Patient will ambulate 50 feet with min assist and rolling walker in order to improve safety and independence with mobility. (Progressing) Start: 08/03/24 Expected End: 08/31/24 Transfers Patient will perform bed mobility with supervision in order to improve independence and prepare forout of bed mobility. (Progressing) Start: 08/03/24 Expected End: 08/31/24 Patient will complete functional transfer with rolling walker with min assist in order to prepare for ambulation. (Progressing) Start: 08/03/24 Expected End: 08/31/24 Therapy Time Individual Co-treatment Time In 0820 Time Out 0844 Minutes 24 Timed Code Treatment Minutes: 24 Minutes (TP; GT) This PT wore gloves throughout the entire session. Saroj Amezcua, PT * Khai Espana, DO - 08/08/2024 8:26 AM EDT Med Team Progress Note Sandy Deng : 1960(63 y.o.) Date: August 08, 2024 Med Team: A Attending: Dr. De La Garza Chief Complaint: Brain bleed Subjective: Sandy Deng is a 63 yo F with a PMH of COPD, diabetic neuropathy, hx of NSTEMI, stage 4 CKD (on HD TTS), and Type 1 diabetes. Initially patient presented to [facility] on 07/23 with acute respiratory distress and acute delirium. She was hypoxic and hypercapnic and COVID pos on 07/24. Required intubation. CT showed acute right sided SDH, which is tiny, stable, and likely an incidental finding requiring no acute intervention. She reportedly had a fall 1 month ago from bed. states she hit her head on the nightstand. Pt was then transferred to [facility]. Initial infectious workup returned with CTX-M Pseudomonas and S aureus identified on pneumonia PCR. Patient went into septic shock, requiring pressors, now resolved. Patient no longer on antibiotics. Patient saturating well on 3-4L NC. Home O2 requirement of 3L. - Currently, patient is resting in bed comfortably. She reports SOB and mild nasal congestion. No phlegm production noted. Continues to saturate well on 3-4 L NC. Pt denies headache, chest pain, nausea, and abdominal pain. She continues to note fatigue and weakness, understandable given hospital course. Respiratory panel was negative. Patient again noted to have brief 2-3 second run of NSVT. bladder scan 08/07 revealed retention of >300 ml of urine, patient was straight cathed PRN meds used in last 24hrs: heparin injection Review of Systems Constitutional: Positive for fatigue. Negative for appetite change, chills, diaphoresis and fever. HENT: Positive for congestion and trouble swallowing. Respiratory: Positive for shortness of breath. Negative for apnea, cough, chest tightness, wheezingand stridor. Cardiovascular: Negative for chest pain, palpitations and leg swelling. Gastrointestinal: Negative for abdominal pain, anal bleeding, blood in stool, constipation and diarrhea. Neurological: Positive for weakness. Negative for speech difficulty, light- headedness, numbness andheadaches. Psychiatric/Behavioral: Negative for agitation, confusion and sleep disturbance. Scheduled Meds:busPIRone, 7.5 mg, Oral, BID calcium gluconate, 1,000 mg, IntraVENous, Once fluticasone, 2 spray, Each Nostril, Daily gabapentin, 200 mg, Oral, BID Glycopyrrolate-Formoterol, 2 puff, Inhalation, BID heparin, 5,000 Units, SubCUTAneous, 2 times per day insulin glargine, 5 Units, SubCUTAneous, Nightly insulin lispro, 0-12 Units, SubCUTAneous, TID WC And insulin lispro, 0-12 Units, SubCUTAneous, Nightly ipratropium-albuterol, 3 mL, Nebulization, TID [Held by provider] metoprolol tartrate, 50 mg, Oral, BID mirtazapine, 7.5 mg, Oral, Nightly pantoprazole, 40 mg, Oral, Nightly Or pantoprazole (ProtoNix) 40 mg in sodium chloride (PF) 0.9 % 10 mL injection, 40 mg, IntraVENous, Nightly potassium phosphates 20 mmol in sodium chloride 0.9 % 250 mL IVPB, 20 mmol, IntraVENous, Once [Held by provider] predniSONE, 40 mg, Oral, Daily sodium chloride 0.9%, 10 mL, IntraCATHeter, q12h Continuous Infusions: Objective: BP 145/58 (BP Location: Left arm, Patient Position: Lying) Pulse 76 Temp 36.6 C (97.8 F) (Temporal) Resp 12 Ht 5' 5.98 (1.676 m) Wt 126 lb 8.7 oz (57.4 kg) SpO2 98% BMI 20.43 kg/m Physical Exam Constitutional: General: She is not in acute distress. Appearance: Normal appearance. She is normal weight. She is not ill-appearing, toxic-appearing or diaphoretic. HENT: Head: Normocephalic. Nose: Congestion present. Cardiovascular: Rate and Rhythm: Normal rate and regular rhythm. Pulses: Normal pulses. Heart sounds: Normal heart sounds. No murmur heard. No friction rub. No gallop. Pulmonary: Effort: Pulmonary effort is normal. No respiratory distress. Breath sounds: Normal breath sounds. No stridor. No wheezing, rhonchi or rales. Chest: Chest wall: No tenderness. Abdominal: General: Bowel sounds are normal. Skin: General: Skin is warm. Neurological: General: No focal deficit present. Mental Status: She is alert and oriented to person, place, and time. Mental status is at baseline. Psychiatric: Mood and Affect: Mood normal. Behavior: Behavior normal. Thought Content: Thought content normal. Judgment: Judgment normal. [facility] within last 24 hours Auto WBC Date Value Ref Range Status 08/08/2024 7.6 3.6 - 10.7 10*3/uL Final Hemoglobin Date Value Ref Range Status 08/08/2024 8.7 (L) 11.7 - 16.0 g/dL Final Hematocrit Date Value Ref Range Status 08/08/2024 28.9 (L) 35.0 - 47.0 % Final Platelets Date Value Ref Range Status 08/08/2024 118 (L) 140 - 440 10*3/uL Final MCV Date Value Ref Range Status 08/08/2024 95.7 77.0 - 99.0 fL Final SODIUM Date Value Ref Range Status 08/08/2024 134 (L) 135 - 145 mmol/L Final POTASSIUM Date Value Ref Range Status 08/08/2024 3.7 3.5 - 5.1 mmol/L Final CHLORIDE Date Value Ref Range Status 08/08/2024 100 98 - 107 mmol/L Final CARBON DIOXIDE Date Value Ref Range Status 08/08/2024 32 (H) 22 - 30 mmol/L Final UREA NITROGEN Date Value Ref Range Status 08/08/2024 14 7 - 17 mg/dL Final CREATININE Date Value Ref Range Status 08/08/2024 1.51 (H) 0.52 - 1.04 mg/dL Final GLUCOSE Date Value Ref Range Status 08/08/2024 293 (H) 70 - 100 mg/dL Final CALCIUM Date Value Ref Range Status 08/08/2024 6.9 (L) 8.4 - 10.4 mg/dL Final MAGNESIUM Date Value Ref Range Status 08/08/2024 1.7 1.6 - 2.3 mg/dL Final PHOSPHORUS Date Value Ref Range Status 08/08/2024 2.1 (L) 2.5 - 4.5 mg/dL Final No results found for: AST, ALT, PROT, BILITOT, ALKPHOS, INR, APTT, LIPASE No results found for: CKTOTAL, CKMB, TROPONINI No results found for: PROCAL, CHOL, TRIG, HDL, TSH, VITD25, HGBA1C, VANCOTROUGH Assessment and Plan: Aspiration pneumonitis vs COPD exacerbation - concern for recent aspiration in setting of dysphagia - Patient reports SOB and mild nasal congestion - Continues to saturate well on 3-4 L NC, Lungs CTA - Patient noted to have brief 2-3 second run of NSVT x2 over last 2 days - Respiratory panel negative Plan: - Chest x-ray - Continue Flonase, Duo nebs TID, and Mucinex PRN - Consider Prednisone taper if symptoms worsen - Maintain O2 saturation between 88-92% 2/2 COPD Septic shock 2/2 Polymicrobial PNA; Per ID stewardship, Tx with mary ann 07/27-08/02 Covid pos at OSH, micro testing pos for non-COVID coronavirus on admission Acute on Chronic Hypoxemic, Hypercapnic Resp failure - extubated 07/30 - Initial infectious workup returned with CTX-M Pseudomonas and S aureus - Procal 0.16 (08/05) - Lactic acid .5 (08/05) - WBC 6.5 (08/06) - Off antibiotics Plan: - Continue spirometry - Maintain O2 saturation between 88-92% 2/2 COPD Trace Subdural Hematoma, Right-sided, Stable - notes patient fell about 1 month prior to admission and hit head - CT revealed trace R SDH Plan: - Stable no follow up needed UMA on CKD stage 4, resolved - last (04/26) Cr 2.4 eGFR 20, 24 hr qrrclfd=5352 mg. - On admit, (07/26) Cr 4.56, CRRT initiation for severe acidosis in setting of hemodynamic instability 07/26-08/01. - Creatinine decreased from 2.07 to 1.51 s/p dialysis - remains oliguric, transitioned to intermittent HD on 08/03 - bladder scan 08/07 revealed retention of >300 ml of urine, patient was straight cathed - pt has TDC - plan TTS dialysis schedule, will continue to monitor for renal recovery - nephro following Plan: - TTS dialysis schedule - Will continue to monitor BMP for renal recovery - If patient retains >[address] johnson Hypertension - last BP 140s/60s - HD yesterday (08/07) - hold off on starting ACEi/ARB due to UMA - Will continue to monitor Dysphagia, Mild - Speech therapy evaluated at bedside; recommend continuation of acute [employer] therapy - Diet order on pureed solids and Mildly thick liquids and meds whole in puree or crushed in puree Acute on chronic anemia - Hgb 6.6, received 1 unit of blood in morning (08/06) - Hgb 8.1 08/07 AM - Remains clinically stable Plan: - Continue to monitor Hgb and transfuse per protocol Hgb <7 T1DM - POCT glucose 314 - Patient received increased Lantus 5 units last night - Will continue to monitor on next labs Electrolyte Derangements - Na 134 (from 133) - Phosphate (2.1), repleted - Hypokalemia resolved Plan: - Continue daily BMP Disposition: Awaiting placement Associated attestation - Fly De La Garza DO - 08/08/2024 12:44 PM EDT I saw and evaluated the patient. I agree with the findings and plan of care as documented in the resident's note, except as noted in Green text. Patient seen and examined personally during bedside teaching rounds (Date of Service: 08/08/24) Cantrell Changes to Care Plan: -Has some subjective congestion/shortness of breath. Her O2 sat is near 100% on 4 L. -Her O2 sat goal should not be 100%, we should aim for more 88 to 92% given her COPD history -We will do a chest x-ray today as she did have an aspiration event a couple days ago that I am wondering has causing her current symptoms. There have been no change in her oxygen requirements though. She also does not have a leukocytosis. -Primarily waiting for discharge to rehab facility. She is stable for discharge at any point. 7AM-5PM: contact resident on [facility] Med A (find by hovering over attending's name on left side of patient's chart) 5PM-7AM: contact 3 res * Jose Carlos Medrano MD - 08/07/2024 11:52 AM EDT Images from the original note were not included. NEPHROLOGY SOAP NOTE Visit date: 08/07/24, 11:52 AM Patient: Sandy Deng Room number: [id number] Date of Admit: 07/26/2024 LOS: 12 days Referring physician: Ino Conte MD Outpatient X Ray Inspector: Christy Huerta DO ASSESSMENT/PLAN: UMA on CKD 4 - Cr has been 2.4-2.8, last (04/26) Cr 2.4 eGFR 20, 24 hr wwhilom=7149 mg. - On admit, (07/26) Cr 4.56, CRRT initiation for severe acidosis in setting of hemodynamic instability 07/26-08/01. - remains oliguric, transitioned to intermittent HD on 08/03 - pt has TDC - plan TTS dialysis schedule, will continue to monitor for renal recovery 2. Electrolytes - last Na was 134 - K 4.2 3. Acid-base - bicarb stable at 31 - managed with dialysis 4. BP/volume status: - last BP 162/58, average 149/58 last 24 hours - she has prn hydralazine ordered - hold off on starting ACEi/ARB due to UMA - targeting 2 liter UF with dialysis - consider addition of diuretic therapy (if BP tolerates) 5. Anemia - Hgb 8.1 - pRBC needs per primary team 6. ID - meropenem and remdesivir completed Adjust medications based on: Estimated Creatinine Clearance: 24.9 mL/min (A) (by C-G formula based on SCr of 2.07 mg/dL (H)). SUBJECTIVE: Patient with chronic, stable medical conditions as documented in the initial consultation. Interval history reviewed: transferred to [facility] Patient reports breathing comfortably Appetite has bene good without nausea Notes swelling in legs OBJECTIVE: CURRENT MEDICATIONS: busPIRone, 7.5 mg, Oral, BID fluticasone, 2 spray, Each Nostril, Daily gabapentin, 200 mg, Oral, BID Glycopyrrolate-Formoterol, 2 puff, Inhalation, BID heparin, 5,000 Units, SubCUTAneous, 2 times per day insulin glargine, 5 Units, SubCUTAneous, Nightly insulin lispro, 0-12 Units, SubCUTAneous, TID WC And insulin lispro, 0-12 Units, SubCUTAneous, Nightly ipratropium-albuterol, 3 mL, Nebulization, TID [Held by provider] metoprolol tartrate, 50 mg, Oral, BID mirtazapine, 7.5 mg, Oral, Nightly pantoprazole, 40 mg, Oral, Nightly Or pantoprazole (ProtoNix) 40 mg in sodium chloride (PF) 0.9 % 10 mL injection, 40 mg, IntraVENous, Nightly [Held by provider] predniSONE, 40 mg, Oral, Daily sodium chloride 0.9%, 10 mL, IntraCATHeter, q12h PHYSICAL EXAMINATION: Visit Vitals BP (!) 162/58 (BP Location: Left arm, Patient Position: Lying) Pulse 75 Temp 36.4 C (97.6 F) (Temporal) Resp 18 Ht 1.676 m (5' 5.98) Wt 57.4 kg (126 lb 8.7 oz) SpO2 99% BMI 20.43 kg/m BSA 1.63 m Admit Wt: Weight: 48 kg (105 lb 13.1 oz) Todays Wt: Weight: 57.4 kg (126 lb 8.7 oz) Average, Min, and Max for last 24 hours Vitals: TEMPERATURE: Temp Av.3 C (97.4 F) Min: 35.8 C (96.5 F) Max: 37 C (98.6 F) RESPIRATIONS RANGE: Resp Av.8 Min: 17 Max: 20 PULSE RANGE: Pulse Av.5 Min: 71 Max: 79 BLOOD PRESSURE RANGE: Systolic (24hrs), Av , Min:130 , Max:162 Diastolic (24hrs), Av, Min:50, Max:65 PULSE OXIMETRY RANGE: SpO2 Av.5 % Min: 99 % Max: 100 % Estimated body mass index is 20.43 kg/m as calculated from the following: Height as of this encounter: 1.676 m (5' 5.98). Weight as of this encounter: 57.4 kg (126 lb 8.7 oz). Intake/Output Summary (Last 24 hours) at 08/07/2024 1152 Last data filed at 08/06/2024 1829 Gross per 24 hour Intake 500 ml Output 150 ml Net 350 ml General Appearance no acute distress, awake and alert but appears anxious HEENT Neck anicteric sclera, moist mucus membranes, normal external ears/nares, no facial edema Supple neck, midline trachea without tracheal deviation Chest symmetric, normal shape/expansion, no chest wall/sternal tenderness; R TDC Heart RRR, no audible pericardial rubs, no audible murmurs Lungs Coarse breath sounds Abdomen Skin soft without distension, normal bowel sounds, no grimacing on palpation no rash or subcutaneous nodules, warm and dry skin with good turgor Musculoskeletal 1+ dependent U/LE edema + johnson catheter present Neurologic no resting tremor or myoclonus DATA: LABS: Recent Labs 08/05/24 0256 08/06/24 0203 08/06/24 0957 08/07/24 0106 WBC 7.4 6.5 -- 8.0 HGB 7.4* 6.6* 7.9* 8.1* HCT 23.6* 21.6* 25.2* 26.7* MCV 90.4 93.1 -- 94.3 PLT 168 120* -- 128* Recent Labs 08/05/24 0256 08/06/24 0203 08/07/24 0106 NA 132* 133* 134* K 4.0 3.1* 4.2 CL 105 99 102 CO2 26 32* 31* BUN 35* 16 23* CREATININE 2.56* 1.40* 2.07* GLUCOSE 151* 184* 141* CALCIUM 6.7* 7.4* 6.9* MG 2.2 1.9 1.9 PHOS 3.6 2.2* 3.7 ANIONGAP 0* 2* 1* Lab Results Component Value Date CALCIUM 6.9 (L) 08/07/2024 CAION 3.70 (L) 08/04/2024 PHOS 3.7 08/07/2024 No results for input(s): INR, PROTIME, PTT in the last 72 hours. No results found for: IRON, TIBC, FERRITIN No results found for: SUZFOCTR83, FOLATE No results found for: COLORU, CLARITYU, PH, PHUR, LABSPEC, GLUCOSEU, BLOODU, LEUKOCYTESUR, NITRITE, BILIRUBINUR, UROBILINOGEN, BACTERIA, AMORPHOUS, CASTS No results found for: HAV, HEPAIGM, HEPBIGM, HEPBCAB, HBEAG, HEPCAB No lab exists for component: POCGMD No results for input(s): ALT, AST, GGT, ALKPHOS, BILITOT, LIPASE in the last 72 hours. No results for input(s): CKTOTAL, CKMB, CKMBINDEX, TROPONINI, BNP in the last 72 hours. No lab exists for component: NTPROBNP No results for input(s): CHOLTOT, TRIG, HDL, CHOLHDL, LDL in the last 72 hours. No lab exists for component: VLDCHOL No components found for: LABA1C Recent Labs 08/05/24255 LACTATE 0.5* No results found for: FIBRINOGEN No results for input(s): CRP in the last 72 hours. No lab exists for component: ESR No results found for: CRP Lab Results Component Value Date LABGRAM (A) 07/27/2024 Many Polymorphonuclear leukocytes per low power field LABGRAM Few Epithelial cells per low power field (A) 07/27/2024 LABGRAM Moderate Gram positive cocci (A) 07/27/2024 No components found for: LABFUNG IMAGING: POCT glucose meter Performed by: [facility], [address] [place] [address] CLIA ID: [id number] Signed: Jose Carlos Medrano MD Nephrology [facility] ([facility]) Pager: [phone] Office Office * Khai Ye Jovi, DO - 08/07/2024 8:18 AM EDT Med Team Progress Note Sandy Deng : 1960(63 y.o.) Date: August 07, 2024 Med Team: Frank Attending: Dr. De La Garza Chief Complaint: Brain bleed Subjective: Sandy Deng is a 63 yo F with a PMH of COPD, diabetic neuropathy, hx of NSTEMI, stage 4 CKD (on HD TTS), and Type 1 diabetes. Initially patient presented to [facility] on 07/23 with acute respiratory distress and acute delirium. She was hypoxic and hypercapnic and COVID pos on 07/24. Required intubation. CT showed acute right sided SDH, which is tiny, stable, and likely an incidental finding requiring no acute intervention. She reportedly had a fall 1 month ago from bed. states she hit her head on the nightstand. Pt was then transferred to [facility]. Initial infectious workup returned with CTX-M Pseudomonas and S aureus identified on pneumonia PCR. Patient went into septic shock, requiring pressors, now resolved. Patient no longer on antibiotics. Patient saturating well on 3-4L NC. Home O2 requirement of 3L. - Currently, patient is resting in bed comfortably. She reports SOB and mild nasal congestion as well as chest congestion. No phlegm production noted. Continues to saturate well on 3-4 L NC. Pt denies headache, chest pain, nausea, and abdominal pain. She continues to note fatigue and weakness, understandable given hospital course. Patient given Flonase, Duo nebs TID, and Mucinex PRN. Respiratory panel ordered. Patient noted to have brief 2-3 second run of NSVT overnight. PRN meds used in last 24hrs: heparin injection Review of Systems Constitutional: Positive for fatigue. Negative for appetite change, chills, diaphoresis and fever. HENT: Positive for congestion and trouble swallowing. Respiratory: Positive for shortness of breath. Negative for apnea, cough, chest tightness, wheezingand stridor. Cardiovascular: Negative for chest pain, palpitations and leg swelling. Gastrointestinal: Negative for abdominal pain, anal bleeding, blood in stool, constipation and diarrhea. Neurological: Positive for weakness. Negative for speech difficulty, light- headedness, numbness andheadaches. Psychiatric/Behavioral: Negative for agitation, confusion and sleep disturbance. Scheduled Meds:busPIRone, 7.5 mg, Oral, BID gabapentin, 200 mg, Oral, BID Glycopyrrolate-Formoterol, 2 puff, Inhalation, BID heparin, 5,000 Units, SubCUTAneous, 2 times per day insulin glargine, 5 Units, SubCUTAneous, Nightly insulin lispro, 0-12 Units, SubCUTAneous, TID WC And insulin lispro, 0-12 Units, SubCUTAneous, Nightly [Held by provider] metoprolol tartrate, 50 mg, Oral, BID mirtazapine, 7.5 mg, Oral, Nightly pantoprazole, 40 mg, Oral, Nightly Or pantoprazole (ProtoNix) 40 mg in sodium chloride (PF) 0.9 % 10 mL injection, 40 mg, IntraVENous, Nightly sodium chloride 0.9%, 10 mL, IntraCATHeter, q12h Continuous Infusions: Objective: BP (!) 162/58 (BP Location: Left arm, Patient Position: Lying) Pulse 75 Temp 36.4 C (97.6 F) (Temporal) Resp 18 Ht 5' 5.98 (1.676 m) Wt 126 lb 8.7 oz (57.4 kg) SpO2 99% BMI 20.43 kg/m Physical Exam Constitutional: General: She is not in acute distress. Appearance: Normal appearance. She is normal weight. She is not ill-appearing, toxic-appearing or diaphoretic. HENT: Head: Normocephalic. Nose: Congestion present. Cardiovascular: Rate and Rhythm: Normal rate and regular rhythm. Pulses: Normal pulses. Heart sounds: Normal heart sounds. No murmur heard. No friction rub. No gallop. Pulmonary: Effort: Pulmonary effort is normal. No respiratory distress. Breath sounds: Normal breath sounds. No stridor. No wheezing, rhonchi or rales. Chest: Chest wall: No tenderness. Abdominal: General: Bowel sounds are normal. Skin: General: Skin is warm. Neurological: General: No focal deficit present. Mental Status: She is alert and oriented to person, place, and time. Mental status is at baseline. Psychiatric: Mood and Affect: Mood normal. Behavior: Behavior normal. Thought Content: Thought content normal. Judgment: Judgment normal. [facility] within last 24 hours Auto WBC Date Value Ref Range Status 08/07/2024 8.0 3.6 - 10.7 10*3/uL Final Hemoglobin Date Value Ref Range Status 08/07/2024 8.1 (L) 11.7 - 16.0 g/dL Final 08/06/2024 7.9 (L) 11.7 - 16.0 g/dL Final Hematocrit Date Value Ref Range Status 08/07/2024 26.7 (L) 35.0 - 47.0 % Final Platelets Date Value Ref Range Status 08/07/2024 128 (L) 140 - 440 10*3/uL Final MCV Date Value Ref Range Status 08/07/2024 94.3 77.0 - 99.0 fL Final SODIUM Date Value Ref Range Status 08/07/2024 134 (L) 135 - 145 mmol/L Final POTASSIUM Date Value Ref Range Status 08/07/2024 4.2 3.5 - 5.1 mmol/L Final CHLORIDE Date Value Ref Range Status 08/07/2024 102 98 - 107 mmol/L Final CARBON DIOXIDE Date Value Ref Range Status 08/07/2024 31 (H) 22 - 30 mmol/L Final UREA NITROGEN Date Value Ref Range Status 08/07/2024 23 (H) 7 - 17 mg/dL Final CREATININE Date Value Ref Range Status 08/07/2024 2.07 (H) 0.52 - 1.04 mg/dL Final GLUCOSE Date Value Ref Range Status 08/07/2024 141 (H) 70 - 100 mg/dL Final CALCIUM Date Value Ref Range Status 08/07/2024 6.9 (L) 8.4 - 10.4 mg/dL Final MAGNESIUM Date Value Ref Range Status 08/07/2024 1.9 1.6 - 2.3 mg/dL Final PHOSPHORUS Date Value Ref Range Status 08/07/2024 3.7 2.5 - 4.5 mg/dL Final No results found for: AST, ALT, PROT, BILITOT, ALKPHOS, INR, APTT, LIPASE No results found for: CKTOTAL, CKMB, TROPONINI No results found for: PROCAL, CHOL, TRIG, HDL, TSH, VITD25, HGBA1C, VANCOTROUGH Assessment and Plan: Aspiration PNA vs Aspiration pneumonitis vs COPD exacerbation - concern for recent aspiration in setting of dysphagia - Patient reports SOB and mild nasal congestion as well as chest congestion - Continues to saturate well on 3-4 L NC, Lungs CTA - Patient noted to have brief 2-3 second run of NSVT overnight Plan: - Start Flonase, Duo nebs TID, and Mucinex PRN - Respiratory panel ordered - Consider Prednisone taper if symptoms worsen - Maintain O2 saturation between 88-92% 2/2 COPD Septic shock 2/2 Polymicrobial PNA; Per ID stewardship, Tx with mary ann 07/27-08/02 Covid pos at OSH, micro testing pos for non-COVID coronavirus on admission Acute on Chronic Hypoxemic, Hypercapnic Resp failure - extubated 07/30 - Initial infectious workup returned with CTX-M Pseudomonas and S aureus - Procal 0.16 (08/05) - Lactic acid .5 (08/05) - WBC 6.5 (08/06) - Off antibiotics Plan: - Continue spirometry - Maintain O2 saturation between 88-92% 2/2 COPD Trace Subdural Hematoma, Right-sided, Stable - notes patient fell about 1 month prior to admission and hit head - CT revealed trace R SDH Plan: - Stable no follow up needed UMA on CKD stage 4 - Cr has been 2.4-2.8, last (04/26) Cr 2.4 eGFR 20, 24 hr [id number]=8422 mg. - On admit, (07/26) Cr 4.56, CRRT initiation for severe acidosis in setting of hemodynamic instability 07/26-08/01. 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 - Diet order on pureed solids and Mildly thick liquids and meds whole in puree or crushed in puree Acute on chronic anemia - Hgb 6.6, received 1 unit of blood in morning (08/06) - Hgb 8.1 10/5 AM - Remains clinically stable Plan: - Continue to monitor Hgb and transfuse per protocol Hgb <7 T1DM -POCT glucose 179 Plan: - Continue on Lantus 5 units with MDSSI Electrolyte Derangements - Na 134 (from 133) - Hypophosphatemia resolved - Hypokalemia resolved Plan: - Continue daily BMP Disposition: Awaiting placement Associated attestation - Fly De La Garza DO - 08/07/2024 3:42 PM EDT I saw and evaluated the patient. I agree with the findings and plan of care as documented in the resident's note, except as noted in Green text. Patient seen and examined personally during bedside teaching rounds (Date of Service: 08/07/24) Cantrell Changes to Care Plan: -feeling a little more congested and short of breath. -could be from aspiration she had, vs respiratory viral illness -afebrile without leukocytosis and on baseline supplemental O2, so will wait to change treatment atthis point -primarily waiting for placement 7AM-5PM: contact resident on [facility] (find by hovering over attending's name on left side of patient's chart) 5PM-7AM: contact MAKI stanton * Elle Israel PTA - 08/06/2024 2:28 PM EDT Images from the original note were not included. PHYSICAL THERAPY [facility] Treatment Note Name/MRN: Sandy Deng ([id number]) Date of : 1960 Age: 63 y.o. Room/Bed: W3-323/W3-323 A Discharge Recommendation: IP Rehab Equipment Needed: No Other: pt will benefit from use of FWW while in acute therapies Prior Level of Function ADL Assistance: Independent Ambulation Assistance: Independent Device(s) used: Straight Cane Transfer Assistance: Independent Assessment Pt presents with the listed deficits and decreased functional mobility. Transfers demo'd MaxA/ModA.Standing marches performed with Juan Diego to initiate gait. Pt limited by weakness, decreased balance, decreased endurance and fatigue. PT goals progressing. Pt would benefit from continued skilled PT. Rec ommend IP Rehab at discharge. Subjective Pt sitting up in chair. Agreeable to therapy. RN cleared for PT. Pain: Pt denies any current pain. Reports being sore all over Medical Precautions: No active isolations Proper PPE donned/doffed in accordance with facility standards. Fall Risk: Bunn Fall Risk Score: 60 (High Risk) Precautions/Restrictions: Lines/Drains/Airways: PIV, johnson, NC 2L (pt on 3L at home per ) Fall Precautions Overall Cognitive Status: WFL Overall Orientation Status: Oriented to Place, Oriented to Situation, and Oriented to Person Family/Caregiver Present: spouse Objective Transfers/Mobility Sit to stand: Mod Assist, Max Assist Stand to sit: Mod Assist, Max Assist X 4 from chiar. Cues for anterior wt shift and use of momentum. Cues for proper hand and foot placement. Cues to reach for safety awareness and maintain eccentric control when returning to seated surface. Cues for upright posture. No overt LOB. General unsteadiness. Pt required MaxA when pulling upon FWW. Required ModA when pressing up from chair to stand. Denies dizziness. Seated rest breaks between trails. Device(s) used: Front wheeled walker Balance During Session: Posture: fair Sitting - Static: SBA Sitting - Dynamic: SBA Standing - Static: Min Assist Standing - Dynamic: Min Assist, Mod Assist Static standing x 3 ~ 1 min each. Exercises Exercises Quad Sets: BLE AROM x 5 reps Heelslides: BLE AROM x 5 reps in sitting Gluteal Sets: BLE AROM x 5 reps Hip Abduction: BLE AROM x 5 reps Hip Adduction: BLE AROM x 5 reps Knee Long Arc Quad: BLE AROM x 5 reps Ankle Pumps: BLE AROM x 2 x 5 reps Standing marches to initiate gait training: X 5 reps x 3 sets Comments: Cues for eccentric control, proper alignment and technique. Plan Continue acute PT per plan of care. Safety/Education Safety Safety Devices in place: All fall risk precautions in place, call light within reach, left in chair, chair alarm in place, gait belt, patient at risk for falls, and nurse notified Restraints: No Education Education Given To: patient Education Provided: PT Role, PT Goals, Plan of Care, Home Exercise Program, Precautions, Transfer Training, Energy Conservation, Family Education, Equipment, Fall Prevention Education, Discharge Recommendations, Benefits of Increasing Activity, and Breathing Techniques Education Method: Verbal, Demonstration, and Teach Back Barriers to Learning: None Education Outcome: Verbalized Understanding, Demonstrated Understanding, and Continued Education Needed Outcome Measures AM-PAC AM-PAC Inpatient Mobility Raw Score (No Stairs) : 12 JH-HLM JH-HLM Score: Static standing (1 or more minutes) Goals Patient Stated Goal: pt and spouse would like her to go home Encounter Problems Encounter Problems (Active) Balance Patient will maintain static standing balance for 3 minutes with min assist in order to demonstratedecreased risk of falling. (Progressing) Start: 08/03/24 Expected End: 08/31/24 Patient will maintain static sitting balance for 3 minutes with supervision in order to demonstrateimproved postural control and prepare for out of bed mobility. (Progressing) Start: 08/03/24 Expected End: 08/31/24 Mobility Patient will ambulate 50 feet with min assist and rolling walker in order to improve safety and independence with mobility. (Initiated) Start: 08/03/24 Expected End: 08/31/24 Transfers Patient will perform bed mobility with supervision in order to improve independence and prepare forout of bed mobility. (Not Addressed) Start: 08/03/24 Expected End: 08/31/24 Patient will complete functional transfer with rolling walker with min assist in order to prepare for ambulation. (Progressing) Start: 08/03/24 Expected End: 08/31/24 Therapy Time Individual Co-treatment Time In 1339 Time Out 1350 Minutes 11 Timed Code Treatment Minutes: 11 Minutes (FA) SLITTING AND SHIPPING SUPERVISOR wore PPE in compliance with hospital guidelines and regulation when treating this patient. Elle Israel, SLITTING AND SHIPPING SUPERVISOR * Sandy MarieUriel Bangura, LI - 08/06/2024 11:26 AM EDT Images from the original note were not included. OCCUPATIONAL THERAPY [facility] Treatment Note Name/MRN: Sandy Deng ([id number]) Date of : 1960 Age: 63 y.o. Room/Bed: W3-323/W3-323 A Discharge Recommendation: IP Rehab Other: Continue to assess pending progress. Assessment Progressing toward goals. Anxious/fearful with standing/mobility. Needs assist for ADL, balance, transfers, mobility. Suggest intensive rehab level therapies at discharge to promote return to baseline function. inquiring if appropriate to take pt home. Feel that pt needs to make some progress with mobility and transfers prior to admit to provide decreased risk for readmission. Subjective Pt in bed, agrees to OT. Per RN, more alert than she was prior to transfusion. Appears mildly confused. Pain: no specific c/o pain this session Medical Precautions: No active isolations Proper PPE donned/doffed in accordance with facility standards. Fall Risk: Bunn Fall Risk Score: 60 (High Risk) Precautions/Restrictions: NC 4L (pt on 3L at home per ) Family/Caregiver Present: spouse and but left start of session Objective ADLs LE Dressing: Mod Assist, Able to don R sock, assist for L sock, brief Grooming: Supervision, seated EOB; wash face, oral care Bed Mobility Supine to sit: Min Assist Scooting: Mod Assist, scoot to EOB once upright Transfers/Mobility Sit to stand: Min Assist, from EOB Stand to sit: Mod Assist, lacks control on descent to chair Sitting balance: Supervision Standing balance: initially mod assist, retro. With cues , progresses to min assist. With each stand trial, pt initially retro but able to get some correction with cues. Functional mobility: Mod Assist, several steps bed --> chair. Retro and with poor walker management. Moves quickly, fearful/anxious. Plan Continue acute OT per plan of care. Safety/Education Safety Safety Devices in place: call light within reach, left in chair, chair alarm in place, and returned to room at end of session Restraints: N/A Education Balance, transfers, ADL Will need ongoing education. AM-PAC AM-PAC Inpatient Daily Activity Raw Score: 16 ADL Inpatient CMS G-Code Modifier: CK Goals Patient Stated Goal: No specific goal stated this session Encounter Problems Encounter Problems (Active) Balance Patient will maintain dynamic standing balance for 5-10 minutes with min assist in order to demonstrate decreased risk of falling. (Slowly Progressing) Start: 08/02/24 Expected End: 08/30/24 Bathing Patient will utilize adaptive techniques to bathe body with Min A (Not Addressed) Start: 08/02/24 Expected End: 08/30/24 Dressing Upper Extremities Patient will complete upper body dressing with SBA (Not Addressed) Start: 08/02/24 Expected End: 08/30/24 Dressings Lower Extremities Patient will dress lower body with Min A (Progressing) Start: 08/02/24 Expected End: 08/30/24 Mobility Patient will demonstrate functional ambulation with Mod A (Slowly Progressing) Start: 08/02/24 Expected End: 08/30/24 Transfers Patient will complete functional transfer with least restrictive device with min assist in order toprepare for ambulation. (Goal Met) Start: 08/02/24 Expected End: 08/30/24 Resolved: 08/06/24 Patient will perform bed mobility with CGA in order to improve independence and prepare for out of bed mobility. (Progressing) Start: 08/02/24 Expected End: 08/30/24 Therapy Time Individual Co-treatment Time In 1058 Time Out 1126 Minutes 28 Timed Code Treatment Minutes: (Funct--1; Self--1) GUILLERMO Taylor * RENATO Aguiar - 08/06/2024 10:26 AM EDT Images from the original note were not included. Speech-Language Pathology SPEECH LANGUAGE PATHOLOGY [facility] Dysphagia Treatment Note Patient Name: Sandy Deng Evaluation Date: 08/06/2024 Date of : 1960 Admission Date: 07/26/2024 4:17 PM Age: 63 y.o. Room/Bed: [facility] A Subjective Patient was awake and cooperative. Current Diet: Dietary Orders (From admission, onward) Start Ordered 08/04/24 1610 Adult diet Dysphagia - Pureed; Mildly Thick ([place]) Diet effective now Comments: Medications crushed and placed in pureed foods. Question Answer Comment Diet type Dysphagia - Pureed Fluid consistency Mildly Thick ([place]) 08/04/24 1611 08/03/24 1639 Supplement:PM Snack, HS Snack; Vanilla Ensure High Protein Until discontinued Question Answer Comment Frequency PM Snack Frequency HS Snack Select supplement: Vanilla Ensure High Protein 08/03/24 1638 Aspiration Precautions: - Upright positioning for all PO intake - Slow rate of intake - Small bites + single sips - 1:1 Assistance - Swallow x 2 per bolus Oxygen: Oxygen Therapy: Supplemental oxygen O2 Delivery Method: Nasal cannula O2 Flow Rate (L/min): 2 L/min Objective & Assessment Dysphagia Treatment # of Activities: 2 Dysphagia Activity 1: Assess diet tolerance Dysphagia Activity 2: Oropharyngeal strengthening Patient seen with breakfast tray - puree eggs, cream of wheat, and orange juice. Patient also accepted medications halved/whole in applesauce, and met same without overt s/sx of aspiration or penetration. Encouraged patient to utilize safe swallow strategies of double swallow, effortful swallow, and small bites and sips. Patient was able to feed self, however demonstrated impulsivity with bite size and required frequent cueing to take small bites. One instance of coughing noted after two large bites of cream of wheat; patient then assisted with meal due to difficulty with smaller bites. Liquid trials met with clinically adequate oral bolus control, occasionally clinically delayed swallow per palpation, and no overt s/sx of aspiration or penetration. Note: Patient with silent aspiration ofthin liquids previous date. Patient educated on effortful swallows and encouraged to perform same with cream of wheat and sips of orange juice. Question effort with same given increased confusion and decreased direction following for swallow strategies. Patient deferred further trials and exercises after eating eggs and half of her cream of wheat. Plan & Recommendations Plan: Continue acute MULTIFOCAL LENS ASSEMBLER therapy per initial plan of care and established goals. Recommend Pureed solids and Mildly thick liquids and meds whole in puree or crushed in puree and the following precautions: - Upright positioning for all PO intake - Slow rate of intake - Small bites + single small sips - 1:1 Assistance - Swallow x 2 per bolus Oxygen: Oxygen Therapy: Supplemental oxygen O2 Delivery Method: Nasal cannula O2 Flow Rate (L/min): 4 L/min Pain: Pt denies any current pain. PPE Worn: gloves Objective & Assessment Dysphagia Treatment # of Activities: 2 Dysphagia Activity 1: Assess diet tolerance + reinforce swallow strategies Dysphagia Activity 2: Oropharyngeal strengthening Patient was fed puree and mildly thick liquid via teaspoon. Therapist ensured small single bites and sips. Instructed patient to use double swallows with every other bolus which she was able to complete = 100%. However, question ability to recall this strategy independently. Swallow strategies wereposted in the room to assist with recall. Completed Effortful Swallows x 16. Plan & Recommendations Continue acute MULTIFOCAL LENS ASSEMBLER therapy per initial plan of care and established goals. Recommend Pureed solids and Mildly thick liquids and meds crushed in puree and the following precautions: - Upright positioning for all PO intake - Slow rate of intake - Small bites + single small sips - 1:1 Assistance - Swallow x 2 per bolus D/C Recommendations: ongoing speech therapy at next level of care Education Education Given: safety, swallowing strategies, diet recommendations, education of oropharyngeal/oral motor exercise for strengthening Given To: patient Response: needs reinforcement Goals Patient Stated Goal: none stated Encounter Problems Encounter Problems (Active) Swallowing Patient will tolerate recommended food and liquid consistencies without clinical signs and symptomsof aspirations (Progressing) Start: 07/31/24 Expected End: 08/15/24 Patient will participate in repeat clinical dysphagia evaluation (Completed) Start: 07/31/24 Expected End: 08/02/24 Resolved: 08/01/24 Patient will tolerate the least restrictive diet consistency to allow for safe consumption of dailymeals (Progressing) Start: 08/01/24 Expected End: 08/15/24 Patient will participate in instrumental assessment of swallowing as appropriate (Completed) Start: 08/04/24 Expected End: 08/18/24 Resolved: 08/04/24 Patient will complete oropharyngeal strengthening exercises to improve swallow function (Progressing) Start: 08/04/24 Expected End: 08/18/24 Therapy Time MULTIFOCAL LENS ASSEMBLER Individual Minutes Time In: 1000 Time Out: 1010 Minutes: 10 Shanti Bianchi MA, CCC/MULTIFOCAL LENS ASSEMBLER * GUILLERMO Dorantes - 08/06/2024 8:02 AM EDT Images from the original note were not included. OCCUPATIONAL THERAPY [facility] Name/MRN: Sandy Deng ([id number]) Date: 08/06/2024 Hold OT this a.m.; HgB 6.6 with order to transfuse. Will follow and treat as appropriate. SandyGUILLERMO Oconnell * Khai Espana, DO - 08/06/2024 7:20 AM EDT Med Team Progress Note Sandy Deng : 1960(63 y.o.) Date: August 06, 2024 Med Team: Frank Attending: Dr. De La Garza Chief Complaint: Brain bleed Subjective: Sandy Deng is a 63 yo F with a PMH of COPD, diabetic neuropathy, hx of NSTEMI, stage 4 CKD (on HD TTS), and Type 1 diabetes. Initially patient presented to [facility] on 07/23 with acute respiratory distress and acute delirium. She was hypoxic and hypercapnic and COVID pos on 07/24. Required intubation. CT showed acute right sided SDH, which is tiny, stable, and likely an incidental finding requiring no acute intervention. She reportedly had a fall 1 month ago from bed. states she hit her head on the nightstand. Pt was then transferred to [facility]. Initial infectious workup returned with CTX-M Pseudomonas and S aureus identified on pneumonia PCR. Patient went into septic shock, requiring pressors, now resolved. Patient no longer on antibiotics. Patient saturating well on 4L NC. Home O2 requirement of 3L. - Currently, pt received blood transfusion in morning and became intermittently hypotensive (dropping from 140s/90s to the 100s/70s). After recheck a few minutes after, bp went back to baseline with a MAP of 88. The hypotensive episode likely 2/2 mechanical issue of the cuff. Pt is alert and oriented x3 in no acute respiratory distress on 4L of oxygen NC. Pt states feeling well and denies headache, SOB, chest pain, nausea, and abdominal pain. She notes fatigue and weakness, understandable givenhospital course. PRN meds used in last 24hrs: heparin injection Review of Systems Constitutional: Positive for fatigue. Negative for appetite change, chills, diaphoresis and fever. HENT: Positive for trouble swallowing. Negative for congestion. Respiratory: Negative for apnea, cough, chest tightness, shortness of breath, wheezing and stridor. Cardiovascular: Negative for chest pain, palpitations and leg swelling. Gastrointestinal: Negative for abdominal pain, anal bleeding, blood in stool, constipation and diarrhea. Neurological: Positive for weakness. Negative for speech difficulty, light- headedness, numbness andheadaches. Psychiatric/Behavioral: Negative for agitation, confusion and sleep disturbance. Scheduled Meds:busPIRone, 7.5 mg, Oral, BID gabapentin, 200 mg, Oral, BID Glycopyrrolate-Formoterol, 2 puff, Inhalation, BID heparin, 5,000 Units, SubCUTAneous, 2 times per day insulin glargine, 3 Units, SubCUTAneous, Nightly insulin lispro, 0-6 Units, SubCUTAneous, TID WC And insulin lispro, 0-6 Units, SubCUTAneous, Nightly [Held by provider] metoprolol tartrate, 50 mg, Oral, BID mirtazapine, 7.5 mg, Oral, Nightly pantoprazole, 40 mg, Oral, Nightly Or pantoprazole (ProtoNix) 40 mg in sodium chloride (PF) 0.9 % 10 mL injection, 40 mg, IntraVENous, Nightly sodium chloride 0.9%, 10 mL, IntraCATHeter, q12h Continuous Infusions: Objective: BP 102/72 (BP Location: Left arm, Patient Position: Lying) Pulse 72 Temp 36.7 C (98 F) (Temporal) Resp 18 Ht 5' 5.98 (1.676 m) Wt 133 lb 6.1 oz (60.5 kg) SpO2 100% BMI 21.54 kg/m Physical Exam Constitutional: General: She is not in acute distress. Appearance: Normal appearance. She is normal weight. She is not ill-appearing, toxic-appearing or diaphoretic. HENT: Head: Normocephalic. Nose: No congestion. Cardiovascular: Rate and Rhythm: Normal rate and regular rhythm. Pulses: Normal pulses. Heart sounds: Normal heart sounds. No murmur heard. No friction rub. No gallop. Pulmonary: Effort: Pulmonary effort is normal. No respiratory distress. Breath sounds: Normal breath sounds. No stridor. No wheezing, rhonchi or rales. Chest: Chest wall: No tenderness. Abdominal: General: Bowel sounds are normal. Skin: General: Skin is warm. Neurological: General: No focal deficit present. Mental Status: She is alert and oriented to person, place, and time. Mental status is at baseline. Psychiatric: Mood and Affect: Mood normal. Behavior: Behavior normal. Thought Content: Thought content normal. Judgment: Judgment normal. Select Labs within last 24 hours Auto WBC Date Value Ref Range Status 08/06/2024 6.5 3.6 - 10.7 10*3/uL Final Hemoglobin Date Value Ref Range Status 08/06/2024 6.6 (LL) 11.7 - 16.0 g/dL Final Hematocrit Date Value Ref Range Status 08/06/2024 21.6 (L) 35.0 - 47.0 % Final Platelets Date Value Ref Range Status 08/06/2024 120 (L) 140 - 440 10*3/uL Final MCV Date Value Ref Range Status 08/06/2024 93.1 77.0 - 99.0 fL Final SODIUM Date Value Ref Range Status 08/06/2024 133 (L) 135 - 145 mmol/L Final POTASSIUM Date Value Ref Range Status 08/06/2024 3.1 (L) 3.5 - 5.1 mmol/L Final CHLORIDE Date Value Ref Range Status 08/06/2024 99 98 - 107 mmol/L Final CARBON DIOXIDE Date Value Ref Range Status 08/06/2024 32 (H) 22 - 30 mmol/L Final UREA NITROGEN Date Value Ref Range Status 08/06/2024 16 7 - 17 mg/dL Final CREATININE Date Value Ref Range Status 08/06/2024 1.40 (H) 0.52 - 1.04 mg/dL Final GLUCOSE Date Value Ref Range Status 08/06/2024 184 (H) 70 - 100 mg/dL Final CALCIUM Date Value Ref Range Status 08/06/2024 7.4 (L) 8.4 - 10.4 mg/dL Final MAGNESIUM Date Value Ref Range Status 08/06/2024 1.9 1.6 - 2.3 mg/dL Final PHOSPHORUS Date Value Ref Range Status 08/06/2024 2.2 (L) 2.5 - 4.5 mg/dL Final No results found for: AST, ALT, PROT, BILITOT, ALKPHOS, INR, APTT, LIPASE No results found for: CKTOTAL, CKMB, TROPONINI No results found for: PROCAL, CHOL, TRIG, HDL, TSH, VITD25, HGBA1C, VANCOTROUGH Assessment and Plan: Septic shock 2/2 Polymicrobial PNA; Per ID stewardship, Tx with mary ann 07/27-08/02 Covid pos at OSH, micro testing pos for non-COVID coronavirus on admission Acute on Chronic Hypoxemic, Hypercapnic Resp failure - extubated 07/30 - Initial infectious workup returned with CTX-M Pseudomonas and S aureus - Procal 0.16 (08/05) - Lactic acid .5 (08/05) - WBC 6.5 (08/06) - patient is resting comfortably with no chest pain or SOB noted, L CTA - Saturating at 100% on 4 L NC, home requirement of 3 L NC 2/2 COPD - Off antibiotics Plan: - Continue spirometry - Maintain O2 saturation between 88-92% 2/2 COPD Trace Subdural Hematoma, Right-sided, Stable - notes patient fell about 1 month prior to admission and hit head - CT revealed trace R SDH Plan: - Stable no follow up needed UMA on CKD stage 4 - On admit, (07/26) Cr 4.56, CRRT initiation for severe acidosis in setting of hemodynamic instability 07/26-08/01. - Today (08/06) Cr 1.40 (downtrending), eGFR 42.1 - Renal function downtrending (BUN of 16 today) - nephro following Plan: - TTS dialysis schedule - Will continue to monitor BMP for renal recovery Dysphagia, Mild - Speech therapy evaluated at bedside; recommend continuation of acute MULTIFOCAL LENS ASSEMBLER therapy - Diet order on pureed solids and Mildly thick liquids and meds whole in puree or crushed in puree Acute on chronic anemia - Hgb 6.6, received 1 unit of blood in morning (08/06) - Remains clinically stable Plan: - Continue to monitor Hgb and transfuse per protocol Hgb <7 T1DM -POCT glucose 333 -Pt on basal Lantus 3 units and SSI Humalog Plan: - Change to Lantus 5 units with MDSSI Electrolyte Derangements -Phos 2.2, Na 133, K 3.1 Plan: - K and Phos Repleted - Continue daily BMP Disposition: Awaiting placement Associated attestation - Fly De La Garza DO - 08/06/2024 2:43 PM EDT I saw and evaluated the patient. I agree with the findings and plan of care as documented in the resident's note, except as noted in Green text. Patient seen and examined personally during bedside teaching rounds (Date of Service: 08/06/24) Cantrell Changes to Care Plan: -Back to baseline amount of supplemental oxygen, she has COPD so her O2 target should be between 88to 92% -UMA on CKD 4, with nephrology following and monitoring needs of continuing dialysis -She did require transfusion as her hemoglobin dropped below 7 today, but no other acute signs of bleeding. 7AM-5PM: contact resident on [facility] A (find by hovering over attending's name on left side of patient's chart) 5PM-7AM: contact AI3 res * GUILLERMO Arndt - 08/05/2024 12:33 PM EDT Images from the original note were not included. OCCUPATIONAL THERAPY [facility] Treatment Note Name/MRN: Sandy Deng ([id number]) Date of : 1960 Age: 63 y.o. Room/Bed: T2-213/T2-213 A Discharge Recommendation: IP Rehab (If family declines IPR, recommend 24 hour assist with home health OT) Other: Continue to assess pending progress. Prior Level of Function ADL Assistance: Independent Ambulation Assistance: Independent Device(s) used: Front wheeled walker Transfer Assistance: Independent Assessment Pt. Seated in her recliner. Nursing ok 'ed OT to work with pt. Pt. Was able to wash/dry hands and face and brush teeth with SBA. Sit<->stand, standing and transfer min-mod assist. Pt. Then return back to recliner to eat lunch. Pt. Is not at base line and would continue to benefit from OT. OT recommend IP Rehab at discharge. Subjective Pt. Agreeable to OT. Pt. Remains in recliner to eat lunch. Pain: Pt denies any current pain. Medical Precautions: No active isolations Proper PPE donned/doffed in accordance with facility standards. Fall Risk: Bunn Fall Risk Score: 40 (Medium Risk) Precautions/Restrictions: Lines/Drains/Airways: PIV, johnson, NC 2L (pt on 3L at home per ) Fall Precautions Family/Caregiver Present: none Objective ADLs Grooming: SBA Pt. Wash/dry hands and face as well as brush teeth with set up sitting in her recliner. Transfers/Mobility Sit to stand: Min Assist, Mod Assist Stand to sit: Min Assist Stand step: Min Assist, Mod Assist Bedside commode: Min Assist, Mod Assist Sitting balance: SBA to maintain balance sitting EOB Standing balance: Mod Assist Pt. Stood with OT 1-2 min's with mod assist due to retro-grade balance Device(s) used: [facility] [place] Cognition - Arousal/alertness: appropriate responses to stimuli - Following commands: follows one step commands with increased time and follows one step commands with repetition - Attention span: appears intact - Memory: appears intact - Safety judgement: decreased awareness of need for assistance and decreased awareness of need for safety - Insights: decreased awareness of deficits - Initiation: does not require cues - Sequencing: does not require cues Plan Continue acute OT per plan of care. Safety/Education Safety Safety Devices in place: All fall risk precautions in place, call light within reach, left in chair, gait belt, patient at risk for falls, nurse notified, and no alarms engaged upon entry Restraints: No Education Education Given To: patient Education Provided: OT Role, Plan of Care, ADL Adaptive Strategies, and Transfer Training Education Method: Verbal and Demonstration Barriers to Learning: None Education Outcome: Verbalized Understanding, Demonstrated Understanding, and Continued Education Needed AM-PAC AM-PAC Inpatient Daily Activity Raw Score: 15 ADL Inpatient CMS G-Code Modifier: CK Goals Patient Stated Goal: To go home. Encounter Problems Encounter Problems (Active) Balance Patient will maintain dynamic standing balance for 5-10 minutes with min assist in order to demonstrate decreased risk of falling. (Slowly Progressing) Start: 08/02/24 Expected End: 08/30/24 Bathing Patient will utilize adaptive techniques to bathe body with Min A (Not Addressed) Start: 08/02/24 Expected End: 08/30/24 Dressing Upper Extremities Patient will complete upper body dressing with SBA (Not Addressed) Start: 08/02/24 Expected End: 08/30/24 Dressings Lower Extremities Patient will dress lower body with Min A (Not Addressed) Start: 08/02/24 Expected End: 08/30/24 Mobility Patient will demonstrate functional ambulation with Mod A (Not Addressed) Start: 08/02/24 Expected End: 08/30/24 Transfers Patient will complete functional transfer with least restrictive device with min assist in order toprepare for ambulation. (Slowly Progressing) Start: 08/02/24 Expected End: 08/30/24 Patient will perform bed mobility with CGA in order to improve independence and prepare for out of bed mobility. (Not Addressed) Start: 08/02/24 Expected End: 08/30/24 Therapy Time Individual Co-treatment Time In 1200 Time Out 1215 Minutes 15 Timed Code Treatment Minutes: 15 Minutes (selfcare-1) GUILLERMO Betancourt * Isreal Macdonald MD - 08/05/2024 11:22 AM EDT ICU Progress Note Name: Sandy Deng : 1960(63 y.o.) Date: 08/05/24 Team: MICU Attending: Saroj Sadler MD Subjective: Hospital Summary: Found to have a subdural hematoma. She reportedly had a fall 1 month ago from bed. states she hit her head on the nightstand. She is on Plavix and ASA for a stent placed 7 years ago. Pt tested positive for COVID on 07/24. At [facility] ICU she had worsening hypoxia and was placed on NIV but failed. Was ultimately intubated. Noted to be hypotensive and started on levophed. Ptwas transferred to [facility] for higher level of care. On arrival she was noted to have reduced urine output. Pt reportedly with CKD 4 and family states has been told in the past she may need HD in the future 07/27: Overnight, patient had dialysis catheter placed and was started on CRRT. Initial infectious workup returned with CTX-M Pseudomonas and S aureus identified on pneumonia PCR. 07/29: Notably arrhythmic on tele (trigeminy/bigeminy), CMP ordered - Ca low. Discussed with nephro - increased lab frequency: BMP, Mg, Phos, and iCal Q6H to allow for aggressive repletion of electrolyte derangements. 07/30: S/P Tunneled HD catheter by IR 07/29. Tolerated procedure well. Was hypoglycemic overnight at <50. Received dextrose. Pt attempted to rip out ET tube and pulled it out by 3cm. Completed pulled out OG. S/P extubation at 4:20pm. 07/31: Pt removed johnson. 08/01: Planning to transition from CRRT to iHD per nephro. Johnson replaced and pt had around 150mL out. 08/03: HD session (TTS), per nephro, stable urine output. 08/04: Fluctuating BP ith highest systolic BP being around 170 mm Hg and lowest around 100 mmHg. Restarted Humalog injection subQ, discontinue insulin regular, hydralazine and labetalol. Restarted gabapentin at 200 mg Interval Events: Around 230 am, pt MAP dropped to 58 mm Hg and became chantell cardiac (51 bpm). BMP, lactic acid level, ECG, and CXR were ordered. Pt given albumin and lopressor was held. This morning,she states that she is tired. Very hard to arouse, but is ANOx3. Denies fevers, chills, CP, SOB, headaches, or sick symptoms. Was unable to answer any further questions due to drowsiness/sleepiness. Scheduled Meds:busPIRone, 7.5 mg, Oral, BID gabapentin, 200 mg, Oral, BID Glycopyrrolate-Formoterol, 2 puff, Inhalation, BID heparin, 5,000 Units, SubCUTAneous, 2 times per day insulin glargine, 3 Units, SubCUTAneous, Nightly insulin lispro, 0-6 Units, SubCUTAneous, TID WC And insulin lispro, 0-6 Units, SubCUTAneous, Nightly [Held by provider] metoprolol tartrate, 50 mg, Oral, BID mirtazapine, 7.5 mg, Oral, Nightly pantoprazole, 40 mg, Oral, Nightly Or pantoprazole (ProtoNix) 40 mg in sodium chloride (PF) 0.9 % 10 mL injection, 40 mg, IntraVENous, Nightly sodium chloride 0.9%, 10 mL, IntraCATHeter, q12h Continuous Infusions: Objective: Last Vitals: BP MAP 147/54 (08/05/24 1100) 78 (08/05/24 1100) Arterial BP MAP 99/37 (07/31/24 1320) 54 mmHg (07/31/24 1320) Temp 36.7 C (98.1 F) (08/05/24 0800) Pulse 74 (08/05/24 1100) Resp 22 (08/05/24 1100) SpO2 100 % (08/05/24 1100) Weight 60.5 kg (133 lb 6.1 oz) (08/05/24 0500) BMI Body mass index is 21.54 kg/m . I/O: 08/04 07 - 08/05 659 In: 535 [P.O.:275; I.V.:60] Out: 175 [Urine:175] Ventilator: Resp Rate (Set): 16 Vt (Set, mL): 470 mL FiO2 (%): 30 % PEEP/CPAP (cm H2O): 8 cm H20 Inspiratory Time (sec): 1 sec Oxygen Delivery: O2 Flow Rate (L/min): 2 L/min Invasive Lines / Tubes / Drains: Peripheral IV 08/01/24 Anterior;Right Forearm (Active) Number of days: 8 Peripheral IV 08/04/24 Right Antecubital (Active) Number of days: Urethral Catheter Straight-tip;Temperature probe (Active) Number of days: 3 Hemodialysis Cath Double Lumen 08/02/24 Right Tunneled catheter Subclavian (Active) Number of days: 5 Central Line Indication: Hemodialysis Johnson Indications: Hourly I&Os (Critical Care ONLY) Restraints: Restraints Non-Violent Or Non-Self Destructive Jul 27, 2024 3:35 Am Edt NA - patient is not restrained. Wounds: Constitutional: General Appearance [x]WDWN []Obese []Cachectic []Thin []Ill Eyes: Inspection of Pupils/Irises Pupils round and react: [x]Yes []No Sclera: []Icteric [x]Non-Icteric Inspection of Conjunctiva/Lids Conjunctiva: []Injected [x]Non-Injected Lids: [x]Intact []Lesion Present ENT/Mouth: External Inspection of ears/nose [x] Normal [] Scar/Lesion/Mass Inspection of teeth/lips/gums Dentition: [][place] Teeth []Dentures Lips/Gums: [x]Intact []Lesion Present Mucosa: [x]Pinson [x]Moist []Dry Neck: External Appearance Overall Appearance: [x]Normal []Lesion/Mass/Crepitus Present Trachea midline: [x]Yes []No Thyroid [x]Normal []Enlarged []Tender []Mass []Absent Respiratory: Respiratory effort []Labored [x]Non-Labored [] Mechanically-Ventilated Auscultation [x]Clear []Crackles []Wheezes []Rhonchi Cardiovascular: Auscultation Rate: [x]Regular []Irregular []Tachycardia []Bradycardia Rhythm: [x]Regular []Irregular Murmur: []Present [x]Absent Extremities Peripheral Edema: []Present [x]Absent Varicosities: []Present [x]Absent Gastrointestinal: Abdomen Palpation: []Soft [x]Firm []Tender [x]Non-Tender []Distended [x]Non-distended Mass: []Present [x]Absent Bowel Sounds: [x]Present []Absent Hernia: []Present []Absent Liver/Spleen: []Hepatosplenomegaly [x]Organomegaly Absent Musculoskeletal: Inspection of Digits and Nails Cyanosis: []Present [x]Absent Clubbing: []Present [x]Absent Ischemia: []Present [x]Absent Infection: []Present [x]Absent Extremities ROCHE Equally: Except ([]RUE []RLE []LUE []LLE) Strength/Tone: Intact and Normal ([]RUE []RLE []LUE []LLE) Skin: Inspection [x]Normal []Rash []Lesion []Ulcer Palpation [x]Warm []Cool [x]Dry []Clammy []Nodules []Induration []Skin-tightening Cap-Refill: [] <3 sec [] >3 seconds (delayed) Neurologic: GCS EYE: 4 - Opens spontaneously GCS MOTOR: 6 - Obeys commands for movement GCS VERBAL: 5 - Oriented to person, place, time Total GCS: 15 [x] Sensation grossly intact Psych: Mental Status Alert: [x]Yes [] No Oriented: []x0 []X1 []X2 [x]x3 Mood/Affect [x]Normal []Flat []Agitated []Depressed []Anxious []Calm []Sedated []NAD [facility] within last 24 hours- BMP: Recent Labs 08/03/24 0022 08/04/24 0315 08/05/24 0256 NA 137 134* 132* K 4.3 3.6 4.0 CL 110* 104 105 CO2 26 26 26 BUN 28* 24* 35* CREATININE 2.29* 1.88* 2.56* CALCIUM 7.4* 7.0* 6.7* MG 2.4* 2.0 2.2 PHOS 3.4 3.4 3.6 LFTs:No results for input(s): AST, ALT, PROT, ALBUMIN, BILITOT, BILIRUBINU, ALKPHOS, LIPASE in the last 72 hours. Glucose: Recent Labs 08/03/24 0022 08/03/24 0603 08/03/24 1140 08/03/24 1754 08/03/24 2337 08/04/24 0315 08/04/24 0515 08/04/24 1146 08/04/24 1606 08/04/24 2045 08/05/24 0256 08/05/24 0830 GLUCOSE 87 -- -- -- -- 119* -- -- -- -- 151* -- POCGLU -- < > 173* 93 118* -- 113* 191* 181* 167* -- 139* < > = values in this interval not displayed. Procal: No results for input(s): PROCAL in the last 72 hours. CBC: Recent Labs 08/03/24 0022 08/04/24 0315 08/05/24 0256 WBC 10.8* 8.5 7.4 HGB 8.5* 8.3* 7.4* HCT 28.6* 26.5* 23.6* PLT 210 178 168 MCV 92.3 91.1 90.4 RDW 18.1* 17.4* 17.7* ABGs: No results for input(s): PHART, WPR3TIH, PO2ART, DSD4OQL, SO2ART, J9VQEKKN in thelast 72 hours. Lactic Acid: Recent Labs 08/05/24 0256 LACTATE 0.5* INR: No results for input(s): INR in the last 72 hours. Cardiac Injury Profile: No results for input(s): CKTOTAL, CKMB, TROPONINI in the last 72 hours. Labs in Last 3 months: Lab Results Component Value Date TSH 3.472 07/26/2024 Microbiology- Urine Cx: No results found for: URINECX Blood Cx: No results found for: BLOODCX Sputum Cx: Lab Results Component Value Date RESPCULT Rare respiratory keven present. 07/27/2024 RESPCULT Few Staphylococcus aureus (A) 07/27/2024 Gram Stain: Lab Results Component Value Date LABGRAM (A) 07/27/2024 Many Polymorphonuclear leukocytes per low power field LABGRAM Few Epithelial cells per low power field (A) 07/27/2024 LABGRAM Moderate Gram positive cocci (A) 07/27/2024 PNA PCR: Lab Results Component Value Date HUMANMETAPNE Not Detected 07/27/2024 COVID19: No results found for: COVID19 Legionella Ag: Lab Results Component Value Date LEGIONELLAPN Not Detected 07/27/2024 Strep Ag: No results for input(s): STREPPNEUMO in the last 72 hours. Imaging- Exam Date/Time: 08/05/2024 03:09 Procedure: XR CHEST 1 VIEW Ordering Provider: SADLER MICHAEL Reason For Exam: Rhonchi, clinically decompensating IMPRESSION: 1. Hazy airspace opacities projecting over the right lung base, which could relate to pneumonia in the appropriate clinical setting. 2. Suspect small to moderate right pleural effusion. 3. Chronic appearing lung changes. Exam Date/Time: 08/04/2024 14:31 Procedure: FL MODIFIED BARIUM WITH VIDEO AND SPEECH Ordering Provider: SADLER MICHAEL Reason For Exam: DYSPHAGIA IMPRESSION: Vocal cord penetration with silent airway aspiration. Cervical osteophytes. Assessment and Plan: Principal Problem: SDH (subdural hematoma) ([facility]) Active Problems: COPD (chronic obstructive pulmonary disease) (HCC) Type 1 diabetes mellitus with kidney complication (HCC) Hyperlipidemia Diabetic neuropathy associated with type 1 diabetes mellitus (HCC) Assessment: Concern for Aspiration Pneumonia; based on CXR and Barium swallow. Patient also endorses severe dysphagia (as confirmed by speech therapy) and felt as if she may have possibly aspirated UMA on CKD stage 4, HD TTS; oliguric (urine output 175 mL) could be 2/2 to transient decrease in MAP BP variations (highest systolic pressure of around 170 mm Hg and lowest 103 mm Hg) and bradycardia.Currently stable at 147/54. Acute on chronic anemia Acute on Chronic Hypoxemic, Hypercapnic Resp failure - extubated 07/30 Septic shock 2/2 Polymicrobial PNA; Per ID stewardship, Tx with mary ann 07/27-08/02 Covid pos at OSH, micro testing pos for non-COVID coronavirus on admission T1DM COPD Stable SDH (identified 07/26) Plan: Renal function down-trending (BUN of 35 today). HD scheduled today (TTS) with nephro following; continue to monitor BMP. Speech therapy evaluated at bedside; recommend continuation of acute MULTIFOCAL LENS ASSEMBLER therapy On Pureed solids and Mildly thick liquids and meds whole in puree or crushed in puree Discontinue gabapentin given low dose and possible renal function interference - possible source ofAM grogginess Order Procal; initiate Unasyn if elevated to cover for possible underlying aspiration PNA Order POCT glucose; continue Humalog and Lantus injection subQ Continue to monitor Hgb and transfuse per protocol Hgb <7 Remains clinically stable for floor transfer Continued PT/OT GI Prophylaxis: Pantoprazole IV DVT Prophylaxis: Heparin subcutaneous Disposition: Remain in ICU Status Resident Attestation: I performed an independent exam and agree with the above medical student exam. I agree with above assessment and plan. Any changes were made to the above documentation as needed. Isreal Macdonald MD PGY-2 08/05/24 12:34 PM Associated attestation - Saroj Sadler MD - 08/05/2024 12:49 PM EDT I saw and evaluated the patient, participating in the cantrell portions of the service. I reviewed the resident s note. I agree with the resident s findings and plan. Some hypotension overnight. Will hold BP meds and reduce doses of the neuropathic medications. Suspect patient continues to aspirate as has developed new right sided infiltrate/effusion. May need thoracentesis. Consider abx if worsening status or fevers. Saroj Sadler MD * Jennifer Saldaña - 08/05/2024 10:36 AM EDT Images from the original note were not included. PHYSICAL THERAPY [facility] Treatment Note Name/MRN: Sandy Deng ([id number]) Date of : 1960 Age: 63 y.o. Room/Bed: T2-213/T2-213 A Discharge Recommendation: Continue to assess pending progress, IP Rehab Equipment Needed: No Other: pt will benefit from use of FWW while in acute therapies Prior Level of Function ADL Assistance: Independent Ambulation Assistance: Independent Device(s) used: Straight Cane Transfer Assistance: Independent Assessment Pt presents with general weakness and decreased endurance. Pt requires frequent rest breaks throughout session and appears fatigued following session with whispered tone. Pt states she feels very weak. She requires mod assist for transfers with FWW and mod assist for ambulation. She is making good progress towards her goals. Pt will benefit from continued therapies to address functional limitations and deficits in strength, balance, and endurance. Recommend IPR on discharge. She has good potential to tolerate 3 hours of therapies. Subjective Pt up in chair on arrival and agreeable to physical therapy. Pt more alert today with increased tone. Pt has no c/o pain today. She is in 2L NC. Pt vitals remain WFL during session. Pain: Pt denies any current pain. Medical Precautions: No active isolations Proper PPE donned/doffed in accordance with facility standards. Fall Risk: Bunn Fall Risk Score: 40 (Medium Risk) Precautions/Restrictions: Lines/Drains/Airways: PIV, johnson, NC 2L (pt on 3L at home per ) Fall Precautions Overall Cognitive Status: WFL Overall Orientation Status: Family/Caregiver Present: spouse Objective Bed Mobility Scooting: pt scoots back in chair with SBA and minimal cues for setup and positioning. Transfers/Mobility Sit to stand: Mod Assist Stand to sit: Mod Assist Sitting balance: Supervision Standing balance: Min Assist Device(s) used: Front wheeled walker Ambulation Ambulation 1 Assistive device(s) used: Front wheeled walker Assist level: Mod Assist Distance (ft): 6 steps (3 fwd, 3 retro) Quality of gait: antalgic, shuffling, slow amanda, instability through all phases Ambulation 2 Assistive device(s) used: Front wheeled walker Assist level: Mod Assist Distance (ft): 10 steps (5 fwd, 5 retro) Quality of gait: antalgic, shuffling, slow amanda, instability through all phases Balance During Session: Posture: fair Sitting - Static: Supervision Sitting - Dynamic: Supervision Standing - Static: Min Assist Standing - Dynamic: Mod Assist Pt completes 3x sit to stand throughout session. She sat up in the chair with back unsupported for 2 minutes. Pt stood for 1 minute following each stand. Pt required seated rest between reps with back supported. Recovery in 2 minutes. Exercises Pt completed exercises sitting in chair, back not supported with supervision x5 ea LE: marching, LAQ, knee flexion with green theraband, heel raises Pt educated on and performed x10 incentive spirometer. Plan Continue acute PT per plan of care. Safety/Education Safety Safety Devices in place: All fall risk precautions in place, call light within reach, left in chair, chair alarm in place, gait belt, patient at risk for falls, nurse notified, and no alarms engaged upon entry Restraints: No Education Education Given To: patient and Education Provided: PT Role, PT Goals, Gait Training, Plan of Care, Home Exercise Program, Fall Prevention Education, Discharge Recommendations, Benefits of Increasing Activity, and Breathing Techniques Education Method: Verbal Barriers to Learning: None Education Outcome: Verbalized Understanding Outcome Measures AM-PAC AM-PAC Inpatient Mobility Raw Score (No Stairs) : 12 JH-HLM -HLM Score: Static standing (1 or more minutes) Goals Patient Stated Goal: pt and spouse would like her to go home Encounter Problems Encounter Problems (Active) Balance Patient will maintain static standing balance for 3 minutes with min assist in order to demonstratedecreased risk of falling. (Progressing) Start: 08/03/24 Expected End: 08/31/24 Patient will maintain static sitting balance for 3 minutes with supervision in order to demonstrateimproved postural control and prepare for out of bed mobility. (Progressing) Start: 08/03/24 Expected End: 08/31/24 Mobility Patient will ambulate 50 feet with min assist and rolling walker in order to improve safety and independence with mobility. (Progressing) Start: 08/03/24 Expected End: 08/31/24 Transfers Patient will perform bed mobility with supervision in order to improve independence and prepare forout of bed mobility. (Progressing) Start: 08/03/24 Expected End: 08/31/24 Patient will complete functional transfer with rolling walker with min assist in order to prepare for ambulation. (Progressing) Start: 08/03/24 Expected End: 08/31/24 Therapy Time Individual Co-treatment Time In 0939 Time Out 1006 Minutes 27 Timed Code Treatment Minutes: (1 FA, 1 TP) Jennifer Saldaña, JEY * Svitlana Albarran, CCC-MULTIFOCAL LENS ASSEMBLER - 08/05/2024 9:22 AM EDT Images from the original note were not included. Speech-Language Pathology SPEECH LANGUAGE PATHOLOGY [facility] Dysphagia Treatment Note Patient Name: Sandy Deng Evaluation Date: 08/05/2024 Date of : 1960 Admission Date: 07/26/2024 4:17 PM Age: 63 y.o. Room/Bed: T2-213/T2-213 A Subjective Patient alert and cooperative. Seen upright in bedside chair. Answers all basic questions with softvocal quality; patient appeared to have decreased respiratory support resulting in decreased volume. Follows some basic commands. RN briefly in room to administer medications. Spoke with MOODY Yeboah who cleared pt for treatment. Current Diet: Dietary Orders (From admission, onward) Start Ordered 08/04/24 1610 Adult diet Dysphagia - Pureed; Mildly Thick ([place]) Diet effective now Comments: Medications crushed and placed in pureed foods. Question Answer Comment Diet type Dysphagia - Pureed Fluid consistency Mildly Thick ([place]) 08/04/24 1611 08/03/24 1639 Supplement:PM Snack, HS Snack; Vanilla Ensure High Protein Until discontinued Question Answer Comment Frequency PM Snack Frequency HS Snack Select supplement: Vanilla Ensure High Protein 08/03/24 1638 Aspiration Precautions: - Upright positioning for all PO intake - Slow rate of intake - Small bites + single sips - 1:1 Assistance - Swallow x 2 per bolus Oxygen: Oxygen Therapy: Supplemental oxygen O2 Delivery Method: Nasal cannula O2 Flow Rate (L/min): 2 L/min Pain: Pt denies any current pain. PPE Worn: gloves Objective & Assessment Dysphagia Treatment # of Activities: 2 Dysphagia Activity 1: Assess diet tolerance Dysphagia Activity 2: Oropharyngeal strengthening Patient seen with breakfast tray - puree eggs, cream of wheat, and orange juice. Patient also accepted medications halved/whole in applesauce, and met same without overt s/sx of aspiration or penetration. Encouraged patient to utilize safe swallow strategies of double swallow, effortful swallow, and small bites and sips. Patient was able to feed self, however demonstrated impulsivity with bite size and required frequent cueing to take small bites. One instance of coughing noted after two large bites of cream of wheat; patient then assisted with meal due to difficulty with smaller bites. Liquid trials met with clinically adequate oral bolus control, occasionally clinically delayed swallow per palpation, and no overt s/sx of aspiration or penetration. Note: Patient with silent aspiration ofthin liquids previous date. Patient educated on effortful swallows and encouraged to perform same with cream of wheat and sips of orange juice. Question effort with same given increased confusion and decreased direction following for swallow strategies. Patient deferred further trials and exercises after eating eggs and half of her cream of wheat. Plan & Recommendations Plan: Continue acute MULTIFOCAL LENS ASSEMBLER therapy per initial plan of care and established goals. Recommend Pureed solids and Mildly thick liquids and meds whole in puree or crushed in puree and the following precautions: - Upright positioning for all PO intake - Slow rate of intake - Small bites + single small sips - 1:1 Assistance - Swallow x 2 per bolus D/C Recommendations: ongoing speech therapy at next level of care Education Education Given: safety, swallowing strategies, diet recommendations, education of oropharyngeal/oral motor exercise for strengthening Given To: patient and RN Response: verbalizes understanding Goals Patient Stated Goal: I'm full Encounter Problems Encounter Problems (Active) Swallowing Patient will tolerate recommended food and liquid consistencies without clinical signs and symptomsof aspirations (Progressing) Start: 07/31/24 Expected End: 08/15/24 Patient will participate in repeat clinical dysphagia evaluation (Completed) Start: 07/31/24 Expected End: 08/02/24 Resolved: 08/01/24 Patient will tolerate the least restrictive diet consistency to allow for safe consumption of dailymeals (Progressing) Start: 08/01/24 Expected End: 08/15/24 Patient will participate in instrumental assessment of swallowing as appropriate (Completed) Start: 08/04/24 Expected End: 08/18/24 Resolved: 08/04/24 Patient will complete oropharyngeal strengthening exercises to improve swallow function (Progressing) Start: 08/04/24 Expected End: 08/18/24 Therapy Time MULTIFOCAL LENS ASSEMBLER Individual Minutes Time In: 08 Time Out: 909 Minutes: 17 Svitlana Albarran CCC-MULTIFOCAL LENS ASSEMBLER * Jose Carlos Medrano MD - 08/05/2024 8:09 AM EDT Images from the original note were not included. NEPHROLOGY SOAP NOTE Visit date: 08/05/24, 8:10 AM Patient: Sandy Deng Room number: T2-213/T2-213 A Date of Admit: 07/26/2024 LOS: 10 days Referring physician: Saroj Sadler MD Outpatient X Ray Inspector: Christy Huerta DO ASSESSMENT/PLAN: UMA on CKD 4 - Cr has been 2.4-2.8, last (04/26) Cr 2.4 eGFR 20, 24 hr sthpzkf=2608 mg. - On admit, (07/26) Cr 4.56, CRRT initiation for severe acidosis in setting of hemodynamic instability 07/26-08/01. - oliguric, transitioned to intermittent HD - pt has TDC - plan TTS dialysis schedule for now, will continue to monitor for renal recovery 2. Electrolytes - last Na was 132 - K 4.0 3. Acid-base - bicarb stable at 26 - managed with dialysis 4. BP/volume status: - last BP 134/52, average 121/58 last 24 hours - she has prn hydralazine ordered - hold off on starting ACEi/ARB due to UMA - targeting 1-2 liter UF with dialysis - consider addition of diuretic therapy (if BP tolerates) 5. Anemia - Hgb 7.4 - pRBC needs per primary team 6. ID - meropenem and remdesivir completed Adjust medications based on: Estimated Creatinine Clearance: 20.8 mL/min (A) (by C-G formula based on SCr of 2.56 mg/dL (H)). SUBJECTIVE: Patient with chronic, stable medical conditions as documented in the initial consultation. Interval history reviewed: no acute events Patient sleeping comfortably this AM OBJECTIVE: CURRENT MEDICATIONS: busPIRone, 7.5 mg, Oral, BID gabapentin, 200 mg, Oral, BID Glycopyrrolate-Formoterol, 2 puff, Inhalation, BID heparin, 5,000 Units, SubCUTAneous, 2 times per day insulin glargine, 3 Units, SubCUTAneous, Nightly insulin lispro, 0-6 Units, SubCUTAneous, TID WC And insulin lispro, 0-6 Units, SubCUTAneous, Nightly [Held by provider] metoprolol tartrate, 50 mg, Oral, BID mirtazapine, 7.5 mg, Oral, Nightly pantoprazole, 40 mg, Oral, Nightly Or pantoprazole (ProtoNix) 40 mg in sodium chloride (PF) 0.9 % 10 mL injection, 40 mg, IntraVENous, Nightly sodium chloride 0.9%, 10 mL, IntraCATHeter, q12h PHYSICAL EXAMINATION: Visit Vitals BP 134/52 Pulse 73 Temp 36.3 C (97.3 F) (Temporal) Resp 18 Ht 1.676 m (5' 5.98) Wt 60.5 kg (133 lb 6.1 oz) SpO2 100% BMI 21.54 kg/m BSA 1.68 m Admit Wt: Weight: 48 kg (105 lb 13.1 oz) Todays Wt: Weight: 60.5 kg (133 lb 6.1 oz) Average, Min, and Max for last 24 hours Vitals: TEMPERATURE: Temp Av.3 C (97.3 F) Min: 36.2 C (97.2 F) Max: 36.3 C (97.4 F) RESPIRATIONS RANGE: Resp Av.7 Min: 17 Max: 21 PULSE RANGE: Pulse Av.9 Min: 51 Max: 73 BLOOD PRESSURE RANGE: Systolic (24hrs), Av , Min:95 , Max:144 Diastolic (24hrs), Av, Min:42, Max:91 PULSE OXIMETRY RANGE: SpO2 Av.1 % Min: 84 % Max: 100 % Estimated body mass index is 21.54 kg/m as calculated from the following: Height as of this encounter: 1.676 m (5' 5.98). Weight as of this encounter: 60.5 kg (133 lb 6.1 oz). Intake/Output Summary (Last 24 hours) at 08/05/2024 0810 Last data filed at 08/05/2024 0535 Gross per 24 hour Intake 535 ml Output 175 ml Net 360 ml General Appearance no acute distress, awake and alert but appears anxious HEENT Neck anicteric sclera, moist mucus membranes, normal external ears/nares, no facial edema Supple neck, midline trachea without tracheal deviation Chest symmetric, normal shape/expansion, no chest wall/sternal tenderness; R TDC Heart RRR, no audible pericardial rubs, no audible murmurs Lungs Coarse breath sounds Abdomen Skin soft without distension, normal bowel sounds, no grimacing on palpation no rash or subcutaneous nodules, warm and dry skin with good turgor Musculoskeletal 1+ dependent U/LE edema + johnson catheter present Neurologic no resting tremor or myoclonus DATA: LABS: Recent Labs 08/03/242108/04/2431408/05/24255 WBC 10.8* 8.5 7.4 HGB 8.5* 8.3* 7.4* HCT 28.6* 26.5* 23.6* MCV 92.3 91.1 90.4 PLT 210 178 168 Recent Labs 08/03/242108/04/2431408/05/24255 NA 137 134* 132* K 4.3 3.6 4.0 CL 110* 104 105 CO2 26 26 26 BUN 28* 24* 35* CREATININE 2.29* 1.88* 2.56* GLUCOSE 87 119* 151* CALCIUM 7.4* 7.0* 6.7* MG 2.4* 2.0 2.2 PHOS 3.4 3.4 3.6 ANIONGAP 1* 4 0* Lab Results Component Value Date CALCIUM 6.7 (L) 08/05/2024 CAION 3.70 (L) 08/04/2024 PHOS 3.6 08/05/2024 No results for input(s): INR, PROTIME, PTT in the last 72 hours. No results found for: IRON, TIBC, FERRITIN No results found for: [id number], FOLATE No results found for: COLORU, CLARITYU, PH, PHUR, LABSPEC, GLUCOSEU, BLOODU, LEUKOCYTESUR, NITRITE, BILIRUBINUR, UROBILINOGEN, BACTERIA, AMORPHOUS, CASTS No results found for: HAV, HEPAIGM, HEPBIGM, HEPBCAB, HBEAG, HEPCAB No lab exists for component: POCGMD No results for input(s): ALT, AST, GGT, ALKPHOS, BILITOT, LIPASE in the last 72 hours. No results for input(s): CKTOTAL, CKMB, CKMBINDEX, TROPONINI, BNP in the last 72 hours. No lab exists for component: NTPROBNP No results for input(s): CHOLTOT, TRIG, HDL, CHOLHDL, LDL in the last 72 hours. No lab exists for component: VLDCHOL No components found for: LABA1C Recent Labs 08/05/24 0256 LACTATE 0.5* No results found for: FIBRINOGEN No results for input(s): CRP in the last 72 hours. No lab exists for component: ESR No results found for: CRP Lab Results Component Value Date LABGRAM (A) 07/27/2024 Many Polymorphonuclear leukocytes per low power field LABGRAM Few Epithelial cells per low power field (A) 07/27/2024 LABGRAM Moderate Gram positive cocci (A) 07/27/2024 No components found for: LABFUNG IMAGING: XR chest 1 view Narrative: [facility] 1960 [id number] Exam Date/Time: 08/05/2024 03:09 Procedure: XR CHEST 1 VIEW Ordering Provider: SADLER MICHAEL Reason For Exam: Rhonchi, clinically decompensating EXAMINATION: XR chest AP. EXAM DATE & TIME: 08/05/2024 3:09 AM EDT INDICATION: Rhonchi, clinically decompensating ADDITIONAL INFORMATION: 53-year-old female with rhonchi and clinical decompensation presents for evaluation COMPARISON: Chest x-ray dated 07/30/2024 TECHNIQUE: Frontal view of the chest was obtained. FINDINGS: Lines/support devices: Cardiac leads project over the chest, somewhat limiting evaluation. Right internal jugular approach tunneled dialysis catheter terminates near the region of the cavoatrial junction. Cardiomediastinal silhouette: Within normal limits. Lungs/pleura: Hazy airspace opacities project over the right lung base. The right costophrenic angle is indistinct. Biapical pleural scarring is noted. Left pleural spaces are otherwise clear. No evidence of pneumothorax. There is chronic interstitial coarsening. Osseous structures: No acute osseous abnormality is demonstrated. Other findings: Hyperdensity projects over the left upper quadrant, likely related to recent ingestion from fluoroscopic swallow study. Impression: 1. Hazy airspace opacities projecting over the right lung base, which could relate to pneumonia in the appropriate clinical setting. 2. Suspect small to moderate right pleural effusion. 3. Chronic appearing lung changes. Report Dictated on Electronically Signed By: Bird Webb MD Electronically Signed Date/Time: 08/05/2024 5:44 AM EDT Signed: Jose Carlos Medrano MD Nephrology [facility] ([email or web address]) Pager: [phone] Office Office * Janell Booker MD - 08/05/2024 2:37 AM EDT Evaluated pt at bedside per RN notification of decreased MAP of 58 and HR of 51. Pt sleeping at this time, awakens to loud voice and touch. Pt continues to take shallow breaths and appear somnolent. PE unchanged from previous evaluation. BP cuff on right arm with arm bent leaning towards right sideof bed. Will give albumin to address MAP of 58 and re-evaluate need for further BP support. Will obtain BMP, lactic acid, ECG, and CXR at this time. Lopressor currently held due to bradycardia. * Janell Booker MD - 08/04/2024 10:07 PM EDT Assessed pt at bedside per RN request for drowsiness. Pt resting comfortably in bed. Initially difficult to arouse, responds promptly to family member at bedside. Pt appears somnolent, responds appropriately to commands and questions. Pt says she is not in pain and is not having trouble breathing. Pt was taking shallow breaths with times of productive cough. VSS. Physical exam significant for rhonchi of bilateral lung russell, otherwise unremarkable, neuro exam wnl including intact cranial nerves 2-12. Suspect drowsiness multifactorial given pt was up in chair today, has been working with PT/OT, receiving HD, and home gabapentin initiated today as well. Will continue to monitor for acute changes in mental status, overall pt stable at this time. * Shanti Bianchi MULTIFOCAL LENS ASSEMBLER - 08/04/2024 2:59 PM EDT Images from the original note were not included. Speech-Language Pathology SPEECH LANGUAGE PATHOLOGY [facility] Modified Barium Swallow Study Patient Name: Sandy Deng Evaluation Date: 08/04/2024 Date of : 1960 Admission Date: 07/26/2024 4:17 PM Age: 63 y.o. Room/Bed: Rust213/Rust213 A IMPRESSION: The patient presents with moderate - marked oral phase dysphagia associated with oral motor weakness, reduced oral bolus control, reduced/disorganized bolus formation and AP transit, and oral residue. There is moderate pharyngeal phase dysphagia associated with delayed swallow, base of t ongue weakness, pharyngeal wall weakness, incomplete epiglottic deflection, and cervical osteophytes. There was observed laryngeal penetration and aspiration with thin liquid (cup edge, straw). Mildly thick liquid penetrated the upper laryngeal vestibule. RECOMMENDATION: Recommend Pureed solids and Mildly thick liquids and meds crushed in puree and the following precautions: - Upright positioning for all PO intake - Slow rate of intake - Small bites + single sips - 1:1 Assistance - Swallow x 2 per bolus Penetration-Aspiration Scale: 8. Contrast enters the airway, crosses the plane of the vocal folds, is not ejected from the airway and there is no response to aspiration. Pt would benefit from skilled acute MULTIFOCAL LENS ASSEMBLER services to initiate oropharyngeal exercises, ensure diet tolerance, and train swallow strategies. Frequency: 3 days/wk for 2 weeks Barriers: Cognitive deficit, Limited safety awareness, Limited insight into deficits, and Communication deficit Prognosis: fair D/C Recommendations: to be determined General Initial MBS completed to assess the efficiency of her swallow function, rule out aspiration, and make recommendations regarding safe dietary consistencies, effective compensatory strategies, and safeeating environment. Subjective: Patient was awake and cooperative. She had difficulty following directions. Radiologist: Jennifer Prior MBSS?: No Baseline Diet: unable to verify Current diet: Dietary Orders (From admission, onward) Start Ordered 08/03/24 1639 Supplement:PM Snack, HS Snack; Vanilla Ensure High Protein Until discontinued Question Answer Comment Frequency PM Snack Frequency HS Snack Select supplement: Vanilla Ensure High Protein 08/03/24 1638 08/02/24 1124 Adult diet Dysphagia - Soft and Bite Sized Diet effective now Question: Diet type Answer: Dysphagia - Soft and Bite Sized 08/02/24 1124 Textures tested: - thin liquid, (teaspoon, cup edge, straw, fed by clinician) - mildly thick liquid, (cup edge, fed by clinician) - puree, (teaspoon, fed by clinician) - regular solids Patient position: lateral Past Medical History: Past Medical History: Diagnosis Date COPD (chronic obstructive pulmonary disease) ([facility]) Diabetic neuropathy ([facility]) Hyperlipidemia Myocardial infarct ([facility]) Stage 4 chronic kidney disease ([facility]) Type 1 diabetes ([facility]) Past Surgical History: Past Surgical History: Procedure Laterality Date CORONARY ANGIOPLASTY WITH STENT PLACEMENT CORONARY ANGIOPLASTY WITH STENT PLACEMENT Admission Diagnosis: Patient Active Problem List Diagnosis Date Noted SDH (subdural hematoma) ([facility]) 07/26/2024 COPD (chronic obstructive pulmonary disease) ([facility]) 07/26/2024 Type 1 diabetes mellitus with kidney complication ([facility]) 07/26/2024 Myocardial infarction ([facility]) 07/26/2024 Hyperlipidemia 07/26/2024 Diabetic neuropathy associated with type 1 diabetes mellitus ([facility]) 07/26/2024 Stage 4 chronic kidney disease ([facility]) 07/26/2024 Pain: unable to answer but no evidence of same Reason for current admission: Found to have a subdural hematoma. She reportedly had a fall 1 month ago from bed. states she hit her head on the nightstand. She is on Plavix and ASA for a stent placed 7 years ago. Pt tested positive for COVID on 07/24. At [facility] ICU she had worsening hypoxiaand was placed on NIV but failed. Was ultimately intubated. Noted to be hypotensive and started on levophed. Pt was transferred to [facility] for higher level of care. On arrival she was noted to have reduced urine output. Pt reportedly with CKD 4 and family states has been told in the past she may need HD in the future 07/27: Overnight, patient had dialysis catheter placed and was started on CRRT. Initial infectious workup returned with CTX-M Pseudomonas and S aureus identified on pneumonia PCR. 07/29: Notably arrhythmic on tele (trigeminy/bigeminy), CMP ordered - Ca low. Discussed with nephro - increased lab frequency: BMP, Mg, Phos, and iCal Q6H to allow for aggressive repletion of electrolyte derangements. 07/30: S/P Tunneled HD catheter by IR 07/29. Tolerated procedure well. Was hypoglycemic overnight at <50. Received dextrose. Pt attempted to rip out ET tube and pulled it out by 3cm. Completed pulled out OG. S/P extubation at 4:20pm. 07/31: Pt removed johnson. 08/01: Planning to transition from CRRT to iHD per nephro. Johnson replaced and pt had around 150mL out. Oral Phase Anterior loss of bolus occurred with thin liquid via teaspoon and cup. Mastication of solids and APtransit was prolonged. Decreased bolus control and formation led to thin liquid spilling to the laryngeal vestibule at times. Mildly thick liquids and regular solids spilled to the pyriforms prior tothe swallow, while puree spilled to the valleculae. Oral residue present which improved with cued re-swallows. Pharyngeal Phase The onset of the swallow is delayed. Hyolaryngeal excursion is adequate. Epiglottic deflection is incomplete. There is moderate residue in the valleculae associated with tongue base and pharyngeal wall weakness. There is mild-moderate piriform sinus residue. There is aspiration with thin liquid presented via straw and cup. Patient response to aspiration was Silent. Mildly thick liquid penetrated the upper laryngeal vestibule. Strategies attempted: re-swallow reduced the residue but patient was never able to achieve completepharyngeal clearance Comment: Cervical osteophytes noted at C 5-7 Esophageal Phase The esophagus was not visualized below the level of the UES. Noted: N/A Education The preliminary results of this evaluation were briefly shared with the patient. Goals Patient Stated Goal: Patient unable to participate in goal setting at this time. Encounter Problems Encounter Problems (Active) Swallowing Patient will tolerate recommended food and liquid consistencies without clinical signs and symptomsof aspirations (Not Progressing) Start: 07/31/24 Expected End: 08/15/24 Patient will participate in repeat clinical dysphagia evaluation (Completed) Start: 07/31/24 Expected End: 08/02/24 Resolved: 08/01/24 Patient will tolerate the least restrictive diet consistency to allow for safe consumption of dailymeals (Progressing) Start: 08/01/24 Expected End: 08/15/24 Patient will participate in instrumental assessment of swallowing as appropriate (Completed) Start: 08/04/24 Expected End: 08/18/24 Resolved: 08/04/24 Patient will complete oropharyngeal strengthening exercises to improve swallow function Start: 08/04/24 Expected End: 08/18/24 Therapy Time MULTIFOCAL LENS ASSEMBLER Individual Minutes Time In: 1350 Time Out: 1410 Minutes: 20 Shanti Bianchi MA, CCC/MULTIFOCAL LENS ASSEMBLER * May aWng, DO - 08/04/2024 11:22 AM EDT ICU Progress Note Name: Sandy Deng : 1960(63 y.o.) Date: 08/04/24 Team: MICU Attending: Saroj Sadler MD Subjective: Hospital Summary: Found to have a subdural hematoma. She reportedly had a fall 1 month ago from bed. states she hit her head on the nightstand. She is on Plavix and ASA for a stent placed 7 years ago. Pt tested positive for COVID on 07/24. At [facility] ICU she had worsening hypoxia and was placed on NIV but failed. Was ultimately intubated. Noted to be hypotensive and started on levophed. Ptwas transferred to [facility] for higher level of care. On arrival she was noted to have reduced urine output. Pt reportedly with CKD 4 and family states has been told in the past she may need HD in the future 07/27: Overnight, patient had dialysis catheter placed and was started on CRRT. Initial infectious workup returned with CTX-M Pseudomonas and S aureus identified on pneumonia PCR. 07/29: Notably arrhythmic on tele (trigeminy/bigeminy), CMP ordered - Ca low. Discussed with nephro - increased lab frequency: BMP, Mg, Phos, and iCal Q6H to allow for aggressive repletion of electrolyte derangements. 07/30: S/P Tunneled HD catheter by IR 07/29. Tolerated procedure well. Was hypoglycemic overnight at <50. Received dextrose. Pt attempted to rip out ET tube and pulled it out by 3cm. Completed pulled out OG. S/P extubation at 4:20pm. 07/31: Pt removed johnson. 08/01: Planning to transition from CRRT to iHD per nephro. Johnson replaced and pt had around 150mL out. 08/03: HD session (TTS), per nephro, stable urine output. Interval Events: Overnight patient remained stable except for variations in BP with highest systolic BP being around 170 mm Hg and lowest around 100 mmHg. Pt is tolerating the soft and bite sized diet. She states that she is feeling better overall today. Denies fevers, chills, SOB, headache, or swelling. She has a chronic productive cough most likely due to extensive smoking Hx. Scheduled Meds:busPIRone, 7.5 mg, Oral, BID dexAMETHasone, 6 mg, IntraVENous, q24h gabapentin, 200 mg, Oral, BID Glycopyrrolate-Formoterol, 2 puff, Inhalation, BID heparin, 5,000 Units, SubCUTAneous, 2 times per day insulin glargine, 3 Units, SubCUTAneous, Nightly insulin lispro, 0-6 Units, SubCUTAneous, TID WC And insulin lispro, 0-6 Units, SubCUTAneous, Nightly metoprolol tartrate, 50 mg, Oral, BID mirtazapine, 15 mg, Oral, Nightly pantoprazole, 40 mg, Oral, BID AC sodium chloride 0.9%, 10 mL, IntraCATHeter, q12h Continuous Infusions: Objective: Last Vitals: BP MAP 113/68 (08/04/24 0800) 78 (08/04/24 0800) Arterial BP MAP 99/37 (07/31/24 1320) 54 mmHg (07/31/24 1320) Temp 36.1 C (97 F) (08/04/24 0800) Pulse 59 (08/04/24 1000) Resp 21 (08/04/24 1000) SpO2 100 % (08/04/24 1000) Weight 58.1 kg (128 lb 1.4 oz) (08/04/24 0600) BMI Body mass index is 20.68 kg/m . I/O: 08/03 700 - 08/04 659 In: 524.8 [I.V.:524.8] Out: 425 [Urine:425] Resp Rate (Set): 16 Vt (Set, mL): 470 mL FiO2 (%): 30 % PEEP/CPAP (cm H2O): 8 cm H20 Inspiratory Time (sec): 1 sec Oxygen Delivery: O2 Flow Rate (L/min): 2 L/min Invasive Lines / Tubes / Drains: Peripheral IV 08/01/24 Anterior;Right Forearm (Active) Number of days: 7 Peripheral IV 08/04/24 Right Antecubital (Active) Number of days: 0 Urethral Catheter Straight-tip;Temperature probe (Active) Number of days: 2 Hemodialysis Cath Double Lumen 08/02/24 Right Tunneled catheter Subclavian (Active) Number of days: 4 Central Line Indication: Hemodialysis Johnson Indications: Hourly I&Os (Critical Care ONLY) Restraints: Restraints Non-Violent Or Non-Self Destructive Jul 27, 2024 3:35 Am Edt NA - patient is not restrained. Wounds: Constitutional: General Appearance [x]WDWN []Obese []Cachectic []Thin []Ill Eyes: Inspection of Pupils/Irises Pupils round and react: [x]Yes []No Sclera: []Icteric []Non-Icteric Inspection of Conjunctiva/Lids Conjunctiva: []Injected [x]Non-Injected Lids: [x]Intact []Lesion Present ENT/Mouth: External Inspection of ears/nose [x] Normal [] Scar/Lesion/Mass Inspection of teeth/lips/gums Dentition: [][place] Teeth []Dentures Lips/Gums: []Intact []Lesion Present Mucosa: [][place] []Moist []Dry Neck: External Appearance Overall Appearance: [x]Normal []Lesion/Mass/Crepitus Present Trachea midline: []Yes []No Thyroid []Normal []Enlarged []Tender []Mass []Absent Respiratory: Respiratory effort []Labored [x]Non-Labored [] Mechanically-Ventilated Auscultation []Clear []Crackles []Wheezes [x]Rhonchi Cardiovascular: Auscultation Rate: [x]Regular []Irregular []Tachycardia []Bradycardia Rhythm: [x]Regular []Irregular Murmur: [x]Present []Absent Extremities Peripheral Edema: []Present [x]Absent Varicosities: []Present [x]Absent Gastrointestinal: Abdomen Palpation: [x]Soft []Firm []Tender [x]Non-Tender []Distended [x]Non-distended Mass: []Present [x]Absent Bowel Sounds: [x]Present []Absent Hernia: []Present []Absent Liver/Spleen: []Hepatosplenomegaly []Organomegaly Absent Musculoskeletal: Inspection of Digits and Nails Cyanosis: []Present [x]Absent Clubbing: []Present [x]Absent Ischemia: []Present [x]Absent Infection: []Present [x]Absent Extremities ROCHE Equally: Except ([]RUE []RLE []LUE []LLE) Strength/Tone: Intact and Normal ([]RUE []RLE []LUE []LLE) Skin: Inspection [x]Normal []Rash []Lesion []Ulcer Palpation []Warm []Cool []Dry []Clammy []Nodules []Induration []Skin-tightening Cap-Refill: [] <3 sec [] >3 seconds (delayed) Neurologic: GCS EYE: 4 - Opens spontaneously GCS MOTOR: 6 - Obeys commands for movement GCS VERBAL: 5 - Oriented to person, place, time Total GCS: 15 [] Sensation grossly intact Psych: Mental Status Alert: [x]Yes [] No Oriented: []x0 []X1 []X2 [x]x3 Mood/Affect [x]Normal []Flat []Agitated []Depressed []Anxious []Calm []Sedated []NAD Select Labs within last 24 hours- BMP: Recent Labs 08/02/24 0025 08/03/24 0022 08/04/24 0315 NA 134* 137 134* K 4.1 4.3 3.6 CL 107 110* 104 CO2 23 26 26 BUN 21* 28* 24* CREATININE 1.55* 2.29* 1.88* CALCIUM 7.4* 7.4* 7.0* MG 2.3 2.4* 2.0 PHOS 3.0 3.4 3.4 LFTs: Recent Labs 08/01/24 1151 ALBUMIN 2.1* Glucose: Recent Labs 08/01/24 1151 08/01/24 1733 08/02/24 0025 08/02/24 0521 08/02/24 1331 08/02/24 1719 08/03/24 0021 08/03/24 0022 08/03/24 0603 08/03/24 1140 08/03/24 1754 08/03/24 2337 08/04/24 0315 08/04/24 0515 GLUCOSE 170* -- 212* -- -- -- -- 87 -- -- -- -- 119* -- POCGLU -- < > 217* < > 202* 211* 88 -- 81 173* 93 118* -- 113* < > = values in this interval not displayed. Procal: No results for input(s): PROCAL in the last 72 hours. CBC: Recent Labs 08/02/24 0025 08/03/24 0022 08/04/24 0315 WBC 9.8 10.8* 8.5 HGB 7.8* 8.5* 8.3* HCT 24.7* 28.6* 26.5* PLT 177 210 178 MCV 89.8 92.3 91.1 RDW 17.8* 18.1* 17.4* ABGs: No results for input(s): PHART, OQK4QCY, PO2ART, ZOR7CDX, SO2ART, [id number] in thelast 72 hours. Lactic Acid: No results for input(s): LACTATE in the last 72 hours. INR: No results for input(s): INR in the last 72 hours. Cardiac Injury Profile: No results for input(s): CKTOTAL, CKMB, TROPONINI in the last 72 hours. Labs in Last 3 months: Lab Results Component Value Date TSH 3.472 07/26/2024 Microbiology- Urine Cx: No results found for: URINECX Blood Cx: No results found for: BLOODCX Sputum Cx: Lab Results Component Value Date RESPCULT Rare respiratory keven present. 07/27/2024 RESPCULT Few Staphylococcus aureus (A) 07/27/2024 Gram Stain: Lab Results Component Value Date LABGRAM (A) 07/27/2024 Many Polymorphonuclear leukocytes per low power field LABGRAM Few Epithelial cells per low power field (A) 07/27/2024 LABGRAM Moderate Gram positive cocci (A) 07/27/2024 PNA PCR: Lab Results Component Value Date HUMANMETAPNE Not Detected 07/27/2024 COVID19: No results found for: COVID19 Legionella Ag: Lab Results Component Value Date LEGIONELLAPN Not Detected 07/27/2024 Strep Ag: No results for input(s): STREPPNEUMO in the last 72 hours. 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 (HCC) Hyperlipidemia Diabetic neuropathy associated with type 1 diabetes mellitus (HCC) Assessment: Acute on Chronic Hypoxemic, Hypercapnic Resp failure - extubated 07/30 Septic shock 2/2 Polymicrobial PNA; Per ID stewardship, Tx with mary ann 07/27-08/02 Covid pos at OSH, micro testing pos for non-COVID coronavirus on admission UMA on CKD stage 4, HD TTS T1DM COPD BP variations (highest systolic pressure of around 170 mm Hg and lowest 103 mm Hg) Stable SDH (identified 07/26) Plan: Received last dose of decadron today regarding Covid status Overall improvement in renal function, HD scheduled for TTS with nephro following. Stable urine output; continue to monitor BMP. Ordered PCT glucose; Restarted Humalog injection subQ, discontinue insulin regular Continue scheduled Bevespi, discontinued Spiriva discontinue hydralazine and labetalol; consider initiation of norvasc 5 mg if pressures remain elevated On gabapentin prior to admission -> will re-start at lower renally safe dose OT and PT recommend discharge to a [facility] facility GI Prophylaxis: Pantoprazole IV DVT Prophylaxis: Heparin subcutaneous Disposition: Transfer to [facility] I performed a history and physical examination of the patient and discussed her management with themedical student. I reviewed the medical student note and agree with the documented findings and plan of care. My additional input is written in above. Associated attestation - Saroj Sadler MD - 08/04/2024 3:03 PM EDT I saw and evaluated the patient, participating in the cantrell portions of the service. I reviewed the resident s note. I agree with the resident s findings and plan. Saroj Sadler MD * Svitlana Albarran, [facility]-MULTIFOCAL LENS ASSEMBLER - 08/04/2024 9:23 AM EDT Images from the original note were not included. Speech-Language Pathology SPEECH LANGUAGE PATHOLOGY [facility] Dysphagia Treatment Note Patient Name: Sandy Deng Evaluation Date: 08/04/2024 Date of : 1960 Admission Date: 07/26/2024 4:17 PM Age: 63 y.o. Room/Bed: Rust213/213 A Subjective Patient alert and cooperative. Seen upright in bedside chair. Answers all basic questions with clear, strong vocal quality. Follows all basic commands. Visitors at bedside - significant other. Spoke with MOODY Roblero who cleared pt for treatment. Current Diet: Dietary Orders (From admission, onward) Start Ordered 08/03/24 1639 Supplement:PM Snack, HS Snack; Vanilla Ensure High Protein Until discontinued Question Answer Comment Frequency PM Snack Frequency HS Snack Select supplement: Vanilla Ensure High Protein 08/03/24 1638 08/02/24 1124 Adult diet Dysphagia - Soft and Bite Sized Diet effective now Question: Diet type Answer: Dysphagia - Soft and Bite Sized 08/02/24 1124 Aspiration Precautions: - Upright positioning for all PO intake - Slow rate of intake - Small bites/sips - Supervision with PO Oxygen: Oxygen Therapy: Supplemental oxygen O2 Delivery Method: Nasal cannula O2 Flow Rate (L/min): 2 L/min Pain: Pt denies any current pain. PPE Worn: gloves Objective & Assessment Dysphagia Treatment # of Activities: 1 Dysphagia Activity 1: Assess diet tolerance Patient finishing breakfast tray on arrival to room. Agreeable to continue trials from same. Patient met trials of minced and moist and soft solids with clinically adequate oral bolus control, timelyswallow onset per palpation, and no overt s/sx of aspiration or penetration. Patient did independently take small bites. Trials of cup sips of thin liquids met with clinically adequate oral bolus control, timely swallow onset per palpation, and immediate throat clear/cough with all trials. Do feel patient would benefit from MBSS to determine safest diet given overt s/sx of aspiration with liquids. Plan & Recommendations Plan: Continue acute MULTIFOCAL LENS ASSEMBLER therapy per initial plan of care and established goals. Recommend Soft and bite-sized solids and Thin liquids and meds whole in puree or crushed in puree and the following precautions: - Upright positioning for all PO intake - Slow rate of intake - Small bites/sips - Supervision with PO Recommend modified barium swallow study (MBSS) to further assess. D/C Recommendations: to be determined Education Education Given: safety, swallowing strategies, diet recommendations, potential for additional diagnostic testing Given To: patient, significant other, and RN Response: verbalizes understanding Goals Patient Stated Goal: None stated at this time. Encounter Problems Encounter Problems (Active) Swallowing Patient will tolerate recommended food and liquid consistencies without clinical signs and symptomsof aspirations (Not Progressing) Start: 07/31/24 Expected End: 08/15/24 Patient will participate in repeat clinical dysphagia evaluation (Completed) Start: 07/31/24 Expected End: 08/02/24 Resolved: 08/01/24 Patient will tolerate the least restrictive diet consistency to allow for safe consumption of dailymeals (Progressing) Start: 08/01/24 Expected End: 08/15/24 Patient will participate in instrumental assessment of swallowing as appropriate (Initiated) Start: 08/04/24 Expected End: 08/18/24 Therapy Time MULTIFOCAL LENS ASSEMBLER Individual Minutes Time In: 0855 Time Out: 0905 Minutes: 10 Svitlana Albarran CCC-MULTIFOCAL LENS ASSEMBLER * Shanti García RD - 08/03/2024 4:36 PM EDT Nutrition Assessment Type and Reason for Visit: Reassess Nutrition Recommendations/Plan: Continue with current diet. Ordered Ensure HP @ 1400 + 2000 via MNT protocol. Monitor nutritional status. Malnutrition Assessment: Malnutrition Status: At risk for malnutrition (Comment) Context: Acute Illness Findings of the 6 clinical characteristics of malnutrition: Energy Intake: 50% or less of estimated energy requirements for 5 or more days Weight Loss: No significant weight loss Body Fat Loss: No significant body fat loss Muscle Mass Loss: No significant muscle mass loss Fluid Accumulation: Mild Extremities, Generalized Digital Archivist Strength: Not Performed Nutrition Assessment: Pt is a 63-year-old female with multiple medical co-morbidities including Type I DM (on insulin pump), COPD on 4L home O2, CKD4, on ASA/Plavix who initially presented to [facility] on 07/23 withacute respiratory distress and acute delirium. 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 She was found to be hypoxic and hypercarbic, and COVID positive. She continued to be delirious and did not tolerate NIV, and required intubation 07/27/24. A CT head was done to evaluate her altered mental status, and she was found to have a small acute right sided SDH vs. epidural hematoma. For this reason, [facility] wa consulted for further neurologic management and she was transf erred to SICU on 07/26. She started on CRRT last night 07/26/24. Levophed at 30, vasopressin added. Initial infectious workup returned with CTX-M Pseudomonas and S aureus identified on pneumonia PCR. Insulin drip started - hx T1DM on insulin pump; insulin drip is now off. Pt was extubated on 07/30/24. RD visited pt today 08/03/24; HD being administered. RD attempted to interview pt; she made eye cont act but not able to answer questinos. MULTIFOCAL LENS ASSEMBLER evaluated pt today 08/03/24 and recommends a soft and bitesized diet; pt is on same. Estimated Daily Nutrient Needs: Energy Requirements Based On: Kcal/kg Weight Used for Energy Requirements: [place] Weight for Energy Calculation (kg): 59 kg Total Energy Requirements (kcals/day): 25-30 kcals/kg = 0770-2801 kcals/day Weight Used for Protein Requirements: [place] Weight in Kg Used for Protein Requirements: 59 kg Estimated Total Protein (g/day): 1.2-1.4g protein/kg IBW = 71-83g protein/day Estimated Daily Total Fluid (ml/day): 1475 mls Nutrition Related Findings: +BS abd soft, NT, Hipolito 15, loose brown diarrhea 08/03/24. Edema: Generalized +1 edema, BUE mild edema. Wound Type: None (generalized bruising) Net IO Since Admission: 3,823.5 mL [08/03/24 1636] Current Nutrition Therapies: Adult diet Dysphagia - Soft and Bite Sized Current Oral Intake Average Meal Intake: 1-25%, 0% Average Supplements Intake: None Ordered Anthropometric Measures: Height: 167.6 cm (5' 5.98) Current Body Weight: 62 kg (136 lb 11 oz) (07/29/24.) Weight Source: Bed Scale Admission Body Weight: 48 kg (105 lb 13.1 oz) [place] Body Weight (lbs) (Calculated): 130 lbs [place] Body Weight (Kg) (Calculated): 59 kg % [place] Body Weight (Calculated): 105.1 % BMI (kg/m2) (Calculated): 22.1 BMI Categories: Normal Weight (BMI 18.5-24.9) Wt Readings from Last 10 Encounters: 07/29/24 62 kg (136 lb 11 oz) LABS: Recent Labs 08/01/24 1151 08/02/24 0025 08/03/24 0022 NA 132* 134* 137 K 4.1 4.1 4.3 CL 106 107 110* CO2 23 23 26 BUN 13 21* 28* CREATININE 0.87 1.55* 2.29* GLUCOSE 170* 212* 87 CALCIUM 7.2* 7.4* 7.4* CAION 4.10* 4.30 4.20* MG -- 2.3 2.4* PHOS 2.3* 3.0 3.4 BUN - low for pt on HD, Cr - elevated - on HD. Nutrition Diagnosis: Inadequate oral intake related to cognitive or neurological impairment as evidenced by intake 0-25% Nutrition Interventions: Nutrition Education/Counseling: Education not indicated Coordination of Nutrition Care: Continue to monitor while inpatient Goals: Previous Goal Met: Progress towards Goal(s) Declining Goals: PO intake 50% or greater Nutrition Monitoring and Evaluation: Food/Nutrient Intake Outcomes: Diet Advancement/Tolerance, Food and Nutrient Intake, Supplement Intake Physical Signs/Symptoms Outcomes: Biochemical Data, GI Status, Fluid Status or Edema, Hemodynamic Status, Nutrition Focused Physical Findings, Skin, Weight Discharge Planning: Too soon to determine Shanti García RD,LD,[facility] Contact: *[phone] or [employer] Online Chat * Jose Carlos Medrano MD - 08/03/2024 1:32 PM EDT Images from the original note were not included. NEPHROLOGY SOAP NOTE Visit date: 08/03/24, 1:32 PM Patient: Sandy Deng Room number: T2-213/T2-213 A Date of Admit: 07/26/2024 LOS: 8 days Referring physician: Fly De La Garza DO Outpatient X Ray Inspector: Christy Huerta DO ASSESSMENT/PLAN: Non oliguric UMA on CKD 4 - Cr has been 2.4-2.8, last (04/26) Cr 2.4 eGFR 20, 24 hr epcqfvy=3251 mg. - On admit, (07/26) Cr 4.56, CRRT initiation for severe acidosis in setting of hemodynamic instability 07/26-08/01. - now non-oliguric, transitioned to intermittent HD today - urine output stable around 500 mL daily - pt has TDC - plan TTS dialysis schedule for now, will continue to monitor for renal recovery 2. Electrolytes - last Na was 137, improved - K 4.3 3. Acid-base - bicarb stable at 26 - managed with dialysis 4. BP/volume status: - last BP 119/61 (on HD), average 135/62 last 24 hours - she has prn hydralazine ordered - hold off on starting ACEi/ARB due to UMA - targeting 1 liter UF with dialysis - consider addition of diuretic therapy (if BP tolerates) 5. Anemia - Hgb 7.8 - pRBC needs per primary team 6. ID - on meropenem - remdesivir completed, on decadron 7. Other: -seen by S&S, cleared for diet. Adjust medications based on: Estimated Creatinine Clearance: 23.2 mL/min (A) (by C-G formula based on SCr of 2.29 mg/dL (H)). SUBJECTIVE: Patient with chronic, stable medical conditions as documented in the initial consultation. Interval history reviewed: no acute events Patient offers no complaints. Denies SOB. Unsure about swelling. OBJECTIVE: CURRENT MEDICATIONS: busPIRone, 7.5 mg, Oral, BID dexAMETHasone, 6 mg, IntraVENous, q24h Glycopyrrolate-Formoterol, 2 puff, Inhalation, BID heparin, 5,000 Units, SubCUTAneous, 2 times per day insulin glargine, 3 Units, SubCUTAneous, Nightly insulin regular, 0-12 Units, SubCUTAneous, q6h metoprolol tartrate, 50 mg, Oral, BID mirtazapine, 15 mg, Oral, Nightly pantoprazole, 40 mg, Oral, BID AC sodium chloride 0.9%, 10 mL, IntraCATHeter, q12h tiotropium, 2 puff, Inhalation, Daily PHYSICAL EXAMINATION: Visit Vitals BP 119/61 Pulse 59 Temp 36.6 C (97.8 F) (Temporal) Resp 21 Ht 1.676 m (5' 6) Comment: per RD Epic review Wt 62 kg (136 lb 11 oz) SpO2 100% BMI 22.06 kg/m BSA 1.7 m Admit Wt: Weight: 48 kg (105 lb 13.1 oz) Todays Wt: Weight: 62 kg (136 lb 11 oz) Average, Min, and Max for last 24 hours Vitals: TEMPERATURE: Temp Av.3 C (97.4 F) Min: 36.1 C (97 F) Max: 36.6 C (97.8 F) RESPIRATIONS RANGE: Resp Av.4 Min: 21 Max: 29 PULSE RANGE: Pulse Av Min: 57 Max: 97 BLOOD PRESSURE RANGE: Systolic (24hrs), Av , Min:106 , Max:170 Diastolic (24hrs), Av, Min:49, Max:78 PULSE OXIMETRY RANGE: SpO2 Av.5 % Min: 93 % Max: 100 % Estimated body mass index is 22.06 kg/m as calculated from the following: Height as of this encounter: 1.676 m (5' 6). Weight as of this encounter: 62 kg (136 lb 11 oz). Intake/Output Summary (Last 24 hours) at 08/03/2024 1332 Last data filed at 08/03/2024 0600 Gross per 24 hour Intake 667 ml Output 395 ml Net 272 ml General Appearance no acute distress, awake and alert but appears anxious HEENT Neck anicteric sclera, moist mucus membranes, normal external ears/nares, no facial edema Supple neck, midline trachea without tracheal deviation Chest symmetric, normal shape/expansion, no chest wall/sternal tenderness; R TDC Heart RRR, no audible pericardial rubs, no audible murmurs Lungs Coarse breath sounds Abdomen Skin soft without distension, normal bowel sounds, no grimacing on palpation no rash or subcutaneous nodules, warm and dry skin with good turgor Musculoskeletal 1+ dependent U/LE edema + johnson catheter present Neurologic no resting tremor or myoclonus DATA: LABS: Recent Labs 08/01/24 0608 08/02/24 0025 08/03/24 0022 WBC 10.4 9.8 10.8* HGB 8.3* 7.8* 8.5* HCT 25.9* 24.7* 28.6* MCV 88.1 89.8 92.3 PLT 156 177 210 Recent Labs 08/01/24 0002 08/01/24 0608 08/01/24 1151 08/02/24 0025 08/03/24 0022 NA 133* 133* 132* 134* 137 K 4.2 4.0 4.1 4.1 4.3 CL 105 106 106 107 110* CO2 25 24 23 23 26 BUN 15 14 13 21* 28* CREATININE 0.85 0.90 0.87 1.55* 2.29* GLUCOSE 161* 119* 170* 212* 87 CALCIUM 7.8* 7.4* 7.2* 7.4* 7.4* MG -- -- -- 2.3 2.4* PHOS 3.0 2.6 2.3* 3.0 3.4 ANIONGAP 3 2* 3 3 1* ALBUMIN 2.1* 2.0* 2.1* -- -- Lab Results Component Value Date CALCIUM 7.4 (L) 08/03/2024 CAION 4.20 (L) 08/03/2024 PHOS 3.4 08/03/2024 No results for input(s): INR, PROTIME, PTT in the last 72 hours. No results found for: IRON, TIBC, FERRITIN No results found for: [id number], FOLATE No results found for: COLORU, CLARITYU, PH, PHUR, LABSPEC, GLUCOSEU, BLOODU, LEUKOCYTESUR, NITRITE, BILIRUBINUR, UROBILINOGEN, BACTERIA, AMORPHOUS, CASTS No results found for: HAV, HEPAIGM, HEPBIGM, HEPBCAB, HBEAG, HEPCAB No lab exists for component: POCGMD No results for input(s): ALT, AST, GGT, ALKPHOS, BILITOT, LIPASE in the last 72 hours. No results for input(s): CKTOTAL, CKMB, CKMBINDEX, TROPONINI, BNP in the last 72 hours. No lab exists for component: NTPROBNP No results for input(s): CHOLTOT, TRIG, HDL, CHOLHDL, LDL in the last 72 hours. No lab exists for component: VLDCHOL No components found for: LABA1C No results for input(s): LACTATE in the last 72 hours. No results found for: FIBRINOGEN No results for input(s): CRP in the last 72 hours. No lab exists for component: ESR No results found for: CRP Lab Results Component Value Date LABGRAM (A) 07/27/2024 Many Polymorphonuclear leukocytes per low power field LABGRAM Few Epithelial cells per low power field (A) 07/27/2024 LABGRAM Moderate Gram positive cocci (A) 07/27/2024 No components found for: LABFUNG IMAGING: POCT glucose meter Performed by: [facility], [address] [place] [id number] CLIA ID: [id number] POCT glucose meter Performed by: [facility], [address] [place] [id number] CLIA ID: [id number] POCT glucose meter Performed by: [facility], [address] [place] [id number] CLIA ID: [id number] Signed: Jose Carlos Medrano MD Nephrology [facility] ([facility]) Pager: [phone] Office Office * RENATO Kern - 08/03/2024 9:46 AM EDT Images from the original note were not included. Speech-Language Pathology SPEECH LANGUAGE PATHOLOGY [facility] Dysphagia Treatment Note Patient Name: Sandy Deng Evaluation Date: 08/03/2024 Date of : 1960 Admission Date: 07/26/2024 4:17 PM Age: 63 y.o. Room/Bed: T2-213/T2213 A Subjective Patient lethargic and cooperative. Seen upright in bedside chair. Answers some basic questions withweak vocal quality. Follows all basic commands. Visitors at bedside - spouse. Spoke with RN Padmini who cleared pt for treatment. Current Diet: Dietary Orders (From admission, onward) Start Ordered 08/02/24 1124 Adult diet Dysphagia - Soft and Bite Sized Diet effective now Question: Diet type Answer: Dysphagia - Soft and Bite Sized 08/02/24 1124 Aspiration Precautions: - Upright positioning for all PO intake - Slow rate of intake - Small bites/SINGLE sips - Supervision with PO Oxygen: Oxygen Therapy: Supplemental oxygen O2 Delivery Method: Nasal cannula O2 Flow Rate (L/min): 2 L/min Pain: RN managing pain. PPE Worn: gloves Objective & Assessment Dysphagia Treatment # of Activities: 1 Dysphagia Activity 1: Assess diet tolerance Patient's dry swallow is palpated to be clinically reduced. Patient trials soft and bite sized items with extended, but functional mastication, good bolus management, and trace scattered oral residuepost swallow. Patient's previous day's RN states that patient has been coughing with food - to the point that it was removed. Patient's spouse states that patient has been coughing, prior to any food. Patient's does present with baseline congestion and a very weak, unproductive cough. With liquid trials and small, single sips, patient's swallow is audible, but there is no cough. With larger sips of thin liquids, patient intermittently has a delayed, unproductive cough. Patient and spouse educated on need to consume only small, single sips. If patient continues with weak occasional cough with intake, may benefit from MBSS. Plan & Recommendations Plan: ST to follow per dysphagia plan of care. Continue acute MULTIFOCAL LENS ASSEMBLER therapy per initial plan of care and established goals. Recommend Soft and bite-sized solids and Thin liquids and meds whole in puree or crushed in puree and the following precautions: - Upright positioning for all PO intake - Slow rate of intake - Small bites/sips - Supervision with PO D/C Recommendations: to be determined Education Education Given: swallowing strategies, diet recommendations, potential for additional diagnostic testing Given To: patient, spouse, and RN Response: needs reinforcement Goals Patient Stated Goal: None stated. Encounter Problems Encounter Problems (Active) Swallowing Patient will tolerate recommended food and liquid consistencies without clinical signs and symptomsof aspirations (Not Progressing) Start: 07/31/24 Expected End: 08/15/24 Patient will participate in repeat clinical dysphagia evaluation (Completed) Start: 07/31/24 Expected End: 08/02/24 Resolved: 08/01/24 Patient will tolerate the least restrictive diet consistency to allow for safe consumption of dailymeals (Progressing) Start: 08/01/24 Expected End: 08/15/24 Therapy Time MULTIFOCAL LENS ASSEMBLER Individual Minutes Time In: 922 Time Out: 934 Minutes: 12 RENATO Kern * Jennifer Saldaña - 08/03/2024 9:36 AM EDT Images from the original note were not included. PHYSICAL THERAPY [facility] Initial Evaluation Name/MRN: Sandy Deng ([id number]) Evaluation Date: 08/03/2024 Date of : 1960 Admission Date: 07/26/2024 4:17 PM Age: 63 y.o. Room/Bed: T2-213/T2-213 A Discharge Recommendation: Continue to assess pending progress, IP Rehab Equipment Needed: No Other: tbd Assessment IMPRESSION: pt presents with impaired functional mobility s/p fall (a month ago) and SDH. Pt requires oxygen use at home 3L NC. She presents with general weakness, fatigue, decreased balance, endurance, and participation in ADLs. Pt requires max assist fro bed mobility, transfers, and gait. She requires verbal cueing for breathing techniques to recover from SOB following activity. Pt will benefitfrom continued therapies to address functional mobility impairments. Recommend IPR on discharge with continued assessment of progress. Admitting Diagnosis: SDH, brain bleed Prognosis: fair Performance Deficits /Impairments: Decreased Functional Mobility, Decreased ADL status, Decreased Strength, Decreased Endurance, Decreased Balance, and Decreased Posture Decision Making: Medium Complexity Subjective Pt in bed on arrival and agreeable to physical therapy. Pt nods head to understanding of getting upin chair. Pt has no c/o pain. Pt at bedside on arrival and able to provide subjective history. Pt lethargic and has difficulty speaking above a whisper. Pain: Pt denies any current pain. Past Medical History: Past Medical History: Diagnosis Date COPD (chronic obstructive pulmonary disease) (HCC) Diabetic neuropathy (HCC) Hyperlipidemia Myocardial infarct (HCC) Stage 4 chronic kidney disease (HCC) Type 1 diabetes (HCC) Past Surgical History: Past Surgical History: Procedure Laterality Date CORONARY ANGIOPLASTY WITH STENT PLACEMENT CORONARY ANGIOPLASTY WITH STENT PLACEMENT Admission Diagnosis: Patient Active Problem List Diagnosis Date Noted SDH (subdural hematoma) ([facility]) 07/26/2024 COPD (chronic obstructive pulmonary disease) ([facility]) 07/26/2024 Type 1 diabetes mellitus with kidney complication ([facility]) 07/26/2024 Myocardial infarction ([facility]) 07/26/2024 Hyperlipidemia 07/26/2024 Diabetic neuropathy associated with type 1 diabetes mellitus ([facility]) 07/26/2024 Stage 4 chronic kidney disease ([facility]) 07/26/2024 Medical Precautions: No active isolations Proper PPE donned/doffed in accordance with facility standards. Fall Risk: Bunn Fall Risk Score: 35 (Medium Risk) Precautions/Restrictions: Lines/Drains/Airways: PIV, johnson, NC 2L (pt on 3L at home per ) Fall Precautions Family/Caregiver Present: spouse Overall Cognitive Status: WFL Overall Orientation Status: Vision: no visual deficits Hearing: pt hard of hearing at times, therapist spoke directly to pt and with increased tone. Social/Functional History Patient admitted from home. Lives With: Spouse Type of Home: single family home Home Layout: Single Level Home Home Access: Stairs to Enter without Rails (# of stairs: 3) Bathroom Shower/Tub: Walk in Shower Toilet: Standard Home Equipment: front wheeled walker Homemaking Responsibilities: Independent Receives Help From: Spouse Active Aadc Plans Staff Officer: N/A Prior Level of Function ADL Assistance: Independent Ambulation Assistance: Independent Device(s) used: Straight Cane Transfer Assistance: Independent Objective Lower Extremity Assessment AROM: WFL PROM: WFL Strength: pt LE strength grossly 3-/5. Pt requires additional time for completion of tasks due to noted fatigue. Pt able to maintain upright posture sitting EOB for 1 minute independently. Fatigue noted and requires mod assist for correction. Sensation: WFL Balance: Balance During Session: Posture: fair Sitting - Static: Min Assist Sitting - Dynamic: Min Assist Standing - Static: Max Assist Standing - Dynamic: Max Assist Bed Mobility: Supine to sit: Mod Assist Scooting: Min Assist, cueing and setup required Transfers Sit to stand: Max Assist Stand to sit: Max Assist Stand step: Max Assist Bed to chair: Max Assist Ambulation Ambulation 1 Assistive device(s) used: None Assist level: Max Assist Distance (ft): 2 steps Quality of gait: antalgic, shuffling, slow amanda, postural sway, instability through all phases Pt sat EOB for 5 minutes with varying assist from mod-SBA. Pt able to hold static sitting balance for 1 minute at a time. Pt requires mod assist and verbal cues for positioning of UE and postural correction. Pt completes sit to stand with max assist and hip flexion posture. Pt has noted SOB sittingEOB and following bed to chair transfer. Pt educated on and completed deep breathing exercises. Pt transferred to chair with max assist for stand step and pivot and completed stand to sit with max assist. Pt scooted back in chair with min assist and cueing for UE positioning. Outcome Measures AM-PAC How much HELP from another person do you currently need Turning from your back to your side while in a flat bed without using bedrails?: A Lot Moving from lying on your back to sitting on the side of a flat bed without using bedrails?: A Lot Moving to and from a bed to a chair (including a wheelchair)?: A Lot Standing up from a chair using your arms (wheelchair or bedside chair)?: A Lot Walking in a hospital room?: A Lot Stair climbing assessed?: No AM-PAC Inpatient Mobility Raw Score (No Stairs) : 10 [facility] Score: Transferred to chair/commode Plan Pt would benefit from skilled acute PT services to address Strengthening, Gait Training, Balance Training, Self-Care/ADL Training, Functional Mobility Training, and Endurance Training. Frequency: 3x/week for 4 weeks Barriers: Impaired balance, Lower extremity weakness, Upper extremity weakness, and Decreased endurance Safety/Education Safety Safety Devices in place: All fall risk precautions in place, call light within reach, left in chair, chair alarm in place, gait belt, patient at risk for falls, nurse notified, and no alarms engaged upon entry Restraints: No Education Education Given To: patient and spouse Education Provided: PT Role, PT Goals, Plan of Care, Energy Conservation, Fall Prevention Education, Discharge Recommendations, Benefits of Increasing Activity, and Breathing Techniques Education Method: Verbal Barriers to Learning: None Education Outcome: Verbalized Understanding Goals Patient Stated Goal: pt and spouse would like her to go home Encounter Problems Encounter Problems (Active) Balance Patient will maintain static standing balance for 3 minutes with min assist in order to demonstratedecreased risk of falling. Start: 08/03/24 Expected End: 08/31/24 Patient will maintain static sitting balance for 3 minutes with supervision in order to demonstrateimproved postural control and prepare for out of bed mobility. Start: 08/03/24 Expected End: 08/31/24 Mobility Patient will ambulate 50 feet with min assist and rolling walker in order to improve safety and independence with mobility. Start: 08/03/24 Expected End: 08/31/24 Transfers Patient will perform bed mobility with supervision in order to improve independence and prepare forout of bed mobility. Start: 08/03/24 Expected End: 08/31/24 Patient will complete functional transfer with rolling walker with min assist in order to prepare for ambulation. Start: 08/03/24 Expected End: 08/31/24 Therapy Time Individual Co-treatment Time In 0813 Time Out 0846 Minutes 33 Timed Code Treatment Minutes: 12 Minutes (1 FA) JEY Caldwell Patient's Physical Therapy Plan of Care supervision is transferred to a [facility] Physical Therapist. Goals and/or treatment plan was established in collaboration with patient/family/other representatives. * May Wang, DO - 08/03/2024 7:05 AM EDT ICU Progress Note Name: Sandy Deng : 1960(63 y.o.) Date: 08/03/24 Team: MICU Attending: Dr. Sadler Subjective: Hospital Summary: Found to have a subdural hematoma. She reportedly had a fall 1 month ago from bed. states she hit her head on the nightstand. She is on Plavix and ASA for a stent placed 7 years ago. Pt tested positive for COVID on 07/24. At [facility] ICU she had worsening hypoxia and was placed on NIV but failed. Was ultimately intubated. Noted to be hypotensive and started on levophed. Pt was transferred to [facility] for higher level of care. On arrival she was noted to have reduced urine output. Pt reportedlywith CKD 4 and family states has been told in the past she may need HD in the future 07/27: Overnight, patient had dialysis catheter placed and was started on CRRT. Initial infectious workup returned with CTX-M Pseudomonas and S aureus identified on pneumonia PCR. 07/29: Notably arrhythmic on tele (trigeminy/bigeminy), CMP ordered - Ca low. Discussed with nephro - increased lab frequency: BMP, Mg, Phos, and iCal Q6H to allow for aggressive repletion of electrolyte derangements. 07/30: S/P Tunneled HD catheter by IR 07/29. Tolerated procedure well. Was hypoglycemic overnight at <50. Received dextrose. Pt attempted to rip out ET tube and pulled it out by 3cm. Completed pulled out OG. S/P extubation at 4:20pm. 07/31: Pt removed johnson. 08/01: Planning to transition from CRRT to iHD per nephro. Johnson replaced and pt had around 150mL out. Interval Events: Pt resting comfortably. at bedside. Plan to initiate HD today. Patient denies shortness of breath, chest pain, abdominal pain, and constipation. voices concerns over waxing and waningmental status. Offered re-assurance. Scheduled Meds:busPIRone, 7.5 mg, Oral, BID dexAMETHasone, 6 mg, IntraVENous, q24h Glycopyrrolate-Formoterol, 2 puff, Inhalation, BID heparin, 5,000 Units, SubCUTAneous, 2 times per day insulin glargine, 5 Units, SubCUTAneous, Nightly insulin regular, 0-12 Units, SubCUTAneous, q6h metoprolol tartrate, 50 mg, Oral, BID mirtazapine, 15 mg, Oral, Nightly pantoprazole (ProtoNix) 40 mg in sodium chloride (PF) 0.9 % 10 mL injection, 40 mg, IntraVENous, BID sodium chloride 0.9%, 10 mL, IntraCATHeter, q12h tiotropium, 2 puff, Inhalation, Daily Continuous Infusions: Objective: Last Vitals: BP MAP 160/64 (08/03/24 0600) 92 (08/03/24 0600) Arterial BP MAP 99/37 (07/31/24 1320) 54 mmHg (07/31/24 1320) Temp 36.4 C (97.6 F) (08/03/24 0000) Pulse 65 (08/03/24 0600) Resp 25 (08/03/24 06) SpO2 100 % (08/03/24599) Weight 62 kg (136 lb 11 oz) (07/29/24 0500) BMI Body mass index is 22.06 kg/m . I/O: 08/02 0700 - 08/03 659 In: 787 [P.O.:120; I.V.:567] Out: 445 [Urine:445] Ventilator: Resp Rate (Set): 16 Vt (Set, mL): 470 mL FiO2 (%): 30 % PEEP/CPAP (cm H2O): 8 cm H20 Inspiratory Time (sec): 1 sec Oxygen Delivery: O2 Flow Rate (L/min): 2 L/min Invasive Lines / Tubes / Drains: CVC Triple Lumen 07/26/24 Right Internal jugular (Active) Number of days: 6 Peripheral IV 08/01/24 Anterior;Right Forearm (Active) Number of days: 0 Urethral Catheter Straight-tip;Temperature probe (Active) Number of days: 1 Hemodialysis Cath Double Lumen 07/29/24 Right Tunneled catheter Subclavian (Active) Number of days: 3 Central Line Indication: Hemodialysis Johnson Indications: Hourly I&Os (Critical Care ONLY) Restraints: Restraints Non-Violent Or Non-Self Destructive Jul 27, 2024 3:35 Am Edt NA - patient is not restrained. Wounds: Constitutional: General Appearance [x]WDWN []Obese []Cachectic []Thin []Ill Eyes: Inspection of Pupils/Irises Pupils round and react: [x]Yes []No Sclera: []Icteric [x]Non-Icteric Inspection of Conjunctiva/Lids Conjunctiva: []Injected [x]Non-Injected Lids: [x]Intact []Lesion Present ENT/Mouth: External Inspection of ears/nose [] Normal [] Scar/Lesion/Mass Inspection of teeth/lips/gums Dentition: [x][place] Teeth []Dentures Lips/Gums: [x]Intact []Lesion Present Mucosa: [x][place] [x]Moist []Dry Neck: External Appearance Overall Appearance: []Normal []Lesion/Mass/Crepitus Present Trachea midline: []Yes []No Thyroid []Normal []Enlarged []Tender []Mass []Absent Respiratory: Respiratory effort []Labored [x]Non-Labored [] Mechanically-Ventilated Auscultation [x]Clear []Crackles []Wheezes [][place]honchi Cardiovascular: Auscultation Rate: [x]Regular []Irregular []Tachycardia []Bradycardia Rhythm: [x]Regular []Irregular Murmur: []Present []Absent Extremities Peripheral Edema: []Present []Absent Varicosities: []Present []Absent Gastrointestinal: Abdomen Palpation: [x]Soft []Firm []Tender []Non-Tender []Distended [x]Non-distended Mass: []Present []Absent Bowel Sounds: []Present []Absent Hernia: []Present []Absent Liver/Spleen: []Hepatosplenomegaly []Organomegaly Absent Musculoskeletal: Inspection of Digits and Nails Cyanosis: []Present [x]Absent Clubbing: []Present [x]Absent Ischemia: []Present [x]Absent Infection: []Present [x]Absent Extremities ROCHE Equally: Except ([]RUE []RLE []LUE []LLE) Strength/Tone: Intact and Normal ([]RUE []RLE []LUE []LLE) Skin: Inspection [x]Normal []Rash []Lesion []Ulcer Palpation [x]Warm []Cool [x]Dry []Clammy []Nodules []Induration []Skin-tightening Cap-Refill: [] <3 sec [] >3 seconds (delayed) Neurologic: GCS EYE: 4 - Opens spontaneously GCS MOTOR: 6 - Obeys commands for movement GCS VERBAL: 5 - Oriented to person, place, time Total GCS: 15 [] Sensation grossly intact Psych: Mental Status Alert: [x]Yes [] No Oriented: []x0 []X1 []X2 [x]x3 Mood/Affect []Normal [x]Flat []Agitated []Depressed []Anxious []Calm []Sedated []NAD [facility] within last 24 hours- BMP: Recent Labs 08/01/24 1151 08/02/24 0025 08/03/24 0022 NA 132* 134* 137 K 4.1 4.1 4.3 CL 106 107 110* CO2 23 23 26 BUN 13 21* 28* CREATININE 0.87 1.55* 2.29* CALCIUM 7.2* 7.4* 7.4* MG -- 2.3 2.4* PHOS 2.3* 3.0 3.4 LFTs: Recent Labs 08/01/24 0002 08/01/24 0608 08/01/24 1151 ALBUMIN 2.1* 2.0* 2.1* Glucose: Recent Labs 07/31/24 1216 07/31/24 1220 07/31/24 1801 07/31/24 1810 08/01/24 0002 08/01/24 0003 08/01/24 0608 08/01/24 1148 08/01/24 1151 08/01/24 1733 08/01/24 2035 08/02/24 0025 08/02/24 0521 08/02/24 1331 08/02/24 1719 08/03/24 0021 08/03/24 0022 08/03/24 0603 GLUCOSE 104* -- 173* -- 161* -- 119* -- 170* -- -- 212* -- -- -- -- 87 -- POCGLU -- < > -- < > -- < > 120* < > -- 170* 192* 217* 180* 202* 211* 88 --81 < > = values in this interval not displayed. CBC: Recent Labs 08/01/24 0608 08/02/24 0025 08/03/24 0022 WBC 10.4 9.8 10.8* HGB 8.3* 7.8* 8.5* HCT 25.9* 24.7* 28.6* PLT 156 177 210 MCV 88.1 89.8 92.3 RDW 17.1* 17.8* 18.1* ABGs: No results for input(s): PHART, JDM5QTW, PO2ART, ASE0UGY, SO2ART, R9OEJEJF in the last 72 hours. Labs in Last 3 months: Lab Results Component Value Date TSH 3.472 07/26/2024 Microbiology- Sputum Cx: Lab Results Component Value Date RESPCULT Rare respiratory keven present. 07/27/2024 RESPCULT Few Staphylococcus aureus (A) 07/27/2024 Gram Stain: Lab Results Component Value Date LABGRAM (A) 07/27/2024 Many Polymorphonuclear leukocytes per low power field LABGRAM Few Epithelial cells per low power field (A) 07/27/2024 LABGRAM Moderate Gram positive cocci (A) 07/27/2024 PNA PCR: Lab Results Component Value Date HUMANMETAPNE Not Detected 07/27/2024 Legionella Ag: Lab Results Component Value Date LEGIONELLAPN Not Detected 07/27/2024 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 End-date: 08/04 UMA on CKD Stage 4, now requiring CRRT New Onset Arrhythmia likely 2/2 electrolyte derangements - resolved - Nephro following, appreciate recs - Suspect UMA likely started as prerenal but advanced to ATN 2/2 prolonged shock - Increased BMP, Mg, Phos, and iCal to Q6H for aggressive electrolyte replacement - Access lost 07/29 - IR placed tunneled HD catheter - Stop CRRT. HD on friday per nephro T1DM MD ISS D5 in NS as pt is not wanting to eat Anorexia Pt cleared for soft and bite sized diet per M[employer]OCAL LENS ASSEMBLER. Has not expressed desire to eat. -Start mirtazapine 15mg nightly for appetite stimulation CAD Stents placed 7 years ago. Pt was continued on plavix and ASA for unclear reason. Will need cardiology f/u to discuss DAPT COPD Bevespi Start spiriva Stable Small Right Temporal SDH (identified 07/26) Acute Metabolic Encephalopathy - Neurosurgery signed off as there is no intervention indicated for SDH - Per NCC, cEEG has shown no evidence of seizures - attribute her myoclonus to toxic and metabolic factors. Rec MRI if she is not at baseline cognition after extubation. NCC now signed off GI Prophylaxis: Pantoprazole IV DVT Prophylaxis: Heparin subcutaneous Disposition: Transfer to telemetry Associated attestation - Saroj Sadler MD - 08/03/2024 3:09 PM EDT I saw and evaluated the patient, participating in the cantrell portions of the service. I reviewed the resident s note. I agree with the resident s findings and plan. Saroj Sadler MD * Jennifer Saldaña - 08/02/2024 2:14 PM EDT Images from the original note were not included. PHYSICAL THERAPY [facility] Name/MRN: Sandy Deng ([id number]) Date: 08/02/2024 Attempt Note. PT Eval and Treat order received. Per RN, pt eating and fatigued following OT. Pt states she reallytired and observed to have difficulty keeping eyes open. Pt educated on benefits of getting up in chair. Pt still would like to rest. Will continue to follow and re-attempt as able. Jennifer Saldaña, JEY * Montana Warner RCP - 08/02/2024 12:05 PM EDT [facility] Respiratory Care Department Progress Note As part of the Respiratory Assessment Program (RAP), the following Respiratory Therapist evaluationhas been completed, including a chart review and clinical/physical assessment. Respiratory Therapist RAP Evaluation Guideline Points 0 1 2 3 4 Points Strongly Consider History Factor No Pulmonary conditions Stable Pulmonary condition(s) Surgery or Intervention that may impact Pulmonary system (at risk) Surgery or Intervention that is impacting Pulmonary system Active Exacerbation of Pulmonary Condition 1 Respiratory Pattern Regular, RR= 12-18 [place] or Increased RR= 19-24 Irregular, or RR= 25-30 SOB, talk in short sentences, or RR= 31-35 Severe SOB, accessory muscle use, one word answers, or RR>35 0 Aerosol Med(s), High Flow O2 Breath Sounds Clear Diminished in 1 lobe Diminished in <= 2 lobes Adventitious breath sounds Coarse crackles, Wheezes, or Diminished in >2 lobes 2 Aerosol Med(s), Bronchial Hygiene, Hyperinflation Cough & Sputum Strong cough, no secretion retention or production Weak cough, no secretion retention or production Weak cough, w/ production (less often than Q2hr), or secretion retention No cough, w/ secretion retention or production (less often than Q2hr) Significant secretion production (more often than Q2hr) or mucus plug 1 Aerosol Med(s), Bronchial Hygiene, Hyperinflation Level of Activity Ambulatory Ambulatory with Assist Up in chair or edge of bed (dangle) Non-ambulatory, bedridden with active ROM Completely paralyzed or without active ROM 1 Triage 5 0-2 Triage 4 3-5 Triage 3 6-10 Triage 2 11-14 Triage 1 >=15 Total 5 Triage Score = 4 TRIAGE SCORING - SUGGESTED FREQUENCIES Aerosol Therapy Bronchial Hygiene Hyperinflation Triage Score Q4h & PRN 1 Q4hWA (QID) & PRN 2 TID & PRN 3 BID & PRN 4 PRN 5 Therapy(s) Indicated Yes/No Aerosol Medication Hyperinflation Bronchial Hygiene High Flow Oxygen Flow Rates PEF (L/Sec) IVC FVC FEV1 FEV1/FVC Patient instructed and returned demonstration on use of MDI (with spacer, as appropriate) RT to enter/modify frequency of treatment order in EMR/EHR to match this RAP evaluation. Based on this RAP evaluation the following therapy is being initiated: At the following frequency: PRN Comments: Thank you for involving Respiratory in the care of this patient, * RENATO Kern - 08/02/2024 11:15 AM EDT Images from the original note were not included. Speech-Language Pathology SPEECH LANGUAGE PATHOLOGY [facility] Dysphagia Treatment Note Patient Name: Sandy Deng Evaluation Date: 08/02/2024 Date of : 1960 Admission Date: 07/26/2024 4:17 PM Age: 63 y.o. Room/Bed: T2/T2 A Subjective Patient alert, confused and cooperative. Seen upright in bed. Answers some basic questions with clear vocal quality. Follows some basic commands. Visitors at bedside - spouse. Spoke with MOODY Braga who cleared pt for treatment. Current Diet: Dietary Orders (From admission, onward) Start Ordered 08/01/24 0952 Adult diet Dysphagia - Pureed; Isolation Tray (Disposables) Diet effective now Question Answer Comment Diet type Dysphagia - Pureed Tray Modifier: Isolation Tray (Disposables) 08/01/24 0952 Aspiration Precautions: - Upright positioning for all PO intake - Slow rate of intake - Small bites/sips - Supervision with PO Oxygen: Oxygen Therapy: Supplemental oxygen O2 Delivery Method: Nasal cannula O2 Flow Rate (L/min): 2 L/min Pain: Pt denies any current pain. PPE Worn: gloves Objective & Assessment Dysphagia Treatment # of Activities: 1 Dysphagia Activity 1: Assess diet tolerance Patient has slight baseline congestion present, prior to consuming any PO. Patient consumes thin liquids via straw sips with swallow onset that is clinically timely with no change in vocal quality orcough noted. Patient consumes puree and soft and bite sized trials with functional mastication, good bolus management, and clear oral cavity post swallow. Plan & Recommendations Plan: ST to follow per dysphagia plan of care. Continue acute [employer]SEMBLER therapy per initial plan of care and established goals. Recommend Soft and bite-sized solids and Thin liquids and meds whole in puree or crushed in puree and the following precautions: - Upright positioning for all PO intake - Slow rate of intake - Small bites/sips - Supervision with PO D/C Recommendations: to be determined Education Education Given: swallowing strategies, diet recommendations Given To: patient, spouse, and RN Response: verbalizes understanding Goals Patient Stated Goal: To rest Encounter Problems Encounter Problems (Active) Swallowing Patient will tolerate recommended food and liquid consistencies without clinical signs and symptomsof aspirations (Progressing) Start: 07/31/24 Expected End: 08/15/24 Patient will participate in repeat clinical dysphagia evaluation (Completed) Start: 07/31/24 Expected End: 08/02/24 Resolved: 08/01/24 Patient will tolerate the least restrictive diet consistency to allow for safe consumption of dailymeals (Progressing) Start: 08/01/24 Expected End: 08/15/24 Therapy Time [employer]ER Individual Minutes Time In: 1057 Time Out: 1106 Minutes: 9 RENATO Kern * Jamey Muro OT - 08/02/2024 11:09 AM EDT Images from the original note were not included. OCCUPATIONAL THERAPY [facility] Initial Evaluation Name/MRN: Sandy Deng ([id number]) Evaluation Date: 08/02/2024 Date of : 1960 Admission Date: 07/26/2024 4:17 PM Age: 63 y.o. Room/Bed: T2-213/T2-213 A Discharge Recommendation: IP Rehab (If family declines IPR, recommend 24 hour assist with home health OT) Other: Continue to assess pending progress. Assessment IMPRESSION: Pt presented with SDH, fall (a month ago), and AMS upon admission. PMHx of COPD (3L O2 baseline), DM, CKD 4, HTN, CAD (PCI with stents in 2017). Per and pt, she is independent at baseline for ADL's and functional ambulation w/FWW, presenting below baseline. Pt is mainly limited by fatigue as well as diminished strength, balance, and endurance. Pt is currently Max A for bed mobility and Mod A progresses to CGA briefly with max VC's for static sitting balance EOB. Pt is also Max A for STS from EOB and to maintain standing balance. Pt is Max A for LB ADL's and Mod A for UB ADL's. Recommending IPR at this time as pt is unsafe to return home, is motivated, and can tolerate 3 hours of therapy once medically stable. Pt will continue to benefit from acute OT services while admitted to increase functional independence. Admitting Diagnosis: SDH Performance Deficits /Impairments: Decreased Functional Mobility, Decreased ADL status, Decreased Strength, Decreased Safety Awareness, Decreased Endurance, Decreased Balance, and Decreased Posture Prognosis: Fair Decision Making: Medium Complexity Subjective RN cleared for therapy. Pt supine in bed with present; agreeable to OT eval. Pt supine in bed at end of session with call light within reach, present, and RN notified. Pt noted to be very fatigued at end of session. Pain: Pt denies any current pain. Past Medical History: Past Medical History: Diagnosis Date COPD (chronic obstructive pulmonary disease) (HCC) Diabetic neuropathy (HCC) Hyperlipidemia Myocardial infarct (HCC) Stage 4 chronic kidney disease (HCC) Type 1 diabetes (HCC) Past Surgical History: Past Surgical History: Procedure Laterality Date CORONARY ANGIOPLASTY WITH STENT PLACEMENT CORONARY ANGIOPLASTY WITH STENT PLACEMENT Admission Diagnosis: Patient Active Problem List Diagnosis Date Noted SDH (subdural hematoma) ([facility]) 07/26/2024 COPD (chronic obstructive pulmonary disease) ([facility]) 07/26/2024 Type 1 diabetes mellitus with kidney complication ([facility]) 07/26/2024 Myocardial infarction ([facility]) 07/26/2024 Hyperlipidemia 07/26/2024 Diabetic neuropathy associated with type 1 diabetes mellitus ([facility]) 07/26/2024 Stage 4 chronic kidney disease ([facility]) 07/26/2024 Medical Precautions: No active isolations Proper PPE donned/doffed in accordance with facility standards. Fall Risk: [place] Fall Risk Score: 35 (Medium Risk) Precautions/Restrictions: Lines/Drains/Airways: 3L O2 NC, johnson, tele, hemodialysis cath, PIV Family/Caregiver Present: spouse Overall Cognitive Status: Exceptions - Arousal/alertness: appropriate responses to stimuli - Following commands: follows one step commands with increased time and follows one step commands with repetition - Safety judgement: decreased awareness of need for assistance and decreased awareness of need for safety - Initiation: requires cues for some - Sequencing: requires cues for some Overall Orientation Status: Oriented x4 Social/Functional History Patient admitted from home. Lives With: Spouse Type of Home: single family home Home Layout: Single Level Home Home Access: Stairs to Enter without Rails (# of stairs: 3) Bathroom Shower/Tub: Walk in Shower Toilet: Standard Home Equipment: front wheeled walker Homemaking Responsibilities: Independent Receives Help From: Spouse Active Aadc Plans Staff Officer: N/A Prior Level of Function ADL Assistance: Independent Ambulation Assistance: Independent Device(s) used: Front wheeled walker Transfer Assistance: Independent Objective ADLs LE Dressing: Max Assist, To quentin socks while sitting EOB, pt unable to reach. Upper Extremity Assessment AROM: WFL pt noted to perform movement very slowly due to fatigue PROM: WFL Strength: WFL 3/5 Vision: no visual deficits Hearing: normal Bed Mobility Supine to sit: Max Assist Sit to supine: Max Assist HOB elevated, pt noted to be very weak requiring assistance for LE's and trunk in and OOB. Transfers/Functional Mobility Sit to stand: Max Assist Stand to sit: Max Assist Sitting balance: Contact Guard, Mod Assist Pt is currently Mod A progresses to CGA briefly with max VC's for static sitting balance EOB. Pt isalso Max A for STS from EOB and to maintain standing balance. Pt unable to lift trunk fully uprightdue to fear of falling despite max encouragement. Pt demonstrates heavy posterior lean causing instability and is a fall risk. Pt noted to be SOB with exertion, educated pt on PLB technique. Device(s) used: Front wheeled walker AM-PAC AM-PAC Inpatient Daily Activity Raw Score: 15 ADL Inpatient CMS G-Code Modifier: CK Plan Pt would benefit from skilled acute OT services to address Strengthening, Balance Training, Self-Care/ADL Training, Functional Mobility Training, Endurance Training, Safety Education and Training, and Equipment Evaluation/Education. Frequency: 4x/week for 4 weeks Barriers: Impaired balance, Lower extremity weakness, Upper extremity weakness, Decreased endurance, and Limited safety awareness Safety/Education Safety Safety Devices in place: call light within reach, left in bed, gait belt, patient at risk for falls, and nurse notified Restraints: No Education Education Given To: patient and spouse Education Provided: OT Role, Plan of Care, ADL Adaptive Strategies, Transfer Training, Energy Conservation, Family Education, Equipment, Fall Prevention Education, and Discharge Recommendations Education Method: Verbal Barriers to Learning: None Education Outcome: Verbalized Understanding and Continued Education Needed Goals Patient Stated Goal: To go home. Encounter Problems Encounter Problems (Active) Balance Patient will maintain dynamic standing balance for 5-10 minutes with min assist in order to demonstrate decreased risk of falling. Start: 08/02/24 Expected End: 08/30/24 Bathing Patient will utilize adaptive techniques to bathe body with Min A Start: 08/02/24 Expected End: 08/30/24 Dressing Upper Extremities Patient will complete upper body dressing with SBA Start: 08/02/24 Expected End: 08/30/24 Dressings Lower Extremities Patient will dress lower body with Min A Start: 08/02/24 Expected End: 08/30/24 Mobility Patient will demonstrate functional ambulation with Mod A Start: 08/02/24 Expected End: 08/30/24 Transfers Patient will complete functional transfer with least restrictive device with min assist in order toprepare for ambulation. Start: 08/02/24 Expected End: 08/30/24 Patient will perform bed mobility with CGA in order to improve independence and prepare for out of bed mobility. Start: 08/02/24 Expected End: 08/30/24 Therapy Time Individual Co-treatment Time In 0950 Time Out 1016 Minutes 26 Timed Code Treatment Minutes: 12 Minutes (FA-1) Jamey Muro OT Patient's Occupational Therapy Plan of Care supervision is transferred to a [facility] Occupational Therapist. Goals and/or treatment plan was established in collaboration with patient/family/other representatives. * Karyn Jones MD - 08/02/2024 10:06 AM EDT Images from the original note were not included. Nephrology Progress Note Patient: Sandy Deng Room number: T2-213/T2-213 A Date of Admit: 07/26/2024 LOS: 7 days Referring physician: Saroj Sadler MD Outpatient X Ray Inspector: Christy uHerta Assessment/Plan: Mrs. Sandy Deng is a 63 year old female with PMH of CKD 4, DM type 1, HTN, CAD, COPD (3L [id number]), initially presenting with resp distress and delirium, Covid positive. She was eventuallyintubated. CT head showed a small right SDH. Consulted for UMA on CKD 4 - follows with Dr Wilson ([facility]). On review of available labs, Cr has been 2.4-2.8, last (04/26) Cr 2.4 eGFR 20, 24 hr [id number] mg. On admit, (07/26) Cr 4.56, CRRT initiation for severe acidosis in setting of hemodynamic instability 07/26-08/01. Renal plan: Non oliguric UMA on CKD 4 - Cr has been 2.4-2.8, last (04/26) Cr 2.4 eGFR 20, 24 hr [id number] mg. - On admit, (07/26) Cr 4.56, CRRT initiation for severe acidosis in setting of hemodynamic instability 07/26-08/01. - now non-oliguric, transition to HD likely on Friday 08/03 - pt has a Johnson now, output was 650 ml yesterday - pt has TDC 2. Electrolytes - last Na was 134, stable - K 4.1 3. Acid-base - bicarb stable at 23 - managed with dialysis 4. BP/volume status: -last BP 141/119 -on D5/NS @ 50 ml/hr, can dc IVFs if she is tolerating po -she has prn hydralazine ordered -hold off on starting ACEi/ARB due to UMA 5. Anemia - Hgb 7.8 - pRBC needs per primary team 6. ID -on meropenem -remdesivir completed, on decadron 7. Other: -seen by S&S, cleared for diet. Will follow along as directed. Thank you for allowing us to participate in the care of this patient. Dr. Medrano will start service tomorrow. Karyn Jones MD [facility] ([facility]) Pager [phone] Office phone: [phone] Office fax: [phone] 08/02/2024 Subjective Noted weekend events, episode of urinary retention - s/p FC placement. Now non- oliguric. CRRT dc 08/01. Pt appears confused Medications: Scheduled Meds:dexAMETHasone, 6 mg, IntraVENous, q24h Glycopyrrolate-Formoterol, 2 puff, Inhalation, BID heparin, 5,000 Units, SubCUTAneous, 2 times per day insulin glargine, 5 Units, SubCUTAneous, Nightly insulin regular, 0-12 Units, SubCUTAneous, q6h ipratropium-albuterol, 3 mL, Nebulization, BID meropenem, 1,000 mg, IntraVENous, q12h pantoprazole (ProtoNix) 40 mg in sodium chloride (PF) 0.9 % 10 mL injection, 40 mg, IntraVENous, BID sodium chloride 0.9%, 10 mL, IntraCATHeter, q12h Continuous Infusions:dextrose 5 % and sodium chloride 0.9 %, 75 mL/hr, Last Rate: 75 mL/hr (08/01/242154) Review of Systems: As above Physical Exam: Vitals: 08/02/24 0700 08/02/24 0800 08/02/24 0816 08/02/24 0900 BP: (!) 156/46 147/66 (!) 141/119 BP Location: Right arm Patient Position: Pulse: 76 77 79 84 Resp: Temp: (!) 35.9 C (96.7 F) TempSrc: Temporal SpO2: 100% 100% 100% 100% Weight: Height: Today's weight: Weight: 62 kg (136 lb 11 oz) Admission weight: Weight: 48 kg (105 lb 13.1 oz) Wt Readings from Last 3 Encounters: 07/29/24 62 kg (136 lb 11 oz) Estimated body mass index is 22.06 kg/m as calculated from the following: Height as of this encounter: 1.676 m (5' 6). Weight as of this encounter: 62 kg (136 lb 11 oz). Intake/Output Summary (Last 24 hours) at 08/02/2024 1006 Last data filed at 08/02/2024 0522 Gross per 24 hour Intake 1710 ml Output 214 ml Net 1496 ml [REMOVED] Urethral Catheter-Output (mL): 5 mL [REMOVED] Urethral Catheter Vgbdzyos-usz-Nukzso (mL): 0 mL Urethral Catheter Straight-tip;Temperature probe-Output (mL): 25 mL FIO2 needs: on 4 L NC General Appearance no acute distress, awake and alert but appears anxious HEENT Neck anicteric sclera, moist mucus membranes, normal external ears/nares, no facial edema Supple neck, midline trachea without tracheal deviation Chest symmetric, normal shape/expansion, no chest wall/sternal tenderness; R TDC Heart RRR, no audible pericardial rubs, no audible murmurs Lungs Coarse breath sounds Abdomen Skin soft without distension, normal bowel sounds, no grimacing on palpation no rash or subcutaneous nodules, warm and dry skin with good turgor Musculoskeletal no leg edema, normal hair distribution on legs + johnson catheter present Neurologic no resting tremor or myoclonus LABS: Recent Labs 07/31/24 1216 07/31/24 1801 08/01/24 0608 08/02/24 0025 WBC 15.0* -- 10.4 9.8 HGB 6.8* 8.0* 8.3* 7.8* HCT 21.6* 25.4* 25.9* 24.7* MCV 91.1 -- 88.1 89.8 PLT 158 -- 156 177 Recent Labs 08/01/24 0002 08/01/24 0608 08/01/24 1151 08/02/24 0025 NA 133* 133* 132* 134* K 4.2 4.0 4.1 4.1 CL 105 106 106 107 CO2 25 24 23 23 BUN 15 14 13 21* CREATININE 0.85 0.90 0.87 1.55* GLUCOSE 161* 119* 170* 212* CALCIUM 7.8* 7.4* 7.2* 7.4* MG -- -- -- 2.3 PHOS 3.0 2.6 2.3* 3.0 ANIONGAP 3 2* 3 3 Diagnostic Studies: CXR 07/30: IMPRESSION: 1. No acute cardiopulmonary abnormality identified. COPD changes. 2. Lines and support devices as above. * Simone Momin, DO - 08/02/2024 5:49 AM EDT ICU Progress Note Name: Sandy Deng : 1960(63 y.o.) Date: 08/02/24 Team: MICU Attending: Dr. Sadler Subjective: Hospital Summary: Found to have a subdural hematoma. She reportedly had a fall 1 month ago from bed. states she hit her head on the nightstand. She is on Plavix and ASA for a stent placed 7 years ago. Pt tested positive for COVID on 07/24. At [facility] ICU she had worsening hypoxia and was placed on NIV but failed. Was ultimately intubated. Noted to be hypotensive and started on levophed. Pt was transferred to [facility] for higher level of care. On arrival she was noted to have reduced urine output. Pt reportedlywith CKD 4 and family states has been told in the past she may need HD in the future 07/27: Overnight, patient had dialysis catheter placed and was started on CRRT. Initial infectious workup returned with CTX-M Pseudomonas and S aureus identified on pneumonia PCR. 07/29: Notably arrhythmic on tele (trigeminy/bigeminy), CMP ordered - Ca low. Discussed with nephro - increased lab frequency: BMP, Mg, Phos, and iCal Q6H to allow for aggressive repletion of electrolyte derangements. 07/30: S/P Tunneled HD catheter by IR 07/29. Tolerated procedure well. Was hypoglycemic overnight at <50. Received dextrose. Pt attempted to rip out ET tube and pulled it out by 3cm. Completed pulled out OG. S/P extubation at 4:20pm. 07/31: Pt removed johnson. 08/01: Planning to transition from CRRT to iHD per nephro. Johnson replaced and pt had around 150mL out. Interval Events: Pt resting comfortably. at bedside. Planning to transition to HD per nephro. Pt has no complaints. Still not expressing desire to eat. Will start mirtazapine for appetite stimulation. Scheduled Meds:dexAMETHasone, 6 mg, IntraVENous, q24h Glycopyrrolate-Formoterol, 2 puff, Inhalation, BID heparin, 5,000 Units, SubCUTAneous, 2 times per day insulin glargine, 5 Units, SubCUTAneous, Nightly insulin regular, 0-12 Units, SubCUTAneous, q6h ipratropium-albuterol, 3 mL, Nebulization, BID meropenem, 1,000 mg, IntraVENous, q12h pantoprazole (ProtoNix) 40 mg in sodium chloride (PF) 0.9 % 10 mL injection, 40 mg, IntraVENous, BID sodium chloride 0.9%, 10 mL, IntraCATHeter, q12h Continuous Infusions:dextrose 5 % and sodium chloride 0.9 %, 75 mL/hr, Last Rate: 75 mL/hr (08/01/245) Objective: Last Vitals: BP MAP 148/57 (08/02/24 0500) 78 (08/02/24 0500) Arterial BP MAP 99/37 (07/31/24 1320) 54 mmHg (07/31/24 1320) Temp 36.4 C (97.6 F) (08/02/24 0400) Pulse 76 (08/02/24 0500) Resp 20 (08/02/24 0500) SpO2 100 % (08/02/24 0500) Weight 62 kg (136 lb 11 oz) (07/29/24 0500) BMI Body mass index is 22.06 kg/m . I/O: 08/01 0700 - 08/02 0659 In: 1971 [I.V.:1971] Out: 643 [Urine:148] Ventilator: Resp Rate (Set): 16 Vt (Set, mL): 470 mL FiO2 (%): 30 % PEEP/CPAP (cm H2O): 8 cm H20 Inspiratory Time (sec): 1 sec Oxygen Delivery: O2 Flow Rate (L/min): 3 L/min Invasive Lines / Tubes / Drains: CVC Triple Lumen 07/26/24 Right Internal jugular (Active) Number of days: 6 Peripheral IV 08/01/24 Anterior;Right Forearm (Active) Number of days: 0 Urethral Catheter Straight-tip;Temperature probe (Active) Number of days: 1 Hemodialysis Cath Double Lumen 07/29/24 Right Tunneled catheter Subclavian (Active) Number of days: 3 Central Line Indication: Hemodialysis Johnson Indications: Hourly I&Os (Critical Care ONLY) Restraints: Restraints Non-Violent Or Non-Self Destructive Jul 27, 2024 3:35 Am Edt NA - patient is not restrained. Wounds: Constitutional: General Appearance [x]WDWN []Obese []Cachectic []Thin []Ill Eyes: Inspection of Pupils/Irises Pupils round and react: [x]Yes []No Sclera: []Icteric [x]Non-Icteric Inspection of Conjunctiva/Lids Conjunctiva: []Injected [x]Non-Injected Lids: [x]Intact []Lesion Present ENT/Mouth: External Inspection of ears/nose [] Normal [] Scar/Lesion/Mass Inspection of teeth/lips/gums Dentition: [x][place] Teeth []Dentures Lips/Gums: [x]Intact []Lesion Present Mucosa: [x]Pinson [x]Moist []Dry Neck: External Appearance Overall Appearance: []Normal []Lesion/Mass/Crepitus Present Trachea midline: []Yes []No Thyroid []Normal []Enlarged []Tender []Mass []Absent Respiratory: Respiratory effort []Labored [x]Non-Labored [] Mechanically-Ventilated Auscultation [x]Clear []Crackles []Wheezes []Rhonchi Cardiovascular: Auscultation Rate: [x]Regular []Irregular []Tachycardia []Bradycardia Rhythm: [x]Regular []Irregular Murmur: []Present []Absent Extremities Peripheral Edema: []Present []Absent Varicosities: []Present []Absent Gastrointestinal: Abdomen Palpation: [x]Soft []Firm []Tender []Non-Tender []Distended [x]Non-distended Mass: []Present []Absent Bowel Sounds: []Present []Absent Hernia: []Present []Absent Liver/Spleen: []Hepatosplenomegaly []Organomegaly Absent Musculoskeletal: Inspection of Digits and Nails Cyanosis: []Present [x]Absent Clubbing: []Present [x]Absent Ischemia: []Present [x]Absent Infection: []Present [x]Absent Extremities ROCHE Equally: Except ([]RUE []RLE []LUE []LLE) Strength/Tone: Intact and Normal ([]RUE []RLE []LUE []LLE) Skin: Inspection [x]Normal []Rash []Lesion []Ulcer Palpation [x]Warm []Cool [x]Dry []Clammy []Nodules []Induration []Skin-tightening Cap-Refill: [] <3 sec [] >3 seconds (delayed) Neurologic: GCS EYE: 4 - Opens spontaneously GCS MOTOR: 6 - Obeys commands for movement GCS VERBAL: 5 - Oriented to person, place, time Total GCS: 15 [] Sensation grossly intact Psych: Mental Status Alert: [x]Yes [] No Oriented: []x0 []X1 []X2 [x]x3 Mood/Affect []Normal [x]Flat []Agitated []Depressed []Anxious []Calm []Sedated []NAD Select Labs within last 24 hours- BMP: Recent Labs 08/01/24 0608 08/01/24 1151 08/02/24 0025 NA 133* 132* 134* K 4.0 4.1 4.1 CL 106 106 107 CO2 24 23 23 BUN 14 13 21* CREATININE 0.90 0.87 1.55* CALCIUM 7.4* 7.2* 7.4* MG -- -- 2.3 PHOS 2.6 2.3* 3.0 LFTs: Recent Labs 08/01/24 0002 08/01/24 0608 08/01/24 1151 ALBUMIN 2.1* 2.0* 2.1* Glucose: Recent Labs 07/31/24 0007 07/31/24 0604 07/31/24 0605 07/31/24 1216 07/31/24 1220 07/31/24 1801 07/31/24 1810 07/31/24 2005 08/01/24 0002 08/01/24 0003 08/01/24 0608 08/01/24 1148 08/01/24 1151 08/01/24 1733 08/01/24 2035 08/02/24 0025 08/02/24 0521 GLUCOSE 229* -- 161* 104* -- 173* -- -- 161* -- 119* -- 170* -- -- 212* -- POCGLU -- < > -- -- < > -- < > 107* -- 161* 120* 166* -- 170* 192* 217* 180* < > = values in this interval not displayed. CBC: Recent Labs 07/31/24 1216 07/31/24 1801 08/01/24 0608 08/02/24 0025 WBC 15.0* -- 10.4 9.8 HGB 6.8* 8.0* 8.3* 7.8* HCT 21.6* 25.4* 25.9* 24.7* PLT 158 -- 156 177 MCV 91.1 -- 88.1 89.8 RDW 15.2* -- 17.1* 17.8* ABGs: Recent Labs 07/30/24 0936 07/31/24 0605 PHART 7.399 7.335* [id number] 44.6 47.9* PO2ART 113.8* 143.8* QFL2FZE 26.9* 25.0 [id number] 30% Oxygen Nasal cannula Labs in Last 3 months: Lab Results Component Value Date TSH 3.472 07/26/2024 Microbiology- Sputum Cx: Lab Results Component Value Date RESPCULT Rare respiratory keven present. 07/27/2024 RESPCULT Few Staphylococcus aureus (A) 07/27/2024 Gram Stain: Lab Results Component Value Date LABGRAM (A) 07/27/2024 Many Polymorphonuclear leukocytes per low power field LABGRAM Few Epithelial cells per low power field (A) 07/27/2024 LABGRAM Moderate Gram positive cocci (A) 07/27/2024 PNA PCR: Lab Results Component Value Date HUMANMETAPNE Not Detected 07/27/2024 Legionella Ag: Lab Results Component Value Date LEGIONELLAPN Not Detected 07/27/2024 Assessment and Plan: Principal Problem: SDH (subdural hematoma) ([facility]) Active Problems: COPD (chronic obstructive pulmonary disease) ([facility]) 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 End-date: 08/04 UMA on CKD Stage 4, now requiring CRRT New Onset Arrhythmia likely 2/2 electrolyte derangements - resolved - Nephro following, appreciate recs - Suspect UMA likely started as prerenal but advanced to ATN 2/2 prolonged shock - Increased BMP, Mg, Phos, and iCal to Q6H for aggressive electrolyte replacement - Access lost 07/29 - IR placed tunneled HD catheter - Stop CRRT. HD on friday per nephro T1DM MD ISS D5 in NS as pt is not wanting to eat Anorexia Pt cleared for soft and bite sized diet per [employer]. Has not expressed desire to eat. -Start mirtazapine 15mg nightly for appetite stimulation CAD Stents placed 7 years ago. Pt was continued on plavix and ASA for unclear reason. Will need cardiology f/u to discuss DAPT COPD Bevespi Start spiriva Stable Small Right Temporal SDH (identified 07/26) Acute Metabolic Encephalopathy - Neurosurgery signed off as there is no intervention indicated for SDH - Per NCC, cEEG has shown no evidence of seizures - attribute her myoclonus to toxic and metabolic factors. Rec MRI if she is not at baseline cognition after extubation. NCC now signed off GI Prophylaxis: Pantoprazole IV DVT Prophylaxis: Heparin subcutaneous Disposition: Transfer to telemetry Associated attestation - Saroj Sadler MD - 08/02/2024 1:40 PM EDT I have personally performed a [id number] diagnostic evaluation on this patient on date of service08/02/24. History, labs, imaging studies, and electronic medical record have been reviewed by me. This note documented by the [x]warehouse incentive selector []TONJA reflects my history, exam, and medical decision making. I have reviewed and agree with the care plan. Changes were made in the orders as necessary. ROSdocumentation was reviewed and negative unless otherwise stated in HPI. Additional pertinent interval history, ROS, and physical exam findings: NAEON Assessment: Septic shock - resolved Acute hypoxic, hypercapnic respiratory failure - intubated 07/26, extubated 07/30 COVID 19 positive, outside hospital Pneumonia d/t MSSA, ESBL Pseudomonas UMA on CKD 4 - started on CRRT 07/26 Small right subdural hematoma, stable Diabetes mellitus type 1 with hyperglycemia Normocytic anemia, unclear baseline COPD Hyperlipidemia Acute encephalopathy , improved Plan: -Complete course of decadron, completed remdesivir -Complete course of meropenem -Appreciate nephrology recommendations now on iHD -Consult neuroCC, appreciate recommendations -Neurosurgery evaluated patient, no acute interventions. Plan to follow up within 2 weeks of discharge for repeat imaging. Hold Plavix until that time. Time spent preparing to see the patient, obtaining/reviewing separately obtained history, completing an appropriate medical examination of the patient, ordering medications/tests/procedures, documenting clinical information on the EMR, and/or coordinating care is a subsequent visit: 35 minutes (Level II). * Simone Momin DO - 08/01/2024 2:25 PM EDT ICU Progress Note Name: Sandy Deng : 1960(63 y.o.) Date: 08/01/24 Team: MICU Attending: Dr. Heath Subjective: Hospital Summary: Found to have a subdural hematoma. She reportedly had a fall 1 month ago from bed. states she hit her head on the nightstand. She is on Plavix and ASA for a stent placed 7 years ago. Pt tested positive for COVID on 07/24. At [facility] ICU she had worsening hypoxia and was placed on NIV but failed. Was ultimately intubated. Noted to be hypotensive and started on levophed. Pt was transferred to [facility] for higher level of care. On arrival she was noted to have reduced urine output. Pt reportedlywith CKD 4 and family states has been told in the past she may need HD in the future 07/27: Overnight, patient had dialysis catheter placed and was started on CRRT. Initial infectious workup returned with CTX-M Pseudomonas and S aureus identified on pneumonia PCR. 07/29: Notably arrhythmic on tele (trigeminy/bigeminy), CMP ordered - Ca low. Discussed with nephro - increased lab frequency: BMP, Mg, Phos, and iCal Q6H to allow for aggressive repletion of electrolyte derangements. 07/30: S/P Tunneled HD catheter by IR 07/29. Tolerated procedure well. Was hypoglycemic overnight at <50. Received dextrose. Pt attempted to rip out ET tube and pulled it out by 3cm. Completed pulled out OG. S/P extubation at 4:20pm. 07/31: Pt removed johnson. Interval Events: Pt resting comfortably in bed. NAD. Still on CRRT. She has no complaints at this time. Was cleared for pureed diet by [employer]. Scheduled Meds:dexAMETHasone, 6 mg, IntraVENous, q24h Glycopyrrolate-Formoterol, 2 puff, Inhalation, BID heparin, 5,000 Units, SubCUTAneous, 2 times per day insulin glargine, 5 Units, SubCUTAneous, Nightly insulin regular, 0-12 Units, SubCUTAneous, q6h ipratropium-albuterol, 3 mL, Nebulization, BID meropenem, 1,000 mg, IntraVENous, q12h pantoprazole (ProtoNix) 40 mg in sodium chloride (PF) 0.9 % 10 mL injection, 40 mg, IntraVENous, BID Continuous Infusions:dextrose 5 % and sodium chloride 0.9 %, 75 mL/hr, Last Rate: 75 mL/hr (08/01/24 0916) Objective: Last Vitals: BP MAP (!) 176/68 (08/01/24 1110) 100 (08/01/24 1100) Arterial BP MAP 99/37 (07/31/24 1320) 54 mmHg (07/31/24 1320) Temp 36.4 C (97.6 F) (08/01/24 0800) Pulse 82 (08/01/24 1100) Resp 22 (08/01/24 1100) SpO2 100 % (08/01/24 1100) Weight 62 kg (136 lb 11 oz) (07/29/24 0500) BMI Body mass index is 22.06 kg/m . I/O: 07/31 0700 - 08/01 0659 In: 2297 [I.V.:1949] Out: 3089 [Urine:625] Ventilator: Resp Rate (Set): 16 Vt (Set, mL): 470 mL FiO2 (%): 30 % PEEP/CPAP (cm H2O): 8 cm H20 Inspiratory Time (sec): 1 sec Oxygen Delivery: O2 Flow Rate (L/min): 4 L/min Invasive Lines / Tubes / Drains: CVC Triple Lumen 07/26/24 Right Internal jugular (Active) Number of days: 6 Urethral Catheter Straight-tip;Temperature probe (Active) Number of days: 1 Hemodialysis Cath Double Lumen 07/29/24 Right Tunneled catheter Subclavian (Active) Number of days: 2 Central Line Indication: Hemodialysis Johnson Indications: NA - patient does not have a Johnson catheter Restraints: Restraints Non-Violent Or Non-Self Destructive Jul 27, 2024 3:35 Am Edt NA - patient is not restrained. Wounds: Constitutional: General Appearance [x]WDWN []Obese []Cachectic []Thin [x]Ill Eyes: Inspection of Pupils/Irises Pupils round and react: [x]Yes []No Sclera: []Icteric [x]Non-Icteric Inspection of Conjunctiva/Lids Conjunctiva: []Injected [x]Non-Injected Lids: []Intact []Lesion Present ENT/Mouth: External Inspection of ears/nose [x] Normal [] Scar/Lesion/Mass Inspection of teeth/lips/gums Dentition: [x][place] Teeth []Dentures Lips/Gums: [x]Intact []Lesion Present Mucosa: [x]Pinson [x]Moist []Dry Neck: External Appearance Overall Appearance: []Normal []Lesion/Mass/Crepitus Present Trachea midline: []Yes []No Thyroid []Normal []Enlarged []Tender []Mass []Absent Respiratory: Respiratory effort []Labored [x]Non-Labored [] Mechanically-Ventilated Auscultation [x]Clear []Crackles []Wheezes []Rhonchi Cardiovascular: Auscultation Rate: [x]Regular []Irregular []Tachycardia []Bradycardia Rhythm: [x]Regular []Irregular Murmur: []Present [x]Absent Extremities Peripheral Edema: []Present [x]Absent Varicosities: []Present []Absent Gastrointestinal: Abdomen Palpation: [x]Soft []Firm []Tender []Non-Tender []Distended [x]Non-distended Mass: []Present []Absent Bowel Sounds: []Present []Absent Hernia: []Present []Absent Liver/Spleen: []Hepatosplenomegaly []Organomegaly Absent Musculoskeletal: Inspection of Digits and Nails Cyanosis: []Present [x]Absent Clubbing: []Present [x]Absent Ischemia: []Present [x]Absent Infection: []Present [x]Absent Extremities ROCHE Equally: Except ([]RUE []RLE []LUE []LLE) Strength/Tone: Intact and Normal ([]RUE []RLE []LUE []LLE) Skin: Inspection [x]Normal []Rash []Lesion []Ulcer Palpation [x]Warm []Cool [x]Dry []Clammy []Nodules []Induration []Skin-tightening Cap-Refill: [] <3 sec [] >3 seconds (delayed) Neurologic: GCS EYE: 4 - Opens spontaneously GCS MOTOR: 6 - Obeys commands for movement GCS VERBAL: 5 - Oriented to person, place, time Total GCS: 15 [] Sensation grossly intact Psych: Mental Status Alert: [x]Yes [] No Oriented: []x0 []X1 []X2 [x]x3 Mood/Affect [x]Normal []Flat []Agitated []Depressed []Anxious []Calm []Sedated []NAD Select Labs within last 24 hours- BMP: Recent Labs 08/01/24 0002 08/01/24 0608 08/01/24 1151 NA 133* 133* 132* K 4.2 4.0 4.1 CL 105 106 106 CO2 25 24 23 BUN 15 14 13 CREATININE 0.85 0.90 0.87 CALCIUM 7.8* 7.4* 7.2* PHOS 3.0 2.6 2.3* LFTs: Recent Labs 08/01/24 0002 08/01/24 0608 08/01/24 1151 ALBUMIN 2.1* 2.0* 2.1* Glucose: Recent Labs 07/30/24 1715 07/30/24 2000 07/31/24 0007 07/31/24 0604 07/31/24 0605 07/31/24 1216 07/31/24 1220 07/31/24 1801 07/31/24 1810 07/31/24 1843 07/31/24 2005 08/01/24 0002 08/01/24 0003 08/01/24 0608 08/01/24 1148 08/01/24 1151 GLUCOSE 114* -- 229* -- 161* 104* -- 173* -- -- -- 161* -- 119* -- 170* POCGLU -- < > -- 177* -- -- 127* -- 61* 118* 107* -- 161* 120* 166* -- < > = values in this interval not displayed. CBC: Recent Labs 07/31/24 0605 07/31/24 1216 07/31/24 1801 08/01/24 0608 WBC 13.3* 15.0* -- 10.4 HGB 7.1 7.1* 6.8* 8.0* 8.3* HCT 22.3* 21.6* 25.4* 25.9* PLT 146 158 -- 156 MCV 92.9 91.1 -- 88.1 RDW 15.2* 15.2* -- 17.1* ABGs: Recent Labs 07/30/24 0212 07/30/24 0936 07/31/24 0605 PHART 7.370 7.399 7.335* [id number] 46.3* 44.6 47.9* PO2ART 114.1* 113.8* 143.8* HRA1ONH 26.2* 26.9* 25.0 [id number] Vent 30% Oxygen Nasal cannula Labs in Last 3 months: Lab Results Component Value Date TSH 3.472 07/26/2024 Microbiology- Sputum Cx: Lab Results Component Value Date RESPCULT Rare respiratory keven present. 07/27/2024 RESPCULT Few Staphylococcus aureus (A) 07/27/2024 Gram Stain: Lab Results Component Value Date LABGRAM (A) 07/27/2024 Many Polymorphonuclear leukocytes per low power field LABGRAM Few Epithelial cells per low power field (A) 07/27/2024 LABGRAM Moderate Gram positive cocci (A) 07/27/2024 PNA PCR: Lab Results Component Value Date HUMANMETAPNE Not Detected 07/27/2024 Legionella Ag: Lab Results Component Value Date LEGIONELLAPN Not Detected 07/27/2024 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 End-date: 08/04 UMA on CKD Stage 4, now requiring CRRT Hyponatremia- improving Hyperkalemia- resolved New Onset Arrhythmia (Trigeminy/Bigeminy) likely 2/2 electrolyte derangements - Nephro following, appreciate recs - Suspect UMA likely started as prerenal but advanced to ATN 2/2 prolonged shock - Increased BMP, Mg, Phos, and iCal to Q6H for aggressive electrolyte replacement - Access lost 07/29 - IR placed tunneled HD catheter - Stop CRRT. HD on friday per nephro T1DM LD ISS D5 in NS as pt is not wanting to eat Stable Small Right Temporal SDH (identified 07/26) Acute Metabolic Encephalopathy - Neurosurgery signed off as there is no intervention indicated for SDH - Per NCC, cEEG has shown no evidence of seizures - attribute her myoclonus to toxic and metabolic factors. Rec MRI if she is not at baseline cognition after extubation. NCC now signed off GI Prophylaxis: Pantoprazole IV DVT Prophylaxis: Heparin subcutaneous Disposition: Remain in ICU Status Associated attestation - Kena Heath DO - 08/01/2024 3:21 PM EDT I have personally performed a [id number] diagnostic evaluation on this patient on date of service08/01/2024. History, labs, imaging studies, and electronic medical record have been reviewed by me. This note documented by the [x]warehouse incentive selector []TONJA reflects my history, exam, and medical decision making. I have reviewed and agree with the care plan. Changes were made in the orders as necessary. ROS documentation was reviewed and negative unless otherwise stated in HPI. Additional pertinent interval history, ROS, and physical exam findings: Ms Deng seen and evaluated at bedside. No acute events overnight. Awake and alert resting in bed.Continues to be slow to respond but oriented. Remains on CRRT Assessment: Septic shock - resolved Acute hypoxic, hypercapnic respiratory failure - intubated 07/26, extubated 07/30 COVID 19 positive, outside hospital Pneumonia d/t MSSA, ESBL Pseudomonas UMA on CKD 4 - started on CRRT 07/26 Small right subdural hematoma, stable Diabetes mellitus type 1 with hyperglycemia Normocytic anemia, unclear baseline COPD Hyperlipidemia Plan: -Supplemental O2 to maintain spO2 >90% -Complete course of decadron, completed remdesivir -Complete course of meropenem -Appreciate nephrology recommendations regarding CRRT, plan to discontinue and trial iHD -Consult neuroCC, appreciate recommendations -Neurosurgery evaluated patient, no acute interventions. Plan to follow up within 2 weeks of discharge for repeat imaging. Hold Plavix until that time. -Insulin to maintain serum glucose 140-180 Total critical care time for this patient with life-threatening unstable organ failure, including direct patient contact, management of life support systems, review of data including imaging and labs, and discussions with other team members and physicians at least 40 minutes so far today, excludingprocedures. * Joni Monson MD - 08/01/2024 1:28 PM EDT Images from the original note were not included. Nephrology Progress Note Patient: Sandy Deng Room number: T2-213/T2-213 A Date of Admit: 07/26/2024 LOS: 6 days Referring physician: Kena Heath DO Outpatient X Ray Inspector: Christy Huerta Assessment/Plan: Mrs. Sandy Deng is a 63 year old female with PMH of CKD 4, DM type 1, HTN, CAD, COPD (3L [id number]), initially presenting with resp distress and delirium, Covid positive. She was eventuallyintubated. CT head showed a small right SDH. Consulted for UMA on CKD 4 - follows with Dr Wilson ([facility]). On review of available labs, Cr has been 2.4-2.8, last (04/26) Cr 2.4 eGFR 20, 24 hr vdnsaqa=9889 mg. On admit, (07/26) Cr 4.56, CRRT initiation for severe acidosis in setting of hemodynamic instability. Renal plan: Non oliguric UMA - Bps high now, on CRRT and filter running out, will discontinue today and plan to transition to HDlikely on Friday depending on trends -pt has a Johnson now, output was 625 ml yesterday -pt has TDC 2. Electrolytes - last Na was 132, stable - K 4.1 3. Acid-base - bicarb stable at 23 - managed with CRRT 4. BP/volume status: -hypertensive now, last BP 176/68 -running neg 25 ml/hr -on D5/NS @ 50 ml/hr, can dc IVFs if she is tolerating po -she has prn hydralazine ordered 5. Anemia - Hgb 8.3 - pRBC needs per primary team 6. ID -on meropenem -remdesivir completed, on decadron 7. Other: -seen by S&S, cleared for diet. Will follow along as directed. Thank you for allowing us to participate in the care of this patient. Dr. Jones will be back on service tomorrow. Case discussed with MOODY. Joni Monson MD [facility] ([facility]) Office phone: [phone] Office fax: [phone] 08/01/2024 Subjective Patient seen this am during CRRT. Family at bedside. She had no new complaints, she appears confused, denied any pain, nausea or vomiting. Per RN, elizabeth replaced yesterday, patient was retaining 500 ml of urine. Medications: Scheduled Meds:dexAMETHasone, 6 mg, IntraVENous, q24h Glycopyrrolate-Formoterol, 2 puff, Inhalation, BID heparin, 5,000 Units, SubCUTAneous, 2 times per day insulin glargine, 5 Units, SubCUTAneous, Nightly insulin regular, 0-12 Units, SubCUTAneous, q6h ipratropium-albuterol, 3 mL, Nebulization, BID meropenem, 1,000 mg, IntraVENous, q12h pantoprazole (ProtoNix) 40 mg in sodium chloride (PF) 0.9 % 10 mL injection, 40 mg, IntraVENous, BID Continuous Infusions:dextrose 5 % and sodium chloride 0.9 %, 75 mL/hr, Last Rate: 75 mL/hr (08/01/24 0916) prismaSOL BGK 4/2.5, 750 mL/hr, Last Rate: 750 mL/hr (07/31/24 1543) prismaSOL BGK 4/2.5, 750 mL/hr, Last Rate: 750 mL/hr (07/31/24 1543) prismaSOL BGK 4/2.5, 750 mL/hr, Last Rate: 750 mL/hr (07/31/24 1543) Review of Systems: As above Physical Exam: Vitals: 08/01/24 0900 08/01/24 1000 08/01/24 1100 08/01/24 1110 BP: 144/60 145/54 (!) 171/74 (!) 176/68 BP Location: Patient Position: Pulse: 73 77 82 Resp: 17 18 22 Temp: TempSrc: SpO2: 100% 100% 100% Weight: Height: Today's weight: Weight: 62 kg (136 lb 11 oz) Admission weight: Weight: 48 kg (105 lb 13.1 oz) Wt Readings from Last 3 Encounters: 07/29/24 62 kg (136 lb 11 oz) Estimated body mass index is 22.06 kg/m as calculated from the following: Height as of this encounter: 1.676 m (5' 6). Weight as of this encounter: 62 kg (136 lb 11 oz). Intake/Output Summary (Last 24 hours) at 08/01/2024 1328 Last data filed at 08/01/2024 1100 Gross per 24 hour Intake 1959 ml Output 2661 ml Net -702 ml [REMOVED] Urethral Catheter-Output (mL): 5 mL [REMOVED] Urethral Catheter Mygooeaw-wyz-Hdhbxd (mL): 0 mL Urethral Catheter Straight-tip;Temperature probe-Output (mL): 0 mL FIO2 needs: on 4 L NC General Appearance no acute distress, awake and alert but appears anxious HEENT Neck anicteric sclera, moist mucus membranes, normal external ears/nares, no facial edema Supple neck, midline trachea without tracheal deviation Chest symmetric, normal shape/expansion, no chest wall/sternal tenderness; R TDC Heart RRR, no audible pericardial rubs, no audible murmurs Lungs Coarse breath sounds Abdomen Skin soft without distension, normal bowel sounds, no grimacing on palpation no rash or subcutaneous nodules, warm and dry skin with good turgor Musculoskeletal no leg edema, normal hair distribution on legs + johnson catheter present Neurologic no resting tremor or myoclonus LABS: Recent Labs 07/31/24 0605 07/31/24 1216 07/31/24 1801 08/01/24 0608 WBC 13.3* 15.0* -- 10.4 HGB 7.1 7.1* 6.8* 8.0* 8.3* HCT 22.3* 21.6* 25.4* 25.9* MCV 92.9 91.1 -- 88.1 PLT 146 158 -- 156 Recent Labs 07/31/24 1801 08/01/24 0002 08/01/24 0608 08/01/24 1151 NA 130* 133* 133* 132* K 3.9 4.2 4.0 4.1 CL 104 105 106 106 CO2 25 25 24 23 BUN 16 15 14 13 CREATININE 0.81 0.85 0.90 0.87 GLUCOSE 173* 161* 119* 170* CALCIUM 8.2* 7.8* 7.4* 7.2* PHOS 3.1 3.0 2.6 2.3* ANIONGAP 1* 3 2* 3 Diagnostic Studies: CXR 07/30: IMPRESSION: 1. No acute cardiopulmonary abnormality identified. COPD changes. 2. Lines and support devices as above. * RENATO Aguiar - 08/01/2024 9:06 AM EDT Images from the original note were not included. Speech-Language Pathology SPEECH LANGUAGE PATHOLOGY [facility] Dysphagia Treatment Note Patient Name: Sandy Deng Evaluation Date: 08/01/2024 Date of : 1960 Admission Date: 07/26/2024 4:17 PM Age: 63 y.o. Room/Bed: T2-213/T2-213 A Subjective Patient was awake and cooperative. Needed encouragement to participate. Spoke with MOODY Laughlin who cleared pt for treatment. Current Diet: Dietary Orders (From admission, onward) Start Ordered 07/31/24 1705 NPO diet with enteral medications Diet effective now Question: Medications? Answer: with enteral medications 07/31/24 1704 Oxygen: Oxygen Therapy: Supplemental oxygen O2 Delivery Method: Nasal cannula O2 Flow Rate (L/min): 4 L/min Pain: Pt denies any current pain. PPE Worn: surgical mask, face shield, gown, gloves Objective & Assessment Dysphagia Treatment # of Activities: 1 Dysphagia Activity 1: re-assess swallow function Patient was given ice chips, water via teaspoon and straw, and puree. AP transit appeared slightly prolonged but adequate. Swallows were clinically timely and with adequate laryngeal elevation upon palpation. No s/s of aspiration with any PO presented - no coughing or throat clearing, no change in vocal quality, and no increase in respiratory rate. Safe to initiate a PO diet. Plan & Recommendations Continue acute MULTIFOCAL LENS ASSEMBLER therapy per initial plan of care and established goals. Recommend Pureed solids and Thin liquids and meds as tolerated and the following precautions: - Upright positioning for all PO intake - Slow rate of intake - Small bites/sips - Supervision with PO D/C Recommendations: to be determined Education Education Given: role of therapy, diet recommendations Given To: patient, ?spouse, and RN Response: verbalizes understanding Goals Patient Stated Goal: no desire for anything to eat; I'm not hungry. Encounter Problems Encounter Problems (Active) Swallowing Patient will tolerate recommended food and liquid consistencies without clinical signs and symptomsof aspirations Start: 07/31/24 Expected End: 08/15/24 Patient will participate in repeat clinical dysphagia evaluation (Completed) Start: 07/31/24 Expected End: 08/02/24 Resolved: 08/01/24 Patient will tolerate the least restrictive diet consistency to allow for safe consumption of dailymeals Start: 08/01/24 Expected End: 08/15/24 Therapy Time MULTIFOCAL LENS ASSEMBLER Individual Minutes Time In: 0845 Time Out: 0900 Minutes: 15 Shanti Bianchi MA, CCC/MULTIFOCAL LENS ASSEMBLER * Joni Monson MD - 07/31/2024 2:48 PM EDT Images from the original note were not included. Nephrology Progress Note Patient: Sandy Deng Room number: T2-213/T2-213 A Date of Admit: 07/26/2024 LOS: 5 days Referring physician: Kena Heath DO Outpatient X Ray Inspector: Christy Huerta Assessment/Plan: Mrs. Sandy Deng is a 63 year old female with PMH of CKD 4, DM type 1, HTN, CAD, COPD (3L [id number]), initially presenting with resp distress and delirium, Covid positive. She was eventuallyintubated. CT head showed a small right SDH. Consulted for UMA on CKD 4 - follows with Dr Wilson ([facility]). On review of available labs, Cr has been 2.4-2.8, last (04/26) Cr 2.4 eGFR 20, 24 hr dswqjfs=9675 mg. On admit, (07/26) Cr 4.56, CRRT initiation for severe acidosis in setting of hemodynamic instability. Renal plan: 1. UMA, anuric - on CRRT - will consider transitioning to iHD in next 24-48 hours if Bps remain stable -pt has TDC 2. Electrolytes - last Na was 132, stable - K 3.7 on 2 K bath, will switch to 4 K baths 3. Acid-base - bicarb now 25 - managed with CRRT 4. BP/volume status: -last BP 93/59 -running neg 25 ml/hr -on D5/NS @ 50 ml/hr 5. Anemia - Hgb 6.8 - pRBC needs per primary team 6. ID -on meropenem -on remdesivir/decadron Will follow along as directed. Thank you for allowing us to participate in the care of this patient. Joni Monson MD [facility] ([facility]) Office phone: [phone] Office fax: [phone] 07/31/2024 Subjective Patient seen this am during CRRT, She was extubated yesterday. She complained of some nausea earlier this am. She has a productive cough. She is off pressors. Per RN, after flushing arterial line, BPreadings on the lower range. Johnson removed overnight. Medications: Scheduled Meds:dexAMETHasone, 6 mg, IntraVENous, q24h Glycopyrrolate-Formoterol, 2 puff, Inhalation, BID heparin, 5,000 Units, SubCUTAneous, 2 times per day insulin glargine, 5 Units, SubCUTAneous, Nightly insulin regular, 0-12 Units, SubCUTAneous, q6h ipratropium-albuterol, 3 mL, Nebulization, BID meropenem, 1,000 mg, IntraVENous, q12h pantoprazole (ProtoNix) 40 mg in sodium chloride (PF) 0.9 % 10 mL injection, 40 mg, IntraVENous, BID Continuous Infusions:dextrose 5 % and sodium chloride 0.9 %, 50 mL/hr, Last Rate: 50 mL/hr (07/31/24 1443) PrismaSol BGK 2/3.5, 750 mL/hr, Last Rate: 750 mL/hr (07/31/24 09) PrismaSol BGK 2/3.5, 750 mL/hr, Last Rate: 750 mL/hr (07/31/24904) PrismaSol BGK 2/3.5, 750 mL/hr, Last Rate: 750 mL/hr (07/31/24904) Review of Systems: As above Physical Exam: Vitals: 07/31/24 1200 07/31/24 1215 07/31/24 1305 07/31/24 1400 BP: (!) 81/60 102/76 93/59 BP Location: Right arm Patient Position: Lying Pulse: 82 77 76 74 Resp: 13 12 16 12 Temp: 36 C (96.8 F) TempSrc: Temporal SpO2: 100% 100% 100% 100% Weight: Height: Today's weight: Weight: 62 kg (136 lb 11 oz) Admission weight: Weight: 48 kg (105 lb 13.1 oz) Wt Readings from Last 3 Encounters: 07/29/24 62 kg (136 lb 11 oz) Estimated body mass index is 22.06 kg/m as calculated from the following: Height as of this encounter: 1.676 m (5' 6). Weight as of this encounter: 62 kg (136 lb 11 oz). Intake/Output Summary (Last 24 hours) at 07/31/2024 1448 Last data filed at 07/31/2024 1400 Gross per 24 hour Intake 2293 ml Output 3072 ml Net -779 ml [REMOVED] Urethral Catheter-Output (mL): 5 mL [REMOVED] Urethral Catheter Tsxoicig-nbl-Xfjibm (mL): 0 mL Urethral Catheter Straight-tip;Temperature probe-Output (mL): 200 mL FIO2 needs: on 4 L NC General Appearance no acute distress, awake and alert HEENT Neck anicteric sclera, moist mucus membranes, normal external ears/nares, no facial edema Supple neck, midline trachea without tracheal deviation Chest symmetric, normal shape/expansion, no chest wall/sternal tenderness; R TDC Heart RRR, no audible pericardial rubs, no audible murmurs Lungs Coarse breath sounds Abdomen Skin soft without distension, normal bowel sounds, no grimacing on palpation no rash or subcutaneous nodules, warm and dry skin with good turgor Musculoskeletal no leg edema, normal hair distribution on legs No johnson catheter present Neurologic no resting tremor or myoclonus LABS: Recent Labs 07/31/24 0007 07/31/24 0605 07/31/24 1216 WBC 14.0* 13.3* 15.0* HGB 7.2* 7.1 7.1* 6.8* HCT 22.9* 22.3* 21.6* MCV 92.0 92.9 91.1 PLT 135* 146 158 Recent Labs 07/30/24 1715 07/31/24 0007 07/31/24 0605 07/31/24 1216 NA 132* 132* 131* 132* K 4.5 4.5 4.2 3.7 CL 104 105 105 105 CO2 24 25 BUN 24* 24* 22* 19* CREATININE 0.98 0.98 0.91 0.89 GLUCOSE 114* 229* 161* 104* CALCIUM 8.7 8.7 8.7 8.7 PHOS 3.7 4.0 3.8 3.2 ANIONGAP 0* 3 3 2* Diagnostic Studies: CXR 07/30: IMPRESSION: 1. No acute cardiopulmonary abnormality identified. COPD changes. 2. Lines and support devices as above. * RENATO Underwood - 07/31/2024 2:22 PM EDT Images from the original note were not included. Speech-Language Pathology SPEECH LANGUAGE PATHOLOGY [facility] Bedside Swallow Evaluation Patient Name: Sandy Deng Evaluation Date: 07/31/2024 Date of : 1960 Admission Date: 07/26/2024 4:17 PM Age: 63 y.o. Room/Bed: T2-213/T2-213 A IMPRESSION: S/s oropharyngeal dysphagia. Intermittent overt clinical s/s pulmonary compromise with PO. Risk factors for aspiration include weak cough, recent intubation (07/26-07/30), lack of desire for po, toxic metabolic encephalopathy. (Pt is on CRRT) RECOMMENDATION: Recommend NPO with comfort sips of water and sips with medications. DO not use straw. Dysphagia NOMS: Level 2: Individual is not able to swallow safely by mouth for nutrition and hydration, but may take some consistency with consistent maximal cues in a therapy env only. Alternative method of feeding may be required. Will continue assessment 08/01. Pt would benefit from skilled acute MULTIFOCAL LENS ASSEMBLER services to address further assess po intake at bedside with recommendations as appropriate. Frequency: 3 days/wk for 2 weeks Barriers: Lack of desire for po, delayed response Prognosis: good D/C Recommendations: to be determined Subjective Patient alert and delayed responses. Seen upright in bed. Answers some basic questions with clear vocal quality. Follows some basic commands. Visitors at bedside - family/spouse. Spoke with MOODY Laughlin who cleared pt to be evaluated. Dysphagia History: No history of MULTIFOCAL LENS ASSEMBLER services in EMR with retrospective chart review Baseline Diet: Regular Current Diet: Dietary Orders (From admission, onward) Start Ordered 07/30/24 1656 NPO diet without enteral medications Diet effective now Question: Medications? Answer: without enteral medications 07/30/24 1655 Tube Feeding: no Tracheostomy: no Recent Chest Xray/CT of Chest: XR chest 1 view 07/30/2024 Impression 1. No acute cardiopulmonary abnormality identified. COPD changes. 2. Lines and support devices as above. Report Dictated on Electronically Signed By: Bird Webb MD Electronically Signed Date/Time: 07/30/2024 6:45 AM EDT Oxygen: Oxygen Therapy: Supplemental oxygen O2 Delivery Method: Nasal cannula O2 Flow Rate (L/min): 4 L/min Past Medical History: Past Medical History: Diagnosis Date COPD (chronic obstructive pulmonary disease) (HCC) Diabetic neuropathy (HCC) Hyperlipidemia Myocardial infarct (HCC) Stage 4 chronic kidney disease (HCC) Type 1 diabetes (HCC) Past Surgical History: Past Surgical History: Procedure Laterality Date CORONARY ANGIOPLASTY WITH STENT PLACEMENT CORONARY ANGIOPLASTY WITH STENT PLACEMENT Admission Diagnosis: Patient Active Problem List Diagnosis Date Noted SDH (subdural hematoma) ([facility]) 07/26/2024 COPD (chronic obstructive pulmonary disease) (HCC) 07/26/2024 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 at bedside. Pt was admitted to [facility] due to confusionand hallucinations. Pt has had episodes of staring off into space per family. Was found to have a subdural hematoma. She reportedly had a fall 1 month ago from bed. states she hit her head onthe nightstand. She is on Plavix and ASA for a stent placed 7 years ago. Pt tested positive for COVID on 07/24. Today at [facility] ICU she had worsening hypoxia and was placed on NIV but failed. Was ultimately intubated. Noted to be hypotensive and started on levophed. Pt was transferred to [facility] for higher level of care. On arrival she was noted to have reduced urine output. Pt reportedly with CKD 4 and family states has been told in the past she may need HD in the future. Pt has a hx of intention tremor. 07/27: Overnight, patient had dialysis catheter placed and was started on CRRT. This morning, vasopressor support is being weaned. Initial infectious workup returned with CTX-M Pseudomonas and S aureus identified on pneumonia PCR. The patient was seen and examined at bedside, is intubated sedated and mechanically ventilated and in no apparent distress. Coming down on pressor needs. Optimizing antibiotic regimen. Started insulin gtt dt history of T1DM on insulin pump. Per RN, when sedation lightened, the patient made some purposeless movements, but did not respond to requests. 07/29: Notably arrhythmic on tele (trigeminy/bigeminy), CMP ordered - Ca low. Discussed with nephro - increased lab frequency: BMP, Mg, Phos, and iCal Q6H to allow for aggressive repletion of electrolyte derangements. 07/30: S/P Tunneled HD catheter by IR 07/29. Tolerated procedure well. Was hypoglycemic overnight at <50. Received dextrose. Pt attempted to rip out ET tube and pulled it out by 3cm. Completed pulled out OG. S/P extubation at 4:20pm. Patient Complaint: No current c/o. Lack of desire for po at this time. Pain: Pt denies any current pain. PPE Worn: n95, gown, gloves Objective Bedside swallow eval completed. Oral Motor Mechanism Functional facial and labial movement/ROM. No asymmetry observed. Lingual RoM WFL. Palatal elevation slight reduction, difficult to visualized. Pt was flat. Oral Hygiene: clean Swallowing Examination PO Trials - ice chips, (teaspoon) - thin liquid, (teaspoon, cup edge, straw, fed by clinician) - puree, (teaspoon) Oral Phase Pt with adequate oral receipt of PO trials. Min anterior spillage. Unable to assess mastication.. Oral transit time appears WFL- disorganized. No oral residue. Additional Observations: Questionable spillage to laryngeal vestibule with straw drink of thin liquids. NO STRAWS. Single cup sip and ice chips without overt deficits. Pharyngeal Phase Hyolaryngeal excursion clinically appears adequate and timely per palpation. 1-3 swallows palpated per bolus, likely indicative of impaired pharyngeal clearance. Overt clinical s/s pulmonary compromise with Pureed solids and straw drink of Thin liquids and after bites of applesauce as evidenced by immediate cough, delayed throat clear. Additional Observations: Straw drink-immediate cough, weak cough and inability to expectorate. Limited effort. Education Education Given: swallowing strategies, diet recommendations, ST to follow up Given To: patient and RN Response: verbalizes understanding Goals Patient Stated Goal: Not to eat I really don't want any Encounter Problems Encounter Problems (Active) Swallowing Patient will tolerate recommended food and liquid consistencies without clinical signs and symptomsof aspirations Start: 07/31/24 Patient will participate in repeat clinical dysphagia evaluation Start: 07/31/24 Therapy Time MULTIFOCAL LENS ASSEMBLER Individual Minutes Time In: 1357 Time Out: 1419 Minutes: 22 RENATO Underwood * Joycelyn Guerra Benedicto, DO - 07/31/2024 7:54 AM EDT ICU Progress Note Name: Sandy Deng : 1960(63 y.o.) Date: 07/31/24 Team: MICU Attending: Dr. Jones Subjective: Hospital Summary: 63 year old female with a PMHx of COPD (3L O2 baseline), DM, CKD 4, HTN, CAD, [place] (PCI with stents in 2017). at bedside. Pt was admitted to [facility] due to confusion and hallucinations. Pt has had episodes of staring off into space per family. Was found to have a subdural hematoma. She reportedly had a fall 1 month ago from bed. states she hit her head on the nightstand. She is on Plavix and ASA for a stent placed 7 years ago. Pt tested positive for COVID on 07/24. Today at [facility] ICU she had worsening hypoxia and was placed on NIV but failed. Was ultimately intubated. Noted to be hypotensive and started on levophed. Pt was transferred to [facility] for higher level of care. On arrival she was noted to have reduced urine output. Pt reportedly with CKD 4 and familystates has been told in the past she may need HD in the future. Pt has a hx of intention tremor. 07/27: Overnight, patient had dialysis catheter placed and was started on CRRT. This morning, vasopressor support is being weaned. Initial infectious workup returned with CTX-M Pseudomonas and S aureus identified on pneumonia PCR. The patient was seen and examined at bedside, is intubated sedated and mechanically ventilated and in no apparent distress. Coming down on pressor needs. Optimizing antibiotic regimen. Started insulin gtt dt history of T1DM on insulin pump. Per RN, when sedation lightened, the patient made some purposeless movements, but did not respond to requests. 07/29: Notably arrhythmic on tele (trigeminy/bigeminy), CMP ordered - Ca low. Discussed with nephro - increased lab frequency: BMP, Mg, Phos, and iCal Q6H to allow for aggressive repletion of electrolyte derangements. 07/30: S/P Tunneled HD catheter by IR 07/29. Tolerated procedure well. Was hypoglycemic overnight at <50. Received dextrose. Pt attempted to rip out ET tube and pulled it out by 3cm. Completed pulled out OG. S/P extubation at 4:20pm. Interval Events: Pulled out johnson cath overnight. Denies pain. No blood or signs of trauma present on physical exam. NIH 6 on exam. Vitals: VSS, afebrile Drips/Continuous: CRRT, D5/NS 100ml/hr Lines/Drains: CVC triple lumen RIJ, HD Cath double lumen right tunneled catheter subclav Vent/O2: SpO2 high 90s on 4L Diet: NPO without enteral meds (pending speech eval) Scheduled Meds:dexAMETHasone, 6 mg, IntraVENous, q24h Glycopyrrolate-Formoterol, 2 puff, Inhalation, BID heparin, 5,000 Units, SubCUTAneous, 2 times per day insulin glargine, 5 Units, SubCUTAneous, Nightly insulin regular, 0-12 Units, SubCUTAneous, q6h ipratropium-albuterol, 3 mL, Nebulization, BID meropenem, 1,000 mg, IntraVENous, q12h mupirocin, 1 Application, Nasal, BID pantoprazole (ProtoNix) 40 mg in sodium chloride (PF) 0.9 % 10 mL injection, 40 mg, IntraVENous, BID Continuous Infusions:dextrose 5 % and sodium chloride 0.9 %, 100 mL/hr, Last Rate: 100 mL/hr (07/30/24 1738) PrismaSol BGK 2/3.5, 750 mL/hr, Last Rate: 750 mL/hr (07/30/241903) PrismaSol BGK 2/3.5, 750 mL/hr, Last Rate: 750 mL/hr (07/30/241903) PrismaSol BGK 2/3.5, 750 mL/hr, Last Rate: 750 mL/hr (07/30/241903) Objective: Last Vitals: BP MAP 102/67 (07/31/24 0100) 74 (07/31/24 0100) Arterial BP MAP 141/52 (07/31/24 0700) 75 mmHg (07/31/24699) Temp 36.1 C (97 F) (07/31/24 0400) Pulse 79 (07/31/24 07) Resp (!) 10 (07/31/24 07) SpO2 99 % (07/31/24699) Weight 62 kg (136 lb 11 oz) (07/29/24 0500) BMI Body mass index is 22.06 kg/m . I/O: 07/30 07 - 07/31 0659 In: 2270 [I.V.:1577] Out: 2718 Ventilator: Oxygen Delivery: O2 Flow Rate (L/min): 3 L/min Invasive Lines / Tubes / Drains: CVC Triple Lumen 07/26/24 Right Internal jugular (Active) Number of days: 1 Peripheral IV Anterior;Right Forearm (Active) Number of days: Peripheral IV Right Antecubital (Active) Number of days: Urethral Catheter Straight-tip (Active) Number of days: 0 Hi-Lo Evac ETT (Active) Number of days: 2 Feeding Tube (Active) Number of days: 1 Hemodialysis Cath Double Lumen 07/27/24 Left Non-tunneled catheter Internal jugular (Active) Number of days: 1 Central Line Indication: Inadequate peripheral access despite documented ultrasound attempts AND unable to place extended dwell PIV Johnson not present Restraints: Not restrained Wounds: Constitutional: General Appearance []WDWN [x]Obese []Cachectic []Thin []Ill Eyes: Inspection of Pupils/Irises Pupils round and react: [x]Yes []No Sclera: []Icteric [x]Non-Icteric Inspection of Conjunctiva/Lids Conjunctiva: []Injected []Non-Injected Lids: [x]Intact []Lesion Present ENT/Mouth: External Inspection of ears/nose [] Normal [] Scar/Lesion/Mass Inspection of teeth/lips/gums Dentition: [][place] Teeth []Dentures Lips/Gums: [x]Intact []Lesion Present Mucosa: [x]Pinson [x]Moist []Dry Neck: External Appearance Overall Appearance: [x]Normal []Lesion/Mass/Crepitus Present Trachea midline: [x]Yes []No Thyroid [x]Normal []Enlarged []Tender []Mass []Absent Respiratory: Respiratory effort []Labored []Non-Labored [x] Mechanically-Ventilated Auscultation []Clear [x]Crackles []Wheezes [x]Rhonchi Cardiovascular: Auscultation Rate: [x]Regular []Irregular []Tachycardia []Bradycardia Rhythm: []Regular [x]Irregular Murmur: []Present [x]Absent Extremities Peripheral Edema: []Present [x]Absent Varicosities: []Present [x]Absent Gastrointestinal: Abdomen Palpation: []Soft [x]Firm []Tender [x]Non-Tender []Distended [x]Non-distended Mass: []Present []Absent Bowel Sounds: [x]Present []Absent Hernia: []Present []Absent Liver/Spleen: []Hepatosplenomegaly []Organomegaly Absent Musculoskeletal: Inspection of Digits and Nails Cyanosis: []Present [x]Absent Clubbing: []Present [x]Absent Ischemia: []Present [x]Absent Infection: []Present [x]Absent Extremities ROCHE Equally: Except ([]RUE []RLE []LUE []LLE) Strength/Tone: Intact and Normal ([]RUE []RLE []LUE []LLE) Skin: Inspection [x]Normal []Rash []Lesion []Ulcer -Bruises present from IV sticks Palpation [x]Warm []Cool [x]Dry []Clammy []Nodules []Induration []Skin-tightening Cap-Refill: [x] <3 sec [] >3 seconds (delayed) Neurologic: GCS Eye: 4 - spontaneous GCS Motor: 6 - obeys commands GCS Verbal: 5 - oriented Total GCS: 15 [] Sensation grossly intact Psych: Mental Status Alert: [x]Yes [] No Oriented: []x0 []X1 []X2 [x]x3 Mood/Affect [x]Normal []Flat []Agitated []Depressed []Anxious [x]Calm []Sedated []NAD - Agitated upon awakening [facility] within last 24 hours- BMP: Recent Labs 07/28/24 1257 07/28/24 1808 07/30/24 1715 07/31/24 0007 07/31/24 0605 NA 130* < > 132* 132* 131* K 4.5 < > 4.5 4.5 4.2 CL 102 < > 104 105 105 CO2 24 < > 24 24 BUN 31* < > 24* 24* 22* CREATININE 1.50* < > 0.98 0.98 0.91 CALCIUM 7.3* < > 8.7 8.7 8.7 MG 2.7* -- -- -- -- PHOS 3.5 < > 3.7 4.0 3.8 < > = values in this interval not displayed. LFTs: Recent Labs 07/28/24 1257 07/28/24 1808 07/30/24 1715 07/31/24 0007 07/31/24 0605 AST 44 -- -- -- -- ALT 23 -- -- -- -- PROT 4.6* -- -- -- -- ALBUMIN 2.2* < > 2.0* 2.2* 2.1* BILITOT 0.5 -- -- -- -- ALKPHOS 78 -- -- -- -- < > = values in this interval not displayed. Glucose: Recent Labs 07/29/24 1736 07/29/24 1844 07/29/24 1900 07/29/24 2014 07/29/24 20207/29/24 20207/30/24 0028 07/30/24 0557 07/30/24 0601 07/30/24 1114 07/30/24 1715 07/30/24 2000 07/31/24 0006 07/31/24 0007 07/31/24 0604 07/31/24 0605 GLUCOSE 33* -- -- -- 163* -- 147* 149* -- 89 114* -- -- 229* -- 161* POCGLU -- < > 83 <50* -- 177* 157* -- 155* -- -- 165* 237* -- 177* -- < > = values in this interval not displayed. Procal: No results for input(s): PROCAL in the last 72 hours. CBC: Recent Labs 07/30/24 0557 07/30/24 0936 07/31/24 0007 07/31/24 0605 WBC 13.6* -- 14.0* 13.3* HGB 7.3* < > 7.2* 7.1 7.1* HCT 23.0* -- 22.9* 22.3* PLT 161 -- 135* 146 MCV 90.2 -- 92.0 92.9 RDW 15.5* -- 15.1* 15.2* < > = values in this interval not displayed. ABGs: Recent Labs 07/30/24 0212 07/30/24 0936 07/31/24 0605 PHART 7.370 7.399 7.335* [id number] 46.3* 44.6 47.9* PO2ART 114.1* 113.8* 143.8* [id number] 26.2* 26.9* 25.0 [id number] Vent 30% Oxygen Nasal cannula Lactic Acid: No results for input(s): LACTATE in the last 72 hours. INR: No results for input(s): INR in the last 72 hours. Cardiac Injury Profile: Recent Labs 07/29/24 1115 CKTOTAL 564* Labs in Last 3 months: Lab Results Component Value Date TSH 3.472 07/26/2024 Microbiology- Urine Cx: No results found for: URINECX Blood Cx: No results found for: BLOODCX Sputum Cx: Lab Results Component Value Date RESPCULT Rare respiratory keven present. 07/27/2024 RESPCULT Few Staphylococcus aureus (A) 07/27/2024 Gram Stain: Lab Results Component Value Date LABGRAM (A) 07/27/2024 Many Polymorphonuclear leukocytes per low power field LABGRAM Few Epithelial cells per low power field (A) 07/27/2024 LABGRAM Moderate Gram positive cocci (A) 07/27/2024 PNA PCR: Lab Results Component Value Date HUMANMETAPNE Not Detected 07/27/2024 COVID19: No results found for: COVID19 Legionella Ag: Lab Results Component Value Date LEGIONELLAPN Not Detected 07/27/2024 Strep Ag: No results for input(s): STREPPNEUMO in the last 72 hours. Imaging- CXR 07/27 IMPRESSION: 1. Probable small layering right basilar pleural effusion. 2. COPD changes. 3. Lines and support devices as above. 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 Rec MRI if she is not at baseline cognition after extubation. NCC now signed off - NIH 6. Protecting airway. Will continue to monitor - Currently NPO without enteral meds. Will adjust orders pending speech eval Acute on Chronic Hypoxemic, Hypercapnic Resp Failure Septic Shock 2/2 Polymicrobial PNA COVID pos at OSH, micro testing pos for non-COVID coronavirus on admission - Per ID stewardship, tx with mary ann for CTX-M pseudomonas coverage - Start Date: 07/27 - End Date: 08/02 - Cont Decadron x10d. End-date: 08/04 UMA on CKD Stage 4, now requiring CRRT Hyponatremia Hyperkalemia New Onset Arrhythmia (Trigeminy/Bigeminy) likely 2/2 electrolyte derangements - Nephro following, appreciate recs - Suspect UMA likely started as prerenal but advanced to ATN 2/2 prolonged shock - Increased BMP, Mg, Phos, and iCal to Q6H for aggressive electrolyte replacement - Access lost 07/29 - IR placed tunneled HD catheter - Cont CRRT - now running smoothly - Initial Na 125, now 131 - Minimal/no urine output (unclear how much urine she makes at baseline with CKD). Unable to obtainI&Os without johnson, but is likely unnecessary to replace GI Prophylaxis: Pantoprazole IV DVT Prophylaxis: Heparin, SCDs Disposition: Remain in ICU Status Critical Care Time: Total critical care time caring for this patient with life threatening, unstable organ failure, including direct patient contact, management of life support systems, review of data including imaging and labs, discussions with other team members and physicians, excluding procedures. Associated attestation - Kena Heath DO - 07/31/2024 1:03 PM EDT I have personally performed a [id number] diagnostic evaluation on this patient on date of service07/31/2024. History, labs, imaging studies, and electronic medical record have been reviewed by me. This note documented by the [x]warehouse incentive selector []TONJA reflects my history, exam, and medical decision making. I have reviewed and agree with the care plan. Changes were made in the orders as necessary. ROS documentation was reviewed and negative unless otherwise stated in HPI. Additional pertinent interval history, ROS, and physical exam findings: Ms Deng seen and evaluated at bedside. Pulled johnson out overnight. Off vasopressors. On nasal cannula. Still with some confusion. Remains on CRRT, no urine output. Assessment: Septic shock Acute hypoxic, hypercapnic respiratory failure - intubated 07/26, extubated 07/30 COVID 19 positive, outside hospital Pneumonia d/t MSSA, ESBL Pseudomonas UMA on CKD 4 - started on CRRT 07/26 Small right subdural hematoma, stable Diabetes mellitus type 1 with hyperglycemia Normocytic anemia, unclear baseline COPD Hyperlipidemia Plan: -Supplemental O2 to maintain spO2 >90% -Complete course of decadron, completed remdesivir -Complete course of meropenem -Appreciate nephrology recommendations regarding CRRT -Consult neuroCC, appreciate recommendations -Neurosurgery evaluated patient, no acute interventions. Plan to follow up within 2 weeks of discharge for repeat imaging. Hold Plavix until that time. -Insulin to maintain serum glucose 140-180 Total critical care time for this patient with life-threatening unstable organ failure, including direct patient contact, management of life support systems, review of data including imaging and labs, and discussions with other team members and physicians at least 40 minutes so far today, excludingprocedures. * Mary Mcintosh RRT - 07/30/2024 11:48 AM EDT 07/30/24 1141 Spontaneous Breathing Trial Weaning Start Time 1134 Weaning Tidal Volume 200 mL Weaning Respiratory Rate 5 (5-10) Weaning Tolerance Fair Weaning Stop Time 1141 Weaning Duration (min) 7 Spontaneous Breathing Trial (SBT - RT) Outcome Respiratory rate less than 8/min - SBT Failure * Karyn Jones MD - 07/30/2024 11:46 AM EDT Images from the original note were not included. Initial Nephrology Consult Note Patient: Sandy Deng Room number: T2-213/T2-213 A Date of Admit: 07/26/2024 LOS: 4 days Referring physician: Kena Heath DO Outpatient X Ray Inspector: Christy Huerta Reason for Consult: Asked to see/evaluate by primary service for opinion regarding: UMA on CKD Assessment/Plan: 1. UMA, anuric - Cr has been 2.4-2.8, last (04/26) Cr 2.4 eGFR 20 - On admit, (07/26) Cr 4.56, lowest SBP 90s, got 1 L NS bolus, on levo gtt (vasopressin now dc). CRRT initiated via L internal jugular non-tunneled dialysis cath 07/26, running even - suspect started as prerenal -> ATN (prolonged prerenal/shock). No obstruction on renal us (hasB small/strophic kidneys) - unable to send urine studies (anuric); CK 865 (can re-check), C3 56/C4 10 sl low ? Infectious GN component (tx if mgmt of infection) - vascath malfunction: WBC nL, no evidence of bacteremia; s/p R TDC placement 07/29 - just came off levo gtt - cont CRRT for today, had been goal of even, try to do neg 25/hr - if continues to be off pressors, consider transitioning to iHD in next 24-48 hours - monitor K, phos, iCa: expect to drop with CRRT, replace accordingly 2. CKD 4 - follows with Dr Christy Huerta ([place]). - On review of available labs, Cr has been 2.4-2.8, last (04/26) Cr 2.4 eGFR 20, 24 hr ogcazib=8473 mg. - Home med includes losartan 25 mg daily 3. Electrolytes - Hyponatremia, Na was 132, improving - Hyperkalemia - K trending higher at 5.4, switch to 2K bags 4. Acid-base - bicarb now 26 - lactate 0.9 - managed with CRRT 5. BMD; Secondary HPT - hypocalcemia: iCa 4.1. team repleting. Monitor iCa q6-8 alexandra if still with arrhythmia issues; and repeat if low (expect to drop with CRRT) - hyperphosphatemia, improving with CRRT 6. Anemia - plts normal - defer pRBC needs to primary 7. Acute resp failure/COVID - intubated, per [facility] - remdesivir/steroids/meropenem 8. Altered MS, improving Trace R SDH - Exam improving in tandem with improvement of medical illness consistent with toxic/metabolic encephalopathy. - Neurocrit now sign off - cEEG no evidence of seizures per Neuro PLAN: try to aim for net neg, start with -25/hr If continues to be off levo, consider transitioning to iHD Dr Joni Monson covering this weekend Will follow along as directed. Thank you for allowing us to participate in the care of this patient. HPI: Sandy Deng is a 63 y.o. female with a past medical history of: COPD (3L O2 baseline), DM type 1, CKD 4, HTN, CAD (PCI with stents in 2017). who was admitted by,Ino Conte MD, for SDH (subdural hematoma) (HCC) [S06.5XAA]. Mrs. Deng is a 63 year old female with PMH of COPD (3L O2 baseline), DM type 1, CKD 4, HTN, CAD (PCI with stents in 2017). initially presenting with resp distress and delirium, Covid positive. She was eventually intubated. CT head showed a small right SDH. Consulted for UMA on CKD 4 - follows with Dr Christy Huerta ([place]). On review of available labs, Cr has been 2.4-2.8, last (04/26) Cr 2.4 eGFR 20, 24 hr mvtuxwe=6326 mg. Home med includes losartan 25 mg daily. On admit, (07/26) Cr 4.56, lowest SBP 90s, got 1 L NS bolus, on levo gtt (vasopressin nowdc). Oligoanuric. Was on bicarb gtt but then needed CRRT initiation for severe acidosis in setting of hemodynamic instability. cEEG no exidence of seizures. Had non-tunneled cath malfunction, now s/p R TDC 07/05. Levo just turned off. CRRT had been running even. MS improving. Contrast exposure: none Nephrotoxic drug exposure: no documented use of aminoglycosides or NSAIDs. Hypotensive episodes: none documented. Home medications/pre-hospital medications reviewed. Notable for: losartan 25 mg daily Medications: Scheduled Meds:dexAMETHasone, 6 mg, IntraVENous, q24h Glycopyrrolate-Formoterol, 2 puff, Inhalation, BID heparin, 5,000 Units, SubCUTAneous, 2 times per day insulin glargine, 5 Units, SubCUTAneous, Nightly insulin regular, 0-12 Units, SubCUTAneous, q6h ipratropium-albuterol, 3 mL, Nebulization, BID meropenem, 1,000 mg, IntraVENous, q12h mupirocin, 1 Application, Nasal, BID pantoprazole (ProtoNix) 40 mg in sodium chloride (PF) 0.9 % 10 mL injection, 40 mg, IntraVENous, BID remdesivir (Veklury) 100 mg in sodium chloride 0.9 % 250 mL IVPB, 100 mg, IntraVENous, q24h Continuous Infusions:dexmedeTOMIDine, 0.1-1.5 mcg/kg/hr, Last Rate: 0.6 mcg/kg/hr (07/30/24 1120) fentaNYL, 25-200 mcg/hr, Last Rate: 80 mcg/hr (07/29/24 2207) norepinephrine, 2-100 mcg/min, Last Rate: Stopped (07/30/24 0944) PrismaSol BGK 2/3.5, 750 mL/hr PrismaSol BGK 2/3.5, 750 mL/hr PrismaSol BGK 2/3.5, 750 mL/hr Allergies: Not on File Review of Systems: Unable to perform ROS, pt intubated Physical Exam: Vitals: 07/30/24 1000 07/30/24 1015 07/30/24 1030 07/30/24 1130 BP: BP Location: Pulse: 64 67 58 62 Resp: 16 15 16 17 Temp: TempSrc: SpO2: 100% 100% 100% 100% Weight: Height: Today's weight: Weight: 62 kg (136 lb 11 oz) Admission weight: Weight: 48 kg (105 lb 13.1 oz) Wt Readings from Last 3 Encounters: 07/29/24 62 kg (136 lb 11 oz) Estimated body mass index is 22.06 kg/m as calculated from the following: Height as of this encounter: 1.676 m (5' 6). Weight as of this encounter: 62 kg (136 lb 11 oz). @IODETAILS@ Intake/Output Summary (Last 24 hours) at 07/30/2024 1146 Last data filed at 07/30/2024 1100 Gross per 24 hour Intake 2542 ml Output 2559 ml Net -17 ml [REMOVED] Urethral Catheter-Output (mL): 5 mL Urethral Catheter Xqplrfmx-avc-Xcoqqe (mL): 0 mL FIO2 needs: Patient Vitals for the past 1 hrs: FiO2 (%) 07/30/24 1130 30 % General Appearance no acute distress, intubated, sedated HEENT Neck anicteric sclera, moist mucus membranes, normal external ears/nares, no facial edema Supple neck, midline trachea without tracheal deviation, no palpable cervical or supraclavicular lymph nodes Chest symmetric, normal shape/expansion, no chest wall/sternal tenderness; L int jug temp dialysis cath Heart RRR, no audible pericardial rubs, no audible murmurs, no palpable LV heave. Lungs Fine rales, easy effort on vent Abdomen Skin soft without distension, normal bowel sounds, no grimacing on palpation no rash or subcutaneous nodules, warm and dry skin with good turgor Musculoskeletal no leg edema, normal hair distribution on legs johnson catheter present Neurologic no resting tremor, myoclonic movement less pronounced Psychiatric Unable to assess LABS: Recent Labs 07/28/24 0409 07/29/24 0557 07/29/24 0558 07/30/24 0212 07/30/24 0557 07/30/24 0936 WBC 11.5* 6.5 -- -- 13.6* -- HGB 9.2 8.8* 7.7* < > 7.9 7.3* 7.7 HCT 25.8* 23.1* -- -- 23.0* -- MCV 84.6 85.9 -- -- 90.2 -- PLT 160 141 -- -- 161 -- < > = values in this interval not displayed. No results found for: IRON, TIBC, FERRITIN No results found for: [id number], FOLATE Recent Labs 07/27/24 2114 07/28/24 0409 07/28/24 1257 07/28/24 1808 07/29/24 1115 07/29/24 1736 07/29/24 2021 07/30/24 0028 07/30/24 0557 NA 131* 131* 130* < > 131* 133* -- 132* 132* K 3.6 4.5 4.5 < > 4.9 5.0 -- 5.3* 5.4* CL 102 104 102 < > 104 106 -- 106 105 CO2 24 23 24 < > 26 26 -- 24 26 BUN 41* 34* 31* < > 35* 41* -- 32* 31* CREATININE 2.18* 1.80* 1.50* < > 1.59* 1.94* -- 1.54* 1.37* GLUCOSE 87 143* 149* < > 145* 33* 163* 147* 149* CALCIUM 7.3* 7.4* 7.3* < > 7.6* 8.6 -- 7.6* 7.3* MG 1.9 2.2 2.7* -- -- -- -- -- -- PHOS -- 3.6 3.5 < > 3.7 4.4 -- 4.2 4.1 ANIONGAP 6 4 4 < > 2* 2* -- 1* 1* < > = values in this interval not displayed. Lab Results Component Value Date CAION 4.10 (L) 07/30/2024 Lab Results Component Value Date CKTOTAL 564 (H) 07/29/2024 CKTOTAL 865 (H) 07/27/2024 ALT 23 07/28/2024 AST 44 07/28/2024 No results for input(s): INR, PROTIME, PTT in the last 72 hours. No results for input(s): COLORU, CLARITYU, PH, PHUR, LABSPEC, GLUCOSEU, BLOODU, LEUKOCYTESUR, NITRITE, BILIRUBINUR, UROBILINOGEN, BACTERIA, AMORPHOUS, CASTS in the last 72hours. No lab exists for component: PROTEINUA, KEYTONESU, RBCUA, WBCUA, CRYSTAL No results for input(s): NAUR, KUR, CLUR in the last 72 hours. No lab exists for component: CO2UR, CRUR Diagnostic Studies: TTE: CXR: reviewed in PACS Personally reviewed MARS, labs, radiologic studies and notes. Karyn Jones MD Pager [phone] [facility] [phone] D/w ICU * Torito Mahajan - 07/30/2024 10:36 AM EDT NEUROCRITICAL CARE PROGRESS NOTE Patient Name: Sandy Deng Patient : 1960 Acct: [id number] Date of Admission: 07/26/2024 Room/Bed: Rust213/[facility] A PCP: Bird Lujan Interval Events: - Removed from EEG - Neuro exam improving, following commands Current Hospital Medications: Current Facility-Administered Medications: alteplase (Cathflo Activase) 2 mg in sterile water 2 mL injection, 2 mg, IntraCATHeter, PRN, Saroj Knox MD, 2 mg at 07/29/24 0646 dexAMETHasone (Decadron) injection 6 mg, 6 mg, IntraVENous, q24h, Kena Heath DO, 6 mg at 07/29/241809 dexmedeTOMIDine in NS (Precedex) 400 mcg in 100 mL (4 mcg/mL) infusion, 0.1-1.5 mcg/kg/hr, IntraVENous, Continuous, Lakhwinder Gustafson DO, Last Rate: 6.2 mL/hr at 07/30/24 1000, 0.4 mcg/kg/hr at 07/30/24999 dextrose 5 % infusion, 100 mL/hr, IntraVENous, PRN, Daecon Mazariegos MD dextrose 50 % solution 12.5 g, 12.5 g, IntraVENous, PRN, Deacon Mazariegos MD, 12.5 g at 07/29/242017 fentaNYL (Sublimaze) 1000 mcg in sodium chloride 0.9 % 100 mL 10 mcg/mL infusion, 25-200 mcg/hr, IntraVENous, Continuous, Clara Mayes DO, Last Rate: 8 mL/hr at 07/29/242206, 80 mcg/hr at 07/29/242206 glucagon (human recombinant) injection 1 mg, 1 mg, IntraMUSCular, PRN, Deacon Mazariegos MD glucose oral gel 15 g, 15 g, Oral, PRN, Deacon Mazariegos MD Glycopyrrolate-Formoterol (Bevespi Aerosphere) 9-4.8 MCG/ACT inhaler 2 puff, 2 puff, Inhalation, BID, Deacon Mazariegos MD heparin injection 5,000 Units, 5,000 Units, SubCUTAneous, 2 times per day, Joycelyn Diane DO, 5,000 Units at 07/30/24 0935 hydrALAZINE (Apresoline) injection 10 mg, 10 mg, IntraVENous, q2h PRN, Deacon Mazariegos MD insulin glargine (Lantus) injection 5 Units, 5 Units, SubCUTAneous, Nightly, Saroj Knox MD, 5 Units at 07/28/242014 insulin regular (HumuLIN R,NovoLIN R) injection 0-12 Units, 0-12 Units, SubCUTAneous, q6h, Lakhwinder Gustafson DO ipratropium-albuterol (Duo-Neb) 0.5-2.5 mg/3 mL nebulizer solution 3 mL, 3 mL, Nebulization, BID, Deacon Mazariegos MD, 3 mL at 07/29/241943 labetalol (Normodyne,Trandate) injection 10 mg, 10 mg, IntraVENous, q15 min PRN, Deacon Mazariegos MD [COMPLETED] meropenem (Merrem) 1,000 mg in sodium chloride 0.9 % 100 mL IVPB, 1,000 mg, IntraVENous, Once, Stopped at 07/27/24 1538 FOLLOWED BY meropenem (Merrem) 1,000 mg in sodium chloride 0.9 % 100 mL IVPB, 1,000 mg, IntraVENous, q12h, Kena Heath DO, Stopped at 07/30/24 0239 mupirocin (Bactroban) 2 % ointment 1 Application, 1 Application, Nasal, BID, Clara Mayes DO,1 Application at 07/30/24 0921 naloxone (Narcan) injection 0.4 mg, 0.4 mg, IntraVENous, q5 min PRN, Colin Peoples MD norepinephrine (Levophed) infusion 16 mg in 0.9 % sodium chloride 250 mL (Lin-Yasabp-Zrufd) (premix), 2-100 mcg/min, IntraVENous, Continuous, Simone Momin DO, Stopped at 07/30/24 0944 ondansetron ODT (Zofran-ODT) disintegrating tablet 4 mg, 4 mg, Oral, q8h PRN OR ondansetron (Zofran) injection 4 mg, 4 mg, IntraVENous, q6h PRN, Clara Mayes DO pantoprazole (ProtoNix) 40 mg in sodium chloride (PF) 0.9 % 10 mL injection, 40 mg, IntraVENous, BID, Clara Mayes DO, 40 mg at 07/30/24 0557 polyethylene glycol (PEG) 3350 (Miralax) packet 17 g, 17 g, Oral, Daily PRN, Clara Mayes DO PrismaSol BGK 4/2.5 CRRT solution, 750 mL/hr, CRRT, Continuous, Karyn Jones MD, Last Rate: 750 mL/hr at 07/30/24 0748, 750 mL/hr at 07/30/24 0748 PrismaSol BGK 4/2.5 CRRT solution, 750 mL/hr, CRRT, Continuous, Karyn Jones MD, Last Rate: 750 mL/hr at 07/30/24 0748, 750 mL/hr at 07/30/24 0748 PrismaSol BGK 4/2.5 CRRT solution, 750 mL/hr, CRRT, Continuous, Karyn Jones MD, Last Rate: 750 mL/hr at 07/30/24 0747, 750 mL/hr at 07/30/24 0747 [COMPLETED] remdesivir (Veklury) 200 mg in sodium chloride 0.9 % 250 mL IVPB, 200 mg, IntraVENous, Once, Stopped at 07/27/24 0159 FOLLOWED BY remdesivir (Veklury) 100 mg in sodium chloride 0.9 % 250 mL IVPB, 100 mg, IntraVENous, q24h, Kena Heath DO, Stopped at 07/29/24 1837 sodium chloride 0.9 % bolus 30 mL, 30 mL, IntraVENous, PRN, Kena Heath DO sodium chloride 0.9 % infusion, 75 mL/hr, IntraVENous, PRN, Clara Mayes DO Continuous Infusions: dexmedeTOMIDine, 0.1-1.5 mcg/kg/hr, Last Rate: 0.4 mcg/kg/hr (07/30/24 1000) fentaNYL, 25-200 mcg/hr, Last Rate: 80 mcg/hr (07/29/242206) norepinephrine, 2-100 mcg/min, Last Rate: Stopped (07/30/24943) PrismaSol BGK 4/2.5, 750 mL/hr, Last Rate: 750 mL/hr (07/30/24747) PrismaSol BGK 4/2.5, 750 mL/hr, Last Rate: 750 mL/hr (07/30/24747) PrismaSol BGK 4/2.5, 750 mL/hr, Last Rate: 750 mL/hr (07/30/24746) Vitals: Patient Vitals for the past 8 hrs: BP Temp Temp src Pulse Resp SpO2 07/30/24 1000 -- -- -- 64 16 100 % 07/30/24944 -- -- -- 63 16 100 % 07/30/24929 -- -- -- 64 16 100 % 07/30/24914 -- -- -- 62 16 100 % 07/30/24899 -- -- -- 65 16 100 % 07/30/2445 -- -- -- 63 16 100 % 07/30/24829 -- -- -- 63 16 100 % 07/30/2415 -- -- -- 63 16 100 % 07/30/24799 145/54 36.3 C (97.3 F) Temporal 65 16 100 % 07/30/24744 -- -- -- 68 16 100 % 07/30/24729 -- -- -- 66 16 100 % 07/30/2415 -- -- -- 65 16 100 % 07/30/24699 -- -- -- 64 16 100 % 07/30/2445 -- -- -- 64 16 100 % 07/30/2430 -- -- -- 65 16 100 % 07/30/2415 -- -- -- 64 16 100 % 07/30/24599 -- -- -- 65 16 100 % 07/30/2445 -- -- -- 65 16 100 % 07/30/2430 -- -- -- 64 16 100 % 07/30/24 0515 -- -- -- 64 16 100 % 07/30/24 0500 -- -- -- 65 16 100 % 07/30/24 0445 -- -- -- 64 16 100 % 07/30/24 0430 -- -- -- 65 16 100 % 07/30/24 0415 -- -- -- 65 16 100 % 07/30/24 0400 -- 36.3 C (97.3 F) Temporal 65 16 100 % 07/30/24 0345 -- -- -- 66 16 100 % 07/30/24 0330 -- -- -- 65 16 100 % 07/30/24 0315 -- -- -- 65 16 100 % 07/30/24 0300 -- -- -- 65 16 100 % 07/30/24 0245 -- -- -- 65 16 100 % I/O last 3 completed shifts: In: 3870.8 (62.4 mL/kg) [I.V.:1645.8 (26.5 mL/kg); NG/GT:1675; IV Piggyback:550] Out: 2978 (48 mL/kg) Weight: 62 kg Physical Examination: General: Intubated and sedated HEENT: Normocephalic and atraumatic. Cardiac: Regular rate and rhythm Pulm: Clear to ausculation bilaterally. GI/: Nondistended, nontender. Ext: No edema. Skin: No rashes or lesions. Neuro: Intubated and sedated Arouses to voice stim Follows commands PERRL, EOMI, BTT, face symmetric, +gag, +cough Antigravity in extremities Results: Recent Results (from the past 24 hour(s)) Renal function panel Collection Time: 07/29/24 11:15 AM Result Value Ref Range SODIUM 131 (L) 135 - 145 mmol/L POTASSIUM 4.9 3.5 - 5.1 mmol/L CHLORIDE 104 98 - 107 mmol/L CARBON DIOXIDE 26 22 - 30 mmol/L ANION GAP 2 (L) 3 - 13 mmol/L GLUCOSE 145 (H) 70 - 100 mg/dL UREA NITROGEN 35 (H) 7 - 17 mg/dL CREATININE 1.59 (H) 0.52 - 1.04 mg/dL eGFR 36.1 (L) >60.0 mL/min/1.73m*2 CALCIUM 7.6 (L) 8.4 - 10.4 mg/dL ALBUMIN 1.9 (L) 3.5 - 5.0 g/dL PHOSPHORUS 3.7 2.5 - 4.5 mg/dL Calcium, ionized Collection Time: 07/29/24 11:15 AM Result Value Ref Range Calcium, Ion 4.30 4.30 - 5.20 mg/dL PH, IONIZED CALCIUM 7.44 7.31 - 7.46 CK Collection Time: 07/29/24 11:15 AM Result Value Ref Range CK 564 (H) 30 - 170 U/L Blood Gas, Arterial Collection Time: 07/29/24 2:08 PM Result Value Ref Range pH, Arterial 7.439 7.350 - 7.450 pCO2, Arterial 37.9 >35.0 - <45.0 mm Hg pO2, Arterial 96.3 80.0 - 100.0 mm Hg HCO3, Arterial 25.1 (H) 21.0 - 25.0 mmol/L O2 Sat, Arterial 97.1 95.0 - 100.0 % Base Excess, Arterial 0.9 -3.0 - 3.0 mmol/L CO2 Total 26.3 23.0 - 27.0 mmol/L Hgb, blood gas 8.3 Screen only g/dl Source Of Oxygen 30% Oxygen Renal function panel Collection Time: 07/29/24 5:36 PM Result Value Ref Range SODIUM 133 (L) 135 - 145 mmol/L POTASSIUM 5.0 3.5 - 5.1 mmol/L CHLORIDE 106 98 - 107 mmol/L CARBON DIOXIDE 26 22 - 30 mmol/L ANION GAP 2 (L) 3 - 13 mmol/L GLUCOSE 33 (LL) 70 - 100 mg/dL UREA NITROGEN 41 (H) 7 - 17 mg/dL CREATININE 1.94 (H) 0.52 - 1.04 mg/dL eGFR 28.5 (L) >60.0 mL/min/1.73m*2 CALCIUM 8.6 8.4 - 10.4 mg/dL ALBUMIN 2.0 (L) 3.5 - 5.0 g/dL PHOSPHORUS 4.4 2.5 - 4.5 mg/dL Calcium, ionized Collection Time: 07/29/24 5:36 PM Result Value Ref Range Calcium, Ion 4.70 4.30 - 5.20 mg/dL PH, IONIZED CALCIUM 7.41 7.31 - 7.46 POCT glucose meter Collection Time: 07/29/24 6:44 PM Result Value Ref Range Glucose <50 (L) 70 - 100 mg/dL POCT glucose meter Collection Time: 07/29/24 7:00 PM Result Value Ref Range Glucose 83 70 - 100 mg/dL POCT glucose meter Collection Time: 07/29/24 8:14 PM Result Value Ref Range Glucose <50 (L) 70 - 100 mg/dL Glucose, random Collection Time: 07/29/24 8:21 PM Result Value Ref Range GLUCOSE 163 (H) 70 - 100 mg/dL POCT glucose meter Collection Time: 07/29/24 8:22 PM Result Value Ref Range Glucose 177 (H) 70 - 100 mg/dL Renal function panel Collection Time: 07/30/24 12:28 AM Result Value Ref Range SODIUM 132 (L) 135 - 145 mmol/L POTASSIUM 5.3 (H) 3.5 - 5.1 mmol/L CHLORIDE 106 98 - 107 mmol/L CARBON DIOXIDE 24 22 - 30 mmol/L ANION GAP 1 (L) 3 - 13 mmol/L GLUCOSE 147 (H) 70 - 100 mg/dL UREA NITROGEN 32 (H) 7 - 17 mg/dL CREATININE 1.54 (H) 0.52 - 1.04 mg/dL eGFR 37.5 (L) >60.0 mL/min/1.73m*2 CALCIUM 7.6 (L) 8.4 - 10.4 mg/dL ALBUMIN 2.0 (L) 3.5 - 5.0 g/dL PHOSPHORUS 4.2 2.5 - 4.5 mg/dL Calcium, ionized Collection Time: 07/30/24 12:28 AM Result Value Ref Range Calcium, Ion 4.30 4.30 - 5.20 mg/dL PH, IONIZED CALCIUM 7.37 7.31 - 7.46 POCT glucose meter Collection Time: 07/30/24 12:28 AM Result Value Ref Range Glucose 157 (H) 70 - 100 mg/dL Blood Gas, Arterial Collection Time: 07/30/24 2:12 AM Result Value Ref Range pH, Arterial 7.370 7.350 - 7.450 pCO2, Arterial 46.3 (H) >35.0 - <45.0 mm Hg pO2, Arterial 114.1 (H) 80.0 - 100.0 mm Hg HCO3, Arterial 26.2 (H) 21.0 - 25.0 mmol/L O2 Sat, Arterial 97.2 95.0 - 100.0 % Base Excess, Arterial 0.7 -3.0 - 3.0 mmol/L CO2 Total 27.6 (H) 23.0 - 27.0 mmol/L Hgb, blood gas 7.9 Screen only g/dl Source Of Oxygen Vent CBC auto differential Collection Time: 07/30/24 5:57 AM Result Value Ref Range Auto WBC 13.6 (H) 3.6 - 10.7 10*3/uL RBC 2.55 (L) 3.80 - 5.20 10*6/uL Hemoglobin 7.3 (L) 11.7 - 16.0 g/dL Hematocrit 23.0 (L) 35.0 - 47.0 % MCV 90.2 77.0 - 99.0 fL MCH 28.6 26.0 - 34.0 pg MCHC 31.7 30.5 - 36.0 % RDW 15.5 (H) 11.5 - 15.0 % Platelets 161 140 - 440 10*3/uL MPV 10.5 9.0 - 12.7 fL nRBC 0.0 0.0 - 2.0 /100 WBCs Neutrophils Relative 90.9 (H) 38.0 - 82.0 % Lymphocytes Relative 4.3 (L) 15.0 - 45.0 % Monocytes Relative 4.4 (L) 5.0 - 13.0 % Eosinophils Relative 0.0 0.0 - 6.0 % Basophils Relative 0.0 0.0 - 2.0 % Immature Grans % 0.4 0.0 - 2.0 % Neutrophils Absolute 12.3 (H) 1.8 - 7.5 10*3/uL Lymphocytes Absolute 0.6 (L) 1.0 - 4.3 10*3/uL Monocytes Absolute 0.6 0.0 - 0.9 10*3/uL Eosinophils Absolute 0.0 0.0 - 0.5 10*3/uL Basophils Absolute 0.0 0.0 - 0.2 10*3/uL Immature Grans Absolute 0.1 (H) <0.1 10*3/uL Renal function panel Collection Time: 07/30/24 5:57 AM Result Value Ref Range SODIUM 132 (L) 135 - 145 mmol/L POTASSIUM 5.4 (H) 3.5 - 5.1 mmol/L CHLORIDE 105 98 - 107 mmol/L CARBON DIOXIDE 26 22 - 30 mmol/L ANION GAP 1 (L) 3 - 13 mmol/L GLUCOSE 149 (H) 70 - 100 mg/dL UREA NITROGEN 31 (H) 7 - 17 mg/dL CREATININE 1.37 (H) 0.52 - 1.04 mg/dL eGFR 43.2 (L) >60.0 mL/min/1.73m*2 CALCIUM 7.3 (L) 8.4 - 10.4 mg/dL ALBUMIN 2.1 (L) 3.5 - 5.0 g/dL PHOSPHORUS 4.1 2.5 - 4.5 mg/dL Calcium, ionized Collection Time: 07/30/24 5:57 AM Result Value Ref Range Calcium, Ion 4.10 (L) 4.30 - 5.20 mg/dL PH, IONIZED CALCIUM 7.42 7.31 - 7.46 POCT glucose meter Collection Time: 07/30/24 6:01 AM Result Value Ref Range Glucose 155 (H) 70 - 100 mg/dL Blood Gas, Arterial Collection Time: 07/30/24 9:36 AM Result Value Ref Range pH, Arterial 7.399 7.350 - 7.450 pCO2, Arterial 44.6 >35.0 - <45.0 mm Hg pO2, Arterial 113.8 (H) 80.0 - 100.0 mm Hg HCO3, Arterial 26.9 (H) 21.0 - 25.0 mmol/L O2 Sat, Arterial 97.9 95.0 - 100.0 % Base Excess, Arterial 1.9 -3.0 - 3.0 mmol/L CO2 Total 28.3 (H) 23.0 - 27.0 mmol/L Hgb, blood gas 7.7 Screen only g/dl Source Of Oxygen 30% Oxygen Since admission: Recent Labs 07/29/24 1115 CKTOTAL 564* Recent Labs 07/28/24 1257 ALKPHOS 78 ALT 23 AST 44 BILITOT 0.5 @[facility]) ABGs:)No results for input(s): PH, PO2, PCO2, HCO3, O2SAT in the last 72 hours. No lab exists for component: BE Cultures: Blood culture #1: No lab exists for component: BC Blood culture #2: No lab exists for component: BLOODCULT2 Antiepileptic levels: No results for input(s): PHENYTOIN, PHENOBARB, VALPROATE in the last 72 hours. No lab exists for component: CARBTOT, LAMOTRIG, KEPPRA Coagulation: No results for input(s): INR in the last 72 hours. CSF: No results for input(s): CULTURE, PROTEIN in the last 72 hours. No lab exists for component: CHARCSF, CELL COUNT, GRAM STAIN Lipids: No results for input(s): CHOL, TRIG, HDL, AMYLASE, LIPASE in the last 72 hours. No lab exists for component: LDLCHOLESTEROL HgA1c: No lab exists for component: LABA1C Radiology: cEEG Read pending Assessment and Plan: Sandy Deng is a 63 yo F with a history of COPD, DM, HLD, CKD who presented to OSH altered andis respiratory distress with shaking movements also found to have trace R temporal SDH. No intervention for SDH and will monitor. The shaking movements witnessed are not concerning for seizure clinically as they are irregular asynchronous myoclonic movements but she is profoundly encephalopathic sowill rule out nonconvulsive status. In the setting of COVID, renal failure on CRRT, and septic shock now all improving suspect metabolic encephalopathy. # trace R SDH: Stable no follow up needed # COVID # septic shock # renal failure # DM # HLD - OK for DVT ppx - Hold AED for now - Exam improving in tandem with improvement of medical illness consistent with toxic/metabolic encephalopathy. NCCU to sign off please call back if any further questions or concerns. Torito Mahajan MD Neurocritical Care I spent a total of 30 minutes in my independent critical care time for this neurocritically ill patient who is at high risk for both clinical and neurological decline due to further brain injury, which can occur unpredictably and rapidly cause multi-organ dysfunction. In that time I reviewed the chart including MAR, labs, neuroimaging, other imaging studies and discussed my diagnostic impression and patient's plan of care with my TONJA/resident/fellow/student, the consulting team and patient's family members/surrogate decision makers (in cases where the patient is incapacitated and unable to participate in their own care). * Jennifer Saldaña - 07/30/2024 7:29 AM EDT Images from the original note were not included. PHYSICAL THERAPY [facility] Name/MRN: Sandy Deng ([id number]) Date: 07/30/2024 Screen Note. Pt remains intubated and sedated with orders for strict bed rest. Will continue to follow and re-attempt as able. Jennifer Saldaña, SPT * Joycelyn Diane, DO - 07/30/2024 5:21 AM EDT ICU Progress Note Name: Sandy Deng : 1960(63 y.o.) Date: 07/30/24 Team: MICU Attending: Dr. Jones Subjective: Hospital Summary: 63 year old female with a PMHx of COPD (3L O2 baseline), DM, CKD 4, HTN, CAD, [place] (PCI with stents in 2017). at bedside. Pt was admitted to [facility] due to confusion and hallucinations. Pt has had episodes of staring off into space per family. Was found to have a subdural hematoma. She reportedly had a fall 1 month ago from bed. states she hit her head on the nightstand. She is on Plavix and ASA for a stent placed 7 years ago. Pt tested positive for COVID on 07/24. Today at [facility] ICU she had worsening hypoxia and was placed on NIV but failed. Was ultimately intubated. Noted to be hypotensive and started on levophed. Pt was transferred to [facility] for higher level of care. On arrival she was noted to have reduced urine output. Pt reportedly with CKD 4 and familystates has been told in the past she may need HD in the future. Pt has a hx of intention tremor. 07/27: Overnight, patient had dialysis catheter placed and was started on CRRT. This morning, vasopressor support is being weaned. Initial infectious workup returned with CTX-M Pseudomonas and S aureus identified on pneumonia PCR. The patient was seen and examined at bedside, is intubated sedated and mechanically ventilated and in no apparent distress. Coming down on pressor needs. Optimizing antibiotic regimen. Started insulin gtt dt history of T1DM on insulin pump. Per RN, when sedation lightened, the patient made some purposeless movements, but did not respond to requests. 07/29: Notably arrhythmic on tele (trigeminy/bigeminy), CMP ordered - Ca low. Discussed with nephro - increased lab frequency: BMP, Mg, Phos, and iCal Q6H to allow for aggressive repletion of electrolyte derangements. Interval Events: S/P Tunneled HD catheter by IR 07/29. Tolerated procedure well. Was hypoglycemic overnight at <50. Received dextrose - now back up to 150s. CRRT running smoothly. Patient more alert on exam but not able to follow commands. No agitation. Encouraged nursing to continue to wean sedation as tolerated. Vitals: VSS, afebrile Drips/Continuous: Fentanyl 80, Levo 2, Propofol 25, CRRT Lines/Drains: CVC triple lumen RIJ, HD Cath double lumen right tunneled catheter subclav Vent/O2: RR 16, Vt 470, FiO2 30%, PEEP 8 - pH 7.37, pCO2 46.3, pO2 114.1 Diet: TF Glucerna 1.5 Parker goat rate 35 ml/hr, flushes 35cc Q4H Scheduled Meds:dexAMETHasone, 6 mg, IntraVENous, q24h Glycopyrrolate-Formoterol, 2 puff, Inhalation, BID insulin glargine, 5 Units, SubCUTAneous, Nightly insulin regular, 0-18 Units, SubCUTAneous, q6h ipratropium-albuterol, 3 mL, Nebulization, BID meropenem, 1,000 mg, IntraVENous, q12h mupirocin, 1 Application, Nasal, BID pantoprazole (ProtoNix) 40 mg in sodium chloride (PF) 0.9 % 10 mL injection, 40 mg, IntraVENous, BID remdesivir (Veklury) 100 mg in sodium chloride 0.9 % 250 mL IVPB, 100 mg, IntraVENous, q24h Continuous Infusions:fentaNYL, 25-200 mcg/hr, Last Rate: 80 mcg/hr (07/29/242206) norepinephrine, 2-100 mcg/min, Last Rate: 2 mcg/min (07/29/241813) PrismaSol BGK 4/2.5, 750 mL/hr, Last Rate: 750 mL/hr (07/30/2436) PrismaSol BGK 4/2.5, 750 mL/hr, Last Rate: 750 mL/hr (07/30/24 0037) PrismaSol BGK 4/2.5, 750 mL/hr, Last Rate: 750 mL/hr (07/30/24 0036) propofol, 5-50 mcg/kg/min, Last Rate: 25 mcg/kg/min (07/29/24 2300) Objective: Last Vitals: BP MAP (!) 71/31 (07/29/24 1800) 41 (07/29/24 1800) Arterial BP MAP 126/49 (07/30/24 0500) 70 mmHg (07/30/24 0500) Temp 36.3 C (97.3 F) (07/30/24 0400) Pulse 65 (07/30/24 0500) Resp 16 (07/30/24 0500) SpO2 100 % (07/30/24 0500) Weight 62 kg (136 lb 11 oz) (07/29/24 050) BMI Body mass index is 22.06 kg/m . I/O: 07/29 0700 - 07/30 0659 In: 2390.3 [I.V.:775.3] Out: 1675 Ventilator: Resp Rate (Set): 16 Vt (Set, mL): 470 mL FiO2 (%): 30 % PEEP/CPAP (cm H2O): 8 cm H20 Inspiratory Time (sec): 1 sec Oxygen Delivery: Invasive Lines / Tubes / Drains: CVC Triple Lumen 07/26/24 Right Internal jugular (Active) Number of days: 1 Peripheral IV Anterior;Right Forearm (Active) Number of days: Peripheral IV Right Antecubital (Active) Number of days: Urethral Catheter Straight-tip (Active) Number of days: 0 Hi-Lo Evac ETT (Active) Number of days: 2 Feeding Tube (Active) Number of days: 1 Hemodialysis Cath Double Lumen 07/27/24 Left Non-tunneled catheter Internal jugular (Active) Number of days: 1 Central Line Indication: Inadequate peripheral access despite documented ultrasound attempts AND unable to place extended dwell PIV Johnson Indications: Hourly I&Os (Critical Care ONLY) Restraints: Restraints Non-Violent Or Non-Self Destructive Jul 27, 2024 3:35 Am Edt Restraint order already placed. Order is valid for duration of episode. Wounds: Constitutional: General Appearance []WDWN [x]Obese []Cachectic []Thin []Ill Eyes: Inspection of Pupils/Irises Pupils round and react: [x]Yes []No Sclera: []Icteric [x]Non-Icteric Inspection of Conjunctiva/Lids Conjunctiva: []Injected []Non-Injected Lids: [x]Intact []Lesion Present ENT/Mouth: External Inspection of ears/nose [] Normal [] Scar/Lesion/Mass Inspection of teeth/lips/gums Dentition: [][place] Teeth []Dentures Lips/Gums: [x]Intact []Lesion Present Mucosa: [x][place]inson [x]Moist []Dry Neck: External Appearance Overall Appearance: [x]Normal []Lesion/Mass/Crepitus Present Trachea midline: [x]Yes []No Thyroid [x]Normal []Enlarged []Tender []Mass []Absent Respiratory: Respiratory effort []Labored []Non-Labored [x] Mechanically-Ventilated Auscultation []Clear [x]Crackles []Wheezes [x]Rhonchi Cardiovascular: Auscultation Rate: [x]Regular []Irregular []Tachycardia []Bradycardia Rhythm: []Regular [x]Irregular Murmur: []Present [x]Absent Extremities Peripheral Edema: []Present [x]Absent Varicosities: []Present [x]Absent Gastrointestinal: Abdomen Palpation: [x]Soft []Firm []Tender [x]Non-Tender []Distended [x]Non-distended Mass: []Present []Absent Bowel Sounds: [x]Present []Absent Hernia: []Present []Absent Liver/Spleen: []Hepatosplenomegaly []Organomegaly Absent Musculoskeletal: Inspection of Digits and Nails Cyanosis: []Present [x]Absent Clubbing: []Present [x]Absent Ischemia: []Present [x]Absent Infection: []Present [x]Absent Extremities ROCHE Equally: Except ([]RUE []RLE []LUE []LLE) Strength/Tone: Intact and Normal ([]RUE []RLE []LUE []LLE) Skin: Inspection [x]Normal []Rash []Lesion []Ulcer -Bruises present from IV sticks Palpation [x]Warm []Cool [x]Dry []Clammy []Nodules []Induration []Skin-tightening Cap-Refill: [x] <3 sec [] >3 seconds (delayed) Neurologic: GCS Eye: 2 - to pressure and voice (not voice only) GCS Motor: 5 - localizing GCS VERBAL: 1 - No response Total GCS: 8 [] Sensation grossly intact Psych: Mental Status Alert: []Yes [x] No Oriented: [x]x0 []X1 []X2 []x3 Mood/Affect []Normal []Flat []Agitated []Depressed []Anxious [x]Calm [x]Sedated []NAD - Agitated upon awakening [facility] within last 24 hours- BMP: Recent Labs 07/27/24 2114 07/28/24 0409 07/28/24125607/28/24180707/29/24111407/29/24173507/30/24 0028 NA 131* 131* 130* < > 131* 133* 132* K 3.6 4.5 4.5 < > 4.9 5.0 5.3* CL 102 104 102 < > 104 106 106 CO2 24 23 24 < > 26 26 24 BUN 41* 34* 31* < > 35* 41* 32* CREATININE 2.18* 1.80* 1.50* < > 1.59* 1.94* 1.54* CALCIUM 7.3* 7.4* 7.3* < > 7.6* 8.6 7.6* MG 1.9 2.2 2.7* -- -- -- -- PHOS -- 3.6 3.5 < > 3.7 4.4 4.2 < > = values in this interval not displayed. LFTs: Recent Labs 07/27/24 0530 07/27/24 1427 07/28/24 1257 07/28/24180707/29/24 11107/29/24173507/30/24 0028 AST 28 -- 44 -- -- -- -- ALT 19 -- 23 -- -- -- -- PROT 4.9* -- 4.6* -- -- -- -- ALBUMIN 2.4* < > 2.2* < > 1.9* 2.0* 2.0* BILITOT 0.3 -- 0.5 -- -- -- -- ALKPHOS 66 -- 78 -- -- -- -- < > = values in this interval not displayed. Glucose: Recent Labs 07/28/24 1257 07/28/24 1514 07/28/24 1808 07/28/24200607/28/24 2346 07/28/24 2349 07/29/24 0557 07/29/24 0601 07/29/24 1115 07/29/24 1736 07/29/24 1844 07/29/24 1900 07/29/24201307/29/24202007/29/24202107/30/24 0028 GLUCOSE 149* -- 139* -- -- 123* 206* -- 145* 33* -- -- -- 163* -- 147* POCGLU -- < > -- 106* 130* -- -- 217* -- -- <50* 83 <50* -- 177* 157* < > = values in this interval not displayed. Procal: No results for input(s): PROCAL in the last 72 hours. CBC: Recent Labs 07/27/24 0530 07/27/24 0652 07/28/24 0409 07/29/24 0557 07/29/24 0558 07/29/24 1006 07/29/24 1408 07/30/24 021 WBC 14.5* -- 11.5* 6.5 -- -- -- -- HGB 8.8* < > 9.2 8.8* 7.7* < > 8.0 8.3 7.9 HCT 27.2* -- 25.8* 23.1* -- -- -- -- PLT 186 -- 160 141 -- -- -- -- MCV 88.0 -- 84.6 85.9 -- -- -- -- RDW 15.3* -- 15.0 15.2* -- -- -- -- < > = values in this interval not displayed. ABGs: Recent Labs 07/29/24 1006 07/29/24 1408 07/30/24 0212 PHART 7.506* 7.439 7.370 XYU2GVR 34.5* 37.9 46.3* PO2ART 88.9 96.3 114.1* SFF5OFU 26.7* 25.1* 26.2* [id number] 30% Oxygen 30% Oxygen Vent Lactic Acid: No results for input(s): LACTATE in the last 72 hours. INR: No results for input(s): INR in the last 72 hours. Cardiac Injury Profile: Recent Labs 07/27/24 0530 07/29/24 1115 CKTOTAL 865* 564* Labs in Last 3 months: Lab Results Component Value Date TSH 3.472 07/26/2024 Microbiology- Urine Cx: No results found for: URINECX Blood Cx: No results found for: BLOODCX Sputum Cx: Lab Results Component Value Date RESPCULT Rare respiratory keven present. 07/27/2024 RESPCULT Few Staphylococcus aureus (A) 07/27/2024 Gram Stain: Lab Results Component Value Date LABGRAM (A) 07/27/2024 Many Polymorphonuclear leukocytes per low power field LABGRAM Few Epithelial cells per low power field (A) 07/27/2024 LABGRAM Moderate Gram positive cocci (A) 07/27/2024 PNA PCR: Lab Results Component Value Date HUMANMETAPNE Not Detected 07/27/2024 COVID19: No results found for: COVID19 Legionella Ag: Lab Results Component Value Date LEGIONELLAPN Not Detected 07/27/2024 Strep Ag: No results for input(s): STREPPNEUMO in the last 72 hours. Imaging- CXR 07/27 IMPRESSION: 1. Probable small layering right basilar pleural effusion. 2. COPD changes. 3. Lines and support devices as above. 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 Rec MRI if she is not at baseline cognition after extubation Acute on Chronic Hypoxemic, Hypercapnic Resp Failure Septic Shock 2/2 Polymicrobial PNA COVID pos at OSH, micro testing pos for non-COVID coronavirus on admission - Cont vasopressors MAP goal >65 - Per ID stewardship, tx with mary ann for CTX-M pseudomonas coverage - Start Date: 07/27 - End Date: 08/02 - Cont Decadron x10d. End-date: 08/04 - Cont Remdesivir x5d. End-date: 07/31 - After RR decreased from 20 to 16 on vent, pCO2 increased from 37 to 46. Likely chronic CO2 retainer. May be closer to her baseline - Continue to wean sedation as tolerated - goal for extubation UMA on CKD Stage 4, now requiring CRRT Hyponatremia Hyperkalemia New Onset Arrhythmia (Trigeminy/Bigeminy) likely 2/2 electrolyte derangements - Nephro following, appreciate recs - Suspect UMA likely started as prerenal but advanced to ATN 2/2 prolonged shock - Increased BMP, Mg, Phos, and iCal to Q6H for aggressive electrolyte replacement - Access lost 07/29 - IR placed tunneled HD catheter - Cont CRRT - now running smoothly - Initial Na 125, now 132 - Minimal urine output (unclear how much urine she makes at baseline with CKD) GI Prophylaxis: Pantoprazole IV DVT Prophylaxis: SCDs Disposition: Remain in ICU Status Critical Care Time: Total critical care time caring for this patient with life threatening, unstable organ failure, including direct patient contact, management of life support systems, review of data including imaging and labs, discussions with other team members and physicians, excluding procedures. Associated attestation - Kena Heath DO - 07/30/2024 10:25 AM EDT I have personally performed a [id number] diagnostic evaluation on this patient on date of service07/30/2024. History, labs, imaging studies, and electronic medical record have been reviewed by me. This note documented by the [x]warehouse incentive selector [][email or web address] reflects my history, exam, and medical decision making. I have reviewed and agree with the care plan. Changes were made in the orders as necessary. ROS documentation was reviewed and negative unless otherwise stated in HPI. Additional pertinent interval history, ROS, and physical exam findings: Ms Deng seen and evaluated at bedside. Hypoglycemia overnight requiring dose of D50. Remains intubated on minimal vent support. Continues to require low dose levo. Awakens to verbal stimuli on my exam, but does not interact, follow commands. Assessment: Septic shock Acute hypoxic, hypercapnic respiratory failure - intubated 07/26 COVID 19 positive, outside hospital Pneumonia d/t MSSA, ESBL Pseudomonas UMA on CKD 4 - started on CRRT 07/26 Small right subdural hematoma, stable Diabetes mellitus type 1 with hyperglycemia Normocytic anemia, unclear baseline COPD Hyperlipidemia Plan: -Maintain mechanical ventilation, titrate to ABG -Vasopressor support as needed to maintain MAP >65 -Complete course remdesivir, decadron -Complete course of meropenem -Appreciate nephrology recommendations regarding CRRT -Consult neuroCC, appreciate recommendations -Neurosurgery evaluated patient, no acute interventions. Plan to follow up within 2 weeks of discharge for repeat imaging. Hold Plavix until that time. -Insulin to maintain serum glucose 140-180 Total critical care time for this patient with life-threatening unstable organ failure, including direct patient contact, management of life support systems, review of data including imaging and labs, and discussions with other team members and physicians at least 40 minutes so far today, excludingprocedures. * Marleny Alva RCP - 07/29/2024 4:18 PM EDT 07/29/24 1249 Wean Screen Safety Screen Spontaneous Breathing Trial (SBT - RT) (sedation not weaned or turned off) No SBT done. * Joycelyn Diane DO - 07/29/2024 2:38 PM EDT Family Communication Number Called: NA Name of Designated Family Fire Control Assistant: Jose Deng and pt's sister Relationship: spouse Family Fire Control Assistant Updated on the Following: Updated on the issues with CRRT, the importance of hemodialysis, the consult to IR for tunneled catheter placement, the potential for future need for dialysis, her CXR findings, her need for supplemental oxygen, her most recent ABG, her vent settings,her BP, and the plan moving forward to wean off of sedation in order to increase chance of passing SBT. Answered all questions. Both individuals expressed understanding. * Karyn Jones MD - 07/29/2024 2:18 PM EDT Images from the original note were not included. Initial Nephrology Consult Note Patient: Sandy Deng Room number: T2-/T2 A Date of Admit: 07/26/2024 LOS: 3 days Referring physician: Kena Heath DO Outpatient X Ray Inspector: Christy Huerta Reason for Consult: Asked to see/evaluate by primary service for opinion regarding: UMA on CKD Assessment/Plan: 1. UMA, anuric - Cr has been 2.4-2.8, last (04/26) Cr 2.4 eGFR 20 - On admit, (07/26) Cr 4.56, lowest SBP 90s, got 1 L NS bolus, on levo gtt (vasopressin now dc). CRRT initiated via L internal jugular non-tunneled dialysis cath 07/26, running even - suspect started as prerenal -> ATN (prolonged prerenal/shock). No obstruction on renal us (hasB small/strophic kidneys) - unable to send urine studies (anuric); CK 865 (can re-check), C3 56/C4 10 sl low ? Infectious GN component (tx if mgmt of infection) - vascath malfunction: WBC nL, no evidence of bacteremia; ordered for TDC placement c/o IR - once TDC in place, re-start CRRT run even (hemodynamic instability) - monitor K, phos, iCa: expect to drop with CRRT, replace accordingly 2. CKD 4 - follows with Dr Christy Huerta ([place]). - On review of available labs, Cr has been 2.4-2.8, last (04/26) Cr 2.4 eGFR 20, 24 hr csobrdl=1518 mg. - Home med includes losartan 25 mg daily 3. Electrolytes - Hyponatremia, Na was 125, improving - Hyperkalemia - improved with CRRT; on 4k bags 4. Acid-base - bicarb now 26 - lactate 0.9 - last pH 7.4, HCO3 25, pCO2 38 - managed with CRRT 5. BMD; Secondary HPT - hypocalcemia: iCa 4.3. team repleting. Monitor iCa q6-8 alexandra if still with arrhythmia issues; and repeat if low (expect to drop with CRRT) - hyperphosphatemia, improving with CRRT 6. Anemia - plts normal - defer pRBC needs to primary 7. Acute resp failure/COVID - intubated, per CCM - remdesivir/steroids/meropenem 8. Altered MS R SDH - Neurocrit consulted - cEEG no evidence of seizures per Neuro Will follow along as directed. Thank you for allowing us to participate in the care of this patient. HPI: Sandy Deng is a 63 y.o. female with a past medical history of: COPD (3L O2 baseline), DM type 1, CKD 4, HTN, CAD (PCI with stents in 2017). who was admitted by,Ino Conte MD, for SDH (subdural hematoma) (HCC) [S06.5XAA]. Mrs. Deng is a 63 year old female with PMH of COPD (3L O2 baseline), DM type 1, CKD 4, HTN, CAD (PCI with stents in 2016). initially presenting with resp distress and delirium, Covid positive. She was eventually intubated. CT head showed a small right SDH. Consulted for UMA on CKD 4 - follows with Dr Christy Huerta ([facility]). On review of available labs, Cr has been 2.4-2.8, last (04/26) Cr 2.4 eGFR 20, 24 hr avjcfcb=8438 mg. Home med includes losartan 25 mg daily. On admit, (07/26) Cr 4.56, lowest SBP 90s, got 1 L NS bolus, on levo gtt (vasopressin nowdc). Oligoanuric. Was on bicarb gtt but then needed CRRT initiation for severe acidosis in setting of hemodynamic instability. cEEG overnight. No report of seizures. CRRT alarming overnight due to malfunctioning vascath. No UOdocumented. Continues to be on levo gtt, dose being tapered down. Contrast exposure: none Nephrotoxic drug exposure: no documented use of aminoglycosides or NSAIDs. Hypotensive episodes: none documented. Home medications/pre-hospital medications reviewed. Notable for: losartan 25 mg daily Medications: Scheduled Meds:calcium gluconate, 2,000 mg, IntraVENous, Once dexAMETHasone, 6 mg, IntraVENous, q24h Glycopyrrolate-Formoterol, 2 puff, Inhalation, BID insulin glargine, 5 Units, SubCUTAneous, Nightly insulin regular, 0-18 Units, SubCUTAneous, q6h ipratropium-albuterol, 3 mL, Nebulization, BID meropenem, 1,000 mg, IntraVENous, q12h mupirocin, 1 Application, Nasal, BID pantoprazole (ProtoNix) 40 mg in sodium chloride (PF) 0.9 % 10 mL injection, 40 mg, IntraVENous, BID remdesivir (Veklury) 100 mg in sodium chloride 0.9 % 250 mL IVPB, 100 mg, IntraVENous, q24h Continuous Infusions:fentaNYL, 25-200 mcg/hr, Last Rate: 80 mcg/hr (07/29/24 1121) norepinephrine, 2-100 mcg/min, Last Rate: 2.5 mcg/min (07/29/24 1405) PrismaSol BGK 4/2.5, 750 mL/hr, Last Rate: 750 mL/hr (07/29/24 0302) PrismaSol BGK 4/2.5, 750 mL/hr, Last Rate: 750 mL/hr (07/29/24 0301) PrismaSol BGK 4/2.5, 750 mL/hr, Last Rate: 750 mL/hr (07/29/24 0300) propofol, 5-50 mcg/kg/min, Last Rate: 25 mcg/kg/min (07/29/24 1120) Allergies: Not on File Review of Systems: Unable to perform ROS, pt intubated Physical Exam: Vitals: 07/29/24 1215 07/29/24 1230 07/29/24 1238 07/29/24 1345 BP: BP Location: Patient Position: Pulse: 75 70 69 66 Resp: 16 16 16 16 Temp: TempSrc: SpO2: 99% 100% 100% 100% Weight: Height: Today's weight: Weight: 62 kg (136 lb 11 oz) Admission weight: Weight: 48 kg (105 lb 13.1 oz) Wt Readings from Last 3 Encounters: 07/29/24 62 kg (136 lb 11 oz) Estimated body mass index is 22.06 kg/m as calculated from the following: Height as of this encounter: 1.676 m (5' 6). Weight as of this encounter: 62 kg (136 lb 11 oz). @IODETAILS@ Intake/Output Summary (Last 24 hours) at 07/29/2024 1438 Last data filed at 07/29/2024 1200 Gross per 24 hour Intake 2114.8 ml Output 1603 ml Net 511.8 ml [REMOVED] Urethral Catheter-Output (mL): 5 mL Urethral Catheter Nywqyook-rxo-Wdiqja (mL): 0 mL FIO2 needs: Patient Vitals for the past 1 hrs: FiO2 (%) 07/29/24 1345 30 % General Appearance no acute distress, intubated, sedated HEENT Neck anicteric sclera, moist mucus membranes, normal external ears/nares, no facial edema Supple neck, midline trachea without tracheal deviation, no palpable cervical or supraclavicular lymph nodes Chest symmetric, normal shape/expansion, no chest wall/sternal tenderness; L int jug temp dialysis cath Heart RRR, no audible pericardial rubs, no audible murmurs, no palpable LV heave. Lungs Fine rales, easy effort on vent Abdomen Skin soft without distension, normal bowel sounds, no grimacing on palpation no rash or subcutaneous nodules, warm and dry skin with good turgor Musculoskeletal no leg edema, normal hair distribution on legs johnson catheter present Neurologic no resting tremor, myoclonic movement less pronounced Psychiatric Unable to assess LABS: Recent Labs 07/27/24 0530 07/27/24 0652 07/28/24 0409 07/29/24 0557 07/29/24 0558 07/29/24 1006 07/29/24 1408 WBC 14.5* -- 11.5* 6.5 -- -- -- HGB 8.8* < > 9.2 8.8* 7.7* 8.2 8.0 8.3 HCT 27.2* -- 25.8* 23.1* -- -- -- MCV 88.0 -- 84.6 85.9 -- -- -- PLT 186 -- 160 141 -- -- -- < > = values in this interval not displayed. No results found for: IRON, TIBC, FERRITIN No results found for: [id number], FOLATE Recent Labs 07/27/24 0530 07/27/24 1427 07/27/24 2114 07/28/24 0409 07/28/24 1257 07/28/24 1808 07/28/24 2349 07/29/24 0557 07/29/24 1115 NA 130* < > 131* 131* 130* 131* 130* 131* 131* K 4.3 < > 3.6 4.5 4.5 4.2 4.6 5.2* 4.9 CL 101 < > 102 104 102 103 104 104 104 CO2 18* < > 24 BUN 66* < > 41* 34* 31* 30* 28* 28* 35* CREATININE 4.00* < > 2.18* 1.80* 1.50* 1.33* 1.26* 1.32* 1.59* GLUCOSE 254* < > 87 143* 149* 139* 123* 206* 145* CALCIUM 6.5* < > 7.3* 7.4* 7.3* 7.8* 7.4* 7.5* 7.6* MG 2.0 -- 1.9 2.2 2.7* -- -- -- -- PHOS 6.8* < > -- 3.6 3.5 2.7 2.4* 3.2 3.7 ANIONGAP 11 < > 6 4 4 3 0* 1* 2* < > = values in this interval not displayed. Lab Results Component Value Date CAION 4.30 07/29/2024 Lab Results Component Value Date CKTOTAL 865 (H) 07/27/2024 ALT 23 07/28/2024 AST 44 07/28/2024 No results for input(s): INR, PROTIME, PTT in the last 72 hours. No results for input(s): COLORU, CLARITYU, PH, PHUR, LABSPEC, GLUCOSEU, BLOODU, LEUKOCYTESUR, NITRITE, BILIRUBINUR, UROBILINOGEN, BACTERIA, AMORPHOUS, CASTS in the last 72hours. No lab exists for component: PROTEINUA, KEYTONESU, RBCUA, WBCUA, CRYSTAL Recent Labs 07/26/241957 NAUR 31 Diagnostic Studies: TTE: CXR: reviewed in PACS Personally reviewed MARS, labs, radiologic studies and notes. Karyn Jones MD Pager [phone] [facility] [phone] D/w ICU * Jamey Muro OT - 07/29/2024 11:27 AM EDT Images from the original note were not included. OCCUPATIONAL THERAPY [facility] Name/MRN: Sandy Deng ([id number]) Date: 07/29/2024 Pt remains on strict bed rest. Will continue to follow. Jamey Muro OT * Jennifer Saldaña - 07/29/2024 9:25 AM EDT Images from the original note were not included. PHYSICAL THERAPY [facility] Name/MRN: Sandy Deng ([id number]) Date: 07/29/2024 Hold Note. Pt remains intubated and sedated with strict bed rest orders per chart review. Pt CRRT issues this morning per chart review. Will continue to follow and re- attempt as able JEY Caldwell * Joycelyn Diane DO - 07/29/2024 6:11 AM EDT ICU Progress Note Name: Sandy Deng : 1960(63 y.o.) Date: 07/29/24 Team: MICU Attending: Dr. Jones Subjective: Hospital Summary: 63 year old female with a PMHx of COPD (3L O2 baseline), DM, CKD 4, HTN, CAD, [place] (PCI with stents in 2017). at bedside. Pt was admitted to [facility] due to confusion and hallucinations. Pt has had episodes of staring off into space per family. Was found to have a subdural hematoma. She reportedly had a fall 1 month ago from bed. states she hit her head on the nightstand. She is on Plavix and ASA for a stent placed 7 years ago. Pt tested positive for COVID on 07/24. Today at [facility] ICU she had worsening hypoxia and was placed on NIV but failed. Was ultimately intubated. Noted to be hypotensive and started on levophed. Pt was transferred to [facility] for higher level of care. On arrival she was noted to have reduced urine output. Pt reportedly with CKD 4 and familystates has been told in the past she may need HD in the future. Pt has a hx of intention tremor. 07/27: Overnight, patient had dialysis catheter placed and was started on CRRT. This morning, vasopressor support is being weaned. Initial infectious workup returned with CTX-M Pseudomonas and S aureus identified on pneumonia PCR. The patient was seen and examined at bedside, is intubated sedated and mechanically ventilated and in no apparent distress. Coming down on pressor needs. Optimizing antibiotic regimen. Started insulin gtt dt history of T1DM on insulin pump. Per RN, when sedation lightened, the patient made some purposeless movements, but did not respond to requests. Interval Events: Notably arrhythmic on tele (trigeminy/bigeminy), CMP ordered - Ca low. Discussed with nephro - increased lab frequency: BMP, Mg, Phos, and iCal Q6H to allow for aggressive repletion of electrolyte derangements. Consider decreasing RR due to pH of 7.5 on most recent ABG. Notably agitated and easily woken on current dose of fentanyl and prop. Vitals: VSS, afebrile Drips/Continuous: Fentanyl 125, Levo 2, Propofol 35, CRRT Lines/Drains: CVC triple lumen RIJ, hemodialysis cath double lumen LIJ Vent/O2: RR 20, Vt 470, FiO2 30%, PEEP 8 - pH 7.5, pCO2 32, pO2 110 Diet: TF Glucerna 1.5 Parker goat rate 40 ml/hr, flushes 35cc Q4H Scheduled Meds:calcium gluconate, 3,000 mg, IntraVENous, Once dexAMETHasone, 6 mg, IntraVENous, q24h Glycopyrrolate-Formoterol, 2 puff, Inhalation, BID insulin glargine, 5 Units, SubCUTAneous, Nightly insulin regular, 0-18 Units, SubCUTAneous, q6h ipratropium-albuterol, 3 mL, Nebulization, BID meropenem, 1,000 mg, IntraVENous, q12h mupirocin, 1 Application, Nasal, BID pantoprazole (ProtoNix) 40 mg in sodium chloride (PF) 0.9 % 10 mL injection, 40 mg, IntraVENous, BID remdesivir (Veklury) 100 mg in sodium chloride 0.9 % 250 mL IVPB, 100 mg, IntraVENous, q24h Continuous Infusions:fentaNYL, 25-200 mcg/hr, Last Rate: 125 mcg/hr (07/29/24723) norepinephrine, 2-100 mcg/min, Last Rate: 2 mcg/min (07/29/24635) PrismaSol BGK 4/2.5, 750 mL/hr, Last Rate: 750 mL/hr (07/29/24301) PrismaSol BGK 4/2.5, 750 mL/hr, Last Rate: 750 mL/hr (07/29/24300) PrismaSol BGK 4/2.5, 750 mL/hr, Last Rate: 750 mL/hr (07/29/24299) propofol, 5-50 mcg/kg/min, Last Rate: 35 mcg/kg/min (07/29/24299) Objective: Last Vitals: BP MAP (!) 122/45 (07/28/24 0000) 67 (07/28/24 0000) Arterial BP MAP 146/57 (07/29/24 07) 84 mmHg (07/29/24699) Temp 36.1 C (97 F) (07/29/24 0400) Pulse 74 (07/29/24699) Resp 20 (07/29/24699) SpO2 98 % (07/29/24699) Weight 62 kg (136 lb 11 oz) (07/29/24 0500) BMI Body mass index is 22.06 kg/m . I/O: 07/28 700 - 07/29 659 In: 2652.4 [I.V.:1533.4] Out: 2398 Ventilator: Resp Rate (Set): 20 Vt (Set, mL): 470 mL FiO2 (%): 30 % PEEP/CPAP (cm H2O): 8 cm H20 Inspiratory Time (sec): 1 sec Oxygen Delivery: Invasive Lines / Tubes / Drains: CVC Triple Lumen 07/26/24 Right Internal jugular (Active) Number of days: 1 Peripheral IV Anterior;Right Forearm (Active) Number of days: Peripheral IV Right Antecubital (Active) Number of days: Urethral Catheter Straight-tip (Active) Number of days: 0 Hi-Lo Evac ETT (Active) Number of days: 2 Feeding Tube (Active) Number of days: 1 Hemodialysis Cath Double Lumen 07/27/24 Left Non-tunneled catheter Internal jugular (Active) Number of days: 1 Central Line Indication: Inadequate peripheral access despite documented ultrasound attempts AND unable to place extended dwell PIV Johnson Indications: Hourly I&Os (Critical Care ONLY) Restraints: Restraints Non-Violent Or Non-Self Destructive Jul 27, 2024 3:35 Am Edt Restraint order already placed. Order is valid for duration of episode. Wounds: Constitutional: General Appearance []WDWN [x]Obese []Cachectic []Thin []Ill Eyes: Inspection of Pupils/Irises Pupils round and react: [x]Yes []No Sclera: []Icteric [x]Non-Icteric Inspection of Conjunctiva/Lids Conjunctiva: []Injected []Non-Injected Lids: [x]Intact []Lesion Present ENT/Mouth: External Inspection of ears/nose [] Normal [] Scar/Lesion/Mass Inspection of teeth/lips/gums Dentition: [][place] Teeth []Dentures Lips/Gums: [x]Intact []Lesion Present Mucosa: [x]Pinson [x]Moist []Dry Neck: External Appearance Overall Appearance: [x]Normal []Lesion/Mass/Crepitus Present Trachea midline: [x]Yes []No Thyroid [x]Normal []Enlarged []Tender []Mass []Absent Respiratory: Respiratory effort []Labored []Non-Labored [x] Mechanically-Ventilated Auscultation []Clear [x]Crackles []Wheezes [x]Rhonchi Cardiovascular: Auscultation Rate: [x]Regular []Irregular []Tachycardia []Bradycardia Rhythm: []Regular [x]Irregular Murmur: []Present [x]Absent Extremities Peripheral Edema: []Present [x]Absent Varicosities: []Present [x]Absent Gastrointestinal: Abdomen Palpation: [x]Soft []Firm []Tender [x]Non-Tender []Distended [x]Non-distended Mass: []Present []Absent Bowel Sounds: [x]Present []Absent Hernia: []Present []Absent Liver/Spleen: []Hepatosplenomegaly []Organomegaly Absent Musculoskeletal: Inspection of Digits and Nails Cyanosis: []Present [x]Absent Clubbing: []Present [x]Absent Ischemia: []Present [x]Absent Infection: []Present [x]Absent Extremities ROCHE Equally: Except ([]RUE []RLE []LUE []LLE) Strength/Tone: Intact and Normal ([]RUE []RLE []LUE []LLE) Skin: Inspection [x]Normal []Rash []Lesion []Ulcer -Bruises present from IV sticks Palpation [x]Warm []Cool [x]Dry []Clammy []Nodules []Induration []Skin-tightening Cap-Refill: [x] <3 sec [] >3 seconds (delayed) Neurologic: GCS EYE: 1 - No eye opening GCS MOTOR: 6 - Obeys commands for movement GCS VERBAL: 1 - No response Total GCS: 8 [] Sensation grossly intact Psych: Mental Status Alert: []Yes [x] No Oriented: [x]x0 []X1 []X2 []x3 Mood/Affect []Normal []Flat []Agitated []Depressed []Anxious []Calm [x]Sedated []NAD - Agitated upon awakening [facility] within last 24 hours- BMP: Recent Labs 07/27/24 2114 07/28/24 0409 07/28/24 1257 07/28/24 1808 07/28/24 2349 07/29/24 0557 NA 131* 131* 130* 131* 130* 131* K 3.6 4.5 4.5 4.2 4.6 5.2* CL 102 104 102 103 104 104 CO2 24 23 24 26 26 25 BUN 41* 34* 31* 30* 28* 28* CREATININE 2.18* 1.80* 1.50* 1.33* 1.26* 1.32* CALCIUM 7.3* 7.4* 7.3* 7.8* 7.4* 7.5* MG 1.9 2.2 2.7* -- -- -- PHOS -- 3.6 3.5 2.7 2.4* 3.2 LFTs: Recent Labs 07/26/24 18507/27/24 0530 07/27/24 1427 07/28/24 1257 07/28/24 18007/28/24 2349 07/29/24 0557 AST 40 28 -- 44 -- -- -- ALT 21 19 -- 23 -- -- -- PROT 5.5* 4.9* -- 4.6* -- -- -- ALBUMIN 2.9* 2.4* < > 2.2* 2.1* 2.2* 2.0* BILITOT 0.5 0.3 -- 0.5 -- -- -- ALKPHOS 68 66 -- 78 -- -- -- < > = values in this interval not displayed. Glucose: Recent Labs 07/27/24 0530 07/27/24 0950 07/27/24 1427 07/27/24 1506 07/27/24 2114 07/27/24 2222 07/27/24 2338 07/28/24 0409 07/28/24 0414 07/28/24 0938 07/28/24 1257 07/28/24 1514 07/28/24 1808 07/28/24200607/28/24 2346 07/28/24 2349 07/29/24 0557 07/29/24 0601 GLUCOSE 254* -- 83 -- 87 -- -- 143* -- -- 149* -- 139* -- -- 123* 206* -- POCGLU -- < > -- < > -- 88 119* -- 148* 131* -- 186* -- 106* 130* -- -- 217* < > = values in this interval not displayed. Procal: Recent Labs 07/26/241849 PROCAL 2.48* CBC: Recent Labs 07/27/24 0530 07/27/24 0652 07/28/24 0409 07/29/24 0557 07/29/24 0558 WBC 14.5* -- 11.5* 6.5 -- HGB 8.8* < > 9.2 8.8* 7.7* 8.2 HCT 27.2* -- 25.8* 23.1* -- PLT 186 -- 160 141 -- MCV 88.0 -- 84.6 85.9 -- RDW 15.3* -- 15.0 15.2* -- < > = values in this interval not displayed. ABGs: Recent Labs 07/27/24 1622 07/28/24 0409 07/29/24 0558 PHART 7.398 7.401 7.502* CIZ4CYI 41.9 38.6 32.6* PO2ART 100.1* 120.0* 110.0* PBN2ARR 25.3* 23.4 25.0 [id number] 30% Oxygen Vent Vent Lactic Acid: Recent Labs 07/26/24 1850 LACTATE 0.9 INR: No results for input(s): INR in the last 72 hours. Cardiac Injury Profile: Recent Labs 07/26/24 1850 07/26/24 2156 07/27/24 0246 07/27/24 0530 CKTOTAL -- -- -- 865* TROPONINI 0.013 0.014 0.017 -- Labs in Last 3 months: Lab Results Component Value Date TSH 3.472 07/26/2024 Microbiology- Urine Cx: No results found for: URINECX Blood Cx: No results found for: BLOODCX Sputum Cx: Lab Results Component Value Date RESPCULT Rare respiratory keven present. 07/27/2024 RESPCULT Few Staphylococcus aureus (A) 07/27/2024 Gram Stain: Lab Results Component Value Date LABGRAM (A) 07/27/2024 Many Polymorphonuclear leukocytes per low power field LABGRAM Few Epithelial cells per low power field (A) 07/27/2024 LABGRAM Moderate Gram positive cocci (A) 07/27/2024 PNA PCR: Lab Results Component Value Date HUMANMETAPNE Not Detected 07/27/2024 COVID19: No results found for: COVID19 Legionella Ag: Lab Results Component Value Date LEGIONELLAPN Not Detected 07/27/2024 Strep Ag: No results for input(s): STREPPNEUMO in the last 72 hours. Imaging- CXR 07/27 IMPRESSION: 1. Probable small layering right basilar pleural effusion. 2. COPD changes. 3. Lines and support devices as above. 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 Rec MRI if she is not at baseline cognition after extubation Acute on Chronic Hypoxemic, Hypercapnic Resp Failure Septic Shock 2/2 Polymicrobial PNA COVID pos at OSH, micro testing pos for non-COVID coronavirus on admission - Cont vasopressors MAP goal >65 - Per ID stewardship, tx with mary ann for CTX-M pseudomonas coverage - Start Date: 07/27 - End Date: 08/02 - Cont Decadron x10d. End-date: 08/04 - Cont Remdesivir x5d. End-date: 07/31 - Can adjust precautions after remdesivir completed - Consider adjusting sedation due to agitation on current regimen UMA on CKD Stage 4, now requiring CRRT Hyponatremia Hyperkalemia New Onset Arrhythmia (Trigeminy/Bigeminy) likely 2/2 electrolyte derangements - Nephro following, appreciate recs - Suspect UMA likely started as prerenal but advanced to ATN 2/2 prolonged shock - Increased BMP, Mg, Phos, and iCal to Q6H for aggressive electrolyte replacement - Cont CRRT - Initial Na 125, now 131 - Minimal urine output (unclear how much urine she makes at baseline with CKD) GI Prophylaxis: Pantoprazole IV DVT Prophylaxis: SCDs Disposition: Remain in ICU Status Critical Care Time: Total critical care time caring for this patient with life threatening, unstable organ failure, including direct patient contact, management of life support systems, review of data including imaging and labs, discussions with other team members and physicians, excluding procedures. Associated attestation - Kena Heath DO - 07/29/2024 2:48 PM EDT I have personally performed a [id number] diagnostic evaluation on this patient on date of service07/29/2024. History, labs, imaging studies, and electronic medical record have been reviewed by me. This note documented by the [x]warehouse incentive selector []TONJA reflects my history, exam, and medical decision making. I have reviewed and agree with the care plan. Changes were made in the orders as necessary. ROS documentation was reviewed and negative unless otherwise stated in HPI. Additional pertinent interval history, ROS, and physical exam findings: Ms Deng seen and evaluated at bedside. No acute events overnight. Remains intubated on minimal vent support. Continues to require low dose levo. Assessment: Septic shock Acute hypoxic, hypercapnic respiratory failure - intubated 07/26 COVID 19 positive, outside hospital Pneumonia d/t MSSA, ESBL Pseudomonas UMA on CKD 4 - started on CRRT 07/26 Small right subdural hematoma, stable Diabetes mellitus type 1 with hyperglycemia Normocytic anemia, unclear baseline COPD Hyperlipidemia Plan: -Maintain mechanical ventilation, titrate to ABG -Vasopressor support as needed to maintain MAP >65 -Complete course remdesivir, decadron -Complete course of meropenem -Appreciate nephrology recommendations regarding CRRT -Consult neuroCC, appreciate recommendations -Neurosurgery evaluated patient, no acute interventions. Plan to follow up within 2 weeks of discharge for repeat imaging. Hold Plavix until that time. -Insulin to maintain serum glucose 140-180 Total critical care time for this patient with life-threatening unstable organ failure, including direct patient contact, management of life support systems, review of data including imaging and labs, and discussions with other team members and physicians at least 41 minutes so far today, excludingprocedures. * Cruzito Molina, CHEMISTRY INTERN - 07/29/2024 3:05 AM EDT 07/29/24 0258 Wean Screen SpO2>/=88% Yes FiO2</=50% Yes PEEP </=8cmH2O Yes HR <140 BPM Yes RR </= 35 breaths/min Yes MAP >/= 65mmHg Yes Arterial pH >7.30 Yes Safety Screen Spontaneous Breathing Trial (SBT - RT) Proceed with SBT - No exclusion criteria met * Karyn Jones MD - 07/28/2024 11:06 AM EDT Images from the original note were not included. Initial Nephrology Consult Note Patient: Sandy Deng Room number: T2-213/T2213 A Date of Admit: 07/26/2024 LOS: 2 days Referring physician: Kena Heath DO Outpatient X Ray Inspector: Christy Huerta Reason for Consult: Asked to see/evaluate by primary service for opinion regarding: UMA on CKD Assessment/Plan: 1. UMA, anuric - Cr has been 2.4-2.8, last (04/26) Cr 2.4 eGFR 20 - On admit, (07/26) Cr 4.56, lowest SBP 90s, got 1 L NS bolus, on levo gtt (vasopressin now dc). CRRT initiated via L internal jugular non-tunneled dialysis cath 07/26, running even - suspect started as prerenal -> ATN (prolonged prerenal/shock). No obstruction on renal us (hasB small/strophic kidneys) - unable to send urine studies (anuric); CK, C3/C4 pending - cont CRRT running even (hemodynamic instability) - monitor K, phos, iCa: expect to drop with CRRT 2. CKD 4 - follows with Dr Christy Huerta ([facility]). - On review of available labs, Cr has been 2.4-2.8, last (04/26) Cr 2.4 eGFR 20, 24 hr [id number]=9247 mg. - Home med includes losartan 25 mg daily 3. Electrolytes - Hyponatremia, Na was 125, improving - Hyperkalemia - improved with CRRT; now on 4k bags 4. Acid-base - bicarb now 23 - lactate 0.9 - last pH 7.4, HCO3 23, pCO2 38 - off bicarb gtt - managed with CRRT 5. BMD; Secondary HPT - hypocalcemia: iCa 4.1. team repleting. Monitor iCa daily and repeat if low (expect to drop with CRRT) - hyperphosphatemia, improving with CRRT - can check 25, iPTH 6. Anemia - plts normal - defer pRBC needs to primary 7. Acute resp failure/COVID - intubated, per CCM - remdesivir/steroids/meropenem 8. Altered MS R SDH - Neurocrit consulted - cEEG overnight. Read pending but no notification of seizures per Neuro Will follow along as directed. Thank you for allowing us to participate in the care of this patient. HPI: Sandy Deng is a 63 y.o. female with a past medical history of: COPD (3L O2 baseline), DM type 1, CKD 4, HTN, CAD (PCI with stents in 2017). who was admitted by,Ino Conte MD, for SDH (subdural hematoma) ([facility]) [S06.5XAA]. Mrs. Deng is a 63 year old female with PMH of COPD (3L O2 baseline), DM type 1, CKD 4, HTN, CAD (PCI with stents in 2017). initially presenting with resp distress and delirium, Covid positive. She was eventually intubated. CT head showed a small right SDH. Continues to be on levo gtt, dose being tapered down. Consulted for UMA on CKD 4 - follows with Dr Christy Huerta ([facility]). On review of available labs, Cr has been 2.4-2.8, last (04/26) Cr 2.4 eGFR 20, 24 hr [id number]=7695 mg. Home med includes losartan 25 mg daily. On admit, (07/26) Cr 4.56, lowest SBP 90s, got 1 L NS bolus, on levo gtt (vasopressin nowdc). Oligoanuric. Was on bicarb gtt but then needed CRRT initiation for severe acidosis in setting of hemodynamic instability. cEEG overnight. Read pending but no notification of seizures per Neuro. Contrast exposure: none Nephrotoxic drug exposure: no documented use of aminoglycosides or NSAIDs. Hypotensive episodes: none documented. Home medications/pre-hospital medications reviewed. Notable for: losartan 25 mg daily Medications: Scheduled Meds:dexAMETHasone, 6 mg, IntraVENous, q24h Glycopyrrolate-Formoterol, 2 puff, Inhalation, BID insulin glargine, 5 Units, SubCUTAneous, Nightly insulin regular, 0-18 Units, SubCUTAneous, q6h ipratropium-albuterol, 3 mL, Nebulization, BID meropenem, 1,000 mg, IntraVENous, q12h mupirocin, 1 Application, Nasal, BID pantoprazole (ProtoNix) 40 mg in sodium chloride (PF) 0.9 % 10 mL injection, 40 mg, IntraVENous, BID remdesivir (Veklury) 100 mg in sodium chloride 0.9 % 250 mL IVPB, 100 mg, IntraVENous, q24h Continuous Infusions:fentaNYL, 25-200 mcg/hr, Last Rate: 125 mcg/hr (07/28/24 1000) norepinephrine, 2-100 mcg/min, Last Rate: 2 mcg/min (07/28/24 0927) PrismaSol BGK 4/2.5, 750 mL/hr, Last Rate: 750 mL/hr (07/28/24 0554) PrismaSol BGK 4/2.5, 750 mL/hr, Last Rate: 750 mL/hr (07/28/24 0553) PrismaSol BGK 4/2.5, 750 mL/hr, Last Rate: 750 mL/hr (07/28/24 0552) propofol, 5-50 mcg/kg/min, Last Rate: 40 mcg/kg/min (07/28/24 1007) Allergies: Not on File Review of Systems: Unable to perform ROS, pt intubated Physical Exam: Vitals: 07/28/24 1000 07/28/24 1015 07/28/24 1030 07/28/24 1045 BP: BP Location: Patient Position: Pulse: 80 82 81 80 Resp: 20 20 20 16 Temp: TempSrc: SpO2: 97% 100% 100% 100% Weight: Height: Today's weight: Weight: 61.2 kg (134 lb 14.7 oz) Admission weight: Weight: 48 kg (105 lb 13.1 oz) Wt Readings from Last 3 Encounters: 07/28/24 61.2 kg (134 lb 14.7 oz) Estimated body mass index is 21.78 kg/m as calculated from the following: Height as of this encounter: 1.676 m (5' 6). Weight as of this encounter: 61.2 kg (134 lb 14.7 oz). @IODETAILS@ Intake/Output Summary (Last 24 hours) at 07/28/2024 1106 Last data filed at 07/28/2024 1100 Gross per 24 hour Intake 2707.7 ml Output 2811 ml Net -103.3 ml [REMOVED] Urethral Catheter-Output (mL): 5 mL Urethral Catheter Rbnpphsk-xlp-Brnric (mL): 0 mL FIO2 needs: Patient Vitals for the past 1 hrs: FiO2 (%) 07/28/24 1045 30 % 07/28/24 1030 30 % 07/28/24 1015 30 % General Appearance no acute distress, intubated, sedated HEENT Neck anicteric sclera, moist mucus membranes, normal external ears/nares, no facial edema Supple neck, midline trachea without tracheal deviation, no palpable cervical or supraclavicular lymph nodes Chest symmetric, normal shape/expansion, no chest wall/sternal tenderness; L int jug temp dialysis cath Heart RRR, no audible pericardial rubs, no audible murmurs, no palpable LV heave. Lungs Fine rales, easy effort on vent Abdomen Skin soft without distension, normal bowel sounds, no grimacing on palpation no rash or subcutaneous nodules, warm and dry skin with good turgor Musculoskeletal no leg edema, normal hair distribution on legs johnson catheter present Neurologic no resting tremor, myoclonic movement less pronounced Psychiatric Unable to assess LABS: Recent Labs 07/26/24184907/26/24 2232 07/27/24 0530 07/27/24 0652 07/27/24 1622 07/28/24 0409 WBC 18.7* -- 14.5* -- -- 11.5* HGB 10.1* < > 8.8* < > 8.9 9.2 8.8* HCT 31.3* -- 27.2* -- -- 25.8* MCV 88.7 -- 88.0 -- -- 84.6 PLT 244 -- 186 -- -- 160 < > = values in this interval not displayed. No results found for: IRON, TIBC, FERRITIN No results found for: [id number], FOLATE Recent Labs 07/26/24184907/27/24 0530 07/27/24 1427 07/27/24 2114 07/28/24 0409 NA 125* 130* 131* 131* 131* K 5.5* 4.3 3.6 3.6 4.5 CL 98 101 102 102 104 CO2 17* 18* BUN 76* 66* 49* 41* 34* CREATININE 4.56* 4.00* 2.81* 2.18* 1.80* GLUCOSE 252* 254* 83 87 143* CALCIUM 5.5* 6.5* 7.5* 7.3* 7.4* MG 1.5* 2.0 -- 1.9 2.2 PHOS 8.5* 6.8* 4.6* -- 3.6 ANIONGAP 10 11 4 6 4 Lab Results Component Value Date CAION 4.10 (L) 07/28/2024 Lab Results Component Value Date CKTOTAL 865 (H) 07/27/2024 ALT 19 07/27/2024 AST 28 07/27/2024 No results for input(s): INR, PROTIME, PTT in the last 72 hours. No results for input(s): COLORU, CLARITYU, PH, PHUR, LABSPEC, GLUCOSEU, BLOODU, LEUKOCYTESUR, NITRITE, BILIRUBINUR, UROBILINOGEN, BACTERIA, AMORPHOUS, CASTS in the last 72hours. No lab exists for component: PROTEINUA, KEYTONESU, RBCUA, WBCUA, CRYSTAL Recent Labs 07/26/241957 NAUR 31 Diagnostic Studies: TTE: CXR: reviewed in PACS Personally reviewed MARS, labs, radiologic studies and notes. Karyn Jones MD Pager [phone] [facility] [phone] * Torito Mahajan - 07/28/2024 10:43 AM EDT NEUROCRITICAL CARE PROGRESS NOTE Patient Name: Sandy Deng Patient : 1960 Acct: [id number] Date of Admission: 07/26/2024 Room/Bed: T2-213/T2-213 A PCP: Bird Lujan Interval Events: - Placed on cEEG overnight. Read pending but no notification of seizures - Exam significantly improved Current Hospital Medications: Current Facility-Administered Medications: dexAMETHasone (Decadron) injection 6 mg, 6 mg, IntraVENous, q24h, Kena Heath DO, 6 mg at 07/27/24 1809 dextrose 5 % infusion, 100 mL/hr, IntraVENous, PRN, Deacon Mazariegos MD dextrose 50 % solution 12.5 g, 12.5 g, IntraVENous, PRN, Deacon Mazariegos MD, 12.5 g at 07/27/242024 fentaNYL (Sublimaze) 1000 mcg in sodium chloride 0.9 % 100 mL 10 mcg/mL infusion, 25-200 mcg/hr, IntraVENous, Continuous, Clara Mayes DO, Last Rate: 12.5 mL/hr at 07/28/24 1000, 125 mcg/hr at 07/28/24 1000 glucagon (human recombinant) injection 1 mg, 1 mg, IntraMUSCular, PRN, Deacon Mazariegos MD glucose oral gel 15 g, 15 g, Oral, PRN, Deacon Mazariegos MD Glycopyrrolate-Formoterol (Bevespi Aerosphere) 9-4.8 MCG/ACT inhaler 2 puff, 2 puff, Inhalation, BID, Deacon Mazariegos MD hydrALAZINE (Apresoline) injection 10 mg, 10 mg, IntraVENous, q2h PRN, Deacon Mazariegos MD insulin glargine (Lantus) injection 5 Units, 5 Units, SubCUTAneous, Nightly, Saroj Knox MD, 5 Units at 07/27/242039 insulin regular (HumuLIN R,NovoLIN R) injection 0-18 Units, 0-18 Units, SubCUTAneous, q6h, Dariel Santizo MD, 3 Units at 07/28/24 0420 ipratropium-albuterol (Duo-Neb) 0.5-2.5 mg/3 mL nebulizer solution 3 mL, 3 mL, Nebulization, BID, Deacon Mazariegos MD, 3 mL at 07/28/24 0918 labetalol (Normodyne,Trandate) injection 10 mg, 10 mg, IntraVENous, q15 min PRN, Deacon Mazariegos MD [COMPLETED] meropenem (Merrem) 1,000 mg in sodium chloride 0.9 % 100 mL IVPB, 1,000 mg, IntraVENous, Once, Stopped at 07/27/24 1538 FOLLOWED BY meropenem (Merrem) 1,000 mg in sodium chloride 0.9 % 100 mL IVPB, 1,000 mg, IntraVENous, q12h, Kena Heath DO, Stopped at 07/28/24 0231 mupirocin (Bactroban) 2 % ointment 1 Application, 1 Application, Nasal, BID, Clara Mayes DO,1 Application at 07/28/24 0821 naloxone (Narcan) injection 0.4 mg, 0.4 mg, IntraVENous, q5 min PRN, Colin Peoples MD norepinephrine (Levophed) infusion 16 mg in 0.9 % sodium chloride 250 mL (Kxg-Tcumbn-Hcrhm) (premix), 2-100 mcg/min, IntraVENous, Continuous, Simone Momin DO, Last Rate: 1.88 mL/hr at 07/28/24 09, 2 mcg/min at 07/28/24 09 ondansetron ODT (Zofran-ODT) disintegrating tablet 4 mg, 4 mg, Oral, q8h PRN OR ondansetron (Zofran) injection 4 mg, 4 mg, IntraVENous, q6h PRN, Clara Mayes DO pantoprazole (ProtoNix) 40 mg in sodium chloride (PF) 0.9 % 10 mL injection, 40 mg, IntraVENous, BID, Clara Mayes DO, 40 mg at 07/28/24 0420 polyethylene glycol (PEG) 3350 (Miralax) packet 17 g, 17 g, Oral, Daily PRN, Clara Mayes DO PrismaSol BGK 4/2.5 CRRT solution, 750 mL/hr, CRRT, Continuous, Karyn Jones MD, Last Rate: 750 mL/hr at 07/28/24 0554, 750 mL/hr at 07/28/24 0554 PrismaSol BGK 4/2.5 CRRT solution, 750 mL/hr, CRRT, Continuous, Karyn Jones MD, Last Rate: 750 mL/hr at 07/28/24 0553, 750 mL/hr at 07/28/24 0553 PrismaSol BGK 4/2.5 CRRT solution, 750 mL/hr, CRRT, Continuous, Karyn Jones MD, Last Rate: 750 mL/hr at 07/28/24 0552, 750 mL/hr at 07/28/24 0552 propofol (Diprivan) infusion, 5-50 mcg/kg/min, IntraVENous, Continuous, Clara Mayes DO, LastRate: 11.52 mL/hr at 07/28/24 1007, 40 mcg/kg/min at 07/28/24 1007 [COMPLETED] remdesivir (Veklury) 200 mg in sodium chloride 0.9 % 250 mL IVPB, 200 mg, IntraVENous, Once, Stopped at 07/27/24 0159 FOLLOWED BY remdesivir (Veklury) 100 mg in sodium chloride 0.9 % 250 mL IVPB, 100 mg, IntraVENous, q24h, Kena Heath DO, Stopped at 07/27/24 1843 sodium chloride 0.9 % bolus 30 mL, 30 mL, IntraVENous, PRN, Kena Heath DO sodium chloride 0.9 % infusion, 75 mL/hr, IntraVENous, PRN, Clara Mayes DO Continuous Infusions: fentaNYL, 25-200 mcg/hr, Last Rate: 125 mcg/hr (07/28/24 1000) norepinephrine, 2-100 mcg/min, Last Rate: 2 mcg/min (07/28/24926) PrismaSol BGK 4/2.5, 750 mL/hr, Last Rate: 750 mL/hr (07/28/2454) PrismaSol BGK 4/2.5, 750 mL/hr, Last Rate: 750 mL/hr (07/28/2453) PrismaSol BGK 4/2.5, 750 mL/hr, Last Rate: 750 mL/hr (07/28/24551) propofol, 5-50 mcg/kg/min, Last Rate: 40 mcg/kg/min (07/28/241006) Vitals: Patient Vitals for the past 8 hrs: Temp Temp src Pulse Resp SpO2 Weight 07/28/2445 -- -- 71 20 98 % -- 07/28/2438 -- -- 72 20 98 % -- 07/28/24929 -- -- 75 20 100 % -- 07/28/24921 -- -- 69 20 100 % -- 07/28/24919 -- -- 68 20 100 % -- 07/28/24914 -- -- 68 20 100 % -- 07/28/24899 -- -- 73 20 100 % -- 07/28/24 0845 -- -- 64 20 100 % -- 07/28/24 0830 -- -- 68 20 100 % -- 07/28/24 0815 -- -- 68 20 95 % -- 07/28/24 0800 36.2 C (97.1 F) Temporal 71 20 100 % -- 07/28/2445 -- -- 69 20 99 % -- 07/28/2430 -- -- 70 20 97 % -- 07/28/2415 -- -- 70 20 97 % -- 07/28/24699 -- -- 70 20 98 % -- 07/28/2445 -- -- 74 20 99 % -- 07/28/2430 -- -- 70 20 97 % -- 07/28/24 0615 -- -- 71 20 97 % -- 07/28/24 06 -- -- 71 20 98 % -- 07/28/24 0545 -- -- 72 20 96 % -- 07/28/24 0530 -- -- 73 20 97 % -- 07/28/24 0515 -- -- 75 20 96 % -- 07/28/24 0500 -- -- 71 20 97 % 61.2 kg (134 lb 14.7 oz) 07/28/24 0445 -- -- 72 20 98 % -- 07/28/24 0430 -- -- 73 20 96 % -- 07/28/24 0415 -- -- 73 20 96 % -- 07/28/24 0400 36.1 C (96.9 F) Temporal 73 20 96 % -- 07/28/24 0345 -- -- 74 20 98 % -- 07/28/24 0331 -- -- 74 20 97 % -- 07/28/24 0315 -- -- 74 20 98 % -- 07/28/24 0300 -- -- 73 20 98 % -- 07/28/24 0245 -- -- 75 20 98 % -- I/O last 3 completed shifts: In: 5341.8 (87.3 mL/kg) [I.V.:4952.8 (80.9 mL/kg); NG/GT:389] Out: 3052 (49.9 mL/kg) [Urine:133 (0.1 mL/kg/hr)] Weight: 61.2 kg Physical Examination: General: Intubated and sedated HEENT: Normocephalic and atraumatic. Cardiac: Regular rate and rhythm Pulm: Clear to ausculation bilaterally. GI/: Nondistended, nontender. Ext: No edema. Skin: No rashes or lesions. Neuro: Intubated and sedated Arouses to voice stim Follows commands PERRL, EOMI, BTT, face symmetric, +gag, +cough Antigravity in extremities Results: Recent Results (from the past 24 hour(s)) POCT glucose meter Collection Time: 07/27/24 11:05 AM Result Value Ref Range Glucose 174 (H) 70 - 100 mg/dL POCT glucose meter Collection Time: 07/27/24 12:05 PM Result Value Ref Range Glucose 133 (H) 70 - 100 mg/dL POCT glucose meter Collection Time: 07/27/24 1:15 PM Result Value Ref Range Glucose 110 (H) 70 - 100 mg/dL POCT glucose meter Collection Time: 07/27/24 1:58 PM Result Value Ref Range Glucose 97 70 - 100 mg/dL Blood Gas, Arterial Collection Time: 07/27/24 2:24 PM Result Value Ref Range pH, Arterial 7.286 (L) 7.350 - 7.450 pCO2, Arterial 52.3 (H) >35.0 - <45.0 mm Hg pO2, Arterial 115.1 (H) 80.0 - 100.0 mm Hg HCO3, Arterial 24.4 21.0 - 25.0 mmol/L O2 Sat, Arterial 97.1 95.0 - 100.0 % Base Excess, Arterial -2.5 -3.0 - 3.0 mmol/L CO2 Total 26.0 23.0 - 27.0 mmol/L Hgb, blood gas 9.3 Screen only g/dl Source Of Oxygen 30% Oxygen Renal function panel Collection Time: 07/27/24 2:27 PM Result Value Ref Range SODIUM 131 (L) 135 - 145 mmol/L POTASSIUM 3.6 3.5 - 5.1 mmol/L CHLORIDE 102 98 - 107 mmol/L CARBON DIOXIDE 25 22 - 30 mmol/L ANION GAP 4 3 - 13 mmol/L GLUCOSE 83 70 - 100 mg/dL UREA NITROGEN 49 (H) 7 - 17 mg/dL CREATININE 2.81 (H) 0.52 - 1.04 mg/dL eGFR 18.2 (L) >60.0 mL/min/1.73m*2 CALCIUM 7.5 (L) 8.4 - 10.4 mg/dL ALBUMIN 2.4 (L) 3.5 - 5.0 g/dL PHOSPHORUS 4.6 (H) 2.5 - 4.5 mg/dL Calcium, ionized Collection Time: 07/27/24 2:27 PM Result Value Ref Range Calcium, Ion 4.20 (L) 4.30 - 5.20 mg/dL PH, IONIZED CALCIUM 7.32 7.31 - 7.46 Hepatitis B surface antibody Collection Time: 07/27/24 2:27 PM Result Value Ref Range HEPATITIS B VIRUS SURFACE AB <8.0 mIU/mL Hepatitis B surface antigen Collection Time: 07/27/24 2:27 PM Result Value Ref Range HEPATITIS B VIRUS SURFACE AG Not Detected Not Detected POCT glucose meter Collection Time: 07/27/24 3:06 PM Result Value Ref Range Glucose 76 70 - 100 mg/dL POCT glucose meter Collection Time: 07/27/24 4:04 PM Result Value Ref Range Glucose 72 70 - 100 mg/dL Blood Gas, Arterial Collection Time: 07/27/24 4:22 PM Result Value Ref Range pH, Arterial 7.398 7.350 - 7.450 pCO2, Arterial 41.9 >35.0 - <45.0 mm Hg pO2, Arterial 100.1 (H) 80.0 - 100.0 mm Hg HCO3, Arterial 25.3 (H) 21.0 - 25.0 mmol/L O2 Sat, Arterial 97.1 95.0 - 100.0 % Base Excess, Arterial 0.4 -3.0 - 3.0 mmol/L CO2 Total 26.5 23.0 - 27.0 mmol/L Hgb, blood gas 8.9 Screen only g/dl Source Of Oxygen 30% Oxygen POCT glucose meter Collection Time: 07/27/24 6:03 PM Result Value Ref Range Glucose 53 (L) 70 - 100 mg/dL POCT glucose meter Collection Time: 07/27/24 6:19 PM Result Value Ref Range Glucose 110 (H) 70 - 100 mg/dL POCT glucose meter Collection Time: 07/27/24 6:37 PM Result Value Ref Range Glucose 86 70 - 100 mg/dL POCT glucose meter Collection Time: 07/27/24 8:13 PM Result Value Ref Range Glucose 64 (L) 70 - 100 mg/dL POCT glucose meter Collection Time: 07/27/24 8:40 PM Result Value Ref Range Glucose 112 (H) 70 - 100 mg/dL ECG 12 lead Collection Time: 07/27/24 9:13 PM Result Value Ref Range Heart Rate 72 bpm QRSD Interval 91 ms QT Interval 416 ms QTC Interval 456 ms P [place] 0 degrees QRS [place] 14 degrees T Wave [place] 0 degrees [place] Interval 0 ms Basic metabolic panel Collection Time: 07/27/24 9:14 PM Result Value Ref Range SODIUM 131 (L) 135 - 145 mmol/L POTASSIUM 3.6 3.5 - 5.1 mmol/L CHLORIDE 102 98 - 107 mmol/L CARBON DIOXIDE 24 22 - 30 mmol/L UREA NITROGEN 41 (H) 7 - 17 mg/dL CREATININE 2.18 (H) 0.52 - 1.04 mg/dL GLUCOSE 87 70 - 100 mg/dL CALCIUM 7.3 (L) 8.4 - 10.4 mg/dL ANION GAP 6 3 - 13 mmol/L eGFR 24.7 (L) >60.0 mL/min/1.73m*2 Calcium, ionized Collection Time: 07/27/24 9:14 PM Result Value Ref Range Calcium, Ion 4.00 (L) 4.30 - 5.20 mg/dL PH, IONIZED CALCIUM 7.50 (H) 7.31 - 7.46 Magnesium Collection Time: 07/27/24 9:14 PM Result Value Ref Range MAGNESIUM 1.9 1.6 - 2.3 mg/dL POCT glucose meter Collection Time: 07/27/24 10:22 PM Result Value Ref Range Glucose 88 70 - 100 mg/dL POCT glucose meter Collection Time: 07/27/24 11:38 PM Result Value Ref Range Glucose 119 (H) 70 - 100 mg/dL CBC auto differential Collection Time: 07/28/24 4:09 AM Result Value Ref Range Auto WBC 11.5 (H) 3.6 - 10.7 10*3/uL RBC 3.05 (L) 3.80 - 5.20 10*6/uL Hemoglobin 8.8 (L) 11.7 - 16.0 g/dL Hematocrit 25.8 (L) 35.0 - 47.0 % MCV 84.6 77.0 - 99.0 fL MCH 28.9 26.0 - 34.0 pg MCHC 34.1 30.5 - 36.0 % RDW 15.0 11.5 - 15.0 % Platelets 160 140 - 440 10*3/uL MPV 10.5 9.0 - 12.7 fL nRBC 0.0 0.0 - 2.0 /100 WBCs Neutrophils Relative 93.0 (H) 38.0 - 82.0 % Lymphocytes Relative 2.9 (L) 15.0 - 45.0 % Monocytes Relative 3.6 (L) 5.0 - 13.0 % Eosinophils Relative 0.0 0.0 - 6.0 % Basophils Relative 0.1 0.0 - 2.0 % Immature Grans % 0.4 0.0 - 2.0 % Neutrophils Absolute 10.7 (H) 1.8 - 7.5 10*3/uL Lymphocytes Absolute 0.3 (L) 1.0 - 4.3 10*3/uL Monocytes Absolute 0.4 0.0 - 0.9 10*3/uL Eosinophils Absolute 0.0 0.0 - 0.5 10*3/uL Basophils Absolute 0.0 0.0 - 0.2 10*3/uL Immature Grans Absolute 0.1 (H) <0.1 10*3/uL Magnesium Collection Time: 07/28/24 4:09 AM Result Value Ref Range MAGNESIUM 2.2 1.6 - 2.3 mg/dL Phosphorus Collection Time: 07/28/24 4:09 AM Result Value Ref Range PHOSPHORUS 3.6 2.5 - 4.5 mg/dL Calcium, ionized Collection Time: 07/28/24 4:09 AM Result Value Ref Range Calcium, Ion 4.10 (L) 4.30 - 5.20 mg/dL PH, IONIZED CALCIUM 7.44 7.31 - 7.46 Basic metabolic panel Collection Time: 07/28/24 4:09 AM Result Value Ref Range SODIUM 131 (L) 135 - 145 mmol/L POTASSIUM 4.5 3.5 - 5.1 mmol/L CHLORIDE 104 98 - 107 mmol/L CARBON DIOXIDE 23 22 - 30 mmol/L UREA NITROGEN 34 (H) 7 - 17 mg/dL CREATININE 1.80 (H) 0.52 - 1.04 mg/dL GLUCOSE 143 (H) 70 - 100 mg/dL CALCIUM 7.4 (L) 8.4 - 10.4 mg/dL ANION GAP 4 3 - 13 mmol/L eGFR 31.1 (L) >60.0 mL/min/1.73m*2 Blood Gas, Arterial Collection Time: 07/28/24 4:09 AM Result Value Ref Range pH, Arterial 7.401 7.350 - 7.450 pCO2, Arterial 38.6 >35.0 - <45.0 mm Hg pO2, Arterial 120.0 (H) 80.0 - 100.0 mm Hg HCO3, Arterial 23.4 21.0 - 25.0 mmol/L O2 Sat, Arterial 98.1 95.0 - 100.0 % Base Excess, Arterial -1.2 -3.0 - 3.0 mmol/L CO2 Total 24.6 23.0 - 27.0 mmol/L Hgb, blood gas 9.2 Screen only g/dl Source Of Oxygen Vent POCT glucose meter Collection Time: 07/28/24 4:14 AM Result Value Ref Range Glucose 148 (H) 70 - 100 mg/dL POCT glucose meter Collection Time: 07/28/24 9:38 AM Result Value Ref Range Glucose 131 (H) 70 - 100 mg/dL Since admission: Recent Labs 07/26/24 1850 07/26/24 2156 07/27/24 0246 07/27/24 0530 CKTOTAL -- -- -- 865* TROPONINI 0.013 0.014 0.017 -- Recent Labs 07/27/24 0530 ALKPHOS 66 ALT 19 AST 28 BILITOT 0.3 @BRIEFLAB([facility]) ABGs:)No results for input(s): PH, PO2, PCO2, HCO3, O2SAT in the last 72 hours. No lab exists for component: BE Cultures: Blood culture #1: No lab exists for component: BC Blood culture #2: No lab exists for component: BLOODCULT2 Antiepileptic levels: No results for input(s): PHENYTOIN, PHENOBARB, VALPROATE in the last 72 hours. No lab exists for component: CARBTOT, LAMOTRIG, KEPPRA Coagulation: No results for input(s): INR in the last 72 hours. CSF: No results for input(s): CULTURE, PROTEIN in the last 72 hours. No lab exists for component: CHARCSF, CELL COUNT, GRAM STAIN Lipids: No results for input(s): CHOL, TRIG, HDL, AMYLASE, LIPASE in the last 72 hours. No lab exists for component: LDLCHOLESTEROL HgA1c: No lab exists for component: LABA1C Radiology: cEEG Read pending Assessment and Plan: Sandy Deng is a 63 yo F with a history of COPD, DM, HLD, CKD who presented to OSH altered andis respiratory distress with shaking movements also found to have trace R temporal SDH. No intervention for SDH and will monitor. The shaking movements witnessed are not concerning for seizure clinically as they are irregular asynchronous myoclonic movements but she is profoundly encephalopathic sowill rule out nonconvulsive status. In the setting of COVID, renal failure on CRRT, and septic shock. If EEG negative and she does not improve with treatment of her critical medical illness will consider MRI # trace R SDH: Stable no follow up needed # COVID # septic shock # renal failure # DM # HLD - OK for DVT ppx - will follow cEEG - Hold AED for now - Exam improving in tandem with improvement of medical illness consistent with toxic/metabolic encephalopathy Torito Mahajan MD Neurocritical Care I spent a total of 30 minutes in my independent critical care time for this neurocritically ill patient who is at high risk for both clinical and neurological decline due to further brain injury, which can occur unpredictably and rapidly cause multi-organ dysfunction. In that time I reviewed the chart including MAR, labs, neuroimaging, other imaging studies and discussed my diagnostic impression and patient's plan of care with my TONJA/resident/fellow/student, the consulting team and patient's family members/surrogate decision makers (in cases where the patient is incapacitated and unable to participate in their own care). * Joycelyn Diaen DO - 07/28/2024 6:22 AM EDT ICU Progress Note Name: Sandy Deng : 1960(63 y.o.) Date: 07/28/24 Team: [facility] Attending: Dr. Luttman Subjective: Hospital Summary: 63 year old female with a PMHx of COPD (3L O2 baseline), DM, CKD 4, HTN, CAD, [place] (PCI with stents in 2017). at bedside. Pt was admitted to [facility] due to confusion and hallucinations. Pt has had episodes of staring off into space per family. Was found to have a subdural hematoma. She reportedly had a fall 1 month ago from bed. states she hit her head on the nightstand. She is on Plavix and ASA for a stent placed 7 years ago. Pt tested positive for COVID on 07/24. Today at [facility] ICU she had worsening hypoxia and was placed on NIV but failed. Was ultimately intubated. Noted to be hypotensive and started on levophed. Pt was transferred to [facility] for higher level of care. On arrival she was noted to have reduced urine output. Pt reportedly with CKD 4 and familystates has been told in the past she may need HD in the future. Pt has a hx of intention tremor. 07/27: Overnight, patient had dialysis catheter placed and was started on CRRT. This morning, vasopressor support is being weaned. Initial infectious workup returned with CTX-M Pseudomonas and S aureus identified on pneumonia PCR. The patient was seen and examined at bedside, is intubated sedated and mechanically ventilated and in no apparent distress. Coming down on pressor needs. Optimizing antibiotic regimen. Started insulin gtt dt history of T1DM on insulin pump. Per RN, when sedation lightened, the patient made some purposeless movements, but did not respond to requests. Interval Events: Overnight patient had episodes of agitation in which she tried to purposefully remove her ET tube. Propofol increased to 35. No urine output since johnson change. Bladder scan last night - 10cc urine - no signs of obstruction. Vitals: VSS Drips/Continuous: Fentanyl 100, Levo 3, Propofol 35, CRRT Lines/Drains: CVC triple lumen RIJ, hemodialysis cath double lumen LIJ Vent/O2: RR 20, Vt 470, FiO2 30%, PEEP 8 Diet: TF Glucerna 1.5 Parker goat rate 40 ml/hr, flushes 40cc Q4H Scheduled Meds:calcium gluconate, 2,000 mg, IntraVENous, Once dexAMETHasone, 6 mg, IntraVENous, q24h Glycopyrrolate-Formoterol, 2 puff, Inhalation, BID insulin glargine, 5 Units, SubCUTAneous, Nightly insulin regular, 0-18 Units, SubCUTAneous, q6h ipratropium-albuterol, 3 mL, Nebulization, BID meropenem, 1,000 mg, IntraVENous, q12h mupirocin, 1 Application, Nasal, BID pantoprazole (ProtoNix) 40 mg in sodium chloride (PF) 0.9 % 10 mL injection, 40 mg, IntraVENous, BID remdesivir (Veklury) 100 mg in sodium chloride 0.9 % 250 mL IVPB, 100 mg, IntraVENous, q24h Continuous Infusions:fentaNYL, 25-200 mcg/hr, Last Rate: 100 mcg/hr (07/27/242013) norepinephrine, 2-100 mcg/min, Last Rate: 3 mcg/min (07/28/24539) PrismaSol BGK 4/2.5, 750 mL/hr, Last Rate: 750 mL/hr (07/28/24553) PrismaSol BGK 4/2.5, 750 mL/hr, Last Rate: 750 mL/hr (07/28/24552) PrismaSol BGK 4/2.5, 750 mL/hr, Last Rate: 750 mL/hr (07/28/24551) propofol, 5-50 mcg/kg/min, Last Rate: 30 mcg/kg/min (07/28/24239) Objective: Last Vitals: BP MAP (!) 122/45 (07/28/24 0000) 67 (07/28/24 0000) Arterial BP MAP 136/50 (07/28/24 0600) 76 mmHg (07/28/24599) Temp 36.1 C (96.9 F) (07/28/24 0400) Pulse 71 (07/28/24 06) Resp 20 (07/28/24599) SpO2 98 % (07/28/24599) Weight 61.2 kg (134 lb 14.7 oz) (07/28/24 0500) BMI Body mass index is 21.78 kg/m . I/O: 07/27 0700 - 07/28 659 In: 2810.8 [I.V.:2421.8] Out: 2731 [Urine:73] Ventilator: Resp Rate (Set): 20 Vt (Set, mL): 470 mL FiO2 (%): 30 % PEEP/CPAP (cm H2O): 8 cm H20 Inspiratory Time (sec): 1 sec Oxygen Delivery: Invasive Lines / Tubes / Drains: CVC Triple Lumen 07/26/24 Right Internal jugular (Active) Number of days: 1 Peripheral IV Anterior;Right Forearm (Active) Number of days: Peripheral IV Right Antecubital (Active) Number of days: Urethral Catheter Straight-tip (Active) Number of days: 0 Hi-Lo Evac ETT (Active) Number of days: 2 Feeding Tube (Active) Number of days: 1 Hemodialysis Cath Double Lumen 07/27/24 Left Non-tunneled catheter Internal jugular (Active) Number of days: 1 Central Line Indication: Inadequate peripheral access despite documented ultrasound attempts AND unable to place extended dwell PIV Johnson Indications: Hourly I&Os (Critical Care ONLY) Restraints: Restraints Non-Violent Or Non-Self Destructive Jul 27, 2024 3:35 Am Edt Restraint order already placed. Order is valid for duration of episode. Wounds: Constitutional: General Appearance []WDWN [x]Obese []Cachectic []Thin []Ill Eyes: Inspection of Pupils/Irises Pupils round and react: [x]Yes []No Sclera: []Icteric [x]Non-Icteric Inspection of Conjunctiva/Lids Conjunctiva: []Injected []Non-Injected Lids: [x]Intact []Lesion Present ENT/Mouth: External Inspection of ears/nose [] Normal [] Scar/Lesion/Mass Inspection of teeth/lips/gums Dentition: [][place] Teeth []Dentures Lips/Gums: [x]Intact []Lesion Present Mucosa: [x]Pinson [x]Moist []Dry Neck: External Appearance Overall Appearance: [x]Normal []Lesion/Mass/Crepitus Present Trachea midline: [x]Yes []No Thyroid [x]Normal []Enlarged []Tender []Mass []Absent Respiratory: Respiratory effort []Labored []Non-Labored [x] Mechanically-Ventilated Auscultation []Clear [x]Crackles []Wheezes [x]Rhonchi Cardiovascular: Auscultation Rate: [x]Regular []Irregular []Tachycardia []Bradycardia Rhythm: []Regular [x]Irregular Murmur: []Present [x]Absent Extremities Peripheral Edema: []Present [x]Absent Varicosities: []Present [x]Absent Gastrointestinal: Abdomen Palpation: [x]Soft []Firm []Tender [x]Non-Tender []Distended [x]Non-distended Mass: []Present []Absent Bowel Sounds: [x]Present []Absent Hernia: []Present []Absent Liver/Spleen: []Hepatosplenomegaly []Organomegaly Absent Musculoskeletal: Inspection of Digits and Nails Cyanosis: []Present [x]Absent Clubbing: []Present [x]Absent Ischemia: []Present [x]Absent Infection: []Present [x]Absent Extremities ROCHE Equally: Except ([]RUE []RLE []LUE []LLE) Strength/Tone: Intact and Normal ([]RUE []RLE []LUE []LLE) Skin: Inspection [x]Normal []Rash []Lesion []Ulcer -Bruises present from IV sticks Palpation [x]Warm []Cool [x]Dry []Clammy []Nodules []Induration []Skin-tightening Cap-Refill: [x] <3 sec [] >3 seconds (delayed) Neurologic: GCS EYE: 1 - No eye opening GCS MOTOR: 6 - Obeys commands for movement GCS VERBAL: 1 - No response Total GCS: 8 [] Sensation grossly intact Psych: Mental Status Alert: []Yes [x] No Oriented: [x]x0 []X1 []X2 []x3 Mood/Affect []Normal []Flat []Agitated []Depressed []Anxious []Calm [x]Sedated []NAD - Agitated upon awakening [facility] within last 24 hours- BMP: Recent Labs 07/27/24 0530 07/27/24 1427 07/27/24 2114 07/28/24 0409 NA 130* 131* 131* 131* K 4.3 3.6 3.6 4.5 CL 101 102 102 104 CO2 18* 25 24 23 BUN 66* 49* 41* 34* CREATININE 4.00* 2.81* 2.18* 1.80* CALCIUM 6.5* 7.5* 7.3* 7.4* MG 2.0 -- 1.9 2.2 PHOS 6.8* 4.6* -- 3.6 LFTs: Recent Labs 07/26/24 18507/27/24 0530 07/27/24 1427 AST 40 28 -- ALT 21 19 -- PROT 5.5* 4.9* -- ALBUMIN 2.9* 2.4* 2.4* BILITOT 0.5 0.3 -- ALKPHOS 68 66 -- Glucose: Recent Labs 07/26/24184907/27/24 0150 07/27/24 0530 07/27/24 0950 07/27/24 1427 07/27/24 1506 07/27/24 1803 07/27/24 1819 07/27/24 18307/27/24201207/27/24 20407/27/24 21107/27/24 22207/27/24 2338 07/28/24 0409 07/28/24 0414 GLUCOSE 252* -- 254* -- 83 -- -- -- -- -- -- 87 -- -- 143* -- POCGLU -- < > -- < > -- < > 53* 110* 86 64* 112* -- 88 119* -- 148* < > = values in this interval not displayed. Procal: Recent Labs 07/26/241849 PROCAL 2.48* CBC: Recent Labs 07/26/24184907/26/24 22307/27/24 0530 07/27/24 0652 07/27/24 1622 07/28/24 0409 WBC 18.7* -- 14.5* -- -- 11.5* HGB 10.1* < > 8.8* < > 8.9 9.2 8.8* HCT 31.3* -- 27.2* -- -- 25.8* PLT 244 -- 186 -- -- 160 MCV 88.7 -- 88.0 -- -- 84.6 RDW 15.5* -- 15.3* -- -- 15.0 < > = values in this interval not displayed. ABGs: Recent Labs 07/27/24 1424 07/27/24 16207/28/24 0409 PHART 7.286* 7.398 7.401 KTX4MMP 52.3* 41.9 38.6 PO2ART 115.1* 100.1* 120.0* [id number] 24.4 25.3* 23.4 [id number] 30% Oxygen 30% Oxygen Vent Lactic Acid: Recent Labs 07/26/24 1850 LACTATE 0.9 INR: No results for input(s): INR in the last 72 hours. Cardiac Injury Profile: Recent Labs 07/26/24 1850 07/26/24 2156 07/27/24 0246 07/27/24 0530 CKTOTAL -- -- -- 865* TROPONINI 0.013 0.014 0.017 -- Labs in Last 3 months: Lab Results Component Value Date TSH 3.472 07/26/2024 Microbiology- Urine Cx: No results found for: URINECX Blood Cx: No results found for: BLOODCX Sputum Cx: Lab Results Component Value Date RESPCULT Culture in progress 07/27/2024 Gram Stain: Lab Results Component Value Date LABGRAM (A) 07/27/2024 Many Polymorphonuclear leukocytes per low power field LABGRAM Few Epithelial cells per low power field (A) 07/27/2024 LABGRAM Moderate Gram positive cocci (A) 07/27/2024 PNA PCR: Lab Results Component Value Date HUMANMETAPNE Not Detected 07/27/2024 COVID19: No results found for: COVID19 Legionella Ag: Lab Results Component Value Date LEGIONELLAPN Not Detected 07/27/2024 Strep Ag: No results for input(s): STREPPNEUMO in the last 72 hours. Imaging- CXR 07/27 IMPRESSION: 1. Probable small layering right basilar pleural effusion. 2. COPD changes. 3. Lines and support devices as above. 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 (HCC) Hyperlipidemia Diabetic neuropathy associated with type 1 diabetes mellitus (HCC) Assessment/Plan: Stable Small Right Temporal SDH (identified 07/26) Acute Metabolic Encephalopathy - Neurosurgery signed off as there is no intervention indicated for SDH - NCC recs/findings: - cEEG to r/o nonconvulsive status (witnessed irregular asynchronous myoclonic movements no consistent with seizure) - If EEG neg, rec MRI if she remains altered despite medical improvement and normalization of toxicand metabolic factors - As patient's encephalopathy has improved and she is able to follow commands and respond appropriately, there is no indication for MRI at this time Acute on Chronic Hypoxemic, Hypercapnic Resp Failure Septic Shock 2/2 Polymicrobial PNA COVID pos at OSH, micro testing pos for non-COVID coronavirus on admission - Cont vasopressors MAP goal >65 - Per ID stewardship, tx with mary ann for CTX-M pseudomonas coverage - Start Date: 07/27 - End Date: 08/02 - ID consult for Meropenem course - Cont Decadron x10d. End-date: 08/04 - Cont Remdesivir x5d. End-date: 07/31 UMA on CKD Stage 4, now requiring CRRT Hyponatremia - Nephro following, appreciate recs - Suspect UMA likely started as prerenal but advanced to ATN 2/2 prolonged shock - Cont trend BMPs - Hyperkalemia improving - Initial Na 125, now 131 - Cont CRRT - Minimal urine output (unclear how much urine she makes at baseline with CKD) GI Prophylaxis: Pantoprazole IV DVT Prophylaxis: SCDs Disposition: Remain in ICU Status Critical Care Time: Total critical care time caring for this patient with life threatening, unstable organ failure, including direct patient contact, management of life support systems, review of data including imaging and labs, discussions with other team members and physicians, excluding procedures. Associated attestation - Kena Heath DO - 07/28/2024 2:24 PM EDT I have personally performed a [id number] diagnostic evaluation on this patient on date of service07/28/2024. History, labs, imaging studies, and electronic medical record have been reviewed by me. This note documented by the [x]warehouse incentive selector []TONJA reflects my history, exam, and medical decision making. I have reviewed and agree with the care plan. Changes were made in the orders as necessary. ROS documentation was reviewed and negative unless otherwise stated in HPI. Additional pertinent interval history, ROS, and physical exam findings: Ms Deng seen and evaluated at bedside. Overnight patient again attempted to pull ETT when sedation lowered. Agitated, but not directable or purposeful when awake. No urine output. Remains on CRRT. Remains on vasopressor support. Assessment: Septic shock Acute hypoxic, hypercapnic respiratory failure - intubated 07/26 COVID 19 positive, outside hospital Pneumonia d/t MSSA, ESBL Pseudomonas UMA on CKD 4 - started on CRRT 07/26 Small right subdural hematoma, stable Diabetes mellitus type 1 with hyperglycemia Normocytic anemia, unclear baseline COPD Hyperlipidemia Plan: -Maintain mechanical ventilation, titrate to ABG -Vasopressor support as needed to maintain MAP >65 -Complete course remdesivir, decadron -Complete course of meropenem -Continue EEG -Appreciate nephrology recommendations regarding CRRT. Plan to continue bicarb gtt for now -Consult neuroCC, appreciate recommendations -Neurosurgery evaluated patient, no acute interventions. Plan to follow up within 2 weeks of discharge for repeat imaging. Hold Plavix until that time. -Insulin to maintain serum glucose 140-180 Total critical care time for this patient with life-threatening unstable organ failure, including direct patient contact, management of life support systems, review of data including imaging and labs, and discussions with other team members and physicians at least 41 minutes so far today, excludingprocedures. * Ledy Torres RCP - 07/28/2024 4:53 AM EDT [facility] Respiratory Care Department Progress Note Spontaneous Awakening Trial Wean Screen SpO2>/=88%: No (07/28/24451) FiO2</=50%: Yes (07/28/24451) PEEP </=8cmH2O: Yes (07/28/24451) HR <140 BPM: Yes (07/28/24451) RR </= 35 breaths/min: Yes (07/28/24451) MAP >/= 65mmHg: Yes (07/28/24451) Arterial pH >7.30: Yes (07/28/24451) Safety Screen Spontaneous Breathing Trial (SBT - RT) : Unstable on vasopressors (new drug or titration past 2 hours) (07/28/24451) Spontaneous Breathing Trial Vent Settings Vent Mode: Assist control (07/28/24429) Mandatory Type: VC+ (07/28/24429) Resp Rate (Set): 20 (07/28/24330) Vt (Set, mL): 470 mL (07/28/24330) FiO2 (%): 30 % (07/28/24429) PEEP/CPAP (cm H2O): 8 cm H20 (07/28/24330) Inspiratory Time (sec): 1 sec (07/28/24330) Vitals MAP (mmHg): 67 (07/28/24 0000) Heart Rate: 73 (07/28/24429) Resp: 20 (07/28/24429) SpO2: 96 % (07/28/24429) Suctioning/Secretions Secretion Amount: Scant (07/28/24399) Secretion Color: Mckeon (07/28/24399) Secretion Consistency: Thick (07/28/24399) ABG results Recent Labs 07/27/24 1424 07/27/24 1622 07/28/24 0409 PHART 7.286* 7.398 7.401 NTA2BIU 52.3* 41.9 38.6 PO2ART 115.1* 100.1* 120.0* [id number] 24.4 25.3* 23.4 A4ABTNSE 30% Oxygen 30% Oxygen Vent Does this patient meet criteria for termination of mechanical ventilation No - Failed Wean Screen Name of physician notified via secure chat or in person : N/A (NA if patient did not meet criteria) Comments: Thank you for involving Respiratory in the care of this patient, * Dariel Santizo MD - 07/27/2024 3:24 PM EDT SEPSIS REASSESSMENT I examined the patient 07/27/2024 8:24 AM Vital Signs:BP (!) 135/39 (BP Location: Left arm) Pulse 68 Temp 36.4 C (97.6 F) (Temporal) Resp 20 Ht 1.676 m (5' 6) Comment: per RD Epic review Wt 48 kg (105 lb 13.1 oz) SpO2 98% BMI 17.08 kg/m Cardiac examination significant for: Regular rate and rhythm Pulmonary examination significant for: Crackles Capillary refill is: brisk Peripheral Pulse is: 2+ Skin is: Normal Dariel Santizo MD Fellow, Pulmonary and Critical Care Medicine 07/27/24 3:26 PM * RENATO Kern - 07/27/2024 9:58 AM EDT Speech-Language Pathology Received orders for a speech evaluation and treat. Patient is currently intubated and unable to participate. Patient has been intubated form 07/26/24. Completed orders and await re-consult 12- 24 hours post-extubation. Montana Sahni MA [facility]-MULTIFOCAL LENS ASSEMBLER * Delmar Ling OT - 07/27/2024 8:22 AM EDT Images from the original note were not included. OCCUPATIONAL THERAPY [facility] Name/MRN: Sandy Deng ([id number]) Date: 07/27/2024 Intubated, sedated, on bed rest. Will follow. Delmar Ling OT * Jennifer Saldaña - 07/27/2024 7:30 AM EDT Images from the original note were not included. PHYSICAL THERAPY [facility] Name/MRN: Sandy Deng ([id number]) Date: 07/27/2024 Screen Note. Pt remains intubated and sedated, and on strict bed rest orders. Will continue to follow and re-attempt as able. Jennifer Saladña SPT * Dariel Santizo MD - 07/27/2024 7:08 AM EDT ICU Progress Note Name: Sandy Deng : 1960(63 y.o.) Date: 07/27/24 Team: MICU Attending: Kumar Subjective: Hospital Summary: Sandy Deng is a 63 year old female with a PMHx of COPD (3L O2 baseline), DM, CKD 4, HTN, CAD (PCI with stents in 2017). at bedside. Pt was admitted to [facility] due toconfusion and hallucinations. Pt has had episodes of staring off into space per family. Was found to have a subdural hematoma. She reportedly had a fall 1 month ago from bed. states she hit her head on the nightstand. She is on Plavix and ASA for a stent placed 7 years ago. Pt tested positive for COVID on 07/24. Today at [facility] ICU she had worsening hypoxia and was placed on NIV but failed. Was ultimately intubated. Noted to be hypotensive and started on levophed. Pt was transferred to [facility] for higher level of care. On arrival she was noted to have reduced urine output. Pt reportedly with CKD 4 and family states has been told in the past she may need HD in the future. Pt has a hx of intention tremor. Interval Events: Overnight, patient had dialysis catheter placed and was started on CRRT. This morning, vasopressor support is being weaned. Initial infectious workup returned with CTX-M Pseudomonas and S aureus identified on pneumonia PCR. The patient was seen and examined at bedside, is intubatedsedated and mechanically ventilated and in no apparent distress. Coming down on pressor needs. Optimizing antibiotic regimen. Started insulin gtt dt history of T1DM on insulin pump. Per RN, when sedation lightened, the patient made some purposeless movements, but did not respond to requests. Updated family at bedside regarding current plan of care, and answered all of their questions to the best of my ability. Scheduled Meds:azithromycin, 500 mg, IntraVENous, q24h calcium gluconate, 3,000 mg, IntraVENous, Once cefTRIAXone, 2,000 mg, IntraVENous, q24h dexAMETHasone, 6 mg, IntraVENous, q24h Glycopyrrolate-Formoterol, 2 puff, Inhalation, BID insulin glargine, 0.15 Units/kg, SubCUTAneous, Nightly insulin regular, 0-18 Units, SubCUTAneous, q6h ipratropium-albuterol, 3 mL, Nebulization, BID mupirocin, 1 Application, Nasal, BID pantoprazole (ProtoNix) 40 mg in sodium chloride (PF) 0.9 % 10 mL injection, 40 mg, IntraVENous, BID remdesivir (Veklury) 100 mg in sodium chloride 0.9 % 250 mL IVPB, 100 mg, IntraVENous, q24h Continuous Infusions:fentaNYL, 25-200 mcg/hr, Last Rate: 100 mcg/hr (07/27/24 0544) norepinephrine, 2-100 mcg/min, Last Rate: 2 mcg/min (07/27/24705) PrismaSol BGK 2/3.5, 750 mL/hr, Last Rate: 750 mL/hr (07/27/24238) PrismaSol BGK 2/3.5, 750 mL/hr, Last Rate: 750 mL/hr (07/27/24238) PrismaSol BGK 2/3.5, 750 mL/hr, Last Rate: 750 mL/hr (07/27/24238) propofol, 5-50 mcg/kg/min, Last Rate: 20 mcg/kg/min (07/27/24229) sodium bicarbonate 150 mEq in sterile water 1,000 mL infusion, 75 mL/hr, Last Rate: 75 mL/hr (07/27/24133) vasopressin, 0.01-0.03 Units/min, Last Rate: 0.03 Units/min (07/26/242244) Objective: Last Vitals: BP MAP (!) 135/39 (07/27/24 0000) 64 (07/27/24 0000) Arterial BP MAP 174/58 (07/27/24629) 96 mmHg (07/27/24629) Temp 37.3 C (99.1 F) (07/27/24 0400) Pulse 56 (07/27/24629) Resp 14 (07/27/24629) SpO2 100 % (07/27/24629) Weight 48 kg (105 lb 13.1 oz) (07/26/24 1723) BMI There is no height or weight on file to calculate BMI. I/O: 07/26 07 - 07/27 659 In: 7341 [I.V.:1711] Out: 345 [Urine:84] Ventilator: Resp Rate (Set): 14 Vt (Set, mL): 400 mL FiO2 (%): 35 % PEEP/CPAP (cm H2O): 8 cm H20 Inspiratory Time (sec): 1.1 sec Oxygen Delivery: Invasive Lines / Tubes / Drains: CVC Triple Lumen 07/26/24 Right Internal jugular (Active) Number of days: 0 Urethral Catheter (Active) Number of days: 1 Hi-Lo Evac ETT (Active) Number of days: 1 Feeding Tube (Active) Number of days: 0 Hemodialysis Cath Double Lumen 07/27/24 Left Non-tunneled catheter Internal jugular (Active) Number of days: 0 Central Line Indication: Vesicant infusions/medications at high risk of causing extravasation and Hemodialysis Johnson Indications: Hourly I&Os (Critical Care ONLY) Restraints: Restraints Non-Violent Or Non-Self Destructive Jul 27, 2024 3:35 Am Edt Restraint order already placed. Order is valid for duration of episode. Wounds: Constitutional: General Appearance []WDWN []Obese []Cachectic []Thin [x]Ill Eyes: Inspection of Pupils/Irises Pupils round and react: [x]Yes []No Sclera: []Icteric [x]Non-Icteric Inspection of Conjunctiva/Lids Conjunctiva: []Injected [x]Non-Injected Lids: [x]Intact []Lesion Present ENT/Mouth: External Inspection of ears/nose [x] Normal [] Scar/Lesion/Mass Inspection of teeth/lips/gums Dentition: [][place] Teeth []Dentures Lips/Gums: [x]Intact []Lesion Present Mucosa: [x]Pinson [x]Moist []Dry Neck: External Appearance Overall Appearance: [x]Normal []Lesion/Mass/Crepitus Present Trachea midline: [x]Yes []No Thyroid []Normal []Enlarged []Tender []Mass []Absent Respiratory: Respiratory effort []Labored []Non-Labored [x] Mechanically-Ventilated Auscultation [x]Clear []Crackles []Wheezes []Rhonchi Cardiovascular: Auscultation Rate: [x]Regular []Irregular []Tachycardia []Bradycardia Rhythm: [x]Regular []Irregular Murmur: []Present [x]Absent Extremities Peripheral Edema: []Present [x]Absent Varicosities: []Present [x]Absent Gastrointestinal: Abdomen Palpation: [x]Soft []Firm []Tender []Non-Tender []Distended [x]Non-distended Mass: []Present [x]Absent Bowel Sounds: [x]Present []Absent Hernia: []Present [x]Absent Liver/Spleen: []Hepatosplenomegaly []Organomegaly Absent Musculoskeletal: Inspection of Digits and Nails Cyanosis: []Present [x]Absent Clubbing: []Present [x]Absent Ischemia: []Present [x]Absent Infection: []Present [x]Absent Extremities ROCHE Equally: Except ([]RUE []RLE []LUE []LLE) Strength/Tone: Intact and Normal ([]RUE []RLE []LUE []LLE) Skin: Inspection [x]Normal []Rash []Lesion []Ulcer Palpation [x]Warm []Cool [x]Dry []Clammy []Nodules []Induration []Skin-tightening Cap-Refill: [x] <3 sec [] >3 seconds (delayed) Neurologic: GCS EYE: 1 - No eye opening GCS MOTOR: 1 - No motor response GCS VERBAL: 1 - No response Total GCS: 3T, but sedated [] Sensation grossly intact Psych: Mental Status Alert: []Yes [x] No Oriented: []x0 []X1 []X2 []x3 Mood/Affect []Normal []Flat []Agitated []Depressed []Anxious []Calm [x]Sedated []NAD [facility] within last 24 hours- BMP: Recent Labs 07/26/24184907/27/24 0530 NA 125* 130* K 5.5* 4.3 CL 98 101 CO2 17* 18* BUN 76* 66* CREATININE 4.56* 4.00* CALCIUM 5.5* 6.5* MG 1.5* 2.0 PHOS 8.5* 6.8* LFTs: Recent Labs 07/26/24184907/27/24 0530 AST 40 28 ALT 21 19 PROT 5.5* 4.9* ALBUMIN 2.9* 2.4* BILITOT 0.5 0.3 ALKPHOS 68 66 Glucose: Recent Labs 07/26/241849 07/27/24 0150 07/27/24 0517 07/27/24 0530 GLUCOSE 252* -- -- 254* POCGLU -- 320* 283* -- Procal: Recent Labs 07/26/24 185 PROCAL 2.48* CBC: Recent Labs 07/26/24 1850 07/26/24 2232 07/27/24 0530 07/27/24 0652 WBC 18.7* -- 14.5* -- HGB 10.1* 8.1 8.8* 9.9 HCT 31.3* -- 27.2* -- PLT 244 -- 186 -- MCV 88.7 -- 88.0 -- RDW 15.5* -- 15.3* -- ABGs: Recent Labs 07/26/24223107/27/24 0652 PHART 7.166* 7.214* CHV9BCF 30.4* 53.5* PO2ART 95.4 108.9* [id number] 10.7* 21.1 R0GHFOLD Vent Vent Lactic Acid: Recent Labs 07/26/24 185 LACTATE 0.9 INR: No results for input(s): INR in the last 72 hours. Cardiac Injury Profile: Recent Labs 07/26/24 18507/26/24 2156 07/27/24 0246 TROPONINI 0.013 0.014 0.017 Labs in Last 3 months: Lab Results Component Value Date TSH 3.472 07/26/2024 Microbiology- Urine Cx: No results found for: URINECX Blood Cx: No results found for: BLOODCX Sputum Cx: Lab Results Component Value Date RESPCULT Culture in progress 07/27/2024 Gram Stain: Lab Results Component Value Date LABGRAM (A) 07/27/2024 Many Polymorphonuclear leukocytes per low power field LABGRAM Few Epithelial cells per low power field (A) 07/27/2024 LABGRAM Moderate Gram positive cocci (A) 07/27/2024 PNA PCR: Lab Results Component Value Date HUMANMETAPNE Not Detected 07/27/2024 COVID19: No results found for: COVID19 Legionella Ag: Lab Results Component Value Date LEGIONELLAPN Not Detected 07/27/2024 Strep Ag: No results for input(s): STREPPNEUMO in the last 72 hours. Imaging- CXR 07/27 IMPRESSION: 1. Probable small layering right basilar pleural effusion. 2. COPD changes. 3. Lines and support devices as above. 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 (HCC) Hyperlipidemia Diabetic neuropathy associated with type 1 diabetes mellitus (HCC) Assessment: Acute on chronic hypoxemic, hypercapneic respiratory failure Polymicrobial PNA c/b septic shock COVID-19 + at OSH, here just positive for non-COVID coronavirus Acute metabolic encephalopathy Small R subacute SDH Severe NAGMA UMA on CKD, now requiring CRRT T1DM Hx COPD, HTN, HLD Plan: Continue mechanical ventilation, mech vent bundle Daily SAT/SBT COVID management with decadron x10d and remdesivir x5d Per ID stewardship, escalated to meropenem for CTX-M pseudomonas coverage, plan 7 day total abx duration NCC consult for recent history of tremor/seizure-like activity Maintain vasopressors for MAP>65. OK to discontinue vasopressin as norepinephrine dose very low Start hyperglycemia protocol insulin gtt in setting of dexamethasone and impending tube feeds Appreciate nephrology recommendations and CRRT start dt acidemia Monitor electrolytes, replace with CRRT Consult nutrition therapy for TF recs NSGY recommends OP follow up for re-imaging of small subacute SDH GI Prophylaxis: Pantoprazole IV DVT Prophylaxis: SCDs Disposition: Remain in ICU Status Critical Care Time: 35 Total critical care time caring for this patient with life threatening, unstable organ failure, including direct patient contact, management of life support systems, review of data including imaging and labs, discussions with other team members and physicians, excluding procedures. Associated attestation - Kena Heath DO - 07/27/2024 3:24 PM EDT I have personally performed a [id number] diagnostic evaluation on this patient on date of service07/27/2024. History, labs, imaging studies, and electronic medical record have been reviewed by me. This note documented by the [x]warehouse incentive selector []TONJA reflects my history, exam, and medical decision making. I have reviewed and agree with the care plan. Changes were made in the orders as necessary. ROS documentation was reviewed and negative unless otherwise stated in HPI. Additional pertinent interval history, ROS, and physical exam findings: Ms Deng seen and evaluated at bedside. Started on CRRT overnight. Heavily sedated this morning onmy examination. Reportedly attempted to pull ETT overnight prompting increase in sedation. Assessment: Septic shock Acute hypoxic, hypercapnic respiratory failure - intubated COVID 19 positive, outside hospital Pneumonia d/t MSSA, ESBL Pseudomonas UMA on CKD 4 - started on CRRT 07/26 NAGMA Small right subdural hematoma, stable Diabetes mellitus type 1 with hyperglycemia Normocytic anemia, unclear baseline COPD Hyperlipidemia Plan: -Maintain mechanical ventilation, titrate to ABG -Vasopressor support as needed to maintain MAP >65 -Complete course remdesivir, decadron -Escalate antibiotics to meropenem -Renal US ordered, showed bilateral atrophic kidneys consistent with medical renal disease -Appreciate nephrology recommendations regarding CRRT. Plan to continue bicarb gtt for now -Consult neuroCC for possible EEG -Neurosurgery evaluated patient, no acute interventions. Plan to follow up within 2 weeks of discharge for repeat imaging. Hold Plavix until that time. -Insulin to maintain serum glucose 140-180, will initiate insulin gtt Total critical care time for this patient with life-threatening unstable organ failure, including direct patient contact, management of life support systems, review of data including imaging and labs, and discussions with other team members and physicians at least 41 minutes so far today, excludingprocedures. * Clara Mayes DO - 07/27/2024 6:26 AM EDT Images from the original note were not included. SICU Trauma Daily Progress Note ADMIT DATE: 07/26/2024 TODAY'S DATE: 07/27/2024 HPI: 63F with multiple medical co-morbidities including Type I DM, COPD on 4L home O2, CKD, on ASA/Plavix who initially presented to [facility] on 07/23 with acute respiratory distress and acutedelirium. She was found to be hypoxic and hypercarbic, and COVID positive. She continued to be delirious and did not tolerate NIV, and today required intubation. A CT head was done to evaluate her altered mental status, and she was found to have a small acute right sided SDH vs. epidural hematoma. For this reason, [facility] wa consulted for further neurologic management and she was transferred to SICU on 07/26. LAST 24 HOURS: -Started on CRRT last night -Went as high was 30 of levophed before adding vasopressin -Nurse states patient will wake up and try to pull at vent, but does not follow command SUBJECTIVE : Patient intubated and sedated. ROS: Noted above unless otherwise mentioned OBJECTIVE: VITALS: Temp: [36.6 C (97.8 F)-36.7 C (98.1 F)] 36.7 C (98.1 F) Heart Rate: [57-84] 59 Resp: [13-20] 14 BP: (95-159)/(35-125) 135/39 Arterial Line BP 1: (105-181)/(38-87) 180/60 FiO2 (%): [35 %-40 %] 35 % INTAKE/OUTPUT: Intake/Output Summary (Last 24 hours) at 07/27/2024 0626 Last data filed at 07/27/2024 0600 Gross per 24 hour Intake 2531 ml Output 345 ml Net 2186 ml I/O last 3 completed shifts: In: - (0 mL/kg) Out: 24 (0.5 mL/kg) [Urine:24 (0 mL/kg/hr)] Weight: 48 kg I/O this shift: In: 2531 [I.V.:2531] Out: 321 [Urine:60] PHYSICAL EXAM: Gen: NAD, intubated and sedated Heart: well perfused, HR and BP stable Lungs: coarse respirations on vent Abd: soft, non tender, non distended. Non rigid. Ext: no c/c/e no gross deformities Skin: warm, well perfused, no obvious rashes, cellulitis or gross discoloration LABS CBC: Auto WBC Date Value Ref Range Status 07/27/2024 14.5 (H) 3.6 - 10.7 10*3/uL Final 07/26/2024 18.7 (H) 3.6 - 10.7 10*3/uL Final Hgb, blood gas Date Value Ref Range Status 07/26/2024 8.1 Screen only g/dl Final Hemoglobin Date Value Ref Range Status 07/27/2024 8.8 (L) 11.7 - 16.0 g/dL Final 07/26/2024 10.1 (L) 11.7 - 16.0 g/dL Final Platelets Date Value Ref Range Status 07/27/2024 186 140 - 440 10*3/uL Final 07/26/2024 244 140 - 440 10*3/uL Final BMP: SODIUM Date Value Ref Range Status 07/26/2024 125 (L) 135 - 145 mmol/L Final POTASSIUM Date Value Ref Range Status 07/26/2024 5.5 (H) 3.5 - 5.1 mmol/L Final CHLORIDE Date Value Ref Range Status 07/26/2024 98 98 - 107 mmol/L Final CARBON DIOXIDE Date Value Ref Range Status 07/26/2024 17 (L) 22 - 30 mmol/L Final UREA NITROGEN Date Value Ref Range Status 07/26/2024 76 (H) 7 - 17 mg/dL Final CREATININE Date Value Ref Range Status 07/26/2024 4.56 (H) 0.52 - 1.04 mg/dL Final Hepatic: AST (SGOT) Date Value Ref Range Status 07/26/2024 40 15 - 46 U/L Final ALT Date Value Ref Range Status 07/26/2024 21 0 - 34 U/L Final ALBUMIN Date Value Ref Range Status 07/26/2024 2.9 (L) 3.5 - 5.0 g/dL Final BILIRUBIN, TOTAL Date Value Ref Range Status 07/26/2024 0.5 0.2 - 1.3 mg/dL Final ALKALINE PHOSPHATASE Date Value Ref Range Status 07/26/2024 68 38 - 126 U/L Final Current Inpatient Medications Scheduled Meds:azithromycin, 500 mg, IntraVENous, q24h cefTRIAXone, 2,000 mg, IntraVENous, q24h dexAMETHasone, 6 mg, IntraVENous, q24h Glycopyrrolate-Formoterol, 2 puff, Inhalation, BID insulin glargine, 0.15 Units/kg, SubCUTAneous, Nightly insulin regular, 0-18 Units, SubCUTAneous, q6h ipratropium-albuterol, 3 mL, Nebulization, BID mupirocin, 1 Application, Nasal, BID pantoprazole (ProtoNix) 40 mg in sodium chloride (PF) 0.9 % 10 mL injection, 40 mg, IntraVENous, BID remdesivir (Veklury) 100 mg in sodium chloride 0.9 % 250 mL IVPB, 100 mg, IntraVENous, q24h Continuous Infusions:fentaNYL, 25-200 mcg/hr, Last Rate: 100 mcg/hr (07/27/24 0544) norepinephrine, 2-100 mcg/min, Last Rate: 6 mcg/min (07/27/24 0550) PrismaSol BGK 2/3.5, 750 mL/hr, Last Rate: 750 mL/hr (07/27/24238) PrismaSol BGK 2/3.5, 750 mL/hr, Last Rate: 750 mL/hr (07/27/24238) PrismaSol BGK 2/3.5, 750 mL/hr, Last Rate: 750 mL/hr (07/27/24238) propofol, 5-50 mcg/kg/min, Last Rate: 20 mcg/kg/min (07/27/24229) sodium bicarbonate 150 mEq in sterile water 1,000 mL infusion, 75 mL/hr, Last Rate: 75 mL/hr (07/27/24 0134) vasopressin, 0.01-0.03 Units/min, Last Rate: 0.03 Units/min (07/26/242244) PRN Meds:PRN medications: dextrose, dextrose, glucagon (rDNA), glucose, hydrALAZINE, labetalol, naloxone, ondansetron ODT OR ondansetron, polyethylene glycol (PEG) 3350, sodium chloride, sodium chloride ASSESSMENT AND PLAN: 63 y.o. female s/p presented to [place] ED with confusion since the prior night and was found to beCOVID positive, hypercarbic, hypocalcemic, and hyperkalemic with a subdural hematoma. She was intubated for respiratory failure and transferred for a trauma evaluation. -Prior CT images in Pacs from OSH - CT head on 07/27 revealed a stable tiny right subdural hematoma about the right temporal lobe measuring the 3 mm in maximal thickness and up to 1.6 cm AP by 1.8 cm - CT spine on 07/27 with no cervical spine fracture -Will defer head CT this AM seeing as she is currently on CRRT-- two stable head CT since original imaging -Neurosurgery consulted, appreciate recs -Seizure ppx: Not indicated -Elevate HOB 30 degrees -Neuro checks q4 hr -Intubated and sedated on 75 mcg/hr fentanyl and 15 mcg/kg/min propofol -Currently on levophed 7 mcg/min and vasopressin off - Diet: NPO with sodium bicarbonate 75 mL/hr - SCD's. No current DVT prophylaxis due to acute head bleed -Will sign off at this time - Dispo: Rest of care per MICU team Discussed with Dr. 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 I personally discussed the review of systemsand interviewed the patient along with performing a physical examination. I reviewed the recent events, imaging, labs, vital signs. In addition, I discussed the patient's condition and treatment options with him/her when possible. I have also reviewed and agree with the past medical, family, and social history unless otherwise noted. All of the patient's questions were answered and family updatedwhen appropriate and possible. A complete review of systems was obtained and is negative except as stated in HPI and/or SubjectiveSection. -as per Dr. Mayes' note -I evaluated patient on 07/27/24 -Chief Complaint/Reason for Consult: history of multiple falls, SDH -patient admitted yesterday after transfer from [place] with hypoxic respiratory failure, known COPD hx, COVID, and found to have SDH -SDH was small, and overall not significant compared to her other active medical problems...her care was transferred to the MICU Service -Neurosurgery and NCC consulted, no intervention for SDH per Neurosurgery, CT head is stable -no concern for additional injury from Trauma standpoint -please call with questions or new concerns Total Care Time throughout the day today was >= 50 minutes (including chart/data review/analysis, care coordination, and usgj-wy-dzce encounter), and was spent discussing/counseling the patient/family regarding the care plan for Sandy Deng. I examined the patient independently. I reviewed relevant data myself and may have also done so in the context of team rounds. A full chart review was performed. Level of Medical Decision Making: [x]High []Moderate []Low Complexity: [x]Acute or chronic illness/injury posing a threat to life or bodily function without treatment (HIGH) []Chronic illness with severe exacerbation, progression, or side effect of treatment (HIGH) []Chronic illness with mild to moderate exacerbation, progression, or side effect of treatment (MOD) []Previously undiagnosed (new) problem with uncertain prognosis (MOD) []Acute illness with systemic symptoms (MOD) []Acute, complicated injury (MOD) []Multiple stable chronic illnesses (MOD) Risk: [x]Parental controlled substances (HIGH) []Decision not to resuscitate or to de-escalate care because of poor prognosis (HIGH) []Decision regarding major surgery with identified patient or procedure risk factors (HIGH) []Decision regarding emergency surgery (HIGH) [x]Drug or treatment/therapy requiring intensive monitoring (HIGH) []Prescription drug management (MOD) []Decision regarding surgery with identified patient or procedure risk factors (MOD) []Diagnosis or treatment significantly limited by social determinants of health (MOD) Personally Reviewed/Independently interpreted patient's: [x]Epic notes [x]Radiology studies [x]Labs []EKG []Ordering tests []Other Discussed/ With: [x]Patient/Family []RN [x]Consultants [x]Primary Team []SW/TCC []Other Time was spent: -Reviewing the medical record, including recent tests and results -Ordering prescription medications/tests and procedures -Communicating results to the patient/family/caregiver -Counseling/educating the patient/family/caregiver -Documenting clinical information in the patient's electronic record -Co-ordination of care for the patient -Performing a medically appropriate exam and evaluation Michael Holbrook MD, [facility] Trauma, Surgical Critical Care, & Acute Care Surgery Department of Surgery [facility] Pager: [phone] ~~~~~~~~~~~~~~~~~~~~~~~~~~~~~~~~~~~~~~~~~~~~~~~~~~~~~~~~~~~~~ This note may have been dictated using [employer] Medical Practice Edition 2.6 and/or [employer] Voice Recognition Feature. The document was proofread; however, unrecognized voice recognition lard bleacher errors may be present. * Joni Monson MD - 07/27/2024 1:44 AM EDT Contacted by primary team for CRRT needs due to acidosis. Mrs. Deng is a 63 year old female with PMH of CKD, type 1 DM, COPD, initially presentingwith resp distress and delirium, found to be hypoxic and hypercarbic, Covid positive. She was eventually intubated. CT head showed a small right sided SDH vs epidural hematoma and patient was transferred to [facility]. She was placed on levophed. She is currently oligoanuric. Vasc cath placed. Currently on bicarb gtt. Latest labs showed Na 125 K 5.5 bicarb 17 BUN 76 creat 4.56 Ca 5.5 (calcium chloride ordered) phosp8.5 WBC 18.7 Hgb 10.1. ABG with pH of 7.156 pCO2 of 30. CRRT orders placed (2 K baths, 750 ml/hr blood flow), will watch Na correction with CRRT. Check ionized Ca. Full consultation to follow in am. Please call with any questions. Joni Monson MD [facility] Office phone: [phone] Office fax: [phone] 07/27/2024 documented in this [facility]10-08-2024 Miscellaneous Notes* Care Coordination - Otilia Arellano RN - 08/10/2024 11:38 AM EDT Active with sonographer brenna ext [phone] per , tcc called left VM regarding discharge plan. At today [facility] at bedside aware and agree to plan .. * Care Coordination - Unknown Case Management - 08/10/2024 10:00 AM EDT Patient Choice Patient Name: SANDY DENG Date of : 1960 All Providers Sent Referral Name: [facility] Address: [address] [place] [address] [address]: [facility] Phone: [phone] Address: [address] [place] [address] Name: [facility] Phone: [phone] Address: [address] [place] [address] Name: [facility] Address: [address] [place] [address] Name: [facility] Address: [address] [place] [address] Name: [facility] Phone: [phone] Address: [address] [id number] * Care Coordination - SAPNA Richards - 08/10/2024 9:59 AM EDT Transportation set via cot through [employer] for today 08-10-24 @2pm to [facility]. ROSALINE, RN, Communications Billing Analyst, facility, Pt, and Pt's Jose notified. * Care Coordination - Kimberlee Valdovinos - 08/10/2024 8:14 AM EDT Discharge med list transmitted to REHAB- [facility] via [facility]port per TCC request. * Care Coordination - Otilia Arellano RN - 08/10/2024 6:15 AM EDT She is approved 08/09-08/16 to [facility], [facility] to send mar today . Med team notified of auth and need discharge orders . Done. SW to arrange transport today . * Care Plan - Joycelyn Welch RN - 08/10/2024 4:32 AM EDT Problem: Knowledge Deficit Goal: Patient/family/caregiver demonstrates understanding of disease process, treatment plan, medications, and discharge instructions Outcome: Progressing Problem: Potential for Compromised Skin Integrity Goal: Skin Integrity is Maintained or Improved Outcome: Progressing Goal: Nutritional status is improving Outcome: Progressing Problem: Urinary Incontinence Goal: Perineal skin integrity is maintained or improved Outcome: Progressing Problem: Problem Interventions Goal: Assess Nutritional Intake Outcome: Progressing * Care Coordination - Otilia Arellano RN - 08/09/2024 1:32 PM EDT Tcc met with , aware [facility] accepted , and auth has been submitted, tcc portion of chelo done . Need attending done , notified tx team . he stated she has been to HD class at [facility] . And that is the out pt center foc. Confirmed auth started with [facility] . HD . Ongoing for now , again hopingfor recovery . * Care Plan - Blue Middleton RN - 08/09/2024 12:27 PM EDT The patient is Moderately Stable - Low risk of patient condition declining or worsening The patient's goals for the shift include remain safe The clinical goals for the shift include pt safety and rest Over the shift, the patient did make progress toward the following goals. Barriers to progression include none. Recommendations to address these barriers include none. Problem: Knowledge Deficit Goal: Patient/family/caregiver demonstrates understanding of disease process, treatment plan, medications, and discharge instructions Outcome: Progressing Problem: Potential for Compromised Skin Integrity Goal: Skin Integrity is Maintained or Improved Outcome: Progressing Goal: Nutritional status is improving Outcome: Progressing Problem: Urinary Incontinence Goal: Perineal skin integrity is maintained or improved Outcome: Progressing * Care Coordination - Otilia Arellano RN - 08/09/2024 9:48 AM EDT Need accepting rehab center- tcc messaged to [facility] and [facility] and [facility] to see who can accept . PT/OT notes done, can submit for auth , UMA with tunneled line- will again discus with family - SNF options sent as well however they prefer acute rehab if able . * Care Plan - Joycelyn Welch RN - 08/09/2024 5:43 AM EDT Problem: Knowledge Deficit Goal: Patient/family/caregiver demonstrates understanding of disease process, treatment plan, medications, and discharge instructions Outcome: Progressing Problem: Potential for Compromised Skin Integrity Goal: Skin Integrity is Maintained or Improved Outcome: Progressing Goal: Nutritional status is improving Outcome: Progressing Problem: Urinary Incontinence Goal: Perineal skin integrity is maintained or improved Outcome: Progressing * Care Plan - Blue Middleton RN - 08/08/2024 10:43 AM EDT The patient is Moderately Stable - Low risk of patient condition declining or worsening The patient's goals for the shift include remain safe The clinical goals for the shift include pt safety and rest Over the shift, the patient did make progress toward the following goals. Barriers to progression include none. Recommendations to address these barriers include none. Problem: Knowledge Deficit Goal: Patient/family/caregiver demonstrates understanding of disease process, treatment plan, medications, and discharge instructions Outcome: Progressing Problem: Potential for Compromised Skin Integrity Goal: Skin Integrity is Maintained or Improved Outcome: Progressing Goal: Nutritional status is improving Outcome: Progressing Problem: Urinary Incontinence Goal: Perineal skin integrity is maintained or improved Outcome: Progressing * Care Plan - Gloria Vides RN - 08/08/2024 4:24 AM EDT Problem: Knowledge Deficit Goal: Patient/family/caregiver demonstrates understanding of disease process, treatment plan, medications, and discharge instructions Outcome: Progressing Problem: Potential for Compromised Skin Integrity Goal: Skin Integrity is Maintained or Improved Outcome: Progressing Goal: Nutritional status is improving Outcome: Progressing Problem: Urinary Incontinence Goal: Perineal skin integrity is maintained or improved Outcome: Progressing * Care Plan - Blue Middleton RN - 08/07/2024 11:06 AM EDT The patient is Moderately Stable - Low risk of patient condition declining or worsening The patient's goals for the shift include remain safe The clinical goals for the shift include pt safety and rest Over the shift, the patient did make progress toward the following goals. Barriers to progression include none. Recommendations to address these barriers include none. Problem: Knowledge Deficit Goal: Patient/family/caregiver demonstrates understanding of disease process, treatment plan, medications, and discharge instructions Outcome: Progressing Problem: Potential for Compromised Skin Integrity Goal: Skin Integrity is Maintained or Improved Outcome: Progressing Goal: Nutritional status is improving Outcome: Progressing Problem: Urinary Incontinence Goal: Perineal skin integrity is maintained or improved Outcome: Progressing * Care Plan - Gloria Vides RN - 08/07/2024 4:43 AM EDT Problem: Knowledge Deficit Goal: Patient/family/caregiver demonstrates understanding of disease process, treatment plan, medications, and discharge instructions Outcome: Progressing Problem: Potential for Compromised Skin Integrity Goal: Skin Integrity is Maintained or Improved Outcome: Progressing Goal: Nutritional status is improving Outcome: Progressing Problem: Urinary Incontinence Goal: Perineal skin integrity is maintained or improved Outcome: Progressing * Care Plan - Christy Mckeon RN - 08/06/2024 6:30 PM EDT The patient is Moderately Stable - Low risk of patient condition declining or worsening The patient's goals for the shift include The clinical goals for the shift include * Care Coordination - Otilia Arellano RN - 08/06/2024 12:10 PM EDT Per nephro - UMA. Hope to recover . Line is tunneled . Nephrology updated on plans to work on out pt and placement . * Care Coordination - Otilia Arellano RN - 08/06/2024 12:01 PM EDT Tcc met with , new lists given and reviewed , he is aware [facility] HD beds are tight and may not be an option , takes him [address] here from home, he is retired so he can be home with her 26/05 and has good support. She no longer drives, he is aware we have sent more SNF and IPR referrals for HD.MMO and snf . He verbalized understanding of the process. IF she progresses to home and is safe he will do HHC and tcc can set up out pt HD , will try for [facility], did not prefer days anything will work but just not early AM as she is to a morning person . Messaged to nephrologyto confirm UMA, and tunneled line access. Tcc cont to work on this . * Care Plan - Christy Mckeon RN - 08/06/2024 10:46 AM EDT Problem: Knowledge Deficit Goal: Patient/family/caregiver demonstrates understanding of disease process, treatment plan, medications, and discharge instructions Outcome: Progressing Problem: Potential for Compromised Skin Integrity Goal: Skin Integrity is Maintained or Improved Outcome: Progressing Goal: Nutritional status is improving Outcome: Progressing * Care Coordination - Kimberlee Valdovinos - 08/06/2024 8:29 AM EDT Referral placed to [facility] via Careport per TCC request. Referral placed to [facility] via [facility]port per TCC request. Await review and response regarding ability to accept. TCC notified. * Care Coordination - Otilia Arellano RN - 08/06/2024 6:50 AM EDT Transfer from [facility], complex discharge, need HD, recent covid, per PT/OT need rehab, live in [place], ready for discharge soon, not today , getting transfused, new HD, MMO list and new referrals sent toSNF with [facility] and IPR within 50 miles not many options due to the constraints of needs and in surance, will need acceptance, auth and HD auth . At this time foc was [facility] NOT an option as NO HD beds available and not set up incommunity to transport to and too far as she lives in [facility], will get lists to bedside and TCC did sent mass referral - weekend tcc to follow or therapy and acceptance options . Cont to follow , tcc will update the family as able . * Care Coordination - Shaniqua Parker RN - 08/06/2024 5:54 AM EDT Care Management Progress Note Chart reviewed. Patient admitted to [facility] ICU for SDH 07/26/2024. Consults to IP CONSULT TO NEUROSURGERY IP CONSULT TO NEUROLOGY IP CONSULT TO NEPHROLOGY IP CONSULT TO DIETITIAN IP WOUND CARE NURSE CONSULT TO EVAL Discharge Planning/Barriers: HDC - tunneled. iHD - T, TH, S. PT/OT recs noted. Late entry note from 08/05/24 - CM requested to start facility auth if able 08/05. [facility] per secure chat we are back to not having a dialysis bed available. you should likely make other plans for her. CM explained by [facility] liaison, not willing to start auth until HD bed available. CM notes that [facility] IPR nor [facility] IPR have in house HD. Patient was hoping to have IPRwith in house HD. CM will discuss with patient, as able, for other options than IPR at [facility]. [place] and [facility] are locations not yet offered/confirmed if they have HD beds available. Discharge Plan: IPR vs SNF. Awaiting additional facility choices/discussion, clinical stability and medical clearance. Will continue to follow with [facility]. Length of Stay (Days): 11 GMLOS: 5.1 * Care Plan - Gloria Vides RN - 08/06/2024 3:52 AM EDT Problem: Knowledge Deficit Goal: Patient/family/caregiver demonstrates understanding of disease process, treatment plan, medications, and discharge instructions Outcome: Progressing Problem: Potential for Compromised Skin Integrity Goal: Skin Integrity is Maintained or Improved Outcome: Progressing Goal: Nutritional status is improving Outcome: Progressing Problem: Urinary Incontinence Goal: Perineal skin integrity is maintained or improved Outcome: Progressing * Care Coordination - Shaniqua Parker RN - 08/05/2024 8:47 AM EDT CM requested PT/OT to see today via see today tool to start auth. * Care Plan - Annika Caro RN - 08/04/2024 5:25 PM EDT Problem: Knowledge Deficit Goal: Patient/family/caregiver demonstrates understanding of disease process, treatment plan, medications, and discharge instructions Outcome: Progressing Problem: Potential for Compromised Skin Integrity Goal: Skin Integrity is Maintained or Improved Outcome: Progressing Goal: Nutritional status is improving Outcome: Progressing * Care Coordination - Shaniqua Parker RN - 08/04/2024 11:41 AM EDT Care Management Progress Note Chart reviewed. Patient admitted to [facility] ICU for SDH 07/26/2024. Consults to IP CONSULT TO NEUROSURGERY IP CONSULT TO NEUROLOGY IP CONSULT TO NEPHROLOGY IP CONSULT TO DIETITIAN IP WOUND CARE NURSE CONSULT TO EVAL Discharge Planning/Barriers: HDC - tunneled. iHD - T, TH, S. PT/OT recs noted. CM spoke with patient at bedside. Re-introduced myself and role. Discussed discharge planning. [facility] does not have inpatient diaylsis. Patient would prefer to participate in IPR at [facility] where IPHD is available. CM updated facilities. Discharge Plan: [facility]. Awaiting OT eval, facility precert, clinical stability and medical clearance. Will continue to follow with [facility]. Length of Stay (Days): 9 GMLOS: 5.1 * Care Coordination - Shilo Bose - 08/03/2024 2:05 PM EDT Referral placed to Rehab - [facility] via Careport per TCC request. Await review and response regarding ability to accept. TCC notified. * Care Coordination - Shaniqua Parker RN - 08/03/2024 1:53 PM EDT Care Management Progress Note Chart reviewed. Patient admitted to [facility] ICU for SDH 07/26/2024. Consults to IP CONSULT TO NEUROSURGERY IP CONSULT TO NEUROLOGY IP CONSULT TO NEPHROLOGY IP CONSULT TO DIETITIAN IP WOUND CARE NURSE CONSULT TO EVAL Discharge Planning/Barriers: HDC - tunneled. iHD - T, TH, S - trial today per nephrology notes. PT/OT recs noted. CM spoke with patient at bedside. Introduced myself and role. Patient answered orientation questions appropriately. CM discussed discharge planning with patient. Patient agreeable to rehab at discharge. CM tasked [facility] to send referrals to [facility] and [facility] for IPR and iHD. Discharge Plan: [facility] and [facility]. Awaiting facility acceptance, facility precert, clinical stability and medical clearance. Will continue to follow with [facility]. Length of Stay (Days): 8 GMLOS: 5.1 * Care Coordination - Simone Momin DO - 08/02/2024 1:13 PM EDT ICU Transfer Checklist Transfer Med Reconciliation (resume home meds if able, convert to PO if able) Complete Antibiotics (name, indication, duration, convert to PO if able) Yes, addressed in today's progress note Steroid (indication, duration, convert to PO if able) Yes, addressed in today's progress note Anticipated [place] Medications (ICU initiated) or Dose Changes and Indication No Permanently Discontinued Home Medications and Reason for medication contraindication Recommend cardiology f/u to discuss DAPT. Pt had stent 7 years ago and is on Plavix and ASA at home Johnson Catheter (please remove if able. Note: place DC order) Yes, indication output management Central Line (please remove if able. Note: place DC order) Yes, indication HD Transfer Discussed with: Dr. Torres Smith Attending Dr. Marley If additional questions for ICU team within 24 hours of ICU transfer, page ICU [place] [facility] for clarifications. * Care Coordination - Shaniqua Parker RN - 08/02/2024 10:33 AM EDT Images from the original note were not included. Care Management Progress Note Chart reviewed. Patient admitted to [facility] ICU for SDH 07/26/2024. Consults to IP CONSULT TO NEUROSURGERY IP CONSULT TO NEUROLOGY IP CONSULT TO NEPHROLOGY IP CONSULT TO DIETITIAN IP WOUND CARE NURSE CONSULT TO EVAL Discharge Planning/Barriers: Out of isolation. 2LNC. TLC CVC. HDC. Trial iHD pending per nephrology notes. Johnson. IVABX. PT/OT pending. Discharge Plan: TBD. Awaiting clinical stability and medical clearance. Will [facility] to follow with [facility] Discharge Milestones and Delays Expected date/time: 08/06/2024 Anticipated medical readiness: 5+ Days Discharge Milestones Place discharge order Complete med reconciliation Case mgmt discharge readiness Clinical Stability Diagnostic Workup Patient Education Complete Expected Discharge History Expected Date/Time Set By Reviewed At 08/06/2024 Shaniqua Parker RN 08/02/2024 8:19 AM 08/04/2024 Shaniqua Parker RN 07/30/2024 8:30 AM 08/04/2024 Shaniqua Parker RN 07/29/2024 8:36 AM 08/04/2024 Shaniqua Parker RN 07/29/2024 7:34 AM 08/04/2024 Shaniqua Parker RN 07/28/2024 8:21 AM 07/30/2024 Shaniqua Parker RN 07/27/2024 7:48 AM 07/30/2024 Clara Mayes DO 07/26/2024 5:12 PM Length of Stay (Days): 7 GMLOS: No GMLOS Documented * Care Plan - Truman Quezada RN - 08/01/2024 6:33 PM EDT The patient is Moderately Stable - Low risk of patient condition declining or worsening The patient's goals for the shift include more rest The clinical goals for the shift include advancing diet, completing CRRT treatment Over the shift, the patient did not make progress toward the following goals. Barriers to progression include patient has not wanted to eat or drink a single thing. Primary aware of nutritional intake. Recommendations to address these barriers include ng tube/enteral feeding. * Care Plan - Truman Quezada RN - 07/31/2024 6:44 PM EDT Problem: Knowledge Deficit Goal: Patient/family/caregiver demonstrates understanding of disease process, treatment plan, medications, and discharge instructions Outcome: Progressing Problem: Potential for Compromised Skin Integrity Goal: Skin Integrity is Maintained or Improved Outcome: Progressing Goal: Nutritional status is improving Outcome: Progressing Problem: Urinary Incontinence Goal: Perineal skin integrity is maintained or improved Outcome: Progressing * Care Coordination - Shaniqua Parker RN - 07/30/2024 10:26 AM EDT Images from the original note were not included. Care Management Progress Note Chart reviewed. Patient admitted to [facility] ICU for SDH 07/26/2024. Consults to IP CONSULT TO NEUROSURGERY IP CONSULT TO NEUROLOGY IP CONSULT TO NEPHROLOGY IP CONSULT TO DIETITIAN IP WOUND CARE NURSE CONSULT TO EVAL Discharge Planning/Barriers: Isolation Droplet plus. +C19. Review date 07/31. Intubated/sedated. Art line. TLC CVC. HDC. CRRT. N/OGT. Johnson. IV qtt - levophed PT/OT pending. Discharge Plan: TBD. Awaiting clinical stability and medical clearance. Will continue to follow with [facility] Discharge Milestones and Delays Expected date/time: 08/04/2024 Anticipated medical readiness: 5+ Days Discharge Milestones Place discharge order Complete med reconciliation Case mgmt discharge readiness Clinical Stability Diagnostic Workup Patient Education Complete Expected Discharge History Expected Date/Time Set By Reviewed At 08/04/2024 Shaniqua Parker RN 07/30/2024 8:30 AM 08/04/2024 Shaniqua Pakrer RN 07/29/2024 8:36 AM 08/04/2024 Shaniqua Parker RN 07/29/2024 7:34 AM 08/04/2024 Shaniqua Parker RN 07/28/2024 8:21 AM 07/30/2024 Shaniqua Parker RN 07/27/2024 7:48 AM 07/30/2024 Clara Mayes DO 07/26/2024 5:12 PM Length of Stay (Days): 4 GMLOS: No GMLOS Documented * Care Plan - Calixto Lal RN - 07/30/2024 5:09 AM EDT The patient is Moderately Unstable - Medium risk of patient condition declining or worsening The patient's goals for the shift include safety The clinical goals for the shift include hemodynamic stability Over the shift, the patient did not make progress toward the following goals. Barriers to progression include need for vasopressors. Recommendations to address these barriers include wean levo. * Care Plan - Carie Arce RN - 07/29/2024 6:28 AM EDT The patient is Moderately Unstable - Medium risk of patient condition declining or worsening The patient's goals for the shift include safety. The clinical goals for the shift include hemodynamic stability. Over the shift, the patient did not make progress toward the following goals. Barriers to progression include necessity of vasopressors. Recommendations to address these barriers include wean levo. * Care Coordination - Shaniqua Parker RN - 07/28/2024 11:43 AM EDT Images from the original note were not included. Care Management Progress Note Chart reviewed. Patient admitted to [facility] ICU for SDH 07/26/2024. Consults to IP CONSULT TO NEUROSURGERY IP CONSULT TO NEUROLOGY IP CONSULT TO NEPHROLOGY IP CONSULT TO DIETITIAN Discharge Planning/Barriers: Isolation Droplet. cEEG. Intubated/sedated. TLC CVC. HDC. CRRT. N/OGT. TF. Johnson. IV qtt - levophed, Discharge Plan: TBD. Awaiting clinical stability and medical clearance. Will continue to follow with [facility] Discharge Milestones and Delays Expected date/time: 08/04/[address] discharge order Complete med reconciliation Case mgmt discharge readiness Clinical Stability Diagnostic Workup Patient Education Complete Expected Discharge History Expected Date/Time Set By Reviewed At 08/04/2024 Shaniqua Parker RN 07/28/2024 8:21 AM 07/30/2024 Shaniqua Parker RN 07/27/2024 7:48 AM 07/30/2024 Clara Mayes DO 07/26/2024 5:12 PM Length of Stay (Days): 2 GMLOS: No GMLOS Documented * Care Plan - Carie Arce RN - 07/28/2024 6:46 AM EDT The patient is Moderately Unstable - Medium risk of patient condition declining or worsening The patient's goals for the shift include safety The clinical goals for the shift include hemodynamic stability Over the shift, the patient did not make progress toward the following goals. Barriers to progression include vasopressor requirements. Recommendations to address these barriers include wean pressors. * Care Coordination - Shaniqua Parker RN - 07/27/2024 8:41 AM EDT Care Managment Initial Assessment Date: 07/27/2024 Patient Name: Sandy Deng : 1960 Patient Information Source of Information: (chart review) Cognition/Language: Unable to Assess Permission given to speak with patient inbound sales representative/caregiver as indicated: Confirmation of Payer with patient/family: Payer Name: [employer] [place] : Confirmation of Primary Care Physician: PCP Name: Bird Lujan Seen in last 2 years?: Yes Primary Caregiver: Self If assistance needed, confirmed caregiver ready, willing and able to care for patient at discharge: Confirmed with: Living Arrangements Current Residence: Private Residence Number of Floors Number of Entry Steps: Bed/Bath Levels: Facility: Facility Name: Plan to Return: Lives with: Spouse/significant other Support Systems: Spouse/significant other, Children, Family members Activities of Daily Living Ambulation: Bathing/Dressing: Elimination/Continence/Toileting: Feeding: Who Assists with Activities of Daily Living: Instrumental Activities of Daily Living Prescription Coverage: Yes Pharmacy Used: Medication Management: Transportation/Shopping: Transportation Mode: Needs Assistance with Transportation at Discharge: Meal Preparation: Laundry/Cleaning: Finances/Bill Paying: Communication: Types of Care Services/Equipment Utilized Care Services: Dialysis Type: Durable Medical Equipment: Patient's Goal/Discharge Plan Patient expects to be discharged to: TBD Discharge Planning Actions: Continue to follow Patient's Choice Rights and [employer] and Collaborative Relationships Disclosed as Indicated for Post-Acute Care: Interdisciplinary Team Engagement: Social Work Referral for: Additional Information: Chart reviewed. Patient direct admit from [facility] to [facility] ICU for SDH 07/26/2024. Consults to IP CONSULT TO NEUROSURGERY IP CONSULT TO NEUROLOGY IP CONSULT TO NEPHROLOGY Initial Assessment: IA completed with chart review. Patient transferred from [facility]. NOK listed. Patient has insurance, prescription coverage and active with PCP. CM called PCP office spoke with MOODY Walker to confirm patient active. Discharge Planning/Barrier: Intubated/sedated. Art line. TLC CVC. HDC. CRRT. N/OGT. NPO. Johnson. IV qtt - levophed, vasopressin PT/OT/MULTIFOCAL LENS ASSEMBLER pending. CM requests [facility] to follow peripherally. Discharge Plan: TBD. Awaiting clinical stability and medical clearance. Will continue to follow with [facility]. Shaniqua Parker RN documented in this [facility]10-08-2024 [facility] 08-09-2024 Hospital Discharge instructions* Discharge Instr - CHELO* Jim Rodriguez RN - 08/09/2024 1:31 PM EDT Images from the original note were not included. Continuity of Care Form Patient Name: Sandy Deng : 1960 Admit date: 07/26/2024 Discharge date: 08/10/2024 Code Status Order: Full Code Advance Directives: N Admitting Physician: Ino Conte MD PCP: Bird Lujan Discharging Nurse: Jim SORIANO Discharging Hospital Unit/Room#: W3-339/W3-339 B Discharging Unit Phone Number: [phone] Emergency Contact: Extended Emergency Contact Information Primary Emergency Contact: Bobbi Steward Mobile Relation: Daughter Preferred language: New Zealander Driller Hand needed? No Secondary Emergency Contact: Jose Deng Mobile Relation: Spouse Preferred language: [place] Driller Hand needed? 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 (HCC) Myocardial infarction (HCC) Hyperlipidemia Diabetic neuropathy associated with type 1 diabetes mellitus (HCC) Stage 4 chronic kidney disease (HCC) Isolation/Infection: No active isolations ESBL Nurse Assessment: Last Vital Signs: BP 150/68 (BP Location: Right arm, Patient Position: Lying) Pulse 89 Temp 36.5 C (97.7 F) (Temporal) Resp 20 Ht 1.676 m (5' 5.98) Wt 57.4 kg (126 lb 8.7 oz) SpO2 100% BMI 20.43 kg/m Last documented pain score (0-10 scale): Last Weight: Wt Readings from Last 1 Encounters: 08/07/24 57.4 kg (126 lb 8.7 oz) Mental Status: CHELO Patient Mental Status: oriented and alert IV Access: CHELO IV Access: Dialysis Catheter - site: subclavian right, condition patent and no redness, insertion date: 08/02/2024 Nursing Mobility/ADLs: Walking Minimal assistance Transfer Minimal assistance Bathing Minimal assistance Dressing Minimal assistance Toileting Minimal assistance Feeding Minimal assistance Engraving Operator Total assistance Med Delivery yes Wound Care Documentation and Therapy: Elimination: Continence: Bowel: yes Bladder: yes Urinary Catheter: Insertion date: 08/08/2024 Colostomy/Ileostomy/Ileal Conduit: None Date of Last BM: 08/07/2024 Intake/Output Summary (Last 24 hours) at 08/09/2024 1331 Last data filed at 08/09/2024 0617 Gross per 24 hour Intake -- Output 475 ml Net -475 ml I/O last 3 completed shifts: In: 300 (5.2 mL/kg) [I.V.:300 (5.2 mL/kg)] Out: 725 (12.6 mL/kg) [Urine:725 (0.4 mL/kg/hr)] Weight: 57.4 kg Safety Concerns: history of falls (last 30 days) and at risk for falls Impairments/Disabilities: none Nutrition Therapy: Current Nutrition Therapy: Oral diet: general Routes of Feeding: oral Liquids: nectar thick liquids Daily Fluid Restriction: no Last Modified Barium Swallow with Video (Video Swallowing Test): done on 08/04/2024 Treatments at the Time of Hospital Discharge: Respiratory Treatments: PRN inhaler Oxygen Therapy: is on oxygen at 4 L/min per nasal cannula. Ventilator: No ventilator support Rehab Therapies: physical therapy, occupational therapy, speech therapy, nursing, and aide Weight Bearing Status/Restrictions: no restriction Other Medical Equipment (for information only, NOT a DME order): bedside commode, walker, wheelchair, and shower chair Other Treatments: NA Patient's personal belongings (please select all that are sent with patient): glasses RN SIGNATURE: MANAGEMENT/SOCIAL WORK SECTION Inpatient Status Date: 07/26/24 Discharging to Facility/ Agency Name: [facility] Address: [address] [place] [address] Fax: Dialysis Facility (if applicable) Name: [facility] is preference at out pt if needed Address: Dialysis Schedule: Phone: Fax: Pilot Plant Technician/[employer] And [employer]ank Department Supervisor signature: at1:31 PM PHYSICIAN SECTION Name: Sandy Deng Prognosis: fair Condition at Discharge: stable Rehab Potential (if transferring to Rehab): fair Recommended Labs or Other Treatments After Discharge: Type 1? Diabetes - patient having lows in hospital on 3 units of Lantus with MDSSI. Sending out on 3 units of Lantus. Please titrate accordingly. The individual is being admitted to a nursing facility directly from an [facility] or a unit of a [facility] that is not operated by or licensed by [facility] under section 5119.14 or 5160-3-15.1 5 The individual requires the level of services provided by a nursing facility for the condition for which he or she was treated in the hospital. Physician Certification: I certify the above information and transfer of Sandy Deng is necessary for the continuing treatment of the diagnosis listed and that she requires acute rehab for greater than 30 days. Update Admission H&P: No change in H&P PHYSICIAN SIGNATURE: documented in this [facility]10-01-2024 NoteReferral placed to Rehab - [facility] via [facility]port per [facility] request. Await review and response regarding ability to accept. TCC notified. Electronically signed by [facility]09-26-2024 [facility]09-26-2024 Procedure note* Armen Diaz MD PhD - 07/29/2024 12:43 PM EDTAssociated Order(s): EEG CONTINUOUS MONITORING Images from the original note were not included. [facility] [address] [place] [id number] CONTINUOUS LONG-TERM VIDEO EEG MONITORING REPORT Patient Name: Sandy Deng : 1960 Date of Study: 07/29/2024 Duration Recorded: 14:59:56 EEG#: [id number] PETROLEUM REFINERY WORKER: LIBRA Peters CLTM PROVIDER REQUESTING STUDY: Dr. Mahajan REASON FOR EXAM: Evaluate for epileptiform activity DIAGNOSIS TAG: Subdural Hemorrhage (SDH) HISTORY: Sandy Deng is a 63 y.o. female with history of COPD (3L O2 baseline), DM, CKD 4, HTN, CAD (PCI with stents in 2017). at bedside. Pt was admitted to [facility] due to confusion and hallucinations. Pt has had episodes of staring off into space per family. Was found to have a subdural hematoma. She reportedly had a fall 1 month ago from bed. states she hit her head on the nightstand. She is on Plavix and ASA for a stent placed 7 years ago. Pt tested positive for COVIDon 07/24. Today at [facility] ICU she had worsening hypoxia and was placed on NIV but failed. Was ultimately intubated. Noted to be hypotensive and started on levophed. Pt was transferred to [facility] for higher level of care. On arrival she was noted to have reduced urine output. Pt reportedly with CKD 4 and family states has been told in the past she may need HD in the future. Pt has a hx of intention tremor. MEDICATIONS: Current Facility-Administered Medications Medication Dose Route Frequency Provider Last Rate Last Admin alteplase (Cathflo Activase) 2 mg in sterile water 2 mL injection 2 mg IntraCATHeter PRN Saroj Knox MD 2 mg at 07/29/24 0646 calcium gluconate 2000 mg in 100 mL IVPB premix 2,000 mg IntraVENous Once Joycelyn Diane DO dexAMETHasone (Decadron) injection 6 mg 6 mg IntraVENous q24h Kena Heath, DO 6 mg at 07/28/24 1758 dextrose 5 % infusion 100 mL/hr IntraVENous PRN Deacon Mazariegos MD dextrose 50 % solution 12.5 g 12.5 g IntraVENous PRN Deacon Mazariegos MD 12.5 g at 07/27/242024 fentaNYL (Sublimaze) 1000 mcg in sodium chloride 0.9 % 100 mL 10 mcg/mL infusion 25-200 mcg/hr IntraVENous Continuous Clara Mayes, DO 8 mL/hr at 07/29/24 1121 80 mcg/hr at 07/29/24 1121 glucagon (human recombinant) injection 1 mg 1 mg IntraMUSCular PRN Deacon Mazariegos MD glucose oral gel 15 g 15 g Oral PRN Deacon Mazariegos MD Glycopyrrolate-Formoterol (Bevespi Aerosphere) 9-4.8 MCG/ACT inhaler 2 puff 2 puff Inhalation BID Deacon Mazariegos MD hydrALAZINE (Apresoline) injection 10 mg 10 mg IntraVENous q2h PRN Deacon Mazariegos MD insulin glargine (Lantus) injection 5 Units 5 Units SubCUTAneous Nightly Saroj Knox MD 5 Units at 07/28/242014 insulin regular (HumuLIN R,NovoLIN R) injection 0-18 Units 0-18 Units SubCUTAneous q6h Dariel Santizo MD 3 Units at 07/29/24 1216 ipratropium-albuterol (Duo-Neb) 0.5-2.5 mg/3 mL nebulizer solution 3 mL 3 mL Nebulization BID Deacon Mazariegos MD 3 mL at 07/28/24 1146 labetalol (Normodyne,Trandate) injection 10 mg 10 mg IntraVENous q15 min PRN Deacon Mazariegos MD meropenem (Merrem) 1,000 mg in sodium chloride 0.9 % 100 mL IVPB 1,000 mg IntraVENous q12h Kena Heath DO Stopped at 07/29/24 0233 mupirocin (Bactroban) 2 % ointment 1 Application 1 Application Nasal BID Clara Mayes DO 1 Application at 07/29/24 0811 naloxone (Narcan) injection 0.4 mg 0.4 mg IntraVENous q5 min PRN Colin Peoples MD norepinephrine (Levophed) infusion 16 mg in 0.9 % sodium chloride 250 mL (Iag-Deqbri-Mrlih) (premix) 2-100 mcg/min IntraVENous Continuous Saif-Mario Alberto Momin, DO 1.88 mL/hr at 07/29/24 1222 2 mcg/min at07/29/24 1222 ondansetron ODT (Zofran-ODT) disintegrating tablet 4 mg 4 mg Oral q8h PRN Clara Mayes DO Or ondansetron (Zofran) injection 4 mg 4 mg IntraVENous q6h PRN Clara Mayes DO pantoprazole (ProtoNix) 40 mg in sodium chloride (PF) 0.9 % 10 mL injection 40 mg IntraVENous BID Clara Mayes DO 40 mg at 07/29/24 0407 polyethylene glycol (PEG) 3350 (Miralax) packet 17 g 17 g Oral Daily PRN Clara Mayes DO PrismaSol BGK 4/2.5 CRRT solution 750 mL/hr CRRT Continuous Karyn Jones MD 750 mL/hr at 07/29/24 0302 750 mL/hr at 07/29/24 0302 PrismaSol BGK 4/2.5 CRRT solution 750 mL/hr CRRT Continuous Karyn Jones MD 750 mL/hr at 07/29/24 0301 750 mL/hr at 07/29/24 0301 PrismaSol BGK 4/2.5 CRRT solution 750 mL/hr CRRT Continuous Karyn Jones MD 750 mL/hr at 07/29/24 0300 750 mL/hr at 07/29/24 0300 propofol (Diprivan) infusion 5-50 mcg/kg/min IntraVENous Continuous Clara Mayes DO 7.2 mL/hrat 07/29/24 1120 25 mcg/kg/min at 07/29/24 1120 remdesivir (Veklury) 100 mg in sodium chloride 0.9 % 250 mL IVPB 100 mg IntraVENous q24h Kena Heath DO Stopped at 07/28/242027 sodium chloride 0.9 % bolus 30 mL 30 mL IntraVENous PRN Kena Heath DO sodium chloride 0.9 % infusion 75 mL/hr IntraVENous PRN Clara Mayes DO TECHNICAL ASPECTS: This continuous scalp EEG study with video was carried out at [facility]. Scalp electrodeswere positioned in person by an nuclear cardiology technologist, following patient education, according to the 10-20 International system of electrode placement and maintained for integrity and quality of the recording. EEG data with video was recorded continuously and digitally stored. The nuclear cardiology technologist reviewed all automated detections and manual events and prepared the data for archiving and provider review. Referential and bipolar montages were used for review. TECHNOLOGIST NOTES: No skull or scalp defects were observed. This video-EEG monitoring was continuously monitored, 4 patients per technologist. BACKGROUND ACTIVITY: Posterior background activity: No observable posterior dominant rhythm was seen. Beta range: Diffuse beta range activity (15-25 Hz, 10-20 uV) was seen. Sleep: No sleep architecture was observed. Normal Variants: No normal variants were identified. SLOWING: Continuous (greater than 90% of the recording) diffuse delta-theta range (0.5- 6.5 Hz, 20-55 uV) apiwopuzn-nt-myrhtobovswotl slowing was seen unresponsive to stimulation. At times, intermixed generalized periodic discharges with triphasic morphology and bmcdrntm-kz-lvljwvfhk phase delay are observed(0.5-1.5 Hz, 70-120 uV). 12:25:37 -Continuous slowing, generalized + triphasic waves (Referential to average, LFF=1Hz, HFF=30Hz, Sens=5 uV/mm) INTERICTAL EPILEPTIFORM ACTIVITY: No epileptiform activity was seen. ICTAL ACTIVITY: No ictal activity was seen. NON-EPILEPTIC EVENTS: None ACTIVATION PROCEDURES: Photic stimulation was not performed. Hyperventilation was not performed. IMPRESSION AND ACTIONS TAKEN: This continuous EEG with video is abnormal. Continuous diffuse eosmvovl-lf-jeqwll slowing is seen with intermixed triphasic waves. This activity is unresponsive to stimulation. No interictal epileptiform activity nor seizures are observed. The findings are indicative of a severe global encephalopathy with a toxic- metabolic component. Compared with the previous day of recording, triphasic waves are observed. Video-EEG monitoring was discontinued. Jasmeet Arevalo, PhD Clinical Neurophysiologist Armen Diaz MD PhD Epilepsy Attending * Armen Diaz MD PhD - 07/28/2024 12:38 PM EDTAssociated Order(s): EEG CONTINUOUS MONITORING Images from the original note were not included. [facility] [address] [place] [id number] CONTINUOUS LONG-TERM VIDEO EEG MONITORING REPORT Patient Name: Sandy Deng : 1960 Date of Study: 07/28/2024 Duration Recorded: 23:48:31 EEG#: [id number] PETROLEUM REFINERY WORKER: LIBRA Peters CLTM PROVIDER REQUESTING STUDY: Dr. Mahajan REASON FOR EXAM: Evaluate for epileptiform activity DIAGNOSIS TAG: Subdural Hemorrhage (SDH) HISTORY: Sandy Deng is a 63 y.o. female with history of COPD (3L O2 baseline), DM, CKD 4, HTN, CAD (PCI with stents in 2017). at bedside. Pt was admitted to [facility] due to confusion and hallucinations. Pt has had episodes of staring off into space per family. Was found to have a subdural hematoma. She reportedly had a fall 1 month ago from bed. states she hit her head on the nightstand. She is on Plavix and ASA for a stent placed 7 years ago. Pt tested positive for COVIDon 9/21. Today at [facility] ICU she had worsening hypoxia and was placed on NIV but failed. Was ultimately intubated. Noted to be hypotensive and started on levophed. Pt was transferred to [facility] for higher level of care. On arrival she was noted to have reduced urine output. Pt reportedly with CKD 4 and family states has been told in the past she may need HD in the future. Pt has a hx of intention tremor. MEDICATIONS: Current Facility-Administered Medications Medication Dose Route Frequency Provider Last Rate Last Admin dexAMETHasone (Decadron) injection 6 mg 6 mg IntraVENous q24h Kena Heath DO 6 mg at 07/27/24 180 dextrose 5 % infusion 100 mL/hr IntraVENous PRN Deacon Mazariegos MD dextrose 50 % solution 12.5 g 12.5 g IntraVENous PRN Deacon Mazariegos MD 12.5 g at 07/27/242024 fentaNYL (Sublimaze) 1000 mcg in sodium chloride 0.9 % 100 mL 10 mcg/mL infusion 25-200 mcg/hr IntraVENous Continuous Clara Mayes DO 12.5 mL/hr at 07/28/24 1000 125 mcg/hr at 07/28/24 1000 glucagon (human recombinant) injection 1 mg 1 mg IntraMUSCular PRN Deacon Mazariegos MD glucose oral gel 15 g 15 g Oral PRN Deacon Mazariegos MD Glycopyrrolate-Formoterol (Bevespi Aerosphere) 9-4.8 MCG/ACT inhaler 2 puff 2 puff Inhalation BID Deacon Mazariegos MD hydrALAZINE (Apresoline) injection 10 mg 10 mg IntraVENous q2h PRN Deacon Mazariegos MD insulin glargine (Lantus) injection 5 Units 5 Units SubCUTAneous Nightly Saroj Knox MD 5 Units at 07/27/242039 insulin regular (HumuLIN R,NovoLIN R) injection 0-18 Units 0-18 Units SubCUTAneous q6h Dariel Santizo MD 3 Units at 07/28/24 0420 ipratropium-albuterol (Duo-Neb) 0.5-2.5 mg/3 mL nebulizer solution 3 mL 3 mL Nebulization BID Deacon Mazariegos MD 3 mL at 07/28/24 1146 labetalol (Normodyne,Trandate) injection 10 mg 10 mg IntraVENous q15 min PRN Deacon Mazariegos MD meropenem (Merrem) 1,000 mg in sodium chloride 0.9 % 100 mL IVPB 1,000 mg IntraVENous q12h Kena Heath DO Stopped at 07/28/24 0231 mupirocin (Bactroban) 2 % ointment 1 Application 1 Application Nasal BID Clara Mayes DO 1 Application at 07/28/24 0821 naloxone (Narcan) injection 0.4 mg 0.4 mg IntraVENous q5 min PRN Colin Peoples MD norepinephrine (Levophed) infusion 16 mg in 0.9 % sodium chloride 250 mL (Phi-Lgfodo-Imywj) (premix) 2-100 mcg/min IntraVENous Continuous Simone Momin, DO 1.88 mL/hr at 07/28/24 1151 2 mcg/min at07/28/24 1151 ondansetron ODT (Zofran-ODT) disintegrating tablet 4 mg 4 mg Oral q8h PRN Clara Mayes DO Or ondansetron (Zofran) injection 4 mg 4 mg IntraVENous q6h PRN Clara Mayes, pantoprazole (ProtoNix) 40 mg in sodium chloride (PF) 0.9 % 10 mL injection 40 mg IntraVENous BID Clara Mayes DO 40 mg at 07/28/24 0420 polyethylene glycol (PEG) 3350 (Miralax) packet 17 g 17 g Oral Daily PRN Clara Mayes DO PrismaSol BGK 4/2.5 CRRT solution 750 mL/hr CRRT Continuous Karyn Jones MD 750 mL/hr at 07/28/24 0554 750 mL/hr at 07/28/24 0554 PrismaSol BGK 4/2.5 CRRT solution 750 mL/hr CRRT Continuous Karyn Jones MD 750 mL/hr at 07/28/24 0553 750 mL/hr at 07/28/24 0553 PrismaSol BGK 4/2.5 CRRT solution 750 mL/hr CRRT Continuous Karyn Jones MD 750 mL/hr at 07/28/24 0552 750 mL/hr at 07/28/24 0552 propofol (Diprivan) infusion 5-50 mcg/kg/min IntraVENous Continuous Clara Mayes DO 11.52 mL/hr at 07/28/24 1007 40 mcg/kg/min at 07/28/24 1007 remdesivir (Veklury) 100 mg in sodium chloride 0.9 % 250 mL IVPB 100 mg IntraVENous q24h Kena Heath DO Stopped at 07/27/24 1843 sodium chloride 0.9 % bolus 30 mL 30 mL IntraVENous PRN Kena Heath DO sodium chloride 0.9 % infusion 75 mL/hr IntraVENous PRN Clara Mayes DO TECHNICAL ASPECTS: This continuous scalp EEG study with video was carried out at [facility]. Scalp electrodeswere positioned in person by an nuclear cardiology technologist, following patient education, according to the 10-20 International system of electrode placement and maintained for integrity and quality of the recording. EEG data with video was recorded continuously and digitally stored. The nuclear cardiology technologist reviewed all automated detections and manual events and prepared the data for archiving and provider review. Referential and bipolar montages were used for review. TECHNOLOGIST NOTES: No skull or scalp defects were observed. This video-EEG monitoring was continuously monitored, 4 patients per technologist. BACKGROUND ACTIVITY: Posterior background activity: No observable posterior dominant rhythm was seen. Beta range: Diffuse beta range activity (15-25 Hz, 10-20 uV) was seen. Sleep: No sleep architecture was observed. Normal Variants: No normal variants were identified. SLOWING: Continuous (greater than 90% of the recording) diffuse delta-theta range (0.5- 6.5 Hz, 20-55 uV) lmkboyjou-fa-yqrtkcecaotpko slowing was seen unresponsive to stimulation. 12:04:28 -Continuous slowing, generalized (Referential to average, LFF=1Hz, HFF=30Hz, Sens=5 uV/mm) INTERICTAL EPILEPTIFORM ACTIVITY: No epileptiform activity was seen. ICTAL ACTIVITY: No ictal activity was seen. NON-EPILEPTIC EVENTS: None ACTIVATION PROCEDURES: Photic stimulation was not performed. Hyperventilation was not performed. IMPRESSION AND ACTIONS TAKEN: This continuous EEG with video is abnormal. Continuous diffuse gcqcxuim-we-wxavia slowing is seen unresponsive to stimulation. No interictal epileptiform activity nor seizures are observed. Compared with the previous day of recording, a cyclic alternating pattern of encephalopathy (CAPE) is no longer observed. These findings remain indicative of a potentially worsening cifebmjk-dn-cpkwqe global encephalopathy nonspecific as to etiology. Jasmeet Arevalo, PhD Clinical Neurophysiologist Armen Diaz MD PhD Epilepsy Attending * Armen Diaz MD PhD - 07/27/2024 1:43 PM EDTAssociated Order(s): EEG CONTINUOUS MONITORING Images from the original note were not included. [facility] [address] [place] [id number] CONTINUOUS LONG-TERM VIDEO EEG MONITORING REPORT Patient Name: Sandy Deng : 1960 Date of Study: 07/27/2024 Duration Recorded: 10:39:13 EEG#: [id number] PETROLEUM REFINERY WORKER: LIBRA Peters CLTM PROVIDER REQUESTING STUDY: Dr. Mahajan REASON FOR EXAM: Evaluate for epileptiform activity DIAGNOSIS TAG: Subdural Hemorrhage (SDH) HISTORY: Sandy Deng is a 63 y.o. female with history of COPD (3L O2 baseline), DM, CKD 4, HTN, CAD (PCI with stents in 2017). at bedside. Pt was admitted to [facility] due to confusion and hallucinations. Pt has had episodes of staring off into space per family. Was found to have a subdural hematoma. She reportedly had a fall 1 month ago from bed. states she hit her head on the nightstand. She is on Plavix and ASA for a stent placed 7 years ago. Pt tested positive for COVIDon 07/24. Today at [facility] ICU she had worsening hypoxia and was placed on NIV but failed. Was ultimately intubated. Noted to be hypotensive and started on levophed. Pt was transferred to [facility] for higher level of care. On arrival she was noted to have reduced urine output. Pt reportedly with CKD 4 and family states has been told in the past she may need HD in the future. Pt has a hx of intention tremor. MEDICATIONS: Current Facility-Administered Medications Medication Dose Route Frequency Provider Last Rate Last Admin calcium gluconate 3,000 mg in sodium chloride 0.9 % 100 mL IVPB 3,000 mg IntraVENous Once Saroj Knox MD Stopped at 07/27/24 1407 cefepime (Maxipime) 1,000 mg in sodium chloride 0.9 % 50 mL IVPB 1,000 mg IntraVENous q12h Kena Heath DO Stopped at 07/27/24 1003 dexAMETHasone (Decadron) injection 6 mg 6 mg IntraVENous q24h Kena Heath DO 6 mg at 07/26/24 2027 dextrose 5 % infusion 100 mL/hr IntraVENous PRN Deacon Mazariegos MD dextrose 50 % solution 12.5 g 12.5 g IntraVENous PRN Deacon Mazariegos MD fentaNYL (Sublimaze) 1000 mcg in sodium chloride 0.9 % 100 mL 10 mcg/mL infusion 25-200 mcg/hr IntraVENous Continuous Clara Mayes DO 7.5 mL/hr at 07/27/24 0829 75 mcg/hr at 07/27/24 0829 glucagon (human recombinant) injection 1 mg 1 mg IntraMUSCular PRN Deacon Mazariegos MD glucose oral gel 15 g 15 g Oral PRN Deacon Mazariegos MD Glycopyrrolate-Formoterol (Bevespi Aerosphere) 9-4.8 MCG/ACT inhaler 2 puff 2 puff Inhalation BID Deacon Mazariegos MD hydrALAZINE (Apresoline) injection 10 mg 10 mg IntraVENous q2h PRN Deacon Mazariegos MD insulin regular 100 units in 100 mL NS (Myxredlin) infusion (premix) 1-50 Units/hr IntraVENous Continuous Dariel Santizo MD Stopped at 07/27/24 1315 ipratropium-albuterol (Duo-Neb) 0.5-2.5 mg/3 mL nebulizer solution 3 mL 3 mL Nebulization BID Deacon Mazariegos MD 3 mL at 07/27/24 0839 labetalol (Normodyne,Trandate) injection 10 mg 10 mg IntraVENous q15 min PRN Deacon Mazariegos MD mupirocin (Bactroban) 2 % ointment 1 Application 1 Application Nasal BID Clara Mayes DO 1 Application at 07/27/24 0933 naloxone (Narcan) injection 0.4 mg 0.4 mg IntraVENous q5 min PRN Colin Peoples MD norepinephrine (Levophed) infusion 16 mg in 0.9 % sodium chloride 250 mL (Xit-Utpzxp-Fzeai) (premix) 2-100 mcg/min IntraVENous Continuous Saif-Mario Alberto Merrill, DO 4.69 mL/hr at 07/27/24 1238 5 mcg/min at07/27/24 1238 ondansetron ODT (Zofran-ODT) disintegrating tablet 4 mg 4 mg Oral q8h PRN Clara Mayes DO Or ondansetron (Zofran) injection 4 mg 4 mg IntraVENous q6h PRN Clara Mayes, DO pantoprazole (ProtoNix) 40 mg in sodium chloride (PF) 0.9 % 10 mL injection 40 mg IntraVENous BID Clara Mayes, DO 40 mg at 07/27/24 0524 polyethylene glycol (PEG) 3350 (Miralax) packet 17 g 17 g Oral Daily PRN Clara Mayes DO PrismaSol BGK 2/3.5 CRRT solution 750 mL/hr CRRT Continuous Joni Monson MD 750 mL/hr at 07/27/24 0935 750 mL/hr at 07/27/24 0935 PrismaSol BGK 2/3.5 CRRT solution 750 mL/hr CRRT Continuous Joni Monson MD 750 mL/hr at 07/27/24 0935 750 mL/hr at 07/27/24 0935 PrismaSol BGK 2/3.5 CRRT solution 750 mL/hr CRRT Continuous Joni Monson MD 750 mL/hr at 07/27/24 0934 750 mL/hr at 07/27/24 0934 propofol (Diprivan) infusion 5-50 mcg/kg/min IntraVENous Continuous Clara Mayes DO 4.32 mL/hr at 07/27/24 1109 15 mcg/kg/min at 07/27/24 1109 remdesivir (Veklury) 100 mg in sodium chloride 0.9 % 250 mL IVPB 100 mg IntraVENous q24h Kena Heath DO sodium bicarbonate 150 mEq in sterile water 1,000 mL infusion 75 mL/hr IntraVENous Continuous Saroj Knox MD 75 mL/hr at 07/27/24 0732 75 mL/hr at 07/27/24 0732 sodium chloride 0.9 % bolus 30 mL 30 mL IntraVENous PRN Kena Heath DO sodium chloride 0.9 % infusion 75 mL/hr IntraVENous PRN Clara Mayes DO TECHNICAL ASPECTS: This continuous scalp EEG study with video was carried out at [facility]. Scalp electrodeswere positioned in person by an nuclear cardiology technologist, following patient education, according to the 10-20 International system of electrode placement and maintained for integrity and quality of the recording. EEG data with video was recorded continuously and digitally stored. The nuclear cardiology technologist reviewed all automated detections and manual events and prepared the data for archiving and provider review. Referential and bipolar montages were used for review. TECHNOLOGIST NOTES: No skull or scalp defects were observed. This video-EEG monitoring was continuously monitored, 4 patients per technologist. BACKGROUND ACTIVITY: Posterior background activity: No observable posterior dominant rhythm was seen. Beta range: Diffuse beta range activity (15-25 Hz, 10-20 uV) was seen. Sleep: No sleep architecture was observed. Normal Variants: No normal variants were identified. SLOWING: A cyclic alternating pattern of encephalopathy (CAPE) is seen with two abnormal states: -State 1 was characterized by continuous (greater than 90% of the recording) diffuse delta-theta range (3.5-6.5 Hz, 20-50 uV) slow wave activity which is unresponsive to stimulation. -State 2 was characterized by delta range (0.5 Hz, 30-55 uV) slow wave activity with superimposed theta-alpha range (7-9 Hz, 10-30 uV) activity. The states alternated spontaneously and in response to stimulation. 14:18:46 -CAPE State 1 (Referential to average, LFF=1Hz, HFF=30Hz, Sens=7 uV/mm) 16:34:52 -CAPE State 2 (AP Bipolar, LFF=0.3Hz, HFF=30Hz, Sens=7 uV/mm) INTERICTAL EPILEPTIFORM ACTIVITY: No epileptiform activity was seen. ICTAL ACTIVITY: No ictal activity was seen. NON-EPILEPTIC EVENTS: At 16:27:31, a stimulus-induced rhythmic, periodic, or ictal discharge (SIRPID) pattern was observed in response to auditory and tactile stimulation during an attempt to arouse the patient. The EEG demonstrated diffuse rhythmic theta-range activity (4 Hz, 30-50 V). Clinically, the patient exhibited low-amplitude rhythmic tremors of the upper axial body and head, with subtle ggfw-jyt-ewyvl head movements at a frequency of 4 Hz. This activity ended at 16:32:12 with a state change to CAPE State 2. 16:28:40 -SIRPID: diffuse theta range activity (AP Bipolar, LFF=1Hz, HFF=30Hz, Sens=7 uV/mm) ACTIVATION PROCEDURES: Photic stimulation was not performed. Hyperventilation was not performed. IMPRESSION AND ACTIONS TAKEN: This continuous EEG with video is abnormal. A cyclic alternating pattern of encephalopathy (CAPE) is observed with two abnormal states. State 1is characterized by continuous htuiagdd-ge-tvypfp diffuse slowing. State 2 features lower amplitudeand frequency slowing with superimposed fast activity. No interictal epileptiform discharges nor seizures are observed. Of note, a stimulus-induced rhythmic, periodic, or ictal discharge (SIRPID) pattern was observed inresponse to auditory and tactile stimulation during an attempt to arouse the patient. This pattern lasted approximately 4.5 minutes. The EEG demonstrated diffuse moderate rhythmic activity. Clinically, the patient exhibited low-amplitude rhythmic tremors of the upper axial body and head, with subtle sjyo-yyi-veack head movements. This activity ended with a transition to CAPE State 2. The findings are supportive of a bdkqbiqc-pi-bdywtf global encephalopahy non- specific as to etiology. The observed SIRPID pattern is of non-specific clinical significance, but is evidence of reactivity. Jasmeet Arevalo, PhD Clinical Neurophysiologist Armen Diaz MD PhD Epilepsy Attending * Calitxo Trevino MD - 07/27/2024 1:50 AM EDTAssociated Order(s): Central Line Insertion Post-Procedure Diagnose(s): Stage 4 chronic kidney disease (HCC) Central Line Insertion Date/Time: 07/27/2024 1:51 AM Performed by: Calixto Trevino MD Authorized by: Saroj Knox MD Consent: The indications, risks, benefits, alternatives to the procedure were explained to the patient/surrogate decision maker and their questions answered. Consent was obtained to proceed with the procedure. Timeout: Completed immediately prior to the start of the procedure which included verification of the correct patient, correct site and agreement on the procedure to be done. Indication: Extracorporeal therapies. Hemodialysis, or Plasmapheresis Anesthetic: Local anesthetic used: lidocaine without epinephrine Procedure Details: Preparation: skin prepped with chlorhexidine Skin prep agent dried: skin prep agent completely dried prior to procedure Sterile barriers: all five maximum sterile barriers used - cap, mask, sterile gown, sterile gloves,and large sterile sheet Hand hygiene: hand hygiene performed prior to central venous catheter insertion Sterile technique: Sterile technique maintained throughout procedure. Central Line Type: hemodialysis Orientation: left Location details: internal jugular Catheter type: double lumen Number of attempts: 1 Ultrasound guidance: yes Post-Procedure: Post-procedure: line sutured, dressing applied and antimicrobial dressing applied Description/Findings: dark, non-pulsatile blood return obtained from all lumens Estimated blood loss: < 5 mL Complications: No apparent complications Follow-up chest x-ray: ordered Assistants & Supervision: I personally performed the procedure documented as signed by this procedure note Garage Construction Equipment Mechanic: Dr. Knox The attending physician was physically present while the proceduralist performed canterll/critical components of the procedure. Attending: Dr. Knox Associated attestation - Saroj Knox MD - 07/27/2024 6:37 AM EDT I have reviewed and agree with the resident/fellow/TONJA note I was physically present for cantrell elements of the procedure Complications during procedure: None * Calixto Trevino MD - 07/26/2024 9:38 PM EDTAssociated Order(s): Arterial Line Insertion Post-Procedure Diagnose(s): SDH (subdural hematoma) (HCC) Arterial Line Insertion Date/Time: 07/26/2024 9:39 PM Performed by: Calixto Trevino MD Authorized by: Mynor Concepcion DO Consent: The indications, risks, benefits, alternatives to the procedure were explained to the patient/surrogate decision maker and their questions answered. Consent was obtained to proceed with the procedure. Timeout: Completed immediately prior to the start of the procedure which included verification of the correct patient, correct site and agreement on the procedure to be done. Indications: Indications: hemodynamic monitoring Anesthetic: Local anesthetic used: lidocaine without epinephrine Preparation: Patient was prepped and draped in usual sterile fashion. Skin prepped: skin prepped with chlorhexidine Procedure Details: Orientation: left Location: radial Number of attempts: 2 Post-Procedure: Post-procedure: line sutured, dressing applied and antimicrobial dressing applied Description/Findings: Bright red pulsatile blood return noted and Waveform confirmed Estimated blood loss: < 5 mL Complications: No apparent complications Assistants & Supervision: I personally performed the procedure documented as signed by this procedure note Garage Construction Equipment Mechanic: Dr. Concepcion The attending physician was physically present while the proceduralist performed cantrell/critical components of the procedure. Attending: Dr. Concepcion Associated attestation - Mynor Concepcion DO - 07/27/2024 12:52 AM EDT I have reviewed and agree with the resident/fellow/TONJA note I was physically present for cantrell elements of the procedure Complications during procedure: None documented in this [facility]09-25-2024 [facility] 07-28-2024 Consult note* Shanti García, RICKY - 07/28/2024 10:42 AM EDTAssociated Order(s): IP CONSULT TO DIETITIAN Nutrition Assessment Type and Reason for Visit: Initial, Consult (TF ordering and management) Nutrition Recommendations/Plan: Continue with Glucerna 1.5 - can decrease rate to 35 mls/hour via MNT protocol. Glucerna 1.5 @ 35 mls/hour + current Propofol (304 kcals) = 1564 kcals, 69g protein, 637 mls free H20 = 27 kcals/kg + 1.17g protein/kg IBW (59kgs). Monitor need for additional free water. Monitor nutritional status. Malnutrition Assessment: Malnutrition Status: At risk for malnutrition (Comment) Context: Acute Illness Findings of the 6 clinical characteristics of malnutrition: Energy Intake: Mild decrease in energy intake (Comment) Weight Loss: No significant weight loss Body Fat Loss: No significant body fat loss Muscle Mass Loss: No significant muscle mass loss Fluid Accumulation: No significant fluid accumulation Digital Archivist Strength: Not Performed Nutrition Assessment: Pt is a 63-year-old female with multiple medical co-morbidities including Type I DM (on insulin pump), COPD on 4L home O2, CKD4, on ASA/Plavix who initially presented to [facility] on 07/23 withacute respiratory distress and acute delirium. 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 She was found to be hypoxic and hypercarbic, and COVID positive. She continued to be delirious and did not tolerate NIV, and required intubation 07/27/24. A CT head was done to evaluate her altered mental status, and she was found to have a small acute right sided SDH vs. epidural hematoma. For this reason, [facility] consulted for further neurologic management and she was transf erred to SICU on 07/26. She started on CRRT last night 07/26/24. Levophed at 30, vasopressin added. Initial infectious workup returned with CTX-M Pseudomonas and S aureus identified on pneumonia PCR. Insulin drip started - hx T1DM on insulin pump; insulin drip is now off. Pt with episodes of agitation, attempted to remove her ET tube. Propofol rate increased. Propofol @ 11.52 mls/hour (304 kcals). Estimated Daily Nutrient Needs: Energy Requirements Based On: Kcal/kg Weight Used for Energy Requirements: [place] Weight for Energy Calculation (kg): 59 kg Total Energy Requirements (kcals/day): 25-30 kcals/kg = 2317-4665 kcals/day Weight Used for Protein Requirements: [place] Weight in Kg Used for Protein Requirements: 59 kg Estimated Total Protein (g/day): 1.2-1.4g protein/kg IBW = 71-83g protein/day Estimated Daily Total Fluid (ml/day): 1475 mls Nutrition Related Findings: +BS, abd soft, Hipolito 14. Trace RUE edema Wound Type: None (generalized bruising) Net IO Since Admission: 2,225.7 mL [07/28/24 1632] Current Nutrition Therapies: Enteral Nutrition Feeding Route: Orogastric EN Formula: Glucerna 1.5 [place] EN Schedule: Continuous EN Feeding Regimen: Glucerna 1.5 @ 30 mls, increase to 40 mls/hour goal rate. Water Flushes: 40 mls every 4 hours Current EN & Flush Order Provides: Glucerna 1.5 @ 40 mls/hour + Propofol (304 kcals) = 1744 kcals, 79g protein, 728 mls free H20 = 30 kcals/kg + 1.34g protein/kg IBW (59kgs). Anthropometric Measures: Height: 167.6 cm (5' 6) (per RD Epic review) Current Body Weight: 48 kg (105 lb 13.1 oz) Weight Source: Not Specified [place] Body Weight (lbs) (Calculated): 130 lbs [place] Body Weight (Kg) (Calculated): 59 kg % [place] Body Weight (Calculated): 81.4 % BMI (kg/m2) (Calculated): 17.1 BMI Categories: Normal Weight (BMI 18.5-24.9) Wt Readings from Last 10 Encounters: 07/28/24 61.2 kg (134 lb 14.7 oz) LABS: Recent Labs 07/27/24 1427 07/27/24 2114 07/28/24 0409 07/28/24 1257 NA 131* 131* 131* 130* K 3.6 3.6 4.5 4.5 CL 102 102 104 102 CO2 24 BUN 49* 41* 34* 31* CREATININE 2.81* 2.18* 1.80* 1.50* GLUCOSE 83 87 143* 149* CALCIUM 7.5* 7.3* 7.4* 7.3* CAION 4.20* 4.00* 4.10* 4.20* MG -- 1.9 2.2 2.7* PHOS 4.6* -- 3.6 3.5 Na+ - decreased, BUN/Cr - elevated, BG - elevated, Mg - elevated. Recent Labs 07/26/24 1850 07/27/24 0530 07/28/24 1257 AST 40 28 44 ALT 21 19 23 BILITOT 0.5 0.3 0.5 ALKPHOS 68 66 78 Nutrition Diagnosis: Inadequate oral intake related to impaired respiratory function as evidenced by NPO or clear liquidstatus due to medical condition, intubation, nutrition support - enteral nutrition Nutrition Interventions: Nutrition Education/Counseling: Education not indicated Coordination of Nutrition Care: Continue to monitor while inpatient Goals: Previous Goal Met: Progressing toward Goal(s) Goals: Tolerate nutrition support at goal rate, by next RD assessment Nutrition Monitoring and Evaluation: Food/Nutrient Intake Outcomes: Enteral Nutrition Intake/Tolerance Physical Signs/Symptoms Outcomes: Biochemical Data, GI Status, Fluid Status or Edema, Hemodynamic Status, Nutrition Focused Physical Findings, Skin, Weight Discharge Planning: Too soon to determine Shanti García RD,LD,CNSC Contact: *[phone] or Daily [employer] Online Chat * Torito Mahajan - 07/27/2024 2:11 PM EDTAssociated Order(s): IP CONSULT TO NEUROLOGY NEUROCRITICAL CARE CONSULT NOTE Patient Name: Sandy Deng Patient : 1960 Acct: [id number] Date of Admission: 07/26/2024 Room/Bed: T2213/Rust213 A PCP: Bird Lujan Chief Complaint: encephalopathy History of Present Ilness: Sandy Deng is a 63 yo F with a history of COPD, DM, HLD, CKD who presented to OSH altered andis respiratory distress with shaking movements also found to have trace R temporal SDH. No intervention for SDH and will monitor. The shaking movements witnessed are not concerning for seizure clinically as they are irregular asynchronous myoclonic movements but she is profoundly encephalopathic inthe setting of COVID, renal failure on CRRT, and septic shock. Past Medical History: COPD, DM, HLD, CKD Past Surgical History: NA Home Medications: Prior to Admission medications Medication Sig Start Date End Date Taking? Authorizing Provider gabapentin (Neurontin) 800 MG tablet 400 mg noon 800 mg at night Historical Provider, Current Hospital Medications: Current Facility-Administered Medications: dexAMETHasone (Decadron) injection 6 mg, 6 mg, IntraVENous, q24h, Kena Heath DO, 6 mg at 07/26/242026 dextrose 5 % infusion, 100 mL/hr, IntraVENous, PRN, Deacon Mazariegos MD dextrose 50 % solution 12.5 g, 12.5 g, IntraVENous, PRN, Deacon Mazariegos MD fentaNYL (Sublimaze) 1000 mcg in sodium chloride 0.9 % 100 mL 10 mcg/mL infusion, 25-200 mcg/hr, IntraVENous, Continuous, Clara Mayes DO, Last Rate: 7.5 mL/hr at 07/27/24 08, 75 mcg/hr at 07/27/24 0829 glucagon (human recombinant) injection 1 mg, 1 mg, IntraMUSCular, PRN, Deacon Mazariegos MD glucose oral gel 15 g, 15 g, Oral, PRN, Deacon Mazariegos MD Glycopyrrolate-Formoterol (Bevespi Aerosphere) 9-4.8 MCG/ACT inhaler 2 puff, 2 puff, Inhalation, BID, Deacon Mazariegos MD hydrALAZINE (Apresoline) injection 10 mg, 10 mg, IntraVENous, q2h PRN, Deacon Mazariegos MD insulin regular 100 units in 100 mL NS (Myxredlin) infusion (premix), 1-50 Units/hr, IntraVENous, Continuous, Dariel Santizo MD, Stopped at 07/27/24 1315 ipratropium-albuterol (Duo-Neb) 0.5-2.5 mg/3 mL nebulizer solution 3 mL, 3 mL, Nebulization, BID, Deacon Mazariegos MD, 3 mL at 07/27/24 0839 labetalol (Normodyne,Trandate) injection 10 mg, 10 mg, IntraVENous, q15 min PRN, Deacon Mazariegos MD meropenem (Merrem) 1,000 mg in sodium chloride 0.9 % 100 mL IVPB, 1,000 mg, IntraVENous, Once FOLLOWED BY [START ON 07/28/2024] meropenem (Merrem) 1,000 mg in sodium chloride 0.9 % 100 mL IVPB, 1,000 mg, IntraVENous, q12h, Kena Heath DO mupirocin (Bactroban) 2 % ointment 1 Application, 1 Application, Nasal, BID, Clara Mayes DO,1 Application at 07/27/24 0933 naloxone (Narcan) injection 0.4 mg, 0.4 mg, IntraVENous, q5 min PRN, Colin Poeples MD norepinephrine (Levophed) infusion 16 mg in 0.9 % sodium chloride 250 mL (Gpw-Gpixlw-Ructb) (premix), 2-100 mcg/min, IntraVENous, Continuous, Simone Momin DO, Last Rate: 4.69 mL/hr at 07/27/24 1405, 5 mcg/min at 07/27/24 1405 ondansetron ODT (Zofran-ODT) disintegrating tablet 4 mg, 4 mg, Oral, q8h PRN OR ondansetron (Zofran) injection 4 mg, 4 mg, IntraVENous, q6h PRN, Clara Mayes DO pantoprazole (ProtoNix) 40 mg in sodium chloride (PF) 0.9 % 10 mL injection, 40 mg, IntraVENous, BID, Clara Mayes DO, 40 mg at 07/27/24 0524 polyethylene glycol (PEG) 3350 (Miralax) packet 17 g, 17 g, Oral, Daily PRN, Clara Mayes DO PrismaSol BGK 2/3.5 CRRT solution, 750 mL/hr, CRRT, Continuous, Joni Monson MD, Last Rate: 750 mL/hr at 07/27/24 0935, 750 mL/hr at 07/27/24 0935 PrismaSol BGK 2/3.5 CRRT solution, 750 mL/hr, CRRT, Continuous, Joni Monson MD, Last Rate: 750 mL/hr at 07/27/24 0935, 750 mL/hr at 07/27/24 0935 PrismaSol BGK 2/3.5 CRRT solution, 750 mL/hr, CRRT, Continuous, Joni Monson MD, Last Rate: 750 mL/hr at 07/27/24 0934, 750 mL/hr at 07/27/24 0934 propofol (Diprivan) infusion, 5-50 mcg/kg/min, IntraVENous, Continuous, Clara aMyes DO, LastRate: 4.32 mL/hr at 07/27/24 1109, 15 mcg/kg/min at 07/27/24 1109 [COMPLETED] remdesivir (Veklury) 200 mg in sodium chloride 0.9 % 250 mL IVPB, 200 mg, IntraVENous, Once, Stopped at 07/27/24 0159 FOLLOWED BY remdesivir (Veklury) 100 mg in sodium chloride 0.9 % 250 mL IVPB, 100 mg, IntraVENous, q24h, Kena Heath DO sodium bicarbonate 150 mEq in sterile water 1,000 mL infusion, 75 mL/hr, IntraVENous, Continuous, Saroj Knox MD, Last Rate: 75 mL/hr at 07/27/24731, 75 mL/hr at 07/27/24731 sodium chloride 0.9 % bolus 30 mL, 30 mL, IntraVENous, PRN, Kena Heath, DO sodium chloride 0.9 % infusion, 75 mL/hr, IntraVENous, PRN, Clara Mayes, DO Continuous Infusions: fentaNYL, 25-200 mcg/hr, Last Rate: 75 mcg/hr (07/27/24 0829) insulin regular, 1-50 Units/hr, Last Rate: Stopped (07/27/24 1315) norepinephrine, 2-100 mcg/min, Last Rate: 5 mcg/min (07/27/24 1405) PrismaSol BGK 2/3.5, 750 mL/hr, Last Rate: 750 mL/hr (07/27/24934) PrismaSol BGK 2/3.5, 750 mL/hr, Last Rate: 750 mL/hr (07/27/24934) PrismaSol BGK 2/3.5, 750 mL/hr, Last Rate: 750 mL/hr (07/27/2434) propofol, 5-50 mcg/kg/min, Last Rate: 15 mcg/kg/min (07/27/24 1109) sodium bicarbonate 150 mEq in sterile water 1,000 mL infusion, 75 mL/hr, Last Rate: 75 mL/hr (07/27/24731) Allergies: Patient has no allergy information on record. Social History: TOBACCO: has no history on file for tobacco use. ETOH: has no history on file for alcohol use. RECREATIONAL DRUG USE: Social History Substance and Sexual Activity Drug Use Not on file Family History: NA ROS Unable to obtain ROS due to patientintubated. Unable to obtain review of systems due to patient sedated Vitals: Patient Vitals for the past 8 hrs: Temp Temp src Pulse Resp SpO2 Height 07/27/24 1400 -- -- 74 16 99 % -- 07/27/24 1358 -- -- 76 16 99 % -- 07/27/24 1345 -- -- 76 16 99 % -- 07/27/24 1330 -- -- 73 16 98 % -- 07/27/24 1315 -- -- 74 16 98 % -- 07/27/24 1300 -- -- 76 16 97 % -- 07/27/24 1245 -- -- 78 16 98 % -- 07/27/24 1230 -- -- 75 16 97 % -- 07/27/24 1215 -- -- 75 16 98 % -- 07/27/24 1205 -- -- 75 16 95 % -- 07/27/24 1200 36.4 C (97.6 F) Temporal 75 16 97 % -- 07/27/24 1149 -- -- 74 17 99 % -- 07/27/24 1148 -- -- 75 16 99 % -- 07/27/24 1145 -- -- 72 14 99 % -- 07/27/24 1142 -- -- 74 14 98 % -- 07/27/24 1130 -- -- 73 14 97 % -- 07/27/24 1115 -- -- 74 14 98 % -- 07/27/24 1100 -- -- 72 14 97 % -- 07/27/24 1045 -- -- 71 14 94 % -- 07/27/24 1042 -- -- -- -- -- 1.676 m (5' 6) 07/27/24 1030 -- -- 71 14 96 % -- 07/27/24 1015 -- -- 71 14 97 % -- 07/27/24 1000 -- -- 78 14 97 % -- 07/27/24 0950 -- -- 71 14 97 % -- 07/27/24 0945 -- -- 70 14 97 % -- 07/27/24 0930 -- -- 70 14 96 % -- 07/27/24 0915 -- -- 68 14 96 % -- 07/27/24 0900 -- -- 64 14 97 % -- 07/27/24 0845 -- -- 59 14 98 % -- 07/27/24 0841 -- -- 57 14 100 % -- 07/27/24 0830 -- -- 53 14 100 % -- 07/27/24 0801 (!) 35.7 C (96.3 F) Temporal 56 -- -- -- 07/27/24 0800 (!) 35.7 C (96.3 F) Temporal 56 14 98 % -- 07/27/24 0745 -- -- 58 14 99 % -- 07/27/24 0730 -- -- 55 14 98 % -- 07/27/24 0715 -- -- 51 14 98 % -- 07/27/24 0700 -- -- 56 14 99 % -- 07/27/24 0630 -- -- 56 14 100 % -- 07/27/24 0615 -- -- 56 14 99 % -- I/O last 3 completed shifts: In: 2531 (52.7 mL/kg) [I.V.:2531 (52.7 mL/kg)] Out: 345 (7.2 mL/kg) [Urine:84 (0 mL/kg/hr)] Weight: 48 kg Physical Examination: General: Intubated and sedated HEENT: Normocephalic and atraumatic. Cardiac: Regular rate and rhythm. Pulm: Ventilated GI/: Nondistended, nontender. Ext: No edema. Skin: No rashes or lesions. Neuro: Intubated and sedated Grimaces to pain but no eye opening. When eyes opened does not attend or track Does not follow commands PERRL, EOMI, -BTT, face symmetric +OCR, +gag, +cough Withdraws in extremities Diffuse irregular asynchronous myoclonic movements Results: Recent Results (from the past 24 hour(s)) ECG 12 lead Collection Time: 07/26/24 5:30 PM Result Value Ref Range Heart Rate 63 bpm QRSD Interval 89 ms QT Interval 448 ms QTC Interval 459 ms P [place] 82 degrees QRS [place] -71 degrees T Wave [place] 88 degrees [place] Interval 98 ms Procalcitonin Test Collection Time: 07/26/24 6:50 PM Result Value Ref Range PROCALCITONIN 2.48 (H) 0.00 - 0.09 ng/mL Troponin, with Serial Reflex Collection Time: 07/26/24 6:50 PM Result Value Ref Range TROPONIN I 0.013 <0.034 ng/mL CBC auto differential Collection Time: 07/26/24 6:50 PM Result Value Ref Range Auto WBC 18.7 (H) 3.6 - 10.7 10*3/uL RBC 3.53 (L) 3.80 - 5.20 10*6/uL Hemoglobin 10.1 (L) 11.7 - 16.0 g/dL Hematocrit 31.3 (L) 35.0 - 47.0 % MCV 88.7 77.0 - 99.0 fL MCH 28.6 26.0 - 34.0 pg MCHC 32.3 30.5 - 36.0 % RDW 15.5 (H) 11.5 - 15.0 % Platelets 244 140 - 440 10*3/uL MPV 11.0 9.0 - 12.7 fL nRBC 1.1 0.0 - 2.0 /100 WBCs Neutrophils Relative 85.8 (H) 38.0 - 82.0 % Lymphocytes Relative 6.2 (L) 15.0 - 45.0 % Monocytes Relative 7.2 5.0 - 13.0 % Eosinophils Relative 0.1 0.0 - 6.0 % Basophils Relative 0.1 0.0 - 2.0 % Immature Grans % 0.6 0.0 - 2.0 % Neutrophils Absolute 16.1 (H) 1.8 - 7.5 10*3/uL Lymphocytes Absolute 1.2 1.0 - 4.3 10*3/uL Monocytes Absolute 1.4 (H) 0.0 - 0.9 10*3/uL Eosinophils Absolute 0.0 0.0 - 0.5 10*3/uL Basophils Absolute 0.0 0.0 - 0.2 10*3/uL Immature Grans Absolute 0.1 (H) <0.1 10*3/uL Comprehensive metabolic panel Collection Time: 07/26/24 6:50 PM Result Value Ref Range SODIUM 125 (L) 135 - 145 mmol/L POTASSIUM 5.5 (H) 3.5 - 5.1 mmol/L CHLORIDE 98 98 - 107 mmol/L CARBON DIOXIDE 17 (L) 22 - 30 mmol/L ANION GAP 10 3 - 13 mmol/L UREA NITROGEN 76 (H) 7 - 17 mg/dL CREATININE 4.56 (H) 0.52 - 1.04 mg/dL GLUCOSE 252 (H) 70 - 100 mg/dL CALCIUM 5.5 (LL) 8.4 - 10.4 mg/dL AST (SGOT) 40 15 - 46 U/L ALT 21 0 - 34 U/L ALKALINE PHOSPHATASE 68 38 - 126 U/L ALBUMIN 2.9 (L) 3.5 - 5.0 g/dL BILIRUBIN, TOTAL 0.5 0.2 - 1.3 mg/dL TOTAL PROTEIN 5.5 (L) 6.3 - 8.2 g/dL eGFR 10.2 (L) >60.0 mL/min/1.73m*2 Magnesium Collection Time: 07/26/24 6:50 PM Result Value Ref Range MAGNESIUM 1.5 (L) 1.6 - 2.3 mg/dL Phosphorus Collection Time: 07/26/24 6:50 PM Result Value Ref Range PHOSPHORUS 8.5 (H) 2.5 - 4.5 mg/dL Calcium, ionized Collection Time: 07/26/24 6:50 PM Result Value Ref Range Calcium, Ion 2.80 (L) 4.30 - 5.20 mg/dL PH, IONIZED CALCIUM 7.29 (L) 7.31 - 7.46 Lactic acid with reflex Collection Time: 07/26/24 6:50 PM Result Value Ref Range LACTIC ACID 0.9 0.7 - 2.0 mmol/L TSH Collection Time: 07/26/24 6:50 PM Result Value Ref Range THYROID STIMULATING HORMONE 3.472 0.465 - 4.680 uIU/mL Hemoglobin A1c Collection Time: 07/26/24 6:50 PM Result Value Ref Range HEMOGLOBIN A1C 6.2 (H) <5.7 % ESTIMATED AVERAGE GLUCOSE 131 mg/dL Osmolality, urine Collection Time: 07/26/24 7:58 PM Result Value Ref Range OSMOLALITY, URINE 316 300 - 1,000 mOsm/kg Sodium, urine, random Collection Time: 07/26/24 7:58 PM Result Value Ref Range SODIUM, URINE 31 30 - 90 mmol/L Creatinine, urine, random Collection Time: 07/26/24 7:58 PM Result Value Ref Range CREATININE, URINE 96.9 No Range mg/dL Legionella and Streptococcus Urine Antigen Collection Time: 07/26/24 7:58 PM Specimen: Urine, Clean Catch Result Value Ref Range Legionella pneumophila Ag Not Detected Not Detected Streptococcus pneumoniae Ag Not Detected Not Detected Troponin I Collection Time: 07/26/24 9:56 PM Result Value Ref Range TROPONIN I 0.014 <0.034 ng/mL Osmolality Collection Time: 07/26/24 9:56 PM Result Value Ref Range OSMOLALITY, SERUM 309 (H) 280 - 300 mOsm/kg Blood Gas, Arterial Collection Time: 07/26/24 10:32 PM Result Value Ref Range pH, Arterial 7.166 (LL) 7.350 - 7.450 pCO2, Arterial 30.4 (L) >35.0 - <45.0 mm Hg pO2, Arterial 95.4 80.0 - 100.0 mm Hg HCO3, Arterial 10.7 (L) 21.0 - 25.0 mmol/L O2 Sat, Arterial 94.9 (L) 95.0 - 100.0 % Base Excess, Arterial -16.5 (L) -3.0 - 3.0 mmol/L CO2 Total 11.7 (L) 23.0 - 27.0 mmol/L Hgb, blood gas 8.1 Screen only g/dl Source Of Oxygen Vent POCT glucose meter Collection Time: 07/27/24 1:50 AM Result Value Ref Range Glucose 320 (H) 70 - 100 mg/dL Troponin I Collection Time: 07/27/24 2:46 AM Result Value Ref Range TROPONIN I 0.017 <0.034 ng/mL Pneumonia PCR Panel Collection Time: 07/27/24 2:53 AM Specimen: Sputum Result Value Ref Range Staphylococcus aureus Detected (A) Not Detected mecA Not Detected Not Detected Streptococcus agalactiae Not Detected Not Detected Streptococcus pneumoniae Not Detected Not Detected Streptococcus pyogenes Not Detected Not Detected Haemophilus influenzae Not Detected Not Detected Moraxella catarrhalis Not Detected Not Detected Acinetobacter baumannii complex Not Detected Not Detected Enterobacter cloacae complex Not Detected Not Detected Escherichia coli Not Detected Not Detected Klebsiella (Enterobacter) aerogenes Not Detected Not Detected Klebsiella oxytoca Not Detected Not Detected Klebsiella pneumoniae Not Detected Not Detected Proteus spp Not Detected Not Detected Pseudomonas aeruginosa Detected (A) Not Detected Serratia marcescens Not Detected Not Detected CTX-M Detected (A) Not Detected Chlamydia pneumoniae Not Detected Not Detected Legionella pneumophila Not Detected Not Detected Mycoplasma pneumoniae Not Detected Not Detected Adenovirus Not Detected Not Detected Coronavirus Detected (A) Not Detected Human Metapneumovirus Not Detected Not Detected Human Rhinovirus/Enterovirus Not Detected Not Detected Influenza A Not Detected Not Detected Influenza B Not Detected Not Detected Parainfluenza virus Not Detected Not Detected Respiratory Syncytial Virus Not Detected Not Detected Respiratory culture and Stain Collection Time: 07/27/24 2:54 AM Specimen: Sputum Result Value Ref Range Respiratory culture Culture in progress Gram Stain Result (A) Many Polymorphonuclear leukocytes per low power field Gram Stain Result Few Epithelial cells per low power field (A) Gram Stain Result Moderate Gram positive cocci (A) POCT glucose meter Collection Time: 07/27/24 5:17 AM Result Value Ref Range Glucose 283 (H) 70 - 100 mg/dL CBC auto differential Collection Time: 07/27/24 5:30 AM Result Value Ref Range Auto WBC 14.5 (H) 3.6 - 10.7 10*3/uL RBC 3.09 (L) 3.80 - 5.20 10*6/uL Hemoglobin 8.8 (L) 11.7 - 16.0 g/dL Hematocrit 27.2 (L) 35.0 - 47.0 % MCV 88.0 77.0 - 99.0 fL MCH 28.5 26.0 - 34.0 pg MCHC 32.4 30.5 - 36.0 % RDW 15.3 (H) 11.5 - 15.0 % Platelets 186 140 - 440 10*3/uL MPV 10.4 9.0 - 12.7 fL Magnesium Collection Time: 07/27/24 5:30 AM Result Value Ref Range MAGNESIUM 2.0 1.6 - 2.3 mg/dL Phosphorus Collection Time: 07/27/24 5:30 AM Result Value Ref Range PHOSPHORUS 6.8 (H) 2.5 - 4.5 mg/dL Calcium, ionized Collection Time: 07/27/24 5:30 AM Result Value Ref Range Calcium, Ion 3.70 (L) 4.30 - 5.20 mg/dL PH, IONIZED CALCIUM 7.22 (L) 7.31 - 7.46 T4, free Collection Time: 07/27/24 5:30 AM Result Value Ref Range FREE T4 1.67 0.78 - 2.19 ng/dL Comprehensive metabolic panel Collection Time: 07/27/24 5:30 AM Result Value Ref Range SODIUM 130 (L) 135 - 145 mmol/L POTASSIUM 4.3 3.5 - 5.1 mmol/L CHLORIDE 101 98 - 107 mmol/L CARBON DIOXIDE 18 (L) 22 - 30 mmol/L ANION GAP 11 3 - 13 mmol/L UREA NITROGEN 66 (H) 7 - 17 mg/dL CREATININE 4.00 (H) 0.52 - 1.04 mg/dL GLUCOSE 254 (H) 70 - 100 mg/dL CALCIUM 6.5 (L) 8.4 - 10.4 mg/dL AST (SGOT) 28 15 - 46 U/L ALT 19 0 - 34 U/L ALKALINE PHOSPHATASE 66 38 - 126 U/L ALBUMIN 2.4 (L) 3.5 - 5.0 g/dL BILIRUBIN, TOTAL 0.3 0.2 - 1.3 mg/dL TOTAL PROTEIN 4.9 (L) 6.3 - 8.2 g/dL eGFR 11.9 (L) >60.0 mL/min/1.73m*2 MANUAL DIFFERENTIAL (CELLAVISION) Collection Time: 07/27/24 5:30 AM Result Value Ref Range RBC Morphology abnormal Anisocytosis Slight (A) (none) Poikilocytes Slight (A) (none) Macrocytes Slight (A) (none) Microcytes Slight (A) (none) Polychromasia Slight (A) (none) Basophilic Stippling Rare (A) (none) Ovalocytes Slight (A) (none) Neutrophils % 89 (H) 38 - 82 % Lymphocytes % 5 (L) 15 - 45 % Atypical Lymphocytes % 1 (H) <=0 % Monocytes % 5 5 - 13 % Absolute Neutrophil Count 12.9 (H) 1.8 - 7.5 10*3/uL Lymphocytes Absolute 0.7 (L) 1.0 - 4.3 10*3/uL Atypical Lymphs Absolute 0.1 (H) <=0.0 10*3/uL Monocytes Absolute 0.7 0.0 - 0.9 10*3/uL Neutrophils Manual 90 Lymphocytes Manual 5 Monocytes Manual 5 Eosinophils Manual Basophils Manual Bands Manual Metamyelocytes Manual Myelocytes Manual Promyelocytes Manual Blasts Manual Atypical Lymphocytes Manual 1 Unclassified Cells, Manual CK Collection Time: 07/27/24 5:30 AM Result Value Ref Range CK 865 (H) 30 - 170 U/L Blood Gas, Arterial Collection Time: 07/27/24 6:52 AM Result Value Ref Range pH, Arterial 7.214 (L) 7.350 - 7.450 pCO2, Arterial 53.5 (H) >35.0 - <45.0 mm Hg pO2, Arterial 108.9 (H) 80.0 - 100.0 mm Hg HCO3, Arterial 21.1 21.0 - 25.0 mmol/L O2 Sat, Arterial 96.9 95.0 - 100.0 % Base Excess, Arterial -6.7 (L) -3.0 - 3.0 mmol/L CO2 Total 22.8 (L) 23.0 - 27.0 mmol/L Hgb, blood gas 9.9 Screen only g/dl Source Of Oxygen Vent Respiratory Pathogens Panel by PCR Collection Time: 07/27/24 8:21 AM Specimen: Nasopharynx; Swab Result Value Ref Range SARS-CoV-2 Not Detected Not Detected Adenovirus Not Detected Not Detected Coronavirus HKU1 Not Detected Not Detected Coronavirus NL63 Not Detected Not Detected Coronavirus 229E Not Detected Not Detected Coronavirus OC43 Not Detected Not Detected Human Metapneumovirus Not Detected Not Detected Human Rhinovirus/Enterovirus Not Detected Not Detected Influenza A Not Detected Not Detected Influenza B Not Detected Not Detected Parainfluenza 1 Not Detected Not Detected Parainfluenza 2 Not Detected Not Detected Parainfluenza 3 Not Detected Not Detected Parainfluenza 4 Not Detected Not Detected Respiratory Syncytial Virus Not Detected Not Detected Bordetella pertussis Not Detected Not Detected Bordetella parapertussis Not Detected Not Detected Chlamydia pneumoniae Not Detected Not Detected Mycoplasma pneumoniae Not Detected Not Detected POCT glucose meter Collection Time: 07/27/24 9:50 AM Result Value Ref Range Glucose 187 (H) 70 - 100 mg/dL POCT glucose meter Collection Time: 07/27/24 11:05 AM Result Value Ref Range Glucose 174 (H) 70 - 100 mg/dL POCT glucose meter Collection Time: 07/27/24 12:05 PM Result Value Ref Range Glucose 133 (H) 70 - 100 mg/dL POCT glucose meter Collection Time: 07/27/24 1:15 PM Result Value Ref Range Glucose 110 (H) 70 - 100 mg/dL POCT glucose meter Collection Time: 07/27/24 1:58 PM Result Value Ref Range Glucose 97 70 - 100 mg/dL Since admission: Recent Labs 07/26/24 1850 07/26/24 2156 07/27/24 0246 07/27/24 0530 CKTOTAL -- -- -- 865* TROPONINI 0.013 0.014 0.017 -- Recent Labs 07/27/24 0530 ALKPHOS 66 ALT 19 AST 28 BILITOT 0.3 @[facility]) ABGs:)No results for input(s): PH, PO2, PCO2, HCO3, O2SAT in the last 72 hours. No lab exists for component: BE Cultures: Blood culture #1: No lab exists for component: BC Blood culture #2: No lab exists for component: BLOODCULT2 Antiepileptic levels: No results for input(s): PHENYTOIN, PHENOBARB, VALPROATE in the last 72 hours. No lab exists for component: CARBTOT, LAMOTRIG, KEPPRA Coagulation: No results for input(s): INR in the last 72 hours. CSF: No results for input(s): CULTURE, PROTEIN in the last 72 hours. No lab exists for component: CHARCSF, CELL COUNT, GRAM STAIN Lipids: No results for input(s): CHOL, TRIG, HDL, AMYLASE, LIPASE in the last 72 hours. No lab exists for component: LDLCHOLESTEROL HgA1c: No lab exists for component: LABA1C Radiology: CT Head 07/27/24 Stable tiny right subdural hematoma as above. No acute intracranial hemorrhage or mass effect. Assessment and Plan: Sandy Deng is a 63 yo F with a history of COPD, DM, HLD, CKD who presented to OSH altered andis respiratory distress with shaking movements also found to have trace R temporal SDH. No intervention for SDH and will monitor. The shaking movements witnessed are not concerning for seizure clinically as they are irregular asynchronous myoclonic movements but she is profoundly encephalopathic sowill rule out nonconvulsive status. In the setting of COVID, renal failure on CRRT, and septic shock. If EEG negative and she does not improve with treatment of her critical medical illness will consider MRI # trace R SDH: Stable no follow up needed # COVID # septic shock # renal failure # DM # HLD - OK for DVT ppx - cEEG - Hold AED for now - MRI if cEEG negative and she remains altered despite medical improvement and normalization of toxic/metabolic factors Torito Mahajan MD Neurocritical Care I spent a total of 30 minutes in my independent critical care time for this neurocritically ill patient who is at high risk for both clinical and neurological decline due to further brain injury, which can occur unpredictably and rapidly cause multi-organ dysfunction. In that time I reviewed the chart including MAR, labs, neuroimaging, other imaging studies and discussed my diagnostic impression and patient's plan of care with my TONJA/resident/fellow/student, the consulting team and patient's family members/surrogate decision makers (in cases where the patient is incapacitated and unable to participate in their own care). * Romero Wright MD - 07/27/2024 11:41 AM EDTAssociated Order(s): IP CONSULT TO NEUROSURGERY NEUROSURGERY CONSULT NOTE Patient Name: Sandy Deng Patient : 1960 PCP: Bird Lujan History of Present Illness: 63 y/o F with PMHx of COPD, DM, HLD, CKD on ASA/Plavix who was found to have a small, right posterior temporal acute SDH for which neurosurgery has been consulted. Per report, patient initially presented to [facility] with respiratory distress and delirium.She was ultimately found to have COVID infection. CT brain obtained due to confusion and AMS was notable for an acute right temporal SDH. No known trauma. No reported falls. Past Medical History: Past Medical History: Diagnosis Date COPD (chronic obstructive pulmonary disease) ([facility]) Diabetic neuropathy (HCC) Hyperlipidemia Myocardial infarct (HCC) Stage 4 chronic kidney disease (HCC) Type 1 diabetes (HCC) Past Surgical History: Past Surgical History: Procedure Laterality Date CORONARY ANGIOPLASTY WITH STENT PLACEMENT CORONARY ANGIOPLASTY WITH STENT PLACEMENT Home Medications: Prior to Admission medications Medication Sig Start Date End Date Taking? Authorizing Provider gabapentin (Neurontin) 800 MG tablet 400 mg noon 800 mg at night Historical Provider, Allergies: Patient has no allergy information on record. Social History: TOBACCO: has no history on file for tobacco use. ETOH: has no history on file for alcohol use. RECREATIONAL DRUG USE: Social History Substance and Sexual Activity Drug Use Not on file Family History: No family history on file. Review of Systems: Review of Systems Unable to obtain given her intubated/sedated status. Physical Examination: Vitals: 07/27/24 1000 BP: Pulse: 78 Resp: 14 Temp: SpO2: 97% Physical Exam Neurological Exam Intubated/sedated ETT in place PERRL BUE moves spontaneously and purposefully BLE moves antigravity to noxious stimulus Results Labs: Last 24hrs Recent Results (from the past 24 hour(s)) ECG 12 lead Collection Time: 07/26/24 5:30 PM Result Value Ref Range Heart Rate 63 bpm QRSD Interval 89 ms QT Interval 448 ms QTC Interval 459 ms P [place] 82 degrees QRS [place] -71 degrees T Wave [place] 88 degrees [place] Interval 98 ms Procalcitonin Test Collection Time: 07/26/24 6:50 PM Result Value Ref Range PROCALCITONIN 2.48 (H) 0.00 - 0.09 ng/mL Troponin, with Serial Reflex Collection Time: 07/26/24 6:50 PM Result Value Ref Range TROPONIN I 0.013 <0.034 ng/mL CBC auto differential Collection Time: 07/26/24 6:50 PM Result Value Ref Range Auto WBC 18.7 (H) 3.6 - 10.7 10*3/uL RBC 3.53 (L) 3.80 - 5.20 10*6/uL Hemoglobin 10.1 (L) 11.7 - 16.0 g/dL Hematocrit 31.3 (L) 35.0 - 47.0 % MCV 88.7 77.0 - 99.0 fL MCH 28.6 26.0 - 34.0 pg MCHC 32.3 30.5 - 36.0 % RDW 15.5 (H) 11.5 - 15.0 % Platelets 244 140 - 440 10*3/uL MPV 11.0 9.0 - 12.7 fL nRBC 1.1 0.0 - 2.0 /100 WBCs Neutrophils Relative 85.8 (H) 38.0 - 82.0 % Lymphocytes Relative 6.2 (L) 15.0 - 45.0 % Monocytes Relative 7.2 5.0 - 13.0 % Eosinophils Relative 0.1 0.0 - 6.0 % Basophils Relative 0.1 0.0 - 2.0 % Immature Grans % 0.6 0.0 - 2.0 % Neutrophils Absolute 16.1 (H) 1.8 - 7.5 10*3/uL Lymphocytes Absolute 1.2 1.0 - 4.3 10*3/uL Monocytes Absolute 1.4 (H) 0.0 - 0.9 10*3/uL Eosinophils Absolute 0.0 0.0 - 0.5 10*3/uL Basophils Absolute 0.0 0.0 - 0.2 10*3/uL Immature Grans Absolute 0.1 (H) <0.1 10*3/uL Comprehensive metabolic panel Collection Time: 07/26/24 6:50 PM Result Value Ref Range SODIUM 125 (L) 135 - 145 mmol/L POTASSIUM 5.5 (H) 3.5 - 5.1 mmol/L CHLORIDE 98 98 - 107 mmol/L CARBON DIOXIDE 17 (L) 22 - 30 mmol/L ANION GAP 10 3 - 13 mmol/L UREA NITROGEN 76 (H) 7 - 17 mg/dL CREATININE 4.56 (H) 0.52 - 1.04 mg/dL GLUCOSE 252 (H) 70 - 100 mg/dL CALCIUM 5.5 (LL) 8.4 - 10.4 mg/dL AST (SGOT) 40 15 - 46 U/L ALT 21 0 - 34 U/L ALKALINE PHOSPHATASE 68 38 - 126 U/L ALBUMIN 2.9 (L) 3.5 - 5.0 g/dL BILIRUBIN, TOTAL 0.5 0.2 - 1.3 mg/dL TOTAL PROTEIN 5.5 (L) 6.3 - 8.2 g/dL eGFR 10.2 (L) >60.0 mL/min/1.73m*2 Magnesium Collection Time: 07/26/24 6:50 PM Result Value Ref Range MAGNESIUM 1.5 (L) 1.6 - 2.3 mg/dL Phosphorus Collection Time: 07/26/24 6:50 PM Result Value Ref Range PHOSPHORUS 8.5 (H) 2.5 - 4.5 mg/dL Calcium, ionized Collection Time: 07/26/24 6:50 PM Result Value Ref Range Calcium, Ion 2.80 (L) 4.30 - 5.20 mg/dL PH, IONIZED CALCIUM 7.29 (L) 7.31 - 7.46 Lactic acid with reflex Collection Time: 07/26/24 6:50 PM Result Value Ref Range LACTIC ACID 0.9 0.7 - 2.0 mmol/L TSH Collection Time: 07/26/24 6:50 PM Result Value Ref Range THYROID STIMULATING HORMONE 3.472 0.465 - 4.680 uIU/mL Hemoglobin A1c Collection Time: 07/26/24 6:50 PM Result Value Ref Range HEMOGLOBIN A1C 6.2 (H) <5.7 % ESTIMATED AVERAGE GLUCOSE 131 mg/dL Osmolality, urine Collection Time: 07/26/24 7:58 PM Result Value Ref Range OSMOLALITY, URINE 316 300 - 1,000 mOsm/kg Sodium, urine, random Collection Time: 07/26/24 7:58 PM Result Value Ref Range SODIUM, URINE 31 30 - 90 mmol/L Creatinine, urine, random Collection Time: 07/26/24 7:58 PM Result Value Ref Range CREATININE, URINE 96.9 No Range mg/dL Legionella and Streptococcus Urine Antigen Collection Time: 07/26/24 7:58 PM Specimen: Urine, Clean Catch Result Value Ref Range Legionella pneumophila Ag Not Detected Not Detected Streptococcus pneumoniae Ag Not Detected Not Detected Troponin I Collection Time: 07/26/24 9:56 PM Result Value Ref Range TROPONIN I 0.014 <0.034 ng/mL Osmolality Collection Time: 07/26/24 9:56 PM Result Value Ref Range OSMOLALITY, SERUM 309 (H) 280 - 300 mOsm/kg Blood Gas, Arterial Collection Time: 07/26/24 10:32 PM Result Value Ref Range pH, Arterial 7.166 (LL) 7.350 - 7.450 pCO2, Arterial 30.4 (L) >35.0 - <45.0 mm Hg pO2, Arterial 95.4 80.0 - 100.0 mm Hg HCO3, Arterial 10.7 (L) 21.0 - 25.0 mmol/L O2 Sat, Arterial 94.9 (L) 95.0 - 100.0 % Base Excess, Arterial -16.5 (L) -3.0 - 3.0 mmol/L CO2 Total 11.7 (L) 23.0 - 27.0 mmol/L Hgb, blood gas 8.1 Screen only g/dl Source Of Oxygen Vent POCT glucose meter Collection Time: 07/27/24 1:50 AM Result Value Ref Range Glucose 320 (H) 70 - 100 mg/dL Troponin I Collection Time: 07/27/24 2:46 AM Result Value Ref Range TROPONIN I 0.017 <0.034 ng/mL Pneumonia PCR Panel Collection Time: 07/27/24 2:53 AM Specimen: Sputum Result Value Ref Range Staphylococcus aureus Detected (A) Not Detected mecA Not Detected Not Detected Streptococcus agalactiae Not Detected Not Detected Streptococcus pneumoniae Not Detected Not Detected Streptococcus pyogenes Not Detected Not Detected Haemophilus influenzae Not Detected Not Detected Moraxella catarrhalis Not Detected Not Detected Acinetobacter baumannii complex Not Detected Not Detected Enterobacter cloacae complex Not Detected Not Detected Escherichia coli Not Detected Not Detected Klebsiella (Enterobacter) aerogenes Not Detected Not Detected Klebsiella oxytoca Not Detected Not Detected Klebsiella pneumoniae Not Detected Not Detected Proteus spp Not Detected Not Detected Pseudomonas aeruginosa Detected (A) Not Detected Serratia marcescens Not Detected Not Detected CTX-M Detected (A) Not Detected Chlamydia pneumoniae Not Detected Not Detected Legionella pneumophila Not Detected Not Detected Mycoplasma pneumoniae Not Detected Not Detected Adenovirus Not Detected Not Detected Coronavirus Detected (A) Not Detected Human Metapneumovirus Not Detected Not Detected Human Rhinovirus/Enterovirus Not Detected Not Detected Influenza A Not Detected Not Detected Influenza B Not Detected Not Detected Parainfluenza virus Not Detected Not Detected Respiratory Syncytial Virus Not Detected Not Detected Respiratory culture and Stain Collection Time: 07/27/24 2:54 AM Specimen: Sputum Result Value Ref Range Respiratory culture Culture in progress Gram Stain Result (A) Many Polymorphonuclear leukocytes per low power field Gram Stain Result Few Epithelial cells per low power field (A) Gram Stain Result Moderate Gram positive cocci (A) POCT glucose meter Collection Time: 07/27/24 5:17 AM Result Value Ref Range Glucose 283 (H) 70 - 100 mg/dL CBC auto differential Collection Time: 07/27/24 5:30 AM Result Value Ref Range Auto WBC 14.5 (H) 3.6 - 10.7 10*3/uL RBC 3.09 (L) 3.80 - 5.20 10*6/uL Hemoglobin 8.8 (L) 11.7 - 16.0 g/dL Hematocrit 27.2 (L) 35.0 - 47.0 % MCV 88.0 77.0 - 99.0 fL MCH 28.5 26.0 - 34.0 pg MCHC 32.4 30.5 - 36.0 % RDW 15.3 (H) 11.5 - 15.0 % Platelets 186 140 - 440 10*3/uL MPV 10.4 9.0 - 12.7 fL Magnesium Collection Time: 07/27/24 5:30 AM Result Value Ref Range MAGNESIUM 2.0 1.6 - 2.3 mg/dL Phosphorus Collection Time: 07/27/24 5:30 AM Result Value Ref Range PHOSPHORUS 6.8 (H) 2.5 - 4.5 mg/dL Calcium, ionized Collection Time: 07/27/24 5:30 AM Result Value Ref Range Calcium, Ion 3.70 (L) 4.30 - 5.20 mg/dL PH, IONIZED CALCIUM 7.22 (L) 7.31 - 7.46 T4, free Collection Time: 07/27/24 5:30 AM Result Value Ref Range FREE T4 1.67 0.78 - 2.19 ng/dL Comprehensive metabolic panel Collection Time: 07/27/24 5:30 AM Result Value Ref Range SODIUM 130 (L) 135 - 145 mmol/L POTASSIUM 4.3 3.5 - 5.1 mmol/L CHLORIDE 101 98 - 107 mmol/L CARBON DIOXIDE 18 (L) 22 - 30 mmol/L ANION GAP 11 3 - 13 mmol/L UREA NITROGEN 66 (H) 7 - 17 mg/dL CREATININE 4.00 (H) 0.52 - 1.04 mg/dL GLUCOSE 254 (H) 70 - 100 mg/dL CALCIUM 6.5 (L) 8.4 - 10.4 mg/dL AST (SGOT) 28 15 - 46 U/L ALT 19 0 - 34 U/L ALKALINE PHOSPHATASE 66 38 - 126 U/L ALBUMIN 2.4 (L) 3.5 - 5.0 g/dL BILIRUBIN, TOTAL 0.3 0.2 - 1.3 mg/dL TOTAL PROTEIN 4.9 (L) 6.3 - 8.2 g/dL eGFR 11.9 (L) >60.0 mL/min/1.73m*2 MANUAL DIFFERENTIAL (CELLAVISION) Collection Time: 07/27/24 5:30 AM Result Value Ref Range RBC Morphology abnormal Anisocytosis Slight (A) (none) Poikilocytes Slight (A) (none) Macrocytes Slight (A) (none) Microcytes Slight (A) (none) Polychromasia Slight (A) (none) Basophilic Stippling Rare (A) (none) Ovalocytes Slight (A) (none) Neutrophils % 89 (H) 38 - 82 % Lymphocytes % 5 (L) 15 - 45 % Atypical Lymphocytes % 1 (H) <=0 % Monocytes % 5 5 - 13 % Absolute Neutrophil Count 12.9 (H) 1.8 - 7.5 10*3/uL Lymphocytes Absolute 0.7 (L) 1.0 - 4.3 10*3/uL Atypical Lymphs Absolute 0.1 (H) <=0.0 10*3/uL Monocytes Absolute 0.7 0.0 - 0.9 10*3/uL Neutrophils Manual 90 Lymphocytes Manual 5 Monocytes Manual 5 Eosinophils Manual Basophils Manual Bands Manual Metamyelocytes Manual Myelocytes Manual Promyelocytes Manual Blasts Manual Atypical Lymphocytes Manual 1 Unclassified Cells, Manual Blood Gas, Arterial Collection Time: 07/27/24 6:52 AM Result Value Ref Range pH, Arterial 7.214 (L) 7.350 - 7.450 pCO2, Arterial 53.5 (H) >35.0 - <45.0 mm Hg pO2, Arterial 108.9 (H) 80.0 - 100.0 mm Hg HCO3, Arterial 21.1 21.0 - 25.0 mmol/L O2 Sat, Arterial 96.9 95.0 - 100.0 % Base Excess, Arterial -6.7 (L) -3.0 - 3.0 mmol/L CO2 Total 22.8 (L) 23.0 - 27.0 mmol/L Hgb, blood gas 9.9 Screen only g/dl Source Of Oxygen Vent POCT glucose meter Collection Time: 07/27/24 9:50 AM Result Value Ref Range Glucose 187 (H) 70 - 100 mg/dL POCT glucose meter Collection Time: 07/27/24 11:05 AM Result Value Ref Range Glucose 174 (H) 70 - 100 mg/dL Radiology Personal review: CT brain imaging reviewed and discussed with other providers in the care team. In my interpretation, imaging shows a very small (~3mm) posterior temporal, acute SDH. When compared to her OSH imaging,hematoma appears stable. ASSESSMENT / PLAN : Overall, Sandy suffered a small, right posterior temporal acute SDH. Imaging is reassuring and appears stable compared to OSH records. No neurosurgical intervention anticipated or planned at this time. I recommend continued medical optimization and treatment of her multiple co-morbidities and COVID infection. Please have patient follow up with my team in clinic within 2 weeks of discharge for repeat CT brain imaging. Please continue to hold Plavix until that imaging is reviewed. Neurosurgery to sign-off at this time Romero Wright MD [facility] Neurosurgery I spent 60 minutes of my independent time evaluating the patient, reviewing the medical record, andcounseling/coordinating care regarding her acute SDH. * Karyn Jones MD - 07/27/2024 10:12 AM EDTAssociated Order(s): IP CONSULT TO NEPHROLOGY Images from the original note were not included. Initial Nephrology Consult Note Patient: Sandy Deng Room number: T2-/T2 A Date of Admit: 07/26/2024 LOS: 1 days Referring physician: Kena Heath DO Outpatient X Ray Inspector: Christy Huerta Reason for Consult: Asked to see/evaluate by primary service for opinion regarding: UMA on CKD Assessment/Plan: 1. UMA, anuric - Cr has been 2.4-2.8, last (04/26) Cr 2.4 eGFR 20 - On admit, (07/26) Cr 4.56, lowest SBP 90s, got 1 L NS bolus, on levo gtt (vasopressin now dc). Continues to be on bicarb gtt. CRRT initiated via L internal jugular non-tunneled dialysis cath 07/26, running even - suspect started as prerenal -> ATN (prolonged prerenal/shock). Need to r/o infectious GN, obstruction - check ua, Fena (if urine available), CK, C3/C4, renal us - cont CRRT running even (hemodynamic instability, persistent acidosis) - monitor K, phos, iCa: expect to drop with CRRT 2. CKD 4 - follows with Dr Christy Huerta ([place]). - On review of available labs, Cr has been 2.4-2.8, last (04/26) Cr 2.4 eGFR 20, 24 hr pwdayft=5653 mg. - Home med includes losartan 25 mg daily 3. Electrolytes - Hyponatremia, Na was 125, improving - Hyperkalemia - improving with CRRT, bicarb gtt 4. Acid-base - bicarb now 18 - lactate 0.9 - last pH 7.2, HCO3 21, pCO2 53 - bicarb gtt - should get better with CRRT 5. BMD; Secondary HPT - hypocalcemia: iCa 3.7. team repleting. Monitor iCa daily and repeat if low (expect to drop with CRRT) - hyperphosphatemia, improving with CRRT - can check 25, iPTH 6. Anemia - plts normal - defer pRBC needs to primary 7. Acute resp failure/COVID - intubated, per CCM - remdesivir/steroids/cefepime 8. Altered MS R SDH - Trauma following - Neurocrit consulted ADDENDUM: Last ABG showing pH 7.3, HCO3 25, pCO2 42 Cr 2.82, K 3.6, bicarb 25 Switching to all 4K bags Discontinue bicarb gtt Will follow along as directed. Thank you for allowing us to participate in the care of this patient. HPI: Sandy Deng is a 63 y.o. female with a past medical history of: COPD (3L O2 baseline), DM type 1, CKD 4, HTN, CAD (PCI with stents in 2017). who was admitted by,Ino Conte MD, for SDH (subdural hematoma) ([facility]) [S06.5XAA]. Mrs. Deng is a 63 year old female with PMH of COPD (3L O2 baseline), DM type 1, CKD 4, HTN, CAD (PCI with stents in 2017). initially presentingwith resp distress and delirium, found to be hypoxic and hypercarbic, Covid positive. She was eventually intubated. CT head showed a small right sided SDHvs epidural hematoma and patient was transferred to [facility]. She was placed on levophed. Initial labs showed Na 125 K 5.5 bicarb 17 BUN 76 creat 4.56 Ca 5.5 (calcium chloride ordered) phosp 8.5 WBC 18.7 Hgb 10.1. ABG with pH of 7.156 pCO2 of 30. Oligoanuric. Was on bicarb gtt but then needed CRRT initiation for severe acidosis in setting of hemodynamic instability. Consulted for CKD 4 - follows with Dr Christy Huerta ([place]). On review of available labs, Cr has been 2.4-2.8, last (04/26) Cr 2.4 eGFR 20, 24 hr wjktpbr=8485 mg. Home med includes losartan 25 mg daily. On admit, (07/26) Cr 4.56, lowest SBP 90s, got 1 L NS bolus, on levo gtt (vasopressin now dc). Co ntinues to be on bicarb gtt,. Contrast exposure: none Nephrotoxic drug exposure: no documented use of aminoglycosides or NSAIDs. Hypotensive episodes: none documented. Home medications/pre-hospital medications reviewed. Notable for: losartan 25 mg daily PMHx: Past Medical History: Diagnosis Date COPD (chronic obstructive pulmonary disease) (HCC) Diabetic neuropathy (HCC) Hyperlipidemia Myocardial infarct (HCC) Stage 4 chronic kidney disease (HCC) Type 1 diabetes (HCC) Past Surgical History: Past Surgical History: Procedure Laterality Date CORONARY ANGIOPLASTY WITH STENT PLACEMENT CORONARY ANGIOPLASTY WITH STENT PLACEMENT Family History: No family history on file. Social History: Social History Socioeconomic History Marital status: Spouse name: Not on file Number of children: Not on file Years of education: Not on file Highest education level: Not on file Occupational History Not on file Tobacco Use Smoking status: Not on file Smokeless tobacco: Not on file Substance and Sexual Activity Alcohol use: Not on file Drug use: Not on file Sexual activity: Not on file Other Topics Concern Not on file Social History Narrative Not on file Social Determinants of Health Financial Resource Strain: Not on file Food Insecurity: Not on file Transportation Needs: Not on file Physical Activity: Not on file Stress: Not on file Social Connections: Not on file Intimate Partner Violence: Not on file Housing Stability: Not on file Medications: Scheduled Meds:calcium gluconate, 3,000 mg, IntraVENous, Once cefepime, 1,000 mg, IntraVENous, q12h dexAMETHasone, 6 mg, IntraVENous, q24h Glycopyrrolate-Formoterol, 2 puff, Inhalation, BID ipratropium-albuterol, 3 mL, Nebulization, BID mupirocin, 1 Application, Nasal, BID pantoprazole (ProtoNix) 40 mg in sodium chloride (PF) 0.9 % 10 mL injection, 40 mg, IntraVENous, BID remdesivir (Veklury) 100 mg in sodium chloride 0.9 % 250 mL IVPB, 100 mg, IntraVENous, q24h Continuous Infusions:fentaNYL, 25-200 mcg/hr, Last Rate: 75 mcg/hr (07/27/24828) insulin regular, 1-50 Units/hr, Last Rate: 2 Units/hr (07/27/2457) norepinephrine, 2-100 mcg/min, Last Rate: 7 mcg/min (07/27/24827) PrismaSol BGK 2/3.5, 750 mL/hr, Last Rate: 750 mL/hr (07/27/24934) PrismaSol BGK 2/3.5, 750 mL/hr, Last Rate: 750 mL/hr (07/27/24934) PrismaSol BGK 2/3.5, 750 mL/hr, Last Rate: 750 mL/hr (07/27/24933) propofol, 5-50 mcg/kg/min, Last Rate: 15 mcg/kg/min (07/27/24 0829) sodium bicarbonate 150 mEq in sterile water 1,000 mL infusion, 75 mL/hr, Last Rate: 75 mL/hr (07/27/24 0732) Allergies: Not on File Review of Systems: Unable to perform ROS, pt intubated Physical Exam: Vitals: 07/27/24 0715 07/27/24 0730 07/27/24 0745 07/27/24 0800 BP: BP Location: Pulse: 51 55 58 56 Resp: 14 14 14 14 Temp: (!) 35.7 C (96.3 F) TempSrc: Temporal SpO2: 98% 98% 99% 98% Weight: Today's weight: Weight: 48 kg (105 lb 13.1 oz) Admission weight: Weight: 48 kg (105 lb 13.1 oz) Wt Readings from Last 3 Encounters: 07/26/24 48 kg (105 lb 13.1 oz) There is no height or weight on file to calculate BMI. @IODETAILS@ Intake/Output Summary (Last 24 hours) at 07/27/2024 1013 Last data filed at 07/27/2024 0942 Gross per 24 hour Intake 2888 ml Output 724 ml Net 2164 ml Urethral Catheter-Output (mL): 23 mL FIO2 needs: No data found. General Appearance no acute distress, intubated, sedated HEENT Neck anicteric sclera, moist mucus membranes, normal external ears/nares, no facial edema Supple neck, midline trachea without tracheal deviation, no palpable cervical or supraclavicular lymph nodes Chest symmetric, normal shape/expansion, no chest wall/sternal tenderness Heart Regular, sl chantell, no audible pericardial rubs, no audible murmurs, no palpable LV heave. Lungs Fine rales, easy effort on vent Abdomen Skin soft without distension, normal bowel sounds, no grimacing on palpation no rash or subcutaneous nodules, warm and dry skin with good turgor Musculoskeletal no leg edema, normal hair distribution on legs johnson catheter present Neurologic no resting tremor, diffuse irregular asynchronous myoclonic movements Psychiatric Unable to assess LABS: Recent Labs 07/26/24 1850 07/26/24 2232 07/27/24 0530 07/27/24 0652 WBC 18.7* -- 14.5* -- HGB 10.1* 8.1 8.8* 9.9 HCT 31.3* -- 27.2* -- MCV 88.7 -- 88.0 -- PLT 244 -- 186 -- No results found for: IRON, TIBC, FERRITIN No results found for: [id number], FOLATE Recent Labs 07/26/24 1850 07/27/24 0530 NA 125* 130* K 5.5* 4.3 CL 98 101 CO2 17* 18* BUN 76* 66* CREATININE 4.56* 4.00* GLUCOSE 252* 254* CALCIUM 5.5* 6.5* MG 1.5* 2.0 PHOS 8.5* 6.8* ANIONGAP 10 11 Lab Results Component Value Date CAION 3.70 (L) 07/27/2024 Lab Results Component Value Date ALT 19 07/27/2024 AST 28 07/27/2024 No results for input(s): INR, PROTIME, PTT in the last 72 hours. No results for input(s): COLORU, CLARITYU, PH, PHUR, LABSPEC, GLUCOSEU, BLOODU, LEUKOCYTESUR, NITRITE, BILIRUBINUR, UROBILINOGEN, BACTERIA, AMORPHOUS, CASTS in the last 72hours. No lab exists for component: PROTEINUA, KEYTONESU, RBCUA, WBCUA, CRYSTAL Recent Labs 07/26/241957 NAUR 31 Diagnostic Studies: TTE: CXR: reviewed in PACS Personally reviewed MARS, labs, radiologic studies and notes. Karyn Jones MD Pager [phone] [facility] [phone] Greater than 65 min of time spent on prepping chart, reviewing outpt pcp/consultant education notes/cumulative labs, imaging, FTF time, interpretation of results, devt of POC, documentation and coordination ofcare * Simone Momin DO - 07/26/2024 5:59 PM EDT Images from the original note were not included. Internal Medicine: MICU Initial Consult Name: Sandy Deng : 1960(63 y.o.) Date: 07/26/24 Attending: Dr. Knox Subjective: Chief Complaint: Hypoxia HPI: Sandy Deng is a 63 year old female with a PMHx of COPD (3L O2 baseline), DM, CKD 4, HTN, CAD (PCI with stents in 2017). at bedside. Pt was admitted to [facility] due to confusion and hallucinations. Pt has had episodes of staring off into space per family. Was found to have a subdural hematoma. She reportedly had a fall 1 month ago from bed. states she hit her head on the nightstand. She is on Plavix and ASA for a stent placed 7 years ago. Pt tested positive for COVID on 07/24. Today at [facility] ICU she had worsening hypoxia and was placed on NIV but failed. Was ultimately intubated. Noted to be hypotensive and started on levophed. Pt was transferred to [facility] for higher level of care. On arrival she was noted to have reduced urine output. Pt reportedly with CKD 4 andfamily states has been told in the past she may need HD in the future. Pt has a hx of intention tremor. SEP-1 CORE MEASURE DATA SIRS Criteria Sepsis Criteria Severe Sepsis Criteria Septic Shock Criteria Must meet 2: [] Temperature > 100.4 F (38 C) or < 96.8 F (36 C) [] HR > 90 [x] RR > 20 [x] WBC > 12 or < 4 or 10% bands Must be confirmed or suspected to move forward with diagnosis of sepsis. Must select at least one: [x] Bacterial Infection Confirmed or Suspected. [] Viral Infection Confirmed or Suspected. [] No infection present. Patient does not meet criteria for Sepsis. Must meet 1: [] Lactate > 2 or [x] Signs of Organ Dysfunction: - SBP < 90 or MAP < 65 - Altered mental status - Creatinine > 2 or increased from baseline - Urine Output < 0.5 ml/kg/hr - Bilirubin > 2 - INR > 1.5 - Platelets < 100,000 - Acute Respiratory Failure as evidenced by new need for NIPPV or mechanical ventilation [] No criteria met for Severe Sepsis. Must meet 1: [] Lactate = or > 4 or [x] SBP < 90 or MAP < 65 for at least two readings in the first hour after fluid bolus administration [] No criteria met for Septic Shock. No data found. Recent Labs 07/26/24 1850 WBC 18.7* LACTATE 0.9 CREATININE 4.56* BILITOT 0.5 PLT 244 Sepsis Identified at 1850 hours. Fluid Resuscitation Rational: Due to concern for fluid overload, ordered less than 30cc/kg actual body weight. Actual fluid amount given: 1000 mL Infection Source: Pulmonary - Community Acquired Reassessment Exam: SEPSIS REASSESSMENT I examined the patient 07/26/2024 10:23 PM Vital Signs:BP (!) 150/46 Pulse 62 Temp 36.7 C (98.1 F) (Temporal) Resp 20 Wt 48 kg (105 lb13.1 oz) SpO2 99% Cardiac examination significant for: Regular rate and rhythm Pulmonary examination significant for: Crackles Capillary refill is: brisk Peripheral Pulse is: 2+ Skin is: Normal Simone Momin DO Past Medical History: Diagnosis Date COPD (chronic obstructive pulmonary disease) (HCC) Diabetic neuropathy (HCC) Hyperlipidemia Myocardial infarct (HCC) Stage 4 chronic kidney disease (HCC) Type 1 diabetes (HCC) Past Surgical History: Procedure Laterality Date CORONARY ANGIOPLASTY WITH STENT PLACEMENT CORONARY ANGIOPLASTY WITH STENT PLACEMENT No family history on file. Social History Socioeconomic History Marital status: Spouse name: Not on file Number of children: Not on file Years of education: Not on file Highest education level: Not on file Occupational History Not on file Tobacco Use Smoking status: Not on file Smokeless tobacco: Not on file Substance and Sexual Activity Alcohol use: Not on file Drug use: Not on file Sexual activity: Not on file Other Topics Concern Not on file Social History Narrative Not on file Social Determinants of Health Financial Resource Strain: Not on file Food Insecurity: Not on file Transportation Needs: Not on file Physical Activity: Not on file Stress: Not on file Social Connections: Not on file Intimate Partner Violence: Not on file Housing Stability: Not on file Not on File Prior to Admission medications Not on File Objective: Oxygen Delivery: VITALS: BP (!) 150/46 Pulse 62 Temp 36.7 C (98.1 F) (Temporal) Resp 20 Wt 48 kg (105 lb 13.1 oz) SpO2 99% CURRENT PULSE OXIMETRY: SpO2: 99 % Review of Systems Unable to perform ROS: Intubated Constitutional: General Appearance [x]WDWN []Obese []Cachectic []Thin []Ill Eyes: Inspection of Pupils/Irises Pupils round and react: [x]Yes []No Sclera: []Icteric [x]Non-Icteric Inspection of Conjunctiva/Lids Conjunctiva: []Injected [x]Non-Injected Lids: [x]Intact []Lesion Present ENT/Mouth: External Inspection of ears/nose [] Normal [] Scar/Lesion/Mass Inspection of teeth/lips/gums Dentition: [x][place] Teeth []Dentures Lips/Gums: [x]Intact []Lesion Present Mucosa: [x][place] [x]Moist []Dry Neck: External Appearance Overall Appearance: [x]Normal []Lesion/Mass/Crepitus Present Trachea midline: [x]Yes []No Thyroid []Normal []Enlarged []Tender []Mass []Absent Respiratory: Respiratory effort []Labored []Non-Labored [x] Mechanically-Ventilated Auscultation []Clear [x]Crackles []Wheezes []Rhonchi Cardiovascular: Auscultation Rate: [x]Regular []Irregular []Tachycardia []Bradycardia Rhythm: [x]Regular []Irregular Murmur: []Present [x]Absent Extremities Peripheral Edema: []Present [x]Absent Varicosities: []Present [x]Absent Gastrointestinal: Abdomen Palpation: [x]Soft []Firm []Tender []Non-Tender []Distended [x]Non-distended Mass: []Present [x]Absent Bowel Sounds: []Present []Absent Hernia: []Present []Absent Liver/Spleen: []Hepatosplenomegaly []Organomegaly Absent Musculoskeletal: Inspection of Digits and Nails Cyanosis: []Present [x]Absent Clubbing: []Present [x]Absent Ischemia: []Present [x]Absent Infection: []Present [x]Absent Extremities ROCHE Equally: Except ([]RUE []RLE []LUE []LLE) Strength/Tone: Intact and Normal ([]RUE []RLE []LUE []LLE) Skin: Inspection [x]Normal []Rash []Lesion []Ulcer Palpation [x]Warm []Cool [x]Dry []Clammy []Nodules []Induration []Skin-tightening Cap-Refill: [] <3 sec [] >3 seconds (delayed) Neurologic: GCS EYE: 1 - No eye opening GCS MOTOR: 1 - No motor response GCS VERBAL: 1 - No response Total GCS: 15 [] Sensation grossly intact Psych: Mental Status Alert: []Yes [x] No Oriented: [x]x0 []X1 []X2 []x3 Mood/Affect []Normal []Flat []Agitated []Depressed []Anxious []Calm [x]Sedated []NAD [facility] within last 24 hours- BMP: Recent Labs 07/26/241849 NA 125* K 5.5* CL 98 CO2 17* BUN 76* CREATININE 4.56* CALCIUM 5.5* MG 1.5* PHOS 8.5* LFTs: Recent Labs 07/26/241849 AST 40 ALT 21 PROT 5.5* ALBUMIN 2.9* BILITOT 0.5 ALKPHOS 68 Glucose: Recent Labs 07/26/241849 GLUCOSE 252* Procal: Recent Labs 07/26/241849 PROCAL 2.48* CBC: Recent Labs 07/26/241849 WBC 18.7* HGB 10.1* HCT 31.3* PLT 244 MCV 88.7 RDW 15.5* Lactic Acid: Recent Labs 07/26/24 185 LACTATE 0.9 Cardiac Injury Profile: Recent Labs 07/26/241849 TROPONINI 0.013 Imaging- CT head IMPRESSION: Stable tiny right subdural hematoma as above. No acute intracranial hemorrhage or mass effect. CT c-spine IMPRESSION: 1. No cervical spine fracture. 2. Moderate right pleural effusion. 3. Emphysema. XR abd IMPRESSION: Enteric tube terminates over the stomach. CXR IMPRESSION: Changes COPD with findings suggesting vascular congestion. No focal consolidation or overt pulmonary edema. 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 Titrate to MAP of 65 Remdesivir and decadron Ceft and azithro for CAP coverage PNA PCR, Resp cx, Resp viral PCR and urine antigens pending NPO while on pressor HD ISS 7 units of lantus nightly GI Prophylaxis: Pantoprazole IV DVT Prophylaxis: SCDs BMI Classification: There is no height or weight on file to calculate BMI. overweight BMI 25-29.9 Disposition: Remain in ICU Status Critical Care Time: 45 Total critical care time caring for this patient with life threatening, unstable organ failure, including direct patient contact, management of life support systems, review of data including imaging and labs, discussions with other team members and physicians, excluding procedures. Associated attestation - Saroj Knox MD - 07/27/2024 6:47 AM EDT I have personally performed a [id number] diagnostic evaluation on this patient on date of /23/24. History, labs, imaging studies, and electronic medical record have been reviewed by me. This note documented by the [x]warehouse incentive selector []TONJA reflects my history, exam, and medical decision making. I have reviewed and agree with the care plan. Changes were made in the orders as necessary. ROS documentation was reviewed and negative unless otherwise stated in HPI. Assessment: Acute hypoxic, hypercapnic respiratory failure COVID19 pneumonia Acute metabolic encephalopathy R SDH, small/subacute Severe NAGMA UMA/CKD Plan: Continue [facility] vent support Add COVID19 rx incl decadron, remdes -->confirm COVID19 result from [facility] Follow-up micro studies and adjust abx Concern re: h/o shaking spells and sleepiness -->some rhythmic activity in ICU -->favor EEG but will defer to neuroCC input -->continue sedation until follow w/ neuroCC Appreciate Trauma, happy to take primary Place trialysis catheter, initiate CRRT d/t acidemia, etc Otw per resident note Critical care time spent reviewing labs/films, examining patient, collaborating with other physicians but excluding procedures for life threatening organ failure is 35 minutes. documented in this encounterSMercy Health St. Rita's Medical [id number] [facility] 07-27-2024 NoteAcceptable Specimen? Acceptable Specimen(Evaluation not needed) Gram Stain 3+ White Blood Cells No Epithelial cells 3+ Gram positive cocci 1+ Gram negative rodsWMemorial Health System Selby General HospitalComment on above:Performed By: #### M100.2400, M100.2000 ####[facility] [id number] [place], [phone] [facility] 07-26-2024 [facility]09-23-2024 [facility] 07-26-2024 History and physical note* Deacon Mazariegos MD - 07/26/2024 4:37 PM EDT Images from the original note were not included. [facility] SICU H&P 07/26/2024 6:01 PM Attending: Dr. Holbrook Chief Complaint: Brain Bleed History of Present Illness: 63 y.o. female presented to [facility] ED with confusion since the prior night and was found to be COVID positive, hypercarbic, hypocalcemic, and hyperkalemic with a subduralhematoma. She was intubated for respiratory failure and transferred for a trauma evaluation. Patient's states she fell and hit the front of her head about a month ago, but was not complainingof headaches or anything that made them concerned for serious head trauma. He denies any sick contacts and reports she has barely left the house this last month. He denies any significant respiratorysymptoms from his . Past Medical History: Diagnosis Date COPD (chronic obstructive pulmonary disease) (HCC) Diabetic neuropathy (HCC) Hyperlipidemia Myocardial infarct (HCC) Stage 4 chronic kidney disease (HCC) Type 1 diabetes (HCC) Past Surgical History: Procedure Laterality Date CORONARY ANGIOPLASTY WITH STENT PLACEMENT CORONARY ANGIOPLASTY WITH STENT PLACEMENT No family history on file. Social History Socioeconomic History Marital status: Spouse name: Not on file Number of children: Not on file Years of education: Not on file Highest education level: Not on file Occupational History Not on file Tobacco Use Smoking status: Not on file Smokeless tobacco: Not on file Substance and Sexual Activity Alcohol use: Not on file Drug use: Not on file Sexual activity: Not on file Other Topics Concern Not on file Social History Narrative Not on file Social Determinants of Health Financial Resource Strain: Not on file Food Insecurity: Not on file Transportation Needs: Not on file Physical Activity: Not on file Stress: Not on file Social Connections: Not on file Intimate Partner Violence: Not on file Housing Stability: Not on file Prior to Admission medications Not on File Not on File Who is healthcare POA or next of kin? Does the patient have a DNR? No Living Will? No INITIAL VITALS: Visit Vitals BP 134/53 Pulse 63 Resp 20 Wt 48 kg (105 lb 13.1 oz) SpO2 100% Review of Systems Intubated Physical Exam Constitutional: General: She is not in acute distress. Appearance: She is well-developed. HENT: Head: Normocephalic and atraumatic. Comments: ET tube, OG tube in place. Right internal jugular line in place. Mouth/Throat: Mouth: Mucous membranes are moist. Eyes: Conjunctiva/sclera: Conjunctivae normal. Comments: Pupils 2 mm bilaterally, appear nonreactive Cardiovascular: Rate and Rhythm: Normal rate and regular rhythm. Pulses: Normal pulses. Heart sounds: Normal heart sounds. Pulmonary: Effort: Pulmonary effort is normal. Breath sounds: Normal breath sounds. Abdominal: Palpations: Abdomen is soft. Tenderness: There is no guarding. Musculoskeletal: Cervical back: No rigidity. Right lower leg: No edema. Left lower leg: No edema. Skin: General: Skin is dry. Capillary Refill: Capillary refill takes more than 3 seconds. Coloration: Skin is pale. Comments: Cool extremities, feet colder than hands Neurological: Mental Status: She is alert. Comments: Intubated and sedated. Occasional clonic jerks. Does not withdraw from pain or follow commands. CBC: No results found for: WBC, RBC, HGB, HCT, MCV, MCH, MCHC, RDW, PLT, MPV BMP: No results found for: NA, K, CL, CO2, BUN, CREATININE, CALCIUM, LABGLOM, GLUCOSE, GLU Urine Toxicology: No components found for: IAMMENTA, IBARBIT, IBENZO, ICOCAINE, IMARTHC, IOPIATES, IPHENCYC IV Access: yes NG/OG: Yes Johnson: Yes Radiology: No results found. 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 (HCC) Myocardial infarction (HCC) Hyperlipidemia Diabetic neuropathy associated with type 1 diabetes mellitus (HCC) Stage 4 chronic kidney disease (HCC) PLAN: Neuro/Spine #SDH -Report of fall one month ago, otherwise no documented trauma -Head CT at midnight showed SDH, repeat CT head at 6 am showed decrease in size -Stat CT head and CT cervical spine ordered -Neurosurgery consulted, appreciate recs -Seizure ppx: Not indicated -Multimodal pain control: Scheduled acetaminophen, as needed hydromorphone -Elevate HOB 30 degrees -Neuro checks q1 hr -Wean fentanyl and propofol as tolerated #Depression Anxiety -Hold home mirtazapine and Buspar HEENT -No concerns Cardiovascular #PCI in 2018 hypertension -Hold Metoprolol 50 mg BID, ASA, and Plavix -SBP goal <150 -Antihypertensives as needed -Wean levo as tolerated, SBP goal >100 Telemetry -Stat EKG and trops with reflex ordered -Cardiology consulted #hyperlipidemia -Hold home simvastatin 40 mg daily Pulmonary #COPD Chronic hypoxic respiratory failure -On 4L at home at baseline -Follows with pulmonology outpatient -Plan to resume Home Breztri (Glycopyrrolate and formoterol), and albuterol prn -Standard O2 protocol -PRN DuoNebs -Continue steroids for COPD exacerbation -Stat ABG and Procal ordered FEN/GI -NPO with NS 75cc/hr -Antiemetics as needed -Daily BMP, CBC, Mg, Phos - MiraLAX PRN -KUB ordered #GI bleed -Tested positive for occult blood and required 3 units of pRBCs -Ordered Protonix 40 mg BID -Hold asa and plavix #CKD Stage 4 #UMA -Baseline Cr 2.4-2.8 -Cr 3.6 on presentation -Hyperkalemic at 6.2 and received calcium and kayexalate -Normal kidney US on 07/24 -Nephrology consulted -Monitor I/Os -Goal UOP > 0.5 ml/kg/hr Endocrine #DMT1 -On Dexcom -Consulted Endocrine -remove pump -start insulin GGT -will see tomorrow #Ostoeporosis Prolia Heme -Hgb stable -No transfusions indicated ID #[id number] -Tested positive on 07/24 -Restarted on Steroids, ceftriaxone, azithromycin from OSH -muciporcin MRSA decolonization ordered -Procal ordered Lines/Devices -PIV -ET tube -Johnson -OG Prophylaxis DVT: SCDs, no chemoppx Has DVT PPX been started? No If no, why? Patient with Acute Head Bleed GI: Protonix 40 mg bid Pressure Ulcer: Continue to monitor, every 2 hour turns Musculoskeletal -PT/OT when applicable -All extremities: AT Is the patient in restraints?: No Medications Reconciled- Yes [] NO [], has been ordered Disposition: Admit to SICU, may transfer to MICU (stable CT head, very medically ill, trauma history was remote) Case discussed with Batool Arzate MD Associated attestation - Ino Conte MD - 07/27/2024 1:47 AM EDT Images from the original note were not included. ATTENDING ADDENDUM I personally supervised the resident or DIGITAL DESIGN ENGINEER/PAEliaC in the evaluation and development of a treatment plan for this patient on the same day of service as above. I personally discussed the review of systems and interviewed the patient along with performing a physical examination. In addition, I discussed the patient's condition and treatment options with him/her when possible. All of the patient's questions were answered and family updated when appropriate and possible. I performed a physical exam and ROS on the same date of service as above. My findings agree with the above note except for any details corrected below. Patient Active Problem List Diagnosis SDH (subdural hematoma) (HCC) COPD (chronic obstructive pulmonary disease) (HCC) Type 1 diabetes mellitus with kidney complication (HCC) Myocardial infarction (HCC) Hyperlipidemia Diabetic neuropathy associated with type 1 diabetes mellitus (HCC) Stage 4 chronic kidney disease (HCC) ASSESSMENT: 63F with multiple medical co-morbidities including Type I DM, COPD on 4L home O2, CKD, on ASA/Plavix who initially presented to [facility] on 07/23 (3 days ago) with acute respiratory distress and acute delirium. She was found to be hypoxic and hypercarbic, and COVID positive. She continued to be delirious and did not tolerate NIV, and today required intubation. A CT head was done to evaluate her altered mental status, and she was found to have a small acute right sided SDH vs.epidural hematoma. For this reason, JOE horn consulted for further neurologic management and she was transferred to SICU. I spoke to the patient's , son, and sister who were present at the patient's bedside. They report that leading up to her visit to [facility] ED she was acting delirious and frequently getting outof bed in the middle of night. She may have hit her head during one of these episodes, however she did not have a fall or witnessed head trauma during her brief hospitalization at [facility]. I reviewed her CT head from [facility] at 0100 this AM (07/26), with a repeat CT head around 1200. These demonstrated a small (3mm) acute SDH vs epidural hematoma in the posterior right temporallobe, which decreased in size to 2 mm on repeat [address] head. On arrival to , she is on Levophed to maintain MAP > 65. She is non- tachycardic. Repeat CT head and CT C-spine were obtained. CT C-spine negative for fractures. CT head demonstrated a stable tiny R SDH. Labs are significant for multiple electrolyte disturbances including: Hyponatremia (Na 125) Hyperkalemia (K 5.5) Hypocalcemia ( iCa 2.8) Hypomagnesemia (Mag 1.5) Leukocytosis (WBC 18.7) Uremia (BUN 76, Cr 4.56) Hyperglycemia (glucose 252) Metabolic acidosis (pH 7.16/30/95, base deficit -16.5, serum bicarb 17) Given that the extent of her medical problems outweighs the tiny, stable R SDH, which is probably an incidental finding, I recommend Medical ICU takes over as the primary team. - NSG consulted for R SDH, and I personally spoke to Dr. Wright on the phone and discussed her CT scan findings. No indication for acute intervention. Hold Plavix. - COVID: ID consult - consider CRRT for possible uremia contributing to metabolic encephalopathy - consider sepsis work-up given leukocytosis, and gross electrolyte abnormalities - consider CT abdomen/pelvis if no obvious etiology of symptoms Trauma will continue to follow. Critical Care time spent 45 min. The time involved in the performance of this care was exclusive ofseparately billable procedures, teaching time and treating other patients. The time was spent personally by the attending physician for the following activities: examination of the patient, ordering and/or performing treatment, reviewing the laboratory and radiographic studies, and if applicable, ventilator management and blood gas interpretation. Critical Care was necessary because of an illness or injury that actively impaired one or more vital organ systems such that there was a high probability of imminent life treatening deterioration in the patient's condition. The following organ systems are involved: Neurologic, Respiratory Ino Conte MD Division of Trauma Department of Surgery [facility] documented in this [facility]09-23-2024 [facility]07-18-2023 Procedure [facility] CenterChief [facility] Narrative - Reported* ChiefComplaintFreeTextNoteForm_: * Kidney transplant surgical evaluation for potential active candidacy on kidney transplant list [id number] [address] Work Phone: Evaluation note* Diagnosis Onset Date Resolution Status CKD (chronic kidney disease) stage 4, GFR 15-29 ml/min chronic Diabetes chronic Essential (primary) hypertension chronic Tobacco abuse [facility] Work Phone: Evaluation note* Diagnosis Onset Date Resolution Status CKD (chronic kidney disease) stage 4, GFR 15-29 ml/min chronic Diabetes chronic Essential (primary) hypertension chronic Tobacco abuse chronic Chronic obstructive pulmonary disease chronic Smoking greater than 30 pack years [facility] Work Phone: Evaluation note* Diagnosis Onset Date Resolution Status Chronic obstructive pulmonary disease chronic Respiratory failure with hypoxia chronic Smoking greater than 30 pack years chronic Fissure in skin of foot acut e CKD (chronic kidney disease) stage 4, GFR 15-29 ml/min chronic DM type 1 (diabetes mellitus, type 1) chronic Tobacco abuse [facility] Work Phone: Evaluation note* Diagnosis Onset Date Resolution Status Fissure in skin of foot acut e CKD (chronic kidney disease) stage 4, GFR 15-29 ml/min chronic DM type 1 (diabetes mellitus, type 1) chronic Tobacco abuse chronic Chronic obstructive pulmonary disease chronic Smoking greater than 30 pack years [facility] Work Phone: evaluation note* Diagnosis Onset Date Resolution Status CKD (chronic kidney disease) stage 4, GFR 15-29 ml/min chronic DM type 1 (diabetes mellitus, type 1) chronic Hyperlipidemia chronic 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 Atherosclerosis of coronary artery of [place] heart without angina pectoris chronic Chronic obstructive pulmonary disease chronic Cigarette nicotine dependence [facility] Work Phone: evaluation note* Diagnosis Onset Date Resolution Status Atherosclerosis of coronary artery of [place] heart without angina pectoris chronic Chronic obstructive pulmonary disease chronic Cigarette nicotine dependence chronic Atherosclerosis of coronary artery of [place] heart without angina pectoris chronic Essential (primary) hypertension chronic Hyperlipidemia [facility] Work Phone: evaluation note* Diagnosis Onset Date Resolution Status Atherosclerosis of coronary artery of [place] heart without angina pectoris chronic Essential (primary) hypertension chronic Hyperlipidemia [facility] Work Phone: evaluation note* Diagnosis Onset Date Resolution Status Lung nodule, solitary acute Chronic obstructive pulmonary disease chronic Smoking greater than 30 pack years chronic CKD (chronic kidney disease) stage 4, GFR 15-29 ml/min chronic DM type 1 (diabetes mellitus, type 1) [facility] Work Phone: evaluation note* Diagnosis Onset Date Resolution Status CKD (chronic kidney disease) stage 4, GFR 15-29 ml/min chronic DM type 1 (diabetes mellitus, type 1) [facility] Work Phone: evaluation note* Diagnosis Onset Date Resolution Status CKD (chronic kidney disease) stage 4, GFR 15-29 ml/min chronic DM type 1 (diabetes mellitus, type 1) chronic Lung nodule, solitary acute Chronic obstructive pulmonary disease chronic Respiratory failure with hypoxia [facility] Work Phone: Evaluation note* Diagnosis Onset Date Resolution Status Lung nodule, solitary acute Chronic obstructive pulmonary disease chronic Respiratory failure with hypoxia chronic Atherosclerosis of coronary artery of [place] heart without angina pectoris chronic Essential (primary) hypertension chronic Hyperlipidemia [facility] Work Phone: evaluation note* Diagnosis Onset Date Resolution Status Lung nodule, solitary acute Chronic obstructive pulmonary disease chronic Respiratory failure with hypoxia chronic Atherosclerosis of coronary artery of [place] heart without angina pectoris chronic Essential (primary) hypertension chronic Hyperlipidemia chronic Body mass index (BMI) less than 16.5 chronic CKD (chronic kidney disease) stage 4, GFR 15-29 ml/min chronic DM type 1 (diabetes mellitus, type 1) chronic Nicotine abuse chronic Polyneuropathy due to type 1 diabetes mellitus [facility] Work Phone: Evaluation note* Diagnosis Onset Date Resolution Status Lung nodule, solitary acute Chronic obstructive pulmonary disease chronic Respiratory failure with hypoxia chronic Atherosclerosis of coronary artery of [place] heart without angina pectoris chronic Essential (primary) hypertension chronic Hyperlipidemia chronic Body mass index (BMI) less than 16.5 chronic CKD (chronic kidney disease) stage 4, GFR 15-29 ml/min chronic DM type 1 (diabetes mellitus, type 1) chronic Nicotine abuse chronic 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 Lung nodule, multiple acute Chronic obstructive pulmonary disease chronic CKD (chronic kidney disease) stage 4, GFR 15-29 ml/min chronic Nicotine abuse chronic Respiratory failure with hypoxia [facility] Work Phone: Evaluation note* Diagnosis Onset Date Resolution Status Atherosclerosis of coronary artery of [place] heart without angina pectoris chronic Essential (primary) hypertension chronic Hyperlipidemia chronic Body mass index (BMI) less than 16.5 chronic CKD (chronic kidney disease) stage 4, GFR 15-29 ml/min chronic DM type 1 (diabetes mellitus, type 1) chronic Nicotine abuse chronic 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 Lung nodule, multiple acute Chronic obstructive pulmonary disease chronic CKD (chronic kidney disease) stage 4, GFR 15-29 ml/min chronic Nicotine abuse chronic Respiratory failure with hypoxia [facility] Work Phone: Evaluation note* Diagnosis SDH (subdural hematoma) (HCC)- Primary Subdural hemorrhage SDH (subdural hematoma) (HCC) Subdural hemorrhage Stage 4 chronic kidney disease (HCC) COPD (chronic obstructive pulmonary disease) (HCC) Chronic airway obstruction, not elsewhere classified Type 1 diabetes mellitus with kidney complication (HCC) Hyperlipidemia Other and unspecified hyperlipidemia Diabetic neuropathy associated with type 1 diabetes mellitus (HCC) [facility]H (subdural hematoma) (HCC) Subdural hemorrhage [facility] Diagnosis Hypercapnic respiratory failure (HCC)- Primary Hypercapnic respiratory failure (HCC) Chronic obstructive pulmonary disease, unspecified COPD type (HCC) [facility] Diagnosis Chronic respiratory failure with hypoxia and hypercapnia (HCC) [J96.11, J96.12]- Primary Centrilobular emphysema (HCC) [J43.2] Bilateral pleural effusion [J90] Unspecified pleural effusion Hx of bacterial pneumonia [Z87.01] Cigarette nicotine dependence without complication [F17.210] [facility] Diagnosis Chronic respiratory failure with hypoxia and hypercapnia (HCC) [J96.11, J96.12]- Primary Centrilobular emphysema (HCC) [J43.2] History of recent pneumonia [Z87.01] Other dysphagia [R13.19] Other dysphagia [facility] Diagnosis Chronic respiratory failure with hypoxia and hypercapnia (HCC) [J96.11, J96.12]- Primary Centrilobular emphysema (HCC) [J43.2] Other dysphagia [R13.19] Other dysphagia Hx of bacterial pneumonia [Z87.01] [facility] Diagnosis SDH (subdural hematoma) (HCC)- Primary Subdural hemorrhage SDH (subdural hematoma) (HCC) Subdural hemorrhage [facility] * Reason For Visit: Pre-Transplant. * Functional Status: * Karnofsky Performance Status Scale Definitions Rating (%) Criteria Unable to work; able to live at home and care for most personal needs; varying amount of assistance needed, 70 - Cares for self; unable to carry on normal activity or do active work. * CKD: stage 5. * TIEDI: diabetes yes onset (22 years ago), history of vascular disease, coronary artery disease and potential living donors. Preemptive (Not on Dialysis) * Urine Status: normal. * Compliance/Tolerance/Control: good compliance with treatment. * Primary Care Provider: Dr. Bird Lujan. * Referral: Dr. Christy Huerta (tel: [phone] fax: [phone]). * I am seeing SANDY DENG at the referring provider's request for surgical suitability for renaltransplant candidate listing at [facility]. * History of Present Illness Comments: Ms. SANDY DENG is a 61 year old white female with end stage renal disease which was diagnosed in 2015 during a hysterectomy when she was found to have abnormal kidney function. She was diagnosed with type 1 diabetes mellitus 22 years ago. She has a historyof a myocardial infarction which led to 2 PCI placements after syncope which led to a catheter in 2018. * She was diagnosed with COPD in 2018 and has a history of shortness of breath. She has a history of smoking 1 pack per day. She had exacerbation of symptoms in outpatient with shortness of breath and cough, and she is on oxygen as needed. * Dialysis Status: * She is pre-dialysis. * Her urine status is normal without diuretics. * She takes aspirin and Clopidrogel for anticoagulation. * Transplant Purposes: * Previous organ or islet transplant: No * Recent blood transfusions: No * Previous abdominal surgeries: hysterectomy and appendectomy * Diabetes history: 22 years * Peripheral artery disease: CAD * Previous history of cancer: No * Diabetes Information: * Dr. Viraj No is her Dish Up Person. * Insulin use for 22 years * Amount of Insulin: off pump. Humalog. Basaglar * Significant hypoglycemic events: yes, about 5 times per year * Neuropathy: yes * Retinopathy: yes * Legal blindness: no * Renal failure: yes * Vascular disease: yes * Amputation: no * DKA or hyperosmolar coma: no * Cardiac History: * Atrial fibrillation: no * Pacemaker: no * AICD: no * Coronary artery stenting: yes, 2 stents placed for history of myocardial infarction * CABG: no * She was not seen by a Director Graphics. * Psych History: * No history * Psychosocial: * Smoking: yes, takes Bupropion. She is cutting back and now smokes 3 cigarettes per day. She has a 50 pack/year history. * Marijuana/Illicits: No * Alcohol: no * Financial: * She is retired. 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 * She has Active Health Insurance Coverage: PERS * She has access to emerging technologies to do virtual visits. * Frailty Screen: * Feeling fatigued: no * Ambulation: cannot walk a city block due to shortness of breath. * Stair climbing: cannot climb a flight of stairs due to shortness of breath. * Weight loss: no * Multiple medical comorbidities: has more than 5. * Frailty assessment: she is frail * Karnofsky score: 70% * Support System: * , aunt, sister, son-in-law, all with transportation. * Environment: * She does not have a fall risk and she lives in a safe and stable environment. * Beliefs: * She will accept blood products if needed. * She has potential living donors. * She is vaccinated against COVID-19 but not boosted. [employer] [address] Work Phone: Chief Complaint and Reason for Visit Chief Complaint 4 M FU INT LABS Reason for Visit CKD (chronic kidney disease) stage 4, GFR 15-29 ml/min Diabetes Essential (primary) hypertension Tobacco abuse Chief Complaint 4 M FU INT LABS ABDOMINAL BRUISING 3 M FU Reason for Visit CKD (chronic kidney disease) stage 4, GFR 15-29 ml/min Diabetes Essential (primary) hypertension Tobacco abuse Chronic obstructive pulmonary disease Smoking greater than 30 pack years Chief Complaint 3 M FU NICOTINE DEP 6 M FU COPD COPD COPD Reason for Visit Chronic obstructive pulmonary disease Respiratory failure with hypoxia Smoking greater than 30 pack years Fissure in skin of foot CKD (chronic kidney disease) stage 4, GFR 15-29 ml/min DM type 1 (diabetes mellitus, type 1) Tobacco abuse Chief Complaint 6 M FU COPD COPD COPD COPD 3 M FU LABS AND XRAY Reason for Visit Fissure in skin of f oot CKD (chronic kidney disease) stage 4, GFR 15-29 ml/min DM type 1 (diabetes mellitus, type 1) Tobacco abuse Chronic obstructive pulmonary disease Smoking greater than 30 pack years Chief Complaint 6 M FU 3 M FU CP CP Amb Documentation Reason for Visit CKD (chronic kidney disease) stage 4, GFR 15-29 ml/min DM type 1 (diabetes mellitus, type 1) Hyperlipidemia Polyneuropathy due to type 1 diabetes mellitus Atherosclerosis of coronary artery of [place] heart without angina pectoris Chronic obstructive pulmonary disease Cigarette nicotine dependence Chief Complaint 3 M FU CP CP Amb Documentation Amb Documentation OVERDUE FOR OV (2020) COPD COPD Reason for Visit Atherosclerosis of c oronary artery of [place] heart without angina pectoris Chronic obstructive pulmonary disease Cigarette nicotine dependence Atherosclerosis of coronary artery of [place] heart without angina pectoris Essential (primary) hypertension Hyperlipidemia Chief Complaint 3 M FU CP CP Amb Documentation Amb Documentation OVERDUE FOR OV (2020) COPD COPD SMOKER Reason for Visit Atherosclerosis of c oronary artery of [place] heart without angina pectoris Chronic obstructive pulmonary disease Cigarette nicotine dependence Atherosclerosis of coronary artery of [place] heart without angina pectoris Essential (primary) hypertension Hyperlipidemia Chief Complaint CP CP Amb Documentation Amb Documentation OVERDUE FOR OV (2020) COPD COPD SMOKER COPD COPD Reason for Visit Atherosclerosis of c oronary artery of [place] heart without angina pectoris Essential (primary) hypertension Hyperlipidemia Chief Complaint COPD COPD 4 M FU 6 M FU, RS 07/13 FLOR NODULE Reason for Visit Lung nodule, solitar y Chronic obstructive pulmonary disease Smoking greater than 30 pack years CKD (chronic kidney disease) stage 4, GFR 15-29 ml/min DM type 1 (diabetes mellitus, type 1) Chief Complaint 4 M FU 6 M FU, RS 07/13 FLOR NODULE Reason for Visit Lung nodule, solitar y Chronic obstructive pulmonary disease Smoking greater than 30 pack years CKD (chronic kidney disease) stage 4, GFR 15-29 ml/min DM type 1 (diabetes mellitus, type 1) Chief Complaint 6 M FU, RS 07/13 FLOR NODULE FLANK PAIN, ABD PAIN Reason for Visit CKD (chronic kidney disease) stage 4, GFR 15-29 ml/min DM type 1 (diabetes mellitus, type 1) Chief Complaint 6 M FU, RS 07/13 FLOR NODULE FLANK PAIN, ABD PAIN 3 M FU Reason for Visit CKD (chronic kidney disease) stage 4, GFR 15-29 ml/min DM type 1 (diabetes mellitus, type 1) Lung nodule, solitary Chronic obstructive pulmonary disease Respiratory failure with hypoxia Chief Complaint FLOR NODULE FLANK PAIN, ABD PAIN 3 M FU 6 M FU Reason for Visit Lung nodule, solitar y Chronic obstructive pulmonary disease Respiratory failure with hypoxia Atherosclerosis of coronary artery of [place] heart without angina pectoris Essential (primary) hypertension Hyperlipidemia Chief Complaint FLANK PAIN, ABD PAIN 3 M FU 6 M FU 3 M FU RENAL,PTH, CBC Reason for Visit Lung nodule, solitar y Chronic obstructive pulmonary disease Respiratory failure with hypoxia Atherosclerosis of coronary artery of [place] heart without angina pectoris Essential (primary) hypertension Hyperlipidemia Body mass index (BMI) less than 16.5 CKD (chronic kidney disease) stage 4, GFR 15-29 ml/min DM type 1 (diabetes mellitus, type 1) Nicotine abuse Polyneuropathy due to type 1 diabetes mellitus Chief Complaint FLANK PAIN, ABD PAIN 3 M FU 6 M FU 3 M FU RENAL,PTH, CBC LUNG NODULE Test results Reason for Visit Lung nodule, solitar y Chronic obstructive pulmonary disease Respiratory failure with hypoxia Atherosclerosis of coronary artery of [place] heart without angina pectoris Essential (primary) hypertension Hyperlipidemia Body mass index (BMI) less than 16.5 CKD (chronic kidney disease) stage 4, GFR 15-29 ml/min DM type 1 (diabetes mellitus, type 1) Nicotine abuse Polyneuropathy due to type 1 diabetes mellitus Lung nodule, multiple Chronic obstructive pulmonary disease CKD (chronic kidney disease) stage 4, GFR 15-29 ml/min Nicotine abuse Respiratory failure with hypoxia Chief Complaint 6 M FU 3 M FU RENAL,PTH, CBC LUNG NODULE Test results PERIPHERAL VASCULAR DISEASE Reason for Visit Atherosclerosis of c oronary artery of [place] heart without angina pectoris Essential (primary) hypertension Hyperlipidemia Body mass index (BMI) less than 16.5 CKD (chronic kidney disease) stage 4, GFR 15-29 ml/min DM type 1 (diabetes mellitus, type 1) Nicotine abuse Polyneuropathy due to type 1 diabetes mellitus Lung nodule, multiple Chronic obstructive pulmonary disease CKD (chronic kidney disease) stage 4, GFR 15-29 ml/min Nicotine abuse Respiratory failure with hypoxia Chief Complaint Admit Date 6 M FU, RS 09/16October 07, 2024 1 :39pm R91.8 Other nonspecific abnormal finding of lung f October 16, 2024 7:50am End stage renal disease, BILAT UPPER EXT MAPPING November 02, 2024 9:45am 6 M FU November 04, 2024 3: 09pm HYPERTENSION November 04, 2024 4: 05pm htn November 20, 2024 6 :43pm Consult for Dialysis Access November 2:26pm 6 M FU December 16, 2024 1:50pm PRE-OP December 17, 2024 1:45pm right arm Arteriovenous Fistula,Creation December 28, 2024 9:52am right arm Arteriovenous Fistula,Creation December 28, 2024 11:33am sob January 03, 2025 11:3 3pm PNEUMONIA, HYPERKALEMIA January 03, 2025 11:39pm PNEUMONIA, HYPERKALEMIA January 04, 2025 10:12am PNEUMONIA, HYPERKALEMIA January 05, 2025 12:16pm PNEUMONIA, HYPERKALEMIA January 05, 2025 5:03pm PNEUMONIA, HYPERKALEMIA January 06, 2025 11:29am MULTIPLE LUNG NODULES January 11, 2025 1 2:53pm Post Fistula Creation FU Stitch January 112024 2:55pm Reason for Visit Admit Date DM type 1 (diabetes mellitus, type 1) Smith 2023 1:39pm Hypertension October 07, 2024 1 :39pm Insulin pump titration October 07 1:39pm Osteoporosis October 07, 2024 1 :39pm Presence of insulin pump October 07, 2 024 1:39pm Underweight October 07, 2024 1 :39pm Hypercarbia November 04, 2024 3: 09pm Lung nodule, multiple November 04, 2024 3:09pm Chronic hypoxic respiratory failure Carlos Alberto chelsea 2024 3:09pm Chronic obstructive pulmonary disease Jeremias dobbs 2024 3:09pm ESRD on hemodialysis November 04, 2024 3 :09pm Hypertension November 04, 2024 3: 09pm ESRD (end stage renal disease) on dialys is December 02, 2024 2:26pm Atherosclerosis of coronary artery of [place] heart without angina pectoris December 16, 2024 1:50pm ESRD (end stage renal disease) on dialys is December 16, 2024 1:50pm Essential (primary) hypertension y 2024 1:50pm Hyperlipidemia December 16, 2024 1:50pm Acute respiratory failure with hypoxia a nd hypercarbia January 03, 2025 11:39pm Anemia January 03, 2025 11:3 9pm End-stage renal disease on hemodialysis January 03, 2025 11:39pm Left lower lobe pneumonia January 03 11:39pm Parapneumonic effusion January 03, 2025 1 1:39pm Pleural effusion on left January 03, 2025 11:39pm COPD exacerbation January 03, 2025 11:3 9pm DM type 1 (diabetes mellitus, type 1) [facility] 2024 11:39pm Hypertension January 03, 2025 11:3 9pm Acute hyperkalemia January 03, 2025 11:3 9pm Chronic hypoxemic respiratory failure [facility] 2024 11:39pm AV fistula January 11, 2025 2:5 5pm Chief Complaint Admit Date Consult for Dialysis Access November 2:26pm 6 M FU December 16, 2024 1:50pm PRE-OP December 17, 2024 1:45pm right arm Arteriovenous Fistula,Creation December 28, 2024 9:52am right arm Arteriovenous Fistula,Creation December 28, 2024 11:33am sob January 03, 2025 11:3 3pm PNEUMONIA, HYPERKALEMIA January 03, 2025 11:39pm PNEUMONIA, HYPERKALEMIA January 04, 2025 10:12am PNEUMONIA, HYPERKALEMIA January 05, 2025 12:16pm PNEUMONIA, HYPERKALEMIA January 05, 2025 5:03pm PNEUMONIA, HYPERKALEMIA January 06, 2025 11:29am MULTIPLE LUNG NODULES January 11, 2025 1 2:53pm Post Fistula Creation FU Stitch January 112024 2:55pm 3 M FU, RS 01/06January 27, 2025 8:4 0am 10 WK FU March 22, 2025 12:59 pm Reason for Visit Admit Date ESRD (end stage renal disease) on dialys is December 02, 2024 2:26pm Atherosclerosis of coronary artery of [place] heart without angina pectoris December 16, 2024 1:50pm ESRD (end stage renal disease) on dialys is December 16, 2024 1:50pm Essential (primary) hypertension 2024 1:50pm Hyperlipidemia December 16, 2024 1:50pm Acute respiratory failure with hypoxia a nd hypercarbia January 03, 2025 11:39pm Anemia January 03, 2025 11:3 9pm End-stage renal disease on hemodialysis January 03, 2025 11:39pm Left lower lobe pneumonia January 03 11:39pm Parapneumonic effusion January 03, 2025 1 1:39pm Pleural effusion on left January 03, 2025 11:39pm COPD exacerbation January 03, 2025 11:3 9pm DM type 1 (diabetes mellitus, type 1) [facility] 2024 11:39pm Hypertension January 03, 2025 11:3 9pm Acute hyperkalemia January 03, 2025 11:3 9pm Chronic hypoxemic respiratory failure [facility] 2024 11:39pm AV fistula January 11, 2025 2:5 5pm DM type 1 (diabetes mellitus, type 1) [facility] 2024 8:40am High cholesterol January 27, 2025 8:4 0am Hypertension January 27, 2025 8:4 0am Insulin pump titration January 27, 2025 8:40am Osteoporosis January 27, 2025 8:4 0am Presence of insulin pump January 27 8:40am Vitamin D deficiency January 27, 2025 8: 40am Family History No Family History Records Found Relationship Condition Age at Onset Recorded Date/T amina mother Cardiac disease Unknown Chronic obstructive pulmonary disease Unk nown Lupus erythematosus Unknown daughter Growth disorder Unknown Down syndrome Unknown Fibromyalgia Unknown grandfather Malignant neoplasm of colon Unknown Diabetes mellitus Unknown grandmother Cardiac disease Unknown Cerebrovascular accident (CVA) Unknown Disorder of lung Unknown sister Hypertension Unknown Kidney disorder Unknown Advance Directives No Advanced Directives Records Found Advance Directive Response Recorded Date/ Time Advance Directives No February 04 8:01am Living Will No August 26 8:15pm Power of Fuel Retrofitting Technician No August 26, 2020 8:15pm Advance Directive Response Recorded Date/ Time Advance Directives No February 04 7:01am Living Will No August 26 7:15pm Power of Fuel Retrofitting Technician No August 26, 2020 7:15pm Date Activated Date Inactivated Comments 07/26/2024 5:12 PM 08/10/2024 4:45 PM Date Activated Date Inactivated Comments 08/12/2024 6:08 PM 08/24/2024 8:30 PM Date Activated Date Inactivated Comments 07/26/2024 5:12 PM 08/10/2024 4:45 PM Date Activated Date Inactivated Comments 08/12/2024 6:08 PM 08/24/2024 8:30 PM Date Activated Date Inactivated Comments 07/26/2024 5:12 PM 08/10/2024 4:45 PM Advance Directive Response Recorded Date/ Time Living Will No August 26 8:15pm Do you have a Healthcare Power of Fuel Retrofitting Technician? No August 26, 2020 8:15pm Living Will No April 14, 2024 10:45pm Do you have a Healthcare Power of Fuel Retrofitting Technician? No April 14, 2024 10:45pm Advance Directives No January 10 025 9:10am Living Will No July 24, 2024 12:39am Do you have a Healthcare Power of Fuel Retrofitting Technician? No July 24, 2024 12:39am Living Will No November 20 8:06pm Do you have a Healthcare Power of Fuel Retrofitting Technician? No November 20, 2024 8:06pm Living Will No December 14 025 2:25pm Do you have a Healthcare Power of Fuel Retrofitting Technician? No December 14, 2024 2:25pm Living Will No January 04, 2025 1:39am Do you have a Healthcare Power of Fuel Retrofitting Technician? No January 04, 2025 1:39am Advance Directive Response Recorded Date/ Time Living Will No April 14, 2024 10:45pm Do you have a Healthcare Power of Fuel Retrofitting Technician? No April 14, 2024 10:45pm Advance Directives No January 10 025 9:10am Living Will No December 14 2:25pm Do you have a Healthcare Power of Fuel Retrofitting Technician? No December 14, 2024 2:25pm Living Will No January 04, 2025 1:39am Do you have a Healthcare Power of Fuel Retrofitting Technician? No January 04, 2025 1:39am Summary Purpose Reason for Referral Specialty Diagnoses / Procedures Referred By Contac t Referred To Contact Radiology Diagnoses SDH (subdural hematoma) (HCC) Procedures CT head wo IV contrast Madeline Montalvo, DIGITAL DESIGN ENGINEER - SUPERVISOR WHIPPED TOPPING [address] [place] [address] Referral ID Status Reason Start Date Expiration Date V isits Requested Visits Authorized [id number] Authorized 07/27/2024 07/27/2025 1 1 Specialty Diagnoses / Procedures Referred By Contac t Referred To Contact Radiology Diagnoses SDH (subdural hematoma) (HCC) Procedures CT head wo IV contrast Elieser Solis MD [address] [place] [address] Referral ID Status Reason Start Date Expiration Date Visits Re quested Visits Authorized [id number] Closed 07/27/2024 09/10/2024 1 1 Additional Source Comments Goals (unrecognized section and content) Goals may be documented in a n alternate sectionGoals may be documented in an alternate sectionGoals may be documented in an alternate sectionGoals may be documented in an alternate sectionGoals may be documented in an alternate sectionGoals may be documented in an alternate sectionGoals may be documented in an alternate sectionGoals may be documented in an alternate sectionGoals may be documented in an alternate sectionGoals may be documented in an alternate sectionGoals may be documented in an alternate sectionGoals may be documented in an alternate sectionGoals may be documented in an alternate sectionGoals may be documented in an alternate sectionGoals may be documented in an alternate sectionGoals may be documented in an alternate sectionGoals may be documented in an alternate sectionGoals may be documented in an alternate sectionGoals may be documented in an alternate section INFORMATION SOURCE (unrecogn ized section and content) DATE CREATED AUTHOR 06/02/2022 [employer] DATE CREATED AUTHOR AUTHOR'S ORGANIZ ATION 06/03/2022 [facility] DATE CREATED AUTHOR AUTHOR'S ORGANIZ ATION 12/18/2024 [facility] DATE CREATED AUTHOR AUTHOR'S ORGANIZ ATION 12/31/2024 [facility] DATE CREATED AUTHOR AUTHOR'S ORGANIZ ATION 03/31/2025 [facility] Care Teams (unrecognized sec tion and content) Team Status: Active Member Role Status Dates Dr. Sin Lujan MD Family Provider Active Dr. Sin Lujan MD Primary Care Provider Activ e Team Status: Inactive Member Role Status Dates Dr. Sin Lujan MD Primary Care Provider, Refe rring Provider Active Brenda Medrano NP-C Attending Provider Active Team Status: Inactive Member Role Status Dates Dr. Sin Lujan MD Primary Care Provider, Refe rring Provider Active Jeanna Davis NP, STEELSCOPE OPERATOR-C Attending Provider Active Team Status: Active Member Role Status Dates Dr. Sin Lujan MD Primary Care Provider Activ e Radha Sandhu PA, PA Referring Provider, Other Provider Active Dr. Salomon Robbins MD Attending Provider Active Team Status: Active Member Role Status Dates Dr. Sin Lujan MD Primary Care Provider Activ e Radha Aranda Attending Provider Active Team Status: Active Member Role Status Dates Dr. Sin Lujan MD Primary Care Provider Activ e Radha Sandhu PA, PA Attending Provider, Referr ing Provider Active Team Status: Inactive Member Role Status Dates Dr. Sin Lujan MD Primary Care Provider Activ e Dr. Christy Huerta DO Attending Provider, Referring P adolfo Active Team Status: Inactive Member Role Status Dates Dr. Sin Lujan MD Primary Care Provider Activ e Radha Sandhu PA, PA Attending Provider, Referr ing Provider Active Team Status: Inactive Member Role Status Dates Dr. Sin Lujan MD Primary Care Provider, Refe rring Provider Active Radha Sandhu PA, PA Attending Provider Active Team Status: Active Member Role Status Dates Dr. Sin Lujan MD Primary Care Provider Activ e Heidi Russell Attending Provider Active Team Status: Active Member Role Status Dates Jeanna Davis STEELSCOPE OPERATOR, STEELSCOPE OPERATOR-C Referring Provider, Other Pr ovider Active Dr. Sin Lujan MD Primary Care Provider Activ e Dr. Rios Cordova MD Attending Provider Active Team Status: Inactive Member Role Status Dates Jeanna Davis STEELSCOPE OPERATOR, STEELSCOPE OPERATOR-C Attending Provider, Referrin g Provider Active Dr. Sin Lujan MD Primary Care Provider Activ e Team Status: Inactive Member Role Status Dates Dr. Sin Lujan MD Primary Care Provider Activ e Dr. Christy Huerta DO Attending Provider Active Team Status: Active Member Role Status Dates Jeanna Davis STEELSCOPE OPERATOR, STEELSCOPE OPERATOR-C Referring Provider, Other Pr ovider Active Dr. Sin Lujan MD Primary Care Provider Activ e Dr. Terrance Alva DO Attending Provider Active Team Status: Inactive Member Role Status Dates Dr. Sin Lujan MD Primary Care Provider, Refe rring Provider Active Dr. Rios Cordova MD Attending Provider Active Team Status: Inactive Member Role Status Dates Dr. Sin Lujan MD Primary Care Provider Activ e Dr. Rios Cordova MD Attending Provider, Referring Pr ovider Active Team Status: Active Member Role Status Dates Dr. Sin Lujan MD Primary Care Provider Activ e Dr. Christy Huerta DO Attending Provider Active Team Status: Inactive Member Role Status Dates Dr. Sin Lujan MD Primary Care Provider Activ e Jeanna Davis STEELSCOPE OPERATOR, STEELSCOPE OPERATOR-C Attending Provider Active Team Status: Inactive Member Role Status Dates Dr. Sin Lujan MD Primary Care Provider, Refe rring Provider Active Kena Sandy STEELSCOPE OPERATOR, STEELSCOPE OPERATOR-C Attending Provider Active Team Status: Inactive Member Role Status Dates Dr. Sin Lujan MD Primary Care Provider Activ e Jeanna Davis STEELSCOPE OPERATOR, STEELSCOPE OPERATOR-C Attending Provider, Referrin g Provider Active Team Status: Active Member Role Status Dates Dr. Bird Lujan MD Family Provider Active Dr. Bird Lujan MD Primary Care Provider Acti ve Team Status: Inactive Member Role Status Dates Dr. Bird Lujan MD Primary Care Provider, Ref erring Provider Active Kena Sandy STEELSCOPE OPERATOR, STEELSCOPE OPERATOR-C Attending Provider Active Team Status: Inactive Member Role Status Dates Dr. Bird Lujan MD Primary Care Provider, Ref erring Provider Active Brenda Medrano STEELSCOPE OPERATOR-C Attending Provider Active Team Status: Inactive Member Role Status Dates Dr. Bird Lujan MD Primary Care Provider, Ref erring Provider Active Jeanna Davis STEELSCOPE OPERATOR, STEELSCOPE OPERATOR-C Attending Provider Active Team Status: Inactive Member Role Status Dates Dr. Bird Lujan MD Primary Care Provider Acti ve Dr. Christy Huerta DO Attending Provider Active Team Status: Inactive Member Role Status Dates Dr. Bird Lujan MD Primary Care Provider Acti ve Jeanna Davis STEELSCOPE OPERATOR, STEELSCOPE OPERATOR-C Attending Provider, Referrin g Provider Active Team Status: Inactive Member Role Status Dates Dr. Bird Lujan MD Primary Care Provider Acti ve Dr. Sherice Skelton , DPM Attending Provider, Referring Pr ovider Active Senior Consulting Manager Relationship Specialty Start Date End Date Bird Lujan [address] [place] [address] PCP - General Family Medicine 07/26/24 Senior Consulting Manager Relationship Specialty Start Date End Date Bird Lujan [address] [place] [address] PCP - General Family Medicine 07/26/24 Param Sousa, RN Registered Nurse Hospital Medicine Director Manager 08/11/24 Senior Consulting Manager Relationship Specialty Start Date End Date Bird Lujan [address] [place] [address] PCP - General Family Medicine 07/26/24 Param Sousa, RN Registered Nurse Hospital Medicine Director Manager 08/11/2409/26 Senior Consulting Manager Relationship Specialty Start Date End Date Bird Lujan [address] [place] [address] PCP - General Family Medicine 07/26/24 Senior Consulting Manager Relationship Specialty Start Date End Date Bird Lujan [address] [facility] [address] [place] [id number] PCP - General Family Medicine 07/26/24 Senior Consulting Manager Relationship Specialty Start Date End Date Bird Lujan [address] [facility] [address] [place] [address] PCP - General Family Medicine 07/26/24 Param Sousa RN Registered Nurse Hospital Medicine Director Manager 08/11/2409/26 Senior Consulting Manager Relationship Specialty Start Date End Date Bird Lujan MD [address] [facility] [place], [place] [address] PCP - General 10/17/08 Team Status: Active Member Role Status Dates Dr. Bird Lujan MD Primary Care Provider Acti ve Team Status: Inactive Member Role Status Dates Dr. Bird Lujan MD Primary Care Provider Acti ve Start: October 07, 2024 End: October 07, 2024 Dr. Bird Lujan MD Referring Provider Active Start: October 07, 2024 End: October 07, 2024 Brenda Medrano NP-C Attending Provider Active Start: October 07, 2024 End: October 07, 2024 Team Status: Inactive Member Role Status Dates Dr. Bird Lujan MD Primary Care Provider Acti ve Start: October 16, 2024 End: October 16, 2024 Jeanna Davis NP, STEELSCOPE OPERATOR-C Attending Provider Active Start: October 16, 2024 End: October 16, 2024 Jeanna Davis NP, STEELSCOPE OPERATOR-C Referring Provider Active Start: October 16, 2024 End: October 16, 2024 Team Status: Inactive Member Role Status Dates Dr. Bird Lujan MD Primary Care Provider Acti ve Start: November 02, 2024 End: November 02, 2024 Dr. Christy Huerta DO Attending Provider Active Start: November 02, 2024 End: November 02, 2024 Dr. Christy Huerta DO Referring Provider Active Start: November 02, 2024 End: November 02, 2024 Team Status: Active Member Role Status Dates Dr. Bird Lujan MD Primary Care Provider Acti ve Start: November 02, 2024 Dr. Favian Sinclair MD Attending Provider Active S tart: November 02, 2024 Team Status: Inactive Member Role Status Dates Dr. Bird Lujan MD Primary Care Provider Acti ve Start: November 04, 2024 End: November 04, 2024 Dr. Bird Lujan MD Referring Provider Active Start: November 04, 2024 End: November 04, 2024 Jeanna Davis STEELSCOPE OPERATOR, STEELSCOPE OPERATOR-C Attending Provider Active Start: November 04, 2024 End: November 04, 2024 Team Status: Inactive Member Role Status Dates Dr. Bird Lujan MD Primary Care Provider Acti ve Start: November 04, 2024 End: November 04, 2024 Ed Physician Provider Attending Provider Active Start: November 04, 2024 End: November 04, 2024 Ed Physician Provider Emergency Provider Active Start: November 04, 2024 End: November 04, 2024 Team Status: Inactive Member Role Status Dates Dr. Bird Lujan MD Primary Care Provider Acti ve Start: November 20, 2024 End: November 20, 2024 Dr. Justin Parisi DO Attending Provider Activ e Start: November 20, 2024 End: November 20, 2024 Dr. Justin Parisi DO Emergency Provider Activ e Start: November 20, 2024 End: November 20, 2024 Team Status: Inactive Member Role Status Dates Dr. Favian Sinclair MD Attending Provider Active S tart: December 02, 2024 End: December 02, 2024 Dr. Christy Huerta DO Referring Provider Active Start: December 02, 2024 End: December 02, 2024 Team Status: Inactive Member Role Status Dates Dr. Bird Lujan MD Primary Care Provider Acti ve Start: December 16, 2024 End: December 16, 2024 Dr. Bird Lujan MD Referring Provider Active Start: December 16, 2024 End: December 16, 2024 Mynor Anthony NP, STEELSCOPE OPERATOR-C Attending Provider Active S tart: December 16, 2024 End: December 16, 2024 Team Status: Inactive Member Role Status Dates BENTON Bucio Attending Provider Active Star t: December 17, 2024 End: December 17, 2024 BENTON Bucio Referring Provider Active Star t: December 17, 2024 End: December 17, 2024 Dr. Bird Lujan MD Primary Care Provider Acti ve Start: December 17, 2024 End: December 17, 2024 Team Status: Active Member Role Status Dates Dr. Bird Lujan MD Primary Care Provider Acti ve Start: December 17, 2024 Dr. Tee Aguirre MD Attending Provider Activ e Start: December 17, 2024 Team Status: Inactive Member Role Status Dates Dr. Favian Sinclair MD Attending Provider Active S tart: December 28, 2024 End: December 28, 2024 Dr. Favian Sinclair MD Referring Provider Active S tart: December 28, 2024 End: December 28, 2024 Dr. Bird Lujan MD Primary Care Provider Acti ve Start: December 28, 2024 End: December 28, 2024 Team Status: Active Member Role Status Dates Dr. Favian Sinclair MD Attending Provider Active S tart: December 28, 2024 Dr. Favian Sinclair MD Referring Provider Active S tart: December 28, 2024 Dr. Favian Sinclair MD Other Provider Active Start : December 28, 2024 Dr. Bird Lujan MD Primary Care Provider Acti ve Start: December 28, 2024 Team Status: Active Member Role Status Dates Dr. Bird Lujan MD Primary Care Provider Acti ve Start: January 03, 2025 Dr. Milind Heath MD Emergency Provider Active Sta rt: January 03, 2025 Dr. Alex Hinojosa MD Attending Provider Active Start: January 03, 2025 Team Status: Inactive Member Role Status Dates Dr. Bird Lujan MD Primary Care Provider Acti ve Start: January 03, 2025 End: January 06, 2025 Dr. Milind Heath MD Emergency Provider Active Sta rt: January 03, 2025 End: January 06, 2025 Dr. Alex Hinojosa MD Admit Provider Active Star t: January 03, 2025 End: January 06, 2025 Dr. Alex Hinojosa MD Other Provider Active Star t: January 03, 2025 End: January 06, 2025 Dr. Christy Huerta DO Other Provider Active Sta rt: January 03, 2025 End: January 06, 2025 Dr. He Cat MD Attending Provider Active Start: January 03, 2025 End: January 06, 2025 Team Status: Active Member Role Status Dates Dr. Bird Lujan MD Primary Care Provider Acti ve Start: January 04, 2025 Dr. Milind Heath MD Emergency Provider Active Sta rt: January 04, 2025 Dr. Alex Hinojosa MD Admit Provider Active Star t: January 04, 2025 Dr. Alex Hinojosa MD Other Provider Active Star t: January 04, 2025 Dr. Christy Huerta DO Other Provider Active Sta rt: January 04, 2025 Dr. He Cat MD Attending Provider Active Start: January 04, 2025 Dr. He Cat MD Other Provider Active Sta rt: January 04, 2025 Dr. Eladio Valdez MD Other Provider Active Start: January 04, 2025 Dr. Casey Lizarraga MD Other Provider Active Start: January 04, 2025 Dr. Rios Cordova MD Other Provider Active Star t: January 04, 2025 Dr. Terrance Alva DO Other Provider Active Start : January 04, 2025 Dr. Jimmy Almeida MD Other Provider Active Sta rt: January 04, 2025 Dr. Jose Kaye MD Other Provider Active St art: January 04, 2025 Dr. Estrada Kathleen MD Other Provider Active S tart: January 04, 2025 Dr. Bertha Aguilar MD Other Provider Active Start: January 04, 2025 Dr. Gennaro Wilhelm MD Other Provider Active Start : January 04, 2025 Dr. Trino Marcano MD Other Provider Active Start: January 04, 2025 Dr. Kalia Vanegas MD Other Provider Active Start : January 04, 2025 Dr. Chichi Lloyd MD Other Provider Active Star t: January 04, 2025 Dr. Julio Ventura MD Other Provider Active Sta rt: January 04, 2025 Dr. Yue rFanco MD Other Provider Active Sta rt: January 04, 2025 Dr. Ritesh Zayas MD Other Provider Active Star t: January 04, 2025 Dr. Kian Sinclair MD Other Provider Active St art: January 04, 2025 Dr. Felipe Green MD Other Provider Active Star t: January 04, 2025 Dr. Ezio Frias , Other Provider Active St art: January 04, 2025 Dr. Fernanda Deleon MD Other Provider Active Start: January 04, 2025 Dr. Krys Wick MD Other Provider Active St art: January 04, 2025 Dr. John Dash DO Other Provider Active Start: January 04, 2025 Dr. Allan Nuñez MD Other Provider Active Star t: January 04, 2025 Dr. Ihsan Hines MD Other Provider Active Sta rt: January 04, 2025 Team Status: Active Member Role Status Dates Dr. Bird Lujan MD Primary Care Provider Acti ve Start: January 05, 2025 Dr. Milind Heath MD Emergency Provider Active Sta rt: January 05, 2025 Dr. Alex Hinojosa MD Admit Provider Active Star t: January 05, 2025 Dr. Alex Hinojosa MD Other Provider Active Star t: January 05, 2025 Dr. Christy Huerta DO Other Provider Active Sta rt: January 05, 2025 Dr. He Cat MD Referring Provider Active Start: January 05, 2025 Dr. He Cat MD Other Provider Active Sta rt: January 05, 2025 Dr. Terrance Alva DO Attending Provider Active S tart: January 05, 2025 Team Status: Active Member Role Status Dates Dr. Bird Lujan MD Primary Care Provider Acti ve Start: January 05, 2025 Dr. Milind Heath MD Emergency Provider Active Sta rt: January 05, 2025 Dr. Alex Hinojosa MD Admit Provider Active Star t: January 05, 2025 Dr. Alex Hinojosa MD Other Provider Active Star t: January 05, 2025 Dr. Christy Huerta DO Other Provider Active Sta rt: January 05, 2025 Dr. He Cat MD Attending Provider Active Start: January 05, 2025 Dr. He Cat MD Other Provider Active Sta rt: January 05, 2025 Team Status: Active Member Role Status Dates Dr. Bird Lujan MD Primary Care Provider Acti ve Start: January 06, 2025 Dr. Milind Heath MD Emergency Provider Active Sta rt: January 06, 2025 Dr. Alex Hinojosa MD Admit Provider Active Star t: January 06, 2025 Dr. Alex Hinojosa MD Other Provider Active Star t: January 06, 2025 Dr. Christy Huerta DO Other Provider Active Sta rt: January 06, 2025 Dr. He Cat MD Attending Provider Active Start: January 06, 2025 Dr. He Cat MD Other Provider Active Sta rt: January 06, 2025 Team Status: Inactive Member Role Status Dates Dr. Bird Lujan MD Primary Care Provider Acti ve Start: January 11, 2025 End: January 11, 2025 Jeanna Davis NP, STEELSCOPE OPERATOR-C Attending Provider Active Start: January 11, 2025 End: January 11, 2025 Jeanna Davis NP, STEELSCOPE OPERATOR-C Referring Provider Active Start: January 11, 2025 End: January 11, 2025 Team Status: Inactive Member Role Status Dates Dr. Bird Lujan MD Primary Care Provider Acti ve Start: January 11, 2025 End: January 11, 2025 Dr. Bird Lujan MD Referring Provider Active Start: January 11, 2025 End: January 11, 2025 BENTON Bucio Attending Provider Active Star t: January 11, 2025 End: January 11, 2025 Team Status: Inactive Member Role Status Dates Dr. Bird Lujan MD Primary Care Provider Acti ve Start: January 27, 2025 End: January 27, 2025 Dr. Bird Lujan MD Referring Provider Active Start: January 27, 2025 End: January 27, 2025 Brenda Medrano NP-C Attending Provider Active Start: January 27, 2025 End: January 27, 2025 Team Status: Inactive Member Role Status Dates Dr. Bird Lujan MD Primary Care Provider Acti ve Start: March 22, 2025 End: March 22, 2025 Dr. Bird Lujan MD Referring Provider Active Start: March 22, 2025 End: March 22, 2025 BENTON Bucio Attending Provider Active Star t: March 22, 2025 End: March 22, 2025 Reason for Visit (unrecogniz ed section and content) Specialty Diagnoses / Procedures Referred By Contac t Referred To Contact Diagnoses SDH (subdural hematoma) (HCC) brain bleed Procedures [id number] Ino Conte MD [address] [place] [address] Merged With [facility] [address] [place] [address] Referral ID Status Reason Start Date Expiration Date Visits Re quested Visits Authorized [id number] 1 1 Specialty Diagnoses / Procedures Referred By Contac t Referred To Contact Radiology Diagnoses SDH (subdural hematoma) (HCC) Procedures CT head wo IV contrast Elieser Solis MD [address] [place] [address] Referral ID Status Reason Start Date Expiration Date Visits Re quested Visits Authorized [id number] Closed 07/27/2024 09/10/2024 1 1 Reason Comments Altered Mental Status Pt became dizzy th is morning and SpO2 was noted to be 80s on RA. Pt was placed on 35% venti mask. Pt is altered. Awakens to voice and follows simple commands Specialty Diagnoses / Procedures Referred By Contac t Referred To Contact Diagnoses Hypercapnic respiratory failure (HCC) Hypoxia Procedures . Elizabeth Tyler MD [address] [place] [address] Phone: tel: fax: [facility] [place] [address] Phone: tel: Referral ID Status Reason Start Date Expiration Date Visits Re quested Visits Authorized [id number] 1 1 Reason Comments Referral - Kidney Txp Scheduled Active and Recently Administ ered Medications (unrecognized section and content) Medication Order 08/08/2024 08/09/2024 08/10/2024 busPIRone (Buspar) tablet 7.5 mg 7.5 mg, Oral, 2 times daily, First dose on 08/02/24 at 1330 0845 (Given - Provider: Blue Middleton RN)2126 (Given - Provider: Joycelyn Welch RN) 0917 (Given - Provider: Chava Rodriguez)2052 (Given - Provider: Joycelyn Welch RN) 131 (Given - Provider: Jim A Flaker, RN - Comment: at dialysis) calcium gluconate 1000 mg in 100 mL IVPB premix (COMPLETED) 1,000 mg, IntraVENous, Administer over 1 Hours, Once, On 08/08/24 at 0645, For 1 dose, premix bag 0938 (Given - Provider: Blue Middleton RN) fluticasone (Flonase) nasal spray 2 spray 2 spray, Each Nostril, Daily, First dose on 08/07/24 at 1145, Shake gently. Before first use, prime pump (press 6 times until fine spray appears). After use, clean tip and replace cap. 0846 (Given - Provider: Blue Middleton RN) 0919 (Given - Provider: Chava Rodriguez) 0900 (Not Given - Provider: Jim Rodriguez RN - Reason: Patient/family refused) fluticasone (Flonase) nasal spray 2 spray (COMPLETED) 2 spray, Each Nostril, Once, On 08/08/24 at 0115, For 1 dose, Shake gently. Before first use, prime pump (press 6 times until fine spray appears). After use, clean tip and replace cap. 0107 (Given - Provider: Gloria Vides RN) furosemide (Lasix) injection 80 mg (COMPLETED) 80 mg, IntraVENous, Once, On 08/09/24 at 1245, For 1 dose 1302 (Given - Provider: Blue Middleton RN) gabapentin (Neurontin) capsule 200 mg 200 mg, Oral, 2 times daily, First dose on Fri08/04/24 at 0900 0845 (Given - Provider: Blue Middleton RN)2127 (Given - Provider: Joycelyn Welch RN) 0854 (Given - Provider: Blue Middleton RN)205 (Given - Provider: Joycelyn Welch RN) 1319 (Given - Provider: Jim Rodriguez RN - Comment: at dialysis) Glycopyrrolate-Formot aftab (Bevespi Aerosphere) 9-4.8 MCG/ACT inhaler 2 puff 2 puff, Inhalation, 2 times daily, First dose on Fri07/26/24 at 2000 0846 (Given - Provider: Blue Middleton RN)2127 (Given - Provider: Joycelyn Welch RN) 0918 (Given - Provider: Chava Rodriguez)2054 (Given - Provider: Joycelyn Welch RN) 132 (Given - Provider: Jim Rodriguez, MOODY - Comment: at dialysis) heparin injection 5,000 Units 5,000 Units, SubCUTAneous, Every 12 hours scheduled (2 times per day), First dose on Fri07/30/24 at 0900 0845 (Given - Provider: Blue Middleton RN)2126 (Given - Provider: Joycelyn Welch RN) 0917 (Given - Provider: Chava Rodriguez)2051 (Given - Provider: Joycelyn Welch RN) 131 (Given - Provider: Jim Rodriguez RN - Comment: at dialysis) insulin glargine (Lantus) injection 3 Units 3 Units, SubCUTAneous, Nightly, First dose (after last modification) on Fri08/09/24 at 2100, Do not hold without physician order. 2052 (Given - Provider: Joycelyn Welch RN) insulin glargine (Lantus) injection 5 Units (CANCELED) 5 Units, SubCUTAneous, Nightly, First dose (after last modification) on Fri08/06/24 at 2100, Do not hold without physician order. 2125 (Given - Provider: Joycelyn Welch RN) Insulin Lispro (Humalog) injection 0-12 Units(Linked Group 1) 0-12 Units, SubCUTAneous, 3 times daily with meals, First dose on Fri08/06/24 at 1700, Medium Dose Correction Algorithm Glucose: Dose: LESS than 139 No Insulin 140-199 2 Unit 200-249 4 Units 250-299 6 Units 300-349 8 Units 350-400 10 Units Above 400 12 Units 0929 (Given - Provider: Blue Middleton RN)1153 (Given - Provider: Blue Middleton, MOODY)1700 (Given - Provider: Blue Middleton, MOODY) 0800 (Given - Provider: Blue Middleton RN)1302 (Given - Provider: Blue Middleton, MOODY)1756 (Given - Provider: Blue Middleton, MOODY) 0800 (Not Given - Provider: Jim Rodriguez RN - Reason: Order parameters not met)1200 (Not Given - Provider: Jim Rodriguez RN - Reason: Order parameters not met) Insulin Lispro (Humalog) injection 0-12 Units(Linked Group 1) 0-12 Units, SubCUTAneous, Nightly, First dose on Fri08/06/24 at 2100, If continuous tube feedings/TPN/NPO, give correction dose based on result, no reduction in dose. If eating or bolus tube feeding: Medium Dose Correction Algorithm Glucose: Dose: LESS than 139 No Insulin 140-199 2 Unit 200-249 4 Units 250-299 6 Units 300-349 8 Units 350-400 10 Units Above 400 12 Units 2126 (Given - Provider: Joycelyn Welch, RN) 2052 (Given - Provider: Joycelyn Welch RN) ipratropium-albuterol (Duo-Neb) 0.5-2.5 mg/3 mL nebulizer solution 3 mL 3 mL, Nebulization, 3 times daily, First dose (after last modification) on Fri08/07/24 at 1400 0848 (Given - Provider: Sangeeta Rouse RCP)1344 (Given - Provider: Sangeeta Rouse RCP)2030 (Given - Provider: Daina Carvalho, JUDE) 0905 (Given - Provider: Mary Mcintosh, JUDE)1433 (Given - Provider: Mary Mcintosh RRT)2239 (Given - Provider: Marylu Montanez RCP) 0806 (Given - Provider: Eren Mckeno RCP)1200 (Not Given - Provider: Eren Mckeon RCP - Reason: Patient not available - Comment: dialysis) metoprolol tartrate (Lopressor) tablet 50 mg 50 mg, Oral, 2 times daily, First dose on Fri08/02/24 at 1330, On hold since Soni 08/05/2024 at 0248 until manually unheld 0900 (Dose Auto Held - Provider: Ana Rosa Carlin DO)2100 (Dose Auto Held - Provider: Ana Rosa Carlin DO) 0900 (Dose Auto Held - Provider: Ana Rosa Irizarry Carlin DO)2100 (Dose Auto Held - Provider: Ana Rosa Pros DO) 0900 (Dose Auto Held - Provider: Ana Rosa Carlin DO)1640 (Unheld by provider - Provider: Automatic Discharge Provider) mirtazapine (Remeron) tablet 7.5 mg 7.5 mg, Oral, Nightly, First dose (after last modification) on Soni 08/05/24 at 2100 2126 (Given - Provider: Joycelyn Welch RN) 2051 (Given - Provider: Joycelyn Welch RN) nitrofurantoin (macrocrystal-monohyd rate) (Macrobid) capsule 100 mg 100 mg, Oral, 2 times daily, First dose on 08/09/24 at 2100, For 5 days, Suspected Indication (Select all that apply): Urinary Tract Infection 2123 (Given - Provider: Joycelyn Welch RN) 1319 (Given - Provider: Jim Rodriguez RN - Comment: at dialysis) pantoprazole (ProtoNix) 40 mg in sodium chloride (PF) 0.9 % 10 mL injection(Linked Group 2) 40 mg, IntraVENous, Administer over 2 Minutes, Nightly, First dose on Fri08/04/24 at 2100, Give only if unable to tolerate po. 2126 (Given - Provider: Joycelyn Welch RN) 2051 (See Alternative - Provider: Joycelyn Welch RN) pantoprazole (ProtoNix) EC tablet 40 mg(Linked Group 2) 40 mg, Oral, Nightly, First dose on Fri08/04/24 at 2100, Do not crush, chew, or split. 2126 (See Alternative - Provider: Joycelyn Welch RN) 2051 (Given - Provider: Joycelyn Welch RN) potassium phosphates 20 mmol in sodium chloride 0.9 % 250 mL IVPB (COMPLETED) 20 mmol, IntraVENous, at 83.3 mL/hr, Administer over 180 Minutes, Once, On 08/08/24 at 0815, For 1 dose 1153 (New Bag - Provider: Blue Middleton, MOODY)1453 (Stopped - Provider: Blue Middleton RN) predniSONE (Deltasone) tablet 40 mg 40 mg, Oral, Daily, First dose on 08/07/24 at 1145, For 5 days, On hold since 08/07/2024 at 1145 until manually unheld 0900 (Dose Auto Held - Provider: Khai Espana DO) 0900 (Dose Auto Held - Provider: Khai Espana DO) 0900 (Dose Auto Held - Provider: Khai Espana DO)1640 (Unheld by provider - Provider: Automatic Discharge Provider) sodium chloride 0.9% (NS) flush 10 mL 10 mL, IntraCATHeter, Every 12 hours, First dose on 08/01/24 at 1730, Administer to each lumen, regardless of whether or not fluids are infusing. Line Care. Use 10 mL or larger syringe. 0530 (Not Given - Provider: Gloria Vides RN - Reason: Other)1730 (Not Given - Provider: Blue Middleton RN - Reason: Other) 0530 (Not Given - Provider: Joycelyn Welch RN - Reason: Other)1730 (Not Given - Provider: Blue Middleton RN - Reason: Other) 0530 (Not Given - Provider: Joycelyn Welch RN - Reason: Other) PRN Medication Order 08/08/2024 08/09/2024 08/10/2024 acetaminophen (Tylenol) tablet 650 mg(Linked Group 3) 650 mg, Oral, Every 4 hours PRN, mild pain (1-3), fever, Starting on 08/01/24 at 1331, If inadequate response within 60 minutes, proceed to next-line agent for same PRN reason or contact provider if no further options ordered. alteplase (Cathflo Activase) 2 mg in sterile water 2 mL injection 2 mg, IntraCATHeter, As needed, line care, Starting on Soni 07/29/24 at 0547, For occluded catheter ports. Instill 2 mg into each port, and retain for 0.5 - 2 hours. May repeat if catheter remains occluded. Dilute each 2 mg vial with 2.2 mL sterile water to give 1 mg/mL final concentration. Swirl gently to mix; do not shake. dextrose 5 % infusion 100 mL/hr, IntraVENous, PRN, Blood sugar less than 70mg/dL, Starting on Fri07/26/24 at 1809, Start infusion following administration of dextrose 50% or glucagon. 0611 (New Bag - Provider: Joycelyn Welch RN) dextrose 50 % solution 12.5 g 12.5 g, IntraVENous, PRN, low blood sugar, Blood glucose less than 70 mg/dL and patient NOT ALERT or NPO., Starting on Fri07/26/24 at 1809, If patient does not respond within 5 minutes, repeat dose x1. Start D5W at 100 mL/hour until ordering provider can be reached. Repeat blood glucose in 15 minutes. If blood glucose is less than 70 mg/dL, repeat treatment and recheck blood glucose in 15 minutes x2. If using Glucostabilizer, dose as instructed per system. 0153 (Given - Provider: Joycelyn Welch RN)0609 (Given - Provider: Joycelyn Welch RN) glucagon (human recombinant) injection 1 mg 1 mg, IntraMUSCular, PRN, low blood sugar, Blood glucose less than 70 mg/dL and patient NOT ALERT or NPO and does not have IV access., Starting on Fri07/26/24 at 1809, After administration, attempt intravenous access and start D5W at 100 mL/hr. Repeat blood glucose in 15 minutes x2 and notify provider. 0639 (Given - Provider: Joycelyn Welch RN) glucose oral gel 15 g 15 g, Oral, As needed, low blood sugar, Starting on Fri07/26/24 at 1809, If blood glucose less than 50 mg/dL and patient ALERT and NOT NPO, give 2 tubes glucose gel. If blood glucose less than 70 mg/dL and patient ALERT and NOT NPO, give 1 tube glucose gel. Repeat blood glucose in 15 minutes. If blood glucose is less than 70 mg/dL, repeat treatment and recheck blood glucose in 15 minutes x2 and notify provider. guaiFENesin (Robitussin) 100 MG/5ML liquid 200 mg 200 mg, Oral, Every 4 hours PRN, cough, congestion, Starting on Fri07/30/24 at 1615 heparin injection 1,200-2,000 Units 1,200-2,000 Units, IntraCATHeter, As needed, For hemodialysis system down vascular catheter, Starting on Fri08/03/24 at 1005, To ARTERIAL lumen. Use when system down. Dose based on lumen volume: 1,200 units = 1.2 mL 1,400 units = 1.4 mL 1,500 units = 1.5 mL 1,600 units = 1.6 mL 1,700 units = 1.7 mL 1,800 units = 1.8 mL 2,000 units = 2 mL 1224 (Given - Provid er: Yenny Keller RN) heparin injection 1,200-2,000 Units 1,200-2,000 Units, IntraCATHeter, As needed, For hemodialysis system down vascular catheter, Starting on Fri08/03/24 at 1005, To VENOUS lumen. Use when system down. Dose based on lumen volume: 1,200 units = 1.2 mL 1,400 units = 1.4 mL 1,500 units = 1.5 mL 1,600 units = 1.6 mL 1,700 units = 1.7 mL 1,800 units = 1.8 mL 2,000 units = 2 mL 1224 (Given - Provid er: Yenny Keller RN) naloxone (Narcan) injection 0.4 mg 0.4 mg, IntraVENous, Every 5 min PRN, opioid reversal, respiratory depression, Starting on Fri07/26/24 at 1717, +++ For RR <10, pinpoint pupils, over sedation for opioid reversal - MUST notify electronic instrument trades worker provider immediately after first dose, may give IM or SQ if no IV access +++ ondansetron (Zofran) injection 4 mg(Linked Group 4) 4 mg, IntraVENous, Every 6 hours PRN, nausea, vomiting, Starting on Fri07/26/24 at 1703, 1st Line. Give IV if patient is unable to take orally. If inadequate response within 60 minutes, proceed to next-line agent or contact provider if no further options ordered. ondansetron ODT (Zofran-ODT) disintegrating tablet 4 mg(Linked Group 4) 4 mg, Oral, Every 8 hours PRN, nausea, vomiting, Starting on Fri07/26/24 at 1703, 1st Line. If inadequate response within 60 minutes, proceed to next-line agent or contact provider if no further options ordered. Patient should allow tablet to dissolve on tongue. Do not remove from blister pack until just before administering. polyethylene glycol (PEG) 3350 (Miralax) packet 17 g 17 g, Oral, Daily PRN, constipation, Starting on Fri07/26/24 at 1703, 1st line for treatment of constipation - give scheduled if no bowel movement in past 24 hours. sodium chloride 0.9 % bolus 30 mL 30 mL, IntraVENous, at 180 mL/hr, Administer over 10 Minutes, PRN, for Remdesivir line flush, Starting on Fri07/26/24 at 1800, For 1 dose sodium chloride 0.9 % infusion 75 mL/hr, IntraVENous, PRN, if patient receiving piggyback infusions and maintenance fluids are not ordered OR KVO fluids to protect IV site / prevent frequent line interruptions / long duration, Starting on Fri07/26/24 at 1727, For piggyback infusion, administer at same rate as piggyback for a total of 25 mL. Enter 25 mL into dose field and piggyback rate into rate field of order. If piggyback is infusing at a rate less than 100 mL/hr, enter 25 mL into dose field and 100 mL/hr into rate field of order. For KVO fluids, enter rate of 20 mL/hr or less into rate field of order. sodium chloride 0.9 % infusion 250 mL/hr, IntraVENous, Administer over 10 Minutes, As needed, For use in priming line prior to transfusion (prime via gravity) and flush line post transfusion, Starting on Fri08/06/24 at 0306, For 1 dose, For use in priming line prior to transfusion (prime via gravity) and flush line post transfusion ONLY. Discontinue once line has been cleared of remaining blood product. sodium chloride 0.9% (NS) flush 10 mL 10 mL, IntraCATHeter, PRN, line care, before blood draws, before and after infusion or medication administration, Starting on Fri08/01/24 at 1724, Use 10 mL or larger syringe. Linked Groups Order Group 1: Insulin Lispro (Humalog) injection 0-12 UnitsJump to med 0-12 Units, SubCUTAneous, 3 times daily with meals, First dose on Fri08/06/24 at 1700, Medium Dose Correction Algorithm Glucose: Dose: LESS than 139 No Insulin 140-199 2 Unit 200-249 4 Units 250-299 6 Units 300-349 8 Units 350-400 10 Units Above 400 12 Units And Insulin Lispro (Humalog) injection 0-12 UnitsJump to med 0-12 Units, SubCUTAneous, Nightly, First dose on Fri08/06/24 at 2100, If continuous tube feedings/TPN/NPO, give correction dose based on result, no reduction in dose. If eating or bolus tube feeding: Medium Dose Correction Algorithm Glucose: Dose: LESS than 139 No Insulin 140-199 2 Unit 200-249 4 Units 250-299 6 Units 300-349 8 Units 350-400 10 Units Above 400 12 Units Group 2: pantoprazole (ProtoNix) EC tablet 40 mgJump to med 40 mg, Oral, Nightly, First dose on Fri08/04/24 at 2100, Do not crush, chew, or split. Or pantoprazole (ProtoNix) 40 mg in sodium chloride (PF) 0.9 % 10 mL injectionJump to med 40 mg, IntraVENous, Administer over 2 Minutes, Nightly, First dose on Fri08/04/24 at 2100, Give only if unable to tolerate po. Group 3: acetaminophen (Tylenol) tablet 650 mgJump to med 650 mg, Oral, Every 4 hours PRN, mild pain (1-3), fever, Starting on 08/01/24 at 1331, If inadequate response within 60 minutes, proceed to next-line agent for same PRN reason or contact provider if no further options ordered. Or Acetaminophen (Tylenol) 650 MG/20.3ML solution 650 mg (CANCELED) 650 mg, Oral, Every 4 hours PRN, mild pain (1-3), fever, Starting on 08/01/24 at 1331, Give oral liquid if patient prefers or per feeding tube if present. If inadequate response within 60 minutes, proceed to next-line agent for same PRN reason or contact provider if no further options ordered. Or acetaminophen (Tylenol) suppository 650 mg (CANCELED) 650 mg, Rectal, Every 4 hours PRN, mild pain (1-3), fever, Starting on 08/01/24 at 1331, Give [place] if unable to administer by mouth or feeding tube. If inadequate response within 60 minutes, proceed to next-line agent for same PRN reason or contact provider if no further options ordered. Group 4: ondansetron ODT (Zofran-ODT) disintegrating tablet 4 mgJump to med 4 mg, Oral, Every 8 hours PRN, nausea, vomiting, Starting on Fri07/26/24 at 1703, 1st Line. If inadequate response within 60 minutes, proceed to next-line agent or contact provider if no further options ordered. Patient should allow tablet to dissolve on tongue. Do not remove from blister pack until just before administering. Or ondansetron (Zofran) injection 4 mgJump to med 4 mg, IntraVENous, Every 6 hours PRN, nausea, vomiting, Starting on 07/26/24 at 1703, 1st Line. Give IV if patient is unable to take orally. If inadequate response within 60 minutes, proceed to next-line agent or contact provider if no further options ordered. Scheduled Medication Order 08/22/2024 08/23/2024 08/24/2024 aspirin EC tablet 81 mg 81 mg, Oral, Daily, First dose on Soni 08/12/24 at 1815, Do not crush, chew, or split. 0812 (Given - Provider: Calixto Sanchez RN) 0843 (Given - Provider: Nikolay Rene, RN) 0832 (Given - Provider: Sindy Garrison, RN) atorvastatin (Lipitor) tablet 20 mg 20 mg, Oral, Nightly, First dose on Soni 08/12/24 at 2100, Substituted for simvastatin (Zocor). 2042 (Given - Provider: Romero Tobin, MOODY) 2043 (Given - Provider: Juanis Rojas, MOODY) budesonide (Pulmicort) 1 MG/2ML nebulizer solution 1 mg 1 mg, Nebulization, 2 times daily, First dose on Fri08/20/24 at 2000, Rinse mouth with water after use to reduce aftertaste and incidence of candidiasis. Do not swallow. 0829 (Given - Provider: Radha Kelley RCP)1549 (Given - Provider: Radha Kelley RCP) 0758 (Given - Provider: Saroj Daigle RCP)1623 (Not Given - Provider: William Waterman - Reason: Patient not available - Comment: bed not in roomm) 0815 (Given - Provider: Bre Ortiz RRT)1533 (Given - Provider: Bre Ortiz RRT) busPIRone (Buspar) tablet 7.5 mg 7.5 mg, Oral, 2 times daily, First dose on Soni 08/12/24 at 2100 0812 (Given - Provider: Calixto Sanchez RN)204 (Given - Provider: Romero Tobin, MOODY) 0845 (Given - Provider: iNkolay Rene, MOODY)204 (Given - Provider: Juanis Rojas RN) 0834 (Given - Provider: Sindy Garrison RN) calcium gluconate 1000 mg in 100 mL IVPB premix (COMPLETED) 1,000 mg, IntraVENous, Administer over 1 Hours, Once, On Fri08/22/24 at 1200, For 1 dose, premix bag 1340 (Given - Provider: Calixto Sanchez RN) clopidogrel (Plavix) tablet 75 mg 75 mg, Oral, Daily, First dose on Soni 08/12/24 at 1815 0812 (Given - Provider: Calixto Sanchez RN) 0843 (Given - Provider: Nikolay Rene RN) 0900 (Given - Provider: Sindy Garrison, MOODY) fluticasone (Flonase) nasal spray 2 spray 2 spray, Each Nostril, Daily, First dose on Fri08/12/24 at 1815, Shake gently. Before first use, prime pump (press 6 times until fine spray appears). After use, clean tip and replace cap. 0900 (Not Given - Provider: Calixto Sanchez RN - Reason: Other - Comment: medication not available) 0900 (Not Given - Provider: Nikolay Rene RN - Reason: Medication not available) 0831 (Given - Provider: Sindy Garrison, MOODY) gabapentin (Neurontin) capsule 200 mg 200 mg, Oral, 2 times daily, First dose on Fri08/12/24 at 2100 0811 (Given - Provider: Calixto Sanchez RN)2042 (Given - Provider: Romero Tobin, MOODY) 0843 (Given - Provider: Nikolay Rene, MOODY)2043 (Given - Provider: Juanis Rojas, MOODY) 0833 (Given - Provider: Sindy Garirson, MOODY) guaiFENesin (Mucinex) 12 hr tablet 600 mg 600 mg, Oral, 2 times daily, First dose (after last modification) on Fri08/17/24 at 0900, Administer with plenty of fluids to ensure proper action. Do not crush, chew, or split. 0812 (Given - Provider: Calixto Sanchez RN)2042 (Given - Provider: Romero Tobin, MOODY) 0843 (Given - Provider: Nikolay Rene, MOODY)2043 (Given - Provider: Juanis Rojas RN) 0833 (Given - Provider: Sindy Garrison RN) heparin injection 5,000 Units 5,000 Units, SubCUTAneous, Every 12 hours scheduled (2 times per day), First dose on 08/16/24 at 1115 0811 (Given - Provider: Calixto Sanchez RN)2043 (Given - Provider: Romero Tobin, RN) 0842 (Given - Provider: Nikolay Rene RN)2041 (Given - Provider: Juanis Rojas, RN) 0832 (Given - Provider: Sindy Garrison, MOODY) insulin glargine (Lantus) injection 5 Units 5 Units, SubCUTAneous, Nightly, First dose (after last modification) on 08/22/24 at 2100 2046 (Given - Provider: Romero Tobin, RN) 2040 (Given - Provider: Juanis Rojas, RN) Insulin Lispro (Humalog) injection 0-6 Units 0-6 Units, SubCUTAneous, 3 times daily with meals, First dose on 08/21/24 at 1700, Low Dose Correction Algorithm Glucose: Dose: LESS than 139 No Insulin 140-199 1 Unit 200-249 2 Units 250-299 3 Units 300-349 4 Units 350-400 5 Units Above 400 6 Units 0813 (Given - Provider: Calixto Sanchez RN - Comment: error- pulled 5 units from pyxis- wasted 1 unit at bedside to admin 4 units per order)1214 (Given - Provider: Marylu Zamudio RN)1838 (Given - Provider: Marylu Zamudio RN) 0844 (Given - Provider: Nikolay Rene RN)1238 (Given - Provider: Nikolay Rene RN)1700 (Not Given - Provider: Nikolay Rene RN - Reason: Order parameters not met) 0834 (Given - Provider: Sindy Garrison, MOODY)1411 (Given - Provider: Sindy Garrison RN - Comment: late lunch)1700 (Canceled Entry - Provider: Automatic Discharge Provider - Comment: Automatically canceled at discontinue of medication order) Insulin Lispro (Humalog) injection 6 Units 6 Units, SubCUTAneous, 3 times daily with meals, First dose (after last modification) on Fri08/20/24 at 1200, Hold if not eating. 0812 (Given - Provider: Calixto Sanchez RN)1215 (Given - Provider: Marylu Zamudio RN)1837 (Given - Provider: Marylu Zamudio RN) 0844 (Given - Provider: Nikolay Rene RN)1238 (Given - Provider: Nikolay Rene RN)1817 (Given - Provider: Nikolay Rene, MOODY) 0840 (Given - Provider: Sindy Garrison, RN)1413 (Given - Provider: Sindy Garrison RN - Comment: late lunch)1700 (Canceled Entry - Provider: Automatic Discharge Provider - Comment: Automatically canceled at discontinue of medication order) ipratropium-albuterol (Duo-Neb) 0.5-2.5 mg/3 mL nebulizer solution 3 mL 3 mL, Nebulization, 4 times daily, First dose (after last modification) on Fri08/20/24 at 1600, Do not decrease frequency until pulmonology approves 0827 (Given - Provider: Radha Kelley RCP)1252 (Given - Provider: Radha Kelley RCP)1547 (Given - Provider: Radha Kelley RCP)2029 (Given - Provider: Bernadette Abraham RRT) 0747 (Given - Provider: Saroj Daigle RCP)1131 (Given - Provider: Saroj Daigle RCP)1623 (Not Given - Provider: William Waterman - Reason: Patient not available - Comment: bed not in room,)2004 (Given - Provider: Daina Carvalho RRT) 0814 (Given - Provider: Bre Ortiz RRT)1205 (Given - Provider: Bre Ortiz RRT)1532 (Given - Provider: Bre Ortiz RRT)2000 (Canceled Entry - Provider: Automatic Discharge Provider - Comment: Automatically canceled at discontinue of medication order) lisinopril tablet 2.5 mg 2.5 mg, Oral, Daily, First dose on Fri08/12/24 at 1815 0812 (Given - Provider: Calixto Sanchez RN) 0843 (Given - Provider: Nikolay Rene RN) 0833 (Given - Provider: Sindy Garrison RN) metoprolol tartrate (Lopressor) tablet 25 mg 25 mg, Oral, 2 times daily, First dose (after last modification) on 08/14/24 at 2100, On hold since Fri08/20/2024 at 2124 until manually unheld 0900 (Dose Auto Held - Provider: Lidia Renee MD)2099 (Dose Auto Held - Provider: Lidia Renee MD) 0900 (Dose Auto Held - Provider: Lidia Renee MD)2099 (Dose Auto Held - Provider: Lidia Renee MD) 09 (Dose Auto Held - Provider: Lidia Renee MD)2024 (Unheld by provider - Provider: Automatic Discharge Provider) mirtazapine (Remeron) tablet 7.5 mg 7.5 mg, Oral, Nightly, First dose on Soni 08/12/24 at 2100, On hold since Fri08/20/2024 at 1323 until manually unheld 2099 (Dose Auto Held - Provider: Glenda Ma MD) 2099 (Dose Auto Held - Provider: Glenda Ma MD) 2024 (Unheld by provider - Provider: Automatic Discharge Provider) mometasone-formoterol (Dulera 200) 200-5 MCG/ACT inhaler 2 puff 2 puff, Inhalation, 2 times daily, First dose on Soni 08/12/24 at 2000, Rinse mouth with water after use to reduce aftertaste and incidence of candidiasis. Do not swallow., On hold since Fri08/20/2024 at 1428 until manually unheld 08 (Dose Auto Held - Provider: Glenda Ma MD)1999 (Dose Auto Held - Provider: Glenda Ma MD) 08 (Dose Auto Held - Provider: Glenda Ma MD)1999 (Dose Auto Held - Provider: Glenda Ma MD) 08 (Dose Auto Held - Provider: Glenda Ma MD)2024 (Unheld by provider - Provider: Automatic Discharge Provider) pantoprazole (ProtoNix) EC tablet 40 mg 40 mg, Oral, Nightly, First dose on Fri08/15/24 at 2100, Do not crush, chew, or split. 2042 (Given - Provider: Romero Tobin RN) 2044 (Given - Provider: Juanis Rojas RN) polyethylene glycol (PEG) 3350 (Miralax) packet 17 g 17 g, Oral, Daily, First dose on Fri08/17/24 at 1700 0811 (Given - Provider: Calixto Sanchez RN) 0839 (Given - Provider: Nikolay Rene RN) 0831 (Given - Provider: Sindy Garriosn, MOODY) potassium chloride CR (Klor-Con M10) ER tablet 20 mEq (CANCELED) 20 mEq, Oral, Daily, First dose on Fri08/22/24 at 1300, Best given with food and plenty of water to minimize gastric irritation. Do not crush or chew. 1338 (Given - Provider: Calixto Sanchez RN) predniSONE (Deltasone) tablet 20 mg (CANCELED)(Linked Group 1) 20 mg, Oral, Daily, First dose on Fri08/20/24 at 0900, For 3 doses 0812 (Given - Provider: Calixto Sanchez RN) QUEtiapine (SEROquel) tablet 25 mg 25 mg, Oral, Nightly, First dose on Fri08/13/24 at 0130, On hold since Fri08/20/2024 at 1323 until manually unheld 2100 (Dose Auto Held - Provider: Glenda Ma MD) 2100 (Dose Auto Held - Provider: Glenda Ma MD) 2024 (Unheld by provider - Provider: Automatic Discharge Provider) Roflumilast (Daliresp) tablet 500 mcg 500 mcg, Oral, Daily, First dose on Fri08/24/24 at 1215 1421 (Given - Provid er: Sindy Garrison RN) sodium chloride 0.9% (NS) flush 5-40 mL 5-40 mL, IntraVENous, Every 8 hours, First dose on Fri08/21/24 at 1915, For Line Patency: Peripheral IV = 5 mL; Midline or Central Line = 10 mL/lumen. If following IV push medication, administer flush at same rate as the IV push. Flush volume is determined by type of infusion therapy being given. For non-viscous solutions use: Peripheral IV = 5 mL Midline or Central Line = 10 mL/lumen For viscous solutions (i.e. blood components, parenteral nutrition, contrast media, or after obtaining blood sample) use: Peripheral IV = 10 mL Midline or Central Line = 20 mL/lumen 0600 (Given - Provider: Izzy Goddard RN)1340 (Given - Provider: Calixto Sanchez RN)2200 (Canceled Entry - Provider: Romero Tobin, MOODY) 0600 (Canceled Entry - Provider: Romero Tobin, MOODY)1400 (Not Given - Provider: Nikolay Rene RN - Reason: Other)2200 (Given - Provider: Juanis Rojas RN) 0600 (Given - Provider: Juanis Rojas RN)1400 (Given - Provider: Sindy Garrison, MOODY) tamsulosin (Flomax) 24 hr capsule 0.4 mg 0.4 mg, Oral, Daily, First dose on 08/22/24 at 1115, Do not crush, chew, or split. 1338 (Given - Provider: Calixto Sanchez RN - Comment: clustered w meds 2/ availability) 0843 (Given - Provider: Nikolay Rene RN) 0832 (Given - Provider: Sindy Garrison, MOODY) tiotropium (Spiriva Respimat) 2.5 MCG/ACT inhaler 2 puff 2 puff, Inhalation, Daily, First dose on Soni 08/12/24 at 1815, On hold since Fri08/20/2024 at 1428 until manually unheld 09 (Dose Auto Held - Provider: Glenda Ma MD) 899 (Dose Auto Held - Provider: Glenda Ma MD) 899 (Dose Auto Held - Provider: Glenda Ma MD)2024 (Unheld by provider - Provider: Automatic Discharge Provider) PRN Medication Order 08/22/2024 08/23/2024 08/24/2024 acetaminophen (Tylenol) tablet 650 mg 650 mg, Oral, Every 6 hours PRN, mild pain (1-3), Starting on 08/21/24 at 2047, Maximum dose of acetaminophen is 4000 mg from all sources in 24 hours. dextrose 5 % infusion 100 mL/hr, IntraVENous, PRN, Blood sugar less than 70mg/dL, Starting on Soni 08/12/24 at 1808, Start infusion following administration of dextrose 50% or glucagon. dextrose 50 % solution 12.5 g 12.5 g, IntraVENous, PRN, low blood sugar, Blood glucose less than 70 mg/dL and patient NOT ALERT or NPO., Starting on Fri08/12/24 at 1808, If patient does not respond within 5 minutes, repeat dose x1. Start D5W at 100 mL/hour until ordering provider can be reached. Repeat blood glucose in 15 minutes. If blood glucose is less than 70 mg/dL, repeat treatment and recheck blood glucose in 15 minutes x2. If using Glucostabilizer, dose as instructed per system. glucagon (human recombinant) injection 1 mg 1 mg, IntraMUSCular, PRN, low blood sugar, Blood glucose less than 70 mg/dL and patient NOT ALERT or NPO and does not have IV access., Starting on Fri08/12/24 at 1808, After administration, attempt intravenous access and start D5W at 100 mL/hr. Repeat blood glucose in 15 minutes x2 and notify provider. glucose oral gel 15 g 15 g, Oral, As needed, low blood sugar, Starting on Fri08/12/24 at 1808, If blood glucose less than 50 mg/dL and patient ALERT and NOT NPO, give 2 tubes glucose gel. If blood glucose less than 70 mg/dL and patient ALERT and NOT NPO, give 1 tube glucose gel. Repeat blood glucose in 15 minutes. If blood glucose is less than 70 mg/dL, repeat treatment and recheck blood glucose in 15 minutes x2 and notify provider. heparin injection 1,600 Units 1,600 Units, IntraCATHeter, As needed, line care, Starting on Fri08/23/24 at 1731 1733 (Given - Provider: Joycelyn Keller, RN) heparin injection 1,700 Units 1,700 Units, IntraCATHeter, As needed, line care, Starting on Fri08/23/24 at 1731 1733 (Given - Provider: Joycelyn Keller, RN) ondansetron (Zofran) injection 4 mg(Linked Group 2) 4 mg, IntraVENous, Every 6 hours PRN, nausea, vomiting, Starting on Fri08/12/24 at 1808, 1st Line. Give IV if patient is unable to take orally. If inadequate response within 60 minutes, proceed to next-line agent or contact provider if no further options ordered. ondansetron ODT (Zofran-ODT) disintegrating tablet 4 mg(Linked Group 2) 4 mg, Oral, Every 8 hours PRN, nausea, vomiting, Starting on Fri08/12/24 at 1808, 1st Line. If inadequate response within 60 minutes, proceed to next-line agent or contact provider if no further options ordered. Patient should allow tablet to dissolve on tongue. Do not remove from blister pack until just before administering. senna-docusate sodium (Senokot-S) 8.6-50 MG tablet 2 tablet 2 tablet, Oral, Daily PRN, constipation, Please administer if no BM within 24 hrs, Starting on Fri08/17/24 at 1646 sodium chloride (Potrero) 0.65 % nasal spray 1 spray 1 spray, Each Nostril, PRN, congestion, Starting on Fri08/13/24 at 2252 sodium chloride 0.9 % infusion 250 mL/hr, IntraVENous, Administer over 10 Minutes, As needed, For use in priming line prior to transfusion (prime via gravity) and flush line post transfusion, Starting on Fri08/12/24 at 1901, For 1 dose, For use in priming line prior to transfusion (prime via gravity) and flush line post transfusion ONLY. Discontinue once line has been cleared of remaining blood product. Linked Groups Order Group 1: predniSONE (Deltasone) tablet 40 mg (COMPLETED) 40 mg, Oral, Daily, First dose on Fri08/14/24 at 0900, For 3 doses Followed by predniSONE (Deltasone) tablet 30 mg (COMPLETED) 30 mg, Oral, Daily, First dose on Fri08/17/24 at 0900, For 3 doses Followed by predniSONE (Deltasone) tablet 20 mg (CANCELED)Jump to med 20 mg, Oral, Daily, First dose on Fri08/20/24 at 0900, For 3 doses Followed by predniSONE (Deltasone) tablet 10 mg (CANCELED) 10 mg, Oral, Daily, First dose on Fri08/23/24 at 0900, For 3 doses Followed by predniSONE (Deltasone) tablet 5 mg (CANCELED) 5 mg, Oral, Daily, First dose on Fri08/26/24 at 0900, For 3 doses Group 2: ondansetron ODT (Zofran-ODT) disintegrating tablet 4 mgJump to med 4 mg, Oral, Every 8 hours PRN, nausea, vomiting, Starting on Fri08/12/24 at 1808, 1st Line. If inadequate response within 60 minutes, proceed to next-line agent or contact provider if no further options ordered. Patient should allow tablet to dissolve on tongue. Do not remove from blister pack until just before administering. Or ondansetron (Zofran) injection 4 mgJump to med 4 mg, IntraVENous, Every 6 hours PRN, nausea, vomiting, Starting on Soni 08/12/24 at 1808, 1st Line. Give IV if patient is unable to take orally. If inadequate response within 60 minutes, proceed to next-line agent or contact provider if no further options ordered. Source Comments (unrecognize d section and content) In the event this informatio n is protected by the Federal Confidentiality of Alcohol and Drug Abuse Patient Records regulations: The Federal rules restrict any use of the information to criminally investigate or prosecute any alcohol or drug abuse patient.[facility] the event this information is protected by the Federal Confidentiality of Alcohol and Drug Abuse Patient Records regulations: The Federal rules restrict any use of the information to criminally investigate or prosecute any alcohol or drug abuse patient.[facility] the event this information is protected by the Federal Confidentiality of Alcohol and Drug Abuse Patient Records regulations: The Federal rules restrict any use of the information to criminally investigate or prosecute any alcohol or drug abuse patient.[facility] FOR RECORDS PERTAINING TO PATIENTS WHO [...] BE BASED ON THE PRIMARY CLINICAL RECORDS. [facility]. provides no warranty or guarantee of the accuracy or completeness of information in this document.
[2025-04-09 11:41] LABS: Potassium 2.3 mmol/L (3.3-5.1)
== END 2025-04-09 23:59 | disposition home or self-care (01) ==
LOC: LAB 10:46
PROVIDERS: PCP Family Medicine; Referring Provider Internal Medicine Nephrology; Visit Provider Internal Medicine Nephrology
DX: E87.6 Hypokalemia (principal)
CPT/HCPCS: 36415; 84132

== ENCOUNTER 2025-04-09 12:22 | Emergency (ER) | payer MEDICARE, OTHER, SELFPAY ==
[2025-04-09 12:22] VITALS: BP 159/45; PULSE 50; RESP 16; TEMP 36.6; O2SAT 100
--- NOTE | 2025-04-09 12:36 | EDS_ITS ---
HPI History of Present Illness Chief Complaint: Abn Labs Detail of Chief Complaint: Sent to ER for low potassium Informant: patient, spouse/S.O. and other Onset/Context/Timing Onset: - (Abnormal lab noted today.) Context: - (Unknown) Timing: Continuous (Presumed) Quality: Tired and sleepy compared to normal Location: Renal Current Severity: Moderate Maximum Severity: Moderate Worsened by: Uncertain Relieved by: Not applicable Associated Symptoms Associated Symptoms: No paresthesia anesthesia or any cardiovascular symptoms. Narrative Narrative: Patient is a 64-year-old woman. She is seen by Dr. Huerta the clerical assigner. She has history of end-stage renal disease with estimated GFR approximately 15. Patient had outpatient blood work that revealed a potassium of 2.3. She was sent to the ER for IV potassium. Patient denies headache, visual, ocular auditory symptoms. Denies trouble with speech or swallowing. She denies paresthesia, anesthesia Medicus. She does states she has been more sleepy. She denies cardiac or respiratory symptoms. She does report intermittent dry heaves. She has 2 bowel movements per day. They are not watery. She is she still makes urine. She is not on a thiazide or loop diuretic. Med list was reviewed and she is not on any type of water pill. She does have history of chronic respiratory failure on oxygen. Prior similar symptoms: No Recent Illness/Hospitalization: No PFSH PFSH Medical History On home oxygen therapy Wears hearing aid Wears glasses Post-menopausal Insulin dependent diabetes mellitus Diabetes History of renal dialysis History of renal disease Anemia High cholesterol Easy bruising Excessive bleeding Injury of head and neck Former smoker Emphysema, unspecified History of edema History of echocardiogram History of stress test Cardiology follow-up encounter Osteoporosis Presence of insulin pump Severely underweight adult Lung nodule, multiple Nicotine abuse Lung nodule, solitary Fissure in skin of foot Natoma's sign present Tobacco abuse CKD (chronic kidney disease) stage 4, GFR 15-29 ml/min Body mass index (BMI) less than 16.5 Underweight Polyneuropathy due to type 1 diabetes mellitus Stage 4 chronic kidney disease due to type 1 diabetes mellitus Respiratory failure with hypoxia Smoking greater than 30 pack years Anemia Diabetic nephropathy, type I Hyperkalemia Renal insufficiency Diabetes Chronic obstructive pulmonary disease Essential (primary) hypertension Hypersomnia Anxiety Depression Atherosclerosis of coronary artery of [place] heart without angina pectoris NSTEMI (non-ST elevated myocardial infarction) (01/12/18) DM type 1 (diabetes mellitus, type 1) Hyperlipidemia COPD (chronic obstructive pulmonary disease) Home Medications ?Medication ?Instructions ?Recorded ?Last Taken ?Type simvastatin 40 mg tablet 40 mg PO QHS cholesterol 01/03/25 History albuterol sulfate 2.5 mg/3 mL 2.5 mg (3 mL) inhalation Q2H PRN 06/23/18 Unknown Rx (0.083 %) solution for nebulization PRN dyspnea, wheez ing ##1 aspirin 81 mg tablet,delayed 81 mg PO DAILY heart heal th 12/31/19 01/03/25 History release oxygen See Rx Instructions NASAL .C OMPLEX 12/03/23 01/04/25 History O2 therapy ipratropium 0.5 mg-albuterol 3 mg 3 ml inhalation Q4H PRN PRN SOB 12/29/23 Unknown Rx (2.5 mg base)/3 mL nebulization &/OR WHEEZING #180 mL soln denosumab 60 mg/mL subcutaneous 60 mg subcut [id number] bone health 06/10/24 07/09/24 Rx syringe (Prolia) #1 mL clopidogrel 75 mg tablet 75 mg PO DAILY anti platelet #90 07/26/24 01/03/25 Rx tabs gabapentin 800 mg tablet 200 mg PO BID neuropathy 03/2601/03/25 History nitroglycerin 0.4 mg sublingual 0.4 mg sublingual Q5-1 5M PRN chest 10/21/24 Unknown Rx tablet pain #25 tabs lisinopril 2.5 mg tablet 2.5 mg PO BID Blood pressure 11/04/24 01/03/25 History metoprolol tartrate 50 mg tablet 50 mg PO BID blood pr essure #180 11/11/24 01/03/25 Rx tabs amlodipine 10 mg tablet (Norvasc) 10 mg PO DAILY blood pressure 30 11/20/24 01/03/25 Rx days #30 tabs roflumilast 500 mcg tablet 500 mcg PO DAILY breathing #30 tabs 12/03/24 01/03/25 Rx (Daliresp) buspirone 7.5 mg tablet 7.5 mg PO DAILY Antianxiety 12/14/24 01/03/25 History sevelamer carbonate 800 mg tablet 800 mg PO TID To low er Phosphorus 12/14/24 01/03/25 History fluticasone fur. 200 mcg-umeclid 1 inh inhalation HAJA Y breathing 12/30/24 01/03/25 Rx 62.5 mcg-vilant 25 mcg #3 ea inhalat.powder (Trelegy Ellipta) cefdinir 300 mg capsule 300 mg PO BID 5 days #10 cap s 01/06/25 Unknown Rx pseudoephedrine-guaifenesin ER 60 1 tab PO BID cold sy mptoms #14 tabs 01/06/25 Unknown Rx mg-600 mg tablet,extend release 12hr (Mucinex D) hydralazine 25 mg tablet 25 mg PO TID blood pressure #90 02/08/25 Unknown Rx tabs blood-glucose sensor (FreeStyle #6 ea 02/09/25 Unknown Rx Eileen 2 Plus Sensor device) insulin pump cart,auto,BT,G6/L #30 ea 02/09/25 Unknown Rx (Omnipod 5 (G6/Eileen 2 Plus) subcutaneous cartridge) albuterol sulfate 90 mcg/actuation 2 puff inhalation Q 6H PRN PRN 03/14/25 Unknown Rx aerosol inhaler Cough #8.5 grams blood-glucose sensor (Dexcom G6 #3 ea 04/07/25 Unknown Rx Sensor device) blood-glucose transmitter (Dexcom #1 ea 04/07/25 Unkno wn Rx G6 Transmitter device) insulin lispro 100 unit/mL 60 unit (0.6 mL) continuous 04/07/25 Unknown Rx subcutaneous solution (Humalog subcutaneous infusion . continuous U-100 Insulin) #54 mL Allergy/AdvReac Type Severity Reaction Status Date / Time No Known Allergies Allergy Verified 04/09/25 12:26 Family History Mother Heart disease COPD (chronic obstructive pulmonary disease) Lupus Daughter Growth disorder Down syndrome Fibromyalgia Grandfather Colon cancer Diabetes Grandmother Heart disease CVA (cerebral vascular accident) Diabetes Pulmonary disease Sister Hypertension Kidney disease Surgical History Hx of surgical procedure History of cardiac catheterization History of coronary artery stent placement Hx of surgical procedure H/O: Hx of appendectomy H/O: hysterectomy History of coronary artery stent placement (02/04/18) Social History household members: spouse housing: house pets and animals: Yes pets and animals: cat(s) Smoking Status: Former smoker how long ago did patient quit smoking: Since 05/2024 cut back and has only had ~ 10 cigarettes since then. quit status: considering quitting alcohol intake: never substance use type: does not use caffeine: Yes Type: carbonated beverages Number of servings: 4 what type of physical activity do you participate in: none seatbelt use: always do you feel safe at home: Yes ROS ROS ED Constitutional Constitutional ED: Denies chills, fever(s) or subjective Eyes Eyes: Denies blurry vision or change in vision ENT ENT ED: Denies rhinorrhea or sore throat Cardiovascular Cardiovascular: Denies chest pain or palpitations Respiratory/Chest Respiratory/Chest: Reports dyspnea on exertion and other Details: Dyspnea with activity is chronic. ; Denies cough or dyspnea Gastrointestinal Gastrointestinal: Reports nausea; Denies abdominal pain, diarrhea, melena or vomiting Genitourinary Genitourinary ED: Denies dysuria, hematuria or urinary frequency Musculoskeletal Musculoskeletal: Denies arthralgias or myalgias Integumentary Denies rash Neurologic Neurologic: Reports weakness; Denies headache(s) or paresthesias Hematologic/Lymphatic Hematologic/Lymphatic: Reports systems reviewed and no addt'l complaints, except as documented EXAM Physical Exam Const Vital Signs: 04/09/25 12:22 Temperature 97.8 F Temperature Source Oral Pulse Rate 50 L Respiratory Rate 16 Blood Pressure 159/45 H Blood Pressure Mean 83 Pulse Ox 100 Oxygen Delivery Method Nasal Cannula Oxygen Flow Rate (L/min) 3 Positive well nourished and well developed General Appearance ED: well developed and NAD; Negative for pallor HEENT Reports moist mucous membranes HEENT Narrative: Head is atraumatic normocephalic. Ears normal. Nares patent. Posterior pharynx is normal. Eyes PERRL and EOMs intact bilaterally General Eye ED: Negative for pale conjunctiva or scleral icterus Neck no lymphadenopathy, supple and no JVD Chest Wall inspection of chest normal and palpation of chest normal Resp normal respiratory effort and clear to auscultation bilaterally Cardio regular rate, regular rhythm, S1 normal heart sound, S2 normal heart sound and no murmurs GI normal to inspection, nondistended, normoactive bowel sounds, non-tender, non- distended and no masses; Negative for hepatosplenomegaly GI Narrative: There is no pulsatile mass or abdominal bruit. Back/Spine no CVA tenderness Extremity normal to inspection Neuro oriented x3, CN's II-XII intact bilaterally and no sensory deficits noted Sensorium / Orientation: alert Motor Exam: strength 5/5 throughout Psych Mood & Affect: depressed Skin no rashes or lesions noted, no wounds and No skin turgor normal General Skin Exam: Negative for jaundice or pallor MDM MDM MDM Narrative Medical decision making narrative: Patient presents with hypokalemia. Uncertain cause. Will obtain a BMP to assess renal function and also obtain a magnesium. If her magnesium is low she will need that corrected otherwise we will have difficulty correcting her potassium. Patient was treated with p.o. potassium. She received a total of 120 mEq. This was preferred over IV because of cost, possible irritation to the vessel and the fact that absorption is quick and able to administer 120 mEq versus 20-30 over 2 to 3 hours. History & Record Review Additional record(s) reviewed:: Prior outpatient record and Prior labs Lab Data Attestation: I reviewed the patient's lab results. Lab results narrative: Magnesium is 2.8. Creatinine is 3.39, which is patient's baseline. Glucose is elevated 151 with a normal CO2 anion gap. Magnesium is normal. Labs: Laboratory Results - last 24 hr 04/09/25 12:37 Sodium 142 Potassium 2.8 L Chloride 102 Carbon Dioxide 31.4 Anion Gap 8 BUN 19 Creatinine 3.39 H Est GFR (MDRD) Non-Af 14 L BUN/Creatinine Ratio 5.6 L Glucose 151 H Calcium 9.2 Magnesium 2.2 EKG Initial EKG: Attestation: I personally reviewed and interpreted this EKG as follows: Interpretation: Sinus Bradycardia (Rate is 52. [place] to the left. ME interval is 176 ms. QRS duration 104 ms. There is evidence of a incomplete right bundle branch block. QT duration is 458 ms. There is evidence of LVH by voltage criteria. There is also decreased anterior force. There appears to be a U wave. This would be con) Treatment and Re-Evaluation :: Once patient receives her oral doses of potassium should be able to be discharged to home. Patient received 3 doses at once instead of spread out over an hour. Patient be discharged to home Discharge Plan Triage Chief Complaint: Abn Labs ED Provider: Milind Heath Dx/Rx/DC Orders Clinical Impression: Acute hypokalemia, End-stage renal disease on hemodialysis, Atherosclerosis of coronary artery of [place] heart without angina pectoris, Chronic obstructive pulmonary disease, Hypertension, High cholesterol, Nondiabetic hyperglycemia Instructions: ED Hypokalemia Prescriptions: No Action aspirin 81 mg tablet,delayed release (DR/EC) 81 mg PO DAILY gabapentin 800 mg tablet 200 mg PO BID oxygen See Rx Instructions NASAL .COMPLEX Rx Instructions: 3L NASALLY; 3 l lisinopril 2.5 mg tablet 2.5 mg PO BID simvastatin 40 MG tablet 40 mg PO QHS albuterol sulfate 2.5 MG/3 ML solution for nebulization 2.5 mg INHALATION Q2H PRN PRN (Reason: dyspnea, wheezing) Qty: 1 0RF amlodipine [Norvasc] 10 mg tablet 10 mg PO DAILY 30 Days Qty: 30 0RF sevelamer carbonate 800 mg tablet 800 mg PO TID buspirone 7.5 mg tablet 7.5 mg PO DAILY Patient Comments: PT ONLY WANTS TO TAKE ONCE PER DAY cefdinir 300 mg capsule 300 mg PO BID 5 Days Qty: 10 0RF pseudoephedrine-guaifenesin [Mucinex D] 60-600 mg tablet extended release 12 hr 1 tab PO BID Qty: 14 0RF ipratropium-albuterol 0.5 mg-3 mg(2.5 mg base)/3 mL solution for nebulization 3 ml inhalation Q4H PRN PRN (Reason: SOB &/OR WHEEZING) Qty: 180 6RF Prolia 60 mg/mL syringe 60 mg subcut [id number] Qty: 1 1RF Patient Comments: Next injection is 01/06/2025 clopidogrel 75 mg tablet 75 mg PO DAILY Qty: 90 3RF nitroglycerin 0.4 mg tablet, sublingual 0.4 mg SUBLINGUAL Q5-15M PRN (Reason: chest pain) Qty: 25 44RF Rx Instructions: until response; do not exceed 3 doses per episode metoprolol tartrate 50 mg tablet 50 mg PO BID Qty: 180 3RF roflumilast [Daliresp] 500 mcg tablet 500 mcg PO DAILY Qty: 30 11RF Trelegy Ellipta 200-62.5-25 mcg blister with device 1 inh inhalation DAILY Qty: 3 0RF hydralazine 25 mg tablet 25 mg PO TID Qty: 90 3RF (DME) FreeStyle Eileen 2 Plus Sensor Device See Rx Instructions .Route Qty: 6 2RF Rx Instructions: 1 sensor q 15 days (DME) Omnipod 5 (G6/Eileen 2 Plus) Cartridge See Rx Instructions .Route Qty: 30 2RF Rx Instructions: 1 pod q 3 days, must be compatible with eileen 2 plus albuterol sulfate 90 mcg/actuation HFA aerosol inhaler 2 puff INHALATION Q6H PRN PRN (Reason: Cough) Qty: 8.5 2RF insulin lispro [Humalog U-100 Insulin] 100 unit/mL solution 60 unit continuous subcutaneous infusion .continuous Qty: 54 1RF Rx Instructions: via insulin pump Advised to increase the insulin pump (DME) Dexcom G6 Sensor Device See Rx Instructions .Route Qty: 3 5RF Rx Instructions: 1 sensor q 10 days (DME) Dexcom G6 Transmitter Device See Rx Instructions .Route Qty: 1 1RF Rx Instructions: 1 transmitter q 90 days Primary Care Provider: Bird Lujan Referrals: Christy Huerta DO [Med Staff - Consulting] - 3-5 Days Bird Lujan MD [Primary Care Provider] - 1 Week Print Language: Salvadorean Disposition Disposition: Home, Self Care
--- NOTE | 2025-04-09 12:41 | EKG12_ITS ---
Test Reason : Blood Pressure : */* mmHG Vent. Rate : 52 BPM Atrial Rate : 52 BPM P-R Int : 176 ms QRS Dur : 104 ms QT Int : 458 ms P-R-T Axes : 77 -60 85 degrees QTcB Int : 425 ms Sinus bradycardia Left axis deviation Incomplete right bundle branch block Minimal voltage criteria for LVH, may be normal variant ( [place] product ) Septal infarct , age undetermined Abnormal ECG Confirmed by CASI DAIGLE, FELIPA ([id number]), film and video editor ARNALDO FENTON ([id number]) on 04/11/2025 6:16:08 AM Referred By: TB Confirmed By: FELIPA LANCE MD
[2025-04-09] MEDS: Potassium Chloride Oral Soln 20 MEQ/15 ML UDC 40 MEQ PO ×3 (12:48)
--- OUTSIDE RECORDS SUMMARY | 2025-04-09 13:01 | XMS RPT_ITS | CCD ---
Author Organization [facility] CliniSydc Care Team Providers Care Geology Professor Name Role Phone Ruggeri VINE [employer] SUPERVISOR, Ana Rosa F Unavailable Unavailabl e Ruggeri [employer] SUPERVISOR, Ana Rosa F Unavailable Unavailabl e Dr. Sin Lujan Primary Care Provider Dr. Sin Lujan Referring Provider ELLIE Medrano Attending Provider Dr. Rios Cordova Attending Provider [phone] ELLIE Medrano Attending Provider Dr. Rios Cordova Referring Provider [phone] None, No PCP Unavailable Unavailable Dr. Sin Lujan Primary Care Provider Dr. Sin Lujan Referring Provider Susan LANDSCAPE CREW MEMBER, LANDSCAPE CREW MEMBER-Marquis Meeks Attending Provider [phone] ELLIE Medrano Attending Provider [phone] Susan JUÁREZ, MARQUITA-C Jeanna Referring Provider Susan JUÁREZ, LANDSCAPE CREW MEMBER-C Jeanna Other Provider Dr. Rios Cordova Attending Provider Dr. Sin Lujan Primary Care Provider Dr. Sin Lujan Referring Provider ELLIE Medrano Attending Provider [phone] Susan LANDSCAPE CREW MEMBER, LANDSCAPE CREW MEMBER-C Jeanna Referring Provider [phone] Susan LANDSCAPE CREW MEMBER, LANDSCAPE CREW MEMBER-C Jeanna Other Provider Dr. Rios Cordova Attending Provider [phone] Rios Cordova Referring Provider Dr. Sin Lujan Primary Care Provider [phone] Dr. Sin Lujan Referring Provider ELLIE Medrano Attending Provider Susan LANDSCAPE CREW MEMBER, LANDSCAPE CREW MEMBER-C Jeanna Attending Provider [phone] BENTON Hardy Referring Provider BENTON Hardy Other Provider Dr. Salomon Robbins Attending Provider Radha Aranda Attending Provider Unavailable Dr. Sin Lujan Primary Care Provider [phone] Dr. Sin Lujan Referring Provider Heidi Russell Attending Provider Unavailable BENTON Hardy Attending Provider Susan LANDSCAPE CREW MEMBER, LANDSCAPE CREW MEMBER-C Jeanna Referring Provider [phone] Susan LANDSCAPE CREW MEMBER, LANDSCAPE CREW MEMBER-C Jeanna Other Provider Dr. Rios Cordova Attending Provider Dr. Sin Lujan Primary Care Provider Dr. Sin Lujan Referring Provider Dr. Terrance Alva Attending Provider Susan LANDSCAPE CREW MEMBER, LANDSCAPE CREW MEMBER-C Jeanna Referring Provider [phone] Susan LANDSCAPE CREW MEMBER, LANDSCAPE CREW MEMBER-C Jeanna Other Provider Dr. Sin Lujan Primary Care Provider Dr. Terrance Alva Attending Provider Dr. Sin Lujan Referring Provider Dr. Rios Cordova Attending Provider [phone] ELLIE Medrano Attending Provider Dr. Sin Lujan Primary Care Provider [phone] Dr. Sin Lujan Primary Care Provider Dr. Sin Lujan Referring Provider Susan LANDSCAPE CREW MEMBER, LANDSCAPE CREW MEMBER-C Jeanna Attending Provider [phone] Dr. Sin Lujan Primary Care Provider Dr. Sin Lujan Referring Provider Du LANDSCAPE CREW MEMBER, LANDSCAPE CREW MEMBER-C Kena Attending Provider Dr. Sin Lujan Primary Care Provider Dr. Sin Lujan Referring Provider Susan LANDSCAPE CREW MEMBER, LANDSCAPE CREW MEMBER-C Jeanna Attending Provider Du LANDSCAPE CREW MEMBER, LANDSCAPE CREW MEMBER-C Kena Attending Provider MARQUITA Medrano-Marquis Gutierrez Attending Provider Dr. Bird Lujan Primary Care Provider Dr. Bird Lujan Referring Provider Susan LANDSCAPE CREW MEMBER, LANDSCAPE CREW MEMBER-C Jeanna Attending Provider Bird Lujan Primary Care Provider Bird Lujan Primary Care Provider [phone] Lars RN, Param Unavailable Unavailable Lars RN, Param Unavailable Unavailable Lars RN, Param Unavailable Unavailable COLIN PEOPLES Referring Unavailable TAIANN KLEIN FORENSIC CENTERER Primary Care Unavailable INO CONTE Admitting Unavailable JONI ARANA Consulting Unavailab FLY Adhikari Attending Unavailable ELIZABETH TYLER Referring Unavailable RA[facility]KIAK, [facility] Primary Care Unavailable TORITO MAHAJAN Referring Unavailable [facility] Unavailable SUNI BROWN Referring Unavailable RANNEY, [facility] Primary Care Unavailable TARI BRIGGS Consulting Unavailable KEMAR ADAMES Admitting Unavailable SAVITA DENISE Attending Unavailable TORITO MAHAJAN Referring Unavailable RANNEY, [facility] Primary Care Unavailable MADELINE MONTALVO Attending Unavailable MADELINE MONTALVO Referring Unavailable [facility] Primary Care Unavailable ELIESER SOLIS Attending Unavailable ELIESER SOLIS Referring Unavailable TAI, [facility] Primary Care Unavailable Bird Lujan MD B Primary Care Provider Dr. Bird Lujan MD Primary Care Provider Tai DAIGLE, Dr. Pang Referring Provider [phone] Mitchell LANDSCAPE CREW MEMBER-C, Brenda Attending Provider Susan LANDSCAPE CREW MEMBER-C, Jeanna Attending Provider Suasn LANDSCAPE CREW MEMBER-C, Jeanna Referring Provider Bradley ANDERSON, Dr. Harrison Attending Provider Bradley ANDERSON, Dr. Harrison Referring Provider Dottie DAIGLE, Dr. Ballesteros Attending Provider Provider, Ed Physician Attending Provider Catina acuna Provider, Ed Physician Emergency Provider Catina Parisi DO, Dr. Anderson Attending Provider Isak ANDERSON, Dr. Anderson Emergency Provider [facility] LANDSCAPE CREW MEMBER-C, Mynor Barbosa Attending Provider Kayleigh Farnsworth Attending Provider Kayleigh Farnsworth Referring Provider Timothy DAIGLE, Dr. Oliveira Attending Provider Dottie DAIGLE, Dr. Ballesteros Referring Provider Dottie DAIGLE, Dr. Ballesteros Other Provider Kumar DAIGLE, Dr. Vaz Emergency Provider Micaela DAIGLE, Dr. Johnson Attending Provider Micaela DAIGLE, Dr. Johnson Admit Provider Micaela DAIGLE, Dr. Johnson Other Provider Bradley ANDERSON, Dr. Harrison Other Provider Pradeep DAIGLE, Dr. Cutler Attending Provider Pradeep DAIGLE, Dr. Cutler Other Provider [phone] José Miguel DAIGLE, Dr. Hendricks Other Provider Elham DAIGLE, Dr. Peña Other Provider Art DAIGLE, Dr. Nation Other Provider Dr. Terrance Alva DO Other Provider Juan Pablo DAIGLE, Dr. Jimmy Walton Other Provider [phone] Vargas DAIGLE, Dr. Garcia Other Provider [phone] Frannie DAIGLE, Dr. Dorado Other Provider Lauren DAIGLE, Dr. Stone Other Provider [phone] Choco DAIGLE, Dr. Burdick Other Provider Jeet DAIGLE, Dr. Jameson Other Provider [phone] Guilherme DAIGLE, Dr. Motta Other Provider Prema DAIGLE, Dr. Cadet Other Provider Lorenzo DAIGLE, Dr. Kim Other Provider Unavailabl mari Franco MD, Dr. Turner Other Provider [phone] Marquez DAIGLE, Dr. Awad Other Provider Yahir DAIGLE, Dr. Langston Other Provider [phone] Peter DAIGLE, Dr. Wang Other Provider Altagracia ANDERSON, Dr. Holguin Other Provider Adrienne DAIGLE, Dr. Michael Other Provider [phone] Shamika DAIGLE, Dr. Marcano Other Provider [phone] John Dash DO Other Provider Joaquin DAIGLE, Dr. Lemus Other Provider Donny DAIGLE, Dr. Champagne Other Provider Pradeep DAIGLE, Dr. Cutler Referring Provider Dr. Terrance Alva DO Attending Provider Dottie DAIGLE, Dr. Ballesteros Attending Provider Dr. Christy Huerta DO Referring Provider Tai DAIGLE, Dr. Pang Primary Care Provider Tai DAIGLE, Dr. Pang Referring Provider Susan LANDSCAPE CREW MEMBER-C, Jeanna Attending Provider Susan LANDSCAPE CREW MEMBER-C, Jeanna Referring Provider Mitchell LANDSCAPE CREW MEMBER-C, Brenda Attending Provider Davis LANDSCAPE CREW MEMBER, Jeanna Referring Unavailable Davis LANDSCAPE CREW MEMBER, Jeanna [facility]ending [facility]available Brenda Medrano Referring Unavailable Brenda Medrano Attending Unavailable [facility] Primary Care Unavailable Davis LANDSCAPE CREW MEMBER, Jeanna Attending Unavailable Davis LANDSCAPE CREW MEMBER, Jeanna Referring Unavailable [facility] Primary [facility] Unavailable Christy Huerta Consulting Unavailable Terrance Alva Attending Unavailable He Cat Referring Unavailable Alex Hinojosa Admitting Unavailable Alex Hinojosa Consulting Unavailable He Cat Consulting Unavailable [facility] Primary Care Unavailable Favian Sinclair Attending Unavailable DottieFavian orta Referring Unavailable Christy Huerta Attending Unavailable Christy Huerta Referring Unavailable [facility] Primary Care Unavailable Christy Huerta Attending Unavailable [facility] Primary Care Unavailable Favian Nicholas Attending Unavailable Danette Lani L Admitting Unavailable White Lani L Consulting Unavailable [facility] Primary Care Unavailable DonnellMarshal chadwick Consulting [...] Hines Consulting Unavailable Christy Huerta Consulting Unavailable [facility] Primary Care Unavailable Christy Huerta Attending Unavailable Christy Huerta Referring Unavailable He Cat Attending Unavailable [facility] Referring Unavailable Brenda Medrano Attending Unavailable [facility] Primary Care Unavailable [facility] Referring Unavailable Favian Sinclair Attending Unavailable [facility] Care Unavailable [facility] Primary Care Unavailable Favian Sinclair Referring Unavailable Favian Sinclair Consulting Unavailable Favian Sinclair Attending Unavailable Baldo Tripp Attending Unavailable Lani Samaniego Consulting Unavailable [facility] Care Unavailable Lani Samaniego Admitting Unavailable Mrashal Jacobo Consulting Unavailable Baldo Tripp Consulting Unavailable Kalia Baeza Attending Unavailable [facility] Care Unavailable [facility] Primary Care Unavailable Provider, Ed Physician Attending Unavailab [facility] Care Unavailable Kayleigh Payne Attending Unavailable Kayleigh Payne Referring Unavailable [facility] Care Unavailable Justin Parisi Attending [...] Unavailable Ranney, Christopher Primary Care Unavailable Christy Huetra Consulting Unavailable He Cat Attending Unavailable Alex Hinojosa Admitting Unavailable Alex Hinojosa Consulting Unavailable [facility] Unavailable Alex Hinojosa Attending Unavailable Susan LANDSCAPE CREW MEMBER, Jeanna Referring Unavailable Susan LANDSCAPE CREW MEMBER, Jeanna Attending Unavailable [facility] Primary Care Unavailable Favian Nicholas Referring Unavailable [...] Ventura Consulting Unavailable Ritesh Zayas Consulting Unavailable Kian Sinclair Consulting Unavailable Felipe Green Consulting Unavailable Fernanda Deleon Consulting Unavailable Allan Nuñez Consulting Unavailable Ihsan Hines Consulting Unavailable Favian Nicholas Consulting Unavailable Favian Nicholas Attending Unavailable Marlovanderwagen, Christmarco Referring Unavailable Du LANDSCAPE CREW MEMBER, Kena Attending Unavailable [facility], [facility] Primary Care Unavailable [facility], Christopher Referring Unavailable Viraj No Attending Unavailable [facility], [facility] Primary Care Unavailable Ranvanderwagen, Christopher Referring Unavailable Brenda Medrano Attending Unavailable [facility] Unavailable Ranvander[place], Christopher Referring Unavailable Kayleigh Payne Attending Unavailable [facility] Unavailable Tai, Christopher Referring Unavailable Brenda Medrano Attending Unavailable [facility] Unavailable Ranvanderwagen, Christopher Referring Unavailable [place] Unavailable Kayleigh Payne Attending Unavailable Ranney, Christopher Referring Unavailable [facility], [facility] Unavailable Susan JUÁRZE, Jeanna Attending Unavailable [facility] Primary Care Unavailable Christy Huerta Referring Unavailable Favian Sinclair Attending Unavailable Ranvanderwagen, Christopher Referring Unavailable [place] Unavailable Mynor Anthony NP Attending Unavailable [facility] Primary Care Unavailable Tee Aguirre Attending Unavailquinn guerra [facility] Primary Care Unavailable Favian Sinclair [facility] Unavailable Brenda Medrano Attending Unavailable Saroj Lemos Attending Unavailable [facility] Primary Care Unavailable Lani Samaniego Referring Unavailable [facility] Primary Care Unavailable Favian Sinclair Attending Unavailable [facility], [place] Referring Unavailable Kena Sandy NP Attending Unavailable [facility] Primary Care Unavailable Allergies Allergy Classification Reported Allergen(s) Allergy Type Date of Onset Reaction(s) Facility (3 sources) environmental [Other] Propensity to adverse reactions 9 [facility] Medications Current Medications Medication Drug Class(es) Dates Sig (Normalized) Sig (Original) [id number] 200 actuat albuterol 0.09 mg/actuat metered dose [...] 2018 1:49pm take 2 puff(s) by mo [facility] every six hours for cough albuterol 108 (90 Base) MCG/ACT inhaler inhale 2 puffs by mouth and INTO THE LUNGS every 6 hours if needed for cough Active PROAIR HFA 108 ( 90 Base) MCG/ACT AERS PRN ALBUTEROL SULFATE [id number] Alyssia Ibanez RN RN amLODIPine 10 mg [...] D3 1 000 UNIT CHEW Weekly CHOLECALCIFEROL [id number] Alyssia Ibanez RN RN Continuous Glucose Sensor (Dexcom G6 Sensor) [facility] (6 sources) Start: 07-22-2024 Continuous Glu cose Sensor (Dexcom G6 Sensor) [facility] 07/22/2024 Active Continuous Glucose Transmitter (Dexcom G6 transmitter) [facility] (6 sources) Start: 07-25-2024 Continuous Glu cose Transmitter (Dexcom G6 transmitter) [facility] 07/25/2024 Active 1 ml denosumab 60 mg/ml [...] mouth once daily. Active Flash Glucose Scanning [place] (Freestyle Eileen 2 [place]) [facility] (19 sources) Start: 11-20-2020 Flash Glucose Scanning [place] (Freestyle Eileen 2 [place]) [facility] Active 0 .ROUTE .MEDSUPPLY November 20, 2020 10:12am As directed Start: 11-20-2020 Flash Glucose Scanning [place] (Freestyle Eileen 2 [place]) [facility] Active 0 .ROUTE .MEDSUPPLY November 20, 2020 12:00am As directed Start: 11-20-2020 Flash Glucose Scanning [place] (Freestyle Eileen 2 [place]) [facility] Active 0 .ROUTE .MEDSUPPLY November 20, 2020 [...] 10-01-2023 End: 10-29-2023 Start: 10-01-2023 End: 10-29-2023 Segyjkjgpdy-Hzuudgkxr-Nversx er (Trelegy Ellipta) 200-62.5-25 mcg blister with device Discontinued 1 INH INHALATION DAILY 3 October 01, 2023 3:45pm October 29, 2023 4:14pm Start: 10-01-2023 End: 10-29-2023 Ujxlddtzgyq-Vuvpdbwjw-Klmoex er (Trelegy Ellipta) 200-62.5-25 mcg blister with device Discontinued 1 INH INHALATION DAILY 3 October 01, 2023 2:45pm October 29, 2023 3:14pm Start: 10-01-2023 Fluticasone-Um eclidin-Vilanter (Trelegy Ellipta) 200-62.5-25 mcg blister with device Active 1 INH INHALATION DAILY 3 October 01, 2023 2:45pm Start: 06-25-2023 End: 10-01-2023 Start: 06-25-2023 End: 10-01-2023 Oocfimcswts-Vjbmrcavn-Dsaawj er (Trelegy Ellipta) 200-62.5-25 mcg blister with device Discontinued 1 INH INHALATION DAILY 60 June 25, 2023 12:00am October 01, 2023 3:46pm Start: 06-25-2023 End: 10-01-2023 Swkqqvfsink-Rxqslsgjf-Ednuyj er (Trelegy Ellipta) 200-62.5-25 mcg blister with [...] End: 08-04-2024 Insulin Disposable Pump (Omnipod 5 [id number] Intro Gen 5) kit (3 sources) Start: 12-03-2023 Insulin Disposable Pump (Omnipod 5 [id number] Intro Gen 5) kit 12/03/2023 Active Insulin Disposable Pump (Omnipod 5 [id number] Pods Gen 5) misc (3 sources) Start: 07-15-2024 Insulin Disposable Pump (Omnipod 5 HrfP1H5 Pods Gen 5) misc 07/15/2024 Active insulin [...] 21 units sq q hs INSULIN GLARGINE [id number] Alyssia Ibanez RN RN Start: 01-21-2015 End: [...] 20 units sq q hs INSULIN GLARGINE [id number] Qi Dunham LPN Insulin Pump Cart,Auto,Bt-Cntr (Omnipod [...] TABS One tablet by mouth daily SIMVASTATIN [id number] Alyssia Ibanez RN RN Trelegy Ellipta 200-62.5-25 [...] pain and fever 20 ml albumin human, custodial 250 mg/ml injection (12 sources) Human Serum [...] AUGMENTIN 875-125 MG TABS bid AMOXICILLIN-POT CLAVULANATE [id number] Edie Kearney MD Start: 12-30-2012 AUGMENTIN 875- 125 MG TABS bid AMOXICILLIN-POT CLAVULANATE [id number] Edie Kearney MD take 10 mL by mouth every eight hours AUGMENTIN 250-62.5 MG/5ML SUSR 10 ml po q 8 hrs AMOXICILLIN-POT CLAVULANATE [id number] Qi Dunham LPN End: 12-30-2012 take 10 mL by mouth every eight hours AUGMENTIN 250-62.5 MG/5ML SUSR 10 ml po q 8 hrs AMOXICILLIN-POT CLAVULANATE [id number] Edie Kearney MD ASPIRIN TBEC (2 sources) take 1 tablet by mouth once daily ASPIR-81 TBEC One tablet by mouth daily ASPIRIN TBEC [id number] Qi Dunham [employer] SUPERVISOR atorvastatin 20 mg oral tablet (2 sources) [...] Start: 07-04-2022 take 1 capsule by mo [facility] once daily B-Complex With Vitamin C (Super [...] SUSR 500mg po q 12 hrs CIPROFLOXACIN 23879654430 Qi Dunham LPN clopidogrel 75 mg oral [...] by mouth twice daily prn DOCUSATE SODIUM [id number] Alyssia Ibanez RN RN docusate sodium 50 mg / sennosides, custodial 8.6 mg oral tablet (2 sources) Start: 08-17-2024 End: 08-24-2024 doxycycline hyclate 100 mg oral tablet (20 sources) Tetracycline- class Drug Start: 06-27-2021 End: 02-21-2022 Start: 01-21-2013 End: 01-31-2013 take 1 tablet by mouth every twelve hours DOXYCYCLINE HYCLATE 100 MG TABS 100 mg po every 12 hrs x 10 d DOXYCYCLINE HYCLATE [id number] Edie Kearney MD ergocalciferol 1.25 mg oral capsule (20 sources) Provitamin D2 Compound Start: 06-21-2018 End: 07-14-2023 escitalopram 20 mg oral tabl et (20 sources) Serotonin Reuptake Inhibitor Start: 06-21-2018 End: 11-19-2019 take 1 tablet by mouth once alejandra y ESCITALOPRAM OXALATE 10 MG TABS One tablet by mouth daily ESCITALOPRAM OXALATE [id number] Alyssia Ibanez RN RN ferrous sulfate 325 [...] 06, 2023 12:00am April 09, 2023 2:34pm Jwdsmtisecg-Ftlcuabcw-Feyvwj er (20 sources) Anticholinergic, Corticosteroid, beta2-Adrenergic Agonist Start: 02-17-2023 End: 06-25-2023 Start: 02-17-2023 End: 06-25-2023 Ulxpojyoaji-Svmcafywe-Jamjcr er (Trelegy Ellipta) 100-62.5-25 mcg blister with device Discontinued 1 INH INHALATION daily 60 February 17, 2023 9:13am June 25, 2023 8:59am administer at approximately the same time(s) each day Start: 02-17-2023 End: 06-25-2023 Tggwkcladgm-Ufztcuccl-Nhpzxu er (Trelegy Ellipta) 100-62.5-25 mcg blister with [...] 02-21-2022 End: 02-17-2023 Start: 02-21-2022 End: 02-17-2023 Jcvjiwungoo-Oyqacklwk-Exartx er (Trelegy Ellipta) 100-62.5-25 mcg blister with device Discontinued 1 INH INHALATION daily 60 February 21, 2022 12:21pm February 17, 2023 8:13am administer at approximately the same time(s) each day Start: 02-21-2022 End: 02-17-2023 Kkbjtxagniv-Qxawwuexk-Pljefn er (Trelegy Ellipta) 100-62.5-25 mcg blister with [...] 01-16-2022 End: 02-21-2022 Start: 01-16-2022 End: 02-21-2022 Rvupsldhvid-Eabgccfms-Pllrvf er (Trelegy Ellipta) 100-62.5-25 mcg blister with device Discontinued 1 INH INHALATION daily January 16, 2022 10:47am February 21, 2022 12:22pm administer at approximately the same time(s) each day Start: 01-16-2022 End: 02-21-2022 Oteldjjizcs-Lqndxxxfy-Papicj er (Trelegy Ellipta) 100-62.5-25 mcg blister with [...] 09-10-2021 End: 01-16-2022 Start: 09-10-2021 End: 01-16-2022 Ackuwwthlmp-Tjqycmqyy-Whbwjh er (Trelegy Ellipta) 100-62.5-25 mcg blister with device Discontinued 1 INH INHALATION daily 60 September 10, 2021 1:48pm January 16, 2022 10:48am administer at approximately the same time(s) each day Start: 09-10-2021 End: 01-16-2022 Yppfyhgurse-Mknofgarv-Lyifkn er (Trelegy Ellipta) 100-62.5-25 mcg blister with device Discontinued 1 INH INHALATION daily 60 September 10, 2021 2:48pm January 16, 2022 11:48am administer at approximately the same time(s) each day Start: 04-03-2021 End: 09-10-2021 Start: 04-03-2021 End: 09-10-2021 Hjwyuwyfpgu-Vrhnxookv-Snduyx er (Trelegy Ellipta) 100-62.5-25 mcg blister with device Discontinued 1 INH INHALATION daily 60 April 03, 2021 9:55am September 10, 2021 1:49pm administer at approximately the same time(s) each day Start: 04-03-2021 End: 09-10-2021 Cinidoweyvo-Beehfxwnu-Fatlon er (Trelegy Ellipta) 100-62.5-25 mcg blister with device Discontinued 1 INH INHALATION daily 60 April 03, 2021 10:55am September 10, 2021 2:49pm administer at approximately the same time(s) each day Start: 09-12-2020 End: 04-03-2021 Sfjrmviofob-Gsiavyfvx-Wwtuuo er (Trelegy Ellipta) 100-62.5-25 mcg blister with device Discontinued 1 INH INHALATION daily 60 September 12, 2020 9:59am April 03, 2021 10:55am administer at approximately the same time(s) each day Start: 09-12-2020 End: 04-03-2021 Start: 09-12-2020 End: 04-03-2021 Kdifoptxejv-Pyolwapuv-Cdjoqj er (Trelegy Ellipta) 100-62.5-25 mcg blister with device Discontinued 1 INH INHALATION daily September 12, 2020 12:00am April 03, 2021 9:55am administer at approximately the same time(s) each day Start: 09-12-2020 End: 04-03-2021 Lrxkoiqgvjs-Jpfpibotn-Diphct er (Trelegy Ellipta) 100-62.5-25 mcg blister with [...] in case of hypoglycemia emergency GLUCAGON (RDNA) [id number] Alyssia Ibanez RN RN 150 ml glucose [...] po q 4 hrs prn HYDROMORPHONE HCL [id number] Qi Dunham LPN ibuprofen 200 mg oral tablet (8 sources) Nonsteroidal Anti-inflammatory Drug End: 12-16-2012 take 1 tablet by mouth every six hours as needed MOTRIN IB TABS 800 mg by mouth q 6 hrs prn IBUPROFEN TABS [id number] Qi Dunham LPN End: 12-30-2012 ADVIL 200 MG CAPS q 4 hrs as needed IBUPROFEN [id number] Edie Kearney MD Insulin Basal Pump (Pt's [...] SOLN 21 units at bedtime INSULIN DETEMIR [id number] Alyssia Ibanez RN RN insulin isophane, human [...] a day with meals INSULIN LISPRO (HUMAN) 64483608682 Qi Dunham [employer]OR End: 12-30-2012 take 5 [IU] by subcutaneous injection three times daily at mealtime HUMALOG 100 UNIT/ML SOLN 5 units sq three times a day with meals INSULIN LISPRO (HUMAN) [id number] Edie Kearney MD INSULIN SYRINGE-NEEDLE U-100 (2 sources) BD SAFETYGLIDE I NSULIN SYRINGE 31G X 15/64 0.3 ML MISC INSULIN SYRINGE-NEEDLE U-100 [id number] Alyssia Ibanez RN RN insulin aspart, human [...] NOVOLOG 100 UNIT /ML SOLN INSULIN ASPART [id number] Alyssia Ibanez RN RN insulin, regular, human [...] by mouth daily for 5 days LEVOFLOXACIN 45365677511 Qi Dunham LPN lisinopril 2.5 mg oral [...] Nitrofuran Antibacterial Start: 08-09-2024 End: 08-24-2024 nystatin 778607 unt/ml oral suspension (20 sources) Polyene Antifungal Start: 06-23-2018 End: 12-31-2018 ondansetron 8 mg oral tablet (20 sources) Serotonin-3 Receptor Antagonist Start: 08-20-2016 End: 01-29-2018 ZOFRAN 8 MG TABS PRN ONDANSETRON HCL 10811372336 Alyssia Ibanez RN RN oxyCODONE hydrochloride 5 [...] 18 MCG CAPS Daily TIOTROPIUM BROMIDE MONOHYDRATE [id number] Alyssia Ibanez RN RN varenicline 1 mg oral tablet (4 sources) Partial Cholinergic Nicotinic Agonist End: 01-21-2013 take 2 tablets by mouth once daily CHANTIX 1 MG TABS Two tablets by mouth daily VARENICLINE TARTRATE [id number] Edie Kearney MD (6 sources) Start: 08-22-2024 [...] Coronary atherosclerosis; Translations: [Atherosclerotic heart disease of [place] coronary artery without angina pectoris] Onset: 08-12-2024 [...] 06-21-2018 Episodic Other gastrointestinal disorders (20 sources) [place]'s sign; Translations: [Other specified symptoms and signs [...] loss of consciousness status unknown, initial encounter ([facility]); Translations: [Traumatic subdural hemorrhage with loss of consciousness status unknown, initial encounter [facility] [facility] Onset: 07-26-2024 Unclassified (3 sources) PMH - [...] loss of consciousness status unknown, initial encounter ([facility]); Translations: [Traumatic subdural hemorrhage with loss of consciousness status unknown, initial encounter ([facility])] Onset: 4 Results Test Name Value Interpretation Reference Range Facility Surgery Visit Reporton 03-22 Surgery Visit Report Normal [facility] Endocrinology Visit Reporton 01-27-2025 Endocrinology Visit Report Normal [facility] Chest without Contraston Chest without Contrast Normal [facility] Surgery Visit Reporton 01-11 Surgery Visit Report Normal [facility] Basic Metabolic Profile (BMP )on 01-07-2025 BUN Normal - [facility] Comment on above: Result Comment: Canc elled via OM: Order cancelled - Patient discharged Performed By: #### L 100.0100, L500.2500 ####[facility] [address] [place], [address] BUN/CRE Normal 10-20 [facility] Comment on above: Result Comment: Canc elled via OM: Order cancelled - Patient discharged Performed By: #### L 100.0100, L500.2500 ####[facility] [address] [place], [address] Calcium Normal 7.6-11.0 [facility] Comment on above: Result Comment: Canc elled via OM: Order cancelled - Patient discharged Performed By: #### L 100.0100, L500.2500 ####[facility] [address] [place], [address] CL Normal 98-108 [facility] Comment on above: Result Comment: Canc elled via OM: Order cancelled - Patient discharged Performed By: #### L 100.0100, L500.2500 ####[facility] [address] [place], [address] CO2 Normal 21.0-32.0 [facility] Comment on above: Result Comment: Canc elled via OM: Order cancelled - Patient discharged Performed By: #### L 100.0100, L500.2500 ####[facility] [address] [place], [address] CREAT,SERUM Normal 0.70-1.20 [facility] Comment on above: Result Comment: Canc elled via OM: Order cancelled - Patient discharged Performed By: #### L 100.0100, L500.2500 ####[facility] [address] [place], [address] eGFR Normal >60 [facility] Comment on above: Result Comment: Canc elled via OM: Order cancelled - Patient discharged Performed By: #### L 100.0100, L500.2500 ####[facility] [address] [place], [address] GAP Normal 5-15 [facility] Comment on above: Result Comment: Canc elled via OM: Order cancelled - Patient discharged Performed By: #### L 100.0100, L500.2500 ####[facility] [address] [place], [address] GLU Normal 70-99 [facility] Comment on above: Result Comment: Canc elled via OM: Order cancelled - Patient discharged Performed By: #### L 100.0100, L500.2500 ####[facility] [address] [place], [address] Potassium Normal 3.3-5.1 [facility] Comment on above: Result Comment: Canc elled via OM: Order cancelled - Patient discharged Performed By: #### L 100.0100, L500.2500 ####[facility] [address] [place], [address] Basic Metabolic Profile (BMP) Normal 133-145 [facility] Comment on above: Result Comment: Canc elled via OM: Order cancelled - Patient discharged Performed By: #### L 100.0100, L500.2500 ####[facility] [address] [place], [address] CBC W/Diff, Automatedon 03-0 7-2024 Absolute Neut Normal 2.0-7.7 [facility] Comment on above: Result Comment: Canc elled via OM: Order cancelled - Patient discharged Performed By: #### L 100.0100, L500.2500 ####[facility] [address] [place], [address] HCT Normal 37-47 [facility] Comment on above: Result Comment: Canc elled via OM: Order cancelled - Patient discharged Performed By: #### L 100.0100, L500.2500 ####[facility] [address] [place], [address] HGB Normal 12.0-15.0 [facility] Comment on above: Result Comment: Canc elled via OM: Order cancelled - Patient discharged Performed By: #### L 100.0100, L500.2500 ####[facility] [address] [place], [address] MCH Normal 27.0-32.0 [facility] Comment on above: Result Comment: Canc elled via OM: Order cancelled - Patient discharged Performed By: #### L 100.0100, L500.2500 ####[facility] [address] [place], [address] MCHC Normal 32-36 [facility] Comment on above: Result Comment: Canc elled via OM: Order cancelled - Patient discharged Performed By: #### L 100.0100, L500.2500 ####[facility] [address] [place], [address] MCV Normal 81-99 [facility] Comment on above: Result Comment: Canc elled via OM: Order cancelled - Patient discharged Performed By: #### L 100.0100, L500.2500 ####[facility] [address] [place], [address] NEUT% Normal 47-70 [facility] Comment on above: Result Comment: Canc elled via OM: Order cancelled - Patient discharged Performed By: #### L 100.0100, L500.2500 ####[facility] [address] [place], [address] PLT Normal 150-450 [facility] Comment on above: Result Comment: Canc elled via OM: Order cancelled - Patient discharged Performed By: #### L 100.0100, L500.2500 ####[facility] [address] [place], [address] RBC Normal 4.2-5.4 [facility] Comment on above: Result Comment: Canc elled via OM: Order cancelled - Patient discharged Performed By: #### L 100.0100, L500.2500 ####[facility] [address] [place], [address] RDW CV Normal 11.6-14.6 [facility] Comment on above: Result Comment: Canc elled via OM: Order cancelled - Patient discharged Performed By: #### L 100.0100, L500.2500 ####[facility] [address] [place], [address] RDW SD Normal 35.1-43.9 [facility] Comment on above: Result Comment: Canc elled via OM: Order cancelled - Patient discharged Performed By: #### L 100.0100, L500.2500 ####[facility] [address] [place], [address] WBC Normal 4.4-11.0 [facility] Comment on above: Result Comment: Canc elled via OM: Order cancelled - Patient discharged Performed By: #### L 100.0100, L500.2500 ####[facility] [address] [place], [address] Absolute lymphocyte countOrd ered By: He Cat on 01-06-2025 Lymphocytes Auto (Unsp spec) [#/Vol] 0.66 10*3/uL Low 0.83-4.51 [facility] Absolute neutrophil countOrd ered By: He Cat on 01-06-2025 Absolute neutrophil count 9.7 X10^3/uL High 2.0-7.7 [facility] Anion gap [Moles/Vol]Ordered By: He Cat on 01-06-2025 Anion gap in Serum or Plasma 12 5-15 [facility] Anion gap in Serum or Plasma Ordered By: He Cat on 01-06-2025 Anion gap [Moles/Vol] 12 mmol/L 5-15 [facility] Automated lymphocyte count a s percentage of total leukocytesOrdered By: He Cat on 01-06-2025 Lymphocytes/100 WBC Auto (Unsp spec) 6.0 % Low 19-41 [facility] BUN/creatinine ratioOrdered By: He Cat on 01-06-2025 Urea nitrogen/Creatinine [Mass ratio] 13.0 mg/mg - [facility] BUN/creatinine ratio 13.0 RATIO - [facility] Basic Metabolic Profile (BMP )on 01-06-2025 BUN/CRE 13.0 RATIO Normal - [facility] Comment on above: Performed By: #### L 500.2500, L100.0100 ####[facility] [address] [place], [address] Calcium [Mass/Vol] 8.9 mg/dL Normal 7.6-11.0 [facility] Comment on above: Performed By: #### L 500.2500, L100.0100 ####[facility] [address] [place], [address] Chloride [Moles/Vol] 101 mmol/L Normal 98-108 [facility] Comment on above: Performed By: #### L 500.2500, L100.0100 ####[facility] [address] [place], [address] CO2 [Moles/Vol] 21.1 mmol/L Normal 21.0-32.0 [facility] Comment on above: Performed By: #### L 500.2500, L100.0100 ####[facility] [address] [place], [address] Creatinine [Mass/Vol] 3.23 mg/dL High 0.70-1.20 [facility] Comment on above: Performed By: #### L 500.2500, L100.0100 ####[facility] [address] [place], [address] ECRCL 12.75 ml/min Low 50-250 [facility] Comment on above: Performed By: #### L 500.2500, L100.0100 ####[facility] [address] [place], [address] GAP 12 Normal 5-15 [facility] Comment on above: Performed By: #### L 500.2500, L100.0100 ####[facility] [address] [place], [address] GFR/1.73 sq M.predicted among non-blacks MDRD (S/P/Bld) [Vol rate/Area] 15 mL/min/{1.73_m2} Low >60 [facility] Comment on above: Result Comment: mL/m in/1.73m2 CKD-EPI Creatinine Equation (2020) Performed By: #### L 500.2500, L100.0100 ####[facility] [address] [place], [address] Glucose [Mass/Vol] 337 mg/dL High 70-99 [facility] Comment on above: Performed By: #### L 500.2500, L100.0100 ####[facility] [address] [place], [address] Potassium [Moles/Vol] 5.6 mmol/L High 3.3-5.1 [facility] Comment on above: Performed By: #### L 500.2500, L100.0100 ####[facility] [address] [place], [address] Sodium [Moles/Vol] 134 mmol/L Normal 133-145 [facility] Comment on above: Performed By: #### L 500.2500, L100.0100 ####[facility] [address] [place], [address] Urea nitrogen [Mass/Vol] 42 mg/dL High 4-19 [facility] Comment on above: Performed By: #### L 500.2500, L100.0100 ####[facility] [address] [place], [address] Basophil percentageOrdered B y: He Cat on 01-06-2025 Basophils/100 WBC (Bld) 0.1 % 0-1 [facility] Bedside Glucoseon 01-06-2025 FINGERSTICK GLU 374 mg/dL High 74-106 [facility] Comment on above: Result Comment: SHELLY GEMENT OF PATIENT CARE PER NURSING PROTOCOL Performed By: #### L 501.080 ####[facility] [address] [place], [address] FINGERSTICK GLU 309 mg/dL High 74-106 [facility] Comment on above: Result Comment: SHELLY GEMENT OF PATIENT CARE PER NURSING PROTOCOL Performed By: #### L 501.080 ####[facility] [address] [place], [address] CBC W/Diff, Automatedon Absolute Lymph 0.66 X10 3/uL Low 0.83-4.51 [facility] Comment on above: Performed By: #### L 500.2500, L100.0100 ####[facility] [address] [place], [address] Absolute Neut 9.7 X10 3/uL High 2.0-7.7 [facility] Comment on above: Performed By: #### L 500.2500, L100.0100 ####[facility] [address] [place], [address] Basophils/100 WBC (Bld) 0.1 % Normal 0-1 [facility] Comment on above: Performed By: #### L 500.2500, L100.0100 ####[facility] [address] [place], [address] Eosinophils/100 WBC (Bld) 0.1 % Normal 0-5 [facility] Comment on above: Performed By: #### L 500.2500, L100.0100 ####[facility] [address] [place], [address] Erythrocyte distribution width (RBC) [Ratio] 13.0 % Normal 11.6-14.6 [facility] Comment on above: Performed By: #### L 500.2500, L100.0100 ####[facility] [address] [place], [address] Hematocrit (Bld) [Volume fraction] 28.8 % Low 37-47 [facility] Comment on above: Performed By: #### L 500.2500, L100.0100 ####[facility] [address] [place], [address] Hemoglobin (Bld) [Mass/Vol] 9.1 g/dL Low 12.0-15.0 [facility] Comment on above: Performed By: #### L 500.2500, L100.0100 ####[facility] [address] [place], [address] IG% 1.000 High 0.0-0.9 [facility] Comment on above: Result Comment: IG% - Immature Granulocytes (promyelocytes, myelocytes andmetamyelocytes) > 1% indicates that a LEFT SHIFT is Present. Performed By: #### L 500.2500, L100.0100 ####[facility] [address] [place], [address] Lymphocytes/100 WBC (Bld) 6.0 % Low 19-41 [facility] Comment on above: Performed By: #### L 500.2500, L100.0100 ####[facility] [address] [place], [address] MCH (RBC) [Entitic mass] 30.4 pg Normal 27.0-32.0 [facility] Comment on above: Performed By: #### L 500.2500, L100.0100 ####[facility] [address] [place], [address] MCHC (RBC) [Mass/Vol] 31.6 g/dL Low 32-36 [facility] Comment on above: Performed By: #### L 500.2500, L100.0100 ####[facility] [address] [place], [address] MCV (RBC) [Entitic vol] 96.3 fL Normal 81-99 [facility] Comment on above: Performed By: #### L 500.2500, L100.0100 ####[facility] [address] [place], [address] Monocytes/100 WBC (Bld) 4.8 % Normal 0-10 [facility] Comment on above: Performed By: #### L 500.2500, L100.0100 ####[facility] [address] [place], [address] Neutrophils/100 WBC (Bld) 88.0 % High 47-70 [facility] Comment on above: Performed By: #### L 500.2500, L100.0100 ####[facility] [address] [place], [address] Nucleated RBC (Bld) [#/Vol] 0 10*3/uL Normal 0-5 [facility] Comment on above: Performed By: #### L 500.2500, L100.0100 ####[facility] [address] [place], [address] Platelet mean volume (Bld) [Entitic vol] 9.8 fL Normal 6.2-12.0 [facility] Comment on above: Performed By: #### L 500.2500, L100.0100 ####[facility] [address] [place], [address] Platelets (Bld) [#/Vol] 229 10*3/uL Normal 150-450 [facility] Comment on above: Performed By: #### L 500.2500, L100.0100 ####[facility] [address] [place], [address] RBC (Bld) [#/Vol] 2.99 10*6/uL Low 4.2-5.4 [facility] Comment on above: Performed By: #### L 500.2500, L100.0100 ####[facility] [address] [place], [address] RDW SD 45.0 fl High 35.1-43.9 [facility] Comment on above: Performed By: #### L 500.2500, L100.0100 ####[facility] [address] [place], [address] WBC (Bld) [#/Vol] 11.0 10*3/uL Normal 4.4-11.0 [facility] Comment on above: Performed By: #### L 500.2500, L100.0100 ####[facility] [address] [place], [address] Calcium [Mass/Vol]Ordered By : He Cat on 01-06-2025 Serum or plasma calcium measurement (mass/volume) 8.9 mg/dL 7.6-11.0 [facility] Carbon dioxide, total [Moles /volume] in Central venous bloodOrdered By: He Cat on 01-06-2025 CO2 [Moles/Vol] 21.1 mmol/L 21.0-32.0 [facility] Carbon dioxide, total [Moles/volume] in Central venous blood 21.1 mmol/L 21.0-32.0 [facility] Chloride assayOrdered By: Sarbjit Cat on 01-06-2025 Chloride [Moles/Vol] 101 mmol/L 98-108 [facility] Chloride assay 101 mmol/L 98-108 [facility] Creatinine [Mass/Vol]Ordered By: He Cat on 01-06-2025 Serum creatinine measurement (mass/volume) 3.23 mg/dL High 0.70-1.20 [facility] Discharge Instructionon Discharge Instruction Normal [facility] Eosinophil percentageOrdered By: He Cat on 01-06-2025 Eosinophils/100 WBC (Bld) 0.1 % 0-5 [facility] Eosinophil percentage 0.1 % 0-1 [facility] Erythrocyte distribution wid th (RBC) [Entitic vol]Ordered By: He Cat on 01-06-2025 Erythrocyte distribution width standard deviation 45.0 fl High 35.1-43.9 [facility] Erythrocyte distribution wid th (RBC) [Ratio]Ordered By: He Cat on 01-06-2025 Erythrocyte distribution width ratio 13.0 % 11.6-14.6 [facility] Erythrocyte distribution wid th ratioOrdered By: He Cat on 01-06-2025 Erythrocyte distribution width (RBC) [Ratio] 13.0 % 11.6-14.6 [facility] Erythrocyte distribution wid th standard deviationOrdered By: He Cat on 01-06-2025 Erythrocyte distribution width (RBC) [Ratio] 45.0 fl High 35.1-43.9 [facility] Estimation of creatinine abdulkadir aranceOrdered By: He Cat on 01-06-2025 Estimation of creatinine clearance 12.75 ml/min Low 50-250 [facility] GFR/1.73 sq M.predicted kris g non-blacks MDRD (S/P/Bld) [Vol rate/Area]Ordered By: He Cat on 01-06-2025 Glomerular filtration rate (GFR) estimation/1.73 sq m using serum, plasma, or whole b 15 Low >60 [facility] Glomerular filtration rate ( GFR) estimation/1.73 sq m using serum, plasma, or whole bOrdered By: He Cat on 01-06-2025 GFR/1.73 sq M.predicted among non-blacks MDRD (S/P/Bld) [Vol rate/Area] 15 mL/min/{1.73_m2} Low >60 [facility] Glucose [Mass/Vol]Ordered By : He Cat on 01-06-2025 Serum glucose measurement (mass/volume) 337 mg/dL High 70-99 [facility] Glucose measurement at bedsi deOrdered By: He Cat on 01-06-2025 Glucose [Mass/Vol] 374 mg/dL High 74-106 [facility] Glucose measurement at bedside 374 mg/dL High 74-106 [facility] Hematocrit Auto (Bld) [Volum e fraction]Ordered By: He Cat on 01-06-2025 Hematocrit (Bld) [Volume fraction] 28.8 % Low 37-47 [facility] Automated blood hematocrit (percentage) 28.8 % Low 37-47 [facility] Hemoglobin measurementOrdere d By: He Cat on 01-06-2025 Hemoglobin (Bld) [Mass/Vol] 9.1 g/dL Low 12.0-15.0 [facility] Hemoglobin measurement 9.1 g/dL Low 12.0-15.0 [facility] Immature granulocytes/100 WB C Auto (Bld)Ordered By: He Cat on 01-06-2025 Immature granulocytes/100 WBC (Bld) 1.000 % High 0.0-0.9 [facility] Automated immature granulocyte percentage 1.000 % High 0.0-0.9 [facility] Lymphocytes Auto (Unsp spec) [#/Vol]Ordered By: He Cat on 01-06-2025 Absolute lymphocyte count 0.66 X10^3/uL Low 0.83-4.51 [facility] Lymphocytes/100 WBC Auto (Un sp spec)Ordered By: He Cat on 01-06-2025 Automated lymphocyte count as percentage of total leukocytes 6.0 % Low 19-41 [facility] MCV (RBC) [Entitic vol]Order ed By: He Cat on 01-06-2025 MCV (mean corpuscular volume) determination 96.3 fL 81-99 [facility] MCV (mean corpuscular volume ) determinationOrdered By: He Cat on 01-06-2025 MCV (RBC) [Entitic vol] 96.3 fL 81-99 [facility] Mean corpuscular hemoglobin (MCH) determinationOrdered By: He Cat on 01-06-2025 MCH (RBC) [Entitic mass] 30.4 pg 27.0-32.0 [facility] Mean corpuscular hemoglobin (MCH) determination 30.4 pg 27.0-32.0 [facility] Mean corpuscular hemoglobin concentration (MCHC) determinationOrdered By: He Cat on 01-06-2025 Mean corpuscular hemoglobin concentration (MCHC) determination 31.6 g/dL Low 32-36 [facility] Mean platelet volume determi nationOrdered By: He Cat on 01-06-2025 Mean platelet volume determination 9.8 fl 6.2-12.0 [facility] Monocyte percentageOrdered B y: He Cat on 01-06-2025 Monocytes/100 WBC (Bld) 4.8 % 0-10 [facility] Monocyte percentage 4.8 % 0-10 [facility] Neutrophil percentageOrdered By: He Cat on 01-06-2025 Neutrophils/100 WBC (Bld) 88.0 % High 47-70 [facility] Neutrophil percentage 88.0 % High 47-70 [facility] Nucleated red blood cell per centageOrdered By: He Cat on 01-06-2025 Nucleated red blood cell percentage 0 % 0-5 [facility] Platelet countOrdered By: Sarbjit Cat on 01-06-2025 Platelets (Bld) [#/Vol] 229 10*3/uL 150-450 [facility] Platelet count 229 K/mm3 150-450 [facility] Potassium (Unsp spec) [Mass/ Vol]Ordered By: He Cat on 01-06-2025 Potassium measurement (mass/volume) 5.6 mmol/L High 3.3-5.1 [facility] Potassium measurement (mass/ volume)Ordered By: He Cat on 01-06-2025 Potassium (Unsp spec) [Mass/Vol] 5.6 mmol/L High 3.3-5.1 [facility] RBC Auto (Bld) [#/Vol]Ordere d By: He Cat on 01-06-2025 RBC (Bld) [#/Vol] 2.99 10*6/uL Low 4.2-5.4 [facility] Automated blood erythrocyte count 2.99 M/mm3 Low 4.2-5.4 [facility] Serum creatinine measurement (mass/volume)Ordered By: He Cat on 01-06-2025 Creatinine [Mass/Vol] 3.23 mg/dL High 0.70-1.20 [facility] Serum glucose measurement (m ass/volume)Ordered By: He Cat on 01-06-2025 Glucose [Mass/Vol] 337 mg/dL High 70-99 [facility] Serum or plasma calcium lesly urement (mass/volume)Ordered By: He Cat on 01-06-2025 Calcium [Mass/Vol] 8.9 mg/dL 7.6-11.0 [facility] Serum or plasma urea nitroge n measurement (mass/volume)Ordered By: He Cat on 01-06-2025 Urea nitrogen [Mass/Vol] 42 mg/dL High 02-19 [facility] Sodium levelOrdered By: Samantha Cat on 01-06-2025 Sodium [Moles/Vol] 134 mmol/L 133-145 [facility] Sodium level 134 mmol/L 133-145 [facility] Urea nitrogen [Mass/Vol]Orde red By: He Cat on 01-06-2025 Serum or plasma urea nitrogen measurement (mass/volume) 42 mg/dL High 02-19 [facility] White blood cell (WBC) count Ordered By: He Cat on 01-06-2025 WBC (Bld) [#/Vol] 11.0 10*3/uL 4.4-11.0 [facility] White blood cell (WBC) count 11.0 K/mm3 4.4-11.0 [facility] Albumin [Mass/Vol]Ordered By : Christy Huerta on 01-05-2025 Serum or plasma albumin measurement (mass/volume) 3.4 g/dL 3.4-4.8 [facility] Arterial patency Wrist arter y --pre arterial punctureOrdered By: He Cat on 01-05-2025 Assessment of wrist artery patency prior to arterial puncture Positive [facility] Assessment of wrist artery p atency prior to arterial punctureOrdered By: He Cat on 01-05-2025 Arterial patency Wrist artery --pre arterial puncture Positive [facility] Base excess Calc (BldV) [Mol es/Vol]Ordered By: He Cat on 01-05-2025 Blood base excess determination -1 mmol/L -2-2 [facility] Bedside Glucoseon 01-05-2025 FINGERSTICK GLU 338 mg/dL High 74-106 [facility] Comment on above: Result Comment: SHELLY ENGEL OF PATIENT CARE PER NURSING PROTOCOL Performed By: #### L 501.512 ####[facility] [address] [place], [address] FINGERSTICK GLU 292 mg/dL High 74-106 [facility] Comment on above: Result Comment: SHELLY GEMENT OF PATIENT CARE PER NURSING PROTOCOL Performed By: #### L 501.080 ####[facility] [address] [place], [address] FINGERSTICK GLU 419 mg/dL High 74-106 [facility] Comment on above: Result Comment: SHELLY GEMENT OF PATIENT CARE PER NURSING PROTOCOL Performed By: #### L 501.080 ####[facility] [address] [place], [address] FINGERSTICK GLU 286 mg/dL High 74-106 [facility] Comment on above: Result Comment: SHELLY GEMENT OF PATIENT CARE PER NURSING PROTOCOL Performed By: #### L 501.080 ####[facility] [address] [place], [address] Blood Gases by [facility] 025 TINY TEST Positive Normal [facility] Comment on above: Performed By: #### L 9000.0800 ####[facility] [address] [place], [address] Base excess Calc (Bld) [Moles/Vol] -1 mmol/L Normal -2 to +2 [facility] Comment on above: Performed By: #### L 9000.0800 ####[facility] [address] [place], [address] Blood Gas Type ART Normal [facility] Comment on above: Performed By: #### L 9000.0800 ####[facility] [address] [place], [address] Comment Normal [facility] Comment on above: Result Comment: Bipa p settings of IPAP 18, EPAP 8, fio2 30 % Performed By: #### L 9000.0800 ####[facility] [address] [place], [address] FI02 30.0 Normal [facility] Comment on above: Performed By: #### L 8999.0800 ####[facility] [address] [place], [address] Mode Not entered Normal [facility] Comment on above: Performed By: #### L 8999.0800 ####[facility] [address] [place], [address] O2 Delivery Dev BiPAP Normal [facility] Comment on above: Performed By: #### L 8999.0800 ####[facility] [address] [place], [address] pCO2 55.0 mmHg High 35-45 [facility] Comment on above: Performed By: #### L 8999.0800 ####[facility] [address] [place], [address] pH (Bld) 7.28 [pH] Low 7.35-7.45 [facility] Comment on above: Performed By: #### L 8999.0800 ####[facility] [address] [place], [address] PO2 87 mmHG Normal 75-100 [facility] Comment on above: Performed By: #### L 8999.0800 ####[facility] [address] [place], [address] SITE L Radial Normal [facility] Comment on above: Performed By: #### L 8999.0800 ####[facility] [address] [place], [address] SO2 95 Normal 95-99 [facility] Comment on above: Performed By: #### L 8999.0800 ####[facility] [address] [place], [address] Blood base excess determinat ionOrdered By: He Cat on 01-05-2025 Base excess Calc (BldV) [Moles/Vol] -1 mmol/L -2-2 [facility] Blood bicarbonate measuremen tOrdered By: He Cat on 01-05-2025 HCO3 (Bld) [Moles/Vol] 25.6 mmol/L Normal - [facility] Comment on above: Performed By: #### L 9000.0800 ####[facility] [address] [place], [address] Blood bicarbonate measurement 25.6 mmol/L [facility] CBC-Complete Blood Cnt No Di ffon 01-05-2025 Erythrocyte distribution width (RBC) [Ratio] 12.9 % Normal 11.6-14.6 [facility] Comment on above: Performed By: #### L 500.3600, L100.0500 ####[facility] [address] [place], [address] Hematocrit (Bld) [Volume fraction] 29.6 % Low 37-47 [facility] Comment on above: Performed By: #### L 500.3600, L100.0500 ####[facility] [address] [place], [address] Hemoglobin (Bld) [Mass/Vol] 9.4 g/dL Low 12.0-15.0 [facility] Comment on above: Performed By: #### L 500.3600, L100.0500 ####[facility] [address] [place], [address] MCH (RBC) [Entitic mass] 30.3 pg Normal 27.0-32.0 [facility] Comment on above: Performed By: #### L 500.3600, L100.0500 ####[facility] [address] [place], [address] MCHC (RBC) [Mass/Vol] 31.8 g/dL Low 32-36 [facility] Comment on above: Performed By: #### L 500.3600, L100.0500 ####[facility] [address] [place], [address] MCV (RBC) [Entitic vol] 95.5 fL Normal 81-99 [facility] Comment on above: Performed By: #### L 500.3600, L100.0500 ####[facility] [address] [place], [address] Platelet mean volume (Bld) [Entitic vol] 10.0 fL Normal 6.2-12.0 [facility] Comment on above: Performed By: #### L 500.3600, L100.0500 ####[facility] [address] [place], [address] Platelets (Bld) [#/Vol] 235 10*3/uL Normal 150-450 [facility] Comment on above: Performed By: #### L 500.3600, L100.0500 ####[facility] [address] [place], [address] RBC (Bld) [#/Vol] 3.10 10*6/uL Low 4.2-5.4 [facility] Comment on above: Performed By: #### L 500.3600, L100.0500 ####[facility] [address] [place], [address] RDW SD 44.2 fl High 35.1-43.9 [facility] Comment on above: Performed By: #### L 500.3600, L100.0500 ####[facility] [address] [place], [address] WBC (Bld) [#/Vol] 10.5 10*3/uL Normal 4.4-11.0 [facility] Comment on above: Performed By: #### L 500.3600, L100.0500 ####[facility] [address] [place], [place], [address] Consultation - Intensiviston 01-05-2025 Consultation - Rubber Tester Normal [facility] Determination of fraction of inspired oxygenOrdered By: He Cat on 01-05-2025 Determination of fraction of inspired oxygen 30.0 [facility] HbA1c (Bld) [Mass fraction]O rdered By: He Cat on 01-05-2025 Hemoglobin A1c percentage 6.6 % >5.7 [facility] Hemoglobin A1con 01-05-2025 HbA1c (Bld) [Mass fraction] 6.6 % Normal <=5.6 [facility] Comment on above: Performed By: #### L 501.9985 ####[facility] [address] [place], [place], [id number] Hemoglobin A1c percentageOrd ered By: He Cat on 01-05-2025 HbA1c (Bld) [Mass fraction] 6.6 % >5.7 [facility] L509.7001on 01-05-2025 Procalcitonin 2.31 ng/mL High <=0.10 [facility] Comment on above: Result Comment: Inte rpretation:<0.10-0.25 ng/mL: Antibiotic therapy discouraged. Bacterialinfection unlikely.0.25-0.50 ng/mL: Antibiotic therapy encouraged. Bacterialinfection possible.>0.50 ng/mL: Antibiotic therapy strongly encouraged.Suggestive of presence of bacterial infection.PCT should always be interpreted in the clinical context ofthe patient. Therefore, clinicians should use the PCTresults in conjunction with other laboratory findings andclinical signs of the patient. Performed By: #### L 509.7001 ####[facility] [address] [place], [place], [address] Measurement, pHOrdered By: Isabelle Cat on 01-05-2025 pH (Unsp spec) 7.28 [pH] Low 7.35-7.45 [facility] No Panel InformationOrdered By: He Cat on 01-05-2025 ART [facility] L Radial [facility] Not entered [facility] BiPAP [facility] See comment [facility] No Panel InformationOrdered By: Terrance Alva on 01-05-2025 2.31 ng/mL High <0.11 [facility] Oxygen saturation measuremen tOrdered By: He Cat on 01-05-2025 Oxygen saturation measurement 95 % 95-99 [facility] Partial pressure of carbon d ioxide measurementOrdered By: He Cat on 01-05-2025 Partial pressure of carbon dioxide measurement 55.0 mmHg High 35-45 [facility] Partial pressure of oxygen m easurementOrdered By: He Cat on 01-05-2025 Partial pressure of oxygen measurement 87 mmHG 75-100 [facility] RESPIRATORY PANEL MOLECULARo n 01-05-2025 RP PANEL Normal [facility] Comment on above: Performed By: #### M 100.638 ####[facility] [address] [place], [address] Renal Profileon 01-05-2025 Albumin [Mass/Vol] 3.4 g/dL Normal 3.4-4.8 [facility] Comment on above: Performed By: #### L 500.3600, L100.0500 ####[facility] [address] [place], [address] BUN/CRE 10.7 RATIO Normal 10-20 [facility] Comment on above: Performed By: #### L 500.3600, L100.0500 ####[facility] [address] [place], [address] Calcium [Mass/Vol] 9.2 mg/dL Normal 7.6-11.0 [facility] Comment on above: Performed By: #### L 500.3600, L100.0500 ####[facility] [address] [place], [address] Chloride [Moles/Vol] 95 mmol/L Low 98-108 [facility] Comment on above: Performed By: #### L 500.3600, L100.0500 ####[facility] [address] [place], [address] CO2 [Moles/Vol] 23.6 mmol/L Normal 21.0-32.0 [facility] Comment on above: Performed By: #### L 500.3600, L100.0500 ####[facility] [address] [place], [address] Creatinine [Mass/Vol] 3.67 mg/dL High 0.70-1.20 [facility] Comment on above: Performed By: #### L 500.3600, L100.0500 ####[facility] [address] [place], [address] ECRCL 11.77 ml/min Low 50-250 [facility] Comment on above: Performed By: #### L 500.3600, L100.0500 ####[facility] [address] [place], [address] GAP 11 Normal 5-15 [facility] Comment on above: Performed By: #### L 500.3600, L100.0500 ####[facility] [address] [place], [address] GFR/1.73 sq M.predicted among non-blacks MDRD (S/P/Bld) [Vol rate/Area] 13 mL/min/{1.73_m2} Low >60 [facility] Comment on above: Result Comment: mL/m in/1.73m2 CKD-EPI Creatinine Equation (2020) Performed By: #### L 500.3600, L100.0500 ####[facility] [address] [place], [address] Glucose [Mass/Vol] 301 mg/dL High 70-99 [facility] Comment on above: Performed By: #### L 500.3600, L100.0500 ####[facility] [address] [place], [address] Potassium [Moles/Vol] 6.1 mmol/L Invalid Interpretation Code 3.3-5.1 [facility] Comment on above: Result Comment: Crit ical Result(s) Called at 01/05/2025-09:34 by Kalia Tong??Results read back by same. Performed By: #### L 500.3600, L100.0500 ####[facility] [address] [place], [address] Sodium [Moles/Vol] 130 mmol/L Low 133-145 [facility] Comment on above: Performed By: #### L 500.3600, L100.0500 ####[facility] [address] [place], [address] Urea nitrogen [Mass/Vol] 39 mg/dL High 4-19 [facility] Comment on above: Performed By: #### L 500.3600, L100.0500 ####[facility] [address] [place], [address] Respiratory pathogens detect ion panel by molecular detection methodOrdered By: Terrance Alva on 01-05-2025 Respiratory pathogens DNA and RNA panel MARISA+probe (Resp) [facility] Serum or plasma albumin lesly urement (mass/volume)Ordered By: Christy Huerta on 01-05-2025 Albumin [Mass/Vol] 3.4 g/dL 3.4-4.8 [facility] Serum or plasma vancomycin m easurement (mass/volume)Ordered By: He Cat on 01-05-2025 Vancomycin [Mass/Vol] 15.1 ug/mL High 0.0-15.0 [facility] Serum phosphorus measurement Ordered By: Christy Huerta on 01-05-2025 Serum phosphorus measurement 4.3 mg/dL 2.7-4.5 [facility] Total carbon dioxide measure mentOrdered By: He Cat on 01-05-2025 CO2 [Moles/Vol] 27 mmol/L Normal [facility] Comment on above: Performed By: #### L 9000.0800 ####[facility] [address] [place], [address] Total carbon dioxide measurement 27 mmol/L [facility] Vancomycin [Mass/Vol]Ordered By: He Cat on 01-05-2025 Serum or plasma vancomycin measurement (mass/volume) 15.1 ug/mL High 0.0-15.0 [facility] Vancomycin, Random Levelon 0 01-05-2025 VANCO, RANDOM 15.1 ug/mL High 0.0-15.0 [facility] Comment on above: Order Comment: Comme nts: BEFORE HEMODIALYSIS Result Comment: VANC OMYCIN STANDARD DRUG THERAPY: CRITICAL VALUE IS > 15.0 mg/LVANCOMYCIN HIGH INTENSITY THERAPY: CRITICAL VALUE IS > 20.0 mg/LPLEASE CONTACT PHARMACY SERVICES (#7039) FOR INTERPRETATIONOF RESULTS. THIS RESULT DOES NOT REPRESENT A PEAK OR TROUGHLEVEL FOR THIS DRUG. Performed By: #### L 501.8850 ####[facility] [address] [place], [address] pH (Unsp spec)Ordered By: Sarbjit Cat on 01-05-2025 Measurement, pH 7.28 Low 7.35-7.45 [facility] Basic Metabolic Profile (BMP )on 01-04-2025 BUN/CRE 9.2 RATIO Low 10-20 [facility] Comment on above: Performed By: #### L 100.0100, L500.2500 ####[facility] [address] [place], [address] Calcium [Mass/Vol] 9.8 mg/dL Normal 7.6-11.0 [facility] Comment on above: Performed By: #### L 100.0100, L500.2500 ####[facility] [address] [place], [address] Chloride [Moles/Vol] 94 mmol/L Low 98-108 [facility] Comment on above: Performed By: #### L 100.0100, L500.2500 ####[facility] [address] [place], [address] CO2 [Moles/Vol] 26.9 mmol/L Normal 21.0-32.0 [facility] Comment on above: Performed By: #### L 100.0100, L500.2500 ####[facility] [address] [place], [address] Creatinine [Mass/Vol] 4.27 mg/dL High 0.70-1.20 [facility] Comment on above: Performed By: #### L 100.0100, L500.2500 ####[facility] [address] [place], [address] ECRCL 10.41 ml/min Low 50-250 [facility] Comment on above: Performed By: #### L 100.0100, L500.2500 ####[facility] [address] [place], [address] GAP 8 Normal 5-15 [facility] Comment on above: Performed By: #### L 100.0100, L500.2500 ####[facility] [address] [place], [address] GFR/1.73 sq M.predicted among non-blacks MDRD (S/P/Bld) [Vol rate/Area] 11 mL/min/{1.73_m2} Low >60 [facility] Comment on above: Result Comment: mL/m in/1.73m2 CKD-EPI Creatinine Equation (2020) Performed By: #### L 100.0100, L500.2500 ####[facility] [address] [place], [address] Glucose [Mass/Vol] 256 mg/dL High 70-99 [facility] Comment on above: Performed By: #### L 100.0100, L500.2500 ####[facility] [address] [place], [address] Potassium [Moles/Vol] 5.4 mmol/L High 3.3-5.1 [facility] Comment on above: Performed By: #### L 100.0100, L500.2500 ####[facility] [address] [place], [address] Sodium [Moles/Vol] 129 mmol/L Low 133-145 [facility] Comment on above: Performed By: #### L 100.0100, L500.2500 ####[facility] [address] [place], [address] Urea nitrogen [Mass/Vol] 39 mg/dL High 4-19 [facility] Comment on above: Performed By: #### L 100.0100, L500.2500 ####[facility] [address] [place], [address] Bedside Glucoseon 01-04-2025 FINGERSTICK GLU 308 mg/dL High 74-106 [facility] Comment on above: Result Comment: SHELLY GEMENT OF PATIENT CARE PER NURSING PROTOCOL Performed By: #### L 501.080 ####[facility] [address] [place], [address] FINGERSTICK GLU 133 mg/dL High 74-106 [facility] Comment on above: Result Comment: SHELLY GEMENT OF PATIENT CARE PER NURSING PROTOCOL Performed By: #### L 501.080 ####[facility] [address] [place], [address] FINGERSTICK GLU 282 mg/dL High 74-106 [facility] Comment on above: Result Comment: SHELLY GEMENT OF PATIENT CARE PER NURSING PROTOCOL Performed By: #### L 501.080 ####[facility] [address] [place], [address] FINGERSTICK GLU 37 mg/dL Invalid Interpretation Code 74-106 [facility] Comment on above: Result Comment: [facility] GivenMANAGEMENT OF PATIENT CARE PER NURSING PROTOCOL Performed By: #### L 501.080 ####[facility] [address] [place], [address] FINGERSTICK GLU 33 mg/dL Invalid Interpretation Code 74-106 [facility] Comment on above: Result Comment: [facility] k GivenMANAGEMENT OF PATIENT CARE PER NURSING PROTOCOL Performed By: #### L 501.080 ####[facility] [address] [place], [address] FINGERSTICK GLU 303 mg/dL High [address] [place] [address] Comment on above: Result Comment: SHELLY GEMENT OF PATIENT CARE PER NURSING PROTOCOL Performed By: #### L 501.080 ####[facility] [address] [place], [address] FINGERSTICK GLU 188 mg/dL High [address] [place] [address] Comment on above: Result Comment: SHELLY GEMENT OF PATIENT CARE PER NURSING PROTOCOL Performed By: #### L 501.080 ####[facility] [address] [place], [address] FINGERSTICK GLU 132 mg/dL High [address] [place] [address] Comment on above: Result Comment: SHELLY GEMENT OF PATIENT CARE PER NURSING PROTOCOL Performed By: #### L 501.080 ####[facility] [address] [place], [address] FINGERSTICK GLU 153 mg/dL High -[address] [place] [address] Comment on above: Result Comment: SHELLY GEMENT OF PATIENT CARE PER NURSING PROTOCOL Performed By: #### L 501.080 ####[facility] [address] [place], [address] FINGERSTICK GLU 173 mg/dL High [address] [place] [address] Comment on above: Result Comment: SHELLY GEMENT OF PATIENT CARE PER NURSING PROTOCOL Performed By: #### L 501.080 ####[facility] [address] [place], [address] FINGERSTICK GLU 251 mg/dL High 74-106 [facility] Comment on above: Result Comment: SHELLY GEMENT OF PATIENT CARE PER NURSING PROTOCOL Performed By: #### L 501.080 ####[facility] [address] [place], [address] FINGERSTICK GLU 244 mg/dL High 74-106 [facility] Comment on above: Result Comment: SHELLY GEMENT OF PATIENT CARE PER NURSING PROTOCOL Performed By: #### L 501.080 ####[facility] [address] [place], [address] FINGERSTICK GLU 170 mg/dL High 74-106 [facility] Comment on above: Result Comment: SHELLY GEMENT OF PATIENT CARE PER NURSING PROTOCOL Performed By: #### L 501.080 ####[facility] [address] [place], [address] Blood Gases by [facility] 025 TINY TEST Positive Normal [facility] Comment on above: Performed By: #### L 9000.0800 ####[facility] [address] [place], [address] Base excess Calc (Bld) [Moles/Vol] 7 mmol/L High -2 to +2 [facility] Comment on above: Performed By: #### L 9000.0800 ####[facility] [address] [place], [address] Blood Gas Type ART Normal [facility] Comment on above: Performed By: #### L 9000.0800 ####[facility] [address] [place], [address] CO2 [Moles/Vol] 36 mmol/L Normal [facility] Comment on above: Performed By: #### L 9000.0800 ####[facility] [address] [place], [address] Comment Normal [facility] Comment on above: Result Comment: Bipa p settings of 15/8 rate of 12, fio2 30% Performed By: #### L 9000.0800 ####[facility] [address] [place], [address] FI02 30.0 Normal [facility] Comment on above: Performed By: #### L 9000.0800 ####[facility] [address] [place], [address] HCO3 (Bld) [Moles/Vol] 33.3 mmol/L High 22-[address] [facility] Comment on above: Performed By: #### L 9000.0800 ####[facility] [address] [place], [address] Mode Not entered Normal [facility] Comment on above: Performed By: #### L 9000.0800 ####[facility] [address] [place], [address] O2 Delivery Dev BiPAP Normal [facility] Comment on above: Performed By: #### L 9000.0800 ####[facility] [address] [place], [address] pCO2 71.6 mmHg Invalid Interpretation Code 35-45 [facility] Comment on above: Performed By: #### L 9000.0800 ####[facility] [address] [place], [address] pH (Bld) 7.28 [pH] Low 7.35-7.45 [facility] Comment on above: Performed By: #### L 9000.0800 ####[facility] [address] [place], [address] PO2 69 mmHG Low 75-100 [facility] Comment on above: Performed By: #### L 9000.0800 ####[facility] [address] [place], [address] Read Back By Yes Normal [facility] Comment on above: Performed By: #### L 9000.0800 ####[facility] [address] [place], [address] SITE % Normal [facility] Comment on above: Performed By: #### L 9000.0800 ####[facility] [address] [place], [address] SO2 90 Low 95-99 [facility] Comment on above: Performed By: #### L 9000.0800 ####[facility] [address] [place], [address] TINY TEST Positive Normal [facility] Comment on above: Performed By: #### L 9000.0800 ####[facility] [address] [place], [address] Base excess Calc (Bld) [Moles/Vol] 4 mmol/L High -2 to +2 [facility] Comment on above: Performed By: #### L 9000.0800 ####[facility] [address] [place], [address] Blood Gas Type ART Normal [facility] Comment on above: Performed By: #### L 9000.0800 ####[facility] [address] [place], [address] CO2 [Moles/Vol] 34 mmol/L Normal [facility] Comment on above: Performed By: #### L 9000.0800 ####[facility] [address] [place], [address] FI02 3.0 Normal [facility] Comment on above: Performed By: #### L 9000.0800 ####[facility] [address] [place], [address] HCO3 (Bld) [Moles/Vol] 31.3 mmol/L High 22-[address] [facility] Comment on above: Performed By: #### L 9000.0800 ####[facility] [address] [place], [address] Mode Not entered [facility] Comment on above: Performed By: #### L 9000.0800 ####[facility] [address] [place], [address] O2 Delivery Dev Cannula Normal [facility] Comment on above: Performed By: #### L 9000.0800 ####[facility] [address] [place], [address] pCO2 72.6 mmHg Invalid Interpretation Code 35-45 [facility] Comment on above: Performed By: #### L 9000.0800 ####[facility] [address] [place], [address] pH (Bld) 7.24 [pH] Low 7.35-7.45 [facility] Comment on above: Performed By: #### L 9000.0800 ####[facility] [address] [place], [address] PO2 86 mmHG Normal 75-100 [facility] Comment on above: Performed By: #### L 9000.0800 ####[facility] [address] [place], [address] Read Back By Yes [facility] Comment on above: Performed By: #### L 9000.0800 ####[facility] [address] [place], [address] Results To pradeep [facility] Comment on above: Performed By: #### L 9000.0800 ####[facility] [address] [place], [address] SITE L Radial Normal [facility] Comment on above: Performed By: #### L 9000.0800 ####[facility] [address] [place], [address] SO2 94 Low 95-99 [facility] Comment on above: Performed By: #### L 9000.0800 ####[facility] [address] [place], [address] Time Given 10:46:25 Normal [facility] Comment on above: Performed By: #### L 9000.0800 ####[facility] [address] [place], [address] CBC W/Diff, Automatedon 03-0 4-2024 Absolute Lymph 2.60 X10 3/uL Normal 0.83-4.51 [facility] Comment on above: Performed By: #### L 100.0100, L500.2500 ####[facility] [address] [place], [address] Absolute Neut 7.4 X10 3/uL Normal 2.0-7.7 [facility] Comment on above: Performed By: #### L 100.0100, L500.2500 ####[facility] [address] [place], [address] Basophils/100 WBC (Bld) 0.6 % Normal 0-1 [facility] Comment on above: Performed By: #### L 100.0100, L500.2500 ####[facility] [address] [place], [address] Eosinophils/100 WBC (Bld) 6.4 % High 0-5 [facility] Comment on above: Performed By: #### L 100.0100, L500.2500 ####[facility] [address] [place], [address] Erythrocyte distribution width (RBC) [Ratio] 12.5 % Normal 11.6-14.6 [facility] Comment on above: Performed By: #### L 100.0100, L500.2500 ####[facility] [address] [place], [address] Hematocrit (Bld) [Volume fraction] 29.7 % Low 37-47 [facility] Comment on above: Performed By: #### L 100.0100, L500.2500 ####[facility] [address] [place], [address] Hemoglobin (Bld) [Mass/Vol] 9.2 g/dL Low 12.0-15.0 [facility] Comment on above: Performed By: #### L 100.0100, L500.2500 ####[facility] [address] [place], [address] IG% 0.400 Normal 0.0-0.9 [facility] Comment on above: Result Comment: IG% - Immature Granulocytes (promyelocytes, myelocytes andmetamyelocytes) > 1% indicates that a LEFT SHIFT is Present. Performed By: #### L 100.0100, L500.2500 ####[facility] [address] [place], [address] Lymphocytes/100 WBC (Bld) 21.5 % Normal 19-41 [facility] Comment on above: Performed By: #### L 100.0100, L500.2500 ####[facility] [address] [place], [address] MCH (RBC) [Entitic mass] 30.3 pg Normal 27.0-32.0 [facility] Comment on above: Performed By: #### L 100.0100, L500.2500 ####[facility] [address] [place], [address] MCHC (RBC) [Mass/Vol] 31.0 g/dL Low 32-36 [facility] Comment on above: Performed By: #### L 100.0100, L500.2500 ####[facility] [address] [place], [address] MCV (RBC) [Entitic vol] 97.7 fL Normal 81-99 [facility] Comment on above: Performed By: #### L 100.0100, L500.2500 ####[facility] [address] [place], [address] Monocytes/100 WBC (Bld) 10.2 % High 0-10 [facility] Comment on above: Performed By: #### L 100.0100, L500.2500 ####[facility] [address] [place], [address] Neutrophils/100 WBC (Bld) 60.9 % Normal 47-70 [facility] Comment on above: Performed By: #### L 100.0100, L500.2500 ####[facility] [address] [place], [address] Nucleated RBC (Bld) [#/Vol] 0 10*3/uL Normal 0-5 [facility] Comment on above: Performed By: #### L 100.0100, L500.2500 ####[facility] [address] [place], [address] Platelet mean volume (Bld) [Entitic vol] 9.5 fL Normal 6.2-12.0 [facility] Comment on above: Performed By: #### L 100.0100, L500.2500 ####[facility] [address] [place], [address] Platelets (Bld) [#/Vol] 227 10*3/uL Normal 150-450 [facility] Comment on above: Performed By: #### L 100.0100, L500.2500 ####[facility] [address] [place], [address] RBC (Bld) [#/Vol] 3.04 10*6/uL Low 4.2-5.4 [facility] Comment on above: Performed By: #### L 100.0100, L500.2500 ####[facility] [address] [place], [address] RDW SD 44.8 fl High 35.1-43.9 [facility] Comment on above: Performed By: #### L 100.0100, L500.2500 ####[facility] [address] [place], [address] WBC (Bld) [#/Vol] 12.1 10*3/uL High 4.4-11.0 [facility] Comment on above: Performed By: #### L 100.0100, L500.2500 ####[facility] [address] [place], [address] Consultation - Nephrologyon 01-04-2025 Consultation - Nephrology Normal [facility] Influenza virus A and B and SARS-CoV-2 (COVID-19) and Respiratory syncytial virus RNAOrdered By: He Cat on 01-04-2025 SARS-CoV-2 (COVID-19) RNA MARISA+probe Ql (Unsp spec) [facility] M100.678on 01-04-2025 M100.678 Pending SARS-CoV-2 (COVID 19) Negative INFLUENZA A Negative INFLUENZA B Negative RSV PCR Negative Normal [facility] Comment on above: Performed By: #### M 100.678 ####[facility] [address] [place], [address] M8200.1000on 01-04-2025 M8200.1000 Normal Reference Ran ge = Negative GeneXpert Instrument, PCR method MRSA PCR MRSA NEGATIVE Normal [facility] Comment on above: Performed By: #### M 8200.1000 ####[facility] [address] [place], [address] Nasal methicillin resistant Staphylococcus aureus (MRSA) DNA detection by PCROrdered By: He Cat on 01-04-2025 MRSA DNA MARISA+probe Ql (Nose) [facility] No Panel InformationOrdered By: He Cat on 01-04-2025 Yes [facility] 10:46:25 [facility] pradeep [facility] 12 Lead EKGon 01-03-2025 12 Lead EKG Normal [facility] Basic Metabolic Profile (BMP )on 01-03-2025 BUN/CRE 9.0 RATIO Low 10-20 [facility] Comment on above: Performed By: #### L 500.2500, L100.0100 ####[facility] [address] [place], [address] Calcium [Mass/Vol] 9.2 mg/dL Normal 7.6-11.0 [facility] Comment on above: Performed By: #### L 500.2500, L100.0100 ####[facility] [address] [place], [address] Chloride [Moles/Vol] 95 mmol/L Low 98-108 [facility] Comment on above: Performed By: #### L 500.2500, L100.0100 ####[facility] [address] [place], [address] CO2 [Moles/Vol] 32.3 mmol/L High 21.0-32.0 [facility] Comment on above: Performed By: #### L 500.2500, L100.0100 ####[facility] [address] [place], [address] Creatinine [Mass/Vol] 4.48 mg/dL High 0.70-1.20 [facility] Comment on above: Performed By: #### L 500.2500, L100.0100 ####[facility] [address] [place], [address] ECRCL 11.50 ml/min Low 50-250 [facility] Comment on above: Performed By: #### L 500.2500, L100.0100 ####[facility] [address] [place], [address] GAP 5 Normal 5-15 [facility] Comment on above: Performed By: #### L 500.2500, L100.0100 ####[facility] [address] [place], [address] GFR/1.73 sq M.predicted among non-blacks MDRD (S/P/Bld) [Vol rate/Area] 10 mL/min/{1.73_m2} Low >60 [facility] Comment on above: Result Comment: mL/m in/1.73m2 CKD-EPI Creatinine Equation (2020) Performed By: #### L 500.2500, L100.0100 ####[facility] [address] [place], [address] Glucose [Mass/Vol] 158 mg/dL High 70-99 [facility] Comment on above: Performed By: #### L 500.2500, L100.0100 ####[facility] [address] [place], [address] Potassium [Moles/Vol] 5.8 mmol/L High 3.3-5.1 [facility] Comment on above: Result Comment: Hemo lysis present, Results??could be affected.?? Performed By: #### L 500.2500, L100.0100 ####[facility] [address] [place], [address] Sodium [Moles/Vol] 133 mmol/L Normal 133-145 [facility] Comment on above: Performed By: #### L 500.2500, L100.0100 ####[facility] [address] [place], [address] Urea nitrogen [Mass/Vol] 40 mg/dL High 4-19 [facility] Comment on above: Performed By: #### L 500.2500, L100.0100 ####[facility] [address] [place], [address] CBC W/Diff, Automatedon 03-0 3-2024 Absolute Lymph 1.39 X10 3/uL Normal 0.83-4.51 [facility] Comment on above: Performed By: #### L 500.2500, L100.0100 ####[facility] [address] [place], [address] Absolute Neut 6.3 X10 3/uL Normal 2.0-7.7 [facility] Comment on above: Performed By: #### L 500.2500, L100.0100 ####[facility] [address] [place], [address] Basophils/100 WBC (Bld) 0.6 % Normal 0-1 [facility] Comment on above: Performed By: #### L 500.2500, L100.0100 ####[facility] [address] [place], [address] Eosinophils/100 WBC (Bld) 7.0 % High 0-5 [facility] Comment on above: Performed By: #### L 500.2500, L100.0100 ####[facility] [address] [place], [address] Erythrocyte distribution width (RBC) [Ratio] 12.4 % Normal 11.6-14.6 [facility] Comment on above: Performed By: #### L 500.2500, L100.0100 ####[facility] [address] [place], [address] Hematocrit (Bld) [Volume fraction] 31.8 % Low 37-47 [facility] Comment on above: Performed By: #### L 500.2500, L100.0100 ####[facility] [address] [place], [address] Hemoglobin (Bld) [Mass/Vol] 10.1 g/dL Low 12.0-15.0 [facility] Comment on above: Performed By: #### L 500.2500, L100.0100 ####[facility] [address] [place], [address] IG% 0.400 Normal 0.0-0.9 [facility] Comment on above: Result Comment: IG% - Immature Granulocytes (promyelocytes, myelocytes andmetamyelocytes) > 1% indicates that a LEFT SHIFT is Present. Performed By: #### L 500.2500, L100.0100 ####[facility] [address] [place], [address] Lymphocytes/100 WBC (Bld) 15.0 % Low 19-41 [facility] Comment on above: Performed By: #### L 500.2500, L100.0100 ####[facility] [address] [place], [address] MCH (RBC) [Entitic mass] 30.4 pg Normal 27.0-32.0 [facility] Comment on above: Performed By: #### L 500.2500, L100.0100 ####[facility] [address] [place], [address] MCHC (RBC) [Mass/Vol] 31.8 g/dL Low 32-36 [facility] Comment on above: Performed By: #### L 500.2500, L100.0100 ####[facility] [address] [place], [address] MCV (RBC) [Entitic vol] 95.8 fL Normal 81-99 [facility] Comment on above: Performed By: #### L 500.2500, L100.0100 ####[facility] [address] [place], [address] Monocytes/100 WBC (Bld) 8.8 % Normal 0-10 [facility] Comment on above: Performed By: #### L 500.2500, L100.0100 ####[facility] [address] [place], [address] Neutrophils/100 WBC (Bld) 68.2 % Normal 47-70 [facility] Comment on above: Performed By: #### L 500.2500, L100.0100 ####[facility] [address] [place], [address] Nucleated RBC (Bld) [#/Vol] 0 10*3/uL Normal 0-5 [facility] Comment on above: Performed By: #### L 500.2500, L100.0100 ####[facility] [address] [place], [address] Platelet mean volume (Bld) [Entitic vol] 9.5 fL Normal 6.2-12.0 [facility] Comment on above: Performed By: #### L 500.2500, L100.0100 ####[facility] [address] [place], [address] Platelets (Bld) [#/Vol] 228 10*3/uL Normal 150-450 [facility] Comment on above: Performed By: #### L 500.2500, L100.0100 ####[facility] [address] [place], [address] RBC (Bld) [#/Vol] 3.32 10*6/uL Low 4.2-5.4 [facility] Comment on above: Performed By: #### L 500.2500, L100.0100 ####[facility] [address] [place], [address] RDW SD 43.1 fl Normal 35.1-43.9 [facility] Comment on above: Performed By: #### L 500.2500, L100.0100 ####[facility] [address] [place], [address] WBC (Bld) [#/Vol] 9.3 10*3/uL Normal 4.4-11.0 [facility] Comment on above: Performed By: #### L 500.2500, L100.0100 ####[facility] [address] [place], [address] Chest PA and Lateralon 01-03 Chest PA and Lateral Normal [facility] Emergency Department Summary on 01-03-2025 Emergency Department Summary Normal [facility] CNPNon 12-30-2024 CNPN Telephone (TXCTGL) SANDY DENG ([id number]) 1960 F Date Time Provider Department 12/30/24 KIDNEY TXP COORDINATORS TXCTGL During your visit today, we recorded the following information about you: [place] James 12/30/2024 11:06 AM Signed Called and spoke with the patient in regards to kidney transplant referral, she states she started the process with [facility], and would like to go through the [...] Reason for Visit: Referral - Kidney Txp [[id number]] Prescriptions as of 12/30/2024 - promethazine (PHENERGAN) [...] Encounter Status:Closed by MONTANA JAMES on 12/30/24 [facility] 12-29-2024 [facility] Telephone (TXCTGL) SANDY DENG ([id number]) 1960 F Date Time Provider Department 12/29/24 [facility] During your visit today, we recorded the following information about you: Otilia Portillo Tech 12/29/2024 10:51 AM Signed I spoke with Lita at [facility] who confirmed the patients demographic information and confirmed that the phone number that we have on file for the patient is incorrect. The correct phone number is [phone]. Allergies As of Date: 12/29/2024 Noted Allergy Reaction environmental [Other] 03/23/2009 Date Reviewed: 04/02/2012 Reviewed by: Domniga Garza (Rn), RN - Fully Assessed Reason for Visit: Referral - Kidney Txp [[id number]] Prescriptions as of 12/29/2024 - promethazine (PHENERGAN) [...] Status:Closed by OTILIA PORTILLO on 12/29/24 Normal [facility] Bedside Glucoseon 12-28-2024 FINGERSTICK GLU 207 mg/dL High 74-106 [facility] Comment on above: Result Comment: SHELLY ENGEL OF PATIENT CARE PER NURSING PROTOCOL Performed By: #### L 501.080 ####[facility] [address] [place], [place], [id number] FINGERSTICK GLU 166 mg/dL High 74-106 [facility] Comment on above: Result Comment: SHELLY GEMENT OF PATIENT CARE PER NURSING PROTOCOL Performed By: #### L 501.080 ####[facility] [address] [place], [address] FINGERSTICK GLU 135 mg/dL High 74-106 [facility] Comment on above: Result Comment: SHELLY GEMENT OF PATIENT CARE PER NURSING PROTOCOL Performed By: #### L 501.080 ####[facility] [address] [place], [address] Discharge Instructionon 12-05 Discharge Instruction Normal [facility] Glucose measurement at bedsi deOrdered By: Favian Sinclair on 12-28-2024 Glucose [Mass/Vol] 207 mg/dL High 74-106 [facility] Glucose measurement at bedside 207 mg/dL High 74-106 [facility] MR/POSTOP.ANEon 12-28-2024 MR/POSTOP.ANE Normal [facility] MR/ZSMNTIDL5gd 12-28-2024 MR/POSTOPAN2 Normal [facility] Operative Reporton Operative Report Normal [facility] Basic Metabolic Profile (BMP )on 12-25-2024 BUN/CRE 6.9 RATIO Low 10-20 [facility] Comment on above: Performed By: #### L 500.2500, L100.0500 ####[facility] [address] [place], [address] CA,Total 9.0 mg/dL Normal 8.5-10.1 [facility] Comment on above: Performed By: #### L 500.2500, L100.0500 ####[facility] [address] [place], [address] Chloride [Moles/Vol] 96 mmol/L Low 98-107 [facility] Comment on above: Performed By: #### L 500.2500, L100.0500 ####[facility] [address] [place], [address] CO2 [Moles/Vol] 35.0 mmol/L High 21.0-32.0 [facility] Comment on above: Performed By: #### L 500.2500, L100.0500 ####[facility] [address] [place], [address] Creatinine [Mass/Vol] 3.19 mg/dL High 0.55-1.02 [facility] Comment on above: Result Comment: The validity of the calculated GFR GFRAA in patients over70 years has not been determined. Clinical correlation isessential. Performed By: #### L 500.2500, L100.0500 ####[facility] [address] [place], [address] EST GFR - AA 19 mL/min Low >60 [facility] Comment on above: Result Comment: Afri can Cameroonian GFR Calc Performed By: #### L 500.2500, L100.0500 ####[facility] [address] [place], [address] GAP 3 Low 5-15 [facility] Comment on above: Performed By: #### L 500.2500, L100.0500 ####[facility] [address] [place], [address] GFR/1.73 sq M.predicted among non-blacks MDRD (S/P/Bld) [Vol rate/Area] 16 mL/min/{1.73_m2} Low >60 [facility] Comment on above: Result Comment: Non- GFR Calc Performed By: #### L 500.2500, L100.0500 ####[facility] [address] [place], [address] Glucose [Mass/Vol] 212 mg/dL High 74-106 [facility] Comment on above: Result Comment: Gluc ose result greater than or equal to 200 mg/dLsuggests DIABETES MELLITUS per A.D.A. criteria. Performed By: #### L 500.2500, L100.0500 ####[facility] [address] [place], [address] Potassium [Moles/Vol] 4.0 mmol/L Normal 3.5-5.1 [facility] Comment on above: Performed By: #### L 500.2500, L100.0500 ####[facility] [address] [place], [address] Sodium [Moles/Vol] 134 mmol/L Low 136-145 [facility] Comment on above: Performed By: #### L 500.2500, L100.0500 ####[facility] [address] [place], [address] Urea nitrogen [Mass/Vol] 22 mg/dL High 7-18 [facility] Comment on above: Performed By: #### L 500.2500, L100.0500 ####[facility] [address] [place], [address] Blood urea nitrogen (BUN)/cr eatinine ratioOrdered By: Favian Sinclair on 12-25-2024 Blood urea nitrogen (BUN)/creatinine ratio 6.9 RATIO Low 10-20 [facility] CBC-Complete Blood Cnt No Di ffon 12-25-2024 Erythrocyte distribution width (RBC) [Ratio] 12.4 % Normal 11.6-14.6 [facility] Comment on above: Performed By: #### L 500.2500, L100.0500 ####[facility] [address] [place], [address] Hematocrit (Bld) [Volume fraction] 33.1 % Low 37-47 [facility] Comment on above: Performed By: #### L 500.2500, L100.0500 ####[facility] [address] [place], [address] Hemoglobin (Bld) [Mass/Vol] 10.6 g/dL Low 12.0-15.0 [facility] Comment on above: Performed By: #### L 500.2500, L100.0500 ####[facility] [address] [place], [address] MCH (RBC) [Entitic mass] 30.1 pg Normal 27.0-32.0 [facility] Comment on above: Performed By: #### L 500.2500, L100.0500 ####[facility] [address] [place], [address] MCHC (RBC) [Mass/Vol] 32.0 g/dL Normal 32-36 [facility] Comment on above: Performed By: #### L 500.2500, L100.0500 ####[facility] [address] [place], [address] MCV (RBC) [Entitic vol] 94.0 fL Normal 81-99 [facility] Comment on above: Performed By: #### L 500.2500, L100.0500 ####[facility] [address] [place], [address] Platelet mean volume (Bld) [Entitic vol] 9.4 fL Normal 6.2-12.0 [facility] Comment on above: Performed By: #### L 500.2500, L100.0500 ####[facility] [address] [place], [address] Platelets (Bld) [#/Vol] 220 10*3/uL Normal 150-450 [facility] Comment on above: Performed By: #### L 500.2500, L100.0500 ####[facility] [address] [place], [address] RBC (Bld) [#/Vol] 3.52 10*6/uL Low 4.2-5.4 [facility] Comment on above: Performed By: #### L 500.2500, L100.0500 ####[facility] [address] [place], [address] RDW SD 42.8 fl Normal 35.1-43.9 [facility] Comment on above: Performed By: #### L 500.2500, L100.0500 ####[facility] [address] [place], [address] WBC (Bld) [#/Vol] 7.7 10*3/uL Normal 4.4-11.0 [facility] Comment on above: Performed By: #### L 500.2500, L100.0500 ####[facility] [address] [place], [address] Calcium [Mass/Vol]Ordered By : Favian Sinclair on 12-25-2024 Serum or plasma calcium measurement (mass/volume) 9.0 mg/dL 8.5-10.1 [facility] Carbon dioxide measurementOr dered By: Favian Sinclair on 12-25-2024 CO2 [Moles/Vol] 35.0 mmol/L High 21.0-32.0 [facility] Carbon dioxide measurement 35.0 mmol/L High 21.0-32.0 [facility] Chloride measurementOrdered By: Favian Sinclair on 12-25-2024 Chloride [Moles/Vol] 96 mmol/L Low 98-107 [facility] Chloride measurement 96 mmol/L Low 98-107 [facility] Creatinine [Mass/Vol]Ordered By: Favian Sinclair on 12-25-2024 Serum or plasma creatinine measurement (mass/volume) 3.19 mg/dL High 0.55-1.02 [facility] Erythrocyte distribution wid th (RBC) [Entitic vol]Ordered By: Favian Sinclair on 12-25-2024 Erythrocyte distribution width standard deviation 42.8 fl 35.1-43.9 [facility] Erythrocyte distribution wid th (RBC) [Ratio]Ordered By: Favian Sinclair on 12-25-2024 Erythrocyte distribution width ratio 12.4 % 11.6-14.6 [facility] Erythrocyte distribution wid th ratioOrdered By: Favian Sinclair on 12-25-2024 Erythrocyte distribution width (RBC) [Ratio] 12.4 % 11.6-14.6 [facility] Erythrocyte distribution wid th standard deviationOrdered By: Favian Sinclair on 12-25-2024 Erythrocyte distribution width (RBC) [Ratio] 42.8 fl 35.1-43.9 [facility] Estimated glomerular filtrat ion rate (GFR) AmericanOrdered By: Favian Sinclair on 12-25-2024 Estimated glomerular filtration rate (GFR) 19 mL/min Low >60 [facility] Glomerular filtration rate ( GFR) estimationOrdered By: Favian Sinclair on 12-25-2024 GFR/1.73 sq M.predicted among non-blacks MDRD (S/P/Bld) [Vol rate/Area] 16 mL/min/{1.73_m2} Low >60 [facility] Glomerular filtration rate (GFR) estimation 16 mL/min Low >60 [facility] Glucose measurementOrdered B y: Favian Sinclair on 12-25-2024 Glucose [Mass/Vol] 212 mg/dL High 74-106 [facility] Glucose measurement 212 mg/dL High 74-106 [facility] Hematocrit Auto (Bld) [Volum e fraction]Ordered By: Favian Sinclair on 12-25-2024 Hematocrit (Bld) [Volume fraction] 33.1 % Low 37-47 [facility] Automated blood hematocrit (percentage) 33.1 % Low 37-47 [facility] Hemoglobin measurementOrdere d By: Favian Sinclair on 12-25-2024 Hemoglobin (Bld) [Mass/Vol] 10.6 g/dL Low 12.0-15.0 [facility] Hemoglobin measurement 10.6 g/dL Low 12.0-15.0 [facility] MCV (RBC) [Entitic vol]Order ed By: Favian Sinclair on 12-25-2024 MCV (mean corpuscular volume) determination 94.0 fL 81-99 [facility] MCV (mean corpuscular volume ) determinationOrdered By: Favian Sinclair on 12-25-2024 MCV (RBC) [Entitic vol] 94.0 fL 81-99 [facility] Mean corpuscular hemoglobin (MCH) determinationOrdered By: Favian Sinclair on 12-25-2024 MCH (RBC) [Entitic mass] 30.1 pg 27.0-32.0 [facility] Mean corpuscular hemoglobin (MCH) determination 30.1 pg 27.0-32.0 [facility] Mean corpuscular hemoglobin concentration (MCHC) determinationOrdered By: Favian Sinclair on 12-25-2024 Mean corpuscular hemoglobin concentration (MCHC) determination 32.0 g/dL 32-36 [facility] Mean platelet volume determi nationOrdered By: Favian Sinclair on 12-25-2024 Mean platelet volume determination 9.4 fl 6.2-12.0 [facility] Platelet countOrdered By: Shreyas Sinclair on 12-25-2024 Platelets (Bld) [#/Vol] 220 10*3/uL 150-450 [facility] Platelet count 220 K/mm3 150-450 [facility] Potassium measurementOrdered By: Favian Sinclair on 12-25-2024 Potassium [Moles/Vol] 4.0 mmol/L 3.5-5.1 [facility] Potassium measurement 4.0 mmol/L 3.5-5.1 [facility] RBC Auto (Bld) [#/Vol]Ordere d By: Favian Sinclair on 12-25-2024 RBC (Bld) [#/Vol] 3.52 10*6/uL Low 4.2-5.4 [facility] Automated blood erythrocyte count 3.52 M/mm3 Low 4.2-5.4 [facility] Serum anion gap measurementO rdered By: Favian Sinclair 12-25-2024 Serum anion gap measurement 3 Low 5-15 [facility] Serum or plasma calcium lesly urement (mass/volume)Ordered By: Favian Sinclair on 12-25-2024 Calcium [Mass/Vol] 9.0 mg/dL 8.5-10.1 [facility] Serum or plasma creatinine m easurement (mass/volume)Ordered By: Favian Sinclair 12-25-2024 Creatinine [Mass/Vol] 3.19 mg/dL High 0.55-1.02 [facility] Serum or plasma urea nitroge n measurement (mass/volume)Ordered By: Favian Sinclair 12-25-2024 Urea nitrogen [Mass/Vol] 22 mg/dL High 7-18 [facility] Sodium levelOrdered By: Favian Sinclair on 12-25-2024 Sodium [Moles/Vol] 134 mmol/L Low 136-145 [facility] Sodium level 134 mmol/L Low 136-145 [facility] Urea nitrogen [Mass/Vol]Orde red By: Favian Sinclair on 12-25-2024 Serum or plasma urea nitrogen measurement (mass/volume) 22 mg/dL High 7-18 [facility] White blood cell (WBC) count Ordered By: Favian Sinclair on 12-25-2024 WBC (Bld) [#/Vol] 7.7 10*3/uL 4.4-11.0 [facility] White blood cell (WBC) count 7.7 K/mm3 4.4-11.0 [facility] CNPNon 12-24-2024 CNPN Telephone (TXCTGL) SANDY DENG ([id number]) 1960 F Date Time Provider Department 12/24/[facility] During [facility] today, we recorded the [...] Reason for Visit: Referral - Kidney Txp [[id number]] Prescriptions as of 12/24/2024 - promethazine (PHENERGAN) [...] Status:Closed by [place] JAMES on 12/24/24 Normal [facility] MR/PAT.ANEon 12-20-2024 MR/PAT.ANE [facility] Echo Completeon 12-17-2024 Echo Complete [facility] Cardiology Visit Reporton Cardiology Visit Report Normal [facility] MR/PAT.ANEon 12-15-2024 MR/PAT.ANE [facility] MR/PAT.ANEon 12-14-2024 MR/PAT.ANE [facility] MR/BMS.BVSon 12-02-2024 MR/BMS.BVS Normal [facility] 12 Lead EKGon 11-20-2024 12 Lead EKG Normal [facility] 12 Lead EKG [facility] ALP [Catalytic activity/Vol] Ordered By: Alex Kaur on 11-20-2024 Serum or plasma alkaline phosphatase measurement 71 U/L 45-117 [facility] ALT [Catalytic activity/Vol] Ordered By: Alex Kaur on 11-20-2024 Serum or plasma alanine aminotransferase (ALT) measurement 17 U/L 13-56 [facility] Absolute neutrophil countOrd ered By: Alex Kaur on 11-20-2024 Absolute neutrophil count 4.4 X10^3/uL 2.0-7.7 [facility] Albumin [Mass/Vol]Ordered By : Alex Kaur on 11-20-2024 Serum or plasma albumin measurement (mass/volume) 2.9 g/dL Low 3.2-5.0 [facility] Albumin to globulin ratioOrd ered By: Alex Kaur on 11-20-2024 Albumin to globulin ratio 0.9 RATIO 0.9-2.4 [facility] Basophil percentageOrdered B y: Alex Kaur on 11-20-2024 Basophil percentage 0.6 % 0-1 [facility] Bilirubin, totalOrdered By: Alex Kaur on 11-20-2024 Bilirubin, total 0.30 mg/dL 0.20-1.00 [facility] Blood urea nitrogen (BUN)/cr eatinine ratioOrdered By: Alex Kaur on 11-20-2024 Blood urea nitrogen (BUN)/creatinine ratio 8.1 RATIO Low 10-20 [facility] CBC W/Diff, Automatedon 11-03 Absolute Lymph 1.88 X10 3/uL Normal 0.83-4.51 [facility] Comment on above: Performed By: #### L 500.4050, L100.0100 ####[facility] [address] [place], [address] Absolute Neut 4.4 X10 3/uL Normal 2.0-7.7 [facility] Comment on above: Performed By: #### L 500.4050, L100.0100 ####[facility] [address] [place], [address] Basophils/100 WBC (Bld) 0.6 % Normal 0-1 [facility] Comment on above: Performed By: #### L 500.4050, L100.0100 ####[facility] [address] [place], [address] Eosinophils/100 WBC (Bld) 7.6 % High 0-5 [facility] Comment on above: Performed By: #### L 500.4050, L100.0100 ####[facility] [address] [place], [address] Erythrocyte distribution width (RBC) [Ratio] 12.6 % Normal 11.6-14.6 [facility] Comment on above: Performed By: #### L 500.4050, L100.0100 ####[facility] [address] [place], [address] Hematocrit (Bld) [Volume fraction] 35.8 % Low 37-47 [facility] Comment on above: Performed By: #### L 500.4050, L100.0100 ####[facility] [address] [place], [address] Hemoglobin (Bld) [Mass/Vol] 11.5 g/dL Low 12.0-15.0 [facility] Comment on above: Performed By: #### L 500.4050, L100.0100 ####[facility] [address] [place], [address] IG% 0.500 Normal 0.0-0.9 [facility] Comment on above: Result Comment: IG% - Immature Granulocytes (promyelocytes, myelocytes andmetamyelocytes) > 1% indicates that a LEFT SHIFT is Present. Performed By: #### L 500.4050, L100.0100 ####[facility] [address] [place], [address] Lymphocytes/100 WBC (Bld) 24.4 % Normal 19-41 [facility] Comment on above: Performed By: #### L 500.4050, L100.0100 ####[facility] [address] [place], [address] MCH (RBC) [Entitic mass] 30.4 pg Normal 27.0-32.0 [facility] Comment on above: Performed By: #### L 500.4050, L100.0100 ####[facility] [address] [place], [address] MCHC (RBC) [Mass/Vol] 32.1 g/dL Normal 32-36 [facility] Comment on above: Performed By: #### L 500.4050, L100.0100 ####[facility] [address] [place], [address] MCV (RBC) [Entitic vol] 94.7 fL Normal 81-99 [facility] Comment on above: Performed By: #### L 500.4050, L100.0100 ####[facility] [address] [place], [address] Monocytes/100 WBC (Bld) 9.7 % Normal 0-10 [facility] Comment on above: Performed By: #### L 500.4050, L100.0100 ####[facility] [address] [place], [address] Neutrophils/100 WBC (Bld) 57.2 % Normal 47-70 [facility] Comment on above: Performed By: #### L 500.4050, L100.0100 ####[facility] [address] [place], [address] Nucleated RBC (Bld) [#/Vol] 0 10*3/uL Normal 0-5 [facility] Comment on above: Performed By: #### L 500.4050, L100.0100 ####[facility] [address] [place], [address] Platelet mean volume (Bld) [Entitic vol] 9.1 fL Normal 6.2-12.0 [facility] Comment on above: Performed By: #### L 500.4050, L100.0100 ####[facility] [address] [place], [address] Platelets (Bld) [#/Vol] 193 10*3/uL Normal 150-450 [facility] Comment on above: Performed By: #### L 500.4050, L100.0100 ####[facility] [address] [place], [address] RBC (Bld) [#/Vol] 3.78 10*6/uL Low 4.2-5.4 [facility] Comment on above: Performed By: #### L 500.4050, L100.0100 ####[facility] [address] [place], [address] RDW SD 42.2 fl Normal 35.1-43.9 [facility] Comment on above: Performed By: #### L 500.4050, L100.0100 ####[facility] [address] [place], [address] WBC (Bld) [#/Vol] 7.7 10*3/uL Normal 4.4-11.0 [facility] Comment on above: Performed By: #### L 500.4050, L100.0100 ####[facility] [address] [place], [address] Calcium [Mass/Vol]Ordered By : Alex Kaur on 11-20-2024 Serum or plasma calcium measurement (mass/volume) 9.3 mg/dL 8.5-10.1 [facility] Carbon dioxide measurementOr dered By: Alex Kaur on 11-20-2024 Carbon dioxide measurement 33.0 mmol/L High 21.0-32.0 [facility] Chest 1 View (Portable)on Chest 1 View (Portable) Normal [facility] Chloride measurementOrdered By: Alex Kaur on 11-20-2024 Chloride measurement 102 mmol/L 98-107 [facility] Comprehensive Metabolic Prof ilon 11-20-2024 Albumin [Mass/Vol] 2.9 g/dL Low 3.2-5.0 [facility] Comment on above: Performed By: #### L 500.4050, L100.0100 ####[facility] [address] [place], [address] Albumin/Globulin [Mass ratio] 0.9 {ratio} Normal 0.9-2.4 [facility] Comment on above: Performed By: #### L 500.4050, L100.0100 ####[facility] [address] [place], [address] ALK P 71 U/L Normal 45-117 [facility] Comment on above: Performed By: #### L 500.4050, L100.0100 ####[facility] [address] [place], [address] ALT [Catalytic activity/Vol] 17 U/L Normal 13-56 [facility] Comment on above: Performed By: #### L 500.4050, L100.0100 ####[facility] [address] [place], [address] AST [Catalytic activity/Vol] 14 U/L Low 15-37 [facility] Comment on above: Performed By: #### L 500.4050, L100.0100 ####[facility] [address] [place], [address] Bilirubin [Mass/Vol] 0.30 mg/dL Normal 0.20-1.00 [facility] Comment on above: Result Comment: For patients on eltrombopag therapy, use of Dimension [place] TBIL is not recommended. Performed By: #### L 500.4050, L100.0100 ####[facility] [address] [place], [address] BUN/CRE 8.1 RATIO Low 10-20 [facility] Comment on above: Performed By: #### L 500.4050, L100.0100 ####[facility] [address] [place], [address] CA,Total 9.3 mg/dL Normal 8.5-10.1 [facility] Comment on above: Performed By: #### L 500.4050, L100.0100 ####[facility] [address] [place], [address] Chloride [Moles/Vol] 102 mmol/L Normal 98-107 [facility] Comment on above: Performed By: #### L 500.4050, L100.0100 ####[facility] [address] [place], [address] CO2 [Moles/Vol] 33.0 mmol/L High 21.0-32.0 [facility] Comment on above: Performed By: #### L 500.4050, L100.0100 ####[facility] [address] [place], [address] Creatinine [Mass/Vol] 2.85 mg/dL High 0.55-1.02 [facility] Comment on above: Result Comment: The validity of the calculated GFR GFRAA in patients over70 years has not been determined. Clinical correlation isessential. Performed By: #### L 500.4050, L100.0100 ####[facility] [address] [place], [address] ECRCL 15.85 ml/min Normal [facility] Comment on above: Performed By: #### L 500.4050, L100.0100 ####[facility] [address] [place], [address] EST GFR - AA 21 mL/min Low >60 [facility] Comment on above: Result Comment: Afri can Cameroonian GFR Calc Performed By: #### L 500.4050, L100.0100 ####[facility] [address] [place], [address] GAP 2 Low 5-15 [facility] Comment on above: Performed By: #### L 500.4050, L100.0100 ####[facility] [address] [place], [address] GFR/1.73 sq M.predicted among non-blacks MDRD (S/P/Bld) [Vol rate/Area] 18 mL/min/{1.73_m2} Low >60 [facility] Comment on above: Result Comment: Non- GFR Calc Performed By: #### L 500.4050, L100.0100 ####[facility] [address] [place], [address] Globulin (S) [Mass/Vol] 3.4 g/dL Normal 2.2-4.2 [facility] Comment on above: Performed By: #### L 500.4050, L100.0100 ####[facility] [address] [place], [address] Glucose [Mass/Vol] 105 mg/dL Normal 74-106 [facility] Comment on above: Result Comment: Fast ing Glucose result from 100 to 125 mg/dLsuggests IMPAIRED HOMEOSTASIS per A.D.A. criteria. Performed By: #### L 500.4050, L100.0100 ####[facility] [address] [place], [address] Potassium [Moles/Vol] 4.4 mmol/L Normal 3.5-5.1 [facility] Comment on above: Performed By: #### L 500.4050, L100.0100 ####[facility] [address] [place], [address] Sodium [Moles/Vol] 137 mmol/L Normal 136-145 [facility] Comment on above: Performed By: #### L 500.4050, L100.0100 ####[facility] [address] [place], [address] T PROT 6.3 g/dL Low 6.4-8.2 [facility] Comment on above: Performed By: #### L 500.4050, L100.0100 ####[facility] [address] [place], [address] Urea nitrogen [Mass/Vol] 23 mg/dL High 7-18 [facility] Comment on above: Performed By: #### L 500.4050, L100.0100 ####[facility] [address] [place], [address] Creatinine [Mass/Vol]Ordered By: Alex Kaur on 11-20-2024 Serum or plasma creatinine measurement (mass/volume) 2.85 mg/dL High 0.55-1.02 [facility] Emergency Department Summary on 11-20-2024 Emergency Department Summary Normal [facility] Eosinophil percentageOrdered By: Alex Kaur on 11-20-2024 Eosinophil percentage 7.6 % High 0-5 [facility] Erythrocyte distribution wid th (RBC) [Entitic vol]Ordered By: Alex Kaur on 11-20-2024 Erythrocyte distribution width standard deviation 42.2 fl 35.1-43.9 [facility] Erythrocyte distribution wid th (RBC) [Ratio]Ordered By: Aelx Kaur on 11-20-2024 Erythrocyte distribution width ratio 12.6 % 11.6-14.6 [facility] Estimated glomerular filtrat ion rate (GFR) AmericanOrdered By: Alex Kaur on 11-20-2024 Estimated glomerular filtration rate (GFR) 21 mL/min Low >60 [facility] Estimation of creatinine abdulkadir aranceOrdered By: Alex Kaur on 11-20-2024 Estimation of creatinine clearance 15.85 ml/min [facility] Glomerular filtration rate ( GFR) estimationOrdered By: Alex Kaur on 11-20-2024 Glomerular filtration rate (GFR) estimation 18 mL/min Low >60 [facility] Glucose measurementOrdered B y: Alex Kaur on 11-20-2024 Glucose measurement 105 mg/dL 74-106 [facility] Hematocrit Auto (Bld) [Volum e fraction]Ordered By: Alex Kaur on 11-20-2024 Automated blood hematocrit (percentage) 35.8 % Low 37-47 [facility] Hemoglobin measurementOrdere d By: Alex Kaur on 11-20-2024 Hemoglobin measurement 11.5 g/dL Low 12.0-15.0 [facility] Immature granulocytes/100 WB C Auto (Bld)Ordered By: Alex Kaur on 11-20-2024 Automated immature granulocyte percentage 0.500 % 0.0-0.9 [facility] L501.4020on 11-20-2024 TROPONIN-I HS 108 pg/mL High 3.0-54.0 [facility] Comment on above: Order Comment: 'TROP ' Serial specimen #1, #2 or #3: 2 Result Comment: Plea se Note: New Test Units and Gender Specific Reference Ranges. For more information see Policy Stat Procedure [place] High Sensitivity Troponin (TNIH) and attachments. Performed By: #### L 501.4020 ####[facility] [address] [place], [place], [address] TROPONIN-I HS 113 pg/mL High 3.0-54.0 [facility] Comment on above: Order Comment: 'TROP ' Serial specimen #1, #2 or #3: 1 Result Comment: Plea se Note: New Test Units and Gender Specific Reference Ranges. For more information see Policy Stat Procedure [place] High Sensitivity Troponin (TNIH) and attachments. Performed By: #### L 501.4020 ####[facility] [address] [place], [place], [address] Lymphocytes Auto (Unsp spec) [#/Vol]Ordered By: Alex Kaur on 11-20-2024 Absolute lymphocyte count 1.88 X10^3/uL 0.83-4.51 [facility] Lymphocytes/100 WBC Auto (Un sp spec)Ordered By: Alex Kaur on 11-20-2024 Automated lymphocyte count as percentage of total leukocytes 24.4 % 19-41 [facility] MCV (RBC) [Entitic vol]Order ed By: Alex Kaur on 11-20-2024 MCV (mean corpuscular volume) determination 94.7 fL 81-99 [facility] Mean corpuscular hemoglobin (MCH) determinationOrdered By: Alex Kaur on 11-20-2024 Mean corpuscular hemoglobin (MCH) determination 30.4 pg 27.0-32.0 [facility] Mean corpuscular hemoglobin concentration (MCHC) determinationOrdered By: Alex Kaur on 11-20-2024 Mean corpuscular hemoglobin concentration (MCHC) determination 32.1 g/dL 32-36 [facility] Mean platelet volume determi nationOrdered By: Alex Kaur on 11-20-2024 Mean platelet volume determination 9.1 fl 6.2-12.0 [facility] Monocyte percentageOrdered B y: Alex Kaur on 11-20-2024 Monocyte percentage 9.7 % 0-10 [facility] Neutrophil percentageOrdered By: Alex Kaur on 11-20-2024 Neutrophil percentage 57.2 % 47-70 [facility] No Panel InformationOrdered By: Alex Kaur on 11-20-2024 14 U/L Low 15-37 [facility] Nucleated red blood cell per centageOrdered By: Alex Kaur on 11-20-2024 Nucleated red blood cell percentage 0 % 0-5 [facility] Platelet countOrdered By: Benton Kaur on 11-20-2024 Platelet count 193 K/mm3 150-450 [facility] Potassium measurementOrdered By: Alex Kaur on 11-20-2024 Potassium measurement 4.4 mmol/L 3.5-5.1 [facility] RBC Auto (Bld) [#/Vol]Ordere d By: Alex Kaur on 11-20-2024 Automated blood erythrocyte count 3.78 M/mm3 Low 4.2-5.4 [facility] Serum anion gap measurementO rdered By: Alex Kaur on 11-20-2024 Serum anion gap measurement 2 Low 5-15 [facility] Serum globulin measurementOr dered By: Alex Kaur on 11-20-2024 Serum globulin measurement 3.4 g/dL 2.2-4.2 [facility] Sodium levelOrdered By: Alex Kaur on 11-20-2024 Sodium level 137 mmol/L 136-145 [facility] Total proteinOrdered By: Brooke Kaur on 11-20-2024 Total protein 6.3 g/dL Low 6.4-8.2 [facility] Troponin IOrdered By: Alex vidales on 11-20-2024 Troponin I 108 pg/mL High 3.0-54.0 [facility] Urea nitrogen [Mass/Vol]Orde red By: Alex Kaur on 11-20-2024 Serum or plasma urea nitrogen measurement (mass/volume) 23 mg/dL High 05-20 [facility] White blood cell (WBC) count Ordered By: Alex Kaur on 11-20-2024 White blood cell (WBC) count 7.7 K/mm3 4.4-11.0 [facility] Basic Metabolic Profile (BMP )on 11-04-2024 BUN Normal 05-20 [facility] Comment on above: Order Comment: 1Y Result Comment: PT. DISCHARGED Performed By: #### L 500.2500, L100.0100 ####[facility] [address] [place], [address] BUN/CRE Normal 10-20 [facility] Comment on above: Order Comment: 1Y Result Comment: PT. DISCHARGED Performed By: #### L 500.2500, L100.0100 ####[facility] [address] [place], [address] CA,Total Normal 8.5-10.1 [facility] Comment on above: Order Comment: 1Y Result Comment: PT. DISCHARGED Performed By: #### L 500.2500, L100.0100 ####[facility] [address] [place], [address] CL Normal 98-107 [facility] Comment on above: Order Comment: 1Y Result Comment: PT. DISCHARGED Performed By: #### L 500.2500, L100.0100 ####[facility] [address] [place], [address] CO2 Normal 21.0-32.0 [facility] Comment on above: Order Comment: 1Y Result Comment: PT. DISCHARGED Performed By: #### L 500.2500, L100.0100 ####[facility] [address] [place], [address] CREAT,SERUM Normal 0.55-1.02 [facility] Comment on above: Order Comment: 1Y Result Comment: PT. DISCHARGED Performed By: #### L 500.2500, L100.0100 ####[facility] [address] [place], [address] EST GFR Normal >60 [facility] Comment on above: Order Comment: 1Y Result Comment: PT. DISCHARGED Performed By: #### L 500.2500, L100.0100 ####[facility] [address] [place], [address] EST GFR - AA Normal >60 [facility] Comment on above: Order Comment: 1Y Result Comment: PT. DISCHARGED Performed By: #### L 500.2500, L100.0100 ####[facility] [address] [place], [address] GAP Normal 5-15 [facility] Comment on above: Order Comment: 1Y Result Comment: PT. DISCHARGED Performed By: #### L 500.2500, L100.0100 ####[facility] [address] [place], [address] GLU Normal 74-106 [facility] Comment on above: Order Comment: 1Y Result Comment: PT. DISCHARGED Performed By: #### L 500.2500, L100.0100 ####[facility] [address] [place], [address] Potassium Normal 3.5-5.1 [facility] Comment on above: Order Comment: 1Y Result Comment: PT. DISCHARGED Performed By: #### L 500.2500, L100.0100 ####[facility] [address] [place], [address] Basic Metabolic Profile (BMP) Normal 136-145 [facility] Comment on above: Order Comment: 1Y Result Comment: PT. DISCHARGED Performed By: #### L 500.2500, L100.0100 ####[facility] [address] [place], [address] CBC W/Diff, Automatedon 01-0 Absolute Neut Normal 2.0-7.7 [facility] Comment on above: Result Comment: PT D ISCHARGED Performed By: #### L 500.2500, L100.0100 ####[facility] [address] [place], [address] HCT Normal 37-47 [facility] Comment on above: Result Comment: PT D ISCHARGED Performed By: #### L 500.2500, L100.0100 ####[facility] [address] [place], [address] HGB Normal 12.0-15.0 [facility] Comment on above: Result Comment: PT D ISCHARGED Performed By: #### L 500.2500, L100.0100 ####[facility] [address] [place], [address] MCH Normal 27.0-32.0 [facility] Comment on above: Result Comment: PT D ISCHARGED Performed By: #### L 500.2500, L100.0100 ####[facility] [address] [place], [address] MCHC Normal 32-36 [facility] Comment on above: Result Comment: PT D ISCHARGED Performed By: #### L 500.2500, L100.0100 ####[facility] [address] [place], [address] MCV Normal 81-99 [facility] Comment on above: Result Comment: PT D ISCHARGED Performed By: #### L 500.2500, L100.0100 ####[facility] [address] [place], [address] NEUT% Normal 47-70 [facility] Comment on above: Result Comment: PT D ISCHARGED Performed By: #### L 500.2500, L100.0100 ####[facility] [address] [place], [address] PLT Normal 150-450 [facility] Comment on above: Result Comment: PT D ISCHARGED Performed By: #### L 500.2500, L100.0100 ####[facility] [address] [place], [address] RBC Normal 4.2-5.4 [facility] Comment on above: Result Comment: PT D ISCHARGED Performed By: #### L 500.2500, L100.0100 ####[facility] [address] [place], [address] RDW CV Normal 11.6-14.6 [facility] Comment on above: Result Comment: PT D ISCHARGED Performed By: #### L 500.2500, L100.0100 ####[facility] [address] [place], [address] RDW SD Normal 35.1-43.9 [facility] Comment on above: Result Comment: PT D ISCHARGED Performed By: #### L 500.2500, L100.0100 ####[facility] [address] [place], [address] WBC Normal 4.4-11.0 [facility] Comment on above: Result Comment: PT D ISCHARGED Performed By: #### L 500.2500, L100.0100 ####[facility] [address] [place], [address] Pulmonary Visit Reporton Pulmonary Visit Report Normal [facility] Dialysis Vein Map PRE-OP ADEBAYO ATon 11-02-2024 Dialysis Vein Map PRE-OP BILAT Normal [facility] Chest without Contraston Chest without Contrast Normal [facility] Endocrinology Visit Reporton 10-07-2024 Endocrinology Visit Report Normal [facility] Progress Noteon 08-31-2024 Progress Note Patient seen by me a t [facility]. Complete documentation including history with assessment and plan were documented in [facility] EMR. This encounter is for billing only. Normal [facility] Progress Noteon 08-27-2024 Progress Note Patient seen by me a t [facility]. Complete documentation including history with assessment and plan were documented in [facility] EMR. This encounter is for billing only. Normal [facility] Progress Noteon 08-25-2024 Progress Note Patient seen by me a t [facility]. Complete documentation including history with assessment and plan were documented in [facility] EMR. This encounter is for billing only. Normal [facility] 30on 08-24-2024 30 [facility] [id number] 08-24-2024 [id number] [facility] [id number] [facility] [id number] [facility] T[facility]. [facility] [id number] Auth obtained for SR H. SW messaged to set up transport, IT HELP DESK TECHNICIAN messaged to send orders and MAR. [facility] BASIC METABOLIC PANELon 10-2 Anion gap [Moles/Vol] 6 mmol/L Normal 3-13 [facility] Comment on above: Performed By: #### L AB113, LAB15, [id number] ####Manufacturing Helper: MARY SOTELO ([phone])[facility] ([address] Calcium [Mass/Vol] 7.3 mg/dL Low 8.4-10.4 [facility] Comment on above: Performed By: #### L AB113, LAB15, [id number] ####Manufacturing Helper: MARY SOTELO ([phone])[facility] ([facility])[address] [place] [address] Chloride [Moles/Vol] 100 mmol/L Normal 98-107 [facility] Comment on above: Performed By: #### L AB113, LAB15, [id number] ####Manufacturing Helper: MARY SOTELO ([phone])[facility] [place] [address] CO2 [Moles/Vol] 25 mmol/L Normal 22-30 [facility] Comment on above: Performed By: #### L AB113, LAB15, [id number] ####Manufacturing Helper: MARY SOTELO ([phone])[facility] [place] [address] Creatinine [Mass/Vol] 2.15 mg/dL High 0.52-1.04 [facility] Comment on above: Performed By: #### L AB113, LAB15, [id number] ####Manufacturing Helper: MARY SOTELO ([phone])[facility] ([facility])[address] [place] [address] GLOMERULAR FILTRATION RATE ML/MIN/1.73 SQ M.PREDICTED 25.2 mL/min/1.73m*2 Low >60.0 [facility] Comment on above: Result Comment: Calc ulation based on the Chronic Kidney Disease Epidemiology Collaboration (CKD-EPI) equation refit without adjustment for race Performed By: #### L AB113, LAB15, [id number] ####Manufacturing Helper: MARY SOTELO ([phone])[facility] [place] [address] Glucose [Mass/Vol] 282 mg/dL High 70-100 [facility] Comment on above: Performed By: #### L AB113, LAB15, [id number] ####Manufacturing Helper: MARY SOTELO ([phone])[facility])[address] [place] [address] Potassium [Moles/Vol] 3.9 mmol/L Normal 3.5-5.1 [facility] Comment on above: Performed By: #### L AB113, LAB15, COR353 ####Manufacturing Helper: MARY SOTELO ([phone])[facility] [place] [address] Sodium [Moles/Vol] 130 mmol/L Low 135-145 [facility] Comment on above: Performed By: #### L AB113, LAB15, [id number] ####Manufacturing Helper: MARY SOTELO ([phone])[facility] [place] [address] Urea nitrogen [Mass/Vol] 20 mg/dL High 7-17 [facility] Comment on above: Performed By: #### L AB113, LAB15, OSI963 ####Manufacturing Helper: MARY SOTELO ([phone])[facility] [place] [address] Basic metabolic 1998 panelon 08-24-2024 Anion gap [Moles/Vol] 6 mmol/L 3 - 13 mmol/L [facility] Calcium [Mass/Vol] 7.3 mg/dL Low 8.4 - 10. 4 mg/dL [facility] Chloride [Moles/Vol] 100 mmol/L 98 - 10 7 mmol/L [facility] CO2 [Moles/Vol] 25 mmol/L 22 - 30 mmol/L [facility] Creatinine [Mass/Vol] 2.15 mg/dL High 0.52 - 1.04 mg/dL [facility] GFR/1.73 sq M.predicted (S/P/Bld) [Vol rate/Area] 25.2 mL/min Low - PINF [facility] Glucose [Mass/Vol] 282 mg/dL High 70 - 100 mg/dL [facility] Interpretation and review of laboratory results Abnormal [facility] Potassium [Moles/Vol] 3.9 mmol/L 3.5 - 5.1 mmol/L [facility] Sodium [Moles/Vol] 130 mmol/L Low 135 - 145 mmol/L [facility] Urea nitrogen [Mass/Vol] 20 mg/dL High 7 - 17 mg/dL [facility] CBC W Auto Differential pane l (Bld)on 08-24-2024 Basophils (Bld) [#/Vol] 0 10*3/uL 0.0 - 0.2 10*3/uL [facility] Basophils/100 WBC (Bld) 0.5 % 0.0 - 2.0 % [facility] Eosinophils (Bld) [#/Vol] 0.4 10*3/uL 0.0 - 0.5 10*3/uL [facility] Eosinophils/100 WBC (Bld) 7.2 % High 0.0 - 6.0 % [facility] Erythrocyte distribution width (RBC) [Ratio] 16.3 % High 11.5 - 15.0 % [facility] Hematocrit (Bld) [Volume fraction] 25.5 % Low 35.0 - 47.0 % [facility] Hemoglobin (Bld) [Mass/Vol] 8.2 g/dL Low 11.7 - 16.0 g/dL [facility] Immature granulocytes (Bld) [#/Vol] 0 10*3/uL NINF - 0.1 10*3/uL [facility] Immature granulocytes/100 WBC (Bld) 0.3 % 0.0 - 2.0 % [facility] Interpretation and review of laboratory results Abnormal [facility] Lymphocytes (Bld) [#/Vol] 1.1 10*3/uL 1.0 - 4.3 10*3/uL [facility] Lymphocytes/100 WBC (Bld) 18.6 % 15.0 - 45.0 % [facility] MCH (RBC) [Entitic mass] 29.1 pg 26.0 - 34.0 pg [facility] MCHC (RBC) [Mass/Vol] 32.2 % 30.5 - 36.0 % [facility] MCV (RBC) [Entitic vol] 90.4 fL 77.0 - 99.0 fL [facility] Monocytes (Bld) [#/Vol] 0.4 10*3/uL 0.0 - 0.9 10*3/uL [facility] Monocytes/100 WBC (Bld) 7.6 % 5.0 - 13.0 % [facility] Neutrophils (Bld) [#/Vol] 3.8 10*3/uL 1.8 - 7.5 10*3/uL [facility] Neutrophils/100 WBC (Bld) 65.8 % 38.0 - 82.0 % [facility] Nucleated RBC/100 WBC (Bld) [Ratio] 0 % [facility] Platelet mean volume (Bld) [Entitic vol] 10.6 fL 9.0 - 12.7 fL [facility] Platelets (Bld) [#/Vol] 198 10*3/uL 140 - 440 10*3/uL [facility] RBC (Bld) [#/Vol] 2.82 10*6/uL Low 3.80 - 5.2 0 10*6/uL [facility] WBC (Bld) [#/Vol] 5.8 10*3/uL 3.6 - 10.7 10*3/uL [facility] CBC WITH AUTO DIFFERENTIALon 08-24-2024 Basophils (Bld) [#/Vol] 0.0 10*3/uL Normal 0.0-0.2 [facility] Comment on above: Performed By: #### L [id number] ####Manufacturing Helper: MARY SOTELO ([phone])[facility])[address] [place] [address] Basophils/100 WBC (Bld) 0.5 % Normal 0.0-2.0 [facility] Comment on above: Performed By: #### L [id number] ####Manufacturing Helper: MARY SOTELO ([phone])[facility])[address] [place] [address] Eosinophils (Bld) [#/Vol] 0.4 10*3/uL Normal 0.0-0.5 [facility] Comment on above: Performed By: #### L [id number] ####Manufacturing Helper: MARY SOTELO ([phone])[facility])[address] [place] [address] Eosinophils/100 WBC (Bld) 7.2 % High 0.0-6.0 [facility] Comment on above: Performed By: #### L [id number] ####Manufacturing Helper: MARY SOTELO ([phone])[facility])[address] [place] [address] Erythrocyte distribution width (RBC) [Ratio] 16.3 % High 11.5-15.0 [facility] Comment on above: Performed By: #### L [id number] ####Manufacturing Helper: MARY SOTELO ([phone])[facility])[address] [place] [address] Hematocrit (Bld) [Volume fraction] 25.5 % Low 35.0-47.0 [facility] Comment on above: Performed By: #### L [id number] ####Manufacturing Helper: MARY SOTELO ([phone])[facility])[address] [place] [address] Hemoglobin (Bld) [Mass/Vol] 8.2 g/dL Low 11.7-16.0 [facility] Comment on above: Performed By: #### L [id number] ####Manufacturing Helper: MARY SOTELO ([phone])[facility])[address] [place] [address] IMMATURE GRANS % 0.3 % Normal 0.0-2.0 [facility] Comment on above: Performed By: #### L [id number] ####Manufacturing Helper: MARY SOTELO ([phone])[facility])[address] [place] [address] IMMATURE GRANS ABSOLUTE 0.0 10*3/uL Normal <0.1 [facility] Comment on above: Performed By: #### L [id number] ####Manufacturing Helper: MARY SOTELO ([phone])[facility])[address] [place] [address] Lymphocytes (Bld) [#/Vol] 1.1 10*3/uL Normal 1.0-4.3 [facility] Comment on above: Performed By: #### L [id number] ####Manufacturing Helper: MARY SOTELO ([phone])[facility])[address] [place] [address] Lymphocytes/100 WBC (Bld) 18.6 % Normal 15.0-45.0 [facility] Comment on above: Performed By: #### L [id number] ####Manufacturing Helper: MARY SOTELO ([phone])[facility])[address] [place] [address] MCH (RBC) [Entitic mass] 29.1 pg Normal 26.0-34.0 [facility] Comment on above: Performed By: #### L [id number] ####Manufacturing Helper: MARY SOTELO ([phone])[facility])[address] [place] [address] MCHC 32.2 % Normal 30.5-36.0 [facility] Comment on above: Performed By: #### L [id number] ####Manufacturing Helper: MARY SOTELO ([phone])[facility])[address] [place] [address] MCV (RBC) [Entitic vol] 90.4 fL Normal 77.0-99.0 [facility] Comment on above: Performed By: #### L [id number] ####Manufacturing Helper: MARY SOTELO ([phone])[facility])[address] [place] [address] Monocytes (Bld) [#/Vol] 0.4 10*3/uL Normal 0.0-0.9 [facility] Comment on above: Performed By: #### L [id number] ####Manufacturing Helper: MARY SOTELO ([phone])[facility])[address] [place] [address] Monocytes/100 WBC (Bld) 7.6 % Normal 5.0-13.0 [facility] Comment on above: Performed By: #### L [id number] ####Manufacturing Helper: MARY SOTELO ([phone])[facility])[address] [place] [address] NEUTROPHILS ABSOLUTE 3.8 10*3/uL Normal 1.8-7.5 [facility] Comment on above: Performed By: #### L [id number] ####Manufacturing Helper: MARY SOTELO ([phone])[facility])[address] [place] [address] Neutrophils/100 WBC (Bld) 65.8 % Normal 38.0-82.0 [facility] Comment on above: Performed By: #### L [id number] ####Manufacturing Helper: MARY [phone])[facility] ([facility])[address] [place] [address] NRBC 0.0 /100 WBCs Normal 0.0-2.0 [facility] Comment on above: Performed By: #### L [id number] ####Manufacturing Helper: MARY SOTELO ([phone])[facility] ([facility])[address] [place] [address] Platelet mean volume (Bld) [Entitic vol] 10.6 fL Normal 9.0-12.7 [facility] Comment on above: Performed By: #### L [id number] ####Manufacturing Helper: MARY SOTELO ([phone])[facility])[address] [place] [address] Platelets (Bld) [#/Vol] 198 10*3/uL Normal 140-440 [facility] Comment on above: Performed By: #### L [id number] ####Manufacturing Helper: MARY SOTELO ([phone])[facility] ([facility])[address] [place] [address] RBC (Bld) [#/Vol] 2.82 10*6/uL Low 3.80-5.20 [facility] Comment on above: Performed By: #### L [id number] ####Manufacturing Helper: MARY SOTELO ([phone])[facility])[address] [place] [address] WBC (Bld) [#/Vol] 5.8 10*3/uL Normal 3.6-10.7 [facility] Comment on above: Performed By: #### L [id number] ####Manufacturing Helper: MARY SOTELO ([phone])[facility])[address] [place] [address] Laboratory - Chemistry and C hemistry - challengeon 08-24-2024 Glucose [Mass/Vol] 293 mg/dL High 70 - 100 mg/dL [facility] Glucose [Mass/Vol] 219 mg/dL High 70 - 100 mg/dL [facility] Glucose [Mass/Vol] 277 mg/dL High 70 - 100 mg/dL [facility] Magnesium [Mass/Vol] 1.8 mg/dL 1.6 - 2 .3 mg/dL [facility] MAGNESIUMon 08-24-2024 Magnesium [Mass/Vol] 1.8 mg/dL Normal 1.6-2.3 [facility] Comment on above: Performed By: #### L AB113, LAB15, [id number] ####Manufacturing Helper: MARY SOTELO ([phone])[facility] ([facility])[address] [place] [address] Magnesium [Mass/Vol]on 08-24 Interpretation and review of laboratory results Normal [facility] No Panel Informationon 08-24 Interpretation and review of laboratory results Abnormal [facility] Interpretation and review of laboratory results Abnormal [facility] Interpretation and review of laboratory results Abnormal [facility] PHOSPHORUSon 08-24-2024 Phosphate [Mass/Vol] 1.8 mg/dL Low 2.5-4.5 [facility] Comment on above: Performed By: #### L AB113, LAB15, [id number] ####Manufacturing Helper: MARY SOTELO ([phone])[facility] ([facility])[address] [place] [address] [place] Phosphate [Moles/Vol]on 08-04 Interpretation and review of laboratory results Abnormal [facility] Phosphate [Mass/Vol] 1.8 mg/dL Low 2.5 - 4 .5 mg/dL [facility] Progress Noteon 08-24-2024 Progress Note Normal [facility] BASIC METABOLIC PANELon 08-04 Anion gap [Moles/Vol] 5 mmol/L Normal 3-13 [facility] Comment on above: Performed By: #### L AB15, [id number], [id number] ####Manufacturing Helper: MARY SOTELO ([phone])[facility] ([facility])[address] [place] [address] Calcium [Mass/Vol] 7.3 mg/dL Low 8.4-10.4 [facility] Comment on above: Performed By: #### L AB15, REC876, FHQ494 ####Manufacturing Helper: MARY SOTELO ([phone])[facility] [place] [address] [place] Chloride [Moles/Vol] 99 mmol/L Normal 98-107 [facility] Comment on above: Performed By: #### L AB15, PDE717, [id number] ####Manufacturing Helper: MARY SOTELO ([phone])[facility] [place] [address] [place] CO2 [Moles/Vol] 27 mmol/L Normal 22-30 [facility] Comment on above: Performed By: #### L AB15, [id number], [id number] ####Manufacturing Helper: MARY SOTELO ([phone])[facility] ([facility])[address] [place] [address] Creatinine [Mass/Vol] 3.39 mg/dL High 0.52-1.04 [facility] Comment on above: Performed By: #### Dora AB15, [id number], [id number] ####Manufacturing Helper: MARY SOTELO ([phone])[facility] ([facility])[address] [place] [address] [place] GLOMERULAR FILTRATION RATE ML/MIN/1.73 SQ M.PREDICTED 14.6 mL/min/1.73m*2 Low >60.0 [facility] Comment on above: Result Comment: Calc ulation based on the Chronic Kidney Disease Epidemiology Collaboration (CKD-EPI) equation refit without adjustment for race Performed By: #### L AB15, [id number], RCM098 ####Manufacturing Helper: MARY SOTELO ([phone])[facility] [place] [address] [place] Glucose [Mass/Vol] 299 mg/dL High 70-100 [facility] Comment on above: Performed By: #### L AB15, [id number], KUP688 ####Manufacturing Helper: MARY SOTELO ([phone])[facility] ([facility])[address] [place] [address] [place] Potassium [Moles/Vol] 4.0 mmol/L Normal 3.5-5.1 [facility] Comment on above: Performed By: #### L AB15, [id number], [id number] ####Manufacturing Helper: MARY SOTELO ([phone])[facility] ([facility])[address] [place] [address] Sodium [Moles/Vol] 130 mmol/L Low 135-145 [facility] Comment on above: Performed By: #### L AB15, XFX367, IBL486 ####Manufacturing Helper: MARY SOTELO ([phone])[facility] ([facility])[address] [place] [address] Urea nitrogen [Mass/Vol] 37 mg/dL High 7-17 [facility] Comment on above: Performed By: #### L AB15, YNM747, NJL389 ####Manufacturing Helper: MARY SOTELO ([phone])[facility] [place] [address] Bacteria identified Cx Nom ( U)Ordered By: Kalia Gifford on 08-23-2024 Interpretation and review of laboratory results Abnormal [facility] Basic metabolic 1998 panelon 08-23-2024 Anion gap [Moles/Vol] 5 mmol/L 3 - 13 mmol/L [facility] Calcium [Mass/Vol] 7.3 mg/dL Low 8.4 - 10. 4 mg/dL [facility] Chloride [Moles/Vol] 99 mmol/L 98 - 10 7 mmol/L [facility] CO2 [Moles/Vol] 27 mmol/L 22 - 30 mmol/L [facility] Creatinine [Mass/Vol] 3.39 mg/dL High 0.52 - 1.04 mg/dL [facility] GFR/1.73 sq M.predicted (S/P/Bld) [Vol rate/Area] 14.6 mL/min Low - PINF [facility] Glucose [Mass/Vol] 299 mg/dL High 70 - 100 mg/dL [facility] Interpretation and review of laboratory results Abnormal [facility] Potassium [Moles/Vol] 4 mmol/L 3.5 - 5.1 mmol/L [facility] Sodium [Moles/Vol] 130 mmol/L Low 135 - 145 mmol/L [facility] Urea nitrogen [Mass/Vol] 37 mg/dL High 7 - 17 mg/dL [facility] CARECOORDon 08-23-2024 CARECOORD Normal [facility] CBC W Auto Differential pane l (Bld)on 08-23-2024 Basophils (Bld) [#/Vol] 0 10*3/uL 0.0 - 0.2 10*3/uL [facility] Basophils/100 WBC (Bld) 0.2 % 0.0 - 2.0 % [facility] Eosinophils (Bld) [#/Vol] 0.1 10*3/uL 0.0 - 0.5 10*3/uL [facility] Eosinophils/100 WBC (Bld) 1.1 % 0.0 - 6.0 % [facility] Erythrocyte distribution width (RBC) [Ratio] 15.9 % High 11.5 - 15.0 % [facility] Hematocrit (Bld) [Volume fraction] 25.5 % Low 35.0 - 47.0 % [facility] Hemoglobin (Bld) [Mass/Vol] 8.2 g/dL Low 11.7 - 16.0 g/dL [facility] Immature granulocytes (Bld) [#/Vol] 0 10*3/uL NINF - 0.1 10*3/uL [facility] Immature granulocytes/100 WBC (Bld) 0.5 % 0.0 - 2.0 % [facility] Interpretation and review of laboratory results Abnormal [facility] Lymphocytes (Bld) [#/Vol] 0.6 10*3/uL Low 1.0 - 4.3 10*3/uL [facility] Lymphocytes/100 WBC (Bld) 14.6 % Low 15.0 - 45.0 % [facility] MCH (RBC) [Entitic mass] 28.9 pg 26.0 - 34.0 pg [facility] MCHC (RBC) [Mass/Vol] 32.2 % 30.5 - 36.0 % [facility] MCV (RBC) [Entitic vol] 89.8 fL 77.0 - 99.0 fL [facility] Monocytes (Bld) [#/Vol] 0.3 10*3/uL 0.0 - 0.9 10*3/uL [facility] Monocytes/100 WBC (Bld) 7.3 % 5.0 - 13.0 % [facility] Neutrophils (Bld) [#/Vol] 3.4 10*3/uL 1.8 - 7.5 10*3/uL [facility] Neutrophils/100 WBC (Bld) 76.3 % 38.0 - 82.0 % [facility] Nucleated RBC/100 WBC (Bld) [Ratio] 0 % [facility] Platelet mean volume (Bld) [Entitic vol] 10.4 fL 9.0 - 12.7 fL [facility] Platelets (Bld) [#/Vol] 167 10*3/uL 140 - 440 10*3/uL [facility] RBC (Bld) [#/Vol] 2.84 10*6/uL Low 3.80 - 5.2 0 10*6/uL [facility] WBC (Bld) [#/Vol] 4.4 10*3/uL 3.6 - 10.7 10*3/uL [facility] CBC WITH AUTO DIFFERENTIALon 08-23-2024 Basophils (Bld) [#/Vol] 0.0 10*3/uL Normal 0.0-0.2 [facility] Comment on above: Performed By: #### L [id number] ####Manufacturing Helper: MARY SOTELO ([phone])[address] Basophils/100 WBC (Bld) 0.2 % Normal 0.0-2.0 [facility] Comment on above: Performed By: #### L [id number] ####Manufacturing Helper: MARY SOTELO ([phone])[facility])[address] [place] [address] [place] Eosinophils (Bld) [#/Vol] 0.1 10*3/uL Normal 0.0-0.5 [facility] Comment on above: Performed By: #### L [id number] ####Manufacturing Helper: MARY [phone])[facility])[address] [place] [address] [place] Eosinophils/100 WBC (Bld) 1.1 % Normal 0.0-6.0 [facility] Comment on above: Performed By: #### L [id number] ####Manufacturing Helper: MARY [phone])[facility])[address] [place] [address] Erythrocyte distribution width (RBC) [Ratio] 15.9 % High 11.5-15.0 [facility] Comment on above: Performed By: #### L [id number] ####Manufacturing Helper: MARY SOTELO ([phone])[facility])[address] [place] [address] Hematocrit (Bld) [Volume fraction] 25.5 % Low 35.0-47.0 [facility] Comment on above: Performed By: #### L [id number] ####Manufacturing Helper: MARY SOTELO ([phone])[facility])[address] [place] [address] Hemoglobin (Bld) [Mass/Vol] 8.2 g/dL Low 11.7-16.0 [facility] Comment on above: Performed By: #### L [id number] ####Manufacturing Helper: MARY SOTELO ([phone])[facility])[address] [place] [address] IMMATURE GRANS % 0.5 % Normal 0.0-2.0 [facility] Comment on above: Performed By: #### L [id number] ####Manufacturing Helper: MARY SOTELO ([phone])[facility])[address] [place] [address] IMMATURE GRANS ABSOLUTE 0.0 10*3/uL Normal <0.1 [facility] Comment on above: Performed By: #### L [id number] ####Manufacturing Helper: MARY SOTELO ([phone])[facility])[address] [place] [address] Lymphocytes (Bld) [#/Vol] 0.6 10*3/uL Low 1.0-4.3 [facility] Comment on above: Performed By: #### L [id number] ####Manufacturing Helper: MARY SOTELO ([phone])[facility])[address] [place] [address] [place] Lymphocytes/100 WBC (Bld) 14.6 % Low 15.0-45.0 [facility] Comment on above: Performed By: #### L [id number] ####Manufacturing Helper: MARY SOTELO ([phone])[facility])[address] [place] [address] MCH (RBC) [Entitic mass] 28.9 pg Normal 26.0-34.0 [facility] Comment on above: Performed By: #### L [id number] ####Manufacturing Helper: MARY SOTELO ([phone])[facility])[address] [place] [address] MCHC 32.2 % Normal 30.5-36.0 [facility] [facility] Comment on above: Performed By: #### L [id number] ####Manufacturing Helper: MARY SOTELO ([phone])[facility])[address] [place] [address] MCV (RBC) [Entitic vol] 89.8 fL Normal 77.0-99.0 [facility] Comment on above: Performed By: #### L [id number] ####Manufacturing Helper: MARY SOTELO ([phone])[facility])[address] [place] [address] Monocytes (Bld) [#/Vol] 0.3 10*3/uL Normal 0.0-0.9 [facility] Comment on above: Performed By: #### L [id number] ####Manufacturing Helper: MARY SOTELO ([phone])[facility])[address] [place] [address] Monocytes/100 WBC (Bld) 7.3 % Normal 5.0-13.0 [facility] Comment on above: Performed By: #### L [id number] ####Manufacturing Helper: MARY SOTELO ([phone])[facility])[address] [place] [address] NEUTROPHILS ABSOLUTE 3.4 10*3/uL Normal 1.8-7.5 [facility] Comment on above: Performed By: #### L [id number] ####Manufacturing Helper: MARY SOTELO ([phone])[facility] ([facility])[address] [place] [address] Neutrophils/100 WBC (Bld) 76.3 % Normal 38.0-82.0 [facility] Comment on above: Performed By: #### L [id number] ####Manufacturing Helper: MARY SOTELO ([phone])[facility] ([facility])[address] [place] [address] NRBC 0.0 /100 WBCs Normal 0.0-2.0 [facility] Comment on above: Performed By: #### L [id number] ####Manufacturing Helper: MARY SOTELO ([phone])[facility])[address] [place] [address] Platelet mean volume (Bld) [Entitic vol] 10.4 fL Normal 9.0-12.7 [facility] Comment on above: Performed By: #### L [id number] ####Manufacturing Helper: MARY SOTELO ([phone])[facility] ([facility])[address] [place] [address] Platelets (Bld) [#/Vol] 167 10*3/uL Normal 140-440 [facility] Comment on above: Performed By: #### L [id number] ####Manufacturing Helper: MARY SOTELO ([phone])[facility])[address] [place] [address] RBC (Bld) [#/Vol] 2.84 10*6/uL Low 3.80-5.20 [facility] Comment on above: Performed By: #### L [id number] ####Manufacturing Helper: MARY SOTELO ([phone])[facility])[address] [place] [address] WBC (Bld) [#/Vol] 4.4 10*3/uL Normal 3.6-10.7 [facility] Comment on above: Performed By: #### L [id number] ####Manufacturing Helper: MARY SOTELO ([phone])[facility] [place] [address] [place] Consulton 08-23-2024 Consult Normal [facility] HBV surface Ab IA Qnon 08-23 [facility] HBV surface Ag IA Qlon 08-23 Interpretation and review of laboratory results Normal [facility] HEPATITIS B SURFACE ANTIBODY on 08-23-2024 HEPATITIS B VIRUS SURFACE AB <8.0 Normal [facility] Comment on above: Result Comment: ORDE R COMMENTS:Interpretation:<8.0 Non-Reactive8.0-11.9 Equivocal>= 12.0 Ab DetectedNote: If an equivocal result is interpreted, an antibody status is unable to be determined. Collect new specimen if clinically indicated. Performed By: #### L [id number], [id number] ####Manufacturing Helper: MARY SOTELO ([phone])[facility] ([facility])[address] [place] [address] HEPATITIS B SURFACE ANTIGENo n 08-23-2024 HEPATITIS B VIRUS SURFACE AG Not detected Normal Not Detected [facility] Comment on above: Performed By: #### L [id number], [id number] ####Manufacturing Helper: MARY SOTELO ([phone])[facility] ([facility])[address] [place] [address] [place] IDNon 08-23-2024 IDN Normal [facility] IDN Normal [facility] Laboratory - Chemistry and C hemistry - challengeon 08-23-2024 Glucose [Mass/Vol] 126 mg/dL High 70 - 100 mg/dL [facility] Glucose [Mass/Vol] 166 mg/dL High 70 - 100 mg/dL [facility] Glucose [Mass/Vol] 129 mg/dL High 70 - 100 mg/dL [facility] Glucose [Mass/Vol] 287 mg/dL High 70 - 100 mg/dL [facility] Glucose [Mass/Vol] 304 mg/dL High 70 - 100 mg/dL [facility] Magnesium [Mass/Vol] 1.9 mg/dL 1.6 - 2 .3 mg/dL [facility] Laboratory - Microbiology an d Antimicrobial susceptibilityon 08-23-2024 HBV surface Ab IA Qn mIU/mL [facility] HBV surface Ag IA Ql Not detected Not Detected [facility] Laboratory - Microbiology an d Antimicrobial susceptibilityOrdered By: Kalia Gifford on 08-23-2024 Bacteria identified Cx Nom (U) Normal urogenital keven present [facility] Bacteria identified Cx Nom (U) 50,000-90,000 CFU/mL Abbi albicans Abnormal [facility] MAGNESIUMon 08-23-2024 Magnesium [Mass/Vol] 1.9 mg/dL Normal 1.6-2.3 [facility] Comment on above: Performed By: #### L AB15, [id number], [id number] ####Manufacturing Helper: MARY SOTELO ([phone])[facility] ([facility])[address] [place] [address] No Panel Informationon 08-23 Interpretation and review of laboratory results Abnormal [facility] Interpretation and review of laboratory results Abnormal [facility] Interpretation and review of laboratory results Abnormal [facility] Interpretation and review of laboratory results Abnormal [facility] Interpretation and review of laboratory results Abnormal [facility] Interpretation and review of laboratory results Normal [facility] Nursing Noteon 08-23-2024 Nursing Note Normal [facility] PHOSPHORUSon 08-23-2024 Phosphate [Mass/Vol] 2.5 mg/dL Normal 2.5-4.5 [facility] Comment on above: Performed By: #### L AB15, [id number], [id number] ####Manufacturing Helper: MARY SOTELO ([phone])[facility] ([facility])[address] [place] [address] Phosphate [Moles/Vol]on 08-04 Phosphate [Mass/Vol] 2.5 mg/dL 2.5 - 4 .5 mg/dL [facility] Progress Noteon 08-23-2024 Progress Note Normal [facility] Progress Note Normal [facility] Progress Note Normal [facility] Progress Note Normal [facility] US Kidneyon 08-23-2024 [facility] Radiology Study observation (narrative) [facility] US KidneyOrdered By: Daniel esquivel on 08-23-2024 [facility] Work Phone: US RENAL COMPLETEon 08-23-20 US RENAL COMPLETE Normal [facility] BASIC METABOLIC PANELon 08-04 Anion gap [Moles/Vol] 5 mmol/L Normal 3-13 [facility] Comment on above: Performed By: #### L AB103, LAB15, [id number] ####Manufacturing Helper: MARY SOTELO ([phone])[facility] ([facility])[address] [place] [address] Calcium [Mass/Vol] 7.3 mg/dL Low 8.4-10.4 [facility] Comment on above: Performed By: #### Dora AB103, LAB15, [id number] ####Manufacturing Helper: MARY SOTELO ([phone])[facility] ([facility])[address] [place] [address] Chloride [Moles/Vol] 97 mmol/L Low 98-107 [facility] Comment on above: Performed By: #### L AB103, LAB15, [id number] ####Manufacturing Helper: MARY SOTELO ([phone])[facility] ([facility])[address] [place] [address] CO2 [Moles/Vol] 28 mmol/L Normal 22-30 [facility] Comment on above: Performed By: #### L AB103, LAB15, [id number] ####Manufacturing Helper: MARY SOTELO ([phone])[facility] ([facility])[address] [place] [address] Creatinine [Mass/Vol] 3.04 mg/dL High 0.52-1.04 [facility] Comment on above: Performed By: #### L AB103, LAB15, [id number] ####Manufacturing Helper: MARY SOTELO ([phone])[facility])[address] [place] [address] [place] GLOMERULAR FILTRATION RATE ML/MIN/1.73 SQ M.PREDICTED 16.6 mL/min/1.73m*2 Low >60.0 [facility] Comment on above: Result Comment: Calc ulation based on the Chronic Kidney Disease Epidemiology Collaboration (CKD-EPI) equation refit without adjustment for race Performed By: #### Dora SONG, LAB15, [id number] ####Manufacturing Helper: MARY SOTELO ([phone])[facility] ([facility])[address] [place] [address] Glucose [Mass/Vol] 309 mg/dL High 70-100 [facility] Comment on above: Performed By: #### Dora SONG, LAB15, [id number] ####Manufacturing Helper: MARY SOTELO ([phone])[facility] ([facility])[address] [place] [address] Potassium [Moles/Vol] 3.4 mmol/L Low 3.5-5.1 [facility] Comment on above: Performed By: #### Dora SONG, LAB15, [id number] ####Manufacturing Helper: MARY SOTELO ([phone])[facility] ([facility])[address] [place] [address] Sodium [Moles/Vol] 130 mmol/L Low 135-145 [facility] Comment on above: Performed By: #### Dora SONG, LAB15, [id number] ####Manufacturing Helper: MARY SOTELO ([phone])[facility] ([facility])[address] [place] [address] Urea nitrogen [Mass/Vol] 28 mg/dL High 7-17 [facility] Comment on above: Performed By: #### Dora SONG, LAB15, [id number] ####Manufacturing Helper: MARY SOTELO ([phone])[facility])[address] [place] [address] Basic metabolic 1998 panelon 08-22-2024 Anion gap [Moles/Vol] 5 mmol/L 3 - 13 mmol/L [facility] Calcium [Mass/Vol] 7.3 mg/dL Low 8.4 - 10. 4 mg/dL [facility] Chloride [Moles/Vol] 97 mmol/L Low 98 - 10 7 mmol/L [facility] CO2 [Moles/Vol] 28 mmol/L 22 - 30 mmol/L [facility] Creatinine [Mass/Vol] 3.04 mg/dL High 0.52 - 1.04 mg/dL [facility] GFR/1.73 sq M.predicted (S/P/Bld) [Vol rate/Area] 16.6 mL/min Low - PINF [facility] Glucose [Mass/Vol] 309 mg/dL High 70 - 100 mg/dL [facility] Interpretation and review of laboratory results Abnormal [facility] Potassium [Moles/Vol] 3.4 mmol/L Low 3.5 - 5.1 mmol/L [facility] Sodium [Moles/Vol] 130 mmol/L Low 135 - 145 mmol/L [facility] Urea nitrogen [Mass/Vol] 28 mg/dL High 7 - 17 mg/dL [facility] CALCIUM, IONIZEDon CALCIUM IONIZED 3.90 mg/dL Low 4.30-5.20 [facility] Comment on above: Performed By: #### L [id number] ####Manufacturing Helper: MARY SOTELO ([phone])[facility] ([facility])[address] [place] [address] PH, IONIZED CALCIUM 7.42 Normal 7.31-7.46 [facility] Comment on above: Performed By: #### L AB54 ####Manufacturing Helper: MARY SOTELO ([phone])[address] CBC W Auto Differential pane l (Bld)on 08-22-2024 Basophils (Bld) [#/Vol] 0 10*3/uL 0.0 - 0.2 10*3/uL [facility] [employer] Basophils/100 WBC (Bld) 0.4 % 0.0 - 2.0 % [facility] Eosinophils (Bld) [#/Vol] 0.4 10*3/uL 0.0 - 0.5 10*3/uL [facility] [employer] Eosinophils/100 WBC (Bld) 7.7 % High 0.0 - 6.0 % [facility] Erythrocyte distribution width (RBC) [Ratio] 16.2 % High 11.5 - 15.0 % [facility] Hematocrit (Bld) [Volume fraction] 26.6 % Low 35.0 - 47.0 % [facility] Hemoglobin (Bld) [Mass/Vol] 8.6 g/dL Low 11.7 - 16.0 g/dL [facility] Immature granulocytes (Bld) [#/Vol] 0 10*3/uL NINF - 0.1 10*3/uL [facility] Immature granulocytes/100 WBC (Bld) 0.4 % 0.0 - 2.0 % [facility] Interpretation and review of laboratory results Abnormal [facility] Lymphocytes (Bld) [#/Vol] 0.9 10*3/uL Low 1.0 - 4.3 10*3/uL [facility] Lymphocytes/100 WBC (Bld) 18.2 % 15.0 - 45.0 % [facility] MCH (RBC) [Entitic mass] 29.8 pg 26.0 - 34.0 pg [facility] MCHC (RBC) [Mass/Vol] 32.3 % 30.5 - 36.0 % [facility] MCV (RBC) [Entitic vol] 92 fL 77.0 - 99.0 fL [facility] Monocytes (Bld) [#/Vol] 0.4 10*3/uL 0.0 - 0.9 10*3/uL [facility] Monocytes/100 WBC (Bld) 7.9 % 5.0 - 13.0 % [facility] Neutrophils (Bld) [#/Vol] 3.1 10*3/uL 1.8 - 7.5 10*3/uL [facility] Neutrophils/100 WBC (Bld) 65.4 % 38.0 - 82.0 % [facility] Nucleated RBC/100 WBC (Bld) [Ratio] 0 % [facility] Platelet mean volume (Bld) [Entitic vol] 10.1 fL 9.0 - 12.7 fL [facility] Platelets (Bld) [#/Vol] 161 10*3/uL 140 - 440 10*3/uL [facility] RBC (Bld) [#/Vol] 2.89 10*6/uL Low 3.80 - 5.2 0 10*6/uL [facility] WBC (Bld) [#/Vol] 4.8 10*3/uL 3.6 - 10.7 10*3/uL [facility] CBC WITH AUTO DIFFERENTIALon 08-22-2024 Basophils (Bld) [#/Vol] 0.0 10*3/uL Normal 0.0-0.2 [facility] Comment on above: Performed By: #### L [id number] ####Manufacturing Helper: MARY SOTELO ([phone])[facility])[address] [place] [address] Basophils/100 WBC (Bld) 0.4 % Normal 0.0-2.0 [facility] Comment on above: Performed By: #### L [id number] ####Manufacturing Helper: MARY SOTELO ([phone])[facility])[address] [place] [address] Eosinophils (Bld) [#/Vol] 0.4 10*3/uL Normal 0.0-0.5 [facility] Comment on above: Performed By: #### L [id number] ####Manufacturing Helper: MARY SOTELO ([phone])[facility])[address] [place] [address] Eosinophils/100 WBC (Bld) 7.7 % High 0.0-6.0 [facility] Comment on above: Performed By: #### L [id number] ####Manufacturing Helper: MARY SOTELO ([phone])[address] Erythrocyte distribution width (RBC) [Ratio] 16.2 % High 11.5-15.0 [facility] Comment on above: Performed By: #### L [id number] ####Manufacturing Helper: MARY SOTELO ([phone])[address] Hematocrit (Bld) [Volume fraction] 26.6 % Low 35.0-47.0 [facility] Comment on above: Performed By: #### L [id number] ####Manufacturing Helper: MARY SOTELO ([phone])[address] Hemoglobin (Bld) [Mass/Vol] 8.6 g/dL Low 11.7-16.0 [facility] Comment on above: Performed By: #### L [id number] ####Manufacturing Helper: MARY SOTELO ([phone])[facility])[address] [place] [address] IMMATURE GRANS % 0.4 % Normal 0.0-2.0 [facility] Comment on above: Performed By: #### L [id number] ####Manufacturing Helper: MARY SOTELO ([phone])[facility])[address] [place] [address] IMMATURE GRANS ABSOLUTE 0.0 10*3/uL Normal <0.1 [facility] Comment on above: Performed By: #### L [id number] ####Manufacturing Helper: MARY SOTELO ([phone])[address] Lymphocytes (Bld) [#/Vol] 0.9 10*3/uL Low 1.0-4.3 [facility] Comment on above: Performed By: #### L [id number] ####Manufacturing Helper: MARY SOTELO ([phone])[facility])[address] [place] [address] Lymphocytes/100 WBC (Bld) 18.2 % Normal 15.0-45.0 [facility] Comment on above: Performed By: #### L [id number] ####Manufacturing Helper: MARY SOTELO ([phone])[address] MCH (RBC) [Entitic mass] 29.8 pg Normal 26.0-34.0 [facility] Comment on above: Performed By: #### L [id number] ####Manufacturing Helper: MARY SOTELO ([phone])[address] MCHC 32.3 % Normal 30.5-36.0 [facility] Comment on above: Performed By: #### L [id number] ####Manufacturing Helper: MARY SOTELO ([phone])[facility])[address] [place] [address] MCV (RBC) [Entitic vol] 92.0 fL Normal 77.0-99.0 [facility] Comment on above: Performed By: #### L [id number] ####Manufacturing Helper: MARY SOTELO ([phone])[facility])[address] [place] [address] Monocytes (Bld) [#/Vol] 0.4 10*3/uL Normal 0.0-0.9 [facility] Comment on above: Performed By: #### L [id number] ####Manufacturing Helper: MARY SOTELO ([phone])[facility])[address] [place] [address] Monocytes/100 WBC (Bld) 7.9 % Normal 5.0-13.0 [facility] Comment on above: Performed By: #### L [id number] ####Manufacturing Helper: MARY SOTELO ([phone])[facility])[address] [place] [address] NEUTROPHILS ABSOLUTE 3.1 10*3/uL Normal 1.8-7.5 [facility] Comment on above: Performed By: #### L [id number] ####Manufacturing Helper: MARY SOTELO ([phone])[facility])[address] [place] [address] Neutrophils/100 WBC (Bld) 65.4 % Normal 38.0-82.0 [facility] Comment on above: Performed By: #### L [id number] ####Manufacturing Helper: MARY SOTELO ([phone])[facility])[address] [place] [address] NRBC 0.0 /100 WBCs Normal 0.0-2.0 [facility] Comment on above: Performed By: #### L [id number] ####Manufacturing Helper: MARY SOTELO ([phone])[facility])[address] [place] [address] Platelet mean volume (Bld) [Entitic vol] 10.1 fL Normal 9.0-12.7 [facility] Comment on above: Performed By: #### L [id number] ####Manufacturing Helper: MARY SOTELO ([phone])[facility] ([facility])[address] [place] [address] Platelets (Bld) [#/Vol] 161 10*3/uL Normal 140-440 [facility] Comment on above: Performed By: #### L [id number] ####Manufacturing Helper: MARY SOTELO ([phone])[facility] ([facility])[address] [place] [address] RBC (Bld) [#/Vol] 2.89 10*6/uL Low 3.80-5.20 [facility] Comment on above: Performed By: #### L [id number] ####Manufacturing Helper: MARY SOTELO ([phone])[facility] ([facility])[address] [place] [address] WBC (Bld) [#/Vol] 4.8 10*3/uL Normal 3.6-10.7 [facility] Comment on above: Performed By: #### L [id number] ####Manufacturing Helper: MARY SOTELO ([phone])[facility] ([facility])[address] [place] [address] Calcium.ionized [Moles/Vol]o n 08-22-2024 Calcium.ionized (Bld) [Moles/Vol] 3.9 mg/dL Low 4.30 - 5.20 mg/dL [facility] Interpretation and review of laboratory results Abnormal [facility] PH, IONIZED CALCIUM 7.42 7.31 - 7.46 [facility] IDNon 08-22-2024 IDN Normal [facility] Laboratory - Chemistry and C hemistry - challengeon 08-22-2024 Glucose [Mass/Vol] 257 mg/dL High 70 - 100 mg/dL [facility] Glucose [Mass/Vol] 255 mg/dL High 70 - 100 mg/dL [facility] Glucose [Mass/Vol] 287 mg/dL High 70 - 100 mg/dL [facility] Glucose [Mass/Vol] 310 mg/dL High 70 - 100 mg/dL [facility] Magnesium [Mass/Vol] 2 mg/dL 1.6 - 2 .3 mg/dL [facility] MAGNESIUMon 08-22-2024 Magnesium [Mass/Vol] 2.0 mg/dL Normal 1.6-2.3 [facility] Comment on above: Performed By: #### L AB103, LAB15, [id number] ####Manufacturing Helper: MARY SOTELO ([phone])[facility] ([facility])[address] [place] [address] Magnesium [Mass/Vol]on 08-22 Interpretation and review of laboratory results Normal [facility] No Panel Informationon 08-22 Interpretation and review of laboratory results Abnormal [facility] Interpretation and review of laboratory results Abnormal [facility] Interpretation and review of laboratory results Abnormal [facility] Interpretation and review of laboratory results Abnormal [facility] PHOSPHORUSon 08-22-2024 Phosphate [Mass/Vol] 2.3 mg/dL Low 2.5-4.5 [facility] Comment on above: Performed By: #### L AB103, LAB15, [id number] ####Manufacturing Helper: MARY SOTELO ([phone])[facility] ([facility])[address] [place] [address] [place] Phosphate [Moles/Vol]on 08-04 Interpretation and review of laboratory results Abnormal [facility] Phosphate [Mass/Vol] 2.3 mg/dL Low 2.5 - 4 .5 mg/dL [facility] Progress Noteon 08-22-2024 Progress Note Normal [facility] Progress Note Normal [facility] Progress Note Normal [facility] Progress Note Normal [facility] BASIC METABOLIC PANELon 08-03 Anion gap [Moles/Vol] 7 mmol/L Normal 3-13 [facility] Comment on above: Performed By: #### L AB113, LAB15, [id number] ####Manufacturing Helper: MARY SOTELO ([phone])[facility] ([facility])[address] [place] [address] [place] Calcium [Mass/Vol] 7.8 mg/dL Low 8.4-10.4 [facility] Comment on above: Performed By: #### Dora AB113, LAB15, [id number] ####Manufacturing Helper: MARY SOTELO ([phone])[facility] [place] [address] Chloride [Moles/Vol] 99 mmol/L Normal 98-107 [facility] Comment on above: Performed By: #### Dora AB113, LAB15, [id number] ####Manufacturing Helper: MARY SOTELO ([phone])[facility] [place] [address] CO2 [Moles/Vol] 27 mmol/L Normal 22-30 [facility] Comment on above: Performed By: #### Dora AB113, LAB15, [id number] ####Manufacturing Helper: MARY SOTELO ([phone])[facility] ([facility])[address] [place] [address] Creatinine [Mass/Vol] 4.52 mg/dL High 0.52-1.04 [facility] Comment on above: Performed By: #### Dora AB113, LAB15, [id number] ####Manufacturing Helper: MARY SOTELO ([phone])[facility] ([facility])[address] [place] [address] [place] GLOMERULAR FILTRATION RATE ML/MIN/1.73 SQ M.PREDICTED 10.3 mL/min/1.73m*2 Low >60.0 [facility] Comment on above: Result Comment: Calc ulation based on the Chronic Kidney Disease Epidemiology Collaboration (CKD-EPI) equation refit without adjustment for race Performed By: #### L AB113, LAB15, [id number] ####Manufacturing Helper: MARY SOTELO ([phone])[facility] ([facility])[address] [place] [address] [place] Glucose [Mass/Vol] 73 mg/dL Normal 70-100 [facility] Comment on above: Performed By: #### L AB113, LAB15, [id number] ####Manufacturing Helper: MARY [phone])[facility] [place] [address] Potassium [Moles/Vol] 3.2 mmol/L Low 3.5-5.1 [facility] Comment on above: Performed By: #### L AB113, LAB15, [id number] ####Manufacturing Helper: MARY SOTELO ([phone])[facility])[address] [place] [address] Sodium [Moles/Vol] 133 mmol/L Low 135-145 [facility] Comment on above: Performed By: #### L AB113, LAB15, [id number] ####Manufacturing Helper: MARY SOTELO ([phone])[facility])[address] [place] [address] Urea nitrogen [Mass/Vol] 47 mg/dL High 7-17 [facility] Comment on above: Performed By: #### L AB113, LAB15, [id number] ####Manufacturing Helper: MARY SOTELO ([phone])[facility] ([facility])[address] [place] [address] BLOOD GAS ARTERIALon 024 Base excess Calc (Bld) [Moles/Vol] 3.2 mmol/L High -3.0-3.0 [facility] Comment on above: Performed By: #### L AB76 ####Manufacturing Helper: MARY SOTELO ([phone])[facility] ([facility])[address] [place] [address] CO2 [Moles/Vol] 30.8 mmol/L High 23.0-27.0 [facility] Comment on above: Performed By: #### L [id number] ####Manufacturing Helper: MARY SOTELO ([phone])[facility])[address] [place] [address] HCO3 (Bld) [Moles/Vol] 29.2 mmol/L High 21.0-25.0 [facility] Comment on above: Performed By: #### L [id number] ####Manufacturing Helper: MARY SOTELO ([phone])[facility] ([facility])[address] [place] [address] Hemoglobin (Bld) [Mass/Vol] 10.2 g/dL Normal Screen only [facility] Comment on above: Performed By: #### L [id number] ####Manufacturing Helper: MARY SOTELO ([phone])[facility])[address] [place] [address] OXYGEN SATURATION (%) IN ARTERIAL BLOOD 96.1 % Normal 95.0-100.0 [facility] Comment on above: Performed By: #### L [id number] ####Manufacturing Helper: MARY SOTELO ([phone])[facility])[address] [place] [address] PCO2 ARTERIAL 51.3 mm Hg High >35.0-<45.0 [facility] Comment on above: Performed By: #### L [id number] ####Manufacturing Helper: MARY SOTELO ([phone])[facility])[address] [place] [address] PH ARTERIAL 7.373 Normal 7.350-7.450 [facility] Comment on above: Performed By: #### L [id number] ####Manufacturing Helper: MARY SOTELO ([phone])[facility])[address] [place] [address] PO2 ARTERIAL 85.9 mm Hg Normal 80.0-100.0 [facility] Comment on above: Performed By: #### L [id number] ####Manufacturing Helper: MARY SOTELO ([phone])[facility])[address] [place] [address] SOURCE OF OXYGEN CPAP Normal [facility] Comment on above: Result Comment: 30% Performed By: #### L [id number] ####Manufacturing Helper: MARY SOTELO ([phone])[facility])[address] [place] [address] Base excess Calc (Bld) [Moles/Vol] 0.4 mmol/L Normal -3.0-3.0 [facility] Comment on above: Performed By: #### L [id number] ####Manufacturing Helper: MARY SOTELO ([phone])[facility] [place] [address] CO2 [Moles/Vol] 29.5 mmol/L High 23.0-27.0 [facility] Comment on above: Performed By: #### L [id number] ####Manufacturing Helper: MARY SOTELO ([phone])[facility] [place] [address] HCO3 (Bld) [Moles/Vol] 27.7 mmol/L High 21.0-25.0 [facility] Comment on above: Performed By: #### L [id number] ####Manufacturing Helper: MARY SOTELO ([phone])[facility] ([facility])[address] [place] [address] Hemoglobin (Bld) [Mass/Vol] 9.8 g/dL Normal Screen only [facility] Comment on above: Performed By: #### L [id number] ####Manufacturing Helper: MARY SOTELO ([phone])[facility] ([facility])[address] [place] [address] OXYGEN SATURATION (%) IN ARTERIAL BLOOD 96.6 % Normal 95.0-100.0 [facility] Comment on above: Performed By: #### L [id number] ####Manufacturing Helper: MARY SOTELO ([phone])[facility] ([facility])[address] [place] [address] PCO2 ARTERIAL 59.5 mm Hg High >35.0-<45.0 [facility] Comment on above: Performed By: #### L [id number] ####Manufacturing Helper: MARY SOTELO ([phone])[facility] ([facility])[address] [place] [address] PH ARTERIAL 7.286 Low 7.350-7.450 [facility] Comment on above: Performed By: #### L [id number] ####Manufacturing Helper: MARY SOTELO ([phone])[facility] ([facility])[address] [place] [address] [place] PO2 ARTERIAL 88.7 mm Hg Normal 80.0-100.0 [facility] Comment on above: Performed By: #### L [id number] ####Manufacturing Helper: MARY SOTELO ([phone])[facility] ([facility])[address] [place] [address] SOURCE OF OXYGEN CPAP Normal [facility] Comment on above: Result Comment: 30% Performed By: #### L [id number] ####Manufacturing Helper: MARY SOTELO ([phone])[facility] ([facility])[address] [place] [address] Basic metabolic 1998 panelon 08-21-2024 Anion gap [Moles/Vol] 7 mmol/L 3 - 13 mmol/L [facility] Calcium [Mass/Vol] 7.8 mg/dL Low 8.4 - 10. 4 mg/dL [facility] Chloride [Moles/Vol] 99 mmol/L 98 - 10 7 mmol/L [facility] CO2 [Moles/Vol] 27 mmol/L 22 - 30 mmol/L [facility] Creatinine [Mass/Vol] 4.52 mg/dL High 0.52 - 1.04 mg/dL [facility] GFR/1.73 sq M.predicted (S/P/Bld) [Vol rate/Area] 10.3 mL/min Low - PINF [facility] Glucose [Mass/Vol] 73 mg/dL 70 - 100 mg/dL [facility] Interpretation and review of laboratory results Abnormal [facility] Potassium [Moles/Vol] 3.2 mmol/L Low 3.5 - 5.1 mmol/L [facility] Sodium [Moles/Vol] 133 mmol/L Low 135 - 145 mmol/L [facility] Urea nitrogen [Mass/Vol] 47 mg/dL High 7 - 17 mg/dL [facility] CARECOORDon 08-21-2024 CARECOORD Normal [facility] CBC W Auto Differential pane l (Bld)on 08-21-2024 Basophils (Bld) [#/Vol] 0 10*3/uL 0.0 - 0.2 10*3/uL [facility] Basophils/100 WBC (Bld) 0.3 % 0.0 - 2.0 % [facility] Eosinophils (Bld) [#/Vol] 0.6 10*3/uL High 0.0 - 0.5 10*3/uL [facility] Eosinophils/100 WBC (Bld) 9.4 % High 0.0 - 6.0 % [facility] Erythrocyte distribution width (RBC) [Ratio] 15.9 % High 11.5 - 15.0 % [facility] Hematocrit (Bld) [Volume fraction] 30.6 % Low 35.0 - 47.0 % [facility] Hemoglobin (Bld) [Mass/Vol] 9.9 g/dL Low 11.7 - 16.0 g/dL [facility] Immature granulocytes (Bld) [#/Vol] 0 10*3/uL NINF - 0.1 10*3/uL [facility] Immature granulocytes/100 WBC (Bld) 0.2 % 0.0 - 2.0 % [facility] Interpretation and review of laboratory results Abnormal [facility] Lymphocytes (Bld) [#/Vol] 1.2 10*3/uL 1.0 - 4.3 10*3/uL [facility] Lymphocytes/100 WBC (Bld) 19.6 % 15.0 - 45.0 % [facility] MCH (RBC) [Entitic mass] 29.6 pg 26.0 - 34.0 pg [facility] MCHC (RBC) [Mass/Vol] 32.4 % 30.5 - 36.0 % [facility] MCV (RBC) [Entitic vol] 91.3 fL 77.0 - 99.0 fL [facility] Monocytes (Bld) [#/Vol] 0.5 10*3/uL 0.0 - 0.9 10*3/uL [facility] Monocytes/100 WBC (Bld) 7.6 % 5.0 - 13.0 % [facility] Neutrophils (Bld) [#/Vol] 3.9 10*3/uL 1.8 - 7.5 10*3/uL [facility] Neutrophils/100 WBC (Bld) 62.9 % 38.0 - 82.0 % [facility] Nucleated RBC/100 WBC (Bld) [Ratio] 0 % [facility] Platelet mean volume (Bld) [Entitic vol] 10.5 fL 9.0 - 12.7 fL [facility] Platelets (Bld) [#/Vol] 157 10*3/uL 140 - 440 10*3/uL [facility] RBC (Bld) [#/Vol] 3.35 10*6/uL Low 3.80 - 5.2 0 10*6/uL [facility] WBC (Bld) [#/Vol] 6.2 10*3/uL 3.6 - 10.7 10*3/uL [facility] CBC WITH AUTO DIFFERENTIALon 08-21-2024 Basophils (Bld) [#/Vol] 0.0 10*3/uL Normal 0.0-0.2 [facility] Comment on above: Performed By: #### L [id number] ####Manufacturing Helper: MARY SOTELO ([phone])[facility])[address] [place] [address] Basophils/100 WBC (Bld) 0.3 % Normal 0.0-2.0 [facility] Comment on above: Performed By: #### L [id number] ####Manufacturing Helper: MARY SOTELO ([phone])[facility])[address] [place] [address] Eosinophils (Bld) [#/Vol] 0.6 10*3/uL High 0.0-0.5 [facility] Comment on above: Performed By: #### L [id number] ####Manufacturing Helper: MARY SOTELO ([phone])[facility])[address] [place] [address] Eosinophils/100 WBC (Bld) 9.4 % High 0.0-6.0 [facility] Comment on above: Performed By: #### L [id number] ####Manufacturing Helper: MARY SOTELO ([phone])[facility])[address] [place] [address] Erythrocyte distribution width (RBC) [Ratio] 15.9 % High 11.5-15.0 [facility] Comment on above: Performed By: #### L [id number] ####Manufacturing Helper: MARY SOTELO ([phone])[facility])[address] [place] [address] Hematocrit (Bld) [Volume fraction] 30.6 % Low 35.0-47.0 [facility] Comment on above: Performed By: #### L [id number] ####Manufacturing Helper: MARY SOTELO ([phone])[facility])[address] [place] [address] Hemoglobin (Bld) [Mass/Vol] 9.9 g/dL Low 11.7-16.0 [facility] Comment on above: Performed By: #### L [id number] ####Manufacturing Helper: MARY SOTELO ([phone])[facility])[address] [place] [address] IMMATURE GRANS % 0.2 % Normal 0.0-2.0 [facility] Comment on above: Performed By: #### L [id number] ####Manufacturing Helper: MARY SOTELO ([phone])[facility])[address] [place] [address] IMMATURE GRANS ABSOLUTE 0.0 10*3/uL Normal <0.1 [facility] Comment on above: Performed By: #### L [id number] ####Manufacturing Helper: MARY SOTELO ([phone])[facility])[address] [place] [address] Lymphocytes (Bld) [#/Vol] 1.2 10*3/uL Normal 1.0-4.3 [facility] Comment on above: Performed By: #### L [id number] ####Manufacturing Helper: MARY SOTELO ([phone])[facility])[address] [place] [address] Lymphocytes/100 WBC (Bld) 19.6 % Normal 15.0-45.0 [facility] Comment on above: Performed By: #### L [id number] ####Manufacturing Helper: MARY SOTELO ([phone])[facility])[address] [place] [address] MCH (RBC) [Entitic mass] 29.6 pg Normal 26.0-34.0 [facility] Comment on above: Performed By: #### L [id number] ####Manufacturing Helper: MARY SOTELO ([phone])[facility])[address] [place] [address] MCHC 32.4 % Normal 30.5-36.0 [facility] Comment on above: Performed By: #### L [id number] ####Manufacturing Helper: MARY SOTELO ([phone])[facility])[address] [place] [address] MCV (RBC) [Entitic vol] 91.3 fL Normal 77.0-99.0 [facility] Comment on above: Performed By: #### L [id number] ####Manufacturing Helper: MARY SOTELO ([phone])[facility])[address] [place] [address] Monocytes (Bld) [#/Vol] 0.5 10*3/uL Normal 0.0-0.9 [facility] Comment on above: Performed By: #### L [id number] ####Manufacturing Helper: MARY SOTELO ([phone])[facility] ([facility])[address] [place] [address] Monocytes/100 WBC (Bld) 7.6 % Normal 5.0-13.0 [facility] Comment on above: Performed By: #### L [id number] ####Manufacturing Helper: MARY SOTELO ([phone])[facility])[address] [place] [address] NEUTROPHILS ABSOLUTE 3.9 10*3/uL Normal 1.8-7.5 [facility] Comment on above: Performed By: #### L [id number] ####Manufacturing Helper: MARY SOTELO ([phone])[facility])[address] [place] [address] Neutrophils/100 WBC (Bld) 62.9 % Normal 38.0-82.0 [facility] Comment on above: Performed By: #### L [id number] ####Manufacturing Helper: MARY SOTELO ([phone])[facility])[address] [place] [address] NRBC 0.0 /100 WBCs Normal 0.0-2.0 [facility] Comment on above: Performed By: #### L [id number] ####Manufacturing Helper: MARY SOTELO ([phone])[facility])[address] [place] [address] Platelet mean volume (Bld) [Entitic vol] 10.5 fL Normal 9.0-12.7 [facility] Comment on above: Performed By: #### L [id number] ####Manufacturing Helper: MARY SOTELO ([phone])[facility])[address] [place] [address] Platelets (Bld) [#/Vol] 157 10*3/uL Normal 140-440 [facility] Comment on above: Performed By: #### L [id number] ####Manufacturing Helper: MARY SOTELO ([phone])[facility] ([facility])[address] [place] [address] RBC (Bld) [#/Vol] 3.35 10*6/uL Low 3.80-5.20 [facility] Comment on above: Performed By: #### L [id number] ####Manufacturing Helper: MARY SOTELO ([phone])[facility])[address] [place] [address] WBC (Bld) [#/Vol] 6.2 10*3/uL Normal 3.6-10.7 [facility] Comment on above: Performed By: #### L [id number] ####Manufacturing Helper: MARY SOTELO ([phone])[facility])[address] [place] [address] COMPLETE URINALYSISon 2023 BACTERIA (#/HPF) IN URINE Many Abnormal Negative [facility] Comment on above: Performed By: #### L [id number] ####Manufacturing Helper: MARY SOTELO ([phone])[facility])[address] [place] [address] BILIRUBIN, TOTAL PRESENCE IN URINE Negative Normal Negative [facility] Comment on above: Performed By: #### L [id number] ####Manufacturing Helper: MARY SOTELO ([phone])[facility] ([facility])[address] [place] [address] Clarity (U) Extra Turbid Abnormal Clear [facility] Comment on above: Performed By: #### L [id number] ####Manufacturing Helper: MARY SOTELO ([phone])[facility] ([facility])[address] [place] [address] Color (U) Yellow Normal Lt. Yellow [facility] Comment on above: Performed By: #### L [id number] ####Manufacturing Helper: MARY SOTELO ([phone])[facility])[address] [place] [address] GLUCOSE (MG/DL) IN URINE Normal Normal Normal (<70) [facility] Comment on above: Performed By: #### L [id number] ####Manufacturing Helper: MARY SOTELO ([phone])[facility] ([facility])[address] [place] [address] HEMOGLOBIN PRESENCE IN URINE 1.0 mg/dL Abnormal Negative [facility] Comment on above: Performed By: #### L [id number] ####Manufacturing Helper: MARY SOTELO ([phone])[facility] ([facility])[address] [place] [address] HYALINE CASTS (#/LPF) IN URINE SEDIMENT BY MICROSCOPY Negative Normal Negative [facility] Comment on above: Performed By: #### L [id number] ####Manufacturing Helper: MARY SOTELO ([phone])[facility] ([facility])[address] [place] [address] Ketones Ql (U) Negative Normal Negative [facility] Comment on above: Performed By: #### L [id number] ####Manufacturing Helper: MARY SOTELO ([phone])[facility] ([facility])[address] [place] [address] LEUKOCYTE ESTERASE PRESENCE IN URINE BY TEST STRIP 500 Bere/uL Abnormal Negative [facility] Comment on above: Performed By: #### L [id number] ####Manufacturing Helper: MARY SOTELO ([phone])[facility])[address] [place] [address] NITRITE PRESENCE IN URINE Negative Normal Negative [facility] Comment on above: Performed By: #### L [id number] ####Manufacturing Helper: MARY SOTELO ([phone])[facility] ([facility])[address] [place] [address] pH (U) 6.0 [pH] Normal 5.0-8.0 [facility] Comment on above: Performed By: #### L [id number] ####Manufacturing Helper: MARY SOTELO ([phone])[facility])[address] [place] [address] Protein (U) [Mass/Vol] 100 mg/dL Abnormal Negative [facility] Comment on above: Performed By: #### L [id number] ####Manufacturing Helper: MARY SOTELO ([phone])[facility] ([facility])[address] [place] [address] RBC (#/HPF) IN URINE SEDIMENT >100 Abnormal 0-2 [facility] Comment on above: Performed By: #### L [id number] ####Manufacturing Helper: MARY SOTELO ([phone])[facility])[address] [place] [address] Specific gravity (U) [Rel density] 1.009 Normal 1.005-1.030 [facility] Comment on above: Performed By: #### L [id number] ####Manufacturing Helper: MARY SOTELO ([phone])[facility] ([facility])[address] [place] [address] SQUAMOUS EPITHELIAL CELLS (#/HPF) IN URINE SEDIMENT Negative Normal 3-5 [facility] Comment on above: Performed By: #### L [id number] ####Manufacturing Helper: MARY SOTELO ([phone])[facility] ([facility])[address] [place] [address] [place] UROBILINOGEN (MG/DL) IN URINE Normal Normal Normal (0-1) [facility] Comment on above: Performed By: #### L [id number] ####Manufacturing Helper: MARY SOTELO ([phone])[facility] [place] [address] WBC (LEUKOCYTE) (#/HPF) IN URINE SEDIMENT >100 Abnormal 0-5 [facility] Comment on above: Performed By: #### L [id number] ####Manufacturing Helper: MARY SOTELO ([phone])[facility] [place] [address] [place] WBC (LEUKOCYTE) CLUMPS (#/HPF) IN URINE SEDIMENT Many Abnormal Negative [facility] Comment on above: Performed By: #### L [id number] ####Manufacturing Helper: MARY SOTELO ([phone])[facility] [place] [address] [place] YEAST (#/HPF) IN URINE Moderate Abnormal Negative [facility] Comment on above: Performed By: #### L [id number] ####Manufacturing Helper: MARY SOTELO ([phone])[facility] [place] [address] [place] GLUCOSE, RANDOMon 08-21-2024 Glucose [Mass/Vol] 27 mg/dL Critically low 70-100 [facility] Comment on above: Performed By: #### L [id number] ####Manufacturing Helper: MARY SOTELO ([phone])[facility] [place] [address] Glucose (Bld) [Mass/Vol]Orde red By: Madison Donaldson on 08-21-2024 Glucose [Mass/Vol] 27 mg/dL Critically low 70 - 10 0 mg/dL [facility] Interpretation and review of laboratory results Abnormal [facility] - Chemistry and C hemistry - challengeon 08-21-2024 Glucose [Mass/Vol] 228 mg/dL High 70 - 100 mg/dL [facility] Glucose [Mass/Vol] 123 mg/dL High 70 - 100 mg/dL [facility] Glucose [Mass/Vol] 110 mg/dL High 70 - 100 mg/dL [facility] Base excess Calc (Bld) [Moles/Vol] 3.2 mmol/L High -3.0 - 3.0 mmol/L [facility] CO2 (Bld) [Partial pressure] 51.3 mm[Hg] High - PINF [facility] CO2 [Moles/Vol] 30.8 mmol/L High 23.0 - 27.0 mmol/L [facility] HCO3 (Bld) [Moles/Vol] 29.2 mmol/L High 21.0 - 25.0 mmol/L [facility] Oxygen (Bld) [Partial pressure] 85.9 mm[Hg] [facility] pH (Bld) 7.373 [pH] 7.350 - 7.[address] [facility] Glucose [Mass/Vol] 103 mg/dL High 70 - 100 mg/dL [facility] Glucose [Mass/Vol] 106 mg/dL High 70 - 100 mg/dL [facility] Glucose [Mass/Vol] 128 mg/dL High 70 - 100 mg/dL [facility] Glucose [Mass/Vol] 166 mg/dL High 70 - 100 mg/dL [facility] Glucose [Mass/Vol] mg/dL Low 70 - 100 mg/dL [facility] Base excess Calc (Bld) [Moles/Vol] 0.4 mmol/L -3.0 - 3.0 mmol/L [facility] CO2 (Bld) [Partial pressure] 59.5 mm[Hg] High - PINF [facility] CO2 [Moles/Vol] 29.5 mmol/L High 23.0 - 27.0 mmol/L [facility] HCO3 (Bld) [Moles/Vol] 27.7 mmol/L High 21.0 - 25.0 mmol/L [facility] Oxygen (Bld) [Partial pressure] 88.7 mm[Hg] [facility] pH (Bld) 7.286 [pH] Low 7.350 - 7.450 [facility] Magnesium [Mass/Vol] 2.1 mg/dL 1.6 - 2 .3 mg/dL [facility] Laboratory - Hematology and Cell countson 08-21-2024 Hemoglobin (Bld) [Mass/Vol] 10.2 g/dL Screen only [facility] Hemoglobin (Bld) [Mass/Vol] 9.8 g/dL Screen only [facility] MAGNESIUMon 08-21-2024 Magnesium [Mass/Vol] 2.1 mg/dL Normal 1.6-2.3 [facility] Comment on above: Performed By: #### L [id number], [id number], [id number] ####Manufacturing Helper: MARY SOTELO ([phone])[facility] ([facility])[address] [place] [address] No Panel Informationon 08-21 Interpretation and review of laboratory results Abnormal [facility] Interpretation and review of laboratory results Abnormal [facility] Interpretation and review of laboratory results Abnormal [facility] Interpretation and review of laboratory results Abnormal [facility] Source [facility] Interpretation and review of laboratory results Abnormal [facility] Interpretation and review of laboratory results Abnormal [facility] Interpretation and review of laboratory results Abnormal [facility] Interpretation and review of laboratory results Abnormal [facility] Interpretation and review of laboratory results Abnormal [facility] Interpretation and review of laboratory results Abnormal [facility] Source Of Oxygen CPAP [facility] Interpretation and review of laboratory results Normal [facility] Nursing Noteon 08-21-2024 Nursing Note Normal [facility] PHOSPHORUSon 08-21-2024 Phosphate [Mass/Vol] 3.5 mg/dL Normal 2.5-4.5 [facility] Comment on above: Performed By: #### L [id number], [id number], [id number] ####Manufacturing Helper: MARY SOTELO ([phone])[facility] [place] [address] [place] Phosphate [Moles/Vol]on 08-03 Phosphate [Mass/Vol] 3.5 mg/dL 2.5 - 4 .5 mg/dL [facility] Progress Noteon 08-21-2024 Progress Note Normal [facility] Progress Note Normal [facility] Progress Note Normal [facility] URINE CULTUREon 08-21-2024 Bacteria identified Cx Nom (U) Normal [facility] Comment on above: Performed By: #### L [id number] ####Manufacturing Helper: MARY SOTELO ([phone])[address] Urinalysis complete panel (U )on 08-21-2024 Bacteria LM.HPF (Urine sed) [#/Area] Many Abnormal Negative /HPF [facility] Bilirubin Ql (U) Negative Negative mg/dL [facility] Clarity (U) Extra Turbid Abnormal Clear [facility] Color (U) Yellow Lt. Yellow [facility] Epithelial cells.squamous LM.HPF (Urine sed) [#/Area] Negative [facility] Gl[facility] Ql (U) Normal Normal (<70) mg/dL [facility] Hemoglobin Ql (U) 1.0 mg/dL Abnormal Negative [facility] Hyaline casts Auto (Urine sed) [#/Area] Negative Negative /LPF [facility] Interpretation and review of laboratory results Abnormal [facility] Ketones (U) [Mass/Vol] Negative Negat pawan mg/dL [facility] Leukocyte clumps LM.HPF (Urine sed) [#/Area] Many Abnormal Negative /HPF [facility] Leukocyte esterase Test strip Ql (U) 500 Abnormal Negative Bere/uL [facility] Nitrite Ql (U) Negative Negative [facility] th pH (U) 6.0 [pH] 5.0 - 8.0 pH [facility] Protein (U) [Mass/Vol] 100 mg/dL Abnormal Negative [facility] [facility] RBC LM.HPF (Urine sed) [#/Area] /[HPF] Abnormal [facility] Specific gravity (U) [Rel density] 1.009 1.005 - 1.030 [facility] Urobilinogen (U) [Mass/Vol] Normal Normal (0-1) mg/dL [facility] WBC LM.HPF (Urine sed) [#/Area] /[HPF] Abnormal [facility] Yeast.budding LM.HPF (Urine sed) [#/Area] Moderate Abnormal Negative /HPF [facility] BASIC METABOLIC PANELon 08-03 Anion gap [Moles/Vol] 8 mmol/L Normal 3-13 [facility] Comment on above: Performed By: #### L AB15, [id number], [id number] ####Manufacturing Helper: MARY SOTELO ([phone])[facility] [place] [address] [place] Calcium [Mass/Vol] 7.8 mg/dL Low 8.4-10.4 [facility] Comment on above: Performed By: #### L AB15, [id number], [id number] ####Manufacturing Helper: MARY SOTELO ([phone])[facility] [place] [address] [place] Chloride [Moles/Vol] 97 mmol/L Low 98-107 [facility] Comment on above: Performed By: #### L AB15, [id number], [id number] ####Manufacturing Helper: MARY SOTELO ([phone])[facility] [place] [address] CO2 [Moles/Vol] 24 mmol/L Normal 22-30 [facility] Comment on above: Performed By: #### Dora ABDante, [id number], [id number] ####Manufacturing Helper: MARY SOTELO ([phone])[facility] [place] [address] Creatinine [Mass/Vol] 3.58 mg/dL High 0.52-1.04 [facility] Comment on above: Performed By: #### L AB15, [id number], [id number] ####Manufacturing Helper: MARY SOTELO ([phone])[facility] [place] [address] [place] GLOMERULAR FILTRATION RATE ML/MIN/1.73 SQ M.PREDICTED 13.6 mL/min/1.73m*2 Low >60.0 [facility] Comment on above: Result Comment: Calc ulation based on the Chronic Kidney Disease Epidemiology Collaboration (CKD-EPI) equation refit without adjustment for race Performed By: #### L AB15, [id number], [id number] ####Manufacturing Helper: MARY SOTELO ([phone])[facility] [place] [address] [place] Glucose [Mass/Vol] 150 mg/dL High 70-100 [facility] Comment on above: Performed By: #### L AB15, [id number], [id number] ####Manufacturing Helper: MARY SOTELO ([phone])[facility] ([facility])[address] [place] [address] Potassium [Moles/Vol] 4.0 mmol/L Normal 3.5-5.1 [facility] Comment on above: Performed By: #### L AB15, [id number], [id number] ####Manufacturing Helper: MARY SOTELO ([phone])[facility] ([facility])[address] [place] [address] Sodium [Moles/Vol] 129 mmol/L Low 135-145 [facility] Comment on above: Performed By: #### L AB15, [id number], [id number] ####Manufacturing Helper: MARY SOTELO ([phone])[facility] ([facility])[address] [place] [address] Urea nitrogen [Mass/Vol] 41 mg/dL High 7-17 [facility] Comment on above: Performed By: #### L AB15, [id number], [id number] ####Manufacturing Helper: MARY SOTELO ([phone])[facility] ([facility])[address] [place] [address] BLOOD GAS ARTERIALon 08-20- 024 Base excess Calc (Bld) [Moles/Vol] -0.7000 mmol/L Normal -3.0-3.0 [facility] Comment on above: Performed By: #### L [id number] ####Manufacturing Helper: MARY SOTELO ([phone])[facility] ([facility])[address] [place] [address] [place] CO2 [Moles/Vol] 28.6 mmol/L High 23.0-27.0 [facility] Comment on above: Performed By: #### L [id number] ####Manufacturing Helper: MARY SOTELO ([phone])[facility] ([facility])[address] [place] [address] HCO3 (Bld) [Moles/Vol] 26.8 mmol/L High 21.0-25.0 [facility] Comment on above: Performed By: #### L AB76 ####Manufacturing Helper: MARY SOTELO ([phone])[facility] ([facility])[address] [place] [address] Hemoglobin (Bld) [Mass/Vol] 10.3 g/dL Normal Screen only [facility] Comment on above: Performed By: #### L [id number] ####Manufacturing Helper: MARY SOTELO ([phone])[facility])[address] [place] [address] OXYGEN SATURATION (%) IN ARTERIAL BLOOD 98.1 % Normal 95.0-100.0 [facility] Comment on above: Performed By: #### L [id number] ####Manufacturing Helper: MARY SOTELO ([phone])[facility] ([facility])[address] [place] [address] PCO2 ARTERIAL 59.2 mm Hg High >35.0-<45.0 [facility] Comment on above: Performed By: #### L [id number] ####Manufacturing Helper: MARY SOTELO ([phone])[facility] ([facility])[address] [place] [address] PH ARTERIAL 7.274 Low 7.350-7.450 [facility] Comment on above: Performed By: #### L [id number] ####Manufacturing Helper: MARY SOTELO ([phone])[facility] ([facility])[address] [place] [address] PO2 ARTERIAL 113.3 mm Hg High 80.0-100.0 [facility] Comment on above: Performed By: #### L [id number] ####Manufacturing Helper: MARY SOTELO ([phone])[facility] ([facility])[address] [place] [address] SOURCE OF OXYGEN 40% Oxygen Normal [facility] Comment on above: Performed By: #### L [id number] ####Manufacturing Helper: MARY SOTELO ([phone])[facility] ([facility])[address] [place] [address] Base excess Calc (Bld) [Moles/Vol] 0.2 mmol/L Normal -3.0-3.0 [facility] Comment on above: Performed By: #### L [id number] ####Manufacturing Helper: MARY SOTELO ([phone])[facility] ([facility])[address] [place] [address] CO2 [Moles/Vol] 30.7 mmol/L High 23.0-27.0 [facility] Comment on above: Performed By: #### L [id number] ####Manufacturing Helper: MARY SOTELO ([phone])[facility] ([facility])[address] [place] [address] HCO3 (Bld) [Moles/Vol] 28.6 mmol/L High 21.0-25.0 [facility] Comment on above: Performed By: #### L [id number] ####Manufacturing Helper: MARY SOTELO ([phone])[facility] ([facility])[address] [place] [address] Hemoglobin (Bld) [Mass/Vol] 10.5 g/dL Normal Screen only [facility] Comment on above: Performed By: #### L [id number] ####Manufacturing Helper: MARY SOTELO ([phone])[facility] ([facility])[address] [place] [address] OXYGEN SATURATION (%) IN ARTERIAL BLOOD 96.9 % Normal 95.0-100.0 [facility] Comment on above: Performed By: #### L [id number] ####Manufacturing Helper: MARY SOTELO ([phone])[facility] ([facility])[address] [place] [address] PCO2 ARTERIAL 67.9 mm Hg High >35.0-<45.0 [facility] Comment on above: Performed By: #### L [id number] ####Manufacturing Helper: MARY SOTELO ([phone])[facility] ([facility])[address] [place] [address] PH ARTERIAL 7.242 Low 7.350-7.450 [facility] Comment on above: Performed By: #### L [id number] ####Manufacturing Helper: MARY SOTELO ([phone])[facility] [place] [address] PO2 ARTERIAL 101.2 mm Hg High 80.0-100.0 [facility] Comment on above: Performed By: #### L [id number] ####Manufacturing Helper: MARY SOTELO ([phone])[facility] ([facility])[address] [place] [address] SOURCE OF OXYGEN 40% Oxygen Normal [facility] Comment on above: Performed By: #### L [id number] ####Manufacturing Helper: MARY SOTELO ([phone])[facility] ([facility])[address] [place] [address] Base excess Calc (Bld) [Moles/Vol] 0.5 mmol/L Normal -3.0-3.0 [facility] Comment on above: Performed By: #### L [id number] ####Manufacturing Helper: MARY SOTEOL ([phone])[facility] ([facility])[address] [place] [address] CO2 [Moles/Vol] 31.0 mmol/L High 23.0-27.0 [facility] Comment on above: Performed By: #### L [id number] ####Manufacturing Helper: MARY SOTELO ([phone])[facility] ([facility])[address] [place] [address] HCO3 (Bld) [Moles/Vol] 28.9 mmol/L High 21.0-25.0 [facility] Comment on above: Performed By: #### L [id number] ####Manufacturing Helper: MARY SOTELO ([phone])[facility] ([facility])[address] [place] [address] Hemoglobin (Bld) [Mass/Vol] 10.4 g/dL Normal Screen only [facility] Comment on above: Performed By: #### L [id number] ####Manufacturing Helper: MARY SOTELO ([phone])[facility] ([facility])[address] [place] [address] OXYGEN SATURATION (%) IN ARTERIAL BLOOD 68.2 % Low 95.0-100.0 [facility] Comment on above: Performed By: #### L [id number] ####Manufacturing Helper: MARY SOTELO ([phone])[facility] ([facility])[address] [place] [address] PCO2 ARTERIAL 68.4 mm Hg High >35.0-<45.0 [facility] Comment on above: Performed By: #### L [id number] ####Manufacturing Helper: MARY SOTELO ([phone])[facility] ([facility])[address] [place] [address] PH ARTERIAL 7.244 Low 7.350-7.450 [facility] Comment on above: Performed By: #### L [id number] ####Manufacturing Helper: MARY SOTELO ([phone])[facility] ([facility])[address] [place] [address] PO2 ARTERIAL 36.2 mm Hg Critically low 80.0-100.0 [facility] Comment on above: Performed By: #### L [id number] ####Manufacturing Helper: MARY SOTELO ([phone])[facility] ([facility])[address] [place] [address] SOURCE OF OXYGEN Bi-PAP Normal [facility] Comment on above: Result Comment: 10/07 , 3 L Performed By: #### L [id number] ####Manufacturing Helper: MARY SOTELO ([phone])[facility] ([facility])[address] [place] [address] Base excess Calc (Bld) [Moles/Vol] -1.0000 mmol/L Normal -3.0-3.0 [facility] Comment on above: Performed By: #### L [id number] ####Manufacturing Helper: MARY SOTELO ([phone])[facility])[address] [place] [address] CO2 [Moles/Vol] 30.1 mmol/L High 23.0-27.0 [facility] Comment on above: Performed By: #### L [id number] ####Manufacturing Helper: MARY [phone])[facility] [place] [address] HCO3 (Bld) [Moles/Vol] 27.9 mmol/L High 21.0-25.0 [facility] Comment on above: Performed By: #### L [id number] ####Manufacturing Helper: MARY SOTELO ([phone])[facility] ([facility])[address] [place] [address] Hemoglobin (Bld) [Mass/Vol] 10.1 g/dL Normal Screen only [facility] Comment on above: Performed By: #### L [id number] ####Manufacturing Helper: MARY SOTELO ([phone])[facility])[address] [place] [address] OXYGEN SATURATION (%) IN ARTERIAL BLOOD 92.1 % Low 95.0-100.0 [facility] Comment on above: Performed By: #### L [id number] ####Manufacturing Helper: MARY SOTELO ([phone])[facility] ([facility])[address] [place] [address] PCO2 ARTERIAL 71.5 mm Hg High >35.0-<45.0 [facility] Comment on above: Performed By: #### L [id number] ####Manufacturing Helper: MARY SOTELO ([phone])[facility] ([facility])[address] [place] [address] PH ARTERIAL 7.209 Low 7.350-7.450 [facility] Comment on above: Performed By: #### L [id number] ####Manufacturing Helper: MARY SOTELO ([phone])[facility] ([facility])[address] [place] [address] PO2 ARTERIAL 63.4 mm Hg Low 80.0-100.0 [facility] Comment on above: Performed By: #### L [id number] ####Manufacturing Helper: MARY SOTELO ([phone])[facility] ([facility])[address] [place] [address] SOURCE OF OXYGEN Nasal cannula Normal [facility] Comment on above: Result Comment: 3L Performed By: #### L [id number] ####Manufacturing Helper: MARY SOTELO ([phone])[facility] ([facility])[address] [place] [address] Basic metabolic 1998 panelon 08-20-2024 Anion gap [Moles/Vol] 8 mmol/L 3 - 13 mmol/L [facility] Calcium [Mass/Vol] 7.8 mg/dL Low 8.4 - 10. 4 mg/dL [facility] Chloride [Moles/Vol] 97 mmol/L Low 98 - 10 7 mmol/L [facility] CO2 [Moles/Vol] 24 mmol/L 22 - 30 mmol/L [facility] Creatinine [Mass/Vol] 3.58 mg/dL High 0.52 - 1.04 mg/dL [facility] GFR/1.73 sq M.predicted (S/P/Bld) [Vol rate/Area] 13.6 mL/min Low - PINF [facility] Glucose [Mass/Vol] 150 mg/dL High 70 - 100 mg/dL [facility] Interpretation and review of laboratory results Abnormal [facility] Potassium [Moles/Vol] 4 mmol/L 3.5 - 5.1 mmol/L [facility] Sodium [Moles/Vol] 129 mmol/L Low 135 - 145 mmol/L [facility] Urea nitrogen [Mass/Vol] 41 mg/dL High 7 - 17 mg/dL [facility] CALCIUM, IONIZEDon CALCIUM IONIZED 4.30 mg/dL Normal 4.30-5.20 [facility] Comment on above: Performed By: #### L [id number] ####Manufacturing Helper: MARY SOTELO ([phone])[facility] ([facility])[address] [place] [address] PH, IONIZED CALCIUM 7.25 Low 7.31-7.46 [facility] Comment on above: Performed By: #### L [id number] ####Manufacturing Helper: MARY SOTELO ([phone])[facility] ([facility])[address] [place] [address] CARECOORDon 08-20-2024 CARECOORD Normal [facility] CBC W Auto Differential pane l (Bld)on 08-20-2024 Basophils (Bld) [#/Vol] 0 10*3/uL 0.0 - 0.2 10*3/uL [facility] Basophils/100 WBC (Bld) 0 % 0.0 - 2.0 % [facility] Eosinophils (Bld) [#/Vol] 0.1 10*3/uL 0.0 - 0.5 10*3/uL [facility] Eosinophils/100 WBC (Bld) 1.4 % 0.0 - 6.0 % [facility] [employer] Erythrocyte distribution width (RBC) [Ratio] 15.5 % High 11.5 - 15.0 % [facility] Hematocrit (Bld) [Volume fraction] 30.5 % Low 35.0 - 47.0 % [facility] Hemoglobin (Bld) [Mass/Vol] 9.9 g/dL Low 11.7 - 16.0 g/dL [facility] [employer] Immature granulocytes (Bld) [#/Vol] 0 10*3/uL NINF - 0.1 10*3/uL [facility] Immature granulocytes/100 WBC (Bld) 0.5 % 0.0 - 2.0 % [facility] Interpretation and review of laboratory results Abnormal [facility] Lymphocytes (Bld) [#/Vol] 0.6 10*3/uL Low 1.0 - 4.3 10*3/uL [facility] Lymphocytes/100 WBC (Bld) 10.8 % Low 15.0 - 45.0 % [facility] MCH (RBC) [Entitic mass] 29.5 pg 26.0 - 34.0 pg [facility] MCHC (RBC) [Mass/Vol] 32.5 % 30.5 - 36.0 % [facility] MCV (RBC) [Entitic vol] 90.8 fL 77.0 - 99.[address] [facility] Monocytes (Bld) [#/Vol] 0.3 10*3/uL 0.0 - 0.9 10*3/uL [facility] Monocytes/100 WBC (Bld) 4.5 % Low 5.0 - 13.0 % [facility] Neutrophils (Bld) [#/Vol] 4.8 10*3/uL 1.8 - 7.5 10*3/uL [facility] Neutrophils/100 WBC (Bld) 82.8 % High 38.0 - 82.0 % [facility] Nucleated RBC/100 WBC (Bld) [Ratio] 0 % [facility] Platelet mean volume (Bld) [Entitic vol] 10.3 fL 9.0 - 12.7 fL [facility] Platelets (Bld) [#/Vol] 145 10*3/uL 140 - 440 10*3/uL [facility] RBC (Bld) [#/Vol] 3.36 10*6/uL Low 3.80 - 5.2 0 10*6/uL [facility] WBC (Bld) [#/Vol] 5.8 10*3/uL 3.6 - 10.7 10*3/uL [facility] CBC WITH AUTO DIFFERENTIALon 08-20-2024 Basophils (Bld) [#/Vol] 0.0 10*3/uL Normal 0.0-0.2 [facility] Comment on above: Performed By: #### L [id number] ####Manufacturing Helper: MARY SOTELO ([phone])[facility])[address] [place] [address] Basophils/100 WBC (Bld) 0.0 % Normal 0.0-2.0 [facility] Comment on above: Performed By: #### L [id number] ####Manufacturing Helper: MARY SOTELO ([phone])[facility])[address] [place] [address] Eosinophils (Bld) [#/Vol] 0.1 10*3/uL Normal 0.0-0.5 [facility] Comment on above: Performed By: #### L [id number] ####Manufacturing Helper: MARY SOTELO ([phone])[facility])[address] [place] [address] Eosinophils/100 WBC (Bld) 1.4 % Normal 0.0-6.0 [facility] Comment on above: Performed By: #### L [id number] ####Manufacturing Helper: MARY SOTELO ([phone])[facility])[address] [place] [address] Erythrocyte distribution width (RBC) [Ratio] 15.5 % High 11.5-15.0 [facility] Comment on above: Performed By: #### L [id number] ####Manufacturing Helper: MARY SOTELO ([phone])[address] Hematocrit (Bld) [Volume fraction] 30.5 % Low 35.0-47.0 [facility] Comment on above: Performed By: #### L [id number] ####Manufacturing Helper: MARY SOTELO ([phone])[facility])[address] [place] [address] Hemoglobin (Bld) [Mass/Vol] 9.9 g/dL Low 11.7-16.0 [facility] Comment on above: Performed By: #### L [id number] ####Manufacturing Helper: MARY SOTELO ([phone])[facility])[address] [place] [address] IMMATURE GRANS % 0.5 % Normal 0.0-2.0 [facility] Comment on above: Performed By: #### L [id number] ####Manufacturing Helper: MARY SOTELO ([phone])[address] IMMATURE GRANS ABSOLUTE 0.0 10*3/uL Normal <0.1 [facility] Comment on above: Performed By: #### L [id number] ####Manufacturing Helper: MARY SOTELO ([phone])[facility])[address] [place] [address] Lymphocytes (Bld) [#/Vol] 0.6 10*3/uL Low 1.0-4.3 [facility] Comment on above: Performed By: #### L [id number] ####Manufacturing Helper: MARY SOTELO ([phone])[address] Lymphocytes/100 WBC (Bld) 10.8 % Low 15.0-45.0 [facility] Comment on above: Performed By: #### L [id number] ####Manufacturing Helper: MARY [phone])[facility] ([facility])[address] [place] [address] MCH (RBC) [Entitic mass] 29.5 pg Normal 26.0-34.0 [facility] Comment on above: Performed By: #### L [id number] ####Manufacturing Helper: MARY SOTELO ([phone])[facility])[address] [place] [address] MCHC 32.5 % Normal 30.5-36.0 [facility] Comment on above: Performed By: #### L [id number] ####Manufacturing Helper: MARY SOTELO ([phone])[facility])[address] [place] [address] MCV (RBC) [Entitic vol] 90.8 fL Normal 77.0-99.0 [facility] Comment on above: Performed By: #### L [id number] ####Manufacturing Helper: MARY SOTELO ([phone])[facility] ([facility])[address] [place] [address] Monocytes (Bld) [#/Vol] 0.3 10*3/uL Normal 0.0-0.9 [facility] Comment on above: Performed By: #### L [id number] ####Manufacturing Helper: MARY SOTELO ([phone])[facility])[address] [place] [address] Monocytes/100 WBC (Bld) 4.5 % Low 5.0-13.0 [facility] Comment on above: Performed By: #### L [id number] ####Manufacturing Helper: MARY SOTELO ([phone])[facility])[address] [place] [address] NEUTROPHILS ABSOLUTE 4.8 10*3/uL Normal 1.8-7.5 [facility] Comment on above: Performed By: #### L [id number] ####Manufacturing Helper: MARY SOTELO ([phone])[facility])[address] [place] [address] Neutrophils/100 WBC (Bld) 82.8 % High 38.0-82.0 [facility] Comment on above: Performed By: #### L [id number] ####Manufacturing Helper: MARY SOTELO ([phone])[facility] ([facility])[address] [place] [address] NRBC 0.0 /100 WBCs Normal 0.0-2.0 [facility] Comment on above: Performed By: #### L [id number] ####Manufacturing Helper: MARY SOTELO ([phone])[facility] ([facility])[address] [place] [address] Platelet mean volume (Bld) [Entitic vol] 10.3 fL Normal 9.0-12.7 [facility] Comment on above: Performed By: #### L [id number] ####Manufacturing Helper: MARY SOTELO ([phone])[facility] ([facility])[address] [place] [address] Platelets (Bld) [#/Vol] 145 10*3/uL Normal 140-440 [facility] Comment on above: Performed By: #### L [id number] ####Manufacturing Helper: MARY SOTELO ([phone])[facility])[address] [place] [address] RBC (Bld) [#/Vol] 3.36 10*6/uL Low 3.80-5.20 [facility] Comment on above: Performed By: #### L [id number] ####Manufacturing Helper: MARY SOTELO ([phone])[facility] ([facility])[address] [place] [address] WBC (Bld) [#/Vol] 5.8 10*3/uL Normal 3.6-10.7 [facility] Comment on above: Performed By: #### L [id number] ####Manufacturing Helper: MARY SOTELO ([phone])[facility] ([facility])[address] [place] [address] Calcium.ionized [Moles/Vol]O rdered By: Fredy Friend on 08-20-2024 Calcium.ionized (Bld) [Moles/Vol] 4.3 mg/dL 4.30 - 5.20 mg/dL [facility] Interpretation and review of laboratory results Abnormal [facility] PH, IONIZED CALCIUM 7.25 Low 7.31 - 7.46 [facility] Consulton 08-20-2024 Consult Normal [facility] Laboratory - Chemistry and C hemistry - challengeon 08-20-2024 Base excess Calc (Bld) [Moles/Vol] -0.7000 mmol/L -3.0 - 3.0 mmol/L [facility] CO2 (Bld) [Partial pressure] 59.2 mm[Hg] High - PINF [facility] CO2 [Moles/Vol] 28.6 mmol/L High 23.0 - 27.0 mmol/L [facility] HCO3 (Bld) [Moles/Vol] 26.8 mmol/L High 21.0 - 25.0 mmol/L [facility] Oxygen (Bld) [Partial pressure] 113.3 mm[Hg] High [facility] pH (Bld) 7.274 [pH] Low 7.350 - 7.450 [facility] Glucose [Mass/Vol] 124 mg/dL High 70 - 100 mg/dL [facility] Base excess Calc (Bld) [Moles/Vol] 0.2 mmol/L -3.0 - 3.0 mmol/L [facility] CO2 (Bld) [Partial pressure] 67.9 mm[Hg] High - PINF [facility] CO2 [Moles/Vol] 30.7 mmol/L High 23.0 - 27.0 mmol/L [facility] HCO3 (Bld) [Moles/Vol] 28.6 mmol/L High 21.0 - 25.0 mmol/L [facility] Oxygen (Bld) [Partial pressure] 101.2 mm[Hg] High [facility] pH (Bld) 7.242 [pH] Low 7.350 - 7.450 [facility] Base excess Calc (Bld) [Moles/Vol] 0.5 mmol/L -3.0 - 3.0 mmol/L [facility] CO2 (Bld) [Partial pressure] 68.4 mm[Hg] High - PINF [facility] CO2 [Moles/Vol] 31 mmol/L High 23.0 - 27.0 mmol/L [facility] HCO3 (Bld) [Moles/Vol] 28.9 mmol/L High 21.0 - 25.0 mmol/L [facility] Oxygen (Bld) [Partial pressure] 36.2 mm[Hg] Critically low [facility] pH (Bld) 7.244 [pH] Low 7.350 - 7.450 [facility] [facility] Glucose [Mass/Vol] 185 mg/dL High 70 - 100 mg/dL [facility] Glucose [Mass/Vol] 158 mg/dL High 70 - 100 mg/dL [facility] Magnesium [Mass/Vol] 2 mg/dL 1.6 - 2 .3 mg/dL [facility] Laboratory - Chemistry and C hemistry - challengeOrdered By: Audrey Blanchard on 08-20-2024 Base excess Calc (Bld) [Moles/Vol] -1 mmol/L -3.0 - 3.0 mmol/L [facility] CO2 (Bld) [Partial pressure] 71.5 mm[Hg] High - PINF [facility] CO2 [Moles/Vol] 30.1 mmol/L High 23.0 - 27.0 mmol/L [facility] HCO3 (Bld) [Moles/Vol] 27.9 mmol/L High 21.0 - 25.0 mmol/L [facility] Oxygen (Bld) [Partial pressure] 63.4 mm[Hg] Low [facility] pH (Bld) 7.209 [pH] Low 7.350 - 7.450 [facility] Laboratory - Hematology and Cell countson 08-20-2024 Hemoglobin (Bld) [Mass/Vol] 10.3 g/dL Screen only [facility] Hemoglobin (Bld) [Mass/Vol] 10.5 g/dL Screen only [facility] Hemoglobin (Bld) [Mass/Vol] 10.4 g/dL Screen only [facility] Laboratory - Hematology and Cell countsOrdered By: Audrey Blanchard on 08-20-2024 Hemoglobin (Bld) [Mass/Vol] 10.1 g/dL Screen only [facility] MAGNESIUMon 08-20-2024 Magnesium [Mass/Vol] 2.0 mg/dL Normal 1.6-2.3 [facility] Comment on above: Performed By: #### L AB15, [id number], [id number] ####Manufacturing Helper: MARY SOTELO ([phone])[facility])[address] [place] [address] No Panel Informationon 08-20 Interpretation and review of laboratory results Abnormal [facility] Source Of Oxygen 40% Oxygen [facility] Interpretation and review of laboratory results Abnormal [facility] Interpretation and review of laboratory results Abnormal [facility] Source Of Oxygen 40% Oxygen [facility] Interpretation and review of laboratory results Abnormal [facility] Source Of Oxygen Bi-PAP [facility] Interpretation and review of laboratory results Abnormal [facility] Interpretation and review of laboratory results Abnormal [facility] Interpretation and review of laboratory results Normal [facility] No Panel InformationOrdered By: Audrey Blanchard on 08-20-2024 Interpretation and review of laboratory results Abnormal [facility] Source Of Oxygen Nasal cannula [facility] PHOSPHORUSon 08-20-2024 Phosphate [Mass/Vol] 4.1 mg/dL Normal 2.5-4.5 [facility] Comment on above: Performed By: #### L AB15, [id number], [id number] ####Manufacturing Helper: MARY SOTELO ([phone])[facility])[address] [place] [address] Phosphate [Moles/Vol]on 08-03 Phosphate [Mass/Vol] 4.1 mg/dL 2.5 - 4 .5 mg/dL [facility] Progress Noteon 08-20-2024 Progress Note OCCUPATIONAL THERAPY Attempted OT services, pt on hold due to pt unable to stay aroused/limited responsiveness. Will reattempt when pt is alert/able to participate. Normal [facility] Progress Note Normal [facility] Progress Note Normal [facility] Progress Note Normal [facility] Progress Note Normal [facility] BASIC METABOLIC PANELon 08-03 Anion gap [Moles/Vol] 3 mmol/L Normal 3-13 [facility] Comment on above: Performed By: #### L AB113, LAB15, [id number], [id number] ####Manufacturing Helper: MARY SOTELO ([phone])[facility] ([facility])[address] [place] [address] Calcium [Mass/Vol] 7.4 mg/dL Low 8.4-10.4 [facility] Comment on above: Performed By: #### L AB113, LAB15, [id number], [id number] ####Manufacturing Helper: MARY SOTELO ([phone])[facility] ([facility])[address] [place] [address] Chloride [Moles/Vol] 95 mmol/L Low 98-107 [facility] Comment on above: Performed By: #### L AB113, LAB15, [id number], [id number] ####Manufacturing Helper: MARY SOTELO ([phone])[facility] ([facility])[address] [place] [address] CO2 [Moles/Vol] 28 mmol/L Normal 22-30 [facility] Comment on above: Performed By: #### L AB113, LAB15, [id number], [id number] ####Manufacturing Helper: MARY SOTELO ([phone])[facility] ([facility])[address] [place] [address] Creatinine [Mass/Vol] 2.98 mg/dL High 0.52-1.04 [facility] Comment on above: Performed By: #### L AB113, LAB15, [id number], [id number] ####Manufacturing Helper: MARY SOTELO ([phone])[facility])[address] [place] [address] GLOMERULAR FILTRATION RATE ML/MIN/1.73 SQ M.PREDICTED 17.0 mL/min/1.73m*2 Low >60.0 [facility] Comment on above: Result Comment: Calc ulation based on the Chronic Kidney Disease Epidemiology Collaboration (CKD-EPI) equation refit without adjustment for race Performed By: #### L AB113, LAB15, [id number], [id number] ####Manufacturing Helper: MARY SOTELO ([phone])[facility])[address] [place] [address] Glucose [Mass/Vol] 626 mg/dL Critically high 70-100 [facility] Comment on above: Performed By: #### L AB113, LAB15, [id number], [id number] ####Manufacturing Helper: MARY SOTELO ([phone])[facility] ([facility])[address] [place] [address] Potassium [Moles/Vol] 4.4 mmol/L Normal 3.5-5.1 [facility] Comment on above: Performed By: #### L AB113, LAB15, [id number], [id number] ####Manufacturing Helper: MARY SOTELO ([phone])[facility] ([facility])[address] [place] [address] Sodium [Moles/Vol] 126 mmol/L Low 135-145 [facility] Comment on above: Performed By: #### L AB113, LAB15, [id number], [id number] ####Manufacturing Helper: MARY SOTELO ([phone])[facility] ([facility])[address] [place] [address] Urea nitrogen [Mass/Vol] 28 mg/dL High - [facility] Comment on above: Performed By: #### L AB113, LAB15, [id number], [id number] ####Manufacturing Helper: MARY SOTELO ([phone])[facility] ([facility])[address] [place] [address] BETA HYDROXYBUTYRATEon 08-19 BETA HYDROXYBUTYRATE 7.01 mg/dL High 0.20-2.81 [facility] Comment on above: Performed By: #### L AB113, LAB15, GMC507, [id number] ####Manufacturing Helper: MARY SOTELO ([phone])[facility])[address] [place] [address] Bacteria identified Cx Nom ( Bld)on 08-19-2024 Interpretation and review of laboratory results Normal [facility] Basic metabolic 1998 panelon 08-19-2024 Anion gap [Moles/Vol] 3 mmol/L 3 - 13 mmol/L [facility] Calcium [Mass/Vol] 7.4 mg/dL Low 8.4 - 10. 4 mg/dL [facility] Chloride [Moles/Vol] 95 mmol/L Low 98 - 10 7 mmol/L [facility] CO2 [Moles/Vol] 28 mmol/L 22 - 30 mmol/L [facility] Creatinine [Mass/Vol] 2.98 mg/dL High 0.52 - 1.04 mg/dL [facility] GFR/1.73 sq M.predicted (S/P/Bld) [Vol rate/Area] 17 mL/min Low - PINF [facility] Glucose [Mass/Vol] 626 mg/dL Critically high 70 - 1 00 mg/dL [facility] Interpretation and review of laboratory results Abnormal [facility] Potassium [Moles/Vol] 4.4 mmol/L 3.5 - 5.1 mmol/L [facility] Sodium [Moles/Vol] 126 mmol/L Low 135 - 145 mmol/L [facility] Urea nitrogen [Mass/Vol] 28 mg/dL High 7 - 17 mg/dL [facility] CALCIUM, IONIZEDon CALCIUM IONIZED 4.20 mg/dL Low 4.30-5.20 [facility] Comment on above: Performed By: #### L [id number] ####Manufacturing Helper: MARY SOTELO ([phone])[address] PH, IONIZED CALCIUM 7.21 Low 7.31-7.46 [facility] Comment on above: Performed By: #### L AB54 ####Manufacturing Helper: MARY SOTELO ([phone])[facility])[address] [place] [address] CBC W Auto Differential pane l (Bld)on 08-19-2024 Basophils (Bld) [#/Vol] 0 10*3/uL 0.0 - 0.2 10*3/uL [facility] Basophils/100 WBC (Bld) 0.3 % 0.0 - 2.0 % [facility] Eosinophils (Bld) [#/Vol] 0.1 10*3/uL 0.0 - 0.5 10*3/uL [facility] Eosinophils/100 WBC (Bld) 2.5 % 0.0 - 6.0 % [facility] Erythrocyte distribution width (RBC) [Ratio] 15.6 % High 11.5 - 15.0 % [facility] Hematocrit (Bld) [Volume fraction] 29.5 % Low 35.0 - 47.0 % [facility] Hemoglobin (Bld) [Mass/Vol] 9.3 g/dL Low 11.7 - 16.0 g/dL [facility] Immature granulocytes (Bld) [#/Vol] 0 10*3/uL NINF - 0.1 10*3/uL [facility] Immature granulocytes/100 WBC (Bld) 0.3 % 0.0 - 2.0 % [facility] Interpretation and review of laboratory results Abnormal [facility] Lymphocytes (Bld) [#/Vol] 0.6 10*3/uL Low 1.0 - 4.3 10*3/uL [facility] Lymphocytes/100 WBC (Bld) 14.8 % Low 15.0 - 45.0 % [facility] MCH (RBC) [Entitic mass] 29.3 pg 26.0 - 34.0 pg [facility] MCHC (RBC) [Mass/Vol] 31.5 % 30.5 - 36.0 % [facility] MCV (RBC) [Entitic vol] 93.1 fL 77.0 - 99.0 fL [facility] Monocytes (Bld) [#/Vol] 0.3 10*3/uL 0.0 - 0.9 10*3/uL [facility] Monocytes/100 WBC (Bld) 6.8 % 5.0 - 13.0 % [facility] Neutrophils (Bld) [#/Vol] 3 10*3/uL 1.8 - 7.5 10*3/uL [facility] Neutrophils/100 WBC (Bld) 75.3 % 38.0 - 82.0 % [facility] Nucleated RBC/100 WBC (Bld) [Ratio] 0 % [facility] Platelet mean volume (Bld) [Entitic vol] 10.6 fL 9.0 - 12.7 fL [facility] Platelets (Bld) [#/Vol] 114 10*3/uL Low 140 - 440 10*3/uL [facility] RBC (Bld) [#/Vol] 3.17 10*6/uL Low 3.80 - 5.2 0 10*6/uL [facility] WBC (Bld) [#/Vol] 4 10*3/uL 3.6 - 10.7 10*3/uL [facility] CBC WITH AUTO DIFFERENTIALon 08-19-2024 Basophils (Bld) [#/Vol] 0.0 10*3/uL Normal 0.0-0.2 [facility] Comment on above: Performed By: #### L [id number] ####Manufacturing Helper: MARY SOTELO ([phone])[facility])[address] [place] [address] Basophils/100 WBC (Bld) 0.3 % Normal 0.0-2.0 [facility] Comment on above: Performed By: #### L [id number] ####Manufacturing Helper: MARY SOTELO ([phone])[facility])[address] [place] [address] Eosinophils (Bld) [#/Vol] 0.1 10*3/uL Normal 0.0-0.5 [facility] Comment on above: Performed By: #### L [id number] ####Manufacturing Helper: MARY SOTELO ([phone])[facility])[address] [place] [address] Eosinophils/100 WBC (Bld) 2.5 % Normal 0.0-6.0 [facility] Comment on above: Performed By: #### L [id number] ####Manufacturing Helper: MARY SOTELO ([phone])[facility])[address] [place] [address] Erythrocyte distribution width (RBC) [Ratio] 15.6 % High 11.5-15.0 [facility] Comment on above: Performed By: #### L [id number] ####Manufacturing Helper: MARY SOTELO ([phone])[facility])[address] [place] [address] Hematocrit (Bld) [Volume fraction] 29.5 % Low 35.0-47.0 [facility] Comment on above: Performed By: #### L [id number] ####Manufacturing Helper: MARY SOTELO ([phone])[facility])[address] [place] [address] Hemoglobin (Bld) [Mass/Vol] 9.3 g/dL Low 11.7-16.0 [facility] Comment on above: Performed By: #### L [id number] ####Manufacturing Helper: MARY SOTELO ([phone])[facility])[address] [place] [address] IMMATURE GRANS % 0.3 % Normal 0.0-2.0 [facility] Comment on above: Performed By: #### L [id number] ####Manufacturing Helper: MARY SOTELO ([phone])[facility])[address] [place] [address] IMMATURE GRANS ABSOLUTE 0.0 10*3/uL Normal <0.1 [facility] Comment on above: Performed By: #### L [id number] ####Manufacturing Helper: MARY SOTELO ([phone])[facility] ([facility])[address] [place] [address] Lymphocytes (Bld) [#/Vol] 0.6 10*3/uL Low 1.0-4.3 [facility] Comment on above: Performed By: #### L [id number] ####Manufacturing Helper: MARY SOTELO ([phone])[facility])[address] [place] [address] Lymphocytes/100 WBC (Bld) 14.8 % Low 15.0-45.0 [facility] Comment on above: Performed By: #### L [id number] ####Manufacturing Helper: MARY SOTELO ([phone])[facility])[address] [place] [address] MCH (RBC) [Entitic mass] 29.3 pg Normal 26.0-34.0 [facility] Comment on above: Performed By: #### L [id number] ####Manufacturing Helper: MARY SOTELO ([phone])[facility])[address] [place] [address] MCHC 31.5 % Normal 30.5-36.0 [facility] Comment on above: Performed By: #### L [id number] ####Manufacturing Helper: MARY SOTELO ([phone])[facility] ([facility])[address] [place] [address] MCV (RBC) [Entitic vol] 93.1 fL Normal 77.0-99.0 [facility] Comment on above: Performed By: #### L [id number] ####Manufacturing Helper: MARY SOTELO ([phone])[facility] ([facility])[address] [place] [address] Monocytes (Bld) [#/Vol] 0.3 10*3/uL Normal 0.0-0.9 [facility] Comment on above: Performed By: #### L [id number] ####Manufacturing Helper: MARY SOTELO ([phone])[facility] ([facility])[address] [place] [address] Monocytes/100 WBC (Bld) 6.8 % Normal 5.0-13.0 [facility] Comment on above: Performed By: #### L [id number] ####Manufacturing Helper: MARY SOTELO ([phone])[facility] ([facility])[address] [place] [address] NEUTROPHILS ABSOLUTE 3.0 10*3/uL Normal 1.8-7.5 [facility] Comment on above: Performed By: #### L [id number] ####Manufacturing Helper: MARY SOTELO ([phone])[facility] ([facility])[address] [place] [address] Neutrophils/100 WBC (Bld) 75.3 % Normal 38.0-82.0 [facility] Comment on above: Performed By: #### L [id number] ####Manufacturing Helper: MARY SOTELO ([phone])[facility] ([facility])[address] [place] [address] NRBC 0.0 /100 WBCs Normal 0.0-2.0 [facility] Comment on above: Performed By: #### L [id number] ####Manufacturing Helper: MARY SOTELO ([phone])[facility])[address] [place] [address] Platelet mean volume (Bld) [Entitic vol] 10.6 fL Normal 9.0-12.7 [facility] Comment on above: Performed By: #### L [id number] ####Manufacturing Helper: MARY SOTELO ([phone])[facility] ([facility])[address] [place] [address] Platelets (Bld) [#/Vol] 114 10*3/uL Low 140-440 [facility] Comment on above: Performed By: #### L [id number] ####Manufacturing Helper: MARY SOTELO ([phone])[facility] ([facility])[address] [place] [address] RBC (Bld) [#/Vol] 3.17 10*6/uL Low 3.80-5.20 [facility] Comment on above: Performed By: #### L [id number] ####Manufacturing Helper: MARY SOTELO ([phone])[facility])[address] [place] [address] WBC (Bld) [#/Vol] 4.0 10*3/uL Normal 3.6-10.7 [facility] Comment on above: Performed By: #### L [id number] ####Manufacturing Helper: MARY SOTELO ([phone])[facility])[address] [place] [address] Calcium.ionized [Moles/Vol]O rdered By: Yoana Boyd on 08-19-2024 Calcium.ionized (Bld) [Moles/Vol] 4.2 mg/dL Low 4.30 - 5.20 mg/dL [facility] Interpretation and review of laboratory results Abnormal [facility] PH, IONIZED CALCIUM 7.21 Low 7.31 - 7.46 [facility] GLUCOSE, RANDOMon 08-19-2024 Glucose [Mass/Vol] 653 mg/dL Critically high 70-100 [facility] Comment on above: Performed By: #### L [id number] ####Manufacturing Helper: MARY SOTELO ([phone])[facility])[address] [place] [address] Glucose (Bld) [Mass/Vol]on 1 Glucose [Mass/Vol] 653 mg/dL Critically high 70 - 1 00 mg/dL [facility] Interpretation and review of laboratory results Abnormal [facility] - Chemistry and C hemistry - challengeon 08-19-2024 Glucose [Mass/Vol] 118 mg/dL High 70 - 100 mg/dL [facility] Glucose [Mass/Vol] 162 mg/dL High 70 - 100 mg/dL [facility] Glucose [Mass/Vol] 268 mg/dL High 70 - 100 mg/dL [facility] Glucose [Mass/Vol] 414 mg/dL High 70 - 100 mg/dL [facility] Glucose [Mass/Vol] mg/dL High 70 - 100 mg/dL [facility] Glucose [Mass/Vol] mg/dL High 70 - 100 mg/dL [facility] Glucose [Mass/Vol] mg/dL High 70 - 100 mg/dL [facility] Beta hydroxybutyrate [Mass/Vol] 7.01 mg/dL High 0.20 - 2.81 mg/dL [facility] Magnesium [Mass/Vol] 2 mg/dL 1.6 - 2 .3 mg/dL [facility] Glucose [Mass/Vol] mg/dL High 70 - 100 mg/dL [facility] - Microbiology an d Antimicrobial susceptibilityon 08-19-2024 Bacteria identified Cx Nom (Bld) No growth at 5 days [facility] MAGNESIUMon 08-19-2024 Magnesium [Mass/Vol] 2.0 mg/dL Normal 1.6-2.3 [facility] Comment on above: Performed By: #### L AB113, LAB15, [id number], [id number] ####Manufacturing Helper: MARY SOTELO ([phone])[facility] ([facility])[address] [place] [address] No Panel Informationon 08-19 Interpretation and review of laboratory results Abnormal [facility] Interpretation and review of laboratory results Abnormal [facility] Interpretation and review of laboratory results Abnormal [facility] Interpretation and review of laboratory results Abnormal [facility] Interpretation and review of laboratory results Abnormal [facility] Interpretation and review of laboratory results Abnormal [facility] Interpretation and review of laboratory results Abnormal [facility] Interpretation and review of laboratory results Abnormal [facility] Interpretation and review of laboratory results Normal [facility] Interpretation and review of laboratory results Abnormal [facility] Nursing Noteon 08-19-2024 Nursing Note Pt MBS for dinner wa s 162 orders for 8 scheduled H. Log and [address] Baires paged. Orders to give SSI and Hold scheduled 8 units if pt does not eat dinner. Pt did not want to eat dinner; 8 units held Normal [facility] Nursing Note Pt seemingly more confused and a little more lethargic than this morning. Med Team paged to make aware Normal [facility] Nursing Note Pt recheck MBS was 527. Dr. Bijan Jarrett paged to make aware Normal [facility] Nursing Note Pt MBS still reading HI. Med Team at bedside. Physician stated no need to draw confirmation, but to give 1 time 15 unit of R and recheck in one hour. Normal [facility] Nursing Note Dr. Bijan Jarrett paged wi th repeat glucose of 653 Normal [facility] Nursing Note Critical Care lab called with result of 626. Med Team A paged regarding. Normal [facility] PHOSPHORUSon 08-19-2024 Phosphate [Mass/Vol] 3.8 mg/dL Normal 2.5-4.5 [facility] Comment on above: Performed By: #### L AB113, LAB15, [id number], [id number] ####Manufacturing Helper: MARY SOTELO ([phone])[facility] ([address] Phosphate [Moles/Vol]on 08-03 Phosphate [Mass/Vol] 3.8 mg/dL 2.5 - 4 .5 mg/dL [facility] Progress Noteon 08-19-2024 Progress Note Normal [facility] Progress Note Normal [facility] Progress Note Normal [facility] Progress Note [facility] BASIC METABOLIC PANELon 10-1 Anion gap [Moles/Vol] 4 mmol/L Normal 3-13 [facility] Comment on above: Performed By: #### L AB113, [id number], LAB15 ####Manufacturing Helper: MARY SOTELO ([phone])[facility])[address] [place] [address] Calcium [Mass/Vol] 7.9 mg/dL Low 8.4-10.4 [facility] Comment on above: Performed By: #### L AB113, [id number], LAB15 ####Manufacturing Helper: MARY SOTELO ([phone])[facility] ([facility])[address] [place] [address] Chloride [Moles/Vol] 99 mmol/L Normal 98-107 [facility] Comment on above: Performed By: #### L AB113, [id number], LAB15 ####Manufacturing Helper: MARY SOTELO ([phone])[facility] ([facility])[address] [place] [address] [place] CO2 [Moles/Vol] 27 mmol/L Normal 22-30 [facility] Comment on above: Performed By: #### L AB113, [id number], LAB15 ####Manufacturing Helper: MARY SOTELO ([phone])[facility])[address] [place] [address] Creatinine [Mass/Vol] 3.57 mg/dL High 0.52-1.04 [facility] Comment on above: Performed By: #### L AB113, [id number], LAB15 ####Manufacturing Helper: MARY SOTELO ([phone])[facility])[address] [place] [address] [place] GLOMERULAR FILTRATION RATE ML/MIN/1.73 SQ M.PREDICTED 13.7 mL/min/1.73m*2 Low >60.0 [facility] Comment on above: Result Comment: Calc ulation based on the Chronic Kidney Disease Epidemiology Collaboration (CKD-EPI) equation refit without adjustment for race Performed By: #### L AB113, [id number], LAB15 ####Manufacturing Helper: MARY SOTELO ([phone])[facility])[address] [place] [address] Glucose [Mass/Vol] 281 mg/dL High 70-100 [facility] Comment on above: Performed By: #### L AB113, [id number], LAB15 ####Manufacturing Helper: MARY SOTELO ([phone])[facility])[address] [place] [address] Potassium [Moles/Vol] 3.8 mmol/L Normal 3.5-5.1 [facility] Comment on above: Performed By: #### L AB113, [id number], LAB15 ####Manufacturing Helper: MARY SOTELO ([phone])[facility])[address] [place] [address] Sodium [Moles/Vol] 130 mmol/L Low 135-145 [facility] Comment on above: Performed By: #### L AB113, [id number], LAB15 ####Manufacturing Helper: MARY SOTELO ([phone])[facility])[address] [place] [address] Urea nitrogen [Mass/Vol] 35 mg/dL High 7-17 [facility] Comment on above: Performed By: #### L AB113, [id number], LAB15 ####Manufacturing Helper: MARY SOTELO ([phone])[facility])[address] [place] [address] Basic metabolic 1998 panelon 08-18-2024 Anion gap [Moles/Vol] 4 mmol/L 3 - 13 mmol/L [facility] Calcium [Mass/Vol] 7.9 mg/dL Low 8.4 - 10. 4 mg/dL [facility] Chloride [Moles/Vol] 99 mmol/L 98 - 10 7 mmol/L [facility] CO2 [Moles/Vol] 27 mmol/L 22 - 30 mmol/L [facility] Creatinine [Mass/Vol] 3.57 mg/dL High 0.52 - 1.04 mg/dL [facility] GFR/1.73 sq M.predicted (S/P/Bld) [Vol rate/Area] 13.7 mL/min Low - PINF [facility] Glucose [Mass/Vol] 281 mg/dL High 70 - 100 mg/dL [facility] Interpretation and review of laboratory results Abnormal [facility] Potassium [Moles/Vol] 3.8 mmol/L 3.5 - 5.1 mmol/L [facility] Sodium [Moles/Vol] 130 mmol/L Low 135 - 145 mmol/L [facility] Urea nitrogen [Mass/Vol] 35 mg/dL High 7 - 17 mg/dL [facility] CALCIUM, IONIZEDon CALCIUM IONIZED 4.50 mg/dL Normal 4.30-5.20 [facility] Comment on above: Performed By: #### L [id number] ####Manufacturing Helper: MARY SOTELO ([phone])[address] PH, IONIZED CALCIUM 7.26 Low 7.31-7.46 [facility] Comment on above: Performed By: #### L [id number] ####Manufacturing Helper: MARY SOTELO ([phone])[facility] ([address] CARECOORDon 08-18-2024 [place]OORD Normal [facility] CBC W Auto Differential pane l (Bld)on 08-18-2024 Basophils (Bld) [#/Vol] 0 10*3/uL 0.0 - 0.2 10*3/uL [facility] Basophils/100 WBC (Bld) 0.2 % 0.0 - 2.0 % [facility] Eosinophils (Bld) [#/Vol] 0.1 10*3/uL 0.0 - 0.5 10*3/uL [facility] Eosinophils/100 WBC (Bld) 2.9 % 0.0 - 6.0 % [facility] Erythrocyte distribution width (RBC) [Ratio] 15.7 % High 11.5 - 15.0 % [facility] Hematocrit (Bld) [Volume fraction] 29.1 % Low 35.0 - 47.0 % [facility] Hemoglobin (Bld) [Mass/Vol] 9.2 g/dL Low 11.7 - 16.0 g/dL [facility] Immature granulocytes (Bld) [#/Vol] 0 10*3/uL NINF - 0.1 10*3/uL [facility] Immature granulocytes/100 WBC (Bld) 0.7 % 0.0 - 2.0 % [facility] Interpretation and review of laboratory results Abnormal [facility] IPF 4 [facility] Lymphocytes (Bld) [#/Vol] 0.8 10*3/uL Low 1.0 - 4.3 10*3/uL [facility] Lymphocytes/100 WBC (Bld) 17.9 % 15.0 - 45.0 % [facility] MCH (RBC) [Entitic mass] 29.1 pg 26.0 - 34.0 pg [facility] MCHC (RBC) [Mass/Vol] 31.6 % 30.5 - 36.0 % [facility] MCV (RBC) [Entitic vol] 92.1 fL 77.0 - 99.0 fL [facility] Monocytes (Bld) [#/Vol] 0.4 10*3/uL 0.0 - 0.9 10*3/uL [facility] Monocytes/100 WBC (Bld) 7.8 % 5.0 - 13.0 % [facility] Neutrophils (Bld) [#/Vol] 3.2 10*3/uL 1.8 - 7.5 10*3/uL [facility] Neutrophils/100 WBC (Bld) 70.5 % 38.0 - 82.0 % [facility] Nucleated RBC/100 WBC (Bld) [Ratio] 0 % [facility] Platelet mean volume (Bld) [Entitic vol] 10.2 fL 9.0 - 12.7 fL [facility] Platelets (Bld) [#/Vol] 111 10*3/uL Low 140 - 440 10*3/uL [facility] RBC (Bld) [#/Vol] 3.16 10*6/uL Low 3.80 - 5.2 0 10*6/uL [facility] WBC (Bld) [#/Vol] 4.5 10*3/uL 3.6 - 10.7 10*3/uL [facility] CBC WITH AUTO DIFFERENTIALon 10-16-2024 Basophils (Bld) [#/Vol] 0.0 10*3/uL Normal 0.0-0.2 [facility] Comment on above: Performed By: #### L [id number] ####Manufacturing Helper: MARY SOTELO ([phone])[facility])[address] [place] [address] Basophils/100 WBC (Bld) 0.2 % Normal 0.0-2.0 [facility] Comment on above: Performed By: #### L [id number] ####Manufacturing Helper: MARY SOTELO ([phone])[facility])[address] [place] [address] Eosinophils (Bld) [#/Vol] 0.1 10*3/uL Normal 0.0-0.5 [facility] Comment on above: Performed By: #### L [id number] ####Manufacturing Helper: MARY SOTELO ([phone])[facility])[address] [place] [address] [place] Eosinophils/100 WBC (Bld) 2.9 % Normal 0.0-6.0 [facility] Comment on above: Performed By: #### L [id number] ####Manufacturing Helper: MARY SOTELO ([phone])[facility])[address] [place] [address] Erythrocyte distribution width (RBC) [Ratio] 15.7 % High 11.5-15.0 [facility] Comment on above: Performed By: #### L [id number] ####Manufacturing Helper: MARY SOTELO ([phone])[facility])[address] [place] [address] Hematocrit (Bld) [Volume fraction] 29.1 % Low 35.0-47.0 [facility] Comment on above: Performed By: #### L [id number] ####Manufacturing Helper: MARY SOTELO ([phone])[facility])[address] [place] [address] Hemoglobin (Bld) [Mass/Vol] 9.2 g/dL Low 11.7-16.0 [facility] Comment on above: Performed By: #### L [id number] ####Manufacturing Helper: MARY SOETLO ([phone])[address] IMMATURE GRANS % 0.7 % Normal 0.0-2.0 [facility] Comment on above: Performed By: #### L [id number] ####Manufacturing Helper: MARY SOTELO ([phone])[facility])[address] [place] [address] IMMATURE GRANS ABSOLUTE 0.0 10*3/uL Normal <0.1 [facility] Comment on above: Performed By: #### L [id number] ####Manufacturing Helper: MARY SOTELO ([phone])[address] IPF 4 Normal [facility] Comment on above: Performed By: #### L [id number] ####Manufacturing Helper: MARY SOTELO ([phone])[facility])[address] [place] [address] Lymphocytes (Bld) [#/Vol] 0.8 10*3/uL Low 1.0-4.3 [facility] Comment on above: Performed By: #### L [id number] ####Manufacturing Helper: MARY SOTELO ([phone])[address] Lymphocytes/100 WBC (Bld) 17.9 % Normal 15.0-45.0 [facility] Comment on above: Performed By: #### L [id number] ####Manufacturing Helper: MARY SOTELO ([phone])[address] MCH (RBC) [Entitic mass] 29.1 pg Normal 26.0-34.0 [facility] Comment on above: Performed By: #### L [id number] ####Manufacturing Helper: MARY SOTELO ([phone])[address] [place] [address] [place] MCHC 31.6 % Normal 30.5-36.0 [facility] Comment on above: Performed By: #### L [id number] ####Manufacturing Helper: MARY SOTELO ([phone])[facility] ([facility])[address] [place] [address] MCV (RBC) [Entitic vol] 92.1 fL Normal 77.0-99.0 [facility] Comment on above: Performed By: #### L [id number] ####Manufacturing Helper: MARY SOTELO ([phone])[facility] ([facility])[address] [place] [address] Monocytes (Bld) [#/Vol] 0.4 10*3/uL Normal 0.0-0.9 [facility] Comment on above: Performed By: #### L [id number] ####Manufacturing Helper: MARY SOTELO ([phone])[facility] ([facility])[address] [place] [address] Monocytes/100 WBC (Bld) 7.8 % Normal 5.0-13.0 [facility] Comment on above: Performed By: #### L [id number] ####Manufacturing Helper: MARY SOTELO ([phone])[facility] ([facility])[address] [place] [address] NEUTROPHILS ABSOLUTE 3.2 10*3/uL Normal 1.8-7.5 [facility] Comment on above: Performed By: #### L [id number] ####Manufacturing Helper: MARY SOTELO ([phone])[facility] ([facility])[address] [place] [address] Neutrophils/100 WBC (Bld) 70.5 % Normal 38.0-82.0 [facility] Comment on above: Performed By: #### L [id number] ####Manufacturing Helper: MARY SOTELO ([phone])[facility] ([facility])[address] [place] [address] [place] NRBC 0.0 /100 WBCs Normal 0.0-2.0 [facility] Comment on above: Performed By: #### L [id number] ####Manufacturing Helper: MARY SOTELO ([phone])[facility])[address] [place] [address] Platelet mean volume (Bld) [Entitic vol] 10.2 fL Normal 9.0-12.7 [facility] Comment on above: Performed By: #### L [id number] ####Manufacturing Helper: MARY SOTELO ([phone])[facility] ([facility])[address] [place] [address] Platelets (Bld) [#/Vol] 111 10*3/uL Low 140-440 [facility] Comment on above: Performed By: #### L [id number] ####Manufacturing Helper: MARY SOTELO ([phone])[facility] ([facility])[address] [place] [address] RBC (Bld) [#/Vol] 3.16 10*6/uL Low 3.80-5.20 [facility] Comment on above: Performed By: #### L [id number] ####Manufacturing Helper: MARY SOTELO ([phone])[facility] ([facility])[address] [place] [address] WBC (Bld) [#/Vol] 4.5 10*3/uL Normal 3.6-10.7 [facility] Comment on above: Performed By: #### L [id number] ####Manufacturing Helper: MARY SOTELO ([phone])[facility])[address] [place] [address] Calcium.ionized [Moles/Vol]O rdered By: Elliott Macedo on 08-18-2024 Calcium.ionized (Bld) [Moles/Vol] 4.5 mg/dL 4.30 - 5.20 mg/dL [facility] Interpretation and review of laboratory results Abnormal [facility] PH, IONIZED CALCIUM 7.26 Low 7.31 - 7.46 [facility] IDNon 08-18-2024 IDN Normal [facility] Laboratory - Chemistry and C hemistry - challengeon 08-18-2024 Glucose [Mass/Vol] 297 mg/dL High 70 - 100 mg/dL [facility] Glucose [Mass/Vol] 325 mg/dL High 70 - 100 mg/dL [facility] Glucose [Mass/Vol] 181 mg/dL High 70 - 100 mg/dL [facility] Glucose [Mass/Vol] 187 mg/dL High 70 - 100 mg/dL [facility] Magnesium [Mass/Vol] 2 mg/dL 1.6 - 2 .3 mg/dL [facility] MAGNESIUMon 08-18-2024 Magnesium [Mass/Vol] 2.0 mg/dL Normal 1.6-2.3 [facility] Comment on above: Performed By: #### L [id number], [id number], LAB15 ####Manufacturing Helper: MARY SOTELO ([phone])[facility])[address] [place] [address] No Panel Informationon 08-18 Interpretation and review of laboratory results Abnormal [facility] Interpretation and review of laboratory results Abnormal [facility] Interpretation and review of laboratory results Abnormal [facility] Interpretation and review of laboratory results Abnormal [facility] Interpretation and review of laboratory results Normal [facility] Nursing Noteon 08-18-2024 Nursing Note Normal [facility] PHOSPHORUSon 08-18-2024 Phosphate [Mass/Vol] 3.4 mg/dL Normal 2.5-4.5 [facility] Comment on above: Performed By: #### L AB113, [id number], LAB15 ####Manufacturing Helper: MARY SOTELO ([phone])[facility] ([facility])[address] [place] [address] Phosphate [Moles/Vol]on 08-03 Phosphate [Mass/Vol] 3.4 mg/dL 2.5 - 4 .5 mg/dL [facility] Progress Noteon 08-18-2024 Progress Note Normal [facility] Progress Note Normal [facility] Progress Note Normal [facility] Progress Note Normal [facility] BASIC METABOLIC PANELon 08-03 Anion gap [Moles/Vol] 5 mmol/L Normal 3-13 [facility] Comment on above: Performed By: #### L AB103, [id number], LAB15 ####Manufacturing Helper: MARY SOTELO ([phone])[facility] ([facility])[address] [place] [address] Calcium [Mass/Vol] 7.0 mg/dL Low 8.4-10.4 [facility] Comment on above: Performed By: #### Dora AB103, [id number], LAB15 ####Manufacturing Helper: MARY SOTELO ([phone])[facility] [place] [address] Chloride [Moles/Vol] 100 mmol/L Normal 98-107 [facility] Comment on above: Performed By: #### Dora AB103, [id number], LAB15 ####Manufacturing Helper: MARY SOTELO ([phone])[facility] [place] [address] CO2 [Moles/Vol] 28 mmol/L Normal 22-30 [facility] Comment on above: Performed By: #### Dora AB103, [id number], LAB15 ####Manufacturing Helper: MARY SOTELO ([phone])[facility] ([facility])[address] [place] [address] Creatinine [Mass/Vol] 2.31 mg/dL High 0.52-1.04 [facility] Comment on above: Performed By: #### Dora AB103, [id number], LAB15 ####Manufacturing Helper: MARY SOTELO ([phone])[facility] ([facility])[address] [place] [address] GLOMERULAR FILTRATION RATE ML/MIN/1.73 SQ M.PREDICTED 23.1 mL/min/1.73m*2 Low >60.0 [facility] Comment on above: Result Comment: Calc ulation based on the Chronic Kidney Disease Epidemiology Collaboration (CKD-EPI) equation refit without adjustment for race Performed By: #### L AB103, [id number], LAB15 ####Manufacturing Helper: MARY SOTELO ([phone])[facility] [place] [address] Glucose [Mass/Vol] 152 mg/dL High 70-100 [facility] Comment on above: Performed By: #### L AB103, [id number], LAB15 ####Manufacturing Helper: MARY SOTELO ([phone])[facility] ([facility])[address] [place] [address] Potassium [Moles/Vol] 3.6 mmol/L Normal 3.5-5.1 [facility] Comment on above: Performed By: #### L AB103, [id number], LAB15 ####Manufacturing Helper: MARY SOTELO ([phone])[facility] ([facility])[address] [place] [address] Sodium [Moles/Vol] 132 mmol/L Low 135-145 [facility] Comment on above: Performed By: #### L AB103, [id number], LAB15 ####Manufacturing Helper: MARY SOTELO ([phone])[facility] [place] [address] Urea nitrogen [Mass/Vol] 21 mg/dL High 7-17 [facility] Comment on above: Performed By: #### L AB103, [id number], LAB15 ####Manufacturing Helper: MARY SOTELO ([phone])[facility] ([facility])[address] [place] [address] Bacteria identified Cx Nom ( Bld)on 08-17-2024 Interpretation and review of laboratory results Normal [facility] Basic metabolic 1998 panelon 08-17-2024 Anion gap [Moles/Vol] 5 mmol/L 3 - 13 mmol/L [facility] Calcium [Mass/Vol] 7 mg/dL Low 8.4 - 10. 4 mg/dL [facility] Chloride [Moles/Vol] 100 mmol/L 98 - 10 7 mmol/L [facility] CO2 [Moles/Vol] 28 mmol/L 22 - 30 mmol/L [facility] Creatinine [Mass/Vol] 2.31 mg/dL High 0.52 - 1.04 mg/dL [facility] GFR/1.73 sq M.predicted (S/P/Bld) [Vol rate/Area] 23.1 mL/min Low - PINF [facility] Glucose [Mass/Vol] 152 mg/dL High 70 - 100 mg/dL [facility] Interpretation and review of laboratory results Abnormal [facility] Potassium [Moles/Vol] 3.6 mmol/L 3.5 - 5.1 mmol/L [facility] Sodium [Moles/Vol] 132 mmol/L Low 135 - 145 mmol/L [facility] Urea nitrogen [Mass/Vol] 21 mg/dL High 7 - 17 mg/dL [facility] CALCIUM, IONIZEDon CALCIUM IONIZED 3.80 mg/dL Low 4.30-5.20 [facility] Comment on above: Performed By: #### L [id number] ####Manufacturing Helper: MARY SOTELO ([phone])[facility] [place] [address] PH, IONIZED CALCIUM 7.39 Normal 7.31-7.46 [facility] Comment on above: Performed By: #### L AB54 ####Manufacturing Helper: MARY SOTELO ([phone])[facility] ([facility])[address] [place] [address] CARECOORDon 08-17-2024 [place] Normal [facility] CBC W Auto Differential pane l (Bld)on 08-17-2024 Basophils (Bld) [#/Vol] 0 10*3/uL 0.0 - 0.2 10*3/uL [facility] Basophils/100 WBC (Bld) 0.2 % 0.0 - 2.0 % [facility] Eosinophils (Bld) [#/Vol] 0.1 10*3/uL 0.0 - 0.5 10*3/uL [facility] Eosinophils/100 WBC (Bld) 2.6 % 0.0 - 6.0 % [facility] Erythrocyte distribution width (RBC) [Ratio] 15.8 % High 11.5 - 15.0 % [facility] Hematocrit (Bld) [Volume fraction] 28.7 % Low 35.0 - 47.0 % [facility] Hemoglobin (Bld) [Mass/Vol] 9.1 g/dL Low 11.7 - 16.0 g/dL [facility] Immature granulocytes (Bld) [#/Vol] 0 10*3/uL NINF - 0.1 10*3/uL [facility] Immature granulocytes/100 WBC (Bld) 0.4 % 0.0 - 2.0 % [facility] Interpretation and review of laboratory results Abnormal [facility] IPF 4 [facility] Lymphocytes (Bld) [#/Vol] 0.7 10*3/uL Low 1.0 - 4.3 10*3/uL [facility] Lymphocytes/100 WBC (Bld) 15.7 % 15.0 - 45.0 % [facility] MCH (RBC) [Entitic mass] 29.1 pg 26.0 - 34.0 pg [facility] MCHC (RBC) [Mass/Vol] 31.7 % 30.5 - 36.0 % [facility] MCV (RBC) [Entitic vol] 91.7 fL 77.0 - 99.0 fL [facility] Monocytes (Bld) [#/Vol] 0.3 10*3/uL 0.0 - 0.9 10*3/uL [facility] Monocytes/100 WBC (Bld) 6.8 % 5.0 - 13.0 % [facility] Neutrophils (Bld) [#/Vol] 3.4 10*3/uL 1.8 - 7.5 10*3/uL [facility] Neutrophils/100 WBC (Bld) 74.3 % 38.0 - 82.0 % [facility] Nucleated RBC/100 WBC (Bld) [Ratio] 0 % [facility] Platelet mean volume (Bld) [Entitic vol] 10.7 fL 9.0 - 12.7 fL [facility] Platelets (Bld) [#/Vol] 105 10*3/uL Low 140 - 440 10*3/uL [facility] RBC (Bld) [#/Vol] 3.13 10*6/uL Low 3.80 - 5.2 0 10*6/uL [facility] WBC (Bld) [#/Vol] 4.5 10*3/uL 3.6 - 10.7 10*3/uL [facility] CBC WITH AUTO DIFFERENTIALon 08-17-2024 Basophils (Bld) [#/Vol] 0.0 10*3/uL Normal 0.0-0.2 [facility] Comment on above: Performed By: #### L [id number] ####Manufacturing Helper: MARY SOTELO ([phone])[address] Basophils/100 WBC (Bld) 0.2 % Normal 0.0-2.0 [facility] Comment on above: Performed By: #### L [id number] ####Manufacturing Helper: MARY SOTELO ([phone])[facility])[address] [place] [address] Eosinophils (Bld) [#/Vol] 0.1 10*3/uL Normal 0.0-0.5 [facility] Comment on above: Performed By: #### L [id number] ####Manufacturing Helper: MARY SOTELO ([phone])[address] Eosinophils/100 WBC (Bld) 2.6 % Normal 0.0-6.0 [facility] Comment on above: Performed By: #### L [id number] ####Manufacturing Helper: MARY SOTELO ([phone])[address] Erythrocyte distribution width (RBC) [Ratio] 15.8 % High 11.5-15.0 [facility] Comment on above: Performed By: #### L [id number] ####Manufacturing Helper: MARY SOTELO ([phone])[address] Hematocrit (Bld) [Volume fraction] 28.7 % Low 35.0-47.0 [facility] Comment on above: Performed By: #### L [id number] ####Manufacturing Helper: MARY SOTELO ([phone])[address] Hemoglobin (Bld) [Mass/Vol] 9.1 g/dL Low 11.7-16.0 [facility] Comment on above: Performed By: #### L [id number] ####Manufacturing Helper: MARY SOTELO ([phone])[facility])[address] [place] [address] IMMATURE GRANS % 0.4 % Normal 0.0-2.0 [facility] Comment on above: Performed By: #### L [id number] ####Manufacturing Helper: MARY SOTELO ([phone])[facility])[address] [place] [address] IMMATURE GRANS ABSOLUTE 0.0 10*3/uL Normal <0.1 [facility] Comment on above: Performed By: #### L [id number] ####Manufacturing Helper: MARY SOTELO ([phone])[address] IPF 4 Normal [facility] Comment on above: Performed By: #### L [id number] ####Manufacturing Helper: MARY SOTELO ([phone])[facility])[address] [place] [address] Lymphocytes (Bld) [#/Vol] 0.7 10*3/uL Low 1.0-4.3 [facility] Comment on above: Performed By: #### L [id number] ####Manufacturing Helper: MARY SOTELO ([phone])[address] Lymphocytes/100 WBC (Bld) 15.7 % Normal 15.0-45.0 [facility] Comment on above: Performed By: #### L [id number] ####Manufacturing Helper: MARY SOTELO ([phone])[facility])[address] [place] [address] MCH (RBC) [Entitic mass] 29.1 pg Normal 26.0-34.0 [facility] Comment on above: Performed By: #### L [id number] ####Manufacturing Helper: MARY SOTELO ([phone])[facility])[address] [place] [address] MCHC 31.7 % Normal 30.5-36.0 [facility] Comment on above: Performed By: #### L [id number] ####Manufacturing Helper: MARY SOTELO ([phone])[facility])[address] [place] [address] MCV (RBC) [Entitic vol] 91.7 fL Normal 77.0-99.0 [facility] Comment on above: Performed By: #### L [id number] ####Manufacturing Helper: MARY SOTELO ([phone])[facility])[address] [place] [address] Monocytes (Bld) [#/Vol] 0.3 10*3/uL Normal 0.0-0.9 [facility] Comment on above: Performed By: #### L [id number] ####Manufacturing Helper: MARY SOTELO ([phone])[facility])[address] [place] [address] Monocytes/100 WBC (Bld) 6.8 % Normal 5.0-13.0 [facility] Comment on above: Performed By: #### L [id number] ####Manufacturing Helper: MARY SOTELO ([phone])[facility])[address] [place] [address] NEUTROPHILS ABSOLUTE 3.4 10*3/uL Normal 1.8-7.5 [facility] Comment on above: Performed By: #### L [id number] ####Manufacturing Helper: MARY SOTELO ([phone])[facility])[address] [place] [address] Neutrophils/100 WBC (Bld) 74.3 % Normal 38.0-82.0 [facility] Comment on above: Performed By: #### L [id number] ####Manufacturing Helper: MARY SOTELO ([phone])[facility])[address] [place] [address] NRBC 0.0 /100 WBCs Normal 0.0-2.0 [facility] Comment on above: Performed By: #### L [id number] ####Manufacturing Helper: MARY SOTELO ([phone])[facility] ([facility])[address] [place] [address] Platelet mean volume (Bld) [Entitic vol] 10.7 fL Normal 9.0-12.7 [facility] Comment on above: Performed By: #### L [id number] ####Manufacturing Helper: MARY SOTELO ([phone])[facility] ([facility])[address] [place] [address] Platelets (Bld) [#/Vol] 105 10*3/uL Low 140-440 [facility] Comment on above: Performed By: #### L [id number] ####Manufacturing Helper: MARY SOTELO ([phone])[facility] ([facility])[address] [place] [address] RBC (Bld) [#/Vol] 3.13 10*6/uL Low 3.80-5.20 [facility] Comment on above: Performed By: #### L [id number] ####Manufacturing Helper: MARY SOTELO ([phone])[facility] ([facility])[address] [place] [address] WBC (Bld) [#/Vol] 4.5 10*3/uL Normal 3.6-10.7 [facility] Comment on above: Performed By: #### L [id number] ####Manufacturing Helper: MARY SOTELO ([phone])[facility] ([facility])[address] [place] [address] Calcium.ionized [Moles/Vol]o n 08-17-2024 Calcium.ionized (Bld) [Moles/Vol] 3.8 mg/dL Low 4.30 - 5.20 mg/dL [facility] Interpretation and review of laboratory results Abnormal [facility] PH, IONIZED CALCIUM 7.39 7.31 - 7.46 [facility] IDNon 08-17-2024 IDN Normal [facility] - Chemistry and C hemistry - challengeon 08-17-2024 Glucose [Mass/Vol] 178 mg/dL High 70 - 100 mg/dL [facility] Glucose [Mass/Vol] 112 mg/dL High 70 - 100 mg/dL [facility] Glucose [Mass/Vol] 213 mg/dL High 70 - 100 mg/dL [facility] Glucose [Mass/Vol] 286 mg/dL High 70 - 100 mg/dL [facility] Magnesium [Mass/Vol] 2 mg/dL 1.6 - 2 .3 mg/dL [facility] - Microbiology an d Antimicrobial susceptibilityon 08-17-2024 Bacteria identified Cx Nom (Bld) No growth at 5 days [facility] MAGNESIUMon 08-17-2024 Magnesium [Mass/Vol] 2.0 mg/dL Normal 1.6-2.3 [facility] Comment on above: Performed By: #### L AB103, [id number], LAB15 ####Manufacturing Helper: MARY SOTELO ([phone])[facility] ([facility])[address] [place] [address] No Panel Informationon 08-17 Interpretation and review of laboratory results Abnormal [facility] Interpretation and review of laboratory results Abnormal [facility] Interpretation and review of laboratory results Abnormal [facility] Interpretation and review of laboratory results Abnormal [facility] Interpretation and review of laboratory results Normal [facility] PHOSPHORUSon 08-17-2024 Phosphate [Mass/Vol] 2.8 mg/dL Normal 2.5-4.5 [facility] Comment on above: Performed By: #### L AB103, [id number], LAB15 ####Manufacturing Helper: MARY SOTELO ([phone])[facility] ([facility])[address] [place] [address] Phosphate [Moles/Vol]on 08-03 Phosphate [Mass/Vol] 2.8 mg/dL 2.5 - 4 .5 mg/dL [facility] Progress Noteon 08-17-2024 Progress Note Normal [facility] Normal [facility] Progress Note Normal [facility] Progress Note Normal [facility] BASIC METABOLIC PANELon 08-03 Anion gap [Moles/Vol] 6 mmol/L Normal 3-13 [facility] Comment on above: Performed By: #### L AB103, [id number], LAB15 ####Manufacturing Helper: MARY SOTELO ([phone])[facility])[address] [place] [address] Calcium [Mass/Vol] 7.2 mg/dL Low 8.4-10.4 [facility] Comment on above: Performed By: #### L AB103, [id number], LAB15 ####Manufacturing Helper: MARY SOTELO ([phone])[facility] [place] [address] Chloride [Moles/Vol] 98 mmol/L Normal 98-107 [facility] Comment on above: Performed By: #### Dora AB103, [id number], LAB15 ####Manufacturing Helper: MARY SOTELO ([phone])[facility] ([facility])[address] [place] [address] CO2 [Moles/Vol] 27 mmol/L Normal 22-30 [facility] Comment on above: Performed By: #### Dora AB103, [id number], LAB15 ####Manufacturing Helper: MARY SOTELO ([phone])[facility] ([facility])[address] [place] [address] Creatinine [Mass/Vol] 3.90 mg/dL High 0.52-1.04 [facility] Comment on above: Performed By: #### L AB103, [id number], LAB15 ####Manufacturing Helper: MARY SOTELO ([phone])[facility])[address] [place] [address] GLOMERULAR FILTRATION RATE ML/MIN/1.73 SQ M.PREDICTED 12.3 mL/min/1.73m*2 Low >60.0 [facility] Comment on above: Result Comment: Calc ulation based on the Chronic Kidney Disease Epidemiology Collaboration (CKD-EPI) equation refit without adjustment for race Performed By: #### L AB103, [id number], LAB15 ####Manufacturing Helper: MARY SOTELO ([phone])[facility])[address] Glucose [Mass/Vol] 362 mg/dL High 70-100 [facility] Comment on above: Performed By: #### L AB103, [id number], LAB15 ####Manufacturing Helper: MARY SOTELO ([phone])[facility] ([facility])[address] [place] [address] Potassium [Moles/Vol] 4.1 mmol/L Normal 3.5-5.1 [facility] Comment on above: Performed By: #### L AB103, [id number], LAB15 ####Manufacturing Helper: MARY SOTELO ([phone])[facility] ([facility])[address] [place] [address] Sodium [Moles/Vol] 131 mmol/L Low 135-145 [facility] Comment on above: Performed By: #### L AB103, [id number], LAB15 ####Manufacturing Helper: MARY SOTELO ([phone])[facility] ([facility])[address] [place] [address] Urea nitrogen [Mass/Vol] 38 mg/dL High 7-17 [facility] Comment on above: Performed By: #### L AB103, [id number], LAB15 ####Manufacturing Helper: MARY SOTELO ([phone])[facility])[address] [place] [address] Bacteria identified Cx Nom ( U)Ordered By: Matilde Ronquillo on 08-16-2024 Interpretation and review of laboratory results Abnormal [facility] Basic metabolic 1998 panelon 08-16-2024 Anion gap [Moles/Vol] 6 mmol/L 3 - 13 mmol/L [facility] Calcium [Mass/Vol] 7.2 mg/dL Low 8.4 - 10. 4 mg/dL [facility] Chloride [Moles/Vol] 98 mmol/L 98 - 10 7 mmol/L [facility] CO2 [Moles/Vol] 27 mmol/L 22 - 30 mmol/L [facility] Creatinine [Mass/Vol] 3.9 mg/dL High 0.52 - 1.04 mg/dL [facility] GFR/1.73 sq M.predicted (S/P/Bld) [Vol rate/Area] 12.3 mL/min Low - PINF [facility] Glucose [Mass/Vol] 362 mg/dL High 70 - 100 mg/dL [facility] Interpretation and review of laboratory results Abnormal [facility] Potassium [Moles/Vol] 4.1 mmol/L 3.5 - 5.1 mmol/L [facility] Sodium [Moles/Vol] 131 mmol/L Low 135 - 145 mmol/L [facility] Urea nitrogen [Mass/Vol] 38 mg/dL High 7 - 17 mg/dL [facility] CALCIUM, IONIZEDon CALCIUM IONIZED 4.20 mg/dL Low 4.30-5.20 [facility] Comment on above: Performed By: #### L [id number] ####Manufacturing Helper: MARY SOTELO ([phone])[facility] ([facility])[address] [place] [address] PH, IONIZED CALCIUM 7.16 Low 7.31-7.46 [facility] Comment on above: Performed By: #### L AB54 ####Manufacturing Helper: MARY SOTELO ([phone])[facility] ([facility])[address] [place] [address] CARECOORDon 08-16-2024 CARECOORD Normal [facility] CBC W Auto Differential pane l (Bld)on 08-16-2024 Basophils (Bld) [#/Vol] 0 10*3/uL 0.0 - 0.2 10*3/uL [facility] Basophils/100 WBC (Bld) 0.2 % 0.0 - 2.0 % [facility] Eosinophils (Bld) [#/Vol] 0 10*3/uL 0.0 - 0.5 10*3/uL [facility] Eosinophils/100 WBC (Bld) 0.4 % 0.0 - 6.0 % [facility] Erythrocyte distribution width (RBC) [Ratio] 15.8 % High 11.5 - 15.0 % [facility] Hematocrit (Bld) [Volume fraction] 30 % Low 35.0 - 47.0 % [facility] Hemoglobin (Bld) [Mass/Vol] 9.7 g/dL Low 11.7 - 16.0 g/dL [facility] Immature granulocytes (Bld) [#/Vol] 0 10*3/uL NINF - 0.1 10*3/uL [facility] [employer] Immature granulocytes/100 WBC (Bld) 0.6 % 0.0 - 2.0 % [facility] Interpretation and review of laboratory results Abnormal [facility] Lymphocytes (Bld) [#/Vol] 0.5 10*3/uL Low 1.0 - 4.3 10*3/uL [facility] Lymphocytes/100 WBC (Bld) 10.1 % Low 15.0 - 45.0 % [facility] MCH (RBC) [Entitic mass] 29.6 pg 26.0 - 34.0 pg [facility] MCHC (RBC) [Mass/Vol] 32.3 % 30.5 - 36.0 % [facility] MCV (RBC) [Entitic vol] 91.5 fL 77.0 - 99.0 fL [facility] Monocytes (Bld) [#/Vol] 0.3 10*3/uL 0.0 - 0.9 10*3/uL [facility] Monocytes/100 WBC (Bld) 6.9 % 5.0 - 13.0 % [facility] Neutrophils (Bld) [#/Vol] 3.9 10*3/uL 1.8 - 7.5 10*3/uL [facility] Neutrophils/100 WBC (Bld) 81.8 % 38.0 - 82.0 % [facility] Nucleated RBC/100 WBC (Bld) [Ratio] 0 % [facility] Platelet mean volume (Bld) [Entitic vol] 10.2 fL 9.0 - 12.7 fL [facility] Platelets (Bld) [#/Vol] 104 10*3/uL Low 140 - 440 10*3/uL [facility] RBC (Bld) [#/Vol] 3.28 10*6/uL Low 3.80 - 5.2 0 10*6/uL [facility] WBC (Bld) [#/Vol] 4.8 10*3/uL 3.6 - 10.7 10*3/uL [facility] CBC WITH AUTO DIFFERENTIALon 08-16-2024 Basophils (Bld) [#/Vol] 0.0 10*3/uL Normal 0.0-0.2 [facility] Comment on above: Performed By: #### L [id number] ####Manufacturing Helper: MARY SOTELO ([phone])[facility])[address] [place] [address] Basophils/100 WBC (Bld) 0.2 % Normal 0.0-2.0 [facility] Comment on above: Performed By: #### L [id number] ####Manufacturing Helper: MARY SOTELO ([phone])[facility])[address] [place] [address] Eosinophils (Bld) [#/Vol] 0.0 10*3/uL Normal 0.0-0.5 [facility] Comment on above: Performed By: #### L [id number] ####Manufacturing Helper: MARY SOTELO ([phone])[address] Eosinophils/100 WBC (Bld) 0.4 % Normal 0.0-6.0 [facility] Comment on above: Performed By: #### L [id number] ####Manufacturing Helper: MARY SOTELO ([phone])[facility])[address] [place] [address] Erythrocyte distribution width (RBC) [Ratio] 15.8 % High 11.5-15.0 [facility] Comment on above: Performed By: #### L [id number] ####Manufacturing Helper: MARY SOTELO ([phone])[address] Hematocrit (Bld) [Volume fraction] 30.0 % Low 35.0-47.0 [facility] Comment on above: Performed By: #### L [id number] ####Manufacturing Helper: MARY SOTELO ([phone])[address] Hemoglobin (Bld) [Mass/Vol] 9.7 g/dL Low 11.7-16.0 [facility] Comment on above: Performed By: #### L [id number] ####Manufacturing Helper: MARY [phone])[facility] ([facility])[address] [place] [address] IMMATURE GRANS % 0.6 % Normal 0.0-2.0 [facility] Comment on above: Performed By: #### L [id number] ####Manufacturing Helper: MARY SOTELO ([phone])[facility])[address] [place] [address] IMMATURE GRANS ABSOLUTE 0.0 10*3/uL Normal <0.1 [facility] Comment on above: Performed By: #### L [id number] ####Manufacturing Helper: MARY SOTELO ([phone])[facility])[address] [place] [address] Lymphocytes (Bld) [#/Vol] 0.5 10*3/uL Low 1.0-4.3 [facility] Comment on above: Performed By: #### L [id number] ####Manufacturing Helper: MARY SOTELO ([phone])[facility])[address] [place] [address] Lymphocytes/100 WBC (Bld) 10.1 % Low 15.0-45.0 [facility] Comment on above: Performed By: #### L [id number] ####Manufacturing Helper: MARY SOTELO ([phone])[facility])[address] [place] [address] MCH (RBC) [Entitic mass] 29.6 pg Normal 26.0-34.0 [facility] Comment on above: Performed By: #### L [id number] ####Manufacturing Helper: MARY SOTELO ([phone])[facility])[address] [place] [address] MCHC 32.3 % Normal 30.5-36.0 [facility] Comment on above: Performed By: #### L [id number] ####Manufacturing Helper: MARY SOTELO ([phone])[facility])[address] [place] [address] MCV (RBC) [Entitic vol] 91.5 fL Normal 77.0-99.0 [facility] Comment on above: Performed By: #### L [id number] ####Manufacturing Helper: MARY SOTELO ([phone])[facility])[address] [place] [address] Monocytes (Bld) [#/Vol] 0.3 10*3/uL Normal 0.0-0.9 [facility] Comment on above: Performed By: #### L [id number] ####Manufacturing Helper: MARY SOTELO ([phone])[facility] ([facility])[address] [place] [address] Monocytes/100 WBC (Bld) 6.9 % Normal 5.0-13.0 [facility] Comment on above: Performed By: #### L [id number] ####Manufacturing Helper: MARY SOTELO ([phone])[facility])[address] [place] [address] NEUTROPHILS ABSOLUTE 3.9 10*3/uL Normal 1.8-7.5 [facility] Comment on above: Performed By: #### L [id number] ####Manufacturing Helper: MARY SOTELO ([phone])[facility] ([facility])[address] [place] [address] Neutrophils/100 WBC (Bld) 81.8 % Normal 38.0-82.0 [facility] Comment on above: Performed By: #### L [id number] ####Manufacturing Helper: MARY SOTELO ([phone])[facility])[address] [place] [address] NRBC 0.0 /100 WBCs Normal 0.0-2.0 [facility] Comment on above: Performed By: #### L [id number] ####Manufacturing Helper: MARY SOTELO ([phone])[facility])[address] [place] [address] Platelet mean volume (Bld) [Entitic vol] 10.2 fL Normal 9.0-12.7 [facility] Comment on above: Performed By: #### L [id number] ####Manufacturing Helper: MARY SOTELO ([phone])[facility] ([facility])[address] [place] [address] Platelets (Bld) [#/Vol] 104 10*3/uL Low 140-440 [facility] Comment on above: Performed By: #### L [id number] ####Manufacturing Helper: MARY SOTELO ([phone])[facility] ([facility])[address] [place] [address] RBC (Bld) [#/Vol] 3.28 10*6/uL Low 3.80-5.20 [facility] Comment on above: Performed By: #### L [id number] ####Manufacturing Helper: MARY SOTELO ([phone])[facility] ([facility])[address] [place] [address] WBC (Bld) [#/Vol] 4.8 10*3/uL Normal 3.6-10.7 [facility] Comment on above: Performed By: #### L [id number] ####Manufacturing Helper: MARY SOTELO ([phone])[facility] ([facility])[address] [place] [address] Calcium.ionized [Moles/Vol]o n 08-16-2024 Calcium.ionized (Bld) [Moles/Vol] 4.2 mg/dL Low 4.30 - 5.20 mg/dL [facility] Interpretation and review of laboratory results Abnormal [facility] PH, IONIZED CALCIUM 7.16 Low 7.31 - 7.46 [facility] IDNon 08-16-2024 IDN Normal [facility] Laboratory - Chemistry and C hemistry - challengeon 08-16-2024 Glucose [Mass/Vol] 174 mg/dL High 70 - 100 mg/dL [facility] Glucose [Mass/Vol] 163 mg/dL High 70 - 100 mg/dL [facility] Glucose [Mass/Vol] 350 mg/dL High 70 - 100 mg/dL [facility] Glucose [Mass/Vol] 405 mg/dL High 70 - 100 mg/dL [facility] Magnesium [Mass/Vol] 2.2 mg/dL 1.6 - 2 .3 mg/dL [facility] Laboratory - Microbiology an d Antimicrobial susceptibilityOrdered By: Matilde Ronquillo on 08-16-2024 Bacteria identified Cx Nom (U) >100,000 CFU/mL Abbi albicans Abnormal [facility] MAGNESIUMon 08-16-2024 Magnesium [Mass/Vol] 2.2 mg/dL Normal 1.6-2.3 [facility] Comment on above: Performed By: #### L [id number], [id number], LAB15 ####Manufacturing Helper: MARY SOTELO ([phone])[facility])[address] [place] [address] No Panel Informationon 08-16 Interpretation and review of laboratory results Abnormal [facility] Interpretation and review of laboratory results Abnormal [facility] Interpretation and review of laboratory results Abnormal [facility] Interpretation and review of laboratory results Abnormal [facility] Interpretation and review of laboratory results Normal [facility] Nursing Noteon 08-16-2024 Nursing Note Normal [facility] PHOSPHORUSon 08-16-2024 Phosphate [Mass/Vol] 4.5 mg/dL Normal 2.5-4.5 [facility] Comment on above: Performed By: #### L AB103, [id number], LAB15 ####Manufacturing Helper: MARY SOTELO ([phone])[facility] ([facility])[address] [place] [address] Phosphate [Moles/Vol]on 08-03 Phosphate [Mass/Vol] 4.5 mg/dL 2.5 - 4 .5 mg/dL [facility] Progress Noteon 08-16-2024 Progress Note Normal [facility] Progress Note Normal [facility] Progress Note Normal [facility] Progress Note Normal [facility] BASIC METABOLIC PANELon 08-03 Anion gap [Moles/Vol] 8 mmol/L Normal 3-13 [facility] Comment on above: Performed By: #### L AB113, [id number], LAB15 ####Manufacturing Helper: MARY SOTELO ([phone])[facility] ([facility])[address] [place] [address] [place] Calcium [Mass/Vol] 7.1 mg/dL Low 8.4-10.4 [facility] Comment on above: Performed By: #### L AB113, [id number], LAB15 ####Manufacturing Helper: MARY SOTELO ([phone])[facility] [place] [address] [place] Chloride [Moles/Vol] 100 mmol/L Normal 98-107 [facility] Comment on above: Performed By: #### L AB113, [id number], LAB15 ####Manufacturing Helper: MARY SOTELO ([phone])[facility] ([facility])[address] [place] [address] CO2 [Moles/Vol] 22 mmol/L Normal 22-30 [facility] Comment on above: Performed By: #### Dora ABGabbie, [id number], LAB15 ####Manufacturing Helper: MARY SOTELO ([phone])[facility] ([facility])[address] [place] [address] Creatinine [Mass/Vol] 2.97 mg/dL High 0.52-1.04 [facility] Comment on above: Performed By: #### Dora ABGabbie, [id number], LAB15 ####Manufacturing Helper: MARY SOTELO ([phone])[facility] ([facility])[address] [place] [address] [place] GLOMERULAR FILTRATION RATE ML/MIN/1.73 SQ M.PREDICTED 17.1 mL/min/1.73m*2 Low >60.0 [facility] Comment on above: Result Comment: Calc ulation based on the Chronic Kidney Disease Epidemiology Collaboration (CKD-EPI) equation refit without adjustment for race Performed By: #### L AB113, [id number], LAB15 ####Manufacturing Helper: MARY SOTELO ([phone])[facility] ([facility])[address] [place] [address] [place] Glucose [Mass/Vol] 270 mg/dL High 70-100 [facility] Comment on above: Performed By: #### L AB113, [id number], LAB15 ####Manufacturing Helper: MARY SOTELO ([phone])[facility])[address] [place] [address] Potassium [Moles/Vol] 3.9 mmol/L Normal 3.5-5.1 [facility] Comment on above: Performed By: #### L AB113, [id number], LAB15 ####Manufacturing Helper: MARY SOTELO ([phone])[facility])[address] [place] [address] Sodium [Moles/Vol] 130 mmol/L Low 135-145 [facility] Comment on above: Performed By: #### L AB113, [id number], LAB15 ####Manufacturing Helper: MARY SOTELO ([phone])[facility])[address] [place] [address] Urea nitrogen [Mass/Vol] 27 mg/dL High 7-17 [facility] Comment on above: Performed By: #### L AB113, [id number], LAB15 ####Manufacturing Helper: MARY SOTELO ([phone])[facility] ([facility])[address] [place] [address] Bacteria identified Cx Nom ( Bld)Ordered By: Kaitlyn Corona on 08-15-2024 Interpretation and review of laboratory results Abnormal [facility] Basic metabolic 1998 panelOr dered By: Deirdre Maciel on 08-15-2024 Anion gap [Moles/Vol] 8 mmol/L 3 - 13 mmol/L [facility] Calcium [Mass/Vol] 7.1 mg/dL Low 8.4 - 10. 4 mg/dL [facility] Chloride [Moles/Vol] 100 mmol/L 98 - 10 7 mmol/L [facility] CO2 [Moles/Vol] 22 mmol/L 22 - 30 mmol/L [facility] Creatinine [Mass/Vol] 2.97 mg/dL High 0.52 - 1.04 mg/dL [facility] GFR/1.73 sq M.predicted (S/P/Bld) [Vol rate/Area] 17.1 mL/min Low - PINF [facility] Glucose [Mass/Vol] 270 mg/dL High 70 - 100 mg/dL [facility] Interpretation and review of laboratory results Abnormal [facility] Potassium [Moles/Vol] 3.9 mmol/L 3.5 - 5.1 mmol/L [facility] Sodium [Moles/Vol] 130 mmol/L Low 135 - 145 mmol/L [facility] Urea nitrogen [Mass/Vol] 27 mg/dL High 7 - 17 mg/dL [facility] CALCIUM, IONIZEDon CALCIUM IONIZED 3.90 mg/dL Low 4.30-5.20 [facility] Comment on above: Performed By: #### L [id number] ####Manufacturing Helper: MARY SOTELO ([phone])[facility] ([facility])[address] [place] [address] PH, IONIZED CALCIUM 7.29 Low 7.31-7.46 [facility] Comment on above: Performed By: #### L AB54 ####Manufacturing Helper: MARY SOTELO ([phone])[facility] ([facility])[address] [place] [address] CBC W Auto Differential pane l (Bld)Ordered By: Olamide Orozco on 08-15-2024 Basophils (Bld) [#/Vol] 0 10*3/uL 0.0 - 0.2 10*3/uL [facility] Basophils/100 WBC (Bld) 0.2 % 0.0 - 2.0 % [facility] Eosinophils (Bld) [#/Vol] 0 10*3/uL 0.0 - 0.5 10*3/uL [facility] Eosinophils/100 WBC (Bld) 0.6 % 0.0 - 6.0 % [facility] Erythrocyte distribution width (RBC) [Ratio] 15.9 % High 11.5 - 15.0 % [facility] Hematocrit (Bld) [Volume fraction] 30.3 % Low 35.0 - 47.0 % [facility] Hemoglobin (Bld) [Mass/Vol] 9.5 g/dL Low 11.7 - 16.0 g/dL [facility] Immature granulocytes (Bld) [#/Vol] 0 10*3/uL NINF - 0.1 10*3/uL [facility] Immature granulocytes/100 WBC (Bld) 0.8 % 0.0 - 2.0 % [facility] Interpretation and review of laboratory results Abnormal [facility] IPF 4 [facility] Lymphocytes (Bld) [#/Vol] 0.6 10*3/uL Low 1.0 - 4.3 10*3/uL [facility] Lymphocytes/100 WBC (Bld) 12.7 % Low 15.0 - 45.0 % [facility] MCH (RBC) [Entitic mass] 29 pg 26.0 - 34.0 pg [facility] MCHC (RBC) [Mass/Vol] 31.4 % 30.5 - 36.0 % [facility] MCV (RBC) [Entitic vol] 92.4 fL 77.0 - 99.0 fL [facility] Monocytes (Bld) [#/Vol] 0.4 10*3/uL 0.0 - 0.9 10*3/uL [facility] Monocytes/100 WBC (Bld) 7.3 % 5.0 - 13.0 % [facility] Neutrophils (Bld) [#/Vol] 3.9 10*3/uL 1.8 - 7.5 10*3/uL [facility] Neutrophils/100 WBC (Bld) 78.4 % 38.0 - 82.0 % [facility] Nucleated RBC/100 WBC (Bld) [Ratio] 0 % [facility] Platelet mean volume (Bld) [Entitic vol] 10.1 fL 9.0 - 12.7 fL [facility] Platelets (Bld) [#/Vol] 90 10*3/uL Low 140 - 440 10*3/uL [facility] RBC (Bld) [#/Vol] 3.28 10*6/uL Low 3.80 - 5.2 0 10*6/uL [facility] WBC (Bld) [#/Vol] 5 10*3/uL 3.6 - 10.7 10*3/uL [facility] CBC WITH AUTO DIFFERENTIALon 08-15-2024 Basophils (Bld) [#/Vol] 0.0 10*3/uL Normal 0.0-0.2 [facility] Comment on above: Performed By: #### L [id number] ####Manufacturing Helper: MARY SOTELO ([phone])[facility] ([address] Basophils/100 WBC (Bld) 0.2 % Normal 0.0-2.0 [facility] Comment on above: Performed By: #### L [id number] ####Manufacturing Helper: MARY SOTELO ([phone])[facility])[address] [place] [address] Eosinophils (Bld) [#/Vol] 0.0 10*3/uL Normal 0.0-0.5 [facility] Comment on above: Performed By: #### L [id number] ####Manufacturing Helper: MARY SOTELO ([phone])[address] Eosinophils/100 WBC (Bld) 0.6 % Normal 0.0-6.0 [facility] Comment on above: Performed By: #### L [id number] ####Manufacturing Helper: MARY SOTELO ([phone])[facility])[address] [place] [address] Erythrocyte distribution width (RBC) [Ratio] 15.9 % High 11.5-15.0 [facility] Comment on above: Performed By: #### L [id number] ####Manufacturing Helper: MARY SOTELO ([phone])[address] Hematocrit (Bld) [Volume fraction] 30.3 % Low 35.0-47.0 [facility] Comment on above: Performed By: #### L [id number] ####Manufacturing Helper: MARY SOTELO ([phone])[address] Hemoglobin (Bld) [Mass/Vol] 9.5 g/dL Low 11.7-16.0 [facility] Comment on above: Performed By: #### L [id number] ####Manufacturing Helper: MARY SOTELO ([phone])[address] IMMATURE GRANS % 0.8 % Normal 0.0-2.0 [facility] [facility] Comment on above: Performed By: #### L [id number] ####Manufacturing Helper: MARY SOTELO ([phone])[facility])[address] [place] [address] IMMATURE GRANS ABSOLUTE 0.0 10*3/uL Normal <0.1 [facility] Comment on above: Performed By: #### L [id number] ####Manufacturing Helper: MARY SOTELO ([phone])[facility])[address] [place] [address] IPF 4 Normal [facility] Comment on above: Performed By: #### L [id number] ####Manufacturing Helper: MARY SOTELO ([phone])[address] Lymphocytes (Bld) [#/Vol] 0.6 10*3/uL Low 1.0-4.3 [facility] Comment on above: Performed By: #### L [id number] ####Manufacturing Helper: MARY SOTELO ([phone])[address] Lymphocytes/100 WBC (Bld) 12.7 % Low 15.0-45.0 [facility] Comment on above: Performed By: #### L [id number] ####Manufacturing Helper: MARY SOTELO ([phone])[address] MCH (RBC) [Entitic mass] 29.0 pg Normal 26.0-34.0 [facility] Comment on above: Performed By: #### L [id number] ####Manufacturing Helper: MARY SOTELO ([phone])[address] MCHC 31.4 % Normal 30.5-36.0 [facility] Comment on above: Performed By: #### L [id number] ####Manufacturing Helper: MARY SOTELO ([phone])[address] [place] [address] [place] MCV (RBC) [Entitic vol] 92.4 fL Normal 77.0-99.0 [facility] Comment on above: Performed By: #### L [id number] ####Manufacturing Helper: MARY SOTELO ([phone])[facility])[address] [place] [address] Monocytes (Bld) [#/Vol] 0.4 10*3/uL Normal 0.0-0.9 [facility] Comment on above: Performed By: #### L [id number] ####Manufacturing Helper: MARY SOTELO ([phone])[facility])[address] [place] [address] Monocytes/100 WBC (Bld) 7.3 % Normal 5.0-13.0 [facility] Comment on above: Performed By: #### L [id number] ####Manufacturing Helper: MARY SOTELO ([phone])[facility])[address] [place] [address] NEUTROPHILS ABSOLUTE 3.9 10*3/uL Normal 1.8-7.5 [facility] Comment on above: Performed By: #### L [id number] ####Manufacturing Helper: MARY SOTELO ([phone])[facility])[address] [place] [address] Neutrophils/100 WBC (Bld) 78.4 % Normal 38.0-82.0 [facility] Comment on above: Performed By: #### L [id number] ####Manufacturing Helper: MARY SOTELO ([phone])[facility])[address] [place] [address] NRBC 0.0 /100 WBCs Normal 0.0-2.0 [facility] Comment on above: Performed By: #### L [id number] ####Manufacturing Helper: MARY SOTELO ([phone])[facility] ([facility])[address] [place] [address] Platelet mean volume (Bld) [Entitic vol] 10.1 fL Normal 9.0-12.7 [facility] Comment on above: Performed By: #### L [id number] ####Manufacturing Helper: MARY SOTELO ([phone])[facility] ([facility])[address] [place] [address] Platelets (Bld) [#/Vol] 90 10*3/uL Low 140-440 [facility] Comment on above: Performed By: #### L [id number] ####Manufacturing Helper: MARY SOTELO ([phone])[facility] ([facility])[address] [place] [address] RBC (Bld) [#/Vol] 3.28 10*6/uL Low 3.80-5.20 [facility] Comment on above: Performed By: #### L [id number] ####Manufacturing Helper: MARY SOTELO ([phone])[facility] ([facility])[address] [place] [address] WBC (Bld) [#/Vol] 5.0 10*3/uL Normal 3.6-10.7 [facility] Comment on above: Performed By: #### L [id number] ####Manufacturing Helper: MARY SOTELO ([phone])[facility] ([facility])[address] [place] [address] Calcium.ionized [Moles/Vol]O rdered By: Nicole Lakhani on 08-15-2024 Calcium.ionized (Bld) [Moles/Vol] 3.9 mg/dL Low 4.30 - 5.20 mg/dL [facility] Interpretation and review of laboratory results Abnormal [facility] PH, IONIZED CALCIUM 7.29 Low 7.31 - 7.46 [facility] IDNon 08-15-2024 IDN Normal [facility] - Chemistry and C hemistry - challengeon 08-15-2024 Glucose [Mass/Vol] 344 mg/dL High 70 - 100 mg/dL [facility] Glucose [Mass/Vol] 368 mg/dL High 70 - 100 mg/dL [facility] Glucose [Mass/Vol] 340 mg/dL High 70 - 100 mg/dL [facility] Glucose [Mass/Vol] 302 mg/dL High 70 - 100 mg/dL [facility] Magnesium [Mass/Vol] 2.1 mg/dL 1.6 - 2 .3 mg/dL [facility] - Microbiology an d Antimicrobial susceptibilityOrdered By: Kaitlyn Corona on 08-15-2024 Bacteria identified Cx Nom (Bld) Staphylococcus epidermidis Critically abnormal [facility] - Miscellaneous t estson 08-15-2024 Service comment (Unsp spec) [Interp] 0.052 [facility] - Serology - non- microon 08-15-2024 Heparin induced platelet Ab Ql (S) Negative Negative [facility] MAGNESIUMon 08-15-2024 Magnesium [Mass/Vol] 2.1 mg/dL Normal 1.6-2.3 [facility] Comment on above: Performed By: #### L AB113, [id number], LAB15 ####Manufacturing Helper: MARY SOTELO ([phone])[facility] ([facility])[address] [place] [address] No Panel Informationon 08-15 Interpretation and review of laboratory results Abnormal [facility] Interpretation and review of laboratory results Abnormal [facility] Interpretation and review of laboratory results Abnormal [facility] Interpretation and review of laboratory results Abnormal [facility] Interpretation and review of laboratory results Normal [facility] PHOSPHORUSon 08-15-2024 Phosphate [Mass/Vol] 4.5 mg/dL Normal 2.5-4.5 [facility] Comment on above: Performed By: #### L AB113, [id number], LAB15 ####Manufacturing Helper: MARY SOTELO ([phone])[facility] ([facility])[address] [place] [address] Phosphate [Moles/Vol]on 08-03 Phosphate [Mass/Vol] 4.5 mg/dL 2.5 - 4 .5 mg/dL [facility] Progress Noteon 08-15-2024 Progress Note Normal [facility] Progress Note Normal [facility] BASIC METABOLIC PANELon 08-03 Anion gap [Moles/Vol] 10 mmol/L Normal 3-13 [facility] Comment on above: Performed By: #### L AB113, [id number], LAB15 ####Manufacturing Helper: MARY SOTELO ([phone])[facility])[address] [place] [address] Calcium [Mass/Vol] 6.8 mg/dL Low 8.4-10.4 [facility] Comment on above: Performed By: #### L AB113, [id number], LAB15 ####Manufacturing Helper: MARY SOTELO ([phone])[facility] [place] [address] Chloride [Moles/Vol] 96 mmol/L Low 98-107 [facility] Comment on above: Performed By: #### L AB113, [id number], LAB15 ####Manufacturing Helper: MARY SOTELO ([phone])[facility] [place] [address] CO2 [Moles/Vol] 25 mmol/L Normal 22-30 [facility] Comment on above: Performed By: #### L AB113, [id number], LAB15 ####Manufacturing Helper: MARY SOTELO ([phone])[facility] [place] [address] Creatinine [Mass/Vol] 1.91 mg/dL High 0.52-1.04 [facility] Comment on above: Performed By: #### L AB113, [id number], LAB15 ####Manufacturing Helper: MARY SOTELO ([phone])[facility])[address] [place] [address] GLOMERULAR FILTRATION RATE ML/MIN/1.73 SQ M.PREDICTED 29.0 mL/min/1.73m*2 Low >60.0 [facility] Comment on above: Result Comment: Calc ulation based on the Chronic Kidney Disease Epidemiology Collaboration (CKD-EPI) equation refit without adjustment for race Performed By: #### L AB113, [id number], LAB15 ####Manufacturing Helper: MARY SOTELO ([phone])[facility])[address] [place] [address] Glucose [Mass/Vol] 361 mg/dL High 70-100 [facility] Comment on above: Performed By: #### L AB113, [id number], LAB15 ####Manufacturing Helper: MARY SOTELO ([phone])[facility])[address] [place] [address] Potassium [Moles/Vol] 3.5 mmol/L Normal 3.5-5.1 [facility] Comment on above: Performed By: #### L AB113, [id number], LAB15 ####Manufacturing Helper: MARY SOTELO ([phone])[facility])[address] [place] [address] Sodium [Moles/Vol] 130 mmol/L Low 135-145 [facility] Comment on above: Performed By: #### L AB113, [id number], LAB15 ####Manufacturing Helper: MARY SOTELO ([phone])[facility] ([facility])[address] [place] [address] Urea nitrogen [Mass/Vol] 18 mg/dL High 7-17 [facility] Comment on above: Performed By: #### L AB113, [id number], LAB15 ####Manufacturing Helper: MARY SOTELO ([phone])[facility])[address] [place] [address] BLOOD CULTUREon 08-14-2024 Bacteria identified Cx Nom (Bld) Normal [facility] Comment on above: Performed By: #### L [id number] ####Manufacturing Helper: MARY SOTELO ([phone])[facility])[address] [place] [address] Bacteria identified Cx Nom (Bld) Normal [facility] Comment on above: Performed By: #### L [id number] ####Manufacturing Helper: MAYR SOTELO ([phone])[facility])[address] [place] [address] Basic metabolic 1998 panelon 08-14-2024 Anion gap [Moles/Vol] 10 mmol/L 3 - 13 mmol/L [facility] Calcium [Mass/Vol] 6.8 mg/dL Low 8.4 - 10. 4 mg/dL [facility] [employer] Chloride [Moles/Vol] 96 mmol/L Low 98 - 10 7 mmol/L [facility] CO2 [Moles/Vol] 25 mmol/L 22 - 30 mmol/L [facility] Creatinine [Mass/Vol] 1.91 mg/dL High 0.52 - 1.04 mg/dL [facility] GFR/1.73 sq M.predicted (S/P/Bld) [Vol rate/Area] 29 mL/min Low - PINF [facility] Glucose [Mass/Vol] 361 mg/dL High 70 - 100 mg/dL [facility] Interpretation and review of laboratory results Abnormal [facility] Potassium [Moles/Vol] 3.5 mmol/L 3.5 - 5.1 mmol/L [facility] Sodium [Moles/Vol] 130 mmol/L Low 135 - 145 mmol/L [facility] Urea nitrogen [Mass/Vol] 18 mg/dL High 7 - 17 mg/dL [facility] CBC W Auto Differential pane l (Bld)Ordered By: Wei Adamson on 08-14-2024 Basophils (Bld) [#/Vol] 0 10*3/uL 0.0 - 0.2 10*3/uL [facility] Basophils/100 WBC (Bld) 0.2 % 0.0 - 2.0 % [facility] Eosinophils (Bld) [#/Vol] 0 10*3/uL 0.0 - 0.5 10*3/uL [facility] Eosinophils/100 WBC (Bld) 0.2 % 0.0 - 6.0 % [facility] Erythrocyte distribution width (RBC) [Ratio] 16.4 % High 11.5 - 15.0 % [facility] Hematocrit (Bld) [Volume fraction] 28.7 % Low 35.0 - 47.0 % [facility] Hemoglobin (Bld) [Mass/Vol] 9.2 g/dL Low 11.7 - 16.0 g/dL [facility] Immature granulocytes (Bld) [#/Vol] 0 10*3/uL NINF - 0.1 10*3/uL [facility] Immature granulocytes/100 WBC (Bld) 0.6 % 0.0 - 2.0 % [facility] Interpretation and review of laboratory results Abnormal [facility] IPF [address] [facility] [employer] Lymphocytes (Bld) [#/Vol] 0.7 10*3/uL Low 1.0 - 4.3 10*3/uL [facility] Lymphocytes/100 WBC (Bld) 13.6 % Low 15.0 - 45.0 % [facility] MCH (RBC) [Entitic mass] 29.2 pg 26.0 - 34.[address] [facility] MCHC (RBC) [Mass/Vol] 32.1 % 30.5 - 36.0 % [facility] MCV (RBC) [Entitic vol] 91.1 fL 77.0 - 99.[address] [facility] Monocytes (Bld) [#/Vol] 0.4 10*3/uL 0.0 - 0.9 10*3/uL [facility] Monocytes/100 WBC (Bld) 8 % 5.0 - 13.0 % [facility] Neutrophils (Bld) [#/Vol] 4 10*3/uL 1.8 - 7.5 10*3/uL [facility] Neutrophils/100 WBC (Bld) 77.4 % 38.0 - 82.0 % [facility] Nucleated RBC/100 WBC (Bld) [Ratio] 0 % [facility] Platelet mean volume (Bld) [Entitic vol] 10.9 fL 9.0 - 12.[address] [facility] Platelets (Bld) [#/Vol] 79 10*3/uL Low 140 - 440 10*3/uL [facility] RBC (Bld) [#/Vol] 3.15 10*6/uL Low 3.80 - 5.2 0 10*6/uL [facility] WBC (Bld) [#/Vol] 5.2 10*3/uL 3.6 - 10.7 10*3/uL [facility] CBC WITH AUTO DIFFERENTIALon 08-14-2024 Basophils (Bld) [#/Vol] 0.0 10*3/uL Normal 0.0-0.2 [facility] Comment on above: Performed By: #### L [id number] ####Manufacturing Helper: MARY SOTELO ([phone])[facility] ([address] Basophils/100 WBC (Bld) 0.2 % Normal 0.0-2.0 [facility] Comment on above: Performed By: #### L [id number] ####Manufacturing Helper: MARY SOTELO ([phone])[facility])[address] [place] [address] Eosinophils (Bld) [#/Vol] 0.0 10*3/uL Normal 0.0-0.5 [facility] Comment on above: Performed By: #### L [id number] ####Manufacturing Helper: MARY SOTELO ([phone])[facility])[address] [place] [address] Eosinophils/100 WBC (Bld) 0.2 % Normal 0.0-6.0 [facility] Comment on above: Performed By: #### L [id number] ####Manufacturing Helper: MARY SOTELO ([phone])[facility])[address] [place] [address] Erythrocyte distribution width (RBC) [Ratio] 16.4 % High 11.5-15.0 [facility] Comment on above: Performed By: #### L [id number] ####Manufacturing Helper: MARY OSTELO ([phone])[facility])[address] [place] [address] Hematocrit (Bld) [Volume fraction] 28.7 % Low 35.0-47.0 [facility] Comment on above: Performed By: #### L [id number] ####Manufacturing Helper: MARY SOTELO ([phone])[facility])[address] [place] [address] Hemoglobin (Bld) [Mass/Vol] 9.2 g/dL Low 11.7-16.0 [facility] Comment on above: Performed By: #### L [id number] ####Manufacturing Helper: MARY SOTELO ([phone])[facility])[address] [place] [address] IMMATURE GRANS % 0.6 % Normal 0.0-2.0 [facility] Comment on above: Performed By: #### L [id number] ####Manufacturing Helper: MARY SOTELO ([phone])[facility])[address] [place] [address] IMMATURE GRANS ABSOLUTE 0.0 10*3/uL Normal <0.1 [facility] Comment on above: Performed By: #### L [id number] ####Manufacturing Helper: MARY SOTELO ([phone])[facility])[address] [place] [address] IPF [address] [facility] Comment on above: Performed By: #### L [id number] ####Manufacturing Helper: MARY SOTELO ([phone])[facility])[address] [place] [address] Lymphocytes (Bld) [#/Vol] 0.7 10*3/uL Low 1.0-4.[address] [facility] Comment on above: Performed By: #### L [id number] ####Manufacturing Helper: MARY SOTELO ([phone])[facility])[address] [place] [address] Lymphocytes/100 WBC (Bld) 13.6 % Low 15.0-45.0 [facility] Comment on above: Performed By: #### L [id number] ####Manufacturing Helper: MARY SOTELO ([phone])[facility])[address] [place] [address] MCH (RBC) [Entitic mass] 29.2 pg Normal 26.0-34.0 [facility] Comment on above: Performed By: #### L [id number] ####Manufacturing Helper: MARY SOTELO ([phone])[facility])[address] [place] [address] MCHC 32.1 % Normal 30.5-36.[address] [facility] Comment on above: Performed By: #### L [id number] ####Manufacturing Helper: MARY SOTELO ([phone])[facility])[address] [place] [address] [place] MCV (RBC) [Entitic vol] 91.1 fL Normal 77.0-99.0 [facility] Comment on above: Performed By: #### L [id number] ####Manufacturing Helper: MARY SOTELO ([phone])[facility])[address] [place] [address] Monocytes (Bld) [#/Vol] 0.4 10*3/uL Normal 0.0-0.9 [facility] Comment on above: Performed By: #### L [id number] ####Manufacturing Helper: MARY SOTELO ([phone])[facility] ([facility])[address] [place] [address] Monocytes/100 WBC (Bld) 8.0 % Normal 5.0-13.0 [facility] Comment on above: Performed By: #### L [id number] ####Manufacturing Helper: MARY SOTELO ([phone])[facility])[address] [place] [address] NEUTROPHILS ABSOLUTE 4.0 10*3/uL Normal 1.8-7.5 [facility] Comment on above: Performed By: #### L [id number] ####Manufacturing Helper: MARY SOTELO ([phone])[facility])[address] [place] [address] Neutrophils/100 WBC (Bld) 77.4 % Normal 38.0-82.0 [facility] Comment on above: Performed By: #### L [id number] ####Manufacturing Helper: MARY SOTELO ([phone])[facility] ([facility])[address] [place] [address] NRBC 0.0 /100 WBCs Normal 0.0-2.0 [facility] Comment on above: Performed By: #### L [id number] ####Manufacturing Helper: MARY SOTELO ([phone])[facility])[address] [place] [address] Platelet mean volume (Bld) [Entitic vol] 10.9 fL Normal 9.0-12.7 [facility] Comment on above: Performed By: #### L [id number] ####Manufacturing Helper: MARY SOTELO ([phone])[facility] ([facility])[address] [place] [address] Platelets (Bld) [#/Vol] 79 10*3/uL Low 140-440 [facility] Comment on above: Performed By: #### L [id number] ####Manufacturing Helper: MARY SOTELO ([phone])[facility] ([facility])[address] [place] [address] RBC (Bld) [#/Vol] 3.15 10*6/uL Low 3.80-5.20 [facility] Comment on above: Performed By: #### L [id number] ####Manufacturing Helper: MARY SOTELO ([phone])[facility] ([facility])[address] [place] [address] WBC (Bld) [#/Vol] 5.2 10*3/uL Normal 3.6-10.7 [facility] Comment on above: Performed By: #### L [id number] ####Manufacturing Helper: MARY SOTELO ([phone])[facility] ([facility])[address] [place] [address] IDNon 08-14-2024 IDN Normal [facility] - Chemistry and C hemistry - challengeon 08-14-2024 Glucose [Mass/Vol] 248 mg/dL High 70 - 100 mg/dL [facility] Glucose [Mass/Vol] 233 mg/dL High 70 - 100 mg/dL [facility] Glucose [Mass/Vol] 294 mg/dL High 70 - 100 mg/dL [facility] Glucose [Mass/Vol] 356 mg/dL High 70 - 100 mg/dL [facility] Magnesium [Mass/Vol] 2.1 mg/dL 1.6 - 2 .3 mg/dL [facility] MAGNESIUMon 08-14-2024 Magnesium [Mass/Vol] 2.1 mg/dL Normal 1.6-2.3 [facility] Comment on above: Performed By: #### L AB113, [id number], LAB15 ####Manufacturing Helper: MARY [phone])[facility] ([facility])[address] [place] [address] No Panel Informationon 08-14 Interpretation and review of laboratory results Abnormal [facility] Interpretation and review of laboratory results Abnormal [facility] Interpretation and review of laboratory results Abnormal [facility] Interpretation and review of laboratory results Abnormal [facility] Interpretation and review of laboratory results Normal [facility] PHOSPHORUSon 08-14-2024 Phosphate [Mass/Vol] 2.9 mg/dL Normal 2.5-4.5 [facility] Comment on above: Performed By: #### L AB113, [id number], LAB15 ####Manufacturing Helper: MARY SOTELO ([phone])[facility] ([facility])[address] [place] [address] Phosphate [Moles/Vol]on 08-03 Phosphate [Mass/Vol] 2.9 mg/dL 2.5 - 4 .5 mg/dL [facility] Progress Noteon 08-14-2024 Progress Note Normal [facility] Progress Note Normal [facility] Progress Note Normal [facility] Progress Note Normal [facility] BASIC METABOLIC PANELon 08-03 Anion gap [Moles/Vol] 11 mmol/L Normal 3-13 [facility] Comment on above: Performed By: #### L AB15, [id number], [id number] ####Manufacturing Helper: MARY SOTELO ([phone])[facility] ([facility])[address] [place] [address] Calcium [Mass/Vol] 7.1 mg/dL Low 8.4-10.4 [facility] Comment on above: Performed By: #### L AB15, [id number], [id number] ####Manufacturing Helper: MARY SOTELO ([phone])[facility] ([facility])[address] [place] [address] [place] Chloride [Moles/Vol] 103 mmol/L Normal 98-107 [facility] Comment on above: Performed By: #### L AB15, [id number], [id number] ####Manufacturing Helper: MARY SOTELO ([phone])[facility] ([facility])[address] [place] [address] CO2 [Moles/Vol] 19 mmol/L Low 22-30 [facility] Comment on above: Performed By: #### L AB15, [id number], [id number] ####Manufacturing Helper: MARY SOTELO ([phone])[facility])[address] [place] [address] Creatinine [Mass/Vol] 2.43 mg/dL High 0.52-1.04 [facility] Comment on above: Performed By: #### L AB15, [id number], [id number] ####Manufacturing Helper: MARY SOTELO ([phone])[facility])[address] [place] [address] GLOMERULAR FILTRATION RATE ML/MIN/1.73 SQ M.PREDICTED 21.7 mL/min/1.73m*2 Low >60.0 [facility] Comment on above: Result Comment: Calc ulation based on the Chronic Kidney Disease Epidemiology Collaboration (CKD-EPI) equation refit without adjustment for race Performed By: #### Dora AB15, [id number], [id number] ####Manufacturing Helper: MARY SOTELO ([phone])[facility] ([facility])[address] [place] [address] Glucose [Mass/Vol] 211 mg/dL High 70-100 [facility] Comment on above: Performed By: #### L AB15, ETM520, [id number] ####Manufacturing Helper: MARY SOTELO ([phone])[facility] ([facility])[address] [place] [address] Potassium [Moles/Vol] 3.7 mmol/L Normal 3.5-5.1 [facility] Comment on above: Performed By: #### L AB15, [id number], [id number] ####Manufacturing Helper: MARY SOTELO ([phone])[facility])[address] [place] [address] [place] Sodium [Moles/Vol] 134 mmol/L Low 135-145 [facility] Comment on above: Performed By: #### L AB15, [id number], [id number] ####Manufacturing Helper: MARY SOTELO ([phone])[facility])[address] [place] [address] Urea nitrogen [Mass/Vol] 18 mg/dL High 7-17 [facility] Comment on above: Performed By: #### L AB15, [id number], [id number] ####Manufacturing Helper: MARY SOTELO ([phone])[facility])[address] [place] [address] BETA HYDROXYBUTYRATEon 08-13 BETA HYDROXYBUTYRATE 33.80 mg/dL High 0.20-2.81 [facility] Comment on above: Performed By: #### L AB89, [id number], [id number], [id number] ####Manufacturing Helper: MARY SOTELO ([phone])[facility])[address] [place] [address] BLOOD GAS ARTERIALon 024 Base excess Calc (Bld) [Moles/Vol] -3.2000 mmol/L Low -3.0-3.0 [facility] Comment on above: Performed By: #### L AB76 ####Manufacturing Helper: MARY SOTELO ([phone])[facility])[address] [place] [address] CO2 [Moles/Vol] 24.8 mmol/L Normal 23.0-27.0 [facility] Comment on above: Performed By: #### L [id number] ####Manufacturing Helper: MARY SOTELO ([phone])[facility])[address] [place] [address] HCO3 (Bld) [Moles/Vol] 23.3 mmol/L Normal 21.0-25.0 [facility] Comment on above: Performed By: #### L AB76 ####Manufacturing Helper: MARY SOTELO ([phone])[facility])[address] [place] [address] Hemoglobin (Bld) [Mass/Vol] 8.3 g/dL Normal Screen only [facility] Comment on above: Performed By: #### L AB76 ####Manufacturing Helper: MARY SOTELO ([phone])[facility] ([facility])[address] [place] [address] OXYGEN SATURATION (%) IN ARTERIAL BLOOD 95.8 % Normal 95.0-100.0 [facility] Comment on above: Performed By: #### L AB76 ####Manufacturing Helper: MARY SOTELO ([phone])[facility] ([facility])[address] [place] [address] PCO2 ARTERIAL 49.4 mm Hg High >35.0-<45.0 [facility] Comment on above: Performed By: #### L [id number] ####Manufacturing Helper: MARY SOTELO ([phone])[facility] ([facility])[address] [place] [address] PH ARTERIAL 7.291 Low 7.350-7.450 [facility] Comment on above: Performed By: #### L AB76 ####Manufacturing Helper: MARY SOTELO ([phone])[facility] ([facility])[address] [place] [address] PO2 ARTERIAL 84.7 mm Hg Normal 80.0-100.0 [facility] Comment on above: Performed By: #### L AB76 ####Manufacturing Helper: MARY SOTELO ([phone])[facility])[address] [place] [address] SOURCE OF OXYGEN 30% Oxygen Normal [facility] Comment on above: Performed By: #### L [id number] ####Manufacturing Helper: MARY SOTELO ([phone])[facility] ([facility])[address] [place] [address] CARECOORDon 08-13-2024 CARECOORD Normal [facility] CARECOORD Normal [facility] CBC W Auto Differential pane l (Bld)Ordered By: Elin Cline on 08-13-2024 Basophils (Bld) [#/Vol] 0 10*3/uL 0.0 - 0.2 10*3/uL [facility] Basophils/100 WBC (Bld) 0 % 0.0 - 2.0 % [facility] Eosinophils (Bld) [#/Vol] 0 10*3/uL 0.0 - 0.5 10*3/uL [facility] Eosinophils/100 WBC (Bld) 0 % 0.0 - 6.0 % [facility] [employer] Erythrocyte distribution width (RBC) [Ratio] 15.9 % High 11.5 - 15.0 % [facility] Hematocrit (Bld) [Volume fraction] 28.2 % Low 35.0 - 47.0 % [facility] Hemoglobin (Bld) [Mass/Vol] 9.2 g/dL Low 11.7 - 16.0 g/dL [facility] [employer] Immature granulocytes (Bld) [#/Vol] 0 10*3/uL NINF - 0.1 10*3/uL [facility] Immature granulocytes/100 WBC (Bld) 0.6 % 0.0 - 2.0 % [facility] Interpretation and review of laboratory results Abnormal [facility] IPF [address] [facility] Lymphocytes (Bld) [#/Vol] 0.3 10*3/uL Low 1.0 - 4.3 10*3/uL [facility] Lymphocytes/100 WBC (Bld) 9 % Low 15.0 - 45.0 % [facility] MCH (RBC) [Entitic mass] 29.4 pg 26.0 - 34.0 pg [facility] MCHC (RBC) [Mass/Vol] 32.6 % 30.5 - 36.0 % [facility] MCV (RBC) [Entitic vol] 90.1 fL 77.0 - 99.0 fL [facility] Monocytes (Bld) [#/Vol] 0.1 10*3/uL 0.0 - 0.9 10*3/uL [facility] Monocytes/100 WBC (Bld) 3.8 % Low 5.0 - 13.0 % [facility] [employer] Neutrophils (Bld) [#/Vol] 2.7 10*3/uL 1.8 - 7.5 10*3/uL [facility] Neutrophils/100 WBC (Bld) 86.6 % High 38.0 - 82.0 % [facility] [employer] Nucleated RBC/100 WBC (Bld) [Ratio] 0 % [facility] Platelet mean volume (Bld) [Entitic vol] 10.5 fL 9.0 - 12.7 fL [facility] Platelets (Bld) [#/Vol] 78 10*3/uL Low 140 - 440 10*3/uL [facility] RBC (Bld) [#/Vol] 3.13 10*6/uL Low 3.80 - 5.2 0 10*6/uL [facility] WBC (Bld) [#/Vol] 3.1 10*3/uL Low 3.6 - 10.7 10*3/uL [facility] CBC WITH AUTO DIFFERENTIALon 08-13-2024 Basophils (Bld) [#/Vol] 0.0 10*3/uL Normal 0.0-0.2 [facility] Comment on above: Performed By: #### L [id number] ####Manufacturing Helper: MARY SOTELO ([phone])[facility])[address] [place] [address] Basophils/100 WBC (Bld) 0.0 % Normal 0.0-2.0 [facility] Comment on above: Performed By: #### L [id number] ####Manufacturing Helper: MARY SOTELO ([phone])[address] Eosinophils (Bld) [#/Vol] 0.0 10*3/uL Normal 0.0-0.5 [facility] Comment on above: Performed By: #### L [id number] ####Manufacturing Helper: MARY SOTELO ([phone])[facility])[address] [place] [address] Eosinophils/100 WBC (Bld) 0.0 % Normal 0.0-6.0 [facility] Comment on above: Performed By: #### L [id number] ####Manufacturing Helper: MARY SOTELO ([phone])[facility])[address] [place] [address] Erythrocyte distribution width (RBC) [Ratio] 15.9 % High 11.5-15.0 [facility] Comment on above: Performed By: #### L [id number] ####Manufacturing Helper: MARY SOTELO ([phone])[facility])[address] [place] [address] Hematocrit (Bld) [Volume fraction] 28.2 % Low 35.0-47.0 [facility] Comment on above: Performed By: #### L [id number] ####Manufacturing Helper: MARY SOTELO ([phone])[facility])[address] [place] [address] Hemoglobin (Bld) [Mass/Vol] 9.2 g/dL Low 11.7-16.0 [facility] Comment on above: Performed By: #### L [id number] ####Manufacturing Helper: MARY SOTELO ([phone])[facility])[address] [place] [address] IMMATURE GRANS % 0.6 % Normal 0.0-2.0 [facility] Comment on above: Performed By: #### L [id number] ####Manufacturing Helper: MARY SOTELO ([phone])[facility])[address] [place] [address] IMMATURE GRANS ABSOLUTE 0.0 10*3/uL Normal <0.1 [facility] Comment on above: Performed By: #### L [id number] ####Manufacturing Helper: MARY SOTELO ([phone])[facility])[address] [place] [address] IPF 3 Normal [facility] Comment on above: Performed By: #### L [id number] ####Manufacturing Helper: MARY SOTELO ([phone])[facility])[address] [place] [address] Lymphocytes (Bld) [#/Vol] 0.3 10*3/uL Low 1.0-4.3 [facility] Comment on above: Performed By: #### L [id number] ####Manufacturing Helper: MARY SOTELO ([phone])[facility])[address] [place] [address] [place] Lymphocytes/100 WBC (Bld) 9.0 % Low 15.0-45.0 [facility] Comment on above: Performed By: #### L [id number] ####Manufacturing Helper: MARY SOTELO ([phone])[facility] ([facility])[address] [place] [address] MCH (RBC) [Entitic mass] 29.4 pg Normal 26.0-34.0 [facility] Comment on above: Performed By: #### L [id number] ####Manufacturing Helper: MARY SOTELO ([phone])[facility] ([facility])[address] [place] [address] MCHC 32.6 % Normal 30.5-36.0 [facility] Comment on above: Performed By: #### L [id number] ####Manufacturing Helper: MARY SOTELO ([phone])[facility])[address] [place] [address] MCV (RBC) [Entitic vol] 90.1 fL Normal 77.0-99.0 [facility] Comment on above: Performed By: #### L [id number] ####Manufacturing Helper: MARY SOTELO ([phone])[facility] ([facility])[address] [place] [address] Monocytes (Bld) [#/Vol] 0.1 10*3/uL Normal 0.0-0.9 [facility] Comment on above: Performed By: #### L [id number] ####Manufacturing Helper: MARY SOTELO ([phone])[facility] ([facility])[address] [place] [address] Monocytes/100 WBC (Bld) 3.8 % Low 5.0-13.0 [facility] Comment on above: Performed By: #### L [id number] ####Manufacturing Helper: MARY SOTELO ([phone])[facility])[address] [place] [address] NEUTROPHILS ABSOLUTE 2.7 10*3/uL Normal 1.8-7.5 [facility] Comment on above: Performed By: #### L [id number] ####Manufacturing Helper: MARY SOTELO ([phone])[facility] ([facility])[address] [place] [address] Neutrophils/100 WBC (Bld) 86.6 % High 38.0-82.0 [facility] Comment on above: Performed By: #### L [id number] ####Manufacturing Helper: MARY SOTELO ([phone])[facility] ([facility])[address] [place] [address] NRBC 0.0 /100 WBCs Normal 0.0-2.0 [facility] Comment on above: Performed By: #### L [id number] ####Manufacturing Helper: MARY SOTELO ([phone])[facility])[address] [place] [address] Platelet mean volume (Bld) [Entitic vol] 10.5 fL Normal 9.0-12.7 [facility] Comment on above: Performed By: #### L [id number] ####Manufacturing Helper: MARY SOTELO ([phone])[facility] ([facility])[address] [place] [address] Platelets (Bld) [#/Vol] 78 10*3/uL Low 140-440 [facility] Comment on above: Performed By: #### L [id number] ####Manufacturing Helper: MARY SOTELO ([phone])[facility] ([facility])[address] [place] [address] [place] RBC (Bld) [#/Vol] 3.13 10*6/uL Low 3.80-5.20 [facility] Comment on above: Performed By: #### L [id number] ####Manufacturing Helper: MARY SOTELO ([phone])[facility])[address] [place] [address] WBC (Bld) [#/Vol] 3.1 10*3/uL Low 3.6-10.7 [facility] Comment on above: Performed By: #### L [id number] ####Manufacturing Helper: MARY SOTELO ([phone])[facility])[address] [place] [address] Erythrocyte distribution width (RBC) [Ratio] 16.1 % High 11.5-15.0 [facility] Comment on above: Performed By: #### L [id number], [id number] ####Manufacturing Helper: MARY SOTELO ([phone])[facility])[address] [place] [address] Hematocrit (Bld) [Volume fraction] 21.0 % Low 35.0-47.0 [facility] Comment on above: Performed By: #### L [id number], [id number] ####Manufacturing Helper: MARY SOTELO ([phone])[address] Hemoglobin (Bld) [Mass/Vol] 6.7 g/dL Critically low 11.7-16.0 [facility] Comment on above: Performed By: #### L [id number], [id number] ####Manufacturing Helper: MARY SOTELO ([phone])[address] IPF 3 Normal [facility] Comment on above: Performed By: #### L [id number], [id number] ####Manufacturing Helper: MARY SOTELO ([phone])[address] MCH (RBC) [Entitic mass] 29.8 pg Normal 26.0-34.0 [facility] Comment on above: Performed By: #### L [id number], [id number] ####Manufacturing Helper: MARY SOTELO ([phone])[address] MCHC 31.9 % Normal 30.5-36.0 [facility] Comment on above: Performed By: #### L [id number], [id number] ####Manufacturing Helper: MARY SOTELO ([phone])[facility] ([facility])[address] [place] [address] MCV (RBC) [Entitic vol] 93.3 fL Normal 77.0-99.0 [facility] Comment on above: Performed By: #### L [id number], [id number] ####Manufacturing Helper: MARY SOTELO ([phone])[facility])[address] [place] [address] Platelet mean volume (Bld) [Entitic vol] 11.1 fL Normal 9.0-12.7 [facility] Comment on above: Performed By: #### L [id number], [id number] ####Manufacturing Helper: MARY SOTELO ([phone])[facility])[address] [place] [address] Platelets (Bld) [#/Vol] 65 10*3/uL Low 140-440 [facility] Comment on above: Performed By: #### L [id number], [id number] ####Manufacturing Helper: MARY SOTELO ([phone])[facility])[address] [place] [address] RBC (Bld) [#/Vol] 2.25 10*6/uL Low 3.80-5.20 [facility] Comment on above: Performed By: #### L [id number], [id number] ####Manufacturing Helper: MARY SOTELO ([phone])[facility])[address] [place] [address] WBC (Bld) [#/Vol] 2.5 10*3/uL Low 3.6-10.7 [facility] Comment on above: Performed By: #### L [id number], [id number] ####Manufacturing Helper: MARY SOTELO ([phone])[facility])[address] [place] [address] COMPLETE URINALYSISon 2023 BACTERIA (#/HPF) IN URINE Few Abnormal Negative [facility] Comment on above: Performed By: #### L [id number] ####Manufacturing Helper: MARY [phone])[facility] ([facility])[address] [place] [address] BILIRUBIN, TOTAL PRESENCE IN URINE Negative Normal Negative [facility] Comment on above: Performed By: #### L [id number] ####Manufacturing Helper: MARY SOTELO ([phone])[facility] ([facility])[address] [place] [address] Clarity (U) Extra Turbid Abnormal Clear [facility] Comment on above: Performed By: #### L [id number] ####Manufacturing Helper: MARY SOTELO ([phone])[facility] ([facility])[address] [place] [address] Color (U) Yellow Normal Lt. Yellow [facility] Comment on above: Performed By: #### L [id number] ####Manufacturing Helper: MARY SOTELO ([phone])[facility] [place] [address] GLUCOSE (MG/DL) IN URINE Normal Normal Normal (<70) [facility] Comment on above: Performed By: #### L [id number] ####Manufacturing Helper: MARY SOTELO ([phone])[facility] ([facility])[address] [place] [address] HEMOGLOBIN PRESENCE IN URINE 0.2 mg/dL Abnormal Negative [facility] Comment on above: Performed By: #### L [id number] ####Manufacturing Helper: MARY SOTELO ([phone])[facility] [place] [address] Ketones Ql (U) Trace Abnormal Negative [facility] Comment on above: Performed By: #### L [id number] ####Manufacturing Helper: MARY SOTELO ([phone])[facility] ([facility])[address] [place] [address] LEUKOCYTE ESTERASE PRESENCE IN URINE BY TEST STRIP 500 Bere/uL Abnormal Negative [facility] Comment on above: Performed By: #### L [id number] ####Manufacturing Helper: MARY SOTELO ([phone])[facility] ([facility])[address] [place] [address] [place] MUCUS (#/LPF) IN URINE SEDIMENT Few Normal Negative [facility] Comment on above: Performed By: #### L [id number] ####Manufacturing Helper: MARY SOTELO ([phone])[facility])[address] [place] [address] NITRITE PRESENCE IN URINE Negative Normal Negative [facility] Comment on above: Performed By: #### L [id number] ####Manufacturing Helper: MARY SOTELO ([phone])[facility])[address] [place] [address] NON-SQUAMOUS EPITHELIAL (#/HPF) IN URINE 0-2 Abnormal Negative [facility] Comment on above: Performed By: #### L [id number] ####Manufacturing Helper: MARY SOTELO ([phone])[facility])[address] [place] [address] pH (U) 5.5 [pH] Normal 5.0-8.0 [facility] Comment on above: Performed By: #### L [id number] ####Manufacturing Helper: MARY SOTELO ([phone])[facility])[address] [place] [address] Protein (U) [Mass/Vol] 100 mg/dL Abnormal Negative [facility] Comment on above: Performed By: #### L [id number] ####Manufacturing Helper: MARY SOTELO ([phone])[facility])[address] [place] [address] [place] RBC (#/HPF) IN URINE SEDIMENT 11-25 Abnormal 0-2 [facility] Comment on above: Performed By: #### L [id number] ####Manufacturing Helper: MARY SOTELO ([phone])[facility])[address] [place] [address] Specific gravity (U) [Rel density] 1.021 Normal 1.005-1.030 [facility] Comment on above: Performed By: #### L [id number] ####Manufacturing Helper: MARY SOTELO ([phone])[facility] ([facility])[address] [place] [address] [place] SQUAMOUS EPITHELIAL CELLS (#/HPF) IN URINE SEDIMENT 0-2 Normal 3-5 [facility] Comment on above: Performed By: #### L [id number] ####Manufacturing Helper: MARY SOTELO ([phone])[facility] [place] [address] UROBILINOGEN (MG/DL) IN URINE Normal Normal Normal (0-1) [facility] Comment on above: Performed By: #### L [id number] ####Manufacturing Helper: MARY SOTELO ([phone])[facility] [place] [address] WBC (LEUKOCYTE) (#/HPF) IN URINE SEDIMENT >100 Abnormal 0-5 [facility] Comment on above: Performed By: #### L [id number] ####Manufacturing Helper: MARY SOTELO ([phone])[facility] [place] [address] WBC (LEUKOCYTE) CLUMPS (#/HPF) IN URINE SEDIMENT Occasional Abnormal Negative [facility] Comment on above: Performed By: #### L [id number] ####Manufacturing Helper: MARY SOTELO ([phone])[facility] [place] [address] YEAST (#/HPF) IN URINE Many Abnormal Negative [facility] Comment on above: Performed By: #### L [id number] ####Manufacturing Helper: MARY OSTELO ([phone])[facility] [place] [address] [place] Consulton 08-13-2024 Consult Normal [facility] Consult Normal [facility] Consult Normal [facility] HAPTOGLOBINon 08-13-2024 HAPTOGLOBIN 44.2 mg/dL Normal 30.0-200.0 [facility] Comment on above: Performed By: #### L AB89, [id number], [id number], [id number] ####Manufacturing Helper: MARY SOTELO ([phone])[facility])[address] [place] [address] HEMOGLOBIN AND HEMATOCRIT, B Sherice 08-13-2024 Hematocrit (Bld) [Volume fraction] 28.3 % Low 35.0-47.0 [facility] Comment on above: Order Comment: Recom mend 1 hour post transfusion Performed By: #### L [id number] ####Manufacturing Helper: MARY SOTELO ([phone])[facility])[address] [place] [address] Hemoglobin (Bld) [Mass/Vol] 9.2 g/dL Low 11.7-16.0 [facility] Comment on above: Order Comment: Recom mend 1 hour post transfusion Performed By: #### L [id number] ####Manufacturing Helper: MARY SOTELO ([phone])[address] Hematocrit (Bld) [Volume fraction] 27.5 % Low 35.0-47.0 [facility] Comment on above: Order Comment: Recom mend 1 hour post transfusion Performed By: #### L [id number] ####Manufacturing Helper: MARY SOTELO ([phone])[address] Hemoglobin (Bld) [Mass/Vol] 8.7 g/dL Low 11.7-16.0 [facility] Comment on above: Order Comment: Recom mend 1 hour post transfusion Performed By: #### L [id number] ####Manufacturing Helper: MARY SOTELO ([phone])[address] HEPARIN-INDUCED PLATELET AB, REFL JONO UNFRAC HEP (BKR [facility])on 08-13-2024 [facility] HEPARIN INDUCED PLATELET ANTIBODY Negative Normal Negative [facility] Comment on above: Result Comment: This [...] Thromb Haemost 2008;6:1304-12). Performed By: #### L [id number] ####[facility] ([facility]DB[facility]AKER)[id number] [place], [facility] PATIENT O.D. 0.052 Normal [facility] Comment on above: Result Comment: ____ ! O.D.units ! Result !! ! !! <=0.300 ! Negative !! >0.300 to <=0.500 ! Weak Positive !! >0.500 ! Positive !! ! !For additional information, please refer [email or web address](This link is being provided for informational/educational purposes only.)Test Performed by Hui Mota,[facility],[address] [place] [id number] Wells M.D., Ph.D., Director of [phone], [place] [id number] Performed By: #### L [id number] ####[facility] ([facility]DB[facility]AK[facility])[id number] [place], [facility] Hemoglobin (Bld) [Mass/Vol]O rdered By: Laurel Alva on 08-13-2024 Hematocrit (Bld) [Volume fraction] 28.3 % Low 35.0 - 47.0 % [facility] Interpretation and review of laboratory results Abnormal [facility] LACTATE DEHYDROGENASEon 08-03 LDH [Catalytic activity/Vol] 184 U/L Normal 120-246 [facility] Comment on above: Performed By: #### L AB89, [id number], [id number], [id number] ####Manufacturing Helper: MARY SOTELO ([phone])[facility] ([facility])[address] [place] [address] LACTIC ACID WITH REFLEXon Lactate [Moles/Vol] mmol/L Low 0.7-2.0 [facility] Comment on above: Performed By: #### L [id number] ####Manufacturing Helper: MARY SOTELO ([phone])[facility] ([facility])[address] [place] [address] Laboratory - Chemistry and C hemistry - challengeon 08-13-2024 Glucose [Mass/Vol] 310 mg/dL High 70 - 100 mg/dL [facility] Glucose [Mass/Vol] 259 mg/dL High 70 - 100 mg/dL [facility] Glucose [Mass/Vol] 176 mg/dL High 70 - 100 mg/dL [facility] Troponin I.cardiac [Mass/Vol] 0.074 ng/mL High NINF - 0.034 ng/mL [facility] Glucose [Mass/Vol] 307 mg/dL High 70 - 100 mg/dL [facility] Troponin I.cardiac [Mass/Vol] 0.07 ng/mL High NINF - 0.034 ng/mL [facility] Troponin I.cardiac [Mass/Vol] 0.065 ng/mL High NINF - 0.034 ng/mL [facility] Glucose [Mass/Vol] 259 mg/dL High 70 - 100 mg/dL [facility] Troponin I.cardiac [Mass/Vol] 0.073 ng/mL High NINF - 0.034 ng/mL [facility] Lactate [Moles/Vol] mmol/L Low 0.7 - 2. 0 mmol/L [facility] Base excess Calc (Bld) [Moles/Vol] -3.2000 mmol/L Low -3.0 - 3.0 mmol/L [facility] CO2 (Bld) [Partial pressure] 49.4 mm[Hg] High - PINF [facility] CO2 [Moles/Vol] 24.8 mmol/L 23.0 - 27.0 mmol/L [facility] HCO3 (Bld) [Moles/Vol] 23.3 mmol/L 21.0 - 25.0 mmol/L [facility] Oxygen (Bld) [Partial pressure] 84.7 mm[Hg] [facility] pH (Bld) 7.291 [pH] Low 7.350 - 7.450 [facility] Beta hydroxybutyrate [Mass/Vol] 33.8 mg/dL High 0.20 - 2.81 mg/dL [facility] - Hematology and Cell countson 08-13-2024 Haptoglobin [Mass/Vol] 44.2 mg/dL 30.0 - 200.0 mg/dL [facility] Hemoglobin (Bld) [Mass/Vol] 8.3 g/dL Screen only [facility] Anisocytosis Ql (Bld) Slight Abnormal (none) [facility] Band form neutrophils (Bld) [#/Vol] 0.1 10*3/uL High NINF - 0.0 10*3/uL [facility] Band form neutrophils/100 WBC (Bld) 2 % High NINF - 0 % [facility] Basophilic stippling LM Ql (Bld) Slight Abnormal (none) [facility] Lymphocytes (Bld) [#/Vol] 0.2 10*3/uL Low 1.0 - 4.3 10*3/uL [facility] Lymphocytes/100 WBC (Bld) 7 % Low 15 - 45 % [facility] Microcytes Ql (Bld) Slight Abnormal (none) [facility] Monocytes (Bld) [#/Vol] 0 10*3/uL 0.0 - 0.9 10*3/uL [facility] Monocytes/100 WBC (Bld) 0 % Low 5 - 13 % [facility] Neutrophils (Bld) [#/Vol] 2.3 10*3/uL 1.8 - 7.5 10*3/uL [facility] Polychromasia LM Ql (Bld) Slight Abnormal (none) [facility] RBC morphology finding Nom (Bld) abnormal [facility] Segmented neutrophils/100 WBC (Bld) 91 % High 38 - 82 % [facility] [facility] - Hematology and Cell countsOrdered By: Laurel Alva on 08-13-2024 Hemoglobin (Bld) [Mass/Vol] 9.2 g/dL Low 11.7 - 16.0 g/dL [facility] MAGNESIUMon 08-13-2024 Magnesium [Mass/Vol] 1.5 mg/dL Low 1.6-2.3 [facility] Comment on above: Performed By: #### L [id number], [id number], [id number] ####Manufacturing Helper: MARY SOTELO ([phone])[facility] [place] [address] [place] MANUAL DIFFERENTIAL (CELLAVI ESPINOZA)on 08-13-2024 ANISOCYTOSIS PRESENCE IN BLOOD BY LIGHT MICROSCOPY Slight Abnormal (none) [facility] Comment on above: Performed By: #### L [id number], [id number] ####Manufacturing Helper: MARY SOTELO ([phone])[facility] ([facility])[address] [place] [address] BAND NEUTROPHILS TOTAL PER COUNTED LEUKOCYTES BY MANUAL COUNT 2 Normal [facility] Comment on above: Performed By: #### L [id number], [id number] ####Manufacturing Helper: MARY SOTELO ([phone])[facility] ([facility])[address] [place] [address] [place] BANDS (10*3/UL) IN BLOOD-CELLAVISION 0.1 10*3/uL High <=0.0 [facility] Comment on above: Performed By: #### L [id number], [id number] ####Manufacturing Helper: MARY SOTELO ([phone])[facility] ([facility])[address] [place] [address] [place] BASOPHILIC STIPPLING PRESENCE IN BLOOD BY LIGHT MICROSCOPY Slight Abnormal (none) [facility] Comment on above: Performed By: #### L [id number], [id number] ####Manufacturing Helper: MARY SOTELO ([phone])[facility] ([facility])[address] [place] [address] [place] BASOPHILS TOTAL PER COUNTED LEUKOCYTES BY MANUAL COUNT Normal [facility] Comment on above: Performed By: #### L [id number], [id number] ####Manufacturing Helper: MARY SOTELO ([phone])[facility] ([facility])[address] [place] [address] [place] BLASTS TOTAL PER COUNTED LEUKOCYTES BY MANUAL COUNT Normal [facility] Comment on above: Performed By: #### L [id number], [id number] ####Manufacturing Helper: MARY SOTELO ([phone])[facility] ([facility])[address] [place] [address] EOSINOPHILS TOTAL PER COUNTED LEUKOCYTES BY MANUAL COUNT Normal [facility] Comment on above: Performed By: #### L [id number], [id number] ####Manufacturing Helper: MARY SOTELO ([phone])[facility] ([facility])[address] [place] [address] [place] LYMPHOCYTES (10*3/UL) IN BLOOD-CELLAVISION 0.2 10*3/uL Low 1.0-4.3 [facility] Comment on above: Performed By: #### L [id number], [id number] ####Manufacturing Helper: MAYR SOTELO ([phone])[facility] ([facility])[address] [place] [address] [place] LYMPHOCYTES TOTAL PER COUNTED LEUKOCYTES BY MANUAL COUNT 7 Normal [facility] Comment on above: Performed By: #### L [id number], [id number] ####Manufacturing Helper: MARY SOTELO ([phone])[facility] ([facility])[address] [place] [address] LYMPHOCYTES/100 LEUKOCYTES IN BLOOD-CELLAVISION 7 % Low 15-45 [facility] Comment on above: Performed By: #### L [id number], [id number] ####Manufacturing Helper: MARY SOTELO ([phone])[facility] ([facility])[address] [place] [address] [place] METAMYELOCYTES TOTAL PER COUNTED LEUKOCYTES BY MANUAL COUNT Normal [facility] Comment on above: Performed By: #### L [id number], [id number] ####Manufacturing Helper: MARY SOTELO ([phone])[facility] ([facility])[address] [place] [address] [place] MICROCYTES (PRESENCE) IN BLOOD BY LIGHT MICROSCOPY Slight Abnormal (none) [facility] Comment on above: Performed By: #### L [id number], [id number] ####Manufacturing Helper: MARY SOTELO ([phone])[facility] ([facility])[address] [place] [address] [place] MONOCYTES (10*3/UL) IN BLOOD-CELLAVISION 0.0 10*3/uL Normal 0.0-0.9 [facility] Comment on above: Performed By: #### L [id number], [id number] ####Manufacturing Helper: MARY SOTELO ([phone])[facility] ([facility])[address] [place] [address] [place] MONOCYTES TOTAL PER COUNTED LEUKOCYTES BY MANUAL COUNT 0 Normal [facility] Comment on above: Performed By: #### L [id number], [id number] ####Manufacturing Helper: MARY SOTELO ([phone])[facility] ([facility])[address] [place] [address] [place] MONOCYTES/100 LEUKOCYTES IN BLOOD-KACEY 0 % Low 5-13 [facility] Comment on above: Performed By: #### L [id number], [id number] ####Manufacturing Helper: MARY SOTELO ([phone])[facility] ([facility])[address] [place] [address] [place] MYELOCYTES COUNTED BY MANUAL COUNT Normal [facility] Comment on above: Performed By: #### L [id number], [id number] ####Manufacturing Helper: MARY SOTELO ([phone])[facility] ([facility])[address] [place] [address] [place] NEUTROPHILS BAND FORM/100 LEUKOCYTES IN BLOOD-CELLAVISI 2 % High <=0 [facility] Comment on above: Performed By: #### L [id number], [id number] ####Manufacturing Helper: MARY SOTELO ([phone])[facility] ([facility])[address] [place] [address] [place] NEUTROPHILS TOTAL PER COUNTED LEUKOCYTES BY MANUAL COUNT 90 Normal [facility] Comment on above: Performed By: #### L [id number], [id number] ####Manufacturing Helper: MARY SOTELO ([phone])[facility])[address] [place] [address] [place] POLYCHROMASIA IN BLOOD BY LIGHT MICROSCOPY Slight Abnormal (none) [facility] Comment on above: Performed By: #### L [id number], [id number] ####Manufacturing Helper: MARY SOTELO ([phone])[facility] [place] [address] [place] PROMYELOCYTES TOTAL PER COUNTED LEUKOCYTES BY MANUAL COUNT Normal [facility] Comment on above: Performed By: #### L [id number], [id number] ####Manufacturing Helper: MARY SOTELO ([phone])[facility] ([facility])[address] [place] [address] RBC MORPHOLOGY IN BLOOD abnormal Normal [facility] Comment on above: Performed By: #### L [id number], [id number] ####Manufacturing Helper: MARY SOTELO ([phone])[facility] ([facility])[address] [place] [address] SEGMENTED NEUTROPHILS (10*3/UL) IN BLOOD-CELLAVISION 2.3 10*3/uL Normal 1.8-7.5 [facility] Comment on above: Performed By: #### Dora [id number], [id number] ####Manufacturing Helper: MARY SOTELO ([phone])[facility] ([facility])[address] [place] [address] [place] SEGMENTED NEUTROPHILS/100 LEUKOCYTES-CE 91 % High 38-82 [facility] Comment on above: Performed By: #### L [id number], [id number] ####Manufacturing Helper: MARY SOTELO ([phone])[facility] ([facility])[address] [place] [address] [place] UNCLASSIFIED CELLS TOTAL PER COUNTED LEUKOCYTES BY MANUAL COUNT Normal [facility] Comment on above: Performed By: #### L [id number], [id number] ####Manufacturing Helper: MARY SOTELO ([phone])[facility] ([facility])[address] [place] [address] [place] VARIANT LYMPHOCYTES TOTAL PER COUNTED LEUKOCYTES BY MANUAL COUNT Normal [facility] Comment on above: Performed By: #### L [id number], [id number] ####Manufacturing Helper: MARY SOTELO ([phone])[facility] ([facility])[address] [place] [address] No Panel Informationon 08-13 Interpretation and review of laboratory results Abnormal [facility] Interpretation and review of laboratory results Abnormal [facility] Interpretation and review of laboratory results Abnormal [facility] Interpretation and review of laboratory results Abnormal [facility] Interpretation and review of laboratory results Normal [facility] Interpretation and review of laboratory results Abnormal [facility] Interpretation and review of laboratory results Abnormal [facility] Interpretation and review of laboratory results Abnormal [facility] Source Of Oxygen 30% Oxygen [facility] Interpretation and review of laboratory results Abnormal [facility] Bands Manual 2 [facility] Lymphocytes Manual 7 [facility] Monocytes Manual 0 [facility] Neutrophils Manual 90 [facility] No Panel InformationOrdered By: Tanisha Main on 08-13-2024 Interpretation and review of laboratory results Abnormal [facility] mecA/C (MRSE/MRSL) Detected Abnormal Not Detected [facility] Staphylococcus epidermidis Detected Abnormal Not Detected [facility] Nursing Noteon 08-13-2024 Nursing Note Normal [facility] PHOSPHORUSon 08-13-2024 Phosphate [Mass/Vol] 3.0 mg/dL Normal 2.5-4.5 [facility] Comment on above: Performed By: #### L AB15, [id number], [id number] ####Manufacturing Helper: MARY SOTELO ([phone])[facility] ([facility])[address] [place] [address] PROTIME AND APTTon aPTT Coag (Bld) [Time] 29.6 s Normal 20.0-30.5 [facility] Comment on above: Performed By: #### L [id number] ####Manufacturing Helper: MARY SOTELO ([phone])[facility] ([facility])[address] [place] [address] INR Coag (PPP) [Relative time] 1.0 {INR} Normal 0.9-1.1 [facility] Comment on above: Result Comment: Elias [...] prevent Myocardial Infarction Performed By: #### L [id number] ####Manufacturing Helper: MARY SOTELO ([phone])[facility] ([facility])[address] [place] [address] PT Coag (PPP) [Time] 11.6 s Normal 9.0-12.0 [facility] Comment on above: Performed By: #### L [id number] ####Manufacturing Helper: MARY SOTELO ([phone])[facility] ([facility])[address] [place] [address] Progress Noteon 08-13-2024 Progress Note Chart reviewed, as I was notified via [facility] of patient's readmission to [facility] yesterday (08/12) with altered mental status. Closing patient's transitional program at this time d/t her readmission. Normal [facility] Progress Note Normal [facility] Progress Note Normal [facility] RESPIRATORY PATHOGENS PANEL BY PCRon 08-13-2024 RESPIRATORY PATHOGENS PANEL BY PCR Normal [facility] Comment on above: Performed By: #### L [id number] ####Manufacturing Helper: MARY SOTELO ([phone])[facility] ([facility])[address] [place] [address] Respiratory pathogens DNA an d RNA panel MARISA+non-probe (Nph)on 08-13-2024 Adenovirus Not detected Not Detected [facility] B. pertussis DNA MARISA+probe Ql (Unsp spec) Not detected Not Detected [facility] Bordetella parapertussis Not detected Not Detected [facility] Chlamydia pneumoniae Not detected Not Detected [facility] Coronavirus 229E Not detected Not Detected [facility] Coronavirus HKU1 Not detected Not Detected [facility] Coronavirus NL63 Not detected Not Detected [facility] Coronavirus OC43 Not detected Not Detected [facility] FLUAV RNA MARISA+non-probe Ql (Nph) Not detected Not Detected [facility] FLUBV RNA MARISA+non-probe Ql (Nph) Not detected Not Detected [facility] Human Metapneumovirus Not detected Not Detected [facility] Human Rhinovirus/Enterovirus Not detected Not Detected [facility] Interpretation and review of laboratory results Normal [facility] Mycoplasma pneumoniae Not detected Not Detected [facility] Parainfluenza 1 Not detected Not Detected [facility] Parainfluenza 2 Not detected Not Detected [facility] Parainfluenza 3 Not detected Not Detected [facility] Parainfluenza 4 Not detected Not Detected [facility] Respiratory Syncytial Virus Not detected Not Detected [facility] SARS-CoV-2 (COVID-19) RNA MARISA+non-probe Ql (Nph) Not detected Not Detected [facility] TROPONIN Ion 08-13-2024 Troponin I.cardiac [Mass/Vol] 0.074 ng/mL High <0.034 [facility] Comment on above: Result Comment: BINA Olivarez COMMENTS:Patients with high levels of Biotin oral intake (ie >5 mg/day) may have falsely decreased Troponin levels. Performed By: #### L [id number] ####Manufacturing Helper: MARY SOTELO ([phone])[address] Troponin I.cardiac [Mass/Vol] 0.070 ng/mL High <0.034 [facility] Comment on above: Result Comment: BINA Olivarez COMMENTS:Patients with high levels of Biotin oral intake (ie >5 mg/day) may have falsely decreased Troponin levels. Performed By: #### L [id number] ####Manufacturing Helper: MARY SOTELO ([phone])[facility])[address] [place] [address] [place] Troponin I.cardiac [Mass/Vol] 0.073 ng/mL High <0.034 [facility] Comment on above: Result Comment: BINA Olivarez COMMENTS:Patients with high levels of Biotin oral intake (ie >5 mg/day) may have falsely decreased Troponin levels. Performed By: #### L [id number] ####Manufacturing Helper: MARY SOTELO ([phone])[facility])[address] [place] [address] TROPONIN, WITH SERIAL REFLEX on 08-13-2024 Troponin I.cardiac [Mass/Vol] 0.065 ng/mL High <0.034 [facility] Comment on above: Result Comment: BINA Olivarez COMMENTS:Patients with high levels of Biotin oral intake (ie >5 mg/day) may have falsely decreased Troponin levels. Performed By: #### L AB89, [id number], [id number], [id number] ####Manufacturing Helper: MARY SOTELO ([phone])[facility] ([facility])[address] [place] [address] Troponin I.cardiac [Mass/Vol ]on 08-13-2024 Interpretation and review of laboratory results Abnormal [facility] Interpretation and review of laboratory results Abnormal [facility] Interpretation and review of laboratory results Abnormal [facility] Interpretation and review of laboratory results Abnormal [facility] URINE CULTUREon 08-13-2024 Bacteria identified Cx Nom (U) Normal [facility] Comment on above: Performed By: #### L [id number] ####Manufacturing Helper: MARY SOTELO ([phone])[facility] ([facility])[address] [place] [address] Urinalysis complete panel (U )on 08-13-2024 Bacteria LM.HPF (Urine sed) [#/Area] Few Abnormal Negative /HPF [facility] Bilirubin Ql (U) Negative Negative mg/dL [facility] Clarity (U) Extra Turbid Abnormal Clear [facility]alt [facility] Color (U) Yellow Lt. Yellow [facility] Epithelial cells.squamous LM.HPF (Urine sed) [#/Area] 0-2 [facility] Glucose Ql (U) Normal Normal (<70) mg/dL [facility] Hemoglobin Ql (U) 0.2 mg/dL Abnormal Negative [facility] Interpretation and review of laboratory results Abnormal [facility] Ketones (U) [Mass/Vol] Trace Abnormal Negat pawan mg/dL [facility] Leukocyte clumps LM.HPF (Urine sed) [#/Area] Occasional Abnormal Negative /HPF [facility] Leukocyte esterase Test strip Ql (U) 500 Abnormal Negative Bere/uL [facility] Mucus LM.HPF (Urine sed) [#/Area] Few Negative /LPF [facility] Nitrite Ql (U) Negative Negative [facility] Non-Squamous Epithalial Cells, Urine 0-2 Abnormal Negative /HPF [facility] pH (U) 5.5 [pH] 5.0 - 8.0 pH [facility] Protein (U) [Mass/Vol] 100 mg/dL Abnormal Negative [facility] RBC LM.HPF (Urine sed) [#/Area] 11-25 Abnormal [facility] Specific gravity (U) [Rel density] 1.021 1.005 - 1.030 [facility] Urobilinogen (U) [Mass/Vol] Normal Normal (0-1) mg/dL [facility] WBC LM.HPF (Urine sed) [#/Area] /[HPF] Abnormal [facility] Yeast.budding LM.HPF (Urine sed) [#/Area] Many Abnormal Negative /HPF [facility] BASIC METABOLIC PANELon 10-1 0-2023 Anion gap [Moles/Vol] 4 mmol/L Normal 3-13 [facility] Comment on above: Performed By: #### L [id number], [id number], [id number] ####Manufacturing Helper: MARY SOTELO ([phone])[address] Calcium [Mass/Vol] 6.6 mg/dL Low 8.4-10.4 [facility] Comment on above: Performed By: #### L [id number], LAB15, [id number] ####Manufacturing Helper: MARY SOTELO ([phone])[address] Chloride [Moles/Vol] 100 mmol/L Normal 98-107 [facility] Comment on above: Performed By: #### L [id number], LAB15, [id number] ####Manufacturing Helper: MARY SOTELO ([phone])[facility] [place] [address] [place] CO2 [Moles/Vol] 28 mmol/L Normal 22-30 [facility] Comment on above: Performed By: #### L [id number], LAB15, [id number] ####Manufacturing Helper: MARY SOTELO ([phone])[facility])[address] [place] [address] Creatinine [Mass/Vol] 2.38 mg/dL High 0.52-1.04 [facility] Comment on above: Performed By: #### L [id number], LAB15, [id number] ####Manufacturing Helper: MARY SOTELO ([phone])[facility])[address] [place] [address] GLOMERULAR FILTRATION RATE ML/MIN/1.73 SQ M.PREDICTED 22.3 mL/min/1.73m*2 Low >60.0 [facility] Comment on above: Result Comment: Calc ulation based on the Chronic Kidney Disease Epidemiology Collaboration (CKD-EPI) equation refit without adjustment for race Performed By: #### L [id number], LAB15, [id number] ####Manufacturing Helper: MARY SOTELO ([phone])[facility])[address] [place] [address] Glucose [Mass/Vol] 229 mg/dL High 70-100 [facility] Comment on above: Performed By: #### L [id number], LAB15, [id number] ####Manufacturing Helper: MARY SOTELO ([phone])[facility])[address] [place] [address] Potassium [Moles/Vol] 3.6 mmol/L Normal 3.5-5.1 [facility] Comment on above: Performed By: #### L [id number], LAB15, [id number] ####Manufacturing Helper: MARY SOTELO ([phone])[facility])[address] [place] [address] Sodium [Moles/Vol] 132 mmol/L Low 135-145 [facility] Comment on above: Performed By: #### L [id number], LAB15, [id number] ####Manufacturing Helper: MARY SOTELO ([phone])[facility] ([facility])[address] [place] [address] Urea nitrogen [Mass/Vol] 19 mg/dL High 7-17 [facility] Comment on above: Performed By: #### L [id number], LAB15, [id number] ####Manufacturing Helper: MARY SOTELO ([phone])[facility] ([facility])[address] [place] [address] BLOOD CULTUREon 08-12-2024 Bacteria identified Cx Nom (Bld) Normal [facility] Comment on above: Performed By: #### L [id number] ####Manufacturing Helper: MARY SOTELO ([phone])[facility])[address] [place] [address] Performed By: #### L [id number], [id number] ####Manufacturing Helper: MARY SOTELO ([phone])[facility])[address] [place] [address] BLOOD CULTURE IDENTIFICATION - AEROBICon 08-12-2024 BLOOD CULTURE IDENTIFICATION - AEROBIC Normal [facility] Comment on above: Performed By: #### L [id number], [id number] ####Manufacturing Helper: MARY SOTELO ([phone])[facility])[address] [place] [address] BLOOD GAS, VENOUSon 08-12-20 24 Base excess Calc (BldV) [Moles/Vol] -2.5000 mmol/L Normal -3.0-3.0 [facility] Comment on above: Performed By: #### L [id number] ####Manufacturing Helper: MARY SOTELO ([phone])[facility])[address] [place] [address] CO2 [Moles/Vol] 26.1 mmol/L Normal 24.0-28.0 [facility] Comment on above: Performed By: #### L AB79 ####Manufacturing Helper: MARY SOTELO ([phone])[facility] [place] [address] HCO3 (Bld) [Moles/Vol] 24.5 mmol/L Normal 23.0-27.0 [facility] Comment on above: Performed By: #### L AB79 ####Manufacturing Helper: MARY SOTELO ([phone])[facility] ([facility])[address] [place] [address] Hemoglobin (Bld) [Mass/Vol] 9.6 g/dL Normal Screen only [facility] Comment on above: Performed By: #### L AB79 ####Manufacturing Helper: MARY SOTELO ([phone])[facility])[address] [place] [address] OXYGEN (MM HG) IN VENOUS BLOOD 57.8 mm Hg Normal [facility] Comment on above: Performed By: #### L AB79 ####Manufacturing Helper: MARY SOTELO ([phone])[facility])[address] [place] [address] OXYGEN SATURATION (%) IN VENOUS BLOOD 89.0 % Normal [facility] Comment on above: Performed By: #### L [id number] ####Manufacturing Helper: MARY SOTELO ([phone])[facility])[address] [place] [address] PCO2, ROHIT 53.4 mm Hg Normal 40.0-55.0 [facility] Comment on above: Performed By: #### L [id number] ####Manufacturing Helper: MARY SOTELO ([phone])[facility])[address] [place] [address] PH VENOUS 7.279 Low 7.330-7.430 [facility] Comment on above: Performed By: #### L [id number] ####Manufacturing Helper: MARY SOTELO ([phone])[facility])[address] [place] [address] SOURCE OF OXYGEN 30% Oxygen Normal [facility] Comment on above: Result Comment: BINA Oliavrez COMMENTS:Assessment of oxygenation is best done with an arterial blood gas determination. Reference ranges for pO2, bicarbonate, and base excess are for mixed venous blood. Specimens drawn from a peripheral vein will often have higher values. Performed By: #### L AB79 ####Manufacturing Helper: MARY SOTELO ([phone])[facility] ([facility])[address] [place] [address] Base excess Calc (BldV) [Moles/Vol] -1.4000 mmol/L Normal -3.0-3.0 [facility] Comment on above: Performed By: #### L [id number] ####Manufacturing Helper: MARY SOTELO ([phone])[facility] ([facility])[address] [place] [address] CO2 [Moles/Vol] 27.7 mmol/L Normal 24.0-28.0 [facility] Comment on above: Performed By: #### L [id number] ####Manufacturing Helper: MARY SOTELO ([phone])[facility] ([facility])[address] [place] [address] HCO3 (Bld) [Moles/Vol] 25.9 mmol/L Normal 23.0-27.0 [facility] Comment on above: Performed By: #### L [id number] ####Manufacturing Helper: MARY SOTELO ([phone])[facility] ([facility])[address] [place] [address] Hemoglobin (Bld) [Mass/Vol] 7.7 g/dL Normal Screen only [facility] Comment on above: Performed By: #### L [id number] ####Manufacturing Helper: MARY SOTELO ([phone])[facility] ([facility])[address] [place] [address] OXYGEN (MM HG) IN VENOUS BLOOD 73.2 mm Hg Normal [facility] Comment on above: Performed By: #### L [id number] ####Manufacturing Helper: MARY SOTELO ([phone])[facility] ([facility])[address] [place] [address] OXYGEN SATURATION (%) IN VENOUS BLOOD 94.9 % Normal [facility] Comment on above: Performed By: #### L AB79 ####Manufacturing Helper: MARY SOTELO ([phone])[facility])[address] [place] [address] PCO2, ROHIT 58.7 mm Hg High 40.0-55.0 [facility] Comment on above: Performed By: #### L [id number] ####Manufacturing Helper: MARY SOTELO ([phone])[facility])[address] [place] [address] PH VENOUS 7.262 Low 7.330-7.430 [facility] Comment on above: Performed By: #### L [id number] ####Manufacturing Helper: MARY SOTELO ([phone])[facility])[address] [place] [address] SOURCE OF OXYGEN Bi-PAP Normal [facility] Comment on above: Result Comment: BINA [...] higher values. Performed By: #### L [id number] ####Manufacturing Helper: MARY SOTELO ([phone])[facility] ([facility])[address] [place] [address] Base excess Calc (BldV) [Moles/Vol] -0.7000 mmol/L Normal -3.0-3.0 [facility] Comment on above: Performed By: #### L [id number] ####Manufacturing Helper: MARY SOTELO ([phone])[facility] ([facility])[address] [place] [address] CO2 [Moles/Vol] 33.5 mmol/L High 24.0-28.0 [facility] Comment on above: Performed By: #### L [id number] ####Manufacturing Helper: MARY SOTELO ([phone])[facility])[address] [place] [address] HCO3 (Bld) [Moles/Vol] 30.4 mmol/L High 23.0-27.0 S [facility] Comment on above: Performed By: #### L AB79 ####Manufacturing Helper: MARY SOTELO ([phone])[facility] ([facility])[address] [place] [address] Hemoglobin (Bld) [Mass/Vol] 9.1 g/dL Normal Screen only [facility] Comment on above: Performed By: #### L [id number] ####Manufacturing Helper: MARY SOTELO ([phone])[facility] ([facility])[address] [place] [address] OXYGEN (MM HG) IN VENOUS BLOOD 44.4 mm Hg Normal [facility] Comment on above: Performed By: #### L [id number] ####Manufacturing Helper: MARY SOTELO ([phone])[facility])[address] [place] [address] OXYGEN SATURATION (%) IN VENOUS BLOOD 74.5 % Normal [facility] Comment on above: Performed By: #### L [id number] ####Manufacturing Helper: MARY SOTELO ([phone])[facility] ([facility])[address] [place] [address] [place] PCO2, ROHIT 101.8 mm Hg High 40.0-55.0 [facility] Comment on above: Performed By: #### L AB79 ####Manufacturing Helper: MARY SOTELO ([phone])[facility])[address] [place] [address] PH VENOUS 7.093 Low 7.330-7.430 [facility] Comment on above: Performed By: #### L AB79 ####Manufacturing Helper: MARY SOTELO ([phone])[facility])[address] [place] [address] SOURCE OF OXYGEN Nasal cannula Normal [facility] Comment on above: Result Comment: Huey [...] a syringe. Performed By: #### L AB79 ####Manufacturing Helper: MARY SOTELO ([phone])[facility])[address] [place] [address] BLOOD TYPE AND SCREEN GELon 08-12-2024 ABO GROUPING O Normal [facility] Comment on above: Performed By: #### L [id number] ####Manufacturing Helper: MARY SOTELO ([phone])[facility] ([facility])[address] [place] [address] RH TYPE IN BLOOD Positive Normal [facility] Comment on above: Performed By: #### L [id number] ####Manufacturing Helper: MARY SOTELO ([phone])[facility] ([facility])[address] [place] [address] CBC WITH AUTO DIFFERENTIALon 08-12-2024 Basophils (Bld) [#/Vol] 0.0 10*3/uL Normal 0.0-0.2 [facility] Comment on above: Performed By: #### L [id number], [id number] ####Manufacturing Helper: MARY SOTELO ([phone])[facility])[address] [place] [address] Basophils/100 WBC (Bld) 0.8 % Normal 0.0-2.0 [facility] Comment on above: Performed By: #### L [id number], [id number] ####Manufacturing Helper: MARY SOTELO ([phone])[facility])[address] [place] [address] Eosinophils (Bld) [#/Vol] 0.1 10*3/uL Normal 0.0-0.5 [facility] Comment on above: Performed By: #### L [id number], [id number] ####Manufacturing Helper: MARY SOTELO ([phone])[facility])[address] [place] [address] Eosinophils/100 WBC (Bld) 2.9 % Normal 0.0-6.0 [facility] Comment on above: Performed By: #### Dora AB296 [id number] ####Manufacturing Helper: MARY SOTELO ([phone])[address] Erythrocyte distribution width (RBC) [Ratio] 16.4 % High 11.5-15.0 [facility] Comment on above: Performed By: #### Dora [id number], [id number] ####Manufacturing Helper: MARY SOTELO ([phone])[address] Hematocrit (Bld) [Volume fraction] 22.3 % Low 35.0-47.0 [facility] Comment on above: Performed By: #### Dora AB296 [id number] ####Manufacturing Helper: MARY SOTELO ([phone])[address] Hemoglobin (Bld) [Mass/Vol] 6.9 g/dL Critically low 11.7-16.0 [facility] Comment on above: Performed By: #### Dora AB296 [id number] ####Manufacturing Helper: MARY SOTELO ([phone])[address] IMMATURE GRANS % 0.5 % Normal 0.0-2.0 [facility] Comment on above: Performed By: #### Dora AB296 [id number] ####Manufacturing Helper: MARY SOTELO ([phone])[address] IMMATURE GRANS ABSOLUTE 0.0 10*3/uL Normal <0.1 [facility] Comment on above: Performed By: #### L [id number], [id number] ####Manufacturing Helper: MARY SOTELO ([phone])[address] IPF 4 Normal [facility] Comment on above: Performed By: #### L [id number], [id number] ####Manufacturing Helper: MARY SOTELO ([phone])[facility])[address] [place] [address] Lymphocytes (Bld) [#/Vol] 0.6 10*3/uL Low 1.0-4.3 [facility] Comment on above: Performed By: #### L [id number], [id number] ####Manufacturing Helper: MARY SOTELO ([phone])[facility])[address] [place] [address] Lymphocytes/100 WBC (Bld) 14.8 % Low 15.0-45.0 [facility] Comment on above: Performed By: #### L [id number], [id number] ####Manufacturing Helper: MARY SOTELO ([phone])[facility])[address] [place] [address] MCH (RBC) [Entitic mass] 28.9 pg Normal 26.0-34.0 [facility] Comment on above: Performed By: #### L [id number], [id number] ####Manufacturing Helper: MARY SOTELO ([phone])[facility])[address] [place] [address] MCHC 30.9 % Normal 30.5-36.0 [facility] Comment on above: Performed By: #### L [id number], [id number] ####Manufacturing Helper: MARY SOTELO ([phone])[facility])[address] [place] [address] MCV (RBC) [Entitic vol] 93.3 fL Normal 77.0-99.0 [facility] Comment on above: Performed By: #### L [id number], [id number] ####Manufacturing Helper: MARY SOTELO ([phone])[facility])[address] [place] [address] Monocytes (Bld) [#/Vol] 0.2 10*3/uL Normal 0.0-0.9 [facility] Comment on above: Performed By: #### L [id number], [id number] ####Manufacturing Helper: MARY SOTELO ([phone])[facility] ([facility])[address] [place] [address] Monocytes/100 WBC (Bld) 5.0 % Normal 5.0-13.0 [facility] Comment on above: Performed By: #### L [id number], [id number] ####Manufacturing Helper: MARY SOTELO ([phone])[facility] ([facility])[address] [place] [address] NEUTROPHILS ABSOLUTE 2.9 10*3/uL Normal 1.8-7.5 [facility] Comment on above: Performed By: #### Dora [id number], [id number] ####Manufacturing Helper: MARY SOTELO ([phone])[facility] ([facility])[address] [place] [address] Neutrophils/100 WBC (Bld) 76.0 % Normal 38.0-82.0 [facility] Comment on above: Performed By: #### Dora AB296, [id number] ####Manufacturing Helper: MARY SOTELO ([phone])[facility] ([facility])[address] [place] [address] NRBC 0.0 /100 WBCs Normal 0.0-2.0 [facility] Comment on above: Performed By: #### Dora AB296, [id number] ####Manufacturing Helper: MARY SOTELO ([phone])[facility] ([facility])[address] [place] [address] Platelet mean volume (Bld) [Entitic vol] 10.6 fL Normal 9.0-12.7 [facility] Comment on above: Performed By: #### L [id number], [id number] ####Manufacturing Helper: MARY SOTELO ([phone])[facility] ([facility])[address] [place] [address] Platelets (Bld) [#/Vol] 85 10*3/uL Low 140-440 [facility] Comment on above: Performed By: #### L [id number], [id number] ####Manufacturing Helper: MARY SOTELO ([phone])[facility] ([facility])[address] [place] [address] RBC (Bld) [#/Vol] 2.39 10*6/uL Low 3.80-5.20 [facility] Comment on above: Performed By: #### L [id number], [id number] ####Manufacturing Helper: MRAY SOTELO ([phone])[facility] ([facility])[address] [place] [address] WBC (Bld) [#/Vol] 3.8 10*3/uL Normal 3.6-10.[address] [facility] Comment on above: Performed By: #### L [id number], [id number] ####Manufacturing Helper: MARY SOTELO ([phone])[facility] ([facility])[address] [place] [address] Basophils (Bld) [#/Vol] 0.0 10*3/uL Normal 0.0-0.2 [facility] Comment on above: Performed By: #### L [id number] ####Manufacturing Helper: MARY SOTELO ([phone])[facility] ([facility])[address] [place] [address] Basophils/100 WBC (Bld) 0.8 % Normal 0.0-2.0 [facility] Comment on above: Performed By: #### L [id number] ####Manufacturing Helper: MARY SOTELO ([phone])[facility])[address] [place] [address] Eosinophils (Bld) [#/Vol] 0.1 10*3/uL Normal 0.0-0.[address] [facility] Comment on above: Performed By: #### L [id number] ####Manufacturing Helper: MARY SOTELO ([phone])[facility])[address] [place] [address] Eosinophils/100 WBC (Bld) 2.5 % Normal 0.0-6.0 [facility] Comment on above: Performed By: #### L [id number] ####Manufacturing Helper: MARY SOTELO ([phone])[facility] ([facility])[address] [place] [address] Erythrocyte distribution width (RBC) [Ratio] 16.5 % High 11.5-15.0 [facility] Comment on above: Performed By: #### L [id number] ####Manufacturing Helper: MARY SOTELO ([phone])[facility])[address] [place] [address] Hematocrit (Bld) [Volume fraction] 26.5 % Low 35.0-47.0 [facility] Comment on above: Performed By: #### L [id number] ####Manufacturing Helper: MARY SOTELO ([phone])[facility])[address] [place] [address] Hemoglobin (Bld) [Mass/Vol] 7.9 g/dL Low 11.7-16.0 [facility] Comment on above: Performed By: #### L [id number] ####Manufacturing Helper: MARY SOTELO ([phone])[facility] ([facility])[address] [place] [address] IMMATURE GRANS % 0.6 % Normal 0.0-2.0 [facility] Comment on above: Performed By: #### L [id number] ####Manufacturing Helper: MARY SOTELO ([phone])[facility])[address] [place] [address] IMMATURE GRANS ABSOLUTE 0.0 10*3/uL Normal <0.1 [facility] Comment on above: Performed By: #### L [id number] ####Manufacturing Helper: MARY SOTELO ([phone])[facility])[address] [place] [address] IPF 5 Normal [facility] Comment on above: Performed By: #### L [id number] ####Manufacturing Helper: MARY SOTELO ([phone])[facility])[address] [place] [address] Lymphocytes (Bld) [#/Vol] 1.3 10*3/uL Normal 1.0-4.3 [facility] Comment on above: Performed By: #### L [id number] ####Manufacturing Helper: MARY SOTELO ([phone])[facility])[address] [place] [address] Lymphocytes/100 WBC (Bld) 27.1 % Normal 15.0-45.0 [facility] Comment on above: Performed By: #### L [id number] ####Manufacturing Helper: MARY SOTELO ([phone])[facility])[address] [place] [address] MCH (RBC) [Entitic mass] 28.4 pg Normal 26.0-34.0 [facility] Comment on above: Performed By: #### L [id number] ####Manufacturing Helper: MARY SOTELO ([phone])[facility])[address] [place] [address] MCHC 29.8 % Low 30.5-36.0 [facility] Comment on above: Performed By: #### L [id number] ####Manufacturing Helper: MARY SOTELO ([phone])[facility])[address] [place] [address] MCV (RBC) [Entitic vol] 95.3 fL Normal 77.0-99.0 [facility] Comment on above: Performed By: #### L [id number] ####Manufacturing Helper: MARY SOTELO ([phone])[facility])[address] [place] [address] Monocytes (Bld) [#/Vol] 0.6 10*3/uL Normal 0.0-0.9 [facility] Comment on above: Performed By: #### L [id number] ####Manufacturing Helper: MARY SOTELO ([phone])[facility])[address] [place] [address] Monocytes/100 WBC (Bld) 13.4 % High 5.0-13.0 [facility] Comment on above: Performed By: #### L [id number] ####Manufacturing Helper: MARY SOTELO ([phone])[facility] ([facility])[address] [place] [address] NEUTROPHILS ABSOLUTE 2.7 10*3/uL Normal 1.8-7.5 [facility] Comment on above: Performed By: #### L [id number] ####Manufacturing Helper: MARY SOTELO ([phone])[facility] ([facility])[address] [place] [address] Neutrophils/100 WBC (Bld) 55.6 % Normal 38.0-82.0 [facility] Comment on above: Performed By: #### L [id number] ####Manufacturing Helper: MARY SOTELO ([phone])[facility])[address] [place] [address] NRBC 0.0 /100 WBCs Normal 0.0-2.0 [facility] Comment on above: Performed By: #### L [id number] ####Manufacturing Helper: MARY SOTELO ([phone])[facility] ([facility])[address] [place] [address] Platelet mean volume (Bld) [Entitic vol] 11.3 fL Normal 9.0-12.7 [facility] Comment on above: Performed By: #### L [id number] ####Manufacturing Helper: MARY SOTELO ([phone])[facility] ([facility])[address] [place] [address] [place] Platelets (Bld) [#/Vol] 89 10*3/uL Low 140-440 [facility] Comment on above: Performed By: #### L [id number] ####Manufacturing Helper: MARY SOTELO ([phone])[facility] ([facility])[address] [place] [address] [place] RBC (Bld) [#/Vol] 2.78 10*6/uL Low 3.80-5.20 [facility] Comment on above: Performed By: #### L [id number] ####Manufacturing Helper: MARY SOTELO ([phone])[facility] ([facility])[address] [place] [address] WBC (Bld) [#/Vol] 4.8 10*3/uL Normal 3.6-10.7 [facility] Comment on above: Performed By: #### L [id number] ####Manufacturing Helper: MARY SOTELO ([phone])[facility])[address] [place] [address] COMPREHENSIVE METABOLIC PANE [place] 08-12-2024 Albumin [Mass/Vol] 2.9 g/dL Low 3.5-5.0 [facility] Comment on above: Performed By: #### L [id number] ####Manufacturing Helper: MARY SOTELO ([phone])[facility])[address] [place] [address] ALP [Catalytic activity/Vol] 52 U/L Normal 38-126 [facility] Comment on above: Performed By: #### L [id number] ####Manufacturing Helper: MARY SOTELO ([phone])[facility] ([facility])[address] [place] [address] ALT [Catalytic activity/Vol] 13 U/L Normal 0-34 [facility] Comment on above: Performed By: #### L [id number] ####Manufacturing Helper: MARY SOTELO ([phone])[facility] ([facility])[address] [place] [address] Anion gap [Moles/Vol] 7 mmol/L Normal 3-13 [facility] Comment on above: Performed By: #### L [id number] ####Manufacturing Helper: MARY SOTELO ([phone])[facility] ([facility])[address] [place] [address] AST [Catalytic activity/Vol] 18 U/L Normal 15-46 [facility] Comment on above: Performed By: #### L [id number] ####Manufacturing Helper: MARY SOTELO ([phone])[facility])[address] [place] [address] Bilirubin [Mass/Vol] 0.9 mg/dL Normal 0.2-1.3 [facility] Comment on above: Performed By: #### L [id number] ####Manufacturing Helper: MARY SOTELO ([phone])[facility] [place] [address] Calcium [Mass/Vol] 6.9 mg/dL Low 8.4-10.4 [facility] Comment on above: Performed By: #### L [id number] ####Manufacturing Helper: MARY SOTELO ([phone])[facility] [place] [address] [place] Chloride [Moles/Vol] 100 mmol/L Normal 98-107 [facility] Comment on above: Performed By: #### L AB17 ####Manufacturing Helper: MARY SOTELO ([phone])[facility] ([facility])[address] [place] [address] CO2 [Moles/Vol] 22 mmol/L Normal 22-30 [facility] Comment on above: Performed By: #### L [id number] ####Manufacturing Helper: MARY SOTELO ([phone])[facility] [place] [address] Creatinine [Mass/Vol] 2.56 mg/dL High 0.52-1.04 [facility] Comment on above: Performed By: #### L [id number] ####Manufacturing Helper: MARY SOTELO ([phone])[facility] ([facility])[address] [place] [address] [place] GLOMERULAR FILTRATION RATE ML/MIN/1.73 SQ M.PREDICTED 20.4 mL/min/1.73m*2 Low >60.0 [facility] Comment on above: Result Comment: Calc ulation based on the Chronic Kidney Disease Epidemiology Collaboration (CKD-EPI) equation refit without adjustment for race Performed By: #### L AB17 ####Manufacturing Helper: MARY SOTELO ([phone])[facility] [place] [address] [place] Glucose [Mass/Vol] 220 mg/dL High 70-100 [facility] Comment on above: Performed By: #### L AB17 ####Manufacturing Helper: MARY SOTELO ([phone])[facility] ([facility])[address] [place] [address] Potassium [Moles/Vol] 4.2 mmol/L Normal 3.5-5.1 [facility] Comment on above: Performed By: #### L AB17 ####Manufacturing Helper: MARY SOTELO ([phone])[facility])[address] [place] [address] Protein [Mass/Vol] 5.2 g/dL Low 6.3-8.2 [facility] Comment on above: Performed By: #### L AB17 ####Manufacturing Helper: MARY SOTELO ([phone])[facility])[address] [place] [address] Sodium [Moles/Vol] 130 mmol/L Low 135-145 [facility] Comment on above: Performed By: #### L AB17 ####Manufacturing Helper: MARY SOTELO ([phone])[facility] ([facility])[address] [place] [address] Urea nitrogen [Mass/Vol] 20 mg/dL High 7-17 [facility] Comment on above: Performed By: #### L AB17 ####Manufacturing Helper: MARY SOTELO ([phone])[facility])[address] [place] [address] CT HEAD NECK ANGIO W AND WO IV CONTRASTon 08-12-2024 CT HEAD NECK ANGIO W AND WO IV CONTRAST Normal [facility] CT HEAD WO IV CONTRASTon CT HEAD WO IV CONTRAST Normal [facility] CT HEAD WO IV CONTRAST Normal [facility] CT Head WO contraston [address] [...] Electronically Signed Date/Time: 08/12/2024 8:18 AM EDT [facility] Name[facility] DEN[facility] 1960 [id number] Exam Date/Time: 08/11/2024 15:35 Procedure: CT HEAD [...] orbits and extracranial soft tissues are unremarkable. [facility] Reece Mckinley MD - 08/12/2024 Patient Name: SANDY DENG : 1960 [id number] Exam Date/Time: 08/11/2024 15:35 Procedure: CT HEAD [...] Electronically Signed Date/Time: 08/12/2024 8:18 AM EDT [facility] CT Head WO contrastOrdered B y: Reece Mckinley on 08-12-2024 [facility] Work Phone: CT PERFUSIONon 08-12-2024 CT PERFUSION Normal [facility] Consulton 08-12-2024 Consult Normal [facility] ECG 12-LEADon 08-12-2024 ECG 12-LEAD IMPRESSION: Sinus rhythm Consider left ventricular hypertrophy Electronically Signed On 08-12-2024 18:40:59 EDT by Fabrizio Guillory Normal [facility] ED Nursing Noteon 08-12-2024 ED Nursing Note Report given to Jordon Doan RN 08/12/24 1634 Normal [facility] ED Nursing Note ICU at bedside. Clari Bronson RN 08/12/24 1517 Normal [facility] ED Provider Noteon ED Provider Note Normal [facility] FERRITINon 08-12-2024 Ferritin [Mass/Vol] 231 ng/mL Normal 11-264 [facility] Comment on above: Performed By: #### L AB69, LAB68, [id number], LAB67 ####Manufacturing Helper: MARY SOTELO ([phone])[facility] ([address] FOLATEon 08-12-2024 FOLATE RESULT 10.8 ng/mL Normal >=2.9 [facility] Comment on above: Performed By: #### L AB69, LAB68, [id number], LAB67 ####Manufacturing Helper: MARY SOTELO ([phone])[facility] [place] [address] IDNon 08-12-2024 IDN Normal [facility] IRON AND TIBCon 08-12-2024 IRON BINDING CAPACITY 158 ug/dL Low 261-497 [facility] Comment on above: Performed By: #### L [id number] ####Manufacturing Helper: MARY SOTELO ([phone])[facility] ([facility])[address] [place] [address] IRON SATURATION 45 % Normal 15-50 [facility] Comment on above: Performed By: #### L [id number] ####Manufacturing Helper: MARY SOTELO ([phone])[facility] ([facility])[address] [place] [address] IRON, TOTAL 71 ug/dL Normal 37-170 [facility] Comment on above: Performed By: #### L [id number] ####Manufacturing Helper: MARY SOTELO ([phone])[facility] ([facility])[address] [place] [address] LACTIC ACID WITH REFLEXon Lactate [Moles/Vol] 1.6 mmol/L Normal 0.7-2.0 [facility] Comment on above: Performed By: #### L [id number] ####Manufacturing Helper: MARY SOTELO ([phone])[facility] ([facility])[address] [place] [address] NT PRO BNPon 08-12-2024 NT PRO BNP >36099 High <125 [facility] Comment on above: Performed By: #### L [id number], [id number], [id number] ####Manufacturing Helper: MARY SOTELO ([phone])[facility] ([facility])[address] [place] [address] Nursing Noteon 08-12-2024 Nursing Note Normal [facility] RETICULOCYTESon 08-12-2024 Reticulocytes/100 RBC (Bld) 2.41 % Normal [facility] Comment on above: Result Comment: Newb orn < 5%Adults 0.4 - 2.0% Performed By: #### L [id number], [id number] ####Manufacturing Helper: MARY SOTELO ([phone])[facility])[address] [place] [address] [place] TROPONIN Ion 08-12-2024 Troponin I.cardiac [Mass/Vol] 0.052 ng/mL High <0.034 [facility] Comment on above: Result Comment: BINA R COMMENTS:Patients with high levels of Biotin oral intake (ie >5 mg/day) may have falsely decreased Troponin levels. Performed By: #### L AB69, LAB68, [id number], LAB67 ####Manufacturing Helper: MARY SOTELO ([phone])[facility])[address] [place] [address] Troponin I.cardiac [Mass/Vol] 0.046 ng/mL High <0.034 [facility] Comment on above: Result Comment: BINA R COMMENTS:Patients with high levels of Biotin oral intake (ie >5 mg/day) may have falsely decreased Troponin levels. Performed By: #### L [id number] ####Manufacturing Helper: MARY SOTELO ([phone])[facility])[address] [place] [address] [place] TROPONIN, WITH SERIAL REFLEX on 08-12-2024 Troponin I.cardiac [Mass/Vol] 0.046 ng/mL High <0.034 [facility] Comment on above: Result Comment: BINA R COMMENTS:Patients with high levels of Biotin oral intake (ie >5 mg/day) may have falsely decreased Troponin levels. Performed By: #### L [id number], LAB15, [id number] ####Manufacturing Helper: MARY SOTELO ([phone])[facility] ([facility])[address] [place] [address] VITAMIN B12on 10-10-2024 Cobalamin (Vitamin B12) [Mass/Vol] 932 pg/mL High 239-931 [facility] Comment on above: Performed By: #### L AB69, LAB68, QCC096, LAB67 ####Manufacturing Helper: MARY SOTELO ([phone])[facility] ([facility])[address] [place] [address] [place] CARECOORDon 08-11-2024 [place] Patient Choice Patient Name: SANDY DENG Date of : 1960 Normal [facility] CT Head WO contraston 2023 Radiology Study observation (narrative) [facility] Progress Noteon 08-11-2024 Progress Note Normal [facility] BASIC METABOLIC PANELon Anion gap [Moles/Vol] 2 mmol/L Low 3-13 [facility] Comment on above: Performed By: #### L AB113, [id number], LAB15 ####Manufacturing Helper: MARY SOTELO ([phone])[facility] ([facility])[address] [place] [address] [place] Calcium [Mass/Vol] 6.6 mg/dL Low 8.4-10.4 [facility] Comment on above: Performed By: #### L AB113, [id number], LAB15 ####Manufacturing Helper: MARY SOTELO ([phone])[facility] ([facility])[address] [place] [address] [place] Chloride [Moles/Vol] 102 mmol/L Normal 98-107 [facility] Comment on above: Performed By: #### L AB113, [id number], LAB15 ####Manufacturing Helper: MARY SOTELO ([phone])[facility] ([facility])[address] [place] [address] [place] CO2 [Moles/Vol] 33 mmol/L High 22-30 [facility] Comment on above: Performed By: #### L AB113, [id number], LAB15 ####Manufacturing Helper: MARY SOTELO ([phone])[facility] ([facility])[address] [place] [address] Creatinine [Mass/Vol] 2.85 mg/dL High 0.52-1.04 [facility] Comment on above: Performed By: #### L AB113, [id number], LAB15 ####Manufacturing Helper: MARY SOTELO ([phone])[facility] ([facility])[address] [place] [address] GLOMERULAR FILTRATION RATE ML/MIN/1.73 SQ M.PREDICTED 17.9 mL/min/1.73m*2 Low >60.0 [facility] Comment on above: Result Comment: Calc ulation based on the Chronic Kidney Disease Epidemiology Collaboration (CKD-EPI) equation refit without adjustment for race Performed By: #### Dora AB113, [id number], LAB15 ####Manufacturing Helper: MARY SOTELO ([phone])[facility] ([facility])[address] [place] [address] Glucose [Mass/Vol] 110 mg/dL High 70-100 [facility] Comment on above: Performed By: #### Dora AB113, [id number], LAB15 ####Manufacturing Helper: MARY SOTELO ([phone])[facility] ([facility])[address] [place] [address] Potassium [Moles/Vol] 4.2 mmol/L Normal 3.5-5.1 [facility] Comment on above: Performed By: #### L AB113, [id number], LAB15 ####Manufacturing Helper: MARY SOTELO ([phone])[facility] ([facility])[address] [place] [address] [place] Sodium [Moles/Vol] 138 mmol/L Normal 135-145 [facility] Comment on above: Performed By: #### L AB113, [id number], LAB15 ####Manufacturing Helper: MARY SOTELO ([phone])[facility])[address] [place] [address] [place] Urea nitrogen [Mass/Vol] 25 mg/dL High 7-17 [facility] Comment on above: Performed By: #### L AB113, [id number], LAB15 ####Manufacturing Helper: MARY SOTELO ([phone])[facility] ([facility])[address] [place] [address] Basic metabolic 1998 panelon 08-10-2024 Anion gap [Moles/Vol] 2 mmol/L Low 3 - 13 mmol/L [facility] Calcium [Mass/Vol] 6.6 mg/dL Low 8.4 - 10. 4 mg/dL [facility] Chloride [Moles/Vol] 102 mmol/L 98 - 10 7 mmol/L [facility] CO2 [Moles/Vol] 33 mmol/L High 22 - 30 mmol/L [facility] Creatinine [Mass/Vol] 2.85 mg/dL High 0.52 - 1.04 mg/dL [facility] GFR/1.73 sq M.predicted (S/P/Bld) [Vol rate/Area] 17.9 mL/min Low - PINF [facility] Glucose [Mass/Vol] 110 mg/dL High 70 - 100 mg/dL [facility] Interpretation and review of laboratory results Abnormal [facility] Potassium [Moles/Vol] 4.2 mmol/L 3.5 - 5.1 mmol/L [facility] Sodium [Moles/Vol] 138 mmol/L 135 - 145 mmol/L [facility] Urea nitrogen [Mass/Vol] 25 mg/dL High 7 - 17 mg/dL [facility] C3, BLOODon 08-10-2024 C3, BLOOD 64 mg/dL Low 88-165 [facility] Comment on above: Performed By: #### L AB151, [id number] ####Manufacturing Helper: MARLENY GUZMÁN ([phone])[facility] ([facility])[address] C4 COMPLEMENTon 08-10-2024 C4, BLOOD 13 mg/dL Low 14-44 [facility] Comment on above: Performed By: #### L AB151, [id number] ####Manufacturing Helper: MARLENY GUZMÁN ([phone])[facility] ([facility])[address] CARECOORDon 08-10-2024 [place] Normal [facility] [place] Normal [facility] CARECOTROY Transportation set v ia cot through [facility] for today 08-10-24 @2pm to [facility]. TCC, RN, Car Racer, facility, Pt, and Pt's Jose notified. Normal [facility] CARECOORD Discharge med list transmitted to REHAB- [facility] via [facility] per TCC request. Normal [facility] CARECOORD She is approved 08/09-08/16 to [facility], [employer] operator to send mar today . Med team notified of auth and need discharge orders . Done. SW to arrange transport today . [facility] CBC W Auto Differential pane l (Bld)on 08-10-2024 Basophils (Bld) [#/Vol] 0.0 10*3/uL 0.0 - 0.2 10*3/uL [facility] Basophils/100 WBC (Bld) 0.2 % 0.0 - 2.0 % [facility] Eosinophils (Bld) [#/Vol] 0.3 10*3/uL 0.0 - 0.5 10*3/uL [facility] Eosinophils/100 WBC (Bld) 5.2 % 0.0 - 6.0 % [facility] Erythrocyte distribution width (RBC) [Ratio] 17.2 % High 11.5 - 15.0 % [facility] Hematocrit (Bld) [Volume fraction] 26.2 % Low 35.0 - 47.0 % [facility] Hemoglobin (Bld) [Mass/Vol] 7.8 g/dL Low 11.7 - 16.0 g/dL [facility] Immature granulocytes (Bld) [#/Vol] 0.1 10*3/uL High NINF - 0.1 10*3/uL [facility] Immature granulocytes/100 WBC (Bld) 0.8 % 0.0 - 2.0 % [facility] Interpretation and review of laboratory results Abnormal [facility] IPF 4 [facility] Lymphocytes (Bld) [#/Vol] 1.0 10*3/uL 1.0 - 4.3 10*3/uL [facility] Lymphocytes/100 WBC (Bld) 16.2 % 15.0 - 45.0 % [facility] MCH (RBC) [Entitic mass] 28.5 pg 26.0 - 34.0 pg [facility] MCHC (RBC) [Mass/Vol] 29.8 % Low 30.5 - 36.0 % [facility] MCV (RBC) [Entitic vol] 95.6 fL 77.0 - 99.0 fL [facility] Monocytes (Bld) [#/Vol] 0.4 10*3/uL 0.0 - 0.9 10*3/uL [facility] Monocytes/100 WBC (Bld) 6.2 % 5.0 - 13.0 % [facility] Neutrophils (Bld) [#/Vol] 4.3 10*3/uL 1.8 - 7.5 10*3/uL [facility] Neutrophils/100 WBC (Bld) 71.4 % 38.0 - 82.0 % [facility] Nucleated RBC/100 WBC (Bld) [Ratio] 0.0 % [facility] Platelet mean volume (Bld) [Entitic vol] 10.7 fL 9.0 - 12.7 fL [facility] Platelets (Bld) [#/Vol] 95 10*3/uL Low 140 - 440 10*3/uL [facility] RBC (Bld) [#/Vol] 2.74 10*6/uL Low 3.80 - 5.2 0 10*6/uL [facility] WBC (Bld) [#/Vol] 6.0 10*3/uL 3.6 - 10.7 10*3/uL [facility] CBC WITH AUTO DIFFERENTIALon 08-10-2024 Basophils (Bld) [#/Vol] 0.0 10*3/uL Normal 0.0-0.2 [facility] Comment on above: Performed By: #### L [id number] ####Manufacturing Helper: MARY SOTELO ([phone])[facility] ([address] Basophils/100 WBC (Bld) 0.2 % Normal 0.0-2.0 [facility] Comment on above: Performed By: #### L [id number] ####Manufacturing Helper: MARY SOTELO ([phone])[facility])[address] [place] [address] Eosinophils (Bld) [#/Vol] 0.3 10*3/uL Normal 0.0-0.5 [facility] Comment on above: Performed By: #### L [id number] ####Manufacturing Helper: MARY SOTELO ([phone])[facility])[address] [place] [address] Eosinophils/100 WBC (Bld) 5.2 % Normal 0.0-6.0 [facility] Comment on above: Performed By: #### L [id number] ####Manufacturing Helper: MARY SOTELO ([phone])[address] Erythrocyte distribution width (RBC) [Ratio] 17.2 % High 11.5-15.0 [facility] Comment on above: Performed By: #### L [id number] ####Manufacturing Helper: MARY SOTELO ([phone])[address] Hematocrit (Bld) [Volume fraction] 26.2 % Low 35.0-47.0 [facility] Comment on above: Performed By: #### L [id number] ####Manufacturing Helper: MARY SOTELO ([phone])[address] Hemoglobin (Bld) [Mass/Vol] 7.8 g/dL Low 11.7-16.0 [facility] Comment on above: Performed By: #### L [id number] ####Manufacturing Helper: MARY SOTELO ([phone])[address] IMMATURE GRANS % 0.8 % Normal 0.0-2.0 [facility] Comment on above: Performed By: #### L [id number] ####Manufacturing Helper: MARY SOTELO ([phone])[facility] ([facility])[address] [place] [address] IMMATURE GRANS ABSOLUTE 0.1 10*3/uL High <0.1 [facility] Comment on above: Performed By: #### L [id number] ####Manufacturing Helper: MARY SOTELO ([phone])[facility])[address] [place] [address] IPF 4 Normal [facility] Comment on above: Performed By: #### L [id number] ####Manufacturing Helper: MARY SOTELO ([phone])[facility])[address] [place] [address] Lymphocytes (Bld) [#/Vol] 1.0 10*3/uL Normal 1.0-4.3 [facility] Comment on above: Performed By: #### L [id number] ####Manufacturing Helper: MARY SOTELO ([phone])[address] Lymphocytes/100 WBC (Bld) 16.2 % Normal 15.0-45.0 [facility] Comment on above: Performed By: #### L [id number] ####Manufacturing Helper: MARY SOTELO ([phone])[facility])[address] [place] [address] MCH (RBC) [Entitic mass] 28.5 pg Normal 26.0-34.[address] [facility] Comment on above: Performed By: #### L [id number] ####Manufacturing Helper: MARY SOTELO ([phone])[address] MCHC 29.8 % Low 30.5-36.[address] [facility] Comment on above: Performed By: #### L [id number] ####Manufacturing Helper: MARY SOTELO ([phone])[facility])[address] [place] [address] MCV (RBC) [Entitic vol] 95.6 fL Normal 77.0-99.0 [facility] Comment on above: Performed By: #### L [id number] ####Manufacturing Helper: MARY SOTELO ([phone])[facility] ([facility])[address] [place] [address] Monocytes (Bld) [#/Vol] 0.4 10*3/uL Normal 0.0-0.9 [facility] Comment on above: Performed By: #### L [id number] ####Manufacturing Helper: MARY SOTELO ([phone])[facility] ([facility])[address] [place] [address] Monocytes/100 WBC (Bld) 6.2 % Normal 5.0-13.0 [facility] Comment on above: Performed By: #### L [id number] ####Manufacturing Helper: MARY SOTELO ([phone])[facility] ([facility])[address] [place] [address] NEUTROPHILS ABSOLUTE 4.3 10*3/uL Normal 1.8-7.5 [facility] Comment on above: Performed By: #### L [id number] ####Manufacturing Helper: MARY SOTELO ([phone])[facility] ([facility])[address] [place] [address] Neutrophils/100 WBC (Bld) 71.4 % Normal 38.0-82.0 [facility] Comment on above: Performed By: #### L [id number] ####Manufacturing Helper: MARY SOTELO ([phone])[facility] ([facility])[address] [place] [address] NRBC 0.0 /100 WBCs Normal 0.0-2.0 [facility] Comment on above: Performed By: #### L [id number] ####Manufacturing Helper: MARY SOTELO ([phone])[facility])[address] [place] [address] Platelet mean volume (Bld) [Entitic vol] 10.7 fL Normal 9.0-12.7 [facility] Comment on above: Performed By: #### L [id number] ####Manufacturing Helper: MARY SOTELO ([phone])[facility])[address] [place] [address] [place] Platelets (Bld) [#/Vol] 95 10*3/uL Low 140-440 [facility] Comment on above: Performed By: #### L [id number] ####Manufacturing Helper: MARY SOTELO ([phone])[facility] ([facility])[address] [place] [address] RBC (Bld) [#/Vol] 2.74 10*6/uL Low 3.80-5.20 [facility] Comment on above: Performed By: #### L [id number] ####Manufacturing Helper: MARY OSTELO ([phone])[facility] ([facility])[address] [place] [address] WBC (Bld) [#/Vol] 6.0 10*3/uL Normal 3.6-10.7 [facility] Comment on above: Performed By: #### L [id number] ####Manufacturing Helper: MARY SOTELO ([phone])[facility] ([facility])[address] [place] [address] GLUCOSE, RANDOMon 08-10-2024 Glucose [Mass/Vol] 61 mg/dL Low 70-100 [facility] Comment on above: Performed By: #### L [id number] ####Manufacturing Helper: MARY SOTELO ([phone])[facility] ([facility])[address] [place] [address] Glucose (Bld) [Mass/Vol]on 1 Glucose [Mass/Vol] 61 mg/dL Low 70 - 100 mg/dL [facility] Interpretation and review of laboratory results Abnormal [facility] IDNon 08-10-2024 IDN Normal [facility] Laboratory - Chemistry and C hemistry - challengeon 08-10-2024 Glucose [Mass/Vol] 119 mg/dL High 70 - 100 mg/dL [facility] Glucose [Mass/Vol] 109 mg/dL High 70 - 100 mg/dL [facility] Glucose [Mass/Vol] 102 mg/dL High 70 - 100 mg/dL [facility] Glucose [Mass/Vol] 96 mg/dL 70 - 100 mg/dL [facility] Glucose [Mass/Vol] 103 mg/dL High 70 - 100 mg/dL [facility] Glucose [Mass/Vol] 65 mg/dL Low 70 - 100 mg/dL [facility] Magnesium [Mass/Vol] 1.8 mg/dL 1.6 - 2 .3 mg/dL [facility] Laboratory - Hematology and Cell countson 08-10-2024 Complement C3 [Mass/Vol] 64 mg/dL Low 88 - 165 mg/dL [facility] Complement C4 [Mass/Vol] 13 mg/dL Low 14 - 44 mg/dL [facility] MAGNESIUMon 08-10-2024 Magnesium [Mass/Vol] 1.8 mg/dL Normal 1.6-2.3 [facility] Comment on above: Performed By: #### L AB113, [id number], LAB15 ####Manufacturing Helper: MARY SOTELO ([phone])[facility] ([address] No Panel Informationon 08-10 Interpretation and review of laboratory results Abnormal [facility] Interpretation and review of laboratory results Abnormal [facility] Interpretation and review of laboratory results Abnormal [facility] Interpretation and review of laboratory results Abnormal [facility] Interpretation and review of laboratory results Abnormal [facility] Interpretation and review of laboratory results Normal [facility] Interpretation and review of laboratory results Abnormal [facility] Interpretation and review of laboratory results Abnormal [facility] Interpretation and review of laboratory results Normal [facility] Nursing Noteon 08-10-2024 Nursing Note Report called to delores Syed at [facility]. This RN verified with Dr. Espana that pt is leaving with johnson catheter. Normal [facility] Nursing Note Normal [facility] PHOSPHORUSon 08-10-2024 Phosphate [Mass/Vol] 4.5 mg/dL Normal 2.5-4.5 [facility] Comment on above: Performed By: #### L AB113, [id number], LAB15 ####Manufacturing Helper: MARY SOTELO ([phone])[facility] ([facility])[address] [place] [address] [place] Phosphate [Moles/Vol]on Phosphate [Mass/Vol] 4.5 mg/dL 2.5 - 4 .5 mg/dL [facility] Progress Noteon 08-10-2024 Progress Note Normal [facility] Progress Note Normal [facility] BASIC METABOLIC PANELon Anion gap [Moles/Vol] 1 mmol/L Low 3-13 [facility] Comment on above: Performed By: #### L AB113, [id number], LAB15 ####Manufacturing Helper: MARY SOTELO ([phone])[facility] [place] [address] Calcium [Mass/Vol] 6.9 mg/dL Low 8.4-10.4 [facility] Comment on above: Performed By: #### L AB113, [id number], LAB15 ####Manufacturing Helper: MARY SOTELO ([phone])[facility] ([facility])[address] [place] [address] [place] Chloride [Moles/Vol] 105 mmol/L Normal 98-107 [facility] Comment on above: Performed By: #### L AB113, [id number], LAB15 ####Manufacturing Helper: MARY SOTELO ([phone])[facility] [place] [address] [place] CO2 [Moles/Vol] 30 mmol/L Normal 22-30 [facility] Comment on above: Performed By: #### L AB113, [id number], LAB15 ####Manufacturing Helper: MARY SOTELO ([phone])[facility] [place] [address] [place] Creatinine [Mass/Vol] 2.30 mg/dL High 0.52-1.04 [facility] Comment on above: Performed By: #### L AB113, [id number], LAB15 ####Manufacturing Helper: MARY SOTELO ([phone])[facility])[address] [place] [address] GLOMERULAR FILTRATION RATE ML/MIN/1.73 SQ M.PREDICTED 23.2 mL/min/1.73m*2 Low >60.0 [facility] Comment on above: Result Comment: Calc ulation based on the Chronic Kidney Disease Epidemiology Collaboration (CKD-EPI) equation refit without adjustment for race Performed By: #### L AB113, [id number], LAB15 ####Manufacturing Helper: MARY SOTELO ([phone])[facility])[address] [place] [address] Glucose [Mass/Vol] 69 mg/dL Low 70-100 [facility] Comment on above: Performed By: #### Doar AB113, [id number], LAB15 ####Manufacturing Helper: MARY SOTELO ([phone])[facility])[address] [place] [address] Potassium [Moles/Vol] 4.3 mmol/L Normal 3.5-5.1 [facility] Comment on above: Performed By: #### L AB113, [id number], LAB15 ####Manufacturing Helper: MARY SOTELO ([phone])[facility])[address] [place] [address] Sodium [Moles/Vol] 136 mmol/L Normal 135-145 [facility] Comment on above: Performed By: #### L AB113, [id number], LAB15 ####Manufacturing Helper: MARY SOTELO ([phone])[facility])[address] [place] [address] Urea nitrogen [Mass/Vol] 22 mg/dL High 7-17 [facility] Comment on above: Performed By: #### L AB113, [id number], LAB15 ####Manufacturing Helper: MARY SOTELO ([phone])[facility])[address] [place] [address] Basic metabolic 1998 panelon 08-09-2024 Anion gap [Moles/Vol] 1 mmol/L Low 3 - 13 mmol/L [facility] Calcium [Mass/Vol] 6.9 mg/dL Low 8.4 - 10. 4 mg/dL [facility] Chloride [Moles/Vol] 105 mmol/L 98 - 10 7 mmol/L [facility] CO2 [Moles/Vol] 30 mmol/L 22 - 30 mmol/L [facility] Creatinine [Mass/Vol] 2.30 mg/dL High 0.52 - 1.04 mg/dL [facility] GFR/1.73 sq M.predicted (S/P/Bld) [Vol rate/Area] 23.2 mL/min Low - PINF [facility] Glucose [Mass/Vol] 69 mg/dL Low 70 - 100 mg/dL [facility] Interpretation and review of laboratory results Abnormal [facility] Potassium [Moles/Vol] 4.3 mmol/L 3.5 - 5.1 mmol/L [facility] Sodium [Moles/Vol] 136 mmol/L 135 - 145 mmol/L [facility] Urea nitrogen [Mass/Vol] 22 mg/dL High 7 - 17 mg/dL [facility] CARECOORDon 08-09-2024 CARECOTROY Normal [facility] Normal [facility] CBC W Auto Differential pane l (Bld)on 08-09-2024 Basophils (Bld) [#/Vol] 0.0 10*3/uL 0.0 - 0.2 10*3/uL [facility] Basophils/100 WBC (Bld) 0.4 % 0.0 - 2.0 % [facility] Eosinophils (Bld) [#/Vol] 0.3 10*3/uL 0.0 - 0.5 10*3/uL [facility] Eosinophils/100 WBC (Bld) 4.3 % 0.0 - 6.0 % [facility] Erythrocyte distribution width (RBC) [Ratio] 17.2 % High 11.5 - 15.0 % [facility] Hematocrit (Bld) [Volume fraction] 26.6 % Low 35.0 - 47.0 % [facility] Hemoglobin (Bld) [Mass/Vol] 8.1 g/dL Low 11.7 - 16.0 g/dL [facility] Immature granulocytes (Bld) [#/Vol] 0.1 10*3/uL High NINF - 0.1 10*3/uL [facility] Immature granulocytes/100 WBC (Bld) 0.8 % 0.0 - 2.0 % [facility] Interpretation and review of laboratory results Abnormal [facility] IPF 3 [facility] Lymphocytes (Bld) [#/Vol] 1.3 10*3/uL 1.0 - 4.3 10*3/uL [facility] Lymphocytes/100 WBC (Bld) 17.0 % 15.0 - 45.0 % [facility] MCH (RBC) [Entitic mass] 28.8 pg 26.0 - 34.0 pg [facility] MCHC (RBC) [Mass/Vol] 30.5 % 30.5 - 36.0 % [facility] MCV (RBC) [Entitic vol] 94.7 fL 77.0 - 99.0 fL [facility] Monocytes (Bld) [#/Vol] 0.5 10*3/uL 0.0 - 0.9 10*3/uL [facility] Monocytes/100 WBC (Bld) 6.1 % 5.0 - 13.0 % [facility] Neutrophils (Bld) [#/Vol] 5.5 10*3/uL 1.8 - 7.5 10*3/uL [facility] Neutrophils/100 WBC (Bld) 71.4 % 38.0 - 82.0 % [facility] Nucleated RBC/100 WBC (Bld) [Ratio] 0.0 % [facility] Platelet mean volume (Bld) [Entitic vol] 10.5 fL 9.0 - 12.7 fL [facility] Platelets (Bld) [#/Vol] 108 10*3/uL Low 140 - 440 10*3/uL [facility] RBC (Bld) [#/Vol] 2.81 10*6/uL Low 3.80 - 5.2 0 10*6/uL [facility] WBC (Bld) [#/Vol] 7.7 10*3/uL 3.6 - 10.7 10*3/uL [facility] CBC WITH AUTO DIFFERENTIALon 08-09-2024 Basophils (Bld) [#/Vol] 0.0 10*3/uL Normal 0.0-0.2 [facility] Comment on above: Performed By: #### L [id number] ####Manufacturing Helper: MARY SOTELO ([phone])[place] [address] [place] Basophils/100 WBC (Bld) 0.4 % Normal 0.0-2.0 [facility] Comment on above: Performed By: #### L [id number] ####Manufacturing Helper: MARY SOTELO ([phone])[facility])[address] [place] [address] Eosinophils (Bld) [#/Vol] 0.3 10*3/uL Normal 0.0-0.5 [facility] Comment on above: Performed By: #### L [id number] ####Manufacturing Helper: MARY SOTELO ([phone])[facility])[address] [place] [address] Eosinophils/100 WBC (Bld) 4.3 % Normal 0.0-6.0 [facility] Comment on above: Performed By: #### L [id number] ####Manufacturing Helper: MARY SOTELO ([phone])[facility])[address] [place] [address] Erythrocyte distribution width (RBC) [Ratio] 17.2 % High 11.5-15.0 [facility] Comment on above: Performed By: #### L [id number] ####Manufacturing Helper: MARY SOTELO ([phone])[facility])[address] [place] [address] Hematocrit (Bld) [Volume fraction] 26.6 % Low 35.0-47.0 [facility] Comment on above: Performed By: #### L [id number] ####Manufacturing Helper: MARY SOTELO ([phone])[facility])[address] [place] [address] Hemoglobin (Bld) [Mass/Vol] 8.1 g/dL Low 11.7-16.0 [facility] Comment on above: Performed By: #### L [id number] ####Manufacturing Helper: MARY SOTELO ([phone])[facility])[address] [place] [address] IMMATURE GRANS % 0.8 % Normal 0.0-2.0 [facility] Comment on above: Performed By: #### L [id number] ####Manufacturing Helper: MARY SOTELO ([phone])[facility])[address] [place] [address] IMMATURE GRANS ABSOLUTE 0.1 10*3/uL High <0.1 [facility] Comment on above: Performed By: #### L [id number] ####Manufacturing Helper: MARY SOTELO ([phone])[facility])[address] [place] [address] IPF 3 Normal [facility] Comment on above: Performed By: #### L [id number] ####Manufacturing Helper: MARY SOTELO ([phone])[address] Lymphocytes (Bld) [#/Vol] 1.3 10*3/uL Normal 1.0-4.3 [facility] Comment on above: Performed By: #### L [id number] ####Manufacturing Helper: MARY SOTELO ([phone])[address] Lymphocytes/100 WBC (Bld) 17.0 % Normal 15.0-45.0 [facility] Comment on above: Performed By: #### L [id number] ####Manufacturing Helper: MARY SOTELO ([phone])[address] MCH (RBC) [Entitic mass] 28.8 pg Normal 26.0-34.0 [facility] Comment on above: Performed By: #### L [id number] ####Manufacturing Helper: MARY SOTELO ([phone])[address] MCHC 30.5 % Normal 30.5-36.0 [facility] Comment on above: Performed By: #### L [id number] ####Manufacturing Helper: MARY SOTELO ([phone])[facility] [address] MCV (RBC) [Entitic vol] 94.7 fL Normal 77.0-99.0 [facility] Comment on above: Performed By: #### L [id number] ####Manufacturing Helper: MARY SOTELO ([phone])[facility])[address] [place] [address] Monocytes (Bld) [#/Vol] 0.5 10*3/uL Normal 0.0-0.9 [facility] Comment on above: Performed By: #### L [id number] ####Manufacturing Helper: MARY SOTELO ([phone])[facility] ([facility])[address] [place] [address] Monocytes/100 WBC (Bld) 6.1 % Normal 5.0-13.0 [facility] Comment on above: Performed By: #### L [id number] ####Manufacturing Helper: MARY SOTELO ([phone])[facility] ([facility])[address] [place] [address] NEUTROPHILS ABSOLUTE 5.5 10*3/uL Normal 1.8-7.5 [facility] Comment on above: Performed By: #### L [id number] ####Manufacturing Helper: MARY SOTELO ([phone])[facility] ([facility])[address] [place] [address] Neutrophils/100 WBC (Bld) 71.4 % Normal 38.0-82.0 [facility] Comment on above: Performed By: #### L [id number] ####Manufacturing Helper: MARY SOTELO ([phone])[facility] ([facility])[address] [place] [address] NRBC 0.0 /100 WBCs Normal 0.0-2.0 [facility] Comment on above: Performed By: #### L [id number] ####Manufacturing Helper: MARY SOTELO ([phone])[facility] ([facility])[address] [place] [address] Platelet mean volume (Bld) [Entitic vol] 10.5 fL Normal 9.0-12.7 [facility] Comment on above: Performed By: #### L [id number] ####Manufacturing Helper: MARY SOTELO ([phone])[facility])[address] [place] [address] Platelets (Bld) [#/Vol] 108 10*3/uL Low 140-440 [facility] Comment on above: Performed By: #### L [id number] ####Manufacturing Helper: MARY SOTELO ([phone])[facility] ([facility])[address] [place] [address] RBC (Bld) [#/Vol] 2.81 10*6/uL Low 3.80-5.20 [facility] Comment on above: Performed By: #### L [id number] ####Manufacturing Helper: MARY SOTELO ([phone])[facility])[address] [place] [address] WBC (Bld) [#/Vol] 7.7 10*3/uL Normal 3.6-10.7 [facility] Comment on above: Performed By: #### L [id number] ####Manufacturing Helper: MARY SOTELO ([phone])[facility])[address] [place] [address] COMPLETE URINALYSISon 2023 BACTERIA (#/HPF) IN URINE Moderate Abnormal Negative [facility] Comment on above: Performed By: #### L [id number] ####Manufacturing Helper: MARY SOTELO ([phone])[facility])[address] [place] [address] BILIRUBIN, TOTAL PRESENCE IN URINE Negative Normal Negative [facility] Comment on above: Performed By: #### L [id number] ####Manufacturing Helper: MARY SOTELO ([phone])[facility])[address] [place] [address] Clarity (U) Extra Turbid Abnormal Clear [facility] Comment on above: Performed By: #### L [id number] ####Manufacturing Helper: MARY SOTELO ([phone])[facility] [place] [address] Color (U) Yellow Normal Lt. Yellow [facility] Comment on above: Performed By: #### L [id number] ####Manufacturing Helper: MARY SOTELO ([phone])[facility] ([facility])[address] [place] [address] Glucose (U) [Mass/Vol] 50 mg/dL Normal Normal (<70) [facility] Comment on above: Performed By: #### L [id number] ####Manufacturing Helper: MARY SOTELO ([phone])[facility] ([facility])[address] [place] [address] HEMOGLOBIN PRESENCE IN URINE >1.0 Abnormal Negative [facility] Comment on above: Performed By: #### L [id number] ####Manufacturing Helper: MARY SOTELO ([phone])[facility] ([facility])[address] [place] [address] HYALINE CASTS (#/LPF) IN URINE SEDIMENT BY MICROSCOPY Negative Normal Negative [facility] Comment on above: Performed By: #### L [id number] ####Manufacturing Helper: MARY SOTELO ([phone])[facility] ([facility])[address] [place] [address] Ketones Ql (U) Negative Normal Negative [facility] Comment on above: Performed By: #### L [id number] ####Manufacturing Helper: MARY SOETLO ([phone])[facility] ([facility])[address] [place] [address] LEUKOCYTE ESTERASE PRESENCE IN URINE BY TEST STRIP 500 Bere/uL Abnormal Negative [facility] Comment on above: Performed By: #### L [id number] ####Manufacturing Helper: MARY SOTELO ([phone])[facility])[address] [place] [address] NITRITE PRESENCE IN URINE Negative Normal Negative [facility] Comment on above: Performed By: #### L [id number] ####Manufacturing Helper: MARY SOTELO ([phone])[facility])[address] [place] [address] pH (U) 5.0 [pH] Normal 5.0-8.0 [facility] Comment on above: Performed By: #### L [id number] ####Manufacturing Helper: MARY SOTELO ([phone])[facility] ([facility])[address] [place] [address] Protein (U) [Mass/Vol] 70 mg/dL Abnormal Negative [facility] Comment on above: Performed By: #### L [id number] ####Manufacturing Helper: MARY SOTELO ([phone])[facility] ([facility])[address] [place] [address] RBC (#/HPF) IN URINE SEDIMENT >100 Abnormal 0-2 [facility] Comment on above: Performed By: #### L [id number] ####Manufacturing Helper: MARY SOTELO ([phone])[facility] ([facility])[address] [place] [address] Specific gravity (U) [Rel density] 1.007 Normal 1.005-1.030 [facility] Comment on above: Performed By: #### L [id number] ####Manufacturing Helper: MARY SOTELO ([phone])[facility] ([facility])[address] [place] [address] SQUAMOUS EPITHELIAL CELLS (#/HPF) IN URINE SEDIMENT 3-5 Normal 3-5 [facility] Comment on above: Performed By: #### L [id number] ####Manufacturing Helper: MARY SOTELO ([phone])[facility] ([facility])[address] [place] [address] UROBILINOGEN (MG/DL) IN URINE Normal Normal Normal (0-1) [facility] Comment on above: Performed By: #### L [id number] ####Manufacturing Helper: MARY SOTELO ([phone])[facility] ([facility])[address] [place] [address] WBC (LEUKOCYTE) (#/HPF) IN URINE SEDIMENT >100 Abnormal 0-5 [facility] Comment on above: Performed By: #### L [id number] ####Manufacturing Helper: MARY SOTELO ([phone])[facility] ([facility])[address] [place] [address] WBC (LEUKOCYTE) CLUMPS (#/HPF) IN URINE SEDIMENT Many Abnormal Negative [facility] Comment on above: Performed By: #### L [id number] ####Manufacturing Helper: MARY SOTELO ([phone])[facility] ([facility])[address] [place] [address] [place] YEAST (#/HPF) IN URINE Loaded Abnormal Negative [facility] Comment on above: Performed By: #### L [id number] ####Manufacturing Helper: MARY SOTELO ([phone])[facility] ([facility])[address] [place] [address] CREATININE, URINE, RANDOMon 08-09-2024 CREATININE, URINE 41.3 mg/dL Normal No Range [facility] Comment on above: Performed By: #### L [id number], [id number] ####Manufacturing Helper: MARY SOTELO ([phone])[facility] ([facility])[address] [place] [address] Creatinine (U) [Mass/Vol]on 08-09-2024 CREATININE, URINE 41.3 mg/dL No Range [facility] GLUCOSE, RANDOMon 08-09-2024 Glucose [Mass/Vol] 216 mg/dL High 70-100 [facility] Comment on above: Performed By: #### L [id number] ####Manufacturing Helper: MARY SOTELO ([phone])[facility] ([facility])[address] [place] [address] [place] Glucose (Bld) [Mass/Vol]on 1 Glucose [Mass/Vol] 216 mg/dL High 70 - 100 mg/dL [facility] Interpretation and review of laboratory results Abnormal [facility] IDNon 08-09-2024 IDN Normal [facility] IDN Normal [facility] - Chemistry and C hemistry - challengeon 08-09-2024 Glucose [Mass/Vol] 164 mg/dL High 70 - 100 mg/dL [facility] Glucose [Mass/Vol] 264 mg/dL High 70 - 100 mg/dL [facility] Glucose [Mass/Vol] 246 mg/dL High 70 - 100 mg/dL [facility] Glucose [Mass/Vol] 153 mg/dL High 70 - 100 mg/dL [facility] Glucose [Mass/Vol] 144 mg/dL High 70 - 100 mg/dL [facility] Glucose [Mass/Vol] 115 mg/dL High 70 - 100 mg/dL [facility] Glucose [Mass/Vol] mg/dL Low 70 - 100 mg/dL [facility] Glucose [Mass/Vol] 83 mg/dL 70 - 100 mg/dL [facility] Glucose [Mass/Vol] 70 mg/dL 70 - 100 mg/dL [facility] Glucose [Mass/Vol] mg/dL Low 70 - 100 mg/dL [facility] Magnesium [Mass/Vol] 1.8 mg/dL 1.6 - 2 .3 mg/dL [facility] - Urinalysison Protein (U) [Mass/Vol] 107 mg/dL High 0 - 12 mg/dL [facility] MAGNESIUMon 08-09-2024 Magnesium [Mass/Vol] 1.8 mg/dL Normal 1.6-2.3 [facility] Comment on above: Performed By: #### L [id number], [id number], LAB15 ####Manufacturing Helper: MARY SOTELO ([phone])[address] Magnesium [Mass/Vol]on 08-09 Interpretation and review of laboratory results Normal [facility] No Panel Informationon 08-09 Interpretation and review of laboratory results Abnormal [facility] Interpretation and review of laboratory results Abnormal [facility] Interpretation and review of laboratory results Abnormal [facility] Interpretation and review of laboratory results Abnormal [facility] Interpretation and review of laboratory results Abnormal [facility] Interpretation and review of laboratory results Abnormal [facility] Interpretation and review of laboratory results Abnormal [facility] Interpretation and review of laboratory results Abnormal [facility] Interpretation and review of laboratory results Normal [facility] Interpretation and review of laboratory results Normal [facility] Interpretation and review of laboratory results Abnormal [facility] Nursing Noteon 08-09-2024 Nursing Note Normal [facility] PHOSPHORUSon 08-09-2024 Phosphate [Mass/Vol] 4.1 mg/dL Normal 2.5-4.5 [facility] Comment on above: Performed By: #### L AB113, [id number], LAB15 ####Manufacturing Helper: MARY SOTELO ([phone])[facility] [place] [address] [place] PROTEIN, URINE, RANDOMon Protein (U) [Mass/Vol] 107 mg/dL High 0-12 [facility] Comment on above: Performed By: #### L [id number], [id number] ####Manufacturing Helper: MARY SOTELO ([phone])[facility] ([facility])[address] [place] [address] [place] Phosphate [Moles/Vol]on Interpretation and review of laboratory results Normal [facility] Phosphate [Mass/Vol] 4.1 mg/dL 2.5 - 4 .5 mg/dL [facility] Progress Noteon 08-09-2024 Progress Note Normal [facility] Progress Note Normal [facility] Progress Note Normal [facility] Progress [facility] Progress Note Normal [facility] URINE CULTUREon 08-09-2024 Bacteria identified Cx Nom (U) Normal [facility] Comment on above: Performed By: #### L [id number] ####Manufacturing Helper: MARY SOTELO ([phone])[facility] ([facility])[address] [place] [address] [place] Urinalysis complete panel (U )on 08-09-2024 Bacteria LM.HPF (Urine sed) [#/Area] Moderate Abnormal Negative /HPF [facility] Bilirubin Ql (U) Negative Negative mg/dL [facility] Clarity (U) Extra Turbid Abnormal Clear [facility] Color (U) Yellow Lt. Yellow [facility] Epithelial cells.squamous LM.HPF (Urine sed) [#/Area] 3-[address] [facility] Gl[facility] Ql (U) 50 mg/dL Normal (<70) [facility] Hemoglobin Ql (U) >1.0 Abnormal Negative mg/dL [facility] Hyaline casts Auto (Urine sed) [#/Area] Negative Negative /LPF [facility] Interpretation and review of laboratory results Abnormal [facility] Ketones (U) [Mass/Vol] Negative Negat pawan mg/dL [facility] Leukocyte clumps LM.HPF (Urine sed) [#/Area] Many Abnormal Negative /HPF [facility] Leukocyte esterase Test strip Ql (U) 500 Abnormal Negative Bere/uL [facility] Nitrite Ql (U) Negative Negative [facility] th pH (U) 5.0 [pH] 5.0 - 8.0 pH [facility] Protein (U) [Mass/Vol] 70 mg/dL Abnormal Negative [facility] RBC LM.HPF (Urine sed) [#/Area] /[HPF] Abnormal [facility] Specific gravity (U) [Rel density] 1.007 1.005 - 1.030 [facility] Urobilinogen (U) [Mass/Vol] Normal Normal (0-1) mg/dL [facility] WBC LM.HPF (Urine sed) [#/Area] /[HPF] Abnormal [facility] Yeast.budding LM.HPF (Urine sed) [#/Area] Loaded Abnormal Negative /HPF [facility] ALBUMINon 08-08-2024 Albumin [Mass/Vol] 2.7 g/dL Low 3.5-5.0 [facility] Comment on above: Performed By: #### L AB45, [id number], LAB15, [id number] ####Manufacturing Helper: MARY SOTELO ([phone])[facility] [place] [address] BASIC METABOLIC PANELon Anion gap [Moles/Vol] 2 mmol/L Low 3-13 [facility] Comment on above: Performed By: #### L AB45, [id number], LAB15, [id number] ####Manufacturing Helper: MARY SOTELO ([phone])[facility] ([facility])[address] [place] [address] Calcium [Mass/Vol] 6.9 mg/dL Low 8.4-10.4 [facility] Comment on above: Performed By: #### L AB45, [id number], LAB15, [id number] ####Manufacturing Helper: MARY SOTELO ([phone])[facility] ([facility])[address] [place] [address] Chloride [Moles/Vol] 100 mmol/L Normal 98-107 [facility] Comment on above: Performed By: #### L AB45, [id number], LAB15, [id number] ####Manufacturing Helper: MARY SOTELO ([phone])[facility] ([facility])[address] [place] [address] CO2 [Moles/Vol] 32 mmol/L High 22-30 [facility] Comment on above: Performed By: #### L AB45, [id number], LAB15, [id number] ####Manufacturing Helper: MARY SOTELO ([phone])[facility] ([facility])[address] [place] [address] Creatinine [Mass/Vol] 1.51 mg/dL High 0.52-1.04 [facility] Comment on above: Performed By: #### L AB45, [id number], LAB15, VDC313 ####Manufacturing Helper: MARY SOTELO ([phone])[facility] ([facility])[address] [place] [address] [place] GLOMERULAR FILTRATION RATE ML/MIN/1.73 SQ M.PREDICTED 38.4 mL/min/1.73m*2 Low >60.0 [facility] Comment on above: Result Comment: Calc ulation based on the Chronic Kidney Disease Epidemiology Collaboration (CKD-EPI) equation refit without adjustment for race Performed By: #### L AB45, [id number], LAB15, [id number] ####Manufacturing Helper: MARY SOTELO ([phone])[facility] ([facility])[address] [place] [address] [place] Glucose [Mass/Vol] 293 mg/dL High 70-100 [facility] Comment on above: Performed By: #### L AB45, [id number], LAB15, EPA321 ####Manufacturing Helper: MARY SOTELO ([phone])[facility] ([facility])[address] [place] [address] Potassium [Moles/Vol] 3.7 mmol/L Normal 3.5-5.1 [facility] Comment on above: Performed By: #### L AB45, [id number], LAB15, [id number] ####Manufacturing Helper: MARY SOTELO ([phone])[facility] [place] [address] Sodium [Moles/Vol] 134 mmol/L Low 135-145 [facility] Comment on above: Performed By: #### L AB45, [id number], LAB15, [id number] ####Manufacturing Helper: MARY SOTELO ([phone])[facility] [place] [address] Urea nitrogen [Mass/Vol] 14 mg/dL Normal 7-17 [facility] Comment on above: Performed By: #### L AB45, [id number], LAB15, KLA663 ####Manufacturing Helper: MARY SOTELO ([phone])[facility] ([facility])[address] [place] [address] Basic metabolic 1998 panelon 08-08-2024 Anion gap [Moles/Vol] 2 mmol/L Low 3 - 13 mmol/L [facility] Calcium [Mass/Vol] 6.9 mg/dL Low 8.4 - 10. 4 mg/dL [facility] Chloride [Moles/Vol] 100 mmol/L 98 - 10 7 mmol/L [facility] CO2 [Moles/Vol] 32 mmol/L High 22 - 30 mmol/L [facility] Creatinine [Mass/Vol] 1.51 mg/dL High 0.52 - 1.04 mg/dL [facility] GFR/1.73 sq M.predicted (S/P/Bld) [Vol rate/Area] 38.4 mL/min Low - PINF [facility] Glucose [Mass/Vol] 293 mg/dL High 70 - 100 mg/dL [facility] Potassium [Moles/Vol] 3.7 mmol/L 3.5 - 5.1 mmol/L [facility] Sodium [Moles/Vol] 134 mmol/L Low 135 - 145 mmol/L [facility] Urea nitrogen [Mass/Vol] 14 mg/dL 7 - 17 mg/dL [facility] CBC W Auto Differential pane l (Bld)on 08-08-2024 Basophils (Bld) [#/Vol] 0.0 10*3/uL 0.0 - 0.2 10*3/uL [facility] Basophils/100 WBC (Bld) 0.1 % 0.0 - 2.0 % [facility] Eosinophils (Bld) [#/Vol] 0.3 10*3/uL 0.0 - 0.5 10*3/uL [facility] Eosinophils/100 WBC (Bld) 4.0 % 0.0 - 6.0 % [facility] Erythrocyte distribution width (RBC) [Ratio] 17.2 % High 11.5 - 15.0 % [facility] Hematocrit (Bld) [Volume fraction] 28.9 % Low 35.0 - 47.0 % [facility] Hemoglobin (Bld) [Mass/Vol] 8.7 g/dL Low 11.7 - 16.0 g/dL [facility] Immature granulocytes (Bld) [#/Vol] 0.1 10*3/uL High NINF - 0.1 10*3/uL [facility] Immature granulocytes/100 WBC (Bld) 1.3 % 0.0 - 2.0 % [facility] Interpretation and review of laboratory results Abnormal [facility] IPF 3 [facility] Lymphocytes (Bld) [#/Vol] 0.9 10*3/uL Low 1.0 - 4.3 10*3/uL [facility] Lymphocytes/100 WBC (Bld) 11.8 % Low 15.0 - 45.0 % [facility] MCH (RBC) [Entitic mass] 28.8 pg 26.0 - 34.0 pg [facility] MCHC (RBC) [Mass/Vol] 30.1 % Low 30.5 - 36.0 % [facility] MCV (RBC) [Entitic vol] 95.7 fL 77.0 - 99.0 fL [facility] Monocytes (Bld) [#/Vol] 0.3 10*3/uL 0.0 - 0.9 10*3/uL [facility] [employer] Monocytes/100 WBC (Bld) 4.5 % Low 5.0 - 13.0 % [facility] Neutrophils (Bld) [#/Vol] 5.9 10*3/uL 1.8 - 7.5 10*3/uL [facility] Neutrophils/100 WBC (Bld) 78.3 % 38.0 - 82.0 % [facility] Nucleated RBC/100 WBC (Bld) [Ratio] 0.0 % [facility] Platelet mean volume (Bld) [Entitic vol] 10.8 fL 9.0 - 12.7 fL [facility] Platelets (Bld) [#/Vol] 118 10*3/uL Low 140 - 440 10*3/uL [facility] RBC (Bld) [#/Vol] 3.02 10*6/uL Low 3.80 - 5.2 0 10*6/uL [facility] WBC (Bld) [#/Vol] 7.6 10*3/uL 3.6 - 10.7 10*3/uL [facility] CBC WITH AUTO DIFFERENTIALon 08-08-2024 Basophils (Bld) [#/Vol] 0.0 10*3/uL Normal 0.0-0.2 [facility] Comment on above: Performed By: #### L [id number] ####Manufacturing Helper: MARY SOTELO ([phone])[address] Basophils/100 WBC (Bld) 0.1 % Normal 0.0-2.0 [facility] Comment on above: Performed By: #### L [id number] ####Manufacturing Helper: MARY SOTELO ([phone])[facility])[address] [place] [address] Eosinophils (Bld) [#/Vol] 0.3 10*3/uL Normal 0.0-0.5 [facility] Comment on above: Performed By: #### L [id number] ####Manufacturing Helper: MARY SOTELO ([phone])[facility])[address] [place] [address] Eosinophils/100 WBC (Bld) 4.0 % Normal 0.0-6.0 [facility] Comment on above: Performed By: #### L [id number] ####Manufacturing Helper: MARY SOTELO ([phone])[address] Erythrocyte distribution width (RBC) [Ratio] 17.2 % High 11.5-15.0 [facility] Comment on above: Performed By: #### L [id number] ####Manufacturing Helper: MARY SOTELO ([phone])[address] Hematocrit (Bld) [Volume fraction] 28.9 % Low 35.0-47.0 [facility] Comment on above: Performed By: #### L [id number] ####Manufacturing Helper: MARY SOTELO ([phone])[address] Hemoglobin (Bld) [Mass/Vol] 8.7 g/dL Low 11.7-16.0 [facility] Comment on above: Performed By: #### L [id number] ####Manufacturing Helper: MARY SOTELO ([phone])[address] IMMATURE GRANS % 1.3 % Normal 0.0-2.0 [facility] Comment on above: Performed By: #### L [id number] ####Manufacturing Helper: MARY SOTELO ([phone])[address] IMMATURE GRANS ABSOLUTE 0.1 10*3/uL High <0.1 [facility] Comment on above: Performed By: #### L [id number] ####Manufacturing Helper: MARY SOTELO ([phone])[address] IPF 3 Normal [facility] Comment on above: Performed By: #### L [id number] ####Manufacturing Helper: MARY SOTELO ([phone])[address] Lymphocytes (Bld) [#/Vol] 0.9 10*3/uL Low 1.0-4.3 [facility] Comment on above: Performed By: #### L [id number] ####Manufacturing Helper: MARY SOTELO ([phone])[facility])[address] [place] [address] Lymphocytes/100 WBC (Bld) 11.8 % Low 15.0-45.0 [facility] Comment on above: Performed By: #### L [id number] ####Manufacturing Helper: MARY SOTELO ([phone])[facility])[address] [place] [address] MCH (RBC) [Entitic mass] 28.8 pg Normal 26.0-34.0 [facility] Comment on above: Performed By: #### L [id number] ####Manufacturing Helper: MARY SOTELO ([phone])[facility])[address] [place] [address] MCHC 30.1 % Low 30.5-36.0 [facility] Comment on above: Performed By: #### L [id number] ####Manufacturing Helper: MARY SOTELO ([phone])[facility])[address] [place] [address] MCV (RBC) [Entitic vol] 95.7 fL Normal 77.0-99.0 [facility] Comment on above: Performed By: #### L [id number] ####Manufacturing Helper: MARY SOTELO ([phone])[facility])[address] [place] [address] Monocytes (Bld) [#/Vol] 0.3 10*3/uL Normal 0.0-0.9 [facility] Comment on above: Performed By: #### L [id number] ####Manufacturing Helper: MARY SOTELO ([phone])[facility])[address] [place] [address] Monocytes/100 WBC (Bld) 4.5 % Low 5.0-13.0 [facility] Comment on above: Performed By: #### L [id number] ####Manufacturing Helper: MARY SOTELO ([phone])[facility] ([facility])[address] [place] [address] NEUTROPHILS ABSOLUTE 5.9 10*3/uL Normal 1.8-7.5 [facility] Comment on above: Performed By: #### L [id number] ####Manufacturing Helper: MARY SOTELO ([phone])[facility] ([facility])[address] [place] [address] Neutrophils/100 WBC (Bld) 78.3 % Normal 38.0-82.0 [facility] Comment on above: Performed By: #### L [id number] ####Manufacturing Helper: MARY SOTELO ([phone])[facility] ([facility])[address] [place] [address] NRBC 0.0 /100 WBCs Normal 0.0-2.0 [facility] Comment on above: Performed By: #### L [id number] ####Manufacturing Helper: MARY SOTELO ([phone])[facility] ([facility])[address] [place] [address] Platelet mean volume (Bld) [Entitic vol] 10.8 fL Normal 9.0-12.7 [facility] Comment on above: Performed By: #### L [id number] ####Manufacturing Helper: MARY SOTELO ([phone])[facility] ([facility])[address] [place] [address] Platelets (Bld) [#/Vol] 118 10*3/uL Low 140-440 [facility] Comment on above: Performed By: #### L [id number] ####Manufacturing Helper: MARY SOTELO ([phone])[facility] ([facility])[address] [place] [address] RBC (Bld) [#/Vol] 3.02 10*6/uL Low 3.80-5.20 [facility] Comment on above: Performed By: #### L [id number] ####Manufacturing Helper: MARY SOTELO ([phone])[facility] ([facility])[address] [place] [address] WBC (Bld) [#/Vol] 7.6 10*3/uL Normal 3.6-10.7 [facility] Comment on above: Performed By: #### L [id number] ####Manufacturing Helper: MARY SOTELO ([phone])[facility] ([facility])[address] [place] [address] [place] IDNon 08-08-2024 IDN Normal [facility] IDN Normal [facility] Laboratory - Chemistry and C hemistry - challengeon 08-08-2024 Glucose [Mass/Vol] 218 mg/dL High 70 - 100 mg/dL [facility] Glucose [Mass/Vol] 245 mg/dL High 70 - 100 mg/dL [facility] Glucose [Mass/Vol] 334 mg/dL High 70 - 100 mg/dL [facility] Glucose [Mass/Vol] 314 mg/dL High 70 - 100 mg/dL [facility] Albumin [Mass/Vol] 2.7 g/dL Low 3.5 - 5.0 g/dL [facility] Magnesium [Mass/Vol] 1.7 mg/dL 1.6 - 2 .3 mg/dL [facility] MAGNESIUMon 08-08-2024 Magnesium [Mass/Vol] 1.7 mg/dL Normal 1.6-2.3 [facility] Comment on above: Performed By: #### L AB45, [id number], LAB15, [id number] ####Manufacturing Helper: MARY SOTELO ([phone])[facility] [place] [address] Magnesium [Mass/Vol]on 08-08 Interpretation and review of laboratory results Normal [facility] No Panel Informationon 08-08 Interpretation and review of laboratory results Abnormal [facility] Interpretation and review of laboratory results Abnormal [facility] Interpretation and review of laboratory results Abnormal [facility] Interpretation and review of laboratory results Abnormal [facility] Interpretation and review of laboratory results Abnormal [facility] Interpretation and review of laboratory results Abnormal [facility] PHOSPHORUSon 08-08-2024 Phosphate [Mass/Vol] 2.1 mg/dL Low 2.5-4.5 [facility] Comment on above: Performed By: #### L AB45, [id number], LAB15, [id number] ####Manufacturing Helper: MARY SOTELO ([phone])[facility] ([facility])[address] [place] [address] [place] Phosphate [Moles/Vol]on Phosphate [Mass/Vol] 2.1 mg/dL Low 2.5 - 4 .5 mg/dL [facility] Progress Noteon 08-08-2024 Progress Note Normal [facility] Progress Note Normal [facility] Progress Note [facility] XR CHEST 1 VIEWon 08-08-2024 XR CHEST 1 VIEW Normal [facility] XR Chest Single viewon 08-08 [facility] Radiology Study observation (narrative) [facility] XR Chest Single viewOrdered By: Kalia Foy on 08-08-2024 [facility] Work Phone: BASIC METABOLIC PANELon Anion gap [Moles/Vol] 1 mmol/L Low 3-13 [facility] Comment on above: Performed By: #### L AB103, [id number], LAB15 ####Manufacturing Helper: MARY SOTELO ([phone])[facility] ([facility])[address] [place] [address] [place] Calcium [Mass/Vol] 6.9 mg/dL Low 8.4-10.4 [facility] Comment on above: Performed By: #### L AB103, [id number], LAB15 ####Manufacturing Helper: MARY SOTELO ([phone])[facility] ([facility])[address] [place] [address] [place] Chloride [Moles/Vol] 102 mmol/L Normal 98-107 [facility] Comment on above: Performed By: #### L AB103, [id number], LAB15 ####Manufacturing Helper: MARY SOTELO ([phone])[facility] ([facility])[address] [place] [address] [place] CO2 [Moles/Vol] 31 mmol/L High 22-30 [facility] Comment on above: Performed By: #### L AB103, [id number], LAB15 ####Manufacturing Helper: MARY SOTELO ([phone])[facility] ([facility])[address] [place] [address] Creatinine [Mass/Vol] 2.07 mg/dL High 0.52-1.04 [facility] Comment on above: Performed By: #### L AB103, [id number], LAB15 ####Manufacturing Helper: MARY SOTELO ([phone])[facility] ([facility])[address] [place] [address] GLOMERULAR FILTRATION RATE ML/MIN/1.73 SQ M.PREDICTED 26.3 mL/min/1.73m*2 Low >60.0 [facility] Comment on above: Result Comment: Calc ulation based on the Chronic Kidney Disease Epidemiology Collaboration (CKD-EPI) equation refit without adjustment for race Performed By: #### L AB103, [id number], LAB15 ####Manufacturing Helper: MARY SOTELO ([phone])[facility] ([facility])[address] [place] [address] Glucose [Mass/Vol] 141 mg/dL High 70-100 [facility] Comment on above: Performed By: #### L AB103, [id number], LAB15 ####Manufacturing Helper: MARY SOTELO ([phone])[facility] ([facility])[address] [place] [address] Potassium [Moles/Vol] 4.2 mmol/L Normal 3.5-5.1 [facility] Comment on above: Performed By: #### L AB103, [id number], LAB15 ####Manufacturing Helper: MARY SOTELO ([phone])[facility])[address] [place] [address] Sodium [Moles/Vol] 134 mmol/L Low 135-145 [facility] Comment on above: Performed By: #### L AB103, [id number], LAB15 ####Manufacturing Helper: MARY SOTELO ([phone])[facility] ([facility])[address] [place] [address] Urea nitrogen [Mass/Vol] 23 mg/dL High 7-17 [facility] Comment on above: Performed By: #### L AB103, [id number], LAB15 ####Manufacturing Helper: MARY SOTELO ([phone])[facility] ([facility])[address] [place] [address] Basic metabolic 1998 panelon 08-07-2024 Anion gap [Moles/Vol] 1 mmol/L Low 3 - 13 mmol/L [facility] Calcium [Mass/Vol] 6.9 mg/dL Low 8.4 - 10. 4 mg/dL [facility] Chloride [Moles/Vol] 102 mmol/L 98 - 10 7 mmol/L [facility] CO2 [Moles/Vol] 31 mmol/L High 22 - 30 mmol/L [facility] Creatinine [Mass/Vol] 2.07 mg/dL High 0.52 - 1.04 mg/dL [facility] GFR/1.73 sq M.predicted (S/P/Bld) [Vol rate/Area] 26.3 mL/min Low - PINF [facility] Glucose [Mass/Vol] 141 mg/dL High 70 - 100 mg/dL [facility] Interpretation and review of laboratory results Abnormal [facility] Potassium [Moles/Vol] 4.2 mmol/L 3.5 - 5.1 mmol/L [facility] Sodium [Moles/Vol] 134 mmol/L Low 135 - 145 mmol/L [facility] Urea nitrogen [Mass/Vol] 23 mg/dL High 7 - 17 mg/dL [facility] CBC W Auto Differential pane l (Bld)Ordered By: Nicole Lakhani on 08-07-2024 Basophils (Bld) [#/Vol] 0.0 10*3/uL 0.0 - 0.2 10*3/uL [facility] Basophils/100 WBC (Bld) 0.1 % 0.0 - 2.0 % [facility] Eosinophils (Bld) [#/Vol] 0.5 10*3/uL 0.0 - 0.5 10*3/uL [facility] Eosinophils/100 WBC (Bld) 5.9 % 0.0 - 6.0 % [facility] Erythrocyte distribution width (RBC) [Ratio] 17.4 % High 11.5 - 15.0 % [facility] Hematocrit (Bld) [Volume fraction] 26.7 % Low 35.0 - 47.0 % [facility] Hemoglobin (Bld) [Mass/Vol] 8.1 g/dL Low 11.7 - 16.0 g/dL [facility] Immature granulocytes (Bld) [#/Vol] 0.1 10*3/uL High NINF - 0.1 10*3/uL [facility] Immature granulocytes/100 WBC (Bld) 1.0 % 0.0 - 2.0 % [facility] Interpretation and review of laboratory results Abnormal [facility] IPF [address] [facility] Lymphocytes (Bld) [#/Vol] 1.4 10*3/uL 1.0 - 4.3 10*3/uL [facility] Lymphocytes/100 WBC (Bld) 17.9 % 15.0 - 45.0 % [facility] MCH (RBC) [Entitic mass] 28.6 pg 26.0 - 34.0 pg [facility] MCHC (RBC) [Mass/Vol] 30.3 % Low 30.5 - 36.0 % [facility] MCV (RBC) [Entitic vol] 94.3 fL 77.0 - 99.[address] [facility] Monocytes (Bld) [#/Vol] 0.6 10*3/uL 0.0 - 0.9 10*3/uL [facility] Monocytes/100 WBC (Bld) 7.2 % 5.0 - 13.0 % [facility] Neutrophils (Bld) [#/Vol] 5.5 10*3/uL 1.8 - 7.5 10*3/uL [facility] Neutrophils/100 WBC (Bld) 67.9 % 38.0 - 82.0 % [facility] Nucleated RBC/100 WBC (Bld) [Ratio] 0.0 % [facility] Platelet mean volume (Bld) [Entitic vol] 9.8 fL 9.0 - 12.[address] [facility] Platelets (Bld) [#/Vol] 128 10*3/uL Low 140 - 440 10*3/uL [facility] RBC (Bld) [#/Vol] 2.83 10*6/uL Low 3.80 - 5.2 0 10*6/uL [facility] WBC (Bld) [#/Vol] 8.0 10*3/uL 3.6 - 10.7 10*3/uL [facility] CBC WITH AUTO DIFFERENTIALon 08-07-2024 Basophils (Bld) [#/Vol] 0.0 10*3/uL Normal 0.0-0.2 [facility] Comment on above: Performed By: #### L [id number] ####Manufacturing Helper: MARY SOTELO ([phone])[facility])[address] [place] [address] Basophils/100 WBC (Bld) 0.1 % Normal 0.0-2.0 [facility] Comment on above: Performed By: #### L [id number] ####Manufacturing Helper: MARY SOTELO ([phone])[facility])[address] [place] [address] Eosinophils (Bld) [#/Vol] 0.5 10*3/uL Normal 0.0-0.5 [facility] Comment on above: Performed By: #### L [id number] ####Manufacturing Helper: MARY SOTELO ([phone])[facility])[address] [place] [address] Eosinophils/100 WBC (Bld) 5.9 % Normal 0.0-6.0 [facility] Comment on above: Performed By: #### L [id number] ####Manufacturing Helper: MARY SOTELO ([phone])[facility])[address] [place] [address] Erythrocyte distribution width (RBC) [Ratio] 17.4 % High 11.5-15.0 [facility] Comment on above: Performed By: #### L [id number] ####Manufacturing Helper: MARY SOTELO ([phone])[facility])[address] [place] [address] Hematocrit (Bld) [Volume fraction] 26.7 % Low 35.0-47.0 [facility] Comment on above: Performed By: #### L [id number] ####Manufacturing Helper: MARY SOTELO ([phone])[facility])[address] [place] [address] Hemoglobin (Bld) [Mass/Vol] 8.1 g/dL Low 11.7-16.0 [facility] Comment on above: Performed By: #### L [id number] ####Manufacturing Helper: MARY SOTELO ([phone])[facility] ([facility])[address] [place] [address] IMMATURE GRANS % 1.0 % Normal 0.0-2.0 [facility] Comment on above: Performed By: #### L [id number] ####Manufacturing Helper: MARY SOTELO ([phone])[facility])[address] [place] [address] IMMATURE GRANS ABSOLUTE 0.1 10*3/uL High <0.1 [facility] Comment on above: Performed By: #### L [id number] ####Manufacturing Helper: MARY SOTELO ([phone])[facility] ([facility])[address] [place] [address] [place] IPF 2 Normal [facility] Comment on above: Performed By: #### L [id number] ####Manufacturing Helper: MARY SOTELO ([phone])[facility])[address] [place] [address] Lymphocytes (Bld) [#/Vol] 1.4 10*3/uL Normal 1.0-4.3 [facility] Comment on above: Performed By: #### L [id number] ####Manufacturing Helper: MARY SOTELO ([phone])[facility] ([facility])[address] [place] [address] Lymphocytes/100 WBC (Bld) 17.9 % Normal 15.0-45.0 [facility] Comment on above: Performed By: #### L [id number] ####Manufacturing Helper: MARY SOTELO ([phone])[facility])[address] [place] [address] MCH (RBC) [Entitic mass] 28.6 pg Normal 26.0-34.0 [facility] Comment on above: Performed By: #### L [id number] ####Manufacturing Helper: MARY SOTELO ([phone])[facility])[address] [place] [address] MCHC 30.3 % Low 30.5-36.0 [facility] Comment on above: Performed By: #### L [id number] ####Manufacturing Helper: MARY SOTELO ([phone])[facility])[address] [place] [address] MCV (RBC) [Entitic vol] 94.3 fL Normal 77.0-99.0 [facility] Comment on above: Performed By: #### L [id number] ####Manufacturing Helper: MARY SOTELO ([phone])[facility])[address] [place] [address] Monocytes (Bld) [#/Vol] 0.6 10*3/uL Normal 0.0-0.9 [facility] Comment on above: Performed By: #### L [id number] ####Manufacturing Helper: MARY SOTELO ([phone])[facility])[address] [place] [address] Monocytes/100 WBC (Bld) 7.2 % Normal 5.0-13.0 [facility] Comment on above: Performed By: #### L [id number] ####Manufacturing Helper: MARY SOTELO ([phone])[facility])[address] [place] [address] NEUTROPHILS ABSOLUTE 5.5 10*3/uL Normal 1.8-7.5 [facility] Comment on above: Performed By: #### L [id number] ####Manufacturing Helper: MARY SOTELO ([phone])[facility])[address] [place] [address] Neutrophils/100 WBC (Bld) 67.9 % Normal 38.0-82.0 [facility] Comment on above: Performed By: #### L [id number] ####Manufacturing Helper: MARY SOTELO ([phone])[facility] ([facility])[address] [place] [address] NRBC 0.0 /100 WBCs Normal 0.0-2.0 [facility] Comment on above: Performed By: #### L [id number] ####Manufacturing Helper: MARY SOTELO ([phone])[facility] ([facility])[address] [place] [address] Platelet mean volume (Bld) [Entitic vol] 9.8 fL Normal 9.0-12.7 [facility] Comment on above: Performed By: #### L [id number] ####Manufacturing Helper: MARY SOTELO ([phone])[facility] ([facility])[address] [place] [address] Platelets (Bld) [#/Vol] 128 10*3/uL Low 140-440 [facility] Comment on above: Performed By: #### L [id number] ####Manufacturing Helper: MARY SOTELO ([phone])[facility] ([facility])[address] [place] [address] RBC (Bld) [#/Vol] 2.83 10*6/uL Low 3.80-5.20 [facility] Comment on above: Performed By: #### L [id number] ####Manufacturing Helper: MARY SOTELO ([phone])[facility] ([facility])[address] [place] [address] WBC (Bld) [#/Vol] 8.0 10*3/uL Normal 3.6-10.7 [facility] Comment on above: Performed By: #### L [id number] ####Manufacturing Helper: MARY SOTELO ([phone])[facility])[address] [place] [address] IDNon 08-07-2024 IDN Normal [facility] IDN Normal [facility] Laboratory - Chemistry and C hemistry - challengeon 08-07-2024 Glucose [Mass/Vol] 176 mg/dL High 70 - 100 mg/dL [facility] Glucose [Mass/Vol] 283 mg/dL High 70 - 100 mg/dL [facility] Glucose [Mass/Vol] 249 mg/dL High 70 - 100 mg/dL [facility] Glucose [Mass/Vol] 179 mg/dL High 70 - 100 mg/dL [facility] Magnesium [Mass/Vol] 1.9 mg/dL 1.6 - 2 .3 mg/dL [facility] MAGNESIUMon 08-07-2024 Magnesium [Mass/Vol] 1.9 mg/dL Normal 1.6-2.3 [facility] Comment on above: Performed By: #### L AB103, [id number], LAB15 ####Manufacturing Helper: MARY SOTELO ([phone])[address] No Panel Informationon 08-07 Interpretation and review of laboratory results Abnormal [facility] Interpretation and review of laboratory results Abnormal [facility] Interpretation and review of laboratory results Abnormal [facility] Interpretation and review of laboratory results Abnormal [facility] Interpretation and review of laboratory results Normal [facility] Nursing Noteon 08-07-2024 Nursing Note Normal [facility] PHOSPHORUSon 08-07-2024 Phosphate [Mass/Vol] 3.7 mg/dL Normal 2.5-4.5 [facility] Comment on above: Performed By: #### L AB103, [id number], LAB15 ####Manufacturing Helper: MARY SOTELO ([phone])[facility] ([facility])[address] [place] [address] Phosphate [Moles/Vol]on Phosphate [Mass/Vol] 3.7 mg/dL 2.5 - 4 .5 mg/dL [facility] Progress Noteon 08-07-2024 Progress Note [facility] Progress Note [facility] RESPIRATORY PATHOGENS PANEL BY PCRon 08-07-2024 RESPIRATORY PATHOGENS PANEL BY PCR Normal [facility] Comment on above: Performed By: #### L [id number] ####Manufacturing Helper: MARY SOTELO ([phone])[facility] ([facility])[address] [place] [address] Respiratory pathogens DNA an d RNA panel MARISA+non-probe (Nph)on 08-07-2024 Adenovirus Not detected Not Detected [facility] B. pertussis DNA MARISA+probe Ql (Unsp spec) Not detected Not Detected [facility] Bordetella parapertussis Not detected Not Detected [facility] Chlamydia pneumoniae Not detected Not Detected [facility] Coronavirus 229E Not detected Not Detected [facility] Coronavirus HKU1 Not detected Not Detected [facility] Coronavirus NL63 Not detected Not Detected [facility] Coronavirus OC43 Not detected Not Detected [facility] FLUAV RNA MARISA+non-probe Ql (Nph) Not detected Not Detected [facility] FLUBV RNA MARISA+non-probe Ql (Nph) Not detected Not Detected [facility] Human Metapneumovirus Not detected Not Detected [facility] Human Rhinovirus/Enterovirus Not detected Not Detected [facility] Interpretation and review of laboratory results Normal [facility] Mycoplasma pneumoniae Not detected Not Detected [facility] Parainfluenza 1 Not detected Not Detected [facility] Parainfluenza 2 Not detected Not Detected [facility] Parainfluenza 3 Not detected Not Detected [facility] Parainfluenza 4 Not detected Not Detected [facility] Respiratory Syncytial Virus Not detected Not Detected [facility] SARS-CoV-2 (COVID-19) RNA MARISA+non-probe Ql (Nph) Not detected Not Detected [facility] BASIC METABOLIC PANELon 10-0 Anion gap [Moles/Vol] 2 mmol/L Low 3-13 [facility] Comment on above: Performed By: #### L AB103, LAB15, [id number] ####Manufacturing Helper: MARY SOTELO ([phone])[facility] ([facility])[address] [place] [address] Calcium [Mass/Vol] 7.4 mg/dL Low 8.4-10.4 [facility] Comment on above: Performed By: #### L AB103, LAB15, [id number] ####Manufacturing Helper: MARY SOTELO ([phone])[facility] ([facility])[address] [place] [address] Chloride [Moles/Vol] 99 mmol/L Normal 98-107 [facility] Comment on above: Performed By: #### L AB103, LAB15, [id number] ####Manufacturing Helper: MARY SOTELO ([phone])[facility])[address] [place] [address] CO2 [Moles/Vol] 32 mmol/L High 22-30 [facility] Comment on above: Performed By: #### L AB103, LAB15, [id number] ####Manufacturing Helper: MARY SOTELO ([phone])[facility])[address] [place] [address] Creatinine [Mass/Vol] 1.40 mg/dL High 0.52-1.04 [facility] Comment on above: Performed By: #### Dora AB103, LAB15, [id number] ####Manufacturing Helper: MARY SOTELO ([phone])[facility])[address] [place] [address] GLOMERULAR FILTRATION RATE ML/MIN/1.73 SQ M.PREDICTED 42.1 mL/min/1.73m*2 Low >60.0 [facility] Comment on above: Result Comment: Calc ulation based on the Chronic Kidney Disease Epidemiology Collaboration (CKD-EPI) equation refit without adjustment for race Performed By: #### L AB103, LAB15, [id number] ####Manufacturing Helper: MARY SOTELO ([phone])[facility] ([facility])[address] [place] [address] Glucose [Mass/Vol] 184 mg/dL High 70-100 [facility] Comment on above: Performed By: #### L AB103, LAB15, [id number] ####Manufacturing Helper: MARY SOTELO ([phone])[facility])[address] [place] [address] Potassium [Moles/Vol] 3.1 mmol/L Low 3.5-5.1 [facility] Comment on above: Performed By: #### L AB103, LAB15, [id number] ####Manufacturing Helper: MARY SOTELO ([phone])[facility] ([facility])[address] [place] [address] Sodium [Moles/Vol] 133 mmol/L Low 135-145 [facility] Comment on above: Performed By: #### L AB103, LAB15, [id number] ####Manufacturing Helper: MARY SOTELO ([phone])[facility] ([facility])[address] [place] [address] Urea nitrogen [Mass/Vol] 16 mg/dL Normal 7-17 [facility] Comment on above: Performed By: #### L [id number], LAB15, [id number] ####Manufacturing Helper: MARY SOTELO ([phone])[facility] ([facility])[address] [place] [address] BLOOD TYPE AND SCREEN GELon 08-06-2024 ABO GROUPING O Normal [facility] Comment on above: Performed By: #### L [id number] ####Manufacturing Helper: MARY SOTELO ([phone])[facility] ([facility])[address] [place] [address] RH TYPE IN BLOOD Positive Normal [facility] Comment on above: Performed By: #### L [id number] ####Manufacturing Helper: MARY SOTELO ([phone])[facility] ([facility])[address] [place] [address] Basic metabolic 1998 panelon 08-06-2024 Anion gap [Moles/Vol] 2 mmol/L Low 3 - 13 mmol/L [facility] Calcium [Mass/Vol] 7.4 mg/dL Low 8.4 - 10. 4 mg/dL [facility] Chloride [Moles/Vol] 99 mmol/L 98 - 10 7 mmol/L [facility] CO2 [Moles/Vol] 32 mmol/L High 22 - 30 mmol/L [facility] Creatinine [Mass/Vol] 1.40 mg/dL High 0.52 - 1.04 mg/dL [facility] GFR/1.73 sq M.predicted (S/P/Bld) [Vol rate/Area] 42.1 mL/min Low - PINF [facility] Glucose [Mass/Vol] 184 mg/dL High 70 - 100 mg/dL [facility] Interpretation and review of laboratory results Abnormal [facility] Potassium [Moles/Vol] 3.1 mmol/L Low 3.5 - 5.1 mmol/L [facility] Sodium [Moles/Vol] 133 mmol/L Low 135 - 145 mmol/L [facility] Urea nitrogen [Mass/Vol] 16 mg/dL 7 - 17 mg/dL [facility] Blood type and Crossmatch pa eunice (Bld)on 08-06-2024 ABO group Nom (Bld) O [facility] Blood group antibody screen GEL Ql Negative [facility] D Ag Ql (RBC) Positive [facility] CARECOORDon 08-06-2024 CARECOORD Per nephro - UMA. Ho pe to recover . Line is tunneled . Nephrology updated on plans to work on out pt and placement . Normal [facility] Normal [facility] [place] Normal [facility] [place] Normal [facility] Normal [facility] CBC W Auto Differential pane l (Bld)on 08-06-2024 Basophils (Bld) [#/Vol] 0.0 10*3/uL 0.0 - 0.2 10*3/uL [facility] Basophils/100 WBC (Bld) 0.2 % 0.0 - 2.0 % [facility] Eosinophils (Bld) [#/Vol] 0.4 10*3/uL 0.0 - 0.5 10*3/uL [facility] Eosinophils/100 WBC (Bld) 6.6 % High 0.0 - 6.0 % [facility] Erythrocyte distribution width (RBC) [Ratio] 17.8 % High 11.5 - 15.0 % [facility] Hematocrit (Bld) [Volume fraction] 21.6 % Low 35.0 - 47.0 % [facility] Hemoglobin (Bld) [Mass/Vol] 6.6 g/dL Critically low 11.7 - 16.0 g/dL [facility] Immature granulocytes (Bld) [#/Vol] 0.1 10*3/uL High NINF - 0.1 10*3/uL [facility] [employer] Immature granulocytes/100 WBC (Bld) 0.8 % 0.0 - 2.0 % [facility] Interpretation and review of laboratory results Abnormal [facility] IPF 3 [facility] Lymphocytes (Bld) [#/Vol] 1.2 10*3/uL 1.0 - 4.3 10*3/uL [facility] Lymphocytes/100 WBC (Bld) 17.9 % 15.0 - 45.0 % [facility] MCH (RBC) [Entitic mass] 28.4 pg 26.0 - 34.0 pg [facility] MCHC (RBC) [Mass/Vol] 30.6 % 30.5 - 36.0 % [facility] MCV (RBC) [Entitic vol] 93.1 fL 77.0 - 99.0 fL [facility] Monocytes (Bld) [#/Vol] 0.5 10*3/uL 0.0 - 0.9 10*3/uL [facility] Monocytes/100 WBC (Bld) 7.2 % 5.0 - 13.0 % [facility] Neutrophils (Bld) [#/Vol] 4.4 10*3/uL 1.8 - 7.5 10*3/uL [facility] Neutrophils/100 WBC (Bld) 67.3 % 38.0 - 82.0 % [facility] Nucleated RBC/100 WBC (Bld) [Ratio] 0.0 % [facility] Platelet mean volume (Bld) [Entitic vol] 10.6 fL 9.0 - 12.7 fL [facility] Platelets (Bld) [#/Vol] 120 10*3/uL Low 140 - 440 10*3/uL [facility] RBC (Bld) [#/Vol] 2.32 10*6/uL Low 3.80 - 5.2 0 10*6/uL [facility] WBC (Bld) [#/Vol] 6.5 10*3/uL 3.6 - 10.7 10*3/uL [facility] CBC WITH AUTO DIFFERENTIALon 08-06-2024 Basophils (Bld) [#/Vol] 0.0 10*3/uL Normal 0.0-0.2 [facility] Comment on above: Performed By: #### L [id number] ####Manufacturing Helper: MARY SOTELO ([phone])[facility])[address] [place] [address] Basophils/100 WBC (Bld) 0.2 % Normal 0.0-2.0 [facility] Comment on above: Performed By: #### L [id number] ####Manufacturing Helper: MARY SOTELO ([phone])[facility])[address] [place] [address] Eosinophils (Bld) [#/Vol] 0.4 10*3/uL Normal 0.0-0.5 [facility] Comment on above: Performed By: #### L [id number] ####Manufacturing Helper: MARY SOTELO ([phone])[facility])[address] [place] [address] Eosinophils/100 WBC (Bld) 6.6 % High 0.0-6.0 [facility] Comment on above: Performed By: #### L [id number] ####Manufacturing Helper: MARY SOTELO ([phone])[facility] ([facility])[address] [place] [address] Erythrocyte distribution width (RBC) [Ratio] 17.8 % High 11.5-15.0 [facility] Comment on above: Performed By: #### L [id number] ####Manufacturing Helper: MARY SOTELO ([phone])[facility])[address] [place] [address] Hematocrit (Bld) [Volume fraction] 21.6 % Low 35.0-47.0 [facility] Comment on above: Performed By: #### L [id number] ####Manufacturing Helper: MARY SOTELO ([phone])[facility])[address] [place] [address] Hemoglobin (Bld) [Mass/Vol] 6.6 g/dL Critically low 11.7-16.0 [facility] Comment on above: Performed By: #### L [id number] ####Manufacturing Helper: MARY SOTELO ([phone])[facility])[address] [place] [address] IMMATURE GRANS % 0.8 % Normal 0.0-2.0 [facility] Comment on above: Performed By: #### L [id number] ####Manufacturing Helper: MARY SOTELO ([phone])[facility])[address] [place] [address] IMMATURE GRANS ABSOLUTE 0.1 10*3/uL High <0.1 [facility] Comment on above: Performed By: #### L [id number] ####Manufacturing Helper: MARY SOTELO ([phone])[facility])[address] [place] [address] IPF 3 Normal [facility] Comment on above: Performed By: #### L [id number] ####Manufacturing Helper: MARY SOTELO ([phone])[address] Lymphocytes (Bld) [#/Vol] 1.2 10*3/uL Normal 1.0-4.3 [facility] Comment on above: Performed By: #### L [id number] ####Manufacturing Helper: MARY SOTELO ([phone])[address] Lymphocytes/100 WBC (Bld) 17.9 % Normal 15.0-45.0 [facility] Comment on above: Performed By: #### L [id number] ####Manufacturing Helper: MARY SOTELO ([phone])[facility])[address] [place] [address] MCH (RBC) [Entitic mass] 28.4 pg Normal 26.0-34.0 [facility] Comment on above: Performed By: #### L [id number] ####Manufacturing Helper: MARY SOTELO ([phone])[address] MCHC 30.6 % Normal 30.5-36.0 [facility] Comment on above: Performed By: #### L [id number] ####Manufacturing Helper: MARY [phone])[facility] ([facility])[address] [place] [address] MCV (RBC) [Entitic vol] 93.1 fL Normal 77.0-99.0 [facility] Comment on above: Performed By: #### L [id number] ####Manufacturing Helper: MARY SOTELO ([phone])[facility] ([facility])[address] [place] [address] Monocytes (Bld) [#/Vol] 0.5 10*3/uL Normal 0.0-0.9 [facility] Comment on above: Performed By: #### L [id number] ####Manufacturing Helper: MARY SOTELO ([phone])[facility] ([facility])[address] [place] [address] Monocytes/100 WBC (Bld) 7.2 % Normal 5.0-13.0 [facility] Comment on above: Performed By: #### L [id number] ####Manufacturing Helper: MARY SOTELO ([phone])[facility] ([facility])[address] [place] [address] NEUTROPHILS ABSOLUTE 4.4 10*3/uL Normal 1.8-7.5 [facility] Comment on above: Performed By: #### L [id number] ####Manufacturing Helper: MARY SOTELO ([phone])[facility] ([facility])[address] [place] [address] Neutrophils/100 WBC (Bld) 67.3 % Normal 38.0-82.0 [facility] Comment on above: Performed By: #### L [id number] ####Manufacturing Helper: MARY SOTELO ([phone])[facility] ([facility])[address] [place] [address] NRBC 0.0 /100 WBCs Normal 0.0-2.0 [facility] Comment on above: Performed By: #### L [id number] ####Manufacturing Helper: MARY SOTELO ([phone])[facility] ([facility])[address] [place] [address] Platelet mean volume (Bld) [Entitic vol] 10.6 fL Normal 9.0-12.7 [facility] Comment on above: Performed By: #### L [id number] ####Manufacturing Helper: MARY SOTELO ([phone])[facility])[address] [place] [address] Platelets (Bld) [#/Vol] 120 10*3/uL Low 140-440 [facility] Comment on above: Performed By: #### L [id number] ####Manufacturing Helper: MARY SOTELO ([phone])[facility])[address] [place] [address] RBC (Bld) [#/Vol] 2.32 10*6/uL Low 3.80-5.20 [facility] Comment on above: Performed By: #### L [id number] ####Manufacturing Helper: MARY SOTELO ([phone])[facility])[address] [place] [address] WBC (Bld) [#/Vol] 6.5 10*3/uL Normal 3.6-10.7 [facility] Comment on above: Performed By: #### L [id number] ####Manufacturing Helper: MARY SOTELO ([phone])[address] HEMOGLOBIN AND HEMATOCRIT, B [facility] 08-06-2024 Hematocrit (Bld) [Volume fraction] 25.2 % Low 35.0-47.0 [facility] Comment on above: Order Comment: Recom mend 1 hour post transfusion Performed By: #### L [id number] ####Manufacturing Helper: MARY SOTELO ([phone])[facility])[address] [place] [address] Hemoglobin (Bld) [Mass/Vol] 7.9 g/dL Low 11.7-16.0 [facility] Comment on above: Order Comment: Recom mend 1 hour post transfusion Performed By: #### L [id number] ####Manufacturing Helper: MARY [phone])[facility] ([facility])[address] [place] [address] [place] Hemoglobin (Bld) [Mass/Vol]o n 08-06-2024 Hematocrit (Bld) [Volume fraction] 25.2 % Low 35.0 - 47.0 % [facility] Interpretation and review of laboratory results Abnormal [facility] IDNon 08-06-2024 IDN The patient is Moderately Stable - Low risk of patient condition declining or worsening The patient's goals for the shift include The clinical goals for the shift include Normal [facility] IDN Normal [facility] IDN Normal [facility] Laboratory - Chemistry and C hemistry - challengeon 08-06-2024 Glucose [Mass/Vol] 271 mg/dL High 70 - 100 mg/dL [facility] Glucose [Mass/Vol] 305 mg/dL High 70 - 100 mg/dL [facility] Glucose [Mass/Vol] 333 mg/dL High 70 - 100 mg/dL [facility] Glucose [Mass/Vol] 199 mg/dL High 70 - 100 mg/dL [facility] Magnesium [Mass/Vol] 1.9 mg/dL 1.6 - 2 .3 mg/dL [facility] Laboratory - Hematology and Cell countson 08-06-2024 Hemoglobin (Bld) [Mass/Vol] 7.9 g/dL Low 11.7 - 16.0 g/dL [facility] MAGNESIUMon 08-06-2024 Magnesium [Mass/Vol] 1.9 mg/dL Normal 1.6-2.3 [facility] Comment on above: Performed By: #### L AB103, LAB15, [id number] ####Manufacturing Helper: MARY SOTELO ([phone])[facility] ([facility])[address] [place] [address] [place] Magnesium [Mass/Vol]on 08-06 Interpretation and review of laboratory results Normal [facility] No Panel Informationon 08-06 Interpretation and review of laboratory results Abnormal [facility] Interpretation and review of laboratory results Abnormal [facility] Interpretation and review of laboratory results Abnormal [facility] Interpretation and review of laboratory results Abnormal [facility] Blood Expiration Date S [facility] Crossmatch interpretation COMP [facility] Dispense Status Transfused [facility] Product Blood Type 5100 [facility] PRODUCT CODE [id number] [facility] ABO O [facility] Number [id number] [facility] alth Unit RH Positive [facility] Volume 300 mL [facility] Nursing Noteon 08-06-2024 Nursing Note Patient bladder scanned for 113 ml. Patient states she does not need to void. Message sent to Dr Jarrett Normal [facility] Nursing Note Central line dressin g changed, patient tolerated well Normal [facility] Nursing Note Johnson removed per orders, patient tolerated well Normal [facility] PHOSPHORUSon 08-06-2024 Phosphate [Mass/Vol] 2.2 mg/dL Low 2.5-4.5 [facility] Comment on above: Performed By: #### L AB103, LAB15, [id number] ####Manufacturing Helper: MARY SOTELO ([phone])[facility])[address] [place] [address] Phosphate [Moles/Vol]on Interpretation and review of laboratory results Abnormal [facility] Phosphate [Mass/Vol] 2.2 mg/dL Low 2.5 - 4 .5 mg/dL [facility] Progress Noteon 08-06-2024 Progress Note Normal [facility] Progress Note Normal [facility] Progress Note Normal [facility] Progress Note OCCUPATIONAL THERAPY [facility] Name/MRN: Sandy Deng ([id number]) Date: 08/06/2024 Hold OT this a.m.; HgB 6.6 with order to transfuse. Will follow and treat as appropriate. GUILLERMO Taylor Normal [facility] Progress Note Normal [facility] BASIC METABOLIC PANELon Anion gap [Moles/Vol] 0 mmol/L Low 3-13 [facility] Comment on above: Performed By: #### L AB103, [id number], LAB15 ####Manufacturing Helper: MARY SOTELO ([phone])[facility] ([facility])[address] [place] [address] Calcium [Mass/Vol] 6.7 mg/dL Low 8.4-10.4 [facility] Comment on above: Performed By: #### L AB103, [id number], LAB15 ####Manufacturing Helper: MARY SOTELO ([phone])[facility] [place] [address] Chloride [Moles/Vol] 105 mmol/L Normal 98-107 [facility] Comment on above: Performed By: #### L AB103, [id number], LAB15 ####Manufacturing Helper: MARY SOTELO ([phone])[facility] [place] [address] CO2 [Moles/Vol] 26 mmol/L Normal 22-30 [facility] Comment on above: Performed By: #### L AB103, MQH107, LAB15 ####Manufacturing Helper: MARY SOTELO ([phone])[facility] [place] [address] Creatinine [Mass/Vol] 2.56 mg/dL High 0.52-1.04 [facility] Comment on above: Performed By: #### L AB103, [id number], LAB15 ####Manufacturing Helper: MARY SOTELO ([phone])[facility] [place] [address] [place] GLOMERULAR FILTRATION RATE ML/MIN/1.73 SQ M.PREDICTED 20.4 mL/min/1.73m*2 Low >60.0 [facility] Comment on above: Result Comment: Calc ulation based on the Chronic Kidney Disease Epidemiology Collaboration (CKD-EPI) equation refit without adjustment for race Performed By: #### L AB103, [id number], LAB15 ####Manufacturing Helper: MARY SOTELO ([phone])[facility] ([facility])[address] [place] [address] [place] Glucose [Mass/Vol] 151 mg/dL High 70-100 [facility] Comment on above: Performed By: #### L AB103, [id number], LAB15 ####Manufacturing Helper: MARY SOTELO ([phone])[facility] ([facility])[address] [place] [address] Potassium [Moles/Vol] 4.0 mmol/L Normal 3.5-5.1 [facility] Comment on above: Performed By: #### L AB103, [id number], LAB15 ####Manufacturing Helper: MARY SOTELO ([phone])[facility] ([facility])[address] [place] [address] Sodium [Moles/Vol] 132 mmol/L Low 135-145 [facility] Comment on above: Performed By: #### L AB103, [id number], LAB15 ####Manufacturing Helper: MARY SOTELO ([phone])[facility] ([facility])[address] [place] [address] Urea nitrogen [Mass/Vol] 35 mg/dL High 7-17 [facility] Comment on above: Performed By: #### L AB103, [id number], LAB15 ####Manufacturing Helper: MARY SOTELO ([phone])[facility] [place] [address] Basic metabolic 1998 panelon 08-05-2024 Anion gap [Moles/Vol] 0 mmol/L Low 3 - 13 mmol/L [facility] Calcium [Mass/Vol] 6.7 mg/dL Low 8.4 - 10. 4 mg/dL [facility] Chloride [Moles/Vol] 105 mmol/L 98 - 10 7 mmol/L [facility] CO2 [Moles/Vol] 26 mmol/L 22 - 30 mmol/L [facility] Creatinine [Mass/Vol] 2.56 mg/dL High 0.52 - 1.04 mg/dL [facility] GFR/1.73 sq M.predicted (S/P/Bld) [Vol rate/Area] 20.4 mL/min Low - PINF [facility] Glucose [Mass/Vol] 151 mg/dL High 70 - 100 mg/dL [facility] Interpretation and review of laboratory results Abnormal [facility] Potassium [Moles/Vol] 4.0 mmol/L 3.5 - 5.1 mmol/L [facility] Sodium [Moles/Vol] 132 mmol/L Low 135 - 145 mmol/L [facility] Urea nitrogen [Mass/Vol] 35 mg/dL High 7 - 17 mg/dL [facility] CARECOORDon 08-05-2024 [facility] requested PT/OT t o see today via see today tool to start auth. Normal [facility] CBC W Auto Differential pane l (Bld)on 08-05-2024 Basophils (Bld) [#/Vol] 0.0 10*3/uL 0.0 - 0.2 10*3/uL [facility] Basophils/100 WBC (Bld) 0.0 % 0.0 - 2.0 % [facility] Eosinophils (Bld) [#/Vol] 0.0 10*3/uL 0.0 - 0.5 10*3/uL [facility] Eosinophils/100 WBC (Bld) 0.5 % 0.0 - 6.0 % [facility] Erythrocyte distribution width (RBC) [Ratio] 17.7 % High 11.5 - 15.0 % [facility] Hematocrit (Bld) [Volume fraction] 23.6 % Low 35.0 - 47.0 % [facility] Hemoglobin (Bld) [Mass/Vol] 7.4 g/dL Low 11.7 - 16.0 g/dL [facility] Immature granulocytes (Bld) [#/Vol] 0.1 10*3/uL High NINF - 0.1 10*3/uL [facility] Immature granulocytes/100 WBC (Bld) 0.7 % 0.0 - 2.0 % [facility] Interpretation and review of laboratory results Abnormal [facility] Lymphocytes (Bld) [#/Vol] 0.7 10*3/uL Low 1.0 - 4.3 10*3/uL [facility] Lymphocytes/100 WBC (Bld) 9.8 % Low 15.0 - 45.0 % [facility] MCH (RBC) [Entitic mass] 28.4 pg 26.0 - 34.0 pg [facility] MCHC (RBC) [Mass/Vol] 31.4 % 30.5 - 36.0 % [facility] MCV (RBC) [Entitic vol] 90.4 fL 77.0 - 99.[address] [facility] Monocytes (Bld) [#/Vol] 0.3 10*3/uL 0.0 - 0.9 10*3/uL [facility] Monocytes/100 WBC (Bld) 4.2 % Low 5.0 - 13.0 % [facility] Neutrophils (Bld) [#/Vol] 6.3 10*3/uL 1.8 - 7.5 10*3/uL [facility] Neutrophils/100 WBC (Bld) 84.8 % High 38.0 - 82.0 % [facility] Nucleated RBC/100 WBC (Bld) [Ratio] 0.0 % [facility] Platelet mean volume (Bld) [Entitic vol] 10.0 fL 9.0 - 12.7 fL [facility] Platelets (Bld) [#/Vol] 168 10*3/uL 140 - 440 10*3/uL [facility] RBC (Bld) [#/Vol] 2.61 10*6/uL Low 3.80 - 5.2 0 10*6/uL [facility] WBC (Bld) [#/Vol] 7.4 10*3/uL 3.6 - 10.7 10*3/uL [facility] CBC WITH AUTO DIFFERENTIALon 08-05-2024 Basophils (Bld) [#/Vol] 0.0 10*3/uL Normal 0.0-0.2 [facility] Comment on above: Performed By: #### L [id number] ####Manufacturing Helper: MARY [phone])[address] Basophils/100 WBC (Bld) 0.0 % Normal 0.0-2.0 [facility] Comment on above: Performed By: #### L [id number] ####Manufacturing Helper: MARY [phone])[address] Eosinophils (Bld) [#/Vol] 0.0 10*3/uL Normal 0.0-0.5 [facility] Comment on above: Performed By: #### L [id number] ####Manufacturing Helper: MARY [phone])[facility])[address] [place] [address] Eosinophils/100 WBC (Bld) 0.5 % Normal 0.0-6.0 [facility] Comment on above: Performed By: #### L [id number] ####Manufacturing Helper: MARY SOTELO ([phone])[facility])[address] [place] [address] Erythrocyte distribution width (RBC) [Ratio] 17.7 % High 11.5-15.0 [facility] Comment on above: Performed By: #### L [id number] ####Manufacturing Helper: MARY SOTELO ([phone])[facility])[address] [place] [address] Hematocrit (Bld) [Volume fraction] 23.6 % Low 35.0-47.0 [facility] Comment on above: Performed By: #### L [id number] ####Manufacturing Helper: MARY SOTELO ([phone])[facility])[address] [place] [address] Hemoglobin (Bld) [Mass/Vol] 7.4 g/dL Low 11.7-16.0 [facility] Comment on above: Performed By: #### L [id number] ####Manufacturing Helper: MARY SOTELO ([phone])[facility])[address] [place] [address] IMMATURE GRANS % 0.7 % Normal 0.0-2.0 [facility] Comment on above: Performed By: #### L [id number] ####Manufacturing Helper: MARY SOTELO ([phone])[facility])[address] [place] [address] IMMATURE GRANS ABSOLUTE 0.1 10*3/uL High <0.1 [facility] Comment on above: Performed By: #### L [id number] ####Manufacturing Helper: MARY SOTELO ([phone])[facility])[address] [place] [address] Lymphocytes (Bld) [#/Vol] 0.7 10*3/uL Low 1.0-4.3 [facility] Comment on above: Performed By: #### L [id number] ####Manufacturing Helper: MARY SOTELO ([phone])[facility])[address] [place] [address] Lymphocytes/100 WBC (Bld) 9.8 % Low 15.0-45.0 [facility] Comment on above: Performed By: #### L [id number] ####Manufacturing Helper: MARY SOTELO ([phone])[facility])[address] [place] [address] MCH (RBC) [Entitic mass] 28.4 pg Normal 26.0-34.0 [facility] Comment on above: Performed By: #### L [id number] ####Manufacturing Helper: MARY SOTELO ([phone])[facility])[address] [place] [address] MCHC 31.4 % Normal 30.5-36.0 [facility] Comment on above: Performed By: #### L [id number] ####Manufacturing Helper: MARY SOTELO ([phone])[facility])[address] [place] [address] MCV (RBC) [Entitic vol] 90.4 fL Normal 77.0-99.0 [facility] Comment on above: Performed By: #### L [id number] ####Manufacturing Helper: MARY SOTELO ([phone])[facility])[address] [place] [address] Monocytes (Bld) [#/Vol] 0.3 10*3/uL Normal 0.0-0.9 [facility] Comment on above: Performed By: #### L [id number] ####Manufacturing Helper: MARY SOTELO ([phone])[facility])[address] [place] [address] Monocytes/100 WBC (Bld) 4.2 % Low 5.0-13.0 [facility] Comment on above: Performed By: #### L [id number] ####Manufacturing Helper: MARY SOTELO ([phone])[facility] ([facility])[address] [place] [address] NEUTROPHILS ABSOLUTE 6.3 10*3/uL Normal 1.8-7.5 [facility] Comment on above: Performed By: #### L [id number] ####Manufacturing Helper: MARY SOTELO ([phone])[facility] ([facility])[address] [place] [address] Neutrophils/100 WBC (Bld) 84.8 % High 38.0-82.0 [facility] Comment on above: Performed By: #### L [id number] ####Manufacturing Helper: MARY SOTELO ([phone])[facility] ([facility])[address] [place] [address] NRBC 0.0 /100 WBCs Normal 0.0-2.0 [facility] Comment on above: Performed By: #### L [id number] ####Manufacturing Helper: MARY SOTELO ([phone])[facility] ([facility])[address] [place] [address] Platelet mean volume (Bld) [Entitic vol] 10.0 fL Normal 9.0-12.7 [facility] Comment on above: Performed By: #### L [id number] ####Manufacturing Helper: MARY SOTELO ([phone])[facility] ([facility])[address] [place] [address] [place] Platelets (Bld) [#/Vol] 168 10*3/uL Normal 140-440 [facility] Comment on above: Performed By: #### L [id number] ####Manufacturing Helper: MARY SOTELO ([phone])[facility] ([facility])[address] [place] [address] RBC (Bld) [#/Vol] 2.61 10*6/uL Low 3.80-5.20 [facility] Comment on above: Performed By: #### L [id number] ####Manufacturing Helper: MARY SOTELO ([phone])[facility] ([facility])[address] [place] [address] WBC (Bld) [#/Vol] 7.4 10*3/uL Normal 3.6-10.7 [facility] Comment on above: Performed By: #### L [id number] ####Manufacturing Helper: MARY SOTELO ([phone])[facility] ([facility])[address] [place] [address] LACTIC ACID WITH REFLEXon Lactate [Moles/Vol] 0.5 mmol/L Low 0.7-2.0 [facility] Comment on above: Performed By: #### L [id number] ####Manufacturing Helper: MARY SOTELO ([phone])[facility] ([facility])[address] [place] [address] Laboratory - Chemistry and C hemistry - challengeon 08-05-2024 Glucose [Mass/Vol] 341 mg/dL High 70 - 100 mg/dL [facility] Glucose [Mass/Vol] 303 mg/dL High 70 - 100 mg/dL [facility] Procalcitonin [Mass/Vol] 0.16 ng/mL High 0.00 - 0.09 ng/mL [facility] Glucose [Mass/Vol] 285 mg/dL High 70 - 100 mg/dL [facility] Glucose [Mass/Vol] 139 mg/dL High 70 - 100 mg/dL [facility] Magnesium [Mass/Vol] 2.2 mg/dL 1.6 - 2 .3 mg/dL [facility] Lactate [Moles/Vol] 0.5 mmol/L Low 0.7 - 2. 0 mmol/L [facility] MAGNESIUMon 08-05-2024 Magnesium [Mass/Vol] 2.2 mg/dL Normal 1.6-2.3 [facility] Comment on above: Performed By: #### L [id number], [id number], LAB15 ####Manufacturing Helper: MARY SOTELO ([phone])[facility] ([facility])[address] [place] [address] No Panel Informationon 08-05 Interpretation and review of laboratory results Abnormal [facility] Interpretation and review of laboratory results Abnormal [facility] Interpretation and review of laboratory results Abnormal [facility] Interpretation and review of laboratory results Abnormal [facility] Interpretation and review of laboratory results Normal [facility] Interpretation and review of laboratory results Abnormal [facility] Nursing Noteon 08-05-2024 Nursing Note Normal [facility] PHOSPHORUSon 08-05-2024 Phosphate [Mass/Vol] 3.6 mg/dL Normal 2.5-4.5 [facility] Comment on above: Performed By: #### L [id number], [id number], LAB15 ####Manufacturing Helper: MARY SOTELO ([phone])[facility])[address] [place] [address] PROCALCITONIN TESTon 024 PROCALCITONIN 0.16 ng/mL High 0.00-0.[address] [facility] Comment on above: Result Comment: BINA R COMMENTS:PCT <0.50 = Low risk of severe sepsis and/or septic shock.PCT >2.00 = High risk of severe sepsis and/or septic shock. Performed By: #### L [id number] ####Manufacturing Helper: MARY SOTELO ([phone])[address] Phosphate [Moles/Vol]on Phosphate [Mass/Vol] 3.6 mg/dL 2.5 - 4 .5 mg/dL [facility] Procalcitonin [Mass/Vol]on Interpretation and review of laboratory results Abnormal [facility] Progress Noteon 08-05-2024 Progress Note Normal [facility] Progress Note Normal [facility] Progress Note Normal [facility] Progress Note Normal [facility] Progress Note Normal [facility] Progress Note Normal [facility] XR CHEST 1 VIEWon 08-05-2024 XR CHEST 1 VIEW Normal [facility] XR Chest Single viewon 08-05 [facility] Radiology Study observation (narrative) [facility] BASIC METABOLIC PANELon 10-0 Anion gap [Moles/Vol] 4 mmol/L Normal 3-13 [facility] Comment on above: Performed By: #### L [id number], [id number], LAB15 ####Manufacturing Helper: MARY SOTELO ([phone])[facility] [place] [address] Calcium [Mass/Vol] 7.0 mg/dL Low 8.4-10.4 [facility] Comment on above: Performed By: #### L [id number], [id number], LAB15 ####Manufacturing Helper: MARY SOTELO ([phone])[facility] ([facility])[address] [place] [address] Chloride [Moles/Vol] 104 mmol/L Normal 98-107 [facility] Comment on above: Performed By: #### L [id number], [id number], LAB15 ####Manufacturing Helper: MARY SOTELO ([phone])[facility] [place] [address] CO2 [Moles/Vol] 26 mmol/L Normal 22-30 [facility] Comment on above: Performed By: #### L AB113, [id number], LAB15 ####Manufacturing Helper: MARY SOTELO ([phone])[facility] [place] [address] Creatinine [Mass/Vol] 1.88 mg/dL High 0.52-1.04 [facility] Comment on above: Performed By: #### L AB113, [id number], LAB15 ####Manufacturing Helper: MARY SOTELO ([phone])[facility] ([facility])[address] [place] [address] [place] GLOMERULAR FILTRATION RATE ML/MIN/1.73 SQ M.PREDICTED 29.6 mL/min/1.73m*2 Low >60.0 [facility] Comment on above: Result Comment: Calc ulation based on the Chronic Kidney Disease Epidemiology Collaboration (CKD-EPI) equation refit without adjustment for race Performed By: #### L AB113, [id number], LAB15 ####Manufacturing Helper: MARY SOTELO ([phone])[facility] [place] [address] Glucose [Mass/Vol] 119 mg/dL High 70-100 [facility] Comment on above: Performed By: #### L AB113, [id number], LAB15 ####Manufacturing Helper: MARY SOTELO ([phone])[facility] ([facility])[address] [place] [address] Potassium [Moles/Vol] 3.6 mmol/L Normal 3.5-5.1 [facility] Comment on above: Performed By: #### L AB113, [id number], LAB15 ####Manufacturing Helper: MARY SOTELO ([phone])[facility] ([facility])[address] [place] [address] Sodium [Moles/Vol] 134 mmol/L Low 135-145 [facility] Comment on above: Performed By: #### Dora AB113, [id number], LAB15 ####Manufacturing Helper: MARY SOTELO ([phone])[facility] [place] [address] Urea nitrogen [Mass/Vol] 24 mg/dL High 7-17 [facility] Comment on above: Performed By: #### L AB113, [id number], LAB15 ####Manufacturing Helper: MARY SOTELO ([phone])[facility] ([facility])[address] [place] [address] Basic metabolic 1998 panelon 08-04-2024 Anion gap [Moles/Vol] 4 mmol/L 3 - 13 mmol/L [facility] Calcium [Mass/Vol] 7.0 mg/dL Low 8.4 - 10. 4 mg/dL [facility] Chloride [Moles/Vol] 104 mmol/L 98 - 10 7 mmol/L [facility] CO2 [Moles/Vol] 26 mmol/L 22 - 30 mmol/L [facility] Creatinine [Mass/Vol] 1.88 mg/dL High 0.52 - 1.04 mg/dL [facility] GFR/1.73 sq M.predicted (S/P/Bld) [Vol rate/Area] 29.6 mL/min Low - PINF [facility] Glucose [Mass/Vol] 119 mg/dL High 70 - 100 mg/dL [facility] Interpretation and review of laboratory results Abnormal [facility] Potassium [Moles/Vol] 3.6 mmol/L 3.5 - 5.1 mmol/L [facility] Sodium [Moles/Vol] 134 mmol/L Low 135 - 145 mmol/L [facility] Urea nitrogen [Mass/Vol] 24 mg/dL High 7 - 17 mg/dL [facility] CALCIUM, IONIZEDon CALCIUM IONIZED 3.70 mg/dL Low 4.30-5.20 [facility] Comment on above: Performed By: #### L [id number] ####Manufacturing Helper: MARY SOTELO ([phone])[facility] ([facility])[address] [place] [address] PH, IONIZED CALCIUM 7.45 Normal 7.31-7.46 [facility] Comment on above: Performed By: #### L AB54 ####Manufacturing Helper: MARY SOTELO ([phone])[facility] ([facility])[address] [place] [address] CARECOORDon 08-04-2024 CARECOORD Normal [facility] CBC W Auto Differential pane l (Bld)on 08-04-2024 Basophils (Bld) [#/Vol] 0.0 10*3/uL 0.0 - 0.2 10*3/uL [facility] Basophils/100 WBC (Bld) 0.1 % 0.0 - 2.0 % [facility] Eosinophils (Bld) [#/Vol] 0.1 10*3/uL 0.0 - 0.5 10*3/uL [facility] Eosinophils/100 WBC (Bld) 0.7 % 0.0 - 6.0 % [facility] Erythrocyte distribution width (RBC) [Ratio] 17.4 % High 11.5 - 15.0 % [facility] Hematocrit (Bld) [Volume fraction] 26.5 % Low 35.0 - 47.0 % [facility] Hemoglobin (Bld) [Mass/Vol] 8.3 g/dL Low 11.7 - 16.0 g/dL [facility] Immature granulocytes (Bld) [#/Vol] 0.1 10*3/uL High NINF - 0.1 10*3/uL [facility] [employer] Immature granulocytes/100 WBC (Bld) 1.1 % 0.0 - 2.0 % [facility] Interpretation and review of laboratory results Abnormal [facility] Lymphocytes (Bld) [#/Vol] 0.7 10*3/uL Low 1.0 - 4.3 10*3/uL [facility] Lymphocytes/100 WBC (Bld) 8.4 % Low 15.0 - 45.0 % [facility] MCH (RBC) [Entitic mass] 28.5 pg 26.0 - 34.0 pg [facility] MCHC (RBC) [Mass/Vol] 31.3 % 30.5 - 36.0 % [facility] MCV (RBC) [Entitic vol] 91.1 fL 77.0 - 99.0 fL [facility] Monocytes (Bld) [#/Vol] 0.3 10*3/uL 0.0 - 0.9 10*3/uL [facility] Monocytes/100 WBC (Bld) 3.6 % Low 5.0 - 13.0 % [facility] Neutrophils (Bld) [#/Vol] 7.4 10*3/uL 1.8 - 7.5 10*3/uL [facility] Neutrophils/100 WBC (Bld) 86.1 % High 38.0 - 82.0 % [facility] Nucleated RBC/100 WBC (Bld) [Ratio] 0.0 % [facility] Platelet mean volume (Bld) [Entitic vol] 9.1 fL 9.0 - 12.7 fL [facility] Platelets (Bld) [#/Vol] 178 10*3/uL 140 - 440 10*3/uL [facility] RBC (Bld) [#/Vol] 2.91 10*6/uL Low 3.80 - 5.2 0 10*6/uL [facility] WBC (Bld) [#/Vol] 8.5 10*3/uL 3.6 - 10.7 10*3/uL [facility] CBC WITH AUTO DIFFERENTIALon 08-04-2024 Basophils (Bld) [#/Vol] 0.0 10*3/uL Normal 0.0-0.2 [facility] Comment on above: Performed By: #### L [id number] ####Manufacturing Helper: MARY SOTELO ([phone])[facility])[address] [place] [address] Basophils/100 WBC (Bld) 0.1 % Normal 0.0-2.0 [facility] Comment on above: Performed By: #### L [id number] ####Manufacturing Helper: MARY SOTELO ([phone])[facility])[address] [place] [address] Eosinophils (Bld) [#/Vol] 0.1 10*3/uL Normal 0.0-0.5 [facility] Comment on above: Performed By: #### L [id number] ####Manufacturing Helper: MARY SOTELO ([phone])[address] Eosinophils/100 WBC (Bld) 0.7 % Normal 0.0-6.0 [facility] Comment on above: Performed By: #### L [id number] ####Manufacturing Helper: MARY SOTELO ([phone])[address] Erythrocyte distribution width (RBC) [Ratio] 17.4 % High 11.5-15.0 [facility] Comment on above: Performed By: #### L [id number] ####Manufacturing Helper: MARY SOTELO ([phone])[address] Hematocrit (Bld) [Volume fraction] 26.5 % Low 35.0-47.0 [facility] Comment on above: Performed By: #### L [id number] ####Manufacturing Helper: MARY SOTELO ([phone])[address] Hemoglobin (Bld) [Mass/Vol] 8.3 g/dL Low 11.7-16.0 [facility] Comment on above: Performed By: #### L [id number] ####Manufacturing Helper: MARY SOTELO ([phone])[facility] ([facility])[address] [place] [address] IMMATURE GRANS % 1.1 % Normal 0.0-2.0 [facility] Comment on above: Performed By: #### L [id number] ####Manufacturing Helper: MARY SOTELO ([phone])[facility])[address] [place] [address] IMMATURE GRANS ABSOLUTE 0.1 10*3/uL High <0.1 [facility] Comment on above: Performed By: #### L [id number] ####Manufacturing Helper: MARY SOTELO ([phone])[facility])[address] [place] [address] Lymphocytes (Bld) [#/Vol] 0.7 10*3/uL Low 1.0-4.3 [facility] Comment on above: Performed By: #### L [id number] ####Manufacturing Helper: MARY SOTELO ([phone])[facility])[address] [place] [address] Lymphocytes/100 WBC (Bld) 8.4 % Low 15.0-45.0 [facility] Comment on above: Performed By: #### L [id number] ####Manufacturing Helper: MARY SOTELO ([phone])[facility])[address] [place] [address] MCH (RBC) [Entitic mass] 28.5 pg Normal 26.0-34.0 [facility] Comment on above: Performed By: #### L [id number] ####Manufacturing Helper: MARY SOTELO ([phone])[facility])[address] [place] [address] MCHC 31.3 % Normal 30.5-36.0 [facility] Comment on above: Performed By: #### L [id number] ####Manufacturing Helper: MARY SOTELO ([phone])[facility])[address] [place] [address] [place] MCV (RBC) [Entitic vol] 91.1 fL Normal 77.0-99.0 [facility] Comment on above: Performed By: #### L [id number] ####Manufacturing Helper: MARY SOTELO ([phone])[facility])[address] [place] [address] Monocytes (Bld) [#/Vol] 0.3 10*3/uL Normal 0.0-0.9 [facility] Comment on above: Performed By: #### L [id number] ####Manufacturing Helper: MARY SOTELO ([phone])[facility] ([facility])[address] [place] [address] Monocytes/100 WBC (Bld) 3.6 % Low 5.0-13.0 [facility] Comment on above: Performed By: #### L [id number] ####Manufacturing Helper: MARY SOTELO ([phone])[facility])[address] [place] [address] NEUTROPHILS ABSOLUTE 7.4 10*3/uL Normal 1.8-7.5 [facility] Comment on above: Performed By: #### L [id number] ####Manufacturing Helper: MARY SOTELO ([phone])[facility])[address] [place] [address] Neutrophils/100 WBC (Bld) 86.1 % High 38.0-82.0 [facility] Comment on above: Performed By: #### L [id number] ####Manufacturing Helper: MARY SOTELO ([phone])[facility])[address] [place] [address] NRBC 0.0 /100 WBCs Normal 0.0-2.0 [facility] Comment on above: Performed By: #### L [id number] ####Manufacturing Helper: MARY SOTELO ([phone])[facility])[address] [place] [address] Platelet mean volume (Bld) [Entitic vol] 9.1 fL Normal 9.0-12.7 [facility] Comment on above: Performed By: #### L [id number] ####Manufacturing Helper: MARY SOTELO ([phone])[facility] ([facility])[address] [place] [address] Platelets (Bld) [#/Vol] 178 10*3/uL Normal 140-440 [facility] Comment on above: Performed By: #### L [id number] ####Manufacturing Helper: MARY SOTELO ([phone])[facility] ([facility])[address] [place] [address] RBC (Bld) [#/Vol] 2.91 10*6/uL Low 3.80-5.20 [facility] Comment on above: Performed By: #### L [id number] ####Manufacturing Helper: MARY SOTELO ([phone])[facility] ([facility])[address] [place] [address] WBC (Bld) [#/Vol] 8.5 10*3/uL Normal 3.6-10.7 [facility] Comment on above: Performed By: #### L [id number] ####Manufacturing Helper: MARY SOTELO ([phone])[facility] ([facility])[address] [place] [address] Calcium.ionized [Moles/Vol]o n 08-04-2024 Calcium.ionized (Bld) [Moles/Vol] 3.70 mg/dL Low 4.30 - 5.20 mg/dL [facility] Interpretation and review of laboratory results Abnormal [facility] PH, IONIZED CALCIUM 7.45 7.31 - 7.46 [facility] IDNon 08-04-2024 IDN Normal [facility] Laboratory - Chemistry and C hemistry - challengeon 08-04-2024 Glucose [Mass/Vol] 167 mg/dL High 70 - 100 mg/dL [facility] Glucose [Mass/Vol] 181 mg/dL High 70 - 100 mg/dL [facility] Glucose [Mass/Vol] 191 mg/dL High 70 - 100 mg/dL [facility] Glucose [Mass/Vol] 113 mg/dL High 70 - 100 mg/dL [facility] Magnesium [Mass/Vol] 2.0 mg/dL 1.6 - 2 .3 mg/dL [facility] MAGNESIUMon 08-04-2024 Magnesium [Mass/Vol] 2.0 mg/dL Normal 1.6-2.3 [facility] Comment on above: Performed By: #### L [id number], [id number], LAB15 ####Manufacturing Helper: MARY SOTELO ([phone])[facility] ([facility])[address] [place] [address] No Panel Informationon 08-04 Interpretation and review of laboratory results Abnormal [facility] Interpretation and review of laboratory results Abnormal [facility] Interpretation and review of laboratory results Abnormal [facility] Interpretation and review of laboratory results Abnormal [facility] Interpretation and review of laboratory results Normal [facility] Nursing Noteon 08-04-2024 Nursing Note Normal [facility] PHOSPHORUSon 08-04-2024 Phosphate [Mass/Vol] 3.4 mg/dL Normal 2.5-4.5 [facility] Comment on above: Performed By: #### L AB113, [id number], LAB15 ####Manufacturing Helper: MARY SOTELO ([phone])[facility] ([facility])[address] [place] [address] Phosphate [Moles/Vol]on Phosphate [Mass/Vol] 3.4 mg/dL 2.5 - 4 .5 mg/dL [facility] Progress Noteon 08-04-2024 Progress Note Normal [facility] Progress Note Normal [facility] Progress Note Normal [facility] Progress Note Normal [facility] RF videography Hypopharynx a nd Esophagus Views for swallowing function W speech and W barium contrast Harman 08-04-2024 [facility] Radiology Study observation (narrative) [facility] RF videography Hypopharynx a nd Esophagus Views for swallowing function W speech and W barium contrast POOrdered By: Mynor Pulido on 08-04-2024 [facility] Work Phone: BASIC METABOLIC PANELon Anion gap [Moles/Vol] 1 mmol/L Low 3-13 [facility] Comment on above: Performed By: #### Dora AB103, LAB15, [id number] ####Manufacturing Helper: MARY SOTELO ([phone])[facility] [place] [address] Calcium [Mass/Vol] 7.4 mg/dL Low 8.4-10.4 [facility] Comment on above: Performed By: #### Dora AB103, LAB15, [id number] ####Manufacturing Helper: MARY SOTELO ([phone])[facility] [place] [address] Chloride [Moles/Vol] 110 mmol/L High 98-107 [facility] Comment on above: Performed By: #### Dora SONG, LAB15, [id number] ####Manufacturing Helper: MARY SOTELO ([phone])[facility] [place] [address] CO2 [Moles/Vol] 26 mmol/L Normal 22-30 [facility] Comment on above: Performed By: #### Dora SONG, LAB15, [id number] ####Manufacturing Helper: MARY SOTELO ([phone])[facility] ([facility])[address] [place] [address] Creatinine [Mass/Vol] 2.29 mg/dL High 0.52-1.04 [facility] Comment on above: Performed By: #### Dora SONG, LAB15, [id number] ####Manufacturing Helper: MARY SOTELO ([phone])[facility] [place] [address] [place] GLOMERULAR FILTRATION RATE ML/MIN/1.73 SQ M.PREDICTED 23.3 mL/min/1.73m*2 Low >60.0 [facility] Comment on above: Result Comment: Calc ulation based on the Chronic Kidney Disease Epidemiology Collaboration (CKD-EPI) equation refit without adjustment for race Performed By: #### Dora AB103, LAB15, [id number] ####Manufacturing Helper: MARY SOTELO ([phone])[facility] [place] [address] Glucose [Mass/Vol] 87 mg/dL Normal 70-100 [facility] Comment on above: Performed By: #### L AB103, LAB15, [id number] ####Manufacturing Helper: MARY SOTELO ([phone])[facility] ([facility])[address] [place] [address] Potassium [Moles/Vol] 4.3 mmol/L Normal 3.5-5.1 [facility] Comment on above: Performed By: #### L AB103, LAB15, [id number] ####Manufacturing Helper: MARY SOTELO ([phone])[facility] ([facility])[address] [place] [address] Sodium [Moles/Vol] 137 mmol/L Normal 135-145 [facility] Comment on above: Performed By: #### L AB103, LAB15, [id number] ####Manufacturing Helper: MARY SOTELO ([phone])[facility] ([facility])[address] [place] [address] Urea nitrogen [Mass/Vol] 28 mg/dL High 7-17 [facility] Comment on above: Performed By: #### L AB103, LAB15, [id number] ####Manufacturing Helper: MARY SOTELO ([phone])[facility] ([facility])[address] [place] [address] Basic metabolic 1998 panelon 08-03-2024 Anion gap [Moles/Vol] 1 mmol/L Low 3 - 13 mmol/L [facility] Calcium [Mass/Vol] 7.4 mg/dL Low 8.4 - 10. 4 mg/dL [facility] Chloride [Moles/Vol] 110 mmol/L High 98 - 10 7 mmol/L [facility] CO2 [Moles/Vol] 26 mmol/L 22 - 30 mmol/L [facility] Creatinine [Mass/Vol] 2.29 mg/dL High 0.52 - 1.04 mg/dL [facility] GFR/1.73 sq M.predicted (S/P/Bld) [Vol rate/Area] 23.3 mL/min Low - PINF [facility] Glucose [Mass/Vol] 87 mg/dL 70 - 100 mg/dL [facility] Potassium [Moles/Vol] 4.3 mmol/L 3.5 - 5.1 mmol/L [facility] Sodium [Moles/Vol] 137 mmol/L 135 - 145 mmol/L [facility] Urea nitrogen [Mass/Vol] 28 mg/dL High 7 - 17 mg/dL [facility] CALCIUM, IONIZEDon CALCIUM IONIZED 4.20 mg/dL Low 4.30-5.20 [facility] Comment on above: Performed By: #### L [id number] ####Manufacturing Helper: MARY SOTELO ([phone])[facility])[address] [place] [address] PH, IONIZED CALCIUM 7.29 Low 7.31-7.46 [facility] Comment on above: Performed By: #### L [id number] ####Manufacturing Helper: MARY SOTELO ([phone])[facility] ([facility])[address] [place] [address] CARECOORDon 08-03-2024 CARECOORD Normal [facility] CBC W Auto Differential pane l (Bld)Ordered By: Irais Carranza on 08-03-2024 Basophils (Bld) [#/Vol] 0.0 10*3/uL 0.0 - 0.2 10*3/uL [facility] Basophils/100 WBC (Bld) 0.2 % 0.0 - 2.0 % [facility] Eosinophils (Bld) [#/Vol] 0.1 10*3/uL 0.0 - 0.5 10*3/uL [facility] Eosinophils/100 WBC (Bld) 0.5 % 0.0 - 6.0 % [facility] Erythrocyte distribution width (RBC) [Ratio] 18.1 % High 11.5 - 15.0 % [facility] Hematocrit (Bld) [Volume fraction] 28.6 % Low 35.0 - 47.0 % [facility] Hemoglobin (Bld) [Mass/Vol] 8.5 g/dL Low 11.7 - 16.0 g/dL [facility] Immature granulocytes (Bld) [#/Vol] 0.1 10*3/uL High NINF - 0.1 10*3/uL [facility] [employer] Immature granulocytes/100 WBC (Bld) 1.1 % 0.0 - 2.0 % [facility] Interpretation and review of laboratory results Abnormal [facility] [employer] Lymphocytes (Bld) [#/Vol] 0.7 10*3/uL Low 1.0 - 4.3 10*3/uL [facility] Lymphocytes/100 WBC (Bld) 6.5 % Low 15.0 - 45.0 % [facility] MCH (RBC) [Entitic mass] 27.4 pg 26.0 - 34.0 pg [facility] MCHC (RBC) [Mass/Vol] 29.7 % Low 30.5 - 36.0 % [facility] MCV (RBC) [Entitic vol] 92.3 fL 77.0 - 99.0 fL [facility] Monocytes (Bld) [#/Vol] 0.3 10*3/uL 0.0 - 0.9 10*3/uL [facility] Monocytes/100 WBC (Bld) 3.0 % Low 5.0 - 13.0 % [facility] Neutrophils (Bld) [#/Vol] 9.6 10*3/uL High 1.8 - 7.5 10*3/uL [facility] Neutrophils/100 WBC (Bld) 88.7 % High 38.0 - 82.0 % [facility] Nucleated RBC/100 WBC (Bld) [Ratio] 0.0 % [facility] Platelet mean volume (Bld) [Entitic vol] 9.9 fL 9.0 - 12.7 fL [facility] Platelets (Bld) [#/Vol] 210 10*3/uL 140 - 440 10*3/uL [facility] RBC (Bld) [#/Vol] 3.10 10*6/uL Low 3.80 - 5.2 0 10*6/uL [facility] WBC (Bld) [#/Vol] 10.8 10*3/uL High 3.6 - 10.7 10*3/uL [facility] CBC WITH AUTO DIFFERENTIALon 08-03-2024 Basophils (Bld) [#/Vol] 0.0 10*3/uL Normal 0.0-0.2 [facility] Comment on above: Performed By: #### L [id number] ####Manufacturing Helper: MARY SOTELO ([phone])[facility])[address] [place] [address] Basophils/100 WBC (Bld) 0.2 % Normal 0.0-2.0 [facility] Comment on above: Performed By: #### L [id number] ####Manufacturing Helper: MARY SOTELO ([phone])[facility])[address] [place] [address] Eosinophils (Bld) [#/Vol] 0.1 10*3/uL Normal 0.0-0.5 [facility] Comment on above: Performed By: #### L [id number] ####Manufacturing Helper: MARY SOTELO ([phone])[address] Eosinophils/100 WBC (Bld) 0.5 % Normal 0.0-6.0 [facility] Comment on above: Performed By: #### L [id number] ####Manufacturing Helper: MARY SOTELO ([phone])[facility])[address] [place] [address] Erythrocyte distribution width (RBC) [Ratio] 18.1 % High 11.5-15.0 [facility] Comment on above: Performed By: #### L [id number] ####Manufacturing Helper: MARY SOTELO ([phone])[address] Hematocrit (Bld) [Volume fraction] 28.6 % Low 35.0-47.0 [facility] Comment on above: Performed By: #### L [id number] ####Manufacturing Helper: MARY SOTELO ([phone])[address] Hemoglobin (Bld) [Mass/Vol] 8.5 g/dL Low 11.7-16.0 [facility] Comment on above: Performed By: #### L [id number] ####Manufacturing Helper: MARY [phone])[facility])[address] [place] [address] IMMATURE GRANS % 1.1 % Normal 0.0-2.0 [facility] Comment on above: Performed By: #### L [id number] ####Manufacturing Helper: MARY STOELO ([phone])[facility])[address] [place] [address] IMMATURE GRANS ABSOLUTE 0.1 10*3/uL High <0.1 [facility] Comment on above: Performed By: #### L [id number] ####Manufacturing Helper: MARY SOTELO ([phone])[facility])[address] [place] [address] Lymphocytes (Bld) [#/Vol] 0.7 10*3/uL Low 1.0-4.3 [facility] Comment on above: Performed By: #### L [id number] ####Manufacturing Helper: MARY SOTELO ([phone])[facility])[address] [place] [address] Lymphocytes/100 WBC (Bld) 6.5 % Low 15.0-45.0 [facility] Comment on above: Performed By: #### L [id number] ####Manufacturing Helper: MARY SOTELO ([phone])[facility])[address] [place] [address] MCH (RBC) [Entitic mass] 27.4 pg Normal 26.0-34.0 [facility] Comment on above: Performed By: #### L [id number] ####Manufacturing Helper: MARY SOTELO ([phone])[facility])[address] [place] [address] MCHC 29.7 % Low 30.5-36.0 [facility] Comment on above: Performed By: #### L [id number] ####Manufacturing Helper: MARY SOTELO ([phone])[facility])[address] [place] [address] MCV (RBC) [Entitic vol] 92.3 fL Normal 77.0-99.0 [facility] Comment on above: Performed By: #### L [id number] ####Manufacturing Helper: MARY SOTELO ([phone])[facility])[address] [place] [address] Monocytes (Bld) [#/Vol] 0.3 10*3/uL Normal 0.0-0.9 [facility] Comment on above: Performed By: #### L [id number] ####Manufacturing Helper: MARY SOTELO ([phone])[facility] ([facility])[address] [place] [address] Monocytes/100 WBC (Bld) 3.0 % Low 5.0-13.0 [facility] Comment on above: Performed By: #### L [id number] ####Manufacturing Helper: MARY SOTELO ([phone])[facility] ([facility])[address] [place] [address] NEUTROPHILS ABSOLUTE 9.6 10*3/uL High 1.8-7.5 [facility] Comment on above: Performed By: #### L [id number] ####Manufacturing Helper: MARY SOTELO ([phone])[facility] ([facility])[address] [place] [address] Neutrophils/100 WBC (Bld) 88.7 % High 38.0-82.0 [facility] Comment on above: Performed By: #### L [id number] ####Manufacturing Helper: MARY SOTELO ([phone])[facility])[address] [place] [address] NRBC 0.0 /100 WBCs Normal 0.0-2.0 [facility] Comment on above: Performed By: #### L [id number] ####Manufacturing Helper: MARY SOTELO ([phone])[facility])[address] [place] [address] Platelet mean volume (Bld) [Entitic vol] 9.9 fL Normal 9.0-12.7 [facility] Comment on above: Performed By: #### L [id number] ####Manufacturing Helper: MARY SOTELO ([phone])[facility] ([facility])[address] [place] [address] Platelets (Bld) [#/Vol] 210 10*3/uL Normal 140-440 [facility] Comment on above: Performed By: #### L [id number] ####Manufacturing Helper: MARY SOTELO ([phone])[facility] ([facility])[address] [place] [address] RBC (Bld) [#/Vol] 3.10 10*6/uL Low 3.80-5.20 [facility] Comment on above: Performed By: #### L [id number] ####Manufacturing Helper: MARY SOTELO ([phone])[facility] ([facility])[address] [place] [address] WBC (Bld) [#/Vol] 10.8 10*3/uL High 3.6-10.7 [facility] Comment on above: Performed By: #### L [id number] ####Manufacturing Helper: MARY SOTELO ([phone])[facility] ([facility])[address] [place] [address] Calcium.ionized [Moles/Vol]o n 08-03-2024 Calcium.ionized (Bld) [Moles/Vol] 4.20 mg/dL Low 4.30 - 5.20 mg/dL [facility] Interpretation and review of laboratory results Abnormal [facility] PH, IONIZED CALCIUM 7.29 Low 7.31 - 7.46 [facility] Laboratory - Chemistry and C hemistry - challengeon 08-03-2024 Glucose [Mass/Vol] 118 mg/dL High 70 - 100 mg/dL [facility] Glucose [Mass/Vol] 93 mg/dL 70 - 100 mg/dL [facility] Glucose [Mass/Vol] 173 mg/dL High 70 - 100 mg/dL [facility] Glucose [Mass/Vol] 81 mg/dL 70 - 100 mg/dL [facility] Magnesium [Mass/Vol] 2.4 mg/dL High 1.6 - 2 .3 mg/dL [facility] Glucose [Mass/Vol] 88 mg/dL 70 - 100 mg/dL [facility] MAGNESIUMon 08-03-2024 Magnesium [Mass/Vol] 2.4 mg/dL High 1.6-2.3 [facility] Comment on above: Performed By: #### L AB103, LAB15, [id number] ####Manufacturing Helper: MARY SOTELO ([phone])[facility] ([facility])[address] [place] [address] No Panel Informationon 08-03 Interpretation and review of laboratory results Abnormal [facility] Interpretation and review of laboratory results Normal [facility] Interpretation and review of laboratory results Abnormal [facility] Interpretation and review of laboratory results Normal [facility] Interpretation and review of laboratory results Abnormal [facility] Interpretation and review of laboratory results Normal [facility] Nursing Noteon 08-03-2024 Nursing Note Normal [facility] PHOSPHORUSon 08-03-2024 Phosphate [Mass/Vol] 3.4 mg/dL Normal 2.5-4.5 [facility] Comment on above: Performed By: #### L AB103, LAB15, [id number] ####Manufacturing Helper: MARY SOTELO ([phone])[facility] [place] [address] Phosphate [Moles/Vol]on Interpretation and review of laboratory results Normal [facility] Phosphate [Mass/Vol] 3.4 mg/dL 2.5 - 4 .5 mg/dL [facility] Progress Noteon 08-03-2024 Progress Note Normal [facility] Progress Note Normal [facility] Progress Note Normal [facility] Progress Note Normal [facility] BASIC METABOLIC PANELon 3 Anion gap [Moles/Vol] 3 mmol/L Normal 3-13 [facility] Comment on above: Performed By: #### L AB113, LAB15, [id number] ####Manufacturing Helper: MARY SOTELO ([phone])[facility] [place] [address] Calcium [Mass/Vol] 7.4 mg/dL Low 8.4-10.4 [facility] Comment on above: Performed By: #### Dora AB113, LAB15, [id number] ####Manufacturing Helper: MARY SOTELO ([phone])[facility] [place] [address] Chloride [Moles/Vol] 107 mmol/L Normal 98-107 [facility] Comment on above: Performed By: #### Dora AB113, LAB15, [id number] ####Manufacturing Helper: MARY SOTELO ([phone])[facility] [place] [address] CO2 [Moles/Vol] 23 mmol/L Normal 22-30 [facility] Comment on above: Performed By: #### Dora ABGabbie, LAB15, [id number] ####Manufacturing Helper: MARY SOTELO ([phone])[facility] ([facility])[address] [place] [address] Creatinine [Mass/Vol] 1.55 mg/dL High 0.52-1.04 [facility] Comment on above: Performed By: #### Dora ABGabbie, LAB15, [id number] ####Manufacturing Helper: MARY SOTELO ([phone])[facility] ([facility])[address] [place] [address] [place] GLOMERULAR FILTRATION RATE ML/MIN/1.73 SQ M.PREDICTED 37.3 mL/min/1.73m*2 Low >60.0 [facility] Comment on above: Result Comment: Calc ulation based on the Chronic Kidney Disease Epidemiology Collaboration (CKD-EPI) equation refit without adjustment for race Performed By: #### Dora ABGabbie, LAB15, [id number] ####Manufacturing Helper: MARY SOTELO ([phone])[facility] ([facility])[address] [place] [address] [place] Glucose [Mass/Vol] 212 mg/dL High 70-100 [facility] Comment on above: Performed By: #### L AB113, LAB15, [id number] ####Manufacturing Helper: MARY [phone])[facility] ([facility])[address] [place] [address] Potassium [Moles/Vol] 4.1 mmol/L Normal 3.5-5.1 [facility] Comment on above: Performed By: #### L AB113, LAB15, [id number] ####Manufacturing Helper: MARY SOTELO ([phone])[facility] ([facility])[address] [place] [address] Sodium [Moles/Vol] 134 mmol/L Low 135-145 [facility] Comment on above: Performed By: #### L AB113, LAB15, [id number] ####Manufacturing Helper: MARY SOTELO ([phone])[facility] ([facility])[address] [place] [address] Urea nitrogen [Mass/Vol] 21 mg/dL High 7-17 [facility] Comment on above: Performed By: #### L AB113, LAB15, [id number] ####Manufacturing Helper: MARY SOTELO ([phone])[facility] [place] [address] Basic metabolic 1998 panelon 08-02-2024 Anion gap [Moles/Vol] 3 mmol/L 3 - 13 mmol/L [facility] Calcium [Mass/Vol] 7.4 mg/dL Low 8.4 - 10. 4 mg/dL [facility] Chloride [Moles/Vol] 107 mmol/L 98 - 10 7 mmol/L [facility] CO2 [Moles/Vol] 23 mmol/L 22 - 30 mmol/L [facility] Creatinine [Mass/Vol] 1.55 mg/dL High 0.52 - 1.04 mg/dL [facility] GFR/1.73 sq M.predicted (S/P/Bld) [Vol rate/Area] 37.3 mL/min Low - PINF [facility] Glucose [Mass/Vol] 212 mg/dL High 70 - 100 mg/dL [facility] Interpretation and review of laboratory results Abnormal [facility] Potassium [Moles/Vol] 4.1 mmol/L 3.5 - 5.1 mmol/L [facility] Sodium [Moles/Vol] 134 mmol/L Low 135 - 145 mmol/L [facility] Urea nitrogen [Mass/Vol] 21 mg/dL High 7 - 17 mg/dL [facility] CALCIUM, IONIZEDon CALCIUM IONIZED 4.30 mg/dL Normal 4.30-5.20 [facility] Comment on above: Performed By: #### L AB54 ####Manufacturing Helper: MARY SOTELO ([phone])[facility] ([facility])[address] [place] [address] PH, IONIZED CALCIUM 7.36 Normal 7.31-7.46 [facility] Comment on above: Performed By: #### L AB54 ####Manufacturing Helper: MARY SOTELO ([phone])[facility] ([facility])[address] [place] [address] CARECOORDon 08-02-2024 CARECOORD Normal [facility] CARECOORD Normal [facility] CBC W Auto Differential pane l (Bld)on 08-02-2024 Basophils (Bld) [#/Vol] 0.0 10*3/uL 0.0 - 0.2 10*3/uL [facility] Basophils/100 WBC (Bld) 0.1 % 0.0 - 2.0 % [facility] Eosinophils (Bld) [#/Vol] 0.0 10*3/uL 0.0 - 0.5 10*3/uL [facility] Eosinophils/100 WBC (Bld) 0.4 % 0.0 - 6.0 % [facility] Erythrocyte distribution width (RBC) [Ratio] 17.8 % High 11.5 - 15.0 % [facility] Hematocrit (Bld) [Volume fraction] 24.7 % Low 35.0 - 47.0 % [facility] Hemoglobin (Bld) [Mass/Vol] 7.8 g/dL Low 11.7 - 16.0 g/dL [facility] Immature granulocytes (Bld) [#/Vol] 0.1 10*3/uL High NINF - 0.1 10*3/uL [facility] Immature granulocytes/100 WBC (Bld) 0.6 % 0.0 - 2.0 % [facility] Interpretation and review of laboratory results Abnormal [facility] Lymphocytes (Bld) [#/Vol] 0.4 10*3/uL Low 1.0 - 4.3 10*3/uL [facility] Lymphocytes/100 WBC (Bld) 4.5 % Low 15.0 - 45.0 % [facility] MCH (RBC) [Entitic mass] 28.4 pg 26.0 - 34.0 pg [facility] MCHC (RBC) [Mass/Vol] 31.6 % 30.5 - 36.0 % [facility] MCV (RBC) [Entitic vol] 89.8 fL 77.0 - 99.0 fL [facility] Monocytes (Bld) [#/Vol] 0.2 10*3/uL 0.0 - 0.9 10*3/uL [facility] Monocytes/100 WBC (Bld) 2.1 % Low 5.0 - 13.0 % [facility] Neutrophils (Bld) [#/Vol] 9.0 10*3/uL High 1.8 - 7.5 10*3/uL [facility] Neutrophils/100 WBC (Bld) 92.3 % High 38.0 - 82.0 % [facility] Nucleated RBC/100 WBC (Bld) [Ratio] 0.0 % [facility] [employer] Platelet mean volume (Bld) [Entitic vol] 10.4 fL 9.0 - 12.7 fL [facility] Platelets (Bld) [#/Vol] 177 10*3/uL 140 - 440 10*3/uL [facility] RBC (Bld) [#/Vol] 2.75 10*6/uL Low 3.80 - 5.2 0 10*6/uL [facility] WBC (Bld) [#/Vol] 9.8 10*3/uL 3.6 - 10.7 10*3/uL [facility] CBC WITH AUTO DIFFERENTIALon 08-02-2024 Basophils (Bld) [#/Vol] 0.0 10*3/uL Normal 0.0-0.2 [facility] Comment on above: Performed By: #### L [id number] ####Manufacturing Helper: MARY SOTELO ([phone])[facility] ([address] Basophils/100 WBC (Bld) 0.1 % Normal 0.0-2.0 [facility] Comment on above: Performed By: #### L [id number] ####Manufacturing Helper: MARY SOTELO ([phone])[facility])[address] [place] [address] Eosinophils (Bld) [#/Vol] 0.0 10*3/uL Normal 0.0-0.5 [facility] Comment on above: Performed By: #### L [id number] ####Manufacturing Helper: MARY SOTELO ([phone])[facility])[address] [place] [address] Eosinophils/100 WBC (Bld) 0.4 % Normal 0.0-6.0 [facility] Comment on above: Performed By: #### L [id number] ####Manufacturing Helper: MARY SOTELO ([phone])[address] Erythrocyte distribution width (RBC) [Ratio] 17.8 % High 11.5-15.0 [facility] Comment on above: Performed By: #### L [id number] ####Manufacturing Helper: MARY SOTELO ([phone])[address] Hematocrit (Bld) [Volume fraction] 24.7 % Low 35.0-47.0 [facility] Comment on above: Performed By: #### L [id number] ####Manufacturing Helper: MARY SOTELO ([phone])[address] Hemoglobin (Bld) [Mass/Vol] 7.8 g/dL Low 11.7-16.0 [facility] Comment on above: Performed By: #### L [id number] ####Manufacturing Helper: MARY SOTELO ([phone])[facility])[address] [place] [address] IMMATURE GRANS % 0.6 % Normal 0.0-2.0 [facility] Comment on above: Performed By: #### L [id number] ####Manufacturing Helper: MARY SOTELO ([phone])[facility])[address] [place] [address] IMMATURE GRANS ABSOLUTE 0.1 10*3/uL High <0.1 [facility] Comment on above: Performed By: #### L [id number] ####Manufacturing Helper: MARY SOTELO ([phone])[facility])[address] [place] [address] Lymphocytes (Bld) [#/Vol] 0.4 10*3/uL Low 1.0-4.3 [facility] Comment on above: Performed By: #### L [id number] ####Manufacturing Helper: MARY SOTELO ([phone])[address] Lymphocytes/100 WBC (Bld) 4.5 % Low 15.0-45.0 [facility] Comment on above: Performed By: #### L [id number] ####Manufacturing Helper: MARY SOTELO ([phone])[facility])[address] [place] [address] MCH (RBC) [Entitic mass] 28.4 pg Normal 26.0-34.0 [facility] Comment on above: Performed By: #### L [id number] ####Manufacturing Helper: MARY SOTELO ([phone])[facility])[address] [place] [address] MCHC 31.6 % Normal 30.5-36.0 [facility] Comment on above: Performed By: #### L [id number] ####Manufacturing Helper: MARY SOTELO ([phone])[facility])[address] [place] [address] MCV (RBC) [Entitic vol] 89.8 fL Normal 77.0-99.0 [facility] Comment on above: Performed By: #### L [id number] ####Manufacturing Helper: MARY SOTELO ([phone])[facility])[address] [place] [address] [place] Monocytes (Bld) [#/Vol] 0.2 10*3/uL Normal 0.0-0.9 [facility] Comment on above: Performed By: #### L [id number] ####Manufacturing Helper: MARY SOTELO ([phone])[facility] ([facility])[address] [place] [address] Monocytes/100 WBC (Bld) 2.1 % Low 5.0-13.0 [facility] Comment on above: Performed By: #### L [id number] ####Manufacturing Helper: MARY SOTELO ([phone])[facility] ([facility])[address] [place] [address] NEUTROPHILS ABSOLUTE 9.0 10*3/uL High 1.8-7.5 [facility] Comment on above: Performed By: #### L [id number] ####Manufacturing Helper: MARY SOTELO ([phone])[facility] ([facility])[address] [place] [address] Neutrophils/100 WBC (Bld) 92.3 % High 38.0-82.0 [facility] Comment on above: Performed By: #### L [id number] ####Manufacturing Helper: MARY SOTELO ([phone])[facility] ([facility])[address] [place] [address] NRBC 0.0 /100 WBCs Normal 0.0-2.0 [facility] Comment on above: Performed By: #### L [id number] ####Manufacturing Helper: MARY SOTELO ([phone])[facility] ([facility])[address] [place] [address] Platelet mean volume (Bld) [Entitic vol] 10.4 fL Normal 9.0-12.7 [facility] Comment on above: Performed By: #### L [id number] ####Manufacturing Helper: MARY SOTELO ([phone])[facility] ([facility])[address] [place] [address] Platelets (Bld) [#/Vol] 177 10*3/uL Normal 140-440 [facility] Comment on above: Performed By: #### L [id number] ####Manufacturing Helper: MARY SOTELO ([phone])[facility] ([facility])[address] [place] [address] RBC (Bld) [#/Vol] 2.75 10*6/uL Low 3.80-5.20 [facility] Comment on above: Performed By: #### L [id number] ####Manufacturing Helper: MARY SOTELO ([phone])[facility] ([facility])[address] [place] [address] WBC (Bld) [#/Vol] 9.8 10*3/uL Normal 3.6-10.7 [facility] Comment on above: Performed By: #### L [id number] ####Manufacturing Helper: MARY SOTELO ([phone])[facility] ([facility])[address] [place] [address] Calcium.ionized [Moles/Vol]o n 08-02-2024 Calcium.ionized (Bld) [Moles/Vol] 4.30 mg/dL 4.30 - 5.20 mg/dL [facility] Interpretation and review of laboratory results Normal [facility] PH, IONIZED CALCIUM 7.36 7.31 - 7.46 [facility] ECG 12-LEADon 08-02-2024 ECG 12-LEAD IMPRESSION: Unclear atrial rhythm - consider accelerated junctional Right bundle branch block Electronically Signed On 08-02-2024 08:53:44 EDT by Khai Duong Normal [facility] Laboratory - Chemistry and C hemistry - challengeon 08-02-2024 Glucose [Mass/Vol] 211 mg/dL High 70 - 100 mg/dL [facility] Glucose [Mass/Vol] 202 mg/dL High 70 - 100 mg/dL [facility] Glucose [Mass/Vol] 180 mg/dL High 70 - 100 mg/dL [facility] Magnesium [Mass/Vol] 2.3 mg/dL 1.6 - 2 .3 mg/dL [facility] Glucose [Mass/Vol] 217 mg/dL High 70 - 100 mg/dL [facility] MAGNESIUMon 08-02-2024 Magnesium [Mass/Vol] 2.3 mg/dL Normal 1.6-2.3 [facility] Comment on above: Performed By: #### Dora QUINTANILLA, [id number], [id number] ####Manufacturing Helper: MARY SOTELO ([phone])[facility] ([facility])[address] [place] [address] No Panel Informationon 08-02 Interpretation and review of laboratory results Abnormal [facility] Interpretation and review of laboratory results Abnormal [facility] CV EPIPHANY [facility] Interpretation and review of laboratory results Abnormal [facility] Interpretation and review of laboratory results Normal [facility] Interpretation and review of laboratory results Abnormal [facility] No Panel InformationOrdered By: Khai Duong on 08-02-2024 P [place] 0 degrees [facility] Work Phone: CT Interval 0 ms [facility] Work Phone: QRS [place] -118 degrees [facility] Work Phone: QRSD Interval 145 ms [facility] Work Phone: QT Interval 477 ms [facility] Work Phone: QTC Interval 528 ms [facility] Work Phone: T Wave [place] 36 degrees [facility] Work Phone: [facility] Work Phone: PHOSPHORUSon 08-02-2024 Phosphate [Mass/Vol] 3.0 mg/dL Normal 2.5-4.5 [facility] Comment on above: Performed By: #### Dora QUINTANILLA, LAB15, [id number] ####Manufacturing Helper: MARY SOTELO ([phone])[facility] [place] [address] Phosphate [Moles/Vol]on 07-06 Phosphate [Mass/Vol] 3.0 mg/dL 2.5 - 4 .5 mg/dL [facility] Progress Noteon 08-02-2024 Progress Note Normal [facility] Progress Note Normal [facility] Progress Note Normal [facility] Progress Note Normal [facility] Progress Note Normal [facility] Progress Note Normal [facility] Vital signsOrdered By: Khai Duong on 08-02-2024 Heart rate 73 /min bpm [facility] [employer] Work Phone: CALCIUM, IONIZEDon 4 CALCIUM IONIZED 4.10 mg/dL Low 4.30-5.20 [facility] Comment on above: Performed By: #### L [id number] ####Manufacturing Helper: MARY SOTELO ([phone])[facility] ([facility])[address] [place] [address] [place] PH, IONIZED CALCIUM 7.38 Normal 7.31-7.46 [facility] Comment on above: Performed By: #### L AB54 ####Manufacturing Helper: MARY SOTELO ([phone])[facility])[address] [place] [address] CALCIUM IONIZED 4.30 mg/dL Normal 4.30-5.20 [facility] Comment on above: Performed By: #### L AB54 ####Manufacturing Helper: MARY SOTELO ([phone])[facility] ([facility])[address] [place] [address] [place] PH, IONIZED CALCIUM 7.32 Normal 7.31-7.46 [facility] Comment on above: Performed By: #### L AB54 ####Manufacturing Helper: MARY SOTELO ([phone])[facility] ([facility])[address] [place] [address] [place] CALCIUM IONIZED 4.50 mg/dL Normal 4.30-5.20 [facility] Comment on above: Performed By: #### L AB54 ####Manufacturing Helper: MARY SOTELO ([phone])[facility])[address] [place] [address] [place] PH, IONIZED CALCIUM 7.31 Normal 7.31-7.46 [facility] Comment on above: Performed By: #### L AB54 ####Manufacturing Helper: MARY SOTELO ([phone])[facility] ([facility])[address] [place], [place] [id number] [facility] CBC W Auto Differential pane l (Bld)on [...] 8.7 10*3/uL High 1.8 - 7.5 10*3/uL [facility] Neutrophils/100 WBC (Bld) 84.1 % High 38.0 - 82.0 % [facility] Nucleated RBC/100 WBC (Bld) [Ratio] 0.0 % [facility] Platelet mean volume (Bld) [Entitic vol] 11.0 fL 9.0 - 12.7 fL [facility] Platelets (Bld) [#/Vol] 156 10*3/uL 140 - 440 10*3/uL [facility] RBC (Bld) [#/Vol] 2.94 10*6/uL Low 3.80 - 5.2 0 10*6/uL [facility] WBC (Bld) [#/Vol] 10.4 10*3/uL 3.6 - 10.7 10*3/uL [facility] CBC WITH AUTO DIFFERENTIALon 08-01-2024 Basophils (Bld) [#/Vol] 0.0 10*3/uL Normal 0.0-0.2 [facility] Comment on above: Performed By: #### L [id number] ####Manufacturing Helper: MARY SOTELO ([phone])[address] Basophils/100 WBC (Bld) 0.1 % Normal 0.0-2.0 [facility] Comment on above: Performed By: #### L [id number] ####Manufacturing Helper: MARY SOTELO ([phone])[place] [address] [place] Eosinophils (Bld) [#/Vol] 0.1 10*3/uL Normal 0.0-0.5 [facility] Comment on above: Performed By: #### L [id number] ####Manufacturing Helper: MARY SOTELO ([phone])[facility])[address] [place] [address] [place] Eosinophils/100 WBC (Bld) 0.7 % Normal 0.0-6.0 [facility] Comment on above: Performed By: #### L [id number] ####Manufacturing Helper: MARY [phone])[facility] [address] Erythrocyte distribution width (RBC) [Ratio] 17.1 % High 11.5-15.0 [facility] Comment on above: Performed By: #### L [id number] ####Manufacturing Helper: MARY SOTELO ([phone])[facility])[address] [place] [address] Hematocrit (Bld) [Volume fraction] 25.9 % Low 35.0-47.0 [facility] Comment on above: Performed By: #### L [id number] ####Manufacturing Helper: MARY SOTELO ([phone])[address] Hemoglobin (Bld) [Mass/Vol] 8.3 g/dL Low 11.7-16.0 [facility] Comment on above: Performed By: #### L [id number] ####Manufacturing Helper: MARY SOTELO ([phone])[facility])[address] [place] [address] IMMATURE GRANS % 0.3 % Normal 0.0-2.0 [facility] Comment on above: Performed By: #### L [id number] ####Manufacturing Helper: MARY SOTELO ([phone])[facility])[address] [place] [address] IMMATURE GRANS ABSOLUTE 0.0 10*3/uL Normal <0.1 [facility] Comment on above: Performed By: #### L [id number] ####Manufacturing Helper: MARY SOTELO ([phone])[facility])[address] [place] [address] Lymphocytes (Bld) [#/Vol] 1.0 10*3/uL Normal 1.0-4.3 [facility] Comment on above: Performed By: #### L [id number] ####Manufacturing Helper: MARY SOTELO ([phone])[facility])[address] [place] [address] Lymphocytes/100 WBC (Bld) 9.9 % Low 15.0-45.0 [facility] Comment on above: Performed By: #### L [id number] ####Manufacturing Helper: MARY SOTELO ([phone])[facility])[address] [place] [address] MCH (RBC) [Entitic mass] 28.2 pg Normal 26.0-34.0 [facility] Comment on above: Performed By: #### L [id number] ####Manufacturing Helper: MARY SOTELO ([phone])[facility])[address] [place] [address] MCHC 32.0 % Normal 30.5-36.0 [facility] Comment on above: Performed By: #### L [id number] ####Manufacturing Helper: MARY SOTELO ([phone])[facility])[address] [place] [address] MCV (RBC) [Entitic vol] 88.1 fL Normal 77.0-99.0 [facility] Comment on above: Performed By: #### L [id number] ####Manufacturing Helper: MARY SOTELO ([phone])[facility])[address] [place] [address] Monocytes (Bld) [#/Vol] 0.5 10*3/uL Normal 0.0-0.9 [facility] Comment on above: Performed By: #### L [id number] ####Manufacturing Helper: MARY SOTELO ([phone])[facility])[address] [place] [address] Monocytes/100 WBC (Bld) 4.9 % Low 5.0-13.0 [facility] Comment on above: Performed By: #### L [id number] ####Manufacturing Helper: MARY SOTELO ([phone])[facility])[address] [place] [address] NEUTROPHILS ABSOLUTE 8.7 10*3/uL High 1.8-7.5 [facility] Comment on above: Performed By: #### L [id number] ####Manufacturing Helper: MARY [phone])[facility] [place] [address] Neutrophils/100 WBC (Bld) 84.1 % High 38.0-82.0 [facility] Comment on above: Performed By: #### L [id number] ####Manufacturing Helper: MARY SOTELO ([phone])[facility] ([facility])[address] [place] [address] NRBC 0.0 /100 WBCs Normal 0.0-2.0 [facility] Comment on above: Performed By: #### L [id number] ####Manufacturing Helper: MARY SOTELO ([phone])[facility] ([facility])[address] [place] [address] Platelet mean volume (Bld) [Entitic vol] 11.0 fL Normal 9.0-12.7 [facility] Comment on above: Performed By: #### L [id number] ####Manufacturing Helper: MARY SOTELO ([phone])[facility] ([facility])[address] [place] [address] Platelets (Bld) [#/Vol] 156 10*3/uL Normal 140-440 [facility] Comment on above: Performed By: #### L [id number] ####Manufacturing Helper: MARY SOTELO ([phone])[facility] ([facility])[address] [place] [address] RBC (Bld) [#/Vol] 2.94 10*6/uL Low 3.80-5.20 [facility] Comment on above: Performed By: #### L [id number] ####Manufacturing Helper: MARY SOTELO ([phone])[facility] ([facility])[address] [place] [address] [place] WBC (Bld) [#/Vol] 10.4 10*3/uL Normal 3.6-10.7 [facility] Comment on above: Performed By: #### L [id number] ####Manufacturing Helper: MARY SOTELO ([phone])[facility] ([facility])[address] [place] [address] Calcium.ionized [Moles/Vol]o n 08-01-2024 Calcium.ionized (Bld) [Moles/Vol] 4.10 mg/dL Low 4.30 - 5.20 mg/dL [facility] Interpretation and review of laboratory results Abnormal [facility] PH, IONIZED CALCIUM 7.38 7.31 - 7.46 [facility] Calcium.ionized (Bld) [Moles/Vol] 4.30 mg/dL 4.30 - 5.20 mg/dL [facility] Interpretation and review of laboratory results Normal [facility] PH, IONIZED CALCIUM 7.32 7.31 - 7.46 [facility] Calcium.ionized (Bld) [Moles/Vol] 4.50 mg/dL 4.30 - 5.20 mg/dL [facility] Interpretation and review of laboratory results Normal [facility] PH, IONIZED CALCIUM 7.31 7.31 - 7.46 [facility] IDNon 08-01-2024 IDN Normal [facility] - Chemistry and C hemistry - challengeon 08-01-2024 Glucose [Mass/Vol] 192 mg/dL High 70 - 100 mg/dL [facility] Glucose [Mass/Vol] 170 mg/dL High 70 - 100 mg/dL [facility] Glucose [Mass/Vol] 166 mg/dL High 70 - 100 mg/dL [facility] Glucose [Mass/Vol] 120 mg/dL High 70 - 100 mg/dL [facility] Glucose [Mass/Vol] 161 mg/dL High 70 - 100 mg/dL [facility] No Panel Informationon 08-01 Interpretation and review of laboratory results Abnormal [facility] Interpretation and review of laboratory results Abnormal [facility] Interpretation and review of laboratory results Abnormal [facility] Interpretation and review of laboratory results Abnormal [facility] Interpretation and review of laboratory results Abnormal [facility] Progress Noteon 08-01-2024 Progress Note Normal [facility] Progress Note Normal [facility] Progress Note [facility] RENAL FUNCTION PANELon 08-01 Albumin [Mass/Vol] 2.1 g/dL Low 3.5-5.0 [facility] Comment on above: Performed By: #### L [id number] ####Manufacturing Helper: MARY SOTELO ([phone])[facility])[address] [place] [address] Anion gap [Moles/Vol] 3 mmol/L Normal 3-13 [facility] Comment on above: Performed By: #### L [id number] ####Manufacturing Helper: MARY SOTELO ([phone])[facility] ([facility])[address] [place] [address] Calcium [Mass/Vol] 7.2 mg/dL Low 8.4-10.4 [facility] Comment on above: Performed By: #### L [id number] ####Manufacturing Helper: MARY SOTELO ([phone])[facility])[address] [place] [address] Chloride [Moles/Vol] 106 mmol/L Normal 98-107 [facility] Comment on above: Performed By: #### L [id number] ####Manufacturing Helper: MARY SOTELO ([phone])[facility] ([facility])[address] [place] [address] CO2 [Moles/Vol] 23 mmol/L Normal 22-30 [facility] Comment on above: Performed By: #### L [id number] ####Manufacturing Helper: MARY SOTELO ([phone])[facility])[address] [place] [address] Creatinine [Mass/Vol] 0.87 mg/dL Normal 0.52-1.04 [facility] Comment on above: Performed By: #### L [id number] ####Manufacturing Helper: MARY SOTELO ([phone])[facility])[address] [place] [address] GLOMERULAR FILTRATION RATE ML/MIN/1.73 SQ M.PREDICTED 74.5 mL/min/1.73m*2 Normal >60.0 [facility] Comment on above: Result Comment: Calc ulation based on the Chronic Kidney Disease Epidemiology Collaboration (CKD-EPI) equation refit without adjustment for race Performed By: #### L [id number] ####Manufacturing Helper: MARY SOTELO ([phone])[facility] ([facility])[address] [place] [address] Glucose [Mass/Vol] 170 mg/dL High 70-100 [facility] Comment on above: Performed By: #### L [id number] ####Manufacturing Helper: MARY SOTELO ([phone])[facility] ([facility])[address] [place] [address] Phosphate [Mass/Vol] 2.3 mg/dL Low 2.5-4.5 [facility] Comment on above: Performed By: #### L [id number] ####Manufacturing Helper: MARY SOTELO ([phone])[facility] ([facility])[address] [place] [address] Potassium [Moles/Vol] 4.1 mmol/L Normal 3.5-5.1 [facility] Comment on above: Performed By: #### L [id number] ####Manufacturing Helper: MARY SOTELO ([phone])[facility] ([facility])[address] [place] [address] Sodium [Moles/Vol] 132 mmol/L Low 135-145 [facility] Comment on above: Performed By: #### L [id number] ####Manufacturing Helper: MARY SOTELO ([phone])[facility] ([facility])[address] [place] [address] Urea nitrogen [Mass/Vol] 13 mg/dL Normal 7-17 [facility] Comment on above: Performed By: #### L [id number] ####Manufacturing Helper: MARY STOELO ([phone])[facility] ([facility])[address] [place] [address] Albumin [Mass/Vol] 2.0 g/dL Low 3.5-5.0 [facility] Comment on above: Performed By: #### L [id number] ####Manufacturing Helper: MARY SOTELO ([phone])[facility] ([facility])[address] [place] [address] [place] Anion gap [Moles/Vol] 2 mmol/L Low 3-13 [facility] Comment on above: Performed By: #### L [id number] ####Manufacturing Helper: MARY SOTELO ([phone])[facility] ([facility])[address] [place] [address] Calcium [Mass/Vol] 7.4 mg/dL Low 8.4-10.4 [facility] Comment on above: Performed By: #### L [id number] ####Manufacturing Helper: MARY SOTELO ([phone])[facility] [place] [address] Chloride [Moles/Vol] 106 mmol/L Normal 98-107 [facility] Comment on above: Performed By: #### L [id number] ####Manufacturing Helper: MARY SOTELO ([phone])[facility] [place] [address] CO2 [Moles/Vol] 24 mmol/L Normal 22-30 [facility] Comment on above: Performed By: #### L [id number] ####Manufacturing Helper: MARY SOTELO ([phone])[facility] ([facility])[address] [place] [address] Creatinine [Mass/Vol] 0.90 mg/dL Normal 0.52-1.04 [facility] Comment on above: Performed By: #### L [id number] ####Manufacturing Helper: MARY SOTELO ([phone])[facility] ([facility])[address] [place] [address] GLOMERULAR FILTRATION RATE ML/MIN/1.73 SQ M.PREDICTED 71.5 mL/min/1.73m*2 Normal >60.0 [facility] Comment on above: Result Comment: Calc ulation based on the Chronic Kidney Disease Epidemiology Collaboration (CKD-EPI) equation refit without adjustment for race Performed By: #### L [id number] ####Manufacturing Helper: MARY SOTELO ([phone])[facility] [place] [address] Glucose [Mass/Vol] 119 mg/dL High 70-100 [facility] Comment on above: Performed By: #### L [id number] ####Manufacturing Helper: MARY SOTELO ([phone])[facility])[address] [place] [address] Phosphate [Mass/Vol] 2.6 mg/dL Normal 2.5-4.5 [facility] Comment on above: Performed By: #### L [id number] ####Manufacturing Helper: MARY SOTELO ([phone])[facility] ([facility])[address] [place] [address] Potassium [Moles/Vol] 4.0 mmol/L Normal 3.5-5.1 [facility] Comment on above: Performed By: #### L [id number] ####Manufacturing Helper: MARY SOTELO ([phone])[facility])[address] [place] [address] Sodium [Moles/Vol] 133 mmol/L Low 135-145 [facility] Comment on above: Performed By: #### L AB19 ####Manufacturing Helper: MARY SOTELO ([phone])[facility] ([facility])[address] [place] [address] Urea nitrogen [Mass/Vol] 14 mg/dL Normal 7-17 [facility] Comment on above: Performed By: #### L [id number] ####Manufacturing Helper: MARY SOTELO ([phone])[facility])[address] [place] [address] Albumin [Mass/Vol] 2.1 g/dL Low 3.5-5.0 [facility] Comment on above: Performed By: #### L [id number] ####Manufacturing Helper: MARY SOTELO ([phone])[facility])[address] [place] [address] Anion gap [Moles/Vol] 3 mmol/L Normal 3-13 [facility] Comment on above: Performed By: #### L AB19 ####Manufacturing Helper: MARY SOTELO ([phone])[facility])[address] [place] [address] Calcium [Mass/Vol] 7.8 mg/dL Low 8.4-10.4 [facility] Comment on above: Performed By: #### L [id number] ####Manufacturing Helper: MARY SOTELO ([phone])[facility] [place] [address] Chloride [Moles/Vol] 105 mmol/L Normal 98-107 [facility] Comment on above: Performed By: #### L AB19 ####Manufacturing Helper: MARY SOTELO ([phone])[facility] ([facility])[address] [place] [address] CO2 [Moles/Vol] 25 mmol/L Normal 22-30 [facility] Comment on above: Performed By: #### L [id number] ####Manufacturing Helper: MARY SOTELO ([phone])[facility] ([facility])[address] [place] [address] Creatinine [Mass/Vol] 0.85 mg/dL Normal 0.52-1.04 [facility] Comment on above: Performed By: #### L [id number] ####Manufacturing Helper: MARY SOTELO ([phone])[facility] ([facility])[address] [place] [address] [place] GLOMERULAR FILTRATION RATE ML/MIN/1.73 SQ M.PREDICTED 76.6 mL/min/1.73m*2 Normal >60.0 [facility] Comment on above: Result Comment: Calc ulation based on the Chronic Kidney Disease Epidemiology Collaboration (CKD-EPI) equation refit without adjustment for race Performed By: #### L AB19 ####Manufacturing Helper: MARY SOTELO ([phone])[facility] ([facility])[address] [place] [address] [place] Glucose [Mass/Vol] 161 mg/dL High 70-100 [facility] Comment on above: Performed By: #### L [id number] ####Manufacturing Helper: MARY SOTELO ([phone])[facility] ([facility])[address] [place] [address] [place] Phosphate [Mass/Vol] 3.0 mg/dL Normal 2.5-4.5 [facility] Comment on above: Performed By: #### L AB19 ####Manufacturing Helper: MARY SOTELO ([phone])[facility] ([facility])[address] [place] [address] Potassium [Moles/Vol] 4.2 mmol/L Normal 3.5-5.1 [facility] Comment on above: Performed By: #### L [id number] ####Manufacturing Helper: MARY SOTELO ([phone])[facility] ([facility])[address] [place] [address] Sodium [Moles/Vol] 133 mmol/L Low 135-145 [facility] Comment on above: Performed By: #### L [id number] ####Manufacturing Helper: MARY SOTELO ([phone])[facility] ([facility])[address] [place] [address] Urea nitrogen [Mass/Vol] 15 mg/dL Normal 7-17 [facility] Comment on above: Performed By: #### L AB19 ####Manufacturing Helper: MARY SOTELO ([phone])[facility] ([facility])[address] [place] [address] Renal function 2000 panelon 08-01-2024 Albumin [Mass/Vol] 2.1 g/dL Low 3.5 - 5.0 g/dL [facility] Anion gap [Moles/Vol] 3 mmol/L 3 - 13 mmol/L [facility] Calcium [Mass/Vol] 7.2 mg/dL Low 8.4 - 10. 4 mg/dL [facility] Chloride [Moles/Vol] 106 mmol/L 98 - 10 7 mmol/L [facility] CO2 [Moles/Vol] 23 mmol/L 22 - 30 mmol/L [facility] Creatinine [Mass/Vol] 0.87 mg/dL 0.52 - 1.04 mg/dL [facility] GFR/1.73 sq M.predicted (S/P/Bld) [Vol rate/Area] 74.5 mL/min - PINF [facility] Glucose [Mass/Vol] 170 mg/dL High 70 - 100 mg/dL [facility] Interpretation and review of laboratory results Abnormal [facility] Phosphate [Mass/Vol] 2.3 mg/dL Low 2.5 - 4 .5 mg/dL [facility] Potassium [Moles/Vol] 4.1 mmol/L 3.5 - 5.1 mmol/L [facility] Sodium [Moles/Vol] 132 mmol/L Low 135 - 145 mmol/L [facility] Urea nitrogen [Mass/Vol] 13 mg/dL 7 - 17 mg/dL [facility] Albumin [Mass/Vol] 2.0 g/dL Low 3.5 - 5.0 g/dL [facility] Anion gap [Moles/Vol] 2 mmol/L Low 3 - 13 mmol/L [facility] Calcium [Mass/Vol] 7.4 mg/dL Low 8.4 - 10. 4 mg/dL [facility] Chloride [Moles/Vol] 106 mmol/L 98 - 10 7 mmol/L [facility] CO2 [Moles/Vol] 24 mmol/L 22 - 30 mmol/L [facility] Creatinine [Mass/Vol] 0.90 mg/dL 0.52 - 1.04 mg/dL [facility] GFR/1.73 sq M.predicted (S/P/Bld) [Vol rate/Area] 71.5 mL/min - PINF [facility] Glucose [Mass/Vol] 119 mg/dL High 70 - 100 mg/dL [facility] Interpretation and review of laboratory results Abnormal [facility] Phosphate [Mass/Vol] 2.6 mg/dL 2.5 - 4 .5 mg/dL [facility] Potassium [Moles/Vol] 4.0 mmol/L 3.5 - 5.1 mmol/L [facility] Sodium [Moles/Vol] 133 mmol/L Low 135 - 145 mmol/L [facility] Urea nitrogen [Mass/Vol] 14 mg/dL 7 - 17 mg/dL [facility] Albumin [Mass/Vol] 2.1 g/dL Low 3.5 - 5.0 g/dL [facility] Anion gap [Moles/Vol] 3 mmol/L 3 - 13 mmol/L [facility] Calcium [Mass/Vol] 7.8 mg/dL Low 8.4 - 10. 4 mg/dL [facility] Chloride [Moles/Vol] 105 mmol/L 98 - 10 7 mmol/L [facility] CO2 [Moles/Vol] 25 mmol/L 22 - 30 mmol/L [facility] Creatinine [Mass/Vol] 0.85 mg/dL 0.52 - 1.04 mg/dL [facility] GFR/1.73 sq M.predicted (S/P/Bld) [Vol rate/Area] 76.6 mL/min - PINF [facility] Glucose [Mass/Vol] 161 mg/dL High 70 - 100 mg/dL [facility] Interpretation and review of laboratory results Abnormal [facility] Phosphate [Mass/Vol] 3.0 mg/dL 2.5 - 4 .5 mg/dL [facility] Potassium [Moles/Vol] 4.2 mmol/L 3.5 - 5.1 mmol/L [facility] Sodium [Moles/Vol] 133 mmol/L Low 135 - 145 mmol/L [facility] Urea nitrogen [Mass/Vol] 15 mg/dL 7 - 17 mg/dL [facility] ABO and Rh group Confirm Nom (Bld)on 07-31-2024 ABO group Nom (Bld) O [facility] D Ag Ql (RBC) Positive [facility] BLOOD GAS ARTERIALon 024 Base excess Calc (Bld) [Moles/Vol] -0.9000 mmol/L Normal -3.0-3.0 [facility] Comment on above: Performed By: #### L [id number] ####Manufacturing Helper: MARY SOTELO ([phone])[facility])[address] [place] [address] CO2 [Moles/Vol] 26.4 mmol/L Normal 23.0-27.0 [facility] Comment on above: Performed By: #### L [id number] ####Manufacturing Helper: MARY SOTELO ([phone])[facility] ([facility])[address] [place] [address] HCO3 (Bld) [Moles/Vol] 25.0 mmol/L Normal 21.0-25.0 [facility] Comment on above: Performed By: #### L [id number] ####Manufacturing Helper: MARY SOTELO ([phone])[facility] [address] Hemoglobin (Bld) [Mass/Vol] 7.1 g/dL Normal Screen only [facility] Comment on above: Performed By: #### L [id number] ####Manufacturing Helper: MARY SOTELO ([phone])[facility])[address] [place] [address] OXYGEN SATURATION (%) IN ARTERIAL BLOOD 98.0 % Normal 95.0-100.0 [facility] Comment on above: Performed By: #### L [id number] ####Manufacturing Helper: MARY SOTELO ([phone])[facility])[address] [place] [address] PCO2 ARTERIAL 47.9 mm Hg High >35.0-<45.0 [facility] Comment on above: Performed By: #### L [id number] ####Manufacturing Helper: MARY SOTELO ([phone])[facility])[address] [place] [address] PH ARTERIAL 7.335 Low 7.350-7.450 [facility] Comment on above: Performed By: #### L AB76 ####Manufacturing Helper: MARY SOTELO ([phone])[facility])[address] [place] [address] PO2 ARTERIAL 143.8 mm Hg High 80.0-100.0 [facility] Comment on above: Performed By: #### L [id number] ####Manufacturing Helper: MARY SOTELO ([phone])[address] SOURCE OF OXYGEN Nasal cannula Normal [facility] Comment on above: Performed By: #### L [id number] ####Manufacturing Helper: MARY SOTELO ([phone])[address] BLOOD TYPE AND SCREEN GELon 07-31-2024 ABO GROUPING O Normal [facility] Comment on above: Performed By: #### L [id number] ####Manufacturing Helper: MARY [phone])[facility] ([facility])[address] [place] [address] RH TYPE IN BLOOD Positive Normal [facility] Comment on above: Performed By: #### L [id number] ####Manufacturing Helper: MARY SOTELO ([phone])[facility] ([facility])[address] [place] [address] Blood type and Crossmatch pa eunice (Bld)on 07-31-2024 ABO group Nom (Bld) O [facility] Blood group antibody screen GEL Ql Negative [facility] D Ag Ql (RBC) Positive [facility] CALCIUM, IONIZEDon 4 CALCIUM IONIZED 4.70 mg/dL Normal 4.30-5.20 [facility] Comment on above: Performed By: #### L AB54 ####Manufacturing Helper: MARY SOTELO ([phone])[facility])[address] [place] [address] PH, IONIZED CALCIUM 7.31 Normal 7.31-7.46 [facility] Comment on above: Performed By: #### L AB54 ####Manufacturing Helper: MARY SOTELO ([phone])[facility])[address] [place] [address] CALCIUM IONIZED 4.80 mg/dL Normal 4.30-5.20 [facility] Comment on above: Performed By: #### L AB54 ####Manufacturing Helper: MARY SOTELO ([phone])[facility])[address] [place] [address] PH, IONIZED CALCIUM 7.36 Normal 7.31-7.46 [facility] Comment on above: Performed By: #### L AB54 ####Manufacturing Helper: MARY SOTELO ([phone])[facility])[address] [place] [address] CALCIUM IONIZED 4.90 mg/dL Normal 4.30-5.20 [facility] Comment on above: Performed By: #### L AB54 ####Manufacturing Helper: MARY SOTELO ([phone])[facility] ([facility])[address] [place] [address] PH, IONIZED CALCIUM 7.35 Normal 7.31-7.46 [facility] Comment on above: Performed By: #### L AB54 ####Manufacturing Helper: MARY SOTELO ([phone])[facility])[address] [place] [address] CALCIUM IONIZED 4.80 mg/dL Normal 4.30-5.20 [facility] Comment on above: Performed By: #### L AB54 ####Manufacturing Helper: MARY SOTELO ([phone])[facility])[address] [place] [address] PH, IONIZED CALCIUM 7.38 Normal 7.31-7.46 [facility] Comment on above: Performed By: #### L AB54 ####Manufacturing Helper: MARY SOTELO ([phone])[facility] ([facility])[address] [place] [address] CBC (HEMOGRAM)on 07-31-2024 Erythrocyte distribution width (RBC) [Ratio] 15.2 % High 11.5-15.0 [facility] Comment on above: Performed By: #### L [id number] ####Manufacturing Helper: MARY SOTELO ([phone])[facility] ([facility])[address] [place] [address] Hematocrit (Bld) [Volume fraction] 21.6 % Low 35.0-47.0 [facility] Comment on above: Performed By: #### L [id number] ####Manufacturing Helper: MARY SOTELO ([phone])[facility] ([facility])[address] [place] [address] Hemoglobin (Bld) [Mass/Vol] 6.8 g/dL Critically low 11.7-16.0 [facility] Comment on above: Performed By: #### L [id number] ####Manufacturing Helper: MARY SOTELO ([phone])[facility] ([facility])[address] [place] [address] MCH (RBC) [Entitic mass] 28.7 pg Normal 26.0-34.0 [facility] Comment on above: Performed By: #### L [id number] ####Manufacturing Helper: MARY SOTELO ([phone])[facility])[address] [place] [address] MCHC 31.5 % Normal 30.5-36.0 [facility] Comment on above: Performed By: #### L [id number] ####Manufacturing Helper: MARY SOTELO ([phone])[facility])[address] [place] [address] MCV (RBC) [Entitic vol] 91.1 fL Normal 77.0-99.0 [facility] Comment on above: Performed By: #### L [id number] ####Manufacturing Helper: MARY SOTELO ([phone])[facility])[address] [place] [address] Platelet mean volume (Bld) [Entitic vol] 10.9 fL Normal 9.0-12.7 [facility] Comment on above: Performed By: #### L [id number] ####Manufacturing Helper: MARY SOTELO ([phone])[facility])[address] [place] [address] Platelets (Bld) [#/Vol] 158 10*3/uL Normal 140-440 [facility] Comment on above: Performed By: #### L [id number] ####Manufacturing Helper: MARY SOTELO ([phone])[facility])[address] [place] [address] RBC (Bld) [#/Vol] 2.37 10*6/uL Low 3.80-5.20 [facility] Comment on above: Performed By: #### L [id number] ####Manufacturing Helper: MARY SOTELO ([phone])[facility])[address] [place] [address] WBC (Bld) [#/Vol] 15.0 10*3/uL High 3.6-10.7 [facility] Comment on above: Performed By: #### L [id number] ####Manufacturing Helper: MARY SOTELO ([phone])[facility] ([address] CBC W Auto Differential pane l (Bld)on 07-31-2024 Basophils (Bld) [#/Vol] 0.0 10*3/uL 0.0 - 0.2 10*3/uL [facility] Basophils/100 WBC (Bld) 0.1 % 0.0 - 2.0 % [facility] Eosinophils (Bld) [#/Vol] 0.0 10*3/uL 0.0 - 0.5 10*3/uL [facility] Eosinophils/100 WBC (Bld) 0.2 % 0.0 - 6.0 % [facility] Erythrocyte distribution width (RBC) [Ratio] 15.2 % High 11.5 - 15.0 % [facility] Hematocrit (Bld) [Volume fraction] 22.3 % Low 35.0 - 47.0 % [facility] Hemoglobin (Bld) [Mass/Vol] 7.1 g/dL Low 11.7 - 16.0 g/dL [facility] Immature granulocytes (Bld) [#/Vol] 0.0 10*3/uL NINF - 0.1 10*3/uL [facility] [employer] Immature granulocytes/100 WBC (Bld) 0.3 % 0.0 - 2.0 % [facility] Interpretation and review of laboratory results Abnormal [facility] Lymphocytes (Bld) [#/Vol] 0.6 10*3/uL Low 1.0 - 4.3 10*3/uL [facility] [employer] Lymphocytes/100 WBC (Bld) 4.7 % Low 15.0 - 45.0 % [facility] MCH (RBC) [Entitic mass] 29.6 pg 26.0 - 34.0 pg [facility] MCHC (RBC) [Mass/Vol] 31.8 % 30.5 - 36.0 % [facility] MCV (RBC) [Entitic vol] 92.9 fL 77.0 - 99.0 fL [facility] Monocytes (Bld) [#/Vol] 0.6 10*3/uL 0.0 - 0.9 10*3/uL [facility] [employer] Monocytes/100 WBC (Bld) 4.4 % Low 5.0 - 13.0 % [facility] Neutrophils (Bld) [#/Vol] 12.0 10*3/uL High 1.8 - 7.5 10*3/uL [facility] Neutrophils/100 WBC (Bld) 90.3 % High 38.0 - 82.0 % [facility] Nucleated RBC/100 WBC (Bld) [Ratio] 0.0 % [facility] Platelet mean volume (Bld) [Entitic vol] 10.7 fL 9.0 - 12.7 fL [facility] Platelets (Bld) [#/Vol] 146 10*3/uL 140 - 440 10*3/uL [facility] RBC (Bld) [#/Vol] 2.40 10*6/uL Low 3.80 - 5.2 0 10*6/uL [facility] WBC (Bld) [#/Vol] 13.3 10*3/uL High 3.6 - 10.7 10*3/uL [facility] CBC W Auto Differential pane l (Bld)Ordered By: Olamide Orozco on 07-31-2024 Basophils (Bld) [#/Vol] 0.0 10*3/uL 0.0 - 0.2 10*3/uL [facility] Basophils/100 WBC (Bld) 0.1 % 0.0 - 2.0 % [facility] Eosinophils (Bld) [#/Vol] 0.0 10*3/uL 0.0 - 0.5 10*3/uL [facility] Eosinophils/100 WBC (Bld) 0.2 % 0.0 - 6.0 % [facility] Erythrocyte distribution width (RBC) [Ratio] 15.1 % High 11.5 - 15.0 % [facility] Hematocrit (Bld) [Volume fraction] 22.9 % Low 35.0 - 47.0 % [facility] Hemoglobin (Bld) [Mass/Vol] 7.2 g/dL Low 11.7 - 16.0 g/dL [facility] Immature granulocytes (Bld) [#/Vol] 0.1 10*3/uL High NINF - 0.1 10*3/uL [facility] Immature granulocytes/100 WBC (Bld) 0.4 % 0.0 - 2.0 % [facility] Interpretation and review of laboratory results Abnormal [facility] [employer] Lymphocytes (Bld) [#/Vol] 0.5 10*3/uL Low 1.0 - 4.3 10*3/uL [facility] Lymphocytes/100 WBC (Bld) 3.6 % Low 15.0 - 45.0 % [facility] MCH (RBC) [Entitic mass] 28.9 pg 26.0 - 34.0 pg [facility] MCHC (RBC) [Mass/Vol] 31.4 % 30.5 - 36.0 % [facility] MCV (RBC) [Entitic vol] 92.0 fL 77.0 - 99.[address] [facility] [employer] Monocytes (Bld) [#/Vol] 0.3 10*3/uL 0.0 - 0.9 10*3/uL [facility] [employer] Monocytes/100 WBC (Bld) 2.0 % Low 5.0 - 13.0 % [facility] Neutrophils (Bld) [#/Vol] 13.2 10*3/uL High 1.8 - 7.5 10*3/uL [facility] [employer] Neutrophils/100 WBC (Bld) 93.7 % High 38.0 - 82.0 % [facility] [employer] Nucleated RBC/100 WBC (Bld) [Ratio] 0.0 % [facility] [employer] Platelet mean volume (Bld) [Entitic vol] 10.5 fL 9.0 - 12.[address] [facility] [employer] Platelets (Bld) [#/Vol] 135 10*3/uL Low 140 - 440 10*3/uL [facility] RBC (Bld) [#/Vol] 2.49 10*6/uL Low 3.80 - 5.2 0 10*6/uL [facility] WBC (Bld) [#/Vol] 14.0 10*3/uL High 3.6 - 10.7 10*3/uL [facility] CBC WITH AUTO DIFFERENTIALon 07-31-2024 Basophils (Bld) [#/Vol] 0.0 10*3/uL Normal 0.0-0.2 [facility] Comment on above: Performed By: #### L [id number] ####Manufacturing Helper: MARY SOTELO ([phone])[facility] ([address] Basophils/100 WBC (Bld) 0.1 % Normal 0.0-2.0 [facility] Comment on above: Performed By: #### L [id number] ####Manufacturing Helper: MARY SOTELO ([phone])[facility])[address] [place] [address] Eosinophils (Bld) [#/Vol] 0.0 10*3/uL Normal 0.0-0.5 [facility] Comment on above: Performed By: #### L [id number] ####Manufacturing Helper: MARY SOTELO ([phone])[facility])[address] [place] [address] Eosinophils/100 WBC (Bld) 0.2 % Normal 0.0-6.0 [facility] Comment on above: Performed By: #### L [id number] ####Manufacturing Helper: MARY SOTELO ([phone])[facility])[address] [place] [address] Erythrocyte distribution width (RBC) [Ratio] 15.2 % High 11.5-15.0 [facility] Comment on above: Performed By: #### L [id number] ####Manufacturing Helper: MARY SOTELO ([phone])[facility])[address] [place] [address] Hematocrit (Bld) [Volume fraction] 22.3 % Low 35.0-47.0 [facility] Comment on above: Performed By: #### L [id number] ####Manufacturing Helper: MARY SOTELO ([phone])[facility])[address] [place] [address] Hemoglobin (Bld) [Mass/Vol] 7.1 g/dL Low 11.7-16.0 [facility] Comment on above: Performed By: #### L [id number] ####Manufacturing Helper: MARY SOTELO ([phone])[facility])[address] [place] [address] IMMATURE GRANS % 0.3 % Normal 0.0-2.0 [facility] Comment on above: Performed By: #### L [id number] ####Manufacturing Helper: MARY SOTELO ([phone])[facility])[address] [place] [address] IMMATURE GRANS ABSOLUTE 0.0 10*3/uL Normal <0.1 [facility] Comment on above: Performed By: #### L [id number] ####Manufacturing Helper: MARY SOTELO ([phone])[facility])[address] [place] [address] Lymphocytes (Bld) [#/Vol] 0.6 10*3/uL Low 1.0-4.3 [facility] Comment on above: Performed By: #### L [id number] ####Manufacturing Helper: MARY SOTELO ([phone])[address] Lymphocytes/100 WBC (Bld) 4.7 % Low 15.0-45.0 [facility] Comment on above: Performed By: #### L [id number] ####Manufacturing Helper: MARY SOTELO ([phone])[facility])[address] [place] [address] MCH (RBC) [Entitic mass] 29.6 pg Normal 26.0-34.0 [facility] Comment on above: Performed By: #### L [id number] ####Manufacturing Helper: MARY SOTELO ([phone])[facility])[address] [place] [address] MCHC 31.8 % Normal 30.5-36.0 [facility] Comment on above: Performed By: #### L [id number] ####Manufacturing Helper: MARY SOTELO ([phone])[address] MCV (RBC) [Entitic vol] 92.9 fL Normal 77.0-99.0 [facility] Comment on above: Performed By: #### L [id number] ####Manufacturing Helper: MARY SOTELO ([phone])[facility] [place] [address] Monocytes (Bld) [#/Vol] 0.6 10*3/uL Normal 0.0-0.9 [facility] Comment on above: Performed By: #### L [id number] ####Manufacturing Helper: MARY SOTELO ([phone])[facility])[address] [place] [address] Monocytes/100 WBC (Bld) 4.4 % Low 5.0-13.0 [facility] Comment on above: Performed By: #### L [id number] ####Manufacturing Helper: MARY SOTELO ([phone])[facility])[address] [place] [address] NEUTROPHILS ABSOLUTE 12.0 10*3/uL High 1.8-7.5 [facility] Comment on above: Performed By: #### L [id number] ####Manufacturing Helper: MARY SOTELO ([phone])[facility] ([facility])[address] [place] [address] Neutrophils/100 WBC (Bld) 90.3 % High 38.0-82.0 [facility] Comment on above: Performed By: #### L [id number] ####Manufacturing Helper: MARY SOTELO ([phone])[facility])[address] [place] [address] NRBC 0.0 /100 WBCs Normal 0.0-2.0 [facility] Comment on above: Performed By: #### L [id number] ####Manufacturing Helper: MARY SOTELO ([phone])[facility] ([facility])[address] [place] [address] Platelet mean volume (Bld) [Entitic vol] 10.7 fL Normal 9.0-12.7 [facility] Comment on above: Performed By: #### L [id number] ####Manufacturing Helper: MARY SOTELO ([phone])[facility] ([facility])[address] [place] [address] Platelets (Bld) [#/Vol] 146 10*3/uL Normal 140-440 [facility] Comment on above: Performed By: #### L [id number] ####Manufacturing Helper: MARY SOTELO ([phone])[facility])[address] [place] [address] RBC (Bld) [#/Vol] 2.40 10*6/uL Low 3.80-5.20 [facility] Comment on above: Performed By: #### L [id number] ####Manufacturing Helper: MARY SOTELO ([phone])[facility])[address] [place] [address] WBC (Bld) [#/Vol] 13.3 10*3/uL High 3.6-10.7 [facility] Comment on above: Performed By: #### L [id number] ####Manufacturing Helper: MARY SOTELO ([phone])[facility])[address] [place] [address] Basophils (Bld) [#/Vol] 0.0 10*3/uL Normal 0.0-0.2 [facility] Comment on above: Performed By: #### L [id number] ####Manufacturing Helper: MARY SOTELO ([phone])[facility])[address] [place] [address] Basophils/100 WBC (Bld) 0.1 % Normal 0.0-2.0 [facility] Comment on above: Performed By: #### L [id number] ####Manufacturing Helper: MARY SOTELO ([phone])[facility])[address] [place] [address] Eosinophils (Bld) [#/Vol] 0.0 10*3/uL Normal 0.0-0.5 [facility] Comment on above: Performed By: #### L [id number] ####Manufacturing Helper: MARY SOTELO ([phone])[facility])[address] [place] [address] Eosinophils/100 WBC (Bld) 0.2 % Normal 0.0-6.0 [facility] Comment on above: Performed By: #### L [id number] ####Manufacturing Helper: MARY SOTELO ([phone])[address] Erythrocyte distribution width (RBC) [Ratio] 15.1 % High 11.5-15.0 [facility] Comment on above: Performed By: #### L [id number] ####Manufacturing Helper: MARY SOTELO ([phone])[address] Hematocrit (Bld) [Volume fraction] 22.9 % Low 35.0-47.0 [facility] Comment on above: Performed By: #### L [id number] ####Manufacturing Helper: MARY SOTELO ([phone])[address] Hemoglobin (Bld) [Mass/Vol] 7.2 g/dL Low 11.7-16.0 [facility] Comment on above: Performed By: #### L [id number] ####Manufacturing Helper: MARY SOTELO ([phone])[address] IMMATURE GRANS % 0.4 % Normal 0.0-2.0 [facility] Comment on above: Performed By: #### L [id number] ####Manufacturing Helper: MARY SOTELO ([phone])[address] IMMATURE GRANS ABSOLUTE 0.1 10*3/uL High <0.1 [facility] Comment on above: Performed By: #### L [id number] ####Manufacturing Helper: MARY SOTELO ([phone])[address] Lymphocytes (Bld) [#/Vol] 0.5 10*3/uL Low 1.0-4.3 [facility] Comment on above: Performed By: #### L [id number] ####Manufacturing Helper: MARY SOTELO ([phone])[facility])[address] [place] [address] Lymphocytes/100 WBC (Bld) 3.6 % Low 15.0-45.0 [facility] Comment on above: Performed By: #### L [id number] ####Manufacturing Helper: MARY SOTELO ([phone])[facility])[address] [place] [address] MCH (RBC) [Entitic mass] 28.9 pg Normal 26.0-34.0 [facility] Comment on above: Performed By: #### L [id number] ####Manufacturing Helper: MARY SOTELO ([phone])[facility])[address] [place] [address] MCHC 31.4 % Normal 30.5-36.0 [facility] Comment on above: Performed By: #### L [id number] ####Manufacturing Helper: MARY SOTELO ([phone])[facility])[address] [place] [address] MCV (RBC) [Entitic vol] 92.0 fL Normal 77.0-99.0 [facility] Comment on above: Performed By: #### L [id number] ####Manufacturing Helper: MARY SOTELO ([phone])[facility])[address] [place] [address] Monocytes (Bld) [#/Vol] 0.3 10*3/uL Normal 0.0-0.9 [facility] Comment on above: Performed By: #### L [id number] ####Manufacturing Helper: MARY SOTELO ([phone])[facility])[address] [place] [address] Monocytes/100 WBC (Bld) 2.0 % Low 5.0-13.0 [facility] Comment on above: Performed By: #### L [id number] ####Manufacturing Helper: MARY SOTELO ([phone])[facility])[address] [place] [address] NEUTROPHILS ABSOLUTE 13.2 10*3/uL High 1.8-7.5 [facility] Comment on above: Performed By: #### L [id number] ####Manufacturing Helper: MARY SOTELO ([phone])[facility] ([facility])[address] [place] [address] Neutrophils/100 WBC (Bld) 93.7 % High 38.0-82.0 [facility] Comment on above: Performed By: #### L [id number] ####Manufacturing Helper: MARY SOTELO ([phone])[facility] ([facility])[address] [place] [address] NRBC 0.0 /100 WBCs Normal 0.0-2.0 [facility] Comment on above: Performed By: #### L [id number] ####Manufacturing Helper: MARY SOTELO ([phone])[facility] ([facility])[address] [place] [address] Platelet mean volume (Bld) [Entitic vol] 10.5 fL Normal 9.0-12.7 [facility] Comment on above: Performed By: #### L [id number] ####Manufacturing Helper: MARY SOTELO ([phone])[facility] ([facility])[address] [place] [address] [place] Platelets (Bld) [#/Vol] 135 10*3/uL Low 140-440 [facility] Comment on above: Performed By: #### L [id number] ####Manufacturing Helper: MARY SOTELO ([phone])[facility] ([facility])[address] [place] [address] [place] RBC (Bld) [#/Vol] 2.49 10*6/uL Low 3.80-5.20 [facility] Comment on above: Performed By: #### L [id number] ####Manufacturing Helper: MARY SOTELO ([phone])[facility] ([facility])[address] [place] [address] [place] WBC (Bld) [#/Vol] 14.0 10*3/uL High 3.6-10.7 [facility] Comment on above: Performed By: #### L [id number] ####Manufacturing Helper: MARY SOTELO ([phone])[facility] ([address] CBC panel Auto (Bld)Ordered By: Akbar Warner on 07-31-2024 Erythrocyte distribution width (RBC) [Ratio] 15.2 % High 11.5 - 15.0 % [facility] Hematocrit (Bld) [Volume fraction] 21.6 % Low 35.0 - 47.0 % [facility] Hemoglobin (Bld) [Mass/Vol] 6.8 g/dL Critically low 11.7 - 16.0 g/dL [facility] Interpretation and review of laboratory results Abnormal [facility] MCH (RBC) [Entitic mass] 28.7 pg 26.0 - 34.0 pg [facility] MCHC (RBC) [Mass/Vol] 31.5 % 30.5 - 36.0 % [facility] MCV (RBC) [Entitic vol] 91.1 fL 77.0 - 99.0 fL [facility] Platelet mean volume (Bld) [Entitic vol] 10.9 fL 9.0 - 12.7 fL [facility] Platelets (Bld) [#/Vol] 158 10*3/uL 140 - 440 10*3/uL [facility] RBC (Bld) [#/Vol] 2.37 10*6/uL Low 3.80 - 5.2 0 10*6/uL [facility] WBC (Bld) [#/Vol] 15.0 10*3/uL High 3.6 - 10.7 10*3/uL [facility] Calcium.ionized [Moles/Vol]o n 07-31-2024 Calcium.ionized (Bld) [Moles/Vol] 4.70 mg/dL 4.30 - 5.20 mg/dL [facility] Interpretation and review of laboratory results Normal [facility] PH, IONIZED CALCIUM 7.31 7.31 - 7.46 [facility] Calcium.ionized (Bld) [Moles/Vol] 4.80 mg/dL 4.30 - 5.20 mg/dL [facility] Interpretation and review of laboratory results Normal [facility] PH, IONIZED CALCIUM 7.36 7.31 - 7.46 [facility] Calcium.ionized (Bld) [Moles/Vol] 4.90 mg/dL 4.30 - 5.20 mg/dL [facility] Interpretation and review of laboratory results Normal [facility] PH, IONIZED CALCIUM 7.35 7.31 - 7.46 [facility] Calcium.ionized (Bld) [Moles/Vol] 4.80 mg/dL 4.30 - 5.20 mg/dL [facility] Interpretation and review of laboratory results Normal [facility] PH, IONIZED CALCIUM 7.38 7.31 - 7.46 [facility] HEMOGLOBIN AND HEMATOCRIT, B LOODon 07-31-2024 Hematocrit (Bld) [Volume fraction] 25.4 % Low 35.0-47.0 [facility] Comment on above: Order Comment: Recom mend 1 hour post transfusion Performed By: #### L [id number] ####Manufacturing Helper: MARY SOTELO ([phone])[facility] ([facility])[address] [place] [address] Hemoglobin (Bld) [Mass/Vol] 8.0 g/dL Low 11.7-16.0 [facility] Comment on above: Order Comment: Recom mend 1 hour post transfusion Performed By: #### L [id number] ####Manufacturing Helper: MARY SOTELO ([phone])[facility] ([facility])[address] [place] [address] Hemoglobin (Bld) [Mass/Vol]o n 07-31-2024 Hematocrit (Bld) [Volume fraction] 25.4 % Low 35.0 - 47.0 % [facility] Interpretation and review of laboratory results Abnormal [facility] IDNon 07-31-2024 IDN Normal [facility] Laboratory - Chemistry and C hemistry - challengeon 07-31-2024 Glucose [Mass/Vol] 107 mg/dL High 70 - 100 mg/dL [facility] Glucose [Mass/Vol] 118 mg/dL High 70 - 100 mg/dL [facility] Glucose [Mass/Vol] 61 mg/dL Low 70 - 100 mg/dL [facility] Glucose [Mass/Vol] 127 mg/dL High 70 - 100 mg/dL [facility] Base excess Calc (Bld) [Moles/Vol] -0.9000 mmol/L -3.0 - 3.0 mmol/L [facility] CO2 (Bld) [Partial pressure] 47.9 mm[Hg] High - PINF [facility] CO2 [Moles/Vol] 26.4 mmol/L 23.0 - 27.0 mmol/L [facility] HCO3 (Bld) [Moles/Vol] 25.0 mmol/L 21.0 - 25.0 mmol/L [facility] Oxygen (Bld) [Partial pressure] 143.8 mm[Hg] High [facility] pH (Bld) 7.335 [pH] Low 7.350 - 7.450 [facility] Glucose [Mass/Vol] 177 mg/dL High 70 - 100 mg/dL [facility] Glucose [Mass/Vol] 237 mg/dL High 70 - 100 mg/dL [facility] Laboratory - Hematology and Cell countson 07-31-2024 Hemoglobin (Bld) [Mass/Vol] 8.0 g/dL Low 11.7 - 16.0 g/dL [facility] Hemoglobin (Bld) [Mass/Vol] 7.1 g/dL Screen only [facility] No Panel Informationon 07-31 Interpretation and review of laboratory results Abnormal [facility] Interpretation and review of laboratory results Abnormal [facility] Interpretation and review of laboratory results Abnormal [facility] Blood Expiration Date [id number] S [facility] Crossmatch interpretation COMP [facility] Dispense Status Transfused [facility] Product Blood Type 5100 [facility] PRODUCT CODE [id number] [facility] ABO O [facility] Unit Number [id number] [facility] alth Unit RH Positive [facility] Unit Volume 300 mL [facility] Interpretation and review of laboratory results Abnormal [facility] Interpretation and review of laboratory results Abnormal [facility] Source Of Oxygen Nasal cannula [facility] Interpretation and review of laboratory results Abnormal [facility] Interpretation and review of laboratory results Abnormal [facility] Progress Noteon 07-31-2024 Progress Note Normal [facility] Progress Note Normal [facility] Progress Note Normal [facility] RENAL FUNCTION PANELon 07-31 Albumin [Mass/Vol] 1.9 g/dL Low 3.5-5.0 [facility] Comment on above: Performed By: #### L [id number] ####Manufacturing Helper: MARY SOTELO ([phone])[facility] [place] [address] Anion gap [Moles/Vol] 1 mmol/L Low 3-13 [facility] Comment on above: Performed By: #### L AB19 ####Manufacturing Helper: MARY SOTELO ([phone])[facility] ([facility])[address] [place] [address] Calcium [Mass/Vol] 8.2 mg/dL Low 8.4-10.4 [facility] Comment on above: Performed By: #### L AB19 ####Manufacturing Helper: MARY SOTELO ([phone])[facility] [place] [address] Chloride [Moles/Vol] 104 mmol/L Normal 98-107 [facility] Comment on above: Performed By: #### L AB19 ####Manufacturing Helper: MARY SOTELO ([phone])[facility] ([facility])[address] [place] [address] CO2 [Moles/Vol] 25 mmol/L Normal 22-30 [facility] Comment on above: Performed By: #### L AB19 ####Manufacturing Helper: MARY SOTELO ([phone])[facility] ([facility])[address] [place] [address] Creatinine [Mass/Vol] 0.81 mg/dL Normal 0.52-1.04 [facility] Comment on above: Performed By: #### L AB19 ####Manufacturing Helper: MARY SOTELO ([phone])[facility] [place] [address] [place] GLOMERULAR FILTRATION RATE ML/MIN/1.73 SQ M.PREDICTED 81.2 mL/min/1.73m*2 Normal >60.0 [facility] Comment on above: Result Comment: Calc ulation based on the Chronic Kidney Disease Epidemiology Collaboration (CKD-EPI) equation refit without adjustment for race Performed By: #### L AB19 ####Manufacturing Helper: MARY SOTELO ([phone])[facility] ([facility])[address] [place] [address] Glucose [Mass/Vol] 173 mg/dL High 70-100 [facility] Comment on above: Performed By: #### L AB19 ####Manufacturing Helper: MARY SOTELO ([phone])[facility] ([facility])[address] [place] [address] Phosphate [Mass/Vol] 3.1 mg/dL Normal 2.5-4.5 [facility] Comment on above: Performed By: #### L AB19 ####Manufacturing Helper: MARY SOTELO ([phone])[facility] ([facility])[address] [place] [address] [place] Potassium [Moles/Vol] 3.9 mmol/L Normal 3.5-5.1 [facility] Comment on above: Performed By: #### L AB19 ####Manufacturing Helper: MARY SOTELO ([phone])[facility] ([facility])[address] [place] [address] Sodium [Moles/Vol] 130 mmol/L Low 135-145 [facility] Comment on above: Performed By: #### L AB19 ####Manufacturing Helper: MARY SOTELO ([phone])[facility])[address] [place] [address] [place] Urea nitrogen [Mass/Vol] 16 mg/dL Normal 7-17 [facility] Comment on above: Performed By: #### L AB19 ####Manufacturing Helper: MARY SOTELO ([phone])[facility])[address] [place] [address] [place] Albumin [Mass/Vol] 1.9 g/dL Low 3.5-5.0 [facility] Comment on above: Performed By: #### L [id number] ####Manufacturing Helper: MARY SOTELO ([phone])[facility] [place] [address] Anion gap [Moles/Vol] 2 mmol/L Low 3-13 [facility] Comment on above: Performed By: #### L AB19 ####Manufacturing Helper: MARY SOTELO ([phone])[facility] ([facility])[address] [place] [address] Calcium [Mass/Vol] 8.7 mg/dL Normal 8.4-10.4 [facility] Comment on above: Performed By: #### L AB19 ####Manufacturing Helper: MARY SOTELO ([phone])[facility] ([facility])[address] [place] [address] Chloride [Moles/Vol] 105 mmol/L Normal 98-107 [facility] Comment on above: Performed By: #### L AB19 ####Manufacturing Helper: MARY SOTELO ([phone])[facility] [place] [address] CO2 [Moles/Vol] 25 mmol/L Normal 22-30 [facility] Comment on above: Performed By: #### L AB19 ####Manufacturing Helper: MARY SOTELO ([phone])[facility] ([facility])[address] [place] [address] Creatinine [Mass/Vol] 0.89 mg/dL Normal 0.52-1.04 [facility] Comment on above: Performed By: #### L AB19 ####Manufacturing Helper: MARY SOTELO ([phone])[facility] ([facility])[address] [place] [address] [place] GLOMERULAR FILTRATION RATE ML/MIN/1.73 SQ M.PREDICTED 72.5 mL/min/1.73m*2 Normal >60.0 [facility] Comment on above: Result Comment: Calc ulation based on the Chronic Kidney Disease Epidemiology Collaboration (CKD-EPI) equation refit without adjustment for race Performed By: #### L AB19 ####Manufacturing Helper: MARY SOTELO ([phone])[facility] [place] [address] [place] Glucose [Mass/Vol] 104 mg/dL High 70-100 [facility] Comment on above: Performed By: #### L AB19 ####Manufacturing Helper: MARY SOTELO ([phone])[facility] [place] [address] [place] Phosphate [Mass/Vol] 3.2 mg/dL Normal 2.5-4.5 [facility] Comment on above: Performed By: #### L AB19 ####Manufacturing Helper: MARY SOTELO ([phone])[facility] [place] [address] Potassium [Moles/Vol] 3.7 mmol/L Normal 3.5-5.1 [facility] Comment on above: Performed By: #### L AB19 ####Manufacturing Helper: MARY SOTELO ([phone])[facility] [place] [address] [place] Sodium [Moles/Vol] 132 mmol/L Low 135-145 [facility] Comment on above: Performed By: #### L AB19 ####Manufacturing Helper: MARY SOTELO ([phone])[facility] ([facility])[address] [place] [address] [place] Urea nitrogen [Mass/Vol] 19 mg/dL High 7-17 [facility] Comment on above: Performed By: #### L AB19 ####Manufacturing Helper: MARY SOTELO ([phone])[facility] [place] [address] [place] Albumin [Mass/Vol] 2.1 g/dL Low 3.5-5.0 [facility] Comment on above: Performed By: #### L AB19 ####Manufacturing Helper: MARY SOTELO ([phone])[facility] [place] [address] [place] Anion gap [Moles/Vol] 3 mmol/L Normal 3-13 [facility] Comment on above: Performed By: #### L AB19 ####Manufacturing Helper: MARY SOTELO ([phone])[facility] ([facility])[address] [place] [address] Calcium [Mass/Vol] 8.7 mg/dL Normal 8.4-10.4 [facility] Comment on above: Performed By: #### L AB19 ####Manufacturing Helper: MARY SOTELO ([phone])[facility] [place] [address] [place] Chloride [Moles/Vol] 105 mmol/L Normal 98-107 [facility] Comment on above: Performed By: #### L AB19 ####Manufacturing Helper: MARY SOTELO ([phone])[facility] ([facility])[address] [place] [address] CO2 [Moles/Vol] 24 mmol/L Normal 22-30 [facility] Comment on above: Performed By: #### L AB19 ####Manufacturing Helper: MARY SOTELO ([phone])[facility] ([facility])[address] [place] [address] Creatinine [Mass/Vol] 0.91 mg/dL Normal 0.52-1.04 [facility] Comment on above: Performed By: #### L AB19 ####Manufacturing Helper: MARY SOTELO ([phone])[facility] ([facility])[address] [place] [address] [place] GLOMERULAR FILTRATION RATE ML/MIN/1.73 SQ M.PREDICTED 70.6 mL/min/1.73m*2 Normal >60.0 [facility] Comment on above: Result Comment: Calc ulation based on the Chronic Kidney Disease Epidemiology Collaboration (CKD-EPI) equation refit without adjustment for race Performed By: #### L AB19 ####Manufacturing Helper: MARY SOTELO ([phone])[facility] ([facility])[address] [place] [address] [place] Glucose [Mass/Vol] 161 mg/dL High 70-100 [facility] Comment on above: Performed By: #### L AB19 ####Manufacturing Helper: MARY SOTELO ([phone])[facility] ([facility])[address] [place] [address] [place] Phosphate [Mass/Vol] 3.8 mg/dL Normal 2.5-4.5 [facility] Comment on above: Performed By: #### L AB19 ####Manufacturing Helper: MARY SOTELO ([phone])[facility] [place] [address] [place] Potassium [Moles/Vol] 4.2 mmol/L Normal 3.5-5.1 [facility] Comment on above: Performed By: #### L AB19 ####Manufacturing Helper: MARY SOTELO ([phone])[facility])[address] Sodium [Moles/Vol] 131 mmol/L Low 135-145 [facility] Comment on above: Performed By: #### L AB19 ####Manufacturing Helper: MARY SOTELO ([phone])[facility] [place] [address] [place] Urea nitrogen [Mass/Vol] 22 mg/dL High 7-17 [facility] Comment on above: Performed By: #### L AB19 ####Manufacturing Helper: MARY SOTELO ([phone])[facility] [place] [address] Albumin [Mass/Vol] 2.2 g/dL Low 3.5-5.0 [facility] Comment on above: Performed By: #### L AB19 ####Manufacturing Helper: MARY SOTELO ([phone])[facility] [place] [address] [place] Anion gap [Moles/Vol] 3 mmol/L Normal 3-13 [facility] Comment on above: Performed By: #### L AB19 ####Manufacturing Helper: MARY SOTELO ([phone])[facility] [place] [address] [place] Calcium [Mass/Vol] 8.7 mg/dL Normal 8.4-10.4 [facility] Comment on above: Performed By: #### L AB19 ####Manufacturing Helper: MARY SOTELO ([phone])[facility] ([facility])[address] [place] [address] Chloride [Moles/Vol] 105 mmol/L Normal 98-107 [facility] Comment on above: Performed By: #### L AB19 ####Manufacturing Helper: MARY SOTELO ([phone])[facility] [place] [address] CO2 [Moles/Vol] 24 mmol/L Normal 22-30 [facility] Comment on above: Performed By: #### L AB19 ####Manufacturing Helper: MARY SOTELO ([phone])[facility] [place] [address] Creatinine [Mass/Vol] 0.98 mg/dL Normal 0.52-1.04 [facility] Comment on above: Performed By: #### L AB19 ####Manufacturing Helper: MARY SOTELO ([phone])[facility] ([facility])[address] [place] [address] [place] GLOMERULAR FILTRATION RATE ML/MIN/1.73 SQ M.PREDICTED 64.6 mL/min/1.73m*2 Normal >60.0 [facility] Comment on above: Result Comment: Calc ulation based on the Chronic Kidney Disease Epidemiology Collaboration (CKD-EPI) equation refit without adjustment for race Performed By: #### L AB19 ####Manufacturing Helper: MARY SOTELO ([phone])[facility] [place] [address] [place] Glucose [Mass/Vol] 229 mg/dL High 70-100 [facility] Comment on above: Performed By: #### L AB19 ####Manufacturing Helper: MARY SOTELO ([phone])[facility] [place] [address] [place] Phosphate [Mass/Vol] 4.0 mg/dL Normal 2.5-4.5 [facility] Comment on above: Performed By: #### L AB19 ####Manufacturing Helper: MARY SOTELO ([phone])[facility] ([facility])[address] [place] [address] Potassium [Moles/Vol] 4.5 mmol/L Normal 3.5-5.1 [facility] Comment on above: Performed By: #### L AB19 ####Manufacturing Helper: MARY SOTELO ([phone])[facility] ([facility])[address] [place] [address] Sodium [Moles/Vol] 132 mmol/L Low 135-145 [facility] Comment on above: Performed By: #### L AB19 ####Manufacturing Helper: MARY SOTELO ([phone])[facility] ([facility])[address] [place] [address] Urea nitrogen [Mass/Vol] 24 mg/dL High 7-17 [facility] Comment on above: Performed By: #### L AB19 ####Manufacturing Helper: MARY SOTELO ([phone])[facility] ([facility])[address] [place] [address] Renal function 2000 panelon 07-31-2024 Albumin [Mass/Vol] 1.9 g/dL Low 3.5 - 5.0 g/dL [facility] Anion gap [Moles/Vol] 1 mmol/L Low 3 - 13 mmol/L [facility] Calcium [Mass/Vol] 8.2 mg/dL Low 8.4 - 10. 4 mg/dL [facility] Chloride [Moles/Vol] 104 mmol/L 98 - 10 7 mmol/L [facility] CO2 [Moles/Vol] 25 mmol/L 22 - 30 mmol/L [facility] Creatinine [Mass/Vol] 0.81 mg/dL 0.52 - 1.04 mg/dL [facility] GFR/1.73 sq M.predicted (S/P/Bld) [Vol rate/Area] 81.2 mL/min - PINF [facility] Glucose [Mass/Vol] 173 mg/dL High 70 - 100 mg/dL [facility] Interpretation and review of laboratory results Abnormal [facility] Phosphate [Mass/Vol] 3.1 mg/dL 2.5 - 4 .5 mg/dL [facility] Potassium [Moles/Vol] 3.9 mmol/L 3.5 - 5.1 mmol/L [facility] Sodium [Moles/Vol] 130 mmol/L Low 135 - 145 mmol/L [facility] Urea nitrogen [Mass/Vol] 16 mg/dL 7 - 17 mg/dL [facility] Albumin [Mass/Vol] 1.9 g/dL Low 3.5 - 5.0 g/dL [facility] Anion gap [Moles/Vol] 2 mmol/L Low 3 - 13 mmol/L [facility] Calcium [Mass/Vol] 8.7 mg/dL 8.4 - 10. 4 mg/dL [facility] Chloride [Moles/Vol] 105 mmol/L 98 - 10 7 mmol/L [facility] CO2 [Moles/Vol] 25 mmol/L 22 - 30 mmol/L [facility] Creatinine [Mass/Vol] 0.89 mg/dL 0.52 - 1.04 mg/dL [facility] GFR/1.73 sq M.predicted (S/P/Bld) [Vol rate/Area] 72.5 mL/min - PINF [facility] Glucose [Mass/Vol] 104 mg/dL High 70 - 100 mg/dL [facility] Interpretation and review of laboratory results Abnormal [facility] Phosphate [Mass/Vol] 3.2 mg/dL 2.5 - 4 .5 mg/dL [facility] Potassium [Moles/Vol] 3.7 mmol/L 3.5 - 5.1 mmol/L [facility] Sodium [Moles/Vol] 132 mmol/L Low 135 - 145 mmol/L [facility] Urea nitrogen [Mass/Vol] 19 mg/dL High 7 - 17 mg/dL [facility] Albumin [Mass/Vol] 2.1 g/dL Low 3.5 - 5.0 g/dL [facility] Anion gap [Moles/Vol] 3 mmol/L 3 - 13 mmol/L [facility] Calcium [Mass/Vol] 8.7 mg/dL 8.4 - 10. 4 mg/dL [facility] Chloride [Moles/Vol] 105 mmol/L 98 - 10 7 mmol/L [facility] CO2 [Moles/Vol] 24 mmol/L 22 - 30 mmol/L [facility] Creatinine [Mass/Vol] 0.91 mg/dL 0.52 - 1.04 mg/dL [facility] GFR/1.73 sq M.predicted (S/P/Bld) [Vol rate/Area] 70.6 mL/min - PINF [facility] Glucose [Mass/Vol] 161 mg/dL High 70 - 100 mg/dL [facility] Interpretation and review of laboratory results Abnormal [facility] Phosphate [Mass/Vol] 3.8 mg/dL 2.5 - 4 .5 mg/dL [facility] Potassium [Moles/Vol] 4.2 mmol/L 3.5 - 5.1 mmol/L [facility] Sodium [Moles/Vol] 131 mmol/L Low 135 - 145 mmol/L [facility] Urea nitrogen [Mass/Vol] 22 mg/dL High 7 - 17 mg/dL [facility] Albumin [Mass/Vol] 2.2 g/dL Low 3.5 - 5.0 g/dL [facility] Anion gap [Moles/Vol] 3 mmol/L 3 - 13 mmol/L [facility] Calcium [Mass/Vol] 8.7 mg/dL 8.4 - 10. 4 mg/dL [facility] Chloride [Moles/Vol] 105 mmol/L 98 - 10 7 mmol/L [facility] CO2 [Moles/Vol] 24 mmol/L 22 - 30 mmol/L [facility] Creatinine [Mass/Vol] 0.98 mg/dL 0.52 - 1.04 mg/dL [facility] GFR/1.73 sq M.predicted (S/P/Bld) [Vol rate/Area] 64.6 mL/min - PINF [facility] Glucose [Mass/Vol] 229 mg/dL High 70 - 100 mg/dL [facility] Interpretation and review of laboratory results Abnormal [facility] Phosphate [Mass/Vol] 4.0 mg/dL 2.5 - 4 .5 mg/dL [facility] Potassium [Moles/Vol] 4.5 mmol/L 3.5 - 5.1 mmol/L [facility] Sodium [Moles/Vol] 132 mmol/L Low 135 - 145 mmol/L [facility] Urea nitrogen [Mass/Vol] 24 mg/dL High 7 - 17 mg/dL [facility] BLOOD GAS ARTERIALon 024 Base excess Calc (Bld) [Moles/Vol] 1.9 mmol/L Normal -3.0-3.0 [facility] Comment on above: Performed By: #### L [id number] ####Manufacturing Helper: MARY SOTELO ([phone])[facility] ([facility])[address] [place] [address] CO2 [Moles/Vol] 28.3 mmol/L High 23.0-27.0 [facility] Comment on above: Performed By: #### L AB76 ####Manufacturing Helper: MARY SOTELO ([phone])[facility] ([facility])[address] [place] [address] HCO3 (Bld) [Moles/Vol] 26.9 mmol/L High 21.0-25.0 [facility] Comment on above: Performed By: #### L AB76 ####Manufacturing Helper: MARY SOTELO ([phone])[facility] ([facility])[address] [place] [address] Hemoglobin (Bld) [Mass/Vol] 7.7 g/dL Normal Screen only [facility] Comment on above: Performed By: #### L AB76 ####Manufacturing Helper: MARY SOTELO ([phone])[facility] ([facility])[address] [place] [address] OXYGEN SATURATION (%) IN ARTERIAL BLOOD 97.9 % Normal 95.0-100.0 [facility] Comment on above: Performed By: #### L AB76 ####Manufacturing Helper: MARY SOTELO ([phone])[facility] ([facility])[address] [place] [address] PCO2 ARTERIAL 44.6 mm Hg Normal >35.0-<45.0 [facility] Comment on above: Performed By: #### L AB76 ####Manufacturing Helper: MARY SOTELO ([phone])[facility] ([facility])[address] [place] [address] PH ARTERIAL 7.399 Normal 7.350-7.450 [facility] Comment on above: Performed By: #### L AB76 ####Manufacturing Helper: MARY SOTELO ([phone])[facility] ([facility])[address] [place] [address] PO2 ARTERIAL 113.8 mm Hg High 80.0-100.0 [facility] Comment on above: Performed By: #### L AB76 ####Manufacturing Helper: MARY SOTELO ([phone])[facility] ([facility])[address] [place] [address] SOURCE OF OXYGEN 30% Oxygen Normal [facility] Comment on above: Result Comment: lon llator Performed By: #### L [id number] ####Manufacturing Helper: MARY SOTELO ([phone])[facility] ([facility])[address] [place] [address] Base excess Calc (Bld) [Moles/Vol] 0.7 mmol/L Normal -3.0-3.0 [facility] Comment on above: Performed By: #### L [id number] ####Manufacturing Helper: MARY SOTELO ([phone])[facility] ([facility])[address] [place] [address] CO2 [Moles/Vol] 27.6 mmol/L High 23.0-27.0 [facility] Comment on above: Performed By: #### L [id number] ####Manufacturing Helper: MARY SOTELO ([phone])[facility] ([facility])[address] [place] [address] HCO3 (Bld) [Moles/Vol] 26.2 mmol/L High 21.0-25.0 [facility] Comment on above: Performed By: #### L [id number] ####Manufacturing Helper: MARY SOTELO ([phone])[facility] ([facility])[address] [place] [address] Hemoglobin (Bld) [Mass/Vol] 7.9 g/dL Normal Screen only [facility] Comment on above: Performed By: #### L [id number] ####Manufacturing Helper: MARY SOTELO ([phone])[facility] ([facility])[address] [place] [address] OXYGEN SATURATION (%) IN ARTERIAL BLOOD 97.2 % Normal 95.0-100.0 [facility] Comment on above: Performed By: #### L [id number] ####Manufacturing Helper: MARY SOTELO ([phone])[facility] ([facility])[address] [place] [address] PCO2 ARTERIAL 46.3 mm Hg High >35.0-<45.0 [facility] Comment on above: Performed By: #### L [id number] ####Manufacturing Helper: MARY SOTELO ([phone])[facility] ([facility])[address] [place] [address] PH ARTERIAL 7.370 Normal 7.350-7.450 [facility] Comment on above: Performed By: #### L [id number] ####Manufacturing Helper: MARY SOTELO ([phone])[facility] ([facility])[address] [place] [address] PO2 ARTERIAL 114.1 mm Hg High 80.0-100.0 [facility] Comment on above: Performed By: #### L [id number] ####Manufacturing Helper: MARY SOTELO ([phone])[facility] ([facility])[address] [place] [address] SOURCE OF OXYGEN Vent Normal [facility] Comment on above: Performed By: #### L [id number] ####Manufacturing Helper: MARY SOTELO ([phone])[facility] ([facility])[address] [place] [address] CALCIUM, IONIZEDon 4 CALCIUM IONIZED 4.90 mg/dL Normal 4.30-5.20 [facility] Comment on above: Performed By: #### L [id number] ####Manufacturing Helper: MARY SOTELO ([phone])[facility] ([facility])[address] [place] [address] PH, IONIZED CALCIUM 7.34 Normal 7.31-7.46 [facility] Comment on above: Performed By: #### L AB54 ####Manufacturing Helper: MARY SOTELO ([phone])[facility])[address] [place] [address] [place] CALCIUM IONIZED 4.20 mg/dL Low 4.30-5.20 [facility] Comment on above: Performed By: #### L AB54 ####Manufacturing Helper: MARY SOTELO ([phone])[facility] ([facility])[address] [place] [address] PH, IONIZED CALCIUM 7.43 Normal 7.31-7.46 [facility] Comment on above: Performed By: #### L AB54 ####Manufacturing Helper: MARY SOTELO ([phone])[facility])[address] [place] [address] CALCIUM IONIZED 4.10 mg/dL Low 4.30-5.20 [facility] Comment on above: Performed By: #### L AB54 ####Manufacturing Helper: MARY SOTELO ([phone])[facility])[address] [place] [address] PH, IONIZED CALCIUM 7.42 Normal 7.31-7.46 [facility] Comment on above: Performed By: #### L AB54 ####Manufacturing Helper: MARY SOTELO ([phone])[facility])[address] [place] [address] CALCIUM IONIZED 4.30 mg/dL Normal 4.30-5.20 [facility] Comment on above: Performed By: #### L AB54 ####Manufacturing Helper: MARY SOTELO ([phone])[facility])[address] [place] [address] PH, IONIZED CALCIUM 7.37 Normal 7.31-7.46 [facility] Comment on above: Performed By: #### L AB54 ####Manufacturing Helper: MARY SOTELO ([phone])[facility])[address] [place] [address] [place] CARECOORDon 07-30-2024 CARECOORD Normal [facility] CBC WITH AUTO DIFFERENTIALon 07-30-2024 Basophils (Bld) [#/Vol] 0.0 10*3/uL Normal 0.0-0.2 [facility] Comment on above: Performed By: #### L [id number] ####Manufacturing Helper: MARY SOTELO ([phone])[facility])[address] [place] [address] Basophils/100 WBC (Bld) 0.0 % Normal 0.0-2.0 [facility] Comment on above: Performed By: #### L [id number] ####Manufacturing Helper: MARY SOTELO ([phone])[facility])[address] [place] [address] Eosinophils (Bld) [#/Vol] 0.0 10*3/uL Normal 0.0-0.5 [facility] Comment on above: Performed By: #### L [id number] ####Manufacturing Helper: MARY SOTELO ([phone])[facility])[address] [place] [address] Eosinophils/100 WBC (Bld) 0.0 % Normal 0.0-6.0 [facility] Comment on above: Performed By: #### L [id number] ####Manufacturing Helper: MARY SOTELO ([phone])[facility])[address] [place] [address] Erythrocyte distribution width (RBC) [Ratio] 15.5 % High 11.5-15.0 [facility] Comment on above: Performed By: #### L [id number] ####Manufacturing Helper: MARY SOTELO ([phone])[facility])[address] [place] [address] Hematocrit (Bld) [Volume fraction] 23.0 % Low 35.0-47.0 [facility] Comment on above: Performed By: #### L [id number] ####Manufacturing Helper: MARY SOTELO ([phone])[facility])[address] [place] [address] Hemoglobin (Bld) [Mass/Vol] 7.3 g/dL Low 11.7-16.0 [facility] Comment on above: Performed By: #### L [id number] ####Manufacturing Helper: MARY SOTELO ([phone])[facility])[address] [place] [address] IMMATURE GRANS % 0.4 % Normal 0.0-2.0 [facility] Comment on above: Performed By: #### L [id number] ####Manufacturing Helper: MARY SOTELO ([phone])[facility])[address] [place] [address] IMMATURE GRANS ABSOLUTE 0.1 10*3/uL High <0.1 [facility] Comment on above: Performed By: #### L [id number] ####Manufacturing Helper: MARY SOTELO ([phone])[facility])[address] [place] [address] Lymphocytes (Bld) [#/Vol] 0.6 10*3/uL Low 1.0-4.3 [facility] Comment on above: Performed By: #### L [id number] ####Manufacturing Helper: MARY SOTELO ([phone])[facility])[address] [place] [address] Lymphocytes/100 WBC (Bld) 4.3 % Low 15.0-45.0 [facility] Comment on above: Performed By: #### L [id number] ####Manufacturing Helper: MARY SOTELO ([phone])[facility])[address] [place] [address] MCH (RBC) [Entitic mass] 28.6 pg Normal 26.0-34.0 [facility] Comment on above: Performed By: #### L [id number] ####Manufacturing Helper: MARY SOTELO ([phone])[facility])[address] [place] [address] MCHC 31.7 % Normal 30.5-36.0 [facility] Comment on above: Performed By: #### L [id number] ####Manufacturing Helper: MARY SOTELO ([phone])[facility])[address] [place] [address] MCV (RBC) [Entitic vol] 90.2 fL Normal 77.0-99.0 [facility] Comment on above: Performed By: #### L [id number] ####Manufacturing Helper: MARY SOTELO ([phone])[facility])[address] [place] [address] Monocytes (Bld) [#/Vol] 0.6 10*3/uL Normal 0.0-0.9 [facility] Comment on above: Performed By: #### L [id number] ####Manufacturing Helper: MARY SOTELO ([phone])[facility])[address] [place] [address] Monocytes/100 WBC (Bld) 4.4 % Low 5.0-13.0 [facility] Comment on above: Performed By: #### L [id number] ####Manufacturing Helper: MARY SOTELO ([phone])[facility] ([facility])[address] [place] [address] NEUTROPHILS ABSOLUTE 12.3 10*3/uL High 1.8-7.5 [facility] Comment on above: Performed By: #### L [id number] ####Manufacturing Helper: MARY SOTELO ([phone])[facility])[address] [place] [address] Neutrophils/100 WBC (Bld) 90.9 % High 38.0-82.0 [facility] Comment on above: Performed By: #### L [id number] ####Manufacturing Helper: MARY SOTELO ([phone])[facility] ([facility])[address] [place] [address] NRBC 0.0 /100 WBCs Normal 0.0-2.0 [facility] Comment on above: Performed By: #### L [id number] ####Manufacturing Helper: MARY SOTELO ([phone])[facility])[address] [place] [address] Platelet mean volume (Bld) [Entitic vol] 10.5 fL Normal 9.0-12.7 [facility] Comment on above: Performed By: #### L [id number] ####Manufacturing Helper: MARY SOTELO ([phone])[facility] ([facility])[address] [place] [address] Platelets (Bld) [#/Vol] 161 10*3/uL Normal 140-440 [facility] Comment on above: Performed By: #### L [id number] ####Manufacturing Helper: MARY SOTELO ([phone])[facility] ([facility])[address] [place] [address] RBC (Bld) [#/Vol] 2.55 10*6/uL Low 3.80-5.20 [facility] Comment on above: Performed By: #### L [id number] ####Manufacturing Helper: MARY SOTELO ([phone])[facility] ([facility])[address] [place] [address] WBC (Bld) [#/Vol] 13.6 10*3/uL High 3.6-10.7 [facility] Comment on above: Performed By: #### L [id number] ####Manufacturing Helper: MARY SOTELO ([phone])[facility] ([facility])[address] [place] [address] IDNon 07-30-2024 IDN Normal [facility] Laboratory - Chemistry and C hemistry - challengeon 07-30-2024 Glucose [Mass/Vol] 165 mg/dL High 70 - 100 mg/dL [facility] No Panel Informationon 07-30 Interpretation and review of laboratory results Abnormal [facility] Nursing Noteon 07-30-2024 Nursing Note Patient pulled out O G tube. Also pulled out ET tube a couple centimeters. . Respiratory therapist advanced ET tube. OG tube place to 55cm. Will get Xray. Restarted Fentanyl. Precedex maxed. Normal [facility] Nursing Note Patient got ahold of suction tubing on ET tube. Pulled her ET tube out a couple centimeters. Respiratory therapist notified. Normal [facility] Progress Noteon 07-30-2024 Progress Note Normal [facility] Progress Note Normal [facility] Progress Note Normal [facility] Progress Note Normal [facility] Progress Note PHYSICAL THERAPY [facility] Name/MRN: Sandy Deng ([id number]) Date: 07/30/2024 Screen Note. Pt remains intubated and sedated with orders for strict bed rest. Will continue to follow and re-attempt as able. Jennifer Saldaña, SPT Normal [facility] Progress Note Normal [facility] RENAL FUNCTION PANELon 07-30 Albumin [Mass/Vol] 2.0 g/dL Low 3.5-5.0 [facility] Comment on above: Performed By: #### L [id number] ####Manufacturing Helper: MARY SOTELO ([phone])[facility])[address] [place] [address] Anion gap [Moles/Vol] 0 mmol/L Low 3-13 [facility] Comment on above: Performed By: #### L [id number] ####Manufacturing Helper: MARY SOTELO ([phone])[facility])[address] [place] [address] Calcium [Mass/Vol] 8.7 mg/dL Normal 8.4-10.4 [facility] Comment on above: Performed By: #### L [id number] ####Manufacturing Helper: MARY SOTELO ([phone])[facility] ([facility])[address] [place] [address] [place] Chloride [Moles/Vol] 104 mmol/L Normal 98-107 [facility] Comment on above: Performed By: #### L [id number] ####Manufacturing Helper: MARY SOTELO ([phone])[facility] ([facility])[address] [place] [address] CO2 [Moles/Vol] 28 mmol/L Normal 22-30 [facility] Comment on above: Performed By: #### L [id number] ####Manufacturing Helper: MARY SOTELO ([phone])[facility])[address] [place] [address] Creatinine [Mass/Vol] 0.98 mg/dL Normal 0.52-1.04 [facility] Comment on above: Performed By: #### L [id number] ####Manufacturing Helper: MARY SOTELO ([phone])[facility] ([facility])[address] [place] [address] GLOMERULAR FILTRATION RATE ML/MIN/1.73 SQ M.PREDICTED 64.6 mL/min/1.73m*2 Normal >60.0 [facility] Comment on above: Result Comment: Calc ulation based on the Chronic Kidney Disease Epidemiology Collaboration (CKD-EPI) equation refit without adjustment for race Performed By: #### L [id number] ####Manufacturing Helper: MARY SOTELO ([phone])[facility] ([facility])[address] [place] [address] Glucose [Mass/Vol] 114 mg/dL High 70-100 [facility] Comment on above: Performed By: #### L [id number] ####Manufacturing Helper: MARY SOTELO ([phone])[facility] ([facility])[address] [place] [address] Phosphate [Mass/Vol] 3.7 mg/dL Normal 2.5-4.5 [facility] Comment on above: Performed By: #### L [id number] ####Manufacturing Helper: MARY SOTELO ([phone])[facility] ([facility])[address] [place] [address] [place] Potassium [Moles/Vol] 4.5 mmol/L Normal 3.5-5.1 [facility] Comment on above: Performed By: #### L [id number] ####Manufacturing Helper: MARY SOTELO ([phone])[facility] ([facility])[address] [place] [address] [place] Sodium [Moles/Vol] 132 mmol/L Low 135-145 [facility] Comment on above: Performed By: #### L [id number] ####Manufacturing Helper: MARY SOTELO ([phone])[facility] ([facility])[address] [place] [address] [place] Urea nitrogen [Mass/Vol] 24 mg/dL High 7-17 [facility] Comment on above: Performed By: #### L [id number] ####Manufacturing Helper: MARY SOTELO ([phone])[facility] ([facility])[address] [place] [address] Albumin [Mass/Vol] 2.0 g/dL Low 3.5-5.0 [facility] Comment on above: Performed By: #### L [id number] ####Manufacturing Helper: MARY SOTELO ([phone])[facility] ([facility])[address] [place] [address] Anion gap [Moles/Vol] 1 mmol/L Low 3-13 [facility] Comment on above: Performed By: #### L [id number] ####Manufacturing Helper: MARY SOTELO ([phone])[facility] ([facility])[address] [place] [address] Calcium [Mass/Vol] 7.7 mg/dL Low 8.4-10.4 [facility] Comment on above: Performed By: #### L [id number] ####Manufacturing Helper: MARY SOTELO ([phone])[facility] ([facility])[address] [place] [address] Chloride [Moles/Vol] 104 mmol/L Normal 98-107 [facility] Comment on above: Performed By: #### L [id number] ####Manufacturing Helper: MARY SOTELO ([phone])[facility] ([facility])[address] [place] [address] [place] CO2 [Moles/Vol] 28 mmol/L Normal 22-30 [facility] Comment on above: Performed By: #### L [id number] ####Manufacturing Helper: MARY SOTELO ([phone])[facility])[address] [place] [address] Creatinine [Mass/Vol] 1.19 mg/dL High 0.52-1.04 [facility] Comment on above: Performed By: #### L [id number] ####Manufacturing Helper: MARY SOTELO ([phone])[facility] [place] [address] [place] GLOMERULAR FILTRATION RATE ML/MIN/1.73 SQ M.PREDICTED 51.2 mL/min/1.73m*2 Low >60.0 [facility] Comment on above: Result Comment: Calc ulation based on the Chronic Kidney Disease Epidemiology Collaboration (CKD-EPI) equation refit without adjustment for race Performed By: #### L [id number] ####Manufacturing Helper: MARY SOTELO ([phone])[facility] [place] [address] Glucose [Mass/Vol] 89 mg/dL Normal 70-100 [facility] Comment on above: Performed By: #### L [id number] ####Manufacturing Helper: MARY SOTELO ([phone])[facility] [place] [address] Phosphate [Mass/Vol] 3.6 mg/dL Normal 2.5-4.5 [facility] Comment on above: Performed By: #### L [id number] ####Manufacturing Helper: MARY SOTELO ([phone])[facility] ([facility])[address] [place] [address] [place] Potassium [Moles/Vol] 5.0 mmol/L Normal 3.5-5.1 [facility] Comment on above: Performed By: #### L [id number] ####Manufacturing Helper: MARY SOTELO ([phone])[facility] [place] [address] [place] Sodium [Moles/Vol] 133 mmol/L Low 135-145 [facility] Comment on above: Performed By: #### L [id number] ####Manufacturing Helper: MARY SOTELO ([phone])[facility] ([facility])[address] [place] [address] [place] Urea nitrogen [Mass/Vol] 28 mg/dL High 7-17 [facility] Comment on above: Performed By: #### L [id number] ####Manufacturing Helper: MARY SOTELO ([phone])[facility] ([facility])[address] [place] [address] Albumin [Mass/Vol] 2.1 g/dL Low 3.5-5.0 [facility] Comment on above: Performed By: #### L AB19 ####Manufacturing Helper: MARY SOTELO ([phone])[facility] ([facility])[address] [place] [address] Anion gap [Moles/Vol] 1 mmol/L Low 3-13 [facility] Comment on above: Performed By: #### L [id number] ####Manufacturing Helper: MARY SOTELO ([phone])[facility] ([facility])[address] [place] [address] Calcium [Mass/Vol] 7.3 mg/dL Low 8.4-10.4 [facility] Comment on above: Performed By: #### L AB19 ####Manufacturing Helper: MARY SOTELO ([phone])[facility] ([facility])[address] [place] [address] Chloride [Moles/Vol] 105 mmol/L Normal 98-107 [facility] Comment on above: Performed By: #### L AB19 ####Manufacturing Helper: MARY SOTELO ([phone])[facility] ([facility])[address] [place] [address] CO2 [Moles/Vol] 26 mmol/L Normal 22-30 [facility] Comment on above: Performed By: #### L AB19 ####Manufacturing Helper: MARY SOTELO ([phone])[facility])[address] [place] [address] Creatinine [Mass/Vol] 1.37 mg/dL High 0.52-1.04 [facility] Comment on above: Performed By: #### L AB19 ####Manufacturing Helper: MARY SOTELO ([phone])[facility])[address] [place] [address] GLOMERULAR FILTRATION RATE ML/MIN/1.73 SQ M.PREDICTED 43.2 mL/min/1.73m*2 Low >60.0 [facility] Comment on above: Result Comment: Calc ulation based on the Chronic Kidney Disease Epidemiology Collaboration (CKD-EPI) equation refit without adjustment for race Performed By: #### L AB19 ####Manufacturing Helper: MARY SOTELO ([phone])[facility])[address] [place] [address] Glucose [Mass/Vol] 149 mg/dL High 70-100 [facility] Comment on above: Performed By: #### L AB19 ####Manufacturing Helper: MARY SOTELO ([phone])[facility] ([facility])[address] [place] [address] Phosphate [Mass/Vol] 4.1 mg/dL Normal 2.5-4.5 [facility] Comment on above: Performed By: #### L AB19 ####Manufacturing Helper: MARY SOTELO ([phone])[facility])[address] [place] [address] Potassium [Moles/Vol] 5.4 mmol/L High 3.5-5.1 [facility] Comment on above: Performed By: #### L AB19 ####Manufacturing Helper: MARY SOTELO ([phone])[facility] ([facility])[address] [place] [address] Sodium [Moles/Vol] 132 mmol/L Low 135-145 [facility] Comment on above: Performed By: #### L AB19 ####Manufacturing Helper: MARY SOTELO ([phone])[facility])[address] [place] [address] [place] Urea nitrogen [Mass/Vol] 31 mg/dL High 7-17 [facility] Comment on above: Performed By: #### L AB19 ####Manufacturing Helper: MARY SOTELO ([phone])[facility])[address] [place] [address] Albumin [Mass/Vol] 2.0 g/dL Low 3.5-5.0 [facility] Comment on above: Performed By: #### L AB19 ####Manufacturing Helper: MARY [phone])[facility] ([facility])[address] [place] [address] Anion gap [Moles/Vol] 1 mmol/L Low 3-13 [facility] Comment on above: Performed By: #### L AB19 ####Manufacturing Helper: MARY SOTELO ([phone])[facility] [place] [address] Calcium [Mass/Vol] 7.6 mg/dL Low 8.4-10.4 [facility] Comment on above: Performed By: #### L AB19 ####Manufacturing Helper: MARY SOTELO ([phone])[facility] [place] [address] Chloride [Moles/Vol] 106 mmol/L Normal 98-107 [facility] Comment on above: Performed By: #### L AB19 ####Manufacturing Helper: MARY SOTELO ([phone])[facility] [place] [address] CO2 [Moles/Vol] 24 mmol/L Normal 22-30 [facility] Comment on above: Performed By: #### L AB19 ####Manufacturing Helper: MARY SOTELO ([phone])[facility] [place] [address] Creatinine [Mass/Vol] 1.54 mg/dL High 0.52-1.04 [facility] Comment on above: Performed By: #### L AB19 ####Manufacturing Helper: MARY SOTELO ([phone])[facility] [place] [address] [place] GLOMERULAR FILTRATION RATE ML/MIN/1.73 SQ M.PREDICTED 37.5 mL/min/1.73m*2 Low >60.0 [facility] Comment on above: Result Comment: Calc ulation based on the Chronic Kidney Disease Epidemiology Collaboration (CKD-EPI) equation refit without adjustment for race Performed By: #### L [id number] ####Manufacturing Helper: MARY SOTELO ([phone])[facility] ([facility])[address] [place] [address] Glucose [Mass/Vol] 147 mg/dL High 70-100 [facility] Comment on above: Performed By: #### L [id number] ####Manufacturing Helper: MARY SOTELO ([phone])[facility] ([facility])[address] [place] [address] Phosphate [Mass/Vol] 4.2 mg/dL Normal 2.5-4.5 [facility] Comment on above: Performed By: #### L [id number] ####Manufacturing Helper: MARY SOTELO ([phone])[facility] ([facility])[address] [place] [address] Potassium [Moles/Vol] 5.3 mmol/L High 3.5-5.1 [facility] Comment on above: Performed By: #### L [id number] ####Manufacturing Helper: MARY SOTELO ([phone])[facility] ([facility])[address] [place] [address] Sodium [Moles/Vol] 132 mmol/L Low 135-145 [facility] Comment on above: Performed By: #### L [id number] ####Manufacturing Helper: MARY SOTELO ([phone])[facility] ([facility])[address] [place] [address] Urea nitrogen [Mass/Vol] 32 mg/dL High 7-17 [facility] Comment on above: Performed By: #### L [id number] ####Manufacturing Helper: MARY SOTELO ([phone])[facility])[address] [place] [address] Renal function 2000 panelon 07-30-2024 Albumin [Mass/Vol] 2.0 g/dL Low 3.5 - 5.0 g/dL [facility] Anion gap [Moles/Vol] 0 mmol/L Low 3 - 13 mmol/L [facility] Calcium [Mass/Vol] 8.7 mg/dL 8.4 - 10. 4 mg/dL [facility] XR CHEST 1 VIEWon 07-30-2024 XR CHEST 1 VIEW Normal [facility] BLOOD GAS ARTERIALon 09-26-2 024 Base excess Calc (Bld) [Moles/Vol] 0.9 mmol/L Normal -3.0-3.0 [facility] Comment on above: Performed By: #### L [id number] ####Manufacturing Helper: MARY SOTELO ([phone])[facility] ([facility])[address] [place] [address] CO2 [Moles/Vol] 26.3 mmol/L Normal 23.0-27.0 [facility] Comment on above: Performed By: #### L [id number] ####Manufacturing Helper: MARY SOTELO ([phone])[facility] ([facility])[address] [place] [address] HCO3 (Bld) [Moles/Vol] 25.1 mmol/L High 21.0-25.0 [facility] Comment on above: Performed By: #### L [id number] ####Manufacturing Helper: MARY SOTELO ([phone])[facility] ([facility])[address] [place] [address] Hemoglobin (Bld) [Mass/Vol] 8.3 g/dL Normal Screen only [facility] Comment on above: Performed By: #### L [id number] ####Manufacturing Helper: MARY SOTELO ([phone])[facility] ([facility])[address] [place] [address] OXYGEN SATURATION (%) IN ARTERIAL BLOOD 97.1 % Normal 95.0-100.0 [facility] Comment on above: Performed By: #### L [id number] ####Manufacturing Helper: MARY SOTELO ([phone])[facility] ([facility])[address] [place] [address] PCO2 ARTERIAL 37.9 mm Hg Normal >35.0-<45.0 [facility] Comment on above: Performed By: #### L [id number] ####Manufacturing Helper: MARY SOTELO ([phone])[facility] ([facility])[address] [place] [address] PH ARTERIAL 7.439 Normal 7.350-7.450 [facility] Comment on above: Performed By: #### L [id number] ####Manufacturing Helper: MARY SOTELO ([phone])[facility] ([facility])[address] [place] [address] PO2 ARTERIAL 96.3 mm Hg Normal 80.0-100.0 [facility] Comment on above: Performed By: #### L [id number] ####Manufacturing Helper: MARY SOTELO ([phone])[facility] ([facility])[address] [place] [address] SOURCE OF OXYGEN 30% Oxygen Normal [facility] Comment on above: Result Comment: vent ilator Performed By: #### L [id number] ####Manufacturing Helper: MARY SOTELO ([phone])[facility] ([facility])[address] [place] [address] Base excess Calc (Bld) [Moles/Vol] 3.5 mmol/L High -3.0-3.0 [facility] Comment on above: Performed By: #### L [id number] ####Manufacturing Helper: MARY SOTELO ([phone])[facility] ([facility])[address] [place] [address] CO2 [Moles/Vol] 27.7 mmol/L High 23.0-27.0 [facility] Comment on above: Performed By: #### L [id number] ####Manufacturing Helper: MARY SOTELO ([phone])[facility] ([facility])[address] [place] [address] HCO3 (Bld) [Moles/Vol] 26.7 mmol/L High 21.0-25.0 [facility] Comment on above: Performed By: #### L [id number] ####Manufacturing Helper: MARY SOTELO ([phone])[facility] ([facility])[address] [place] [address] Hemoglobin (Bld) [Mass/Vol] 8.0 g/dL Normal Screen only [facility] Comment on above: Performed By: #### L [id number] ####Manufacturing Helper: MARY SOTELO ([phone])[facility] ([facility])[address] [place] [address] OXYGEN SATURATION (%) IN ARTERIAL BLOOD 96.2 % Normal 95.0-100.0 [facility] Comment on above: Performed By: #### L [id number] ####Manufacturing Helper: MARY SOTELO ([phone])[facility] ([facility])[address] [place] [address] PCO2 ARTERIAL 34.5 mm Hg Low >35.0-<45.0 [facility] Comment on above: Performed By: #### L [id number] ####Manufacturing Helper: MARY SOTELO ([phone])[facility] ([facility])[address] [place] [address] PH ARTERIAL 7.506 High 7.350-7.450 [facility] Comment on above: Performed By: #### L [id number] ####Manufacturing Helper: MARY SOTELO ([phone])[facility] ([facility])[address] [place] [address] PO2 ARTERIAL 88.9 mm Hg Normal 80.0-100.0 [facility] Comment on above: Performed By: #### L [id number] ####Manufacturing Helper: MARY SOTELO ([phone])[facility])[address] [place] [address] SOURCE OF OXYGEN 30% Oxygen Normal [facility] Comment on above: Result Comment: vent ilator Performed By: #### L [id number] ####Manufacturing Helper: MARY SOTELO ([phone])[facility] ([facility])[address] [place] [address] Base excess Calc (Bld) [Moles/Vol] 1.9 mmol/L Normal -3.0-3.0 [facility] Comment on above: Performed By: #### L [id number] ####Manufacturing Helper: MARY SOTELO ([phone])[facility])[address] [place] [address] CO2 [Moles/Vol] 26.0 mmol/L Normal 23.0-27.0 [facility] Comment on above: Performed By: #### L [id number] ####Manufacturing Helper: MARY SOTELO ([phone])[facility] ([facility])[address] [place] [address] HCO3 (Bld) [Moles/Vol] 25.0 mmol/L Normal 21.0-25.0 [facility] Comment on above: Performed By: #### L [id number] ####Manufacturing Helper: MARY SOTELO ([phone])[facility] ([facility])[address] [place] [address] Hemoglobin (Bld) [Mass/Vol] 8.2 g/dL Normal Screen only [facility] Comment on above: Performed By: #### L [id number] ####Manufacturing Helper: MARY SOTELO ([phone])[facility])[address] [place] [address] OXYGEN SATURATION (%) IN ARTERIAL BLOOD 97.9 % Normal 95.0-100.0 [facility] Comment on above: Performed By: #### L [id number] ####Manufacturing Helper: MARY SOTELO ([phone])[facility] ([facility])[address] [place] [address] PCO2 ARTERIAL 32.6 mm Hg Low >35.0-<45.0 [facility] Comment on above: Performed By: #### L [id number] ####Manufacturing Helper: MARY SOTELO ([phone])[facility] ([facility])[address] [place] [address] PH ARTERIAL 7.502 High 7.350-7.450 [facility] Comment on above: Performed By: #### L [id number] ####Manufacturing Helper: MARY SOTELO ([phone])[facility] ([facility])[address] [place] [address] PO2 ARTERIAL 110.0 mm Hg High 80.0-100.0 [facility] Comment on above: Performed By: #### L [id number] ####Manufacturing Helper: MARY SOTELO ([phone])[facility] ([facility])[address] [place] [address] SOURCE OF OXYGEN Vent Normal [facility] Comment on above: Performed By: #### L [id number] ####Manufacturing Helper: MARY SOTELO ([phone])[facility])[address] [place] [address] [place] CALCIUM, IONIZEDon 4 CALCIUM IONIZED 4.70 mg/dL Normal 4.30-5.20 [facility] Comment on above: Performed By: #### L AB54 ####Manufacturing Helper: MARY SOTELO ([phone])[facility])[address] [place] [address] PH, IONIZED CALCIUM 7.41 Normal 7.31-7.[address] [facility] Comment on above: Performed By: #### L AB54 ####Manufacturing Helper: MARY SOTELO ([phone])[address] CALCIUM IONIZED 4.30 mg/dL Normal 4.30-5.20 [facility] Comment on above: Performed By: #### L AB54 ####Manufacturing Helper: MARY SOTELO ([phone])[facility])[address] [place] [address] PH, IONIZED CALCIUM 7.44 Normal 7.31-7.[address] [facility] Comment on above: Performed By: #### L AB54 ####Manufacturing Helper: MRAY SOTELO ([phone])[facility])[address] [place] [address] [place] CALCIUM IONIZED 4.10 mg/dL Low 4.30-5.20 [facility] Comment on above: Performed By: #### L AB54 ####Manufacturing Helper: MARY SOTELO ([phone])[address] PH, IONIZED CALCIUM 7.51 High 7.31-7.[address] [facility] Comment on above: Performed By: #### L AB54 ####Manufacturing Helper: MARY SOTELO ([phone])[facility])[address] [place] [address] CBC WITH AUTO DIFFERENTIALon 07-29-2024 Basophils (Bld) [#/Vol] 0.0 10*3/uL Normal 0.0-0.2 [facility] Comment on above: Performed By: #### L [id number] ####Manufacturing Helper: MARY SOTELO ([phone])[facility])[address] [place] [address] Basophils/100 WBC (Bld) 0.0 % Normal 0.0-2.0 [facility] Comment on above: Performed By: #### L [id number] ####Manufacturing Helper: MARY SOTELO ([phone])[facility])[address] [place] [address] Eosinophils (Bld) [#/Vol] 0.0 10*3/uL Normal 0.0-0.5 [facility] Comment on above: Performed By: #### L [id number] ####Manufacturing Helper: MARY SOTELO ([phone])[facility])[address] [place] [address] Eosinophils/100 WBC (Bld) 0.0 % Normal 0.0-6.0 [facility] Comment on above: Performed By: #### L [id number] ####Manufacturing Helper: MARY SOTELO ([phone])[facility])[address] [place] [address] Erythrocyte distribution width (RBC) [Ratio] 15.2 % High 11.5-15.0 [facility] Comment on above: Performed By: #### L [id number] ####Manufacturing Helper: MARY SOTELO ([phone])[facility])[address] [place] [address] Hematocrit (Bld) [Volume fraction] 23.1 % Low 35.0-47.0 [facility] Comment on above: Performed By: #### L [id number] ####Manufacturing Helper: MARY SOTELO ([phone])[facility])[address] [place] [address] Hemoglobin (Bld) [Mass/Vol] 7.7 g/dL Low 11.7-16.0 [facility] Comment on above: Performed By: #### L [id number] ####Manufacturing Helper: MARY SOTELO ([phone])[facility])[address] [place] [address] IMMATURE GRANS % 0.5 % Normal 0.0-2.0 [facility] Comment on above: Performed By: #### L [id number] ####Manufacturing Helper: MARY SOTELO ([phone])[address] IMMATURE GRANS ABSOLUTE 0.0 10*3/uL Normal <0.1 [facility] Comment on above: Performed By: #### L [id number] ####Manufacturing Helper: MARY SOTELO ([phone])[facility])[address] [place] [address] Lymphocytes (Bld) [#/Vol] 0.5 10*3/uL Low 1.0-4.3 [facility] Comment on above: Performed By: #### L [id number] ####Manufacturing Helper: MARY SOTELO ([phone])[address] Lymphocytes/100 WBC (Bld) 6.9 % Low 15.0-45.0 [facility] Comment on above: Performed By: #### L [id number] ####Manufacturing Helper: MARY SOTELO ([phone])[facility])[address] [place] [address] MCH (RBC) [Entitic mass] 28.6 pg Normal 26.0-34.0 [facility] Comment on above: Performed By: #### L [id number] ####Manufacturing Helper: MARY SOTELO ([phone])[facility])[address] [place] [address] MCHC 33.3 % Normal 30.5-36.0 [facility] Comment on above: Performed By: #### L [id number] ####Manufacturing Helper: MARY SOTELO ([phone])[facility] ([facility])[address] [place] [address] MCV (RBC) [Entitic vol] 85.9 fL Normal 77.0-99.0 [facility] Comment on above: Performed By: #### L [id number] ####Manufacturing Helper: MARY SOTELO ([phone])[facility] ([facility])[address] [place] [address] Monocytes (Bld) [#/Vol] 0.4 10*3/uL Normal 0.0-0.9 [facility] Comment on above: Performed By: #### L [id number] ####Manufacturing Helper: MARY SOTELO ([phone])[facility] ([facility])[address] [place] [address] Monocytes/100 WBC (Bld) 6.5 % Normal 5.0-13.0 [facility] Comment on above: Performed By: #### L [id number] ####Manufacturing Helper: MARY SOTELO ([phone])[facility] ([facility])[address] [place] [address] NEUTROPHILS ABSOLUTE 5.6 10*3/uL Normal 1.8-7.5 [facility] Comment on above: Performed By: #### L [id number] ####Manufacturing Helper: MARY SOTELO ([phone])[facility] ([facility])[address] [place] [address] Neutrophils/100 WBC (Bld) 86.1 % High 38.0-82.0 [facility] Comment on above: Performed By: #### L [id number] ####Manufacturing Helper: MARY SOTELO ([phone])[facility])[address] [place] [address] NRBC 0.0 /100 WBCs Normal 0.0-2.0 [facility] Comment on above: Performed By: #### L [id number] ####Manufacturing Helper: MARY SOTELO ([phone])[facility] ([facility])[address] [place] [address] Platelet mean volume (Bld) [Entitic vol] 11.0 fL Normal 9.0-12.7 [facility] Comment on above: Performed By: #### L [id number] ####Manufacturing Helper: MARY SOTELO ([phone])[facility])[address] [place] [address] Platelets (Bld) [#/Vol] 141 10*3/uL Normal 140-440 [facility] Comment on above: Performed By: #### L [id number] ####Manufacturing Helper: MARY SOTELO ([phone])[facility] ([facility])[address] [place] [address] RBC (Bld) [#/Vol] 2.69 10*6/uL Low 3.80-5.20 [facility] Comment on above: Performed By: #### L [id number] ####Manufacturing Helper: MARY SOTELO ([phone])[facility] ([facility])[address] [place] [address] WBC (Bld) [#/Vol] 6.5 10*3/uL Normal 3.6-10.7 [facility] Comment on above: Performed By: #### L [id number] ####Manufacturing Helper: MARY SOTELO ([phone])[facility] ([facility])[address] [place] [address] CKon 07-29-2024 CK [Catalytic activity/Vol] 564 U/L High 30-170 [facility] Comment on above: Performed By: #### L AB19, LAB62 ####Manufacturing Helper: MARY SOTELO ([phone])[facility])[address] [place] [address] ECG 12-LEADon 07-29-2024 ECG 12-LEAD IMPRESSION: Sinus rhythm Multiple ventricular premature complexes Anterior infarct, old Electronically Signed On 07-29-2024 20:06:11 EDT by Eladio Valle Normal [facility] GLUCOSE, RANDOMon 07-29-2024 Glucose [Mass/Vol] 163 mg/dL High 70-100 [facility] Comment on above: Performed By: #### L [id number] ####Manufacturing Helper: MARY SOTELO ([phone])[facility] ([facility])[address] [place] [address] IDNon 07-29-2024 IDN Normal [facility] Nursing Noteon 07-29-2024 Nursing Note Patient returned fro m IR. Normal [facility] Nursing Note Normal [facility] Nursing Note To IR for tunneled v as cath. Normal [facility] Nursing Note Dr. Mahajan came by an d said EEG could be discontinued. Normal [facility] Nursing Note Called IR. Patient will get her tunneled catheter this afternoon. Normal [facility] Nursing Note Dr. Heath and gisselle palacios here. They were notified of issues with vas cath. They will talk to Renal to decide what to do. Repostion line vs cath roel vs HD? Normal [facility] Nursing Note CRRT alarming extremely negative again. Blood returned. Set disposed. Vas cath lines flushed. Normal [facility] Nursing Note CRRT alarming extremely negative pressure. Lines clamped and disconnected. Vas cath ports flushed again. CRRT restarted. Normal [facility] Nursing Note CRRT alarming extremely negative. Lines clamped. Vas cath ports flushed. Red line still pulls back easier. Will keep return line attached to red port. Normal [facility] Nursing Note CRRT alarming extremely negative. Lines clamped. Vas cath ports flushed. Red port pulls back easier. Will attach return line to red port. CRRT restarted. Normal [facility] Nursing Note Cath roel removed fro m vas cath. Both ports flush easily but neither draw back easily. CRRT started. Normal [facility] Nursing Note CRRT paused d/t acce ss line clotting at approximately 8532-1820. Trouble shooting attempted. Cath flow ordered and given at 0646. Normal [facility] Progress Noteon 07-29-2024 Progress Note 07/29/24 1249 Wean Screen Safety Screen Spontaneous Breathing Trial (SBT - RT) (sedation not weaned or turned off) No SBT done. Normal [facility] Progress Note Normal [facility] Progress Note Normal [facility] Progress Note OCCUPATIONAL THERAPY [facility] Name/MRN: Sandy Deng ([id number]) Date: 07/29/2024 Pt remains on strict bed rest. Will continue to follow. Jamey Muro, OT Normal [facility] Progress Note Normal [facility] Progress Note Normal [facility] Progress Note Normal [facility] RENAL FUNCTION PANELon 07-29 Albumin [Mass/Vol] 2.0 g/dL Low 3.5-5.0 [facility] Comment on above: Performed By: #### L [id number] ####Manufacturing Helper: MARY SOTELO ([phone])[facility])[address] [place] [address] Anion gap [Moles/Vol] 2 mmol/L Low 3-13 [facility] Comment on above: Performed By: #### L [id number] ####Manufacturing Helper: MARY SOTELO ([phone])[facility])[address] [place] [address] Calcium [Mass/Vol] 8.6 mg/dL Normal 8.4-10.4 [facility] Comment on above: Performed By: #### L [id number] ####Manufacturing Helper: MARY SOTELO ([phone])[facility] ([facility])[address] [place] [address] [place] Chloride [Moles/Vol] 106 mmol/L Normal 98-107 [facility] Comment on above: Performed By: #### L [id number] ####Manufacturing Helper: MARY SOTELO ([phone])[facility] ([facility])[address] [place] [address] [place] CO2 [Moles/Vol] 26 mmol/L Normal 22-30 [facility] Comment on above: Performed By: #### L [id number] ####Manufacturing Helper: MARY SOTELO ([phone])[facility])[address] [place] [address] [place] Creatinine [Mass/Vol] 1.94 mg/dL High 0.52-1.04 [facility] Comment on above: Performed By: #### L AB19 ####Manufacturing Helper: MARY SOTELO ([phone])[facility] ([facility])[address] [place] [address] [place] GLOMERULAR FILTRATION RATE ML/MIN/1.73 SQ M.PREDICTED 28.5 mL/min/1.73m*2 Low >60.0 [facility] Comment on above: Result Comment: Calc ulation based on the Chronic Kidney Disease Epidemiology Collaboration (CKD-EPI) equation refit without adjustment for race Performed By: #### L AB19 ####Manufacturing Helper: MARY SOTELO ([phone])[facility] ([facility])[address] [place] [address] Glucose [Mass/Vol] 33 mg/dL Critically low 70-100 [facility] Comment on above: Performed By: #### L AB19 ####Manufacturing Helper: MARY SOTELO ([phone])[facility] [place] [address] [place] Phosphate [Mass/Vol] 4.4 mg/dL Normal 2.5-4.5 [facility] Comment on above: Performed By: #### L AB19 ####Manufacturing Helper: MARY SOTELO ([phone])[facility] [place] [address] [place] Potassium [Moles/Vol] 5.0 mmol/L Normal 3.5-5.1 [facility] Comment on above: Performed By: #### L AB19 ####Manufacturing Helper: MARY SOTELO ([phone])[facility] [place] [address] [place] Sodium [Moles/Vol] 133 mmol/L Low 135-145 [facility] Comment on above: Performed By: #### L AB19 ####Manufacturing Helper: MARY SOTELO ([phone])[facility] [place] [address] [place] Urea nitrogen [Mass/Vol] 41 mg/dL High 7-17 [facility] Comment on above: Performed By: #### L AB19 ####Manufacturing Helper: MARY SOTELO ([phone])[facility])[address] [place] [address] Albumin [Mass/Vol] 1.9 g/dL Low 3.5-5.0 [facility] Comment on above: Performed By: #### L AB19, LAB62 ####Manufacturing Helper: MARY SOTELO ([phone])[facility] ([facility])[address] [place] [address] Anion gap [Moles/Vol] 2 mmol/L Low 3-13 [facility] Comment on above: Performed By: #### L AB19, LAB62 ####Manufacturing Helper: MARY SOTELO ([phone])[facility])[address] [place] [address] Calcium [Mass/Vol] 7.6 mg/dL Low 8.4-10.4 [facility] Comment on above: Performed By: #### L AB19, LAB62 ####Manufacturing Helper: MARY SOTELO ([phone])[facility] ([facility])[address] [place] [address] Chloride [Moles/Vol] 104 mmol/L Normal 98-107 [facility] Comment on above: Performed By: #### L AB19, LAB62 ####Manufacturing Helper: MARY SOTELO ([phone])[facility])[address] [place] [address] [place] CO2 [Moles/Vol] 26 mmol/L Normal 22-30 [facility] Comment on above: Performed By: #### L AB19, LAB62 ####Manufacturing Helper: MARY SOTELO ([phone])[facility])[address] [place] [address] Creatinine [Mass/Vol] 1.59 mg/dL High 0.52-1.04 [facility] Comment on above: Performed By: #### L AB19, LAB62 ####Manufacturing Helper: MARY SOTELO ([phone])[facility])[address] [place] [address] GLOMERULAR FILTRATION RATE ML/MIN/1.73 SQ M.PREDICTED 36.1 mL/min/1.73m*2 Low >60.0 [facility] Comment on above: Result Comment: Calc ulation based on the Chronic Kidney Disease Epidemiology Collaboration (CKD-EPI) equation refit without adjustment for race Performed By: #### L AB19, LAB62 ####Manufacturing Helper: MARY SOTELO ([phone])[facility] ([facility])[address] [place] [address] Glucose [Mass/Vol] 145 mg/dL High 70-100 [facility] Comment on above: Performed By: #### L AB19, LAB62 ####Manufacturing Helper: MARY SOTELO ([phone])[facility])[address] [place] [address] Phosphate [Mass/Vol] 3.7 mg/dL Normal 2.5-4.5 [facility] Comment on above: Performed By: #### L AB19, LAB62 ####Manufacturing Helper: MARY SOTELO ([phone])[facility])[address] [place] [address] [place] Potassium [Moles/Vol] 4.9 mmol/L Normal 3.5-5.1 [facility] Comment on above: Performed By: #### L AB19, LAB62 ####Manufacturing Helper: MARY SOTELO ([phone])[facility])[address] [place] [address] [place] Sodium [Moles/Vol] 131 mmol/L Low 135-145 [facility] Comment on above: Performed By: #### L AB19, LAB62 ####Manufacturing Helper: MARY SOTELO ([phone])[facility])[address] [place] [address] [place] Urea nitrogen [Mass/Vol] 35 mg/dL High 7-17 [facility] Comment on above: Performed By: #### L AB19, LAB62 ####Manufacturing Helper: MARY [id number])[facility] [place] [address] Albumin [Mass/Vol] 2.0 g/dL Low 3.5-5.0 [facility] Comment on above: Performed By: #### L AB19 ####Manufacturing Helper: MARY SOTELO ([phone])[facility] [place] [address] [place] Anion gap [Moles/Vol] 1 mmol/L Low 3-13 [facility] Comment on above: Performed By: #### L AB19 ####Manufacturing Helper: MARY SOTELO ([phone])[facility] ([facility])[address] [place] [address] Calcium [Mass/Vol] 7.5 mg/dL Low 8.4-10.4 [facility] [facility] Comment on above: Performed By: #### L AB19 ####Manufacturing Helper: MARY SOTELO ([phone])[facility] [place] [address] [place] Chloride [Moles/Vol] 104 mmol/L Normal 98-107 [facility] Comment on above: Performed By: #### L AB19 ####Manufacturing Helper: MARY SOTELO ([phone])[facility] [place] [address] [place] CO2 [Moles/Vol] 25 mmol/L Normal 22-30 [facility] Comment on above: Performed By: #### L AB19 ####Manufacturing Helper: MARY SOTELO ([phone])[facility] [place] [address] [place] Creatinine [Mass/Vol] 1.32 mg/dL High 0.52-1.04 [facility] Comment on above: Performed By: #### L AB19 ####Manufacturing Helper: MARY SOTELO ([phone])[facility] [place] [address] [place] GLOMERULAR FILTRATION RATE ML/MIN/1.73 SQ M.PREDICTED 45.2 mL/min/1.73m*2 Low >60.0 [facility] Comment on above: Result Comment: Calc ulation based on the Chronic Kidney Disease Epidemiology Collaboration (CKD-EPI) equation refit without adjustment for race Performed By: #### L AB19 ####Manufacturing Helper: MARY SOTELO ([phone])[facility] ([facility])[address] [place] [address] Glucose [Mass/Vol] 206 mg/dL High 70-100 [facility] Comment on above: Performed By: #### L AB19 ####Manufacturing Helper: MARY SOTELO ([phone])[facility] ([facility])[address] [place] [address] Phosphate [Mass/Vol] 3.2 mg/dL Normal 2.5-4.5 [facility] Comment on above: Performed By: #### L AB19 ####Manufacturing Helper: MARY SOTELO ([phone])[facility] ([facility])[address] [place] [address] Potassium [Moles/Vol] 5.2 mmol/L High 3.5-5.1 [facility] Comment on above: Performed By: #### L AB19 ####Manufacturing Helper: MARY SOTELO ([phone])[facility] ([facility])[address] [place] [address] Sodium [Moles/Vol] 131 mmol/L Low 135-145 [facility] Comment on above: Performed By: #### L AB19 ####Manufacturing Helper: MARY SOTELO ([phone])[facility] ([facility])[address] [place] [address] [place] Urea nitrogen [Mass/Vol] 28 mg/dL High 7-17 [facility] Comment on above: Performed By: #### L AB19 ####Manufacturing Helper: MARY SOTELO ([phone])[facility] ([facility])[address] [place] [address] [place] Respiratory Cultureon 2023 [facility] Comment on above: Performed By: #### M 100.2400, M100.2000 ####[facility] [id number] [place], [address] XR CHEST 1 VIEWon 07-29-2024 XR CHEST 1 VIEW Normal [facility] BASIC METABOLIC PANELon 07-05 Anion gap [Moles/Vol] 4 mmol/L Normal 3-13 [facility] Comment on above: Performed By: #### L AB103, [id number], LAB15 ####Manufacturing Helper: MARY SOTELO ([phone])[facility] ([facility])[address] [place] [address] Calcium [Mass/Vol] 7.4 mg/dL Low 8.4-10.4 [facility] Comment on above: Performed By: #### Dora AB103, [id number], LAB15 ####Manufacturing Helper: MARY SOTELO ([phone])[facility] ([facility])[address] [place] [address] Chloride [Moles/Vol] 104 mmol/L Normal 98-107 [facility] Comment on above: Performed By: #### L AB103, [id number], LAB15 ####Manufacturing Helper: MARY SOTELO ([phone])[facility] ([facility])[address] [place] [address] CO2 [Moles/Vol] 23 mmol/L Normal 22-30 [facility] Comment on above: Performed By: #### L AB103, [id number], LAB15 ####Manufacturing Helper: MARY SOTELO ([phone])[facility] ([facility])[address] [place] [address] [place] Creatinine [Mass/Vol] 1.80 mg/dL High 0.52-1.04 [facility] Comment on above: Performed By: #### L AB103, [id number], LAB15 ####Manufacturing Helper: MARY SOTELO ([phone])[facility] ([facility])[address] [place] [address] [place] GLOMERULAR FILTRATION RATE ML/MIN/1.73 SQ M.PREDICTED 31.1 mL/min/1.73m*2 Low >60.0 [facility] Comment on above: Result Comment: Calc ulation based on the Chronic Kidney Disease Epidemiology Collaboration (CKD-EPI) equation refit without adjustment for race Performed By: #### L AB103, [id number], LAB15 ####Manufacturing Helper: MARY SOTELO ([phone])[facility] ([facility])[address] [place] [address] Glucose [Mass/Vol] 143 mg/dL High 70-100 [facility] Comment on above: Performed By: #### L AB103, [id number], LAB15 ####Manufacturing Helper: MARY SOTELO ([phone])[facility] ([facility])[address] [place] [address] Potassium [Moles/Vol] 4.5 mmol/L Normal 3.5-5.1 [facility] Comment on above: Performed By: #### Dora PARISH103, [id number], LAB15 ####Manufacturing Helper: MARY SOTELO ([phone])[facility] [place] [address] [place] Sodium [Moles/Vol] 131 mmol/L Low 135-145 [facility] Comment on above: Performed By: #### L AB103, [id number], LAB15 ####Manufacturing Helper: MARY SOTELO ([phone])[facility] ([facility])[address] [place] [address] [place] Urea nitrogen [Mass/Vol] 34 mg/dL High 7-17 [facility] Comment on above: Performed By: #### L AB103, [id number], LAB15 ####Manufacturing Helper: MARY SOTELO ([phone])[facility] ([facility])[address] [place] [address] [place] BLOOD GAS ARTERIALon 024 Base excess Calc (Bld) [Moles/Vol] -1.2000 mmol/L Normal -3.0-3.0 [facility] Comment on above: Performed By: #### L AB76 ####Manufacturing Helper: MARY SOTELO ([phone])[facility] ([facility])[address] [place] [address] CO2 [Moles/Vol] 24.6 mmol/L Normal 23.0-27.0 [facility] Comment on above: Performed By: #### L AB76 ####Manufacturing Helper: MARY SOTELO ([phone])[facility] [place] [address] HCO3 (Bld) [Moles/Vol] 23.4 mmol/L Normal 21.0-25.0 S [facility] Comment on above: Performed By: #### L AB76 ####Manufacturing Helper: MARY SOTELO ([phone])[facility] ([facility])[address] [place] [address] Hemoglobin (Bld) [Mass/Vol] 9.2 g/dL Normal Screen only [facility] Comment on above: Performed By: #### L AB76 ####Manufacturing Helper: MARY SOTELO ([phone])[facility] ([facility])[address] [place] [address] OXYGEN SATURATION (%) IN ARTERIAL BLOOD 98.1 % Normal 95.0-100.0 [facility] Comment on above: Performed By: #### L AB76 ####Manufacturing Helper: MARY SOTELO ([phone])[facility] ([facility])[address] [place] [address] PCO2 ARTERIAL 38.6 mm Hg Normal >35.0-<45.0 [facility] Comment on above: Performed By: #### L AB76 ####Manufacturing Helper: MARY SOTELO ([phone])[facility] ([facility])[address] [place] [address] PH ARTERIAL 7.401 Normal 7.350-7.450 [facility] Comment on above: Performed By: #### L AB76 ####Manufacturing Helper: MARY SOTELO ([phone])[facility] ([facility])[address] [place] [address] PO2 ARTERIAL 120.0 mm Hg High 80.0-100.0 [facility] Comment on above: Performed By: #### L AB76 ####Manufacturing Helper: MARY SOTELO ([phone])[facility])[address] [place] [address] [place] SOURCE OF OXYGEN Vent Normal [facility] Comment on above: Performed By: #### L AB76 ####Manufacturing Helper: MARY SOTELO ([phone])[facility])[address] [place] [address] [place] CALCIUM, IONIZEDon 4 CALCIUM IONIZED 4.10 mg/dL Low 4.30-5.20 [facility] Comment on above: Performed By: #### L AB54 ####Manufacturing Helper: MARY SOTELO ([phone])[facility])[address] [place] [address] PH, IONIZED CALCIUM 7.52 High 7.31-7.46 [facility] Comment on above: Performed By: #### L AB54 ####Manufacturing Helper: MARY SOTELO ([phone])[facility] ([facility])[address] [place] [address] [place] CALCIUM IONIZED 4.30 mg/dL Normal 4.30-5.20 [facility] Comment on above: Performed By: #### L AB54 ####Manufacturing Helper: MARY SOTELO ([phone])[facility])[address] [place] [address] [place] PH, IONIZED CALCIUM 7.46 Normal 7.31-7.46 [facility] Comment on above: Performed By: #### L AB54 ####Manufacturing Helper: MARY SOTELO ([phone])[facility] ([facility])[address] [place] [address] [place] CALCIUM IONIZED 4.20 mg/dL Low 4.30-5.20 [facility] Comment on above: Performed By: #### L AB54 ####Manufacturing Helper: MARY SOTELO ([phone])[facility])[address] [place] [address] [place] PH, IONIZED CALCIUM 7.38 Normal 7.31-7.46 [facility] Comment on above: Performed By: #### L AB54 ####Manufacturing Helper: MARY SOTELO ([phone])[facility])[address] [place] [address] CALCIUM IONIZED 4.10 mg/dL Low 4.30-5.20 [facility] Comment on above: Performed By: #### L AB54 ####Manufacturing Helper: MARY SOTELO ([phone])[facility])[address] [place] [address] PH, IONIZED CALCIUM 7.44 Normal 7.31-7.46 [facility] Comment on above: Performed By: #### L AB54 ####Manufacturing Helper: MARY SOTELO ([phone])[facility])[address] [place] [address] CARECOORDon 07-28-2024 CARECOORD Normal [facility] CBC WITH AUTO DIFFERENTIALon 07-28-2024 Basophils (Bld) [#/Vol] 0.0 10*3/uL Normal 0.0-0.2 [facility] Comment on above: Performed By: #### L [id number] ####Manufacturing Helper: MARY SOTELO ([phone])[facility])[address] [place] [address] Basophils/100 WBC (Bld) 0.1 % Normal 0.0-2.0 [facility] Comment on above: Performed By: #### L [id number] ####Manufacturing Helper: MARY SOTELO ([phone])[facility])[address] [place] [address] Eosinophils (Bld) [#/Vol] 0.0 10*3/uL Normal 0.0-0.5 [facility] Comment on above: Performed By: #### L [id number] ####Manufacturing Helper: MARY SOTELO ([phone])[facility])[address] [place] [address] Eosinophils/100 WBC (Bld) 0.0 % Normal 0.0-6.0 [facility] Comment on above: Performed By: #### L [id number] ####Manufacturing Helper: MARY SOTELO ([phone])[address] Erythrocyte distribution width (RBC) [Ratio] 15.0 % Normal 11.5-15.0 [facility] Comment on above: Performed By: #### L [id number] ####Manufacturing Helper: MARY SOTELO ([phone])[address] Hematocrit (Bld) [Volume fraction] 25.8 % Low 35.0-47.0 [facility] Comment on above: Performed By: #### L [id number] ####Manufacturing Helper: MARY SOTELO ([phone])[address] Hemoglobin (Bld) [Mass/Vol] 8.8 g/dL Low 11.7-16.0 [facility] Comment on above: Performed By: #### L [id number] ####Manufacturing Helper: MARY SOTELO ([phone])[address] IMMATURE GRANS % 0.4 % Normal 0.0-2.0 [facility] Comment on above: Performed By: #### L [id number] ####Manufacturing Helper: MARY SOTELO ([phone])[address] IMMATURE GRANS ABSOLUTE 0.1 10*3/uL High <0.1 [facility] Comment on above: Performed By: #### L [id number] ####Manufacturing Helper: MARY SOTELO ([phone])[address] Lymphocytes (Bld) [#/Vol] 0.3 10*3/uL Low 1.0-4.3 [facility] Comment on above: Performed By: #### L [id number] ####Manufacturing Helper: MARY SOTELO ([phone])[facility])[address] [place] [address] Lymphocytes/100 WBC (Bld) 2.9 % Low 15.0-45.0 [facility] Comment on above: Performed By: #### L [id number] ####Manufacturing Helper: MARY SOTELO ([phone])[facility])[address] [place] [address] MCH (RBC) [Entitic mass] 28.9 pg Normal 26.0-34.0 [facility] Comment on above: Performed By: #### L [id number] ####Manufacturing Helper: MARY SOTELO ([phone])[facility])[address] [place] [address] MCHC 34.1 % Normal 30.5-36.0 [facility] Comment on above: Performed By: #### L [id number] ####Manufacturing Helper: MARY SOTELO ([phone])[facility])[address] [place] [address] MCV (RBC) [Entitic vol] 84.6 fL Normal 77.0-99.0 [facility] Comment on above: Performed By: #### L [id number] ####Manufacturing Helper: MARY SOTELO ([phone])[facility])[address] [place] [address] Monocytes (Bld) [#/Vol] 0.4 10*3/uL Normal 0.0-0.9 [facility] Comment on above: Performed By: #### L [id number] ####Manufacturing Helper: MARY SOTELO ([phone])[facility])[address] [place] [address] Monocytes/100 WBC (Bld) 3.6 % Low 5.0-13.0 [facility] Comment on above: Performed By: #### L [id number] ####Manufacturing Helper: MARY SOTELO ([phone])[facility])[address] [place] [address] NEUTROPHILS ABSOLUTE 10.7 10*3/uL High 1.8-7.5 [facility] Comment on above: Performed By: #### L [id number] ####Manufacturing Helper: MARY SOTELO ([phone])[facility] ([facility])[address] [place] [address] Neutrophils/100 WBC (Bld) 93.0 % High 38.0-82.0 [facility] Comment on above: Performed By: #### L [id number] ####Manufacturing Helper: MARY SOTELO ([phone])[facility] ([facility])[address] [place] [address] NRBC 0.0 /100 WBCs Normal 0.0-2.0 [facility] Comment on above: Performed By: #### L [id number] ####Manufacturing Helper: MARY SOTELO ([phone])[facility] ([facility])[address] [place] [address] Platelet mean volume (Bld) [Entitic vol] 10.5 fL Normal 9.0-12.7 [facility] Comment on above: Performed By: #### L [id number] ####Manufacturing Helper: MARY SOTELO ([phone])[facility] ([facility])[address] [place] [address] Platelets (Bld) [#/Vol] 160 10*3/uL Normal 140-440 [facility] Comment on above: Performed By: #### L [id number] ####Manufacturing Helper: MARY SOTELO ([phone])[facility] ([facility])[address] [place] [address] [place] RBC (Bld) [#/Vol] 3.05 10*6/uL Low 3.80-5.20 [facility] Comment on above: Performed By: #### L [id number] ####Manufacturing Helper: MARY SOTELO ([phone])[facility] ([facility])[address] [place] [address] [place] WBC (Bld) [#/Vol] 11.5 10*3/uL High 3.6-10.7 [facility] Comment on above: Performed By: #### L [id number] ####Manufacturing Helper: MARY SOTELO ([phone])[facility])[address] [place] [address] COMPREHENSIVE METABOLIC PANE [place] 07-28-2024 Albumin [Mass/Vol] 2.2 g/dL Low 3.5-5.0 [facility] Comment on above: Performed By: #### L AB103, [id number], LAB17 ####Manufacturing Helper: MARY SOTELO ([phone])[facility] ([facility])[address] [place] [address] ALP [Catalytic activity/Vol] 78 U/L Normal 38-126 [facility] Comment on above: Performed By: #### Dora AB103, [id number], LAB17 ####Manufacturing Helper: MARY SOTELO ([phone])[facility] ([facility])[address] [place] [address] ALT [Catalytic activity/Vol] 23 U/L Normal 0-34 [facility] Comment on above: Performed By: #### Dora AB103, [id number], LAB17 ####Manufacturing Helper: MARY SOTELO ([phone])[facility] ([facility])[address] [place] [address] Anion gap [Moles/Vol] 4 mmol/L Normal 3-13 [facility] Comment on above: Performed By: #### L AB103, [id number], LAB17 ####Manufacturing Helper: MARY SOTELO ([phone])[facility] ([facility])[address] [place] [address] AST [Catalytic activity/Vol] 44 U/L Normal 15-46 [facility] Comment on above: Performed By: #### L AB103, [id number], LAB17 ####Manufacturing Helper: MARY SOTELO ([phone])[facility])[address] [place] [address] Bilirubin [Mass/Vol] 0.5 mg/dL Normal 0.2-1.3 [facility] Comment on above: Performed By: #### L AB103, [id number], LAB17 ####Manufacturing Helper: MARY SOTELO ([phone])[facility] ([facility])[address] [place] [address] Calcium [Mass/Vol] 7.3 mg/dL Low 8.4-10.4 [facility] Comment on above: Performed By: #### Dora AB103, [id number], LAB17 ####Manufacturing Helper: MARY SOTELO ([phone])[facility] ([facility])[address] [place] [address] Chloride [Moles/Vol] 102 mmol/L Normal 98-107 [facility] Comment on above: Performed By: #### Dora AB103, [id number], LAB17 ####Manufacturing Helper: MARY SOTELO ([phone])[facility] ([facility])[address] [place] [address] CO2 [Moles/Vol] 24 mmol/L Normal 22-30 [facility] Comment on above: Performed By: #### Dora AB103, [id number], LAB17 ####Manufacturing Helper: MARY SOTELO ([phone])[facility] ([facility])[address] [place] [address] Creatinine [Mass/Vol] 1.50 mg/dL High 0.52-1.04 [facility] Comment on above: Performed By: #### Dora AB103, [id number], LAB17 ####Manufacturing Helper: MARY SOTELO ([phone])[facility] ([facility])[address] [place] [address] [place] GLOMERULAR FILTRATION RATE ML/MIN/1.73 SQ M.PREDICTED 38.8 mL/min/1.73m*2 Low >60.0 [facility] Comment on above: Result Comment: Calc ulation based on the Chronic Kidney Disease Epidemiology Collaboration (CKD-EPI) equation refit without adjustment for race Performed By: #### L AB103, [id number], LAB17 ####Manufacturing Helper: MARY SOTELO ([phone])[facility] ([facility])[address] [place] [address] [place] Glucose [Mass/Vol] 149 mg/dL High 70-100 [facility] Comment on above: Performed By: #### L AB103, [id number], LAB17 ####Manufacturing Helper: MARY SOTELO ([phone])[facility])[address] [place] [address] Potassium [Moles/Vol] 4.5 mmol/L Normal 3.5-5.1 [facility] Comment on above: Performed By: #### L AB103, [id number], LAB17 ####Manufacturing Helper: MARY SOTELO ([phone])[facility] ([facility])[address] [place] [address] Protein [Mass/Vol] 4.6 g/dL Low 6.3-8.2 [facility] Comment on above: Performed By: #### L AB103, [id number], LAB17 ####Manufacturing Helper: MARY SOTELO ([phone])[facility] ([facility])[address] [place] [address] Sodium [Moles/Vol] 130 mmol/L Low 135-145 [facility] Comment on above: Performed By: #### L AB103, [id number], LAB17 ####Manufacturing Helper: MARY SOTELO ([phone])[facility])[address] [place] [address] Urea nitrogen [Mass/Vol] 31 mg/dL High 7-17 [facility] Comment on above: Performed By: #### L AB103, [id number], LAB17 ####Manufacturing Helper: MARY SOTELO ([phone])[facility])[address] [place] [address] [place] Consulton 07-28-2024 Consult Normal [facility] ECG 12-LEADon 07-28-2024 ECG 12-LEAD IMPRESSION: Sinus rhythm Multiple ventricular premature complexes Anterior infarct, old Borderline T abnormalities Electronically Signed On 07-28-2024 12:41:46 EDT by Keisha Acosta Normal [facility] IDNon 07-28-2024 IDAnia Normal [facility] MAGNESIUMon 07-28-2024 Magnesium [Mass/Vol] 2.7 mg/dL High 1.6-2.3 [facility] Comment on above: Performed By: #### L AB103, [id number], LAB17 ####Manufacturing Helper: MARY SOTELO ([phone])[facility] [place] [address] Magnesium [Mass/Vol] 2.2 mg/dL Normal 1.6-2.3 [facility] Comment on above: Performed By: #### L AB103, [id number], LAB15 ####Manufacturing Helper: MARY SOTELO ([phone])[facility] [place] [address] PHOSPHORUSon 07-28-2024 Phosphate [Mass/Vol] 3.5 mg/dL Normal 2.5-4.5 [facility] Comment on above: Performed By: #### L AB103, [id number], LAB17 ####Manufacturing Helper: MARY SOTELO ([phone])[facility] [place] [address] Phosphate [Mass/Vol] 3.6 mg/dL Normal 2.5-4.5 [facility] Comment on above: Performed By: #### L AB103, [id number], LAB15 ####Manufacturing Helper: MARY SOTELO ([phone])[facility] ([facility])[address] [place] [address] Progress Noteon 07-28-2024 Progress Note Normal [facility] Progress Note Normal [facility] Progress Note Normal [facility] Progress Note Normal [facility] RENAL FUNCTION PANELon 07-28 Albumin [Mass/Vol] 2.2 g/dL Low 3.5-5.0 [facility] Comment on above: Performed By: #### L [id number] ####Manufacturing Helper: MARY SOTELO ([phone])[facility] ([facility])[address] [place] [address] Anion gap [Moles/Vol] 0 mmol/L Low 3-13 [facility] Comment on above: Performed By: #### L [id number] ####Manufacturing Helper: MARY SOTELO ([phone])[facility] ([facility])[address] [place] [address] Calcium [Mass/Vol] 7.4 mg/dL Low 8.4-10.4 [facility] Comment on above: Performed By: #### L [id number] ####Manufacturing Helper: MARY SOTELO ([phone])[facility] [place] [address] [place] Chloride [Moles/Vol] 104 mmol/L Normal 98-107 [facility] Comment on above: Performed By: #### L [id number] ####Manufacturing Helper: MARY SOTELO ([phone])[facility] ([facility])[address] [place] [address] CO2 [Moles/Vol] 26 mmol/L Normal 22-30 [facility] Comment on above: Performed By: #### L [id number] ####Manufacturing Helper: MARY SOTELO ([phone])[facility] ([facility])[address] [place] [address] Creatinine [Mass/Vol] 1.26 mg/dL High 0.52-1.04 [facility] Comment on above: Performed By: #### L [id number] ####Manufacturing Helper: MARY SOTELO ([phone])[facility] ([facility])[address] [place] [address] [place] GLOMERULAR FILTRATION RATE ML/MIN/1.73 SQ M.PREDICTED 47.8 mL/min/1.73m*2 Low >60.0 [facility] Comment on above: Result Comment: Calc ulation based on the Chronic Kidney Disease Epidemiology Collaboration (CKD-EPI) equation refit without adjustment for race Performed By: #### L [id number] ####Manufacturing Helper: MARY SOTELO ([phone])[facility] ([facility])[address] [place] [address] [place] Glucose [Mass/Vol] 123 mg/dL High 70-100 [facility] Comment on above: Performed By: #### L [id number] ####Manufacturing Helper: MARY SOTELO ([phone])[facility] ([facility])[address] [place] [address] [place] Phosphate [Mass/Vol] 2.4 mg/dL Low 2.5-4.5 [facility] Comment on above: Performed By: #### L [id number] ####Manufacturing Helper: MARY SOTELO ([phone])[facility] [place] [address] [place] Potassium [Moles/Vol] 4.6 mmol/L Normal 3.5-5.1 [facility] Comment on above: Performed By: #### L AB19 ####Manufacturing Helper: MARY SOTELO ([phone])[facility] [place] [address] Sodium [Moles/Vol] 130 mmol/L Low 135-145 [facility] Comment on above: Performed By: #### L AB19 ####Manufacturing Helper: MARY SOTELO ([phone])[facility] [place] [address] [place] Urea nitrogen [Mass/Vol] 28 mg/dL High 7-17 [facility] Comment on above: Performed By: #### L AB19 ####Manufacturing Helper: MARY SOTELO ([phone])[facility] [place] [address] Albumin [Mass/Vol] 2.1 g/dL Low 3.5-5.0 [facility] Comment on above: Performed By: #### L AB19 ####Manufacturing Helper: MARY SOTELO ([phone])[facility] [place] [address] [place] Anion gap [Moles/Vol] 3 mmol/L Normal 3-13 [facility] Comment on above: Performed By: #### L AB19 ####Manufacturing Helper: MARY SOTELO ([phone])[facility] [place] [address] [place] Calcium [Mass/Vol] 7.8 mg/dL Low 8.4-10.4 [facility] Comment on above: Performed By: #### L AB19 ####Manufacturing Helper: MARY SOTELO ([phone])[facility] ([facility])[address] [place] [address] Chloride [Moles/Vol] 103 mmol/L Normal 98-107 [facility] Comment on above: Performed By: #### L AB19 ####Manufacturing Helper: MARY SOTELO ([phone])[facility] [place] [address] CO2 [Moles/Vol] 26 mmol/L Normal 22-30 [facility] Comment on above: Performed By: #### L AB19 ####Manufacturing Helper: MARY SOTELO ([phone])[facility] [place] [address] Creatinine [Mass/Vol] 1.33 mg/dL High 0.52-1.04 [facility] Comment on above: Performed By: #### L AB19 ####Manufacturing Helper: MARY SOTELO ([phone])[facility] ([facility])[address] [place] [address] [place] GLOMERULAR FILTRATION RATE ML/MIN/1.73 SQ M.PREDICTED 44.8 mL/min/1.73m*2 Low >60.0 [facility] Comment on above: Result Comment: Calc ulation based on the Chronic Kidney Disease Epidemiology Collaboration (CKD-EPI) equation refit without adjustment for race Performed By: #### L AB19 ####Manufacturing Helper: MARY SOTELO ([phone])[facility] [place] [address] [place] Glucose [Mass/Vol] 139 mg/dL High 70-100 [facility] Comment on above: Performed By: #### L AB19 ####Manufacturing Helper: MARY SOTELO ([phone])[facility] [place] [address] [place] Phosphate [Mass/Vol] 2.7 mg/dL Normal 2.5-4.5 [facility] Comment on above: Performed By: #### L AB19 ####Manufacturing Helper: MARY SOTELO ([phone])[facility] ([facility])[address] [place] [address] Potassium [Moles/Vol] 4.2 mmol/L Normal 3.5-5.1 [facility] Comment on above: Performed By: #### L AB19 ####Manufacturing Helper: MARY SOTELO ([phone])[facility] ([facility])[address] [place] [address] Sodium [Moles/Vol] 131 mmol/L Low 135-145 [facility] Comment on above: Performed By: #### L AB19 ####Manufacturing Helper: MARY SOTELO ([phone])[facility] ([facility])[address] [place] [address] Urea nitrogen [Mass/Vol] 30 mg/dL High 7-17 [facility] Comment on above: Performed By: #### L AB19 ####Manufacturing Helper: MARY SOTELO ([phone])[facility] ([facility])[address] [place] [address] XR CHEST 1 VIEWon 07-28-2024 XR CHEST 1 VIEW Normal [facility] BASIC METABOLIC PANELon 07-05 Anion gap [Moles/Vol] 6 mmol/L Normal 3-13 [facility] Comment on above: Performed By: #### L AB103, LAB15 ####Manufacturing Helper: MARY SOTELO ([phone])[facility] ([facility])[address] [place] [address] Calcium [Mass/Vol] 7.3 mg/dL Low 8.4-10.4 [facility] Comment on above: Performed By: #### L AB103, LAB15 ####Manufacturing Helper: MARY SOTELO ([phone])[facility] ([facility])[address] [place] [address] Chloride [Moles/Vol] 102 mmol/L Normal 98-107 [facility] Comment on above: Performed By: #### L AB103, LAB15 ####Manufacturing Helper: MARY SOTELO ([phone])[facility] [place] [address] CO2 [Moles/Vol] 24 mmol/L Normal 22-30 [facility] Comment on above: Performed By: #### L AB103, LAB15 ####Manufacturing Helper: MARY SOTELO ([phone])[facility])[address] [place] [address] Creatinine [Mass/Vol] 2.18 mg/dL High 0.52-1.04 [facility] Comment on above: Performed By: #### L AB103, LAB15 ####Manufacturing Helper: MARY SOTELO ([phone])[facility])[address] [place] [address] GLOMERULAR FILTRATION RATE ML/MIN/1.73 SQ M.PREDICTED 24.7 mL/min/1.73m*2 Low >60.0 [facility] Comment on above: Result Comment: Calc ulation based on the Chronic Kidney Disease Epidemiology Collaboration (CKD-EPI) equation refit without adjustment for race Performed By: #### L AB103, LAB15 ####Manufacturing Helper: MARY SOTELO ([phone])[facility])[address] [place] [address] Glucose [Mass/Vol] 87 mg/dL Normal 70-100 [facility] Comment on above: Performed By: #### L AB103, LAB15 ####Manufacturing Helper: MARY SOTELO ([phone])[facility])[address] [place] [address] Potassium [Moles/Vol] 3.6 mmol/L Normal 3.5-5.1 [facility] Comment on above: Performed By: #### L AB103, LAB15 ####Manufacturing Helper: MARY SOTELO ([phone])[facility])[address] [place] [address] Sodium [Moles/Vol] 131 mmol/L Low 135-145 [facility] Comment on above: Performed By: #### L AB103, LAB15 ####Manufacturing Helper: MARY SOTELO ([phone])[facility] ([facility])[address] [place] [address] Urea nitrogen [Mass/Vol] 41 mg/dL High 7-17 [facility] Comment on above: Performed By: #### L AB103, LAB15 ####Manufacturing Helper: MARY SOTELO ([phone])[facility] ([facility])[address] [place] [address] BLOOD GAS ARTERIALon 024 Base excess Calc (Bld) [Moles/Vol] 0.4 mmol/L Normal -3.0-3.0 [facility] Comment on above: Performed By: #### L AB76 ####Manufacturing Helper: MARY SOTELO ([phone])[facility] ([facility])[address] [place] [address] CO2 [Moles/Vol] 26.5 mmol/L Normal 23.0-27.0 [facility] Comment on above: Performed By: #### L AB76 ####Manufacturing Helper: MARY SOTELO ([phone])[facility] ([facility])[address] [place] [address] HCO3 (Bld) [Moles/Vol] 25.3 mmol/L High 21.0-25.0 [facility] Comment on above: Performed By: #### L AB76 ####Manufacturing Helper: MARY SOTELO ([phone])[facility])[address] [place] [address] Hemoglobin (Bld) [Mass/Vol] 8.9 g/dL Normal Screen only [facility] Comment on above: Performed By: #### L AB76 ####Manufacturing Helper: MARY SOTELO ([phone])[facility])[address] [place] [address] OXYGEN SATURATION (%) IN ARTERIAL BLOOD 97.1 % Normal 95.0-100.0 [facility] Comment on above: Performed By: #### L AB76 ####Manufacturing Helper: MARY [phone])[facility] ([facility])[address] [place] [address] PCO2 ARTERIAL 41.9 mm Hg Normal >35.0-<45.0 [facility] Comment on above: Performed By: #### L AB76 ####Manufacturing Helper: MARY SOTELO ([phone])[facility] [place] [address] PH ARTERIAL 7.398 Normal 7.350-7.450 [facility] Comment on above: Performed By: #### L AB76 ####Manufacturing Helper: MARY SOTELO ([phone])[facility] ([facility])[address] [place] [address] PO2 ARTERIAL 100.1 mm Hg High 80.0-100.0 [facility] Comment on above: Performed By: #### L AB76 ####Manufacturing Helper: MARY SOTELO ([phone])[facility] ([facility])[address] [place] [address] SOURCE OF OXYGEN 30% Oxygen Normal [facility] Comment on above: Result Comment: vent Performed By: #### L AB76 ####Manufacturing Helper: MARY SOTELO ([phone])[facility] ([facility])[address] [place] [address] Base excess Calc (Bld) [Moles/Vol] -2.5000 mmol/L Normal -3.0-3.0 [facility] Comment on above: Order Comment: 30 mi n after vent changes Performed By: #### L AB76 ####Manufacturing Helper: MARY SOTELO ([phone])[facility] ([facility])[address] [place] [address] CO2 [Moles/Vol] 26.0 mmol/L Normal 23.0-27.0 [facility] Comment on above: Order Comment: 30 mi n after vent changes Performed By: #### L AB76 ####Manufacturing Helper: MARY SOTELO ([phone])[facility] ([facility])[address] [place] [address] [place] HCO3 (Bld) [Moles/Vol] 24.4 mmol/L Normal 21.0-25.0 [facility] Comment on above: Order Comment: 30 mi n after vent changes Performed By: #### L AB76 ####Manufacturing Helper: MARY SOTELO ([phone])[facility] ([facility])[address] [place] [address] Hemoglobin (Bld) [Mass/Vol] 9.3 g/dL Normal Screen only [facility] Comment on above: Order Comment: 30 mi n after vent changes Performed By: #### L AB76 ####Manufacturing Helper: MARY SOTELO ([phone])[facility] ([facility])[address] [place] [address] OXYGEN SATURATION (%) IN ARTERIAL BLOOD 97.1 % Normal 95.0-100.0 [facility] Comment on above: Order Comment: 30 mi n after vent changes Performed By: #### L AB76 ####Manufacturing Helper: MARY SOTELO ([phone])[facility] [place] [address] PCO2 ARTERIAL 52.3 mm Hg High >35.0-<45.0 [facility] Comment on above: Order Comment: 30 mi n after vent changes Performed By: #### L AB76 ####Manufacturing Helper: MARY SOTELO ([phone])[facility] [place] [address] PH ARTERIAL 7.286 Low 7.350-7.450 [facility] Comment on above: Order Comment: 30 mi n after vent changes Performed By: #### L AB76 ####Manufacturing Helper: MARY SOTELO ([phone])[facility] [place] [address] PO2 ARTERIAL 115.1 mm Hg High 80.0-100.0 [facility] Comment on above: Order Comment: 30 mi n after vent changes Performed By: #### L AB76 ####Manufacturing Helper: MARY SOTELO ([phone])[facility] [place] [address] SOURCE OF OXYGEN 30% Oxygen Normal [facility] Comment on above: Order Comment: 30 mi n after vent changes Result Comment: vent Performed By: #### L AB76 ####Manufacturing Helper: MARY SOTELO ([phone])[facility] ([facility])[address] [place] [address] Base excess Calc (Bld) [Moles/Vol] -6.7000 mmol/L Low -3.0-3.0 [facility] Comment on above: Performed By: #### L AB76 ####Manufacturing Helper: MARY SOTELO ([phone])[facility] ([facility])[address] [place] [address] CO2 [Moles/Vol] 22.8 mmol/L Low 23.0-27.0 [facility] Comment on above: Performed By: #### L AB76 ####Manufacturing Helper: MARY SOTELO ([phone])[facility] ([facility])[address] [place] [address] HCO3 (Bld) [Moles/Vol] 21.1 mmol/L Normal 21.0-25.0 [facility] Comment on above: Performed By: #### L AB76 ####Manufacturing Helper: MARY SOTELO ([phone])[facility] ([facility])[address] [place] [address] Hemoglobin (Bld) [Mass/Vol] 9.9 g/dL Normal Screen only [facility] Comment on above: Performed By: #### L AB76 ####Manufacturing Helper: MARY SOTELO ([phone])[facility] ([facility])[address] [place] [address] OXYGEN SATURATION (%) IN ARTERIAL BLOOD 96.9 % Normal 95.0-100.0 [facility] Comment on above: Performed By: #### L AB76 ####Manufacturing Helper: MARY SOTELO ([phone])[facility] ([facility])[address] [place] [address] PCO2 ARTERIAL 53.5 mm Hg High >35.0-<45.[address] [facility] Comment on above: Performed By: #### L AB76 ####Manufacturing Helper: MARY SOTELO ([phone])[facility] ([facility])[address] [place] [address] PH ARTERIAL 7.214 Low 7.350-7.450 [facility] Comment on above: Performed By: #### L AB76 ####Manufacturing Helper: MARY SOTELO ([phone])[facility] ([facility])[address] [place] [address] PO2 ARTERIAL 108.9 mm Hg High 80.0-100.0 [facility] Comment on above: Performed By: #### L AB76 ####Manufacturing Helper: MARY SOTELO ([phone])[facility] ([facility])[address] [place] [address] SOURCE OF OXYGEN Vent Normal [facility] Comment on above: Performed By: #### L AB76 ####Manufacturing Helper: MARY SOTELO ([phone])[facility] [place] [address] C3, BLOODon 07-27-2024 C3, BLOOD 56 mg/dL Low 88-165 [facility] Comment on above: Performed By: #### L AB152, [id number] ####Manufacturing Helper: MARLENY GUZMÁN ([phone])[facility] ([facility])[address] [place] [address] C4 COMPLEMENTon 07-27-2024 C4, BLOOD 10 mg/dL Low 14-44 [facility] Comment on above: Performed By: #### L AB152, [id number] ####Manufacturing Helper: MARLENY GUZMÁN ([phone])[facility] ([facility])[address] [place] [address] [place] CALCIUM, IONIZEDon 4 CALCIUM IONIZED 4.00 mg/dL Low 4.30-5.20 [facility] Comment on above: Performed By: #### L AB54 ####Manufacturing Helper: MARY SOTELO ([phone])[facility] [place] [address] PH, IONIZED CALCIUM 7.50 High 7.31-7.46 [facility] Comment on above: Performed By: #### L AB54 ####Manufacturing Helper: MARY SOTELO ([phone])[facility] ([facility])[address] [place] [address] CALCIUM IONIZED 4.20 mg/dL Low 4.30-5.20 [facility] Comment on above: Performed By: #### L AB54 ####Manufacturing Helper: MARY SOTELO ([phone])[facility])[address] [place] [address] PH, IONIZED CALCIUM 7.32 Normal 7.31-7.46 [facility] Comment on above: Performed By: #### L AB54 ####Manufacturing Helper: MARY SOTELO ([phone])[facility])[address] [place] [address] CALCIUM IONIZED 3.70 mg/dL Low 4.30-5.20 [facility] Comment on above: Performed By: #### L AB54 ####Manufacturing Helper: MARY SOTELO ([phone])[facility])[address] [place] [address] PH, IONIZED CALCIUM 7.22 Low 7.31-7.46 [facility] Comment on above: Performed By: #### L AB54 ####Manufacturing Helper: MARY SOTELO ([phone])[facility])[address] [place] [address] CARECOORDon 07-27-2024 CARECOORD Normal [facility] CBC WITH AUTO DIFFERENTIALon 07-27-2024 Erythrocyte distribution width (RBC) [Ratio] 15.3 % High 11.5-15.0 [facility] Comment on above: Performed By: #### L [id number], [id number] ####Manufacturing Helper: MARY SOTELO ([phone])[facility])[address] [place] [address] Hematocrit (Bld) [Volume fraction] 27.2 % Low 35.0-47.0 [facility] Comment on above: Performed By: #### L [id number], [id number] ####Manufacturing Helper: MARY SOTELO ([phone])[facility])[address] [place] [address] Hemoglobin (Bld) [Mass/Vol] 8.8 g/dL Low 11.7-16.0 [facility] Comment on above: Performed By: #### L [id number], [id number] ####Manufacturing Helper: MARY SOTELO ([phone])[facility])[address] [place] [address] MCH (RBC) [Entitic mass] 28.5 pg Normal 26.0-34.0 [facility] Comment on above: Performed By: #### L [id number], [id number] ####Manufacturing Helper: MARY SOTELO ([phone])[facility] ([facility])[address] [place] [address] MCHC 32.4 % Normal 30.5-36.0 [facility] Comment on above: Performed By: #### L [id number], [id number] ####Manufacturing Helper: MARY SOTELO ([phone])[facility])[address] [place] [address] MCV (RBC) [Entitic vol] 88.0 fL Normal 77.0-99.0 [facility] Comment on above: Performed By: #### L [id number], [id number] ####Manufacturing Helper: MARY SOTELO ([phone])[facility])[address] [place] [address] Platelet mean volume (Bld) [Entitic vol] 10.4 fL Normal 9.0-12.7 [facility] Comment on above: Performed By: #### L [id number], [id number] ####Manufacturing Helper: MARY SOTELO ([phone])[facility])[address] [place] [address] Platelets (Bld) [#/Vol] 186 10*3/uL Normal 140-440 [facility] Comment on above: Performed By: #### Dora [id number], [id number] ####Manufacturing Helper: MARY SOTELO ([phone])[facility] ([facility])[address] [place] [address] RBC (Bld) [#/Vol] 3.09 10*6/uL Low 3.80-5.20 [facility] Comment on above: Performed By: #### Dora [id number], [id number] ####Manufacturing Helper: MARY SOTELO ([phone])[facility] ([facility])[address] [place] [address] WBC (Bld) [#/Vol] 14.5 10*3/uL High 3.6-10.7 [facility] Comment on above: Performed By: #### Dora [id number], [id number] ####Manufacturing Helper: MARY SOTELO ([phone])[facility] ([facility])[address] [place] [address] CKon 07-27-2024 CK [Catalytic activity/Vol] 865 U/L High 30-170 [facility] Comment on above: Performed By: #### L AB62, LAB17, [id number], [id number] ####Manufacturing Helper: MARY SOTELO ([phone])[facility] ([facility])[address] [place] [address] COMPREHENSIVE METABOLIC PANE [place] 07-27-2024 Albumin [Mass/Vol] 2.4 g/dL Low 3.5-5.0 [facility] Comment on above: Performed By: #### L AB62, LAB17, [id number], [id number] ####Manufacturing Helper: MARY SOTELO ([phone])[facility] ([facility])[address] [place] [address] ALP [Catalytic activity/Vol] 66 U/L Normal 38-126 [facility] Comment on above: Performed By: #### L AB62, LAB17, [id number], [id number] ####Manufacturing Helper: MARY SOTELO ([phone])[facility] ([facility])[address] [place] [address] ALT [Catalytic activity/Vol] 19 U/L Normal 0-34 [facility] Comment on above: Performed By: #### L AB62, LAB17, [id number], [id number] ####Manufacturing Helper: MARY SOTELO ([phone])[facility] ([facility])[address] [place] [address] Anion gap [Moles/Vol] 11 mmol/L Normal 3-13 [facility] Comment on above: Performed By: #### L AB62, LAB17, [id number], [id number] ####Manufacturing Helper: MARY SOTELO ([phone])[facility] ([facility])[address] [place] [address] AST [Catalytic activity/Vol] 28 U/L Normal 15-46 [facility] Comment on above: Performed By: #### L AB62, LAB17, [id number], [id number] ####Manufacturing Helper: MARY SOTELO ([phone])[facility] ([facility])[address] [place] [address] Bilirubin [Mass/Vol] 0.3 mg/dL Normal 0.2-1.3 [facility] Comment on above: Performed By: #### L AB62, LAB17, RLT508, [id number] ####Manufacturing Helper: MARY SOTELO ([phone])[facility] ([facility])[address] [place] [address] Calcium [Mass/Vol] 6.5 mg/dL Low 8.4-10.4 [facility] Comment on above: Performed By: #### L AB62, LAB17, RGE479, VSD717 ####Manufacturing Helper: MARY SOTELO ([phone])[facility])[address] [place] [address] Chloride [Moles/Vol] 101 mmol/L Normal 98-107 [facility] Comment on above: Performed By: #### L AB62, LAB17, [id number], [id number] ####Manufacturing Helper: MARY SOTELO ([phone])[facility] ([facility])[address] [place] [address] [place] CO2 [Moles/Vol] 18 mmol/L Low 22-30 [facility] Comment on above: Performed By: #### L AB62, LAB17, [id number], [id number] ####Manufacturing Helper: MARY SOTELO ([phone])[facility] ([facility])[address] [place] [address] Creatinine [Mass/Vol] 4.00 mg/dL High 0.52-1.04 [facility] Comment on above: Performed By: #### L AB62, LAB17, [id number], [id number] ####Manufacturing Helper: MARY SOTELO ([phone])[facility] ([facility])[address] [place] [address] GLOMERULAR FILTRATION RATE ML/MIN/1.73 SQ M.PREDICTED 11.9 mL/min/1.73m*2 Low >60.0 [facility] Comment on above: Result Comment: Calc ulation based on the Chronic Kidney Disease Epidemiology Collaboration (CKD-EPI) equation refit without adjustment for race Performed By: #### L AB62, LAB17, RNU333, [id number] ####Manufacturing Helper: MARY SOTELO ([phone])[facility] ([facility])[address] [place] [address] Glucose [Mass/Vol] 254 mg/dL High 70-100 [facility] Comment on above: Performed By: #### L AB62, LAB17, XIC326, QUL060 ####Manufacturing Helper: MARY SOTELO ([phone])[facility])[address] [place] [address] Potassium [Moles/Vol] 4.3 mmol/L Normal 3.5-5.1 [facility] Comment on above: Performed By: #### L AB62, LAB17, JQP768, EOG471 ####Manufacturing Helper: MARY SOTELO ([phone])[facility])[address] [place] [address] Protein [Mass/Vol] 4.9 g/dL Low 6.3-8.2 [facility] Comment on above: Performed By: #### L AB62, LAB17, CDR266, RMO196 ####Manufacturing Helper: MARY SOTELO ([phone])[facility] ([facility])[address] [place] [address] Sodium [Moles/Vol] 130 mmol/L Low 135-145 [facility] Comment on above: Performed By: #### L AB62, LAB17, KRJ543, ZBR090 ####Manufacturing Helper: MARY SOTELO ([phone])[facility] ([facility])[address] [place] [address] Urea nitrogen [Mass/Vol] 66 mg/dL High 7-17 [facility] Comment on above: Performed By: #### L AB62, LAB17, BKM494, [id number] ####Manufacturing Helper: MARY SOTELO ([phone])[facility] ([facility])[address] [place] [address] Consulton 07-27-2024 Consult Normal [facility] Consult Normal [facility] Consult Normal [facility] ECG 12-LEADon 07-27-2024 ECG 12-LEAD IMPRESSION: Sinus rhythm Short CT interval Left anterior fascicular block Anteroseptal infarct, age indeterminate Nonspecific T abnormalities, lateral leads Electronically Signed On 07-27-2024 07:43:40 EDT by Mira Byrd Normal [facility] FREE T4on 07-27-2024 Free T4 [Mass/Vol] 1.67 ng/dL Normal 0.78-2.19 [facility] Comment on above: Performed By: #### L [id number] ####Manufacturing Helper: MARY SOTELO ([phone])[facility] ([facility])[address] [place] [address] HEPATITIS B SURFACE ANTIBODY on 07-27-2024 HEPATITIS B VIRUS SURFACE AB <8.0 Normal [facility] Comment on above: Result Comment: ORDE R COMMENTS:Interpretation:<8.0 Non-Reactive8.0-11.9 Equivocal>= 12.0 Ab DetectedNote: If an equivocal result is interpreted, an antibody status is unable to be determined. Collect new specimen if clinically indicated. Performed By: #### L [id number], [id number] ####Manufacturing Helper: MARY SOTELO ([phone])[facility])[address] [place] [address] HEPATITIS B SURFACE ANTIGENo n 07-27-2024 HEPATITIS B VIRUS SURFACE AG Not detected Normal Not Detected [facility] Comment on above: Performed By: #### L [id number], [id number] ####Manufacturing Helper: MARY SOTELO ([phone])[facility])[address] [place] [address] MAGNESIUMon 07-27-2024 Magnesium [Mass/Vol] 1.9 mg/dL Normal 1.6-2.3 [facility] Comment on above: Performed By: #### L [id number], LAB15 ####Manufacturing Helper: MARY SOTELO ([phone])[facility])[address] [place] [address] Magnesium [Mass/Vol] 2.0 mg/dL Normal 1.6-2.3 [facility] Comment on above: Performed By: #### L AB62, LAB17, [id number], [id number] ####Manufacturing Helper: MARY SOTELO ([phone])[facility])[address] [place] [address] MANUAL DIFFERENTIAL (CELLAVI ESPINOZA)on 07-27-2024 ANISOCYTOSIS PRESENCE IN BLOOD BY LIGHT MICROSCOPY Slight Abnormal (none) [facility] Comment on above: Performed By: #### L [id number], [id number] ####Manufacturing Helper: MARY SOTELO ([phone])[facility])[address] [place] [address] BAND NEUTROPHILS TOTAL PER COUNTED LEUKOCYTES BY MANUAL COUNT Normal [facility] Comment on above: Performed By: #### L [id number], [id number] ####Manufacturing Helper: MARY SOTELO ([phone])[facility])[address] [place] [address] BASOPHILIC STIPPLING PRESENCE IN BLOOD BY LIGHT MICROSCOPY Rare Abnormal (none) [facility] Comment on above: Performed By: #### L [id number], [id number] ####Manufacturing Helper: MARY SOTELO ([phone])[facility] ([facility])[address] [place] [address] [place] BASOPHILS TOTAL PER COUNTED LEUKOCYTES BY MANUAL COUNT Normal [facility] Comment on above: Performed By: #### L [id number], [id number] ####Manufacturing Helper: MARY SOTELO ([phone])[facility] ([facility])[address] [place] [address] [place] BLASTS TOTAL PER COUNTED LEUKOCYTES BY MANUAL COUNT Normal [facility] Comment on above: Performed By: #### L [id number], [id number] ####Manufacturing Helper: MARY SOTELO ([phone])[facility] ([facility])[address] [place] [address] EOSINOPHILS TOTAL PER COUNTED LEUKOCYTES BY MANUAL COUNT [facility] Comment on above: Performed By: #### L [id number], [id number] ####Manufacturing Helper: MARY SOTELO ([phone])[facility] ([facility])[address] [place] [address] [place] LYMPHOCYTE VARIANT/100 LEUKOCYTES IN BLOOD- CELLAVISION 1 % High <=0 [facility] Comment on above: Performed By: #### L [id number], [id number] ####Manufacturing Helper: MARY SOTELO ([phone])[facility] ([facility])[address] [place] [address] [place] LYMPHOCYTES (10*3/UL) IN BLOOD-CELLAVISION 0.7 10*3/uL Low 1.0-4.3 [facility] Comment on above: Performed By: #### L [id number], [id number] ####Manufacturing Helper: MARY SOTELO ([phone])[facility] ([facility])[address] [place] [address] [place] LYMPHOCYTES TOTAL PER COUNTED LEUKOCYTES BY MANUAL COUNT 5 [facility] Comment on above: Performed By: #### L [id number], [id number] ####Manufacturing Helper: MARY SOTELO ([phone])[facility] [place] [address] [place] LYMPHOCYTES/100 LEUKOCYTES IN BLOOD-CELLAVISION 5 % Low 15-45 [facility] Comment on above: Performed By: #### L [id number], [id number] ####Manufacturing Helper: MARY SOTELO ([phone])[facility] ([facility])[address] [place] [address] [place] MACROCYTES (PRESENCE) IN BLOOD BY LIGHT MICROSCOPY Slight Abnormal (none) [facility] Comment on above: Performed By: #### L [id number], [id number] ####Manufacturing Helper: MARY SOTELO ([phone])[facility] ([facility])[address] [place] [address] METAMYELOCYTES TOTAL PER COUNTED LEUKOCYTES BY MANUAL COUNT Normal [facility] Comment on above: Performed By: #### L [id number], [id number] ####Manufacturing Helper: MARY SOTELO ([phone])[facility] ([facility])[address] [place] [address] MICROCYTES (PRESENCE) IN BLOOD BY LIGHT MICROSCOPY Slight Abnormal (none) [facility] Comment on above: Performed By: #### L [id number], [id number] ####Manufacturing Helper: MARY SOTELO ([phone])[facility] ([facility])[address] [place] [address] [place] MONOCYTES (10*3/UL) IN BLOOD-CELLAVISION 0.7 10*3/uL Normal 0.0-0.9 [facility] Comment on above: Performed By: #### L [id number], [id number] ####Manufacturing Helper: MARY SOTELO ([phone])[facility] ([facility])[address] [place] [address] [place] MONOCYTES TOTAL PER COUNTED LEUKOCYTES BY MANUAL COUNT 5 Normal [facility] Comment on above: Performed By: #### L [id number], [id number] ####Manufacturing Helper: MARY SOTELO ([phone])[facility] ([facility])[address] [place] [address] [place] MONOCYTES/100 LEUKOCYTES IN BLOOD-KACEY 5 % Normal 5-13 [facility] Comment on above: Performed By: #### L [id number], [id number] ####Manufacturing Helper: MARY SOTELO ([phone])[facility] ([facility])[address] [place] [address] [place] MYELOCYTES COUNTED BY MANUAL COUNT Normal [facility] Comment on above: Performed By: #### L [id number], [id number] ####Manufacturing Helper: MARY SOTELO ([phone])[facility] ([facility])[address] [place] [address] [place] NEUTROPHILS TOTAL PER COUNTED LEUKOCYTES BY MANUAL COUNT 90 Normal [facility] Comment on above: Performed By: #### L [id number], [id number] ####Manufacturing Helper: MARY SOTELO ([phone])[facility] ([facility])[address] [place] [address] [place] OVALOCYTES PRESENCE IN BLOOD BY LIGHT MICROSCOPY Slight Abnormal (none) [facility] Comment on above: Performed By: #### L [id number], [id number] ####Manufacturing Helper: MARY SOTELO ([phone])[facility] ([facility])[address] [place] [address] [place] POIKILOCYTOSIS (PRESENCE) IN BLOOD BY LIGHT MICROSCOPY Slight Abnormal (none) [facility] Comment on above: Performed By: #### L [id number], [id number] ####Manufacturing Helper: MARY SOTELO ([phone])[facility] ([facility])[address] [place] [address] [place] POLYCHROMASIA IN BLOOD BY LIGHT MICROSCOPY Slight Abnormal (none) [facility] Comment on above: Performed By: #### L [id number], [id number] ####Manufacturing Helper: MARY SOTELO ([phone])[facility] ([facility])[address] [place] [address] [place] PROMYELOCYTES TOTAL PER COUNTED LEUKOCYTES BY MANUAL COUNT Normal [facility] Comment on above: Performed By: #### L [id number], [id number] ####Manufacturing Helper: MARY SOTELO ([phone])[facility] ([facility])[address] [place] [address] [place] RBC MORPHOLOGY IN BLOOD abnormal Normal [facility] Comment on above: Performed By: #### L [id number], [id number] ####Manufacturing Helper: MARY SOTELO ([phone])[facility] ([facility])[address] [place] [address] [place] SEGMENTED NEUTROPHILS (10*3/UL) IN BLOOD-CELLAVISION 12.9 10*3/uL High 1.8-7.5 [facility] Comment on above: Performed By: #### L [id number], [id number] ####Manufacturing Helper: MARY OSTELO ([phone])[facility] ([facility])[address] [place] [address] [place] SEGMENTED NEUTROPHILS/100 LEUKOCYTES-CE 89 % High 38-82 [facility] Comment on above: Performed By: #### L [id number], [id number] ####Manufacturing Helper: MARY SOTELO ([phone])[facility] ([facility])[address] [place] [address] [place] UNCLASSIFIED CELLS TOTAL PER COUNTED LEUKOCYTES BY MANUAL COUNT Normal [facility] Comment on above: Performed By: #### L [id number], [id number] ####Manufacturing Helper: MARY SOTELO ([phone])[facility] ([facility])[address] [place] [address] [place] VARIANT LYMPHOCYTES (10*3/UL) IN BLOOD-CELLAVISION 0.1 10*3/uL High <=0.0 [facility] Comment on above: Performed By: #### L [id number], [id number] ####Manufacturing Helper: MARY SOTELO ([phone])[facility])[address] [place] [address] [place] VARIANT LYMPHOCYTES TOTAL PER COUNTED LEUKOCYTES BY MANUAL COUNT 1 Normal [facility] Comment on above: Performed By: #### L [id number], [id number] ####Manufacturing Helper: MARY [phone])[facility] ([facility])[address] [place] [address] PHOSPHORUSon 07-27-2024 Phosphate [Mass/Vol] 6.8 mg/dL High 2.5-4.5 [facility] Comment on above: Performed By: #### L AB62, [id number], [id number], [id number] ####Manufacturing Helper: MARY SOTELO ([phone])[facility] ([facility])[address] [place] [address] PNEUMONIA PCR PANELon 2023 PNEUMONIA PCR PANEL Normal [facility] Comment on above: Performed By: #### L [id number] ####Manufacturing Helper: MARY SOTELO ([phone])[facility] ([facility])[address] [place] [address] Progress Noteon 07-27-2024 Progress Note Normal [facility] Progress Note OCCUPATIONAL THERAPY [facility] Name/MRN: Sandy Deng ([id number]) Date: 07/27/2024 Intubated, sedated, on bed rest. Will follow. Delmar Ling, OT Normal [facility] Progress Note PHYSICAL THERAPY [facility] Name/MRN: Sandy Deng ([id number]) Date: 07/27/2024 Screen Note. Pt remains intubated and sedated, and on strict bed rest orders. Will continue to follow and re-attempt as able. Jennifer Saldaña, SPT Normal [facility] Progress Note Normal [facility] Progress [facility] Note [facility] RENAL FUNCTION PANELon 07-27 Albumin [Mass/Vol] 2.4 g/dL Low 3.5-5.0 [facility] Comment on above: Performed By: #### L [id number] ####Manufacturing Helper: MARY SOTELO ([phone])[facility] ([facility])[address] [place] [address] Anion gap [Moles/Vol] 4 mmol/L Normal 3-13 [facility] Comment on above: Performed By: #### L [id number] ####Manufacturing Helper: MARY SOTELO ([phone])[facility] ([facility])[address] [place] [address] Calcium [Mass/Vol] 7.5 mg/dL Low 8.4-10.4 [facility] Comment on above: Performed By: #### L AB19 ####Manufacturing Helper: MARY SOTELO ([phone])[facility] [place] [address] [place] Chloride [Moles/Vol] 102 mmol/L Normal 98-107 [facility] Comment on above: Performed By: #### L AB19 ####Manufacturing Helper: MARY SOTELO ([phone])[facility] ([facility])[address] [place] [address] CO2 [Moles/Vol] 25 mmol/L Normal 22-30 [facility] Comment on above: Performed By: #### L AB19 ####Manufacturing Helper: MARY SOTELO ([phone])[facility] ([facility])[address] [place] [address] Creatinine [Mass/Vol] 2.81 mg/dL High 0.52-1.04 [facility] Comment on above: Performed By: #### L [id number] ####Manufacturing Helper: MARY SOTELO ([phone])[facility] ([facility])[address] [place] [address] [place] GLOMERULAR FILTRATION RATE ML/MIN/1.73 SQ M.PREDICTED 18.2 mL/min/1.73m*2 Low >60.0 [facility] Comment on above: Result Comment: Calc ulation based on the Chronic Kidney Disease Epidemiology Collaboration (CKD-EPI) equation refit without adjustment for race Performed By: #### L [id number] ####Manufacturing Helper: MARY SOTELO ([phone])[facility] ([facility])[address] [place] [address] [place] Glucose [Mass/Vol] 83 mg/dL Normal 70-100 [facility] Comment on above: Performed By: #### L AB19 ####Manufacturing Helper: MARY SOTELO ([phone])[facility] [place] [address] [place] Phosphate [Mass/Vol] 4.6 mg/dL High 2.5-4.5 [facility] Comment on above: Performed By: #### L [id number] ####Manufacturing Helper: MARY SOTELO ([phone])[facility] ([facility])[address] [place] [address] Potassium [Moles/Vol] 3.6 mmol/L Normal 3.5-5.1 [facility] Comment on above: Performed By: #### L [id number] ####Manufacturing Helper: MARY SOTELO ([phone])[facility] ([facility])[address] [place] [address] Sodium [Moles/Vol] 131 mmol/L Low 135-145 [facility] Comment on above: Performed By: #### L [id number] ####Manufacturing Helper: MARY SOTELO ([phone])[facility] ([facility])[address] [place] [address] Urea nitrogen [Mass/Vol] 49 mg/dL High 7-17 [facility] Comment on above: Performed By: #### L [id number] ####Manufacturing Helper: MARY SOTELO ([phone])[facility] ([facility])[address] [place] [address] [place] RESPIRATORY CULTURE AND STAI Non 07-27-2024 RESPIRATORY CULTURE AND STAIN Normal [facility] Comment on above: Performed By: #### L [id number] ####Manufacturing Helper: MARY SOTELO ([phone])[facility] ([facility])[address] [place] [address] [place] RESPIRATORY PATHOGENS PANEL BY PCRon 07-27-2024 RESPIRATORY PATHOGENS PANEL BY PCR Normal [facility] Comment on above: Performed By: #### L [id number] ####Manufacturing Helper: MARY SOTELO ([phone])[facility] ([facility])[address] [place] [address] [place] Renal Profileon 07-27-2024 ALB Normal 3.2-5.0 [facility] Comment on above: Result Comment: Canc elled via OM: Order cancelled - Patient discharged Performed By: #### L 500.3600 ####[facility] [address] [place], [address] BUN Normal 7-18 [facility] Comment on above: Result Comment: Canc elled via OM: Order cancelled - Patient discharged Performed By: #### L 500.3600 ####[facility] [address] [place], [address] BUN/CRE Normal 10-20 [facility] Comment on above: Result Comment: Canc elled via OM: Order cancelled - Patient discharged Performed By: #### L 500.3600 ####[facility] [address] [place], [address] CA,Total Normal 8.5-10.1 [facility] Comment on above: Result Comment: Canc elled via OM: Order cancelled - Patient discharged Performed By: #### L 500.3600 ####[facility] [address] [place], [address] CL Normal 98-107 [facility] Comment on above: Result Comment: Canc elled via OM: Order cancelled - Patient discharged Performed By: #### L 500.3600 ####[facility] [address] [place], [address] CO2 Normal 21.0-32.0 [facility] Comment on above: Result Comment: Canc elled via OM: Order cancelled - Patient discharged Performed By: #### L 500.3600 ####[facility] [address] [place], [address] CREAT,SERUM Normal 0.55-1.02 [facility] Comment on above: Result Comment: Canc elled via OM: Order cancelled - Patient discharged Performed By: #### L 500.3600 ####[facility] [address] [place], [address] EST GFR Normal >60 [facility] Comment on above: Result Comment: Canc elled via OM: Order cancelled - Patient discharged Performed By: #### L 500.3600 ####[facility] [address] [place], [address] EST GFR - AA Normal >60 [facility] Comment on above: Result Comment: Canc elled via OM: Order cancelled - Patient discharged Performed By: #### L 500.3600 ####[facility] [address] [place], [address] GLU Normal 74-106 [facility] Comment on above: Result Comment: Canc elled via OM: Order cancelled - Patient discharged Performed By: #### L 500.3600 ####[facility] [address] [place], [address] PHOS Normal 2.5-4.9 [facility] Comment on above: Result Comment: Canc elled via OM: Order cancelled - Patient discharged Performed By: #### L 500.3600 ####[facility] [address] [place], [address] Potassium Normal 3.5-5.1 [facility] Comment on above: Result Comment: Canc elled via OM: Order cancelled - Patient discharged Performed By: #### L 500.3600 ####[facility] [address] [place], [address] Renal Profile Normal 136-145 [facility] Comment on above: Result Comment: Canc elled via OM: Order cancelled - Patient discharged Performed By: #### L 500.3600 ####[facility] [address] [place], [address] TROPONIN Ion 07-27-2024 Troponin I.cardiac [Mass/Vol] 0.017 ng/mL Normal <0.034 [facility] Comment on above: Result Comment: ORDE R COMMENTS:Patients with high levels of Biotin oral intake (ie >5 mg/day) may have falsely decreased Troponin levels. Performed By: #### L [id number] ####Manufacturing Helper: MARY SOTELO ([phone])[facility] ([facility])[address] [place] [address] US RETROPERITONEUM LIMITEDon 07-27-2024 US RETROPERITONEUM LIMITED Normal [facility] Vitamin D 1,25-Dihydroxyon 0 07-27-2024 VIT D 1,25 DIHY 41.6 pg/mL Normal 24.8-81.5 [facility] Comment on above: Result Comment: Perf ormed at: - [facility] [id number] Director: Rico Lord MD, Phone: [phone] Performed By: #### L 506.1000, L100.0100, L500.4050, L509.1000, L3300.0960, L501.9985 ####[facility] [address] [place], [address] Abdomen Single View (Portabl e)on 07-26-2024 Abdomen Single View (Portable) Normal [facility] BLOOD GAS ARTERIALon 024 Base excess Calc (Bld) [Moles/Vol] -16.57411 mmol/L Low -3.0-3.0 [facility] Comment on above: Performed By: #### L AB76 ####Manufacturing Helper: MARY SOTELO ([phone])[facility] [place] [address] CO2 [Moles/Vol] 11.7 mmol/L Low 23.0-27.0 [facility] Comment on above: Performed By: #### L AB76 ####Manufacturing Helper: MARY SOTELO ([phone])[facility] ([facility])[address] [place] [address] HCO3 (Bld) [Moles/Vol] 10.7 mmol/L Low 21.0-25.0 [facility] Comment on above: Performed By: #### L AB76 ####Manufacturing Helper: MARY SOTELO ([phone])[facility] ([facility])[address] [place] [address] Hemoglobin (Bld) [Mass/Vol] 8.1 g/dL Normal Screen only [facility] Comment on above: Performed By: #### L AB76 ####Manufacturing Helper: MARY SOTELO ([phone])[facility] [place] [address] OXYGEN SATURATION (%) IN ARTERIAL BLOOD 94.9 % Low 95.0-100.0 [facility] Comment on above: Performed By: #### L AB76 ####Manufacturing Helper: MARY SOTELO ([phone])[facility] [place] [address] PCO2 ARTERIAL 30.4 mm Hg Low >35.0-<45.0 [facility] Comment on above: Performed By: #### L AB76 ####Manufacturing Helper: MARY SOTELO ([phone])[facility] ([facility])[address] [place] [address] PH ARTERIAL 7.166 Critically low 7.350-7.450 [facility] Comment on above: Performed By: #### L AB76 ####Manufacturing Helper: MARY SOTELO ([phone])[facility] ([facility])[address] [place] [address] PO2 ARTERIAL 95.4 mm Hg Normal 80.0-100.0 [facility] Comment on above: Performed By: #### L AB76 ####Manufacturing Helper: MARY SOTELO ([phone])[facility] [place] [address] SOURCE OF OXYGEN Vent Normal [facility] Comment on above: Performed By: #### L AB76 ####Manufacturing Helper: MARY SOTELO ([phone])[facility] [place] [address] Bedside Glucoseon 07-26-2024 FINGERSTICK GLU 290 mg/dL High 74-106 [facility] Comment on above: Result Comment: SHELLY GEMENT OF PATIENT CARE PER NURSING PROTOCOL Performed By: #### L 501.080 ####[facility] [address] [place], [address] FINGERSTICK GLU 224 mg/dL High 74-106 [facility] Comment on above: Result Comment: SHELLY GEMENT OF PATIENT CARE PER NURSING PROTOCOL Performed By: #### L 501.080 ####[facility] [address] [place], [address] FINGERSTICK GLU 193 mg/dL High 74-106 [facility] Comment on above: Result Comment: SHELLY GEMENT OF PATIENT CARE PER NURSING PROTOCOL Performed By: #### L 501.080 ####[facility] [address] [place], [address] Blood Gases by [facility] 024 Base excess Calc (Bld) [Moles/Vol] -15 mmol/L Low -2 to +2 [facility] Comment on above: Performed By: #### L 9000.0800 ####[facility] [address] [place], [address] Blood Gas Type ART [facility] Comment on above: Performed By: #### L 9000.0800 ####[facility] [address] [place], [address] CO2 [Moles/Vol] 18 mmol/L Normal [facility] Comment on above: Performed By: #### L 9000.0800 ####[facility] [address] [place], [address] FI02 50.0 [facility] Comment on above: Performed By: #### L 9000.0800 ####[facility] [address] [place], [address] HCO3 (Bld) [Moles/Vol] 16.3 mmol/L Low 22-26 [facility] Comment on above: Performed By: #### L 9000.0800 ####[facility] [address] [place], [address] Mode AC Normal [facility] Comment on above: Performed By: #### L 9000.0800 ####[facility] [address] [place], [address] O2 Delivery Dev Not entered [facility] Comment on above: Performed By: #### L 9000.0800 ####[facility] [address] [place], [address] pCO2 64.6 mmHg High 35-45 [facility] Comment on above: Performed By: #### L 9000.0800 ####[facility] [id number] [place], [address] PEEP 5 Normal [facility] Comment on above: Performed By: #### L 9000.0800 ####[facility] [address] [place], [address] pH (Bld) 7.01 [pH] Invalid Interpretation Code 7.35-7.45 [facility] Comment on above: Performed By: #### L 9000.0800 ####[facility] [address] [place], [address] PO2 127 mmHG High 75-100 [facility] Comment on above: Performed By: #### L 9000.0800 ####[facility] [address] [place], [address] Read Back By Yes [facility] Comment on above: Performed By: #### L 9000.0800 ####[facility] [address] [place], [address] Results To brown [facility] Comment on above: Performed By: #### L 9000.0800 ####[facility] [address] [place], [address] RR 16 Normal [facility] Comment on above: Performed By: #### L 8999.799 ####[facility] [address] [place], [address] SITE R Brach Normal [facility] Comment on above: Performed By: #### L 8999.08 ####[facility] [address] [place], [address] SO2 96 Normal 95-99 [facility] Comment on above: Performed By: #### L 8999.0800 ####[facility] [address] [place], [address] Time Given 12:36:55 Normal [facility] Comment on above: Performed By: #### L 8999.08 ####[facility] [address] [place], [address] Vt 400.0 mL Normal [facility] Comment on above: Performed By: #### L 8999.0800 ####[facility] [address] [place], [address] Base excess Calc (Bld) [Moles/Vol] -11 mmol/L Low -2 to +2 [facility] Comment on above: Performed By: #### L 8999.08 ####[facility] [address] [place], [address] Blood Gas Type ART Normal [facility] Comment on above: Performed By: #### L 8999.0800 ####[facility] [address] [place], [address] CO2 [Moles/Vol] 23 mmol/L Normal [facility] Comment on above: Performed By: #### L 8999.0800 ####[facility] [address] [place], [address] FI02 4.0 Normal [facility] Comment on above: Performed By: #### L 9000.0800 ####[facility] [address] [place], [address] HCO3 (Bld) [Moles/Vol] 20.1 mmol/L Low 22-[address] [facility] Comment on above: Performed By: #### L 9000.0800 ####[facility] [address] [place], [address] Mode Not entered [facility] Comment on above: Performed By: #### L 9000.0800 ####[facility] [address] [place], [address] O2 Delivery Dev Not entered Normal [facility] Comment on above: Performed By: #### L 9000.0800 ####[facility] [address] [place], [address] pCO2 82.1 mmHg Invalid Interpretation Code 35-45 [facility] Comment on above: Performed By: #### L 9000.0800 ####[facility] [address] [place], [address] pH (Bld) 7.00 [pH] Invalid Interpretation Code 7.35-7.45 [facility] Comment on above: Performed By: #### L 9000.0800 ####[facility] [address] [place], [address] PO2 119 mmHG High 75-100 [facility] Comment on above: Performed By: #### L 9000.0800 ####[facility] [address] [place], [address] Read Back By Yes Normal [facility] Comment on above: Performed By: #### L 9000.0800 ####[facility] [address] [place], [address] Results To José Miguel Normal [facility] Comment on above: Performed By: #### L 9000.0800 ####[facility] [address] [place], [address] SITE L Radial Normal [facility] Comment on above: Performed By: #### L 9000.0800 ####[facility] [address] [place], [address] SO2 95 Normal 95-99 [facility] Comment on above: Performed By: #### L 9000.0800 ####[facility] [address] [place], [address] Time Given 09:09:17 Normal [facility] Comment on above: Performed By: #### L 9000.0800 ####[facility] [address] [place], [place], [address] Brain/Head without Contrasto n 07-26-2024 Brain/Head without Contrast Normal [facility] Brain/Head without Contrast Normal [facility] CALCIUM, IONIZEDon CALCIUM IONIZED 2.80 mg/dL Low 4.30-5.20 [facility] Comment on above: Performed By: #### L AB54 ####Manufacturing Helper: MARY SOTELO ([phone])[address] PH, IONIZED CALCIUM 7.29 Low 7.31-7.46 [facility] Comment on above: Performed By: #### L AB54 ####Manufacturing Helper: MARY SOTELO ([phone])[address] CBC WITH AUTO DIFFERENTIALon 07-26-2024 Basophils (Bld) [#/Vol] 0.0 10*3/uL Normal 0.0-0.2 [facility] Comment on above: Performed By: #### L [id number] ####Manufacturing Helper: MARY SOTELO ([phone])[facility])[address] [place] [address] Basophils/100 WBC (Bld) 0.1 % Normal 0.0-2.0 [facility] Comment on above: Performed By: #### L [id number] ####Manufacturing Helper: MARY SOTELO ([phone])[facility])[address] [place] [address] Eosinophils (Bld) [#/Vol] 0.0 10*3/uL Normal 0.0-0.5 [facility] Comment on above: Performed By: #### L [id number] ####Manufacturing Helper: MARY SOTELO ([phone])[address] Eosinophils/100 WBC (Bld) 0.1 % Normal 0.0-6.0 [facility] Comment on above: Performed By: #### L [id number] ####Manufacturing Helper: MARY SOTELO ([phone])[facility])[address] [place] [address] Erythrocyte distribution width (RBC) [Ratio] 15.5 % High 11.5-15.0 [facility] Comment on above: Performed By: #### L [id number] ####Manufacturing Helper: MARY SOTELO ([phone])[address] Hematocrit (Bld) [Volume fraction] 31.3 % Low 35.0-47.0 [facility] Comment on above: Performed By: #### L [id number] ####Manufacturing Helper: MARY SOTELO ([phone])[facility])[address] [place] [address] Hemoglobin (Bld) [Mass/Vol] 10.1 g/dL Low 11.7-16.0 [facility] Comment on above: Performed By: #### L [id number] ####Manufacturing Helper: MARY SOTELO ([phone])[facility] [address] IMMATURE GRANS % 0.6 % Normal 0.0-2.0 [facility] Comment on above: Performed By: #### L [id number] ####Manufacturing Helper: MARY SOTELO ([phone])[facility])[address] [place] [address] IMMATURE GRANS ABSOLUTE 0.1 10*3/uL High <0.1 [facility] Comment on above: Performed By: #### L [id number] ####Manufacturing Helper: MARY SOTELO ([phone])[facility])[address] [place] [address] Lymphocytes (Bld) [#/Vol] 1.2 10*3/uL Normal 1.0-4.3 [facility] Comment on above: Performed By: #### L [id number] ####Manufacturing Helper: MARY SOTELO ([phone])[facility])[address] [place] [address] Lymphocytes/100 WBC (Bld) 6.2 % Low 15.0-45.0 [facility] Comment on above: Performed By: #### L [id number] ####Manufacturing Helper: MARY SOTELO ([phone])[facility])[address] [place] [address] MCH (RBC) [Entitic mass] 28.6 pg Normal 26.0-34.0 [facility] Comment on above: Performed By: #### L [id number] ####Manufacturing Helper: MARY SOTELO ([phone])[facility])[address] [place] [address] MCHC 32.3 % Normal 30.5-36.0 [facility] Comment on above: Performed By: #### L [id number] ####Manufacturing Helper: MARY SOTELO ([phone])[facility])[address] [place] [address] MCV (RBC) [Entitic vol] 88.7 fL Normal 77.0-99.0 [facility] Comment on above: Performed By: #### L [id number] ####Manufacturing Helper: MARY SOTELO ([phone])[facility] ([facility])[address] [place] [address] Monocytes (Bld) [#/Vol] 1.4 10*3/uL High 0.0-0.9 [facility] Comment on above: Performed By: #### L [id number] ####Manufacturing Helper: MARY SOTELO ([phone])[facility] ([facility])[address] [place] [address] Monocytes/100 WBC (Bld) 7.2 % Normal 5.0-13.0 [facility] Comment on above: Performed By: #### L [id number] ####Manufacturing Helper: MRAY SOTELO ([phone])[facility] ([facility])[address] [place] [address] NEUTROPHILS ABSOLUTE 16.1 10*3/uL High 1.8-7.5 [facility] Comment on above: Performed By: #### L [id number] ####Manufacturing Helper: MARY SOTELO ([phone])[facility] ([facility])[address] [place] [address] Neutrophils/100 WBC (Bld) 85.8 % High 38.0-82.0 [facility] Comment on above: Performed By: #### L [id number] ####Manufacturing Helper: MARY SOTELO ([phone])[facility] ([facility])[address] [place] [address] [place] NRBC 1.1 /100 WBCs Normal 0.0-2.0 [facility] Comment on above: Performed By: #### L [id number] ####Manufacturing Helper: MARY SOTELO ([phone])[facility])[address] [place] [address] Platelet mean volume (Bld) [Entitic vol] 11.0 fL Normal 9.0-12.7 [facility] Comment on above: Performed By: #### L [id number] ####Manufacturing Helper: MARY SOTELO ([phone])[facility] ([facility])[address] [place] [address] Platelets (Bld) [#/Vol] 244 10*3/uL Normal 140-440 [facility] Comment on above: Performed By: #### L [id number] ####Manufacturing Helper: MARY SOTELO ([phone])[facility])[address] [place] [address] RBC (Bld) [#/Vol] 3.53 10*6/uL Low 3.80-5.20 [facility] Comment on above: Performed By: #### L [id number] ####Manufacturing Helper: MARY SOTELO ([phone])[facility])[address] [place] [address] WBC (Bld) [#/Vol] 18.7 10*3/uL High 3.6-10.7 [facility] Comment on above: Performed By: #### L IS7316 ####Manufacturing Helper: MARY SOTELO ([phone])[facility] ([facility])[address] [place] [address] CBC-Complete Blood Cnt No Di ffon 07-26-2024 Erythrocyte distribution width (RBC) [Ratio] 15.0 % High 11.6-14.6 [facility] Comment on above: Performed By: #### L 100.0500, L500.3600 ####[facility] [address] [facility] [address] Hematocrit (Bld) [Volume fraction] 22.7 % Low 37-47 [facility] Comment on above: Performed By: #### L 100.0500, L500.3600 ####[facility] [address] [place], [address] Hemoglobin (Bld) [Mass/Vol] 6.9 g/dL Low 12.0-15.0 [facility] Comment on above: Performed By: #### L 100.0500, L500.3600 ####[facility] [address] [place], [address] MCH (RBC) [Entitic mass] 28.9 pg Normal 27.0-32.0 [facility] Comment on above: Performed By: #### L 100.0500, L500.3600 ####[facility] [address] [place], [address] MCHC (RBC) [Mass/Vol] 30.4 g/dL Low 32-36 [facility] Comment on above: Performed By: #### L 100.0500, L500.3600 ####[facility] [address] [place], [address] MCV (RBC) [Entitic vol] 95.0 fL Normal 81-99 [facility] Comment on above: Performed By: #### L 100.0500, L500.3600 ####[facility] [address] [place], [address] Platelet mean volume (Bld) [Entitic vol] 10.8 fL Normal 6.2-12.0 [facility] Comment on above: Performed By: #### L 100.0500, L500.3600 ####[facility] [address] [place], [address] Platelets (Bld) [#/Vol] 164 10*3/uL Normal 150-450 [facility] Comment on above: Performed By: #### L 100.0500, L500.3600 ####[facility] [address] [place], [address] RBC (Bld) [#/Vol] 2.39 10*6/uL Low 4.2-5.4 [facility] Comment on above: Performed By: #### L 100.0500, L500.3600 ####[facility] [address] [place], [address] RDW SD 52.6 fl High 35.1-43.9 [facility] Comment on above: Performed By: #### L 100.0500, L500.3600 ####[facility] [address] [place], [address] WBC (Bld) [#/Vol] 8.3 10*3/uL Normal 4.4-11.0 [facility] Comment on above: Performed By: #### L 100.0500, L500.3600 ####[facility] [address] [place], [address] COMPREHENSIVE METABOLIC PANE [place] 07-26-2024 Albumin [Mass/Vol] 2.9 g/dL Low 3.5-5.0 [facility] Comment on above: Performed By: #### L AB17, RRR178, TBW974, [id number], XQT563 ####Manufacturing Helper: MARY SOTELO ([phone])[facility] ([facility])[address] [place] [address] ALP [Catalytic activity/Vol] 68 U/L Normal 38-126 [facility] Comment on above: Performed By: #### L AB17, EJD594, SBL195, [id number], IJU120 ####Manufacturing Helper: MARY SOTELO ([phone])[facility] ([facility])[address] [place] [address] ALT [Catalytic activity/Vol] 21 U/L Normal 0-34 [facility] Comment on above: Performed By: #### L AB17, HNS581, ACF079, [id number], XYE712 ####Manufacturing Helper: MARY SOTELO ([phone])[facility])[address] [place] [address] Anion gap [Moles/Vol] 10 mmol/L Normal 3-13 [facility] Comment on above: Performed By: #### L AB17, LHA237, ECL038, [id number], ODW502 ####Manufacturing Helper: MARY SOTELO ([phone])[facility])[address] [place] [address] AST [Catalytic activity/Vol] 40 U/L Normal 15-46 [facility] Comment on above: Performed By: #### L AB17, NSA822, BZD557, [id number], OWF952 ####Manufacturing Helper: MARY SOTELO ([phone])[facility] [place] [address] Bilirubin [Mass/Vol] 0.5 mg/dL Normal 0.2-1.3 [facility] Comment on above: Performed By: #### L AB17, OAM619, FVS644, [id number], NTW057 ####Manufacturing Helper: MARY SOTELO ([phone])[facility] [place] [address] Calcium [Mass/Vol] 5.5 mg/dL Critically low 8.4-10.4 [facility] Comment on above: Performed By: #### L AB17, DHT797, LSM812, [id number], MBQ987 ####Manufacturing Helper: MARY SOTELO ([phone])[facility] [place] [address] [place] Chloride [Moles/Vol] 98 mmol/L Normal 98-107 [facility] Comment on above: Performed By: #### L AB17, LJK907, OHS582, [id number], HGY033 ####Manufacturing Helper: MARY SOTELO ([phone])[facility] [place] [address] [place] CO2 [Moles/Vol] 17 mmol/L Low 22-30 [facility] Comment on above: Performed By: #### L AB17, IXV989, BKL662, [id number], TEI850 ####Manufacturing Helper: MARY SOTELO ([phone])[facility] [place] [address] [place] Creatinine [Mass/Vol] 4.56 mg/dL High 0.52-1.04 [facility] Comment on above: Performed By: #### L AB17, LAG653, VGB183, [id number], IEL824 ####Manufacturing Helper: MARY SOTELO ([phone])[facility])[address] [place] [address] GLOMERULAR FILTRATION RATE ML/MIN/1.73 SQ M.PREDICTED 10.2 mL/min/1.73m*2 Low >60.0 [facility] Comment on above: Result Comment: Calc ulation based on the Chronic Kidney Disease Epidemiology Collaboration (CKD-EPI) equation refit without adjustment for race Performed By: #### L AB17, WLS698, MIY625, [id number], BDK161 ####Manufacturing Helper: MARY SOTELO ([phone])[facility])[address] [place] [address] Glucose [Mass/Vol] 252 mg/dL High 70-100 [facility] Comment on above: Performed By: #### L AB17, YVO448, TMJ879, [id number], QWZ641 ####Manufacturing Helper: MARY SOTELO ([phone])[facility])[address] [place] [address] Potassium [Moles/Vol] 5.5 mmol/L High 3.5-5.1 [facility] Comment on above: Performed By: #### L AB17, LWM006, VUJ713, [id number], OMJ141 ####Manufacturing Helper: MARY SOTELO ([phone])[address] Protein [Mass/Vol] 5.5 g/dL Low 6.3-8.2 [facility] Comment on above: Performed By: #### L AB17, DDV100, FZQ749, [id number], VKU304 ####Manufacturing Helper: MARY SOTELO ([phone])[facility])[address] [place] [address] [place] Sodium [Moles/Vol] 125 mmol/L Low 135-145 [facility] Comment on above: Performed By: #### L AB17, ESY317, BCM787, [id number], GXU529 ####Manufacturing Helper: MARY SOTELO ([phone])[facility] ([facility])[address] [place] [address] [place] Urea nitrogen [Mass/Vol] 76 mg/dL High 7-17 [facility] Comment on above: Performed By: #### L AB17, ZZP703, UNH182, [id number], XAW782 ####Manufacturing Helper: MARY SOTELO ([phone])[facility] ([facility])[address] [place] [address] CPK Total, Creatine Kinaseon 07-26-2024 CPK TOTAL 1209 U/L High 26-192 [facility] Comment on above: Order Comment: Comme nts: DC when propofol is d/c'dDC when propofol is d/c'd Performed By: #### L 501.3620, L501.5000 ####[facility] [address] [place], [place], [address] CREATININE, URINE, RANDOMon 07-26-2024 CREATININE, URINE 96.9 mg/dL Normal No [facility] Comment on above: Performed By: #### L AB444, YSB764, LUD608 ####Manufacturing Helper: MARY SOTELO ([phone])[facility] ([facility])[address] [place] [address] CT CERVICAL SPINE WO IV CONT RASTon 07-26-2024 CT CERVICAL SPINE WO IV CONTRAST Normal [facility] CT HEAD WO IV CONTRASTon CT HEAD WO IV CONTRAST Normal [facility] CXR for Line Placementon CXR for Line Placement Normal [facility] Chest 1 View (Portable)on Chest 1 View (Portable) Normal [facility] Consulton 07-26-2024 Consult Normal [facility] Consultation - Intensiviston 07-26-2024 Consultation - Rubber Tester Normal [facility] HEMOGLOBIN A1Con 07-26-2024 Glucose [Mass/Vol] 131 mg/dL Normal [facility] Comment on above: Order Comment: If no t done within the last 3 mos Performed By: #### L AB90 ####Manufacturing Helper: MARY SOTELO ([phone])[facility])[address] [place] [address] HbA1c (Bld) [Mass fraction] 6.2 % High <5.7 [facility] Comment on above: Order Comment: If no t done within the last 3 mos Result Comment: Norm al less than 5.7%Prediabetes 5.7% to 6.4%Diabetes 6.5% or higher--HgbA1C levels may not be accurate in patients who have renal disease, received recent blood transfusions, are anemic, or who have dyshemoglobinemia. Performed By: #### L AB90 ####Manufacturing Helper: MARY SOTELO ([phone])[facility])[address] [place] [address] LACTIC ACID WITH REFLEXon Lactate [Moles/Vol] 0.9 mmol/L Normal 0.7-2.0 [facility] Comment on above: Performed By: #### L [id number] ####Manufacturing Helper: MARY SOTELO ([phone])[facility] ([facility])[address] [place] [address] LEGIONELLA AND STREPTOCOCCUS URINE ANTIGENon 07-26-2024 LEGIONELLA AND STREPTOCOCCUS URINE ANTIGEN Normal [facility] Comment on above: Performed By: #### L [id number] ####Manufacturing Helper: MARY SOTELO ([phone])[facility])[address] [place] [address] MAGNESIUMon 07-26-2024 Magnesium [Mass/Vol] 1.5 mg/dL Low 1.6-2.3 [facility] Comment on above: Performed By: #### L AB17, FPH614, ADP937, [id number], RRX413 ####Manufacturing Helper: MARY SOTELO ([phone])[facility])[address] [place] [address] MR/CON.PCM.NEon 07-26-2024 MR/CON.PCM.NE Normal [facility] OSMOLALITY, SERUMon 07-26-20 24 OSMOLALITY, SERUM 309 mOsm/kg High 280-300 [facility] Comment on above: Performed By: #### L AB107 ####Manufacturing Helper: MARY SOTELO ([phone])[facility] ([facility])[address] [place] [address] OSMOLALITY, URINEon 07-26-20 24 OSMOLALITY, URINE 316 mOsm/kg Normal 300-1000 [facility] Comment on above: Performed By: #### L AB444, KEP815, ZTB888 ####Manufacturing Helper: MARY SOTELO ([phone])[facility] ([facility])[address] [place] [address] [place] PHOSPHORUSon 07-26-2024 Phosphate [Mass/Vol] 8.5 mg/dL High 2.5-4.5 [facility] Comment on above: Performed By: #### L AB17, KCU206, UFA855, [id number], PST679 ####Manufacturing Helper: MARY SOTELO ([phone])[facility] ([facility])[address] [place] [address] PROCALCITONIN TESTon 024 PROCALCITONIN 2.48 ng/mL High 0.00-0.09 [facility] Comment on above: Result Comment: BINA Olivarez COMMENTS:PCT <0.50 = Low risk of severe sepsis and/or septic shock.PCT >2.00 = High risk of severe sepsis and/or septic shock. Performed By: #### L [id number] ####Manufacturing Helper: MARY SOTELO ([phone])[facility] ([facility])[address] [place] [address] Partial Thromboplast Timeon 07-26-2024 aPTT Coag (Bld) [Time] 33.7 s Normal 24.1-36.2 [facility] Comment on above: Performed By: #### L 300.4310, L300.3900 ####[facility] [address] [place], [address] Procedure Reporton Procedure Report Normal [facility] Procedure Report Normal [facility] Prothrombin Time w/INRon INR Coag (PPP) [Relative time] 1.3 {INR} Normal [facility] Comment on above: Performed By: #### L 300.4310, L300.3900 ####[facility] [address] [place], [address] PT Coag (PPP) [Time] 15.7 s High 11.7-14.9 [facility] Comment on above: Performed By: #### L 300.4310, L300.3900 ####[facility] [address] [place], [address] Renal Profileon 07-26-2024 Albumin [Mass/Vol] 2.4 g/dL Low 3.2-5.0 [facility] Comment on above: Performed By: #### L 100.0500, L500.3600 ####[facility] [address] [place], [address] BUN/CRE 15.4 RATIO Normal 10-20 [facility] Comment on above: Performed By: #### L 100.0500, L500.3600 ####[facility] [address] [place], [address] CA,Total 5.5 mg/dL Invalid Interpretation Code 8.5-10.1 [facility] Comment on above: Result Comment: Crit ical Result(s) Called at: 03:18:33 07/26/2024 by:Ana Rosa Andrew to [facility]. Results read back by same. Performed By: #### L 100.0500, L500.3600 ####[facility] [address] [place], [address] Chloride [Moles/Vol] 100 mmol/L Normal 98-107 [facility] Comment on above: Performed By: #### L 100.0500, L500.3600 ####[facility] [address] [place], [address] CO2 [Moles/Vol] 20.0 mmol/L Low 21.0-32.0 [facility] Comment on above: Performed By: #### L 100.0500, L500.3600 ####[facility] [address] [place], [address] Creatinine [Mass/Vol] 3.84 mg/dL High 0.55-1.02 [facility] Comment on above: Result Comment: The validity of the calculated GFR GFRAA in patients over70 years has not been determined. Clinical correlation isessential. Performed By: #### L 100.0500, L500.3600 ####[facility] [address] [place], [address] ECRCL 11.26 ml/min Normal [facility] Comment on above: Performed By: #### L 100.0500, L500.3600 ####[facility] [address] [place], [address] EST GFR - AA 15 mL/min Low >60 [facility] Comment on above: Result Comment: Afri can Cameroonian GFR Calc Performed By: #### L 100.0500, L500.3600 ####[facility] [address] [place], [address] GFR/1.73 sq M.predicted among non-blacks MDRD (S/P/Bld) [Vol rate/Area] 13 mL/min/{1.73_m2} Low >60 [facility] Comment on above: Result Comment: Non- GFR Calc Performed By: #### L 100.0500, L500.3600 ####[facility] [address] [place], [address] Glucose [Mass/Vol] 167 mg/dL High 74-106 [facility] Comment on above: Result Comment: Fast ing Glucose result greater than or equal to 126 mg/dLsuggests DIABETES MELLITUS per A.D.A. criteria. Performed By: #### L 100.0500, L500.3600 ####[facility] [address] [place], [address] Phosphate [Mass/Vol] 7.0 mg/dL High 2.5-4.9 [facility] Comment on above: Performed By: #### L 100.0500, L500.3600 ####[facility] [address] [place], [address] Potassium [Moles/Vol] 5.6 mmol/L High 3.5-5.1 [facility] Comment on above: Performed By: #### L 100.0500, L500.3600 ####[facility] [address] [place], [address] Sodium [Moles/Vol] 131 mmol/L Low 136-145 [facility] Comment on above: Performed By: #### L 100.0500, L500.3600 ####[facility] [address] [place], [address] Urea nitrogen [Mass/Vol] 59 mg/dL High 7-18 [facility] Comment on above: Performed By: #### L 100.0500, L500.3600 ####[facility] [address] [place], [address] SODIUM, URINE, RANDOMon - Sodium (U) [Moles/Vol] 31 mmol/L Normal 30-90 [facility] Comment on above: Performed By: #### L AB444, DJZ512, GRL021 ####Manufacturing Helper: MARY SOTELO ([phone])[facility] ([facility] THYROID STIMULATING HORMONEo n 07-26-2024 THYROID STIMULATING HORMONE 3.472 uIU/mL Normal 0.465-4.680 [facility] Comment on above: Performed By: #### L AB17, KQK110, OLR996, [id number], [id number] ####Manufacturing Helper: MARY SOTELO ([id number])[facility] ([facility])[address] [place] [address] [place] TROPONIN Ion 07-26-2024 Troponin I.cardiac [Mass/Vol] 0.014 ng/mL Normal <0.034 [facility] Comment on above: Result Comment: BINA Olivarez COMMENTS:Patients with high levels of Biotin oral intake (ie >5 mg/day) may have falsely decreased Troponin levels. Performed By: #### L AB747 ####Manufacturing Helper: MARY SOTELO ([id number])[facility] ([facility])[address] [place] [address] [place] TROPONIN, WITH SERIAL REFLEX on 07-26-2024 Troponin I.cardiac [Mass/Vol] 0.013 ng/mL Normal <0.034 [facility] Comment on above: Result Comment: BINA Olivarez COMMENTS:Patients with high levels of Biotin oral intake (ie >5 mg/day) may have falsely decreased Troponin levels. Performed By: #### L AB17, GRX911, NEH486, [id number], GVA017 ####Manufacturing Helper: MARY SOTELO ([id number])[facility] ([facility] [place] [address] Triglycerideson 07-26-2024 Triglyceride [Mass/Vol] 103 mg/dL Normal [facility] Comment on above: Order Comment: Comme nts: DC when propofol is d/c'dDC when propofol is d/c'd Result Comment: The drugs N-Acetylcysteine and Metamizole may falselydepress this assay.Serum Triglycerides Reference Interval Normal <150 mg/dL Borderline high 150 - 199 mg/dL High 200 - 499 mg/dL Very High > or = 500 mg/dL Performed By: #### L 501.3620, L501.5000 ####[facility] [address] [place], [place], [id number] XR ABDOMEN 1 VIEWon 07-26-20 24 XR ABDOMEN 1 VIEW [facility] XR CHEST 1 VIEWon 07-26-2024 XR CHEST 1 VIEW Normal [facility] Basic Metabolic Profile (BMP )on 07-25-2024 BUN/CRE 13.8 RATIO Normal 10-20 [facility] Comment on above: Performed By: #### L 500.2500 ####[facility] [address] [place], [address] CA,Total 5.7 mg/dL Invalid Interpretation Code 8.5-10.1 [facility] Comment on above: Result Comment: Crit ical Result(s) Called at: 07:31:06 07/25/2024 by: Hannah Velazquez RN (U). Results read back by same. Performed By: #### L 500.2500 ####[facility] [address] [place], [address] Chloride [Moles/Vol] 97 mmol/L Low 98-107 [facility] Comment on above: Performed By: #### L 500.2500 ####[facility] [address] [place], [address] CO2 [Moles/Vol] 23.0 mmol/L Normal 21.0-32.0 [facility] Comment on above: Performed By: #### L 500.2500 ####[facility] [address] [place], [address] Creatinine [Mass/Vol] 3.77 mg/dL High 0.55-1.02 [facility] Comment on above: Result Comment: The validity of the calculated GFR GFRAA in patients over70 years has not been determined. Clinical correlation isessential. Performed By: #### L 500.2500 ####[facility] [address] [place], [address] ECRCL 11.47 ml/min Normal [facility] Comment on above: Performed By: #### L 500.2500 ####[facility] [address] [place], [address] EST GFR - AA 16 mL/min Low >60 [facility] Comment on above: Result Comment: Afri can Cameroonian GFR Calc Performed By: #### L 500.2500 ####[facility] [address] [place], [address] GAP 10 Normal 5-15 [facility] Comment on above: Performed By: #### L 500.2500 ####[facility] [address] [place], [address] GFR/1.73 sq M.predicted among non-blacks MDRD (S/P/Bld) [Vol rate/Area] 13 mL/min/{1.73_m2} Low >60 [facility] Comment on above: Result Comment: Non- GFR Calc Performed By: #### L 500.2500 ####[facility] [address] [place], [address] Glucose [Mass/Vol] 275 mg/dL High 74-106 [facility] Comment on above: Result Comment: Gluc ose result greater than or equal to 200 mg/dLsuggests DIABETES MELLITUS per A.D.A. criteria. Performed By: #### L 500.2500 ####[facility] [address] [place], [address] Potassium [Moles/Vol] 5.1 mmol/L Normal 3.5-5.1 [facility] Comment on above: Performed By: #### L 500.2500 ####[facility] [address] [place], [address] Sodium [Moles/Vol] 130 mmol/L Low 136-145 [facility] Comment on above: Performed By: #### L 500.2500 ####[facility] [address] [place], [address] Urea nitrogen [Mass/Vol] 52 mg/dL High 7-18 [facility] Comment on above: Performed By: #### L 500.2500 ####[facility] [address] [place], [address] Bedside Glucoseon 07-25-2024 FINGERSTICK GLU 249 mg/dL High 74-106 [facility] Comment on above: Result Comment: SHELLY GEMENT OF PATIENT CARE PER NURSING PROTOCOL Performed By: #### L 501.080 ####[facility] [address] [place], [address] FINGERSTICK GLU 140 mg/dL High 74-106 [facility] Comment on above: Result Comment: SHELLY GEMENT OF PATIENT CARE PER NURSING PROTOCOL Performed By: #### L 501.080 ####[facility] [address] [place], [address] FINGERSTICK GLU 270 mg/dL High 74-106 [facility] Comment on above: Result Comment: SHELLY GEMENT OF PATIENT CARE PER NURSING PROTOCOL Performed By: #### L 501.080 ####[facility] [address] [place], [address] CBC W/Diff, Automatedon 07-05 Absolute Lymph 1.26 X10 3/uL Normal 0.83-4.51 [facility] Comment on above: Performed By: #### L 100.0100 ####[facility] [address] [place], [address] Absolute Neut 7.1 X10 3/uL Normal 2.0-7.7 [facility] Comment on above: Performed By: #### L 100.0100 ####[facility] [address] [place], [address] Basophils/100 WBC (Bld) 0.2 % Normal 0-1 [facility] Comment on above: Performed By: #### L 100.0100 ####[facility] [address] [place], [address] Eosinophils/100 WBC (Bld) 0.6 % Normal 0-5 [facility] Comment on above: Performed By: #### L 100.0100 ####[facility] [address] [place], [address] Erythrocyte distribution width (RBC) [Ratio] 15.1 % High 11.6-14.6 [facility] Comment on above: Performed By: #### L 100.0100 ####[facility] [address] [place], [address] Hematocrit (Bld) [Volume fraction] 26.8 % Low 37-47 [facility] Comment on above: Performed By: #### L 100.0100 ####[facility] [address] [place], [address] Hemoglobin (Bld) [Mass/Vol] 8.0 g/dL Low 12.0-15.0 [facility] Comment on above: Performed By: #### L 100.0100 ####[facility] [address] [place], [address] IG% 0.800 Normal 0.0-0.9 [facility] Comment on above: Result Comment: IG% - Immature Granulocytes (promyelocytes, myelocytes andmetamyelocytes) > 1% indicates that a LEFT SHIFT is Present. Performed By: #### L 100.0100 ####[facility] [address] [place], [address] Lymphocytes/100 WBC (Bld) 13.5 % Low 19-41 [facility] Comment on above: Performed By: #### L 100.0100 ####[facility] [address] [place], [address] MCH (RBC) [Entitic mass] 28.5 pg Normal 27.0-32.0 [facility] Comment on above: Performed By: #### L 100.0100 ####[facility] [address] [place], [address] MCHC (RBC) [Mass/Vol] 29.9 g/dL Low 32-36 [facility] Comment on above: Performed By: #### L 100.0100 ####[facility] [address] [place], [address] MCV (RBC) [Entitic vol] 95.4 fL Normal 81-99 [facility] Comment on above: Performed By: #### L 100.0100 ####[facility] [address] [place], [address] Monocytes/100 WBC (Bld) 9.1 % Normal 0-10 [facility] Comment on above: Performed By: #### L 100.0100 ####[facility] [address] [place], [address] Neutrophils/100 WBC (Bld) 75.8 % High 47-70 [facility] Comment on above: Performed By: #### L 100.0100 ####[facility] [address] [place], [address] Nucleated RBC (Bld) [#/Vol] 0.3 10*3/uL Normal 0-5 [facility] Comment on above: Performed By: #### L 100.0100 ####[facility] [address] [place], [address] Platelet mean volume (Bld) [Entitic vol] 11.0 fL Normal 6.2-12.0 [facility] Comment on above: Performed By: #### L 100.0100 ####[facility] [address] [place], [address] Platelets (Bld) [#/Vol] 204 10*3/uL Normal 150-450 [facility] Comment on above: Performed By: #### L 100.0100 ####[facility] [address] [place], [address] RBC (Bld) [#/Vol] 2.81 10*6/uL Low 4.2-5.4 [facility] Comment on above: Performed By: #### L 100.0100 ####[facility] [address] [place], [address] RDW SD 53.3 fl High 35.1-43.9 [facility] Comment on above: Performed By: #### L 100.0100 ####[facility] [address] [place], [address] WBC (Bld) [#/Vol] 9.3 10*3/uL Normal 4.4-11.0 [facility] Comment on above: Performed By: #### L 100.0100 ####[facility] [address] [place], [address] HH, Hemoglobin AND Hematocri ton 07-25-2024 Hematocrit (Bld) [Volume fraction] 28.5 % Low 37-47 [facility] Comment on above: Performed By: #### L 100.0600 ####[facility] [address] [place], [address] Hemoglobin (Bld) [Mass/Vol] 8.7 g/dL Low 12.0-15.0 [facility] Comment on above: Performed By: #### L 100.0600 ####[facility] [address] [place], [address] 12 Lead EKGon 07-24-2024 12 Lead EKG Normal [facility] BNP,B-Type NATRIURETIC PEPTI Rinku 07-24-2024 Natriuretic peptide B (Bld) [Mass/Vol] 2478.5 pg/mL High 0-100 [facility] Comment on above: Performed By: #### L 509.7000, L101.9900, L501.5200, L503.6550, L501.6710, L503.6030, L501.2300, L501.3620, L504.2610, L503.6620, L300.8000 ####[facility] [address] [place], [address] Basic Metabolic Profile (BMP )on 07-24-2024 BUN Normal 7-18 [facility] Comment on above: Result Comment: Canc elled via OM: Order edited - Discontinuing original order Performed By: #### L 500.2500 ####[facility] [address] [place], [address] BUN/CRE Normal 10-20 [facility] Comment on above: Result Comment: Canc elled via OM: Order edited - Discontinuing original order Performed By: #### L 500.2500 ####[facility] [address] [place], [address] CA,Total Normal 8.5-10.1 [facility] Comment on above: Result Comment: Canc elled via OM: Order edited - Discontinuing original order Performed By: #### L 500.2500 ####[facility] [address] [place], [address] CL Normal 98-107 [facility] Comment on above: Result Comment: Canc elled via OM: Order edited - Discontinuing original order Performed By: #### L 500.2500 ####[facility] [address] [place], [address] CO2 Normal 21.0-32.0 [facility] Comment on above: Result Comment: Canc elled via OM: Order edited - Discontinuing original order Performed By: #### L 500.2500 ####[facility] [address] [place], [address] CREAT,SERUM Normal 0.55-1.02 [facility] Comment on above: Result Comment: Canc elled via OM: Order edited - Discontinuing original order Performed By: #### L 500.2500 ####[facility] [address] [place], [address] EST GFR Normal >60 [facility] Comment on above: Result Comment: Canc elled via OM: Order edited - Discontinuing original order Performed By: #### L 500.2500 ####[facility] [address] [place], [address] EST GFR - AA Normal >60 [facility] Comment on above: Result Comment: Canc elled via OM: Order edited - Discontinuing original order Performed By: #### L 500.2500 ####[facility] [address] [place], [address] GAP Normal 5-15 [facility] Comment on above: Result Comment: Canc elled via OM: Order edited - Discontinuing original order Performed By: #### L 500.2500 ####[facility] [address] [place], [address] GLU Normal 74-106 [facility] Comment on above: Result Comment: Canc elled via OM: Order edited - Discontinuing original order Performed By: #### L 500.2500 ####[facility] [address] [place], [address] Potassium Normal 3.5-5.1 [facility] Comment on above: Result Comment: Canc elled via OM: Order edited - Discontinuing original order Performed By: #### L 500.2500 ####[facility] [address] [place], [address] Basic Metabolic Profile (BMP) Normal 136-145 [facility] Comment on above: Result Comment: Canc elled via OM: Order edited - Discontinuing original order Performed By: #### L 500.2500 ####[facility] [address] [place], [address] BUN/CRE 14.2 RATIO Normal 10-20 [facility] Comment on above: Performed By: #### L 500.2500 ####[facility] [address] [place], [address] CA,Total 5.5 mg/dL Invalid Interpretation Code 8.5-10.1 [facility] Comment on above: Performed By: #### L 500.2500 ####[facility] [address] [place], [address] Chloride [Moles/Vol] 103 mmol/L Normal 98-107 [facility] Comment on above: Performed By: #### L 500.2500 ####[facility] [address] [place], [address] CO2 [Moles/Vol] 24.0 mmol/L Normal 21.0-32.0 [facility] Comment on above: Performed By: #### L 500.2500 ####[facility] [address] [place], [address] Creatinine [Mass/Vol] 3.65 mg/dL High 0.55-1.02 [facility] Comment on above: Result Comment: The validity of the calculated GFR GFRAA in patients over70 years has not been determined. Clinical correlation isessential. Performed By: #### L 500.2500 ####[facility] [address] [place], [address] ECRCL 11.92 ml/min Normal [facility] Comment on above: Performed By: #### L 500.2500 ####[facility] [address] [place], [address] EST GFR - AA 16 mL/min Low >60 [facility] Comment on above: Result Comment: Afri can Cameroonian GFR Calc Performed By: #### L 500.2500 ####[facility] [address] [place], [address] GAP 8 Normal 5-15 [facility] Comment on above: Performed By: #### L 500.2500 ####[facility] [address] [place], [address] GFR/1.73 sq M.predicted among non-blacks MDRD (S/P/Bld) [Vol rate/Area] 13 mL/min/{1.73_m2} Low >60 [facility] Comment on above: Result Comment: Non- GFR Calc Performed By: #### L 500.2500 ####[facility] [address] [place], [address] Glucose [Mass/Vol] 215 mg/dL High 74-106 [facility] Comment on above: Result Comment: Gluc ose result greater than or equal to 200 mg/dLsuggests DIABETES MELLITUS per A.D.A. criteria. Performed By: #### L 500.2500 ####[facility] [address] [place], [address] Potassium [Moles/Vol] 5.2 mmol/L High 3.5-5.1 [facility] Comment on above: Performed By: #### L 500.2500 ####[facility] [address] [place], [address] Sodium [Moles/Vol] 135 mmol/L Low 136-145 [facility] Comment on above: Performed By: #### L 500.2500 ####[facility] [address] [place], [address] Urea nitrogen [Mass/Vol] 52 mg/dL High 7-18 [facility] Comment on above: Performed By: #### L 500.2500 ####[facility] [address] [place], [address] Bedside Glucoseon 07-24-2024 FINGERSTICK GLU 239 mg/dL High 74-106 [facility] Comment on above: Result Comment: SHELLY GEMENT OF PATIENT CARE PER NURSING PROTOCOL Performed By: #### L 501.080 ####[facility] [address] [place], [address] FINGERSTICK GLU 281 mg/dL High 74-106 [facility] Comment on above: Result Comment: SHELLY GEMENT OF PATIENT CARE PER NURSING PROTOCOL Performed By: #### L 501.080 ####[facility] [address] [place], [address] FINGERSTICK GLU 287 mg/dL High 74-106 [facility] Comment on above: Result Comment: SHELLY GEMENT OF PATIENT CARE PER NURSING PROTOCOL Performed By: #### L 501.080 ####[facility] [address] [place], [address] FINGERSTICK GLU 193 mg/dL High 74-106 [facility] Comment on above: Result Comment: SHELLY GEMENT OF PATIENT CARE PER NURSING PROTOCOL Performed By: #### L 501.080 ####[facility] [address] [place], [address] FINGERSTICK GLU 337 mg/dL High -[address] [place] [address] Comment on above: Result Comment: SHELLY GEMENT OF PATIENT CARE PER NURSING PROTOCOL Performed By: #### L 501.080 ####[facility] [address] [place], [address] FINGERSTICK GLU 177 mg/dL High -106 [facility] Comment on above: Result Comment: SHELLY GEMENT OF PATIENT CARE PER NURSING PROTOCOL Performed By: #### L 501.080 ####[facility] [address] [place], [address] FINGERSTICK GLU 225 mg/dL High [address] [place] [address] Comment on above: Result Comment: SHELLY GEMENT OF PATIENT CARE PER NURSING PROTOCOL Performed By: #### L 501.080 ####[facility] [address] [place], [address] CBC W/Diff, Automatedon 07-05 Absolute Lymph 0.47 X10 3/uL Low 0.83-4.51 [facility] Comment on above: Performed By: #### L 506.1000, L100.0100, L500.4050, L509.1000, L3300.0960, L501.9985 ####[facility] [address] [place], [address] Absolute Neut 6.3 X10 3/uL Normal 2.0-7.7 [facility] Comment on above: Performed By: #### L 506.1000, L100.0100, L500.4050, L509.1000, L3300.0960, L501.9985 ####[facility] [address] [place], [address] Basophils/100 WBC (Bld) 0.7 % Normal 0-1 [facility] Comment on above: Performed By: #### L 506.1000, L100.0100, L500.4050, L509.1000, L3300.0960, L501.9985 ####[facility] [address] [place], [address] Eosinophils/100 WBC (Bld) 1.6 % Normal 0-5 [facility] Comment on above: Performed By: #### L 506.1000, L100.0100, L500.4050, L509.1000, L3300.0960, L501.9985 ####[facility] [address] [place], [address] Erythrocyte distribution width (RBC) [Ratio] 14.9 % High 11.6-14.6 [facility] Comment on above: Performed By: #### L 506.1000, L100.0100, L500.4050, L509.1000, L3300.0960, L501.9985 ####[facility] [address] [place], [address] Hematocrit (Bld) [Volume fraction] 29.4 % Low 37-47 [facility] Comment on above: Performed By: #### L 506.1000, L100.0100, L500.4050, L509.1000, L3300.0960, L501.9985 ####[facility] [address] [place], [address] Hemoglobin (Bld) [Mass/Vol] 8.6 g/dL Low 12.0-15.0 [facility] Comment on above: Performed By: #### L 506.1000, L100.0100, L500.4050, L509.1000, L3300.0960, L501.9985 ####[facility] [address] [place], [address] IG% 2.100 High 0.0-0.9 [facility] Comment on above: Result Comment: IG% - Immature Granulocytes (promyelocytes, myelocytes andmetamyelocytes) > 1% indicates that a LEFT SHIFT is Present. Performed By: #### L 506.1000, L100.0100, L500.4050, L509.1000, L3300.0960, L501.9985 ####[facility] [address] [place], [address] Lymphocytes/100 WBC (Bld) 6.5 % Low 19-41 [facility] Comment on above: Performed By: #### L 506.1000, L100.0100, L500.4050, L509.1000, L3300.0960, L501.9985 ####[facility] [address] [place], [address] MCH (RBC) [Entitic mass] 28.2 pg Normal 27.0-32.0 [facility] Comment on above: Performed By: #### L 506.1000, L100.0100, L500.4050, L509.1000, L3300.0960, L501.9985 ####[facility] [address] [place], [address] MCHC (RBC) [Mass/Vol] 29.3 g/dL Low 32-36 [facility] Comment on above: Performed By: #### L 506.1000, L100.0100, L500.4050, L509.1000, L3300.0960, L501.9985 ####[facility] [address] [place], [address] MCV (RBC) [Entitic vol] 96.4 fL Normal 81-99 [facility] Comment on above: Performed By: #### L 506.1000, L100.0100, L500.4050, L509.1000, L3300.0960, L501.9985 ####[facility] [address] [place], [address] Monocytes/100 WBC (Bld) 2.2 % Normal 0-10 [facility] Comment on above: Performed By: #### L 506.1000, L100.0100, L500.4050, L509.1000, L3300.0960, L501.9985 ####[facility] [address] [place], [address] Neutrophils/100 WBC (Bld) 86.9 % High 47-70 [facility] Comment on above: Performed By: #### L 506.1000, L100.0100, L500.4050, L509.1000, L3300.0960, L501.9985 ####[facility] [address] [place], [address] Nucleated RBC (Bld) [#/Vol] 0.3 10*3/uL Normal 0-5 [facility] Comment on above: Performed By: #### L 506.1000, L100.0100, L500.4050, L509.1000, L3300.0960, L501.9985 ####[facility] [address] [place], [address] Platelet mean volume (Bld) [Entitic vol] 10.3 fL Normal 6.2-12.0 [facility] Comment on above: Performed By: #### L 506.1000, L100.0100, L500.4050, L509.1000, L3300.0960, L501.9985 ####[facility] [address] [place], [address] Platelets (Bld) [#/Vol] 196 10*3/uL Normal 150-450 [facility] Comment on above: Performed By: #### L 506.1000, L100.0100, L500.4050, L509.1000, L3300.0960, L501.9985 ####[facility] [address] [place], [address] RBC (Bld) [#/Vol] 3.05 10*6/uL Low 4.2-5.4 [facility] Comment on above: Performed By: #### L 506.1000, L100.0100, L500.4050, L509.1000, L3300.0960, L501.9985 ####[facility] [address] [place], [address] RDW SD 52.3 fl High 35.1-43.9 [facility] Comment on above: Performed By: #### L 506.1000, L100.0100, L500.4050, L509.1000, L3300.0960, L501.9985 ####[facility] [address] [place], [address] WBC (Bld) [#/Vol] 7.3 10*3/uL Normal 4.4-11.0 [facility] Comment on above: Performed By: #### L 506.1000, L100.0100, L500.4050, L509.1000, L3300.0960, L501.9985 ####[facility] [address] [place], [address] CPK Total, Creatine Kinaseon 07-24-2024 CPK TOTAL 604 U/L High 26-192 [facility] Comment on above: Order Comment: Comme nts: May add to ED labsComments: add to ED labsComments: may add to ED labsmay add to ED labs Performed By: #### L 509.7000, L101.9900, L501.5200, L503.6550, L501.6710, L503.6030, L501.2300, L501.3620, L504.2610, L503.6620, L300.8000 ####[facility] [address] [place], [address] CRPon 07-24-2024 C-REACTIVE PROT 62.00 mg/L High 0.0-3.0 [facility] Comment on above: Order Comment: Comme [...] L501.6710, L503.6030, L501.2300, L501.3620, L504.2610, L503.6620, L300.8000 ####[facility] [address] [place], [address] Calcium, Urine (Random)on Calcium Ur Paradis < 5.0 Normal Not Estab. [facility] Comment on above: Performed By: #### L 501.2240 ####[facility] [address] [place], [address] Comprehensive Metabolic Prof ilon 07-24-2024 Albumin [Mass/Vol] 2.9 g/dL Low 3.2-5.0 [facility] Comment on above: Performed By: #### L 506.1000, L100.0100, L500.4050, L509.1000, L3300.0960, L501.9985 ####[facility] [address] [place], [address] Albumin/Globulin [Mass ratio] 0.7 {ratio} Low 0.9-2.4 [facility] Comment on above: Performed By: #### L 506.1000, L100.0100, L500.4050, L509.1000, L3300.0960, L501.9985 ####[facility] [address] [place], [address] ALK P 78 U/L Normal 45-117 [facility] Comment on above: Performed By: #### L 506.1000, L100.0100, L500.4050, L509.1000, L3300.0960, L501.9985 ####[facility] [address] [place], [address] ALT [Catalytic activity/Vol] 17 U/L Normal 13-56 [facility] Comment on above: Performed By: #### L 506.1000, L100.0100, L500.4050, L509.1000, L3300.0960, L501.9985 ####[facility] [address] [place], [address] AST [Catalytic activity/Vol] 18 U/L Normal 15-37 [facility] Comment on above: Performed By: #### L 506.1000, L100.0100, L500.4050, L509.1000, L3300.0960, L501.9985 ####[facility] [address] [place], [address] Bilirubin [Mass/Vol] 0.40 mg/dL Normal 0.20-1.00 [facility] Comment on above: Result Comment: For patients on eltrombopag therapy, use of Dimension [place] TBIL is not recommended. Performed By: #### L 506.1000, L100.0100, L500.4050, L509.1000, L3300.0960, L501.9985 ####[facility] [address] [place], [address] BUN/CRE 12.2 RATIO Normal 10-20 [facility] Comment on above: Performed By: #### L 506.1000, L100.0100, L500.4050, L509.1000, L3300.0960, L501.9985 ####[facility] [address] [place], [address] CA,Total 5.7 mg/dL Invalid Interpretation Code 8.5-10.1 [facility] Comment on above: Result Comment: Crit ical Result(s) Called at: 11:08:06 07/24/2024 by: Hannah Deleon RN ([facility]). Results read back by same. Performed By: #### L 506.1000, L100.0100, L500.4050, L509.1000, L3300.0960, L501.9985 ####[facility] [address] [place], [address] Chloride [Moles/Vol] 103 mmol/L Normal 98-107 [facility] Comment on above: Performed By: #### L 506.1000, L100.0100, L500.4050, L509.1000, L3300.0960, L501.9985 ####[facility] [address] [place], [address] CO2 [Moles/Vol] 23.0 mmol/L Normal 21.0-32.0 [facility] Comment on above: Performed By: #### L 506.1000, L100.0100, L500.4050, L509.1000, L3300.0960, L501.9985 ####[facility] [address] [place], [address] Creatinine [Mass/Vol] 3.45 mg/dL High 0.55-1.02 [facility] Comment on above: Result Comment: The validity of the calculated GFR GFRAA in patients over70 years has not been determined. Clinical correlation isessential. Performed By: #### L 506.1000, L100.0100, L500.4050, L509.1000, L3300.0960, L501.9985 ####[facility] [address] [place], [address] ECRCL 12.61 ml/min Normal [facility] Comment on above: Performed By: #### L 506.1000, L100.0100, L500.4050, L509.1000, L3300.0960, L501.9985 ####[facility] [address] [place], [address] EST GFR - AA 17 mL/min Low >60 [facility] Comment on above: Result Comment: Afri can Cameroonian GFR Calc Performed By: #### L 506.1000, L100.0100, L500.4050, L509.1000, L3300.0960, L501.9985 ####[facility] [address] [place], [address] GAP 8 Normal 5-15 [facility] Comment on above: Performed By: #### L 506.1000, L100.0100, L500.4050, L509.1000, L3300.0960, L501.9985 ####[facility] [address] [place], [address] GFR/1.73 sq M.predicted among non-blacks MDRD (S/P/Bld) [Vol rate/Area] 14 mL/min/{1.73_m2} Low >60 [facility] Comment on above: Result Comment: Non- GFR Calc Performed By: #### L 506.1000, L100.0100, L500.4050, L509.1000, L3300.0960, L501.9985 ####[facility] [address] [place], [address] Globulin (S) [Mass/Vol] 3.9 g/dL Normal 2.2-4.2 [facility] Comment on above: Performed By: #### L 506.1000, L100.0100, L500.4050, L509.1000, L3300.0960, L501.9985 ####[facility] [address] [place], [address] Glucose [Mass/Vol] 220 mg/dL High 74-106 [facility] Comment on above: Result Comment: Gluc ose result greater than or equal to 200 mg/dLsuggests DIABETES MELLITUS per A.D.A. criteria. Performed By: #### L 506.1000, L100.0100, L500.4050, L509.1000, L3300.0960, L501.9985 ####[facility] [address] [place], [address] Potassium [Moles/Vol] 6.2 mmol/L Invalid Interpretation Code 3.5-5.1 [facility] Comment on above: Result Comment: Crit ical Result(s) Called at: 11:08:06 07/24/2024 by: Hannah Deleon RN ([facility]). Results read back by same. Performed By: #### L 506.1000, L100.0100, L500.4050, L509.1000, L3300.0960, L501.9985 ####[facility] [address] [place], [address] Sodium [Moles/Vol] 134 mmol/L Low 136-145 [facility] Comment on above: Performed By: #### L 506.1000, L100.0100, L500.4050, L509.1000, L3300.0960, L501.9985 ####[facility] [address] [place], [address] T PROT 6.8 g/dL Normal 6.4-8.2 [facility] Comment on above: Performed By: #### L 506.1000, L100.0100, L500.4050, L509.1000, L3300.0960, L501.9985 ####[facility] [address] [place], [address] Urea nitrogen [Mass/Vol] 42 mg/dL High 7-18 [facility] Comment on above: Performed By: #### L 506.1000, L100.0100, L500.4050, L509.1000, L3300.0960, L501.9985 ####[facility] [address] [place], [address] Consultation - Nephrologyon 07-24-2024 Consultation - Nephrology Normal [facility] Creatinine, Urine (random)on 07-24-2024 UR CREAT 78.60 mg/dL Normal NO RANGE EST. [facility] Comment on above: Performed By: #### L 501.5500, L501.1200 ####[facility] [address] [place], [place], [address] D-Dimer Quantitative (DVT/PE )on 07-24-2024 D-DIMER QUANT 2.82 FEU/ug/m Invalid Interpretation Code 0.27-0.49 [facility] Comment on above: Result Comment: D-Di vera ELEVATED (>0.49): Additional studies and clinicalassessments are indicated to conclude diagnosis of:Deep Vein Thrombosis (DVT) or Pulmonary Embolism (PE)CRITICAL VALUE CALLED TO LZDMIPYMD32/21/24 0038 Ana Rosa Andrew.RESULTS READ BACK BY SAME. Performed By: #### L 509.7000, L101.9900, L501.5200, L503.6550, L501.6710, L503.6030, L501.2300, L501.3620, L504.2610, L503.6620, L300.8000 ####[facility] [address] [place], [address] Erythrocyte Sed Rateon 07-24 SED RATE 21 mm/hr Normal 0-30 [facility] Comment on above: Performed By: #### L 509.7000, L101.9900, L501.5200, L503.6550, L501.6710, L503.6030, L501.2300, L501.3620, L504.2610, L503.6620, L300.8000 ####[facility] [address] [place], [place], [id number] Ferritinon 07-24-2024 Ferritin [Mass/Vol] 106 ng/mL Normal 8-252 [facility] Comment on above: Order Comment: Comme nts: May add to ED labsComments: add to ED labsComments: may add to ED labsmay add to ED labs Performed By: #### L 509.7000, L101.9900, L501.5200, L503.6550, L501.6710, L503.6030, L501.2300, L501.3620, L504.2610, L503.6620, L300.8000 ####[facility] [address] [place], [place], [id number] Hemoglobin A1con 07-24-2024 HbA1c (Bld) [Mass fraction] 5.7 % High 3.8-5.6 [facility] Comment on above: Result Comment: Norm al < 5.7 % Prediabetic 5.7 - 6.4 % Diabetic >or= 6.5 % Please note range changes. Performed By: #### L 506.1000, L100.0100, L500.4050, L509.1000, L3300.0960, L501.9985 ####[facility] [address] [place], [place], [id number] Iron+Iron Binding Capacityon 07-24-2024 Iron [Mass/Vol] 24 ug/dL Low 50-170 [facility] Comment on above: Order Comment: Comme nts: May add to ED labsComments: add to ED labsComments: may add to ED labsmay add to ED labs Performed By: #### L 509.7000, L101.9900, L501.5200, L503.6550, L501.6710, L503.6030, L501.2300, L501.3620, L504.2610, L503.6620, L300.8000 ####[facility] [address] [place], [address] IRON SATURATION 10.3 Low 15.0-55.0 [facility] Comment on above: Order Comment: Comme nts: May add to ED labsComments: add to ED labsComments: may add to ED labsmay add to ED labs Performed By: #### L 509.7000, L101.9900, L501.5200, L503.6550, L501.6710, L503.6030, L501.2300, L501.3620, L504.2610, L503.6620, L300.8000 ####[facility] [address] [place], [address] TIBC 233 ug/dL Low 250-450 [facility] Comment on above: Order Comment: Comme nts: May add to ED labsComments: add to ED labsComments: may add to ED labsmay add to ED labs Performed By: #### L 509.7000, L101.9900, L501.5200, L503.6550, L501.6710, L503.6030, L501.2300, L501.3620, L504.2610, L503.6620, L300.8000 ####[facility] [address] [place], [address] Kidney and Bladderon 024 Kidney and Bladder Normal [facility] L501.2276on 07-24-2024 Ionized Calcium 3.39 mg/dL Low 4.36-5.20 [facility] Comment on above: Performed By: #### L 501.2276 ####[facility] [address] [place], [address] LDHon 07-24-2024 LDH 334 U/L High 84-246 [facility] Comment on above: Order Comment: Comme nts: May add to ED labsComments: add to ED labsComments: may add to ED labsmay add to ED labs Performed By: #### L 509.7000, L101.9900, L501.5200, L503.6550, L501.6710, L503.6030, L501.2300, L501.3620, L504.2610, L503.6620, L300.8000 ####[facility] [address] [place], [address] Liver Profileon 07-24-2024 Albumin [Mass/Vol] 2.7 g/dL Low 3.2-5.0 [facility] Comment on above: Performed By: #### L 500.3400 ####[facility] [address] [place], [address] ALK P 75 U/L Normal 45-117 [facility] Comment on above: Performed By: #### L 500.3400 ####[facility] [address] [place], [address] ALT [Catalytic activity/Vol] 17 U/L Normal 13-56 [facility] Comment on above: Performed By: #### L 500.3400 ####[facility] [address] [place], [address] AST [Catalytic activity/Vol] 17 U/L Normal 15-37 [facility] Comment on above: Performed By: #### L 500.3400 ####[facility] [address] [place], [address] Bilirubin [Mass/Vol] 0.20 mg/dL Normal 0.20-1.00 [facility] Comment on above: Result Comment: For patients on eltrombopag therapy, use of Dimension [place] TBIL is not recommended. Performed By: #### L 500.3400 ####[facility] [address] [place], [address] Bilirubin.direct [Mass/Vol] 0.10 mg/dL Normal 0.00-0.30 [facility] Comment on above: Performed By: #### L 500.3400 ####[facility] [address] [place], [address] Globulin (S) [Mass/Vol] 3.7 g/dL Normal 2.2-4.2 [facility] Comment on above: Performed By: #### L 500.3400 ####[facility] [address] [place], [address] T PROT 6.4 g/dL Normal 6.4-8.2 [facility] Comment on above: Performed By: #### L 500.3400 ####[facility] [address] [place], [address] M100.678on 07-24-2024 M100.678 Normal [facility] Comment on above: Performed By: #### M 100.678 ####[facility] [address] [place], [address] Magnesiumon 07-24-2024 Magnesium [Mass/Vol] 1.6 mg/dL Normal 1.6-2.6 [facility] Comment on above: Order Comment: Comme nts: May add to ED labsComments: add to ED labsComments: may add to ED labsmay add to ED labs Performed By: #### L 509.7000, L101.9900, L501.5200, L503.6550, L501.6710, L503.6030, L501.2300, L501.3620, L504.2610, L503.6620, L300.8000 ####[facility] [address] [place], [address] PTHINon 07-24-2024 PTH 1027.8 pg/mL High 18.4-80.1 [facility] Comment on above: Performed By: #### L 506.1000, L100.0100, L500.4050, L509.1000, L3300.0960, L501.9985 ####[facility] [address] [place], [place], [address] Phosphoruson 07-24-2024 Phosphate [Mass/Vol] 5.0 mg/dL High 2.5-4.9 [facility] Comment on above: Order Comment: Comme nts: May add to ED labsComments: add to ED labsComments: may add to ED labsmay add to ED labs Performed By: #### L 509.7000, L101.9900, L501.5200, L503.6550, L501.6710, L503.6030, L501.2300, L501.3620, L504.2610, L503.6620, L300.8000 ####[facility] [address] [place], [place], [address] Procalcitoninon 07-24-2024 Procalcitonin 0.11 ng/mL High 0.00-0.09 [facility] Comment on above: Result Comment: A [...] L501.6710, L503.6030, L501.2300, L501.3620, L504.2610, L503.6620, L300.8000 ####[facility] [address] [place], [address] Stool Occult Blood iFOBon STOB Positive Normal [facility] Comment on above: Performed By: #### M 100.7900 ####[facility] [address] [place], [address] Type AND Screenon 07-24-2024 Ab SCREEN GEL TNP Normal [facility] Comment on above: Order Comment: CMV [...] as:NEGATIVE Performed By: #### B SATHYA, BTS, A54083-6 ####[facility] [address] [place], [address] Urinalysis, Completeon 07-24 BACTERIA 1+ /hpf Normal None Seen [facility] Comment on above: Order Comment: CLEAN CATCH Performed By: #### L 400.0001 ####[facility] [address] [place], [address] WBC 0-5 SEEN Normal 0-5 [facility] Comment on above: Order Comment: CLEAN CATCH Performed By: #### L 400.0001 ####[facility] [address] [place], [address] Urine Sodiumon 07-24-2024 Sodium (U) [Moles/Vol] 23 mmol/L Normal Not Establ. [facility] Comment on above: Performed By: #### L 501.5500, L501.1200 ####[facility] [address] [place], [place], [address] Vitamin D,25 Hydroxyon 07-24 Vitamin D 25-OH 11.5 ng/mL Normal [facility] Comment on above: Result Comment: Greta min D 25(OH) Status Range Deficiency <20 ng/mL (50nmol/L) Insufficiency 20 - 30 ng/mL (50 - 75 nmol/L) Sufficiency 30 - 100 ng/mL (75 - 250 nmol/L) Toxicity >100 ng/mL (>250 nmol/L) Performed By: #### L 506.1000, L100.0100, L500.4050, L509.1000, L3300.0960, L501.9985 ####[facility] [address] [place], [address] 12 Lead EKGon 07-23-2024 12 Lead EKG Normal [facility] BRCon 07-23-2024 RC Normal [facility] Comment on above: Result Comment: [id number] OP RC TRANSFUSED 07/26/24 [id number] OP RC TRANSFUSED 07/26/24 0424 Performed By: #### B RC ####[facility] [address] [place], [place], [address] Result Comment: [id number] OP RC TRANSFUSED 07/24/24 0306 Performed By: #### B RC, BTS, C70786-3 ####[facility] [address] [place], [address] Basic Metabolic Profile (BMP )on 07-23-2024 BUN/CRE 12.0 RATIO Normal 08-22 [facility] Comment on above: Order Comment: 'TROP ' Serial specimen #1, #2 or #3: 1 Performed By: #### L 500.2500, L100.0100, L501.4020 ####[facility] [address] [place], [address] CA,Total 5.4 mg/dL Invalid Interpretation Code 8.5-10.1 [facility] Comment on above: Order Comment: 'TROP ' Serial specimen #1, #2 or #3: 1 Result Comment: Crit ical Result(s) Called at: 23:18:14 07/23/2024 by:[facility] Results read back by same. Performed By: #### L 500.2500, L100.0100, L501.4020 ####[facility] [address] [place], [address] Chloride [Moles/Vol] 101 mmol/L Normal 98-107 [facility] Comment on above: Order Comment: 'TROP ' Serial specimen #1, #2 or #3: 1 Performed By: #### L 500.2500, L100.0100, L501.4020 ####[facility] [address] [place], [address] CO2 [Moles/Vol] 29.0 mmol/L Normal 21.0-32.0 [facility] Comment on above: Order Comment: 'TROP ' Serial specimen #1, #2 or #3: 1 Performed By: #### L 500.2500, L100.0100, L501.4020 ####[facility] [address] [place], [address] Creatinine [Mass/Vol] 3.66 mg/dL High 0.55-1.02 [facility] Comment on above: Order Comment: 'TROP ' Serial specimen #1, #2 or #3: 1 Result Comment: The validity of the calculated GFR GFRAA in patients over70 years has not been determined. Clinical correlation isessential. Performed By: #### L 500.2500, L100.0100, L501.4020 ####[facility] [address] [place], [address] EST GFR - AA 16 mL/min Low >60 [facility] Comment on above: Order Comment: 'TROP ' Serial specimen #1, #2 or #3: 1 Result Comment: Afri can Cameroonian GFR Calc Performed By: #### L 500.2500, L100.0100, L501.4020 ####[facility] [address] [place], [address] GAP 4 Low 5-15 [facility] Comment on above: Order Comment: 'TROP ' Serial specimen #1, #2 or #3: 1 Performed By: #### L 500.2500, L100.0100, L501.4020 ####[facility] [address] [place], [address] GFR/1.73 sq M.predicted among non-blacks MDRD (S/P/Bld) [Vol rate/Area] 13 mL/min/{1.73_m2} Low >60 [facility] Comment on above: Order Comment: 'TROP ' Serial specimen #1, #2 or #3: 1 Result Comment: Non- GFR Calc Performed By: #### L 500.2500, L100.0100, L501.4020 ####[facility] [address] [place], [address] Glucose [Mass/Vol] 146 mg/dL High 74-106 [facility] Comment on above: Order Comment: 'TROP ' Serial specimen #1, #2 or #3: 1 Result Comment: Fast ing Glucose result greater than or equal to 126 mg/dLsuggests DIABETES MELLITUS per A.D.A. criteria. Performed By: #### L 500.2500, L100.0100, L501.4020 ####[facility] [address] [place], [address] Potassium [Moles/Vol] 5.4 mmol/L High 3.5-5.1 [facility] Comment on above: Order Comment: 'TROP ' Serial specimen #1, #2 or #3: 1 Performed By: #### L 500.2500, L100.0100, L501.4020 ####[facility] [address] [place], [address] Sodium [Moles/Vol] 134 mmol/L Low 136-145 [facility] Comment on above: Order Comment: 'TROP ' Serial specimen #1, #2 or #3: 1 Performed By: #### L 500.2500, L100.0100, L501.4020 ####[facility] [address] [place], [address] Urea nitrogen [Mass/Vol] 44 mg/dL High 7-18 [facility] Comment on above: Order Comment: 'TROP ' Serial specimen #1, #2 or #3: 1 Performed By: #### L 500.2500, L100.0100, L501.4020 ####[facility] [address] [place], [address] Bedside Glucoseon 07-23-2024 FINGERSTICK GLU 120 mg/dL High 74-106 [facility] Comment on above: Result Comment: SHELLY GEMENT OF PATIENT CARE PER NURSING PROTOCOL Performed By: #### L 501.080 ####[facility] [address] [place], [address] FINGERSTICK GLU 163 mg/dL High 74-106 [facility] Comment on above: Result Comment: SHELLY GEMENT OF PATIENT CARE PER NURSING PROTOCOL Performed By: #### L 501.080 ####[facility] [address] [place], [address] CBC W/Diff, Automatedon 07-05 Absolute Lymph 1.37 X10 3/uL Normal 0.83-4.51 [facility] Comment on above: Performed By: #### L 500.2500, L100.0100, [id number] ####[facility] [address] [place], [address] Absolute Neut 4.2 X10 3/uL Normal 2.0-7.7 [facility] Comment on above: Performed By: #### L 500.2500, L100.0100, [id number] ####[facility] [address] [place], [address] Basophils/100 WBC (Bld) 0.5 % Normal 0-1 [facility] Comment on above: Performed By: #### L 500.2500, L100.0100, [id number] ####[facility] [address] [place], [address] Eosinophils/100 WBC (Bld) 4.6 % Normal 0-5 [facility] Comment on above: Performed By: #### L 500.2500, L100.0100, [id number] ####[facility] [address] [place], [address] Erythrocyte distribution width (RBC) [Ratio] 13.5 % Normal 11.6-14.6 [facility] Comment on above: Performed By: #### L 500.2500, L100.0100, L501.4020 ####[facility] [address] [place], [address] Hematocrit (Bld) [Volume fraction] 24.0 % Low 37-47 [facility] Comment on above: Performed By: #### L 500.2500, L100.0100, L501.4020 ####[facility] [address] [place], [address] Hemoglobin (Bld) [Mass/Vol] 7.0 g/dL Low 12.0-15.0 [facility] Comment on above: Performed By: #### L 500.2500, L100.0100, L501.4020 ####[facility] [address] [place], [address] IG% 0.600 Normal 0.0-0.9 [facility] Comment on above: Result Comment: IG% - Immature Granulocytes (promyelocytes, myelocytes andmetamyelocytes) > 1% indicates that a LEFT SHIFT is Present. Performed By: #### L 500.2500, L100.0100, L501.4020 ####[facility] [address] [place], [address] Lymphocytes/100 WBC (Bld) 21.1 % Normal 19-41 [facility] Comment on above: Performed By: #### L 500.2500, L100.0100, L501.4020 ####[facility] [address] [place], [address] MCH (RBC) [Entitic mass] 28.3 pg Normal 27.0-32.0 [facility] Comment on above: Performed By: #### L 500.2500, L100.0100, L501.4020 ####[facility] [address] [place], [address] MCHC (RBC) [Mass/Vol] 29.2 g/dL Low 32-36 [facility] Comment on above: Performed By: #### L 500.2500, L100.0100, L501.4020 ####[facility] [address] [place], [address] MCV (RBC) [Entitic vol] 97.2 fL Normal 81-99 [facility] Comment on above: Performed By: #### L 500.2500, L100.0100, L501.4020 ####[facility] [address] [place], [address] Monocytes/100 WBC (Bld) 7.7 % Normal 0-10 [facility] Comment on above: Performed By: #### L 500.2500, L100.0100, L501.4020 ####[facility] [address] [place], [address] Neutrophils/100 WBC (Bld) 65.5 % Normal 47-70 [facility] Comment on above: Performed By: #### L 500.2500, L100.0100, L501.4020 ####[facility] [address] [place], [address] Nucleated RBC (Bld) [#/Vol] 0 10*3/uL Normal 0-5 [facility] Comment on above: Performed By: #### L 500.2500, L100.0100, L501.4020 ####[facility] [address] [place], [address] Platelet mean volume (Bld) [Entitic vol] 10.2 fL Normal 6.2-12.0 [facility] Comment on above: Performed By: #### L 500.2500, L100.0100, L501.4020 ####[facility] [address] [place], [address] Platelets (Bld) [#/Vol] 182 10*3/uL Normal 150-450 [facility] Comment on above: Performed By: #### L 500.2500, L100.0100, L501.4020 ####[facility] [address] [place], [address] RBC (Bld) [#/Vol] 2.47 10*6/uL Low 4.2-5.4 [facility] Comment on above: Performed By: #### L 500.2500, L100.0100, L501.4020 ####[facility] [address] [place], [address] RDW SD 48.6 fl High 35.1-43.9 [facility] Comment on above: Performed By: #### L 500.2500, L100.0100, L501.4020 ####[facility] [address] [place], [address] WBC (Bld) [#/Vol] 6.5 10*3/uL Normal 4.4-11.0 [facility] Comment on above: Performed By: #### L 500.2500, L100.0100, L501.4020 ####[facility] [address] [place], [address] Chest PA and Lateralon 07-23 Chest PA and Lateral Normal [facility] Emergency Department Summary on 07-23-2024 Emergency Department Summary Normal [facility] H AND P Exam - Hospitaliston 07-23-2024 H&P Exam - Hospitalist Normal [facility] L501.4020on 07-23-2024 TROPONIN-I HS 30 pg/mL Normal 3.0-54.0 [facility] Comment on above: Order Comment: 'TROP ' Serial specimen #1, #2 or #3: 1 Result Comment: Ry adhikari Note: New Test Units and Gender Specific Reference Ranges. For more information see Policy Stat Procedure [place] High Sensitivity Troponin (TNIH) and attachments. Performed By: #### L 500.2500, L100.0100, L501.4020 ####[facility] [address] [place], [address] Urinalysis, Completeon 07-23 EPI,SQUAMOUS 0 SEEN Normal 5-10 [facility] Comment on above: Order Comment: CLEAN CATCH Performed By: #### L 400.0001 ####[facility] [address] [place], [address] Mucus Ql (Urine sed) 0 SEEN Normal [facility] Comment on above: Order Comment: CLEAN CATCH Performed By: #### L 400.0001 ####[facility] [address] [place], [address] RBC 0 SEEN Normal 0-5 [facility] Comment on above: Order Comment: CLEAN CATCH Performed By: #### L 400.0001 ####[facility] [address] [place], [address] Office Visit Reporton 2023 Office Visit Report Normal [facility] Dexa Bone Density Studyon Dexa Bone Density Study Normal [facility] Cardiology Visit Reporton Cardiology Visit Report Normal [facility] Chest without Contraston Chest without Contrast Normal [facility] 24 HR Urine Creatinineon UR TOTAL VOLUME 1.70 Normal [facility] Comment on above: Performed By: #### L 502.000, L500.9000 ####[facility] [address] [place], [address] UR.CREAT/24hr 0.62 g/24 HR Low 0.70-1.90 [facility] Comment on above: Performed By: #### L 502.000, L500.9000 ####[facility] [address] [place], [address] URINE CREAT 35.80 mg/dL Normal NO RANGE EST. [facility] Comment on above: Performed By: #### L 502.000, L500.9000 ####[facility] [address] [place], [address] Protein, Urine 24HRon 2023 24hr UR PROTEIN 2261.5 mg/24HR High <150 MG/24HR [facility] Comment on above: Performed By: #### L 502.000, L500.9000 ####[facility] [address] [place], [address] Protein Ql (U) 131.1 mg/dL High <11.9 [facility] Comment on above: Performed By: #### L 502.000, L500.9000 ####[facility] [address] [place], [address] UR COLLECT TIME 24.0 HOURS Normal 24.0 [facility] Comment on above: Performed By: #### L 502.000, L500.9000 ####[facility] [address] [place], [address] UR TOTAL VOLUME 1725 mL Normal [facility] Comment on above: Performed By: #### L 502.000, L500.9000 ####[facility] [address] [place], [address] Emergency Department Summary on 04-15-2024 Emergency Department Summary Normal [facility] 12 Lead EKGon 04-14-2024 12 Lead EKG Normal [facility] Basic Metabolic Profile (BMP )on 04-14-2024 BUN/CRE 12.4 RATIO Normal 10-20 [facility] Comment on above: Order Comment: 'TROP ' Serial specimen #1, #2 or #3: 1 Performed By: #### L 501.4020, L100.0100, L500.2500, L501.5200 ####[facility] [address] [place], [address] CA,Total 8.8 mg/dL Normal 8.5-10.1 [facility] Comment on above: Order Comment: 'TROP ' Serial specimen #1, #2 or #3: 1 Performed By: #### L 501.4020, L100.0100, L500.2500, L501.5200 ####[facility] [address] [place], [address] Chloride [Moles/Vol] 102 mmol/L Normal 98-107 [facility] Comment on above: Order Comment: 'TROP ' Serial specimen #1, #2 or #3: 1 Performed By: #### L 501.4020, L100.0100, L500.2500, L501.5200 ####[facility] [address] [place], [address] CO2 [Moles/Vol] 38.0 mmol/L High 21.0-32.0 [facility] Comment on above: Order Comment: 'TROP ' Serial specimen #1, #2 or #3: 1 Performed By: #### L 501.4020, L100.0100, L500.2500, L501.5200 ####[facility] [address] [place], [address] Creatinine [Mass/Vol] 2.42 mg/dL High 0.55-1.02 [facility] Comment on above: Order Comment: 'TROP ' Serial specimen #1, #2 or #3: 1 Result Comment: The validity of the calculated GFR GFRAA in patients over70 years has not been determined. Clinical correlation isessential. Performed By: #### L 501.4020, L100.0100, L500.2500, L501.5200 ####[facility] [address] [place], [address] ECRCL 15.74 ml/min Normal [facility] Comment on above: Order Comment: 'TROP ' Serial specimen #1, #2 or #3: 1 Performed By: #### L 501.4020, L100.0100, L500.2500, L501.5200 ####[facility] [address] [place], [address] EST GFR - AA 26 mL/min Low >60 [facility] Comment on above: Order Comment: 'TROP ' Serial specimen #1, #2 or #3: 1 Result Comment: Afri can Cameroonian GFR Calc Performed By: #### L 501.4020, L100.0100, L500.2500, L501.5200 ####[facility] [address] [place], [address] GAP 0 Low 5-15 [facility] Comment on above: Order Comment: 'TROP ' Serial specimen #1, #2 or #3: 1 Performed By: #### L 501.4020, L100.0100, L500.2500, L501.5200 ####[facility] [address] [place], [address] GFR/1.73 sq M.predicted among non-blacks MDRD (S/P/Bld) [Vol rate/Area] 21 mL/min/{1.73_m2} Low >60 [facility] Comment on above: Order Comment: 'TROP ' Serial specimen #1, #2 or #3: 1 Result Comment: Non- GFR Calc Performed By: #### L 501.4020, L100.0100, L500.2500, L501.5200 ####[facility] [address] [place], [address] Glucose [Mass/Vol] 187 mg/dL High 74-106 [facility] Comment on above: Order Comment: 'TROP ' Serial specimen #1, #2 or #3: 1 Result Comment: Fast ing Glucose result greater than or equal to 126 mg/dLsuggests DIABETES MELLITUS per A.D.A. criteria. Performed By: #### L 501.4020, L100.0100, L500.2500, L501.5200 ####[facility] [address] [place], [address] Potassium [Moles/Vol] 4.6 mmol/L Normal 3.5-5.1 [facility] Comment on above: Order Comment: 'TROP ' Serial specimen #1, #2 or #3: 1 Performed By: #### L 501.4020, L100.0100, L500.2500, L501.5200 ####[facility] [address] [place], [address] Sodium [Moles/Vol] 140 mmol/L Normal 136-145 [facility] Comment on above: Order Comment: 'TROP ' Serial specimen #1, #2 or #3: 1 Performed By: #### L 501.4020, L100.0100, L500.2500, L501.5200 ####[facility] [address] [place], [address] Urea nitrogen [Mass/Vol] 30 mg/dL High 7-18 [facility] Comment on above: Order Comment: 'TROP ' Serial specimen #1, #2 or #3: 1 Performed By: #### L 501.4020, L100.0100, L500.2500, L501.5200 ####[facility] [address] [place], [address] CBC W/Diff, Automatedon 04-03 Absolute Lymph 1.20 X10 3/uL Normal 0.83-4.51 [facility] Comment on above: Performed By: #### L 501.4020, L100.0100, L500.2500, L501.5200 ####[facility] [address] [place], [address] Absolute Neut 2.6 X10 3/uL Normal 2.0-7.7 [facility] Comment on above: Performed By: #### L 501.4020, L100.0100, L500.2500, L501.5200 ####[facility] [address] [place], [address] Basophils/100 WBC (Bld) 1.1 % High 0-1 [facility] Comment on above: Performed By: #### L 501.4020, L100.0100, L500.2500, L501.5200 ####[facility] [address] [place], [address] Eosinophils/100 WBC (Bld) 5.0 % Normal 0-5 [facility] Comment on above: Performed By: #### L 501.4020, L100.0100, L500.2500, L501.5200 ####[facility] [address] [place], [address] Erythrocyte distribution width (RBC) [Ratio] 12.7 % Normal 11.6-14.6 [facility] Comment on above: Performed By: #### L 501.4020, L100.0100, L500.2500, L501.5200 ####[facility] [address] [place], [address] Hematocrit (Bld) [Volume fraction] 28.2 % Low 37-47 [facility] Comment on above: Performed By: #### L 501.4020, L100.0100, L500.2500, L501.5200 ####[facility] [address] [place], [address] Hemoglobin (Bld) [Mass/Vol] 8.4 g/dL Low 12.0-15.0 [facility] Comment on above: Performed By: #### L 501.4020, L100.0100, L500.2500, L501.5200 ####[facility] [address] [place], [address] IG% 0.200 Normal 0.0-0.9 [facility] Comment on above: Result Comment: IG% - Immature Granulocytes (promyelocytes, myelocytes andmetamyelocytes) > 1% indicates that a LEFT SHIFT is Present. Performed By: #### L 501.4020, L100.0100, L500.2500, L501.5200 ####[facility] [address] [place], [address] Lymphocytes/100 WBC (Bld) 27.1 % Normal 19-41 [facility] Comment on above: Performed By: #### L 501.4020, L100.0100, L500.2500, L501.5200 ####[facility] [address] [place], [address] MCH (RBC) [Entitic mass] 28.9 pg Normal 27.0-32.0 [facility] Comment on above: Performed By: #### L 501.4020, L100.0100, L500.2500, L501.5200 ####[facility] [address] [place], [address] MCHC (RBC) [Mass/Vol] 29.8 g/dL Low 32-36 [facility] Comment on above: Performed By: #### L 501.4020, L100.0100, L500.2500, L501.5200 ####[facility] [address] [place], [address] MCV (RBC) [Entitic vol] 96.9 fL Normal 81-99 [facility] Comment on above: Performed By: #### L 501.4020, L100.0100, L500.2500, L501.5200 ####[facility] [address] [place], [address] Monocytes/100 WBC (Bld) 7.9 % Normal 0-10 [facility] Comment on above: Performed By: #### L 501.4020, L100.0100, L500.2500, L501.5200 ####[facility] [address] [place], [address] Neutrophils/100 WBC (Bld) 58.7 % Normal 47-70 [facility] Comment on above: Performed By: #### L 501.4020, L100.0100, L500.2500, L501.5200 ####[facility] [address] [place], [address] Nucleated RBC (Bld) [#/Vol] 0 10*3/uL Normal 0-5 [facility] Comment on above: Performed By: #### L 501.4020, L100.0100, L500.2500, L501.5200 ####[facility] [address] [place], [address] Platelet mean volume (Bld) [Entitic vol] 10.5 fL Normal 6.2-12.0 [facility] Comment on above: Performed By: #### L 501.4020, L100.0100, L500.2500, L501.5200 ####[facility] [address] [place], [address] Platelets (Bld) [#/Vol] 126 10*3/uL Low 150-450 [facility] Comment on above: Performed By: #### L 501.4020, L100.0100, L500.2500, L501.5200 ####[facility] [address] [place], [address] RBC (Bld) [#/Vol] 2.91 10*6/uL Low 4.2-5.4 [facility] Comment on above: Performed By: #### L 501.4020, L100.0100, L500.2500, L501.5200 ####[facility] [address] [place], [address] RDW SD 45.0 fl High 35.1-43.9 [facility] Comment on above: Performed By: #### L 501.4020, L100.0100, L500.2500, L501.5200 ####[facility] [address] [place], [address] WBC (Bld) [#/Vol] 4.4 10*3/uL Normal 4.4-11.0 [facility] Comment on above: Performed By: #### L 501.4020, L100.0100, L500.2500, L501.5200 ####[facility] [address] [place], [address] Chest PA and Lateralon 04-14 Chest PA and Lateral Normal [facility] Endocrinology Visit Reporton 04-14-2024 Endocrinology Visit Report Normal [facility] L501.4020on 04-14-2024 TROPONIN-I HS 20 pg/mL Normal 3.0-54.0 [facility] Comment on above: Order Comment: 'TROP ' Serial specimen #1, #2 or #3: 1 Result Comment: Ry adhikari Note: New Test Units and Gender Specific Reference Ranges. For more information see Policy Stat Procedure [place] High Sensitivity Troponin (TNIH) and attachments. Performed By: #### L 501.4020, L100.0100, L500.2500, L501.5200 ####[facility] [address] [place], [address] Magnesiumon 04-14-2024 Magnesium [Mass/Vol] 1.6 mg/dL Normal 1.6-2.6 [facility] Comment on above: Order Comment: 'TROP ' Serial specimen #1, #2 or #3: 1 Performed By: #### L 501.4020, L100.0100, L500.2500, L501.5200 ####[facility] [address] [place], [address] Basophil percentageOrdered B y: Christy Huerta on 01-15-2024 Basophil percentage 3.7 mg/dL 2.5-4.9 [facility] Bilirubin [Mass/Vol] 0.50 mg/dL 0.20-1.00 [facility] Comment on above: For patients on eltr ombopag therapy, use of Dimension [place] TBIL is not recommended. Chloride [Moles/Vol] 105 mmol/L 98-107 [facility] Cholesterol [Mass/Vol] 145 mg/dL <200 [facility] Comment on above: <200 mg/dL Desirable 200-240 mg/dL Borderline >240 mg/dL High Risk Glucose [Mass/Vol] 180 mg/dL 74-106 [facility] Comment on above: Fasting Glucose resu lt greater than or equal to 126 mg/dL suggests DIABETES MELLITUS per A.D.A. criteria. Hemoglobin (Bld) [Mass/Vol] 11.4 g/dL 12.0-15.0 [facility] Potassium [Moles/Vol] 4.8 mmol/L 3.5-5.1 [facility] Protein [Mass/Vol] 6.8 g/dL 6.4-8.2 [facility] Sodium [Moles/Vol] 140 mmol/L 136-145 [facility] Triglyceride [Mass/Vol] 132 mg/dL <199 [facility] Comment on above: The drugs N-Acetylcy steine and Metamizole may falsely depress this assay.Serum Triglycerides Reference Interval Normal <150 mg/dL Borderline high 150 - 199 mg/dL High 200 - 499 mg/dL Very High > or = 500 mg/dL WBC (Bld) [#/Vol] 6.9 10*3/uL 4.4-11.0 [facility] Determination of erythrocyte mean corpuscular volume (MCV)Ordered By: Christy Huerta on 01-15-2024 MCV (RBC) [Entitic vol] 95.9 fL 81-99 [facility] Direct bilirubinOrdered By: Christy Huerta on 01-15-2024 Bilirubin.direct [Mass/Vol] 0.10 mg/dL 0.00-0.30 [facility] Erythrocyte distribution wid th ratioOrdered By: Christy Huerta on 01-15-2024 Erythrocyte distribution width (RBC) [Ratio] 12.3 % 11.6-14.6 [facility] Erythrocyte distribution wid th standard deviationOrdered By: Christy Huerta on 01-15-2024 Erythrocyte distribution width (RBC) [Entitic vol] 43.2 fL 35.1-43.9 [facility] Hematocrit Auto (Bld) [Volum e fraction]Ordered By: Christy Huerta on 01-15-2024 Hematocrit (Bld) [Volume fraction] 37.6 % 37-47 [facility] Laboratory - Chemistry and C hemistry - challengeOrdered By: Christy Huerta on 01-15-2024 Albumin/Globulin [Mass ratio] 0.9 {ratio} 0.9-2.4 [facility] ALP [Catalytic activity/Vol] 82 U/L 45-117 [facility] ALT [Catalytic activity/Vol] 14 U/L 13-56 [facility] Cholesterol in HDL [Mass/Vol] 59 mg/dL >40 [facility] Comment on above: The drugs N-Acetylcy steine and Metamizole may falsely depress this assay. Reference Range HDL <40 mg/dL Low HDL Cholesterol HDL >or= 60 mg/dL High HDL Cholesterol Cholesterol in LDL [Mass/Vol] 60 mg/dL 0-130 [facility] CO2 [Moles/Vol] 31.0 mmol/L 21.0-32.0 [facility] Cobalamin (Vitamin B12) [Mass/Vol] 753 pg/mL 211-911 [facility] Globulin (S) [Mass/Vol] 3.5 g/dL 2.2-4.2 [facility] Urea nitrogen/Creatinine [Mass ratio] 11.8 mg/mg 10-20 [facility] Laboratory - Hematology and Cell countsOrdered By: Christy Huerta on 01-15-2024 MCH (RBC) [Entitic mass] 29.1 pg 27.0-32.0 [facility] MCHC (RBC) [Mass/Vol] 30.3 g/dL 32-36 [facility] Platelet mean volume (Bld) [Entitic vol] 10.6 fL 6.2-12.0 [facility] Platelets (Bld) [#/Vol] 188 10*3/uL 150-450 [facility] No Panel InformationOrdered By: Christy Huerta on 01-15-2024 Estimated GFR (MDRD) Amer 22 mL/min >60 [facility] Comment on above: GFR Calc Estimated GFR (MDRD) Non-Af Amer 18 mL/min >60 [facility] Comment on above: Non- GFR Calc Parathyroid Hormone (Intact) 137.2 pg/mL 18.4-80.1 [facility] VLDL Cholesterol 26 mg/dL 5-40 [facility] RBC Auto (Bld) [#/Vol]Ordere d By: Christy Huerta on 01-15-2024 RBC (Bld) [#/Vol] 3.92 10*6/uL 4.2-5.4 [facility] Serum or plasma calcium lesly urement (mass/volume)Ordered By: Christy Huerta on 01-15-2024 Calcium [Mass/Vol] 9.1 mg/dL 8.5-10.1 [facility] Serum or plasma creatinine m easurement (mass/volume)Ordered By: Christy Huerta on 01-15-2024 Creatinine [Mass/Vol] 2.79 mg/dL 0.55-1.02 [facility] Comment on above: The validity of the calculated GFR & GFRAA in patients over 70 years has not been determined. Clinical correlation is essential. Serum or plasma thyroid stim ulating hormone (TSH) measurement (units/volume)Ordered By: Christy Huerta on 01-15-2024 TSH Qn 2.34 uIU/mL 0.358-3.74 [facility] Serum or plasma urea nitroge n measurement (mass/volume)Ordered By: Christy Huerta on 01-15-2024 Urea nitrogen [Mass/Vol] 33 mg/dL 7-18 [facility] Thin prep Papanicolaou smear with manual screeningOrdered By: Christy Huerta on 01-15-2024 Thin prep Papanicolaou smear with manual screening 3.3 g/dL 3.2-5.0 [facility] Thin prep Papanicolaou smear with manual screening 16 U/L 15-37 [facility] Thin prep Papanicolaou smear with manual screening 4 5-15 [facility] Laboratory - Hematology and Cell countson 12-03-2023 HbA1c (Bld) [Mass fraction] 8.6 % 4.2-6.3 [facility] Basophil percentageOrdered B y: Christy Huerta on 11-18-2023 Basophil percentage 3.3 mg/dL 2.5-4.9 [facility] Chloride [Moles/Vol] 108 mmol/L 98-107 [facility] Glucose [Mass/Vol] 359 mg/dL 74-106 [facility] Comment on above: Glucose result great er than or equal to 200 mg/dLsuggests DIABETES MELLITUS per A.D.A. criteria. Potassium [Moles/Vol] 5.6 mmol/L 3.5-5.1 [facility] Sodium [Moles/Vol] 139 mmol/L 136-145 [facility] Laboratory - Chemistry and C hemistry - challengeOrdered By: Christy Huerta on 11-18-2023 CO2 [Moles/Vol] 27.0 mmol/L 21.0-32.0 [facility] Urea nitrogen/Creatinine [Mass ratio] 18.5 mg/mg 10-20 [facility] No Panel InformationOrdered By: Christy Huerta on 11-18-2023 Estimated GFR (MDRD) Amer 22 mL/min >60 [facility] Comment on above: GFR Calc Estimated GFR (MDRD) Non-Af Amer 19 mL/min >60 [facility] Comment on above: Non- GFR Calc Serum or plasma calcium lesly urement (mass/volume)Ordered By: Christy Huerta on 11-18-2023 Calcium [Mass/Vol] 8.8 mg/dL 8.5-10.1 [facility] Serum or plasma creatinine m easurement (mass/volume)Ordered By: Christy Huerta on 11-18-2023 Creatinine [Mass/Vol] 2.75 mg/dL 0.55-1.02 [facility] Comment on above: The validity of the calculated GFR & GFRAA in patients over 70 years has not been determined. Clinical correlation is essential. Serum or plasma urea nitroge n measurement (mass/volume)Ordered By: Christy Huerta on 11-18-2023 Urea nitrogen [Mass/Vol] 51 mg/dL 7-18 [facility] Thin prep Papanicolaou smear with manual screeningOrdered By: Christy Huerta on 11-18-2023 Thin prep Papanicolaou smear with manual screening 2.9 g/dL 3.2-5.0 [facility] Bacteria identified Respirat ory culture Nom (Unsp spec)Ordered By: Jeanna Davis on 10-29-2023 Respiratory Culture Pseudomonas aeruginosa [facility] [facility] Respiratory Culture Staphylococcus aureus [facility] Respiratory Culture Pseudomonas aeruginosa [facility] Respiratory Culture Staphylococcus aureus [facility] Gram stain for investigation of transfusion reactionOrdered By: Jeanna Davis on 10-29-2023 Microscopic observation Gram stain Nom (Unsp spec) [facility] Microscopic observation Gram stain Nom (Unsp spec) [facility] 24 hour urine protein measur ement (mass/time)Ordered By: Christy Huerta on 10-13-2023 Protein (24H U) [Mass/Time] 2213.8 mg/24HR 0-151 [facility] 24 hour urine protein measur ement (mass/volume)Ordered By: Christy Huerta on 10-13-2023 Protein (24H U) [Mass/Vol] 177.1 mg/dL 0.0-11.8 [facility] Creatinine clearanceOrdered By: Christy Huerta on 10-13-2023 Creatinine renal clearance Unsp time (U+S/P) [Vol/Time] 21 ml/min 100-200 [facility] Culture, urineOrdered By: Aashish Huerta on 10-13-2023 Bacteria identified Cx Nom (U) Culture exhibits no growth. [facility] Bacteria identified Cx Nom (U) Culture exhibits no growth. [facility] Laboratory - Specimen inform ationOrdered By: Christy Huerta on 10-13-2023 Collection duration (U) 24.0 HOURS 24.0-24.0 [facility] Comment on above: *Additional results available. Contact laboratory/see report* No Panel InformationOrdered By: Christy Huerta on 10-13-2023 Estimated GFR (MDRD) Amer 25 mL/min >60 [facility] Comment on above: GFR Calc Estimated GFR (MDRD) Non-Af Amer 21 mL/min >60 [facility] Comment on above: Non- GFR Calc Timed Urine Volume 1250 mL [facility] Comment on above: *Additional results available. Contact laboratory/see report* Thin prep Papanicolaou smear with manual screeningOrdered By: Christy Huerta on 10-13-2023 Creatinine (U) [Mass/Vol] 2.5 mg/dL 0.6-1.0 [facility] Urine creatinine measurement (mass/volume)Ordered By: Christy Huerta on 10-13-2023 Creatinine (U) [Mass/Vol] 61.4 mg/dL NO RANGE EST. [facility] Basophil percentageOrdered B y: Christy Huerta on 10-09-2023 Basophil percentage 10-25 SEEN /hpf 0-5 [facility] Bilirubin Test strip Ql (U)O rdered By: Christy Huerta on 10-09-2023 Bilirubin Ql (U) Negative Negative [facility] Ketones Test strip Ql (U)Ord ered By: Christy Huerta on 10-09-2023 Ketones Ql (U) Negative Negative [facility] Mucus LM Ql (Urine sed)Order ed By: Christy Huerta on 10-09-2023 Mucus Ql (Urine sed) 0 SEEN /hpf [facility] Nitrite Test strip Ql (U)Ord ered By: Christy Huerta on 10-09-2023 Nitrite Ql (U) Negative Negative [facility] Protein Test strip Ql (U)Ord ered By: Christy Huerta on 10-09-2023 Protein Ql (U) 100 mg/dl Negative [facility] Squamous epithelial cells de tection in urine sediment by light microscopyOrdered By: Christy Huerta on 10-09-2023 Epithelial cells.squamous LM Ql (Urine sed) 0-5 SEEN /hpf 5-10 [facility] Urine blood detectionOrdered By: Christy Huerta on 10-09-2023 RBC Ql (U) 10 /ul Negative [facility] RBC Ql (U) 0-5 SEEN /hpf 0-5 [facility] Urine clarityOrdered By: Malcolm Huerta on 10-09-2023 Clarity (U) Sl. Cloudy Clear [facility] Urine color determinationOrd ered By: Christy Huerta on 10-09-2023 Color (U) Yellow Yellow [facility] Urine glucose detectionOrder ed By: Christy Huerta on 10-09-2023 Glucose Ql (U) 250 mg/dl Normal [facility] Urine leukocyte esterase det ection by dipstickOrdered By: Christy Huerta on 10-09-2023 Leukocyte esterase Test strip Ql (U) 100 /ul Negative [facility] Urine pHOrdered By: Mary Huerta on 10-09-2023 pH (U) 5.0 [pH] 5.0 - 8.0 [facility] Urine sediment bacteria coun t by microscopy (number/high power field)Ordered By: Christy Huerta on 10-09-2023 Bacteria LM.HPF (Urine sed) [#/Area] 0 /[HPF] None Seen [facility] Urine specific gravity measu rementOrdered By: Christy Huerta on 10-09-2023 Specific gravity (U) [Rel density] 1.015 1.002-1.030 [facility] Urobilinogen Auto test strip Ql (U)Ordered By: Christy Huerta on 10-09-2023 Urobilinogen Ql (U) Normal mg/dl Normal [facility] Basophil percentageOrdered B y: Christy Huerta on 10-06-2023 Basophil percentage 2.9 mg/dL 2.5-4.9 [facility] Chloride [Moles/Vol] 104 mmol/L 98-107 [facility] Glucose [Mass/Vol] 273 mg/dL 74-106 [facility] Comment on above: Glucose result great er than or equal to 200 mg/dLsuggests DIABETES MELLITUS per A.D.A. criteria. Potassium [Moles/Vol] 4.8 mmol/L 3.5-5.1 [facility] Sodium [Moles/Vol] 139 mmol/L 136-145 [facility] WBC (Bld) [#/Vol] 10.3 10*3/uL 4.4-11.0 [facility] Blood erythrocytes count (nu mber/volume)Ordered By: Christy Huerta on 10-06-2023 RBC (Bld) [#/Vol] 3.48 10*6/uL 4.2-5.4 [facility] Blood hemoglobin measurement (mass/volume)Ordered By: Christy Huerta on 10-06-2023 Hemoglobin (Bld) [Mass/Vol] 10.5 g/dL 12.0-15.0 [facility] Blood platelet mean volumeOr dered By: Christy Huerta on 10-06-2023 Platelet mean volume (Bld) [Entitic vol] 10.5 fL 6.2-12.0 [facility] Determination of erythrocyte mean corpuscular volume (MCV)Ordered By: Christy Huerta on 10-06-2023 MCV (RBC) [Entitic vol] 99.1 fL 81-99 [facility] Hematocrit Auto (Bld) [Volum e fraction]Ordered By: Christy Huerta on 10-06-2023 Hematocrit (Bld) [Volume fraction] 34.5 % 37-47 [facility] Laboratory - Chemistry and C hemistry - challengeOrdered By: Christy Huerta on 10-06-2023 CO2 [Moles/Vol] 30.0 mmol/L 21.0-32.0 [facility] Urea nitrogen/Creatinine [Mass ratio] 13.7 mg/mg 10-20 [facility] Laboratory - Hematology and Cell countsOrdered By: Christy Huerta on 10-06-2023 Erythrocyte distribution width (RBC) [Entitic vol] 45.4 fL 35.1-43.9 [facility] Erythrocyte distribution width (RBC) [Ratio] 12.6 % 11.6-14.6 [facility] MCH (RBC) [Entitic mass] 30.2 pg 27.0-32.0 [facility] MCHC Auto (RBC) [Mass/Vol]Or dered By: Christy Huerta on 10-06-2023 MCHC (RBC) [Mass/Vol] 30.4 g/dL 32-36 [facility] No Panel InformationOrdered By: Christy Huerta on 10-06-2023 Estimated GFR (MDRD) Amer 26 mL/min >60 [facility] Comment on above: GFR Calc Estimated GFR (MDRD) Non-Af Amer 22 mL/min >60 [facility] Comment on above: Non- GFR Calc Parathyroid Hormone (Intact) 53.6 pg/mL 18.4-80.1 [facility] Platelets bldOrdered By: Malcolm Huerta on 10-06-2023 Platelets (Bld) [#/Vol] 180 10*3/uL 150-450 [facility] Serum or plasma albumin lesly urement (mass/volume)Ordered By: Christy Huerta on 10-06-2023 Albumin [Mass/Vol] 2.9 g/dL 3.2-5.0 [facility] Serum or plasma calcium lesly urement (mass/volume)Ordered By: Christy Huerta on 10-06-2023 Calcium [Mass/Vol] 9.1 mg/dL 8.5-10.1 [facility] Serum or plasma creatinine m easurement (mass/volume)Ordered By: Christy Huerta on 10-06-2023 Creatinine [Mass/Vol] 2.41 mg/dL 0.55-1.02 [facility] Comment on above: The validity of the calculated GFR & GFRAA in patients over 70 years has not been determined. Clinical correlation is essential. Serum or plasma urea nitroge n measurement (mass/volume)Ordered By: Christy Huerta on 10-06-2023 Urea nitrogen [Mass/Vol] 33 mg/dL 7-18 [facility] Urine creatinine measurement (mass/volume)Ordered By: Christy Huerta on 10-06-2023 Creatinine (U) [Mass/Vol] 65.00 mg/dL NO RANGE EST. [facility] Urine protein measurement (m ass/volume)Ordered By: Christy Huerta on 10-06-2023 Protein (U) [Mass/Vol] 229.6 mg/dL 0.0-11.[address] [facility] Urine protein/creatinine mas s ratioOrdered By: Christy Huerta on 10-06-2023 Protein/Creatinine (U) [Mass ratio] 3532 mg/g CRE 0-200 [facility] Laboratory - Hematology and Cell countson 07-14-2023 HbA1c (Bld) [Mass fraction] 8.7 % 4.2-6.3 [facility] Basophil percentageOrdered B y: Christy Huerta on 06-19-2023 Basophil percentage 3.3 mg/dL 2.5-4.9 [facility] Chloride [Moles/Vol] 107 mmol/L 98-107 [facility] Glucose [Mass/Vol] 251 mg/dL 74-106 [facility] Comment on above: Glucose result great er than or equal to 200 mg/dLsuggests DIABETES MELLITUS per A.D.A. criteria. Potassium [Moles/Vol] 5.4 mmol/L 3.5-5.1 [facility] Sodium [Moles/Vol] 140 mmol/L 136-145 [facility] Laboratory - Chemistry and C hemistry - challengeOrdered By: Christy Huerta on 06-19-2023 CO2 [Moles/Vol] 32.0 mmol/L 21.0-32.0 [facility] Urea nitrogen/Creatinine [Mass ratio] 14.5 mg/mg 10-20 [facility] No Panel InformationOrdered By: Christy Huerta on 06-19-2023 Estimated GFR (MDRD) Amer 27 mL/min >60 [facility] Comment on above: GFR Calc Estimated GFR (MDRD) Non-Af Amer 22 mL/min >60 [facility] Comment on above: Non- GFR Calc Parathyroid Hormone (Intact) 118.0 pg/mL 18.4-80.1 [facility] Serum or plasma albumin lesly urement (mass/volume)Ordered By: Christy Huerta on 06-19-2023 Albumin [Mass/Vol] 3.0 g/dL 3.2-5.0 [facility] Serum or plasma calcium lesly urement (mass/volume)Ordered By: Christy Huerta on 06-19-2023 Calcium [Mass/Vol] 8.4 mg/dL 8.5-10.1 [facility] Serum or plasma creatinine m easurement (mass/volume)Ordered By: Christy Huerta on 06-19-2023 Creatinine [Mass/Vol] 2.34 mg/dL 0.55-1.02 [facility] Comment on above: The validity of the calculated GFR & GFRAA in patients over 70 years has not been determined. Clinical correlation is essential. Serum or plasma urea nitroge n measurement (mass/volume)Ordered By: Christy Huerta on 06-19-2023 Urea nitrogen [Mass/Vol] 34 mg/dL 7-18 [facility] Urine creatinine measurement (mass/volume)Ordered By: Christy Huerta on 06-19-2023 Creatinine (U) [Mass/Vol] 85.10 mg/dL NO RANGE EST. [facility] Urine protein measurement (m ass/volume)Ordered By: Christy Huerta on 06-19-2023 Protein (U) [Mass/Vol] 247.0 mg/dL 0.0-11.8 [facility] Urine protein/creatinine mas s ratioOrdered By: Christy Huerta on 06-19-2023 Protein/Creatinine (U) [Mass ratio] 2902 mg/g CRE 0-200 [facility] Basophil percentageOrdered B y: Sin Lujan on 03-17-2023 Basophil percentage 3.4 mg/dL 2.5-4.9 [facility] Chloride [Moles/Vol] 100 mmol/L 98-107 [facility] Glucose [Mass/Vol] 151 mg/dL 74-106 [facility] Comment on above: Fasting Glucose resu lt greater than or equal to 126 mg/dL suggests DIABETES MELLITUS per A.D.A. criteria. Potassium [Moles/Vol] 5.1 mmol/L 3.5-5.1 [facility] Sodium [Moles/Vol] 137 mmol/L 136-145 [facility] Laboratory - Chemistry and C hemistry - challengeOrdered By: Sin Lujan on 03-17-2023 CO2 [Moles/Vol] 32.0 mmol/L 21.0-32.0 [facility] Magnesium [Mass/Vol] 2.5 mg/dL 1.6-2.6 [facility] Urea nitrogen/Creatinine [Mass ratio] 16.1 mg/mg 10-20 [facility] No Panel InformationOrdered By: Sin Lujan on 03-17-2023 Estimated GFR (MDRD) Amer 24 mL/min >60 [facility] Comment on above: GFR Calc Estimated GFR (MDRD) Non-Af Amer 20 mL/min >60 [facility] Comment on above: Non- GFR Calc Parathyroid Hormone (Intact) 39.8 pg/mL 18.4-80.1 [facility] Serum or plasma albumin lesly urement (mass/volume)Ordered By: Sin Lujan on 03-17-2023 Albumin [Mass/Vol] 3.3 g/dL 3.2-5.0 [facility] Serum or plasma calcium lesly urement (mass/volume)Ordered By: Sin Lujan on 03-17-2023 Calcium [Mass/Vol] 9.6 mg/dL 8.5-10.1 [facility] Serum or plasma creatinine m easurement (mass/volume)Ordered By: Sin Lujan on 03-17-2023 Creatinine [Mass/Vol] 2.61 mg/dL 0.55-1.02 [facility] Comment on above: The validity of the calculated GFR & GFRAA in patients over 70 years has not been determined. Clinical correlation is essential. Serum or plasma urea nitroge n measurement (mass/volume)Ordered By: Sin Lujan on 03-17-2023 Urea nitrogen [Mass/Vol] 42 mg/dL 7-18 [facility] Urine creatinine measurement (mass/volume)Ordered By: Sin Lujan on 03-17-2023 Creatinine (U) [Mass/Vol] 29.80 mg/dL NO RANGE EST. [facility] Urine protein measurement (m ass/volume)Ordered By: Sin Lujan on 03-17-2023 Protein (U) [Mass/Vol] 75.7 mg/dL 0.0-11.8 [facility] Urine protein/creatinine mas s ratioOrdered By: Sin Lujan on 03-17-2023 Protein/Creatinine (U) [Mass ratio] 2540 mg/g CRE 0-200 [facility] Basophil percentageOrdered B y: Dr. Lujan on 02-26-2023 Basophil percentage 4.1 mg/dL 2.5-4.9 [facility] Bilirubin [Mass/Vol] 0.40 mg/dL 0.20-1.00 [facility] Comment on above: For patients on eltr ombopag therapy, use of Dimension [place] TBIL is not recommended. Chloride [Moles/Vol] 105 mmol/L 98-107 [facility] Glucose [Mass/Vol] 270 mg/dL 74-106 [facility] Comment on above: Glucose result great er than or equal to 200 mg/dLsuggests DIABETES MELLITUS per A.D.A. criteria. Potassium [Moles/Vol] 5.0 mmol/L 3.5-5.1 [facility] Protein [Mass/Vol] 6.9 g/dL 6.4-8.2 [facility] Sodium [Moles/Vol] 134 mmol/L 136-145 [facility] WBC (Bld) [#/Vol] 5.6 10*3/uL 4.4-11.0 [facility] Blood erythrocytes count (nu mber/volume)Ordered By: Dr. Lujan on 02-26-2023 RBC (Bld) [#/Vol] 4.10 10*6/uL 4.2-5.4 [facility] Blood hemoglobin measurement (mass/volume)Ordered By: Dr. Lujan on 02-26-2023 Hemoglobin (Bld) [Mass/Vol] 12.1 g/dL 12.0-15.0 [facility] Blood platelet mean volumeOr dered By: Dr. Lujan on 02-26-2023 Platelet mean volume (Bld) [Entitic vol] 10.2 fL 6.2-12.0 [facility] Determination of erythrocyte mean corpuscular volume (MCV)Ordered By: Dr. Lujan on 02-26-2023 MCV (RBC) [Entitic vol] 95.9 fL 81-99 [facility] Hematocrit Auto (Bld) [Volum e fraction]Ordered By: Dr. Lujan on 02-26-2023 Hematocrit (Bld) [Volume fraction] 39.3 % 37-47 [facility] Laboratory - Chemistry and C hemistry - challengeOrdered By: Dr. Lujan on 02-26-2023 ALP [Catalytic activity/Vol] 88 U/L 45-117 [facility] ALT [Catalytic activity/Vol] 16 U/L 13-56 [facility] CO2 [Moles/Vol] 26.0 mmol/L 21.0-32.0 [facility] Globulin (S) [Mass/Vol] 3.8 g/dL 2.2-4.2 [facility] Urea nitrogen/Creatinine [Mass ratio] 17.7 mg/mg 10-20 [facility] Laboratory - Hematology and Cell countsOrdered By: Dr. Lujan on 02-26-2023 Erythrocyte distribution width (RBC) [Entitic vol] 49.3 fL 35.1-43.9 [facility] Erythrocyte distribution width (RBC) [Ratio] 14.0 % 11.6-14.6 [facility] MCH (RBC) [Entitic mass] 29.5 pg 27.0-32.0 [facility] MCHC Auto (RBC) [Mass/Vol]Or dered By: Dr. Lujan on 02-26-2023 MCHC (RBC) [Mass/Vol] 30.8 g/dL 32-36 [facility] No Panel InformationOrdered By: Dr. Lujan on 02-26-2023 Estimated GFR (MDRD) Amer 29 mL/min >60 [facility] Comment on above: GFR Calc Estimated GFR (MDRD) Non-Af Amer 24 mL/min >60 [facility] Comment on above: Non- GFR Calc Thyroid Stimulating Hormone (TSH) 2.30 uIU/mL 0.358-3.74 [facility] Vitamin D 25-Hydroxy 54.6 ng/mL [facility] Comment on above: Vitamin D 25(OH) Sta tus Range Deficiency <20 ng/mL (50nmol/L) Insufficiency 20 - 30 ng/mL (50 - 75 nmol/L) Sufficiency 30 - 100 ng/mL (75 - 250 nmol/L) Toxicity >100 ng/mL (>250 nmol/L) No Panel InformationOrdered By: Dr. Huerta on 02-26-2023 Parathyroid Hormone (Intact) 110.4 pg/mL 18.4-80.1 [facility] Platelets bldOrdered By: Dr. Lujan on 02-26-2023 Platelets (Bld) [#/Vol] 217 10*3/uL 150-450 [facility] Serum or plasma albumin lesly urement (mass/volume)Ordered By: Dr. Lujan on 02-26-2023 Albumin [Mass/Vol] 3.1 g/dL 3.2-5.0 [facility] Serum or plasma albumin/glob ulin mass ratioOrdered By: Dr. Lujan on 02-26-2023 Albumin/Globulin [Mass ratio] 0.8 {ratio} 0.9-2.4 [facility] Serum or plasma calcium lesly urement (mass/volume)Ordered By: Dr. Lujan on 02-26-2023 Calcium [Mass/Vol] 8.7 mg/dL 8.5-10.1 [facility] Serum or plasma creatinine m easurement (mass/volume)Ordered By: Dr. Lujan on 02-26-2023 Creatinine [Mass/Vol] 2.20 mg/dL 0.55-1.02 [facility] Comment on above: The validity of the calculated GFR & GFRAA in patients over 70 years has not been determined. Clinical correlation is essential. Serum or plasma urea nitroge n measurement (mass/volume)Ordered By: Dr. Lujan on 02-26-2023 Urea nitrogen [Mass/Vol] 39 mg/dL 7-18 [facility] Thin prep Papanicolaou smear with manual screeningOrdered By: Dr. Lujan on 02-26-2023 Thin prep Papanicolaou smear with manual screening 15 U/L 15-37 [facility] Thin prep Papanicolaou smear with manual screening 3 5-15 [facility] Laboratory - Hematology and Cell countson 01-01-2023 HbA1c (Bld) [Mass fraction] 9.0 % [facility] Absolute lymphocyte counton 10-11-2022 Lymphocytes Auto (Unsp spec) [#/Vol] 2.65 10*3/uL 0.83-4.51 [facility] Work Phone: Basophil percentageon 2021 Amylase [Catalytic activity/Vol] 51 U/L 25-115 [facility] Work Phone: Basophils/100 WBC (Bld) 1.2 % 0-1 [facility] Work Phone: Bilirubin [Mass/Vol] 0.30 mg/dL 0.20-1.00 [facility] Work Phone: Comment on above: For patients on eltr ombopag therapy, use of Dimension [place] TBIL is not recommended. Chloride [Moles/Vol] 101 mmol/L 98-107 [facility] Work Phone: Cholesterol [Mass/Vol] 266 mg/dL <200 [facility] Work Phone: Comment on above: <200 mg/dL Desirable 200-240 mg/dL Borderline >240 mg/dL High Risk Eosinophils/100 WBC (Bld) 8.5 % 0-5 [facility] Work Phone: Glucose [Mass/Vol] 206 mg/dL 74-106 [facility] Work Phone: Comment on above: Glucose result great er than or equal to 200 mg/dLsuggests DIABETES MELLITUS per A.D.A. criteria. Neutrophils (Bld) [#/Vol] 3.7 10*3/uL 2.0-7.7 [facility] Work Phone: Neutrophils/100 WBC (Bld) 49.0 % 47-70 [facility] Work Phone: Potassium [Moles/Vol] 4.2 mmol/L 3.5-5.1 [facility] Work Phone: Protein [Mass/Vol] 6.9 g/dL 6.4-8.2 [facility] Work Phone: Sodium [Moles/Vol] 138 mmol/L 136-145 [facility] Work Phone: Triglyceride [Mass/Vol] 198 mg/dL <199 [facility] Work Phone: Comment on above: The drugs N-Acetylcy steine and Metamizole may falsely depress this assay.Serum Triglycerides Reference Interval Normal <150 mg/dL Borderline high 150 - 199 mg/dL High 200 - 499 mg/dL Very High > or = 500 mg/dL WBC (Bld) [#/Vol] 7.5 10*3/uL 4.4-11.0 [facility] Work Phone: Blood erythrocytes count (nu mber/volume)on 10-11-2022 RBC (Bld) [#/Vol] 4.53 10*6/uL 4.2-5.4 [facility] Work Phone: Blood hemoglobin measurement (mass/volume)on 10-11-2022 Hemoglobin (Bld) [Mass/Vol] 13.4 g/dL 12.0-15.0 [facility] Work Phone: Blood lymphocytes/100 leukoc yteson 10-11-2022 Lymphocytes/100 WBC (Bld) 35.2 % 19-41 [facility] Work Phone: Blood monocytes/100 leukocyt eson 10-11-2022 Monocytes/100 WBC (Bld) 5.8 % 0-10 [facility] Work Phone: Blood platelet mean volumeon 10-11-2022 Platelet mean volume (Bld) [Entitic vol] 10.5 fL 6.2-12.0 [facility] Work Phone: Determination of erythrocyte mean corpuscular volume (MCV)on 10-11-2022 MCV (RBC) [Entitic vol] 96.9 fL 81-99 [facility] Work Phone: Erythrocyte sedimentation ra darek 10-11-2022 ESR (Bld) [Velocity] 38 mm/h 0-30 [facility] Work Phone: Hematocrit Auto (Bld) [Volum e fraction]on 10-11-2022 Hematocrit (Bld) [Volume fraction] 43.9 % 37-47 [facility] Work Phone: INR in Blood by Coagulation assayon 10-11-2022 INR Coag (Bld) [Relative time] 0.9 {INR} [facility] Work Phone: Iron measurement (mass/mass) on 10-11-2022 Iron (Unsp spec) [Mass/Mass] 67 ug/dL 50-170 [facility] Work Phone: Laboratory - Chemistry and C hemistry - challengeon 10-11-2022 ALP [Catalytic activity/Vol] 93 U/L 45-117 [facility] Work Phone: ALT [Catalytic activity/Vol] 11 U/L 13-56 [facility] Work Phone: CO2 [Moles/Vol] 30.0 mmol/L 21.0-32.0 [facility] Work Phone: Globulin (S) [Mass/Vol] 3.8 g/dL 2.2-4.2 [facility] Work Phone: Lipase [Catalytic activity/Vol] 82 U/L 73-393 [facility] Work Phone: Urea nitrogen/Creatinine [Mass ratio] 16.2 mg/mg 10-20 [facility] Work Phone: Laboratory - Coagulationon 1 12-12-2021 aPTT Coag (Bld) [Time] 29.2 s 24.1-36.2 [facility] Work Phone: PT Coag (PPP) [Time] 12.2 s 11.7-14.[address] [facility] Work Phone: Laboratory - Hematology and Cell countson 10-11-2022 Erythrocyte distribution width (RBC) [Entitic vol] 48.3 fL 35.1-43.9 [facility] Work Phone: Erythrocyte distribution width (RBC) [Ratio] 13.4 % 11.6-14.6 [facility] Work Phone: Immature granulocytes/100 WBC (Bld) 0.300 % 0.0-0.9 [facility] Work Phone: Comment on above: IG% - Immature Granu locytes (promyelocytes, myelocytes and metamyelocytes) > 1% indicates that a LEFT SHIFT is Present. MCH (RBC) [Entitic mass] 29.6 pg 27.0-32.0 [facility] Work Phone: Nucleated RBC/100 WBC (Bld) [Ratio] 0 % 0-5 [facility] Work Phone: MCHC Auto (RBC) [Mass/Vol]on 10-11-2022 MCHC (RBC) [Mass/Vol] 30.5 g/dL 32-36 [facility]: No Panel Informationon 10-11 Estimated GFR (MDRD) Amer 27 mL/min >60 [facility] Work Phone: Comment on above: GFR Calc Estimated GFR (MDRD) Non-Af Amer 22 mL/min >60 [facility] Work Phone: Comment on above: Non- GFR Calc Thyroid Stimulating Hormone (TSH) 1.67 uIU/mL 0.358-3.74 [facility] Work Phone: Vitamin D 25-Hydroxy 30.7 ng/mL [facility] Work Phone: Comment on above: Vitamin D 25(OH) Sta tus Range Deficiency <20 ng/mL (50nmol/L) Insufficiency 20 - 30 ng/mL (50 - 75 nmol/L) Sufficiency 30 - 100 ng/mL (75 - 250 nmol/L) Toxicity >100 ng/mL (>250 nmol/L) Platelets bldon 10-11-2022 Platelets (Bld) [#/Vol] 301 10*3/uL 150-450 [facility] Work Phone: Serum or plasma albumin lesly urement (mass/volume)on 10-11-2022 Albumin [Mass/Vol] 3.1 g/dL 3.2-5.0 [facility] Work Phone: Serum or plasma albumin/glob ulin mass ratioon 10-11-2022 Albumin/Globulin [Mass ratio] 0.8 {ratio} 0.9-2.4 [facility] Work Phone: Serum or plasma calcium lesly urement (mass/volume)on 10-11-2022 Calcium [Mass/Vol] 9.2 mg/dL 8.5-10.1 [facility] Work Phone: Serum or plasma cholesterol in HDL measurement (mass/volume)on 10-11-2022 Cholesterol in HDL [Mass/Vol] 64 mg/dL >40 [facility] Work Phone: Comment on above: The drugs N-Acetylcy steine and Metamizole may falsely depress this assay. Reference Range HDL <40 mg/dL Low HDL Cholesterol HDL >or= 60 mg/dL High HDL Cholesterol Serum or plasma cholesterol in VLDL measurement (mass/volume)on 10-11-2022 Cholesterol in VLDL [Mass/Vol] 40 mg/dL 5-40 [facility] Work Phone: Serum or plasma creatinine m easurement (mass/volume)on 10-11-2022 Creatinine [Mass/Vol] 2.35 mg/dL 0.55-1.02 [facility] Work Phone: Comment on above: The validity of the calculated GFR & GFRAA in patients over 70 years has not been determined. Clinical correlation is essential. Serum or plasma ferritin allyn surement (mass/volume)on 10-11-2022 Ferritin [Mass/Vol] 27 ng/mL 8-252 [facility] Work Phone: Serum or plasma low density lipoprotein (LDL) cholesterol measurement (mass/volume)on 10-11-2022 Cholesterol in LDL [Mass/Vol] 162 mg/dL 0-130 [facility] Work Phone: Serum or plasma urea nitroge n measurement (mass/volume)on 10-11-2022 Urea nitrogen [Mass/Vol] 38 mg/dL 7-18 [facility] Work Phone: Thin prep Papanicolaou smear with manual screeningon 10-11-2022 Thin prep Papanicolaou smear with manual screening 8 U/L 15-37 [facility] Work Phone: Thin prep Papanicolaou smear with manual screening 7 5-15 [facility] Work Phone: Laboratory - Hematology and Cell countson 07-04-2022 HbA1c (Bld) [Mass fraction] 7.2 % [facility] Work Phone: NICOTINE+METABOLITES,Son [id number] 156 ng/mL Normal [facility] Comment on above: Performed By: #### H EPFP #### [facility] [address] [place] [address] COTININE 194 ng/mL Normal [facility] Comment on above: Performed By: #### H EPFP #### [facility] [address] [place] [address] NICOTINE 7 ng/mL Normal [facility] Comment on above: Result Comment: Cons istent with use of a nicotine-containing product within 48 hours of specimen collection. Nicotine is metabolized to cotinine and [id number]. INTERPRETIVE INFORMATION: Nicotine and Metabolites, Serum or [...] developed and its performance characteristics determined by [facility]. It has not been cleared or approved by the US Food and Drug Administration. This test was performed in a CLIA certified laboratory and is intended for clinical purposes. Performed By: [facility] [address] [place] [id number] [employer]: Fabrizio Cruz MD, PhD Performed By: #### H EPFP #### [facility] [address] [place] [id number] DRUG-PROFILE 9,BLOOD WITH RE FLEX TO CONFIRMATIONon 05-31-2022 AMPHETAMINES SCREEN Negative Normal Cutoff 20 [facility] Comment on above: Performed By: #### H EPFP #### [facility] [address] [place] [address] BARBITURATES SCREEN Negative Normal Cutoff 50 [facility] Comment on above: Performed By: #### H EPFP #### [facility] [address] [place] [address] BENZODIAZEPINES SCREEN Negative Normal Cutoff 50 [facility] Comment on above: Performed By: #### H EPFP #### [facility] [address] [place] [address] BUPRENORPHINE SCREEN Negative Normal Cutoff 1 [facility] Comment on above: Performed By: #### H EPFP #### [facility] [address] [place] [address] CANNABINOID SCREEN Negative Normal Cutoff 20 [facility] Comment on above: Performed By: #### H EPFP #### [facility] [address] [place] [address] COCAINE SCREEN Negative Normal Cutoff 20 [facility] Comment on above: Performed By: #### H EPFP #### [facility] [address] [place] [address] DRUG SCREEN COMMENT See Note Normal [facility] Comment on above: Result Comment: INTE RPRETIVE [...] developed and its performance characteristics determined by [facility]. It has not been cleared or approved by the US Food and Drug Administration. This test was performed in a CLIA certified laboratory and is intended for clinical purposes. Performed By: [facility] [address] [place] [address] [employer]: Fabrizio Cruz MD, PhD Performed By: #### H EPFP #### [facility] [address] [place] [address] METHADONE SCREEN Negative Normal Cutoff 25 [facility] Comment on above: Performed By: #### H EPFP #### [facility] [address] [place] [address] METHAMPHETAMINES SCREEN Negative Normal Cutoff 20 [facility] Comment on above: Performed By: #### H EPFP #### [facility] [address] [place] [address] OPIATE SCREEN Negative Normal Cutoff 20 [facility] Comment on above: Performed By: #### H EPFP #### [facility] [address] [place] [address] OXYCODONE SCREEN Negative Normal Cutoff 20 [facility] Comment on above: Performed By: #### H EPFP #### [facility] [address] [place] [id number] PCP SCREEN Negative Normal Cutoff 10 [facility] Comment on above: Performed By: #### H EPFP #### [facility] [address] [place] [id number] T-SPOT TBon 05-30-2022 NIL[NEG]CONTROL SPOT COUNT Passed Normal [facility] Comment on above: Performed By: #### H EPFP #### [facility] [address] [place] [address] PANEL A SPOT COUNT 0 Normal [facility] Comment on above: Performed By: #### H EPFP #### [facility] [address] [place] [address] PANEL B SPOT COUNT 2 Normal [facility] Comment on above: Performed By: #### H EPFP #### [facility] [address] [place] [address] POS CONTROL SPOT COUNT Passed Normal [facility] Comment on above: Performed By: #### H EPFP #### [facility] [address] [place] [address] T-SPOT.TB INTERP Negative Normal Normal Value: Negative [facility] Comment on above: Result Comment: A ne [...] Performed By: #### H EPFP #### [place] [address] [place] [address] ABO/RH GROUP TESTon 05-28-20 ABO TYPE O Normal [facility] Comment on above: Performed By: #### H LAS1 #### [facility] [address] [place] [id number] RH TYPE Positive Normal [facility] Comment on above: Performed By: #### H LAS1 #### [place] [address] [place] [id number] AUTOCROSSMATCH, FLOWon 05-28 AUTOCROSSMATCH, FLOW SEE SEPARATE REPORT Normal [facility] Comment on above: Result Comment: Test performed at [facility] Histocompatibility and Immunogenetics Laboratory [facility], [address]th [address] [place] [address] Performed By: #### U SWETHA #### [facility] [address] [place] [address] AUTOCROSSMATCH, FLOW Canceled Normal [facility] Comment on above: Order Comment: TEST AUTOCROSSMATCH, FLOW WAS CANCELLED, 05/28/2022 13:06 Result Comment: Test performed at [facility] Histocompatibility and Immunogenetics Laboratory [facility], [address]th Floor [id number] [place] [address] Performed By: #### H EPFP #### [facility] [address] [facility] [place] [address] Blood Typing (ABO + Rho D)on 05-28-2022 ABO group Nom (Bld) O MG-[facility]- [facility] [employer] Work Phone: Rh immune globulin screen (Bld) [Interp] Positive MG-Transpl ant- [facility] [employer] Work Phone: Blood Urea Nitrogen, Serumon 05-28-2022 Urea nitrogen [Mass/Vol] 47 mg/dL above high threshold 6 - 23 [facility]- [facility] [employer] Work Phone: C PEPTIDEon 05-28-2022 C PEPTIDE 0.1 ng/mL Low 0.7 - 3.9 [facility] Comment on above: Performed By: #### U SWETHA #### [facility] [address] [place] [address] C Peptide, Serumon 2 C peptide [Mass/Vol] 0.1 ng/mL below low threshold 0.7 - 3.9 [facility]-Transplant- [facility] Work Phone: CBCon 05-28-2022 Erythrocyte distribution width (RBC) [Ratio] 13.5 % Normal 11.5 - 14.5 [facility] Comment on above: Performed By: #### U SWETHA #### [facility] [address] [place] [address] Hematocrit (Bld) [Volume fraction] 37.0 % Normal 36.0 - 46.0 [facility] Comment on above: Performed By: #### U SWETHA #### [facility] [address] [place] [address] Hemoglobin (Bld) [Mass/Vol] 11.3 g/dL Low 12.0 - 16.0 [facility] Comment on above: Performed By: #### U SWETHA #### [facility] [address] [place] [address] MCHC (RBC) [Mass/Vol] 30.5 g/dL Low 32.0 - 36.0 [facility] Comment on above: Performed By: #### U SWETHA #### [facility] [address] [place] [address] MCV (RBC) [Entitic vol] 101 fL High 80 - 100 [facility] Comment on above: Performed By: #### U SWETHA #### [facility] [address] [place] [address] NUCLEATED RBC 0.0 /100 WBC Normal 0.0-0.0 [facility] Comment on above: Performed By: #### U SWETHA #### [facility] [address] [place] [address] Platelets (Bld) [#/Vol] 240 10*3/uL Normal 150 - 450 [facility] Comment on above: Performed By: #### U SWETHA #### [facility] [address] [place] [address] RBC 3.66 x10E12/L Low 4.00 - 5.20 [facility] Comment on above: Performed By: #### U SWETHA #### [facility] [address] [place] [address] WBC (Bld) [#/Vol] 9.3 10*3/uL Normal 4.4 - 11.3 [facility] Comment on above: Performed By: #### U SWETHA #### [facility] [address] [place] [address] CMV IGGon 05-28-2022 CMV IGG AB Reactive Abnormal NONREACTIVE [facility] Comment on above: Performed By: #### H LAS1 #### [facility] [address] [place] [address] CMV IgGon 05-28-2022 CMV IgG Reactive Abnormal See Below [facility]- [facility] [employer] Work Phone: Comment on above: SOURCE: Reference Ra nge: NONREACTIVE CREATININEon 05-28-2022 Creatinine [Mass/Vol] 2.19 mg/dL High 0.50 - 1.05 [facility] Comment on above: Performed By: #### H LAS1 #### [facility] [address] [place] [address] GFR/1.73 sq M.predicted among non-blacks MDRD (S/P/Bld) [Vol rate/Area] 25 mL/min/{1.73_m2} Abnormal >90 [facility] Comment on above: Result Comment: CALC ULATIONS OF ESTIMATED GFR ARE PERFORMED USING THE 2020 CKD-EPI STUDY REFIT EQUATION WITHOUT THE RACE VARIABLE FOR THE IDMS-TRACEABLE CREATININE METHODS. https://jasn.asnjournals.org/content/early/ASN.09383 73224 Performed By: #### H LAS1 #### [facility] [address] [place] [address] Creatinine, Serumon 05-28-20 Creatinine [Mass/Vol] 2.19 mg/dL above high threshold See Below [facility]- [facility] Work Phone: Comment on above: Reference Range: 0.5 0 - 1.05 Creatinine, Serum 25 {mL/min/1.73m2} Abnormal >90 [facility]- [facility] Work Phone: Comment on above: CALCULATIONS OF EMILIO MATED GFR ARE PERFORMED USING THE 2020 CKD-EPI STUDY REFIT EQUATION WITHOUT THE RACE VARIABLE FOR THE IDMS-TRACEABLE CREATININE METHODS.https://jasn.asnjournals.org/content/early//A SN.1749153822 EBV PANELon 05-28-2022 VCA IGM ANTIBODY Negative Normal NEGATIVE [facility] Comment on above: Performed By: #### E BVP1 #### [facility] [address] [place] [address] EBV EA-D IGG ANTIBODY Negative Normal NEGATIVE [facility] Comment on above: Performed By: #### E BVP1 #### [facility] [address] [place] [id number] EBV INTERPRETATION SEE BELOW Normal [facility] Comment on above: Result Comment: . EB V INTERPRETATION CHART . VCA-IGG VCA-IGM NA-IGG EA-IGG . PRIMARY ACUTE +/- +/- - +/- LATE ACUTE + +/- +/- +/- RECOVERING + - - + PREVIOUS INFECTION + - +/- - Performed By: #### E BVP1 #### [facility] [address] [place] [address] EBV NA-1 IGG ANTIBODY Positive Abnormal NEGATIVE [facility] Comment on above: Performed By: #### E BVP1 #### [facility] [address] [place] [address] VCA IGG ANTIBODY Positive Abnormal NEGATIVE [facility] Comment on above: Performed By: #### E BVP1 #### [facility] [address] [place] [address] HEMOGLOBIN A1Con 05-28-2022 Glucose [Mass/Vol] 194 mg/dL Normal [facility] Comment on above: Performed By: #### H EPFP #### [facility] [address] [place] [address] HbA1c (Bld) [Mass fraction] 8.4 % Abnormal [facility] Comment on above: Result Comment: Diag nosis of Diabetes-Adults Non-Diabetic: < or = 5.6% Increased risk for developing diabetes: 5.7-6.4% Diagnostic of diabetes: > or = 6.5% . Monitoring of Diabetes Age (y) Therapeutic Goal (%) Adults: >18 <7.0 Pediatrics: 13-18 <7.5 7-12 <8.0 0- 6 7.5-8.5 [place] [employer]. Diabetes Care 33(S1), Nov 2009. Performed By: #### H EPFP #### [facility] [address] [place] [address] HEPATIC FUNCTION PANELon Albumin [Mass/Vol] 3.5 g/dL Normal 3.4 - 5.0 [facility] Comment on above: Performed By: #### H EPFP #### [facility] [address] [place] [address] ALP [Catalytic activity/Vol] 70 U/L Normal 33 - 136 [facility] Comment on above: Performed By: #### H EPFP #### [facility] [address] [place] [address] ALT [Catalytic activity/Vol] 12 U/L Normal 7 - 45 [facility] Comment on above: Result Comment: Lauren ents treated with Sulfasalazine may generate falsely decreased results for ALT. Performed By: #### H EPFP #### [facility] [address] [place] [address] AST [Catalytic activity/Vol] 15 U/L Normal 9 - 39 [facility] Comment on above: Performed By: #### H EPFP #### [facility] [address] [place] [address] Bilirubin [Mass/Vol] 0.3 mg/dL Normal 0.0 - 1.2 [facility] Comment on above: Performed By: #### H EPFP #### [facility] [address] [place] [address] Bilirubin.indirect [Mass/Vol] 0.1 mg/dL Normal 0.0 - 0.3 [facility] Comment on above: Performed By: #### H EPFP #### [facility] [address] [place] [address] Protein [Mass/Vol] 6.0 g/dL Low 6.4 - 8.2 [facility] Comment on above: Performed By: #### H EPFP #### [facility] [address] [place] [id number] HEPATITIS B CORE AB-TOTALon 05-28-2022 HEP. B CORE AB-TOTAL Non-Reactive Normal NONREACTIVE [facility] Comment on above: Result Comment: Resu lts from patients taking biotin supplements or receiving high-dose biotin therapy should be interpreted with caution due to possible interference with this test. Providers may contact their local laboratory for further information. Performed By: #### H BCRT #### [facility] [address] [place] [id number] Lab Specimen Source Normal [facility] Comment on above: Performed By: #### H BCRT #### [facility] [address] [place] [address] Performed By: #### S YPHR #### [facility] [address] [place], [place] [id number] Performed By: #### H LAS1 #### [facility] [address] [place] [address] Performed By: #### U SWETHA #### [facility] [address] [place] [address] HEPATITIS B SURF ABon 2021 HEP B SURF AB <3.1 Normal <10 [facility] Comment on above: Result Comment: INTE RPRETIVE CRITERIA: <10 mIU/mL....NONREACTIVE >=10 mIU/mL...REACTIVE . Biotin interference may cause falsely decreased results. Patients taking a Biotin dose of up to 5 mg/day should refrain from taking Biotin for 24 hours before sample collection. Providers may contact their local laboratory for further information. Performed By: #### H LAS1 #### [facility] [address] [place] [address] HEPATITIS B SURFACE AGon HEP.B SURFACE AG Non-Reactive Normal NONREACTIVE [facility] Comment on above: Result Comment: Biot in interference may cause falsely decreased results. Patients taking a Biotin dose of up to 5 mg/day should refrain from taking Biotin for 24 hours before sample collection. Providers may contact their local laboratory for further information. Performed By: #### U SWETHA #### [facility] [address] [place] [address] HEPATITIS C ABon 05-28-2022 HEPATITIS C AB Non-Reactive Normal NONREACTIVE [facility] Comment on above: Result Comment: Resu lts from patients taking biotin supplements or receiving high-dose biotin therapy should be interpreted with caution due to possible interference with this test. Providers may contact their local laboratory for further information. Performed By: #### H LAS1 #### [facility] [address] [place] [address] HIV 1/2 ANTIGEN/ANTIBODY SCR EEN WITH REFLEX TO CONFIRMATIONon 05-28-2022 HIV 1/2 AG/AB SCREEN Non-Reactive Normal NONREACTIVE [facility] Comment on above: Result Comment: HIV Ag/Ab [...] load). Performed By: #### H LAS1 #### [facility] [address] [place] [address] HIV 1+2 Ab Qn (S) Non-Reactive See Below MG-Tr [facility]- [facility] [place] [facility] Work Phone: Comment on above: SOURCE: [...] CLASS I AB SCREEN,FC SEE COMMENT Normal [facility] Comment on above: Result Comment: HLA CLASS I AB SCREEN,FLOW CYTOMETRY SEE SEPARATE REPORT. Test performed at [facility] Histocompatibility and Immunogenetics Laboratory [facility], 6th Floor [address] [place] [address] Performed By: #### H LAS1 #### [facility] [address] [place] [id number] HLA CLASS I AB SCREEN,FC Canceled Normal [facility] Comment on above: Order Comment: TEST HLA CLASS I AB SCREEN,FC WAS CANCELLED, 05/28/2022 13:06 Performed By: #### H LAS1 #### [facility] [address] [place] [id number] HLA CLASS II AB SCREEN,FCon 05-28-2022 HLA CLASS II AB SCREEN,FC SEE COMMENT Normal [facility] Comment on above: Result Comment: HLA CLASS II AB SCREEN,FLOW CYTOMETRY SEE SEPARATE REPORT. Test performed at [facility] Histocompatibility and Immunogenetics Laboratory [facility], 6th Floor [address] [place] [address] Performed By: #### U SWETHA #### [facility] [address] [place] [id number] HLA CLASS II AB SCREEN,FC Canceled Normal [facility] Comment on above: Order Comment: TEST HLA CLASS II AB SCREEN,FC WAS CANCELLED, 05/28/2022 13:06 Performed By: #### H LAS1 #### [facility] [address] [place] [address] HLA-A,B,C LRon 05-28-2022 HLA-A LOCUS LR TYPE SEE COMMENT Normal [facility] Comment on above: Result Comment: HLA- A LOCUS, LOW RESOLUTION TYPE SEE SEPARATE REPORT. Performed By: #### H EPFP #### [facility] [address] [place] [id number] HLA-B LOCUS LR TYPE SEE COMMENT Normal [facility] Comment on above: Result Comment: HLA- B LOCUS, LOW RESOLUTION TYPE SEE SEPARATE REPORT. Performed By: #### H EPFP #### [facility] [address] [place] [address] HLA-C LOCUS LR TYPE SEE COMMENT Normal [facility] Comment on above: Result Comment: HLA- C LOCUS, LOW RESOLUTION TYPE SEE SEPARATE REPORT. Test performed at [facility] Histocompatibility and Immunogenetics Laboratory [facility], 6th Floor [address] [place] [address] Performed By: #### H EPFP #### [facility] [address] [place] [address] HLA-A LOCUS LR TYPE Canceled Normal [facility] Comment on above: Order Comment: TEST HLA-A,B,C LR WAS CANCELLED, 05/28/2022 13:06 Performed By: #### H EPFP #### [facility] [address] [place] [address] HLA-B LOCUS LR TYPE Canceled Normal [facility] Comment on above: Order Comment: TEST HLA-A,B,C LR WAS CANCELLED, 05/28/2022 13:06 Performed By: #### H EPFP #### [facility] [address] [place] [id number] HLA-C LOCUS LR TYPE Canceled Normal [facility] Comment on above: Order Comment: TEST HLA-A,B,C LR WAS CANCELLED, 05/28/2022 13:06 Performed By: #### H EPFP #### [facility] [address] [place] [id number] HLA-DPB1 HR TYPINGon 022 HLA-DPB1 HR TYPING SEE COMMENT Normal [facility] Comment on above: Result Comment: HLA- DPB1 HIGH RESOLUTION TYPING SEE SEPARATE REPORT. Test performed at [facility] Histocompatibility and Immunogenetics Laboratory [facility], 6th Floor [address] [place] [address] Performed By: #### D PBHT #### [facility] [address] [place] [id number] HLA-DPB1 HR TYPING Canceled Normal [facility] Comment on above: Order Comment: TEST HLA-DPB1 HR TYPING WAS CANCELLED, 05/28/2022 13:06 Performed By: #### D PBHT #### [facility] [address] [place] [id number] HLA-DQB1 HR TYPINGon 022 HLA-DQB1 HR TYPING SEE COMMENT Normal [facility] Comment on above: Result Comment: HLA- DQB1 HIGH RESOLUTION TYPING SEE SEPARATE REPORT. Test performed at [facility] Histocompatibility and Immunogenetics Laboratory [facility], 6th Floor [address] [place] [address] Performed By: #### D QBHT #### [facility] [address] [place] [id number] HLA-DQB1 HR TYPING Canceled Normal [facility] Comment on above: Order Comment: TEST HLA-DQB1 HR TYPING WAS CANCELLED, 05/28/2022 13:06 Performed By: #### H EPFP #### [facility] [address] [place] [id number] HLA-DRB1/3/4/5 AND DQB1 LR T YPINGon 05-28-2022 HLA-DRB1/3/4/5 & DQB1 LR TYPING SEE COMMENT Normal [facility] Comment on above: Result Comment: HLA- DRB1/3/4/5 AND DQB1 LOW RESOLUTION TYPING SEE SEPARATE REPORT. Test performed at [facility] Histocompatibility and Immunogenetics Laboratory [facility], 6th Floor [address] [place] [address] Performed By: #### H EPFP #### [facility] [address] [place] [id number] HLA-DRB1/3/4/5 & DQB1 LR TYPING Canceled Normal [facility] Comment on above: Order Comment: TEST HLA-DRB1/3/4/5 AND DQB1 LR TYPING WAS CANCELLED, 05/28/2022 13:06 Performed By: #### H EPFP #### [facility] [address] [place] [address] Hemoglobin A1Con 05-28-2022 Glucose [Mass/Vol] 194 mg/dL MG-Tra [facility] Work Phone: HbA1c (Bld) [Mass fraction] 8.4 % Abnormal MG-Transplant- [facility] Work Phone: Comment on above: Diagnosis of Diabete s-Adults Non-Diabetic: < or = 5.6% Increased risk for developing diabetes: 5.7-6.4% Diagnostic of diabetes: > or = 6.5%. Monitoring of Diabetes Age (y) Therapeutic Goal (%) Adults: >18 <7.0 Pediatrics: 13-18 <7.5 7-12 <8.0 0- 6 7.5-8.5 [employer]. Diabetes Care 33(S1), Nov 2009. Hepatic Function Panelon Albumin BCP dye [Mass/Vol] 3.5 g/dL 3.4 - 5.0 [facility] Work Phone: ALP [Catalytic activity/Vol] 70 U/L 33 - 136 [facility]- [facility] Work Phone: ALT With P-5'-P [Catalytic activity/Vol] 12 U/L 7 - 45 [facility]- [facility] Work Phone: Comment on above: Patients treated wit h Sulfasalazine may generate falsely decreased results for ALT. AST With P-5'-P [Catalytic activity/Vol] 15 U/L 9 - 39 [facility]- [facility] Work Phone: Bilirubin [Mass/Vol] 0.3 mg/dL 0.0 - 1.2 MG-T ransplant- [facility] Work Phone: Bilirubin.direct [Mass/Vol] 0.1 mg/dL 0.0 - 0.3 [facility]- [facility] Work Phone: Protein [Mass/Vol] 6.0 g/dL below low threshold 6.4 - 8.2 [facility]- [facility] [facility] Work Phone: Hepatitis B Core Antibody, T otalon 05-28-2022 Hepatitis B Core Antibody, Total Non-Reactive See Below [facility]- [facility] [facility] Work Phone: Comment on above: SOURCE: Reference [...] surface Ag IA Ql <3.1 <10 [facility] Work Phone: Comment on above: [...] Screen Ql Negative Cutoff 20 MG -Transplant- [facility] Work Phone: Barbiturates Screen Ql Negative Cutoff 50 [facility] Work Phone: Benzodiazepines Screen Ql Negative Cutoff 50 [facility]-Transplant- [facility] Work Phone: Cannabinoids Screen Ql Negative Cutoff 20 [facility] Work Phone: Cocaine Screen Ql Negative Cutoff 20 [facility] Work Phone: Methadone Screen Ql Negative Cutoff 25 [facility] Work Phone: Methamphetamine Ql Negative Cutoff 20 [facility] Work Phone: Opiates Screen Ql Negative Cutoff 20 [facility] Work Phone: oxyCODONE Ql Negative Cutoff 20 [facility] Work Phone: Phencyclidine Screen Ql Negative Cutoff 10 [facility] Work Phone: Laboratory - HLA antigenson 05-28-2022 HLA-A locus Nom (Bld/Tiss) SEE COMMENT [facility] [place] [address] Work Phone: Comment on above: HLA-A LOCUS, LOW RES OLUTION TYPE SEE SEPARATE REPORT. HLA-B locus Nom (Bld/Tiss) SEE COMMENT [facility] [place] [address] Work Phone: Comment on above: HLA-B LOCUS, LOW RES OLUTION TYPE SEE SEPARATE REPORT. HLA-C locus Nom (Bld/Tiss) SEE COMMENT [facility] [place] [facility]99 Work Phone: Comment on above: HLA-C LOCUS, LOW RES OLUTION TYPE SEE SEPARATE REPORT.Test performed at [facility] Histocompatibility and Immunogenetics Laboratory [facility], [address]th Floor [id number] [place] [id number] HLA-DP2 Ql (Bld/Tiss) SEE COMMENT [facility] [place] [address] Work Phone: Comment on above: HLA-DPB1 HIGH RESOLU TION TYPING SEE SEPARATE REPORT.Test performed at [facility] Histocompatibility and Immunogenetics Laboratory [facility], 6th Floor [address] [place] [address] HLA-DQB1 High resolution Nom (Bld/Tiss) SEE COMMENT [facility] [place] [address] Work Phone: Comment on above: HLA-DQB1 HIGH RESOLU TION TYPING SEE SEPARATE REPORT.Test performed at [facility] Histocompatibility and Immunogenetics Laboratory [facility], 6th Floor [address] [place] [address] HLA-DR+DQ Nom (Bld/Tiss) SEE COMMENT [facility] [place] [address] Work Phone: Comment on above: HLA-DRB1/3/4/5 & DQB 1 LOW RESOLUTION TYPING SEE SEPARATE REPORT.Test performed at [facility] Histocompatibility and Immunogenetics Laboratory [facility], 6th Floor [address] [place] [address] HLA-A locus Nom (Bld/Tiss) [facility]anceled [facility] 1800 Work Phone: HLA-B locus Nom (Bld/Tiss) Canceled [facility]- [facility] [place] 1799 Work Phone: HLA-C locus Nom (Bld/Tiss) Canceled [facility]- [facility] [place] 1799 Work Phone: HLA-DP2 Ql (Bld/Tiss) Canceled [facility]- Transplant- [facility] [place] 1799 Work Phone: HLA-DQB1 High resolution Nom (Bld/Tiss) Canceled [facility]- [facility] [place] 1799 Work Phone: HLA-DR+DQ Nom (Bld/Tiss) Canceled [facility]- [facility] [place] 1799 Work Phone: Laboratory - Hematology and Cell countson 05-28-2022 Erythrocyte distribution width (RBC) [Ratio] 13.5 % See Below [facility]- [facility] [place] [address]99 Work Phone: Comment on above: Reference Range: 11. 5 - 14.5 Hematocrit (Bld) [Volume fraction] 37.0 % See Below [facility]- [facility] [place] [facility]99 Work Phone: Comment on above: Reference Range: 36. 0 - 46.0 Hemoglobin (Bld) [Mass/Vol] 11.3 g/dL below low threshold See Below [facility]- [facility] [place] [address] Work Phone: Comment on above: Reference Range: 12. 0 - 16.0 MCHC (RBC) [Mass/Vol] 30.5 g/dL below low threshold See Below [facility]- [facility] [place] 1799 Work Phone: Comment on above: Reference Range: 32. 0 - 36.0 MCV (RBC) [Entitic vol] 101 fL above high threshold 80 - 100 [facility]- [facility] [place] 1799 Work Phone: Platelets (Bld) [#/Vol] 240 10*3/uL 150 - 450 [facility]- [facility] [place] 1800 Work Phone: RBC (Bld) [#/Vol] 3.66 {x10E12/L} below low threshold See Below [facility] Work Phone: Comment on above: Reference Range: 4.0 0 - 5.20 WBC (Bld) [#/Vol] 9.3 10*3/uL 4.4 - 11.3 [facility]Tra ns[facility]- [facility] Work Phone: Laboratory - Microbiology an d Antimicrobial susceptibilityon 05-28-2022 EBV capsid IgG IA Qn (S) Positive Abnormal NEGATIVE [facility]- [facility] [place] Work Phone: EBV capsid IgM IA Qn (S) Negative NEGATIVE [facility]- [facility] [place] [address] Work Phone: EBV early IgM IA Qn (S) Negative NEGATIVE [facility]- [facility] [place] Work Phone: EBV nuclear IgG IA Qn (S) Positive Abnormal NEGATIVE [facility]- [facility] Work Phone: Nicotine+Metabolites, Serumo n 05-28-2022 Cotinine [Mass/Vol] 194 ng/mL -[facility] Work Phone: Nicotine [Mass/Vol] 7 ng/mL -[facility] Work Phone: Comment on above: Consistent with use of a nicotine-containing product [id number] hours of specimen collection. Nicotine is metabolizedto cotinine and 5-SD-hyzdbscg.INTERPRETIVE INFORMATION: Nicotine and Metabolites, Serum or Plasma, [...] developed and its performance characteristics determined by [facility]. It has not been cleared or approved by the US Food and Drug Administration. This test was performed in a CLIA certified laboratory and is intended for clinical purposes.Performed By: [facility] [place] [id number] Director: Fabrizio Cruz MD, PhD [id number] [Mass/Vol] 156 ng/mL [facility]-Transplant- [facility] Work Phone: No Panel Informationon 05-28 SEE COMMENT -Transplant - [facility] [place] [address] Work Phone: Comment on above: HLA CLASS I AB SCREE N,FLOW CYTOMETRY SEE SEPARATE REPORT.Test performed at [facility] Histocompatibility and Immunogenetics Laboratory [facility], [address]th Floor [address] [place] [address] HLA CLASS II AB SCRE EN,FLOW CYTOMETRY SEE SEPARATE REPORT.Test performed at [facility] Histocompatibility and Immunogenetics Laboratory [facility], 6th Floor [id number] [place] [address] SEE SEPARATE REPORT -Tr ansplant- [facility] [place] [address] Work Phone: Comment on above: Test performed at [facility] Histocompatibility and Immunogenetics Laboratory [facility], 6th Floor [address] [place] [address] Annotation comment [Interpretation] Narrative See Note [facility] Work Phone: Comment on above: INTERPRETIVE INFORMA [...] developed and its performance characteristics determined by [facility]. It has not been cleared or approved by the US Food and Drug Administration. This test was performed in a CLIA certified laboratory and is intended for clinical purposes.Performed By: [facility] [place] [id number] Director: Fabrizio Cruz MD, PhD 0.0 {/100_WBC} 0.0-0.0 [facility]pl [facility]- [facility] Work Phone: SEE BELOW [facility] Work Phone: Comment on above: . EBV INTERPRETATION CHART. VCA-IGG VCA-IGM NA-IGG EA-IGG. PRIMARY ACUTE +/- +/- - +/-LATE ACUTE + +/- +/- +/-RECOVERING + - - +PREVIOUS INFECTION + - +/- - Canceled [facility] Work Phone: Comment on above: Test performed at [facility] Histocompatibility and Immunogenetics Laboratory [facility], [address]th Floor [address] [place] [address] Office VIsit (Pre-Transplant Surgery)on 05-28-2022 Follow-up visit Diagnosis/Problems Assessed Pre-transplant evaluation for kidney transplant (V72.83) (Z01.818) History of end stage renal disease (V13.09) (Z87.448) History of diabetes mellitus (V12.29) (Z86.39) History of chronic obstructive lung disease (V12.69) (Z87.09) History of coronary artery disease (V12.59) (Z86.79) History of Appendectomy History of Hysterectomy Current smoker (305.1) (F17.200) Has access to [employer] and [employer] technologies Health insurance coverage Living Situation: Supportive [...] concept of Centers for Disease Control and [facility] health services high-risk donors and a [...] Bird Lujan. Referral: Dr. Christy Huerta (tel: [phone] fax: [phone]). I am seeing SANDY DENG at the referring provider's request for surgical suitability for renal transplant candidate listing at [facility] [place]. History of Present Illness Comments: Ms. SANDY [...] [Mass/Vol] 5.3 mg/dL High 2.5 - 4.9 [facility] Comment on above: Result Comment: The performance characteristics of phosphorus testing in heparinized plasma have been validated by the individual laboratory site where testing is performed. Testing on heparinized plasma is not approved by the FDA; however, such approval is not necessary. Performed By: #### H LAS1 #### [facility] [address] [place] [address] Phosphorus, Serumon 05-28-20 Phosphate [Mass/Vol] 5.3 mg/dL above high threshold 2.5 - 4.9 [facility]- [facility] [place] [address] Work Phone: Comment on above: The performance armond acteristics of phosphorus testing in heparinized plasma have been validated by the individual laboratory site where testing is performed. Testing on heparinized plasma is not approved by the FDA; however, such approval is not necessary. SYPHILIS SCREENING WITH REFL EXon 05-28-2022 SYPHILIS TOTAL AB Non-Reactive Normal NONREACTIVE [facility] Comment on above: Result Comment: No s ignificant level of Treponema pallidum antibody detected. Repeat testing in 2 to 4 weeks may be considered if early infection or incubating syphilis infection is suspected. Performed By: #### S YPHR #### [facility] [address] [place], [place] [id number] T. pallidum IgG+IgM IA Ql (S) Non-Reactive See Below [facility]- [facility] [place] [employer] Work Phone: Comment on above: SOURCE: Reference Ra nge: NONREACTIVENo significant level of Treponema pallidum antibody detected. Repeat testing in 2 to 4 weeks may be considered if early infection or incubating syphilis infection is suspected. T-SPOT. TBon 05-28-2022 T-SPOT. TB Passed MG-Transplant- [facility] Work Phone: T-SPOT. TB 2 1 [facility] Work Phone: T-SPOT. TB 0 1 [facility] Work Phone: Tobacco Screening.on 022 Fall risk assessment a) No falls within the last year [facility]- [facility] [place] [address] Work Phone: Tobacco use status CPHS a) Yes [facility]- [facility] [place] Work Phone: Tobacco Screening. Yes MG-Tra nsplant- [facility] [place] Work Phone: UA MICROSCOPICon 05-28-2022 Mucus Ql (Urine sed) 1+ /LPF Normal [facility] Comment on above: Performed By: #### U SWETHA #### [facility] [address] [place] [address] RBC 2 /HPF Normal 0-5 [facility] Comment on above: Performed By: #### U SWETHA #### [facility] [address] [place] [address] SQUAMOUS EPITH. CELLS 3 /HPF Normal [facility] Comment on above: Performed By: #### U SWETHA #### [facility] [address] [place] [address] WBC 12 /HPF Abnormal 0-5 [facility] Comment on above: Performed By: #### U SWETHA #### [facility] [address] [place] [address] UREA NITROGENon 05-28-2022 Urea nitrogen [Mass/Vol] 47 mg/dL High 6 - 23 [facility] Comment on above: Performed By: #### U SWETHA #### [facility] [address] [place] [address] URINALYSISon 05-28-2022 Appearance (U) CLEAR Normal CLEAR [facility] Comment on above: Performed By: #### H LAS1 #### [facility] [address] [place] [address] Bilirubin Ql (U) Negative Normal NEGATIVE [facility] Comment on above: Performed By: #### H LAS1 #### [facility] [address] [place] [address] Color (U) YELLOW Normal STRAW,YELLOW [facility] Comment on above: Performed By: #### H LAS1 #### [facility] [address] [place] [address] Glucose Ql (U) Negative Normal NEGATIVE [facility] Comment on above: Performed By: #### H LAS1 #### [facility] [address] [place] [address] Hemoglobin Ql (U) Negative Normal NEGATIVE [facility] Comment on above: Performed By: #### H LAS1 #### [facility] [address] [place] [address] Ketones Ql (U) Negative Normal NEGATIVE [facility] Comment on above: Performed By: #### H LAS1 #### [facility] [address] [place] [address] Leukocyte esterase Test strip Ql (U) SMALL (1+) Abnormal NEGATIVE [facility] Comment on above: Performed By: #### H LAS1 #### [facility] [address] [place] [address] Nitrite Ql (U) Negative Normal NEGATIVE [facility] Comment on above: Performed By: #### H LAS1 #### [facility] [address] [place] [address] pH (U) 5.0 [pH] Normal 5.0 - 8.0 [facility] Comment on above: Performed By: #### H LAS1 #### [facility] [address] [place] [address] Protein Ql (U) 100 (2+) Abnormal NEGATIVE [facility] Comment on above: Performed By: #### H LAS1 #### [facility] [address] [place] [address] Specific gravity (U) [Rel density] 1.016 Normal 1.005 - 1.035 [facility] Comment on above: Performed By: #### H LAS1 #### [facility] [address] [place] [address] Urobilinogen (U) [Mass/Vol] mg/dL Normal 0.0 - 1.9 [facility] Comment on above: Performed By: #### H LAS1 #### [facility] [address] [place] [address] Urinalysison 05-28-2022 Color (U) YELLOW See Below [facility]Transplant- [facility] Work Phone: Comment on above: Reference Range: STR AW,YELLOW Glucose Ql (U) Negative NEGATIVE [facility]-Transpl ant- [facility] Work Phone: Ketones Ql (U) Negative NEGATIVE [facility]-Transpl ant- [facility] Work Phone: Leukocyte esterase Test strip Ql (U) SMALL (1+) Abnormal NEGATIVE [facility]- [facility] Work Phone: pH (U) 5.0 [pH] 5.0 - 8.0 [facility]- [facility] Work Phone: Protein (U) [Mass/Vol] 100 (2+) Abnormal NEGATIVE [facility] -[facility]- [facility] Work Phone: RBC (U) [#/Vol] Negative NEGATIVE MG-Transp lant- [facility] Work Phone: Specific gravity (U) [Rel density] 1.016 1 See Below [facility]-Transplant- [facility] [place] [employer] Work Phone: Comment on above: Reference Range: 1.0 05 - 1.035 Urinalysis Negative NEGATIVE [facility]- [facility] Work Phone: Comment on above: Reference Range: [...] test. Urinalysis <2.0 0.0 - 1.9 [facility]- [facility] Work Phone: Urinalysis CLEAR CLEAR [facility]- [facility] Work Phone: Urinalysis, Microscopicon Urinalysis, Microscopic 1+ [facility]- [facility] Work Phone: Urinalysis, Microscopic 3 {/HPF} [facility]- [facility] Work Phone: Urinalysis, Microscopic 2 {/HPF} 0-5 [facility]- [facility] Work Phone: Urinalysis, Microscopic 12 {/HPF} Abnormal 0-5 [facility]- [facility] Work Phone: VARICELLA ZOSTER IGG ABon VARICELLA ZOSTER IGG AB Positive Normal NEGATIVE [facility] Comment on above: Result Comment: INTE RPRETATIVE [...] assays. Performed By: #### H LAS1 #### [facility] [address] [place] [address] Varicella Zoster IgG Antibod yon 05-28-2022 VZV IgG IA Ql (S) Positive NEGATIVE MG-Mora splant- [facility] Work Phone: Comment on above: INTERPRETATIVE [...] percentageon 2021 Basophil percentage 3.2 mg/dL 2.5-4.9 [facility] Work Phone: Chloride [Moles/Vol] 104 mmol/L 98-[address] [facility] Work Phone: Glucose [Mass/Vol] 92 mg/dL 74-106 [facility] Work Phone: Potassium [Moles/Vol] 4.3 mmol/L 3.5-5.[address] [facility] Work Phone: Sodium [Moles/Vol] 137 mmol/L 136-145 [facility] Work Phone: WBC (Bld) [#/Vol] 9.6 10*3/uL 4.4-11.0 [facility] Work Phone: Blood erythrocytes count (nu mber/volume)on 05-02-2022 RBC (Bld) [#/Vol] 4.06 10*6/uL 4.2-5.4 [facility] Work Phone: Blood hemoglobin measurement (mass/volume)on 05-02-2022 Hemoglobin (Bld) [Mass/Vol] 12.1 g/dL 12.0-15.0 [facility] Work Phone: Blood platelet mean volumeon 05-02-2022 Platelet mean volume (Bld) [Entitic vol] 9.5 fL 6.2-12.0 [facility] Work Phone: Determination of erythrocyte mean corpuscular volume (MCV)on 05-02-2022 MCV (RBC) [Entitic vol] 95.3 fL 81-99 [facility] Work Phone: Hematocrit Auto (Bld) [Volum e fraction]on 05-02-2022 Hematocrit (Bld) [Volume fraction] 38.7 % 37-47 [facility] Work Phone: Laboratory - Chemistry and C hemistry - challengeon 05-02-2022 CO2 [Moles/Vol] 29.0 mmol/L 21.0-32.0 [facility] Work Phone: Urea nitrogen/Creatinine [Mass ratio] 21.2 mg/mg 10-20 [facility] Work Phone: Laboratory - Hematology and Cell countson 05-02-2022 Erythrocyte distribution width (RBC) [Entitic vol] 46.5 fL 35.1-43.9 [facility] Work Phone: Erythrocyte distribution width (RBC) [Ratio] 13.2 % 11.6-14.6 [facility] Work Phone: MCH (RBC) [Entitic mass] 29.8 pg 27.0-32.0 [facility] Work Phone: MCHC Auto (RBC) [Mass/Vol]on 05-02-2022 MCHC (RBC) [Mass/Vol] 31.3 g/dL 32-36 [facility] Work Phone: No Panel Informationon 05-02 Estimated GFR (MDRD) Amer 35 mL/min >60 [facility] Work Phone: Comment on above: GFR Calc Estimated GFR (MDRD) Non-Af Amer 29 mL/min >60 [facility] Work Phone: Comment on above: Non- GFR Calc Parathyroid Hormone (Intact) 40.1 pg/mL 18.4-80.1 [facility] Work Phone: Platelets bldon 05-02-2022 Platelets (Bld) [#/Vol] 268 10*3/uL 150-450 [facility] Work Phone: Serum or plasma albumin lesly urement (mass/volume)on 05-02-2022 Albumin [Mass/Vol] 3.4 g/dL 3.2-5.0 [facility] Work Phone: Serum or plasma calcium lesly urement (mass/volume)on 05-02-2022 Calcium [Mass/Vol] 9.7 mg/dL 8.5-10.1 [facility] Work Phone: Serum or plasma creatinine m easurement (mass/volume)on 05-02-2022 Creatinine [Mass/Vol] 1.89 mg/dL 0.55-1.02 [facility] Work Phone: Comment on above: The validity of the calculated GFR & GFRAA in patients over 70 years has not been determined. Clinical correlation is essential. Serum or plasma urea nitroge n measurement (mass/volume)on 05-02-2022 Urea nitrogen [Mass/Vol] 40 mg/dL 7-18 [facility] Work Phone: Urine creatinine measurement (mass/volume)on 05-02-2022 Creatinine (U) [Mass/Vol] 72.60 mg/dL NO RANGE EST. [facility] Work Phone: Urine protein measurement (m ass/volume)on 05-02-2022 Protein (U) [Mass/Vol] 114.6 mg/dL 0.0-11.[address] [facility] Work Phone: Urine protein/creatinine mas s ratioon 05-02-2022 Protein/Creatinine (U) [Mass ratio] 1579 mg/g CRE 0-200 [facility] Work Phone: Absolute lymphocyte counton 02-08-2022 Lymphocytes Auto (Unsp spec) [#/Vol] 1.86 10*3/uL 0.83-4.51 [facility] Work Phone: Basophil percentageon 2021 Amylase [Catalytic activity/Vol] 57 U/L 25-115 [facility] Work Phone: Basophils/100 WBC (Bld) 0.7 % 0-1 [facility] Work Phone: Bilirubin [Mass/Vol] 0.30 mg/dL 0.20-1.00 [facility] Work Phone: Comment on above: For patients on eltr ombopag therapy, use of Dimension [place] TBIL is not recommended. Chloride [Moles/Vol] 106 mmol/L 98-107 [facility] Work Phone: Eosinophils/100 WBC (Bld) 5.6 % 0-5 [facility] Work Phone: Glucose [Mass/Vol] 180 mg/dL 74-106 [facility] Work Phone: Comment on above: Fasting Glucose resu lt greater than or equal to 126 mg/dL suggests DIABETES MELLITUS per A.D.A. criteria. Neutrophils (Bld) [#/Vol] 5.1 10*3/uL 2.0-7.7 [facility] Work Phone: Neutrophils/100 WBC (Bld) 63.4 % 47-70 [facility] Work Phone: Potassium [Moles/Vol] 5.1 mmol/L 3.5-5.1 [facility] Work Phone: Protein [Mass/Vol] 7.7 g/dL 6.4-8.2 [facility] [facility] Work Phone: Sodium [Moles/Vol] 136 mmol/L 136-145 [facility] Work Phone: WBC (Bld) [#/Vol] 8.1 10*3/uL 4.4-11.0 [facility] Work Phone: Blood erythrocytes count (nu mber/volume)on 02-08-2022 RBC (Bld) [#/Vol] 4.10 10*6/uL 4.2-5.4 [facility] Work Phone: Blood hemoglobin measurement (mass/volume)on 02-08-2022 Hemoglobin (Bld) [Mass/Vol] 11.9 g/dL 12.0-15.0 [facility] Work Phone: Blood lymphocytes/100 leukoc yteson 02-08-2022 Lymphocytes/100 WBC (Bld) 23.0 % 19-41 [facility] Work Phone: Blood monocytes/100 leukocyt eson 02-08-2022 Monocytes/100 WBC (Bld) 6.9 % 0-10 [facility] Work Phone: Blood platelet mean volumeon 02-08-2022 Platelet mean volume (Bld) [Entitic vol] 9.9 fL 6.2-12.0 [facility] Work Phone: Determination of erythrocyte mean corpuscular volume (MCV)on 02-08-2022 MCV (RBC) [Entitic vol] 94.1 fL 81-99 [facility] Work Phone: Hematocrit Auto (Bld) [Volum e fraction]on 02-08-2022 Hematocrit (Bld) [Volume fraction] 38.6 % 37-47 [facility] Work Phone: Laboratory - Chemistry and C hemistry - challengeon 02-08-2022 ALP [Catalytic activity/Vol] 87 U/L 45-117 [facility] Work Phone: ALT [Catalytic activity/Vol] 16 U/L 13-56 [facility] Work Phone: CO2 [Moles/Vol] 27.0 mmol/L 21.0-32.0 [facility] Work Phone: Globulin (S) [Mass/Vol] 4.3 g/dL 2.2-4.2 [facility] Work Phone: Lipase [Catalytic activity/Vol] 55 U/L 73-393 [facility] Work Phone: Urea nitrogen/Creatinine [Mass ratio] 20.6 mg/mg 10-20 [facility] Work Phone: Laboratory - Hematology and Cell countson 02-08-2022 Erythrocyte distribution width (RBC) [Entitic vol] 46.5 fL 35.1-43.9 [facility] Work Phone: Erythrocyte distribution width (RBC) [Ratio] 13.3 % 11.6-14.6 [facility] Work Phone: Immature granulocytes/100 WBC (Bld) 0.400 % 0.0-0.9 [facility] Work Phone: Comment on above: IG% - Immature Granu locytes (promyelocytes, myelocytes and metamyelocytes) > 1% indicates that a LEFT SHIFT is Present. MCH (RBC) [Entitic mass] 29.0 pg 27.0-32.0 [facility] Work Phone: Nucleated RBC/100 WBC (Bld) [Ratio] 0 % 0-5 [facility] Work Phone: MCHC Auto (RBC) [Mass/Vol]on 02-08-2022 MCHC (RBC) [Mass/Vol] 30.8 g/dL 32-36 [facility] Work Phone: No Panel Informationon 02-08 Estimated GFR (MDRD) Amer 28 mL/min >60 [facility] Work Phone: Comment on above: GFR Calc Estimated GFR (MDRD) Non-Af Amer 23 mL/min >60 [facility] Work Phone: Comment on above: Non- GFR Calc Platelets bldon 02-08-2022 Platelets (Bld) [#/Vol] 235 10*3/uL 150-450 [facility] Work Phone: Serum or plasma albumin lesly urement (mass/volume)on 02-08-2022 Albumin [Mass/Vol] 3.4 g/dL 3.2-5.0 [facility] Work Phone: Serum or plasma albumin/glob ulin mass ratioon 02-08-2022 Albumin/Globulin [Mass ratio] 0.8 {ratio} 0.9-2.4 [facility] Work Phone: Serum or plasma calcium lesly urement (mass/volume)on 02-08-2022 Calcium [Mass/Vol] 9.6 mg/dL 8.5-10.1 [facility] Work Phone: Serum or plasma creatinine m easurement (mass/volume)on 02-08-2022 Creatinine [Mass/Vol] 2.28 mg/dL 0.55-1.02 [facility] Work Phone: Comment on above: The validity of the calculated GFR & GFRAA in patients over 70 years has not been determined. Clinical correlation is essential. Serum or plasma urea nitroge n measurement (mass/volume)on 02-08-2022 Urea nitrogen [Mass/Vol] 47 mg/dL 7-18 [facility] Work Phone: Thin prep Papanicolaou smear with manual screeningon 02-08-2022 Thin prep Papanicolaou smear with manual screening 16 U/L 15-37 [facility] Work Phone: Thin prep Papanicolaou smear with manual screening 3 5-15 [facility] Work Phone: Laboratory - Hematology and Cell countson 01-10-2022 HbA1c (Bld) [Mass fraction] 7.9 % [facility] Work Phone: Basophil percentageon 2021 Basophil percentage 4.8 mg/dL 2.5-4.9 [facility] Work Phone: Chloride [Moles/Vol] 108 mmol/L 98-107 [facility] Work Phone: Glucose [Mass/Vol] 204 mg/dL 74-106 [facility] Work Phone: Comment on above: Glucose result great er than or equal to 200 mg/dLsuggests DIABETES MELLITUS per A.D.A. criteria. Potassium [Moles/Vol] 4.7 mmol/L 3.5-5.1 [facility] Work Phone: Sodium [Moles/Vol] 138 mmol/L 136-145 [facility] Work Phone: WBC (Bld) [#/Vol] 7.8 10*3/uL 4.4-11.0 [facility] Work Phone: Blood erythrocytes count (nu mber/volume)on 12-24-2021 RBC (Bld) [#/Vol] 3.67 10*6/uL 4.2-5.4 [facility] Work Phone: Blood hemoglobin measurement (mass/volume)on 12-24-2021 Hemoglobin (Bld) [Mass/Vol] 10.9 g/dL 12.0-15.0 [facility] Work Phone: Blood platelet mean volumeon 12-24-2021 Platelet mean volume (Bld) [Entitic vol] 9.8 fL 6.2-12.0 [facility] Work Phone: Determination of erythrocyte mean corpuscular volume (MCV)on 12-24-2021 MCV (RBC) [Entitic vol] 92.1 fL 81-99 [facility] Work Phone: Hematocrit Auto (Bld) [Volum e fraction]on 12-24-2021 Hematocrit (Bld) [Volume fraction] 33.8 % 37-47 [facility] Work Phone: Laboratory - Chemistry and C hemistry - challengeon 12-24-2021 CO2 [Moles/Vol] 25.0 mmol/L 21.0-32.0 [facility] Work Phone: Urea nitrogen/Creatinine [Mass ratio] 23.2 mg/mg 10-20 [facility] Work Phone: Laboratory - Hematology and Cell countson 12-24-2021 Erythrocyte distribution width (RBC) [Entitic vol] 47.2 fL 35.1-43.9 [facility] Work Phone: Erythrocyte distribution width (RBC) [Ratio] 14.0 % 11.6-14.6 [facility] Work Phone: MCH (RBC) [Entitic mass] 29.7 pg 27.0-32.0 [facility] Work Phone: MCHC Auto (RBC) [Mass/Vol]on 12-24-2021 MCHC (RBC) [Mass/Vol] 32.2 g/dL 32-36 [facility] Work Phone: No Panel Informationon 12-24 Estimated GFR (MDRD) Amer 36 mL/min >60 [facility] Work Phone: Comment on above: GFR Calc Estimated GFR (MDRD) Non-Af Amer 29 mL/min >60 [facility] Work Phone: Comment on above: Non- GFR Calc Parathyroid Hormone (Intact) 55.7 pg/mL 18.4-80.1 [facility] Work Phone: Vitamin D 25-Hydroxy 45.6 ng/mL [facility] Work Phone: Comment on above: Vitamin D 25(OH) Sta tus Range Deficiency <20 ng/mL (50nmol/L) Insufficiency 20 - 30 ng/mL (50 - 75 nmol/L) Sufficiency 30 - 100 ng/mL (75 - 250 nmol/L) Toxicity >100 ng/mL (>250 nmol/L) Platelets bldon 12-24-2021 Platelets (Bld) [#/Vol] 225 10*3/uL 150-450 [facility] Work Phone: Serum or plasma albumin lesly urement (mass/volume)on 12-24-2021 Albumin [Mass/Vol] 3.2 g/dL 3.2-5.0 [facility] Work Phone: Serum or plasma calcium lesly urement (mass/volume)on 12-24-2021 Calcium [Mass/Vol] 8.9 mg/dL 8.5-10.1 [facility] Work Phone: Serum or plasma creatinine m easurement (mass/volume)on 12-24-2021 Creatinine [Mass/Vol] 1.85 mg/dL 0.55-1.02 [facility] Work Phone: Comment on above: The validity of the calculated GFR & GFRAA in patients over 70 years has not been determined. Clinical correlation is essential. Serum or plasma urea nitroge n measurement (mass/volume)on 12-24-2021 Urea nitrogen [Mass/Vol] 43 mg/dL 7-18 [facility] Work Phone: Basophil percentageon 2021 Bilirubin [Mass/Vol] 0.30 mg/dL 0.20-1.00 [facility] Work Phone: Comment on above: For patients on eltr ombopag therapy, use of Dimension [place] TBIL is not recommended. Chloride [Moles/Vol] 104 mmol/L 98-107 [facility] Work Phone: Cholesterol [Mass/Vol] 119 mg/dL <200 [facility] Work Phone: Comment on above: <200 mg/dL Desirable 200-240 mg/dL Borderline >240 mg/dL High Risk Glucose [Mass/Vol] 293 mg/dL 74-106 [facility] Work Phone: Comment on above: Glucose result great er than or equal to 200 mg/dLsuggests DIABETES MELLITUS per A.D.A. criteria. Potassium [Moles/Vol] 5.0 mmol/L 3.5-5.1 [facility] Work Phone: Protein [Mass/Vol] 7.2 g/dL 6.4-8.2 [facility] Work Phone: Sodium [Moles/Vol] 136 mmol/L 136-145 [facility] Work Phone: Triglyceride [Mass/Vol] 79 mg/dL [facility] Work Phone: Comment on above: The drugs N-Acetylcy steine and Metamizole may falsely depress this assay.Serum Triglycerides Reference Interval Normal <150 mg/dL Borderline high 150 - 199 mg/dL High 200 - 499 mg/dL Very High > or = 500 mg/dL WBC (Bld) [#/Vol] 6.4 10*3/uL 4.4-11.0 [facility] Work Phone: Blood erythrocytes count (nu mber/volume)on 12-19-2021 RBC (Bld) [#/Vol] 3.58 10*6/uL 4.2-5.4 [facility] Work Phone: Blood hemoglobin measurement (mass/volume)on 12-19-2021 Hemoglobin (Bld) [Mass/Vol] 10.4 g/dL 12.0-15.0 [facility] Work Phone: Blood platelet mean volumeon 12-19-2021 Platelet mean volume (Bld) [Entitic vol] 10.6 fL 6.2-12.0 [facility] Work Phone: Determination of erythrocyte mean corpuscular volume (MCV)on 12-19-2021 MCV (RBC) [Entitic vol] 93.9 fL 81-99 [facility] Work Phone: Hematocrit Auto (Bld) [Volum e fraction]on 12-19-2021 Hematocrit (Bld) [Volume fraction] 33.6 % 37-47 [facility] Work Phone: Iron measurement (mass/mass) on 12-19-2021 Iron (Unsp spec) [Mass/Mass] 50 ug/dL 50-170 [facility] Work Phone: Laboratory - Chemistry and C hemistry - challengeon 12-19-2021 ALP [Catalytic activity/Vol] 90 U/L 45-117 [facility] Work Phone: ALT [Catalytic activity/Vol] 21 U/L 13-56 [facility] Work Phone: CO2 [Moles/Vol] 26.0 mmol/L 21.0-32.0 [facility] Work Phone: Globulin (S) [Mass/Vol] 4.1 g/dL 2.2-4.2 [facility] Work Phone: Urea nitrogen/Creatinine [Mass ratio] 22.0 mg/mg 10-20 [facility] Work Phone: Laboratory - Hematology and Cell countson 12-19-2021 Erythrocyte distribution width (RBC) [Entitic vol] 47.5 fL 35.1-43.9 [facility] Work Phone: Erythrocyte distribution width (RBC) [Ratio] 13.8 % 11.6-14.6 [facility] Work Phone: MCH (RBC) [Entitic mass] 29.1 pg 27.0-32.0 [facility] Work Phone: MCHC Auto (RBC) [Mass/Vol]on 12-19-2021 MCHC (RBC) [Mass/Vol] 31.0 g/dL 32-36 [facility] Work Phone: No Panel Informationon 12-19 Estimated GFR (MDRD) Amer 35 mL/min >60 [facility] Work Phone: Comment on above: GFR Calc Estimated GFR (MDRD) Non-Af Amer 29 mL/min >60 [facility] Work Phone: Comment on above: Non- GFR Calc Parathyroid Hormone (Intact) 59.6 pg/mL 18.4-80.1 [facility] Work Phone: Thyroid Stimulating Hormone (TSH) 1.48 uIU/mL 0.358-3.74 [facility] Work Phone: Vitamin D 25-Hydroxy 46.2 ng/mL [facility] Work Phone: Comment on above: Vitamin D 25(OH) Sta tus Range Deficiency <20 ng/mL (50nmol/L) Insufficiency 20 - 30 ng/mL (50 - 75 nmol/L) Sufficiency 30 - 100 ng/mL (75 - 250 nmol/L) Toxicity >100 ng/mL (>250 nmol/L) Platelets bldon 12-19-2021 Platelets (Bld) [#/Vol] 237 10*3/uL 150-450 [facility] Work Phone: Serum or plasma albumin lesly urement (mass/volume)on 12-19-2021 Albumin [Mass/Vol] 3.1 g/dL 3.2-5.0 [facility] Work Phone: Serum or plasma albumin/glob ulin mass ratioon 12-19-2021 Albumin/Globulin [Mass ratio] 0.8 {ratio} 0.9-2.4 [facility] Work Phone: Serum or plasma calcium lesly urement (mass/volume)on 12-19-2021 Calcium [Mass/Vol] 8.8 mg/dL 8.5-10.1 [facility] Work Phone: Serum or plasma cholesterol in HDL measurement (mass/volume)on 12-19-2021 Cholesterol in HDL [Mass/Vol] 59 mg/dL [facility] Work Phone: Comment on above: The drugs N-Acetylcy steine and Metamizole may falsely depress this assay. Reference Range HDL <40 mg/dL Low HDL Cholesterol HDL >or= 60 mg/dL High HDL Cholesterol Serum or plasma cholesterol in VLDL measurement (mass/volume)on 12-19-2021 Cholesterol in VLDL [Mass/Vol] 16 mg/dL 5-40 [facility] Work Phone: Serum or plasma creatinine m easurement (mass/volume)on 12-19-2021 Creatinine [Mass/Vol] 1.86 mg/dL 0.55-1.02 [facility] Work Phone: Comment on above: The validity of the calculated GFR & GFRAA in patients over 70 years has not been determined. Clinical correlation is essential. Serum or plasma ferritin allyn surement (mass/volume)on 12-19-2021 Ferritin [Mass/Vol] 38 ng/mL 8-252 [facility] Work Phone: Serum or plasma low density lipoprotein (LDL) cholesterol measurement (mass/volume)on 12-19-2021 Cholesterol in LDL [Mass/Vol] 44 mg/dL 0-130 [facility] Work Phone: Serum or plasma urea nitroge n measurement (mass/volume)on 12-19-2021 Urea nitrogen [Mass/Vol] 41 mg/dL 7-18 [facility] Work Phone: Thin prep Papanicolaou smear with manual screeningon 12-19-2021 Thin prep Papanicolaou smear with manual screening 15 U/L 15-37 [facility] Work Phone: Thin prep Papanicolaou smear with manual screening 6 5-15 [facility] Work Phone: Office Visit: Diabetes follo w upon 03-05-2017 Dietary management education, guidance, and counseling (procedure) yes Invalid Interpretation Code [facility] Work Phone: Documentation of current medications (procedure) Done Invalid Interpretation Code [facility] Work Phone: Fall risk assessment Fall risk assessment Invali d Interpretation Code [facility] Work Phone: Smoking cessation education (procedure) yes Invalid Interpretation Code [facility] Work Phone: Tobacco smoking status NHIS Former Invalid Interpretation Code [facility] Work Phone: Tobacco use [facility]PHS Current every day smoker Invalid Interpretation Code [facility] Work Phone: Office Visit: Diabetic Evalu ationon 02-18-2017 Adolescent depression screening assessment Adolescent depression screening assessment Invalid Interpretation Code [facility] Work Phone: Fall risk assessment No Invalid Interpretation Code [facility] Work Phone: Chart Maintenanceon 01-08-20 17 HbA1c 10.0 % Invalid Interpretation Code [facility] Work Phone: Office Visit: Diabetic Evalu ationon 11-04-2011 General categories [interpretation] of Cervical or vaginal smear or scraping by Cyto stain Hysteectomy Invalid Interpretation Code [facility] Work Phone: Vital Signs Date Time Vital Sign Value Performing Clinician Facility 03-22-2025 13:04-0400 Body height 167.[address] Christy Huerta DO Work Phone: [facility] 03-22-2025 13:04-0400 Body temperature 98.2 [degF] Dr. Christy Huerta DO Work Phone: [facility] 03-22-2025 13:04-0400 Diastolic blood pressure 66 mm[Hg] Dr. Christy Huerta DO Work Phone: [facility] 03-22-2025 13:04-0400 Heart rate 55 /min Dr. Christy Huerta DO Work Phone: [facility] 03-22-2025 13:04-0400 Respiratory rate 16 /min Dr. Christy Huerta DO Work Phone: [facility] 03-22-2025 13:04-0400 SaO2% (BldA) [Mass fraction] 100 % Dr. Christy Huerta DO Work Phone: [facility] 03-22-2025 13:04-0400 Systolic blood pressure 177 mm[Hg] Dr. Christy Huerta DO Work Phone: [facility] 01-27-2025 08:42-0400 Body mass index (BMI) [Ratio] 17.2 kg/m2 Dr. Christy Huerta DO Work Phone: [facility] 01-27-2025 08:42-0400 Body weight 48.[address] Christy Huerta DO Work Phone: [facility] 01-27-2025 08:42-0400 Diastolic blood pressure 72 mm[Hg] Dr. Christy Huerta DO Work Phone: [facility] 01-27-2025 08:42-0400 Heart rate 65 /min Dr. Christy Huerta DO Work Phone: [facility] 01-27-2025 08:42-0400 Inhaled oxygen flow rate 3 L/min Dr. Christy Huerta DO Work Phone: [facility] 01-27-2025 08:42-0400 SaO2% (BldA) [Mass fraction] 99 % Dr. Christy Huerta DO Work Phone: [facility] 01-27-2025 08:42-0400 Systolic blood pressure 172 mm[Hg] Dr. Christy Huerta DO Work Phone: [facility] 01-11-2025 15:17-0400 Body temperature 97.8 [degF] Dr. Bird Lujan MD Work Phone: [facility] 01-11-2025 15:17-0400 Body weight 50.[address] Bird Lujan MD Work Phone: [facility] 01-11-2025 15:17-0400 Diastolic blood pressure 52 mm[Hg] Dr. Bird Lujan MD Work Phone: [facility] 01-11-2025 15:17-0400 Heart rate 60 /min Dr. Bird Lujan MD Work Phone: [facility] 01-11-2025 15:17-0400 Inhaled oxygen flow rate 3 L/min Dr. Bird Lujan MD Work Phone: [facility] 01-11-2025 15:17-0400 Respiratory rate 16 /min Dr. Bird Lujan MD Work Phone: [facility] 01-11-2025 15:17-0400 SaO2% (BldA) [Mass fraction] 100 % Dr. Bird Lujan MD Work Phone: [facility] 01-11-2025 15:17-0400 Systolic blood pressure 125 mm[Hg] Dr. Bird Lujan MD Work Phone: 4(592)753-887173 [place] [address] 01-10-2025 09:10-0400 Body height 167.[address] Bird Lujan MD Work Phone: 8(178)469-534817 [place] [address] 01-06-2025 09:46-0500 Inhaled oxygen flow rate 2 L/min Dr. Bird Lujan MD Work Phone: 1(814)890-725017 [place] [address] 01-06-2025 08:32-0500 Heart rate 65 /min Dr. Bird Lujan MD Work Phone: 5(233)750-771317 [place] [address] 01-06-2025 08:27-0500 Body temperature 97.6 [degF] Dr. Bird Lujan MD Work Phone: 6(132)396-850287 [address] 01-06-2025 08:27-0500 Diastolic blood pressure 54 mm[Hg] Dr. Bird Lujan MD Work Phone: 1(028)989-117173 [place] [address] 01-06-2025 08:27-0500 Respiratory rate 18 /min Dr. Bird Lujan MD Work Phone: 2(424)263-099873 [place] [address] 01-06-2025 08:27-0500 SaO2% (BldA) [Mass fraction] 99 % Dr. Bird Lujan MD Work Phone: 6(200)606-910173 [place] [address] 01-06-2025 08:27-0500 Systolic blood pressure 143 mm[Hg] Dr. Bird Lujan MD Work Phone: 6(921)068-245017 [place] [address] 01-05-2025 16:00-0500 Body mass index (BMI) [Ratio] 16.5 kg/m2 Dr. Bird Lujan MD Work Phone: 2(530)173-452373 [place] [address] 01-05-2025 16:00-0500 Body weight 46.[address] Bird Lujan MD Work Phone: [facility] 01-05-2025 14:33-0500 Inhaled oxygen concentration 30 % Dr. Bird Lujan MD Work Phone: [facility] 12-28-2024 19:34-0500 Body temperature 97.7 [degF] Dr. Bird Lujan MD Work Phone: 9(230)925-103673 [place] [address] 12-28-2024 19:34-0500 Diastolic blood pressure 54 mm[Hg] Dr. Bird Lujan MD Work Phone: 9(953)034-617273 [place] [address] 12-28-2024 19:34-0500 Heart rate 61 /min Dr. Bird Lujan MD Work Phone: 8(233)095-417873 [place] [address] 12-28-2024 19:34-0500 Respiratory rate 16 /min Dr. Bird Lujan MD Work Phone: 2(084)219-895373 [place] [address] 12-28-2024 19:34-0500 SaO2% (BldA) [Mass fraction] 100 % Dr. Bird Lujan MD Work Phone: 7(438)349-800573 [place] [address] 12-28-2024 19:34-0500 Systolic blood pressure 118 mm[Hg] Dr. Bird Lujan MD Work Phone: 3(294)400-799673 [place] [address] 12-28-2024 13:56-0500 Inhaled oxygen flow rate 6 L/min Dr. Bird Lujan MD Work Phone: [facility] 12-28-2024 10:12-0500 Body mass index (BMI) [Ratio] 17.8 kg/m2 Dr. Bird Lujan MD Work Phone: [facility] 12-28-2024 10:12-0500 Body weight [address] Bird Lujan MD Work Phone: 6(093)901-888573 [place] [address] 12-16-2024 13:53-0500 Body mass index (BMI) [Ratio] 17.4 kg/m2 Dr. Bird Lujan MD Work Phone: [facility] 12-16-2024 13:53-0500 Body weight 48.[address] Bird Lujan MD Work Phone: [facility] 12-16-2024 13:53-0500 Diastolic blood pressure 71 mm[Hg] Dr. Bird Lujan MD Work Phone: 2(921)289-234973 [place] [address] 12-16-2024 13:53-0500 Heart rate 61 /min Dr. Bird Lujan MD Work Phone: 8(911)425-367173 [place] [address] 12-16-2024 13:53-0500 Inhaled oxygen flow rate 3 L/min Dr. Bird Lujan MD Work Phone: 7(566)623-477387 [address] 12-16-2024 13:53-0500 Respiratory rate 18 /min Dr. Bird Lujan MD Work Phone: 0(929)939-657273 [place] [address] 12-16-2024 13:53-0500 SaO2% (BldA) [Mass fraction] 100 % Dr. Bird Lujan MD Work Phone: [facility] 12-16-2024 13:53-0500 Systolic blood pressure 164 mm[Hg] Dr. Bird Lujan MD Work Phone: [facility] 12-02-2024 14:48-0500 Body temperature 98.4 [degF] Dr. Bird Lujan MD Work Phone: 0(300)234-724073 [place] [address] 12-02-2024 14:48-0500 Body weight 49.[address] Bird Lujan MD Work Phone: [facility] 12-02-2024 14:48-0500 Diastolic blood pressure 65 mm[Hg] Dr. Bird Lujan MD Work Phone: [facility] 12-02-2024 14:48-0500 Heart rate 65 /min Dr. Bird Lujan MD Work Phone: [facility] 12-02-2024 14:48-0500 Inhaled oxygen flow rate 3 L/min Dr. Bird Lujan MD Work Phone: 4(568)841-376373 [place] [address] 12-02-2024 14:48-0500 Respiratory rate 16 /min Dr. Bird Lujan MD Work Phone: 4(460)863-620217 [place] [address] 12-02-2024 14:48-0500 SaO2% (BldA) [Mass fraction] 99 % Dr. Bird Lujan MD Work Phone: 1(453)160-682117 [place] [address] 12-02-2024 14:48-0500 Systolic blood pressure 161 mm[Hg] Dr. Bird Lujan MD Work Phone: 1(376)198-220217 [place] [address] 11-20-2024 23:26-0500 Body temperature 98.3 [degF] Dr. Bird Lujan MD Work Phone: 3(728)445-698417 [place] [address] 11-20-2024 23:26-0500 Diastolic blood pressure 49 mm[Hg] Dr. Bird Lujan MD Work Phone: 2(035)197-544817 [place] [address] 11-20-2024 23:26-0500 Heart rate 73 /min Dr. Bird Lujan MD Work Phone: 7(944)980-572617 [place] [address] 11-20-2024 23:26-0500 Respiratory rate 19 /min Dr. Bird Lujan MD Work Phone: 9(452)501-448317 [place] [address] 11-20-2024 23:26-0500 SaO2% (BldA) [Mass fraction] 100 % Dr. Bird Lujan MD Work Phone: 1(096)341-572117 [place] [address] 11-20-2024 23:26-0500 Systolic blood pressure 119 mm[Hg] Dr. Bird Lujan MD Work Phone: 0(577)194-537117 [place] [address] 11-20-2024 18:44-0500 Body mass index (BMI) [Ratio] 17.9 kg/m2 Dr. Bird Lujan MD Work Phone: 6(455)713-948917 [place] [address] 11-20-2024 18:44-0500 Body weight 50.[address] Bird Lujan MD Work Phone: 7(361)297-058773 [place] [address] 11-20-2024 18:44-0500 Inhaled oxygen flow rate 3 L/min Dr. Bird Lujan MD Work Phone: 8(857)362-021673 [place] [address] 11-04-2024 16:07-0500 Body mass index (BMI) [Ratio] 18.1 kg/m2 Dr. Bird Lujan MD Work Phone: 5(575)012-801217 [place] [address] 11-04-2024 16:07-0500 Body temperature 97.2 [degF] Dr. Bird Lujan MD Work Phone: 4(700)663-056117 [place] [address] 11-04-2024 16:07-0500 Body weight 50.[address] Bird Lujan MD Work Phone: 8(727)613-659417 [place] [address] 11-04-2024 16:07-0500 Diastolic blood pressure 84 mm[Hg] Dr. Bird Lujan MD Work Phone: 2(217)995-376217 [place] [address] 11-04-2024 16:07-0500 Heart rate 72 /min Dr. Bird Lujan MD Work Phone: 9(694)735-175517 [place] [address] 11-04-2024 16:07-0500 Respiratory rate 15 /min Dr. Bird Lujan MD Work Phone: 7(751)187-505117 [place] [address] 11-04-2024 16:07-0500 SaO2% (BldA) [Mass fraction] 100 % Dr. Bird Lujan MD Work Phone: 4(509)863-587117 [place] [address] 11-04-2024 16:07-0500 Systolic blood pressure 194 mm[Hg] Dr. Bird Lujan MD Work Phone: 6(100)406-186417 [place] [address] 11-04-2024 15:51-0500 Diastolic blood pressure 82 mm[Hg] Dr. Bird Lujan MD Work Phone: 4(749)[phone] [place] [address] 11-04-2024 15:51-0500 Systolic blood pressure 218 mm[Hg] Dr. Bird Lujan MD Work Phone: 4(779)[phone] [place] [address] 11-04-2024 08:00-0500 Body mass index (BMI) [Ratio] 18.1 kg/m2 Dr. Bird Lujan MD Work Phone: [facility] 11-04-2024 08:00-0500 Body temperature 97.4 [degF] Dr. Bird Lujan MD Work Phone: [facility] 11-04-2024 08:00-0500 Body weight 50.[address] Bird Lujan MD Work Phone: 8(655)016-699373 [place] [address] 11-04-2024 08:00-0500 Heart rate 75 /min Dr. Bird Lujan MD Work Phone: 8(800)507-309787 [address] 11-04-2024 08:00-0500 Inhaled oxygen flow rate 3 L/min Dr. Bird Lujan MD Work Phone: 3(820)917-269273 [place] [address] 11-04-2024 08:00-0500 Respiratory rate 20 /min Dr. Bird Lujan MD Work Phone: 7(944)157-563573 [place] [address] 11-04-2024 08:00-0500 SaO2% (BldA) [Mass fraction] 99 % Dr. Bird Lujan MD Work Phone: [facility] 10-07-2024 13:43-0500 Body mass index (BMI) [Ratio] 16.8 kg/m2 Dr. Bird Lujan MD Work Phone: 1(503)808-777073 [place] [address] 10-07-2024 13:43-0500 Body weight 47.[address] Bird Lujan MD Work Phone: [facility] 10-07-2024 13:43-0500 Diastolic blood pressure 73 mm[Hg] Dr. Bird Lujan MD Work Phone: [facility] 10-07-2024 13:43-0500 Heart rate 76 /min Dr. Bird Lujan MD Work Phone: [facility] 10-07-2024 13:43-0500 Inhaled oxygen flow rate 3 L/min Dr. Bird Lujan MD Work Phone: [facility] 10-07-2024 13:43-0500 SaO2% (BldA) [Mass fraction] 100 % Dr. Bird Lujan MD Work Phone: [facility] 10-07-2024 13:43-0500 Systolic blood pressure 172 mm[Hg] Dr. Bird Lujan MD Work Phone: [facility] 08-24-2024 15:33-0400 Heart rate 83 /min Lucina CaseRev DO Work Phone: [facility] [employer] 08-24-2024 15:33-0400 Respiratory rate 12 /min Lucina [employer]angel[employer] DO Work Phone: [facility] [employer] 08-24-2024 15:33-0400 SaO2% (BldA) [Mass fraction] 99 % Lucina CaseRev DO Work Phone: [facility] [employer] 08-24-2024 07:34-0400 Body temperature 97.9 [degF] Lucina CaseRev DO Work Phone: [email or web address] 08-24-2024 07:34-0400 Diastolic blood pressure 58 mm[Hg] Igenicaangelia DO Work Phone: [email or web address] 08-24-2024 07:34-0400 Systolic blood pressure 141 mm[Hg] Igenicaangelia DO Work Phone: [facility] [employer] 08-24-2024 06:00-0400 Body mass index (BMI) [Ratio] 19.43 kg/m2 [employer] DO Work Phone: [email or web address] 08-24-2024 06:00-0400 Body weight 54.6 kg Igenicaangelia DO Work Phone: [email or web address] 08-22-2024 23:29-0400 Body height 167.6 cm [employer] DO Work Phone: [email or web address] 08-21-2024 15:09-0400 SaO2% (BldA) [Mass fraction] 96.1 % Lucina Galvan DO Work Phone: [facility] [employer] 08-21-2024 09:09-0400 SaO2% (BldA) [Mass fraction] 96.6 % Lucina Galvan DO Work Phone: [facility] [employer] 08-20-2024 21:28-0400 SaO2% (BldA) [Mass fraction] 98.1 % Lucina Galvan DO Work Phone: [facility] [employer] 08-20-2024 16:12-0400 SaO2% (BldA) [Mass fraction] 96.9 % Lucina Galvan DO Work Phone: [facility] [employer] 08-20-2024 13:02-0400 SaO2% (BldA) [Mass fraction] 68.2 % Lucina Galvan DO Work Phone: [facility] [employer] 08-20-2024 10:31-0400 SaO2% (BldA) [Mass fraction] 92.1 % Lucina Galvan DO Work Phone: [facility] [employer] 08-13-2024 07:08-0400 SaO2% (BldA) [Mass fraction] 95.8 % Lucina Galvan DO Work Phone: [facility] [employer] 08-10-2024 12:21-0400 Diastolic blood pressure 56 mm[Hg] Colin Peoples MD Work Phone: [facility] [employer] 08-10-2024 12:21-0400 Heart rate 81 /min Colin Peoples MD Work Phone: [facility] [employer] 08-10-2024 12:21-0400 Systolic blood pressure 133 mm[Hg] Colin Peoples MD Work Phone: [facility] [employer] 08-10-2024 12:17-0400 Body temperature 97 [degF] Colin Peoples MD Work Phone: [facility] 08-10-2024 12:17-0400 Respiratory rate 16 /min Colin Peoples MD Work Phone: [facility] 08-10-2024 12:17-0400 SaO2% (BldA) [Mass fraction] 100 % Colin Peoples MD Work Phone: [facility] 08-07-2024 04:00-0400 Body mass index (BMI) [Ratio] 20.43 kg/m2 Colin Peoples MD Work Phone: [facility] 08-07-2024 04:00-0400 Body weight 57.4 kg Colin Peoples MD Work Phone: [facility] 08-03-2024 13:55-0400 Body height 167.6 cm Colin Peoples MD Work Phone: [facility] 07-31-2024 06:18-0400 SaO2% (BldA) [Mass fraction] 98.0 % Colin Peoples MD Work Phone: [facility] 02-05-2024 07:48-0400 Body height 167.[address] Sin Lujan Work Phone: [facility] 02-05-2024 07:48-0400 Body mass index (BMI) [Ratio] 15.1 kg/m2 Dr. Sin Lujan Work Phone: [facility] 02-05-2024 07:48-0400 Body temperature 94.6 [degF] Dr. Sin Lujan Work Phone: [facility] 02-05-2024 07:48-0400 Body weight 42.[address] Sin Lujan Work Phone: [facility] 02-05-2024 07:48-0400 Diastolic blood pressure 66 mm[Hg] Dr. Sin Lujan Work Phone: [facility] 02-05-2024 07:48-0400 Heart rate 61 /min Dr. Sin Lujan Work Phone: [facility] 02-05-2024 07:48-0400 Inhaled oxygen flow rate 3 L/min Dr. Sin Lujan Work Phone: [facility] 02-05-2024 07:48-0400 Respiratory rate 18 /min Dr. Sin Lujan Work Phone: [facility] 02-05-2024 07:48-0400 SaO2% (BldA) [Mass fraction] 99 % Dr. Sin Lujan Work Phone: [facility] 02-05-2024 07:48-0400 Systolic blood pressure 107 mm[Hg] Dr. Sin Lujan Work Phone: [facility] 12-03-2023 10:07-0500 Body height 167.[address] Sin Lujan Work Phone: 2(631)[phone] [address] 12-03-2023 10:07-0500 Body mass index (BMI) [Ratio] 16.2 kg/m2 Dr. Sin Lujan Work Phone: [facility] 12-03-2023 10:07-0500 Body temperature 97.8 [degF] Dr. Sin Lujan Work Phone: [facility] 12-03-2023 10:07-0500 Body weight 45.[address] Sin Lujan Work Phone: [facility] 12-03-2023 10:07-0500 Diastolic blood pressure 75 mm[Hg] Dr. Sin Lujan Work Phone: [facility] 12-03-2023 10:07-0500 Heart rate 52 /min Dr. Sin Lujan Work Phone: [facility] 12-03-2023 10:07-0500 Respiratory rate 16 /min Dr. Sin Lujan Work Phone: [facility] 12-03-2023 10:07-0500 SaO2% (BldA) [Mass fraction] 92 % Dr. Sin Lujan Work Phone: [facility] 12-03-2023 10:07-0500 Systolic blood pressure 148 mm[Hg] Dr. Sin Lujan Work Phone: [facility] 11-18-2023 10:57-0500 Body height 167.[address] Sin Lujan Work Phone: [facility] 11-18-2023 10:57-0500 Body mass index (BMI) [Ratio] 16 kg/m2 Dr. Sin Lujan Work Phone: [facility] 11-18-2023 10:57-0500 Body weight 44.[address] Sin Lujan Work Phone: [facility] 11-18-2023 10:57-0500 Diastolic blood pressure 72 mm[Hg] Dr. Sin Lujan Work Phone: [facility] 11-18-2023 10:57-0500 Heart rate 59 /min Dr. Sin Lujan Work Phone: [facility] 11-18-2023 10:57-0500 Inhaled oxygen flow rate 3 L/min Dr. Sin Lujan Work Phone: [facility] 11-18-2023 10:57-0500 Respiratory rate 18 /min Dr. Sin Lujan Work Phone: [facility] 11-18-2023 10:57-0500 SaO2% (BldA) [Mass fraction] 99 % Dr. Sin Lujan Work Phone: [facility] 11-18-2023 10:57-0500 Systolic blood pressure 148 mm[Hg] Dr. Sin Lujan Work Phone: [facility] 10-29-2023 08:59-0500 Body height 167.[address] Sin Lujan Work Phone: [facility] 10-29-2023 08:59-0500 Body mass index (BMI) [Ratio] 15.8 kg/m2 Dr. Sin Lujan Work Phone: [facility] 10-29-2023 08:59-0500 Body temperature 97.4 [degF] Dr. Sin Lujan Work Phone: [facility] 10-29-2023 08:59-0500 Body weight 44.[address] Sin Lujan Work Phone: [facility] 10-29-2023 08:59-0500 Diastolic blood pressure 63 mm[Hg] Dr. Sin Lujan Work Phone: [facility] 10-29-2023 08:59-0500 Heart rate 67 /min Dr. Sin Lujan Work Phone: [facility] 10-29-2023 08:59-0500 Inhaled oxygen flow rate 3 L/min Dr. Sin Lujan Work Phone: [facility] 10-29-2023 08:59-0500 Respiratory rate 22 /min Dr. Sin Lujan Work Phone: [facility] 10-29-2023 08:59-0500 SaO2% (BldA) [Mass fraction] 99 % Dr. Sin Lujan Work Phone: [facility] 10-29-2023 08:59-0500 Systolic blood pressure 121 mm[Hg] Dr. Sin Lujan Work Phone: [facility] 07-14-2023 10:44-0400 Body height 167.64 cm [employer]addy Davis [employer] Work Phone: [facility] 07-14-2023 10:44-0400 Body mass index (BMI) [Ratio] 15.3 kg/m2 [employer]-Marquis Davis [employer] Work Phone: [facility] 07-14-2023 10:44-0400 Body temperature 97.8 [degF] [employer]addy Davis [employer] Work Phone: [facility] 07-14-2023 10:44-0400 Body weight 43.26 kg [employer]C Jeanna Davis [employer] Work Phone: [facility] 07-14-2023 10:44-0400 Diastolic blood pressure 72 mm[Hg] [employer] Jeanna Davis [employer] Work Phone: [facility] 07-14-2023 10:44-0400 Heart rate 70 /min [employer] Jeanna Davis [employer] Work Phone: [facility] 07-14-2023 10:44-0400 Respiratory rate 16 /min [employer] Jeanna Davis [employer] Work Phone: [facility] 07-14-2023 10:44-0400 SaO2% (BldA) [Mass fraction] 95 % [employer] Jeanna Davis [employer] Work Phone: [facility] 07-14-2023 10:44-0400 Systolic blood pressure 144 mm[Hg] [employer] Jeanna Davis [employer] Work Phone: [facility] 06-25-2023 05:47-0400 Body mass index (BMI) [Ratio] 15.7 kg/m2 [employer] Jeanna Davis [employer] Work Phone: [facility] 06-25-2023 05:47-0400 Body temperature 96.8 [degF] [employer] Jeanna Davis [employer] Work Phone: [facility] 06-25-2023 05:47-0400 Body weight 44.45 kg [employer] Jeanna Davis [employer] Work Phone: [facility] 06-25-2023 05:47-0400 Diastolic blood pressure 75 mm[Hg] [employer] Jeanna Davis [employer] Work Phone: [facility] 06-25-2023 05:47-0400 Heart rate 62 /min [employer] Jeanna Davis [employer] Work Phone: [facility] 06-25-2023 05:47-0400 Respiratory rate 16 /min [employer] Jeanna Davis [employer] Work Phone: [facility] 06-25-2023 05:47-0400 SaO2% (BldA) [Mass fraction] 96 % [employer] Jeanna Davis [employer] Work Phone: [facility] 06-25-2023 05:47-0400 Systolic blood pressure 136 mm[Hg] [employer] Jeanna Davis [employer] Work Phone: [facility] 06-12-2023 08:36-0400 Body height 167.[address] Sin Lujan Work Phone: [facility] 06-12-2023 08:36-0400 Body weight 45.[address] Sin Lujan Work Phone: [facility] 06-12-2023 08:36-0400 Heart rate 59 /min Dr. Sin Lujan Work Phone: [facility] 06-12-2023 08:36-0400 Inhaled oxygen flow rate 2 L/min Dr. Sin Lujan Work Phone: [facility] 06-12-2023 08:36-0400 SaO2% (BldA) [Mass fraction] 89 % Dr. Sin Lujan Work Phone: [facility] 04-09-2023 14:31-0400 Body height 167.[address] Sin Lujan Work Phone: [facility] 04-09-2023 14:31-0400 Body mass index (BMI) [Ratio] 16 kg/m2 Dr. Sin Lujan Work Phone: [facility] 04-09-2023 14:31-0400 Body weight 44.[address] Sin Lujan Work Phone: [facility] 04-09-2023 14:31-0400 Diastolic blood pressure 65 mm[Hg] Dr. Sin Lujan Work Phone: [facility] 04-09-2023 14:31-0400 Heart rate 59 /min Dr. Sin Lujan Work Phone: [facility] 04-09-2023 14:31-0400 Respiratory rate 18 /min Dr. Sin Lujan Work Phone: [facility] 04-09-2023 14:31-0400 Systolic blood pressure 113 mm[Hg] Dr. Sin Lujan Work Phone: [facility] 02-17-2023 07:47-0400 Body height 167.[address] Sin Lujan Work Phone: [facility] 02-17-2023 07:47-0400 Body mass index (BMI) [Ratio] 16 kg/m2 Dr. Sin Lujan Work Phone: [facility] 02-17-2023 07:47-0400 Body temperature 97 [degF] Dr. Sin Lujan Work Phone: [facility] 02-17-2023 07:47-0400 Body weight 44.[address] Sin Lujan Work Phone: [facility] 02-17-2023 07:47-0400 Diastolic blood pressure 58 mm[Hg] Dr. Sin Lujan Work Phone: [facility] 02-17-2023 07:47-0400 Heart rate 69 /min Dr. Sin Lujan Work Phone: [facility] 02-17-2023 07:47-0400 Respiratory rate 18 /min Dr. Sin Lujan Work Phone: [facility] 02-17-2023 07:47-0400 SaO2% (BldA) [Mass fraction] 95 % Dr. Sin Lujan Work Phone: [facility] 02-17-2023 07:47-0400 Systolic blood pressure 98 mm[Hg] Dr. Sin Lujan Work Phone: [facility] 01-01-2023 13:19-0500 Body mass index (BMI) [Ratio] 16.2 kg/m2 Dr. Sin Lujan Work Phone: [facility] 01-01-2023 13:19-0500 Body temperature 96.9 [degF] Dr. Sin Lujan Work Phone: [facility] 01-01-2023 13:19-0500 Body weight 45.[address] Sin Lujan Work Phone: [facility] 01-01-2023 13:19-0500 Diastolic blood pressure 77 mm[Hg] Dr. Sin Lujan Work Phone: [facility] 01-01-2023 13:19-0500 Heart rate 67 /min Dr. Sin Lujan Work Phone: [facility] 01-01-2023 13:19-0500 Respiratory rate 18 /min Dr. Sin Lujan Work Phone: [facility] 01-01-2023 13:19-0500 SaO2% (BldA) [Mass fraction] 92 % Dr. Sin Lujan Work Phone: [facility] 01-01-2023 13:19-0500 Systolic blood pressure 143 mm[Hg] Dr. Sin Lujan Work Phone: [facility] 09-05-2022 07:40-0400 Body height 167.[address] Sin Lujan Work Phone: [facility] Work Phone: 09-05-2022 07:40-0400 Body mass index (BMI) [Ratio] 17.2 kg/m2 Dr. Sin Lujan Work Phone: [facility] Work Phone: 09-05-2022 07:40-0400 Body temperature 98 [degF] Dr. Sin Lujan Work Phone: [facility] Work Phone: 09-05-2022 07:40-0400 Body weight 48.[address] Sin Lujan Work Phone: [facility] Work Phone: 09-05-2022 07:40-0400 Diastolic blood pressure 73 mm[Hg] Dr. Sin Lujan Work Phone: [facility] Work Phone: 09-05-2022 07:40-0400 Heart rate 66 /min Dr. Sin Lujan Work Phone: [facility] Work Phone: 09-05-2022 07:40-0400 Respiratory rate 16 /min Dr. Sin Lujan Work Phone: [facility] Work Phone: 09-05-2022 07:40-0400 SaO2% (BldA) [Mass fraction] 99 % Dr. Sin Lujan Work Phone: [facility] Work Phone: 09-05-2022 07:40-0400 Systolic blood pressure 160 mm[Hg] Dr. Sin Lujan Work Phone: [facility] Work Phone: 07-31-2022 12:46-0400 Body height 167.[address] Sin Lujan Work Phone: [facility] Work Phone: 07-31-2022 12:46-0400 Body weight 45.[address] Sin Lujan Work Phone: [facility] Work Phone: 07-31-2022 12:46-0400 Heart rate 79 /min Dr. Sin Lujan Work Phone: [facility] Work Phone: 07-31-2022 12:46-0400 SaO2% (BldA) [Mass fraction] 97 % Dr. Sin Lujan Work Phone: [facility] Work Phone: 07-04-2022 10:35-0400 Body mass index (BMI) [Ratio] 16.5 kg/m2 Dr. Sin Lujan Work Phone: [facility] Work Phone: 07-04-2022 10:35-0400 Body temperature 95.2 [degF] Dr. Sin Lujan Work Phone: [facility] Work Phone: 07-04-2022 10:35-0400 Body weight 46.[address] Sin Lujan Work Phone: [facility] Work Phone: 07-04-2022 10:35-0400 Diastolic blood pressure 76 mm[Hg] Dr. Sin Lujan Work Phone: [facility] Work Phone: 07-04-2022 10:35-0400 Heart rate 68 /min Dr. Sin Lujan Work Phone: [facility] Work Phone: 07-04-2022 10:35-0400 Respiratory rate 18 /min Dr. Sin Lujan Work Phone: [facility] Work Phone: 07-04-2022 10:35-0400 SaO2% (BldA) [Mass fraction] 96 % Dr. Sin Lujan Work Phone: [facility] Work Phone: 07-04-2022 10:35-0400 Systolic blood pressure 130 mm[Hg] Dr. Sin Lujan Work Phone: [facility] Work Phone: 05-28-2022 12:54-0400 Body height 167.64 cm No PCP None KD-Mxzdvbccdd-PA C [facility] [address] Work Phone: 05-28-2022 12:54-0400 Body mass index (BMI) [Ratio] 17.24 kg/m2 No PCP None SH-Fiimqmuzss-LHA [place] [address] Work Phone: 05-28-2022 12:54-0400 Body surface area Derived from formula 1.53 m2 No PCP None CV-Nrnqealpnu-PMK [place] [address] Work Phone: 05-28-2022 12:54-0400 Body temperature 97.2 [degF] No PCP None DV-Dcjzpareer-L MC [place] [address] Work Phone: 05-28-2022 12:54-0400 Body weight 48.44 kg No PCP None XT-Wzllkdifut-ZV C [place] [address] Work Phone: 05-28-2022 12:54-0400 Diastolic blood pressure 55 mm[Hg] No PCP None OD-Claruiqudk-YFM [place] [address] Work Phone: 05-28-2022 12:54-0400 Heart rate 68 /min No PCP None KQ-Bwmhclrjhg-UT C [place] [address] Work Phone: 05-28-2022 12:54-0400 SaO2% (BldA) [Mass fraction] 98 % No PCP None GB-Jybylppwyz-CSY [place] [address] Work Phone: 05-28-2022 12:54-0400 Systolic blood pressure 111 mm[Hg] No PCP None SW-Uvtoiwmxnr-SMB [place] [address] Work Phone: 05-28-2022 12:54-0400 0 1 No PCP None LT-Dsnvetxsrj-QU C [facility] [address] Work Phone: Comment on above: [employer] 05-13-2022 08:14-0400 Body mass index (BMI) [Ratio] 16.9 kg/m2 Dr. Sin Lujan Work Phone: [facility] Work Phone: 05-13-2022 08:14-0400 Body temperature 97.4 [degF] Dr. Sin Lujan Work Phone: [facility] Work Phone: 05-13-2022 08:14-0400 Body weight 47.[address] Sin Lujan Work Phone: [facility] Work Phone: 05-13-2022 08:14-0400 Diastolic blood pressure 62 mm[Hg] Dr. Sin Lujan Work Phone: [facility] Work Phone: 05-13-2022 08:14-0400 Heart rate 67 /min Dr. Sin Lujan Work Phone: [facility] Work Phone: 05-13-2022 08:14-0400 Respiratory rate 16 /min Dr. Sin Lujan Work Phone: [facility] Work Phone: 05-13-2022 08:14-0400 SaO2% (BldA) [Mass fraction] 99 % Dr. Sin Lujan Work Phone: [facility] Work Phone: 05-13-2022 08:14-0400 Systolic blood pressure 126 mm[Hg] Dr. Sin Lujan Work Phone: [facility] Work Phone: 02-21-2022 13:07-0400 Body height 167.[address] Sin Lujan Work Phone: [facility] Work Phone: 02-21-2022 13:07-0400 Body mass index (BMI) [Ratio] 16.1 kg/m2 Dr. Sin Lujan Work Phone: [facility] Work Phone: 02-21-2022 13:07-0400 Body temperature 99.1 [degF] Dr. Sin Lujan Work Phone: [facility] Work Phone: 02-21-2022 13:07-0400 Body weight 45.[address] Sin Lujan Work Phone: [facility] Work Phone: 02-21-2022 13:07-0400 Diastolic blood pressure 75 mm[Hg] Dr. Sin Lujan Work Phone: [facility] Work Phone: 02-21-2022 13:07-0400 Heart rate 61 /min Dr. Sin Lujan Work Phone: [facility] Work Phone: 02-21-2022 13:07-0400 Respiratory rate 17 /min Dr. Sin Lujan Work Phone: [facility] Work Phone: 02-21-2022 13:07-0400 SaO2% (BldA) [Mass fraction] 95 % Dr. Sin Lujan Work Phone: [facility] Work Phone: 02-21-2022 13:07-0400 Systolic blood pressure 130 mm[Hg] Dr. Sin Lujan Work Phone: [facility] Work Phone: 02-21-2022 13:07-0400 Body height 167.[address] Sin Lujan Work Phone: [facility] Work Phone: 02-21-2022 13:07-0400 Body mass index (BMI) [Ratio] 16.1 kg/m2 Dr. Sin Lujan Work Phone: [facility] Work Phone: 02-21-2022 13:07-0400 Body temperature 99.1 [degF] Dr. Sin Lujan Work Phone: [facility] Work Phone: 02-21-2022 13:07-0400 Body weight 45.[address] Sin Lujan Work Phone: [facility] Work Phone: 02-21-2022 13:07-0400 Diastolic blood pressure 75 mm[Hg] Dr. Sin Lujan Work Phone: [facility] Work Phone: 02-21-2022 13:07-0400 Heart rate 61 /min Dr. Sin Lujan Work Phone: [facility] Work Phone: 02-21-2022 13:07-0400 Respiratory rate 17 /min Dr. Sin Lujan Work Phone: [facility] Work Phone: 02-21-2022 13:07-0400 SaO2% (BldA) [Mass fraction] 95 % Dr. Sin Lujan Work Phone: [facility] Work Phone: 02-21-2022 13:07-0400 Systolic blood pressure 130 mm[Hg] Dr. Sin Lujan Work Phone: [facility] Work Phone: 01-10-2022 08:05-0500 Body mass index (BMI) [Ratio] 17.3 kg/m2 Dr. Sin Lujan Work Phone: [facility] Work Phone: 01-10-2022 08:05-0500 Body temperature 97.3 [degF] Dr. Sin Lujan Work Phone: [facility] Work Phone: 01-10-2022 08:05-0500 Body weight 48.[address] Sin Lujan Work Phone: [facility] Work Phone: 01-10-2022 08:05-0500 Diastolic blood pressure 60 mm[Hg] Dr. Sin Lujan Work Phone: [facility] Work Phone: 01-10-2022 08:05-0500 Heart rate 77 /min Dr. Sin Lujan Work Phone: [facility] Work Phone: 01-10-2022 08:05-0500 Respiratory rate 18 /min Dr. Sin Lujan Work Phone: [facility] Work Phone: 01-10-2022 08:05-0500 SaO2% (BldA) [Mass fraction] 95 % Dr. Sin Lujan Work Phone: [facility] Work Phone: 01-10-2022 08:05-0500 Systolic blood pressure 140 mm[Hg] Dr. Sin Lujan Work Phone: [facility] Work Phone: 01-10-2022 07:05-0500 Body height 167.[address] Sin Lujan Work Phone: [facility] Work Phone: 01-10-2022 07:05-0500 Body mass index (BMI) [Ratio] 17.3 kg/m2 Dr. Sin Lujan Work Phone: [facility] Work Phone: 01-10-2022 07:05-0500 Body temperature 97.3 [degF] Dr. Sin Lujan Work Phone: [facility] Work Phone: 01-10-2022 07:05-0500 Body weight 48.[address] Sin Lujan Work Phone: [facility] Work Phone: 01-10-2022 07:05-0500 Diastolic blood pressure 60 mm[Hg] Dr. Sin Lujan Work Phone: [facility] Work Phone: 01-10-2022 07:05-0500 Heart rate 77 /min Dr. Sin Lujan Work Phone: [facility] Work Phone: 01-10-2022 07:05-0500 Respiratory rate 18 /min Dr. Sin Lujan Work Phone: [facility] Work Phone: 01-10-2022 07:05-0500 SaO2% (BldA) [Mass fraction] 95 % Dr. Sin Lujan Work Phone: [facility] Work Phone: 01-10-2022 07:05-0500 Systolic blood pressure 140 mm[Hg] Dr. Sin Lujan Work Phone: [facility] Work Phone: 03-05-2017 16:53-0400 BMI (Body Mass Index) 16.91 kg/m2 Ana Rosa Bustillo [facility] Work Phone: 03-05-2017 16:53-0400 BP Diastolic 68 mm[Hg] Ana Rosa Bustillo [facility] Work Phone: 03-05-2017 16:53-0400 BP Systolic 120 mm[Hg] Ana Rosa Bustillo [facility] Work Phone: 03-05-2017 16:53-0400 Height 167.64 cm Ana Rosa Bustillo [employer] [facility] Work Phone: 03-05-2017 16:53-0400 Pulse (Heart Rate) 92 /min Ana Rosa Bustillo [employer] [facility] Work Phone: 03-05-2017 16:53-0400 Pulse Oximetry 98 % Ana Rosa Bustillo LPN [facility] Work Phone: 03-05-2017 16:53-0400 Respiratory Rate 16 /min Ana Rosa Bustillo LPN [facility] Work Phone: 03-05-2017 16:53-0400 Weight 47.54 kg Ana Rosa Bustillo LPN [facility] Work Phone: 02-18-2017 14:22-0400 Body Temperature 97.9 [degF] Ana Rosa Bustillo LPN [facility] Work Phone: 02-18-2017 14:040 BSA (Body Surface Area) 1.53 m2 Ana Rosa Bustillo LPN [facility] Work Phone: 02-18-2017 14:040 Height 167.64 cm Ana Rosa Bustillo LPN [facility] Work Phone: 02-18-2017 14:040 Weight 48.53 kg Ana Rosa Bustillo [employer] SUPERVISOR [facility] Work Phone: Encounters Encounter Date Encounter Type Care Provider Facility Start: 03-22-2025 End: 03-22-2025 Kayleigh BHARDWAJ -[facility] Work Phone: Start: 03-22-2025 End: 03-22-[address] Christy Huerta DO Work Phone: [facility] Work Phone: Start: 03-10-2025 ambulatory Bird Lam lity:[facility] Start: 01-27-2025 End: 01-27-2025 Brenda ARGUETA -[facility] Work Phone: Start: 01-27-2025 End: 01-27-2025 ambulatory Bird Lujan Facility:[facility] Start: 01-13-2025 Encounter for other preprocedural examination Favian Houck [facility] Start: 01-11-2025 End: 01-11-2025 Kayleigh BHARDWAJ -[facility] Work Phone: Start: 01-11-2025 End: 01-11-2025 ambulatory Bird Lujan Facility:[facility] Start: 01-11-2025 End: 01-11-[address] Bird Lujan MD Work Phone: [facility] Work Phone: Start: 01-11-2025 End: 01-11-2025 Jeanna ARGUETA -Cat Luis, [facility] Work Phone: Start: 01-11-2025 End: 01-11-2025 ambulatory Jeannawing Davis LANDSCAPE CREW MEMBER Facility:[facility] Start: 01-06-2025 ambulatory Bird Lujan Faci lity:[facility] Start: 01-06-2025 Dr. He Cat MD -[facility] Work Phone: Start: 01-05-2025 Dr. He Cat MD -[facility] Work Phone: Start: 01-05-2025 Dr. Terrance Alva DO -[facility] -PMW Start: 01-04-2025 Dr. He Cat MD -[facility] Work Phone: Start: 01-03-2025 End: 01-06-2025 [facility] Start: 01-03-2025 ambulatory Bird Jonesi lity:[facility] Start: 01-03-2025 End: 01-06-2025 Dr. He Cat MD -[facility] Work Phone: Start: 12-30-2024 End: 12-30-2024 Telephone encounter Kidney Txp Coordinators Work Phone: [facility] Comment on above: Referral - Kidney Tx p Start: 12-30-2024 Encounter for other preprocedural examination Kayleigh Payne [facility] Start: 12-29-2024 End: 12-29-2024 Telephone encounter Kidney Txp Coordinators Work Phone: [facility] Comment on above: Referral - Kidney Tx p Start: 12-28-2024 ambulatory Bird Jonesi lity:[facility] Start: 12-28-2024 Dr. Favian Sinclair MD -[facility] -[facility] Start: 12-28-2024 End: 12-28-2024 Dr. Favian Sinclair MD -[facility] Start: 12-28-2024 End: 12-28-2024 ambulatory Bird Lujan Facility:[facility] Start: 12-24-2024 End: 12-24-2024 Telephone encounter Kidney Txp Coordinators Work Phone: [facility] Comment on above: Referral - Kidney Tx p Start: 12-17-2024 ambulatory Reynaldomarco Lujan Faci lity:[facility] Start: 12-17-2024 End: 12-17-2024 Dr. Tee Aguirre MD -[facility] Start: 12-16-2024 End: 12-16-2024 Mynor Anthony [employer]ANDSCAPE CREW MEMBER-C -[facility] Work Phone: Start: 12-16-2024 End: 12-17-2024 [facility] Start: 12-02-2024 End: 12-02-2024 Dr. Favian Sinclair MD -[facility] Work Phone: Start: 12-02-2024 End: 12-02-2024 ambulatory Hematite Tai Facility:[facility] Start: 11-20-2024 End: 11-20-2024 Dr. Justin Parisi DO -Emergency Department Work Phone: Start: 11-20-2024 End: 11-20-2024 [facility] Start: 11-04-2024 End: 11-04-2024 Emergency department patient visit [facility] Facility:[facility] Start: 11-04-2024 End: 11-04-2024 ED PHYSICIAN PROVIDER -Emergency Departm ent Work Phone: Start: 11-04-2024 End: 11-04-2024 ambulatory Hematite Marlonikolay Facility:[facility] Start: 11-02-2024 ambulatory Christmarco Sellersnikolay Faci lity:[facility] Start: 11-02-2024 End: 11-02-2024 Dr. Favian Sinclair MD -[facility]-S Start: 11-02-2024 End: 11-02-2024 [facility] Start: 10-16-2024 End: 10-16-2024 Jeanna Davis NP-C -Cat Scan, [facility] Work Phone: Start: 10-16-2024 End: 10-16-2024 ambulatory Jeanna Davis NP Facility:[facility] Start: 10-07-2024 End: 10-07-2024 Brenda Medrano [employer] CREW MEMBER-C -[facility] Work Phone: Start: 10-07-2024 End: 10-07-2024 ambulatory Bird Lujan Facility:[facility] Start: 08-31-2024 End: 08-31-2024 ambulatory Tami Alfredo WINDOWS APPLICATION ADMINISTRATOR - PARENT AIDE Work Phone: [facility] Start: 08-31-2024 End: 08-31-2024 Patient encounter procedure Tami Alfredo WINDOWS APPLICATION ADMINISTRATOR - PARENT AIDE Work Phone: [facility] Comment on above: Chronic respiratory failure with hypoxia and hypercapnia (HCC) [J96.11, J96.12] (Primary Dx); Centrilobular emphysema (HCC) [J43.2]; Other dysphagia [R13.19]; Hx of bacterial pneumonia [Z87.01] Start: 08-27-2024 End: 08-27-2024 ambulatory Tami Alfredo WINDOWS APPLICATION ADMINISTRATOR - PARENT AIDE Work Phone: [facility] Start: 08-27-2024 End: 08-27-2024 Patient encounter procedure Tami GuerraUriel Alfredo WINDOWS APPLICATION ADMINISTRATOR - PARENT AIDE Work Phone: [facility] Comment on above: Chronic respiratory failure with hypoxia and hypercapnia (HCC) [J96.11, J96.12] (Primary Dx); Centrilobular emphysema (HCC) [J43.2]; History of recent pneumonia [Z87.01]; Other dysphagia [R13.19] Start: 08-25-2024 End: 08-25-2024 ambulatory Tami Alfredo WINDOWS APPLICATION ADMINISTRATOR - PARENT AIDE Work Phone: [facility] Start: 08-25-2024 End: 08-25-2024 Patient encounter procedure Tami Alfredo WINDOWS APPLICATION ADMINISTRATOR - PARENT AIDE Work Phone: [facility] Comment on above: Chronic respiratory failure with hypoxia and hypercapnia (HCC) [J96.11, J96.12] (Primary Dx); Centrilobular emphysema (HCC) [J43.2]; Bilateral pleural effusion [J90]; Hx of bacterial pneumonia [Z87.01]; Cigarette nicotine dependence without complication [F17.210] Start: 08-13-2024 End: 08-13-2024 ambulatory ELIZABETH TYLER [facility] Start: 08-12-2024 End: 08-24-2024 Evaluation and management of inpatient Lucina Galvan DO Work Phone: [facility] Acute Care of the Elderly MARANDA 6W Start: 08-11-2024 End: 08-11-2024 ambulatory ELIESER SOLIS [facility] Start: 08-11-2024 End: 11-10-2024 Subsequent hospital visit by physician Elieser Solis MD Work Phone: [facility] Comment on above: SDH (subdural hemato ma) (HCC) SDH (subdural hemato ma) (HCC) (Primary Dx) Start: 08-10-2024 End: 08-10-2024 ambulatory MADELINE KENDALL [facility] Start: 07-28-2024 End: 07-28-2024 ambulatory TORITO [facility] Start: 07-27-2024 End: 07-29-2024 ambulatory TORITO [facility] Start: 07-26-2024 End: 08-10-2024 Evaluation and management of inpatient Colin Peoples MD Work Phone: [facility] Trauma Neuro Progressive Care Unit PCU 3W Start: 07-24-2024 End: 07-24-2024 ambulatory Saroj Lemos Facility:[facility] Start: 07-23-2024 ambulatory Baldo Jones ility:[facility] Start: 07-23-2024 End: 07-26-2024 Evaluation and management of inpatient Favian Nicholas Facility:[facility] Start: 07-13-2024 ambulatory Christy Huerta Facility: [facility] Start: 07-01-2024 End: 07-01-2024 ambulatory Bird Lujan Facility:[facility] Start: 05-20-2024 End: 05-20-2024 ambulatory Brenda Medrano Facility:[facility] Start: 05-05-2024 End: 05-05-2024 ambulatory Bird Lujan Facility:[facility] Start: 05-05-2024 End: 05-05-2024 ambulatory Jeanna Davis NP Facility:[facility] Start: 04-21-2024 End: 04-21-2024 ambulatory Christy Huerta Facility:[facility] Start: 04-14-2024 End: 04-15-2024 Emergency department patient visit Kalia Baeza Facility:[facility] Start: 04-14-2024 End: 04-14-2024 ambulatory Bird Lujan Facility:[facility] Start: 04-06-2024 ambulatory Bird Lujan Faci lity:[facility] Start: 03-02-2024 End: 03-02-[address] Bird Lujan Work Phone: [facility] Work Phone: Start: 03-02-2024 End: 03-02-[address] Bird Lujan Work Phone: [facility]-Cardiovascula r Services Work Phone: Start: 02-05-2024 End: 02-05-[address] Sin Lujan Work Phone: [facility]-Pulmonary Medicine [facility] Work Phone: Start: 02-02-2024 End: 02-02-[address] Sin Lujan Work Phone: [facility] Work Phone: Start: 02-02-2024 End: 02-02-[address] Sin Lujan Work Phone: [facility] Work Phone: Start: 01-15-2024 End: 01-15-[address] Sin Lujan Work Phone: [facility] Work Phone: Start: 01-15-2024 End: 01-15-[address] Sin Lujan Work Phone: [facility]-Laboratory, Phy Office 3rd Flr Start: 12-03-2023 End: 12-03-[address] Sin Lujan Work Phone: [facility] Work Phone: Start: 11-18-2023 End: 11-18-[address] Sin Lujan Work Phone: [facility] Work Phone: Start: 11-18-2023 End: 11-18-[address] Sin Lujan Work Phone: [facility] Work Phone: Start: 10-29-2023 End: 10-29-[address] Sin Lujan Work Phone: [facility] Work Phone: Start: 10-29-2023 End: 10-29-[address] Sin Lujan Work Phone: [facility]-Laboratory, Specimen Work Phone: Start: 10-29-2023 End: 10-29-[address] Sin Lujan Work Phone: [facility]-Pulmonary Medicine [facility] Work Phone: Start: 10-20-2023 End: 10-20-[address] Sin Lujan Work Phone: [facility] Work Phone: Start: 10-20-2023 End: 10-20-[address] Sin Lujan Work Phone: [facility], [facility] Work Phone: Start: 10-13-2023 End: 10-13-[address] Sin Lujan Work Phone: [facility] Work Phone: Start: 10-13-2023 End: 10-13-[address] [facility] Start: 10-09-2023 End: 10-09-[address] Sin Lujan Work Phone: [facility] Work Phone: Start: 10-09-2023 End: 10-09-2023 Patient encounter procedure L[employer]SCAPE CREW MEMBER-C Jeanna Davis LANDSCAPE CREW MEMBER Work Phone: [facility]-Laboratory, y Office 3rd Flr Start: 10-06-2023 End: 10-06-2023 ambulatory LANDSCAPE CREW MEMBER-C Jeanna Davis LANDSCAPE CREW MEMBER Work Phone: [facility] Work Phone: Start: 10-06-2023 End: 10-06-2023 Patient encounter procedure LANDSCAPE CREW MEMBER-C Jeanna Davis LANDSCAPE CREW MEMBER Work Phone: [facility]-Laboratory, y Office 3rd Flr Start: 08-06-2023 End: 08-06-2023 Patient encounter procedure LANDSCAPE CREW MEMBER-C Jeanna Davis LANDSCAPE CREW MEMBER Work Phone: [facility], [facility] Work Phone: Start: 07-14-2023 End: 07-14-2023 Patient encounter procedure LANDSCAPE CREW MEMBER-C Jeanna Davis LANDSCAPE CREW MEMBER Work Phone: [facility]ology Work Phone: Start: 06-25-2023 End: 06-25-2023 Patient encounter procedure LANDSCAPE CREW MEMBER-C Jeanna Davis LANDSCAPE CREW MEMBER Work Phone: [facility]-Pulmonary Medicine [facility] Work Phone: Start: 06-19-2023 End: 06-19-[address] Sin Lujan Work Phone: [facility] Work Phone: Start: 06-19-2023 End: 06-19-[address] Sin Lujan Work Phone: [facility], [facility] [address] [facility] Start: 06-12-2023 Non-patient / Non-visit Dr. Aashish Lujan Work Phone: [facility] Start: 06-12-2023 End: 06-12-[address] Sin Lujan Work Phone: [facility]-Pulmonary Services/Neurology Work Phone: Start: 06-02-2023 End: 06-02-[address] Sin Lujan Work Phone: [facility] Work Phone: Start: 06-02-2023 End: 06-02-[address] Sin Lujan Work Phone: [facility] Work Phone: Start: 05-20-2023 Non-patient / Non-visit Dr. Aashish Lujan Work Phone: [facility] Start: 05-19-2023 End: 05-19-[address] Sin Lujan Work Phone: [facility] Work Phone: Start: 05-19-2023 End: 05-19-[address] Sin Lujan Work Phone: [facility]-Pulmonary Services/Neurology Work Phone: Start: 04-09-2023 End: 04-09-[address] Sin Lujan Work Phone: [facility] Work Phone: Start: 03-17-2023 End: 03-17-[address] Sin Lujan Work Phone: [facility]-Laboratory, Phy Office 3rd Flr Start: 03-06-2023 Non-patient / Non-visit Dr. Aashish Lujan Work Phone: [facility] Work Phone: Start: 02-28-2023 Non-patient / Non-visit Dr. Aashish Lujan Work Phone: [facility] Start: 02-27-2023 Non-patient / Non-visit Dr. Aashish Lujan Work Phone: [facility] Start: 02-27-2023 End: 02-27-[address] Sin Lujan Work Phone: [facility] Work Phone: Start: 02-27-2023 End: 02-27-[address] Sin Lujan Work Phone: [facility]-Cardiovascula r Services Start: 02-26-2023 End: 02-26-[address] Sin Lujan Work Phone: [facility] Work Phone: Start: 02-26-2023 End: 02-26-[address] Sin Lujan Work Phone: [facility]-Laboratory Start: 02-17-2023 End: 02-17-[address] Sin Lujan Work Phone: [facility]-Pulmonary Medicine [facility] Start: 01-01-2023 End: 01-01-[address] Sin Lujan Work Phone: [facility] Start: 10-11-2022 End: 10-11-[address] Sin Lujan Work Phone: [facility] Work Phone: Start: 10-11-2022 End: 10-11-[address] Sin Lujan Work Phone: [facility] Start: 09-05-2022 End: 09-05-[address] Sin Lujan Work Phone: [facility]-Pulmonary Medicine [facility] Start: 08-05-2022 Non-patient / Non-visit Dr. Aashish Lujan Work Phone: [facility] Start: 07-31-2022 End: 07-31-[address] Sin Lujan Work Phone: [facility]-Pulmonary Services/Neurology Start: 07-29-2022 Non-patient / Non-visit Dr. Aashish Lujan Work Phone: [facility] Start: 07-29-2022 End: 07-29-[address] Sin uLjan Work Phone: [facility] Work Phone: Start: 07-29-2022 End: 07-29-[address] Sin Lujan Work Phone: [facility]-Pulmonary Services/Neurology Start: 07-04-2022 End: 07-04-[address] Sin Lujan Work Phone: [facility]inology Start: 06-09-2022 Chart Update No PCP None [facility] Work Phone: Start: 05-29-2022 Chart Update No PCP None [facility] Work Phone: Start: 05-29-2022 End: 05-29-[address] Sin Lujan Work Phone: [facility] Start: 05-28-2022 Patient encounter procedure No PCP None [facility] [place] [address] Work Phone: Start: 05-13-2022 End: 05-13-[address] [facility] Lu[facility] Start: 05-02-2022 End: 05-02-[address] Sin Lujan Work Phone: [facility]-Laboratory Start: 02-21-2022 End: 02-21-[address] Sin Lu[facility] Start: 02-18-2022 End: 02-18-[address] Sin Lujan Work Phone: [facility] Start: 02-08-2022 End: 02-08-[address] [facility] Lu[facility] Start: 01-10-2022 End: 01-10-[address] Sin Lujan Work Phone: [facility] Start: 12-24-2021 End: 12-24-[address] Sin Ljuan [facility] Start: 12-19-2021 End: 12-19-[address] Sin Lujan Work Phone: [facility] Patient encounter status No PCP None [id number]N [place] [address] Work Phone: Procedures Date Procedure [...] 08-17-2024 Glucose quantitative blood xcpt reagent strip Keamr Adames DO Work Phone: Start: 08-17-2024 Glucose [...] 08-13-2024 Urinalysis complete panel - Urine Janell Booker MD Work Phone: Start: 08-13-2024 Antibody identificat [...] on above: Performed By: #### L [id number] ####Manufacturing Helper: MARY SOTELO ([id number])[facility] ([facility])[address] [place] [address] Start: 08-12-2024 Blood typing serologic abo April [...] ast 12 lds i&r only Sapphire Bianchi YANDELFamilybuilder Work Phone: Start: 08-11-2024 Ct head/brain w/o co ntrast material Elieser Solis MD Work Phone: Start: 08-10-2024 Glucose quantitative blood xcpt reagent strip Fly Gove DO Work Phone: Start: 08-10-2024 Glucose quantitative blood xcpt reagent strip Fly Gove DO Work Phone: Start: 08-10-2024 End: 08-10-2024 Glucose quantitative blood xcpt reagent strip Fly Gove DO Work Phone: Start: 08-10-2024 End: 08-10-2024 Glucose quantitative blood xcpt reagent strip Fly Holli DO Work Phone: Start: 08-10-2024 Basic metabolic pane l calcium total May Sherice Alma Deliashamirmarium DO Work Phone: Start: 08-10-2024 Complement antigen e ach component Saroj Gaffney MD Work Phone: Start: 08-09-2024 Glucose quantitative blood xcpt reagent strip Fly Gove DO Work Phone: Start: 08-09-2024 End: 08-09-2024 Creatinine other source Saroj Gaffney MD Work Phone: Start: 08-09-2024 Urnls dip stick/tabl et reagent auto microscopy Saroj Gaffney MD Work Phone: Start: 08-09-2024 Glucose quantitative blood xcpt reagent strip Fly Holli DO Work Phone: Start: 08-09-2024 Glucose quantitative blood xcpt reagent strip Fly Gove DO Work Phone: Start: 08-09-2024 Glucose quantitative blood xcpt reagent strip Fly Gove DO Work Phone: Start: 08-09-2024 End: 08-09-2024 [...] on above: Performed By: #### L [id number] ####Manufacturing Helper: MARY SOTELO ([id number])[facility] ([facility])[address] [place] [address] Start: 08-06-2024 Blood typing serologic abo Jomar Snider MD Work Phone: Start: 08-06-2024 Basic metabolic pane l calcium total May Sherice Reshmairnyder DO Work Phone: Start: 08-05-2024 Glucose quantitative [...] Radiologic exam swal low function contrast study Saorj Sadler MD Work Phone: Start: 08-04-2024 Glucose quantitative blood xcpt reagent strip Saroj Sadler MD Work Phone: Start: 08-04-2024 Glucose quantitative blood xcpt reagent strip Fly Gove DO Work Phone: Start: 08-04-2024 Basic metabolic pane l calcium total May Sherice Reamsnyder DO Work Phone: Start: 08-03-2024 Glucose quantitative blood xcpt reagent strip Fly Gove DO Work Phone: Start: 08-03-2024 Glucose quantitative blood xcpt reagent strip Fly Gove DO Work Phone: Start: 08-03-2024 Glucose quantitative [...] on above: Performed By: #### L [id number] ####Manufacturing Helper: MARY SOTELO ([id number])[facility] ([address] Start: 07-31-2024 ABO and Rh group [...] comb ination ph pco2 po2 co2 hco3 Tenriism Parkinson DO Start: 07-30-2024 Renal function panel [...] Mari Diane DO Work Phone: Start: 07-28-2024 Basic [...] Start: 07-27-2024 End: 07-27-2024 Comprehensive metabolic [facility] Work Phone: Start: 07-27-2024 Manual Differential panel - Blood Kena Heath DO Work Phone: Start: 07-27-2024 End: 07-27-2024 Smr prim src gram/giemsa stain bct fungi/cell [facility] Momin [facility] Work Phone: Start: 07-27-2024 [...] comb ination ph pco2 po2 co2 hco3 [facility] Sanchezag DO Work Phone: Start: 07-26-2024 Assay of osmolality blood [facility] Work Phone: Start: 07-26-2024 Artl [...] above: Performed By: #### B , BTS, [id number] ####[facility] [id number] [place], [place], [address] Start: 02-02-2024 CT of chest without contrast Dr. Sin Lujan Work Phone: Start: 10-29-2023 Investigation of transfusion reaction Dr. Sin Lujan Work Phone: Start: 10-29-2023 Res[address] microbia l culture Dr. Sin Lujan Work Phone: Start: 10-20-[address] Aashish Lujan Work Phone: Start: 10-13-[address] Suraj Lujan Work Phone: Start: 08-06-2023 CT of chest without contrast LANDSCAPE CREW MEMBERPaddy Davis NP Work Phone: Start: 06-02-2023 CT [...] Lujan Work Phone: Start: 04-02-2012 Colonoscopy Kidney Bottom Saw Operator rdinators Work Phone: Start: 12-26-2009 Lipid 1996 panel - S dottie or Plasma Kidney Coordinators Work Phone: Appendectomy No PCP None Hysterectomy No PCP None Plan of Treatment Date Care Activity Detail Author Start: 2034 RSV Vaccine (1 - 1-dose 75+ series) RSV Vaccine (1 - 1-dose 75+ series) [facility] Start: 08-12-2029 Cyanocobalamin vitamin b-12 Vitamin B-12 [facility] Start: 08-12-2029 [facility] Start: 09-04-2027 Diabetes Screening Diabetes Screening [facility] Start: 07-08-2027 DTaP/Tdap/Td Vaccines (3 - Td or Tdap) DTaP/Tdap/Td Vaccines (3 - Td or Tdap) [facility] Start: 07-08-2027 Urine microalbumin profile DTaP,Tdap,Td Vaccine (3 - Td or Tdap) [facility] Start: 07-08-2027 [facility] Start: 01-31-2026 Pneumococcal Vaccine: 50+ Years (3 of 3 - PCV20 or PCV21) Pneumococcal Vaccine: 50+ Years (3 of 3 - PCV20 or PCV21) [facility] Start: 09-20-2025 Pneumococcal Vaccine: Pediatrics (0 to 5 Years) and At-Risk Patients (6 to 64 Years) (3 of 3 - PPSV23 or PCV20) Pneumococcal Vaccine: Pediatrics (0 to 5 Years) and At-Risk Patients (6 to 64 Years) (3 of 3 - PPSV23 or PCV20) [facility] Start: 09-20-2025 [facility] Start: 09-06-2025 Diabetes: Estimated Glomerular Filtration Rate for Kidney Health Diabetes: Estimated Glomerular Filtration Rate for Kidney Health [facility] Start: 08-30-2025 Diabetes: Estimated Glomerular Filtration Rate for Kidney Health Diabetes: Estimated Glomerular Filtration Rate for Kidney Health [facility] Start: 08-25-2025 Diabetes: Estimated Glomerular Filtration Rate for Kidney Health Diabetes: Estimated Glomerular Filtration Rate for Kidney Health [facility] Start: 08-24-2025 [facility] Start: 08-11-2025 Diabetes: Estimated Glomerular Filtration Rate for [facility]ney Health Diabetes: Estimated Glomerular Filtration Rate for [facility] Health [facility] Start: 08-10-2025 [facility] Start: 07-26-2025 Hemoglobin A1c measurement [facility] Start: 07-26-2025 Thyroid stimulating hormone measurement [facility] Start: 01-06-2025 Patient discharge [facility] Start: 01-06-2025 Referral to occupational therapist [facility] Start: 01-06-2025 Referral to service [facility] Start: 01-05-2025 [facility] Start: 01-05-2025 Care of hemodialysis equipment [facility] Start: 01-05-2025 Hemodialysis care [facility] Start: 01-05-2025 [facility] Start: 01-05-2025 [facility] Start: 01-04-2025 End: 01-04-2025 [facility] Start: 01-04-2025 Care regimes management [facility] Start: 01-04-2025 Notification of physician [facility] Start: 01-04-2025 Continuous pulse oximetry [facility] Start: 01-04-2025 Care of hemodialysis equipment [facility] Start: 01-04-2025 Hemodialysis care [facility] Start: 01-04-2025 [facility] Start: 01-04-2025 Application of intermittent pneumatic compression device [facility] Start: 01-04-2025 End: 01-04-2025 [facility] Start: 01-04-2025 Notification of physician [facility] Start: 01-04-2025 Consultation for treatment [facility] Start: 01-04-2025 Following clinical pathway protocol [facility] Start: 01-04-2025 Ambulation without limitation [facility] Start: 01-04-2025 Assessment of risk of venous thromboembolism [facility] Start: 01-04-2025 Inhalation therapy procedure [facility] Start: 01-04-2025 Insertion of catheter into peripheral vein [facility] Start: 01-04-2025 Measuring intake and output [facility] Start: 01-04-2025 Oxygen therapy [facility] Start: 01-04-2025 Providing care according to standard [facility] Start: 01-04-2025 Referral to machine stuffer automatic [facility] Start: 01-04-2025 [facility] Start: 01-04-2025 Care regimes management [facility] Start: 01-04-2025 Dual pressure spontaneous ventilation support [facility] Start: 01-04-2025 Patient referral to dietitian [facility] Start: 01-03-2025 Admission procedure [facility] Start: 12-28-2024 Anesthesia vascular shunt/shunt revision [facility] Start: 12-28-2024 Arteriovenous anastomosis open direct [facility] Start: 12-28-2024 Patient discharge [facility] Start: 2024 Advance Directive Discussion Advance Directive Discussion [facility] Start: 2024 Screening for osteoporosis Bone Density Screening [facility] Start: 11-20-2024 [facility] Start: 11-04-2024 [facility] Start: 08-13-2024 End: 08-13-2024 ambulatory [facility] Start: 08-13-2024 End: 08-13-2024 Patient encounter procedure 08/13/2024 11:15 AM EDT Office Visit [facility] [place] [address] [place] [address] [phone] Romero Wright MD [address] [place], [place] [address] [facility] Start: 08-10-2024 End: 07-27-2025 CT Head WO contrast [facility] Work Phone: Start: 07-04-2024 Covid-19 Vaccine ( season) Covid-19 Vaccine ( season) [facility] Start: 07-04-2024 COVID-19 Vaccine ( season) COVID-19 Vaccine ( season) [facility] Start: 07-04-2024 COVID-19 Vaccine ( season) COVID-19 Vaccine ( season) [facility] Start: 07-04-2024 Influenza vaccination Influenza Vaccine (#1) [facility] Start: 07-04-2024 [facility] Start: 10-13-2023 [facility] Start: 10-13-2023 Bacteria identified in Urine by Culture [facility] Start: 10-23-2022 Shingrix Vaccine (2 of 2) Shingrix Vaccine (2 of 2) [facility] Start: 10-23-2022 Zoster Vaccines (2 of 2) Zoster Vaccines (2 of 2) [facility] Start: 10-23-2022 [facility] Start: 07-04-2022 Patient referral [facility] Work Phone: Start: 04-02-2022 Screening for malignant neoplasm of colon [facility] Start: 2019 RSV Immunization aged 60 or older (1 - 1-dose 60+ series) RSV Immunization aged 60 or older (1 - 1-dose 60+ series) [facility] Start: 2019 RSV Immunization for Adults (1 - Risk 60-74 years 1-dose series) RSV Immunization for Adults (1 - Risk 60-74 years 1-dose series) [facility] Start: 2019 [facility] Start: 03-05-2017 End: 03-06-2017 *CMP Complete Metabolic Panel *CMP Complete Metabolic Panel [facility] Work Phone: Start: 03-05-2017 End: 03-06-2017 *Microalbumin, Creatine Ratio, rand urine *Microalbumin, Creatine Ratio, rand urine [facility] Work Phone: Start: 03-05-2017 End: 03-06-2017 HbA1c *HgA1C [facility] Work Phone: Start: 03-05-2017 End: [...] Phone: Start: 12-26-2014 Lipid panel Lipid Screening [facility] Start: 01-21-2013 End: 01-21-2013 *BMP *BMP [facility] Work Phone: Start: 01-21-2013 End: 01-21-2013 *CBC with Differential *CBC with Differential [facility] Work Phone: Start: 01-21-2013 End: 01-21-2013 *CDIF - Clostridium Diff. Toxin Stool *CDIF - Clostridium Diff. Toxin Stool [facility] Work Phone: Start: 01-21-2013 End: 01-21-2013 Erythrocyte sedimentation rate *Sedimentation Rate (ESR) [facility] Work Phone: Start: 01-21-2013 End: 01-21-2013 Helicobacter pylori IgG Ab [Units/volume] in Serum *Helicobacter pylori [facility] Work Phone: Start: 01-21-2013 End: 01-21-2013 PT-TMJ PT-TMJ Physical Therapy [facility], [address] [place] [address], [id number] [facility] Work Phone: Start: 12-27-2012 Diabetes Screening Diabetes Screening [facility] Start: 12-04-2012 Screening for malignant neoplasm of breast Mammogram Screening [facility] Start: 2009 Pneumococcal Vaccine: 50+ (1 of 1 - PCV) Pneumococcal Vaccine: 50+ (1 of 1 - PCV) [facility] Start: 2009 Shingrix Vaccine (1 of 2) Shingrix Vaccine (1 of 2) [facility] Start: 04-30-2005 Urine microalbumin profile DTaP,Tdap,Td Vaccine (2 - Tdap) [facility] Start: 2004 Screening for malignant neoplasm of colon [facility] Start: 1999 Screening for malignant neoplasm of breast [facility] Start: 1989 Screening for malignant neoplasm of cervix [facility] Start: 1980 Screening for malignant neoplasm of cervix [facility] Start: 1978 Hepatitis A Vaccines (1 of 2 - Risk 2-dose series) Hepatitis A Vaccines (1 of 2 - Risk 2-dose series) [facility] Start: 1977 Anxiety Screening Anxiety Screening [facility] Start: 1977 Depression Screening Depression Screening [facility] Start: 1977 Diabetes: Urine Albumin-Creatinine Ratio for Kidney Health Diabetes: Urine Albumin-Creatinine Ratio for Kidney Health [facility] Start: 1977 Hepatitis C screening Hepatitis C Screening [facility] Start: 1977 HIV screening HIV Screening [facility] Start: 1977 [facility] Start: 1971 Depression Monitoring Depression Monitoring [facility] Start: 1971 [facility] Start: 1969 Diabetic foot examination [facility] Start: 1969 Glaucoma screening [facility] Start: 1969 Preventive dental service [facility] Start: 1960 MMR Vaccines (1 of 1 - Standard series) MMR Vaccines (1 of 1 - Standard series) [facility] Start: 1960 [facility] Start: 1959 Annual wellness visit [facility] Start: 1959 Cyanocobalamin vitamin b-12 Vitamin B-12 [facility] Start: 1959 Diabetes: Celiac Disease Screening Diabetes: Celiac Disease Screening [facility] Start: 1959 Lipid panel [facility] Start: 1959 Screening for malignant neoplasm of colon [facility] Start: 1959 [facility] End: 08-09-2024 Bacteria identified in Urine by Culture [facility] [employer] Work Phone: End: 08-20-2024 Blood gases, arterial measurement [facility] End: 08-20-2024 Blood gases, venous measurement [facility] [employer] Work Phone: CT Chest [facility] CT Chest W contrast IV [facility] End: 08-05-2024 ECG 12 lead [facility] Work Phone: Exercise tolerance test [facility] Lipid 1995 panel - S dottie or Plasma [facility] 1995 panel - S dottie or Plasma [facility] Measurement of respiratory function [facility] Patient Education [facility] Work Phone: Patient referral [facility] Work Phone: Positron emission tomography with computed tomography [facility] Vitamin D, 25-hydrox y measurement [facility] Immunizations Immunization Date Immunization Notes Care Provider Jean Carlos [facility] 10-28-2024 Pneumococcal Vaccine PCV20 (Prevnar 20) Dr. Bird Lujan MD Work Phone: [facility] 10-28-[address] Bird Lujan MD Work Phone: [facility] 09-27-2024 Pfizer Covid-19 (Comirnaty) Dr. Bird Lujan MD Work Phone: [facility] 07-24-2024 Influenza, seasonal, injectable, preservative free; Translations: [Influenza, Split Virus, Trivalent, PF] Tami Alfredo WINDOWS APPLICATION ADMINISTRATOR - PARENT AIDE Work Phone: [facility] 07-24-2024 Lucina Galvan DO Work Phone: [facility] 08-28-2022 influenza, injectabl e, quadrivalent, contains preservative Lucina Kilway-Kluever DO Work Phone: [facility] 08-28-2022 influenza, injectabl e, quadrivalent, preservative free Dr. Bird Lujan MD Work Phone: [facility] 08-28-2022 zoster vaccine recombinant [facility] DO Work Phone: [facility] 08-28-2022 influenza virus vaccine, unspecified formulation [facility] Work Phone: [facility] 03-22-2021 Moderna COVID-19 Vaccine 100 MCG/0.5ML Intramuscular Suspension No PCP None [facility] 02-22-2021 Moderna COVID-19 Vaccine 100 MCG/0.5ML Intramuscular Suspension No PCP None [facility] 01-31-2021 pneumococcal conjuga te vaccine, 13 valent No PCP None HH-Azpjcmmuci-HGF [facility] [address] Work Phone: 09-20-2020 pneumococcal polysaccharide vaccine, [address] Sin Lujan Work Phone: [facility] 09-20-2020 pneumococcal vaccine , unspecified formulation Dr. Sin Lujan Work Phone: [facility] Work Phone: 08-28-2020 influenza, injectabl e, quadrivalent, preservative free [employer] [facility] Jeanna Davis NP Work Phone: [facility] 08-28-2020 influenza, seasonal, injectable Dr. Sin Lujan Work Phone: [facility] 08-28-2020 [facility] DO Work Phone: [facility] 08-12-2018 influenza, injectabl e, quadrivalent, preservative free Dr. Bird Lujan MD Work Phone: [facility] 08-12-2018 influenza, seasonal, injectable No PCP None YV-Qageuuopiz-RDM [place] [address] Work Phone: 08-11-[address] Sin Lujan Work Phone: [facility] 08-11-2017 Influenza, seasonal, injectable, preservative free Tami Alfredo WINDOWS APPLICATION ADMINISTRATOR - PARENT AIDE Work Phone: [facility] 08-11-2017 [facility] DO Work Phone: [facility] 07-08-2017 influenza, injectabl e, quadrivalent, contains preservative No PCP None TU-Iaihoitaet-YOX [facility] Work Phone: 07-08-2017 influenza, injectabl e, quadrivalent, preservative free Dr. Bird Lujan MD Work Phone: [facility] 07-08-2017 tetanus toxoid, redu juliette diphtheria toxoid, and acellular pertussis vaccine, adsorbed No PCP None AI-Rxnmszcaqf-YGE [facility] Work Phone: 08-12-2016 pneumococcal polysaccharide vaccine, 23 valent No PCP None [facility] [address] Work Phone: 07-15-2016 influenza, injectabl e, quadrivalent, preservative free [employer] MEMBER[employer]addy Davis NP Work Phone: [facility] 07-15-2016 influenza, seasonal, injectable Dr. Sin Lujan Work Phone: [facility] 08-07-2015 influenza, injectabl e, quadrivalent, preservative free Dr. Bird Lujan MD Work Phone: [facility] 08-07-2015 influenza, seasonal, injectable No PCP None [facility] [address] Work Phone: 08-03-[address] Sin Lujan Work Phone: [facility] 08-03-2014 Influenza, seasonal, injectable, preservative free Tami Alfredo WINDOWS APPLICATION ADMINISTRATOR - PARENT AIDE Work Phone: [facility] 08-03-2014 [facility] DO Work Phone: [facility] 04-30-1995 diphtheria and tetan us toxoids, adsorbed for pediatric use [facility] Work Phone: [facility] [employer] Payers Date Payer Category Payer Unknown [id number] 2024 Private Health Insurance [facility] [id number] 2024 Medicare [id number] 2024 Commercial Managed C [facility] - HMO [id number] 2024 Unknown 2024 Self-pay [id number] 2023 Unknown [id number] 2011 Private Health Insurance [id number] Unknown [id number] Unknown [facility] [id number] Unknown [id number] ..840.1.821141.3.579.2. 462 Unknown [id number] 12.19.830.1.061870.3.579.2. 462 Unknown [id number] 2.16.840.1.156025.3.579.2. 462 Unknown [id number] 2.16.840.1.929850.3.579.2. 462 Unknown [id number] 2.16.840.1.154452.3.579.2. 462 Unknown [id number] 2.16.840.1.187334.3.579.2. 462 Unknown [id number] 2.16.840.1.574912.3.579.2. 462 Unknown [id number] 2.16.840.1.883107.3.579.2. 462 Unknown [id number] 2.16.840.1.347105.3.579.2. 462 Unknown [id number] 2.16.840.1.811867.3.579.2. 462 Unknown [id number] 2.16.840.1.716594.3.579.2. 462 Unknown [id number] 2.16.840.1.513147.3.579.2. 462 Unknown [id number] 2.16.840.1.340400.3.579.2. 462 Unknown [id number] 2.16.840.1.920642.3.579.2. 462 Unknown [id number] 2.16.840.1.456655.3.579.2. 462 Unknown [id number] 2.16.840.1.840759.3.579.2. 462 Unknown [id number] 2.16.840.1.959755.3.579.2. 462 Unknown [id number] 2.16.840.1.147957.3.579.2. 462 Unknown [id number] 2.16.840.1.170405.3.579.2. 462 Unknown [id number] 2.16.840.1.324885.3.579.2. 462 Unknown [id number] 2.16.840.1.058682.3.579.2. 462 Unknown [id number] 2.840.1.451928.3.579.2. 462 Unknown [id number] 2.840.1.592699.3.579.2. 462 Unknown [id number] 2.840.1.246840.3.579.2. 462 Unknown [id number] 2.840.1.189701.3.579.2. 462 Unknown [id number] 2.840.1.640885.3.579.2. 462 Unknown [id number] 2.840.1.986863.3.579.2. 462 Unknown [id number] 2.840.1.101719.3.579.2. 462 Unknown [id number] 2.840.1.137719.3.579.2. 462 Unknown [id number] 2.840.1.011385.3.579.2. 462 Unknown [id number] .840.1.818955.3.579.2. 462 Unknown [id number] 2.840.1.986305.3.579.2. 462 Unknown [id number] 2.840.1.990900.3.579.2. 462 Unknown [id number] 2.840.1.195322.3.579.2. 462 Unknown [id number] 2.840.1.986139.3.579.2. 462 Unknown [id number] .840.1.684491.3.579.2. 462 Unknown [id number] 2.840.1.048872.3.579.2. 462 Unknown [id number] 2.840.1.333248.3.579.2. 462 Unknown [id number] 2.840.1.848078.3.579.2. 462 Unknown [id number] 2.840.1.853074.3.579.2. 462 Unknown [id number] 2.16.840.1.298762.3.579.2. 462 Unknown [id number] 2.16.840.1.010187.3.579.2. 462 Social History Date Type Detail Facility Start: 01-10-2022 End: 07-14-2023 Tobacco smoking status FLIS Unknown if ever smoked [facility] Start: 08-26-2020 None [facility] Start: 08-26-2020 Spouse/ Signif icant Other [facility] Start: 08-29-2020 Cigarettes [facility] Start: 1960 Sex Assigned At Female W [facility] Start: 08-12-2024 End: 08-24-2024 Current smoker Current smoker [facility] Start: 1960 Sex assigned at S [facility] Start: 08-12-2024 End: 08-24-2024 Gender identity Not on file [facility] [employer] Start: 08-12-2024 [facility] [employer] Start: 08-12-2024 Tobacco use and exposure Smokeless tobacco non-user [facility] [employer] Has the [employer], or [employer] threatened to shut off services in your home in past 12Mo No [employer] How often to you hav e a drink containing alcohol? Never [facility] How many standard drinks containing alcohol do you have on a typical day? [facility] (I/We) worried belinda er (my/our) food would run out before (I/we) got money to buy more. Never true [employer] Start: 07-26-2024 End: 01-20-2025 Sex Female (finding) [facility] [employer] Start: 03-23-2009 End: 01-10-2025 Tobacco smoking status NHIS Ex-smoker [facility] End: 12-18-2009 History of tobacco use Current smoker [facility] End: 12-18-2009 History of tobacco use Cigarette Smoker [facility] Start: 04-02-2012 Alcoholic beverage intake Current non-drinker of alcohol (finding) [facility] Medical Equipment Procedure Code Equipment Code Equipment Origin al Text Equipment Identifier Dates Creation, AV fistula [id number] FDA Start: 12-28-2024 Creation, AV fistula [id number] FDA Start: 12-28-2024 Creation, AV fistula [id number] FDA Start: 12-28-2024 Blood Sugar Diagnostic (Freestyle [...] test blood sugar s 6-8 times daily [id number] Start: 03-23-2009 Goals Date Patient Goal Desired Activity /State Functional Status Date Assessment Result Facility 01-06-2025 Functional status Ambulates;Bathroom Priv ilege [facility] Work Phone: Mental Status Date Assessment Result Facility 01-06-2025 Cognitive function Voice/Name [facility] Work Phone: 12-28-2024 Cognitive function Sedated [facility] Work Phone: 12-28-2024 Cognitive function Voice/Name [facility] Work Phone: 11-20-2024 Cognitive function Awake;Alert;A ppropriate;Fol lows Commands [facility] Work Phone: Clinical Notes 05-20-2023 to 01-11-2025 Telephone Encounter - [place] James - 12/30/2024 11:00 AM ESTTelephone Encounter - [place] James - 12/30/2024 11:00 AM ESTTelephone Encounter - Otilia Portillo Tech - 12/29/2024 10:50 AM EST Note Date & Type Note Facility 01-11-2025 Radiology Diagnos tic study note [facility] 01-06-2025 Note [facility] 01-03-2025 Note [facility] 12-30-2024 Telephone encount er Note Called and spoke with the patient in regards to kidney transplant referral, she states she started the process with [facility], and would like to go through the process at that center, as one center is enough to go through testings, and appointments. Advised the patient if she changes her mind, provided her with our office phone number, referral ended, and she verbalized understanding. Montana James [facility] 12-30-2024 Miscellaneous Notes Formattin g of this note might be different from the original. Called and spoke with the patient in regards to kidney transplant referral, she states she started the process with [facility], and would like to go through the process at that center, as one center is enough to go through testings, and appointments. Advised the patient if she changes her mind, provided her with our office phone number, referral ended, and she verbalized understanding. Montana James documented in this encounter [facility] 12-29-2024 Telephone encount er Note I spoke with Lita at [facility] who confirmed the patients demographic information and confirmed that the phone number that we have on file for the patient is incorrect. The correct phone number is [phone]. [facility] 12-29-2024 Miscellaneous Notes Formattin g of this note might be different from the original. I spoke with Lita at [facility] who confirmed the patients demographic information and confirmed that the phone number that we have on file for the patient is incorrect. The correct phone number is [phone]. documented in this encounter [facility] 12-28-2024 Note [facility] 12-24-2024 Telephone encount er Note Called Sandy Deng without success regarding referral. Voicemail message was left for patient to call our office. [place] James [facility] 12-24-2024 Miscellaneous Notes Formattin g of this note might be different from the original. Called Sandy Deng without success regarding referral. Voicemail message was left for patient to call our office. [place] James documented in this encounter [facility] 12-02-2024 Evaluation note Diagnosis Onset Date Resolution ESRD (end stage renal disease) on dialysis chronic November 2:26pm Atherosclerosis of coronary artery of [place] heart without angina pectoris chronic December 16 [...] January 03, 2025 11:39pm Parapneumonic effusion acute [facility] 2024 11:39pm Pleural effusion on left acute [...] 27, 2025 8:40am Insulin pump titration chronic [facility] 2024 8:40am Osteoporosis chronic January 27, 2025 8:40am Presence of insulin pump chronic January 27, 2025 8:40am Vitamin D deficiency [facility] 2024 8:40am [employer] Work Phone: 1(853) 209-744012-05-2024 Evaluation note* Diagnosis Onset Date Resolution Status [...] 02 2:26pm Atherosclerosis of coronary artery of [place] heart without angina pectoris December 16, 2 [...] January 03, 2025 11:39pm Parapneumonic effusion acute [facility] 2024 11:39pm Pleural effusion on left acute January 03, 2025 11:39pm COPD exacerbation chronic January 032024 11:39pm DM type 1 (diabetes mellitus , type 1) chronic January 03, 2025 11:39pm Hypertension chronic January 03, 11:39pm Acute hyperkalemia resolved January 03, 2025 11:39pm Chronic hypoxemic respirator y failure resolved January 03, 2025 11:39pm AV fistula acute January 11 2:55pm [facility] Work Phone: 1(477) 116-943910-29-2024 History of Present illness Narrative* SYED Buck CNP - 08/31/2024 1:43 PM EDT Patient seen by me at [facility]. Complete documentation including history with assessment and plan were documented in [facility] EMR. This encounter is for billing only. documented in this [facility]10-25-2024 History of Present illness Narrative* SYED Buck CNP - 08/27/2024 1:11 PM EDT Patient seen by me at [facility]. Complete documentation including history with assessment and plan were documented in [facility] EMR. This encounter is for billing only. documented in this [facility]10-23-2024 History of Present illness Narrative* SYED Buck CNP - 08/25/2024 4:04 PM EDT Patient seen by me at [facility]. Complete documentation including history with assessment and plan were documented in [facility] EMR. This encounter is for billing only. documented in this [facility]10-22-2024 Miscellaneous Notes* Care Coordination - SAPNA Ibarra - 08/24/2024 2:22 PM EDT Requested to arrange transport back to [facility]. Met with patient and spouse- patient ok with ambulette. Set up for 3:30 with roundtrluly, lavern card accepted the trip. Cost provided to patient 51.80-59.80. Updated patient ,spouse-MOODY Garcia. Car Racer, Carmelina with [facility] and TCC. * Care Coordination - Kimberlee Valdovinos - 08/24/2024 12:45 PM EDT [facility] per T[facility] request. * Care Coordination - Jesi Bach RN - 08/24/2024 12:38 PM EDT Auth obtained for [facility]. SW messaged to set up transport, IT HELP DESK TECHNICIAN messaged to send orders and MAR. * [...] RN Outcome: Progressing * Care Coordination - Jesi Bach RN - 08/23/2024 1:[address] [facility] liaison Carmelina, will re-submit for MMO auth [...] EDT Care Management Progress Note Discharge Plan: [facility] This revenue enforcement collection agent was tasked to follow this patient through the weekend assisting with dischargeplanning. Chart was reviewed. [facility] [place] through secure chat to clarify auth status. Plan is to resubmit auth when patient is stable. Therapy see today request placed in [facility] for PT/OT updated notes to be [...] at baseline and stable to transfer to [facility]. PT/OT recommending IPR. Confirmed with Manager Sales Support Carmelina that Insurance Authorization started for [facility] this am. Will await authorization . Length of Stay (Days): 6 GMLOS: No GMLOS Documented * Care Plan - Elena Liar RN - 08/18/2024 5:59 AM EDT Problem: [...] at baseline and stable for transfer to [facility]. Discharge plan [facility]. Requested PT/OT evaluation today if possible to start insurance auth for return. Length of Stay (Days): 5 GMLOS: No GMLOS Documented * Care Coordination - Alanna Silva RN - 08/16/2024 12:33 PM EDT Care Management Progress Note Patient remains on T3 ICU, pending F transfer - medically stable for [facility]. PT/OT evals pending. Patient is from [facility]. DCP- return vs SNF vs home with [facility] going. CM to follow. . [...] EDT SW coverage for today. [facility] SW received SDPA consult due to pt being unable to answer any questions upon admission due to altered mental status. SW following along with TCC. * Care Coordination - Amira Stark - 08/13/2024 10:20 AM EDT Return referral placed to [facility] - [facility] Hosp via Careport per TCC request. Await review and response regarding ability to accept. TCC notified. * Care Coordination - An Werner RN - 08/13/2024 9:56 AM EDT Care Managment Initial Assessment Date: 08/13/2024 Patient Name: Sandy Deng : 1960 Patient Information Source of Information: Patient Budget Consultant Name/Contact Information: Jose at the bedside. Cognition/Language: Impaired Permission given to speak with patient customer success representative/caregiver as indicated: Yes Confirmation of Payer with patient/family: Yes Payer Name: [employer] [place]: No Confirmation of Primary Care Physician: Confirmed [...] Levels: Facility: Inpatient Rehab Facility Facility Name: [facility] Plan to Return: Yes Lives with: Spouse/significant [...] expects to be discharged to: Return to [facility] to complete rehab. Discharge Planning Actions: Continue to follow Patient's Choice Rights and [employer] and Collaborative Relationships Disclosed as Indicated for Post-Acute Care: Interdisciplinary Team Engagement: Acute Rehab Social Work Referral for: Additional Information: Patient admitted to T3 from [facility] for Altered Mental Status. Confirmed at the bedside with Jose Deng that patient is from [facility] and that the discharge plan if for her to return. [facility] Patient is currently on continuous EEG and NIV. An Werner RN * Care Plan - Yloanda Aguilar RN - 08/12/2024 5:35 PM EDT [...] improving Outcome: Not Progressing documented in this [facility]10-22-2024 [facility] 08-24-2024 Hospital course Narrative* William Jarrett DO [...] and T1DM who was managed at [facility] from 08/12/24-08/24/24 for acute on chronic hypoxic and hypercapnic respiratory failure. Of note, patient was [facility] recent hospital admission from 07/26/24-08/10/24 when she was managed in the ICU for septic shock/subdural hematoma. While at [facility], patient experienced altered mental status and was found hypoxic in the 80's. She was managed in the ICU with NIV and brought to the general medical floor. While on the [facility], patient experienced AMS likely due to CO2 narcosis and was brought back to the ICU on NIV. She was stabilzed with improved mentation and ultimately was transferred back to the [facility] and strongly urged to use BiPap at night. She is currently AAOx3 after wearing the Bipap overnight, and is on 4 L of oxygen at 100%. She was ultimately stable upon discharge to [facility]. Disposition: Acute Rehab Activity: up with assist; [...] Breztri Aerosphere 160-9-4.8 MCG/ACT aerosol Generic drug: Cnwkuif-Irpmypahidz-Odxspagbqv busPIRone 7.5 MG tablet Commonly known as: [...] Commonly known as: Nitrostat * Omnipod 5 [id number] Intro Gen 5 kit * Omnipod 5 RqhO8Q2 Pods Gen 5 misc Prolia 60 MG/ML solution prefilled syringe Generic drug: denosumab simvastatin 40 MG tablet Commonly known as: Zocor SPS 15 GM/60ML suspension Generic drug: sodium polystyrene Trelegy Ellipta 200-62.5-25 MCG/ACT aerosol powder Generic drug: Iwfvierowpi-Ezhfltaqc-Liklzf * This list has 2 medication(s) that [...] N/A Follow Up Appointment(s): Urology PCP Dr. Lujan Nephrology Items to Address at Followup Visit: Urology: urinary retention, post voiding test, Johnson catheter PCP: Respiratory symptoms, mobility Nephrology: continue dialysis Cosigned by Savita Denise MD at 08/24/2024 1:33 PM EDT documented in this [facility]10-22-2024 History of Present illness Narrative* William Jarrett [...] so no tx. Plan transfer back to [facility] when arrangements in place. 31 (Discharge 78890) minutes spent salr-bo-vqcm/floor time coordinating care and/or counseling patient. Savita Denise MD * Joni Monson MD - 08/23/2024 11:24 AM EDT Images from the original note were not included. Nephrology Progress Note Patient: Sandy Deng Room number: [id number] Date of Admit: 08/12/2024 LOS: 11 days Referring physician: Kemar Adames DO Outpatient Blanking Press Operator: Christy Huerta Assessment/Plan: Mrs. Sandy Deng is a 63 year old female with PMH of CKD 4, DM type 1, HTN, CAD, COPD (3L [id number]), initially presenting with resp distress and delirium, Covid positive. Also found to havepseudomonas and staph aures PNA. She was intubated, now extubated. CT head showed a small right SDH. Consulted for UMA on CKD 4 - follows with Dr Christy Huerta ([place]). On review of available labs,Cr has been 2.4-2.8, last (04/26) Cr 2.4 eGFR 20, 24 hr qfoosdt=0884 mg. On admit, (07/26) Cr 4.56, CRRT [...] care of this patient. Joni Monson MD [facility] ([facility]) Office phone: [phone] Office fax: [phone] 08/23/2024 Subjective Patient seen this am, spouse [...] PO (chewing/swallowing) however monitor acute need for PIE BAKER eval. Per MNT protocol will add 2PM [...] ? loss at baseline such as in quaker, clavicle, etc (muscle)) Fluid Accumulation: No significant fluid accumulation (per chart) (BUE pitting, BLE non-pitting perflowsheets) Preparer Samples And Repairs Strength: Not Performed Nutrition Assessment: Pt with [...] (pt was d/c 08/10, initially presented to [facility] 07/23 w/ acute resp distress and acute [...] admit --> 07/28/24: 134# bedscale, 08/07/24:126# bedscale) [place] Body Weight (lbs) (Calculated): 130 lbs [place] Body Weight (Kg) (Calculated): 59 kg % [place] Body Weight (Calculated): 83.1 % BMI (kg/m2) [...] Renae Squires RD Contact: Secure chat or *[phone] * Shanti Bianchi NP - 08/23/2024 9:26 AM EDT Images from the original note were not included. [facility] Wound Care Progress Note Sandy Deng AGE: [...] misc Continuous Glucose Transmitter (Dexcom G6 transmitter) [facility] fluticasone (Flonase) 50 MCG/ACT nasal spray Administer [...] not being treated; urology consulted. 35 (Subsequent 18869) minutes spent jfnn-ak-wilt/floor time coordinating care and/or counseling patient. Savita Denise MD * Janell Booker MD - 08/22/2024 1:42 PM EDT ICU Transfer Checklist Transfer Med Reconciliation (resume home meds if able, convert to PO if able) Complete Antibiotics (name, indication, duration, convert to PO if able) None Steroid (indication, duration, convert to PO if able) Yes,on taper of PO prednisone, 6 more doses (3 days 10mg, 3 days 5mg) Anticipated [place] Medications (ICU initiated) or Dose Changes and [...] original note were not included. OCCUPATIONAL THERAPY [facility] Treatment Note Name/MRN: Sandy Deng ([id number]) Date of : 1960 Age: 63 y.o. Room/Bed: T3-304/T3-304 A Discharge Recommendation: IP Rehab Other: Continue to assess pending progress. Prior Level of Function Prior Level of ADL Function: Independent Prior Level of Mobility: Independent; Device: Front wheeled walker Prior Level of Transfers: Independent Pt requires assistance at [facility], information of independent is baseline prior [...] original note were not included. PHYSICAL THERAPY [facility] Re-Evaluation Name/MRN: Sandy Deng ([id number]) Evaluation Date: 08/22/2024 Date of : 1960 [...] chronic kidney disease (HCC) Type 1 diabetes ([facility]) Past Surgical History: Past Surgical History: Procedure Laterality Date CORONARY ANGIOPLASTY WITH STENT PLACEMENT CORONARY ANGIOPLASTY WITH STENT PLACEMENT Admission Diagnosis: Patient Active Problem List Diagnosis Date Noted Anxiety disorder due to medical condition 08/12/2024 Atherosclerosis of coronary artery 08/12/2024 Chest pain 08/12/2024 Chronic constipation 08/12/2024 Cigarette smoker 08/12/2024 Adrian's sign present 08/12/2024 Depressive disorder 08/12/2024 Diabetic polyneuropathy (CMS/HCC) ([facility]) 08/12/2024 Dizziness 08/12/2024 Gastroparesis 08/12/2024 Hypoglycemia 08/12/2024 Injury of kidney 08/12/2024 Intermittent palpitations 08/12/2024 Intractable vomiting with nausea 08/12/2024 Respiratory failure with hypoxia ([facility]) 08/12/2024 Skin lesion of foot 08/12/2024 Hypercapnic respiratory failure ([facility]) 08/12/2024 SDH (subdural hematoma) ([facility]) 07/26/2024 COPD (chronic obstructive pulmonary disease) ([facility]) 07/26/2024 Type 1 diabetes mellitus with kidney [...] Responsibilities: Independent Receives Help From: Spouse Active Check Examiner: N/A Prior Level of Function Prior Level [...] of Care supervision is transferred to a [facility] Therapy Services Physical Therapist. Goals and/or treatment [...] Normal [] Scar/Lesion/Mass Inspection of teeth/lips/gums Dentition: [][place] Teeth []Dentures Lips/Gums: [x]Intact []Lesion Present Mucosa: [x]Dierks []Moist []Dry Neck: External Appearance Overall Appearance: [...] 0825 08/21/24 1432 PHART 7.274* 7.286* 7.373 AMR9IGU 59.2* 59.5* 51.3* PO2ART 113.3* 88.7 85.9 ODS5FRP 26.8* 27.7* 29.2* W9UFEPUX 40% Oxygen CPAP CPAP Lactic Acid: No [...] night, modified lantus from 3u-> [facility]u [facility], HD on MWF, unable to [...] DVT Prophylaxis: Heparin subcutaneous Disposition: Transfer to [facility] Cosigned by Kemar Adames DO at 08/22/2024 3:38 PM EDT Associated attestation - Kemar Adames DO - 08/22/2024 3:38 PM EDT I have personally performed a wchf-ho-zgge diagnostic evaluation on this patient on date of rxuheaf79/20/24. History, labs, imaging studies, and electronic medical record have been reviewed by me. This note documented by the []Critical Care Fellow [x]house cleaner []TONJA reflects my history, exam, and medical [...] days Referring physician: Savita Denise MD Outpatient Blanking Press Operator: Christy Huerta Assessment/Plan: Mrs. Sandy Deng is a 63 year old female with PMH of CKD 4, DM type 1, HTN, CAD, COPD (3L D0mopyvczg), initially presenting with resp distress and delirium, Covid positive. Also found to havepseudomonas and staph aures PNA. She was intubated, now extubated. CT head showed a small right SDH. Consulted for UMA on CKD 4 - follows with Dr Christy Huerta ([place]). On review of available labs,Cr has been 2.4-2.8, last (04/26) Cr 2.4 eGFR 20, 24 hr gfbzrmg=0507 mg. On admit, (07/26) Cr 4.56, CRRT [...] care of this patient. Karyn Jones MD [facility] ([facility]) Pager [phone] Office phone: [phone] Office fax: [phone] 08/21/2024 Subjective Patient seen this am. She [...] Inspection of teeth/lips/gums (NIV mask inplace)_ Dentition: [][place] Teeth []Dentures Lips/Gums: []Intact []Lesion Present Mucosa: []Dierks []Moist []Dry Neck: External Appearance Overall Appearance: [...] 1558 08/20/24 2121 PHART 7.244* 7.242* 7.274* FQD0HRO 68.4* 67.9* 59.2* PO2ART 36.2* 101.2* 113.3* MBG9EGB 28.9* 28.6* 26.8* T5HYDNSZ Bi-PAP 40% Oxygen 40% Oxygen Lactic Acid: [...] PM EDT I have personally performed a nqkw-wy-osfu diagnostic evaluation on this patient on date of teimxpv23/19/24. History, labs, imaging studies, and electronic medical record have been reviewed by me. This note documented by the []Critical Care Fellow [x]house cleaner []TONJA reflects my history, exam, and medical [...] days Referring physician: Savita Denise MD Outpatient Blanking Press Operator: Christy Huerta Assessment/Plan: Mrs. Sandy Deng is a 63 year old female with PMH of CKD 4, DM type 1, HTN, CAD, COPD (3L E6lxrhzarl), initially presenting with resp distress and delirium, Covid positive. Also found to havepseudomonas and staph aures PNA. She was intubated, now extubated. CT head showed a small right SDH. Consulted for UMA on CKD 4 - follows with Dr Christy Huerta ([place]). On review of available labs,Cr has been 2.4-2.8, last (04/26) Cr 2.4 eGFR 20, 24 hr objmqej=5787 mg. On admit, (07/26) Cr 4.56, CRRT [...] be covering this weekend. Joni Monson MD [facility] ([facility] Office phone: [phone] Office fax: [phone] 08/20/2024 Subjective Patient seen this am, spouse [...] pleural effusions. * Sherri Domingo, SYED - PARENT AIDE - 08/20/2024 8:33 AM EDT Images from the original note were not included. [facility] Wound Care Progress Note Sandy Deng AGE: [...] tablet by mouth 2 times daily. Cholecalciferol ([facility] Vitamin D3) 25 MCG (1000 UT) chewable [...] prep barrier wipe daily and PRN, leave MAINTENANCE MECHANIC Nutritional support Wound Care to follow Recommend to follow up at [facility] Outpatient wound care center after hospital discharge. [...] Daily PRN, Janell Booker MD sodium chloride ([place]) 0.65 % nasal spray 1 spray, 1 [...] would like to meet with SW or field case manager to discuss insurance coverage for [...] use BiPAP overnight. Pulmonary following. 35 (Subsequent 38711) minutes spent tlot-rq-ktts/floor time coordinating care and/or counseling patient. Savita Denise MD * Joni Monson MD - 08/19/2024 3:19 PM EDT Images from the original note were not included. Nephrology Progress Note Patient: Sandy Deng Room number: [id number] Date of Admit: 08/12/2024 LOS: 7 days Referring physician: Kemar Adames DO Outpatient Blanking Press Operator: Christy Huerta Assessment/Plan: Mrs. Sandy Deng is a 63 year old female with PMH of CKD 4, DM type 1, HTN, CAD, COPD (3L Q4pimqkcrz), initially presenting with resp distress and delirium, Covid positive. Also found to havepseudomonas and staph aures PNA. She was intubated, now extubated. CT head showed a small right SDH. Consulted for UMA on CKD 4 - follows with Dr Christy Huerta ([place]). On review of available labs,Cr has been 2.4-2.8, last (04/26) Cr 2.4 eGFR 20, 24 hr uvkgimk=9555 mg. On admit, (07/26) Cr 4.56, CRRT [...] care of this patient. Joni Monson MD [facility] ([facility] Office phone: [phone] Office fax: [phone] 08/19/2024 Subjective Patient seen this am afternoon. [...] hours ending 08/19/24 1519 [REMOVED] Urethral Catheter Ljccghdn-lgq-Geffcj (mL): 25 mL FIO2 needs: on 4 [...] original note were not included. PHYSICAL THERAPY [facility] Treatment Note Name/MRN: Sandy Deng ([id number]) Date of : 1960 Age: 63 y.o. Room/Bed: [facility] A Discharge Recommendation: IP Rehab Equipment Needed: [...] time needed with all mobility and very [place].Noted wet, non-productive cough and tends to fatigue [...] Daily PRN, Janell Booker MD sodium chloride ([place]) 0.65 % nasal spray 1 spray, 1 [...] would like to meet with SW or field case manager to discuss insurance coverage for [...] PT and OT recommended IPR on discharge. call or contact centre manager following Cosigned by Savita Denise MD at [...] as directed by pulmonary service. 35 (Subsequent 54856) minutes spent wkgz-bm-owfz/floor time coordinating care and/or counseling patient. Savita [...] this time. Continue to monitor need for PIE BAKER assessment given rec ent recommendations. 2. Will [...] flowsheets) (BUE pitting, BLE non-pitting per flowsheets) Preparer Samples And Repairs Strength: Not Performed Nutrition Assessment: pt with previously reviewed PMH who remains admitted to the ICU after she initially presented to [facility] ED on 08/12/24 in respiratory distress, pt was d/c to [facility] following admit and was found with altered mentation, NC was taken off and pulse ox was 80%, pt was brought to [facility] ED for assessment, in theED mental status [...] yesterday with recs to d/c back to [facility], wound care following due to left 4th toe abrasion, noted pt has been deemed stable for transfer to [facility] since 08/14. In terms of nutrition throughout [...] prior to d[facility]c, [facility] Soft and [...] admit --> 07/28/24: 134# bedscale, 08/07/24:126# bedscale) [place] Body Weight (lbs) (Calculated): 130 lbs [place] Body Weight (Kg) (Calculated): 59 kg % [place] Body Weight (Calculated): 83.1 % BMI (kg/m2) [...] determine Lidia Rojas RD Contact: available via [employer] chat or *[phone] * Joni Monson MD - 08/18/2024 12:55 PM EDT Images from the original note were not included. Nephrology Progress Note Patient: Sandy Deng Room number: T3-321/[id number] A Date of Admit: 08/12/2024 LOS: 6 days Referring physician: Kemar Adames DO Outpatient Blanking Press Operator: Christy Huerta Assessment/Plan: Mrs. Sandy Deng is a 63 year old female with PMH of CKD 4, DM type 1, HTN, CAD, COPD (3L D4iwmebrpu), initially presenting with resp distress and delirium, Covid positive. Also found to havepseudomonas and staph aures PNA. She was intubated, now extubated. CT head showed a small right SDH. Consulted for UMA on CKD 4 - follows with Dr Christy Huerta ([place]). On review of available labs,Cr has been 2.4-2.8, last (04/26) Cr 2.4 eGFR 20, 24 hr ymhrokz=5427 mg. On admit, (07/26) Cr 4.56, CRRT [...] ID -off ABs 7. Dispo: -looking for [facility] Will follow along as directed. Thank you for allowing us to participate in the care of this patient. Case discussed with primary team. Joni Monson MD [facility] ([facility] Office phone: [phone] Office fax: [phone] 08/18/2024 Subjective Patient seen this am during [...] ml Net -3250 ml [REMOVED] Urethral Catheter Wrocamvm-mqb-Encmzw (mL): 25 mL FIO2 needs: on 4 [...] pleural effusions. * Mayra Almeida, SYED - PARENT AIDE - 08/18/2024 12:05 PM EDT Images from the original note were not included. [facility] Wound Care PROGRESS Note Sandy Deng AGE: [...] tablet by mouth 2 times daily. Cholecalciferol ([facility] Vitamin D3) 25 MCG (1000 UT) chewable [...] to follow Recommend to follow up at [facility] Outpatient wound care center after hospital discharge. [...] and subdural hematoma who presents to the [facility] respiratory distress. Patient had been recently discharged 2 days prior to [facility], and was found altered, nasal cannula [...] Normal [] Scar/Lesion/Mass Inspection of teeth/lips/gums Dentition: [x][place] Teeth []Dentures Lips/Gums: [x]Intact []Lesion Present Mucosa: [x]Dierks (noted dry blood in mouth) []Moist [x]Dry [...] 15.7* ABGs: No results for input(s): PHART, SGR0CMO, PO2ART, OEW2VSH, SO2ART, S2NVMKGF in thelast 72 hours. Lactic Acid: No [...] and OT recommended IPR on discharge, contacted field case manager for prior auth timeline for discharge to [facility] Spoke with pt who would like to meet with SW or field case manager to discuss insurance coverage for dialysis before pt is discharged from hospital. Encourage ambulation GI Prophylaxis: Pantoprazole PO DVT Prophylaxis: Heparin subcutaneous Disposition: Transfer to [facility], insurance auth started yesterday for [facility], expect it to take 2-3 days Cosigned by Kemar Adames DO at 08/18/2024 8:23 PM EDT Associated attestation - Kemar Adames DO - 08/18/2024 8:23 PM EDT I have personally performed a dnax-on-wlor diagnostic evaluation on this patient on date of qummeod30/16/24. History, labs, imaging studies, and electronic medical record have been reviewed by me. This note documented by the []Critical Care Fellow [x]house cleaner []TONJA reflects my history, exam, and medical [...] original note were not included. PHYSICAL THERAPY [facility] Initial Evaluation Name/MRN: Sandy Deng ([id number]) Evaluation Date: 08/17/2024 Date of : 1960 [...] tasks. Pt present and states pt at [facility] for one night and had respiratory event. Was not seen for therapies there yet but plan to go back for continued therapies. Pain: Pt denies any current pain. Past Medical History: Past Medical History: Diagnosis Date COPD (chronic obstructive pulmonary disease) ([facility]) Diabetic neuropathy ([facility]) Hyperlipidemia Myocardial infarct ([facility]) Stage 4 chronic kidney disease ([facility]) Type 1 diabetes ([facility]) Past Surgical History: Past Surgical History: Procedure Laterality Date CORONARY ANGIOPLASTY WITH STENT PLACEMENT CORONARY ANGIOPLASTY WITH STENT PLACEMENT Admission Diagnosis: Patient Active Problem List Diagnosis Date Noted Anxiety disorder due to medical condition 08/12/2024 Atherosclerosis of coronary artery 08/12/2024 Chest pain 08/12/2024 Chronic constipation 08/12/2024 Cigarette smoker 08/12/2024 [place]'s sign present 08/12/2024 Depressive disorder 08/12/2024 Diabetic polyneuropathy (CMS/HCC) ([facility]) 08/12/2024 Dizziness 08/12/2024 Gastroparesis 08/12/2024 Hypoglycemia 08/12/2024 Injury of kidney 08/12/2024 Intermittent palpitations 08/12/2024 Intractable vomiting with nausea 08/12/2024 Respiratory failure with hypoxia ([facility]) 08/12/2024 Skin lesion of foot 08/12/2024 Hypercapnic respiratory failure ([facility]) 08/12/2024 SDH (subdural hematoma) ([facility]) 07/26/2024 COPD (chronic obstructive pulmonary disease) ([facility]) 07/26/2024 Type 1 diabetes mellitus with kidney complication ([facility]) 07/26/2024 Myocardial infarction ([facility]) 07/26/2024 Hyperlipidemia 07/26/2024 Diabetic neuropathy associated with type 1 diabetes mellitus ([facility]) 07/26/2024 Stage 4 chronic kidney disease (HCC) [...] Responsibilities: Independent Receives Help From: Spouse Active Check Examiner: N/A Prior Level of Function Prior Level [...] Raw Score (No Stairs) : 14 JH-HLM [facility] Score: Walked 10 steps or more (i.e. [...] of Care supervision is transferred to a [facility] Therapy Services Physical Therapist. Goals and/or treatment plan was established in collaboration with patient/family/other representatives. Cosigned by Maranda Greer PT at 08/17/2024 3:14 PM EDT * Jamey Muro OT - 08/17/2024 10:28 AM EDT Images from the original note were not included. OCCUPATIONAL THERAPY [facility] Initial Evaluation Name/MRN: Sandy Deng ([id number]) Evaluation Date: 08/17/2024 Date of : 1960 Admission Date: 08/12/2024 12:53 PM Age: 63 y.o. Room/Bed: T3-321/T3-321 A Discharge Recommendation: IP Rehab Other: Continue to assess pending progress. Assessment IMPRESSION: Pt presented with respiratory failure, hypoxia, and AMS upon admission. Pt had recent hospital admission for septic shock and subdural hematoma, pt went to [facility] for 2 days and thenended up in ER for this admission. Pt is independent prior to first admission and requires assistance prior to this admission at [facility]. Per pt and , therapy only [...] 08/12/2024 Depressive disorder 08/12/2024 Diabetic polyneuropathy (CMS/HCC) ([facility]) 08/12/2024 Dizziness 08/12/2024 Gastroparesis 08/12/2024 Hypoglycemia 08/12/2024 Injury of kidney 08/12/2024 Intermittent palpitations 08/12/2024 Intractable vomiting with nausea 08/12/2024 Respiratory failure with hypoxia ([facility]) 08/12/2024 Skin lesion of foot 08/12/2024 Hypercapnic respiratory failure ([facility]) 08/12/2024 SDH (subdural hematoma) ([facility]) 07/26/2024 COPD (chronic obstructive pulmonary disease) ([facility]) 07/26/2024 Type 1 diabetes mellitus with kidney complication ([facility]) 07/26/2024 Myocardial infarction ([facility]) 07/26/2024 Hyperlipidemia 07/26/2024 Diabetic neuropathy associated with type 1 diabetes mellitus ([facility]) 07/26/2024 Stage 4 chronic kidney disease ([facility]) 07/26/2024 Acute renal failure ([facility]) 07/26/2024 Anemia 07/26/2024 Hypocalcemia 07/26/2024 Multiple pulmonary nodules 05/17/2024 Underweight 04/14/2024 Solitary pulmonary nodule 02/06/2024 Wheezing 10/29/2023 History of coronary artery stent placement 02/04/2018 Nicotine dependence 01/08/2017 Hypertension 01/08/2017 Diabetic ketoacidosis ([facility]) ([facility]) 12/30/2012 Medical Precautions: No active isolations Proper [...] Responsibilities: Independent Receives Help From: Spouse Active Check Examiner: N/A Prior Level of Function Prior Level of ADL Function: Independent Prior Level of Mobility: Independent; Device: Front wheeled walker Prior Level of Transfers: Independent Pt requires assistance at [facility], information of independent is baseline prior [...] of Care supervision is transferred to a [facility] Therapy Services Occupational Therapist. Goals and/or treatment plan was established in collaboration with patient/family/other representatives. * Radha Kelley RCP - 08/17/2024 9:48 AM EDT [facility] Respiratory Care Department Progress Note As [...] and subdural hematoma who presents to the [facility] respiratory distress. Patient had been recently discharged 2 days prior to [facility], and was found altered, nasal cannula [...] of teeth/lips/gums Lips/Gums: [x]Intact []Lesion Present Mucosa: [x]Dierks []Moist []Dry Neck: External Appearance Overall Appearance: [...] 15.8* ABGs: No results for input(s): PHART, ITR0YDM, PO2ART, ENQ9XRF, SO2ART, Y4FIZMKY in thelast 72 hours. Lactic Acid: No [...] would like to meet with SW or field case manager to discuss insurance coverage for dialysis before pt is discharged from hospital. Encourage ambulation. GI Prophylaxis: Pantoprazole PO DVT Prophylaxis: Heparin subcutaneous Disposition: Transfer to [facility] Cosigned by Kemar Adames DO at 08/17/2024 7:07 PM EDT Associated attestation - Kemar Adames DO - 08/17/2024 7:07 PM EDT I have personally performed a lswe-qt-wdvp diagnostic evaluation on this patient on date of lzqekyi13/15/24. History, labs, imaging studies, and electronic medical record have been reviewed by me. 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 Baseline Cr had been 2.4-2.8, last (04/26) Cr 2.4 eGFR 20, 24 hr hxcpuzy=0074 mg. -Suspected ATN in setting of infection/HD [...] Skin: warm and dry, no rash Access: [facility] with clean dressing DATA: LABS: Recent [...] 231 08/12/2024 Lab Results Component Value Date [id number] 932 (H) 08/12/2024 FOLATE 10.8 08/12/2024 Lab [...] LABFUNG IMAGING: POCT glucose meter Performed by: [employer] [facility], [address] [place] [id number] CLIA ID: [id number] POCT glucose meter Performed by: [employer] [facility], [address] [place] [address] CLIA ID: [id number] Signed: Jose Carlos Medrano MD Nephrology [facility] ([facility]) Pager: [phone] Office Office * Sherri Domingo, WINDOWS APPLICATION ADMINISTRATOR - PARENT AIDE - 08/16/2024 10:32 AM EDT Images from the original note were not included. [facility] Wound Care PROGRESS Note Sandy Deng AGE: [...] misc Continuous Glucose Transmitter (Dexcom G6 transmitter) [facility] fluticasone (Flonase) 50 MCG/ACT nasal spray Administer [...] to follow Recommend to follow up at [facility] Outpatient wound care center after hospital discharge. [...] from the original note were not included. [facility] - Infectious Diseases Attending [...] and subdural hematoma who presents to the [facility] respiratory distress. Patient had been recently discharged 2 days prior to [facility], and was found altered, nasal cannula [...] Normal [] Scar/Lesion/Mass Inspection of teeth/lips/gums Dentition: [][place] Teeth []Dentures Lips/Gums: [x]Intact []Lesion Present Mucosa: [x]Dierks []Moist []Dry Neck: External Appearance Overall Appearance: [...] ABGs: Recent Labs 08/13/24 0658 PHART 7.291* SUS9PZC 49.4* PO2ART 84.7 LSB0NXR 23.3 K4MIOJCU 30% Oxygen Lactic Acid: Recent Labs 08/13/24 [...] would like to meet with SW or field case manager to discuss insurance coverage for dialysis before pt is discharged from hospital. GI Prophylaxis: Pantoprazole PO DVT Prophylaxis: SCDs, subcutaneous heparin Disposition: Transfer to [facility] Cosigned by Kemar Adames DO at 08/16/2024 8:35 PM EDT Associated attestation - Kemar Adames DO - 08/16/2024 8:35 PM EDT I have personally performed a iawg-zz-rnvw diagnostic evaluation on this patient on date of /14/24 . History, labs, imaging studies, and electronic medical record have been reviewed by me. This note documented by the [x]house cleaner []TONJA reflects my history, exam, and medical [...] days Referring physician: Elizabeth Tyler MD Outpatient Blanking Press Operator: Dr. Christy Huerta Assessment / Plan 63 [...] hypercapneic respiratory failure. 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 Baseline Cr had been 2.4-2.8, last (04/26) Cr 2.4 eGFR 20, 24 hr cbgckqs=2465 mg. -Suspected ATN in setting of infection/HD [...] last admit -On vanc/zosyn -ID evaluating Access: [facility] 07/29 Recommendations: -No acute indications for HD, next treatment tomorrow 08/16 -Repeat lasix 100 mg IV today -Will follow pancytopenia workup per primary, using citrate locks for HD line pending HIT testing -Renal function panel daily Thank you for allowing us to participate in the care of this patient. Please call with any questions. Saroj Gaffney MD [facility] ([facility]) Office phone: [phone] Office fax: [phone] Pager: [phone] 10/13/24 Subjective No acute events. Fairly modest response to high dose lasix yesterday and solutes uptrending. Still short of breath today and with some LE edema. Past Medical History Past Medical History: Diagnosis Date COPD (chronic obstructive pulmonary disease) ([facility]) Diabetic neuropathy ([facility]) Hyperlipidemia Myocardial infarct ([facility]) Stage 4 chronic kidney disease ([facility]) Type 1 diabetes ([facility]) Medications Scheduled Meds:aspirin, 81 mg, Oral, Daily [...] and subdural hematoma who presents to the [facility] respiratory distress. Patient had been recently discharged 2 days prior to [facility], and was found altered, nasal cannula [...] Normal [] Scar/Lesion/Mass Inspection of teeth/lips/gums Dentition: [][place] Teeth []Dentures Lips/Gums: [x]Intact []Lesion Present Mucosa: [x]Dierks []Moist []Dry Neck: External Appearance Overall Appearance: [...] 2333 08/13/24 0658 PHART -- -- 7.291* RZA4YVE -- -- 49.4* PO2ART -- -- 84.7 FGK3IKE -- -- 23.3 N5PQMBBY Bi-PAP 30% Oxygen 30% Oxygen Lactic Acid: [...] reactive airway, pulmonary consulted to follow on [facility] Continue prednisone taper: 40mg 3 days, 30mg [...] PO DVT Prophylaxis: SCDs Disposition: Transfer to [facility] Cosigned by Elizabeth Tyler MD at 08/15/2024 1:22 PM EDT Associated attestation - Elizabeth Tyler MD - 08/15/2024 1:22 PM EDT I have personally performed a tfin-fa-luen diagnostic evaluation on this patient on date of jkvymra23/13/24. History, labs, imaging studies, and electronic medical record have been reviewed by me. This note documented by the [x]house cleaner []TONJA reflects my history, exam, and medical [...] days Referring physician: Elizabeth Tyler MD Outpatient Blanking Press Operator: Dr. Christy Huerta Assessment / Plan 63 [...] hypercapneic respiratory failure. 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 Baseline Cr had been 2.4-2.8, last (04/26) Cr 2.4 eGFR 20, 24 hr kiiaiyv=1674 mg. -Suspected ATN in setting of infection/HD [...] last admit -On vanc/zosyn -ID evaluating Access: [facility] 07/29 Recommendations: -No acute indications for HD, monitoring for recovery -Lasix challenge today 100 mg IV x1 -Will follow pancytopenia workup per primary, using citrate locks for HD line pending HIT testing -Renal function panel daily Thank you for allowing us to participate in the care of this patient. Please call with any questions. Saroj Gaffney MD [facility] ([facility]) Office phone: [phone] Office fax: [phone] Pager: [phone] 08/14/24 Subjective No acute events. No issues with HD yesterday, UF 2.5L. Patient somewhat more awake/alert today. Slight shortness of breath and wheezing. No other complaints. Past Medical History Past Medical History: Diagnosis Date COPD (chronic obstructive pulmonary disease) (HCC) Diabetic neuropathy (HCC) Hyperlipidemia Myocardial infarct (HCC) Stage 4 chronic kidney disease (HCC) Type 1 diabetes ([facility]) Medications Scheduled Meds:aspirin, 81 mg, Oral, Daily [...] Yes, addressed in today's progress note Anticipated [place] Medications (ICU initiated) or Dose Changes and [...] hours of ICU transfer, page MICU res it solutions architect for clarifications. * Janell Booker MD - [...] had been [facility], and today was found altered, nasal [...] Normal [] Scar/Lesion/Mass Inspection of teeth/lips/gums Dentition: [][place] Teeth []Dentures Lips/Gums: [x]Intact []Lesion Present Mucosa: []Dierks []Moist []Dry Neck: External Appearance Overall Appearance: [...] 2333 08/13/24 0658 PHART -- -- 7.291* TCO5QGW -- -- 49.4* PO2ART -- -- 84.7 ZBD4EJS -- -- 23.3 P6MXKCCB Bi-PAP 30% Oxygen 30% Oxygen Lactic Acid: [...] EEG with video is abnormal. Continuous diffuse jrjrvdas-zn-bycggw diffuse slowing is seen unresponsive to stimulation. REM sleep architecture is observed. At times, fronto-centrally predominant fast activity is observed reminiscent of sleep spindles. No interictal epileptiform activity nor seizures are observed. The findings are supportive of a xyniibfh-sy-xdudtf global encephalopathy non- specific as to etiology. [...] PM EDT I have personally performed a argi-fl-mkpk diagnostic evaluation on this patient on date of /12/24. History, labs, imaging studies, and electronic medical record have been reviewed by me. This note documented by the [x]house cleaner []TONJA reflects my history, exam, and medical [...] Abraham RRT - 08/14/2024 12:36 AM EDT [facility] Respiratory Care Department Progress Note Comment or [...] requiring intubation, was followed by RD and PIE BAKER, underwent MBSS 08/04 with pureed/mildly thick liquids recs, was later upgraded to regular textures/mildly thick liquids. Per paper chart at [facility] pt was ordered a Soft and Bite Sized Diet with Mildly Thick Liquids. Did not appear to be receiving ONS. Recommend pt not be without nutrition for >72 hours if medically able. --> if pt is able to advance oral diet, consider goal of ALLI, CHO Controlled and monitor renal labs and need for additional therapeutic restrictions in setting of ESRD/HD. Consider PIE BAKER evaluation for texture/consistency recommendations. Do feel that [...] data (need further clarification on PO intake NURSE ANESTHESIA PROGRAM DIRECTOR, pt weight appeared to be downtrending during [...] and bite sized/mildly thick liquids, unclear intake NURSE ANESTHESIA PROGRAM DIRECTOR, pt is currently NPO and requiring NIV) [...] Mild (BUE pitting, BLE non-pitting per flowsheets) Preparer Samples And Repairs Strength: Not Performed Nutrition Assessment: pt with PMH significant for COPD (4L NC at baseline), ESRD on HD, DM1, HLD and recent admission to ICU for septic shock and subdural hematoma (07/26-08/10/24) who presented to [facility] ED on 08/12/24 in respiratory distress, pt was d/c to [facility] following recent admit and was found with altered mentation, nasal cannula was taken off and pulse ox at 80%, pt brought to [facility] ED for assessment, in the ED mental [...] time, of note pt was followed by PIE BAKER during recent admit- she was on altered consistency diet, underwent MBSS on 08/04 with pureed/mildly thick liquids recs, was later upgraded to regular textures/mildly thick liquids on 08/09 prior to d/c, at time of assessment pt is sleeping soundly in bed, NIV in place and pt on cEEG, per paper chart at [facility] ptwas receiving a Soft and Bite [...] On: Kcal/kg Weight Used for Energy Requirements: [place] Weight for Energy Calculation (kg): 59.1 kg Total Energy Requirements (kcals/day): 1655-1891kcals/day Weight Used for Protein Requirements: [place] Weight in Kg Used for Protein Requirements: [...] admit --> 07/28/24: 134# bedscale, 08/07/24:126# bedscale) [place] Body Weight (lbs) (Calculated): 130 lbs [place] Body Weight (Kg) (Calculated): 59 kg % [place] Body Weight (Calculated): 104.6 % BMI (kg/m2) [...] determine Lidia Rojas RD Contact: available via [employer] or *[phone] * Janell Booker MD - 08/13/2024 6:23 [...] had been [facility], and today was found altered, nasal [...] Normal [] Scar/Lesion/Mass Inspection of teeth/lips/gums Dentition: [][place] Teeth []Dentures Lips/Gums: [x]Intact []Lesion Present Mucosa: []Dierks []Moist []Dry Neck: External Appearance Overall Appearance: [...] 08/12/24 23308/13/24 0658 PHART -- -- 7.291* LRO7TEX -- -- 49.4* PO2ART -- -- 84.7 CWW8THN -- -- 23.3 J0LFAOJA Bi-PAP 30% Oxygen 30% Oxygen Lactic Acid: [...] EEG with video is abnormal. Continuous diffuse vtbkipxi-yu-yupoyw diffuse slowing is seen unresponsive to stimulation. REM sleep architecture is observed. At times, fronto-centrally predominant fast activity is observed reminiscent of sleep spindles. No interictal epileptiform activity nor seizures are observed. The findings are supportive of a lljylgdw-ey-hoykff global encephalopathy non- specific as to etiology. [...] addendum. Cosigned by Elizabeth Tyler MD at 08/13/2024 4:29 PM EDT Associated attestation - Elizabeth Tyler MD - 08/13/2024 4:29 PM EDT I have personally performed a yjot-zj-kthw diagnostic evaluation on this patient on date of baiklex39/11/24. History, labs, imaging studies, and electronic medical record have been reviewed by me. This note documented by the [x]house cleaner []TONJA reflects my history, exam, and medical [...] so far today, excludingprocedures. documented in this [facility]10-21-2024 Nurse Note* Liliana Mott - 08/23/2024 3:02 PM EDT Patient Name: Sandy Deng Patient : 1960 Acct: [id number] Date of Admission: 08/12/2024 Room/Bed: [facility] A Code Status: Full Code Allergies: No [...] artery Chest pain Chronic constipation Cigarette smoker [place]'s sign present Depressive disorder Diabetic ketoacidosis (CMS/HCC) [...] - Before each treatment: Dialysis Machine No.: [id number] Machine Number: [id number] Dialyzer Lot No.: [id number] Tubing Lot Number: [id number] All Connections Secure: Yes Venous Parameters Set: Yes Arterial Parameters Set: Yes NS Bag: Yes Saline Line Double Clamped: Yes Dialyzer: Nipro Prime Volume (mL): 200 mL RO Machine Number: [id number] RO Machine Log Sheet Completed: Yes Machine Alarm Self Test: Completed, Passed (3445) (08/23/24 1323) Air Foam Detector: Tested, Proper Function, pH Reading Extracorporeal Circuit Tested for Integrity: Yes Machine Conductivity: 13.6 Manual Conductivity: 13.6 Manual Ph: 7 Bleach Test (Neg): Yes Bath Temperature: 36 C (96.8 F) Conductivity Meter Serial #: [id number] Machine Functioning Alarm Free? Yes Dialysis Bath: K+ (Potassium): 4 Ca+ (Calcium): 2.5 Na+ (Sodium): 137 HCO3 (Bicarb): 35 Bicarbonate Concentrate Lot No.: [id number] Acid Concentrate Lot No.: [id number] Chlorine Testing - Before each treatment and [...] Name: Sandy Deng Patient : 1960 Acct: [id number] Date of Admission: 08/12/2024 [facility] A Code Status: Full Code Allergies: [...] artery Chest pain Chronic constipation Cigarette smoker [place]'s sign present Depressive disorder Diabetic ketoacidosis (CMS/HCC) [...] 0753 -- -- -- Tachypnea -- Clear;Diminished Dierks Dry;Cool -- Soft;Rounded;Nondistended Active;Audible 08/21/24 1010 Alert (0) -- Regular -- Bi-PAP Diminished Dierks Cool;Dry Fair Soft Active 08/21/24 1320 Alert (0) x3 Regular -- Bi-PAP Diminished Dierks Cool;Dry Fair Soft Active Labs Lab Results [...] - Before each treatment: Dialysis Machine No.: [id number] RO Machine Number: [id number] Dialyzer Lot No.: [id number] Tubing Lot Number: [id number] All Connections Secure: Yes Venous Parameters Set: Yes Arterial Parameters Set: Yes NS Bag: Yes Saline Line Double Clamped: Yes Dialyzer: Nipro Prime Volume (mL): 200 mL RO Machine Number: [id number] RO Machine Log Sheet Completed: Yes Machine [...] HCO3 (Bicarb): 35 Bicarbonate Concentrate Lot No.: [id number] Acid Concentrate Lot No.: [id number] Chlorine Testing - Before each treatment and [...] RN (First Initial, Last Name, Title): A. [place] Rn Education Person Educated: Patient Knowledge Base: [...] RN - 08/19/2024 8:[address] Bijan Jarrett paged with repeat glucose of 653 * Claudia Perez RN - 08/19/2024 7:56 AM EDT Critical Care lab called with result of 626. Med Team A paged regarding. * Laquita Shaikh LPN - 08/18/2024 11:23 AM EDT Patient Name: Sandy Deng Patient : 1960 Acct: [id number] Date of Admission: 08/12/2024 Room[facility]Bed: [facility] A Code Status: Full Code Allergies: [...] - Before each treatment: Dialysis Machine No.: [id number] RO Machine Number: [id number] Dialyzer Lot No.: [id number] Tubing Lot Number: [id number] All Connections Secure: Yes Venous Parameters Set: Yes Arterial Parameters Set: Yes NS Bag: Yes Saline Line Double Clamped: Yes Dialyzer: Nipro Prime Volume (mL): 250 mL RO Machine Number: [id number] RO Machine Log Sheet Completed: Yes Machine Alarm Self Test: Completed, Passed (08/18/24799) Air Foam Detector: Tested, Proper Function, pH Reading Extracorporeal Circuit Tested for Integrity: Yes Machine Conductivity: 13.9 Manual Conductivity: 14 Manual Ph: 7.2 Bleach Test (Neg): Yes Bath Temperature: 36 C (96.8 F) Conductivity Meter Serial #: [id number] Machine Functioning Alarm Free? Yes Dialysis Bath: K+ (Potassium): 3 Ca+ (Calcium): 2.5 Na+ (Sodium): 137 HCO3 (Bicarb): 35 Bicarbonate Concentrate Lot No.: [id number] Acid Concentrate Lot No.: [id number] Chlorine Testing - Before each treatment and [...] Name: Sandy Deng Patient : 1960 Acct: [id number] Date of Admission: 08/12/2024 Room/Bed: T3321/T3321 A [...] artery Chest pain Chronic constipation Cigarette smoker [place]'s sign present Depressive disorder Diabetic ketoacidosis (CMS/HCC) [...] - Before each treatment: Dialysis Machine No.: [id number] RO Machine Number: [id number] Dialyzer Lot No.: [id number] Tubing Lot Number: [id number] All Connections Secure: Yes Venous Parameters Set: Yes Arterial Parameters Set: Yes NS Bag: Yes Saline Line Double Clamped: Yes Dialyzer: Nipro Prime Volume (mL): 200 mL RO Machine Number: [id number] RO Machine Log Sheet Completed: Yes Machine Alarm Self Test: Completed, Passed (1341) (08/16/24 134) Air Foam Detector: Tested, Proper Function Extracorporeal Circuit Tested for Integrity: Yes Machine Conductivity: 13.4 Manual Conductivity: 13.8 Manual Ph: 7.4 Bleach Test (Neg): Yes Bath Temperature: 36 C (96.8 F) Conductivity Meter Serial #: [id number] Machine Functioning Alarm Free? Yes Dialysis Bath: K+ (Potassium): 3 Ca+ (Calcium): 2.5 Na+ (Sodium): 137 HCO3 (Bicarb): 35 Bicarbonate Concentrate Lot No.: [id number] Acid Concentrate Lot No.: [id number] Chlorine Testing - Before each treatment and [...] Response to Education: Requires Follow-up * Deborah Carbajal RN - 08/13/2024 3:53 PM EDT Patient Name: Sandy Deng Patient : 1960 Acct: [id number] Date of Admission: 08/12/2024 Room[facility]: [facility] A Code Status: Full Code Allergies: [...] - Before each treatment: Dialysis Machine No.: [id number] Machine Number: [id number] All Connections Secure: Yes Venous Parameters Set: Yes Arterial Parameters Set: Yes NS Bag: Yes Saline Line Double Clamped: Yes Dialyzer: Nipro Prime Volume (mL): 200 mL Machine Number: [id number] RO Machine Log Sheet Completed: Yes Machine Alarm Self Test: Completed, Passed (08/13/24 152) Air Foam Detector: Tested, Proper Function, pH Reading Extracorporeal Circuit Tested for Integrity: Yes Machine Conductivity: 13.8 Manual Conductivity: 13.8 Manual Ph: 7 Bleach Test (Neg): Yes Bath Temperature: 36 C (96.8 F) Conductivity Meter Serial #: [id number] Machine Functioning Alarm Free? Yes Dialysis Bath: [...] Stroke team narrator completed. documented in this [facility]10-21-2024 Consult note* Eladio Lebron MD - 08/23/2024 [...] tablet by mouth 2 times daily. Cholecalciferol ([facility] Vitamin D3) 25 MCG (1000 UT) chewable [...] 10 days. Insulin Disposable Pump (Omnipod 5 MjgT1T1 Intro Gen 5) kit Insulin Disposable Pump (Omnipod 5 MrqH8R9 Pods Gen 5) misc insulin glargine (Lantus) [...] contact the on-call urology resident in the software applications specialist for void trial instructions. Would recommend doing void trial prior to the day of anticipated discharge if able. Follow up with urology for continued outpatient management Please page the it solutions architect urology resident with any questions or concerns [...] Provider, Continuous Glucose Sensor (D[facility]com G6 Sensor) [facility] Historical Provider, Continuous Glucose Transmitter (Dexcom G6 transmitter) [facility] 07/25/24 Historical Provider, estradiol (Estrace) 1 MG [...] Espana DO Insulin Disposable Pump (Omnipod 5 SviO7G0 Intro Gen 5) kit 12/03/23 Historical ProviderMD Insulin Disposable Pump (Omnipod 5 PjuC6X4 Pods Gen 5) misc 07/15/24 Historical Provider, [...] Normal [] Scar/Lesion/Mass Inspection of teeth/lips/gums Dentition: [x][place] Teeth []Dentures Lips/Gums: [x]Intact []Lesion Present Mucosa: []Dierks []Moist [x]Dry Neck: External Appearance Overall Appearance: [...] 08/20/24 1024 08/20/24 1250 PHART 7.209* 7.244* HIU1EUS 71.5* 68.4* PO2ART 63.4* 36.2* BFK2HRT 27.9* 28.9* K1CYEGYJ Nasal cannula Bi-PAP Labs in Last 3 [...] PM EDT I have personally performed a wlvg-ts-eqdg diagnostic evaluation on this patient on date of /18/24. History, labs, imaging studies, and electronic medical record have been reviewed by me. This note documented by the [x]Critical Care Fellow []house cleaner []TONJA reflects my history, exam, and medical [...] from the original note were not included. [facility] - Infectious Diseases Attending Consult Note Reason for Consult: Respiratory distress, change in MS,lethargy, and pancytopenia and candiduria History of Present Illness: 63 F, DMT1, COPD on 4 L, recently admitted to [facility] form 07/26-08/10 for Respiratory failure, treated as aspiration pNA already, septic shock, off presors, UMA/CKD, and finally transferred to Rehab. Overthere she pulled her NC< and found altered, hypoxic, lethargic. Transferred back to [facility], and required NIV initially. Today she is [...] edema with small pleural effusions. Antimicrobials,Start/End Dates: Ecdnffx56/10- Impression: 63 F, admitted with: Respiratory distress- [...] days Referring physician: Elizabeth Tyler MD Outpatient Blanking Press Operator: Dr. Christy Huerta Reason for Consult UMA [...] hypercapneic respiratory failure. 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 Baseline Cr had been 2.4-2.8, last (04/26) Cr 2.4 eGFR 20, 24 hr zzrcokl=5919 mg. -Suspected ATN in setting of infection/HD [...] -S/p 1 dose vanc -ID evaluating Access: [facility] 07/29 Case was discussed with ICU team. [...] call with any questions. Saroj Gaffney MD [facility] ([facility]) Office phone: [phone] Office fax: [phone] Pager: [phone] 08/13/24 History of Present Illness Sandy Deng [...] with hypercapneic respiratory failure. Recently discharged to [facility] from [facility] after admission for sepsis/shock as above. Now [...] MAR, labs and imaging as above. * Sahnti Bianchi NP - 08/13/2024 9:40 AM EDTAssociated Order(s): IP WOUND CARE NURSE CONSULT TO EVAL Images from the original note were not included. [facility] Wound Care CONSULT Note Sandy Deng AGE: [...] tablet by mouth 2 times daily. Cholecalciferol ([facility] Vitamin D3) 25 MCG (1000 UT) chewable [...] to follow Recommend to follow up at [facility] Outpatient wound care center after hospital discharge. [...] Name: Sandy Deng Patient : 1960 Acct: [id number] Date of Admission: 08/12/2024 [facility] A PCP: Bird Lujan Stroke team; [...] mouth 2 times daily. Historical Provider, Cholecalciferol ([facility] Vitamin D3) 25 MCG (1000 UT) chewable tablet Chew. Historical Provider, clopidogrel (Plavix) 75 MG tablet Take 1 tablet by mouth daily. Historical Provider, Continuous Glucose Sensor (Dexcom G6 Sensor) [facility] 07/22/24 Historical Provider, Continuous Glucose Transmitter (Dexcom G6 transmitter) [facility] 07/25/24 Historical Provider, estradiol (Estrace) 1 MG [...] Espana DO Insulin Disposable Pump (Omnipod 5 [id number] Intro Gen 5) kit 12/03/23 Historical Provider, Insulin Disposable Pump (Omnipod 5 GskO3C8 Pods Gen 5) misc 07/15/24 Historical Provider, [...] 445 ms QTC Interval 450 ms P [place] 76 degrees QRS [place] -24 degrees T Wave [place] [address] Interval 162 ms Basic metabolic panel Collection [...] PM Result Value Ref Range PRODUCT CODE [id number] Unit Number [id number] Unit ABO O Unit RH POS Crossmatch [...] non thrombolytic stroke workup documented in this [facility]10-21-2024 Hospital Discharge instructions* Discharge Instr - CHELO* [...] Bobbi Steward Mobile Relation: Daughter Preferred language: Bahamian Crab Steamer needed? No Secondary Emergency Contact: IshJose Mobile Relation: Spouse Preferred language: Bahamian Crab Steamer needed? No Past Surgical History: Past Surgical [...] assistance Toileting Minimal assistance Feeding Minimal assistance Mercury Recoverer Minimal assistance Med Delivery yes Wound Care [...] 08/18/24 Pressure Injury Coccyx (Active) Site Assessment Painful;Pale;Dierks 08/23/24 08 Rosana-Wound Assessment Blanchable erythema;Fragile;Intact 08/23/24 [...] Rehab Therapies: physical therapy, occupational therapy, social work coordinator, and recreation therapy Weight Bearing Status/Restrictions: no restriction Other Medical Equipment (for information only, NOT a DME order): none Other Treatments: n/a Patient's personal belongings (please select all that are sent with patient): none RN SIGNATURE: MANAGEMENT/SOCIAL WORK SECTION Inpatient Status Date: 08/12/2024 Discharging to Facility/ Agency Name: [facility] Address: [address] [place] [address] Fax: Dialysis Facility (if applicable) Name: Address: Dialysis Schedule: Phone: Fax: Nutrient Management Specialist/[employer] signature: ICIAN SECTION Name: Sandy Deng Prognosis: {Rehab Prognosis:17666} Condition at Discharge: {Patient Condition:33398} Rehab Potential (if transferring to Rehab): {Rehab Prognosis:13909} Recommended Labs or Other Treatments After Discharge: The individual is being admitted to a nursing facility directly from an [facility] or a unit of a [facility] that is not operated by or licensed by [facility] under section 5119.14 or 5160-3-15.1 5 The individual requires the level of services provided by a nursing facility for the condition for which he or she was treated in the hospital and, Physician Certification: I certify the above information and transfer of Sandy Deng is necessary for the continuing treatment of the diagnosis listed and that she requires {CHELO Level of Care:89364} for {greater less than:37356} 30 days. Update Admission H&P: {CHELO Changes in H&P:72385} PHYSICIAN SIGNATURE: {E-signature:96045} documented in this [facility]10-11-2024 NoteReturn referral placed to [facility] re[facility] via [facility] per TCC request. Await review and response regarding ability to accept. TCC notified. [facility]10-11-2024 [facility]10-11-2024 Procedure note* Armen Diaz MD PhD - 08/13/2024 3:02 AM EDTAssociated Order(s): EEG CONTINUOUS MONITORING Images from the original note were not included. [facility] [address] [place] [address] CONTINUOUS LONG-TERM VIDEO EEG MONITORING REPORT Patient Name: Sandy Deng : 1960 Date of Study: 08/13/2024 Duration Recorded: 12-26 hrs EEG#: [id number] CLIN APPLICATION SPECIALIST: Adam Hudson PROVIDER REQUESTING STUDY: May Wang [...] tablet 75 mg 75 mg Oral Daily An aRosa Carlin DO dextrose 5 % infusion 100 [...] 4 mg IntraVENous q6h PRN Ana Rosakosta Pors, DO QUEtiapine (SEROquel) tablet 25 mg 25 mg Oral Nightly May Wang DO 25 mg at 08/13/24 0131 sodium chloride 0.9 % infusion 250 mL/hr IntraVENous PRN April Soto MD [Held by provider] tiotropium (Spiriva Respimat) 2.5 MCG/ACT inhaler 2 puff 2 puff Inhalation DailyAna Rosa Pros, DO TECHNICAL ASPECTS: This continuous scalp EEG study with video was carried out at [facility]. Scalp electrodeswere positioned in person by an applied technologist, following patient education, according to the 10-20 International system of electrode placement and maintained for integrity and quality of the recording. . EEG data with video was recorded continuously and digitally stored. The applied technologist reviewed all automated detections and manual [...] diffuse delta-theta range (1.5-7 Hz, 20-35 uV) rzmygdigy-bz-hsennhejzmwwcp slow wave activity was seen unresponsive to [...] EEG with video is abnormal. Continuous diffuse grujjrfl-jj-wfrjmq diffuse slowing is seen unresponsive to stimulation. REM sleep architecture is observed. At times, fronto-centrally predominant fast activity is observed reminiscent of sleep spindles. No interictal epileptiform activity nor seizures are observed. The findings are supportive of a ksxzniuh-im-olyzvl global encephalopathy non- specific as to etiology. Will continue video-EEG monitoring to evaluate the evolution of this encephalopathy. Jasmeet Arevalo, PhD Clinical Neurophysiologist Armen Diaz MD PhD Epilepsy Attending documented in this [facility]10-10-2024 NoteSoft restraints removed at this time. Dr. Hoang made aware. Clari Bronson RN 08/12/24 1634[facility]10-10-2024 Emergency department Note* Clari Bronson RN [...] 11:35 AM EDT Emergency Department Encounter [facility] EMERGENCY DEPT Patient: Sandy Deng : 1960 [...] [employer] Lucina Galvan DO 08/12/24 5356 * Sapphire Bianchi PA-C - 08/12/2024 11:35 [...] pneumonia, andrespiratory failure. Patient was discharged to [facility] 2 days ago, and today was [...] daily. Continuous Glucose Sensor (Dexcom G6 Sensor) [facility] Continuous Glucose Transmitter (Dexcom G6 transmitter) [facility] estradiol (Estrace) 1 MG tablet Take 1 [...] 10 days. Insulin Disposable Pump (Omnipod 5 WtyE9D5 Intro Gen 5) kit Insulin Disposable Pump (Omnipod 5 HcbF0M9 Pods Gen 5) misc insulin glargine (Lantus) [...] Confused Best Motor Response: Withdraws to pain [place] Coma Scale Score: 10 NIH Stroke Scale 1A. Level of Consciousness: Requires Repeated Stimulation to Arouse or Responds to Pain 1B. Ask Month and Age: No Questions Right 1C. Blink Eyes & Squeeze Hands: Performs 0 Tasks 2. Best Gaze: Normal 3. Visual: No Visual Loss 4. Facial Palsy: Normal Symmetrical Movements 5A. Motor - Left Arm: Some Effort Against [place] 5B. Motor - Right Arm: Some Effort Against [place] 6A. Motor - Left Leg: Some Effort Against [place] 6B. Motor - Right Leg: Some Effort Against [place] 7. Limb Ataxia: Absent 8. Sensory Loss: [...] Abnormal Glucose 259 (*) Narrative: Performed by: [facility], [address] [place] [address] CLIA ID: [id number] POCT GLUCOSE METER UNSOLICITED RESULTS - Abnormal Glucose 252 (*) Narrative: Performed by: [facility], [address] [place] [address] CLIA ID: [id number] POCT GLUCOSE METER UNSOLICITED RESULTS - Abnormal Glucose 253 (*) Narrative: Performed by: [facility], [address] [place] [address] CLIA ID: [id number] BLOOD CULTURE - Normal Blood Culture Blood [...] ACID WITH REFLEX PREPARE RBC PRODUCT CODE [id number] Unit Number [id number] Unit ABO O Unit RH POS Crossmatch interpretation COMP Dispense Status Transfused Blood Expiration Date Product Blood Type 5100 Unit Volume 300 PREPARE RBC PRODUCT CODE [id number] Unit Number [id number] Unit ABO O Unit RH POS Crossmatch [...] Department Physician in the absence of a thermal surfacing machine operator. Please see Epiphany for interpretation of [...] 40 mg (40 mg IntraVENous Given 08/13/24 556) albuterol 108 (90 Base) MCG/ACT inhaler 2 puff ( Inhalation Held by provider 08/12/24 0998) aspirin EC tablet 81 mg ( Oral [...] AM EDT Emergency Department Encounter Location: [facility] EMERGENCY DEPT Patient: Sandy Deng : 1960 [...] and respiratory failure. She was discharged to [facility] 2 days ago after beingadmitted for [...] 445 ms QTC Interval 450 ms P [place] 76 degrees QRS [place] -24 degrees T Wave [place] [address] Interval 162 ms XR chest 1 view [...] status and respiratoryfailure. She was discharged to [facility] 2 days ago after being admitted [...] 08/12/2024 5:46 PM EDT documented in this [facility]10-10-2024 History and physical note* Ana Rosa Carlin [...] been recently discharged 2 days ago to [facility], and today was found altered, nasal [...] mouth 2 times daily. Historical Provider, Cholecalciferol ([facility] Vitamin D3) 25 MCG (1000 UT) chewable tablet Chew. Historical Provider, clopidogrel (Plavix) 75 MG tablet Take 1 tablet by mouth daily. Historical Provider, Continuous Glucose Sensor (Dexcom G6 Sensor) [facility] 07/22/24 Historical Provider, Continuous Glucose Transmitter (Dexcom G6 transmitter) [facility] 07/25/24 Historical Provider, estradiol (Estrace) 1 MG [...] Espana DO Insulin Disposable Pump (Omnipod 5 VldC2U8 Intro Gen 5) kit 12/03/23 Historical Provider, Insulin Disposable Pump (Omnipod 5 DuvD2Y4 Pods Gen 5) misc 07/15/24 Historical Provider, [...] Normal [] Scar/Lesion/Mass Inspection of teeth/lips/gums Dentition: [][place] Teeth []Dentures Lips/Gums: []Intact []Lesion Present Mucosa: []Dierks []Moist []Dry Neck: External Appearance Overall Appearance: [...] ABGs: Recent Labs 08/12/24 1337 08/12/24 1604 [id number] Nasal cannula Bi-PAP Lactic Acid: Recent Labs [...] PM EDT I have personally performed a liqn-ov-nvel diagnostic evaluation on this patient on date of sdmtuia70/10/24. History, labs, imaging studies, and electronic medical record have been reviewed by me. This note documented by the [x]house cleaner []TONJA reflects my history, exam, and medical [...] so far today, excludingprocedures. documented in this [facility]10-10-2024 [facility] 08-10-2024 Nurse Note* Jim Rodriguez RN - 08/10/2024 2:13 PM EDT Report called to nurse Syed at [facility]. This RN verified with Dr. Espana that pt is leavingwith johnson catheter. * Rene Euceda - 08/10/2024 9:05 AM EDT Patient Name: Sandy Deng Patient : 1960 Acct: [id number] Date of Admission: 07/26/2024 [facility] B Code Status: Full Code Allergies: No [...] - Before each treatment: Dialysis Machine No.: [id number] RO Machine Number: [id number] Dialyzer Lot No.: [id number] Tubing Lot Number: [id number] All Connections Secure: Yes Venous Parameters Set: Yes Arterial Parameters Set: Yes NS Bag: Yes Saline Line Double Clamped: Yes Dialyzer: Nipro Prime Volume (mL): 200 mL RO Machine Number: [id number] RO Machine Log Sheet Completed: Yes Machine Alarm Self Test: Completed, Passed (08/10/24 0945) Air Foam Detector: Tested, Proper Function, pH Reading Extracorporeal Circuit Tested for Integrity: Yes Machine Conductivity: 13.7 Manual Conductivity: 13.6 Machine Ph: 7 Manual Ph: 7.2 Bleach Test (Neg): Yes Bath Temperature: 36 C (96.8 F) Conductivity Meter Serial #: [id number] Machine Functioning Alarm Free? Yes Dialysis Bath: K+ (Potassium): 2 Ca+ (Calcium): 2.5 Na+ (Sodium): 136 HCO3 (Bicarb): 36 Bicarbonate Concentrate Lot No.: [id number] Acid Concentrate Lot No.: [id number] Chlorine Testing - Before each treatment and [...] 600 Yes pt resting, lines secure, removed 84816 08/10/24 1115 350 mL/min 970 ml/hr -160 [...] to Med Team resident and [facility]. 0639- 1mg IM glucagon given per resident. 0647- glucose confirmation came back at 216. 0654- D5 infusion discontinued at this time. * Yenny Keller RN - 08/07/2024 8:51 PM EDT Patient Name: Sandy Deng Patient : 1960 Acct: [id number] Date of Admission: 07/26/2024 [facility] B Code Status: Full Code Allergies: No [...] - Before each treatment: Dialysis Machine No.: [id number] RO Machine Number: [id number] Dialyzer Lot No.: [id number] Tubing Lot Number: [id number] All Connections Secure: Yes Venous Parameters Set: Yes Arterial Parameters Set: Yes NS Bag: Yes Saline Line Double Clamped: Yes Dialyzer: Nipro Prime Volume (mL): 200 mL RO Machine Number: [id number] RO Machine Log Sheet Completed: Yes Machine Alarm Self Test: Completed, Passed (1616) (08/07/24 1630) Air Foam Detector: pH Reading, Proper Function, Tested Extracorporeal Circuit Tested for Integrity: Yes Machine Conductivity: 13.6 Manual Conductivity: 13.6 Machine Ph: 7 Manual Ph: 7 Bleach Test (Neg): Yes Bath Temperature: 36 C (96.8 F) Conductivity Meter Serial #: [id number] Machine Functioning Alarm Free? Yes Dialysis Bath: K+ (Potassium): 2 Ca+ (Calcium): 2.5 Na+ (Sodium): 136 HCO3 (Bicarb): 36 Bicarbonate Concentrate Lot No.: [id number] Acid Concentrate Lot No.: [id number] Chlorine Testing - Before each treatment and [...] Name: Sandy Deng Patient : 1960 Acct: [id number] Date of Admission: 07/26/2024 Room/Bed: T2-213/T2-213 A [...] Alert (0) X3 Regular Nasal cannula Diminished Dierks Warm;Dry Soft;Flat Present Other (Comment) Other (Comment) [...] - Before each treatment: Dialysis Machine No.: [id number] RO Machine Number: [id number] Dialyzer Lot No.: [id number] Tubing Lot Number: [id number] All Connections Secure: Yes Venous Parameters Set: Yes Arterial Parameters Set: Yes NS Bag: Yes Saline Line Double Clamped: Yes Dialyzer: Nipro Prime Volume (mL): 200 mL RO Machine Number: [id number] RO Machine Log Sheet Completed: Yes Machine Alarm Self Test: Completed, Passed (2103) (08/05/242103) Air Foam Detector: Tested, Proper Function Extracorporeal Circuit Tested for Integrity: Yes Machine Conductivity: 13.5 Manual Conductivity: 13.4 Manual Ph: 7.8 Bleach Test (Neg): Yes Bath Temperature: 36 C (96.8 F) Conductivity Meter Serial #: [id number] Machine Functioning Alarm Free? Yes Dialysis Bath: K+ (Potassium): 2 Ca+ (Calcium): 2.5 Na+ (Sodium): 136 HCO3 (Bicarb): 36 Bicarbonate Concentrate Lot No.: [id number] Acid Concentrate Lot No.: [id number] Chlorine Testing - Before each treatment and [...] blanchable erythema. Prevention Measures in place, including: [place] sheet with pillows/wedges, Foam heel protectors (changed), [...] Name: Sandy Deng Patient : 1960 Acct: [id number] Date of Admission: 07/26/2024 Room/Bed: T2-213/T2-213 A [...] RN (First Initial, Last Name, Title): Familia Saucedo RN Incapacitated Nurse Education Completed: Not [...] - Before each treatment: Dialysis Machine No.: [id number] Machine Number: [id number] All Connections Secure: Yes Venous Parameters Set: Yes Arterial Parameters Set: Yes NS Bag: Yes Saline Line Double Clamped: Yes Dialyzer: Nipro Prime Volume (mL): 200 mL Machine Number: [id number] RO Machine Log Sheet Completed: Yes Machine Alarm Self Test: Completed, Passed (08/03/24 1051) Air Foam Detector: Tested, Proper Function, pH Reading Extracorporeal Circuit Tested for Integrity: Yes Machine Conductivity: 13.7 Manual Conductivity: 13.6 Manual Ph: 7 Bleach Test (Neg): Yes Bath Temperature: 36 C (96.8 F) Conductivity Meter Serial #: [id number] Machine Functioning Alarm Free? Yes Dialysis Bath: [...] -120 mmHg 140 mmHg 80 600 Yes field case manager RN at bedside to speak [...] RN (First Initial, Last Name, Title): Familia Saucedo RN Education Person Educated: Patient Knowledge Base: [...] get Xray. Restarted Fentanyl. Precedex maxed. * Oim Katz RN - 07/30/2024 2:50 PM EDT Patient got ahold of suction tubing on ET tube. Pulled her ET tube out a couple centimeters. Respiratory therapist notified. * Omi Katz RN - 07/29/2024 4:20 PM EDT Patient [...] Set disposed. Vas cath lines flushed. * mOi Katz RN - 07/29/2024 8:12 AM EDT [...] paused d/t access line clotting at approximately 4529-7670. Trouble shooting attempted. Cath flow ordered and given at 0646. documented in this [facility]10-08-2024 History of Present illness Narrative* Saroj Gaffney MD - 08/10/2024 12:17 PM EDT Images from the original note were not included. Nephrology Progress Note Patient: Sandy Deng Room number: W3-339/W3-339 B Date of Admit: 07/26/2024 LOS: 15 days Admitting physician: Ino Conte MD Referring physician: Fly De La Garza DO Outpatient Blanking Press Operator: Christy Huerta DO Assessment/Plan: 63 year old [...] been 2.4-2.8, last (04/26) Cr 2.4 eGFR kdcesazzq=6417 mg. -Suspected ATN in setting of infection/HD [...] mg IV lasix Anemia: Hgb 7.8 Access: [facility] 07/29 Recommendations: -HD today, continue TTS for now -Can continue lasix on HD off days to assist volume removal -Continue strict I/Os and daily renal function panel to monitor for recovery -Await repeat complements Thank you for this consult, we will continue to follow. Please call or page if any questions [facility] Pager: [phone] Office: [phone]. Office Subjective: Interval history/events: Seen and evaluated [...] IRON, TIBC, FERRITIN No results found for: [id number], FOLATE Recent Labs 08/08/24 0017 08/09/24 0035 [...] PHOS 4.5 08/10/2024 No components found for: [id number] Diagnostic Studies: CXR 08/08 Findings: Right IJ [...] Type 1 diabetes. Initially patient presented to [facility] on 07/23 with acute respiratory distress [...] the nightstand. Pt was then transferred to [facility]. Initial infectious workup returned with CTX-M Pseudomonas [...] (04/26) Cr 2.4 eGFR 20, 24 hr zfiihqj=6852 mg. - On admit, (07/26) Cr 4.56, [...] evaluated at bedside; recommend continuation of acute PIE BAKER diet - Monitor adequacy of PO for [...] and C4 complement [facility]: [facility] arranged for today at 2 pm [...] case she was type I. [facility]. 7AM-5PM: contact resident on [facility] Med A (find by hovering over attending's name on left side of patient's chart) 5PM-7AM: contact MAKI stanton * Sada Fernandez, RICKY - 08/09/2024 4:36 PM EDT Nutrition Assessment Type and Reason for Visit: Reassess Nutrition Recommendations/Plan: Continue current diet per PIE BAKER. Per MNT, will discontinue Ensure d/t thickened [...] mass loss Fluid Accumulation: Mild Extremities, Generalized Preparer Samples And Repairs Strength: Not Performed Nutrition Assessment: Pt PMH of COPD, diabetic neuropathy, hx of NSTEMI, stage 4 CKD (on HD TTS), and Type 1 diabetes. Initially patient presented to [facility] on 07/23 with acute respiratory distress [...] the nightstand. Pt was then transferred to [facility]. Initial infectious workup returned with CTX-M Pseudomonas and S aureus identified on pneumonia PCR. Patient went into septic shock, requiring pressors, now resolved. Patient no longer on antibiotics. Patient saturating well on 3-4L NC. Home O2 requirement of 3L. Pt first advanced to PO diet 08/01; advanced to Regular/nectar thick per PIE BAKER recs today. Pt was sleepingat time of RD assessment and did not wake to name call. No trays at bedside to assess. Estimated Daily Nutrient Needs: Energy Requirements Based On: Kcal/kg Weight Used for Energy Requirements: [place] Weight for Energy Calculation (kg): 59 kg Total Energy Requirements (kcals/day): 25-30 kcals/kg = 0007-8034 kcals/day Weight Used for Protein Requirements: [place] Weight in Kg Used for Protein Requirements: [...] Nutrition Therapies: Adult diet Regular; Mildly Thick ([place]) Current Oral Intake Average Meal Intake: 76-100% (per flowsheet) Average Supplements Intake: None Ordered Anthropometric Measures: Height: 167.6 cm (5' 5.98) Current Body Weight: 57.2 kg (126 lb) (08/07) Weight Source: Bed Scale Admission Body Weight: 48 kg (105 lb 13.1 oz) [place] Body Weight (lbs) (Calculated): 130 lbs [place] Body Weight (Kg) (Calculated): 59 kg % [place] Body Weight (Calculated): 105.1 % BMI (kg/m2) [...] to determine Sada Fernandez RD, LD Contact: [phone] * Saroj Gaffney MD - 08/09/2024 1:34 PM EDT Images from the original note were not included. Nephrology Progress Note Patient: Sandy Deng Room number: [id number] B Date of Admit: 07/26/2024 LOS: 14 days Admitting physician: Ino Conte MD Referring physician: Fly De La Garza DO Outpatient Blanking Press Operator: Christy Huerta DO Assessment/Plan: 63 year old [...] last (04/26) Cr 2.4 eGFR , 24 bicndplxb=2220 mg. -Suspected ATN in setting of infection/HD [...] Please call or page if any questions [facility] Pager: [phone] Office: [phone]. Office Subjective: Interval history/events: Seen at bedside [...] IRON, TIBC, FERRITIN No results found for: [id number], FOLATE Recent Labs 08/07/24 0106 08/08/24 0017 [...] PHOS 4.1 08/09/2024 No components found for: [id number] Diagnostic Studies: CXR 08/08 Findings: Right IJ [...] not included. Speech-Language Pathology SPEECH LANGUAGE PATHOLOGY [facility] Dysphagia Treatment Note Patient Name: Sandy Deng Evaluation Date: 08/09/2024 Date of : 1960 Admission Date: 07/26/2024 4:17 PM Age: 63 y.o. Room/Bed: [address]-[facility] B Subjective Patient was able to awaken but appeared somnolent. Family and RN reported patient with decreased POintake with current diet restrictions. Current Diet: Dietary Orders (From admission, onward) Start Ordered 08/04/24 1610 Adult diet Dysphagia - Pureed; Mildly Thick ([place]) Diet effective now Comments: Medications crushed and placed in pureed foods. Question Answer Comment Diet type Dysphagia - Pureed Fluid consistency Mildly Thick ([place]) 08/04/24 1611 08/03/24 1639 Supplement:PM Snack, HS [...] for dietadvancement. Plan & Recommendations Continue acute PIE BAKER therapy per initial plan of care and [...] Start: 08/04/24 Expected End: 08/18/24 Therapy Time PIE BAKER Individual Minutes Time In: 1125 Time Out: 1135 Minutes: 10 Shanti Bianchi MA, CCC/PIE BAKER * Amy Dorado, NURSE ANESTHESIA PROGRAM DIRECTOR - 08/09/2024 8:47 AM EDT Images from the original note were not included. PHYSICAL THERAPY [facility] Treatment Note Name/MRN: Sandy Deng ([id number]) Date of : 1960 Age: 63 y.o. Room/Bed: [facility]/3[facility] B Discharge Recommendation: IP Rehab Equipment Needed: [...] SBA for short periods. Standing with this NURSE ANESTHESIA PROGRAM DIRECTOR directly in front of pt, postural sway, [...] Type 1 diabetes. Initially patient presented to [facility] on 07/23 with acute respiratory distress [...] the nightstand. Pt was then transferred to [facility]. Initial infectious workup returned with CTX-M Pseudomonas [...] (04/26) Cr 2.4 eGFR 20, 24 hr rtwybxg=4685 mg. - On admit, (07/26) Cr 4.56, [...] evaluated at bedside; recommend continuation of acute PIE BAKER therapy - Diet order of Regular solids [...] for now. 7AM-5PM: contact resident on [facility] Med A (find by hovering over attending's name on left side of patient's chart) 5PM-7AM: contact MAKI stanton * Jamey Muro OT - 08/08/2024 10:44 AM EDT Images from the original note were not included. OCCUPATIONAL THERAPY [facility] Treatment Note Name/MRN: Sandy Deng ([id number]) Date of : 1960 Age: 63 y.o. [...] original note were not included. PHYSICAL THERAPY [facility] Treatment Note Name/MRN: Sandy Deng ([id number]) Date of : 1960 Age: 63 y.o. [...] Type 1 diabetes. Initially patient presented to [facility] on 07/23 with acute respiratory distress [...] the nightstand. Pt was then transferred to [facility]. Initial infectious workup returned with CTX-M Pseudomonas [...] (04/26) Cr 2.4 eGFR 20, 24 hr axfwybm=7702 mg. - On admit, (07/26) Cr 4.56, [...] evaluated at bedside; recommend continuation of acute PIE BAKER therapy - Diet order on pureed solids [...] any point. 7AM-5PM: contact resident on [facility] Med A (find by hovering over attending's [...] days Referring physician: Ino Conte MD Outpatient Blanking Press Operator: Christy Huerta DO ASSESSMENT/PLAN: UMA on CKD 4 - Cr has been 2.4-2.8, last (04/26) Cr 2.4 eGFR 20, 24 hr zjtudrw=1131 mg. - On admit, (07/26) Cr 4.56, [...] initial consultation. Interval history reviewed: transferred to [facility] Patient reports breathing comfortably Appetite has bene [...] IRON, TIBC, FERRITIN No results found for: [id number], FOLATE No results found for: COLORU, CLARITYU, [...] LABFUNG IMAGING: POCT glucose meter Performed by: [facility], [address] [place] [address] CLIA ID: [id number] Signed: Jose Carlos Medrano MD Nephrology [facility] ([facility]) Pager: [phone] Office Office * Khai Ye Jovi, DO [...] Type 1 diabetes. Initially patient presented to [facility] on 07/23 with acute respiratory distress [...] the nightstand. Pt was then transferred to [facility]. Initial infectious workup returned with CTX-M Pseudomonas [...] (04/26) Cr 2.4 eGFR 20, 24 hr ronsnqn=0409 mg. - On admit, (07/26) Cr 4.56, [...] evaluated at bedside; recommend continuation of acute PIE BAKER therapy - Diet order on pureed solids [...] original note were not included. PHYSICAL THERAPY [facility] Treatment Note Name/MRN: Sandy Deng ([id number]) Date of : 1960 Age: 63 y.o. [...] Timed Code Treatment Minutes: 11 Minutes (FA) NURSE ANESTHESIA PROGRAM DIRECTOR wore PPE in compliance with hospital guidelines and regulation when treating this patient. Elle Israel, NURSE ANESTHESIA PROGRAM DIRECTOR * Sandy MarieUriel Bangura, LI - 08/06/2024 11:26 AM EDT Images from the original note were not included. OCCUPATIONAL THERAPY [facility] Treatment Note Name/MRN: Sandy Deng ([id number]) Date of : 1960 Age: 63 y.o. [...] not included. Speech-Language Pathology SPEECH LANGUAGE PATHOLOGY [facility] Dysphagia Treatment Note Patient Name: Sandy Deng Evaluation Date: 08/06/2024 Date of : 1960 Admission Date: 07/26/2024 4:17 PM Age: 63 y.o. Room/Bed: [facility] A Subjective Patient was awake and cooperative. Current Diet: Dietary Orders (From admission, onward) Start Ordered 08/04/24 1610 Adult diet Dysphagia - Pureed; Mildly Thick ([place]) Diet effective now Comments: Medications crushed and placed in pureed foods. Question Answer Comment Diet type Dysphagia - Pureed Fluid consistency Mildly Thick ([place]) 08/04/24 1611 08/03/24 1639 Supplement:PM Snack, HS [...] wheat. Plan & Recommendations Plan: Continue acute PIE BAKER therapy per initial plan of care and [...] x 16. Plan & Recommendations Continue acute PIE BAKER therapy per initial plan of care and [...] Start: 08/04/24 Expected End: 08/18/24 Therapy Time PIE BAKER Individual Minutes Time In: 1000 Time Out: 1010 Minutes: 10 Shanti Bianchi MA, CCC/PIE BAKER * GUILLERMO Dorantes - 08/06/2024 8:02 AM EDT Images from the original note were not included. OCCUPATIONAL THERAPY [facility] Name/MRN: Sandy Deng ([id number]) Date: 08/06/2024 Hold OT this a.m.; HgB [...] Type 1 diabetes. Initially patient presented to [facility] on 07/23 with acute respiratory distress [...] the nightstand. Pt was then transferred to [facility]. Initial infectious workup returned with CTX-M Pseudomonas [...] evaluated at bedside; recommend continuation of acute PIE BAKER therapy - Diet order on pureed solids [...] original note were not included. OCCUPATIONAL THERAPY [facility] Treatment Note Name/MRN: Sandy Deng ([id number]) Date of : 1960 Age: 63 y.o. [...] assist due to retro-grade balance Device(s) used: [facility] Cognition - Arousal/alertness: appropriate responses to stimuli [...] tested positive for COVID on 07/24. At [facility] ICU she had worsening hypoxia and was placed on NIV but failed. Was ultimately intubated. Noted to be hypotensive and started on levophed. Ptwas transferred to [facility] for higher level of care. On arrival [...] Normal [] Scar/Lesion/Mass Inspection of teeth/lips/gums Dentition: [][place] Teeth []Dentures Lips/Gums: [x]Intact []Lesion Present Mucosa: [x]Dierks [x]Moist []Dry Neck: External Appearance Overall Appearance: [...] 17.7* ABGs: No results for input(s): PHART, TQF3PWD, PO2ART, FSJ0IOL, SO2ART, I9ONTBNX in thelast 72 hours. Lactic Acid: Recent [...] and Plan: Principal Problem: SDH (subdural hematoma) ([facility]) Active Problems: COPD (chronic obstructive pulmonary disease) [...] evaluated at bedside; recommend continuation of acute PIE BAKER therapy On Pureed solids and Mildly thick [...] original note were not included. PHYSICAL THERAPY [facility] Treatment Note Name/MRN: Sandy Deng ([id number]) Date of : 1960 Age: 63 y.o. [...] TP) Jennifer Saldaña, JEY * Svitlana Albarran, CCC-PIE BAKER - 08/05/2024 9:22 AM EDT Images from the original note were not included. Speech-Language Pathology SPEECH LANGUAGE PATHOLOGY [facility] Dysphagia Treatment Note Patient Name: Sandy Deng [...] Adult diet Dysphagia - Pureed; Mildly Thick ([place]) Diet effective now Comments: Medications crushed and placed in pureed foods. Question Answer Comment Diet type Dysphagia - Pureed Fluid consistency Mildly Thick ([place]) 08/04/24 1611 08/03/24 1639 Supplement:PM Snack, HS [...] wheat. Plan & Recommendations Plan: Continue acute PIE BAKER therapy per initial plan of care and [...] Start: 08/04/24 Expected End: 08/18/24 Therapy Time PIE BAKER Individual Minutes Time In: 08 Time Out: 909 Minutes: 17 Svitlana Albarran CCC-PIE BAKER * Jose Carlos Medrano MD - 08/05/2024 8:09 AM EDT Images from the original note were not included. NEPHROLOGY SOAP NOTE Visit date: 08/05/24, 8:10 AM Patient: Sandy Deng Room number: T2-213/T2-213 A Date of Admit: 07/26/2024 LOS: 10 days Referring physician: Saroj Sadler MD Outpatient Blanking Press Operator: Christy Huerta DO ASSESSMENT/PLAN: UMA on CKD 4 - Cr has been 2.4-2.8, last (04/26) Cr 2.4 eGFR 20, 24 hr uclkqts=0138 mg. - On admit, (07/26) Cr 4.56, [...] IRON, TIBC, FERRITIN No results found for: [id number], FOLATE No results found for: COLORU, CLARITYU, [...] Narrative: [facility] Name[facility]Y DENG : 1960 [id number] Exam Date/Time: 08/05/2024 03:09 Procedure: XR CHEST [...] EDT Signed: Jose Carlos Medrano MD Nephrology [facility] ([place]) Pager: [phone] Office Office * Janell Booker MD - [...] stable at this time. * Shanti Bianchi PIE BAKER - 08/04/2024 2:59 PM EDT Images from the original note were not included. Speech-Language Pathology SPEECH LANGUAGE PATHOLOGY [facility] Modified Barium Swallow Study Patient Name: Sandy Deng Evaluation Date: 08/04/2024 Date of : 1960 Admission Date: 07/26/2024 4:17 PM Age: 63 y.o. Room/Bed: [facility]213/[facility] A IMPRESSION: The patient presents with moderate [...] aspiration. Pt would benefit from skilled acute PIE BAKER services to initiate oropharyngeal exercises, ensure diet [...] Diagnosis Date COPD (chronic obstructive pulmonary disease) ([facility]) Diabetic neuropathy ([facility]) Hyperlipidemia Myocardial infarct ([facility]) Stage 4 chronic kidney disease ([facility]) Type 1 diabetes ([facility]) Past Surgical History: Past Surgical History: Procedure Laterality Date CORONARY ANGIOPLASTY WITH STENT PLACEMENT CORONARY ANGIOPLASTY WITH STENT PLACEMENT Admission Diagnosis: Patient Active Problem List Diagnosis Date Noted SDH (subdural hematoma) ([facility]) 07/26/2024 COPD (chronic obstructive pulmonary disease) ([facility]) 07/26/2024 Type 1 diabetes mellitus with kidney complication ([facility]) 07/26/2024 Myocardial infarction ([facility]) 07/26/2024 Hyperlipidemia 07/26/2024 Diabetic neuropathy associated with type 1 diabetes mellitus ([facility]) 07/26/2024 Stage 4 chronic kidney disease ([facility]) 07/26/2024 Pain: unable to answer but no evidence of same Reason for current admission: Found to have a subdural hematoma. She reportedly had a fall 1 month ago from bed. states she hit her head on the nightstand. She is on Plavix and ASA for a stent placed 7 years ago. Pt tested positive for COVID on 07/24. At [facility] ICU she had worsening hypoxiaand was placed on NIV but failed. Was ultimately intubated. Noted to be hypotensive and started on levophed. Pt was transferred to [facility] for higher level of care. On arrival [...] Start: 08/04/24 Expected End: 08/18/24 Therapy Time PIE BAKER Individual Minutes Time In: 1350 Time Out: 1410 Minutes: 20 Shanti Bianchi MA, CCC/PIE BAKER * May Wang, DO - 08/04/2024 11:22 AM EDT ICU [...] tested positive for COVID on 07/24. At [facility] ICU she had worsening hypoxia and was placed on NIV but failed. Was ultimately intubated. Noted to be hypotensive and started on levophed. Ptwas transferred to [facility] for higher level of care. On arrival [...] Normal [] Scar/Lesion/Mass Inspection of teeth/lips/gums Dentition: [][place] Teeth []Dentures Lips/Gums: []Intact []Lesion Present Mucosa: []Dierks []Moist []Dry Neck: External Appearance Overall Appearance: [...] 17.4* ABGs: No results for input(s): PHART, KYS3FNS, PO2ART, DEL6RVH, SO2ART, D6MLAIJM in thelast 72 hours. Lactic Acid: No [...] and Plan: Principal Problem: SDH (subdural hematoma) ([facility]) Active Problems: COPD (chronic obstructive pulmonary disease) [...] DVT Prophylaxis: Heparin subcutaneous Disposition: Transfer to [facility] I performed a history and physical examination [...] plan. Saroj Sadler MD * Svitlana Albarran, [facility]-PIE BAKER - 08/04/2024 9:23 AM EDT Images from the original note were not included. Speech-Language Pathology SPEECH LANGUAGE PATHOLOGY [facility] Dysphagia Treatment Note Patient Name: Sandy Deng Evaluation Date: 08/04/2024 Date of : 1960 Admission Date: 07/26/2024 4:17 PM Age: 63 y.o. Room/Bed: [facility]213/213 A Subjective Patient alert and cooperative. Seen [...] liquids. Plan & Recommendations Plan: Continue acute PIE BAKER therapy per initial plan of care and [...] Start: 08/04/24 Expected End: 08/18/24 Therapy Time PIE BAKER Individual Minutes Time In: 0855 Time Out: 0905 Minutes: 10 Svitlana Albarran CCC-PIE BAKER * Shanti García RD - 08/03/2024 4:36 [...] mass loss Fluid Accumulation: Mild Extremities, Generalized Preparer Samples And Repairs Strength: Not Performed Nutrition Assessment: Pt is a 63-year-old female with multiple medical co-morbidities including Type I DM (on insulin pump), COPD on 4L home O2, CKD4, on ASA/Plavix who [facility] presented [facility] withacute respiratory distress and acute delirium. 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 She was found to be hypoxic and hypercarbic, and COVID positive. She continued to be delirious and did not tolerate NIV, and required intubation 07/27/24. A CT head was done to evaluate her altered mental status, and she was found to have a small acute right sided SDH vs. epidural hematoma. For this reason, [facility] wa consulted for further neurologic management and [...] act but not able to answer questinos. PIE BAKER evaluated pt today 08/03/24 and recommends a soft and bitesized diet; pt is on same. Estimated Daily Nutrient Needs: Energy Requirements Based On: Kcal/kg Weight Used for Energy Requirements: [place] Weight for Energy Calculation (kg): 59 kg Total Energy Requirements (kcals/day): 25-30 kcals/kg = 3254-5264 kcals/day Weight Used for Protein Requirements: [place] Weight in Kg Used for Protein Requirements: [...] Weight: 48 kg (105 lb 13.1 oz) [place] Body Weight (lbs) (Calculated): 130 lbs [place] Body Weight (Kg) (Calculated): 59 kg % [place] Body Weight (Calculated): 105.1 % BMI (kg/m2) [...] Planning: Too soon to determine Shanti García RD,LD,[facility] Contact: *[phone] or [employer] Chat * Jose Carlos Medrano MD - 08/03/2024 1:32 PM EDT Images from the original note were not included. NEPHROLOGY SOAP NOTE Visit date: 08/03/24, 1:32 PM Patient: Sandy Deng Room number: T2-213/T2-213 A Date of Admit: 07/26/2024 LOS: 8 days Referring physician: Fly De La Garza DO Outpatient Blanking Press Operator: Christy Huerta DO ASSESSMENT/PLAN: Non oliguric UMA on CKD 4 - Cr has been 2.4-2.8, last (04/26) Cr 2.4 eGFR 20, 24 hr lxbrzpq=9411 mg. - On admit, (07/26) Cr 4.56, [...] IRON, TIBC, FERRITIN No results found for: [id number], FOLATE No results found for: COLORU, CLARITYU, [...] LABFUNG IMAGING: POCT glucose meter Performed by: [facility], [address] [place] [id number] CLIA ID: [id number] POCT glucose meter Performed by: [facility], [address] [place] [id number] CLIA ID: [id number] POCT glucose meter Performed by: [facility], [address] [place] [id number] CLIA ID: [id number] Signed: Jose Carlos Medrano MD Nephrology [facility] ([facility]) Pager: [phone] Office Office * RENATO Kern - 08/03/2024 9:46 AM EDT Images from the original note were not included. Speech-Language Pathology SPEECH LANGUAGE PATHOLOGY [facility] Dysphagia Treatment Note Patient Name: Sandy Deng [...] per dysphagia plan of care. Continue acute PIE BAKER therapy per initial plan of care and [...] Start: 08/01/24 Expected End: 08/15/24 Therapy Time PIE BAKER Individual Minutes Time In: 922 Time Out: 934 Minutes: 12 RENATO Kern * Jennifer Saldaña - 08/03/2024 9:36 AM EDT Images from the original note were not included. PHYSICAL THERAPY [facility] Initial Evaluation Name/MRN: Sandy Deng ([id number]) Evaluation Date: 08/03/2024 Date of : 1960 [...] List Diagnosis Date Noted SDH (subdural hematoma) ([facility]) 07/26/2024 COPD (chronic obstructive pulmonary disease) ([facility]) 07/26/2024 Type 1 diabetes mellitus with kidney complication ([facility]) 07/26/2024 Myocardial infarction ([facility]) 07/26/2024 Hyperlipidemia 07/26/2024 Diabetic neuropathy associated with type 1 diabetes mellitus ([facility]) 07/26/2024 Stage 4 chronic kidney disease ([facility]) 07/26/2024 Medical Precautions: No active isolations Proper [...] Responsibilities: Independent Receives Help From: Spouse Active Check Examiner: N/A Prior Level of Function ADL Assistance: [...] Raw Score (No Stairs) : 10 [facility] Score: Transferred to chair/commode Plan Pt [...] of Care supervision is transferred to a [facility] Therapy Services Physical Therapist. Goals and/or treatment [...] tested positive for COVID on 07/24. At [facility] ICU she had worsening hypoxia and was placed on NIV but failed. Was ultimately intubated. Noted to be hypotensive and started on levophed. Pt was transferred to [facility] for higher level of care. On arrival [...] Normal [] Scar/Lesion/Mass Inspection of teeth/lips/gums Dentition: [x][place] Teeth []Dentures Lips/Gums: [x]Intact []Lesion Present Mucosa: [x]Dierks [x]Moist []Dry Neck: External Appearance Overall Appearance: [...] 18.1* ABGs: No results for input(s): PHART, KTF9MQM, PO2ART, ZLB4DRY, SO2ART, P6QUAWIL in the last 72 hours. Labs in [...] for soft and bite sized diet per PIE BAKER. Has not expressed desire to eat. -Start [...] original note were not included. PHYSICAL THERAPY [facility] Name/MRN: Sandy Deng ([id number]) Date: 08/02/2024 Attempt Note. PT Eval and [...] Warner RCP - 08/02/2024 12:05 PM EDT [facility] Respiratory Care Department Progress Note As [...] not included. Speech-Language Pathology SPEECH LANGUAGE PATHOLOGY [facility] Dysphagia Treatment Note Patient Name: Sandy Deng [...] per dysphagia plan of care. Continue acute PIE BAKER therapy per initial plan of care and [...] Start: 08/01/24 Expected End: 08/15/24 Therapy Time PIE BAKER Individual Minutes Time In: 1057 Time Out: 1106 Minutes: 9 RENATO Kern * Jamey Muro OT - 08/02/2024 11:09 AM EDT Images from the original note were not included. OCCUPATIONAL THERAPY [facility] Initial Evaluation Name/MRN: Sandy Deng ([id number]) Evaluation Date: 08/02/2024 Date of : 1960 [...] List Diagnosis Date Noted SDH (subdural hematoma) ([facility]) 07/26/2024 COPD (chronic obstructive pulmonary disease) ([facility]) 07/26/2024 Type 1 diabetes mellitus with kidney complication ([facility]) 07/26/2024 Myocardial infarction ([facility]) 07/26/2024 Hyperlipidemia 07/26/2024 Diabetic neuropathy associated with type 1 diabetes mellitus ([facility]) 07/26/2024 Stage 4 chronic kidney disease ([facility]) 07/26/2024 Medical Precautions: No active isolations Proper [...] Responsibilities: Independent Receives Help From: Spouse Active Check Examiner: N/A Prior Level of Function ADL Assistance: [...] of Care supervision is transferred to a [facility] Therapy Services Occupational Therapist. Goals and/or treatment plan was established in collaboration with patient/family/other representatives. * Karyn Jones MD - 08/02/2024 10:06 AM EDT Images from the original note were not included. Nephrology Progress Note Patient: Sandy Deng Room number: T2-213/T2-213 A Date of Admit: 07/26/2024 LOS: 7 days Referring physician: Saroj Sadler MD Outpatient Blanking Press Operator: Christy Huerta Assessment/Plan: Mrs. Sandy Deng is a 63 year old female with PMH of CKD 4, DM type 1, HTN, CAD, COPD (3L M8nwhvfljp), initially presenting with resp distress and delirium, Covid positive. She was eventuallyintubated. CT head showed a small right SDH. Consulted for UMA on CKD 4 - follows with Dr Wilson ([place]). On review of available labs, Cr has been 2.4-2.8, last (04/26) Cr 2.4 eGFR 20, 24 hr npaulzn=4388 mg. On admit, (07/26) Cr 4.56, CRRT initiation for severe acidosis in setting of hemodynamic instability 07/26-08/01. Renal plan: Non oliguric UMA on CKD 4 - Cr has been 2.4-2.8, last (04/26) Cr 2.4 eGFR 20, 24 hr lomlmve=9767 mg. - On admit, (07/26) Cr 4.56, [...] will start service tomorrow. Karyn Jones MD [facility] ([facility]) Pager [phone] Office phone: [phone] Office fax: [phone] 08/02/2024 Subjective Noted weekend events, episode of [...] Catheter-Output (mL): 5 mL [REMOVED] Urethral Catheter Yxavzgml-iun-Efpotf (mL): 0 mL Urethral Catheter Straight-tip;Temperature probe-Output [...] tested positive for COVID on 07/24. At [facility] ICU she had worsening hypoxia and was placed on NIV but failed. Was ultimately intubated. Noted to be hypotensive and started on levophed. Pt was transferred to [facility] for higher level of care. On arrival [...] Normal [] Scar/Lesion/Mass Inspection of teeth/lips/gums Dentition: [x][place] Teeth []Dentures Lips/Gums: [x]Intact []Lesion Present Mucosa: [x]Dierks [x]Moist []Dry Neck: External Appearance Overall Appearance: [...] 07/30/24 0936 07/31/24 0605 PHART 7.399 7.335* IHU4ORX 44.6 47.9* PO2ART 113.8* 143.8* XGM4VZJ 26.9* 25.0 J6JSDUJL 30% Oxygen Nasal cannula Labs in Last [...] and Plan: Principal Problem: SDH (subdural hematoma) ([facility]) Active Problems: COPD (chronic obstructive pulmonary disease) ([facility]) Type 1 diabetes mellitus with kidney complication [...] for soft and bite sized diet per PIE BAKER. Has not expressed desire to eat. -Start [...] PM EDT I have personally performed a qspf-cn-cvwq diagnostic evaluation on this patient on date of service08/02/24. History, labs, imaging studies, and electronic medical record have been reviewed by me. This note documented by the [x]house cleaner []TONJA reflects my history, exam, and medical [...] tested positive for COVID on 07/24. At [facility] ICU she had worsening hypoxia and was placed on NIV but failed. Was ultimately intubated. Noted to be hypotensive and started on levophed. Pt was transferred to [facility] for higher level of care. On arrival [...] time. Was cleared for pureed diet by PIE BAKER. Scheduled Meds:dexAMETHasone, 6 mg, IntraVENous, q24h Glycopyrrolate-Formoterol, [...] Normal [] Scar/Lesion/Mass Inspection of teeth/lips/gums Dentition: [x][place] Teeth []Dentures Lips/Gums: [x]Intact []Lesion Present Mucosa: [x]Dierks [x]Moist []Dry Neck: External Appearance Overall Appearance: [...] 0936 07/31/24 0605 PHART 7.370 7.399 7.335* EAQ5ROQ 46.3* 44.6 47.9* PO2ART 114.1* 113.8* 143.8* CRK5HDJ 26.2* 26.9* 25.0 Z1CJEZSW Vent 30% Oxygen Nasal cannula Labs in [...] PM EDT I have personally performed a ntui-mq-mafn diagnostic evaluation on this patient on date of service08/01/2024. History, labs, imaging studies, and electronic medical record have been reviewed by me. This note documented by the [x]house cleaner []TONJA reflects my history, exam, and medical [...] days Referring physician: Kena Heath DO Outpatient Blanking Press Operator: Christy Huerta Assessment/Plan: Mrs. Sandy Deng is a 63 year old female with PMH of CKD 4, DM type 1, HTN, CAD, COPD (3L B0iziwrrpi), initially presenting with resp distress and delirium, Covid positive. She was eventuallyintubated. CT head showed a small right SDH. Consulted for UMA on CKD 4 - follows with Dr Wilson ([place]). On review of available labs, Cr has been 2.4-2.8, last (04/26) Cr 2.4 eGFR 20, 24 hr ufarusi=5328 mg. On admit, (07/26) Cr 4.56, CRRT [...] Case discussed with MOODY. Joni Monson MD [facility] ([facility]) Office phone: [phone] Office fax: [phone] 08/01/2024 Subjective Patient seen this am during [...] Catheter-Output (mL): 5 mL [REMOVED] Urethral Catheter Ilonlmfe-qhx-Wodkym (mL): 0 mL Urethral Catheter Straight-tip;Temperature probe-Output [...] not included. Speech-Language Pathology SPEECH LANGUAGE PATHOLOGY [facility] Dysphagia Treatment Note Patient Name: Sandy Deng [...] PO diet. Plan & Recommendations Continue acute PIE BAKER therapy per initial plan of care and [...] Start: 08/01/24 Expected End: 08/15/24 Therapy Time PIE BAKER Individual Minutes Time In: 0845 Time Out: 0900 Minutes: 15 Shanti Bianchi MA, CCC/PIE BAKER * Joni Monson MD - 07/31/2024 2:48 PM EDT Images from the original note were not included. Nephrology Progress Note Patient: Sandy Deng Room number: T2-213/T2-213 A Date of Admit: 07/26/2024 LOS: 5 days Referring physician: Kena Heath DO Outpatient Blanking Press Operator: Christy Huerta Assessment/Plan: Mrs. Sandy Deng is a 63 year old female with PMH of CKD 4, DM type 1, HTN, CAD, COPD (3L I3hhjzlxhy), initially presenting with resp distress and delirium, Covid positive. She was eventuallyintubated. CT head showed a small right SDH. Consulted for UMA on CKD 4 - follows with Dr Wilson ([place]). On review of available labs, Cr has been 2.4-2.8, last (04/26) Cr 2.4 eGFR 20, 24 hr lnsjihf=7176 mg. On admit, (07/26) Cr 4.56, CRRT [...] care of this patient. Joni Monson MD [facility] ([facility]) Office phone: [phone] Office fax: [phone] 07/31/2024 Subjective Patient seen this am during [...] Catheter-Output (mL): 5 mL [REMOVED] Urethral Catheter Ryqrnmfn-jba-Zujpzp (mL): 0 mL Urethral Catheter Straight-tip;Temperature probe-Output [...] not included. Speech-Language Pathology SPEECH LANGUAGE PATHOLOGY [facility] Bedside Swallow Evaluation Patient Name: Sandy Deng [...] 08/01. Pt would benefit from skilled acute PIE BAKER services to address further assess po intake [...] be evaluated. Dysphagia History: No history of PIE BAKER services in EMR with retrospective chart review [...] List Diagnosis Date Noted SDH (subdural hematoma) ([facility]) 07/26/2024 COPD (chronic obstructive pulmonary disease) ([facility]) 07/26/2024 Type 1 diabetes mellitus with kidney complication ([facility]) 07/26/2024 Myocardial infarction ([facility]) 07/26/2024 Hyperlipidemia 07/26/2024 Diabetic neuropathy associated with type 1 diabetes mellitus ([facility]) 07/26/2024 Stage 4 chronic kidney disease ([facility]) 07/26/2024 History of Present Illness: 63 year old female with a PMHx of COPD (3L O2 baseline), DM, CKD 4, HTN, CAD, [place] (PCI with stents in 2017). at bedside. Pt was admitted to [facility] due to confusionand hallucinations. Pt has had episodes of staring off into space per family. Was found to have a subdural hematoma. She reportedly had a fall 1 month ago from bed. states she hit her head onthe nightstand. She is on Plavix and ASA for a stent placed 7 years ago. Pt tested positive for COVID on 07/24. Today at [facility] ICU she had worsening hypoxia and was placed on NIV but failed. Was ultimately intubated. Noted to be hypotensive and started on levophed. Pt was transferred to [facility] for higher level of care. On arrival [...] clinical dysphagia evaluation Start: 07/31/24 Therapy Time PIE BAKER Individual Minutes Time In: 1357 Time Out: 1419 Minutes: 22 RENATO Underwood * Joycelyn Guerra Benedicto, DO - 07/31/2024 7:54 AM EDT ICU Progress Note Name: Sandy Deng : 1960(63 y.o.) Date: 07/31/24 Team: MICU Attending: Dr. Jones Subjective: Hospital Summary: 63 year old female with a PMHx of COPD (3L O2 baseline), DM, CKD 4, HTN, CAD, [place] (PCI with stents in 2017). at bedside. Pt was admitted to [facility] due to confusion and hallucinations. Pt has had episodes of staring off into space per family. Was found to have a subdural hematoma. She reportedly had a fall 1 month ago from bed. states she hit her head on the nightstand. She is on Plavix and ASA for a stent placed 7 years ago. Pt tested positive for COVID on 07/24. Today at [facility] ICU she had worsening hypoxia and was placed on NIV but failed. Was ultimately intubated. Noted to be hypotensive and started on levophed. Pt was transferred to [facility] for higher level of care. On arrival [...] Normal [] Scar/Lesion/Mass Inspection of teeth/lips/gums Dentition: [][place] Teeth []Dentures Lips/Gums: [x]Intact []Lesion Present Mucosa: [x]Dierks [x]Moist []Dry Neck: External Appearance Overall Appearance: [...] 0936 07/31/24 0605 PHART 7.370 7.399 7.335* AUZ0PHH 46.3* 44.6 47.9* PO2ART 114.1* 113.8* 143.8* DFU5WCG 26.2* 26.9* 25.0 V5OPTJZG Vent 30% Oxygen Nasal cannula Lactic Acid: [...] and Plan: Principal Problem: SDH (subdural hematoma) ([facility]) Active Problems: COPD (chronic obstructive pulmonary disease) ([facility]) Type 1 diabetes mellitus with kidney complication [...] PM EDT I have personally performed a gpcr-hc-zxzx diagnostic evaluation on this patient on date of service07/31/2024. History, labs, imaging studies, and electronic medical record have been reviewed by me. This note documented by the [x]house cleaner []TONJA reflects my history, exam, and medical [...] days Referring physician: Kena Heath DO Outpatient Blanking Press Operator: Christy Huerta Reason for Consult: Asked to [...] 4 - follows with Dr Christy Huerta ([place]). - On review of available labs, Cr has been 2.4-2.8, last (04/26) Cr 2.4 eGFR 20, 24 hr tpprjfr=6883 mg. - Home med includes losartan 25 [...] 7. Acute resp failure/COVID - intubated, per [facility] - remdesivir/steroids/meropenem 8. Altered MS, [...] 4 - follows with Dr Christy Huerta ([place]). On review of available labs, Cr has been 2.4-2.8, last (04/26) Cr 2.4 eGFR 20, 24 hr cxfmgdc=5001 mg. Home med includes losartan 25 mg [...] Urethral Catheter-Output (mL): 5 mL Urethral Catheter Ezazoyis-uhz-Hceghb (mL): 0 mL FIO2 needs: Patient Vitals [...] IRON, TIBC, FERRITIN No results found for: [id number], FOLATE Recent Labs 07/27/24 2114 07/28/24 0409 [...] studies and notes. Karyn Jones MD Pager [phone] [facility] [phone] D/w ICU * Torito Mahajan - 07/30/2024 10:36 AM EDT NEUROCRITICAL CARE PROGRESS NOTE Patient Name: Sandy Deng Patient : 1960 Acct: [id number] Date of Admission: 07/26/2024 Room/Bed: [facility]213/[facility] A PCP: Bird Lujan Interval Events: [...] in 0.9 % sodium chloride 250 mL (Eyl-Ijadtu-Lparr) (premix), 2-100 mcg/min, IntraVENous, Continuous, Simone Momin [...] 78 ALT 23 AST 44 BILITOT 0.5 @BRIEFLAB([facility]) ABGs:)No results for input(s): PH, PO2, PCO2, [...] original note were not included. PHYSICAL THERAPY [facility] Name/MRN: Sandy Deng ([id number]) Date: 07/30/2024 Screen Note. Pt remains intubated [...] O2 baseline), DM, CKD 4, HTN, CAD, [place] (PCI with stents in 2017). at bedside. Pt was admitted to [facility] due to confusion and hallucinations. Pt has had episodes of staring off into space per family. Was found to have a subdural hematoma. She reportedly had a fall 1 month ago from bed. states she hit her head on the nightstand. She is on Plavix and ASA for a stent placed 7 years ago. Pt tested positive for COVID on 07/24. Today at [facility] ICU she had worsening hypoxia and was placed on NIV but failed. Was ultimately intubated. Noted to be hypotensive and started on levophed. Pt was transferred to [facility] for higher level of care. On arrival [...] Normal [] Scar/Lesion/Mass Inspection of teeth/lips/gums Dentition: [][place] Teeth []Dentures Lips/Gums: [x]Intact []Lesion Present Mucosa: [x]Dierks [x]Moist []Dry Neck: External Appearance Overall Appearance: [...] 1408 07/30/24 0212 PHART 7.506* 7.439 7.370 ZFA8ZJS 34.5* 37.9 46.3* PO2ART 88.9 96.3 114.1* EXA2NTJ 26.7* 25.1* 26.2* O5BIYLOG 30% Oxygen 30% Oxygen Vent Lactic Acid: [...] AM EDT I have personally performed a atas-ar-njfi diagnostic evaluation on this patient on date of service07/30/2024. History, labs, imaging studies, and electronic medical record have been reviewed by me. This note documented by the [x]house cleaner []TONJA reflects my history, exam, and medical [...] Number Called: NA Name of Designated Family Budget Consultant: Jose Deng and pt's sister Relationship: spouse Family Budget Consultant Updated on the Following: Updated on the [...] days Referring physician: Kena Heath DO Outpatient Blanking Press Operator: Christy Huerta Reason for Consult: Asked to [...] (04/26) Cr 2.4 eGFR 20, 24 hr gchedyl=0771 mg. - Home med includes losartan 25 [...] 4 - follows with Dr Christy Huerta ([place]). On review of available labs, Cr has been 2.4-2.8, last (04/26) Cr 2.4 eGFR 20, 24 hr iikiiva=1238 mg. Home med includes losartan 25 mg [...] Urethral Catheter-Output (mL): 5 mL Urethral Catheter Useywmgm-lmm-Tiltct (mL): 0 mL FIO2 needs: Patient Vitals [...] IRON, TIBC, FERRITIN No results found for: [id number], FOLATE Recent Labs 07/27/24 0530 07/27/24 1427 [...] studies and notes. Karyn Jones MD Pager [phone] [facility] [phone] D/w ICU * Jamey Muro OT - 07/29/2024 11:27 AM EDT Images from the original note were not included. OCCUPATIONAL THERAPY [facility] Name/MRN: Sandy Deng ([id number]) Date: 07/29/2024 Pt remains on strict bed rest. Will continue to follow. Jamey Muro OT * Jennifer Saldaña - 07/29/2024 9:25 AM EDT Images from the original note were not included. PHYSICAL THERAPY [facility] Name/MRN: Sandy Deng ([id number]) Date: 07/29/2024 Hold Note. Pt remains intubated [...] O2 baseline), DM, CKD 4, HTN, CAD, [place] (PCI with stents in 2017). at bedside. Pt was admitted to [facility] due to confusion and hallucinations. Pt has had episodes of staring off into space per family. Was found to have a subdural hematoma. She reportedly had a fall 1 month ago from bed. states she hit her head on the nightstand. She is on Plavix and ASA for a stent placed 7 years ago. Pt tested positive for COVID on 07/24. Today at [facility] ICU she had worsening hypoxia and was placed on NIV but failed. Was ultimately intubated. Noted to be hypotensive and started on levophed. Pt was transferred to [facility] for higher level of care. On arrival [...] Normal [] Scar/Lesion/Mass Inspection of teeth/lips/gums Dentition: [][place] Teeth []Dentures Lips/Gums: [x]Intact []Lesion Present Mucosa: [x]Dierks [x]Moist []Dry Neck: External Appearance Overall Appearance: [...] 0409 07/29/24 0558 PHART 7.398 7.401 7.502* USI3AAA 41.9 38.6 32.6* PO2ART 100.1* 120.0* 110.0* CUF5QWL 25.3* 23.4 25.0 J6BLEYLU 30% Oxygen Vent Vent Lactic Acid: Recent [...] PM EDT I have personally performed a zepq-pl-spfu diagnostic evaluation on this patient on date of service07/29/2024. History, labs, imaging studies, and electronic medical record have been reviewed by me. This note documented by the [x]house cleaner []TONJA reflects my history, exam, and medical [...] so far today, excludingprocedures. * Cruzito Molina, RUCHING MACHINE OPERATOR - 07/29/2024 3:05 AM EDT 07/29/24 0258 [...] days Referring physician: Kena Heath DO Outpatient Blanking Press Operator: Christy Huerta Reason for Consult: Asked to [...] 4 - follows with Dr Christy Huerta ([place]). - On review of available labs, Cr has been 2.4-2.8, last (04/26) Cr 2.4 eGFR 20, 24 hr tptrinj=8366 mg. - Home med includes losartan 25 [...] by,Ino Conte MD, for SDH (subdural hematoma) ([facility]) [S06.5XAA]. Mrs. Deng is a 63 year [...] 4 - follows with Dr Christy Huerta ([place]). On review of available labs, Cr has been 2.4-2.8, last (04/26) Cr 2.4 eGFR 20, 24 hr mhvlzjz=4391 mg. Home med includes losartan 25 mg [...] Urethral Catheter-Output (mL): 5 mL Urethral Catheter Sklucnjl-rbh-Qarjfl (mL): 0 mL FIO2 needs: Patient Vitals [...] IRON, TIBC, FERRITIN No results found for: VSSKVLFZ62, FOLATE Recent Labs 07/26/24184907/27/24 0530 07/27/24 1427 [...] studies and notes. Karyn Jones MD Pager [phone] [facility] [phone] * Torito Mahajan - 07/28/2024 10:43 AM EDT NEUROCRITICAL CARE PROGRESS NOTE Patient Name: Sandy Deng Patient : 1960 Acct: [id number] Date of Admission: 07/26/2024 Room/Bed: T2-213/T2-213 A [...] in 0.9 % sodium chloride 250 mL (Ocv-Avronv-Ogcep) (premix), 2-100 mcg/min, IntraVENous, Continuous, Simone Momin [...] 416 ms QTC Interval 456 ms P [place] 0 degrees QRS [place] 14 degrees T Wave [place] [address] Interval 0 ms Basic metabolic panel Collection [...] 66 ALT 19 AST 28 BILITOT 0.3 @BRIEFLAB([facility]) ABGs:)No results for input(s): PH, PO2, PCO2, [...] cEEG Read pending Assessment and Plan: Sandy eDng is a 63 yo F with a [...] participate in their own care). * Joycelyn Diane DO - 07/28/2024 6:22 AM EDT ICU Progress Note Name: Sandy Deng : 1960(63 y.o.) Date: 07/28/24 Team: MICU Attending: Dr. Luttman Subjective: Hospital Summary: 63 year old female with a PMHx of COPD (3L O2 baseline), DM, CKD 4, HTN, CAD, [place] (PCI with stents in 2017). at bedside. Pt was admitted to [facility] due to confusion and hallucinations. Pt has had episodes of staring off into space per family. Was found to have a subdural hematoma. She reportedly had a fall 1 month ago from bed. states she hit her head on the nightstand. She is on Plavix and ASA for a stent placed 7 years ago. Pt tested positive for COVID on 07/24. Today at [facility] ICU she had worsening hypoxia and was placed on NIV but failed. Was ultimately intubated. Noted to be hypotensive and started on levophed. Pt was transferred to [facility] for higher level of care. On arrival [...] Normal [] Scar/Lesion/Mass Inspection of teeth/lips/gums Dentition: [][place] Teeth []Dentures Lips/Gums: [x]Intact []Lesion Present Mucosa: [x]Dierks [x]Moist []Dry Neck: External Appearance Overall Appearance: [...] 07/27/24 16207/28/24 0409 PHART 7.286* 7.398 7.401 GJA7WPU 52.3* 41.9 38.6 PO2ART 115.1* 100.1* 120.0* SDD8EYL 24.4 25.3* 23.4 G8VYPSTT 30% Oxygen 30% Oxygen Vent Lactic Acid: [...] PM EDT I have personally performed a ufrj-gc-lkdb diagnostic evaluation on this patient on date of service07/28/2024. History, labs, imaging studies, and electronic medical record have been reviewed by me. This note documented by the [x]house cleaner []TONJA reflects my history, exam, and medical [...] Torres RCP - 07/28/2024 4:53 AM EDT [facility] Respiratory Care Department Progress Note Spontaneous Awakening [...] 1622 07/28/24 0409 PHART 7.286* 7.398 7.401 PKV9EUL 52.3* 41.9 38.6 PO2ART 115.1* 100.1* 120.0* YXD4SKW 24.4 25.3* 23.4 C0WQPFCG 30% Oxygen 30% Oxygen Vent Does this [...] 12- 24 hours post-extubation. [place] Sahni MA [facility]-PIE BAKER * Delmar Ling OT - 07/27/2024 8:22 AM EDT Images from the original note were not included. OCCUPATIONAL THERAPY [facility] Name/MRN: Sandy Deng ([id number]) Date: 07/27/2024 Intubated, sedated, on bed rest. Will follow. Delmar Ling OT * Jennifer Saldaña - 07/27/2024 7:30 AM EDT Images from the original note were not included. PHYSICAL THERAPY [facility] Name/MRN: Sandy Deng ([id number]) Date: 07/27/2024 Screen Note. Pt remains intubated and sedated, and on strict bed rest orders. Will continue to follow and re-attempt as able. Jennifer Saldaña SPT * Dariel Santizo MD - 07/27/2024 7:08 AM EDT ICU Progress Note Name: Sandy Deng : 1960(63 y.o.) Date: 07/27/24 Team: MICU Attending: Kumar Subjective: Hospital Summary: Sandy Deng is a 63 year old female with a PMHx of COPD (3L O2 baseline), DM, CKD 4, HTN, CAD (PCI with stents in 2017). at bedside. Pt was admitted to [facility] due toconfusion and hallucinations. Pt has had episodes of staring off into space per family. Was found to have a subdural hematoma. She reportedly had a fall 1 month ago from bed. states she hit her head on the nightstand. She is on Plavix and ASA for a stent placed 7 years ago. Pt tested positive for COVID on 07/24. Today at [facility] ICU she had worsening hypoxia and was placed on NIV but failed. Was ultimately intubated. Noted to be hypotensive and started on levophed. Pt was transferred to [facility] for higher level of care. On arrival [...] I/O: 07/26 07 - 07/27 659 In: 1731 [I.V.:3661] Out: 345 [Urine:84] Ventilator: Resp Rate (Set): [...] Normal [] Scar/Lesion/Mass Inspection of teeth/lips/gums Dentition: [][place] Teeth []Dentures Lips/Gums: [x]Intact []Lesion Present Mucosa: [x]Dierks [x]Moist []Dry Neck: External Appearance Overall Appearance: [...] Recent Labs 07/26/24223107/27/24 0652 PHART 7.166* 7.214* KHX9GNX 30.4* 53.5* PO2ART 95.4 108.9* IRZ9IBH 10.7* 21.1 Y9LUPYIQ Vent Vent Lactic Acid: Recent Labs 07/26/24 [...] PM EDT I have personally performed a oefq-em-ltsp diagnostic evaluation on this patient on date of service07/27/2024. History, labs, imaging studies, and electronic medical record have been reviewed by me. This note documented by the [x]house cleaner []TONJA reflects my history, exam, and medical [...] CKD, on ASA/Plavix who initially presented to [facility] on 07/23 with acute respiratory distress [...] vs. epidural hematoma. For this reason, [facility] wa consulted for further neurologic management and [...] PLAN: 63 y.o. female s/p presented to [facility] ED with confusion since the prior night [...] SDH -patient admitted yesterday after transfer from [facility] with hypoxic respiratory failure, known COPD hx, [...] minutes (including chart/data review/analysis, care coordination, and ikfc-yk-dnsj encounter), and was spent discussing/counseling the patient/family [...] appropriate exam and evaluation Michael Holbrook MD, [facility] Trauma, Surgical Critical Care, & Acute Care Surgery Department of Surgery [facility] Pager: [phone] ~~~~~~~~~~~~~~~~~~~~~~~~~~~~~~~~~~~~~~~~~~~~~~~~~~~~~~~~~~~~~ This note may have been dictated using [employer] Medical Practice Edition 2.6 and/or [employer] Voice Recognition Feature. The document was proofread; however, unrecognized voice recognition diver's tender errors may be present. * Joni Monson [...] epidural hematoma and patient was transferred to [facility]. She was placed on levophed. She is [...] call with any questions. Joni Monson MD [facility] ([facility]) Office phone: [phone] Office fax: [phone] 07/27/2024 documented in this [facility] [facility] Miscellaneous Notes* Care Coordination - Otilia Arellano RN - 08/10/2024 11:38 AM EDT Active with green material value added assessor brenna ext [phone] per , tcc called left VM regarding discharge plan. At today , [facility] , at bedside aware and agree to plan .. * Care Coordination - Unknown Case Management - 08/10/2024 10:00 AM EDT Patient Choice Patient Name: SANDY DENG Date of : 1960 All Providers Sent Referral Name: [facility] Address: [address] [place] [address] Name: [facility] Phone: [phone] Address: [address] [place] [address] Name: [facility] Phone: [phone] Address: [address] [place] [address] Name: [facility] Address: [address] [place] [address] Name: [facility] Address: [address] [place] [address] Name: [facility] Phone: [phone] Address: [address] [id number] * Care Coordination - SAPNA Richards - 08/10/2024 9:59 AM EDT Transportation set via cot through [employer] for today 08-10-24 @2pm to [facility]. ROSALINE, RN, Car Racer, facility, Pt, and Pt's Jose notified. * Care Coordination - Kimberlee Valdovinos - 08/10/2024 8:14 AM EDT Discharge med list transmitted to REHAB- [facility] via Careport per TCC request. * Care Coordination - Otilia Arellano RN - 08/10/2024 6:15 AM EDT She is approved 08/09-08/16 to [facility] . Med [...] she has been to HD class at [facility] . And that is the out pt [...] Need accepting rehab center- tcc messaged to [place] and [facility] and [place] to see who can accept . PT/OT [...] 8:29 AM EDT Referral placed to REHAB [facility] via Careport per TCC request. Referral placed to [facility] via Careport per TCC request. Await review and response regarding ability to accept. TCC notified. * Care Coordination - Otilia Arellano RN - 08/06/2024 6:50 AM EDT Transfer from T2, complex discharge, need HD, recent covid, per PT/OT need rehab, live in [place], ready for discharge soon, not today , getting transfused, new HD, MMO list and new referrals sent toSNF with IN HOUSE HD and IPR within 50 miles not many options due to the constraints of needs and in surance, will need acceptance, auth and HD auth . At this time foc was [facility] NOT an option as NO HD beds available and not set up incommunity to transport to and too far as she lives in [place], will get lists to bedside and TCC did sent mass referral - weekend tcc to follow or therapy and acceptance options . Cont to follow , tcc will update the family as able . * Care Coordination - Shaniqua Parker RN - 08/06/2024 5:54 AM EDT Care Management Progress Note Chart reviewed. Patient admitted to [facility] ICU for SDH 07/26/2024. Consults to IP CONSULT TO NEUROSURGERY IP CONSULT TO NEUROLOGY IP CONSULT TO NEPHROLOGY IP CONSULT TO DIETITIAN IP WOUND CARE NURSE CONSULT TO EVAL Discharge Planning/Barriers: HDC - tunneled. iHD - T, TH, S. PT/OT recs noted. Late entry note from 08/05/24 - CM requested to start facility auth if able 08/05. [facility] per secure chat we are back to not having a dialysis bed available. you should likely make other plans for her. CM explained by [facility] liaison, not willing to start auth until HD bed available. CM notes that [facility] IPR nor [facility] IPR have in house HD. Patient was hoping to have IPRwith in house HD. CM will discuss with patient, as able, for other options than IPR at [facility]. [place] and [facility] are locations not yet offered/confirmed if they have HD beds available. Discharge Plan: IPR vs SNF. Awaiting additional facility choices/discussion, clinical stability and medical clearance. Will continue to follow with [facility]. Length of Stay (Days): 11 GMLOS: 5.1 [...] Re-introduced myself and role. Discussed discharge planning. [facility] does not have inpatient diaylsis. Patient would prefer to participate in IPR at [facility] where IPHD is available. CM updated facilities. Discharge Plan: [facility]. Awaiting OT eval, facility precert, clinical stability and medical clearance. Will continue to follow with [facility]. Length of Stay (Days): 9 GMLOS: 5.1 * Care Coordination - Shilo Bose - 08/03/2024 2:05 PM EDT Referral placed to Rehab - [facility] via Careport per TCC request. Await review and response regarding ability to accept. TCC notified. * Care Coordination - Shaniqua Parker RN - 08/03/2024 1:53 PM EDT Care Management Progress Note Chart reviewed. Patient admitted to [facility] ICU for SDH 07/26/2024. Consults to IP [...] agreeable to rehab at discharge. CM tasked [facility] to send referrals to [facility] and [facility] for IPR and iHD. Discharge Plan: [facility] and [facility]. Awaiting facility acceptance, facility precert, clinical stability and medical clearance. Will continue to follow with [facility]. Length of Stay (Days): 8 GMLOS: 5.1 [...] Yes, addressed in today's progress note Anticipated [place] Medications (ICU initiated) or Dose Changes and [...] 24 hours of ICU transfer, page ICU [facility] for clarifications. * Care Coordination - [...] No GMLOS Documented * Care Plan - Trmuan Quezada RN - 08/01/2024 6:33 PM EDT [...] Progress Note Chart reviewed. Patient admitted to [facility] ICU for SDH 07/26/2024. Consults to IP [...] Assess Permission given to speak with patient customer success representative/caregiver as indicated: Confirmation of Payer with patient/family: Payer Name: Medical [place] : Confirmation of Primary Care Physician: PCP [...] Information: Chart reviewed. Patient direct admit from [facility] to [facility] ICU for SDH 07/26/2024. Consults to IP CONSULT TO NEUROSURGERY IP CONSULT TO NEUROLOGY IP CONSULT TO NEPHROLOGY Initial Assessment: IA completed with chart review. Patient transferred from [facility]. NOK listed. Patient has insurance, prescription coverage and active with PCP. CM called PCP office spoke with MOODY Walker to confirm patient active. Discharge Planning/Barrier: Intubated/sedated. Art line. TLC CVC. HDC. CRRT. N/OGT. NPO. Johnson. IV qtt - levophed, vasopressin PT/OT/PIE BAKER pending. CM requests [facility] to follow peripherally. Discharge Plan: TBD. Awaiting clinical stability and medical clearance. Will continue to follow with [facility]. Shaniqua Parker RN documented in this [facility]10-08-2024 [facility] 08-09-2024 Hospital Discharge instructions* Discharge Instr - [...] Unit/Room#: W3-339/W3-339 B Discharging Unit Phone Number: [phone] Emergency Contact: Extended Emergency Contact Information Primary Emergency Contact: Bobbi Steward Mobile Relation: Daughter Preferred language: Bahamian Crab Steamer needed? No Secondary Emergency Contact: Jose Deng Mobile Relation: Spouse Preferred language: Bahamian Crab Steamer needed? No Past Surgical History: Past Surgical [...] assistance Toileting Minimal assistance Feeding Minimal assistance Mercury Recoverer Total assistance Med Delivery yes Wound Care [...] Date: 07/26/24 Discharging to Facility/ Agency Name: [facility] Address: [address] [place] [address] Fax: Dialysis Facility (if applicable) Name: [facility] is preference at out pt if needed Address: Dialysis Schedule: Phone: Fax: Nutrient Management Specialist/[employer] signature: at1:31 PM PHYSICIAN SECTION Name: Sandy [...] to a nursing facility directly from an [facility] or a unit of a [facility] that is not operated by or licensed [...] in H&P PHYSICIAN SIGNATURE: documented in this [facility]10-01-2024 NoteReferral placed to Rehab - [facility] via Careport per [facility] request. Await review and response regarding ability to accept. TCC notified. Electronically signed by [facility]09-26-2024 [facility]09-26-2024 Procedure note* Armen Diaz MD PhD - 07/29/2024 12:43 PM EDTAssociated Order(s): EEG CONTINUOUS MONITORING Images from the original note were not included. [facility] [address] [place] [id number] CONTINUOUS LONG-TERM VIDEO EEG MONITORING REPORT Patient Name: Sandy Deng : 1960 Date of Study: 07/29/2024 Duration Recorded: 14:59:56 EEG#: [id number] CLIN APPLICATION SPECIALIST: LIBRA Peters CLTM PROVIDER REQUESTING STUDY: Dr. Mahajan REASON FOR EXAM: Evaluate for epileptiform activity DIAGNOSIS TAG: Subdural Hemorrhage (SDH) HISTORY: Sandy Deng is a 63 y.o. female with history of COPD (3L O2 baseline), DM, CKD 4, HTN, CAD (PCI with stents in 2017). at bedside. Pt was admitted to [facility] due to confusion and hallucinations. Pt has had episodes of staring off into space per family. Was found to have a subdural hematoma. She reportedly had a fall 1 month ago from bed. states she hit her head on the nightstand. She is on Plavix and ASA for a stent placed 7 years ago. Pt tested positive for COVIDon 07/24. Today at [facility] ICU she had worsening hypoxia and was placed on NIV but failed. Was ultimately intubated. Noted to be hypotensive and started on levophed. Pt was transferred to [facility] for higher level of care. On arrival [...] in 0.9 % sodium chloride 250 mL (Rca-Ojwlbt-Totip) (premix) 2-100 mcg/min IntraVENous Continuous Saif-Mario Alberto [...] study with video was carried out at [facility]. Scalp electrodeswere positioned in person by an applied technologist, following patient education, according to the 10-20 International system of electrode placement and maintained for integrity and quality of the recording. EEG data with video was recorded continuously and digitally stored. The applied technologist reviewed all automated detections and manual [...] delta-theta range (0.5- 6.5 Hz, 20-55 uV) pvaqdhigt-ct-fybyoqijqivcxy slowing was seen unresponsive to stimulation. At times, intermixed generalized periodic discharges with triphasic morphology and vnxehmtl-fg-qsmvcuxix phase delay are observed(0.5-1.5 Hz, 70-120 uV). 12:25:37 -Continuous slowing, generalized + triphasic waves (Referential to average, LFF=1Hz, HFF=30Hz, Sens=5 uV/mm) INTERICTAL EPILEPTIFORM ACTIVITY: No epileptiform activity was seen. ICTAL ACTIVITY: No ictal activity was seen. NON-EPILEPTIC EVENTS: None ACTIVATION PROCEDURES: Photic stimulation was not performed. Hyperventilation was not performed. IMPRESSION AND ACTIONS TAKEN: This continuous EEG with video is abnormal. Continuous diffuse paiqtzfb-lw-evzovs slowing is seen with intermixed triphasic waves. [...] from the original note were not included. [facility] [address] [place] [address] CONTINUOUS LONG-TERM VIDEO EEG MONITORING REPORT Patient Name: Sandy Deng : 1960 Date of Study: 07/28/2024 Duration Recorded: 23:48:31 EEG#: [id number] CLIN APPLICATION SPECIALIST: LIBRA Peters CLTM PROVIDER REQUESTING STUDY: Dr. Mahajna REASON FOR EXAM: Evaluate for epileptiform activity DIAGNOSIS TAG: Subdural Hemorrhage (SDH) HISTORY: Sandy Deng is a 63 y.o. female with history of COPD (3L O2 baseline), DM, CKD 4, HTN, CAD (PCI with stents in 2017). at bedside. Pt was admitted to [facility] due to confusion and hallucinations. Pt has had episodes of staring off into space per family. Was found to have a subdural hematoma. She reportedly had a fall 1 month ago from bed. states she hit her head on the nightstand. She is on Plavix and ASA for a stent placed 7 years ago. Pt tested positive for COVIDon 9/21. Today at [facility] ICU she had worsening hypoxia and was placed on NIV but failed. Was ultimately intubated. Noted to be hypotensive and started on levophed. Pt was transferred to [facility] for higher level of care. On arrival [...] in 0.9 % sodium chloride 250 mL (Lum-Xbhngn-Kpizw) (premix) 2-100 mcg/min IntraVENous Continuous Simone Momin, [...] bolus 30 mL 30 mL IntraVENous PRN eKna Heath DO sodium chloride 0.9 % infusion 75 mL/hr IntraVENous PRN Clara Mayes DO TECHNICAL ASPECTS: This continuous scalp EEG study with video was carried out at [facility]. Scalp electrodeswere positioned in person by an applied technologist, following patient education, according to the 10-20 International system of electrode placement and maintained for integrity and quality of the recording. EEG data with video was recorded continuously and digitally stored. The applied technologist reviewed all automated detections and manual [...] delta-theta range (0.5- 6.5 Hz, 20-55 uV) gutihambm-jp-vpsyqzkmtdawni slowing was seen unresponsive to stimulation. 12:04:28 -Continuous slowing, generalized (Referential to average, LFF=1Hz, HFF=30Hz, Sens=5 uV/mm) INTERICTAL EPILEPTIFORM ACTIVITY: No epileptiform activity was seen. ICTAL ACTIVITY: No ictal activity was seen. NON-EPILEPTIC EVENTS: None ACTIVATION PROCEDURES: Photic stimulation was not performed. Hyperventilation was not performed. IMPRESSION AND ACTIONS TAKEN: This continuous EEG with video is abnormal. Continuous diffuse gfmmvjtn-if-zvxdqv slowing is seen unresponsive to stimulation. No interictal epileptiform activity nor seizures are observed. Compared with the previous day of recording, a cyclic alternating pattern of encephalopathy (CAPE) is no longer observed. These findings remain indicative of a potentially worsening nwtqqnpc-py-llndnd global encephalopathy nonspecific as to etiology. Jasmeet Arevalo, PhD Clinical Neurophysiologist Armen Diaz MD PhD Epilepsy Attending * Armen Diaz MD PhD - 07/27/2024 1:43 PM EDTAssociated Order(s): EEG CONTINUOUS MONITORING Images from the original note were not included. [facility] [address] [place] [phone] CONTINUOUS LONG-TERM VIDEO EEG MONITORING REPORT Patient Name: Sandy Deng : 1960 Date of Study: 07/27/2024 Duration Recorded: 10:39:13 EEG#: [id number] CLIN APPLICATION SPECIALIST: LIBRA Peters CLTM PROVIDER REQUESTING STUDY: Dr. Mahajan REASON FOR EXAM: Evaluate for epileptiform activity DIAGNOSIS TAG: Subdural Hemorrhage (SDH) HISTORY: Sandy Deng is a 63 y.o. female with history of COPD (3L O2 baseline), DM, CKD 4, HTN, CAD (PCI with stents in 2017). at bedside. Pt was admitted to [facility] due to confusion and hallucinations. Pt has had episodes of staring off into space per family. Was found to have a subdural hematoma. She reportedly had a fall 1 month ago from bed. states she hit her head on the nightstand. She is on Plavix and ASA for a stent placed 7 years ago. Pt tested positive for COVIDon 07/24. Today at [facility] ICU she had worsening hypoxia and was placed on NIV but failed. Was ultimately intubated. Noted to be hypotensive and started on levophed. Pt was transferred to [facility] for higher level of care. On arrival [...] in 0.9 % sodium chloride 250 mL (Tai-Qdyecb-Kzjoq) (premix) 2-100 mcg/min IntraVENous Continuous Saif-Mario Alberto [...] study with video was carried out at [facility]. Scalp electrodeswere positioned in person by an applied technologist, following patient education, according to the 10-20 International system of electrode placement and maintained for integrity and quality of the recording. EEG data with video was recorded continuously and digitally stored. The applied technologist reviewed all automated detections and manual [...] upper axial body and head, with subtle okvr-wxs-gaoan head movements at a frequency of 4 [...] abnormal states. State 1is characterized by continuous evyvyffi-ip-bxuqwx diffuse slowing. State 2 features lower amplitudeand [...] upper axial body and head, with subtle ppcj-kyq-grojr head movements. This activity ended with a transition to CAPE State 2. The findings are supportive of a nrjmvdnj-ui-uuzblr global encephalopahy non- specific as to etiology. The observed SIRPID pattern is of non-specific clinical significance, but is evidence of reactivity. Jasmeet Arevalo, PhD Clinical Neurophysiologist Armen Diaz MD PhD Epilepsy Attending * Calixto Trevino MD - 07/27/2024 1:50 AM EDTAssociated [...] documented as signed by this procedure note Coal Grader: Dr. Knox The attending physician was physically present while the proceduralist performed cantrell/critical components of the procedure. Attending: Dr. Knox [...] documented as signed by this procedure note Coal Grader: Dr. Concepcion The attending physician was physically present while the proceduralist performed cantrell/critical components of the procedure. Attending: Dr. Concepcion Associated attestation - Mynor Concepcion DO - 07/27/2024 12:52 AM EDT I have reviewed and agree with the resident/fellow/TONJA note I was physically present for cantrell elements of the procedure Complications during procedure: None documented in this [facility]09-25-2024 [facility] 07-28-2024 Consult note* Shanti García, RICKY - [...] loss Fluid Accumulation: No significant fluid accumulation Preparer Samples And Repairs Strength: Not Performed Nutrition Assessment: Pt is a 63-year-old female with multiple medical co-morbidities including Type I DM (on insulin pump), COPD on 4L home O2, CKD4, on ASA/Plavix who initially presented to [facility] on 07/23 withacute respiratory distress and acute delirium. 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 She was found to be hypoxic and hypercarbic, and COVID positive. She continued to be delirious and did not tolerate NIV, and required intubation 07/27/24. A CT head was done to evaluate her altered mental status, and she was found to have a small acute right sided SDH vs. epidural hematoma. For this reason, [facility] consulted for further neurologic management and she [...] On: Kcal/kg Weight Used for Energy Requirements: [place] Weight for Energy Calculation (kg): 59 kg Total Energy Requirements (kcals/day): 25-30 kcals/kg = 4060-2229 kcals/day Weight Used for Protein Requirements: [place] Weight in Kg Used for Protein Requirements: [...] lb 13.1 oz) Weight Source: Not Specified [place] Body Weight (lbs) (Calculated): 130 lbs [place] Body Weight (Kg) (Calculated): 59 kg % [place] Body Weight (Calculated): 81.4 % BMI (kg/m2) [...] soon to determine Shanti García RD,LD,CNSC Contact: *[phone] or [employer] Chat * Torito Mahajan - 07/27/2024 2:11 PM EDTAssociated Order(s): IP CONSULT TO NEUROLOGY NEUROCRITICAL CARE CONSULT NOTE Patient Name: Sandy Deng Patient : 1960 Acct: [id number] Date of Admission: 07/26/2024 Room/Bed: T2213/[facility]213 A PCP: Bird Lujan Chief Complaint: encephalopathy [...] in 0.9 % sodium chloride 250 mL (Qaw-Uxqhzy-Iualj) (premix), 2-100 mcg/min, IntraVENous, Continuous, Simone Momin [...] mcg/kg/min, IntraVENous, Continuous, Clara Mayes DO, LastRate: 4.32 mL/hr at 07/27/24 1109, [...] 448 ms QTC Interval 459 ms P [place] 82 degrees QRS [place] -71 degrees T Wave [place] [address] Interval 98 ms Procalcitonin Test Collection Time: [...] 66 ALT 19 AST 28 BILITOT 0.3 @BRIEFLAB([facility]) ABGs:)No results for input(s): PH, PO2, PCO2, [...] consulted. Per report, patient initially presented to [facility] with respiratory distress and delirium.She was ultimately found to have COVID infection. CT brain obtained due to confusion and AMS was notable for an acute right temporal SDH. No known trauma. No reported falls. Past Medical History: Past Medical History: Diagnosis Date COPD (chronic obstructive pulmonary disease) ([facility]) Diabetic neuropathy (HCC) Hyperlipidemia Myocardial infarct (HCC) [...] 448 ms QTC Interval 459 ms P [place] 82 degrees QRS [place] -71 degrees T Wave [place] [address] Interval 98 ms Procalcitonin Test Collection Time: [...] sign-off at this time Romero Wright MD [facility] Neurosurgery I spent 60 minutes of my [...] days Referring physician: Kena Heath DO Outpatient Blanking Press Operator: Christy Huerta Reason for Consult: Asked to [...] 4 - follows with Dr Christy Huerta ([facility]). - On review of available labs, Cr has been 2.4-2.8, last (04/26) Cr 2.4 eGFR 20, 24 hr riiltvj=9757 mg. - Home med includes losartan 25 [...] by,Ino Conte MD, for SDH (subdural hematoma) ([facility]) [S06.5XAA]. Mrs. Deng is a 63 year old female with PMH of COPD (3L O2 baseline), DM type 1, CKD 4, HTN, CAD (PCI with stents in 2017). initially presentingwith resp distress and delirium, found to be hypoxic and hypercarbic, Covid positive. She was eventually intubated. CT head showed a small right sided SDHvs epidural hematoma and patient was transferred to [facility]. She was placed on levophed. Initial labs [...] 4 - follows with Dr Christy Huerta ([facility]). On review of available labs, Cr has been 2.4-2.8, last (04/26) Cr 2.4 eGFR 20, 24 hr fwgezdf=8643 mg. Home med includes losartan 25 mg [...] IRON, TIBC, FERRITIN No results found for: [id number], FOLATE Recent Labs 07/26/24 1850 07/27/24 0530 [...] studies and notes. Karyn Jones MD Pager [phone] [facility] [phone] Greater than 65 min of time spent on prepping chart, reviewing outpt pcp/entry level sales consultant notes/cumulative labs, imaging, FTF time, interpretation of [...] 2017). at bedside. Pt was admitted to [facility] due to confusion and hallucinations. Pt has had episodes of staring off into space per family. Was found to have a subdural hematoma. She reportedly had a fall 1 month ago from bed. states she hit her head on the nightstand. She is on Plavix and ASA for a stent placed 7 years ago. Pt tested positive for COVID on 07/24. Today at [facility] ICU she had worsening hypoxia and was placed on NIV but failed. Was ultimately intubated. Noted to be hypotensive and started on levophed. Pt was transferred to [facility] for higher level of care. On arrival [...] Normal [] Scar/Lesion/Mass Inspection of teeth/lips/gums Dentition: [x][place] Teeth []Dentures Lips/Gums: [x]Intact []Lesion Present Mucosa: [x][place]ier[place] [x]Moist []Dry Neck: External Appearance Overall Appearance: [...] AM EDT I have personally performed a wdzz-lr-wpjx diagnostic evaluation on this patient on date of mevqnjg19/23/24. History, labs, imaging studies, and electronic medical record have been reviewed by me. This note documented by the [x]house cleaner []TONJA reflects my history, exam, and medical [...] incl decadron, remdes -->confirm COVID19 result from [facility] Follow-up micro studies and adjust abx Concern [...] failure is 35 minutes. documented in this encounterSOhio State Health [id number] [facility] 07-27-2024 NoteAcceptable Specimen? Acceptable Specimen(Evaluation not needed) Gram Stain 3+ White Blood Cells No Epithelial cells 3+ Gram positive cocci 1+ Gram negative rodsWUniversity Hospitals St. John Medical CenterComment on above:Performed By: #### M100.2400, M100.2000 ####[facility] [id number] [place], [phone] [facility] 07-26-2024 [facility]09-[facility]-2024 [facility] 07-26-2024 History and physical note* Deacon Mazariegos MD - 07/26/2024 4:37 PM EDT Images from the original note were not included. [facility] SICU H&P 07/26/2024 6:01 PM Attending: Dr. [place] Chief Complaint: Brain Bleed History of Present Illness: 63 y.o. female presented to [place] ED with confusion since the prior night [...] -Hold asa and plavix #CKD Stage 4 #UAM -Baseline Cr 2.4-2.8 -Cr 3.6 on presentation [...] ADDENDUM I personally supervised the resident or WINDOWS APPLICATION ADMINISTRATOR/PAEliaC in the evaluation and development of a [...] CKD, on ASA/Plavix who initially presented to [facility] on 07/23 (3 days ago) with [...] that leading up to her visit to [place] ED she was acting delirious and frequently getting outof bed in the middle of night. She may have hit her head during one of these episodes, however she did not have a fall or witnessed head trauma during her brief hospitalization at [place]. I reviewed her CT head from [facility] at 0100 this AM (07/26), with a [...] Trauma Department of Surgery [facility] documented in this [facility]09-23-[address]24 [facility]07-18-2023 [facility] - [facility]* ChiefComplaintFreeTextNoteForm_: * Kidney transplant surgical evaluation for potential active candidacy on kidney transplant list [id number] [address] Work Phone: Evaluation note* Diagnosis Onset Date Resolution Status CKD (chronic kidney disease) stage 4, GFR 15-29 ml/min chronic Diabetes chronic Essential (primary) hypertension chronic Tobacco abuse [facility] Work Phone: Evaluation note* Diagnosis Onset Date Resolution Status CKD (chronic kidney disease) stage 4, GFR 15-29 ml/min chronic Diabetes chronic Essential (primary) hypertension chronic Tobacco abuse chronic Chronic obstructive pulmonary disease chronic Smoking greater than 30 pack years [facility] Work Phone: Evaluation note* Diagnosis Onset Date Resolution Status Chronic obstructive pulmonary disease chronic Respiratory failure with hypoxia chronic Smoking greater than 30 pack years chronic Fissure in skin of foot acut e CKD (chronic kidney disease) stage 4, GFR 15-29 ml/min chronic DM type 1 (diabetes mellitus, type 1) chronic Tobacco abuse [facility] Work Phone: Evaluation note* Diagnosis Onset Date Resolution Status Fissure in skin of foot acut e CKD (chronic kidney disease) stage 4, GFR 15-29 ml/min chronic DM type 1 (diabetes mellitus, type 1) chronic Tobacco abuse chronic Chronic obstructive pulmonary disease chronic Smoking greater than 30 pack years [facility] Work Phone: evaluation note* Diagnosis Onset Date Resolution Status CKD (chronic kidney disease) stage 4, GFR 15-29 ml/min chronic DM type 1 (diabetes mellitus, type 1) chronic Hyperlipidemia chronic 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 Atherosclerosis of coronary artery of holy cross heart without angina pectoris chronic Chronic obstructive pulmonary disease chronic Cigarette nicotine dependence [facility] Work Phone: evaluation note* Diagnosis Onset Date Resolution Status Atherosclerosis of coronary artery of [place] cross heart without angina pectoris chronic Chronic obstructive pulmonary disease chronic Cigarette nicotine dependence chronic Atherosclerosis of coronary artery of [place] heart without angina pectoris chronic Essential (primary) hypertension chronic Hyperlipidemia [facility] Work Phone: evaluation note* Diagnosis Onset Date Resolution Status Atherosclerosis of coronary artery of holy cross heart without angina pectoris chronic Essential (primary) hypertension chronic Hyperlipidemia [facility] Work Phone: evaluation note* Diagnosis Onset Date Resolution Status Lung nodule, solitary acute Chronic obstructive pulmonary disease chronic Smoking greater than 30 pack years chronic CKD (chronic kidney disease) stage 4, GFR 15-29 ml/min chronic DM type 1 (diabetes mellitus, type 1) [facility] Work Phone: evaluation note* Diagnosis Onset Date Resolution Status CKD (chronic kidney disease) stage 4, GFR 15-29 ml/min chronic DM type 1 (diabetes mellitus, type 1) [facility] Work Phone: evaluation note* Diagnosis Onset Date Resolution Status CKD (chronic kidney disease) stage 4, GFR 15-29 ml/min chronic DM type 1 (diabetes mellitus, type 1) chronic Lung nodule, solitary acute Chronic obstructive pulmonary disease chronic Respiratory failure with hypoxia [facility] Work Phone: Evaluation note* Diagnosis Onset Date Resolution Status Lung nodule, solitary acute Chronic obstructive pulmonary disease chronic Respiratory failure with hypoxia chronic Atherosclerosis of coronary artery of holy cross heart without angina pectoris chronic Essential (primary) hypertension chronic Hyperlipidemia [facility] Work Phone: evaluation note* Diagnosis Onset Date Resolution Status Lung nodule, solitary acute Chronic obstructive pulmonary disease chronic Respiratory failure with hypoxia chronic Atherosclerosis of coronary artery of holy cross heart without angina pectoris chronic Essential (primary) hypertension chronic Hyperlipidemia chronic Body mass index (BMI) less than 16.5 chronic CKD (chronic kidney disease) stage 4, GFR 15-29 ml/min chronic DM type 1 (diabetes mellitus, type 1) chronic Nicotine abuse chronic Polyneuropathy due to type 1 diabetes mellitus [facility] Work Phone: Evaluation note* Diagnosis Onset Date Resolution Status Lung nodule, solitary acute Chronic obstructive pulmonary disease chronic Respiratory failure with hypoxia chronic Atherosclerosis of coronary artery of holy cross heart without angina pectoris chronic Essential (primary) [...] chronic Respiratory failure with hypoxia [facility] Work Phone: Evaluation note* Diagnosis Onset Date Resolution Status Atherosclerosis of coronary artery of holy cross heart without angina pectoris chronic Essential (primary) [...] chronic Respiratory failure with hypoxia [facility] Work Phone: Evaluation note* Diagnosis SDH (subdural hematoma) (HCC)- Primary Subdural hemorrhage SDH (subdural hematoma) (HCC) Subdural hemorrhage Stage 4 chronic kidney disease (HCC) COPD (chronic obstructive pulmonary disease) (HCC) Chronic airway obstruction, not elsewhere classified Type 1 diabetes mellitus with kidney complication (HCC) Hyperlipidemia Other and unspecified hyperlipidemia Diabetic neuropathy associated with type 1 diabetes mellitus (HCC) [facility]H (subdural hematoma) (HCC) Subdural hemorrhage [facility] Diagnosis Hypercapnic respiratory failure (HCC)- [...] Lujan. * Referral: Dr. Christy Huerta (tel: [phone] fax: [phone]). * I am seeing SANDY DENG at the referring provider's request for surgical suitability for renaltransplant candidate listing at [facility] [place]. * History of Present Illness Comments: Ms. [...] Information: * Dr. Viraj No is her Lever Operator. * Insulin use for 22 years * [...] * She was not seen by a Pbx Operator. * Psych History: * No history * Psychosocial: * Smoking: yes, takes Bupropion. She is cutting back and now smokes 3 cigarettes per day. She has a 50 pack/year history. * Marijuana/Illicits: No * Alcohol: no * Financial: * She is retired. 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 * She [...] is vaccinated against COVID-19 but not boosted. [id number] [address]elin [address] Work Phone: Chief Complaint and [...] diabetes mellitus Atherosclerosis of coronary artery of holy cross heart without angina pectoris Chronic obstructive pulmonary disease Cigarette nicotine dependence Chief Complaint 3 M FU CP CP Amb Documentation Amb Documentation OVERDUE FOR OV (2020) COPD COPD Reason for Visit Atherosclerosis of c oronary artery of holy cross heart without angina pectoris Chronic obstructive pulmonary disease Cigarette nicotine dependence Atherosclerosis of coronary artery of holy cross heart without angina pectoris Essential (primary) hypertension Hyperlipidemia Chief Complaint 3 M FU CP CP Amb Documentation Amb Documentation OVERDUE FOR OV (2020) COPD COPD SMOKER Reason for Visit Atherosclerosis of c oronary artery of holy cross heart without angina pectoris Chronic obstructive pulmonary disease Cigarette nicotine dependence Atherosclerosis of coronary artery of [place] cross heart without angina pectoris Essential (primary) hypertension Hyperlipidemia Chief Complaint CP CP Amb Documentation Amb Documentation OVERDUE FOR OV (2020) COPD COPD SMOKER COPD COPD Reason for Visit Atherosclerosis of c oronary artery of holy cross heart without angina pectoris Essential (primary) hypertension [...] with hypoxia Atherosclerosis of coronary artery of [place] cross heart without angina pectoris Essential (primary) hypertension Hyperlipidemia Chief Complaint FLANK PAIN, ABD PAIN 3 M FU 6 M FU 3 M FU RENAL,PTH, CBC Reason for Visit Lung nodule, solitar y Chronic obstructive pulmonary disease Respiratory failure with hypoxia Atherosclerosis of coronary artery of [place] cross heart without angina pectoris Essential (primary) hypertension [...] with hypoxia Atherosclerosis of coronary artery of [place] cross heart without angina pectoris Essential (primary) hypertension [...] Visit Atherosclerosis of c oronary artery of holy cross heart without angina pectoris Essential (primary) hypertension [...] 2024 2:26pm Atherosclerosis of coronary artery of holy cross heart without angina pectoris December 16, 2024 [...] DM type 1 (diabetes mellitus, type 1) [facility] 2024 11:39pm Hypertension January 03, 2025 11:3 9pm Acute hyperkalemia January 03, 2025 11:3 9pm Chronic hypoxemic respiratory failure [facility] 2024 11:39pm AV fistula January 11, 2025 [...] 2024 2:26pm Atherosclerosis of coronary artery of holy cross heart without angina pectoris December 16, 2024 [...] DM type 1 (diabetes mellitus, type 1) [facility] 2024 11:39pm Hypertension January 03, 2025 11:3 9pm Acute hyperkalemia January 03, 2025 11:3 9pm Chronic hypoxemic respiratory failure [facility] 2024 11:39pm AV fistula January 11, 2025 2:5 5pm DM type 1 (diabetes mellitus, type 1) [facility] 2024 8:40am High cholesterol January 27, 2025 [...] Will No August 26 8:15pm Power of Furnace Firer No August 26, 2020 8:15pm Advance Directive Response Recorded Date/ Time Advance Directives No February 04 7:01am Living Will No August 26 7:15pm Power of Furnace Firer No August 26, 2020 7:15pm Date Activated [...] Do you have a Healthcare Power of Furnace Firer? No August 26, 2020 8:15pm Living Will No April 14, 2024 10:45pm Do you have a Healthcare Power of Furnace Firer? No April 14, 2024 10:45pm Advance Directives No January 10 025 9:10am Living Will No July 24, 2024 12:39am Do you have a Healthcare Power of Furnace Firer? No July 24, 2024 12:39am Living Will No November 20 8:06pm Do you have a Healthcare Power of Furnace Firer? No November 20, 2024 8:06pm Living Will No December 14 025 2:25pm Do you have a Healthcare Power of Furnace Firer? No December 14, 2024 2:25pm Living Will No January 04, 2025 1:39am Do you have a Healthcare Power of Furnace Firer? No January 04, 2025 1:39am Advance Directive Response Recorded Date/ Time Living Will No April 14, 2024 10:45pm Do you have a Healthcare Power of Furnace Firer? No April 14, 2024 10:45pm Advance Directives No January 10 025 9:10am Living Will No December 14 2:25pm Do you have a Healthcare Power of Furnace Firer? No December 14, 2024 2:25pm Living Will No January 04, 2025 1:39am Do you have a Healthcare Power of Furnace Firer? No January 04, 2025 1:39am Summary Purpose Reason for Referral Specialty Diagnoses / Procedures Referred By Contac t Referred To Contact Radiology Diagnoses SDH (subdural hematoma) (HCC) Procedures CT head wo IV contrast Madeline Montalvo, WINDOWS APPLICATION ADMINISTRATOR - PARENT AIDE [address] [place] [address] Referral ID Status Reason Start Date Expiration Date V isits Requested Visits Authorized [id number] Authorized 07/27/2024 07/27/2025 1 1 Specialty Diagnoses / Procedures Referred By Contac t Referred To Contact Radiology Diagnoses SDH (subdural hematoma) (HCC) Procedures CT head wo IV contrast Elieser Solis MD [address] [place] [address] Referral ID Status Reason Start Date Expiration Date Visits Re quested Visits Authorized [id number] Closed 07/27/2024 09/10/2024 1 1 Additional Source [...] DATE CREATED AUTHOR AUTHOR'S ORGANIZ ATION 06/03/2022 [facility] DATE CREATED AUTHOR AUTHOR'S ORGANIZ ATION 12/18/2024 [facility] DATE CREATED AUTHOR AUTHOR'S ORGANIZ ATION 12/31/2024 [facility] DATE CREATED AUTHOR AUTHOR'S ORGANIZ ATION 03/31/2025 [facility] Care Teams (unrecognized sec tion and [...] Refe rring Provider Active Jeanna Davis NP, LANDSCAPE CREW MEMBER-C Attending Provider Active Team Status: Active Member [...] Active Member Role Status Dates Jeanna Davis LANDSCAPE CREW MEMBER, LANDSCAPE CREW MEMBER-C Referring Provider, Other Pr ovider Active Dr. Sin Lujan MD Primary Care Provider Activ e Dr. Rios Cordova MD Attending Provider Active Team Status: Inactive Member Role Status Dates Jeanna Davis LANDSCAPE CREW MEMBER, LANDSCAPE CREW MEMBER-C Attending Provider, Referrin g Provider Active Dr. Sin Lujan MD Primary Care Provider Activ e Team Status: Inactive Member Role Status Dates Dr. Sin Lujan MD Primary Care Provider Activ e Dr. Christy Huerta DO Attending Provider Active Team Status: Active Member Role Status Dates Jeanna Davis LANDSCAPE CREW MEMBER, LANDSCAPE CREW MEMBER-C Referring Provider, Other Pr ovider Active Dr. [...] Primary Care Provider Activ e Jeanna Davis LANDSCAPE CREW MEMBER, LANDSCAPE CREW MEMBER-C Attending Provider Active Team Status: Inactive Member Role Status Dates Dr. Sin Lujan MD Primary Care Provider, Refe rring Provider Active Kena Sandy LANDSCAPE CREW MEMBER, LANDSCAPE CREW MEMBER-C Attending Provider Active Team Status: Inactive Member Role Status Dates Dr. Sin Lujan MD Primary Care Provider Activ e Jeanna Davis LANDSCAPE CREW MEMBER, LANDSCAPE CREW MEMBER-C Attending Provider, Referrin g Provider Active Team Status: Active Member Role Status Dates Dr. Bird Lujan MD Family Provider Active Dr. Bird Lujan MD Primary Care Provider Acti ve Team Status: Inactive Member Role Status Dates Dr. Bird Lujan MD Primary Care Provider, Ref erring Provider Active Kena Sandy LANDSCAPE CREW MEMBER, LANDSCAPE CREW MEMBER-C Attending Provider Active Team Status: Inactive Member Role Status Dates Dr. Bird Lujan MD Primary Care Provider, Ref erring Provider Active Brenda Medrano LANDSCAPE CREW MEMBER-C Attending Provider Active Team Status: Inactive Member Role Status Dates Dr. Bird Lujan MD Primary Care Provider, Ref erring Provider Active Jeanna Davis LANDSCAPE CREW MEMBER, LANDSCAPE CREW MEMBER-C Attending Provider Active Team Status: Inactive Member Role Status Dates Dr. Bird Lujan MD Primary Care Provider Acti ve Dr. Christy Huerta DO Attending Provider Active Team Status: Inactive Member Role Status Dates Dr. Bird Lujan MD Primary Care Provider Acti ve Jeanna Davis LANDSCAPE CREW MEMBER, LANDSCAPE CREW MEMBER-C Attending Provider, Referrin g Provider Active Team Status: Inactive Member Role Status Dates Dr. Bird Lujan MD Primary Care Provider Acti ve Dr. Sherice Skelton , DPM Attending Provider, Referring Pr ovider Active Geology Professor Relationship Specialty Start Date End Date Bird Lujan [address] [place] [address] PCP - General Family Medicine 07/26/24 Geology Professor Relationship Specialty Start Date End Date Bird Lujan [address] [place] [address] PCP - General Family Medicine 07/26/24 Param Sousa, RN Registered Nurse Liberal Arts Dean Manager 08/11/24 Geology Professor Relationship Specialty Start Date End Date Bird Lujan [address] [place] [address] PCP - General Family Medicine 07/26/24 Param Sousa, RN Registered Nurse Liberal Arts Dean Manager 08/11/2409/26 Geology Professor Relationship Specialty Start Date End Date Bird Lujan [address] [place] [address] PCP - General Family Medicine 07/26/24 Geology Professor Relationship Specialty Start Date End Date Bird Lujan [address] [facility] [address] [place] [phone] PCP - General Family Medicine 07/26/24 Geology Professor Relationship Specialty Start Date End Date Bird Lujan [address] [facility] [address] [place] [address] PCP - General Family Medicine 07/26/24 Param Sousa RN Registered Nurse Liberal Arts Dean Manager 08/11/2409/26 Geology Professor Relationship Specialty Start Date End Date Bird Lujan MD [address] [facility] [place], [place] [address] PCP - General 10/17/08 Team Status: Active [...] End: October 16, 2024 Jeanna Davis NP, LANDSCAPE CREW MEMBER-C Attending Provider Active Start: October 16, 2024 End: October 16, 2024 Jeanna Davis NP, LANDSCAPE CREW MEMBER-C Referring Provider Active Start: October 16, 2024 [...] 2024 End: November 04, 2024 Jeanna Davis LANDSCAPE CREW MEMBER, LANDSCAPE CREW MEMBER-C Attending Provider Active Start: November 04, 2024 [...] End: December 16, 2024 Mynor Anthony NP, LANDSCAPE CREW MEMBER-C Attending Provider Active S tart: December 16, [...] Sta rt: January 04, 2025 Dr. Yue Franco MD Other Provider Active Sta rt: January [...] Active Sta rt: January 05, 2025 Dr. eH Cat MD Referring Provider Active Start: January [...] End: January 11, 2025 Jeanna Davis NP, LANDSCAPE CREW MEMBER-C Attending Provider Active Start: January 11, 2025 End: January 11, 2025 Jeanna Davis NP, LANDSCAPE CREW MEMBER-C Referring Provider Active Start: January 11, 2025 [...] Conte MD [address] [place] [address] [facility] [address] [place] [address] Referral ID Status Reason Start Date Expiration Date Visits Re quested Visits Authorized [id number] 1 1 Specialty Diagnoses / Procedures Referred By Contac t Referred To Contact Radiology Diagnoses SDH (subdural hematoma) (HCC) Procedures CT head wo IV contrast Elieser Solis MD [address] [place] [address] Referral ID Status Reason Start Date Expiration Date Visits Re quested Visits Authorized [id number] Closed 07/27/2024 09/10/2024 1 1 Reason Comments [...] Elizabeth Tyler MD [address] [place] [address] Phone: tel: fax: [facility] Medical Intensive Care Unit [address] [place] [address] Phone: tel: Referral ID Status Reason Start Date Expiration Date Visits Re quested Visits Authorized [id number] 1 1 Reason Comments Referral - Kidney [...] Rouse RCP)2030 (Given - Provider: Daina Carvalho, JDUE) 0905 (Given - Provider: Mary Mcintosh, JUDE)1433 (Given - Provider: Mary Mcintosh RRT)2239 (Given - Provider: Marylu Montanez RCP) 0806 (Given - Provider: Eren Mckeon RCP)1200 (Not Given - Provider: Eren Mckeon [...] Tract Infection 2123 (Given - Provider: Joycelyn Wlech RN) 1319 (Given - Provider: Jim Rodriguez [...] sedation for opioid reversal - MUST notify it solutions architect provider immediately after first dose, may give [...] fever, Starting on 08/01/24 at 1331, Give CT if unable to administer by mouth or [...] Romero Tobin, MOODY) 0845 (Given - Provider: Nioklay Rene, MOODY)204 (Given - Provider: Juanis Rojas [...] Rojas, MOODY) 0833 (Given - Provider: Sindy Garrison, MOODY) guaiFENesin (Mucinex) 12 hr tablet 600 [...] Rene RN) 0831 (Given - Provider: Sindy Garrison, MOODY) potassium chloride CR (Klor-Con M10) ER [...] Starting on Fri08/17/24 at 1646 sodium chloride (Haliimaile) 0.65 % nasal spray 1 spray 1 [...] or prosecute any alcohol or drug abuse patient.[facility]In the event this information is protected by the Federal Confidentiality of Alcohol and Drug Abuse Patient Records regulations: The Federal rules restrict any use of the information to criminally investigate or prosecute any alcohol or drug abuse patient.[facility] NorthIn the event this information is protected by the Federal Confidentiality of Alcohol and Drug Abuse Patient Records regulations: The Federal rules restrict any use of the information to criminally investigate or prosecute any alcohol or drug abuse patient.[facility] FOR RECORDS PERTAINING TO PATIENTS WHO ARE [...] BE BASED ON THE PRIMARY CLINICAL RECORDS. [facility]. provides no warranty or guarantee of the accuracy or completeness of information in this document.
[2025-04-09 13:05] LABS: Magnesium 2.2 mg/dL (1.5-2.2)
[2025-04-09 13:18] LABS: Anion Gap 8 (5-15); BUN 19 mg/dL (4-19); BUN/Creat Ratio 5.6 RATIO (10-20); Calcium,Total 9.2 mg/dL (7.6-11.0); Carbon Dioxide 31.4 mmol/L (21.0-32.0); Chloride 102 mmol/L (98-108); Creatinine, Serum 3.39 mg/dL (0.70-1.20); EST Glomerular Filtration Rate 14 (>60); Glucose 151 mg/dL (70-99); Potassium 2.8 mmol/L (3.3-5.1); Sodium Level 142 mmol/L (133-145)
[2025-04-09 13:59] VITALS: BP 163/78; PULSE 50; RESP 16; TEMP 36.6; O2SAT 100
== END 2025-04-09 13:59 | disposition home or self-care (01) ==
PROVIDERS: Emergency Provider Emergency Medicine; PCP Family Medicine; Visit Provider Emergency Medicine
DX: E87.6 Hypokalemia (principal); I12.0 Hypertensive chronic kidney disease with stage 5 chronic kidney disease or end stage renal disease; N18.6 End stage renal disease; J96.11 Chronic respiratory failure with hypoxia; J44.9 Chronic obstructive pulmonary disease, unspecified; Z79.4 Long term (current) use of insulin; E10.42 Type 1 diabetes mellitus with diabetic polyneuropathy; E10.22 Type 1 diabetes mellitus with diabetic chronic kidney disease; I25.10 Atherosclerotic heart disease of native coronary artery without angina pectoris; I25.2 Old myocardial infarction; E78.00 Pure hypercholesterolemia, unspecified; F17.210 Nicotine dependence, cigarettes, uncomplicated; Z99.2 Dependence on renal dialysis; Z95.5 Presence of coronary angioplasty implant and graft; Z99.81 Dependence on supplemental oxygen; Z79.02 Long term (current) use of antithrombotics/antiplatelets; Z79.899 Other long term (current) drug therapy
CPT/HCPCS: 80048; 83735; 93005; 99283; A4216

== ENCOUNTER → 2025-04-11 | Outpatient (CLI) | payer MEDICARE, OTHER, SELFPAY ==
[2025-04-11 13:09] LABS: Potassium 3.7 mmol/L (3.3-5.1)
== END | disposition home or self-care (01) ==
LOC: LABSPEC 12:50
PROVIDERS: PCP Family Medicine; Referring Provider Internal Medicine Nephrology; Visit Provider Internal Medicine Nephrology
DX: E87.6 Hypokalemia (principal); N18.6 End stage renal disease
CPT/HCPCS: 84132

== ENCOUNTER 2025-05-08 07:59 | Emergency (ER) | payer MEDICARE, OTHER, SELFPAY ==
[2025-05-08 08:01] VITALS: BP 185/62; PULSE 52; RESP 18; TEMP 36.4; O2SAT 100; BMI 16.3
[2025-05-08 08:58] LABS: Hematocrit 37.2 % (37-47); Hemoglobin 11.2 g/dL (12.0-15.0); Immature Granulocytes Count 0.010 X10^3/uL (0.0-0.0); Mean Corp Hgb Conc 30.1 g/dL (32-36); Mean Corpuscular Volume 93.2 fL (81-99); Mean Platelet Vol. 9.9 fl (6.2-12.0); NRBC Flagged by Analyzer 0 % (0-5); Platelet Count 154 K/mm3 (150-450); RBC Distribution Width CV 13.8 % (11.6-14.6); RBC Distribution Width SD 47.4 fl (35.1-43.9); Red Blood Count 3.99 M/mm3 (4.2-5.4); White Blood Count 5.9 K/mm3 (4.4-11.0)
[2025-05-08 08:58] LABS: Mucous, Urine 0 SEEN /hpf (<or=2+); Red Blood Cells-Urine 0 SEEN /hpf (0-5)
[2025-05-08 08:59] LABS: Color, Urine Yellow (Yellow); Glucose, Dipstick 50 mg/dl (Normal); Ketone-Dipstick Negative (Negative); Leukocyte Esterase-Dipstick Negative /ul (Negative); Nitrite-Dipstick Negative (Negative); Occult Blood-Urine 25 /ul (Negative); Protein-Dipstick 500 mg/dl (Negative); Specific Gravity, Urine 1.020 (1.002-1.030); Urine Bilirubin Dipstick Negative (Negative)
[2025-05-08 09:06] LABS: Squamous Epithelial Cells - UA 0-5 SEEN /hpf (5-10)
[2025-05-08 09:13] VITALS: BP 176/63; PULSE 53; RESP 16; TEMP 37.2; O2SAT 100
[2025-05-08 09:26] LABS: BETA-HYDROXYBUTYRATE 0.4 mmol/L (0.0-0.3)
[2025-05-08 09:28] LABS: AST(SGOT) 22 U/L (<=31); Alanine Aminotransfer ALT/SGPT 9 U/L (<=34); Albumin, Serum 3.6 g/dL (3.4-4.8); Alkaline Phosphatase 63 U/L (35-104); Anion Gap 11 (5-15); BUN 34 mg/dL (4-19); BUN/Creat Ratio 8.8 RATIO (10-20); Calcium,Total 8.3 mg/dL (7.6-11.0); Carbon Dioxide 28.6 mmol/L (21.0-32.0); Chloride 102 mmol/L (98-108); Estimated Creatinine Clearance 10.39 ml/min (50-250); Globulin 2.7 g/dL (2.2-4.2); Glucose 113 mg/dL (70-99); Lipase 12 U/L (13-75); Magnesium 2.1 mg/dL (1.5-2.2); Potassium 3.4 mmol/L (3.3-5.1)
[2025-05-08 09:51] LABS: FI02 2.0; SITE Not entered; VBG BASE EXCESS 8 mmol/L (-1.0-3.5); VBG PO2 27 mmHg (25-40); VBG SO2 44 % (50-70); VBG TCO2 37 mmol/L (23-33)
[2025-05-08 10:00] VITALS: BP 171/65; PULSE 54; RESP 16; TEMP 37; O2SAT 100
[2025-05-08 11:00] VITALS: PULSE 60; O2SAT 100
[2025-05-08 12:00] VITALS: PULSE 61; O2SAT 100
[2025-05-08 12:50] VITALS: BP 171/65; PULSE 61; RESP 16; TEMP 37; O2SAT 100
== END 2025-05-08 13:00 | disposition home or self-care (01) ==
PROVIDERS: Emergency Provider Surgery; PCP Family Medicine; Visit Provider Surgery
DX: R10.9 Unspecified abdominal pain (principal); I12.0 Hypertensive chronic kidney disease with stage 5 chronic kidney disease or end stage renal disease; N18.6 End stage renal disease; J44.9 Chronic obstructive pulmonary disease, unspecified; E10.42 Type 1 diabetes mellitus with diabetic polyneuropathy; E10.22 Type 1 diabetes mellitus with diabetic chronic kidney disease; I25.10 Atherosclerotic heart disease of native coronary artery without angina pectoris; I25.2 Old myocardial infarction; Z87.891 Personal history of nicotine dependence; Z96.41 Presence of insulin pump (external) (internal)
CPT/HCPCS: 71046; 74177; 80053; 81001; 82010; 82803; 83690; 83735; 85025; 96374; 99285; P9612; Q9967; A4216; J2405

== ENCOUNTER 2025-05-20 20:20 | Emergency (ER) | payer MEDICARE, OTHER, SELFPAY ==
[2025-05-20 20:21] VITALS: BP 171/56; PULSE 59; RESP 16; TEMP 36.4; O2SAT 100
[2025-05-20 21:34] VITALS: BP 186/63; PULSE 52; RESP 12; O2SAT 100
--- NOTE | 2025-05-20 21:40 | EDS_ITS ---
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 Patient states that she had basic lab work drawn and was called today because her potassium was 2.9 and was advised to come to the emergency department. Patient has no complaints and feels well otherwise. She denies recent illness. She is not on any diuretics. She does have history of COPD and wears 3 L nasal cannula at all times. [facility] Medical History On home oxygen therapy Wears hearing aid Wears glasses Post-menopausal Insulin dependent diabetes mellitus Diabetes History of renal dialysis History of renal disease Anemia High cholesterol Easy bruising Excessive bleeding Injury of head and neck Former smoker Emphysema, unspecified History of edema History of echocardiogram History of stress test Cardiology follow-up encounter Osteoporosis Presence of insulin pump Severely underweight adult Lung nodule, multiple Nicotine abuse Lung nodule, solitary Fissure in skin of foot Pyatt's sign present Tobacco abuse CKD (chronic kidney disease) stage 4, GFR 15-29 ml/min Body mass index (BMI) less than 16.5 Underweight Polyneuropathy due to type 1 diabetes mellitus Stage 4 chronic kidney disease due to type 1 diabetes mellitus Respiratory failure with hypoxia Smoking greater than 30 pack years Anemia Diabetic nephropathy, type I Hyperkalemia Renal insufficiency Diabetes Chronic obstructive pulmonary disease Essential (primary) hypertension Hypersomnia Anxiety Depression Atherosclerosis of coronary artery of [place] heart without angina pectoris NSTEMI (non-ST elevated myocardial infarction) (01/12/18) DM type 1 (diabetes mellitus, type 1) Hyperlipidemia COPD (chronic obstructive pulmonary disease) Home Medications ?Medication ?Instructions ?Recorded ?Last Taken ?Type simvastatin 40 mg tablet 40 mg PO QHS cholesterol 01/03/25 History albuterol sulfate 2.5 mg/3 mL 2.5 mg (3 mL) inhalation Q2H PRN 06/23/18 Unknown Rx (0.083 %) solution for nebulization PRN dyspnea, wheez ing ##1 aspirin 81 mg tablet,delayed 81 mg PO DAILY heart heal th 12/31/19 01/03/25 History release oxygen See Rx Instructions NASAL .C OMPLEX 12/03/23 01/04/25 History O2 therapy ipratropium 0.5 mg-albuterol 3 mg 3 ml inhalation Q4H PRN PRN SOB 12/29/23 Unknown Rx (2.5 mg base)/3 mL nebulization &/OR WHEEZING #180 mL soln denosumab 60 mg/mL subcutaneous 60 mg subcut [id number] bone health 06/10/24 07/09/24 Rx syringe (Prolia) #1 mL clopidogrel 75 mg tablet 75 mg PO DAILY anti platelet #90 07/26/24 01/03/25 Rx tabs nitroglycerin 0.4 mg sublingual 0.4 mg sublingual Q5-1 5M PRN chest 10/21/24 Unknown Rx tablet pain #25 tabs metoprolol tartrate 50 mg tablet 50 mg PO BID blood pr essure #180 11/11/24 01/03/25 Rx tabs amlodipine 10 mg tablet (Norvasc) 10 mg PO DAILY blood pressure 30 11/20/24 01/03/25 Rx days #30 tabs buspirone 7.5 mg tablet 7.5 mg PO DAILY Antianxiety 12/14/24 01/03/25 History sevelamer carbonate 800 mg tablet 800 mg PO TID To low er Phosphorus 12/14/24 01/03/25 History cefdinir 300 mg capsule 300 mg PO BID 5 days #10 cap s 01/06/25 Unknown Rx pseudoephedrine-guaifenesin ER 60 1 tab PO BID cold sy mptoms #14 tabs 01/06/25 Unknown Rx mg-600 mg tablet,extend release 12hr (Mucinex D) blood-glucose sensor (FreeStyle #6 ea 02/09/25 Unknown Rx Eileen 2 Plus Sensor device) insulin pump cart,auto,BT,G6/L #30 ea 02/09/25 Unknown Rx (Omnipod 5 (G6/Eileen 2 Plus) subcutaneous cartridge) albuterol sulfate 90 mcg/actuation 2 puff inhalation Q 6H PRN PRN 03/14/25 Unknown Rx aerosol inhaler Cough #8.5 grams blood-glucose sensor (Dexcom G6 #3 ea 04/07/25 Unknown Rx Sensor device) blood-glucose transmitter (Dexcom #1 ea 04/07/25 Unkno wn Rx G6 Transmitter device) insulin lispro 100 unit/mL 60 unit (0.6 mL) continuous 04/07/25 Unknown Rx subcutaneous solution (Humalog subcutaneous infusion . continuous U-100 Insulin) #54 mL ondansetron 4 mg disintegrating 4 mg PO Q8H PRN PRN Na usea #10 tabs 05/08/25 Unknown Rx tablet roflumilast 500 mcg tablet 500 mcg PO DAILY breathing #30 tabs 05/11/25 Unknown Rx (Daliresp) fluticasone fur. 200 mcg-umeclid 1 inh inhalation HAJA Y breathing 05/18/25 Unknown Rx 62.5 mcg-vilant 25 mcg #3 ea inhalat.powder (Trelegy Ellipta) Allergy/AdvReac Type Severity Reaction Status Date / Time No Known Allergies Allergy Verified 05/20/25 20:21 Family History Mother Heart disease COPD (chronic obstructive pulmonary disease) Lupus Daughter Growth disorder Down syndrome Fibromyalgia Grandfather Colon cancer Diabetes Grandmother Heart disease CVA (cerebral vascular accident) Diabetes Pulmonary disease Sister Hypertension Kidney disease Surgical History Hx of surgical procedure History of cardiac catheterization History of coronary artery stent placement Hx of surgical procedure H/O: Hx of appendectomy H/O: hysterectomy History of coronary artery stent placement (02/04/18) Social History household members: spouse housing: house pets and animals: Yes pets and animals: cat(s) Smoking Status: Former smoker how long ago did patient quit smoking: Since 05/2024 cut back and has only had ~ 10 cigarettes since then. quit status: considering quitting alcohol intake: never substance use type: does not use caffeine: Yes Type: carbonated beverages Number of servings: 4 what type of physical activity do you participate in: none seatbelt use: always do you feel safe at home: Yes ROS ROS ED ROS Narrative Low potassium of 2.9 Review of Systems ROS Unobtainable: other Constitutional Constitutional ED: Reports lethargy; Denies chills, fever(s), sweats or weight loss Eyes Eyes: Denies blurry vision, change in vision or diplopia ENT ENT ED: Denies rhinorrhea or sore throat Cardiovascular Cardiovascular: Denies chest pain, orthopnea or racing heartbeat Respiratory/Chest Respiratory/Chest: Denies cough, dyspnea, dyspnea on exertion, orthopnea or sputum Gastrointestinal Gastrointestinal: Denies abdominal pain, diarrhea, nausea or vomiting Genitourinary Genitourinary ED: Denies dysuria, hematuria or urinary frequency Musculoskeletal Musculoskeletal: Denies arthralgias, back pain, myalgias or neck pain Integumentary Denies abscess, Abrasions or rash Neurologic Neurologic: Denies headache(s) or weakness Psychiatric Psychiatric: Denies anxiety, depression or suicidal thoughts Endocrine Endocrinology: Denies polydipsia, polyphagia or polyuria Hematologic/Lymphatic Hematologic/Lymphatic: Denies easy bleeding, easy bruising or lymphadenopathy Allergic/Immunologic Allergic/Immunologic ED: Denies mouth swelling, tongue swelling or urticaria EXAM Physical Exam Const Vital Signs: 05/20/25 20:21 05/20/25 21:30 05/20/25 21:34 Temperature 97.5 F L Temperature Source Oral Pulse Rate 59 L 52 L Respiratory Rate 16 12 Respiratory Effort Normal Respiratory Pattern Normal Blood Pressure 171/56 H 186/63 H Blood Pressure Mean 94 104 Pulse Ox 100 100 Oxygen Delivery Method Nasal Cannula Nasal Cannula Oxygen Flow Rate (L/min) 3 Positive well nourished and well developed General Appearance ED: well developed and NAD HEENT Reports TM's clear and moist mucous membranes normocephalic and atraumatic; Negative for trauma or tenderness Tympanic Membrane ED: Yes TM's clear Eyes PERRL and EOMs intact bilaterally General Eye ED: Negative for pale conjunctiva or scleral icterus Neck no lymphadenopathy, supple and no JVD General: Negative for tenderness Chest Wall inspection of chest normal and palpation of chest normal Chest: Negative for tenderness Resp normal respiratory effort and clear to auscultation bilaterally Effort and Inspection: Negative for respiratory distress or pain with movement Auscultation: Negative for rhonchi, wheezes or diminished lung sounds Cardio regular rate, regular rhythm, S1 normal heart sound, S2 normal heart sound and no murmurs Peripheral Pulses: pulses 2+ throughout GI normal to inspection, nondistended, normoactive bowel sounds, soft to palpation, non-tender, non-distended and no masses Back/Spine no CVA tenderness and no thoracic nor lumbar tenderness Extremity Extremity Narrative: Fistula at the right upper arm with normal thrill and bruit General Extremety ED: Negative for edema General Extremity: Negative for edema Neuro oriented x3, CN's II-XII intact bilaterally, no sensory deficits noted and gait normal Sensorium / Orientation: awake, alert, oriented to person, oriented to place and oriented to time Motor Exam: strength 5/5 throughout and strength abnormal Psych mental status grossly normal Skin no rashes or lesions noted and no wounds MDM MDM MDM Narrative Medical decision making narrative: Patient presents at 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 I did repeat the labs and her potassium for us was 3.2. She has no complaints. I do not feel she needs IV potassium. Will treat her with p.o. potassium 60 mEq x 1 and will discharge to home. Advised her to follow-up with her primary care physician and carbon paper coating machine setter as needed. Lab Data Attestation: I reviewed the patient's lab results. Labs: Laboratory Results - last 24 hr 05/20/25 21:23 Sodium 138 Potassium 3.2 L Chloride 100 Carbon Dioxide 27.7 Anion Gap 10 BUN 20 H Creatinine 2.33 H Estim Creat Clear Calc 19.11 L Est GFR (MDRD) Non-Af 23 L BUN/Creatinine Ratio 8.6 L Glucose 164 H Calcium 7.9 Discharge Plan Triage Chief Complaint: Abn Labs ED Provider: Alonzo Edwards Dx/Rx/DC Orders Clinical Impression: Acute hypokalemia Instructions: ED Hypokalemia Prescriptions: No Action aspirin 81 mg tablet,delayed release (DR/EC) 81 mg PO DAILY oxygen See Rx Instructions NASAL .COMPLEX Rx Instructions: 3L NASALLY; 3 l Trelegy Ellipta 200-62.5-25 mcg blister with device 1 inh inhalation DAILY Qty: 3 3RF simvastatin 40 MG tablet 40 mg PO QHS albuterol sulfate 2.5 MG/3 ML solution for nebulization 2.5 mg INHALATION Q2H PRN PRN (Reason: dyspnea, wheezing) Qty: 1 0RF amlodipine [Norvasc] 10 mg tablet 10 mg PO DAILY 30 Days Qty: 30 0RF sevelamer carbonate 800 mg tablet 800 mg PO TID buspirone 7.5 mg tablet 7.5 mg PO DAILY Patient Comments: PT ONLY WANTS TO TAKE ONCE PER DAY cefdinir 300 mg capsule 300 mg PO BID 5 Days Qty: 10 0RF pseudoephedrine-guaifenesin [Mucinex D] 60-600 mg tablet extended release 12 hr 1 tab PO BID Qty: 14 0RF ondansetron 4 mg tablet,disintegrating 4 mg PO Q8H PRN PRN (Reason: Nausea) Qty: 10 0RF ipratropium-albuterol 0.5 mg-3 mg(2.5 mg base)/3 mL solution for nebulization 3 ml inhalation Q4H PRN PRN (Reason: SOB &/OR WHEEZING) Qty: 180 6RF Prolia 60 mg/mL syringe 60 mg subcut [id number] Qty: 1 1RF Patient Comments: Next injection is 01/06/2025 clopidogrel 75 mg tablet 75 mg PO DAILY Qty: 90 3RF nitroglycerin 0.4 mg tablet, sublingual 0.4 mg SUBLINGUAL Q5-15M PRN (Reason: chest pain) Qty: 25 44RF Rx Instructions: until response; do not exceed 3 doses per episode metoprolol tartrate 50 mg tablet 50 mg PO BID Qty: 180 3RF (DME) FreeStyle Eileen 2 Plus Sensor Device See Rx Instructions .Route Qty: 6 2RF Rx Instructions: 1 sensor q 15 days (DME) Omnipod 5 (G6/Eileen 2 Plus) Cartridge See Rx Instructions .Route Qty: 30 2RF Rx Instructions: 1 pod q 3 days, must be compatible with eileen 2 plus albuterol sulfate 90 mcg/actuation HFA aerosol inhaler 2 puff INHALATION Q6H PRN PRN (Reason: Cough) Qty: 8.5 2RF insulin lispro [Humalog U-100 Insulin] 100 unit/mL solution 60 unit continuous subcutaneous infusion .continuous Qty: 54 1RF Rx Instructions: via insulin pump Advised to increase the insulin pump (DME) Dexcom G6 Sensor Device See Rx Instructions .Route Qty: 3 5RF Rx Instructions: 1 sensor q 10 days (DME) Dexcom G6 Transmitter Device See Rx Instructions .Route Qty: 1 1RF Rx Instructions: 1 transmitter q 90 days roflumilast [Daliresp] 500 mcg tablet 500 mcg PO DAILY Qty: 30 11RF Primary Care Provider: Bird Lujan Referrals: Bird Lujan MD [Primary Care Provider] - Print Language: [place] Disposition Disposition: Home, Self Care
--- OUTSIDE RECORDS SUMMARY | 2025-05-20 22:16 | XMS RPT_ITS | CCD ---
Author Organization [facility] Care Team Providers Care Behavioral Health Care Coordinator Name Role Phone Ruggeri BUSINESS SERVICES TECH, Ana Rosa F Unavailable Unavailabl e Ruggeri BUSINESS SERVICES TECH, Ana Rosa F Unavailable Unavailabl e Dr. Sin Lujan Primary Care Provider Dr. Sin Lujan Referring Provider ELLIE Medrano Attending Provider Dr. Rios Cordova Attending Provider [phone] ELLIE Medrano Attending Provider Dr. Rios Cordova Referring Provider None, No PCP Unavailable Unavailable Dr. Sin Lujan Primary Care Provider Dr. Sin Lujan Referring Provider Susan STORE ASSISTANT, STORE ASSISTANT-Marquis Meeks Attending Provider [phone] ELLIE Medrano Attending Provider [phone] Susan JUÁREZ, MARQUITA-C Jeanna Referring Provider Susan JUÁREZ, STORE ASSISTANT-C Jeanna Other Provider Dr. Rios Cordova Attending Provider Dr. Sin Lujan Primary Care Provider Dr. Sin Lujan Referring Provider ELLIE Medrano Attending Provider [phone] Susan STORE ASSISTANT, STORE ASSISTANT-C Jeanna Referring Provider [phone] Susan STORE ASSISTANT, STORE ASSISTANT-C Jeanna Other Provider Dr. Rios Cordova Attending Provider [phone] Rios Cordova Referring Provider Dr. Sin Lujan Primary Care Provider [phone] Dr. Sin Lujan Referring Provider ELLIE Medrano Attending Provider Susan STORE ASSISTANT, STORE ASSISTANT-C Jeanna Attending Provider [phone] BENTON Hardy Referring Provider BENTON Hardy Other Provider Dr. Salomon Robbins Attending Provider Radha Aranda Attending Provider Unavailable Dr. Sin Lujan Primary Care Provider [phone] Dr. Sin Lujan Referring Provider Heidi Russell Attending Provider Unavailable BENTON Hardy Attending Provider Susan STORE ASSISTANT, STORE ASSISTANT-C Jeanna Referring Provider [phone] Susan STORE ASSISTANT, STORE ASSISTANT-C Jeanna Other Provider Dr. Rios Cordova Attending Provider Dr. Sin Lujan Primary Care Provider Dr. Sin Lujan Referring Provider Dr. Terrance Alva Attending Provider Susan STORE ASSISTANT, STORE ASSISTANT-C Jeanna Referring Provider [phone] Susan STORE ASSISTANT, STORE ASSISTANT-C Jeanna Other Provider Dr. Sin Lujan Primary Care Provider Dr. Terrance Alva Attending Provider Dr. Sin Lujan Referring Provider Dr. Rios Cordova Attending Provider [phone] ELLIE Medrano Attending Provider Dr. Sin Lujan Primary Care Provider Dr. Sin Lujan Primary Care Provider Dr. Sin Lujan Referring Provider Susan STORE ASSISTANT, STORE ASSISTANT-C Jeanna Attending Provider Dr. Sin Lujan Primary Care Provider Dr. Sin Lujan Referring Provider Du STORE ASSISTANT, STORE ASSISTANT-C Kena Attending Provider Dr. Sin Lujan Primary Care Provider Dr. Sin Lujan Referring Provider Susan STORE ASSISTANT, STORE ASSISTANT-C Jeanna Attending Provider [phone] Du STORE ASSISTANT, STORE ASSISTANT-C Kena Attending Provider MARQUITA Medrano-Marquis Gutierrez Attending Provider Dr. Bird Lujan Primary Care Provider [phone] Dr. Bird Lujan Referring Provider Susan STORE ASSISTANT, STORE ASSISTANT-C Jeanna Attending Provider Bird Lujan Primary Care Provider Bird Lujan Primary Care Provider Lars RN, Param Unavailable Unavailable Lars RN, Param Unavailable Unavailable Lars RN, Param Unavailable Unavailable COLIN PEOPLES Referring Unavailable [facility] Primary Care Unavailable INO CONTE Admitting Unavailable JONI ARANA Consulting Unavailab FLY Adhikari Attending Unavailable ELIZABETH TYLER Referring Unavailable RANCALUMET[facility] Primary Care Unavailable TORITO MAHAJAN Referring Unavailable [facility] Primary Care Unavailable SUNI BROWN Referring Unavailable [facility]NEY[facility] Primary Care Unavailable TARI BRIGGS Consulting Unavailable KEMAR ADAMES Admitting Unavailable SAVITA DENISE Attending Unavailable TORITO MAHAJAN Referring Unavailable [facility]NEY[facility] Primary Care Unavailable MADELINE MONTALVO Attending Unavailable MADELINE MONTALVO Referring Unavailable [facility] Primary Care Unavailable ELIESER SOLIS Attending Unavailable ELIESER SOLIS Referring Unavailable TAI, [facility] Primary Care Unavailable Bird Lujan MD B Primary Care Provider Dr. Bird Lujan MD Primary Care Provider Tai DAIGLE, Dr. Pang Referring Provider [phone] Mitchell STORE ASSISTANT-C, Brenda Attending Provider Susan STORE ASSISTANT-C, Jeanna Attending Provider Susan STORE ASSISTANT-C, Jeanna Referring Provider Bradley ANDERSON, Dr. Harrison Attending Provider Bradley ANDERSON, Dr. Harrison Referring Provider Dottie DAIGLE, Dr. Ballesteros Attending Provider Provider, Ed Physician Attending Provider Catina acuna Provider, Ed Physician Emergency Provider Catina Parisi DO, Dr. Anderson Attending Provider Isak ANDERSON, Dr. Anderson Emergency Provider [facility] STORE ASSISTANT-C, Mynor Barbosa Attending Provider Kayleigh Farnsworth Attending [...] DAIGLE, Dr. Jimmy Walton Other Provider [phone] Vargas DAIGLE, Dr. Garcia Other Provider [phone] Frannie DAIGLE, Dr. Dorado Other Provider Lauren DAIGLE, Dr. Stone Other Provider Choco DAIGLE, Dr. Burdick Other Provider Jeet DAIGLE, Dr. Jameson Other Provider [phone] Guilherme DAIGLE, Dr. Motta Other Provider Prema DAIGLE, Dr. Cadet Other Provider Lorenzo DAIGLE, Dr. Kim Other Provider Unavailabl mari Franco MD, Dr. Turner Other Provider [phone] Marquez DAIGLE, Dr. Awad Other Provider Yahir DAIGLE, Dr. Langston Other Provider [phone] Peter DAIGLE, Dr. Wang Other Provider Altagracia ANDERSON, Dr. Holguin Other Provider Adrienne DAIGLE, Dr. Michael Other Provider [phone] Shamika DAIGLE, Dr. Marcano Other Provider [phone] John Dash DO Other Provider Joaquin DAIGLE, Dr. Lemus Other Provider Donny DAIGLE, Dr. Champagne Other Provider Pradeep DAIGLE, Dr. Cutler Referring Provider Dr. Terrance Alva DO Attending Provider Dottie DAIGLE, Dr. Ballesteros Attending Provider [phone] Dr. Christy Huerta DO Referring Provider [phone] Tai DAIGLE, Dr. Pang Primary Care Provider Tai DAIGLE, Dr. Pang Referring Provider [phone] Susan STORE ASSISTANT-C, Jeanna Attending Provider Davis STORE ASSISTANT-C, Jeanna Referring Provider Mitchell STORE ASSISTANT-C, Brenda Attending Provider Dottie DAIGLE, Dr. Ballesteros Attending Provider Bradley ANDERSON, Dr. Harrison Attending Provider Bradley ANDERSON, Dr. Harrison Referring Provider Tai DAIGLE, Dr. Pang Primary Care Provider Susan STORE ASSISTANT-C, Jeanna Attending Provider Susan STORE ASSISTANT-C, Jeanna Referring Provider Tai DAIGLE, Dr. Pang Referring Provider Kayleigh Farnsworth Attending Provider Mitchell STORE ASSISTANT-C, Brenda Attending Provider Dr. Christy Huerta DO Attending Provider Bradley ANDERSON, Dr. Harrison Referring Provider Kumar DAIGLE, Dr. Vaz Attending Provider Dr. Milind Heath MD Emergency Provider Isak ANDERSON, Dr. Anderson Emergency Provider Brenda Medrano Referring Unavailable Brenda Medrano Attending Unavailable Ranney, Christopher Primary Care Unavailable Bradley, Christy Referring Unavailable Christy Huerta Attending Unavailable Ranney, Christopher Primary Care Unavailable Ranney, Christopher Primary Care Unavailable Payne, Kayleigh Attending Unavailable Payne, Kayleigh Referring Unavailable Ranney, Christopher Primary Care Unavailable Bradley, Christy Consulting Unavailable Micaela, Alex Admitting Unavailable Pradeep, He Attending Unavailable Hinojosa, Alex Consulting Unavailable Pradeep, He Consulting Unavailable Ranney, Christopher Primary Care Unavailable [place], Favian Referring Unavailable Favian Sinclair Attending Unavailable Susan STORE ASSISTANT, Jeanna Attending Unavailable Davis STORE ASSISTANT, Jeanna Referring Unavailable Ranney, Christopher Primary Care Unavailable Christy Huerta Attending Unavailable Ranney, Christopher Primary Care Unavailable Favian Nicholas Attending Unavailable Lani Samaniego Admitting Unavailable Lani Samaniego Consulting [facility]available [facility] Unavailable Marshal Jacobo Consulting Unavailable Leon Cao Consulting Unavailable Mario [...] Kaye Consulting Unavailable Frannie, Estrada Consulting Unavailable Habtegebriel, Bertha Consulting Unavailab le Dand, Gennaro Consulting Unavailable Trino Marcano Consulting Unavailable Chichi Lloyd Consulting Unavailable Aljundi, Bluia Consulting Unavailable Marquez, Ritesh Consulting Unavailable Irukulla, Kian Consulting Unavailable Peter, Felipe Consulting Unavailable Fernanda Deleon Consulting Unavailable Allan Nuñez Consulting Unavailable Ihsan Hines Consulting Unavailable Christy Huerta Consulting Unavailable Bird Lujan Primary Care Unavailable Christy Huerta Referring Unavailable Christy Huerta Attending Unavailable Eladio Valdez Consulting Unavailable Lizarraga, Casey Consulting Unavailable Rios Cordova Consulting Unavailable Terrance Alva Consulting Unavailable Jimmy Almeida Consulting Unavailable Jose Kaye Consulting Unavailable Frannie, Estrada Consulting Unavailable Habtegebriel, Bertha Consulting Unavailab le Dand, Gennaro Consulting Unavailable Marcano, Trino Consulting Unavailable Kalia Vanegas Consulting Unavailable Chichi Lloyd Consulting Unavailable Aljundi, Lamia Consulting Unavailable Franco, Yue Consulting Unavailable Marquez, Ritesh Consulting Unavailable Irukulla, Kian Consulting Unavailable Peter, Felipe Consulting Unavailable Kelby Friasdeep Consulting Unavailable Fernanda Deleon Consulting Unavailable Krys Wick Consulting Unavailable John Dash Consulting Unavailable Joaquin, Allan Consulting Unavailable Ihsan Hines Consulting [facility]available [facility] Unavailable Alex Hinojosa Attending Unavailable Favian Nicholas Attending Unavailable Lani Samaniego Consulting Unavailable Lani Samaniego Admitting Unavailable [facility] Care Unavailable DonnellDonnie chadwicks Consulting Unavailable Leon Cao Consulting Unavailable AdeMario roberson Consulting Unavailable Hinducosme Janet Consulting Unavailable Jamey Kayleigh Consulting Unavailable Shwetha Liliana Consulting Unavailable Calvin, Eduardo Consulting Unavailable BrianStephanie benjamin Consulting Unavailable James Mendiola Consulting Unavailable Kalia [...] Kathleen Consulting Unavailable Bertha Aguilar Consulting Unavailab Gennaro Byrnes Consulting Unavailable Trino Marcano Consulting Unavailable Chichi Lloyd Consulting Unavailable Julio Ventura Consulting Unavailable Marquez, Ritesh Consulting Unavailable Kian Sinclair Consulting Unavailable Felipe Green Consulting Unavailable Fernanda Deleon Consulting Unavailable Joaquin, Allan Consulting Unavailable Ihsan Hines Consulting Unavailable Christy Huerta Consulting Unavailable Favian Nicholas Consulting [facility] Unavailable Milind Heath Attending Unavailable Provider, Ed Physician Attending Unavailab zan [facility] Primary Care Unavailable [facility] Primary Care Unavailable Justin Parisi Attending Unavailquinn [facility] Care Unavailable Justin Parisi Attending Unavailquinn [facility] Primary Care Unavailable Susan STORE ASSISTANT, Jeanna Attending Unavailable Susan STORE ASSISTANT, Jeanna Referring Unavailable Baldo Tripp Attending Unavailable White, Lani L Attending Unavailable Ranney, Christopher Primary Care Unavailable Bradley, Christy Consulting Unavailable Hinojosa, Alex Admitting Unavailable Pradeep, He Attending Unavailable Hinojosa, Alex Consulting Unavailable Ranney, Christopher Primary Care Unavailable Bradley, Christy Referring Unavailable Dottie, Favian Attending Unavailable Ranney, Christopher Primary Care Unavailable Bradley, Christy Attending Unavailable Bradley, Christy Referring Unavailable Ranney, Christopher Referring Unavailable Brenda Medrano Attending Unavailable Ranney, Christopher Primary Care Unavailable Ranney, Christopher Referring Unavailable Viraj No Attending Unavailable Ranney, Christopher Primary Care Unavailable Ranney, Christopher Primary Care Unavailable Ranney, Christopher Referring Unavailable Brenda Medrano Attending Unavailable Ranney, Christopher Referring Unavailable Ranney, Christopher Primary Care Unavailable Kayleigh Payne Attending Unavailable Ranney, Christopher Primary Care Unavailable Ranney, Christopher Referring Unavailable Mynor Anthony NP Attending Unavailable Ranney, Christopher Referring Unavailable Susan STORE ASSISTANTJeanna Attending Unavailable Ranney, Christopher Primary Care Unavailable Ranney, Christopher Primary Care Unavailable Ranney, Christopher Referring Unavailable Kayleigh Payne Attending Unavailable Terrance Alva Attending Unavailable Pradeep, He Referring Unavailable Ranney, Christopher Primary Care Unavailable Dottie, Favian Attending Unavailable Ranney, Christopher Primary Care Unavailable Brenda Medrano Attending Unavailable Saroj Lemos Attending Unavailable White, Lani L Referring Unavailable Ranney, Christopher Primary Care Unavailable Dottie, Favian Attending Unavailable Ranney, Christopher Primary Care Unavailable Ranney, Christopher Primary Care Unavailable Tee Aguirre Attending Unavailabl e Ranney, Christopher Primary Care Unavailable Ranney, Christopher Referring Unavailable Dottie, Favian Attending Unavailable Ranney, Christopher Primary Care Unavailable [place], Favian Consulting Unavailable [place], Favian Attending Unavailable Dottie, Favian Referring Unavailable Tamikoppangelo, Favian Referring Unavailable Terrance Alva Attending Unavailable Tai DAIGLE, Dr. Pang Primary Care Provider Dr. Bird Lujan MD Referring Provider Kayleigh Farnsworth Attending Provider Dr. Justin Parisi DO Attending Provider Reshma JUÁREZ-CIrais Attending Provider Allergies Allergy Classification Reported Allergen(s) Allergy Type Date of Onset Reaction(s) Facility (3 sources) environmental [Other] Propensity to adverse reactions 9 [facility] Medications Current Medications Medication Drug Class(es) Dates Sig (Normalized) Sig (Original) amLODIPine 10 mg oral tablet (20 sources) Dihydropyridine Calcium Channel [place] Start: 11-20-2024 take 1 tablet by mouth once daily Amlodipine (Norvasc) 10 mg tablet Active 10 mg PO DAILY November 20, 2024 1:00am blood pressure Start: 05-30-2021 End: 11-18-2023 take 1 tablet by mouth once daily Amlodipine (Norvasc) 2.5 mg tablet Discontinued 2.5 mg PO DAILY 02 10June 22, 2021 2:48pm November 18, 2023 12:01pm aspirin 81 mg delayed release oral tablet (20 sources) Platelet Aggregation Inhibitor, Nonsteroidal Anti-inflammatory Drug Start: 12-31-2019 End: 08-24-2024 take 1 tablet by mouth once daily Aspirin 81 mg tablet,delayed release (DR/EC) Active 81 mg PO DAILY December 31, 2019 1:00am Sun Number Start: 11-19-2019 End: 12-31-2019 take 1 tablet by mouth once daily Aspirin 325 mg tablet Discontinued 325 mg PO DAILY November 19, 2019 1:00am December 31, 2019 11:55am Start: 03-23-2009 ASPIRIN 81 MG TAB Take one(1) tablet daily. 0 03/23/2009 Active Blood-Glucose Sensor (Dexcom G6 Sensor) device (15 sources) Start: 04-07-2025 Blood-Glucose Sensor (Dexcom G6 Sensor) device Active 0 .Route 3 April 07, 2025 4:27pm Type 1 diabetes mellitus Type 1 diabetes mellitus with diabetic chronic kidney disease Chronic kidney disease, stage 4 (severe) 1 sensor q 10 days Start: 03-02-2025 End: 04-07-2025 Blood-Glucose Sensor (Dexcom G6 Sensor) device Discontinued 0 .Route 3 March 02, 2025 12:00am April 07, 2025 4:27pm Type 1 diabetes mellitus Type 1 diabetes mellitus with diabetic chronic kidney disease Chronic kidney disease, stage 4 (severe) 1 sensor q 10 days Start: 01-10-2025 End: 01-27-2025 Blood-Glucose Sensor (Dexcom G6 Sensor) device Discontinued 0 .Route 3 January 10, 2025 9:15am January 27, 2025 9:12am 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 1 sensor q 10 days Start: 10-05-2024 End: 01-10-2025 Blood-Glucose Sensor (Dexcom G6 Sensor) device Discontinued 0 .Route 3 October 05, 2024 8:35am January 10, 2025 9:15am 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 1 sensor q 10 days Start: 05-12-2024 End: 10-05-2024 Blood-Glucose Sensor (Dexcom G6 Sensor) device Discontinued 0 .Route 3 May 12, 2024 5:15pm October 05, 2024 8:36am 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 1 sensor q 10 days Start: 12-03-2023 End: 05-12-2024 Blood-Glucose Sensor (Dexcom G6 Sensor) device Discontinued 0 .Route 3 December 03, 2023 1:00am May 12, 2024 5:15pm 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Route 6 January 27, 2025 12:00am February 09, 2025 8:21am Type 1 diabetes mellitus Type 1 diabetes mellitus with diabetic chronic kidney disease Chronic kidney disease, stage 4 (severe) 1 sensor q 15 days Blood-Glucose Transmitter (Dexcom G6 Transmitter) device (13 sources) Start: 04-07-2025 Blood-Glucose Transmitter (Dexcom G6 Transmitter) device Active 0 .Route 1 April 07, 2025 4:27pm Type 1 diabetes mellitus Type 1 diabetes mellitus with diabetic chronic kidney disease Chronic kidney disease, stage 4 (severe) 1 transmitter q 90 days Start: 03-02-2025 End: 04-07-2025 Blood-Glucose Transmitter (D excom G6 Transmitter) device Discontinued 0 .Route 1 March 02, 2025 12:00am April 07, 2025 4:27pm Type 1 diabetes mellitus Type 1 diabetes mellitus with diabetic chronic kidney disease Chronic kidney disease, stage 4 (severe) 1 transmitter q 90 days Start: 11-15-2024 End: 01-27-2025 Blood-Glucose Transmitter (D excom G6 Transmitter) device Discontinued 0 .Route 2 November 15, 2024 1:58pm January 27, 2025 9:12am 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 1 transmitter q 90 days Start: 05-12-2024 End: 11-15-2024 Blood-Glucose Transmitter (D excom G6 Transmitter) device Discontinued 0 .Route 1 May 12, 2024 5:15pm November 15, 2024 1:58pm 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 1 transmitter q 90 days Start: 12-03-2023 End: 05-12-2024 Blood-Glucose Transmitter (D excom G6 Transmitter) device Discontinued 0 .Route 1 December 03, 2023 1:00am May 12, 2024 5:15pm 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 1 transmitter q 90 days Start: 12-03-2023 Blood-Glucose Transmitter (Dexcom G6 Transmitter) device Active 0 .Route 1 December 03, 2023 1:00am 1 transmitter q 90 days 120 actuat budesonide 0.16 mg/actuat / formoterol fumarate 0.0048 mg/actuat / glycopyrrolate 0.009 mg/actuat metered dose inhaler (17 sources) Corticosteroid, beta2-Adrenergic Agonist Start: 07-20-2024 [facility] Aerosph ere 160-9-4.8 MCG/ACT aerosol 07/20/2024 Active Start: 07-20-2024 End: 10-07-2024 Igjxuzdkfq-Szlferos-Bezxuono ol (Breztri Aerosphere) 160-9-4.8 mcg/actuation HFA aerosol inhaler Discontinued 2 NMA INHALATION TWICE A DAY 10.7 6 July 20, 2024 12:00am October 07, 2024 2:46pm Start: 07-20-2024 End: 10-07-2024 busPIRone hydrochloride 7.5 mg oral tablet (20 sources) Start: 12-14-2024 take 1 tablet by mouth once daily Buspirone 7.5 mg tablet Active 7.5 mg PO DAILY December 14, 2024 1:00am Antianxiety Start: 08-12-2024 End: 08-24-2024 Start: 08-02-2024 End: 08-10-2024 Start: 04-15-2024 End: 12-14-2024 take 1 tablet by mouth twice daily Buspirone 7.5 mg tablet Discontinued 7.5 mg PO TWICE A DAY 60 30 0 April 15, 2024 12:00am December 14, 2024 2:12pm Calcium Carbonate / vitamin D3 (3 sources) CALCIUM CARBONATE/VITAMIN D3 (CALCIUM + D ORAL) Take by mouth three times daily. Active cefdinir 300 mg oral capsule (20 sources) Cephalosporin Antibacterial Start: 01-07-20 take 1 capsule by mouth twice daily Cefdinir 300 mg capsule Active 300 mg PO TWICE A DAY 10 5 0 January 06, 2025 1:00am Start: 06-23-2018 End: 07-30-2018 take 1 capsule by mouth every twelve hours Cefdinir 300 MG capsule Discontinued 300 mg PO Q12H 14 June 23, 2018 12:00am July 30, 2018 12:55pm Chronic obstructive pulmonary disease with (acute) exacerbation Pneumonia, unspecified organism Pneumonia, COPD exac cholecalciferol 0.025 mg donna wable tablet (12 sources) Vitamin D Cholecalciferol ([facility] Vitamin D3) 25 MCG (1000 UT) chewable tablet Chew. Active [facility] VITAMIN D3 1 000 UNIT CHEW Weekly CHOLECALCIFEROL [id number] Alyssia Ibanez RN RN Continuous Glucose Sensor (Dexcom G6 Sensor) [facility] (6 sources) Start: 07-22-2024 Continuous Glucose Sensor (Dexcom G6 Sensor) [facility] [place] 07/22/2024 Active Continuous Glucose Transmitter (Dexcom G6 transmitter) [facility] [place] (6 sources) Start: 07-25-2024 Continuous Glucose Transmitter (Dexcom G6 transmitter) [facility] [place] 07/25/2024 Active 1 ml denosumab 60 mg/ml prefilled syringe (20 sources) RANK Ligand Inhibitor Start: 05-26-2024 End: 06-10-2024 Denosumab (Prolia) 60 mg/mL syringe Active 60 mg SC every 6 months 1 June 10, 2024 9:41am Osteoporosis Age-related osteoporosis without current pathological fracture bone health dicyclomine hydrochloride 10 mg oral capsule (3 [...] mouth once daily. Active Flash Glucose Scanning [place] (Freestyle Eileen 2 [place]) [facility] [place] (20 sources) Start: 11-20-2020 Flash Glucose Scanning [place] (Freestyle Eileen 2 [place]) [facility] Active 0 .ROUTE .MEDSUPPLY November 20, 2020 10:12am As directed Start: 11-20-2020 End: 01-27-2025 Flash Glucose Scanning [place] (Freestyle Eileen 2 [place]) [facility] [place] Discontinued 0 .ROUTE .MEDSUPPLY 1 November 20, 2020 1:00am January 27, 2025 8:47am As directed Start: 11-20-2020 Flash Glucose Scanning [place] (Freestyle Eileen 2 [place]) [facility] Active 0 .ROUTE .MEDSUPPLY November 20, 2020 12:00am As directed Start: 11-20-2020 Flash Glucose Scanning [place] (Freestyle Eileen 2 [place]) [facility] Active 0 .ROUTE .MEDSUPPLY November 20, 2020 1:00am As directed fluticasone propionate 0.05 mg/actuat metered dose nasal spray (16 sources) Corticosteroid Start: 08-07-2024 End: 08-10-2025 take 2 spray(s) nasal route once daily fluticasone (Flonase) 50 MCG/ACT nasal spray Administer 2 sprays into each nostril daily. Shake gently. Before first use, prime pump. After use, clean tip and replace cap. 08/10/2024 08/10/2025 Active Fluticasone-Umeclid in-Vilanter (20 sources) Start: 05-18-2025 Fluticasone-Um ecli din-Vilanter (Trelegy Ellipta) 200-62.5-25 mcg blister with device Active 1 NMA INHALATION DAILY 3 3 May 18, 2025 9:21am Chronic respiratory failure with hypoxia Chronic respiratory failure with hypoxia breathing Start: 05-18-2025 End: 05-18-2025 Ieitdgboeos-Stqdvjiga-Ulpqpa er (Trelegy Ellipta) 200-62.5-25 mcg blister with device Discontinued 1 NMA INHALATION DAILY 3 May 18, 2025 8:59am May 18, 2025 9:22am breathing Start: 12-30-2024 End: 05-18-2025 Qecqmgrtmde-Ecpkqtxea-Mmhcsh er (Trelegy Ellipta) 200-62.5-25 mcg blister with device Discontinued 1 NMA INHALATION DAILY 3 December 30, 2024 12:58pm May 18, 2025 8:59am breathing Start: 12-30-2024 Fluticasone-Um eclidin-Vilanter (Trelegy Ellipta) 200-62.5-25 mcg blister with device Active 1 NMA INHALATION DAILY 3 December 30, 2024 12:58pm breathing Start: 12-30-2024 Start: 10-13-2024 End: 12-30-2024 Ovtjhhfwqys-Erntafszu-Byfhip er (Trelegy Ellipta) 200-62.5-25 mcg blister with device Discontinued 1 NMA INHALATION DAILY 3 October 13, 2024 1:00am December 30, 2024 12:58pm Start: 10-13-2024 End: 12-30-2024 Start: 10-29-2023 End: 07-20-2024 Ajcozlrlxqe-Uitqylpqv-Wvnccn er (Trelegy Ellipta) 200-62.5-25 mcg blister with device Discontinued 1 NMA INHALATION DAILY 3 October 29, 2023 4:13pm July 20, 2024 11:35am Chronic obstructive pulmonary disease Chronic obstructive pulmonary disease, unspecified Start: 10-29-2023 End: 07-20-2024 Start: 10-29-2023 Fluticasone-Um eclidin-Vilanter (Trelegy Ellipta) 200-62.5-25 mcg blister with device Active 1 INH INHALATION DAILY October 29, 2023 4:13pm Start: 10-29-2023 Fluticasone-Um eclidin-Vilanter (Trelegy Ellipta) 200-62.5-25 mcg blister with device Active 1 INH INHALATION DAILY October 29, 2023 3:13pm Start: 10-01-2023 End: 10-29-2023 Jxyjsdrpqvi-Bfkxalvao-Yngxuf er (Trelegy Ellipta) 200-62.5-25 mcg blister with device Discontinued 1 NMA INHALATION DAILY 3 October 01, 2023 3:45pm October 29, 2023 4:14pm Start: 10-01-2023 End: 10-29-2023 Start: 10-01-2023 End: 10-29-2023 Kemcmtaqwmh-Udjljrbtq-Lkkgsg er (Trelegy Ellipta) 200-62.5-25 mcg blister with device Discontinued 1 INH INHALATION DAILY October 01, 2023 3:45pm October 29, 2023 4:14pm Start: 10-01-2023 End: 10-29-2023 Kxwqieqtjob-Ssfnhqyhg-Rpxntd er (Trelegy Ellipta) 200-62.5-25 mcg blister with device Discontinued 1 INH INHALATION DAILY October 01, 2023 2:45pm October 29, 2023 3:14pm Start: 10-01-2023 Fluticasone-Um eclidin-Vilanter (Trelegy Ellipta) 200-62.5-25 mcg blister with device Active 1 INH INHALATION DAILY October 01, 2023 2:45pm Start: 06-25-2023 End: 10-01-2023 Rmcyqmznfrq-Suubkpmta-Dvdvll er (Trelegy Ellipta) 200-62.5-25 mcg blister with device Discontinued 1 NMA INHALATION DAILY 60 June 25, 2023 12:00am October 01, 2023 3:46pm Start: 06-25-2023 End: 10-01-2023 Start: 06-25-2023 End: 10-01-2023 Cruuijkxxob-Zlpfsbkdd-Ehlyhm er (Trelegy Ellipta) 200-62.5-25 mcg blister with device Discontinued 1 INH INHALATION DAILY 60 June 25, 2023 12:00am October 01, 2023 3:46pm Start: 06-25-2023 End: 10-01-2023 Gnmvlqjqqug-Jnyyfvzrt-Hvzyof er (Trelegy Ellipta) 200-62.5-25 mcg blister with device Discontinued 1 INH INHALATION DAILY 60 June 24, 2023 11:00pm October 01, 2023 2:46pm 12 hr guaiFENesin 600 mg / pseudoephedrine hydrochloride 60 mg extended release oral tablet (7 sources) alpha-Adrenergic Agonist Start: 01-06-2025 take 1 tablet by mouth every twelve hours Pseudoephedrine-Guaifenesin (Mucinex D) 60-600 mg tablet extended release 12 hr Active 1 {tbl} PO TWICE A DAY 14 January 06, 2025 1:00am cold symptoms Start: 01-06-2025 Insulin Disposable Pump (Omnipod 5 [id number] Intro Gen 5) kit (3 sources) Start: 12-03-2023 Insulin Disposable Pump (Omnipod 5 [id number] Intro Gen 5) kit 12/03/2023 Active Insulin Disposable Pump (Omnipod 5 [id number] Pods Gen 5) misc (3 sources) Start: 07-15-2024 Insulin Disposable Pump (Omnipod 5 [id number] Pods Gen 5) misc 07/15/2024 Active insulin glargine 100 unt/ml injectable solution (20 sources) Insulin Analogue Start: 07-26-2024 End: 08-24-2024 inject 3 [IU] by subcutaneous injection once daily insulin glargine (Lantus) 100 UNIT/ML injection Inject 3 Units under the skin Nightly. 08/10/2024 Active Start: 10-29-2023 End: 04-14-2024 Insulin Glargine (Lantus Vanessa ostar U-100 Insulin) 100 unit/mL (3 mL) insulin pen Discontinued 10 U SC EVERY MORNING October 29, 2023 3:47pm April 14, 2024 11:14am Type 1 diabetes mellitus Start: 01-01-2023 End: 10-29-2023 Insulin Glargine (Lantus Vanessa ostar U-100 Insulin) 100 unit/mL (3 mL) insulin pen Discontinued 15 U SC EVERY MORNING 15 August 27, 2023 3:27pm October 29, 2023 3:48pm Type 1 diabetes mellitus Start: 02-08-2021 End: 01-01-2023 Insulin Glargine 100 unit/mL (3 mL) insulin pen Discontinued 12 U SC DAILY 15 2 June 28, 2021 8:35am January 01, 2023 2:43pm Start: 08-29-2020 End: 04-14-2024 Insulin Glargine 100 UNITS/M L insulin pen Discontinued 10 U SC DAILY 1 0 August 29, 2020 12:00am February 08, 2021 9:01am Start: 08-29-2020 End: 02-08-2021 Insulin Glargine Discontinue d 10 UNITS SC DAILY August 29, 2020 12:00am February 08, 2021 9:01am Start: 01-16-2018 End: 01-26-2018 Insulin Glargine 100 UNITS/M L insulin pen Discontinued 8 U SC WITH BREAKFAST 0 0 January 16, 2018 9:21am January 26, 2018 1:51pm Hold if morning blood sugar is less than 130 mg percent Start: 01-16-2018 End: 01-26-2018 Insulin Glargine Discontinue d 8 UNIT SC WITH BREAKFAST 0 January 16, 2018 9:21am January 26, 2018 1:51pm Hold if morning blood sugar is less than 130 mg percent Start: 01-08-2017 take 21 [IU] by subc utaneous injection once at bedtime LANTUS 100 UNIT/ML SOLN 21 units sq q hs INSULIN GLARGINE [id number] Alyssia Ibanez RN RN Start: 01-21-2015 End: 01-16-2018 Insulin Glargine (Lantus Vanessa ostar U-100 Insulin) 100 UNITS/ML Pen Discontinued 23 U SC AT BEDTIME January 21, 2015 12:00am January 16, 2018 9:22am Start: 01-21-2015 End: 01-26-2018 Start: 03-26-2011 inject 32 [IU] by powell bcutaneous injection at bedtime insulin glargine (LANTUS) 100 unit/mL SUBCUTANEOUS injection Inject subcutaneously. Taking 32 units at bedtime 3 Vial 4 03/26/2011 Active take 20 [IU] by subc utaneous injection once at bedtime LANTUS 100 UNIT/ML SOLN 20 units sq q hs INSULIN GLARGINE [id number] Qi Dunham [employer] TE[employer] Insulin Pump Cart,Auto,Bt,G6 /L (Omnipod 5 (G6/Eileen 2 Plus)) cartridge (4 sources) Start: 02-09-2025 Insulin Pump C art,Auto,Bt,G6/L (Omnipod 5 (G6/Eileen 2 Plus)) cartridge Active 0 .Route 30 2 February 09, 2025 8:21am Type 1 diabetes mellitus Type 1 diabetes mellitus with diabetic chronic kidney disease Chronic kidney disease, stage 4 (severe) 1 pod q 3 days, must be compatible with eileen 2 plus Start: 01-27-2025 End: 02-09-2025 Insulin Pump Cart,Auto,Bt,G6 /L (Omnipod 5 (G6/Eileen 2 Plus)) cartridge Discontinued 0 .Route 30 2 January 27, 2025 12:00am February 09, 2025 8:21am Type 1 diabetes mellitus Type 1 diabetes mellitus with diabetic chronic kidney disease Chronic kidney disease, stage 4 (severe) 1 pod q 3 days, must be compatible with eileen 2 plus Kerendia 10 MG tablet (3 sources) Start: 10-22-2023 take 1 tablet by mouth once daily Kerendia 10 MG tablet Take 1 tablet by mouth daily. 10/22/2023 Active metoprolol tartrate 50 mg oral tablet (20 sources) beta-Adrenergic Darwin Start: 08-14-2024 End: 08-24-2025 take 1 tablet by mouth twice daily metoprolol tartrate (Lopressor) 25 MG tablet Take 1 tablet (25 mg) by mouth 2 times daily. 08/24/2024 08/24/2025 Active Start: 11-19-2019 End: 11-11-2024 take 1 tablet by mouth twice daily Metoprolol Tartrate 50 mg tablet Discontinued 50 mg PO TWICE A DAY 180 May 12, 2024 12:33pm November 11, 2024 1:49pm Start: 03-15-2019 End: 09-20-2019 Metoprolol Tartrate 25 mg ta blet Discontinued 12.5 mg PO TWICE A DAY March 15, 2019 3:25pm September 20, 2019 12:46pm blood pressure Start: 03-15-2019 End: 09-20-2019 take 12.5 mg by mouth twice daily Metoprolol Tartrate Discontinued 12.5 MG PO TWICE A DAY March 15, 2019 3:25pm September 20, 2019 12:46pm Start: 06-21-2018 End: 11-19-2019 take 1 tablet by mouth twice daily Metoprolol Tartrate 25 mg tablet Discontinued 25 mg PO TWICE A DAY 180 September 20, 2019 12:46pm November 19, 2019 11:38am blood pressure nitroglycerin 0.4 mg sublingual tablet (20 sources) Nitrate Vasodilator Start: 07-15-2024 nitroglyce rin (Nitrostat) 0.4 MG SL tablet 07/15/2024 Active Start: 01-26-2019 End: 10-21-2024 Nitroglycerin 0.4 mg tablet, sublingual Discontinued 0.4 mg SL every 5 to 15 minutes as needed for chest pain 25 01October 19, 2023 10:07am October 21, 2024 8:42am until response; do not exceed 3 doses per episode Start: 01-26-2019 End: 10-21-2024 Start: 01-26-2019 End: 10-19-2023 Nitroglycerin Discontinued 0 .4 MG SL every 5 to 15 minutes April 09, 2023 2:04pm August 27, 2023 11:47am until response; do not exceed 3 doses per episode Start: 02-20-2018 End: 06-02-2018 Nitroglycerin (Nitrostat) 0. 4 mg tablet, sublingual Discontinued 0.4 mg SL every 5 to 15 minutes as needed for chest pain 25 01February 20, 2018 12:00am June 02, 2018 2:36pm until response; do not exceed 3 doses per event Start: 02-20-2018 End: 06-02-2018 Start: 02-20-2018 End: 06-02-2018 Nitroglycerin (Nitrostat) 0. 4 mg tablet, sublingual Discontinued 0.4 MG SL every 5 to 15 minutes February 20, 2018 12:00am June 02, 2018 2:36pm until response; do not exceed 3 doses per event ondansetron 4 mg disintegrating oral tablet (20 sources) Serotonin-3 Receptor Antagonist Start: 05-08-2025 take 1 tablet by mouth every eight hours as needed for nausea Ondansetron 4 mg tablet,disintegrating Active 4 mg PO EVERY 8 HOURS NEEDED as needed for Nausea 10 May 08, 2025 12:00am Start: 08-20-2016 End: 01-29-2018 take 1 tablet by mouth every eight hours as needed for nausea Ondansetron Hcl 8 MG tablet Discontinued 8 mg PO EVERY 8 HOURS NEEDED as needed for Nausea/Vomiting 15 August 20, 2016 12:00am January 29, 2018 8:59am ZOFRAN 8 MG TABS PRN ONDANSETRON HCL [id number] Alyssia Ibanez RN RN Oxygen (5 sources) Start: 12-03-2023 oxygen Active 0 NASAL .COMPLEX December 03, 2023 1:00am O2 therapy 3L NASALLY; 3 l Start: 12-03-2023 oxygen Active NASAL December 03, [...] when nauseated.). 30 tablet 1 02/14/2012 Active Roflumilast (15 sources) Phosphodiesterase 4 Inhibitor Start: 05-11-2025 take 1 tablet by mouth once daily Roflumilast (Daliresp) 500 mcg tablet Active 500 ug PO DAILY 02 10May 11, 2025 2:16pm breathing Start: 12-03-2024 End: 05-11-2025 take 1 tablet by mouth once daily Roflumilast (Daliresp) 500 mcg tablet Discontinued 500 ug PO DAILY 02 10December 03, 2024 11:21am May 11, 2025 2:17pm breathing Start: 12-03-2024 take 1 tablet by vasile th once daily Roflumilast (Daliresp) 500 mcg tablet Active 500 ug PO DAILY 02 10December 03, 2024 11:21am breathing Start: 2024 End: 12-03-2024 take 1 tablet by mouth once daily Roflumilast (Daliresp) 500 mcg tablet Discontinued 500 ug PO DAILY 02 10December 01, 2024 1:00am December 03, 2024 11:22am Start: 08-24-2024 End: 08-24-2024 take 1 tablet by mouth once daily Roflumilast (Daliresp) 500 MCG tablet Take one tablet by mouth every day 30 tablet 08/25/2024 Active sevelamer carbonate 800 mg oral tablet (7 sources) Phosphate Binder Start: 12-14-2024 take 1 tablet by mouth three times daily Sevelamer Carbonate 800 mg tablet Active 800 mg PO THREE TIMES A DAY December 14, 2024 1:00am To lower Phosphorus simvastatin 40 mg oral tablet (20 sources) HMG-CoA Reductase Inhibitor Start: 06-21-2018 take 1 tablet by mouth at bedtime Simvastatin 40 MG tablet Active 40 mg PO AT BEDTIME June 21, 2018 12:00am cholesterol Start: 02-12-2012 take 1 tablet by vasile th once daily at bedtime simvastatin (ZOCOR) 20 mg ORAL tablet Take 1 tablet by mouth daily at bedtime. 0 02/12/2012 Active take 1 tablet by vasile th once daily ZOCOR 40 MG TABS One tablet by mouth daily SIMVASTATIN [id number] Alyssia Ibanez RN RN Trelegy Ellipta 200-62.5-25 MCG/ACT aerosol powder (6 sources) Start: 05-12-2024 Trelegy Ellipt a 200-62.5-25 MCG/ACT aerosol powder 05/12/2024 Active (4 sources) Start: 07-22-2024 (4 sources) Start: 07-25-2024 (4 sources) Start: 05-12-2024 (20 sources) Start: 04-07-2025 Start: 04-07-2025 Start: 03-02-2025 End: 04-07-2025 Start: 03-02-2025 Start: 02-09-2025 Start: 02-09-2025 Start: [...] pain and fever 20 ml albumin human, skilled nursing 250 mg/ml injection (12 sources) Human Serum Albumin Start: 08-16-2024 End: 08-17-2024 Start: 08-16-2024 End: 08-16-2024 Start: 08-13-2024 End: 08-13-2024 Start: 08-05-2024 End: 08-05-2024 [id number] 200 actuat albuterol 0.09 mg/actuat metered dose inhaler (20 sources) beta2-Adrenergic Agonist Start: 06-23-2018 take 2.5 mg by inhalation every two hours as needed for dyspnea Albuterol Sulfate 2.5 MG/3 ML solution for nebulization Active 2.5 mg INHALATION EVERY 2 HOURS NEEDED as needed for dyspnea, wheezing 1 0 June 23, 2018 12:00am Start: 06-23-2018 Start: 06-21-2018 End: 03-14-2025 Albuterol Sulfate 90 mcg/act uation HFA aerosol inhaler Discontinued 2 NMA INHALATION EVERY 6 HOURS NEEDED as needed for Cough 8.5 2 December 30, 2024 12:58pm March 14, 2025 9:58am Smoking greater than 30 pack years Nicotine dependence, cigarettes, uncomplicated Start: 06-21-2018 End: 03-14-2025 Start: 06-21-2018 End: 01-26-2024 take 1 puff(s) by inhalation every six hours as needed Albuterol Sulfate Discontinued 2 PUFF INHALATION EVERY 6 HOURS NEEDED 8.5 May 13, 2022 7:28am August 19, 2022 2:18pm Start: 03-11-2015 End: 01-26-2018 Albuterol Sulfate 6.7 GM HFA aerosol inhaler Discontinued 6.7 g IH EVERY 2 HOURS NEEDED as needed for Wheezing 1 0 March 11, 2015 12:38pm January 26, 2018 1:49pm Start: 03-11-2015 End: 01-26-2018 take 6.7 g by inhalation every two hours as needed Albuterol Sulfate Discontinued 6.7 GM IH EVERY 2 HOURS NEEDED 1 March 11, 2015 11:38am January 26, 2018 12:49pm Start: 03-11-2015 End: 01-26-2018 take 6.7 g by inhalation every two hours as needed Albuterol Sulfate Discontinued 6.7 GM IH EVERY 2 HOURS NEEDED 1 March 11, 2015 12:38pm January 26, 2018 1:49pm take 2 puff(s) by mo uth every six hours for cough albuterol 108 (90 Base) MCG/ACT inhaler inhale 2 puffs by mouth and INTO THE LUNGS every 6 hours if needed for cough Active PROAIR HFA 108 ( 90 Base) MCG/ACT AERS PRN ALBUTEROL SULFATE [id number] Alyssia Ibanez RN RN albuterol 0.833 mg/ml / ipratropium bromide 0.167 mg/ml inhalation solution (20 sources) Anticholinergic, beta2-Adrenergic Agonist Start: 08-20-2024 End: 08-24-2024 Start: 08-12-2024 End: 08-19-2024 Start: 08-07-2024 End: 08-10-2024 Start: 07-26-2024 End: 08-02-2024 Start: 10-29-2023 End: 12-29-2023 take 1 mL by inhalation every four hours as needed for wheezing Ipratropium-Albuterol 0.5 mg-3 mg(2.5 mg base)/3 mL solution for nebulization Active 3 mL INHALATION EVERY 4 HOURS NEEDED as needed for SOB &/OR WHEEZING 180 December 29, 2023 3:48pm Chronic obstructive pulmonary disease Chronic obstructive pulmonary disease, unspecified Start: 10-29-2023 End: 12-29-2023 Start: 10-29-2023 End: 12-29-2023 ipratropium-albuterol (Duo-N eb) 0.5-2.5 mg/3 mL nebulizer solution inhale contents of 1 vial ( 3 MLS ) in nebulizer by mouth and INTO THE LUNGS every 4 hours 10/29/2023 Active AMOXICILLIN-POT CLAVULANATE (8 sources) Penicillin-class Antibacterial Start: 12-30-2012 End: 01-21-2013 AUGMENTIN 875-125 MG TABS bid AMOXICILLIN-POT CLAVULANATE [id number] Edie Kearney MD Start: 12-30-2012 AUGMENTIN 875- 125 MG TABS bid AMOXICILLIN-POT CLAVULANATE [id number] Edie Kearney MD take 10 mL by mouth every eight hours AUGMENTIN 250-62.5 MG/5ML SUSR 10 ml po q 8 hrs AMOXICILLIN-POT CLAVULANATE [id number] Qi Dunham LPN End: 12-30-2012 take 10 mL by mouth every eight hours AUGMENTIN 250-62.5 MG/5ML SUSR 10 ml po q 8 hrs AMOXICILLIN-POT CLAVULANATE [id number] Edie Kearney MD ASPIRIN TBEC (2 sources) take 1 tablet by mouth once daily ASPIR-81 TBEC One tablet by mouth daily ASPIRIN TBEC [id number] Qi Dunham LPN atorvastatin 20 mg oral tablet (2 sources) HMG-CoA Reductase Inhibitor Start: 08-12-20 End: 08-24-20 azithromycin 500 mg oral tablet (20 sources) Macrolide Antimicrobial Start: 06-23-20 18 End: 06-30-20 18 take 1 tablet by mouth once daily Azithromycin 500 MG tablet Discontinued 500 mg PO DAILY 1 0 June 23, 2018 12:00am June 30, 2018 9:37am Pneumonia Take dose on 06/24/18 B-Complex With Vitamin C (Super B/C) capsule (18 sources) Start: 07-04-20 End: 10-29-20 B-Complex With Vitamin C (Super B/C) capsule Discontinued 1 NMA PO DAILY July 04, 2022 12:00am October [...] Start: 07-04-2022 take 1 capsule by mo uth once daily B-Complex With Vitamin C (Super B/C) capsule Active 1 CAP PO DAILY July 04, 2022 12:00am budesonide 0.5 mg/ml inhalation suspension (2 sources) Corticosteroid Start: 08-20-2024 End: 08-24-2024 buPROPion hydrochloride 75 mg oral tablet (20 sources) Aminoketone Start: 08-08-2022 End: 07-14-2023 take 1 tablet by mouth once daily Bupropion Hcl 75 mg tablet Discontinued 75 mg PO DAILY 90 August 08, 2022 12:00am July 14, 2023 11:29am Tobacco abuse Tobacco use Start: 02-07-2022 End: 08-08-2022 take 1 tablet by mouth once daily in the morning Bupropion Hcl 150 mg tablet extended release 24 hr Discontinued 150 mg PO EVERY MORNING February 07, 2022 12:00am August 08, 2022 7:53am Tobacco abuse Tobacco use Start: 01-10-2022 End: 02-07-2022 take 1 tablet by mouth once daily Bupropion Hcl 75 mg tablet Discontinued 75 mg PO DAILY 30 0 January 10, 2022 1:00am February 07, 2022 1:21pm Tobacco abuse Tobacco use Start: 09-20-2020 End: 06-27-2021 take 1 tablet by mouth twice daily, then take 1 tablet by mouth every twelve hours Bupropion Hcl (Smoking Deter) 150 mg tablet extended release 12 hr Discontinued 150 mg PO TWICE A DAY 60 1 September 20, 2020 1:00am June 27, 2021 12:52pm Nicotine dependence, cigarettes, uncomplicated Start: 09-12-2020 End: 09-20-2020 take 1 tablet by mouth once daily in the morning Bupropion Hcl 150 mg tablet extended release 24 hr Discontinued 150 mg PO EVERY MORNING September 12, 2020 1:00am September 20, 2020 10:23am calcium carbonate 1500 mg oral tablet (19 sources) Start: 04-09-2023 End: 10-29-2023 take 1 tablet by mouth twice daily Calcium Carbonate (Calcium 600) 600 mg calcium (1,500 mg) tablet Discontinued 600 mg PO TWICE A DAY April 09, 2023 12:00am October 29, 2023 3:46pm calcium chloride 0.0014 meq/ml / potassium chloride 0.004 meq/ml / sodium [...] SUSR 500mg po q 12 hrs CIPROFLOXACIN [id number] Qi Dunham [employer] clopidogrel 75 mg oral tablet (20 sources) [id number] Platelet Inhibitor Start: 06-21-2018 End: 08-24-2024 take 1 tablet by mouth once daily Clopidogrel 75 mg tablet Discontinued 75 mg PO DAILY 90 August 26, 2023 4:33pm July 26, 2024 8:28am Start: 01-16-2018 End: 02-05-2018 take 1 tablet by mouth once daily Clopidogrel 75 MG tablet Discontinued 75 mg PO DAILY January 16, 2018 12:00am February 05, 2018 9:31am 1 ml dexamethasone phosphate 4 mg/ml injection (20 sources) Corticosteroid Start: 07-26-2024 End: 08-04-2024 Start: 08-15-2022 End: 10-29-2023 take 1 tablet by mouth once daily Dexamethasone 6 mg tablet Discontinued 6 mg PO DAILY August 15, 2022 12:00am October 29, 2023 3:46pm 100 ml dexmedetomidine 0.004 mg/ml injection (4 sources) Central alpha-2 Adrenergic Agonist Start: 08-12-2024 End: 08-13-2024 Start: 07-30-2024 End: 07-30-2024 docusate sodium 100 mg oral tablet (4 sources) End: 01-08-2017 take 1 tablet by mouth twice daily as needed COLACE 100 MG CAPS One tablet by mouth twice daily prn DOCUSATE SODIUM [id number] Alyssia Ibanez RN RN docusate sodium 50 mg / sennosides, skilled nursing 8.6 mg oral tablet (2 sources) Start: 08-17-2024 End: 08-24-2024 doxycycline hyclate 100 mg oral tablet (20 sources) Tetracycline- class Drug Start: 06-27-2021 End: 02-21-2022 take 1 tablet by mouth twice daily Doxycycline Hyclate 100 mg tablet Discontinued 100 mg PO TWICE A DAY June 27, 2021 12:00am February 21, 2022 1:09pm Start: 01-21-2013 End: 01-31-2013 take 1 tablet by mouth every twelve hours DOXYCYCLINE HYCLATE 100 MG TABS 100 mg po every 12 hrs x 10 d DOXYCYCLINE HYCLATE [id number] Edie Kearney MD ergocalciferol 1.25 mg oral capsule (20 sources) Provitamin D2 Compound Start: 06-21-2018 End: 07-14-2023 Ergocalciferol (Vitamin D2) 50,000 UNIT capsule Discontinued 41937 U PO Q7D June 21, 2018 12:00am July 14, 2023 10:56am supplement escitalopram 20 mg oral tablet (20 sources) Serotonin Reuptake Inhibitor Start: 06-21-2018 End: 11-19-2019 take 1 tablet by mouth once daily Escitalopram Oxalate 20 MG tablet Discontinued 20 mg PO DAILY June 21, 2018 12:00am November 19, 2019 10:52am depression take 1 tablet by mouth once alejandra y ESCITALOPRAM OXALATE 10 MG TABS One tablet by mouth daily ESCITALOPRAM OXALATE [id number] Alyssia Ibanez RN RN ferrous sulfate 325 mg oral tablet (20 sources) Start: 06-21-2018 End: 11-19-2019 take 1 tablet by mouth once daily Ferrous Sulfate 325 MG tablet Discontinued 325 mg PO DAILY@0800 June 21, 2018 12:00am November 19, 2019 10:52am anemia Finerenone (20 sources) Start: 04-09-2023 End: 02-05-2024 take 1 tablet by mouth once daily Finerenone (Kerendia) 10 mg tablet Discontinued 10 mg PO DAILY April 09, 2023 12:00am February 05, 2024 11:13am Start: 04-09-2023 End: 02-05-2024 Start: 04-09-2023 End: [...] 09, 2023 12:00am Start: 03-06-2023 End: 04-09-2023 take 1 tablet by mouth once daily Finerenone (Kerendia) 10 mg tablet Discontinued 10 mg PO DAILY March 06, 2023 12:00am April 09, 2023 2:34pm Start: 03-06-2023 End: 04-09-2023 Start: 03-06-2023 End: 04-09-2023 take 1 tablet by mouth once daily Finerenone (Kerendia) 10 mg tablet Discontinued 10 MG PO DAILY March 05, 2023 11:00pm April 09, 2023 1:34pm Start: 03-06-2023 End: 04-09-2023 take 1 tablet by mouth once daily Finerenone (Kerendia) 10 mg tablet Discontinued 10 MG PO DAILY March 06, 2023 12:00am April 09, 2023 2:34pm Flash Glucose Sensor (Freest yle Eileen 2 Sensor) kit (20 sources) Start: 08-27-2023 End: 01-27-2025 Flash Glucose Sensor (Freest yle Eileen 2 Sensor) kit Discontinued 0 .ROUTE .MEDSUPPLY 6 August 27, 2023 3:27pm January 27, 2025 8:47am Type 1 diabetes mellitus 1 sensor q 14 days Start: 08-27-2023 [...] 2 Sensor) kit Discontinued 0 .ROUTE .MEDSUPPLY 6 March 26, 2023 1:38pm August 27, 2023 3:27pm Type 1 diabetes mellitus As directed Start: 03-26-2023 End: 08-27-2023 Flash [...] 2 Sensor) kit Discontinued 0 .ROUTE .MEDSUPPLY 6 December 19, 2022 6:02pm March 26, 2023 1:38pm Type 1 diabetes mellitus As directed Start: 12-19-2022 End: 03-26-2023 Flash [...] 2 Sensor) kit Discontinued 0 .ROUTE .MEDSUPPLY 6 July 04, 2022 11:11am December 19, 2022 6:02pm Type 1 diabetes mellitus As directed Start: 07-04-2022 End: 12-19-2022 Flash [...] 2 Sensor) kit Active 0 .ROUTE .MEDSUPPLY 6 July 04, 2022 10:11am As directed Start: 07-04-2022 Flash Glucose Sensor (Freestyle Eileen 2 Sensor) kit Active 0 .ROUTE .MEDSUPPLY 6 July 04, 2022 11:11am As directed Start: [...] Sensor) kit Discontinued 0 .ROUTE .MEDSUPPLY 2 8 July 19, 2021 1:00pm April 03, 2022 9:32am As directed Start: 07-19-2021 End: 04-03-2022 Flash [...] 1:00am July 19, 2021 1:00pm As directed Start: 11-20-2020 End: 07-19-2021 Flash Glucose Sensor (Freest yle Eileen 2 Sensor) kit Discontinued 0 .ROUTE .MEDSUPPLY 2 November 20, 2020 12:00am July 19, 2021 12:00pm As directed Start: 11-20-2020 End: 07-19-2021 Flash Glucose Sensor (Freest yle Eileen 2 Sensor) kit Discontinued 0 .ROUTE .MEDSUPPLY 2 November 20, 2020 1:00am July 19, 2021 1:00pm As directed Mszuuwjyvay-Fvrvkijvy-Vbqzav er (20 sources) Anticholinergic, Corticosteroid, beta2-Adrenergic Agonist Start: 02-17-2023 End: 06-25-2023 Qjhxobfikpo-Cbbiostzw-Hnceyy er (Trelegy Ellipta) 100-62.5-25 mcg blister with device Discontinued 1 NMA INHALATION daily 60 February 17, 2023 9:13am June 25, 2023 8:59am Chronic obstructive pulmonary disease, unspecified administer at approximately the same time(s) each day Start: 02-17-2023 End: 06-25-2023 Start: 02-17-2023 End: 06-25-2023 Mnglztydhns-Qpicqdmfk-Pcgtqw er (Trelegy Ellipta) 100-62.5-25 mcg blister with device Discontinued 1 INH INHALATION daily February 17, 2023 9:13am June 25, 2023 8:59am administer at approximately the same time(s) each day Start: 02-17-2023 End: 06-25-2023 Odzrfyccver-Qcenbutur-Uujrvs er (Trelegy Ellipta) 100-62.5-25 mcg blister with device Discontinued 1 INH INHALATION daily 60 February 17, 2023 8:13am June 25, 2023 7:59am administer at approximately the same time(s) each day Start: 02-17-2023 Fluticasone-Um eclidin-Vilanter (Trelegy Ellipta) 100-62.5-25 mcg blister with device Active 1 INH INHALATION daily 60 February 17, 2023 9:13am administer at approximately the same time(s) each day Start: 02-21-2022 End: 02-17-2023 Djkedpmpljo-Sednpewps-Zwlfml er (Trelegy Ellipta) 100-62.5-25 mcg blister with device Discontinued 1 NMA INHALATION daily 60 February 21, 2022 1:21pm February 17, 2023 9:13am Chronic obstructive pulmonary disease, unspecified administer at approximately the same time(s) each day Start: 02-21-2022 End: 02-17-2023 Start: 02-21-2022 End: 02-17-2023 Ygrupuqdbcj-Uqohokmym-Siknum er (Trelegy Ellipta) 100-62.5-25 mcg blister with device Discontinued 1 INH INHALATION daily February 21, 2022 12:21pm February 17, 2023 8:13am administer at approximately the same time(s) each day Start: 02-21-2022 End: 02-17-2023 Ittznbnhklp-Tuwsovmbu-Nshadf er (Trelegy Ellipta) 100-62.5-25 mcg blister with device Discontinued 1 INH INHALATION daily 60 February 21, 2022 1:21pm February 17, 2023 9:13am administer at approximately the same time(s) each day Start: 02-21-2022 Fluticasone-Um eclidin-Vilanter (Trelegy Ellipta) 100-62.5-25 mcg blister with device Active 1 INH INHALATION daily February 21, 2022 12:21pm administer at approximately the same time(s) each day Start: 02-21-2022 Fluticasone-Um eclidin-Vilanter (Trelegy Ellipta) 100-62.5-25 mcg blister with device Active 1 INH INHALATION daily 60 February 21, 2022 1:21pm administer at approximately the same time(s) each day Start: 01-16-2022 End: 02-21-2022 Reimbeazbpv-Okpyaqrwm-Hurlly er (Trelegy Ellipta) 100-62.5-25 mcg blister with device Discontinued 1 NMA INHALATION daily 60 0 January 16, 2022 11:47am February 21, 2022 1:22pm Chronic obstructive pulmonary disease, unspecified administer at approximately the same time(s) each day Start: 01-16-2022 End: 02-21-2022 Start: 01-16-2022 End: 02-21-2022 Oqsfaceyrvh-Gpmtbpzmk-Dxvndz er (Trelegy Ellipta) 100-62.5-25 mcg blister with device Discontinued 1 INH INHALATION daily 60 January 16, 2022 10:47am February 21, 2022 12:22pm administer at approximately the same time(s) each day Start: 01-16-2022 End: 02-21-2022 Qmtuuwelkeu-Czpcrjzkq-Suitqi er (Trelegy Ellipta) 100-62.5-25 mcg blister with device Discontinued 1 INH INHALATION daily 60 January 16, 2022 11:47am February 21, 2022 1:22pm administer at approximately the same time(s) each day Start: 01-16-2022 Fluticasone-Um eclidin-Vilanter (Trelegy Ellipta) 100-62.5-25 mcg blister with device Active 1 INH INHALATION daily 60 January 16, 2022 11:47am administer at approximately the same time(s) each day Start: 09-10-2021 End: 01-16-2022 Zxpptrasvrc-Cdirujrwv-Vlwidr er (Trelegy Ellipta) 100-62.5-25 mcg blister with device Discontinued 1 NMA INHALATION daily 60 3 September 10, 2021 2:48pm January 16, 2022 11:48am Chronic obstructive pulmonary disease, unspecified administer at approximately the same time(s) each day Start: 09-10-2021 End: 01-16-2022 Start: 09-10-2021 End: 01-16-2022 Sfdexhjkemz-Rpxfpbptt-Czumoe er (Trelegy Ellipta) 100-62.5-25 mcg blister with device Discontinued 1 INH INHALATION daily 60 September 10, 2021 1:48pm January 16, 2022 10:48am administer at approximately the same time(s) each day Start: 09-10-2021 End: 01-16-2022 Obvnivzwqii-Kuognszwo-Stmdri er (Trelegy Ellipta) 100-62.5-25 mcg blister with device Discontinued 1 INH INHALATION daily 60 September 10, 2021 2:48pm January 16, 2022 11:48am administer at approximately the same time(s) each day Start: 04-03-2021 End: 09-10-2021 Wwuesyirpjl-Hkzlieyln-Pbnvqo er (Trelegy Ellipta) 100-62.5-25 mcg blister with device Discontinued 1 NMA INHALATION daily 60 3 April 03, 2021 10:55am September 10, 2021 2:49pm Chronic obstructive pulmonary disease, unspecified administer at approximately the same time(s) each day Start: 04-03-2021 End: 09-10-2021 Start: 04-03-2021 End: 09-10-2021 Uqylfkqwhtv-Bwylihdda-Ycwaim er (Trelegy Ellipta) 100-62.5-25 mcg blister with device Discontinued 1 INH INHALATION daily 60 April 03, 2021 9:55am September 10, 2021 1:49pm administer at approximately the same time(s) each day Start: 04-03-2021 End: 09-10-2021 Imdmmswkwpu-Zvevpvhfv-Qvshob er (Trelegy Ellipta) 100-62.5-25 mcg blister with device Discontinued 1 INH INHALATION daily 60 April 03, 2021 10:55am September 10, 2021 2:49pm administer at approximately the same time(s) each day Start: 09-12-2020 End: 04-03-2021 Dufeongxgwb-Vznvgrunz-Wroizp er (Trelegy Ellipta) 100-62.5-25 mcg blister with device Discontinued 1 INH INHALATION daily 60 September 12, 2020 9:59am April 03, 2021 10:55am administer at approximately the same time(s) each day Start: 09-12-2020 End: 04-03-2021 Vjtebjydwmr-Ntdqlsyov-Idzpcs er (Trelegy Ellipta) 100-62.5-25 mcg blister with device Discontinued 1 NMA INHALATION daily 60 3 September 12, 2020 1:00am April 03, 2021 10:55am Chronic obstructive pulmonary disease, unspecified administer at approximately the same time(s) each day Start: 09-12-2020 End: 04-03-2021 Start: 09-12-2020 End: 04-03-2021 Ggyobeqhjkz-Jlbabzcon-Bzpgaj er (Trelegy Ellipta) 100-62.5-25 mcg blister with device Discontinued 1 INH INHALATION daily 60 September 12, 2020 12:00am April 03, 2021 9:55am administer at approximately the same time(s) each day Start: 09-12-2020 End: 04-03-2021 Ebfkvkbmlvu-Tgvsfxxmz-Vsqnsi er (Trelegy Ellipta) 100-62.5-25 mcg blister with [...] 08-14-2024 End: 08-15-2024 Start: 08-09-2024 End: 08-09-2024 gabapentin 800 mg oral table t (20 sources) Anti-epileptic Agent Start: 08-12-2024 End: 08-24-2024 Start: 08-04-2024 End: 08-10-2025 take 2 capsules by mouth twice daily gabapentin (Neurontin) 100 MG capsule Take 2 capsules (200 mg) by mouth 2 times daily. 08/10/2024 08/10/2025 Active Start: 02-17-2023 End: 05-18-2025 Gabapentin 800 mg tablet Discontinued 200 mg PO TWICE A DAY October 07, 2024 2:47pm May 18, 2025 8:52am neuropathy Start: 02-17-2023 End: 10-07-2024 take 1 tablet by mouth at bedtime Gabapentin 800 mg tablet Discontinued 800 mg PO AT BEDTIME February 17, 2023 12:00am October 07, 2024 2:48pm neuropathy Start: 01-10-2022 End: 04-14-2024 take 1 capsule by mouth once daily Gabapentin 400 mg capsule Discontinued 400 mg PO .once daily February 17, 2023 8:42am April 14, 2024 11:14am Start: 06-21-2018 End: 07-04-2022 take 1 capsule by mouth at bedtime Gabapentin 300 MG capsule Discontinued 300 mg PO AT BEDTIME June 21, 2018 12:00am July 04, 2022 10:44am nerve pain Start: 01-21-2015 End: 01-16-2018 take 1 capsule by mouth at bedtime Gabapentin 300 MG capsule Discontinued 300 mg PO AT BEDTIME January 21, 2015 12:00am January 16, 2018 9:20am glucagon (rdna) 1 mg injecti on (20 sources) Start: 08-12-2024 End: 08-24-2024 Start: 07-26-2024 End: 08-10-2024 Start: 06-21-2018 End: 11-19-2019 Glucagon (Human Recombinant) 1 MG kit Discontinued 1 mg IJ DAILY June 21, 2018 12:00am November 19, 2019 10:52am hypoglycemia GLUCAGON EMERGEN CY 1 MG KIT in case of hypoglycemia emergency GLUCAGON (RDNA) [id number] Alyssia Ibanez RN RN 150 ml glucose [...] Q12H 60 December 29, 2023 1:00am Start: 12-29-2023 End: 07-23-2024 take 1 tablet by mouth every twelve hours Guaifenesin 1,200 mg tablet extended release 12hr Discontinued 1200 mg PO Q12H 60 December 29, 2023 1:00am July 23, 2024 11:38pm On Hold: pt can't swallow pill Start: 02-17-2023 End: 11-18-2023 take 1 tablet by mouth every twelve hours Guaifenesin 1,200 mg tablet extended release 12hr Discontinued 1200 mg PO Q12H 60 February 17, 2023 12:00am November 18, 2023 12:01pm Start: 06-23-2018 End: 12-31-2018 take 1 tablet by mouth twice daily Guaifenesin 1,200 MG tablet Discontinued 1200 mg PO TWICE A DAY June 23, 2018 12:00am December 31, 2018 3:48pm Start: 06-23-2018 End: 12-31-2018 1 ml heparin sodium, porcine 1000 unt/ml injection (18 sources) Unfractionated Heparin, Anti-coagulant Start: 08-23-2024 End: 08-24-2024 Start: 08-16-2024 End: 08-24-2024 Start: 08-12-2024 End: 08-14-2024 Start: 08-03-2024 End: 08-10-2024 Start: 08-01-2024 End: 08-01-2024 Start: 08-01-2024 End: 08-01-2024 Start: 08-01-2024 End: 08-01-2024 Start: 08-01-2024 End: 08-01-2024 Start: 07-30-2024 End: 08-10-2024 hydrALAZINE hydrochloride 25 mg oral tablet (17 sources) Arteriolar Vasodilator Start: 12-16-2024 End: 05-18-2025 take 1 tablet by mouth three times daily Hydralazine 25 mg tablet Discontinued 25 mg PO THREE TIMES A DAY 90 3 February 08, 2025 2:20pm May 18, 2025 8:52am blood pressure Start: 07-26-2024 End: 08-04-2024 HYDROmorphone hydrochloride 4 mg oral tablet (4 sources) Opioid Agonist End: 12-16-2012 take 1 tablet by mouth every four hours as needed DILAUDID 4 MG TABS po q 4 hrs prn HYDROMORPHONE HCL [id number] Qi Dunham [employer] ibuprofen 200 mg oral tablet (8 sources) Nonsteroidal Anti-inflammatory Drug End: 12-16-2012 take 1 tablet by mouth every six hours as needed MOTRIN IB TABS 800 mg by mouth q 6 hrs prn IBUPROFEN TABS [id number] Qi [employer] End: 12-30-2012 ADVIL 200 MG CAPS q 4 hrs as needed IBUPROFEN [id number] Edie Kearney MD Insulin Basal Pump (Pt's Own ) (Pump, Basal) 1 UNIT Pump (20 sources) Start: 08-26-2020 End: 08-29-2020 Insulin Basal Pump (Pt's Own ) (Pump, Basal) 1 UNIT Pump Discontinued 0 UNIT SC DIRECTED August 26, 2020 6:35pm August 29, 2020 3:34pm Start: 08-26-2020 End: 08-29-2020 Insulin Basal Pump (Pt's Own ) (Pump, Basal) 1 UNIT Pump Discontinued 0 U SC DIRECTED August 26, 2020 12:00am August 29, 2020 3:34pm Start: 08-26-2020 End: [...] 29, 2020 3:34pm insulin detemir 100 unt/ml injectable solution (20 sources) Insulin Analogue Start: 06-21-2018 End: 11-19-2019 inject 10 [IU] by subcutaneous injection once daily Insulin Detemir U-100 100 UNIT/ML solution Discontinued 10 U SQ DAILY June 21, 2018 12:00am November 19, 2019 10:51am hyperglycemia Start: 01-26-2018 End: 01-29-2018 Insulin Detemir U-100 (Levem ir U-100 Insulin) 100 unit/mL solution Discontinued 21 U SC AT BEDTIME January 26, 2018 12:00am January 29, 2018 9:09am Start: 01-26-2018 End: 01-29-2018 Start: 01-11-2018 End: 01-26-2018 Insulin Detemir U-100 100 UN ITS/ML insulin pen Discontinued 12 U SC AT BEDTIME January 11, 2018 1:00am January 26, 2018 1:51pm Start: 01-11-2018 End: 01-26-2018 Start: 01-11-2018 End: 01-26-2018 Insulin Detemir U-100 Discon tinued 12 UNITS SC AT BEDTIME January 11, 2018 1:00am January 26, 2018 1:51pm LEVEMIR 100 UNIT /ML SOLN 21 units at bedtime INSULIN DETEMIR [id number] Alyssia Ibanez RN RN insulin isophane, human 100 unt/ml injectable suspension (4 sources) Start: 08-19-2024 End: 08-19-2024 Start: 08-13-2024 End: 08-13-2024 insulin lispro 100 unt/ml injectable solution (20 sources) Insulin Analogue Start: 12-17-2023 End: 04-07-2025 Insulin Lispro (Humalog U-100 Insulin) 100 unit/mL solution Discontinued 60 U continuous subcutaneous infusion .continuous 54 1 October 25, 2024 4:41pm January 06, 2025 12:27pm 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 via insulin pump Start: 07-04-2022 End: 12-17-2023 Insulin Lispro (Humalog Kwik pen Insulin) 100 unit/mL insulin pen Discontinued 20 U SC THREE TIMES A DAY 54 1 August 27, 2023 3:27pm December 17, 2023 4:41pm Type 1 diabetes mellitus Start: 02-12-2021 End: 07-04-2022 Insulin Lispro (Humalog Kwik pen Insulin) 100 unit/mL insulin pen Discontinued 10 U SC THREE TIMES A DAY 15 0 June 24, 2022 9:02am July 04, 2022 11:10am Start: 01-11-2018 End: 08-10-2024 Insulin Lispro 100 UNIT/ML insulin pen Discontinued 0 U SC BEFORE MEALS AND AT BEDTIME 1 0 August 29, 2020 12:00am September 04, 2021 8:52am Please contact the information source for Protocol details. Start: 02-12-2012 End: 04-07-2025 take 5 [IU] by subcu taneous injection three times daily at mealtime HUMALOG 100 UNIT/ML SOLN 5 units sq three times a day with meals INSULIN LISPRO (HUMAN) [id number] Qi [employer]ham [employer] End: 12-30-2012 take 5 [IU] by subcutaneous injection three times daily at mealtime HUMALOG 100 UNIT/ML SOLN 5 units sq three times a day with meals INSULIN LISPRO (HUMAN) [id number] Edie Kearney MD Insulin Pump Cart,Auto,Bt-Cn tr (Omnipod 5 G6 Intro Kit (Gen 5)) cartridge (5 sources) Start: 12-03-2023 End: 05-31-2024 Insulin Pump Cart,Auto,Bt-Cn tr (Omnipod 5 G6 Intro Kit (Gen 5)) cartridge Discontinued 0 .Route 1 0 December 03, 2023 1:00am May 31, 2024 8:04am 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 Start: 12-03-2023 Insulin Pump C art,Auto,Bt-Cntr (Omnipod 5 G6 Intro Kit (Gen 5)) cartridge Active 0 .Route 1 December 03, 2023 1:00am x1 Insulin Pump Cart,Automated, Bt (Omnipod 5 G6 Pods (Gen 5)) cartridge (7 sources) Start: 05-31-2024 End: 01-13-2025 Insulin Pump Cart,Automated, Bt (Omnipod 5 G6 Pods (Gen 5)) cartridge Discontinued 0 .Route 10 May 31, 2024 8:04am January 13, 2025 4:22pm 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 1 pod 72 hours Start: 12-03-2023 End: 05-31-2024 Insulin Pump Cart,Automated, Bt (Omnipod 5 G6 Pods (Gen 5)) cartridge Discontinued 0 .Route 10 December 03, 2023 1:00am May 31, 2024 8:04am 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 1 pod 72 hours Start: 12-03-2023 Insulin Pump C art,Automated,Bt (Omnipod 5 G6 Pods (Gen 5)) cartridge Active 0 .Route December 03, 2023 1:00am 1 pod 72 hours Insulin Pump Cart,Automated,Bt cartridge (2 sources) Start: 01-13-2025 End: 02-23-2025 Insulin Pump Cart,Automated,Bt cartridge Discontinued 0 .Route 08 07January 13, 2025 4:22pm February 23, 2025 8:19am 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 1 pod 72 hours INSULIN SYRINGE-NEEDLE U-100 (2 sources) BD SAFETYGLIDE I NSULIN SYRINGE 31G X 15/64 0.3 ML MISC INSULIN SYRINGE-NEEDLE U-100 [id number] Alyssia Ibanez RN RN insulin aspart, human 100 unt/ml injectable solution (20 sources) Insulin Analogue Start: 01-26-2018 End: 01-26-2018 Insulin Aspart U-100 (Novolog U-100 Insulin Aspart) 100 unit/mL solution Discontinued 5 U SC daily January 26, 2018 12:00am January 26, 2018 2:37pm Start: 01-26-2018 End: 01-26-2018 Start: 01-21-2015 End: 01-26-2018 Insulin Aspart U-100 100 UNI TS/ML insulin pen Discontinued 10 U SC 3 TIMES DAILY WITH MEALS January 21, 2015 12:00am January 26, 2018 1:50pm Start: 01-21-2015 End: 01-26-2018 Start: 01-21-2015 End: 01-26-2018 Insulin Aspart U-100 Discont inued 10 UNIT SC 3 TIMES DAILY WITH MEALS January 21, 2015 12:00am January 26, 2018 1:50pm NOVOLOG 100 UNIT /ML SOLN INSULIN ASPART [id number] Alyssia Ibanez RN RN insulin, regular, human 100 unt/ml injectable solution (12 sources) Insulin Start: 08-19-2024 End: 08-19-2024 Start: 07-27-2024 End: 07-27-2024 Start: 07-26-2024 End: 08-04-2024 24 hr isosorbide mononitrate 30 mg extended release oral tablet (20 sources) Nitrate Vasodilator Start: 01-16-2018 End: 02-20-2018 take 1 tablet by mouth once daily Isosorbide Mononitrate 30 MG tablet Discontinued 30 mg PO DAILY 30 0 January 16, 2018 12:00am February 20, 2018 9:45am labetalol hydrochloride 5 mg/ml injectable solution (4 sources) beta-Adrenergic Darwin Start: 07-26-2024 End: 08-04-2024 100 ml levETIRAcetam 5 mg/ml injection (2 sources) Start: 08-13-2024 End: 08-13-2024 levoFLOXacin 750 mg oral tablet (19 sources) Quinolone Antimicrobial Start: 11-04-2023 End: 11-11-2023 take 1 tablet by mouth every twenty-four hours Levofloxacin 750 mg tablet Discontinued 750 mg PO Q24H 10 7 0 November 04, 2023 1:00am November 10, 2023 1:00am November 11, 2023 1:04am Start: 12-18-2012 End: 01-21-2013 take 1 tablet by mouth once daily LEVAQUIN 500 MG TABS One tablet by mouth daily for 5 days LEVOFLOXACIN [id number] Qi Dunham LPN lisinopril 2.5 mg oral tablet (20 sources) Angiotensin Converting Enzyme Inhibitor Start: 10-11-2024 End: 05-18-2025 take 1 tablet by mouth twice daily Lisinopril 2.5 mg tablet Discontinued 2.5 mg PO TWICE A DAY November 04, 2024 4:20pm May 18, 2025 8:52am Blood pressure Start: 10-11-2024 End: 11-04-2024 take 1 tablet by mouth once daily Lisinopril 2.5 mg tablet Discontinued 2.5 mg PO daily 90 3 November 04, 2024 11:47am November 04, 2024 4:20pm awaiting mail order RX Start: 08-12-2024 End: 08-24-2024 Start: 06-21-2018 End: 12-31-2018 take 2.5 mg by mouth once daily Lisinopril 5 MG tablet Discontinued 2.5 mg PO DAILY June 21, 2018 12:00am December 31, 2018 3:49pm blood pressure Start: 06-21-2018 End: 12-31-2018 Start: 01-16-2018 End: 01-29-2018 take 1 tablet by mouth once daily Lisinopril 5 MG tablet Discontinued 5 mg PO DAILY 30 0 January 16, 2018 12:00am January 29, 2018 8:59am Start: 01-16-2018 End: 01-29-2018 Start: 01-21-2015 End: 01-16-2018 take 1 tablet by mouth at bedtime Lisinopril 2.5 MG tablet Discontinued 2.5 mg PO AT BEDTIME January 21, 2015 12:00am January 16, 2018 9:18am Start: 01-21-2015 End: 01-16-2018 1 ml LORazepam 2 mg/ml injection (2 sources) Benzodiazepine Start: 08-13-2024 End: 08-13-2024 losartan potassium 25 mg oral tablet (20 sources) Angiotensin 2 Receptor Darwin Start: 11-19-2019 End: 08-29-2020 take 1 tablet by mouth once daily Losartan 25 mg tablet Discontinued 25 mg PO DAILY November 19, 2019 1:00am August 29, 2020 3:37pm 50 ml magnesium sulfate 40 mg/ml injection (6 sources) Start: 08-13-2024 End: 08-13-2024 Start: 07-26-2024 End: 07-28-2024 methylPREDNISolone 40 mg injection (4 sources) Corticosteroid Start: 08-12-2024 End: 08-13-2024 take 40 mg intravenously every six hours Start: 07-26-2024 End: 07-26-2024 take 40 mg intravenously every twelve hours mirtazapine 15 mg oral table t (20 sources) Start: 08-12-2024 End: 08-24-2024 Start: 08-02-2024 End: 08-10-2024 Start: 04-14-2024 End: 07-23-2024 take 1 tablet by mouth at bedtime Mirtazapine 7.5 mg tablet Discontinued 7.5 mg PO AT BEDTIME April 14, 2024 12:00am July 23, 2024 11:42pm mupirocin 0.02 mg/mg topical ointment (4 sources) RNA Synthetase Inhibitor Antibacterial Start: 08-12-2024 End: 08-17-2024 Start: 07-26-2024 End: 07-31-2024 1 ml naloxone hydrochloride 0.4 mg/ml injection (2 sources) Opioid Antagonist Start: 07-26-2024 End: 08-10-2024 nitrofurantoin, macrocrystals 25 mg / nitrofurantoin, monohydrate 75 mg oral capsule (8 sources) Nitrofuran Antibacterial Start: 08-09-2024 End: 08-24-2024 nystatin [id number] unt/ml oral suspension (20 sources) Polyene Antifungal Start: 06-23-2018 End: 12-31-2018 take [id number] [IU] by mouth four times daily Nystatin 500,000 UNIT/5 ML suspension Discontinued 480000 U PO 4 TIMES DAILY 1 0 June 23, 2018 12:00am December 31, 2018 3:49pm Continue usage until resolution of your oral fungal infection. oxyCODONE hydrochloride 5 mg oral tablet (7 sources) Opioid Agonist Start: 12-28-2024 End: 01-04-2025 take 1 tablet by mouth every eight hours as needed for pain Oxycodone 5 mg tablet Discontinued 5 mg PO Q8H as needed for pain 3 1 0 December 28, 2024 January 04, 2025 1:56am End stage renal failure on dialysis End stage renal disease Dependence on renal dialysis pantoprazole 40 mg delayed release oral tablet (4 sources) Proton Pump Inhibitor Start: 08-15-2024 End: 08-24-2024 Start: 08-03-2024 End: 08-04-2024 Pen Needle, Diabetic 1 EACH needle (2 sources) Start: 08-29-2020 End: 01-27-2025 Pen Needle, Diabetic 1 EACH needle Discontinued 1 NMA MC BEFORE MEALS AND AT BEDTIME 1 August 29, 2020 12:00am January 27, 2025 8:47am piperacillin 4000 mg / tazobactam 500 mg injection (2 sources) Penicillin-class Antibacterial, beta Lactamase Inhibitor Start: 08-12-2024 End: 08-12-2024 polyethylene glycol 3350 62921 mg powder for oral solution (4 sources) Osmotic Laxative Start: 08-17-2024 End: 08-24-2024 Start: 07-26-2024 End: 08-10-2024 take 17 g by mouth every twenty-four jesus rs as needed for constipation microencapsulated potassium chloride 10 meq extended release oral tablet (4 sources) Start: 08-22-2024 End: 08-22-2024 Start: 08-06-2024 End: 08-06-2024 Start: 08-06-2024 End: 08-06-2024 potassium gluconate 2.13 meq oral tablet (7 sources) Start: 12-16-2024 End: 01-06-2025 take 1 tablet by mouth three times daily Potassium Gluconate 500 mg (83 mg) tablet Discontinued 500 mg PO THREE TIMES A DAY December 16, 2024 1:00am January 06, 2025 12:20pm Supplement potassium phosphate 155 mg / sodium phosphate, dibasic 852 mg / sodium phosphate, monobasic 130 mg oral tablet (2 sources) Start: 07-29-2024 End: 07-29-2024 predniSONE 20 mg oral tablet (20 sources) Start: 01-06-2025 End: 01-27-2025 take 2 tablets by mouth once daily Prednisone 20 mg tablet Discontinued 40 mg PO DAILY 10 5 0 January 06, 2025 1:00am January 27, 2025 8:46am Start: 08-07-2024 End: 08-10-2024 Start: 05-13-2022 End: 07-04-2022 Prednisone 10 mg tablet Disc ontinued 10 mg PO daily 30 0 May 13, 2022 12:00am July 04, 2022 10:45am Chronic obstructive pulmonary disease Chronic obstructive pulmonary disease, unspecified take 4 tabs for three days, then 3 tabs for three days, then 2 tabs for three days, then 1 tab for 3 days Start: 06-27-2021 End: 02-21-2022 Prednisone 10 mg tablet Disc ontinued 10 mg PO daily 30 0 June 27, 2021 12:00am February 21, 2022 1:09pm take 4 tabs for three days, then 3 tabs for three days, then 2 tabs for three days, then 1 tab for 3 days Start: 06-23-2018 End: 07-30-2018 Prednisone 10 MG tablet Disc ontinued 10 mg PO DIRECTED June 23, 2018 12:00am July 30, 2018 12:54pm TAKE 4 TABLETS BY MOUTH DAILY WITH FOOD FOR 3 DAYS, THEN TAKE 3 TABLETS BY MOUTH DAILY WITH FOOD FOR 3 DAYS, THEN TAKE 2 TABLETS BY MOUTH DAILY WITH FOOD FOR 3 DAYS, THEN TAKE 1 TABLETS BY MOUTH DAILY WITH FOOD FOR 3 DAYS, THEN STOP Start: 06-23-2018 End: 07-30-2018 100 ml propofol 10 mg/ml injection (2 [...] sodium polystyrene sulfonate 250 mg/ml oral suspension (20 sources) Start: 04-14-2024 End: 07-23-2024 Sodium Polystyrene Sulf-Sorbtl (Sps (With Sorbitol)) 15-20 gram/60 mL suspension Discontinued mL PO as needed May 05, 2024 9:02am July 23, 2024 11:43pm tamsulosin hydrochloride 0.4 mg oral capsule (2 sources) alpha-Adrenergic Darwin Start: 08-22-2024 End: 08-24-2024 10 actuat tiotropium 0.0025 mg/actuat inhalation spray (20 sources) Anticholinergic Start: 08-12-2024 End: 08-24-2024 Start: 08-02-2024 End: 08-04-2024 Start: 06-21-2018 End: 09-12-2020 take 1 capsule by inhalation once daily Tiotropium [place] 18 MCG capsule, w/inhalation device Discontinued 18 ug IH DAILY June 21, 2018 12:00am September 12, 2020 9:59am breathing Start: 06-21-2018 End: 09-12-2020 SPIRIVA HANDIHAL ER 18 MCG CAPS Daily TIOTROPIUM BROMIDE MONOHYDRATE [id number] Alyssia Ibanez RN RN varenicline 1 mg oral tablet (4 sources) Partial Cholinergic Nicotinic Agonist End: 01-21-2013 take 2 tablets by mouth once daily CHANTIX 1 MG TABS Two tablets by mouth daily VARENICLINE TARTRATE [id number] Edie Kearney MD (6 sources) Start: 08-22-2024 [...] Classification Problem Date Documented Da te Episodic/Chronic Abdominal pain (3 sources) Abdominal pain; Translations: [Unspecified abdominal pain] Onset: 05-13-2025 05-08-2025 Episodic Acute and unspecified renal failure (20 sources) Injury of kidney; Translations: [Acute kidney failure, unspecified] Onset: 07-26-2024 06-21-2018 Episodic Acute cerebrovascular disease (18 sources) Hematoma of [...] Coronary atherosclerosis; Translations: [Atherosclerotic heart disease of [place] coronary artery without angina pectoris] Onset: 08-12-2024 02-17-2023 Chronic Deficiency and other anemia (20 sources) Anemia; Translations: [Anemia, unspecified] Onset: 07-26-2024 12-13-2022 Episodic Deficiency and other anemia (7 sources) Normocytic normochromic anemia; Translations: [Anemia, unspecified] 07-23-2024 Episodic Diabetes mellitus with complications (20 sources) Diabetes with neurological manifestations, type I [juvenile type], uncontrolled; Translations: [Diabetic ketoacidosis] Onset: 12-30-2012 12-30-2012 Chronic Diabetes mellitus without complication (20 sources) Type 1 diabetes mellitus; Translations: [Diabetes mellitus] Onset: 03-08-2009 02-23-2017 Chronic Diabetes mellitus without complication (19 sources) Insulin pump present; Translations: [Presence of insulin pump (external) (internal)] 10-07-2024 Episodic Disorders of lipid metabolism (20 sources) Mixed [...] unspecified] Onset: 08-12-2024 06-21-2018 Episodic Nutritional deficiencies (12 sources) Vitamin D deficiency; Translations: [Vitamin D deficiency, unspecified] 01-27-2025 Chronic Osteoporosis (15 sources) Osteoporosis; Translations: [Age-related osteoporosis without current pathological fracture] Onset: 01-27-2025 10-07-2024 Chronic Other circulatory disease (18 sources) Arteriovenous fistula; Translations: [Arteriovenous fistula, acquired] 01-11-2025 Chronic Comment on above: R brachiocephalic cr eated 12/28/24 Other circulatory disease (20 sources) Low blood [...] 06-21-2018 Episodic Other gastrointestinal disorders (20 sources) Adrian's sign; Translations: [Other specified symptoms and signs [...] respiratory system] Episodic Other lower respiratory disease (20 sources) Solitary nodule of lung; Translations: [Solitary pulmonary nodule] Onset: 02-06-2024 06-25-2023 Episodic Comment on above: Left upper lobe 4.5m m Other lower respiratory disease (7 sources) Solitary pulmonary nodule; Translations: [Solitary pulmonary nodule] 06-25-2023 Episodic Other lower respiratory disease (17 sources) Multiple nodules of lung; Translations: [Other nonspecific abnormal finding of lung field] Onset: 05-17-2024 02-05-2024 Episodic Other lower respiratory disease (3 sources) Other nonspecific abnormal finding of lung field; Translations: [Other nonspecific abnormal finding of lung field] Onset: 03-24-2025 02-05-2024 Episodic Other lower respiratory disease (3 sources) H/O: pneumonia; Translations: [Personal history of pneumonia (recurrent)] 08-25-2024 Episodic Other lower respiratory disease (7 sources) Dyspnea on exertion; Translations: [Other forms of dyspnea] 05-05-2024 Episodic Other lower respiratory disease (9 sources) Hypercapnia; Translations: [Other abnormalities of breathing] 11-04-2024 Episodic Other lower respiratory disease (1 source) Other abnormalities of breathing; Translations: [Other abnormalities of breathing] Onset: 03-24-2025 Episodic Other nutritional; endocrine; and metabolic disorders [...] Episodic Other nutritional; endocrine; and metabolic disorders (7 sources) Severe thinness in adulthood; Translations: [Underweight] 08-01-2024 Episodic Other screening for suspected conditions (not mental disorders or infectious disease) (8 sources) Patient encounter status; Translations: [Encounter for screening for osteoporosis] Onset: 07-29-2024 08-01-2024 Episodic Other skin disorders (20 sources) Lesion of skin of foot; Translations: [Changes in skin texture] Onset: 08-12-2024 12-13-2022 Episodic Other skin disorders (2 sources) Changes in skin texture; Translations: [Other specified disorders of skin] Episodic Pleurisy; pneumothorax; pulmonary collapse (15 sources) Bilateral pleural effusion; Translations: [Pleural effusion, not elsewhere classified] Onset: 01-06-2025 08-25-2024 Episodic Pneumonia (except that caused by tuberculosis or sexually transmitted disease) (20 sources) Pleural effusion associated with pulmonary infection; [...] [Tobacco use disorder] Episodic Residual codes; unclassified (16 sources) Harmful pattern of use of nicotine; Translations: [Tobacco use] 07-14-2023 Episodic Respiratory failure; insufficiency; arrest (adult) (20 sources) Chronic respiratory failure; Translations: [Chronic respiratory [...] loss of consciousness status unknown, initial encounter ([facility]); Translations: [Traumatic subdural hemorrhage with loss of consciousness status unknown, initial encounter ([facility])] Onset: 07-26-2024 Unclassified (3 sources) PMH - PAST MEDICAL HISTORY OF 03-23-2009 Viral infection (7 sources) Disease caused by 2019-nCoV; Translations: [COVID-19] 07-23-2024 Episodic Viral infection (2 sources) COVID-19; Translations: [COVID-19] Onset: 08-02-2024 Past or Other Problems Problem Classification Problem Date Documented Da te Episodic/Chronic Conditions associated with dizziness or vertigo (6 sources) Dizziness; Translations: [Dizziness and giddiness] Onset: 4 08-12-2024 Episodic Deficiency and other anemia (1 source) Anemia, unspecified; Translations: [Anemia, unspecified] Onset: 03-14-202 5 Episodic Nonspecific chest pain (6 sources) Chest pain; Translations: [Chest pain, unspecified] Onset: 4 08-12-2024 Episodic Other gastrointestinal disorders (2 sources) H/O: gastrointestinal disease; Translations: [Personal history of other diseases of the digestive system] Onset: 3 01-21-2013 Episodic Other upper respiratory disease (4 sources) Retropharyngeal abscess; Translations: [Disorder of pharynx] Onset: 3 01-21-2013 Episodic Residual codes; unclassified (1 source) Procedure and treatment not carried out due to patient leaving prior to being seen by health care provider; Translations: [Procedure and treatment not carried out due to patient leaving prior to being seen by health care provider] Onset: 5 Episodic Unclassified (1 source) Traumatic subdural hemorrhage with loss of consciousness status unknown, initial encounter ([facility]); Translations: [Traumatic subdural hemorrhage with loss of consciousness status unknown, initial encounter ([facility])] Onset: 4 Results Test Name Value Interpretation Reference Range Facility Abdomen/Pelvis W IV Cont ONL Yon 05-08-2025 Abdomen/Pelvis W IV Cont ONLY Normal [facility] Absolute lymphocyte countOrd ered By: Justin Parisi on 05-08-2025 Lymphocytes Auto (Unsp spec) [#/Vol] 1.62 10*3/uL 0.83-4.51 [facility] Absolute neutrophil countOrd ered By: Justin Parisi on 05-08-2025 Neutrophils (Bld) [#/Vol] 2.9 10*3/uL 2.0-7.7 [facility] Anion gap in Serum or Plasma Ordered By: Justin Parisi on 05-08-2025 Anion gap [Moles/Vol] 11 mmol/L 5-15 [facility] Automated lymphocyte count a s percentage of total leukocytesOrdered By: Justin Parisi on 05-08-2025 Lymphocytes/100 WBC Auto (Unsp spec) 27.5 % 19-41 [facility] BUN/creatinine ratioOrdered By: Justin Parisi on 05-08-2025 Urea nitrogen/Creatinine [Mass ratio] 8.8 mg/mg Low 10-20 [facility] Basophil percentageOrdered B y: Justin Parisi on 05-08-2025 Basophils/100 WBC (Bld) 0.8 % 0-1 [facility] Beta-Hydroxbytyrateon 2024 BETA-HYDROXYBUT 0.4 mmol/L High 0.0-0.3 [facility] Comment on above: Performed By: #### L 501.6900 ####[facility] [address] [place], [address] Beta-hydroxybutyrateOrdered By: [facility]latriceEugenio on 05-08-2025 Beta hydroxybutyrate [Mass/Vol] 0.4 mmol/L High 0.0-0.3 [facility] Bilirubin Test strip Ql (U)O rdered By: Justinmarine Parisi on 05-08-2025 Bilirubin Ql (U) Negative Negative [facility] Bilirubin, totalOrdered By: [facility]Iglesia on 05-08-2025 Bilirubin [Mass/Vol] 0.30 mg/dL 0.00-1.30 [facility] CBC W/Diff, Automatedon Absolute Lymph 1.62 X10 3/uL Normal 0.83-4.51 [facility] Comment on above: Performed By: #### L 100.0100, L501.2450, L501.5200, L500.4050 ####[facility] [address] [place], [address] Absolute Neut 2.9 X10 3/uL Normal 2.0-7.7 [facility] Comment on above: Performed By: #### L 100.0100, L501.2450, L501.5200, L500.4050 ####[facility] [address] [place], [address] Basophils/100 WBC (Bld) 0.8 % Normal 0-1 [facility] Comment on above: Performed By: #### L 100.0100, L501.2450, L501.5200, L500.4050 ####[facility] [address] [place], [address] Eosinophils/100 WBC (Bld) 15.1 % High 0-5 [facility] Comment on above: Performed By: #### L 100.0100, L501.2450, L501.5200, L500.4050 ####[facility] [address] [place], [address] Erythrocyte distribution width (RBC) [Ratio] 13.8 % Normal 11.6-14.6 [facility] Comment on above: Performed By: #### L 100.0100, L501.2450, L501.5200, L500.4050 ####[facility] [address] [place], [address] Hematocrit (Bld) [Volume fraction] 37.2 % Normal 37-47 [facility] Comment on above: Performed By: #### L 100.0100, L501.2450, L501.5200, L500.4050 ####[facility] [address] [place], [address] Hemoglobin (Bld) [Mass/Vol] 11.2 g/dL Low 12.0-15.0 [facility] Comment on above: Performed By: #### L 100.0100, L501.2450, L501.5200, L500.4050 ####[facility] [address] [place], [address] IG% 0.200 Normal 0.0-0.9 [facility] Comment on above: Result Comment: IG% - Immature Granulocytes (promyelocytes, myelocytes andmetamyelocytes) > 1% indicates that a LEFT SHIFT is Present. Performed By: #### L 100.0100, L501.2450, L501.5200, L500.4050 ####[facility] [address] [place], [address] Lymphocytes/100 WBC (Bld) 27.5 % Normal 19-41 [facility] Comment on above: Performed By: #### L 100.0100, L501.2450, L501.5200, L500.4050 ####[facility] [address] [place], [address] MCH (RBC) [Entitic mass] 28.1 pg Normal 27.0-32.0 [facility] Comment on above: Performed By: #### L 100.0100, L501.2450, L501.5200, L500.4050 ####[facility] [address] [place], [address] MCHC (RBC) [Mass/Vol] 30.1 g/dL Low 32-36 [facility] Comment on above: Performed By: #### L 100.0100, L501.2450, L501.5200, L500.4050 ####[facility] [address] [place], [address] MCV (RBC) [Entitic vol] 93.2 fL Normal 81-99 [facility] Comment on above: Performed By: #### L 100.0100, L501.2450, L501.5200, L500.4050 ####[facility] [address] [place], [address] Monocytes/100 WBC (Bld) 7.1 % Normal 0-10 [facility] Comment on above: Performed By: #### L 100.0100, L501.2450, L501.5200, L500.4050 ####[facility] [address] [place], [address] Neutrophils/100 WBC (Bld) 49.3 % Normal 47-70 [facility] Comment on above: Performed By: #### L 100.0100, L501.2450, L501.5200, L500.4050 ####[facility] [address] [place], [address] Nucleated RBC (Bld) [#/Vol] 0 10*3/uL Normal 0-5 [facility] Comment on above: Performed By: #### L 100.0100, L501.2450, L501.5200, L500.4050 ####[facility] [address] [place], [address] Platelet mean volume (Bld) [Entitic vol] 9.9 fL Normal 6.2-12.0 [facility] Comment on above: Performed By: #### L 100.0100, L501.2450, L501.5200, L500.4050 ####[facility] [address] [place], [address] Platelets (Bld) [#/Vol] 154 10*3/uL Normal 150-450 [facility] Comment on above: Performed By: #### L 100.0100, L501.2450, L501.5200, L500.4050 ####[facility] [address] [place], [address] RBC (Bld) [#/Vol] 3.99 10*6/uL Low 4.2-5.4 [facility] Comment on above: Performed By: #### L 100.0100, L501.2450, L501.5200, L500.4050 ####[facility] [address] [place], [address] RDW SD 47.4 fl High 35.1-43.9 [facility] Comment on above: Performed By: #### L 100.0100, L501.2450, L501.5200, L500.4050 ####[facility] [address] [place], [address] WBC (Bld) [#/Vol] 5.9 10*3/uL Normal 4.4-11.0 [facility] Comment on above: Performed By: #### L 100.0100, L501.2450, L501.5200, L500.4050 ####[facility] [address] [place], [address] CO2 (BldV) [Moles/Vol]Ordere d By: Justin Parisi on 05-08-2025 CO2 [Moles/Vol] 37 mmol/L High 23-33 [facility] Carbon dioxide, total [Moles /volume] in Central venous bloodOrdered By: Justin Parisi on 05-08-2025 CO2 [Moles/Vol] 28.6 mmol/L 21.0-32.0 [facility] Chest PA and Lateralon 05-08 Chest PA and Lateral Normal [facility] Chloride assayOrdered By: Kwadwo Parisi on 05-08-2025 Chloride [Moles/Vol] 102 mmol/L 98-108 [facility] Comprehensive Metabolic Prof ilon 05-08-2025 Albumin [Mass/Vol] 3.6 g/dL Normal 3.4-4.8 [facility] Comment on above: Performed By: #### L 100.0100, L501.2450, L501.5200, L500.4050 ####[facility] [address] [place], [address] Albumin/Globulin [Mass ratio] 1.3 {ratio} Normal 0.9-2.4 [facility] Comment on above: Performed By: #### L 100.0100, L501.2450, L501.5200, L500.4050 ####[facility] [address] [place], [address] ALK PHOS 63 U/L Normal 35-104 [facility] Comment on above: Performed By: #### L 100.0100, L501.2450, L501.5200, L500.4050 ####[facility] [address] [place], [address] ALT [Catalytic activity/Vol] 9 U/L Normal <=34 [facility] Comment on above: Performed By: #### L 100.0100, L501.2450, L501.5200, L500.4050 ####[facility] [address] [place], [address] AST [Catalytic activity/Vol] 22 U/L Normal <=31 [facility] Comment on above: Result Comment: Hemo lysis present, Results??could be affected.?? Performed By: #### L 100.0100, L501.2450, L501.5200, L500.4050 ####[facility] [address] [place], [address] Bilirubin [Mass/Vol] 0.30 mg/dL Normal 0.00-1.30 [facility] Comment on above: Performed By: #### L 100.0100, L501.2450, L501.5200, L500.4050 ####[facility] [address] [place], [address] BUN/CRE 8.8 RATIO Low 10-20 [facility] Comment on above: Performed By: #### L 100.0100, L501.2450, L501.5200, L500.4050 ####[facility] [address] [place], [address] Calcium [Mass/Vol] 8.3 mg/dL Normal 7.6-11.0 [facility] Comment on above: Performed By: #### L 100.0100, L501.2450, L501.5200, L500.4050 ####[facility] [address] [place], [address] Chloride [Moles/Vol] 102 mmol/L Normal 98-108 [facility] Comment on above: Performed By: #### L 100.0100, L501.2450, L501.5200, L500.4050 ####[facility] [address] [place], [address] CO2 [Moles/Vol] 28.6 mmol/L Normal 21.0-32.0 [facility] Comment on above: Performed By: #### L 100.0100, L501.2450, L501.5200, L500.4050 ####[facility] [address] [place], [address] Creatinine [Mass/Vol] 3.92 mg/dL High 0.70-1.20 [facility] Comment on above: Performed By: #### L 100.0100, L501.2450, L501.5200, L500.4050 ####[facility] [address] [place], [address] ECRCL 10.39 ml/min Low 50-250 [facility] Comment on above: Performed By: #### L 100.0100, L501.2450, L501.5200, L500.4050 ####[facility] [address] [place], [address] GAP 11 Normal 5-15 [facility] Comment on above: Performed By: #### L 100.0100, L501.2450, L501.5200, L500.4050 ####[facility] [address] [place], [address] GFR/1.73 sq M.predicted among non-blacks MDRD (S/P/Bld) [Vol rate/Area] 12 mL/min/{1.73_m2} Low >60 [facility] Comment on above: Result Comment: mL/m in/1.73m2 CKD-EPI Creatinine Equation (2020) Performed By: #### L 100.0100, L501.2450, L501.5200, L500.4050 ####[facility] [address] [place], [address] Globulin (S) [Mass/Vol] 2.7 g/dL Normal 2.2-4.2 [facility] Comment on above: Performed By: #### L 100.0100, L501.2450, L501.5200, L500.4050 ####[facility] [address] [place], [address] Glucose [Mass/Vol] 113 mg/dL High 70-99 [facility] Comment on above: Performed By: #### L 100.0100, L501.2450, L501.5200, L500.4050 ####[facility] [address] [place], [address] Potassium [Moles/Vol] 3.4 mmol/L Normal 3.3-5.1 [facility] Comment on above: Result Comment: Hemo lysis present, Results??could be affected.?? Performed By: #### L 100.0100, L501.2450, L501.5200, L500.4050 ####[facility] [address] [place], [address] Sodium [Moles/Vol] 141 mmol/L Normal 133-145 [facility] Comment on above: Performed By: #### L 100.0100, L501.2450, L501.5200, L500.4050 ####[facility] [address] [place], [address] T PROT 6.2 g/dL Normal 5.9-8.4 [facility] Comment on above: Performed By: #### L 100.0100, L501.2450, L501.5200, L500.4050 ####[facility] [address] [place], [address] Urea nitrogen [Mass/Vol] 34 mg/dL High 4-19 [facility] Comment on above: Performed By: #### L 100.0100, L501.2450, L501.5200, L500.4050 ####[facility] [address] [place], [address] Emergency Department Summary on 05-08-2025 Emergency Department Summary Normal [facility] Eosinophil percentageOrdered By: Justin Parisi on 05-08-2025 Eosinophils/100 WBC (Bld) 15.1 % High 0-5 [facility] Erythrocyte distribution wid th ratioOrdered By: [facility]Iglesia on 05-08-2025 Erythrocyte distribution width (RBC) [Ratio] 13.8 % 11.6-14.6 [facility] Erythrocyte distribution wid th standard deviationOrdered By: [facility]rohit Becker on 05-08-2025 Erythrocyte distribution width (RBC) [Ratio] 47.4 fl High 35.1-43.9 [facility] Glomerular filtration rate ( GFR) estimation/1.73 sq m using serum, plasma, or whole bOrdered By: [place] Isak on 05-08-2025 GFR/1.73 sq M.predicted among non-blacks MDRD (S/P/Bld) [Vol rate/Area] 12 mL/min/{1.73_m2} Low >60 [facility] Comment on above: mL/min/1.73m2 CKD-EP I Creatinine Equation (2020) Hematocrit Auto (Bld) [Volum e fraction]Ordered By: Justin Parisi on 05-08-2025 Hematocrit (Bld) [Volume fraction] 37.2 % 37-47 [facility] Hemoglobin measurementOrdere d By: Justin Parisi on 05-08-2025 Hemoglobin (Bld) [Mass/Vol] 11.2 g/dL Low 12.0-15.0 [facility] Immature granulocytes/100 WB C Auto (Bld)Ordered By: Justin Parisi on 05-08-2025 Immature granulocytes/100 WBC (Bld) 0.200 % 0.0-0.9 [facility] Comment on above: IG% - Immature Granu locytes (promyelocytes, myelocytes and metamyelocytes) > 1% indicates that a LEFT SHIFT is Present. Ketones Test strip Ql (U)Ord ered By: Justin Parisi on 05-08-2025 Ketones Ql (U) Negative Negative [facility] Laboratory - Chemistry and C hemistry - challengeOrdered By: Justin Parisi on 05-08-2025 AST [Catalytic activity/Vol] 22 U/L <32 [facility] Comment on above: Hemolysis present, R esults could be affected. Lipaseon 05-08-2025 Lipase [Catalytic activity/Vol] 12 U/L Low 13-75 [facility] Comment on above: Result Comment: Ry adhikari note:LIPASE revised reference range effective 23.New Lipase methodology. Expected to produce lower valuesthan the previous assay method.NEW Reference Range: 13 - 75 U/L Performed By: #### L 100.0100, L501.2450, L501.5200, L500.4050 ####[facility] [address] [place], [place], [address] Lipase measurementOrdered By : [facility]latriceB[facility] CenterEugenio on 05-08-2025 Lipase [Catalytic activity/Vol] 12 U/L Low 13-75 [facility] Comment on above: Please note:LIPASE r evised reference range effective 23. New Lipase methodology. Expected to produce lower values than the previous assay method. NEW Reference Range: 13 - 75 U/L MCV (mean corpuscular volume ) determinationOrdered By: Justin Parisi on 05-08-2025 MCV (RBC) [Entitic vol] 93.2 fL 81-99 [facility] Magnesiumon 05-08-2025 Magnesium [Mass/Vol] 2.1 mg/dL Normal 1.5-2.2 [facility] Comment on above: Performed By: #### L 100.0100, L501.2450, L501.5200, L500.4050 ####[facility] [address] [place], [address] Magnesium measurement (mass/ volume)Ordered By: Justin Parisi on 05-08-2025 Magnesium (Unsp spec) [Mass/Vol] 2.1 mg/dL 1.5-2.2 [facility] Mean corpuscular hemoglobin (MCH) determinationOrdered By: Justin Parisi on 05-08-2025 MCH (RBC) [Entitic mass] 28.1 pg 27.0-32.0 [facility] Mean corpuscular hemoglobin concentration (MCHC) determinationOrdered By: Justin Pairsi on 05-08-2025 MCHC (RBC) [Mass/Vol] 30.1 g/dL Low 32-36 [facility] Mean platelet volume determi nationOrdered By: Justin Parisi on 05-08-2025 Platelet mean volume (Bld) [Entitic vol] 9.9 fL 6.2-12.0 [facility] Microscopic analysis of urin e for red blood cells (RBC)Ordered By: Justin Parisi on 05-08-2025 Microscopic analysis of urine for red blood cells (RBC) 0 SEEN /hpf 0-5 [facility] Monocyte percentageOrdered B y: Justin Parisi on 05-08-2025 Monocytes/100 WBC (Bld) 7.1 % 0-10 [facility] Mucus LM Ql (Urine sed)Order ed By: Justin Parisi on 05-08-2025 Mucus Ql (Urine sed) 0 SEEN /hpf [facility] Neutrophil percentageOrdered By: Justin Parisi on 05-08-2025 Neutrophils/100 WBC (Bld) 49.3 % 47-70 [facility] Nitrite Test strip Ql (U)Ord ered By: Justin Parisi on 05-08-2025 Nitrite Ql (U) Negative Negative [facility] No Panel InformationOrdered By: Justin Parisi on 05-08-2025 Blood Gas Sample Site Not entered Wo [facility] Blood Gas Specimen Type ROHIT [facility] Oxygen Delivery Device Not entered W [facility] Nucleated red blood cell per centageOrdered By: Justin Parisi on 05-08-2025 Nucleated RBC/100 WBC (Bld) [Ratio] 0 % 0-5 [facility] Platelet countOrdered By: Kwadwo Parisi on 05-08-2025 Platelets (Bld) [#/Vol] 154 10*3/uL 150-450 [facility] Potassium measurement (mass/ volume)Ordered By: Justin Parisi on 05-08-2025 Potassium (Unsp spec) [Mass/Vol] 3.4 mmol/L 3.3-5.1 [facility] Comment on above: Hemolysis present, R esults could be affected. Protein Test strip Ql (U)Ord ered By: Justin Parisi on 05-08-2025 Protein Ql (U) 500 mg/dl High Negative [facility] RBC Auto (Bld) [#/Vol]Ordere d By: Justin Parisi on 05-08-2025 RBC (Bld) [#/Vol] 3.99 10*6/uL Low 4.2-5.4 [facility] Serum creatinine measurement (mass/volume)Ordered By: Justin Parisi on 05-08-2025 Creatinine [Mass/Vol] 3.92 mg/dL High 0.70-1.20 [facility] Serum globulin measurementOr dered By: Justin Parisi on 05-08-2025 Globulin (S) [Mass/Vol] 2.7 g/dL 2.2-4.2 [facility] Serum glucose measurement (m ass/volume)Ordered By: Justin Parisi on 05-08-2025 Glucose [Mass/Vol] 113 mg/dL High 70-99 [facility] Serum or plasma alanine martinez otransferase (ALT) measurementOrdered By: Justin Parisi on 05-08-2025 ALT [Catalytic activity/Vol] 9 U/L <35 [facility] Serum or plasma albumin lesly urement (mass/volume)Ordered By: Justin Becker on 05-08-2025 Albumin [Mass/Vol] 3.6 g/dL 3.4-4.8 [facility] Serum or plasma albumin/glob ulin mass ratioOrdered By: Justin Parisi on 05-08-2025 Albumin/Globulin [Mass ratio] 1.3 {ratio} 0.9-2.4 [facility] Serum or plasma alkaline william sphatase measurementOrdered By: Justin Parisi on 05-08-2025 ALP [Catalytic activity/Vol] 63 U/L 35-104 [facility] Serum or plasma calcium lesly urement (mass/volume)Ordered By: Justin Becker on 05-08-2025 Calcium [Mass/Vol] 8.3 mg/dL 7.6-11.0 [facility] Serum or plasma urea nitroge n measurement (mass/volume)Ordered By: Justin Parisi on 05-08-2025 Urea nitrogen [Mass/Vol] 34 mg/dL High 4-19 [facility] Sodium levelOrdered By: Chetan Parisi on 05-08-2025 Sodium [Moles/Vol] 141 mmol/L 133-145 [facility] Squamous epithelial cells de tection in urine sediment by light microscopyOrdered By: Justin Parisi on 05-08-2025 Epithelial cells.squamous LM Ql (Urine sed) 0-5 SEEN /hpf 03-12 [facility] Total proteinOrdered By: Vega Parisi on 05-08-2025 Protein [Mass/Vol] 6.2 g/dL 5.9-8.4 [facility] Urinalysis, Completeon 05-08 EPI,SQUAMOUS 0-5 SEEN Normal - [facility] Comment on above: Order Comment: BONNIE TER SPECIMEN Performed By: #### L 400.0001 ####[facility] [address] [place], [address] BACTERIA 0 SEEN Normal None Seen [facility] Comment on above: Order Comment: BONNIE TER SPECIMEN Performed By: #### L 400.0001 ####[facility] [address] [place], [address] Mucus Ql (Urine sed) 0 SEEN Normal [facility] Comment on above: Order Comment: BONNIE TER SPECIMEN Performed By: #### L 400.0001 ####[facility] [address] [place], [place], [id number] RBC 0 SEEN Normal 0-5 [facility] Comment on above: Order Comment: BONNIE TER SPECIMEN Performed By: #### L 400.0001 ####[facility] [address] [place], [address] WBC 0 SEEN Normal 0-5 [facility] Comment on above: Order Comment: BONNIE TER SPECIMEN Performed By: #### L 400.0001 ####[facility] [address] [place], [place], [id number] Urine clarityOrdered By: Vega Parisi on 05-08-2025 Clarity (U) Clear Clear [facility] Urine color determinationOrd ered By: Justin Parisi on 05-08-2025 Color (U) Yellow Yellow [facility] Urine glucose detectionOrder ed By: Justin Parisi on 05-08-2025 Glucose Ql (U) 50 mg/dl High Normal [facility] Urine leukocyte esterase det ection by dipstickOrdered By: Justin Parisi on 05-08-2025 Leukocyte esterase Test strip Ql (U) Negative Negative [facility] Urine pHOrdered By: Justin Parekh on 05-08-2025 pH (U) 6.0 [pH] 5.0 - 8.0 [facility] Urine sediment bacteria coun t by microscopy (number/high power field)Ordered By: Justin Parisi on 05-08-2025 Bacteria LM.HPF (Urine sed) [#/Area] 0 /[HPF] None Seen [facility] Urine specific gravity measu rementOrdered By: Justin Parisi on 05-08-2025 Specific gravity (U) [Rel density] 1.020 1.002-1.030 [facility] Urine urobilinogen measureme ntOrdered By: Justin Parisi on 05-08-2025 Urobilinogen Ql (U) Normal mg/dl Normal [facility] Venous Blood Gason 5 Blood Gas Type ROHIT Normal [facility] Comment on above: Performed By: #### L 9000.0810 ####[facility] [address] [place], [address] CO2 [Moles/Vol] 37 mmol/L High 23-33 [facility] Comment on above: Performed By: #### L 9000.0810 ####[facility] [address] [place], [address] FI02 2.0 Normal [facility] Comment on above: Performed By: #### L 9000.0810 ####[facility] [address] [place], [address] HCO3 (Bld) [Moles/Vol] 35 mmol/L High 22-26 [facility] Comment on above: Performed By: #### L 9000.0810 ####[facility] [address] [place], [address] O2 Delivery Dev Not entered [facility] Comment on above: Performed By: #### L 9000.0810 ####[facility] [address] [place], [address] SITE Not entered [facility] Comment on above: Performed By: #### L 9000.0810 ####[facility] [address] [place], [address] VBG BE 8 mmol/L High -1.0-3.5 [facility] Comment on above: Performed By: #### L 9000.0810 ####[facility] [address] [place], [address] VBG pCO2 67.0 mmHg High 41-51 [facility] Comment on above: Performed By: #### L 9000.0810 ####[facility] [address] [place], [address] VBG pH 7.32 Normal 7.32-7.42 [facility] Comment on above: Performed By: #### L 9000.0810 ####[facility] [address] [place], [address] VBG PO2 27 mmHg Normal 25-40 [facility] Comment on above: Performed By: #### L 9000.0810 ####[facility] [address] [place], [place], [id number] VBG SO2 44 Low 50-70 [facility] Comment on above: Performed By: #### L 9000.0810 ####[facility] [address] [place], [place], [address] Venous blood base excess allyn surementOrdered By: Justin Parisi on 05-08-2025 Base excess Calc (BldV) [Moles/Vol] 8 mmol/L High -1.0-3.5 [facility] Venous blood bicarbonate allyn surementOrdered By: Justin Parisi on 05-08-2025 HCO3 (Bld) [Moles/Vol] 35 mmol/L High 22-26 [facility] Venous blood oxygen saturati on measurementOrdered By: Justin Parisi on 05-08-2025 Oxygen saturation in Blood 44 % Low 50-70 [facility] Venous blood pH measurementO rdered By: Justin Pariis on 05-08-2025 pH (BldV) 7.32 [pH] 7.32-7.42 [facility] Venous blood partial pressur e of carbon dioxide measurementOrdered By: Justin Parisi on 05-08-2025 CO2 (BldV) [Partial pressure] 67.0 mm[Hg] High 41-51 [facility] Venous blood partial pressur e of oxygen measurementOrdered By: Justin Becker on 05-08-2025 Oxygen (BldV) [Partial pressure] 27 mm[Hg] 25-40 [facility] White blood cell (WBC) count Ordered By: Justin Parisi on 05-08-2025 WBC (Bld) [#/Vol] 5.9 10*3/uL 4.4-11.0 [facility] White blood cell countOrdere d By: Justin Parisi on 05-08-2025 White blood cell count 0 SEEN /hpf 0-5 [facility] Potassiumon 04-11-2025 Potassium [Moles/Vol] 3.7 mmol/L Normal 3.3-5.1 [facility] Comment on above: Performed By: #### L 501.5600 ####[facility] [address] [place], [address] Potassium measurement (mass/ volume)Ordered By: Christy Huerta on 04-11-2025 Potassium (Unsp spec) [Mass/Vol] 3.7 mmol/L 3.3-5.1 [facility] 12 Lead EKGon 04-09-2025 12 Lead EKG Normal [facility] Anion gap in Serum or Plasma Ordered By: Milind Heath on 04-09-2025 Anion gap [Moles/Vol] 8 mmol/L 5-15 [facility] BUN/creatinine ratioOrdered By: Milind Heath on 04-09-2025 Urea nitrogen/Creatinine [Mass ratio] 5.6 mg/mg Low 10-20 [facility] Basic Metabolic Profile (BMP )on 04-09-2025 BUN/CRE 5.6 RATIO Low 10-20 [facility] Comment on above: Performed By: #### L 500.2500, L501.5200 ####[facility] [address] [place], [address] Calcium [Mass/Vol] 9.2 mg/dL Normal 7.6-11.0 [facility] Comment on above: Performed By: #### L 500.2500, L501.5200 ####[facility] [address] [place], [address] Chloride [Moles/Vol] 102 mmol/L Normal 98-108 [facility] Comment on above: Performed By: #### L 500.2500, L501.5200 ####[facility] [address] [place], [address] CO2 [Moles/Vol] 31.4 mmol/L Normal 21.0-32.0 [facility] Comment on above: Performed By: #### L 500.2500, L501.5200 ####[facility] [address] [place], [address] Creatinine [Mass/Vol] 3.39 mg/dL High 0.70-1.20 [facility] Comment on above: Performed By: #### L 500.2500, L501.5200 ####[facility] [address] [place], [address] GAP 8 Normal 5-15 [facility] Comment on above: Performed By: #### L 500.2500, L501.5200 ####[facility] [address] [place], [address] GFR/1.73 sq M.predicted among non-blacks MDRD (S/P/Bld) [Vol rate/Area] 14 mL/min/{1.73_m2} Low >60 [facility] Comment on above: Result Comment: mL/m in/1.73m2 CKD-EPI Creatinine Equation (2020) Performed By: #### L 500.2500, L501.5200 ####[facility] [address] [place], [address] Glucose [Mass/Vol] 151 mg/dL High 70-99 [facility] Comment on above: Performed By: #### L 500.2500, L501.5200 ####[facility] [address] [place], [address] Potassium [Moles/Vol] 2.8 mmol/L Low 3.3-5.1 [facility] Comment on above: Result Comment: Hemo lysis present, Results??could be affected.?? Performed By: #### L 500.2500, L501.5200 ####[facility] [address] [place], [address] Sodium [Moles/Vol] 142 mmol/L Normal 133-145 [facility] Comment on above: Performed By: #### L 500.2500, L501.5200 ####[facility] [address] [place], [address] Urea nitrogen [Mass/Vol] 19 mg/dL Normal 4-19 [facility] Comment on above: Performed By: #### L 500.2500, L501.5200 ####[facility] [address] [place], [address] Carbon dioxide, total [Moles /volume] in Central venous bloodOrdered By: Milind Heath on 04-09-2025 CO2 [Moles/Vol] 31.4 mmol/L 21.0-32.0 [facility] Chloride assayOrdered By: Britton Heath on 04-09-2025 Chloride [Moles/Vol] 102 mmol/L 98-108 [facility] Emergency Department Summary on 04-09-2025 Emergency Department Summary Normal [facility] Glomerular filtration rate ( GFR) estimation/1.73 sq m using serum, plasma, or whole bOrdered By: Milindella Batistao on 04-09-2025 GFR/1.73 sq M.predicted among non-blacks MDRD (S/P/Bld) [Vol rate/Area] 14 mL/min/{1.73_m2} Low >60 [facility] Comment on above: mL/min/1.73m2 CKD-EP I Creatinine Equation (2020) Magnesiumon 04-09-2025 Magnesium [Mass/Vol] 2.2 mg/dL Normal 1.5-2.2 [facility] Comment on above: Performed By: #### L 500.2500, L501.5200 ####[facility] [address] [place], [place], [address] Magnesium measurement (mass/ volume)Ordered By: Milind Heath on 04-09-2025 Magnesium (Unsp spec) [Mass/Vol] 2.2 mg/dL 1.5-2.2 [facility] Potassiumon 04-09-2025 Potassium [Moles/Vol] 2.3 mmol/L Invalid Interpretation Code 3.3-5.1 [facility] Comment on above: Result Comment: Crit ical Result(s) Called at:1140 by:??August Ibanez to Dr. Alvarez. Results read back by same. Performed By: #### L 501.5600 ####[facility] [address] [facility] [place], [place], [address] Potassium measurement (mass/ volume)Ordered By: Milindella Heath on 04-09-2025 Potassium (Unsp spec) [Mass/Vol] 2.8 mmol/L Low 3.3-5.1 [facility] Comment on above: Hemolysis present, R esults could be affected. Potassium measurement (mass/ volume)Ordered By: Christy Huerta on 04-09-2025 Potassium (Unsp spec) [Mass/Vol] 2.3 mmol/L Low 3.3-5.1 [facility] Comment on above: Critical Result(s) C alled at:1140 by: August Ibanez to Dr. Sarah Huerta. Results read back by same. Serum creatinine measurement (mass/volume)Ordered By: Milind Heath on 04-09-2025 Creatinine [Mass/Vol] 3.39 mg/dL High 0.70-1.20 [facility] Serum glucose measurement (m ass/volume)Ordered By: Milindella Heath on 04-09-2025 Glucose [Mass/Vol] 151 mg/dL High 70-99 [facility] Serum or plasma calcium lesly urement (mass/volume)Ordered By: Milindella Heath on 04-09-2025 Calcium [Mass/Vol] 9.2 mg/dL 7.6-11.0 [facility] Serum or plasma urea nitroge n measurement (mass/volume)Ordered By: Milind Heath on 04-09-2025 Urea nitrogen [Mass/Vol] 19 mg/dL - [facility] Sodium levelOrdered By: Milind Heath on 04-09-2025 Sodium [Moles/Vol] 142 mmol/L 133-145 [facility] Surgery Visit Reporton 03-22 Surgery Visit Report Normal [facility] Endocrinology Visit Reporton 01-27-2025 Endocrinology Visit Report Normal [facility] Chest without Contraston Chest without Contrast Normal [facility] Surgery Visit Reporton 01-11 Surgery Visit Report Normal [facility] Basic Metabolic Profile (BMP )on 01-07-2025 BUN Normal 02-19 [facility] Comment on above: Result Comment: Canc elled via OM: Order cancelled - Patient discharged Performed By: #### L 100.0100, L500.2500 ####[facility] [address] [place], [address] BUN/CRE Normal - [facility] Comment on above: Result Comment: Canc elled via OM: Order cancelled - Patient discharged Performed By: #### L 100.0100, L500.2500 ####[facility] [address] [place], [address] Calcium Normal 7.6-11.0 [facility] Comment on above: Result Comment: Canc elled via OM: Order cancelled - Patient discharged Performed By: #### L 100.0100, L500.2500 ####[facility] [address] [place], [address] CL Normal 98-108 [facility] Comment on above: Result Comment: Canc elled via OM: Order cancelled - Patient discharged Performed By: #### L 100.0100, L500.2500 ####[facility] [address] [place], [address] CO2 Normal 21.0-32.0 [facility] Comment on above: Result Comment: Canc elled via OM: Order cancelled - Patient discharged Performed By: #### L 100.0100, L500.2500 ####[facility] [address] [place], [address] CREAT,SERUM Normal 0.70-1.20 [facility] Comment on above: Result Comment: Canc elled via OM: Order cancelled - Patient discharged Performed By: #### L 100.0100, L500.2500 ####[facility] [address] [place], [address] eGFR Normal >60 [facility] Comment on above: Result Comment: Canc elled via OM: Order cancelled - Patient discharged Performed By: #### L 100.0100, L500.2500 ####[facility] [address] [place], [address] GAP Normal 5-15 [facility] Comment on above: Result Comment: Canc elled via OM: Order cancelled - Patient discharged Performed By: #### L 100.0100, L500.2500 ####[facility] [address] [place], [address] GLU Normal 70-99 [facility] Comment on above: Result Comment: Canc elled via OM: Order cancelled - Patient discharged Performed By: #### L 100.0100, L500.2500 ####[facility] [address] [place], [address] Potassium Normal 3.3-5.1 [facility] Comment on above: Result Comment: Canc elled via OM: Order cancelled - Patient discharged Performed By: #### L 100.0100, L500.2500 ####[facility] [address] [place], [address] Basic Metabolic Profile (BMP) Normal 133-145 [facility] Comment on above: Result Comment: Canc elled via OM: Order cancelled - Patient discharged Performed By: #### L 100.0100, L500.2500 ####[facility] [address] [place], [address] CBC W/Diff, Automatedon 03-0 Absolute Neut Normal 2.0-7.7 [facility] Comment on above: Result Comment: Canc elled via OM: Order cancelled - Patient discharged Performed By: #### L 100.0100, L500.2500 ####[facility] [address] [place], [address] HCT Normal 37-47 [facility] Comment on above: Result Comment: Canc elled via OM: Order cancelled - Patient discharged Performed By: #### L 100.0100, L500.2500 ####[facility] [address] [place], [address] HGB Normal 12.0-15.0 [facility] Comment on above: Result Comment: Canc elled via OM: Order cancelled - Patient discharged Performed By: #### L 100.0100, L500.2500 ####[facility] [address] [place], [address] MCH Normal 27.0-32.0 [facility] Comment on above: Result Comment: Canc elled via OM: Order cancelled - Patient discharged Performed By: #### L 100.0100, L500.2500 ####[facility] [address] [place], [address] MCHC Normal 32-36 [facility] Comment on above: Result Comment: Canc elled via OM: Order cancelled - Patient discharged Performed By: #### L 100.0100, L500.2500 ####[facility] [address] [place], [address] MCV Normal 81-99 [facility] Comment on above: Result Comment: Canc elled via OM: Order cancelled - Patient discharged Performed By: #### L 100.0100, L500.2500 ####[facility] [address] [place], [address] NEUT% Normal 47-70 [facility] Comment on above: Result Comment: Canc elled via OM: Order cancelled - Patient discharged Performed By: #### L 100.0100, L500.2500 ####[facility] [address] [place], [address] PLT Normal 150-450 [facility] Comment on above: Result Comment: Canc elled via OM: Order cancelled - Patient discharged Performed By: #### L 100.0100, L500.2500 ####[facility] [address] [place], [address] RBC Normal 4.2-5.4 [facility] Comment on above: Result Comment: Canc elled via OM: Order cancelled - Patient discharged Performed By: #### L 100.0100, L500.2500 ####[facility] [address] [place], [address] RDW CV Normal 11.6-14.6 [facility] Comment on above: Result Comment: Canc elled via OM: Order cancelled - Patient discharged Performed By: #### L 100.0100, L500.2500 ####[facility] [address] [place], [address] RDW SD Normal 35.1-43.9 [facility] Comment on above: Result Comment: Canc elled via OM: Order cancelled - Patient discharged Performed By: #### L 100.0100, L500.2500 ####[facility] [address] [place], [address] WBC Normal 4.4-11.0 [facility] Comment on above: Result Comment: Canc elled via OM: Order cancelled - Patient discharged Performed By: #### L 100.0100, L500.2500 ####[facility] [address] [place], [address] Absolute lymphocyte countOrd ered By: He Cat on 01-06-2025 Lymphocytes Auto (Unsp spec) [#/Vol] 0.66 10*3/uL Low 0.83-4.51 [facility] Absolute neutrophil countOrd ered By: He Cat on 01-06-2025 Absolute neutrophil count 9.7 X10^3/uL High 2.0-7.7 [facility] Anion gap [Moles/Vol]Ordered By: He Cat on 01-06-2025 Anion gap in Serum or Plasma 12 5-15 [facility] Anion gap in Serum or Plasma Ordered By: Hevickie Cat on 01-06-2025 Anion gap [Moles/Vol] 12 mmol/L 03-17 [facility] Automated lymphocyte count a s percentage of total leukocytesOrdered By: He Cat on 01-06-2025 Lymphocytes/100 WBC Auto (Unsp spec) 6.0 % Low 19-41 [facility] BUN/creatinine ratioOrdered By: He Cat on 01-06-2025 Urea nitrogen/Creatinine [Mass ratio] 13.0 mg/mg 10- [facility] BUN/creatinine ratio 13.0 RATIO 10- [facility] Basic Metabolic Profile (BMP )on 01-06-2025 BUN/CRE 13.0 RATIO Normal 10-20 [facility] Comment on above: Performed By: #### L 500.2500, L100.0100 ####[facility] [address] [place], [address] Calcium [Mass/Vol] 8.9 mg/dL Normal 7.6-11.0 [facility] Comment on above: Performed By: #### L 500.2500, L100.0100 ####[facility] [address] [place], [address] Chloride [Moles/Vol] 101 mmol/L Normal 98-108 [facility] Comment on above: Performed By: #### L 500.2500, L100.0100 ####[facility] [address] [place], [address] CO2 [Moles/Vol] 21.1 mmol/L Normal 21.0-32.0 [facility] Comment on above: Performed By: #### L 500.2500, L100.0100 ####[facility] [address] [place], [address] Creatinine [Mass/Vol] 3.23 mg/dL High 0.70-1.20 [facility] Comment on above: Performed By: #### L 500.2500, L100.0100 ####[facility] [address] [place], [address] ECRCL 12.75 ml/min Low 50-250 [facility] Comment on above: Performed By: #### L 500.2500, L100.0100 ####[facility] [address] [place], [address] GAP 12 Normal 5-15 [facility] Comment on above: Performed By: #### L 500.2500, L100.0100 ####[facility] [address] [place], [address] GFR/1.73 sq M.predicted among non-blacks MDRD (S/P/Bld) [Vol rate/Area] 15 mL/min/{1.73_m2} Low >60 [facility] Comment on above: Result Comment: mL/m in/1.73m2 CKD-EPI Creatinine Equation (2020) Performed By: #### L 500.2500, L100.0100 ####[facility] [address] [place], [address] Glucose [Mass/Vol] 337 mg/dL High 70-99 [facility] Comment on above: Performed By: #### L 500.2500, L100.0100 ####[facility] [address] [place], [address] Potassium [Moles/Vol] 5.6 mmol/L High 3.3-5.1 [facility] Comment on above: Performed By: #### L 500.2500, L100.0100 ####[facility] [address] [place], [address] Sodium [Moles/Vol] 134 mmol/L Normal 133-145 [facility] Comment on above: Performed By: #### L 500.2500, L100.0100 ####[facility] [address] [place], [address] Urea nitrogen [Mass/Vol] 42 mg/dL High 4-19 [facility] Comment on above: Performed By: #### L 500.2500, L100.0100 ####[facility] [address] [place], [address] Basophil percentageOrdered B y: He Cat on 01-06-2025 Basophils/100 WBC (Bld) 0.1 % 0-1 [facility] Bedside Glucoseon 01-06-2025 FINGERSTICK GLU 374 mg/dL High 74-106 [facility] Comment on above: Result Comment: SHELLY GEMENT OF PATIENT CARE PER NURSING PROTOCOL Performed By: #### L 501.080 ####[facility] [address] [place], [address] FINGERSTICK GLU 309 mg/dL High 74-106 [facility] Comment on above: Result Comment: SHELLY GEMENT OF PATIENT CARE PER NURSING PROTOCOL Performed By: #### L 501.080 ####[facility] [address] [place], [address] CBC W/Diff, Automatedon 03-0 Absolute Lymph 0.66 X10 3/uL Low 0.83-4.51 [facility] Comment on above: Performed By: #### L 500.2500, L100.0100 ####[facility] [address] [place], [address] Absolute Neut 9.7 X10 3/uL High 2.0-7.7 [facility] Comment on above: Performed By: #### L 500.2500, L100.0100 ####[facility] [address] [place], [address] Basophils/100 WBC (Bld) 0.1 % Normal 0-1 [facility] Comment on above: Performed By: #### L 500.2500, L100.0100 ####[facility] [address] [place], [address] Eosinophils/100 WBC (Bld) 0.1 % Normal 0-5 [facility] Comment on above: Performed By: #### L 500.2500, L100.0100 ####[facility] [address] [place], [address] Erythrocyte distribution width (RBC) [Ratio] 13.0 % Normal 11.6-14.6 [facility] Comment on above: Performed By: #### L 500.2500, L100.0100 ####[facility] [address] [place], [address] Hematocrit (Bld) [Volume fraction] 28.8 % Low 37-47 [facility] Comment on above: Performed By: #### L 500.2500, L100.0100 ####[facility] [address] [place], [address] Hemoglobin (Bld) [Mass/Vol] 9.1 g/dL Low 12.0-15.0 [facility] Comment on above: Performed By: #### L 500.2500, L100.0100 ####[facility] [address] [place], [address] IG% 1.000 High 0.0-0.9 [facility] Comment on above: Result Comment: IG% - Immature Granulocytes (promyelocytes, myelocytes andmetamyelocytes) > 1% indicates that a LEFT SHIFT is Present. Performed By: #### L 500.2500, L100.0100 ####[facility] [address] [place], [address] Lymphocytes/100 WBC (Bld) 6.0 % Low 19-41 [facility] Comment on above: Performed By: #### L 500.2500, L100.0100 ####[facility] [address] [place], [address] MCH (RBC) [Entitic mass] 30.4 pg Normal 27.0-32.0 [facility] Comment on above: Performed By: #### L 500.2500, L100.0100 ####[facility] [address] [place], [address] MCHC (RBC) [Mass/Vol] 31.6 g/dL Low 32-36 [facility] Comment on above: Performed By: #### L 500.2500, L100.0100 ####[facility] [address] [place], [address] MCV (RBC) [Entitic vol] 96.3 fL Normal 81-99 [facility] Comment on above: Performed By: #### L 500.2500, L100.0100 ####[facility] [address] [place], [address] Monocytes/100 WBC (Bld) 4.8 % Normal 0-10 [facility] Comment on above: Performed By: #### L 500.2500, L100.0100 ####[facility] [address] [place], [address] Neutrophils/100 WBC (Bld) 88.0 % High 47-70 [facility] Comment on above: Performed By: #### L 500.2500, L100.0100 ####[facility] [address] [place], [address] Nucleated RBC (Bld) [#/Vol] 0 10*3/uL Normal 0-5 [facility] Comment on above: Performed By: #### L 500.2500, L100.0100 ####[facility] [address] [place], [address] Platelet mean volume (Bld) [Entitic vol] 9.8 fL Normal 6.2-12.0 [facility] Comment on above: Performed By: #### L 500.2500, L100.0100 ####[facility] [address] [place], [address] Platelets (Bld) [#/Vol] 229 10*3/uL Normal 150-450 [facility] Comment on above: Performed By: #### L 500.2500, L100.0100 ####[facility] [address] [place], [address] RBC (Bld) [#/Vol] 2.99 10*6/uL Low 4.2-5.4 [facility] Comment on above: Performed By: #### L 500.2500, L100.0100 ####[facility] [address] [place], [address] RDW SD 45.0 fl High 35.1-43.9 [facility] Comment on above: Performed By: #### L 500.2500, L100.0100 ####[facility] [address] [place], [address] WBC (Bld) [#/Vol] 11.0 10*3/uL Normal 4.4-11.0 [facility] Comment on above: Performed By: #### L 500.2500, L100.0100 ####[facility] [address] [place], [address] Calcium [Mass/Vol]Ordered By : He Cat on 01-06-2025 Serum or plasma calcium measurement (mass/volume) 8.9 mg/dL 7.6-11.0 [facility] Carbon dioxide, total [Moles /volume] in Central venous bloodOrdered By: He Cat on 01-06-2025 CO2 [Moles/Vol] 21.1 mmol/L 21.0-32.0 [facility] Carbon dioxide, total [Moles/volume] in Central venous blood 21.1 mmol/L 21.0-32.0 [facility] Chloride assayOrdered By: Sarbjit Cat on 01-06-2025 Chloride [Moles/Vol] 101 mmol/L 98-108 [facility] Chloride assay 101 mmol/L 98-108 [facility] Creatinine [Mass/Vol]Ordered By: He Cat on 01-06-2025 Serum creatinine measurement (mass/volume) 3.23 mg/dL High 0.70-1.20 [facility] Discharge Instructionon Discharge Instruction Normal [facility] Eosinophil percentageOrdered By: He Cat on 01-06-2025 Eosinophils/100 WBC (Bld) 0.1 % 0-5 [facility] Eosinophil percentage 0.1 % 0-1 [facility] Erythrocyte distribution wid th (RBC) [Entitic vol]Ordered By: He Cat on 01-06-2025 Erythrocyte distribution width standard deviation 45.0 fl High 35.1-43.9 [facility] Erythrocyte distribution wid th (RBC) [Ratio]Ordered By: He Cat on 01-06-2025 Erythrocyte distribution width ratio 13.0 % 11.6-14.6 [facility] Erythrocyte distribution wid th ratioOrdered By: He Cat on 01-06-2025 Erythrocyte distribution width (RBC) [Ratio] 13.0 % 11.6-14.6 [facility] Erythrocyte distribution wid th standard deviationOrdered By: He Cat on 01-06-2025 Erythrocyte distribution width (RBC) [Ratio] 45.0 fl High 35.1-43.9 [facility] Estimation of creatinine abdulkadir aranceOrdered By: He Cat on 01-06-2025 Estimation of creatinine clearance 12.75 ml/min Low 50-250 [facility] GFR/1.73 sq M.predicted kris g non-blacks MDRD (S/P/Bld) [Vol rate/Area]Ordered By: He Cat on 01-06-2025 Glomerular filtration rate (GFR) estimation/1.73 sq m using serum, plasma, or whole b 15 Low >60 [facility] Glomerular filtration rate ( GFR) estimation/1.73 sq m using serum, plasma, or whole bOrdered By: He Cat on 01-06-2025 GFR/1.73 sq M.predicted among non-blacks MDRD (S/P/Bld) [Vol rate/Area] 15 mL/min/{1.73_m2} Low >60 [facility] Glucose [Mass/Vol]Ordered By : He Cat on 01-06-2025 Serum glucose measurement (mass/volume) 337 mg/dL High 70-99 [facility] Glucose measurement at bedsi deOrdered By: He Cat on 01-06-2025 Glucose [Mass/Vol] 374 mg/dL High 74-106 [facility] Glucose measurement at bedside 374 mg/dL High 74-106 [facility] Hematocrit Auto (Bld) [Volum e fraction]Ordered By: He Cat on 01-06-2025 Hematocrit (Bld) [Volume fraction] 28.8 % Low 37-47 [facility] Automated blood hematocrit (percentage) 28.8 % Low 37-47 [facility] Hemoglobin measurementOrdere d By: He Cat on 01-06-2025 Hemoglobin (Bld) [Mass/Vol] 9.1 g/dL Low 12.0-15.0 [facility] Hemoglobin measurement 9.1 g/dL Low 12.0-15.0 [facility] Immature granulocytes/100 WB C Auto (Bld)Ordered By: He Cat on 01-06-2025 Immature granulocytes/100 WBC (Bld) 1.000 % High 0.0-0.9 [facility] Automated immature granulocyte percentage 1.000 % High 0.0-0.9 [facility] Lymphocytes Auto (Unsp spec) [#/Vol]Ordered By: He Cat on 01-06-2025 Absolute lymphocyte count 0.66 X10^3/uL Low 0.83-4.51 [facility] Lymphocytes/100 WBC Auto (Un sp spec)Ordered By: He Cat on 01-06-2025 Automated lymphocyte count as percentage of total leukocytes 6.0 % Low 19-41 [facility] MCV (RBC) [Entitic vol]Order ed By: He Cat on 01-06-2025 MCV (mean corpuscular volume) determination 96.3 fL 81-99 [facility] MCV (mean corpuscular volume ) determinationOrdered By: He Cat on 01-06-2025 MCV (RBC) [Entitic vol] 96.3 fL 81-99 [facility] Mean corpuscular hemoglobin (MCH) determinationOrdered By: He Cat on 01-06-2025 MCH (RBC) [Entitic mass] 30.4 pg 27.0-32.0 [facility] Mean corpuscular hemoglobin (MCH) determination 30.4 pg 27.0-32.0 [facility] Mean corpuscular hemoglobin concentration (MCHC) determinationOrdered By: He Cat on 01-06-2025 Mean corpuscular hemoglobin concentration (MCHC) determination 31.6 g/dL Low 32-36 [facility] Mean platelet volume determi nationOrdered By: He Cat on 01-06-2025 Mean platelet volume determination 9.8 fl 6.2-12.0 [facility] Monocyte percentageOrdered B y: He Cat on 01-06-2025 Monocytes/100 WBC (Bld) 4.8 % 0-10 [facility] Monocyte percentage 4.8 % 0-10 [facility] Neutrophil percentageOrdered By: He Cat on 01-06-2025 Neutrophils/100 WBC (Bld) 88.0 % High 47-70 [facility] Neutrophil percentage 88.0 % High 47-70 [facility] Nucleated red blood cell per centageOrdered By: He Cat on 01-06-2025 Nucleated red blood cell percentage 0 % 0-5 [facility] Platelet countOrdered By: Sarbjit Cat on 01-06-2025 Platelets (Bld) [#/Vol] 229 10*3/uL 150-450 [facility] Platelet count 229 K/mm3 150-450 [facility] Potassium (Unsp spec) [Mass/ Vol]Ordered By: He Cat on 01-06-2025 Potassium measurement (mass/volume) 5.6 mmol/L High 3.3-5.1 [facility] Potassium measurement (mass/ volume)Ordered By: He Cat on 01-06-2025 Potassium (Unsp spec) [Mass/Vol] 5.6 mmol/L High 3.3-5.1 [facility] RBC Auto (Bld) [#/Vol]Ordere d By: He Cat on 01-06-2025 RBC (Bld) [#/Vol] 2.99 10*6/uL Low 4.2-5.4 [facility] Automated blood erythrocyte count 2.99 M/mm3 Low 4.2-5.4 [facility] Serum creatinine measurement (mass/volume)Ordered By: eH Cat on 01-06-2025 Creatinine [Mass/Vol] 3.23 mg/dL High 0.70-1.20 [facility] Serum glucose measurement (m ass/volume)Ordered By: He Cat on 01-06-2025 Glucose [Mass/Vol] 337 mg/dL High 70-99 [facility] Serum or plasma calcium lesly urement (mass/volume)Ordered By: He Cat on 01-06-2025 Calcium [Mass/Vol] 8.9 mg/dL 7.6-11.0 [facility] Serum or plasma urea nitroge n measurement (mass/volume)Ordered By: He Cat on 01-06-2025 Urea nitrogen [Mass/Vol] 42 mg/dL High 02-19 [facility] Sodium levelOrdered By: Samantha Cat on 01-06-2025 Sodium [Moles/Vol] 134 mmol/L 133-145 [facility] Sodium level 134 mmol/L 133-145 [facility] Urea nitrogen [Mass/Vol]Orde red By: He Cat on 01-06-2025 Serum or plasma urea nitrogen measurement (mass/volume) 42 mg/dL High - [facility] White blood cell (WBC) count Ordered By: He Cat on 01-06-2025 WBC (Bld) [#/Vol] 11.0 10*3/uL 4.4-11.0 [facility] White blood cell (WBC) count 11.0 K/mm3 4.4-11.0 [facility] [facility] Albumin [Mass/Vol]Ordered By : Christy Huerta on 01-05-2025 Serum or plasma albumin measurement (mass/volume) 3.4 g/dL 3.4-4.8 [facility] Arterial patency Wrist arter y --pre arterial punctureOrdered By: He Cat on 01-05-2025 Assessment of wrist artery patency prior to arterial puncture Positive [facility] Assessment of wrist artery p atency prior to arterial punctureOrdered By: He Cat on 01-05-2025 Arterial patency Wrist artery --pre arterial puncture Positive [facility] Base excess Calc (BldV) [Mol es/Vol]Ordered By: He Cat on 01-05-2025 Blood base excess determination -1 mmol/L -2-2 [facility] Bedside Glucoseon 01-05-2025 FINGERSTICK GLU 338 mg/dL High [address] [place] [address] Comment on above: Result Comment: SHELLY GEMENT OF PATIENT CARE PER NURSING PROTOCOL Performed By: #### L 501.080 ####[facility] [address] [place], [address] FINGERSTICK GLU 292 mg/dL High [address] [place] [address] Comment on above: Result Comment: SHELLY GEMENT OF PATIENT CARE PER NURSING PROTOCOL Performed By: #### L 501.080 ####[facility] [address] [place], [address] FINGERSTICK GLU 419 mg/dL High [address] [place] [address] Comment on above: Result Comment: SHELLY GEMENT OF PATIENT CARE PER NURSING PROTOCOL Performed By: #### L 501.080 ####[facility] [address] [place], [address] FINGERSTICK GLU 286 mg/dL High [address] [place] [address] Comment on above: Result Comment: SHELLY GEMENT OF PATIENT CARE PER NURSING PROTOCOL Performed By: #### L 501.080 ####[facility] [address] [place], [address] Blood Gases by CPSon 025 TINY TEST Positive Normal [facility] Comment on above: Performed By: #### L 9000.0800 ####[facility] [address] [place], [address] Base excess Calc (Bld) [Moles/Vol] -1 mmol/L Normal -2 to +2 [facility] Comment on above: Performed By: #### L 9000.0800 ####[facility] [address] [place], [address] Blood Gas Type ART Normal [facility] Comment on above: Performed By: #### L 9000.0800 ####[facility] [address] [place], [address] Comment Normal [facility] Comment on above: Result Comment: Bipa p settings of IPAP 18, EPAP 8, fio2 30 % Performed By: #### L 9000.0800 ####[facility] [address] [place], [address] FI02 30.0 Normal [facility] Comment on above: Performed By: #### L 9000.0800 ####[facility] [address] [place], [address] Mode Not entered Normal [facility] Comment on above: Performed By: #### L 9000.0800 ####[facility] [address] [place], [address] O2 Delivery Dev BiPAP Normal [facility] Comment on above: Performed By: #### L 9000.0800 ####[facility] [address] [place], [address] pCO2 55.0 mmHg High 35-45 [facility] Comment on above: Performed By: #### L 9000.0800 ####[facility] [address] [place], [address] pH (Bld) 7.28 [pH] Low 7.35-7.45 [facility] Comment on above: Performed By: #### L 9000.0800 ####[facility] [address] [place], [address] PO2 87 mmHG Normal 75-100 [facility] Comment on above: Performed By: #### L 9000.0800 ####[facility] [address] [place], [address] SITE L Radial Normal [facility] Comment on above: Performed By: #### L 9000.0800 ####[facility] [address] [place], [address] SO2 95 Normal 95-99 [facility] Comment on above: Performed By: #### L 9000.0800 ####[facility] [address] [place], [address] Blood base excess determinat ionOrdered By: He Cat on 01-05-2025 Base excess Calc (BldV) [Moles/Vol] -1 mmol/L -2-2 [facility] Blood bicarbonate measuremen tOrdered By: He Cat on 01-05-2025 HCO3 (Bld) [Moles/Vol] 25.6 mmol/L Normal - [facility] Comment on above: Performed By: #### L 9000.0800 ####[facility] [address] [place], [address] Blood bicarbonate measurement 25.6 mmol/L - [facility] CBC-Complete Blood Cnt No Di ffon 01-05-2025 Erythrocyte distribution width (RBC) [Ratio] 12.9 % Normal 11.6-14.6 [facility] Comment on above: Performed By: #### L 500.3600, L100.0500 ####[facility] [address] [place], [address] Hematocrit (Bld) [Volume fraction] 29.6 % Low 37-47 [facility] Comment on above: Performed By: #### L 500.3600, L100.0500 ####[facility] [address] [place], [address] Hemoglobin (Bld) [Mass/Vol] 9.4 g/dL Low 12.0-15.0 [facility] Comment on above: Performed By: #### L 500.3600, L100.0500 ####[facility] [address] [place], [address] MCH (RBC) [Entitic mass] 30.3 pg Normal 27.0-32.0 [facility] Comment on above: Performed By: #### L 500.3600, L100.0500 ####[facility] [address] [place], [address] MCHC (RBC) [Mass/Vol] 31.8 g/dL Low 32-36 [facility] Comment on above: Performed By: #### L 500.3600, L100.0500 ####[facility] [address] [place], [address] MCV (RBC) [Entitic vol] 95.5 fL Normal 81-99 [facility] Comment on above: Performed By: #### L 500.3600, L100.0500 ####[facility] [address] [place], [address] Platelet mean volume (Bld) [Entitic vol] 10.0 fL Normal 6.2-12.0 [facility] Comment on above: Performed By: #### L 500.3600, L100.0500 ####[facility] [address] [place], [address] Platelets (Bld) [#/Vol] 235 10*3/uL Normal 150-450 [facility] Comment on above: Performed By: #### L 500.3600, L100.0500 ####[facility] [address] [place], [address] RBC (Bld) [#/Vol] 3.10 10*6/uL Low 4.2-5.4 [facility] Comment on above: Performed By: #### L 500.3600, L100.0500 ####[facility] [address] [place], [address] RDW SD 44.2 fl High 35.1-43.9 [facility] Comment on above: Performed By: #### L 500.3600, L100.0500 ####[facility] [address] [place], [address] WBC (Bld) [#/Vol] 10.5 10*3/uL Normal 4.4-11.0 [facility] Comment on above: Performed By: #### L 500.3600, L100.0500 ####[facility] [address] [place], [address] Consultation - Intensiviston 01-05-2025 Consultation - Retail Office Manager Normal [facility] Determination of fraction of inspired oxygenOrdered By: He Cat on 01-05-2025 Determination of fraction of inspired oxygen 30.0 [facility] HbA1c (Bld) [Mass fraction]O rdered By: He Cat on 01-05-2025 Hemoglobin A1c percentage 6.6 % >5.7 [facility] Hemoglobin A1con 01-05-2025 HbA1c (Bld) [Mass fraction] 6.6 % Normal <=5.6 [facility] Comment on above: Performed By: #### L 501.9985 ####[facility] [address] [place], [address] Hemoglobin A1c percentageOrd ered By: He Cat on 01-05-2025 HbA1c (Bld) [Mass fraction] 6.6 % >5.7 [facility] L509.7001on 01-05-2025 Procalcitonin 2.31 ng/mL High <=0.10 [facility] Comment on above: Result Comment: Inte rpretation:<0.10-0.25 ng/mL: Antibiotic therapy discouraged. Bacterialinfection unlikely.0.25-0.50 ng/mL: Antibiotic therapy encouraged. Bacterialinfection possible.>0.50 ng/mL: Antibiotic therapy strongly encouraged.Suggestive of presence of bacterial infection.PCT should always be interpreted in the clinical context ofthe patient. Therefore, clinicians should use the PCTresults in conjunction with other laboratory findings andclinical signs of the patient. Performed By: #### L 509.7008 ####[facility] [address] [place], [place], [id number] Measurement, pHOrdered By: Isabelle Cat on 01-05-2025 pH (Unsp spec) 7.28 [pH] Low 7.35-7.45 [facility] No Panel InformationOrdered By: He Cat on 01-05-2025 ART [facility] L Radial [facility] Not entered [facility] BiPAP [facility] See comment [facility] No Panel InformationOrdered By: Terrance Alva on 01-05-2025 2.31 ng/mL High <0.11 [facility] Oxygen saturation measuremen tOrdered By: He Cat on 01-05-2025 Oxygen saturation measurement 95 % 95-99 [facility] Partial pressure of carbon d ioxide measurementOrdered By: He Cat on 01-05-2025 Partial pressure of carbon dioxide measurement 55.0 mmHg High 35-45 [facility] Partial pressure of oxygen m easurementOrdered By: He Cat on 01-05-2025 Partial pressure of oxygen measurement 87 mmHG 75-100 [facility] RESPIRATORY PANEL MOLECULARo n 01-05-2025 RP PANEL Normal [facility] Comment on above: Performed By: #### M 100.638 ####[facility] [address] [place], [place], [id number] Renal Profileon 01-05-2025 Albumin [Mass/Vol] 3.4 g/dL Normal 3.4-4.8 [facility] Comment on above: Performed By: #### L 368.4460, L100.0500 ####[facility] [address] [place], [address] BUN/CRE 10.7 RATIO Normal 10-20 [facility] Comment on above: Performed By: #### L 500.3600, L100.0500 ####[facility] [address] [place], [address] Calcium [Mass/Vol] 9.2 mg/dL Normal 7.6-11.0 [facility] Comment on above: Performed By: #### L 500.3600, L100.0500 ####[facility] [address] [place], [address] Chloride [Moles/Vol] 95 mmol/L Low 98-108 [facility] Comment on above: Performed By: #### L 500.3600, L100.0500 ####[facility] [address] [place], [address] CO2 [Moles/Vol] 23.6 mmol/L Normal 21.0-32.0 [facility] Comment on above: Performed By: #### L 500.3600, L100.0500 ####[facility] [address] [place], [address] Creatinine [Mass/Vol] 3.67 mg/dL High 0.70-1.20 [facility] Comment on above: Performed By: #### L 500.3600, L100.0500 ####[facility] [address] [place], [address] ECRCL 11.77 ml/min Low 50-250 [facility] Comment on above: Performed By: #### L 500.3600, L100.0500 ####[facility] [address] [place], [address] GAP 11 Normal 5-15 [facility] Comment on above: Performed By: #### L 500.3600, L100.0500 ####[facility] [address] [place], [address] GFR/1.73 sq M.predicted among non-blacks MDRD (S/P/Bld) [Vol rate/Area] 13 mL/min/{1.73_m2} Low >60 [facility] Comment on above: Result Comment: mL/m in/1.73m2 CKD-EPI Creatinine Equation (2020) Performed By: #### L 500.3600, L100.0500 ####[facility] [address] [place], [address] Glucose [Mass/Vol] 301 mg/dL High 70-99 [facility] Comment on above: Performed By: #### L 500.3600, L100.0500 ####[facility] [address] [place], [address] Potassium [Moles/Vol] 6.1 mmol/L Invalid Interpretation Code 3.3-5.1 [facility] Comment on above: Result Comment: Crit ical Result(s) Called at 01/05/2025-09:34 by Kalia Tong??Results read back by same. Performed By: #### L 500.3600, L100.0500 ####[facility] [address] [place], [address] Sodium [Moles/Vol] 130 mmol/L Low 133-145 [facility] Comment on above: Performed By: #### L 500.3600, L100.0500 ####[facility] [address] [place], [address] Urea nitrogen [Mass/Vol] 39 mg/dL High 4-19 [facility] Comment on above: Performed By: #### L 500.3600, L100.0500 ####[facility] [address] [place], [address] Respiratory pathogens detect ion panel by molecular detection methodOrdered By: Terrance Alva on 01-05-2025 Respiratory pathogens DNA and RNA panel MARISA+probe (Resp) [facility] Serum or plasma albumin lesly urement (mass/volume)Ordered By: Christy Huerta on 01-05-2025 Albumin [Mass/Vol] 3.4 g/dL 3.4-4.8 [facility] Serum or plasma vancomycin m easurement (mass/volume)Ordered By: He Cat on 01-05-2025 Vancomycin [Mass/Vol] 15.1 ug/mL High 0.0-15.0 [facility] Serum phosphorus measurement Ordered By: Christy Huerta on 01-05-2025 Serum phosphorus measurement 4.3 mg/dL 2.7-4.5 [facility] Total carbon dioxide measure mentOrdered By: He Cat on 01-05-2025 CO2 [Moles/Vol] 27 mmol/L Normal [facility] Comment on above: Performed By: #### L 9000.0800 ####[facility] [address] [place], [address] Total carbon dioxide measurement 27 mmol/L [facility] Vancomycin [Mass/Vol]Ordered By: He Cat on 01-05-2025 Serum or plasma vancomycin measurement (mass/volume) 15.1 ug/mL High 0.0-15.0 [facility] Vancomycin, Random Levelon 0 01-05-2025 VANCO, RANDOM 15.1 ug/mL High 0.0-15.0 [facility] Comment on above: Order Comment: Comme nts: BEFORE HEMODIALYSIS Result Comment: VANC OMYCIN STANDARD DRUG THERAPY: CRITICAL VALUE IS > 15.0 mg/LVANCOMYCIN HIGH INTENSITY THERAPY: CRITICAL VALUE IS > 20.0 mg/LPLEASE CONTACT PHARMACY SERVICES (#2023) FOR INTERPRETATIONOF RESULTS. THIS RESULT DOES NOT REPRESENT A PEAK OR TROUGHLEVEL FOR THIS DRUG. Performed By: #### L 501.8850 ####[facility] [address] [place], [address] pH (Unsp spec)Ordered By: Sarbjit Cat on 01-05-2025 Measurement, pH 7.28 Low 7.35-7.45 [facility] Basic Metabolic Profile (BMP )on 01-04-2025 BUN/CRE 9.2 RATIO Low 10-20 [facility] Comment on above: Performed By: #### L 100.0100, L500.2500 ####[facility] [address] [place], [address] Calcium [Mass/Vol] 9.8 mg/dL Normal 7.6-11.0 [facility] Comment on above: Performed By: #### L 100.0100, L500.2500 ####[facility] [address] [place], [address] Chloride [Moles/Vol] 94 mmol/L Low 98-108 [facility] Comment on above: Performed By: #### L 100.0100, L500.2500 ####[facility] [address] [place], [address] CO2 [Moles/Vol] 26.9 mmol/L Normal 21.0-32.0 [facility] Comment on above: Performed By: #### L 100.0100, L500.2500 ####[facility] [address] [place], [address] Creatinine [Mass/Vol] 4.27 mg/dL High 0.70-1.20 [facility] Comment on above: Performed By: #### L 100.0100, L500.2500 ####[facility] [address] [place], [address] ECRCL 10.41 ml/min Low 50-250 [facility] Comment on above: Performed By: #### L 100.0100, L500.2500 ####[facility] [address] [place], [address] GAP 8 Normal 5-15 [facility] Comment on above: Performed By: #### L 100.0100, L500.2500 ####[facility] [address] [place], [address] GFR/1.73 sq M.predicted among non-blacks MDRD (S/P/Bld) [Vol rate/Area] 11 mL/min/{1.73_m2} Low >60 [facility] Comment on above: Result Comment: mL/m in/1.73m2 CKD-EPI Creatinine Equation (2020) Performed By: #### L 100.0100, L500.2500 ####[facility] [address] [place], [address] Glucose [Mass/Vol] 256 mg/dL High 70-99 [facility] Comment on above: Performed By: #### L 100.0100, L500.2500 ####[facility] [address] [place], [address] Potassium [Moles/Vol] 5.4 mmol/L High 3.3-5.1 [facility] Comment on above: Performed By: #### L 100.0100, L500.2500 ####[facility] [address] [place], [address] Sodium [Moles/Vol] 129 mmol/L Low 133-145 [facility] Comment on above: Performed By: #### L 100.0100, L500.2500 ####[facility] [address] [place], [address] Urea nitrogen [Mass/Vol] 39 mg/dL High 4-19 [facility] Comment on above: Performed By: #### L 100.0100, L500.2500 ####[facility] [address] [place], [address] Bedside Glucoseon 01-04-2025 FINGERSTICK GLU 308 mg/dL High 74-106 [facility] Comment on above: Result Comment: SHELLY ENGEL OF PATIENT CARE PER NURSING PROTOCOL Performed By: #### L 501.080 ####[facility] [address] [place], [address] FINGERSTICK GLU 133 mg/dL High 74-106 [facility] Comment on above: Result Comment: SHELLY GEMENT OF PATIENT CARE PER NURSING PROTOCOL Performed By: #### L 501.080 ####[facility] [address] [place], [address] FINGERSTICK GLU 282 mg/dL High 74-106 [facility] Comment on above: Result Comment: SHELLY GEMENT OF PATIENT CARE PER NURSING PROTOCOL Performed By: #### L 501.080 ####[facility] [address] [place], [address] FINGERSTICK GLU 37 mg/dL Invalid Interpretation Code [address] [place] [address] Comment on above: Result Comment: [facility] familia GivenMANAGEMENT OF PATIENT CARE PER NURSING PROTOCOL Performed By: #### L 501.080 ####[facility] [address] [place], [address] FINGERSTICK GLU 33 mg/dL Invalid Interpretation Code [address] [place] [address] Comment on above: Result Comment: [facility] familia GivenMANAGEMENT OF PATIENT CARE PER NURSING PROTOCOL Performed By: #### L 501.080 ####[facility] [address] [place], [address] FINGERSTICK GLU 303 mg/dL High -106 [facility] Comment on above: Result Comment: SHELLY GEMENT OF PATIENT CARE PER NURSING PROTOCOL Performed By: #### L 501.080 ####[facility] [address] [place], [address] FINGERSTICK GLU 188 mg/dL High [address] [place] [address] Comment on above: Result Comment: SHELLY GEMENT OF PATIENT CARE PER NURSING PROTOCOL Performed By: #### L 501.080 ####[facility] [address] [place], [address] FINGERSTICK GLU 132 mg/dL High -106 [facility] Comment on above: Result Comment: SHELLY GEMENT OF PATIENT CARE PER NURSING PROTOCOL Performed By: #### L 501.080 ####[facility] [address] [place], [address] FINGERSTICK GLU 153 mg/dL High -106 [facility] Comment on above: Result Comment: SHELLY GEMENT OF PATIENT CARE PER NURSING PROTOCOL Performed By: #### L 501.080 ####[facility] [address] [place], [address] FINGERSTICK GLU 173 mg/dL High -106 [facility] Comment on above: Result Comment: SHELLY GEMENT OF PATIENT CARE PER NURSING PROTOCOL Performed By: #### L 501.080 ####[facility] [address] [place], [address] FINGERSTICK GLU 251 mg/dL High -[address] [place] [address] Comment on above: Result Comment: SHELLY GEMENT OF PATIENT CARE PER NURSING PROTOCOL Performed By: #### L 501.080 ####[facility] [address] [place], [address] FINGERSTICK GLU 244 mg/dL High [address] [place] [address] Comment on above: Result Comment: SHELLY GEMENT OF PATIENT CARE PER NURSING PROTOCOL Performed By: #### L 501.080 ####[facility] [address] [place], [address] FINGERSTICK GLU 170 mg/dL High 74-106 [facility] Comment on above: Result Comment: SHELLY GEMENT OF PATIENT CARE PER NURSING PROTOCOL Performed By: #### L 501.080 ####[facility] [address] [place], [address] [facility] 025 TINY TEST Positive Normal [facility] Comment on above: Performed By: #### L 9000.0800 ####[facility] [address] [place], [address] Base excess Calc (Bld) [Moles/Vol] 7 mmol/L High -2 to +2 [facility] Comment on above: Performed By: #### L 9000.0800 ####[facility] [address] [place], [address] Blood Gas Type ART Normal [facility] Comment on above: Performed By: #### L 9000.0800 ####[facility] [address] [place], [address] CO2 [Moles/Vol] 36 mmol/L Normal [facility] Comment on above: Performed By: #### L 9000.0800 ####[facility] [address] [place], [address] Comment Normal [facility] Comment on above: Result Comment: Bipa p settings of 15/8 rate of 12, fio2 30% Performed By: #### L 9000.0800 ####[facility] [address] [place], [address] FI02 30.0 Normal [facility] Comment on above: Performed By: #### L 9000.0800 ####[facility] [address] [place], [address] HCO3 (Bld) [Moles/Vol] 33.3 mmol/L High 22-26 [facility] Comment on above: Performed By: #### L 9000.0800 ####[facility] [address] [place], [address] Mode Not entered Normal [facility] Comment on above: Performed By: #### L 9000.0800 ####[facility] [address] [place], [address] O2 Delivery Dev BiPAP Normal [facility] Comment on above: Performed By: #### L 9000.0800 ####[facility] [address] [place], [address] pCO2 71.6 mmHg Invalid Interpretation Code 35-45 [facility] Comment on above: Performed By: #### L 9000.0800 ####[facility] [address] [place], [address] pH (Bld) 7.28 [pH] Low 7.35-7.45 [facility] Comment on above: Performed By: #### L 9000.0800 ####[facility] [address] [place], [address] PO2 69 mmHG Low 75-100 [facility] Comment on above: Performed By: #### L 9000.0800 ####[facility] [address] [place], [address] Read Back By Yes Normal [facility] Comment on above: Performed By: #### L 9000.0800 ####[facility] [address] [place], [address] SITE % Normal [facility] Comment on above: Performed By: #### L 9000.0800 ####[facility] [address] [place], [address] SO2 90 Low 95-99 [facility] Comment on above: Performed By: #### L 9000.0800 ####[facility] [address] [place], [address] TINY TEST Positive Normal [facility] Comment on above: Performed By: #### L 9000.0800 ####[facility] [address] [place], [address] Base excess Calc (Bld) [Moles/Vol] 4 mmol/L High -2 to +2 [facility] Comment on above: Performed By: #### L 9000.0800 ####[facility] [address] [place], [address] Blood Gas Type ART Normal [facility] Comment on above: Performed By: #### L 8999.0800 ####[facility] [address] [place], [address] CO2 [Moles/Vol] 34 mmol/L Normal [facility] Comment on above: Performed By: #### L 8999.0800 ####[facility] [address] [place], [address] FI02 3.0 Normal [facility] Comment on above: Performed By: #### L 8999.0800 ####[facility] [address] [place], [address] HCO3 (Bld) [Moles/Vol] 31.3 mmol/L High 22-26 [facility] Comment on above: Performed By: #### L 8999.0800 ####[facility] [address] [place], [address] Mode Not entered Normal [facility] Comment on above: Performed By: #### L 8999.0800 ####[facility] [address] [place], [address] O2 Delivery Dev Cannula Normal [facility] Comment on above: Performed By: #### L 8999.0800 ####[facility] [address] [place], [address] pCO2 72.6 mmHg Invalid Interpretation Code 35-45 [facility] Comment on above: Performed By: #### L 8999.0800 ####[facility] [address] [place], [address] pH (Bld) 7.24 [pH] Low 7.35-7.45 [facility] Comment on above: Performed By: #### L 8999.0800 ####[facility] [address] [place], [address] PO2 86 mmHG Normal 75-100 [facility] Comment on above: Performed By: #### L 9000.0800 ####[facility] [address] [place], [address] Read Back By Yes Normal [facility] Comment on above: Performed By: #### L 9000.0800 ####[facility] [address] [place], [address] Results To pradeep Normal [facility] Comment on above: Performed By: #### L 9000.0800 ####[facility] [address] [place], [address] SITE L Radial Normal [facility] Comment on above: Performed By: #### L 9000.0800 ####[facility] [address] [place], [address] SO2 94 Low 95-99 [facility] Comment on above: Performed By: #### L 9000.0800 ####[facility] [address] [place], [address] Time Given 10:46:25 Normal [facility] Comment on above: Performed By: #### L 9000.0800 ####[facility] [address] [place], [address] CBC W/Diff, Automatedon 03-0 4-2024 Absolute Lymph 2.60 X10 3/uL Normal 0.83-4.51 [facility] Comment on above: Performed By: #### L 100.0100, L500.2500 ####[facility] [address] [place], [address] Absolute Neut 7.4 X10 3/uL Normal 2.0-7.7 [facility] Comment on above: Performed By: #### L 100.0100, L500.2500 ####[facility] [address] [place], [address] Basophils/100 WBC (Bld) 0.6 % Normal 0-1 [facility] Comment on above: Performed By: #### L 100.0100, L500.2500 ####[facility] [address] [place], [address] Eosinophils/100 WBC (Bld) 6.4 % High 0-5 [facility] Comment on above: Performed By: #### L 100.0100, L500.2500 ####[facility] [address] [place], [address] Erythrocyte distribution width (RBC) [Ratio] 12.5 % Normal 11.6-14.6 [facility] Comment on above: Performed By: #### L 100.0100, L500.2500 ####[facility] [address] [place], [address] Hematocrit (Bld) [Volume fraction] 29.7 % Low 37-47 [facility] Comment on above: Performed By: #### L 100.0100, L500.2500 ####[facility] [address] [place], [address] Hemoglobin (Bld) [Mass/Vol] 9.2 g/dL Low 12.0-15.0 [facility] Comment on above: Performed By: #### L 100.0100, L500.2500 ####[facility] [address] [place], [address] IG% 0.400 Normal 0.0-0.9 [facility] Comment on above: Result Comment: IG% - Immature Granulocytes (promyelocytes, myelocytes andmetamyelocytes) > 1% indicates that a LEFT SHIFT is Present. Performed By: #### L 100.0100, L500.2500 ####[facility] [address] [place], [address] Lymphocytes/100 WBC (Bld) 21.5 % Normal 19-41 [facility] Comment on above: Performed By: #### L 100.0100, L500.2500 ####[facility] [address] [place], [address] MCH (RBC) [Entitic mass] 30.3 pg Normal 27.0-32.0 [facility] Comment on above: Performed By: #### L 100.0100, L500.2500 ####[facility] [address] [place], [address] MCHC (RBC) [Mass/Vol] 31.0 g/dL Low 32-36 [facility] Comment on above: Performed By: #### L 100.0100, L500.2500 ####[facility] [address] [place], [address] MCV (RBC) [Entitic vol] 97.7 fL Normal 81-99 [facility] Comment on above: Performed By: #### L 100.0100, L500.2500 ####[facility] [address] [place], [address] Monocytes/100 WBC (Bld) 10.2 % High 0-10 [facility] Comment on above: Performed By: #### L 100.0100, L500.2500 ####[facility] [address] [place], [address] Neutrophils/100 WBC (Bld) 60.9 % Normal 47-70 [facility] Comment on above: Performed By: #### L 100.0100, L500.2500 ####[facility] [address] [place], [address] Nucleated RBC (Bld) [#/Vol] 0 10*3/uL Normal 0-5 [facility] Comment on above: Performed By: #### L 100.0100, L500.2500 ####[facility] [address] [place], [address] Platelet mean volume (Bld) [Entitic vol] 9.5 fL Normal 6.2-12.0 [facility] Comment on above: Performed By: #### L 100.0100, L500.2500 ####[facility] [address] [place], [address] Platelets (Bld) [#/Vol] 227 10*3/uL Normal 150-450 [facility] Comment on above: Performed By: #### L 100.0100, L500.2500 ####[facility] [address] [place], [address] RBC (Bld) [#/Vol] 3.04 10*6/uL Low 4.2-5.4 [facility] Comment on above: Performed By: #### L 100.0100, L500.2500 ####[facility] [address] [place], [address] RDW SD 44.8 fl High 35.1-43.9 [facility] Comment on above: Performed By: #### L 100.0100, L500.2500 ####[facility] [address] [place], [address] WBC (Bld) [#/Vol] 12.1 10*3/uL High 4.4-11.0 [facility] Comment on above: Performed By: #### L 100.0100, L500.2500 ####[facility] [address] [place], [address] Consultation - Nephrologyon 01-04-2025 Consultation - Nephrology Normal [facility] Influenza virus A and B and SARS-CoV-2 (COVID-19) and Respiratory syncytial virus RNAOrdered By: He Cat on 01-04-2025 SARS-CoV-2 (COVID-19) RNA MARISA+probe Ql (Unsp spec) [facility] M100.678on 01-04-2025 M100.678 Pending SARS-CoV-2 (COVID 19) Negative INFLUENZA A Negative INFLUENZA B Negative RSV PCR Negative Normal [facility] Comment on above: Performed By: #### M 100.678 ####[facility] [address] [place], [address] M8200.1000on 01-04-2025 M8200.1000 Normal Reference Ran ge = Negative [employer]iance 360Xpert Instrument, PCR method MRSA PCR MRSA NEGATIVE Normal [facility] Comment on above: Performed By: #### M 8200.1000 ####[facility] [address] [place], [address] Nasal methicillin resistant Staphylococcus aureus (MRSA) DNA detection by PCROrdered By: He Cat on 01-04-2025 MRSA DNA MARISA+probe Ql (Nose) [facility] No Panel InformationOrdered By: He Cat on 01-04-2025 Yes [facility] 10:46:25 [facility] 12 Lead EKGon 01-03-2025 12 Lead EKG Normal [facility] Basic Metabolic Profile (BMP )on 01-03-2025 BUN/CRE 9.0 RATIO Low 10-20 [facility] Comment on above: Performed By: #### L 500.2500, L100.0100 ####[facility] [address] [place], [address] Calcium [Mass/Vol] 9.2 mg/dL Normal 7.6-11.0 [facility] Comment on above: Performed By: #### L 500.2500, L100.0100 ####[facility] [address] [place], [address] Chloride [Moles/Vol] 95 mmol/L Low 98-108 [facility] Comment on above: Performed By: #### L 500.2500, L100.0100 ####[facility] [address] [place], [address] CO2 [Moles/Vol] 32.3 mmol/L High 21.0-32.0 [facility] Comment on above: Performed By: #### L 500.2500, L100.0100 ####[facility] [address] [place], [address] Creatinine [Mass/Vol] 4.48 mg/dL High 0.70-1.20 [facility] Comment on above: Performed By: #### L 500.2500, L100.0100 ####[facility] [address] [place], [address] ECRCL 11.50 ml/min Low 50-250 [facility] Comment on above: Performed By: #### L 500.2500, L100.0100 ####[facility] [address] [place], [address] GAP 5 Normal 5-15 [facility] Comment on above: Performed By: #### L 500.2500, L100.0100 ####[facility] [address] [place], [address] GFR/1.73 sq M.predicted among non-blacks MDRD (S/P/Bld) [Vol rate/Area] 10 mL/min/{1.73_m2} Low >60 [facility] Comment on above: Result Comment: mL/m in/1.73m2 CKD-EPI Creatinine Equation (2020) Performed By: #### L 500.2500, L100.0100 ####[facility] [address] [place], [address] Glucose [Mass/Vol] 158 mg/dL High 70-99 [facility] Comment on above: Performed By: #### L 500.2500, L100.0100 ####[facility] [address] [place], [address] Potassium [Moles/Vol] 5.8 mmol/L High 3.3-5.1 [facility] Comment on above: Result Comment: Hemo lysis present, Results??could be affected.?? Performed By: #### L 500.2500, L100.0100 ####[facility] [address] [place], [address] Sodium [Moles/Vol] 133 mmol/L Normal 133-145 [facility] Comment on above: Performed By: #### L 500.2500, L100.0100 ####[facility] [address] [place], [address] Urea nitrogen [Mass/Vol] 40 mg/dL High 4-19 [facility] Comment on above: Performed By: #### L 500.2500, L100.0100 ####[facility] [address] [place], [address] CBC W/Diff, Automatedon 03-0 -2024 Absolute Lymph 1.39 X10 3/uL Normal 0.83-4.51 [facility] Comment on above: Performed By: #### L 500.2500, L100.0100 ####[facility] [address] [place], [address] Absolute Neut 6.3 X10 3/uL Normal 2.0-7.7 [facility] Comment on above: Performed By: #### L 500.2500, L100.0100 ####[facility] [address] [place], [address] Basophils/100 WBC (Bld) 0.6 % Normal 0-1 [facility] Comment on above: Performed By: #### L 500.2500, L100.0100 ####[facility] [address] [place], [address] Eosinophils/100 WBC (Bld) 7.0 % High 0-5 [facility] Comment on above: Performed By: #### L 500.2500, L100.0100 ####[facility] [address] [place], [address] Erythrocyte distribution width (RBC) [Ratio] 12.4 % Normal 11.6-14.6 [facility] Comment on above: Performed By: #### L 500.2500, L100.0100 ####[facility] [address] [place], [address] Hematocrit (Bld) [Volume fraction] 31.8 % Low 37-47 [facility] Comment on above: Performed By: #### L 500.2500, L100.0100 ####[facility] [address] [place], [address] Hemoglobin (Bld) [Mass/Vol] 10.1 g/dL Low 12.0-15.0 [facility] Comment on above: Performed By: #### L 500.2500, L100.0100 ####[facility] [address] [place], [address] IG% 0.400 Normal 0.0-0.9 [facility] Comment on above: Result Comment: IG% - Immature Granulocytes (promyelocytes, myelocytes andmetamyelocytes) > 1% indicates that a LEFT SHIFT is Present. Performed By: #### L 500.2500, L100.0100 ####[facility] [address] [place], [address] Lymphocytes/100 WBC (Bld) 15.0 % Low 19-41 [facility] Comment on above: Performed By: #### L 500.2500, L100.0100 ####[facility] [address] [place], [address] MCH (RBC) [Entitic mass] 30.4 pg Normal 27.0-32.0 [facility] Comment on above: Performed By: #### L 500.2500, L100.0100 ####[facility] [address] [place], [address] MCHC (RBC) [Mass/Vol] 31.8 g/dL Low 32-36 [facility] Comment on above: Performed By: #### L 500.2500, L100.0100 ####[facility] [address] [place], [address] MCV (RBC) [Entitic vol] 95.8 fL Normal 81-99 [facility] Comment on above: Performed By: #### L 500.2500, L100.0100 ####[facility] [address] [place], [address] Monocytes/100 WBC (Bld) 8.8 % Normal 0-10 [facility] Comment on above: Performed By: #### L 500.2500, L100.0100 ####[facility] [address] [place], [address] Neutrophils/100 WBC (Bld) 68.2 % Normal 47-70 [facility] Comment on above: Performed By: #### L 500.2500, L100.0100 ####[facility] [address] [place], [address] Nucleated RBC (Bld) [#/Vol] 0 10*3/uL Normal 0-5 [facility] Comment on above: Performed By: #### L 500.2500, L100.0100 ####[facility] [address] [place], [address] Platelet mean volume (Bld) [Entitic vol] 9.5 fL Normal 6.2-12.0 [facility] Comment on above: Performed By: #### L 500.2500, L100.0100 ####[facility] [address] [place], [address] Platelets (Bld) [#/Vol] 228 10*3/uL Normal 150-450 [facility] Comment on above: Performed By: #### L 500.2500, L100.0100 ####[facility] [address] [place], [address] RBC (Bld) [#/Vol] 3.32 10*6/uL Low 4.2-5.4 [facility] Comment on above: Performed By: #### L 500.2500, L100.0100 ####[facility] [address] [place], [address] RDW SD 43.1 fl Normal 35.1-43.9 [facility] Comment on above: Performed By: #### L 500.2500, L100.0100 ####[facility] [address] [place], [address] WBC (Bld) [#/Vol] 9.3 10*3/uL Normal 4.4-11.0 [facility] Comment on above: Performed By: #### L 500.2500, L100.0100 ####[facility] [address] [place], [address] Chest PA and Lateralon 01-03 Chest PA and Lateral Normal [facility] Emergency Department Summary on 01-03-2025 Emergency Department Summary Normal [facility] 12-30-2024 CNPN Telephone (TXCTGL) SANDY DENG ([id number]) 1960 F Date Time Provider Department 12/30/24 KIDNEY TXP COORDINATORS [facility] During your visit today, we recorded the following information about you: [place] James 12/30/2024 11:06 AM Signed Called and spoke with the patient in regards to kidney transplant referral, she states she started the process with [facility], and would like to go through the process at that center, as one center is enough to go through testings, and appointments. Advised the patient if she changes her mind, provided her with our office phone number, referral ended, and she verbalized understanding. 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 The correct phone number is [phone]. Allergies As of Date: 12/29/2024 Noted Allergy Reaction environmental [Other] 03/23/2009 Date Reviewed: 04/02/2012 Reviewed by: Dominga Garza (Rn), RN - Fully Assessed Reason for Visit: Referral - Kidney Txp [[id number]] Prescriptions as of 12/29/2024 - promethazine (PHENERGAN) [...] Status:Closed by OTILIA PORTILLO on 12/29/24 Normal [facility] Bedside Glucoseon 12-28-2024 FINGERSTICK GLU 207 mg/dL High 74-106 [facility] Comment on above: Result Comment: SHELLY GEMENT OF PATIENT CARE PER NURSING PROTOCOL Performed By: #### L 501.080 ####[facility] [address] [place], [address] FINGERSTICK GLU 166 mg/dL High 74-106 [facility] Comment on above: Result Comment: SHELLY GEMENT OF PATIENT CARE PER NURSING PROTOCOL Performed By: #### L 501.080 ####[facility] [address] [place], [address] FINGERSTICK GLU 135 mg/dL High 74-106 [facility] Comment on above: Result Comment: SHELLY GEMENT OF PATIENT CARE PER NURSING PROTOCOL Performed By: #### L 501.080 ####[facility] [address] [place], [address] Discharge Instructionon 12-05 Discharge Instruction Normal [facility] Glucose measurement at [facility]air[facility] deOrdered By: Favian Sinclair on 12-28-2024 Glucose [Mass/Vol] 207 mg/dL High 74-106 [facility] Glucose measurement at bedside 207 mg/dL High 74-106 [facility] MR/POSTOP.ANEon 12-28-2024 MR/POSTOP.ANE Normal [facility] MR/QWOFTIAQ3lx 12-28-2024 MR/POSTOPAN2 Normal [facility] Operative Reporton Operative Report Normal [facility] Basic Metabolic Profile (BMP )on 12-25-2024 BUN/CRE 6.9 RATIO Low 10-20 [facility] Comment on above: Performed By: #### L 500.2500, L100.0500 ####[facility] [address] [place], [address] CA,Total 9.0 mg/dL Normal 8.5-10.1 [facility] Comment on above: Performed By: #### L 500.2500, L100.0500 ####[facility] [address] [place], [address] Chloride [Moles/Vol] 96 mmol/L Low 98-107 [facility] Comment on above: Performed By: #### L 500.2500, L100.0500 ####[facility] [address] [place], [address] CO2 [Moles/Vol] 35.0 mmol/L High 21.0-32.0 [facility] Comment on above: Performed By: #### L 500.2500, L100.0500 ####[facility] [address] [place], [address] Creatinine [Mass/Vol] 3.19 mg/dL High 0.55-1.02 [facility] Comment on above: Result Comment: The validity of the calculated GFR GFRAA in patients over70 years has not been determined. Clinical correlation isessential. Performed By: #### L 500.2500, L100.0500 ####[facility] [address] [place], [address] EST GFR - AA 19 mL/min Low >60 [facility] Comment on above: Result Comment: Afri can [place] GFR Calc Performed By: #### L 500.2500, L100.0500 ####[facility] [address] [place], [address] GAP 3 Low 5-15 [facility] Comment on above: Performed By: #### L 500.2500, L100.0500 ####[facility] [address] [place], [address] GFR/1.73 sq M.predicted among non-blacks MDRD (S/P/Bld) [Vol rate/Area] 16 mL/min/{1.73_m2} Low >60 [facility] Comment on above: Result Comment: Non- GFR Calc Performed By: #### L 500.2500, L100.0500 ####[facility] [address] [place], [address] Glucose [Mass/Vol] 212 mg/dL High 74-106 [facility] Comment on above: Result Comment: Gluc ose result greater than or equal to 200 mg/dLsuggests DIABETES MELLITUS per A.D.A. criteria. Performed By: #### L 500.2500, L100.0500 ####[facility] [address] [place], [address] Potassium [Moles/Vol] 4.0 mmol/L Normal 3.5-5.1 [facility] Comment on above: Performed By: #### L 500.2500, L100.0500 ####[facility] [address] [place], [address] Sodium [Moles/Vol] 134 mmol/L Low 136-145 [facility] Comment on above: Performed By: #### L 500.2500, L100.0500 ####[facility] [address] [place], [address] Urea nitrogen [Mass/Vol] 22 mg/dL High 7-18 [facility] Comment on above: Performed By: #### L 500.2500, L100.0500 ####[facility] [address] [place], [address] Blood urea nitrogen (BUN)/cr eatinine ratioOrdered By: Favian Sinclair on 12-25-2024 Blood urea nitrogen (BUN)/creatinine ratio 6.9 RATIO Low 10-20 [facility] CBC-Complete Blood Cnt No Di ffon 12-25-2024 Erythrocyte distribution width (RBC) [Ratio] 12.4 % Normal 11.6-14.6 [facility] Comment on above: Performed By: #### L 500.2500, L100.0500 ####[facility] [address] [place], [address] Hematocrit (Bld) [Volume fraction] 33.1 % Low 37-47 [facility] Comment on above: Performed By: #### L 500.2500, L100.0500 ####[facility] [address] [place], [address] Hemoglobin (Bld) [Mass/Vol] 10.6 g/dL Low 12.0-15.0 [facility] Comment on above: Performed By: #### L 500.2500, L100.0500 ####[facility] [address] [place], [address] MCH (RBC) [Entitic mass] 30.1 pg Normal 27.0-32.0 [facility] Comment on above: Performed By: #### L 500.2500, L100.0500 ####[facility] [address] [place], [address] MCHC (RBC) [Mass/Vol] 32.0 g/dL Normal 32-36 [facility] Comment on above: Performed By: #### L 500.2500, L100.0500 ####[facility] [address] [place], [address] MCV (RBC) [Entitic vol] 94.0 fL Normal 81-99 [facility] Comment on above: Performed By: #### L 500.2500, L100.0500 ####[facility] [address] [place], [address] Platelet mean volume (Bld) [Entitic vol] 9.4 fL Normal 6.2-12.0 [facility] Comment on above: Performed By: #### L 500.2500, L100.0500 ####[facility] [address] [place], [address] Platelets (Bld) [#/Vol] 220 10*3/uL Normal 150-450 [facility] Comment on above: Performed By: #### L 500.2500, L100.0500 ####[facility] [address] [place], [address] RBC (Bld) [#/Vol] 3.52 10*6/uL Low 4.2-5.4 [facility] Comment on above: Performed By: #### L 500.2500, L100.0500 ####[facility] [address] [place], [address] RDW SD 42.8 fl Normal 35.1-43.9 [facility] Comment on above: Performed By: #### L 500.2500, L100.0500 ####[facility] [address] [place], [address] WBC (Bld) [#/Vol] 7.7 10*3/uL Normal 4.4-11.0 [facility] Comment on above: Performed By: #### L 500.2500, L100.0500 ####[facility] [address] [place], [address] Calcium [Mass/Vol]Ordered By : Favian Sinclair on 12-25-2024 Serum or plasma calcium measurement (mass/volume) 9.0 mg/dL 8.5-10.1 [facility] Carbon dioxide measurementOr dered By: Favian Sinclair on 12-25-2024 CO2 [Moles/Vol] 35.0 mmol/L High 21.0-32.0 [facility] Carbon dioxide measurement 35.0 mmol/L High 21.0-32.0 [facility] Chloride measurementOrdered By: Favian Sinclair on 12-25-2024 Chloride [Moles/Vol] 96 mmol/L Low 98-107 [facility] Chloride measurement 96 mmol/L Low 98-107 [facility] Creatinine [Mass/Vol]Ordered By: Favian Sinclair on 12-25-2024 Serum or plasma creatinine measurement (mass/volume) 3.19 mg/dL High 0.55-1.02 [facility] Erythrocyte distribution wid th (RBC) [Entitic vol]Ordered By: Favian Sinclair on 12-25-2024 Erythrocyte distribution width standard deviation 42.8 fl 35.1-43.9 [facility] Erythrocyte distribution wid th (RBC) [Ratio]Ordered By: Favian Sinclair on 12-25-2024 Erythrocyte distribution width ratio 12.4 % 11.6-14.6 [facility] Erythrocyte distribution wid th ratioOrdered By: Favianchance Sinclair on 12-25-2024 Erythrocyte distribution width (RBC) [Ratio] 12.4 % 11.6-14.6 [facility] Erythrocyte distribution wid th standard deviationOrdered By: Favian Sinclair on 12-25-2024 Erythrocyte distribution width (RBC) [Ratio] 42.8 fl 35.1-43.9 [facility] Estimated glomerular filtrat ion rate (GFR) AmericanOrdered By: Favian Sinclair on 12-25-2024 Estimated glomerular filtration rate (GFR) 19 mL/min Low >60 [facility] Glomerular filtration rate ( GFR) estimationOrdered By: Favian Sinclair 12-25-2024 GFR/1.73 sq M.predicted among non-blacks MDRD (S/P/Bld) [Vol rate/Area] 16 mL/min/{1.73_m2} Low >60 [facility] Glomerular filtration rate (GFR) estimation 16 mL/min Low >60 [facility] Glucose measurementOrdered B y: Favian Sinclair on 12-25-2024 Glucose [Mass/Vol] 212 mg/dL High 74-106 [facility] Glucose measurement 212 mg/dL High 74-106 [facility] Hematocrit Auto (Bld) [Volum e fraction]Ordered By: Favian Sinclair 12-25-2024 Hematocrit (Bld) [Volume fraction] 33.1 % Low 37-47 [facility] Automated blood hematocrit (percentage) 33.1 % Low 37-47 [facility] Hemoglobin measurementOrdere d By: Favian Sinclair on 12-25-2024 Hemoglobin (Bld) [Mass/Vol] 10.6 g/dL Low 12.0-15.0 [facility] Hemoglobin measurement 10.6 g/dL Low 12.0-15.0 [facility] MCV (RBC) [Entitic vol]Order ed By: Favian Sinclair on 12-25-2024 MCV (mean corpuscular volume) determination 94.0 fL 81-99 [facility] MCV (mean corpuscular volume ) determinationOrdered By: Favian Sinclair on 12-25-2024 MCV (RBC) [Entitic vol] 94.0 fL 81-99 [facility] Mean corpuscular hemoglobin (MCH) determinationOrdered By: Favian Sinclair on 12-25-2024 MCH (RBC) [Entitic mass] 30.1 pg 27.0-32.0 [facility] Mean corpuscular hemoglobin (MCH) determination 30.1 pg 27.0-32.0 [facility] Mean corpuscular hemoglobin concentration (MCHC) determinationOrdered By: Favian Sinclair on 12-25-2024 Mean corpuscular hemoglobin concentration (MCHC) determination 32.0 g/dL 32-36 [facility] Mean platelet volume determi nationOrdered By: Favian Sinclair on 12-25-2024 Mean platelet volume determination 9.4 fl 6.2-12.0 [facility] Platelet countOrdered By: Shreyas Sinclair on 12-25-2024 Platelets (Bld) [#/Vol] 220 10*3/uL 150-450 [facility] Platelet count 220 K/mm3 150-450 [facility] Potassium measurementOrdered By: Favian Sinclair on 12-25-2024 Potassium [Moles/Vol] 4.0 mmol/L 3.5-5.1 [facility] Potassium measurement 4.0 mmol/L 3.5-5.1 [facility] RBC Auto (Bld) [#/Vol]Ordere d By: Favian Sinclair on 12-25-2024 RBC (Bld) [#/Vol] 3.52 10*6/uL Low 4.2-5.4 [facility] Automated blood erythrocyte count 3.52 M/mm3 Low 4.2-5.4 [facility] Serum anion gap measurementO rdered By: Favian Sinclair on 12-25-2024 Serum anion gap measurement 3 Low 5-15 [facility] Serum or plasma calcium lesly urement (mass/volume)Ordered By: Favian Sinclair on 12-25-2024 Calcium [Mass/Vol] 9.0 mg/dL 8.5-10.1 [facility] Serum or plasma creatinine m easurement (mass/volume)Ordered By: Favian Sinclair on 12-25-2024 Creatinine [Mass/Vol] 3.19 mg/dL High 0.55-1.02 [facility] Serum or plasma urea nitroge n measurement (mass/volume)Ordered By: Favian iSnclair on 12-25-2024 Urea nitrogen [Mass/Vol] 22 mg/dL High 7-18 [facility] Sodium levelOrdered By: Favian Sinclair on 12-25-2024 Sodium [Moles/Vol] 134 mmol/L Low 136-145 [facility] Sodium level 134 mmol/L Low 136-145 [facility] Urea nitrogen [Mass/Vol]Orde red By: Favian Sinclair on 12-25-2024 Serum or plasma urea nitrogen measurement (mass/volume) 22 mg/dL High 7-18 [facility] White blood cell (WBC) count Ordered By: Favian Sinclair on 12-25-2024 WBC (Bld) [#/Vol] 7.7 10*3/uL 4.4-11.0 [facility] White blood cell (WBC) count 7.7 K/mm3 4.4-11.0 [facility] CNPNon 12-24-2024 CNPN Telephone (TXCTGL) SANDY DENG ([id number]) 1960 F Date Time Provider Department 12/24/24 KIDNEY TXP COORDINATORS TXCTGL During your visit [...] Reason for Visit: Referral - Kidney Txp [[id number]] Prescriptions as of 12/24/2024 - promethazine (PHENERGAN) [...] Status:Closed by [place] JAMES on 12/24/24 Normal [facility] MR/PAT.ANEon 12-20-2024 MR/PAT.ANE Normal [facility] Echo Completeon 12-17-2024 Echo Complete Normal [facility] Cardiology Visit Reporton Cardiology Visit Report Normal [facility] MR/PAT.ANEon 12-15-2024 MR/PAT.ANE Normal [facility] MR/PAT.ANEon 12-14-2024 MR/PAT.ANE Normal [facility] MR/BMS.BVSon 12-02-2024 MR/BMS.BVS Normal [facility] 12 Lead EKGon 11-20-2024 12 Lead EKG Normal [facility] 12 Lead EKG Normal [facility] ALP [Catalytic activity/Vol] Ordered By: Alex Kaur on 11-20-2024 Serum or plasma alkaline phosphatase measurement 71 U/L 45-117 [facility] ALT [Catalytic activity/Vol] Ordered By: Alex Kaur on 11-20-2024 Serum or plasma alanine aminotransferase (ALT) measurement 17 U/L 13-56 [facility] Absolute neutrophil countOrd ered By: Alex Kaur on 11-20-2024 Absolute neutrophil count 4.4 X10^3/uL 2.0-7.7 [facility] Albumin [Mass/Vol]Ordered By : Alex Kaur on 11-20-2024 Serum or plasma albumin measurement (mass/volume) 2.9 g/dL Low 3.2-5.0 [facility] Albumin to globulin ratioOrd ered By: Alex Kaur on 11-20-2024 Albumin to globulin ratio 0.9 RATIO 0.9-2.4 [facility] Basophil percentageOrdered B y: Alex Kaur on 11-20-2024 Basophil percentage 0.6 % 0-1 [facility] Bilirubin, totalOrdered By: Aelx Kaur on 11-20-2024 Bilirubin, total 0.30 mg/dL 0.20-1.00 [facility] Blood urea nitrogen (BUN)/cr eatinine ratioOrdered By: Alex Kaur on 11-20-2024 Blood urea nitrogen (BUN)/creatinine ratio 8.1 RATIO Low 10-20 [facility] CBC W/Diff, Automatedon 11-03 Absolute Lymph 1.88 X10 3/uL Normal 0.83-4.51 [facility] Comment on above: Performed By: #### L 500.4050, L100.0100 ####[facility] [address] [place], [address] Absolute Neut 4.4 X10 3/uL Normal 2.0-7.7 [facility] Comment on above: Performed By: #### L 500.4050, L100.0100 ####[facility] [address] [place], [address] Basophils/100 WBC (Bld) 0.6 % Normal 0-1 [facility] Comment on above: Performed By: #### L 500.4050, L100.0100 ####[facility] [address] [place], [address] Eosinophils/100 WBC (Bld) 7.6 % High 0-5 [facility] Comment on above: Performed By: #### L 500.4050, L100.0100 ####[facility] [address] [place], [address] Erythrocyte distribution width (RBC) [Ratio] 12.6 % Normal 11.6-14.6 [facility] Comment on above: Performed By: #### L 500.4050, L100.0100 ####[facility] [address] [place], [address] Hematocrit (Bld) [Volume fraction] 35.8 % Low 37-47 [facility] Comment on above: Performed By: #### L 500.4050, L100.0100 ####[facility] [address] [place], [address] Hemoglobin (Bld) [Mass/Vol] 11.5 g/dL Low 12.0-15.0 [facility] Comment on above: Performed By: #### L 500.4050, L100.0100 ####[facility] [address] [place], [address] IG% 0.500 Normal 0.0-0.9 [facility] Comment on above: Result Comment: IG% - Immature Granulocytes (promyelocytes, myelocytes andmetamyelocytes) > 1% indicates that a LEFT SHIFT is Present. Performed By: #### L 500.4050, L100.0100 ####[facility] [address] [place], [address] Lymphocytes/100 WBC (Bld) 24.4 % Normal 19-41 [facility] Comment on above: Performed By: #### L 500.4050, L100.0100 ####[facility] [address] [place], [address] MCH (RBC) [Entitic mass] 30.4 pg Normal 27.0-32.0 [facility] Comment on above: Performed By: #### L 500.4050, L100.0100 ####[facility] [address] [place], [address] MCHC (RBC) [Mass/Vol] 32.1 g/dL Normal 32-36 [facility] Comment on above: Performed By: #### L 500.4050, L100.0100 ####[facility] [address] [place], [address] MCV (RBC) [Entitic vol] 94.7 fL Normal 81-99 [facility] Comment on above: Performed By: #### L 500.4050, L100.0100 ####[facility] [address] [place], [address] Monocytes/100 WBC (Bld) 9.7 % Normal 0-10 [facility] Comment on above: Performed By: #### L 500.4050, L100.0100 ####[facility] [address] [place], [address] Neutrophils/100 WBC (Bld) 57.2 % Normal 47-70 [facility] Comment on above: Performed By: #### L 500.4050, L100.0100 ####[facility] [address] [place], [address] Nucleated RBC (Bld) [#/Vol] 0 10*3/uL Normal 0-5 [facility] Comment on above: Performed By: #### L 500.4050, L100.0100 ####[facility] [address] [place], [address] Platelet mean volume (Bld) [Entitic vol] 9.1 fL Normal 6.2-12.0 [facility] Comment on above: Performed By: #### L 500.4050, L100.0100 ####[facility] [address] [place], [address] Platelets (Bld) [#/Vol] 193 10*3/uL Normal 150-450 [facility] Comment on above: Performed By: #### L 500.4050, L100.0100 ####[facility] [address] [place], [address] RBC (Bld) [#/Vol] 3.78 10*6/uL Low 4.2-5.4 [facility] Comment on above: Performed By: #### L 500.4050, L100.0100 ####[facility] [address] [place], [address] RDW SD 42.2 fl Normal 35.1-43.9 [facility] Comment on above: Performed By: #### L 500.4050, L100.0100 ####[facility] [address] [place], [address] WBC (Bld) [#/Vol] 7.7 10*3/uL Normal 4.4-11.0 [facility] Comment on above: Performed By: #### L 500.4050, L100.0100 ####[facility] [address] [place], [address] Calcium [Mass/Vol]Ordered By : Alex Kaur on 11-20-2024 Serum or plasma calcium measurement (mass/volume) 9.3 mg/dL 8.5-10.1 [facility] Carbon dioxide measurementOr dered By: Alex Kaur on 11-20-2024 Carbon dioxide measurement 33.0 mmol/L High 21.0-32.0 [facility] Chest 1 View (Portable)on Chest 1 View (Portable) Normal [facility] Chloride measurementOrdered By: Alex Kaur on 11-20-2024 Chloride measurement 102 mmol/L 98-107 [facility] Comprehensive Metabolic Prof ilon 11-20-2024 Albumin [Mass/Vol] 2.9 g/dL Low 3.2-5.0 [facility] Comment on above: Performed By: #### L 500.4050, L100.0100 ####[facility] [address] [place], [address] Albumin/Globulin [Mass ratio] 0.9 {ratio} Normal 0.9-2.4 [facility] Comment on above: Performed By: #### L 500.4050, L100.0100 ####[facility] [address] [place], [address] ALK P 71 U/L Normal 45-117 [facility] Comment on above: Performed By: #### L 500.4050, L100.0100 ####[facility] [address] [place], [address] ALT [Catalytic activity/Vol] 17 U/L Normal 13-56 [facility] Comment on above: Performed By: #### L 500.4050, L100.0100 ####[facility] [address] [place], [address] AST [Catalytic activity/Vol] 14 U/L Low 15-37 [facility] Comment on above: Performed By: #### L 500.4050, L100.0100 ####[facility] [address] [place], [address] Bilirubin [Mass/Vol] 0.30 mg/dL Normal 0.20-1.00 [facility] Comment on above: Result Comment: For patients on eltrombopag therapy, use of Dimension Leggett TBIL is not recommended. Performed By: #### L 500.4050, L100.0100 ####[facility] [address] [place], [address] BUN/CRE 8.1 RATIO Low 10-20 [facility] Comment on above: Performed By: #### L 500.4050, L100.0100 ####[facility] [address] [place], [address] CA,Total 9.3 mg/dL Normal 8.5-10.1 [facility] Comment on above: Performed By: #### L 500.4050, L100.0100 ####[facility] [address] [place], [address] Chloride [Moles/Vol] 102 mmol/L Normal 98-107 [facility] Comment on above: Performed By: #### L 500.4050, L100.0100 ####[facility] [address] [place], [address] CO2 [Moles/Vol] 33.0 mmol/L High 21.0-32.0 [facility] Comment on above: Performed By: #### L 500.4050, L100.0100 ####[facility] [address] [place], [address] Creatinine [Mass/Vol] 2.85 mg/dL High 0.55-1.02 [facility] Comment on above: Result Comment: The validity of the calculated GFR GFRAA in patients over70 years has not been determined. Clinical correlation isessential. Performed By: #### L 500.4050, L100.0100 ####[facility] [address] [place], [address] ECRCL 15.85 ml/min Normal [facility] Comment on above: Performed By: #### L 500.4050, L100.0100 ####[facility] [address] [place], [address] EST GFR - AA 21 mL/min Low >60 [facility] Comment on above: Result Comment: Afri can [place] GFR Calc Performed By: #### L 500.4050, L100.0100 ####[facility] [address] [place], [address] GAP 2 Low 5-15 [facility] Comment on above: Performed By: #### L 500.4050, L100.0100 ####[facility] [address] [place], [address] GFR/1.73 sq M.predicted among non-blacks MDRD (S/P/Bld) [Vol rate/Area] 18 mL/min/{1.73_m2} Low >60 [facility] Comment on above: Result Comment: Non- GFR Calc Performed By: #### L 500.4050, L100.0100 ####[facility] [address] [place], [address] Globulin (S) [Mass/Vol] 3.4 g/dL Normal 2.2-4.2 [facility] Comment on above: Performed By: #### L 500.4050, L100.0100 ####[facility] [address] [place], [address] Glucose [Mass/Vol] 105 mg/dL Normal 74-106 [facility] Comment on above: Result Comment: Fast ing Glucose result from 100 to 125 mg/dLsuggests IMPAIRED HOMEOSTASIS per A.D.A. criteria. Performed By: #### L 500.4050, L100.0100 ####[facility] [address] [place], [address] Potassium [Moles/Vol] 4.4 mmol/L Normal 3.5-5.1 [facility] Comment on above: Performed By: #### L 500.4050, L100.0100 ####[facility] [address] [place], [address] Sodium [Moles/Vol] 137 mmol/L Normal 136-145 [facility] Comment on above: Performed By: #### L 500.4050, L100.0100 ####[facility] [address] [place], [address] T PROT 6.3 g/dL Low 6.4-8.2 [facility] Comment on above: Performed By: #### L 500.4050, L100.0100 ####[facility] [address] [place], [address] Urea nitrogen [Mass/Vol] 23 mg/dL High 7-18 [facility] Comment on above: Performed By: #### L 500.4050, L100.0100 ####[facility] [address] [place], [address] Creatinine [Mass/Vol]Ordered By: Alex Kaur on 11-20-2024 Serum or plasma creatinine measurement (mass/volume) 2.85 mg/dL High 0.55-1.02 [facility] Emergency Department Summary on 11-20-2024 Emergency Department Summary Normal [facility] Eosinophil percentageOrdered By: Alex Kaur on 11-20-2024 Eosinophil percentage 7.6 % High 0-5 [facility] Erythrocyte distribution wid th (RBC) [Entitic vol]Ordered By: Alex Kaur on 11-20-2024 Erythrocyte distribution width standard deviation 42.2 fl 35.1-43.9 [facility] Erythrocyte distribution wid th (RBC) [Ratio]Ordered By: Alex Kaur on 11-20-2024 Erythrocyte distribution width ratio 12.6 % 11.6-14.6 [facility] Estimated glomerular filtrat ion rate (GFR) AmericanOrdered By: Alex Kaur on 11-20-2024 Estimated glomerular filtration rate (GFR) 21 mL/min Low >60 [facility] Estimation of creatinine abdulkadir aranceOrdered By: Alex Kaur on 11-20-2024 Estimation of creatinine clearance 15.85 ml/min [facility] Glomerular filtration rate ( GFR) estimationOrdered By: Alex Kaur on 11-20-2024 Glomerular filtration rate (GFR) estimation 18 mL/min Low >60 [facility] Glucose measurementOrdered B y: Alex Kaur on 11-20-2024 Glucose measurement 105 mg/dL 74-106 [facility] Hematocrit Auto (Bld) [Volum e fraction]Ordered By: Alex Kaur on 11-20-2024 Automated blood hematocrit (percentage) 35.8 % Low 37-47 [facility] Hemoglobin measurementOrdere d By: Alex Kaur on 11-20-2024 Hemoglobin measurement 11.5 g/dL Low 12.0-15.0 [facility] Immature granulocytes/100 WB C Auto (Bld)Ordered By: Alex Kaur on 11-20-2024 Automated immature granulocyte percentage 0.500 % 0.0-0.9 [facility] L501.4020on 11-20-2024 TROPONIN-I HS 108 pg/mL High 3.0-54.0 [facility] Comment on above: Order Comment: 'TROP ' Serial specimen #1, #2 or #3: 2 Result Comment: Ry adhikari Note: New Test Units and Gender Specific Reference Ranges. For more information see Policy Stat Procedure Leggett High Sensitivity Troponin (TNIH) and attachments. Performed By: #### L 501.4024 ####[facility] [address] [place], [place], [id number] TROPONIN-I HS 113 pg/mL High 3.0-54.0 [facility] Comment on above: Order Comment: 'TROP ' Serial specimen #1, #2 or #3: 1 Result Comment: Ry adhikari Note: New Test Units and Gender Specific Reference Ranges. For more information see Policy Stat Procedure Leggett High Sensitivity Troponin (TNIH) and attachments. Performed By: #### L 501.4020 ####[facility] [address] [place], [address] Lymphocytes Auto (Unsp spec) [#/Vol]Ordered By: Alex Kaur on 11-20-2024 Absolute lymphocyte count 1.88 X10^3/uL 0.83-4.51 [facility] Lymphocytes/100 WBC Auto (Un sp spec)Ordered By: Alex Kaur on 11-20-2024 Automated lymphocyte count as percentage of total leukocytes 24.4 % 19-41 [facility] MCV (RBC) [Entitic vol]Order ed By: Alex Kaur on 11-20-2024 MCV (mean corpuscular volume) determination 94.7 fL 81-99 [facility] Mean corpuscular hemoglobin (MCH) determinationOrdered By: Alex Kaur on 11-20-2024 Mean corpuscular hemoglobin (MCH) determination 30.4 pg 27.0-32.0 [facility] Mean corpuscular hemoglobin concentration (MCHC) determinationOrdered By: Alex Kaur on 11-20-2024 Mean corpuscular hemoglobin concentration (MCHC) determination 32.1 g/dL 32-36 [facility] Mean platelet volume determi nationOrdered By: Alex Kaur on 11-20-2024 Mean platelet volume determination 9.1 fl 6.2-12.0 [facility] Monocyte percentageOrdered B y: Alex Kaur on 11-20-2024 Monocyte percentage 9.7 % 0-10 [facility] Neutrophil percentageOrdered By: Alex Kaur on 11-20-2024 Neutrophil percentage 57.2 % 47-70 [facility] No Panel InformationOrdered By: Alex Kaur on 11-20-2024 14 U/L Low 15-37 [facility] Nucleated red blood cell per centageOrdered By: Alex Kaur on 11-20-2024 Nucleated red blood cell percentage 0 % 0-5 [facility] Platelet countOrdered By: Benton Kaur on 11-20-2024 Platelet count 193 K/mm3 150-450 [facility] Potassium measurementOrdered By: Alex Kaur on 11-20-2024 Potassium measurement 4.4 mmol/L 3.5-5.1 [facility] RBC Auto (Bld) [#/Vol]Ordere d By: Alex Kaur on 11-20-2024 Automated blood erythrocyte count 3.78 M/mm3 Low 4.2-5.4 [facility] Serum anion gap measurementO rdered By: Alex Kaur on 11-20-2024 Serum anion gap measurement 2 Low 5-15 [facility] Serum globulin measurementOr dered By: Alex Kaur on 11-20-2024 Serum globulin measurement 3.4 g/dL 2.2-4.2 [facility] Sodium levelOrdered By: Alex Kaur on 11-20-2024 Sodium level 137 mmol/L 136-145 [facility] Total proteinOrdered By: Brooke Kaur on 11-20-2024 Total protein 6.3 g/dL Low 6.4-8.2 [facility] Troponin IOrdered By: Alex vidales on 11-20-2024 Troponin I 108 pg/mL High 3.0-54.0 [facility] Urea nitrogen [Mass/Vol]Orde red By: Alex Kaur on 11-20-2024 Serum or plasma urea nitrogen measurement (mass/volume) 23 mg/dL High 05-20 [facility] White blood cell (WBC) count Ordered By: Alex Kaur on 11-20-2024 White blood cell (WBC) count 7.7 K/mm3 4.4-11.0 [facility] Basic Metabolic Profile (BMP )on 11-04-2024 BUN Normal 05-20 [facility] Comment on above: Order Comment: 1Y Result Comment: PT. DISCHARGED Performed By: #### L 500.2500, L100.0100 ####[facility] [address] [place], [address] BUN/CRE Normal 10-20 [facility] Comment on above: Order Comment: 1Y Result Comment: PT. DISCHARGED Performed By: #### L 500.2500, L100.0100 ####[facility] [address] [place], [address] CA,Total Normal 8.5-10.1 [facility] Comment on above: Order Comment: 1Y Result Comment: PT. DISCHARGED Performed By: #### L 500.2500, L100.0100 ####[facility] [address] [place], [address] CL Normal 98-107 [facility] Comment on above: Order Comment: 1Y Result Comment: PT. DISCHARGED Performed By: #### L 500.2500, L100.0100 ####[facility] [address] [place], [address] CO2 Normal 21.0-32.0 [facility] Comment on above: Order Comment: 1Y Result Comment: PT. DISCHARGED Performed By: #### L 500.2500, L100.0100 ####[facility] [address] [place], [address] CREAT,SERUM Normal 0.55-1.02 [facility] Comment on above: Order Comment: 1Y Result Comment: PT. DISCHARGED Performed By: #### L 500.2500, L100.0100 ####[facility] [address] [place], [address] EST GFR Normal >60 [facility] Comment on above: Order Comment: 1Y Result Comment: PT. DISCHARGED Performed By: #### L 500.2500, L100.0100 ####[facility] [address] [place], [address] EST GFR - AA Normal >60 [facility] Comment on above: Order Comment: 1Y Result Comment: PT. DISCHARGED Performed By: #### L 500.2500, L100.0100 ####[facility] [address] [place], [address] GAP Normal 5-15 [facility] Comment on above: Order Comment: 1Y Result Comment: PT. DISCHARGED Performed By: #### L 500.2500, L100.0100 ####[facility] [address] [place], [address] GLU Normal 74-106 [facility] Comment on above: Order Comment: 1Y Result Comment: PT. DISCHARGED Performed By: #### L 500.2500, L100.0100 ####[facility] [address] [place], [address] Potassium Normal 3.5-5.1 [facility] Comment on above: Order Comment: 1Y Result Comment: PT. DISCHARGED Performed By: #### L 500.2500, L100.0100 ####[facility] [address] [place], [address] Basic Metabolic Profile (BMP) Normal 136-145 [facility] Comment on above: Order Comment: 1Y Result Comment: PT. DISCHARGED Performed By: #### L 500.2500, L100.0100 ####[facility] [address] [place], [address] CBC W/Diff, Automatedon 01-0 2-2024 Absolute Neut Normal 2.0-7.7 [facility] Comment on above: Result Comment: PT D ISCHARGED Performed By: #### L 500.2500, L100.0100 ####[facility] [address] [place], [address] HCT Normal 37-47 [facility] Comment on above: Result Comment: PT D ISCHARGED Performed By: #### L 500.2500, L100.0100 ####[facility] [address] [place], [address] HGB Normal 12.0-15.0 [facility] Comment on above: Result Comment: PT D ISCHARGED Performed By: #### L 500.2500, L100.0100 ####[facility] [address] [place], [address] MCH Normal 27.0-32.0 [facility] Comment on above: Result Comment: PT D ISCHARGED Performed By: #### L 500.2500, L100.0100 ####[facility] [address] [place], [address] MCHC Normal 32-36 [facility] Comment on above: Result Comment: PT D ISCHARGED Performed By: #### L 500.2500, L100.0100 ####[facility] [address] [place], [address] MCV Normal 81-99 [facility] Comment on above: Result Comment: PT D ISCHARGED Performed By: #### L 500.2500, L100.0100 ####[facility] [address] [place], [address] NEUT% Normal 47-70 [facility] Comment on above: Result Comment: PT D ISCHARGED Performed By: #### L 500.2500, L100.0100 ####[facility] [address] [place], [address] PLT Normal 150-450 [facility] Comment on above: Result Comment: PT D ISCHARGED Performed By: #### L 500.2500, L100.0100 ####[facility] [address] [place], [address] RBC Normal 4.2-5.4 [facility] Comment on above: Result Comment: PT D ISCHARGED Performed By: #### L 500.2500, L100.0100 ####[facility] [address] [place], [address] RDW CV Normal 11.6-14.6 [facility] Comment on above: Result Comment: PT D ISCHARGED Performed By: #### L 500.2500, L100.0100 ####[facility] [address] [place], [address] RDW SD Normal 35.1-43.9 [facility] Comment on above: Result Comment: PT D ISCHARGED Performed By: #### L 500.2500, L100.0100 ####[facility] [address] [place], [address] WBC Normal 4.4-11.0 [facility] Comment on above: Result Comment: PT D ISCHARGED Performed By: #### L 500.2500, L100.0100 ####[facility] [address] [place], [address] Pulmonary Visit Reporton Pulmonary Visit Report Normal [facility] Dialysis Vein Map PRE-OP ADEBAYO ATon 11-02-2024 Dialysis Vein Map PRE-OP BILAT Normal [facility] Chest without Contraston Chest without Contrast Normal [facility] Endocrinology Visit Reporton 10-07-2024 Endocrinology Visit Report Normal [facility] Progress Noteon 08-31-2024 Progress Note Patient seen by dc a [facility]. Complete documentation including history with assessment and plan were documented in [facility] EMR. This encounter is for billing only. [facility] Progress Noteon 08-27-2024 Progress Note Patient seen by dc a t [facility]. Complete documentation including history with assessment and plan were documented in [facility] EMR. This encounter is for billing only. [facility] Progress Noteon 08-25-2024 Progress Note Patient seen by dc a t [facility]. Complete documentation including history with assessment and plan were documented in [facility] EMR. This encounter is for billing only. [facility] 30on 08-24-[address] [facility] [id number] 08-24-[id number] [facility] [id number] [facility] [id number] Discharge med list transmitted to REHAB- [facility] for return via [facility] per [facility] request. [facility] [id number] Auth obtained for SR H. SW messaged to set up transport, TELETYPE TELEGRAPHER messaged to send orders and MAR. Normal [facility] BASIC METABOLIC PANELon 10-2 Anion gap [Moles/Vol] 6 mmol/L Normal 3-13 [facility] Comment on above: Performed By: #### L AB113, LAB15, HWU001 ####Assembly Machine Tender: MARY SOTELO ([id number])[facility])[address] [place] [address] Calcium [Mass/Vol] 7.3 mg/dL Low 8.4-10.4 [facility] Comment on above: Performed By: #### L AB113, LAB15, [id number] ####Assembly Machine Tender: MARY SOTELO ([id number])[facility])[address] [place] [address] Chloride [Moles/Vol] 100 mmol/L Normal 98-107 [facility] Comment on above: Performed By: #### L AB113, LAB15, [id number] ####Assembly Machine Tender: MARY SOTELO ([id number])[facility])[address] [place] [address] CO2 [Moles/Vol] 25 mmol/L Normal 22-30 [facility] Comment on above: Performed By: #### L AB113, LAB15, OLT166 ####Assembly Machine Tender: MARY SOTELO ([id number])[facility])[address] [place] [address] Creatinine [Mass/Vol] 2.15 mg/dL High 0.52-1.04 [facility] Comment on above: Performed By: #### L AB113, LAB15, [id number] ####Assembly Machine Tender: MARY SOTELO ([id number])[facility])[address] [place] [address] GLOMERULAR FILTRATION RATE ML/MIN/1.73 SQ M.PREDICTED 25.2 mL/min/1.73m*2 Low >60.0 [facility] Comment on above: Result Comment: Calc ulation based on the Chronic Kidney Disease Epidemiology Collaboration (CKD-EPI) equation refit without adjustment for race Performed By: #### L AB113, LAB15, [id number] ####Assembly Machine Tender: MARY SOTELO ([id number])[facility])[address] [place] [address] Glucose [Mass/Vol] 282 mg/dL High 70-100 [facility] Comment on above: Performed By: #### L AB113, LAB15, [id number] ####Assembly Machine Tender: MARY SOTELO ([id number])[facility])[address] [place] [address] Potassium [Moles/Vol] 3.9 mmol/L Normal 3.5-5.1 [facility] Comment on above: Performed By: #### Dora AB113, LAB15, [id number] ####Assembly Machine Tender: MARY SOTELO ([id number])[facility])[address] [place] [address] Sodium [Moles/Vol] 130 mmol/L Low 135-145 [facility] Comment on above: Performed By: #### Dora AB113, LAB15, [id number] ####Assembly Machine Tender: MARY SOTELO ([id number])[facility])[address] [place] [address] Urea nitrogen [Mass/Vol] 20 mg/dL High 7-17 [facility] Comment on above: Performed By: #### L AB113, LAB15, [id number] ####Assembly Machine Tender: MARY SOTELO ([id number])[facility])[address] [place] [address] Basic metabolic 1998 panelon 08-24-2024 Anion gap [Moles/Vol] 6 mmol/L 3 - 13 mmol/L [facility] Calcium [Mass/Vol] 7.3 mg/dL Low 8.4 - 10. 4 mg/dL [facility] Chloride [Moles/Vol] 100 mmol/L 98 - 10 7 mmol/L [facility] CO2 [Moles/Vol] 25 mmol/L 22 - 30 mmol/L [facility] Creatinine [Mass/Vol] 2.15 mg/dL High 0.52 - 1.04 mg/dL [facility] [employer] GFR/1.73 sq M.predicted (S/P/Bld) [Vol rate/Area] 25.2 mL/min Low - PINF [facility] Glucose [Mass/Vol] 282 mg/dL High 70 - 100 mg/dL [facility] Interpretation and review of laboratory results Abnormal [facility] Potassium [Moles/Vol] 3.9 mmol/L 3.5 - 5.1 mmol/L [facility] Sodium [Moles/Vol] 130 mmol/L Low 135 - 145 mmol/L [facility] Urea nitrogen [Mass/Vol] 20 mg/dL High 7 - 17 mg/dL [facility] CBC W Auto Differential pane l (Bld)on 08-24-2024 Basophils (Bld) [#/Vol] 0 10*3/uL 0.0 - 0.2 10*3/uL [facility] Basophils/100 WBC (Bld) 0.5 % 0.0 - 2.0 % [facility] Eosinophils (Bld) [#/Vol] 0.4 10*3/uL 0.0 - 0.5 10*3/uL [facility] Eosinophils/100 WBC (Bld) 7.2 % High 0.0 - 6.0 % [facility] Erythrocyte distribution width (RBC) [Ratio] 16.3 % High 11.5 - 15.0 % [facility] Hematocrit (Bld) [Volume fraction] 25.5 % Low 35.0 - 47.0 % [facility] Hemoglobin (Bld) [Mass/Vol] 8.2 g/dL Low 11.7 - 16.0 g/dL [facility] [employer] Immature granulocytes (Bld) [#/Vol] 0 10*3/uL NINF - 0.1 10*3/uL [facility] [employer] Immature granulocytes/100 WBC (Bld) 0.3 % 0.0 - 2.0 % [facility] Interpretation and review of laboratory results Abnormal [facility] Lymphocytes (Bld) [#/Vol] 1.1 10*3/uL 1.0 - 4.3 10*3/uL [facility] Lymphocytes/100 WBC (Bld) 18.6 % 15.0 - 45.0 % [facility] MCH (RBC) [Entitic mass] 29.1 pg 26.0 - 34.0 pg [facility] [employer] MCHC (RBC) [Mass/Vol] 32.2 % 30.5 - 36.0 % [facility] [employer] MCV (RBC) [Entitic vol] 90.4 fL 77.0 - 99.0 fL [facility] Monocytes (Bld) [#/Vol] 0.4 10*3/uL 0.0 - 0.9 10*3/uL [facility] Monocytes/100 WBC (Bld) 7.6 % 5.0 - 13.0 % [facility] Neutrophils (Bld) [#/Vol] 3.8 10*3/uL 1.8 - 7.5 10*3/uL [facility] Neutrophils/100 WBC (Bld) 65.8 % 38.0 - 82.0 % [facility] Nucleated RBC/100 WBC (Bld) [Ratio] 0 % [facility] Platelet mean volume (Bld) [Entitic vol] 10.6 fL 9.0 - 12.7 fL [facility] Platelets (Bld) [#/Vol] 198 10*3/uL 140 - 440 10*3/uL [facility] RBC (Bld) [#/Vol] 2.82 10*6/uL Low 3.80 - 5.2 0 10*6/uL [facility] WBC (Bld) [#/Vol] 5.8 10*3/uL 3.6 - 10.7 10*3/uL [facility] CBC WITH AUTO DIFFERENTIALon 08-24-2024 Basophils (Bld) [#/Vol] 0.0 10*3/uL Normal 0.0-0.2 [facility] Comment on above: Performed By: #### L [id number] ####Assembly Machine Tender: MARY SOTELO ([id number])[address] Basophils/100 WBC (Bld) 0.5 % Normal 0.0-2.0 [facility] Comment on above: Performed By: #### L [id number] ####Assembly Machine Tender: MARY SOTELO ([id number])[facility])[address] [place] [address] Eosinophils (Bld) [#/Vol] 0.4 10*3/uL Normal 0.0-0.5 [facility] Comment on above: Performed By: #### L [id number] ####Assembly Machine Tender: MARY SOTELO ([id number])[facility])[address] [place] [address] Eosinophils/100 WBC (Bld) 7.2 % High 0.0-6.0 [facility] Comment on above: Performed By: #### L [id number] ####Assembly Machine Tender: MARY SOTELO ([id number])[facility] [facility])[address] [place] [address] Erythrocyte distribution width (RBC) [Ratio] 16.3 % High 11.5-15.0 [facility] Comment on above: Performed By: #### L [id number] ####Assembly Machine Tender: MARY SOTELO ([id number])[address] Hematocrit (Bld) [Volume fraction] 25.5 % Low 35.0-47.0 [facility] Comment on above: Performed By: #### L [id number] ####Assembly Machine Tender: MARY SOTELO ([id number])[address] Hemoglobin (Bld) [Mass/Vol] 8.2 g/dL Low 11.7-16.0 [facility] Comment on above: Performed By: #### L [id number] ####Assembly Machine Tender: MARY SOTELO ([id number])[facility])[address] [place] [address] IMMATURE GRANS % 0.3 % Normal 0.0-2.0 [facility] Comment on above: Performed By: #### L [id number] ####Assembly Machine Tender: MARY SOTELO ([id number])[address] IMMATURE GRANS ABSOLUTE 0.0 10*3/uL Normal <0.1 [facility] Comment on above: Performed By: #### L [id number] ####Assembly Machine Tender: MARY SOTELO ([id number])[facility])[address] [place] [address] Lymphocytes (Bld) [#/Vol] 1.1 10*3/uL Normal 1.0-4.3 [facility] Comment on above: Performed By: #### L [id number] ####Assembly Machine Tender: MARY SOTELO ([id number])[facility])[address] [place] [address] Lymphocytes/100 WBC (Bld) 18.6 % Normal 15.0-45.0 [facility] Comment on above: Performed By: #### L [id number] ####Assembly Machine Tender: MARY SOTELO ([id number])[address] MCH (RBC) [Entitic mass] 29.1 pg Normal 26.0-34.0 [facility] Comment on above: Performed By: #### L [id number] ####Assembly Machine Tender: MARY SOTELO ([id number])[facility])[address] [place] [address] MCHC 32.2 % Normal 30.5-36.0 [facility] Comment on above: Performed By: #### L [id number] ####Assembly Machine Tender: MARY SOTELO ([id number])[address] MCV (RBC) [Entitic vol] 90.4 fL Normal 77.0-99.0 [facility] Comment on above: Performed By: #### L [id number] ####Assembly Machine Tender: MARY SOTELO ([id number])[facility])[address] [place] [address] Monocytes (Bld) [#/Vol] 0.4 10*3/uL Normal 0.0-0.9 [facility] Comment on above: Performed By: #### L [id number] ####Assembly Machine Tender: MARY SOTELO ([id number])[address] [place] [address] [place] Monocytes/100 WBC (Bld) 7.6 % Normal 5.0-13.0 [facility] Comment on above: Performed By: #### L [id number] ####Assembly Machine Tender: MARY SOTELO ([id number])[facility] ([facility])[address] [place] [address] NEUTROPHILS ABSOLUTE 3.8 10*3/uL Normal 1.8-7.5 [facility] Comment on above: Performed By: #### L [id number] ####Assembly Machine Tender: MARY SOTELO ([id number])[facility] ([facility])[address] [place] [address] Neutrophils/100 WBC (Bld) 65.8 % Normal 38.0-82.0 [facility] Comment on above: Performed By: #### L [id number] ####Assembly Machine Tender: MARY SOTELO ([id number])[facility] ([facility])[address] [place] [address] NRBC 0.0 /100 WBCs Normal 0.0-2.0 [facility] Comment on above: Performed By: #### L [id number] ####Assembly Machine Tender: MARY SOTELO ([id number])[facility])[address] [place] [address] Platelet mean volume (Bld) [Entitic vol] 10.6 fL Normal 9.0-12.7 [facility] Comment on above: Performed By: #### L [id number] ####Assembly Machine Tender: MARY SOTELO ([id number])[facility] ([facility])[address] [place] [address] Platelets (Bld) [#/Vol] 198 10*3/uL Normal 140-440 [facility] Comment on above: Performed By: #### L [id number] ####Assembly Machine Tender: MARY SOTELO ([id number])[facility] ([facility])[address] [place] [address] RBC (Bld) [#/Vol] 2.82 10*6/uL Low 3.80-5.20 [facility] Comment on above: Performed By: #### L [id number] ####Assembly Machine Tender: MARY SOTELO ([id number])[facility])[address] [place] [address] WBC (Bld) [#/Vol] 5.8 10*3/uL Normal 3.6-10.7 [facility] Comment on above: Performed By: #### L [id number] ####Assembly Machine Tender: MARY SOTELO ([id number])[facility] ([facility])[address] [place] [address] Laboratory - Chemistry and C hemistry - challengeon 08-24-2024 Glucose [Mass/Vol] 293 mg/dL High 70 - 100 mg/dL [facility] Glucose [Mass/Vol] 219 mg/dL High 70 - 100 mg/dL [facility] Glucose [Mass/Vol] 277 mg/dL High 70 - 100 mg/dL [facility] Magnesium [Mass/Vol] 1.8 mg/dL 1.6 - 2 .3 mg/dL [facility] MAGNESIUMon 08-24-2024 Magnesium [Mass/Vol] 1.8 mg/dL Normal 1.6-2.3 [facility] Comment on above: Performed By: #### L AB113, LAB15, [id number] ####Assembly Machine Tender: MARY SOTELO ([id number])[facility] ([facility])[address] [place] [address] Magnesium [Mass/Vol]on 08-24 Interpretation and review of laboratory results Normal [facility] No Panel Informationon 08-24 Interpretation and review of laboratory results Abnormal [facility] Interpretation and review of laboratory results Abnormal [facility] Interpretation and review of laboratory results Abnormal [facility] PHOSPHORUSon 08-24-2024 Phosphate [Mass/Vol] 1.8 mg/dL Low 2.5-4.5 [facility] Comment on above: Performed By: #### L AB113, LAB15, [id number] ####Assembly Machine Tender: MARY SOTELO ([id number])[facility] ([facility])[address] [place] [address] [place] Phosphate [Moles/Vol]on 08-04 Interpretation and review of laboratory results Abnormal [facility] Phosphate [Mass/Vol] 1.8 mg/dL Low 2.5 - 4 .5 mg/dL [facility] Progress Noteon 08-24-2024 Progress Note Normal [facility] BASIC METABOLIC PANELon 08-04 Anion gap [Moles/Vol] 5 mmol/L Normal 3-13 [facility] Comment on above: Performed By: #### L AB15, RAU323, [id number] ####Assembly Machine Tender: MARY SOTELO ([id number])[facility] [place] [address] Calcium [Mass/Vol] 7.3 mg/dL Low 8.4-10.4 [facility] Comment on above: Performed By: #### L AB15, [id number], [id number] ####Assembly Machine Tender: MARY SOTELO ([id number])[facility] ([facility])[address] [place] [address] [place] Chloride [Moles/Vol] 99 mmol/L Normal 98-107 [facility] Comment on above: Performed By: #### L AB15, JZL860, SLL822 ####Assembly Machine Tender: MARY SOTELO ([id number])[facility] ([facility])[address] [place] [address] [place] CO2 [Moles/Vol] 27 mmol/L Normal 22-30 [facility] Comment on above: Performed By: #### L AB15, XJL373, YJL683 ####Assembly Machine Tender: MARY SOTELO ([id number])[facility] [place] [address] [place] Creatinine [Mass/Vol] 3.39 mg/dL High 0.52-1.04 [facility] Comment on above: Performed By: #### L AB15, ERL447, VIS027 ####Assembly Machine Tender: MARY SOTELO ([id number])[facility] [place] [address] [place] GLOMERULAR FILTRATION RATE ML/MIN/1.73 SQ M.PREDICTED 14.6 mL/min/1.73m*2 Low >60.0 [facility] Comment on above: Result Comment: Calc ulation based on the Chronic Kidney Disease Epidemiology Collaboration (CKD-EPI) equation refit without adjustment for race Performed By: #### L AB15, ILM368, JSO677 ####Assembly Machine Tender: MARY SOTELO ([id number])[facility])[address] [place] [address] Glucose [Mass/Vol] 299 mg/dL High 70-100 [facility] Comment on above: Performed By: #### L AB15, MQT534, LKS632 ####Assembly Machine Tender: MARY SOTELO ([id number])[facility])[address] [place] [address] Potassium [Moles/Vol] 4.0 mmol/L Normal 3.5-5.1 [facility] Comment on above: Performed By: #### L AB15, JRE921, IVL015 ####Assembly Machine Tender: MARY SOTELO ([id number])[facility] ([facility])[address] [place] [address] Sodium [Moles/Vol] 130 mmol/L Low 135-145 [facility] Comment on above: Performed By: #### L AB15, [id number], QXV495 ####Assembly Machine Tender: MARY SOTELO ([id number])[facility])[address] [place] [address] Urea nitrogen [Mass/Vol] 37 mg/dL High 7-17 [facility] Comment on above: Performed By: #### L AB15, [id number], XYC271 ####Assembly Machine Tender: MARY SOTELO ([id number])[facility])[address] [place] [address] Bacteria identified Cx Nom ( U)Ordered By: Kalia Gifford on 08-23-2024 Interpretation and review of laboratory results Abnormal [facility] Basic metabolic 1998 panelon 08-23-2024 Anion gap [Moles/Vol] 5 mmol/L 3 - 13 mmol/L [facility] Calcium [Mass/Vol] 7.3 mg/dL Low 8.4 - 10. 4 mg/dL [facility] Chloride [Moles/Vol] 99 mmol/L 98 - 10 7 mmol/L [facility] CO2 [Moles/Vol] 27 mmol/L 22 - 30 mmol/L [facility] Creatinine [Mass/Vol] 3.39 mg/dL High 0.52 - 1.04 mg/dL [facility] GFR/1.73 sq M.predicted (S/P/Bld) [Vol rate/Area] 14.6 mL/min Low - PINF [facility] Glucose [Mass/Vol] 299 mg/dL High 70 - 100 mg/dL [facility] Interpretation and review of laboratory results Abnormal [facility] Potassium [Moles/Vol] 4 mmol/L 3.5 - 5.1 mmol/L [facility] Sodium [Moles/Vol] 130 mmol/L Low 135 - 145 mmol/L [facility] Urea nitrogen [Mass/Vol] 37 mg/dL High 7 - 17 mg/dL [facility] CARECOORDon 08-23-2024 CARECOORD Normal [facility] CBC W Auto Differential pane l (Bld)on 08-23-2024 Basophils (Bld) [#/Vol] 0 10*3/uL 0.0 - 0.2 10*3/uL [facility] Basophils/100 WBC (Bld) 0.2 % 0.0 - 2.0 % [facility] Eosinophils (Bld) [#/Vol] 0.1 10*3/uL 0.0 - 0.5 10*3/uL [facility] Eosinophils/100 WBC (Bld) 1.1 % 0.0 - 6.0 % [facility] Erythrocyte distribution width (RBC) [Ratio] 15.9 % High 11.5 - 15.0 % [facility] Hematocrit (Bld) [Volume fraction] 25.5 % Low 35.0 - 47.0 % [facility] Hemoglobin (Bld) [Mass/Vol] 8.2 g/dL Low 11.7 - 16.0 g/dL [facility] Immature granulocytes (Bld) [#/Vol] 0 10*3/uL NINF - 0.1 10*3/uL [facility] Immature granulocytes/100 WBC (Bld) 0.5 % 0.0 - 2.0 % [facility] Interpretation and review of laboratory results Abnormal [facility] [employer] Lymphocytes (Bld) [#/Vol] 0.6 10*3/uL Low 1.0 - 4.3 10*3/uL [facility] [employer] Lymphocytes/100 WBC (Bld) 14.6 % Low 15.0 - 45.0 % [facility] MCH (RBC) [Entitic mass] 28.9 pg 26.0 - 34.0 pg [facility] MCHC (RBC) [Mass/Vol] 32.2 % 30.5 - 36.0 % [facility] MCV (RBC) [Entitic vol] 89.8 fL 77.0 - 99.0 fL [facility] [employer] Monocytes (Bld) [#/Vol] 0.3 10*3/uL 0.0 - 0.9 10*3/uL [facility] Monocytes/100 WBC (Bld) 7.3 % 5.0 - 13.0 % [facility] Neutrophils (Bld) [#/Vol] 3.4 10*3/uL 1.8 - 7.5 10*3/uL [facility] Neutrophils/100 WBC (Bld) 76.3 % 38.0 - 82.0 % [facility] [employer] Nucleated RBC/100 WBC (Bld) [Ratio] 0 % [facility] [employer] Platelet mean volume (Bld) [Entitic vol] 10.4 fL 9.0 - 12.7 fL [facility] Platelets (Bld) [#/Vol] 167 10*3/uL 140 - 440 10*3/uL [facility] RBC (Bld) [#/Vol] 2.84 10*6/uL Low 3.80 - 5.2 0 10*6/uL [facility] WBC (Bld) [#/Vol] 4.4 10*3/uL 3.6 - 10.7 10*3/uL [facility] CBC WITH AUTO DIFFERENTIALon 08-23-2024 Basophils (Bld) [#/Vol] 0.0 10*3/uL Normal 0.0-0.2 [facility] Comment on above: Performed By: #### L [id number] ####Assembly Machine Tender: MARY SOTELO ([id number])[facility] ([address] Basophils/100 WBC (Bld) 0.2 % Normal 0.0-2.0 [facility] Comment on above: Performed By: #### L [id number] ####Assembly Machine Tender: MARY SOTELO ([id number])[facility])[address] [place] [address] Eosinophils (Bld) [#/Vol] 0.1 10*3/uL Normal 0.0-0.5 [facility] Comment on above: Performed By: #### L [id number] ####Assembly Machine Tender: MARY SOTELO ([id number])[facility])[address] [place] [address] Eosinophils/100 WBC (Bld) 1.1 % Normal 0.0-6.0 [facility] Comment on above: Performed By: #### L [id number] ####Assembly Machine Tender: MARY SOTELO ([id number])[facility])[address] [place] [address] Erythrocyte distribution width (RBC) [Ratio] 15.9 % High 11.5-15.0 [facility] Comment on above: Performed By: #### L [id number] ####Assembly Machine Tender: MARY SOTELO ([id number])[facility])[address] [place] [address] Hematocrit (Bld) [Volume fraction] 25.5 % Low 35.0-47.0 [facility] Comment on above: Performed By: #### L [id number] ####Assembly Machine Tender: MARY SOTELO ([id number])[facility])[address] [place] [address] Hemoglobin (Bld) [Mass/Vol] 8.2 g/dL Low 11.7-16.0 [facility] Comment on above: Performed By: #### L [id number] ####Assembly Machine Tender: MARY SOTELO ([id number])[facility])[address] [place] [address] IMMATURE GRANS % 0.5 % Normal 0.0-2.0 [facility] Comment on above: Performed By: #### L [id number] ####Assembly Machine Tender: MARY SOTELO ([id number])[address] IMMATURE GRANS ABSOLUTE 0.0 10*3/uL Normal <0.1 [facility] Comment on above: Performed By: #### L [id number] ####Assembly Machine Tender: MARY SOTELO ([id number])[facility])[address] [place] [address] Lymphocytes (Bld) [#/Vol] 0.6 10*3/uL Low 1.0-4.3 [facility] Comment on above: Performed By: #### L [id number] ####Assembly Machine Tender: MARY SOTELO ([id number])[address] Lymphocytes/100 WBC (Bld) 14.6 % Low 15.0-45.0 [facility] Comment on above: Performed By: #### L [id number] ####Assembly Machine Tender: MARY SOTELO ([id number])[address] MCH (RBC) [Entitic mass] 28.9 pg Normal 26.0-34.0 [facility] Comment on above: Performed By: #### L [id number] ####Assembly Machine Tender: MARY SOTELO ([id number])[address] MCHC 32.2 % Normal 30.5-36.0 [facility] Comment on above: Performed By: #### L [id number] ####Assembly Machine Tender: MARY SOTELO ([id number])[address] MCV (RBC) [Entitic vol] 89.8 fL Normal 77.0-99.0 [facility] Comment on above: Performed By: #### L [id number] ####Assembly Machine Tender: MARY [id number])[facility] ([facility])[address] [place] [address] Monocytes (Bld) [#/Vol] 0.3 10*3/uL Normal 0.0-0.9 [facility] Comment on above: Performed By: #### L [id number] ####Assembly Machine Tender: MARY SOTELO ([id number])[facility])[address] [place] [address] Monocytes/100 WBC (Bld) 7.3 % Normal 5.0-13.0 [facility] Comment on above: Performed By: #### L [id number] ####Assembly Machine Tender: MARY SOTELO ([id number])[facility])[address] [place] [address] NEUTROPHILS ABSOLUTE 3.4 10*3/uL Normal 1.8-7.5 [facility] Comment on above: Performed By: #### L [id number] ####Assembly Machine Tender: MARY SOTELO ([id number])[facility] ([facility])[address] [place] [address] Neutrophils/100 WBC (Bld) 76.3 % Normal 38.0-82.0 [facility] Comment on above: Performed By: #### L [id number] ####Assembly Machine Tender: MARY SOTELO ([id number])[facility] ([facility])[address] [place] [address] NRBC 0.0 /100 WBCs Normal 0.0-2.0 [facility] Comment on above: Performed By: #### L [id number] ####Assembly Machine Tender: MARY SOTELO ([id number])[facility] ([facility])[address] [place] [address] Platelet mean volume (Bld) [Entitic vol] 10.4 fL Normal 9.0-12.7 [facility] Comment on above: Performed By: #### L [id number] ####Assembly Machine Tender: MARY SOTELO ([id number])[facility] ([facility])[address] [place] [address] Platelets (Bld) [#/Vol] 167 10*3/uL Normal 140-440 [facility] Comment on above: Performed By: #### L [id number] ####Assembly Machine Tender: MARY SOTELO ([id number])[facility])[address] [place] [address] RBC (Bld) [#/Vol] 2.84 10*6/uL Low 3.80-5.20 [facility] Comment on above: Performed By: #### L [id number] ####Assembly Machine Tender: MARY SOTELO ([id number])[facility])[address] [place] [address] WBC (Bld) [#/Vol] 4.4 10*3/uL Normal 3.6-10.7 [facility] Comment on above: Performed By: #### L [id number] ####Assembly Machine Tender: MARY SOTELO ([id number])[facility])[address] [place] [address] Consulton 08-23-2024 Consult Normal [facility] HBV surface Ab IA Qnon 08-23 [facility] HBV surface Ag IA Qlon 08-23 Interpretation and review of laboratory results Normal [facility] HEPATITIS B SURFACE ANTIBODY on 08-23-2024 HEPATITIS B VIRUS SURFACE AB <8.0 Normal [facility] Comment on above: Result Comment: ORDE R COMMENTS:Interpretation:<8.0 Non-Reactive8.0-11.9 Equivocal>= 12.0 Ab DetectedNote: If an equivocal result is interpreted, an antibody status is unable to be determined. Collect new specimen if clinically indicated. Performed By: #### L AB472, PZM740 ####Assembly Machine Tender: MARY SOTELO ([id number])[facility])[address] [place] [address] HEPATITIS B SURFACE ANTIGENo n 08-23-2024 HEPATITIS B VIRUS SURFACE AG Not detected Normal Not Detected [facility] Comment on above: Performed By: #### L AB472, [id number] ####Assembly Machine Tender: MARY SOTELO ([id number])[facility] ([facility])[address] [place] [address] [place] IDNon 08-23-2024 IDN Normal [facility] IDN Normal [facility] Laboratory - Chemistry and C hemistry - challengeon 08-23-2024 Glucose [Mass/Vol] 126 mg/dL High 70 - 100 mg/dL [facility] Glucose [Mass/Vol] 166 mg/dL High 70 - 100 mg/dL [facility] Glucose [Mass/Vol] 129 mg/dL High 70 - 100 mg/dL [facility] Glucose [Mass/Vol] 287 mg/dL High 70 - 100 mg/dL [facility] Glucose [Mass/Vol] 304 mg/dL High 70 - 100 mg/dL [facility] Magnesium [Mass/Vol] 1.9 mg/dL 1.6 - 2 .3 mg/dL [facility] Laboratory - Microbiology an d Antimicrobial susceptibilityon 08-23-2024 HBV surface Ab IA Qn mIU/mL [facility] HBV surface Ag IA Ql Not detected Not Detected [facility] Laboratory - Microbiology an d Antimicrobial susceptibilityOrdered By: Kalia Gifford on 08-23-2024 Bacteria identified Cx Nom (U) Normal urogenital keven present [facility] Bacteria identified Cx Nom (U) 50,000-90,000 CFU/mL Abbi albicans Abnormal [facility] MAGNESIUMon 08-23-2024 Magnesium [Mass/Vol] 1.9 mg/dL Normal 1.6-2.3 [facility] Comment on above: Performed By: #### L AB15, OYC264, [id number] ####Assembly Machine Tender: MARY SOTELO ([id number])[facility] ([facility])[address] [place] [address] No Panel Informationon 08-23 Interpretation and review of laboratory results Abnormal [facility] Interpretation and review of laboratory results Abnormal [facility] Interpretation and review of laboratory results Abnormal [facility] Interpretation and review of laboratory results Abnormal [facility] Interpretation and review of laboratory results Abnormal [facility] Interpretation and review of laboratory results Normal [facility] Nursing Noteon 08-23-2024 Nursing Note Normal [facility] PHOSPHORUSon 08-23-2024 Phosphate [Mass/Vol] 2.5 mg/dL Normal 2.5-4.5 [facility] Comment on above: Performed By: #### L AB15, YCH914, [id number] ####Assembly Machine Tender: MARY SOTELO ([id number])[facility] [place] [address] [place] Phosphate [Moles/Vol]on 08-04 Phosphate [Mass/Vol] 2.5 mg/dL 2.5 - 4 .5 mg/dL [facility] Progress Noteon 08-23-2024 Progress Note Normal [facility] Progress Note Normal [facility] US Kidneyon 08-23-2024 [facility] Radiology Study observation (narrative) [facility] US KidneyOrdered By: Daniel esquivel on 08-23-2024 [facility] Work Phone: US RENAL COMPLETEon 08-23-20 US RENAL COMPLETE Normal [facility] ealt System [facility] BASIC METABOLIC PANELon 08-04 Anion gap [Moles/Vol] 5 mmol/L Normal 3-13 [facility] Comment on above: Performed By: #### L AB103, LAB15, [id number] ####Assembly Machine Tender: MARY SOTELO ([id number])[facility] [place] [address] [place] Calcium [Mass/Vol] 7.3 mg/dL Low 8.4-10.4 [facility] Comment on above: Performed By: #### L AB103, LAB15, GWL508 ####Assembly Machine Tender: MARY SOTELO ([id number])[facility] ([facility])[address] [place] [address] [place] Chloride [Moles/Vol] 97 mmol/L Low 98-107 [facility] Comment on above: Performed By: #### L AB103, LAB15, HVT925 ####Assembly Machine Tender: MARY SOTELO ([id number])[facility] ([facility])[address] [place] [address] [place] CO2 [Moles/Vol] 28 mmol/L Normal 22-30 [facility] Comment on above: Performed By: #### L AB103, LAB15, [id number] ####Assembly Machine Tender: MARY SOTELO ([id number])[facility] ([facility])[address] [place] [address] Creatinine [Mass/Vol] 3.04 mg/dL High 0.52-1.04 [facility] Comment on above: Performed By: #### L AB103, LAB15, [id number] ####Assembly Machine Tender: MARY SOTELO ([id number])[facility] ([facility])[address] [place] [address] GLOMERULAR FILTRATION RATE ML/MIN/1.73 SQ M.PREDICTED 16.6 mL/min/1.73m*2 Low >60.0 [facility] Comment on above: Result Comment: Calc ulation based on the Chronic Kidney Disease Epidemiology Collaboration (CKD-EPI) equation refit without adjustment for race Performed By: #### L AB103, LAB15, [id number] ####Assembly Machine Tender: MARY SOTELO ([id number])[facility] ([facility])[address] [place] [address] Glucose [Mass/Vol] 309 mg/dL High 70-100 [facility] Comment on above: Performed By: #### L AB103, LAB15, [id number] ####Assembly Machine Tender: MARY SOTELO ([id number])[facility] ([facility])[address] [place] [address] [place] Potassium [Moles/Vol] 3.4 mmol/L Low 3.5-5.1 [facility] Comment on above: Performed By: #### L AB103, LAB15, [id number] ####Assembly Machine Tender: MARY SOTELO ([id number])[facility])[address] [place] [address] Sodium [Moles/Vol] 130 mmol/L Low 135-145 [facility] Comment on above: Performed By: #### L AB103, LAB15, [id number] ####Assembly Machine Tender: MARY SOTELO ([id number])[facility] ([facility])[address] [place] [address] Urea nitrogen [Mass/Vol] 28 mg/dL High 7-17 [facility] Comment on above: Performed By: #### L AB103, LAB15, [id number] ####Assembly Machine Tender: MARY SOTELO ([id number])[facility] ([facility])[address] [place] [address] Basic metabolic 1998 panelon 08-22-2024 Anion gap [Moles/Vol] 5 mmol/L 3 - 13 mmol/L [facility] Calcium [Mass/Vol] 7.3 mg/dL Low 8.4 - 10. 4 mg/dL [facility] Chloride [Moles/Vol] 97 mmol/L Low 98 - 10 7 mmol/L [facility] CO2 [Moles/Vol] 28 mmol/L 22 - 30 mmol/L [facility] Creatinine [Mass/Vol] 3.04 mg/dL High 0.52 - 1.04 mg/dL [facility] GFR/1.73 sq M.predicted (S/P/Bld) [Vol rate/Area] 16.6 mL/min Low - PINF [facility] Glucose [Mass/Vol] 309 mg/dL High 70 - 100 mg/dL [facility] Interpretation and review of laboratory results Abnormal [facility] Potassium [Moles/Vol] 3.4 mmol/L Low 3.5 - 5.1 mmol/L [facility] Sodium [Moles/Vol] 130 mmol/L Low 135 - 145 mmol/L [facility] Urea nitrogen [Mass/Vol] 28 mg/dL High 7 - 17 mg/dL [facility] CALCIUM, IONIZEDon 4 CALCIUM IONIZED 3.90 mg/dL Low 4.30-5.20 [facility] Comment on above: Performed By: #### L [id number] ####Assembly Machine Tender: MARY SOTELO ([id number])[facility] ([facility])[address] [place] [address] PH, IONIZED CALCIUM 7.42 Normal 7.31-7.46 [facility] Comment on above: Performed By: #### L AB54 ####Assembly Machine Tender: MARY SOTELO ([id number])[facility] ([address] CBC W Auto Differential pane l (Bld)on 08-22-2024 Basophils (Bld) [#/Vol] 0 10*3/uL 0.0 - 0.2 10*3/uL [facility] Basophils/100 WBC (Bld) 0.4 % 0.0 - 2.0 % [facility] Eosinophils (Bld) [#/Vol] 0.4 10*3/uL 0.0 - 0.5 10*3/uL [facility] Eosinophils/100 WBC (Bld) 7.7 % High 0.0 - 6.0 % [facility] Erythrocyte distribution width (RBC) [Ratio] 16.2 % High 11.5 - 15.0 % [facility] Hematocrit (Bld) [Volume fraction] 26.6 % Low 35.0 - 47.0 % [facility] Hemoglobin (Bld) [Mass/Vol] 8.6 g/dL Low 11.7 - 16.0 g/dL [facility] Immature granulocytes (Bld) [#/Vol] 0 10*3/uL NINF - 0.1 10*3/uL [facility] Immature granulocytes/100 WBC (Bld) 0.4 % 0.0 - 2.0 % [facility] Interpretation and review of laboratory results Abnormal [facility] Lymphocytes (Bld) [#/Vol] 0.9 10*3/uL Low 1.0 - 4.3 10*3/uL [facility] Lymphocytes/100 WBC (Bld) 18.2 % 15.0 - 45.0 % [facility] MCH (RBC) [Entitic mass] 29.8 pg 26.0 - 34.0 pg [facility] MCHC (RBC) [Mass/Vol] 32.3 % 30.5 - 36.0 % [facility] MCV (RBC) [Entitic vol] 92 fL 77.0 - 99.0 fL [facility] Monocytes (Bld) [#/Vol] 0.4 10*3/uL 0.0 - 0.9 10*3/uL [facility] Monocytes/100 WBC (Bld) 7.9 % 5.0 - 13.0 % [facility] Neutrophils (Bld) [#/Vol] 3.1 10*3/uL 1.8 - 7.5 10*3/uL [facility] Neutrophils/100 WBC (Bld) 65.4 % 38.0 - 82.0 % [facility] Nucleated RBC/100 WBC (Bld) [Ratio] 0 % [facility] Platelet mean volume (Bld) [Entitic vol] 10.1 fL 9.0 - 12.7 fL [facility] Platelets (Bld) [#/Vol] 161 10*3/uL 140 - 440 10*3/uL [facility] RBC (Bld) [#/Vol] 2.89 10*6/uL Low 3.80 - 5.2 0 10*6/uL [facility] WBC (Bld) [#/Vol] 4.8 10*3/uL 3.6 - 10.7 10*3/uL [facility] CBC WITH AUTO DIFFERENTIALon 08-22-2024 Basophils (Bld) [#/Vol] 0.0 10*3/uL Normal 0.0-0.2 [facility] Comment on above: Performed By: #### L [id number] ####Assembly Machine Tender: MARY SOTELO ([id number])[address] Basophils/100 WBC (Bld) 0.4 % Normal 0.0-2.0 [facility] Comment on above: Performed By: #### L [id number] ####Assembly Machine Tender: MARY SOTELO ([id number])[facility])[address] [place] [address] Eosinophils (Bld) [#/Vol] 0.4 10*3/uL Normal 0.0-0.5 [facility] Comment on above: Performed By: #### L [id number] ####Assembly Machine Tender: MARY SOTELO ([id number])[facility])[address] [place] [address] Eosinophils/100 WBC (Bld) 7.7 % High 0.0-6.0 [facility] Comment on above: Performed By: #### L [id number] ####Assembly Machine Tender: MARY SOTELO ([id number])[facility])[address] [place] [address] Erythrocyte distribution width (RBC) [Ratio] 16.2 % High 11.5-15.0 [facility] Comment on above: Performed By: #### L [id number] ####Assembly Machine Tender: MARY SOTELO ([id number])[facility])[address] [place] [address] Hematocrit (Bld) [Volume fraction] 26.6 % Low 35.0-47.0 [facility] Comment on above: Performed By: #### L [id number] ####Assembly Machine Tender: MARY SOTELO ([id number])[facility])[address] [place] [address] Hemoglobin (Bld) [Mass/Vol] 8.6 g/dL Low 11.7-16.0 [facility] Comment on above: Performed By: #### L [id number] ####Assembly Machine Tender: MARY SOTELO ([id number])[facility])[address] [place] [address] IMMATURE GRANS % 0.4 % Normal 0.0-2.0 [facility] Comment on above: Performed By: #### L [id number] ####Assembly Machine Tender: MARY SOTELO ([id number])[facility])[address] [place] [address] IMMATURE GRANS ABSOLUTE 0.0 10*3/uL Normal <0.1 [facility] Comment on above: Performed By: #### L [id number] ####Assembly Machine Tender: MARY SOTELO ([id number])[facility])[address] [place] [address] Lymphocytes (Bld) [#/Vol] 0.9 10*3/uL Low 1.0-4.3 [facility] Comment on above: Performed By: #### L [id number] ####Assembly Machine Tender: MARY SOTELO ([id number])[facility])[address] [place] [address] [place] Lymphocytes/100 WBC (Bld) 18.2 % Normal 15.0-45.0 [facility] Comment on above: Performed By: #### L [id number] ####Assembly Machine Tender: MARY SOTELO ([id number])[facility])[address] [place] [address] MCH (RBC) [Entitic mass] 29.8 pg Normal 26.0-34.0 [facility] Comment on above: Performed By: #### L [id number] ####Assembly Machine Tender: MARY SOTELO ([id number])[facility])[address] [place] [address] MCHC 32.3 % Normal 30.5-36.0 [facility] Comment on above: Performed By: #### L [id number] ####Assembly Machine Tender: MARY SOTELO ([id number])[facility])[address] [place] [address] MCV (RBC) [Entitic vol] 92.0 fL Normal 77.0-99.0 [facility] Comment on above: Performed By: #### L [id number] ####Assembly Machine Tender: MARY SOTELO ([id number])[facility])[address] [place] [address] Monocytes (Bld) [#/Vol] 0.4 10*3/uL Normal 0.0-0.9 [facility] Comment on above: Performed By: #### L [id number] ####Assembly Machine Tender: MARY SOTELO ([id number])[facility] ([facility])[address] [place] [address] Monocytes/100 WBC (Bld) 7.9 % Normal 5.0-13.0 [facility] Comment on above: Performed By: #### L [id number] ####Assembly Machine Tender: MARY SOTELO ([id number])[facility])[address] [place] [address] NEUTROPHILS ABSOLUTE 3.1 10*3/uL Normal 1.8-7.5 [facility] Comment on above: Performed By: #### L [id number] ####Assembly Machine Tender: MARY SOTELO ([id number])[facility] ([facility])[address] [place] [address] Neutrophils/100 WBC (Bld) 65.4 % Normal 38.0-82.0 [facility] Comment on above: Performed By: #### L [id number] ####Assembly Machine Tender: MARY SOTELO ([id number])[facility] ([facility])[address] [place] [address] NRBC 0.0 /100 WBCs Normal 0.0-2.0 [facility] Comment on above: Performed By: #### L [id number] ####Assembly Machine Tender: MARY SOTELO ([id number])[facility] ([facility])[address] [place] [address] Platelet mean volume (Bld) [Entitic vol] 10.1 fL Normal 9.0-12.7 [facility] Comment on above: Performed By: #### L [id number] ####Assembly Machine Tender: MARY SOTELO ([id number])[facility] ([facility])[address] [place] [address] Platelets (Bld) [#/Vol] 161 10*3/uL Normal 140-440 [facility] Comment on above: Performed By: #### L [id number] ####Assembly Machine Tender: MARY SOTELO ([id number])[facility] ([facility])[address] [place] [address] RBC (Bld) [#/Vol] 2.89 10*6/uL Low 3.80-5.20 [facility] Comment on above: Performed By: #### L [id number] ####Assembly Machine Tender: MARY SOTELO ([id number])[facility])[address] [place] [address] WBC (Bld) [#/Vol] 4.8 10*3/uL Normal 3.6-10.7 [facility] Comment on above: Performed By: #### L [id number] ####Assembly Machine Tender: MARY SOTELO ([id number])[facility] ([facility])[address] [place] [address] Calcium.ionized [Moles/Vol]o n 08-22-2024 Calcium.ionized (Bld) [Moles/Vol] 3.9 mg/dL Low 4.30 - 5.20 mg/dL [facility] Interpretation and review of laboratory results Abnormal [facility] PH, IONIZED CALCIUM 7.42 7.31 - 7.46 [facility] IDNon 08-22-2024 IDN Normal [facility] Laboratory - Chemistry and C hemistry - challengeon 08-22-2024 Glucose [Mass/Vol] 257 mg/dL High 70 - 100 mg/dL [facility] Glucose [Mass/Vol] 255 mg/dL High 70 - 100 mg/dL [facility] Glucose [Mass/Vol] 287 mg/dL High 70 - 100 mg/dL [facility] Glucose [Mass/Vol] 310 mg/dL High 70 - 100 mg/dL [facility] Magnesium [Mass/Vol] 2 mg/dL 1.6 - 2 .3 mg/dL [facility] MAGNESIUMon 08-22-2024 Magnesium [Mass/Vol] 2.0 mg/dL Normal 1.6-2.3 [facility] Comment on above: Performed By: #### L AB103, LAB15, [id number] ####Assembly Machine Tender: MARY SOTELO ([id number])[facility] ([facility])[address] [place] [address] Magnesium [Mass/Vol]on 08-22 Interpretation and review of laboratory results Normal [facility] No Panel Informationon 08-22 Interpretation and review of laboratory results Abnormal [facility] Interpretation and review of laboratory results Abnormal [facility] Interpretation and review of laboratory results Abnormal [facility] Interpretation and review of laboratory results Abnormal [facility] PHOSPHORUSon 08-22-2024 Phosphate [Mass/Vol] 2.3 mg/dL Low 2.5-4.5 [facility] Comment on above: Performed By: #### L AB103, LAB15, [id number] ####Assembly Machine Tender: MARY SOTELO ([id number])[facility] [place] [address] [place] Phosphate [Moles/Vol]on 08-04 Interpretation and review of laboratory results Abnormal [facility] Phosphate [Mass/Vol] 2.3 mg/dL Low 2.5 - 4 .5 mg/dL [facility] Progress Noteon 08-22-2024 Progress Note Normal [facility] Progress Note Normal [facility] Progress Note Normal [facility] BASIC METABOLIC PANELon 08-03 Anion gap [Moles/Vol] 7 mmol/L Normal 3-13 [facility] Comment on above: Performed By: #### L AB113, LAB15, [id number] ####Assembly Machine Tender: MARY SOTELO ([id number])[facility] ([facility])[address] [place] [address] [place] Calcium [Mass/Vol] 7.8 mg/dL Low 8.4-10.4 [facility] Comment on above: Performed By: #### L AB113, LAB15, [id number] ####Assembly Machine Tender: MARY SOTELO ([id number])[facility] ([facility])[address] [place] [address] [place] Chloride [Moles/Vol] 99 mmol/L Normal 98-107 [facility] Comment on above: Performed By: #### L AB113, LAB15, [id number] ####Assembly Machine Tender: MARY SOTELO ([id number])[facility] ([facility])[address] [place] [address] [place] CO2 [Moles/Vol] 27 mmol/L Normal 22-30 [facility] Comment on above: Performed By: #### L AB113, LAB15, [id number] ####Assembly Machine Tender: MARY SOTELO ([id number])[facility] ([facility])[address] [place] [address] [place] Creatinine [Mass/Vol] 4.52 mg/dL High 0.52-1.04 [facility] Comment on above: Performed By: #### L AB113, LAB15, [id number] ####Assembly Machine Tender: MARY SOTELO ([id number])[facility])[address] [place] [address] GLOMERULAR FILTRATION RATE ML/MIN/1.73 SQ M.PREDICTED 10.3 mL/min/1.73m*2 Low >60.0 [facility] Comment on above: Result Comment: Calc ulation based on the Chronic Kidney Disease Epidemiology Collaboration (CKD-EPI) equation refit without adjustment for race Performed By: #### L AB113, LAB15, [id number] ####Assembly Machine Tender: MARY SOTELO ([id number])[facility])[address] [place] [address] Glucose [Mass/Vol] 73 mg/dL Normal 70-100 [facility] Comment on above: Performed By: #### Dora ABGabbie, LAB15, [id number] ####Assembly Machine Tender: MARY SOTELO ([id number])[facility])[address] [place] [address] Potassium [Moles/Vol] 3.2 mmol/L Low 3.5-5.1 [facility] Comment on above: Performed By: #### Dora ABGabbie, LAB15, [id number] ####Assembly Machine Tender: MARY SOTELO ([id number])[facility])[address] [place] [address] Sodium [Moles/Vol] 133 mmol/L Low 135-145 [facility] Comment on above: Performed By: #### Dora ABGabbie, LAB15, [id number] ####Assembly Machine Tender: MARY SOTELO ([id number])[facility])[address] [place] [address] [place] Urea nitrogen [Mass/Vol] 47 mg/dL High 7-17 [facility] Comment on above: Performed By: #### L AB113, LAB15, [id number] ####Assembly Machine Tender: MARY SOTELO ([id number])[facility])[address] [place] [address] BLOOD GAS ARTERIALon 024 Base excess Calc (Bld) [Moles/Vol] 3.2 mmol/L High -3.0-3.0 [facility] Comment on above: Performed By: #### L [id number] ####Assembly Machine Tender: MARY SOTELO ([id number])[facility] ([facility])[address] [place] [address] CO2 [Moles/Vol] 30.8 mmol/L High 23.0-27.0 [facility] Comment on above: Performed By: #### L AB76 ####Assembly Machine Tender: MARY SOTELO ([id number])[facility] ([facility])[address] [place] [address] HCO3 (Bld) [Moles/Vol] 29.2 mmol/L High 21.0-25.0 [facility] Comment on above: Performed By: #### L [id number] ####Assembly Machine Tender: MARY SOTELO ([id number])[facility] ([facility])[address] [place] [address] Hemoglobin (Bld) [Mass/Vol] 10.2 g/dL Normal Screen only [facility] Comment on above: Performed By: #### L [id number] ####Assembly Machine Tender: MARY SOTELO ([id number])[facility] ([facility])[address] [place] [address] OXYGEN SATURATION (%) IN ARTERIAL BLOOD 96.1 % Normal 95.0-100.0 [facility] Comment on above: Performed By: #### L [id number] ####Assembly Machine Tender: MARY SOTELO ([id number])[facility] ([facility])[address] [place] [address] PCO2 ARTERIAL 51.3 mm Hg High >35.0-<45.0 [facility] Comment on above: Performed By: #### L [id number] ####Assembly Machine Tender: MARY SOTELO ([id number])[facility] ([facility])[address] [place] [address] PH ARTERIAL 7.373 Normal 7.350-7.450 [facility] Comment on above: Performed By: #### L [id number] ####Assembly Machine Tender: MARY SOTELO ([id number])[facility] ([facility])[address] [place] [address] PO2 ARTERIAL 85.9 mm Hg Normal 80.0-100.0 [facility] Comment on above: Performed By: #### L [id number] ####Assembly Machine Tender: MARY SOTELO ([id number])[facility] ([facility])[address] [place] [address] SOURCE OF OXYGEN CPAP Normal [facility] Comment on above: Result Comment: 30% Performed By: #### L [id number] ####Assembly Machine Tender: MARY SOTELO ([id number])[facility] ([facility])[address] [place] [address] Base excess Calc (Bld) [Moles/Vol] 0.4 mmol/L Normal -3.0-3.0 [facility] Comment on above: Performed By: #### L [id number] ####Assembly Machine Tender: MARY SOTELO ([id number])[facility] ([facility])[address] [place] [address] CO2 [Moles/Vol] 29.5 mmol/L High 23.0-27.0 [facility] Comment on above: Performed By: #### L [id number] ####Assembly Machine Tender: MARY SOTELO ([id number])[facility] ([facility])[address] [place] [address] HCO3 (Bld) [Moles/Vol] 27.7 mmol/L High 21.0-25.0 [facility] Comment on above: Performed By: #### L [id number] ####Assembly Machine Tender: MARY SOTELO ([id number])[facility] ([facility])[address] [place] [address] Hemoglobin (Bld) [Mass/Vol] 9.8 g/dL Normal Screen only [facility] Comment on above: Performed By: #### L AB76 ####Assembly Machine Tender: MARY SOTELO ([id number])[facility] ([facility])[address] [place] [address] OXYGEN SATURATION (%) IN ARTERIAL BLOOD 96.6 % Normal 95.0-100.0 [facility] Comment on above: Performed By: #### L [id number] ####Assembly Machine Tender: MARY SOTELO ([id number])[facility] ([facility])[address] [place] [address] PCO2 ARTERIAL 59.5 mm Hg High >35.0-<45.0 [facility] Comment on above: Performed By: #### L [id number] ####Assembly Machine Tender: MARY SOTELO ([id number])[facility] ([facility])[address] [place] [address] PH ARTERIAL 7.286 Low 7.350-7.450 [facility] Comment on above: Performed By: #### L AB76 ####Assembly Machine Tender: MARY SOTELO ([id number])[facility] ([facility])[address] [place] [address] PO2 ARTERIAL 88.7 mm Hg Normal 80.0-100.0 [facility] Comment on above: Performed By: #### L [id number] ####Assembly Machine Tender: MARY SOTELO ([id number])[facility] ([facility])[address] [place] [address] SOURCE OF OXYGEN CPAP Normal [facility] Comment on above: Result Comment: 30% Performed By: #### L [id number] ####Assembly Machine Tender: MARY SOTELO ([id number])[facility] ([facility])[address] [place] [address] Basic metabolic 1998 panelon 08-21-2024 Anion gap [Moles/Vol] 7 mmol/L 3 - 13 mmol/L [facility] Calcium [Mass/Vol] 7.8 mg/dL Low 8.4 - 10. 4 mg/dL [facility] Chloride [Moles/Vol] 99 mmol/L 98 - 10 7 mmol/L [facility] CO2 [Moles/Vol] 27 mmol/L 22 - 30 mmol/L [facility] Creatinine [Mass/Vol] 4.52 mg/dL High 0.52 - 1.04 mg/dL [facility] GFR/1.73 sq M.predicted (S/P/Bld) [Vol rate/Area] 10.3 mL/min Low - PINF [facility] Glucose [Mass/Vol] 73 mg/dL 70 - 100 mg/dL [facility] Interpretation and review of laboratory results Abnormal [facility] Potassium [Moles/Vol] 3.2 mmol/L Low 3.5 - 5.1 mmol/L [facility] Sodium [Moles/Vol] 133 mmol/L Low 135 - 145 mmol/L [facility] Urea nitrogen [Mass/Vol] 47 mg/dL High 7 - 17 mg/dL [facility] CARECOORDon 08-21-2024 [place] Normal [facility] CBC W Auto Differential pane l (Bld)on 08-21-2024 Basophils (Bld) [#/Vol] 0 10*3/uL 0.0 - 0.2 10*3/uL [facility] Basophils/100 WBC (Bld) 0.3 % 0.0 - 2.0 % [facility] Eosinophils (Bld) [#/Vol] 0.6 10*3/uL High 0.0 - 0.5 10*3/uL [facility] Eosinophils/100 WBC (Bld) 9.4 % High 0.0 - 6.0 % [facility] Erythrocyte distribution width (RBC) [Ratio] 15.9 % High 11.5 - 15.0 % [facility] Hematocrit (Bld) [Volume fraction] 30.6 % Low 35.0 - 47.0 % [facility] Hemoglobin (Bld) [Mass/Vol] 9.9 g/dL Low 11.7 - 16.0 g/dL [facility] Immature granulocytes (Bld) [#/Vol] 0 10*3/uL NINF - 0.1 10*3/uL [facility] Immature granulocytes/100 WBC (Bld) 0.2 % 0.0 - 2.0 % [facility] Interpretation and review of laboratory results Abnormal [facility] Lymphocytes (Bld) [#/Vol] 1.2 10*3/uL 1.0 - 4.3 10*3/uL [facility] Lymphocytes/100 WBC (Bld) 19.6 % 15.0 - 45.0 % [facility] MCH (RBC) [Entitic mass] 29.6 pg 26.0 - 34.0 pg [facility] MCHC (RBC) [Mass/Vol] 32.4 % 30.5 - 36.0 % [facility] MCV (RBC) [Entitic vol] 91.3 fL 77.0 - 99.0 fL [facility] Monocytes (Bld) [#/Vol] 0.5 10*3/uL 0.0 - 0.9 10*3/uL [facility] Monocytes/100 WBC (Bld) 7.6 % 5.0 - 13.0 % [facility] Neutrophils (Bld) [#/Vol] 3.9 10*3/uL 1.8 - 7.5 10*3/uL [facility] Neutrophils/100 WBC (Bld) 62.9 % 38.0 - 82.0 % [facility] Nucleated RBC/100 WBC (Bld) [Ratio] 0 % [facility] Platelet mean volume (Bld) [Entitic vol] 10.5 fL 9.0 - 12.7 fL [facility] Platelets (Bld) [#/Vol] 157 10*3/uL 140 - 440 10*3/uL [facility] RBC (Bld) [#/Vol] 3.35 10*6/uL Low 3.80 - 5.2 0 10*6/uL [facility] WBC (Bld) [#/Vol] 6.2 10*3/uL 3.6 - 10.7 10*3/uL [facility] CBC WITH AUTO DIFFERENTIALon 08-21-2024 Basophils (Bld) [#/Vol] 0.0 10*3/uL Normal 0.0-0.2 [facility] Comment on above: Performed By: #### L [id number] ####Assembly Machine Tender: MARY SOTELO ([id number])[address] Basophils/100 WBC (Bld) 0.3 % Normal 0.0-2.0 [facility] Comment on above: Performed By: #### L [id number] ####Assembly Machine Tender: MARY SOTELO ([id number])[facility])[address] [place] [address] Eosinophils (Bld) [#/Vol] 0.6 10*3/uL High 0.0-0.5 [facility] Comment on above: Performed By: #### L [id number] ####Assembly Machine Tender: MARY SOTELO ([id number])[facility])[address] [place] [address] Eosinophils/100 WBC (Bld) 9.4 % High 0.0-6.0 [facility] Comment on above: Performed By: #### L [id number] ####Assembly Machine Tender: MARY SOTELO ([id number])[facility])[address] [place] [address] Erythrocyte distribution width (RBC) [Ratio] 15.9 % High 11.5-15.0 [facility] Comment on above: Performed By: #### L [id number] ####Assembly Machine Tender: MARY SOTELO ([id number])[address] Hematocrit (Bld) [Volume fraction] 30.6 % Low 35.0-47.0 [facility] Comment on above: Performed By: #### L [id number] ####Assembly Machine Tender: MARY SOTELO ([id number])[address] Hemoglobin (Bld) [Mass/Vol] 9.9 g/dL Low 11.7-16.0 [facility] Comment on above: Performed By: #### L [id number] ####Assembly Machine Tender: MARY SOTELO ([id number])[facility])[address] [place] [address] IMMATURE GRANS % 0.2 % Normal 0.0-2.0 [facility] Comment on above: Performed By: #### L [id number] ####Assembly Machine Tender: MARY SOTELO ([id number])[address] IMMATURE GRANS ABSOLUTE 0.0 10*3/uL Normal <0.1 [facility] Comment on above: Performed By: #### L [id number] ####Assembly Machine Tender: MARY [id number])[facility])[address] [place] [address] Lymphocytes (Bld) [#/Vol] 1.2 10*3/uL Normal 1.0-4.3 [facility] Comment on above: Performed By: #### L [id number] ####Assembly Machine Tender: MARY SOTELO ([id number])[facility])[address] [place] [address] Lymphocytes/100 WBC (Bld) 19.6 % Normal 15.0-45.0 [facility] Comment on above: Performed By: #### L [id number] ####Assembly Machine Tender: MARY SOTELO ([id number])[facility])[address] [place] [address] MCH (RBC) [Entitic mass] 29.6 pg Normal 26.0-34.0 [facility] Comment on above: Performed By: #### L [id number] ####Assembly Machine Tender: MARY SOTELO ([id number])[facility])[address] [place] [address] MCHC 32.4 % Normal 30.5-36.0 [facility] Comment on above: Performed By: #### L [id number] ####Assembly Machine Tender: MARY SOTELO ([id number])[facility])[address] [place] [address] MCV (RBC) [Entitic vol] 91.3 fL Normal 77.0-99.0 [facility] Comment on above: Performed By: #### L [id number] ####Assembly Machine Tender: MARY SOTELO ([id number])[facility])[address] [place] [address] Monocytes (Bld) [#/Vol] 0.5 10*3/uL Normal 0.0-0.9 [facility] Comment on above: Performed By: #### L [id number] ####Assembly Machine Tender: MARY SOTELO ([id number])[facility])[address] [place] [address] Monocytes/100 WBC (Bld) 7.6 % Normal 5.0-13.0 [facility] Comment on above: Performed By: #### L [id number] ####Assembly Machine Tender: MARY SOTELO ([id number])[facility])[address] [place] [address] NEUTROPHILS ABSOLUTE 3.9 10*3/uL Normal 1.8-7.5 [facility] Comment on above: Performed By: #### L [id number] ####Assembly Machine Tender: MARY SOTELO ([id number])[facility] ([facility])[address] [place] [address] Neutrophils/100 WBC (Bld) 62.9 % Normal 38.0-82.0 [facility] Comment on above: Performed By: #### L [id number] ####Assembly Machine Tender: MARY SOTELO ([id number])[facility] ([facility])[address] [place] [address] NRBC 0.0 /100 WBCs Normal 0.0-2.0 [facility] Comment on above: Performed By: #### L [id number] ####Assembly Machine Tender: MARY SOTELO ([id number])[facility] ([facility])[address] [place] [address] Platelet mean volume (Bld) [Entitic vol] 10.5 fL Normal 9.0-12.7 [facility] Comment on above: Performed By: #### L [id number] ####Assembly Machine Tender: MARY SOTELO ([id number])[facility] ([facility])[address] [place] [address] Platelets (Bld) [#/Vol] 157 10*3/uL Normal 140-440 [facility] Comment on above: Performed By: #### L [id number] ####Assembly Machine Tender: MARY SOTELO ([id number])[facility] ([facility])[address] [place] [address] RBC (Bld) [#/Vol] 3.35 10*6/uL Low 3.80-5.20 [facility] Comment on above: Performed By: #### L [id number] ####Assembly Machine Tender: MARY SOTELO ([id number])[facility] ([facility])[address] [place] [address] WBC (Bld) [#/Vol] 6.2 10*3/uL Normal 3.6-10.7 [facility] Comment on above: Performed By: #### L [id number] ####Assembly Machine Tender: MARY SOTELO ([id number])[facility] ([facility])[address] [place] [address] COMPLETE URINALYSISon 2023 BACTERIA (#/HPF) IN URINE Many Abnormal Negative [facility] Comment on above: Performed By: #### L [id number] ####Assembly Machine Tender: MARY SOTELO ([id number])[facility] ([facility])[address] [place] [address] BILIRUBIN, TOTAL PRESENCE IN URINE Negative Normal Negative [facility] Comment on above: Performed By: #### L [id number] ####Assembly Machine Tender: MARY SOTELO ([id number])[facility] ([facility])[address] [place] [address] Clarity (U) Extra Turbid Abnormal Clear [facility] Comment on above: Performed By: #### L [id number] ####Assembly Machine Tender: MARY SOTELO ([id number])[facility] ([facility])[address] [place] [address] Color (U) Yellow Normal Lt. Yellow [facility] Comment on above: Performed By: #### L [id number] ####Assembly Machine Tender: MARY SOTELO ([id number])[facility] ([facility])[address] [place] [address] GLUCOSE (MG/DL) IN URINE Normal Normal Normal (<70) [facility] Comment on above: Performed By: #### L [id number] ####Assembly Machine Tender: MARY SOTELO ([id number])[facility] ([facility])[address] [place] [address] HEMOGLOBIN PRESENCE IN URINE 1.0 mg/dL Abnormal Negative [facility] Comment on above: Performed By: #### L [id number] ####Assembly Machine Tender: MARY SOTELO ([id number])[facility])[address] [place] [address] HYALINE CASTS (#/LPF) IN URINE SEDIMENT BY MICROSCOPY Negative Normal Negative [facility] Comment on above: Performed By: #### L [id number] ####Assembly Machine Tender: MARY SOTELO ([id number])[facility] ([facility])[address] [place] [address] Ketones Ql (U) Negative Normal Negative [facility] Comment on above: Performed By: #### L [id number] ####Assembly Machine Tender: MARY SOTELO ([id number])[facility])[address] [place] [address] LEUKOCYTE ESTERASE PRESENCE IN URINE BY TEST STRIP 500 Bere/uL Abnormal Negative [facility] Comment on above: Performed By: #### L [id number] ####Assembly Machine Tender: MARY SOTELO ([id number])[facility] ([facility])[address] [place] [address] NITRITE PRESENCE IN URINE Negative Normal Negative [facility] Comment on above: Performed By: #### L [id number] ####Assembly Machine Tender: MARY SOTELO ([id number])[facility] ([facility])[address] [place] [address] pH (U) 6.0 [pH] Normal 5.0-8.0 [facility] Comment on above: Performed By: #### L [id number] ####Assembly Machine Tender: MARY SOTELO ([id number])[facility] ([facility])[address] [place] [address] Protein (U) [Mass/Vol] 100 mg/dL Abnormal Negative [facility] Comment on above: Performed By: #### L [id number] ####Assembly Machine Tender: MARY SOTELO ([id number])[facility] ([facility])[address] [place] [address] [place] RBC (#/HPF) IN URINE SEDIMENT >100 Abnormal 0-2 [facility] Comment on above: Performed By: #### L [id number] ####Assembly Machine Tender: MARY SOTELO ([id number])[facility] ([facility])[address] [place] [address] Specific gravity (U) [Rel density] 1.009 Normal 1.005-1.030 [facility] Comment on above: Performed By: #### L [id number] ####Assembly Machine Tender: MARY SOTELO ([id number])[facility] ([facility])[address] [place] [address] [place] SQUAMOUS EPITHELIAL CELLS (#/HPF) IN URINE SEDIMENT Negative Normal 3-5 [facility] Comment on above: Performed By: #### L [id number] ####Assembly Machine Tender: MARY SOTELO ([id number])[facility] ([facility])[address] [place] [address] UROBILINOGEN (MG/DL) IN URINE Normal Normal Normal (0-1) [facility] Comment on above: Performed By: #### L [id number] ####Assembly Machine Tender: MARY SOTELO ([id number])[facility] ([facility])[address] [place] [address] [place] WBC (LEUKOCYTE) (#/HPF) IN URINE SEDIMENT >100 Abnormal 0-5 [facility] Comment on above: Performed By: #### L [id number] ####Assembly Machine Tender: MARY SOTELO ([id number])[facility] ([facility])[address] [place] [address] [place] WBC (LEUKOCYTE) CLUMPS (#/HPF) IN URINE SEDIMENT Many Abnormal Negative [facility] Comment on above: Performed By: #### L [id number] ####Assembly Machine Tender: MARY SOTELO ([id number])[facility] ([facility])[address] [place] [address] [place] YEAST (#/HPF) IN URINE Moderate Abnormal Negative [facility] Comment on above: Performed By: #### L [id number] ####Assembly Machine Tender: MARY SOTELO ([id number])[facility] ([facility])[address] [place] [address] [place] GLUCOSE, RANDOMon 08-21-2024 Glucose [Mass/Vol] 27 mg/dL Critically low 70-100 [facility] Comment on above: Performed By: #### L [id number] ####Assembly Machine Tender: MARY SOTELO ([id number])[facility] ([facility])[address] [place] [address] Glucose (Bld) [Mass/Vol]Orde red By: Madison Donaldson on 08-21-2024 Glucose [Mass/Vol] 27 mg/dL Critically low 70 - 10 0 mg/dL [facility] Interpretation and review of laboratory results Abnormal [facility] Laboratory - Chemistry and C hemistry - challengeon 08-21-2024 Glucose [Mass/Vol] 228 mg/dL High 70 - 100 mg/dL [facility] Glucose [Mass/Vol] 123 mg/dL High 70 - 100 mg/dL [facility] Glucose [Mass/Vol] 110 mg/dL High 70 - 100 mg/dL [facility] Base excess Calc (Bld) [Moles/Vol] 3.2 mmol/L High -3.0 - 3.0 mmol/L [facility] CO2 (Bld) [Partial pressure] 51.3 mm[Hg] High - PINF [facility] CO2 [Moles/Vol] 30.8 mmol/L High 23.0 - 27.0 mmol/L [facility] HCO3 (Bld) [Moles/Vol] 29.2 mmol/L High 21.0 - 25.0 mmol/L [facility] Oxygen (Bld) [Partial pressure] 85.9 mm[Hg] [facility] pH (Bld) 7.373 [pH] 7.350 - 7.450 [facility] Glucose [Mass/Vol] 103 mg/dL High 70 - 100 mg/dL [facility] Glucose [Mass/Vol] 106 mg/dL High 70 - 100 mg/dL [facility] Glucose [Mass/Vol] 128 mg/dL High 70 - 100 mg/dL [facility] Glucose [Mass/Vol] 166 mg/dL High 70 - 100 mg/dL [facility] Glucose [Mass/Vol] mg/dL Low 70 - 100 mg/dL [facility] Base excess Calc (Bld) [Moles/Vol] 0.4 mmol/L -3.0 - 3.0 mmol/L [facility] CO2 (Bld) [Partial pressure] 59.5 mm[Hg] High - PINF [facility] CO2 [Moles/Vol] 29.5 mmol/L High 23.0 - 27.0 mmol/L [facility] HCO3 (Bld) [Moles/Vol] 27.7 mmol/L High 21.0 - 25.0 mmol/L [facility] Oxygen (Bld) [Partial pressure] 88.7 mm[Hg] [facility] pH (Bld) 7.286 [pH] Low 7.350 - 7.450 [facility] Magnesium [Mass/Vol] 2.1 mg/dL 1.6 - 2 .3 mg/dL [facility] Laboratory - Hematology and Cell countson 08-21-2024 Hemoglobin (Bld) [Mass/Vol] 10.2 g/dL Screen only [facility] Hemoglobin (Bld) [Mass/Vol] 9.8 g/dL Screen only [facility] MAGNESIUMon 08-21-2024 Magnesium [Mass/Vol] 2.1 mg/dL Normal 1.6-2.3 [facility] Comment on above: Performed By: #### L AB113, LAB15, IKR112 ####Assembly Machine Tender: MARY SOTELO ([id number])[address] No Panel Informationon 08-21 Interpretation and review of laboratory results Abnormal [facility] Interpretation and review of laboratory results Abnormal [facility] Interpretation and review of laboratory results Abnormal [facility] Interpretation and review of laboratory results Abnormal [facility] Source Of Oxygen CPAP [facility] Interpretation and review of laboratory results Abnormal [facility] Interpretation and review of laboratory results Abnormal [facility] Interpretation and review of laboratory results Abnormal [facility] Interpretation and review of laboratory results Abnormal [facility] Interpretation and review of laboratory results Abnormal [facility] Interpretation and review of laboratory results Abnormal [facility] Source Of Oxygen CPAP [facility] Interpretation and review of laboratory results Normal [facility] Nursing Noteon 08-21-2024 Nursing Note Normal [facility] PHOSPHORUSon 08-21-2024 Phosphate [Mass/Vol] 3.5 mg/dL Normal 2.5-4.5 [facility] Comment on above: Performed By: #### L AB113, LAB15, [id number] ####Assembly Machine Tender: MARY SOTELO ([id number])[facility] ([facility])[address] [place] [address] [place] Phosphate [Moles/Vol]on 08-03 Phosphate [Mass/Vol] 3.5 mg/dL 2.5 - 4 .5 mg/dL [facility] Progress Noteon 08-21-2024 Progress [facility] URINE CULTUREon 08-21-2024 Bacteria identified Cx Nom (U) Normal [facility] Comment on above: Performed By: #### L [id number] ####Assembly Machine Tender: MARY SOTELO ([id number])[facility] [place] [address] Urinalysis complete panel (U )on 08-21-2024 Bacteria LM.HPF (Urine sed) [#/Area] Many Abnormal Negative /HPF [facility] Bilirubin Ql (U) Negative Negative mg/dL [facility] Clarity (U) Extra Turbid Abnormal Clear [facility] Color (U) Yellow Lt. Yellow [facility] Epithelial cells.squamous LM.HPF (Urine sed) [#/Area] Negative [facility] h Glucose Ql (U) Normal Normal (<70) mg/dL [facility] Hemoglobin Ql (U) 1.0 mg/dL Abnormal Negative [facility] Hyaline casts Auto (Urine sed) [#/Area] Negative Negative /LPF [facility] Interpretation and review of laboratory results Abnormal [facility] Ketones (U) [Mass/Vol] Negative Negat pawan mg/dL [facility] Leukocyte clumps LM.HPF (Urine sed) [#/Area] Many Abnormal Negative /HPF [facility] Leukocyte esterase Test strip Ql (U) 500 Abnormal Negative Bere/uL [facility] Nitrite Ql (U) Negative Negative [facility] th pH (U) 6.0 [pH] 5.0 - 8.0 pH [facility] Protein (U) [Mass/Vol] 100 mg/dL Abnormal Negative [facility] RBC LM.HPF (Urine sed) [#/Area] /[HPF] Abnormal [facility] Specific gravity (U) [Rel density] 1.009 1.005 - 1.030 [facility] Urobilinogen (U) [Mass/Vol] Normal Normal (0-1) mg/dL [facility] WBC LM.HPF (Urine sed) [#/Area] /[HPF] Abnormal [facility] Yeast.budding LM.HPF (Urine sed) [#/Area] Moderate Abnormal Negative /HPF [facility] BASIC METABOLIC PANELon 08-03 Anion gap [Moles/Vol] 8 mmol/L Normal 3-13 [facility] Comment on above: Performed By: #### Dora AB15, [id number], [id number] ####Assembly Machine Tender: MARY SOTELO ([id number])[facility] ([facility])[address] [place] [address] Calcium [Mass/Vol] 7.8 mg/dL Low 8.4-10.4 [facility] Comment on above: Performed By: #### Dora OTT, [id number], [id number] ####Assembly Machine Tender: MARY SOTELO ([id number])[facility] ([facility])[address] [place] [address] [place] Chloride [Moles/Vol] 97 mmol/L Low 98-107 [facility] Comment on above: Performed By: #### Dora ABDante, [id number], [id number] ####Assembly Machine Tender: MARY SOTELO ([id number])[facility] ([facility])[address] [place] [address] [place] CO2 [Moles/Vol] 24 mmol/L Normal 22-30 [facility] Comment on above: Performed By: #### Dora AB15, [id number], PAB086 ####Assembly Machine Tender: MARY SOTELO ([id number])[facility] ([facility])[address] [place] [address] [place] Creatinine [Mass/Vol] 3.58 mg/dL High 0.52-1.04 [facility] Comment on above: Performed By: #### L AB15, [id number], TGO680 ####Assembly Machine Tender: MARY SOTELO ([id number])[facility])[address] [place] [address] GLOMERULAR FILTRATION RATE ML/MIN/1.73 SQ M.PREDICTED 13.6 mL/min/1.73m*2 Low >60.0 [facility] Comment on above: Result Comment: Calc ulation based on the Chronic Kidney Disease Epidemiology Collaboration (CKD-EPI) equation refit without adjustment for race Performed By: #### L AB15, GJT986, SJA012 ####Assembly Machine Tender: MARY SOTELO ([id number])[facility])[address] [place] [address] Glucose [Mass/Vol] 150 mg/dL High 70-100 [facility] Comment on above: Performed By: #### Dora AB15, OHV241, IZP658 ####Assembly Machine Tender: MARY SOTELO ([id number])[facility] ([facility])[address] [place] [address] Potassium [Moles/Vol] 4.0 mmol/L Normal 3.5-5.1 [facility] Comment on above: Performed By: #### L AB15, [id number], [id number] ####Assembly Machine Tender: MARY SOTELO ([id number])[facility])[address] [place] [address] Sodium [Moles/Vol] 129 mmol/L Low 135-145 [facility] Comment on above: Performed By: #### L AB15, [id number], EXF422 ####Assembly Machine Tender: MARY SOTELO ([id number])[facility])[address] [place] [address] [place] Urea nitrogen [Mass/Vol] 41 mg/dL High 7-17 [facility] Comment on above: Performed By: #### L AB15, WPY799, SED797 ####Assembly Machine Tender: MARY SOTELO ([id number])[facility])[address] [place] [address] BLOOD GAS ARTERIALon 10-18-2 024 Base excess Calc (Bld) [Moles/Vol] -0.7000 mmol/L Normal -3.0-3.0 [facility] Comment on above: Performed By: #### L AB76 ####Assembly Machine Tender: MARY SOTELO ([id number])[facility])[address] [place] [address] CO2 [Moles/Vol] 28.6 mmol/L High 23.0-27.0 [facility] Comment on above: Performed By: #### L AB76 ####Assembly Machine Tender: MARY SOTELO ([id number])[facility])[address] [place] [address] HCO3 (Bld) [Moles/Vol] 26.8 mmol/L High 21.0-25.0 [facility] Comment on above: Performed By: #### L AB76 ####Assembly Machine Tender: MARY SOTELO ([id number])[facility])[address] [place] [address] Hemoglobin (Bld) [Mass/Vol] 10.3 g/dL Normal Screen only [facility] Comment on above: Performed By: #### L AB76 ####Assembly Machine Tender: MARY SOTELO ([id number])[facility])[address] [place] [address] OXYGEN SATURATION (%) IN ARTERIAL BLOOD 98.1 % Normal 95.0-100.0 [facility] Comment on above: Performed By: #### L AB76 ####Assembly Machine Tender: MARY SOTELO ([id number])[facility])[address] [place] [address] PCO2 ARTERIAL 59.2 mm Hg High >35.0-<45.0 [facility] Comment on above: Performed By: #### L AB76 ####Assembly Machine Tender: MARY SOTELO ([id number])[facility])[address] [place] [address] PH ARTERIAL 7.274 Low 7.350-7.450 [facility] Comment on above: Performed By: #### L AB76 ####Assembly Machine Tender: MARY SOTELO ([id number])[facility])[address] [place] [address] PO2 ARTERIAL 113.3 mm Hg High 80.0-100.0 [facility] Comment on above: Performed By: #### L AB76 ####Assembly Machine Tender: MARY SOTELO ([id number])[facility] ([facility])[address] [place] [address] SOURCE OF OXYGEN 40% Oxygen Normal [facility] Comment on above: Performed By: #### L AB76 ####Assembly Machine Tender: MARY SOTELO ([id number])[facility])[address] [place] [address] Base excess Calc (Bld) [Moles/Vol] 0.2 mmol/L Normal -3.0-3.0 [facility] Comment on above: Performed By: #### L AB76 ####Assembly Machine Tender: MARY SOTELO ([id number])[facility] ([facility])[address] [place] [address] CO2 [Moles/Vol] 30.7 mmol/L High 23.0-27.0 [facility] Comment on above: Performed By: #### L AB76 ####Assembly Machine Tender: MARY SOTELO ([id number])[facility] ([facility])[address] [place] [address] HCO3 (Bld) [Moles/Vol] 28.6 mmol/L High 21.0-25.0 [facility] Comment on above: Performed By: #### L AB76 ####Assembly Machine Tender: MARY SOTELO ([id number])[facility])[address] [place] [address] Hemoglobin (Bld) [Mass/Vol] 10.5 g/dL Normal Screen only [facility] Comment on above: Performed By: #### L AB76 ####Assembly Machine Tender: MARY [id number])[facility] ([facility])[address] [place] [address] OXYGEN SATURATION (%) IN ARTERIAL BLOOD 96.9 % Normal 95.0-100.0 [facility] Comment on above: Performed By: #### L AB76 ####Assembly Machine Tender: MARY SOTELO ([id number])[facility] ([facility])[address] [place] [address] PCO2 ARTERIAL 67.9 mm Hg High >35.0-<45.0 [facility] Comment on above: Performed By: #### L AB76 ####Assembly Machine Tender: MARY SOTELO ([id number])[facility] ([facility])[address] [place] [address] PH ARTERIAL 7.242 Low 7.350-7.450 [facility] Comment on above: Performed By: #### L AB76 ####Assembly Machine Tender: MARY SOTELO ([id number])[facility] ([facility])[address] [place] [address] PO2 ARTERIAL 101.2 mm Hg High 80.0-100.0 [facility] Comment on above: Performed By: #### L [id number] ####Assembly Machine Tender: MARY SOTELO ([id number])[facility] ([facility])[address] [place] [address] SOURCE OF OXYGEN 40% Oxygen Normal [facility] Comment on above: Performed By: #### L [id number] ####Assembly Machine Tender: MARY SOTELO ([id number])[facility] ([facility])[address] [place] [address] Base excess Calc (Bld) [Moles/Vol] 0.5 mmol/L Normal -3.0-3.0 [facility] Comment on above: Performed By: #### L [id number] ####Assembly Machine Tender: MARY SOTELO ([id number])[facility] ([facility])[address] [place] [address] [place] CO2 [Moles/Vol] 31.0 mmol/L High 23.0-27.0 [facility] Comment on above: Performed By: #### L [id number] ####Assembly Machine Tender: MARY SOTELO ([id number])[facility] ([facility])[address] [place] [address] HCO3 (Bld) [Moles/Vol] 28.9 mmol/L High 21.0-25.0 [facility] Comment on above: Performed By: #### L [id number] ####Assembly Machine Tender: MARY SOTELO ([id number])[facility] ([facility])[address] [place] [address] Hemoglobin (Bld) [Mass/Vol] 10.4 g/dL Normal Screen only [facility] Comment on above: Performed By: #### L [id number] ####Assembly Machine Tender: MARY SOTELO ([id number])[facility])[address] [place] [address] OXYGEN SATURATION (%) IN ARTERIAL BLOOD 68.2 % Low 95.0-100.0 [facility] Comment on above: Performed By: #### L [id number] ####Assembly Machine Tender: MARY SOTELO ([id number])[facility] ([facility])[address] [place] [address] PCO2 ARTERIAL 68.4 mm Hg High >35.0-<45.0 [facility] Comment on above: Performed By: #### L [id number] ####Assembly Machine Tender: MARY SOTELO ([id number])[facility] ([facility])[address] [place] [address] PH ARTERIAL 7.244 Low 7.350-7.450 [facility] Comment on above: Performed By: #### L [id number] ####Assembly Machine Tender: MARY SOTELO ([id number])[facility] ([facility])[address] [place] [address] PO2 ARTERIAL 36.2 mm Hg Critically low 80.0-100.0 [facility] Comment on above: Performed By: #### L [id number] ####Assembly Machine Tender: MARY SOTELO ([id number])[facility] ([address] SOURCE OF OXYGEN Bi-PAP Normal [facility] Comment on above: Result Comment: 10/07 , 3 L Performed By: #### L [id number] ####Assembly Machine Tender: MARY SOTELO ([id number])[facility] ([facility])[address] [place] [address] Base excess Calc (Bld) [Moles/Vol] -1.0000 mmol/L Normal -3.0-3.0 [facility] Comment on above: Performed By: #### L [id number] ####Assembly Machine Tender: MARY SOTELO ([id number])[facility] ([facility])[address] [place] [address] CO2 [Moles/Vol] 30.1 mmol/L High 23.0-27.0 [facility] Comment on above: Performed By: #### L [id number] ####Assembly Machine Tender: MARY SOTELO ([id number])[facility] ([facility])[address] [place] [address] HCO3 (Bld) [Moles/Vol] 27.9 mmol/L High 21.0-25.0 [facility] Comment on above: Performed By: #### L [id number] ####Assembly Machine Tender: MARY SOTELO ([id number])[facility] ([facility])[address] [place] [address] Hemoglobin (Bld) [Mass/Vol] 10.1 g/dL Normal Screen only [facility] Comment on above: Performed By: #### L [id number] ####Assembly Machine Tender: MARY SOTELO ([id number])[facility] ([facility])[address] [place] [address] OXYGEN SATURATION (%) IN ARTERIAL BLOOD 92.1 % Low 95.0-100.0 [facility] Comment on above: Performed By: #### L [id number] ####Assembly Machine Tender: MARY SOTELO ([id number])[facility] ([facility])[address] [place] [address] PCO2 ARTERIAL 71.5 mm Hg High >35.0-<45.0 [facility] Comment on above: Performed By: #### L [id number] ####Assembly Machine Tender: MARY SOTELO ([id number])[facility] ([facility])[address] [place] [address] PH ARTERIAL 7.209 Low 7.350-7.450 [facility] Comment on above: Performed By: #### L [id number] ####Assembly Machine Tender: MARY SOTELO ([id number])[facility] ([facility])[address] [place] [address] PO2 ARTERIAL 63.4 mm Hg Low 80.0-100.0 [facility] Comment on above: Performed By: #### L [id number] ####Assembly Machine Tender: MARY SOTELO ([id number])[facility] ([facility])[address] [place] [address] SOURCE OF OXYGEN Nasal cannula Normal [facility] Comment on above: Result Comment: 3L Performed By: #### L [id number] ####Assembly Machine Tender: MARY SOTELO ([id number])[facility] ([facility])[address] [place] [address] Basic metabolic 1998 panelon 08-20-2024 Anion gap [Moles/Vol] 8 mmol/L 3 - 13 mmol/L [facility] Calcium [Mass/Vol] 7.8 mg/dL Low 8.4 - 10. 4 mg/dL [facility] Chloride [Moles/Vol] 97 mmol/L Low 98 - 10 7 mmol/L [facility] CO2 [Moles/Vol] 24 mmol/L 22 - 30 mmol/L [facility] Creatinine [Mass/Vol] 3.58 mg/dL High 0.52 - 1.04 mg/dL [facility] GFR/1.73 sq M.predicted (S/P/Bld) [Vol rate/Area] 13.6 mL/min Low - PINF [facility] Glucose [Mass/Vol] 150 mg/dL High 70 - 100 mg/dL [facility] Interpretation and review of laboratory results Abnormal [facility] Potassium [Moles/Vol] 4 mmol/L 3.5 - 5.1 mmol/L [facility] Sodium [Moles/Vol] 129 mmol/L Low 135 - 145 mmol/L [facility] Urea nitrogen [Mass/Vol] 41 mg/dL High 7 - 17 mg/dL [facility] CALCIUM, IONIZEDon CALCIUM IONIZED 4.30 mg/dL Normal 4.30-5.20 [facility] Comment on above: Performed By: #### L [id number] ####Assembly Machine Tender: MARY SOTELO ([id number])[facility] ([facility])[address] [place] [address] PH, IONIZED CALCIUM 7.25 Low 7.31-7.46 [facility] Comment on above: Performed By: #### L [id number] ####Assembly Machine Tender: MARY SOTELO ([id number])[facility] ([facility])[address] [place] [address] CARECOORDon 08-20-2024 CARECOORD Normal [facility] CBC W Auto Differential pane l (Bld)on 08-20-2024 Basophils (Bld) [#/Vol] 0 10*3/uL 0.0 - 0.2 10*3/uL [facility] Basophils/100 WBC (Bld) 0 % 0.0 - 2.0 % [facility] Eosinophils (Bld) [#/Vol] 0.1 10*3/uL 0.0 - 0.5 10*3/uL [facility] Eosinophils/100 WBC (Bld) 1.4 % 0.0 - 6.0 % [facility] Erythrocyte distribution width (RBC) [Ratio] 15.5 % High 11.5 - 15.0 % [facility] Hematocrit (Bld) [Volume fraction] 30.5 % Low 35.0 - 47.0 % [facility] Hemoglobin (Bld) [Mass/Vol] 9.9 g/dL Low 11.7 - 16.0 g/dL [facility] Immature granulocytes (Bld) [#/Vol] 0 10*3/uL NINF - 0.1 10*3/uL [facility] Immature granulocytes/100 WBC (Bld) 0.5 % 0.0 - 2.0 % [facility] Interpretation and review of laboratory results Abnormal [facility] Lymphocytes (Bld) [#/Vol] 0.6 10*3/uL Low 1.0 - 4.3 10*3/uL [facility] Lymphocytes/100 WBC (Bld) 10.8 % Low 15.0 - 45.0 % [facility] MCH (RBC) [Entitic mass] 29.5 pg 26.0 - 34.0 pg [facility] MCHC (RBC) [Mass/Vol] 32.5 % 30.5 - 36.0 % [facility] MCV (RBC) [Entitic vol] 90.8 fL 77.0 - 99.0 fL [facility] Monocytes (Bld) [#/Vol] 0.3 10*3/uL 0.0 - 0.9 10*3/uL [facility] Monocytes/100 WBC (Bld) 4.5 % Low 5.0 - 13.0 % [facility] Neutrophils (Bld) [#/Vol] 4.8 10*3/uL 1.8 - 7.5 10*3/uL [facility] Neutrophils/100 WBC (Bld) 82.8 % High 38.0 - 82.0 % [facility] Nucleated RBC/100 WBC (Bld) [Ratio] 0 % [facility] Platelet mean volume (Bld) [Entitic vol] 10.3 fL 9.0 - 12.7 fL [facility] Platelets (Bld) [#/Vol] 145 10*3/uL 140 - 440 10*3/uL [facility] RBC (Bld) [#/Vol] 3.36 10*6/uL Low 3.80 - 5.2 0 10*6/uL [facility] WBC (Bld) [#/Vol] 5.8 10*3/uL 3.6 - 10.7 10*3/uL [facility] CBC WITH AUTO DIFFERENTIALon 08-20-2024 Basophils (Bld) [#/Vol] 0.0 10*3/uL Normal 0.0-0.2 [facility] Comment on above: Performed By: #### L [id number] ####Assembly Machine Tender: MARY SOTELO ([id number])[facility] ([address] Basophils/100 WBC (Bld) 0.0 % Normal 0.0-2.0 [facility] Comment on above: Performed By: #### L [id number] ####Assembly Machine Tender: MARY SOTELO ([id number])[facility])[address] [place] [address] Eosinophils (Bld) [#/Vol] 0.1 10*3/uL Normal 0.0-0.5 [facility] Comment on above: Performed By: #### L [id number] ####Assembly Machine Tender: MARY SOTELO ([id number])[facility])[address] [place] [address] Eosinophils/100 WBC (Bld) 1.4 % Normal 0.0-6.0 [facility] Comment on above: Performed By: #### L [id number] ####Assembly Machine Tender: MARY SOTELO ([id number])[address] Erythrocyte distribution width (RBC) [Ratio] 15.5 % High 11.5-15.0 [facility] Comment on above: Performed By: #### L [id number] ####Assembly Machine Tender: MARY SOTELO ([id number])[address] Hematocrit (Bld) [Volume fraction] 30.5 % Low 35.0-47.0 [facility] Comment on above: Performed By: #### L [id number] ####Assembly Machine Tender: MARY SOTELO ([id number])[address] Hemoglobin (Bld) [Mass/Vol] 9.9 g/dL Low 11.7-16.0 [facility] Comment on above: Performed By: #### L [id number] ####Assembly Machine Tender: MARY SOTELO ([id number])[address] IMMATURE GRANS % 0.5 % Normal 0.0-2.0 [facility] Comment on above: Performed By: #### L [id number] ####Assembly Machine Tender: MARY SOTELO ([id number])[facility] [address] IMMATURE GRANS ABSOLUTE 0.0 10*3/uL Normal <0.1 [facility] Comment on above: Performed By: #### L [id number] ####Assembly Machine Tender: MARY SOTELO ([id number])[facility])[address] [place] [address] Lymphocytes (Bld) [#/Vol] 0.6 10*3/uL Low 1.0-4.3 [facility] Comment on above: Performed By: #### L [id number] ####Assembly Machine Tender: MARY SOTELO ([id number])[address] Lymphocytes/100 WBC (Bld) 10.8 % Low 15.0-45.0 [facility] Comment on above: Performed By: #### L [id number] ####Assembly Machine Tender: MARY SOTELO ([id number])[facility])[address] [place] [address] MCH (RBC) [Entitic mass] 29.5 pg Normal 26.0-34.0 [facility] Comment on above: Performed By: #### L [id number] ####Assembly Machine Tender: MARY SOTELO ([id number])[address] MCHC 32.5 % Normal 30.5-36.0 [facility] Comment on above: Performed By: #### L [id number] ####Assembly Machine Tender: MARY SOTELO ([id number])[facility])[address] [place] [address] MCV (RBC) [Entitic vol] 90.8 fL Normal 77.0-99.0 [facility] Comment on above: Performed By: #### L [id number] ####Assembly Machine Tender: MARY SOTELO ([id number])[address] Monocytes (Bld) [#/Vol] 0.3 10*3/uL Normal 0.0-0.9 [facility] Comment on above: Performed By: #### L [id number] ####Assembly Machine Tender: MARY SOTELO ([id number])[facility])[address] [place] [address] Monocytes/100 WBC (Bld) 4.5 % Low 5.0-13.0 [facility] Comment on above: Performed By: #### L [id number] ####Assembly Machine Tender: MARY SOTELO ([id number])[facility] ([facility])[address] [place] [address] NEUTROPHILS ABSOLUTE 4.8 10*3/uL Normal 1.8-7.5 [facility] Comment on above: Performed By: #### L [id number] ####Assembly Machine Tender: MARY SOTELO ([id number])[facility])[address] [place] [address] Neutrophils/100 WBC (Bld) 82.8 % High 38.0-82.0 [facility] Comment on above: Performed By: #### L [id number] ####Assembly Machine Tender: MARY SOTELO ([id number])[facility] ([facility])[address] [place] [address] NRBC 0.0 /100 WBCs Normal 0.0-2.0 [facility] Comment on above: Performed By: #### L [id number] ####Assembly Machine Tender: MARY SOTELO ([id number])[facility])[address] [place] [address] Platelet mean volume (Bld) [Entitic vol] 10.3 fL Normal 9.0-12.7 [facility] Comment on above: Performed By: #### L [id number] ####Assembly Machine Tender: MARY SOTELO ([id number])[facility] ([facility])[address] [place] [address] Platelets (Bld) [#/Vol] 145 10*3/uL Normal 140-440 [facility] Comment on above: Performed By: #### L [id number] ####Assembly Machine Tender: MARY SOTELO ([id number])[facility] ([facility])[address] [place] [address] RBC (Bld) [#/Vol] 3.36 10*6/uL Low 3.80-5.20 [facility] Comment on above: Performed By: #### L [id number] ####Assembly Machine Tender: MARY SOTELO ([id number])[facility] ([facility])[address] [place] [address] WBC (Bld) [#/Vol] 5.8 10*3/uL Normal 3.6-10.7 [facility] Comment on above: Performed By: #### L [id number] ####Assembly Machine Tender: MAYR SOTELO ([id number])[facility] ([facility])[address] [place] [address] Calcium.ionized [Moles/Vol]O rdered By: Fredy Friend on 08-20-2024 Calcium.ionized (Bld) [Moles/Vol] 4.3 mg/dL 4.30 - 5.20 mg/dL [facility] Interpretation and review of laboratory results Abnormal [facility] PH, IONIZED CALCIUM 7.25 Low 7.31 - 7.46 [facility] Consulton 08-20-2024 Consult Normal [facility] Laboratory - Chemistry and C hemistry - challengeon 08-20-2024 Base excess Calc (Bld) [Moles/Vol] -0.7000 mmol/L -3.0 - 3.0 mmol/L [facility] CO2 (Bld) [Partial pressure] 59.2 mm[Hg] High - PINF [facility] CO2 [Moles/Vol] 28.6 mmol/L High 23.0 - 27.0 mmol/L [facility] HCO3 (Bld) [Moles/Vol] 26.8 mmol/L High 21.0 - 25.0 mmol/L [facility] Oxygen (Bld) [Partial pressure] 113.3 mm[Hg] High [facility] pH (Bld) 7.274 [pH] Low 7.350 - 7.450 [facility] Glucose [Mass/Vol] 124 mg/dL High 70 - 100 mg/dL [facility] Base excess Calc (Bld) [Moles/Vol] 0.2 mmol/L -3.0 - 3.0 mmol/L [facility] CO2 (Bld) [Partial pressure] 67.9 mm[Hg] High - PINF [facility] CO2 [Moles/Vol] 30.7 mmol/L High 23.0 - 27.0 mmol/L [facility] HCO3 (Bld) [Moles/Vol] 28.6 mmol/L High 21.0 - 25.0 mmol/L [facility] Oxygen (Bld) [Partial pressure] 101.2 mm[Hg] High [facility] pH (Bld) 7.242 [pH] Low 7.350 - 7.450 [facility] Base excess Calc (Bld) [Moles/Vol] 0.5 mmol/L -3.0 - 3.0 mmol/L [facility] CO2 (Bld) [Partial pressure] 68.4 mm[Hg] High - PINF [facility] CO2 [Moles/Vol] 31 mmol/L High 23.0 - 27.0 mmol/L [facility] HCO3 (Bld) [Moles/Vol] 28.9 mmol/L High 21.0 - 25.0 mmol/L [facility] Oxygen (Bld) [Partial pressure] 36.2 mm[Hg] Critically low [facility] pH (Bld) 7.244 [pH] Low 7.350 - 7.450 [facility] Glucose [Mass/Vol] 185 mg/dL High 70 - 100 mg/dL [facility] Glucose [Mass/Vol] 158 mg/dL High 70 - 100 mg/dL [facility] Magnesium [Mass/Vol] 2 mg/dL 1.6 - 2 .3 mg/dL [facility] Laboratory - Chemistry and C hemistry - challengeOrdered By: Audrey Blanchard on 08-20-2024 Base excess Calc (Bld) [Moles/Vol] -1 mmol/L -3.0 - 3.0 mmol/L [facility] CO2 (Bld) [Partial pressure] 71.5 mm[Hg] High - PINF [facility] CO2 [Moles/Vol] 30.1 mmol/L High 23.0 - 27.0 mmol/L [facility] HCO3 (Bld) [Moles/Vol] 27.9 mmol/L High 21.0 - 25.0 mmol/L [facility] Oxygen (Bld) [Partial pressure] 63.4 mm[Hg] Low [facility] pH (Bld) 7.209 [pH] Low 7.350 - 7.450 [facility] - Hematology and Cell countson 08-20-2024 Hemoglobin (Bld) [Mass/Vol] 10.3 g/dL Screen only [facility] Hemoglobin (Bld) [Mass/Vol] 10.5 g/dL Screen only [facility] Hemoglobin (Bld) [Mass/Vol] 10.4 g/dL Screen only [facility] Laboratory - Hematology and Cell countsOrdered By: Audrey Blanchard on 08-20-2024 Hemoglobin (Bld) [Mass/Vol] 10.1 g/dL Screen only [facility] MAGNESIUMon 08-20-2024 Magnesium [Mass/Vol] 2.0 mg/dL Normal 1.6-2.3 [facility] Comment on above: Performed By: #### L AB15, [id number], [id number] ####Assembly Machine Tender: MARY SOTELO ([id number])[address] No Panel Informationon 08-20 Interpretation and review of laboratory results Abnormal [facility] Source Of Oxygen 40% Oxygen [facility] Interpretation and review of laboratory results Abnormal [facility] Interpretation and review of laboratory results Abnormal [facility] Source Of Oxygen 40% Oxygen [facility] Interpretation and review of laboratory results Abnormal [facility] Source Of Oxygen Bi-PAP [facility] Interpretation and review of laboratory results Abnormal [facility] Interpretation and review of laboratory results Abnormal [facility] Interpretation and review of laboratory results Normal [facility] No Panel InformationOrdered By: Audrey Blanchard on 08-20-2024 Interpretation and review of laboratory results Abnormal [facility] Source Of Oxygen Nasal cannula [facility] PHOSPHORUSon 08-20-2024 Phosphate [Mass/Vol] 4.1 mg/dL Normal 2.5-4.5 [facility] Comment on above: Performed By: #### L AB15, [id number], [id number] ####Assembly Machine Tender: MARY SOTELO ([id number])[facility] ([facility])[address] [place] [address] [place] Phosphate [Moles/Vol]on 08-03 Phosphate [Mass/Vol] 4.1 mg/dL 2.5 - 4 .5 mg/dL [facility] Progress Noteon 08-20-2024 Progress Note OCCUPATIONAL THERAPY Attempted OT services, pt on hold due to pt unable to stay aroused/limited responsiveness. Will reattempt when pt is alert/able to participate. Normal [facility] Progress Note Normal [facility] Progress Note Normal [facility] Progress Note Normal [facility] Progress Note Normal [facility] BASIC METABOLIC PANELon 08-03 Anion gap [Moles/Vol] 3 mmol/L Normal 3-13 [facility] Comment on above: Performed By: #### L AB113, LAB15, [id number], [id number] ####Assembly Machine Tender: MARY SOTELO ([id number])[facility] ([facility])[address] [place] [address] [place] Calcium [Mass/Vol] 7.4 mg/dL Low 8.4-10.4 [facility] Comment on above: Performed By: #### L AB113, LAB15, [id number], [id number] ####Assembly Machine Tender: MARY SOTELO ([id number])[facility] ([facility])[address] [place] [address] [place] Chloride [Moles/Vol] 95 mmol/L Low 98-107 [facility] Comment on above: Performed By: #### L AB113, LAB15, [id number], [id number] ####Assembly Machine Tender: MARY SOTELO ([id number])[facility] ([facility])[address] [place] [address] [place] CO2 [Moles/Vol] 28 mmol/L Normal 22-30 [facility] Comment on above: Performed By: #### L AB113, LAB15, [id number], [id number] ####Assembly Machine Tender: MARY SOTELO ([id number])[facility])[address] [place] [address] Creatinine [Mass/Vol] 2.98 mg/dL High 0.52-1.04 [facility] Comment on above: Performed By: #### L AB113, LAB15, [id number], [id number] ####Assembly Machine Tender: MARY SOTELO ([id number])[facility])[address] [place] [address] GLOMERULAR FILTRATION RATE ML/MIN/1.73 SQ M.PREDICTED 17.0 mL/min/1.73m*2 Low >60.0 [facility] Comment on above: Result Comment: Calc ulation based on the Chronic Kidney Disease Epidemiology Collaboration (CKD-EPI) equation refit without adjustment for race Performed By: #### L AB113, LAB15, [id number], [id number] ####Assembly Machine Tender: MARY SOTELO ([id number])[facility])[address] [place] [address] Glucose [Mass/Vol] 626 mg/dL Critically high 70-100 [facility] Comment on above: Performed By: #### L AB113, LAB15, [id number], [id number] ####Assembly Machine Tender: MARY SOTELO ([id number])[facility])[address] [place] [address] Potassium [Moles/Vol] 4.4 mmol/L Normal 3.5-5.1 [facility] Comment on above: Performed By: #### L AB113, LAB15, [id number], [id number] ####Assembly Machine Tender: MARY SOTELO ([id number])[facility] [place] [address] [place] Sodium [Moles/Vol] 126 mmol/L Low 135-145 [facility] Comment on above: Performed By: #### L AB113, LAB15, [id number], [id number] ####Assembly Machine Tender: MARY SOTELO ([id number])[facility])[address] [place] [address] [place] Urea nitrogen [Mass/Vol] 28 mg/dL High 7-17 [facility] Comment on above: Performed By: #### L AB113, LAB15, [id number], [id number] ####Assembly Machine Tender: MARY SOTELO ([id number])[facility] ([facility])[address] [place] [address] BETA HYDROXYBUTYRATEon 08-19 BETA HYDROXYBUTYRATE 7.01 mg/dL High 0.20-2.81 [facility] Comment on above: Performed By: #### L AB113, LAB15, [id number], [id number] ####Assembly Machine Tender: MARY SOTELO ([id number])[facility] ([facility])[address] [place] [address] Bacteria identified Cx Nom ( Bld)on 08-19-2024 Interpretation and review of laboratory results Normal [facility] Basic metabolic 1998 panelon 08-19-2024 Anion gap [Moles/Vol] 3 mmol/L 3 - 13 mmol/L [facility] Calcium [Mass/Vol] 7.4 mg/dL Low 8.4 - 10. 4 mg/dL [facility] Chloride [Moles/Vol] 95 mmol/L Low 98 - 10 7 mmol/L [facility] CO2 [Moles/Vol] 28 mmol/L 22 - 30 mmol/L [facility] Creatinine [Mass/Vol] 2.98 mg/dL High 0.52 - 1.04 mg/dL [facility] GFR/1.73 sq M.predicted (S/P/Bld) [Vol rate/Area] 17 mL/min Low - PINF [facility] Glucose [Mass/Vol] 626 mg/dL Critically high 70 - 1 00 mg/dL [facility] Interpretation and review of laboratory results Abnormal [facility] Potassium [Moles/Vol] 4.4 mmol/L 3.5 - 5.1 mmol/L [facility] Sodium [Moles/Vol] 126 mmol/L Low 135 - 145 mmol/L [facility] Urea nitrogen [Mass/Vol] 28 mg/dL High 7 - 17 mg/dL [facility] CALCIUM, IONIZEDon CALCIUM IONIZED 4.20 mg/dL Low 4.30-5.20 [facility] [facility] Comment on above: Performed By: #### L [id number] ####Assembly Machine Tender: MARY SOTELO ([id number])[facility] [place] [address] PH, IONIZED CALCIUM 7.21 Low 7.31-7.46 [facility] Comment on above: Performed By: #### L [id number] ####Assembly Machine Tender: MARY SOTELO ([id number])[facility] [place] [address] CBC W Auto Differential pane l (Bld)on 08-19-2024 Basophils (Bld) [#/Vol] 0 10*3/uL 0.0 - 0.2 10*3/uL [facility] Basophils/100 WBC (Bld) 0.3 % 0.0 - 2.0 % [facility] [employer] Eosinophils (Bld) [#/Vol] 0.1 10*3/uL 0.0 - 0.5 10*3/uL [facility] Eosinophils/100 WBC (Bld) 2.5 % 0.0 - 6.0 % [employer] Erythrocyte distribution width (RBC) [Ratio] 15.6 % High 11.5 - 15.0 % [employer] Hematocrit (Bld) [Volume fraction] 29.5 % Low 35.0 - 47.0 % [employer] Hemoglobin (Bld) [Mass/Vol] 9.3 g/dL Low 11.7 - 16.0 g/dL [facility] [employer] Immature granulocytes (Bld) [#/Vol] 0 10*3/uL NINF - 0.1 10*3/uL [employer] Immature granulocytes/100 WBC (Bld) 0.3 % 0.0 - 2.0 % [facility] [employer] Interpretation and review of laboratory results Abnormal [facility] [employer] Lymphocytes (Bld) [#/Vol] 0.6 10*3/uL Low 1.0 - 4.3 10*3/uL [employer] Lymphocytes/100 WBC (Bld) 14.8 % Low 15.0 - 45.0 % [facility] [employer] MCH (RBC) [Entitic mass] 29.3 pg 26.0 - 34.0 pg [employer] MCHC (RBC) [Mass/Vol] 31.5 % 30.5 - 36.0 % [employer] MCV (RBC) [Entitic vol] 93.1 fL 77.0 - 99.0 fL [facility] Monocytes (Bld) [#/Vol] 0.3 10*3/uL 0.0 - 0.9 10*3/uL [facility] Monocytes/100 WBC (Bld) 6.8 % 5.0 - 13.0 % [facility] Neutrophils (Bld) [#/Vol] 3 10*3/uL 1.8 - 7.5 10*3/uL [facility] Neutrophils/100 WBC (Bld) 75.3 % 38.0 - 82.0 % [facility] Nucleated RBC/100 WBC (Bld) [Ratio] 0 % [facility] [employer] Platelet mean volume (Bld) [Entitic vol] 10.6 fL 9.0 - 12.7 fL [facility] Platelets (Bld) [#/Vol] 114 10*3/uL Low 140 - 440 10*3/uL [facility] RBC (Bld) [#/Vol] 3.17 10*6/uL Low 3.80 - 5.2 0 10*6/uL [facility] WBC (Bld) [#/Vol] 4 10*3/uL 3.6 - 10.7 10*3/uL [facility] CBC WITH AUTO DIFFERENTIALon 08-19-2024 Basophils (Bld) [#/Vol] 0.0 10*3/uL Normal 0.0-0.2 [facility] Comment on above: Performed By: #### L [id number] ####Assembly Machine Tender: MARY [id number])[address] Basophils/100 WBC (Bld) 0.3 % Normal 0.0-2.0 [facility] Comment on above: Performed By: #### L [id number] ####Assembly Machine Tender: MARY [id number])[address] Eosinophils (Bld) [#/Vol] 0.1 10*3/uL Normal 0.0-0.5 [facility] Comment on above: Performed By: #### L [id number] ####Assembly Machine Tender: MARY [id number])[facility] ([facility])[address] [place] [address] Eosinophils/100 WBC (Bld) 2.5 % Normal 0.0-6.0 [facility] Comment on above: Performed By: #### L [id number] ####Assembly Machine Tender: MARY SOTELO ([id number])[facility])[address] [place] [address] Erythrocyte distribution width (RBC) [Ratio] 15.6 % High 11.5-15.0 [facility] Comment on above: Performed By: #### L [id number] ####Assembly Machine Tender: MARY SOTELO ([id number])[facility])[address] [place] [address] Hematocrit (Bld) [Volume fraction] 29.5 % Low 35.0-47.0 [facility] Comment on above: Performed By: #### L [id number] ####Assembly Machine Tender: MARY SOTELO ([id number])[facility])[address] [place] [address] Hemoglobin (Bld) [Mass/Vol] 9.3 g/dL Low 11.7-16.0 [facility] Comment on above: Performed By: #### L [id number] ####Assembly Machine Tender: MARY SOTELO ([id number])[facility])[address] [place] [address] IMMATURE GRANS % 0.3 % Normal 0.0-2.0 [facility] Comment on above: Performed By: #### L [id number] ####Assembly Machine Tender: MARY SOTELO ([id number])[facility])[address] [place] [address] IMMATURE GRANS ABSOLUTE 0.0 10*3/uL Normal <0.1 [facility] Comment on above: Performed By: #### L [id number] ####Assembly Machine Tender: MARY SOTELO ([id number])[facility])[address] [place] [address] [place] Lymphocytes (Bld) [#/Vol] 0.6 10*3/uL Low 1.0-4.3 [facility] Comment on above: Performed By: #### L [id number] ####Assembly Machine Tender: MARY SOTELO ([id number])[facility])[address] [place] [address] Lymphocytes/100 WBC (Bld) 14.8 % Low 15.0-45.0 [facility] Comment on above: Performed By: #### L [id number] ####Assembly Machine Tender: MARY SOTELO ([id number])[facility])[address] [place] [address] MCH (RBC) [Entitic mass] 29.3 pg Normal 26.0-34.0 [facility] Comment on above: Performed By: #### L [id number] ####Assembly Machine Tender: MARY SOTELO ([id number])[facility])[address] [place] [address] MCHC 31.5 % Normal 30.5-36.0 [facility] Comment on above: Performed By: #### L [id number] ####Assembly Machine Tender: MARY SOTELO ([id number])[facility])[address] [place] [address] MCV (RBC) [Entitic vol] 93.1 fL Normal 77.0-99.0 [facility] Comment on above: Performed By: #### L [id number] ####Assembly Machine Tender: MARY SOTELO ([id number])[facility])[address] [place] [address] Monocytes (Bld) [#/Vol] 0.3 10*3/uL Normal 0.0-0.9 [facility] Comment on above: Performed By: #### L [id number] ####Assembly Machine Tender: MARY SOTELO ([id number])[facility])[address] [place] [address] Monocytes/100 WBC (Bld) 6.8 % Normal 5.0-13.0 [facility] Comment on above: Performed By: #### L [id number] ####Assembly Machine Tender: MARY SOTELO ([id number])[facility] ([facility])[address] [place] [address] NEUTROPHILS ABSOLUTE 3.0 10*3/uL Normal 1.8-7.5 [facility] Comment on above: Performed By: #### L [id number] ####Assembly Machine Tender: MARY SOTELO ([id number])[facility] ([facility])[address] [place] [address] Neutrophils/100 WBC (Bld) 75.3 % Normal 38.0-82.0 [facility] Comment on above: Performed By: #### L [id number] ####Assembly Machine Tender: MARY SOTELO ([id number])[facility])[address] [place] [address] NRBC 0.0 /100 WBCs Normal 0.0-2.0 [facility] Comment on above: Performed By: #### L [id number] ####Assembly Machine Tender: MARY SOTELO ([id number])[facility] ([facility])[address] [place] [address] Platelet mean volume (Bld) [Entitic vol] 10.6 fL Normal 9.0-12.7 [facility] Comment on above: Performed By: #### L [id number] ####Assembly Machine Tender: MARY SOTELO ([id number])[facility])[address] [place] [address] [place] Platelets (Bld) [#/Vol] 114 10*3/uL Low 140-440 [facility] Comment on above: Performed By: #### L [id number] ####Assembly Machine Tender: MARY SOTELO ([id number])[facility])[address] [place] [address] RBC (Bld) [#/Vol] 3.17 10*6/uL Low 3.80-5.20 [facility] Comment on above: Performed By: #### L [id number] ####Assembly Machine Tender: MARY SOTELO ([id number])[facility] ([facility])[address] [place] [address] WBC (Bld) [#/Vol] 4.0 10*3/uL Normal 3.6-10.7 [facility] Comment on above: Performed By: #### L [id number] ####Assembly Machine Tender: MARY SOTELO ([id number])[facility] [place] [address] Calcium.ionized [Moles/Vol]O rdered By: Yoana Boyd on 08-19-2024 Calcium.ionized (Bld) [Moles/Vol] 4.2 mg/dL Low 4.30 - 5.20 mg/dL [facility] Interpretation and review of laboratory results Abnormal [facility] PH, IONIZED CALCIUM 7.21 Low 7.31 - 7.46 [facility] GLUCOSE, RANDOMon 08-19-2024 Glucose [Mass/Vol] 653 mg/dL Critically high 70-100 [facility] Comment on above: Performed By: #### L [id number] ####Assembly Machine Tender: MARY SOTELO ([id number])[facility] [place] [address] Glucose (Bld) [Mass/Vol]on 1 Glucose [Mass/Vol] 653 mg/dL Critically high 70 - 1 00 mg/dL [facility] Interpretation and review of laboratory results Abnormal [facility] Laboratory - Chemistry and C hemistry - challengeon 08-19-2024 Glucose [Mass/Vol] 118 mg/dL High 70 - 100 mg/dL [facility] Glucose [Mass/Vol] 162 mg/dL High 70 - 100 mg/dL [facility] Glucose [Mass/Vol] 268 mg/dL High 70 - 100 mg/dL [facility] Glucose [Mass/Vol] 414 mg/dL High 70 - 100 mg/dL [facility] Glucose [Mass/Vol] mg/dL High 70 - 100 mg/dL [facility] Glucose [Mass/Vol] mg/dL High 70 - 100 mg/dL [facility] Glucose [Mass/Vol] mg/dL High 70 - 100 mg/dL [facility] Beta hydroxybutyrate [Mass/Vol] 7.01 mg/dL High 0.20 - 2.81 mg/dL [facility] Magnesium [Mass/Vol] 2 mg/dL 1.6 - 2 .3 mg/dL [facility] Glucose [Mass/Vol] mg/dL High 70 - 100 mg/dL [facility] Laboratory - Microbiology an d Antimicrobial susceptibilityon 08-19-2024 Bacteria identified Cx Nom (Bld) No growth at 5 days [facility] MAGNESIUMon 08-19-2024 Magnesium [Mass/Vol] 2.0 mg/dL Normal 1.6-2.3 [facility] Comment on above: Performed By: #### L AB113, LAB15, [id number], [id number] ####Assembly Machine Tender: MARY SOTELO ([id number])[facility] ([address] No Panel Informationon 08-19 Interpretation and review of laboratory results Abnormal [facility] Interpretation and review of laboratory results Abnormal [facility] Interpretation and review of laboratory results Abnormal [facility] Interpretation and review of laboratory results Abnormal [facility] Interpretation and review of laboratory results Abnormal [facility] Interpretation and review of laboratory results Abnormal [facility] Interpretation and review of laboratory results Abnormal [facility] Interpretation and review of laboratory results Abnormal [facility] Interpretation and review of laboratory results Normal [facility] Interpretation and review of laboratory results Abnormal [facility] Nursing Noteon 08-19-2024 Nursing Note Pt MBS for dinner wa s 162 orders for 8 scheduled H. Log and [address] Baires paged. Orders to give SSI and Hold scheduled 8 units if pt does not eat dinner. Pt did not want to eat dinner; 8 units held Normal [facility] Nursing Note Pt seemingly more confused and a little more lethargic than this morning. Med Team paged to make aware Normal [facility] Nursing Note Pt recheck MBS was 527. Dr. Bijan Jarrett paged to make aware Normal [facility] Nursing Note Pt MBS still reading HI. Med Team at bedside. Physician stated no need to draw confirmation, but to give 1 time 15 unit of R and recheck in one hour. Normal [facility] Nursing Note Dr. Bijan Jarrett paged wi th repeat glucose of 653 Normal [facility] Nursing Note Critical Care lab called with result of 626. Med Team A paged regarding. Normal [facility] PHOSPHORUSon 08-19-2024 Phosphate [Mass/Vol] 3.8 mg/dL Normal 2.5-4.5 [facility] Comment on above: Performed By: #### L AB113, LAB15, [id number], [id number] ####Assembly Machine Tender: MARY SOTELO ([id number])[facility] ([facility])[address] [place] [address] [place] Phosphate [Moles/Vol]on 08-03 Phosphate [Mass/Vol] 3.8 mg/dL 2.5 - 4 .5 mg/dL [facility] Progress Noteon 08-19-2024 [facility] Progress [facility] Progress Note [facility] Progress Note Normal [facility] BASIC METABOLIC PANELon 08-03 Anion gap [Moles/Vol] 4 mmol/L Normal 3-13 [facility] Comment on above: Performed By: #### L AB113, [id number], LAB15 ####Assembly Machine Tender: MARY SOTELO ([id number])[facility] ([facility])[address] [place] [address] [place] Calcium [Mass/Vol] 7.9 mg/dL Low 8.4-10.4 [facility] Comment on above: Performed By: #### L AB113, [id number], LAB15 ####Assembly Machine Tender: MARY SOTELO ([id number])[facility] ([facility])[address] [place] [address] [place] Chloride [Moles/Vol] 99 mmol/L Normal 98-107 [facility] Comment on above: Performed By: #### L AB113, [id number], LAB15 ####Assembly Machine Tender: MARY SOTELO ([id number])[facility] ([facility])[address] [place] [address] [place] CO2 [Moles/Vol] 27 mmol/L Normal 22-30 [facility] Comment on above: Performed By: #### L AB113, [id number], LAB15 ####Assembly Machine Tender: MARY SOTELO ([id number])[facility] ([facility])[address] [place] [address] Creatinine [Mass/Vol] 3.57 mg/dL High 0.52-1.04 [facility] Comment on above: Performed By: #### L AB113, [id number], LAB15 ####Assembly Machine Tender: MARY SOTELO ([id number])[facility] ([facility])[address] [place] [address] GLOMERULAR FILTRATION RATE ML/MIN/1.73 SQ M.PREDICTED 13.7 mL/min/1.73m*2 Low >60.0 [facility] Comment on above: Result Comment: Calc ulation based on the Chronic Kidney Disease Epidemiology Collaboration (CKD-EPI) equation refit without adjustment for race Performed By: #### Dora AB113, [id number], LAB15 ####Assembly Machine Tender: MARY SOTELO ([id number])[facility] ([facility])[address] [place] [address] Glucose [Mass/Vol] 281 mg/dL High 70-100 [facility] Comment on above: Performed By: #### L AB113, COD692, LAB15 ####Assembly Machine Tender: MARY SOTELO ([id number])[facility] ([facility])[address] [place] [address] [place] Potassium [Moles/Vol] 3.8 mmol/L Normal 3.5-5.1 [facility] Comment on above: Performed By: #### L AB113, [id number], LAB15 ####Assembly Machine Tender: MARY SOTELO ([id number])[facility])[address] [place] [address] Sodium [Moles/Vol] 130 mmol/L Low 135-145 [facility] Comment on above: Performed By: #### L AB113, [id number], LAB15 ####Assembly Machine Tender: MARY SOTELO ([id number])[facility] ([facility])[address] [place] [address] [place] Urea nitrogen [Mass/Vol] 35 mg/dL High 7-17 [facility] Comment on above: Performed By: #### L AB113, [id number], LAB15 ####Assembly Machine Tender: MARY SOTELO ([id number])[facility] ([facility])[address] [place] [address] Basic metabolic 1998 panelon 08-18-2024 Anion gap [Moles/Vol] 4 mmol/L 3 - 13 mmol/L [facility] Calcium [Mass/Vol] 7.9 mg/dL Low 8.4 - 10. 4 mg/dL [facility] Chloride [Moles/Vol] 99 mmol/L 98 - 10 7 mmol/L [facility] CO2 [Moles/Vol] 27 mmol/L 22 - 30 mmol/L [facility] Creatinine [Mass/Vol] 3.57 mg/dL High 0.52 - 1.04 mg/dL [facility] GFR/1.73 sq M.predicted (S/P/Bld) [Vol rate/Area] 13.7 mL/min Low - PINF [facility] Glucose [Mass/Vol] 281 mg/dL High 70 - 100 mg/dL [facility] Interpretation and review of laboratory results Abnormal [facility] Potassium [Moles/Vol] 3.8 mmol/L 3.5 - 5.1 mmol/L [facility] Sodium [Moles/Vol] 130 mmol/L Low 135 - 145 mmol/L [facility] Urea nitrogen [Mass/Vol] 35 mg/dL High 7 - 17 mg/dL [facility] CALCIUM, IONIZEDon 4 CALCIUM IONIZED 4.50 mg/dL Normal 4.30-5.20 [facility] Comment on above: Performed By: #### L AB54 ####Assembly Machine Tender: MARY SOTELO ([id number])[facility] ([facility])[address] [place] [address] PH, IONIZED CALCIUM 7.26 Low 7.31-7.46 [facility] Comment on above: Performed By: #### L AB54 ####Assembly Machine Tender: MARY SOTELO ([id number])[facility] ([facility])[address] [place] [address] CARECOORDon 08-18-2024 CARECOORD Normal [facility] CBC W Auto Differential pane l (Bld)on 08-18-2024 Basophils (Bld) [#/Vol] 0 10*3/uL 0.0 - 0.2 10*3/uL [facility] Basophils/100 WBC (Bld) 0.2 % 0.0 - 2.0 % [facility] Eosinophils (Bld) [#/Vol] 0.1 10*3/uL 0.0 - 0.5 10*3/uL [facility] Eosinophils/100 WBC (Bld) 2.9 % 0.0 - 6.0 % [facility] Erythrocyte distribution width (RBC) [Ratio] 15.7 % High 11.5 - 15.0 % [facility] Hematocrit (Bld) [Volume fraction] 29.1 % Low 35.0 - 47.0 % [facility] Hemoglobin (Bld) [Mass/Vol] 9.2 g/dL Low 11.7 - 16.0 g/dL [facility] Immature granulocytes (Bld) [#/Vol] 0 10*3/uL NINF - 0.1 10*3/uL [facility] Immature granulocytes/100 WBC (Bld) 0.7 % 0.0 - 2.0 % [facility] Interpretation and review of laboratory results Abnormal [facility] IPF 4 [facility] Lymphocytes (Bld) [#/Vol] 0.8 10*3/uL Low 1.0 - 4.3 10*3/uL [facility] Lymphocytes/100 WBC (Bld) 17.9 % 15.0 - 45.0 % [facility] MCH (RBC) [Entitic mass] 29.1 pg 26.0 - 34.0 pg [facility] MCHC (RBC) [Mass/Vol] 31.6 % 30.5 - 36.0 % [facility] MCV (RBC) [Entitic vol] 92.1 fL 77.0 - 99.0 fL [facility] Monocytes (Bld) [#/Vol] 0.4 10*3/uL 0.0 - 0.9 10*3/uL [facility] Monocytes/100 WBC (Bld) 7.8 % 5.0 - 13.0 % [facility] Neutrophils (Bld) [#/Vol] 3.2 10*3/uL 1.8 - 7.5 10*3/uL [facility] Neutrophils/100 WBC (Bld) 70.5 % 38.0 - 82.0 % [facility] Nucleated RBC/100 WBC (Bld) [Ratio] 0 % [facility] Platelet mean volume (Bld) [Entitic vol] 10.2 fL 9.0 - 12.7 fL [facility] Platelets (Bld) [#/Vol] 111 10*3/uL Low 140 - 440 10*3/uL [facility] RBC (Bld) [#/Vol] 3.16 10*6/uL Low 3.80 - 5.2 0 10*6/uL [facility] WBC (Bld) [#/Vol] 4.5 10*3/uL 3.6 - 10.7 10*3/uL [facility] CBC WITH AUTO DIFFERENTIALon 08-18-2024 Basophils (Bld) [#/Vol] 0.0 10*3/uL Normal 0.0-0.2 [facility] Comment on above: Performed By: #### L [id number] ####Assembly Machine Tender: MARY SOTELO ([id number])[address] Basophils/100 WBC (Bld) 0.2 % Normal 0.0-2.0 [facility] Comment on above: Performed By: #### L [id number] ####Assembly Machine Tender: MARY SOTELO ([id number])[facility])[address] [place] [address] Eosinophils (Bld) [#/Vol] 0.1 10*3/uL Normal 0.0-0.5 [facility] Comment on above: Performed By: #### L [id number] ####Assembly Machine Tender: MARY SOTELO ([id number])[facility])[address] [place] [address] [place] Eosinophils/100 WBC (Bld) 2.9 % Normal 0.0-6.0 [facility] Comment on above: Performed By: #### L [id number] ####Assembly Machine Tender: MARY SOTELO ([id number])[facility])[address] [place] [address] Erythrocyte distribution width (RBC) [Ratio] 15.7 % High 11.5-15.0 [facility] Comment on above: Performed By: #### L [id number] ####Assembly Machine Tender: MARY SOTELO ([id number])[facility])[address] [place] [address] Hematocrit (Bld) [Volume fraction] 29.1 % Low 35.0-47.0 [facility] Comment on above: Performed By: #### L [id number] ####Assembly Machine Tender: MARY SOTELO ([id number])[facility])[address] [place] [address] Hemoglobin (Bld) [Mass/Vol] 9.2 g/dL Low 11.7-16.0 [facility] Comment on above: Performed By: #### L [id number] ####Assembly Machine Tender: MARY SOTELO ([id number])[facility])[address] [place] [address] IMMATURE GRANS % 0.7 % Normal 0.0-2.0 [facility] Comment on above: Performed By: #### L [id number] ####Assembly Machine Tender: MARY SOTELO ([id number])[address] IMMATURE GRANS ABSOLUTE 0.0 10*3/uL Normal <0.1 [facility] Comment on above: Performed By: #### L [id number] ####Assembly Machine Tender: MARY SOTELO ([id number])[facility])[address] [place] [address] IPF 4 Normal [facility] Comment on above: Performed By: #### L [id number] ####Assembly Machine Tender: MARY SOTELO ([id number])[facility])[address] [place] [address] Lymphocytes (Bld) [#/Vol] 0.8 10*3/uL Low 1.0-4.3 [facility] Comment on above: Performed By: #### L [id number] ####Assembly Machine Tender: MARY SOTELO ([id number])[facility])[address] [place] [address] Lymphocytes/100 WBC (Bld) 17.9 % Normal 15.0-45.0 [facility] Comment on above: Performed By: #### L [id number] ####Assembly Machine Tender: MARY SOTELO ([id number])[facility])[address] [place] [address] MCH (RBC) [Entitic mass] 29.1 pg Normal 26.0-34.0 [facility] Comment on above: Performed By: #### L [id number] ####Assembly Machine Tender: MARY SOTELO ([id number])[facility])[address] [place] [address] MCHC 31.6 % Normal 30.5-36.0 [facility] Comment on above: Performed By: #### L [id number] ####Assembly Machine Tender: MARY SOTELO ([id number])[facility])[address] [place] [address] MCV (RBC) [Entitic vol] 92.1 fL Normal 77.0-99.0 [facility] Comment on above: Performed By: #### L [id number] ####Assembly Machine Tender: MARY SOTELO ([id number])[facility])[address] [place] [address] Monocytes (Bld) [#/Vol] 0.4 10*3/uL Normal 0.0-0.9 [facility] Comment on above: Performed By: #### L [id number] ####Assembly Machine Tender: MARY SOTELO ([id number])[facility])[address] [place] [address] Monocytes/100 WBC (Bld) 7.8 % Normal 5.0-13.0 [facility] Comment on above: Performed By: #### L [id number] ####Assembly Machine Tender: MARY SOTELO ([id number])[facility] ([facility])[address] [place] [address] NEUTROPHILS ABSOLUTE 3.2 10*3/uL Normal 1.8-7.5 [facility] Comment on above: Performed By: #### L [id number] ####Assembly Machine Tender: MARY SOTELO ([id number])[facility] ([facility])[address] [place] [address] Neutrophils/100 WBC (Bld) 70.5 % Normal 38.0-82.0 [facility] Comment on above: Performed By: #### L [id number] ####Assembly Machine Tender: MARY SOTELO ([id number])[facility] ([facility])[address] [place] [address] NRBC 0.0 /100 WBCs Normal 0.0-2.0 [facility] Comment on above: Performed By: #### L [id number] ####Assembly Machine Tender: MARY SOTELO ([id number])[facility] ([facility])[address] [place] [address] Platelet mean volume (Bld) [Entitic vol] 10.2 fL Normal 9.0-12.7 [facility] Comment on above: Performed By: #### L [id number] ####Assembly Machine Tender: MARY SOTELO ([id number])[facility] ([facility])[address] [place] [address] [place] Platelets (Bld) [#/Vol] 111 10*3/uL Low 140-440 [facility] Comment on above: Performed By: #### L [id number] ####Assembly Machine Tender: MARY SOTELO ([id number])[facility] ([facility])[address] [place] [address] RBC (Bld) [#/Vol] 3.16 10*6/uL Low 3.80-5.20 [facility] Comment on above: Performed By: #### L [id number] ####Assembly Machine Tender: MARY SOTELO ([id number])[facility] ([facility])[address] [place] [address] WBC (Bld) [#/Vol] 4.5 10*3/uL Normal 3.6-10.7 [facility] Comment on above: Performed By: #### L [id number] ####Assembly Machine Tender: MARY SOTELO ([id number])[facility] [place] [address] Calcium.ionized [Moles/Vol]O rdered By: Elliott Macedo on 08-18-2024 Calcium.ionized (Bld) [Moles/Vol] 4.5 mg/dL 4.30 - 5.20 mg/dL [facility] Interpretation and review of laboratory results Abnormal [facility] PH, IONIZED CALCIUM 7.26 Low 7.31 - 7.46 [facility] IDNon 08-18-2024 IDN Normal [facility] Laboratory - Chemistry and C hemistry - challengeon 08-18-2024 Glucose [Mass/Vol] 297 mg/dL High 70 - 100 mg/dL [facility] Glucose [Mass/Vol] 325 mg/dL High 70 - 100 mg/dL [facility] Glucose [Mass/Vol] 181 mg/dL High 70 - 100 mg/dL [facility] Glucose [Mass/Vol] 187 mg/dL High 70 - 100 mg/dL [facility] Magnesium [Mass/Vol] 2 mg/dL 1.6 - 2 .3 mg/dL [facility] MAGNESIUMon 08-18-2024 Magnesium [Mass/Vol] 2.0 mg/dL Normal 1.6-2.3 [facility] Comment on above: Performed By: #### L AB113, [id number], LAB15 ####Assembly Machine Tender: MARY SOTELO ([id number])[facility] [place] [address] No Panel Informationon 08-18 Interpretation and review of laboratory results Abnormal [facility] Interpretation and review of laboratory results Abnormal [facility] Interpretation and review of laboratory results Abnormal [facility] Interpretation and review of laboratory results Abnormal [facility] Interpretation and review of laboratory results Normal [facility] Nursing Noteon 08-18-2024 Nursing Note Normal [facility] PHOSPHORUSon 08-18-2024 Phosphate [Mass/Vol] 3.4 mg/dL Normal 2.5-4.5 [facility] Comment on above: Performed By: #### L AB113, [id number], LAB15 ####Assembly Machine Tender: MARY SOTELO ([id number])[facility] ([facility])[address] [place] [address] [place] Phosphate [Moles/Vol]on 08-03 Phosphate [Mass/Vol] 3.4 mg/dL 2.5 - 4 .5 mg/dL [facility] Progress Noteon 08-18-2024 Progress Note Normal [facility] Progress [facility] Normal [facility] Progress Note Normal [facility] BASIC METABOLIC PANELon 08-03 Anion gap [Moles/Vol] 5 mmol/L Normal 3-13 [facility] Comment on above: Performed By: #### L AB103, [id number], LAB15 ####Assembly Machine Tender: MARY SOTELO ([id number])[facility] ([facility])[address] [place] [address] [place] Calcium [Mass/Vol] 7.0 mg/dL Low 8.4-10.4 [facility] Comment on above: Performed By: #### L AB103, [id number], LAB15 ####Assembly Machine Tender: MARY SOTELO ([id number])[facility] ([facility])[address] [place] [address] [place] Chloride [Moles/Vol] 100 mmol/L Normal 98-107 [facility] Comment on above: Performed By: #### L AB103, [id number], LAB15 ####Assembly Machine Tender: MARY SOTELO ([id number])[facility] ([facility])[address] [place] [address] [place] CO2 [Moles/Vol] 28 mmol/L Normal 22-30 [facility] Comment on above: Performed By: #### L AB103, [id number], LAB15 ####Assembly Machine Tender: MARY SOTELO ([id number])[facility] ([facility])[address] [place] [address] Creatinine [Mass/Vol] 2.31 mg/dL High 0.52-1.04 [facility] Comment on above: Performed By: #### L AB103, [id number], LAB15 ####Assembly Machine Tender: MRAY SOTELO ([id number])[facility] ([facility])[address] [place] [address] GLOMERULAR FILTRATION RATE ML/MIN/1.73 SQ M.PREDICTED 23.1 mL/min/1.73m*2 Low >60.0 [facility] Comment on above: Result Comment: Calc ulation based on the Chronic Kidney Disease Epidemiology Collaboration (CKD-EPI) equation refit without adjustment for race Performed By: #### L AB103, [id number], LAB15 ####Assembly Machine Tender: MARY SOTELO ([id number])[facility] ([facility])[address] [place] [address] Glucose [Mass/Vol] 152 mg/dL High 70-100 [facility] Comment on above: Performed By: #### L AB103, [id number], LAB15 ####Assembly Machine Tender: MARY SOTELO ([id number])[facility])[address] [place] [address] Potassium [Moles/Vol] 3.6 mmol/L Normal 3.5-5.1 [facility] Comment on above: Performed By: #### L AB103, [id number], LAB15 ####Assembly Machine Tender: MARY SOTELO ([id number])[facility] ([facility])[address] [place] [address] [place] Sodium [Moles/Vol] 132 mmol/L Low 135-145 [facility] Comment on above: Performed By: #### L AB103, [id number], LAB15 ####Assembly Machine Tender: MARY SOTELO ([id number])[facility])[address] [place] [address] [place] Urea nitrogen [Mass/Vol] 21 mg/dL High 7-17 [facility] Comment on above: Performed By: #### L AB103, ISH060, LAB15 ####Assembly Machine Tender: MARY SOTELO ([id number])[facility])[address] [place] [address] Bacteria identified Cx Nom ( Bld)on 08-17-2024 Interpretation and review of laboratory results Normal [facility] Basic metabolic 1998 panelon 08-17-2024 Anion gap [Moles/Vol] 5 mmol/L 3 - 13 mmol/L [facility] Calcium [Mass/Vol] 7 mg/dL Low 8.4 - 10. 4 mg/dL [facility] Chloride [Moles/Vol] 100 mmol/L 98 - 10 7 mmol/L [facility] CO2 [Moles/Vol] 28 mmol/L 22 - 30 mmol/L [facility] Creatinine [Mass/Vol] 2.31 mg/dL High 0.52 - 1.04 mg/dL [facility] GFR/1.73 sq M.predicted (S/P/Bld) [Vol rate/Area] 23.1 mL/min Low - PINF [facility] Glucose [Mass/Vol] 152 mg/dL High 70 - 100 mg/dL [facility] Interpretation and review of laboratory results Abnormal [facility] Potassium [Moles/Vol] 3.6 mmol/L 3.5 - 5.1 mmol/L [facility] Sodium [Moles/Vol] 132 mmol/L Low 135 - 145 mmol/L [facility] Urea nitrogen [Mass/Vol] 21 mg/dL High 7 - 17 mg/dL [facility] CALCIUM, IONIZEDon 4 CALCIUM IONIZED 3.80 mg/dL Low 4.30-5.20 [facility] Comment on above: Performed By: #### L [id number] ####Assembly Machine Tender: MARY SOTELO ([id number])[facility] ([facility])[address] [place] [address] PH, IONIZED CALCIUM 7.39 Normal 7.31-7.46 [facility] Comment on above: Performed By: #### L AB54 ####Assembly Machine Tender: MARY SOTELO ([id number])[facility])[address] [place] [address] CARECOORDon 08-17-2024 [place] Normal [facility] CBC W Auto Differential pane l (Bld)on 08-17-2024 Basophils (Bld) [#/Vol] 0 10*3/uL 0.0 - 0.2 10*3/uL [facility] Basophils/100 WBC (Bld) 0.2 % 0.0 - 2.0 % [facility] Eosinophils (Bld) [#/Vol] 0.1 10*3/uL 0.0 - 0.5 10*3/uL [facility] Eosinophils/100 WBC (Bld) 2.6 % 0.0 - 6.0 % [facility] Erythrocyte distribution width (RBC) [Ratio] 15.8 % High 11.5 - 15.0 % [facility] Hematocrit (Bld) [Volume fraction] 28.7 % Low 35.0 - 47.0 % [facility] Hemoglobin (Bld) [Mass/Vol] 9.1 g/dL Low 11.7 - 16.0 g/dL [facility] Immature granulocytes (Bld) [#/Vol] 0 10*3/uL NINF - 0.1 10*3/uL [facility] Immature granulocytes/100 WBC (Bld) 0.4 % 0.0 - 2.0 % [facility] Interpretation and review of laboratory results Abnormal [facility] IPF 4 [facility] Lymphocytes (Bld) [#/Vol] 0.7 10*3/uL Low 1.0 - 4.3 10*3/uL [facility] Lymphocytes/100 WBC (Bld) 15.7 % 15.0 - 45.0 % [facility] MCH (RBC) [Entitic mass] 29.1 pg 26.0 - 34.0 pg [facility] MCHC (RBC) [Mass/Vol] 31.7 % 30.5 - 36.0 % [facility] MCV (RBC) [Entitic vol] 91.7 fL 77.0 - 99.0 fL [facility] Monocytes (Bld) [#/Vol] 0.3 10*3/uL 0.0 - 0.9 10*3/uL [facility] Monocytes/100 WBC (Bld) 6.8 % 5.0 - 13.0 % [facility] Neutrophils (Bld) [#/Vol] 3.4 10*3/uL 1.8 - 7.5 10*3/uL [facility] Neutrophils/100 WBC (Bld) 74.3 % 38.0 - 82.0 % [facility] Nucleated RBC/100 WBC (Bld) [Ratio] 0 % [facility] Platelet mean volume (Bld) [Entitic vol] 10.7 fL 9.0 - 12.7 fL [facility] Platelets (Bld) [#/Vol] 105 10*3/uL Low 140 - 440 10*3/uL [facility] RBC (Bld) [#/Vol] 3.13 10*6/uL Low 3.80 - 5.2 0 10*6/uL [facility] WBC (Bld) [#/Vol] 4.5 10*3/uL 3.6 - 10.7 10*3/uL [facility] CBC WITH AUTO DIFFERENTIALon 08-17-2024 Basophils (Bld) [#/Vol] 0.0 10*3/uL Normal 0.0-0.2 [facility] Comment on above: Performed By: #### L [id number] ####Assembly Machine Tender: MARY SOTELO ([id number])[address] Basophils/100 WBC (Bld) 0.2 % Normal 0.0-2.0 [facility] Comment on above: Performed By: #### L [id number] ####Assembly Machine Tender: MARY SOTELO ([id number])[facility])[address] [place] [address] [place] Eosinophils (Bld) [#/Vol] 0.1 10*3/uL Normal 0.0-0.5 [facility] Comment on above: Performed By: #### L [id number] ####Assembly Machine Tender: MARY [id number])[facility])[address] [place] [address] [place] Eosinophils/100 WBC (Bld) 2.6 % Normal 0.0-6.0 [facility] Comment on above: Performed By: #### L [id number] ####Assembly Machine Tender: MARY [id number])[facility])[address] [place] [address] Erythrocyte distribution width (RBC) [Ratio] 15.8 % High 11.5-15.0 [facility] Comment on above: Performed By: #### L [id number] ####Assembly Machine Tender: MARY SOTELO ([id number])[facility])[address] [place] [address] Hematocrit (Bld) [Volume fraction] 28.7 % Low 35.0-47.0 [facility] Comment on above: Performed By: #### L [id number] ####Assembly Machine Tender: MARY SOTELO ([id number])[facility])[address] [place] [address] Hemoglobin (Bld) [Mass/Vol] 9.1 g/dL Low 11.7-16.0 [facility] Comment on above: Performed By: #### L [id number] ####Assembly Machine Tender: MARY SOTELO ([id number])[facility])[address] [place] [address] IMMATURE GRANS % 0.4 % Normal 0.0-2.0 [facility] Comment on above: Performed By: #### L [id number] ####Assembly Machine Tender: MARY SOTELO ([id number])[facility])[address] [place] [address] IMMATURE GRANS ABSOLUTE 0.0 10*3/uL Normal <0.1 [facility] Comment on above: Performed By: #### L [id number] ####Assembly Machine Tender: MARY SOTELO ([id number])[facility])[address] [place] [address] [place] IPF 4 Normal [facility] Comment on above: Performed By: #### L [id number] ####Assembly Machine Tender: MARY SOTELO ([id number])[facility])[address] [place] [address] Lymphocytes (Bld) [#/Vol] 0.7 10*3/uL Low 1.0-4.3 [facility] Comment on above: Performed By: #### L [id number] ####Assembly Machine Tender: MARY SOTELO ([id number])[facility])[address] [place] [address] Lymphocytes/100 WBC (Bld) 15.7 % Normal 15.0-45.0 [facility] Comment on above: Performed By: #### L [id number] ####Assembly Machine Tender: MARY SOTELO ([id number])[facility] ([facility])[address] [place] [address] MCH (RBC) [Entitic mass] 29.1 pg Normal 26.0-34.0 [facility] Comment on above: Performed By: #### L [id number] ####Assembly Machine Tender: MARY SOTELO ([id number])[facility])[address] [place] [address] MCHC 31.7 % Normal 30.5-36.0 [facility] Comment on above: Performed By: #### L [id number] ####Assembly Machine Tender: MARY SOTELO ([id number])[facility] ([facility])[address] [place] [address] MCV (RBC) [Entitic vol] 91.7 fL Normal 77.0-99.0 [facility] Comment on above: Performed By: #### L [id number] ####Assembly Machine Tender: MARY SOTELO ([id number])[facility])[address] [place] [address] Monocytes (Bld) [#/Vol] 0.3 10*3/uL Normal 0.0-0.9 [facility] Comment on above: Performed By: #### L [id number] ####Assembly Machine Tender: MARY SOTELO ([id number])[facility])[address] [place] [address] Monocytes/100 WBC (Bld) 6.8 % Normal 5.0-13.0 [facility] Comment on above: Performed By: #### L [id number] ####Assembly Machine Tender: MARY SOTELO ([id number])[facility] ([facility])[address] [place] [address] NEUTROPHILS ABSOLUTE 3.4 10*3/uL Normal 1.8-7.5 [facility] Comment on above: Performed By: #### L [id number] ####Assembly Machine Tender: MARY SOTELO ([id number])[facility] ([facility])[address] [place] [address] Neutrophils/100 WBC (Bld) 74.3 % Normal 38.0-82.0 [facility] Comment on above: Performed By: #### L [id number] ####Assembly Machine Tender: MARY SOTELO ([id number])[facility] ([facility])[address] [place] [address] NRBC 0.0 /100 WBCs Normal 0.0-2.0 [facility] Comment on above: Performed By: #### L [id number] ####Assembly Machine Tender: MARY SOTELO ([id number])[facility] ([facility])[address] [place] [address] Platelet mean volume (Bld) [Entitic vol] 10.7 fL Normal 9.0-12.7 [facility] Comment on above: Performed By: #### L [id number] ####Assembly Machine Tender: MARY SOTELO ([id number])[facility] ([facility])[address] [place] [address] Platelets (Bld) [#/Vol] 105 10*3/uL Low 140-440 [facility] Comment on above: Performed By: #### L [id number] ####Assembly Machine Tender: MARY SOTELO ([id number])[facility] ([facility])[address] [place] [address] RBC (Bld) [#/Vol] 3.13 10*6/uL Low 3.80-5.20 [facility] Comment on above: Performed By: #### L [id number] ####Assembly Machine Tender: MARY SOTELO ([id number])[facility] ([facility])[address] [place] [address] [place] WBC (Bld) [#/Vol] 4.5 10*3/uL Normal 3.6-10.7 [facility] Comment on above: Performed By: #### L [id number] ####Assembly Machine Tender: MARY SOTELO ([id number])[facility] ([facility])[address] [place] [address] Calcium.ionized [Moles/Vol]o n 08-17-2024 Calcium.ionized (Bld) [Moles/Vol] 3.8 mg/dL Low 4.30 - 5.20 mg/dL [facility] Interpretation and review of laboratory results Abnormal [facility] PH, IONIZED CALCIUM 7.39 7.31 - 7.46 [facility] IDNon 08-17-2024 IDN Normal [facility] Laboratory - Chemistry and C hemistry - challengeon 08-17-2024 Glucose [Mass/Vol] 178 mg/dL High 70 - 100 mg/dL [facility] Glucose [Mass/Vol] 112 mg/dL High 70 - 100 mg/dL [facility] Glucose [Mass/Vol] 213 mg/dL High 70 - 100 mg/dL [facility] Glucose [Mass/Vol] 286 mg/dL High 70 - 100 mg/dL [facility] Magnesium [Mass/Vol] 2 mg/dL 1.6 - 2 .3 mg/dL [facility] Laboratory - Microbiology an d Antimicrobial susceptibilityon 08-17-2024 Bacteria identified Cx Nom (Bld) No growth at 5 days [facility] MAGNESIUMon 08-17-2024 Magnesium [Mass/Vol] 2.0 mg/dL Normal 1.6-2.3 [facility] Comment on above: Performed By: #### L AB103, [id number], LAB15 ####Assembly Machine Tender: MARY SOTELO ([id number])[facility] [place] [address] No Panel Informationon 08-17 Interpretation and review of laboratory results Abnormal [facility] Interpretation and review of laboratory results Abnormal [facility] Interpretation and review of laboratory results Abnormal [facility] Interpretation and review of laboratory results Abnormal [facility] Interpretation and review of laboratory results Normal [facility] PHOSPHORUSon 08-17-2024 Phosphate [Mass/Vol] 2.8 mg/dL Normal 2.5-4.5 [facility] Comment on above: Performed By: #### L AB103, [id number], LAB15 ####Assembly Machine Tender: MARY SOTELO ([id number])[facility] ([facility])[address] [place] [address] [place] Phosphate [Moles/Vol]on 08-03 Phosphate [Mass/Vol] 2.8 mg/dL 2.5 - 4 .5 mg/dL [facility] Progress Noteon 08-17-2024 Progress Note Normal [facility] Progress Note Normal [facility] Progress Note Normal [facility] Progress Note [facility] BASIC METABOLIC PANELon 08-03 Anion gap [Moles/Vol] 6 mmol/L Normal 3-13 [facility] Comment on above: Performed By: #### L AB103, [id number], LAB15 ####Assembly Machine Tender: MARY SOTELO ([id number])[facility] ([facility])[address] [place] [address] [place] Calcium [Mass/Vol] 7.2 mg/dL Low 8.4-10.4 [facility] Comment on above: Performed By: #### L AB103, [id number], LAB15 ####Assembly Machine Tender: MARY SOTELO ([id number])[facility] ([facility])[address] [place] [address] [place] Chloride [Moles/Vol] 98 mmol/L Normal 98-107 [facility] Comment on above: Performed By: #### L AB103, [id number], LAB15 ####Assembly Machine Tender: MARY SOTELO ([id number])[facility] ([facility])[address] [place] [address] [place] CO2 [Moles/Vol] 27 mmol/L Normal 22-30 [facility] Comment on above: Performed By: #### L AB103, [id number], LAB15 ####Assembly Machine Tender: MARY SOTELO ([id number])[facility] [place] [address] Creatinine [Mass/Vol] 3.90 mg/dL High 0.52-1.04 [facility] Comment on above: Performed By: #### L AB103, [id number], LAB15 ####Assembly Machine Tender: MARY SOTELO ([id number])[facility])[address] [place] [address] GLOMERULAR FILTRATION RATE ML/MIN/1.73 SQ M.PREDICTED 12.3 mL/min/1.73m*2 Low >60.0 [facility] Comment on above: Result Comment: Calc ulation based on the Chronic Kidney Disease Epidemiology Collaboration (CKD-EPI) equation refit without adjustment for race Performed By: #### L AB103, [id number], LAB15 ####Assembly Machine Tender: MARY SOTELO ([id number])[facility] ([facility])[address] [place] [address] Glucose [Mass/Vol] 362 mg/dL High 70-100 [facility] Comment on above: Performed By: #### L AB103, [id number], LAB15 ####Assembly Machine Tender: MARY SOTELO ([id number])[facility] ([facility])[address] [place] [address] Potassium [Moles/Vol] 4.1 mmol/L Normal 3.5-5.1 [facility] Comment on above: Performed By: #### L AB103, [id number], LAB15 ####Assembly Machine Tender: MARY SOTELO ([id number])[facility] ([facility])[address] [place] [address] Sodium [Moles/Vol] 131 mmol/L Low 135-145 [facility] Comment on above: Performed By: #### L AB103, [id number], LAB15 ####Assembly Machine Tender: MARY SOTELO ([id number])[facility])[address] [place] [address] [place] Urea nitrogen [Mass/Vol] 38 mg/dL High 7-17 [facility] Comment on above: Performed By: #### L AB103, [id number], LAB15 ####Assembly Machine Tender: MARY SOTELO ([id number])[facility] ([facility])[address] [place] [address] Bacteria identified Cx Nom ( U)Ordered By: Matilde Ronquillo on 08-16-2024 Interpretation and review of laboratory results Abnormal [facility] Basic metabolic 1998 panelon 08-16-2024 Anion gap [Moles/Vol] 6 mmol/L 3 - 13 mmol/L [facility] Calcium [Mass/Vol] 7.2 mg/dL Low 8.4 - 10. 4 mg/dL [facility] Chloride [Moles/Vol] 98 mmol/L 98 - 10 7 mmol/L [facility] CO2 [Moles/Vol] 27 mmol/L 22 - 30 mmol/L [facility] Creatinine [Mass/Vol] 3.9 mg/dL High 0.52 - 1.04 mg/dL [facility] GFR/1.73 sq M.predicted (S/P/Bld) [Vol rate/Area] 12.3 mL/min Low - PINF [facility] Glucose [Mass/Vol] 362 mg/dL High 70 - 100 mg/dL [facility] Interpretation and review of laboratory results Abnormal [facility] Potassium [Moles/Vol] 4.1 mmol/L 3.5 - 5.1 mmol/L [facility] Sodium [Moles/Vol] 131 mmol/L Low 135 - 145 mmol/L [facility] Urea nitrogen [Mass/Vol] 38 mg/dL High 7 - 17 mg/dL [facility] CALCIUM, IONIZEDon CALCIUM IONIZED 4.20 mg/dL Low 4.30-5.20 [facility] Comment on above: Performed By: #### L AB54 ####Assembly Machine Tender: MARY SOTELO ([id number])[facility] [place] [address] PH, IONIZED CALCIUM 7.16 Low 7.31-7.46 [facility] Comment on above: Performed By: #### L AB54 ####Assembly Machine Tender: MARY SOTELO ([id number])[facility] ([facility])[address] [place] [address] CARECOORDon 08-16-2024 [place] Normal [facility]S CBC W Auto Differential pane l (Bld)on 08-16-2024 Basophils (Bld) [#/Vol] 0 10*3/uL 0.0 - 0.2 10*3/uL [facility] Basophils/100 WBC (Bld) 0.2 % 0.0 - 2.0 % [facility] Eosinophils (Bld) [#/Vol] 0 10*3/uL 0.0 - 0.5 10*3/uL [facility] Eosinophils/100 WBC (Bld) 0.4 % 0.0 - 6.0 % [facility] Erythrocyte distribution width (RBC) [Ratio] 15.8 % High 11.5 - 15.0 % [facility] Hematocrit (Bld) [Volume fraction] 30 % Low 35.0 - 47.0 % [facility] Hemoglobin (Bld) [Mass/Vol] 9.7 g/dL Low 11.7 - 16.0 g/dL [facility] Immature granulocytes (Bld) [#/Vol] 0 10*3/uL NINF - 0.1 10*3/uL [facility] Immature granulocytes/100 WBC (Bld) 0.6 % 0.0 - 2.0 % [facility] Interpretation and review of laboratory results Abnormal [facility] Lymphocytes (Bld) [#/Vol] 0.5 10*3/uL Low 1.0 - 4.3 10*3/uL [facility] Lymphocytes/100 WBC (Bld) 10.1 % Low 15.0 - 45.0 % [facility] MCH (RBC) [Entitic mass] 29.6 pg 26.0 - 34.0 pg [facility] MCHC (RBC) [Mass/Vol] 32.3 % 30.5 - 36.0 % [facility] MCV (RBC) [Entitic vol] 91.5 fL 77.0 - 99.0 fL [facility] Monocytes (Bld) [#/Vol] 0.3 10*3/uL 0.0 - 0.9 10*3/uL [facility] Monocytes/100 WBC (Bld) 6.9 % 5.0 - 13.0 % [facility] Neutrophils (Bld) [#/Vol] 3.9 10*3/uL 1.8 - 7.5 10*3/uL [facility] Neutrophils/100 WBC (Bld) 81.8 % 38.0 - 82.0 % [facility] Nucleated RBC/100 WBC (Bld) [Ratio] 0 % [facility] Platelet mean volume (Bld) [Entitic vol] 10.2 fL 9.0 - 12.7 fL [facility] Platelets (Bld) [#/Vol] 104 10*3/uL Low 140 - 440 10*3/uL [facility] RBC (Bld) [#/Vol] 3.28 10*6/uL Low 3.80 - 5.2 0 10*6/uL [facility] WBC (Bld) [#/Vol] 4.8 10*3/uL 3.6 - 10.7 10*3/uL [facility] CBC WITH AUTO DIFFERENTIALon 08-16-2024 Basophils (Bld) [#/Vol] 0.0 10*3/uL Normal 0.0-0.2 [facility] Comment on above: Performed By: #### L [id number] ####Assembly Machine Tender: MARY SOTELO ([id number])[address] Basophils/100 WBC (Bld) 0.2 % Normal 0.0-2.0 [facility] Comment on above: Performed By: #### L [id number] ####Assembly Machine Tender: MARY SOTELO ([id number])[address] Eosinophils (Bld) [#/Vol] 0.0 10*3/uL Normal 0.0-0.5 [facility] Comment on above: Performed By: #### L [id number] ####Assembly Machine Tender: MARY SOTELO ([id number])[facility])[address] [place] [address] Eosinophils/100 WBC (Bld) 0.4 % Normal 0.0-6.0 [facility] Comment on above: Performed By: #### L [id number] ####Assembly Machine Tender: MARY SOTELO ([id number])[facility])[address] [place] [address] Erythrocyte distribution width (RBC) [Ratio] 15.8 % High 11.5-15.0 [facility] Comment on above: Performed By: #### L [id number] ####Assembly Machine Tender: MARY SOTELO ([id number])[facility])[address] [place] [address] Hematocrit (Bld) [Volume fraction] 30.0 % Low 35.0-47.0 [facility] Comment on above: Performed By: #### L [id number] ####Assembly Machine Tender: MARY SOTELO ([id number])[facility])[address] [place] [address] Hemoglobin (Bld) [Mass/Vol] 9.7 g/dL Low 11.7-16.0 [facility] Comment on above: Performed By: #### L [id number] ####Assembly Machine Tender: MARY SOTELO ([id number])[facility])[address] [place] [address] IMMATURE GRANS % 0.6 % Normal 0.0-2.0 [facility] Comment on above: Performed By: #### L [id number] ####Assembly Machine Tender: MARY SOTELO ([id number])[facility])[address] [place] [address] IMMATURE GRANS ABSOLUTE 0.0 10*3/uL Normal <0.1 [facility] Comment on above: Performed By: #### L [id number] ####Assembly Machine Tender: MARY SOTELO ([id number])[facility])[address] [place] [address] Lymphocytes (Bld) [#/Vol] 0.5 10*3/uL Low 1.0-4.3 [facility] Comment on above: Performed By: #### L [id number] ####Assembly Machine Tender: MARY SOTELO ([id number])[facility])[address] [place] [address] Lymphocytes/100 WBC (Bld) 10.1 % Low 15.0-45.0 [facility] Comment on above: Performed By: #### L [id number] ####Assembly Machine Tender: MARY SOTELO ([id number])[facility])[address] [place] [address] MCH (RBC) [Entitic mass] 29.6 pg Normal 26.0-34.0 [facility] Comment on above: Performed By: #### L [id number] ####Assembly Machine Tender: MARY SOTELO ([id number])[facility])[address] [place] [address] MCHC 32.3 % Normal 30.5-36.0 [facility] Comment on above: Performed By: #### L [id number] ####Assembly Machine Tender: MARY SOTELO ([id number])[facility])[address] [place] [address] MCV (RBC) [Entitic vol] 91.5 fL Normal 77.0-99.0 [facility] Comment on above: Performed By: #### L [id number] ####Assembly Machine Tender: MARY SOTELO ([id number])[facility])[address] [place] [address] Monocytes (Bld) [#/Vol] 0.3 10*3/uL Normal 0.0-0.9 [facility] Comment on above: Performed By: #### L [id number] ####Assembly Machine Tender: MARY SOTELO ([id number])[facility])[address] [place] [address] Monocytes/100 WBC (Bld) 6.9 % Normal 5.0-13.0 [facility] Comment on above: Performed By: #### L [id number] ####Assembly Machine Tender: MARY SOTELO ([id number])[facility])[address] [place] [address] NEUTROPHILS ABSOLUTE 3.9 10*3/uL Normal 1.8-7.5 [facility] Comment on above: Performed By: #### L [id number] ####Assembly Machine Tender: MARY SOTELO ([id number])[facility] [place] [address] Neutrophils/100 WBC (Bld) 81.8 % Normal 38.0-82.0 [facility] Comment on above: Performed By: #### L [id number] ####Assembly Machine Tender: MARY SOTELO ([id number])[facility] ([facility])[address] [place] [address] NRBC 0.0 /100 WBCs Normal 0.0-2.0 [facility] Comment on above: Performed By: #### L [id number] ####Assembly Machine Tender: MARY SOTELO ([id number])[facility] ([facility])[address] [place] [address] Platelet mean volume (Bld) [Entitic vol] 10.2 fL Normal 9.0-12.7 [facility] Comment on above: Performed By: #### L [id number] ####Assembly Machine Tender: MARY SOTELO ([id number])[facility] ([facility])[address] [place] [address] Platelets (Bld) [#/Vol] 104 10*3/uL Low 140-440 [facility] Comment on above: Performed By: #### L [id number] ####Assembly Machine Tender: MARY SOTELO ([id number])[facility] ([facility])[address] [place] [address] RBC (Bld) [#/Vol] 3.28 10*6/uL Low 3.80-5.20 [facility] Comment on above: Performed By: #### L [id number] ####Assembly Machine Tender: MARY SOTELO ([id number])[facility] ([facility])[address] [place] [address] [place] WBC (Bld) [#/Vol] 4.8 10*3/uL Normal 3.6-10.7 [facility] Comment on above: Performed By: #### L [id number] ####Assembly Machine Tender: MARY SOTELO ([id number])[facility] ([facility])[address] Calcium.ionized [Moles/Vol]o n 08-16-2024 Calcium.ionized (Bld) [Moles/Vol] 4.2 mg/dL Low 4.30 - 5.20 mg/dL [facility] Interpretation and review of laboratory results Abnormal [facility] PH, IONIZED CALCIUM 7.16 Low 7.31 - 7.46 [facility] IDNon 08-16-2024 IDN Normal [facility] Laboratory - Chemistry and C hemistry - challengeon 08-16-2024 Glucose [Mass/Vol] 174 mg/dL High 70 - 100 mg/dL [facility] Glucose [Mass/Vol] 163 mg/dL High 70 - 100 mg/dL [facility] Glucose [Mass/Vol] 350 mg/dL High 70 - 100 mg/dL [facility] Glucose [Mass/Vol] 405 mg/dL High 70 - 100 mg/dL [facility] Magnesium [Mass/Vol] 2.2 mg/dL 1.6 - 2 .3 mg/dL [facility] Laboratory - Microbiology an d Antimicrobial susceptibilityOrdered By: Matilde Ronquillo on 08-16-2024 Bacteria identified Cx Nom (U) >100,000 CFU/mL Abbi albicans Abnormal [facility] MAGNESIUMon 08-16-2024 Magnesium [Mass/Vol] 2.2 mg/dL Normal 1.6-2.3 [facility] Comment on above: Performed By: #### L [id number], [id number], LAB15 ####Assembly Machine Tender: MARY SOTELO ([id number])[facility] ([facility])[address] [place] [address] No Panel Informationon 08-16 Interpretation and review of laboratory results Abnormal [facility] Interpretation and review of laboratory results Abnormal [facility] Interpretation and review of laboratory results Abnormal [facility] Interpretation and review of laboratory results Abnormal [facility] Interpretation and review of laboratory results Normal [facility] Nursing Noteon 08-16-2024 Nursing Note Normal [facility] PHOSPHORUSon 08-16-2024 Phosphate [Mass/Vol] 4.5 mg/dL Normal 2.5-4.5 [facility] Comment on above: Performed By: #### Dora ABErika, [id number], LAB15 ####Assembly Machine Tender: MARY SOTELO ([id number])[facility] ([facility])[address] [place] [address] [place] Phosphate [Moles/Vol]on 08-03 Phosphate [Mass/Vol] 4.5 mg/dL 2.5 - 4 .5 mg/dL [facility] Progress Noteon 08-16-2024 Progress Note Normal [facility] Progress Note Normal [facility] Progress Note Normal [facility] Progress Note Normal [facility] BASIC METABOLIC PANELon 08-03 Anion gap [Moles/Vol] 8 mmol/L Normal 3-13 [facility] Comment on above: Performed By: #### Dora ABGabbie, [id number], LAB15 ####Assembly Machine Tender: MARY SOTELO ([id number])[facility] ([facility])[address] [place] [address] [place] Calcium [Mass/Vol] 7.1 mg/dL Low 8.4-10.4 [facility] Comment on above: Performed By: #### Dora QUINTANILLA, [id number], LAB15 ####Assembly Machine Tender: MARY SOTELO ([id number])[facility] ([facility])[address] [place] [address] [place] Chloride [Moles/Vol] 100 mmol/L Normal 98-107 [facility] Comment on above: Performed By: #### Dora QUINTANILLA, [id number], LAB15 ####Assembly Machine Tender: MARY SOTELO ([id number])[facility] ([facility])[address] [place] [address] [place] CO2 [Moles/Vol] 22 mmol/L Normal 22-30 [facility] Comment on above: Performed By: #### Dora ABGabbie, [id number], LAB15 ####Assembly Machine Tender: MARY SOTELO ([id number])[facility] ([facility])[address] [place] [address] [place] Creatinine [Mass/Vol] 2.97 mg/dL High 0.52-1.04 [facility] Comment on above: Performed By: #### L AB113, [id number], LAB15 ####Assembly Machine Tender: MARY SOTELO ([id number])[facility])[address] [place] [address] GLOMERULAR FILTRATION RATE ML/MIN/1.73 SQ M.PREDICTED 17.1 mL/min/1.73m*2 Low >60.0 [facility] Comment on above: Result Comment: Calc ulation based on the Chronic Kidney Disease Epidemiology Collaboration (CKD-EPI) equation refit without adjustment for race Performed By: #### L AB113, [id number], LAB15 ####Assembly Machine Tender: MARY SOTELO ([id number])[facility])[address] [place] [address] Glucose [Mass/Vol] 270 mg/dL High 70-100 [facility] Comment on above: Performed By: #### Dora ABGabbie, [id number], LAB15 ####Assembly Machine Tender: MARY SOTELO ([id number])[facility])[address] [place] [address] Potassium [Moles/Vol] 3.9 mmol/L Normal 3.5-5.1 [facility] Comment on above: Performed By: #### L AB113, [id number], LAB15 ####Assembly Machine Tender: MARY SOTELO ([id number])[facility])[address] [place] [address] Sodium [Moles/Vol] 130 mmol/L Low 135-145 [facility] Comment on above: Performed By: #### L AB113, [id number], LAB15 ####Assembly Machine Tender: MARY SOTELO ([id number])[facility])[address] [place] [address] Urea nitrogen [Mass/Vol] 27 mg/dL High 7-17 [facility] Comment on above: Performed By: #### L AB113, [id number], LAB15 ####Assembly Machine Tender: MARY SOTELO ([id number])[facility])[address] [place] [address] [place] Bacteria identified Cx Nom ( Bld)Ordered By: Kaitlyn Corona on 08-15-2024 Interpretation and review of laboratory results Abnormal [facility] Basic metabolic 1998 panelOr dered By: Deirdre Maciel on 08-15-2024 Anion gap [Moles/Vol] 8 mmol/L 3 - 13 mmol/L [facility] Calcium [Mass/Vol] 7.1 mg/dL Low 8.4 - 10. 4 mg/dL [facility] Chloride [Moles/Vol] 100 mmol/L 98 - 10 7 mmol/L [facility] CO2 [Moles/Vol] 22 mmol/L 22 - 30 mmol/L [facility] Creatinine [Mass/Vol] 2.97 mg/dL High 0.52 - 1.04 mg/dL [facility] GFR/1.73 sq M.predicted (S/P/Bld) [Vol rate/Area] 17.1 mL/min Low - PINF [facility] Glucose [Mass/Vol] 270 mg/dL High 70 - 100 mg/dL [facility] Interpretation and review of laboratory results Abnormal [facility] Potassium [Moles/Vol] 3.9 mmol/L 3.5 - 5.1 mmol/L [facility] Sodium [Moles/Vol] 130 mmol/L Low 135 - 145 mmol/L [facility] Urea nitrogen [Mass/Vol] 27 mg/dL High 7 - 17 mg/dL [facility] CALCIUM, IONIZEDon 4 CALCIUM IONIZED 3.90 mg/dL Low 4.30-5.20 [facility] Comment on above: Performed By: #### L [id number] ####Assembly Machine Tender: MARY SOTELO ([id number])[facility] ([facility])[address] [place] [address] PH, IONIZED CALCIUM 7.29 Low 7.31-7.46 [facility] Comment on above: Performed By: #### L AB54 ####Assembly Machine Tender: MARY SOTELO ([id number])[facility] ([facility])[address] [place] [address] CBC W Auto Differential pane l (Bld)Ordered By: Olamide Orozco on 08-15-2024 Basophils (Bld) [#/Vol] 0 10*3/uL 0.0 - 0.2 10*3/uL [facility] Basophils/100 WBC (Bld) 0.2 % 0.0 - 2.0 % [facility] Eosinophils (Bld) [#/Vol] 0 10*3/uL 0.0 - 0.5 10*3/uL [facility] Eosinophils/100 WBC (Bld) 0.6 % 0.0 - 6.0 % [facility] Erythrocyte distribution width (RBC) [Ratio] 15.9 % High 11.5 - 15.0 % [facility] Hematocrit (Bld) [Volume fraction] 30.3 % Low 35.0 - 47.0 % [facility] Hemoglobin (Bld) [Mass/Vol] 9.5 g/dL Low 11.7 - 16.0 g/dL [facility] [employer] Immature granulocytes (Bld) [#/Vol] 0 10*3/uL NINF - 0.1 10*3/uL [facility] Immature granulocytes/100 WBC (Bld) 0.8 % 0.0 - 2.0 % [facility] Interpretation and review of laboratory results Abnormal [facility] IPF 4 [facility] Lymphocytes (Bld) [#/Vol] 0.6 10*3/uL Low 1.0 - 4.3 10*3/uL [facility] Lymphocytes/100 WBC (Bld) 12.7 % Low 15.0 - 45.0 % [facility] MCH (RBC) [Entitic mass] 29 pg 26.0 - 34.0 pg [facility] MCHC (RBC) [Mass/Vol] 31.4 % 30.5 - 36.0 % [facility] MCV (RBC) [Entitic vol] 92.4 fL 77.0 - 99.0 fL [facility] Monocytes (Bld) [#/Vol] 0.4 10*3/uL 0.0 - 0.9 10*3/uL [facility] Monocytes/100 WBC (Bld) 7.3 % 5.0 - 13.0 % [facility] Neutrophils (Bld) [#/Vol] 3.9 10*3/uL 1.8 - 7.5 10*3/uL [facility] Neutrophils/100 WBC (Bld) 78.4 % 38.0 - 82.0 % [facility] [employer] Nucleated RBC/100 WBC (Bld) [Ratio] 0 % [facility] Platelet mean volume (Bld) [Entitic vol] 10.1 fL 9.0 - 12.7 fL [facility] Platelets (Bld) [#/Vol] 90 10*3/uL Low 140 - 440 10*3/uL [facility] RBC (Bld) [#/Vol] 3.28 10*6/uL Low 3.80 - 5.2 0 10*6/uL [facility] WBC (Bld) [#/Vol] 5 10*3/uL 3.6 - 10.7 10*3/uL [facility] CBC WITH AUTO DIFFERENTIALon 08-15-2024 Basophils (Bld) [#/Vol] 0.0 10*3/uL Normal 0.0-0.2 [facility] Comment on above: Performed By: #### L [id number] ####Assembly Machine Tender: MARY SOTELO ([id number])[address] Basophils/100 WBC (Bld) 0.2 % Normal 0.0-2.0 [facility] Comment on above: Performed By: #### L [id number] ####Assembly Machine Tender: MARY SOTELO ([id number])[address] Eosinophils (Bld) [#/Vol] 0.0 10*3/uL Normal 0.0-0.5 [facility] Comment on above: Performed By: #### L [id number] ####Assembly Machine Tender: MARY SOTELO ([id number])[facility])[address] [place] [address] Eosinophils/100 WBC (Bld) 0.6 % Normal 0.0-6.0 [facility] Comment on above: Performed By: #### L [id number] ####Assembly Machine Tender: MARY SOTELO ([id number])[address] Erythrocyte distribution width (RBC) [Ratio] 15.9 % High 11.5-15.0 [facility] Comment on above: Performed By: #### L [id number] ####Assembly Machine Tender: MARY SOTELO ([id number])[facility])[address] [place] [address] Hematocrit (Bld) [Volume fraction] 30.3 % Low 35.0-47.0 [facility] Comment on above: Performed By: #### L [id number] ####Assembly Machine Tender: MARY SOTELO ([id number])[facility])[address] [place] [address] Hemoglobin (Bld) [Mass/Vol] 9.5 g/dL Low 11.7-16.0 [facility] Comment on above: Performed By: #### L [id number] ####Assembly Machine Tender: MARY SOTELO ([id number])[facility])[address] [place] [address] IMMATURE GRANS % 0.8 % Normal 0.0-2.0 [facility] Comment on above: Performed By: #### L [id number] ####Assembly Machine Tender: MARY SOTELO ([id number])[facility])[address] [place] [address] IMMATURE GRANS ABSOLUTE 0.0 10*3/uL Normal <0.1 [facility] Comment on above: Performed By: #### L [id number] ####Assembly Machine Tender: MARY SOTELO ([id number])[facility])[address] [place] [address] IPF 4 Normal [facility] Comment on above: Performed By: #### L [id number] ####Assembly Machine Tender: MARY SOTELO ([id number])[facility])[address] [place] [address] Lymphocytes (Bld) [#/Vol] 0.6 10*3/uL Low 1.0-4.3 [facility] Comment on above: Performed By: #### L [id number] ####Assembly Machine Tender: MARY SOTELO ([id number])[facility])[address] [place] [address] [place] Lymphocytes/100 WBC (Bld) 12.7 % Low 15.0-45.0 [facility] Comment on above: Performed By: #### L [id number] ####Assembly Machine Tender: MARY SOTELO ([id number])[facility] ([facility])[address] [place] [address] MCH (RBC) [Entitic mass] 29.0 pg Normal 26.0-34.0 [facility] Comment on above: Performed By: #### L [id number] ####Assembly Machine Tender: MARY SOTELO ([id number])[facility] ([facility])[address] [place] [address] MCHC 31.4 % Normal 30.5-36.0 [facility] Comment on above: Performed By: #### L [id number] ####Assembly Machine Tender: MARY SOTELO ([id number])[facility])[address] [place] [address] MCV (RBC) [Entitic vol] 92.4 fL Normal 77.0-99.0 [facility] Comment on above: Performed By: #### L [id number] ####Assembly Machine Tender: MARY SOTELO ([id number])[facility] ([facility])[address] [place] [address] Monocytes (Bld) [#/Vol] 0.4 10*3/uL Normal 0.0-0.9 [facility] Comment on above: Performed By: #### L [id number] ####Assembly Machine Tender: MARY SOTELO ([id number])[facility] ([facility])[address] [place] [address] Monocytes/100 WBC (Bld) 7.3 % Normal 5.0-13.0 [facility] Comment on above: Performed By: #### L [id number] ####Assembly Machine Tender: MARY SOTELO ([id number])[facility])[address] [place] [address] NEUTROPHILS ABSOLUTE 3.9 10*3/uL Normal 1.8-7.5 [facility] Comment on above: Performed By: #### L [id number] ####Assembly Machine Tender: MARY SOTELO ([id number])[facility] ([facility])[address] [place] [address] Neutrophils/100 WBC (Bld) 78.4 % Normal 38.0-82.0 [facility] Comment on above: Performed By: #### L [id number] ####Assembly Machine Tender: MARY SOTELO ([id number])[facility] ([facility])[address] [place] [address] NRBC 0.0 /100 WBCs Normal 0.0-2.0 [facility] Comment on above: Performed By: #### L [id number] ####Assembly Machine Tender: MARY SOTELO ([id number])[facility])[address] [place] [address] Platelet mean volume (Bld) [Entitic vol] 10.1 fL Normal 9.0-12.7 [facility] Comment on above: Performed By: #### L [id number] ####Assembly Machine Tender: MARY SOTELO ([id number])[facility] ([facility])[address] [place] [address] Platelets (Bld) [#/Vol] 90 10*3/uL Low 140-440 [facility] Comment on above: Performed By: #### L [id number] ####Assembly Machine Tender: MARY SOTELO ([id number])[facility] ([facility])[address] [place] [address] RBC (Bld) [#/Vol] 3.28 10*6/uL Low 3.80-5.20 [facility] Comment on above: Performed By: #### L [id number] ####Assembly Machine Tender: MARY SOTELO ([id number])[facility])[address] [place] [address] WBC (Bld) [#/Vol] 5.0 10*3/uL Normal 3.6-10.7 [facility] Comment on above: Performed By: #### L [id number] ####Assembly Machine Tender: MARY [id number])[facility] ([facility])[address] [place] [address] Calcium.ionized [Moles/Vol]O rdered By: Nicole Lakhani on 08-15-2024 Calcium.ionized (Bld) [Moles/Vol] 3.9 mg/dL Low 4.30 - 5.20 mg/dL [facility] Interpretation and review of laboratory results Abnormal [facility] PH, IONIZED CALCIUM 7.29 Low 7.31 - 7.46 [facility] IDNon 08-15-2024 IDN Normal [facility] - Chemistry and C hemistry - challengeon 08-15-2024 Glucose [Mass/Vol] 344 mg/dL High 70 - 100 mg/dL [facility] Glucose [Mass/Vol] 368 mg/dL High 70 - 100 mg/dL [facility] Glucose [Mass/Vol] 340 mg/dL High 70 - 100 mg/dL [facility] Glucose [Mass/Vol] 302 mg/dL High 70 - 100 mg/dL [facility] Magnesium [Mass/Vol] 2.1 mg/dL 1.6 - 2 .3 mg/dL [facility] - Microbiology an d Antimicrobial susceptibilityOrdered By: Kaitlyn Corona on 08-15-2024 Bacteria identified Cx Nom (Bld) Staphylococcus epidermidis Critically abnormal [facility] - Miscellaneous t estson 08-15-2024 Service comment (Unsp spec) [Interp] 0.052 [facility] - Serology - non- microon 08-15-2024 Heparin induced platelet Ab Ql (S) Negative Negative [facility] MAGNESIUMon 08-15-2024 Magnesium [Mass/Vol] 2.1 mg/dL Normal 1.6-2.3 [facility] Comment on above: Performed By: #### L [id number], LAB15 ####Assembly Machine Tender: MARY SOTELO ([id number])[facility] ([facility])[address] [place] [address] No Panel Informationon 08-15 Interpretation and review of laboratory results Abnormal [facility] Interpretation and review of laboratory results Abnormal [facility] Interpretation and review of laboratory results Abnormal [facility] Interpretation and review of laboratory results Abnormal [facility] Interpretation and review of laboratory results Normal [facility] PHOSPHORUSon 08-15-2024 Phosphate [Mass/Vol] 4.5 mg/dL Normal 2.5-4.5 [facility] Comment on above: Performed By: #### L AB113, [id number], LAB15 ####Assembly Machine Tender: MARY SOTELO ([id number])[facility] [place] [address] [place] Phosphate [Moles/Vol]on 08-03 Phosphate [Mass/Vol] 4.5 mg/dL 2.5 - 4 .5 mg/dL [facility] Progress Noteon 08-15-2024 Progress Note Normal [facility] Progress Note Normal [facility] BASIC METABOLIC PANELon 08-03 Anion gap [Moles/Vol] 10 mmol/L Normal 01-13 [facility] Comment on above: Performed By: #### L AB113, [id number], LAB15 ####Assembly Machine Tender: MARY SOTELO ([id number])[facility] [place] [address] [place] Calcium [Mass/Vol] 6.8 mg/dL Low 8.4-10.4 [facility] Comment on above: Performed By: #### L AB113, [id number], LAB15 ####Assembly Machine Tender: MARY SOTELO ([id number])[facility] [place] [address] [place] Chloride [Moles/Vol] 96 mmol/L Low 98-107 [facility] Comment on above: Performed By: #### L AB113, [id number], LAB15 ####Assembly Machine Tender: MARY SOTELO ([id number])[facility] [place] [address] [place] CO2 [Moles/Vol] 25 mmol/L Normal 22-30 [facility] Comment on above: Performed By: #### L AB113, [id number], LAB15 ####Assembly Machine Tender: MARY SOTELO ([id number])[facility] [place] [address] Creatinine [Mass/Vol] 1.91 mg/dL High 0.52-1.04 [facility] Comment on above: Performed By: #### L AB113, [id number], LAB15 ####Assembly Machine Tender: MARY SOTELO ([id number])[facility])[address] [place] [address] [place] GLOMERULAR FILTRATION RATE ML/MIN/1.73 SQ M.PREDICTED 29.0 mL/min/1.73m*2 Low >60.0 [facility] Comment on above: Result Comment: Calc ulation based on the Chronic Kidney Disease Epidemiology Collaboration (CKD-EPI) equation refit without adjustment for race Performed By: #### L AB113, [id number], LAB15 ####Assembly Machine Tender: MARY SOTELO ([id number])[facility] ([facility])[address] [place] [address] Glucose [Mass/Vol] 361 mg/dL High 70-100 [facility] Comment on above: Performed By: #### L AB113, [id number], LAB15 ####Assembly Machine Tender: MARY SOTELO ([id number])[facility])[address] [place] [address] Potassium [Moles/Vol] 3.5 mmol/L Normal 3.5-5.1 [facility] Comment on above: Performed By: #### L AB113, [id number], LAB15 ####Assembly Machine Tender: MARY SOTELO ([id number])[facility] ([facility])[address] [place] [address] [place] Sodium [Moles/Vol] 130 mmol/L Low 135-145 [facility] Comment on above: Performed By: #### L AB113, [id number], LAB15 ####Assembly Machine Tender: MARY SOTELO ([id number])[facility])[address] [place] [address] [place] Urea nitrogen [Mass/Vol] 18 mg/dL High 7-17 [facility] Comment on above: Performed By: #### L AB113, [id number], LAB15 ####Assembly Machine Tender: MARY SOTELO ([id number])[facility] ([facility])[address] [place] [address] BLOOD CULTUREon 08-14-2024 Bacteria identified Cx Nom (Bld) Normal [facility] Comment on above: Performed By: #### L [id number] ####Assembly Machine Tender: MARY SOTELO ([id number])[facility] ([facility])[address] [place] [address] Bacteria identified Cx Nom (Bld) Normal [facility] Comment on above: Performed By: #### L [id number] ####Assembly Machine Tender: MARY SOTELO ([id number])[facility] ([facility])[address] [place] [address] Basic metabolic 1998 panelon 08-14-2024 Anion gap [Moles/Vol] 10 mmol/L 3 - 13 mmol/L [facility] Calcium [Mass/Vol] 6.8 mg/dL Low 8.4 - 10. 4 mg/dL [facility] Chloride [Moles/Vol] 96 mmol/L Low 98 - 10 7 mmol/L [facility] CO2 [Moles/Vol] 25 mmol/L 22 - 30 mmol/L [facility] Creatinine [Mass/Vol] 1.91 mg/dL High 0.52 - 1.04 mg/dL [facility] GFR/1.73 sq M.predicted (S/P/Bld) [Vol rate/Area] 29 mL/min Low - PINF [facility] Glucose [Mass/Vol] 361 mg/dL High 70 - 100 mg/dL [facility] Interpretation and review of laboratory results Abnormal [facility] Potassium [Moles/Vol] 3.5 mmol/L 3.5 - 5.1 mmol/L [facility] Sodium [Moles/Vol] 130 mmol/L Low 135 - 145 mmol/L [facility] Urea nitrogen [Mass/Vol] 18 mg/dL High 7 - 17 mg/dL [facility] CBC W Auto Differential pane l (Bld)Ordered By: Wei Adamson on 08-14-2024 Basophils (Bld) [#/Vol] 0 10*3/uL 0.0 - 0.2 10*3/uL [facility] Basophils/100 WBC (Bld) 0.2 % 0.0 - 2.0 % [facility] Eosinophils (Bld) [#/Vol] 0 10*3/uL 0.0 - 0.5 10*3/uL [facility] Eosinophils/100 WBC (Bld) 0.2 % 0.0 - 6.0 % [facility] Erythrocyte distribution width (RBC) [Ratio] 16.4 % High 11.5 - 15.0 % [facility] Hematocrit (Bld) [Volume fraction] 28.7 % Low 35.0 - 47.0 % [facility] Hemoglobin (Bld) [Mass/Vol] 9.2 g/dL Low 11.7 - 16.0 g/dL [facility] Immature granulocytes (Bld) [#/Vol] 0 10*3/uL NINF - 0.1 10*3/uL [facility] Immature granulocytes/100 WBC (Bld) 0.6 % 0.0 - 2.0 % [facility] Interpretation and review of laboratory results Abnormal [facility] IPF 4 [facility] Lymphocytes (Bld) [#/Vol] 0.7 10*3/uL Low 1.0 - 4.3 10*3/uL [facility] Lymphocytes/100 WBC (Bld) 13.6 % Low 15.0 - 45.0 % [facility] MCH (RBC) [Entitic mass] 29.2 pg 26.0 - 34.0 pg [facility] MCHC (RBC) [Mass/Vol] 32.1 % 30.5 - 36.0 % [facility] MCV (RBC) [Entitic vol] 91.1 fL 77.0 - 99.0 fL [facility] Monocytes (Bld) [#/Vol] 0.4 10*3/uL 0.0 - 0.9 10*3/uL [facility] Monocytes/100 WBC (Bld) 8 % 5.0 - 13.0 % [facility] Neutrophils (Bld) [#/Vol] 4 10*3/uL 1.8 - 7.5 10*3/uL [facility] Neutrophils/100 WBC (Bld) 77.4 % 38.0 - 82.0 % [facility] Nucleated RBC/100 WBC (Bld) [Ratio] 0 % [facility] Platelet mean volume (Bld) [Entitic vol] 10.9 fL 9.0 - 12.7 fL [facility] Platelets (Bld) [#/Vol] 79 10*3/uL Low 140 - 440 10*3/uL [facility] RBC (Bld) [#/Vol] 3.15 10*6/uL Low 3.80 - 5.2 0 10*6/uL [facility] WBC (Bld) [#/Vol] 5.2 10*3/uL 3.6 - 10.7 10*3/uL [facility] CBC WITH AUTO DIFFERENTIALon 08-14-2024 Basophils (Bld) [#/Vol] 0.0 10*3/uL Normal 0.0-0.2 [facility] Comment on above: Performed By: #### L [id number] ####Assembly Machine Tender: MARY SOTELO ([id number])[facility])[address] [place] [address] Basophils/100 WBC (Bld) 0.2 % Normal 0.0-2.0 [facility] Comment on above: Performed By: #### L [id number] ####Assembly Machine Tender: MARY SOTELO ([id number])[facility])[address] [place] [address] Eosinophils (Bld) [#/Vol] 0.0 10*3/uL Normal 0.0-0.5 [facility] Comment on above: Performed By: #### L [id number] ####Assembly Machine Tender: MARY SOTELO ([id number])[facility])[address] [place] [address] Eosinophils/100 WBC (Bld) 0.2 % Normal 0.0-6.0 [facility] Comment on above: Performed By: #### L [id number] ####Assembly Machine Tender: MARY SOTELO ([id number])[facility])[address] [place] [address] Erythrocyte distribution width (RBC) [Ratio] 16.4 % High 11.5-15.0 [facility] Comment on above: Performed By: #### L [id number] ####Assembly Machine Tender: MARY SOTELO ([id number])[facility] ([facility])[address] [place] [address] Hematocrit (Bld) [Volume fraction] 28.7 % Low 35.0-47.0 [facility] Comment on above: Performed By: #### L [id number] ####Assembly Machine Tender: MARY SOTELO ([id number])[facility] ([facility])[address] [place] [address] Hemoglobin (Bld) [Mass/Vol] 9.2 g/dL Low 11.7-16.0 [facility] Comment on above: Performed By: #### L [id number] ####Assembly Machine Tender: MARY SOTELO ([id number])[facility] ([facility])[address] [place] [address] IMMATURE GRANS % 0.6 % Normal 0.0-2.0 [facility] Comment on above: Performed By: #### L [id number] ####Assembly Machine Tender: MARY SOTELO ([id number])[facility] ([facility])[address] [place] [address] IMMATURE GRANS ABSOLUTE 0.0 10*3/uL Normal <0.1 [facility] Comment on above: Performed By: #### L [id number] ####Assembly Machine Tender: MARY SOTELO ([id number])[facility] ([facility])[address] [place] [address] [place] IPF 4 Normal [facility] Comment on above: Performed By: #### L [id number] ####Assembly Machine Tender: MARY SOTELO ([id number])[facility] ([facility])[address] [place] [address] [place] Lymphocytes (Bld) [#/Vol] 0.7 10*3/uL Low 1.0-4.3 [facility] Comment on above: Performed By: #### L [id number] ####Assembly Machine Tender: MARY SOTELO ([id number])[facility] ([facility])[address] [place] [address] [place] Lymphocytes/100 WBC (Bld) 13.6 % Low 15.0-45.0 [facility] Comment on above: Performed By: #### L [id number] ####Assembly Machine Tender: MARY SOTELO ([id number])[facility])[address] [place] [address] MCH (RBC) [Entitic mass] 29.2 pg Normal 26.0-34.0 [facility] Comment on above: Performed By: #### L [id number] ####Assembly Machine Tender: MARY SOTELO ([id number])[facility] ([facility])[address] [place] [address] MCHC 32.1 % Normal 30.5-36.0 [facility] Comment on above: Performed By: #### L [id number] ####Assembly Machine Tender: MARY SOTELO ([id number])[facility])[address] [place] [address] MCV (RBC) [Entitic vol] 91.1 fL Normal 77.0-99.0 [facility] Comment on above: Performed By: #### L [id number] ####Assembly Machine Tender: MARY SOTELO ([id number])[facility] ([facility])[address] [place] [address] Monocytes (Bld) [#/Vol] 0.4 10*3/uL Normal 0.0-0.9 [facility] Comment on above: Performed By: #### L [id number] ####Assembly Machine Tender: MARY SOTELO ([id number])[facility])[address] [place] [address] Monocytes/100 WBC (Bld) 8.0 % Normal 5.0-13.0 [facility] Comment on above: Performed By: #### L [id number] ####Assembly Machine Tender: MARY SOTELO ([id number])[facility])[address] [place] [address] NEUTROPHILS ABSOLUTE 4.0 10*3/uL Normal 1.8-7.5 [facility] Comment on above: Performed By: #### L [id number] ####Assembly Machine Tender: MARY SOTELO ([id number])[facility] [place] [address] Neutrophils/100 WBC (Bld) 77.4 % Normal 38.0-82.0 [facility] Comment on above: Performed By: #### L [id number] ####Assembly Machine Tender: MARY SOTELO ([id number])[facility] ([facility])[address] [place] [address] NRBC 0.0 /100 WBCs Normal 0.0-2.0 [facility] Comment on above: Performed By: #### L [id number] ####Assembly Machine Tender: MARY SOTELO ([id number])[facility] ([facility])[address] [place] [address] Platelet mean volume (Bld) [Entitic vol] 10.9 fL Normal 9.0-12.7 [facility] Comment on above: Performed By: #### L [id number] ####Assembly Machine Tender: MARY SOTELO ([id number])[facility] ([facility])[address] [place] [address] Platelets (Bld) [#/Vol] 79 10*3/uL Low 140-440 [facility] Comment on above: Performed By: #### L [id number] ####Assembly Machine Tender: MARY SOTELO ([id number])[facility] ([facility])[address] [place] [address] RBC (Bld) [#/Vol] 3.15 10*6/uL Low 3.80-5.20 [facility] Comment on above: Performed By: #### L [id number] ####Assembly Machine Tender: MARY SOTELO ([id number])[facility] ([facility])[address] [place] [address] [place] WBC (Bld) [#/Vol] 5.2 10*3/uL Normal 3.6-10.7 [facility] Comment on above: Performed By: #### L [id number] ####Assembly Machine Tender: MARY SOTELO ([id number])[facility] ([facility])[address] [place] [address] [place] IDNon 08-14-2024 IDN Normal [facility] Laboratory - Chemistry and C hemistry - challengeon 08-14-2024 Glucose [Mass/Vol] 248 mg/dL High 70 - 100 mg/dL [facility] Glucose [Mass/Vol] 233 mg/dL High 70 - 100 mg/dL [facility] Glucose [Mass/Vol] 294 mg/dL High 70 - 100 mg/dL [facility] Glucose [Mass/Vol] 356 mg/dL High 70 - 100 mg/dL [facility] Magnesium [Mass/Vol] 2.1 mg/dL 1.6 - 2 .3 mg/dL [facility] MAGNESIUMon 08-14-2024 Magnesium [Mass/Vol] 2.1 mg/dL Normal 1.6-2.3 [facility] Comment on above: Performed By: #### L AB113, [id number], LAB15 ####Assembly Machine Tender: MARY SOTELO ([id number])[facility] ([facility])[address] [place] [address] No Panel Informationon 08-14 Interpretation and review of laboratory results Abnormal [facility] Interpretation and review of laboratory results Abnormal [facility] Interpretation and review of laboratory results Abnormal [facility] Interpretation and review of laboratory results Abnormal [facility] Interpretation and review of laboratory results Normal [facility] PHOSPHORUSon 08-14-2024 Phosphate [Mass/Vol] 2.9 mg/dL Normal 2.5-4.5 [facility] Comment on above: Performed By: #### L AB113, [id number], LAB15 ####Assembly Machine Tender: MARY SOTELO ([id number])[facility] ([facility])[address] [place] [address] Phosphate [Moles/Vol]on 08-03 Phosphate [Mass/Vol] 2.9 mg/dL 2.5 - 4 .5 mg/dL [facility] Progress Noteon 08-14-2024 Progress Note Normal [facility] Progress Note Normal [facility] Progress Note Normal [facility] Progress Note Normal [facility] BASIC METABOLIC PANELon 10-1 Anion gap [Moles/Vol] 11 mmol/L Normal 3-13 [facility] Comment on above: Performed By: #### L AB15, [id number], [id number] ####Assembly Machine Tender: MARY SOTELO ([id number])[facility] ([facility])[address] [place] [address] Calcium [Mass/Vol] 7.1 mg/dL Low 8.4-10.4 [facility] Comment on above: Performed By: #### L AB15, [id number], [id number] ####Assembly Machine Tender: MARY SOTELO ([id number])[facility] ([facility])[address] [place] [address] Chloride [Moles/Vol] 103 mmol/L Normal 98-107 [facility] Comment on above: Performed By: #### L AB15, [id number], [id number] ####Assembly Machine Tender: MARY SOTELO ([id number])[facility] ([facility])[address] [place] [address] CO2 [Moles/Vol] 19 mmol/L Low 22-30 [facility] Comment on above: Performed By: #### L AB15, [id number], [id number] ####Assembly Machine Tender: MARY STOELO ([id number])[facility] ([facility])[address] [place] [address] Creatinine [Mass/Vol] 2.43 mg/dL High 0.52-1.04 [facility] Comment on above: Performed By: #### L AB15, [id number], [id number] ####Assembly Machine Tender: MARY SOTELO ([id number])[facility] ([facility])[address] [place] [address] [place] GLOMERULAR FILTRATION RATE ML/MIN/1.73 SQ M.PREDICTED 21.7 mL/min/1.73m*2 Low >60.0 [facility] Comment on above: Result Comment: Calc ulation based on the Chronic Kidney Disease Epidemiology Collaboration (CKD-EPI) equation refit without adjustment for race Performed By: #### L AB15, [id number], [id number] ####Assembly Machine Tender: MARY SOTELO ([id number])[facility])[address] [place] [address] Glucose [Mass/Vol] 211 mg/dL High 70-100 [facility] Comment on above: Performed By: #### L AB15, [id number], [id number] ####Assembly Machine Tender: MARY SOTELO ([id number])[facility])[address] [place] [address] Potassium [Moles/Vol] 3.7 mmol/L Normal 3.5-5.1 [facility] Comment on above: Performed By: #### L AB15, [id number], [id number] ####Assembly Machine Tender: MARY SOTELO ([id number])[facility])[address] [place] [address] Sodium [Moles/Vol] 134 mmol/L Low 135-145 [facility] Comment on above: Performed By: #### L AB15, [id number], [id number] ####Assembly Machine Tender: MARY SOTELO ([id number])[facility] ([facility])[address] [place] [address] Urea nitrogen [Mass/Vol] 18 mg/dL High 7-17 [facility] Comment on above: Performed By: #### L AB15, [id number], [id number] ####Assembly Machine Tender: MARY SOTELO ([id number])[facility] ([facility])[address] [place] [address] BETA HYDROXYBUTYRATEon 08-13 BETA HYDROXYBUTYRATE 33.80 mg/dL High 0.20-2.81 [facility] Comment on above: Performed By: #### L AB89, [id number], [id number], [id number] ####Assembly Machine Tender: MARY SOTELO ([id number])[facility])[address] [place] [address] BLOOD GAS ARTERIALon 024 Base excess Calc (Bld) [Moles/Vol] -3.2000 mmol/L Low -3.0-3.0 [facility] Comment on above: Performed By: #### L AB76 ####Assembly Machine Tender: MARY SOTELO ([id number])[facility] ([facility])[address] [place] [address] CO2 [Moles/Vol] 24.8 mmol/L Normal 23.0-27.0 [facility] Comment on above: Performed By: #### L [id number] ####Assembly Machine Tender: MARY SOTELO ([id number])[facility] ([facility])[address] [place] [address] HCO3 (Bld) [Moles/Vol] 23.3 mmol/L Normal 21.0-25.0 [facility] Comment on above: Performed By: #### L AB76 ####Assembly Machine Tender: MARY SOTELO ([id number])[facility] ([facility])[address] [place] [address] Hemoglobin (Bld) [Mass/Vol] 8.3 g/dL Normal Screen only [facility] Comment on above: Performed By: #### L AB76 ####Assembly Machine Tender: MARY SOTELO ([id number])[facility])[address] [place] [address] OXYGEN SATURATION (%) IN ARTERIAL BLOOD 95.8 % Normal 95.0-100.0 [facility] Comment on above: Performed By: #### L AB76 ####Assembly Machine Tender: MARY SOTELO ([id number])[facility] ([facility])[address] [place] [address] PCO2 ARTERIAL 49.4 mm Hg High >35.0-<45.0 [facility] Comment on above: Performed By: #### L [id number] ####Assembly Machine Tender: MARY SOTELO ([id number])[facility])[address] [place] [address] PH ARTERIAL 7.291 Low 7.350-7.450 [facility] Comment on above: Performed By: #### L [id number] ####Assembly Machine Tender: MARY SOTELO ([id number])[facility] [place] [address] PO2 ARTERIAL 84.7 mm Hg Normal 80.0-100.0 [facility] Comment on above: Performed By: #### L [id number] ####Assembly Machine Tender: MARY SOTELO ([id number])[facility] ([facility])[address] [place] [address] SOURCE OF OXYGEN 30% Oxygen Normal [facility] Comment on above: Performed By: #### L [id number] ####Assembly Machine Tender: MARY SOTELO ([id number])[facility] ([facility])[address] [place] [address] CARECOORDon 08-13-2024 CARECOORD Normal [facility] CARECOORD Normal [facility] CBC W Auto Differential pane l (Bld)Ordered By: Elin Cline on 08-13-2024 Basophils (Bld) [#/Vol] 0 10*3/uL 0.0 - 0.2 10*3/uL [facility] Basophils/100 WBC (Bld) 0 % 0.0 - 2.0 % [facility] Eosinophils (Bld) [#/Vol] 0 10*3/uL 0.0 - 0.5 10*3/uL [facility] Eosinophils/100 WBC (Bld) 0 % 0.0 - 6.0 % [facility] Erythrocyte distribution width (RBC) [Ratio] 15.9 % High 11.5 - 15.0 % [facility] Hematocrit (Bld) [Volume fraction] 28.2 % Low 35.0 - 47.0 % [facility] Hemoglobin (Bld) [Mass/Vol] 9.2 g/dL Low 11.7 - 16.0 g/dL [facility] Immature granulocytes (Bld) [#/Vol] 0 10*3/uL NINF - 0.1 10*3/uL [facility] Immature granulocytes/100 WBC (Bld) 0.6 % 0.0 - 2.0 % [facility] Interpretation and review of laboratory results Abnormal [facility] IPF 3 [facility] Lymphocytes (Bld) [#/Vol] 0.3 10*3/uL Low 1.0 - 4.3 10*3/uL [facility] Lymphocytes/100 WBC (Bld) 9 % Low 15.0 - 45.0 % [facility] MCH (RBC) [Entitic mass] 29.4 pg 26.0 - 34.0 pg [facility] MCHC (RBC) [Mass/Vol] 32.6 % 30.5 - 36.0 % [facility] MCV (RBC) [Entitic vol] 90.1 fL 77.0 - 99.0 fL [facility] Monocytes (Bld) [#/Vol] 0.1 10*3/uL 0.0 - 0.9 10*3/uL [facility] Monocytes/100 WBC (Bld) 3.8 % Low 5.0 - 13.0 % [facility] Neutrophils (Bld) [#/Vol] 2.7 10*3/uL 1.8 - 7.5 10*3/uL [facility] Neutrophils/100 WBC (Bld) 86.6 % High 38.0 - 82.0 % [facility] Nucleated RBC/100 WBC (Bld) [Ratio] 0 % [facility] Platelet mean volume (Bld) [Entitic vol] 10.5 fL 9.0 - 12.7 fL [facility] Platelets (Bld) [#/Vol] 78 10*3/uL Low 140 - 440 10*3/uL [facility] RBC (Bld) [#/Vol] 3.13 10*6/uL Low 3.80 - 5.2 0 10*6/uL [facility] WBC (Bld) [#/Vol] 3.1 10*3/uL Low 3.6 - 10.7 10*3/uL [facility] CBC WITH AUTO DIFFERENTIALon 08-13-2024 Basophils (Bld) [#/Vol] 0.0 10*3/uL Normal 0.0-0.2 [facility] Comment on above: Performed By: #### L [id number] ####Assembly Machine Tender: MARY SOTELO ([id number])[address] Basophils/100 WBC (Bld) 0.0 % Normal 0.0-2.0 [facility] Comment on above: Performed By: #### L [id number] ####Assembly Machine Tender: MARY [id number])[facility])[address] [place] [address] Eosinophils (Bld) [#/Vol] 0.0 10*3/uL Normal 0.0-0.5 [facility] Comment on above: Performed By: #### L [id number] ####Assembly Machine Tender: MARY SOTELO ([id number])[facility])[address] [place] [address] Eosinophils/100 WBC (Bld) 0.0 % Normal 0.0-6.0 [facility] Comment on above: Performed By: #### L [id number] ####Assembly Machine Tender: MARY SOTELO ([id number])[address] Erythrocyte distribution width (RBC) [Ratio] 15.9 % High 11.5-15.0 [facility] Comment on above: Performed By: #### L [id number] ####Assembly Machine Tender: MARY SOTELO ([id number])[facility])[address] [place] [address] Hematocrit (Bld) [Volume fraction] 28.2 % Low 35.0-47.0 [facility] Comment on above: Performed By: #### L [id number] ####Assembly Machine Tender: MARY SOTELO ([id number])[address] Hemoglobin (Bld) [Mass/Vol] 9.2 g/dL Low 11.7-16.0 [facility] Comment on above: Performed By: #### L [id number] ####Assembly Machine Tender: MARY SOTELO ([id number])[facility])[address] [place] [address] IMMATURE GRANS % 0.6 % Normal 0.0-2.0 [facility] Comment on above: Performed By: #### L [id number] ####Assembly Machine Tender: MARY SOTELO ([id number])[address] IMMATURE GRANS ABSOLUTE 0.0 10*3/uL Normal <0.1 [facility] Comment on above: Performed By: #### L [id number] ####Assembly Machine Tender: MARY SOTELO ([id number])[facility])[address] [place] [address] IPF 3 Normal [facility] Comment on above: Performed By: #### L [id number] ####Assembly Machine Tender: MARY SOTELO ([id number])[facility])[address] [place] [address] Lymphocytes (Bld) [#/Vol] 0.3 10*3/uL Low 1.0-4.3 [facility] Comment on above: Performed By: #### L [id number] ####Assembly Machine Tender: MARY SOTELO ([id number])[address] Lymphocytes/100 WBC (Bld) 9.0 % Low 15.0-45.0 [facility] Comment on above: Performed By: #### L [id number] ####Assembly Machine Tender: MARY SOTELO ([id number])[facility])[address] [place] [address] MCH (RBC) [Entitic mass] 29.4 pg Normal 26.0-34.0 [facility] Comment on above: Performed By: #### L [id number] ####Assembly Machine Tender: MARY SOTELO ([id number])[address] MCHC 32.6 % Normal 30.5-36.0 [facility] Comment on above: Performed By: #### L [id number] ####Assembly Machine Tender: MARY SOTELO ([id number])[address] MCV (RBC) [Entitic vol] 90.1 fL Normal 77.0-99.0 [facility] Comment on above: Performed By: #### L [id number] ####Assembly Machine Tender: MARY SOTELO ([id number])[facility] ([facility])[address] [place] [address] Monocytes (Bld) [#/Vol] 0.1 10*3/uL Normal 0.0-0.9 [facility] Comment on above: Performed By: #### L [id number] ####Assembly Machine Tender: MARY SOTELO ([id number])[facility])[address] [place] [address] Monocytes/100 WBC (Bld) 3.8 % Low 5.0-13.0 [facility] Comment on above: Performed By: #### L [id number] ####Assembly Machine Tender: MARY SOTELO ([id number])[facility])[address] [place] [address] NEUTROPHILS ABSOLUTE 2.7 10*3/uL Normal 1.8-7.5 [facility] Comment on above: Performed By: #### L [id number] ####Assembly Machine Tender: MARY SOTELO ([id number])[facility] ([facility])[address] [place] [address] Neutrophils/100 WBC (Bld) 86.6 % High 38.0-82.0 [facility] Comment on above: Performed By: #### L [id number] ####Assembly Machine Tender: MARY SOTELO ([id number])[facility] ([facility])[address] [place] [address] NRBC 0.0 /100 WBCs Normal 0.0-2.0 [facility] Comment on above: Performed By: #### L [id number] ####Assembly Machine Tender: MARY SOTELO ([id number])[facility] ([facility])[address] [place] [address] Platelet mean volume (Bld) [Entitic vol] 10.5 fL Normal 9.0-12.7 [facility] Comment on above: Performed By: #### L [id number] ####Assembly Machine Tender: MARY SOTELO ([id number])[facility] ([facility])[address] [place] [address] Platelets (Bld) [#/Vol] 78 10*3/uL Low 140-440 [facility] Comment on above: Performed By: #### L [id number] ####Assembly Machine Tender: MARY SOTELO ([id number])[facility])[address] [place] [address] RBC (Bld) [#/Vol] 3.13 10*6/uL Low 3.80-5.20 [facility] Comment on above: Performed By: #### L [id number] ####Assembly Machine Tender: MARY SOTELO ([id number])[facility])[address] [place] [address] WBC (Bld) [#/Vol] 3.1 10*3/uL Low 3.6-10.7 [facility] Comment on above: Performed By: #### L [id number] ####Assembly Machine Tender: MARY SOTELO ([id number])[facility])[address] [place] [address] Erythrocyte distribution width (RBC) [Ratio] 16.1 % High 11.5-15.0 [facility] Comment on above: Performed By: #### L [id number], [id number] ####Assembly Machine Tender: MARY SOTELO ([id number])[address] Hematocrit (Bld) [Volume fraction] 21.0 % Low 35.0-47.0 [facility] Comment on above: Performed By: #### L [id number], [id number] ####Assembly Machine Tender: MARY SOTELO ([id number])[address] Hemoglobin (Bld) [Mass/Vol] 6.7 g/dL Critically low 11.7-16.0 [facility] Comment on above: Performed By: #### L [id number], [id number] ####Assembly Machine Tender: MARY SOTELO ([id number])[address] IPF 3 Normal [facility] Comment on above: Performed By: #### L [id number], [id number] ####Assembly Machine Tender: MARY SOTELO ([id number])[facility])[address] [place] [address] MCH (RBC) [Entitic mass] 29.8 pg Normal 26.0-34.0 [facility] Comment on above: Performed By: #### Dora [id number], [id number] ####Assembly Machine Tender: MARY SOTELO ([id number])[facility])[address] [place] [address] MCHC 31.9 % Normal 30.5-36.0 [facility] Comment on above: Performed By: #### Dora [id number], [id number] ####Assembly Machine Tender: MARY SOTELO ([id number])[facility] ([facility])[address] [place] [address] MCV (RBC) [Entitic vol] 93.3 fL Normal 77.0-99.0 [facility] Comment on above: Performed By: #### Dora [id number], [id number] ####Assembly Machine Tender: MARY SOTELO ([id number])[facility])[address] [place] [address] Platelet mean volume (Bld) [Entitic vol] 11.1 fL Normal 9.0-12.7 [facility] Comment on above: Performed By: #### Dora [id number], [id number] ####Assembly Machine Tender: MARY SOTELO ([id number])[facility] ([facility])[address] [place] [address] Platelets (Bld) [#/Vol] 65 10*3/uL Low 140-440 [facility] Comment on above: Performed By: #### L [id number], [id number] ####Assembly Machine Tender: MARY SOTELO ([id number])[facility])[address] [place] [address] RBC (Bld) [#/Vol] 2.25 10*6/uL Low 3.80-5.20 [facility] Comment on above: Performed By: #### L [id number], [id number] ####Assembly Machine Tender: MARY SOTELO ([id number])[facility])[address] [place] [address] WBC (Bld) [#/Vol] 2.5 10*3/uL Low 3.6-10.7 [facility] Comment on above: Performed By: #### L [id number], [id number] ####Assembly Machine Tender: MARY SOTELO ([id number])[facility] ([facility])[address] [place] [address] COMPLETE URINALYSISon 2023 BACTERIA (#/HPF) IN URINE Few Abnormal Negative [facility] Comment on above: Performed By: #### L [id number] ####Assembly Machine Tender: MARY SOTELO ([id number])[facility])[address] [place] [address] BILIRUBIN, TOTAL PRESENCE IN URINE Negative Normal Negative [facility] Comment on above: Performed By: #### L [id number] ####Assembly Machine Tender: MARY SOTELO ([id number])[facility])[address] [place] [address] Clarity (U) Extra Turbid Abnormal Clear [facility] Comment on above: Performed By: #### L [id number] ####Assembly Machine Tender: MARY SOTELO ([id number])[facility])[address] [place] [address] Color (U) Yellow Normal Lt. Yellow [facility] Comment on above: Performed By: #### L [id number] ####Assembly Machine Tender: MARY SOTELO ([id number])[facility])[address] [place] [address] GLUCOSE (MG/DL) IN URINE Normal Normal Normal (<70) [facility] Comment on above: Performed By: #### L [id number] ####Assembly Machine Tender: MARY [id number])[facility] [place] [address] HEMOGLOBIN PRESENCE IN URINE 0.2 mg/dL Abnormal Negative [facility] Comment on above: Performed By: #### L [id number] ####Assembly Machine Tender: MARY SOTELO ([id number])[facility] ([facility])[address] [place] [address] Ketones Ql (U) Trace Abnormal Negative [facility] Comment on above: Performed By: #### L [id number] ####Assembly Machine Tender: MARY SOTELO ([id number])[facility] ([facility])[address] [place] [address] LEUKOCYTE ESTERASE PRESENCE IN URINE BY TEST STRIP 500 Bere/uL Abnormal Negative [facility] Comment on above: Performed By: #### L [id number] ####Assembly Machine Tender: MARY SOTELO ([id number])[facility] ([facility])[address] [place] [address] MUCUS (#/LPF) IN URINE SEDIMENT Few Normal Negative [facility] Comment on above: Performed By: #### L [id number] ####Assembly Machine Tender: MARY SOTELO ([id number])[facility] ([facility])[address] [place] [address] NITRITE PRESENCE IN URINE Negative Normal Negative [facility] Comment on above: Performed By: #### L [id number] ####Assembly Machine Tender: MARY SOTELO ([id number])[facility] ([facility])[address] [place] [address] NON-SQUAMOUS EPITHELIAL (#/HPF) IN URINE 0-2 Abnormal Negative [facility] Comment on above: Performed By: #### L [id number] ####Assembly Machine Tender: MARY SOTELO ([id number])[facility] ([facility])[address] [place] [address] pH (U) 5.5 [pH] Normal 5.0-8.0 [facility] Comment on above: Performed By: #### L [id number] ####Assembly Machine Tender: MARY SOTELO ([id number])[facility] [place] [address] Protein (U) [Mass/Vol] 100 mg/dL Abnormal Negative [facility] Comment on above: Performed By: #### L [id number] ####Assembly Machine Tender: MARY SOTELO ([id number])[facility] ([facility])[address] [place] [address] RBC (#/HPF) IN URINE SEDIMENT 11-25 Abnormal 0-2 [facility] Comment on above: Performed By: #### L [id number] ####Assembly Machine Tender: MARY SOTELO ([id number])[facility] ([facility])[address] [place] [address] Specific gravity (U) [Rel density] 1.021 Normal 1.005-1.030 [facility] Comment on above: Performed By: #### L [id number] ####Assembly Machine Tender: MARY SOTELO ([id number])[facility] ([facility])[address] [place] [address] SQUAMOUS EPITHELIAL CELLS (#/HPF) IN URINE SEDIMENT 0-2 Normal 3-5 [facility] Comment on above: Performed By: #### L [id number] ####Assembly Machine Tender: MARY SOTELO ([id number])[facility] ([facility])[address] [place] [address] UROBILINOGEN (MG/DL) IN URINE Normal Normal Normal (0-1) [facility] Comment on above: Performed By: #### L [id number] ####Assembly Machine Tender: MARY SOTELO ([id number])[facility] ([facility])[address] [place] [address] WBC (LEUKOCYTE) (#/HPF) IN URINE SEDIMENT >100 Abnormal 0-5 [facility] Comment on above: Performed By: #### L [id number] ####Assembly Machine Tender: MARY SOTELO ([id number])[facility] ([facility])[address] [place] [address] WBC (LEUKOCYTE) CLUMPS (#/HPF) IN URINE SEDIMENT Occasional Abnormal Negative [facility] Comment on above: Performed By: #### L [id number] ####Assembly Machine Tender: MARY SOTELO ([id number])[facility])[address] [place] [address] YEAST (#/HPF) IN URINE Many Abnormal Negative [facility] Comment on above: Performed By: #### L [id number] ####Assembly Machine Tender: MARY SOTELO ([id number])[facility])[address] [place] [address] [place] Consulton 08-13-2024 Consult Normal [facility] Consult Normal [facility] Consult Normal [facility] HAPTOGLOBINon 08-13-2024 HAPTOGLOBIN 44.2 mg/dL Normal 30.0-200.0 [facility] Comment on above: Performed By: #### L AB89, [id number], [id number], [id number] ####Assembly Machine Tender: MARY SOTELO ([id number])[address] HEMOGLOBIN AND HEMATOCRIT, B LOODon 08-13-2024 Hematocrit (Bld) [Volume fraction] 28.3 % Low 35.0-47.0 [facility] Comment on above: Order Comment: Recom mend 1 hour post transfusion Performed By: #### L [id number] ####Assembly Machine Tender: MARY SOTELO ([id number])[address] Hemoglobin (Bld) [Mass/Vol] 9.2 g/dL Low 11.7-16.0 [facility] Comment on above: Order Comment: Recom mend 1 hour post transfusion Performed By: #### L AB753 ####Assembly Machine Tender: MARY SOTELO ([id number])[facility])[address] [place] [address] Hematocrit (Bld) [Volume fraction] 27.5 % Low 35.0-47.0 [facility] Comment on above: Order Comment: Recom mend 1 hour post transfusion Performed By: #### L AB753 ####Assembly Machine Tender: MARY SOTELO ([id number])[facility])[address] [place] [address] Hemoglobin (Bld) [Mass/Vol] 8.7 g/dL Low 11.7-16.0 [facility] Comment on above: Order Comment: Recom mend 1 hour post transfusion Performed By: #### L [id number] ####Assembly Machine Tender: MARY SOTELO ([id number])[facility] ([facility])[address] [place] [address] HEPARIN-INDUCED PLATELET AB, REFL JONO UNFRAC HEP (BKR [facility])on 08-13-2024 [facility] HEPARIN INDUCED PLATELET ANTIBODY Negative Normal Negative [facility] Comment on above: Result Comment: This test [...] Thromb Haemost 2008;6:1304-12). Performed By: #### L [id number] ####[facility] ([facility])[address] [place], [place] QUEST PATIENT O.D. 0.052 Normal [facility] Comment on above: Result Comment: ____ ! O.D.units ! Result !! ! !! <=0.300 ! Negative !! >0.300 to <=0.500 ! Weak Positive !! >0.500 ! Positive !! ! !For additional information, please refer [email or web address](This link is being provided for informational/educational purposes only.)Test Performed by Hui Moat,Nakul Muniz [facility],[address] [place] [id number] Wells M.D., Ph.D., Director of [phone], CLIA [id number] Performed By: #### L [id number] ####[facility] ([facility])[address] [place] [address] [place] Hemoglobin (Bld) [Mass/Vol]O rdered By: Laurel Alva on 08-13-2024 Hematocrit (Bld) [Volume fraction] 28.3 % Low 35.0 - 47.0 % [facility] Interpretation and review of laboratory results Abnormal [facility] LACTATE DEHYDROGENASEon 08-03 LDH [Catalytic activity/Vol] 184 U/L Normal 120-246 [facility] Comment on above: Performed By: #### L AB89, [id number], [id number], LAB96 ####Assembly Machine Tender: MARY SOTELO ([id number])[facility] ([facility])[address] [place] [address] LACTIC ACID WITH REFLEXon Lactate [Moles/Vol] mmol/L Low 0.7-2.0 [facility] Comment on above: Performed By: #### L [id number] ####Assembly Machine Tender: MARY SOTELO ([id number])[facility] ([facility])[address] [place] [address] Laboratory - Chemistry and C hemistry - challengeon 08-13-2024 Glucose [Mass/Vol] 310 mg/dL High 70 - 100 mg/dL [facility] Glucose [Mass/Vol] 259 mg/dL High 70 - 100 mg/dL [facility] Glucose [Mass/Vol] 176 mg/dL High 70 - 100 mg/dL [facility] Troponin I.cardiac [Mass/Vol] 0.074 ng/mL High NINF - 0.034 ng/mL [facility] Glucose [Mass/Vol] 307 mg/dL High 70 - 100 mg/dL [facility] Troponin I.cardiac [Mass/Vol] 0.07 ng/mL High NINF - 0.034 ng/mL [facility] Troponin I.cardiac [Mass/Vol] 0.065 ng/mL High NINF - 0.034 ng/mL [facility] Glucose [Mass/Vol] 259 mg/dL High 70 - 100 mg/dL [facility] Troponin I.cardiac [Mass/Vol] 0.073 ng/mL High NINF - 0.034 ng/mL [facility] Lactate [Moles/Vol] mmol/L Low 0.7 - 2. 0 mmol/L [facility] Base excess Calc (Bld) [Moles/Vol] -3.2000 mmol/L Low -3.0 - 3.0 mmol/L [facility] CO2 (Bld) [Partial pressure] 49.4 mm[Hg] High - PINF [facility] CO2 [Moles/Vol] 24.8 mmol/L 23.0 - 27.0 mmol/L [facility] HCO3 (Bld) [Moles/Vol] 23.3 mmol/L 21.0 - 25.0 mmol/L [facility] Oxygen (Bld) [Partial pressure] 84.7 mm[Hg] [facility] pH (Bld) 7.291 [pH] Low 7.350 - 7.450 [facility] Beta hydroxybutyrate [Mass/Vol] 33.8 mg/dL High 0.20 - 2.81 mg/dL [facility] Laboratory - Hematology and Cell countson 08-13-2024 Haptoglobin [Mass/Vol] 44.2 mg/dL 30.0 - 200.0 mg/dL [facility] Hemoglobin (Bld) [Mass/Vol] 8.3 g/dL Screen only [facility] Anisocytosis Ql (Bld) Slight Abnormal (none) [facility] Band form neutrophils (Bld) [#/Vol] 0.1 10*3/uL High NINF - 0.0 10*3/uL [facility] Band form neutrophils/100 WBC (Bld) 2 % High NINF - 0 % [facility] Basophilic stippling LM Ql (Bld) Slight Abnormal (none) [facility] Lymphocytes (Bld) [#/Vol] 0.2 10*3/uL Low 1.0 - 4.3 10*3/uL [facility] Lymphocytes/100 WBC (Bld) 7 % Low 15 - 45 % [facility] Microcytes Ql (Bld) Slight Abnormal (none) [facility] Monocytes (Bld) [#/Vol] 0 10*3/uL 0.0 - 0.9 10*3/uL [facility] Monocytes/100 WBC (Bld) 0 % Low 5 - 13 % [facility] Neutrophils (Bld) [#/Vol] 2.3 10*3/uL 1.8 - 7.5 10*3/uL [facility] Polychromasia LM Ql (Bld) Slight Abnormal (none) [facility] RBC morphology finding Nom (Bld) abnormal [facility] Segmented neutrophils/100 WBC (Bld) 91 % High 38 - 82 % [facility] Laboratory - Hematology and Cell countsOrdered By: Laurel Alva on 08-13-2024 Hemoglobin (Bld) [Mass/Vol] 9.2 g/dL Low 11.7 - 16.0 g/dL [facility] MAGNESIUMon 08-13-2024 Magnesium [Mass/Vol] 1.5 mg/dL Low 1.6-2.3 [facility] Comment on above: Performed By: #### L AB15, [id number], [id number] ####Assembly Machine Tender: MARY SOTELO ([id number])[facility])[address] [place] [address] MANUAL DIFFERENTIAL (CELLAVI ESPINOZA)on 08-13-2024 ANISOCYTOSIS PRESENCE IN BLOOD BY LIGHT MICROSCOPY Slight Abnormal (none) [facility] Comment on above: Performed By: #### L [id number], [id number] ####Assembly Machine Tender: MARY SOTELO ([id number])[facility] ([facility])[address] [place] [address] BAND NEUTROPHILS TOTAL PER COUNTED LEUKOCYTES BY MANUAL COUNT 2 Normal [facility] Comment on above: Performed By: #### L [id number], [id number] ####Assembly Machine Tender: MARY SOTELO ([id number])[facility] ([facility])[address] [place] [address] [place] BANDS (10*3/UL) IN BLOOD-CELLAVISION 0.1 10*3/uL High <=0.0 [facility] Comment on above: Performed By: #### L [id number], [id number] ####Assembly Machine Tender: MARY SOTELO ([id number])[facility] [place] [address] BASOPHILIC STIPPLING PRESENCE IN BLOOD BY LIGHT MICROSCOPY Slight Abnormal (none) [facility] Comment on above: Performed By: #### L [id number], [id number] ####Assembly Machine Tender: MARY SOTELO ([id number])[facility] [place] [address] BASOPHILS TOTAL PER COUNTED LEUKOCYTES BY MANUAL COUNT Normal [facility] Comment on above: Performed By: #### L [id number], [id number] ####Assembly Machine Tender: MARY SOTELO ([id number])[facility] ([facility])[address] [place] [address] BLASTS TOTAL PER COUNTED LEUKOCYTES BY MANUAL COUNT Normal [facility] Comment on above: Performed By: #### L [id number], [id number] ####Assembly Machine Tender: MARY SOTELO ([id number])[facility] ([facility])[address] [place] [address] [place] EOSINOPHILS TOTAL PER COUNTED LEUKOCYTES BY MANUAL COUNT [facility] Comment on above: Performed By: #### L [id number], [id number] ####Assembly Machine Tender: MARY SOTELO ([id number])[facility] ([facility])[address] [place] [address] [place] LYMPHOCYTES (10*3/UL) IN BLOOD-CELLAVISION 0.2 10*3/uL Low 1.0-4.3 [facility] Comment on above: Performed By: #### L [id number], [id number] ####Assembly Machine Tender: MARY SOTELO ([id number])[facility] ([facility])[address] [place] [address] [place] LYMPHOCYTES TOTAL PER COUNTED LEUKOCYTES BY MANUAL COUNT [address] [facility] Comment on above: Performed By: #### L [id number], [id number] ####Assembly Machine Tender: MARY SOTELO ([id number])[facility] ([facility])[address] [place] [address] [place] LYMPHOCYTES/100 LEUKOCYTES IN BLOOD-CELLAVISION 7 % Low 15-45 [facility] Comment on above: Performed By: #### L [id number], [id number] ####Assembly Machine Tender: MARY SOTELO ([id number])[facility] ([facility])[address] [place] [address] [place] METAMYELOCYTES TOTAL PER COUNTED LEUKOCYTES BY MANUAL COUNT Normal [facility] Comment on above: Performed By: #### L [id number], [id number] ####Assembly Machine Tender: MARY SOTELO ([id number])[facility])[address] [place] [address] MICROCYTES (PRESENCE) IN BLOOD BY LIGHT MICROSCOPY Slight Abnormal (none) [facility] Comment on above: Performed By: #### L [id number], [id number] ####Assembly Machine Tender: MARY SOTELO ([id number])[facility] ([facility])[address] [place] [address] [place] MONOCYTES (10*3/UL) IN BLOOD-CELLAVISION 0.0 10*3/uL Normal 0.0-0.9 [facility] [facility] Comment on above: Performed By: #### L [id number], [id number] ####Assembly Machine Tender: MARY SOTELO ([id number])[facility] ([facility])[address] [place] [address] [place] MONOCYTES TOTAL PER COUNTED LEUKOCYTES BY MANUAL COUNT 0 Normal [facility] Comment on above: Performed By: #### L [id number], [id number] ####Assembly Machine Tender: MARY SOTELO ([id number])[facility])[address] [place] [address] [place] MONOCYTES/100 LEUKOCYTES IN BLOOD-KACEY 0 % Low 5-13 [facility] Comment on above: Performed By: #### L [id number], [id number] ####Assembly Machine Tender: MARY SOTELO ([id number])[facility] ([facility])[address] [place] [address] [place] MYELOCYTES COUNTED BY MANUAL COUNT Normal [facility] Comment on above: Performed By: #### L [id number], [id number] ####Assembly Machine Tender: MARY SOTELO ([id number])[facility])[address] [place] [address] NEUTROPHILS BAND FORM/100 LEUKOCYTES IN BLOOD-CELLAVISI 2 % High <=0 [facility] Comment on above: Performed By: #### L [id number], [id number] ####Assembly Machine Tender: MARY SOTELO ([id number])[facility] ([facility])[address] [place] [address] NEUTROPHILS TOTAL PER COUNTED LEUKOCYTES BY MANUAL COUNT 90 Normal [facility] Comment on above: Performed By: #### L [id number], [id number] ####Assembly Machine Tender: MARY SOTELO ([id number])[facility] ([facility])[address] [place] [address] POLYCHROMASIA IN BLOOD BY LIGHT MICROSCOPY Slight Abnormal (none) [facility] Comment on above: Performed By: #### L [id number], [id number] ####Assembly Machine Tender: MARY SOTELO ([id number])[facility])[address] [place] [address] PROMYELOCYTES TOTAL PER COUNTED LEUKOCYTES BY MANUAL COUNT Normal [facility] Comment on above: Performed By: #### L [id number], [id number] ####Assembly Machine Tender: MARY SOTELO ([id number])[facility])[address] [place] [address] [place] RBC MORPHOLOGY IN BLOOD abnormal Normal [facility] Comment on above: Performed By: #### L [id number], [id number] ####Assembly Machine Tender: MARY SOTELO ([id number])[facility] ([facility])[address] [place] [address] [place] SEGMENTED NEUTROPHILS (10*3/UL) IN BLOOD-CELLAVISION 2.3 10*3/uL Normal 1.8-7.5 [facility] Comment on above: Performed By: #### L [id number], [id number] ####Assembly Machine Tender: MARY SOTELO ([id number])[facility] ([facility])[address] [place] [address] SEGMENTED NEUTROPHILS/100 LEUKOCYTES-CE 91 % High 38-82 [facility] Comment on above: Performed By: #### L [id number], [id number] ####Assembly Machine Tender: MARY SOTELO ([id number])[facility] ([facility])[address] [place] [address] UNCLASSIFIED CELLS TOTAL PER COUNTED LEUKOCYTES BY MANUAL COUNT Normal [facility] Comment on above: Performed By: #### L [id number], [id number] ####Assembly Machine Tender: MARY SOTELO ([id number])[facility] ([facility])[address] [place] [address] VARIANT LYMPHOCYTES TOTAL PER COUNTED LEUKOCYTES BY MANUAL COUNT Normal [facility] Comment on above: Performed By: #### L [id number], [id number] ####Assembly Machine Tender: MARY SOTELO ([id number])[facility] ([facility])[address] [place] [address] No Panel Informationon 08-13 Interpretation and review of laboratory results Abnormal [facility] Interpretation and review of laboratory results Abnormal [facility] Interpretation and review of laboratory results Abnormal [facility] Interpretation and review of laboratory results Abnormal [facility] Interpretation and review of laboratory results Normal [facility] Interpretation and review of laboratory results Abnormal [facility] Interpretation and review of laboratory results Abnormal [facility] Interpretation and review of laboratory results Abnormal [facility] Source Of Oxygen 30% Oxygen [facility] alth [facility] Interpretation and review of laboratory results Abnormal [facility] Bands Manual 2 [facility] Lymphocytes Manual 7 [facility] Monocytes Manual 0 [facility] alth Neutrophils Manual 90 [facility] No Panel InformationOrdered By: Tanisha Main on 08-13-2024 Interpretation and review of laboratory results Abnormal [facility] mecA/C (MRSE/MRSL) Detected Abnormal Not Detected [facility] Staphylococcus epidermidis Detected Abnormal Not Detected [facility] Nursing Noteon 08-13-2024 Nursing Note Normal [facility] PHOSPHORUSon 08-13-2024 Phosphate [Mass/Vol] 3.0 mg/dL Normal 2.5-4.5 [facility] Comment on above: Performed By: #### L [id number], [id number], [id number] ####Assembly Machine Tender: MARY SOTELO ([id number])[facility])[address] [place] [address] PROTIME AND APTTon aPTT Coag (Bld) [Time] 29.6 s Normal 20.0-30.5 [facility] Comment on above: Performed By: #### L [id number] ####Assembly Machine Tender: MARY SOTELO ([id number])[facility] ([facility])[address] [place] [address] INR Coag (PPP) [Relative time] 1.0 {INR} Normal 0.9-1.1 [facility] Comment on above: Result Comment: Elias mmended [...] prevent Myocardial Infarction Performed By: #### L [id number] ####Assembly Machine Tender: MARY SOTELO ([id number])[facility] ([facility])[address] [place] [address] PT Coag (PPP) [Time] 11.6 s Normal 9.0-12.0 [facility] Comment on above: Performed By: #### L [id number] ####Assembly Machine Tender: MARY SOTELO ([id number])[facility])[address] [place] [address] Progress Noteon 08-13-2024 Progress Note Chart reviewed, as I was notified via [facility] of patient's readmission to [facility] yesterday (08/12) with altered mental status. Closing patient's transitional program at this time d/t her readmission. Normal [facility] Progress Note Normal [facility] Progress Note Normal [facility] RESPIRATORY PATHOGENS PANEL BY PCRon 08-13-2024 RESPIRATORY PATHOGENS PANEL BY PCR Normal [facility] Comment on above: Performed By: #### L [id number] ####Assembly Machine Tender: MARY SOTELO ([id number])[facility] ([facility])[address] [place] [address] Respiratory pathogens DNA an d RNA panel MARISA+non-probe (Nph)on 08-13-2024 Adenovirus Not detected Not Detected [facility] B. pertussis DNA MARISA+probe Ql (Unsp spec) Not detected Not Detected [facility] Bordetella parapertussis Not detected Not Detected [facility] Chlamydia pneumoniae Not detected Not Detected [facility] Coronavirus 229E Not detected Not Detected [facility] Coronavirus HKU1 Not detected Not Detected [facility] Coronavirus NL63 Not detected Not Detected [facility] Coronavirus OC43 Not detected Not Detected [facility] FLUAV RNA MARISA+non-probe Ql (Nph) Not detected Not Detected [facility] FLUBV RNA MARISA+non-probe Ql (Nph) Not detected Not Detected [facility] Human Metapneumovirus Not detected Not Detected [facility] Human Rhinovirus/Enterovirus Not detected Not Detected [facility] Interpretation and review of laboratory results Normal [facility] Mycoplasma pneumoniae Not detected Not Detected [facility] Parainfluenza 1 Not detected Not Detected [facility] Parainfluenza 2 Not detected Not Detected [facility] Parainfluenza 3 Not detected Not Detected [facility] Parainfluenza 4 Not detected Not Detected [facility] Respiratory Syncytial Virus Not detected Not Detected [facility] SARS-CoV-2 (COVID-19) RNA MARISA+non-probe Ql (Nph) Not detected Not Detected [facility] TROPONIN Ion 08-13-2024 Troponin I.cardiac [Mass/Vol] 0.074 ng/mL High <0.034 [facility] Comment on above: Result Comment: BINA Olivarez COMMENTS:Patients with high levels of Biotin oral intake (ie >5 mg/day) may have falsely decreased Troponin levels. Performed By: #### L [id number] ####Assembly Machine Tender: MARY SOTELO ([id number])[facility] [place] [address] [place] Troponin I.cardiac [Mass/Vol] 0.070 ng/mL High <0.034 [facility] [employer] [facility] Comment on above: Result Comment: BINA Olivarez COMMENTS:Patients with high levels of Biotin oral intake (ie >5 mg/day) may have falsely decreased Troponin levels. Performed By: #### L [id number] ####Assembly Machine Tender: MARY SOTELO ([id number])[facility] [place] [address] Troponin I.cardiac [Mass/Vol] 0.073 ng/mL High <0.034 [facility] [employer] [facility] Comment on above: Result Comment: BINA Olivarez COMMENTS:Patients with high levels of Biotin oral intake (ie >5 mg/day) may have falsely decreased Troponin levels. Performed By: #### L [id number] ####Assembly Machine Tender: MARY SOTELO ([id number])[facility] [place] [address] [place] TROPONIN, WITH SERIAL REFLEX on 08-13-2024 Troponin I.cardiac [Mass/Vol] 0.065 ng/mL High <0.034 [facility] [employer] [facility] Comment on above: Result Comment: BINA Olivarez COMMENTS:Patients with high levels of Biotin oral intake (ie >5 mg/day) may have falsely decreased Troponin levels. Performed By: #### L AB89, [id number], [id number], LAB96 ####Assembly Machine Tender: MARY SOTELO ([id number])[facility] [place] [address] [place] Troponin I.cardiac [Mass/Vol ]on 08-13-2024 Interpretation and review of laboratory results Abnormal [facility] Interpretation and review of laboratory results Abnormal [facility] Interpretation and review of laboratory results Abnormal [facility] Interpretation and review of laboratory results Abnormal [facility] URINE CULTUREon 08-13-2024 Bacteria identified Cx Nom (U) Normal [facility] Comment on above: Performed By: #### L [id number] ####Assembly Machine Tender: MARY SOTELO ([id number])[facility] ([facility])[address] [place] [address] Urinalysis complete panel (U )on 08-13-2024 Bacteria LM.HPF (Urine sed) [#/Area] Few Abnormal Negative /HPF [facility] Bilirubin Ql (U) Negative Negative mg/dL [facility] Clarity (U) Extra Turbid Abnormal [facility] Color (U) Yellow Lt. Yellow [facility] Epithelial cells.squamous LM.HPF (Urine sed) [#/Area] 0-2 [facility] Glucose Ql (U) Normal Normal (<70) mg/dL [facility] Hemoglobin Ql (U) 0.2 mg/dL Abnormal Negative [facility] Interpretation and review of laboratory results Abnormal [facility] Ketones (U) [Mass/Vol] Trace Abnormal Negat pawan mg/dL [facility] Leukocyte clumps LM.HPF (Urine sed) [#/Area] Occasional Abnormal Negative /HPF [facility] Leukocyte esterase Test strip Ql (U) 500 Abnormal Negative Bere/uL [facility] Mucus LM.HPF (Urine sed) [#/Area] Few Negative /LPF [facility] Nitrite Ql (U) Negative Negative [facility] th Non-Squamous Epithalial Cells, Urine 0-2 Abnormal Negative /HPF [facility] pH (U) 5.5 [pH] 5.0 - 8.0 pH [facility] Protein (U) [Mass/Vol] 100 mg/dL Abnormal Negative [facility] RBC LM.HPF (Urine sed) [#/Area] 11 Abnormal [facility] Specific gravity (U) [Rel density] 1.021 1.005 - 1.030 [facility] Urobilinogen (U) [Mass/Vol] Normal Normal (0-1) mg/dL [facility] WBC LM.HPF (Urine sed) [#/Area] /[HPF] Abnormal [facility] Yeast.budding LM.HPF (Urine sed) [#/Area] Many Abnormal Negative /HPF [facility] BASIC METABOLIC PANELon 08-03 Anion gap [Moles/Vol] 4 mmol/L Normal 3-13 [facility] Comment on above: Performed By: #### L [id number], LAB15, [id number] ####Assembly Machine Tender: MARY SOTELO ([id number])[facility] ([facility])[address] [place] [address] Calcium [Mass/Vol] 6.6 mg/dL Low 8.4-10.4 [facility] Comment on above: Performed By: #### L [id number], LAB15, [id number] ####Assembly Machine Tender: MARY SOTELO ([id number])[facility] ([facility])[address] [place] [address] Chloride [Moles/Vol] 100 mmol/L Normal 98-107 [facility] Comment on above: Performed By: #### L [id number], LAB15, [id number] ####Assembly Machine Tender: MARY SOTELO ([id number])[facility] ([facility])[address] [place] [address] CO2 [Moles/Vol] 28 mmol/L Normal 22-30 [facility] Comment on above: Performed By: #### L [id number], LAB15, [id number] ####Assembly Machine Tender: MARY SOTELO ([id number])[facility] ([facility])[address] [place] [address] Creatinine [Mass/Vol] 2.38 mg/dL High 0.52-1.04 [facility] Comment on above: Performed By: #### L [id number], LAB15, [id number] ####Assembly Machine Tender: MARY SOTELO ([id number])[facility] ([facility])[address] [place] [address] GLOMERULAR FILTRATION RATE ML/MIN/1.73 SQ M.PREDICTED 22.3 mL/min/1.73m*2 Low >60.0 [facility] Comment on above: Result Comment: Calc ulation based on the Chronic Kidney Disease Epidemiology Collaboration (CKD-EPI) equation refit without adjustment for race Performed By: #### L [id number], LAB15, [id number] ####Assembly Machine Tender: MARY SOTELO ([id number])[facility] ([facility])[address] [place] [address] [place] Glucose [Mass/Vol] 229 mg/dL High 70-100 [facility] Comment on above: Performed By: #### L [id number], LAB15, [id number] ####Assembly Machine Tender: MARY SOTELO ([id number])[facility] [place] [address] Potassium [Moles/Vol] 3.6 mmol/L Normal 3.5-5.1 [facility] Comment on above: Performed By: #### L [id number], LAB15, [id number] ####Assembly Machine Tender: MARY SOTELO ([id number])[facility] [place] [address] Sodium [Moles/Vol] 132 mmol/L Low 135-145 [facility] Comment on above: Performed By: #### L [id number], LAB15, [id number] ####Assembly Machine Tender: MARY SOTELO ([id number])[facility] [place] [address] [place] Urea nitrogen [Mass/Vol] 19 mg/dL High 7-17 [facility] Comment on above: Performed By: #### L [id number], LAB15, [id number] ####Assembly Machine Tender: MARY SOTELO ([id number])[facility] [place] [address] BLOOD CULTUREon 08-12-2024 Bacteria identified Cx Nom (Bld) Normal [facility] Comment on above: Performed By: #### L [id number] ####Assembly Machine Tender: MARY SOTELO ([id number])[facility] ([facility])[address] [place] [address] [place] Performed By: #### L [id number], [id number] ####Assembly Machine Tender: MARY SOTELO ([id number])[facility] ([facility])[address] [place] [address] BLOOD CULTURE IDENTIFICATION - AEROBICon 10-10-2024 BLOOD CULTURE IDENTIFICATION - AEROBIC Normal [facility] Comment on above: Performed By: #### L [id number], [id number] ####Assembly Machine Tender: MARY SOTELO ([id number])[facility])[address] [place] [address] BLOOD GAS, VENOUSon 08-12-20 Base excess Calc (BldV) [Moles/Vol] -2.5000 mmol/L Normal -3.0-3.0 [facility] Comment on above: Performed By: #### L [id number] ####Assembly Machine Tender: MARY SOTELO ([id number])[facility] ([facility])[address] [place] [address] CO2 [Moles/Vol] 26.1 mmol/L Normal 24.0-28.0 [facility] Comment on above: Performed By: #### L AB79 ####Assembly Machine Tender: MARY SOTELO ([id number])[facility])[address] [place] [address] HCO3 (Bld) [Moles/Vol] 24.5 mmol/L Normal 23.0-27.0 [facility] Comment on above: Performed By: #### L AB79 ####Assembly Machine Tender: MARY SOTELO ([id number])[facility])[address] [place] [address] Hemoglobin (Bld) [Mass/Vol] 9.6 g/dL Normal Screen only [facility] Comment on above: Performed By: #### L AB79 ####Assembly Machine Tender: MARY SOTELO ([id number])[facility])[address] [place] [address] OXYGEN (MM HG) IN VENOUS BLOOD 57.8 mm Hg Normal [facility] Comment on above: Performed By: #### L AB79 ####Assembly Machine Tender: MARY SOTELO ([id number])[facility])[address] [place] [address] OXYGEN SATURATION (%) IN VENOUS BLOOD 89.0 % Normal [facility] Comment on above: Performed By: #### L AB79 ####Assembly Machine Tender: MARY SOTELO ([id number])[facility] ([facility])[address] [place] [address] PCO2, ROHIT 53.4 mm Hg Normal 40.0-55.0 [facility] Comment on above: Performed By: #### L AB79 ####Assembly Machine Tender: MARY SOTELO ([id number])[facility])[address] [place] [address] PH VENOUS 7.279 Low 7.330-7.430 [facility] Comment on above: Performed By: #### L AB79 ####Assembly Machine Tender: MARY SOTELO ([id number])[facility])[address] [place] [address] SOURCE OF OXYGEN 30% Oxygen Normal [facility] Comment on above: Result Comment: BINA Olivarez COMMENTS:Assessment of oxygenation is best done with an arterial blood gas determination. Reference ranges for pO2, bicarbonate, and base excess are for mixed venous blood. Specimens drawn from a peripheral vein will often have higher values. Performed By: #### L AB79 ####Assembly Machine Tender: MARY SOTELO ([id number])[facility] ([facility])[address] [place] [address] Base excess Calc (BldV) [Moles/Vol] -1.4000 mmol/L Normal -3.0-3.0 [facility] Comment on above: Performed By: #### L [id number] ####Assembly Machine Tender: MARY SOTELO ([id number])[facility] ([facility])[address] [place] [address] CO2 [Moles/Vol] 27.7 mmol/L Normal 24.0-28.0 [facility] Comment on above: Performed By: #### L [id number] ####Assembly Machine Tender: MARY SOTELO ([id number])[facility])[address] [place] [address] HCO3 (Bld) [Moles/Vol] 25.9 mmol/L Normal 23.0-27.0 [facility] Comment on above: Performed By: #### L AB79 ####Assembly Machine Tender: MARY SOTELO ([id number])[facility] ([facility])[address] [place] [address] Hemoglobin (Bld) [Mass/Vol] 7.7 g/dL Normal Screen only [facility] Comment on above: Performed By: #### L [id number] ####Assembly Machine Tender: MARY SOTELO ([id number])[facility] ([facility])[address] [place] [address] OXYGEN (MM HG) IN VENOUS BLOOD 73.2 mm Hg Normal [facility] Comment on above: Performed By: #### L [id number] ####Assembly Machine Tender: MARY SOTELO ([id number])[facility])[address] [place] [address] OXYGEN SATURATION (%) IN VENOUS BLOOD 94.9 % Normal [facility] Comment on above: Performed By: #### L [id number] ####Assembly Machine Tender: MARY SOTELO ([id number])[facility] ([facility])[address] [place] [address] PCO2, ROHIT 58.7 mm Hg High 40.0-55.0 [facility] Comment on above: Performed By: #### L AB79 ####Assembly Machine Tender: MARY SOTELO ([id number])[facility])[address] [place] [address] PH VENOUS 7.262 Low 7.330-7.430 [facility] Comment on above: Performed By: #### L [id number] ####Assembly Machine Tender: MARY SOTELO ([id number])[facility] ([facility])[address] [place] [address] SOURCE OF OXYGEN Bi-PAP Normal [facility] Comment on above: Result Comment: BINA [...] higher values. Performed By: #### L [id number] ####Assembly Machine Tender: MARY SOTELO ([id number])[facility] ([facility])[address] [place] [address] Base excess Calc (BldV) [Moles/Vol] -0.7000 mmol/L Normal -3.0-3.0 [facility] Comment on above: Performed By: #### L [id number] ####Assembly Machine Tender: MARY SOTELO ([id number])[facility] ([facility])[address] [place] [address] CO2 [Moles/Vol] 33.5 mmol/L High 24.0-28.0 [facility] Comment on above: Performed By: #### L [id number] ####Assembly Machine Tender: MARY SOTELO ([id number])[facility] ([facility])[address] [place] [address] HCO3 (Bld) [Moles/Vol] 30.4 mmol/L High 23.0-27.0 [facility] Comment on above: Performed By: #### L AB79 ####Assembly Machine Tender: MARY SOTELO ([id number])[facility] ([facility])[address] [place] [address] Hemoglobin (Bld) [Mass/Vol] 9.1 g/dL Normal Screen only [facility] Comment on above: Performed By: #### L [id number] ####Assembly Machine Tender: MARY SOTELO ([id number])[facility] ([facility])[address] [place] [address] OXYGEN (MM HG) IN VENOUS BLOOD 44.4 mm Hg Normal [facility] Comment on above: Performed By: #### L [id number] ####Assembly Machine Tender: MARY SOTELO ([id number])[facility])[address] [place] [address] OXYGEN SATURATION (%) IN VENOUS BLOOD 74.5 % Normal [facility] Comment on above: Performed By: #### L [id number] ####Assembly Machine Tender: MARY SOTELO ([id number])[facility] ([facility])[address] [place] [address] PCO2, ROHIT 101.8 mm Hg High 40.0-55.0 [facility] Comment on above: Performed By: #### L [id number] ####Assembly Machine Tender: MARY SOTELO ([id number])[facility] ([facility])[address] [place] [address] PH VENOUS 7.093 Low 7.330-7.430 [facility] Comment on above: Performed By: #### L [id number] ####Assembly Machine Tender: MARY SOTELO ([id number])[facility] ([facility])[address] [place] [address] SOURCE OF OXYGEN Nasal cannula Normal [facility] Comment on above: Result Comment: 4 yousif Schilling COMMENTS:Assessment of oxygenation is best done with an arterial blood gas determination. Reference ranges for pO2, bicarbonate, and base excess are for mixed venous blood. Specimens drawn from a peripheral vein will often have higher values.Interpret with caution, pO2 value falsely increased due to vacuum in tube. For accurate results, please draw on a syringe. Performed By: #### L AB79 ####Assembly Machine Tender: MARY SOTELO ([id number])[facility] ([facility])[address] [place] [address] BLOOD TYPE AND SCREEN GELon 08-12-2024 ABO GROUPING O Normal [facility] Comment on above: Performed By: #### L [id number] ####Assembly Machine Tender: MARY SOTELO ([id number])[facility] ([facility])[address] [place] [address] RH TYPE IN BLOOD Positive Normal [facility] Comment on above: Performed By: #### L [id number] ####Assembly Machine Tender: MARY SOTELO ([id number])[facility] ([facility])[address] [place] [address] CBC WITH AUTO DIFFERENTIALon 08-12-2024 Basophils (Bld) [#/Vol] 0.0 10*3/uL Normal 0.0-0.2 [facility] Comment on above: Performed By: #### L [id number], [id number] ####Assembly Machine Tender: MARY SOTELO ([id number])[facility])[address] [place] [address] Basophils/100 WBC (Bld) 0.8 % Normal 0.0-2.0 [facility] Comment on above: Performed By: #### L AB296, [id number] ####Assembly Machine Tender: MARY SOTELO ([id number])[facility])[address] [place] [address] Eosinophils (Bld) [#/Vol] 0.1 10*3/uL Normal 0.0-0.5 [facility] Comment on above: Performed By: #### L AB296, [id number] ####Assembly Machine Tender: MARY SOTELO ([id number])[facility])[address] [place] [address] Eosinophils/100 WBC (Bld) 2.9 % Normal 0.0-6.0 [facility] Comment on above: Performed By: #### L AB296, [id number] ####Assembly Machine Tender: MARY SOTELO ([id number])[facility])[address] [place] [address] Erythrocyte distribution width (RBC) [Ratio] 16.4 % High 11.5-15.0 [facility] Comment on above: Performed By: #### L AB296, [id number] ####Assembly Machine Tender: MARY SOTELO ([id number])[facility])[address] [place] [address] Hematocrit (Bld) [Volume fraction] 22.3 % Low 35.0-47.0 [facility] Comment on above: Performed By: #### L AB296, [id number] ####Assembly Machine Tender: MARY SOTELO ([id number])[facility])[address] [place] [address] Hemoglobin (Bld) [Mass/Vol] 6.9 g/dL Critically low 11.7-16.0 [facility] Comment on above: Performed By: #### L AB296, [id number] ####Assembly Machine Tender: MARY SOTELO ([id number])[facility] ([facility])[address] [place] [address] IMMATURE GRANS % 0.5 % Normal 0.0-2.0 [facility] Comment on above: Performed By: #### L AB296, [id number] ####Assembly Machine Tender: MARY SOTELO ([id number])[facility])[address] [place] [address] IMMATURE GRANS ABSOLUTE 0.0 10*3/uL Normal <0.1 [facility] Comment on above: Performed By: #### L AB296, [id number] ####Assembly Machine Tender: MARY SOTELO ([id number])[facility])[address] [place] [address] IPF 4 Normal [facility] Comment on above: Performed By: #### Dora AB296, [id number] ####Assembly Machine Tender: MARY SOTELO ([id number])[facility])[address] [place] [address] Lymphocytes (Bld) [#/Vol] 0.6 10*3/uL Low 1.0-4.3 [facility] Comment on above: Performed By: #### L AB296, [id number] ####Assembly Machine Tender: MARY SOTELO ([id number])[facility])[address] [place] [address] Lymphocytes/100 WBC (Bld) 14.8 % Low 15.0-45.0 [facility] Comment on above: Performed By: #### L AB296, [id number] ####Assembly Machine Tender: MARY SOTELO ([id number])[facility])[address] [place] [address] MCH (RBC) [Entitic mass] 28.9 pg Normal 26.0-34.0 [facility] Comment on above: Performed By: #### L AB296, [id number] ####Assembly Machine Tender: MARY SOTELO ([id number])[facility])[address] [place] [address] MCHC 30.9 % Normal 30.5-36.0 [facility] Comment on above: Performed By: #### L AB296, [id number] ####Assembly Machine Tender: MARY SOTELO ([id number])[facility] ([facility])[address] [place] [address] MCV (RBC) [Entitic vol] 93.3 fL Normal 77.0-99.0 [facility] Comment on above: Performed By: #### L AB296, [id number] ####Assembly Machine Tender: MARY SOTELO ([id number])[facility])[address] [place] [address] Monocytes (Bld) [#/Vol] 0.2 10*3/uL Normal 0.0-0.9 [facility] Comment on above: Performed By: #### L AB296, [id number] ####Assembly Machine Tender: MARY SOTELO ([id number])[facility] ([facility])[address] [place] [address] Monocytes/100 WBC (Bld) 5.0 % Normal 5.0-13.0 [facility] Comment on above: Performed By: #### L AB296, [id number] ####Assembly Machine Tender: MARY SOTELO ([id number])[facility])[address] [place] [address] NEUTROPHILS ABSOLUTE 2.9 10*3/uL Normal 1.8-7.5 [facility] Comment on above: Performed By: #### L AB296, [id number] ####Assembly Machine Tender: MARY SOTELO ([id number])[facility])[address] [place] [address] Neutrophils/100 WBC (Bld) 76.0 % Normal 38.0-82.0 [facility] Comment on above: Performed By: #### L AB296, [id number] ####Assembly Machine Tender: MARY SOTELO ([id number])[facility])[address] [place] [address] NRBC 0.0 /100 WBCs Normal 0.0-2.0 [facility] Comment on above: Performed By: #### L AB296, [id number] ####Assembly Machine Tender: MARY SOTELO ([id number])[facility])[address] [place] [address] Platelet mean volume (Bld) [Entitic vol] 10.6 fL Normal 9.0-12.7 [facility] Comment on above: Performed By: #### L AB296, [id number] ####Assembly Machine Tender: MARY SOTELO ([id number])[facility] ([facility])[address] [place] [address] Platelets (Bld) [#/Vol] 85 10*3/uL Low 140-440 [facility] Comment on above: Performed By: #### L AB296, [id number] ####Assembly Machine Tender: MARY SOTELO ([id number])[facility] ([facility])[address] [place] [address] RBC (Bld) [#/Vol] 2.39 10*6/uL Low 3.80-5.20 [facility] Comment on above: Performed By: #### L AB296, [id number] ####Assembly Machine Tender: MARY SOTELO ([id number])[facility])[address] [place] [address] WBC (Bld) [#/Vol] 3.8 10*3/uL Normal 3.6-10.7 [facility] Comment on above: Performed By: #### L AB296, [id number] ####Assembly Machine Tender: MARY SOTELO ([id number])[facility])[address] [place] [address] Basophils (Bld) [#/Vol] 0.0 10*3/uL Normal 0.0-0.2 [facility] Comment on above: Performed By: #### L [id number] ####Assembly Machine Tender: MARY SOTELO ([id number])[facility] [address] Basophils/100 WBC (Bld) 0.8 % Normal 0.0-2.0 [facility] Comment on above: Performed By: #### L [id number] ####Assembly Machine Tender: MARY SOTELO ([id number])[facility])[address] [place] [address] Eosinophils (Bld) [#/Vol] 0.1 10*3/uL Normal 0.0-0.5 [facility] Comment on above: Performed By: #### L [id number] ####Assembly Machine Tender: MARY SOTELO ([id number])[address] Eosinophils/100 WBC (Bld) 2.5 % Normal 0.0-6.0 [facility] Comment on above: Performed By: #### L [id number] ####Assembly Machine Tender: MARY SOTELO ([id number])[facility])[address] [place] [address] Erythrocyte distribution width (RBC) [Ratio] 16.5 % High 11.5-15.0 [facility] Comment on above: Performed By: #### L [id number] ####Assembly Machine Tender: MARY SOTELO ([id number])[address] Hematocrit (Bld) [Volume fraction] 26.5 % Low 35.0-47.0 [facility] Comment on above: Performed By: #### L [id number] ####Assembly Machine Tender: MARY SOTELO ([id number])[address] Hemoglobin (Bld) [Mass/Vol] 7.9 g/dL Low 11.7-16.0 [facility] Comment on above: Performed By: #### L [id number] ####Assembly Machine Tender: MARY SOTELO ([id number])[facility])[address] [place] [address] IMMATURE GRANS % 0.6 % Normal 0.0-2.0 [facility] Comment on above: Performed By: #### L [id number] ####Assembly Machine Tender: MARY SOTELO ([id number])[facility])[address] [place] [address] IMMATURE GRANS ABSOLUTE 0.0 10*3/uL Normal <0.1 [facility] Comment on above: Performed By: #### L [id number] ####Assembly Machine Tender: MARY SOTELO ([id number])[facility])[address] [place] [address] IPF 5 Normal [facility] Comment on above: Performed By: #### L [id number] ####Assembly Machine Tender: MARY SOTELO ([id number])[address] Lymphocytes (Bld) [#/Vol] 1.3 10*3/uL Normal 1.0-4.3 [facility] Comment on above: Performed By: #### L [id number] ####Assembly Machine Tender: MARY SOTELO ([id number])[address] Lymphocytes/100 WBC (Bld) 27.1 % Normal 15.0-45.0 [facility] Comment on above: Performed By: #### L [id number] ####Assembly Machine Tender: MARY SOTELO ([id number])[facility])[address] [place] [address] MCH (RBC) [Entitic mass] 28.4 pg Normal 26.0-34.0 [facility] Comment on above: Performed By: #### L [id number] ####Assembly Machine Tender: MARY SOTELO ([id number])[address] MCHC 29.8 % Low 30.5-36.0 [facility] Comment on above: Performed By: #### L [id number] ####Assembly Machine Tender: MARY SOTELO ([id number])[facility] ([facility])[address] [place] [address] MCV (RBC) [Entitic vol] 95.3 fL Normal 77.0-99.0 [facility] Comment on above: Performed By: #### L [id number] ####Assembly Machine Tender: MARY SOTELO ([id number])[facility] ([facility])[address] [place] [address] Monocytes (Bld) [#/Vol] 0.6 10*3/uL Normal 0.0-0.9 [facility] Comment on above: Performed By: #### L [id number] ####Assembly Machine Tender: MARY SOTELO ([id number])[facility])[address] [place] [address] Monocytes/100 WBC (Bld) 13.4 % High 5.0-13.0 [facility] Comment on above: Performed By: #### L [id number] ####Assembly Machine Tender: MARY SOTELO ([id number])[facility] ([facility])[address] [place] [address] NEUTROPHILS ABSOLUTE 2.7 10*3/uL Normal 1.8-7.5 [facility] Comment on above: Performed By: #### L [id number] ####Assembly Machine Tender: MARY SOTELO ([id number])[facility])[address] [place] [address] Neutrophils/100 WBC (Bld) 55.6 % Normal 38.0-82.0 [facility] Comment on above: Performed By: #### L [id number] ####Assembly Machine Tender: MARY SOTELO ([id number])[facility] ([facility])[address] [place] [address] NRBC 0.0 /100 WBCs Normal 0.0-2.0 [facility] Comment on above: Performed By: #### L [id number] ####Assembly Machine Tender: MARY SOTELO ([id number])[facility] ([facility])[address] [place] [address] Platelet mean volume (Bld) [Entitic vol] 11.3 fL Normal 9.0-12.7 [facility] Comment on above: Performed By: #### L [id number] ####Assembly Machine Tender: MARY SOTELO ([id number])[facility] ([facility])[address] [place] [address] Platelets (Bld) [#/Vol] 89 10*3/uL Low 140-440 [facility] Comment on above: Performed By: #### L [id number] ####Assembly Machine Tender: MARY SOTELO ([id number])[facility] ([facility])[address] [place] [address] RBC (Bld) [#/Vol] 2.78 10*6/uL Low 3.80-5.20 [facility] Comment on above: Performed By: #### L [id number] ####Assembly Machine Tender: MARY SOTELO ([id number])[facility] ([facility])[address] [place] [address] WBC (Bld) [#/Vol] 4.8 10*3/uL Normal 3.6-10.7 [facility] Comment on above: Performed By: #### L [id number] ####Assembly Machine Tender: MARY SOTELO ([id number])[facility] ([facility])[address] [place] [address] COMPREHENSIVE METABOLIC PANE [place] 08-12-2024 Albumin [Mass/Vol] 2.9 g/dL Low 3.5-5.0 [facility] Comment on above: Performed By: #### L [id number] ####Assembly Machine Tender: MARY SOTELO ([id number])[facility] ([facility])[address] [place] [address] ALP [Catalytic activity/Vol] 52 U/L Normal 38-126 [facility] Comment on above: Performed By: #### L [id number] ####Assembly Machine Tender: MARY SOTELO ([id number])[facility] ([facility])[address] [place] [address] ALT [Catalytic activity/Vol] 13 U/L Normal 0-34 [facility] Comment on above: Performed By: #### L AB17 ####Assembly Machine Tender: MARY SOTELO ([id number])[facility] [place] [address] Anion gap [Moles/Vol] 7 mmol/L Normal 3-13 [facility] Comment on above: Performed By: #### L AB17 ####Assembly Machine Tender: MARY SOTELO ([id number])[facility] ([facility])[address] [place] [address] AST [Catalytic activity/Vol] 18 U/L Normal 15-46 [facility] Comment on above: Performed By: #### L AB17 ####Assembly Machine Tender: MARY SOTELO ([id number])[facility] ([facility])[address] [place] [address] Bilirubin [Mass/Vol] 0.9 mg/dL Normal 0.2-1.3 [facility] Comment on above: Performed By: #### L AB17 ####Assembly Machine Tender: MARY SOTELO ([id number])[facility] ([facility])[address] [place] [address] Calcium [Mass/Vol] 6.9 mg/dL Low 8.4-10.4 [facility] Comment on above: Performed By: #### L AB17 ####Assembly Machine Tender: MARY SOTELO ([id number])[facility] ([facility])[address] [place] [address] [place] Chloride [Moles/Vol] 100 mmol/L Normal 98-107 [facility] Comment on above: Performed By: #### L AB17 ####Assembly Machine Tender: MARY SOTELO ([id number])[facility] ([facility])[address] [place] [address] [place] CO2 [Moles/Vol] 22 mmol/L Normal 22-30 [facility] Comment on above: Performed By: #### L AB17 ####Assembly Machine Tender: MARY SOTELO ([id number])[facility] [place] [address] [place] Creatinine [Mass/Vol] 2.56 mg/dL High 0.52-1.04 [facility] Comment on above: Performed By: #### L AB17 ####Assembly Machine Tender: MARY SOTELO ([id number])[facility])[address] [place] [address] GLOMERULAR FILTRATION RATE ML/MIN/1.73 SQ M.PREDICTED 20.4 mL/min/1.73m*2 Low >60.0 [facility] Comment on above: Result Comment: Calc ulation based on the Chronic Kidney Disease Epidemiology Collaboration (CKD-EPI) equation refit without adjustment for race Performed By: #### L AB17 ####Assembly Machine Tender: MARY SOTELO ([id number])[facility])[address] [place] [address] Glucose [Mass/Vol] 220 mg/dL High 70-100 [facility] Comment on above: Performed By: #### L AB17 ####Assembly Machine Tender: MARY SOTELO ([id number])[facility] ([facility])[address] [place] [address] Potassium [Moles/Vol] 4.2 mmol/L Normal 3.5-5.1 [facility] Comment on above: Performed By: #### L AB17 ####Assembly Machine Tender: MARY SOTELO ([id number])[facility] ([facility])[address] [place] [address] Protein [Mass/Vol] 5.2 g/dL Low 6.3-8.2 [facility] Comment on above: Performed By: #### L AB17 ####Assembly Machine Tender: MARY SOTELO ([id number])[facility] ([facility])[address] [place] [address] [place] Sodium [Moles/Vol] 130 mmol/L Low 135-145 [facility] Comment on above: Performed By: #### L AB17 ####Assembly Machine Tender: MARY SOTELO ([id number])[facility] ([facility])[address] [place] [address] [place] Urea nitrogen [Mass/Vol] 20 mg/dL High 7-17 [facility] Comment on above: Performed By: #### L AB17 ####Assembly Machine Tender: MARY SOTELO ([id number])[facility] [place] [address] CT HEAD NECK ANGIO W AND WO IV CONTRASTon 08-12-2024 CT HEAD NECK ANGIO W AND WO IV CONTRAST Normal [facility] CT HEAD WO IV CONTRASTon CT HEAD WO IV CONTRAST Normal [facility] CT HEAD WO IV CONTRAST Normal [facility] CT Head WO contraston [address] [...] MD Electronically Signed Date/Time: 08/12/2024 8:18 AM [facility] [employer] [facility] 1960 [id number] Exam Date/Time: 08/11/2024 15:35 Procedure: CT HEAD [...] orbits and extracranial soft tissues are unremarkable. [facility] Reece Mckinley MD - 08/12/2024 Patient Name: [facility] DEN[facility] 1960 [id number] Exam Date/Time: 08/11/2024 15:35 Procedure: CT HEAD [...] Electronically Signed Date/Time: 08/12/2024 8:18 AM ED[facility] Head WO contrastOrdered B y: Reece Mckinley on 08-12-2024 [employer] Work Phone: CT PERFUSIONon 08-12-2024 CT PERFUSION Normal [facility] Consulton 08-12-2024 Consult Normal [facility] ECG 12-LEADon 08-12-2024 ECG 12-LEAD IMPRESSION: Sinus rhythm Consider left ventricular hypertrophy Electronically Signed On 08-12-2024 18:40:59 EDT by Fabrizio Guillory Normal [facility] ED Nursing Noteon 08-12-2024 ED Nursing Note Report given to Jordon Jorge. Margret Doan RN 08/12/24 1634 Normal [facility] ED Nursing Note ICU at bedside. Clari Bronson RN 08/12/24 1517 Normal [facility] ED Provider Noteon 4 ED Provider Note Normal [facility] FERRITINon 08-12-2024 Ferritin [Mass/Vol] 231 ng/mL Normal 11-264 [facility] Comment on above: Performed By: #### L AB69, LAB68, CLC119, LAB67 ####Assembly Machine Tender: MARY SOTELO ([id number])[facility] [place] [address] FOLATEon 08-12-2024 FOLATE RESULT 10.8 ng/mL Normal >=2.9 [facility] Comment on above: Performed By: #### L AB69, LAB68, MFK134, LAB67 ####Assembly Machine Tender: MARY STOELO ([id number])[facility] [place] [address] IDNon 08-12-2024 IDN Normal [facility] IRON AND TIBCon 08-12-2024 IRON BINDING CAPACITY 158 ug/dL Low 261-497 [facility] Comment on above: Performed By: #### L [id number] ####Assembly Machine Tender: MARY SOTELO ([id number])[facility] [place] [address] IRON SATURATION 45 % Normal 15-50 [facility] Comment on above: Performed By: #### L [id number] ####Assembly Machine Tender: MARY SOTELO ([id number])[facility] ([facility])[address] [place] [address] IRON, TOTAL 71 ug/dL Normal 37-170 [facility] Comment on above: Performed By: #### L [id number] ####Assembly Machine Tender: MARY SOTELO ([id number])[facility])[address] [place] [address] LACTIC ACID WITH REFLEXon Lactate [Moles/Vol] 1.6 mmol/L Normal 0.7-2.0 [facility] Comment on above: Performed By: #### L [id number] ####Assembly Machine Tender: MARY SOTELO ([id number])[facility])[address] [place] [address] NT PRO BNPon 08-12-2024 NT PRO BNP >15351 High <125 [facility] Comment on above: Performed By: #### L [id number], LAB15, [id number] ####Assembly Machine Tender: MARY SOTELO ([id number])[facility])[address] [place] [address] Nursing Noteon 08-12-2024 Nursing Note Normal [facility] RETICULOCYTESon 08-12-2024 Reticulocytes/100 RBC (Bld) 2.41 % Normal [facility] Comment on above: Result Comment: Newb orn < 5%Adults 0.4 - 2.0% Performed By: #### L AB296, [id number] ####Assembly Machine Tender: MARY SOTELO ([id number])[facility])[address] [place] [address] [place] TROPONIN Ion 08-12-2024 Troponin I.cardiac [Mass/Vol] 0.052 ng/mL High <0.034 [facility] Comment on above: Result Comment: BINA Olivarez COMMENTS:Patients with high levels of Biotin oral intake (ie >5 mg/day) may have falsely decreased Troponin levels. Performed By: #### L AB69, LAB68, GJJ070, LAB67 ####Assembly Machine Tender: MARY SOTELO ([id number])[facility])[address] [place] [address] [place] Troponin I.cardiac [Mass/Vol] 0.046 ng/mL High <0.034 [facility] Comment on above: Result Comment: BINA Olivarez COMMENTS:Patients with high levels of Biotin oral intake (ie >5 mg/day) may have falsely decreased Troponin levels. Performed By: #### L [id number] ####Assembly Machine Tender: MARY SOTELO ([id number])[facility])[address] [place] [address] TROPONIN, WITH SERIAL REFLEX on 08-12-2024 Troponin I.cardiac [Mass/Vol] 0.046 ng/mL High <0.034 [facility] Comment on above: Result Comment: BINA Olivarez COMMENTS:Patients with high levels of Biotin oral intake (ie >5 mg/day) may have falsely decreased Troponin levels. Performed By: #### L [id number], [id number], [id number] ####Assembly Machine Tender: MARY SOTELO ([id number])[facility])[address] [place] [address] VITAMIN B12on 08-12-2024 Cobalamin (Vitamin B12) [Mass/Vol] 932 pg/mL High 239-931 [facility] Comment on above: Performed By: #### L [id number], LAB68, [id number], LAB67 ####Assembly Machine Tender: MARY SOTELO ([id number])[facility])[address] [place] [address] CARECOORDon 08-11-2024 [place] Patient Choice Patient Name: SANDY DENG Date of : 1960 Normal [facility] CT Head WO contraston 2023 Radiology Study observation (narrative) [facility] Progress Noteon 08-11-2024 Progress Note Normal [facility] BASIC METABOLIC PANELon 0 Anion gap [Moles/Vol] 2 mmol/L Low 3-13 [facility] Comment on above: Performed By: #### L [id number], [id number], LAB15 ####Assembly Machine Tender: MARY SOTELO ([id number])[facility])[address] [place] [address] Calcium [Mass/Vol] 6.6 mg/dL Low 8.4-10.4 [facility] Comment on above: Performed By: #### L AB113, [id number], LAB15 ####Assembly Machine Tender: MARY SOTELO ([id number])[facility])[address] [place] [address] Chloride [Moles/Vol] 102 mmol/L Normal 98-107 [facility] Comment on above: Performed By: #### L AB113, [id number], LAB15 ####Assembly Machine Tender: MARY SOTELO ([id number])[facility] ([facility])[address] [place] [address] CO2 [Moles/Vol] 33 mmol/L High 22-30 [facility] Comment on above: Performed By: #### L AB113, [id number], LAB15 ####Assembly Machine Tender: MARY SOTELO ([id number])[facility])[address] [place] [address] Creatinine [Mass/Vol] 2.85 mg/dL High 0.52-1.04 [facility] Comment on above: Performed By: #### L AB113, [id number], LAB15 ####Assembly Machine Tender: MARY SOTELO ([id number])[facility])[address] [place] [address] GLOMERULAR FILTRATION RATE ML/MIN/1.73 SQ M.PREDICTED 17.9 mL/min/1.73m*2 Low >60.0 [facility] Comment on above: Result Comment: Calc ulation based on the Chronic Kidney Disease Epidemiology Collaboration (CKD-EPI) equation refit without adjustment for race Performed By: #### L AB113, [id number], LAB15 ####Assembly Machine Tender: MARY SOTELO ([id number])[facility] ([facility])[address] [place] [address] [place] Glucose [Mass/Vol] 110 mg/dL High 70-100 [facility] Comment on above: Performed By: #### L AB113, [id number], LAB15 ####Assembly Machine Tender: MARY [id number])[facility])[address] [place] [address] Potassium [Moles/Vol] 4.2 mmol/L Normal 3.5-5.1 [facility] Comment on above: Performed By: #### L AB113, [id number], LAB15 ####Assembly Machine Tender: MARY SOTELO ([id number])[facility] ([facility])[address] [place] [address] Sodium [Moles/Vol] 138 mmol/L Normal 135-145 [facility] Comment on above: Performed By: #### L AB113, [id number], LAB15 ####Assembly Machine Tender: MARY SOTELO ([id number])[facility] [place] [address] Urea nitrogen [Mass/Vol] 25 mg/dL High 7-17 [facility] Comment on above: Performed By: #### L AB113, [id number], LAB15 ####Assembly Machine Tender: MARY SOTELO ([id number])[facility] [place] [address] Basic metabolic 1998 panelon 08-10-2024 Anion gap [Moles/Vol] 2 mmol/L Low 3 - 13 mmol/L [facility] Calcium [Mass/Vol] 6.6 mg/dL Low 8.4 - 10. 4 mg/dL [facility] Chloride [Moles/Vol] 102 mmol/L 98 - 10 7 mmol/L [facility] CO2 [Moles/Vol] 33 mmol/L High 22 - 30 mmol/L [facility] Creatinine [Mass/Vol] 2.85 mg/dL High 0.52 - 1.04 mg/dL [facility] GFR/1.73 sq M.predicted (S/P/Bld) [Vol rate/Area] 17.9 mL/min Low - PINF [facility] Glucose [Mass/Vol] 110 mg/dL High 70 - 100 mg/dL [facility] Interpretation and review of laboratory results Abnormal [facility] Potassium [Moles/Vol] 4.2 mmol/L 3.5 - 5.1 mmol/L [facility] Sodium [Moles/Vol] 138 mmol/L 135 - 145 mmol/L [facility] Urea nitrogen [Mass/Vol] 25 mg/dL High 7 - 17 mg/dL [facility] C3, BLOODon 08-10-2024 C3, BLOOD 64 mg/dL Low 88-165 [facility] Comment on above: Performed By: #### L [id number], [id number] ####Assembly Machine Tender: MARLENY GUZMÁN ([id number])[facility] ([facility])[address] C4 COMPLEMENTon 08-10-2024 C4, BLOOD 13 mg/dL Low 14-44 [facility] Comment on above: Performed By: #### L AB151, [id number] ####Assembly Machine Tender: MARLENY GUZMÁN ([id number])[facility] ([facility])[address] CAR[place]OORDon 08-10-2024 [place] Normal [facility] [place] Normal [facility] set v ia cot through [facility], RN, [employer], facility, Pt, and Pt's Jose notified. Normal [facility] per TCC request. [facility] mar today . Med team notified of auth and need discharge orders . Done. SW to arrange transport today . [facility] CBC W Auto Differential pane l (Bld)on 08-10-2024 Basophils (Bld) [#/Vol] 0.0 10*3/uL 0.0 - 0.2 10*3/uL [facility] Basophils/100 WBC (Bld) 0.2 % 0.0 - 2.0 % [facility] Eosinophils (Bld) [#/Vol] 0.3 10*3/uL 0.0 - 0.5 10*3/uL [facility] Eosinophils/100 WBC (Bld) 5.2 % 0.0 - 6.0 % [facility] Erythrocyte distribution width (RBC) [Ratio] 17.2 % High 11.5 - 15.0 % [facility] Hematocrit (Bld) [Volume fraction] 26.2 % Low 35.0 - 47.0 % [facility] Hemoglobin (Bld) [Mass/Vol] 7.8 g/dL Low 11.7 - 16.0 g/dL [facility] Immature granulocytes (Bld) [#/Vol] 0.1 10*3/uL High NINF - 0.1 10*3/uL [facility] Immature granulocytes/100 WBC (Bld) 0.8 % 0.0 - 2.0 % [facility] Interpretation and review of laboratory results Abnormal [facility] IPF 4 [facility] Lymphocytes (Bld) [#/Vol] 1.0 10*3/uL 1.0 - 4.3 10*3/uL [facility] Lymphocytes/100 WBC (Bld) 16.2 % 15.0 - 45.0 % [facility] MCH (RBC) [Entitic mass] 28.5 pg 26.0 - 34.0 pg [facility] MCHC (RBC) [Mass/Vol] 29.8 % Low 30.5 - 36.0 % [facility] MCV (RBC) [Entitic vol] 95.6 fL 77.0 - 99.0 fL [facility] Monocytes (Bld) [#/Vol] 0.4 10*3/uL 0.0 - 0.9 10*3/uL [facility] Monocytes/100 WBC (Bld) 6.2 % 5.0 - 13.0 % [facility] Neutrophils (Bld) [#/Vol] 4.3 10*3/uL 1.8 - 7.5 10*3/uL [facility] Neutrophils/100 WBC (Bld) 71.4 % 38.0 - 82.0 % [facility] Nucleated RBC/100 WBC (Bld) [Ratio] 0.0 % [facility] Platelet mean volume (Bld) [Entitic vol] 10.7 fL 9.0 - 12.7 fL [facility] Platelets (Bld) [#/Vol] 95 10*3/uL Low 140 - 440 10*3/uL [facility] RBC (Bld) [#/Vol] 2.74 10*6/uL Low 3.80 - 5.2 0 10*6/uL [facility] WBC (Bld) [#/Vol] 6.0 10*3/uL 3.6 - 10.7 10*3/uL [facility] CBC WITH AUTO DIFFERENTIALon 08-10-2024 Basophils (Bld) [#/Vol] 0.0 10*3/uL Normal 0.0-0.2 [facility] Comment on above: Performed By: #### L [id number] ####Assembly Machine Tender: MARY SOTELO ([id number])[facility])[address] [place] [address] Basophils/100 WBC (Bld) 0.2 % Normal 0.0-2.0 [facility] Comment on above: Performed By: #### L [id number] ####Assembly Machine Tender: MARY SOTELO ([id number])[facility])[address] [place] [address] Eosinophils (Bld) [#/Vol] 0.3 10*3/uL Normal 0.0-0.5 [facility] Comment on above: Performed By: #### L [id number] ####Assembly Machine Tender: MARY SOTELO ([id number])[facility])[address] [place] [address] Eosinophils/100 WBC (Bld) 5.2 % Normal 0.0-6.0 [facility] Comment on above: Performed By: #### L [id number] ####Assembly Machine Tender: MARY SOTELO ([id number])[facility])[address] [place] [address] Erythrocyte distribution width (RBC) [Ratio] 17.2 % High 11.5-15.0 [facility] Comment on above: Performed By: #### L [id number] ####Assembly Machine Tender: MARY SOTELO ([id number])[facility])[address] [place] [address] Hematocrit (Bld) [Volume fraction] 26.2 % Low 35.0-47.0 [facility] Comment on above: Performed By: #### L [id number] ####Assembly Machine Tender: MARY SOTELO ([id number])[facility])[address] [place] [address] Hemoglobin (Bld) [Mass/Vol] 7.8 g/dL Low 11.7-16.0 [facility] Comment on above: Performed By: #### L [id number] ####Assembly Machine Tender: MARY SOTELO ([id number])[facility] ([facility])[address] [place] [address] IMMATURE GRANS % 0.8 % Normal 0.0-2.0 [facility] Comment on above: Performed By: #### L [id number] ####Assembly Machine Tender: MARY SOTELO ([id number])[facility])[address] [place] [address] IMMATURE GRANS ABSOLUTE 0.1 10*3/uL High <0.1 [facility] Comment on above: Performed By: #### L [id number] ####Assembly Machine Tender: MARY SOTELO ([id number])[facility])[address] [place] [address] [place] IPF 4 Normal [facility] Comment on above: Performed By: #### L [id number] ####Assembly Machine Tender: MARY SOTELO ([id number])[facility])[address] [place] [address] [place] Lymphocytes (Bld) [#/Vol] 1.0 10*3/uL Normal 1.0-4.3 [facility] Comment on above: Performed By: #### L [id number] ####Assembly Machine Tender: MARY SOTELO ([id number])[facility])[address] [place] [address] [place] Lymphocytes/100 WBC (Bld) 16.2 % Normal 15.0-45.0 [facility] Comment on above: Performed By: #### L [id number] ####Assembly Machine Tender: MARY SOTELO ([id number])[facility] ([facility])[address] [place] [address] MCH (RBC) [Entitic mass] 28.5 pg Normal 26.0-34.0 [facility] Comment on above: Performed By: #### L [id number] ####Assembly Machine Tender: MARY OSTELO ([id number])[facility])[address] [place] [address] MCHC 29.8 % Low 30.5-36.0 [facility] Comment on above: Performed By: #### L [id number] ####Assembly Machine Tender: MARY SOTELO ([id number])[facility])[address] [place] [address] MCV (RBC) [Entitic vol] 95.6 fL Normal 77.0-99.0 [facility] Comment on above: Performed By: #### L [id number] ####Assembly Machine Tender: MARY SOTELO ([id number])[facility])[address] [place] [address] Monocytes (Bld) [#/Vol] 0.4 10*3/uL Normal 0.0-0.9 [facility] Comment on above: Performed By: #### L [id number] ####Assembly Machine Tender: MARY SOTELO ([id number])[facility])[address] [place] [address] Monocytes/100 WBC (Bld) 6.2 % Normal 5.0-13.0 [facility] Comment on above: Performed By: #### L [id number] ####Assembly Machine Tender: MARY SOTELO ([id number])[facility])[address] [place] [address] NEUTROPHILS ABSOLUTE 4.3 10*3/uL Normal 1.8-7.5 [facility] Comment on above: Performed By: #### L [id number] ####Assembly Machine Tender: MARY SOTELO ([id number])[facility])[address] [place] [address] Neutrophils/100 WBC (Bld) 71.4 % Normal 38.0-82.0 [facility] Comment on above: Performed By: #### L [id number] ####Assembly Machine Tender: MARY SOTELO ([id number])[facility] ([facility])[address] [place] [address] NRBC 0.0 /100 WBCs Normal 0.0-2.0 [facility] Comment on above: Performed By: #### L [id number] ####Assembly Machine Tender: MARY SOTELO ([id number])[facility] ([facility])[address] [place] [address] Platelet mean volume (Bld) [Entitic vol] 10.7 fL Normal 9.0-12.7 [facility] Comment on above: Performed By: #### L [id number] ####Assembly Machine Tender: MARY SOTELO ([id number])[facility] ([facility])[address] [place] [address] Platelets (Bld) [#/Vol] 95 10*3/uL Low 140-440 [facility] Comment on above: Performed By: #### L [id number] ####Assembly Machine Tender: MARY SOTELO ([id number])[facility] ([facility])[address] [place] [address] RBC (Bld) [#/Vol] 2.74 10*6/uL Low 3.80-5.20 [facility] Comment on above: Performed By: #### L [id number] ####Assembly Machine Tender: MARY SOTELO ([id number])[facility] ([facility])[address] [place] [address] WBC (Bld) [#/Vol] 6.0 10*3/uL Normal 3.6-10.7 [facility] Comment on above: Performed By: #### L [id number] ####Assembly Machine Tender: MARY SOTELO ([id number])[facility] ([facility])[address] [place] [address] GLUCOSE, RANDOMon 08-10-2024 Glucose [Mass/Vol] 61 mg/dL Low 70-100 [facility] Comment on above: Performed By: #### L [id number] ####Assembly Machine Tender: MARY SOTELO ([id number])[facility] ([facility])[address] Glucose (Bld) [Mass/Vol]on 1 Glucose [Mass/Vol] 61 mg/dL Low 70 - 100 mg/dL [facility] Interpretation and review of laboratory results Abnormal [facility] IDNon 08-10-2024 IDN Normal [facility] Laboratory - Chemistry and C hemistry - challengeon 08-10-2024 Glucose [Mass/Vol] 119 mg/dL High 70 - 100 mg/dL [facility] Glucose [Mass/Vol] 109 mg/dL High 70 - 100 mg/dL [facility] Glucose [Mass/Vol] 102 mg/dL High 70 - 100 mg/dL [facility] Glucose [Mass/Vol] 96 mg/dL 70 - 100 mg/dL [facility] Glucose [Mass/Vol] 103 mg/dL High 70 - 100 mg/dL [facility] Glucose [Mass/Vol] 65 mg/dL Low 70 - 100 mg/dL [facility] Magnesium [Mass/Vol] 1.8 mg/dL 1.6 - 2 .3 mg/dL [facility] Laboratory - Hematology and Cell countson 08-10-2024 Complement C3 [Mass/Vol] 64 mg/dL Low 88 - 165 mg/dL [facility] Complement C4 [Mass/Vol] 13 mg/dL Low 14 - 44 mg/dL [facility] MAGNESIUMon 08-10-2024 Magnesium [Mass/Vol] 1.8 mg/dL Normal 1.6-2.3 [facility] Comment on above: Performed By: #### L AB113, [id number], LAB15 ####Assembly Machine Tender: MARY SOTELO ([id number])[facility] [place] [address] [place] No Panel Informationon 08-10 Interpretation and review of laboratory results Abnormal [facility] Interpretation and review of laboratory results Abnormal [facility] Interpretation and review of laboratory results Abnormal [facility] Interpretation and review of laboratory results Abnormal [facility] Interpretation and review of laboratory results Abnormal [facility] Interpretation and review of laboratory results Normal [facility] Interpretation and review of laboratory results Abnormal [facility] Interpretation and review of laboratory results Abnormal [facility] Interpretation and review of laboratory results Normal [facility] Nursing Noteon 08-10-2024 Nursing Note Report called to delores Syed at [facility]. This RN verified with Dr. Espana that pt is leaving with johnson catheter. Normal [facility] Nursing Note Normal [facility] PHOSPHORUSon 08-10-2024 Phosphate [Mass/Vol] 4.5 mg/dL Normal 2.5-4.5 [facility] Comment on above: Performed By: #### L AB113, [id number], LAB15 ####Assembly Machine Tender: MARY SOTELO ([id number])[facility] [place] [address] [place] Phosphate [Moles/Vol]on Phosphate [Mass/Vol] 4.5 mg/dL 2.5 - 4 .5 mg/dL [facility] Progress Noteon 08-10-2024 Progress Note Normal [facility] Progress Note Normal [facility] BASIC METABOLIC PANELon Anion gap [Moles/Vol] 1 mmol/L Low 3-13 [facility] Comment on above: Performed By: #### L AB113, [id number], LAB15 ####Assembly Machine Tender: MARY SOTELO ([id number])[facility] ([facility])[address] [place] [address] [place] Calcium [Mass/Vol] 6.9 mg/dL Low 8.4-10.4 [facility] Comment on above: Performed By: #### L AB113, [id number], LAB15 ####Assembly Machine Tender: MARY SOTELO ([id number])[facility] ([facility])[address] [place] [address] [place] Chloride [Moles/Vol] 105 mmol/L Normal 98-107 [facility] Comment on above: Performed By: #### L AB113, [id number], LAB15 ####Assembly Machine Tender: MARY SOTELO ([id number])[facility] [place] [address] CO2 [Moles/Vol] 30 mmol/L Normal 22-30 [facility] Comment on above: Performed By: #### L AB113, [id number], LAB15 ####Assembly Machine Tender: MARY SOTELO ([id number])[facility] [place] [address] Creatinine [Mass/Vol] 2.30 mg/dL High 0.52-1.04 [facility] Comment on above: Performed By: #### L AB113, [id number], LAB15 ####Assembly Machine Tender: MARY SOTELO ([id number])[facility] ([facility])[address] [place] [address] GLOMERULAR FILTRATION RATE ML/MIN/1.73 SQ M.PREDICTED 23.2 mL/min/1.73m*2 Low >60.0 [facility] Comment on above: Result Comment: Calc ulation based on the Chronic Kidney Disease Epidemiology Collaboration (CKD-EPI) equation refit without adjustment for race Performed By: #### L AB113, [id number], LAB15 ####Assembly Machine Tender: MARY SOTELO ([id number])[facility] ([facility])[address] [place] [address] Glucose [Mass/Vol] 69 mg/dL Low 70-100 [facility] Comment on above: Performed By: #### L AB113, [id number], LAB15 ####Assembly Machine Tender: MARY SOTELO ([id number])[facility])[address] [place] [address] Potassium [Moles/Vol] 4.3 mmol/L Normal 3.5-5.1 [facility] Comment on above: Performed By: #### L AB113, [id number], LAB15 ####Assembly Machine Tender: MARY SOTELO ([id number])[facility] [place] [address] Sodium [Moles/Vol] 136 mmol/L Normal 135-145 [facility] Comment on above: Performed By: #### L AB113, [id number], LAB15 ####Assembly Machine Tender: MARY SOTELO ([id number])[facility] ([facility])[address] [place] [address] Urea nitrogen [Mass/Vol] 22 mg/dL High 7-17 [facility] Comment on above: Performed By: #### L AB113, [id number], LAB15 ####Assembly Machine Tender: MARY SOTELO ([id number])[facility] [place] [address] Basic metabolic 1998 panelon 08-09-2024 Anion gap [Moles/Vol] 1 mmol/L Low 3 - 13 mmol/L [facility] Calcium [Mass/Vol] 6.9 mg/dL Low 8.4 - 10. 4 mg/dL [facility] Chloride [Moles/Vol] 105 mmol/L 98 - 10 7 mmol/L [facility] CO2 [Moles/Vol] 30 mmol/L 22 - 30 mmol/L [facility] Creatinine [Mass/Vol] 2.30 mg/dL High 0.52 - 1.04 mg/dL [facility] GFR/1.73 sq M.predicted (S/P/Bld) [Vol rate/Area] 23.2 mL/min Low - PINF [facility] Glucose [Mass/Vol] 69 mg/dL Low 70 - 100 mg/dL [facility] Interpretation and review of laboratory results Abnormal [facility] Potassium [Moles/Vol] 4.3 mmol/L 3.5 - 5.1 mmol/L [facility] Sodium [Moles/Vol] 136 mmol/L 135 - 145 mmol/L [facility] Urea nitrogen [Mass/Vol] 22 mg/dL High 7 - 17 mg/dL [facility] CARECOORDon 08-09-2024 [place] Normal [facility] [place] Normal [facility] CBC W Auto Differential pane l (Bld)on 08-09-2024 Basophils (Bld) [#/Vol] 0.0 10*3/uL 0.0 - 0.2 10*3/uL [facility] Basophils/100 WBC (Bld) 0.4 % 0.0 - 2.0 % [facility] Eosinophils (Bld) [#/Vol] 0.3 10*3/uL 0.0 - 0.5 10*3/uL [facility] Eosinophils/100 WBC (Bld) 4.3 % 0.0 - 6.0 % [facility] Erythrocyte distribution width (RBC) [Ratio] 17.2 % High 11.5 - 15.0 % [facility] Hematocrit (Bld) [Volume fraction] 26.6 % Low 35.0 - 47.0 % [facility] Hemoglobin (Bld) [Mass/Vol] 8.1 g/dL Low 11.7 - 16.0 g/dL [facility] [employer] Immature granulocytes (Bld) [#/Vol] 0.1 10*3/uL High NINF - 0.1 10*3/uL [facility] Immature granulocytes/100 WBC (Bld) 0.8 % 0.0 - 2.0 % [facility] Interpretation and review of laboratory results Abnormal [facility] IPF 3 [facility] Lymphocytes (Bld) [#/Vol] 1.3 10*3/uL 1.0 - 4.3 10*3/uL [facility] Lymphocytes/100 WBC (Bld) 17.0 % 15.0 - 45.0 % [facility] MCH (RBC) [Entitic mass] 28.8 pg 26.0 - 34.0 pg [facility] MCHC (RBC) [Mass/Vol] 30.5 % 30.5 - 36.0 % [facility] MCV (RBC) [Entitic vol] 94.7 fL 77.0 - 99.0 fL [facility] Monocytes (Bld) [#/Vol] 0.5 10*3/uL 0.0 - 0.9 10*3/uL [facility] Monocytes/100 WBC (Bld) 6.1 % 5.0 - 13.0 % [facility] Neutrophils (Bld) [#/Vol] 5.5 10*3/uL 1.8 - 7.5 10*3/uL [facility] Neutrophils/100 WBC (Bld) 71.4 % 38.0 - 82.0 % [facility] [employer] Nucleated RBC/100 WBC (Bld) [Ratio] 0.0 % [facility] Platelet mean volume (Bld) [Entitic vol] 10.5 fL 9.0 - 12.7 fL [facility] Platelets (Bld) [#/Vol] 108 10*3/uL Low 140 - 440 10*3/uL [facility] RBC (Bld) [#/Vol] 2.81 10*6/uL Low 3.80 - 5.2 0 10*6/uL [facility] WBC (Bld) [#/Vol] 7.7 10*3/uL 3.6 - 10.7 10*3/uL [facility] CBC WITH AUTO DIFFERENTIALon 08-09-2024 Basophils (Bld) [#/Vol] 0.0 10*3/uL Normal 0.0-0.2 [facility] Comment on above: Performed By: #### L [id number] ####Assembly Machine Tender: MARY SOTELO ([id number])[facility])[address] [place] [address] Basophils/100 WBC (Bld) 0.4 % Normal 0.0-2.0 [facility] Comment on above: Performed By: #### L [id number] ####Assembly Machine Tender: MARY SOTELO ([id number])[facility])[address] [place] [address] Eosinophils (Bld) [#/Vol] 0.3 10*3/uL Normal 0.0-0.5 [facility] Comment on above: Performed By: #### L [id number] ####Assembly Machine Tender: MARY SOTELO ([id number])[facility])[address] [place] [address] Eosinophils/100 WBC (Bld) 4.3 % Normal 0.0-6.0 [facility] Comment on above: Performed By: #### L [id number] ####Assembly Machine Tender: MARY SOTELO ([id number])[facility])[address] [place] [address] Erythrocyte distribution width (RBC) [Ratio] 17.2 % High 11.5-15.0 [facility] Comment on above: Performed By: #### L [id number] ####Assembly Machine Tender: MARY SOTELO ([id number])[facility])[address] [place] [address] Hematocrit (Bld) [Volume fraction] 26.6 % Low 35.0-47.0 [facility] Comment on above: Performed By: #### L [id number] ####Assembly Machine Tender: MARY SOTELO ([id number])[facility])[address] [place] [address] Hemoglobin (Bld) [Mass/Vol] 8.1 g/dL Low 11.7-16.0 [facility] Comment on above: Performed By: #### L [id number] ####Assembly Machine Tender: MARY SOTELO ([id number])[facility])[address] [place] [address] IMMATURE GRANS % 0.8 % Normal 0.0-2.0 [facility] Comment on above: Performed By: #### L [id number] ####Assembly Machine Tender: MARY SOTELO ([id number])[facility])[address] [place] [address] IMMATURE GRANS ABSOLUTE 0.1 10*3/uL High <0.1 [facility] Comment on above: Performed By: #### L [id number] ####Assembly Machine Tender: MARY SOTELO ([id number])[facility])[address] [place] [address] IPF 3 Normal [facility] Comment on above: Performed By: #### L [id number] ####Assembly Machine Tender: MARY SOTELO ([id number])[facility])[address] [place] [address] Lymphocytes (Bld) [#/Vol] 1.3 10*3/uL Normal 1.0-4.3 [facility] Comment on above: Performed By: #### L [id number] ####Assembly Machine Tender: MARY SOTELO ([id number])[facility])[address] [place] [address] Lymphocytes/100 WBC (Bld) 17.0 % Normal 15.0-45.0 [facility] Comment on above: Performed By: #### L [id number] ####Assembly Machine Tender: MARY SOTELO ([id number])[facility])[address] [place] [address] MCH (RBC) [Entitic mass] 28.8 pg Normal 26.0-34.0 [facility] Comment on above: Performed By: #### L [id number] ####Assembly Machine Tender: MARY SOTELO ([id number])[facility])[address] [place] [address] MCHC 30.5 % Normal 30.5-36.0 [facility] Comment on above: Performed By: #### L [id number] ####Assembly Machine Tender: MARY SOTELO ([id number])[facility])[address] [place] [address] MCV (RBC) [Entitic vol] 94.7 fL Normal 77.0-99.0 [facility] Comment on above: Performed By: #### L [id number] ####Assembly Machine Tender: MARY SOTELO ([id number])[facility])[address] [place] [address] Monocytes (Bld) [#/Vol] 0.5 10*3/uL Normal 0.0-0.9 [facility] Comment on above: Performed By: #### L [id number] ####Assembly Machine Tender: MARY SOTELO ([id number])[facility] ([facility])[address] [place] [address] Monocytes/100 WBC (Bld) 6.1 % Normal 5.0-13.0 [facility] Comment on above: Performed By: #### L [id number] ####Assembly Machine Tender: MARY SOTELO ([id number])[facility])[address] [place] [address] NEUTROPHILS ABSOLUTE 5.5 10*3/uL Normal 1.8-7.5 [facility] Comment on above: Performed By: #### L [id number] ####Assembly Machine Tender: MARY SOTELO ([id number])[facility] ([facility])[address] [place] [address] Neutrophils/100 WBC (Bld) 71.4 % Normal 38.0-82.0 [facility] Comment on above: Performed By: #### L [id number] ####Assembly Machine Tender: MARY SOTELO ([id number])[facility] ([facility])[address] [place] [address] NRBC 0.0 /100 WBCs Normal 0.0-2.0 [facility] Comment on above: Performed By: #### L [id number] ####Assembly Machine Tender: MARY SOTELO ([id number])[facility])[address] [place] [address] Platelet mean volume (Bld) [Entitic vol] 10.5 fL Normal 9.0-12.7 [facility] Comment on above: Performed By: #### L [id number] ####Assembly Machine Tender: MARY SOTELO ([id number])[facility] ([facility])[address] [place] [address] Platelets (Bld) [#/Vol] 108 10*3/uL Low 140-440 [facility] Comment on above: Performed By: #### L [id number] ####Assembly Machine Tender: MARY SOTELO ([id number])[facility])[address] [place] [address] RBC (Bld) [#/Vol] 2.81 10*6/uL Low 3.80-5.20 [facility] Comment on above: Performed By: #### L [id number] ####Assembly Machine Tender: MARY SOTELO ([id number])[facility])[address] [place] [address] WBC (Bld) [#/Vol] 7.7 10*3/uL Normal 3.6-10.7 [facility] Comment on above: Performed By: #### L [id number] ####Assembly Machine Tender: MARY SOTELO ([id number])[facility] ([facility])[address] [place] [address] COMPLETE URINALYSISon 2023 BACTERIA (#/HPF) IN URINE Moderate Abnormal Negative [facility] Comment on above: Performed By: #### L [id number] ####Assembly Machine Tender: MARY SOTELO ([id number])[facility] ([facility])[address] [place] [address] BILIRUBIN, TOTAL PRESENCE IN URINE Negative Normal Negative [facility] Comment on above: Performed By: #### L [id number] ####Assembly Machine Tender: MARY SOTELO ([id number])[facility])[address] [place] [address] Clarity (U) Extra Turbid Abnormal Clear [facility] Comment on above: Performed By: #### L [id number] ####Assembly Machine Tender: MARY SOTELO ([id number])[facility])[address] [place] [address] Color (U) Yellow Normal Lt. Yellow [facility] Comment on above: Performed By: #### L [id number] ####Assembly Machine Tender: MARY SOTELO ([id number])[facility])[address] [place] [address] Glucose (U) [Mass/Vol] 50 mg/dL Normal Normal (<70) [facility] Comment on above: Performed By: #### L [id number] ####Assembly Machine Tender: MARY SOTELO ([id number])[facility])[address] [place] [address] HEMOGLOBIN PRESENCE IN URINE >1.0 Abnormal Negative [facility] Comment on above: Performed By: #### L [id number] ####Assembly Machine Tender: MARY SOTELO ([id number])[facility])[address] [place] [address] HYALINE CASTS (#/LPF) IN URINE SEDIMENT BY MICROSCOPY Negative Normal Negative [facility] Comment on above: Performed By: #### L [id number] ####Assembly Machine Tender: MARY SOTELO ([id number])[facility] ([facility])[address] [place] [address] Ketones Ql (U) Negative Normal Negative [facility] Comment on above: Performed By: #### L [id number] ####Assembly Machine Tender: MARY SOTELO ([id number])[facility] ([facility])[address] [place] [address] LEUKOCYTE ESTERASE PRESENCE IN URINE BY TEST STRIP 500 Bere/uL Abnormal Negative [facility] Comment on above: Performed By: #### L [id number] ####Assembly Machine Tender: MARY SOTELO ([id number])[facility])[address] [place] [address] NITRITE PRESENCE IN URINE Negative Normal Negative [facility] Comment on above: Performed By: #### L [id number] ####Assembly Machine Tender: MARY SOTELO ([id number])[facility])[address] [place] [address] pH (U) 5.0 [pH] Normal 5.0-8.0 [facility] Comment on above: Performed By: #### L [id number] ####Assembly Machine Tender: MARY SOTELO ([id number])[facility])[address] [place] [address] Protein (U) [Mass/Vol] 70 mg/dL Abnormal Negative [facility] Comment on above: Performed By: #### L [id number] ####Assembly Machine Tender: MARY SOTELO ([id number])[facility])[address] [place] [address] RBC (#/HPF) IN URINE SEDIMENT >100 Abnormal 0-2 [facility] Comment on above: Performed By: #### L [id number] ####Assembly Machine Tender: MARY SOTELO ([id number])[facility])[address] [place] [address] Specific gravity (U) [Rel density] 1.007 Normal 1.005-1.030 [facility] Comment on above: Performed By: #### L [id number] ####Assembly Machine Tender: MARY SOTELO ([id number])[facility] ([facility])[address] [place] [address] [place] SQUAMOUS EPITHELIAL CELLS (#/HPF) IN URINE SEDIMENT 3-5 Normal 3-5 [facility] Comment on above: Performed By: #### L [id number] ####Assembly Machine Tender: MARY SOTELO ([id number])[facility] ([facility])[address] [place] [address] [place] UROBILINOGEN (MG/DL) IN URINE Normal Normal Normal (0-1) [facility] Comment on above: Performed By: #### L [id number] ####Assembly Machine Tender: MARY SOTELO ([id number])[facility] ([facility])[address] [place] [address] WBC (LEUKOCYTE) (#/HPF) IN URINE SEDIMENT >100 Abnormal 0-5 [facility] Comment on above: Performed By: #### L [id number] ####Assembly Machine Tender: MARY SOTELO ([id number])[facility] ([facility])[address] [place] [address] [place] WBC (LEUKOCYTE) CLUMPS (#/HPF) IN URINE SEDIMENT Many Abnormal Negative [facility] Comment on above: Performed By: #### L [id number] ####Assembly Machine Tender: MARY SOTELO ([id number])[facility] ([facility])[address] [place] [address] [place] YEAST (#/HPF) IN URINE Loaded Abnormal Negative [facility] Comment on above: Performed By: #### L [id number] ####Assembly Machine Tender: MARY SOTELO ([id number])[facility] ([facility])[address] [place] [address] [place] CREATININE, URINE, RANDOMon 08-09-2024 CREATININE, URINE 41.3 mg/dL Normal No Range [facility] Comment on above: Performed By: #### L [id number], [id number] ####Assembly Machine Tender: MARY SOTELO ([id number])[facility] ([facility])[address] [place] [address] [place] Creatinine (U) [Mass/Vol]on 08-09-2024 CREATININE, URINE 41.3 mg/dL No Range [facility] ealt GLUCOSE, RANDOMon 08-09-2024 Glucose [Mass/Vol] 216 mg/dL High 70-100 [facility] Comment on above: Performed By: #### L [id number] ####Assembly Machine Tender: MARY SOTELO ([id number])[facility] ([facility] Glucose (Bld) [Mass/Vol]on 1 Glucose [Mass/Vol] 216 mg/dL High 70 - 100 mg/dL [facility] Interpretation and review of laboratory results Abnormal [facility] IDNon 08-09-2024 IDN Normal [facility] IDN Normal [facility] Laboratory - Chemistry and C hemistry - challengeon 08-09-2024 Glucose [Mass/Vol] 164 mg/dL High 70 - 100 mg/dL [facility] Glucose [Mass/Vol] 264 mg/dL High 70 - 100 mg/dL [facility] Glucose [Mass/Vol] 246 mg/dL High 70 - 100 mg/dL [facility] Glucose [Mass/Vol] 153 mg/dL High 70 - 100 mg/dL [facility] Glucose [Mass/Vol] 144 mg/dL High 70 - 100 mg/dL [facility] Glucose [Mass/Vol] 115 mg/dL High 70 - 100 mg/dL [facility] Glucose [Mass/Vol] mg/dL Low 70 - 100 mg/dL [facility] Glucose [Mass/Vol] 83 mg/dL 70 - 100 mg/dL [facility] Glucose [Mass/Vol] 70 mg/dL 70 - 100 mg/dL [facility] Glucose [Mass/Vol] mg/dL Low 70 - 100 mg/dL [facility] Magnesium [Mass/Vol] 1.8 mg/dL 1.6 - 2 .3 mg/dL [facility] Laboratory - Urinalysison Protein (U) [Mass/Vol] 107 mg/dL High 0 - 12 mg/dL [facility] MAGNESIUMon 08-09-2024 Magnesium [Mass/Vol] 1.8 mg/dL Normal 1.6-2.3 [facility] Comment on above: Performed By: #### L AB113, [id number], LAB15 ####Assembly Machine Tender: MARY SOTELO ([id number])[facility])[address] [place] [address] [place] Magnesium [Mass/Vol]on 08-09 Interpretation and review of laboratory results Normal [facility] No Panel Informationon 08-09 Interpretation and review of laboratory results Abnormal [facility] Interpretation and review of laboratory results Abnormal [facility] Interpretation and review of laboratory results Abnormal [facility] Interpretation and review of laboratory results Abnormal [facility] Interpretation and review of laboratory results Abnormal [facility] Interpretation and review of laboratory results Abnormal [facility] Interpretation and review of laboratory results Abnormal [facility] Interpretation and review of laboratory results Abnormal [facility] Interpretation and review of laboratory results Normal [facility] Interpretation and review of laboratory results Normal [facility] Interpretation and review of laboratory results Abnormal [facility] Nursing Noteon 08-09-2024 Nursing Note Normal [facility] PHOSPHORUSon 08-09-2024 Phosphate [Mass/Vol] 4.1 mg/dL Normal 2.5-4.5 [facility] Comment on above: Performed By: #### L AB113, [id number], LAB15 ####Assembly Machine Tender: MARY SOTELO ([id number])[facility] ([facility])[address] [place] [address] [place] PROTEIN, URINE, RANDOMon Protein (U) [Mass/Vol] 107 mg/dL High 0-12 [facility] Comment on above: Performed By: #### L AB384, [id number] ####Assembly Machine Tender: MARY SOTELO ([id number])[facility] ([facility])[address] [place] [address] [place] Phosphate [Moles/Vol]on Interpretation and review of laboratory results Normal [facility] Phosphate [Mass/Vol] 4.1 mg/dL 2.5 - 4 .5 mg/dL [facility] Progress Noteon 08-09-2024 Progress Note Normal [facility] Normal [facility] Progress Note Normal [facility] Progress [facility] URINE CULTUREon 08-09-2024 Bacteria identified Cx Nom (U) Normal [facility] Comment on above: Performed By: #### L [id number] ####Assembly Machine Tender: MARY SOTELO ([id number])[facility] ([facility])[address] [place] [address] Urinalysis complete panel (U )on 08-09-2024 Bacteria LM.HPF (Urine sed) [#/Area] Moderate Abnormal Negative /HPF [facility] Bilirubin Ql (U) Negative Negative mg/dL [facility] Clarity (U) Extra Turbid Abnormal Clear [facility] h Color (U) Yellow Lt. Yellow [facility] Epithelial cells.squamous LM.HPF (Urine sed) [#/Area] 3-5 [facility] Gl[facility] Ql (U) 50 mg/dL Normal (<70) [facility]th Hemoglobin Ql (U) >1.0 Abnormal Negative mg/dL [facility] Hyaline casts Auto (Urine sed) [#/Area] Negative Negative /LPF [facility] Interpretation and review of laboratory results Abnormal [facility] Ketones (U) [Mass/Vol] Negative Negat pawan mg/dL [facility] Leukocyte clumps LM.HPF (Urine sed) [#/Area] Many Abnormal Negative /HPF [facility] Leukocyte esterase Test strip Ql (U) 500 Abnormal Negative Bere/uL [facility] Nitrite Ql (U) Negative Negative [facility] th pH (U) 5.0 [pH] 5.0 - 8.0 pH [facility] Protein (U) [Mass/Vol] 70 mg/dL Abnormal Negative [facility] RBC LM.HPF (Urine sed) [#/Area] /[HPF] Abnormal [facility] Specific gravity (U) [Rel density] 1.007 1.005 - 1.030 [facility] Urobilinogen (U) [Mass/Vol] Normal Normal (0-1) mg/dL [facility] WBC LM.HPF (Urine sed) [#/Area] /[HPF] Abnormal [facility] Yeast.budding LM.HPF (Urine sed) [#/Area] Loaded Abnormal Negative /HPF [facility] ALBUMINon 08-08-2024 Albumin [Mass/Vol] 2.7 g/dL Low 3.5-5.0 [facility] Comment on above: Performed By: #### L AB45, [id number], LAB15, [id number] ####Assembly Machine Tender: MARY SOTELO ([id number])[facility] ([facility])[address] [place] [address] BASIC METABOLIC PANELon 10-0 Anion gap [Moles/Vol] 2 mmol/L Low 3-13 [facility] Comment on above: Performed By: #### L AB45, [id number], LAB15, ASH233 ####Assembly Machine Tender: MARY SOTELO ([id number])[facility] ([facility])[address] [place] [address] Calcium [Mass/Vol] 6.9 mg/dL Low 8.4-10.4 [facility] Comment on above: Performed By: #### L AB45, [id number], LAB15, [id number] ####Assembly Machine Tender: MARY SOTELO ([id number])[facility] ([facility])[address] [place] [address] [place] Chloride [Moles/Vol] 100 mmol/L Normal 98-107 [facility] Comment on above: Performed By: #### L AB45, [id number], LAB15, [id number] ####Assembly Machine Tender: MARY SOTELO ([id number])[facility] ([facility])[address] [place] [address] [place] CO2 [Moles/Vol] 32 mmol/L High 22-30 [facility] Comment on above: Performed By: #### L AB45, [id number], LAB15, BLB097 ####Assembly Machine Tender: MARY SOTELO ([id number])[facility] ([facility])[address] [place] [address] Creatinine [Mass/Vol] 1.51 mg/dL High 0.52-1.04 [facility] Comment on above: Performed By: #### L AB45, [id number], LAB15, OKD050 ####Assembly Machine Tender: MARY SOTELO ([id number])[facility])[address] [place] [address] GLOMERULAR FILTRATION RATE ML/MIN/1.73 SQ M.PREDICTED 38.4 mL/min/1.73m*2 Low >60.0 [facility] Comment on above: Result Comment: Calc ulation based on the Chronic Kidney Disease Epidemiology Collaboration (CKD-EPI) equation refit without adjustment for race Performed By: #### L AB45, [id number], LAB15, HDE861 ####Assembly Machine Tender: MARY SOTELO ([id number])[address] Glucose [Mass/Vol] 293 mg/dL High 70-100 [facility] Comment on above: Performed By: #### L AB45, EML974, LAB15, GVQ424 ####Assembly Machine Tender: MARY SOTELO ([id number])[facility])[address] [place] [address] Potassium [Moles/Vol] 3.7 mmol/L Normal 3.5-5.1 [facility] Comment on above: Performed By: #### L AB45, [id number], LAB15, LDI470 ####Assembly Machine Tender: MARY SOTELO ([id number])[address] Sodium [Moles/Vol] 134 mmol/L Low 135-145 [facility] Comment on above: Performed By: #### L AB45, [id number], LAB15, DCA776 ####Assembly Machine Tender: MARY SOTELO ([id number])[place] [address] [place] Urea nitrogen [Mass/Vol] 14 mg/dL Normal 7-17 [facility] Comment on above: Performed By: #### L AB45, [id number], LAB15, KFX999 ####Assembly Machine Tender: MARY SOTELO ([id number])[address] [place] [address] [facility] Basic metabolic 1998 panelon 08-08-2024 Anion gap [Moles/Vol] 2 mmol/L Low 3 - 13 mmol/L [facility] [employer] Calcium [Mass/Vol] 6.9 mg/dL Low 8.4 - 10. 4 mg/dL [facility] [employer] Chloride [Moles/Vol] 100 mmol/L 98 - 10 7 mmol/L [facility] CO2 [Moles/Vol] 32 mmol/L High 22 - 30 mmol/L [facility] [employer] Creatinine [Mass/Vol] 1.51 mg/dL High 0.52 - 1.04 mg/dL [facility] [employer] GFR/1.73 sq M.predicted (S/P/Bld) [Vol rate/Area] 38.4 mL/min Low - PINF [facility] [employer] Glucose [Mass/Vol] 293 mg/dL High 70 - 100 mg/dL [facility] [employer] Potassium [Moles/Vol] 3.7 mmol/L 3.5 - 5.1 mmol/L [facility] [employer] Sodium [Moles/Vol] 134 mmol/L Low 135 - 145 mmol/L [facility] [employer] Urea nitrogen [Mass/Vol] 14 mg/dL 7 - 17 mg/dL [facility] [employer] CBC W Auto Differential pane l (Bld)on 08-08-2024 Basophils (Bld) [#/Vol] 0.0 10*3/uL 0.0 - 0.2 10*3/uL [facility] [employer] Basophils/100 WBC (Bld) 0.1 % 0.0 - 2.0 % [facility] [employer] Eosinophils (Bld) [#/Vol] 0.3 10*3/uL 0.0 - 0.5 10*3/uL [facility] Eosinophils/100 WBC (Bld) 4.0 % 0.0 - 6.0 % [facility] Erythrocyte distribution width (RBC) [Ratio] 17.2 % High 11.5 - 15.0 % [facility] Hematocrit (Bld) [Volume fraction] 28.9 % Low 35.0 - 47.0 % [facility] [employer] Hemoglobin (Bld) [Mass/Vol] 8.7 g/dL Low 11.7 - 16.0 g/dL [facility] [employer] Immature granulocytes (Bld) [#/Vol] 0.1 10*3/uL High NINF - 0.1 10*3/uL [facility] [employer] Immature granulocytes/100 WBC (Bld) 1.3 % 0.0 - 2.0 % [facility] Interpretation and review of laboratory results Abnormal [facility] IPF 3 [facility] Lymphocytes (Bld) [#/Vol] 0.9 10*3/uL Low 1.0 - 4.3 10*3/uL [facility] Lymphocytes/100 WBC (Bld) 11.8 % Low 15.0 - 45.0 % [facility] MCH (RBC) [Entitic mass] 28.8 pg 26.0 - 34.0 pg [facility] MCHC (RBC) [Mass/Vol] 30.1 % Low 30.5 - 36.0 % [facility] MCV (RBC) [Entitic vol] 95.7 fL 77.0 - 99.0 fL [facility] Monocytes (Bld) [#/Vol] 0.3 10*3/uL 0.0 - 0.9 10*3/uL [facility] Monocytes/100 WBC (Bld) 4.5 % Low 5.0 - 13.0 % [facility] Neutrophils (Bld) [#/Vol] 5.9 10*3/uL 1.8 - 7.5 10*3/uL [facility] Neutrophils/100 WBC (Bld) 78.3 % 38.0 - 82.0 % [facility] Nucleated RBC/100 WBC (Bld) [Ratio] 0.0 % [facility] Platelet mean volume (Bld) [Entitic vol] 10.8 fL 9.0 - 12.7 fL [facility] Platelets (Bld) [#/Vol] 118 10*3/uL Low 140 - 440 10*3/uL [facility] RBC (Bld) [#/Vol] 3.02 10*6/uL Low 3.80 - 5.2 0 10*6/uL [facility] WBC (Bld) [#/Vol] 7.6 10*3/uL 3.6 - 10.7 10*3/uL [facility] CBC WITH AUTO DIFFERENTIALon 08-08-2024 Basophils (Bld) [#/Vol] 0.0 10*3/uL Normal 0.0-0.2 [facility] Comment on above: Performed By: #### L [id number] ####Assembly Machine Tender: MARY [id number])[facility])[address] [place] [address] Basophils/100 WBC (Bld) 0.1 % Normal 0.0-2.0 [facility] Comment on above: Performed By: #### L [id number] ####Assembly Machine Tender: MARY SOTELO ([id number])[facility])[address] [place] [address] Eosinophils (Bld) [#/Vol] 0.3 10*3/uL Normal 0.0-0.5 [facility] Comment on above: Performed By: #### L [id number] ####Assembly Machine Tender: MARY SOTELO ([id number])[address] Eosinophils/100 WBC (Bld) 4.0 % Normal 0.0-6.0 [facility] Comment on above: Performed By: #### L [id number] ####Assembly Machine Tender: MARY SOTELO ([id number])[facility])[address] [place] [address] Erythrocyte distribution width (RBC) [Ratio] 17.2 % High 11.5-15.0 [facility] Comment on above: Performed By: #### L [id number] ####Assembly Machine Tender: MARY SOTELO ([id number])[address] Hematocrit (Bld) [Volume fraction] 28.9 % Low 35.0-47.0 [facility] Comment on above: Performed By: #### L [id number] ####Assembly Machine Tender: MARY SOTELO ([id number])[facility])[address] [place] [address] Hemoglobin (Bld) [Mass/Vol] 8.7 g/dL Low 11.7-16.0 [facility] Comment on above: Performed By: #### L [id number] ####Assembly Machine Tender: MARY SOTELO ([id number])[facility] [address] IMMATURE GRANS % 1.3 % Normal 0.0-2.0 [facility] Comment on above: Performed By: #### L [id number] ####Assembly Machine Tender: MARY SOTELO ([id number])[facility])[address] [place] [address] IMMATURE GRANS ABSOLUTE 0.1 10*3/uL High <0.1 [facility] Comment on above: Performed By: #### L [id number] ####Assembly Machine Tender: MARY SOTELO ([id number])[place] [address] [place] IPF 3 Normal [facility] Comment on above: Performed By: #### L [id number] ####Assembly Machine Tender: MARY SOTELO ([id number])[address] Lymphocytes (Bld) [#/Vol] 0.9 10*3/uL Low 1.0-4.3 [facility] Comment on above: Performed By: #### L [id number] ####Assembly Machine Tender: MARY SOTELO ([id number])[address] Lymphocytes/100 WBC (Bld) 11.8 % Low 15.0-45.0 [facility] Comment on above: Performed By: #### L [id number] ####Assembly Machine Tender: MARY SOTELO ([id number])[facility])[address] [place] [address] MCH (RBC) [Entitic mass] 28.8 pg Normal 26.0-34.0 [facility] Comment on above: Performed By: #### L [id number] ####Assembly Machine Tender: MARY SOTELO ([id number])[address] MCHC 30.1 % Low 30.5-36.0 [facility] Comment on above: Performed By: #### L [id number] ####Assembly Machine Tender: MARY SOTELO ([id number])[facility] ([facility])[address] [place] [address] MCV (RBC) [Entitic vol] 95.7 fL Normal 77.0-99.0 [facility] Comment on above: Performed By: #### L [id number] ####Assembly Machine Tender: MARY SOTELO ([id number])[facility] ([facility])[address] [place] [address] Monocytes (Bld) [#/Vol] 0.3 10*3/uL Normal 0.0-0.9 [facility] Comment on above: Performed By: #### L [id number] ####Assembly Machine Tender: MARY SOTELO ([id number])[facility] ([facility])[address] [place] [address] Monocytes/100 WBC (Bld) 4.5 % Low 5.0-13.0 [facility] Comment on above: Performed By: #### L [id number] ####Assembly Machine Tender: MARY SOTELO ([id number])[facility] ([facility])[address] [place] [address] NEUTROPHILS ABSOLUTE 5.9 10*3/uL Normal 1.8-7.5 [facility] Comment on above: Performed By: #### L [id number] ####Assembly Machine Tender: MARY SOTELO ([id number])[facility] ([facility])[address] [place] [address] Neutrophils/100 WBC (Bld) 78.3 % Normal 38.0-82.0 [facility] Comment on above: Performed By: #### L [id number] ####Assembly Machine Tender: MARY SOTELO ([id number])[facility] ([facility])[address] [place] [address] [place] NRBC 0.0 /100 WBCs Normal 0.0-2.0 [facility] Comment on above: Performed By: #### L [id number] ####Assembly Machine Tender: MARY SOTELO ([id number])[facility] ([facility])[address] [place] [address] Platelet mean volume (Bld) [Entitic vol] 10.8 fL Normal 9.0-12.7 [facility] Comment on above: Performed By: #### L [id number] ####Assembly Machine Tender: MARY SOTELO ([id number])[facility] ([facility])[address] [place] [address] Platelets (Bld) [#/Vol] 118 10*3/uL Low 140-440 [facility] Comment on above: Performed By: #### L [id number] ####Assembly Machine Tender: MARY SOTELO ([id number])[facility] ([facility])[address] [place] [address] RBC (Bld) [#/Vol] 3.02 10*6/uL Low 3.80-5.20 [facility] Comment on above: Performed By: #### L [id number] ####Assembly Machine Tender: MARY SOTELO ([id number])[facility] ([facility])[address] [place] [address] WBC (Bld) [#/Vol] 7.6 10*3/uL Normal 3.6-10.7 [facility] Comment on above: Performed By: #### L [id number] ####Assembly Machine Tender: MARY SOTELO ([id number])[facility] ([facility])[address] [place] [address] IDNon 08-08-2024 IDN Normal [facility] IDN Normal [facility] Laboratory - Chemistry and C hemistry - challengeon 08-08-2024 Glucose [Mass/Vol] 218 mg/dL High 70 - 100 mg/dL [facility] Glucose [Mass/Vol] 245 mg/dL High 70 - 100 mg/dL [facility] Glucose [Mass/Vol] 334 mg/dL High 70 - 100 mg/dL [facility] Glucose [Mass/Vol] 314 mg/dL High 70 - 100 mg/dL [facility] Albumin [Mass/Vol] 2.7 g/dL Low 3.5 - 5.0 g/dL [facility] Magnesium [Mass/Vol] 1.7 mg/dL 1.6 - 2 .3 mg/dL [facility] MAGNESIUMon 08-08-2024 Magnesium [Mass/Vol] 1.7 mg/dL Normal 1.6-2.3 [facility] Comment on above: Performed By: #### L [id number], [id number], LAB15, [id number] ####Assembly Machine Tender: MARY SOTELO ([id number])[facility] ([facility])[address] [place] [address] [place] Magnesium [Mass/Vol]on 08-08 Interpretation and review of laboratory results Normal [facility] No Panel Informationon 08-08 Interpretation and review of laboratory results Abnormal [facility] Interpretation and review of laboratory results Abnormal [facility] Interpretation and review of laboratory results Abnormal [facility] Interpretation and review of laboratory results Abnormal [facility] Interpretation and review of laboratory results Abnormal [facility] Interpretation and review of laboratory results Abnormal [facility] PHOSPHORUSon 08-08-2024 Phosphate [Mass/Vol] 2.1 mg/dL Low 2.5-4.5 [facility] Comment on above: Performed By: #### L AB45, [id number], LAB15, [id number] ####Assembly Machine Tender: MARY SOTELO ([id number])[facility] ([facility])[address] [place] [address] [place] Phosphate [Moles/Vol]on Phosphate [Mass/Vol] 2.1 mg/dL Low 2.5 - 4 .5 mg/dL [facility] Progress Noteon 08-08-2024 Progress Note Normal [facility] Progress Note Normal [facility] XR CHEST 1 VIEWon 08-08-2024 XR CHEST 1 VIEW Normal [facility] XR Chest Single viewon 08-08 [facility] Radiology Study observation (narrative) [facility] XR Chest Single viewOrdered By: Kalia Foy on 08-08-2024 [facility] [employer] Work Phone: BASIC METABOLIC PANELon Anion gap [Moles/Vol] 1 mmol/L Low 3-13 [facility] Comment on above: Performed By: #### L AB103, [id number], LAB15 ####Assembly Machine Tender: MARY SOTELO ([id number])[facility] ([facility])[address] [place] [address] Calcium [Mass/Vol] 6.9 mg/dL Low 8.4-10.4 [facility] Comment on above: Performed By: #### Dora AB103, [id number], LAB15 ####Assembly Machine Tender: MARY SOTELO ([id number])[facility] [place] [address] Chloride [Moles/Vol] 102 mmol/L Normal 98-107 [facility] Comment on above: Performed By: #### Dora AB103, [id number], LAB15 ####Assembly Machine Tender: MARY SOTELO ([id number])[facility] [place] [address] CO2 [Moles/Vol] 31 mmol/L High 22-30 [facility] Comment on above: Performed By: #### Dora AB103, DEQ373, LAB15 ####Assembly Machine Tender: MARY SOTELO ([id number])[facility] ([facility])[address] [place] [address] Creatinine [Mass/Vol] 2.07 mg/dL High 0.52-1.04 [facility] Comment on above: Performed By: #### Dora AB103, [id number], LAB15 ####Assembly Machine Tender: MARY SOTELO ([id number])[facility])[address] [place] [address] GLOMERULAR FILTRATION RATE ML/MIN/1.73 SQ M.PREDICTED 26.3 mL/min/1.73m*2 Low >60.0 [facility] Comment on above: Result Comment: Calc ulation based on the Chronic Kidney Disease Epidemiology Collaboration (CKD-EPI) equation refit without adjustment for race Performed By: #### L AB103, [id number], LAB15 ####Assembly Machine Tender: MARY SOTELO ([id number])[facility] [place] [address] Glucose [Mass/Vol] 141 mg/dL High 70-100 [facility] Comment on above: Performed By: #### L AB103, [id number], LAB15 ####Assembly Machine Tender: MARY SOTELO ([id number])[facility] ([facility])[address] [place] [address] Potassium [Moles/Vol] 4.2 mmol/L Normal 3.5-5.1 [facility] Comment on above: Performed By: #### L AB103, [id number], LAB15 ####Assembly Machine Tender: MARY SOTELO ([id number])[facility] ([facility])[address] [place] [address] Sodium [Moles/Vol] 134 mmol/L Low 135-145 [facility] Comment on above: Performed By: #### L AB103, [id number], LAB15 ####Assembly Machine Tender: MARY SOTELO ([id number])[facility] ([facility])[address] [place] [address] Urea nitrogen [Mass/Vol] 23 mg/dL High 7-17 [facility] Comment on above: Performed By: #### L AB103, [id number], LAB15 ####Assembly Machine Tender: MARY SOTELO ([id number])[facility] ([facility])[address] [place] [address] Basic metabolic 1998 panelon 08-07-2024 Anion gap [Moles/Vol] 1 mmol/L Low 3 - 13 mmol/L [facility] Calcium [Mass/Vol] 6.9 mg/dL Low 8.4 - 10. 4 mg/dL [facility] Chloride [Moles/Vol] 102 mmol/L 98 - 10 7 mmol/L [facility] CO2 [Moles/Vol] 31 mmol/L High 22 - 30 mmol/L [facility] Creatinine [Mass/Vol] 2.07 mg/dL High 0.52 - 1.04 mg/dL [facility] GFR/1.73 sq M.predicted (S/P/Bld) [Vol rate/Area] 26.3 mL/min Low - PINF [facility] Glucose [Mass/Vol] 141 mg/dL High 70 - 100 mg/dL [facility] Interpretation and review of laboratory results Abnormal [facility] Potassium [Moles/Vol] 4.2 mmol/L 3.5 - 5.1 mmol/L [facility] Sodium [Moles/Vol] 134 mmol/L Low 135 - 145 mmol/L [facility] Urea nitrogen [Mass/Vol] 23 mg/dL High 7 - 17 mg/dL [facility] CBC W Auto Differential pane l (Bld)Ordered By: Nicole Lakhani on 08-07-2024 Basophils (Bld) [#/Vol] 0.0 10*3/uL 0.0 - 0.2 10*3/uL [facility] Basophils/100 WBC (Bld) 0.1 % 0.0 - 2.0 % [facility] Eosinophils (Bld) [#/Vol] 0.5 10*3/uL 0.0 - 0.5 10*3/uL [facility] Eosinophils/100 WBC (Bld) 5.9 % 0.0 - 6.0 % [facility] Erythrocyte distribution width (RBC) [Ratio] 17.4 % High 11.5 - 15.0 % [facility] Hematocrit (Bld) [Volume fraction] 26.7 % Low 35.0 - 47.0 % [facility] Hemoglobin (Bld) [Mass/Vol] 8.1 g/dL Low 11.7 - 16.0 g/dL [facility] Immature granulocytes (Bld) [#/Vol] 0.1 10*3/uL High NINF - 0.1 10*3/uL [facility] Immature granulocytes/100 WBC (Bld) 1.0 % 0.0 - 2.0 % [facility] Interpretation and review of laboratory results Abnormal [facility] IPF 2 [facility] Lymphocytes (Bld) [#/Vol] 1.4 10*3/uL 1.0 - 4.3 10*3/uL [facility] Lymphocytes/100 WBC (Bld) 17.9 % 15.0 - 45.0 % [facility] MCH (RBC) [Entitic mass] 28.6 pg 26.0 - 34.0 pg [facility] MCHC (RBC) [Mass/Vol] 30.3 % Low 30.5 - 36.0 % [facility] MCV (RBC) [Entitic vol] 94.3 fL 77.0 - 99.0 fL [facility] [employer] Monocytes (Bld) [#/Vol] 0.6 10*3/uL 0.0 - 0.9 10*3/uL [facility] Monocytes/100 WBC (Bld) 7.2 % 5.0 - 13.0 % [facility] [employer] Neutrophils (Bld) [#/Vol] 5.5 10*3/uL 1.8 - 7.5 10*3/uL [facility] Neutrophils/100 WBC (Bld) 67.9 % 38.0 - 82.0 % [facility] [employer] Nucleated RBC/100 WBC (Bld) [Ratio] 0.0 % [facility] [employer] Platelet mean volume (Bld) [Entitic vol] 9.8 fL 9.0 - 12.7 fL [facility] [employer] Platelets (Bld) [#/Vol] 128 10*3/uL Low 140 - 440 10*3/uL [facility] RBC (Bld) [#/Vol] 2.83 10*6/uL Low 3.80 - 5.2 0 10*6/uL [facility] WBC (Bld) [#/Vol] 8.0 10*3/uL 3.6 - 10.7 10*3/uL [facility] CBC WITH AUTO DIFFERENTIALon 08-07-2024 Basophils (Bld) [#/Vol] 0.0 10*3/uL Normal 0.0-0.2 [facility] Comment on above: Performed By: #### L [id number] ####Assembly Machine Tender: MARY SOTELO ([id number])[address] Basophils/100 WBC (Bld) 0.1 % Normal 0.0-2.0 [facility] Comment on above: Performed By: #### L [id number] ####Assembly Machine Tender: MARY SOTELO ([id number])[address] Eosinophils (Bld) [#/Vol] 0.5 10*3/uL Normal 0.0-0.5 [facility] Comment on above: Performed By: #### L [id number] ####Assembly Machine Tender: MARY SOTELO ([id number])[facility])[address] [place] [address] Eosinophils/100 WBC (Bld) 5.9 % Normal 0.0-6.0 [facility] Comment on above: Performed By: #### L [id number] ####Assembly Machine Tender: MARY SOTELO ([id number])[facility])[address] [place] [address] Erythrocyte distribution width (RBC) [Ratio] 17.4 % High 11.5-15.0 [facility] Comment on above: Performed By: #### L [id number] ####Assembly Machine Tender: MARY SOTELO ([id number])[facility])[address] [place] [address] Hematocrit (Bld) [Volume fraction] 26.7 % Low 35.0-47.0 [facility] Comment on above: Performed By: #### L [id number] ####Assembly Machine Tender: MARY SOTELO ([id number])[facility])[address] [place] [address] Hemoglobin (Bld) [Mass/Vol] 8.1 g/dL Low 11.7-16.0 [facility] Comment on above: Performed By: #### L [id number] ####Assembly Machine Tender: MARY SOTELO ([id number])[facility])[address] [place] [address] IMMATURE GRANS % 1.0 % Normal 0.0-2.0 [facility] Comment on above: Performed By: #### L [id number] ####Assembly Machine Tender: MARY SOTELO ([id number])[facility])[address] [place] [address] IMMATURE GRANS ABSOLUTE 0.1 10*3/uL High <0.1 [facility] Comment on above: Performed By: #### L [id number] ####Assembly Machine Tender: MARY SOTELO ([id number])[facility])[address] [place] [address] IPF 2 Normal [facility] Comment on above: Performed By: #### L [id number] ####Assembly Machine Tender: MARY SOTELO ([id number])[facility])[address] [place] [address] Lymphocytes (Bld) [#/Vol] 1.4 10*3/uL Normal 1.0-4.3 [facility] Comment on above: Performed By: #### L [id number] ####Assembly Machine Tender: MARY SOTELO ([id number])[facility])[address] [place] [address] Lymphocytes/100 WBC (Bld) 17.9 % Normal 15.0-45.0 [facility] Comment on above: Performed By: #### L [id number] ####Assembly Machine Tender: MARY SOTELO ([id number])[facility])[address] [place] [address] MCH (RBC) [Entitic mass] 28.6 pg Normal 26.0-34.0 [facility] Comment on above: Performed By: #### L [id number] ####Assembly Machine Tender: MARY SOTELO ([id number])[facility])[address] [place] [address] MCHC 30.3 % Low 30.5-36.0 [facility] Comment on above: Performed By: #### L [id number] ####Assembly Machine Tender: MARY SOTELO ([id number])[facility])[address] [place] [address] MCV (RBC) [Entitic vol] 94.3 fL Normal 77.0-99.0 [facility] Comment on above: Performed By: #### L [id number] ####Assembly Machine Tender: MARY SOTELO ([id number])[facility])[address] [place] [address] Monocytes (Bld) [#/Vol] 0.6 10*3/uL Normal 0.0-0.9 [facility] Comment on above: Performed By: #### L [id number] ####Assembly Machine Tender: MARY SOTELO ([id number])[facility] ([facility])[address] [place] [address] Monocytes/100 WBC (Bld) 7.2 % Normal 5.0-13.0 [facility] Comment on above: Performed By: #### L [id number] ####Assembly Machine Tender: MARY SOTELO ([id number])[facility] ([facility])[address] [place] [address] NEUTROPHILS ABSOLUTE 5.5 10*3/uL Normal 1.8-7.5 [facility] Comment on above: Performed By: #### L [id number] ####Assembly Machine Tender: MARY SOTELO ([id number])[facility])[address] [place] [address] Neutrophils/100 WBC (Bld) 67.9 % Normal 38.0-82.0 [facility] Comment on above: Performed By: #### L [id number] ####Assembly Machine Tender: MARY SOTELO ([id number])[facility] ([facility])[address] [place] [address] NRBC 0.0 /100 WBCs Normal 0.0-2.0 [facility] Comment on above: Performed By: #### L [id number] ####Assembly Machine Tender: MAYR SOTELO ([id number])[facility] ([facility])[address] [place] [address] Platelet mean volume (Bld) [Entitic vol] 9.8 fL Normal 9.0-12.7 [facility] Comment on above: Performed By: #### L [id number] ####Assembly Machine Tender: MARY SOTELO ([id number])[facility] ([facility])[address] [place] [address] [place] Platelets (Bld) [#/Vol] 128 10*3/uL Low 140-440 [facility] Comment on above: Performed By: #### L [id number] ####Assembly Machine Tender: MARY SOTELO ([id number])[facility] ([facility])[address] [place] [address] RBC (Bld) [#/Vol] 2.83 10*6/uL Low 3.80-5.20 [facility] Comment on above: Performed By: #### L [id number] ####Assembly Machine Tender: MARY SOTELO ([id number])[facility] ([facility])[address] [place] [address] WBC (Bld) [#/Vol] 8.0 10*3/uL Normal 3.6-10.7 [facility] Comment on above: Performed By: #### L [id number] ####Assembly Machine Tender: MARY SOTELO ([id number])[facility] ([facility])[address] [place] [address] IDNon 08-07-2024 IDN Normal [facility] IDN Normal [facility] Laboratory - Chemistry and C hemistry - challengeon 08-07-2024 Glucose [Mass/Vol] 176 mg/dL High 70 - 100 mg/dL [facility] Glucose [Mass/Vol] 283 mg/dL High 70 - 100 mg/dL [facility] Glucose [Mass/Vol] 249 mg/dL High 70 - 100 mg/dL [facility] Glucose [Mass/Vol] 179 mg/dL High 70 - 100 mg/dL [facility] Magnesium [Mass/Vol] 1.9 mg/dL 1.6 - 2 .3 mg/dL [facility] MAGNESIUMon 08-07-2024 Magnesium [Mass/Vol] 1.9 mg/dL Normal 1.6-2.3 [facility] Comment on above: Performed By: #### L AB103, [id number], LAB15 ####Assembly Machine Tender: MARY SOTELO ([id number])[facility] [place] [address] No Panel Informationon 08-07 Interpretation and review of laboratory results Abnormal [facility] Interpretation and review of laboratory results Abnormal [facility] Interpretation and review of laboratory results Abnormal [facility] Interpretation and review of laboratory results Abnormal [facility] Interpretation and review of laboratory results Normal [facility] Nursing Noteon 08-07-2024 Nursing Note Normal [facility] PHOSPHORUSon 08-07-2024 Phosphate [Mass/Vol] 3.7 mg/dL Normal 2.5-4.5 [facility] Comment on above: Performed By: #### L AB103, [id number], LAB15 ####Assembly Machine Tender: MARY SOTELO ([id number])[facility] ([facility])[address] [place] [address] [place] Phosphate [Moles/Vol]on Phosphate [Mass/Vol] 3.7 mg/dL 2.5 - 4 .5 mg/dL [facility] Progress Noteon 08-07-2024 Progress Note Normal [facility] Progress Note Normal [facility] RESPIRATORY PATHOGENS PANEL BY PCRon 08-07-2024 RESPIRATORY PATHOGENS PANEL BY PCR Normal [facility] Comment on above: Performed By: #### L [id number] ####Assembly Machine Tender: MARY SOTELO ([id number])[facility] ([facility])[address] [place] [address] Respiratory pathogens DNA an d RNA panel MARISA+non-probe (Nph)on 08-07-2024 Adenovirus Not detected Not Detected [facility] B. pertussis DNA MARISA+probe Ql (Unsp spec) Not detected Not Detected [facility] Bordetella parapertussis Not detected Not Detected [facility] Chlamydia pneumoniae Not detected Not Detected [facility] Coronavirus 229E Not detected Not Detected [facility] Coronavirus HKU1 Not detected Not Detected [facility] Coronavirus NL63 Not detected Not Detected [facility] Coronavirus OC43 Not detected Not Detected [facility] FLUAV RNA MARISA+non-probe Ql (Nph) Not detected Not Detected [facility] FLUBV RNA MARISA+non-probe Ql (Nph) Not detected Not Detected [facility] Human Metapneumovirus Not detected Not Detected [facility] Human Rhinovirus/Enterovirus Not detected Not Detected [facility] Interpretation and review of laboratory results Normal [facility] Mycoplasma pneumoniae Not detected Not Detected [facility] Parainfluenza 1 Not detected Not Detected [facility] Parainfluenza 2 Not detected Not Detected [facility] Parainfluenza 3 Not detected Not Detected [facility] Parainfluenza 4 Not detected Not Detected [facility] Respiratory Syncytial Virus Not detected Not Detected [facility] SARS-CoV-2 (COVID-19) RNA MARISA+non-probe Ql (Nph) Not detected Not Detected [facility] BASIC METABOLIC PANELon 10-0 Anion gap [Moles/Vol] 2 mmol/L Low 3-13 [facility] Comment on above: Performed By: #### L AB103, LAB15, [id number] ####Assembly Machine Tender: MARY SOTELO ([id number])[facility] ([facility])[address] [place] [address] Calcium [Mass/Vol] 7.4 mg/dL Low 8.4-10.4 [facility] Comment on above: Performed By: #### Dora AB103, LAB15, [id number] ####Assembly Machine Tender: MARY SOTELO ([id number])[facility] ([facility])[address] [place] [address] Chloride [Moles/Vol] 99 mmol/L Normal 98-107 [facility] Comment on above: Performed By: #### Dora AB103, LAB15, [id number] ####Assembly Machine Tender: MARY SOTELO ([id number])[facility] ([facility])[address] [place] [address] CO2 [Moles/Vol] 32 mmol/L High 22-30 [facility] Comment on above: Performed By: #### Dora AB103, LAB15, [id number] ####Assembly Machine Tender: MARY SOTELO ([id number])[facility] ([facility])[address] [place] [address] Creatinine [Mass/Vol] 1.40 mg/dL High 0.52-1.04 [facility] Comment on above: Performed By: #### L AB103, LAB15, [id number] ####Assembly Machine Tender: MARY SOTELO ([id number])[facility] ([facility])[address] [place] [address] GLOMERULAR FILTRATION RATE ML/MIN/1.73 SQ M.PREDICTED 42.1 mL/min/1.73m*2 Low >60.0 [facility] Comment on above: Result Comment: Calc ulation based on the Chronic Kidney Disease Epidemiology Collaboration (CKD-EPI) equation refit without adjustment for race Performed By: #### L AB103, LAB15, [id number] ####Assembly Machine Tender: MARY SOTELO ([id number])[facility] [place] [address] Glucose [Mass/Vol] 184 mg/dL High 70-100 [facility] Comment on above: Performed By: #### L AB103, LAB15, [id number] ####Assembly Machine Tender: MARY SOTELO ([id number])[facility] ([facility])[address] [place] [address] Potassium [Moles/Vol] 3.1 mmol/L Low 3.5-5.1 [facility] Comment on above: Performed By: #### Dora AB103, LAB15, [id number] ####Assembly Machine Tender: MARY SOTELO ([id number])[facility] [place] [address] Sodium [Moles/Vol] 133 mmol/L Low 135-145 [facility] Comment on above: Performed By: #### L AB103, LAB15, [id number] ####Assembly Machine Tender: MARY SOTELO ([id number])[facility] ([facility])[address] [place] [address] Urea nitrogen [Mass/Vol] 16 mg/dL Normal 7-17 [facility] Comment on above: Performed By: #### L AB103, LAB15, [id number] ####Assembly Machine Tender: MARY SOTELO ([id number])[facility] ([facility])[address] [place] [address] [place] BLOOD TYPE AND SCREEN GELon 08-06-2024 ABO GROUPING O Normal [facility] Comment on above: Performed By: #### L [id number] ####Assembly Machine Tender: MARY SOTELO ([id number])[facility] ([facility])[address] [place] [address] [place] RH TYPE IN BLOOD Positive Normal [facility] Comment on above: Performed By: #### L [id number] ####Assembly Machine Tender: MARY SOTELO ([id number])[facility] ([facility])[address] [place] [address] Basic metabolic 1998 panelon 08-06-2024 Anion gap [Moles/Vol] 2 mmol/L Low 3 - 13 mmol/L [facility] Calcium [Mass/Vol] 7.4 mg/dL Low 8.4 - 10. 4 mg/dL [facility] Chloride [Moles/Vol] 99 mmol/L 98 - 10 7 mmol/L [facility] CO2 [Moles/Vol] 32 mmol/L High 22 - 30 mmol/L [facility] Creatinine [Mass/Vol] 1.40 mg/dL High 0.52 - 1.04 mg/dL [facility] GFR/1.73 sq M.predicted (S/P/Bld) [Vol rate/Area] 42.1 mL/min Low - PINF [facility] Glucose [Mass/Vol] 184 mg/dL High 70 - 100 mg/dL [facility] Interpretation and review of laboratory results Abnormal [facility] Potassium [Moles/Vol] 3.1 mmol/L Low 3.5 - 5.1 mmol/L [facility] Sodium [Moles/Vol] 133 mmol/L Low 135 - 145 mmol/L [facility] Urea nitrogen [Mass/Vol] 16 mg/dL 7 - 17 mg/dL [facility] Blood type and Crossmatch pa eunice (Bld)on 08-06-2024 ABO group Nom (Bld) O [facility] Blood group antibody screen GEL Ql Negative [facility] D Ag Ql (RBC) Positive [facility] CARECOORDon 08-06-2024 [place] Per nephro - UMA. Ho pe to recover . Line is tunneled . Nephrology updated on plans to work on out pt and placement . Normal [facility] [place] Normal [facility] [place] Normal [facility] [place] Normal [facility] [place] Normal [facility] CBC W Auto Differential pane l (Bld)on 08-06-2024 Basophils (Bld) [#/Vol] 0.0 10*3/uL 0.0 - 0.2 10*3/uL [facility] Basophils/100 WBC (Bld) 0.2 % 0.0 - 2.0 % [facility] Eosinophils (Bld) [#/Vol] 0.4 10*3/uL 0.0 - 0.5 10*3/uL [facility] Eosinophils/100 WBC (Bld) 6.6 % High 0.0 - 6.0 % [facility] [employer] Erythrocyte distribution width (RBC) [Ratio] 17.8 % High 11.5 - 15.0 % [facility] Hematocrit (Bld) [Volume fraction] 21.6 % Low 35.0 - 47.0 % [facility] Hemoglobin (Bld) [Mass/Vol] 6.6 g/dL Critically low 11.7 - 16.0 g/dL [facility] Immature granulocytes (Bld) [#/Vol] 0.1 10*3/uL High NINF - 0.1 10*3/uL [facility] Immature granulocytes/100 WBC (Bld) 0.8 % 0.0 - 2.0 % [facility] Interpretation and review of laboratory results Abnormal [facility] IPF 3 [facility] Lymphocytes (Bld) [#/Vol] 1.2 10*3/uL 1.0 - 4.3 10*3/uL [facility] Lymphocytes/100 WBC (Bld) 17.9 % 15.0 - 45.0 % [facility] MCH (RBC) [Entitic mass] 28.4 pg 26.0 - 34.0 pg [facility] MCHC (RBC) [Mass/Vol] 30.6 % 30.5 - 36.0 % [facility] MCV (RBC) [Entitic vol] 93.1 fL 77.0 - 99.0 fL [facility] Monocytes (Bld) [#/Vol] 0.5 10*3/uL 0.0 - 0.9 10*3/uL [facility] Monocytes/100 WBC (Bld) 7.2 % 5.0 - 13.0 % [facility] Neutrophils (Bld) [#/Vol] 4.4 10*3/uL 1.8 - 7.5 10*3/uL [facility] Neutrophils/100 WBC (Bld) 67.3 % 38.0 - 82.0 % [facility] Nucleated RBC/100 WBC (Bld) [Ratio] 0.0 % [facility] Platelet mean volume (Bld) [Entitic vol] 10.6 fL 9.0 - 12.7 fL [facility] Platelets (Bld) [#/Vol] 120 10*3/uL Low 140 - 440 10*3/uL [facility] RBC (Bld) [#/Vol] 2.32 10*6/uL Low 3.80 - 5.2 0 10*6/uL [facility] WBC (Bld) [#/Vol] 6.5 10*3/uL 3.6 - 10.7 10*3/uL [facility] CBC WITH AUTO DIFFERENTIALon 08-06-2024 Basophils (Bld) [#/Vol] 0.0 10*3/uL Normal 0.0-0.2 [facility] Comment on above: Performed By: #### L [id number] ####Assembly Machine Tender: MARY SOTELO ([id number])[address] Basophils/100 WBC (Bld) 0.2 % Normal 0.0-2.0 [facility] Comment on above: Performed By: #### L [id number] ####Assembly Machine Tender: MARY SOTELO ([id number])[facility])[address] [place] [address] Eosinophils (Bld) [#/Vol] 0.4 10*3/uL Normal 0.0-0.5 [facility] Comment on above: Performed By: #### L [id number] ####Assembly Machine Tender: MARY SOTELO ([id number])[facility])[address] [place] [address] Eosinophils/100 WBC (Bld) 6.6 % High 0.0-6.0 [facility] Comment on above: Performed By: #### L [id number] ####Assembly Machine Tender: MARY SOTELO ([id number])[facility])[address] [place] [address] Erythrocyte distribution width (RBC) [Ratio] 17.8 % High 11.5-15.0 [facility] Comment on above: Performed By: #### L [id number] ####Assembly Machine Tender: MARY SOTELO ([id number])[facility])[address] [place] [address] Hematocrit (Bld) [Volume fraction] 21.6 % Low 35.0-47.0 [facility] Comment on above: Performed By: #### L [id number] ####Assembly Machine Tender: MARY SOTELO ([id number])[facility])[address] [place] [address] Hemoglobin (Bld) [Mass/Vol] 6.6 g/dL Critically low 11.7-16.0 [facility] Comment on above: Performed By: #### L [id number] ####Assembly Machine Tender: MARY SOTELO ([id number])[address] IMMATURE GRANS % 0.8 % Normal 0.0-2.0 [facility] Comment on above: Performed By: #### L [id number] ####Assembly Machine Tender: MARY SOTELO ([id number])[address] IMMATURE GRANS ABSOLUTE 0.1 10*3/uL High <0.1 [facility] Comment on above: Performed By: #### L [id number] ####Assembly Machine Tender: MARY SOTELO ([id number])[facility])[address] [place] [address] IPF 3 Normal [facility] Comment on above: Performed By: #### L [id number] ####Assembly Machine Tender: MARY SOTELO ([id number])[address] Lymphocytes (Bld) [#/Vol] 1.2 10*3/uL Normal 1.0-4.3 [facility] Comment on above: Performed By: #### L [id number] ####Assembly Machine Tender: MARY SOTELO ([id number])[facility])[address] [place] [address] Lymphocytes/100 WBC (Bld) 17.9 % Normal 15.0-45.0 [facility] Comment on above: Performed By: #### L [id number] ####Assembly Machine Tender: MARY SOTELO ([id number])[facility])[address] [place] [address] MCH (RBC) [Entitic mass] 28.4 pg Normal 26.0-34.0 [facility] Comment on above: Performed By: #### L [id number] ####Assembly Machine Tender: MARY SOTELO ([id number])[facility])[address] [place] [address] MCHC 30.6 % Normal 30.5-36.0 [facility] Comment on above: Performed By: #### L [id number] ####Assembly Machine Tender: MARY SOTELO ([id number])[facility])[address] [place] [address] MCV (RBC) [Entitic vol] 93.1 fL Normal 77.0-99.0 [facility] Comment on above: Performed By: #### L [id number] ####Assembly Machine Tender: MARY SOTELO ([id number])[facility])[address] [place] [address] Monocytes (Bld) [#/Vol] 0.5 10*3/uL Normal 0.0-0.9 [facility] Comment on above: Performed By: #### L [id number] ####Assembly Machine Tender: MARY SOTELO ([id number])[facility])[address] [place] [address] Monocytes/100 WBC (Bld) 7.2 % Normal 5.0-13.0 [facility] Comment on above: Performed By: #### L [id number] ####Assembly Machine Tender: MARY SOTELO ([id number])[facility])[address] [place] [address] NEUTROPHILS ABSOLUTE 4.4 10*3/uL Normal 1.8-7.5 [facility] Comment on above: Performed By: #### L [id number] ####Assembly Machine Tender: MARY SOTELO ([id number])[facility] ([facility])[address] [place] [address] Neutrophils/100 WBC (Bld) 67.3 % Normal 38.0-82.0 [facility] Comment on above: Performed By: #### L [id number] ####Assembly Machine Tender: MARY SOTELO ([id number])[facility] ([facility])[address] [place] [address] NRBC 0.0 /100 WBCs Normal 0.0-2.0 [facility] Comment on above: Performed By: #### L [id number] ####Assembly Machine Tender: MARY SOTELO ([id number])[facility] ([facility])[address] [place] [address] Platelet mean volume (Bld) [Entitic vol] 10.6 fL Normal 9.0-12.7 [facility] Comment on above: Performed By: #### L [id number] ####Assembly Machine Tender: MARY SOTELO ([id number])[facility] ([facility])[address] [place] [address] [place] Platelets (Bld) [#/Vol] 120 10*3/uL Low 140-440 [facility] Comment on above: Performed By: #### L [id number] ####Assembly Machine Tender: MARY SOTELO ([id number])[facility] ([facility])[address] [place] [address] [place] RBC (Bld) [#/Vol] 2.32 10*6/uL Low 3.80-5.20 [facility] Comment on above: Performed By: #### L [id number] ####Assembly Machine Tender: MARY SOTELO ([id number])[facility])[address] [place] [address] [place] WBC (Bld) [#/Vol] 6.5 10*3/uL Normal 3.6-10.7 [facility] Comment on above: Performed By: #### L [id number] ####Assembly Machine Tender: MARY SOTELO ([id number])[facility] ([facility])[address] [place] [address] [place] HEMOGLOBIN AND HEMATOCRIT, B LOODon 08-06-2024 Hematocrit (Bld) [Volume fraction] 25.2 % Low 35.0-47.0 [facility] Comment on above: Order Comment: Recom mend 1 hour post transfusion Performed By: #### L [id number] ####Assembly Machine Tender: MARY SOTELO ([id number])[facility] [place] [address] Hemoglobin (Bld) [Mass/Vol] 7.9 g/dL Low 11.7-16.0 [facility] Comment on above: Order Comment: Recom mend 1 hour post transfusion Performed By: #### L [id number] ####Assembly Machine Tender: MARY SOTELO ([id number])[facility] ([facility])[address] [place] [address] Hemoglobin (Bld) [Mass/Vol]o n 08-06-2024 Hematocrit (Bld) [Volume fraction] 25.2 % Low 35.0 - 47.0 % [facility] Interpretation and review of laboratory results Abnormal [facility] IDNon 08-06-2024 IDN The patient is Moderately Stable - Low risk of patient condition declining or worsening The patient's goals for the shift include The clinical goals for the shift include Normal [facility] IDN Normal [facility] IDN Normal [facility] Laboratory - Chemistry and C hemistry - challengeon 08-06-2024 Glucose [Mass/Vol] 271 mg/dL High 70 - 100 mg/dL [facility] Glucose [Mass/Vol] 305 mg/dL High 70 - 100 mg/dL [facility] Glucose [Mass/Vol] 333 mg/dL High 70 - 100 mg/dL [facility] Glucose [Mass/Vol] 199 mg/dL High 70 - 100 mg/dL [facility] Magnesium [Mass/Vol] 1.9 mg/dL 1.6 - 2 .3 mg/dL [facility] Laboratory - Hematology and Cell countson 08-06-2024 Hemoglobin (Bld) [Mass/Vol] 7.9 g/dL Low 11.7 - 16.0 g/dL [facility] MAGNESIUMon 08-06-2024 Magnesium [Mass/Vol] 1.9 mg/dL Normal 1.6-2.3 [facility] Comment on above: Performed By: #### L AB103, LAB15, [id number] ####Assembly Machine Tender: MARY SOTELO ([id number])[facility])[address] [place] [address] [place] Magnesium [Mass/Vol]on 08-06 Interpretation and review of laboratory results Normal [facility] No Panel Informationon 08-06 Interpretation and review of laboratory results Abnormal [facility] Interpretation and review of laboratory results Abnormal [facility] Interpretation and review of laboratory results Abnormal [facility] Interpretation and review of laboratory results Abnormal [facility] Blood Expiration Date S [facility] Crossmatch interpretation COMP [facility] Dispense Status Transfused [facility] Product Blood Type 5100 [facility] PRODUCT CODE [id number] [facility] Unit ABO O [facility] Unit Number [id number] [facility] RH Positive [facility] Volume 300 mL [facility] Nursing Noteon 08-06-2024 Nursing Note Patient bladder scanned for 113 ml. Patient states she does not need to void. Message sent to Dr Jarrett Normal [facility] Nursing Note Central line dressin g changed, patient tolerated well Normal [facility] Nursing Note Johsnon removed per orders, patient tolerated well Normal [facility] PHOSPHORUSon 08-06-2024 Phosphate [Mass/Vol] 2.2 mg/dL Low 2.5-4.5 [facility] Comment on above: Performed By: #### L AB103, LAB15, [id number] ####Assembly Machine Tender: MARY SOTELO ([id number])[facility] ([facility])[address] [place] [address] [place] Phosphate [Moles/Vol]on Interpretation and review of laboratory results Abnormal [facility] Phosphate [Mass/Vol] 2.2 mg/dL Low 2.5 - 4 .5 mg/dL [facility] Progress Noteon 08-06-2024 Progress Note Normal [facility] Progress [facility] Progress Note Normal [facility] Progress Note OCCUPATIONAL THERAPY [facility] Name/MRN: Sandy Deng ([id number]) Date: 08/06/2024 Hold OT this a.m.; HgB 6.6 with order to transfuse. Will follow and treat as appropriate. GUILLERMO Taylor Normal [facility] Progress Note Normal [facility] BASIC METABOLIC PANELon 10-0 Anion gap [Moles/Vol] 0 mmol/L Low 3-13 [facility] Comment on above: Performed By: #### L AB103, [id number], LAB15 ####Assembly Machine Tender: MARY SOTELO ([id number])[facility])[address] [place] [address] Calcium [Mass/Vol] 6.7 mg/dL Low 8.4-10.4 [facility] Comment on above: Performed By: #### L AB103, CQL892, LAB15 ####Assembly Machine Tender: MARY SOTELO ([id number])[facility])[address] [place] [address] Chloride [Moles/Vol] 105 mmol/L Normal 98-107 [facility] Comment on above: Performed By: #### L AB103, [id number], LAB15 ####Assembly Machine Tender: MARY SOTELO ([id number])[facility])[address] [place] [address] [place] CO2 [Moles/Vol] 26 mmol/L Normal 22-30 [facility] Comment on above: Performed By: #### L AB103, LXQ416, LAB15 ####Assembly Machine Tender: MARY SOTELO ([id number])[facility])[address] [place] [address] [place] Creatinine [Mass/Vol] 2.56 mg/dL High 0.52-1.04 [facility] Comment on above: Performed By: #### L AB103, YIV809, LAB15 ####Assembly Machine Tender: MARY SOTELO ([id number])[facility])[address] [place] [address] GLOMERULAR FILTRATION RATE ML/MIN/1.73 SQ M.PREDICTED 20.4 mL/min/1.73m*2 Low >60.0 [facility] Comment on above: Result Comment: Calc ulation based on the Chronic Kidney Disease Epidemiology Collaboration (CKD-EPI) equation refit without adjustment for race Performed By: #### L AB103, MMD545, LAB15 ####Assembly Machine Tender: MARY SOTELO ([id number])[facility])[address] [place] [address] Glucose [Mass/Vol] 151 mg/dL High 70-100 [facility] Comment on above: Performed By: #### L AB103, GIF693, LAB15 ####Assembly Machine Tender: MARY SOTELO ([id number])[facility])[address] [place] [address] Potassium [Moles/Vol] 4.0 mmol/L Normal 3.5-5.1 [facility] Comment on above: Performed By: #### L AB103, TOS375, LAB15 ####Assembly Machine Tender: MARY SOTELO ([id number])[facility])[address] [place] [address] Sodium [Moles/Vol] 132 mmol/L Low 135-145 [facility] Comment on above: Performed By: #### L AB103, [id number], LAB15 ####Assembly Machine Tender: MARY SOTELO ([id number])[facility])[address] [place] [address] Urea nitrogen [Mass/Vol] 35 mg/dL High 7-17 [facility] Comment on above: Performed By: #### L AB103, [id number], LAB15 ####Assembly Machine Tender: MARY SOTELO ([id number])[facility])[address] [place] [address] Basic metabolic 1998 panelon 08-05-2024 Anion gap [Moles/Vol] 0 mmol/L Low 3 - 13 mmol/L [facility] Calcium [Mass/Vol] 6.7 mg/dL Low 8.4 - 10. 4 mg/dL [facility] Chloride [Moles/Vol] 105 mmol/L 98 - 10 7 mmol/L [facility] CO2 [Moles/Vol] 26 mmol/L 22 - 30 mmol/L [facility] Creatinine [Mass/Vol] 2.56 mg/dL High 0.52 - 1.04 mg/dL [facility] GFR/1.73 sq M.predicted (S/P/Bld) [Vol rate/Area] 20.4 mL/min Low - PINF [facility] Glucose [Mass/Vol] 151 mg/dL High 70 - 100 mg/dL [facility] Interpretation and review of laboratory results Abnormal [facility] Potassium [Moles/Vol] 4.0 mmol/L 3.5 - 5.1 mmol/L [facility] Sodium [Moles/Vol] 132 mmol/L Low 135 - 145 mmol/L [facility] Urea nitrogen [Mass/Vol] 35 mg/dL High 7 - 17 mg/dL [facility] CARECOORDon 08-05-2024 [facility] requested PT/OT t o see today via see today tool to start auth. Normal [facility] CBC W Auto Differential pane l (Bld)on 08-05-2024 Basophils (Bld) [#/Vol] 0.0 10*3/uL 0.0 - 0.2 10*3/uL [facility] Basophils/100 WBC (Bld) 0.0 % 0.0 - 2.0 % [facility] Eosinophils (Bld) [#/Vol] 0.0 10*3/uL 0.0 - 0.5 10*3/uL [facility] Eosinophils/100 WBC (Bld) 0.5 % 0.0 - 6.0 % [facility] Erythrocyte distribution width (RBC) [Ratio] 17.7 % High 11.5 - 15.0 % [facility] Hematocrit (Bld) [Volume fraction] 23.6 % Low 35.0 - 47.0 % [facility] Hemoglobin (Bld) [Mass/Vol] 7.4 g/dL Low 11.7 - 16.0 g/dL [facility] Immature granulocytes (Bld) [#/Vol] 0.1 10*3/uL High NINF - 0.1 10*3/uL [facility] Immature granulocytes/100 WBC (Bld) 0.7 % 0.0 - 2.0 % [facility] Interpretation and review of laboratory results Abnormal [facility] Lymphocytes (Bld) [#/Vol] 0.7 10*3/uL Low 1.0 - 4.3 10*3/uL [facility] Lymphocytes/100 WBC (Bld) 9.8 % Low 15.0 - 45.0 % [facility] MCH (RBC) [Entitic mass] 28.4 pg 26.0 - 34.0 pg [facility] MCHC (RBC) [Mass/Vol] 31.4 % 30.5 - 36.0 % [facility] MCV (RBC) [Entitic vol] 90.4 fL 77.0 - 99.0 fL [facility] Monocytes (Bld) [#/Vol] 0.3 10*3/uL 0.0 - 0.9 10*3/uL [facility] Monocytes/100 WBC (Bld) 4.2 % Low 5.0 - 13.0 % [facility] Neutrophils (Bld) [#/Vol] 6.3 10*3/uL 1.8 - 7.5 10*3/uL [facility] Neutrophils/100 WBC (Bld) 84.8 % High 38.0 - 82.0 % [facility] Nucleated RBC/100 WBC (Bld) [Ratio] 0.0 % [facility] Platelet mean volume (Bld) [Entitic vol] 10.0 fL 9.0 - 12.7 fL [facility] Platelets (Bld) [#/Vol] 168 10*3/uL 140 - 440 10*3/uL [facility] RBC (Bld) [#/Vol] 2.61 10*6/uL Low 3.80 - 5.2 0 10*6/uL [facility] WBC (Bld) [#/Vol] 7.4 10*3/uL 3.6 - 10.7 10*3/uL [facility] CBC WITH AUTO DIFFERENTIALon 10-03-2024 Basophils (Bld) [#/Vol] 0.0 10*3/uL Normal 0.0-0.2 [facility] Comment on above: Performed By: #### L [id number] ####Assembly Machine Tender: MARY SOTELO ([id number])[facility])[address] [place] [address] Basophils/100 WBC (Bld) 0.0 % Normal 0.0-2.0 [facility] Comment on above: Performed By: #### L [id number] ####Assembly Machine Tender: MARY SOTELO ([id number])[facility])[address] [place] [address] Eosinophils (Bld) [#/Vol] 0.0 10*3/uL Normal 0.0-0.5 [facility] Comment on above: Performed By: #### L [id number] ####Assembly Machine Tender: MARY SOTELO ([id number])[facility])[address] [place] [address] [place] Eosinophils/100 WBC (Bld) 0.5 % Normal 0.0-6.0 [facility] Comment on above: Performed By: #### L [id number] ####Assembly Machine Tender: MARY SOTELO ([id number])[facility])[address] [place] [address] Erythrocyte distribution width (RBC) [Ratio] 17.7 % High 11.5-15.0 [facility] Comment on above: Performed By: #### L [id number] ####Assembly Machine Tender: MARY SOTELO ([id number])[facility])[address] [place] [address] Hematocrit (Bld) [Volume fraction] 23.6 % Low 35.0-47.0 [facility] Comment on above: Performed By: #### L [id number] ####Assembly Machine Tender: MARY SOTELO ([id number])[facility])[address] [place] [address] Hemoglobin (Bld) [Mass/Vol] 7.4 g/dL Low 11.7-16.0 [facility] Comment on above: Performed By: #### L [id number] ####Assembly Machine Tender: MARY SOTELO ([id number])[facility])[address] [place] [address] IMMATURE GRANS % 0.7 % Normal 0.0-2.0 [facility] Comment on above: Performed By: #### L [id number] ####Assembly Machine Tender: MARY SOTELO ([id number])[facility])[address] [place] [address] IMMATURE GRANS ABSOLUTE 0.1 10*3/uL High <0.1 [facility] Comment on above: Performed By: #### L [id number] ####Assembly Machine Tender: MARY SOTELO ([id number])[address] Lymphocytes (Bld) [#/Vol] 0.7 10*3/uL Low 1.0-4.3 [facility] Comment on above: Performed By: #### L [id number] ####Assembly Machine Tender: MARY SOTELO ([id number])[facility])[address] [place] [address] Lymphocytes/100 WBC (Bld) 9.8 % Low 15.0-45.0 [facility] Comment on above: Performed By: #### L [id number] ####Assembly Machine Tender: MARY SOTELO ([id number])[address] MCH (RBC) [Entitic mass] 28.4 pg Normal 26.0-34.0 [facility] Comment on above: Performed By: #### L [id number] ####Assembly Machine Tender: MARY SOTELO ([id number])[address] MCHC 31.4 % Normal 30.5-36.0 [facility] Comment on above: Performed By: #### L [id number] ####Assembly Machine Tender: MARY SOTELO ([id number])[facility] ([facility])[address] [place] [address] MCV (RBC) [Entitic vol] 90.4 fL Normal 77.0-99.0 [facility] Comment on above: Performed By: #### L [id number] ####Assembly Machine Tender: MARY SOTELO ([id number])[facility])[address] [place] [address] Monocytes (Bld) [#/Vol] 0.3 10*3/uL Normal 0.0-0.9 [facility] Comment on above: Performed By: #### L [id number] ####Assembly Machine Tender: MARY SOTELO ([id number])[facility])[address] [place] [address] Monocytes/100 WBC (Bld) 4.2 % Low 5.0-13.0 [facility] Comment on above: Performed By: #### L [id number] ####Assembly Machine Tender: MARY SOTELO ([id number])[facility] ([facility])[address] [place] [address] NEUTROPHILS ABSOLUTE 6.3 10*3/uL Normal 1.8-7.5 [facility] Comment on above: Performed By: #### L [id number] ####Assembly Machine Tender: MARY SOTELO ([id number])[facility])[address] [place] [address] Neutrophils/100 WBC (Bld) 84.8 % High 38.0-82.0 [facility] Comment on above: Performed By: #### L [id number] ####Assembly Machine Tender: MARY SOTELO ([id number])[facility] ([facility])[address] [place] [address] NRBC 0.0 /100 WBCs Normal 0.0-2.0 [facility] Comment on above: Performed By: #### L [id number] ####Assembly Machine Tender: MARY SOTELO ([id number])[facility] ([facility])[address] [place] [address] Platelet mean volume (Bld) [Entitic vol] 10.0 fL Normal 9.0-12.7 [facility] Comment on above: Performed By: #### L [id number] ####Assembly Machine Tender: MARY SOTELO ([id number])[facility] ([facility])[address] [place] [address] Platelets (Bld) [#/Vol] 168 10*3/uL Normal 140-440 [facility] Comment on above: Performed By: #### L [id number] ####Assembly Machine Tender: MARY SOTELO ([id number])[facility] ([facility])[address] [place] [address] RBC (Bld) [#/Vol] 2.61 10*6/uL Low 3.80-5.20 [facility] Comment on above: Performed By: #### L [id number] ####Assembly Machine Tender: MARY SOTELO ([id number])[facility] ([facility])[address] [place] [address] WBC (Bld) [#/Vol] 7.4 10*3/uL Normal 3.6-10.7 [facility] Comment on above: Performed By: #### L [id number] ####Assembly Machine Tender: MARY SOTELO ([id number])[facility] ([facility])[address] [place] [address] LACTIC ACID WITH REFLEXon Lactate [Moles/Vol] 0.5 mmol/L Low 0.7-2.0 [facility] Comment on above: Performed By: #### L [id number] ####Assembly Machine Tender: MARY SOTELO ([id number])[facility] ([facility])[address] [place] [address] Laboratory - Chemistry and C hemistry - challengeon 08-05-2024 Glucose [Mass/Vol] 341 mg/dL High 70 - 100 mg/dL [facility] Glucose [Mass/Vol] 303 mg/dL High 70 - 100 mg/dL [facility] Procalcitonin [Mass/Vol] 0.16 ng/mL High 0.00 - 0.09 ng/mL [facility] Glucose [Mass/Vol] 285 mg/dL High 70 - 100 mg/dL [facility] Glucose [Mass/Vol] 139 mg/dL High 70 - 100 mg/dL [facility] Magnesium [Mass/Vol] 2.2 mg/dL 1.6 - 2 .3 mg/dL [facility] Lactate [Moles/Vol] 0.5 mmol/L Low 0.7 - 2. 0 mmol/L [facility] MAGNESIUMon 08-05-2024 Magnesium [Mass/Vol] 2.2 mg/dL Normal 1.6-2.3 [facility] Comment on above: Performed By: #### L [id number], [id number], LAB15 ####Assembly Machine Tender: MARY SOTELO ([id number])[address] No Panel Informationon 08-05 Interpretation and review of laboratory results Abnormal [facility] Interpretation and review of laboratory results Abnormal [facility] Interpretation and review of laboratory results Abnormal [facility] Interpretation and review of laboratory results Abnormal [facility] Interpretation and review of laboratory results Normal [facility] Interpretation and review of laboratory results Abnormal [facility] Nursing Noteon 08-05-2024 Nursing Note Normal [facility] PHOSPHORUSon 08-05-2024 Phosphate [Mass/Vol] 3.6 mg/dL Normal 2.5-4.5 [facility] Comment on above: Performed By: #### L AB103, [id number], LAB15 ####Assembly Machine Tender: MARY SOTELO ([id number])[facility] ([facility])[address] [place] [address] PROCALCITONIN TESTon 024 PROCALCITONIN 0.16 ng/mL High 0.00-0.09 [facility] Comment on above: Result Comment: ORDE R COMMENTS:PCT <0.50 = Low risk of severe sepsis and/or septic shock.PCT >2.00 = High risk of severe sepsis and/or septic shock. Performed By: #### L [id number] ####Assembly Machine Tender: MARY SOTELO ([id number])[facility] [place] [address] [place] Phosphate [Moles/Vol]on Phosphate [Mass/Vol] 3.6 mg/dL 2.5 - 4 .5 mg/dL [facility] Procalcitonin [Mass/Vol]on - Interpretation and review of laboratory results Abnormal [facility] Progress Noteon 08-05-2024 Progress Note Normal [facility] Progress [facility] Normal [facility] Progress Note Normal [facility] Progress Note Normal [facility] Progress Note Normal [facility] Progress Note Normal [facility] XR CHEST 1 VIEWon 08-05-2024 XR CHEST 1 VIEW Normal [facility] XR Chest Single viewon 08-05 [facility] RADIOLOGY [facility] EMERGENCY DEPARTMENT RADIOLOGY SYSTEM [facility] Radiology Study observation (narrative) [facility] BASIC METABOLIC PANELon Anion gap [Moles/Vol] 4 mmol/L Normal 3-13 [facility] Comment on above: Performed By: #### L AB113, [id number], LAB15 ####Assembly Machine Tender: MARY SOTELO ([id number])[facility] ([facility])[address] [place] [address] [place] Calcium [Mass/Vol] 7.0 mg/dL Low 8.4-10.4 [facility] Comment on above: Performed By: #### L AB113, [id number], LAB15 ####Assembly Machine Tender: MARY SOTELO ([id number])[facility] ([facility])[address] [place] [address] [place] Chloride [Moles/Vol] 104 mmol/L Normal 98-107 [facility] Comment on above: Performed By: #### L AB113, [id number], LAB15 ####Assembly Machine Tender: MARY SOTELO ([id number])[facility] ([facility])[address] [place] [address] [place] CO2 [Moles/Vol] 26 mmol/L Normal 22-30 [facility] Comment on above: Performed By: #### L AB113, [id number], LAB15 ####Assembly Machine Tender: MARY SOTELO ([id number])[facility] ([facility])[address] [place] [address] Creatinine [Mass/Vol] 1.88 mg/dL High 0.52-1.04 [facility] Comment on above: Performed By: #### L AB113, [id number], LAB15 ####Assembly Machine Tender: MARY SOTELO ([id number])[facility])[address] [place] [address] GLOMERULAR FILTRATION RATE ML/MIN/1.73 SQ M.PREDICTED 29.6 mL/min/1.73m*2 Low >60.0 [facility] Comment on above: Result Comment: Calc ulation based on the Chronic Kidney Disease Epidemiology Collaboration (CKD-EPI) equation refit without adjustment for race Performed By: #### L AB113, [id number], LAB15 ####Assembly Machine Tender: MARY SOTELO ([id number])[facility] ([facility])[address] [place] [address] Glucose [Mass/Vol] 119 mg/dL High 70-100 [facility] Comment on above: Performed By: #### Dora AB113, [id number], LAB15 ####Assembly Machine Tender: MARY SOTELO ([id number])[facility] ([facility])[address] [place] [address] Potassium [Moles/Vol] 3.6 mmol/L Normal 3.5-5.1 [facility] Comment on above: Performed By: #### L AB113, [id number], LAB15 ####Assembly Machine Tender: MARY SOTELO ([id number])[facility] ([facility])[address] [place] [address] [place] Sodium [Moles/Vol] 134 mmol/L Low 135-145 [facility] Comment on above: Performed By: #### L AB113, [id number], LAB15 ####Assembly Machine Tender: MARY SOTELO ([id number])[facility])[address] [place] [address] [place] Urea nitrogen [Mass/Vol] 24 mg/dL High 7-17 [facility] Comment on above: Performed By: #### L AB113, [id number], LAB15 ####Assembly Machine Tender: MARY SOTELO ([id number])[facility] ([facility])[address] [place] [address] Basic metabolic 1998 panelon 08-04-2024 Anion gap [Moles/Vol] 4 mmol/L 3 - 13 mmol/L [facility] Calcium [Mass/Vol] 7.0 mg/dL Low 8.4 - 10. 4 mg/dL [facility] Chloride [Moles/Vol] 104 mmol/L 98 - 10 7 mmol/L [facility] CO2 [Moles/Vol] 26 mmol/L 22 - 30 mmol/L [facility] Creatinine [Mass/Vol] 1.88 mg/dL High 0.52 - 1.04 mg/dL [facility] GFR/1.73 sq M.predicted (S/P/Bld) [Vol rate/Area] 29.6 mL/min Low - PINF [facility] Glucose [Mass/Vol] 119 mg/dL High 70 - 100 mg/dL [facility] Interpretation and review of laboratory results Abnormal [facility] Potassium [Moles/Vol] 3.6 mmol/L 3.5 - 5.1 mmol/L [facility] Sodium [Moles/Vol] 134 mmol/L Low 135 - 145 mmol/L [facility] Urea nitrogen [Mass/Vol] 24 mg/dL High 7 - 17 mg/dL [facility] CALCIUM, IONIZEDon CALCIUM IONIZED 3.70 mg/dL Low 4.30-5.20 [facility] Comment on above: Performed By: #### L [id number] ####Assembly Machine Tender: MARY SOTELO ([id number])[facility] [place] [address] PH, IONIZED CALCIUM 7.45 Normal 7.31-7.46 [facility] Comment on above: Performed By: #### L AB54 ####Assembly Machine Tender: MARY SOTELO ([id number])[facility] ([facility])[address] [place] [address] CARECOORDon 08-04-2024 CARECOORD Normal [facility] CBC W Auto Differential pane l (Bld)on 08-04-2024 Basophils (Bld) [#/Vol] 0.0 10*3/uL 0.0 - 0.2 10*3/uL [facility] Basophils/100 WBC (Bld) 0.1 % 0.0 - 2.0 % [facility] Eosinophils (Bld) [#/Vol] 0.1 10*3/uL 0.0 - 0.5 10*3/uL [facility] Eosinophils/100 WBC (Bld) 0.7 % 0.0 - 6.0 % [facility] Erythrocyte distribution width (RBC) [Ratio] 17.4 % High 11.5 - 15.0 % [facility] Hematocrit (Bld) [Volume fraction] 26.5 % Low 35.0 - 47.0 % [facility] Hemoglobin (Bld) [Mass/Vol] 8.3 g/dL Low 11.7 - 16.0 g/dL [facility] Immature granulocytes (Bld) [#/Vol] 0.1 10*3/uL High NINF - 0.1 10*3/uL [facility] Immature granulocytes/100 WBC (Bld) 1.1 % 0.0 - 2.0 % [facility] Interpretation and review of laboratory results Abnormal [facility] Lymphocytes (Bld) [#/Vol] 0.7 10*3/uL Low 1.0 - 4.3 10*3/uL [facility] Lymphocytes/100 WBC (Bld) 8.4 % Low 15.0 - 45.0 % [facility] MCH (RBC) [Entitic mass] 28.5 pg 26.0 - 34.0 pg [facility] MCHC (RBC) [Mass/Vol] 31.3 % 30.5 - 36.0 % [facility] MCV (RBC) [Entitic vol] 91.1 fL 77.0 - 99.0 fL [facility] Monocytes (Bld) [#/Vol] 0.3 10*3/uL 0.0 - 0.9 10*3/uL [facility] Monocytes/100 WBC (Bld) 3.6 % Low 5.0 - 13.0 % [facility] Neutrophils (Bld) [#/Vol] 7.4 10*3/uL 1.8 - 7.5 10*3/uL [facility] Neutrophils/100 WBC (Bld) 86.1 % High 38.0 - 82.0 % [facility] Nucleated RBC/100 WBC (Bld) [Ratio] 0.0 % [facility] Platelet mean volume (Bld) [Entitic vol] 9.1 fL 9.0 - 12.7 fL [facility] Platelets (Bld) [#/Vol] 178 10*3/uL 140 - 440 10*3/uL [facility] RBC (Bld) [#/Vol] 2.91 10*6/uL Low 3.80 - 5.2 0 10*6/uL [facility] WBC (Bld) [#/Vol] 8.5 10*3/uL 3.6 - 10.7 10*3/uL [facility] CBC WITH AUTO DIFFERENTIALon 08-04-2024 Basophils (Bld) [#/Vol] 0.0 10*3/uL Normal 0.0-0.2 [facility] Comment on above: Performed By: #### L [id number] ####Assembly Machine Tender: MARY SOTELO ([id number])[facility])[address] [place] [address] Basophils/100 WBC (Bld) 0.1 % Normal 0.0-2.0 [facility] Comment on above: Performed By: #### L [id number] ####Assembly Machine Tender: MARY SOTELO ([id number])[address] Eosinophils (Bld) [#/Vol] 0.1 10*3/uL Normal 0.0-0.5 [facility] Comment on above: Performed By: #### L [id number] ####Assembly Machine Tender: MARY SOTELO ([id number])[facility])[address] [place] [address] [place] Eosinophils/100 WBC (Bld) 0.7 % Normal 0.0-6.0 [facility] Comment on above: Performed By: #### L [id number] ####Assembly Machine Tender: MARY [id number])[facility] Erythrocyte distribution width (RBC) [Ratio] 17.4 % High 11.5-15.0 [facility] Comment on above: Performed By: #### L [id number] ####Assembly Machine Tender: MARY SOTELO ([id number])[facility])[address] [place] [address] Hematocrit (Bld) [Volume fraction] 26.5 % Low 35.0-47.0 [facility] Comment on above: Performed By: #### L [id number] ####Assembly Machine Tender: MARY SOTELO ([id number])[address] Hemoglobin (Bld) [Mass/Vol] 8.3 g/dL Low 11.7-16.0 [facility] Comment on above: Performed By: #### L [id number] ####Assembly Machine Tender: MARY SOTELO ([id number])[facility])[address] [place] [address] IMMATURE GRANS % 1.1 % Normal 0.0-2.0 [facility] Comment on above: Performed By: #### L [id number] ####Assembly Machine Tender: MARY SOTELO ([id number])[facility])[address] [place] [address] IMMATURE GRANS ABSOLUTE 0.1 10*3/uL High <0.1 [facility] Comment on above: Performed By: #### L [id number] ####Assembly Machine Tender: MARY SOTELO ([id number])[facility])[address] [place] [address] Lymphocytes (Bld) [#/Vol] 0.7 10*3/uL Low 1.0-4.3 [facility] Comment on above: Performed By: #### L [id number] ####Assembly Machine Tender: MARY SOTELO ([id number])[facility])[address] [place] [address] [place] Lymphocytes/100 WBC (Bld) 8.4 % Low 15.0-45.0 [facility] Comment on above: Performed By: #### L [id number] ####Assembly Machine Tender: MARY SOTELO ([id number])[facility])[address] [place] [address] MCH (RBC) [Entitic mass] 28.5 pg Normal 26.0-34.0 [facility] Comment on above: Performed By: #### L [id number] ####Assembly Machine Tender: MARY SOTELO ([id number])[facility] ([facility])[address] [place] [address] MCHC 31.3 % Normal 30.5-36.0 [facility] Comment on above: Performed By: #### L [id number] ####Assembly Machine Tender: MARY SOTELO ([id number])[facility])[address] [place] [address] MCV (RBC) [Entitic vol] 91.1 fL Normal 77.0-99.0 [facility] Comment on above: Performed By: #### L [id number] ####Assembly Machine Tender: MARY SOTELO ([id number])[facility] ([facility])[address] [place] [address] Monocytes (Bld) [#/Vol] 0.3 10*3/uL Normal 0.0-0.9 [facility] Comment on above: Performed By: #### L [id number] ####Assembly Machine Tender: MARY SOTELO ([id number])[facility])[address] [place] [address] Monocytes/100 WBC (Bld) 3.6 % Low 5.0-13.0 [facility] Comment on above: Performed By: #### L [id number] ####Assembly Machine Tender: MARY SOTELO ([id number])[facility])[address] [place] [address] NEUTROPHILS ABSOLUTE 7.4 10*3/uL Normal 1.8-7.5 [facility] Comment on above: Performed By: #### L [id number] ####Assembly Machine Tender: MARY SOTELO ([id number])[facility] [place] [address] Neutrophils/100 WBC (Bld) 86.1 % High 38.0-82.0 [facility] Comment on above: Performed By: #### L [id number] ####Assembly Machine Tender: MARY SOTELO ([id number])[facility] ([facility])[address] [place] [address] NRBC 0.0 /100 WBCs Normal 0.0-2.0 [facility] Comment on above: Performed By: #### L [id number] ####Assembly Machine Tender: MARY SOTELO ([id number])[facility] ([facility])[address] [place] [address] Platelet mean volume (Bld) [Entitic vol] 9.1 fL Normal 9.0-12.7 [facility] Comment on above: Performed By: #### L [id number] ####Assembly Machine Tender: MARY SOTELO ([id number])[facility] ([facility])[address] [place] [address] Platelets (Bld) [#/Vol] 178 10*3/uL Normal 140-440 [facility] Comment on above: Performed By: #### L [id number] ####Assembly Machine Tender: MARY SOTELO ([id number])[facility] ([facility])[address] [place] [address] RBC (Bld) [#/Vol] 2.91 10*6/uL Low 3.80-5.20 [facility] Comment on above: Performed By: #### L [id number] ####Assembly Machine Tender: MARY SOTELO ([id number])[facility] ([facility])[address] [place] [address] [place] WBC (Bld) [#/Vol] 8.5 10*3/uL Normal 3.6-10.7 [facility] Comment on above: Performed By: #### L [id number] ####Assembly Machine Tender: MARY SOTELO ([id number])[facility] ([facility])[address] Calcium.ionized [Moles/Vol]o n 08-04-2024 Calcium.ionized (Bld) [Moles/Vol] 3.70 mg/dL Low 4.30 - 5.20 mg/dL [facility] Interpretation and review of laboratory results Abnormal [facility] PH, IONIZED CALCIUM 7.45 7.31 - 7.46 [facility] IDNon 08-04-2024 IDN Normal [facility] Laboratory - Chemistry and C hemistry - challengeon 08-04-2024 Glucose [Mass/Vol] 167 mg/dL High 70 - 100 mg/dL [facility] Glucose [Mass/Vol] 181 mg/dL High 70 - 100 mg/dL [facility] Glucose [Mass/Vol] 191 mg/dL High 70 - 100 mg/dL [facility] Glucose [Mass/Vol] 113 mg/dL High 70 - 100 mg/dL [facility] Magnesium [Mass/Vol] 2.0 mg/dL 1.6 - 2 .3 mg/dL [facility] MAGNESIUMon 08-04-2024 Magnesium [Mass/Vol] 2.0 mg/dL Normal 1.6-2.3 [facility] Comment on above: Performed By: #### L AB113, [id number], LAB15 ####Assembly Machine Tender: MARY SOTELO ([id number])[facility] ([facility])[address] [place] [address] No Panel Informationon 08-04 Interpretation and review of laboratory results Abnormal [facility] Interpretation and review of laboratory results Abnormal [facility] Interpretation and review of laboratory results Abnormal [facility] Interpretation and review of laboratory results Abnormal [facility] Interpretation and review of laboratory results Normal [facility] Nursing Noteon 08-04-2024 Nursing Note Normal [facility] PHOSPHORUSon 08-04-2024 Phosphate [Mass/Vol] 3.4 mg/dL Normal 2.5-4.5 [facility] Comment on above: Performed By: #### L AB113, [id number], LAB15 ####Assembly Machine Tender: MARY SOTELO ([id number])[facility] ([facility])[address] [place] [address] [place] Phosphate [Moles/Vol]on Phosphate [Mass/Vol] 3.4 mg/dL 2.5 - 4 .5 mg/dL [facility] Progress Noteon 08-04-2024 Progress Note Normal [facility] Progress [facility] Normal [facility] Progress Note Normal [facility] Progress Note Normal [facility] RF videography Hypopharynx a nd Esophagus Views for swallowing function W speech and W barium contrast Harman 08-04-2024 [facility] Radiology Study observation (narrative) [facility] RF videography Hypopharynx a nd Esophagus Views for swallowing function W speech and W barium contrast POOrdered By: Mynor Pulido on 08-04-2024 [facility] Work Phone: BASIC METABOLIC PANELon Anion gap [Moles/Vol] 1 mmol/L Low 3-13 [facility] Comment on above: Performed By: #### L AB103, LAB15, [id number] ####Assembly Machine Tender: MARY SOTELO ([id number])[facility] [place] [address] [place] Calcium [Mass/Vol] 7.4 mg/dL Low 8.4-10.4 [facility] Comment on above: Performed By: #### L AB103, LAB15, [id number] ####Assembly Machine Tender: MARY SOTELO ([id number])[facility] [place] [address] [place] Chloride [Moles/Vol] 110 mmol/L High 98-107 [facility] Comment on above: Performed By: #### L AB103, LAB15, [id number] ####Assembly Machine Tender: MARY SOTELO ([id number])[facility] [place] [address] [place] CO2 [Moles/Vol] 26 mmol/L Normal 22-30 [facility] Comment on above: Performed By: #### L AB103, LAB15, [id number] ####Assembly Machine Tender: MARY SOTELO ([id number])[facility] ([facility])[address] [place] [address] Creatinine [Mass/Vol] 2.29 mg/dL High 0.52-1.04 [facility] Comment on above: Performed By: #### L AB103, LAB15, [id number] ####Assembly Machine Tender: MARY SOTELO ([id number])[facility])[address] [place] [address] GLOMERULAR FILTRATION RATE ML/MIN/1.73 SQ M.PREDICTED 23.3 mL/min/1.73m*2 Low >60.0 [facility] Comment on above: Result Comment: Calc ulation based on the Chronic Kidney Disease Epidemiology Collaboration (CKD-EPI) equation refit without adjustment for race Performed By: #### L AB103, LAB15, [id number] ####Assembly Machine Tender: MARY SOTELO ([id number])[facility] ([facility])[address] [place] [address] Glucose [Mass/Vol] 87 mg/dL Normal 70-100 [facility] Comment on above: Performed By: #### L AB103, LAB15, [id number] ####Assembly Machine Tender: MARY SOTELO ([id number])[facility])[address] [place] [address] Potassium [Moles/Vol] 4.3 mmol/L Normal 3.5-5.1 [facility] Comment on above: Performed By: #### L AB103, LAB15, [id number] ####Assembly Machine Tender: MARY SOTELO ([id number])[facility] ([facility])[address] [place] [address] [place] Sodium [Moles/Vol] 137 mmol/L Normal 135-145 [facility] Comment on above: Performed By: #### L AB103, LAB15, [id number] ####Assembly Machine Tender: MARY SOTELO ([id number])[facility])[address] [place] [address] [place] Urea nitrogen [Mass/Vol] 28 mg/dL High 7-17 [facility] Comment on above: Performed By: #### L AB103, LAB15, [id number] ####Assembly Machine Tender: MARY SOTELO ([id number])[facility] ([facility])[address] [place] [address] Basic metabolic 1998 panelon 08-03-2024 Anion gap [Moles/Vol] 1 mmol/L Low 3 - 13 mmol/L [facility] Calcium [Mass/Vol] 7.4 mg/dL Low 8.4 - 10. 4 mg/dL [facility] Chloride [Moles/Vol] 110 mmol/L High 98 - 10 7 mmol/L [facility] CO2 [Moles/Vol] 26 mmol/L 22 - 30 mmol/L [facility] Creatinine [Mass/Vol] 2.29 mg/dL High 0.52 - 1.04 mg/dL [facility] GFR/1.73 sq M.predicted (S/P/Bld) [Vol rate/Area] 23.3 mL/min Low - PINF [facility] Glucose [Mass/Vol] 87 mg/dL 70 - 100 mg/dL [facility] Potassium [Moles/Vol] 4.3 mmol/L 3.5 - 5.1 mmol/L [facility] Sodium [Moles/Vol] 137 mmol/L 135 - 145 mmol/L [facility] Urea nitrogen [Mass/Vol] 28 mg/dL High 7 - 17 mg/dL [facility] CALCIUM, IONIZEDon CALCIUM IONIZED 4.20 mg/dL Low 4.30-5.20 [facility] Comment on above: Performed By: #### L [id number] ####Assembly Machine Tender: MARY SOTELO ([id number])[facility] ([facility])[address] [place] [address] PH, IONIZED CALCIUM 7.29 Low 7.31-7.46 [facility] Comment on above: Performed By: #### L [id number] ####Assembly Machine Tender: MARY SOTELO ([id number])[facility] ([facility])[address] [place] [address] CARECOORDon 08-03-2024 CARECOORD Normal [facility] CBC W Auto Differential pane l (Bld)Ordered By: Irais Carranza on 08-03-2024 Basophils (Bld) [#/Vol] 0.0 10*3/uL 0.0 - 0.2 10*3/uL [facility] Basophils/100 WBC (Bld) 0.2 % 0.0 - 2.0 % [facility] Eosinophils (Bld) [#/Vol] 0.1 10*3/uL 0.0 - 0.5 10*3/uL [facility] Eosinophils/100 WBC (Bld) 0.5 % 0.0 - 6.0 % [facility] Erythrocyte distribution width (RBC) [Ratio] 18.1 % High 11.5 - 15.0 % [facility] Hematocrit (Bld) [Volume fraction] 28.6 % Low 35.0 - 47.0 % [facility] Hemoglobin (Bld) [Mass/Vol] 8.5 g/dL Low 11.7 - 16.0 g/dL [facility] Immature granulocytes (Bld) [#/Vol] 0.1 10*3/uL High NINF - 0.1 10*3/uL [facility] Immature granulocytes/100 WBC (Bld) 1.1 % 0.0 - 2.0 % [facility] Interpretation and review of laboratory results [facility] Lymphocytes (Bld) [#/Vol] 0.7 10*3/uL Low 1.0 - 4.3 10*3/uL [facility] Lymphocytes/100 WBC (Bld) 6.5 % Low 15.0 - 45.0 % [facility] MCH (RBC) [Entitic mass] 27.4 pg 26.0 - 34.0 pg [facility] MCHC (RBC) [Mass/Vol] 29.7 % Low 30.5 - 36.0 % [facility] MCV (RBC) [Entitic vol] 92.3 fL 77.0 - 99.0 fL [facility] Monocytes (Bld) [#/Vol] 0.3 10*3/uL 0.0 - 0.9 10*3/uL [facility] Monocytes/100 WBC (Bld) 3.0 % Low 5.0 - 13.0 % [facility] Neutrophils (Bld) [#/Vol] 9.6 10*3/uL High 1.8 - 7.5 10*3/uL [facility] Neutrophils/100 WBC (Bld) 88.7 % High 38.0 - 82.0 % [facility] Nucleated RBC/100 WBC (Bld) [Ratio] 0.0 % [facility] Platelet mean volume (Bld) [Entitic vol] 9.9 fL 9.0 - 12.7 fL [facility] Platelets (Bld) [#/Vol] 210 10*3/uL 140 - 440 10*3/uL [facility] RBC (Bld) [#/Vol] 3.10 10*6/uL Low 3.80 - 5.2 0 10*6/uL [facility] WBC (Bld) [#/Vol] 10.8 10*3/uL High 3.6 - 10.7 10*3/uL [facility] CBC WITH AUTO DIFFERENTIALon 08-03-2024 Basophils (Bld) [#/Vol] 0.0 10*3/uL Normal 0.0-0.2 [facility] Comment on above: Performed By: #### L [id number] ####Assembly Machine Tender: MAYR SOTELO ([id number])[facility])[address] [place] [address] Basophils/100 WBC (Bld) 0.2 % Normal 0.0-2.0 [facility] Comment on above: Performed By: #### L [id number] ####Assembly Machine Tender: MARY SOTELO ([id number])[facility])[address] [place] [address] Eosinophils (Bld) [#/Vol] 0.1 10*3/uL Normal 0.0-0.5 [facility] Comment on above: Performed By: #### L [id number] ####Assembly Machine Tender: MARY SOTELO ([id number])[facility])[address] [place] [address] Eosinophils/100 WBC (Bld) 0.5 % Normal 0.0-6.0 [facility] Comment on above: Performed By: #### L [id number] ####Assembly Machine Tender: MARY SOTELO ([id number])[facility])[address] [place] [address] [place] Erythrocyte distribution width (RBC) [Ratio] 18.1 % High 11.5-15.0 [facility] Comment on above: Performed By: #### L [id number] ####Assembly Machine Tender: MARY SOTELO ([id number])[facility])[address] [place] [address] Hematocrit (Bld) [Volume fraction] 28.6 % Low 35.0-47.0 [facility] Comment on above: Performed By: #### L [id number] ####Assembly Machine Tender: MARY SOTELO ([id number])[facility])[address] [place] [address] Hemoglobin (Bld) [Mass/Vol] 8.5 g/dL Low 11.7-16.0 [facility] Comment on above: Performed By: #### L [id number] ####Assembly Machine Tender: MARY SOTELO ([id number])[facility])[address] [place] [address] IMMATURE GRANS % 1.1 % Normal 0.0-2.0 [facility] Comment on above: Performed By: #### L [id number] ####Assembly Machine Tender: MARY SOTELO ([id number])[facility])[address] [place] [address] IMMATURE GRANS ABSOLUTE 0.1 10*3/uL High <0.1 [facility] Comment on above: Performed By: #### L [id number] ####Assembly Machine Tender: MARY SOTELO ([id number])[facility])[address] [place] [address] [place] Lymphocytes (Bld) [#/Vol] 0.7 10*3/uL Low 1.0-4.3 [facility] Comment on above: Performed By: #### L [id number] ####Assembly Machine Tender: MARY SOTELO ([id number])[facility])[address] [place] [address] [place] Lymphocytes/100 WBC (Bld) 6.5 % Low 15.0-45.0 [facility] Comment on above: Performed By: #### L [id number] ####Assembly Machine Tender: MARY SOTELO ([id number])[facility])[address] [place] [address] MCH (RBC) [Entitic mass] 27.4 pg Normal 26.0-34.0 [facility] Comment on above: Performed By: #### L [id number] ####Assembly Machine Tender: MARY SOTELO ([id number])[facility])[address] [place] [address] MCHC 29.7 % Low 30.5-36.0 [facility] Comment on above: Performed By: #### L [id number] ####Assembly Machine Tender: MARY SOTELO ([id number])[facility])[address] [place] [address] MCV (RBC) [Entitic vol] 92.3 fL Normal 77.0-99.0 [facility] Comment on above: Performed By: #### L [id number] ####Assembly Machine Tender: MARY SOTELO ([id number])[facility] ([facility])[address] [place] [address] Monocytes (Bld) [#/Vol] 0.3 10*3/uL Normal 0.0-0.9 [facility] Comment on above: Performed By: #### L [id number] ####Assembly Machine Tender: MARY SOTELO ([id number])[facility])[address] [place] [address] Monocytes/100 WBC (Bld) 3.0 % Low 5.0-13.0 [facility] Comment on above: Performed By: #### L [id number] ####Assembly Machine Tender: MARY SOTELO ([id number])[facility])[address] [place] [address] NEUTROPHILS ABSOLUTE 9.6 10*3/uL High 1.8-7.5 [facility] Comment on above: Performed By: #### L [id number] ####Assembly Machine Tender: MARY SOTELO ([id number])[facility] [place] [address] Neutrophils/100 WBC (Bld) 88.7 % High 38.0-82.0 [facility] Comment on above: Performed By: #### L [id number] ####Assembly Machine Tender: MARY SOTELO ([id number])[facility] ([facility])[address] [place] [address] NRBC 0.0 /100 WBCs Normal 0.0-2.0 [facility] Comment on above: Performed By: #### L [id number] ####Assembly Machine Tender: MARY SOTELO ([id number])[facility])[address] [place] [address] Platelet mean volume (Bld) [Entitic vol] 9.9 fL Normal 9.0-12.7 [facility] Comment on above: Performed By: #### L [id number] ####Assembly Machine Tender: MARY SOTELO ([id number])[facility] ([facility])[address] [place] [address] Platelets (Bld) [#/Vol] 210 10*3/uL Normal 140-440 [facility] Comment on above: Performed By: #### L [id number] ####Assembly Machine Tender: MARY SOTELO ([id number])[facility] ([facility])[address] [place] [address] RBC (Bld) [#/Vol] 3.10 10*6/uL Low 3.80-5.20 [facility] Comment on above: Performed By: #### L [id number] ####Assembly Machine Tender: MARY SOTELO ([id number])[facility] ([facility])[address] [place] [address] WBC (Bld) [#/Vol] 10.8 10*3/uL High 3.6-10.7 [facility] Comment on above: Performed By: #### L [id number] ####Assembly Machine Tender: MARY SOTELO ([id number])[facility] ([facility])[address] [place] [address] Calcium.ionized [Moles/Vol]o n 08-03-2024 Calcium.ionized (Bld) [Moles/Vol] 4.20 mg/dL Low 4.30 - 5.20 mg/dL [facility] Interpretation and review of laboratory results Abnormal [facility] PH, IONIZED CALCIUM 7.29 Low 7.31 - 7.46 [facility] - Chemistry and C hemistry - challengeon 08-03-2024 Glucose [Mass/Vol] 118 mg/dL High 70 - 100 mg/dL [facility] Glucose [Mass/Vol] 93 mg/dL 70 - 100 mg/dL [facility] Glucose [Mass/Vol] 173 mg/dL High 70 - 100 mg/dL [facility] Glucose [Mass/Vol] 81 mg/dL 70 - 100 mg/dL [facility] Magnesium [Mass/Vol] 2.4 mg/dL High 1.6 - 2 .3 mg/dL [facility] Glucose [Mass/Vol] 88 mg/dL 70 - 100 mg/dL [facility] MAGNESIUMon 08-03-2024 Magnesium [Mass/Vol] 2.4 mg/dL High 1.6-2.3 [facility] Comment on above: Performed By: #### L AB103, LAB15, [id number] ####Assembly Machine Tender: MARY SOTELO ([id number])[address] No Panel Informationon 08-03 Interpretation and review of laboratory results Abnormal [facility] Interpretation and review of laboratory results Normal [facility] Interpretation and review of laboratory results Abnormal [facility] Interpretation and review of laboratory results Normal [facility] Interpretation and review of laboratory results Abnormal [facility] Interpretation and review of laboratory results Normal [facility] Nursing Noteon 08-03-2024 Nursing Note Normal [facility] PHOSPHORUSon 08-03-2024 Phosphate [Mass/Vol] 3.4 mg/dL Normal 2.5-4.5 [facility] Comment on above: Performed By: #### L AB103, LAB15, [id number] ####Assembly Machine Tender: MARY SOTELO ([id number])[facility] [place] [address] [place] Phosphate [Moles/Vol]on Interpretation and review of laboratory results Normal [facility] Phosphate [Mass/Vol] 3.4 mg/dL 2.5 - 4 .5 mg/dL [facility] Progress Noteon 08-03-2024 Progress Note Normal [facility] Progress Note Normal [facility] Progress Note Normal [facility] Progress [facility] Normal [facility] Progress Note Normal [facility] BASIC METABOLIC PANELon 09-3 Anion gap [Moles/Vol] 3 mmol/L Normal 3-13 [facility] Comment on above: Performed By: #### L AB113, LAB15, [id number] ####Assembly Machine Tender: MARY SOTELO ([id number])[facility] ([facility])[address] [place] [address] [place] Calcium [Mass/Vol] 7.4 mg/dL Low 8.4-10.4 [facility] Comment on above: Performed By: #### L AB113, LAB15, [id number] ####Assembly Machine Tender: MARY SOTELO ([id number])[facility] ([facility])[address] [place] [address] [place] Chloride [Moles/Vol] 107 mmol/L Normal 98-107 [facility] Comment on above: Performed By: #### L AB113, LAB15, [id number] ####Assembly Machine Tender: MARY SOTELO ([id number])[facility] ([facility])[address] [place] [address] [place] CO2 [Moles/Vol] 23 mmol/L Normal 22-30 [facility] Comment on above: Performed By: #### L AB113, LAB15, [id number] ####Assembly Machine Tender: MARY SOTELO ([id number])[facility] ([facility])[address] [place] [address] [place] Creatinine [Mass/Vol] 1.55 mg/dL High 0.52-1.04 [facility] Comment on above: Performed By: #### L AB113, LAB15, [id number] ####Assembly Machine Tender: MARY SOTELO ([id number])[facility])[address] [place] [address] GLOMERULAR FILTRATION RATE ML/MIN/1.73 SQ M.PREDICTED 37.3 mL/min/1.73m*2 Low >60.0 [facility] Comment on above: Result Comment: Calc ulation based on the Chronic Kidney Disease Epidemiology Collaboration (CKD-EPI) equation refit without adjustment for race Performed By: #### L AB113, LAB15, [id number] ####Assembly Machine Tender: MARY SOTELO ([id number])[facility] ([facility])[address] [place] [address] Glucose [Mass/Vol] 212 mg/dL High 70-100 [facility] Comment on above: Performed By: #### Dora AB113, LAB15, [id number] ####Assembly Machine Tender: MARY SOTELO ([id number])[facility])[address] [place] [address] Potassium [Moles/Vol] 4.1 mmol/L Normal 3.5-5.1 [facility] Comment on above: Performed By: #### Dora AB113, LAB15, [id number] ####Assembly Machine Tender: MARY SOTELO ([id number])[facility])[address] [place] [address] Sodium [Moles/Vol] 134 mmol/L Low 135-145 [facility] Comment on above: Performed By: #### L AB113, LAB15, [id number] ####Assembly Machine Tender: MARY SOTELO ([id number])[facility] ([facility])[address] [place] [address] [place] Urea nitrogen [Mass/Vol] 21 mg/dL High 7-17 [facility] Comment on above: Performed By: #### L AB113, LAB15, [id number] ####Assembly Machine Tender: MARY SOTELO ([id number])[facility])[address] [place] [address] Basic metabolic 1998 panelon 08-02-2024 Anion gap [Moles/Vol] 3 mmol/L 3 - 13 mmol/L [facility] Calcium [Mass/Vol] 7.4 mg/dL Low 8.4 - 10. 4 mg/dL [facility] Chloride [Moles/Vol] 107 mmol/L 98 - 10 7 mmol/L [facility] CO2 [Moles/Vol] 23 mmol/L 22 - 30 mmol/L [facility] Creatinine [Mass/Vol] 1.55 mg/dL High 0.52 - 1.04 mg/dL [facility] GFR/1.73 sq M.predicted (S/P/Bld) [Vol rate/Area] 37.3 mL/min Low - PINF [facility] Glucose [Mass/Vol] 212 mg/dL High 70 - 100 mg/dL [facility] Interpretation and review of laboratory results Abnormal [facility] Potassium [Moles/Vol] 4.1 mmol/L 3.5 - 5.1 mmol/L [facility] Sodium [Moles/Vol] 134 mmol/L Low 135 - 145 mmol/L [facility] Urea nitrogen [Mass/Vol] 21 mg/dL High 7 - 17 mg/dL [facility] CALCIUM, IONIZEDon CALCIUM IONIZED 4.30 mg/dL Normal 4.30-5.20 [facility] Comment on above: Performed By: #### L [id number] ####Assembly Machine Tender: MARY SOTELO ([id number])[address] PH, IONIZED CALCIUM 7.36 Normal 7.31-7.46 [facility] Comment on above: Performed By: #### L AB54 ####Assembly Machine Tender: MARY SOTELO ([id number])[facility] ([facility])[address] [place] [address] CARECOORDon 08-02-2024 CARECOORD Normal [facility] CARECOORD Normal [facility] CBC W Auto Differential pane l (Bld)on 08-02-2024 Basophils (Bld) [#/Vol] 0.0 10*3/uL 0.0 - 0.2 10*3/uL [facility] Basophils/100 WBC (Bld) 0.1 % 0.0 - 2.0 % [facility] Eosinophils (Bld) [#/Vol] 0.0 10*3/uL 0.0 - 0.5 10*3/uL [facility] Eosinophils/100 WBC (Bld) 0.4 % 0.0 - 6.0 % [facility] Erythrocyte distribution width (RBC) [Ratio] 17.8 % High 11.5 - 15.0 % [facility] Hematocrit (Bld) [Volume fraction] 24.7 % Low 35.0 - 47.0 % [facility] Hemoglobin (Bld) [Mass/Vol] 7.8 g/dL Low 11.7 - 16.0 g/dL [facility] Immature granulocytes (Bld) [#/Vol] 0.1 10*3/uL High NINF - 0.1 10*3/uL [facility] Immature granulocytes/100 WBC (Bld) 0.6 % 0.0 - 2.0 % [facility] Interpretation and review of laboratory results Abnormal [facility] Lymphocytes (Bld) [#/Vol] 0.4 10*3/uL Low 1.0 - 4.3 10*3/uL [facility] Lymphocytes/100 WBC (Bld) 4.5 % Low 15.0 - 45.0 % [facility] MCH (RBC) [Entitic mass] 28.4 pg 26.0 - 34.0 pg [facility] MCHC (RBC) [Mass/Vol] 31.6 % 30.5 - 36.0 % [facility] MCV (RBC) [Entitic vol] 89.8 fL 77.0 - 99.0 fL [facility] Monocytes (Bld) [#/Vol] 0.2 10*3/uL 0.0 - 0.9 10*3/uL [facility] Monocytes/100 WBC (Bld) 2.1 % Low 5.0 - 13.0 % [facility] Neutrophils (Bld) [#/Vol] 9.0 10*3/uL High 1.8 - 7.5 10*3/uL [facility] Neutrophils/100 WBC (Bld) 92.3 % High 38.0 - 82.0 % [facility] Nucleated RBC/100 WBC (Bld) [Ratio] 0.0 % [facility] [employer] Platelet mean volume (Bld) [Entitic vol] 10.4 fL 9.0 - 12.7 fL [facility] Platelets (Bld) [#/Vol] 177 10*3/uL 140 - 440 10*3/uL [facility] RBC (Bld) [#/Vol] 2.75 10*6/uL Low 3.80 - 5.2 0 10*6/uL [facility] WBC (Bld) [#/Vol] 9.8 10*3/uL 3.6 - 10.7 10*3/uL [facility] CBC WITH AUTO DIFFERENTIALon 08-02-2024 Basophils (Bld) [#/Vol] 0.0 10*3/uL Normal 0.0-0.2 [facility] Comment on above: Performed By: #### L [id number] ####Assembly Machine Tender: MARY SOTELO ([id number])[facility])[address] [place] [address] Basophils/100 WBC (Bld) 0.1 % Normal 0.0-2.0 [facility] Comment on above: Performed By: #### L [id number] ####Assembly Machine Tender: MARY SOTELO ([id number])[facility] ([facility])[address] [place] [address] Eosinophils (Bld) [#/Vol] 0.0 10*3/uL Normal 0.0-0.5 [facility] Comment on above: Performed By: #### L [id number] ####Assembly Machine Tender: MARY SOTELO ([id number])[facility])[address] [place] [address] Eosinophils/100 WBC (Bld) 0.4 % Normal 0.0-6.0 [facility] Comment on above: Performed By: #### L [id number] ####Assembly Machine Tender: MARY SOTELO ([id number])[facility])[address] [place] [address] Erythrocyte distribution width (RBC) [Ratio] 17.8 % High 11.5-15.0 [facility] Comment on above: Performed By: #### L [id number] ####Assembly Machine Tender: MARY [id number])[facility] [address] Hematocrit (Bld) [Volume fraction] 24.7 % Low 35.0-47.0 [facility] Comment on above: Performed By: #### L [id number] ####Assembly Machine Tender: MARY SOTELO ([id number])[facility])[address] [place] [address] Hemoglobin (Bld) [Mass/Vol] 7.8 g/dL Low 11.7-16.0 [facility] Comment on above: Performed By: #### L [id number] ####Assembly Machine Tender: MARY SOTELO ([id number])[facility])[address] [place] [address] IMMATURE GRANS % 0.6 % Normal 0.0-2.0 [facility] Comment on above: Performed By: #### L [id number] ####Assembly Machine Tender: MARY SOTELO ([id number])[facility])[address] [place] [address] IMMATURE GRANS ABSOLUTE 0.1 10*3/uL High <0.1 [facility] Comment on above: Performed By: #### L [id number] ####Assembly Machine Tender: MARY SOTELO ([id number])[facility])[address] [place] [address] Lymphocytes (Bld) [#/Vol] 0.4 10*3/uL Low 1.0-4.3 [facility] Comment on above: Performed By: #### L [id number] ####Assembly Machine Tender: MARY SOTELO ([id number])[facility])[address] [place] [address] Lymphocytes/100 WBC (Bld) 4.5 % Low 15.0-45.0 [facility] Comment on above: Performed By: #### L [id number] ####Assembly Machine Tender: MARY SOTELO ([id number])[facility])[address] [place] [address] MCH (RBC) [Entitic mass] 28.4 pg Normal 26.0-34.0 [facility] Comment on above: Performed By: #### L [id number] ####Assembly Machine Tender: MARY SOTELO ([id number])[facility])[address] [place] [address] MCHC 31.6 % Normal 30.5-36.0 [facility] Comment on above: Performed By: #### L [id number] ####Assembly Machine Tender: MARY SOTELO ([id number])[facility])[address] [place] [address] MCV (RBC) [Entitic vol] 89.8 fL Normal 77.0-99.0 [facility] Comment on above: Performed By: #### L [id number] ####Assembly Machine Tender: MARY SOTELO ([id number])[address] Monocytes (Bld) [#/Vol] 0.2 10*3/uL Normal 0.0-0.9 [facility] Comment on above: Performed By: #### L [id number] ####Assembly Machine Tender: MARY SOTELO ([id number])[facility])[address] [place] [address] Monocytes/100 WBC (Bld) 2.1 % Low 5.0-13.0 [facility] Comment on above: Performed By: #### L [id number] ####Assembly Machine Tender: MARY SOTELO ([id number])[facility])[address] [place] [address] NEUTROPHILS ABSOLUTE 9.0 10*3/uL High 1.8-7.5 [facility] Comment on above: Performed By: #### L [id number] ####Assembly Machine Tender: MARY SOTELO ([id number])[facility])[address] [place] [address] Neutrophils/100 WBC (Bld) 92.3 % High 38.0-82.0 [facility] Comment on above: Performed By: #### L [id number] ####Assembly Machine Tender: MARY [id number])[facility] ([facility])[address] [place] [address] NRBC 0.0 /100 WBCs Normal 0.0-2.0 [facility] Comment on above: Performed By: #### L [id number] ####Assembly Machine Tender: MARY SOTELO ([id number])[facility])[address] [place] [address] Platelet mean volume (Bld) [Entitic vol] 10.4 fL Normal 9.0-12.7 [facility] Comment on above: Performed By: #### L [id number] ####Assembly Machine Tender: MARY SOTELO ([id number])[facility])[address] [place] [address] Platelets (Bld) [#/Vol] 177 10*3/uL Normal 140-440 [facility] Comment on above: Performed By: #### L [id number] ####Assembly Machine Tender: MARY SOTELO ([id number])[facility] ([facility])[address] [place] [address] RBC (Bld) [#/Vol] 2.75 10*6/uL Low 3.80-5.20 [facility] Comment on above: Performed By: #### L [id number] ####Assembly Machine Tender: MARY SOTELO ([id number])[facility])[address] [place] [address] WBC (Bld) [#/Vol] 9.8 10*3/uL Normal 3.6-10.7 [facility] Comment on above: Performed By: #### L [id number] ####Assembly Machine Tender: MARY SOTELO ([id number])[facility])[address] [place] [address] Calcium.ionized [Moles/Vol]o n 08-02-2024 Calcium.ionized (Bld) [Moles/Vol] 4.30 mg/dL 4.30 - 5.20 mg/dL [facility] Interpretation and review of laboratory results Normal [facility] PH, IONIZED CALCIUM 7.36 7.31 - 7.46 [facility] ECG 12-LEADon 08-02-2024 ECG 12-LEAD IMPRESSION: Unclear atrial rhythm - consider accelerated junctional Right bundle branch block Electronically Signed On 08-02-2024 08:53:44 EDT by Khai Duong Normal [facility] Laboratory - Chemistry and C hemistry - challengeon 08-02-2024 Glucose [Mass/Vol] 211 mg/dL High 70 - 100 mg/dL [facility] Glucose [Mass/Vol] 202 mg/dL High 70 - 100 mg/dL [facility] Glucose [Mass/Vol] 180 mg/dL High 70 - 100 mg/dL [facility] Magnesium [Mass/Vol] 2.3 mg/dL 1.6 - 2 .3 mg/dL [facility] Glucose [Mass/Vol] 217 mg/dL High 70 - 100 mg/dL [facility] MAGNESIUMon 08-02-2024 Magnesium [Mass/Vol] 2.3 mg/dL Normal 1.6-2.3 [facility] Comment on above: Performed By: #### L [id number], LAB15, [id number] ####Assembly Machine Tender: MARY SOTELO ([id number])[facility] ([address] No Panel Informationon 08-02 Interpretation and review of laboratory results Abnormal [facility] Interpretation and review of laboratory results Abnormal [facility] CV EPIPHANY [facility] Interpretation and review of laboratory results Abnormal [facility] Interpretation and review of laboratory results Normal [facility] Interpretation and review of laboratory results Abnormal [facility] No Panel InformationOrdered By: Khai Duong on 08-02-2024 P Sarepta 0 degrees [facility] [employer] Work Phone: MS Interval 0 ms [facility] [employer] Work Phone: QRS Sarepta -118 degrees [facility] [employer] Work Phone: QRSD Interval 145 ms [facility] [employer] Work Phone: QT Interval 477 ms [facility] [employer] Work Phone: QTC Interval 528 ms [facility] [employer] Work Phone: T Wave Sarepta 36 degrees [employer] Work Phone: [facility] Work Phone: PHOSPHORUSon 08-02-2024 Phosphate [Mass/Vol] 3.0 mg/dL Normal 2.5-4.5 [facility] Comment on above: Performed By: #### L AB113, LAB15, [id number] ####Assembly Machine Tender: MARY SOTELO ([id number])[facility])[address] [place] [address] Phosphate [Moles/Vol]on 07-06 Phosphate [Mass/Vol] 3.0 mg/dL 2.5 - 4 .5 mg/dL [facility] Progress Noteon 08-02-2024 Progress Note Normal [facility] Progress Note Normal [facility] Progress Note Normal [facility] Progress Note Normal [facility] Progress Note Normal [facility] Progress Note Normal [facility] Vital signsOrdered By: Khai Duong on 08-02-2024 Heart rate 73 /min bpm [facility] [employer] Work Phone: CALCIUM, IONIZEDon CALCIUM IONIZED 4.10 mg/dL Low 4.30-5.[address] [facility] Comment on above: Performed By: #### L [id number] ####Assembly Machine Tender: MARY SOTELO ([id number])[facility])[address] [place] [address] PH, IONIZED CALCIUM 7.38 Normal 7.31-7.46 [facility] Comment on above: Performed By: #### L AB54 ####Assembly Machine Tender: MARY SOTELO ([id number])[facility])[address] [place] [address] CALCIUM IONIZED 4.30 mg/dL Normal 4.30-5.20 [facility] Comment on above: Performed By: #### L AB54 ####Assembly Machine Tender: MARY SOTELO ([id number])[facility])[address] [place] [address] PH, IONIZED CALCIUM 7.32 Normal 7.31-7.46 [facility] Comment on above: Performed By: #### L AB54 ####Assembly Machine Tender: MARY SOTELO ([id number])[facility] ([facility])[address] [place] [address] CALCIUM IONIZED 4.50 mg/dL Normal 4.30-5.20 [facility] Comment on above: Performed By: #### L AB54 ####Assembly Machine Tender: MARY SOTELO ([id number])[facility] [place] [address] PH, IONIZED CALCIUM 7.31 Normal 7.31-7.46 [facility] Comment on above: Performed By: #### L AB54 ####Assembly Machine Tender: MARY SOTELO ([id number])[facility] [place] [address] CBC W Auto Differential pane l (Bld)on 08-01-2024 Basophils (Bld) [#/Vol] 0.0 10*3/uL 0.0 - 0.2 10*3/uL [facility] Basophils/100 WBC (Bld) 0.1 % 0.0 - 2.0 % [facility] Eosinophils (Bld) [#/Vol] 0.1 10*3/uL 0.0 - 0.5 10*3/uL [facility] Eosinophils/100 WBC (Bld) 0.7 % 0.0 - 6.0 % [facility] [employer] Erythrocyte distribution width (RBC) [Ratio] 17.1 % High 11.5 - 15.0 % [facility] Hematocrit (Bld) [Volume fraction] 25.9 % Low 35.0 - 47.0 % [facility] [employer] Hemoglobin (Bld) [Mass/Vol] 8.3 g/dL Low 11.7 - 16.0 g/dL [facility] Immature granulocytes (Bld) [#/Vol] 0.0 10*3/uL NINF - 0.1 10*3/uL [facility] [employer] Immature granulocytes/100 WBC (Bld) 0.3 % 0.0 - 2.0 % [facility] Interpretation and review of laboratory results Abnormal [facility] [employer] Lymphocytes (Bld) [#/Vol] 1.0 10*3/uL 1.0 - 4.3 10*3/uL [facility] [employer] Lymphocytes/100 WBC (Bld) 9.9 % Low 15.0 - 45.0 % [facility] [employer] MCH (RBC) [Entitic mass] 28.2 pg 26.0 - 34.0 pg [facility] MCHC (RBC) [Mass/Vol] 32.0 % 30.5 - 36.0 % [facility] [employer] MCV (RBC) [Entitic vol] 88.1 fL 77.0 - 99.0 fL [facility] [employer] Monocytes (Bld) [#/Vol] 0.5 10*3/uL 0.0 - 0.9 10*3/uL [facility] [employer] Monocytes/100 WBC (Bld) 4.9 % Low 5.0 - 13.0 % [facility] [employer] Neutrophils (Bld) [#/Vol] 8.7 10*3/uL High 1.8 - 7.5 10*3/uL [facility] [employer] Neutrophils/100 WBC (Bld) 84.1 % High 38.0 - 82.0 % [facility] [employer] Nucleated RBC/100 WBC (Bld) [Ratio] 0.0 % [facility] [employer] Platelet mean volume (Bld) [Entitic vol] 11.0 fL 9.0 - 12.7 fL [facility] [employer] Platelets (Bld) [#/Vol] 156 10*3/uL 140 - 440 10*3/uL [facility] RBC (Bld) [#/Vol] 2.94 10*6/uL Low 3.80 - 5.2 0 10*6/uL [facility] [employer] WBC (Bld) [#/Vol] 10.4 10*3/uL 3.6 - 10.7 10*3/uL [facility] CBC WITH AUTO DIFFERENTIALon 08-01-2024 Basophils (Bld) [#/Vol] 0.0 10*3/uL Normal 0.0-0.2 [facility] Comment on above: Performed By: #### L [id number] ####Assembly Machine Tender: MARY SOTELO ([id number])[address] Basophils/100 WBC (Bld) 0.1 % Normal 0.0-2.0 [facility] Comment on above: Performed By: #### L [id number] ####Assembly Machine Tender: MARY SOTELO ([id number])[facility])[address] [place] [address] Eosinophils (Bld) [#/Vol] 0.1 10*3/uL Normal 0.0-0.5 [facility] Comment on above: Performed By: #### L [id number] ####Assembly Machine Tender: MARY SOTELO ([id number])[facility])[address] [place] [address] Eosinophils/100 WBC (Bld) 0.7 % Normal 0.0-6.0 [facility] Comment on above: Performed By: #### L [id number] ####Assembly Machine Tender: MARY SOTELO ([id number])[facility])[address] [place] [address] Erythrocyte distribution width (RBC) [Ratio] 17.1 % High 11.5-15.0 [facility] Comment on above: Performed By: #### L [id number] ####Assembly Machine Tender: MARY SOTELO ([id number])[facility])[address] [place] [address] Hematocrit (Bld) [Volume fraction] 25.9 % Low 35.0-47.0 [facility] Comment on above: Performed By: #### L [id number] ####Assembly Machine Tender: MARY SOTELO ([id number])[facility])[address] [place] [address] Hemoglobin (Bld) [Mass/Vol] 8.3 g/dL Low 11.7-16.0 [facility] Comment on above: Performed By: #### L [id number] ####Assembly Machine Tender: MARY SOTELO ([id number])[facility])[address] [place] [address] IMMATURE GRANS % 0.3 % Normal 0.0-2.0 [facility] Comment on above: Performed By: #### L [id number] ####Assembly Machine Tender: MARY SOTELO ([id number])[facility])[address] [place] [address] IMMATURE GRANS ABSOLUTE 0.0 10*3/uL Normal <0.1 [facility] Comment on above: Performed By: #### L [id number] ####Assembly Machine Tender: MARY SOTELO ([id number])[facility])[address] [place] [address] Lymphocytes (Bld) [#/Vol] 1.0 10*3/uL Normal 1.0-4.3 [facility] Comment on above: Performed By: #### L [id number] ####Assembly Machine Tender: MARY SOTELO ([id number])[address] Lymphocytes/100 WBC (Bld) 9.9 % Low 15.0-45.0 [facility] Comment on above: Performed By: #### L [id number] ####Assembly Machine Tender: MARY SOTELO ([id number])[facility])[address] [place] [address] MCH (RBC) [Entitic mass] 28.2 pg Normal 26.0-34.0 [facility] Comment on above: Performed By: #### L [id number] ####Assembly Machine Tender: MARY SOTELO ([id number])[address] MCHC 32.0 % Normal 30.5-36.0 [facility] Comment on above: Performed By: #### L [id number] ####Assembly Machine Tender: MARY SOTELO ([id number])[address] MCV (RBC) [Entitic vol] 88.1 fL Normal 77.0-99.0 [facility] Comment on above: Performed By: #### L [id number] ####Assembly Machine Tender: MARY SOTELO ([id number])[address] [place] [address] [place] Monocytes (Bld) [#/Vol] 0.5 10*3/uL Normal 0.0-0.9 [facility] Comment on above: Performed By: #### L [id number] ####Assembly Machine Tender: MARY SOTELO ([id number])[facility] ([facility])[address] [place] [address] Monocytes/100 WBC (Bld) 4.9 % Low 5.0-13.0 [facility] Comment on above: Performed By: #### L [id number] ####Assembly Machine Tender: MARY SOTELO ([id number])[facility])[address] [place] [address] NEUTROPHILS ABSOLUTE 8.7 10*3/uL High 1.8-7.5 [facility] Comment on above: Performed By: #### L [id number] ####Assembly Machine Tender: MARY SOTELO ([id number])[facility] ([facility])[address] [place] [address] Neutrophils/100 WBC (Bld) 84.1 % High 38.0-82.0 [facility] Comment on above: Performed By: #### L [id number] ####Assembly Machine Tender: MARY SOTELO ([id number])[facility] ([facility])[address] [place] [address] NRBC 0.0 /100 WBCs Normal 0.0-2.0 [facility] Comment on above: Performed By: #### L [id number] ####Assembly Machine Tender: MARY SOTELO ([id number])[facility] ([facility])[address] [place] [address] Platelet mean volume (Bld) [Entitic vol] 11.0 fL Normal 9.0-12.7 [facility] Comment on above: Performed By: #### L [id number] ####Assembly Machine Tender: MARY SOTELO ([id number])[facility] ([facility])[address] [place] [address] [place] Platelets (Bld) [#/Vol] 156 10*3/uL Normal 140-440 [facility] Comment on above: Performed By: #### L [id number] ####Assembly Machine Tender: MARY SOTELO ([id number])[facility])[address] [place] [address] RBC (Bld) [#/Vol] 2.94 10*6/uL Low 3.80-5.20 [facility] Comment on above: Performed By: #### L [id number] ####Assembly Machine Tender: MARY SOTELO ([id number])[facility] ([facility])[address] [place] [address] WBC (Bld) [#/Vol] 10.4 10*3/uL Normal 3.6-10.7 [facility] Comment on above: Performed By: #### L [id number] ####Assembly Machine Tender: MARY SOTELO ([id number])[address] Calcium.ionized [Moles/Vol]o n 08-01-2024 Calcium.ionized (Bld) [Moles/Vol] 4.10 mg/dL Low 4.30 - 5.20 mg/dL [facility] Interpretation and review of laboratory results Abnormal [facility] PH, IONIZED CALCIUM 7.38 7.31 - 7.46 [facility] Calcium.ionized (Bld) [Moles/Vol] 4.30 mg/dL 4.30 - 5.20 mg/dL [facility] Interpretation and review of laboratory results Normal [facility] PH, IONIZED CALCIUM 7.32 7.31 - 7.46 [facility] Calcium.ionized (Bld) [Moles/Vol] 4.50 mg/dL 4.30 - 5.20 mg/dL [facility] Interpretation and review of laboratory results Normal [facility] PH, IONIZED CALCIUM 7.31 7.31 - 7.46 [facility] IDNon 08-01-2024 IDN Normal [facility] Laboratory - Chemistry and C hemistry - challengeon 08-01-2024 Glucose [Mass/Vol] 192 mg/dL High 70 - 100 mg/dL [facility] Glucose [Mass/Vol] 170 mg/dL High 70 - 100 mg/dL [facility] Glucose [Mass/Vol] 166 mg/dL High 70 - 100 mg/dL [facility] Glucose [Mass/Vol] 120 mg/dL High 70 - 100 mg/dL [facility] Glucose [Mass/Vol] 161 mg/dL High 70 - 100 mg/dL [facility] No Panel Informationon 08-01 Interpretation and review of laboratory results Abnormal [facility] Interpretation and review of laboratory results Abnormal [facility] Interpretation and review of laboratory results Abnormal [facility] Interpretation and review of laboratory results Abnormal [facility] Interpretation and review of laboratory results Abnormal [facility] Progress Noteon 08-01-2024 Progress Note Normal [facility] Progress [facility] Progress Note Normal [facility] RENAL FUNCTION PANELon 08-01 Albumin [Mass/Vol] 2.1 g/dL Low 3.5-5.0 [facility] Comment on above: Performed By: #### L [id number] ####Assembly Machine Tender: MARY SOTELO ([id number])[facility])[address] [place] [address] Anion gap [Moles/Vol] 3 mmol/L Normal 3-13 [facility] Comment on above: Performed By: #### L [id number] ####Assembly Machine Tender: MARY SOTELO ([id number])[facility] ([facility])[address] [place] [address] Calcium [Mass/Vol] 7.2 mg/dL Low 8.4-10.4 [facility] Comment on above: Performed By: #### L [id number] ####Assembly Machine Tender: MARY SOTELO ([id number])[facility] ([facility])[address] [place] [address] [place] Chloride [Moles/Vol] 106 mmol/L Normal 98-107 [facility] Comment on above: Performed By: #### L [id number] ####Assembly Machine Tender: MARY [id number])[facility] ([facility])[address] CO2 [Moles/Vol] 23 mmol/L Normal 22-30 [facility] Comment on above: Performed By: #### L [id number] ####Assembly Machine Tender: MARY SOTELO ([id number])[facility] ([facility])[address] [place] [address] Creatinine [Mass/Vol] 0.87 mg/dL Normal 0.52-1.04 [facility] Comment on above: Performed By: #### L [id number] ####Assembly Machine Tender: AMRY SOTELO ([id number])[facility] ([facility])[address] [place] [address] GLOMERULAR FILTRATION RATE ML/MIN/1.73 SQ M.PREDICTED 74.5 mL/min/1.73m*2 Normal >60.0 [facility] Comment on above: Result Comment: Calc ulation based on the Chronic Kidney Disease Epidemiology Collaboration (CKD-EPI) equation refit without adjustment for race Performed By: #### L [id number] ####Assembly Machine Tender: MARY SOTELO ([id number])[facility] [place] [address] Glucose [Mass/Vol] 170 mg/dL High 70-100 [facility] Comment on above: Performed By: #### L [id number] ####Assembly Machine Tender: MARY SOTELO ([id number])[facility] ([facility])[address] [place] [address] Phosphate [Mass/Vol] 2.3 mg/dL Low 2.5-4.5 [facility] Comment on above: Performed By: #### L [id number] ####Assembly Machine Tender: MARY SOTELO ([id number])[facility] ([facility])[address] [place] [address] [place] Potassium [Moles/Vol] 4.1 mmol/L Normal 3.5-5.1 [facility] Comment on above: Performed By: #### L [id number] ####Assembly Machine Tender: MARY SOTELO ([id number])[facility] ([facility])[address] [place] [address] [place] Sodium [Moles/Vol] 132 mmol/L Low 135-145 [facility] Comment on above: Performed By: #### L [id number] ####Assembly Machine Tender: MARY SOTELO ([id number])[facility] ([facility])[address] [place] [address] Urea nitrogen [Mass/Vol] 13 mg/dL Normal 7-17 [facility] Comment on above: Performed By: #### L [id number] ####Assembly Machine Tender: MARY SOTELO ([id number])[facility] ([facility])[address] [place] [address] Albumin [Mass/Vol] 2.0 g/dL Low 3.5-5.0 [facility] Comment on above: Performed By: #### L [id number] ####Assembly Machine Tender: MARY SOTELO ([id number])[facility] ([facility])[address] [place] [address] Anion gap [Moles/Vol] 2 mmol/L Low 3-13 [facility] Comment on above: Performed By: #### L [id number] ####Assembly Machine Tender: MARY SOTELO ([id number])[facility] ([facility])[address] [place] [address] Calcium [Mass/Vol] 7.4 mg/dL Low 8.4-10.4 [facility] Comment on above: Performed By: #### L [id number] ####Assembly Machine Tender: MARY SOTELO ([id number])[facility] ([facility])[address] [place] [address] [place] Chloride [Moles/Vol] 106 mmol/L Normal 98-107 [facility] Comment on above: Performed By: #### L [id number] ####Assembly Machine Tender: MARY SOTELO ([id number])[facility] ([facility])[address] [place] [address] [place] CO2 [Moles/Vol] 24 mmol/L Normal 22-30 [facility] Comment on above: Performed By: #### L [id number] ####Assembly Machine Tender: MARY SOTELO ([id number])[facility] [place] [address] Creatinine [Mass/Vol] 0.90 mg/dL Normal 0.52-1.04 [facility] Comment on above: Performed By: #### L [id number] ####Assembly Machine Tender: MARY SOTELO ([id number])[facility] [place] [address] [place] GLOMERULAR FILTRATION RATE ML/MIN/1.73 SQ M.PREDICTED 71.5 mL/min/1.73m*2 Normal >60.0 [facility] Comment on above: Result Comment: Calc ulation based on the Chronic Kidney Disease Epidemiology Collaboration (CKD-EPI) equation refit without adjustment for race Performed By: #### L [id number] ####Assembly Machine Tender: MARY SOTELO ([id number])[facility] [place] [address] Glucose [Mass/Vol] 119 mg/dL High 70-100 [facility] Comment on above: Performed By: #### L AB19 ####Assembly Machine Tender: MARY SOTELO ([id number])[facility] [place] [address] [place] Phosphate [Mass/Vol] 2.6 mg/dL Normal 2.5-4.5 [facility] Comment on above: Performed By: #### L AB19 ####Assembly Machine Tender: MARY SOTELO ([id number])[facility] [place] [address] [place] Potassium [Moles/Vol] 4.0 mmol/L Normal 3.5-5.1 [facility] Comment on above: Performed By: #### L [id number] ####Assembly Machine Tender: MARY SOTELO ([id number])[facility] ([facility])[address] [place] [address] [place] Sodium [Moles/Vol] 133 mmol/L Low 135-145 [facility] Comment on above: Performed By: #### L [id number] ####Assembly Machine Tender: MARY SOTELO ([id number])[facility] ([facility])[address] [place] [address] Urea nitrogen [Mass/Vol] 14 mg/dL Normal 7-17 [facility] Comment on above: Performed By: #### L [id number] ####Assembly Machine Tender: MARY SOTELO ([id number])[facility] ([facility])[address] [place] [address] Albumin [Mass/Vol] 2.1 g/dL Low 3.5-5.0 [facility] Comment on above: Performed By: #### L [id number] ####Assembly Machine Tender: MARY SOTELO ([id number])[facility] ([facility])[address] [place] [address] Anion gap [Moles/Vol] 3 mmol/L Normal 3-13 [facility] Comment on above: Performed By: #### L AB19 ####Assembly Machine Tender: MARY SOTELO ([id number])[facility] ([facility])[address] [place] [address] Calcium [Mass/Vol] 7.8 mg/dL Low 8.4-10.4 [facility] Comment on above: Performed By: #### L [id number] ####Assembly Machine Tender: MARY SOTELO ([id number])[facility] ([facility])[address] [place] [address] Chloride [Moles/Vol] 105 mmol/L Normal 98-107 [facility] Comment on above: Performed By: #### L [id number] ####Assembly Machine Tender: MARY SOTELO ([id number])[facility])[address] [place] [address] CO2 [Moles/Vol] 25 mmol/L Normal 22-30 [facility] Comment on above: Performed By: #### L AB19 ####Assembly Machine Tender: MARY SOTELO ([id number])[facility])[address] [place] [address] Creatinine [Mass/Vol] 0.85 mg/dL Normal 0.52-1.04 [facility] Comment on above: Performed By: #### L [id number] ####Assembly Machine Tender: MARY SOTELO ([id number])[facility] ([facility])[address] [place] [address] [place] GLOMERULAR FILTRATION RATE ML/MIN/1.73 SQ M.PREDICTED 76.6 mL/min/1.73m*2 Normal >60.0 Select [facility] Comment on above: Result Comment: Calc ulation based on the Chronic Kidney Disease Epidemiology Collaboration (CKD-EPI) equation refit without adjustment for race Performed By: #### L [id number] ####Assembly Machine Tender: MARY SOTELO ([id number])[facility] [place] [address] [place] Glucose [Mass/Vol] 161 mg/dL High 70-100 [facility] Comment on above: Performed By: #### L [id number] ####Assembly Machine Tender: MARY SOTELO ([id number])[facility] ([facility])[address] [place] [address] [place] Phosphate [Mass/Vol] 3.0 mg/dL Normal 2.5-4.5 [facility] Comment on above: Performed By: #### L [id number] ####Assembly Machine Tender: MARY SOTELO ([id number])[facility] ([facility])[address] [place] [address] [place] Potassium [Moles/Vol] 4.2 mmol/L Normal 3.5-5.1 [facility] Comment on above: Performed By: #### L [id number] ####Assembly Machine Tender: MARY SOTELO ([id number])[facility] ([facility])[address] [place] [address] [place] Sodium [Moles/Vol] 133 mmol/L Low 135-145 [facility] Comment on above: Performed By: #### L [id number] ####Assembly Machine Tender: MARY SOTELO ([id number])[facility])[address] [place] [address] [place] Urea nitrogen [Mass/Vol] 15 mg/dL Normal 7-17 [facility] Comment on above: Performed By: #### L [id number] ####Assembly Machine Tender: MARY SOTELO ([id number])[facility])[address] [place] [address] Renal function 2000 panelon 08-01-2024 Albumin [Mass/Vol] 2.1 g/dL Low 3.5 - 5.0 g/dL [facility] Anion gap [Moles/Vol] 3 mmol/L 3 - 13 mmol/L [facility] Calcium [Mass/Vol] 7.2 mg/dL Low 8.4 - 10. 4 mg/dL [facility] Chloride [Moles/Vol] 106 mmol/L 98 - 10 7 mmol/L [facility] CO2 [Moles/Vol] 23 mmol/L 22 - 30 mmol/L [facility] Creatinine [Mass/Vol] 0.87 mg/dL 0.52 - 1.04 mg/dL [facility] GFR/1.73 sq M.predicted (S/P/Bld) [Vol rate/Area] 74.5 mL/min - PINF [facility] [employer] Glucose [Mass/Vol] 170 mg/dL High 70 - 100 mg/dL [facility] Interpretation and review of laboratory results Abnormal [facility] Phosphate [Mass/Vol] 2.3 mg/dL Low 2.5 - 4 .5 mg/dL [facility] Potassium [Moles/Vol] 4.1 mmol/L 3.5 - 5.1 mmol/L [facility] Sodium [Moles/Vol] 132 mmol/L Low 135 - 145 mmol/L [facility] Urea nitrogen [Mass/Vol] 13 mg/dL 7 - 17 mg/dL [facility] Albumin [Mass/Vol] 2.0 g/dL Low 3.5 - 5.0 g/dL [facility] Anion gap [Moles/Vol] 2 mmol/L Low 3 - 13 mmol/L [facility] Calcium [Mass/Vol] 7.4 mg/dL Low 8.4 - 10. 4 mg/dL [facility] Chloride [Moles/Vol] 106 mmol/L 98 - 10 7 mmol/L [facility] [employer] CO2 [Moles/Vol] 24 mmol/L 22 - 30 mmol/L [facility] Creatinine [Mass/Vol] 0.90 mg/dL 0.52 - 1.04 mg/dL [facility] [employer] GFR/1.73 sq M.predicted (S/P/Bld) [Vol rate/Area] 71.5 mL/min - PINF [facility] Glucose [Mass/Vol] 119 mg/dL High 70 - 100 mg/dL [facility] Interpretation and review of laboratory results Abnormal [facility] Phosphate [Mass/Vol] 2.6 mg/dL 2.5 - 4 .5 mg/dL [facility] Potassium [Moles/Vol] 4.0 mmol/L 3.5 - 5.1 mmol/L [facility] Sodium [Moles/Vol] 133 mmol/L Low 135 - 145 mmol/L [facility] Urea nitrogen [Mass/Vol] 14 mg/dL 7 - 17 mg/dL [facility] Albumin [Mass/Vol] 2.1 g/dL Low 3.5 - 5.0 g/dL [facility] Anion gap [Moles/Vol] 3 mmol/L 3 - 13 mmol/L [facility] Calcium [Mass/Vol] 7.8 mg/dL Low 8.4 - 10. 4 mg/dL [facility] Chloride [Moles/Vol] 105 mmol/L 98 - 10 7 mmol/L [facility] CO2 [Moles/Vol] 25 mmol/L 22 - 30 mmol/L [facility] Creatinine [Mass/Vol] 0.85 mg/dL 0.52 - 1.04 mg/dL [facility] GFR/1.73 sq M.predicted (S/P/Bld) [Vol rate/Area] 76.6 mL/min - PINF [facility] Glucose [Mass/Vol] 161 mg/dL High 70 - 100 mg/dL [facility] Interpretation and review of laboratory results Abnormal [facility] Phosphate [Mass/Vol] 3.0 mg/dL 2.5 - 4 .5 mg/dL [facility] Potassium [Moles/Vol] 4.2 mmol/L 3.5 - 5.1 mmol/L [facility] Sodium [Moles/Vol] 133 mmol/L Low 135 - 145 mmol/L [facility] Urea nitrogen [Mass/Vol] 15 mg/dL 7 - 17 mg/dL [facility] ABO and Rh group Confirm Nom (Bld)on 07-31-2024 ABO group Nom (Bld) O [facility] D Ag Ql (RBC) Positive [facility] BLOOD GAS ARTERIALon 024 Base excess Calc (Bld) [Moles/Vol] -0.9000 mmol/L Normal -3.0-3.0 [facility] Comment on above: Performed By: #### L [id number] ####Assembly Machine Tender: MARY SOTELO ([id number])[facility])[address] [place] [address] CO2 [Moles/Vol] 26.4 mmol/L Normal 23.0-27.0 [facility] Comment on above: Performed By: #### L [id number] ####Assembly Machine Tender: MARY SOTELO ([id number])[facility] ([facility])[address] [place] [address] HCO3 (Bld) [Moles/Vol] 25.0 mmol/L Normal 21.0-25.0 [facility] Comment on above: Performed By: #### L [id number] ####Assembly Machine Tender: MARY SOTELO ([id number])[facility])[address] [place] [address] Hemoglobin (Bld) [Mass/Vol] 7.1 g/dL Normal Screen only [facility] Comment on above: Performed By: #### L [id number] ####Assembly Machine Tender: MARY SOTELO ([id number])[facility])[address] [place] [address] OXYGEN SATURATION (%) IN ARTERIAL BLOOD 98.0 % Normal 95.0-100.0 [facility] Comment on above: Performed By: #### L [id number] ####Assembly Machine Tender: MARY SOTELO ([id number])[facility])[address] [place] [address] PCO2 ARTERIAL 47.9 mm Hg High >35.0-<45.0 [facility] Comment on above: Performed By: #### L [id number] ####Assembly Machine Tender: MARY SOTELO ([id number])[facility])[address] [place] [address] PH ARTERIAL 7.335 Low 7.350-7.450 [facility] Comment on above: Performed By: #### L [id number] ####Assembly Machine Tender: MARY SOTELO ([id number])[facility] [place] [address] PO2 ARTERIAL 143.8 mm Hg High 80.0-100.0 [facility] Comment on above: Performed By: #### L [id number] ####Assembly Machine Tender: MARY SOTELO ([id number])[facility] ([facility])[address] [place] [address] SOURCE OF OXYGEN Nasal cannula Normal [facility] Comment on above: Performed By: #### L [id number] ####Assembly Machine Tender: MARY SOTELO ([id number])[facility] ([facility])[address] [place] [address] BLOOD TYPE AND SCREEN GELon 07-31-2024 ABO GROUPING O Normal [facility] Comment on above: Performed By: #### L [id number] ####Assembly Machine Tender: MARY SOTELO ([id number])[facility] ([facility])[address] [place] [address] RH TYPE IN BLOOD Positive Normal [facility] Comment on above: Performed By: #### L [id number] ####Assembly Machine Tender: MARY SOTELO ([id number])[facility] ([facility])[address] [place] [address] Blood type and Crossmatch pa eunice (Bld)on 07-31-2024 ABO group Nom (Bld) O [facility] Blood group antibody screen GEL Ql Negative [facility] D Ag Ql (RBC) Positive [facility] CALCIUM, IONIZEDon 4 CALCIUM IONIZED 4.70 mg/dL Normal 4.30-5.20 [facility] Comment on above: Performed By: #### L AB54 ####Assembly Machine Tender: MARY SOTELO ([id number])[facility])[address] [place] [address] PH, IONIZED CALCIUM 7.31 Normal 7.31-7.46 [facility] Comment on above: Performed By: #### L AB54 ####Assembly Machine Tender: MARY SOTELO ([id number])[facility])[address] [place] [address] CALCIUM IONIZED 4.80 mg/dL Normal 4.30-5.20 [facility] Comment on above: Performed By: #### L AB54 ####Assembly Machine Tender: MARY SOTELO ([id number])[facility])[address] [place] [address] PH, IONIZED CALCIUM 7.36 Normal 7.31-7.46 [facility] Comment on above: Performed By: #### L AB54 ####Assembly Machine Tender: MARY SOTELO ([id number])[facility])[address] [place] [address] CALCIUM IONIZED 4.90 mg/dL Normal 4.30-5.20 [facility] Comment on above: Performed By: #### L AB54 ####Assembly Machine Tender: MARY SOTELO ([id number])[facility])[address] [place] [address] PH, IONIZED CALCIUM 7.35 Normal 7.31-7.46 [facility] Comment on above: Performed By: #### L AB54 ####Assembly Machine Tender: MARY SOTELO ([id number])[facility])[address] [place] [address] CALCIUM IONIZED 4.80 mg/dL Normal 4.30-5.20 [facility] Comment on above: Performed By: #### L AB54 ####Assembly Machine Tender: MARY SOTELO ([id number])[facility])[address] [place] [address] PH, IONIZED CALCIUM 7.38 Normal 7.31-7.46 [facility] Comment on above: Performed By: #### L AB54 ####Assembly Machine Tender: MARY SOTELO ([id number])[facility])[address] [place] [address] CBC (HEMOGRAM)on 07-31-2024 Erythrocyte distribution width (RBC) [Ratio] 15.2 % High 11.5-15.0 [facility] Comment on above: Performed By: #### L [id number] ####Assembly Machine Tender: MARY SOTELO ([id number])[facility])[address] [place] [address] Hematocrit (Bld) [Volume fraction] 21.6 % Low 35.0-47.0 [facility] Comment on above: Performed By: #### L [id number] ####Assembly Machine Tender: MARY SOTELO ([id number])[facility])[address] [place] [address] Hemoglobin (Bld) [Mass/Vol] 6.8 g/dL Critically low 11.7-16.0 [facility] Comment on above: Performed By: #### L [id number] ####Assembly Machine Tender: MARY SOTELO ([id number])[address] MCH (RBC) [Entitic mass] 28.7 pg Normal 26.0-34.0 [facility] Comment on above: Performed By: #### L [id number] ####Assembly Machine Tender: AMRY SOTELO ([id number])[facility])[address] [place] [address] MCHC 31.5 % Normal 30.5-36.0 [facility] Comment on above: Performed By: #### L [id number] ####Assembly Machine Tender: MARY SOTELO ([id number])[address] MCV (RBC) [Entitic vol] 91.1 fL Normal 77.0-99.0 [facility] Comment on above: Performed By: #### L [id number] ####Assembly Machine Tender: MARY SOTELO ([id number])[address] Platelet mean volume (Bld) [Entitic vol] 10.9 fL Normal 9.0-12.7 [facility] Comment on above: Performed By: #### L [id number] ####Assembly Machine Tender: MARY SOTELO ([id number])[facility] ([facility])[address] [place] [address] Platelets (Bld) [#/Vol] 158 10*3/uL Normal 140-440 [facility] Comment on above: Performed By: #### L [id number] ####Assembly Machine Tender: MARY SOTELO ([id number])[facility])[address] [place] [address] RBC (Bld) [#/Vol] 2.37 10*6/uL Low 3.80-5.20 [facility] Comment on above: Performed By: #### L [id number] ####Assembly Machine Tender: MARY SOTELO ([id number])[facility])[address] [place] [address] WBC (Bld) [#/Vol] 15.0 10*3/uL High 3.6-10.7 [facility] Comment on above: Performed By: #### L [id number] ####Assembly Machine Tender: MARY SOTELO ([id number])[facility] ([facility])[address] [place] [address] CBC W Auto Differential pane l (Bld)on 07-31-2024 Basophils (Bld) [#/Vol] 0.0 10*3/uL 0.0 - 0.2 10*3/uL [facility] Basophils/100 WBC (Bld) 0.1 % 0.0 - 2.0 % [facility] Eosinophils (Bld) [#/Vol] 0.0 10*3/uL 0.0 - 0.5 10*3/uL [facility] Eosinophils/100 WBC (Bld) 0.2 % 0.0 - 6.0 % [facility] Erythrocyte distribution width (RBC) [Ratio] 15.2 % High 11.5 - 15.0 % [facility] Hematocrit (Bld) [Volume fraction] 22.3 % Low 35.0 - 47.0 % [facility] Hemoglobin (Bld) [Mass/Vol] 7.1 g/dL Low 11.7 - 16.0 g/dL [facility] [employer] Immature granulocytes (Bld) [#/Vol] 0.0 10*3/uL NINF - 0.1 10*3/uL [facility] Immature granulocytes/100 WBC (Bld) 0.3 % 0.0 - 2.0 % [facility] [employer] Interpretation and review of laboratory results Abnormal [facility] Lymphocytes (Bld) [#/Vol] 0.6 10*3/uL Low 1.0 - 4.3 10*3/uL [facility] Lymphocytes/100 WBC (Bld) 4.7 % Low 15.0 - 45.0 % [facility] [employer] MCH (RBC) [Entitic mass] 29.6 pg 26.0 - 34.0 pg [facility] [employer] MCHC (RBC) [Mass/Vol] 31.8 % 30.5 - 36.0 % [facility] [employer] MCV (RBC) [Entitic vol] 92.9 fL 77.0 - 99.0 fL [facility] [employer] Monocytes (Bld) [#/Vol] 0.6 10*3/uL 0.0 - 0.9 10*3/uL [facility] Monocytes/100 WBC (Bld) 4.4 % Low 5.0 - 13.0 % [facility] Neutrophils (Bld) [#/Vol] 12.0 10*3/uL High 1.8 - 7.5 10*3/uL [facility] Neutrophils/100 WBC (Bld) 90.3 % High 38.0 - 82.0 % [facility] [employer] Nucleated RBC/100 WBC (Bld) [Ratio] 0.0 % [facility] [employer] Platelet mean volume (Bld) [Entitic vol] 10.7 fL 9.0 - 12.7 fL [facility] Platelets (Bld) [#/Vol] 146 10*3/uL 140 - 440 10*3/uL [facility] RBC (Bld) [#/Vol] 2.40 10*6/uL Low 3.80 - 5.2 0 10*6/uL [facility] WBC (Bld) [#/Vol] 13.3 10*3/uL High 3.6 - 10.7 10*3/uL [facility] CBC W Auto Differential pane l (Bld)Ordered By: Olamide Orozco on 07-31-2024 Basophils (Bld) [#/Vol] 0.0 10*3/uL 0.0 - 0.2 10*3/uL [facility] Basophils/100 WBC (Bld) 0.1 % 0.0 - 2.0 % [facility] Eosinophils (Bld) [#/Vol] 0.0 10*3/uL 0.0 - 0.5 10*3/uL [facility] Eosinophils/100 WBC (Bld) 0.2 % 0.0 - 6.0 % [facility] Erythrocyte distribution width (RBC) [Ratio] 15.1 % High 11.5 - 15.0 % [facility] Hematocrit (Bld) [Volume fraction] 22.9 % Low 35.0 - 47.0 % [facility] Hemoglobin (Bld) [Mass/Vol] 7.2 g/dL Low 11.7 - 16.0 g/dL [facility] Immature granulocytes (Bld) [#/Vol] 0.1 10*3/uL High NINF - 0.1 10*3/uL [facility] Immature granulocytes/100 WBC (Bld) 0.4 % 0.0 - 2.0 % [facility] Interpretation and review of laboratory results Abnormal [facility] Lymphocytes (Bld) [#/Vol] 0.5 10*3/uL Low 1.0 - 4.3 10*3/uL [facility] Lymphocytes/100 WBC (Bld) 3.6 % Low 15.0 - 45.0 % [facility] MCH (RBC) [Entitic mass] 28.9 pg 26.0 - 34.0 pg [facility] MCHC (RBC) [Mass/Vol] 31.4 % 30.5 - 36.0 % [facility] MCV (RBC) [Entitic vol] 92.0 fL 77.0 - 99.0 fL [facility] Monocytes (Bld) [#/Vol] 0.3 10*3/uL 0.0 - 0.9 10*3/uL [facility] Monocytes/100 WBC (Bld) 2.0 % Low 5.0 - 13.0 % [facility] Neutrophils (Bld) [#/Vol] 13.2 10*3/uL High 1.8 - 7.5 10*3/uL [facility] Neutrophils/100 WBC (Bld) 93.7 % High 38.0 - 82.0 % [facility] Nucleated RBC/100 WBC (Bld) [Ratio] 0.0 % [facility] Platelet mean volume (Bld) [Entitic vol] 10.5 fL 9.0 - 12.7 fL [facility] Platelets (Bld) [#/Vol] 135 10*3/uL Low 140 - 440 10*3/uL [facility] RBC (Bld) [#/Vol] 2.49 10*6/uL Low 3.80 - 5.2 0 10*6/uL [facility] WBC (Bld) [#/Vol] 14.0 10*3/uL High 3.6 - 10.7 10*3/uL [facility] CBC WITH AUTO DIFFERENTIALon 07-31-2024 Basophils (Bld) [#/Vol] 0.0 10*3/uL Normal 0.0-0.2 [facility] Comment on above: Performed By: #### L [id number] ####Assembly Machine Tender: MARY SOTELO ([id number])[facility])[address] [place] [address] Basophils/100 WBC (Bld) 0.1 % Normal 0.0-2.0 [facility] Comment on above: Performed By: #### L [id number] ####Assembly Machine Tender: MARY SOTELO ([id number])[facility])[address] [place] [address] Eosinophils (Bld) [#/Vol] 0.0 10*3/uL Normal 0.0-0.5 [facility] Comment on above: Performed By: #### L [id number] ####Assembly Machine Tender: MARY SOTELO ([id number])[facility])[address] [place] [address] Eosinophils/100 WBC (Bld) 0.2 % Normal 0.0-6.0 [facility] Comment on above: Performed By: #### L [id number] ####Assembly Machine Tender: MARY SOTELO ([id number])[facility])[address] [place] [address] Erythrocyte distribution width (RBC) [Ratio] 15.2 % High 11.5-15.0 [facility] Comment on above: Performed By: #### L [id number] ####Assembly Machine Tender: MARY SOTELO ([id number])[facility])[address] [place] [address] Hematocrit (Bld) [Volume fraction] 22.3 % Low 35.0-47.0 [facility] Comment on above: Performed By: #### L [id number] ####Assembly Machine Tender: MARY SOTELO ([id number])[facility])[address] [place] [address] Hemoglobin (Bld) [Mass/Vol] 7.1 g/dL Low 11.7-16.0 [facility] Comment on above: Performed By: #### L [id number] ####Assembly Machine Tender: MARY SOTELO ([id number])[facility])[address] [place] [address] IMMATURE GRANS % 0.3 % Normal 0.0-2.0 [facility] Comment on above: Performed By: #### L [id number] ####Assembly Machine Tender: MARY SOTELO ([id number])[facility])[address] [place] [address] IMMATURE GRANS ABSOLUTE 0.0 10*3/uL Normal <0.1 [facility] Comment on above: Performed By: #### L [id number] ####Assembly Machine Tender: MARY SOTELO ([id number])[facility])[address] [place] [address] Lymphocytes (Bld) [#/Vol] 0.6 10*3/uL Low 1.0-4.3 [facility] Comment on above: Performed By: #### L [id number] ####Assembly Machine Tender: MARY SOTELO ([id number])[facility])[address] [place] [address] Lymphocytes/100 WBC (Bld) 4.7 % Low 15.0-45.0 [facility] Comment on above: Performed By: #### L [id number] ####Assembly Machine Tender: MARY SOTELO ([id number])[facility])[address] [place] [address] MCH (RBC) [Entitic mass] 29.6 pg Normal 26.0-34.0 [facility] Comment on above: Performed By: #### L [id number] ####Assembly Machine Tender: MARY SOTELO ([id number])[facility])[address] [place] [address] MCHC 31.8 % Normal 30.5-36.0 [facility] Comment on above: Performed By: #### L [id number] ####Assembly Machine Tender: MARY SOTELO ([id number])[facility])[address] [place] [address] MCV (RBC) [Entitic vol] 92.9 fL Normal 77.0-99.0 [facility] Comment on above: Performed By: #### L [id number] ####Assembly Machine Tender: MARY SOTELO ([id number])[facility])[address] [place] [address] Monocytes (Bld) [#/Vol] 0.6 10*3/uL Normal 0.0-0.9 [facility] Comment on above: Performed By: #### L [id number] ####Assembly Machine Tender: MARY SOTELO ([id number])[facility])[address] [place] [address] Monocytes/100 WBC (Bld) 4.4 % Low 5.0-13.0 [facility] Comment on above: Performed By: #### L [id number] ####Assembly Machine Tender: MARY SOTELO ([id number])[facility])[address] [place] [address] NEUTROPHILS ABSOLUTE 12.0 10*3/uL High 1.8-7.5 [facility] Comment on above: Performed By: #### L [id number] ####Assembly Machine Tender: MARY SOTELO ([id number])[facility])[address] [place] [address] Neutrophils/100 WBC (Bld) 90.3 % High 38.0-82.0 [facility] Comment on above: Performed By: #### L [id number] ####Assembly Machine Tender: MARY SOTELO ([id number])[facility] ([facility])[address] [place] [address] NRBC 0.0 /100 WBCs Normal 0.0-2.0 [facility] Comment on above: Performed By: #### L [id number] ####Assembly Machine Tender: MARY SOTELO ([id number])[facility] ([facility])[address] [place] [address] Platelet mean volume (Bld) [Entitic vol] 10.7 fL Normal 9.0-12.7 [facility] Comment on above: Performed By: #### L [id number] ####Assembly Machine Tender: MARY SOTELO ([id number])[facility] ([facility])[address] [place] [address] Platelets (Bld) [#/Vol] 146 10*3/uL Normal 140-440 [facility] Comment on above: Performed By: #### L [id number] ####Assembly Machine Tender: MARY SOTELO ([id number])[facility] ([facility])[address] [place] [address] RBC (Bld) [#/Vol] 2.40 10*6/uL Low 3.80-5.20 [facility] Comment on above: Performed By: #### L [id number] ####Assembly Machine Tender: MARY SOTELO ([id number])[facility] ([facility])[address] [place] [address] WBC (Bld) [#/Vol] 13.3 10*3/uL High 3.6-10.7 [facility] Comment on above: Performed By: #### L [id number] ####Assembly Machine Tender: MARY SOTELO ([id number])[facility])[address] [place] [address] Basophils (Bld) [#/Vol] 0.0 10*3/uL Normal 0.0-0.2 [facility] Comment on above: Performed By: #### L [id number] ####Assembly Machine Tender: MARY SOTELO ([id number])[facility])[address] [place] [address] Basophils/100 WBC (Bld) 0.1 % Normal 0.0-2.0 [facility] Comment on above: Performed By: #### L [id number] ####Assembly Machine Tender: MARY SOTELO ([id number])[facility])[address] [place] [address] Eosinophils (Bld) [#/Vol] 0.0 10*3/uL Normal 0.0-0.5 [facility] Comment on above: Performed By: #### L [id number] ####Assembly Machine Tender: MARY SOTELO ([id number])[address] Eosinophils/100 WBC (Bld) 0.2 % Normal 0.0-6.0 [facility] Comment on above: Performed By: #### L [id number] ####Assembly Machine Tender: MARY SOTELO ([id number])[facility])[address] [place] [address] Erythrocyte distribution width (RBC) [Ratio] 15.1 % High 11.5-15.0 [facility] Comment on above: Performed By: #### L [id number] ####Assembly Machine Tender: MARY SOTELO ([id number])[address] Hematocrit (Bld) [Volume fraction] 22.9 % Low 35.0-47.0 [facility] Comment on above: Performed By: #### L [id number] ####Assembly Machine Tender: MARY SOTELO ([id number])[address] Hemoglobin (Bld) [Mass/Vol] 7.2 g/dL Low 11.7-16.0 [facility] Comment on above: Performed By: #### L [id number] ####Assembly Machine Tender: MARY SOTELO ([id number])[facility])[address] [place] [address] IMMATURE GRANS % 0.4 % Normal 0.0-2.0 [facility] Comment on above: Performed By: #### L [id number] ####Assembly Machine Tender: MARY SOTELO ([id number])[facility])[address] [place] [address] IMMATURE GRANS ABSOLUTE 0.1 10*3/uL High <0.1 [facility] Comment on above: Performed By: #### L [id number] ####Assembly Machine Tender: MARY SOTELO ([id number])[facility])[address] [place] [address] Lymphocytes (Bld) [#/Vol] 0.5 10*3/uL Low 1.0-4.3 [facility] Comment on above: Performed By: #### L [id number] ####Assembly Machine Tender: MARY SOTELO ([id number])[facility])[address] [place] [address] Lymphocytes/100 WBC (Bld) 3.6 % Low 15.0-45.0 [facility] Comment on above: Performed By: #### L [id number] ####Assembly Machine Tender: MARY SOTELO ([id number])[facility])[address] [place] [address] MCH (RBC) [Entitic mass] 28.9 pg Normal 26.0-34.0 [facility] Comment on above: Performed By: #### L [id number] ####Assembly Machine Tender: MARY SOTELO ([id number])[facility])[address] [place] [address] MCHC 31.4 % Normal 30.5-36.0 [facility] Comment on above: Performed By: #### L [id number] ####Assembly Machine Tender: MARY SOTELO ([id number])[facility])[address] [place] [address] MCV (RBC) [Entitic vol] 92.0 fL Normal 77.0-99.0 [facility] Comment on above: Performed By: #### L [id number] ####Assembly Machine Tender: MARY SOTELO ([id number])[facility])[address] [place] [address] Monocytes (Bld) [#/Vol] 0.3 10*3/uL Normal 0.0-0.9 [facility] Comment on above: Performed By: #### L [id number] ####Assembly Machine Tender: MARY SOTELO ([id number])[facility])[address] [place] [address] Monocytes/100 WBC (Bld) 2.0 % Low 5.0-13.0 [facility] Comment on above: Performed By: #### L [id number] ####Assembly Machine Tender: MARY SOTELO ([id number])[facility])[address] [place] [address] NEUTROPHILS ABSOLUTE 13.2 10*3/uL High 1.8-7.5 [facility] Comment on above: Performed By: #### L [id number] ####Assembly Machine Tender: MARY SOTELO ([id number])[facility])[address] [place] [address] Neutrophils/100 WBC (Bld) 93.7 % High 38.0-82.0 [facility] Comment on above: Performed By: #### L [id number] ####Assembly Machine Tender: MARY SOTELO ([id number])[facility])[address] [place] [address] NRBC 0.0 /100 WBCs Normal 0.0-2.0 [facility] Comment on above: Performed By: #### L [id number] ####Assembly Machine Tender: MARY SOTELO ([id number])[facility])[address] [place] [address] Platelet mean volume (Bld) [Entitic vol] 10.5 fL Normal 9.0-12.7 [facility] Comment on above: Performed By: #### L [id number] ####Assembly Machine Tender: MARY SOTELO ([id number])[facility] ([facility])[address] [place] [address] Platelets (Bld) [#/Vol] 135 10*3/uL Low 140-440 [facility] Comment on above: Performed By: #### L [id number] ####Assembly Machine Tender: MARY SOTELO ([id number])[facility] ([facility])[address] [place] [address] RBC (Bld) [#/Vol] 2.49 10*6/uL Low 3.80-5.20 [facility] Comment on above: Performed By: #### L [id number] ####Assembly Machine Tender: MARY SOTELO ([id number])[facility] ([facility])[address] [place] [address] WBC (Bld) [#/Vol] 14.0 10*3/uL High 3.6-10.7 [facility] Comment on above: Performed By: #### L [id number] ####Assembly Machine Tender: MARY SOTELO ([id number])[facility] ([facility])[address] [place] [address] CBC panel Auto (Bld)Ordered By: Akbar Warner on 07-31-2024 Erythrocyte distribution width (RBC) [Ratio] 15.2 % High 11.5 - 15.0 % [facility] Hematocrit (Bld) [Volume fraction] 21.6 % Low 35.0 - 47.0 % [facility] Hemoglobin (Bld) [Mass/Vol] 6.8 g/dL Critically low 11.7 - 16.0 g/dL [facility] Interpretation and review of laboratory results Abnormal [facility] MCH (RBC) [Entitic mass] 28.7 pg 26.0 - 34.0 pg [facility] MCHC (RBC) [Mass/Vol] 31.5 % 30.5 - 36.0 % [facility] MCV (RBC) [Entitic vol] 91.1 fL 77.0 - 99.0 fL [facility] Platelet mean volume (Bld) [Entitic vol] 10.9 fL 9.0 - 12.7 fL [facility] Platelets (Bld) [#/Vol] 158 10*3/uL 140 - 440 10*3/uL [facility] RBC (Bld) [#/Vol] 2.37 10*6/uL Low 3.80 - 5.2 0 10*6/uL [facility] WBC (Bld) [#/Vol] 15.0 10*3/uL High 3.6 - 10.7 10*3/uL [facility] Calcium.ionized [Moles/Vol]o n 07-31-2024 Calcium.ionized (Bld) [Moles/Vol] 4.70 mg/dL 4.30 - 5.20 mg/dL [facility] Interpretation and review of laboratory results Normal [facility] PH, IONIZED CALCIUM 7.31 7.31 - 7.46 [facility] Calcium.ionized (Bld) [Moles/Vol] 4.80 mg/dL 4.30 - 5.20 mg/dL [facility] Interpretation and review of laboratory results Normal [facility] PH, IONIZED CALCIUM 7.36 7.31 - 7.46 [facility] Calcium.ionized (Bld) [Moles/Vol] 4.90 mg/dL 4.30 - 5.20 mg/dL [facility] Interpretation and review of laboratory results Normal [facility] PH, IONIZED CALCIUM 7.35 7.31 - 7.46 [facility] Calcium.ionized (Bld) [Moles/Vol] 4.80 mg/dL 4.30 - 5.20 mg/dL [facility] Interpretation and review of laboratory results Normal [facility] PH, IONIZED CALCIUM 7.38 7.31 - 7.46 [facility] HEMOGLOBIN AND HEMATOCRIT, B LOODon 07-31-2024 Hematocrit (Bld) [Volume fraction] 25.4 % Low 35.0-47.0 [facility] Comment on above: Order Comment: Recom mend 1 hour post transfusion Performed By: #### L [id number] ####Assembly Machine Tender: MARY SOTELO ([id number])[facility] ([address] Hemoglobin (Bld) [Mass/Vol] 8.0 g/dL Low 11.7-16.0 [facility] Comment on above: Order Comment: Recom mend 1 hour post transfusion Performed By: #### L [id number] ####Assembly Machine Tender: MARY SOTELO ([id number])[facility] ([address] Hemoglobin (Bld) [Mass/Vol]o n 07-31-2024 Hematocrit (Bld) [Volume fraction] 25.4 % Low 35.0 - 47.0 % [facility] Interpretation and review of laboratory results Abnormal [facility] IDNon 07-31-2024 IDN Normal [facility] Laboratory - Chemistry and C hemistry - challengeon 07-31-2024 Glucose [Mass/Vol] 107 mg/dL High 70 - 100 mg/dL [facility] Glucose [Mass/Vol] 118 mg/dL High 70 - 100 mg/dL [facility] Glucose [Mass/Vol] 61 mg/dL Low 70 - 100 mg/dL [facility] Glucose [Mass/Vol] 127 mg/dL High 70 - 100 mg/dL [facility] Base excess Calc (Bld) [Moles/Vol] -0.9000 mmol/L -3.0 - 3.0 mmol/L [facility] CO2 (Bld) [Partial pressure] 47.9 mm[Hg] High - PINF [facility] CO2 [Moles/Vol] 26.4 mmol/L 23.0 - 27.0 mmol/L [facility] HCO3 (Bld) [Moles/Vol] 25.0 mmol/L 21.0 - 25.0 mmol/L [facility] Oxygen (Bld) [Partial pressure] 143.8 mm[Hg] High [facility] pH (Bld) 7.335 [pH] Low 7.350 - 7.450 [facility] Glucose [Mass/Vol] 177 mg/dL High 70 - 100 mg/dL [facility] Glucose [Mass/Vol] 237 mg/dL High 70 - 100 mg/dL [facility] Laboratory - Hematology and Cell countson 07-31-2024 Hemoglobin (Bld) [Mass/Vol] 8.0 g/dL Low 11.7 - 16.0 g/dL [facility] Hemoglobin (Bld) [Mass/Vol] 7.1 g/dL Screen only [facility] No Panel Informationon 07-31 Interpretation and review of laboratory results Abnormal [facility] Interpretation and review of laboratory results Abnormal [facility] Interpretation and review of laboratory results Abnormal [facility] Blood Expiration Date [id number] [facility] Crossmatch interpretation COMP [facility] Dispense Status [facility] Product Blood Type 5100 [facility] PRODUCT CODE [id number] [facility] ABO O [facility] Unit Number [id number] [facility] RH Positive [facility] Unit Volume 300 mL [facility] Interpretation and review of laboratory results Abnormal [facility] Interpretation and review of laboratory results Abnormal [facility] Source Of Oxygen Nasal cannula [facility] Interpretation and review of laboratory results Abnormal [facility] Interpretation and review of laboratory results Abnormal [facility] Progress Noteon 07-31-2024 Progress Note [facility] Progress [facility] Normal [facility] RENAL FUNCTION PANELon 07-31 Albumin [Mass/Vol] 1.9 g/dL Low 3.5-5.0 [facility] Comment on above: Performed By: #### L [id number] ####Assembly Machine Tender: MARY SOTELO ([id number])[address] Anion gap [Moles/Vol] 1 mmol/L Low 3-13 [facility] Comment on above: Performed By: #### L [id number] ####Assembly Machine Tender: MARY SOTELO ([id number])[facility])[address] [place] [address] Calcium [Mass/Vol] 8.2 mg/dL Low 8.4-10.4 [facility] Comment on above: Performed By: #### L [id number] ####Assembly Machine Tender: MARY SOTELO ([id number])[facility])[address] [place] [address] Chloride [Moles/Vol] 104 mmol/L Normal 98-107 [facility] Comment on above: Performed By: #### L [id number] ####Assembly Machine Tender: MARY SOTELO ([id number])[facility] ([facility])[address] [place] [address] CO2 [Moles/Vol] 25 mmol/L Normal 22-30 [facility] Comment on above: Performed By: #### L [id number] ####Assembly Machine Tender: MARY SOTELO ([id number])[facility])[address] [place] [address] Creatinine [Mass/Vol] 0.81 mg/dL Normal 0.52-1.04 [facility] Comment on above: Performed By: #### L [id number] ####Assembly Machine Tender: MARY SOTELO ([id number])[facility])[address] [place] [address] GLOMERULAR FILTRATION RATE ML/MIN/1.73 SQ M.PREDICTED 81.2 mL/min/1.73m*2 Normal >60.0 [facility] Comment on above: Result Comment: Calc ulation based on the Chronic Kidney Disease Epidemiology Collaboration (CKD-EPI) equation refit without adjustment for race Performed By: #### L [id number] ####Assembly Machine Tender: MARY SOTELO ([id number])[facility])[address] [place] [address] Glucose [Mass/Vol] 173 mg/dL High 70-100 [facility] Comment on above: Performed By: #### L [id number] ####Assembly Machine Tender: MARY SOTELO ([id number])[facility])[address] [place] [address] Phosphate [Mass/Vol] 3.1 mg/dL Normal 2.5-4.5 [facility] Comment on above: Performed By: #### L [id number] ####Assembly Machine Tender: MARY SOTELO ([id number])[facility])[address] [place] [address] Potassium [Moles/Vol] 3.9 mmol/L Normal 3.5-5.1 [facility] Comment on above: Performed By: #### L [id number] ####Assembly Machine Tender: MARY SOTELO ([id number])[facility] ([facility])[address] [place] [address] Sodium [Moles/Vol] 130 mmol/L Low 135-145 [facility] Comment on above: Performed By: #### L [id number] ####Assembly Machine Tender: MARY SOTELO ([id number])[facility] ([facility])[address] [place] [address] Urea nitrogen [Mass/Vol] 16 mg/dL Normal 7-17 [facility] Comment on above: Performed By: #### L [id number] ####Assembly Machine Tender: MARY SOTELO ([id number])[facility] ([facility])[address] [place] [address] Albumin [Mass/Vol] 1.9 g/dL Low 3.5-5.0 [facility] Comment on above: Performed By: #### L [id number] ####Assembly Machine Tender: MARY SOTELO ([id number])[facility] ([facility])[address] [place] [address] Anion gap [Moles/Vol] 2 mmol/L Low 3-13 [facility] Comment on above: Performed By: #### L AB19 ####Assembly Machine Tender: MARY SOTELO ([id number])[facility] ([facility])[address] [place] [address] Calcium [Mass/Vol] 8.7 mg/dL Normal 8.4-10.4 [facility] Comment on above: Performed By: #### L AB19 ####Assembly Machine Tender: MARY SOTELO ([id number])[facility] ([facility])[address] [place] [address] [place] Chloride [Moles/Vol] 105 mmol/L Normal 98-107 [facility] Comment on above: Performed By: #### L AB19 ####Assembly Machine Tender: MARY SOTELO ([id number])[facility] ([facility])[address] [place] [address] [place] CO2 [Moles/Vol] 25 mmol/L Normal 22-30 [facility] Comment on above: Performed By: #### L AB19 ####Assembly Machine Tender: MARY SOTELO ([id number])[facility])[address] [place] [address] Creatinine [Mass/Vol] 0.89 mg/dL Normal 0.52-1.04 [facility] Comment on above: Performed By: #### L AB19 ####Assembly Machine Tender: MARY SOTELO ([id number])[facility])[address] [place] [address] GLOMERULAR FILTRATION RATE ML/MIN/1.73 SQ M.PREDICTED 72.5 mL/min/1.73m*2 Normal >60.0 [facility] Comment on above: Result Comment: Calc ulation based on the Chronic Kidney Disease Epidemiology Collaboration (CKD-EPI) equation refit without adjustment for race Performed By: #### L AB19 ####Assembly Machine Tender: MARY SOTELO ([id number])[facility])[address] [place] [address] Glucose [Mass/Vol] 104 mg/dL High 70-100 [facility] Comment on above: Performed By: #### L AB19 ####Assembly Machine Tender: MARY SOTELO ([id number])[facility])[address] [place] [address] Phosphate [Mass/Vol] 3.2 mg/dL Normal 2.5-4.5 [facility] Comment on above: Performed By: #### L AB19 ####Assembly Machine Tender: MARY SOTELO ([id number])[facility])[address] [place] [address] Potassium [Moles/Vol] 3.7 mmol/L Normal 3.5-5.1 [facility] Comment on above: Performed By: #### L AB19 ####Assembly Machine Tender: MARY SOTELO ([id number])[facility])[address] [place] [address] Sodium [Moles/Vol] 132 mmol/L Low 135-145 [facility] Comment on above: Performed By: #### L AB19 ####Assembly Machine Tender: MARY SOTELO ([id number])[facility] ([facility])[address] [place] [address] [place] Urea nitrogen [Mass/Vol] 19 mg/dL High 7-17 [facility] Comment on above: Performed By: #### L AB19 ####Assembly Machine Tender: MARY SOTELO ([id number])[facility] ([facility])[address] [place] [address] Albumin [Mass/Vol] 2.1 g/dL Low 3.5-5.0 [facility] Comment on above: Performed By: #### L AB19 ####Assembly Machine Tender: MARY SOTELO ([id number])[facility] ([facility])[address] [place] [address] Anion gap [Moles/Vol] 3 mmol/L Normal 3-13 [facility] Comment on above: Performed By: #### L AB19 ####Assembly Machine Tender: AMRY SOTELO ([id number])[facility] [place] [address] Calcium [Mass/Vol] 8.7 mg/dL Normal 8.4-10.4 [facility] Comment on above: Performed By: #### L AB19 ####Assembly Machine Tender: MARY SOTELO ([id number])[facility] [place] [address] [place] Chloride [Moles/Vol] 105 mmol/L Normal 98-107 [facility] Comment on above: Performed By: #### L AB19 ####Assembly Machine Tender: MARY SOTELO ([id number])[facility] ([facility])[address] [place] [address] [place] CO2 [Moles/Vol] 24 mmol/L Normal 22-30 [facility] Comment on above: Performed By: #### L AB19 ####Assembly Machine Tender: MARY SOTELO ([id number])[facility] ([facility])[address] [place] [address] [place] Creatinine [Mass/Vol] 0.91 mg/dL Normal 0.52-1.04 [facility] Comment on above: Performed By: #### L AB19 ####Assembly Machine Tender: MARY SOTELO ([id number])[facility])[address] [place] [address] GLOMERULAR FILTRATION RATE ML/MIN/1.73 SQ M.PREDICTED 70.6 mL/min/1.73m*2 Normal >60.0 [facility] Comment on above: Result Comment: Calc ulation based on the Chronic Kidney Disease Epidemiology Collaboration (CKD-EPI) equation refit without adjustment for race Performed By: #### L AB19 ####Assembly Machine Tender: MARY SOTELO ([id number])[facility] ([facility])[address] [place] [address] Glucose [Mass/Vol] 161 mg/dL High 70-100 [facility] Comment on above: Performed By: #### L AB19 ####Assembly Machine Tender: MARY SOTELO ([id number])[facility] ([facility])[address] [place] [address] Phosphate [Mass/Vol] 3.8 mg/dL Normal 2.5-4.5 [facility] Comment on above: Performed By: #### L AB19 ####Assembly Machine Tender: MARY SOTELO ([id number])[facility] ([facility])[address] [place] [address] Potassium [Moles/Vol] 4.2 mmol/L Normal 3.5-5.1 [facility] Comment on above: Performed By: #### L AB19 ####Assembly Machine Tender: MARY SOTELO ([id number])[facility] ([facility])[address] [place] [address] [place] Sodium [Moles/Vol] 131 mmol/L Low 135-145 [facility] Comment on above: Performed By: #### L AB19 ####Assembly Machine Tender: MARY SOTELO ([id number])[facility] ([facility])[address] [place] [address] [place] Urea nitrogen [Mass/Vol] 22 mg/dL High 7-17 [facility] Comment on above: Performed By: #### L AB19 ####Assembly Machine Tender: MARY SOTELO ([id number])[facility] [place] [address] Albumin [Mass/Vol] 2.2 g/dL Low 3.5-5.0 [facility] Comment on above: Performed By: #### L AB19 ####Assembly Machine Tender: MARY SOTELO ([id number])[facility] [place] [address] Anion gap [Moles/Vol] 3 mmol/L Normal 3-13 [facility] Comment on above: Performed By: #### L AB19 ####Assembly Machine Tender: MARY SOTELO ([id number])[facility] ([facility])[address] [place] [address] Calcium [Mass/Vol] 8.7 mg/dL Normal 8.4-10.4 [facility] Comment on above: Performed By: #### L AB19 ####Assembly Machine Tender: MARY SOTELO ([id number])[facility] [place] [address] [place] Chloride [Moles/Vol] 105 mmol/L Normal 98-107 [facility] Comment on above: Performed By: #### L AB19 ####Assembly Machine Tender: MARY SOTELO ([id number])[facility] [place] [address] [place] CO2 [Moles/Vol] 24 mmol/L Normal 22-30 [facility] Comment on above: Performed By: #### L AB19 ####Assembly Machine Tender: MARY SOTELO ([id number])[facility] ([facility])[address] [place] [address] Creatinine [Mass/Vol] 0.98 mg/dL Normal 0.52-1.04 [facility] Comment on above: Performed By: #### L AB19 ####Assembly Machine Tender: MARY SOTELO ([id number])[facility] [place] [address] GLOMERULAR FILTRATION RATE ML/MIN/1.73 SQ M.PREDICTED 64.6 mL/min/1.73m*2 Normal >60.0 [facility] Comment on above: Result Comment: Calc ulation based on the Chronic Kidney Disease Epidemiology Collaboration (CKD-EPI) equation refit without adjustment for race Performed By: #### L AB19 ####Assembly Machine Tender: MARY SOTELO ([id number])[facility] ([facility])[address] [place] [address] Glucose [Mass/Vol] 229 mg/dL High 70-100 [facility] Comment on above: Performed By: #### L AB19 ####Assembly Machine Tender: MARY SOTELO ([id number])[facility])[address] [place] [address] Phosphate [Mass/Vol] 4.0 mg/dL Normal 2.5-4.5 [facility] Comment on above: Performed By: #### L AB19 ####Assembly Machine Tender: MARY SOTELO ([id number])[facility] ([facility])[address] [place] [address] Potassium [Moles/Vol] 4.5 mmol/L Normal 3.5-5.1 [facility] Comment on above: Performed By: #### L AB19 ####Assembly Machine Tender: MARY SOTELO ([id number])[facility] ([facility])[address] [place] [address] Sodium [Moles/Vol] 132 mmol/L Low 135-145 [facility] Comment on above: Performed By: #### L AB19 ####Assembly Machine Tender: MARY SOTELO ([id number])[facility] ([facility])[address] [place] [address] [place] Urea nitrogen [Mass/Vol] 24 mg/dL High 7-17 [facility] Comment on above: Performed By: #### L AB19 ####Assembly Machine Tender: MARY SOTELO ([id number])[facility] ([facility])[address] [place] [address] Renal function 2000 panelon 07-31-2024 Albumin [Mass/Vol] 1.9 g/dL Low 3.5 - 5.0 g/dL [facility] Anion gap [Moles/Vol] 1 mmol/L Low 3 - 13 mmol/L [facility] Calcium [Mass/Vol] 8.2 mg/dL Low 8.4 - 10. 4 mg/dL [facility] Chloride [Moles/Vol] 104 mmol/L 98 - 10 7 mmol/L [facility] CO2 [Moles/Vol] 25 mmol/L 22 - 30 mmol/L [facility] Creatinine [Mass/Vol] 0.81 mg/dL 0.52 - 1.04 mg/dL [facility] GFR/1.73 sq M.predicted (S/P/Bld) [Vol rate/Area] 81.2 mL/min - PINF [facility] Glucose [Mass/Vol] 173 mg/dL High 70 - 100 mg/dL [facility] Interpretation and review of laboratory results Abnormal [facility] Phosphate [Mass/Vol] 3.1 mg/dL 2.5 - 4 .5 mg/dL [facility] Potassium [Moles/Vol] 3.9 mmol/L 3.5 - 5.1 mmol/L [facility] [facility] S[facility] [Moles/Vol] 130 mmol/L Low 135 - 145 mmol/L [facility] Urea nitrogen [Mass/Vol] 16 mg/dL 7 - 17 mg/dL [facility] Albumin [Mass/Vol] 1.9 g/dL Low 3.5 - 5.0 g/dL [facility] Anion gap [Moles/Vol] 2 mmol/L Low 3 - 13 mmol/L [facility] Calcium [Mass/Vol] 8.7 mg/dL 8.4 - 10. 4 mg/dL [facility] Chloride [Moles/Vol] 105 mmol/L 98 - 10 7 mmol/L [facility] CO2 [Moles/Vol] 25 mmol/L 22 - 30 mmol/L [facility] Creatinine [Mass/Vol] 0.89 mg/dL 0.52 - 1.04 mg/dL [facility] GFR/1.73 sq M.predicted (S/P/Bld) [Vol rate/Area] 72.5 mL/min - PINF [facility] Glucose [Mass/Vol] 104 mg/dL High 70 - 100 mg/dL [facility] Interpretation and review of laboratory results Abnormal [facility] Phosphate [Mass/Vol] 3.2 mg/dL 2.5 - 4 .5 mg/dL [facility] Potassium [Moles/Vol] 3.7 mmol/L 3.5 - 5.1 mmol/L [facility] Sodium [Moles/Vol] 132 mmol/L Low 135 - 145 mmol/L [facility] Urea nitrogen [Mass/Vol] 19 mg/dL High 7 - 17 mg/dL [facility] Albumin [Mass/Vol] 2.1 g/dL Low 3.5 - 5.0 g/dL [facility] Anion gap [Moles/Vol] 3 mmol/L 3 - 13 mmol/L [facility] Calcium [Mass/Vol] 8.7 mg/dL 8.4 - 10. 4 mg/dL [facility] Chloride [Moles/Vol] 105 mmol/L 98 - 10 7 mmol/L [facility] CO2 [Moles/Vol] 24 mmol/L 22 - 30 mmol/L [facility] Creatinine [Mass/Vol] 0.91 mg/dL 0.52 - 1.04 mg/dL [facility] GFR/1.73 sq M.predicted (S/P/Bld) [Vol rate/Area] 70.6 mL/min - PINF [facility] Glucose [Mass/Vol] 161 mg/dL High 70 - 100 mg/dL [facility] Interpretation and review of laboratory results Abnormal [facility] Phosphate [Mass/Vol] 3.8 mg/dL 2.5 - 4 .5 mg/dL [facility] Potassium [Moles/Vol] 4.2 mmol/L 3.5 - 5.1 mmol/L [facility] Sodium [Moles/Vol] 131 mmol/L Low 135 - 145 mmol/L [facility] Urea nitrogen [Mass/Vol] 22 mg/dL High 7 - 17 mg/dL [facility] Albumin [Mass/Vol] 2.2 g/dL Low 3.5 - 5.0 g/dL [facility] Anion gap [Moles/Vol] 3 mmol/L 3 - 13 mmol/L [facility] Calcium [Mass/Vol] 8.7 mg/dL 8.4 - 10. 4 mg/dL [facility] Chloride [Moles/Vol] 105 mmol/L 98 - 10 7 mmol/L [facility] CO2 [Moles/Vol] 24 mmol/L 22 - 30 mmol/L [facility] Creatinine [Mass/Vol] 0.98 mg/dL 0.52 - 1.04 mg/dL [facility] GFR/1.73 sq M.predicted (S/P/Bld) [Vol rate/Area] 64.6 mL/min - PINF [facility] Glucose [Mass/Vol] 229 mg/dL High 70 - 100 mg/dL [facility] Interpretation and review of laboratory results Abnormal [facility] Phosphate [Mass/Vol] 4.0 mg/dL 2.5 - 4 .5 mg/dL [facility] Potassium [Moles/Vol] 4.5 mmol/L 3.5 - 5.1 mmol/L [facility] Sodium [Moles/Vol] 132 mmol/L Low 135 - 145 mmol/L [facility] Urea nitrogen [Mass/Vol] 24 mg/dL High 7 - 17 mg/dL [facility] BLOOD GAS ARTERIALon 024 Base excess Calc (Bld) [Moles/Vol] 1.9 mmol/L Normal -3.0-3.0 [facility] Comment on above: Performed By: #### L [id number] ####Assembly Machine Tender: MARY SOTELO ([id number])[facility])[address] [place] [address] CO2 [Moles/Vol] 28.3 mmol/L High 23.0-27.0 [facility] Comment on above: Performed By: #### L [id number] ####Assembly Machine Tender: MARY SOTELO ([id number])[facility] ([facility])[address] [place] [address] [place] HCO3 (Bld) [Moles/Vol] 26.9 mmol/L High 21.0-25.0 [facility] Comment on above: Performed By: #### L [id number] ####Assembly Machine Tender: MARY SOTELO ([id number])[facility] ([facility])[address] [place] [address] Hemoglobin (Bld) [Mass/Vol] 7.7 g/dL Normal Screen only [facility] Comment on above: Performed By: #### L [id number] ####Assembly Machine Tender: MARY SOTELO ([id number])[facility] ([facility])[address] [place] [address] OXYGEN SATURATION (%) IN ARTERIAL BLOOD 97.9 % Normal 95.0-100.0 [facility] Comment on above: Performed By: #### L [id number] ####Assembly Machine Tender: MARY SOTELO ([id number])[facility] ([facility])[address] [place] [address] PCO2 ARTERIAL 44.6 mm Hg Normal >35.0-<45.0 [facility] Comment on above: Performed By: #### L [id number] ####Assembly Machine Tender: MARY SOTELO ([id number])[facility] ([facility])[address] [place] [address] PH ARTERIAL 7.399 Normal 7.350-7.450 [facility] Comment on above: Performed By: #### L [id number] ####Assembly Machine Tender: MARY SOTELO ([id number])[facility] ([facility])[address] [place] [address] PO2 ARTERIAL 113.8 mm Hg High 80.0-100.0 [facility] Comment on above: Performed By: #### L [id number] ####Assembly Machine Tender: MARY SOTELO ([id number])[facility] ([facility])[address] [place] [address] SOURCE OF OXYGEN 30% Oxygen Normal [facility] Comment on above: Result Comment: lon llator Performed By: #### L [id number] ####Assembly Machine Tender: MARY SOTELO ([id number])[facility] ([facility])[address] [place] [address] Base excess Calc (Bld) [Moles/Vol] 0.7 mmol/L Normal -3.0-3.0 [facility] Comment on above: Performed By: #### L [id number] ####Assembly Machine Tender: MARY SOTELO ([id number])[facility])[address] [place] [address] CO2 [Moles/Vol] 27.6 mmol/L High 23.0-27.0 [facility] Comment on above: Performed By: #### L [id number] ####Assembly Machine Tender: MARY SOTELO ([id number])[facility])[address] [place] [address] HCO3 (Bld) [Moles/Vol] 26.2 mmol/L High 21.0-25.0 [facility] Comment on above: Performed By: #### L [id number] ####Assembly Machine Tender: MARY SOTELO ([id number])[facility] ([facility])[address] [place] [address] Hemoglobin (Bld) [Mass/Vol] 7.9 g/dL Normal Screen only [facility] Comment on above: Performed By: #### L [id number] ####Assembly Machine Tender: MARY SOTELO ([id number])[facility])[address] [place] [address] OXYGEN SATURATION (%) IN ARTERIAL BLOOD 97.2 % Normal 95.0-100.0 [facility] Comment on above: Performed By: #### L [id number] ####Assembly Machine Tender: MARY SOTELO ([id number])[facility])[address] [place] [address] PCO2 ARTERIAL 46.3 mm Hg High >35.0-<45.0 [facility] Comment on above: Performed By: #### L [id number] ####Assembly Machine Tender: MARY SOTELO ([id number])[facility])[address] [place] [address] PH ARTERIAL 7.370 Normal 7.350-7.450 [facility] Comment on above: Performed By: #### L [id number] ####Assembly Machine Tender: MARY SOTELO ([id number])[facility])[address] [place] [address] PO2 ARTERIAL 114.1 mm Hg High 80.0-100.0 [facility] Comment on above: Performed By: #### L [id number] ####Assembly Machine Tender: MARY SOTELO ([id number])[facility] [place] [address] [place] SOURCE OF OXYGEN Vent Normal [facility] Comment on above: Performed By: #### L [id number] ####Assembly Machine Tender: MARY SOTELO ([id number])[facility])[address] [place] [address] CALCIUM, IONIZEDon 4 CALCIUM IONIZED 4.90 mg/dL Normal 4.30-5.20 [facility] Comment on above: Performed By: #### L [id number] ####Assembly Machine Tender: MARY SOTELO ([id number])[facility])[address] [place] [address] PH, IONIZED CALCIUM 7.34 Normal 7.31-7.46 [facility] Comment on above: Performed By: #### L [id number] ####Assembly Machine Tender: MARY SOTELO ([id number])[facility])[address] [place] [address] CALCIUM IONIZED 4.20 mg/dL Low 4.30-5.20 [facility] Comment on above: Performed By: #### L [id number] ####Assembly Machine Tender: MARY SOTELO ([id number])[facility])[address] [place] [address] PH, IONIZED CALCIUM 7.43 Normal 7.31-7.46 [facility] Comment on above: Performed By: #### L AB54 ####Assembly Machine Tender: MARY SOTELO ([id number])[facility])[address] [place] [address] [place] CALCIUM IONIZED 4.10 mg/dL Low 4.30-5.20 [facility] Comment on above: Performed By: #### L AB54 ####Assembly Machine Tender: MARY SOTELO ([id number])[facility])[address] [place] [address] PH, IONIZED CALCIUM 7.42 Normal 7.31-7.46 [facility] Comment on above: Performed By: #### L [id number] ####Assembly Machine Tender: MARY SOTELO ([id number])[facility] ([facility])[address] [place] [address] CALCIUM IONIZED 4.30 mg/dL Normal 4.30-5.20 [facility] Comment on above: Performed By: #### L [id number] ####Assembly Machine Tender: MARY SOTELO ([id number])[facility] ([facility])[address] [place] [address] PH, IONIZED CALCIUM 7.37 Normal 7.31-7.46 [facility] Comment on above: Performed By: #### L [id number] ####Assembly Machine Tender: MARY SOTELO ([id number])[facility] ([facility])[address] [place] [address] CARECOORDon 07-30-2024 CARECOORD Normal [facility] CBC WITH AUTO DIFFERENTIALon 07-30-2024 Basophils (Bld) [#/Vol] 0.0 10*3/uL Normal 0.0-0.2 [facility] Comment on above: Performed By: #### L [id number] ####Assembly Machine Tender: MARY SOTELO ([id number])[facility] ([facility])[address] [place] [address] Basophils/100 WBC (Bld) 0.0 % Normal 0.0-2.0 [facility] Comment on above: Performed By: #### L [id number] ####Assembly Machine Tender: MARY SOTELO ([id number])[facility])[address] [place] [address] Eosinophils (Bld) [#/Vol] 0.0 10*3/uL Normal 0.0-0.5 [facility] Comment on above: Performed By: #### L [id number] ####Assembly Machine Tender: MARY SOTELO ([id number])[facility])[address] [place] [address] Eosinophils/100 WBC (Bld) 0.0 % Normal 0.0-6.0 [facility] Comment on above: Performed By: #### L [id number] ####Assembly Machine Tender: MARY SOTELO ([id number])[facility])[address] [place] [address] Erythrocyte distribution width (RBC) [Ratio] 15.5 % High 11.5-15.0 [facility] Comment on above: Performed By: #### L [id number] ####Assembly Machine Tender: MARY SOTELO ([id number])[facility])[address] [place] [address] Hematocrit (Bld) [Volume fraction] 23.0 % Low 35.0-47.0 [facility] Comment on above: Performed By: #### L [id number] ####Assembly Machine Tender: MARY SOTELO ([id number])[facility])[address] [place] [address] Hemoglobin (Bld) [Mass/Vol] 7.3 g/dL Low 11.7-16.0 [facility] Comment on above: Performed By: #### L [id number] ####Assembly Machine Tender: MARY SOTELO ([id number])[facility])[address] [place] [address] IMMATURE GRANS % 0.4 % Normal 0.0-2.0 [facility] Comment on above: Performed By: #### L [id number] ####Assembly Machine Tender: MARY SOTELO ([id number])[facility])[address] [place] [address] IMMATURE GRANS ABSOLUTE 0.1 10*3/uL High <0.1 [facility] Comment on above: Performed By: #### L [id number] ####Assembly Machine Tender: MARY SOTELO ([id number])[facility])[address] [place] [address] Lymphocytes (Bld) [#/Vol] 0.6 10*3/uL Low 1.0-4.3 [facility] Comment on above: Performed By: #### L [id number] ####Assembly Machine Tender: MARY SOTELO ([id number])[facility] ([address] Lymphocytes/100 WBC (Bld) 4.3 % Low 15.0-45.0 [facility] Comment on above: Performed By: #### L [id number] ####Assembly Machine Tender: MARY SOTELO ([id number])[facility])[address] [place] [address] MCH (RBC) [Entitic mass] 28.6 pg Normal 26.0-34.0 [facility] Comment on above: Performed By: #### L [id number] ####Assembly Machine Tender: MARY SOTELO ([id number])[facility])[address] [place] [address] MCHC 31.7 % Normal 30.5-36.0 [facility] Comment on above: Performed By: #### L [id number] ####Assembly Machine Tender: MARY SOTELO ([id number])[facility])[address] [place] [address] MCV (RBC) [Entitic vol] 90.2 fL Normal 77.0-99.0 [facility] Comment on above: Performed By: #### L [id number] ####Assembly Machine Tender: MARY SOTELO ([id number])[facility])[address] [place] [address] Monocytes (Bld) [#/Vol] 0.6 10*3/uL Normal 0.0-0.9 [facility] Comment on above: Performed By: #### L [id number] ####Assembly Machine Tender: MARY SOTELO ([id number])[facility])[address] [place] [address] Monocytes/100 WBC (Bld) 4.4 % Low 5.0-13.0 [facility] Comment on above: Performed By: #### L [id number] ####Assembly Machine Tender: MARY SOTELO ([id number])[facility])[address] [place] [address] NEUTROPHILS ABSOLUTE 12.3 10*3/uL High 1.8-7.5 [facility] Comment on above: Performed By: #### L [id number] ####Assembly Machine Tender: MARY SOTELO ([id number])[facility])[address] [place] [address] Neutrophils/100 WBC (Bld) 90.9 % High 38.0-82.0 [facility] Comment on above: Performed By: #### L [id number] ####Assembly Machine Tender: MARY SOTELO ([id number])[facility] ([facility])[address] [place] [address] NRBC 0.0 /100 WBCs Normal 0.0-2.0 [facility] Comment on above: Performed By: #### L [id number] ####Assembly Machine Tender: MARY SOTELO ([id number])[facility])[address] [place] [address] Platelet mean volume (Bld) [Entitic vol] 10.5 fL Normal 9.0-12.7 [facility] Comment on above: Performed By: #### L [id number] ####Assembly Machine Tender: MARY SOTELO ([id number])[facility] ([facility])[address] [place] [address] Platelets (Bld) [#/Vol] 161 10*3/uL Normal 140-440 [facility] Comment on above: Performed By: #### L [id number] ####Assembly Machine Tender: MARY SOTELO ([id number])[facility])[address] [place] [address] RBC (Bld) [#/Vol] 2.55 10*6/uL Low 3.80-5.20 [facility] Comment on above: Performed By: #### L [id number] ####Assembly Machine Tender: MARY SOTELO ([id number])[facility])[address] [place] [address] WBC (Bld) [#/Vol] 13.6 10*3/uL High 3.6-10.7 [facility] Comment on above: Performed By: #### L [id number] ####Assembly Machine Tender: MARY SOTELO ([id number])[facility] ([facility])[address] [place] [address] [place] IDNon 07-30-2024 IDN Normal [facility] Laboratory - Chemistry and C hemistry - challengeon 07-30-2024 Glucose [Mass/Vol] 165 mg/dL High 70 - 100 mg/dL [facility] No Panel Informationon 07-30 Interpretation and review of laboratory results Abnormal [facility] Nursing Noteon 07-30-2024 Nursing Note Patient pulled out O G tube. Also pulled out ET tube a couple centimeters. . Respiratory therapist advanced ET tube. OG tube place to 55cm. Will get Xray. Restarted Fentanyl. Precedex maxed. Normal [facility] Nursing Note Patient got ahold of suction tubing on ET tube. Pulled her ET tube out a couple centimeters. Respiratory therapist notified. Normal [facility] Progress Noteon 07-30-2024 Progress Note Normal [facility] Progress Note Normal [facility] Progress Note Normal [facility] Progress Note Normal [facility] Progress Note PHYSICAL THERAPY [facility] Name/MRN: Sandy Deng ([id number]) Date: 07/30/2024 Screen Note. Pt remains intubated and sedated with orders for strict bed rest. Will continue to follow and re-attempt as able. Jennifer Saldaña, SPT Normal [facility] Progress Note Normal [facility] RENAL FUNCTION PANELon 07-30 Albumin [Mass/Vol] 2.0 g/dL Low 3.5-5.0 [facility] Comment on above: Performed By: #### L [id number] ####Assembly Machine Tender: MARY SOTELO ([id number])[facility])[address] [place] [address] Anion gap [Moles/Vol] 0 mmol/L Low 3-13 [facility] Comment on above: Performed By: #### L [id number] ####Assembly Machine Tender: MARY SOTELO ([id number])[facility] ([facility])[address] [place] [address] [place] Calcium [Mass/Vol] 8.7 mg/dL Normal 8.4-10.4 [facility] Comment on above: Performed By: #### L [id number] ####Assembly Machine Tender: MARY SOTELO ([id number])[facility] [place] [address] Chloride [Moles/Vol] 104 mmol/L Normal 98-107 [facility] Comment on above: Performed By: #### L [id number] ####Assembly Machine Tender: MARY SOTELO ([id number])[facility] [place] [address] CO2 [Moles/Vol] 28 mmol/L Normal 22-30 [facility] Comment on above: Performed By: #### L [id number] ####Assembly Machine Tender: MARY SOTELO ([id number])[facility])[address] [place] [address] Creatinine [Mass/Vol] 0.98 mg/dL Normal 0.52-1.04 [facility] Comment on above: Performed By: #### L [id number] ####Assembly Machine Tender: MARY SOTELO ([id number])[facility] ([facility])[address] [place] [address] GLOMERULAR FILTRATION RATE ML/MIN/1.73 SQ M.PREDICTED 64.6 mL/min/1.73m*2 Normal >60.0 [facility] Comment on above: Result Comment: Calc ulation based on the Chronic Kidney Disease Epidemiology Collaboration (CKD-EPI) equation refit without adjustment for race Performed By: #### L [id number] ####Assembly Machine Tender: MARY SOTELO ([id number])[facility])[address] [place] [address] [place] Glucose [Mass/Vol] 114 mg/dL High 70-100 [facility] Comment on above: Performed By: #### L [id number] ####Assembly Machine Tender: MARY SOTELO ([id number])[facility])[address] [place] [address] [place] Phosphate [Mass/Vol] 3.7 mg/dL Normal 2.5-4.5 [facility] Comment on above: Performed By: #### L [id number] ####Assembly Machine Tender: MARY SOTELO ([id number])[facility])[address] [place] [address] Potassium [Moles/Vol] 4.5 mmol/L Normal 3.5-5.1 [facility] Comment on above: Performed By: #### L [id number] ####Assembly Machine Tender: MARY SOTELO ([id number])[facility] [place] [address] Sodium [Moles/Vol] 132 mmol/L Low 135-145 [facility] Comment on above: Performed By: #### L [id number] ####Assembly Machine Tender: MARY SOTELO ([id number])[facility])[address] [place] [address] Urea nitrogen [Mass/Vol] 24 mg/dL High 7-17 [facility] Comment on above: Performed By: #### L [id number] ####Assembly Machine Tender: MARY SOTELO ([id number])[facility] ([facility])[address] [place] [address] Albumin [Mass/Vol] 2.0 g/dL Low 3.5-5.0 [facility] Comment on above: Performed By: #### L [id number] ####Assembly Machine Tender: MARY SOTELO ([id number])[facility])[address] [place] [address] [place] Anion gap [Moles/Vol] 1 mmol/L Low 3-13 [facility] Comment on above: Performed By: #### L [id number] ####Assembly Machine Tender: MARY SOTELO ([id number])[facility] ([facility])[address] [place] [address] Calcium [Mass/Vol] 7.7 mg/dL Low 8.4-10.4 [facility] Comment on above: Performed By: #### L [id number] ####Assembly Machine Tender: MARY SOTELO ([id number])[facility] [place] [address] Chloride [Moles/Vol] 104 mmol/L Normal 98-107 [facility] Comment on above: Performed By: #### L [id number] ####Assembly Machine Tender: MARY SOTELO ([id number])[facility] [place] [address] CO2 [Moles/Vol] 28 mmol/L Normal 22-30 [facility] Comment on above: Performed By: #### L [id number] ####Assembly Machine Tender: MARY SOTELO ([id number])[facility] ([facility])[address] [place] [address] Creatinine [Mass/Vol] 1.19 mg/dL High 0.52-1.04 [facility] Comment on above: Performed By: #### L [id number] ####Assembly Machine Tender: MARY SOTELO ([id number])[facility] ([facility])[address] [place] [address] GLOMERULAR FILTRATION RATE ML/MIN/1.73 SQ M.PREDICTED 51.2 mL/min/1.73m*2 Low >60.0 [facility] Comment on above: Result Comment: Calc ulation based on the Chronic Kidney Disease Epidemiology Collaboration (CKD-EPI) equation refit without adjustment for race Performed By: #### L [id number] ####Assembly Machine Tender: MARY SOTELO ([id number])[facility] [place] [address] [place] Glucose [Mass/Vol] 89 mg/dL Normal 70-100 [facility] Comment on above: Performed By: #### L [id number] ####Assembly Machine Tender: MARY SOTELO ([id number])[facility] ([facility])[address] [place] [address] Phosphate [Mass/Vol] 3.6 mg/dL Normal 2.5-4.5 [facility] Comment on above: Performed By: #### L [id number] ####Assembly Machine Tender: MARY SOTELO ([id number])[facility] ([facility])[address] [place] [address] [place] Potassium [Moles/Vol] 5.0 mmol/L Normal 3.5-5.1 [facility] Comment on above: Performed By: #### L [id number] ####Assembly Machine Tender: MARY SOTELO ([id number])[facility] ([facility])[address] [place] [address] Sodium [Moles/Vol] 133 mmol/L Low 135-145 [facility] Comment on above: Performed By: #### L [id number] ####Assembly Machine Tender: MARY SOTELO ([id number])[facility] ([facility])[address] [place] [address] Urea nitrogen [Mass/Vol] 28 mg/dL High 7-17 [facility] Comment on above: Performed By: #### L [id number] ####Assembly Machine Tender: MARY SOTELO ([id number])[facility] ([facility])[address] [place] [address] Albumin [Mass/Vol] 2.1 g/dL Low 3.5-5.0 [facility] Comment on above: Performed By: #### L [id number] ####Assembly Machine Tender: MARY SOTELO ([id number])[facility] ([facility])[address] [place] [address] Anion gap [Moles/Vol] 1 mmol/L Low 3-13 [facility] Comment on above: Performed By: #### L [id number] ####Assembly Machine Tender: MARY SOTELO ([id number])[facility])[address] [place] [address] Calcium [Mass/Vol] 7.3 mg/dL Low 8.4-10.4 [facility] Comment on above: Performed By: #### L [id number] ####Assembly Machine Tender: MARY SOTELO ([id number])[facility])[address] [place] [address] Chloride [Moles/Vol] 105 mmol/L Normal 98-107 [facility] Comment on above: Performed By: #### L [id number] ####Assembly Machine Tender: MARY SOTELO ([id number])[facility] [place] [address] CO2 [Moles/Vol] 26 mmol/L Normal 22-30 [facility] Comment on above: Performed By: #### L [id number] ####Assembly Machine Tender: MARY SOTELO ([id number])[facility] ([facility])[address] [place] [address] Creatinine [Mass/Vol] 1.37 mg/dL High 0.52-1.04 [facility] Comment on above: Performed By: #### L [id number] ####Assembly Machine Tender: MARY SOTELO ([id number])[facility] ([facility])[address] [place] [address] GLOMERULAR FILTRATION RATE ML/MIN/1.73 SQ M.PREDICTED 43.2 mL/min/1.73m*2 Low >60.0 [facility] Comment on above: Result Comment: Calc ulation based on the Chronic Kidney Disease Epidemiology Collaboration (CKD-EPI) equation refit without adjustment for race Performed By: #### L [id number] ####Assembly Machine Tender: MARY SOTELO ([id number])[facility] ([facility])[address] [place] [address] Glucose [Mass/Vol] 149 mg/dL High 70-100 [facility] Comment on above: Performed By: #### L [id number] ####Assembly Machine Tender: MARY SOTELO ([id number])[facility] ([facility])[address] [place] [address] Phosphate [Mass/Vol] 4.1 mg/dL Normal 2.5-4.5 [facility] Comment on above: Performed By: #### L [id number] ####Assembly Machine Tender: MARY OSTELO ([id number])[facility])[address] [place] [address] Potassium [Moles/Vol] 5.4 mmol/L High 3.5-5.1 [facility] Comment on above: Performed By: #### L [id number] ####Assembly Machine Tender: MARY SOTELO ([id number])[facility] ([facility])[address] [place] [address] Sodium [Moles/Vol] 132 mmol/L Low 135-145 [facility] Comment on above: Performed By: #### L [id number] ####Assembly Machine Tender: MARY SOTELO ([id number])[facility] [place] [address] Urea nitrogen [Mass/Vol] 31 mg/dL High 7-17 [facility] Comment on above: Performed By: #### L [id number] ####Assembly Machine Tender: MARY SOTELO ([id number])[facility] ([facility])[address] [place] [address] Albumin [Mass/Vol] 2.0 g/dL Low 3.5-5.0 [facility] Comment on above: Performed By: #### L [id number] ####Assembly Machine Tender: MARY SOTELO ([id number])[facility] ([facility])[address] [place] [address] Anion gap [Moles/Vol] 1 mmol/L Low 3-13 [facility] Comment on above: Performed By: #### L [id number] ####Assembly Machine Tender: MARY SOTELO ([id number])[facility] ([facility])[address] [place] [address] Calcium [Mass/Vol] 7.6 mg/dL Low 8.4-10.4 [facility] Comment on above: Performed By: #### L [id number] ####Assembly Machine Tender: MARY SOTELO ([id number])[facility] ([facility])[address] [place] [address] [place] Chloride [Moles/Vol] 106 mmol/L Normal 98-107 [facility] Comment on above: Performed By: #### L [id number] ####Assembly Machine Tender: MARY SOTELO ([id number])[facility] ([facility])[address] [place] [address] [place] CO2 [Moles/Vol] 24 mmol/L Normal 22-30 [facility] Comment on above: Performed By: #### L [id number] ####Assembly Machine Tender: MARY SOTELO ([id number])[facility] ([facility])[address] [place] [address] Creatinine [Mass/Vol] 1.54 mg/dL High 0.52-1.04 [facility] Comment on above: Performed By: #### L [id number] ####Assembly Machine Tender: MARY SOTELO ([id number])[facility])[address] [place] [address] GLOMERULAR FILTRATION RATE ML/MIN/1.73 SQ M.PREDICTED 37.5 mL/min/1.73m*2 Low >60.0 [facility] Comment on above: Result Comment: Calc ulation based on the Chronic Kidney Disease Epidemiology Collaboration (CKD-EPI) equation refit without adjustment for race Performed By: #### L [id number] ####Assembly Machine Tender: MARY SOTELO ([id number])[facility])[address] [place] [address] Glucose [Mass/Vol] 147 mg/dL High 70-100 [facility] Comment on above: Performed By: #### L [id number] ####Assembly Machine Tender: MARY SOTELO ([id number])[facility] ([facility])[address] [place] [address] Phosphate [Mass/Vol] 4.2 mg/dL Normal 2.5-4.5 [facility] Comment on above: Performed By: #### L [id number] ####Assembly Machine Tender: MARY SOTELO ([id number])[facility])[address] [place] [address] Potassium [Moles/Vol] 5.3 mmol/L High 3.5-5.1 [facility] Comment on above: Performed By: #### L [id number] ####Assembly Machine Tender: MARY SOTELO ([id number])[facility])[address] [place] [address] Sodium [Moles/Vol] 132 mmol/L Low 135-145 [facility] Comment on above: Performed By: #### L [id number] ####Assembly Machine Tender: MARY SOTELO ([id number])[facility] ([facility])[address] [place] [address] Urea nitrogen [Mass/Vol] 32 mg/dL High 7-17 [facility] Comment on above: Performed By: #### L [id number] ####Assembly Machine Tender: MARY SOTELO ([id number])[facility] ([facility])[address] [place] [address] [place] Renal function 2000 panelon 07-30-2024 Albumin [Mass/Vol] 2.0 g/dL Low 3.5 - 5.0 g/dL [facility] Anion gap [Moles/Vol] 0 mmol/L Low 3 - 13 mmol/L [facility] Calcium [Mass/Vol] 8.7 mg/dL 8.4 - 10. 4 mg/dL [facility] XR CHEST 1 VIEWon 07-30-2024 XR CHEST 1 VIEW Normal [facility] BLOOD GAS ARTERIALon 024 Base excess Calc (Bld) [Moles/Vol] 0.9 mmol/L Normal -3.0-3.0 [facility] Comment on above: Performed By: #### L [id number] ####Assembly Machine Tender: MARY SOTELO ([id number])[facility] ([facility])[address] [place] [address] [place] CO2 [Moles/Vol] 26.3 mmol/L Normal 23.0-27.0 [facility] Comment on above: Performed By: #### L [id number] ####Assembly Machine Tender: MARY SOTELO ([id number])[facility] ([facility])[address] [place] [address] [place] HCO3 (Bld) [Moles/Vol] 25.1 mmol/L High 21.0-25.0 [facility] Comment on above: Performed By: #### L [id number] ####Assembly Machine Tender: MARY SOTELO ([id number])[facility] ([facility])[address] [place] [address] [place] Hemoglobin (Bld) [Mass/Vol] 8.3 g/dL Normal Screen only [facility] Comment on above: Performed By: #### L [id number] ####Assembly Machine Tender: MARY SOTELO ([id number])[facility] [place] [address] OXYGEN SATURATION (%) IN ARTERIAL BLOOD 97.1 % Normal 95.0-100.0 [facility] Comment on above: Performed By: #### L [id number] ####Assembly Machine Tender: MARY SOTELO ([id number])[facility] ([facility])[address] [place] [address] PCO2 ARTERIAL 37.9 mm Hg Normal >35.0-<45.0 [facility] Comment on above: Performed By: #### L [id number] ####Assembly Machine Tender: MARY SOTELO ([id number])[facility] ([facility])[address] [place] [address] PH ARTERIAL 7.439 Normal 7.350-7.450 [facility] Comment on above: Performed By: #### L [id number] ####Assembly Machine Tender: MARY SOTELO ([id number])[facility] ([facility])[address] [place] [address] PO2 ARTERIAL 96.3 mm Hg Normal 80.0-100.0 [facility] Comment on above: Performed By: #### L [id number] ####Assembly Machine Tender: MARY SOTELO ([id number])[facility] ([facility])[address] [place] [address] SOURCE OF OXYGEN 30% Oxygen Normal [facility] Comment on above: Result Comment: vent ilator Performed By: #### L [id number] ####Assembly Machine Tender: MARY SOTELO ([id number])[facility] ([facility])[address] [place] [address] Base excess Calc (Bld) [Moles/Vol] 3.5 mmol/L High -3.0-3.0 [facility] Comment on above: Performed By: #### L [id number] ####Assembly Machine Tender: MARY SOTELO ([id number])[facility] ([facility])[address] [place] [address] [place] CO2 [Moles/Vol] 27.7 mmol/L High 23.0-27.0 [facility] Comment on above: Performed By: #### L [id number] ####Assembly Machine Tender: MARY SOTELO ([id number])[facility] ([facility])[address] [place] [address] HCO3 (Bld) [Moles/Vol] 26.7 mmol/L High 21.0-25.0 [facility] Comment on above: Performed By: #### L [id number] ####Assembly Machine Tender: MARY SOTELO ([id number])[facility] ([facility])[address] [place] [address] Hemoglobin (Bld) [Mass/Vol] 8.0 g/dL Normal Screen only [facility] Comment on above: Performed By: #### L [id number] ####Assembly Machine Tender: MARY SOTELO ([id number])[facility])[address] [place] [address] OXYGEN SATURATION (%) IN ARTERIAL BLOOD 96.2 % Normal 95.0-100.0 [facility] Comment on above: Performed By: #### L [id number] ####Assembly Machine Tender: MARY SOTELO ([id number])[facility] ([facility])[address] [place] [address] PCO2 ARTERIAL 34.5 mm Hg Low >35.0-<45.0 [facility] Comment on above: Performed By: #### L [id number] ####Assembly Machine Tender: MARY SOTELO ([id number])[facility])[address] [place] [address] PH ARTERIAL 7.506 High 7.350-7.450 [facility] Comment on above: Performed By: #### L [id number] ####Assembly Machine Tender: MARY SOTELO ([id number])[facility])[address] [place] [address] PO2 ARTERIAL 88.9 mm Hg Normal 80.0-100.0 [facility] Comment on above: Performed By: #### L [id number] ####Assembly Machine Tender: MARY [id number])[facility] [place] [address] SOURCE OF OXYGEN 30% Oxygen Normal [facility] Comment on above: Result Comment: vent ilator Performed By: #### L [id number] ####Assembly Machine Tender: MARY SOTELO ([id number])[facility] ([facility])[address] [place] [address] Base excess Calc (Bld) [Moles/Vol] 1.9 mmol/L Normal -3.0-3.0 [facility] Comment on above: Performed By: #### L [id number] ####Assembly Machine Tender: MARY SOTELO ([id number])[facility] ([facility])[address] [place] [address] CO2 [Moles/Vol] 26.0 mmol/L Normal 23.0-27.0 [facility] Comment on above: Performed By: #### L [id number] ####Assembly Machine Tender: MARY SOTELO ([id number])[facility] ([facility])[address] [place] [address] HCO3 (Bld) [Moles/Vol] 25.0 mmol/L Normal 21.0-25.0 [facility] Comment on above: Performed By: #### L [id number] ####Assembly Machine Tender: MARY SOTELO ([id number])[facility] ([facility])[address] [place] [address] Hemoglobin (Bld) [Mass/Vol] 8.2 g/dL Normal Screen only [facility] Comment on above: Performed By: #### L [id number] ####Assembly Machine Tender: MARY SOTELO ([id number])[facility] ([facility])[address] [place] [address] OXYGEN SATURATION (%) IN ARTERIAL BLOOD 97.9 % Normal 95.0-100.0 [facility] Comment on above: Performed By: #### L [id number] ####Assembly Machine Tender: MARY SOTELO ([id number])[facility] ([facility])[address] [place] [address] PCO2 ARTERIAL 32.6 mm Hg Low >35.0-<45.0 [facility] Comment on above: Performed By: #### L [id number] ####Assembly Machine Tender: MARY SOTELO ([id number])[facility])[address] [place] [address] PH ARTERIAL 7.502 High 7.350-7.450 [facility] Comment on above: Performed By: #### L [id number] ####Assembly Machine Tender: MARY SOTELO ([id number])[facility] ([facility])[address] [place] [address] PO2 ARTERIAL 110.0 mm Hg High 80.0-100.0 [facility] Comment on above: Performed By: #### L [id number] ####Assembly Machine Tender: MARY SOTELO ([id number])[facility])[address] [place] [address] SOURCE OF OXYGEN Vent Normal [facility] Comment on above: Performed By: #### L [id number] ####Assembly Machine Tender: MARY SOTELO ([id number])[facility])[address] [place] [address] [place] CALCIUM, IONIZEDon 4 CALCIUM IONIZED 4.70 mg/dL Normal 4.30-5.20 [facility] Comment on above: Performed By: #### L [id number] ####Assembly Machine Tender: MARY SOTELO ([id number])[facility] ([facility])[address] [place] [address] PH, IONIZED CALCIUM 7.41 Normal 7.31-7.46 [facility] Comment on above: Performed By: #### L AB54 ####Assembly Machine Tender: MARY SOTELO ([id number])[facility])[address] [place] [address] CALCIUM IONIZED 4.30 mg/dL Normal 4.30-5.20 [facility] Comment on above: Performed By: #### L [id number] ####Assembly Machine Tender: MARY SOTELO ([id number])[facility] ([facility])[address] [place] [address] PH, IONIZED CALCIUM 7.44 Normal 7.31-7.46 [facility] Comment on above: Performed By: #### L [id number] ####Assembly Machine Tender: MARY SOTELO ([id number])[facility])[address] [place] [address] CALCIUM IONIZED 4.10 mg/dL Low 4.30-5.20 [facility] Comment on above: Performed By: #### L [id number] ####Assembly Machine Tender: MARY SOTELO ([id number])[facility])[address] [place] [address] PH, IONIZED CALCIUM 7.51 High 7.31-7.46 [facility] Comment on above: Performed By: #### L AB54 ####Assembly Machine Tender: MARY SOTELO ([id number])[facility])[address] [place] [address] CBC WITH AUTO DIFFERENTIALon 07-29-2024 Basophils (Bld) [#/Vol] 0.0 10*3/uL Normal 0.0-0.2 [facility] Comment on above: Performed By: #### L [id number] ####Assembly Machine Tender: MARY SOTELO ([id number])[facility])[address] [place] [address] Basophils/100 WBC (Bld) 0.0 % Normal 0.0-2.0 [facility] Comment on above: Performed By: #### L [id number] ####Assembly Machine Tender: MARY SOTELO ([id number])[facility])[address] [place] [address] Eosinophils (Bld) [#/Vol] 0.0 10*3/uL Normal 0.0-0.5 [facility] Comment on above: Performed By: #### L [id number] ####Assembly Machine Tender: MARY SOTELO ([id number])[facility])[address] [place] [address] [place] Eosinophils/100 WBC (Bld) 0.0 % Normal 0.0-6.0 [facility] Comment on above: Performed By: #### L [id number] ####Assembly Machine Tender: MARY SOTELO ([id number])[address] Erythrocyte distribution width (RBC) [Ratio] 15.2 % High 11.5-15.0 [facility] Comment on above: Performed By: #### L [id number] ####Assembly Machine Tender: MARY SOTELO ([id number])[address] Hematocrit (Bld) [Volume fraction] 23.1 % Low 35.0-47.0 [facility] Comment on above: Performed By: #### L [id number] ####Assembly Machine Tender: MARY SOTELO ([id number])[address] Hemoglobin (Bld) [Mass/Vol] 7.7 g/dL Low 11.7-16.0 [facility] Comment on above: Performed By: #### L [id number] ####Assembly Machine Tender: MARY SOTELO ([id number])[address] IMMATURE GRANS % 0.5 % Normal 0.0-2.0 [facility] Comment on above: Performed By: #### L [id number] ####Assembly Machine Tender: MARY SOTELO ([id number])[address] IMMATURE GRANS ABSOLUTE 0.0 10*3/uL Normal <0.1 [facility] Comment on above: Performed By: #### L [id number] ####Assembly Machine Tender: MARY SOTELO ([id number])[address] Lymphocytes (Bld) [#/Vol] 0.5 10*3/uL Low 1.0-4.3 [facility] Comment on above: Performed By: #### L [id number] ####Assembly Machine Tender: MARY SOTELO ([id number])[facility])[address] [place] [address] Lymphocytes/100 WBC (Bld) 6.9 % Low 15.0-45.0 [facility] Comment on above: Performed By: #### L [id number] ####Assembly Machine Tender: MARY SOTELO ([id number])[facility])[address] [place] [address] MCH (RBC) [Entitic mass] 28.6 pg Normal 26.0-34.0 [facility] Comment on above: Performed By: #### L [id number] ####Assembly Machine Tender: MARY SOTELO ([id number])[facility])[address] [place] [address] MCHC 33.3 % Normal 30.5-36.0 [facility] Comment on above: Performed By: #### L [id number] ####Assembly Machine Tender: MARY SOTELO ([id number])[facility])[address] [place] [address] MCV (RBC) [Entitic vol] 85.9 fL Normal 77.0-99.0 [facility] Comment on above: Performed By: #### L [id number] ####Assembly Machine Tender: MARY SOTELO ([id number])[facility])[address] [place] [address] Monocytes (Bld) [#/Vol] 0.4 10*3/uL Normal 0.0-0.9 [facility] Comment on above: Performed By: #### L [id number] ####Assembly Machine Tender: MARY SOTELO ([id number])[facility])[address] [place] [address] Monocytes/100 WBC (Bld) 6.5 % Normal 5.0-13.0 [facility] Comment on above: Performed By: #### L [id number] ####Assembly Machine Tender: MARY SOTELO ([id number])[facility])[address] [place] [address] NEUTROPHILS ABSOLUTE 5.6 10*3/uL Normal 1.8-7.5 [facility] Comment on above: Performed By: #### L [id number] ####Assembly Machine Tender: MARY SOTELO ([id number])[facility] ([facility])[address] [place] [address] Neutrophils/100 WBC (Bld) 86.1 % High 38.0-82.0 [facility] Comment on above: Performed By: #### L [id number] ####Assembly Machine Tender: MARY SOTELO ([id number])[facility] ([facility])[address] [place] [address] NRBC 0.0 /100 WBCs Normal 0.0-2.0 [facility] Comment on above: Performed By: #### L [id number] ####Assembly Machine Tender: MARY SOTELO ([id number])[facility] ([facility])[address] [place] [address] Platelet mean volume (Bld) [Entitic vol] 11.0 fL Normal 9.0-12.7 [facility] Comment on above: Performed By: #### L [id number] ####Assembly Machine Tender: MARY SOTELO ([id number])[facility] ([facility])[address] [place] [address] Platelets (Bld) [#/Vol] 141 10*3/uL Normal 140-440 [facility] Comment on above: Performed By: #### L [id number] ####Assembly Machine Tender: MARY SOTELO ([id number])[facility] ([facility])[address] [place] [address] RBC (Bld) [#/Vol] 2.69 10*6/uL Low 3.80-5.20 [facility] Comment on above: Performed By: #### L [id number] ####Assembly Machine Tender: MARY SOTELO ([id number])[facility] ([facility])[address] [place] [address] [place] WBC (Bld) [#/Vol] 6.5 10*3/uL Normal 3.6-10.7 [facility] Comment on above: Performed By: #### L [id number] ####Assembly Machine Tender: MARY SOTELO ([id number])[facility] [place] [address] CKon 07-29-2024 CK [Catalytic activity/Vol] 564 U/L High 30-170 [facility] Comment on above: Performed By: #### L AB19, LAB62 ####Assembly Machine Tender: MARY SOTELO ([id number])[facility] [place] [address] ECG 12-LEADon 07-29-2024 ECG 12-LEAD IMPRESSION: Sinus rhythm Multiple ventricular premature complexes Anterior infarct, old Electronically Signed On 07-29-2024 20:06:11 EDT by Eladio Valle Normal [facility] GLUCOSE, RANDOMon 07-29-2024 Glucose [Mass/Vol] 163 mg/dL High 70-100 [facility] Comment on above: Performed By: #### L [id number] ####Assembly Machine Tender: MARY SOTELO ([id number])[facility] ([facility])[address] [place] [address] IDNon 07-29-2024 IDN Normal [facility] Nursing Noteon 07-29-2024 Nursing Note Patient returned fro m IR. Normal [facility] Nursing Note Normal [facility] Nursing Note To IR for tunneled v as cath. Normal [facility] Nursing Note Dr. Mahajan came by an d said EEG could be discontinued. Normal [facility] Nursing Note Called IR. Patient will get her tunneled catheter this afternoon. Normal [facility] Nursing Note Dr. Heath and gisselle palacios here. They were notified of issues with vas cath. They will talk to Renal to decide what to do. Repostion line vs cath roel vs HD? Normal [facility] Nursing Note CRRT alarming extremely negative again. Blood returned. Set disposed. Vas cath lines flushed. Normal [facility] Nursing Note CRRT alarming extremely negative pressure. Lines clamped and disconnected. Vas cath ports flushed again. CRRT restarted. Normal [facility] Nursing Note CRRT alarming extremely negative. Lines clamped. Vas cath ports flushed. Red line still pulls back easier. Will keep return line attached to red port. Normal [facility] Nursing Note CRRT alarming extremely negative. Lines clamped. Vas cath ports flushed. Red port pulls back easier. Will attach return line to red port. CRRT restarted. Normal [facility] Nursing Note Cath roel removed fro m vas cath. Both ports flush easily but neither draw back easily. CRRT started. Normal [facility] Nursing Note CRRT paused d/t acce ss line clotting at approximately 2585-2427. Trouble shooting attempted. Cath flow ordered and given at 0646. Normal [facility] Progress Noteon 07-29-2024 Progress Note 07/29/24 1249 Wean Screen Safety Screen Spontaneous Breathing Trial (SBT - RT) (sedation not weaned or turned off) No SBT done. Normal [facility] Progress Note Normal [facility] Progress Note Normal [facility] Progress Note OCCUPATIONAL THERAPY [facility] Name/MRN: Sandy Deng ([id number]) Date: 07/29/2024 Pt remains on strict bed rest. Will continue to follow. Jamey Muro OT Normal [facility] Progress Note Normal [facility] Progress Note Normal [facility] Progress Note Normal [facility] RENAL FUNCTION PANELon 07-29 Albumin [Mass/Vol] 2.0 g/dL Low 3.5-5.0 [facility] Comment on above: Performed By: #### L [id number] ####Assembly Machine Tender: MARY SOTELO ([id number])[facility] [place] [address] Anion gap [Moles/Vol] 2 mmol/L Low 3-13 [facility] Comment on above: Performed By: #### L AB19 ####Assembly Machine Tender: MARY SOTELO ([id number])[facility] [place] [address] Calcium [Mass/Vol] 8.6 mg/dL Normal 8.4-10.4 [facility] Comment on above: Performed By: #### L AB19 ####Assembly Machine Tender: MARY SOTELO ([id number])[facility] ([facility])[address] [place] [address] Chloride [Moles/Vol] 106 mmol/L Normal 98-107 [facility] Comment on above: Performed By: #### L AB19 ####Assembly Machine Tender: MARY SOTELO ([id number])[facility] [place] [address] [place] CO2 [Moles/Vol] 26 mmol/L Normal 22-30 [facility] Comment on above: Performed By: #### L AB19 ####Assembly Machine Tender: MARY SOTELO ([id number])[facility] ([facility])[address] [place] [address] Creatinine [Mass/Vol] 1.94 mg/dL High 0.52-1.04 [facility] Comment on above: Performed By: #### L AB19 ####Assembly Machine Tender: MARY SOTELO ([id number])[facility] ([facility])[address] [place] [address] [place] GLOMERULAR FILTRATION RATE ML/MIN/1.73 SQ M.PREDICTED 28.5 mL/min/1.73m*2 Low >60.0 [facility] Comment on above: Result Comment: Calc ulation based on the Chronic Kidney Disease Epidemiology Collaboration (CKD-EPI) equation refit without adjustment for race Performed By: #### L AB19 ####Assembly Machine Tender: MARY SOTELO ([id number])[facility] [place] [address] [place] Glucose [Mass/Vol] 33 mg/dL Critically low 70-100 [facility] Comment on above: Performed By: #### L AB19 ####Assembly Machine Tender: MARY SOTELO ([id number])[facility] [place] [address] [place] Phosphate [Mass/Vol] 4.4 mg/dL Normal 2.5-4.5 [facility] Comment on above: Performed By: #### L AB19 ####Assembly Machine Tender: MARY SOTELO ([id number])[facility] ([facility])[address] [place] [address] Potassium [Moles/Vol] 5.0 mmol/L Normal 3.5-5.1 [facility] Comment on above: Performed By: #### L AB19 ####Assembly Machine Tender: MARY SOTELO ([id number])[facility] ([facility])[address] [place] [address] Sodium [Moles/Vol] 133 mmol/L Low 135-145 [facility] Comment on above: Performed By: #### L AB19 ####Assembly Machine Tender: MARY SOTELO ([id number])[facility])[address] [place] [address] Urea nitrogen [Mass/Vol] 41 mg/dL High 7-17 [facility] Comment on above: Performed By: #### L AB19 ####Assembly Machine Tender: MARY SOTELO ([id number])[facility] ([facility])[address] [place] [address] Albumin [Mass/Vol] 1.9 g/dL Low 3.5-5.0 [facility] Comment on above: Performed By: #### L AB19, LAB62 ####Assembly Machine Tender: MARY SOTELO ([id number])[facility] ([facility])[address] [place] [address] Anion gap [Moles/Vol] 2 mmol/L Low 3-13 [facility] Comment on above: Performed By: #### L AB19, LAB62 ####Assembly Machine Tender: MARY SOTELO ([id number])[facility] ([facility])[address] [place] [address] Calcium [Mass/Vol] 7.6 mg/dL Low 8.4-10.4 [facility] Comment on above: Performed By: #### L AB19, LAB62 ####Assembly Machine Tender: MARY SOTELO ([id number])[facility] ([facility])[address] [place] [address] Chloride [Moles/Vol] 104 mmol/L Normal 98-107 [facility] Comment on above: Performed By: #### L AB19, LAB62 ####Assembly Machine Tender: MARY SOTELO ([id number])[facility] ([facility])[address] [place] [address] CO2 [Moles/Vol] 26 mmol/L Normal 22-30 [facility] Comment on above: Performed By: #### L AB19, LAB62 ####Assembly Machine Tender: MARY SOTELO ([id number])[facility] ([facility])[address] [place] [address] Creatinine [Mass/Vol] 1.59 mg/dL High 0.52-1.04 [facility] Comment on above: Performed By: #### L AB19, LAB62 ####Assembly Machine Tender: MARY SOTELO ([id number])[facility] ([facility])[address] [place] [address] GLOMERULAR FILTRATION RATE ML/MIN/1.73 SQ M.PREDICTED 36.1 mL/min/1.73m*2 Low >60.0 [facility] Comment on above: Result Comment: Calc ulation based on the Chronic Kidney Disease Epidemiology Collaboration (CKD-EPI) equation refit without adjustment for race Performed By: #### L AB19, LAB62 ####Assembly Machine Tender: MARY [id number])[facility] ([facility])[address] [place] [address] Glucose [Mass/Vol] 145 mg/dL High 70-100 [facility] Comment on above: Performed By: #### L AB19, LAB62 ####Assembly Machine Tender: MARY [id number])[facility])[address] [place] [address] Phosphate [Mass/Vol] 3.7 mg/dL Normal 2.5-4.5 [facility] Comment on above: Performed By: #### L AB19, LAB62 ####Assembly Machine Tender: MARY [id number])[facility] [place] [address] [place] Potassium [Moles/Vol] 4.9 mmol/L Normal 3.5-5.1 [facility] Comment on above: Performed By: #### L AB19, LAB62 ####Assembly Machine Tender: MARY SOTELO ([id number])[facility] ([facility])[address] [place] [address] Sodium [Moles/Vol] 131 mmol/L Low 135-145 [facility] Comment on above: Performed By: #### L AB19, LAB62 ####Assembly Machine Tender: MARY SOTELO ([id number])[facility] ([facility])[address] [place] [address] Urea nitrogen [Mass/Vol] 35 mg/dL High 7-17 [facility] Comment on above: Performed By: #### L AB19, LAB62 ####Assembly Machine Tender: MARY SOTELO ([id number])[facility] ([facility])[address] [place] [address] Albumin [Mass/Vol] 2.0 g/dL Low 3.5-5.0 [facility] Comment on above: Performed By: #### L AB19 ####Assembly Machine Tender: MARY SOTELO ([id number])[facility] ([facility])[address] [place] [address] Anion gap [Moles/Vol] 1 mmol/L Low 3-13 [facility] Comment on above: Performed By: #### L AB19 ####Assembly Machine Tender: MARY SOTELO ([id number])[facility] ([facility])[address] [place] [address] [place] Calcium [Mass/Vol] 7.5 mg/dL Low 8.4-10.4 [facility] Comment on above: Performed By: #### L AB19 ####Assembly Machine Tender: MARY SOTELO ([id number])[facility] ([facility])[address] [place] [address] [place] Chloride [Moles/Vol] 104 mmol/L Normal 98-107 [facility] Comment on above: Performed By: #### L AB19 ####Assembly Machine Tender: MARY SOTELO ([id number])[facility])[address] [place] [address] CO2 [Moles/Vol] 25 mmol/L Normal 22-30 [facility] Comment on above: Performed By: #### L AB19 ####Assembly Machine Tender: MARY SOTELO ([id number])[facility])[address] [place] [address] Creatinine [Mass/Vol] 1.32 mg/dL High 0.52-1.04 [facility] Comment on above: Performed By: #### L AB19 ####Assembly Machine Tender: MARY SOTELO ([id number])[facility])[address] [place] [address] GLOMERULAR FILTRATION RATE ML/MIN/1.73 SQ M.PREDICTED 45.2 mL/min/1.73m*2 Low >60.0 [facility] Comment on above: Result Comment: Calc ulation based on the Chronic Kidney Disease Epidemiology Collaboration (CKD-EPI) equation refit without adjustment for race Performed By: #### L AB19 ####Assembly Machine Tender: MARY SOTELO ([id number])[facility])[address] [place] [address] Glucose [Mass/Vol] 206 mg/dL High 70-100 [facility] Comment on above: Performed By: #### L AB19 ####Assembly Machine Tender: MARY SOTELO ([id number])[facility])[address] [place] [address] Phosphate [Mass/Vol] 3.2 mg/dL Normal 2.5-4.5 [facility] Comment on above: Performed By: #### L AB19 ####Assembly Machine Tender: MARY SOTELO ([id number])[facility])[address] [place] [address] Potassium [Moles/Vol] 5.2 mmol/L High 3.5-5.1 [facility] Comment on above: Performed By: #### L AB19 ####Assembly Machine Tender: MARY SOTELO ([id number])[facility] ([facility])[address] [place] [address] Sodium [Moles/Vol] 131 mmol/L Low 135-145 [facility] Comment on above: Performed By: #### L AB19 ####Assembly Machine Tender: MARY SOTELO ([id number])[facility])[address] [place] [address] Urea nitrogen [Mass/Vol] 28 mg/dL High 7-17 [facility] Comment on above: Performed By: #### L AB19 ####Assembly Machine Tender: MARY SOTELO ([id number])[facility])[address] [place] [address] Respiratory Cultureon 2023 RESPC Normal [facility] Comment on above: Performed By: #### M 100.2400, M100.2000 ####[facility] [id number] [place], [address] XR CHEST 1 VIEWon 07-29-2024 XR CHEST 1 VIEW Normal [facility] BASIC METABOLIC PANELon 07-05 Anion gap [Moles/Vol] 4 mmol/L Normal 3-13 [facility] Comment on above: Performed By: #### L AB103, JSS210, LAB15 ####Assembly Machine Tender: MARY SOTELO ([id number])[facility] ([facility])[address] [place] [address] Calcium [Mass/Vol] 7.4 mg/dL Low 8.4-10.4 [facility] Comment on above: Performed By: #### L AB103, [id number], LAB15 ####Assembly Machine Tender: MARY SOTELO ([id number])[facility])[address] [place] [address] Chloride [Moles/Vol] 104 mmol/L Normal 98-107 [facility] Comment on above: Performed By: #### L AB103, [id number], LAB15 ####Assembly Machine Tender: MARY SOTELO ([id number])[facility] ([facility])[address] [place] [address] CO2 [Moles/Vol] 23 mmol/L Normal 22-30 [facility] Comment on above: Performed By: #### L AB103, FUW987, LAB15 ####Assembly Machine Tender: MARY SOTELO ([id number])[facility] [place] [address] Creatinine [Mass/Vol] 1.80 mg/dL High 0.52-1.04 [facility] Comment on above: Performed By: #### L AB103, RHG806, LAB15 ####Assembly Machine Tender: MARY SOTELO ([id number])[facility] ([facility])[address] [place] [address] GLOMERULAR FILTRATION RATE ML/MIN/1.73 SQ M.PREDICTED 31.1 mL/min/1.73m*2 Low >60.0 [facility] Comment on above: Result Comment: Calc ulation based on the Chronic Kidney Disease Epidemiology Collaboration (CKD-EPI) equation refit without adjustment for race Performed By: #### L AB103, [id number], LAB15 ####Assembly Machine Tender: MARY SOTELO ([id number])[facility] ([facility])[address] [place] [address] Glucose [Mass/Vol] 143 mg/dL High 70-100 [facility] Comment on above: Performed By: #### L AB103, RAP179, LAB15 ####Assembly Machine Tender: MARY SOTELO ([id number])[facility] ([facility])[address] [place] [address] [place] Potassium [Moles/Vol] 4.5 mmol/L Normal 3.5-5.1 [facility] Comment on above: Performed By: #### L AB103, [id number], LAB15 ####Assembly Machine Tender: MARY SOTELO ([id number])[facility] ([facility])[address] [place] [address] [place] Sodium [Moles/Vol] 131 mmol/L Low 135-145 [facility] Comment on above: Performed By: #### L AB103, [id number], LAB15 ####Assembly Machine Tender: MARY SOTELO ([id number])[facility])[address] [place] [address] Urea nitrogen [Mass/Vol] 34 mg/dL High 7-17 [facility] Comment on above: Performed By: #### L AB103, [id number], LAB15 ####Assembly Machine Tender: MARY SOTELO ([id number])[facility])[address] [place] [address] BLOOD GAS ARTERIALon 024 Base excess Calc (Bld) [Moles/Vol] -1.2000 mmol/L Normal -3.0-3.0 [facility] Comment on above: Performed By: #### L AB76 ####Assembly Machine Tender: MARY SOTELO ([id number])[facility] ([facility])[address] [place] [address] CO2 [Moles/Vol] 24.6 mmol/L Normal 23.0-27.0 [facility] Comment on above: Performed By: #### L AB76 ####Assembly Machine Tender: MARY SOTELO ([id number])[facility])[address] [place] [address] HCO3 (Bld) [Moles/Vol] 23.4 mmol/L Normal 21.0-25.0 [facility] Comment on above: Performed By: #### L AB76 ####Assembly Machine Tender: MARY SOTELO ([id number])[facility])[address] [place] [address] Hemoglobin (Bld) [Mass/Vol] 9.2 g/dL Normal Screen only [facility] Comment on above: Performed By: #### L AB76 ####Assembly Machine Tender: MARY SOTELO ([id number])[facility])[address] [place] [address] OXYGEN SATURATION (%) IN ARTERIAL BLOOD 98.1 % Normal 95.0-100.0 [facility] Comment on above: Performed By: #### L AB76 ####Assembly Machine Tender: MARY SOTELO ([id number])[facility] ([facility])[address] [place] [address] PCO2 ARTERIAL 38.6 mm Hg Normal >35.0-<45.0 [facility] Comment on above: Performed By: #### L AB76 ####Assembly Machine Tender: MARY SOTELO ([id number])[facility] ([facility])[address] [place] [address] PH ARTERIAL 7.401 Normal 7.350-7.450 [facility] Comment on above: Performed By: #### L AB76 ####Assembly Machine Tender: MARY SOTELO ([id number])[facility] ([facility])[address] [place] [address] PO2 ARTERIAL 120.0 mm Hg High 80.0-100.0 [facility] Comment on above: Performed By: #### L AB76 ####Assembly Machine Tender: MARY SOTELO ([id number])[facility] ([facility])[address] [place] [address] SOURCE OF OXYGEN Vent Normal [facility] Comment on above: Performed By: #### L AB76 ####Assembly Machine Tender: MARY SOTELO ([id number])[facility] ([facility])[address] [place] [address] CALCIUM, IONIZEDon 4 CALCIUM IONIZED 4.10 mg/dL Low 4.30-5.20 [facility] Comment on above: Performed By: #### L AB54 ####Assembly Machine Tender: MARY SOTELO ([id number])[facility] ([facility])[address] [place] [address] PH, IONIZED CALCIUM 7.52 High 7.31-7.46 [facility] Comment on above: Performed By: #### L AB54 ####Assembly Machine Tender: MARY SOTELO ([id number])[facility])[address] [place] [address] CALCIUM IONIZED 4.30 mg/dL Normal 4.30-5.20 [facility] Comment on above: Performed By: #### L AB54 ####Assembly Machine Tender: MARY SOTELO ([id number])[facility])[address] [place] [address] PH, IONIZED CALCIUM 7.46 Normal 7.31-7.46 [facility] Comment on above: Performed By: #### L AB54 ####Assembly Machine Tender: MARY SOTELO ([id number])[facility])[address] [place] [address] CALCIUM IONIZED 4.20 mg/dL Low 4.30-5.20 [facility] Comment on above: Performed By: #### L AB54 ####Assembly Machine Tender: MARY SOTELO ([id number])[facility])[address] [place] [address] PH, IONIZED CALCIUM 7.38 Normal 7.31-7.46 [facility] Comment on above: Performed By: #### L AB54 ####Assembly Machine Tender: MARY SOTELO ([id number])[facility])[address] [place] [address] CALCIUM IONIZED 4.10 mg/dL Low 4.30-5.20 [facility] Comment on above: Performed By: #### L AB54 ####Assembly Machine Tender: MARY SOTELO ([id number])[facility])[address] [place] [address] PH, IONIZED CALCIUM 7.44 Normal 7.31-7.46 [facility] Comment on above: Performed By: #### L AB54 ####Assembly Machine Tender: MARY SOTELO ([id number])[facility])[address] [place] [address] CARECOORDon 07-28-2024 CARECOORD Normal [facility] CBC WITH AUTO DIFFERENTIALon 07-28-2024 Basophils (Bld) [#/Vol] 0.0 10*3/uL Normal 0.0-0.2 [facility] Comment on above: Performed By: #### L [id number] ####Assembly Machine Tender: MARY SOTELO ([id number])[facility])[address] [place] [address] Basophils/100 WBC (Bld) 0.1 % Normal 0.0-2.0 [facility] Comment on above: Performed By: #### L [id number] ####Assembly Machine Tender: MARY SOTELO ([id number])[facility])[address] [place] [address] Eosinophils (Bld) [#/Vol] 0.0 10*3/uL Normal 0.0-0.5 [facility] Comment on above: Performed By: #### L [id number] ####Assembly Machine Tender: MARY SOTELO ([id number])[address] Eosinophils/100 WBC (Bld) 0.0 % Normal 0.0-6.0 [facility] Comment on above: Performed By: #### L [id number] ####Assembly Machine Tender: MARY SOTELO ([id number])[facility])[address] [place] [address] Erythrocyte distribution width (RBC) [Ratio] 15.0 % Normal 11.5-15.0 [facility] Comment on above: Performed By: #### L [id number] ####Assembly Machine Tender: MARY SOTELO ([id number])[address] Hematocrit (Bld) [Volume fraction] 25.8 % Low 35.0-47.0 [facility] Comment on above: Performed By: #### L [id number] ####Assembly Machine Tender: MARY SOTELO ([id number])[address] Hemoglobin (Bld) [Mass/Vol] 8.8 g/dL Low 11.7-16.0 [facility] Comment on above: Performed By: #### L [id number] ####Assembly Machine Tender: MARY SOTELO ([id number])[facility])[address] [place] [address] IMMATURE GRANS % 0.4 % Normal 0.0-2.0 [facility] Comment on above: Performed By: #### L [id number] ####Assembly Machine Tender: MARY SOTELO ([id number])[facility])[address] [place] [address] IMMATURE GRANS ABSOLUTE 0.1 10*3/uL High <0.1 [facility] Comment on above: Performed By: #### L [id number] ####Assembly Machine Tender: MARY SOTELO ([id number])[facility])[address] [place] [address] Lymphocytes (Bld) [#/Vol] 0.3 10*3/uL Low 1.0-4.3 [facility] Comment on above: Performed By: #### L [id number] ####Assembly Machine Tender: MARY SOTELO ([id number])[facility])[address] [place] [address] Lymphocytes/100 WBC (Bld) 2.9 % Low 15.0-45.0 [facility] Comment on above: Performed By: #### L [id number] ####Assembly Machine Tender: MARY SOTELO ([id number])[facility])[address] [place] [address] MCH (RBC) [Entitic mass] 28.9 pg Normal 26.0-34.0 [facility] Comment on above: Performed By: #### L [id number] ####Assembly Machine Tender: MARY SOTELO ([id number])[facility])[address] [place] [address] MCHC 34.1 % Normal 30.5-36.0 [facility] Comment on above: Performed By: #### L [id number] ####Assembly Machine Tender: MARY SOTELO ([id number])[facility])[address] [place] [address] MCV (RBC) [Entitic vol] 84.6 fL Normal 77.0-99.0 [facility] Comment on above: Performed By: #### L [id number] ####Assembly Machine Tender: MARY SOTELO ([id number])[facility])[address] [place] [address] Monocytes (Bld) [#/Vol] 0.4 10*3/uL Normal 0.0-0.9 [facility] Comment on above: Performed By: #### L [id number] ####Assembly Machine Tender: MARY SOTELO ([id number])[facility] ([facility])[address] [place] [address] Monocytes/100 WBC (Bld) 3.6 % Low 5.0-13.0 [facility] Comment on above: Performed By: #### L [id number] ####Assembly Machine Tender: MARY SOTELO ([id number])[facility])[address] [place] [address] NEUTROPHILS ABSOLUTE 10.7 10*3/uL High 1.8-7.5 [facility] Comment on above: Performed By: #### L [id number] ####Assembly Machine Tender: MARY SOTELO ([id number])[facility])[address] [place] [address] Neutrophils/100 WBC (Bld) 93.0 % High 38.0-82.0 [facility] Comment on above: Performed By: #### L [id number] ####Assembly Machine Tender: MARY SOTELO ([id number])[facility])[address] [place] [address] NRBC 0.0 /100 WBCs Normal 0.0-2.0 [facility] Comment on above: Performed By: #### L [id number] ####Assembly Machine Tender: MARY SOTELO ([id number])[facility])[address] [place] [address] Platelet mean volume (Bld) [Entitic vol] 10.5 fL Normal 9.0-12.7 [facility] Comment on above: Performed By: #### L [id number] ####Assembly Machine Tender: MARY SOTELO ([id number])[facility] ([facility])[address] [place] [address] Platelets (Bld) [#/Vol] 160 10*3/uL Normal 140-440 [facility] Comment on above: Performed By: #### L [id number] ####Assembly Machine Tender: MARY SOTELO ([id number])[facility] [facility] ([facility])[address] [place] [address] RBC (Bld) [#/Vol] 3.05 10*6/uL Low 3.80-5.20 [facility] Comment on above: Performed By: #### L [id number] ####Assembly Machine Tender: MARY SOTELO ([id number])[facility] ([facility])[address] [place] [address] WBC (Bld) [#/Vol] 11.5 10*3/uL High 3.6-10.7 [facility] Comment on above: Performed By: #### L [id number] ####Assembly Machine Tender: MARY SOTELO ([id number])[facility] ([facility])[address] [place] [address] COMPREHENSIVE METABOLIC PANE [place] 07-28-2024 Albumin [Mass/Vol] 2.2 g/dL Low 3.5-5.0 [facility] Comment on above: Performed By: #### L AB103, [id number], LAB17 ####Assembly Machine Tender: MARY SOTELO ([id number])[facility] ([facility])[address] [place] [address] ALP [Catalytic activity/Vol] 78 U/L Normal 38-126 [facility] Comment on above: Performed By: #### L AB103, [id number], LAB17 ####Assembly Machine Tender: MARY SOTELO ([id number])[facility])[address] [place] [address] ALT [Catalytic activity/Vol] 23 U/L Normal 0-34 [facility] Comment on above: Performed By: #### L AB103, [id number], LAB17 ####Assembly Machine Tender: MARY SOTELO ([id number])[facility] [place] [address] Anion gap [Moles/Vol] 4 mmol/L Normal 3-13 [facility] Comment on above: Performed By: #### L AB103, [id number], LAB17 ####Assembly Machine Tender: MARY SOTELO ([id number])[facility] [place] [address] AST [Catalytic activity/Vol] 44 U/L Normal 15-46 [facility] Comment on above: Performed By: #### L AB103, [id number], LAB17 ####Assembly Machine Tender: MARY SOTELO ([id number])[facility] [place] [address] Bilirubin [Mass/Vol] 0.5 mg/dL Normal 0.2-1.3 [facility] Comment on above: Performed By: #### L AB103, [id number], LAB17 ####Assembly Machine Tender: MARY SOTELO ([id number])[facility] [place] [address] Calcium [Mass/Vol] 7.3 mg/dL Low 8.4-10.4 [facility] Comment on above: Performed By: #### L AB103, [id number], LAB17 ####Assembly Machine Tender: MARY SOTELO ([id number])[facility] [place] [address] [place] Chloride [Moles/Vol] 102 mmol/L Normal 98-107 [facility] Comment on above: Performed By: #### L AB103, [id number], LAB17 ####Assembly Machine Tender: MARY SOTELO ([id number])[facility] ([facility])[address] [place] [address] [place] CO2 [Moles/Vol] 24 mmol/L Normal 22-30 [facility] Comment on above: Performed By: #### L AB103, [id number], LAB17 ####Assembly Machine Tender: MARY SOTELO ([id number])[facility] ([facility])[address] [place] [address] [place] Creatinine [Mass/Vol] 1.50 mg/dL High 0.52-1.04 [facility] Comment on above: Performed By: #### L AB103, [id number], LAB17 ####Assembly Machine Tender: MARY SOTELO ([id number])[facility])[address] [place] [address] [place] GLOMERULAR FILTRATION RATE ML/MIN/1.73 SQ M.PREDICTED 38.8 mL/min/1.73m*2 Low >60.0 [facility] Comment on above: Result Comment: Calc ulation based on the Chronic Kidney Disease Epidemiology Collaboration (CKD-EPI) equation refit without adjustment for race Performed By: #### Dora AB103, [id number], LAB17 ####Assembly Machine Tender: MARY SOTELO ([id number])[facility] ([facility])[address] [place] [address] Glucose [Mass/Vol] 149 mg/dL High 70-100 [facility] Comment on above: Performed By: #### Dora AB103, SBE409, LAB17 ####Assembly Machine Tender: MARY SOTELO ([id number])[facility] ([facility])[address] [place] [address] Potassium [Moles/Vol] 4.5 mmol/L Normal 3.5-5.1 [facility] Comment on above: Performed By: #### Dora AB103, ZIE713, LAB17 ####Assembly Machine Tender: MARY SOTELO ([id number])[facility] ([facility])[address] [place] [address] [place] Protein [Mass/Vol] 4.6 g/dL Low 6.3-8.2 [facility] Comment on above: Performed By: #### L AB103, LQX711, LAB17 ####Assembly Machine Tender: MARY SOTELO ([id number])[facility])[address] [place] [address] [place] Sodium [Moles/Vol] 130 mmol/L Low 135-145 [facility] Comment on above: Performed By: #### L AB103, DZJ662, LAB17 ####Assembly Machine Tender: MARY SOTELO ([id number])[facility] ([facility])[address] [place] [address] Urea nitrogen [Mass/Vol] 31 mg/dL High 7-17 [facility] Comment on above: Performed By: #### L AB103, [id number], LAB17 ####Assembly Machine Tender: MARY SOTELO ([id number])[facility] ([facility])[address] [place] [address] [place] Consulton 07-28-2024 Consult Normal [facility] ECG 12-LEADon 07-28-2024 ECG 12-LEAD IMPRESSION: Sinus rhythm Multiple ventricular premature complexes Anterior infarct, old Borderline T abnormalities Electronically Signed On 07-28-2024 12:41:46 EDT by Keisha Acosta Normal [facility] IDNon 07-28-2024 IDN Normal [facility] MAGNESIUMon 07-28-2024 Magnesium [Mass/Vol] 2.7 mg/dL High 1.6-2.3 [facility] Comment on above: Performed By: #### L AB103, EBT627, LAB17 ####Assembly Machine Tender: MARY SOTELO ([id number])[facility] ([facility])[address] [place] [address] Magnesium [Mass/Vol] 2.2 mg/dL Normal 1.6-2.3 [facility] Comment on above: Performed By: #### L AB103, FJM905, LAB15 ####Assembly Machine Tender: MARY SOTELO ([id number])[facility] ([facility])[address] [place] [address] PHOSPHORUSon 07-28-2024 Phosphate [Mass/Vol] 3.5 mg/dL Normal 2.5-4.5 [facility] Comment on above: Performed By: #### L AB103, XQS605, LAB17 ####Assembly Machine Tender: MARY SOTELO ([id number])[facility])[address] [place] [address] Phosphate [Mass/Vol] 3.6 mg/dL Normal 2.5-4.5 [facility] Comment on above: Performed By: #### L AB103, FSA745, LAB15 ####Assembly Machine Tender: MARY SOTELO ([id number])[facility] ([facility])[address] [place] [address] Progress Noteon 07-28-2024 Progress Note Normal [facility] Progress Note Normal [facility] Progress Note Normal [facility] Progress Note Normal [facility] RENAL FUNCTION PANELon 07-28 Albumin [Mass/Vol] 2.2 g/dL Low 3.5-5.0 [facility] Comment on above: Performed By: #### L AB19 ####Assembly Machine Tender: MARY SOTELO ([id number])[facility] ([facility])[address] [place] [address] Anion gap [Moles/Vol] 0 mmol/L Low 3-13 [facility] Comment on above: Performed By: #### L AB19 ####Assembly Machine Tender: MARY SOTELO ([id number])[facility] ([facility])[address] [place] [address] Calcium [Mass/Vol] 7.4 mg/dL Low 8.4-10.4 [facility] Comment on above: Performed By: #### L AB19 ####Assembly Machine Tender: MARY SOTELO ([id number])[facility] ([facility])[address] [place] [address] [place] Chloride [Moles/Vol] 104 mmol/L Normal 98-107 [facility] Comment on above: Performed By: #### L AB19 ####Assembly Machine Tender: MARY SOTELO ([id number])[facility] ([facility])[address] [place] [address] [place] CO2 [Moles/Vol] 26 mmol/L Normal 22-30 [facility] Comment on above: Performed By: #### L AB19 ####Assembly Machine Tender: MARY SOTELO ([id number])[facility] ([facility])[address] [place] [address] [place] Creatinine [Mass/Vol] 1.26 mg/dL High 0.52-1.04 [facility] Comment on above: Performed By: #### L AB19 ####Assembly Machine Tender: MARY SOTELO ([id number])[facility])[address] [place] [address] GLOMERULAR FILTRATION RATE ML/MIN/1.73 SQ M.PREDICTED 47.8 mL/min/1.73m*2 Low >60.0 [facility] Comment on above: Result Comment: Calc ulation based on the Chronic Kidney Disease Epidemiology Collaboration (CKD-EPI) equation refit without adjustment for race Performed By: #### L AB19 ####Assembly Machine Tender: MARY SOTELO ([id number])[facility] ([facility])[address] [place] [address] Glucose [Mass/Vol] 123 mg/dL High 70-100 [facility] Comment on above: Performed By: #### L AB19 ####Assembly Machine Tender: MARY SOTELO ([id number])[facility] ([facility])[address] [place] [address] Phosphate [Mass/Vol] 2.4 mg/dL Low 2.5-4.5 [facility] Comment on above: Performed By: #### L AB19 ####Assembly Machine Tender: MARY SOTELO ([id number])[facility] ([facility])[address] [place] [address] Potassium [Moles/Vol] 4.6 mmol/L Normal 3.5-5.1 [facility] Comment on above: Performed By: #### L AB19 ####Assembly Machine Tender: MARY SOTELO ([id number])[facility] ([facility])[address] [place] [address] [place] Sodium [Moles/Vol] 130 mmol/L Low 135-145 [facility] Comment on above: Performed By: #### L AB19 ####Assembly Machine Tender: MARY SOTELO ([id number])[facility] ([facility])[address] [place] [address] [place] Urea nitrogen [Mass/Vol] 28 mg/dL High 7-17 [facility] Comment on above: Performed By: #### L AB19 ####Assembly Machine Tender: MARY SOTELO ([id number])[facility] [place] [address] Albumin [Mass/Vol] 2.1 g/dL Low 3.5-5.0 [facility] Comment on above: Performed By: #### L AB19 ####Assembly Machine Tender: MARY SOTELO ([id number])[facility] [place] [address] Anion gap [Moles/Vol] 3 mmol/L Normal 3-13 [facility] Comment on above: Performed By: #### L AB19 ####Assembly Machine Tender: MARY SOTELO ([id number])[facility] ([facility])[address] [place] [address] Calcium [Mass/Vol] 7.8 mg/dL Low 8.4-10.4 [facility] Comment on above: Performed By: #### L AB19 ####Assembly Machine Tender: MARY SOTELO ([id number])[facility] [place] [address] [place] Chloride [Moles/Vol] 103 mmol/L Normal 98-107 [facility] Comment on above: Performed By: #### L AB19 ####Assembly Machine Tender: MARY SOTELO ([id number])[facility] [place] [address] [place] CO2 [Moles/Vol] 26 mmol/L Normal 22-30 [facility] Comment on above: Performed By: #### L AB19 ####Assembly Machine Tender: MARY SOTELO ([id number])[facility])[address] Creatinine [Mass/Vol] 1.33 mg/dL High 0.52-1.04 [facility] Comment on above: Performed By: #### L AB19 ####Assembly Machine Tender: MARY SOTELO ([id number])[facility] [place] [address] GLOMERULAR FILTRATION RATE ML/MIN/1.73 SQ M.PREDICTED 44.8 mL/min/1.73m*2 Low >60.0 [facility] Comment on above: Result Comment: Calc ulation based on the Chronic Kidney Disease Epidemiology Collaboration (CKD-EPI) equation refit without adjustment for race Performed By: #### L AB19 ####Assembly Machine Tender: MARY SOTELO ([id number])[facility] ([facility])[address] [place] [address] Glucose [Mass/Vol] 139 mg/dL High 70-100 [facility] Comment on above: Performed By: #### L AB19 ####Assembly Machine Tender: MARY SOTELO ([id number])[facility])[address] [place] [address] Phosphate [Mass/Vol] 2.7 mg/dL Normal 2.5-4.5 [facility] Comment on above: Performed By: #### L AB19 ####Assembly Machine Tender: MARY SOTELO ([id number])[facility] ([facility])[address] [place] [address] Potassium [Moles/Vol] 4.2 mmol/L Normal 3.5-5.1 [facility] Comment on above: Performed By: #### L AB19 ####Assembly Machine Tender: MARY SOTELO ([id number])[facility] ([facility])[address] [place] [address] Sodium [Moles/Vol] 131 mmol/L Low 135-145 [facility] Comment on above: Performed By: #### L AB19 ####Assembly Machine Tender: MARY SOTELO ([id number])[facility])[address] [place] [address] [place] Urea nitrogen [Mass/Vol] 30 mg/dL High 7-17 [facility] Comment on above: Performed By: #### L AB19 ####Assembly Machine Tender: MARY SOTELO ([id number])[facility] ([facility])[address] [place] [address] [place] XR CHEST 1 VIEWon 07-28-2024 XR CHEST 1 VIEW Normal [facility] BASIC METABOLIC PANELon 09-2 Anion gap [Moles/Vol] 6 mmol/L Normal 3-13 [facility] Comment on above: Performed By: #### L AB103, LAB15 ####Assembly Machine Tender: MARY SOTELO ([id number])[facility] ([facility])[address] [place] [address] Calcium [Mass/Vol] 7.3 mg/dL Low 8.4-10.4 [facility] Comment on above: Performed By: #### L AB103, LAB15 ####Assembly Machine Tender: MARY SOTELO ([id number])[facility] ([facility])[address] [place] [address] Chloride [Moles/Vol] 102 mmol/L Normal 98-107 [facility] Comment on above: Performed By: #### Dora PARISH103, LAB15 ####Assembly Machine Tender: MARY SOTELO ([id number])[facility] ([facility])[address] [place] [address] CO2 [Moles/Vol] 24 mmol/L Normal 22-30 [facility] Comment on above: Performed By: #### L AB103, LAB15 ####Assembly Machine Tender: MARY SOTELO ([id number])[facility] ([facility])[address] [place] [address] Creatinine [Mass/Vol] 2.18 mg/dL High 0.52-1.04 [facility] Comment on above: Performed By: #### L AB103, LAB15 ####Assembly Machine Tender: MARY SOTELO ([id number])[facility] ([facility])[address] [place] [address] [place] GLOMERULAR FILTRATION RATE ML/MIN/1.73 SQ M.PREDICTED 24.7 mL/min/1.73m*2 Low >60.0 [facility] Comment on above: Result Comment: Calc ulation based on the Chronic Kidney Disease Epidemiology Collaboration (CKD-EPI) equation refit without adjustment for race Performed By: #### L AB103, LAB15 ####Assembly Machine Tender: MARY SOTELO ([id number])[facility] [place] [address] Glucose [Mass/Vol] 87 mg/dL Normal 70-100 [facility] Comment on above: Performed By: #### L AB103, LAB15 ####Assembly Machine Tender: MARY SOTELO ([id number])[facility] ([facility])[address] [place] [address] Potassium [Moles/Vol] 3.6 mmol/L Normal 3.5-5.1 [facility] Comment on above: Performed By: #### L AB103, LAB15 ####Assembly Machine Tender: MARY SOTELO ([id number])[facility] ([facility])[address] [place] [address] Sodium [Moles/Vol] 131 mmol/L Low 135-145 [facility] Comment on above: Performed By: #### L AB103, LAB15 ####Assembly Machine Tender: MARY SOTELO ([id number])[facility] ([facility])[address] [place] [address] [place] Urea nitrogen [Mass/Vol] 41 mg/dL High 7-17 [facility] Comment on above: Performed By: #### L AB103, LAB15 ####Assembly Machine Tender: MARY SOTELO ([id number])[facility] ([facility])[address] [place] [address] BLOOD GAS ARTERIALon 07-27- 024 Base excess Calc (Bld) [Moles/Vol] 0.4 mmol/L Normal -3.0-3.0 [facility] Comment on above: Performed By: #### L AB76 ####Assembly Machine Tender: MARY SOTELO ([id number])[facility] ([facility])[address] [place] [address] [place] CO2 [Moles/Vol] 26.5 mmol/L Normal 23.0-27.0 [facility] Comment on above: Performed By: #### L AB76 ####Assembly Machine Tender: MARY SOTELO ([id number])[facility] ([facility])[address] [place] [address] HCO3 (Bld) [Moles/Vol] 25.3 mmol/L High 21.0-25.0 [facility] Comment on above: Performed By: #### L AB76 ####Assembly Machine Tender: MARY SOTELO ([id number])[facility] ([facility])[address] [place] [address] Hemoglobin (Bld) [Mass/Vol] 8.9 g/dL Normal Screen only [facility] Comment on above: Performed By: #### L AB76 ####Assembly Machine Tender: MARY SOTELO ([id number])[facility] ([facility])[address] [place] [address] OXYGEN SATURATION (%) IN ARTERIAL BLOOD 97.1 % Normal 95.0-100.0 [facility] Comment on above: Performed By: #### L AB76 ####Assembly Machine Tender: MARY SOTELO ([id number])[facility] ([facility])[address] [place] [address] PCO2 ARTERIAL 41.9 mm Hg Normal >35.0-<45.0 [facility] Comment on above: Performed By: #### L AB76 ####Assembly Machine Tender: MARY SOTELO ([id number])[facility] ([facility])[address] [place] [address] PH ARTERIAL 7.398 Normal 7.350-7.450 [facility] Comment on above: Performed By: #### L AB76 ####Assembly Machine Tender: MARY SOTELO ([id number])[facility] ([facility])[address] [place] [address] PO2 ARTERIAL 100.1 mm Hg High 80.0-100.0 [facility] Comment on above: Performed By: #### L AB76 ####Assembly Machine Tender: MARY SOTELO ([id number])[facility] ([facility])[address] [place] [address] SOURCE OF OXYGEN 30% Oxygen Normal [facility] Comment on above: Result Comment: vent Performed By: #### L AB76 ####Assembly Machine Tender: MARY SOTELO ([id number])[facility] ([facility])[address] [place] [address] Base excess Calc (Bld) [Moles/Vol] -2.5000 mmol/L Normal -3.0-3.0 [facility] Comment on above: Order Comment: 30 mi n after vent changes Performed By: #### L AB76 ####Assembly Machine Tender: MARY SOTELO ([id number])[facility] [place] [address] CO2 [Moles/Vol] 26.0 mmol/L Normal 23.0-27.0 [facility] Comment on above: Order Comment: 30 mi n after vent changes Performed By: #### L AB76 ####Assembly Machine Tender: MARY SOTELO ([id number])[facility] [place] [address] HCO3 (Bld) [Moles/Vol] 24.4 mmol/L Normal 21.0-25.0 [facility] Comment on above: Order Comment: 30 mi n after vent changes Performed By: #### L AB76 ####Assembly Machine Tender: MARY SOTELO ([id number])[facility] ([facility])[address] [place] [address] Hemoglobin (Bld) [Mass/Vol] 9.3 g/dL Normal Screen only [facility] Comment on above: Order Comment: 30 mi n after vent changes Performed By: #### L AB76 ####Assembly Machine Tender: MARY SOTELO ([id number])[facility] [place] [address] OXYGEN SATURATION (%) IN ARTERIAL BLOOD 97.1 % Normal 95.0-100.0 [facility] Comment on above: Order Comment: 30 mi n after vent changes Performed By: #### L AB76 ####Assembly Machine Tender: MARY SOTELO ([id number])[facility] [place] [address] PCO2 ARTERIAL 52.3 mm Hg High >35.0-<45.0 [facility] Comment on above: Order Comment: 30 mi n after vent changes Performed By: #### L AB76 ####Assembly Machine Tender: MARY SOTELO ([id number])[facility])[address] [place] [address] PH ARTERIAL 7.286 Low 7.350-7.450 [facility] Comment on above: Order Comment: 30 mi n after vent changes Performed By: #### L AB76 ####Assembly Machine Tender: MARY SOTELO ([id number])[facility] ([facility])[address] [place] [address] PO2 ARTERIAL 115.1 mm Hg High 80.0-100.0 [facility] Comment on above: Order Comment: 30 mi n after vent changes Performed By: #### L AB76 ####Assembly Machine Tender: MARY SOTELO ([id number])[facility])[address] [place] [address] SOURCE OF OXYGEN 30% Oxygen Normal [facility] Comment on above: Order Comment: 30 mi n after vent changes Result Comment: vent Performed By: #### L AB76 ####Assembly Machine Tender: MARY SOTELO ([id number])[facility] ([facility])[address] [place] [address] Base excess Calc (Bld) [Moles/Vol] -6.7000 mmol/L Low -3.0-3.0 [facility] Comment on above: Performed By: #### L AB76 ####Assembly Machine Tender: MARY SOTELO ([id number])[facility] ([facility])[address] [place] [address] CO2 [Moles/Vol] 22.8 mmol/L Low 23.0-27.0 [facility] Comment on above: Performed By: #### L AB76 ####Assembly Machine Tender: MARY SOTELO ([id number])[facility])[address] [place] [address] HCO3 (Bld) [Moles/Vol] 21.1 mmol/L Normal 21.0-25.0 [facility] Comment on above: Performed By: #### L [id number] ####Assembly Machine Tender: MARY SOTELO ([id number])[facility] ([facility])[address] [place] [address] Hemoglobin (Bld) [Mass/Vol] 9.9 g/dL Normal Screen only [facility] Comment on above: Performed By: #### L [id number] ####Assembly Machine Tender: MARY SOTELO ([id number])[facility] ([facility])[address] [place] [address] OXYGEN SATURATION (%) IN ARTERIAL BLOOD 96.9 % Normal 95.0-100.0 [facility] Comment on above: Performed By: #### L [id number] ####Assembly Machine Tender: MARY SOTELO ([id number])[facility] ([facility])[address] [place] [address] PCO2 ARTERIAL 53.5 mm Hg High >35.0-<45.0 [facility] Comment on above: Performed By: #### L [id number] ####Assembly Machine Tender: MARY SOTELO ([id number])[facility] ([facility])[address] [place] [address] PH ARTERIAL 7.214 Low 7.350-7.450 [facility] Comment on above: Performed By: #### L [id number] ####Assembly Machine Tender: MARY SOTELO ([id number])[facility] ([facility])[address] [place] [address] PO2 ARTERIAL 108.9 mm Hg High 80.0-100.0 [facility] Comment on above: Performed By: #### L AB76 ####Assembly Machine Tender: MARY SOTELO ([id number])[facility] ([facility])[address] [place] [address] SOURCE OF OXYGEN Vent Normal [facility] Comment on above: Performed By: #### L AB76 ####Assembly Machine Tender: MARY SOTELO ([id number])[facility] ([facility])[address] [place] [address] C3, BLOODon 09-24-2024 C3, BLOOD 56 mg/dL Low 88-165 [facility] Comment on above: Performed By: #### L [id number], [id number] ####Assembly Machine Tender: MARLENY GUZMÁN ([id number])[facility]ITAL[facility] LUDWIG ([facility])[address] [place] [address] [place] C4 COMPLEMENTon 07-27-2024 C4, BLOOD 10 mg/dL Low 14-44 [facility] Comment on above: Performed By: #### L AB152, [id number] ####Assembly Machine Tender: MARLENY GUZMÁN ([id number])[facility]OSPITALFrank LUDWIG ([facility])[address] [place] [address] [place] CALCIUM, IONIZEDon 4 CALCIUM IONIZED 4.00 mg/dL Low 4.30-5.20 [facility] Comment on above: Performed By: #### L AB54 ####Assembly Machine Tender: MARY SOTELO ([id number])[facility] ([facility])[address] [place] [address] [place] PH, IONIZED CALCIUM 7.50 High 7.31-7.46 [facility] Comment on above: Performed By: #### L AB54 ####Assembly Machine Tender: MARY SOTELO ([id number])[facility])[address] [place] [address] [place] CALCIUM IONIZED 4.20 mg/dL Low 4.30-5.20 [facility] Comment on above: Performed By: #### L AB54 ####Assembly Machine Tender: MARY SOTELO ([id number])[facility] ([facility])[address] [place] [address] [place] PH, IONIZED CALCIUM 7.32 Normal 7.31-7.46 [facility] Comment on above: Performed By: #### L AB54 ####Assembly Machine Tender: MARY SOTELO ([id number])[facility])[address] [place] [address] [place] CALCIUM IONIZED 3.70 mg/dL Low 4.30-5.[address] [facility] Comment on above: Performed By: #### L AB54 ####Assembly Machine Tender: MARY SOTELO ([id number])[facility])[address] [place] [address] PH, IONIZED CALCIUM 7.22 Low 7.31-7.46 [facility] Comment on above: Performed By: #### L AB54 ####Assembly Machine Tender: MARY SOTELO ([id number])[facility])[address] [place] [address] CARECOORDon 07-27-2024 CARECOORD Normal [facility] CBC WITH AUTO DIFFERENTIALon 07-27-2024 Erythrocyte distribution width (RBC) [Ratio] 15.3 % High 11.5-15.0 [facility] Comment on above: Performed By: #### L [id number], [id number] ####Assembly Machine Tender: MARY SOTELO ([id number])[facility])[address] [place] [address] Hematocrit (Bld) [Volume fraction] 27.2 % Low 35.0-47.0 [facility] Comment on above: Performed By: #### L [id number], [id number] ####Assembly Machine Tender: MARY SOTELO ([id number])[facility])[address] [place] [address] Hemoglobin (Bld) [Mass/Vol] 8.8 g/dL Low 11.7-16.0 [facility] Comment on above: Performed By: #### L [id number], [id number] ####Assembly Machine Tender: MARY SOTELO ([id number])[facility])[address] [place] [address] MCH (RBC) [Entitic mass] 28.5 pg Normal 26.0-34.0 [facility] Comment on above: Performed By: #### L [id number], [id number] ####Assembly Machine Tender: MARY SOTELO ([id number])[facility])[address] [place] [address] MCHC 32.4 % Normal 30.5-36.0 [facility] Comment on above: Performed By: #### L [id number], [id number] ####Assembly Machine Tender: MARY SOTELO ([id number])[facility])[address] [place] [address] MCV (RBC) [Entitic vol] 88.0 fL Normal 77.0-99.0 [facility] Comment on above: Performed By: #### L [id number], [id number] ####Assembly Machine Tender: MARY SOTELO ([id number])[facility])[address] [place] [address] Platelet mean volume (Bld) [Entitic vol] 10.4 fL Normal 9.0-12.7 [facility] Comment on above: Performed By: #### L [id number], [id number] ####Assembly Machine Tender: MARY SOTELO ([id number])[facility])[address] [place] [address] Platelets (Bld) [#/Vol] 186 10*3/uL Normal 140-440 [facility] Comment on above: Performed By: #### L [id number], [id number] ####Assembly Machine Tender: MARY SOTELO ([id number])[facility])[address] [place] [address] RBC (Bld) [#/Vol] 3.09 10*6/uL Low 3.80-5.20 [facility] Comment on above: Performed By: #### L [id number], [id number] ####Assembly Machine Tender: MARY SOTELO ([id number])[facility])[address] [place] [address] WBC (Bld) [#/Vol] 14.5 10*3/uL High 3.6-10.7 [facility] Comment on above: Performed By: #### L [id number], [id number] ####Assembly Machine Tender: MARY SOTELO ([id number])[facility])[address] [place] [address] CKon 07-27-2024 CK [Catalytic activity/Vol] 865 U/L High 30-170 [facility] Comment on above: Performed By: #### L AB62, LAB17, MAI235, [id number] ####Assembly Machine Tender: MARY SOTELO ([id number])[facility] ([facility])[address] [place] [address] COMPREHENSIVE METABOLIC PANE [place] 07-27-2024 Albumin [Mass/Vol] 2.4 g/dL Low 3.5-5.0 [facility] Comment on above: Performed By: #### L AB62, LAB17, ZZP392, JYA157 ####Assembly Machine Tender: MARY SOTELO ([id number])[facility] ([facility])[address] [place] [address] ALP [Catalytic activity/Vol] 66 U/L Normal 38-126 [facility] Comment on above: Performed By: #### Dora ABBonita, LAB17, [id number], JPC676 ####Assembly Machine Tender: MARY SOTELO ([id number])[facility] ([facility])[address] [place] [address] ALT [Catalytic activity/Vol] 19 U/L Normal 0-34 [facility] Comment on above: Performed By: #### Dora AB62, LAB17, ONF852, YHS794 ####Assembly Machine Tender: MARY SOTELO ([id number])[facility] ([facility])[address] [place] [address] Anion gap [Moles/Vol] 11 mmol/L Normal 3-13 [facility] Comment on above: Performed By: #### L AB62, LAB17, OTB740, NWS592 ####Assembly Machine Tender: MARY SOTELO ([id number])[facility] ([facility])[address] [place] [address] AST [Catalytic activity/Vol] 28 U/L Normal 15-46 [facility] Comment on above: Performed By: #### L AB62, LAB17, FVO732, RYJ245 ####Assembly Machine Tender: MARY SOTELO ([id number])[facility] ([facility])[address] [place] [address] Bilirubin [Mass/Vol] 0.3 mg/dL Normal 0.2-1.3 [facility] Comment on above: Performed By: #### L AB62, LAB17, LIA754, XMI229 ####Assembly Machine Tender: MARY SOTELO ([id number])[facility])[address] [place] [address] Calcium [Mass/Vol] 6.5 mg/dL Low 8.4-10.4 [facility] Comment on above: Performed By: #### L AB62, LAB17, UXQ496, WYO063 ####Assembly Machine Tender: MARY SOTELO ([id number])[facility] ([facility])[address] [place] [address] Chloride [Moles/Vol] 101 mmol/L Normal 98-107 [facility] Comment on above: Performed By: #### L AB62, LAB17, YPK784, APW780 ####Assembly Machine Tender: MARY SOTELO ([id number])[facility] ([facility])[address] [place] [address] CO2 [Moles/Vol] 18 mmol/L Low 22-30 [facility] Comment on above: Performed By: #### L AB62, LAB17, NNB339, NSQ698 ####Assembly Machine Tender: MARY SOTELO ([id number])[facility] ([facility])[address] [place] [address] Creatinine [Mass/Vol] 4.00 mg/dL High 0.52-1.04 [facility] Comment on above: Performed By: #### L AB62, LAB17, XRW678, FLG365 ####Assembly Machine Tender: MARY SOTELO ([id number])[facility])[address] [place] [address] [place] GLOMERULAR FILTRATION RATE ML/MIN/1.73 SQ M.PREDICTED 11.9 mL/min/1.73m*2 Low >60.0 [facility] Comment on above: Result Comment: Calc ulation based on the Chronic Kidney Disease Epidemiology Collaboration (CKD-EPI) equation refit without adjustment for race Performed By: #### L AB62, LAB17, WAS449, IJY446 ####Assembly Machine Tender: MARY SOTELO ([id number])[facility] ([facility])[address] [place] [address] Glucose [Mass/Vol] 254 mg/dL High 70-100 [facility] Comment on above: Performed By: #### L AB62, LAB17, UCK536, NSN494 ####Assembly Machine Tender: MARY SOTELO ([id number])[facility] ([facility])[address] [place] [address] Potassium [Moles/Vol] 4.3 mmol/L Normal 3.5-5.1 [facility] Comment on above: Performed By: #### L AB62, LAB17, PCH557, XSP547 ####Assembly Machine Tender: MARY SOTELO ([id number])[facility] ([facility])[address] [place] [address] Protein [Mass/Vol] 4.9 g/dL Low 6.3-8.2 [facility] Comment on above: Performed By: #### L AB62, LAB17, BZE157, IQU325 ####Assembly Machine Tender: MARY SOTELO ([id number])[facility] ([facility])[address] [place] [address] Sodium [Moles/Vol] 130 mmol/L Low 135-145 [facility] Comment on above: Performed By: #### L AB62, LAB17, PFY995, FOY475 ####Assembly Machine Tender: MARY SOTELO ([id number])[facility] ([facility])[address] [place] [address] Urea nitrogen [Mass/Vol] 66 mg/dL High 7-17 [facility] Comment on above: Performed By: #### L AB62, LAB17, DKY918, LIB643 ####Assembly Machine Tender: MARY SOTELO ([id number])[facility])[address] [place] [address] [place] Consulton 07-27-2024 Consult Normal [facility] Consult Normal [facility] Consult Normal [facility] ECG 12-LEADon 07-27-2024 ECG 12-LEAD IMPRESSION: Sinus rhythm Short MS interval Left anterior fascicular block Anteroseptal infarct, age indeterminate Nonspecific T abnormalities, lateral leads Electronically Signed On 07-27-2024 07:43:40 EDT by Mira Drummond [facility] FREE T4on 07-27-2024 Free T4 [Mass/Vol] 1.67 ng/dL Normal 0.78-2.19 [facility] Comment on above: Performed By: #### L AB127 ####Assembly Machine Tender: MARY SOTELO ([id number])[facility] ([facility])[address] [place] [address] HEPATITIS B SURFACE ANTIBODY on 07-27-2024 HEPATITIS B VIRUS SURFACE AB <8.0 Normal [facility] Comment on above: Result Comment: BINA Olivarez COMMENTS:Interpretation:<8.0 Non-Reactive8.0-11.9 Equivocal>= 12.0 Ab DetectedNote: If an equivocal result is interpreted, an antibody status is unable to be determined. Collect new specimen if clinically indicated. Performed By: #### L AB471, HDL357 ####Assembly Machine Tender: MARY SOTELO ([id number])[facility])[address] [place] [address] HEPATITIS B SURFACE ANTIGENo n 07-27-2024 HEPATITIS B VIRUS SURFACE AG Not detected Normal Not Detected [facility] Comment on above: Performed By: #### L AB471, EEH277 ####Assembly Machine Tender: MARY SOTELO ([id number])[facility] ([facility])[address] [place] [address] [place] MAGNESIUMon 07-27-2024 Magnesium [Mass/Vol] 1.9 mg/dL Normal 1.6-2.3 [facility] Comment on above: Performed By: #### L AB103, LAB15 ####Assembly Machine Tender: MARY SOTELO ([id number])[facility])[address] [place] [address] Magnesium [Mass/Vol] 2.0 mg/dL Normal 1.6-2.3 [facility] Comment on above: Performed By: #### L AB62, LAB17, LNM499, ZTI296 ####Assembly Machine Tender: MARY SOTELO ([id number])[facility] ([facility])[address] [place] [address] MANUAL DIFFERENTIAL (CELLAVI ESPINOZA)on 07-27-2024 ANISOCYTOSIS PRESENCE IN BLOOD BY LIGHT MICROSCOPY Slight Abnormal (none) [facility] Comment on above: Performed By: #### L [id number], [id number] ####Assembly Machine Tender: MARY SOTELO ([id number])[facility] [place] [address] [place] BAND NEUTROPHILS TOTAL PER COUNTED LEUKOCYTES BY MANUAL COUNT Normal [facility] Comment on above: Performed By: #### L [id number], [id number] ####Assembly Machine Tender: MARY SOTELO ([id number])[facility] ([facility])[address] [place] [address] BASOPHILIC STIPPLING PRESENCE IN BLOOD BY LIGHT MICROSCOPY Rare Abnormal (none) [facility] Comment on above: Performed By: #### L [id number], [id number] ####Assembly Machine Tender: MARY SOTELO ([id number])[facility] ([facility])[address] [place] [address] [place] BASOPHILS TOTAL PER COUNTED LEUKOCYTES BY MANUAL COUNT Normal [facility] Comment on above: Performed By: #### L [id number], [id number] ####Assembly Machine Tender: MARY SOTELO ([id number])[facility] ([facility])[address] [place] [address] [place] BLASTS TOTAL PER COUNTED LEUKOCYTES BY MANUAL COUNT Normal [facility] Comment on above: Performed By: #### L [id number], [id number] ####Assembly Machine Tender: MARY SOTELO ([id number])[facility] ([facility])[address] [place] [address] [place] EOSINOPHILS TOTAL PER COUNTED LEUKOCYTES BY MANUAL COUNT Normal [facility] Comment on above: Performed By: #### L [id number], [id number] ####Assembly Machine Tender: MARY SOTELO ([id number])[facility] ([facility])[address] [place], [place] [id number] [place] LYMPHOCYTE VARIANT/100 LEUKOCYTES IN BLOOD- CELLAVISION 1 % High <=0 [facility] Comment on above: Performed By: #### L [id number], [id number] ####Assembly Machine Tender: MARY SOTELO ([id number])[facility] ([facility])[address] [place] [address] [place] LYMPHOCYTES (10*3/UL) IN BLOOD-CELLAVISION 0.7 10*3/uL Low 1.0-4.3 [facility] Comment on above: Performed By: #### L [id number], [id number] ####Assembly Machine Tender: MARY SOTELO ([id number])[facility])[address] [place] [address] [place] LYMPHOCYTES TOTAL PER COUNTED LEUKOCYTES BY MANUAL COUNT 5 Normal [facility] Comment on above: Performed By: #### L [id number], [id number] ####Assembly Machine Tender: MARY SOTELO ([id number])[facility] ([facility])[address] [place] [address] [place] LYMPHOCYTES/100 LEUKOCYTES IN BLOOD-CELLAVISION 5 % Low 15-45 [facility] Comment on above: Performed By: #### L [id number], [id number] ####Assembly Machine Tender: MARY SOTELO ([id number])[facility] ([facility])[address] [place] [address] [place] MACROCYTES (PRESENCE) IN BLOOD BY LIGHT MICROSCOPY Slight Abnormal (none) [facility] Comment on above: Performed By: #### L [id number], [id number] ####Assembly Machine Tender: MARY SOTELO ([id number])[facility] ([facility])[address] [place] [address] [place] METAMYELOCYTES TOTAL PER COUNTED LEUKOCYTES BY MANUAL COUNT Normal [facility] Comment on above: Performed By: #### L [id number], [id number] ####Assembly Machine Tender: MARY SOTELO ([id number])[facility] ([facility])[address] [place] [address] [place] MICROCYTES (PRESENCE) IN BLOOD BY LIGHT MICROSCOPY Slight Abnormal (none) [facility] Comment on above: Performed By: #### L [id number], [id number] ####Assembly Machine Tender: MARY SOTELO ([id number])[facility])[address] [place] [address] [place] MONOCYTES (10*3/UL) IN BLOOD-CELLAVISION 0.7 10*3/uL Normal 0.0-0.9 [facility] Comment on above: Performed By: #### L [id number], [id number] ####Assembly Machine Tender: MARY SOTELO ([id number])[facility] ([facility])[address] [place] [address] [place] MONOCYTES TOTAL PER COUNTED LEUKOCYTES BY MANUAL COUNT 5 Normal [facility] Comment on above: Performed By: #### L [id number], [id number] ####Assembly Machine Tender: MARY SOTELO ([id number])[facility] ([facility])[address] [place] [address] [place] MONOCYTES/100 LEUKOCYTES IN BLOOD-KACEY 5 % Normal 5-13 [facility] Comment on above: Performed By: #### L [id number], [id number] ####Assembly Machine Tender: MARY SOTELO ([id number])[facility])[address] [place] [address] [place] MYELOCYTES COUNTED BY MANUAL COUNT Normal [facility] Comment on above: Performed By: #### L [id number], [id number] ####Assembly Machine Tender: MARY SOTELO ([id number])[facility] ([facility])[address] [place] [address] [place] NEUTROPHILS TOTAL PER COUNTED LEUKOCYTES BY MANUAL COUNT 90 Normal [facility] Comment on above: Performed By: #### L [id number], [id number] ####Assembly Machine Tender: MARY SOTELO ([id number])[facility])[address] [place] [address] [place] OVALOCYTES PRESENCE IN BLOOD BY LIGHT MICROSCOPY Slight Abnormal (none) [facility] Comment on above: Performed By: #### L [id number], [id number] ####Assembly Machine Tender: MARY [id number])[facility] [place] [address] [place] POIKILOCYTOSIS (PRESENCE) IN BLOOD BY LIGHT MICROSCOPY Slight Abnormal (none) [facility] Comment on above: Performed By: #### L [id number], [id number] ####Assembly Machine Tender: MARY SOTELO ([id number])[facility] ([facility])[address] [place] [address] [place] POLYCHROMASIA IN BLOOD BY LIGHT MICROSCOPY Slight Abnormal (none) [facility] Comment on above: Performed By: #### L [id number], [id number] ####Assembly Machine Tender: MARY SOTELO ([id number])[facility] ([facility])[address] [place] [address] PROMYELOCYTES TOTAL PER COUNTED LEUKOCYTES BY MANUAL COUNT Normal [facility] Comment on above: Performed By: #### L [id number], [id number] ####Assembly Machine Tender: MARY SOTELO ([id number])[facility] ([facility])[address] [place] [address] RBC MORPHOLOGY IN BLOOD abnormal Normal [facility] Comment on above: Performed By: #### L [id number], [id number] ####Assembly Machine Tender: MARY SOTELO ([id number])[facility] ([facility])[address] [place] [address] SEGMENTED NEUTROPHILS (10*3/UL) IN BLOOD-CELLAVISION 12.9 10*3/uL High 1.8-7.5 [facility] Comment on above: Performed By: #### L [id number], [id number] ####Assembly Machine Tender: MARY SOTELO ([id number])[facility] ([facility])[address] [place] [address] [place] SEGMENTED NEUTROPHILS/100 LEUKOCYTES-CE 89 % High 38-82 [facility] Comment on above: Performed By: #### L [id number], [id number] ####Assembly Machine Tender: MARY SOTELO ([id number])[facility] ([facility])[address] [place] [address] [place] UNCLASSIFIED CELLS TOTAL PER COUNTED LEUKOCYTES BY MANUAL COUNT Normal [facility] Comment on above: Performed By: #### L [id number], [id number] ####Assembly Machine Tender: MARY SOTELO ([id number])[facility])[address] [place] [address] VARIANT LYMPHOCYTES (10*3/UL) IN BLOOD-CELLAVISION 0.1 10*3/uL High <=0.0 [facility] Comment on above: Performed By: #### L [id number], [id number] ####Assembly Machine Tender: MARY SOTELO ([id number])[facility])[address] [place] [address] VARIANT LYMPHOCYTES TOTAL PER COUNTED LEUKOCYTES BY MANUAL COUNT 1 Normal [facility] Comment on above: Performed By: #### L [id number], [id number] ####Assembly Machine Tender: MARY SOTELO ([id number])[facility] ([facility])[address] [place] [address] PHOSPHORUSon 07-27-2024 Phosphate [Mass/Vol] 6.8 mg/dL High 2.5-4.5 [facility] Comment on above: Performed By: #### L AB62, LAB17, [id number], [id number] ####Assembly Machine Tender: MARY SOTELO ([id number])[facility])[address] [place] [address] PNEUMONIA PCR PANELon 2023 PNEUMONIA PCR PANEL Normal [facility] Comment on above: Performed By: #### L [id number] ####Assembly Machine Tender: MARY SOTELO ([id number])[facility])[address] [place] [address] Progress Noteon 07-27-2024 Progress Note Normal [facility] Note Normal [facility] Progress Note OCCUPATIONAL THERAPY [facility] Name/MRN: Sandy Deng ([id number]) Date: 07/27/2024 Intubated, sedated, on bed rest. Will follow. Delmar Ling OT Normal [facility] Progress Note PHYSICAL THERAPY [facility] Name/MRN: Sandy Deng ([id number]) Date: 07/27/2024 Screen Note. Pt remains intubated and sedated, and on strict bed rest orders. Will continue to follow and re-attempt as able. Jennifer Saldaña, SPT Normal [facility] Progress Note Normal [facility] Progress Note Normal [facility] Progress Note Normal [facility] RENAL FUNCTION PANELon 07-27 Albumin [Mass/Vol] 2.4 g/dL Low 3.5-5.0 [facility] Comment on above: Performed By: #### L [id number] ####Assembly Machine Tender: MARY SOTELO ([id number])[facility])[address] [place] [address] Anion gap [Moles/Vol] 4 mmol/L Normal 3-13 [facility] Comment on above: Performed By: #### L [id number] ####Assembly Machine Tender: MARY SOTELO ([id number])[facility])[address] [place] [address] Calcium [Mass/Vol] 7.5 mg/dL Low 8.4-10.4 [facility] Comment on above: Performed By: #### L [id number] ####Assembly Machine Tender: MARY SOTELO ([id number])[facility])[address] [place] [address] Chloride [Moles/Vol] 102 mmol/L Normal 98-107 [facility] Comment on above: Performed By: #### L [id number] ####Assembly Machine Tender: MARY SOTELO ([id number])[facility] ([facility])[address] [place] [address] [place] CO2 [Moles/Vol] 25 mmol/L Normal 22-30 [facility] Comment on above: Performed By: #### L AB19 ####Assembly Machine Tender: MARY SOTELO ([id number])[facility] ([facility])[address] [place] [address] Creatinine [Mass/Vol] 2.81 mg/dL High 0.52-1.04 [facility] Comment on above: Performed By: #### L AB19 ####Assembly Machine Tender: MARY SOTELO ([id number])[facility])[address] [place] [address] GLOMERULAR FILTRATION RATE ML/MIN/1.73 SQ M.PREDICTED 18.2 mL/min/1.73m*2 Low >60.0 [facility] Comment on above: Result Comment: Calc ulation based on the Chronic Kidney Disease Epidemiology Collaboration (CKD-EPI) equation refit without adjustment for race Performed By: #### L AB19 ####Assembly Machine Tender: MARY SOTELO ([id number])[facility] ([facility])[address] [place] [address] Glucose [Mass/Vol] 83 mg/dL Normal 70-100 [facility] Comment on above: Performed By: #### L AB19 ####Assembly Machine Tender: MARY SOTELO ([id number])[facility] ([facility])[address] [place] [address] Phosphate [Mass/Vol] 4.6 mg/dL High 2.5-4.5 [facility] Comment on above: Performed By: #### L AB19 ####Assembly Machine Tender: MARY SOTELO ([id number])[facility] ([facility])[address] [place] [address] Potassium [Moles/Vol] 3.6 mmol/L Normal 3.5-5.1 [facility] Comment on above: Performed By: #### L AB19 ####Assembly Machine Tender: AMRY SOTELO ([id number])[facility] ([facility])[address] [place] [address] [place] Sodium [Moles/Vol] 131 mmol/L Low 135-145 [facility] Comment on above: Performed By: #### L AB19 ####Assembly Machine Tender: MARY SOTELO ([id number])[facility] ([facility])[address] [place] [address] [place] Urea nitrogen [Mass/Vol] 49 mg/dL High 7-17 [facility] Comment on above: Performed By: #### L AB19 ####Assembly Machine Tender: MARY SOTELO ([id number])[facility] [place] [address] [place] RESPIRATORY CULTURE AND STAI Non 07-27-2024 RESPIRATORY CULTURE AND STAIN Normal [facility] Comment on above: Performed By: #### L [id number] ####Assembly Machine Tender: MARY SOTELO ([id number])[facility] [place] [address] RESPIRATORY PATHOGENS PANEL BY PCRon 07-27-2024 RESPIRATORY PATHOGENS PANEL BY PCR [facility] Comment on above: Performed By: #### L [id number] ####Assembly Machine Tender: MARY ONEALLAUREN ([id number])[facility] ([facility])[address] [place] [address] Renal Profileon 07-27-2024 ALB Normal 3.2-5.0 [facility] Comment on above: Result Comment: Canc elled via OM: Order cancelled - Patient discharged Performed By: #### L 500.3600 ####[facility] [address] [facility] [address] BUN Normal 7-18 [facility] Comment on above: Result Comment: Canc elled via OM: Order cancelled - Patient discharged Performed By: #### L 500.3600 ####[facility] [address] [facility] [address] BUN/CRE Normal 10-20 [facility] Comment on above: Result Comment: Canc elled via OM: Order cancelled - Patient discharged Performed By: #### L 500.3600 ####[facility] [address] [facility] [address] [place],Total Normal 8.5-10.1 [facility] Comment on above: Result Comment: Canc elled via OM: Order cancelled - Patient discharged Performed By: #### L 500.3600 ####[facility] [address] [place], [address] CL Normal 98-107 [facility] Comment on above: Result Comment: Canc elled via OM: Order cancelled - Patient discharged Performed By: #### L 500.3600 ####[facility] [address] [place], [address] CO2 Normal 21.0-32.0 [facility] Comment on above: Result Comment: Canc elled via OM: Order cancelled - Patient discharged Performed By: #### L 500.3600 ####[facility] [address] [place], [address] CREAT,SERUM Normal 0.55-1.02 [facility] Comment on above: Result Comment: Canc elled via OM: Order cancelled - Patient discharged Performed By: #### L 500.3600 ####[facility] [address] [place], [address] EST GFR Normal >60 [facility] Comment on above: Result Comment: Canc elled via OM: Order cancelled - Patient discharged Performed By: #### L 500.3600 ####[facility] [address] [place], [address] EST GFR - AA Normal >60 [facility] Comment on above: Result Comment: Canc elled via OM: Order cancelled - Patient discharged Performed By: #### L 500.3600 ####[facility] [address] [place], [address] GLU Normal 74-106 [facility] Comment on above: Result Comment: Canc elled via OM: Order cancelled - Patient discharged Performed By: #### L 500.3600 ####[facility] [address] [place], [address] PHOS Normal 2.5-4.9 [facility] Comment on above: Result Comment: Canc elled via OM: Order cancelled - Patient discharged Performed By: #### L 500.3600 ####[facility] [address] [place], [address] Potassium Normal 3.5-5.1 [facility] Comment on above: Result Comment: Canc elled via OM: Order cancelled - Patient discharged Performed By: #### L 500.3600 ####[facility] [address] [place], [address] Renal Profile Normal 136-145 [facility] Comment on above: Result Comment: Canc elled via OM: Order cancelled - Patient discharged Performed By: #### L 500.3600 ####[facility] [address] [place], [address] TROPONIN Ion 07-27-2024 Troponin I.cardiac [Mass/Vol] 0.017 ng/mL Normal <0.034 [facility] Comment on above: Result Comment: BINA Olivarez COMMENTS:Patients with high levels of Biotin oral intake (ie >5 mg/day) may have falsely decreased Troponin levels. Performed By: #### L [id number] ####Assembly Machine Tender: MARY SOTELO ([id number])[facility] ([address] US RETROPERITONEUM LIMITEDon 07-27-2024 US RETROPERITONEUM LIMITED Normal [facility] Vitamin D 1,25-Dihydroxyon 0 07-27-2024 VIT D 1,25 DIHY 41.6 pg/mL Normal 24.8-81.5 [facility] Comment on above: Result Comment: Perf ormed at: BN - [facility] [address] [id number] Director: Rico Lord MD, Phone: [phone] Performed By: #### L 931.1919, L506.1000, L100.0100, L500.4050, L509.1000, L3300.0960 ####[facility] [address] [place], [address] Abdomen Single View (Portabl e)on 07-26-2024 Abdomen Single View (Portable) Normal [facility] BLOOD GAS ARTERIALon 024 Base excess Calc (Bld) [Moles/Vol] -16.47379 mmol/L Low -3.0-3.0 [facility] Comment on above: Performed By: #### L AB76 ####Assembly Machine Tender: MARY SOTELO ([id number])[facility] ([facility])[address] [place] [address] [place] CO2 [Moles/Vol] 11.7 mmol/L Low 23.0-27.0 [facility] Comment on above: Performed By: #### L AB76 ####Assembly Machine Tender: MARY SOTELO ([id number])[facility] ([facility])[address] [place] [address] HCO3 (Bld) [Moles/Vol] 10.7 mmol/L Low 21.0-25.0 [facility] Comment on above: Performed By: #### L AB76 ####Assembly Machine Tender: MARY SOTELO ([id number])[facility] ([facility])[address] [place] [address] Hemoglobin (Bld) [Mass/Vol] 8.1 g/dL Normal Screen only [facility] Comment on above: Performed By: #### L AB76 ####Assembly Machine Tender: MARY SOTELO ([id number])[facility] ([facility])[address] [place] [address] OXYGEN SATURATION (%) IN ARTERIAL BLOOD 94.9 % Low 95.0-100.0 [facility] Comment on above: Performed By: #### L AB76 ####Assembly Machine Tender: MARY SOTELO ([id number])[facility] ([facility])[address] [place] [address] PCO2 ARTERIAL 30.4 mm Hg Low >35.0-<45.0 [facility] Comment on above: Performed By: #### L AB76 ####Assembly Machine Tender: MARY SOTELO ([id number])[facility] ([facility])[address] [place] [address] PH ARTERIAL 7.166 Critically low 7.350-7.450 [facility] [employer] [facility] Comment on above: Performed By: #### L AB76 ####Assembly Machine Tender: MARY SOTELO ([id number])[facility] ([facility])[address] [place] [address] PO2 ARTERIAL 95.4 mm Hg Normal 80.0-100.0 [facility] Comment on above: Performed By: #### L AB76 ####Assembly Machine Tender: MARY SOTELO ([id number])[facility] ([facility])[address] [place] [address] SOURCE OF OXYGEN Vent Normal [facility] [employer] [facility] Comment on above: Performed By: #### L AB76 ####Assembly Machine Tender: MARY SOTELO ([id number])[facility] [place] [address] Bedside Glucoseon 07-26-2024 FINGERSTICK GLU 290 mg/dL High [address] [place] [address] Comment on above: Result Comment: SHELLY GEMENT OF PATIENT CARE PER NURSING PROTOCOL Performed By: #### L 501.080 ####[facility] [address] [facility] [address] FINGERSTICK GLU 224 mg/dL High [address] [place] [address] Comment on above: Result Comment: SHELLY GEMENT OF PATIENT CARE PER NURSING PROTOCOL Performed By: #### L 501.080 ####[facility] [address] [facility] [address] FINGERSTICK GLU 193 mg/dL High [address] [place] [address] Comment on above: Result Comment: SHELLY GEMENT OF PATIENT CARE PER NURSING PROTOCOL Performed By: #### L 501.080 ####[facility] [address] [facility] [address] [facility] Base excess Calc (Bld) [Moles/Vol] -15 mmol/L Low -2 to +2 [facility] Comment on above: Performed By: #### L 9000.0800 ####[facility] [address] [place], [address] Blood Gas Type ART Normal [facility] Comment on above: Performed By: #### L 9000.0800 ####[facility] [address] [place], [address] CO2 [Moles/Vol] 18 mmol/L Normal [facility] Comment on above: Performed By: #### L 9000.0800 ####[facility] [address] [place], [address] FI02 50.0 Normal [facility] Comment on above: Performed By: #### L 9000.0800 ####[facility] [address] [place], [address] HCO3 (Bld) [Moles/Vol] 16.3 mmol/L Low 22-26 [facility] Comment on above: Performed By: #### L 9000.0800 ####[facility] [address] [place], [address] Mode AC Normal [facility] Comment on above: Performed By: #### L 9000.0800 ####[facility] [address] [place], [address] O2 Delivery Dev Not entered Normal [facility] Comment on above: Performed By: #### L 9000.0800 ####[facility] [address] [place], [address] pCO2 64.6 mmHg High 35-45 [facility] Comment on above: Performed By: #### L 9000.0800 ####[facility] [address] [place], [address] PEEP 5 Normal [facility] Comment on above: Performed By: #### L 9000.0800 ####[facility] [address] [place], [address] pH (Bld) 7.01 [pH] Invalid Interpretation Code 7.35-7.45 [facility] Comment on above: Performed By: #### L 9000.0800 ####[facility] [address] [place], [address] PO2 127 mmHG High 75-100 [facility] Comment on above: Performed By: #### L 9000.0800 ####[facility] [address] [place], [address] Read Back By Yes [facility] Comment on above: Performed By: #### L 9000.0800 ####[facility] [address] [place], [address] Results To [facility] Comment on above: Performed By: #### L 9000.0800 ####[facility] [address] [place], [address] RR 16 [facility] Comment on above: Performed By: #### L 9000.0800 ####[facility] [address] [place], [address] SITE R Brach [facility] Comment on above: Performed By: #### L 9000.0800 ####[facility] [address] [place], [address] SO2 96 Normal 95-99 [facility] Comment on above: Performed By: #### L 9000.0800 ####[facility] [address] [place], [address] Time Given 12:36:55 [facility] Comment on above: Performed By: #### L 9000.0800 ####[facility] [address] [place], [address] Vt 400.0 mL [facility] Comment on above: Performed By: #### L 9000.0800 ####[facility] [address] [place], [address] Base excess Calc (Bld) [Moles/Vol] -11 mmol/L Low -2 to +2 [facility] Comment on above: Performed By: #### L 9000.0800 ####[facility] [address] [place], [address] Blood Gas Type ART [facility] Comment on above: Performed By: #### L 9000.0800 ####[facility] [address] [place], [address] CO2 [Moles/Vol] 23 mmol/L [facility] Comment on above: Performed By: #### L 9000.0800 ####[facility] [address] [place], [address] FI02 4.0 Normal [facility] Comment on above: Performed By: #### L 9000.0800 ####[facility] [address] [place], [address] HCO3 (Bld) [Moles/Vol] 20.1 mmol/L Low 22-26 [facility] Comment on above: Performed By: #### L 9000.0800 ####[facility] [address] [place], [address] Mode Not entered [facility] Comment on above: Performed By: #### L 9000.0800 ####[facility] [address] [place], [address] O2 Delivery Dev Not entered [facility] Comment on above: Performed By: #### L 9000.0800 ####[facility] [address] [place], [address] pCO2 82.1 mmHg Invalid Interpretation Code 35-45 [facility] Comment on above: Performed By: #### L 9000.0800 ####[facility] [address] [place], [address] pH (Bld) 7.00 [pH] Invalid Interpretation Code 7.35-7.45 [facility] Comment on above: Performed By: #### L 9000.0800 ####[facility] [address] [place], [address] PO2 119 mmHG High 75-100 [facility] Comment on above: Performed By: #### L 9000.0800 ####[facility] [address] [place], [address] Read Back By Yes Normal [facility] Comment on above: Performed By: #### L 9000.0800 ####[facility] [address] [place], [address] Results To José Miguel Normal [facility] Comment on above: Performed By: #### L 9000.0800 ####[facility] [address] [place], [address] SITE L Radial Normal [facility] Comment on above: Performed By: #### L 9000.0800 ####[facility] [address] [place], [address] SO2 95 Normal 95-99 [facility] Comment on above: Performed By: #### L 9000.0800 ####[facility] [address] [place], [address] Time Given 09:09:17 [facility] Comment on above: Performed By: #### L 9000.0800 ####[facility] [address] [place], [address] Brain/Head without Contrasto n 07-26-2024 Brain/Head without Contrast Normal [facility] Brain/Head without Contrast Normal [facility] CALCIUM, IONIZEDon CALCIUM IONIZED 2.80 mg/dL Low 4.30-5.20 [facility] Comment on above: Performed By: #### L AB54 ####Assembly Machine Tender: MARY SOTELO ([id number])[facility])[address] [place] [address] PH, IONIZED CALCIUM 7.29 Low 7.31-7.46 [facility] Comment on above: Performed By: #### L AB54 ####Assembly Machine Tender: MARY SOTELO ([id number])[facility])[address] [place] [address] CBC WITH AUTO DIFFERENTIALon 07-26-2024 Basophils (Bld) [#/Vol] 0.0 10*3/uL Normal 0.0-0.2 [facility] Comment on above: Performed By: #### L [id number] ####Assembly Machine Tender: MARY SOTELO ([id number])[facility])[address] [place] [address] Basophils/100 WBC (Bld) 0.1 % Normal 0.0-2.0 [facility] Comment on above: Performed By: #### L [id number] ####Assembly Machine Tender: MARY SOTELO ([id number])[facility])[address] [place] [address] Eosinophils (Bld) [#/Vol] 0.0 10*3/uL Normal 0.0-0.5 [facility] Comment on above: Performed By: #### L [id number] ####Assembly Machine Tender: MARY SOTELO ([id number])[facility])[address] [place] [address] Eosinophils/100 WBC (Bld) 0.1 % Normal 0.0-6.0 [facility] Comment on above: Performed By: #### L [id number] ####Assembly Machine Tender: MARY SOTELO ([id number])[facility])[address] [place] [address] Erythrocyte distribution width (RBC) [Ratio] 15.5 % High 11.5-15.0 [facility] Comment on above: Performed By: #### L [id number] ####Assembly Machine Tender: MARY SOTELO ([id number])[facility])[address] [place] [address] Hematocrit (Bld) [Volume fraction] 31.3 % Low 35.0-47.0 [facility] Comment on above: Performed By: #### L [id number] ####Assembly Machine Tender: MARY SOTELO ([id number])[facility])[address] [place] [address] Hemoglobin (Bld) [Mass/Vol] 10.1 g/dL Low 11.7-16.0 [facility] Comment on above: Performed By: #### L [id number] ####Assembly Machine Tender: MARY SOTELO ([id number])[address] IMMATURE GRANS % 0.6 % Normal 0.0-2.0 [facility] Comment on above: Performed By: #### L [id number] ####Assembly Machine Tender: MARY SOTELO ([id number])[address] IMMATURE GRANS ABSOLUTE 0.1 10*3/uL High <0.1 [facility] Comment on above: Performed By: #### L [id number] ####Assembly Machine Tender: MARY SOTELO ([id number])[facility])[address] [place] [address] Lymphocytes (Bld) [#/Vol] 1.2 10*3/uL Normal 1.0-4.3 [facility] Comment on above: Performed By: #### L [id number] ####Assembly Machine Tender: MARY SOTELO ([id number])[address] Lymphocytes/100 WBC (Bld) 6.2 % Low 15.0-45.0 [facility] Comment on above: Performed By: #### L [id number] ####Assembly Machine Tender: MARY SOTELO ([id number])[facility])[address] [place] [address] MCH (RBC) [Entitic mass] 28.6 pg Normal 26.0-34.0 [facility] Comment on above: Performed By: #### L [id number] ####Assembly Machine Tender: MARY SOTELO ([id number])[facility])[address] [place] [address] MCHC 32.3 % Normal 30.5-36.0 [facility] Comment on above: Performed By: #### L [id number] ####Assembly Machine Tender: MARY SOTELO ([id number])[facility])[address] [place] [address] MCV (RBC) [Entitic vol] 88.7 fL Normal 77.0-99.0 [facility] Comment on above: Performed By: #### L [id number] ####Assembly Machine Tender: MARY SOTELO ([id number])[facility])[address] [place] [address] Monocytes (Bld) [#/Vol] 1.4 10*3/uL High 0.0-0.9 [facility] Comment on above: Performed By: #### L [id number] ####Assembly Machine Tender: MARY SOTELO ([id number])[facility])[address] [place] [address] Monocytes/100 WBC (Bld) 7.2 % Normal 5.0-13.0 [facility] Comment on above: Performed By: #### L [id number] ####Assembly Machine Tender: MARY SOTELO ([id number])[facility])[address] [place] [address] NEUTROPHILS ABSOLUTE 16.1 10*3/uL High 1.8-7.5 [facility] Comment on above: Performed By: #### L [id number] ####Assembly Machine Tender: MARY SOTELO ([id number])[facility])[address] [place] [address] Neutrophils/100 WBC (Bld) 85.8 % High 38.0-82.0 [facility] Comment on above: Performed By: #### L [id number] ####Assembly Machine Tender: MARY SOTELO ([id number])[facility] ([facility])[address] [place] [address] NRBC 1.1 /100 WBCs Normal 0.0-2.0 [facility] Comment on above: Performed By: #### L [id number] ####Assembly Machine Tender: MARY SOTELO ([id number])[facility])[address] [place] [address] Platelet mean volume (Bld) [Entitic vol] 11.0 fL Normal 9.0-12.7 [facility] Comment on above: Performed By: #### L [id number] ####Assembly Machine Tender: MARY SOTELO ([id number])[facility] ([facility])[address] [place] [address] Platelets (Bld) [#/Vol] 244 10*3/uL Normal 140-440 [facility] Comment on above: Performed By: #### L [id number] ####Assembly Machine Tender: MARY SOTELO ([id number])[facility] ([facility])[address] [place] [address] RBC (Bld) [#/Vol] 3.53 10*6/uL Low 3.80-5.20 [facility] Comment on above: Performed By: #### L [id number] ####Assembly Machine Tender: MARY SOTELO ([id number])[facility] ([facility])[address] [place] [address] WBC (Bld) [#/Vol] 18.7 10*3/uL High 3.6-10.7 [facility] Comment on above: Performed By: #### L [id number] ####Assembly Machine Tender: MARY SOTELO ([id number])[facility] ([facility])[address] [place] [address] CBC-Complete Blood Cnt No Di ffon 07-26-2024 Erythrocyte distribution width (RBC) [Ratio] 15.0 % High 11.6-14.6 [facility] Comment on above: Performed By: #### L 100.0500, L500.3600 ####[facility] [address] [place], [address] Hematocrit (Bld) [Volume fraction] 22.7 % Low 37-47 [facility] Comment on above: Performed By: #### L 100.0500, L500.3600 ####[facility] [address] [place], [address] Hemoglobin (Bld) [Mass/Vol] 6.9 g/dL Low 12.0-15.0 [facility] Comment on above: Performed By: #### L 100.0500, L500.3600 ####[facility] [address] [place], [address] MCH (RBC) [Entitic mass] 28.9 pg Normal 27.0-32.0 [facility] Comment on above: Performed By: #### L 100.0500, L500.3600 ####[facility] [address] [place], [address] MCHC (RBC) [Mass/Vol] 30.4 g/dL Low 32-36 [facility] Comment on above: Performed By: #### L 100.0500, L500.3600 ####[facility] [address] [place], [address] MCV (RBC) [Entitic vol] 95.0 fL Normal 81-99 [facility] Comment on above: Performed By: #### L 100.0500, L500.3600 ####[facility] [address] [place], [address] Platelet mean volume (Bld) [Entitic vol] 10.8 fL Normal 6.2-12.0 [facility] Comment on above: Performed By: #### L 100.0500, L500.3600 ####[facility] [address] [place], [address] Platelets (Bld) [#/Vol] 164 10*3/uL Normal 150-450 [facility] Comment on above: Performed By: #### L 100.0500, L500.3600 ####[facility] [address] [place], [address] RBC (Bld) [#/Vol] 2.39 10*6/uL Low 4.2-5.4 [facility] Comment on above: Performed By: #### L 100.0500, L500.3600 ####[facility] [address] [place], [address] RDW SD 52.6 fl High 35.1-43.9 [facility] Comment on above: Performed By: #### L 100.0500, L500.3600 ####[facility] [address] [place], [address] WBC (Bld) [#/Vol] 8.3 10*3/uL Normal 4.4-11.0 [facility] Comment on above: Performed By: #### L 100.0500, L500.3600 ####[facility] [address] [place], [address] COMPREHENSIVE METABOLIC PANE [place] 07-26-2024 Albumin [Mass/Vol] 2.9 g/dL Low 3.5-5.0 [facility] Comment on above: Performed By: #### L AB17, ENJ901, UOA650, [id number], ARN990 ####Assembly Machine Tender: MARY SOTELO ([id number])[facility] ([facility])[address] [place] [address] [facility] ALP [Catalytic activity/Vol] 68 U/L Normal 38-126 [facility] Comment on above: Performed By: #### L AB17, ZEH204, OUT187, [id number], QAH565 ####Assembly Machine Tender: MARY SOTELO ([id number])[facility])[address] [place] [address] ALT [Catalytic activity/Vol] 21 U/L Normal 0-34 [facility] Comment on above: Performed By: #### L AB17, VGM735, JZE111, [id number], YGE905 ####Assembly Machine Tender: MARY SOTELO ([id number])[facility] ([facility])[address] [place] [address] Anion gap [Moles/Vol] 10 mmol/L Normal 3-13 [facility] Comment on above: Performed By: #### L AB17, AXL312, NKB727, [id number], XPS859 ####Assembly Machine Tender: MARY SOTELO ([id number])[facility])[address] [place] [address] AST [Catalytic activity/Vol] 40 U/L Normal 15-46 [facility] Comment on above: Performed By: #### L AB17, IGT806, UIN497, [id number], PKK866 ####Assembly Machine Tender: MARY SOTELO ([id number])[facility] ([facility])[address] [place] [address] Bilirubin [Mass/Vol] 0.5 mg/dL Normal 0.2-1.3 [facility] Comment on above: Performed By: #### L AB17, XWC780, MJM231, [id number], PXN686 ####Assembly Machine Tender: MARY SOTELO ([id number])[facility] ([facility])[address] [place] [address] Calcium [Mass/Vol] 5.5 mg/dL Critically low 8.4-10.4 [facility] Comment on above: Performed By: #### L AB17, FUK575, TWN038, [id number], EWM150 ####Assembly Machine Tender: MARY SOTELO ([id number])[facility])[address] [place] [address] [place] Chloride [Moles/Vol] 98 mmol/L Normal 98-107 [facility] Comment on above: Performed By: #### L AB17, QYD932, AEI053, [id number], POA021 ####Assembly Machine Tender: MARY SOTELO ([id number])[facility] [place] [address] CO2 [Moles/Vol] 17 mmol/L Low 22-30 [facility] Comment on above: Performed By: #### L AB17, HHG254, FOI581, [id number], LIW416 ####Assembly Machine Tender: MARY SOTELO ([id number])[facility])[address] [place] [address] Creatinine [Mass/Vol] 4.56 mg/dL High 0.52-1.04 [facility] Comment on above: Performed By: #### L AB17, KQP880, YRH574, [id number], CUJ985 ####Assembly Machine Tender: MARY SOTELO ([id number])[facility] ([facility])[address] [place] [address] [place] GLOMERULAR FILTRATION RATE ML/MIN/1.73 SQ M.PREDICTED 10.2 mL/min/1.73m*2 Low >60.0 [facility] Comment on above: Result Comment: Calc ulation based on the Chronic Kidney Disease Epidemiology Collaboration (CKD-EPI) equation refit without adjustment for race Performed By: #### L AB17, DAO138, VRG768, [id number], KSS314 ####Assembly Machine Tender: MARY SOTELO ([id number])[facility] ([facility])[address] [place] [address] [place] Glucose [Mass/Vol] 252 mg/dL High 70-100 [facility] Comment on above: Performed By: #### L AB17, DHI188, IJS293, [id number], RBN466 ####Assembly Machine Tender: MARY SOTELO ([id number])[facility])[address] [place] [address] [place] Potassium [Moles/Vol] 5.5 mmol/L High 3.5-5.1 [facility] Comment on above: Performed By: #### L AB17, PPZ065, QSX109, [id number], FYC282 ####Assembly Machine Tender: MARY SOTELO ([id number])[facility] ([facility])[address] [place] [address] Protein [Mass/Vol] 5.5 g/dL Low 6.3-8.2 [facility] Comment on above: Performed By: #### L AB17, IOJ890, DGG804, [id number], QQA076 ####Assembly Machine Tender: MARY SOTELO ([id number])[facility] ([facility])[address] [place] [address] Sodium [Moles/Vol] 125 mmol/L Low 135-145 [facility] Comment on above: Performed By: #### L AB17, UXR734, RUJ864, [id number], UIK832 ####Assembly Machine Tender: MARY SOTELO ([id number])[facility] ([facility])[address] [place] [address] Urea nitrogen [Mass/Vol] 76 mg/dL High 7-17 [facility] Comment on above: Performed By: #### L AB17, QQB312, WAY606, [id number], HSR610 ####Assembly Machine Tender: MARY SOTELO ([id number])[facility] ([facility])[address] [place] [address] CPK Total, Creatine Kinaseon 07-26-2024 CPK TOTAL 1209 U/L High 26-192 [facility] Comment on above: Order Comment: Comme nts: DC when propofol is d/c'dDC when propofol is d/c'd Performed By: #### L 501.3620, L501.5000 ####[facility] [address] [place], [address] CREATININE, URINE, RANDOMon 07-26-2024 CREATININE, URINE 96.9 mg/dL Normal No Range [facility] Comment on above: Performed By: #### L AB444, RHS521, BRA078 ####Assembly Machine Tender: MARY SOTELO ([id number])[facility] [place] [address] CT CERVICAL SPINE WO IV CONT RASTon 07-26-2024 CT CERVICAL SPINE WO IV CONTRAST Normal [facility] CT HEAD WO IV CONTRASTon CT HEAD WO IV CONTRAST Normal [facility] CXR for Line Placementon CXR for Line Placement Normal [facility] Chest 1 View (Portable)on Chest 1 View (Portable) Normal [facility] Consulton 07-26-2024 Consult Normal [facility] Consultation - Intensiviston 07-26-2024 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4%Diabetes 6.5% or higher--HgbA1C levels may not be accurate in patients who have renal disease, received recent blood transfusions, are anemic, or who have dyshemoglobinemia. Performed By: #### L AB90 ####Assembly Machine Tender: MARY SOTELO ([id number])[facility] [place] [address] LACTIC ACID WITH REFLEXon Lactate [Moles/Vol] 0.9 mmol/L Normal 0.7-2.0 [facility] Comment on above: Performed By: #### L [id number] ####Assembly Machine Tender: MARY SOTELO ([id number])[facility] [place] [address] LEGIONELLA AND STREPTOCOCCUS URINE ANTIGENon 07-26-2024 LEGIONELLA AND STREPTOCOCCUS URINE ANTIGEN Normal [facility] Comment on above: Performed By: #### L [id number] ####Assembly Machine Tender: MARY SOTELO ([id number])[facility] ([facility])[address] [place] [address] MAGNESIUMon 07-26-2024 Magnesium [Mass/Vol] 1.5 mg/dL Low 1.6-2.3 [facility] Comment on above: Performed By: #### L AB17, HBA773, HZL349, [id number], SIV066 ####Assembly Machine Tender: MARY SOTELO ([id number])[facility] ([facility])[address] [place] [address] MR/CON.PCM.NEon 07-26-2024 MR/CON.PCM.NE Normal [facility] OSMOLALITY, SERUMon 07-26-20 24 OSMOLALITY, SERUM 309 mOsm/kg High 280-300 [facility] Comment on above: Performed By: #### L AB107 ####Assembly Machine Tender: MARY SOTELO ([id number])[facility] ([facility])[address] [place] [address] [place] OSMOLALITY, URINEon 07-26-20 24 OSMOLALITY, URINE 316 mOsm/kg Normal 300-1000 [facility] Comment on above: Performed By: #### L AB444, ICJ360, JTB726 ####Assembly Machine Tender: MARY SOTELO ([id number])[facility] ([facility])[address] [place] [address] [place] PHOSPHORUSon 07-26-2024 Phosphate [Mass/Vol] 8.5 mg/dL High 2.5-4.5 [facility] Comment on above: Performed By: #### L AB17, BNE064, TGK597, [id number], SRH514 ####Assembly Machine Tender: MARY SOTELO ([id number])[facility] ([facility])[address] [place] [address] [place] PROCALCITONIN TESTon 024 PROCALCITONIN 2.48 ng/mL High 0.00-0.09 [facility] Comment on above: Result Comment: ORDE R COMMENTS:PCT <0.50 = Low risk of severe sepsis and/or septic shock.PCT >2.00 = High risk of severe sepsis and/or septic shock. Performed By: #### L [id number] ####Assembly Machine Tender: MARY SOTELO ([id number])[facility] ([facility])[address] [place] [address] Partial Thromboplast Timeon 07-26-2024 aPTT Coag (Bld) [Time] 33.7 s Normal 24.1-36.2 [facility] Comment on above: Performed By: #### L 300.4310, L300.3900 ####[facility] [address] [place], [address] Procedure Reporton Procedure Report Normal [facility] Procedure Report Normal [facility] Prothrombin Time w/INRon INR Coag (PPP) [Relative time] 1.3 {INR} Normal [facility] Comment on above: Performed By: #### L 300.4310, L300.3900 ####[facility] [address] [place], [address] PT Coag (PPP) [Time] 15.7 s High 11.7-14.9 [facility] Comment on above: Performed By: #### L 300.4310, L300.3900 ####[facility] [address] [place], [address] Renal Profileon 07-26-2024 Albumin [Mass/Vol] 2.4 g/dL Low 3.2-5.0 [facility] Comment on above: Performed By: #### L 100.0500, L500.3600 ####[facility] [address] [place], [address] BUN/CRE 15.4 RATIO Normal 10-20 [facility] Comment on above: Performed By: #### L 100.0500, L500.3600 ####[facility] [address] [place], [address] CA,Total 5.5 mg/dL Invalid Interpretation Code 8.5-10.1 [facility] Comment on above: Result Comment: Crit ical Result(s) Called at: 03:18:33 07/26/2024 by:Ana Rosa Andrew to [employer]. Results read back by same. Performed By: #### L 100.0500, L500.3600 ####[facility] [address] [place], [address] Chloride [Moles/Vol] 100 mmol/L Normal 98-107 [facility] Comment on above: Performed By: #### L 100.0500, L500.3600 ####[facility] [address] [place], [address] CO2 [Moles/Vol] 20.0 mmol/L Low 21.0-32.0 [facility] Comment on above: Performed By: #### L 100.0500, L500.3600 ####[facility] [address] [place], [address] Creatinine [Mass/Vol] 3.84 mg/dL High 0.55-1.02 [facility] Comment on above: Result Comment: The validity of the calculated GFR GFRAA in patients over70 years has not been determined. Clinical correlation isessential. Performed By: #### L 100.0500, L500.3600 ####[facility] [address] [place], [address] ECRCL 11.26 ml/min Normal [facility] Comment on above: Performed By: #### L 100.0500, L500.3600 ####[facility] [address] [place], [address] EST GFR - AA 15 mL/min Low >60 [facility] Comment on above: Result Comment: Afri can [place] GFR Calc Performed By: #### L 100.0500, L500.3600 ####[facility] [address] [place], [address] GFR/1.73 sq M.predicted among non-blacks MDRD (S/P/Bld) [Vol rate/Area] 13 mL/min/{1.73_m2} Low >60 [facility] Comment on above: Result Comment: Non- GFR Calc Performed By: #### L 100.0500, L500.3600 ####[facility] [address] [place], [address] Glucose [Mass/Vol] 167 mg/dL High 74-106 [facility] Comment on above: Result Comment: Fast ing Glucose result greater than or equal to 126 mg/dLsuggests DIABETES MELLITUS per A.D.A. criteria. Performed By: #### L 100.0500, L500.3600 ####[facility] [address] [place], [address] Phosphate [Mass/Vol] 7.0 mg/dL High 2.5-4.9 [facility] Comment on above: Performed By: #### L 100.0500, L500.3600 ####[facility] [address] [place], [address] Potassium [Moles/Vol] 5.6 mmol/L High 3.5-5.1 [facility] Comment on above: Performed By: #### L 100.0500, L500.3600 ####[facility] [address] [place], [address] Sodium [Moles/Vol] 131 mmol/L Low 136-145 [facility] Comment on above: Performed By: #### L 100.0500, L500.3600 ####[facility] [address] [place], [address] Urea nitrogen [Mass/Vol] 59 mg/dL High 7-18 [facility] Comment on above: Performed By: #### L 100.0500, L500.3600 ####[facility] [address] [place], [address] SODIUM, URINE, RANDOMon 07-05 Sodium (U) [Moles/Vol] 31 mmol/L Normal 30-90 [facility] Comment on above: Performed By: #### L AB444, YVB730, ZSE736 ####Assembly Machine Tender: MARY SOTELO ([id number])[facility] ([facility])[address] [place] [address] [place] THYROID STIMULATING HORMONEo n 07-26-2024 THYROID STIMULATING HORMONE 3.472 uIU/mL Normal 0.465-4.680 [facility] Comment on above: Performed By: #### L AB17, JUN341, FGC394, [id number], FCQ513 ####Assembly Machine Tender: MARY SOTELO ([id number])[facility] [place] [address] [place] TROPONIN Ion 07-26-2024 Troponin I.cardiac [Mass/Vol] 0.014 ng/mL Normal <0.034 [facility] Comment on above: Result Comment: BINA Olivarez COMMENTS:Patients with high levels of Biotin oral intake (ie >5 mg/day) may have falsely decreased Troponin levels. Performed By: #### L AB747 ####Assembly Machine Tender: MARY SOTELO ([id number])[facility] [place] [address] [place] TROPONIN, WITH SERIAL REFLEX on 07-26-2024 Troponin I.cardiac [Mass/Vol] 0.013 ng/mL Normal <0.034 [facility] Comment on above: Result Comment: BINA R COMMENTS:Patients with high levels of Biotin oral intake (ie >5 mg/day) may have falsely decreased Troponin levels. Performed By: #### L AB17, ITS157, VMO454, [id number], KPW372 ####Assembly Machine Tender: MARY SOTELO ([id number])[facility] ([facility])[address] [place] [address] Triglycerideson 07-26-2024 Triglyceride [Mass/Vol] 103 mg/dL Normal [facility] Comment on above: Order Comment: Comme nts: DC when propofol is d/c'dDC when propofol is d/c'd Result Comment: The drugs N-Acetylcysteine and Metamizole may falselydepress this assay.Serum Triglycerides Reference Interval Normal <150 mg/dL Borderline high 150 - 199 mg/dL High 200 - 499 mg/dL Very High > or = 500 mg/dL Performed By: #### L 501.3620, L501.5000 ####[facility] [address] [place], [address] XR ABDOMEN 1 VIEWon 07-26-20 24 XR ABDOMEN 1 VIEW Normal [facility] XR CHEST 1 VIEWon 07-26-2024 XR CHEST 1 VIEW Normal [facility] Basic Metabolic Profile (BMP )on 07-25-2024 BUN/CRE 13.8 RATIO Normal 10-20 [facility] Comment on above: Performed By: #### L 500.2500 ####[facility] [address] [place], [place], [address] [place],Total 5.7 mg/dL Invalid Interpretation Code 8.5-10.1 [facility] Comment on above: Result Comment: Crit ical Result(s) Called at: 07:31:06 07/25/2024 by: Hannah Velazquez RN (U). Results read back by same. Performed By: #### L 500.2500 ####[facility] [address] [place], [address] Chloride [Moles/Vol] 97 mmol/L Low 98-107 [facility] Comment on above: Performed By: #### L 500.2500 ####[facility] [address] [place], [address] CO2 [Moles/Vol] 23.0 mmol/L Normal 21.0-32.0 [facility] Comment on above: Performed By: #### L 500.2500 ####[facility] [address] [place], [address] Creatinine [Mass/Vol] 3.77 mg/dL High 0.55-1.02 [facility] Comment on above: Result Comment: The validity of the calculated GFR GFRAA in patients over70 years has not been determined. Clinical correlation isessential. Performed By: #### L 500.2500 ####[facility] [address] [place], [address] ECRCL 11.47 ml/min Normal [facility] Comment on above: Performed By: #### L 500.2500 ####[facility] [address] [place], [address] EST GFR - AA 16 mL/min Low >60 [facility] Comment on above: Result Comment: Afri can [place] GFR Calc Performed By: #### L 500.2500 ####[facility] [address] [place], [address] GAP 10 Normal 5-15 [facility] Comment on above: Performed By: #### L 500.2500 ####[facility] [address] [place], [address] GFR/1.73 sq M.predicted among non-blacks MDRD (S/P/Bld) [Vol rate/Area] 13 mL/min/{1.73_m2} Low >60 [facility] Comment on above: Result Comment: Non- GFR Calc Performed By: #### L 500.2500 ####[facility] [address] [place], [address] Glucose [Mass/Vol] 275 mg/dL High 74-106 [facility] Comment on above: Result Comment: Gluc ose result greater than or equal to 200 mg/dLsuggests DIABETES MELLITUS per A.D.A. criteria. Performed By: #### L 500.2500 ####[facility] [address] [place], [address] Potassium [Moles/Vol] 5.1 mmol/L Normal 3.5-5.1 [facility] Comment on above: Performed By: #### L 500.2500 ####[facility] [address] [place], [address] Sodium [Moles/Vol] 130 mmol/L Low 136-145 [facility] Comment on above: Performed By: #### L 500.2500 ####[facility] [address] [place], [address] Urea nitrogen [Mass/Vol] 52 mg/dL High 7-18 [facility] Comment on above: Performed By: #### L 500.2500 ####[facility] [address] [place], [address] Bedside Glucoseon 07-25-2024 FINGERSTICK GLU 249 mg/dL High 74-106 [facility] Comment on above: Result Comment: SHELLY GEMENT OF PATIENT CARE PER NURSING PROTOCOL Performed By: #### L 501.080 ####[facility] [address] [place], [address] FINGERSTICK GLU 140 mg/dL High 74-106 [facility] Comment on above: Result Comment: SHELLY GEMENT OF PATIENT CARE PER NURSING PROTOCOL Performed By: #### L 501.080 ####[facility] [address] [place], [address] FINGERSTICK GLU 270 mg/dL High 74-106 [facility] Comment on above: Result Comment: SHELLY GEMENT OF PATIENT CARE PER NURSING PROTOCOL Performed By: #### L 501.080 ####[facility] [address] [place], [address] CBC W/Diff, Automatedon 09-2 Absolute Lymph 1.26 X10 3/uL Normal 0.83-4.51 [facility] Comment on above: Performed By: #### L 100.0100 ####[facility] [address] [place], [address] Absolute Neut 7.1 X10 3/uL Normal 2.0-7.7 [facility] Comment on above: Performed By: #### L 100.0100 ####[facility] [address] [place], [address] Basophils/100 WBC (Bld) 0.2 % Normal 0-1 [facility] Comment on above: Performed By: #### L 100.0100 ####[facility] [address] [place], [address] Eosinophils/100 WBC (Bld) 0.6 % Normal 0-5 [facility] Comment on above: Performed By: #### L 100.0100 ####[facility] [address] [place], [address] Erythrocyte distribution width (RBC) [Ratio] 15.1 % High 11.6-14.6 [facility] Comment on above: Performed By: #### L 100.0100 ####[facility] [address] [place], [address] Hematocrit (Bld) [Volume fraction] 26.8 % Low 37-47 [facility] Comment on above: Performed By: #### L 100.0100 ####[facility] [address] [place], [address] Hemoglobin (Bld) [Mass/Vol] 8.0 g/dL Low 12.0-15.0 [facility] Comment on above: Performed By: #### L 100.0100 ####[facility] [address] [place], [address] IG% 0.800 Normal 0.0-0.9 [facility] Comment on above: Result Comment: IG% - Immature Granulocytes (promyelocytes, myelocytes andmetamyelocytes) > 1% indicates that a LEFT SHIFT is Present. Performed By: #### L 100.0100 ####[facility] [address] [place], [address] Lymphocytes/100 WBC (Bld) 13.5 % Low 19-41 [facility] Comment on above: Performed By: #### L 100.0100 ####[facility] [address] [place], [address] MCH (RBC) [Entitic mass] 28.5 pg Normal 27.0-32.0 [facility] Comment on above: Performed By: #### L 100.0100 ####[facility] [address] [place], [address] MCHC (RBC) [Mass/Vol] 29.9 g/dL Low 32-36 [place] [facility] Comment on above: Performed By: #### L 100.0100 ####[facility] [address] [place], [address] MCV (RBC) [Entitic vol] 95.4 fL Normal 81-99 [facility] Comment on above: Performed By: #### L 100.0100 ####[facility] [address] [place], [address] Monocytes/100 WBC (Bld) 9.1 % Normal 0-10 [facility] Comment on above: Performed By: #### L 100.0100 ####[facility] [address] [place], [address] Neutrophils/100 WBC (Bld) 75.8 % High 47-70 [facility] Comment on above: Performed By: #### L 100.0100 ####[facility] [address] [place], [address] Nucleated RBC (Bld) [#/Vol] 0.3 10*3/uL Normal 0-5 [facility] Comment on above: Performed By: #### L 100.0100 ####[facility] [address] [place], [address] Platelet mean volume (Bld) [Entitic vol] 11.0 fL Normal 6.2-12.0 [facility] Comment on above: Performed By: #### L 100.0100 ####[facility] [address] [place], [address] Platelets (Bld) [#/Vol] 204 10*3/uL Normal 150-450 [facility] Comment on above: Performed By: #### L 100.0100 ####[facility] [address] [place], [address] RBC (Bld) [#/Vol] 2.81 10*6/uL Low 4.2-5.4 [facility] Comment on above: Performed By: #### L 100.0100 ####[facility] [address] [place], [address] RDW SD 53.3 fl High 35.1-43.9 [facility] Comment on above: Performed By: #### L 100.0100 ####[facility] [address] [place], [address] WBC (Bld) [#/Vol] 9.3 10*3/uL Normal 4.4-11.0 [facility] Comment on above: Performed By: #### L 100.0100 ####[facility] [address] [place], [address] HH, Hemoglobin AND Hematocri ton 07-25-2024 Hematocrit (Bld) [Volume fraction] 28.5 % Low 37-47 [facility] Comment on above: Performed By: #### L 100.0600 ####[facility] [address] [place], [address] Hemoglobin (Bld) [Mass/Vol] 8.7 g/dL Low 12.0-15.0 [facility] Comment on above: Performed By: #### L 100.0600 ####[facility] [address] [place], [address] 12 Lead EKGon 07-24-2024 12 Lead EKG Normal [facility] BNP,B-Type NATRIURETIC PEPTI Rinku 07-24-2024 Natriuretic peptide B (Bld) [Mass/Vol] 2478.5 pg/mL High 0-100 [facility] Comment on above: Performed By: #### L 501.2300, L501.3620, L509.7000, L101.9900, L501.5200, L503.6550, L501.6710, L503.6030, L504.2610, L503.6620, L300.8000 ####[facility] [address] [place], [address] Basic Metabolic Profile (BMP )on 07-24-2024 BUN Normal 7-18 [facility] Comment on above: Result Comment: Canc elled via OM: Order edited - Discontinuing original order Performed By: #### L 500.2500 ####[facility] [address] [place], [address] BUN/CRE Normal 10-20 [facility] Comment on above: Result Comment: Canc elled via OM: Order edited - Discontinuing original order Performed By: #### L 500.2500 ####[facility] [address] [place], [address] CA,Total Normal 8.5-10.1 [facility] Comment on above: Result Comment: Canc elled via OM: Order edited - Discontinuing original order Performed By: #### L 500.2500 ####[facility] [address] [place], [address] CL Normal 98-107 [facility] Comment on above: Result Comment: Canc elled via OM: Order edited - Discontinuing original order Performed By: #### L 500.2500 ####[facility] [address] [place], [address] CO2 Normal 21.0-32.0 [facility] Comment on above: Result Comment: Canc elled via OM: Order edited - Discontinuing original order Performed By: #### L 500.2500 ####[facility] [address] [place], [address] CREAT,SERUM Normal 0.55-1.02 [facility] Comment on above: Result Comment: Canc elled via OM: Order edited - Discontinuing original order Performed By: #### L 500.2500 ####[facility] [address] [place], [address] EST GFR Normal >60 [facility] Comment on above: Result Comment: Canc elled via OM: Order edited - Discontinuing original order Performed By: #### L 500.2500 ####[facility] [address] [place], [address] EST GFR - AA Normal >60 [facility] Comment on above: Result Comment: Canc elled via OM: Order edited - Discontinuing original order Performed By: #### L 500.2500 ####[facility] [address] [place], [address] GAP Normal 5-15 [facility] Comment on above: Result Comment: Canc elled via OM: Order edited - Discontinuing original order Performed By: #### L 500.2500 ####[facility] [address] [place], [address] GLU Normal 74-106 [facility] Comment on above: Result Comment: Canc elled via OM: Order edited - Discontinuing original order Performed By: #### L 500.2500 ####[facility] [address] [place], [address] Potassium Normal 3.5-5.1 [facility] Comment on above: Result Comment: Canc elled via OM: Order edited - Discontinuing original order Performed By: #### L 500.2500 ####[facility] [address] [place], [address] Basic Metabolic Profile (BMP) Normal 136-145 [facility] Comment on above: Result Comment: Canc elled via OM: Order edited - Discontinuing original order Performed By: #### L 500.2500 ####[facility] [address] [place], [address] BUN/CRE 14.2 RATIO Normal 10-20 [facility] Comment on above: Performed By: #### L 500.2500 ####[facility] [address] [place], [address] CA,Total 5.5 mg/dL Invalid Interpretation Code 8.5-10.1 [facility] Comment on above: Performed By: #### L 500.2500 ####[facility] [address] [place], [address] Chloride [Moles/Vol] 103 mmol/L Normal 98-107 [facility] Comment on above: Performed By: #### L 500.2500 ####[facility] [address] [place], [address] CO2 [Moles/Vol] 24.0 mmol/L Normal 21.0-32.0 [facility] Comment on above: Performed By: #### L 500.2500 ####[facility] [address] [place], [address] Creatinine [Mass/Vol] 3.65 mg/dL High 0.55-1.02 [facility] Comment on above: Result Comment: The validity of the calculated GFR GFRAA in patients over70 years has not been determined. Clinical correlation isessential. Performed By: #### L 500.2500 ####[facility] [address] [place], [address] ECRCL 11.92 ml/min Normal [facility] Comment on above: Performed By: #### L 500.2500 ####[facility] [address] [place], [address] EST GFR - AA 16 mL/min Low >60 [facility] Comment on above: Result Comment: Afri can [place] GFR Calc Performed By: #### L 500.2500 ####[facility] [address] [place], [address] GAP 8 Normal 5-15 [facility] Comment on above: Performed By: #### L 500.2500 ####[facility] [address] [place], [address] GFR/1.73 sq M.predicted among non-blacks MDRD (S/P/Bld) [Vol rate/Area] 13 mL/min/{1.73_m2} Low >60 [facility] Comment on above: Result Comment: Non- GFR Calc Performed By: #### L 500.2500 ####[facility] [address] [place], [address] Glucose [Mass/Vol] 215 mg/dL High 74-106 [facility] Comment on above: Result Comment: Gluc ose result greater than or equal to 200 mg/dLsuggests DIABETES MELLITUS per A.D.A. criteria. Performed By: #### L 500.2500 ####[facility] [address] [place], [address] Potassium [Moles/Vol] 5.2 mmol/L High 3.5-5.1 [facility] Comment on above: Performed By: #### L 500.2500 ####[facility] [address] [place], [address] Sodium [Moles/Vol] 135 mmol/L Low 136-145 [facility] Comment on above: Performed By: #### L 500.2500 ####[facility] [address] [place], [address] Urea nitrogen [Mass/Vol] 52 mg/dL High 7-18 [facility] Comment on above: Performed By: #### L 500.2500 ####[facility] [address] [place], [address] Bedside Glucoseon 07-24-2024 FINGERSTICK GLU 239 mg/dL High 74-106 [facility] Comment on above: Result Comment: SHELLY GEMENT OF PATIENT CARE PER NURSING PROTOCOL Performed By: #### L 501.080 ####[facility] [address] [place], [address] FINGERSTICK GLU 281 mg/dL High 74-106 [facility] Comment on above: Result Comment: SHELLY GEMENT OF PATIENT CARE PER NURSING PROTOCOL Performed By: #### L 501.080 ####[facility] [address] [place], [address] FINGERSTICK GLU 287 mg/dL High 74-106 [facility] Comment on above: Result Comment: SHELLY GEMENT OF PATIENT CARE PER NURSING PROTOCOL Performed By: #### L 501.080 ####[facility] [address] [place], [address] FINGERSTICK GLU 193 mg/dL High 74-106 [facility] Comment on above: Result Comment: SHELLY GEMENT OF PATIENT CARE PER NURSING PROTOCOL Performed By: #### L 501.080 ####[facility] [address] [place], [address] FINGERSTICK GLU 337 mg/dL High 74-106 [facility] Comment on above: Result Comment: SHELLY GEMENT OF PATIENT CARE PER NURSING PROTOCOL Performed By: #### L 501.080 ####[facility] [address] [place], [address] FINGERSTICK GLU 177 mg/dL High 74-106 [facility] Comment on above: Result Comment: SHELLY GEMENT OF PATIENT CARE PER NURSING PROTOCOL Performed By: #### L 501.080 ####[facility] [address] [place], [address] FINGERSTICK GLU 225 mg/dL High 74-106 [facility] Comment on above: Result Comment: SHELLY GEMENT OF PATIENT CARE PER NURSING PROTOCOL Performed By: #### L 501.080 ####[facility] [address] [place], [address] CBC W/Diff, Automatedon 07-05 Absolute Lymph 0.47 X10 3/uL Low 0.83-4.51 [facility] Comment on above: Performed By: #### L 501.9985, L506.1000, L100.0100, L500.4050, L509.1000, L3300.0960 ####[facility] [address] [place], [address] Absolute Neut 6.3 X10 3/uL Normal 2.0-7.7 [facility] Comment on above: Performed By: #### L 501.9985, L506.1000, L100.0100, L500.4050, L509.1000, L3300.0960 ####[facility] [address] [place], [address] Basophils/100 WBC (Bld) 0.7 % Normal 0-1 [facility] Comment on above: Performed By: #### L 501.9985, L506.1000, L100.0100, L500.4050, L509.1000, L3300.0960 ####[facility] [address] [place], [address] Eosinophils/100 WBC (Bld) 1.6 % Normal 0-5 [facility] Comment on above: Performed By: #### L 501.9985, L506.1000, L100.0100, L500.4050, L509.1000, L3300.0960 ####[facility] [address] [place], [address] Erythrocyte distribution width (RBC) [Ratio] 14.9 % High 11.6-14.6 [facility] Comment on above: Performed By: #### L 501.9985, L506.1000, L100.0100, L500.4050, L509.1000, L3300.0960 ####[facility] [address] [place], [address] Hematocrit (Bld) [Volume fraction] 29.4 % Low 37-47 [facility] Comment on above: Performed By: #### L 501.9985, L506.1000, L100.0100, L500.4050, L509.1000, L3300.0960 ####[facility] [address] [place], [address] Hemoglobin (Bld) [Mass/Vol] 8.6 g/dL Low 12.0-15.0 [facility] Comment on above: Performed By: #### L 501.9985, L506.1000, L100.0100, L500.4050, L509.1000, L3300.0960 ####[facility] [address] [place], [address] IG% 2.100 High 0.0-0.9 [facility] Comment on above: Result Comment: IG% - Immature Granulocytes (promyelocytes, myelocytes andmetamyelocytes) > 1% indicates that a LEFT SHIFT is Present. Performed By: #### L 501.9985, L506.1000, L100.0100, L500.4050, L509.1000, L3300.0960 ####[facility] [address] [place], [address] Lymphocytes/100 WBC (Bld) 6.5 % Low 19-41 [facility] Comment on above: Performed By: #### L 501.9985, L506.1000, L100.0100, L500.4050, L509.1000, L3300.0960 ####[facility] [address] [place], [address] MCH (RBC) [Entitic mass] 28.2 pg Normal 27.0-32.0 [facility] Comment on above: Performed By: #### L 501.9985, L506.1000, L100.0100, L500.4050, L509.1000, L3300.0960 ####[facility] [address] [place], [address] MCHC (RBC) [Mass/Vol] 29.3 g/dL Low 32-36 [facility] Comment on above: Performed By: #### L 501.9985, L506.1000, L100.0100, L500.4050, L509.1000, L3300.0960 ####[facility] [address] [place], [address] MCV (RBC) [Entitic vol] 96.4 fL Normal 81-99 [facility] Comment on above: Performed By: #### L 501.9985, L506.1000, L100.0100, L500.4050, L509.1000, L3300.0960 ####[facility] [address] [place], [address] Monocytes/100 WBC (Bld) 2.2 % Normal 0-10 [facility] Comment on above: Performed By: #### L 501.9985, L506.1000, L100.0100, L500.4050, L509.1000, L3300.0960 ####[facility] [address] [place], [address] Neutrophils/100 WBC (Bld) 86.9 % High 47-70 [facility] Comment on above: Performed By: #### L 501.9985, L506.1000, L100.0100, L500.4050, L509.1000, L3300.0960 ####[facility] [address] [place], [address] Nucleated RBC (Bld) [#/Vol] 0.3 10*3/uL Normal 0-5 [facility] Comment on above: Performed By: #### L 501.9985, L506.1000, L100.0100, L500.4050, L509.1000, L3300.0960 ####[facility] [address] [place], [address] Platelet mean volume (Bld) [Entitic vol] 10.3 fL Normal 6.2-12.0 [facility] Comment on above: Performed By: #### L 501.9985, L506.1000, L100.0100, L500.4050, L509.1000, L3300.0960 ####[facility] [address] [place], [address] Platelets (Bld) [#/Vol] 196 10*3/uL Normal 150-450 [facility] Comment on above: Performed By: #### L 501.9985, L506.1000, L100.0100, L500.4050, L509.1000, L3300.0960 ####[facility] [address] [place], [address] RBC (Bld) [#/Vol] 3.05 10*6/uL Low 4.2-5.4 [facility] Comment on above: Performed By: #### L 501.9985, L506.1000, L100.0100, L500.4050, L509.1000, L3300.0960 ####[facility] [address] [place], [address] RDW SD 52.3 fl High 35.1-43.9 [facility] Comment on above: Performed By: #### L 501.9985, L506.1000, L100.0100, L500.4050, L509.1000, L3300.0960 ####[facility] [address] [place], [address] WBC (Bld) [#/Vol] 7.3 10*3/uL Normal 4.4-11.0 [facility] Comment on above: Performed By: #### L 501.9985, L506.1000, L100.0100, L500.4050, L509.1000, L3300.0960 ####[facility] [address] [place], [address] CPK Total, Creatine Kinaseon 07-24-2024 CPK TOTAL 604 U/L High 26-192 [facility] Comment on above: Order Comment: Comme nts: May add to ED labsComments: add to ED labsComments: may add to ED labsmay add to ED labs Performed By: #### L 501.2300, L501.3620, L509.7000, L101.9900, L501.5200, L503.6550, L501.6710, L503.6030, L504.2610, L503.6620, L300.8000 ####[facility] [address] [place], [address] CRPon 07-24-2024 C-REACTIVE PROT 62.00 mg/L High 0.0-3.0 [facility] Comment on above: Order Comment: [...] (HSCRP)should be ordered. Performed By: #### L 501.2300, L501.3620, L509.7000, L101.9900, L501.5200, L503.6550, L501.6710, L503.6030, L504.2610, L503.6620, L300.8000 ####[facility] [address] [place], [address] Calcium, Urine (Random)on Calcium Ur [place] < 5.0 Normal Not Estab. [facility] Comment on above: Performed By: #### L 501.2240 ####[facility] [address] [place], [address] Comprehensive Metabolic Prof ilon 07-24-2024 Albumin [Mass/Vol] 2.9 g/dL Low 3.2-5.0 [facility] Comment on above: Performed By: #### L 501.9985, L506.1000, L100.0100, L500.4050, L509.1000, L3300.0960 ####[facility] [address] [place], [address] Albumin/Globulin [Mass ratio] 0.7 {ratio} Low 0.9-2.4 [facility] Comment on above: Performed By: #### L 501.9985, L506.1000, L100.0100, L500.4050, L509.1000, L3300.0960 ####[facility] [address] [place], [address] ALK P 78 U/L Normal 45-117 [facility] Comment on above: Performed By: #### L 501.9985, L506.1000, L100.0100, L500.4050, L509.1000, L3300.0960 ####[facility] [address] [place], [address] ALT [Catalytic activity/Vol] 17 U/L Normal 13-56 [facility] Comment on above: Performed By: #### L 501.9985, L506.1000, L100.0100, L500.4050, L509.1000, L3300.0960 ####[facility] [address] [place], [address] AST [Catalytic activity/Vol] 18 U/L Normal 15-37 [facility] Comment on above: Performed By: #### L 501.9985, L506.1000, L100.0100, L500.4050, L509.1000, L3300.0960 ####[facility] [address] [place], [address] Bilirubin [Mass/Vol] 0.40 mg/dL Normal 0.20-1.00 [facility] Comment on above: Result Comment: For patients on eltrombopag therapy, use of Dimension [place] TBIL is not recommended. Performed By: #### L 501.9985, L506.1000, L100.0100, L500.4050, L509.1000, L3300.0960 ####[facility] [address] [place], [address] BUN/CRE 12.2 RATIO Normal 10-20 [facility] Comment on above: Performed By: #### L 501.9985, L506.1000, L100.0100, L500.4050, L509.1000, L3300.0960 ####[facility] [address] [place], [address] CA,Total 5.7 mg/dL Invalid Interpretation Code 8.5-10.1 [facility] Comment on above: Result Comment: Crit ical Result(s) Called at: 11:08:06 07/24/2024 by: Hannah Deleon RN ([facility]). Results read back by same. Performed By: #### L 501.9985, L506.1000, L100.0100, L500.4050, L509.1000, L3300.0960 ####[facility] [address] [place], [address] Chloride [Moles/Vol] 103 mmol/L Normal 98-107 [facility] Comment on above: Performed By: #### L 501.9985, L506.1000, L100.0100, L500.4050, L509.1000, L3300.0960 ####[facility] [address] [place], [address] CO2 [Moles/Vol] 23.0 mmol/L Normal 21.0-32.0 [facility] Comment on above: Performed By: #### L 501.9985, L506.1000, L100.0100, L500.4050, L509.1000, L3300.0960 ####[facility] [address] [place], [address] Creatinine [Mass/Vol] 3.45 mg/dL High 0.55-1.02 [facility] Comment on above: Result Comment: The validity of the calculated GFR GFRAA in patients over70 years has not been determined. Clinical correlation isessential. Performed By: #### L 501.9985, L506.1000, L100.0100, L500.4050, L509.1000, L3300.0960 ####[facility] [address] [place], [address] ECRCL 12.61 ml/min Normal [facility] Comment on above: Performed By: #### L 501.9985, L506.1000, L100.0100, L500.4050, L509.1000, L3300.0960 ####[facility] [address] [place], [address] EST GFR - AA 17 mL/min Low >60 [facility] Comment on above: Result Comment: Afri can [place] GFR Calc Performed By: #### L 501.9985, L506.1000, L100.0100, L500.4050, L509.1000, L3300.0960 ####[facility] [address] [place], [address] GAP 8 Normal 5-15 [facility] Comment on above: Performed By: #### L 501.9985, L506.1000, L100.0100, L500.4050, L509.1000, L3300.0960 ####[facility] [address] [place], [address] GFR/1.73 sq M.predicted among non-blacks MDRD (S/P/Bld) [Vol rate/Area] 14 mL/min/{1.73_m2} Low >60 [facility] Comment on above: Result Comment: Non- GFR Calc Performed By: #### L 501.9985, L506.1000, L100.0100, L500.4050, L509.1000, L3300.0960 ####[facility] [address] [place], [address] Globulin (S) [Mass/Vol] 3.9 g/dL Normal 2.2-4.2 [facility] Comment on above: Performed By: #### L 501.9985, L506.1000, L100.0100, L500.4050, L509.1000, L3300.0960 ####[facility] [address] [place], [address] Glucose [Mass/Vol] 220 mg/dL High 74-106 [facility] Comment on above: Result Comment: Gluc ose result greater than or equal to 200 mg/dLsuggests DIABETES MELLITUS per A.D.A. criteria. Performed By: #### L 501.9985, L506.1000, L100.0100, L500.4050, L509.1000, L3300.0960 ####[facility] [address] [place], [address] Potassium [Moles/Vol] 6.2 mmol/L Invalid Interpretation Code 3.5-5.1 [facility] Comment on above: Result Comment: Crit ical Result(s) Called at: 11:08:06 07/24/2024 by: Hannah Deleon RN ([facility]). Results read back by same. Performed By: #### L 501.9985, L506.1000, L100.0100, L500.4050, L509.1000, L3300.0960 ####[facility] [address] [place], [address] Sodium [Moles/Vol] 134 mmol/L Low 136-145 [facility] Comment on above: Performed By: #### L 501.9985, L506.1000, L100.0100, L500.4050, L509.1000, L3300.0960 ####[facility] [address] [place], [address] T PROT 6.8 g/dL Normal 6.4-8.2 [facility] Comment on above: Performed By: #### L 501.9985, L506.1000, L100.0100, L500.4050, L509.1000, L3300.0960 ####[facility] [address] [place], [address] Urea nitrogen [Mass/Vol] 42 mg/dL High 7-18 [facility] Comment on above: Performed By: #### L 501.9985, L506.1000, L100.0100, L500.4050, L509.1000, L3300.0960 ####[facility] [address] [place], [address] Consultation - Nephrologyon 07-24-2024 Consultation - Nephrology Normal [facility] Creatinine, Urine (random)on 07-24-2024 UR CREAT 78.60 mg/dL Normal NO RANGE EST. [facility] Comment on above: Performed By: #### L 501.5500, L501.1200 ####[facility] [address] [place], [address] D-Dimer Quantitative (DVT/PE )on 07-24-2024 D-DIMER QUANT 2.82 FEU/ug/m Invalid Interpretation Code 0.27-0.49 [facility] Comment on above: Result Comment: D-Di vera ELEVATED (>0.49): Additional studies and clinicalassessments are indicated to conclude diagnosis of:Deep Vein Thrombosis (DVT) or Pulmonary Embolism (PE)CRITICAL VALUE CALLED TO APPWJNGCE45/21/24 0038 Ana Rosa Andrew.RESULTS READ BACK BY SAME. Performed By: #### L 501.2300, L501.3620, L509.7000, L101.9900, L501.5200, L503.6550, L501.6710, L503.6030, L504.2610, L503.6620, L300.8000 ####[facility] [address] [place], [place], [id number] Erythrocyte Sed Rateon 07-24 SED RATE 21 mm/hr Normal 0-30 [facility] Comment on above: Performed By: #### L 501.2300, L501.3620, L509.7000, L101.9900, L501.5200, L503.6550, L501.6710, L503.6030, L504.2610, L503.6620, L300.8000 ####[facility] [address] [place], [place], [id number] Ferritinon 07-24-2024 Ferritin [Mass/Vol] 106 ng/mL Normal 8-252 [facility] Comment on above: Order Comment: Comme nts: May add to ED labsComments: add to ED labsComments: may add to ED labsmay add to ED labs Performed By: #### L 501.2300, L501.3620, L509.7000, L101.9900, L501.5200, L503.6550, L501.6710, L503.6030, L504.2610, L503.6620, L300.8000 ####[facility] [address] [place], [place], [id number] Hemoglobin A1con 07-24-2024 HbA1c (Bld) [Mass fraction] 5.7 % High 3.8-5.6 [facility] Comment on above: Result Comment: Norm al < 5.7 % Prediabetic 5.7 - 6.4 % Diabetic >or= 6.5 % Please note range changes. Performed By: #### L 501.9985, L506.1000, L100.0100, L500.4050, L509.1000, L3300.0960 ####[facility] [address] [place], [address] Iron+Iron Binding Capacityon 07-24-2024 Iron [Mass/Vol] 24 ug/dL Low 50-170 [facility] Comment on above: Order Comment: Comme nts: May add to ED labsComments: add to ED labsComments: may add to ED labsmay add to ED labs Performed By: #### L 501.2300, L501.3620, L509.7000, L101.9900, L501.5200, L503.6550, L501.6710, L503.6030, L504.2610, L503.6620, L300.8000 ####[facility] [address] [place], [address] IRON SATURATION 10.3 Low 15.0-55.0 [facility] Comment on above: Order Comment: Comme nts: May add to ED labsComments: add to ED labsComments: may add to ED labsmay add to ED labs Performed By: #### L 501.2300, L501.3620, L509.7000, L101.9900, L501.5200, L503.6550, L501.6710, L503.6030, L504.2610, L503.6620, L300.8000 ####[facility] [address] [place], [address] TIBC 233 ug/dL Low 250-450 [facility] Comment on above: Order Comment: Comme nts: May add to ED labsComments: add to ED labsComments: may add to ED labsmay add to ED labs Performed By: #### L 501.2300, L501.3620, L509.7000, L101.9900, L501.5200, L503.6550, L501.6710, L503.6030, L504.2610, L503.6620, L300.8000 ####[facility] [address] [place], [address] Kidney and Bladderon 024 Kidney and Bladder Normal [facility] L501.2276on 07-24-2024 Ionized Calcium 3.39 mg/dL Low 4.36-5.20 [facility] Comment on above: Performed By: #### L 501.4206 ####[facility] [address] [place], [address] LDHon 07-24-2024 LDH 334 U/L High 84-246 [facility] Comment on above: Order Comment: Comme nts: May add to ED labsComments: add to ED labsComments: may add to ED labsmay add to ED labs Performed By: #### L 501.2300, L501.3620, L509.7000, L101.9900, L501.5200, L503.6550, L501.6710, L503.6030, L504.2610, L503.6620, L300.8000 ####[facility] [address] [place], [address] Liver Profileon 07-24-2024 Albumin [Mass/Vol] 2.7 g/dL Low 3.2-5.0 [facility] Comment on above: Performed By: #### L 500.3401 ####[facility] [address] [place], [address] ALK P 75 U/L Normal 45-117 [facility] Comment on above: Performed By: #### L 500.3405 ####[facility] [address] [place], [address] ALT [Catalytic activity/Vol] 17 U/L Normal 13-56 [facility] Comment on above: Performed By: #### L 500.3400 ####[facility] [address] [place], [address] AST [Catalytic activity/Vol] 17 U/L Normal 15-37 [facility] Comment on above: Performed By: #### L 500.3400 ####[facility] [address] [place], [address] Bilirubin [Mass/Vol] 0.20 mg/dL Normal 0.20-1.00 [facility] Comment on above: Result Comment: For patients on eltrombopag therapy, use of Dimension [place]gett TBIL is not recommended. Performed By: #### L 500.3400 ####[facility] [address] [place], [address] Bilirubin.direct [Mass/Vol] 0.10 mg/dL Normal 0.00-0.30 [facility] Comment on above: Performed By: #### L 500.3400 ####[facility] [address] [place], [address] Globulin (S) [Mass/Vol] 3.7 g/dL Normal 2.2-4.2 [facility] Comment on above: Performed By: #### L 500.3400 ####[facility] [address] [place], [address] T PROT 6.4 g/dL Normal 6.4-8.2 [facility] Comment on above: Performed By: #### L 500.3400 ####[facility] [address] [place], [address] M100.678on 07-24-2024 M100.678 Normal [facility] Comment on above: Performed By: #### M 100.678 ####[facility] [address] [place], [address] Magnesiumon 07-24-2024 Magnesium [Mass/Vol] 1.6 mg/dL Normal 1.6-2.6 [facility] Comment on above: Order Comment: Comme nts: May add to ED labsComments: add to ED labsComments: may add to ED labsmay add to ED labs Performed By: #### L 501.2300, L501.3620, L509.7000, L101.9900, L501.5200, L503.6550, L501.6710, L503.6030, L504.2610, L503.6620, L300.8000 ####[facility] [address] [place], [address] PTHINon 07-24-2024 PTH 1027.8 pg/mL High 18.4-80.1 [facility] Comment on above: Performed By: #### L 501.9985, L506.1000, L100.0100, L500.4050, L509.1000, L3300.0960 ####[facility] [address] [place], [address] Phosphoruson 07-24-2024 Phosphate [Mass/Vol] 5.0 mg/dL High 2.5-4.9 [facility] Comment on above: Order Comment: Comme nts: May add to ED labsComments: add to ED labsComments: may add to ED labsmay add to ED labs Performed By: #### L 501.2300, L501.3620, L509.7000, L101.9900, L501.5200, L503.6550, L501.6710, L503.6030, L504.2610, L503.6620, L300.8000 ####[facility] [address] [place], [address] Procalcitoninon 07-24-2024 Procalcitonin 0.11 ng/mL High 0.00-0.09 [facility] Comment on above: Result Comment: A [...] ng/mL are obtained. Performed By: #### L 501.2300, L501.3620, L509.7000, L101.9900, L501.5200, L503.6550, L501.6710, L503.6030, L504.2610, L503.6620, L300.8000 ####[facility] [address] [facility] [place], [place], [id number] Stool Occult Blood iFOBon STOB Positive Normal [facility] Comment on above: Performed By: #### M 100.7900 ####[facility] [address] [facility]. [place], [place], [phone] Type AND Screenon 07-24-2024 Ab SCREEN GEL TNP Normal [facility] Comment on above: Order Comment: CMV N EG? NNumber of units to transfuse: 1Is pt's Hgb is = to 7.0 mg/dl or Hct </= 21%? YReason for Ordering Blood: ChronicAre the blood/blood products to be transfused? YIs the patient having/had surgery? NHas pt arrived? YWhen ReadyNY Result Comment: AMENDED REPORT 07/24/24 0141: Antibody Screen previously reported as:NEGATIVE Performed By: #### B RC, BTS, [id number] ####[facility] [address] [facility] [place], [place], [phone] Urinalysis, Completeon 07-24 BACTERIA 1+ /hpf Normal None Seen [facility] Comment on above: Order Comment: CLEAN CATCH Performed By: #### L 400.0001 ####[facility] [address] [place], [address] WBC 0-5 SEEN Normal 0-5 [facility] Comment on above: Order Comment: CLEAN CATCH Performed By: #### L 400.0001 ####[facility] [address] [place], [address] Urine Sodiumon 07-24-2024 Sodium (U) [Moles/Vol] 23 mmol/L Normal Not Establ. [facility] Comment on above: Performed By: #### L 501.5500, L501.1200 ####[facility] [address] [place], [address] Vitamin D,25 Hydroxyon 07-24 Vitamin D 25-OH 11.5 ng/mL Normal [facility] Comment on above: Result Comment: Greta min D 25(OH) Status Range Deficiency <20 ng/mL (50nmol/L) Insufficiency 20 - 30 ng/mL (50 - 75 nmol/L) Sufficiency 30 - 100 ng/mL (75 - 250 nmol/L) Toxicity >100 ng/mL (>250 nmol/L) Performed By: #### L 501.9985, L506.1000, L100.0100, L500.4050, L509.1000, L3300.0960 ####[facility] [address] [place], [address] 12 Lead EKGon 07-23-2024 12 Lead EKG Normal [facility] BRCon 07-23-2024 RC Normal [facility] Comment on above: Result Comment: [id number] OP RC TRANSFUSED 07/26/24 [id number] OP RC TRANSFUSED 07/26/24 0424 Performed By: #### B RC ####[facility] [address] [place], [address] Result Comment: [id number] OP RC TRANSFUSED 07/24/24 0306 Performed By: #### B SATHYA, BTS, [id number] ####[facility] [address] [place], [address] Basic Metabolic Profile (BMP )on 07-23-2024 BUN/CRE 12.0 RATIO Normal 10-20 [facility] Comment on above: Order Comment: 'TROP ' Serial specimen #1, #2 or #3: 1 Performed By: #### L 100.0100, L500.2500, L501.4020 ####[facility] [address] [place], [address] CA,Total 5.4 mg/dL Invalid Interpretation Code 8.5-10.1 [facility] Comment on above: Order Comment: 'TROP ' Serial specimen #1, #2 or #3: 1 Result Comment: Crit ical Result(s) Called at: 23:18:14 07/23/2024 by:Ana Rosa Andrew to parr. Results read back by same. Performed By: #### L 100.0100, L500.2500, L501.4020 ####[facility] [address] [place], [address] Chloride [Moles/Vol] 101 mmol/L Normal 98-107 [facility] Comment on above: Order Comment: 'TROP ' Serial specimen #1, #2 or #3: 1 Performed By: #### L 100.0100, L500.2500, L501.4020 ####[facility] [address] [place], [address] CO2 [Moles/Vol] 29.0 mmol/L Normal 21.0-32.0 [facility] Comment on above: Order Comment: 'TROP ' Serial specimen #1, #2 or #3: 1 Performed By: #### L 100.0100, L500.2500, L501.4020 ####[facility] [address] [place], [address] Creatinine [Mass/Vol] 3.66 mg/dL High 0.55-1.02 [facility] Comment on above: Order Comment: 'TROP ' Serial specimen #1, #2 or #3: 1 Result Comment: The validity of the calculated GFR GFRAA in patients over70 years has not been determined. Clinical correlation isessential. Performed By: #### L 100.0100, L500.2500, L501.4020 ####[facility] [address] [place], [address] EST GFR - AA 16 mL/min Low >60 [facility] Comment on above: Order Comment: 'TROP ' Serial specimen #1, #2 or #3: 1 Result Comment: Afri can [place] GFR Calc Performed By: #### L 100.0100, L500.2500, L501.4020 ####[facility] [address] [place], [address] GAP 4 Low 5-15 [facility] Comment on above: Order Comment: 'TROP ' Serial specimen #1, #2 or #3: 1 Performed By: #### L 100.0100, L500.2500, L501.4020 ####[facility] [address] [place], [address] GFR/1.73 sq M.predicted among non-blacks MDRD (S/P/Bld) [Vol rate/Area] 13 mL/min/{1.73_m2} Low >60 [facility] Comment on above: Order Comment: 'TROP ' Serial specimen #1, #2 or #3: 1 Result Comment: Non- GFR Calc Performed By: #### L 100.0100, L500.2500, L501.4020 ####[facility] [address] [place], [address] Glucose [Mass/Vol] 146 mg/dL High 74-106 [facility] Comment on above: Order Comment: 'TROP ' Serial specimen #1, #2 or #3: 1 Result Comment: Fast ing Glucose result greater than or equal to 126 mg/dLsuggests DIABETES MELLITUS per A.D.A. criteria. Performed By: #### L 100.0100, L500.2500, L501.4020 ####[facility] [address] [place], [address] Potassium [Moles/Vol] 5.4 mmol/L High 3.5-5.1 [facility] Comment on above: Order Comment: 'TROP ' Serial specimen #1, #2 or #3: 1 Performed By: #### L 100.0100, L500.2500, L501.4020 ####[facility] [address] [place], [address] Sodium [Moles/Vol] 134 mmol/L Low 136-145 [facility] Comment on above: Order Comment: 'TROP ' Serial specimen #1, #2 or #3: 1 Performed By: #### L 100.0100, L500.2500, L501.4020 ####[facility] [address] [place], [address] Urea nitrogen [Mass/Vol] 44 mg/dL High 7-18 [facility] Comment on above: Order Comment: 'TROP ' Serial specimen #1, #2 or #3: 1 Performed By: #### L 100.0100, L500.2500, L501.4020 ####[facility] [address] [place], [address] Bedside Glucoseon 07-23-2024 FINGERSTICK GLU 120 mg/dL High 74-106 [facility] Comment on above: Result Comment: SHELLY GEMENT OF PATIENT CARE PER NURSING PROTOCOL Performed By: #### L 501.080 ####[facility] [address] [place], [address] FINGERSTICK GLU 163 mg/dL High 74-106 [facility] Comment on above: Result Comment: SHELLY GEMENT OF PATIENT CARE PER NURSING PROTOCOL Performed By: #### L 501.080 ####[facility] [address] [place], [address] CBC W/Diff, Automatedon 09- 0-2023 Absolute Lymph 1.37 X10 3/uL Normal 0.83-4.51 [facility] Comment on above: Performed By: #### L 100.0100, L500.2500, L501.4020 ####[facility] [address] [place], [address] Absolute Neut 4.2 X10 3/uL Normal 2.0-7.7 [facility] Comment on above: Performed By: #### L 100.0100, L500.2500, L501.4020 ####[facility] [address] [place], [address] Basophils/100 WBC (Bld) 0.5 % Normal 0-1 [facility] Comment on above: Performed By: #### L 100.0100, L500.2500, L501.4020 ####[facility] [address] [place], [address] Eosinophils/100 WBC (Bld) 4.6 % Normal 0-5 [facility] Comment on above: Performed By: #### L 100.0100, L500.2500, L501.4020 ####[facility] [address] [place], [address] Erythrocyte distribution width (RBC) [Ratio] 13.5 % Normal 11.6-14.6 [facility] Comment on above: Performed By: #### L 100.0100, L500.2500, L501.4020 ####[facility] [address] [place], [address] Hematocrit (Bld) [Volume fraction] 24.0 % Low 37-47 [facility] Comment on above: Performed By: #### L 100.0100, L500.2500, L501.4020 ####[facility] [address] [place], [address] Hemoglobin (Bld) [Mass/Vol] 7.0 g/dL Low 12.0-15.0 [facility] Comment on above: Performed By: #### L 100.0100, L500.2500, L501.4020 ####[facility] [address] [place], [address] IG% 0.600 Normal 0.0-0.9 [facility] Comment on above: Result Comment: IG% - Immature Granulocytes (promyelocytes, myelocytes andmetamyelocytes) > 1% indicates that a LEFT SHIFT is Present. Performed By: #### L 100.0100, L500.2500, L501.4020 ####[facility] [address] [place], [address] Lymphocytes/100 WBC (Bld) 21.1 % Normal 19-41 [facility] Comment on above: Performed By: #### L 100.0100, L500.2500, L501.4020 ####[facility] [address] [place], [address] MCH (RBC) [Entitic mass] 28.3 pg Normal 27.0-32.0 [facility] Comment on above: Performed By: #### L 100.0100, L500.2500, L501.4020 ####[facility] [address] [place], [address] MCHC (RBC) [Mass/Vol] 29.2 g/dL Low 32-36 [facility] Comment on above: Performed By: #### L 100.0100, L500.2500, L501.4020 ####[facility] [address] [place], [address] MCV (RBC) [Entitic vol] 97.2 fL Normal 81-99 [facility] Comment on above: Performed By: #### L 100.0100, L500.2500, L501.4020 ####[facility] [address] [place], [address] Monocytes/100 WBC (Bld) 7.7 % Normal 0-10 [facility] Comment on above: Performed By: #### L 100.0100, L500.2500, L501.4020 ####[facility] [address] [place], [address] Neutrophils/100 WBC (Bld) 65.5 % Normal 47-70 [facility] Comment on above: Performed By: #### L 100.0100, L500.2500, L501.4020 ####[facility] [address] [place], [address] Nucleated RBC (Bld) [#/Vol] 0 10*3/uL Normal 0-5 [facility] Comment on above: Performed By: #### L 100.0100, L500.2500, L501.4020 ####[facility] [address] [place], [address] Platelet mean volume (Bld) [Entitic vol] 10.2 fL Normal 6.2-12.0 [facility] Comment on above: Performed By: #### L 100.0100, L500.2500, L501.4020 ####[facility] [address] [place], [address] Platelets (Bld) [#/Vol] 182 10*3/uL Normal 150-450 [facility] Comment on above: Performed By: #### L 100.0100, L500.2500, L501.4020 ####[facility] [address] [place], [address] RBC (Bld) [#/Vol] 2.47 10*6/uL Low 4.2-5.4 [facility] Comment on above: Performed By: #### L 100.0100, L500.2500, L501.4020 ####[facility] [address] [place], [address] RDW SD 48.6 fl High 35.1-43.9 [facility] Comment on above: Performed By: #### L 100.0100, L500.2500, L501.4020 ####[facility] [address] [place], [address] WBC (Bld) [#/Vol] 6.5 10*3/uL Normal 4.4-11.0 [facility] Comment on above: Performed By: #### L 100.0100, L500.2500, L501.4020 ####[facility] [address] [place], [address] Chest PA and Lateralon 07-23 Chest PA and Lateral Normal [facility] Emergency Department Summary on 07-23-2024 Emergency Department Summary Normal [facility] H AND P Exam - Hospitaliston 07-23-2024 H&P Exam - Hospitalist Normal [facility] L501.4020on 07-23-2024 TROPONIN-I HS 30 pg/mL Normal 3.0-54.0 [facility] Comment on above: Order Comment: 'TROP ' Serial specimen #1, #2 or #3: 1 Result Comment: Plea se Note: New Test Units and Gender Specific Reference Ranges. For more information see Policy Stat Procedure Leggett High Sensitivity Troponin (TNIH) and attachments. Performed By: #### L 100.0100, L500.2500, L501.4020 ####[facility] [address] [place], [address] Urinalysis, Completeon 07-23 EPI,SQUAMOUS 0 SEEN Normal 5-10 [facility] Comment on above: Order Comment: CLEAN CATCH Performed By: #### L 400.0001 ####[facility] [address] [place], [address] Mucus Ql (Urine sed) 0 SEEN Normal [facility] Comment on above: Order Comment: CLEAN CATCH Performed By: #### L 400.0001 ####[facility] [address] [place], [address] RBC 0 SEEN Normal 0-5 [facility] Comment on above: Order Comment: CLEAN CATCH Performed By: #### L 400.0001 ####[facility] [address] [place], [place], [address] Office Visit Reporton 2023 Office Visit Report Normal [facility] Dexa Bone Density Studyon Dexa Bone Density Study Normal [facility] Basophil percentageOrdered B y: Christy Huerta on 01-15-2024 Basophil percentage 3.7 mg/dL 2.5-4.9 [facility] Bilirubin [Mass/Vol] 0.50 mg/dL 0.20-1.00 [facility] Comment on above: For patients on eltr ombopag therapy, use of Dimension [place] TBIL is not recommended. Chloride [Moles/Vol] 105 mmol/L 98-107 [facility] Cholesterol [Mass/Vol] 145 mg/dL <200 [facility] Comment on above: <200 mg/dL Desirable 200-240 mg/dL Borderline >240 mg/dL High Risk Glucose [Mass/Vol] 180 mg/dL 74-106 [facility] Comment on above: Fasting Glucose resu lt greater than or equal to 126 mg/dL suggests DIABETES MELLITUS per A.D.A. criteria. Hemoglobin (Bld) [Mass/Vol] 11.4 g/dL 12.0-15.0 [facility] Potassium [Moles/Vol] 4.8 mmol/L 3.5-5.1 [facility] Protein [Mass/Vol] 6.8 g/dL 6.4-8.2 [facility] Sodium [Moles/Vol] 140 mmol/L 136-145 [facility] Triglyceride [Mass/Vol] 132 mg/dL <199 [facility] Comment on above: The drugs N-Acetylcy steine and Metamizole may falsely depress this assay.Serum Triglycerides Reference Interval Normal <150 mg/dL Borderline high 150 - 199 mg/dL High 200 - 499 mg/dL Very High > or = 500 mg/dL WBC (Bld) [#/Vol] 6.9 10*3/uL 4.4-11.0 [facility] Determination of erythrocyte mean corpuscular volume (MCV)Ordered By: Christy Huerta on 01-15-2024 MCV (RBC) [Entitic vol] 95.9 fL 81-99 [facility] Direct bilirubinOrdered By: Christy Huerta on 01-15-2024 Bilirubin.direct [Mass/Vol] 0.10 mg/dL 0.00-0.30 [facility] Erythrocyte distribution wid th ratioOrdered By: Christy Huerta on 01-15-2024 Erythrocyte distribution width (RBC) [Ratio] 12.3 % 11.6-14.6 [facility] Erythrocyte distribution wid th standard deviationOrdered By: Christy Lee on 01-15-2024 Erythrocyte distribution width (RBC) [Entitic vol] 43.2 fL 35.1-43.9 [facility] Hematocrit Auto (Bld) [Volum e fraction]Ordered By: Christy Huerta on 01-15-2024 Hematocrit (Bld) [Volume fraction] 37.6 % 37-47 [facility] Laboratory - Chemistry and C hemistry - challengeOrdered By: Christy Huerta on 01-15-2024 Albumin/Globulin [Mass ratio] 0.9 {ratio} 0.9-2.4 [facility] ALP [Catalytic activity/Vol] 82 U/L 45-117 [facility] ALT [Catalytic activity/Vol] 14 U/L 13-56 [facility] Cholesterol in HDL [Mass/Vol] 59 mg/dL >40 [facility] Comment on above: The drugs N-Acetylcy steine and Metamizole may falsely depress this assay. Reference Range HDL <40 mg/dL Low HDL Cholesterol HDL >or= 60 mg/dL High HDL Cholesterol Cholesterol in LDL [Mass/Vol] 60 mg/dL 0-130 [facility] CO2 [Moles/Vol] 31.0 mmol/L 21.0-32.0 [facility] Cobalamin (Vitamin B12) [Mass/Vol] 753 pg/mL 211-911 [facility] Globulin (S) [Mass/Vol] 3.5 g/dL 2.2-4.2 [facility] Urea nitrogen/Creatinine [Mass ratio] 11.8 mg/mg 10-20 [facility] - Hematology and Cell countsOrdered By: Christy Huerta on 01-15-2024 MCH (RBC) [Entitic mass] 29.1 pg 27.0-32.0 [facility] MCHC (RBC) [Mass/Vol] 30.3 g/dL 32-36 [facility] Platelet mean volume (Bld) [Entitic vol] 10.6 fL 6.2-12.0 [facility] Platelets (Bld) [#/Vol] 188 10*3/uL 150-450 [facility] No Panel InformationOrdered By: Christy Huerta on 01-15-2024 Estimated GFR (MDRD) Amer 22 mL/min >60 [facility] Comment on above: GFR Calc Estimated GFR (MDRD) Non-Af Amer 18 mL/min >60 [facility] Comment on above: Non- GFR Calc Parathyroid Hormone (Intact) 137.2 pg/mL 18.4-80.1 [facility] VLDL Cholesterol 26 mg/dL 5-40 [facility] RBC Auto (Bld) [#/Vol]Ordere d By: Christy Huerta on 01-15-2024 RBC (Bld) [#/Vol] 3.92 10*6/uL 4.2-5.4 [facility] Serum or plasma calcium lesly urement (mass/volume)Ordered By: Christy Huerta on 01-15-2024 Calcium [Mass/Vol] 9.1 mg/dL 8.5-10.1 [facility] Serum or plasma creatinine m easurement (mass/volume)Ordered By: Christy Huerta on 01-15-2024 Creatinine [Mass/Vol] 2.79 mg/dL 0.55-1.02 [facility] Comment on above: The validity of the calculated GFR & GFRAA in patients over 70 years has not been determined. Clinical correlation is essential. Serum or plasma thyroid stim ulating hormone (TSH) measurement (units/volume)Ordered By: Christy Huerta on 01-15-2024 TSH Qn 2.34 uIU/mL 0.358-3.74 [facility] Serum or plasma urea nitroge n measurement (mass/volume)Ordered By: Christy Huerta on 01-15-2024 Urea nitrogen [Mass/Vol] 33 mg/dL 7-18 [facility] Thin prep Papanicolaou smear with manual screeningOrdered By: Christy Huerta on 01-15-2024 Thin prep Papanicolaou smear with manual screening 3.3 g/dL 3.2-5.0 [facility] Thin prep Papanicolaou smear with manual screening 16 U/L 15-37 [facility] Thin prep Papanicolaou smear with manual screening 4 5-15 [facility] Laboratory - Hematology and Cell countson 12-03-2023 HbA1c (Bld) [Mass fraction] 8.6 % 4.2-6.3 [facility] Basophil percentageOrdered B y: Christy Huerta on 11-18-2023 Basophil percentage 3.3 mg/dL 2.5-4.9 [facility] Chloride [Moles/Vol] 108 mmol/L 98-107 [facility] Glucose [Mass/Vol] 359 mg/dL 74-106 [facility] Comment on above: Glucose result great er than or equal to 200 mg/dLsuggests DIABETES MELLITUS per A.D.A. criteria. Potassium [Moles/Vol] 5.6 mmol/L 3.5-5.1 [facility] Sodium [Moles/Vol] 139 mmol/L 136-145 [facility] Laboratory - Chemistry and C hemistry - challengeOrdered By: Christy Huerta on 11-18-2023 CO2 [Moles/Vol] 27.0 mmol/L 21.0-32.0 [facility] Urea nitrogen/Creatinine [Mass ratio] 18.5 mg/mg 10-20 [facility] No Panel InformationOrdered By: Christy Huerta on 11-18-2023 Estimated GFR (MDRD) Amer 22 mL/min >60 [facility] Comment on above: GFR Calc Estimated GFR (MDRD) Non-Af Amer 19 mL/min >60 [facility] Comment on above: Non- GFR Calc Serum or plasma calcium lesly urement (mass/volume)Ordered By: Christy Huerta on 11-18-2023 Calcium [Mass/Vol] 8.8 mg/dL 8.5-10.1 [facility] Serum or plasma creatinine m easurement (mass/volume)Ordered By: Christy Huerta on 11-18-2023 Creatinine [Mass/Vol] 2.75 mg/dL 0.55-1.02 [facility] Comment on above: The validity of the calculated GFR & GFRAA in patients over 70 years has not been determined. Clinical correlation is essential. Serum or plasma urea nitroge n measurement (mass/volume)Ordered By: Christy Huerta on 11-18-2023 Urea nitrogen [Mass/Vol] 51 mg/dL 7-18 [facility] Thin prep Papanicolaou smear with manual screeningOrdered By: Christy Huerta on 11-18-2023 Thin prep Papanicolaou smear with manual screening 2.9 g/dL 3.2-5.0 [facility] Bacteria identified Respirat ory culture Nom (Unsp spec)Ordered By: Jeanna Davis on 10-29-2023 Respiratory Culture Pseudomonas aeruginosa [facility] Respiratory Culture Staphylococcus aureus [facility] Respiratory Culture Pseudomonas aeruginosa [facility] Respiratory Culture Staphylococcus aureus [facility] Gram stain for investigation of transfusion reactionOrdered By: Jeanna Davis on 10-29-2023 Microscopic observation Gram stain Nom (Unsp spec) [facility] Microscopic observation Gram stain Nom (Unsp spec) [facility] 24 hour urine protein measur ement (mass/time)Ordered By: Christy Huerta on 10-13-2023 Protein (24H U) [Mass/Time] 2213.8 mg/24HR 0-151 [facility] 24 hour urine protein measur ement (mass/volume)Ordered By: Christy Huerta on 10-13-2023 Protein (24H U) [Mass/Vol] 177.1 mg/dL 0.0-11.8 [facility] Creatinine clearanceOrdered By: Christy Huerta on 10-13-2023 Creatinine renal clearance Unsp time (U+S/P) [Vol/Time] 21 ml/min 100-200 [facility] Culture, urineOrdered By: Aashish Huerta on 10-13-2023 Bacteria identified Cx Nom (U) Culture exhibits no growth. [facility] Bacteria identified Cx Nom (U) Culture exhibits no growth. [facility] Laboratory - Specimen inform ationOrdered By: Christy Huerta on 10-13-2023 Collection duration (U) 24.0 HOURS 24.0-24.0 [facility] Comment on above: *Additional results available. Contact laboratory/see report* No Panel InformationOrdered By: Christy Huerta on 10-13-2023 Estimated GFR (MDRD) Amer 25 mL/min >60 [facility] Comment on above: GFR Calc Estimated GFR (MDRD) Non-Af Amer 21 mL/min >60 [facility] Comment on above: Non- GFR Calc Timed Urine Volume 1250 mL [facility] Comment on above: *Additional results available. Contact laboratory/see report* Thin prep Papanicolaou smear with manual screeningOrdered By: Christy Huerta on 10-13-2023 Creatinine (U) [Mass/Vol] 2.5 mg/dL 0.6-1.0 [facility] Urine creatinine measurement (mass/volume)Ordered By: Christy Huerta on 10-13-2023 Creatinine (U) [Mass/Vol] 61.4 mg/dL NO RANGE EST. [facility] Basophil percentageOrdered B y: Christy Huerta on 10-09-2023 Basophil percentage 10-25 SEEN /hpf 0-5 [facility] Bilirubin Test strip Ql (U)O rdered By: Christy Huerta on 10-09-2023 Bilirubin Ql (U) Negative Negative [facility] Ketones Test strip Ql (U)Ord ered By: Christy Huerta on 10-09-2023 Ketones Ql (U) Negative Negative [facility] Mucus LM Ql (Urine sed)Order ed By: Christy Huerta on 10-09-2023 Mucus Ql (Urine sed) 0 SEEN /hpf [facility] Nitrite Test strip Ql (U)Ord ered By: Christy Huerta on 10-09-2023 Nitrite Ql (U) Negative Negative [facility] Protein Test strip Ql (U)Ord ered By: Christy Huerta on 10-09-2023 Protein Ql (U) 100 mg/dl Negative [facility] Squamous epithelial cells de tection in urine sediment by light microscopyOrdered By: Christy Huerta on 10-09-2023 Epithelial cells.squamous LM Ql (Urine sed) 0-5 SEEN /hpf 5-10 [facility] Urine blood detectionOrdered By: Christy Huerta on 10-09-2023 RBC Ql (U) 10 /ul Negative [facility] RBC Ql (U) 0-5 SEEN /hpf 0-5 [facility] Urine clarityOrdered By: Malcolm Huerta on 10-09-2023 Clarity (U) Sl. Cloudy Clear [facility] Urine color determinationOrd ered By: Christy Huerta on 10-09-2023 Color (U) Yellow Yellow [facility] Urine glucose detectionOrder ed By: Christy Huerta on 10-09-2023 Glucose Ql (U) 250 mg/dl Normal [facility] Urine leukocyte esterase det ection by dipstickOrdered By: Christy Huerta on 10-09-2023 Leukocyte esterase Test strip Ql (U) 100 /ul Negative [facility] Urine pHOrdered By: Mary Huerta on 10-09-2023 pH (U) 5.0 [pH] 5.0 - 8.0 [facility] Urine sediment bacteria coun t by microscopy (number/high power field)Ordered By: Christy uHerta on 10-09-2023 Bacteria LM.HPF (Urine sed) [#/Area] 0 /[HPF] None Seen [facility] Urine specific gravity measu rementOrdered By: Christy Huerta on 10-09-2023 Specific gravity (U) [Rel density] 1.015 1.002-1.030 [facility] Urobilinogen Auto test strip Ql (U)Ordered By: Christy Huerta on 10-09-2023 Urobilinogen Ql (U) Normal mg/dl Normal [facility] Basophil percentageOrdered B y: Christy Huerta on 10-06-2023 Basophil percentage 2.9 mg/dL 2.5-4.9 [facility] Chloride [Moles/Vol] 104 mmol/L 98-107 [facility] Glucose [Mass/Vol] 273 mg/dL 74-106 [facility] Comment on above: Glucose result great er than or equal to 200 mg/dLsuggests DIABETES MELLITUS per A.D.A. criteria. Potassium [Moles/Vol] 4.8 mmol/L 3.5-5.1 [facility] Sodium [Moles/Vol] 139 mmol/L 136-145 [facility] WBC (Bld) [#/Vol] 10.3 10*3/uL 4.4-11.0 [facility] Blood erythrocytes count (nu mber/volume)Ordered By: Christy Huerta on 10-06-2023 RBC (Bld) [#/Vol] 3.48 10*6/uL 4.2-5.4 [facility] Blood hemoglobin measurement (mass/volume)Ordered By: Christy Huerta on 10-06-2023 Hemoglobin (Bld) [Mass/Vol] 10.5 g/dL 12.0-15.0 [facility] Blood platelet mean volumeOr dered By: Christy Huerta on 10-06-2023 Platelet mean volume (Bld) [Entitic vol] 10.5 fL 6.2-12.0 [facility] Determination of erythrocyte mean corpuscular volume (MCV)Ordered By: Christy Huerta on 10-06-2023 MCV (RBC) [Entitic vol] 99.1 fL 81-99 [facility] Hematocrit Auto (Bld) [Volum e fraction]Ordered By: Christy Huerta on 10-06-2023 Hematocrit (Bld) [Volume fraction] 34.5 % 37-47 [facility] Laboratory - Chemistry and C hemistry - challengeOrdered By: Christy Huerta on 10-06-2023 CO2 [Moles/Vol] 30.0 mmol/L 21.0-32.0 [facility] Urea nitrogen/Creatinine [Mass ratio] 13.7 mg/mg 10-20 [facility] - Hematology and Cell countsOrdered By: Christy Huerta on 10-06-2023 Erythrocyte distribution width (RBC) [Entitic vol] 45.4 fL 35.1-43.9 [facility] Erythrocyte distribution width (RBC) [Ratio] 12.6 % 11.6-14.6 [facility] MCH (RBC) [Entitic mass] 30.2 pg 27.0-32.0 [facility] MCHC Auto (RBC) [Mass/Vol]Or dered By: Christy Huerta on 10-06-2023 MCHC (RBC) [Mass/Vol] 30.4 g/dL 32-36 [facility] No Panel InformationOrdered By: Christy Huerta on 10-06-2023 Estimated GFR (MDRD) Amer 26 mL/min >60 [facility] Comment on above: GFR Calc Estimated GFR (MDRD) Non-Af Amer 22 mL/min >60 [facility] Comment on above: Non- GFR Calc Parathyroid Hormone (Intact) 53.6 pg/mL 18.4-80.1 [facility] Platelets bldOrdered By: Malcolm tania Bradley on 10-06-2023 Platelets (Bld) [#/Vol] 180 10*3/uL 150-450 [facility] Serum or plasma albumin lesly urement (mass/volume)Ordered By: Christy Huerta on 10-06-2023 Albumin [Mass/Vol] 2.9 g/dL 3.2-5.0 [facility] Serum or plasma calcium lesly urement (mass/volume)Ordered By: Christy Huerta on 10-06-2023 Calcium [Mass/Vol] 9.1 mg/dL 8.5-10.1 [facility] Serum or plasma creatinine m easurement (mass/volume)Ordered By: Christy Huerta on 10-06-2023 Creatinine [Mass/Vol] 2.41 mg/dL 0.55-1.02 [facility] Comment on above: The validity of the calculated GFR & GFRAA in patients over 70 years has not been determined. Clinical correlation is essential. Serum or plasma urea nitroge n measurement (mass/volume)Ordered By: Christy Huerta on 10-06-2023 Urea nitrogen [Mass/Vol] 33 mg/dL 7-18 [facility] Urine creatinine measurement (mass/volume)Ordered By: Christy Huerta on 10-06-2023 Creatinine (U) [Mass/Vol] 65.00 mg/dL NO RANGE EST. [facility] Urine protein measurement (m ass/volume)Ordered By: Christy Huerta on 10-06-2023 Protein (U) [Mass/Vol] 229.6 mg/dL 0.0-11.8 [facility] Urine protein/creatinine mas s ratioOrdered By: Christy Huerta on 10-06-2023 Protein/Creatinine (U) [Mass ratio] 3532 mg/g CRE 0-200 [facility] Laboratory - Hematology and Cell countson 07-14-2023 HbA1c (Bld) [Mass fraction] 8.7 % 4.2-6.3 [facility] Basophil percentageOrdered B y: Christy Huerta on 06-19-2023 Basophil percentage 3.3 mg/dL 2.5-4.9 [facility] Chloride [Moles/Vol] 107 mmol/L 98-107 [facility] Glucose [Mass/Vol] 251 mg/dL 74-106 [facility] Comment on above: Glucose result great er than or equal to 200 mg/dLsuggests DIABETES MELLITUS per A.D.A. criteria. Potassium [Moles/Vol] 5.4 mmol/L 3.5-5.1 [facility] Sodium [Moles/Vol] 140 mmol/L 136-145 [facility] - Chemistry and C hemistry - challengeOrdered By: Christy Huerta on 06-19-2023 CO2 [Moles/Vol] 32.0 mmol/L 21.0-32.0 [facility] Urea nitrogen/Creatinine [Mass ratio] 14.5 mg/mg 10-20 [facility] No Panel InformationOrdered By: Christy Huerta on 06-19-2023 Estimated GFR (MDRD) Amer 27 mL/min >60 [facility] Comment on above: GFR Calc Estimated GFR (MDRD) Non-Af Amer 22 mL/min >60 [facility] Comment on above: Non- GFR Calc Parathyroid Hormone (Intact) 118.0 pg/mL 18.4-80.1 [facility] Serum or plasma albumin lesly urement (mass/volume)Ordered By: Christy Huerta on 06-19-2023 Albumin [Mass/Vol] 3.0 g/dL 3.2-5.0 [facility] Serum or plasma calcium lesly urement (mass/volume)Ordered By: Christy Huerta on 06-19-2023 Calcium [Mass/Vol] 8.4 mg/dL 8.5-10.1 [facility] Serum or plasma creatinine m easurement (mass/volume)Ordered By: Christy Huerta on 06-19-2023 Creatinine [Mass/Vol] 2.34 mg/dL 0.55-1.02 [facility] Comment on above: The validity of the calculated GFR & GFRAA in patients over 70 years has not been determined. Clinical correlation is essential. Serum or plasma urea nitroge n measurement (mass/volume)Ordered By: Christy Huerta on 06-19-2023 Urea nitrogen [Mass/Vol] 34 mg/dL 7-18 [facility] Urine creatinine measurement (mass/volume)Ordered By: Christy Huerta on 06-19-2023 Creatinine (U) [Mass/Vol] 85.10 mg/dL NO RANGE EST. [facility] Urine protein measurement (m ass/volume)Ordered By: Christy Huerta on 06-19-2023 Protein (U) [Mass/Vol] 247.0 mg/dL 0.0-11.8 [facility] Urine protein/creatinine mas s ratioOrdered By: Christy Huerta on 06-19-2023 Protein/Creatinine (U) [Mass ratio] 2902 mg/g CRE 0-200 [facility] Basophil percentageOrdered B y: Sin Lujan on 03-17-2023 Basophil percentage 3.4 mg/dL 2.5-4.9 [facility] Chloride [Moles/Vol] 100 mmol/L 98-107 [facility] Glucose [Mass/Vol] 151 mg/dL 74-106 [facility] Comment on above: Fasting Glucose resu lt greater than or equal to 126 mg/dL suggests DIABETES MELLITUS per A.D.A. criteria. Potassium [Moles/Vol] 5.1 mmol/L 3.5-5.1 [facility] Sodium [Moles/Vol] 137 mmol/L 136-145 [facility] Laboratory - Chemistry and C hemistry - challengeOrdered By: Sin Lujan on 03-17-2023 CO2 [Moles/Vol] 32.0 mmol/L 21.0-32.0 [facility] Magnesium [Mass/Vol] 2.5 mg/dL 1.6-2.6 [facility] Urea nitrogen/Creatinine [Mass ratio] 16.1 mg/mg 10-20 [facility] No Panel InformationOrdered By: Sin Lujan on 03-17-2023 Estimated GFR (MDRD) Amer 24 mL/min >60 [facility] Comment on above: GFR Calc Estimated GFR (MDRD) Non-Af Amer 20 mL/min >60 [facility] Comment on above: Non- GFR Calc Parathyroid Hormone (Intact) 39.8 pg/mL 18.4-80.1 [facility] Serum or plasma albumin lesly urement (mass/volume)Ordered By: Sin Lujan on 03-17-2023 Albumin [Mass/Vol] 3.3 g/dL 3.2-5.0 [facility] Serum or plasma calcium lesly urement (mass/volume)Ordered By: Sin Ljuan on 03-17-2023 Calcium [Mass/Vol] 9.6 mg/dL 8.5-10.1 [facility] Serum or plasma creatinine m easurement (mass/volume)Ordered By: Sin Lujan on 03-17-2023 Creatinine [Mass/Vol] 2.61 mg/dL 0.55-1.02 [facility] Comment on above: The validity of the calculated GFR & GFRAA in patients over 70 years has not been determined. Clinical correlation is essential. Serum or plasma urea nitroge n measurement (mass/volume)Ordered By: Sin Lujan on 03-17-2023 Urea nitrogen [Mass/Vol] 42 mg/dL 7-18 [facility] Urine creatinine measurement (mass/volume)Ordered By: Sin Lujan on 03-17-2023 Creatinine (U) [Mass/Vol] 29.80 mg/dL NO RANGE EST. [facility] Urine protein measurement (m ass/volume)Ordered By: Sin Lujan on 03-17-2023 Protein (U) [Mass/Vol] 75.7 mg/dL 0.0-11.8 [facility] Urine protein/creatinine mas s ratioOrdered By: Sin Lujan on 03-17-2023 Protein/Creatinine (U) [Mass ratio] 2540 mg/g CRE 0-200 [facility] Basophil percentageOrdered B y: Dr. Lujan on 02-26-2023 Basophil percentage 4.1 mg/dL 2.5-4.9 [facility] Bilirubin [Mass/Vol] 0.40 mg/dL 0.20-1.00 [facility] Comment on above: For patients on eltr ombopag therapy, use of Dimension [place] TBIL is not recommended. Chloride [Moles/Vol] 105 mmol/L 98-107 [facility] Glucose [Mass/Vol] 270 mg/dL 74-106 [facility] Comment on above: Glucose result great er than or equal to 200 mg/dLsuggests DIABETES MELLITUS per A.D.A. criteria. Potassium [Moles/Vol] 5.0 mmol/L 3.5-5.1 [facility] Protein [Mass/Vol] 6.9 g/dL 6.4-8.2 [facility] Sodium [Moles/Vol] 134 mmol/L 136-145 [facility] WBC (Bld) [#/Vol] 5.6 10*3/uL 4.4-11.0 [facility] Blood erythrocytes count (nu mber/volume)Ordered By: Dr. Lujan on 02-26-2023 RBC (Bld) [#/Vol] 4.10 10*6/uL 4.2-5.4 [facility] Blood hemoglobin measurement (mass/volume)Ordered By: Dr. Lujan on 02-26-2023 Hemoglobin (Bld) [Mass/Vol] 12.1 g/dL 12.0-15.0 [facility] Blood platelet mean volumeOr dered By: Dr. Lujan on 02-26-2023 Platelet mean volume (Bld) [Entitic vol] 10.2 fL 6.2-12.0 [facility] Determination of erythrocyte mean corpuscular volume (MCV)Ordered By: Dr. Lujan on 02-26-2023 MCV (RBC) [Entitic vol] 95.9 fL 81-99 [facility] Hematocrit Auto (Bld) [Volum e fraction]Ordered By: Dr. Lujan on 02-26-2023 Hematocrit (Bld) [Volume fraction] 39.3 % 37-47 [facility] Laboratory - Chemistry and C hemistry - challengeOrdered By: Dr. Lujan on 02-26-2023 ALP [Catalytic activity/Vol] 88 U/L 45-117 [facility] ALT [Catalytic activity/Vol] 16 U/L 13-56 [facility] CO2 [Moles/Vol] 26.0 mmol/L 21.0-32.0 [facility] Globulin (S) [Mass/Vol] 3.8 g/dL 2.2-4.2 [facility] Urea nitrogen/Creatinine [Mass ratio] 17.7 mg/mg 10-20 [facility] Laboratory - Hematology and Cell countsOrdered By: Dr. Lujan on 02-26-2023 Erythrocyte distribution width (RBC) [Entitic vol] 49.3 fL 35.1-43.9 [facility] Erythrocyte distribution width (RBC) [Ratio] 14.0 % 11.6-14.6 [facility] MCH (RBC) [Entitic mass] 29.5 pg 27.0-32.0 [facility] MCHC Auto (RBC) [Mass/Vol]Or dered By: Dr. Lujan on 02-26-2023 MCHC (RBC) [Mass/Vol] 30.8 g/dL 32-36 [facility] No Panel InformationOrdered By: Dr. Lujan on 02-26-2023 Estimated GFR (MDRD) Amer 29 mL/min >60 [facility] Comment on above: GFR Calc Estimated GFR (MDRD) Non-Af Amer 24 mL/min >60 [facility] Comment on above: Non- GFR Calc Thyroid Stimulating Hormone (TSH) 2.30 uIU/mL 0.358-3.74 [facility] Vitamin D 25-Hydroxy 54.6 ng/mL [facility] Comment on above: Vitamin D 25(OH) Sta tus Range Deficiency <20 ng/mL (50nmol/L) Insufficiency 20 - 30 ng/mL (50 - 75 nmol/L) Sufficiency 30 - 100 ng/mL (75 - 250 nmol/L) Toxicity >100 ng/mL (>250 nmol/L) No Panel InformationOrdered By: Dr. Huerta on 02-26-2023 Parathyroid Hormone (Intact) 110.4 pg/mL 18.4-80.1 [facility] Platelets bldOrdered By: Dr. Lujan on 02-26-2023 Platelets (Bld) [#/Vol] 217 10*3/uL 150-450 [facility] Serum or plasma albumin lesly urement (mass/volume)Ordered By: Dr. Lujan on 02-26-2023 Albumin [Mass/Vol] 3.1 g/dL 3.2-5.0 [facility] Serum or plasma albumin/glob ulin mass ratioOrdered By: Dr. Lujan on 02-26-2023 Albumin/Globulin [Mass ratio] 0.8 {ratio} 0.9-2.4 [facility] Serum or plasma calcium lesly urement (mass/volume)Ordered By: Dr. Lujan on 02-26-2023 Calcium [Mass/Vol] 8.7 mg/dL 8.5-10.1 [facility] Serum or plasma creatinine m easurement (mass/volume)Ordered By: Dr. Lujan on 02-26-2023 Creatinine [Mass/Vol] 2.20 mg/dL 0.55-1.02 [facility] Comment on above: The validity of the calculated GFR & GFRAA in patients over 70 years has not been determined. Clinical correlation is essential. Serum or plasma urea nitroge n measurement (mass/volume)Ordered By: Dr. Lujan on 02-26-2023 Urea nitrogen [Mass/Vol] 39 mg/dL 7-18 [facility] Thin prep Papanicolaou smear with manual screeningOrdered By: Dr. Lujan on 02-26-2023 Thin prep Papanicolaou smear with manual screening 15 U/L 15-37 [facility] Thin prep Papanicolaou smear with manual screening 3 5-15 [facility] - Hematology and Cell countson 01-01-2023 HbA1c (Bld) [Mass fraction] 9.0 % [facility] Absolute lymphocyte counton 10-11-2022 Lymphocytes Auto (Unsp spec) [#/Vol] 2.65 10*3/uL 0.83-4.51 [facility] Work Phone: Basophil percentageon 2021 Amylase [Catalytic activity/Vol] 51 U/L 25-115 [facility] Work Phone: Basophils/100 WBC (Bld) 1.2 % 0-1 [facility] Work Phone: Bilirubin [Mass/Vol] 0.30 mg/dL 0.20-1.00 [facility] Work Phone: Comment on above: For patients on eltr ombopag therapy, use of Dimension [place] TBIL is not recommended. Chloride [Moles/Vol] 101 mmol/L 98-107 [facility] Work Phone: Cholesterol [Mass/Vol] 266 mg/dL <200 [facility] Work Phone: Comment on above: <200 mg/dL Desirable 200-240 mg/dL Borderline >240 mg/dL High Risk Eosinophils/100 WBC (Bld) 8.5 % 0-5 [facility] Work Phone: Glucose [Mass/Vol] 206 mg/dL 74-106 [facility] Work Phone: Comment on above: Glucose result great er than or equal to 200 mg/dLsuggests DIABETES MELLITUS per A.D.A. criteria. Neutrophils (Bld) [#/Vol] 3.7 10*3/uL 2.0-7.7 [facility] Work Phone: Neutrophils/100 WBC (Bld) 49.0 % 47-70 [facility] Work Phone: Potassium [Moles/Vol] 4.2 mmol/L 3.5-5.1 [facility] Work Phone: Protein [Mass/Vol] 6.9 g/dL 6.4-8.2 [facility] Work Phone: Sodium [Moles/Vol] 138 mmol/L 136-145 [facility] Work Phone: Triglyceride [Mass/Vol] 198 mg/dL <199 [facility] Work Phone: Comment on above: The drugs N-Acetylcy steine and Metamizole may falsely depress this assay.Serum Triglycerides Reference Interval Normal <150 mg/dL Borderline high 150 - 199 mg/dL High 200 - 499 mg/dL Very High > or = 500 mg/dL WBC (Bld) [#/Vol] 7.5 10*3/uL 4.4-11.0 [facility] Work Phone: Blood erythrocytes count (nu mber/volume)on 10-11-2022 RBC (Bld) [#/Vol] 4.53 10*6/uL 4.2-5.4 [facility] Work Phone: Blood hemoglobin measurement (mass/volume)on 10-11-2022 Hemoglobin (Bld) [Mass/Vol] 13.4 g/dL 12.0-15.0 [facility] Work Phone: Blood lymphocytes/100 leukoc yteson 10-11-2022 Lymphocytes/100 WBC (Bld) 35.2 % 19-41 [facility] Work Phone: Blood monocytes/100 leukocyt eson 10-11-2022 Monocytes/100 WBC (Bld) 5.8 % 0-10 [facility] Work Phone: Blood platelet mean volumeon 10-11-2022 Platelet mean volume (Bld) [Entitic vol] 10.5 fL 6.2-12.0 [facility] Work Phone: Determination of erythrocyte mean corpuscular volume (MCV)on 10-11-2022 MCV (RBC) [Entitic vol] 96.9 fL 81-99 [facility] Work Phone: Erythrocyte sedimentation ra darek 10-11-2022 ESR (Bld) [Velocity] 38 mm/h 0-30 [facility] Work Phone: Hematocrit Auto (Bld) [Volum e fraction]on 10-11-2022 Hematocrit (Bld) [Volume fraction] 43.9 % 37-47 [facility] Work Phone: INR in Blood by Coagulation assayon 10-11-2022 INR Coag (Bld) [Relative time] 0.9 {INR} [facility] Work Phone: Iron measurement (mass/mass) on 10-11-2022 Iron (Unsp spec) [Mass/Mass] 67 ug/dL 50-170 [facility] Work Phone: Laboratory - Chemistry and C hemistry - challengeon 10-11-2022 ALP [Catalytic activity/Vol] 93 U/L 45-117 [facility] Work Phone: ALT [Catalytic activity/Vol] 11 U/L 13-56 [facility] Work Phone: CO2 [Moles/Vol] 30.0 mmol/L 21.0-32.0 [facility] Work Phone: Globulin (S) [Mass/Vol] 3.8 g/dL 2.2-4.2 [facility] Work Phone: Lipase [Catalytic activity/Vol] 82 U/L 73-393 [facility] Work Phone: Urea nitrogen/Creatinine [Mass ratio] 16.2 mg/mg 10-20 [facility] Work Phone: Laboratory - Coagulationon 1 12-12-2021 aPTT Coag (Bld) [Time] 29.2 s 24.1-36.2 [facility] Work Phone: PT Coag (PPP) [Time] 12.2 s 11.7-14.9 [facility] Work Phone: Laboratory - Hematology and Cell countson 10-11-2022 Erythrocyte distribution width (RBC) [Entitic vol] 48.3 fL 35.1-43.9 [facility] Work Phone: Erythrocyte distribution width (RBC) [Ratio] 13.4 % 11.6-14.6 [facility] Work Phone: Immature granulocytes/100 WBC (Bld) 0.300 % 0.0-0.9 [facility] Work Phone: Comment on above: IG% - Immature Granu locytes (promyelocytes, myelocytes and metamyelocytes) > 1% indicates that a LEFT SHIFT is Present. MCH (RBC) [Entitic mass] 29.6 pg 27.0-32.0 [facility] Work Phone: Nucleated RBC/100 WBC (Bld) [Ratio] 0 % 0-5 [facility] Work Phone: MCHC Auto (RBC) [Mass/Vol]on 10-11-2022 MCHC (RBC) [Mass/Vol] 30.5 g/dL 32-36 [facility] Work Phone: No Panel Informationon 10-11 Estimated GFR (MDRD) Amer 27 mL/min >60 [facility] Work Phone: Comment on above: GFR Calc Estimated GFR (MDRD) Non-Af Amer 22 mL/min >60 [facility] Work Phone: Comment on above: Non- GFR Calc Thyroid Stimulating Hormone (TSH) 1.67 uIU/mL 0.358-3.74 [facility] Work Phone: Vitamin D 25-Hydroxy 30.7 ng/mL [facility] Work Phone: Comment on above: Vitamin D 25(OH) Sta tus Range Deficiency <20 ng/mL (50nmol/L) Insufficiency 20 - 30 ng/mL (50 - 75 nmol/L) Sufficiency 30 - 100 ng/mL (75 - 250 nmol/L) Toxicity >100 ng/mL (>250 nmol/L) Platelets bldon 10-11-2022 Platelets (Bld) [#/Vol] 301 10*3/uL 150-450 [facility] Work Phone: Serum or plasma albumin lesly urement (mass/volume)on 10-11-2022 Albumin [Mass/Vol] 3.1 g/dL 3.2-5.0 [facility] Work Phone: Serum or plasma albumin/glob ulin mass ratioon 10-11-2022 Albumin/Globulin [Mass ratio] 0.8 {ratio} 0.9-2.4 [facility] Work Phone: Serum or plasma calcium lesly urement (mass/volume)on 10-11-2022 Calcium [Mass/Vol] 9.2 mg/dL 8.5-10.1 [facility] Work Phone: Serum or plasma cholesterol in HDL measurement (mass/volume)on 10-11-2022 Cholesterol in HDL [Mass/Vol] 64 mg/dL >40 [facility] Work Phone: Comment on above: The drugs N-Acetylcy steine and Metamizole may falsely depress this assay. Reference Range HDL <40 mg/dL Low HDL Cholesterol HDL >or= 60 mg/dL High HDL Cholesterol Serum or plasma cholesterol in VLDL measurement (mass/volume)on 10-11-2022 Cholesterol in VLDL [Mass/Vol] 40 mg/dL 5-40 [facility] Work Phone: Serum or plasma creatinine m easurement (mass/volume)on 10-11-2022 Creatinine [Mass/Vol] 2.35 mg/dL 0.55-1.02 [facility] Work Phone: Comment on above: The validity of the calculated GFR & GFRAA in patients over 70 years has not been determined. Clinical correlation is essential. Serum or plasma ferritin allyn surement (mass/volume)on 10-11-2022 Ferritin [Mass/Vol] 27 ng/mL 8-252 [facility] Work Phone: Serum or plasma low density lipoprotein (LDL) cholesterol measurement (mass/volume)on 10-11-2022 Cholesterol in LDL [Mass/Vol] 162 mg/dL 0-130 [facility] Work Phone: Serum or plasma urea nitroge n measurement (mass/volume)on 10-11-2022 Urea nitrogen [Mass/Vol] 38 mg/dL 7-18 [facility] Work Phone: Thin prep Papanicolaou smear with manual screeningon 10-11-2022 Thin prep Papanicolaou smear with manual screening 8 U/L 15-37 [facility] Work Phone: Thin prep Papanicolaou smear with manual screening 7 5-15 [facility] Work Phone: Laboratory - Hematology and Cell countson 07-04-2022 HbA1c (Bld) [Mass fraction] 7.2 % [facility] Work Phone: NICOTINE+METABOLITES,Son 2-FD-NDBCMNCG 156 ng/mL Normal [facility] Comment on above: Performed By: #### H EPFP #### [facility] [address] [place] [address] COTININE 194 ng/mL Normal [facility] Comment on above: Performed By: #### H EPFP #### [facility] [address] [place] [address] NICOTINE 7 ng/mL Normal [facility] Comment on above: Result Comment: Cons istent with use of a nicotine-containing product within 48 hours of specimen collection. Nicotine is metabolized to cotinine and 0-YL-qggwhbap. INTERPRETIVE INFORMATION: Nicotine and Metabolites, Serum or [...] developed and its performance characteristics determined by [employer]. It has not been cleared or approved by the [place] Food and Drug Administration. This test was performed in a CLIA certified laboratory and is intended for clinical purposes. Performed By: [facility] [address] [place] [id number] Director Life Sciences: Fabrizio Cruz MD, PhD Performed By: #### H EPFP #### [facility] [address] [place] [address] DRUG-PROFILE 9,BLOOD WITH RE FLEX TO CONFIRMATIONon 05-31-2022 AMPHETAMINES SCREEN Negative Normal Cutoff 20 [facility] Comment on above: Performed By: #### H EPFP #### [facility] [address] [place] [address] BARBITURATES SCREEN Negative Normal Cutoff 50 [facility] Comment on above: Performed By: #### H EPFP #### [facility] [address] [place] [address] BENZODIAZEPINES SCREEN Negative Normal Cutoff 50 [facility] Comment on above: Performed By: #### H EPFP #### [facility] [address] [place] [address] BUPRENORPHINE SCREEN Negative Normal Cutoff 1 [facility] Comment on above: Performed By: #### H EPFP #### [facility] [address] [place] [address] CANNABINOID SCREEN Negative Normal Cutoff 20 [facility] Comment on above: Performed By: #### H EPFP #### [facility] [address] [place] [address] COCAINE SCREEN Negative Normal Cutoff 20 [facility] Comment on above: Performed By: #### H EPFP #### [facility] [address] [place] [address] DRUG SCREEN COMMENT See Note Normal [facility] Comment on above: Result Comment: INTE RPRETIVE [...] developed and its performance characteristics determined by [employer]. It has not been cleared or approved by the [place] Food and Drug Administration. This test was performed in a CLIA certified laboratory and is intended for clinical purposes. Performed By: [facility] [address] [place] [address] Director Life Sciences: Fabrizio Cruz MD, PhD Performed By: #### H EPFP #### [facility] [address] [place] [address] METHADONE SCREEN Negative Normal Cutoff 25 [facility] Comment on above: Performed By: #### H EPFP #### [facility] [address] [place] [address] METHAMPHETAMINES SCREEN Negative Normal Cutoff 20 [facility] Comment on above: Performed By: #### H EPFP #### [facility] [address] [place] [address] OPIATE SCREEN Negative Normal Cutoff 20 [facility] Comment on above: Performed By: #### H EPFP #### [facility] [address] [place] [address] OXYCODONE SCREEN Negative Normal Cutoff 20 [facility] Comment on above: Performed By: #### H EPFP #### [facility] [address] [place] [address] PCP SCREEN Negative Normal Cutoff 10 [facility] Comment on above: Performed By: #### H EPFP #### [facility] [address] [place] [address] T-SPOT TBon 05-30-2022 NIL[NEG]CONTROL SPOT COUNT Passed Normal [facility] Comment on above: Performed By: #### H EPFP #### [facility] [address] [place] [address] PANEL A SPOT COUNT 0 Normal [facility] Comment on above: Performed By: #### H EPFP #### [facility] [address] [place] [address] PANEL B SPOT COUNT 2 Normal [facility] Comment on above: Performed By: #### H EPFP #### [facility] [address] [place] [address] POS CONTROL SPOT COUNT Passed Normal [facility] Comment on above: Performed By: #### H EPFP #### [facility] [address] [place] [address] T-SPOT.TB INTERP Negative Normal Normal Value: Negative [facility] Comment on above: Result Comment: A ne [...] test. Performed By: #### H EPFP #### [facility] [address] [place] [address] ABO/RH GROUP TESTon 05-28-20 ABO TYPE O Normal [facility] Comment on above: Performed By: #### H LAS1 #### [facility] [address] [place] [address] RH TYPE Positive Normal [facility] Comment on above: Performed By: #### H LAS1 #### [facility] [address] [place] [id number] AUTOCROSSMATCH, FLOWon 05-28 AUTOCROSSMATCH, FLOW SEE SEPARATE REPORT Normal [facility] Comment on above: Result Comment: Test performed at [facility]ocompatibility and Immunogenetics Laboratory [facility], 6th Floor [address] [place] [address] Performed By: #### U SWETHA #### [facility] [address] [facility] [facility] [place] [address] AUTOCROSSMATCH, FLOW Canceled Normal [facility] Comment on above: Order Comment: TEST AUTOCROSSMATCH, FLOW WAS CANCELLED, 05/28/2022 13:06 Result Comment: Test performed at [facility]ocompatibility and Immunogenetics Laboratory [facility], 6th Floor [address] [place] [address] Performed By: #### H EPFP #### [facility] [address] [facility] [facility] [address] [place] [id number] Blood Typing (ABO + Rho D)on 05-28-2022 ABO group Nom (Bld) O MG-Tr ansplant- [facility] [employer] Work Phone: Rh immune globulin screen (Bld) [Interp] Positive MG-Transpl ant- [facility] [employer] [address] Work Phone: Blood Urea Nitrogen, Serumon 05-28-2022 Urea nitrogen [Mass/Vol] 47 mg/dL above high threshold 6 - 23 [facility]-Trans[facility]- [facility] [employer] [address] Work Phone: C PEPTIDEon 05-28-2022 C PEPTIDE 0.1 ng/mL Low 0.7 - 3.9 [facility] Comment on above: Performed By: #### U SWETHA #### [facility] [address] [place] [address] C Peptide, Serumon 2 C peptide [Mass/Vol] 0.1 ng/mL below low threshold 0.7 - 3.9 [facility]Trans[facility]- [facility] [employer] Work Phone: CBCon 05-28-2022 Erythrocyte distribution width (RBC) [Ratio] 13.5 % Normal 11.5 - 14.5 [facility] Comment on above: Performed By: #### U SWETHA #### [facility] [address] [place] [address] Hematocrit (Bld) [Volume fraction] 37.0 % Normal 36.0 - 46.0 [facility] Comment on above: Performed By: #### U SWETHA #### [facility] [address] [place] [address] Hemoglobin (Bld) [Mass/Vol] 11.3 g/dL Low 12.0 - 16.0 [facility] Comment on above: Performed By: #### U SWETHA #### [facility] [address] [place] [address] MCHC (RBC) [Mass/Vol] 30.5 g/dL Low 32.0 - 36.0 [facility] Comment on above: Performed By: #### U SWETHA #### [facility] [address] [place] [address] MCV (RBC) [Entitic vol] 101 fL High 80 - 100 [facility] Comment on above: Performed By: #### U SWETHA #### [facility] [address] [place] [address] NUCLEATED RBC 0.0 /100 WBC Normal 0.0-0.0 [facility] Comment on above: Performed By: #### U SWETHA #### [facility] [address] [place] [address] Platelets (Bld) [#/Vol] 240 10*3/uL Normal 150 - 450 [facility] Comment on above: Performed By: #### U SWETHA #### [facility] [address] [place] [address] RBC 3.66 x10E12/L Low 4.00 - 5.20 [facility] Comment on above: Performed By: #### U SWETHA #### [facility] [address] [place] [address] WBC (Bld) [#/Vol] 9.3 10*3/uL Normal 4.4 - 11.3 [facility] Comment on above: Performed By: #### U SWETHA #### [facility] [address] [place] [address] CMV IGGon 05-28-2022 CMV IGG AB Reactive Abnormal NONREACTIVE [facility] Comment on above: Performed By: #### H LAS1 #### [facility] [address] [place] [address] CMV IgGon 05-28-2022 CMV IgG Reactive Abnormal See Below [facility]Trans[facility]- [facility] [employer] [address] Work Phone: Comment on above: SOURCE: Reference Ra nge: NONREACTIVE CREATININEon 05-28-2022 Creatinine [Mass/Vol] 2.19 mg/dL High 0.50 - 1.05 [facility] Comment on above: Performed By: #### H LAS1 #### [facility] [address] [place] [address] GFR/1.73 sq M.predicted among non-blacks MDRD (S/P/Bld) [Vol rate/Area] 25 mL/min/{1.73_m2} Abnormal >90 [facility] Comment on above: Result Comment: CALC ULATIONS OF ESTIMATED GFR ARE PERFORMED USING THE 2020 CKD-EPI STUDY REFIT EQUATION WITHOUT THE RACE VARIABLE FOR THE IDMS-TRACEABLE CREATININE METHODS. https://jasn.asnjournals.org/content/early/ASN.50216 05336 Performed By: #### H LAS1 #### [facility] [address] [place] [address] Creatinine, Serumon 05-28-20 Creatinine [Mass/Vol] 2.19 mg/dL above high threshold See Below [facility]-Transplant- [facility] [employer] [address] Work Phone: Comment on above: Reference Range: 0.5 0 - 1.05 Creatinine, Serum 25 {mL/min/1.73m2} Abnormal >90 [facility]-Transplant- [facility] [employer] [address] Work Phone: Comment on above: CALCULATIONS OF EMILIO MATED GFR ARE PERFORMED USING THE 2020 CKD-EPI STUDY REFIT EQUATION WITHOUT THE RACE VARIABLE FOR THE IDMS-TRACEABLE CREATININE METHODS.https://jasn.asnjournals.org/content//A SN.5260726288 EBV PANELon 05-28-2022 VCA IGM ANTIBODY Negative Normal NEGATIVE [facility] Comment on above: Performed By: #### E BVP1 #### [facility] [address] [place] [address] EBV EA-D IGG ANTIBODY Negative Normal NEGATIVE [facility] Comment on above: Performed By: #### E BVP1 #### [facility] [address] [place] [address] EBV INTERPRETATION SEE BELOW Normal [facility] Comment on above: Result Comment: . EB V INTERPRETATION CHART . VCA-IGG VCA-IGM NA-IGG EA-IGG . PRIMARY ACUTE +/- +/- - +/- LATE ACUTE + +/- +/- +/- RECOVERING + - - + PREVIOUS INFECTION + - +/- - Performed By: #### E BVP1 #### [facility] [address] [place] [address] EBV NA-1 IGG ANTIBODY Positive Abnormal NEGATIVE [facility] Comment on above: Performed By: #### E BVP1 #### [facility] [address] [place] [address] VCA IGG ANTIBODY Positive Abnormal NEGATIVE [facility] Comment on above: Performed By: #### E BVP1 #### [facility] [address] [place] [address] HEMOGLOBIN A1Con 05-28-2022 Glucose [Mass/Vol] 194 mg/dL Normal [facility] Comment on above: Performed By: #### H EPFP #### [facility] [address] [place] [address] HbA1c (Bld) [Mass fraction] 8.4 % Abnormal [facility] Comment on above: Result Comment: Diag nosis of Diabetes-Adults Non-Diabetic: < or = 5.6% Increased risk for developing diabetes: 5.7-6.4% Diagnostic of diabetes: > or = 6.5% . Monitoring of Diabetes Age (y) Therapeutic Goal (%) Adults: >18 <7.0 Pediatrics: 13-18 <7.5 7-12 <8.0 0- 6 7.5-8.5 [employer]. Diabetes Care 33(S1), Nov 2009. Performed By: #### H EPFP #### [facility] [address] [place] [address] HEPATIC FUNCTION PANELon Albumin [Mass/Vol] 3.5 g/dL Normal 3.4 - 5.0 [facility] Comment on above: Performed By: #### H EPFP #### [facility] [address] [place] [address] ALP [Catalytic activity/Vol] 70 U/L Normal 33 - 136 [facility] Comment on above: Performed By: #### H EPFP #### [facility] [address] [place] [address] ALT [Catalytic activity/Vol] 12 U/L Normal 7 - 45 [facility] Comment on above: Result Comment: Lauren ents treated with Sulfasalazine may generate falsely decreased results for ALT. Performed By: #### H EPFP #### [facility] [address] [place] AST [Catalytic activity/Vol] 15 U/L Normal 9 - 39 [facility] Comment on above: Performed By: #### H EPFP #### [facility] [address] [place] Bilirubin [Mass/Vol] 0.3 mg/dL Normal 0.0 - 1.2 [facility] Comment on above: Performed By: #### H EPFP #### [facility] [address] [place], [place] Bilirubin.indirect [Mass/Vol] 0.1 mg/dL Normal 0.0 - 0.3 [facility] Comment on above: Performed By: #### H EPFP #### [facility] [address] [place] Protein [Mass/Vol] 6.0 g/dL Low 6.4 - 8.2 [facility] Comment on above: Performed By: #### H EPFP #### [facility] [address] [place], [place] HEPATITIS B CORE AB-TOTALon 05-28-2022 HEP. B CORE AB-TOTAL Non-Reactive Normal NONREACTIVE [facility] Comment on above: Result Comment: Resu lts from patients taking biotin supplements or receiving high-dose biotin therapy should be interpreted with caution due to possible interference with this test. Providers may contact their local laboratory for further information. Performed By: #### H BCRT #### [facility] [address] [place], [place] Lab Specimen Source Normal [facility] Comment on above: Performed By: #### H BCRT #### [facility] [address] [place], [place] Performed By: #### S YPHR #### [facility] [address] [place], [place] [id number] Performed By: #### H LAS1 #### [facility] [address] [place], [place] Performed By: #### U SWETHA #### [facility] [address] [place], [place] HEPATITIS B SURF ABon 2021 HEP B SURF AB <3.1 Normal <10 [facility] Comment on above: Result Comment: INTE RPRETIVE CRITERIA: <10 mIU/mL....NONREACTIVE >=10 mIU/mL...REACTIVE . Biotin interference may cause falsely decreased results. Patients taking a Biotin dose of up to 5 mg/day should refrain from taking Biotin for 24 hours before sample collection. Providers may contact their local laboratory for further information. Performed By: #### H LAS1 #### [facility] [address] [place] [address] HEPATITIS B SURFACE AGon HEP.B SURFACE AG Non-Reactive Normal NONREACTIVE [facility] Comment on above: Result Comment: Biot in interference may cause falsely decreased results. Patients taking a Biotin dose of up to 5 mg/day should refrain from taking Biotin for 24 hours before sample collection. Providers may contact their local laboratory for further information. Performed By: #### U SWETHA #### [facility] [address] [place] [id number] HEPATITIS C ABon 05-28-2022 HEPATITIS C AB Non-Reactive Normal NONREACTIVE [facility] Comment on above: Result Comment: Resu lts from patients taking biotin supplements or receiving high-dose biotin therapy should be interpreted with caution due to possible interference with this test. Providers may contact their local laboratory for further information. Performed By: #### H LAS1 #### [facility] [address] [place] [address] HIV 1/2 ANTIGEN/ANTIBODY SCR EEN WITH REFLEX TO CONFIRMATIONon 05-28-2022 HIV 1/2 AG/AB SCREEN Non-Reactive Normal NONREACTIVE [facility] Comment on above: Result Comment: HIV Ag/Ab screen is performed using the Siemens Splinter.me HIV Ag/Ab Combo assay which detects the presence of HIV p24 antigen as well as antibodies to HIV-1 (Group M and O) and HIV-2. . No laboratory evidence of HIV infection. If acute HIV infection is suspected, consider testing for HIV RNA by PCR (viral load). Performed By: #### H LAS1 #### [facility] [address] [place] [address] HIV 1+2 Ab Qn (S) Non-Reactive See Below [facility]-Tr ansplant- [facility] [address] Work Phone: Comment on above: SOURCE: Reference nge: NONREACTIVE HIV Ag/Ab screen is performed [...] CLASS I AB SCREEN,FC SEE COMMENT Normal [facility] Comment on above: Result Comment: HLA CLASS I AB SCREEN,FLOW CYTOMETRY SEE SEPARATE REPORT. Test performed at [facility] Histocompatibility and Immunogenetics Laboratory [facility], 6th [address] [address] [place] [address] Performed By: #### H LAS1 #### [facility] [address] [place] [address] HLA CLASS I AB SCREEN,FC Canceled Normal [facility] Comment on above: Order Comment: TEST HLA CLASS I AB SCREEN,FC WAS CANCELLED, 05/28/2022 13:06 Performed By: #### H LAS1 #### [facility] [address] [place] [id number] HLA CLASS II AB SCREEN,FCon 05-28-2022 HLA CLASS II AB SCREEN,FC SEE COMMENT Normal [facility] Comment on above: Result Comment: HLA CLASS II AB SCREEN,FLOW CYTOMETRY SEE SEPARATE REPORT. Test performed at [facility] Histocompatibility and Immunogenetics Laboratory [facility], 6th [address] [address] [place] [address] Performed By: #### U SWETHA #### [facility] [address] [place] [id number] HLA CLASS II AB SCREEN,FC Canceled Normal [facility] Comment on above: Order Comment: TEST HLA CLASS II AB SCREEN,FC WAS CANCELLED, 05/28/2022 13:06 Performed By: #### H LAS1 #### [facility] [address] [place] [address] HLA-A,B,C LRon 05-28-2022 HLA-A LOCUS LR TYPE SEE COMMENT Normal [facility] Comment on above: Result Comment: HLA- A LOCUS, LOW RESOLUTION TYPE SEE SEPARATE REPORT. Performed By: #### H EPFP #### [facility] [address] [place] [address] HLA-B LOCUS LR TYPE SEE COMMENT Normal [facility] Comment on above: Result Comment: HLA- B LOCUS, LOW RESOLUTION TYPE SEE SEPARATE REPORT. Performed By: #### H EPFP #### [facility] [address] [place] [address] HLA-C LOCUS LR TYPE SEE COMMENT Normal [facility] Comment on above: Result Comment: HLA- C LOCUS, LOW RESOLUTION TYPE SEE SEPARATE REPORT. Test performed at [facility]ocompatibility and Immunogenetics Laboratory [facility], [address]th [address] [place] [address] Performed By: #### H EPFP #### [facility] [address] [place] [address] HLA-A LOCUS LR TYPE Canceled Normal [facility] Comment on above: Order Comment: TEST HLA-A,B,C LR WAS CANCELLED, 05/28/2022 13:06 Performed By: #### H EPFP #### [facility] [address] [place] [address] HLA-B LOCUS LR TYPE Canceled Normal [facility] Comment on above: Order Comment: TEST HLA-A,B,C LR WAS CANCELLED, 05/28/2022 13:06 Performed By: #### H EPFP #### [facility] [address] [place] [address] HLA-C LOCUS LR TYPE Canceled Normal [facility] Comment on above: Order Comment: TEST HLA-A,B,C LR WAS CANCELLED, 05/28/2022 13:06 Performed By: #### H EPFP #### [facility] [address] [place] [address] HLA-DPB1 HR TYPINGon 022 HLA-DPB1 HR TYPING SEE COMMENT Normal [facility] Comment on above: Result Comment: HLA- DPB1 HIGH RESOLUTION TYPING SEE SEPARATE REPORT. Test performed at [facility]ocompatibility and Immunogenetics Laboratory [facility], 6th Floor [address] [place] [address] Performed By: #### D PBHT #### [facility] [address] [place] [id number] HLA-DPB1 HR TYPING Canceled Normal [facility] Comment on above: Order Comment: TEST HLA-DPB1 HR TYPING WAS CANCELLED, 05/28/2022 13:06 Performed By: #### D PBHT #### [facility] [address] [place] [id number] HLA-DQB1 HR TYPINGon 022 HLA-DQB1 HR TYPING SEE COMMENT Normal [facility] Comment on above: Result Comment: HLA- DQB1 HIGH RESOLUTION TYPING SEE SEPARATE REPORT. Test performed at [facility]ocompatibility and Immunogenetics Laboratory [facility], 6th Floor [address] [place] [address] Performed By: #### D QBHT #### [facility] [address] [place] [id number] HLA-DQB1 HR TYPING Canceled Normal [facility] Comment on above: Order Comment: TEST HLA-DQB1 HR TYPING WAS CANCELLED, 05/28/2022 13:06 Performed By: #### H EPFP #### [facility] [address] [place] [id number] HLA-DRB1/3/4/5 AND DQB1 LR T YPINGon 05-28-2022 HLA-DRB1/3/4/5 & DQB1 LR TYPING SEE COMMENT Normal [facility] Comment on above: Result Comment: HLA- DRB1/3/4/5 AND DQB1 LOW RESOLUTION TYPING SEE SEPARATE REPORT. Test performed at [facility]ocompatibility and Immunogenetics Laboratory [facility], 6th Floor [address] [place] [address] Performed By: #### H EPFP #### [facility] [address] [place] [id number] HLA-DRB1/3/4/5 & DQB1 LR TYPING Canceled Normal [facility] Comment on above: Order Comment: TEST HLA-DRB1/3/4/5 AND DQB1 LR TYPING WAS CANCELLED, 05/28/2022 13:06 Performed By: #### H EPFP #### [facility] [address] [address] Hemoglobin A1Con 05-28-2022 Glucose [Mass/Vol] 194 mg/dL MG-Tra nsplant- [facility] Work Phone: HbA1c (Bld) [Mass fraction] 8.4 % Abnormal MG-Transplant- [facility] Work Phone: Comment on above: Diagnosis of Diabete s-Adults Non-Diabetic: < or = 5.6% Increased risk for developing diabetes: 5.7-6.4% Diagnostic of diabetes: > or = 6.5%. Monitoring of Diabetes Age (y) Therapeutic Goal (%) Adults: >18 <7.0 Pediatrics: 13-18 <7.5 7-12 <8.0 0- 6 7.5-8.5 [employer]. Diabetes Care 33(S1), Nov 2009. Hepatic Function Panelon Albumin BCP dye [Mass/Vol] 3.5 g/dL 3.4 - 5.0 MG-Transplant- [facility] [employer] Work Phone: ALP [Catalytic activity/Vol] 70 U/L 33 - 136 MG-Transplant- [facility] [employer] Work Phone: ALT With P-5'-P [Catalytic activity/Vol] 12 U/L 7 - 45 MG-Transplant- [facility] [employer] Work Phone: Comment on above: Patients treated wit h Sulfasalazine may generate falsely decreased results for ALT. AST With P-5'-P [Catalytic activity/Vol] 15 U/L 9 - 39 MG-Transplant- [facility] [employer] Work Phone: Bilirubin [Mass/Vol] 0.3 mg/dL 0.0 - 1.2 MG-T ransplant- [facility] [employer] Work Phone: Bilirubin.direct [Mass/Vol] 0.1 mg/dL 0.0 - 0.3 MG-Transplant- [facility] [address] Work Phone: Protein [Mass/Vol] 6.0 g/dL below low threshold 6.4 - 8.2 MG-Transplant- [facility] 1800 Work Phone: Hepatitis B Core Antibody, T otalon 05-28-2022 Hepatitis B Core Antibody, Total Non-Reactive See Below MG-Transplant- [facility] [employer] [address] Work Phone: Comment on above: SOURCE: Reference Ra nge: NONREACTIVE Results from patients taking biotin supplements or receiving high-dose biotin therapy should be interpreted with caution due to possible interference with this test. Providers may contact their local laboratory for further information. SOURCE: Reference Ra nge: NONREACTIVE Biotin interference may cause falsely decreased results. Patients taking a Biotin dose of up to 5 mg/day should refrain from taking Biotin for 24 hours before sample collection. Providers may contact their local laboratory for further information. Hepatitis B Surface Antibody on 05-28-2022 HBV surface Ag IA Ql <3.1 <10 MG-T ransplant- [facility] [place] [employer] Work Phone: Comment on above: SOURCE: INTERPRETIVE CRITERIA:<10 mIU/mL....NONREACTIVE >=10 mIU/mL...REACTIVE . Biotin interference may cause falsely decreased results. Patients taking a Biotin dose of up to 5 mg/day should refrain from taking Biotin for 24 hours before sample collection. Providers may contact their local laboratory for further information. Laboratory - Drug toxicology on 05-28-2022 Amphetamines Screen Ql Negative Cutoff 20 MG -Transplant- [facility] Work Phone: Barbiturates Screen Ql Negative Cutoff 50 MG -Transplant- [facility] Work Phone: Benzodiazepines Screen Ql Negative Cutoff 50 MG-Transplant- [facility] Work Phone: Cannabinoids Screen Ql Negative Cutoff 20 MG -Transplant- [facility] Work Phone: Cocaine Screen Ql Negative Cutoff 20 MG-Mora splant- [facility] Work Phone: Methadone Screen Ql Negative Cutoff 25 MG-Tr ansplant- [facility] Work Phone: Methamphetamine Ql Negative Cutoff 20 MG-Tra nsplant- [facility] Work Phone: Opiates Screen Ql Negative Cutoff 20 MG-Mora splant- [facility] Work Phone: oxyCODONE Ql Negative Cutoff 20 MG-Transplan t- [facility] Work Phone: Phencyclidine Screen Ql Negative Cutoff 10 MG-Transplant- [facility] Work Phone: Laboratory - HLA antigenson 05-28-2022 HLA-A locus Nom (Bld/Tiss) SEE COMMENT [facility] [employer] Work Phone: Comment on above: HLA-A LOCUS, LOW RES OLUTION TYPE SEE SEPARATE REPORT. HLA-B locus Nom (Bld/Tiss) SEE COMMENT [facility] [employer] Work Phone: Comment on above: HLA-B LOCUS, LOW RES OLUTION TYPE SEE SEPARATE REPORT. HLA-C locus Nom (Bld/Tiss) SEE COMMENT [facility] [employer] Work Phone: Comment on above: HLA-C LOCUS, LOW RES OLUTION TYPE SEE SEPARATE REPORT.Test performed at [facility]ocompatibility and Immunogenetics Laboratory [facility], 6th Floor [address] [place] [address] HLA-DP2 Ql (Bld/Tiss) SEE COMMENT [facility] [employer] Work Phone: Comment on above: HLA-DPB1 HIGH RESOLU TION TYPING SEE SEPARATE REPORT.Test performed at [facility]ocompatibility and Immunogenetics Laboratory [facility], 6th Floor [address] [place] [address] HLA-DQB1 High resolution Nom (Bld/Tiss) SEE COMMENT [facility] [employer] Work Phone: Comment on above: HLA-DQB1 HIGH RESOLU TION TYPING SEE SEPARATE REPORT.Test performed at [facility]ocompatibility and Immunogenetics Laboratory [facility], 6th Floor [address] [place] [address] HLA-DR+DQ Nom (Bld/Tiss) SEE COMMENT [facility]-Transplant- [facility] [place] [address] Work Phone: Comment on above: HLA-DRB1/3/4/5 & DQB 1 LOW RESOLUTION TYPING SEE SEPARATE REPORT.Test performed at [facility]ocompatibility and Immunogenetics Laboratory [facility], 6th Floor [address] [place] [address] HLA-A locus Nom (Bld/Tiss) Canceled [facility]-Transplant- [facility] [address] Work Phone: HLA-B locus Nom (Bld/Tiss) Canceled [facility]-Transplant- [facility] [address] Work Phone: HLA-C locus Nom (Bld/Tiss) Canceled [facility]-Transplant- [facility] [place] [address] Work Phone: HLA-DP2 Ql (Bld/Tiss) Canceled MG- Transplant- [facility] Work Phone: HLA-DQB1 High resolution Nom (Bld/Tiss) Canceled [facility]-Transplant- [facility] [address] Work Phone: HLA-DR+DQ Nom (Bld/Tiss) Canceled [facility]-Transplant- [facility] Work Phone: Laboratory - Hematology and Cell countson 05-28-2022 Erythrocyte distribution width (RBC) [Ratio] 13.5 % See Below [facility]-Transplant- [facility] [address] Work Phone: Comment on above: Reference Range: 11. 5 - 14.5 Hematocrit (Bld) [Volume fraction] 37.0 % See Below [facility]-Transplant- [facility] [address] Work Phone: Comment on above: Reference Range: 36. 0 - 46.0 Hemoglobin (Bld) [Mass/Vol] 11.3 g/dL below low threshold See Below [facility]-Transplant- [facility] [address] Work Phone: Comment on above: Reference Range: 12. 0 - 16.0 MCHC (RBC) [Mass/Vol] 30.5 g/dL below low threshold See Below [facility]-Transplant- [facility] [address] Work Phone: Comment on above: Reference Range: 32. 0 - 36.0 MCV (RBC) [Entitic vol] 101 fL above high threshold 80 - 100 [facility]-Transplant- [facility] Work Phone: Platelets (Bld) [#/Vol] 240 10*3/uL 150 - 450 [facility]-Transplant- [facility] [place] [address] Work Phone: RBC (Bld) [#/Vol] 3.66 {x10E12/L} below low threshold See Below [facility]-Transplant- [facility] [place] [address] Work Phone: Comment on above: Reference Range: 4.0 0 - 5.20 WBC (Bld) [#/Vol] 9.3 10*3/uL 4.4 - 11.3 MG-Tra nsplant- [facility] [place] [address] Work Phone: Laboratory - Microbiology an d Antimicrobial susceptibilityon 05-28-2022 EBV capsid IgG IA Qn (S) Positive Abnormal NEGATIVE MG-Transplant- [facility] 1800 Work Phone: EBV capsid IgM IA Qn (S) Negative NEGATIVE [facility]-Transplant- [facility] [address] Work Phone: EBV early IgM IA Qn (S) Negative NEGATIVE MG-Transplant- [facility] 1800 Work Phone: EBV nuclear IgG IA Qn (S) Positive Abnormal NEGATIVE MG-Transplant- [facility] 1800 Work Phone: Nicotine+Metabolites, Serumo n 05-28-2022 Cotinine [Mass/Vol] 194 ng/mL MG-Tr [facility] Work Phone: Nicotine [Mass/Vol] 7 ng/mL [facility] Work Phone: Comment on above: Consistent with use of a nicotine-containing product [id number] hours of specimen collection. Nicotine is metabolizedto cotinine and 0-QR-iodrkbir.INTERPRETIVE INFORMATION: Nicotine and Metabolites, Serum or Plasma, [...] developed and its performance characteristics determined by [employer]. It has not been cleared or approved by the US Food and Drug Administration. This test was performed in a CLIA certified laboratory and is intended for clinical purposes.Performed By: [employer] [place] [id number] Director: Fabrizio Cruz MD, PhD Hxero-1-Oephxysrtnweat e [Mass/Vol] 156 ng/mL [facility] Work Phone: No Panel Informationon 05-28 SEE COMMENT -Transplant - [facility] 1800 Work Phone: Comment on above: HLA CLASS I AB SCREE N,FLOW CYTOMETRY SEE SEPARATE REPORT.Test performed at [facility] Histocompatibility and Immunogenetics Laboratory [facility], 6th Floor [id number] [place] [address] HLA CLASS II AB SCRE EN,FLOW CYTOMETRY SEE SEPARATE REPORT.Test performed at [facility]ocompatibility and Immunogenetics Laboratory [facility], 6th Floor [address] [place] [address] SEE SEPARATE REPORT MG-Tr ansplant- [facility] 1800 Work Phone: Comment on above: Test performed at [facility] Histocompatibility and Immunogenetics Laboratory [facility], 6th Floor [address] [place] [address] Annotation comment [Interpretation] Narrative See Note [facility] Work Phone: Comment on above: INTERPRETIVE INFORMA [...] developed and its performance characteristics determined by [employer]. It has not been cleared or approved by the US Food and Drug Administration. This test was performed in a CLIA certified laboratory and is intended for clinical purposes.Performed By: [employer] [place] [id number] Director: Fabrizio Cruz MD, PhD 0.0 {/100_WBC} 0.0-0.0 [facility]-Transpl ant- [facility] [employer] Work Phone: SEE BELOW [facility]- [facility] [employer] Work Phone: Comment on above: . EBV INTERPRETATION CHART. VCA-IGG VCA-IGM NA-IGG EA-IGG. PRIMARY ACUTE +/- +/- - +/-LATE ACUTE + +/- +/- +/-RECOVERING + - - +PREVIOUS INFECTION + - +/- - Canceled [facility]- [facility] [employer] Work Phone: Comment on above: Test performed at [facility] Histocompatibility and Immunogenetics Laboratory [facility], 6th Floor [address] [place], [place] [id number] Office VIsit (Pre-Transplant Surgery)on 05-28-2022 Follow-up visit Diagnosis/Problems Assessed Pre-transplant evaluation for kidney transplant (V72.83) (Z01.818) History of end stage renal disease (V13.09) (Z87.448) History of diabetes mellitus (V12.29) (Z86.39) History of chronic obstructive lung disease (V12.69) (Z87.09) History of coronary artery disease (V12.59) (Z86.79) History of Appendectomy History of Hysterectomy Current smoker (305.1) (F17.200) Has access to mass [employer] and [employer] Health insurance coverage Living Situation: Supportive [...] concept of Centers for Disease Control and public health services high-risk donors and a potential [...] All medical record entries made by the Stanibmari were at my direction and personally dictated [...] Bird Lujan. Referral: Dr. Christy Huerta (tel: [phone] fax: [phone]). I am seeing SANDY DENG at the referring provider's request for surgical suitability for renal transplant candidate listing at [facility] [place]. History of Present Illness Comments: Ms. SANDY [...] [Mass/Vol] 5.3 mg/dL High 2.5 - 4.9 [facility] Comment on above: Result Comment: The performance characteristics of phosphorus testing in heparinized plasma have been validated by the individual laboratory site where testing is performed. Testing on heparinized plasma is not approved by the FDA; however, such approval is not necessary. Performed By: #### H LAS1 #### [facility] [address] [place] [address] Phosphorus, Serumon 05-28-20 22 Phosphate [Mass/Vol] 5.3 mg/dL above high threshold 2.5 - 4.9 [facility] [employer] [address] Work Phone: Comment on above: The performance armond acteristics of phosphorus testing in heparinized plasma have been validated by the individual laboratory site where testing is performed. Testing on heparinized plasma is not approved by the FDA; however, such approval is not necessary. SYPHILIS SCREENING WITH REFL EXon 05-28-2022 SYPHILIS TOTAL AB Non-Reactive Normal NONREACTIVE [facility] Comment on above: Result Comment: No s ignificant level of Treponema pallidum antibody detected. Repeat testing in 2 to 4 weeks may be considered if early infection or incubating syphilis infection is suspected. Performed By: #### S YPHR #### [facility] [address] [place], [place] [id number] T. pallidum IgG+IgM IA Ql (S) Non-Reactive See Below [facility] [employer] Work Phone: Comment on above: SOURCE: Reference Ra nge: NONREACTIVENo significant level of Treponema pallidum antibody detected. Repeat testing in 2 to 4 weeks may be considered if early infection or incubating syphilis infection is suspected. T-SPOT. TBon 05-28-2022 T-SPOT. TB Passed MG-Transplant- [facility] Work Phone: T-SPOT. TB 2 1 [facility] Work Phone: T-SPOT. TB 0 1 [facility] Work Phone: Tobacco Screening.on 022 Fall risk assessment a) No falls within the last year [facility] [employer] [address] Work Phone: Tobacco use status CPHS a) Yes MG-Transplant- [facility] [place] [address] Work Phone: Tobacco Screening. Yes MG-Tra nsplant- [facility] [employer] [address] Work Phone: UA MICROSCOPICon 05-28-2022 Mucus Ql (Urine sed) 1+ /LPF Normal [facility] Comment on above: Performed By: #### U SWETHA #### [facility] [address] [place] [address] RBC 2 /HPF Normal 0-5 [facility] Comment on above: Performed By: #### U SWETHA #### [facility] [address] [place] [address] SQUAMOUS EPITH. CELLS 3 /HPF Normal [facility] Comment on above: Performed By: #### U SWETHA #### [facility] [address] [place] [address] WBC 12 /HPF Abnormal 0-5 [facility] Comment on above: Performed By: #### U SWETHA #### [facility] [address] [place] [address] UREA NITROGENon 05-28-2022 Urea nitrogen [Mass/Vol] 47 mg/dL High 6 - 23 [facility] Comment on above: Performed By: #### U SWETHA #### [facility] [address] [place] [address] URINALYSISon 05-28-2022 Appearance (U) CLEAR Normal CLEAR [facility] Comment on above: Performed By: #### H LAS1 #### [facility] [address] [place] [address] Bilirubin Ql (U) Negative Normal NEGATIVE [facility] Comment on above: Performed By: #### H LAS1 #### [facility] [address] [place] [address] Color (U) YELLOW Normal STRAW,YELLOW [facility] Comment on above: Performed By: #### H LAS1 #### [facility] [address] [place] [address] Glucose Ql (U) Negative Normal NEGATIVE [facility] Comment on above: Performed By: #### H LAS1 #### [facility] [address] [place] [address] Hemoglobin Ql (U) Negative Normal NEGATIVE [facility] Comment on above: Performed By: #### H LAS1 #### [facility] [address] [place] [address] Ketones Ql (U) Negative Normal NEGATIVE [facility] Comment on above: Performed By: #### H LAS1 #### [facility] [address] [place] [address] Leukocyte esterase Test strip Ql (U) SMALL (1+) Abnormal NEGATIVE [facility] Comment on above: Performed By: #### H LAS1 #### [facility] [address] [place] [address] Nitrite Ql (U) Negative Normal NEGATIVE [facility] Comment on above: Performed By: #### H LAS1 #### [facility] [address] [place] [address] pH (U) 5.0 [pH] Normal 5.0 - 8.0 [facility] Comment on above: Performed By: #### H LAS1 #### [facility] [address] [place] [address] Protein Ql (U) 100 (2+) Abnormal NEGATIVE [facility] Comment on above: Performed By: #### H LAS1 #### [facility] [address] [place] [address] Specific gravity (U) [Rel density] 1.016 Normal 1.005 - 1.035 [facility] Comment on above: Performed By: #### H LAS1 #### [facility] [address] [place] [address] Urobilinogen (U) [Mass/Vol] mg/dL Normal 0.0 - 1.9 [facility] Comment on above: Performed By: #### H LAS1 #### [facility] [address] [place] [address] Urinalysison 05-28-2022 Color (U) YELLOW See Below [facility]-Transplant- [facility] [address] Work Phone: Comment on above: Reference Range: STR AW,YELLOW Glucose Ql (U) Negative NEGATIVE [facility]-Transpl ant- [facility] [employer] Work Phone: Ketones Ql (U) Negative NEGATIVE [facility]-Transpl ant- [facility] [employer] Work Phone: Leukocyte esterase Test strip Ql (U) SMALL (1+) Abnormal NEGATIVE [facility] [employer] Work Phone: pH (U) 5.0 [pH] 5.0 - 8.0 [facility]Trans[facility]- [facility] [employer] Work Phone: Protein (U) [Mass/Vol] 100 (2+) Abnormal NEGATIVE [facility] -Transplant- [facility] [employer] Work Phone: RBC (U) [#/Vol] Negative NEGATIVE MG-Transp lant- [facility] [employer] Work Phone: Specific gravity (U) [Rel density] 1.016 1 See Below [facility] [employer] Work Phone: Comment on above: Reference Range: 1.0 05 - 1.035 Urinalysis Negative NEGATIVE [facility]- [facility] [employer] Work Phone: Comment on above: Reference Range: [...] test. Urinalysis <2.0 0.0 - 1.9 [facility]- [facility] [employer] Work Phone: Urinalysis CLEAR CLEAR [facility]-Trans[facility]- [facility] [employer] [address] Work Phone: Urinalysis, Microscopicon Urinalysis, Microscopic 1+ MG-Transplant- [facility] [employer] [address] Work Phone: Urinalysis, Microscopic 3 {/HPF} MG-Transplant- [facility] [employer] [address] Work Phone: Urinalysis, Microscopic 2 {/HPF} 0-5 MG-Transplant- [facility] [employer] [address] Work Phone: Urinalysis, Microscopic 12 {/HPF} Abnormal 0-5 MG-Transplant- [facility] [employer] [address] Work Phone: VARICELLA ZOSTER IGG ABon VARICELLA ZOSTER IGG AB Positive Normal NEGATIVE [facility] Comment on above: Result Comment: INTE RPRETATIVE [...] assays. Performed By: #### H LAS1 #### [facility] [address] [address] Varicella Zoster IgG Antibod yon 05-28-2022 VZV IgG IA Ql (S) Positive NEGATIVE [facility]- [facility] [facility] [employer] Work Phone: Comment on above: INTERPRETATIVE COMME [...] percentageon 2021 Basophil percentage 3.2 mg/dL 2.5-4.9 [facility] Work Phone: Chloride [Moles/Vol] 104 mmol/L 98-107 [facility] Work Phone: Glucose [Mass/Vol] 92 mg/dL 74-106 [facility] Work Phone: Potassium [Moles/Vol] 4.3 mmol/L 3.5-5.1 [facility] Work Phone: Sodium [Moles/Vol] 137 mmol/L 136-145 [facility] Work Phone: WBC (Bld) [#/Vol] 9.6 10*3/uL 4.4-11.0 [facility] Work Phone: Blood erythrocytes count (nu mber/volume)on 05-02-2022 RBC (Bld) [#/Vol] 4.06 10*6/uL 4.2-5.4 [facility] Work Phone: Blood hemoglobin measurement (mass/volume)on 05-02-2022 Hemoglobin (Bld) [Mass/Vol] 12.1 g/dL 12.0-15.0 [facility] Work Phone: Blood platelet mean volumeon 05-02-2022 Platelet mean volume (Bld) [Entitic vol] 9.5 fL 6.2-12.0 [facility] Work Phone: Determination of erythrocyte mean corpuscular volume (MCV)on 05-02-2022 MCV (RBC) [Entitic vol] 95.3 fL 81-99 [facility] Work Phone: Hematocrit Auto (Bld) [Volum e fraction]on 05-02-2022 Hematocrit (Bld) [Volume fraction] 38.7 % 37-47 [facility] Work Phone: Laboratory - Chemistry and C hemistry - challengeon 05-02-2022 CO2 [Moles/Vol] 29.0 mmol/L 21.0-32.0 [facility] Work Phone: Urea nitrogen/Creatinine [Mass ratio] 21.2 mg/mg 10-20 [facility] Work Phone: Laboratory - Hematology and Cell countson 05-02-2022 Erythrocyte distribution width (RBC) [Entitic vol] 46.5 fL 35.1-43.9 [facility] Work Phone: Erythrocyte distribution width (RBC) [Ratio] 13.2 % 11.6-14.6 [facility] Work Phone: MCH (RBC) [Entitic mass] 29.8 pg 27.0-32.0 [facility] Work Phone: MCHC Auto (RBC) [Mass/Vol]on 05-02-2022 MCHC (RBC) [Mass/Vol] 31.3 g/dL 32-36 [facility] Work Phone: No Panel Informationon 05-02 Estimated GFR (MDRD) Amer 35 mL/min >60 [facility] Work Phone: Comment on above: GFR Calc Estimated GFR (MDRD) Non-Af Amer 29 mL/min >60 [facility] Work Phone: Comment on above: Non- GFR Calc Parathyroid Hormone (Intact) 40.1 pg/mL 18.4-80.1 [facility] Work Phone: Platelets bldon 05-02-2022 Platelets (Bld) [#/Vol] 268 10*3/uL 150-450 [facility] Work Phone: Serum or plasma albumin lesly urement (mass/volume)on 05-02-2022 Albumin [Mass/Vol] 3.4 g/dL 3.2-5.0 [facility] Work Phone: Serum or plasma calcium lesly urement (mass/volume)on 05-02-2022 Calcium [Mass/Vol] 9.7 mg/dL 8.5-10.1 [facility] Work Phone: Serum or plasma creatinine m easurement (mass/volume)on 05-02-2022 Creatinine [Mass/Vol] 1.89 mg/dL 0.55-1.02 [facility] Work [facility]: Comment on above: The validity of the calculated GFR & GFRAA in patients over 70 years has not been determined. Clinical correlation is essential. Serum or plasma urea nitroge n measurement (mass/volume)on 05-02-2022 Urea nitrogen [Mass/Vol] 40 mg/dL 7-18 [facility] Work Phone: Urine creatinine measurement (mass/volume)on 05-02-2022 Creatinine (U) [Mass/Vol] 72.60 mg/dL NO RANGE EST. [facility] Work Phone: Urine protein measurement (m ass/volume)on 05-02-2022 Protein (U) [Mass/Vol] 114.6 mg/dL 0.0-11.8 [facility] Work Phone: Urine protein/creatinine mas s ratioon 05-02-2022 Protein/Creatinine (U) [Mass ratio] 1579 mg/g CRE 0-200 [facility] Work Phone: Absolute lymphocyte counton 02-08-2022 Lymphocytes Auto (Unsp spec) [#/Vol] 1.86 10*3/uL 0.83-4.51 [facility] Work Phone: Basophil percentageon 2021 Amylase [Catalytic activity/Vol] 57 U/L 25-115 [facility] Work Phone: Basophils/100 WBC (Bld) 0.7 % 0-1 [facility] Work Phone: Bilirubin [Mass/Vol] 0.30 mg/dL 0.20-1.00 [facility] Work Phone: Comment on above: For patients on eltr ombopag therapy, use of Dimension [employer] TBIL is not recommended. Chloride [Moles/Vol] 106 mmol/L 98-107 [facility] Work Phone: Eosinophils/100 WBC (Bld) 5.6 % 0-5 [facility] Work Phone: Glucose [Mass/Vol] 180 mg/dL 74-106 [facility] Work Phone: Comment on above: Fasting Glucose resu lt greater than or equal to 126 mg/dL suggests DIABETES MELLITUS per A.D.A. criteria. Neutrophils (Bld) [#/Vol] 5.1 10*3/uL 2.0-7.7 [facility] Work Phone: Neutrophils/100 WBC (Bld) 63.4 % 47-70 [facility] Work Phone: Potassium [Moles/Vol] 5.1 mmol/L 3.5-5.1 [facility] Work Phone: Protein [Mass/Vol] 7.7 g/dL 6.4-8.2 [facility] Work Phone: Sodium [Moles/Vol] 136 mmol/L 136-145 [facility] Work Phone: WBC (Bld) [#/Vol] 8.1 10*3/uL 4.4-11.0 [facility] Work Phone: Blood erythrocytes count (nu mber/volume)on 02-08-2022 RBC (Bld) [#/Vol] 4.10 10*6/uL 4.2-5.4 [facility] Work Phone: Blood hemoglobin measurement (mass/volume)on 02-08-2022 Hemoglobin (Bld) [Mass/Vol] 11.9 g/dL 12.0-15.0 [facility] Work Phone: Blood lymphocytes/100 leukoc yteson 02-08-2022 Lymphocytes/100 WBC (Bld) 23.0 % 19-41 [facility] Work Phone: Blood monocytes/100 leukocyt eson 02-08-2022 Monocytes/100 WBC (Bld) 6.9 % 0-10 [facility] Work Phone: Blood platelet mean volumeon 02-08-2022 Platelet mean volume (Bld) [Entitic vol] 9.9 fL 6.2-12.0 [facility] Work Phone: Determination of erythrocyte mean corpuscular volume (MCV)on 02-08-2022 MCV (RBC) [Entitic vol] 94.1 fL 81-99 [facility] Work Phone: Hematocrit Auto (Bld) [Volum e fraction]on 02-08-2022 Hematocrit (Bld) [Volume fraction] 38.6 % 37-47 [facility] Work Phone: Laboratory - Chemistry and C hemistry - challengeon 02-08-2022 ALP [Catalytic activity/Vol] 87 U/L 45-117 [facility] Work Phone: ALT [Catalytic activity/Vol] 16 U/L 13-56 [facility] Work Phone: CO2 [Moles/Vol] 27.0 mmol/L 21.0-32.0 [facility] Work Phone: Globulin (S) [Mass/Vol] 4.3 g/dL 2.2-4.2 [facility] Work Phone: Lipase [Catalytic activity/Vol] 55 U/L 73-393 [facility] Work Phone: Urea nitrogen/Creatinine [Mass ratio] 20.6 mg/mg 10-20 [facility] Work Phone: Laboratory - Hematology and Cell countson 02-08-2022 Erythrocyte distribution width (RBC) [Entitic vol] 46.5 fL 35.1-43.9 [facility] Work Phone: Erythrocyte distribution width (RBC) [Ratio] 13.3 % 11.6-14.6 [facility] Work Phone: Immature granulocytes/100 WBC (Bld) 0.400 % 0.0-0.9 [facility] Work Phone: Comment on above: IG% - Immature Granu locytes (promyelocytes, myelocytes and metamyelocytes) > 1% indicates that a LEFT SHIFT is Present. MCH (RBC) [Entitic mass] 29.0 pg 27.0-32.0 [facility] Work Phone: Nucleated RBC/100 WBC (Bld) [Ratio] 0 % 0-5 [facility] Work Phone: MCHC Auto (RBC) [Mass/Vol]on 02-08-2022 MCHC (RBC) [Mass/Vol] 30.8 g/dL 32-36 [facility] Work Phone: No Panel Informationon 02-08 Estimated GFR (MDRD) Amer 28 mL/min >60 [facility] Work Phone: Comment on above: GFR Calc Estimated GFR (MDRD) Non-Af Amer 23 mL/min >60 [facility] Work Phone: Comment on above: Non- GFR Calc Platelets bldon 02-08-2022 Platelets (Bld) [#/Vol] 235 10*3/uL 150-450 [facility] Work Phone: Serum or plasma albumin lesly urement (mass/volume)on 02-08-2022 Albumin [Mass/Vol] 3.4 g/dL 3.2-5.0 [facility] Work Phone: Serum or plasma albumin/glob ulin mass ratioon 02-08-2022 Albumin/Globulin [Mass ratio] 0.8 {ratio} 0.9-2.4 [facility] Work Phone: Serum or plasma calcium lesly urement (mass/volume)on 02-08-2022 Calcium [Mass/Vol] 9.6 mg/dL 8.5-10.1 [facility] Work Phone: Serum or plasma creatinine m easurement (mass/volume)on 02-08-2022 Creatinine [Mass/Vol] 2.28 mg/dL 0.55-1.02 [facility] Work Phone: Comment on above: The validity of the calculated GFR & GFRAA in patients over 70 years has not been determined. Clinical correlation is essential. Serum or plasma urea nitroge n measurement (mass/volume)on 02-08-2022 Urea nitrogen [Mass/Vol] 47 mg/dL 7-18 [facility] Work Phone: Thin prep Papanicolaou smear with manual screeningon 02-08-2022 Thin prep Papanicolaou smear with manual screening 16 U/L 15-37 [facility] Work Phone: Thin prep Papanicolaou smear with manual screening 3 5-15 [facility] Work Phone: Laboratory - Hematology and Cell countson 01-10-2022 HbA1c (Bld) [Mass fraction] 7.9 % [facility] Work Phone: Basophil percentageon 2021 Basophil percentage 4.8 mg/dL 2.5-4.9 [facility] Work Phone: Chloride [Moles/Vol] 108 mmol/L 98-107 [facility] Work Phone: Glucose [Mass/Vol] 204 mg/dL 74-106 [facility] Work Phone: Comment on above: Glucose result great er than or equal to 200 mg/dLsuggests DIABETES MELLITUS per A.D.A. criteria. Potassium [Moles/Vol] 4.7 mmol/L 3.5-5.1 [facility] Work Phone: Sodium [Moles/Vol] 138 mmol/L 136-145 [facility] Work Phone: WBC (Bld) [#/Vol] 7.8 10*3/uL 4.4-11.0 [facility] Work Phone: Blood erythrocytes count (nu mber/volume)on 12-24-2021 RBC (Bld) [#/Vol] 3.67 10*6/uL 4.2-5.4 [facility] Work Phone: Blood hemoglobin measurement (mass/volume)on 12-24-2021 Hemoglobin (Bld) [Mass/Vol] 10.9 g/dL 12.0-15.0 [facility] Work Phone: Blood platelet mean volumeon 12-24-2021 Platelet mean volume (Bld) [Entitic vol] 9.8 fL 6.2-12.0 [facility] Work Phone: Determination of erythrocyte mean corpuscular volume (MCV)on 12-24-2021 MCV (RBC) [Entitic vol] 92.1 fL 81-99 [facility] Work Phone: Hematocrit Auto (Bld) [Volum e fraction]on 12-24-2021 Hematocrit (Bld) [Volume fraction] 33.8 % 37-47 [facility] Work Phone: Laboratory - Chemistry and C hemistry - challengeon 12-24-2021 CO2 [Moles/Vol] 25.0 mmol/L 21.0-32.0 [facility] Work Phone: Urea nitrogen/Creatinine [Mass ratio] 23.2 mg/mg 10-20 [facility] Work Phone: Laboratory - Hematology and Cell countson 12-24-2021 Erythrocyte distribution width (RBC) [Entitic vol] 47.2 fL 35.1-43.9 [facility] Work Phone: Erythrocyte distribution width (RBC) [Ratio] 14.0 % 11.6-14.6 [facility] Work Phone: MCH (RBC) [Entitic mass] 29.7 pg 27.0-32.0 [facility] Work Phone: MCHC Auto (RBC) [Mass/Vol]on 12-24-2021 MCHC (RBC) [Mass/Vol] 32.2 g/dL 32-36 [facility] Work Phone: No Panel Informationon 12-24 Estimated GFR (MDRD) Amer 36 mL/min >60 [facility] Work Phone: Comment on above: GFR Calc Estimated GFR (MDRD) Non-Af Amer 29 mL/min >60 [facility] Work Phone: Comment on above: Non- GFR Calc Parathyroid Hormone (Intact) 55.7 pg/mL 18.4-80.1 [facility] Work Phone: Vitamin D 25-Hydroxy 45.6 ng/mL [facility] Work Phone: Comment on above: Vitamin D 25(OH) Sta tus Range Deficiency <20 ng/mL (50nmol/L) Insufficiency 20 - 30 ng/mL (50 - 75 nmol/L) Sufficiency 30 - 100 ng/mL (75 - 250 nmol/L) Toxicity >100 ng/mL (>250 nmol/L) Platelets bldon 12-24-2021 Platelets (Bld) [#/Vol] 225 10*3/uL 150-450 [facility] Work Phone: Serum or plasma albumin lesly urement (mass/volume)on 12-24-2021 Albumin [Mass/Vol] 3.2 g/dL 3.2-5.0 [facility] Work Phone: Serum or plasma calcium lesly urement (mass/volume)on 12-24-2021 Calcium [Mass/Vol] 8.9 mg/dL 8.5-10.1 [facility] Work Phone: Serum or plasma creatinine m easurement (mass/volume)on 12-24-2021 Creatinine [Mass/Vol] 1.85 mg/dL 0.55-1.02 [facility] Work Phone: Comment on above: The validity of the calculated GFR & GFRAA in patients over 70 years has not been determined. Clinical correlation is essential. Serum or plasma urea nitroge n measurement (mass/volume)on 12-24-2021 Urea nitrogen [Mass/Vol] 43 mg/dL 7-18 [facility] Work Phone: Basophil percentageon 2021 Bilirubin [Mass/Vol] 0.30 mg/dL 0.20-1.00 [facility] Work Phone: Comment on above: For patients on eltr ombopag therapy, use of Dim[employer] TBIL is not recommended. Chloride [Moles/Vol] 104 mmol/L 98-107 [facility] Work Phone: Cholesterol [Mass/Vol] 119 mg/dL <200 [facility] Work Phone: Comment on above: <200 mg/dL Desirable 200-240 mg/dL Borderline >240 mg/dL High Risk Glucose [Mass/Vol] 293 mg/dL 74-106 [facility] Work Phone: Comment on above: Glucose result great er than or equal to 200 mg/dLsuggests DIABETES MELLITUS per A.D.A. criteria. Potassium [Moles/Vol] 5.0 mmol/L 3.5-5.1 [facility] Work Phone: Protein [Mass/Vol] 7.2 g/dL 6.4-8.2 [facility] Work Phone: Sodium [Moles/Vol] 136 mmol/L 136-145 [facility] Work Phone: Triglyceride [Mass/Vol] 79 mg/dL [facility] Work Phone: Comment on above: The drugs N-Acetylcy steine and Metamizole may falsely depress this assay.Serum Triglycerides Reference Interval Normal <150 mg/dL Borderline high 150 - 199 mg/dL High 200 - 499 mg/dL Very High > or = 500 mg/dL WBC (Bld) [#/Vol] 6.4 10*3/uL 4.4-11.0 [facility] Work Phone: Blood erythrocytes count (nu mber/volume)on 12-19-2021 RBC (Bld) [#/Vol] 3.58 10*6/uL 4.2-5.4 [facility] Work Phone: Blood hemoglobin measurement (mass/volume)on 12-19-2021 Hemoglobin (Bld) [Mass/Vol] 10.4 g/dL 12.0-15.0 [facility] Work Phone: Blood platelet mean volumeon 12-19-2021 Platelet mean volume (Bld) [Entitic vol] 10.6 fL 6.2-12.0 [facility] Work Phone: Determination of erythrocyte mean corpuscular volume (MCV)on 12-19-2021 MCV (RBC) [Entitic vol] 93.9 fL 81-99 [facility] Work Phone: Hematocrit Auto (Bld) [Volum e fraction]on 12-19-2021 Hematocrit (Bld) [Volume fraction] 33.6 % 37-47 [facility] Work Phone: Iron measurement (mass/mass) on 12-19-2021 Iron (Unsp spec) [Mass/Mass] 50 ug/dL 50-170 [facility] Work Phone: Laboratory - Chemistry and C hemistry - challengeon 12-19-2021 ALP [Catalytic activity/Vol] 90 U/L 45-117 [facility] Work Phone: ALT [Catalytic activity/Vol] 21 U/L 13-56 [facility] Work Phone: CO2 [Moles/Vol] 26.0 mmol/L 21.0-32.0 [facility] Work Phone: Globulin (S) [Mass/Vol] 4.1 g/dL 2.2-4.2 [facility] Work Phone: Urea nitrogen/Creatinine [Mass ratio] 22.0 mg/mg 10-20 [facility] Work Phone: Laboratory - Hematology and Cell countson 12-19-2021 Erythrocyte distribution width (RBC) [Entitic vol] 47.5 fL 35.1-43.9 [facility] Work Phone: Erythrocyte distribution width (RBC) [Ratio] 13.8 % 11.6-14.6 [facility] Work Phone: MCH (RBC) [Entitic mass] 29.1 pg 27.0-32.0 [facility] Work Phone: MCHC Auto (RBC) [Mass/Vol]on 12-19-2021 MCHC (RBC) [Mass/Vol] 31.0 g/dL 32-36 [facility] Work Phone: No Panel Informationon 12-19 Estimated GFR (MDRD) Amer 35 mL/min >60 [facility] Work Phone: Comment on above: GFR Calc Estimated GFR (MDRD) Non-Af Amer 29 mL/min >60 [facility] Work Phone: Comment on above: Non- GFR Calc Parathyroid Hormone (Intact) 59.6 pg/mL 18.4-80.1 [facility] Work Phone: Thyroid Stimulating Hormone (TSH) 1.48 uIU/mL 0.358-3.74 [facility] Work Phone: Vitamin D 25-Hydroxy 46.2 ng/mL [facility] Work Phone: Comment on above: Vitamin D 25(OH) Sta tus Range Deficiency <20 ng/mL (50nmol/L) Insufficiency 20 - 30 ng/mL (50 - 75 nmol/L) Sufficiency 30 - 100 ng/mL (75 - 250 nmol/L) Toxicity >100 ng/mL (>250 nmol/L) Platelets bldon 12-19-2021 Platelets (Bld) [#/Vol] 237 10*3/uL 150-450 [facility] Work Phone: Serum or plasma albumin lesly urement (mass/volume)on 12-19-2021 Albumin [Mass/Vol] 3.1 g/dL 3.2-5.0 [facility] Work Phone: Serum or plasma albumin/glob ulin mass ratioon 12-19-2021 Albumin/Globulin [Mass ratio] 0.8 {ratio} 0.9-2.4 [facility] Work Phone: Serum or plasma calcium lesly urement (mass/volume)on 12-19-2021 Calcium [Mass/Vol] 8.8 mg/dL 8.5-10.1 [facility] Work Phone: Serum or plasma cholesterol in HDL measurement (mass/volume)on 12-19-2021 Cholesterol in HDL [Mass/Vol] 59 mg/dL [facility] Work Phone: Comment on above: The drugs N-Acetylcy steine and Metamizole may falsely depress this assay. Reference Range HDL <40 mg/dL Low HDL Cholesterol HDL >or= 60 mg/dL High HDL Cholesterol Serum or plasma cholesterol in VLDL measurement (mass/volume)on 12-19-2021 Cholesterol in VLDL [Mass/Vol] 16 mg/dL 5-40 [facility] Work Phone: Serum or plasma creatinine m easurement (mass/volume)on 12-19-2021 Creatinine [Mass/Vol] 1.86 mg/dL 0.55-1.02 [facility] Work Phone: Comment on above: The validity of the calculated GFR & GFRAA in patients over 70 years has not been determined. Clinical correlation is essential. Serum or plasma ferritin allyn surement (mass/volume)on 12-19-2021 Ferritin [Mass/Vol] 38 ng/mL 8-252 [facility] Work Phone: Serum or plasma low density lipoprotein (LDL) cholesterol measurement (mass/volume)on 12-19-2021 Cholesterol in LDL [Mass/Vol] 44 mg/dL 0-130 [facility] Work Phone: Serum or plasma urea nitroge n measurement (mass/volume)on 12-19-2021 Urea nitrogen [Mass/Vol] 41 mg/dL 7-18 [facility] Work Phone: Thin prep Papanicolaou smear with manual screeningon 12-19-2021 Thin prep Papanicolaou smear with manual screening 15 U/L 15-37 [facility] Work Phone: Thin prep Papanicolaou smear with manual screening 6 5-15 [facility] Work Phone: Office Visit: Diabetes follo w upon 03-05-2017 Dietary management education, guidance, and counseling (procedure) yes Invalid Interpretation Code [facility] Work Phone: Documentation of current medications (procedure) Done Invalid Interpretation Code [facility] Work Phone: Fall risk assessment Fall risk assessment Invali d Interpretation Code [facility] Work Phone: Smoking cessation education (procedure) yes Invalid Interpretation Code [facility] Work Phone: Tobacco smoking status NHIS Former Invalid Interpretation Code [facility] Work Phone: Tobacco use [facility] Current every day smoker Invalid Interpretation Code [facility] Work Phone: Office Visit: Diabetic Evalu ationon 02-18-2017 Adolescent depression screening assessment Adolescent depression screening assessment Invalid Interpretation Code [facility] Work Phone: Fall risk assessment No Invalid Interpretation Code [facility] Work Phone: Chart Maintenanceon 01-08-20 17 HbA1c 10.0 % Invalid Interpretation Code [facility] Work Phone: Office Visit: Diabetic Evalu ationon 11-04-2011 General categories [interpretation] of Cervical or vaginal smear or scraping by Cyto stain Hysteectomy Invalid Interpretation Code [facility] Work Phone: Vital Signs Date Time Vital Sign Value Performing Clinician Facility 05-18-2025 07:26-0400 Body mass index (BMI) [Ratio] 16 kg/m2 Dr. Bird Lujan MD Work Phone: [facility] 05-18-2025 07:26-0400 Body temperature 97.2 [degF] Dr. Bird Lujan MD Work Phone: [facility] 05-18-2025 07:26-0400 Body weight 44.[address] Bird Lujan MD Work Phone: [facility] 05-18-2025 07:26-0400 Diastolic blood pressure 59 mm[Hg] Dr. Bird Lujan MD Work Phone: [facility] 05-18-2025 07:26-0400 Heart rate 56 /min Dr. Bird Lujan MD Work Phone: [phone] [place] [address] 05-18-2025 07:26-0400 Inhaled oxygen flow rate 3 L/min Dr. Bird Lujna MD Work Phone: [phone])[phone] [place] [address] 05-18-2025 07:26-0400 Respiratory rate 16 /min Dr. Bird Lujan MD Work Phone: [phone])998-334318 [place] [address] 05-18-2025 07:26-0400 SaO2% (BldA) [Mass fraction] 95 % Dr. Bird Lujan MD Work Phone: 1(677)432-992618 [place] [address] 05-18-2025 07:26-0400 Systolic blood pressure 142 mm[Hg] Dr. Bird Lujan MD Work Phone: 3(085)686-951518 [place] [address] 05-08-2025 12:50-0400 Body temperature 98.6 [degF] Dr. Bird Lujan MD Work Phone: 5([phone])[phone] [place] [address] 05-08-2025 12:50-0400 Diastolic blood pressure 65 mm[Hg] Dr. Bird Lujan MD Work Phone: 2([phone] [place] [address] 05-08-2025 12:50-0400 Heart rate 61 /min Dr. Bird Lujan MD Work Phone: 6(049)075-423918 [place] [address] 05-08-2025 12:50-0400 Respiratory rate 16 /min Dr. Bird Lujan MD Work Phone: 3([phone] [place] [address] 05-08-2025 12:50-0400 SaO2% (BldA) [Mass fraction] 100 % Dr. Bird Lujan MD Work Phone: [phone](735)[phone] [place] [address] 05-08-2025 12:50-0400 Systolic blood pressure 171 mm[Hg] Dr. Bird Lujan MD Work Phone: 8([phone])244-813718 [place] [address] 05-08-2025 09:13-0400 Inhaled oxygen flow rate 2 L/min Dr. Bird Lujan MD Work Phone: [phone] [place] [address] 05-08-2025 08:01-0400 Body height 167.[address] Bird Lujan MD Work Phone: [facility] 05-08-2025 08:01-0400 Body mass index (BMI) [Ratio] 16.3 kg/m2 Dr. Bird Lujan MD Work Phone: [facility] 05-08-2025 08:01-0400 Body weight [address] Bird Lujan MD Work Phone: [facility] 04-09-2025 13:59-0400 Body temperature 97.8 [degF] Dr. Bird Lujan MD Work Phone: [facility] 04-09-2025 13:59-0400 Diastolic blood pressure 78 mm[Hg] Dr. Bird Lujan MD Work Phone: [facility] 04-09-2025 13:59-0400 Heart rate 50 /min Dr. Bird Lujan MD Work Phone: [facility] 04-09-2025 13:59-0400 Respiratory rate 16 /min Dr. Bird Lujan MD Work Phone: [facility] 04-09-2025 13:59-0400 SaO2% (BldA) [Mass fraction] 100 % Dr. Bird Lujan MD Work Phone: [facility] 04-09-2025 13:59-0400 Systolic blood pressure 163 mm[Hg] Dr. Bird Lujan MD Work Phone: [facility] 04-09-2025 12:22-0400 Body height 167.[address] Bird Lujan MD Work Phone: [facility] 04-09-2025 12:22-0400 Inhaled oxygen flow rate 3 L/min Dr. Bird Lujan MD Work Phone: [facility] 03-22-2025 13:04-0400 Body height 167.[address] Christy Huerta DO Work Phone: [facility] 03-22-2025 13:04-0400 Body temperature 98.2 [degF] Dr. Christy Huerta DO Work Phone: [facility] 03-22-2025 13:04-0400 Diastolic blood pressure 66 mm[Hg] Dr. Christy Huerta DO Work Phone: [facility] 03-22-2025 13:04-0400 Heart rate 55 /min Dr. Christy Huerta DO Work Phone: [facility] 03-22-2025 13:04-0400 Respiratory rate 16 /min Dr. Christy Huerta DO Work Phone: [facility] 03-22-2025 13:04-0400 SaO2% (BldA) [Mass fraction] 100 % Dr. Christy Huerta DO Work Phone: [facility] 03-22-2025 13:04-0400 Systolic blood pressure 177 mm[Hg] Dr. Christy Huerta DO Work Phone: [facility] 01-27-2025 08:42-0400 Body mass index (BMI) [Ratio] 17.2 kg/m2 Dr. Christy Huerta DO Work Phone: [facility] [facility] 01-27-2025 08:42-0400 Body weight 48.[address] Christy Huerta DO Work Phone: [facility] 01-27-2025 08:42-0400 Diastolic blood pressure 72 mm[Hg] Dr. Christy Huerta DO Work Phone: [facility] 01-27-2025 08:42-0400 Heart rate 65 /min Dr. Christy Huerta DO Work Phone: [facility] 01-27-2025 08:42-0400 Inhaled oxygen flow rate 3 L/min Dr. Christy Huerta DO Work Phone: [facility] 01-27-2025 08:42-0400 SaO2% (BldA) [Mass fraction] 99 % Dr. Christy Huerta DO Work Phone: [facility] 01-27-2025 08:42-0400 Systolic blood pressure 172 mm[Hg] Dr. Christy Huerta DO Work Phone: [facility] 01-11-2025 15:17-0400 Body temperature 97.8 [degF] Dr. Bird Lujan MD Work Phone: [facility] 01-11-2025 15:17-0400 Body weight 50.[address] Bird Lujan MD Work Phone: [facility] 01-11-2025 15:17-0400 Diastolic blood pressure 52 mm[Hg] Dr. Bird Lujan MD Work Phone: [facility] 01-11-2025 15:17-0400 Heart rate 60 /min Dr. Bird Lujan MD Work Phone: [facility] 01-11-2025 15:17-0400 Inhaled oxygen flow rate 3 L/min Dr. Bird Lujan MD Work Phone: [facility] 01-11-2025 15:17-0400 Respiratory rate 16 /min Dr. Bird Lujan MD Work Phone: [facility] 01-11-2025 15:17-0400 SaO2% (BldA) [Mass fraction] 100 % Dr. Bird Lujan MD Work Phone: [facility] 01-11-2025 15:17-0400 Systolic blood pressure 125 mm[Hg] Dr. Bird Lujan MD Work Phone: [facility] 01-10-2025 09:10-0400 Body height 167.[address] Bird Lujan MD Work Phone: [facility] 01-06-2025 09:46-0500 Inhaled oxygen flow rate 2 L/min Dr. Bird Lujan MD Work Phone: [facility] 01-06-2025 08:32-0500 Heart rate 65 /min Dr. Bird Lujan MD Work Phone: 5(807)850-924118 [place] [address] 01-06-2025 08:27-0500 Body temperature 97.6 [degF] Dr. Bird Lujan MD Work Phone: 0(799)538-964218 [place] [address] 01-06-2025 08:27-0500 Diastolic blood pressure 54 mm[Hg] Dr. Bird Lujan MD Work Phone: 6(755)131-325318 [place] [address] 01-06-2025 08:27-0500 Respiratory rate 18 /min Dr. Bird Lujan MD Work Phone: 1(417)046-217418 [place] [address] 01-06-2025 08:27-0500 SaO2% (BldA) [Mass fraction] 99 % Dr. Bird Lujan MD Work Phone: 3(811)965-538018 [place] [address] 01-06-2025 08:27-0500 Systolic blood pressure 143 mm[Hg] Dr. Bird Lujan MD Work Phone: 4(646)962-791318 [place] [address] 01-05-2025 16:00-0500 Body mass index (BMI) [Ratio] 16.5 kg/m2 Dr. Bird Lujan MD Work Phone: 5(057)909-648218 [place] [address] 01-05-2025 16:00-0500 Body weight 46.[address] Bird Lujan MD Work Phone: 3(753)115-257518 [place] [address] 01-05-2025 14:33-0500 Inhaled oxygen concentration 30 % Dr. Bird Lujan MD Work Phone: 6(363)902-195018 [place] [address] 12-28-2024 19:34-0500 Body temperature 97.7 [degF] Dr. Bird Lujan MD Work Phone: 8(908)987-307518 [place] [address] 12-28-2024 19:34-0500 Diastolic blood pressure 54 mm[Hg] Dr. Bird Lujan MD Work Phone: 0(674)404-807418 [place] [address] 12-28-2024 19:34-0500 Heart rate 61 /min Dr. Bird Lujan MD Work Phone: 8(924)897-006418 [place] [address] 12-28-2024 19:34-0500 Respiratory rate 16 /min Dr. Bird Lujan MD Work Phone: [facility] 12-28-2024 19:34-0500 SaO2% (BldA) [Mass fraction] 100 % Dr. Bird Lujan MD Work Phone: [facility] 12-28-2024 19:34-0500 Systolic blood pressure 118 mm[Hg] Dr. Bird Lujan MD Work Phone: 1(242)361-072149 [place] [address] 12-28-2024 13:56-0500 Inhaled oxygen flow rate 6 L/min Dr. Bird Lujan MD Work Phone: 2(158)039-029518 [place] [address] 12-28-2024 10:12-0500 Body mass index (BMI) [Ratio] 17.8 kg/m2 Dr. Bird Lujan MD Work Phone: 9(328)760-439218 [place] [address] 12-28-2024 10:12-0500 Body weight [address] Bird Lujan MD Work Phone: 9(940)411-077918 [place] [address] 12-16-2024 13:53-0500 Body mass index (BMI) [Ratio] 17.4 kg/m2 Dr. Bird Lujan MD Work Phone: 9(436)772-270118 [place] [address] 12-16-2024 13:53-0500 Body weight 48.[address] Bird Lujan MD Work Phone: 1(923)849-819718 [place] [address] 12-16-2024 13:53-0500 Diastolic blood pressure 71 mm[Hg] Dr. Bird Lujan MD Work Phone: 4(783)214-977349 [place] [address] 12-16-2024 13:53-0500 Heart rate 61 /min Dr. Bird Lujan MD Work Phone: 8(151)253-989418 [place] [address] 12-16-2024 13:53-0500 Inhaled oxygen flow rate 3 L/min Dr. Bird Lujan MD Work Phone: 4(279)431-465218 [place] [address] 12-16-2024 13:53-0500 Respiratory rate 18 /min Dr. Bird Lujan MD Work Phone: 4(556)137-596118 [address] 12-16-2024 13:53-0500 SaO2% (BldA) [Mass fraction] 100 % Dr. Bird Lujan MD Work Phone: [facility] 12-16-2024 13:53-0500 Systolic blood pressure 164 mm[Hg] Dr. Bird Lujan MD Work Phone: [facility] 12-02-2024 14:48-0500 Body temperature 98.4 [degF] Dr. Bird Lujan MD Work Phone: [facility] 12-02-2024 14:48-0500 Body weight 49.[address] Bird Lujan MD Work Phone: 9(161)431-056549 [place] [address] 12-02-2024 14:48-0500 Diastolic blood pressure 65 mm[Hg] Dr. Bird Lujan MD Work Phone: 8(233)330-282449 [place] [address] 12-02-2024 14:48-0500 Heart rate 65 /min Dr. Bird Lujan MD Work Phone: [facility] 12-02-2024 14:48-0500 Inhaled oxygen flow rate 3 L/min Dr. Bird Lujan MD Work Phone: [facility] 12-02-2024 14:48-0500 Respiratory rate 16 /min Dr. Bird Lujan MD Work Phone: [facility] 12-02-2024 14:48-0500 SaO2% (BldA) [Mass fraction] 99 % Dr. Bird Lujan MD Work Phone: [facility] 12-02-2024 14:48-0500 Systolic blood pressure 161 mm[Hg] Dr. Bird Lujan MD Work Phone: [facility] 11-20-2024 23:26-0500 Body temperature 98.3 [degF] Dr. Bird Lujan MD Work Phone: [facility] 11-20-2024 23:26-0500 Diastolic blood pressure 49 mm[Hg] Dr. Bird Lujan MD Work Phone: [facility] 11-20-2024 23:26-0500 Heart rate 73 /min Dr. Bird Lujan MD Work Phone: 3(389)384-140149 [place] [address] 11-20-2024 23:26-0500 Respiratory rate 19 /min Dr. Bird Lujan MD Work Phone: 5(899)179-850118 [address] 11-20-2024 23:26-0500 SaO2% (BldA) [Mass fraction] 100 % Dr. Bird Lujan MD Work Phone: 1(922)209-185318 [address] 11-20-2024 23:26-0500 Systolic blood pressure 119 mm[Hg] Dr. Bird Lujan MD Work Phone: 8(152)472-658149 [place] [address] 11-20-2024 18:44-0500 Body mass index (BMI) [Ratio] 17.9 kg/m2 Dr. Bird Lujan MD Work Phone: 4(238)822-444618 [place] [address] 11-20-2024 18:44-0500 Body weight 50.[address] Bird Lujan MD Work Phone: 1(371)803-803218 [address] 11-20-2024 18:44-0500 Inhaled oxygen flow rate 3 L/min Dr. Bird Lujan MD Work Phone: 7(309)140-352718 [place] [address] 11-04-2024 16:07-0500 Body mass index (BMI) [Ratio] 18.1 kg/m2 Dr. Bird Lujan MD Work Phone: 5(130)246-410849 [place] [address] 11-04-2024 16:07-0500 Body temperature 97.2 [degF] Dr. Bird Lujan MD Work Phone: 1(339)557-764718 [place] [address] 11-04-2024 16:07-0500 Body weight 50.[address] Bird Lujan MD Work Phone: 5(539)142-942749 [place] [address] 11-04-2024 16:07-0500 Diastolic blood pressure 84 mm[Hg] Dr. Bird Lujan MD Work Phone: 4(965)944-764349 [place] [address] 11-04-2024 16:07-0500 Heart rate 72 /min Dr. Bird Lujan MD Work Phone: 8(431)308-475149 [place] [address] 11-04-2024 16:07-0500 Respiratory rate 15 /min Dr. Bird Lujan MD Work Phone: 5(765)028-386449 [place] [address] 11-04-2024 16:07-0500 SaO2% (BldA) [Mass fraction] 100 % Dr. Bird Lujan MD Work Phone: 8(810)976-147449 [place] [address] 11-04-2024 16:07-0500 Systolic blood pressure 194 mm[Hg] Dr. Bird Lujan MD Work Phone: 5(642)275-981818 [place] [address] 11-04-2024 15:51-0500 Diastolic blood pressure 82 mm[Hg] Dr. Bird Lujan MD Work Phone: 1(026)294-879018 [place] [address] 11-04-2024 15:51-0500 Systolic blood pressure 218 mm[Hg] Dr. Bird Lujan MD Work Phone: 4(255)959-983549 [place] [address] 11-04-2024 08:00-0500 Body mass index (BMI) [Ratio] 18.1 kg/m2 Dr. Bird Lujan MD Work Phone: 0(176)281-431249 [place] [address] 11-04-2024 08:00-0500 Body temperature 97.4 [degF] Dr. Bird Lujan MD Work Phone: 3(975)137-785449 [place] [address] 11-04-2024 08:00-0500 Body weight 50.[address] Bird Lujan MD Work Phone: 5(190)344-811749 [place] [address] 11-04-2024 08:00-0500 Heart rate 75 /min Dr. Bird Lujan MD Work Phone: 8(955)713-203118 [place] [address] 11-04-2024 08:00-0500 Inhaled oxygen flow rate 3 L/min Dr. Bird Lujan MD Work Phone: 3(605)632-745949 [place] [address] 11-04-2024 08:00-0500 Respiratory rate 20 /min Dr. Bird Lujan MD Work Phone: [facility] 11-04-2024 08:00-0500 SaO2% (BldA) [Mass fraction] 99 % Dr. Bird Lujan MD Work Phone: [facility] 10-07-2024 13:43-0500 Body mass index (BMI) [Ratio] 16.8 kg/m2 Dr. Bird Lujan MD Work Phone: [facility] 10-07-2024 13:43-0500 Body weight 47.[address] Bird Lujan MD Work Phone: [facility] 10-07-2024 13:43-0500 Diastolic blood pressure 73 mm[Hg] Dr. Bird Lujan MD Work Phone: [facility] 10-07-2024 13:43-0500 Heart rate 76 /min Dr. Bird Lujan MD Work Phone: [facility] 10-07-2024 13:43-0500 Inhaled oxygen flow rate 3 L/min Dr. Bird Lujan MD Work Phone: [facility] 10-07-2024 13:43-0500 SaO2% (BldA) [Mass fraction] 100 % Dr. Bird Lujan MD Work Phone: [facility] 10-07-2024 13:43-0500 Systolic blood pressure 172 mm[Hg] Dr. Bird Lujan MD Work Phone: [facility] 08-24-2024 15:33-0400 Heart rate 83 /min [facility] DO Work Phone: [facility] 08-24-2024 15:33-0400 Respiratory rate 12 /min [employer] DO Work Phone: [facility] 08-24-2024 15:33-0400 SaO2% (BldA) [Mass fraction] 99 % [employer] DO Work Phone: [facility] 08-24-2024 07:34-0400 Body temperature 97.9 [degF] Lucina Galvan DO Work Phone: [facility] [employer] 08-24-2024 07:34-0400 Diastolic blood pressure 58 mm[Hg] Lucina Galvan DO Work Phone: [facility] [employer] 08-24-2024 07:34-0400 Systolic blood pressure 141 mm[Hg] Lucina Galvan DO Work Phone: [facility] [employer] 08-24-2024 06:00-0400 Body mass index (BMI) [Ratio] 19.43 kg/m2 Lucina Galvan DO Work Phone: [facility] [employer] 08-24-2024 06:00-0400 Body weight 54.6 kg Lucina Galvan DO Work Phone: [facility] [employer] 08-22-2024 23:29-0400 Body height 167.6 cm Lucina Galvan DO Work Phone: [facility] [employer] 08-21-2024 15:09-0400 SaO2% (BldA) [Mass fraction] 96.1 % Lucina Galvan DO Work Phone: [facility] [employer] 08-21-2024 09:09-0400 SaO2% (BldA) [Mass fraction] 96.6 % Lucina Galvan DO Work Phone: [facility] [employer] 08-20-2024 21:28-0400 SaO2% (BldA) [Mass fraction] 98.1 % Lucina Galvan DO Work Phone: [facility] [employer] 08-20-2024 16:12-0400 SaO2% (BldA) [Mass fraction] 96.9 % Lucina Galvan DO Work Phone: [facility] [employer] 08-20-2024 13:02-0400 SaO2% (BldA) [Mass fraction] 68.2 % Lucina Galvan DO Work Phone: [facility] [employer] 08-20-2024 10:31-0400 SaO2% (BldA) [Mass fraction] 92.1 % Lucina Galvan DO Work Phone: [facility] [employer] 08-13-2024 07:08-0400 SaO2% (BldA) [Mass fraction] 95.8 % Lucina Galvan DO Work Phone: [facility] [employer] 08-10-2024 12:21-0400 Diastolic blood pressure 56 mm[Hg] Colin Peoples MD Work Phone: [facility] [employer] 08-10-2024 12:21-0400 Heart rate 81 /min Colin Peoples MD Work Phone: [facility] [employer] 08-10-2024 12:21-0400 Systolic blood pressure 133 mm[Hg] Colin Peoples MD Work Phone: [facility] [employer] 08-10-2024 12:17-0400 Body temperature 97 [degF] Colin Peoples MD Work Phone: [facility] [employer] 08-10-2024 12:17-0400 Respiratory rate 16 /min Colin Peoples MD Work Phone: [facility] [employer] 08-10-2024 12:17-0400 SaO2% (BldA) [Mass fraction] 100 % Colin Peoples MD Work Phone: [facility] [employer] 08-07-2024 04:00-0400 Body mass index (BMI) [Ratio] 20.43 kg/m2 Colin Peoples MD Work Phone: [facility] [employer] 08-07-2024 04:00-0400 Body weight 57.4 kg Colin Peoples MD Work Phone: [facility] [employer] 08-03-2024 13:55-0400 Body height 167.6 cm Colin Peoples MD Work Phone: [facility] [employer] 07-31-2024 06:18-0400 SaO2% (BldA) [Mass fraction] 98.0 % Colin Peoples MD Work Phone: [facility] 02-05-2024 07:48-0400 Body height 167.[address] Sin Lujan Work Phone: [facility] 02-05-2024 07:48-0400 Body mass index (BMI) [Ratio] 15.1 kg/m2 Dr. Sin Lujan Work Phone: [facility] 02-05-2024 07:48-0400 Body temperature 94.6 [degF] Dr. Sin Lujan Work Phone: [facility] 02-05-2024 07:48-0400 Body weight 42.[address] Sin Lujan Work Phone: [facility] 02-05-2024 07:48-0400 Diastolic blood pressure 66 mm[Hg] Dr. Sin Lujan Work Phone: [facility] 02-05-2024 07:48-0400 Heart rate 61 /min Dr. Sin Lujan Work Phone: [facility] 02-05-2024 07:48-0400 Inhaled oxygen flow rate 3 L/min Dr. Sin Lujan Work Phone: [facility] 02-05-2024 07:48-0400 Respiratory rate 18 /min Dr. Sin Lujan Work Phone: [facility] 02-05-2024 07:48-0400 SaO2% (BldA) [Mass fraction] 99 % Dr. Sin Lujan Work Phone: [facility] 02-05-2024 07:48-0400 Systolic blood pressure 107 mm[Hg] Dr. Sin Lujan Work Phone: [facility] 12-03-2023 10:07-0500 Body height 167.[address] Sin Lujan Work Phone: [facility] 12-03-2023 10:07-0500 Body mass index (BMI) [Ratio] 16.2 kg/m2 Dr. Sin Lujan Work Phone: [facility] 12-03-2023 10:07-0500 Body temperature 97.8 [degF] Dr. Sin Lujan Work Phone: [facility] 12-03-2023 10:07-0500 Body weight 45.[address] Sin Lujan Work Phone: [facility] 12-03-2023 10:07-0500 Diastolic blood pressure 75 mm[Hg] Dr. Sin Lujan Work Phone: 5(140)443-540918 [address] 12-03-2023 10:07-0500 Heart rate 52 /min Dr. Sin Lujan Work Phone: 1(893)733-305118 [address] 12-03-2023 10:07-0500 Respiratory rate 16 /min Dr. Sin Lujan Work Phone: 6(201)851-648449 [place] [address] 12-03-2023 10:07-0500 SaO2% (BldA) [Mass fraction] 92 % Dr. Sin Lujan Work Phone: [facility] 12-03-2023 10:07-0500 Systolic blood pressure 148 mm[Hg] Dr. Sin Lujan Work Phone: 3(501)613-699749 [place] [address] 11-18-2023 10:57-0500 Body height 167.[address] Sin Lujan Work Phone: [facility] 11-18-2023 10:57-0500 Body mass index (BMI) [Ratio] 16 kg/m2 Dr. Sin Lujan Work Phone: [facility] 11-18-2023 10:57-0500 Body weight 44.[address] Sin Lujan Work Phone: [facility] 11-18-2023 10:57-0500 Diastolic blood pressure 72 mm[Hg] Dr. Sin Lujan Work Phone: 4(307)344-799649 [place] [address] 11-18-2023 10:57-0500 Heart rate 59 /min Dr. Sin Lujan Work Phone: [facility] 11-18-2023 10:57-0500 Inhaled oxygen flow rate 3 L/min Dr. Sin Lujan Work Phone: [facility] 11-18-2023 10:57-0500 Respiratory rate 18 /min Dr. Sin Lujan Work Phone: [facility] 11-18-2023 10:57-0500 SaO2% (BldA) [Mass fraction] 99 % Dr. Sin Lujan Work Phone: [facility] 11-18-2023 10:57-0500 Systolic blood pressure 148 mm[Hg] Dr. Sin Lujan Work Phone: [facility] 10-29-2023 08:59-0500 Body height 167.[address] Sin Lujan Work Phone: [facility] 10-29-2023 08:59-0500 Body mass index (BMI) [Ratio] 15.8 kg/m2 Dr. Sin Lujan Work Phone: [facility] 10-29-2023 08:59-0500 Body temperature 97.4 [degF] Dr. Sin Lujan Work Phone: [facility] 10-29-2023 08:59-0500 Body weight 44.[address] Sin Lujan Work Phone: [facility] 10-29-2023 08:59-0500 Diastolic blood pressure 63 mm[Hg] Dr. Sin Lujan Work Phone: [facility] 10-29-2023 08:59-0500 Heart rate 67 /min Dr. Sin Lujan Work Phone: [facility] 10-29-2023 08:59-0500 Inhaled oxygen flow rate 3 L/min Dr. Sin Lujan Work Phone: [facility] 10-29-2023 08:59-0500 Respiratory rate 22 /min Dr. Sin Lujan Work Phone: [facility] 10-29-2023 08:59-0500 SaO2% (BldA) [Mass fraction] 99 % Dr. Sin Lujan Work Phone: [facility] 10-29-2023 08:59-0500 Systolic blood pressure 121 mm[Hg] Dr. Sin Lujan Work Phone: [facility] 07-14-2023 10:44-0400 Body height 167.64 cm STORE ASSISTANT-C Jeanna Davis STORE ASSISTANT Work Phone: [facility] 07-14-2023 10:44-0400 Body mass index (BMI) [Ratio] 15.3 kg/m2 STORE ASSISTANT-C Jeanna Davis STORE ASSISTANT Work Phone: [facility] 07-14-2023 10:44-0400 Body temperature 97.8 [degF] STORE ASSISTANT-C Jeanna Davis STORE ASSISTANT Work Phone: [facility] 07-14-2023 10:44-0400 Body weight 43.26 kg STORE ASSISTANT-C Jeanna Davis STORE ASSISTANT Work Phone: [facility] 07-14-2023 10:44-0400 Diastolic blood pressure 72 mm[Hg] STORE ASSISTANT-C Jeanna Davis STORE ASSISTANT Work Phone: [facility] 07-14-2023 10:44-0400 Heart rate 70 /min STORE ASSISTANT-C Jeanna Davis STORE ASSISTANT Work Phone: [facility] 07-14-2023 10:44-0400 Respiratory rate 16 /min STORE ASSISTANT-C Jeanna Davis STORE ASSISTANT Work Phone: [facility] 07-14-2023 10:44-0400 SaO2% (BldA) [Mass fraction] 95 % STORE ASSISTANT-C Jeanna Davis STORE ASSISTANT Work Phone: [facility] 07-14-2023 10:44-0400 Systolic blood pressure 144 mm[Hg] STORE ASSISTANT-C Jeanna Davis STORE ASSISTANT Work Phone: [facility] 06-25-2023 05:47-0400 Body mass index (BMI) [Ratio] 15.7 kg/m2 STORE ASSISTANT-C Jeanna Davis STORE ASSISTANT Work Phone: [facility] 06-25-2023 05:47-0400 Body temperature 96.8 [degF] STORE ASSISTANT-C Jeanna Davis STORE ASSISTANT Work Phone: [facility] 06-25-2023 05:47-0400 Body weight 44.45 kg STORE ASSISTANT-C Jeanna Davis STORE ASSISTANT Work Phone: [facility] 06-25-2023 05:47-0400 Diastolic blood pressure 75 mm[Hg] STORE ASSISTANT-C Jeanna Davis STORE ASSISTANT Work Phone: [facility] 06-25-2023 05:47-0400 Heart rate 62 /min STORE ASSISTANT-C Jeanna Davis STORE ASSISTANT Work Phone: [facility] 06-25-2023 05:47-0400 Respiratory rate 16 /min STORE ASSISTANT-C Jeanna Davis STORE ASSISTANT Work Phone: [facility] 06-25-2023 05:47-0400 SaO2% (BldA) [Mass fraction] 96 % STORE ASSISTANT-C Jeanna Davis STORE ASSISTANT Work Phone: [facility] 06-25-2023 05:47-0400 Systolic blood pressure 136 mm[Hg] STORE ASSISTANT-C Jeanna Davis STORE ASSISTANT Work Phone: [facility] 06-12-2023 08:36-0400 Body height 167.[address] Sin Luajn Work Phone: [facility] 06-12-2023 08:36-0400 Body weight 45.[address] Sin Lujan Work Phone: [facility] 06-12-2023 08:36-0400 Heart rate 59 /min Dr. Sin Lujan Work Phone: [facility] 06-12-2023 08:36-0400 Inhaled oxygen flow rate 2 L/min Dr. Sin Lujan Work Phone: [facility] 06-12-2023 08:36-0400 SaO2% (BldA) [Mass fraction] 89 % Dr. Sin Lujan Work Phone: [facility] 04-09-2023 14:31-0400 Body height 167.[address] Sin Lujan Work Phone: [facility] 04-09-2023 14:31-0400 Body mass index (BMI) [Ratio] 16 kg/m2 Dr. Sin Lujan Work Phone: [facility] 04-09-2023 14:31-0400 Body weight 44.[address] Sin Lujan Work Phone: [facility] 04-09-2023 14:31-0400 Diastolic blood pressure 65 mm[Hg] Dr. Sin Lujan Work Phone: [facility] 04-09-2023 14:31-0400 Heart rate 59 /min Dr. Sin Lujan Work Phone: [facility] 04-09-2023 14:31-0400 Respiratory rate 18 /min Dr. Sin Lujan Work Phone: [facility] 04-09-2023 14:31-0400 Systolic blood pressure 113 mm[Hg] Dr. Sin Lujan Work Phone: [facility] 02-17-2023 07:47-0400 Body height 167.[address] Sin Lujan Work Phone: [facility] 02-17-2023 07:47-0400 Body mass index (BMI) [Ratio] 16 kg/m2 Dr. Sin Lujan Work Phone: [facility] 02-17-2023 07:47-0400 Body temperature 97 [degF] Dr. Sin Lujan Work Phone: [facility] 02-17-2023 07:47-0400 Body weight 44.[address] Sin Lujan Work Phone: [facility] 02-17-2023 07:47-0400 Diastolic blood pressure 58 mm[Hg] Dr. Sin Lujan Work Phone: [facility] 02-17-2023 07:47-0400 Heart rate 69 /min Dr. Sin Lujan Work Phone: [facility] 02-17-2023 07:47-0400 Respiratory rate 18 /min Dr. Sin Lujan Work Phone: [facility] 02-17-2023 07:47-0400 SaO2% (BldA) [Mass fraction] 95 % Dr. Sin Lujan Work Phone: [facility] 02-17-2023 07:47-0400 Systolic blood pressure 98 mm[Hg] Dr. Sin Lujan Work Phone: [facility] 01-01-2023 13:19-0500 Body mass index (BMI) [Ratio] 16.2 kg/m2 Dr. Sin Lujan Work Phone: [facility] 01-01-2023 13:19-0500 Body temperature 96.9 [degF] Dr. Sin Lujan Work Phone: [facility] 01-01-2023 13:19-0500 Body weight 45.[address] Sin Lujan Work Phone: [facility] 01-01-2023 13:19-0500 Diastolic blood pressure 77 mm[Hg] Dr. Sin Lujan Work Phone: [facility] 01-01-2023 13:19-0500 Heart rate 67 /min Dr. Sin Lujan Work Phone: [facility] 01-01-2023 13:19-0500 Respiratory rate 18 /min Dr. Sin Lujan Work Phone: [facility] 01-01-2023 13:19-0500 SaO2% (BldA) [Mass fraction] 92 % Dr. Sin Lujan Work Phone: [facility] 01-01-2023 13:19-0500 Systolic blood pressure 143 mm[Hg] Dr. Sin Lujan Work Phone: [facility] 09-05-2022 07:40-0400 Body height 167.[address] Sin Lujan Work Phone: [facility] Work Phone: 09-05-2022 07:40-0400 Body mass index (BMI) [Ratio] 17.2 kg/m2 Dr. Sin Lujan Work Phone: [facility] Work Phone: 09-05-2022 07:40-0400 Body temperature 98 [degF] Dr. Sin Lujan Work Phone: [facility] Work Phone: 09-05-2022 07:40-0400 Body weight 48.[address] Sin Lujan Work Phone: [facility] Work Phone: 09-05-2022 07:40-0400 Diastolic blood pressure 73 mm[Hg] Dr. Sin Lujan Work Phone: [facility] Work Phone: 09-05-2022 07:40-0400 Heart rate 66 /min Dr. Sin Lujan Work Phone: [facility] Work Phone: 09-05-2022 07:40-0400 Respiratory rate 16 /min Dr. Sin Lujan Work Phone: [facility] Work Phone: 09-05-2022 07:40-0400 SaO2% (BldA) [Mass fraction] 99 % Dr. Sin Lujan Work Phone: [facility] Work Phone: 09-05-2022 07:40-0400 Systolic blood pressure 160 mm[Hg] Dr. Sin Lujan Work Phone: [facility] Work Phone: 07-31-2022 12:46-0400 Body height 167.[address] Sin Lujan Work Phone: [facility] Work Phone: 07-31-2022 12:46-0400 Body weight 45.[address] Sin Lujan Work Phone: [facility] Work Phone: 07-31-2022 12:46-0400 Heart rate 79 /min Dr. Sin Lujan Work Phone: [facility] Work Phone: 07-31-2022 12:46-0400 SaO2% (BldA) [Mass fraction] 97 % Dr. Sin Lujan Work Phone: [facility] Work Phone: 07-04-2022 10:35-0400 Body mass index (BMI) [Ratio] 16.5 kg/m2 Dr. Sin Lujan Work Phone: [facility] Work Phone: 07-04-2022 10:35-0400 Body temperature 95.2 [degF] Dr. Sin Lujan Work Phone: [facility] Work Phone: 07-04-2022 10:35-0400 Body weight 46.[address] Sin Lujan Work Phone: [facility] Work Phone: 07-04-2022 10:35-0400 Diastolic blood pressure 76 mm[Hg] Dr. Sin Lujan Work Phone: [facility] Work Phone: 07-04-2022 10:35-0400 Heart rate 68 /min Dr. Sin Lujan Work Phone: [facility] Work Phone: 07-04-2022 10:35-0400 Respiratory rate 18 /min Dr. Sin Lujan Work Phone: [facility] Work Phone: 07-04-2022 10:35-0400 SaO2% (BldA) [Mass fraction] 96 % Dr. Sin Lujan Work Phone: [facility] Work Phone: 07-04-2022 10:35-0400 Systolic blood pressure 130 mm[Hg] Dr. Sin Lujan Work Phone: [facility] Work Phone: 05-28-2022 12:54-0400 Body height 167.64 cm No PCP None BE-Rlpcswzqvt-TY C [employer] Work Phone: 05-28-2022 12:54-0400 Body mass index (BMI) [Ratio] 17.24 kg/m2 No PCP None WW-Btdsrmjsdi-QBO [employer] Work Phone: 05-28-2022 12:54-0400 Body surface area Derived from formula 1.53 m2 No PCP None WS-Raamkuehpf-VFG [employer] [address] Work Phone: 05-28-2022 12:54-0400 Body temperature 97.2 [degF] No PCP None XX-Nmvwjpjwrm-D MC [employer] [address] Work Phone: 05-28-2022 12:54-0400 Body weight 48.44 kg No PCP None PW-Phanpouefm-TY C [employer] [address] Work Phone: 05-28-2022 12:54-0400 Diastolic blood pressure 55 mm[Hg] No PCP None MX-Mtigctxeks-BWN [employer] [address] Work Phone: 05-28-2022 12:54-0400 Heart rate 68 /min No PCP None VJ-Biaccrrdni-AD C [employer] [address] Work Phone: 05-28-2022 12:54-0400 SaO2% (BldA) [Mass fraction] 98 % No PCP None YB-Ewlrtrmkuj-RTA [employer] Work Phone: 05-28-2022 12:54-0400 Systolic blood pressure 111 mm[Hg] No PCP None WJ-Ltmdujivmz-QDU [employer] [address] Work Phone: 05-28-2022 12:54-0400 0 1 No PCP None MZ-Dcildcyyok-OX C [employer] Work Phone: Comment on above: [employer] 05-13-2022 08:14-0400 Body mass index (BMI) [Ratio] 16.9 kg/m2 Dr. Sin Lujan Work Phone: [facility] Work Phone: 05-13-2022 08:14-0400 Body temperature 97.4 [degF] Dr. Sin Lujan Work Phone: [facility] Work Phone: 05-13-2022 08:14-0400 Body weight 47.[address] Sin Lujan Work Phone: [facility] Work Phone: 05-13-2022 08:14-0400 Diastolic blood pressure 62 mm[Hg] Dr. Sin Lujan Work Phone: [facility] Work Phone: 05-13-2022 08:14-0400 Heart rate 67 /min Dr. Sin Lujan Work Phone: [facility] Work Phone: 05-13-2022 08:14-0400 Respiratory rate 16 /min Dr. Sin Lujan Work Phone: [facility] Work Phone: 05-13-2022 08:14-0400 SaO2% (BldA) [Mass fraction] 99 % Dr. Sin Lujan Work Phone: [facility] Work Phone: 05-13-2022 08:14-0400 Systolic blood pressure 126 mm[Hg] Dr. Sin Lujan Work Phone: [facility] Work Phone: 02-21-2022 13:07-0400 Body height 167.[address] Sin Lujan Work Phone: [facility] Work Phone: 02-21-2022 13:07-0400 Body mass index (BMI) [Ratio] 16.1 kg/m2 Dr. Sin Lujan Work Phone: [facility] Work Phone: 02-21-2022 13:07-0400 Body temperature 99.1 [degF] Dr. Sin Lujan Work Phone: [facility] Work Phone: 02-21-2022 13:07-0400 Body weight 45.[address] Sin Lujan Work Phone: [facility] Work Phone: 02-21-2022 13:07-0400 Diastolic blood pressure 75 mm[Hg] Dr. Sin Lujan Work Phone: [facility] Work Phone: 02-21-2022 13:07-0400 Heart rate 61 /min Dr. Sin Lujan Work Phone: [facility] Work Phone: 02-21-2022 13:07-0400 Respiratory rate 17 /min Dr. Sin Lujan Work Phone: [facility] Work Phone: 02-21-2022 13:07-0400 SaO2% (BldA) [Mass fraction] 95 % Dr. Sin Lujan Work Phone: [facility] Work Phone: 02-21-2022 13:07-0400 Systolic blood pressure 130 mm[Hg] Dr. Sin Lujan Work Phone: [facility] Work Phone: 02-21-2022 13:07-0400 Body height 167.[address] Sin Lujan Work Phone: [facility] Work Phone: 02-21-2022 13:07-0400 Body mass index (BMI) [Ratio] 16.1 kg/m2 Dr. Sin Lujan Work Phone: [facility] Work Phone: 02-21-2022 13:07-0400 Body temperature 99.1 [degF] Dr. Sin Lujan Work Phone: [facility] Work Phone: 02-21-2022 13:07-0400 Body weight 45.[address] Sin Lujan Work Phone: [facility] Work Phone: 02-21-2022 13:07-0400 Diastolic blood pressure 75 mm[Hg] Dr. Sin Lujan Work Phone: [facility] Work Phone: 02-21-2022 13:07-0400 Heart rate 61 /min Dr. Sin Lujan Work Phone: [facility] Work Phone: 02-21-2022 13:07-0400 Respiratory rate 17 /min Dr. Sin Lujan Work Phone: [facility] Work Phone: 02-21-2022 13:07-0400 SaO2% (BldA) [Mass fraction] 95 % Dr. Sin Lujan Work Phone: [facility] Work Phone: 02-21-2022 13:07-0400 Systolic blood pressure 130 mm[Hg] Dr. Sin Lujan Work Phone: [facility] Work Phone: 01-10-2022 08:05-0500 Body mass index (BMI) [Ratio] 17.3 kg/m2 Dr. Sin Lujan Work Phone: [facility] Work Phone: 01-10-2022 08:05-0500 Body temperature 97.3 [degF] Dr. Sin Lujan Work Phone: [facility] Work Phone: 01-10-2022 08:05-0500 Body weight 48.[address] Sin Lujan Work Phone: [facility] Work Phone: 01-10-2022 08:05-0500 Diastolic blood pressure 60 mm[Hg] Dr. Sin Lujan Work Phone: [facility] Work Phone: 01-10-2022 08:05-0500 Heart rate 77 /min Dr. Sin Lujan Work Phone: [facility] Work Phone: 01-10-2022 08:05-0500 Respiratory rate 18 /min Dr. Sin Lujan Work Phone: [facility] Work Phone: 01-10-2022 08:05-0500 SaO2% (BldA) [Mass fraction] 95 % Dr. Sin Lujan Work Phone: [facility] Work Phone: 01-10-2022 08:05-0500 Systolic blood pressure 140 mm[Hg] Dr. Sin Lujan Work Phone: [facility] Work Phone: 01-10-2022 07:05-0500 Body height 167.[address] Sin Lujan Work Phone: [facility] Work Phone: 01-10-2022 07:05-0500 Body mass index (BMI) [Ratio] 17.3 kg/m2 Dr. Sin Lujan Work Phone: [facility] Work Phone: 01-10-2022 07:05-0500 Body temperature 97.3 [degF] Dr. Sin Lujan Work Phone: [facility] Work Phone: 01-10-2022 07:05-0500 Body weight 48.[address] Sin Lujan Work Phone: [facility] Work Phone: 01-10-2022 07:05-0500 Diastolic blood pressure 60 mm[Hg] Dr. Sin Lujan Work Phone: [facility] Work Phone: 01-10-2022 07:05-0500 Heart rate 77 /min Dr. Sin Lujan Work Phone: [facility] Work Phone: 01-10-2022 07:05-0500 Respiratory rate 18 /min Dr. Sin Lujan Work Phone: [facility] Work Phone: 01-10-2022 07:05-0500 SaO2% (BldA) [Mass fraction] 95 % Dr. Sin Lujan Work Phone: [facility] Work Phone: 01-10-2022 07:05-0500 Systolic blood pressure 140 mm[Hg] Dr. Sin Lujna Work Phone: [facility] Work Phone: 03-05-2017 16:53-0400 BMI (Body Mass Index) 16.91 kg/m2 [facility] Work Phone: 03-05-2017 16:53-0400 BP Diastolic 68 mm[Hg] Ana Rosa Bustillo LPN [facility] Work Phone: 03-05-2017 16:53-0400 BP Systolic 120 mm[Hg] Ana Rosa Bustillo LPN [facility] Work Phone: 03-05-2017 16:53-0400 Height 167.64 cm Ana Rosa Bustillo LPN [facility] Work Phone: 03-05-2017 16:53-0400 Pulse (Heart Rate) 92 /min Ana Rosa Bustillo LPN [facility] Work Phone: 03-05-2017 16:53-0400 Pulse Oximetry 98 % Ana Rosa Bustillo LPN [facility] Work Phone: 03-05-2017 16:53-0400 Respiratory Rate 16 /min Ana Rosa Bustillo LPN [facility] Work Phone: 03-05-2017 16:53-0400 Weight 47.54 kg Ana Rosa Bustillo LPN [facility] Work Phone: 02-18-2017 14:22-0400 Body Temperature 97.9 [degF] Ana Rosa Bustillo LPN [facility] Work Phone: 02-18-2017 14:22-0400 BSA (Body Surface Area) 1.53 m2 Ana Rosa Bustillo LPN [facility] Work Phone: 02-18-2017 14:22-0400 Height 167.64 cm Ana Rosa Bustillo LPN [facility] Work Phone: 02-18-2017 14:22-0400 Weight 48.53 kg Ana Rosa Bustillo LPN [facility] Work Phone: Encounters Encounter Date Encounter Type Care Provider Facility Start: 05-18-2025 End: 05-18-[address] Bird Lujan MD Work Phone: -[facility] Start: 05-18-2025 End: 05-18-2025 Patient encounter procedure STORE ASSISTANT Irais Justice -[facility] Work Phone: Start: 05-08-2025 End: 05-08-2025 Emergency department patient visit Dr. Bird Lujan MD Work Phone: -Emergency Department Work Phone: Start: 04-11-2025 End: 04-11-[address] Bird Lujan MD Work Phone: [facility] Work Phone: Start: 04-11-2025 End: 04-11-[address] Christy Huerta DO -Laboratory Specimen Work Phone: Start: 04-11-2025 End: 04-11-2025 Dr. Christy Huerta DO -Laboratory Specime n Work Phone: Start: 04-11-2025 End: 04-11-[facility] Start: 04-09-2025 End: 04-09-2025 Dr. Bird Lujan MD Work Phone: -Emergency Department Work Phone: Start: 04-09-2025 End: 04-09-2025 Emergency department patient visit Dr. Bird Lujan MD Work Phone: [facility] Work Phone: Start: 04-09-2025 End: 04-09-[address] Bird Lujan MD Work Phone: [facility] Work Phone: Start: 04-09-2025 End: 04-09-[address] Christy Huerta DO -Laboratory Work Phone: Start: 04-09-2025 End: 04-09-2025 Dr. Christy Huerta DO -Laboratory Work Phone: Start: 04-09-2025 End: 04-09-2025 ambulatory Bird Lujan Facility:[facility] Start: 03-22-2025 End: 03-22-2025 Patient encounter procedure Kayleigh BHARDWAJ -[facility] Work Phone: Start: 03-22-2025 End: 03-22-2025 Kayleigh BHARDWAJ -[facility] Work Phone: Start: 03-22-2025 End: 03-22-[address] Christy Huerta DO Work Phone: [facility] Work Phone: Start: 03-10-2025 ambulatory Bird Lam lity:[facility] Start: 01-27-2025 End: 01-27-2025 Patient encounter procedure Brenda Medrano STORE ASSISTANT-C -[facility] Work Phone: Start: 01-27-2025 End: 01-27-2025 Brenda Medrano STORE ASSISTANT-C -[facility] Work Phone: Start: 01-27-2025 End: 01-27-2025 ambulatory Bird Lujan [facility] Start: 01-13-2025 Encounter for other preprocedural examination Favian Sinclair [facility] Start: 01-11-2025 End: 01-11-2025 Patient encounter procedure Kayleigh BHARDWAJ -[facility] Work Phone: Start: 01-11-2025 End: 01-11-2025 Kayleigh BHARDWAJ [facility] Work Phone: Start: 01-11-2025 End: 01-11-2025 ambulatory Bird Lujan Facility:[facility] Start: 01-11-2025 End: 01-11-[address] Bird Lujan MD Work Phone: [facility] Work Phone: Start: 01-11-2025 End: 01-11-2025 Patient encounter procedure Jeanna Davis STORE ASSISTANT-C -Cat Scan [facility] Work Phone: Start: 01-11-2025 End: 01-11-2025 Jeanna Davis STORE ASSISTANT-C -Cat Scan, [facility] Work Phone: Start: 01-11-2025 End: 01-11-2025 ambulatory Bird Lujan Facility:[facility] Start: 01-06-2025 [facility] Start: 01-06-2025 Dr. He Cat MD -[facility] Work Phone: Start: 01-05-2025 Dr. He Cat MD -[facility] Work Phone: Start: 01-05-2025 Dr. Terrance Alva DO -[facility] -PMW Start: 01-04-2025 Dr. He Cat MD -[facility] Work Phone: Start: 01-03-2025 End: 01-06-2025 Evaluation and management of inpatient [facility] Facility:[facility] Start: 01-03-2025 [facility] Start: 01-03-2025 End: 01-06-2025 Dr. He Cat MD -[facility] Work Phone: Start: 12-30-2024 End: 12-30-2024 Telephone encounter Kidney Txp Coordinators Work Phone: [facility] Comment on above: Referral - Kidney Tx p Start: 12-30-2024 Encounter for other preprocedural examination Kayleigh Payne [facility] Start: 12-29-2024 End: 12-29-2024 Telephone encounter Kidney Txp Coordinators Work Phone: [facility] Comment on above: Referral - Kidney Tx p Start: 12-28-2024 [facility] [place] [facility] Start: 12-28-2024 Dr. Favian Sinclair MD -[facility] -[facility] Start: 12-28-2024 End: 12-28-2024 Dr. Favian Sinclair MD -[facility] Start: 12-28-2024 End: 12-28-2024 [place]ulatory [place] Facility[place] Start: 12-24-2024 End: 12-24-2024 Telephone encounter Kidney Txp Coordinators Work Phone: [facility] Comment on above: Referral - Kidney Tx p Start: 12-17-2024 ambulatory [place] Faci lity:[facility] Start: 12-17-2024 End: 12-17-2024 Dr. Tee Aguirre MD -[facility] Start: 12-16-2024 End: 12-16-2024 Mynor Anthony STORE ASSISTANT-C -[facility] Work Phone: Start: 12-16-2024 End: 12-17-2024 ambulatory Bird Lujan Facility:[facility] Start: 12-02-2024 End: 12-02-2024 Dr. Favian Sinclair MD -[place] Work Phone: Start: 12-02-2024 End: 12-02-2024 ambulatory Bird Lujan Facility:[facility] Start: 11-20-2024 End: 11-20-2024 Dr. Justin Praisi DO -Emergency Department Work Phone: Start: 11-20-2024 End: 11-20-2024 Emergency department patient visit Bird Lujan Facility:[facility] Start: 11-04-2024 End: 11-04-2024 Emergency department patient visit Ed Physician Provider Facility:[facility] Start: 11-04-2024 End: 11-04-2024 ED PHYSICIAN PROVIDER -Emergency Departm ent Work Phone: Start: 11-04-2024 End: 11-04-2024 ambulatory Bird Lujan Facility:[facility] Start: 11-02-2024 ambulatory Favian Sinclair Facility:[facility] Start: 11-02-2024 End: 11-02-2024 Dr. Favian Sinclair MD -[facility] Start: 11-02-2024 End: 11-02-2024 ambulatory Christy Huerta Facility:[facility] Start: 10-16-2024 End: 10-16-2024 Jeanna Davis NP-C -Cat Luis, [facility] Work Phone: Start: 10-16-2024 End: 10-16-2024 ambulatory Jeanna Davis NP Facility:[facility] Start: 10-07-2024 End: 10-07-2024 Brenda Medrano STORE ASSISTANT-C -[facility] Work Phone: Start: 10-07-2024 End: 10-07-2024 ambulatory Bird Lujan Facility:[facility] Start: 08-31-2024 End: 08-31-2024 ambulatory Tami Esquivel Juni IMAGING AIDE - LOAD OUT PERSON Work Phone: [facility] Start: 08-31-2024 End: 08-31-2024 Patient encounter procedure Tami GuerraUriel Alfredo IMAGING AIDE - LOAD OUT PERSON Work Phone: [facility] Comment on above: Chronic respiratory failure with hypoxia and hypercapnia (HCC) [J96.11, J96.12] (Primary Dx); Centrilobular emphysema (HCC) [J43.2]; Other dysphagia [R13.19]; Hx of bacterial pneumonia [Z87.01] Start: 08-27-2024 End: 08-27-2024 ambulatory Tami MariUriel Alfredo IMAGING AIDE - LOAD OUT PERSON Work Phone: [facility] Start: 08-27-2024 End: 08-27-2024 Patient encounter procedure Tami GuerraUriel Alfredo IMAGING AIDE - LOAD OUT PERSON Work Phone: [facility] Comment on above: Chronic respiratory failure with hypoxia and hypercapnia (HCC) [J96.11, J96.12] (Primary Dx); Centrilobular emphysema (HCC) [J43.2]; History of recent pneumonia [Z87.01]; Other dysphagia [R13.19] Start: 08-25-2024 End: 08-25-2024 ambulatory Tami GuerraUriel Alfredo IMAGING AIDE - LOAD OUT PERSON Work Phone: [facility] Start: 08-25-2024 End: 08-25-2024 Patient encounter procedure Tami GuerraUriel Alfredo IMAGING AIDE - LOAD OUT PERSON Work Phone: [facility] Comment on above: Chronic respiratory failure with hypoxia and hypercapnia (HCC) [J96.11, J96.12] (Primary Dx); Centrilobular emphysema (HCC) [J43.2]; Bilateral pleural effusion [J90]; Hx of bacterial pneumonia [Z87.01]; Cigarette nicotine dependence without complication [F17.210] Start: 08-13-2024 End: 08-13-2024 ambulatory ELIZABETH TYLER [facility] Start: 08-12-2024 End: 08-24-2024 Evaluation and management of inpatient Lucina Galvan DO Work Phone: [facility] 6W Start: 08-11-2024 End: 08-11-2024 ambulatory ELIESER SOLIS [facility] Start: 08-11-2024 End: 11-10-2024 Subsequent hospital visit by physician Elieser Solis MD Work Phone: [facility] Comment on above: SDH (subdural hemato ma) (HCC) SDH (subdural hemato ma) (HCC) (Primary Dx) Start: 08-10-2024 End: 08-10-2024 ambulatory MADELINE MONTALVO [facility] Start: 07-28-2024 End: 07-28-2024 ambulatory TORITO KEYSHAWN [facility] Start: 07-27-2024 End: 07-29-2024 ambulatory TORITO [facility] Start: 07-26-2024 End: 08-10-2024 Evaluation and management of inpatient Colin Peoples MD Work Phone: [facility] Trauma Neuro Progressive Care Unit PCU 3W Start: 07-24-2024 End: 07-24-2024 ambulatory Saroj Lemos Facility:[facility] Start: 07-23-2024 ambulatory Favian Nicholas [facility] Start: 07-23-2024 End: 07-26-2024 Evaluation and management of inpatient Favian Nicholas Facility:[facility] Start: 07-13-2024 ambulatory Christy Huerta Facility: [facility] Start: 07-01-2024 End: 07-01-2024 ambulatory Bird Lujan Facility:[facility] Start: 05-20-2024 End: 05-20-2024 ambulatory Brenda Medraon Facility:[facility] Start: 03-02-2024 End: 03-02-[address] Bird Lujan Work Phone: [facility] Work Phone: Start: 03-02-2024 End: 03-02-[address] Bird Lujan Work Phone: [facility]-Cardiovascula r Services Work Phone: Start: 02-05-2024 End: 02-05-[address] Sin Lujan Work Phone: [facility]-Pulmonary Medicine [facility] Work Phone: Start: 02-02-2024 End: 02-02-[address] Sin Lujan Work Phone: [facility] Work Phone: Start: 02-02-2024 End: 02-02-[address] Sin Lujan Work Phone: [facility] Work Phone: Start: 01-15-2024 End: 01-15-[address] Sin Lujan Work Phone: [facility] Work Phone: Start: 01-15-2024 End: 01-15-[address] Sin Lujan Work Phone: [facility]-Laboratory, Phy Office [address] [place] [address] Start: 12-03-2023 End: 12-03-[address] Sin Lujan Work Phone: [facility] Endocrin[facility] Work Phone: Start: 11-18-2023 End: 11-18-[address] Sin Lujan Work Phone: [facility] Work Phone: Start: 11-18-2023 End: 11-18-[address] Sin Lujan Work Phone: [facility] Work Phone: Start: 10-29-2023 End: 10-29-[address] Sin Lujan Work Phone: [facility] Work Phone: Start: 10-29-2023 End: 10-29-[address] Sin Lujan Work Phone: [facility]-Laboratory, Specimen Work Phone: Start: 10-29-2023 End: 10-29-[address] Sin Lujan Work Phone: [facility]-Pulmonary Medicine [facility] Work Phone: Start: 10-20-2023 End: 10-20-[address] Sin Lujan Work Phone: [facility] Work Phone: Start: 10-20-2023 End: 10-20-[address] Sin Lujan Work Phone: [facility], [facility] Work Phone: Start: 10-13-2023 End: 10-13-[address] Sin Lujan Work Phone: [facility] Work Phone: Start: 10-13-2023 End: 10-13-[address] [facility] Start: 10-09-2023 End: 10-09-[address] Sin Lujan Work Phone: [facility] Work Phone: Start: 10-09-2023 End: 10-09-2023 Patient encounter procedure ELLIE Davis NP Work Phone: [facility], Phy Office 3rd Flr Start: 10-06-2023 End: 10-06-2023 ambulatory STORE ASSISTANT-C Jeanna Davis STORE ASSISTANT Work Phone: [facility] Work Phone: Start: 10-06-2023 End: 10-06-2023 Patient encounter procedure STORE ASSISTANT-Marquis Davis STORE ASSISTANT Work Phone: [facility]-Laboratory, Phy Office 3rd Flr Start: 08-06-2023 End: 08-06-2023 Patient encounter procedure STORE ASSISTANT-Marquis Davis STORE ASSISTANT Work Phone: [facility]-Cat Count Includes [facility], [facility] Work Phone: Start: 07-14-2023 End: 07-14-2023 Patient encounter procedure STORE ASSISTANT-Marquis Davis STORE ASSISTANT Work Phone: [facility] Endocrinology Work Phone: Start: 06-25-2023 End: 06-25-2023 Patient encounter procedure STORE ASSISTANT-Marquis Davis STORE ASSISTANT Work Phone: [facility]-Pulmonary Medicine [facility] Work Phone: Start: 06-19-2023 End: 06-19-[address] Sin Lujan Work Phone: [facility] Work Phone: Start: 06-19-2023 End: 06-19-[address] Sin Lujan Work Phone: [facility]-Laboratory, y Office 3rd Flr Start: 06-12-2023 Non-patient / Non-visit Dr. Aashish Lujan Work Phone: [facility] Start: 06-12-2023 End: 06-12-[address] Sin Lujan Work Phone: [facility]-Pulmonary Services/Neurology Work Phone: Start: 06-02-2023 End: 06-02-[address] Sin Lujan Work Phone: [facility] Work Phone: Start: 06-02-2023 End: 06-02-[address] Sin Lujan Work Phone: [facility] Work Phone: Start: 05-20-2023 Non-patient / Non-visit Dr. Aashish Lujan Work Phone: [facility] Start: 05-19-2023 End: 05-19-[address] Sin Lujan Work Phone: [facility] Work Phone: Start: 05-19-2023 End: 05-19-[address] Sin Lujan Work Phone: [facility]-Pulmonary Services/Neurology Work Phone: Start: 04-09-2023 End: 04-09-[address] Sin Lujan Work Phone: [facility] Work Phone: Start: 03-17-2023 End: 03-17-[address] Sin Lujan Work Phone: [facility]-Laboratory, Phy Office 3rd Ilr Start: 03-06-2023 Non-patient / Non-visit Dr. Aashish Lujan Work Phone: [facility] Work Phone: Start: 02-28-2023 Non-patient / Non-visit Dr. Aashish Lujan Work Phone: [facility] Start: 02-27-2023 Non-patient / Non-visit Dr. Aashish Lujan Work Phone: [facility] Start: 02-27-2023 End: 02-27-[address] Sin Lujan Work Phone: [facility] Work Phone: Start: 02-27-2023 End: 02-27-[address] Sin Lujan Work Phone: [facility] Start: 02-26-2023 End: 02-26-[address] Sin Lujan Work Phone: [facility] Work Phone: Start: 02-26-2023 End: 02-26-[address] Sin Lujan Work Phone: [facility] Start: 02-17-2023 End: 02-17-[address] [facility] Start: 01-01-2023 End: 01-01-[address] Sin Lujan Work Phone: [facility] Start: 10-11-2022 End: 10-11-[address] Sin Lujan Work Phone: [facility] Work Phone: Start: 10-11-2022 End: 10-11-[address] [facility] Start: 09-05-2022 End: 09-05-[address] [facility] Start: 08-05-2022 Non-patient / Non-visit Dr. Aashish Lujan Work Phone: [facility] Start: 07-31-2022 End: 07-31-[address] Sin Lujan Work Phone: [facility]/Neurology Start: 07-29-2022 Non-patient / Non-visit Dr. Aashish Lujan Work Phone: [facility] Start: 07-29-2022 End: 07-29-[address] Sin Lujan Work Phone: [facility] Work Phone: Start: 07-29-2022 End: 07-29-[address] Sin Lujan Work Phone: [facility]Neurology Start: 07-04-2022 End: 07-04-[address] Sin Lujan Work Phone: [facility] Endocrin[facility] Start: 06-09-2022 Chart Update No PCP None [facility] Work Phone: Start: 05-29-2022 Chart Update No PCP None [facility] Work Phone: Start: 05-29-2022 End: 05-29-[address] Sin Lujan Work Phone: [facility] Start: 05-28-2022 Patient encounter procedure No PCP None [facility] [address] Work Phone: Start: 05-13-2022 End: 05-13-[address] [facility] Start: 05-02-2022 End: 05-02-[address] Sin Lujan Work Phone: [facility] Start: 02-21-2022 End: 02-21-[address] Sin [facility] Start: 02-18-2022 End: 02-18-[address] Sin [facility] Start: 02-08-2022 End: 02-08-[address] Sin Lujan Work Phone: [facility] Start: 01-10-2022 End: 01-10-[address] Sin Lujan Work Phone: [facility] End[facility]inology Start: 12-24-2021 End: 12-24-[address] Sin Lujan Work Phone: [facility] Start: 12-19-2021 End: 12-19-[address] Sin Lujan Work Phone: [facility], [facility] Patient encounter status No PCP None [id number]-QJA Jackelin 1800 Work Phone: Procedures Date Procedure Procedure Detail Performing Clinician Start: 05-08-2025 Computed tomography of abdomen and pelvis with intravenous contrast Dr. Bird Lujan MD Work Phone: Start: 05-08-[address] Bird Luajn MD Work Phone: Start: 05-08-2025 X-ray of chest, PA a nd lateral views Dr. Bird Lujan MD Work Phone: Start: 05-08-2025 Urnls dip stick/tabl et reagent auto microscopy Dr. Bird Lujan MD Work Phone: Start: 05-08-[address] Bird Lujan MD Work Phone: Start: 01-11-2025 CT of chest without contrast [...] ination ph pco2 po2 co2 hco3 Sandy Janiamari Bowman DO Work Phone: Start: 08-20-2024 Blood [...] on above: Performed By: #### L [id number] ####Assembly Machine Tender: MARY SOTELO ([id number])[facility] ([facility])[address] [place] [address] Start: 08-12-2024 Blood typing serologic abo April Soto MD Start: 08-12-2024 End: 08-12-2024 Cyanocobalamin vitamin b-12 May Wang DO Work Phone: Start: 08-12-2024 Assay of troponin quantitative Sapphire Bianchi PA-C Work Phone: Start: 08-12-2024 Blood gases any comb ination ph pco2 po2 co2 hco3 Ana Rosa Carlin DO Work Phone: Start: 08-12-2024 Bacteria identified in Blood by Culture Sapphire Bianchi PA-C Work Phone: Start: 08-12-2024 Blood gases, venous measurement Sapphire Bianchi PA-C Work Phone: Start: 08-12-2024 Comprehensive metabo lic panel Sapphire Bianchi STACY Work Phone: Start: 08-12-2024 HC CUL TYP ID BLD PT HGN 6+ TRGT Sapphire Bianchi BENTON-C Work Phone: Start: 08-12-2024 Radiologic exam ches t single view Sapphire Bianchi YANDELMarquis Work Phone: Start: 08-12-2024 Ecg routine ecg w/le ast 12 lds i&r only Sapphire Bianchi BENTON-Marquis Work Phone: Start: 08-11-2024 Ct head/brain w/o co ntrast material Elieser Solis MD Work Phone: Start: 08-10-2024 Glucose quantitative blood xcpt reagent strip Fly Holli DO Work Phone: Start: 08-10-2024 Glucose quantitative blood xcpt reagent strip Fly Lenawee DO Work Phone: Start: 08-10-2024 End: 08-10-2024 Glucose quantitative blood xcpt reagent strip Fly Lenawee DO Work Phone: Start: 08-10-2024 End: 08-10-2024 Glucose quantitative blood xcpt reagent strip Fly Lenawee DO Work Phone: Start: 08-10-2024 Basic metabolic pane l calcium total May Sherice Wang DO Work Phone: Start: 08-10-2024 Complement antigen e ach component Saroj Gaffney MD Work Phone: Start: 08-09-2024 Glucose quantitative blood xcpt reagent strip Fly Lenawee DO Work Phone: Start: 08-09-2024 End: 08-09-2024 Creatinine other source Saroj Gaffney MD Work Phone: Start: 08-09-2024 Urnls dip stick/tabl et reagent auto microscopy Saroj Gaffney MD Work Phone: Start: 08-09-2024 Glucose quantitative blood xcpt reagent strip Fly Holli DO Work Phone: Start: 08-09-2024 Glucose quantitative blood xcpt reagent strip Fly Lenawee DO Work Phone: Start: 08-09-2024 Glucose quantitative blood xcpt reagent strip Fly Holli DO Work Phone: Start: 08-09-2024 End: 08-09-2024 [...] Phone: Start: 08-08-2024 Renal function panel Ja harry Wang DO Work Phone: Start: 08-07-2024 Glucose [...] on above: Performed By: #### L [id number] ####Assembly Machine Tender: MARY SOTELO ([id number])[facility] ([facility])[address] [place] [address] Start: 08-06-2024 Blood typing serologic abo Jomar [...] metabolic pane l calcium total May Sherice Iqbalnyder DO Work Phone: Start: 08-04-2024 Glucose quantitative [...] Glucose quantitative blood xcpt reagent strip Fly Lenawee DO Work Phone: Start: 08-04-2024 Basic metabolic pane l calcium total May Sherice Reshamirnyder DO Work Phone: Start: 08-03-2024 Glucose quantitative blood xcpt reagent strip Fly Lenawee DO Work Phone: Start: 08-03-2024 Glucose quantitative blood xcpt reagent strip Fly Holli DO Work Phone: Start: 08-03-2024 Glucose quantitative blood xcpt reagent strip Fly Lenawee DO Work Phone: Start: 08-03-2024 Glucose quantitative [...] 08-01-2024 End: 08-01-2024 Renal function panel Joycelyn Diane D O Work Phone: Start: 08-01-2024 Renal function panel Layton Diane DO Work Phone: Start: 08-01-2024 Ecg routine ecg w/le ast 12 lds trcg only w/o i&r Kena Kumar DO Work Phone: Start: 08-01-2024 End: 08-01-2024 Renal function panel Joycelyn Diane D O Work Phone: Start: 07-31-2024 Glucose quantitative blood xcpt reagent strip Kena Heath DO Work Phone: Start: 07-31-2024 End: 07-31-2024 [...] on above: Performed By: #### L [id number] ####Assembly Machine Tender: MARY SOTELO ([id number])[facility] ([facility])[address] [place] [address] Start: 07-31-2024 ABO and Rh group [Ty pe] in Blood by Confirmatory method Joycelyn Diaen DO Work Phone: Start: 07-31-2024 Blood typing serologic abo Joycelyn Diane DO Work Phone: Start: 07-31-2024 End: 07-31-2024 Renal function panel Joycelyn Diane D O Work Phone: Start: 07-31-2024 CHEST PHYSIOTHERAPY Jaden Diane DO Work Phone: Start: 07-31-2024 Blood gases any comb ination ph pco2 po2 co2 hco3 Kena Heath DO Work Phone: Start: 07-31-2024 End: 07-31-2024 Renal function panel Joycelyn Diane D O Work Phone: Start: 07-31-2024 End: 07-31-2024 Renal function panel Joycelyn Diane D O Work Phone: Start: 07-30-2024 Renal function panel Layton Diane DO Work Phone: Start: 07-30-2024 CHEST PHYSIOTHERAPY Jaden Diane DO Work Phone: Start: 07-30-2024 EXTUBATION Joycelyn leigh DO Work Phone: Start: 07-30-2024 Renal function panel Layton Diane DO Work Phone: Start: 07-30-2024 Blood gases any comb ination ph pco2 po2 co2 hco3 Kena Heath DO Work Phone: Start: 07-30-2024 End: 07-30-2024 Renal function panel Joycelyn Diane Hasmukh O Work Phone: Start: 07-30-2024 Radiologic exam ches t single view Joycelyn Diane DO Work Phone: Start: 07-30-2024 Blood gases any comb ination ph pco2 po2 co2 hco3 Latter Daykaris Fowler DO Start: 07-30-2024 Renal function panel Traylor [...] view Joycelyn Diane DO Work Phone: Start: 07-28-2024 End: 07-28-2024 Assay of phosphorus inorganic Joycelyn Guerra Diane DO Work Phone: Start: 07-28-2024 Glucose quantitative blood xcpt reagent strip Kena Heath DO Work Phone: Start: 07-28-2024 Assay of phosphorus inorganic Joycelyn Guerra Diane DO Work Phone: Start: 07-28-2024 Glucose quantitative blood xcpt reagent strip Kena Heath DO Work Phone: Start: 07-28-2024 Radiologic exam ches t single view Joycelyn Guerra Diane DO Work Phone: Start: 07-28-2024 Basic metabolic pane l calcium total Joycelyn Guerra Diane DO Work Phone: Start: 07-28-2024 Ecg routine ecg w/le ast 12 lds trcg only w/o i&r Joycelyn Diane DO Work Phone: Start: 07-28-2024 EEG CONTINUOUS MONITORING Torito Mahajan Work Phone: Start: 07-28-2024 Glucose quantitative blood xcpt reagent strip Kena Masseybryan DO Work Phone: Start: 07-28-2024 Blood gases any comb ination ph pco2 po2 co2 hco3 Saroj Knox MD Work Phone: Start: 07-28-2024 End: 07-28-2024 Comprehensive metabolic panel Kena Villagranrubia DO Work Phone: Start: 07-27-2024 Glucose quantitative [...] comb ination ph pco2 po2 co2 hco3 Clarashayy Arguellesmartir DO Work Phone: Start: 07-27-2024 EEG CONTINUOUS MONITORING Torito Mahajan Work Phone: Start: 07-27-2024 End: 07-27-2024 Glucose [...] Start: 07-27-2024 End: 07-27-2024 Comprehensive [facility] Work Phone: Start: 07-27-2024 Manual Differential panel - Blood Kena Heath DO Work Phone: Start: 07-27-2024 End: 07-27-2024 Smr prim src gram/giemsa stain bct fungi/cell [facility] Work Phone: Start: 07-27-2024 [...] comb ination ph pco2 po2 co2 hco3 [facility] Work Phone: Start: 07-26-2024 Assay of osmolality blood [facility] Work Phone: Start: 07-26-2024 Artl [...] MD Work Phone: Start: 07-24-2024 Antibody screen Brenda vinson Comment on above: Performed By: #### B , BTS, [id number] ####[facility] [id number] [place]za Vill[place], [place], [id number] Start: 02-02-2024 CT of chest without contrast Dr. Sin Lujan Work Phone: Start: 10-29-2023 Investigation of transfusion reaction Dr. Sin Lujan Work Phone: Start: 10-29-2023 [address] micro[address] l culture Dr. Sin Lujan Work Phone: Start: 10-20-[address] Aashish Lujan Work Phone: Start: 10-13-[address] Suraj Lujan Work Phone: Start: 08-06-2023 CT of chest without contrast STORE ASSISTANTPaddy Davis STORE ASSISTANT Work Phone: Start: 06-02-2023 CT of chest [...] stent placement Dr. Sin Lujan Work Phone: Comment on above: PCI-MIESHA-Mid RCA w/ 2 .5 x 28 mm [facility] 01/15/2018; PCI-MIESHA-Mid LCx w/ 3.0 x 16mm [facility] 02/04/2018 Start: 04-02-2012 Colonoscopy Kidney Screw Machine Set Up Operator rdinators Work Phone: Start: 12-26-2009 Lipid 1996 panel - S dottie or Plasma Kidney Coordinators Work Phone: Appendectomy No PCP None Hysterectomy No PCP None Plan of Treatment Date Care Activity Detail Author Start: 2034 RSV Vaccine (1 - 1-dose 75+ series) RSV Vaccine (1 - 1-dose 75+ series) [facility] Start: 08-12-2029 Cyanocobalamin vitamin b-12 Vitamin B-12 [facility] Start: 08-12-2029 [facility] Start: 09-04-2027 Diabetes Screening Diabetes Screening [facility] Start: 07-08-2027 DTaP/Tdap/Td Vaccines (3 - Td or Tdap) DTaP/Tdap/Td Vaccines (3 - Td or Tdap) [facility] Start: 07-08-2027 Urine microalbumin profile DTaP,Tdap,Td Vaccine (3 - Td or Tdap) [facility] Start: 07-08-2027 [facility] Start: 01-31-2026 Pneumococcal Vaccine: 50+ Years (3 of 3 - PCV20 or PCV21) Pneumococcal Vaccine: 50+ Years (3 of 3 - PCV20 or PCV21) [facility] Start: 09-20-2025 Pneumococcal Vaccine: Pediatrics (0 to 5 Years) and At-Risk Patients (6 to 64 Years) (3 of 3 - PPSV23 or PCV20) Pneumococcal Vaccine: Pediatrics (0 to 5 Years) and At-Risk Patients (6 to 64 Years) (3 of 3 - PPSV23 or PCV20) [facility] Start: 09-20-2025 [facility] Start: 09-06-2025 Diabetes: Estimated Glomerular Filtration Rate for Kidney Health Diabetes: Estimated Glomerular Filtration Rate for Kidney Health [facility] Start: 08-30-2025 Diabetes: Estimated Glomerular Filtration Rate for Kidney Health Diabetes: Estimated Glomerular Filtration Rate for Kidney Health [facility] Start: 08-25-2025 Diabetes: Estimated Glomerular Filtration Rate for Kidney Health Diabetes: Estimated Glomerular Filtration Rate for Kidney [facility] Start: 08-24-2025 [facility] Start: 08-11-2025 Diabetes: Estimated Glomerular Filtration Rate for Kidney Health Diabetes: Estimated Glomerular Filtration Rate for Kidney Health [facility] Start: 08-10-2025 [facility] Start: 07-26-2025 Hemoglobin A1c measurement [facility] Start: 07-26-2025 Thyroid stimulating hormone measurement [facility] Start: 05-08-2025 [facility] Start: 04-09-2025 [facility] Start: 01-06-2025 Patient discharge [facility] Start: 01-06-2025 Referral to occupational therapist [facility] Start: 01-06-2025 Referral to service [facility] Start: 01-05-2025 [facility] Start: 01-05-2025 Care of hemodialysis equipment [facility] Start: 01-05-2025 Hemodialysis care [facility] Start: 01-05-2025 [facility] Start: 01-05-2025 [facility] Start: 01-04-2025 End: 01-04-2025 [facility] Start: 01-04-2025 Care regimes management [facility] Start: 01-04-2025 Notification of physician [facility] Start: 01-04-2025 Continuous pulse oximetry [facility] Start: 01-04-2025 Care of hemodialysis equipment [facility] Start: 01-04-2025 Hemodialysis care [facility] Start: 01-04-2025 [facility] Start: 01-04-2025 Application of intermittent pneumatic compression device [facility] Start: 01-04-2025 End: 01-04-2025 [facility] Start: 01-04-2025 Notification of physician [facility] Start: 01-04-2025 Consultation for treatment [facility] Start: 01-04-2025 Following clinical pathway protocol [facility] Start: 01-04-2025 Ambulation without limitation [facility] Start: 01-04-2025 Assessment of risk of venous thromboembolism [facility] Start: 01-04-2025 Inhalation therapy procedure [facility] Start: 01-04-2025 Insertion of catheter into peripheral vein [facility] Start: 01-04-2025 Measuring intake and output [facility] Start: 01-04-2025 Oxygen therapy [facility] Start: 01-04-2025 Providing care according to standard [facility] Start: 01-04-2025 Referral to rib trim separator [facility] Start: 01-04-2025 [facility] Start: 01-04-2025 Care regimes management [facility] Start: 01-04-2025 Dual pressure spontaneous ventilation support [facility] Start: 01-04-2025 Patient referral to dietitian [facility] Start: 01-03-2025 Admission procedure [facility] Start: 12-28-2024 Anesthesia vascular shunt/shunt revision [facility] Start: 12-28-2024 Arteriovenous anastomosis open direct [facility] Start: 12-28-2024 Patient discharge [facility] Start: 2024 Advance Directive Discussion Advance Directive Discussion [facility] Start: 2024 Screening for osteoporosis Bone Density Screening [facility] Start: 11-20-2024 [facility] Start: 11-04-2024 [facility] Start: 08-13-2024 End: 08-13-2024 ambulatory [facility] Start: 08-13-2024 End: 08-13-2024 Patient encounter procedure 08/13/2024 11:15 AM EDT Office Visit [facility] [address] [place] [id number] Romero Wright MD [address] [place] [address] [facility] Start: 08-10-2024 End: 07-27-2025 CT Head WO contrast [facility] Work Phone: Start: 07-04-2024 Covid-19 Vaccine ( season) Covid-19 Vaccine ( season) [facility] Start: 07-04-2024 COVID-19 Vaccine ( season) COVID-19 Vaccine ( season) [facility] Start: 07-04-2024 COVID-19 Vaccine ( season) COVID-19 Vaccine ( season) [facility] Start: 07-04-2024 Influenza vaccination Influenza Vaccine (#1) [facility] Start: 07-04-2024 [facility] Start: 10-13-2023 [facility] Start: 10-13-2023 Bacteria identified in Urine by Culture [facility] Start: 10-23-2022 Shingrix Vaccine (2 of 2) Shingrix Vaccine (2 of 2) [facility] Start: 10-23-2022 Zoster Vaccines (2 of 2) Zoster Vaccines (2 of 2) [facility] Start: 10-23-2022 [facility] Start: 07-04-2022 Patient referral [facility] Work Phone: Start: 04-02-2022 Screening for malignant neoplasm of colon [facility] Start: 2019 RSV Immunization aged 60 or older (1 - 1-dose 60+ series) RSV Immunization aged 60 or older (1 - 1-dose 60+ series) [facility] Start: 2019 RSV Immunization for Adults (1 - Risk 60-74 years 1-dose series) RSV Immunization for Adults (1 - Risk 60-74 years 1-dose series) [facility] Start: 2019 [facility] Start: 03-05-2017 End: 03-06-2017 *CMP Complete Metabolic Panel *CMP Complete Metabolic Panel [facility] Work Phone: Start: 03-05-2017 End: 03-06-2017 *Microalbumin, Creatine Ratio, rand urine *Microalbumin, Creatine Ratio, rand urine [facility] Work Phone: Start: 03-05-2017 End: 03-06-2017 HbA1c *HgA1C [facility] Work Phone: Start: 03-05-2017 End: 03-06-2017 Lipid panel [AGGREGATE] *Lipid Profile [facility] Work Phone: Start: 02-18-2017 End: 02-23-2017 *CMP Complete Metabolic Panel *CMP Complete Metabolic Panel [facility] Work Phone: Start: 02-18-2017 End: 02-23-2017 *Microalbumin, Creatine Ratio, rand urine *Microalbumin, Creatine Ratio, rand urine [facility] Work Phone: Start: 02-18-2017 End: 02-23-2017 Lipid panel [AGGREGATE] *Lipid Profile [facility] Work Phone: Start: 12-26-2014 Lipid panel Lipid Screening [facility] Start: 01-21-2013 End: 01-21-2013 *BMP *BMP [facility] Work Phone: Start: 01-21-2013 End: 01-21-2013 *CBC with Differential *CBC with Differential [facility] Work Phone: Start: 01-21-2013 End: 01-21-2013 *CDIF - Clostridium Diff. Toxin Stool *CDIF - Clostridium Diff. Toxin Stool [facility] Work Phone: Start: 01-21-2013 End: 01-21-2013 Erythrocyte sedimentation rate *Sedimentation Rate (ESR) [facility] Work Phone: Start: 01-21-2013 End: 01-21-2013 Helicobacter pylori IgG Ab [Units/volume] in Serum *Helicobacter pylori [facility] Work Phone: Start: 01-21-2013 End: 01-21-2013 PT-TMJ PT-TMJ Physical Therapy [facility], [address] [place] [address], [id number] [facility] Work Phone: Start: 12-27-2012 Diabetes Screening Diabetes Screening [facility] Start: 12-04-2012 Screening for malignant neoplasm of breast Mammogram Screening [facility] Start: 2009 Pneumococcal Vaccine: 50+ (1 of 1 - PCV) Pneumococcal Vaccine: 50+ (1 of 1 - PCV) [facility] Start: 2009 Shingrix Vaccine (1 of 2) Shingrix Vaccine (1 of 2) [facility] Start: 04-30-2005 Urine microalbumin profile DTaP,Tdap,Td Vaccine (2 - Tdap) [facility] Start: 2004 Screening for malignant neoplasm of colon [facility] Start: 1999 Screening for malignant neoplasm of breast [facility] Start: 1989 Screening for malignant neoplasm of cervix [facility] Start: 1980 Screening for malignant neoplasm of cervix [facility] Start: 1978 Hepatitis A Vaccines (1 of 2 - Risk 2-dose series) Hepatitis A Vaccines (1 of 2 - Risk 2-dose series) [facility] Start: 1977 Anxiety Screening Anxiety Screening [facility] Start: 1977 Depression Screening Depression Screening [facility] Start: 1977 Diabetes: Urine Albumin-Creatinine Ratio for Kidney Health Diabetes: Urine Albumin-Creatinine Ratio for [facility] Start: 1977 Hepatitis C screening Hepatitis C Screening [facility] Start: 1977 HIV screening HIV Screening [facility] Start: 1977 [facility] Start: 1971 Depression Monitoring Depression Monitoring [facility] Start: 1971 [facility] Start: 1969 Diabetic foot examination [facility] Start: 1969 Glaucoma screening [facility] Start: 1969 Preventive dental service [facility] Start: 01-29-1961 MMR Vaccines (1 of 1 - Standard series) MMR Vaccines (1 of 1 - Standard series) [facility] Start: 1960 [facility] Start: 1959 Annual wellness visit [facility] Start: 1959 Cyanocobalamin vitamin b-12 Vitamin B-12 [facility] Start: 1959 Diabetes: Celiac Disease Screening Diabetes: Celiac Disease Screening [facility] Start: 1959 Lipid panel [facility] Start: 1959 Screening for malignant neoplasm of colon [facility] Start: 1959 [facility] End: 08-09-2024 Bacteria identified in Urine by Culture [facility] Work Phone: End: 08-20-2024 Blood gases, arterial measurement [facility] End: 08-20-2024 Blood gases, venous measurement [facility] Work Phone: CT Chest [facility] CT Chest W contrast IV [facility] CT Chest WO contrast [facility] End: 08-05-2024 ECG 12 lead [facility] [facility] Work Phone: Exercise tolerance test [facility] Lipid 1995 panel - S dottie or Plasma [facility] 1995 panel - S dottie or Plasma [facility] Measurement of respiratory function [facility] Patient Education [facility] Work Phone: Patient referral [facility] Work Phone: Positron emission tomography with computed tomography [facility] Vitamin D, 25-hydrox y measurement [facility] Immunizations Immunization Date Immunization Notes Care Provider Fa cility 10-28-2024 Pneumococcal Vaccine PCV20 (Prevnar 20) Dr. Bird Lujan MD Work Phone: [facility] 10-28-[address] Bird Lujan MD Work Phone: [facility] 09-27-2024 Pfizer Covid-19 (Comirnaty) Dr. Bird Lujan MD Work Phone: [facility] 07-24-2024 Influenza, seasonal, injectable, preservative free; Translations: [Influenza, Split Virus, Trivalent, PF] Tami Alfredo IMAGING AIDE - LOAD OUT PERSON Work Phone: [facility] 07-24-2024 [facility] DO Work Phone: [facility] 08-28-2022 influenza, injectabl e, quadrivalent, contains preservative [facility] DO Work Phone: [facility] 08-28-2022 influenza, injectabl e, quadrivalent, preservative free Dr. Bird Lujan MD Work Phone: [facility] 08-28-2022 zoster vaccine recombinant [facility] DO Work Phone: [facility] 08-28-2022 influenza virus vaccine, unspecified formulation [facility] Work Phone: [facility] 03-22-2021 Moderna COVID-19 Vaccine 100 MCG/0.5ML Intramuscular Suspension No PCP None [facility] 02-22-2021 Moderna COVID-19 Vaccine 100 MCG/0.5ML Intramuscular Suspension No PCP None [facility] 01-31-2021 pneumococcal conjuga te vaccine, 13 valent No PCP None [id number]-UTC [facility] Work Phone: 09-20-2020 pneumococcal polysaccharide vaccine, [address] Sin Lujan Work Phone: [facility] 09-20-2020 pneumococcal vaccine , unspecified formulation Dr. Sin Lujan Work Phone: [facility] Work Phone: 08-28-2020 influenza, injectabl e, quadrivalent, preservative free STORE ASSISTANTPaddy Davis NP Work Phone: [facility] 08-28-2020 influenza, seasonal, injectable Dr. Sin Lujan Work Phone: [facility] 08-28-2020 [facility] DO Work Phone: [facility] 08-12-2018 influenza, injectabl e, quadrivalent, preservative free Dr. Bird Lujan MD Work Phone: [facility] 08-12-2018 influenza, seasonal, injectable No PCP None [id number] Work Phone: 08-11-[address] Sin Lujan Work Phone: [facility] 08-11-2017 Influenza, seasonal, injectable, preservative free Tami Alfredo IMAGING AIDE - LOAD OUT PERSON Work Phone: [facility] 08-11-2017 Lucina HoangMike ANDERSON Work Phone: [facility] 07-08-2017 influenza, injectabl e, quadrivalent, contains preservative No PCP None [facility] [place] [address] Work Phone: 07-08-2017 influenza, injectabl e, quadrivalent, preservative free Dr. Bird Lujan MD Work Phone: [facility] 07-08-2017 tetanus toxoid, redu juliette diphtheria toxoid, and acellular pertussis vaccine, adsorbed No PCP None [facility] [place] 1800 Work Phone: 08-12-2016 pneumococcal polysaccharide vaccine, 23 valent No PCP None [facility] 1800 Work Phone: 07-15-2016 influenza, injectabl e, quadrivalent, preservative free STORE ASSISTANTEliaC Jeanna Davis NP Work Phone: [facility] 07-15-2016 influenza, seasonal, injectable Dr. Sin Lujan Work Phone: [facility] 08-07-2015 influenza, injectabl e, quadrivalent, preservative free Dr. Bird Lujan MD Work Phone: [facility] 08-07-2015 influenza, seasonal, injectable No PCP None [facility] 1800 Work Phone: 08-03-[address] Sin Lujan Work Phone: [facility] 08-03-2014 Influenza, seasonal, injectable, preservative free Tami Alfredo IMAGING AIDE - LOAD OUT PERSON Work Phone: [facility] 08-03-2014 Lucina Galvan DO Work Phone: [facility] 04-30-1995 diphtheria and tetan us toxoids, adsorbed for pediatric use Lucina HoangVigneshangelia DO Work Phone: [facility] Payers Date Payer Category Payer Unknown [id number] 2025 Unknown [id number] 2024 Private Health Insurance MMO [facility] [id number] 2024 Medicare [id number] 2024 Self-pay [id number] 2024 Commercial Managed C are - HMO [id number] 2024 Unknown 2024 Unknown [id number] 2011 Private Health Insurance [id number] Unknown [id number] Unknown [facility] PACKAGE PLAN [id number] Unknown [id number] 2.16.840.1.862327.3.579.2. 462 Unknown [id number] 2.16.840.1.943666.3.579.2. 462 Unknown [id number] 2.16.840.1.589491.3.579.2. 462 Unknown [id number] 2.16.840.1.212351.3.579.2. 462 Unknown [id number] 2.16.840.1.869187.3.579.2. 462 Unknown [id number] 2.16.840.1.937058.3.579.2. 462 Unknown [id number] 2.16.840.1.574323.3.579.2. 462 Unknown [id number] 2.16.840.1.046626.3.579.2. 462 Unknown [id number] 2.16.840.1.916519.3.579.2. 462 Unknown [id number] 2.16.840.1.857351.3.579.2. 462 Unknown [id number] 2.16.840.1.686044.3.579.2. 462 Unknown [id number] 2.16.840.1.582456.3.579.2. 462 Unknown [id number] 2.16.840.1.952037.3.579.2. 462 Unknown [id number] 2.16.840.1.642710.3.579.2. 462 Unknown [id number] 2.16.840.1.755929.3.579.2. 462 Unknown [id number] 2.16.840.1.952788.3.579.2. 462 Unknown [id number] 2.16.840.1.537033.3.579.2. 462 Unknown [id number] 2.16.840.1.820854.3.579.2. 462 Unknown [id number] 2.16.840.1.705538.3.579.2. 462 Unknown [id number] 2.16.840.1.256308.3.579.2. 462 Unknown [id number] 2.16.840.1.964442.3.579.2. 462 Unknown [id number] 2.16.840.1.998101.3.579.2. 462 Unknown [id number] 2.16.840.1.521716.3.579.2. 462 Unknown [id number] 2.16.840.1.098219.3.579.2. 462 Unknown [id number] 2.16.840.1.224587.3.579.2. 462 Unknown [id number] 2.16840.1.707828.3.579.2. 462 Unknown [id number] 2.16840.1.549257.3.579.2. 462 Unknown [id number] 2.840.1.205142.3.579.2. 462 Unknown [id number] 2.16.840.1.928466.3.579.2. 462 Unknown [id number] 2.16840.1.723577.3.579.2. 462 Unknown [id number] 2.16.840.1.364016.3.579.2. 462 Unknown [id number] 2.16840.1.825090.3.579.2. 462 Unknown [id number] 2.16.840.1.404309.3.579.2. 462 Unknown [id number] 2.16.840.1.007337.3.579.2. 462 Unknown [id number] 2.16.840.1.313557.3.579.2. 462 Unknown [id number] 2.16840.1.782241.3.579.2. 462 Unknown [id number] 2.16840.1.355792.3.579.2. 462 Unknown [id number] 2.16840.1.086160.3.579.2. 462 Unknown [id number] 2.16.840.1.644709.3.579.2. 462 Unknown [id number] 2.0.1.899103.3.579.2. 462 Social History Date Type Detail Facility Start: 01-10-2022 End: 07-14-2023 Tobacco smoking status WIIS Unknown if ever smoked [facility] Start: 08-26-2020 None [facility] Start: 08-26-2020 Spouse/ Signif icant Other [facility] Start: 08-29-2020 Cigarettes [facility] Start: 1960 Sex Assigned At Female W [facility] Start: 08-12-2024 End: 08-24-2024 Current smoker Current smoker [facility] Start: 1960 Sex assigned at S [facility] Start: 08-12-2024 End: 08-24-2024 Gender identity Not on file [facility] Start: 08-12-2024 [facility] Start: 08-12-2024 Tobacco use and exposure Smokeless tobacco non-user [facility] Has the [employer], [employer], [employer], or [employer] threatened to shut off services in your home in past 12Mo No [facility] [employer] How often to you hav e a drink containing alcohol? Never [facility] How many standard drinks containing alcohol do you have on a typical day? [facility] [employer] (I/We) worried wheth er (my/our) food would run out before (I/we) got money to buy more. Never true [facility] [employer] Start: 07-26-2024 End: 01-20-2025 Sex Female (finding) [facility] Start: 03-23-2009 End: 05-08-2025 Tobacco smoking status NHIS Ex-smoker [facility] End: 12-18-2009 History of tobacco use Current smoker [facility] End: 12-18-2009 History of tobacco use Cigarette Smoker [facility] Start: 04-02-2012 Alcoholic beverage intake Current non-drinker of alcohol (finding) [facility] Medical Equipment Procedure Code Equipment Code Equipment Origin al Text Equipment Identifier Dates Creation, AV fistula [id number] FDA Start: 12-28-2024 Creation, AV fistula [id number] FDA Start: 12-28-2024 Creation, AV fistula [id number] FDA Start: 12-28-2024 Blood Sugar Diagnostic (Freestyle [...] test blood sugar s 6-8 times daily [id number] Start: 03-23-2009 Blood Sugar Diagnostic (Freestyle Precision Jeff Strips) strip Start: 08-26-2023 End: 01-27-2025 Blood Sugar Diagnostic (Freestyle Precision Jeff Strips) strip Start: 08-26-2023 End: 01-27-2025 Goals Date Patient Goal Desired Activity /State Functional Status Date Assessment Result Facility 01-06-2025 Functional status Ambulates;Bathroom Priv ilege [facility] Work Phone: Mental Status Date Assessment Result Facility 05-08-2025 Cognitive function Level Of Cons ciousness Awake;Alert;Appropriate;Follow s Commands [facility] Work Phone: 04-09-2025 Cognitive function Awake;Alert;A ppropriate;Follow s Commands [facility] Work Phone: 01-06-2025 Cognitive function Voice/Name [facility] Work Phone: 12-28-2024 Cognitive function Sedated [facility] Work Phone: 12-28-2024 Cognitive function Voice/Name [facility] Work Phone: 11-20-2024 Cognitive function Awake;Alert;A ppropriate;Follow s Commands [facility] Work Phone: Clinical Notes 05-20-2023 to 05-08-2025 Note Date & Type Note Facility 05-08-2025 Radiology Diagnostic study note [facility] Imaging Services [address] [place], [place] [address] Abdomen/Pelvis W IV Cont ONLY MR#: [id number] Acct: [id number] Name: SANDY DENG Rep #: [id number] : 1960 F 64 From: Jose Brown MD PCP: Dr. Brid Lujan MD Status: REG ER Study:Abdomen/Pelvis W IV Cont ONLY Date of E xam: 05/08/25 Exam# [id number] Ordering Dr: Justin Lara DO PROCEDURE: ABDOMEN/PELVIS W IV CONT ONLY 05/08/2025 REASON FOR EXAM: LOWER ABDOMINAL PAIN TECHNIQUE: ABDOMEN/PELVIS W IV CONT ONLY Coronal and Sagittal reconstruction series were provided. CONTRAST: Isovue 370 VOLUME: 75 mL One or more dose reduction techniques were used (e.g., Automated exposure control, adjustment of the mA and/or kV according to patient size, use of iterative reconstruction technique. RADIATION DOSE SUMMARY: CTDlvol: 14.3 mGy DLP: 216.0 mGycm COMPARISON: None FINDINGS: Lung bases: Emphysema. There is a large pleural effusion on the left and a moderate pleural effusion on the right. There is compressive atelectasis of the adjacent portion of both lungs. There is a 5 mm in diameter nodule in the anterior basal segment of the lower lobe of the right lung (image 2). The heart size is normal. Thereis no pericardial effusion. There is calcific vascular disease of the thoracic aorta and coronary arteries. Liver: Normal. Gallbladder: Normal. Spleen: Normal. Pancreas: Normal. Adrenals: Normal. Kidneys: Normal. Bladder: Normal unenhanced appearance. Reproductive Organs: The uterus is surgically absent. The ovaries are not identified. There is free fluid in the pelvis. There is no inguinal lymphadenopathy. Bowel: There is diffuse edema of the bowel wall, most likely due to volume overload/congestive heart failure. Appendix: Not identified. Lymph nodes: There is no significant mesenteric, retroperitoneal or pelvic lymphadenopathy. Vasculature: There is calcific vascular disease of the abdominal aorta. There is ectasia of the infrarenal abdominal aorta. There is a short section dissection of the infrarenal abdominal aorta. The origins of both common iliac arteries are heavily calcified. Peritoneum / Retroperitoneum: There is a small amount of ascites in the abdomen. There is increased attenuation of the intra-abdominal retroperitoneal and subcutaneous fat. There are no abdominal wall defects. Bones: There are no significant bony abnormalities. CT/Abdomen/Pelvis W IV Cont ONLY IMPRESSION: 1. There are sequelae of volume overload/congestive heart failure with overall edema of the intra-abdominal and subcutaneous fat in the wall of the gastrointestinal tract, as well as, bilateral pleural effusions and free fluid in the abdomen and pelvis. There is also noted poor opacification of the intra-abdominal organs consistent with poor cardiac output. 2. There is calcific vascular disease of the thoracoabdominal aorta and coronary arteries. 3. Other findings as noted. Reading Location: [id number] CC: Dr. Justin Parisi DO; Dr. Bird Lujan MD ~ Inspector Handbag Frames: Signed [facility] Work Phone: 05-08-2025 Radiology Diagnostic study note [facility] Imaging Services [address] [place] [address] Chest PA and Lateral MR#: [id number] Acct: [id number] Name: SANDY DENG Rep #: [id number] : 1960 F 64 From: Jose Brown MD PCP: Dr. Bird Lujan MD Status: REG ER Study:Chest PA and Lateral Date of Exam: 05/08/25 Exam# [id number] Ordering Dr: Justin Lara DO PROCEDURE: CHEST PA AND LATERAL 05/08/2025 REASON FOR EXAM: HD PORT REMOVED TECHNIQUE: CHEST PA AND LATERAL COMPARISON: Two-view chest, 01/03/2025. FINDINGS: Status post removal of a multi port right IJ catheter. There is cardiomegaly and pulmonary venous hypertension without congestive heart failure. There is a moderate left pleural effusion. There is calcific vascular disease of the thoracic aorta and coronary arteries. There is a calcified granuloma in the upper lobe of the left lung. RAD/Chest PA and Lateral IMPRESSION: 1. Cardiomegaly and pulmonary venous hypertension without congestive heart failure. 2. Status post removal of a right IJ hemodialysis catheter. 3. Left pleural effusion. Reading Location: [id number] CC: Dr. Justin Parisi DO; Dr. Bird Lujan MD ~ Inspector Handbag Frames: Signed [facility] Work Phone: 04-09-2025 Discharge summary Note Date/Time April 09, 2025 1:43pm [facility] Medical Records Department [address] [place] [id number] Emergency Department Summary 04/09/25 MR#: [id number] Acct: [id number] Name: SANDY DENG Rep #:[id number] : 1960 64 From: Milind Heath MD PCP: Dr. Bird Lujan MD Status :REG ER Location: ED HPI History of Present Illness Chief Complaint: Abn Labs Detail of Chief Complaint: Sent to ER for low potassium Informant: patient, spouse/S.O. and other Onset/Context/Timing Onset: - (Abnormal lab noted today.) Context: - (Unknown) Timing: Continuous (Presumed) Quality: Tired and sleepy compared to normal Location: Renal Current Severity: Moderate Maximum Severity: Moderate Worsened by: Uncertain Relieved by: Not applicable Associated Symptoms Associated Symptoms: No paresthesia anesthesia or any cardiovascular symptoms. Narrative Narrative: Patient is a 64-year-old woman. She is seen by Dr. Huerta the rib trim separator. She has history of end-stage renal disease with estimated GFR approximately 15. Patient had outpatient blood work that revealed a potassium of 2.3. She was sent to the ER for IV potassium. Patient denies headache, visual, ocular auditory symptoms. Denies trouble with speech or swallowing. She denies paresthesia, anesthesia Medicus. She does states she has been more sleepy. She denies cardiac or respiratory symptoms. She does report intermittent dry heaves. She has 2 bowel movements per day. They are not watery. She is she still makes urine. She is not on a thiazide or loop diuretic. Med list was reviewed and she is not on any type of water pill. She does have history of chronic respiratory failure on oxygen. Prior similar symptoms: No Recent Illness/Hospitalization: No PFSH PFSH Medical History On home oxygen therapy Wears hearing aid Wears glasses Post-menopausal Insulin dependent diabetes mellitus Diabetes History of renal dialysis History of renal disease Anemia High cholesterol Easy bruising Excessive bleeding Injury of head and neck Former smoker Emphysema, unspecified History of edema History of echocardiogram History of stress test Cardiology follow-up encounter Osteoporosis Presence of insulin pump Severely underweight adult Lung nodule, multiple Nicotine abuse Lung nodule, solitary Fissure in skin of foot Lincoln's sign present Tobacco abuse CKD (chronic kidney disease) stage 4, GFR 15-29 ml/min Body mass index (BMI) less than 16.5 Underweight Polyneuropathy due to type 1 diabetes mellitus Stage 4 chronic kidney disease due to type 1 diabetes mellitus Respiratory failure with hypoxia Smoking greater than 30 pack years Anemia Diabetic nephropathy, type I Hyperkalemia Renal insufficiency Diabetes Chronic obstructive pulmonary disease Essential (primary) hypertension Hypersomnia Anxiety Depression Atherosclerosis of coronary artery of craig heart without angina pectoris NSTEMI (non-ST elevated myocardial infarction) (01/12/18) DM type 1 (diabetes mellitus, type 1) Hyperlipidemia COPD (chronic obstructive pulmonary disease) Home Medications ?Medication ?Instructions ?Recorded ?Last Taken ?Type simvastatin 40 mg tablet 40 mg PO QHS cholesterol 01/03/25 History albuterol sulfate 2.5 mg/3 mL 2.5 mg (3 mL) inhalation Q2H PRN 06/23/18 Unknown Rx (0.083 %) solution for nebulization PRN dyspnea, wheez ing ##1 aspirin 81 mg tablet,delayed 81 mg PO DAILY heart heal th 12/31/19 01/03/25 History release oxygen See Rx Instructions NASAL .C OMPLEX 12/03/23 01/04/25 History O2 therapy ipratropium 0.5 mg-albuterol 3 mg 3 ml inhalation Q4H PRN PRN SOB 12/29/23 Unknown Rx (2.5 mg base)/3 mL nebulization &/OR WHEEZING #180 mL soln denosumab 60 mg/mL subcutaneous 60 mg subcut [id number] bone health 06/10/24 07/09/24 Rx syringe (Prolia) #1 mL clopidogrel 75 mg tablet 75 mg PO DAILY anti platelet #90 07/26/24 01/03/25 Rx tabs gabapentin 800 mg tablet 200 mg PO BID neuropathy 03/2601/03/25 History nitroglycerin 0.4 mg sublingual 0.4 mg sublingual Q5-1 5M PRN chest 10/21/24 Unknown Rx tablet pain #25 tabs lisinopril 2.5 mg tablet 2.5 mg PO BID Blood pressure 11/04/24 01/03/25 History metoprolol tartrate 50 mg tablet 50 mg PO BID blood pr essure #180 11/11/24 01/03/25 Rx tabs amlodipine 10 mg tablet (Norvasc) 10 mg PO DAILY blood pressure 30 11/20/24 01/03/25 Rx days #30 tabs roflumilast 500 mcg tablet 500 mcg PO DAILY breathing #30 tabs 12/03/24 01/03/25 Rx (Daliresp) buspirone 7.5 mg tablet 7.5 mg PO DAILY Antianxiety 12/14/24 01/03/25 History sevelamer carbonate 800 mg tablet 800 mg PO TID To low er Phosphorus 12/14/24 01/03/25 History fluticasone fur. 200 mcg-umeclid 1 inh inhalation ALEJANDRA Y breathing 12/30/24 01/03/25 Rx 62.5 mcg-vilant 25 mcg #3 ea inhalat.powder (Trelegy Ellipta) cefdinir 300 mg capsule 300 mg PO BID 5 days #10 cap s 01/06/25 Unknown Rx pseudoephedrine-guaifenesin ER 60 1 tab PO BID cold sy mptoms #14 tabs 01/06/25 Unknown Rx mg-600 mg tablet,extend release 12hr (Mucinex D) hydralazine 25 mg tablet 25 mg PO TID blood pressure #90 02/08/25 Unknown Rx tabs blood-glucose sensor (FreeStyle #6 ea 02/09/25 Unknown Rx Eileen 2 Plus Sensor device) insulin pump cart,auto,BT,G6/L #30 ea 02/09/25 Unknown Rx (Omnipod 5 (G6/Eileen 2 Plus) subcutaneous cartridge) albuterol sulfate 90 mcg/actuation 2 puff inhalation Q 6H PRN PRN 03/14/25 Unknown Rx aerosol inhaler Cough #8.5 grams blood-glucose sensor (Dexcom G6 #3 ea 04/07/25 Unknown Rx Sensor device) blood-glucose transmitter (Dexcom #1 ea 04/07/25 Unkno wn Rx G6 Transmitter device) insulin lispro 100 unit/mL 60 unit (0.6 mL) continuous 04/07/25 Unknown Rx subcutaneous solution (Humalog subcutaneous infusion . continuous U-100 Insulin) #54 mL Allergy/AdvReac Type Severity Reaction Status Date / Time No Known Allergies Allergy Verified 04/09/25 12:26 Family History Mother Heart disease COPD (chronic obstructive pulmonary disease) Lupus Daughter Growth disorder Down syndrome Fibromyalgia Grandfather Colon cancer Diabetes Grandmother Heart disease CVA (cerebral vascular accident) Diabetes Pulmonary disease Sister Hypertension Kidney disease Surgical History Hx of surgical procedure History of cardiac catheterization History of coronary artery stent placement Hx of surgical procedure H/O: Hx of appendectomy H/O: hysterectomy History of coronary artery stent placement (02/04/18) Social History household members: spouse housing: house pets and animals: Yes pets and animals: cat(s) Smoking Status: Former smoker how long ago did patient quit smoking: Since 05/2024 cut back and has only had ~10 cigarettes since then. quit status: considering quitting alcohol intake: never substance use type: does not use caffeine: Yes Type: carbonated beverages Number of servings: 4 what type of physical activity do you participate in: none seatbelt use: always do you feel safe at home: Yes ROS ROS ED Constitutional Constitutional ED: Denies chills, fever(s) or subjective Eyes Eyes: Denies blurry vision or change in vision ENT ENT ED: Denies rhinorrhea or sore throat Cardiovascular Cardiovascular: Denies chest pain or palpitations Respiratory/Chest Respiratory/Chest: Reports dyspnea on exertion and other Details: Dyspnea with activity is chronic. ; Denies cough or dyspnea Gastrointestinal Gastrointestinal: Reports nausea; Denies abdominal pain, diarrhea, melena or vomiting Genitourinary Genitourinary ED: Denies dysuria, hematuria or urinary frequency Musculoskeletal Musculoskeletal: Denies arthralgias or myalgias Integumentary Denies rash Neurologic Neurologic: Reports weakness; Denies headache(s) or paresthesias Hematologic/Lymphatic Hematologic/Lymphatic: Reports systems reviewed and no addt'l complaints, exceptas documented EXAM Physical Exam Const Vital Signs: 04/09/25 12:22 Temperature 97.8 F Temperature Source Oral Pulse Rate 50 L Respiratory Rate 16 Blood Pressure 159/45 H Blood Pressure Mean 83 Pulse Ox 100 Oxygen Delivery Method Nasal Cannula Oxygen Flow Rate (L/min) 3 Positive well nourished and well developed General Appearance ED: well developed and NAD; Negative for pallor HEENT Reports moist mucous membranes HEENT Narrative: Head is atraumatic normocephalic. Ears normal. Nares patent. Posterior pharynx is normal. Eyes PERRL and EOMs intact bilaterally General Eye ED: Negative for pale conjunctiva or scleral icterus Neck no lymphadenopathy, supple and no JVD Chest Wall inspection of chest normal and palpation of chest normal Resp normal respiratory effort and clear to auscultation bilaterally Cardio regular rate, regular rhythm, S1 normal heart sound, S2 normal heart sound and no murmurs GI normal to inspection, nondistended, normoactive bowel sounds, non-tender, non-distended and no masses; Negative for hepatosplenomegaly GI Narrative: There is no pulsatile mass or abdominal bruit. Back/Spine no CVA tenderness Extremity normal to inspection Neuro oriented x3, CN's II-XII intact bilaterally and no sensory deficits noted Sensorium / Orientation: alert Motor Exam: strength 5/5 throughout Psych Mood & Affect: depressed Skin no rashes or lesions noted, no wounds and No skin turgor normal General Skin Exam: Negative for jaundice or pallor MDM MDM MDM Narrative Medical decision making narrative: Patient presents with hypokalemia. Uncertain cause. Will obtain a BMP to assess renal function and also obtain a magnesium. If her magnesium is low she will need that corrected otherwise we will have difficulty correcting her potassium. Patient was treated with p.o. potassium. She received a total of 120 mEq. This was preferred over IV because of cost, possible irritation to thevessel and the fact that absorption is quick and able to administer 120 mEq versus 20-30 over 2 to 3 hours. History & Record Review Additional record(s) reviewed:: Prior outpatient record and Prior labs Lab Data Attestation: I reviewed the patient's lab results. Lab results narrative: Magnesium is 2.8. Creatinine is 3.39, which is patient's baseline. Glucose is elevated 151 with a normal CO2 anion gap. Magnesium is normal. Labs: Laboratory Results - last 24 hr 04/09/25 12:37 Sodium 142 Potassium 2.8 L Chloride 102 Carbon Dioxide 31.4 Anion Gap 8 BUN 19 Creatinine 3.39 H Est GFR (MDRD) Non-Af 14 L BUN/Creatinine Ratio 5.6 L Glucose 151 H Calcium 9.2 Magnesium 2.2 EKG Initial EKG: Attestation: I personally reviewed and interpreted this EKG as follows: Interpretation: Sinus Bradycardia (Rate is 52. Sarepta to the left. MS interval is 176 ms. QRS duration 104 ms. There is evidence of a incomplete right bundle branch block. QT duration is 458 ms. There is evidence of LVH by voltage criteria. There is also decreased anterior force. There appears to be a U wave. This would be con) Treatment and Re-Evaluation :: Once patient receives her oral doses of potassium should be able to be discharged to home. Patient received 3 doses at once instead of spread out over an hour. Patient bedischarged to home Discharge Plan Triage Chief Complaint: Abn Labs ED Provider: Milind Heath Dx/Rx/DC Orders Clinical Impression: Acute hypokalemia, End-stage renal disease on hemodialysis, Atherosclerosis of coronary artery of craig heart without angina pectoris, Chronic obstructive pulmonary disease, Hypertension, High cholesterol, Nondiabetic hyperglycemia Instructions: ED Hypokalemia Prescriptions: No Action aspirin 81 mg tablet,delayed release (DR/EC) 81 mg PO DAILY gabapentin 800 mg tablet 200 mg PO BID oxygen See Rx Instructions NASAL .COMPLEX Rx Instructions: 3L NASALLY; 3 l lisinopril 2.5 mg tablet 2.5 mg PO BID simvastatin 40 MG tablet 40 mg PO QHS albuterol sulfate 2.5 MG/3 ML solution for nebulization 2.5 mg INHALATION Q2H PRN PRN (Reason: dyspnea, wheezing) Qty: 1 0RF amlodipine [Norvasc] 10 mg tablet 10 mg PO DAILY 30 Days Qty: 30 0RF sevelamer carbonate 800 mg tablet 800 mg PO TID buspirone 7.5 mg tablet 7.5 mg PO DAILY Patient Comments: PT ONLY WANTS TO TAKE ONCE PER DAY cefdinir 300 mg capsule 300 mg PO BID 5 Days Qty: 10 0RF pseudoephedrine-guaifenesin [Mucinex D] 60-600 mg tablet extended release 12 hr 1 tab PO BID Qty: 14 0RF ipratropium-albuterol 0.5 mg-3 mg(2.5 mg base)/3 mL solution for nebulization 3 ml inhalation Q4H PRN PRN (Reason: SOB &/OR WHEEZING) Qty: 180 6RF Prolia 60 mg/mL syringe 60 mg subcut A8AVEEXP Qty: 1 1RF Patient Comments: Next injection is 01/06/2025 clopidogrel 75 mg tablet 75 mg PO DAILY Qty: 90 3RF nitroglycerin 0.4 mg tablet, sublingual 0.4 mg SUBLINGUAL Q5-15M PRN (Reason: chest pain) Qty: 25 44RF Rx Instructions: until response; do not exceed 3 doses per episode metoprolol tartrate 50 mg tablet 50 mg PO BID Qty: 180 3RF roflumilast [Daliresp] 500 mcg tablet 500 mcg PO DAILY Qty: 30 11RF Trelegy Ellipta 200-62.5-25 mcg blister with device 1 inh inhalation DAILY Qty: 3 0RF hydralazine 25 mg tablet 25 mg PO TID Qty: 90 3RF (DME) FreeStyle Eileen 2 Plus Sensor Device See Rx Instructions .Route Qty: 6 2RF Rx Instructions: 1 sensor q 15 days (DME) Omnipod 5 (G6/Eileen 2 Plus) Cartridge See Rx Instructions .Route Qty: 30 2RF Rx Instructions: 1 pod q 3 days, must be compatible with eileen 2 plus albuterol sulfate 90 mcg/actuation HFA aerosol inhaler 2 puff INHALATION Q6H PRN PRN (Reason: Cough) Qty: 8.5 2RF insulin lispro [Humalog U-100 Insulin] 100 unit/mL solution 60 unit continuous subcutaneous infusion .continuous Qty: 54 1RF Rx Instructions: via insulin pump Advised to increase the insulin pump (DME) Dexcom G6 Sensor Device See Rx Instructions .Route Qty: 3 5RF Rx Instructions: 1 sensor q 10 days (DME) Dexcom G6 Transmitter Device See Rx Instructions .Route Qty: 1 1RF Rx Instructions: 1 transmitter q 90 days Primary Care Provider: Bird Lujan Referrals: Christy Huerta DO [Med Staff - Consulting] - 3-5 Days Bird Lujan MD [Primary Care Provider] - 1 Week Print Language: Cymraes Disposition Disposition: Home, Self Care What to do if you have Problems For any increased pain, shortness of breath, bleeding, nausea or vomiting, chestpain, or any unexpected problems, contact your Primary Care Provider. Call [facility] ([phone]) or report to the closest Emergency Room. Call 911 if necessary. 04/09/25 1343 <Electronically signed by Milind Heath MD> Cosigner Signature (if applicable): CC: Dr. Bird Lujan MD ~ Signed [facility] Work Phone: 1(911) 415-367803-27-2025 Evaluation note* Diagnosis Onset Date Resolution Status Admit Date DM type 1 (diabetes mellitus , type 1) chronic January 27, 2025 8:40am High cholesterol chronic January 272024 8:40am Hypertension chronic January 27, 2025 8:40am Insulin pump titration chronic [facility] 2024 8:40am Osteoporosis chronic January 27, 2025 8:40am Presence of insulin pump chronic January 27, 2025 8:40am Vitamin D deficiency chronic Giovani 2024 8:40am AV fistula acute March 22, 2025 12:59pm Hypercarbia acute May 18 8:42am Lung nodule, multiple acute Rosalino y 2024 8:42am Chronic hypoxic respiratory failure chronic May 18, 2025 8:42am Chronic obstructive pulmonar y disease chronic May 18, 2025 8:42am ESRD on hemodialysis chronic May 18, 2025 8:42am Hypertension chronic May 18, 025 8:42am [facility] Work Phone: 1(302) 831-522203-11-2025 Evaluation note* Diagnosis Onset Date Resolution Status Admit Date AV fistula acute January 11 2:55pm DM type 1 (diabetes mellitus , type 1) chronic January 27, 2025 8:40am High cholesterol chronic January 272024 8:40am Hypertension chronic January 27, 2025 8:40am Insulin pump titration chronic [facility] 2024 8:40am Osteoporosis chronic January 27, 2025 8:40am Presence of insulin pump chronic January 27, 2025 8:40am Vitamin D deficiency chronic [facility] 2024 8:40am AV fistula acute March 22, 2025 12:59pm [facility] Work Phone: 1(492) 547-162703-11-2025 Radiology Diagnostic study [facility]03-06-2025 [facility]25 Note [facility]02-27-2025 Telephone encounter Note* Telephone Encounter - Montana James - 12/30/2024 11:00 AM EST Called and spoke with the patient in regards to kidney transplant referral, she states she started the process with [facility], and would like to go through the process at that center, as one center is enough to go through testings, and appointments. Advised the patient if she changes her mind, provided her with our office phone number, referral ended, and she verbalized understanding. Montana James [facility]02-27-2025 Miscellaneous Notes* Telephone Encounter - Montana James - 12/30/2024 11:00 AM EST Called and spoke with the patient in regards to kidney transplant referral, she states she started the process with [facility], and would like to go through the process at that center, as one center is enough to go through testings, and appointments. Advised the patient if she changes her mind, provided her with our office phone number, referral ended, and she verbalized understanding. Montana James [facility] Telephone encounter Note * Telephone Encounter - Otilia Portillo Tech - 12/29/2024 10:50 AM EST I spoke with Lita at [facility] who confirmed the patients demographic information and confirmed that the phone number that we have on file for the patient is incorrect. The correct phone number is [phone]. [facility]02-26-2025 Miscellaneous Notes* Telephone Encounter - Otilia Portillo Tech - 12/29/2024 10:50 AM EST I spoke with Lita at [facility] who confirmed the patients demographic information and confirmed that the phone number that we have on file for the patient is incorrect. The correct phone number is [phone]. [facility] Telephone encounter Note* Telephone Encounter - Montana James - 12/24/2024 1:28 PM EST Called Sandy Deng without success regarding referral. Voicemail message was left for patient to call our office. Montana James [facility]02-21-2025 Miscellaneous Notes* Telephone Encounter - Montana James - 12/24/2024 1:28 PM EST Called Sandy Deng without success regarding referral. Voicemail message was left for patient to call our office. Montana James documented in [facility] Evaluation note* Diagnosis Onset Date Resolution Status Admit Date Atherosclerosis of coronary artery of craig heart without angina pectoris chronic December 16 025 1:50pm ESRD (end stage renal diseas e) on dialysis chronic December 16, 025 1:50pm Essential (primary) hypertension chronic December 16 1:50pm Hyperlipidemia chronic December 042024 1:50pm Acute respiratory failure hypoxia and hypercarbia acute January 11:39pm Anemia acute January 03 11:39pm End-stage renal disease on hemodialysis acute January 03, 2025 11:39pm Left lower lobe pneumonia acute January 03, 2025 11:39pm Parapneumonic effusion acute [facility] 2024 11:39pm Pleural effusion on left acute January 03, 2025 11:39pm COPD exacerbation chronic January 032024 11:39pm DM type 1 (diabetes mellitus , type 1) chronic January 03, 2025 11:39pm Hypertension chronic January 03 11:39pm Acute hyperkalemia resolved January 03, 2025 11:39pm Chronic hypoxemic respirator y failure resolved January 03, 2025 11:39pm AV fistula acute January 11 2:55pm DM type 1 (diabetes mellitus , type 1) chronic January 27, 2025 8:40am High cholesterol chronic January 272024 8:40am Hypertension chronic January 27, 2025 8:40am Insulin pump titration chronic [facility] 2024 8:40am Osteoporosis chronic January 27, 2025 8:40am Presence of insulin pump chronic January 27, 2025 8:40am Vitamin D deficiency chronic [facility] 2024 8:40am AV fistula acute March 22, 2025 12:59pm [facility] Work Phone: 1(874) 162-455201-30-2025 Evaluation note* Diagnosis Onset Date Resolution Status Admit Date ESRD (end stage renal diseas e) on dialysis chronic December 02 2:26pm Atherosclerosis of coronary artery of craig heart without angina pectoris chronic December 16, 025 1:50pm ESRD (end stage renal diseas e) on dialysis chronic February 13th, 2 025 1:50pm Essential (primary) hypertension chronic December 16, 2 025 1:50pm Hyperlipidemia chronic December 042024 1:50pm Acute respiratory failure wi hypoxia and hypercarbia acute January 11:39pm Anemia acute January 03 11:39pm End-stage renal disease on hemodialysis acute January 03, 2025 11:39pm Left lower lobe pneumonia acute January 03, 2025 11:39pm Parapneumonic effusion acute [facility] 2024 11:39pm Pleural effusion on left acute January 03, 2025 11:39pm COPD exacerbation chronic January 032024 11:39pm DM type 1 (diabetes mellitus , type 1) chronic January 03, 2025 11:39pm Hypertension chronic January 03 11:39pm Acute hyperkalemia resolved January 03, 2025 11:39pm Chronic hypoxemic respirator y failure resolved January 03, 2025 11:39pm AV fistula acute January 11 2:55pm DM type 1 (diabetes mellitus , type 1) chronic January 27, 2025 8:40am High cholesterol chronic January 272024 8:40am Hypertension chronic January 27, 2025 8:40am Insulin pump titration chronic [facility] 2024 8:40am Osteoporosis chronic January 27, 2025 8:40am Presence of insulin pump chronic January 27, 2025 8:40am Vitamin D deficiency [facility] 2024 8:40am [facility] Work Phone: 1(928) 244-649812-05-2024 Evaluation note* Diagnosis Onset Date Resolution Status Admit Date DM type 1 (diabetes mellitus , type 1) chronic October 07 1:39pm Hypertension chronic October 1:39pm Insulin pump titration chronic 2023 1:39pm Osteoporosis chronic October 1:39pm Presence of insulin pump chronic October 07, 2024 1:39pm Underweight chronic October 07, 2024 1:39pm Hypercarbia acute November 04, 2024 3:09pm Lung nodule, multiple acute James uary 2024 3:09pm Chronic hypoxic respiratory failure chronic November 04 3:09pm Chronic obstructive pulmonar y disease chronic November 04 3:09pm ESRD on hemodialysis chronic Carlos Alberto [facility] 2024 3:09pm Hypertension chronic November 04, 2024 3:09pm ESRD (end stage renal diseas e) on dialysis chronic December 02 2:26pm Atherosclerosis of coronary artery of craig heart without angina pectoris chronic December 16, 2 025 1:50pm ESRD (end stage renal diseas e) on dialysis chronic December 16, 2 025 1:50pm Essential (primary) hypertension chronic December 16, 2 025 1:50pm Hyperlipidemia chronic December 042024 1:50pm Acute respiratory failure wi th hypoxia and hypercarbia acute January 11:39pm Anemia acute January 03 11:39pm End-stage renal disease on hemodialysis acute January 03, 2025 11:39pm Left lower lobe pneumonia acute January 03, 2025 11:39pm Parapneumonic effusion acute [facility] 2024 11:39pm Pleural effusion on left acute January 03, 2025 11:39pm COPD exacerbation chronic January 032024 11:39pm DM type 1 (diabetes mellitus , type 1) chronic January 03, 2025 11:39pm Hypertension chronic January 03 025 11:39pm Acute hyperkalemia resolved January 03, 2025 11:39pm Chronic hypoxemic respirator y failure resolved January 03, 2025 11:39pm AV fistula acute January 11 2:55pm [facility] Work Phone: 1(548) 571-835210-29-2024 History of Present illness Narrative* SYED Buck CNP - 08/31/2024 1:43 PM EDT Patient seen by me at [facility]. Complete documentation including history with assessment and plan were documented in [facility] EMR. This encounter is for billing only. documented in [facility] History of Present illness Narrative* SYED Buck CNP - 08/27/2024 1:11 PM EDT Patient seen by me at [facility]. Complete documentation including history with assessment and plan were documented in [facility] EMR. This encounter is for billing only. documented in this encounterSBu[facility] [id number] History of Present illness Narrative* SYED Buck CNP - 08/25/2024 4:04 PM EDT Patient seen by me at [facility]. Complete documentation including history with assessment and plan were documented in [facility] EMR. This encounter is for billing only. documented in this encounterSBucyrus Community [id number] Miscellaneous Notes* Care Coordination - SAPNA Ibarra - 08/24/2024 2:22 PM EDT [facility] Met with patient and spouse- patient ok with ambulette. Set up for 3:30 with roundtrip, lavern stephie accepted the trip. Cost provided to patient 51.80-59.80. Updated patient ,spouse-BO Garcia. Sky Diver, Shayy with [facility] rehab and TCC. * Care Coordination - Kimberlee Valdovinos - 08/24/2024 12:45 PM EDT [facility] per TCC request. * Care Coordination - Jesi Bach RN - 08/24/2024 12:38 PM EDT Auth obtained for [facility]. SW messaged to set up transport, TELETYPE TELEGRAPHER messaged to send orders and MAR. * Care Plan - Juanis Rojas RN - 08/24/2024 6:45 AM EDT Problem: Knowledge Deficit Goal: Patient/family/caregiver demonstrates understanding of disease process, treatment plan, medications, and discharge instructions 08/24/2024 06 by Juanis Rojas RN Outcome: Progressing 08/23/20241918 by Juanis Rojas RN Outcome: Progressing Problem: Potential for Compromised Skin Integrity Goal: Skin Integrity is Maintained or Improved 08/24/2024 0645 by Juanis Rojas RN Outcome: [...] Problem: Problem Interventions Goal: Assess Nutritional Intake 08/24/202445 by Juanis Rojas RN Outcome: Progressing 08/23/20241918 by Juanis Rojas RN Outcome: Progressing * Care Coordination - Jesi Bach RN - 08/23/2024 1:19 PM EDT Per [facility] liaison Shayy, will re-submit for MMO auth today as MD states may be ready to discharge to rehab tomorrow if remains stable. Nephrology following non oliguric UMA, to received HD today (schedule is MWF), monitoring for renal recovery. Will follow. Electronically [...] EDT Care Management Progress Note Discharge Plan: [facility] This vice provost was tasked to follow this patient through the weekend assisting with dischargeplanning. Chart was reviewed. Messaged [employer] Copper Pl[employer] through secure chat to clarify auth status. Plan is to resubmit auth when patient is stable. Therapy see today request placed in epic for PT/OT updated notes to be completed [...] at baseline and stable to transfer to [facility]. PT/OT recommending IPR. Confirmed with Copper Plater Shayy that Insurance Authorization started for [facility] this am. Will await authorization . Length [...] at baseline and stable for transfer to [facility]. Discharge plan [facility]. Requested PT/OT evaluation today if possible to start insurance auth for return. Length of Stay (Days): 5 GMLOS: No GMLOS Documented * Care Coordination - Alanna Silva RN - 08/16/2024 12:33 PM EDT Care Management Progress Note Patient remains on T3 ICU, pending [facility] transfer - medically stable for [facility]. PT/OT evals pending. Patient is from [facility]. DCP- return vs SNF vs home with [facility], dc planning on going. CM to follow. . [...] EDT SW coverage for today. Pt from [facility]. SW received SDOH consult due to pt being unable to answer any questions upon admission due to altered mental status. SW following along with TCC. * Care Coordination - Amira Stark - 08/13/2024 10:20 AM EDT [facility] via [facility] per TCC request. Await review and response regarding ability to accept. TCC notified. * Care Coordination - An Werner RN - 08/13/2024 9:56 AM EDT Care Managment Initial Assessment Date: 08/13/2024 Patient Name: Sandy Deng : 1960 Patient Information Source of Information: Patient Grab Driver Name/Contact Information: Jose at the bedside. Cognition/Language: Impaired Permission given to speak with patient leather goods sales representative/caregiver as indicated: Yes Confirmation of Payer with patient/family: Yes Payer Name: [employer] [place] : No Confirmation of Primary Care Physician: Confirmed [...] Levels: Facility: Inpatient Rehab Facility Facility Name: [facility] Plan to Return: Yes Lives with: [...] expects to be discharged to: Return to [facility] to complete rehab. Discharge Planning Actions: Continue to follow Patient's Choice Rights and [employer] and Collaborative Relationships Disclosed as Indicated for Post-Acute Care: Interdisciplinary Team Engagement: Acute Rehab Social Work Referral for: Additional Information: Patient admitted to T3 from [facility] for Altered Mental Status. Confirmed at the bedside with Jose Deng that patient is from [facility] and that the discharge plan if for her to return. Referral placed in [facility]. Patient is currently on continuous EEG and [...] improving Outcome: Not Progressing documented in this [facility]10-22-2024 [facility] 08-24-2024 Hospital course Narrative* William Jarrett, DO - 08/24/2024 12:15 PM EDT Images [...] , and T1DM who was managed at [facility] from 08/12/24-08/24/24 for acute on chronic hypoxic and hypercapnic respiratory failure. Of note, patient was admitted from [facility] recent hospital admission from 07/26/24-08/10/24 when she was managed in the ICU for septic shock/subdural hematoma. While at [facility], patient experienced altered mental status and was found hypoxic in the 80's. She was managed in the ICU with NIV and brought to the general medical floor. While on the [facility], patient experienced AMS likely due to CO2 narcosis and was brought back to the ICU on NIV. She was stabilzed with improved mentation and ultimately was transferred back to the [facility] and strongly urged to use BiPap at night. She is currently AAOx3 after wearing the Bipap overnight, and is on 4 L of oxygen at 100%. She was ultimately stable upon discharge to [facility]. Disposition: Acute Rehab Activity: up with assist; [...] Breztri Aerosphere 160-9-4.8 MCG/ACT aerosol Generic drug: Vttzwmi-Qynkriwzlew-Fnflssjrxt busPIRone 7.5 MG tablet Commonly known as: [...] Commonly known as: Nitrostat * Omnipod 5 [id number] Intro Gen 5 kit * Omnipod 5 [id number] Pods Gen 5 misc Prolia 60 MG/ML solution prefilled syringe Generic drug: denosumab simvastatin 40 MG tablet Commonly known as: Zocor SPS 15 GM/60ML suspension Generic drug: sodium polystyrene Trelegy Ellipta 200-62.5-25 MCG/ACT aerosol powder Generic drug: Ifthtcgsszs-Unebenogf-Qbayfz * This list has 2 medication(s) that [...] 08/24/2024 1:33 PM EDT documented in this [facility]10-22-2024 History of Present illness Narrative* William Jarrett DO - 08/24/2024 11:13 AM EDT Med Team Progress Note Sandy Deng : 1960(63 y.o.) Date: August 24, 2024 Med Team: Frank Attending: Dr. Denise Chief Complaint: Hypercapnic Respiratory [...] so no tx. Plan transfer back to [facility] when arrangements in place. 31 (Discharge 10630) minutes spent nxyy-ny-zumt/floor time coordinating care and/or counseling patient. Savita Denise MD * Joni Monson MD - 08/23/2024 11:24 AM EDT Images from the original note were not included. Nephrology Progress Note Patient: Sandy Deng Room number: [id number] A Date of Admit: 08/12/2024 LOS: 11 days Referring physician: Kemar Adames DO Outpatient Hotel Security Officer: Christy Huerta Assessment/Plan: Mrs. Sandy Deng is a 63 year old female with PMH of CKD 4, DM type 1, HTN, CAD, COPD (3L [id number]), initially presenting with resp distress and delirium, Covid positive. Also found to havepseudomonas and staph aures PNA. She was intubated, now extubated. CT head showed a small right SDH. Consulted for UMA on CKD 4 - follows with Dr Christy Huerta ([place]). On review of available labs,Cr has been 2.4-2.8, last (04/26) Cr 2.4 eGFR 20, 24 hr fiwlteb=1950 mg. On admit, (07/26) Cr 4.56, CRRT [...] care of this patient. Joni Monson MD [facility] ([facility] Office phone: [phone] Office fax: [phone] 08/23/2024 Subjective Patient seen this am, spouse [...] LABS: Recent Labs 08/21/2431308/21/24 0825 08/21/24 1432 08/22/2443 08/23/24313 WBC 6.2 -- -- 4.8 4.4 [...] edema with small pleural effusions. * Renae Squires RD - 08/23/2024 11:05 AM EDT Nutrition Assessment [...] PO (chewing/swallowing) however monitor acute need for MANAGER [place] eval. Per MNT protocol will add 2PM [...] ? loss at baseline such as in amish, clavicle, etc (muscle)) Fluid Accumulation: No significant fluid accumulation (per chart) (BUE pitting, BLE non-pitting perflowsheets) Academic Department Chair Strength: Not Performed Nutrition Assessment: Pt with [...] (pt was d/c 08/10, initially presented to [facility] 07/23 w/ acute resp distress and acute [...] removed 2.3L; pt stable for transfer to [facility] after being treated for septic shcok and [...] admit --> 07/28/24: 134# bedscale, 08/07/24:126# bedscale) [place] Body Weight (lbs) (Calculated): 130 lbs [place] Body Weight (Kg) (Calculated): 59 kg % [place] Body Weight (Calculated): 83.1 % BMI (kg/m2) [...] Renae Squires RD Contact: Secure chat or *[phone] * Shanti Bianchi NP - 08/23/2024 9:26 AM EDT Images from the original note were not included. [facility] Wound Care Progress Note Sandy Deng [...] tablet by mouth 2 times daily. Cholecalciferol ([facility] Vitamin D3) 25 MCG (1000 UT) chewable [...] Sandy Deng : 1960(63 y.o.) Date: August 23, 2024 Med Team: A Attending: Dr. Denise Chief Complaint: Hypercapnic respiratory [...] not being treated; urology consulted. 35 (Subsequent [id number]) minutes spent bdhd-et-szwo/floor time coordinating care and/or counseling patient. Savita [...] (3 days 10mg, 3 days 5mg) Anticipated Bethania Medications (ICU initiated) or Dose Changes and [...] page MICU team for clarifications. * Zofia uHdson, OT - 08/22/2024 10:57 AM EDT Images from the original note were not included. OCCUPATIONAL THERAPY [facility] Treatment Note Name/MRN: Sandy Deng ([id number]) Date of : 1960 Age: 63 y.o. Room/Bed: T3304/[facility] A Discharge Recommendation: IP Rehab Other: Continue to assess pending progress. Prior Level of Function Prior Level of ADL Function: Independent Prior Level of Mobility: Independent; Device: Front wheeled walker Prior Level of Transfers: Independent Pt requires assistance at [facility], information of independent is baseline prior [...] original note were not included. PHYSICAL THERAPY [facility] Re-Evaluation Name/MRN: Sandy Deng ([id number]) Evaluation Date: 08/22/2024 Date of : 1960 Admission Date: 08/12/2024 12:53 PM Age: 63 y.o. Room/Bed: T3304/T3304 A Discharge Recommendation: IP Rehab Equipment Needed: [...] 08/12/2024 Chronic constipation 08/12/2024 Cigarette smoker 08/12/2024 Lincoln's sign present 08/12/2024 Depressive disorder 08/12/2024 Diabetic polyneuropathy (CMS/HCC) (HCC) 08/12/2024 Dizziness 08/12/2024 Gastroparesis 08/12/2024 Hypoglycemia 08/12/2024 Injury of kidney 08/12/2024 Intermittent palpitations 08/12/2024 Intractable vomiting with nausea 08/12/2024 Respiratory failure with hypoxia ([facility]) 08/12/2024 Skin lesion of foot 08/12/2024 Hypercapnic respiratory failure ([facility]) 08/12/2024 SDH (subdural hematoma) ([facility]) 07/26/2024 COPD (chronic obstructive pulmonary disease) ([facility]) 07/26/2024 Type 1 diabetes mellitus with kidney complication ([facility]) 07/26/2024 Myocardial infarction ([facility]) 07/26/2024 Hyperlipidemia 07/26/2024 Diabetic neuropathy associated with type 1 diabetes mellitus ([facility]) 07/26/2024 Stage 4 chronic kidney disease ([facility]) 07/26/2024 Acute renal failure ([facility]) 07/26/2024 Anemia 07/26/2024 Hypocalcemia 07/26/2024 Multiple pulmonary nodules 05/17/2024 Underweight 04/14/2024 Solitary pulmonary nodule 02/06/2024 Wheezing 10/29/2023 History of coronary artery stent placement 02/04/2018 Nicotine dependence 01/08/2017 Hypertension 01/08/2017 Diabetic ketoacidosis ([facility]) ([facility]) 12/30/2012 Medical Precautions: No active [...] Responsibilities: Independent Receives Help From: Spouse Active Equipment Analyst: N/A Prior Level of Function Prior Level [...] Raw Score (No Stairs) : 14 JH-HLM -HL Score: Transferred to chair/commode Plan Pt would [...] of Care supervision is transferred to a [facility] Physical Therapist. Goals and/or treatment [...] Normal [] Scar/Lesion/Mass Inspection of teeth/lips/gums Dentition: [][place] Teeth []Dentures Lips/Gums: [x]Intact []Lesion Present Mucosa: [x][place] []Moist []Dry Neck: External Appearance Overall Appearance: [...] 0825 08/21/24 1432 PHART 7.274* 7.286* 7.373 [id number] 59.2* 59.5* 51.3* PO2ART 113.3* 88.7 85.9 [id number] 26.8* 27.7* 29.2* [id number] 40% Oxygen CPAP CPAP Lactic Acid: No [...] night, modified lantus from 3u-> 5u starting tonight Nephrology following, HD on MWF, unable to [...] DVT Prophylaxis: Heparin subcutaneous Disposition: Transfer to [facility] Cosigned by Kemar Adames DO at 08/22/2024 3:38 PM EDT Associated attestation - Kemar Adames DO - 08/22/2024 3:38 PM EDT I have personally performed a bhhu-pj-voyw diagnostic evaluation on this patient on date of danwmzk31/20/24. History, labs, imaging studies, and electronic medical record have been reviewed by me. This note documented by the []Critical Care Fellow [x]house painting instructor []TONJA reflects my history, exam, and medical [...] days Referring physician: Savita Denise MD Outpatient Hotel Security Officer: Christy Huerta Assessment/Plan: Mrs. Sandy Deng is a 63 year old female with PMH of CKD 4, DM type 1, HTN, CAD, COPD (3L E6gbeoipbd), initially presenting with resp distress and delirium, Covid positive. Also found to havepseudomonas and staph aures PNA. She was intubated, now extubated. CT head showed a small right SDH. Consulted for UMA on CKD 4 - follows with Dr Christy Huerta ([place]). On review of available labs,Cr has been 2.4-2.8, last (04/26) Cr 2.4 eGFR 20, 24 hr ykqhtot=6515 mg. On admit, (07/26) Cr 4.56, CRRT [...] care of this patient. Karyn Jones MD [facility] ([facility]) Pager [phone] Office phone: [phone] Office fax: [phone] 08/21/2024 Subjective Patient seen this am. She [...] transferred out of ICU, declined to wear BiPAP.Dring evaluation patient was somnolent and lethargic but [...] mcg/kg/hr Objective: Last Vitals: BP MAP 133/54 (08/21/24599) 78 (08/21/24599) Arterial BP MAP (na) (08/13/24631) Temp 36.3 C (97.3 F) (08/21/24399) Pulse 58 (08/21/24599) Resp 17 (08/21/24599) SpO2 100 % (08/21/24599) Weight 55.2 kg (121 lb 11.1 oz) [...] Inspection of teeth/lips/gums (NIV mask inplace)_ Dentition: [][place] Teeth []Dentures Lips/Gums: []Intact []Lesion Present Mucosa: [][place] []Moist []Dry Neck: External Appearance Overall Appearance: [...] ABGs: Recent Labs 08/20/24 1250 08/20/24 1558 08/20/242120 PHART 7.244* 7.242* 7.274* [id number] 68.4* 67.9* 59.2* PO2ART 36.2* 101.2* 113.3* ZOD1CWG 28.9* 28.6* 26.8* [id number] Bi-PAP 40% Oxygen 40% Oxygen Lactic Acid: [...] noncompliance Respiratory acidosis T1DM ESRD on HD ([facility]) Hx CAD, stent placed 7 years ago, [...] PM EDT I have personally performed a bzab-zr-emff diagnostic evaluation on this patient on date of ntsknpa45/19/24. History, labs, imaging studies, and electronic medical record have been reviewed by me. This note documented by the []Critical Care Fellow [x]house painting instructor []TONJA reflects my history, exam, and medical [...] days Referring physician: Savita Denise MD Outpatient Hotel Security Officer: Christy Huerta Assessment/Plan: Mrs. Sandy Deng is a 63 year old female with PMH of CKD 4, DM type 1, HTN, CAD, COPD (3L O6ftjldzei), initially presenting with resp distress and delirium, Covid positive. Also found to havepseudomonas and staph aures PNA. She was intubated, now extubated. CT head showed a small right SDH. Consulted for UMA on CKD 4 - follows with Dr Christy Huerta ([place]). On review of available labs,Cr has been 2.4-2.8, last (04/26) Cr 2.4 eGFR 20, 24 hr qmskwkv=2840 mg. On admit, (07/26) Cr 4.56, CRRT [...] exacerbation: on prednisone taper -dispo: [facility] not ready today Will follow along as directed. Thank you for allowing us to participate in the care of this patient. Case discussed with primary team. Dr. Jones will be covering this weekend. Joni Monson MD [facility] ([facility]) Office phone: [phone] Office fax: [phone] 08/20/2024 Subjective Patient seen this am, spouse [...] Lying Pulse: 70 64 65 Resp: 18 Temp: (!) 35.3 C (95.5 F) [...] and dry, no rash LABS: Recent Labs 08/18/24 0417 08/19/24 0550 08/20/24 0522 08/20/24 1024 WBC 4.5 4.0 5.8 -- HGB 9.2* 9.3* 9.9* 10.1 HCT 29.1* 29.5* 30.5* -- MCV 92.1 93.1 90.8 -- PLT 111* 114* 145 -- Recent Labs 08/18/24 0417 08/19/24 0550 08/19/24 0806 08/20/24 0522 NA [...] edema with small pleural effusions. * Sherri Domingo APRN - LOAD OUT PERSON - 08/20/2024 8:33 AM EDT Images from the original note were not included. [facility] Wound Care Progress Note Sandy Deng [...] tablet by mouth 2 times daily. Cholecalciferol ([facility] Vitamin D3) 25 MCG (1000 UT) chewable [...] to follow Recommend to follow up at [facility] wound care center after hospital discharge. [...] the last 72 hours. Glucose: Recent Labs 08/18/2441608/18/24 0954 08/19/24 0550 08/19/24 0730 08/19/24 0806 [...] the last 72 hours. CBC: Recent Labs 08/18/2441608/19/24 0550 08/20/24 0522 [...] Daily, Janell Booker MD, 2 sprayat 08/19/24 0921 gabapentin (Neurontin) capsule 200 mg, 200 mg, Oral, BID, Janell Booker MD, 200 mg at 08/19/242129 glucagon (human recombinant) injection 1 mg, 1 [...] 0-12 Units, SubCUTAneous, TID WC, Janell Booker MD,2 Units at 08/19/24 184 Insulin Lispro (Humalog) injection 6 Units, 6 Units, SubCUTAneous, TID ZENAIDA, Sandy Bowman DO ipratropium-albuterol (Duo-Neb) 0.5-2.5 mg/3 [...] BID, Janell Booker MD, 2 puff at 08/19/242132 ondansetron ODT (Zofran-ODT) disintegrating tablet 4 mg, 4 mg, Oral, q8h PRN OR ondansetron (Zofran) injection 4 mg, 4 mg, IntraVENous, q6h PRN, Janell Bokoer MD pantoprazole (ProtoNix) EC tablet 40 mg, [...] Nightly, Janell Booker MD, 25 mg at 08/19/241 senna-docusate sodium (Senokot-S) 8.6-50 MG tablet 2 tablet, 2 tablet, Oral, Daily PRN, Janell Booker MD sodium chloride ([place]) 0.65 % nasal spray 1 spray, 1 [...] y.o.) Date: August 20, 2024 Med Team: Frank Attending: Dr. Denise Chief Complaint: Shortness of [...] would like to meet with SW or [employer]er [employer] to discuss insurance coverage for dialysis before [...] use BiPAP overnight. Pulmonary following. 35 (Subsequent [id number]) minutes spent dcyi-vd-ubgo/floor time coordinating care and/or counseling patient. Savita Denise MD * Joni Monson MD - 08/19/2024 3:19 PM EDT Images from the original note were not included. Nephrology Progress Note Patient: Sandy Deng Room number: [id number] A Date of Admit: 08/12/2024 LOS: 7 days Referring physician: Kemar Adames DO Outpatient Hotel Security Officer: Christy Huerta Assessment/Plan: Mrs. Sandy Deng is a 63 year old female with PMH of CKD 4, DM type 1, HTN, CAD, COPD (3L K4smtfjvcs), initially presenting with resp distress and delirium, Covid positive. Also found to havepseudomonas and staph aures PNA. She was intubated, now extubated. CT head showed a small right SDH. Consulted for UMA on CKD 4 - follows with Dr Christy Huerta ([place]). On review of available labs,Cr has been 2.4-2.8, last (04/26) Cr 2.4 eGFR 20, 24 hr xjpfrkl=4822 mg. On admit, (07/26) Cr 4.56, CRRT initiation for severe acidosis in setting of hemodynamic instability, cause of UMA thought to beATN in setttin of infection vs IRGN (complement levels found to be low). Now transitioned to iHD. Renal plan: 1- Oliguric UAM -receiving HD on MWF -pt has TDC [...] exacerbation: on prednisone taper -dispo: [facility] Will follow along as directed. Thank you for allowing us to participate in the care of this patient. Joni Monson MD [facility] ([facility]) Office phone: [phone] Office fax: [phone] 08/19/2024 Subjective Patient seen this am afternoon. [...] hours ending 08/19/24 1519 [REMOVED] Urethral Catheter Tzsafzxt-oxl-Fkdhve (mL): 25 mL FIO2 needs: on 4 [...] original note were not included. PHYSICAL THERAPY [facility] Treatment Note Name/MRN: Sandy Deng ([id number]) Date of : 1960 Age: 63 y.o. [facility] A Discharge Recommendation: IP Rehab Equipment [...] time needed with all mobility and very [place].Noted wet, non-productive cough and tends to fatigue quickly with low level activity. Cont to recommend inpt rehab upon disch Subjective Pt lying upright in bed. Agreeable to therapy with request to use the bathroom Pain: Pt denies any current pain. Medical Precautions: No active isolations Proper PPE donned/doffed in accordance with facility standards. Fall Risk: Ubnn Fall Risk Score: 85 (High Risk) Precautions/Restrictions: [...] (No Stairs) : 14 JH-HLM -HLM Score: Walked 25 ft or more (i.e. [...] for ambulation. (Progressing) Start: 08/17/24 Expected End: 11/12/24 Therapy Time Individual Co-treatment Time In 0817 [...] within last 24 hours- BMP: Recent Labs 08/17/24 0223 08/18/24 0417 08/19/24 0550 NA 132* 130* 126* K 3.6 3.8 4.4 CL 100 99 95* CO2 28 27 28 BUN 21* 35* 28* CREATININE 2.31* 3.57* 2.98* CALCIUM 7.0* 7.9* 7.4* MG 2.0 2.0 2.0 PHOS 2.8 3.4 3.8 LFTs:No results for input(s): AST, ALT, PROT, ALBUMIN, BILITOT, BILIRUBINU, ALKPHOS, LIPASE in the last 72 hours. Glucose: Recent Labs 08/17/243 08/17/24 0833 08/18/24 0417 08/18/24 0954 08/18/24 1322 08/18/24 1623 08/18/24 [...] the last 72 hours. CBC: Recent Labs 08/17/2422208/18/24 0417 08/19/24 0550 WBC 4.5 4.5 4.0 [...] Narrative [facility] 1960 [id number] Exam Date/Time: 08/12/2024 13:10 Procedure: XR CHEST [...] Daily, Janell Booker MD, 81 mg at 08/19/24 09 atorvastatin (Lipitor) tablet 20 mg, 20 mg, Oral, Nightly, Janell Booker MD, 20 mg at 08/18/242012 busPIRone (Buspar) tablet 7.5 mg, 7.5 mg, Oral, BID, Janell Booker MD, 7.5 mg at 08/19/24 1218 clopidogrel (Plavix) tablet 75 mg, 75 mg, Oral, Daily, Janell Booker MD, 75 mg at 08/19/24 09 dextrose 5 % infusion, 100 mL/hr, IntraVENous, PRN, Janell Booker MD dextrose 50 % solution 12.5 g, 12.5 g, IntraVENous, PRN, Janell Booker MD fluticasone (Flonase) nasal spray 2 spray, 2 spray, Each Nostril, Daily, Janell Booker MD, 2 sprayat 08/19/24920 gabapentin (Neurontin) capsule 200 mg, 200 mg, Oral, BID, Janell Booker MD, 200 mg at 08/19/24 09 glucagon (human recombinant) injection 1 mg, 1 mg, IntraMUSCular, PRN, Janell Booker MD glucose oral gel 15 g, 15 g, Oral, PRN, Janell Booker MD guaiFENesin (Mucinex) 12 hr tablet 600 mg, 600 mg, Oral, BID, Janell Booker MD, 600 mg at 921 heparin injection 5,000 Units, 5,000 Units, SubCUTAneous, 2 times per day, Janell Booker MD, 5,000Units at 08/19/24 09 insulin glargine (Lantus) injection 10 Units, 10 Units, SubCUTAneous, Nightly, William Jarrett DO Insulin Lispro (Humalog) injection 0-12 Units, 0-12 Units, SubCUTAneous, TID , Janell Booker MD,12 Units at 08/19/24 1406 Insulin Lispro (Humalog) injection 8 Units, 8 Units, SubCUTAneous, TID , William Jarrett DO, 8 Unitsat 08/19/24 1405 ipratropium-albuterol (Duo-Neb) 0.5-2.5 mg/3 mL nebulizer solution 3 mL, 3 mL, Nebulization, 4x daily PRN, Glenda Ma MD lisinopril tablet 2.5 mg, 2.5 mg, Oral, Daily, Janell Booker MD, 2.5 mg at 08/19/24 09 metoprolol tartrate (Lopressor) tablet 25 mg, 25 mg, Oral, BID, Janell Booker MD, 25 mg at 08/19/24 0920 mirtazapine (Remeron) tablet 7.5 mg, 7.5 mg, [...] Nightly, Janell Booker MD, 40 mg at 3 polyethylene glycol (PEG) 3350 (Miralax) packet 17 [...] tablet 5 mg, 5 mg, Oral, Daily, aJnell Booker MD QUEtiapine (SEROquel) tablet 25 mg, 25 mg, Oral, Nightly, Janell Booker MD, 25 mg at 08/18/242012 senna-docusate sodium (Senokot-S) 8.6-50 MG tablet 2 tablet, 2 tablet, Oral, Daily PRN, Janell Booker MD sodium chloride ([place]) 0.65 % nasal spray 1 spray, 1 spray, Each Nostril, PRN, Janell Booker MD, 1 spray at 08/18/24 1000 sodium chloride 0.9 % infusion, 250 mL/hr, IntraVENous, PRN, Janell Booker MD tiotropium (Spiriva Respimat) 2.5 MCG/ACT inhaler 2 puff, 2 puff, Inhalation, Daily, Glenda Ma MD Allergies No Known Allergies Glenda Ma MD PGY- 4 Pulmonary and Critical Care Medicine * Elliott Menard, DO - 08/19/2024 7:47 AM EDT Med [...] would like to meet with SW or [employer] to discuss insurance coverage for dialysis before [...] PT and OT recommended IPR on discharge. contract negotiation manager following Cosigned by Savita Denise MD [...] as directed by pulmonary service. 35 (Subsequent 94299) minutes spent fgqt-gw-xfve/floor time coordinating care and/or counseling patient. Savita Denise MD * Lidia Rojas, RICKY - 08/18/2024 1:26 PM EDT Nutrition Assessment Type and Reason for Visit: Reassess Nutrition Recommendations/Plan: 1. Pt is currently ordered a CHO Controlled (60gm CHO/meal) Diet. --> of note during pt recent admit she underwent MBSS 08/04 with pureed/mildly thick liquids recs, was later upgraded to regular textures/mildly thick liquids prior to discharge. [facility] a Soft and Bite Sized Diet with Mildly Thick Liquids. RN and pt subjective denying issues with swallowing at this time. Continue to monitor need for MANAGER [place] assessment given rec ent recommendations. 2. Will [...] flowsheets) (BUE pitting, BLE non-pitting per flowsheets) Academic Department Chair Strength: Not Performed Nutrition Assessment: pt with previously reviewed PMH who remains admitted to the ICU after she initially presented to [facility] ED on 08/12/24 in respiratory distress, pt was d/c to [facility] following admit and was found with altered mentation, NC was taken off and pulse ox was 80%, pt was brought to [facility] ED for assessment, in theED mental status [...] yesterday with recs to d/c back to [facility], wound care following due to left 4th toe abrasion, noted pt has been deemed stable for transfer to [facility] since 08/14. In terms of nutrition throughout [...] [facility] Soft and Bite [...] admit --> 07/28/24: 134# bedscale, 08/07/24:126# bedscale) [place] Body Weight (lbs) (Calculated): 130 lbs [place] Body Weight (Kg) (Calculated): 59 kg % [place] Body Weight (Calculated): 83.1 % BMI (kg/m2) [...] determine Lidia Rojas RD Contact: available via [employer] chat or *[phone] * Joni Monson MD - 08/18/2024 12:55 PM EDT Images from the original note were not included. Nephrology Progress Note Patient: Sandy Deng Room number: [id number] A Date of Admit: 08/12/2024 LOS: 6 days Referring physician: Kemar Adames DO Outpatient Hotel Security Officer: Christy Huerta Assessment/Plan: Mrs. Sandy Deng is a 63 year old female with PMH of CKD 4, DM type 1, HTN, CAD, COPD (3L R2ltzdppps), initially presenting with resp distress and delirium, Covid positive. Also found to havepseudomonas and staph aures PNA. She was intubated, now extubated. CT head showed a small right SDH. Consulted for UMA on CKD 4 - follows with Dr Christy Huerta ([place]). On review of available labs,Cr has been 2.4-2.8, last (04/26) Cr 2.4 eGFR 20, 24 hr auqyygl=2242 mg. On admit, (07/26) Cr 4.56, CRRT [...] ID -off ABs 7. Dispo: -looking for [facility] Will follow along as directed. Thank you for allowing us to participate in the care of this patient. Case discussed with primary team. Joni Monson MD [facility] ([facility]) Office phone: [phone] Office fax: [phone] 08/18/2024 Subjective Patient seen this am during [...] (108 lb 7.5 oz). Intake/Output Summary (Last hours) at 08/18/2024 1256 Last data filed at 08/18/2024 1121 Gross per 24 hour Intake 250 ml Output 3500 ml Net -3250 ml [REMOVED] Urethral Catheter Saxrcizx-nvw-Rkkehk (mL): 25 mL FIO2 needs: on 4 [...] and dry, no rash LABS: Recent Labs 08/16/2433808/17/2422208/18/24416 WBC 4.8 4.5 4.5 HGB 9.7* 9.1* 9.2* HCT 30.0* 28.7* 29.1* MCV 91.5 91.7 92.1 PLT 104* 105* 111* Recent Labs 08/16/24 03308/17/2422208/18/24416 NA 131* 132* 130* K 4.1 3.6 [...] with small pleural effusions. * Mayra Almeida, IMAGING AIDE - LOAD OUT PERSON - 08/18/2024 12:05 PM EDT Images from the original note were not included. [facility] Wound Care PROGRESS Note Sandy Deng [...] and tech present [facility]. [facility]ST [facility] H[facility] Past Medical [...] tablet by mouth 2 times daily. Cholecalciferol ([facility] Vitamin D3) 25 MCG (1000 UT) chewable tablet Chew. clopidogrel (Plavix) 75 MG tablet Take 1 tablet by mouth daily. Continuous Glucose Sensor (Dexcom G6 Sensor) misc Continuous Glucose Transmitter (Dexcom G6 transmitter) [facility] fluticasone (Flonase) 50 MCG/ACT nasal spray Administer [...] prep barrier wipe daily and PRN, leave USABILITY ARCHITECT Nutritional support Wound Care to follow Recommend to follow up at [facility] wound care center after hospital discharge. [...] and subdural hematoma who presents to the [facility] respiratory distress. Patient had been recently discharged 2 days prior to [facility], and was found altered, nasal cannula [...] (08/17/242031) 83 (08/17/242031) Arterial BP MAP (na) (08/13/24631) Temp 37.4 C (99.3 F) (08/17/242031) Pulse 77 (08/17/242031) Resp 18 (08/17/242031) SpO2 91 % (08/17/242031) Weight 108 lb 7.5 oz (49.2 kg) (08/18/24 042) BMI Body mass index is 17.51 kg/m . I/O: 08/17 0700 - 08/18 0659 In: 579 [P.O.:450; I.V.:129] Out: 25 [Urine:25] [...] Normal [] Scar/Lesion/Mass Inspection of teeth/lips/gums Dentition: [x][place] Teeth []Dentures Lips/Gums: [x]Intact []Lesion Present Mucosa: [x][place] (noted dry blood in mouth) []Moist [x]Dry [...] the last 72 hours. CBC: Recent Labs 08/16/2408/17/24 0223 08/18/24 0417 WBC 4.8 4.5 4.5 HGB 9.7* 9.1* 9.2* HCT 30.0* 28.7* 29.1* PLT 104* 105* 111* MCV 91.5 91.7 92.1 RDW 15.8* 15.8* 15.7* ABGs: No results for input(s): PHART, NEA5GKG, PO2ART, XMN6WKP, SO2ART, U8EOSYMN in thelast 72 hours. Lactic Acid: No [...] baseline oxygen, pulmonary consulted to follow on F Continue prednisone taper: 30mg 3 days, 20mg [...] and OT recommended IPR on discharge, contacted [employer] for prior auth timeline for discharge to [facility] Spoke with pt who would like to meet with SW or [employer] to discuss insurance coverage for dialysis before pt is discharged from hospital. Encourage ambulation GI Prophylaxis: Pantoprazole PO DVT Prophylaxis: Heparin subcutaneous Disposition: Transfer to [facility], [facility], expect it to take 2-3 days Cosigned by Kemar Adames DO at 08/18/2024 8:23 PM EDT Associated attestation - Kemar Adames DO - 08/18/2024 8:23 PM EDT I have personally performed a naem-vz-ummp diagnostic evaluation on this patient on date of /16/24. History, labs, imaging studies, and electronic medical record have been reviewed by me. This note documented by the []Critical Care Fellow [x]house painting instructor []TONJA reflects my history, exam, and medical [...] original note were not included. PHYSICAL THERAPY [facility] Initial Evaluation Name/MRN: Sandy Deng ([id number]) Evaluation Date: 08/17/2024 Date of : 1960 [...] tasks. Pt present and states pt at [facility] for one night and had respiratory [...] 08/12/2024 Chronic constipation 08/12/2024 Cigarette smoker 08/12/2024 Lincoln's sign present 08/12/2024 Depressive disorder 08/12/2024 Diabetic polyneuropathy ([facility] ([facility]) 08/12/2024 Dizziness 08/12/2024 Gastroparesis 08/12/2024 Hypoglycemia 08/12/2024 Injury of kidney 08/12/2024 Intermittent palpitations 08/12/2024 Intractable vomiting with nausea 08/12/2024 Respiratory failure with hypoxia ([facility]) 08/12/2024 Skin lesion of foot 08/12/2024 Hypercapnic respiratory failure ([facility]) 08/12/2024 SDH (subdural hematoma) ([facility]) 07/26/2024 COPD (chronic obstructive pulmonary disease) ([facility]) 07/26/2024 Type 1 diabetes mellitus with kidney complication ([facility]) 07/26/2024 Myocardial infarction ([facility]) 07/26/2024 Hyperlipidemia 07/26/2024 Diabetic neuropathy associated with type 1 diabetes mellitus ([facility]) 07/26/2024 Stage 4 chronic kidney disease ([facility]) 07/26/2024 Acute renal failure ([facility]) 07/26/2024 Anemia 07/26/2024 Hypocalcemia 07/26/2024 Multiple pulmonary nodules 05/17/2024 Underweight 04/14/2024 Solitary pulmonary nodule 02/06/2024 Wheezing 10/29/2023 History of coronary artery stent placement 02/04/2018 Nicotine dependence 01/08/2017 Hypertension 01/08/2017 Diabetic ketoacidosis ([facility]) ([facility]) 12/30/2012 Medical Precautions: No active [...] Responsibilities: Independent Receives Help From: Spouse Active Equipment Analyst: N/A Prior Level of Function Prior Level [...] Stairs) : 14 JH-HLM JH-HLM Score: Walked 10 steps or [...] of Care supervision is transferred to a [facility] Physical Therapist. Goals and/or treatment plan was established in collaboration with patient/family/other representatives. Cosigned by Maranda Greer PT at 08/17/2024 3:14 PM EDT * Jamye Muro, OT - 08/17/2024 10:28 AM EDT Images from the original note were not included. OCCUPATIONAL THERAPY [facility] Initial Evaluation Name/MRN: Sandy Deng ([id number]) Evaluation Date: 08/17/2024 Date of : 1960 Admission Date: 08/12/2024 12:53 PM Age: 63 y.o. Room/Bed: T3-321/T3-321 A Discharge Recommendation: IP Rehab Other: Continue to assess pending progress. Assessment IMPRESSION: Pt presented with respiratory failure, hypoxia, and AMS upon admission. Pt had recent hospital admission for septic shock and subdural hematoma, pt went to [facility] for 2 days and thenended up in ER for this admission. Pt is independent prior to first admission and requires assistance prior to this admission at [facility]. Per pt and , therapy only performed [...] Diagnosis Date COPD (chronic obstructive pulmonary disease) ([facility]) Diabetic neuropathy (HCC) Hyperlipidemia Myocardial infarct (HCC) Stage 4 chronic kidney disease (HCC) Type 1 diabetes ([facility]) Past Surgical History: Past Surgical History: Procedure Laterality Date CORONARY ANGIOPLASTY WITH STENT PLACEMENT CORONARY ANGIOPLASTY WITH STENT PLACEMENT Admission Diagnosis: Patient Active Problem List Diagnosis Date Noted Anxiety disorder due to medical condition 08/12/2024 Atherosclerosis of coronary artery 08/12/2024 Chest pain 08/12/2024 Chronic constipation 08/12/2024 Cigarette smoker 08/12/2024 Adrian's sign present 08/12/2024 Depressive disorder 08/12/2024 Diabetic polyneuropathy (CMS/HCC) ([facility]) 08/12/2024 Dizziness 08/12/2024 Gastroparesis 08/12/2024 Hypoglycemia 08/12/2024 Injury of kidney 08/12/2024 Intermittent palpitations 08/12/2024 Intractable vomiting with nausea 08/12/2024 Respiratory failure with hypoxia ([facility]) 08/12/2024 Skin lesion of foot 08/12/2024 Hypercapnic respiratory failure ([facility]) 08/12/2024 SDH (subdural hematoma) ([facility]) 07/26/2024 COPD (chronic obstructive pulmonary disease) ([facility]) 07/26/2024 Type 1 diabetes mellitus with kidney complication ([facility]) 07/26/2024 Myocardial infarction (HCC) 07/26/2024 Hyperlipidemia 07/26/2024 Diabetic neuropathy associated with type 1 diabetes mellitus ([facility]) 07/26/2024 Stage 4 chronic kidney disease ([facility]) 07/26/2024 Acute renal failure ([facility]) 07/26/2024 Anemia 07/26/2024 Hypocalcemia 07/26/2024 Multiple pulmonary nodules 05/17/2024 Underweight 04/14/2024 Solitary pulmonary nodule 02/06/2024 Wheezing 10/29/2023 History of coronary artery stent placement 02/04/2018 Nicotine dependence 01/08/2017 Hypertension 01/08/2017 Diabetic ketoacidosis (CMS/HCC) ([facility]) 12/30/2012 Medical Precautions: No active [...] is from first admission, pt was ar [facility] prior to this admission Patient admitted from home. Lives With: Spouse Type of Home: single family home Home Layout: Single Level Home Home Access: Stairs to Enter without Rails (# of stairs: 3) Bathroom Shower/Tub: Walk in Shower Toilet: Standard Home Equipment: front wheeled walker Homemaking Responsibilities: Independent Receives Help From: Spouse Active Equipment Analyst: N/A Prior Level of Function Prior Level of ADL Function: Independent Prior Level of Mobility: Independent; Device: Front wheeled walker Prior Level of Transfers: Independent Pt requires assistance at [facility], information of independent is baseline prior to [...] of Care supervision is transferred to a [facility] Services Occupational Therapist. Goals and/or treatment plan was established in collaboration with patient/family/other representatives. * Radha Kelley, DIRECTOR OF CORPORATE STRATEGY - 08/17/2024 9:48 AM EDT [facility] Respiratory Care Department Progress Note As [...] and subdural hematoma who presents to the [facility] respiratory distress. Patient had been recently discharged 2 days prior to [facility], and was found altered, nasal cannula [...] Weight 53.9 kg (118 lb 13.3 oz) (08/17/2443) BMI Body mass index is 19.18 kg/m . I/O: 08/16 0700 - 08/17 0659 In: 1006 [P.O.:706; I.V.:300] Out: 300 [Urine:300] [...] of teeth/lips/gums Lips/Gums: [x]Intact []Lesion Present Mucosa: [x][place] []Moist []Dry Neck: External Appearance Overall Appearance: [...] within last 24 hours- BMP: Recent Labs 08/15/24 0623 08/16/24 0339 08/17/24 0223 NA 130* 131* 132* K 3.9 4.1 [...] the last 72 hours. CBC: Recent Labs 08/15/24 0608/16/2433808/17/24222 WBC 5.0 4.8 4.5 HGB 9.5* 9.7* 9.1* HCT 30.3* 30.0* 28.7* PLT 90* 104* 105* MCV 92.4 91.5 91.7 RDW 15.9* 15.8* 15.8* ABGs: No results for input(s): PHART, CVI7PGH, PO2ART, PWR9WIV, SO2ART, K9WIMFSM in thelast 72 hours. Lactic Acid: No [...] would like to meet with SW or caser shoe parts to discuss insurance coverage for dialysis before pt is discharged from hospital. Encourage ambulation. GI Prophylaxis: Pantoprazole PO DVT Prophylaxis: Heparin subcutaneous Disposition: Transfer to [facility] Cosigned by Kemar Adames DO at 08/17/2024 7:07 PM EDT Associated attestation - Kemar Adames DO - 08/17/2024 7:07 PM EDT I have personally performed a unaa-wy-tcwg diagnostic evaluation on this patient on date of gqofciu38/15/24. History, labs, imaging studies, and electronic medical record have been reviewed by me. This note documented by the []Critical Care Fellow [x]house painting instructor []TONJA reflects my history, exam, and medical [...] days Referring physician: Kemar Adames DO Outpatient Hotel Security Officer: Christy Huerta DO ASSESSMENT/PLAN: #Nonoliguric UMA, dialysis dependent: SHAKER REPAIRER dependent since 07/26 last admit. Baseline Cr had been 2.4-2.8, last (04/26) Cr 2.4 eGFR 20, 24 hr idxpqei=9037 mg. -Suspected ATN in setting of infection/HD [...] Skin: warm and dry, no rash Access: [facility] TDC with clean dressing DATA: LABS: Recent Labs 08/14/24 0404 08/15/24 0608/16/24 0339 WBC 5.2 5.0 4.8 HGB 9.2* 9.5* 9.7* HCT 28.7* 30.3* 30.0* MCV 91.1 92.4 91.5 PLT 79* 90* 104* Recent Labs 08/14/24 0404 08/15/24 0623 08/16/24 0339 NA 130* 130* 131* K 3.5 [...] 231 08/12/2024 Lab Results Component Value Date IICWPTSE12 932 (H) 08/12/2024 FOLATE 10.8 08/12/2024 Lab [...] LABFUNG IMAGING: POCT glucose meter Performed by: [facility], [address] [place] [id number] CLIA ID: [id number] POCT glucose meter Performed by: [facility], [address] [place] [id number] CLIA ID: [id number] Signed: Jose Carlos Medrano MD Nephrology [facility] ([facility]) Pager: [phone] Office Office * Sherri Domingo APRN - LOAD OUT PERSON - 08/16/2024 10:32 AM EDT Images from the original note were not included. [facility] PROGRESS Note Sandy Deng [...] tablet by mouth 2 times daily. Cholecalciferol ([facility] Vitamin D3) 25 MCG (1000 UT) chewable [...] prep barrier wipe daily and PRN, leave USABILITY ARCHITECT Nutritional support Wound Care to follow Recommend to follow up at [facility] wound care center after hospital discharge. [...] from the original note were not included. [facility] - Infectious Diseases Attending Progress Note Subjective: [...] Results Component Value Date/Time NA 131 (L) 08/16/2024 0339 K 4.1 08/16/2024338 CL 98 08/16/2024338 CO2 27 08/16/2024338 BUN 38 (H) 08/16/2024338 CREATININE 3.90 (H) 08/16/2024338 GLUCOSE 362 (H) 08/16/2024338 CALCIUM 7.2 (L) 08/16/2024338 PROT 5.2 (L) 08/12/20242332 BILITOT 0.9 08/12/20242332 ALKPHOS 52 08/12/20242332 AST 18 08/12/20242332 ALT 13 08/12/20242332 PROCAL 0.16 (H) 08/05/2024 0256 PROCAL 2.48 (H) 07/26/2024 1850 Lab Results Component Value Date/Time WBC 4.8 08/16/2024338 HGB 9.7 (L) 08/16/2024338 HGB 8.3 08/13/2024 0658 HCT 30.0 (L) 08/16/2024338 PLT 104 (L) 08/16/2024338 LYMPHOPCT 10.1 (L) 08/16/2024338 LYMPHOPCT 7 (L) 08/13/2024 0507 MONOPCT 6.9 08/16/2024338 MONOPCT 0 (L) 08/13/2024 [...] and subdural hematoma who presents to the [facility] respiratory distress. Patient had been recently discharged 2 days prior to [facility], and was found altered, nasal cannula [...] index is 20.1 kg/m . I/O: 08/15 0700 - 08/16 06 In: 418 [P.O.:318; I.V.:100] Out: 525 [Urine:525] [...] Normal [] Scar/Lesion/Mass Inspection of teeth/lips/gums Dentition: [][place] Teeth []Dentures Lips/Gums: [x]Intact []Lesion Present Mucosa: [x][place] []Moist []Dry Neck: External Appearance Overall Appearance: [...] last 24 hours- BMP: Recent Labs 08/14/24 0404 08/15/24 0623 08/16/24 0339 NA 130* 130* 131* K 3.5 [...] the last 72 hours. CBC: Recent Labs 08/14/24 0404 08/15/24 0623 08/16/24 0339 WBC 5.2 5.0 4.8 HGB 9.2* 9.5* 9.7* HCT 28.7* 30.3* 30.0* PLT 79* 90* 104* MCV 91.1 92.4 91.5 RDW 16.4* 15.9* 15.8* ABGs: Recent Labs 08/13/24 0658 PHART 7.291* YFQ8RGH 49.4* PO2ART 84.7 SUN9GGB 23.3 Q3FMUAZN 30% Oxygen Lactic Acid: Recent Labs 08/13/24 [...] would like to meet with SW or caser shoe parts to discuss insurance coverage for dialysis before pt is discharged from hospital. GI Prophylaxis: Pantoprazole PO DVT Prophylaxis: SCDs, subcutaneous heparin Disposition: Transfer to [facility] Cosigned by Kemar Adames DO at 08/16/2024 8:35 PM EDT Associated attestation - Kemar Adames DO - 08/16/2024 8:35 PM EDT I have personally performed a bcrc-is-evre diagnostic evaluation on this patient on date of xqlfadx42/14/24 . History, labs, imaging studies, and electronic medical record have been reviewed by me. This note documented by the [x]house painting instructor []TONJA reflects my history, exam, and medical [...] Nephro recs. Resume heparin for DVT prophy. F tx. NonCCM time: 35min * Saroj Gaffney MD - 08/15/2024 12:46 PM EDT Images from the original note were not included. Nephrology Consult Note Consult date: 08/15/24 12:46 PM Patient: Sandy Deng Room number: T3-321/T3-321 A Date of Admit: 08/12/2024 LOS: 3 days Referring physician: Elizabeth Tyler MD Outpatient Hotel Security Officer: Dr. Christy Huerta Assessment / Plan 63 [...] hypercapneic respiratory failure. #Nonoliguric UMA, dialysis dependent: SHAKER REPAIRER dependent since 07/26 last admit. Baseline Cr had been 2.4-2.8, last (04/26) Cr 2.4 eGFR 20, 24 hr xntherm=0958 mg. -Suspected ATN in setting of infection/HD [...] last admit -On vanc/zosyn -ID evaluating Access: [facility] 07/29 Recommendations: -No acute indications for HD, next treatment tomorrow 08/16 -Repeat lasix 100 mg IV today -Will follow pancytopenia workup per primary, using citrate locks for HD line pending HIT testing -Renal function panel daily Thank you for allowing us to participate in the care of this patient. Please call with any questions. Saroj Gaffney MD [facility] ([facility]) Office phone: [phone] Office fax: [phone] Pager: [phone] 08/15/24 Subjective No acute events. Fairly modest response to high dose lasix yesterday and solutes uptrending. Still short of breath today and with some LE edema. Past Medical History Past Medical History: Diagnosis Date COPD (chronic obstructive pulmonary disease) (HCC) Diabetic neuropathy (HCC) Hyperlipidemia Myocardial infarct (HCC) Stage 4 chronic kidney disease (HCC) Type 1 diabetes (HCC) Medications Scheduled Meds:aspirin, 81 mg, Oral, Daily [...] and subdural hematoma who presents to the [facility] respiratory distress. Patient had been recently discharged 2 days prior to [facility], and was found altered, nasal cannula [...] (08/13/24 0632) Temp 36.7 C (98 F) (08/15/24) Pulse 81 (08/15/24) Resp 16 (08/15/24) SpO2 100 % (08/15/24) Weight 61.5 kg (135 lb 9.3 oz) (08/14/24 0600) BMI Body mass index is 21.88 kg/m . I/O: 08/14 0700 - 08/15 659 In: 735 [P.O.:236; I.V.:499] Out: 200 [Urine:200] [...] Normal [] Scar/Lesion/Mass Inspection of teeth/lips/gums Dentition: [][place] Teeth []Dentures Lips/Gums: [x]Intact []Lesion Present Mucosa: [x][place] []Moist []Dry Neck: External Appearance Overall Appearance: [...] within last 24 hours- BMP: Recent Labs 08/12/24233208/13/2450608/14/24 0404 NA 130* 134* 130* K 4.2 3.7 3.5 CL 100 103 96* CO2 22 19* 25 BUN 20* 18* 18* CREATININE 2.56* 2.43* 1.91* CALCIUM 6.9* 7.1* 6.8* MG -- 1.5* 2.1 PHOS -- 3.0 2.9 LFTs: Recent Labs 08/12/24233208/13/24 1046 AST 18 -- ALT 13 -- [...] 2333 08/13/24 0658 PHART -- -- 7.291* RXW7JOU -- -- 49.4* PO2ART -- -- 84.7 MQK8YBV -- -- 23.3 [id number] Bi-PAP 30% Oxygen 30% Oxygen Lactic Acid: [...] PO DVT Prophylaxis: SCDs Disposition: Transfer to [facility] Cosigned by Elizabeth Tyler MD at 08/15/2024 1:22 PM EDT Associated attestation - Elizabeth Tyler MD - 08/15/2024 1:22 PM EDT I have personally performed a ufqa-rk-zxii diagnostic evaluation on this patient on date of aenjhmg64/13/24. History, labs, imaging studies, and electronic medical record have been reviewed by me. This note documented by the [x]house painting instructor []TONJA reflects my history, exam, and medical [...] days Referring physician: Elizabeth Tyler MD Outpatient Hotel Security Officer: Dr. Christy Huerta Assessment / Plan 63 [...] hypercapneic respiratory failure. #Nonoliguric UMA, dialysis dependent: SHAKER REPAIRER dependent since 07/26 last admit. Baseline Cr had been 2.4-2.8, last (04/26) Cr 2.4 eGFR 20, 24 hr ffetkev=0858 mg. -Suspected ATN in setting of infection/HD [...] unit now weaned to 3L NC -CXR 10/10 with mild pulm edema and small bilat effusions -UOP 289 ccs/24 hrs without diuretic Pancytopenia: Improving. WBCs 5.2, Hgb 9.2, Plt 79 -In setting of recent infection and broad spectrum abx -HIT antibody sent -LDH/hapto normal #ID: -Completed course of meropenem for PsA/staph pneumonia last admit -On vanc/zosyn -ID evaluating Access: [facility] 07/29 Recommendations: -No acute indications for HD, monitoring for recovery -Lasix challenge today 100 mg IV x1 -Will follow pancytopenia workup per primary, using citrate locks for HD line pending HIT testing -Renal function panel daily Thank you for allowing us to participate in the care of this patient. Please call with any questions. Saroj Gaffney MD [facility] ([facility]) Office phone: [phone] Office fax: [phone] Pager: [phone] 08/14/24 Subjective No acute events. No issues with HD yesterday, UF 2.5L. Patient somewhat more awake/alert today. Slight shortness of breath and wheezing. No other complaints. Past Medical History Past Medical History: Diagnosis Date COPD (chronic obstructive pulmonary disease) (HCC) Diabetic neuropathy (HCC) Hyperlipidemia Myocardial infarct (HCC) Stage 4 chronic kidney disease (HCC) Type 1 diabetes (HCC) Medications Scheduled Meds:aspirin, 81 mg, Oral, Daily [...] Position: Pulse: 72 71 77 71 Resp: Temp: 36.7 C (98.1 F) TempSrc: Temporal [...] Yes, addressed in today's progress note Anticipated Beth[place] Medications (ICU initiated) or Dose Changes and [...] hours of ICU transfer, page MICU res social organization professor for clarifications. * Janell Booker MD - [...] had [facility], and today was found altered, nasal [...] index is 21.88 kg/m . I/O: 08/13 700 - 08/14 659 In: 1376.5 [I.V.:1006] Out: 289 [Urine:289] Ventilator: [...] Normal [] Scar/Lesion/Mass Inspection of teeth/lips/gums Dentition: [][place] Teeth []Dentures Lips/Gums: [x]Intact []Lesion Present Mucosa: [][place] []Moist []Dry Neck: External Appearance Overall Appearance: [...] last 24 hours BMP: Recent Labs 08/12/24 2333 08/13/24 0507 [...] 08/12/24 23308/13/24 0658 PHART -- -- 7.291* KPH1AIJ -- -- 49.4* PO2ART -- -- 84.7 JFK0RZE -- -- 23.3 [id number] Bi-PAP 30% Oxygen 30% Oxygen Lactic Acid: [...] EEG with video is abnormal. Continuous diffuse rbikzqsh-ez-waqcnc diffuse slowing is seen unresponsive to stimulation. REM sleep architecture is observed. At times, fronto-centrally predominant fast activity is observed reminiscent of sleep spindles. No interictal epileptiform activity nor seizures are observed. The findings are supportive of a ygqaunae-ud-lslwjk global encephalopathy non- specific as to etiology. [...] PM EDT I have personally performed a bpqd-zj-dqua diagnostic evaluation on this patient on date of iphkcle36/12/24. History, labs, imaging studies, and electronic medical record have been reviewed by me. This note documented by the [x]house painting instructor []TONJA reflects my history, exam, and medical [...] Pulmonary to follow on floor. * Bernadette Abraham, SHAKER REPAIRER - 08/14/2024 12:36 AM EDT [facility] Respiratory Care Department Progress Note Comment [...] the care of this patient, * Lidia Rojas, RICKY - 08/13/2024 8:34 AM EDT Nutrition Assessment Type and Reason for Visit: Initial, Positive Nutrition Screen (pressure ulcer/wound) Nutrition Recommendations/Plan: 1. Pt is currently NPO, observed on NIV and cEEG at time of assessment. Pt with recent admit requiring intubation, was followed by RD and MANAGER CHINA, underwent MBSS 08/04 with pureed/mildly thick liquids recs, was later upgraded to regular textures/mildly thick liquids. Per paper chart at [facility] pt was ordered a Soft and Bite Sized Diet with Mildly Thick Liquids. Did not appear to be receiving ONS. Recommend pt not be without nutrition for >72 hours if medically able. --> if pt is able to advance oral diet, consider goal of ALLI, CHO Controlled and monitor renal labs and need for additional therapeutic restrictions in setting of ESRD/HD. Consider MANAGER CHINA evaluation for texture/consistency recommendations. Do feel that [...] data (need further clarification on PO intake MARKET RESEARCH WORKER, pt weight appeared to be downtrending during recent admit however is now back up to similar weight at start of recent admit, will continue to monitor criteria) Context: Acute Illness Findings of the 6 clinical characteristics of malnutrition: Energy Intake: Unable to assess (during recent admit pt required intubation and EN, s/p MBSS with altered consistency diet recs, at [facility] pt was ordered soft and bite sized/mildly thick liquids, unclear intake MARKET RESEARCH WORKER, pt is currently NPO and requiring NIV) [...] Mild (BUE pitting, BLE non-pitting per flowsheets) Academic Department Chair Strength: Not Performed Nutrition Assessment: pt with PMH significant for COPD (4L NC at baseline), ESRD on HD, DM1, HLD and recent admission to ICU for septic shock and subdural hematoma (07/26-08/10/24) who presented to [facility] ED on 08/12/24 in respiratory distress, pt was d/c to [facility] following recent admit and was found with altered mentation, nasal cannula was taken off and pulse ox at 80%, pt brought to [facility] ED for assessment, in the ED mental [...] time, of note pt was followed by MANAGER CHINA during recent admit- she was on altered consistency diet, underwent MBSS on 08/04 with pureed/mildly thick liquids recs, was later upgraded to regular textures/mildly thick liquids on 08/09 prior to d/c, at time of assessment pt is sleeping soundly in bed, NIV in place and pt on cEEG, [facility] Soft and Bite Sized [...] On: Kcal/kg Weight Used for Energy Requirements: [place] Weight for Energy Calculation (kg): 59.1 kg Total Energy Requirements (kcals/day): 1655-1891kcals/day Weight Used for Protein Requirements: [place] Weight in Kg Used for Protein Requirements: [...] admit --> 07/28/24: 134# bedscale, 08/07/24:126# bedscale) [place] Body Weight (lbs) (Calculated): 130 lbs [place] Body Weight (Kg) (Calculated): 59 kg % [place] Body Weight (Calculated): 104.6 % BMI (kg/m2) [...] determine Lidia Rojas RD Contact: available via [employer] or *[phone] * Janell Booker MD - 08/13/2024 6:23 [...] [facility], and today was found altered, nasal [...] index is 22.06 kg/m . I/O: 08/12 700 - 08/13 659 In: 2480.5 [I.V.:2075] Out: 501 [Urine:501] Ventilator: Resp Rate (Set): [...] Normal [] Scar/Lesion/Mass Inspection of teeth/lips/gums Dentition: [][place] Teeth []Dentures Lips/Gums: [x]Intact []Lesion Present Mucosa: [][place] []Moist []Dry Neck: External Appearance Overall Appearance: [...] 24 hours BMP: Recent Labs 08/12/24 1337 08/12/24 2333 08/13/24 0507 NA 132* 130* 134* K 3.6 4.2 3.7 CL 100 100 103 CO2 28 22 19* BUN 19* 20* 18* CREATININE 2.38* 2.56* 2.43* CALCIUM 6.6* 6.9* 7.1* MG -- -- 1.5* PHOS -- -- 3.0 LFTs: Recent Labs 08/12/24233208/13/24 1046 AST 18 -- ALT 13 -- PROT 5.2* -- ALBUMIN 2.9* -- BILITOT 0.9 -- BILIRUBINU -- Negative ALKPHOS 52 -- Glucose: Recent Labs 08/10/24 0735 08/10/24 0824 08/10/24 0911 08/10/24 1005 08/10/24 1126 08/10/24 1318 08/11/24 0600 08/12/24 1337 08/12/24 1820 08/12/24233208/13/24 0057 08/13/24 0507 08/13/24 0509 GLUCOSE 61* [...] 2333 08/13/24 0658 PHART -- -- 7.291* KKT6ETA -- -- 49.4* PO2ART -- -- 84.7 ZSF0MQX -- -- 23.3 [id number] Bi-PAP 30% Oxygen 30% Oxygen Lactic Acid: [...] EEG with video is abnormal. Continuous diffuse hupaydyq-au-bdcziz diffuse slowing is seen unresponsive to stimulation. REM sleep architecture is observed. At times, fronto-centrally predominant fast activity is observed reminiscent of sleep spindles. No interictal epileptiform activity nor seizures are observed. The findings are supportive of a durpxswe-sw-vrczyz global encephalopathy non- specific as to etiology. [...] PM EDT I have personally performed a qtpu-ll-sqiv diagnostic evaluation on this patient on date of /11/24. History, labs, imaging studies, and electronic medical record have been reviewed by me. This note documented by the [x]house painting instructor []TONJA reflects my history, exam, and medical [...] so far today, excludingprocedures. documented in this [facility]10-21-2024 Nurse Note* Liliana Mott - 08/23/2024 3:02 PM EDT Patient Name: Sandy Deng Patient : 1960 Acct: [id number] Date of Admission: 08/12/2024 [facility] A Code Status: Full Code Allergies: No [...] 08/23/2024313 CALCIUM 7.3 (L) 08/23/2024313 PHOS 2.5 08/23/2024 0314 IV Drips and Rate/Dose Safety - Before each treatment: Dialysis Machine No.: [id number] RO Machine Number: [id number] Dialyzer Lot No.: [id number] Tubing Lot Number: [id number] All Connections Secure: Yes Venous Parameters Set: Yes Arterial Parameters Set: Yes NS Bag: Yes Saline Line Double Clamped: Yes Dialyzer: Nipro Prime Volume (mL): 200 mL RO Machine Number: [id number] RO Machine Log Sheet Completed: Yes Machine Alarm Self Test: Completed, Passed (1315) (08/23/24 1323) Air Foam Detector: Tested, Proper Function, pH Reading Extracorporeal Circuit Tested for Integrity: Yes Machine Conductivity: 13.6 Manual Conductivity: 13.6 Manual Ph: 7 Bleach Test (Neg): Yes Bath Temperature: 36 C (96.8 F) Conductivity Meter Serial #: [id number] Machine Functioning Alarm Free? Yes Dialysis Bath: K+ (Potassium): 4 Ca+ (Calcium): 2.5 Na+ (Sodium): 137 HCO3 (Bicarb): 35 Bicarbonate Concentrate Lot No.: [id number] Acid Concentrate Lot No.: [id number] Chlorine Testing - Before each treatment and every 4 hours: Time On: 1426 Time Off: 1726 Treatment Goal: 2-3L as tolerated Weight Height: 167.6 cm (5' 6) (08/22/249) Weight: 55.4 kg (122 lb 2.2 oz) (08/23/24 06) BMI (Calculated): 19.72 (08/23/24 0637) 1st check: less than 0.1 ppm at: [...] pt stable, lines secured. uf removed is 2050 08/23/24 1645 400 mL/min 710 ml/hr -130 mmHg [...] src Pulse Resp SpO2 Height Weight 08/23/24 172 120/50 -- -- 66 -- -- -- -- 08/23/24 172 121/54 36.4 C (97.6 F) -- 71 16 100 % -- -- 08/23/24 171 112/52 -- -- 71 -- -- -- [...] chat Response: No new orders Notification Time: 0647 Reason for Communication: Evaluate (bladder scan 386mL) Provider Role: Resident Method of Communication: Secure chat Response: No new orders Notification Time: 0647 Handoff complete and report given to Primary [...] Name: Sandy Deng Patient : 1960 Acct: [id number] Date of Admission: 08/12/2024 [facility] Code Status: Full Code [...] artery Chest pain Chronic constipation Cigarette smoker Lincoln's sign present Depressive disorder Diabetic ketoacidosis (CMS/HCC) [...] 0753 -- -- -- Tachypnea -- Clear;Diminished [place] Dry;Cool -- Soft;Rounded;Nondistended Active;Audible 08/21/24 1010 Alert (0) -- Regular -- Bi-PAP Diminished [place] Cool;Dry Fair Soft Active 08/21/24 1320 Alert (0) x3 Regular -- Bi-PAP Diminished [place] Cool;Dry Fair Soft Active Labs Lab Results Component Value Date/Time WBC 6.2 08/21/2024313 HGB 9.8 08/21/2024 0825 HCT 30.6 (L) 08/21/2024313 PLT 157 08/21/2024313 NA 133 (L) 08/21/2024313 K 3.2 (L) 08/21/2024313 CL 99 08/21/2024313 CO2 27 08/21/2024313 BUN 47 (H) 08/21/2024313 CREATININE 4.52 (H) 08/21/2024313 CALCIUM 7.8 (L) 08/21/2024313 PHOS 3.5 08/21/2024313 IV Drips and Rate/Dose Safety - Before each treatment: Dialysis Machine No.: [id number] PerBlue Machine Number: [id number] Dialyzer Lot No.: [id number] Tubing Lot Number: [id number] All Connections Secure: Yes Venous Parameters Set: Yes Arterial Parameters Set: Yes NS Bag: Yes Saline Line Double Clamped: Yes Dialyzer: Nipro Prime Volume (mL): 200 mL RO Machine Number: [id number] RO Machine Log Sheet Completed: Yes Machine [...] HCO3 (Bicarb): 35 Bicarbonate Concentrate Lot No.: [id number] Acid Concentrate Lot No.: [id number] Chlorine Testing - Before each treatment and every 4 hours: Time On: 1015 Time Off: 1315 Treatment Goal: 2000 Weight Height: 167.6 cm (5' 6) (08/18/24 1207) Weight: 55.2 kg (121 lb 11.1 oz) (08/21/24 0400) BMI (Calculated): 19.65 (08/21/24 040) 1st check: less than 0.1 ppm [...] -- 61 -- 100 % -- 08/20/24 194 -- -- -- 55 19 100 % [...] (First Initial, Last Name, Title): Carlos Sanchez Rn Education Person Educated: Patient Knowledge Base: [...] Name: Sandy Deng Patient : 1960 Acct: [id number] Date of Admission: 08/12/2024 Room/Bed: T3-321/T3-321 A Code Status: Full Code Allergies: No [...] Lab Results Component Value Date/Time WBC 4.5 08/18/2024 0417 HGB 9.2 (L) 08/18/2024 0417 HGB 8.3 08/13/202458 HCT 29.1 (L) 08/18/2024416 PLT 111 (L) 08/18/2024416 NA 130 (L) 08/18/2024416 K 3.8 08/18/2024416 CL 99 08/18/2024416 CO2 27 08/18/2024416 BUN 35 (H) 08/18/2024416 CREATININE 3.57 (H) 08/18/2024416 CALCIUM 7.9 (L) 08/18/2024416 PHOS 3.4 08/18/2024416 IV Drips and Rate/Dose Safety - Before each treatment: Dialysis Machine No.: [id number] RO Machine Number: [id number] Dialyzer Lot No.: [id number] Tubing Lot Number: [id number] All Connections Secure: Yes Venous Parameters Set: Yes Arterial Parameters Set: Yes NS Bag: Yes Saline Line Double Clamped: Yes Dialyzer: Nipro Prime Volume (mL): 250 mL RO Machine Number: [id number] RO Machine Log Sheet Completed: Yes Machine Alarm Self Test: Completed, Passed (08/18/24799) Air Foam Detector: Tested, Proper Function, pH Reading Extracorporeal Circuit Tested for Integrity: Yes Machine Conductivity: 13.9 Manual Conductivity: 14 Manual Ph: 7.2 Bleach Test (Neg): Yes Bath Temperature: 36 C (96.8 F) Conductivity Meter Serial #: [id number] Machine Functioning Alarm Free? Yes Dialysis Bath: K+ (Potassium): 3 Ca+ (Calcium): 2.5 Na+ (Sodium): 137 HCO3 (Bicarb): 35 Bicarbonate Concentrate Lot No.: [id number] Acid Concentrate Lot No.: [id number] Chlorine Testing - Before each treatment and [...] (mmHg) TMP DFR Access Visible Intra-Hemodialysis Comments 08/18/24 0815 400 mL/min 1000 ml/hr -120 mmHg 110 [...] -- 77 -- (!) 77 % -- 08/17/241942 -- -- -- 69 16 97 % [...] Name: Sandy Deng Patient : 1960 Acct: [id number] Date of Admission: 08/12/2024 Room/Bed: T3-321/T3321 A Code Status: Full Code Allergies: No [...] artery Chest pain Chronic constipation Cigarette smoker Lincoln's sign present Depressive disorder Diabetic ketoacidosis (CMS/HCC) [...] 08/16/2024338 CALCIUM 7.2 (L) 08/16/2024338 PHOS 4.5 08/16/2024338 IV Drips and Rate/Dose Safety - Before each treatment: Dialysis Machine No.: [id number] RO Machine Number: [id number] Dialyzer Lot No.: [id number] Tubing Lot Number: [id number] All Connections Secure: Yes Venous Parameters Set: Yes Arterial Parameters Set: Yes NS Bag: Yes Saline Line Double Clamped: Yes Dialyzer: Nipro Prime Volume (mL): 200 mL RO Machine Number: [id number] RO Machine Log Sheet Completed: Yes Machine Alarm Self Test: Completed, Passed (1341) (08/16/24 1341) Air Foam Detector: Tested, Proper Function Extracorporeal Circuit Tested for Integrity: Yes Machine Conductivity: 13.4 Manual Conductivity: 13.8 Manual Ph: 7.4 Bleach Test (Neg): Yes Bath Temperature: 36 C (96.8 F) Conductivity Meter Serial #: [id number] Machine Functioning Alarm Free? Yes Dialysis Bath: K+ (Potassium): 3 Ca+ (Calcium): 2.5 Na+ (Sodium): 137 HCO3 (Bicarb): 35 Bicarbonate Concentrate Lot No.: [id number] Acid Concentrate Lot No.: [id number] Chlorine Testing - Before each treatment and every 4 hours: Time On: 1351 Time Off: 1651 Treatment Goal: 3L as tolerated per Dr. Medrano at bedside Weight Height: 167.6 cm (5' 6) (08/13/24 0813) Weight: 56.5 kg (124 lb 9 oz) (08/16/24 1345) BMI (Calculated): 20.11 (08/16/24 1345) 1st check: [...] Name: Sandy Deng Patient : 1960 Acct: [id number] Date of Admission: 08/12/2024 Room/Bed: T3-321/T3-321 A Code Status: Full Code Allergies: No [...] artery Chest pain Chronic constipation Cigarette smoker Lincoln's sign present Depressive disorder Diabetic ketoacidosis (CMS/HCC) [...] 134 (L) 08/13/2024 0507 K 3.7 08/13/2024 0507 CL 103 08/13/2024 0507 CO2 19 (L) 08/13/2024 0507 BUN 18 (H) 08/13/2024 0507 CREATININE 2.43 (H) 08/13/2024 0507 CALCIUM 7.1 (L) 08/13/2024 0507 PHOS 3.0 08/13/2024 0507 IV Drips and Rate/Dose Safety - Before each treatment: Dialysis Machine No.: [id number] RO Machine Number: [id number] All Connections Secure: Yes Venous Parameters Set: Yes Arterial Parameters Set: Yes NS Bag: Yes Saline Line Double Clamped: Yes Dialyzer: Nipro Prime Volume (mL): 200 mL RO Machine Number: [id number] RO Machine Log Sheet Completed: Yes Machine Alarm Self Test: Completed, Passed (08/13/24 152) Air Foam Detector: Tested, Proper Function, pH Reading Extracorporeal Circuit Tested for Integrity: Yes Machine Conductivity: 13.8 Manual Conductivity: 13.8 Manual Ph: 7 Bleach Test (Neg): Yes Bath Temperature: 36 C (96.8 F) Conductivity Meter Serial #: [id number] Machine Functioning Alarm Free? Yes Dialysis Bath: K+ (Potassium): 3 Ca+ (Calcium): 2.5 Na+ (Sodium): 137 HCO3 (Bicarb): 35 Chlorine Testing - Before each treatment and every 4 hours: Time On: 1525 Time Off: 1824 Treatment Goal: 2-2.5 Weight Height: 167.6 cm (5' 6) (08/13/24 0813) Weight: 62 kg (136 lb 11 oz) (08/13/24548) BMI (Calculated): 22.07 (08/13/24548) 1st check: less than 0.1 ppm at: [...] -- 79 21 99 % -- -- 08/12/24 2306 -- -- -- 77 -- 100 % [...] Primary RN (First Initial, Last Name, Title): Farnk Bhakta RN Education Person Educated: Patient Knowledge [...] Stroke team narrator completed. documented in this [facility]10-21-2024 Consult note* Eladio Lebron MD - [...] tablet by mouth 2 times daily. Cholecalciferol ([facility] Vitamin D3) 25 MCG (1000 UT) chewable [...] 10 days. Insulin Disposable Pump (Omnipod 5 [id number] Intro Gen 5) kit Insulin Disposable Pump (Omnipod 5 [id number] Pods Gen 5) misc insulin glargine (Lantus) [...] contact the on-call urology resident in the library science professor for void trial instructions. Would recommend doing void trial prior to the day of anticipated discharge if able. Follow up with urology for continued outpatient management Please page the social organization professor urology resident with any questions or concerns Thank you for allowing me to participate in the care of your patient Will discuss plan with Dr. Steen. Attestation to follow. Please do not hesitate to reach out to the urology team with additional questions or concerns On-Call Finder --> [facility] Urology Page on-call resident(s) first Eladio Lebron [...] mouth 2 times daily. Historical Provider, Cholecalciferol ([facility] Vitamin D3) 25 MCG (1000 UT) chewable tablet Chew. Historical Provider, clopidogrel (Plavix) 75 MG tablet Take 1 tablet by mouth daily. Historical Provider, Continuous Glucose Sensor (Dexcom G6 Sensor) [facility] 07/22/24 Historical Provider, Continuous Glucose Transmitter (Dexcom G6 transmitter) [facility] 07/25/24 Historical Provider, estradiol (Estrace) 1 MG [...] Espana DO Insulin Disposable Pump (Omnipod 5 [id number] Intro Gen 5) kit 12/03/23 Historical Provider, Insulin Disposable Pump (Omnipod 5 [id number] Pods Gen 5) misc 07/15/24 Historical Provider, insulin glargine (Lantus) 100 UNIT/ML injection Inject 3 Units under the skin Nightly. 08/10/24 Jenae Espana DO ipratropium-albuterol (Duo-Neb) 0.5-2.5 mg/3 mL nebulizer solution inhale contents of 1 vial ( 3 MLS ) in nebulizer by mouth and INTO THE LUNGS every 4 hours 10/29/23 Historical Provider, MD Patel 10 MG tablet Take 1 tablet by [...] EVERYDAY FOR ONE DAY Historical Provider, MD Margareth Peck 200-62.5-25 MCG/ACT aerosol powder 05/12/24 Historical Provider, [...] Normal [] Scar/Lesion/Mass Inspection of teeth/lips/gums Dentition: [x][place] Teeth []Dentures Lips/Gums: [x]Intact []Lesion Present Mucosa: [][place] []Moist [x]Dry Neck: External Appearance Overall Appearance: [...] 08/20/24 1024 08/20/24 1250 PHART 7.209* 7.244* [id number] 71.5* 68.4* PO2ART 63.4* 36.2* [id number] 27.9* 28.9* [id number] Nasal cannula Bi-PAP Labs in Last 3 [...] PM EDT I have personally performed a xbew-ny-aooh diagnostic evaluation on this patient on date of pzcjykq82/18/24. History, labs, imaging studies, and electronic medical record have been reviewed by me. This note documented by the [x]Critical Care Fellow []house painting instructor []TONJA reflects my history, exam, and medical [...] from the original note were not included. [facility] - Infectious Diseases Attending Consult Note Reason for Consult: Respiratory distress, change in MS,lethargy, and pancytopenia and candiduria History of Present Illness: 63 F, DMT1, COPD on 4 L, recently admitted to [facility] form 07/26-08/10 for Respiratory failure, treated as aspiration pNA already, septic shock, off presors, UMA/CKD, and finally transferred to Rehab. Overthere she pulled her NC< and found altered, hypoxic, lethargic. Transferred back to [facility], and required NIV initially. Today she is [...] 2 puff Inhalation q6h PRN Ana Rosa Carlin, DO [Held by provider] aspirin EC tablet 81 mg 81 mg Oral Daily Ana Rosa Carlin DO [Held by provider] atorvastatin (Lipitor) tablet 20 mg 20 mg Oral Nightly Ana Rosa Carlin DO busPIRone (Buspar) tablet 7.5 mg 7.5 mg Oral BID May Wang DO [Held by provider] clopidogrel (Plavix) tablet 75 mg 75 mg Oral Daily Ana Rosa Carlin, DO dextrose 5 % infusion 100 mL/hr IntraVENous PRN Ana Rosakosta Carlin DO dextrose 50 % solution 12.5 [...] Rosa Carlin DO 5,000 Units at 08/12/24 2050 insulin glargine (Lantus) injection 2 Units 2 Units SubCUTAneous Nightly Janell Booker MD Insulin Lispro (Humalog) injection 0-12 Units 0-12 Units SubCUTAneous TID Singh Lopez MD ipratropium-albuterol (Duo-Neb) 0.5-2.5 mg/3 mL nebulizer solution 3 mL 3 mL Nebulization TID Ana Rosa Carlin DO 3 mL at 08/13/24 0902 lisinopril tablet 2.5 mg 2.5 mg Oral Daily Ana Rosa Carlin DO [START ON 08/14/2024] methylPREDNISolone sod suc (PF) (SOLU-Medrol) 40 MG injection 40 mg 40 mg IntraVENous q24h Janell Booker MD [Held by provider] metoprolol tartrate (Lopressor) tablet 50 mg 50 mg Oral BID Ana Rosa Carlin DO mirtazapine (Remeron) tablet 7.5 mg 7.5 mg Oral Nightly May Sherice Reamsnyder, DO [Held by provider] mometasone-formoterol (Dulera 200) 200-5 MCG/ACT inhaler 2 puff 2 puff Inhalation BID Ana Rosa Edie Carlin, DO mupirocin (Bactroban) 2 % ointment 1 Application 1 Application Nasal BID Ana Rosa Edie Carlin, DO 1 Application at 08/13/24 0906 ondansetron ODT (Zofran-ODT) disintegrating tablet 4 mg 4 mg Oral q8h PRN Ana Rosa Edie Carlin, DO Or ondansetron (Zofran) injection 4 mg 4 mg IntraVENous q6h PRN Ana Rosa Edie Carlin, DO QUEtiapine (SEROquel) tablet 25 mg 25 mg Oral Nightly May Wang DO 25 mg at 08/13/24 0131 sodium chloride 0.9 % infusion 250 mL/hr IntraVENous PRN April Soto MD [Held by provider] tiotropium (Spiriva Respimat) 2.5 MCG/ACT inhaler 2 puff 2 puff Inhalation DailyAmanda Edie Pros, DO Allergies: No Known Allergies Social History: [...] -- 79 21 99 % -- -- 08/12/24 2306 -- -- -- 77 -- 100 % [...] edema with small pleural effusions. Antimicrobials,Start/End Dates: Adoofbm69/10- Impression: 63 F, admitted with: Respiratory distress- [...] days Referring physician: Elizabeth Tyler MD Outpatient Hotel Security Officer: Dr. Christy Huerta Reason for Consult UMA [...] hypercapneic respiratory failure. #Nonoliguric UMA, dialysis dependent: SHAKER REPAIRER dependent since 07/26 last admit. Baseline Cr had been 2.4-2.8, last (04/26) Cr 2.4 eGFR 20, 24 hr dgcxeeq=3150 mg. -Suspected ATN in setting of infection/HD [...] -S/p 1 dose vanc -ID evaluating Access: RINessa TDC 07/29 Case was discussed with ICU team. [...] call with any questions. Saroj Gaffney MD [facility] ([facility]) Office phone: [phone] Office fax: [phone] Pager: [phone] 08/13/24 History of Present Illness Sandy Deng [...] with hypercapneic respiratory failure. Recently discharged to [facility] from [facility] after admission for sepsis/shock as above. Now [...] Does not appear patient had HD at [facility] 08/12 (last treatment here 08/10), Cr relatively stable in 2.3-2.5 range since 08/11. CXR on readmit with mild pulm edema and small pleural effusions. Did notably receive about 3.2L LR since readmission. Seen at bedside in ICU this AM. Transitioned to MT. Awake but confused, denies acute complaints. Past [...] Lying Pulse: 81 79 86 83 Resp: Temp: 37.3 C (99.2 F) TempSrc: Axillary [...] 11 ALBUMIN -- 2.9* -- Recent Labs 08/12/24 2333 ALT 13 [...] from the original note were not included. [facility] CONSULT Note Sandy Deng [...] tablet by mouth 2 times daily. Cholecalciferol ([facility] Vitamin D3) 25 MCG (1000 UT) chewable tablet Chew. clopidogrel (Plavix) 75 MG tablet Take 1 tablet by mouth daily. Continuous Glucose Sensor (Dexcom G6 Sensor) misc Continuous Glucose Transmitter (Dexcom G6 transmitter) [facility] fluticasone (Flonase) 50 MCG/ACT nasal spray Administer [...] prep barrier wipe daily and PRN, leave USABILITY ARCHITECT Nutritional support Wound Care to follow Recommend to follow up at [facility] Outpatient wound care center after hospital discharge. [...] Name: Sandy Deng Patient : 1960 Acct: [id number] Date of Admission: 08/12/2024 Room/Bed: T3-321/[facility] A PCP: Bird Lujan Stroke [...] mouth 2 times daily. Historical Provider, Cholecalciferol ([facility] Vitamin D3) 25 MCG (1000 UT) chewable tablet Chew. Historical Provider, clopidogrel (Plavix) 75 MG tablet Take 1 tablet by mouth daily. Historical Provider, Continuous Glucose Sensor (Dexcom G6 Sensor) [facility] 07/22/24 Historical Provider, Continuous Glucose Transmitter (Dexcom G6 transmitter) [facility] 07/25/24 Historical Provider, estradiol (Estrace) 1 MG [...] Espana DO Insulin Disposable Pump (Omnipod 5 [id number] Intro Gen 5) kit 12/03/23 Historical Provider, Insulin Disposable Pump (Omnipod 5 [id number] Pods Gen 5) [facility] 07/15/24 Historical Provider, insulin glargine (Lantus) 100 [...] 0.4 MG SL tablet 07/15/24 Historical Provider, Proljoselyn 60 MG/ML solution prefilled syringe Historical Provider, [...] 2 puff, Inhalation, q6h PRN, Ana Rosakosta Pros, DO [Held by provider] aspirin EC tablet [...] 75 mg, 75 mg, Oral, Daily, Ana Rosa Edie Carlin, DO dexmedeTOMIDine in NS (Precedex) 400 mcg in 100 mL (4 mcg/mL) infusion, 0.1-1.5 mcg/kg/hr, IntraVENous, Continuous, May Wang, , Last Rate: 2.88 mL/hr at 08/12/242014, 0.2 mcg/kg/hr at 08/12/242014 dextrose 5 % infusion, 100 mL/hr, IntraVENous, PRN, Ana Rosa Edie Carlin, DO dextrose 50 % solution 12.5 g, 12.5 g, IntraVENous, PRN, Ana Rosa Irizarry Carlin, DO [Held by provider] fluticasone (Flonase) nasal spray 2 spray, 2 spray, Each Nostril, Daily, Ana Rosa Irizarry Carlin, DO [Held by provider] gabapentin (Neurontin) capsule 200 mg, 200 mg, Oral, BID, Ana Rosakosta Irizarry Carlin, DO glucagon (human recombinant) injection 1 mg, 1 mg, IntraMUSCular, PRN, Ana Rosakosta Irizarry Carlin, DO glucose oral gel 15 g, 15 g, Oral, PRN, Ana Rosa Irizarry Carlin, DO [Held by provider] guaiFENesin (Robitussin) 100 MG/5ML liquid 200 mg, 200 mg, Oral, q4h PRN, Rodolfo Pros, DO [Held by provider] heparin injection 5,000 Units, 5,000 Units, SubCUTAneous, 2 times per day, Ana Rosa Pros DO, 5,000 Units at 08/12/242049 Insulin Lispro (Humalog) injection 0-6 Units, 0-6 Units, SubCUTAneous, q6h, Ana Rosa Pros DO,3 Units at 08/12/241823 ipratropium-albuterol (Duo-Neb) 0.5-2.5 mg/3 mL nebulizer solution 3 mL, 3 mL, Nebulization, TID, Ana Rosa Pros, DO, 3 mL at 08/12/24 2019 [Held by provider] lisinopril tablet 2.5 mg, 2.5 mg, Oral, Daily, Ana Rosa Carlin DO methylPREDNISolone sod suc (PF) (SOLU-Medrol) 40 MG injection 40 mg, 40 mg, IntraVENous, q6h, Ana Rosa Pros, DO, 40 mg at 08/12/24 1640 [Held by provider] metoprolol tartrate (Lopressor) tablet 50 mg, 50 mg, Oral, BID, Ana Rosa Irizarry Carlin, DO [Held by provider] mirtazapine (Remeron) tablet 7.5 mg, 7.5 mg, Oral, Nightly, Ana Rosa Carlin, DO [Held by provider] mometasone-formoterol (Dulera 200) 200-5 MCG/ACT inhaler 2 puff, 2 puff, Inhalation, BID, Ana Rosa Edie Carlin, DO mupirocin (Bactroban) 2 % ointment 1 Application, 1 Application, Nasal, BID, Ana Rosa Edie Carlin, DO, 1 Application at 08/12/242049 ondansetron ODT (Zofran-ODT) disintegrating tablet 4 mg, 4 mg, Oral, q8h PRN OR ondansetron (Zofran) injection 4 mg, 4 mg, IntraVENous, q6h PRN, Ana Rosa Edie Carlin, DO sodium chloride 0.9 % infusion, 250 mL/hr, IntraVENous, PRN, April Soto MD [Held by provider] tiotropium (Spiriva Respimat) 2.5 MCG/ACT inhaler 2 puff, 2 puff, Inhalation, Daily, Ana Rosa Edie Carlin, DO Continuous Infusions: dexmedeTOMIDine, 0.1-1.5 mcg/kg/hr, Last [...] 445 ms QTC Interval 450 ms P Sarepta 76 degrees QRS Sarepta -24 degrees T Wave S[place] 51 degrees MS Interval 162 ms Basic metabolic panel Collection [...] PM Result Value Ref Range PRODUCT CODE [id number] Unit Number [id number] Unit ABO O Unit RH POS Crossmatch [...] non thrombolytic stroke workup documented in this [facility]10-21-2024 Hospital Discharge instructions* Discharge Instr - CEHLO* Sindy Garrison RN - 08/23/2024 1:25 PM [...] Bobbi Steward Mobile Relation: Daughter Preferred language: Cymraes Shovel Logger needed? No Secondary Emergency Contact: Jose Deng Mobile Relation: Spouse Preferred language: Cymraes Shovel Logger needed? No Past Surgical History: Past Surgical [...] assistance Toileting Minimal assistance Feeding Minimal assistance Measurement Operator Minimal assistance Med Delivery yes Wound Care Documentation and Therapy: Wound/Incision 08/12/24 Other (comment) Toe - fourth Anterior;Left (Active) Site Assessment Black 08/23/24799 Rosana-Wound Assessment Pale;Purple 08/23/24799 Drainage Description Unable to assess 08/22/242052 Odor None 08/23/24799 Drainage Amount None 08/23/24799 Treatments Site care 08/23/24799 Primary Dressing Open to air 08/23/24799 Topical Other 08/15/24 07 Number of days: 11 Wound/Incision 08/18/24 Pressure Injury Coccyx (Active) Site Assessment Painful;Pale;[place] 08/23/24799 Rosana-Wound Assessment Blanchable erythema;Fragile;Intact 08/23/24799 Wound Length (cm) 1.5 cm 08/18/242009 Wound [...] Rehab Therapies: physical therapy, occupational therapy, social organization professor, and recreation therapy Weight Bearing Status/Restrictions: no restriction Other Medical Equipment (for information only, NOT a DME order): none Other Treatments: n/a Patient's personal belongings (please select all that are sent with patient): none RN SIGNATURE: MANAGEMENT/SOCIAL WORK SECTION Inpatient Status Date: 08/12/2024 Discharging to Facility/ Agency Name: [facility] Address: [address] [place] [address] Fax: Dialysis Facility (if applicable) Name: Address: Dialysis Schedule: Phone: Fax: Machine Feed Operator/Ice Bag Assembler signature: ICIAN SECTION Name: Sandy Deng Prognosis: {Rehab Prognosis:38518} Condition at Discharge: {Patient Condition:98655} Rehab Potential (if transferring to Rehab): {Rehab Prognosis:30229} Recommended Labs or Other Treatments After Discharge: The individual is being admitted to a nursing facility directly from an [facility] or a unit of a [facility] that is not operated by or licensed by [facility] under section 5119.14 or 5160-3-15.1 5 The individual requires the level of services provided by a nursing facility for the condition for which he or she was treated in the hospital and, Physician Certification: I certify the above information and transfer of Sandy Deng is necessary for the continuing treatment of the diagnosis listed and that she requires {CHELO Level of Care:98562} for {greater less than:57567} 30 days. Update Admission H&P: {CHELO Changes in H&P:18524} PHYSICIAN SIGNATURE: {E-signature:77267} documented in this [facility]10-11-2024 NoteReturn referral placed to [facility] rehab [facility] via [facility] per [facility] request. Await review and response regarding ability to accept. TCC notified. [facility]10-11-2024 [facility]10-11-2024 Procedure note* Armen Diaz MD PhD - 08/13/2024 3:02 AM EDTAssociated Order(s): EEG CONTINUOUS MONITORING Images from the original note were not included. [facility] EEG LABORATORY [address] [place] [id number] CONTINUOUS LONG-TERM VIDEO EEG MONITORING REPORT Patient Name: Sandy Deng : 1960 Date of Study: 08/13/2024 Duration Recorded: 12-26 hrs EEG#: [id number] RAW FINISH MILL OPERATOR: Adam Hudsno TUriel PROVIDER REQUESTING STUDY: May Wang DO REASON [...] 20 mg 20 mg Oral Nightly Ana Rosakosta Carlin DO busPIRone (Buspar) tablet 7.5 mg 7.5 mg Oral BID May Wang DO calcium gluconate 2000 mg in 100 mL IVPB premix 2,000 mg IntraVENous Once May Wang DO 50 mL/hr at 08/13/24 0245 2,000 mg at 08/13/24 0245 [Held by provider] clopidogrel (Plavix) tablet 75 mg 75 mg Oral Daily Ana Rosa Pros, DO dextrose 5 % infusion 100 mL/hr IntraVENous PRN Ana Rosa Pros, DO dextrose 50 % solution 12.5 g 12.5 g IntraVENous PRN Ana Rosa Pros, DO [Held by provider] fluticasone (Flonase) nasal spray 2 spray 2 spray Each Nostril Daily Ana Rosakosta Pros, DO gabapentin (Neurontin) capsule 200 mg 200 mg Oral BID May Wang DO glucagon (human recombinant) injection 1 mg 1 mg IntraMUSCular PRN Ana Rosa Pros, DO glucose oral gel 15 g 15 g Oral PRN Ana Rosa Pros, DO [Held by provider] guaiFENesin (Robitussin) 100 MG/5ML liquid 200 mg 200 mg Oral q4h PRN Ana Rosa Edie Carlin, DO [Held by provider] heparin injection 5,000 Units 5,000 Units SubCUTAneous 2 times per day Ana Rosakosta Pros DO 5,000 Units at 08/12/242049 Insulin Lispro (Humalog) injection 0-6 Units 0-6 Units SubCUTAneous q6h Ana Rosakosta Carlin, DO 3 Units at 08/13/24100 ipratropium-albuterol (Duo-Neb) 0.5-2.5 mg/3 mL nebulizer solution 3 mL 3 mL Nebulization TID Ana Orsakosta Carlin DO 3 mL at 08/12/242018 lactated ringers bolus 1,000 mL 1,000 mL IntraVENous Once May Wang DO 500 mL/hrat 08/13/24229 1,000 mL at 08/13/24229 lactated ringers bolus 500 mL 500 mL IntraVENous Once May Wang DO 250 mL/hr at 08/13/24 0200 500 mL at 08/13/24 020 levETIRAcetam in sodium chloride (Keppra) IVPB 500 mg 500 mg IntraVENous BID May Wang DO [Held by provider] lisinopril tablet 2.5 mg 2.5 mg Oral Daily Ana Rosa Carlin DO methylPREDNISolone sod suc (PF) (SOLU-Medrol) 40 MG injection 40 mg 40 mg IntraVENous q6h Ana Rosakosta Carlin DO 40 mg at 08/12/24 2317 [Held [...] Application 1 Application Nasal BID Ana Rosa Carlin, DO 1 Application at 08/12/242049 ondansetron ODT (Zofran-ODT) disintegrating tablet 4 mg 4 mg Oral q8h PRN Ana Rosa Carlin DO Or ondansetron (Zofran) injection 4 mg 4 mg IntraVENous q6h PRN Ana Rosakosta Carlin DO QUEtiapine (SEROquel) tablet 25 mg 25 mg Oral Nightly May Sherice Wang, DO 25 mg at 08/13/24 0131 sodium chloride 0.9 % infusion 250 mL/hr IntraVENous PRN April Soto MD [Held by provider] tiotropium (Spiriva Respimat) 2.5 MCG/ACT inhaler 2 puff 2 puff Inhalation DailyAmanfrancesca Carlin DO TECHNICAL ASPECTS: This continuous scalp EEG study with video was carried out at [facility]. Scalp electrodeswere positioned in person by an cardiovascular radiologic technologist, following patient education, according to the 10-20 International system of electrode placement and maintained for integrity and quality of the recording. . EEG data with video was recorded continuously and digitally stored. The cardiovascular radiologic technologist reviewed all automated detections and manual [...] diffuse delta-theta range (1.5-7 Hz, 20-35 uV) nvferauaj-aj-djxcvqboboeifl slow wave activity was seen unresponsive to [...] EEG with video is abnormal. Continuous diffuse dckhtiiy-ne-augguw diffuse slowing is seen unresponsive to stimulation. REM sleep architecture is observed. At times, fronto-centrally predominant fast activity is observed reminiscent of sleep spindles. No interictal epileptiform activity nor seizures are observed. The findings are supportive of a felzoazx-rm-odfudl global encephalopathy non- specific as to etiology. Will continue video-EEG monitoring to evaluate the evolution of this encephalopathy. aJsmeet Arevalo, PhD Clinical Neurophysiologist Armen Diaz MD PhD Epilepsy Attending documented in this [facility]10-10-2024 NoteSoft restraints removed at this time. Dr. Hoang made aware. Clari Bronson RN 08/12/[address] [place], [place] 6411310-10-2024 Emergency department Note* Clari Bronson RN - 08/12/2024 4:34 PM EDT Soft restraints removed at this time. Dr. Hoang made aware. Clari Bronson RN 08/12/24 163 * Margret Doan RN - 08/12/2024 4:33 PM EDT Report given to T3 RN. Margret Doan RN 08/12/24 1634 * Clari Bronson RN - 08/12/2024 3:16 PM EDT ICU at bedside. Clari Bronson RN 08/12/24 1517 * Lucina Galvan DO - 08/12/2024 11:35 AM EDT Emergency Department Encounter [facility] EMERGENCY DEPT Patient: Sandy Deng : 1960 [...] [employer] Lucina Galvan DO 08/12/24 1755 * Sapphire Bianchi PA-C - 08/12/2024 11:35 AM EDT Emergency Department Encounter [facility] Emergency Department Patient: Sandy Deng : 1960 [...] pneumonia, andrespiratory failure. Patient was discharged to [facility] 2 days ago, and today was [...] tablet by mouth 2 times daily. Cholecalciferol ([facility] Vitamin D3) 25 MCG (1000 UT) chewable tablet Chew. clopidogrel (Plavix) 75 MG tablet Take 1 tablet by mouth daily. Continuous Glucose Sensor (Dexcom G6 Sensor) [facility] Continuous Glucose Transmitter (Dexcom G6 transmitter) [facility] estradiol (Estrace) 1 MG tablet Take 1 [...] 10 days. Insulin Disposable Pump (Omnipod 5 [id number] Intro Gen 5) kit Insulin Disposable Pump (Omnipod 5 [id number] Pods Gen 5) [facility] insulin glargine (Lantus) 100 UNIT/ML injection Inject [...] Confused Best Motor Response: Withdraws to pain Delmar Coma Scale Score: 10 NIH Stroke Scale 1A. Level of Consciousness: Requires Repeated Stimulation to Arouse or Responds to Pain 1B. Ask Month and Age: No Questions Right 1C. Blink Eyes & Squeeze Hands: Performs 0 Tasks 2. Best Gaze: Normal 3. Visual: No Visual Loss 4. Facial Palsy: Normal Symmetrical Movements 5A. Motor - Left Arm: Some Effort Against [place] 5B. Motor - Right Arm: Some Effort Against [place] 6A. Motor - Left Leg: Some Effort Against [place] 6B. Motor - Right Leg: Some Effort Against [place] 7. Limb Ataxia: Absent 8. Sensory Loss: [...] Abnormal Glucose 259 (*) Narrative: Performed by: [facility], [address] [place] [address] CLIA ID: [id number] POCT GLUCOSE METER UNSOLICITED RESULTS - Abnormal Glucose 252 (*) Narrative: [facility], [address] [place] [address] CLIA ID: [id number] POCT GLUCOSE METER UNSOLICITED RESULTS - Abnormal Glucose 253 (*) Narrative: Performed by: [facility], [address] [place] [address] CLIA ID: [id number] BLOOD CULTURE - Normal Blood Culture Blood [...] ACID WITH REFLEX PREPARE RBC PRODUCT CODE [id number] Unit Number [id number] Unit ABO O Unit RH POS Crossmatch interpretation COMP Dispense Status Transfused Blood Expiration Date Product Blood Type 5100 Unit Volume 300 PREPARE RBC PRODUCT CODE [id number] Unit Number [id number] Unit ABO O Unit RH POS Crossmatch [...] Department Physician in the absence of a doggy daycare activities director. Please see Epiphany for interpretation of EKG. [...] injection 40 mg (40 mg IntraVENous Given 08/13/24456) albuterol 108 (90 Base) MCG/ACT inhaler 2 puff ( Inhalation Held by provider 08/12/241807) aspirin EC tablet 81 mg ( Oral Dose Auto Held 08/20/24899) busPIRone (Buspar) tablet 7.5 mg ( Oral Unheld by provider 08/13/24126) clopidogrel (Plavix) tablet 75 mg ( Oral Dose Auto Held 08/20/24899) fluticasone (Flonase) nasal spray 2 spray ( Each Nostril Dose Auto Held 08/20/24899) gabapentin (Neurontin) capsule 200 mg ( Oral Unheld by provider 08/13/24126) guaiFENesin (Robitussin) 100 MG/5ML liquid 200 mg ( Oral Held by provider 08/12/241807) Insulin Lispro (Humalog) injection 0-6 Units (3 Units SubCUTAneous Given 08/13/24523) glucose oral gel 15 g (has no [...] mg ( Oral Unheld by provider 08/13/24126) atorvastatin (Lipitor) tablet 20 mg ( Oral Dose Auto Held 08/20/242099) mometasone-formoterol (Dulera 200) 200-5 MCG/ACT inhaler 2 puff ( Inhalation Dose Auto Held 08/20/241999) tiotropium (Spiriva Respimat) 2.5 MCG/ACT inhaler 2 puff ( Inhalation Dose Auto Held 08/20/24899) mupirocin (Bactroban) 2 % ointment 1 Application (1 Application Nasal Given 08/12/242049) ondansetron ODT (Zofran-ODT) disintegrating tablet 4 mg (has no administration in time range) Or ondansetron (Zofran) injection 4 mg (has no administration in time range) heparin injection 5,000 Units ( SubCUTAneous Dose Auto Held 08/20/24 2100) sodium chloride 0.9 % infusion (has no administration in time range) QUEtiapine (SEROquel) tablet 25 mg (25 mg Oral Given 08/13/24 013) levETIRAcetam (Keppra) 250 mg in sodium chloride [...] 1 mg (1 mg IntraVENous Given 08/13/24 013) lactated ringers bolus 500 mL (0 mL [...] PA-C [employer] Sapphire Bianchi PA-C 08/13/24 0712 Cosigned by Lucina Galvan DO at 08/13/2024 2:40 PM EDT * Yassine Montero DO - 08/12/2024 11:35 AM EDT Emergency Department Encounter Location: [facility] EMERGENCY DEPT Patient: Sandy Deng : 1960 [...] and respiratory failure. She was discharged to [facility] 2 days ago after beingadmitted for [...] 445 ms QTC Interval 450 ms P Sare[place] 76 degrees QRS Sarepta -24 degrees T Wave S[place] 51 degrees MS Interval 162 ms XR chest 1 view [...] status and respiratoryfailure. She was [facility] after being admitted [...] g (4.5 g IntraVENous New Bag 08/12/24 4036) lactated ringers bolus 1,716 mL (0 mL [...] 08/12/2024 5:46 PM EDT documented in this [facility]10-10-2024 History and physical note* Ana Rosa Edie Carlin DO - 08/12/2024 3:20 PM EDT [...] [facility], and today was found altered, nasal [...] Provider, Continuous Glucose Sensor (Dexcom G6 Sensor) [facility] 07/22/24 Historical Provider, Continuous Glucose Transmitter (Dexcom G6 transmitter) [facility] 07/25/24 Historical Provider, estradiol (Estrace) 1 MG [...] Espana DO Insulin Disposable Pump (Omnipod 5 [id number] Intro Gen 5) kit 12/03/23 Historical Provider, Insulin Disposable Pump (Omnipod 5 [id number] Pods Gen 5) [facility] 07/15/24 Historical Provider, insulin glargine (Lantus) 100 [...] Normal [] Scar/Lesion/Mass Inspection of teeth/lips/gums Dentition: [][place] Teeth []Dentures Lips/Gums: []Intact []Lesion Present Mucosa: [][place] []Moist []Dry Neck: External Appearance Overall Appearance: [...] within last 24 hours- BMP: Recent Labs 08/10/243408/11/2459908/12/24 1337 NA 138 133* 132* K 4.2 4.6 3.6 CL 102 98 100 CO2 33* 23 28 BUN 25* 25* 19* CREATININE 2.85* 2.31* 2.38* CALCIUM 6.6* 6.7* 6.6* MG 1.8 -- -- PHOS 4.5 -- -- LFTs: No results for input(s): AST, ALT, PROT, ALBUMIN, BILITOT, BILIRUBINU, ALKPHOS,LIPASE in the last 72 hours. Glucose: Recent Labs 08/09/24200408/10/24 00308/10/24 0727 08/10/24 0735 08/10/24 0824 08/10/24 0911 08/10/24 1005 08/10/24 1126 08/10/24 1318 08/11/24 0600 08/12/24 1337 GLUCOSE -- 110* -- 61* -- -- -- -- -- 360* 229* POCGLU 164* -- 65* -- 103* 96 102* 109* 119* -- -- Procal: No results for input(s): PROCAL in the last 72 hours. CBC: Recent Labs 08/11/24 0608/12/24 0608/12/24133608/12/24 1604 WBC 4.6 4.3 4.8 -- HGB 7.9* 7.2* 9.1 7.9* 7.7 HCT 28.4* 23.9* 26.5* -- PLT 102* 95* 89* -- MCV 104.4* 94.5 95.3 -- RDW 17.0* 16.6* 16.5* -- ABGs: Recent Labs 08/12/24 1337 08/12/24 1604 [id number] Nasal cannula Bi-PAP Lactic Acid: Recent Labs 10/10/24 1337 LACTATE 1.6 INR: No results for [...] PM EDT I have personally performed a lddn-be-weqo diagnostic evaluation on this patient on date of advdmjt20/10/24. History, labs, imaging studies, and electronic medical record have been reviewed by me. This note documented by the [x]house painting instructor []TONJA reflects my history, exam, and medical [...] so far today, excludingprocedures. documented in this [facility]10-10-2024 [facility] 08-10-2024 Nurse Note* Jim Rodriguez RN - 08/10/2024 2:13 PM EDT [facility] RN verified with Dr. Espana that pt is leavingwith johnson catheter. * Rene Ryanrens - 08/10/2024 9:05 AM EDT Patient Name: Sandy Deng Patient : 1960 Acct: [id number] Date of Admission: 07/26/2024 [facility]: [facility] B Code Status: Full Code Allergies: [...] HGB 7.8 (L) 08/10/202434 HGB 7.1 07/31/2024 0605 HCT 26.2 (L) 08/10/202434 PLT 95 (L) 08/10/202434 NA 138 08/10/202434 K 4.2 08/10/202434 CL 102 08/10/202434 CO2 33 (H) 08/10/202434 BUN 25 (H) 08/10/202434 CREATININE 2.85 (H) 08/10/202434 CALCIUM 6.6 (L) 08/10/202434 PHOS 4.5 08/10/202434 IV Drips and Rate/Dose Safety - Before each treatment: Dialysis Machine No.: [id number] RO Machine Number: [id number] Dialyzer Lot No.: [id number] Tubing Lot Number: [id number] All Connections Secure: Yes Venous Parameters Set: Yes Arterial Parameters Set: Yes NS Bag: Yes Saline Line Double Clamped: Yes Dialyzer: Nipro Prime Volume (mL): 200 mL RO Machine Number: [id number] RO Machine Log Sheet Completed: Yes Machine Alarm Self Test: Completed, Passed (08/10/24944) Air Foam Detector: Tested, Proper Function, pH Reading Extracorporeal Circuit Tested for Integrity: Yes Machine Conductivity: 13.7 Manual Conductivity: 13.6 Machine Ph: 7 Manual Ph: 7.2 Bleach Test (Neg): Yes Bath Temperature: 36 C (96.8 F) Conductivity Meter Serial #: [id number] Machine Functioning Alarm Free? Yes Dialysis Bath: K+ (Potassium): 2 Ca+ (Calcium): 2.5 Na+ (Sodium): 136 HCO3 (Bicarb): 36 Bicarbonate Concentrate Lot No.: [id number] Acid Concentrate Lot No.: [id number] Chlorine Testing - Before each treatment and every 4 hours: Time On: 09 Time Off: 1217 Treatment Goal: 2.5L Weight Height: 167.6 cm (5' 5.98) (08/03/24 1355) Weight: 57.4 kg (126 lb 8.7 oz) (08/07/24399) BMI (Calculated): 20.43 (08/07/24399) 1st check: less [...] (mmHg) TMP DFR Access Visible Intra-Hemodialysis Comments 08/10/24858 -- -- -- -- -- -- Yes pt aware of call light within reach and educated on use of calllight 08/10/24900 200 mL/min 1000 ml/hr -30 mmHg 20 mmHg 30 600 Yes tx iniated lines secured pt stable 08/10/24902 350 mL/min 1000 ml/hr -110 mmHg 60 mmHg 70 600 Yes bfr increased 08/10/2415 350 mL/min 1000 ml/hr -140 mmHg 90 mmHg 70 600 Yes pt resting, removed 234 08/10/2430 -- -- -- -- -- -- -- [...] 600 Yes pt resting, lines secure, removed 60485 08/10/24 1115 350 mL/min 970 ml/hr -160 [...] -- -- Yes tx complete pt stable 2012 removed Vital Signs Patient Vitals for the [...] (98.1 F) Temporal 88 20 97 % 08/09/249 -- -- -- 88 20 98 % [...] Initial, Last Name, Title): Jason BEAVER RN Education Person Educated: Patient Knowledge Base: [...] to Med Team resident and updated resident onthis night events. 0639- 1mg IM glucagon given per resident. 0647- glucose confirmation came back at 216. 0654- D5 infusion discontinued at this time. * Yenny Keller RN - 08/07/2024 8:51 PM EDT Patient Name: Sandy Deng Patient : 1960 Acct: [id number] Date of Admission: 07/26/2024 Room[facility]Bed: [facility] B Code Status: Full Code Allergies: [...] RN (First Initial, Last Name, Title): Hasmukh iMddleton RN Incapacitated Nurse Education Completed: Niya Keller [...] Right lower extremity;Left lower extremity +2 +2 08/07/241736 Alert (0) Regular Nasal cannula Diminished -- [...] - Before each treatment: Dialysis Machine No.: [id number] RO Machine Number: [id number] Dialyzer Lot No.: [id number] Tubing Lot Number: [id number] All Connections Secure: Yes Venous Parameters Set: Yes Arterial Parameters Set: Yes NS Bag: Yes Saline Line Double Clamped: Yes Dialyzer: Nipro Prime Volume (mL): 200 mL RO Machine Number: [id number] RO Machine Log Sheet Completed: Yes Machine Alarm Self Test: Completed, Passed (1616) (08/07/24 163) Air Foam Detector: pH Reading, Proper Function, Tested Extracorporeal Circuit Tested for Integrity: Yes Machine Conductivity: 13.6 Manual Conductivity: 13.6 Machine Ph: 7 Manual Ph: 7 Bleach Test (Neg): Yes Bath Temperature: 36 C (96.8 F) Conductivity Meter Serial #: [id number] Machine Functioning Alarm Free? Yes Dialysis Bath: K+ (Potassium): 2 Ca+ (Calcium): 2.5 Na+ (Sodium): 136 HCO3 (Bicarb): 36 Bicarbonate Concentrate Lot No.: [id number] Acid Concentrate Lot No.: [id number] Chlorine Testing - Before each treatment and every 4 hours: Time On: 1741 Time Off: 2041 Treatment Goal: 2L Weight Height: 167.6 cm (5' 5.98) (08/03/24 1355) Weight: 57.4 kg (126 lb 8.7 oz) (08/07/24399) BMI (Calculated): 20.43 (08/07/24399) 1st check: less [...] (mmHg) TMP DFR Access Visible Intra-Hemodialysis Comments 08/07/241736 -- -- -- -- -- -- Yes [...] Yes Pt stable rmvd 1544. Restimg. 08/07/24 194 350 mL/min 710 ml/hr -130 mmHg 110 mmHg 60 600 Yes Pt stable rmvd 1629 08/07/242001 350 mL/min 710 ml/hr -130 mmHg 110 mmHg 60 600 Yes Pt stable rmvd 1797. sleeping, lines secure.. Call light in reach. 08/07/242014 350 mL/min 710 ml/hr -130 mmHg 110 mmHg 60 600 Yes Pt sleeping. rmvd 1995. Call lightin reach. 08/07/242030 350 mL/min 710 [...] 124/68 -- -- 75 -- -- -- 08/07/241944 122/57 -- -- 75 -- -- -- 10/05/24 1930 118/58 -- -- 76 -- -- [...] Name: Sandy Deng Patient : 1960 Acct: [id number] Date of Admission: 07/26/2024 Room/Bed: T2213/[facility] A Code Status: Full Code Allergies: No [...] Alert (0) X3 Regular Nasal cannula Diminished [place] Warm;Dry Soft;Flat Present Other (Comment) Other (Comment) None None None None 08/06/2444 Alert (0) X3 -- -- -- -- -- Soft;Flat -- -- -- -- -- -- -- Labs Lab Results Component Value Date/Time WBC 7.4 08/05/2024255 HGB 7.4 (L) 08/05/2024255 HGB 7.1 07/31/2024 0605 HCT 23.6 (L) 08/05/2024255 PLT 168 08/05/2024255 NA 132 (L) 08/05/2024255 K 4.0 08/05/2024255 CL 105 08/05/2024255 CO2 26 08/05/2024255 BUN 35 (H) 08/05/2024255 CREATININE 2.56 (H) 08/05/2024255 CALCIUM 6.7 (L) 08/05/2024255 PHOS 3.6 08/05/2024255 IV Drips and Rate/Dose Safety - Before each treatment: Dialysis Machine No.: [id number] RO Machine Number: [id number] Dialyzer Lot No.: [id number] Tubing Lot Number: [id number] All Connections Secure: Yes Venous Parameters Set: Yes Arterial Parameters Set: Yes NS Bag: Yes Saline Line Double Clamped: Yes Dialyzer: Nipro Prime Volume (mL): 200 mL RO Machine Number: [id number] RO Machine Log Sheet Completed: Yes Machine Alarm Self Test: Completed, Passed (2103) (08/05/242103) Air Foam Detector: Tested, Proper Function Extracorporeal Circuit Tested for Integrity: Yes Machine Conductivity: 13.5 Manual Conductivity: 13.4 Manual Ph: 7.8 Bleach Test (Neg): Yes Bath Temperature: 36 C (96.8 F) Conductivity Meter Serial #: [id number] Machine Functioning Alarm Free? Yes Dialysis Bath: K+ (Potassium): 2 Ca+ (Calcium): 2.5 Na+ (Sodium): 136 HCO3 (Bicarb): 36 Bicarbonate Concentrate Lot No.: [id number] Acid Concentrate Lot No.: [id number] Chlorine Testing - Before each treatment and [...] -- -- 71 21 100 % -- 08/05/242129 142/63 -- -- 73 20 100 % -- 08/05/242125 (!) 142/36 -- -- 72 20 100 % -- 08/05/242114 125/51 -- -- 71 18 100 % -- 08/05/242103 -- -- -- 74 21 100 % -- 08/05/242099 122/53 -- -- 70 20 100 % -- 08/05/242049 120/52 36.4 C (97.6 F) -- 71 [...] blanchable erythema. Prevention Measures in place, including: Bruner sheet with pillows/wedges, Foam heel protectors (changed), [...] Name: Sandy Deng Patient : 1960 Acct: [id number] Date of Admission: 07/26/2024 Room/Bed: T2-213/T2-213 A [...] 08/03/202421 HGB 8.5 (L) 08/03/202421 HGB 7.1 07/31/2024 0605 HCT 28.6 (L) 08/03/202421 PLT 210 08/03/202421 NA 137 08/03/202421 K 4.3 08/03/202421 CL 110 (H) 08/03/202421 CO2 26 08/03/202421 BUN 28 (H) 08/03/202421 CREATININE 2.29 (H) 08/03/202421 CALCIUM 7.4 (L) 08/03/202421 PHOS 3.4 08/03/202421 IV Drips and Rate/Dose Safety - Before each treatment: Dialysis Machine No.: [id number] RO Machine Number: [id number] All Connections Secure: Yes Venous Parameters Set: Yes Arterial Parameters Set: Yes NS Bag: Yes Saline Line Double Clamped: Yes Dialyzer: Nipro Prime Volume (mL): 200 mL RO Machine Number: [id number] RO Machine Log Sheet Completed: Yes Machine Alarm Self Test: Completed, Passed (08/03/24 1051) Air Foam Detector: Tested, Proper Function, pH Reading Extracorporeal Circuit Tested for Integrity: Yes Machine Conductivity: 13.7 Manual Conductivity: 13.6 Manual Ph: 7 Bleach Test (Neg): Yes Bath Temperature: 36 C (96.8 F) Conductivity Meter Serial #: [id number] Machine Functioning Alarm Free? Yes Dialysis Bath: [...] -120 mmHg 140 mmHg 80 600 Yes caser shoe parts RN at bedside to speak woth pt [...] and report given to Primary RN at 5204. Primary RN (First Initial, Last Name, Title): [...] 07/29/2024 4:12 PM EDT Patient [facility] Amezcua in to speak with the family [...] paused d/t access line clotting at approximately 8248-7710. Trouble shooting attempted. Cath flow ordered and given at 0646. documented in this [facility]10-08-2024 History of Present illness Narrative* Saroj Gaffney MD - 08/10/2024 12:17 PM EDT Images from the original note were not included. Nephrology Progress Note Patient: Sandy Deng Room number: W3-339/W3-339 B Date of Admit: 07/26/2024 LOS: 15 days Admitting physician: Ino Conte MD Referring physician: Fly De La Garza DO Outpatient Hotel Security Officer: Christy Huerta DO Assessment/Plan: 63 year old [...] 2.4-2.8, last (04/26) Cr 2.4 eGFR , xzoimxfxi=2613 mg. -Suspected ATN in setting of infection/HD [...] mg IV lasix Anemia: Hgb 7.8 Access: RIJ TDC 07/29 Recommendations: -HD today, continue TTS for now -Can continue lasix on HD off days to assist volume removal -Continue strict I/Os and daily renal function panel to monitor for recovery -Await repeat complements Thank you for this consult, we will continue to follow. Please call or page if any questions [facility] Pager: [phone] Office: [phone]. Office Subjective: Interval history/events: Seen and evaluated [...] IRON, TIBC, FERRITIN No results found for: [id number], FOLATE Recent Labs 08/08/24 0017 08/09/24 0035 [...] PHOS 4.5 08/10/2024 No components found for: [id number] Diagnostic Studies: CXR 08/08 Findings: Right IJ [...] 7:44 AM EDT Med Team Progress Note Sandyshabana Deng : 1960(63 y.o.) Date: August 10, 2024 Med Team: A Attending: Dr. De La Garza Chief Complaint: sepsis Subjective: Sandy Deng is a 63 yo F with a PMH of COPD, diabetic neuropathy, hx of NSTEMI, stage 4 CKD (on HD TTS), and Type 1 diabetes. Initially patient presented to [facility] on 07/23 with acute respiratory distress [...] the nightstand. Pt was then transferred to [facility]. Initial infectious workup returned with CTX-M Pseudomonas [...] Chronic Hypoxemic, Hypercapnic Resp failure - extubated 9/27 - Initial infectious workup returned with CTX-M [...] (04/26) Cr 2.4 eGFR 20, 24 hr jnuppxn=3838 mg. - On admit, (07/26) Cr 4.56, [...] evaluated at bedside; recommend continuation of acute MANAGER [place] diet - Monitor adequacy of PO for [...] and C4 complement Disposition: Approved 08/09-08/16 to [facility]. Transport arranged for today at 2 pm [...] hypoglycemic. We took off prandial insulin for [facility], but kept on the lantus in the case she was type I. -DC to [facility] today. 7AM-5PM: contact resident on [facility] Med A (find by hovering over attending's name on left side of patient's chart) 5PM-7AM: contact [address] - 08/09/2024 4:36 PM EDT Nutrition Assessment Type and Reason for Visit: Reassess Nutrition Recommendations/Plan: Continue current diet per [employer]GER [place]. Per MNT, will discontinue Ensure d/t thickened [...] mass loss Fluid Accumulation: Mild Extremities, Generalized Academic Department Chair Strength: Not Performed Nutrition Assessment: Pt PMH of COPD, diabetic neuropathy, hx of NSTEMI, stage 4 CKD (on HD TTS), and Type 1 diabetes. Initially patient presented to [facility] on 07/23 with acute respiratory distress [...] the nightstand. Pt was then transferred to [facility]. Initial infectious workup returned with CTX-M Pseudomonas and S aureus identified on pneumonia PCR. Patient went into septic shock, requiring pressors, now resolved. Patient no longer on antibiotics. Patient saturating well on 3-4L NC. Home O2 requirement of 3L. Pt first advanced to PO diet 08/01; advanced to Regular/nectar thick per MANAGER CHINA recs today. Pt was sleepingat time of RD assessment and did not wake to name call. No trays at bedside to assess. Estimated Daily Nutrient Needs: Energy Requirements Based On: Kcal/kg Weight Used for Energy Requirements: [place] Weight for Energy Calculation (kg): 59 kg Total Energy Requirements (kcals/day): 25-30 kcals/kg = 8479-5068 kcals/day Weight Used for Protein Requirements: [place] Weight in Kg Used for Protein Requirements: [...] Nutrition Therapies: Adult diet Regular; Mildly Thick ([place]) Current Oral Intake Average Meal Intake: 76-100% (per flowsheet) Average Supplements Intake: None Ordered Anthropometric Measures: Height: 167.6 cm (5' 5.98) Current Body Weight: 57.2 kg (126 lb) (08/07) Weight Source: Bed Scale Admission Body Weight: 48 kg (105 lb 13.1 oz) [place] Body Weight (lbs) (Calculated): 130 lbs [place] Body Weight (Kg) (Calculated): 59 kg % [place] Body Weight (Calculated): 105.1 % BMI (kg/m2) [...] to determine Sada Fernandez RD, LD Contact: [phone] * Sarjo Gaffney MD - 08/09/2024 1:34 PM EDT Images from the original note were not included. Nephrology Progress Note Patient: Sandy Deng Room number: [id number]/[id number] B Date of Admit: 07/26/2024 LOS: 14 days Admitting physician: Ino Conte MD Referring physician: Fly De La Garza DO Outpatient Hotel Security Officer: Christy Huerta DO Assessment/Plan: 63 year old [...] last (04/26) Cr 2.4 eGFR , 24 rlucgczrj=6101 mg. -Suspected ATN in setting of infection/HD [...] 475 ccs/24 hrs Anemia: Hgb 8.1 Access: [facility] 07/29 Recommendations: -Ordered 80 mg IV lasix x1 -Tentatively plan for next HD tomorrow 08/10 -Continue strict I/Os and daily renal function panel to monitor for recovery -Checking UA and repeating complements; may need further workup pending results Thank you for this consult, we will continue to follow. Please call or page if any questions [facility] Pager: [phone] Office: [phone]. Office Subjective: Interval history/events: Seen at bedside [...] Pulse: 77 76 84 89 Resp: 14 20 Temp: 36.4 C (97.6 F) 36.3 [...] with clean dressing intact LABS: Recent Labs 08/07/2410508/08/241608/09/2434 WBC 8.0 7.6 7.7 HGB 8.1* 8.7* 8.1* HCT 26.7* 28.9* 26.6* MCV 94.3 95.7 94.7 PLT 128* 118* 108* No results found for: IRON, TIBC, FERRITIN No results found for: [id number], FOLATE Recent Labs 08/07/2410508/08/247 08/09/24 0035 08/09/24 0613 NA 134* 134* [...] PHOS 4.1 08/09/2024 No components found for: [id number] Diagnostic Studies: CXR 08/08 Findings: Right IJ [...] and pathophysiology of processes involved. * RENATO Aguair - 08/09/2024 11:45 AM EDT Images from the original note were not included. Speech-Language Pathology SPEECH LANGUAGE PATHOLOGY [facility] Dysphagia Treatment Note Patient Name: Sandy Deng Evaluation Date: 08/09/2024 Date of : 1960 Admission Date: 07/26/2024 4:17 PM Age: 63 y.o. Room/Bed: [facility] B Subjective Patient was able to awaken but appeared somnolent. Family and RN reported patient with decreased POintake with current diet restrictions. Current Diet: Dietary Orders (From admission, onward) Start Ordered 08/04/24 1610 Adult diet Dysphagia - Pureed; Mildly Thick ([place]) Diet effective now Comments: Medications crushed and placed in pureed foods. Question Answer Comment Diet type Dysphagia - Pureed Fluid consistency Mildly Thick ([place]) 08/04/24 1611 08/03/24 1639 Supplement:PM Snack, HS [...] for dietadvancement. Plan & Recommendations Continue acute MANAGER CHINA therapy per initial plan of care and [...] Start: 08/04/24 Expected End: 08/18/24 Therapy Time MANAGER [place]INA Individual Minutes Time In: 1125 Time Out: 1135 Minutes: 10 Shanti Bianchi MA, CCC/MANAGER [place]INA * Amy Dorado, MARKET RESEARCH WORKER - 08/09/2024 8:47 AM EDT Images from the original note were not included. PHYSICAL THERAPY [facility] Treatment Note Name/MRN: Sandy Deng ([id number]) Date of : 1960 Age: 63 y.o. [...] SBA for short periods. Standing with this MARKET RESEARCH WORKER directly in front of pt, postural sway, [...] 08/31/24 Therapy Time Individual Co-treatment Time In 0821 Time Out 0847 Minutes 26 Timed Code Treatment Minutes: 26 Minutes (tp; fa) Amy Dorado, MARKET RESEARCH WORKER * Khai Espana, DO - 08/09/2024 8:03 AM EDT Med Team Progress Note Sandy Deng : 1960(63 y.o.) Date: August 09, 2024 Med Team: Frank Attending: Dr. De La Garza Chief Complaint: Brain Bleed Subjective: Sandy Deng is a 63 yo F with a PMH of COPD, diabetic neuropathy, hx of NSTEMI, stage 4 CKD (on HD TTS), and Type 1 diabetes. Initially patient presented to [facility] on 07/23 with acute respiratory distress [...] the nightstand. Pt was then transferred to [facility]. Initial infectious workup returned with CTX-M Pseudomonas [...] (04/26) Cr 2.4 eGFR 20, 24 hr ydybktf=8856 mg. - On admit, (07/26) Cr 4.56, [...] evaluated at bedside; recommend continuation of acute MANAGER [place]INA therapy - Diet order of Regular solids [...] monitor for now. 7AM-5PM: contact resident on [facility] A (find by hovering over attending's name on left side of patient's chart) 5PM-7AM: contact AI3 res * Jamey Muro, OT - 08/08/2024 10:44 AM EDT Images from the original note were not included. OCCUPATIONAL THERAPY [facility] Treatment Note Name/MRN: Sandy Deng ([id number]) Date of : 1960 Age: 63 y.o. Room/Bed: [facility] B Discharge Recommendation: IP Rehab Other: Continue [...] original note were not included. PHYSICAL THERAPY [facility] Treatment Note Name/MRN: Sandy Deng ([id number]) Date of : 1960 Age: 63 y.o. Room/Bed: [facility] B Discharge Recommendation: IP Rehab Equipment Needed: [...] y.o.) Date: August 08, 2024 Med Team: Frank Attending: Dr. De La Garza Chief Complaint: Brain bleed Subjective: Sandy Deng is a 63 yo F with a PMH of COPD, diabetic neuropathy, hx of NSTEMI, stage 4 CKD (on HD TTS), and Type 1 diabetes. Initially patient presented to [facility] on 07/23 with acute respiratory distress [...] the nightstand. Pt was then transferred to [facility]. Initial infectious workup returned with CTX-M Pseudomonas [...] (04/26) Cr 2.4 eGFR 20, 24 hr qmtbhbg=5304 mg. - On admit, (07/26) Cr 4.56, [...] evaluated at bedside; recommend continuation of acute MANAGER [place]INA therapy - Diet order on pureed solids [...] at any point. 7AM-5PM: contact resident on [facility] A (find by hovering over attending's name on left side of patient's chart) 5PM-7AM: contact MAKI stanton * Jose Carlos Medrano MD - 08/07/2024 11:52 AM EDT Images from the original note were not included. NEPHROLOGY SOAP NOTE Visit date: 08/07/24, 11:52 AM Patient: Sandy Deng Room number: [id number]/[id number] B Date of Admit: 07/26/2024 LOS: 12 days Referring physician: Ino Conte MD Outpatient Hotel Security Officer: Christy Huerta DO ASSESSMENT/PLAN: UMA on CKD 4 - Cr has been 2.4-2.8, last (04/26) Cr 2.4 eGFR 20, 24 hr ynqyght=2631 mg. - On admit, (07/26) Cr 4.56, [...] initial consultation. Interval history reviewed: transferred to [facility] Patient reports breathing comfortably Appetite has bene [...] myoclonus DATA: LABS: Recent Labs 08/05/24 0256 08/06/243 08/06/24 0957 08/07/24 0106 WBC 7.4 6.5 -- 8.0 HGB 7.4* 6.6* 7.9* 8.1* HCT 23.6* 21.6* 25.2* 26.7* MCV 90.4 93.1 -- 94.3 PLT 168 120* -- 128* Recent Labs 08/05/2425508/06/243 08/07/24105 NA 132* 133* 134* K 4.0 3.1* [...] IRON, TIBC, FERRITIN No results found for: [id number], FOLATE No results found for: COLORU, CLARITYU, [...] LABFUNG IMAGING: POCT glucose meter Performed by: [employer] [facility], [address] [place] [address] CLIA ID: [id number] Signed: Jose Carlos Medrano MD Nephrology [facility] ([facility]) Pager: [phone] Office Office * Khai Espana, DO - 08/07/2024 8:18 AM EDT Med Team Progress Note Sandy Deng : 1960(63 y.o.) Date: August 07, 2024 Med Team: Frank Attending: Dr. De La Garza Chief Complaint: Brain bleed Subjective: Sandy Deng is a 63 yo F with a PMH of COPD, diabetic neuropathy, hx of NSTEMI, stage 4 CKD (on HD TTS), and Type 1 diabetes. Initially patient presented to [facility] on 07/23 with acute respiratory distress [...] the nightstand. Pt was then transferred to [facility]. Initial infectious workup returned with CTX-M Pseudomonas [...] (04/26) Cr 2.4 eGFR 20, 24 hr hbgtjkf=0470 mg. - On admit, (07/26) Cr 4.56, [...] evaluated at bedside; recommend continuation of acute MANAGER [place]INA therapy - Diet order on pureed solids [...] patient's chart) 5PM-7AM: contact AI3 res * Elle Israel PTA - 08/06/2024 2:28 PM EDT Images from the original note were not included. PHYSICAL THERAPY [facility] Treatment Note Name/MRN: Sandy Deng ([id number]) Date of : 1960 Age: 63 y.o. Room/Bed: [facility] A Discharge Recommendation: IP Rehab Equipment Needed: [...] Timed Code Treatment Minutes: 11 Minutes (FA) MARKET RESEARCH WORKER wore PPE in compliance with hospital guidelines and regulation when treating this patient. Elle Israel, MARKET RESEARCH WORKER * Sandy Bangura, LI - 08/06/2024 11:26 AM EDT Images from the original note were not included. OCCUPATIONAL THERAPY [facility] Treatment Note Name/MRN: Sandy Deng ([id number]) Date of : 1960 Age: 63 y.o. [...] Treatment Minutes: (Funct--1; Self--1) GUILLERMO Taylor * Shanti Bianchi, MANAGER [place]INA - 08/06/2024 10:26 AM EDT Images from the original note were not included. Speech-Language Pathology SPEECH LANGUAGE PATHOLOGY [facility] Dysphagia Treatment Note Patient Name: Sandy Deng Evaluation Date: 08/06/2024 Date of : 1960 Admission Date: 07/26/2024 4:17 PM Age: 63 y.o. Room/Bed: [facility] A Subjective Patient was awake and cooperative. Current Diet: Dietary Orders (From admission, onward) Start Ordered 08/04/24 1610 Adult diet Dysphagia - Pureed; Mildly Thick ([place]) Diet effective now Comments: Medications crushed and placed in pureed foods. Question Answer Comment Diet type Dysphagia - Pureed Fluid consistency Mildly Thick ([place]) 08/04/24 1611 08/03/24 1639 Supplement:PM Snack, HS [...] wheat. Plan & Recommendations Plan: Continue acute MANAGER [place]INA therapy per initial plan of care and [...] x 16. Plan & Recommendations Continue acute MANAGER [place]INA therapy per initial plan of care and [...] Start: 08/04/24 Expected End: 08/18/24 Therapy Time MANAGER [place] Individual Minutes Time In: 1000 Time Out: 1010 Minutes: 10 Shanti Bianchi MA, CCC/MANAGER [place] * Sandy FrankGUILLERMO Minaya - 08/06/2024 8:02 AM EDT Images from the original note were not included. OCCUPATIONAL THERAPY [facility] Name/MRN: Sandy Deng ([id number]) Date: 08/06/2024 Hold OT this a.m.; HgB 6.6 with order to transfuse. Will follow and treat as appropriate. GUILLERMO Taylor * Khai Espana DO - 08/06/2024 7:20 AM EDT Med Team Progress Note Sandy Deng : 1960(63 y.o.) Date: August 06, 2024 Med Team: Frank Attending: Dr. De La Garza Chief Complaint: Brain bleed Subjective: Sandy Deng is a 63 yo F with a PMH of COPD, diabetic neuropathy, hx of NSTEMI, stage 4 CKD (on HD TTS), and Type 1 diabetes. Initially patient presented to [facility] on 07/23 with acute respiratory distress [...] the nightstand. Pt was then transferred to [facility]. Initial infectious workup returned with CTX-M Pseudomonas [...] evaluated at bedside; recommend continuation of acute MANAGER [place]INA therapy - Diet order on pureed solids [...] signs of bleeding. 7AM-5PM: contact resident on [facility] Med A (find by hovering over attending's name on left side of patient's chart) 5PM-7AM: contact AI3 res * GUILLERMO Arndt - 08/05/2024 12:33 PM EDT Images from the original note were not included. OCCUPATIONAL THERAPY [facility] Treatment Note Name/MRN: Sandy Deng ([id number]) Date of : 1960 Age: 63 y.o. [...] assist due to retro-grade balance Device(s) used: [facility] Cognition - Arousal/alertness: appropriate responses to stimuli [...] tested positive for COVID on 07/24. At [facility] ICU she had worsening hypoxia and was placed on NIV but failed. Was ultimately intubated. Noted to be hypotensive and started on levophed. Ptwas transferred to [facility] for higher level of care. On arrival [...] S/P extubation at 4:20pm. 07/31: Pt removed johnosn. 08/01: Planning to transition from CRRT to [...] index is 21.54 kg/m . I/O: 08/04 0700 - 08/05 0659 In: 535 [P.O.:275; I.V.:60] Out: 175 [Urine:175] [...] Normal [] Scar/Lesion/Mass Inspection of teeth/lips/gums Dentition: [][place] Teeth []Dentures Lips/Gums: [x]Intact []Lesion Present Mucosa: [x][place] [x]Moist []Dry Neck: External Appearance Overall Appearance: [...] 17.7* ABGs: No results for input(s): PHART, QAD5QQD, PO2ART, PTS6ZAI, SO2ART, M3INWDAT in thelast 72 hours. Lactic Acid: Recent [...] evaluated at bedside; recommend continuation of acute MANAGER [place]INA therapy On Pureed solids and Mildly thick [...] original note were not included. PHYSICAL THERAPY [facility] Treatment Note Name/MRN: Sandy Deng ([id number]) Date of : 1960 Age: 63 y.o. [...] Risk Score: 40 (Medium Risk) Precautions/Restrictions: Lines/Drains/Airways: JEAN-PAUL, johnson, NC 2L (pt on 3L at [...] 08/31/24 Therapy Time Individual Co-treatment Time In 938 Time Out 1006 Minutes 27 Timed Code Treatment Minutes: (1 FA, 1 TP) JEY Caldwell * Svitlana Albarran CCC-MANAGER [place]INA - 08/05/2024 9:22 AM EDT Images from the original note were not included. Speech-Language Pathology SPEECH LANGUAGE PATHOLOGY [facility] Dysphagia Treatment Note Patient Name: Sandy Deng Evaluation Date: 08/05/2024 Date of : 1960 Admission Date: 07/26/2024 4:17 PM Age: 63 y.o. Room/Bed: T2/T2 A Subjective Patient alert and cooperative. Seen upright in bedside chair. Answers all basic questions with softvocal quality; patient appeared to have decreased respiratory support resulting in decreased volume. Follows some basic commands. RN briefly in room to administer medications. Spoke with RN Edilia who cleared pt for treatment. Current Diet: Dietary Orders (From admission, onward) Start Ordered 08/04/24 1610 Adult diet Dysphagia - Pureed; Mildly Thick ([place]) Diet effective now Comments: Medications crushed and placed in pureed foods. Question Answer Comment Diet type Dysphagia - Pureed Fluid consistency Mildly Thick ([place]) 08/04/24 1611 08/03/24 1639 Supplement:PM Snack, HS [...] wheat. Plan & Recommendations Plan: Continue acute MANAGER [place]INA therapy per initial plan of care and [...] Start: 08/04/24 Expected End: 08/18/24 Therapy Time MANAGER [place]INA Individual Minutes Time In: 0853 Time Out: 0910 Minutes: 17 Svitlana Albarran CCC-MANAGER [place]INA * Jose Carlos Medrano MD - 08/05/2024 8:09 AM EDT Images from the original note were not included. NEPHROLOGY SOAP NOTE Visit date: 08/05/24, 8:10 AM Patient: Sandy Deng Room number: T2-213/T2-213 A Date of Admit: 07/26/2024 LOS: 10 days Referring physician: Saroj Sadler MD Outpatient Hotel Security Officer: Christy Huerta DO ASSESSMENT/PLAN: UMA on CKD 4 - Cr has been 2.4-2.8, last (04/26) Cr 2.4 eGFR 20, 24 hr myvvosk=3123 mg. - On admit, (07/26) Cr 4.56, [...] tremor or myoclonus DATA: LABS: Recent Labs 08/03/24 0022 08/04/245 08/05/24 0256 WBC 10.8* 8.5 7.4 HGB 8.5* 8.3* 7.4* HCT 28.6* 26.5* 23.6* MCV 92.3 91.1 90.4 PLT 210 178 168 Recent Labs 08/03/24 0022 08/04/245 08/05/246 NA 137 134* 132* K 4.3 3.6 [...] IRON, TIBC, FERRITIN No results found for: [id number], FOLATE No results found for: COLORU, CLARITYU, [...] Narrative: Patient Name: SANDY DENG : 1960 Exam Date/Time: 08/05/2024 03:09 Procedure: XR CHEST [...] EDT Signed: Jose Carlos Medrano MD Nephrology [facility] ([facility]) Pager: [phone] Office Office * Janell Booker MD - [...] overall pt stable at this time. * RENATO Aguiar - 08/04/2024 2:59 PM EDT Images from the original note were not included. Speech-Language Pathology SPEECH LANGUAGE PATHOLOGY [facility] Modified Barium Swallow Study Patient Name: Sandy Deng Evaluation Date: 08/04/2024 Date of : 1960 Admission Date: 07/26/2024 4:17 PM Age: 63 y.o. Room/Bed: T2-213/T2 A IMPRESSION: The patient presents with moderate [...] aspiration. Pt would benefit from skilled acute MANAGER CHINA services to initiate oropharyngeal exercises, ensure diet [...] Diagnosis Date COPD (chronic obstructive pulmonary disease) ([facility]) Diabetic neuropathy ([facility]) Hyperlipidemia Myocardial infarct ([facility]) Stage 4 chronic kidney disease ([facility]) Type 1 diabetes ([facility]) Past Surgical History: Past Surgical History: Procedure Laterality Date CORONARY ANGIOPLASTY WITH STENT PLACEMENT CORONARY ANGIOPLASTY WITH STENT PLACEMENT Admission Diagnosis: Patient Active Problem List Diagnosis Date Noted SDH (subdural hematoma) ([facility]) 07/26/2024 COPD (chronic obstructive pulmonary disease) ([facility]) 07/26/2024 Type 1 diabetes mellitus with kidney complication ([facility]) 07/26/2024 Myocardial infarction (HCC) 07/26/2024 Hyperlipidemia 07/26/2024 Diabetic neuropathy associated with type 1 diabetes mellitus (HCC) 07/26/2024 Stage 4 chronic kidney disease (HCC) 07/26/2024 Pain: unable to answer but no evidence of same Reason for current admission: Found to have a subdural hematoma. She reportedly had a fall 1 month ago from bed. states she hit her head on the nightstand. She is on Plavix and ASA for a stent placed 7 years ago. Pt tested positive for COVID on 07/24. At [facility] ICU she had worsening hypoxiaand was placed on NIV but failed. Was ultimately intubated. Noted to be hypotensive and started on levophed. Pt was transferred to [facility] for higher level of care. On arrival [...] Start: 08/04/24 Expected End: 08/18/24 Therapy Time MANAGER [place]INA Individual Minutes Time In: 1350 Time Out: 1410 Minutes: 20 Shanti Bianchi MA, CCC/MANAGER [place] * May Wang, DO - 08/04/2024 11:22 [...] tested positive for COVID on 07/24. At [facility] she had worsening hypoxia and was placed on NIV but failed. Was ultimately intubated. Noted to be hypotensive and started on levophed. Ptwas transferred to [facility] for higher level of care. On arrival [...] 58.1 kg (128 lb 1.4 oz) (08/04/24 06) BMI Body mass index is 20.68 kg/m . I/O: 08/03 07 - 08/04 659 In: 524.8 [I.V.:524.8] Out: [...] Normal [] Scar/Lesion/Mass Inspection of teeth/lips/gums Dentition: [][place] Teeth []Dentures Lips/Gums: []Intact []Lesion Present Mucosa: [][place] []Moist []Dry Neck: External Appearance Overall Appearance: [...] 17.4* ABGs: No results for input(s): PHART, VHV7MZR, PO2ART, JDJ9VJG, SO2ART, W8XVHQSL in thelast 72 hours. 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 Saroj Sadler MD * Svitlana Albarran, [facility]MANAGER [place] - 08/04/2024 9:23 AM EDT Images from the original note were not included. Speech-Language Pathology SPEECH LANGUAGE PATHOLOGY [facility] Dysphagia Treatment Note Patient Name: Sandy Deng Evaluation Date: 08/04/2024 Date of : 1960 Admission Date: 07/26/2024 4:17 PM Age: 63 y.o. Room/Bed: T2-213/T2-213 A Subjective Patient alert and cooperative. Seen upright in bedside chair. Answers all basic questions with clear, strong vocal quality. Follows all basic commands. Visitors at bedside - significant other. Spoke with BO Roblero who cleared pt for treatment. Current [...] liquids. Plan & Recommendations Plan: Continue acute MANAGER [place]INA therapy per initial plan of care and [...] Start: 08/04/24 Expected End: 08/18/24 Therapy Time MANAGER [place] Individual Minutes Time In: 854 Time Out: 904 Minutes: 10 Svitlana Albarran CCC-MANAGER [place] * Shanti García RD - 08/03/2024 4:36 [...] mass loss Fluid Accumulation: Mild Extremities, Generalized Academic Department Chair Strength: Not Performed Nutrition Assessment: Pt is a 63-year-old female with multiple medical co-morbidities including Type I DM (on insulin pump), COPD on 4L home O2, CKD4, on ASA/Plavix who [facility] 07[facility] withacute respiratory distress and acute delirium. 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 She was found to be hypoxic and hypercarbic, and COVID positive. She continued to be delirious and did not tolerate NIV, and required intubation 07/27/24. A CT head was done to evaluate her altered mental status, and she was found to have a small acute right sided SDH vs. epidural hematoma. For this reason, [facility] consulted for further neurologic management and she [...] act but not able to answer questinos. MANAGER CHINA evaluated pt today 08/03/24 and recommends a soft and bitesized diet; pt is on same. Estimated Daily Nutrient Needs: Energy Requirements Based On: Kcal/kg Weight Used for Energy Requirements: [place] Weight for Energy Calculation (kg): 59 kg Total Energy Requirements (kcals/day): 25-30 kcals/kg = 3328-7960 kcals/day Weight Used for Protein Requirements: [place] Weight in Kg Used for Protein Requirements: [...] Weight: 48 kg (105 lb 13.1 oz) [place] Body Weight (lbs) (Calculated): 130 lbs [place] Body Weight (Kg) (Calculated): 59 kg % [place] Body Weight (Calculated): 105.1 % BMI (kg/m2) [...] soon to determine Shanti García RD,LD,CNSC Contact: *[phone] or [employer] * Jose Carlos Medrano MD - 08/03/2024 1:32 PM EDT Images from the original note were not included. NEPHROLOGY SOAP NOTE Visit date: 08/03/24, 1:32 PM Patient: Sandy Deng Room number: T2-213/T2-213 A Date of Admit: 07/26/2024 LOS: 8 days Referring physician: Fly De La Garza DO Outpatient Hotel Security Officer: Christy Huerta DO ASSESSMENT/PLAN: Non oliguric UMA on CKD 4 - Cr has been 2.4-2.8, last (04/26) Cr 2.4 eGFR 20, 24 hr xvalixn=9517 mg. - On admit, (07/26) Cr 4.56, [...] 1.676 m (5' 6) Comment: per RD [facility] review Wt 62 kg (136 lb 11 [...] IRON, TIBC, FERRITIN No results found for: [id number], FOLATE No results found for: COLORU, CLARITYU, [...] LABFUNG IMAGING: POCT glucose meter [facility]formed by: [facility] [employer] [facility], [address] [place] [id number] CLIA ID: [id number] POCT glucose meter Performed by: [facility], [address] [place] [id number] CLIA ID: [id number] POCT glucose meter Performed by: [facility], [address] [place] [id number] CLIA ID: [id number] Signed: Jose Carlos Medrano MD Nephrology [facility] ([facility]) Pager: [phone] Office Office * [place] Sahni, MANAGER [place] - 08/03/2024 9:46 AM EDT Images from the original note were not included. Speech-Language Pathology SPEECH LANGUAGE PATHOLOGY [facility] Dysphagia Treatment Note Patient Name: Sandy Deng Evaluation Date: 08/03/2024 Date of : 1960 Admission Date: 07/26/2024 4:17 PM Age: 63 y.o. Room/Bed: T2/T2 A Subjective Patient lethargic and cooperative. Seen upright in bedside chair. Answers some basic questions withweak vocal quality. Follows all basic commands. Visitors at bedside - spouse. Spoke with BO Washington who cleared pt for treatment. Current Diet: [...] per dysphagia plan of care. Continue acute MANAGER [place] therapy per initial plan of care and [...] Start: 08/01/24 Expected End: 08/15/24 Therapy Time MANAGER [place] Individual Minutes Time In: 922 Time Out: 934 Minutes: 12 RENATO Kern * Jennifer Saldaña - 08/03/2024 9:36 AM EDT Images from the original note were not included. PHYSICAL THERAPY [facility] Initial Evaluation Name/MRN: Sandy Deng ([id number]) Evaluation Date: 08/03/2024 Date of : 1960 Admission Date: 07/26/2024 4:17 PM Age: 63 y.o. Room/Bed: T2-213/T2 A Discharge Recommendation: Continue to assess pending [...] Diagnosis Date COPD (chronic obstructive pulmonary disease) ([facility]) Diabetic neuropathy ([facility]) Hyperlipidemia Myocardial infarct ([facility]) Stage 4 chronic kidney disease ([facility]) Type 1 diabetes ([facility]) Past Surgical History: Past Surgical History: Procedure Laterality Date CORONARY ANGIOPLASTY WITH STENT PLACEMENT CORONARY ANGIOPLASTY WITH STENT PLACEMENT Admission Diagnosis: Patient Active Problem List Diagnosis Date Noted SDH (subdural hematoma) ([facility]) 07/26/2024 COPD (chronic obstructive pulmonary disease) ([facility]) 07/26/2024 Type 1 diabetes mellitus with kidney complication ([facility]) 07/26/2024 Myocardial infarction ([facility]) 07/26/2024 Hyperlipidemia 07/26/2024 Diabetic neuropathy associated with type 1 diabetes mellitus ([facility]) 07/26/2024 Stage 4 chronic kidney disease ([facility]) 07/26/2024 Medical Precautions: No active [...] Responsibilities: Independent Receives Help From: Spouse Active Equipment Analyst: N/A Prior Level of Function ADL Assistance: [...] Raw Score (No Stairs) : 10 [facility] Score: Transferred to chair/commode Plan Pt [...] of Care supervision is transferred to a [facility] Therapy Services Physical Therapist. Goals and/or treatment plan was established in collaboration with patient/family/other representatives. * May Wang, - 08/03/2024 7:05 AM EDT ICU Progress [...] tested positive for COVID on 07/24. At [place] ICU she had worsening hypoxia and was placed on NIV but failed. Was ultimately intubated. Noted to be hypotensive and started on levophed. Pt was transferred to [facility] for higher level of care. On arrival [...] (97.6 F) (08/03/24 0000) Pulse 65 (08/03/24 06) Resp 25 (08/03/24 0600) SpO2 100 % (08/03/24599) Weight 62 kg (136 lb 11 oz) (07/29/24 0500) BMI Body mass index is 22.06 kg/m . I/O: 08/02 0700 - 08/03 0659 In: 787 [P.O.:120; I.V.:567] Out: 445 [Urine:445] [...] Normal [] Scar/Lesion/Mass Inspection of teeth/lips/gums Dentition: [x][place] Teeth []Dentures Lips/Gums: [x]Intact []Lesion Present Mucosa: [x][place] [x]Moist []Dry Neck: External Appearance Overall Appearance: [...] 18.1* ABGs: No results for input(s): PHART, EOT3OQL, PO2ART, QAT8GUB, SO2ART, J6HJFWSP in the last 72 hours. Labs in [...] and Plan: Principal Problem: SDH (subdural hematoma) ([facility]) Active Problems: COPD (chronic obstructive [...] - Stop CRRT. HD on friday per nephreza T1DM ISS D5 in NS as pt is not wanting to eat Anorexia Pt cleared for soft and bite sized diet per MANAGER [place]. Has not expressed desire to eat. -Start [...] original note were not included. PHYSICAL THERAPY [facility] Name/MRN: Sandy Deng ([id number]) Date: 08/02/2024 Attempt Note. PT Eval and [...] Warner RCP - 08/02/2024 12:05 PM EDT [facility] Respiratory Care Department Progress Note As [...] not included. Speech-Language Pathology SPEECH LANGUAGE PATHOLOGY [facility] Dysphagia Treatment Note Patient Name: Sandy Deng Evaluation Date: 08/02/2024 Date of : 1960 Admission Date: 07/26/2024 4:17 PM Age: 63 y.o. Room/Bed: T2-213/T2213 A Subjective Patient alert, confused and cooperative. Seen upright in bed. Answers some basic questions with clear vocal quality. Follows some basic commands. Visitors at bedside - spouse. Spoke with BO Braga who cleared pt for treatment. Current [...] per dysphagia plan of care. Continue acute MANAGER [place] therapy per initial plan of care and [...] Start: 08/01/24 Expected End: 08/15/24 Therapy Time MANAGER [place] Individual Minutes Time In: 1057 Time Out: 1106 Minutes: 9 RENATO Kern * Jamey Muro OT - 08/02/2024 11:09 AM EDT Images from the original note were not included. OCCUPATIONAL THERAPY [facility] Initial Evaluation Name/MRN: Sandy Deng ([id number]) Evaluation Date: 08/02/2024 Date of : 1960 [...] Diagnosis Date COPD (chronic obstructive pulmonary disease) ([facility]) Diabetic neuropathy ([facility]) Hyperlipidemia Myocardial infarct ([facility]) Stage 4 chronic kidney disease ([facility]) Type 1 diabetes ([facility]) Past Surgical History: Past Surgical History: Procedure Laterality Date CORONARY ANGIOPLASTY WITH STENT PLACEMENT CORONARY ANGIOPLASTY WITH STENT PLACEMENT Admission Diagnosis: Patient Active Problem List Diagnosis Date Noted SDH (subdural hematoma) ([facility]) 07/26/2024 COPD (chronic obstructive pulmonary disease) ([facility]) 07/26/2024 Type 1 diabetes mellitus with kidney complication ([facility]) 07/26/2024 Myocardial infarction ([facility]) 07/26/2024 Hyperlipidemia 07/26/2024 Diabetic neuropathy associated with type 1 diabetes mellitus ([facility]) 07/26/2024 Stage 4 chronic kidney disease ([facility]) 07/26/2024 Medical Precautions: No active [...] Responsibilities: Independent Receives Help From: Spouse Active Equipment Analyst: N/A Prior Level of Function ADL Assistance: [...] of Care supervision is transferred to a [facility] Therapy Services Occupational Therapist. Goals and/or treatment plan was established in collaboration with patient/family/other representatives. * Karyn Jones MD - 08/02/2024 10:06 AM EDT Images from the original note were not included. Nephrology Progress Note Patient: Sandy Deng Room number: T2-213/T2-213 A Date of Admit: 07/26/2024 LOS: 7 days Referring physician: Saroj Sadler MD Outpatient Hotel Security Officer: Christy Huerta Assessment/Plan: Mrs. Sandy Deng is a 63 year old female with PMH of CKD 4, DM type 1, HTN, CAD, COPD (3L Q2wflrtvvr), initially presenting with resp distress and delirium, Covid positive. She was eventuallyintubated. CT head showed a small right SDH. Consulted for UMA on CKD 4 - follows with Dr Wilson ([place]). On review of available labs, Cr has been 2.4-2.8, last (04/26) Cr 2.4 eGFR 20, 24 hr krdgykn=3640 mg. On admit, (07/26) Cr 4.56, CRRT initiation for severe acidosis in setting of hemodynamic instability 07/26-08/01. Renal plan: Non oliguric UMA on CKD 4 - Cr has been 2.4-2.8, last (04/26) Cr 2.4 eGFR 20, 24 hr xdwxsqc=3896 mg. - On admit, (07/26) Cr 4.56, [...] will start service tomorrow. Karyn Jones MD [facility] ([facility]) Pager [phone] Office phone: [phone] Office fax: [phone] 08/02/2024 Subjective Noted weekend events, episode of [...] 75 mL/hr, Last Rate: 75 mL/hr (08/01/24 2155) Review of Systems: As above Physical Exam: [...] Catheter-Output (mL): 5 mL [REMOVED] Urethral Catheter Szsmpcru-lwt-Ufjbsj (mL): 0 mL Urethral Catheter Straight-tip;Temperature probe-Output [...] tested positive for COVID on 07/24. At [place] ICU she had worsening hypoxia and was placed on NIV but failed. Was ultimately intubated. Noted to be hypotensive and started on levophed. Pt was transferred to [facility] for higher level of care. On arrival [...] 75 mL/hr, Last Rate: 75 mL/hr (08/01/24 2155) Objective: Last Vitals: BP MAP 148/57 (08/02/24 0500) 78 (08/02/24 0500) Arterial BP MAP 99/37 (07/31/24 1320) 54 mmHg (07/31/24 1320) Temp 36.4 C (97.6 F) (08/02/24 0400) Pulse 76 (08/02/24 0500) Resp 20 (08/02/24 0500) SpO2 100 % (08/02/24 0500) Weight 62 kg (136 lb 11 oz) (07/29/24 0500) BMI Body mass index is 22.06 kg/m . I/O: 08/01 07 - 08/02 0659 In: 1971 [I.V.:1971] Out: [...] Normal [] Scar/Lesion/Mass Inspection of teeth/lips/gums Dentition: [x][place]eth []Dentures Lips/Gums: [x]Intact []Lesion Present Mucosa: [x][place] [x]Moist []Dry Neck: External Appearance Overall Appearance: [...] 4.1 4.1 CL 106 106 107 CO2 23 BUN 14 13 21* CREATININE 0.90 0.87 1.55* CALCIUM 7.4* 7.2* 7.4* MG -- -- 2.3 PHOS 2.6 2.3* 3.0 LFTs: Recent Labs 08/01/24 0002 08/01/24 0608 08/01/24 115 ALBUMIN 2.1* 2.0* 2.1* Glucose: Recent Labs 07/31/24 0007 07/31/24 0604 07/31/24 0605 07/31/24 1216 07/31/24 1220 07/31/24 18007/31/24 18107/31/24200408/01/24 0002 08/01/24 0003 08/01/24 0608 08/01/24 1148 [...] displayed. CBC: Recent Labs 07/31/24 1216 07/31/24 18008/01/24 0608 08/02/24 0025 WBC 15.0* -- 10.4 9.8 HGB 6.8* 8.0* 8.3* 7.8* HCT 21.6* 25.4* 25.9* 24.7* PLT 158 -- 156 177 MCV 91.1 -- 88.1 89.8 RDW 15.2* -- 17.1* 17.8* ABGs: Recent Labs 07/30/24 0936 07/31/24 06 PHART 7.399 7.335* OKB8SHK 44.6 47.9* PO2ART 113.8* 143.8* VCC6NLX 26.9* 25.0 [id number] 30% Oxygen Nasal cannula Labs in Last [...] CRRT. HD on friday per nephro T1DM ISS D5 in NS as pt is not wanting to eat Anorexia Pt cleared for soft and bite sized diet per MANAGER [place]. Has not expressed desire to eat. -Start [...] is not at baseline cognition after extubation. [facility] now signed off GI Prophylaxis: Pantoprazole IV DVT Prophylaxis: Heparin subcutaneous Disposition: Transfer to telemetry Associated attestation - Saroj Sadler MD - 08/02/2024 1:40 PM EDT I have personally performed a ysec-ov-vjoh diagnostic evaluation on this patient on date of service08/02/24. History, labs, imaging studies, and electronic medical record have been reviewed by me. This note documented by the [x]house painting instructor []TONJA reflects my history, exam, and medical [...] tested positive for COVID on 07/24. At [place] ICU she had worsening hypoxia and was placed on NIV but failed. Was ultimately intubated. Noted to be hypotensive and started on levophed. Pt was transferred to [facility] for higher level of care. On arrival [...] time. Was cleared for pureed diet by MANAGER [place]. Scheduled Meds:dexAMETHasone, 6 mg, IntraVENous, q24h Glycopyrrolate-Formoterol, [...] I/O: 07/31 0700 - 08/01 0659 In: 2298 [I.V.:1949] Out: 3089 [Urine:625] Ventilator: Resp Rate [...] Normal [] Scar/Lesion/Mass Inspection of teeth/lips/gums Dentition: [x][place]eth []Dentures Lips/Gums: [x]Intact []Lesion Present Mucosa: [x][place] [x]Moist []Dry Neck: External Appearance Overall Appearance: [...] 4.0 4.1 CL 105 106 106 CO2 BUN 15 14 13 CREATININE 0.85 0.90 0.87 CALCIUM 7.8* 7.4* 7.2* PHOS 3.0 2.6 2.3* LFTs: Recent Labs 08/01/24 0002 08/01/24 0608 08/01/24 1151 ALBUMIN 2.1* 2.0* 2.1* Glucose: Recent Labs 07/30/24 1715 07/30/24199907/31/24 0007 07/31/24 0604 07/31/24 0605 07/31/24 1216 07/31/24 1220 07/31/24 18007/31/24 1810 07/31/24 1843 07/31/24 2005 08/01/24 0002 08/01/24 0003 08/01/24 0608 08/01/24 1148 08/01/24 1151 GLUCOSE 114* -- 229* -- 161* 104* -- 173* -- -- -- 161* -- 119* -- 170* POCGLU -- < > -- 177* -- -- 127* -- 61* 118* 107* -- 161* 120* 166* -- < > = values in this interval not displayed. CBC: Recent Labs 07/31/24 0607/31/24 12107/31/24 18008/01/24 0608 WBC 13.3* 15.0* -- 10.4 HGB 7.1 7.1* 6.8* 8.0* 8.3* HCT 22.3* 21.6* 25.4* 25.9* PLT 146 158 -- 156 MCV 92.9 91.1 -- 88.1 RDW 15.2* 15.2* -- 17.1* ABGs: Recent Labs 07/30/24 0212 07/30/24 0936 07/31/24 0605 PHART 7.370 7.399 7.335* PNW7NQX 46.3* 44.6 47.9* PO2ART 114.1* 113.8* 143.8* XUJ2TCV 26.2* 26.9* 25.0 [id number] Vent 30% Oxygen Nasal cannula Labs in [...] and Plan: Principal Problem: SDH (subdural hematoma) ([facility]) Active Problems: COPD (chronic obstructive [...] in ICU Status Associated attestation - Kena Heath, - 08/01/2024 3:21 PM EDT I have personally performed a rpmh-lq-ppno diagnostic evaluation on this patient on date of service08/01/2024. History, labs, imaging studies, and electronic medical record have been reviewed by me. This note documented by the [x]house painting instructor []TONJA reflects my history, exam, and medical [...] days Referring physician: Kena Heath DO Outpatient Hotel Security Officer: Christy Huerta Assessment/Plan: Mrs. Sandy Deng is a 63 year old female with PMH of CKD 4, DM type 1, HTN, CAD, COPD (3L K2utdgadwy), initially presenting with resp distress and delirium, Covid positive. She was eventuallyintubated. CT head showed a small right SDH. Consulted for UMA on CKD 4 - follows with Dr Wilson ([place]). On review of available labs, Cr has been 2.4-2.8, last (04/26) Cr 2.4 eGFR 20, 24 hr zoujmio=9022 mg. On admit, (07/26) Cr 4.56, CRRT [...] back on service tomorrow. Case discussed with RN. Joni Monson MD [facility] ([facility]) Office phone: [phone] Office fax: [phone] 08/01/2024 Subjective Patient seen this am during [...] Catheter-Output (mL): 5 mL [REMOVED] Urethral Catheter Gegfkaki-efs-Abrlbb (mL): 0 mL Urethral Catheter Straight-tip;Temperature probe-Output [...] 146 158 -- 156 Recent Labs 07/31/24 18008/01/24 0002 08/01/24 0608 08/01/24 1151 NA 130* [...] not included. Speech-Language Pathology SPEECH LANGUAGE PATHOLOGY [facility] Dysphagia Treatment Note Patient Name: Sandy Deng Evaluation Date: 08/01/2024 Date of : 1960 Admission Date: 07/26/2024 4:17 PM Age: 63 y.o. Room[facility]: [facility] A Subjective Patient was awake and cooperative. Needed encouragement to participate. Spoke with BO Laughlin who cleared pt for treatment. Current Diet: Dietary Orders (From admission, onward) Start Ordered 07/31/241704 NPO diet with enteral medications Diet effective now Question: Medications? Answer: with enteral medications 07/31/241703 Oxygen: Oxygen Therapy: Supplemental oxygen O2 Delivery [...] PO diet. Plan & Recommendations Continue acute MANAGER [place] therapy per initial plan of care and [...] Start: 08/01/24 Expected End: 08/15/24 Therapy Time MANAGER [place] Individual Minutes Time In: 0845 Time Out: 0900 Minutes: 15 Shanti Bianchi MA, CCC/MANAGER [place] * Joni Monson MD - 07/31/2024 2:48 PM EDT Images from the original note were not included. Nephrology Progress Note Patient: Sandy Deng Room number: T2-213/T2-213 A Date of Admit: 07/26/2024 LOS: 5 days Referring physician: Kena Heath DO Outpatient Hotel Security Officer: Christy Huerta Assessment/Plan: Mrs. Sandy Deng is a 63 year old female with PMH of CKD 4, DM type 1, HTN, CAD, COPD (3L W2syjuswgf), initially presenting with resp distress and delirium, Covid positive. She was eventuallyintubated. CT head showed a small right SDH. Consulted for UMA on CKD 4 - follows with Dr Wilson ([place]). On review of available labs, Cr has been 2.4-2.8, last (04/26) Cr 2.4 eGFR 20, 24 hr eykxwif=5010 mg. On admit, (07/26) Cr 4.56, CRRT [...] care of this patient. Joni Monson MD [facility] ([facility]) Office phone: [phone] Office fax: [phone] 07/31/2024 Subjective Patient seen this am during [...] Lying Pulse: 82 77 76 74 Resp: 12 16 12 Temp: 36 C (96.8 [...] Catheter-Output (mL): 5 mL [REMOVED] Urethral Catheter Fnzinxfl-biw-Dvibne (mL): 0 mL Urethral Catheter Straight-tip;Temperature probe-Output [...] CL 104 105 105 105 CO2 24 24 25 BUN 24* 24* 22* 19* CREATININE 0.98 0.98 0.91 0.89 GLUCOSE 114* 229* 161* 104* CALCIUM 8.7 8.7 8.7 8.7 PHOS 3.7 4.0 3.8 3.2 ANIONGAP 0* 3 3 2* Diagnostic Studies: CXR 07/30: IMPRESSION: 1. No acute cardiopulmonary abnormality identified. COPD changes. 2. Lines and support devices as above. * Mary Menard, MANAGER [place] - 07/31/2024 2:22 PM EDT Images from the original note were not included. Speech-Language Pathology SPEECH LANGUAGE PATHOLOGY [facility] Bedside Swallow Evaluation Patient Name: Sandy Deng [...] 08/01. Pt would benefit from skilled acute MANAGER [place] services to address further assess po intake at bedside with recommendations as appropriate. Frequency: 3 days/wk for 2 weeks Barriers: Lack of desire for po, delayed response Prognosis: good D/C Recommendations: to be determined Subjective Patient alert and delayed responses. Seen upright in bed. Answers some basic questions with clear vocal quality. Follows some basic commands. Visitors at bedside - family/spouse. Spoke with BO Laughlin who cleared pt to be evaluated. Dysphagia History: No history of MANAGER [place] services in EMR with retrospective chart review [...] List Diagnosis Date Noted SDH (subdural hematoma) ([facility]) 07/26/2024 COPD (chronic obstructive pulmonary disease) ([facility]) 07/26/2024 Type 1 diabetes mellitus with kidney complication ([facility]) 07/26/2024 Myocardial infarction ([facility]) 07/26/2024 Hyperlipidemia 07/26/2024 Diabetic neuropathy associated with type 1 diabetes mellitus ([facility]) 07/26/2024 Stage 4 chronic kidney disease ([facility]) 07/26/2024 History of Present Illness: 63 year old female with a PMHx of COPD (3L O2 baseline), DM, CKD 4, HTN, CAD, SC (PCI with stents in 2017). at bedside. Pt was admitted to [facility] due to confusionand hallucinations. Pt has had episodes of staring off into space per family. Was found to have a subdural hematoma. She reportedly had a fall 1 month ago from bed. states she hit her head onthe nightstand. She is on Plavix and ASA for a stent placed 7 years ago. Pt tested positive for COVID on 07/24. Today at [place] ICU she had worsening hypoxia and was placed on NIV but failed. Was ultimately intubated. Noted to be hypotensive and started on levophed. Pt was transferred to [facility] for higher level of care. On arrival [...] clinical dysphagia evaluation Start: 07/31/24 Therapy Time MANAGER [place] Individual Minutes Time In: 1357 Time Out: 1419 Minutes: 22 RENATO Underwood * Joycelyn Diane DO - 07/31/2024 7:54 AM EDT ICU Progress Note Name: Sandy Deng : 1960(63 y.o.) Date: 07/31/24 Team: MICU Attending: Dr. Jones Subjective: Hospital Summary: 63 year old female with a PMHx of COPD (3L O2 baseline), DM, CKD 4, HTN, CAD, SC (PCI with stents in 2017). at bedside. Pt was admitted to [facility] due to confusion and hallucinations. Pt has had episodes of staring off into space per family. Was found to have a subdural hematoma. She reportedly had a fall 1 month ago from bed. states she hit her head on the nightstand. She is on Plavix and ASA for a stent placed 7 years ago. Pt tested positive for COVID on 07/24. Today at [place] ICU she had worsening hypoxia and was placed on NIV but failed. Was ultimately intubated. Noted to be hypotensive and started on levophed. Pt was transferred to [facility] for higher level of care. On arrival [...] 100 mL/hr, Last Rate: 100 mL/hr (07/30/24 173) PrismaSol BGK 2/3.5, 750 mL/hr, Last Rate: 750 mL/hr (07/30/241903) PrismaSol BGK 2/3.5, 750 mL/hr, Last Rate: 750 mL/hr (07/30/241903) PrismaSol BGK 2/3.5, 750 mL/hr, Last Rate: 750 mL/hr (07/30/241903) Objective: Last Vitals: BP MAP 102/67 (07/31/24 0100) 74 (07/31/24 0100) Arterial BP MAP 141/52 (07/31/24 0700) 75 mmHg (07/31/24 07) Temp 36.1 C (97 F) (07/31/24 0400) Pulse 79 (07/31/24 07) Resp (!) 10 (07/31/24 07) SpO2 99 % (07/31/24699) Weight 62 kg (136 lb 11 oz) (07/29/24 0500) BMI Body mass index is 22.06 kg/m . I/O: 07/30 0700 - 07/31 0659 In: 2270 [I.V.:1577] Out: [...] Normal [] Scar/Lesion/Mass Inspection of teeth/lips/gums Dentition: [][place] Teeth []Dentures Lips/Gums: [x]Intact []Lesion Present Mucosa: [x][place] [x]Moist []Dry Neck: External Appearance Overall Appearance: [...] 24 hours- BMP: Recent Labs 07/28/24 1257 07/28/24180707/30/24171407/31/24 00007/31/24 0605 NA 130* < > 132* 132* 131* K 4.5 < > 4.5 4.5 4.2 CL 102 < > 104 105 105 CO2 24 < > 24 BUN 31* < > 24* 24* 22* CREATININE 1.50* < > 0.98 0.98 0.91 CALCIUM 7.3* < > 8.7 8.7 8.7 MG 2.7* -- -- -- -- PHOS 3.5 < > 3.7 4.0 3.8 < > = values in this interval not displayed. LFTs: Recent Labs 07/28/24 1257 07/28/24180707/30/24171407/31/24 0007 07/31/24 0605 AST 44 -- -- -- -- ALT 23 -- -- -- -- PROT 4.6* -- -- -- -- ALBUMIN 2.2* < > 2.0* 2.2* 2.1* BILITOT 0.5 -- -- -- -- ALKPHOS 78 -- -- -- -- < > = values in this interval not displayed. Glucose: Recent Labs 07/29/24 1736 07/29/24 1844 07/29/24 1900 07/29/24201307/29/24202007/29/24202107/30/24 0028 07/30/24 0557 07/30/24 0601 07/30/24 1114 [...] 0936 07/31/24 0605 PHART 7.370 7.399 7.335* MCF2UQQ 46.3* 44.6 47.9* PO2ART 114.1* 113.8* 143.8* RXN5USJ 26.2* 26.9* 25.0 [id number] Vent 30% Oxygen Nasal cannula Lactic Acid: [...] after extubation. NCC now signed off - [facility] 6. Protecting airway. Will continue to monitor [...] PM EDT I have personally performed a vcdh-sa-jvki diagnostic evaluation on this patient on date of service07/31/2024. History, labs, imaging studies, and electronic medical record have been reviewed by me. This note documented by the [x]house painting instructor []TONJA reflects my history, exam, and medical [...] minutes so far today, excludingprocedures. * Mary Mcintosh, SHAKER REPAIRER - 07/30/2024 11:48 AM EDT 07/30/24 1141 [...] days Referring physician: Kena Heath DO Outpatient Hotel Security Officer: Christy Huerta Reason for Consult: Asked to [...] 4 - follows with Dr Christy Huerta ([place]). - On review of available labs, Cr has been 2.4-2.8, last (04/26) Cr 2.4 eGFR 20, 24 hr yrkhpwh=8381 mg. - Home med includes losartan 25 [...] intubated, per CCM - remdesivir/steroids/meropenem 8. Altered MS, improving Trace [...] 4 - follows with Dr Christy Huerta ([place]). On review of available labs, Cr has been 2.4-2.8, last (04/26) Cr 2.4 eGFR 20, 24 hr tsngaml=4640 mg. Home med includes losartan 25 mg [...] Urethral Catheter-Output (mL): 5 mL Urethral Catheter Lhqzsncb-eom-Jzvcuj (mL): 0 mL FIO2 needs: Patient Vitals [...] IRON, TIBC, FERRITIN No results found for: [id number], FOLATE Recent Labs 07/27/24 2114 07/28/24 0409 07/28/24 1257 07/28/24 1808 07/29/24 1115 07/29/24 1736 07/29/24202007/30/24 0028 07/30/24 0557 NA 131* 131* 130* < > 131* 133* -- 132* 132* K 3.6 4.5 4.5 < > 4.9 5.0 -- 5.3* 5.4* CL 102 104 102 < > 104 106 -- 106 105 CO2 24 23 24 < > 26 -- 26 BUN 41* 34* 31* < > [...] studies and notes. Karyn Jones MD Pager [phone] [facility] [phone] D/w ICU * Torito Mahajan - 07/30/2024 10:36 AM EDT NEUROCRITICAL CARE PROGRESS NOTE Patient Name: Sandy Deng Patient : 1960 Acct: [id number] Date of Admission: 07/26/2024 Room[facility] A PCP: Bird Lujan Interval Events: - Removed from EEG - Neuro exam improving, following commands Current Hospital Medications: Current Facility-Administered Medications: alteplase (Cathflo Activase) 2 mg in sterile water 2 mL injection, 2 mg, IntraCATHeter, PRN, Saroj Knox MD, 2 mg at 07/29/24 0646 dexAMETHasone (Decadron) injection 6 mg, 6 mg, IntraVENous, q24h, Kena Heath DO, 6 mg at 07/29/24 1810 dexmedeTOMIDine in NS (Precedex) 400 mcg in 100 mL (4 mcg/mL) infusion, 0.1-1.5 mcg/kg/hr, IntraVENous, Continuous, Lakhwinder Gustafson DO, Last Rate: 6.2 mL/hr at 07/30/24 1000, 0.4 mcg/kg/hr at 07/30/24 1000 dextrose 5 % infusion, 100 mL/hr, IntraVENous, [...] Joycelyn Diane DO, 5,000 Units at 07/30/24 09 hydrALAZINE (Apresoline) injection 10 mg, 10 mg, [...] in 0.9 % sodium chloride 250 mL (Ztl-Hpfuvs-Mwgdg) (premix), 2-100 mcg/min, IntraVENous, Continuous, Simone Momin [...] Jones MD, Last Rate: 750 mL/hr at 07/30/24746, 750 mL/hr at 07/30/24746 [COMPLETED] remdesivir (Veklury) 200 mg in sodium [...] -- -- 64 16 100 % 07/30/24 0945 -- -- -- 63 16 100 % 07/30/24 0930 -- -- -- 64 16 100 % 07/30/24 0915 -- -- -- 62 16 100 % 07/30/24 0900 -- -- -- 65 16 100 % 07/30/24 0845 -- -- -- 63 16 100 % 07/30/24 0830 -- -- -- 63 16 100 % 07/30/24 0815 -- -- -- 63 16 100 % 07/30/24 0800 145/54 36.3 C (97.3 F) Temporal 65 16 100 % 07/30/24 0745 -- -- -- 68 16 100 % 07/30/24 0730 -- -- -- 66 16 100 % 07/30/24 0715 -- -- -- 65 16 100 % 07/30/24 0700 -- -- -- 64 16 100 % 07/30/24 0645 -- -- -- 64 16 100 % 07/30/24 0630 -- -- -- 65 16 100 % 07/30/24 0615 -- -- -- 64 16 100 % 07/30/24 0600 -- -- -- 65 16 100 % 07/30/24 0545 -- -- -- 65 16 100 % 07/30/24 0530 -- -- -- 64 16 100 % [...] 78 ALT 23 AST 44 BILITOT 0.5 @BRIEFLAB([facility]) ABGs:)No results for input(s): PH, PO2, PCO2, [...] original note were not included. PHYSICAL THERAPY [facility] Name/MRN: Sandy Deng ([id number]) Date: 07/30/2024 Screen Note. Pt remains intubated and sedated with orders for strict bed rest. Will continue to follow and re-attempt as able. Jennifer Saldaña, SPT * Joycelyn Diane DO - 07/30/2024 5:21 AM EDT ICU Progress Note Name: Sandy Deng : 1960(63 y.o.) Date: 07/30/24 Team: MICU Attending: Dr. Jones Subjective: Hospital Summary: 63 year old female with a PMHx of COPD (3L O2 baseline), DM, CKD 4, HTN, CAD, SC (PCI with stents in 2017). at bedside. Pt was admitted to [facility] due to confusion and hallucinations. Pt has had episodes of staring off into space per family. Was found to have a subdural hematoma. She reportedly had a fall 1 month ago from bed. states she hit her head on the nightstand. She is on Plavix and ASA for a stent placed 7 years ago. Pt tested positive for COVID on 07/24. Today at [facility] ICU she had worsening hypoxia and was placed on NIV but failed. Was ultimately intubated. Noted to be hypotensive and started on levophed. Pt was transferred to [facility] for higher level of care. On arrival [...] 4/2.5, 750 mL/hr, Last Rate: 750 mL/hr (07/30/2435) propofol, 5-50 mcg/kg/min, Last Rate: 25 mcg/kg/min (07/29/242299) Objective: Last Vitals: BP MAP (!) 71/31 [...] Normal [] Scar/Lesion/Mass Inspection of teeth/lips/gums Dentition: [][place] Teeth []Dentures Lips/Gums: [x]Intact []Lesion Present Mucosa: [x][place] [x]Moist []Dry Neck: External Appearance Overall Appearance: [...] 1257 07/28/24 1808 07/29/24 1115 07/29/24 1736 07/30/24 0028 NA 131* 131* 130* < > [...] Labs 07/27/24 0530 07/27/24 1427 07/28/24 1257 07/28/24 1808 07/29/24 1115 07/29/24 1736 07/30/24 0028 AST 28 -- 44 -- -- [...] 07/28/24 1257 07/28/24 1514 07/28/24 1808 07/28/24200607/28/24 23407/28/24 23407/29/24 0557 07/29/24 0601 07/29/24 1115 07/29/24 1736 [...] 07/29/24 0558 07/29/24 1006 07/29/24 1408 07/30/24 0212 WBC 14.5* -- 11.5* 6.5 -- -- [...] 1408 07/30/24 0212 PHART 7.506* 7.439 7.370 UZW5UAJ 34.5* 37.9 46.3* PO2ART 88.9 96.3 114.1* PUV2VYH 26.7* 25.1* 26.2* Y4HNVGOG 30% Oxygen 30% Oxygen Vent Lactic Acid: [...] and Plan: Principal Problem: SDH (subdural hematoma) ([facility]) Active Problems: COPD (chronic obstructive pulmonary disease) ([facility]) Type 1 diabetes mellitus with kidney complication (HCC) Hyperlipidemia Diabetic neuropathy associated with type 1 diabetes mellitus ([facility]) Assessment/Plan: Stable Small Right Temporal SDH (identified [...] AM EDT I have personally performed a zueb-by-uhdx diagnostic evaluation on this patient on date of service07/30/2024. History, labs, imaging studies, and electronic medical record have been reviewed by me. This note documented by the [x]house painting instructor []TONJA reflects my history, exam, and medical [...] Number Called: NA Name of Designated Family Grab Driver: Jose Deng and pt's sister Relationship: spouse Family Grab Driver Updated on the Following: Updated on the [...] T2-213/T2-213 A Date of Admit: 07/26/2024 LOS: 3 days Referring physician: Kena Heath DO Outpatient Hotel Security Officer: Christy Huerta Reason for Consult: Asked to [...] 4 - follows with Dr Christy Huerta ([facility]). - On review of available labs, Cr has been 2.4-2.8, last (04/26) Cr 2.4 eGFR 20, 24 hr qqwjltk=8343 mg. - Home med includes losartan 25 [...] 4 - follows with Dr Christy Huerta ([place]). On review of available labs, Cr has been 2.4-2.8, last (04/26) Cr 2.4 eGFR 20, 24 hr ebnxdmm=8385 mg. Home med includes losartan 25 mg [...] Urethral Catheter-Output (mL): 5 mL Urethral Catheter Klenwywm-kir-Krebdf (mL): 0 mL FIO2 needs: Patient Vitals [...] IRON, TIBC, FERRITIN No results found for: [id number], FOLATE Recent Labs 07/27/24 0530 07/27/24 1427 [...] studies and notes. Karyn Jones MD Pager [phone] [facility] [phone] D/w ICU * Jamey Muro OT - 07/29/2024 11:27 AM EDT Images from the original note were not included. OCCUPATIONAL THERAPY [facility] Name/MRN: Sandy Deng ([id number]) Date: 07/29/2024 Pt remains on strict bed rest. Will continue to follow. Jamey Muro OT * Jennifer Saldaña - 07/29/2024 9:25 AM EDT Images from the original note were not included. PHYSICAL THERAPY [facility] Name/MRN: Sandy Deng ([id number]) Date: 07/29/2024 Hold Note. Pt remains intubated [...] O2 baseline), DM, CKD 4, HTN, CAD, SC (PCI with stents in 2017). at bedside. Pt was admitted to [facility] due to confusion and hallucinations. Pt has had episodes of staring off into space per family. Was found to have a subdural hematoma. She reportedly had a fall 1 month ago from bed. states she hit her head on the nightstand. She is on Plavix and ASA for a stent placed 7 years ago. Pt tested positive for COVID on 07/24. Today at [facility] ICU she had worsening hypoxia and was placed on NIV but failed. Was ultimately intubated. Noted to be hypotensive and started on levophed. Pt was transferred to [facility] for higher level of care. On arrival [...] Infusions:fentaNYL, 25-200 mcg/hr, Last Rate: 125 mcg/hr (07/29/24 0724) norepinephrine, 2-100 mcg/min, Last Rate: 2 mcg/min (07/29/24 0636) PrismaSol BGK 4/2.5, 750 mL/hr, Last Rate: 750 mL/hr (07/29/24 030) PrismaSol BGK 4/2.5, 750 mL/hr, Last Rate: 750 mL/hr (07/29/24300) PrismaSol BGK 4/2.5, 750 mL/hr, Last Rate: 750 mL/hr (07/29/24299) propofol, 5-50 mcg/kg/min, Last Rate: 35 mcg/kg/min (07/29/24299) Objective: Last Vitals: BP MAP (!) 122/45 (07/28/24 0000) 67 (07/28/24 0000) Arterial BP MAP 146/57 (07/29/24 0700) 84 mmHg (07/29/24 07) Temp 36.1 C (97 F) (07/29/24 0400) Pulse 74 (07/29/24 0700) Resp 20 (07/29/24 07) SpO2 98 % (07/29/24 07) Weight 62 kg (136 lb 11 oz) (07/29/24 0500) BMI Body mass index is 22.06 kg/m . I/O: 07/28 07 - 07/29 0659 In: 2652.4 [I.V.:1533.4] Out: 2398 Ventilator: Resp [...] Normal [] Scar/Lesion/Mass Inspection of teeth/lips/gums Dentition: [][place] Teeth []Dentures Lips/Gums: [x]Intact []Lesion Present Mucosa: [x][place] [x]Moist []Dry Neck: External Appearance Overall Appearance: [...] within last 24 hours- BMP: Recent Labs 07/27/24211307/28/24 04007/28/24125607/28/24 18007/28/24234807/29/24 0557 NA 131* 131* 130* 131* 130* 131* K 3.6 4.5 4.5 4.2 4.6 5.2* CL 102 104 102 103 104 104 CO2 24 BUN 41* 34* 31* 30* 28* 28* CREATININE 2.18* 1.80* 1.50* 1.33* 1.26* 1.32* CALCIUM 7.3* 7.4* 7.3* 7.8* 7.4* 7.5* MG 1.9 2.2 2.7* -- -- -- PHOS -- 3.6 3.5 2.7 2.4* 3.2 LFTs: Recent Labs 07/26/24 1850 07/27/24 0507/27/24142607/28/24125607/28/24 18007/28/24 23407/29/24 0557 AST 40 28 -- 44 -- [...] Recent Labs 07/27/24 0530 07/27/24 0950 07/27/24 14207/27/24 1506 07/27/24211307/27/24222107/27/24 23307/28/24 0409 07/28/24 0414 07/28/24 0938 07/28/24 1257 [...] this interval not displayed. Procal: Recent Labs 07/26/24 185 PROCAL 2.48* CBC: Recent Labs 07/27/24 0530 [...] 0409 07/29/24 0558 PHART 7.398 7.401 7.502* IMV6RJK 41.9 38.6 32.6* PO2ART 100.1* 120.0* 110.0* MRX8KZZ 25.3* 23.4 25.0 O5GFQITA 30% Oxygen Vent Vent Lactic Acid: Recent Labs 07/26/24 185 LACTATE 0.9 INR: No results for input(s): INR in the last 72 hours. Cardiac Injury Profile: Recent Labs 07/26/24 18507/26/24 2156 07/27/24 0246 07/27/24 0530 CKTOTAL -- [...] and Plan: Principal Problem: SDH (subdural hematoma) ([facility]) Active Problems: COPD (chronic obstructive pulmonary disease) (HCC) Type 1 diabetes mellitus with kidney complication (HCC) Hyperlipidemia Diabetic neuropathy associated with type 1 diabetes mellitus ([facility]) Assessment/Plan: Stable Small Right Temporal SDH (identified [...] PM EDT I have personally performed a yirb-yf-zryk diagnostic evaluation on this patient on date of service07/29/2024. History, labs, imaging studies, and electronic medical record have been reviewed by me. This note documented by the [x]house painting instructor []TONJA reflects my history, exam, and medical [...] minutes so far today, excludingprocedures. * Cruzito Molina SHAKER REPAIRER - 07/29/2024 3:05 AM EDT 07/29/24 0258 [...] T2-213/T2-213 A Date of Admit: 07/26/2024 LOS: 2 days Referring physician: Kena Heath DO Outpatient Hotel Security Officer: Christy Huerta Reason for Consult: Asked to [...] 4 - follows with Dr Christy Huerta ([facility]). - On review of available labs, Cr has been 2.4-2.8, last (04/26) Cr 2.4 eGFR 20, 24 hr lzbvrcb=4738 mg. - Home med includes losartan 25 [...] 4 - follows with Dr Christy Huerta ([facility]). On review of available labs, Cr has been 2.4-2.8, last (04/26) Cr 2.4 eGFR 20, 24 hr ueclqdt=1475 mg. Home med includes losartan 25 mg [...] Urethral Catheter-Output (mL): 5 mL Urethral Catheter Dncqsley-dwy-Awkohd (mL): 0 mL FIO2 needs: Patient Vitals [...] 1850 07/26/24 2232 07/27/24 0530 07/27/24 0652 07/27/24 1622 [...] IRON, TIBC, FERRITIN No results found for: [id number], FOLATE Recent Labs 07/26/24 1850 07/27/24 0530 07/27/24 1427 07/27/24 2114 07/28/24 [...] PROTEINUA, KEYTONESU, RBCUA, WBCUA, CRYSTAL Recent Labs 07/26/24 195 NAUR 31 Diagnostic Studies: TTE: CXR: reviewed in PACS Personally reviewed MARS, labs, radiologic studies and notes. Karyn Jones MD Pager [phone] [facility] [phone] * Torito Mahajan - 07/28/2024 10:43 AM EDT NEUROCRITICAL CARE PROGRESS NOTE Patient Name: Sandy Deng Patient : 1960 Acct: [id number] Date of Admission: 07/26/2024 Room/Bed: T2-213/T2-213 A PCP: Bird Lujan Interval Events: - Placed on cEEG overnight. Read pending but no notification of seizures - Exam significantly improved Current Hospital Medications: Current Facility-Administered Medications: dexAMETHasone (Decadron) injection 6 mg, 6 mg, IntraVENous, q24h, Kena Heath DO, 6 mg at 07/27/24 180 dextrose 5 % infusion, 100 mL/hr, IntraVENous, [...] in 0.9 % sodium chloride 250 mL (Fke-Ftjehw-Ykhsb) (premix), 2-100 mcg/min, IntraVENous, Continuous, Simone Momin DO, Last Rate: 1.88 mL/hr at 07/28/24926, 2 mcg/min at 07/28/24926 ondansetron ODT (Zofran-ODT) disintegrating tablet 4 mg, [...] 2-100 mcg/min, Last Rate: 2 mcg/min (07/28/24 09) PrismaSol BGK 4/2.5, 750 mL/hr, Last Rate: 750 mL/hr (07/28/24 0554) PrismaSol BGK 4/2.5, 750 mL/hr, Last Rate: 750 mL/hr (07/28/24 0553) PrismaSol BGK 4/2.5, 750 mL/hr, Last Rate: 750 mL/hr (07/28/24 0552) propofol, 5-50 mcg/kg/min, Last Rate: 40 mcg/kg/min (07/28/24 1007) Vitals: Patient Vitals for the past 8 hrs: Temp Temp src Pulse Resp SpO2 Weight 07/28/24944 -- -- 71 20 98 % -- 07/28/2438 -- -- 72 20 98 % -- 07/28/24929 -- -- 75 20 100 % -- 07/28/24921 -- -- 69 20 100 % -- 07/28/24919 -- -- 68 20 100 % -- 07/28/2415 -- -- 68 20 100 % -- 07/28/24899 -- -- 73 20 100 % -- 07/28/2445 -- -- 64 20 100 % -- 07/28/24829 -- -- 68 20 100 % -- 07/28/2415 -- -- 68 20 95 % -- 07/28/24799 36.2 C (97.1 F) Temporal 71 20 100 % -- 07/28/2445 -- -- 69 20 99 % -- 07/28/24729 -- -- 70 20 97 % -- 07/28/2415 -- -- 70 20 97 % -- 07/28/24699 -- -- 70 20 98 % -- 07/28/2445 -- -- 74 20 99 % -- 07/28/2430 -- -- 70 20 97 % -- 07/28/2415 -- -- 71 20 97 % -- 07/28/24599 -- -- 71 20 98 % -- 07/28/2445 -- -- 72 20 96 % -- 07/28/2430 -- -- 73 20 97 % -- 07/28/2415 -- -- 75 20 96 % -- 07/28/240 -- -- 71 20 97 % 61.2 [...] 416 ms QTC Interval 456 ms P [place] 0 degrees QRS [place] 14 degrees T Wave [place] 0 degrees MS Interval 0 ms Basic metabolic panel Collection [...] 66 ALT 19 AST 28 BILITOT 0.3 @BRIEFLAB([facility]) ABGs:)No results for input(s): PH, PO2, PCO2, [...] participate in their own care). * Joycelyn E Benedicto, DO - 07/28/2024 6:22 AM EDT ICU Progress Note Name: Sandy Deng : 1960(63 y.o.) Date: 07/28/24 Team: MICU Attending: Dr. Jones Subjective: Hospital Summary: 63 year old female with a PMHx of COPD (3L O2 baseline), DM, CKD 4, HTN, CAD, SC (PCI with stents in 2017). at bedside. Pt was admitted to [facility] due to confusion and hallucinations. Pt has had episodes of staring off into space per family. Was found to have a subdural hematoma. She reportedly had a fall 1 month ago from bed. states she hit her head on the nightstand. She is on Plavix and ASA for a stent placed 7 years ago. Pt tested positive for COVID on 07/24. Today at [facility] ICU she had worsening hypoxia and was placed on NIV but failed. Was ultimately intubated. Noted to be hypotensive and started on levophed. Pt was transferred to [facility] for higher level of care. On arrival [...] (07/28/24 0552) propofol, 5-50 mcg/kg/min, Last Rate: 30 mcg/kg/min (07/28/24 0240) Objective: Last Vitals: BP MAP (!) 122/45 (07/28/24 0000) 67 (07/28/24 0000) Arterial BP MAP 136/50 (07/28/24 0600) 76 mmHg (07/28/24599) Temp 36.1 C (96.9 F) (07/28/24 0400) Pulse 71 (07/28/24 06) Resp 20 (07/28/24 06) SpO2 98 % (07/28/24599) Weight 61.2 kg (134 lb 14.7 oz) (07/28/24 0500) BMI Body mass index is 21.78 kg/m . I/O: 07/27 07 - 07/28 659 In: 2810.8 [I.V.:2421.8] Out: [...] Normal [] Scar/Lesion/Mass Inspection of teeth/lips/gums Dentition: [][place] Teeth []Dentures Lips/Gums: [x]Intact []Lesion Present Mucosa: [x][place] [x]Moist []Dry Neck: External Appearance Overall Appearance: [...] last 24 hours- BMP: Recent Labs 07/27/24 0507/27/24 1427 07/27/24211307/28/24 0409 NA 130* 131* 131* 131* K 4.3 3.6 3.6 4.5 CL 101 102 102 104 CO2 * BUN 66* 49* 41* 34* CREATININE 4.00* 2.81* 2.18* 1.80* CALCIUM 6.5* 7.5* 7.3* 7.4* MG 2.0 -- 1.9 2.2 PHOS 6.8* 4.6* -- 3.6 LFTs: Recent Labs 07/26/24184907/27/24 0507/27/24 142 AST 40 28 -- ALT 21 19 -- PROT 5.5* 4.9* -- ALBUMIN 2.9* 2.4* 2.4* BILITOT 0.5 0.3 -- ALKPHOS 68 66 -- Glucose: Recent Labs 07/26/24 18507/27/24 0150 07/27/24 0530 07/27/24 0950 07/27/24 1427 [...] this interval not displayed. Procal: Recent Labs 09/23/24 1850 PROCAL 2.48* CBC: Recent Labs 07/26/24 1850 07/26/24 2232 07/27/24 0530 07/27/24 0652 07/27/24 1622 [...] displayed. ABGs: Recent Labs 07/27/24 1424 07/27/24 1622 07/28/24 0409 PHART 7.286* 7.398 7.401 BBI2HYX 52.3* 41.9 38.6 PO2ART 115.1* 100.1* 120.0* SHN1DSS 24.4 25.3* 23.4 A1CHTCWG 30% Oxygen 30% Oxygen Vent Lactic Acid: Recent Labs 07/26/24 185 [...] and Plan: Principal Problem: SDH (subdural hematoma) ([facility]) Active Problems: COPD (chronic obstructive [...] physicians, excluding procedures. Associated attestation - Kena Heath, - 07/28/2024 2:24 PM EDT I have personally performed a orlz-hf-imme diagnostic evaluation on this patient on date of service07/28/2024. History, labs, imaging studies, and electronic medical record have been reviewed by me. This note documented by the [x]house painting instructor []TONJA reflects my history, exam, and medical [...] Torres RCP - 07/28/2024 4:53 AM EDT [facility] Respiratory Care Department Progress Note Spontaneous [...] 1622 07/28/24 0409 PHART 7.286* 7.398 7.401 NIM3JGM 52.3* 41.9 38.6 PO2ART 115.1* 100.1* 120.0* LSE8AAD 24.4 25.3* 23.4 J6ETVQYR 30% Oxygen 30% Oxygen Vent Does this [...] 12- 24 hours post-extubation. [place] Sahni MA [facility]MA[facility]GER [place] * Delmar Ling OT - 07/27/2024 8:22 AM EDT Images from the original note were not included. OCCUPATIONAL THERAPY [facility] Name/MRN: Sandy Deng ([id number]) Date: 07/27/2024 Intubated, sedated, on bed rest. Will follow. Delmar Ling OT * Jennifer Saldaña - 07/27/2024 7:30 AM EDT Images from the original note were not included. PHYSICAL THERAPY [facility] Name/MRN: Sandy Deng ([id number]) Date: 07/27/2024 Screen Note. Pt remains intubated [...] 2017). at bedside. Pt was admitted to [facility] due toconfusion and hallucinations. Pt has had episodes of staring off into space per family. Was found to have a subdural hematoma. She reportedly had a fall 1 month ago from bed. states she hit her head on the nightstand. She is on Plavix and ASA for a stent placed 7 years ago. Pt tested positive for COVID on 07/24. Today at [facility] ICU she had worsening hypoxia and was placed on NIV but failed. Was ultimately intubated. Noted to be hypotensive and started on levophed. Pt was transferred to [facility] for higher level of care. On arrival [...] norepinephrine, 2-100 mcg/min, Last Rate: 2 mcg/min (07/27/24 0706) PrismaSol BGK 2/3.5, 750 mL/hr, Last Rate: 750 mL/hr (07/27/24238) PrismaSol BGK 2/3.5, 750 mL/hr, Last Rate: 750 mL/hr (07/27/24238) PrismaSol BGK 2/3.5, 750 mL/hr, Last Rate: 750 mL/hr (07/27/24238) propofol, 5-50 mcg/kg/min, Last Rate: 20 mcg/kg/min (07/27/24 023) sodium bicarbonate 150 mEq in sterile water 1,000 mL infusion, 75 mL/hr, Last Rate: 75 mL/hr (07/27/24 0134) vasopressin, 0.01-0.03 Units/min, Last Rate: 0.03 Units/min (07/26/24 2245) Objective: Last Vitals: BP MAP (!) 135/39 (07/27/24 0000) 64 (07/27/24 0000) Arterial BP MAP 174/58 (07/27/24 0630) 96 mmHg (07/27/24629) Temp 37.3 C (99.1 F) (07/27/24 0400) Pulse 56 (07/27/24 06) Resp 14 (07/27/24629) SpO2 100 % (07/27/24629) Weight 48 kg (105 lb 13.1 oz) (07/26/24 1723) BMI There is no height or weight on file to calculate BMI. I/O: 07/26 0700 - 07/27 659 In: 2531 [I.V.:2531] Out: 345 [Urine:84] Ventilator: Resp Rate (Set): [...] Normal [] Scar/Lesion/Mass Inspection of teeth/lips/gums Dentition: [][place] Teeth []Dentures Lips/Gums: [x]Intact []Lesion Present Mucosa: [x][place] [x]Moist []Dry Neck: External Appearance Overall Appearance: [...] 0.3 ALKPHOS 68 66 Glucose: Recent Labs 07/26/24184907/27/24 0150 07/27/24 0517 07/27/24 0530 GLUCOSE 252* -- -- 254* POCGLU -- 320* 283* -- Procal: Recent Labs 07/26/24 185 PROCAL 2.48* CBC: Recent Labs 07/26/24184907/26/24223107/27/24 0530 07/27/24 0652 WBC 18.7* -- 14.5* -- HGB 10.1* 8.1 8.8* 9.9 HCT 31.3* -- 27.2* -- PLT 244 -- 186 -- MCV 88.7 -- 88.0 -- RDW 15.5* -- 15.3* -- ABGs: Recent Labs 07/26/24223107/27/24 0652 PHART 7.166* 7.214* HWL8XGT 30.4* 53.5* PO2ART 95.4 108.9* EJD9YCD 10.7* 21.1 H3FBPWJC Vent Vent Lactic Acid: Recent Labs 07/26/241849 LACTATE 0.9 INR: No results for input(s): INR in the last 72 hours. Cardiac Injury Profile: Recent Labs 07/26/24184907/26/24215507/27/24 0246 TROPONINI 0.013 0.014 0.017 Labs in [...] PM EDT I have personally performed a kddt-un-aiki diagnostic evaluation on this patient on date of service07/27/2024. History, labs, imaging studies, and electronic medical record have been reviewed by me. This note documented by the [x]house painting instructor []TONJA reflects my history, exam, and medical [...] CKD, on ASA/Plavix who initially presented to [facility] on 07/23 with acute respiratory distress and acutedelirium. She was found to be hypoxic and hypercarbic, and COVID positive. She continued to be delirious and did not tolerate NIV, and today required intubation. A CT head was done to evaluate her altered mental status, and she was found to have a small acute right sided SDH vs. epidural hematoma. For this reason, [facility] consulted for further neurologic management and she [...] PLAN: 63 y.o. female s/p presented to [facility] ED with confusion since the prior night [...] per MICU team Discussed with Dr. Sheron Mayes DO 07/27/24 6:26 AM Associated attestation - Michael [...] SDH -patient admitted yesterday after transfer from [facility] with hypoxic respiratory failure, known COPD hx, [...] minutes (including chart/data review/analysis, care coordination, and hdkl-ep-zowh encounter), and was spent discussing/counseling the patient/family [...] appropriate exam and evaluation Michael Holbrook MD, FACS Trauma, Surgical Critical Care, & Acute Care Surgery Department of Surgery [facility] Pager: [phone] ~~~~~~~~~~~~~~~~~~~~~~~~~~~~~~~~~~~~~~~~~~~~~~~~~~~~~~~~~~~~~ This note may have been dictated using [employer] Medical Practice Edition 2.6 and/or [employer] Voice Recognition Feature. The document was proofread; however, unrecognized voice recognition casting repairer errors may be present. * Joni Monson [...] epidural hematoma and patient was transferred to [facility]. She was placed on levophed. She is [...] call with any questions. Joni Monson MD [facility] ([facility]) Office phone: [phone] Office fax: [phone] 07/27/2024 documented in this [facility]10-08-2024 Miscellaneous Notes* Care Coordination - Otilia Arellano RN - 08/10/2024 11:38 AM EDT Active with portfolio accountant brenna ext [phone] per , tcc called left VM regarding discharge plan. [facility] HD [facility] at bedside aware and agree to plan .. * Care Coordination - Unknown Case Management - 08/10/2024 10:00 AM EDT Patient Choice Patient Name: SANDY DENG Date of : 1960 All Providers Sent Referral Name: [facility] Address: [address] [place] [address] Name: [facility] Phone: [phone] Address: [facility] [place] [address] Name: [facility] Phone: [phone] Address: [address] [place] [address] Name: [facility] Address: [address] [place] [address] Name: [facility] Address: [address] [place] [address] Name: [facility] Phone: [phone] Address: [address] [place] [id number] * Care Coordination - SAPNA Richards - 08/10/2024 9:59 AM EDT Transportation set via cot through [employer] for today 08-10-24 @2pm to [facility]. TCC, RN, [employer], facility, Pt, and Pt's Jose notified. * Care Coordination - Kimberlee Valdovinos - 08/10/2024 8:14 AM EDT Discharge med list transmitted to REHAB- [facility] via [facility] per TCC request. * Care Coordination - Otilia Arellano RN - 08/10/2024 6:15 AM EDT [facility] . [...] she has been to HD class at [facility] . And that is [facility] pt center [facility]. Confirmed auth started with [facility] . HD . Ongoing for now , [...] Need accepting rehab center- tcc messaged to [facility] and [facility] and [facility] . PT/OT [...] out pt HD , will try for [facility], did not prefer days anything will work [...] 8:29 AM EDT Referral placed to [facility] via [facility] per TCC request. Referral placed to [facility] via [facility] per TCC request. Await review and response regarding ability to accept. TCC notified. * Care Coordination - Otilia Arellano RN - 08/06/2024 6:50 AM EDT Transfer from T2, complex discharge, need HD, recent covid, per PT/OT need rehab, live in [place], ready for discharge soon, not today , getting transfused, new HD, MMO list and new referrals sent toSNF with IN HOUSE HD and IPR within 50 miles not many options due to the constraints of needs and in surance, will need acceptance, auth and HD auth . At this time foc was [facility] NOT an option as NO HD beds available and not set up incommunity to transport to and too far as she lives in [facility], will get lists to bedside and [...] to start facility auth if able 08/05. BHARAT was told by Sean no dialysis bed available per secure chat we are back to not having a dialysis bed available. you should likely make other plans for her. CM explained by [facility] liaison, not willing to start auth until HD bed available. CM notes that [facility] nor [facility] have in house HD. Patient was hoping to have IPRwith in house HD. CM will discuss with patient, as able, for other options than IPR at [facility]. [facility] and [facility] are locations not yet offered/confirmed if they have HD beds available. Discharge Plan: IPR vs SNF. Awaiting additional facility choices/discussion, clinical stability and medical clearance. Will continue to follow with [facility]. Length of Stay (Days): 11 GMLOS: 5.1 [...] Re-introduced myself and role. Discussed discharge planning. [facility] does not have inpatient diaylsis. Patient would prefer to participate in IPR at [facility] where IPHD is available. CM updated facilities. Discharge Plan: [facility]. Awaiting OT eval, facility precert, clinical stability and medical clearance. Will continue to follow with [facility]. Length of Stay (Days): 9 GMLOS: 5.1 * Care Coordination - Shilo Bose - 08/03/2024 2:05 PM EDT Referral placed to Rehab - [facility] per [facility] request. Await review and response [...] agreeable to rehab at discharge. CM tasked TELETYPE TELEGRAPHER to send referrals to [facility] and [facility] for IPR and iHD. Discharge Plan: [facility] and [facility]. Awaiting facility acceptance, facility precert, clinical stability and medical clearance. Will continue to follow with [facility]. Length of Stay (Days): 8 GMLOS: 5.1 [...] Yes, addressed in today's progress note Anticipated [place] Medications (ICU initiated) or Dose Changes and [...] 24 hours of ICU transfer, page ICU [facility] for clarifications. * Care Coordination - [...] No GMLOS Documented * Care Plan - Trumna Quezada RN - 08/01/2024 6:33 PM EDT [...] Progress Note Chart reviewed. Patient admitted to [facility] ICU for SDH 07/26/2024. 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 Patient direct admit from [facility] to [facility] ICU for SDH 07/26/2024. Consults to IP CONSULT TO NEUROSURGERY IP CONSULT TO NEUROLOGY IP CONSULT TO NEPHROLOGY Initial Assessment: IA completed with chart review. Patient transferred from [facility]. NOK listed. Patient has insurance, prescription coverage and active with PCP. CM called PCP office spoke with BO Walker to confirm patient active. Discharge Planning/Barrier: Intubated/sedated. Art line. TLC CVC. HDC. CRRT. N/OGT. NPO. Johnson. IV qtt - levophed, vasopressin PT/OT/MANAGER [place] pending. CM requests [facility] to follow peripher[facility]. Discharge Plan: TBD. Awaiting clinical stability and medical clearance. Will continue to follow with [facility]. Shaniqua Parker RN documented in this [facility]10-08-2024 [facility] 08-09-2024 Hospital Discharge instructions* Discharge [...] Discharging Nurse: Jim SORIANO Discharging Hospital Unit/Room#: W3339/W3339 B Discharging Unit Phone Number: [phone] Emergency Contact: Extended Emergency Contact Information Primary Emergency Contact: BinBobbi Mobile Relation: Daughter Preferred language: Cymraes Shovel Logger needed? No Secondary Emergency Contact: Jose Deng Mobile Relation: Spouse Preferred language: Cymraes Shovel Logger needed? No Past Surgical History: Past Surgical [...] assistance Toileting Minimal assistance Feeding Minimal assistance Measurement Operator Total assistance Med Delivery yes Wound [...] select all that are sent with patient): matias SORIANO SIGNATURE: MANAGEMENT/SOCIAL WORK SECTION Inpatient Status Date: 07/26/24 Discharging to Facility/ Agency Name: [facility] Address: [address] Fax: Dialysis Facility (if applicable) Name: [facility] in [place] is preference at out pt if needed Address: Dialysis Schedule: Phone: Fax: Machine Feed Operator/Ice Bag Assembler signature: at1:31 PM PHYSICIAN SECTION Name: Sandy [...] to a nursing facility directly from an [facility] or a unit of a [facility] that is not operated by or licensed by [facility] under section 5119.14 or 5160-3-15.1 5 [...] in H&P PHYSICIAN SIGNATURE: documented in this [facility]10-01-2024 NoteRef[facility] per [facility] request. Await review and response regarding ability to accept. [facility] notified. [facility]09-26-2024 [facility]09-26-2024 Procedure note* Armen Diaz MD PhD - 07/29/2024 12:43 PM EDTAssociated Order(s): EEG CONTINUOUS MONITORING Images from the original note were not included. [facility] [address] [place] [address] CONTINUOUS LONG-TERM VIDEO EEG MONITORING REPORT Patient Name: Sandy Deng : 1960 Date of Study: 07/29/2024 Duration Recorded: 14:59:56 EEG#: [id number] RAW FINISH MILL OPERATOR: LIBRA Peters CLTM PROVIDER REQUESTING STUDY: Dr. Mahajan REASON FOR EXAM: Evaluate for epileptiform activity DIAGNOSIS TAG: Subdural Hemorrhage (SDH) HISTORY: Sandy Deng is a 63 y.o. female with history of COPD (3L O2 baseline), DM, CKD 4, HTN, CAD (PCI with stents in 2017). at bedside. Pt was admitted to [facility] due to confusion and hallucinations. Pt has had episodes of staring off into space per family. Was found to have a subdural hematoma. She reportedly had a fall 1 month ago from bed. states she hit her head on the nightstand. She is on Plavix and ASA for a stent placed 7 years ago. Pt tested positive for COVIDon 07/24. Today at [facility] ICU she had worsening hypoxia and was placed on NIV but failed. Was ultimately intubated. Noted to be hypotensive and started on levophed. Pt was transferred to [facility] for higher level of care. On arrival [...] q24h Kena Heath DO 6 mg at 07/28/24 1758 dextrose [...] mL IVPB 1,000 mg IntraVENous q12h Kena Heath, DO Stopped at 07/29/24 0233 mupirocin (Bactroban) 2 % ointment 1 Application 1 Application Nasal BID Clara Mayes, DO 1 Application at 07/29/24 0811 naloxone (Narcan) injection 0.4 mg 0.4 mg IntraVENous q5 min PRN Colin Peoples MD norepinephrine (Levophed) infusion 16 mg in 0.9 % sodium chloride 250 mL (Tzi-Kzfajt-Phsgw) (premix) 2-100 mcg/min IntraVENous Continuous Saif-Mario Albertoeli Sanchezag, DO 1.88 mL/hr at 07/29/24 1222 2 mcg/min at07/29/24 1222 ondansetron ODT (Zofran-ODT) disintegrating tablet 4 mg 4 mg Oral q8h PRN Clara Mayes, DO Or ondansetron (Zofran) injection 4 mg 4 mg IntraVENous q6h PRN Clara Mayes, DO pantoprazole (ProtoNix) 40 mg in sodium chloride (PF) 0.9 % 10 mL injection 40 mg IntraVENous BID Clara Mayes, DO 40 mg at 07/29/24 0407 polyethylene glycol (PEG) 3350 (Miralax) packet 17 g 17 g Oral Daily PRN Clara Arguellesress, DO PrismaSol BGK 4/2.5 CRRT solution 750 [...] (Diprivan) infusion 5-50 mcg/kg/min IntraVENous Continuous Clara Mayes, DO 7.2 mL/hrat 07/29/24 1120 25 mcg/kg/min at 07/29/24 1120 remdesivir (Veklury) 100 mg in sodium chloride 0.9 % 250 mL IVPB 100 mg IntraVENous q24h Kena Heath DO Stopped at 07/28/242027 sodium chloride 0.9 % bolus 30 mL 30 mL IntraVENous PRN Kena Heath, sodium chloride 0.9 % infusion 75 mL/hr IntraVENous PRN Clara Mayes, TECHNICAL ASPECTS: This continuous scalp EEG study with video was carried out at [facility]. Scalp electrodeswere positioned in person by an cardiovascular radiologic technologist, following patient education, according to the 10-20 International system of electrode placement and maintained for integrity and quality of the recording. EEG data with video was recorded continuously and digitally stored. The cardiovascular radiologic technologist reviewed all automated detections and manual [...] delta-theta range (0.5- 6.5 Hz, 20-55 uV) xopqckdur-ha-wkvshoteqkngqw slowing was seen unresponsive to stimulation. At times, intermixed generalized periodic discharges with triphasic morphology and crerxhoo-xn-yjltdiwzu phase delay are observed(0.5-1.5 Hz, 70-120 uV). 12:25:37 -Continuous slowing, generalized + triphasic waves (Referential to average, LFF=1Hz, HFF=30Hz, Sens=5 uV/mm) INTERICTAL EPILEPTIFORM ACTIVITY: No epileptiform activity was seen. ICTAL ACTIVITY: No ictal activity was seen. NON-EPILEPTIC EVENTS: None ACTIVATION PROCEDURES: Photic stimulation was not performed. Hyperventilation was not performed. IMPRESSION AND ACTIONS TAKEN: This continuous EEG with video is abnormal. Continuous diffuse rwpjadww-mv-btjnjx slowing is seen with intermixed triphasic waves. [...] original note were not included. [facility] [address] [place] [id number] CONTINUOUS LONG-TERM VIDEO EEG MONITORING REPORT Patient Name: Sandy Deng : 1960 Date of Study: 07/28/2024 Duration Recorded: 23:48:31 EEG#: [id number] RAW FINISH MILL OPERATOR: LIBRA Peters CLTM PROVIDER REQUESTING STUDY: Dr. Mahajan REASON FOR EXAM: Evaluate for epileptiform activity DIAGNOSIS TAG: Subdural Hemorrhage (SDH) HISTORY: Sandy Deng is a 63 y.o. female with history of COPD (3L O2 baseline), DM, CKD 4, HTN, CAD (PCI with stents in 2017). at bedside. Pt was admitted to [facility] due to confusion and hallucinations. Pt has had episodes of staring off into space per family. Was found to have a subdural hematoma. She reportedly had a fall 1 month ago from bed. states she hit her head on the nightstand. She is on Plavix and ASA for a stent placed 7 years ago. Pt tested positive for COVIDon 07/24. Today at [place] ICU she had worsening hypoxia and was placed on NIV but failed. Was ultimately intubated. Noted to be hypotensive and started on levophed. Pt was transferred to [facility] for higher level of care. On arrival [...] Nightly Saroj Knox MD 5 Units at 07/27/24 2040 insulin regular (HumuLIN R,NovoLIN R) injection 0-18 [...] in 0.9 % sodium chloride 250 mL (Aqa-Vzfsqv-Gpnqr) (premix) 2-100 mcg/min IntraVENous Continuous Simone Momin DO 1.88 mL/hr at 07/28/24 1151 2 [...] g 17 g Oral Daily PRN Clara Mayes, DO PrismaSol BGK 4/2.5 CRRT solution 750 [...] study with video was carried out at [facility]. Scalp electrodeswere positioned in person by an cardiovascular radiologic technologist, following patient education, according to the 10-20 International system of electrode placement and maintained for integrity and quality of the recording. EEG data with video was recorded continuously and digitally stored. The cardiovascular radiologic technologist reviewed all automated detections and manual [...] delta-theta range (0.5- 6.5 Hz, 20-55 uV) wsrdedyer-qm-nlblavrpscvzyu slowing was seen unresponsive to stimulation. 12:04:28 -Continuous slowing, generalized (Referential to average, LFF=1Hz, HFF=30Hz, Sens=5 uV/mm) INTERICTAL EPILEPTIFORM ACTIVITY: No epileptiform activity was seen. ICTAL ACTIVITY: No ictal activity was seen. NON-EPILEPTIC EVENTS: None ACTIVATION PROCEDURES: Photic stimulation was not performed. Hyperventilation was not performed. IMPRESSION AND ACTIONS TAKEN: This continuous EEG with video is abnormal. Continuous diffuse usxabbsh-kb-rzzezd slowing is seen unresponsive to stimulation. No interictal epileptiform activity nor seizures are observed. Compared with the previous day of recording, a cyclic alternating pattern of encephalopathy (CAPE) is no longer observed. These findings remain indicative of a potentially worsening jnksrtfi-ge-yajnxj global encephalopathy nonspecific as to etiology. Jasmeet Arevalo, PhD Clinical Neurophysiologist Armen Diaz MD PhD Epilepsy Attending * Armen Diaz MD PhD - 07/27/2024 1:43 PM EDTAssociated Order(s): EEG CONTINUOUS MONITORING Images from the original note were not included. [facility] [address] [place] [id number] CONTINUOUS LONG-TERM VIDEO EEG MONITORING REPORT Patient Name: Sandy Deng : 1960 Date of Study: 07/27/2024 Duration Recorded: 10:39:13 EEG#: [id number] RAW FINISH MILL OPERATOR: LIBRA Peters CLTM PROVIDER REQUESTING STUDY: Dr. Mahajan REASON FOR EXAM: Evaluate for epileptiform activity DIAGNOSIS TAG: Subdural Hemorrhage (SDH) HISTORY: Sandy Deng is a 63 y.o. female with history of COPD (3L O2 baseline), DM, CKD 4, HTN, CAD (PCI with stents in 2017). at bedside. Pt was admitted to [facility] due to confusion and hallucinations. Pt has had episodes of staring off into space per family. Was found to have a subdural hematoma. She reportedly had a fall 1 month ago from bed. states she hit her head on the nightstand. She is on Plavix and ASA for a stent placed 7 years ago. Pt tested positive for COVIDon 07/24. Today at [facility] ICU she had worsening hypoxia and was placed on NIV but failed. Was ultimately intubated. Noted to be hypotensive and started on levophed. Pt was transferred to [facility] for higher level of care. On arrival [...] q24h Kena Heath DO 6 mg at 07/26/242026 dextrose 5 % infusion 100 mL/hr IntraVENous [...] in 0.9 % sodium chloride 250 mL (Qjf-Gnwizg-Vbcdt) (premix) 2-100 mcg/min IntraVENous Continuous Simone Momin DO 4.69 mL/hr at 07/27/24 1238 5 mcg/min at07/27/24 1238 ondansetron ODT (Zofran-ODT) disintegrating tablet 4 mg 4 mg Oral q8h PRN Clara Mayes DO Or ondansetron (Zofran) injection 4 mg 4 mg IntraVENous q6h PRN Clara Mayes DO pantoprazole (ProtoNix) 40 mg in sodium chloride (PF) 0.9 % 10 mL injection 40 mg IntraVENous BID Clara Mayes DO 40 mg at 07/27/24 0524 polyethylene [...] (Diprivan) infusion 5-50 mcg/kg/min IntraVENous Continuous Clara Mayes, DO 4.32 mL/hr at 07/27/24 1109 15 mcg/kg/min at 07/27/24 1109 remdesivir (Veklury) 100 mg in sodium chloride 0.9 % 250 mL IVPB 100 mg IntraVENous q24h Kena Heath, sodium bicarbonate 150 mEq in sterile water 1,000 mL infusion 75 mL/hr IntraVENous Continuous Saroj Knox MD 75 mL/hr at 07/27/24 0732 75 mL/hr at 07/27/24 0732 sodium chloride 0.9 % bolus 30 mL 30 mL IntraVENous PRN Kena Heath, sodium chloride 0.9 % infusion 75 mL/hr IntraVENous PRN Clara Mayes DO TECHNICAL ASPECTS: This continuous scalp EEG study with video was carried out at [facility]. Scalp electrodeswere positioned in person by an cardiovascular radiologic technologist, following patient education, according to the 10-20 International system of electrode placement and maintained for integrity and quality of the recording. EEG data with video was recorded continuously and digitally stored. The cardiovascular radiologic technologist reviewed all automated detections and manual [...] upper axial body and head, with subtle tjoe-jhl-xnxpa head movements at a frequency of 4 [...] abnormal states. State 1is characterized by continuous mgzreyja-rx-etsnqv diffuse slowing. State 2 features lower amplitudeand [...] upper axial body and head, with subtle eozz-sac-plzzv head movements. This activity ended with a transition to CAPE State 2. The findings are supportive of a igypgmky-uk-qtwgqc global encephalopahy non- specific as to etiology. [...] documented as signed by this procedure note Whipper: Dr. Knox The attending physician was physically [...] documented as signed by this procedure note Whipper: Dr. Concepcion The attending physician was physically present while the proceduralist performed cantrell/critical components of the procedure. Attending: Dr. Concepcion Associated attestation - Mynor Concepcion DO - 07/27/2024 12:52 AM EDT I have reviewed and agree with the resident/fellow/TONJA note I was physically present for cantrell elements of the procedure Complications during procedure: None documented in this encounterSBucyrus Community [id number] [facility] 07-28-2024 Consult note* Shanti García RD - 07/28/2024 10:42 AM EDTAssociated Order(s): IP [...] loss Fluid Accumulation: No significant fluid accumulation Academic Department Chair Strength: Not Performed Nutrition Assessment: Pt is a 63-year-old female with multiple medical co-morbidities including Type I DM (on insulin pump), COPD on 4L home O2, CKD4, on ASA/Plavix who initially presented to [facility] on 07/23 withacute respiratory distress and acute delirium. 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 She was found to be hypoxic and hypercarbic, and COVID positive. She continued to be delirious and did not tolerate NIV, and required intubation 07/27/24. A CT head was done to evaluate her altered mental status, and she was found to have a small acute right sided SDH vs. epidural hematoma. For this reason, [facility] consulted for further neurologic management and she [...] On: Kcal/kg Weight Used for Energy Requirements: [place] Weight for Energy Calculation (kg): 59 kg Total Energy Requirements (kcals/day): 25-30 kcals/kg = 9535-9002 kcals/day Weight Used for Protein Requirements: [place] Weight in Kg Used for Protein Requirements: [...] lb 13.1 oz) Weight Source: Not Specified [place] Body Weight (lbs) (Calculated): 130 lbs [place] Body Weight (Kg) (Calculated): 59 kg % [place] Body Weight (Calculated): 81.4 % BMI (kg/m2) (Calculated): 17.1 BMI Categories: Normal Weight (BMI 18.5-24.9) Wt Readings from Last 10 Encounters: 07/28/24 61.2 kg (134 lb 14.7 oz) LABS: Recent Labs 07/27/24 1427 07/27/24 2114 07/28/24 0409 07/28/24 1257 NA 131* 131* 131* 130* K 3.6 3.6 4.5 4.5 CL 102 102 104 102 CO2 BUN 49* 41* 34* 31* CREATININE 2.81* [...] soon to determine Shanti García RD,LD,CNSC Contact: *[phone] or [employer] Chat * Torito Keyshawn - 07/27/2024 2:11 PM EDTAssociated Order(s): IP CONSULT TO NEUROLOGY NEUROCRITICAL CARE CONSULT NOTE Patient Name: Sandy Deng Patient : 1960 Acct: [id number] Date of Admission: 07/26/2024 Room/Bed: T2-213/T2-213 A PCP: Bird Lujan Chief Complaint: encephalopathy [...] DO, Last Rate: 7.5 mL/hr at 07/27/24 0829, 75 mcg/hr at 07/27/24 0829 glucagon (human [...] in 0.9 % sodium chloride 250 mL (Fsv-Bnroid-Andgd) (premix), 2-100 mcg/min, IntraVENous, Continuous, Simone Momin [...] MD, Last Rate: 750 mL/hr at 07/27/24 09, 750 mL/hr at 07/27/24933 propofol (Diprivan) infusion, 5-50 mcg/kg/min, IntraVENous, Continuous, [...] Knox MD, Last Rate: 75 mL/hr at 07/27/24 0732, 75 mL/hr at 07/27/24731 sodium chloride 0.9 [...] 2/3.5, 750 mL/hr, Last Rate: 750 mL/hr (07/27/24 0934) propofol, 5-50 mcg/kg/min, Last Rate: 15 mcg/kg/min (07/27/24 1109) sodium bicarbonate 150 mEq in sterile water 1,000 mL infusion, 75 mL/hr, Last Rate: 75 mL/hr (07/27/24 0732) Allergies: Patient has no allergy information on [...] 448 ms QTC Interval 459 ms P Sarepta 82 degrees QRS Sarepta -71 degrees T Wave Sarepta 88 degrees MS Interval 98 ms Procalcitonin Test Collection Time: [...] 66 ALT 19 AST 28 BILITOT 0.3 @BRIEFLAB([facility]) ABGs:)No results for input(s): PH, PO2, PCO2, [...] consulted. Per report, patient initially presented to [facility] with respiratory distress and delirium.She was [...] 448 ms QTC Interval 459 ms P Sarepta 82 degrees QRS Sarepta -71 degrees T Wave Sarepta 88 degrees MS Interval 98 ms Procalcitonin Test Collection Time: [...] sign-off at this time Romero Wright MD [facility] I spent 60 minutes of my independent time evaluating the patient, reviewing the medical record, andcounseling/coordinating care regarding her acute SDH. * Karyn Jones MD - 07/27/2024 10:12 AM EDTAssociated Order(s): IP CONSULT TO NEPHROLOGY Images from the original note were not included. Initial Nephrology Consult Note Patient: Sandy Deng Room number: T2-213/T2-213 A Date of Admit: 07/26/2024 LOS: 1 days Referring physician: Kena Heath DO Outpatient Hotel Security Officer: Christy Huerta Reason for Consult: Asked to [...] (04/26) Cr 2.4 eGFR 20, 24 hr nfajuvb=3148 mg. - Home med includes losartan 25 [...] epidural hematoma and patient was transferred to [facility]. She was placed on levophed. Initial labs [...] 4 - follows with Dr Christy Huerta ([facility]). On review of available labs, Cr has been 2.4-2.8, last (04/26) Cr 2.4 eGFR 20, 24 hr guxhjyn=0012 mg. Home med includes losartan 25 mg [...] regular, 1-50 Units/hr, Last Rate: 2 Units/hr (07/27/24956) norepinephrine, 2-100 mcg/min, Last Rate: 7 mcg/min (07/27/24827) PrismaSol BGK 2/3.5, 750 mL/hr, Last Rate: 750 mL/hr (07/27/24934) PrismaSol BGK 2/3.5, 750 mL/hr, Last Rate: 750 mL/hr (07/27/24934) PrismaSol BGK 2/3.5, 750 mL/hr, Last Rate: 750 mL/hr (07/27/24933) propofol, 5-50 mcg/kg/min, Last Rate: 15 mcg/kg/min (07/27/24828) sodium bicarbonate 150 mEq in sterile water 1,000 mL infusion, 75 mL/hr, Last Rate: 75 mL/hr (07/27/24731) Allergies: Not on File Review of Systems: [...] Labs 07/26/24184907/26/24 2232 07/27/24 0530 07/27/24 0652 WBC 18.7* -- 14.5* -- HGB 10.1* 8.1 8.8* 9.9 HCT 31.3* -- 27.2* -- MCV 88.7 -- 88.0 -- PLT 244 -- 186 -- No results found for: IRON, TIBC, FERRITIN No results found for: UCGIPXLU27, FOLATE Recent Labs 07/26/24184907/27/24 0530 NA 125* 130* [...] studies and notes. Karyn Jones MD Pager [phone] [facility] [phone] Greater than 65 min of time spent on prepping chart, reviewing outpt pcp/consumer services consultant notes/cumulative labs, imaging, FTF time, interpretation of results, devt of POC, documentation and coordination ofcare * Simone Momin, DO - 07/26/2024 5:59 PM EDT Images [...] 2017). at bedside. Pt was admitted to [facility] due to confusion and hallucinations. Pt has had episodes of staring off into space per family. Was found to have a subdural hematoma. She reportedly had a fall 1 month ago from bed. states she hit her head on the nightstand. She is on Plavix and ASA for a stent placed 7 years ago. Pt tested positive for COVID on 07/24. Today at [facility] ICU she had worsening hypoxia and was placed on NIV but failed. Was ultimately intubated. Noted to be hypotensive and started on levophed. Pt was transferred to [facility] for higher level of care. On arrival [...] Normal [] Scar/Lesion/Mass Inspection of teeth/lips/gums Dentition: [x][place] Teeth []Dentures Lips/Gums: [x]Intact []Lesion Present Mucosa: [x][place] [x]Moist []Dry Neck: External Appearance Overall Appearance: [...] 88.7 RDW 15.5* Lactic Acid: Recent Labs 07/26/241849 LACTATE 0.9 Cardiac Injury Profile: Recent Labs [...] AM EDT I have personally performed a bpvo-yg-paqs diagnostic evaluation on this patient on date of uuyydcv57/23/24. History, labs, imaging studies, and electronic medical record have been reviewed by me. This note documented by the [x]house painting instructor []TONJA reflects my history, exam, and medical decision making. I have reviewed and agree with the care plan. Changes were made in the orders as necessary. ROS documentation was reviewed and negative unless otherwise stated in HPI. Assessment: Acute hypoxic, hypercapnic respiratory failure COVID19 pneumonia Acute metabolic encephalopathy R SDH, small/subacute Severe NAGMA UMA/CKD Plan: Continue [facility] vent support Add COVID19 rx incl decadron, remdes -->confirm COVID19 result from [facility] Follow-up micro studies and adjust abx Concern [...] failure is 35 minutes. documented in this [facility]09-24-2024 [facility] 07-27-2024 NoteAcceptable Specimen? Acceptable Specimen(Evaluation not needed) Gram Stain 3+ White Blood Cells No Epithelial cells 3+ Gram positive cocci 1+ Gram negative rodsWSumma Health Akron CampusComment on above:Performed By: #### M100.2400, M100.2000 ####[facility] [address] [place], [phone] [facility] 07-26-2024 [facility]09-23-2024 [facility] 07-26-2024 History and physical note* Deacon Mazariegos MD - 07/26/2024 4:37 PM EDT Images from the original note were not included. [facility] SICU H&P 07/26/2024 6:01 PM Attending: Dr. Holbrook Chief Complaint: Brain Bleed History of Present Illness: 63 y.o. female presented to [facility] ED with confusion since the prior night [...] ADDENDUM I personally supervised the resident or IMAGING AIDE/PAEliaC in the evaluation and development of a [...] CKD, on ASA/Plavix who initially presented to [facility] on 07/23 (3 days ago) with [...] sided SDH vs.epidural hematoma. For this reason, [facility] consulted for further neurologic management and she was transferred to SICU. I spoke to the patient's , son, and sister who were present at the patient's bedside. They report that leading up to her visit to [facility] ED she was acting delirious and frequently getting outof bed in the middle of night. She may have hit her head during one of these episodes, however she did not have a fall or witnessed head trauma during her brief hospitalization at [facility]. I reviewed her CT head from [facility] at 0100 this AM (07/26), with a repeat CT head around 1200. These demonstrated a small (3mm) acute SDH vs epidural hematoma in the posterior right temporallobe, which decreased in size to 2 mm on repeat [address] head. On arrival to T2, she is on Levophed to maintain MAP [...] MD Division of Trauma Department of Surgery [facility] documented in this [facility]09-23-2024 [facility] - Reported* ChiefComplaintFreeTextNoteForm_: * Kidney transplant surgical evaluation for potential active candidacy on kidney transplant list [id number] [facility] [address] Work Phone: Evaluation note* Diagnosis Onset Date Resolution Status CKD (chronic kidney disease) stage 4, GFR 15-29 ml/min chronic Diabetes chronic Essential (primary) hypertension chronic Tobacco abuse [facility] Work Phone: Evaluation note* Diagnosis Onset Date Resolution Status CKD (chronic kidney disease) stage 4, GFR 15-29 ml/min chronic Diabetes chronic Essential (primary) hypertension chronic Tobacco abuse chronic Chronic obstructive pulmonary disease chronic Smoking greater than 30 pack years [facility] Work Phone: evaluation note* Diagnosis Onset Date Resolution Status Chronic obstructive pulmonary disease chronic Respiratory failure with hypoxia chronic Smoking greater than 30 pack years chronic Fissure in skin of foot acut e CKD (chronic kidney disease) stage 4, GFR 15-29 ml/min chronic DM type 1 (diabetes mellitus, type 1) chronic Tobacco abuse [facility] Work Phone: evaluation note* Diagnosis Onset Date Resolution Status Fissure in skin of foot acut e CKD (chronic kidney disease) stage 4, GFR 15-29 ml/min chronic DM type 1 (diabetes mellitus, type 1) chronic Tobacco abuse chronic Chronic obstructive pulmonary disease chronic Smoking greater than 30 pack years [facility] Work Phone: evaluation note* Diagnosis Onset Date Resolution Status CKD (chronic kidney disease) stage 4, GFR 15-29 ml/min chronic DM type 1 (diabetes mellitus, type 1) chronic Hyperlipidemia chronic 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 Atherosclerosis of coronary artery of craig heart without angina pectoris chronic Chronic obstructive pulmonary disease chronic Cigarette nicotine dependence [facility] Work Phone: evaluation note* Diagnosis Onset Date Resolution Status Atherosclerosis of coronary artery of craig heart without angina pectoris chronic Chronic obstructive pulmonary disease chronic Cigarette nicotine dependence chronic Atherosclerosis of coronary artery of craig heart without angina pectoris chronic Essential (primary) hypertension chronic Hyperlipidemia [facility] Work Phone: Evaluation note* Diagnosis Onset Date Resolution Status Atherosclerosis of coronary artery of craig heart without angina pectoris chronic Essential (primary) hypertension chronic Hyperlipidemia [facility] Work Phone: Evaluation note* Diagnosis Onset Date Resolution Status Lung nodule, solitary acute Chronic obstructive pulmonary disease chronic Smoking greater than 30 pack years chronic CKD (chronic kidney disease) stage 4, GFR 15-29 ml/min chronic DM type 1 (diabetes mellitus, type 1) [facility] Work Phone: Evaluation note* Diagnosis Onset Date Resolution Status CKD (chronic kidney disease) stage 4, GFR 15-29 ml/min chronic DM type 1 (diabetes mellitus, type 1) [facility] Work Phone: Evaluation note* Diagnosis Onset Date Resolution Status CKD (chronic kidney disease) stage 4, GFR 15-29 ml/min chronic DM type 1 (diabetes mellitus, type 1) chronic Lung nodule, solitary acute Chronic obstructive pulmonary disease chronic Respiratory failure with hypoxia [facility] Work Phone: Evaluation note* Diagnosis Onset Date Resolution Status Lung nodule, solitary acute Chronic obstructive pulmonary disease chronic Respiratory failure with hypoxia chronic Atherosclerosis of coronary artery of craig heart without angina pectoris chronic Essential (primary) hypertension chronic Hyperlipidemia [facility] Work Phone: Evaluation note* Diagnosis Onset Date Resolution Status Lung nodule, solitary acute Chronic obstructive pulmonary disease chronic Respiratory failure with hypoxia chronic Atherosclerosis of coronary artery of craig heart without angina pectoris chronic Essential (primary) hypertension chronic Hyperlipidemia chronic Body mass index (BMI) less than 16.5 chronic CKD (chronic kidney disease) stage 4, GFR 15-29 ml/min chronic DM type 1 (diabetes mellitus, type 1) chronic Nicotine abuse chronic Polyneuropathy due to type 1 diabetes mellitus [facility] Work Phone: evaluation note* Diagnosis Onset Date Resolution Status Lung nodule, solitary acute Chronic obstructive pulmonary disease chronic Respiratory failure with hypoxia chronic Atherosclerosis of coronary artery of craig heart without angina pectoris chronic Essential (primary) [...] Nicotine abuse chronic Respiratory failure with hypoxia [facility] Work Phone: evaluation note* Diagnosis Onset Date Resolution Status Atherosclerosis of coronary artery of craig heart without angina pectoris chronic Essential (primary) [...] Nicotine abuse chronic Respiratory failure with hypoxia chronic [facility] Work Phone: Evaluation note* Diagnosis SDH (subdural hematoma) (HCC)- Primary Subdural hemorrhage SDH (subdural hematoma) (HCC) Subdural hemorrhage Stage 4 chronic kidney disease (HCC) COPD (chronic obstructive pulmonary disease) (HCC) Chronic airway obstruction, not elsewhere classified Type 1 diabetes mellitus with kidney complication (HCC) Hyperlipidemia Other and unspecified hyperlipidemia Diabetic neuropathy associated with type 1 diabetes mellitus (HCC) [facility] Diagnosis SDH (subdural hematoma) (HCC) Subdural hemorrhage documented [facility]* Diagnosis Hypercapnic respiratory failure (HCC)- Primary Hypercapnic respiratory failure (HCC) Chronic obstructive pulmonary disease, unspecified COPD type (HCC) [facility]* Diagnosis Chronic respiratory failure with hypoxia and hypercapnia (HCC) [J96.11, J96.12]- Primary Centrilobular emphysema (HCC) [J43.2] Bilateral pleural effusion [J90] Unspecified pleural effusion Hx of bacterial pneumonia [Z87.01] Cigarette nicotine dependence without complication [F17.210] [facility]* Diagnosis Chronic respiratory failure with hypoxia and hypercapnia (HCC) [J96.11, J96.12]- Primary Centrilobular emphysema (HCC) [J43.2] History of recent pneumonia [Z87.01] Other dysphagia [R13.19] Other dysphagia [facility]* Diagnosis Chronic respiratory failure with hypoxia and hypercapnia (HCC) [J96.11, J96.12]- Primary Centrilobular emphysema (HCC) [J43.2] Other dysphagia [R13.19] Other dysphagia Hx of bacterial pneumonia [Z87.01] [facility]* Diagnosis SDH (subdural hematoma) (HCC)- [...] Lujan. * Referral: Dr. Christy Huerta (tel: [phone] fax: [phone]). * I am seeing SANDY DENG at the referring provider's request for surgical suitability for renaltransplant candidate listing at [facility] [place]. * History of Present Illness Comments: Ms. 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 * Insulin use for 22 years [...] * She was not seen by a Piercing Artist. * Psych History: * No history * Psychosocial: * Smoking: yes, takes Bupropion. She is cutting back and now smokes 3 cigarettes per day. She has a 50 pack/year history. * Marijuana/Illicits: No * Alcohol: no * Financial: * She is retired. 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 * She has Active Health Insurance Coverage: PERS * She has access to [employer] to do virtual visits. * Frailty [...] is vaccinated against COVID-19 but not boosted. [id number] [facility] [address] Work Phone: Hospital Discharge instructionsAdditional Instructions At this point in time, no clear reason for your abdominal pain. You need to go home and perform your dialysis today as you are fluid overloaded and you received contrast. CT abdomen pelvis showed vascular disease in the short section dissection the inferior renal abdominal aorta. You need to follow-up with vascular surgery. Call to make an appointment. Follow-up with your primary care physician. Return back to the ED if symptoms change or worsen. Zofran as needed for nausea and vomiting.[facility] Work Phone: Reason for referral (narrative)No reason for referral information availableWSumma Health Akron Campus Work Phone: Chief Complaint and Reason for [...] diabetes mellitus Atherosclerosis of coronary artery of craig heart without angina pectoris Chronic obstructive pulmonary disease Cigarette nicotine dependence Chief Complaint 3 M FU CP CP Amb Documentation Amb Documentation OVERDUE FOR OV (2020) COPD COPD Reason for Visit Atherosclerosis of c oronary artery of craig heart without angina pectoris Chronic obstructive pulmonary disease Cigarette nicotine dependence Atherosclerosis of coronary artery of craig heart without angina pectoris Essential (primary) hypertension Hyperlipidemia Chief Complaint 3 M FU CP CP Amb Documentation Amb Documentation OVERDUE FOR OV (2020) COPD COPD SMOKER Reason for Visit Atherosclerosis of c oronary artery of craig heart without angina pectoris Chronic obstructive pulmonary disease Cigarette nicotine dependence Atherosclerosis of coronary artery of craig heart without angina pectoris Essential (primary) hypertension Hyperlipidemia Chief Complaint CP CP Amb Documentation Amb Documentation OVERDUE FOR OV (2020) COPD COPD SMOKER COPD COPD Reason for Visit Atherosclerosis of c oronary artery of craig heart without angina pectoris Essential (primary) hypertension [...] with hypoxia Atherosclerosis of coronary artery of craig heart without angina pectoris Essential (primary) hypertension Hyperlipidemia Chief Complaint FLANK PAIN, ABD PAIN 3 M FU 6 M FU 3 M FU RENAL,PTH, CBC Reason for Visit Lung nodule, solitar y Chronic obstructive pulmonary disease Respiratory failure with hypoxia Atherosclerosis of coronary artery of craig heart without angina pectoris Essential (primary) hypertension [...] with hypoxia Atherosclerosis of coronary artery of craig heart without angina pectoris Essential (primary) hypertension [...] Visit Atherosclerosis of c oronary artery of craig heart without angina pectoris Essential (primary) hypertension [...] 3:09pm Chronic hypoxic respiratory failure Carlos Alberto tran 2024 3:09pm Chronic obstructive pulmonary disease Cosme dobbs 2024 3:09pm ESRD on hemodialysis November 04, 2024 3 :09pm Hypertension November 04, 2024 3: 09pm ESRD (end stage renal disease) on dialys is December 02, 2024 2:26pm Atherosclerosis of coronary artery of craig heart without angina pectoris December 16, 2024 1:50pm ESRD (end stage renal disease) on dialys is December 16, 2024 1:50pm Essential (primary) hypertension Februar y 2024 1:50pm Hyperlipidemia December 16, 2024 [...] DM type 1 (diabetes mellitus, type 1) [facility] 2024 11:39pm Hypertension January 03, 2025 11:3 9pm Acute hyperkalemia January 03, 2025 11:3 9pm Chronic hypoxemic respiratory failure [facility] 2024 11:39pm AV fistula January 11, 2025 [...] 2024 2:26pm Atherosclerosis of coronary artery of craig heart without angina pectoris December 16, 2024 1:50pm ESRD (end stage renal disease) on dialys is December 16, 2024 1:50pm Essential (primary) hypertension Februar y 2024 1:50pm Hyperlipidemia December 16, 2024 [...] DM type 1 (diabetes mellitus, type 1) [facility] 2024 11:39pm Hypertension January 03, 2025 11:3 9pm Acute hyperkalemia January 03, 2025 11:3 9pm Chronic hypoxemic respiratory failure [facility] 2024 11:39pm AV fistula January 11, 2025 2:5 5pm DM type 1 (diabetes mellitus, type 1) [facility] 2024 8:40am High cholesterol January 27, 2025 8:4 0am Hypertension January 27, 2025 8:4 0am Insulin pump titration January 27, 2025 8:40am Osteoporosis January 27, 2025 8:4 0am Presence of insulin pump January 27 8:40am Vitamin D deficiency January 27, 2025 8: 40am Chief Complaint Admit Date 6 M FU December 16, 2024 1:50pm PRE-OP December 17, 2024 1:45pm right arm Arteriovenous Fistula,Creation December 28, 2024 9:52am right arm Arteriovenous Fistula,Creation December 28, 2024 11:33am sob January 03, 2025 11:3 3pm PNEUMONIA, HYPERKALEMIA January 03, 2025 11:39pm PNEUMONIA, HYPERKALEMIA January 04, 2025 10:12am PNEUMONIA, HYPERKALEMIA January 05, 2025 12:16pm PNEUMONIA, HYPERKALEMIA January 05, 2025 5:03pm PNEUMONIA, HYPERKALEMIA March 6th, 2025 11:29am MULTIPLE LUNG NODULES January 11, 2025 1 2:53pm Post Fistula Creation FU Stitch January 112024 2:55pm 3 M FU, RS 01/06January 27, 2025 8:4 0am 10 WK FU March 22, 2025 12:59 pm E-ORDER April 09, 2025 10:44 am abn labs April 09, 2025 12:22 pm Reason for Visit Admit Date Atherosclerosis of coronary artery of craig heart without angina pectoris December 16, 2024 [...] DM type 1 (diabetes mellitus, type 1) [facility] 2024 11:39pm Hypertension January 03, 2025 11:3 9pm Acute hyperkalemia January 03, 2025 11:3 9pm Chronic hypoxemic respiratory failure [facility] 2024 11:39pm AV fistula January 11, 2025 2:5 5pm DM type 1 (diabetes mellitus, type 1) [facility] 2024 8:40am High cholesterol January 27, 2025 8:4 0am Hypertension January 27, 2025 8:4 0am Insulin pump titration January 27, 2025 8:40am Osteoporosis January 27, 2025 8:4 0am Presence of insulin pump January 27 8:40am Vitamin D deficiency January 27, 2025 8: 40am AV fistula March 22, 2025 12:59 pm Chief Complaint Admit Date MULTIPLE LUNG NODULES January 11, 2025 1 2:53pm Post Fistula Creation FU Stitch January 112024 2:55pm 3 M AMINTA, RS 01/06January 27, 2025 8:4 0am 10 WK FU March 22, 2025 12:59 pm E-ORDER April 09, 2025 10:44 am abn labs April 09, 2025 12:22 pm gen weakness back pain May 08, 2025 7: 59am Reason for Visit Admit Date AV fistula January 11, 2025 2:5 5pm DM type 1 (diabetes mellitus, type 1) [facility] 2024 8:40am High cholesterol January 27, 2025 8:4 0am Hypertension January 27, 2025 8:4 0am Insulin pump titration January 27, 2025 8:40am Osteoporosis January 27, 2025 8:4 0am Presence of insulin pump January 27 8:40am Vitamin D deficiency January 27, 2025 8: 40am AV fistula March 22, 2025 12:59 pm Chief Complaint Admit Date 3 M FU, RS 01/06January 27, 2025 8:4 0am 10 WK FU March 22, 2025 12:59 pm E-ORDER April 09, 2025 10:44 am abn labs April 09, 2025 12:22 pm gen weakness back pain May 08, 2025 7: 59am 3 M FU May 18, 2025 8:42 am Reason for Visit Admit Date DM type 1 (diabetes mellitus, type 1) [facility] 2024 8:40am High cholesterol January 27, 2025 8:4 0am Hypertension January 27, 2025 8:4 0am Insulin pump titration January 27, 2025 8:40am Osteoporosis January 27, 2025 8:4 0am Presence of insulin pump January 27 8:40am Vitamin D deficiency January 27, 2025 8: 40am AV fistula March 22, 2025 12:59 pm Hypercarbia May 18, 2025 8:42 am Lung nodule, multiple May 18, 2025 8: 42am Chronic hypoxic respiratory failure May 18, 2025 8:42am Chronic obstructive pulmonary disease Ju ly 2024 8:42am ESRD on hemodialysis May 18, 2025 8:4 2am Hypertension May 18, 2025 8:42 am Family History Relationship Condition Age at Onset Recorded Date/T amina mother Cardiac disease Unknown Chronic obstructive pulmonary disease Unk nown Lupus erythematosus Unknown daughter Growth disorder Unknown Down syndrome Unknown Fibromyalgia Unknown grandfather Malignant neoplasm of colon Unknown Diabetes mellitus Unknown grandmother Cardiac disease Unknown Cerebrovascular accident (CVA) Unknown Disorder of lung Unknown sister Hypertension Unknown Kidney disorder Unknown Advance Directives Advance Directive Response Recorded Date/ Time Advance Directives No February 04 8:01am Living Will No August 26 8:15pm Power of Core Drier No August 26, 2020 8:15pm Advance Directive Response Recorded Date/ Time Advance Directives No February 04 7:01am Living Will No August 26 7:15pm Power of Core Drier No August 26, 2020 7:15pm Date Activated [...] Do you have a Healthcare Power of Core Drier? No August 26, 2020 8:15pm Living Will No April 14, 2024 10:45pm Do you have a Healthcare Power of Core Drier? No April 14, 2024 10:45pm Advance Directives No January 10 9:10am Living Will No July 24, 2024 12:39am Do you have a Healthcare Power of Core Drier? No July 24, 2024 12:39am Living Will No November 20 8:06pm Do you have a Healthcare Power of Core Drier? No November 20, 2024 8:06pm Living Will No December 14 2:25pm Do you have a Healthcare Power of Core Drier? No December 14, 2024 2:25pm Living Will No January 04, 2025 1:39am Do you have a Healthcare Power of Core Drier? No January 04, 2025 1:39am Advance Directive Response Recorded Date/ Time Living Will No April 14, 2024 10:45pm Do you have a Healthcare Power of Core Drier? No April 14, 2024 10:45pm Advance Directives No January 10 025 9:10am Living Will No December 14 2:25pm Do you have a Healthcare Power of Core Drier? No December 14, 2024 2:25pm Living Will No January 04, 2025 1:39am Do you have a Healthcare Power of Core Drier? No January 04, 2025 1:39am Advance Directive Response Recorded Date/ Time Living Will No April 14, 2024 10:45pm Do you have a Healthcare Power of Core Drier? No April 14, 2024 10:45pm Advance Directives No January 10 9:10am Living Will No December 14 2:25pm Do you have a Healthcare Power of Core Drier? No December 14, 2024 2:25pm Living Will No January 04, 2025 1:39am Do you have a Healthcare Power of Core Drier? No January 04, 2025 1:39am Do you have a Healthcare Power of Core Drier? No April 09, 2025 12:26pm Advance Directive Response Recorded Date/ Time Advance Directives No January 10 9:10am Do you have a Healthcare Power of Core Drier? No April 09, 2025 12:26pm Do you have a Healthcare Power of Core Drier? No May 08, 2025 8:07am Advance Directive Response Recorded Date/ Time Do you have a Healthcare Power of Core Drier? No April 09, 2025 12:26pm Do you have a Healthcare Power of Core Drier? No May 08, 2025 8:07am Advance Directives No January 10 9:10am Summary Purpose Reason for Referral Specialty Diagnoses / Procedures Referred By Contac t Referred To Contact Radiology Diagnoses SDH (subdural hematoma) (HCC) Procedures CT head wo IV contrast Madeline Montalvo, IMAGING AIDE - LOAD OUT PERSON [address] [place] [address] Referral ID Status Reason Start Date Expiration Date V isits Requested Visits Authorized [id number] Authorized 07/27/2024 07/27/2025 1 1 Specialty Diagnoses / Procedures Referred By Contac t Referred To Contact Radiology Diagnoses SDH (subdural hematoma) (HCC) Procedures CT head wo IV contrast Elieser Solis MD [address] [place] [address] Referral ID Status Reason Start Date Expiration Date Visits Re quested Visits Authorized [id number] Closed 07/27/2024 09/10/2024 1 1 Additional Source [...] section and content) DATE CREATED AUTHOR 06/02/2022 [employer] DATE CREATED AUTHOR AUTHOR'S ORGANIZ ATION 06/03/2022 [facility] DATE CREATED AUTHOR AUTHOR'S ORGANIZ ATION 12/18/2024 [facility] DATE CREATED AUTHOR AUTHOR'S ORGANIZ ATION 12/31/2024 [facility] DATE CREATED AUTHOR AUTHOR'S ORGANIZ ATION 05/18/2025 [facility] Care Teams (unrecognized sec tion and content) Team Status: Active Member Role Status Dates Dr. Sin Lujan MD Family Provider Active Dr. Sin Lujan MD Primary Care Provider Activ e Team Status: Inactive Member Role Status Dates Dr. Sin Lujan MD Primary Care Provider, Refe rring Provider Active ELLIE Meza Attending Provider Active Team Status: Inactive Member Role Status Dates Dr. Sin Lujan MD Primary Care Provider, Refmari rring Provider Active Jeanna Davis STORE ASSISTANT, STORE ASSISTANT-C Attending Provider Active Team Status: Active Member [...] Christy Huerta DO Attending Provider, Referring P rovider Active Team Status: Inactive Member Role Status Dates Dr. Sni Lujan MD Primary Care Provider Activ e [...] Active Member Role Status Dates Jeanna Davis STORE ASSISTANT, STORE ASSISTANT-C Referring Provider, Other Pr ovider Active Dr. Sin Lujan MD Primary Care Provider Activ e Dr. Rios Cordova MD Attending Provider Active Team Status: Inactive Member Role Status Dates Jeanna Davis STORE ASSISTANT, STORE ASSISTANT-C Attending Provider, Referrin g Provider Active Dr. Sin Lujan MD Primary Care Provider Activ e Team Status: Inactive Member Role Status Dates Dr. Sin Lujan MD Primary Care Provider Activ e Dr. Christy Huerta DO Attending Provider Active Team Status: Active Member Role Status Dates Jeanna Davis STORE ASSISTANT, STORE ASSISTANT-C Referring Provider, Other Pr ovider Active Dr. Sni Lujan MD Primary Care Provider Activ e [...] Primary Care Provider Activ e Jeanna Davis STORE ASSISTANT, STORE ASSISTANT-C Attending Provider Active Team Status: Inactive Member Role Status Dates Dr. Sin Lujan MD Primary Care Provider, Refe rring Provider Active Kena Sandy STORE ASSISTANT, STORE ASSISTANT-C Attending Provider Active Team Status: Inactive Member Role Status Dates Dr. Sin Lujan MD Primary Care Provider Activ e Jeanna Davis STORE ASSISTANT, STORE ASSISTANT-C Attending Provider, Referrin g Provider Active Team Status: Active Member Role Status Dates Dr. Bird Lujan MD Family Provider Active Dr. Bird Lujan MD Primary Care Provider Acti ve Team Status: Inactive Member Role Status Dates Dr. Bird Lujan MD Primary Care Provider, Ref erring Provider Active Kena Sandy STORE ASSISTANT, STORE ASSISTANT-C Attending Provider Active Team Status: Inactive Member Role Status Dates Dr. Bird Lujan MD Primary Care Provider, Ref erring Provider Active Brenda Medrano NP-C Attending Provider Active Team Status: Inactive Member Role Status Dates Dr. Bird Lujan MD Primary Care Provider, Ref erring Provider Active Jeanna Davis STORE ASSISTANT, STORE ASSISTANT-C Attending Provider Active Team Status: Inactive Member Role Status Dates Dr. Bird Lujan MD Primary Care Provider Acti ve Dr. Christy Huerta DO Attending Provider Active Team Status: Inactive Member Role Status Dates Dr. Bird Lujan MD Primary Care Provider Acti ve Jeanna Davis STORE ASSISTANT, STORE ASSISTANT-C Attending Provider, Referrin g Provider Active Team Status: Inactive Member Role Status Dates Dr. Bird Lujan MD Primary Care Provider Acti ve Dr. Sherice Skelton DPM Attending Provider, Referring Pr ovider Active Behavioral Health Care Coordinator Relationship Specialty Start Date End Date Bird Lujan [address] [address] PCP - General Family Medicine 07/26/24 Behavioral Health Care Coordinator Relationship Specialty Start Date End Date Bird Lujan [address] [place] [address] PCP - General Family Medicine 07/26/24 Param Sousa, RN Registered Nurse [employer] Test Engineer Manager 08/11/24 Behavioral Health Care Coordinator Relationship Specialty Start Date End Date Bird Lujan [address] [place] [address] PCP - General Family Medicine 07/26/24 Param Souas, RN Registered Nurse [employer] Test Engineer Manager 08/11/2409/26 Behavioral Health Care Coordinator Relationship Specialty Start Date End Date Bird Lujan [address] [place] [address] PCP - General Family Medicine 07/26/24 Behavioral Health Care Coordinator Relationship Specialty Start Date End Date Bird Lujan [address] [place] [address] PCP - General Family Medicine 07/26/24 Behavioral Health Care Coordinator Relationship Specialty Start Date End Date Bird Lujan [address] [place] [address] PCP - General Family Medicine 07/26/24 Param Sousa, RN Registered Nurse [employer] Test Engineer Manager 08/11/2409/26 Behavioral Health Care Coordinator Relationship Specialty Start Date End Date Bird Lujan MD [address] [place] [address] PCP - General 10/17/08 Team Status: Active Member Role Status Dates Dr. Bird Lujan MD Primary Care Provider Acti ve Team Status: Inactive Member Role Status Dates Dr. Bird Lujan MD Primary Care Provider Acti ve Start: October 07, 2024 End: October 07, 2024 Dr. Bird Lujan MD Referring Provider Active Start: October 07, 2024 End: October 07, 2024 MITCH MezaC Attending Provider Active Start: October 07, 2024 End: October 07, 2024 Team Status: Inactive Member Role Status Dates Dr. Bird Lujan MD Primary Care Provider Acti ve Start: October 16, 2024 End: October 16, 2024 Jeanna Davis STORE ASSISTANT, STORE ASSISTANT-C Attending Provider Active Start: October 16, 2024 End: October 16, 2024 Jeanna Davis NP, STORE ASSISTANT-C Referring Provider Active Start: October 16, 2024 [...] 2024 End: November 04, 2024 Jeanna Davis NP, STORE ASSISTANT-C Attending Provider Active Start: November 04, 2024 [...] End: December 16, 2024 Mynor Anthony NP, STORE ASSISTANT-C Attending Provider Active S tart: December 16, [...] Star t: January 04, 2025 Dr. Terrance Brown , DO Other Provider Active Start : January [...] t: January 05, 2025 Dr. Christy Huerta , Other Provider Active Sta rt: January 05, [...] 2025 End: January 11, 2025 Jeanna Davis STORE ASSISTANT, STORE ASSISTANT-C Attending Provider Active Start: January 11, 2025 End: January 11, 2025 Jeanna Davis STORE ASSISTANT, STORE ASSISTANT-C Referring Provider Active Start: January 11, 2025 [...] January 27, 2025 End: January 27, 2025 ELLIE Meza Attending Provider Active Start: January 27, 2025 [...] March 22, 2025 End: March 22, 2025 Team Status: Active Member Role Status Dates Dr. Bird Lujan MD Primary Care Provider Acti ve Start: April 09, 2025 Dr. Christy Huerta DO Attending Provider Active Start: April 09, 2025 Dr. Christy Huerta DO Referring Provider Active Start: April 09, 2025 Team Status: Inactive Member Role Status Dates Dr. Bird Lujan MD Primary Care Provider Acti ve Start: April 09, 2025 End: April 09, 2025 Dr. Milind Heath MD Emergency Provider Active Sta rt: April 09, 2025 End: April 09, 2025 Team Status: Inactive Member Role Status Dates Dr. Bird Lujan MD Primary Care Provider Acti ve Start: April 09, 2025 End: April 09, 2025 Dr. Christy Huerta DO Attending Provider Active Start: April 09, 2025 End: April 09, 2025 Dr. Christy Huerta DO Referring Provider Active Start: April 09, 2025 End: April 09, 2025 Team Status: Active Member Role Status Dates Dr. Bird Lujan MD Primary Care Provider Acti ve Start: April 11, 2025 Dr. Christy Huerta DO Attending Provider Active Start: April 11, 2025 Dr. Christy Huerta DO Referring Provider Active Start: April 11, 2025 Team Status: Inactive Member Role Status Dates Dr. Bird Lujan MD Primary Care Provider Acti ve Start: April 11, 2025 End: April 11, 2025 Dr. Christy Huerta DO Attending Provider Active Start: April 11, 2025 End: April 11, 2025 Dr. Christy Huerta DO Referring Provider Active Start: April 11, 2025 End: April 11, 2025 Team Status: Active Member Role/Relationship Status Dates Dr. Bird Lujan MD Primary Care Provider Acti ve Team Status: Inactive Member Role/Relationship Status Dates Dr. Bird Lujan MD Primary Care Provider Acti ve Start: January 11, 2025 End: January 11, 2025 Jeanna Davis NP, STORE ASSISTANT-C Attending Provider Active Start: January 11, 2025 End: January 11, 2025 Jeanna Davis STORE ASSISTANT, STORE ASSISTANT-C Referring Provider Active Start: January 11, 2025 End: January 11, 2025 Team Status: Inactive Member Role/Relationship Status Dates Dr. Bird Lujan MD Primary Care Provider Acti ve Start: January 11, 2025 End: January 11, 2025 Dr. Bird Lujan MD Referring Provider Active Start: January 11, 2025 End: January 11, 2025 BENTON Bucio Attending Provider Active Star t: January 11, 2025 End: January 11, 2025 Team Status: Inactive Member Role/Relationship Status Dates Dr. Bird uLjan MD Primary Care Provider Acti ve Start: January 27, 2025 End: January 27, 2025 Dr. Bird Lujan MD Referring Provider Active Start: January 27, 2025 End: January 27, 2025 Brenda Medrano NP-C Attending Provider Active Start: January 27, 2025 End: January 27, 2025 Team Status: Inactive Member Role/Relationship Status Dates Dr. Bird Lujan MD Primary Care Provider Acti ve Start: March 22, 2025 End: March 22, 2025 Dr. Bird Lujan MD Referring Provider Active Start: March 22, 2025 End: March 22, 2025 BENTON Bucio Attending Provider Active Star t: March 22, 2025 End: March 22, 2025 Team Status: Inactive Member Role/Relationship Status Dates Dr. Bird Lujan MD Primary Care Provider Acti ve Start: April 09, 2025 End: April 09, 2025 Dr. Christy Huerta DO Attending Provider Active Start: April 09, 2025 End: April 09, 2025 Dr. Christy Huerta DO Referring Provider Active Start: April 09, 2025 End: April 09, 2025 Team Status: Inactive Member Role/Relationship Status Dates Dr. Bird Lujan MD Primary Care Provider Acti ve Start: April 09, 2025 End: April 09, 2025 Dr. Milind Heath MD Attending Provider Active Sta rt: April 09, 2025 End: April 09, 2025 Dr. Milind Heath MD Emergency Provider Active Sta rt: April 09, 2025 End: April 09, 2025 Team Status: Inactive Member Role/Relationship Status Dates Dr. Bird Lujan MD Primary Care Provider Acti ve Start: April 11, 2025 End: April 11, 2025 Dr. Christy Huerta DO Attending Provider Active Start: April 11, 2025 End: April 11, 2025 Dr. Christy Huerta DO Referring Provider Active Start: April 11, 2025 End: April 11, 2025 Team Status: Inactive Member Role/Relationship Status Dates Dr. Bird Lujan MD Primary Care Provider Acti ve Start: May 08, 2025 End: May 08, 2025 Dr. Justin Parisi DO Emergency Provider Activ e Start: May 08, 2025 End: May 08, 2025 Team Status: Inactive Member Role/Relationship Status Dates Dr. Bird Lujan MD Primary Care Provider Acti ve Start: January 27, 2025 End: January 27, 2025 Dr. Bird Lujan MD Referring Provider Active Start: January 27, 2025 End: January 27, 2025 ELLIE Meza Attending Provider Active Start: January 27, 2025 End: January 27, 2025 Team Status: Inactive Member Role/Relationship Status Dates Dr. Bird Lujan MD Primary Care Provider Acti ve Start: March 22, 2025 End: March 22, 2025 Dr. Bird Lujan MD Referring Provider Active Start: March 22, 2025 End: March 22, 2025 BENTON Bucio Attending Provider Active Star t: March 22, 2025 End: March 22, 2025 Team Status: Inactive Member Role/Relationship Status Dates Dr. Bird Lujan MD Primary Care Provider Acti ve Start: April 09, 2025 End: April 09, 2025 Dr. Christy Huerta DO Attending Provider Active Start: April 09, 2025 End: April 09, 2025 Dr. Christy Huerta DO Referring Provider Active Start: April 09, 2025 End: April 09, 2025 Team Status: Inactive Member Role/Relationship Status Dates Dr. Bird Lujan MD Primary Care Provider Acti ve Start: April 09, 2025 End: April 09, 2025 Dr. Milind Heath MD Attending Provider Active Sta rt: April 09, 2025 End: April 09, 2025 Dr. Milind Heath MD Emergency Provider Active Sta rt: April 09, 2025 End: April 09, 2025 Team Status: Inactive Member Role/Relationship Status Dates Dr. Bird Luajn MD Primary Care Provider Acti ve Start: April 11, 2025 End: April 11, 2025 Dr. Christy Huerta DO Attending Provider Active Start: April 11, 2025 End: April 11, 2025 Dr. Christy Huerta DO Referring Provider Active Start: April 11, 2025 End: April 11, 2025 Team Status: Inactive Member Role/Relationship Status Dates Dr. Bird Lujan MD Primary Care Provider Acti ve Start: May 08, 2025 End: May 08, 2025 Dr. Justin Parisi DO Attending Provider Activ e Start: May 08, 2025 End: May 08, 2025 Dr. Justin Parisi DO Emergency Provider Activ e Start: May 08, 2025 End: May 08, 2025 Team Status: Inactive Member Role/Relationship Status Dates Dr. Bird Lujan MD Primary Care Provider Acti ve Start: May 18, 2025 End: May 18, 2025 Dr. Bird Lujan MD Referring Provider Active Start: May 18, 2025 End: May 18, 2025 ELLIE Mckeon Attending Provider Active Start: May 18, 2025 End: May 18, 2025 Reason for Visit (unrecogniz ed section and content) Specialty Diagnoses / Procedures Referred By Contac t Referred To Contact Diagnoses SDH (subdural hematoma) (HCC) brain bleed Procedures [id number] Ino Conte MD [address] [place] [address] Formerly [facility] [address] [place] [address] Referral ID Status Reason Start Date Expiration Date Visits Re quested Visits Authorized [id number] 1 1 Specialty Diagnoses / Procedures Referred By Contac t Referred To Contact Radiology Diagnoses SDH (subdural hematoma) (HCC) Procedures CT head wo IV contrast Elieser Solis MD [address] [place] [address] Referral ID Status Reason Start Date Expiration Date Visits Re quested Visits Authorized [id number] Closed 07/27/2024 09/10/2024 1 1 Reason Comments [...] Procedures . Elizabeth Tyler MD [address] [place] [address] Phone: tel: fax: [facility] Medical Intensive Care Unit [address] [place] [address] Phone: tel: Referral ID Status Reason Start Date Expiration Date Visits Re quested Visits Authorized [id number] 1 1 Reason Comments Referral - Kidney Txp Scheduled Active and Recently Administ ered Medications (unrecognized section and content) Medication Order 08/08/2024 08/09/2024 08/10/2024 busPIRone (Buspar) tablet 7.5 mg 7.5 mg, Oral, 2 times daily, First dose on Fri08/02/24 at 1330 0845 (Given - Provider: Blue Middleton RN)2126 (Given - Provider: Joycelyn Welch RN) 0917 (Given - Provider: Chava Rodriguez)2052 (Given - Provider: Joycelyn Welch RN) 131 (Given - Provider: Jim Rodriguez RN - Comment: at dialysis) calcium gluconate [...] RN) 132 (Given - Provider: Jim Rodriguez, RN - Comment: at dialysis) heparin injection 5,000 [...] Middleton RN)1153 (Given - Provider: Blue Middleton, BO)1700 (Given - Provider: Blue Middleton, BO) 0800 (Given - Provider: Blue Middleton, RN)1302 (Given - Provider: Blue Middleton, RN)1756 (Given - Provider: Blue Middleton, RN) 0800 (Not Given - Provider: Jim Rodriguez [...] Mary Mcintosh, JUDE)1433 (Given - Provider: Mary Mcintosh, JUDE)2239 (Given - Provider: Marylu Montanez RCP) 0806 (Given - Provider: Eren Mckeon RCP)1200 (Not Given - Provider: Eren Mckeon RCP - Reason: Patient not available - Comment: dialysis) metoprolol tartrate (Lopressor) tablet 50 mg 50 mg, Oral, 2 times daily, First dose on 08/02/24 at 1330, On hold since Soni 08/05/2024 at 0248 until manually unheld 0900 (Dose Auto Held - Provider: Ana Rosa Carlin DO)2100 (Dose Auto Held - Provider: Ana Rosa Pros DO) 0900 (Dose Auto Held - Provider: Ana Rosa Irizarry Carlin DO)2100 (Dose Auto Held - Provider: Ana Rosa Irizarry Carlin DO) 0900 (Dose Auto Held - Provider: Ana Rosa Pros DO)1640 (Unheld by provider - Provider: Automatic [...] dose 1153 (New Bag - Provider: Blue Middleton RN)1453 (Stopped - Provider: Blue Middleton RN) predniSONE [...] sedation for opioid reversal - MUST notify social organization professor provider immediately after first dose, may give [...] fever, Starting on 08/01/24 at 1331, Give MS if unable to administer by mouth or [...] RN) 0843 (Given - Provider: Nikolay Rene, BO) 0832 (Given - Provider: Sindy Garrison, BO) atorvastatin (Lipitor) tablet 20 mg 20 mg, Oral, Nightly, First dose on Soni 08/12/24 at 2100, Substituted for simvastatin (Zocor). 2042 (Given - Provider: Romero Tobin, BO) 2043 (Given - Provider: Juanis Rojas, BO) budesonide (Pulmicort) 1 MG/2ML nebulizer solution 1 [...] Sanchez RN)204 (Given - Provider: Romero Tobin, BO) 0845 (Given - Provider: Nikolay Rene, BO)204 (Given - Provider: Juanis Rojas RN) 0834 (Given - Provider: Sindy Garrison BO) calcium gluconate 1000 mg in 100 mL [...] RN) 0900 (Given - Provider: Sindy Garrison, BO) fluticasone (Flonase) nasal spray 2 spray 2 [...] available) 0831 (Given - Provider: Sindy Garrison, BO) gabapentin (Neurontin) capsule 200 mg 200 mg, Oral, 2 times daily, First dose on Fri08/12/24 at 2100 0811 (Given - Provider: Calixto Sanchez RN)2042 (Given - Provider: Romero Tobin, BO) 0843 (Given - Provider: Nikolay Rene, BO)2043 (Given - Provider: Juanis Rojas, BO) 0833 (Given - Provider: Sindy Garrison, BO) guaiFENesin (Mucinex) 12 hr tablet 600 mg 600 mg, Oral, 2 times daily, First dose (after last modification) on Fri08/17/24 at 0900, Administer with plenty of fluids to ensure proper action. Do not crush, chew, or split. 0812 (Given - Provider: Calixto Sanchez RN)2042 (Given - Provider: Romero Tobin, BO) 0843 (Given - Provider: Nikolay Rene, BO)2043 (Given - Provider: Juanis Rojas RN) 0833 [...] RN) 0832 (Given - Provider: Sindy Garrison, BO) insulin glargine (Lantus) injection 5 Units 5 Units, SubCUTAneous, Nightly, First dose (after last modification) on Fri08/22/24 at 2100 2046 (Given - Provider: Romero [...] units per order)1214 (Given - Provider: Marylu Zamudio, RN)1838 (Given - Provider: Marylu Zamudio RN) 0844 (Given - Provider: Nikolay Rene RN)1238 (Given - Provider: Nikolay Rene RN)1700 (Not Given - Provider: Nikolay Rene RN - Reason: Order parameters not met) 0834 (Given - Provider: Sindy Garrison, BO)1411 (Given - Provider: Sindy Garrison RN - [...] Provider: Nikolay Rene RN)1238 (Given - Provider: Nikloay Rene RN)1817 (Given - Provider: Nikolay Rene, BO) 0840 (Given - Provider: Sindy Garrison, RN)1413 [...] RN) 0831 (Given - Provider: Sindy Garrison, BO) potassium chloride CR (Klor-Con M10) ER tablet [...] RN)2200 (Canceled Entry - Provider: Romero Tobin, BO) 0600 (Canceled Entry - Provider: Romero Tobin RN)1400 (Not Given - Provider: Nikolay Rene RN - Reason: Other)2200 (Given - Provider: Juanis Rojas RN) 0600 (Given - Provider: Juanis Rojas RN)1400 (Given - Provider: Sindy Garrison, BO) tamsulosin (Flomax) 24 hr capsule 0.4 mg 0.4 mg, Oral, Daily, First dose on 08/22/24 at 1115, Do not crush, chew, or split. 1338 (Given - Provider: Calixto Sanchez RN - Comment: clustered w meds / availability) 0843 (Given - Provider: Nikolay Rene RN) 0832 (Given - Provider: Sindy Garrison RN) tiotropium (Spiriva Respimat) 2.5 MCG/ACT inhaler 2 [...] Starting on Fri08/17/24 at 1646 sodium chloride ([place]) 0.65 % nasal spray 1 spray 1 [...] or prosecute any alcohol or drug abuse patient.[facility] CenterIn the event this information is protected by the Federal Confidentiality of Alcohol and Drug Abuse Patient Records regulations: The Federal rules restrict any use of the information to criminally investigate or prosecute any alcohol or drug abuse patient.[facility] CenterIn the event this information is protected by the Federal Confidentiality of Alcohol and Drug Abuse Patient Records regulations: The Federal rules restrict any use of the information to criminally investigate or prosecute any alcohol or drug abuse patient.[facility] FOR RECORDS PERTAINING TO PATIENTS WHO ARE [...] BE BASED ON THE PRIMARY CLINICAL RECORDS. [facility] HospitalPeople to Remember [facility]. provides no warranty or guarantee of the accuracy or completeness of information in this document.
[2025-05-20 22:19] VITALS: BMI 17.9
[2025-05-20 22:32] LABS: Anion Gap 10 (5-15); BUN 20 mg/dL (4-19); BUN/Creat Ratio 8.6 RATIO (10-20); Calcium,Total 7.9 mg/dL (7.6-11.0); Carbon Dioxide 27.7 mmol/L (21.0-32.0); Chloride 100 mmol/L (98-108); Estimated Creatinine Clearance 19.11 ml/min (50-250); Glucose 164 mg/dL (70-99); Potassium 3.2 mmol/L (3.3-5.1)
[2025-05-20] MEDS: Potassium Chloride Oral Tablet 20 MEQ 60 MEQ PO (22:38)
[2025-05-20 22:40] VITALS: BP 194/65; PULSE 52; RESP 16; TEMP 36.6; O2SAT 100
== END 2025-05-20 22:45 | disposition home or self-care (01) ==
PROVIDERS: Emergency Medicine; Emergency Provider Emergency Medicine; PCP Family Medicine; Visit Provider Emergency Medicine
DX: E87.6 Hypokalemia (principal); N18.4 Chronic kidney disease, stage 4 (severe); J43.9 Emphysema, unspecified; E10.22 Type 1 diabetes mellitus with diabetic chronic kidney disease; Z79.4 Long term (current) use of insulin; E10.42 Type 1 diabetes mellitus with diabetic polyneuropathy; E78.00 Pure hypercholesterolemia, unspecified; I12.9 Hypertensive chronic kidney disease with stage 1 through stage 4 chronic kidney disease, or unspecified chronic kidney disease; I25.10 Atherosclerotic heart disease of native coronary artery without angina pectoris; I25.2 Old myocardial infarction; Z99.81 Dependence on supplemental oxygen; Z79.82 Long term (current) use of aspirin; Z79.899 Other long term (current) drug therapy; Z87.891 Personal history of nicotine dependence; Z95.5 Presence of coronary angioplasty implant and graft
CPT/HCPCS: 36415; 80048; 99282

== ENCOUNTER 2025-05-27 19:06 | Inpatient (IN) | payer MEDICARE, OTHER, SELFPAY ==
[2025-05-27] VITALS (7 sets, daily range): BP systolic 165–170; BP diastolic 63–78; PULSE 69–80; RESP 18–20; TEMP 36.5–37; O2SAT 99–999; BMI 16.8
--- NOTE | 2025-05-27 19:37 | EKG12_ITS ---
Test Reason : SOB Blood Pressure : */* mmHG Vent. Rate : 70 BPM Atrial Rate : 70 BPM P-R Int : 150 ms QRS Dur : 84 ms QT Int : 394 ms P-R-T Axes : 75 -58 91 degrees QTcB Int : 425 ms Normal sinus rhythm Left axis deviation Minimal voltage criteria for LVH, may be normal variant ( Garita product ) Possible Anteroseptal infarct (cited on or before 26-Aug-2020) Abnormal ECG Confirmed by MODESTO DAIGLE, NICOLA ([id number]), news video editor [place] ([id number]) on 05/30/2025 8:32:33 AM Referred By: Confirmed By: NICOLA SALVADOR MD
--- NOTE | 2025-05-27 19:50 | RAD_ITS ---
PROCEDURE: CHEST 1 VIEW (PORTABLE) 05/27/2025 REASON FOR EXAM: DYSPNEA TECHNIQUE: Frontal view of the chest. COMPARISON: 05/08/2025. FINDINGS: The heart is enlarged. Vascular indistinctness lung bases favoring edema. Similar reticular opacities which may represent additional findings of edema, chronic interstitial changes, pneumonitis, or mixture thereof. Blunting of the bilateral costophrenic sulci likely representing small bilateral pleural effusions. RAD/Chest 1 View (Portable) IMPRESSION: Pulmonary findings as above. Reading Location: [id number]
[2025-05-27 20:14] LABS: Hematocrit 32.2 % (37-47); Hemoglobin 9.8 g/dL (12.0-15.0); Immature Granulocytes Count 0.020 X10^3/uL (0.0-0.0); Mean Corp Hgb Conc 30.4 g/dL (32-36); Mean Corpuscular Volume 92.8 fL (81-99); Mean Platelet Vol. 11.4 fl (6.2-12.0); NRBC Flagged by Analyzer 0 % (0-5); Platelet Count 169 K/mm3 (150-450); RBC Distribution Width CV 14.6 % (11.6-14.6); RBC Distribution Width SD 49.4 fl (35.1-43.9); Red Blood Count 3.47 M/mm3 (4.2-5.4); White Blood Count 5.0 K/mm3 (4.4-11.0)
--- NOTE | 2025-05-27 20:23 | EDS_ITS ---
HPI History of Present Illness Chief Complaint: Shortness of Breath Informant: patient and spouse/S.O. Narrative Narrative: 64-year-old female gasping dyspnea for the past 2 days gradually worsening. Chronic cough that is worse but not productive of sputum. No blood. Occasional relatively brief substernal chest discomfort that she cannot describe otherwise. It is not sharp and tearing. Denies any new edema in her legs or calf pain. It is worse when she lies down. She denies any GI symptoms. She has COPD and is chronically on 3 L at home. She did albuterol nebulizer at home, it helped very little but it was a little bit helpful. Denies any fevers or chills. She is a dialysis patient, she makes a little bit of urine, she does home hemodialysis which is relatively new for her with regards to her right upper extremity AV fistula. Today is Friday, on Friday she did dialysis session without any trouble, but today when they did it, the venous return line was causing severe pain and the machine was indicating high pressures; they called the clinic and they were told the blood probably infiltrated and to not do dialysis anymore until tomorrow so they aborted. She admits that she has been drinking more fluid than usual lately. She has had stents in the past in her heart. [facility] Medical History On home oxygen therapy Wears hearing aid Wears glasses Post-menopausal Insulin dependent diabetes mellitus Diabetes History of renal dialysis History of renal disease Anemia High cholesterol Easy bruising Excessive bleeding Injury of head and neck Former smoker Emphysema, unspecified History of edema History of echocardiogram History of stress test Cardiology follow-up encounter Osteoporosis Presence of insulin pump Severely underweight adult Lung nodule, multiple Nicotine abuse Lung nodule, solitary Fissure in skin of foot [place] [facility]'s sign present Tobacco abuse CKD (chronic kidney disease) stage 4, GFR 15-29 ml/min Body mass index (BMI) less than 16.5 Underweight Polyneuropathy due to type 1 diabetes mellitus Stage 4 chronic kidney disease due to type 1 diabetes mellitus Respiratory failure with hypoxia Smoking greater than 30 pack years Anemia Diabetic nephropathy, type I Hyperkalemia Renal insufficiency Diabetes Chronic obstructive pulmonary disease Essential (primary) hypertension Hypersomnia Anxiety Depression Atherosclerosis of coronary artery of [place] heart without angina pectoris NSTEMI (non-ST elevated myocardial infarction) (01/12/18) DM type 1 (diabetes mellitus, type 1) Hyperlipidemia COPD (chronic obstructive pulmonary disease) Home Medications ?Medication ?Instructions ?Recorded ?Last Taken ?Type simvastatin 40 mg tablet 40 mg PO QHS cholesterol 01/03/25 History albuterol sulfate 2.5 mg/3 mL 2.5 mg (3 mL) inhalation Q2H PRN 06/23/18 Unknown Rx (0.083 %) solution for nebulization PRN dyspnea, wheez ing ##1 aspirin 81 mg tablet,delayed 81 mg PO DAILY heart heal th 12/31/19 01/03/25 History release oxygen See Rx Instructions NASAL .C OMPLEX 12/03/23 01/04/25 History O2 therapy ipratropium 0.5 mg-albuterol 3 mg 3 ml inhalation Q4H PRN PRN SOB 12/29/23 Unknown Rx (2.5 mg base)/3 mL nebulization &/OR WHEEZING #180 mL soln denosumab 60 mg/mL subcutaneous 60 mg subcut [id number] bone health 06/10/24 07/09/24 Rx syringe (Prolia) #1 mL clopidogrel 75 mg tablet 75 mg PO DAILY anti platelet #90 07/26/24 01/03/25 Rx tabs nitroglycerin 0.4 mg sublingual 0.4 mg sublingual Q5-1 5M PRN chest 10/21/24 Unknown Rx tablet pain #25 tabs metoprolol tartrate 50 mg tablet 50 mg PO BID blood pr essure #180 11/11/24 01/03/25 Rx tabs amlodipine 10 mg tablet (Norvasc) 10 mg PO DAILY blood pressure 30 11/20/24 01/03/25 Rx days #30 tabs buspirone 7.5 mg tablet 7.5 mg PO DAILY Antianxiety 12/14/24 01/03/25 History sevelamer carbonate 800 mg tablet 800 mg PO TID To low er Phosphorus 12/14/24 01/03/25 History cefdinir 300 mg capsule 300 mg PO BID 5 days #10 cap s 01/06/25 Unknown Rx pseudoephedrine-guaifenesin ER 60 1 tab PO BID cold sy mptoms #14 tabs 01/06/25 Unknown Rx mg-600 mg tablet,extend release 12hr (Mucinex D) blood-glucose sensor (FreeStyle #6 ea 02/09/25 Unknown Rx Eileen 2 Plus Sensor device) insulin pump cart,auto,BT,G6/L #30 ea 02/09/25 Unknown Rx (Omnipod 5 (G6/Eileen 2 Plus) subcutaneous cartridge) albuterol sulfate 90 mcg/actuation 2 puff inhalation Q 6H PRN PRN 03/14/25 Unknown Rx aerosol inhaler Cough #8.5 grams blood-glucose sensor (Dexcom G6 #3 ea 04/07/25 Unknown Rx Sensor device) blood-glucose transmitter (Dexcom #1 ea 04/07/25 Unkno wn Rx G6 Transmitter device) insulin lispro 100 unit/mL 60 unit (0.6 mL) continuous 04/07/25 Unknown Rx subcutaneous solution (Humalog subcutaneous infusion . continuous U-100 Insulin) #54 mL ondansetron 4 mg disintegrating 4 mg PO Q8H PRN PRN Na usea #10 tabs 05/08/25 Unknown Rx tablet roflumilast 500 mcg tablet 500 mcg PO DAILY breathing #30 tabs 05/11/25 Unknown Rx (Daliresp) fluticasone fur. 200 mcg-umeclid 1 inh inhalation HAJA Y breathing 05/18/25 Unknown Rx 62.5 mcg-vilant 25 mcg #3 ea inhalat.powder (Trelegy Ellipta) Allergy/AdvReac Type Severity Reaction Status Date / Time No Known Allergies Allergy Verified 05/27/25 19:11 Family History Mother Heart disease COPD (chronic obstructive pulmonary disease) Lupus Daughter Growth disorder Down syndrome Fibromyalgia Grandfather Colon cancer Diabetes Grandmother Heart disease CVA (cerebral vascular accident) Diabetes Pulmonary disease Sister Hypertension Kidney disease Surgical History Hx of surgical procedure History of cardiac catheterization History of coronary artery stent placement Hx of surgical procedure H/O: Hx of appendectomy H/O: hysterectomy History of coronary artery stent placement (02/04/18) Social History household members: spouse housing: house pets and animals: Yes pets and animals: cat(s) Smoking Status: Former smoker how long ago did patient quit smoking: Since 05/2024 cut back and has only had ~ 10 cigarettes since then. quit status: considering quitting alcohol intake: never substance use type: does not use caffeine: Yes Type: carbonated beverages Number of servings: 4 what type of physical activity do you participate in: none seatbelt use: always do you feel safe at home: Yes ROS ROS ED Constitutional Constitutional ED: Denies chills or fever(s) Eyes Eyes: Denies change in vision or diplopia ENT ENT ED: Denies rhinorrhea or sore throat Cardiovascular Cardiovascular: Reports chest pain and orthopnea; Denies leg edema, palpitations or syncope Respiratory/Chest Respiratory/Chest: Reports cough, dyspnea, dyspnea on exertion, orthopnea and other Details: Extremely dyspneic with very little activity Gastrointestinal Gastrointestinal: Denies abdominal pain, diarrhea, nausea or vomiting Genitourinary Genitourinary ED: Denies dysuria or hematuria Musculoskeletal Musculoskeletal: Denies back pain or neck pain Integumentary Denies abscess or rash Neurologic Neurologic: Denies headache(s), paresthesias or weakness Psychiatric Psychiatric: Denies suicidal thoughts EXAM Physical Exam Const Vital Signs: 05/27/25 19:07 05/27/25 19:11 05/27/25 19:11 Temperature 98.3 F 97.7 F L Temperature Source Oral Oral Pulse Rate 71 71 Respiratory Rate 20 H 20 H Respiratory Effort Short of Breath Respiratory Depth Normal Respiratory Pattern Normal Blood Pressure 166/66 H 166/66 H Blood Pressure Mean 99 99 Pulse Ox 100 100 Oxygen Delivery Method Nasal Cannula Venturi Mask Nasal Cannula Oxygen Flow Rate (L/min) 3 3 3 05/27/25 19:50 05/27/25 20:11 05/27/25 20:22 Temperature 98.6 F Temperature Source Oral Pulse Rate 69 78 Respiratory Rate 18 20 H Respiratory Effort Respiratory Depth Respiratory Pattern Normal Blood Pressure 166/66 H Blood Pressure Mean 99 Pulse Ox 999 Oxygen Delivery Method Nasal Cannula Nasal Cannula Oxygen Flow Rate (L/min) 2 3 05/27/25 21:00 05/27/25 22:00 05/27/25 23:00 Temperature Temperature Source Pulse Rate 72 80 80 Respiratory Rate Respiratory Effort Respiratory Depth Respiratory Pattern Blood Pressure 165/78 H 168/78 H 170/63 H Blood Pressure Mean 107 108 98 Pulse Ox 99 99 99 Oxygen Delivery Method Nasal Cannula Oxygen Flow Rate (L/min) 3 05/28/25 00:00 Temperature Temperature Source Pulse Rate 80 Respiratory Rate Respiratory Effort Respiratory Depth Respiratory Pattern Blood Pressure 173/63 H Blood Pressure Mean 99 Pulse Ox 99 Oxygen Delivery Method Oxygen Flow Rate (L/min) Positive well nourished and well developed Constitutional Narrative: Tachypneic no distress General Appearance ED: well developed HEENT Reports moist mucous membranes normocephalic and atraumatic Eyes PERRL and EOMs intact bilaterally Neck full ROM and supple Resp Resp Narrative: Tachypnea, diffusely severely diminished, occasional inspiratory wheeze. Symmetric bilaterally. Trachea midline. No other adventitious breath sounds. Cardio regular rate, regular rhythm and no murmurs GI non-tender and non-distended Auscultation: normoactive bowel sounds Palpation: soft Back/Spine no CVA tenderness General Back: other FROM Extremity normal to inspection General Extremety ED: Negative for edema, pulses abnormal or tenderness General Extremity: Negative for edema or pulses abnormal Neuro oriented x3, CN's II-XII intact bilaterally and no sensory deficits noted Sensorium / Orientation: awake and alert Motor Exam: strength 5/5 throughout Psych Mood & Affect: anxious Skin no rashes or lesions noted and no wounds MDM MDM MDM Narrative Medical decision making narrative: 2 view chest x-ray my interpretation shows a small left pleural effusion, no pneumonia. According to radiology interpretation, the interstitial pattern favors edema. EKG shows nothing acute, no changes compared with her old on my interpretation. While waiting for blood work, she was treated with an albuterol/ipratropium nebulizer treatment. This helped a little but she was still feeling dyspneic although her oxygen saturations were excellent on her home O2. Her troponin is elevated at 135 however in context of her ESRD. This was repeated 2 hours later. It is similar at 133, arguing against ACS. It is unclear if her symptoms are more COPD-related or from pulmonary edema. My suspicion or concern is for the latter, since she states she has been drinking more fluids than lately, and she and her state that her weight today is about a kilogram over her dry weight and they were unable to take fluid off today since they were not able to get the venous line into her arm vein appropriately. Patient is having no chest pain while she is here, I do not think she needs to be admitted for those symptoms, my concern is that she is still dyspneic and borderline tachypneic, and they were told not to do dialysis again until tomorrow evening. I discussed with staff, we are going to have a dialysis nurse here in the morning. I discussed with Dr. Huerta, her key account manager. She is in agreement that it would be reasonable to admit her but to make sure the patient understands that she will not be able to receive dialysis until the morning shift. Discussed that with the patient, she prefers to stay and have the dialysis nurse dialyze her in the morning. We both agree that this could be an early COPD exacerbation as well, so we also treated her with some steroids. Will discuss with hospitalist. History & Record Review Additional record(s) reviewed:: Other (Echocardiogram 12/2024: Normal EF, no diastolic dysfunction, 1+ mitral insufficiency) Lab Data Attestation: I reviewed the patient's lab results. Labs: Laboratory Results - last 24 hr 05/27/25 05/27/25 05/27/25 19:26 21:15 23:04 WBC 5.0 RBC 3.47 L Hgb 9.8 L Hct 32.2 L MCV 92.8 MCH 28.2 MCHC 30.4 L RDW Std Deviation 49.4 H RDW Coeff of Iron 14.6 Plt Count 169 MPV 11.4 Immature Gran % (Auto) 0.400 Neut % (Auto) 69.6 Lymph % (Auto) 16.0 L [place] % (Auto) 10.0 Eos % (Auto) 3.4 Baso % (Auto) 0.6 Absolute Neuts (auto) 3.5 Absolute Lymphs (auto) 0.80 L Nucleated RBC % 0 Sodium Cancelled 142 Potassium Cancelled 5.0 Chloride Cancelled 108 Carbon Dioxide Cancelled 24.1 Anion Gap Cancelled 10 BUN Cancelled 53 H Creatinine Cancelled 3.91 H Estim Creat Clear Calc Cancelled 10.71 L Est GFR (MDRD) Non-Af Cancelled 12 L BUN/Creatinine Ratio Cancelled 13.4 Glucose Cancelled 109 H Calcium Cancelled 8.3 Troponin T High Sens Cancelled 135 H* Troponin T Hi Sens 2 Hr 133 H* Radiography Diagnostic Testing: Clinical Impression(s) from Imaging Studies Chest X-Ray 05/27/25 19:50 IMPRESSION: Pulmonary findings as above. Reading Location: [facility] PROCEDURE: CHEST 1 VIEW (PORTABLE) 05/27/2025 REASON FOR EXAM: DYSPNEA TECHNIQUE: Frontal view of the chest. COMPARISON: 05/08/2025. FINDINGS: The heart is enlarged. Vascular indistinctness lung bases favoring edema. Similar reticular opacities which may represent additional findings of edema, chronic interstitial changes, pneumonitis, or mixture thereof. Blunting of the bilateral costophrenic sulci likely representing small bilateral pleural effusions. Rhythm Strip Rhythm Strip: Sinus Rhythm Rate: 70 Ectopy: None EKG Initial EKG: Attestation: I personally reviewed and interpreted this EKG as follows: Interpretation: Sinus Rhythm and No Acute Injury Pattern Comments: Left axis. Borderline LVH. Prior EKG tracings: available for review Prior: Unchanged Management Discussion w/another healthcare provider: Hospitalist and Chief Risk Officer (Nephrology Dr. Huerta) Discharge Plan Dx/Rx/DC Orders Clinical Impression: Dyspnea, End-stage renal disease on hemodialysis, Chronic obstructive pulmonary disease, Intermittent chest pain Disposition Disposition: Acute Care Hospital [facility]
[2025-05-27 21:52] LABS: Anion Gap 10 (5-15); BUN 53 mg/dL (4-19); BUN/Creat Ratio 13.4 RATIO (10-20); Calcium,Total 8.3 mg/dL (7.6-11.0); Carbon Dioxide 24.1 mmol/L (21.0-32.0); Chloride 108 mmol/L (98-108); Estimated Creatinine Clearance 10.71 ml/min (50-250); Glucose 109 mg/dL (70-99); Potassium 5.0 mmol/L (3.3-5.1); Troponin T High Sensitivity 135 ng/L (<=14)
--- NOTE | 2025-05-27 22:01 | ED.RN ---
pt rings call light, this nurse responds to call light, pt states she is having trouble breathing. pt appears to be laying in bed, breathing unlabored, vitals stabled and unchanged. this nurse lets pt know she will let the dr know. pt states she wants to leave [facility]. this nurse notifies dr. damon
[2025-05-27 23:50] LABS: Troponin T High Sens 2 HR 133 ng/L (<=14)
[2025-05-28] VITALS (14 sets, daily range): BP systolic 147–179; BP diastolic 60–94; PULSE 69–86; RESP 16–22; TEMP 36.1–36.9; O2SAT 95–99; BMI 16.9
[2025-05-28] MEDS: Albuterol 2.5 MG/3 ML VIAL.NEB. INHALATION (00:39)
--- NOTE | 2025-05-28 00:39 | HP.PCM.HOS_ITS ---
[facility] - General General Date of Service: 05/28/25 Chief Complaint: Shortness of breath HPI Narrative SANDY ELLIS, is a 64 F who presents with a 2-day history of shortness of breath. This is a 64-year-old female dialysis patient who does home dialysis has been short of breath for the past 3 days. She is short of breath all the time. Patient has been doing home dialysis and had most recently this past Friday with no issues but then on Friday patient had pain in her arm and had to be discontinued. They spoke with the dialysis nurse who told them that the venous line may have infiltrated. They present here concern for worsening fluid buildup due to missing dialysis. Patient had a chest x-ray that showed some perhaps some pulmonary vascular congestion. Patient received methylprednisolone and bronchodilators in the emergency room. [facility] Medical History On home oxygen therapy Wears hearing aid Wears glasses Post-menopausal Insulin dependent diabetes mellitus Diabetes History of renal dialysis History of renal disease Anemia High cholesterol Easy bruising Excessive bleeding Injury of head and neck Former smoker Emphysema, unspecified History of edema History of echocardiogram History of stress test Cardiology follow-up encounter Osteoporosis Presence of insulin pump Severely underweight adult Lung nodule, multiple Nicotine abuse Lung nodule, solitary Fissure in skin of foot [place]'s sign present Tobacco abuse CKD (chronic kidney disease) stage 4, GFR 15-29 ml/min Body mass index (BMI) less than 16.5 Underweight Polyneuropathy due to type 1 diabetes mellitus Stage 4 chronic kidney disease due to type 1 diabetes mellitus Respiratory failure with hypoxia Smoking greater than 30 pack years Anemia Diabetic nephropathy, type I Hyperkalemia Renal insufficiency Diabetes Chronic obstructive pulmonary disease Essential (primary) hypertension Hypersomnia Anxiety Depression Atherosclerosis of coronary artery of [place] heart without angina pectoris NSTEMI (non-ST elevated myocardial infarction) (01/12/18) DM type 1 (diabetes mellitus, type 1) Hyperlipidemia COPD (chronic obstructive pulmonary disease) Home Medications ?Medication ?Instructions ?Recorded ?Last Taken ?Type simvastatin 40 mg tablet 40 mg PO QHS cholesterol 01/03/25 History albuterol sulfate 2.5 mg/3 mL 2.5 mg (3 mL) inhalation Q2H PRN 06/23/18 Unknown Rx (0.083 %) solution for nebulization PRN dyspnea, wheez ing ##1 aspirin 81 mg tablet,delayed 81 mg PO DAILY heart heal th 12/31/19 01/03/25 History release oxygen See Rx Instructions NASAL .C OMPLEX 12/03/23 01/04/25 History O2 therapy ipratropium 0.5 mg-albuterol 3 mg 3 ml inhalation Q4H PRN PRN SOB 12/29/23 Unknown Rx (2.5 mg base)/3 mL nebulization &/OR WHEEZING #180 mL soln denosumab 60 mg/mL subcutaneous 60 mg subcut [id number] bone health 06/10/24 07/09/24 Rx syringe (Prolia) #1 mL clopidogrel 75 mg tablet 75 mg PO DAILY anti platelet #90 07/26/24 01/03/25 Rx tabs nitroglycerin 0.4 mg sublingual 0.4 mg sublingual Q5-1 5M PRN chest 10/21/24 Unknown Rx tablet pain #25 tabs metoprolol tartrate 50 mg tablet 50 mg PO BID blood pr essure #180 11/11/24 01/03/25 Rx tabs amlodipine 10 mg tablet (Norvasc) 10 mg PO DAILY blood pressure 30 11/20/24 01/03/25 Rx days #30 tabs buspirone 7.5 mg tablet 7.5 mg PO DAILY Antianxiety 12/14/24 01/03/25 History sevelamer carbonate 800 mg tablet 800 mg PO TID To low er Phosphorus 12/14/24 01/03/25 History cefdinir 300 mg capsule 300 mg PO BID 5 days #10 cap s 01/06/25 Unknown Rx pseudoephedrine-guaifenesin ER 60 1 tab PO BID cold sy mptoms #14 tabs 01/06/25 Unknown Rx mg-600 mg tablet,extend release 12hr (Mucinex D) blood-glucose sensor (FreeStyle #6 ea 02/09/25 Unknown Rx Eileen 2 Plus Sensor device) insulin pump cart,auto,BT,G6/L #30 ea 02/09/25 Unknown Rx (Omnipod 5 (G6/Eileen 2 Plus) subcutaneous cartridge) albuterol sulfate 90 mcg/actuation 2 puff inhalation Q 6H PRN PRN 03/14/25 Unknown Rx aerosol inhaler Cough #8.5 grams blood-glucose sensor (Dexcom G6 #3 ea 04/07/25 Unknown Rx Sensor device) blood-glucose transmitter (Dexcom #1 ea 04/07/25 Unkno wn Rx G6 Transmitter device) insulin lispro 100 unit/mL 60 unit (0.6 mL) continuous 04/07/25 Unknown Rx subcutaneous solution (Humalog subcutaneous infusion . continuous U-100 Insulin) #54 mL ondansetron 4 mg disintegrating 4 mg PO Q8H PRN PRN Na usea #10 tabs 05/08/25 Unknown Rx tablet roflumilast 500 mcg tablet 500 mcg PO DAILY breathing #30 tabs 05/11/25 Unknown Rx (Daliresp) fluticasone fur. 200 mcg-umeclid 1 inh inhalation HAJA Y breathing 05/18/25 Unknown Rx 62.5 mcg-vilant 25 mcg #3 ea inhalat.powder (Trelegy Ellipta) Allergy/AdvReac Type Severity Reaction Status Date / Time No Known Allergies Allergy Verified 05/27/25 19:11 Family History Mother Heart disease COPD (chronic obstructive pulmonary disease) Lupus Daughter Growth disorder Down syndrome Fibromyalgia Grandfather Colon cancer Diabetes Grandmother Heart disease CVA (cerebral vascular accident) Diabetes Pulmonary disease Sister Hypertension Kidney disease Surgical History Hx of surgical procedure History of cardiac catheterization History of coronary artery stent placement Hx of surgical procedure H/O: Hx of appendectomy H/O: hysterectomy History of coronary artery stent placement (02/04/18) Social History household members: spouse housing: house pets and animals: Yes pets and animals: cat(s) Smoking Status: Former smoker how long ago did patient quit smoking: Since 05/2024 cut back and has only had ~ 10 cigarettes since then. quit status: considering quitting alcohol intake: never substance use type: does not use caffeine: Yes Type: carbonated beverages Number of servings: 4 what type of physical activity do you participate in: none seatbelt use: always do you feel safe at home: Yes ROS ROS Narrative Bruising on chest from removal of tunneled dialysis catheter. Described as overall improved from previous. Weight has gone up 0.8 kg. Has chronic lower extremity edema but no change recently. All review of systems were negative except as mentioned above in the history of present illness and the other review of systems. Vital Signs Vital Signs Vital Signs: 05/27/25 19:07 05/27/25 19:11 05/27/25 19:11 Temperature 36.8 C 36.5 C L Temperature Source Oral Oral Pulse Rate 71 71 Respiratory Rate 20 H 20 H Respiratory Effort Short of Breath Respiratory Depth Normal Respiratory Pattern Normal Blood Pressure 166/66 H 166/66 H Blood Pressure Mean 99 99 Pulse Ox 100 100 Oxygen Delivery Method Nasal Cannula Venturi Mask Nasal Cannula Oxygen Flow Rate (L/min) 3 3 3 05/27/25 19:50 05/27/25 20:11 05/27/25 20:22 Temperature 37.0 C Temperature Source Oral Pulse Rate 69 78 Respiratory Rate 18 20 H Respiratory Effort Respiratory Depth Respiratory Pattern Normal Blood Pressure 166/66 H Blood Pressure Mean 99 Pulse Ox 999 Oxygen Delivery Method Nasal Cannula Nasal Cannula Oxygen Flow Rate (L/min) 2 3 05/27/25 21:00 05/27/25 22:00 05/27/25 23:00 Temperature Temperature Source Pulse Rate 72 80 80 Respiratory Rate Respiratory Effort Respiratory Depth Respiratory Pattern Blood Pressure 165/78 H 168/78 H 170/63 H Blood Pressure Mean 107 108 98 Pulse Ox 99 99 99 Oxygen Delivery Method Nasal Cannula Oxygen Flow Rate (L/min) 3 05/28/25 00:00 05/28/25 00:31 Temperature 36.9 C Temperature Source Pulse Rate 80 77 Respiratory Rate 22 H Respiratory Effort Respiratory Depth Respiratory Pattern Blood Pressure 173/63 H 165/63 H Blood Pressure Mean 99 97 Pulse Ox 99 97 Oxygen Delivery Method Oxygen Flow Rate (L/min) Weight Weight: 47.3 kg Body Mass Index (BMI) 16.8 Physical Exam Const alert and no apparent distress General Appearance: cooperative HEENT normocephalic and head/scalp atraumatic Neck no lymphadenopathy Neck Narrative: Positive JVD Resp Resp Narrative: Diminished breath sounds throughout bilateral lung [place]. Faint end expiratory wheeze. Cardio regular rate, regular rhythm, S1 normal heart sound and S2 normal heart sound GI normal to inspection, nondistended, normoactive bowel sounds, soft to palpation, non-tender and non-distended Extremity normal to inspection and full ROM Skin Skin Narrative: Does have ecchymosis on her anterior chest. Neuro moves all extremities and no focal motor deficits Sensorium / Orientation: awake and alert Psych Mood & Affect: anxious Results Lab / Micro Data Attestation: I reviewed the patient's lab results. 05/27/25 19:26 05/27/25 21:15 Labs: Laboratory Results - last 24 hr 05/27/25 19:26: WBC 5.0, RBC 3.47 L, Hgb 9.8 L, Hct 32.2 L, MCV 92.8, MCH 28.2, MCHC 30.4 L, RDW Std Deviation 49.4 H, RDW Coeff of Iron 14.6, Plt Count 169, MPV 11.4, Immature Gran % (Auto) 0.400, Neut % (Auto) 69.6, Lymph % (Auto) 16.0 L, [place] % (Auto) 10.0, Eos % (Auto) 3.4, Baso % (Auto) 0.6, Absolute Neuts (auto) 3.5, Absolute Lymphs (auto) 0.80 L, Nucleated RBC % 0, Sodium Cancelled, Potassium Cancelled, Chloride Cancelled, Carbon Dioxide Cancelled, Anion Gap Cancelled, BUN Cancelled, Creatinine Cancelled, Estim Creat Clear Calc Cancelled, Est GFR (MDRD) Non-Af Cancelled, BUN/Creatinine Ratio Cancelled, Glucose Cancelled, Calcium Cancelled, Troponin T High Sens Cancelled 05/27/25 21:15: Sodium 142, Potassium 5.0, Chloride 108, Carbon Dioxide 24.1, Anion Gap 10, BUN 53 H, Creatinine 3.91 H, Estim Creat Clear Calc 10.71 L, Est GFR (MDRD) Non-Af 12 L, BUN/Creatinine Ratio 13.4, Glucose 109 H, Calcium 8.3, T roponin T High Sens 135 H* 05/27/25 23:04: Troponin T Hi Sens 2 Hr 133 H* Rhythm Strip Rhythm Strip: Sinus Rhythm Rate: 70 Ectopy: None Imaging Radiology Impression Chest X-Ray 05/27/25 19:50 IMPRESSION: Pulmonary findings as above. Reading Location: [id number] Assessment & Plan Assessment/Plan (1) COPD exacerbation: PLAN: Lungs sound very diminished. Will continue methylprednisolone as well as bronchodilators (2) End stage renal disease: PLAN: On home dialysis. Patient did not complete her dialysis session on the due to pain and concern for infiltration of the venous port. Dr. Huerta has been contacted by the emergency room answered the patient to have dialysis today on the . (3) Elevated troponin I level: PLAN: Suspect demand ischemia due to the dyspnea from COPD but also level is likely skewed upwards given her end-stage renal disease. PLAN: Plan Diabetes mellitus type 1: On insulin pump. Will continue with that. Check glucose before every meal and at bedtime. CAD: Stable continue aspirin and clopidogrel Hypertension: Stable continue with amiodarone and metoprolol titrate VTE prophylaxis with subcu heparin CODE STATUS: Addressed with the patient. Patient wishes to be full code. Discussed with the patient's at bedside. Charges/Coding Visit Charges Inpatient E&M: 86168 Init Hosp L3
--- OUTSIDE RECORDS SUMMARY | 2025-05-28 00:50 | XMS RPT_ITS | CCD ---
Author Organization [facility] CliniSywa Care Team Providers Care Cellar Supervisor Name Role Phone Ruggeri TRAFFIC CONTROL TECHNICIAN, Ana Rosa F Unavailable Unavailabl e Ruggeri TRAFFIC CONTROL TECHNICIAN, Ana Rosa F Unavailable Unavailabl e Dr. Sin Lujan Primary Care Provider [phone] Dr. Sin Lujan Referring Provider ELLIE Medrano Attending Provider Dr. Rios Cordova Attending Provider [phone] ELLIE Medrano Attending Provider Dr. Rios Cordova Referring Provider [phone] None, No PCP Unavailable Unavailable Dr. Sin Lujan Primary Care Provider Dr. Sin Lujan Referring Provider Susan BOARDING ROOM FIXER, BOARDING ROOM FIXER-C Jeanna Attending Provider [phone] ELLIE Medrano Attending Provider [phone] Susan JUÁREZ, MARQUITA-C Jeanna Referring Provider [phone] Susan JUÁREZ, BOARDING ROOM FIXER-C Jeanna Other Provider Dr. Rios Cordova Attending Provider Dr. Sin Lujan Primary Care Provider [phone] Dr. Sin Lujan Referring Provider ELLIE Medrano Attending Provider [phone] Susan BOARDING ROOM FIXER, BOARDING ROOM FIXER-C Jeanna Referring Provider [phone] Susan BOARDING ROOM FIXER, BOARDING ROOM FIXER-C Jeanna Other Provider Dr. Rios Cordova Attending Provider [phone] Rios Cordova Referring Provider Dr. Sin Lujan Primary Care Provider Dr. Sni Lujan Referring Provider ELLIE Medrano Attending Provider Susan BOARDING ROOM FIXER, BOARDING ROOM FIXER-C Jeanna Attending Provider [phone] BENTON Hardy Referring Provider BENTON Hardy Other Provider Dr. Salomon Robbins Attending Provider Radha Aranda Attending Provider Unavailable Dr. Sin Lujan Primary Care Provider [phone] Dr. Sin Lujan Referring Provider Heidi Russell Attending Provider Unavailable BENTON Hardy Attending Provider Susan BOARDING ROOM FIXER, BOARDING ROOM FIXER-C Jeanna Referring Provider [phone] Susan BOARDING ROOM FIXER, BOARDING ROOM FIXER-C Jeanna Other Provider Dr. Rios Cordova Attending Provider Dr. Sin Lujan Primary Care Provider [phone] Dr. Sin Lujan Referring Provider Dr. Terrance Alva Attending Provider Susan BOARDING ROOM FIXER, BOARDING ROOM FIXER-C Jeanna Referring Provider [phone] Susan BOARDING ROOM FIXER, BOARDING ROOM FIXER-C Jeanna Other Provider Dr. Sin Lujan Primary Care Provider Dr. Terrance Alva Attending Provider Dr. Sin Lujan Referring Provider Dr. Rios Cordova Attending Provider [phone] ELLIE Medrano Attending Provider Dr. Sin Lujan Primary Care Provider Dr. Sin Lujan Primary Care Provider Dr. Sin Lujan Referring Provider Susan BOARDING ROOM FIXER, BOARDING ROOM FIXER-C Jeanna Attending Provider Dr. Sin Lujan Primary Care Provider Dr. Sin Lujan Referring Provider Du BOARDING ROOM FIXER, BOARDING ROOM FIXER-C Kena Attending Provider Dr. Sin Lujan Primary Care Provider Dr. Sin Lujan Referring Provider Susan BOARDING ROOM FIXER, BOARDING ROOM FIXER-C Jeanna Attending Provider Du BOARDING ROOM FIXER, BOARDING ROOM FIXER-C Kena Attending Provider MARQUITA Medrano-Marquis Gutierrez Attending Provider Dr. Bird Lujan Primary Care Provider Dr. Bird Lujan Referring Provider [phone] Susan BOARDING ROOM FIXER, BOARDING ROOM FIXER-C Jeanna Attending Provider Bird Lujan Primary Care Provider Bird Lujan Primary Care Provider [phone] Lars RN, Param Unavailable Unavailable Lars RN, Param Unavailable Unavailable Lars RN, Param Unavailable Unavailable COLIN PEOPLES Referring Unavailable [facility] Unavailable INO CONTE Admitting Unavailable JONI ARANA Consulting Unavailab FLY Adhikari Attending Unavailable ELIZABETH TYLER Referring Unavailable [facility] Primary Care Unavailable TORITO MAHAJAN Referring Unavailable [facility] Unavailable SUNI BROWN Referring Unavailable R[facility]NEY[facility] Primary Care Unavailable TARI BRIGGS Consulting Unavailable KEMAR ADAMES Admitting Unavailable SAVITA DENISE Attending Unavailable TORITO MAHAJAN Referring Unavailable RANNEY, [facility] Primary Care Unavailable MADELINE MONTALVO Attending Unavailable MADELINE MONTALVO Referring Unavailable [facility] Primary Care Unavailable ELIESER SOLIS Attending Unavailable ELIESER SOLIS Referring Unavailable TAI, [facility] Primary Care Unavailable Bird Lujan MD B Primary Care Provider Dr. Bird Lujan MD Primary Care Provider Tai DAIGLE, Dr. Pang Referring Provider [phone] Mitchell BOARDING ROOM FIXER-C, Brenda Attending Provider Susan BOARDING ROOM FIXER-C, Jeanna Attending Provider Susan BOARDING ROOM FIXER-C, Jeanna Referring Provider Bradley ANDERSON, Dr. Harrison Attending Provider Bradley ANDERSON, Dr. Harrison Referring Provider Dottie DAIGLE, Dr. Ballesteros Attending Provider Provider, Ed Physician Attending Provider Catina acuna Provider, Ed Physician Emergency Provider Catina Parisi DO, Dr. Anderson Attending Provider Isak ANDERSON, Dr. Anderson Emergency Provider [facility] BOARDING ROOM FIXER-C, Mynor Barbosa Attending Provider Kayleigh Farnsworth Attending Provider Kayleigh Farnsworth Referring Provider Timothy DAIGLE, Dr. Oliveira Attending Provider Dottie DAIGLE, Dr. Ballesteros Referring Provider Dottie DAIGLE, Dr. Ballesteros Other Provider Kumar DAIGLE, Dr. Vaz Emergency Provider Micaela ADIGLE, Dr. Johnson Attending Provider Micaela DAIGLE, Dr. Johnson Admit Provider Micaela DAIGLE, Dr. Johnson Other Provider Bradley ANDERSON, Dr. Harrison Other Provider Pradeep DAIGLE, Dr. Cutler Attending Provider Pradeep DAIGLE, Dr. Cutler Other Provider [phone] José Miguel DAIGLE, Dr. Hendricks Other Provider Elham DAIGLE, Dr. Peña Other Provider Art DAIGLE, Dr. Nation Other Provider Dr. Terrance Alva DO Other Provider Juan Pablo DAIGLE, Dr. Jimmy Walton Other Provider [phone] Vargas DAIGLE, Dr. Garcia Other Provider [phone] Frannie DAIGLE, Dr. Dorado Other Provider Lauren DAIGLE, Dr. Stone Other Provider Choco DAIGLE, Dr. Burdick Other Provider Jeet DAIGLE, Dr. Jameson Other Provider [phone] Guilherme DAIGLE, Dr. Motta Other Provider Prema DAIGLE, Dr. Cadet Other Provider Lorenzo DAIGLE, Dr. Kim Other Provider Unavailabl mari Franco MD, Dr. Turnre Other Provider [phone] Marquez DAIGLE, Dr. Awad Other Provider Yahir DAIGLE, Dr. Langston Other Provider [phone] Peter DAIGLE, Dr. Wang Other Provider Altagracia ANDERSON, Dr. Holguin Other Provider Adrienne DAIGLE, Dr. Michael Other Provider [phone] Shamika DAIGLE, Dr. Marcano Other Provider [phone] John Dash DO Other Provider Joaquin DAIGLE, Dr. Lemus Other Provider Donny DAIGLE, Dr. Champagne Other Provider Pradeep DAIGLE, Dr. Cutler Referring Provider Dr. Terrance Alva DO Attending Provider Dottie DAIGLE, Dr. Ballesteros Attending Provider Dr. Christy Huerta DO Referring Provider [phone] Tai DAIGLE, Dr. Pang Primary Care Provider Tai DAIGLE, Dr. Pang Referring Provider Susan BOARDING ROOM FIXER-C, Jeanna Attending Provider Susan BOARDING ROOM FIXER-C, Jeanna Referring Provider Mitchell BOARDING ROOM FIXER-C, Brenda Attending Provider Dottie DAIGLE, Dr. Ballesteros Attending Provider Bradley ANDERSON, Dr. Harrison Attending Provider Bradley ANDERSON, Dr. Harrison Referring Provider Tai DAIGLE, Dr. Pang Primary Care Provider Susan BOARDING ROOM FIXER-C, Jeanna Attending Provider Susan BOARDING ROOM FIXER-C, Jeanna Referring Provider Tai DAIGLE, Dr. Pang Referring Provider Kayleigh Farnsworth Attending Provider Mitchell BOARDING ROOM FIXER-C, Brenda Attending Provider Dr. Christy Huerta DO Attending Provider Bradley ANDERSON, Dr. Harrison Referring Provider Kumar DAIGLE, Dr. Vaz Attending Provider Kumar DAIGLE, Dr. Vaz Emergency Provider Isak ANDERSON, Dr. Anderson Emergency Provider Tai DAIGLE, Dr. Pang Primary Care Provider Dr. Bird Lujan MD Referring Provider Kayleigh Farnsworth Attending Provider Isak ANDERSON, Dr. Anderson Attending Provider Reshma BOARDING ROOM FIXER-C, Irais Gomez Attending Provider Dr. Alonzo Edwards DO Emergency Provider Kayleigh Payne Referring Unavailable Kayleigh Payne Attending Unavailable Bird Lujan Primary Care Unavailable Bird Lujan Primary Care Unavailable Christy Huerta Attending Unavailable Christy Huerta Referring Unavailable Bird Lujan Primary Care Unavailable Christy Huerta Attending Unavailable Reynaldo Huertaine Referring Unavailable [place], Favian Attending Unavailable Dottie, Favian Referring Unavailable [facility] Care Unavailable Christy Huerta Attending Unavailable [facility] Unavailable Irais Justice Referring Unavailable Irais Justice Attending Unavailable [facility] Care Unavailable White, Lani L Admitting Unavailable White, Lani L Consulting Unavailable Favian Nicholas Attending Unavailable [facility] Unavailable Donnell, Jayaprakas Consulting Unavailable Leon Cao Consulting Unavailable AdeMario [...] Allan Consulting Unavailable Ihsan Hines Consulting Unavailable Bradley Christy Consulting Unavailable [facility] Primary [facility] Unavailable Brenda Medrano Attending Unavailable Favian Sinclair Attending Unavailable Dottie, Favian Consulting Unavailable [place], Favian Referring Unavailable [facility] Unavailable [facility] Primary Care Unavailable Alex Hinojosa Attending Unavailable White, Lani L Consulting Unavailable White, Lani L Admitting Unavailable Favian Nicholas Attending Unavailable [facility] Primary Care Unavailable Donnell, Jayaprakas Consulting Unavailable Leon Cao Consulting Unavailable AdeMario [...] Lloyd Consulting Unavailable Julio Ventura Consulting Unavailable MarquezJoy villarrealtam Consulting Unavailable Kian Sinclair Consulting Unavailable Felipe Green Consulting Unavailable Fernanda Deleon Consulting Unavailable Allan Nuñez Consulting Unavailable Ihsan Hines Consulting Unavailable Christy Huerta Consulting Unavailable Favian Nicholas Consulting [facility] Unavailable Justin Parisi Attending Unavailabl e Provider, Ed Physician Attending Unavailab [facility] Unavailable [facility] Primary Care Unavailable Milind Heath Attending Unavailable Justin Parisi Attending Unavailquinn guerra [facility] Primary Care Unavailable [facility] Primary Care Unavailable Susan BOARDING ROOM FIXER, Jeanna Attending Unavailable Susan BOARDING ROOM FIXER, Jeanna Referring Unavailable Christy Huerta Referring Unavailable Christy Huerta Attending Unavailable [facility] Primary Care Unavailable Lani Samaniego Attending Unavailable [facility] Primary Care Unavailable Christy Huerta Consulting Unavailable He Cat Attending Unavailable Alex Hinojosa Admitting Unavailable Alex Hinojosa Consulting Unavailable He Cat Consulting Unavailable [facility] Primary Care Unavailable Kayleigh Payne Attending Unavailable Ranney, Christopher Referring [facility] Unavailable Alex Hinojosa Admitting Unavailable Christy Huerta Consulting Unavailable He Cat Attending Unavailable Alex Hinojosa Consulting Unavailable Favian Nicholas Referring Unavailable Terrance Alva Attending Unavailable Alonzo Edwards Attending Unavailable [facility] Primary Care Unavailable Ranhealy, Christopher Referring Unavailable Brenda Medrano Attending [facility] Unavailable Ranhealy, Christopher Referring Unavailable Viraj No Attending Unavailable [facility] Primary Care Unavailable [facility] Primary Care Unavailable Brenda Medrano Attending Unavailable Ranhealy, Christopher Referring Unavailable [facility] Referring Unavailable Gabrielle BOARDING ROOM FIXERMynor Attending Unavailable [facility] Primary Care Unavailable Bradley, Christy Referring Unavailable Favian Sinclair Attending Unavailable [facility] Primary Care Unavailable [facility] Referring Unavailable Susan BOARDING ROOM FIXER, Jeanna Attending Unavailable [facility] Primary Care Unavailable [facility] Referring Unavailable Irais Justice Attending Unavailable [facility] Primary Care Unavailable [facility] Primary Care Unavailable [facility], Christopher Referring Unavailable Kayleigh Payne Attending Unavailable Terrance Alva Attending Unavailable He Cat Referring Unavailable Eladio Valdez Consulting Unavailable Casey Lizarraga Consulting Unavailable Rios Cordova Consulting Unavailable Terrance Alva Consulting Unavailable Jimmy Almeida Consulting Unavailable Jose Kaye Consulting Unavailable Estrada Kathleen Consulting Unavailable Bertha Aguilar Consulting UnavailGennaro Cordova Consulting Unavailable Trino Marcano Consulting Unavailable Kalia Vanegas Consulting Unavailable Chichi Lloyd Consulting Unavailable AlJulio wilks Consulting Unavailable Franco, Yue Consulting Unavailable Marquez, Ritesh Consulting Unavailable IrukRyan pughan Consulting Unavailable Peter, Felipe Consulting Unavailable Dhesi, Ezio Consulting Unavailable Fernanda Deleon Consulting Unavailable Krys Wick Consulting Unavailable John Dash Consulting Unavailable Allan Nuñez Consulting Unavailable Ihsan Hines Consulting Unavailable Favian Sinclair Attending Unavailable [facility] Primary Care Unavailable Lani Samaniego Referring Unavailable Saroj Lemos Attending Unavailable [facility] Primary Care Unavailable Favian Sinclair Attending Unavailable [facility] Primary Care Unavailable Tee Aguirre Attending Unavailquinn e Tai [facility] Unavailable [facility]aly [facility] Primary Care Unavailable Bird Lujan Referring Unavailable Favian Sinclair Attending Unavailable Baldo Tripp Attending Unavailable Jeanna Davis NP Attending Unavailable Susan BOARDING ROOM FIXER, Jeanna Referring Unavailable Bird Lujan Primary Care Unavailable Allergies Allergy Classification Reported Allergen(s) Allergy Type Date of Onset Reaction(s) Facility (3 sources) environmental [Other] Propensity to adverse reactions 9 [facility] Medications Current Medications Medication Drug Class(es) Dates Sig (Normalized) Sig (Original) amLODIPine 10 mg oral tablet (20 sources) Dihydropyridine Calcium Channel Darwin Start: 11-20-2024 take 1 tablet by mouth once daily Amlodipine (Norvasc) 10 mg tablet Active 10 mg PO DAILY 30 30 0 November 20, 2024 1:00am blood pressure Start: 05-30-2021 End: 11-18-2023 take 1 tablet by mouth once daily Amlodipine (Norvasc) 2.5 mg tablet Discontinued 2.5 mg PO DAILY 30 June 22, 2021 2:48pm November 18, 2023 12:01pm aspirin 81 mg delayed release oral tablet (20 sources) Platelet Aggregation Inhibitor, Nonsteroidal Anti-inflammatory Drug Start: 12-31-2019 End: 08-24-2024 take 1 tablet by mouth once daily Aspirin 81 mg tablet,delayed release (DR/EC) Active 81 mg PO DAILY December 31, 2019 1:00am [facility] Start: 11-19-2019 End: 12-31-2019 take 1 tablet by mouth once daily Aspirin 325 mg tablet Discontinued 325 mg PO DAILY November 19, 2019 1:00am December 31, 2019 11:55am Start: 03-23-2009 ASPIRIN 81 MG TAB Take one(1) tablet daily. 0 03/23/2009 Active Blood-Glucose Sensor (Dexcom G6 Sensor) device (20 sources) Start: 04-07-2025 Blood-Glucose Sensor (Dexcom G6 Sensor) device Active 0 .Route 3 5 April 07, 2025 4:27pm Type 1 diabetes [...] (Freest yle Eileen 2 Plus Sensor) device (6 sources) Start: 02-09-2025 Blood-Glucose Sensor (Freestyle Eileen 2 Plus Sensor) device Active 0 .Route 6 February 09, 2025 8:21am Type 1 diabetes mellitus Type 1 diabetes mellitus with diabetic chronic kidney disease Chronic kidney disease, stage 4 (severe) 1 sensor q 15 days Start: 01-27-2025 End: 02-09-2025 Blood-Glucose Sensor (Freest yle Eileen 2 Plus Sensor) device Discontinued 0 .Route 6 2 January 27, 2025 12:00am February 09, 2025 8:21am Type 1 diabetes mellitus Type 1 diabetes mellitus with diabetic chronic kidney disease Chronic kidney disease, stage 4 (severe) 1 sensor q 15 days Blood-Glucose Transmitter (Dexcom G6 Transmitter) device (18 sources) Start: 04-07-2025 Blood-Glucose Transmitter (Dexcom G6 Transmitter) device Active 0 .Route 1 April 07, 2025 4:27pm Type 1 diabetes mellitus Type 1 diabetes mellitus with diabetic chronic kidney disease Chronic kidney disease, stage 4 (severe) 1 transmitter q 90 days Start: 03-02-2025 End: 04-07-2025 Blood-Glucose Transmitter (D excom G6 Transmitter) device Discontinued 0 .Route 1 1 March 02, 2025 12:00am April 07, [...] / glycopyrrolate 0.009 mg/actuat metered dose inhaler (18 sources) Corticosteroid, beta2-Adrenergic Agonist Start: 07-20-2024 Breztri Aerosph ere 160-9-4.8 MCG/ACT aerosol 07/20/2024 Active Start: 07-20-2024 End: 10-07-2024 Jytjwauidx-Rvkaiaof-Bqssfmbi ol (Breztri Aerosphere) 160-9-4.8 mcg/actuation HFA aerosol [...] MG capsule Discontinued 300 mg PO Q12H June 23, 2018 12:00am July 30, 2018 12:55pm Chronic obstructive pulmonary disease with (acute) exacerbation Pneumonia, unspecified organism Pneumonia, COPD exac cholecalciferol 0.025 mg donna wable tablet (12 sources) Vitamin D Cholecalciferol ([facility]S Vitamin D3) 25 MCG (1000 UT) chewable tablet Chew. Active [facility]S VITAMIN D3 1 000 UNIT CHEW Weekly CHOLECALCIFEROL [id number] Alyssia Ibanez RN RN Continuous Glucose Sensor (Dexcom G6 Sensor) [facility] (6 sources) Start: 07-22-2024 Continuous Glucose Sensor (Dexcom G6 Sensor) [facility] 07/22/2024 Active Continuous Glucose Transmitter (Dexcom G6 transmitter) [facility] (6 sources) Start: 07-25-2024 Continuous Glucose Transmitter (Dexcom G6 transmitter) [facility] 07/25/2024 Active 1 ml denosumab 60 mg/ml prefilled syringe (20 sources) RANK Ligand Inhibitor Start: 05-26-2024 End: 06-10-2024 Denosumab (Prolia) 60 mg/mL syringe Active 60 mg SC every 6 months 11 03June 10, 2024 9:41am Osteoporosis Age-related osteoporosis without [...] mouth once daily. Active Flash Glucose Scanning [place] (Freestyle Eileen 2 [place]) [facility] (20 sources) Start: 11-20-2020 Flash Glucose Scanning [place] (Freestyle Eileen 2 [place]) [facility] Active 0 .ROUTE .MEDSUPPLY November 20, 2020 10:12am As directed Start: 11-20-2020 End: 01-27-2025 Flash Glucose Scanning [place] r (Freestyle Eileen 2 [place]) [facility] Discontinued 0 .ROUTE .MEDSUPPLY 1 November 20, 2020 1:00am January 27, 2025 8:47am As directed Start: 11-20-2020 Flash Glucose Scanning [place] (Freestyle Eileen 2 [place]) [facility] Active 0 .ROUTE .MEDSUPPLY November 20, 2020 12:00am As directed Start: 11-20-2020 Flash Glucose Scanning [place] (Freestyle Eileen 2 [place]) misc Active 0 .ROUTE .MEDSUPPLY 1 November 20, 2020 1:00am As directed fluticasone [...] device Active 1 NMA INHALATION DAILY 3 May 18, 2025 9:21am Chronic respiratory failure with hypoxia Chronic respiratory failure with hypoxia breathing Start: 05-18-2025 End: 05-18-2025 Szzpkkrjzmg-Nujhtpdgt-Uzkney er (Trelegy Ellipta) 200-62.5-25 mcg blister with device Discontinued 1 NMA INHALATION DAILY 3 May 18, 2025 8:59am May 18, 2025 9:22am breathing Start: 12-30-2024 End: 05-18-2025 Eadnwdcgiuf-Vmriezjte-Rqmlet er (Trelegy Ellipta) 200-62.5-25 mcg blister with device Discontinued 1 NMA INHALATION DAILY 3 December 30, 2024 12:58pm May 18, 2025 8:59am breathing Start: 12-30-2024 Fluticasone-Um eclidin-Vilanter (Trelegy Ellipta) 200-62.5-25 mcg blister with device Active 1 NMA INHALATION DAILY 3 December 30, 2024 12:58pm breathing Start: 12-30-2024 Start: 10-13-2024 End: 12-30-2024 Naaymsgbcli-Vzzeaslxr-Fioxaw er (Trelegy Ellipta) 200-62.5-25 mcg blister with device Discontinued 1 NMA INHALATION DAILY 3 October 13, 2024 1:00am December 30, 2024 12:58pm Start: 10-13-2024 End: 12-30-2024 Start: 10-29-2023 End: 07-20-2024 Zvxulsepaab-Fawlefivf-Cskdzc er (Trelegy Ellipta) 200-62.5-25 mcg blister with device Discontinued 1 NMA INHALATION DAILY 3 3 October 29, 2023 4:13pm July 20, [...] 29, 2023 3:13pm Start: 10-01-2023 End: 10-29-2023 Tvlhqhlmkyq-Uagepeein-Behfxx er (Trelegy Ellipta) 200-62.5-25 mcg blister with device Discontinued 1 NMA INHALATION DAILY 3 October 01, 2023 3:45pm October 29, 2023 4:14pm Start: 10-01-2023 End: 10-29-2023 Start: 10-01-2023 End: 10-29-2023 Ipjjeszolec-Xbwkyauiw-Jloxto er (Trelegy Ellipta) 200-62.5-25 mcg blister with device Discontinued 1 INH INHALATION DAILY October 01, 2023 3:45pm October 29, 2023 4:14pm Start: 10-01-2023 End: 10-29-2023 Siwhtszvjry-Eurhnhghi-Soxauj er (Trelegy Ellipta) 200-62.5-25 mcg blister with device Discontinued 1 INH INHALATION DAILY October 01, 2023 2:45pm October 29, 2023 3:14pm Start: 10-01-2023 Fluticasone-Um eclidin-Vilanter (Trelegy Ellipta) 200-62.5-25 mcg blister with device Active 1 INH INHALATION DAILY 3 October 01, 2023 2:45pm Start: 06-25-2023 End: 10-01-2023 Qxoaawdwhsg-Mhzyjzjlk-Kbjdqc er (Trelegy Ellipta) 200-62.5-25 mcg blister with device Discontinued 1 NMA INHALATION DAILY 60 June 25, 2023 12:00am October 01, 2023 3:46pm Start: 06-25-2023 End: 10-01-2023 Start: 06-25-2023 End: 10-01-2023 Cdyylvwosij-Rsmkazszq-Ebdsqk er (Trelegy Ellipta) 200-62.5-25 mcg blister with device Discontinued 1 INH INHALATION DAILY 60 June 25, 2023 12:00am October 01, 2023 3:46pm Start: 06-25-2023 End: 10-01-2023 Xwvgwattlxh-Sfpdrjfik-Fztyfb er (Trelegy Ellipta) 200-62.5-25 mcg blister with device Discontinued 1 INH INHALATION DAILY 60 June 24, 2023 11:00pm October 01, 2023 2:46pm 12 hr guaiFENesin 600 mg / pseudoephedrine hydrochloride 60 mg extended release oral tablet (8 sources) alpha-Adrenergic Agonist Start: 01-06-2025 take 1 tablet by mouth every twelve hours Pseudoephedrine-Guaifenesin (Mucinex D) 60-600 mg tablet extended release 12 hr Active 1 {tbl} PO TWICE A DAY 14 0 January 06, 2025 1:00am cold symptoms Start: 01-06-2025 Insulin Disposable Pump (Omnipod 5 [id number] Intro Gen 5) kit (3 sources) Start: 12-03-2023 Insulin Disposable Pump (Omnipod 5 [id number] Intro Gen 5) kit 12/03/2023 Active Insulin Disposable Pump (Omnipod 5 [id number] Pods Gen 5) misc (3 sources) Start: 07-15-2024 Insulin Disposable Pump (Omnipod 5 [id number] Pods Gen 5) misc 07/15/2024 Active insulin [...] 21 units sq q hs INSULIN GLARGINE [id number] Alyssia Ibanez RN RN Start: 01-21-2015 End: [...] 20 units sq q hs INSULIN GLARGINE [id number] Qi Dunham LPN Insulin Pump Cart,Auto,Bt,G6 /L (Omnipod 5 (G6/Eileen 2 Plus)) cartridge (6 sources) Start: 02-09-2025 Insulin Pump C art,Auto,Bt,G6/L [...] 2 Plus)) cartridge Discontinued 0 .Route 30 January 27, 2025 12:00am February 09, 2025 [...] HOURS NEEDED as needed for Nausea 10 0 May 08, 2025 12:00am Start: 08-20-2016 End: 01-29-2018 take 1 tablet by mouth every eight hours as needed for nausea Ondansetron Hcl 8 MG tablet Discontinued 8 mg PO EVERY 8 HOURS NEEDED as needed for Nausea/Vomiting 15 0 August 20, 2016 12:00am January 29, 2018 8:59am ZOFRAN 8 MG TABS PRN ONDANSETRON HCL [id number] Alyssia Ibanez RN RN Oxygen (6 sources) Start: 12-03-2023 oxygen Active 0 NASAL [...] nauseated.). 30 tablet 1 02/14/2012 Active Roflumilast (18 sources) Phosphodiesterase 4 Inhibitor Start: 05-11-2025 take [...] Active sevelamer carbonate 800 mg oral tablet (8 sources) Phosphate Binder Start: 12-14-2024 take 1 [...] TABS One tablet by mouth daily SIMVASTATIN [id number] Alyssia Ibanez RN RN Trelegy Ellipta 200-62.5-25 [...] pain and fever 20 ml albumin human, detention 250 mg/ml injection (12 sources) Human Serum Albumin Start: 08-16-2024 End: 08-17-2024 Start: 08-16-2024 End: 08-16-2024 Start: 08-13-2024 End: 08-13-2024 Start: 08-05-2024 End: 08-05-2024 [id number] 200 actuat albuterol 0.09 mg/actuat metered dose [...] 26, 2018 1:49pm take 2 puff(s) by [facility] every six hours for cough albuterol 108 (90 Base) MCG/ACT inhaler inhale 2 puffs by mouth and INTO THE LUNGS every 6 hours if needed for cough Active PROAIR HFA 108 ( 90 Base) MCG/ACT AERS PRN ALBUTEROL SULFATE [id number] Alyssia Ibanez RN RN albuterol 0.833 mg/ml [...] AUGMENTIN 875-125 MG TABS bid AMOXICILLIN-POT CLAVULANATE [id number] Edie Kearney MD Start: 12-30-2012 AUGMENTIN 875- 125 MG TABS bid AMOXICILLIN-POT CLAVULANATE [id number] Edie Kearney MD take 10 mL by mouth every eight hours AUGMENTIN 250-62.5 MG/5ML SUSR 10 ml po q 8 hrs AMOXICILLIN-POT CLAVULANATE [id number] Qi Dunham LPN End: 12-30-2012 take 10 mL by mouth every eight hours AUGMENTIN 250-62.5 MG/5ML SUSR 10 ml po q 8 hrs AMOXICILLIN-POT CLAVULANATE [id number] Edie Kearney MD ASPIRIN TBEC (2 sources) take 1 tablet by mouth once daily ASPIR-81 TBEC One tablet by mouth daily ASPIRIN TBEC [id number] Qi Dunham LPN atorvastatin 20 mg oral tablet (2 sources) HMG-CoA Reductase Inhibitor Start: 08-12-20 End: 08-24-20 azithromycin 500 mg oral tablet (20 sources) Macrolide Antimicrobial Start: 08 End: 06-30-20 take 1 tablet by mouth once daily Azithromycin 500 MG tablet Discontinued 500 mg PO DAILY 1 0 June 23, 2018 12:00am June 30, 2018 9:37am Pneumonia Take dose on 06/24/18 B-Complex With Vitamin C (Super B/C) capsule (19 sources) Start: 07-04-20 End: 10-29-20 B-Complex With [...] mg tablet Discontinued 75 mg PO DAILY August 08, 2022 12:00am July 14, 2023 [...] 10:23am calcium carbonate 1500 mg oral tablet (20 sources) Start: 04-09-2023 End: 10-29-2023 take 1 [...] SUSR 500mg po q 12 hrs CIPROFLOXACIN [id number] Qi Dunham [employer] TECHNICIAN clopidogrel 75 mg oral tablet (20 sources) P2Y12 Platelet Inhibitor Start: 06-21-2018 End: 08-24-2024 take 1 tablet by mouth once daily Clopidogrel 75 mg tablet Discontinued 75 mg PO DAILY 90 August 26, 2023 4:33pm July 26, 2024 8:28am Start: 01-16-2018 End: 02-05-2018 take 1 tablet by mouth once daily Clopidogrel 75 MG tablet Discontinued 75 mg PO DAILY 30 January 16, 2018 12:00am February 05, 2018 [...] by mouth twice daily prn DOCUSATE SODIUM [id number] Alyssia Ibanez RN RN docusate sodium 50 mg / sennosides, detention 8.6 mg oral tablet (2 sources) Start: 08-17-2024 End: 08-24-2024 doxycycline hyclate 100 mg oral tablet (20 sources) Tetracycline- class Drug Start: 06-27-2021 End: 02-21-2022 take 1 tablet by mouth twice daily Doxycycline Hyclate 100 mg tablet Discontinued 100 mg PO TWICE A DAY 20 0 June 27, 2021 12:00am February 21, 2022 1:09pm Start: 01-21-2013 End: 01-31-2013 take 1 tablet by mouth every twelve hours DOXYCYCLINE HYCLATE 100 MG TABS 100 mg po every 12 hrs x 10 d DOXYCYCLINE HYCLATE [id number] Edie Kearney MD ergocalciferol 1.25 mg oral capsule (20 sources) Provitamin D2 Compound Start: 06-21-2018 End: 07-14-2023 Ergocalciferol (Vitamin D2) 50,000 UNIT capsule Discontinued 49143 U PO Q7D June 21, 2018 12:00am [...] One tablet by mouth daily ESCITALOPRAM OXALATE [id number] Alyssia Ibanez RN RN ferrous sulfate 325 [...] 1:00am July 19, 2021 1:00pm As directed Tlszngrsmrw-Lubgoddmc-Npplev er (20 sources) Anticholinergic, Corticosteroid, beta2-Adrenergic Agonist Start: 02-17-2023 End: 06-25-2023 Wmehewmizsm-Qhfcgkjte-Bjuexs er (Trelegy Ellipta) 100-62.5-25 mcg blister with device Discontinued 1 NMA INHALATION daily 60 February 17, 2023 9:13am June 25, 2023 8:59am Chronic obstructive pulmonary disease, unspecified administer at approximately the same time(s) each day Start: 02-17-2023 End: 06-25-2023 Start: 02-17-2023 End: 06-25-2023 Aoivmdgqjrd-Rlfletstx-Lwaooa er (Trelegy Ellipta) 100-62.5-25 mcg blister with device Discontinued 1 INH INHALATION daily 60 February 17, 2023 9:13am June 25, 2023 8:59am administer at approximately the same time(s) each day Start: 02-17-2023 End: 06-25-2023 Ztpcpsxhtuq-Xrzbhqpxk-Mhfojm er (Trelegy Ellipta) 100-62.5-25 mcg blister with device Discontinued 1 INH INHALATION daily 60 February 17, 2023 8:13am June 25, 2023 7:59am administer at approximately the same time(s) each day Start: 02-17-2023 Fluticasone-Um eclidin-Vilanter (Trelegy Ellipta) 100-62.5-25 mcg blister with device Active 1 INH INHALATION daily 60 February 17, 2023 9:13am administer at approximately the same time(s) each day Start: 02-21-2022 End: 02-17-2023 Objnsawusjr-Klwsyfglx-Yrrezq er (Trelegy Ellipta) 100-62.5-25 mcg blister with device Discontinued 1 NMA INHALATION daily 60 February 21, 2022 1:21pm February 17, 2023 9:13am Chronic obstructive pulmonary disease, unspecified administer at approximately the same time(s) each day Start: 02-21-2022 End: 02-17-2023 Start: 02-21-2022 End: 02-17-2023 Xholywykdyg-Mpabujfrv-Jyhcnl er (Trelegy Ellipta) 100-62.5-25 mcg blister with device Discontinued 1 INH INHALATION daily 60 February 21, 2022 12:21pm February 17, 2023 8:13am administer at approximately the same time(s) each day Start: 02-21-2022 End: 02-17-2023 Obxlqejigpz-Warsxszfm-Davxzh er (Trelegy Ellipta) 100-62.5-25 mcg blister with [...] time(s) each day Start: 01-16-2022 End: 02-21-2022 Vlgoyhnvrgl-Odyrtyehn-Anuwie er (Trelegy Ellipta) 100-62.5-25 mcg blister with device Discontinued 1 NMA INHALATION daily 60 January 16, 2022 11:47am February 21, 2022 1:22pm Chronic obstructive pulmonary disease, unspecified administer at approximately the same time(s) each day Start: 01-16-2022 End: 02-21-2022 Start: 01-16-2022 End: 02-21-2022 Mlnsqtivhhm-Uvjrjrfqb-Uikqpu er (Trelegy Ellipta) 100-62.5-25 mcg blister with device Discontinued 1 INH INHALATION daily 60 January 16, 2022 10:47am February 21, 2022 12:22pm administer at approximately the same time(s) each day Start: 01-16-2022 End: 02-21-2022 Cituqmikvcs-Kebqatwdr-Tfpnvs er (Trelegy Ellipta) 100-62.5-25 mcg blister with device Discontinued 1 INH INHALATION daily 60 January 16, 2022 11:47am February 21, 2022 1:22pm administer at approximately the same time(s) each day Start: 01-16-2022 Fluticasone-Um eclidin-Vilanter (Trelegy Ellipta) 100-62.5-25 mcg blister with device Active 1 INH INHALATION daily 60 January 16, 2022 11:47am administer at approximately the same time(s) each day Start: 09-10-2021 End: 01-16-2022 Vmgoudhqlkv-Ivjfvlkks-Mqudwg er (Trelegy Ellipta) 100-62.5-25 mcg blister with device Discontinued 1 NMA INHALATION daily 60 3 September 10, 2021 2:48pm January 16, 2022 11:48am Chronic obstructive pulmonary disease, unspecified administer at approximately the same time(s) each day Start: 09-10-2021 End: 01-16-2022 Start: 09-10-2021 End: 01-16-2022 Chxobgwxwuo-Jocqpesgd-Xrumlq er (Trelegy Ellipta) 100-62.5-25 mcg blister with device Discontinued 1 INH INHALATION daily 60 September 10, 2021 1:48pm January 16, 2022 10:48am administer at approximately the same time(s) each day Start: 09-10-2021 End: 01-16-2022 Ruphgpgzllm-Pxarniuiz-Khzyil er (Trelegy Ellipta) 100-62.5-25 mcg blister with device Discontinued 1 INH INHALATION daily 60 September 10, 2021 2:48pm January 16, 2022 11:48am administer at approximately the same time(s) each day Start: 04-03-2021 End: 09-10-2021 Pxzcdjebyuk-Ytgofgnic-Jpwspt er (Trelegy Ellipta) 100-62.5-25 mcg blister with device Discontinued 1 NMA INHALATION daily 60 April 03, 2021 10:55am September 10, 2021 2:49pm Chronic obstructive pulmonary disease, unspecified administer at approximately the same time(s) each day Start: 04-03-2021 End: 09-10-2021 Start: 04-03-2021 End: 09-10-2021 Zrpyatrxqvr-Vapvilaie-Vaaoth er (Trelegy Ellipta) 100-62.5-25 mcg blister with device Discontinued 1 INH INHALATION daily 60 April 03, 2021 9:55am September 10, 2021 1:49pm administer at approximately the same time(s) each day Start: 04-03-2021 End: 09-10-2021 Johxvajlvjz-Oxxnyveup-Mcyime er (Trelegy Ellipta) 100-62.5-25 mcg blister with device Discontinued 1 INH INHALATION daily 60 April 03, 2021 10:55am September 10, 2021 2:49pm administer at approximately the same time(s) each day Start: 09-12-2020 End: 04-03-2021 Mrddfecpboa-Vcfhloppz-Aygstn er (Trelegy Ellipta) 100-62.5-25 mcg blister with device Discontinued 1 INH INHALATION daily 60 September 12, 2020 9:59am April 03, 2021 10:55am administer at approximately the same time(s) each day Start: 09-12-2020 End: 04-03-2021 Hszgyviftge-Bhebqnkdr-Hvnybv er (Trelegy Ellipta) 100-62.5-25 mcg blister with device Discontinued 1 NMA INHALATION daily 60 3 September 12, 2020 1:00am April 03, 2021 10:55am Chronic obstructive pulmonary disease, unspecified administer at approximately the same time(s) each day Start: 09-12-2020 End: 04-03-2021 Start: 09-12-2020 End: 04-03-2021 Vnjglbttygi-Zltrbjwzq-Hulweb er (Trelegy Ellipta) 100-62.5-25 mcg blister with device Discontinued 1 INH INHALATION daily 60 September 12, 2020 12:00am April 03, 2021 9:55am administer at approximately the same time(s) each day Start: 09-12-2020 End: 04-03-2021 Zkrusozdrmr-Ayuqsnqyl-Auufzb er (Trelegy Ellipta) 100-62.5-25 mcg blister with [...] in case of hypoglycemia emergency GLUCAGON (RDNA) [id number] Alyssia Ibanez RN RN 150 ml glucose [...] 08-10-2024 hydrALAZINE hydrochloride 25 mg oral tablet (19 sources) Arteriolar Vasodilator Start: 12-16-2024 End: 05-18-2025 [...] po q 4 hrs prn HYDROMORPHONE HCL [id number] Qi Dunham [employer] TECHNICIAN ibuprofen 200 mg oral tablet (8 sources) Nonsteroidal Anti-inflammatory Drug End: 12-16-2012 take 1 tablet by mouth every six hours as needed MOTRIN IB TABS 800 mg by mouth q 6 hrs prn IBUPROFEN TABS [id number] Qi Dunham [employer]FFIC [employer]OL TECHNICIAN End: 12-30-2012 ADVIL 200 MG CAPS q 4 hrs as needed IBUPROFEN [id number] Edie Kearney MD Insulin Basal Pump (Pt's [...] SOLN 21 units at bedtime INSULIN DETEMIR [id number] Alyssia Ibanez RN RN insulin isophane, human [...] SC BEFORE MEALS AND AT BEDTIME 1 August 29, 2020 12:00am September 04, 2021 8:52am Please contact the information source for Protocol details. Start: 02-12-2012 End: 04-07-2025 take 5 [IU] by subcu taneous injection three times daily at mealtime HUMALOG 100 UNIT/ML SOLN 5 units sq three times a day with meals INSULIN LISPRO (HUMAN) [id number] Qi Dunham LPN End: 12-30-2012 take 5 [IU] by subcutaneous injection three times daily at mealtime HUMALOG 100 UNIT/ML SOLN 5 units sq three times a day with meals INSULIN LISPRO (HUMAN) [id number] Edie Kearney MD Insulin Pump Cart,Auto,Bt-Cn tr (Omnipod 5 G6 Intro Kit (Gen 5)) cartridge (6 sources) Start: 12-03-2023 End: 05-31-2024 Insulin Pump Cart,Auto,Bt-Cn tr (Omnipod 5 G6 Intro Kit (Gen 5)) cartridge Discontinued 0 .Route 1 December 03, 2023 1:00am May 31, 2024 8:04am 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 Start: 12-03-2023 Insulin Pump C art,Auto,Bt-Cntr (Omnipod 5 G6 Intro Kit (Gen 5)) cartridge Active 0 .Route 1 December 03, 2023 1:00am x1 Insulin Pump Cart,Automated, Bt (Omnipod 5 G6 Pods (Gen 5)) cartridge (9 sources) Start: 05-31-2024 End: 01-13-2025 Insulin Pump [...] pod 72 hours Insulin Pump Cart,Automated,Bt cartridge (3 sources) Start: 01-13-2025 End: 02-23-2025 Insulin Pump Cart,Automated,Bt cartridge Discontinued 0 .Route 10 January 13, 2025 4:22pm February 23, 2025 8:19am 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 1 pod 72 hours INSULIN SYRINGE-NEEDLE U-100 (2 sources) BD SAFETYGLIDE I NSULIN SYRINGE 31G X 15/64 0.3 ML MISC INSULIN SYRINGE-NEEDLE U-100 [id number] Alyssia Ibanez RN RN insulin aspart, human [...] NOVOLOG 100 UNIT /ML SOLN INSULIN ASPART [id number] Alyssia Ibanez RN RN insulin, regular, human [...] End: 08-13-2024 levoFLOXacin 750 mg oral tablet (20 sources) Quinolone Antimicrobial Start: 11-04-2023 End: 11-11-2023 take 1 tablet by mouth every twenty-four hours Levofloxacin 750 mg tablet Discontinued 750 mg PO Q24H 10 7 0 November 04, 2023 1:00am November 10, 2023 1:00am November 11, 2023 1:04am Start: 12-18-2012 End: 01-21-2013 take 1 tablet by mouth once daily LEVAQUIN 500 MG TABS One tablet by mouth daily for 5 days LEVOFLOXACIN [id number] Qi Dunham LPN lisinopril 2.5 mg oral [...] Nitrofuran Antibacterial Start: 08-09-2024 End: 08-24-2024 nystatin 607449 unt/ml oral suspension (20 sources) Polyene Antifungal Start: 06-23-2018 End: 12-31-2018 take 238963 [IU] by mouth four times daily Nystatin 500,000 UNIT/5 ML suspension Discontinued 239333 U PO 4 TIMES DAILY 1 0 June 23, 2018 12:00am December 31, 2018 3:49pm Continue usage until resolution of your oral fungal infection. oxyCODONE hydrochloride 5 mg oral tablet (8 sources) Opioid Agonist Start: 12-28-2024 End: 01-04-2025 [...] 08-04-2024 Pen Needle, Diabetic 1 EACH needle (3 sources) Start: 08-29-2020 End: 01-27-2025 Pen Needle, Diabetic 1 EACH needle Discontinued 1 NMA MC BEFORE MEALS AND AT BEDTIME 1 August 29, 2020 12:00am January 27, 2025 8:47am piperacillin 4000 mg / tazobactam 500 mg injection (2 sources) Penicillin-class Antibacterial, beta Lactamase Inhibitor Start: 08-12-2024 End: 08-12-2024 polyethylene glycol 3350 89084 mg powder for oral solution (4 sources) Osmotic Laxative Start: 08-17-2024 End: 08-24-2024 Start: 07-26-2024 End: 08-10-2024 take 17 g by mouth every twenty-four jesus rs as needed for constipation microencapsulated potassium chloride 10 meq extended release oral tablet (4 sources) Start: 08-22-2024 End: 08-22-2024 Start: 08-06-2024 End: 08-06-2024 Start: 08-06-2024 End: 08-06-2024 potassium gluconate 2.13 meq oral tablet (8 sources) Start: 12-16-2024 End: 01-06-2025 take 1 [...] tablet Disc ontinued 10 mg PO daily June 27, 2021 12:00am February 21, 2022 [...] 1 capsule by inhalation once daily Tiotropium Burgin 18 MCG capsule, w/inhalation device Discontinued 18 ug IH DAILY June 21, 2018 12:00am September 12, 2020 9:59am breathing Start: 06-21-2018 End: 09-12-2020 SPIRIVA HANDIHAL ER 18 MCG CAPS Daily TIOTROPIUM BROMIDE MONOHYDRATE [id number] Alyssia Ibanez RN RN varenicline 1 mg oral tablet (4 sources) Partial Cholinergic Nicotinic Agonist End: 01-21-2013 take 2 tablets by mouth once daily CHANTIX 1 MG TABS Two tablets by mouth daily VARENICLINE TARTRATE [id number] Edie Kearney MD (6 sources) Start: 08-22-2024 [...] Date Documented Da te Episodic/Chronic Abdominal pain (4 sources) Abdominal pain; Translations: [Unspecified abdominal pain] Onset: 05-13-2025 05-08-2025 Episodic Acute cerebrovascular disease (18 sources) Hematoma [...] Coronary atherosclerosis; Translations: [Atherosclerotic heart disease of [place] coronary artery without angina pectoris] Onset: 08-12-2024 02-17-2023 Chronic Deficiency and other anemia (20 sources) Anemia; Translations: [Anemia, unspecified] Onset: 07-26-2024 12-13-2022 Episodic Deficiency and other anemia (8 sources) Normocytic normochromic anemia; Translations: [Anemia, unspecified] 07-23-2024 Episodic Diabetes mellitus with complications (20 sources) Diabetes with neurological manifestations, type I [juvenile type], uncontrolled; Translations: [Diabetic ketoacidosis] Onset: 12-30-2012 12-30-2012 Chronic Diabetes mellitus without complication (20 sources) Type 1 diabetes mellitus; Translations: [Diabetes mellitus] Onset: 03-08-2009 02-23-2017 Chronic Diabetes mellitus without complication (20 sources) Insulin pump present; Translations: [Presence of [...] unspecified] Onset: 08-12-2024 06-21-2018 Episodic Nutritional deficiencies (14 sources) Vitamin D deficiency; Translations: [Vitamin D deficiency, unspecified] 01-27-2025 Chronic Osteoporosis (17 sources) Osteoporosis; Translations: [Age-related osteoporosis without current pathological fracture] Onset: 01-27-2025 10-07-2024 Chronic Other circulatory disease (20 sources) Arteriovenous fistula; Translations: [Arteriovenous fistula, acquired] [...] nodule] 06-25-2023 Episodic Other lower respiratory disease (19 sources) Multiple nodules of lung; Translations: [Other nonspecific abnormal finding of lung field] Onset: 05-17-2024 02-05-2024 Episodic Other lower respiratory disease (3 sources) Other nonspecific abnormal finding of lung field; Translations: [Other nonspecific abnormal finding of lung field] Onset: 03-24-2025 02-05-2024 Episodic Other lower respiratory disease (3 sources) H/O: pneumonia; Translations: [Personal history of pneumonia (recurrent)] 08-25-2024 Episodic Other lower respiratory disease (8 sources) Dyspnea on exertion; Translations: [Other forms of dyspnea] 05-05-2024 Episodic Other lower respiratory disease (11 sources) Hypercapnia; Translations: [Other abnormalities of breathing] [...] Episodic Other nutritional; endocrine; and metabolic disorders (8 sources) Severe thinness in adulthood; Translations: [Underweight] 08-01-2024 Episodic Other screening for suspected conditions (not mental disorders or infectious disease) (8 sources) Patient encounter status; Translations: [Encounter for screening for osteoporosis] 08-01-2024 Episodic Other skin disorders (20 sources) Lesion of skin of foot; Translations: [Changes in skin texture] Onset: 08-12-2024 12-13-2022 Episodic Other skin disorders (2 sources) Changes in skin texture; Translations: [Other specified disorders of skin] Episodic Poisoning by other medications and drugs (20 sources) Poisoning by unspecified drugs, medicaments and biological substances, accidental (unintentional), initial encounter; Translations: [Accidental drug ingestion] 08-26-2020 Episodic Residual codes; unclassified (20 sources) Tobacco user; Translations: [Tobacco use] 12-13-2022 Episodic Residual codes; unclassified (10 sources) Tobacco use; Translations: [Tobacco use disorder] Episodic Residual codes; unclassified (17 sources) Harmful pattern of use of nicotine; Translations: [Tobacco use] 07-14-2023 Episodic Respiratory failure; insufficiency; arrest (adult) (20 sources) Chronic respiratory failure; Translations: [Chronic respiratory failure with hypoxia] Onset: 05-18-2025 08-25-2024 Chronic Screening or history of mental health and [...] loss of consciousness status unknown, initial encounter ([facility]); Translations: [Traumatic subdural hemorrhage with loss of consciousness status unknown, initial encounter ([facility])] Onset: 07-26-2024 Unclassified (3 sources) PMH - PAST MEDICAL HISTORY OF 03-23-2009 Viral infection (8 sources) Disease caused by 2019-nCoV; Translations: [COVID-19] 07-23-2024 Episodic Viral infection (2 sources) COVID-19; Translations: [COVID-19] Onset: 08-02-2024 Past or Other Problems Problem Classification Problem Date Documented Da te Episodic/Chronic Acute and unspecified renal failure (20 sources) Injury of kidney; Translations: [Acute kidney failure, unspecified] Onset: 4 06-21-2018 Episodic Conditions associated with dizziness or vertigo (6 sources) Dizziness; Translations: [Dizziness and giddiness] Onset: 4 08-12-2024 Episodic Deficiency and other anemia (1 source) Anemia, unspecified; Translations: [Anemia, unspecified] Onset: 5 Episodic Nonspecific chest pain (6 sources) Chest pain; Translations: [Chest pain, unspecified] Onset: 4 08-12-2024 Episodic Other gastrointestinal disorders (2 sources) H/O: gastrointestinal disease; Translations: [Personal history of other diseases of the digestive system] Onset: 3 01-21-2013 Episodic Other upper respiratory disease (4 sources) Retropharyngeal abscess; Translations: [Disorder of pharynx] Onset: 3 01-21-2013 Episodic Pleurisy; pneumothorax; pulmonary collapse (16 sources) Bilateral pleural effusion; Translations: [Pleural effusion, not elsewhere classified] Onset: 5 08-25-2024 Episodic Pneumonia (except that caused by tuberculosis or sexually transmitted disease) (20 sources) Pleural effusion associated with pulmonary infection; Translations: [Pneumonia, unspecified organism] Onset: 5 01-03-2025 Episodic Residual codes; unclassified (1 source) Procedure and treatment not carried out due to patient leaving prior to being seen by health care provider; Translations: [Procedure and treatment not carried out due to patient leaving prior to being seen by health care provider] Onset: 5 Episodic Respiratory failure; insufficiency; arrest (adult) (20 sources) Hypoxemic respiratory failure; Translations: [Respiratory failure, unspecified with hypoxia] Onset: 4 Episodic Unclassified (1 source) Traumatic subdural hemorrhage with loss of consciousness status unknown, initial encounter ([facility]); Translations: [Traumatic subdural hemorrhage with loss of consciousness status unknown, initial encounter ([facility])] Onset: 4 Results Test Name Value Interpretation Reference Range Facility Anion gap in Serum or Plasma Ordered By: Shivani Mcrae on 05-20-2025 Anion gap [Moles/Vol] 10 mmol/L 5- [facility] BUN/creatinine ratioOrdered By: Shivani Mcrae on 05-20-2025 Urea nitrogen/Creatinine [Mass ratio] 8.6 mg/mg Low 08-22 [facility] Basic Metabolic Profile (BMP )on 05-20-2025 BUN/CRE 8.6 RATIO Low 08-22 [facility] Comment on above: Performed By: #### L 500.2500 ####[facility] [id number] [place], [address] Calcium [Mass/Vol] 7.9 mg/dL Normal 7.6-11.0 [facility] Comment on above: Performed By: #### L 500.2500 ####[facility] [address] [place], [address] Chloride [Moles/Vol] 100 mmol/L Normal 98-108 [facility] Comment on above: Performed By: #### L 500.2500 ####[facility] [address] [place], [address] CO2 [Moles/Vol] 27.7 mmol/L Normal 21.0-32.0 [facility] Comment on above: Performed By: #### L 500.2500 ####[facility] [address] [place], [address] Creatinine [Mass/Vol] 2.33 mg/dL High 0.70-1.20 [facility] Comment on above: Performed By: #### L 500.2500 ####[facility] [address] [place], [address] ECRCL 19.11 ml/min Low 50-250 [facility] Comment on above: Performed By: #### L 500.2500 ####[facility] [address] [place], [address] GAP 10 Normal 5-15 [facility] Comment on above: Performed By: #### L 500.2500 ####[facility] [address] [place], [address] GFR/1.73 sq M.predicted among non-blacks MDRD (S/P/Bld) [Vol rate/Area] 23 mL/min/{1.73_m2} Low >60 [facility] Comment on above: Result Comment: mL/m in/1.73m2 CKD-EPI Creatinine Equation (2020) Performed By: #### L 500.2500 ####[facility] [address] [place], [address] Glucose [Mass/Vol] 164 mg/dL High 70-99 [facility] Comment on above: Performed By: #### L 500.2500 ####[facility] [address] [place], [address] Potassium [Moles/Vol] 3.2 mmol/L Low 3.3-5.1 [facility] Comment on above: Result Comment: Hemo lysis present, Results??could be affected.?? Performed By: #### L 500.2500 ####[facility] [address] [place], [address] Sodium [Moles/Vol] 138 mmol/L Normal 133-145 [facility] Comment on above: Performed By: #### L 500.2500 ####[facility] [address] [place], [address] Urea nitrogen [Mass/Vol] 20 mg/dL High 4-19 [facility] Comment on above: Performed By: #### L 500.2500 ####[facility] [address] [place], [address] Carbon dioxide, total [Moles /volume] in Central venous bloodOrdered By: Shivani Mcrae on 05-20-2025 CO2 [Moles/Vol] 27.7 mmol/L 21.0-32.0 [facility] Chloride assayOrdered By: Wesley Mcrae on 05-20-2025 Chloride [Moles/Vol] 100 mmol/L 98-108 [facility] Emergency Department Summary on 05-20-2025 Emergency Department Summary Normal [facility] Glomerular filtration rate ( GFR) estimation/1.73 sq m using serum, plasma, or whole bOrdered By: Shivani Mcrae on 05-20-2025 GFR/1.73 sq M.predicted among non-blacks MDRD (S/P/Bld) [Vol rate/Area] 23 mL/min/{1.73_m2} Low >60 [facility] Comment on above: mL/min/1.73m2 CKD-EP I Creatinine Equation (2020) Potassium measurement (mass/ volume)Ordered By: Shivani Mcrae on 05-20-2025 Potassium (Unsp spec) [Mass/Vol] 3.2 mmol/L Low 3.3-5.1 [facility] Comment on above: Hemolysis present, R esults could be affected. Serum creatinine measurement (mass/volume)Ordered By: Shivani Mcrae on 05-20-2025 Creatinine [Mass/Vol] 2.33 mg/dL High 0.70-1.20 [facility] Serum glucose measurement (m ass/volume)Ordered By: Shivani Mcrae on 05-20-2025 Glucose [Mass/Vol] 164 mg/dL High 70-99 [facility] Serum or plasma calcium lesly urement (mass/volume)Ordered By: Shivani Mcrae on 05-20-2025 Calcium [Mass/Vol] 7.9 mg/dL 7.6-11.0 [facility] Serum or plasma urea nitroge n measurement (mass/volume)Ordered By: Shivani Mcrae on 05-20-2025 Urea nitrogen [Mass/Vol] 20 mg/dL High 4-19 [facility] Sodium levelOrdered By: Juan Mcrae on 05-20-2025 Sodium [Moles/Vol] 138 mmol/L 133-145 [facility] Pulmonary Visit Reporton Pulmonary Visit Report Normal [facility] Abdomen/Pelvis W IV Cont ONL Yon 05-08-2025 Abdomen/Pelvis W IV Cont ONLY Normal [facility] Absolute lymphocyte countOrd ered By: Justin Parisi on 05-08-2025 Lymphocytes Auto (Unsp spec) [#/Vol] 1.62 10*3/uL 0.83-4.51 [facility] Absolute neutrophil countOrd ered By: Justin Parisi on 05-08-2025 Neutrophils (Bld) [#/Vol] 2.9 10*3/uL 2.0-7.7 [facility] Anion gap in Serum or Plasma Ordered By: Justin Parisi on 05-08-2025 Anion gap [Moles/Vol] 11 mmol/L 5-15 [facility] Automated lymphocyte count a s percentage of total leukocytesOrdered By: Justin Parisi on 05-08-2025 Lymphocytes/100 WBC Auto (Unsp spec) 27.5 % 19-41 [facility] BUN/creatinine ratioOrdered By: Justin Isak on 05-08-2025 Urea nitrogen/Creatinine [Mass ratio] 8.8 mg/mg Low 10-20 [facility] Basophil percentageOrdered B y: Justin Parisi on 05-08-2025 Basophils/100 WBC (Bld) 0.8 % 0-1 [facility] Beta-Hydroxbytyrateon 2024 BETA-HYDROXYBUT 0.4 mmol/L High 0.0-0.3 [facility] Comment on above: Performed By: #### L 501.6901 ####[facility] [address] [place], [address] Beta-hydroxybutyrateOrdered By: [facility] on 05-08-2025 Beta hydroxybutyrate [Mass/Vol] 0.4 mmol/L High 0.0-0.3 [facility] Bilirubin Test strip Ql (U)O rdered By: Justinmarine CamposEugenio on 05-08-2025 Bilirubin Ql (U) Negative Negative [facility] Bilirubin, totalOrdered By: [facility] Hospital[facility]ia[facility]ugen[facility] on 05-08-2025 Bilirubin [Mass/Vol] 0.30 mg/dL 0.00-1.30 [facility] CBC W/Diff, Automatedon 070 Absolute Lymph 1.62 X10 3/uL Normal 0.83-4.51 [facility] Comment on above: Performed By: #### L 100.0100, L501.2450, L501.5200, L500.4050 ####[facility] [address] [place], [address] Absolute Neut 2.9 X10 3/uL Normal 2.0-7.7 [facility] Comment on above: Performed By: #### L 100.0100, L501.2450, L501.5200, L500.4050 ####[facility] [address] [place], [address] Basophils/100 WBC (Bld) 0.8 % Normal 0-1 [facility] Comment on above: Performed By: #### L 100.0100, L501.2450, L501.5200, L500.4050 ####[facility] [address] [place], [address] Eosinophils/100 WBC (Bld) 15.1 % High 0-5 [facility] Comment on above: Performed By: #### L 100.0100, L501.2450, L501.5200, L500.4050 ####[facility] [address] [place], [address] Erythrocyte distribution width (RBC) [Ratio] 13.8 % Normal 11.6-14.6 [facility] Comment on above: Performed By: #### L 100.0100, L501.2450, L501.5200, L500.4050 ####[facility] [address] [place], [address] Hematocrit (Bld) [Volume fraction] 37.2 % Normal 37-47 [facility] Comment on above: Performed By: #### L 100.0100, L501.2450, L501.5200, L500.4050 ####[facility] [address] [place], [address] Hemoglobin (Bld) [Mass/Vol] 11.2 g/dL Low 12.0-15.0 [facility] Comment on above: Performed By: #### L 100.0100, L501.2450, L501.5200, L500.4050 ####[facility] [address] [place], [address] IG% 0.200 Normal 0.0-0.9 [facility] Comment on above: Result Comment: IG% - Immature Granulocytes (promyelocytes, myelocytes andmetamyelocytes) > 1% indicates that a LEFT SHIFT is Present. Performed By: #### L 100.0100, L501.2450, L501.5200, L500.4050 ####[facility] [address] [place], [address] Lymphocytes/100 WBC (Bld) 27.5 % Normal 19-41 [facility] Comment on above: Performed By: #### L 100.0100, L501.2450, L501.5200, L500.4050 ####[facility] [address] [place], [address] MCH (RBC) [Entitic mass] 28.1 pg Normal 27.0-32.0 [facility] Comment on above: Performed By: #### L 100.0100, L501.2450, L501.5200, L500.4050 ####[facility] [address] [place], [address] MCHC (RBC) [Mass/Vol] 30.1 g/dL Low 32-36 [facility] Comment on above: Performed By: #### L 100.0100, L501.2450, L501.5200, L500.4050 ####[facility] [address] [place], [address] MCV (RBC) [Entitic vol] 93.2 fL Normal 81-99 [facility] Comment on above: Performed By: #### L 100.0100, L501.2450, L501.5200, L500.4050 ####[facility] [address] [place], [address] Monocytes/100 WBC (Bld) 7.1 % Normal 0-10 [facility] Comment on above: Performed By: #### L 100.0100, L501.2450, L501.5200, L500.4050 ####[facility] [address] [place], [address] Neutrophils/100 WBC (Bld) 49.3 % Normal 47-70 [facility] Comment on above: Performed By: #### L 100.0100, L501.2450, L501.5200, L500.4050 ####[facility] [address] [place], [address] Nucleated RBC (Bld) [#/Vol] 0 10*3/uL Normal 0-5 [facility] Comment on above: Performed By: #### L 100.0100, L501.2450, L501.5200, L500.4050 ####[facility] [address] [place], [address] Platelet mean volume (Bld) [Entitic vol] 9.9 fL Normal 6.2-12.0 [facility] Comment on above: Performed By: #### L 100.0100, L501.2450, L501.5200, L500.4050 ####[facility] [address] [place], [address] Platelets (Bld) [#/Vol] 154 10*3/uL Normal 150-450 [facility] Comment on above: Performed By: #### L 100.0100, L501.2450, L501.5200, L500.4050 ####[facility] [address] [place], [address] RBC (Bld) [#/Vol] 3.99 10*6/uL Low 4.2-5.4 [facility] Comment on above: Performed By: #### L 100.0100, L501.2450, L501.5200, L500.4050 ####[facility] [address] [place], [address] RDW SD 47.4 fl High 35.1-43.9 [facility] Comment on above: Performed By: #### L 100.0100, L501.2450, L501.5200, L500.4050 ####[facility] [address] [place], [address] WBC (Bld) [#/Vol] 5.9 10*3/uL Normal 4.4-11.0 [facility] Comment on above: Performed By: #### L 100.0100, L501.2450, L501.5200, L500.4050 ####[facility] [address] [place], [address] CO2 (BldV) [Moles/Vol]Ordere d By: Justin Parisi on 05-08-2025 CO2 [Moles/Vol] 37 mmol/L High 23-33 [facility] Carbon dioxide, total [Moles /volume] in Central venous bloodOrdered By: Justin Parisi on 05-08-2025 CO2 [Moles/Vol] 28.6 mmol/L 21.0-32.0 [facility] Chest PA and Lateralon 05-08 Chest PA and Lateral Normal [facility] Chloride assayOrdered By: Kwadwo Parisi on 05-08-2025 Chloride [Moles/Vol] 102 mmol/L 98-108 [facility] Comprehensive Metabolic Prof ilon 05-08-2025 Albumin [Mass/Vol] 3.6 g/dL Normal 3.4-4.8 [facility] Comment on above: Performed By: #### L 100.0100, L501.2450, L501.5200, L500.4050 ####[facility] [address] [place], [address] Albumin/Globulin [Mass ratio] 1.3 {ratio} Normal 0.9-2.4 [facility] Comment on above: Performed By: #### L 100.0100, L501.2450, L501.5200, L500.4050 ####[facility] [address] [place], [address] ALK PHOS 63 U/L Normal 35-104 [facility] Comment on above: Performed By: #### L 100.0100, L501.2450, L501.5200, L500.4050 ####[facility] [address] [place], [address] ALT [Catalytic activity/Vol] 9 U/L Normal <=34 [facility] Comment on above: Performed By: #### L 100.0100, L501.2450, L501.5200, L500.4050 ####[facility] [address] [place], [address] AST [Catalytic activity/Vol] 22 U/L Normal <=31 [facility] Comment on above: Result Comment: Hemo lysis present, Results??could be affected.?? Performed By: #### L 100.0100, L501.2450, L501.5200, L500.4050 ####[facility] [address] [place], [address] Bilirubin [Mass/Vol] 0.30 mg/dL Normal 0.00-1.30 [facility] Comment on above: Performed By: #### L 100.0100, L501.2450, L501.5200, L500.4050 ####[facility] [address] [place], [address] BUN/CRE 8.8 RATIO Low 10-20 [facility] Comment on above: Performed By: #### L 100.0100, L501.2450, L501.5200, L500.4050 ####[facility] [address] [place], [address] Calcium [Mass/Vol] 8.3 mg/dL Normal 7.6-11.0 [facility] Comment on above: Performed By: #### L 100.0100, L501.2450, L501.5200, L500.4050 ####[facility] [address] [place], [address] Chloride [Moles/Vol] 102 mmol/L Normal 98-108 [facility] Comment on above: Performed By: #### L 100.0100, L501.2450, L501.5200, L500.4050 ####[facility] [address] [place], [address] CO2 [Moles/Vol] 28.6 mmol/L Normal 21.0-32.0 [facility] Comment on above: Performed By: #### L 100.0100, L501.2450, L501.5200, L500.4050 ####[facility] [address] [place], [address] Creatinine [Mass/Vol] 3.92 mg/dL High 0.70-1.20 [facility] Comment on above: Performed By: #### L 100.0100, L501.2450, L501.5200, L500.4050 ####[facility] [address] [place], [address] ECRCL 10.39 ml/min Low 50-250 [facility] Comment on above: Performed By: #### L 100.0100, L501.2450, L501.5200, L500.4050 ####[facility] [address] [place], [address] GAP 11 Normal 5-15 [facility] Comment on above: Performed By: #### L 100.0100, L501.2450, L501.5200, L500.4050 ####[facility] [address] [place], [address] GFR/1.73 sq M.predicted among non-blacks MDRD (S/P/Bld) [Vol rate/Area] 12 mL/min/{1.73_m2} Low >60 [facility] Comment on above: Result Comment: mL/m in/1.73m2 CKD-EPI Creatinine Equation (2020) Performed By: #### L 100.0100, L501.2450, L501.5200, L500.4050 ####[facility] [address] [place], [address] Globulin (S) [Mass/Vol] 2.7 g/dL Normal 2.2-4.2 [facility] Comment on above: Performed By: #### L 100.0100, L501.2450, L501.5200, L500.4050 ####[facility] [address] [place], [address] Glucose [Mass/Vol] 113 mg/dL High 70-99 [facility] Comment on above: Performed By: #### L 100.0100, L501.2450, L501.5200, L500.4050 ####[facility] [address] [place], [address] Potassium [Moles/Vol] 3.4 mmol/L Normal 3.3-5.1 [facility] Comment on above: Result Comment: Hemo lysis present, Results??could be affected.?? Performed By: #### L 100.0100, L501.2450, L501.5200, L500.4050 ####[facility] [address] [place], [address] Sodium [Moles/Vol] 141 mmol/L Normal 133-145 [facility] Comment on above: Performed By: #### L 100.0100, L501.2450, L501.5200, L500.4050 ####[facility] [address] [place], [address] T PROT 6.2 g/dL Normal 5.9-8.4 [facility] Comment on above: Performed By: #### L 100.0100, L501.2450, L501.5200, L500.4050 ####[facility] [address] [place], [address] Urea nitrogen [Mass/Vol] 34 mg/dL High 4-19 [facility] Comment on above: Performed By: #### L 100.0100, L501.2450, L501.5200, L500.4050 ####[facility] [address] [place], [address] Emergency Department Summary on 05-08-2025 Emergency Department Summary Normal [facility] Eosinophil percentageOrdered By: Justin Parisi on 05-08-2025 Eosinophils/100 WBC (Bld) 15.1 % High 0-5 [facility] Erythrocyte distribution wid th ratioOrdered By: [place] Isak on 05-08-2025 Erythrocyte distribution width (RBC) [Ratio] 13.8 % 11.6-14.6 [facility] Erythrocyte distribution wid th standard deviationOrdered By: Justin Andres Becker on 05-08-2025 Erythrocyte distribution width (RBC) [Ratio] 47.4 fl High 35.1-43.9 [facility] Glomerular filtration rate ( GFR) estimation/1.73 sq m using serum, plasma, or whole bOrdered By: Justin Parisi on 05-08-2025 GFR/1.73 sq M.predicted among non-blacks MDRD (S/P/Bld) [Vol rate/Area] 12 mL/min/{1.73_m2} Low >60 [facility] Comment on above: mL/min/1.73m2 CKD-EP I Creatinine Equation (2020) Hematocrit Auto (Bld) [Volum e fraction]Ordered By: Justin Parisi on 05-08-2025 Hematocrit (Bld) [Volume fraction] 37.2 % 37-47 [facility] Hemoglobin measurementOrdere d By: Justin Parisi on 05-08-2025 Hemoglobin (Bld) [Mass/Vol] 11.2 g/dL Low 12.0-15.0 [facility] Immature granulocytes/100 WB C Auto (Bld)Ordered By: Justin Parisi on 05-08-2025 Immature granulocytes/100 WBC (Bld) 0.200 % 0.0-0.9 [facility] Comment on above: IG% - Immature Granu locytes (promyelocytes, myelocytes and metamyelocytes) > 1% indicates that a LEFT SHIFT is Present. Ketones Test strip Ql (U)Ord ered By: Justin Parisi on 05-08-2025 Ketones Ql (U) Negative Negative [facility] Laboratory - Chemistry and C hemistry - challengeOrdered By: Justin Parisi on 05-08-2025 AST [Catalytic activity/Vol] 22 U/L <32 [facility] Comment on above: Hemolysis present, R esults could be affected. Lipaseon 05-08-2025 Lipase [Catalytic activity/Vol] 12 U/L Low 13-75 [facility] Comment on above: Result Comment: Ry adhikari note:LIPASE revised reference range effective 23.New Lipase methodology. Expected to produce lower valuesthan the previous assay method.NEW Reference Range: 13 - 75 U/L Performed By: #### L 100.0100, L501.2450, L501.5200, L500.4050 ####[facility] [address] [place], [place], [id number] Lipase measurementOrdered By : [facility] on 05-08-2025 Lipase [Catalytic activity/Vol] 12 U/L Low 13-75 [facility] Comment on above: Please note:LIPASE r evised reference range effective 23. New Lipase methodology. Expected to produce lower values than the previous assay method. NEW Reference Range: 13 - 75 U/L MCV (mean corpuscular volume ) determinationOrdered By: Justin Parisi on 05-08-2025 MCV (RBC) [Entitic vol] 93.2 fL 81-99 [facility] Magnesiumon 05-08-2025 Magnesium [Mass/Vol] 2.1 mg/dL Normal 1.5-2.2 [facility] Comment on above: Performed By: #### L 100.0100, L501.2450, L501.5200, L500.4050 ####[facility] [address] [place], [address] Magnesium measurement (mass/ volume)Ordered By: Justin Parisi on 05-08-2025 Magnesium (Unsp spec) [Mass/Vol] 2.1 mg/dL 1.5-2.2 [facility] Mean corpuscular hemoglobin (MCH) determinationOrdered By: Justin Parisi on 05-08-2025 MCH (RBC) [Entitic mass] 28.1 pg 27.0-32.0 [facility] Mean corpuscular hemoglobin concentration (MCHC) determinationOrdered By: Jsutin Parisi on 05-08-2025 MCHC (RBC) [Mass/Vol] 30.1 g/dL Low 32-36 [facility] Mean platelet volume determi nationOrdered By: Justin Parisi on 05-08-2025 Platelet mean volume (Bld) [Entitic vol] 9.9 fL 6.2-12.0 [facility] Microscopic analysis of urin e for red blood cells (RBC)Ordered By: Justin Parisi on 05-08-2025 Microscopic analysis of urine for red blood cells (RBC) 0 SEEN /hpf 0-5 [facility] Monocyte percentageOrdered B y: Justin Parisi on 05-08-2025 Monocytes/100 WBC (Bld) 7.1 % 0-10 [facility] Mucus LM Ql (Urine sed)Order ed By: Justin Parisi on 05-08-2025 Mucus Ql (Urine sed) 0 SEEN /hpf [facility] Neutrophil percentageOrdered By: Justin Parisi on 05-08-2025 Neutrophils/100 WBC (Bld) 49.3 % 47-70 [facility] Nitrite Test strip Ql (U)Ord ered By: Justin Parisi on 05-08-2025 Nitrite Ql (U) Negative Negative [facility] No Panel InformationOrdered By: Justin Parisi on 05-08-2025 Blood Gas Sample Site Not entered [facility] Blood Gas Specimen Type ROHIT [facility] Oxygen Delivery Device Not entered [facility] Nucleated red blood cell per centageOrdered By: Justin Parisi on 05-08-2025 Nucleated RBC/100 WBC (Bld) [Ratio] 0 % 0-5 [facility] Platelet countOrdered By: Kwadwo Parisi on 05-08-2025 Platelets (Bld) [#/Vol] 154 10*3/uL 150-450 [facility] Potassium measurement (mass/ volume)Ordered By: Justin Parisi on 05-08-2025 Potassium (Unsp spec) [Mass/Vol] 3.4 mmol/L 3.3-5.1 [facility] Comment on above: Hemolysis present, R esults could be affected. Protein Test strip Ql (U)Ord ered By: Justin Parisi on 05-08-2025 Protein Ql (U) 500 mg/dl High Negative [facility] RBC Auto (Bld) [#/Vol]Ordere d By: Justin Parisi on 05-08-2025 RBC (Bld) [#/Vol] 3.99 10*6/uL Low 4.2-5.4 [facility] Serum creatinine measurement (mass/volume)Ordered By: Justin Parisi on 05-08-2025 Creatinine [Mass/Vol] 3.92 mg/dL High 0.70-1.20 [facility] Serum globulin measurementOr dered By: Justin Parisi on 05-08-2025 Globulin (S) [Mass/Vol] 2.7 g/dL 2.2-4.2 [facility] Serum glucose measurement (m ass/volume)Ordered By: Justin Parisi on 05-08-2025 Glucose [Mass/Vol] 113 mg/dL High 70-99 [facility] Serum or plasma alanine martinez otransferase (ALT) measurementOrdered By: Jsutin Parisi on 05-08-2025 ALT [Catalytic activity/Vol] 9 U/L <35 [facility] Serum or plasma albumin lesly urement (mass/volume)Ordered By: Justin Becker on 05-08-2025 Albumin [Mass/Vol] 3.6 g/dL 3.4-4.8 [facility] Serum or plasma albumin/glob ulin mass ratioOrdered By: Justin Parisi on 05-08-2025 Albumin/Globulin [Mass ratio] 1.3 {ratio} 0.9-2.4 [facility] Serum or plasma alkaline william sphatase measurementOrdered By: Justin Parisi on 05-08-2025 ALP [Catalytic activity/Vol] 63 U/L 35-104 [facility] Serum or plasma calcium lesly urement (mass/volume)Ordered By: Justin Becker on 05-08-2025 Calcium [Mass/Vol] 8.3 mg/dL 7.6-11.0 [facility] Serum or plasma urea nitroge n measurement (mass/volume)Ordered By: Justin Parisi on 05-08-2025 Urea nitrogen [Mass/Vol] 34 mg/dL High 4-19 [facility] Sodium levelOrdered By: Chetan Parisi on 05-08-2025 Sodium [Moles/Vol] 141 mmol/L 133-145 [facility] Squamous epithelial cells de tection in urine sediment by light microscopyOrdered By: Justin Parisi on 05-08-2025 Epithelial cells.squamous LM Ql (Urine sed) 0-5 SEEN /hpf - [facility] Total proteinOrdered By: Vega Parisi on 05-08-2025 Protein [Mass/Vol] 6.2 g/dL 5.9-8.4 [facility] Urinalysis, Completeon 05-08 EPI,SQUAMOUS 0-5 SEEN Normal 5-10 [facility] Comment on above: Order Comment: BONNIE TER SPECIMEN Performed By: #### L 400.0001 ####[facility] [address] [place], [address] BACTERIA 0 SEEN Normal None Seen [facility] Comment on above: Order Comment: BONNIE TER SPECIMEN Performed By: #### L 400.0001 ####[facility] [address] [place], [address] Mucus Ql (Urine sed) 0 SEEN Normal [facility] Comment on above: Order Comment: BONNIE TER SPECIMEN Performed By: #### L 400.0001 ####[facility] [address] [place], [address] RBC 0 SEEN Normal 0-5 [facility] Comment on above: Order Comment: BONNIE TER SPECIMEN Performed By: #### L 400.0001 ####[facility] [address] [place], [address] WBC 0 SEEN Normal 0-5 [facility] Comment on above: Order Comment: BONNIE TER SPECIMEN Performed By: #### L 400.0001 ####[facility] [address] [place], [place], [address] Urine clarityOrdered By: Vega Parisi on 05-08-2025 Clarity (U) Clear Clear [facility] Urine color determinationOrd ered By: Justin Parisi on 05-08-2025 Color (U) Yellow Yellow [facility] Urine glucose detectionOrder ed By: uJstin Parisi on 05-08-2025 Glucose Ql (U) 50 mg/dl High Normal [facility] Urine leukocyte esterase det ection by dipstickOrdered By: Justin Parisi on 05-08-2025 Leukocyte esterase Test strip Ql (U) Negative Negative [facility] Urine pHOrdered By: Justin Parekh on 05-08-2025 pH (U) 6.0 [pH] 5.0 - 8.0 [facility] Urine sediment bacteria coun t by microscopy (number/high power field)Ordered By: Justin Parisi on 05-08-2025 Bacteria LM.HPF (Urine sed) [#/Area] 0 /[HPF] None Seen [facility] Urine specific gravity measu rementOrdered By: Justin Parisi on 05-08-2025 Specific gravity (U) [Rel density] 1.020 1.002-1.030 [facility] [facility] [place] Urine urobilinogen measureme ntOrdered By: Justin Parisi on 05-08-2025 Urobilinogen Ql (U) Normal mg/dl Normal [facility] Venous Blood Gason 5 Blood Gas Type ROHIT Normal [facility] Comment on above: Performed By: #### L 900.0810 ####[facility] [address] [place], [address] CO2 [Moles/Vol] 37 mmol/L High 23-33 [facility] Comment on above: Performed By: #### L 8999.0810 ####[facility] [address] [place], [address] FI02 2.0 Normal [facility] Comment on above: Performed By: #### L 900.0810 ####[facility] [address] [place], [address] HCO3 (Bld) [Moles/Vol] 35 mmol/L High 22-26 [facility] Comment on above: Performed By: #### L 900.0810 ####[facility] [address] [place], [address] O2 Delivery Dev Not entered Normal [facility] Comment on above: Performed By: #### L 9000.0810 ####[facility] [address] [place], [address] SITE Not entered [facility] Comment on above: Performed By: #### L 900.0810 ####[facility] [address] [place], [address] VBG BE 8 mmol/L High -1.0-3.5 [facility] Comment on above: Performed By: #### L 900.0810 ####[facility] [address] [place], [place], [id number] VBG pCO2 67.0 mmHg High 41-51 [facility] Comment on above: Performed By: #### L 9000.0810 ####[facility] [address] [place], [place], [id number] VBG pH 7.32 Normal 7.32-7.42 [facility] Comment on above: Performed By: #### L 9000.0810 ####[facility] [address] [place], [address] VBG PO2 27 mmHg Normal 25-40 [facility] Comment on above: Performed By: #### L 9000.0810 ####[facility] [address] [place], [place], [id number] VBG SO2 44 Low 50-70 [facility] Comment on above: Performed By: #### L 9000.0810 ####[facility] [address] [place], [place], [id number] Venous blood base excess allyn surementOrdered By: Justin Parisi on 05-08-2025 Base excess Calc (BldV) [Moles/Vol] 8 mmol/L High -1.0-3.5 [facility] Venous blood bicarbonate allyn surementOrdered By: Justin Parisi on 05-08-2025 HCO3 (Bld) [Moles/Vol] 35 mmol/L High 22-26 [facility] Venous blood oxygen saturati on measurementOrdered By: Justin Parisi on 05-08-2025 Oxygen saturation in Blood 44 % Low 50-70 [facility] Venous blood pH measurementO rdered By: Justin Parisi on 05-08-2025 pH (BldV) 7.32 [pH] 7.32-7.42 [facility] Venous blood partial pressur e of carbon dioxide measurementOrdered By: Justin Parisi on 05-08-2025 CO2 (BldV) [Partial pressure] 67.0 mm[Hg] High 41-51 [facility] Venous blood partial pressur e of oxygen measurementOrdered By: Justin Becker on 05-08-2025 Oxygen (BldV) [Partial pressure] 27 mm[Hg] 25-40 [facility] White blood cell (WBC) count Ordered By: Justin Parisi on 05-08-2025 WBC (Bld) [#/Vol] 5.9 10*3/uL 4.4-11.0 [facility] White blood cell countOrdere d By: Justin Parisi on 05-08-2025 White blood cell count 0 SEEN /hpf 0-5 [facility] Potassiumon 04-11-2025 Potassium [Moles/Vol] 3.7 mmol/L Normal 3.3-5.1 [facility] Comment on above: Performed By: #### L 501.5600 ####[facility] [address] [place], [place], [id number] Potassium measurement (mass/ volume)Ordered By: Christy Huerta on 04-11-2025 Potassium (Unsp spec) [Mass/Vol] 3.7 mmol/L 3.3-5.1 [facility] 12 Lead EKGon 04-09-2025 12 Lead EKG Normal [facility] Anion gap in Serum or Plasma Ordered By: Milind Heath on 04-09-2025 Anion gap [Moles/Vol] 8 mmol/L 5-15 [facility] BUN/creatinine ratioOrdered By: Milind Heath on 04-09-2025 Urea nitrogen/Creatinine [Mass ratio] 5.6 mg/mg Low 10-20 [facility] Basic Metabolic Profile (BMP )on 04-09-2025 BUN/CRE 5.6 RATIO Low 10-20 [facility] Comment on above: Performed By: #### L 500.2500, L501.5200 ####[facility] [address] [place], [place], [id number] Calcium [Mass/Vol] 9.2 mg/dL Normal 7.6-11.0 [facility] Comment on above: Performed By: #### L 500.2500, L501.5200 ####[facility] [address] [place], [address] Chloride [Moles/Vol] 102 mmol/L Normal 98-108 [facility] Comment on above: Performed By: #### L 500.2500, L501.5200 ####[facility] [address] [place], [address] CO2 [Moles/Vol] 31.4 mmol/L Normal 21.0-32.0 [facility] Comment on above: Performed By: #### L 500.2500, L501.5200 ####[facility] [address] [place], [address] Creatinine [Mass/Vol] 3.39 mg/dL High 0.70-1.20 [facility] Comment on above: Performed By: #### L 500.2500, L501.5200 ####[facility] [address] [place], [address] GAP 8 Normal 5-15 [facility] Comment on above: Performed By: #### L 500.2500, L501.5200 ####[facility] [address] [place], [address] GFR/1.73 sq M.predicted among non-blacks MDRD (S/P/Bld) [Vol rate/Area] 14 mL/min/{1.73_m2} Low >60 [facility] Comment on above: Result Comment: mL/m in/1.73m2 CKD-EPI Creatinine Equation (2020) Performed By: #### L 500.2500, L501.5200 ####[facility] [address] [place], [address] Glucose [Mass/Vol] 151 mg/dL High 70-99 [facility] Comment on above: Performed By: #### L 500.2500, L501.5200 ####[facility] [address] [place], [address] Potassium [Moles/Vol] 2.8 mmol/L Low 3.3-5.1 [facility] Comment on above: Result Comment: Hemo lysis present, Results??could be affected.?? Performed By: #### L 500.2500, L501.5200 ####[facility] [address] [place], [address] Sodium [Moles/Vol] 142 mmol/L Normal 133-145 [facility] Comment on above: Performed By: #### L 500.2500, L501.5200 ####[facility] [address] [place], [address] Urea nitrogen [Mass/Vol] 19 mg/dL Normal 4-19 [facility] Comment on above: Performed By: #### L 500.2500, L501.5200 ####[facility] [address] [place], [address] Carbon dioxide, total [Moles /volume] in Central venous bloodOrdered By: Milind Heath on 04-09-2025 CO2 [Moles/Vol] 31.4 mmol/L 21.0-32.0 [facility] Chloride assayOrdered By: Ug o Heath on 04-09-2025 Chloride [Moles/Vol] 102 mmol/L 98-108 [facility] Emergency Department Summary on 04-09-2025 Emergency Department Summary Normal [facility] Glomerular filtration rate ( GFR) estimation/1.73 sq m using serum, plasma, or whole bOrdered By: Milind Heath on 04-09-2025 GFR/1.73 sq M.predicted among non-blacks MDRD (S/P/Bld) [Vol rate/Area] 14 mL/min/{1.73_m2} Low >60 [facility] Comment on above: mL/min/1.73m2 CKD-EP I Creatinine Equation (2020) Magnesiumon 04-09-2025 Magnesium [Mass/Vol] 2.2 mg/dL Normal 1.5-2.2 [facility] Comment on above: Performed By: #### L 500.2500, L501.5200 ####[facility] [address] [facility] [place], [address] Magnesium measurement (mass/ volume)Ordered By: Milind Heath on 04-09-2025 Magnesium (Unsp spec) [Mass/Vol] 2.2 mg/dL 1.5-2.2 [facility] Potassiumon 04-09-2025 Potassium [Moles/Vol] 2.3 mmol/L Invalid Interpretation Code 3.3-5.1 [facility] Comment on above: Result Comment: Crit ical Result(s) Called at:1140 by:??August Ibanez to Dr. Alvarez. Results read back by same. Performed By: #### L 501.5600 ####[facility] [address] [facility] [place], [address] Potassium measurement (mass/ volume)Ordered By: Milind Heath on 04-09-2025 Potassium (Unsp spec) [Mass/Vol] 2.8 mmol/L Low 3.3-5.1 [facility] Comment on above: Hemolysis present, R esults could be affected. Potassium measurement (mass/ volume)Ordered By: Christy Huerta on 04-09-2025 Potassium (Unsp spec) [Mass/Vol] 2.3 mmol/L Low 3.3-5.1 [facility] Comment on above: Critical Result(s) C alled at:1140 by: August Ibanez to Dr. Sarah Huerta. Results read back by same. Serum creatinine measurement (mass/volume)Ordered By: Milind Heath on 04-09-2025 Creatinine [Mass/Vol] 3.39 mg/dL High 0.70-1.20 [facility] Serum glucose measurement (m ass/volume)Ordered By: Milindkyle Heath on 04-09-2025 Glucose [Mass/Vol] 151 mg/dL High 70-99 [facility] Serum or plasma calcium lesly urement (mass/volume)Ordered By: Milind Heath on 04-09-2025 Calcium [Mass/Vol] 9.2 mg/dL 7.6-11.0 [facility] Serum or plasma urea nitroge n measurement (mass/volume)Ordered By: Milind Heath on 04-09-2025 Urea nitrogen [Mass/Vol] 19 mg/dL 4- [facility] Sodium levelOrdered By: Milind Heath on 04-09-2025 Sodium [Moles/Vol] 142 mmol/L 133-145 [facility] Surgery Visit Reporton 03-22 Surgery Visit Report Normal [facility] Endocrinology Visit Reporton 01-27-2025 Endocrinology Visit Report Normal [facility] Chest without Contraston Chest without Contrast Normal [facility] Surgery Visit Reporton 01-11 Surgery Visit Report Normal [facility] Basic Metabolic Profile (BMP )on 01-07-2025 BUN Normal - [facility] Comment on above: Result Comment: Canc elled via OM: Order cancelled - Patient discharged Performed By: #### L 100.0100, L500.2500 ####[facility] [address] [place], [address] BUN/CRE Normal 10-20 [facility] Comment on above: Result Comment: Canc elled via OM: Order cancelled - Patient discharged Performed By: #### L 100.0100, L500.2500 ####[facility] [address] [place], [address] Calcium Normal 7.6-11.0 [facility] Comment on above: Result Comment: Canc elled via OM: Order cancelled - Patient discharged Performed By: #### L 100.0100, L500.2500 ####[facility] [address] [place], [address] CL Normal 98-108 [facility] Comment on above: Result Comment: Canc elled via OM: Order cancelled - Patient discharged Performed By: #### L 100.0100, L500.2500 ####[facility] [address] [place], [address] CO2 Normal 21.0-32.0 [facility] Comment on above: Result Comment: Canc elled via OM: Order cancelled - Patient discharged Performed By: #### L 100.0100, L500.2500 ####[facility] [address] [place], [address] CREAT,SERUM Normal 0.70-1.20 [facility] Comment on above: Result Comment: Canc elled via OM: Order cancelled - Patient discharged Performed By: #### L 100.0100, L500.2500 ####[facility] [address] [place], [address] eGFR Normal >60 [facility] Comment on above: Result Comment: Canc elled via OM: Order cancelled - Patient discharged Performed By: #### L 100.0100, L500.2500 ####[facility] [address] [place], [address] GAP Normal 5-15 [facility] Comment on above: Result Comment: Canc elled via OM: Order cancelled - Patient discharged Performed By: #### L 100.0100, L500.2500 ####[facility] [address] [place], [address] GLU Normal 70-99 [facility] Comment on above: Result Comment: Canc elled via OM: Order cancelled - Patient discharged Performed By: #### L 100.0100, L500.2500 ####[facility] [address] [place], [address] Potassium Normal 3.3-5.1 [facility] Comment on above: Result Comment: Canc elled via OM: Order cancelled - Patient discharged Performed By: #### L 100.0100, L500.2500 ####[facility] [address] [place], [address] Basic Metabolic Profile (BMP) Normal 133-145 [facility] Comment on above: Result Comment: Canc elled via OM: Order cancelled - Patient discharged Performed By: #### L 100.0100, L500.2500 ####[facility] [address] [place], [address] CBC W/Diff, Automatedon 03-0 -2024 Absolute Neut Normal 2.0-7.7 [facility] Comment on above: Result Comment: Canc elled via OM: Order cancelled - Patient discharged Performed By: #### L 100.0100, L500.2500 ####[facility] [address] [place], [address] HCT Normal 37-47 [facility] Comment on above: Result Comment: Canc elled via OM: Order cancelled - Patient discharged Performed By: #### L 100.0100, L500.2500 ####[facility] [address] [place], [address] HGB Normal 12.0-15.0 [facility] Comment on above: Result Comment: Canc elled via OM: Order cancelled - Patient discharged Performed By: #### L 100.0100, L500.2500 ####[facility] [address] [place], [address] MCH Normal 27.0-32.0 [facility] Comment on above: Result Comment: Canc elled via OM: Order cancelled - Patient discharged Performed By: #### L 100.0100, L500.2500 ####[facility] [address] [place], [address] MCHC Normal 32-36 [facility] Comment on above: Result Comment: Canc elled via OM: Order cancelled - Patient discharged Performed By: #### L 100.0100, L500.2500 ####[facility] [address] [place], [address] MCV Normal 81-99 [facility] Comment on above: Result Comment: Canc elled via OM: Order cancelled - Patient discharged Performed By: #### L 100.0100, L500.2500 ####[facility] [address] [place], [address] NEUT% Normal 47-70 [facility] Comment on above: Result Comment: Canc elled via OM: Order cancelled - Patient discharged Performed By: #### L 100.0100, L500.2500 ####[facility] [address] [place], [address] PLT Normal 150-450 [facility] Comment on above: Result Comment: Canc elled via OM: Order cancelled - Patient discharged Performed By: #### L 100.0100, L500.2500 ####[facility] [address] [place], [address] RBC Normal 4.2-5.4 [facility] Comment on above: Result Comment: Canc elled via OM: Order cancelled - Patient discharged Performed By: #### L 100.0100, L500.2500 ####[facility] [address] [place], [address] RDW CV Normal 11.6-14.6 [facility] Comment on above: Result Comment: Canc elled via OM: Order cancelled - Patient discharged Performed By: #### L 100.0100, L500.2500 ####[facility] [address] [place], [address] RDW SD Normal 35.1-43.9 [facility] Comment on above: Result Comment: Canc elled via OM: Order cancelled - Patient discharged Performed By: #### L 100.0100, L500.2500 ####[facility] [address] [place], [address] WBC Normal 4.4-11.0 [facility] Comment on above: Result Comment: Canc elled via OM: Order cancelled - Patient discharged Performed By: #### L 100.0100, L500.2500 ####[facility] [address] [place], [address] Absolute lymphocyte countOrd ered By: He Cat on 01-06-2025 Lymphocytes Auto (Unsp spec) [#/Vol] 0.66 10*3/uL Low 0.83-4.51 [facility] Absolute neutrophil countOrd ered By: He Cat on 01-06-2025 Absolute neutrophil count 9.7 X10^3/uL High 2.0-7.7 [facility] Anion gap [Moles/Vol]Ordered By: He Cat on 01-06-2025 Anion gap in Serum or Plasma 12 5-15 [facility] Anion gap in Serum or Plasma Ordered By: He Cat on 01-06-2025 Anion gap [Moles/Vol] 12 mmol/L - [facility] Automated lymphocyte count a s percentage of total leukocytesOrdered By: He Cat on 01-06-2025 Lymphocytes/100 WBC Auto (Unsp spec) 6.0 % Low 19-41 [facility] BUN/creatinine ratioOrdered By: He Cat on 01-06-2025 Urea nitrogen/Creatinine [Mass ratio] 13.0 mg/mg 10- [facility] BUN/creatinine ratio 13.0 RATIO 10-20 [facility] Basic Metabolic Profile (BMP )on 01-06-2025 BUN/CRE 13.0 RATIO Normal 10-20 [facility] Comment on above: Performed By: #### L 500.2500, L100.0100 ####[facility] [address] [place], [address] Calcium [Mass/Vol] 8.9 mg/dL Normal 7.6-11.0 [facility] Comment on above: Performed By: #### L 500.2500, L100.0100 ####[facility] [address] [place], [address] Chloride [Moles/Vol] 101 mmol/L Normal 98-108 [facility] Comment on above: Performed By: #### L 500.2500, L100.0100 ####[facility] [address] [place], [address] CO2 [Moles/Vol] 21.1 mmol/L Normal 21.0-32.0 [facility] Comment on above: Performed By: #### L 500.2500, L100.0100 ####[facility] [address] [place], [address] Creatinine [Mass/Vol] 3.23 mg/dL High 0.70-1.20 [facility] Comment on above: Performed By: #### L 500.2500, L100.0100 ####[facility] [address] [place], [address] ECRCL 12.75 ml/min Low 50-250 [facility] Comment on above: Performed By: #### L 500.2500, L100.0100 ####[facility] [address] [place], [address] GAP 12 Normal 5-15 [facility] Comment on above: Performed By: #### L 500.2500, L100.0100 ####[facility] [address] [place], [address] GFR/1.73 sq M.predicted among non-blacks MDRD (S/P/Bld) [Vol rate/Area] 15 mL/min/{1.73_m2} Low >60 [facility] Comment on above: Result Comment: mL/m in/1.73m2 CKD-EPI Creatinine Equation (2020) Performed By: #### L 500.2500, L100.0100 ####[facility] [address] [place], [address] Glucose [Mass/Vol] 337 mg/dL High 70-99 [facility] Comment on above: Performed By: #### L 500.2500, L100.0100 ####[facility] [address] [place], [address] Potassium [Moles/Vol] 5.6 mmol/L High 3.3-5.1 [facility] Comment on above: Performed By: #### L 500.2500, L100.0100 ####[facility] [address] [place], [address] Sodium [Moles/Vol] 134 mmol/L Normal 133-145 [facility] Comment on above: Performed By: #### L 500.2500, L100.0100 ####[facility] [address] [place], [address] Urea nitrogen [Mass/Vol] 42 mg/dL High 4-19 [facility] Comment on above: Performed By: #### L 500.2500, L100.0100 ####[facility] [address] [place], [address] Basophil percentageOrdered B y: He Pradeep on 01-06-2025 Basophils/100 WBC (Bld) 0.1 % 0-1 [facility] Bedside Glucoseon 01-06-2025 FINGERSTICK GLU 374 mg/dL High 74-106 [facility] Comment on above: Result Comment: SHELLY GEMENT OF PATIENT CARE PER NURSING PROTOCOL Performed By: #### L 501.080 ####[facility] [address] [place], [address] FINGERSTICK GLU 309 mg/dL High 74-106 [facility] Comment on above: Result Comment: SHELLY GEMENT OF PATIENT CARE PER NURSING PROTOCOL Performed By: #### L 501.080 ####[facility] [address] [place], [address] CBC W/Diff, Automatedon Absolute Lymph 0.66 X10 3/uL Low 0.83-4.51 [facility] Comment on above: Performed By: #### L 500.2500, L100.0100 ####[facility] [address] [place], [address] Absolute Neut 9.7 X10 3/uL High 2.0-7.7 [facility] Comment on above: Performed By: #### L 500.2500, L100.0100 ####[facility] [address] [place], [address] Basophils/100 WBC (Bld) 0.1 % Normal 0-1 [facility] Comment on above: Performed By: #### L 500.2500, L100.0100 ####[facility] [address] [place], [address] Eosinophils/100 WBC (Bld) 0.1 % Normal 0-5 [facility] Comment on above: Performed By: #### L 500.2500, L100.0100 ####[facility] [address] [place], [address] Erythrocyte distribution width (RBC) [Ratio] 13.0 % Normal 11.6-14.6 [facility] Comment on above: Performed By: #### L 500.2500, L100.0100 ####[facility] [address] [place], [address] Hematocrit (Bld) [Volume fraction] 28.8 % Low 37-47 [facility] Comment on above: Performed By: #### L 500.2500, L100.0100 ####[facility] [address] [place], [address] Hemoglobin (Bld) [Mass/Vol] 9.1 g/dL Low 12.0-15.0 [facility] Comment on above: Performed By: #### L 500.2500, L100.0100 ####[facility] [address] [place], [address] IG% 1.000 High 0.0-0.9 [facility] Comment on above: Result Comment: IG% - Immature Granulocytes (promyelocytes, myelocytes andmetamyelocytes) > 1% indicates that a LEFT SHIFT is Present. Performed By: #### L 500.2500, L100.0100 ####[facility] [address] [place], [address] Lymphocytes/100 WBC (Bld) 6.0 % Low 19-41 [facility] Comment on above: Performed By: #### L 500.2500, L100.0100 ####[facility] [address] [place], [address] MCH (RBC) [Entitic mass] 30.4 pg Normal 27.0-32.0 [facility] Comment on above: Performed By: #### L 500.2500, L100.0100 ####[facility] [address] [place], [address] MCHC (RBC) [Mass/Vol] 31.6 g/dL Low 32-36 [facility] Comment on above: Performed By: #### L 500.2500, L100.0100 ####[facility] [facility] [address] [place], [address] MCV (RBC) [Entitic vol] 96.3 fL Normal 81-99 [facility] Comment on above: Performed By: #### L 500.2500, L100.0100 ####[facility] [address] [place], [address] Monocytes/100 WBC (Bld) 4.8 % Normal 0-10 [facility] Comment on above: Performed By: #### L 500.2500, L100.0100 ####[facility] [address] [place], [address] Neutrophils/100 WBC (Bld) 88.0 % High 47-70 [facility] Comment on above: Performed By: #### L 500.2500, L100.0100 ####[facility] [address] [facility] [place], [address] Nucleated RBC (Bld) [#/Vol] 0 10*3/uL Normal 0-5 [facility] Comment on above: Performed By: #### L 500.2500, L100.0100 ####[facility] [address] [place], [address] Platelet mean volume (Bld) [Entitic vol] 9.8 fL Normal 6.2-12.0 [facility] Comment on above: Performed By: #### L 500.2500, L100.0100 ####[facility] [address] [place], [address] Platelets (Bld) [#/Vol] 229 10*3/uL Normal 150-450 [facility] Comment on above: Performed By: #### L 500.2500, L100.0100 ####[facility] [address] [place], [address] RBC (Bld) [#/Vol] 2.99 10*6/uL Low 4.2-5.4 [facility] Comment on above: Performed By: #### L 500.2500, L100.0100 ####[facility] [address] [place], [address] RDW SD 45.0 fl High 35.1-43.9 [facility] Comment on above: Performed By: #### L 500.2500, L100.0100 ####[facility] [address] [place], [address] WBC (Bld) [#/Vol] 11.0 10*3/uL Normal 4.4-11.0 [facility] Comment on above: Performed By: #### L 500.2500, L100.0100 ####[facility] [address] [place], [address] Calcium [Mass/Vol]Ordered By : He Cat on 01-06-2025 Serum or plasma calcium measurement (mass/volume) 8.9 mg/dL 7.6-11.0 [facility] Carbon dioxide, total [Moles /volume] in Central venous bloodOrdered By: He Cat on 01-06-2025 CO2 [Moles/Vol] 21.1 mmol/L 21.0-32.0 [facility] Carbon dioxide, total [Moles/volume] in Central venous blood 21.1 mmol/L 21.0-32.0 [facility] Chloride assayOrdered By: Sarbjit Cat on 01-06-2025 Chloride [Moles/Vol] 101 mmol/L 98-108 [facility] Chloride assay 101 mmol/L 98-108 [facility] Creatinine [Mass/Vol]Ordered By: He Cat on 01-06-2025 Serum creatinine measurement (mass/volume) 3.23 mg/dL High 0.70-1.20 [facility] Discharge Instructionon Discharge Instruction Normal [facility] Eosinophil percentageOrdered By: He Cat on 01-06-2025 Eosinophils/100 WBC (Bld) 0.1 % 0-5 [facility] Eosinophil percentage 0.1 % 0-1 [facility] Erythrocyte distribution wid th (RBC) [Entitic vol]Ordered By: He Cat on 01-06-2025 Erythrocyte distribution width standard deviation 45.0 fl High 35.1-43.9 [facility] Erythrocyte distribution wid th (RBC) [Ratio]Ordered By: He Cat on 01-06-2025 Erythrocyte distribution width ratio 13.0 % 11.6-14.6 [facility] Erythrocyte distribution wid th ratioOrdered By: He Cat on 01-06-2025 Erythrocyte distribution width (RBC) [Ratio] 13.0 % 11.6-14.6 [facility] Erythrocyte distribution wid th standard deviationOrdered By: He Cat on 01-06-2025 Erythrocyte distribution width (RBC) [Ratio] 45.0 fl High 35.1-43.9 [facility] Estimation of creatinine abdulkadir aranceOrdered By: He Cat on 01-06-2025 Estimation of creatinine clearance 12.75 ml/min Low 50-250 [facility] GFR/1.73 sq M.predicted kris g non-blacks MDRD (S/P/Bld) [Vol rate/Area]Ordered By: He Cat on 01-06-2025 Glomerular filtration rate (GFR) estimation/1.73 sq m using serum, plasma, or whole b 15 Low >60 [facility] Glomerular filtration rate ( GFR) estimation/1.73 sq m using serum, plasma, or whole bOrdered By: He Cat on 01-06-2025 GFR/1.73 sq M.predicted among non-blacks MDRD (S/P/Bld) [Vol rate/Area] 15 mL/min/{1.73_m2} Low >60 [facility] Glucose [Mass/Vol]Ordered By : He Cat on 01-06-2025 Serum glucose measurement (mass/volume) 337 mg/dL High 70-99 [facility] Glucose measurement at bedsi deOrdered By: He Cat on 01-06-2025 Glucose [Mass/Vol] 374 mg/dL High 74-106 [facility] Glucose measurement at bedside 374 mg/dL High 74-106 [facility] Hematocrit Auto (Bld) [Volum e fraction]Ordered By: He Cat on 01-06-2025 Hematocrit (Bld) [Volume fraction] 28.8 % Low 37-47 [facility] Automated blood hematocrit (percentage) 28.8 % Low 37-47 [facility] Hemoglobin measurementOrdere d By: He Cat on 01-06-2025 Hemoglobin (Bld) [Mass/Vol] 9.1 g/dL Low 12.0-15.0 [facility] Hemoglobin measurement 9.1 g/dL Low 12.0-15.0 [facility] Immature granulocytes/100 WB C Auto (Bld)Ordered By: He Cat on 01-06-2025 Immature granulocytes/100 WBC (Bld) 1.000 % High 0.0-0.9 [facility] Automated immature granulocyte percentage 1.000 % High 0.0-0.9 [facility] Lymphocytes Auto (Unsp spec) [#/Vol]Ordered By: He Cat on 01-06-2025 Absolute lymphocyte count 0.66 X10^3/uL Low 0.83-4.51 [facility] Lymphocytes/100 WBC Auto (Un sp spec)Ordered By: He Cat on 01-06-2025 Automated lymphocyte count as percentage of total leukocytes 6.0 % Low 19-41 [facility] MCV (RBC) [Entitic vol]Order ed By: He Cat on 01-06-2025 MCV (mean corpuscular volume) determination 96.3 fL 81-99 [facility] MCV (mean corpuscular volume ) determinationOrdered By: He Cat on 01-06-2025 MCV (RBC) [Entitic vol] 96.3 fL 81-99 [facility] Mean corpuscular hemoglobin (MCH) determinationOrdered By: He Cat on 01-06-2025 MCH (RBC) [Entitic mass] 30.4 pg 27.0-32.0 [facility] Mean corpuscular hemoglobin (MCH) determination 30.4 pg 27.0-32.0 [facility] Mean corpuscular hemoglobin concentration (MCHC) determinationOrdered By: He Cat on 01-06-2025 Mean corpuscular hemoglobin concentration (MCHC) determination 31.6 g/dL Low 32-36 [facility] Mean platelet volume determi nationOrdered By: He Cat on 01-06-2025 Mean platelet volume determination 9.8 fl 6.2-12.0 [facility] Monocyte percentageOrdered B y: He Cat on 01-06-2025 Monocytes/100 WBC (Bld) 4.8 % 0-10 [facility] Monocyte percentage 4.8 % 0-10 [facility] Neutrophil percentageOrdered By: He Cat on 01-06-2025 Neutrophils/100 WBC (Bld) 88.0 % High 47-70 [facility] Neutrophil percentage 88.0 % High 47-70 [facility] Nucleated red blood cell per centageOrdered By: He Cat on 01-06-2025 Nucleated red blood cell percentage 0 % 0-5 [facility] Platelet countOrdered By: Sarbjit Cat on 01-06-2025 Platelets (Bld) [#/Vol] 229 10*3/uL 150-450 [facility] Platelet count 229 K/mm3 150-450 [facility] Potassium (Unsp spec) [Mass/ Vol]Ordered By: He Cat on 01-06-2025 Potassium measurement (mass/volume) 5.6 mmol/L High 3.3-5.1 [facility] Potassium measurement (mass/ volume)Ordered By: He Cat on 01-06-2025 Potassium (Unsp spec) [Mass/Vol] 5.6 mmol/L High 3.3-5.1 [facility] RBC Auto (Bld) [#/Vol]Ordere d By: He Cat on 01-06-2025 RBC (Bld) [#/Vol] 2.99 10*6/uL Low 4.2-5.4 [facility] Automated blood erythrocyte count 2.99 M/mm3 Low 4.2-5.4 [facility] Serum creatinine measurement (mass/volume)Ordered By: He Cat on 01-06-2025 Creatinine [Mass/Vol] 3.23 mg/dL High 0.70-1.20 [facility] Serum glucose measurement (m ass/volume)Ordered By: He Cat on 01-06-2025 Glucose [Mass/Vol] 337 mg/dL High 70-99 [facility] Serum or plasma calcium lesly urement (mass/volume)Ordered By: He Cat on 01-06-2025 Calcium [Mass/Vol] 8.9 mg/dL 7.6-11.0 [facility] Serum or plasma urea nitroge n measurement (mass/volume)Ordered By: He Cat on 01-06-2025 Urea nitrogen [Mass/Vol] 42 mg/dL High 4- [facility] Sodium levelOrdered By: Samantha Cat on 01-06-2025 Sodium [Moles/Vol] 134 mmol/L 133-145 [facility] Sodium level 134 mmol/L 133-145 [facility] Urea nitrogen [Mass/Vol]Orde red By: He Cat on 01-06-2025 Serum or plasma urea nitrogen measurement (mass/volume) 42 mg/dL High 4-19 [facility] White blood cell (WBC) count Ordered By: He Cat on 01-06-2025 WBC (Bld) [#/Vol] 11.0 10*3/uL 4.4-11.0 [facility] White blood cell (WBC) count 11.0 K/mm3 4.4-11.0 [facility] Albumin [Mass/Vol]Ordered By : Christy Huerta on 01-05-2025 Serum or plasma albumin measurement (mass/volume) 3.4 g/dL 3.4-4.8 [facility] Arterial patency Wrist arter y --pre arterial punctureOrdered By: He Cat on 01-05-2025 Assessment of wrist artery patency prior to arterial puncture Positive [facility] Assessment of wrist artery p atency prior to arterial punctureOrdered By: He Cat on 01-05-2025 Arterial patency Wrist artery --pre arterial puncture Positive [facility] Base excess Calc (BldV) [Mol es/Vol]Ordered By: eH Cat on 01-05-2025 Blood base excess determination -1 mmol/L -2-2 [facility] Bedside Glucoseon 01-05-2025 FINGERSTICK GLU 338 mg/dL High [address] [place] [address] Comment on above: Result Comment: SHELLY GEMENT OF PATIENT CARE PER NURSING PROTOCOL Performed By: #### L 501.080 ####[facility] [address] [facility] [address] FINGERSTICK GLU 292 mg/dL High [address] [place] [address] Comment on above: Result Comment: SHELLY GEMENT OF PATIENT CARE PER NURSING PROTOCOL Performed By: #### L 501.080 ####[facility] [address] [facility] [address] FINGERSTICK GLU 419 mg/dL High [address] [place] [address] Comment on above: Result Comment: SHELLY GEMENT OF PATIENT CARE PER NURSING PROTOCOL Performed By: #### L 501.080 ####[facility] [address] [facility] [address] FINGERSTICK GLU 286 mg/dL High [address] [place] [address] Comment on above: Result Comment: SHELLY GEMENT OF PATIENT CARE PER NURSING PROTOCOL Performed By: #### L 501.080 ####[facility] [address] [place], [address] Blood Gases by [facility] 025 TINY TEST Positive Normal [facility] Comment on above: Performed By: #### L 9000.0800 ####[facility] [address] [place], [address] Base excess Calc (Bld) [Moles/Vol] -1 mmol/L Normal -2 to +2 [facility] Comment on above: Performed By: #### L 9000.0800 ####[facility] [address] [place], [address] Blood Gas Type ART Normal [facility] Comment on above: Performed By: #### L 9000.0800 ####[facility] [address] [place], [address] Comment Normal [facility] Comment on above: Result Comment: Bipa p settings of IPAP 18, EPAP 8, fio2 30 % Performed By: #### L 9000.0800 ####[facility] [address] [place], [address] FI02 30.0 Normal [facility] Comment on above: Performed By: #### L 9000.0800 ####[facility] [address] [place], [address] Mode Not entered Normal [facility] Comment on above: Performed By: #### L 9000.0800 ####[facility] [address] [place], [address] O2 Delivery Dev BiPAP Normal [facility] Comment on above: Performed By: #### L 9000.0800 ####[facility] [address] [place], [address] pCO2 55.0 mmHg High 35-45 [facility] Comment on above: Performed By: #### L 9000.0800 ####[facility] [address] [place], [address] pH (Bld) 7.28 [pH] Low 7.35-7.45 [facility] Comment on above: Performed By: #### L 9000.0800 ####[facility] [address] [place], [address] PO2 87 mmHG Normal 75-100 [facility] Comment on above: Performed By: #### L 9000.0800 ####[facility] [address] [place], [address] SITE L Radial Normal [facility] Comment on above: Performed By: #### L 9000.0800 ####[facility] [address] [place], [address] SO2 95 Normal 95-99 [facility] Comment on above: Performed By: #### L 9000.0800 ####[facility] [address] [place], [address] Blood base excess determinat ionOrdered By: He Cat on 01-05-2025 Base excess Calc (BldV) [Moles/Vol] -1 mmol/L -2-2 [facility] Blood bicarbonate measuremen tOrdered By: He Cat on 01-05-2025 HCO3 (Bld) [Moles/Vol] 25.6 mmol/L Normal - W [facility] Comment on above: Performed By: #### L 9000.0800 ####[facility] [address] [place], [address] Blood bicarbonate measurement 25.6 mmol/L - [facility] CBC-Complete Blood Cnt No Di ffon 01-05-2025 Erythrocyte distribution width (RBC) [Ratio] 12.9 % Normal 11.6-14.6 [facility] Comment on above: Performed By: #### L 500.3600, L100.0500 ####[facility] [address] [place], [address] Hematocrit (Bld) [Volume fraction] 29.6 % Low 37-47 [facility] Comment on above: Performed By: #### L 500.3600, L100.0500 ####[facility] [address] [place], [address] Hemoglobin (Bld) [Mass/Vol] 9.4 g/dL Low 12.0-15.0 [facility] Comment on above: Performed By: #### L 500.3600, L100.0500 ####[facility] [address] [place], [address] MCH (RBC) [Entitic mass] 30.3 pg Normal 27.0-32.0 [facility] Comment on above: Performed By: #### L 500.3600, L100.0500 ####[facility] [address] [place], [address] MCHC (RBC) [Mass/Vol] 31.8 g/dL Low 32-36 [facility] Comment on above: Performed By: #### L 500.3600, L100.0500 ####[facility] [address] [place], [address] MCV (RBC) [Entitic vol] 95.5 fL Normal 81-99 [facility] Comment on above: Performed By: #### L 500.3600, L100.0500 ####[facility] [address] [place], [address] Platelet mean volume (Bld) [Entitic vol] 10.0 fL Normal 6.2-12.0 [facility] Comment on above: Performed By: #### L 500.3600, L100.0500 ####[facility] [address] [place], [address] Platelets (Bld) [#/Vol] 235 10*3/uL Normal 150-450 [facility] Comment on above: Performed By: #### L 500.3600, L100.0500 ####[facility] [address] [place], [address] RBC (Bld) [#/Vol] 3.10 10*6/uL Low 4.2-5.4 [facility] Comment on above: Performed By: #### L 500.3600, L100.0500 ####[facility] [address] [place], [address] RDW SD 44.2 fl High 35.1-43.9 [facility] Comment on above: Performed By: #### L 500.3600, L100.0500 ####[facility] [address] [place], [address] WBC (Bld) [#/Vol] 10.5 10*3/uL Normal 4.4-11.0 [facility] Comment on above: Performed By: #### L 500.3600, L100.0500 ####[facility] [address] [place], [address] Consultation - Intensiviston 01-05-2025 Consultation - Occupational Health Physician Normal [facility] Determination of fraction of inspired oxygenOrdered By: He Cat on 01-05-2025 Determination of fraction of inspired oxygen 30.0 [facility] HbA1c (Bld) [Mass fraction]O rdered By: He Cat on 01-05-2025 Hemoglobin A1c percentage 6.6 % >5.7 [facility] Hemoglobin A1con 01-05-2025 HbA1c (Bld) [Mass fraction] 6.6 % Normal <=5.6 [facility] Comment on above: Performed By: #### L 501.9985 ####[facility] [address] [place], [address] Hemoglobin A1c percentageOrd ered By: He Cat on 01-05-2025 HbA1c (Bld) [Mass fraction] 6.6 % >5.7 [facility] L509.7001on 01-05-2025 Procalcitonin 2.31 ng/mL High <=0.10 [facility] Comment on above: Result Comment: Inte rpretation:<0.10-0.25 ng/mL: Antibiotic therapy discouraged. Bacterialinfection unlikely.0.25-0.50 ng/mL: Antibiotic therapy encouraged. Bacterialinfection possible.>0.50 ng/mL: Antibiotic therapy strongly encouraged.Suggestive of presence of bacterial infection.PCT should always be interpreted in the clinical context ofthe patient. Therefore, clinicians should use the PCTresults in conjunction with other laboratory findings andclinical signs of the patient. Performed By: #### L 509.7001 ####[facility] [address] [place], [place], [address] Measurement, pHOrdered By: Isabelle Cat on 01-05-2025 pH (Unsp spec) 7.28 [pH] Low 7.35-7.45 [facility] No Panel InformationOrdered By: He Cat on 01-05-2025 ART [facility] L Radial [facility] Not entered [facility] BiPAP [facility] See comment [facility] No Panel InformationOrdered By: Terrance Alva on 01-05-2025 2.31 ng/mL High <0.11 [facility] Oxygen saturation measuremen tOrdered By: He Cat on 01-05-2025 Oxygen saturation measurement 95 % 95-99 [facility] Partial pressure of carbon d ioxide measurementOrdered By: He Cat on 01-05-2025 Partial pressure of carbon dioxide measurement 55.0 mmHg High 35-45 [facility] Partial pressure of oxygen m easurementOrdered By: He Cat on 01-05-2025 Partial pressure of oxygen measurement 87 mmHG 75-100 [facility] RESPIRATORY PANEL MOLECULARo n 01-05-2025 RP PANEL Normal [facility] Comment on above: Performed By: #### M 100.638 ####[facility] [address] [place], [place], [id number] Renal Profileon 01-05-2025 Albumin [Mass/Vol] 3.4 g/dL Normal 3.4-4.8 [facility] Comment on above: Performed By: #### L 500.3600, L100.0500 ####[facility] [address] [place], [address] BUN/CRE 10.7 RATIO Normal 10-20 [facility] Comment on above: Performed By: #### L 500.3600, L100.0500 ####[facility] [address] [place], [address] Calcium [Mass/Vol] 9.2 mg/dL Normal 7.6-11.0 [facility] Comment on above: Performed By: #### L 500.3600, L100.0500 ####[facility] [address] [place], [address] Chloride [Moles/Vol] 95 mmol/L Low 98-108 [facility] Comment on above: Performed By: #### L 500.3600, L100.0500 ####[facility] [address] [place], [address] CO2 [Moles/Vol] 23.6 mmol/L Normal 21.0-32.0 [facility] Comment on above: Performed By: #### L 500.3600, L100.0500 ####[facility] [address] [place], [address] Creatinine [Mass/Vol] 3.67 mg/dL High 0.70-1.20 [facility] Comment on above: Performed By: #### L 500.3600, L100.0500 ####[facility] [address] [place], [address] ECRCL 11.77 ml/min Low 50-250 [facility] Comment on above: Performed By: #### L 500.3600, L100.0500 ####[facility] [address] [place], [address] GAP 11 Normal 5-15 [facility] Comment on above: Performed By: #### L 500.3600, L100.0500 ####[facility] [address] [place], [address] GFR/1.73 sq M.predicted among non-blacks MDRD (S/P/Bld) [Vol rate/Area] 13 mL/min/{1.73_m2} Low >60 [facility] Comment on above: Result Comment: mL/m in/1.73m2 CKD-EPI Creatinine Equation (2020) Performed By: #### L 500.3600, L100.0500 ####[facility] [address] [place], [address] Glucose [Mass/Vol] 301 mg/dL High 70-99 [facility] Comment on above: Performed By: #### L 500.3600, L100.0500 ####[facility] [address] [place], [address] Potassium [Moles/Vol] 6.1 mmol/L Invalid Interpretation Code 3.3-5.1 [facility] Comment on above: Result Comment: Crit ical Result(s) Called at 01/05/2025-09:34 by Kalia Tong??Results read back by same. Performed By: #### L 500.3600, L100.0500 ####[facility] [address] [place], [address] Sodium [Moles/Vol] 130 mmol/L Low 133-145 [facility] Comment on above: Performed By: #### L 500.3600, L100.0500 ####[facility] [address] [place], [address] Urea nitrogen [Mass/Vol] 39 mg/dL High 4-19 [facility] Comment on above: Performed By: #### L 500.3600, L100.0500 ####[facility] [address] [place], [address] Respiratory pathogens detect ion panel by molecular detection methodOrdered By: Terrance Alva on 01-05-2025 Respiratory pathogens DNA and RNA panel MARISA+probe (Resp) [facility] Serum or plasma albumin lesly urement (mass/volume)Ordered By: Christy Huerta on 01-05-2025 Albumin [Mass/Vol] 3.4 g/dL 3.4-4.8 [facility] Serum or plasma vancomycin m easurement (mass/volume)Ordered By: He Cat on 01-05-2025 Vancomycin [Mass/Vol] 15.1 ug/mL High 0.0-15.0 [facility] Serum phosphorus measurement Ordered By: Christy Huerta on 01-05-2025 Serum phosphorus measurement 4.3 mg/dL 2.7-4.5 [facility] Total carbon dioxide measure mentOrdered By: He Cat on 01-05-2025 CO2 [Moles/Vol] 27 mmol/L Normal [facility] Comment on above: Performed By: #### L 9000.0800 ####[facility] [address] [place], [address] Total carbon dioxide measurement 27 mmol/L [facility] Vancomycin [Mass/Vol]Ordered By: He Cat on 01-05-2025 Serum or plasma vancomycin measurement (mass/volume) 15.1 ug/mL High 0.0-15.0 [facility] Vancomycin, Random Levelon 0 01-05-2025 VANCO, RANDOM 15.1 ug/mL High 0.0-15.0 [facility] Comment on above: Order Comment: Comme nts: BEFORE HEMODIALYSIS Result Comment: VANC OMYCIN STANDARD DRUG THERAPY: CRITICAL VALUE IS > 15.0 mg/LVANCOMYCIN HIGH INTENSITY THERAPY: CRITICAL VALUE IS > 20.0 mg/LPLEASE CONTACT PHARMACY SERVICES (#1349) FOR INTERPRETATIONOF RESULTS. THIS RESULT DOES NOT REPRESENT A PEAK OR TROUGHLEVEL FOR THIS DRUG. Performed By: #### L 501.8850 ####[facility] [address] [place], [address] pH (Unsp spec)Ordered By: Sarbjit Cat on 01-05-2025 Measurement, pH 7.28 Low 7.35-7.45 [facility] Basic Metabolic Profile (BMP )on 01-04-2025 BUN/CRE 9.2 RATIO Low 10-20 [facility] Comment on above: Performed By: #### L 100.0100, L500.2500 ####[facility] [address] [place], [address] Calcium [Mass/Vol] 9.8 mg/dL Normal 7.6-11.0 [facility] Comment on above: Performed By: #### L 100.0100, L500.2500 ####[facility] [address] [place], [address] Chloride [Moles/Vol] 94 mmol/L Low 98-108 [facility] Comment on above: Performed By: #### L 100.0100, L500.2500 ####[facility] [address] [place], [address] CO2 [Moles/Vol] 26.9 mmol/L Normal 21.0-32.0 [facility] Comment on above: Performed By: #### L 100.0100, L500.2500 ####[facility] [address] [place], [address] Creatinine [Mass/Vol] 4.27 mg/dL High 0.70-1.20 [facility] Comment on above: Performed By: #### L 100.0100, L500.2500 ####[facility] [address] [place], [address] ECRCL 10.41 ml/min Low 50-250 [facility] Comment on above: Performed By: #### L 100.0100, L500.2500 ####[facility] [address] [place], [address] GAP 8 Normal 5-15 [facility] Comment on above: Performed By: #### L 100.0100, L500.2500 ####[facility] [address] [place], [address] GFR/1.73 sq M.predicted among non-blacks MDRD (S/P/Bld) [Vol rate/Area] 11 mL/min/{1.73_m2} Low >60 [facility] Comment on above: Result Comment: mL/m in/1.73m2 CKD-EPI Creatinine Equation (2020) Performed By: #### L 100.0100, L500.2500 ####[facility] [address] [place], [address] Glucose [Mass/Vol] 256 mg/dL High 70-99 [facility] Comment on above: Performed By: #### L 100.0100, L500.2500 ####[facility] [address] [place], [address] Potassium [Moles/Vol] 5.4 mmol/L High 3.3-5.1 [facility] Comment on above: Performed By: #### L 100.0100, L500.2500 ####[facility] [address] [place], [address] Sodium [Moles/Vol] 129 mmol/L Low 133-145 [facility] Comment on above: Performed By: #### L 100.0100, L500.2500 ####[facility] [address] [place], [address] Urea nitrogen [Mass/Vol] 39 mg/dL High 4-19 [facility] Comment on above: Performed By: #### L 100.0100, L500.2500 ####[facility] [address] [place], [address] Bedside Glucoseon 01-04-2025 FINGERSTICK GLU 308 mg/dL High 74-106 [place] [facility] Comment on above: Result Comment: SHELLY GEMENT OF PATIENT CARE PER NURSING PROTOCOL Performed By: #### L 501.080 ####[facility] [address] [place], [address] FINGERSTICK GLU 133 mg/dL High [address] [place] [address] Comment on above: Result Comment: SHELLY GEMENT OF PATIENT CARE PER NURSING PROTOCOL Performed By: #### L 501.080 ####[facility] [address] [place], [address] FINGERSTICK GLU 282 mg/dL High [address] [place] [address] Comment on above: Result Comment: SHELLY GEMENT OF PATIENT CARE PER NURSING PROTOCOL Performed By: #### L 501.080 ####[facility] [address] [place], [address] FINGERSTICK GLU 37 mg/dL Invalid Interpretation Code [address] [place] [address] Comment on above: Result Comment: [facility] k GivenMANAGEMENT OF PATIENT CARE PER NURSING PROTOCOL Performed By: #### L 501.080 ####[facility] [address] [place], [address] FINGERSTICK GLU 33 mg/dL Invalid Interpretation Code [address] [place] [address] Comment on above: Result Comment: [facility] k GivenMANAGEMENT OF PATIENT CARE PER NURSING PROTOCOL Performed By: #### L 501.080 ####[facility] [address] [place], [address] FINGERSTICK GLU 303 mg/dL High [address] [place] [address] Comment on above: Result Comment: SHELLY GEMENT OF PATIENT CARE PER NURSING PROTOCOL Performed By: #### L 501.080 ####[facility] [address] [place], [address] FINGERSTICK GLU 188 mg/dL High [address] [place] [address] Comment on above: Result Comment: SHELLY GEMENT OF PATIENT CARE PER NURSING PROTOCOL Performed By: #### L 501.080 ####[facility] [address] [place], [address] FINGERSTICK GLU 132 mg/dL High 74-106 [facility] Comment on above: Result Comment: SHELLY GEMENT OF PATIENT CARE PER NURSING PROTOCOL Performed By: #### L 501.080 ####[facility] [address] [place], [address] FINGERSTICK GLU 153 mg/dL High 74-106 [facility] Comment on above: Result Comment: SHELLY GEMENT OF PATIENT CARE PER NURSING PROTOCOL Performed By: #### L 501.080 ####[facility] [address] [place], [address] FINGERSTICK GLU 173 mg/dL High 74-106 [facility] Comment on above: Result Comment: SHELLY GEMENT OF PATIENT CARE PER NURSING PROTOCOL Performed By: #### L 501.080 ####[facility] [address] [place], [address] FINGERSTICK GLU 251 mg/dL High 74-106 [facility] Comment on above: Result Comment: SHELLY GEMENT OF PATIENT CARE PER NURSING PROTOCOL Performed By: #### L 501.080 ####[facility] [address] [place], [address] FINGERSTICK GLU 244 mg/dL High -106 [facility] Comment on above: Result Comment: SHELLY GEMENT OF PATIENT CARE PER NURSING PROTOCOL Performed By: #### L 501.080 ####[facility] [address] [place], [address] FINGERSTICK GLU 170 mg/dL High -106 [facility] Comment on above: Result Comment: SHELLY GEMENT OF PATIENT CARE PER NURSING PROTOCOL Performed By: #### L 501.080 ####[facility] [address] [place], [address] Blood Gases by [facility] 03-04-2 025 TINY TEST Positive Normal [facility] Comment on above: Performed By: #### L 9000.0800 ####[facility] [address] [place], [address] Base excess Calc (Bld) [Moles/Vol] 7 mmol/L High -2 to +2 [facility] Comment on above: Performed By: #### L 9000.0800 ####[facility] [address] [place], [address] Blood Gas Type ART Normal [facility] Comment on above: Performed By: #### L 9000.0800 ####[facility] [address] [place], [address] CO2 [Moles/Vol] 36 mmol/L Normal [facility] Comment on above: Performed By: #### L 9000.0800 ####[facility] [address] [place], [address] Comment Normal [facility] Comment on above: Result Comment: Bipa p settings of 15/8 rate of 12, fio2 30% Performed By: #### L 9000.0800 ####[facility] [address] [place], [address] FI02 30.0 Normal [facility] Comment on above: Performed By: #### L 9000.0800 ####[facility] [address] [place], [address] HCO3 (Bld) [Moles/Vol] 33.3 mmol/L High 22-26 [facility] Comment on above: Performed By: #### L 9000.0800 ####[facility] [address] [place], [address] Mode Not entered Normal [facility] Comment on above: Performed By: #### L 9000.0800 ####[facility] [address] [place], [address] O2 Delivery Dev BiPAP Normal [facility] Comment on above: Performed By: #### L 9000.0800 ####[facility] [address] [place], [address] pCO2 71.6 mmHg Invalid Interpretation Code 35-45 [facility] Comment on above: Performed By: #### L 9000.0800 ####[facility] [address] [place], [address] pH (Bld) 7.28 [pH] Low 7.35-7.45 [facility] Comment on above: Performed By: #### L 9000.0800 ####[facility] [address] [place], [address] PO2 69 mmHG Low 75-100 [facility] Comment on above: Performed By: #### L 9000.0800 ####[facility] [address] [place], [address] Read Back By Yes Normal [facility] Comment on above: Performed By: #### L 9000.0800 ####[facility] [address] [place], [address] SITE % Normal [facility] Comment on above: Performed By: #### L 9000.0800 ####[facility] [address] [place], [address] SO2 90 Low 95-99 [facility] Comment on above: Performed By: #### L 9000.0800 ####[facility] [address] [place], [address] TINY TEST Positive Normal [facility] Comment on above: Performed By: #### L 9000.0800 ####[facility] [address] [place], [address] Base excess Calc (Bld) [Moles/Vol] 4 mmol/L High -2 to +2 [facility] Comment on above: Performed By: #### L 9000.0800 ####[facility] [address] [place], [address] Blood Gas Type ART Normal [facility] Comment on above: Performed By: #### L 9000.0800 ####[facility] [address] [place], [address] CO2 [Moles/Vol] 34 mmol/L Normal [facility] Comment on above: Performed By: #### L 9000.0800 ####[facility] [address] [place], [address] FI02 3.0 Normal [facility] Comment on above: Performed By: #### L 9000.0800 ####[facility] [address] [place], [address] HCO3 (Bld) [Moles/Vol] 31.3 mmol/L High 22-26 [facility] Comment on above: Performed By: #### L 9000.0800 ####[facility] [address] [place], [address] Mode Not entered Normal [facility] Comment on above: Performed By: #### L 9000.0800 ####[facility] [address] [place], [address] O2 Delivery Dev Cannula Normal [facility] Comment on above: Performed By: #### L 9000.0800 ####[facility] [address] [place], [address] pCO2 72.6 mmHg Invalid Interpretation Code 35-45 [facility] Comment on above: Performed By: #### L 9000.0800 ####[facility] [address] [place], [address] pH (Bld) 7.24 [pH] Low 7.35-7.45 [facility] Comment on above: Performed By: #### L 9000.0800 ####[facility] [address] [place], [address] PO2 86 mmHG Normal 75-100 [facility] Comment on above: Performed By: #### L 9000.0800 ####[facility] [address] [place], [address] Read Back By Yes Normal [facility] Comment on above: Performed By: #### L 9000.0800 ####[facility] [address] [place], [address] Results To pradeep [facility] Comment on above: Performed By: #### L 9000.0800 ####[facility] [address] [place], [address] SITE L Radial Normal [facility] Comment on above: Performed By: #### L 9000.0800 ####[facility] [address] [place], [address] SO2 94 Low 95-99 [facility] Comment on above: Performed By: #### L 9000.0800 ####[facility] [address] [place], [address] Time Given 10:46:25 Normal [facility] Comment on above: Performed By: #### L 9000.0800 ####[facility] [address] [place], [address] CBC W/Diff, Automatedon 03-0 Absolute Lymph 2.60 X10 3/uL Normal 0.83-4.51 [facility] Comment on above: Performed By: #### L 100.0100, L500.2500 ####[facility] [address] [place], [address] Absolute Neut 7.4 X10 3/uL Normal 2.0-7.7 [facility] Comment on above: Performed By: #### L 100.0100, L500.2500 ####[facility] [address] [place], [address] Basophils/100 WBC (Bld) 0.6 % Normal 0-1 [facility] Comment on above: Performed By: #### L 100.0100, L500.2500 ####[facility] [address] [place], [address] Eosinophils/100 WBC (Bld) 6.4 % High 0-5 [facility] Comment on above: Performed By: #### L 100.0100, L500.2500 ####[facility] [address] [place], [address] Erythrocyte distribution width (RBC) [Ratio] 12.5 % Normal 11.6-14.6 [facility] Comment on above: Performed By: #### L 100.0100, L500.2500 ####[facility] [address] [place], [address] Hematocrit (Bld) [Volume fraction] 29.7 % Low 37-47 [facility] Comment on above: Performed By: #### L 100.0100, L500.2500 ####[facility] [address] [place], [address] Hemoglobin (Bld) [Mass/Vol] 9.2 g/dL Low 12.0-15.0 [facility] Comment on above: Performed By: #### L 100.0100, L500.2500 ####[facility] [address] [place], [address] IG% 0.400 Normal 0.0-0.9 [facility] Comment on above: Result Comment: IG% - Immature Granulocytes (promyelocytes, myelocytes andmetamyelocytes) > 1% indicates that a LEFT SHIFT is Present. Performed By: #### L 100.0100, L500.2500 ####[facility] [address] [place], [address] Lymphocytes/100 WBC (Bld) 21.5 % Normal 19-41 [facility] Comment on above: Performed By: #### L 100.0100, L500.2500 ####[facility] [address] [place], [address] MCH (RBC) [Entitic mass] 30.3 pg Normal 27.0-32.0 [facility] Comment on above: Performed By: #### L 100.0100, L500.2500 ####[facility] [address] [place], [address] MCHC (RBC) [Mass/Vol] 31.0 g/dL Low 32-36 [facility] Comment on above: Performed By: #### L 100.0100, L500.2500 ####[facility] [address] [place], [address] MCV (RBC) [Entitic vol] 97.7 fL Normal 81-99 [facility] Comment on above: Performed By: #### L 100.0100, L500.2500 ####[facility] [address] [place], [address] Monocytes/100 WBC (Bld) 10.2 % High 0-10 [facility] Comment on above: Performed By: #### L 100.0100, L500.2500 ####[facility] [address] [place], [address] Neutrophils/100 WBC (Bld) 60.9 % Normal 47-70 [facility] Comment on above: Performed By: #### L 100.0100, L500.2500 ####[facility] [address] [place], [address] Nucleated RBC (Bld) [#/Vol] 0 10*3/uL Normal 0-5 [facility] Comment on above: Performed By: #### L 100.0100, L500.2500 ####[facility] [address] [place], [address] Platelet mean volume (Bld) [Entitic vol] 9.5 fL Normal 6.2-12.0 [facility] Comment on above: Performed By: #### L 100.0100, L500.2500 ####[facility] [address] [place], [address] Platelets (Bld) [#/Vol] 227 10*3/uL Normal 150-450 [facility] Comment on above: Performed By: #### L 100.0100, L500.2500 ####[facility] [address] [place], [address] RBC (Bld) [#/Vol] 3.04 10*6/uL Low 4.2-5.4 [facility] Comment on above: Performed By: #### L 100.0100, L500.2500 ####[facility] [address] [place], [address] RDW SD 44.8 fl High 35.1-43.9 [facility] Comment on above: Performed By: #### L 100.0100, L500.2500 ####[facility] [address] [place], [address] WBC (Bld) [#/Vol] 12.1 10*3/uL High 4.4-11.0 [facility] Comment on above: Performed By: #### L 100.0100, L500.2500 ####[facility] [address] [place], [address] Consultation - Nephrologyon 01-04-2025 Consultation - Nephrology Normal [facility] Influenza virus A and B and SARS-CoV-2 (COVID-19) and Respiratory syncytial virus RNAOrdered By: He Cat on 01-04-2025 SARS-CoV-2 (COVID-19) RNA MARISA+probe Ql (Unsp spec) [facility] M100.678on 01-04-2025 M100.678 Pending SARS-CoV-2 (COVID 19) Negative INFLUENZA A Negative INFLUENZA B Negative RSV PCR Negative Normal [facility] Comment on above: Performed By: #### M 100.678 ####[facility] [address] [place], [address] M8200.1000on 01-04-2025 M8200.1000 Normal Reference Ran ge = Negative GeneXpert Instrument, PCR method MRSA PCR MRSA NEGATIVE Normal [facility] Comment on above: Performed By: #### M 8200.1000 ####[facility] [address] [place], [address] Nasal methicillin resistant Staphylococcus aureus (MRSA) DNA detection by PCROrdered By: He Cat on 01-04-2025 MRSA DNA MARISA+probe Ql (Nose) [facility] No Panel InformationOrdered By: He Cat on 01-04-2025 Yes [facility] 10:46:25 [facility] 12 Lead EKGon 01-03-2025 12 Lead EKG Normal [facility] Basic Metabolic Profile (BMP )on 01-03-2025 BUN/CRE 9.0 RATIO Low 10-20 [facility] Comment on above: Performed By: #### L 500.2500, L100.0100 ####[facility] [address] [place], [address] Calcium [Mass/Vol] 9.2 mg/dL Normal 7.6-11.0 [facility] Comment on above: Performed By: #### L 500.2500, L100.0100 ####[facility] [address] [place], [address] Chloride [Moles/Vol] 95 mmol/L Low 98-108 [facility] Comment on above: Performed By: #### L 500.2500, L100.0100 ####[facility] [address] [place], [address] CO2 [Moles/Vol] 32.3 mmol/L High 21.0-32.0 [facility] Comment on above: Performed By: #### L 500.2500, L100.0100 ####[facility] [address] [place], [address] Creatinine [Mass/Vol] 4.48 mg/dL High 0.70-1.20 [facility] Comment on above: Performed By: #### L 500.2500, L100.0100 ####[facility] [address] [place], [address] ECRCL 11.50 ml/min Low 50-250 [facility] Comment on above: Performed By: #### L 500.2500, L100.0100 ####[facility] [address] [place], [address] GAP 5 Normal 5-15 [facility] Comment on above: Performed By: #### L 500.2500, L100.0100 ####[facility] [address] [place], [address] GFR/1.73 sq M.predicted among non-blacks MDRD (S/P/Bld) [Vol rate/Area] 10 mL/min/{1.73_m2} Low >60 [facility] Comment on above: Result Comment: mL/m in/1.73m2 CKD-EPI Creatinine Equation (2020) Performed By: #### L 500.2500, L100.0100 ####[facility] [address] [place], [address] Glucose [Mass/Vol] 158 mg/dL High 70-99 [facility] Comment on above: Performed By: #### L 500.2500, L100.0100 ####[facility] [address] [place], [address] Potassium [Moles/Vol] 5.8 mmol/L High 3.3-5.1 [facility] Comment on above: Result Comment: Hemo lysis present, Results??could be affected.?? Performed By: #### L 500.2500, L100.0100 ####[facility] [address] [place], [address] Sodium [Moles/Vol] 133 mmol/L Normal 133-145 [facility] Comment on above: Performed By: #### L 500.2500, L100.0100 ####[facility] [address] [place], [address] Urea nitrogen [Mass/Vol] 40 mg/dL High 4-19 [facility] Comment on above: Performed By: #### L 500.2500, L100.0100 ####[facility] [address] [place], [address] CBC W/Diff, Automatedon 03-0 3-2025 Absolute Lymph 1.39 X10 3/uL Normal 0.83-4.51 [facility] Comment on above: Performed By: #### L 500.2500, L100.0100 ####[facility] [address] [place], [address] Absolute Neut 6.3 X10 3/uL Normal 2.0-7.7 [facility] Comment on above: Performed By: #### L 500.2500, L100.0100 ####[facility] [address] [place], [address] Basophils/100 WBC (Bld) 0.6 % Normal 0-1 [facility] Comment on above: Performed By: #### L 500.2500, L100.0100 ####[facility] [address] [place], [address] Eosinophils/100 WBC (Bld) 7.0 % High 0-5 [facility] Comment on above: Performed By: #### L 500.2500, L100.0100 ####[facility] [address] [place], [address] Erythrocyte distribution width (RBC) [Ratio] 12.4 % Normal 11.6-14.6 [facility] Comment on above: Performed By: #### L 500.2500, L100.0100 ####[facility] [address] [place], [address] Hematocrit (Bld) [Volume fraction] 31.8 % Low 37-47 [facility] Comment on above: Performed By: #### L 500.2500, L100.0100 ####[facility] [address] [place], [address] Hemoglobin (Bld) [Mass/Vol] 10.1 g/dL Low 12.0-15.0 [facility] Comment on above: Performed By: #### L 500.2500, L100.0100 ####[facility] [address] [place], [address] IG% 0.400 Normal 0.0-0.9 [facility] Comment on above: Result Comment: IG% - Immature Granulocytes (promyelocytes, myelocytes andmetamyelocytes) > 1% indicates that a LEFT SHIFT is Present. Performed By: #### L 500.2500, L100.0100 ####[facility] [address] [place], [address] Lymphocytes/100 WBC (Bld) 15.0 % Low 19-41 [facility] Comment on above: Performed By: #### L 500.2500, L100.0100 ####[facility] [address] [place], [address] MCH (RBC) [Entitic mass] 30.4 pg Normal 27.0-32.0 [facility] Comment on above: Performed By: #### L 500.2500, L100.0100 ####[facility] [address] [place], [address] MCHC (RBC) [Mass/Vol] 31.8 g/dL Low 32-36 [facility] Comment on above: Performed By: #### L 500.2500, L100.0100 ####[facility] [address] [place], [address] MCV (RBC) [Entitic vol] 95.8 fL Normal 81-99 [facility] Comment on above: Performed By: #### L 500.2500, L100.0100 ####[facility] [address] [place], [address] Monocytes/100 WBC (Bld) 8.8 % Normal 0-10 [facility] Comment on above: Performed By: #### L 500.2500, L100.0100 ####[facility] [address] [place], [address] Neutrophils/100 WBC (Bld) 68.2 % Normal 47-70 [facility] Comment on above: Performed By: #### L 500.2500, L100.0100 ####[facility] [address] [place], [address] Nucleated RBC (Bld) [#/Vol] 0 10*3/uL Normal 0-5 [facility] Comment on above: Performed By: #### L 500.2500, L100.0100 ####[facility] [address] [place], [address] Platelet mean volume (Bld) [Entitic vol] 9.5 fL Normal 6.2-12.0 [facility] Comment on above: Performed By: #### L 500.2500, L100.0100 ####[facility] [address] [place], [address] Platelets (Bld) [#/Vol] 228 10*3/uL Normal 150-450 [facility] Comment on above: Performed By: #### L 500.2500, L100.0100 ####[facility] [address] [place], [address] RBC (Bld) [#/Vol] 3.32 10*6/uL Low 4.2-5.4 [facility] Comment on above: Performed By: #### L 500.2500, L100.0100 ####[facility] [address] [place], [address] RDW SD 43.1 fl Normal 35.1-43.9 [facility] Comment on above: Performed By: #### L 500.2500, L100.0100 ####[facility] [address] [place], [address] WBC (Bld) [#/Vol] 9.3 10*3/uL Normal 4.4-11.0 [facility] Comment on above: Performed By: #### L 500.2500, L100.0100 ####[facility] [address] [place], [address] Chest PA and Lateralon 01-03 Chest PA and Lateral Normal [facility] Emergency Department Summary on 01-03-2025 Emergency Department Summary Normal [facility] 12-30-2024 [facility] Telephone (TXCTGL) SANDY DENG ([id number]) 1960 F Date Time Provider Department 12/30/24 [facility] During your visit today, we recorded the following information about you: [place] James 12/30/2024 11:06 AM Signed Called and spoke with the patient in regards to kidney transplant referral, she states she started the process with [facility], and would like to go through the process at that center, as one center is enough to go through testings, and appointments. Advised the patient if she changes her mind, provided her with our office phone number, referral ended, and she verbalized understanding. Montana Brucelila Allergies As of Date: 12/30/2024 Noted Allergy Reaction environmental [Other] 03/23/2009 Date Reviewed: 04/02/2012 Reviewed by: Dominga Garza (Rn), RN - Fully Assessed Reason for Visit: Referral - Kidney Txp [[id number]] Prescriptions as of 12/30/2024 - promethazine (PHENERGAN) [...] Encounter Status:Closed by [place] JAMES on 12/30/24 Normal [facility] 12-29-2024 CNPN Telephone (TXCTGL) SANDY DENG ([id number]) 1960 F Date Time Provider Department 12/29/24 KIDNEY TXP COORDINATORS TXCT[facility] During your visit today, we recorded the following information about you: Otilia Portillo Tech 12/29/2024 10:51 AM Signed I spoke with Lita at [facility] who confirmed the patients demographic information and confirmed that the phone number that we have on file for the patient is incorrect. The correct phone number is [phone]. Allergies As of Date: 12/29/2024 Noted Allergy Reaction environmental [Other] 03/23/2009 Date Reviewed: 04/02/2012 Reviewed by: Dominga Garza (Rn), RN - Fully Assessed Reason for Visit: Referral - Kidney Txp [[id number]] Prescriptions as of 12/29/2024 - promethazine (PHENERGAN) [...] Status:Closed by OTILIA PORTILLO on 12/29/24 Normal [facility] Bedside Glucoseon 12-28-2024 FINGERSTICK GLU 207 mg/dL High 74-106 [facility] Comment on above: Result Comment: SHELLY GEMENT OF PATIENT CARE PER NURSING PROTOCOL Performed By: #### L 501.080 ####[facility] [address] [place], [address] FINGERSTICK GLU 166 mg/dL High [facility]106 [facility] Comment on above: Result Comment: SHELLY GEMENT OF PATIENT CARE PER NURSING PROTOCOL Performed By: #### L 501.080 ####[facility] [address] [place], [address] FINGERSTICK GLU 135 mg/dL [address] [facility] Comment on above: Result Comment: SHELLY GEMENT OF PATIENT CARE PER NURSING PROTOCOL Performed By: #### L 501.080 ####[facility] [address] [place], [address] Discharge Instructionon 12-05 Discharge Instruction Normal [facility] Glucose measurement at bedsi deOrdered By: Favian Sinclair on 12-28-2024 Glucose [Mass/Vol] 207 mg/dL High 74-106 [facility] Glucose measurement at bedside 207 mg/dL High 74-106 [facility] MR/POSTOP.ANEon 12-28-2024 MR/POSTOP.ANE Normal [facility] MR/KCFCMOHW7bz 12-28-2024 MR/POSTOPAN2 Normal [facility] Operative Reporton Operative Report Normal [facility] Basic Metabolic Profile (BMP )on 12-25-2024 BUN/CRE 6.9 RATIO Low 10-20 [facility] Comment on above: Performed By: #### L 500.2500, L100.0500 ####[facility] [address] [place], [address] CA,Total 9.0 mg/dL Normal 8.5-10.1 [facility] Comment on above: Performed By: #### L 500.2500, L100.0500 ####[facility] [address] [place], [address] Chloride [Moles/Vol] 96 mmol/L Low 98-107 [facility] Comment on above: Performed By: #### L 500.2500, L100.0500 ####[facility] [address] [place], [address] CO2 [Moles/Vol] 35.0 mmol/L High 21.0-32.0 [facility] Comment on above: Performed By: #### L 500.2500, L100.0500 ####[facility] [address] [place], [address] Creatinine [Mass/Vol] 3.19 mg/dL High 0.55-1.02 [facility] Comment on above: Result Comment: The validity of the calculated GFR GFRAA in patients over70 years has not been determined. Clinical correlation isessential. Performed By: #### L 500.2500, L100.0500 ####[facility] [address] [place], [address] EST GFR - AA 19 mL/min Low >60 [facility] Comment on above: Result Comment: Afri can Dominican GFR Calc Performed By: #### L 500.2500, L100.0500 ####[facility] [address] [place], [address] GAP 3 Low 5-15 [facility] Comment on above: Performed By: #### L 500.2500, L100.0500 ####[facility] [address] [place], [address] GFR/1.73 sq M.predicted among non-blacks MDRD (S/P/Bld) [Vol rate/Area] 16 mL/min/{1.73_m2} Low >60 [facility] Comment on above: Result Comment: Non- GFR Calc Performed By: #### L 500.2500, L100.0500 ####[facility] [address] [place], [address] Glucose [Mass/Vol] 212 mg/dL High 74-106 [facility] Comment on above: Result Comment: Gluc ose result greater than or equal to 200 mg/dLsuggests DIABETES MELLITUS per A.D.A. criteria. Performed By: #### L 500.2500, L100.0500 ####[facility] [address] [place], [address] Potassium [Moles/Vol] 4.0 mmol/L Normal 3.5-5.1 [facility] Comment on above: Performed By: #### L 500.2500, L100.0500 ####[facility] [address] [place], [address] Sodium [Moles/Vol] 134 mmol/L Low 136-145 [facility] Comment on above: Performed By: #### L 500.2500, L100.0500 ####[facility] [address] [place], [address] Urea nitrogen [Mass/Vol] 22 mg/dL High 7-18 [facility] Comment on above: Performed By: #### L 500.2500, L100.0500 ####[facility] [address] [place], [address] Blood urea nitrogen (BUN)/cr eatinine ratioOrdered By: Favian Sinclair on 12-25-2024 Blood urea nitrogen (BUN)/creatinine ratio 6.9 RATIO Low 10-20 [facility] CBC-Complete Blood Cnt No Di ffon 12-25-2024 Erythrocyte distribution width (RBC) [Ratio] 12.4 % Normal 11.6-14.6 [facility] Comment on above: Performed By: #### L 500.2500, L100.0500 ####[facility] [address] [place], [address] Hematocrit (Bld) [Volume fraction] 33.1 % Low 37-47 [facility] Comment on above: Performed By: #### L 500.2500, L100.0500 ####[facility] [address] [place], [address] Hemoglobin (Bld) [Mass/Vol] 10.6 g/dL Low 12.0-15.0 [facility] Comment on above: Performed By: #### L 500.2500, L100.0500 ####[facility] [address] [place], [address] MCH (RBC) [Entitic mass] 30.1 pg Normal 27.0-32.0 [facility] Comment on above: Performed By: #### L 500.2500, L100.0500 ####[facility] [address] [place], [address] MCHC (RBC) [Mass/Vol] 32.0 g/dL Normal 32-36 [facility] Comment on above: Performed By: #### L 500.2500, L100.0500 ####[facility] [address] [place], [address] MCV (RBC) [Entitic vol] 94.0 fL Normal 81-99 [facility] Comment on above: Performed By: #### L 500.2500, L100.0500 ####[facility] [address] [place], [address] Platelet mean volume (Bld) [Entitic vol] 9.4 fL Normal 6.2-12.0 [facility] Comment on above: Performed By: #### L 500.2500, L100.0500 ####[facility] [address] [place], [address] Platelets (Bld) [#/Vol] 220 10*3/uL Normal 150-450 [facility] Comment on above: Performed By: #### L 500.2500, L100.0500 ####[facility] [address] [place], [address] RBC (Bld) [#/Vol] 3.52 10*6/uL Low 4.2-5.4 [facility] Comment on above: Performed By: #### L 500.2500, L100.0500 ####[facility] [address] [place], [address] RDW SD 42.8 fl Normal 35.1-43.9 [facility] Comment on above: Performed By: #### L 500.2500, L100.0500 ####[facility] [address] [place], [address] WBC (Bld) [#/Vol] 7.7 10*3/uL Normal 4.4-11.0 [facility] Comment on above: Performed By: #### L 500.2500, L100.0500 ####[facility] [address] [place], [address] Calcium [Mass/Vol]Ordered By : Favian Sinclair on 12-25-2024 Serum or plasma calcium measurement (mass/volume) 9.0 mg/dL 8.5-10.1 [facility] Carbon dioxide measurementOr dered By: Favian Sinclair on 12-25-2024 CO2 [Moles/Vol] 35.0 mmol/L High 21.0-32.0 [facility] Carbon dioxide measurement 35.0 mmol/L High 21.0-32.0 [facility] Chloride measurementOrdered By: Favian Sinclair on 12-25-2024 Chloride [Moles/Vol] 96 mmol/L Low 98-107 [facility] Chloride measurement 96 mmol/L Low 98-107 [facility] Creatinine [Mass/Vol]Ordered By: Favian Sinclair on 12-25-2024 Serum or plasma creatinine measurement (mass/volume) 3.19 mg/dL High 0.55-1.02 [facility] Erythrocyte distribution wid th (RBC) [Entitic vol]Ordered By: Favian Sinclair on 12-25-2024 Erythrocyte distribution width standard deviation 42.8 fl 35.1-43.9 [facility] Erythrocyte distribution wid th (RBC) [Ratio]Ordered By: Favian Sinclair on 12-25-2024 Erythrocyte distribution width ratio 12.4 % 11.6-14.6 [facility] Erythrocyte distribution wid th ratioOrdered By: Favian Sinclair on 12-25-2024 Erythrocyte distribution width (RBC) [Ratio] 12.4 % 11.6-14.6 [facility] Erythrocyte distribution wid th standard deviationOrdered By: Favian Sinclair 12-25-2024 Erythrocyte distribution width (RBC) [Ratio] 42.8 fl 35.1-43.9 [facility] Estimated glomerular filtrat ion rate (GFR) AmericanOrdered By: Favian Sinclair on 12-25-2024 Estimated glomerular filtration rate (GFR) 19 mL/min Low >60 [facility] Glomerular filtration rate ( GFR) estimationOrdered By: Favian Sinclair on 12-25-2024 GFR/1.73 sq M.predicted among non-blacks MDRD (S/P/Bld) [Vol rate/Area] 16 mL/min/{1.73_m2} Low >60 [facility] Glomerular filtration rate (GFR) estimation 16 mL/min Low >60 [facility] Glucose measurementOrdered B y: Favian Sinclair on 12-25-2024 Glucose [Mass/Vol] 212 mg/dL High 74-106 [facility] Glucose measurement 212 mg/dL High 74-106 [facility] Hematocrit Auto (Bld) [Volum e fraction]Ordered By: Favian Sinclair on 12-25-2024 Hematocrit (Bld) [Volume fraction] 33.1 % Low 37-47 [facility] Automated blood hematocrit (percentage) 33.1 % Low 37-47 [facility] Hemoglobin measurementOrdere d By: Favian Sinclair on 12-25-2024 Hemoglobin (Bld) [Mass/Vol] 10.6 g/dL Low 12.0-15.0 [facility] Hemoglobin measurement 10.6 g/dL Low 12.0-15.0 [facility] MCV (RBC) [Entitic vol]Order ed By: Favian Sinclair on 12-25-2024 MCV (mean corpuscular volume) determination 94.0 fL 81-99 [facility] MCV (mean corpuscular volume ) determinationOrdered By: Favian Sinclair on 12-25-2024 MCV (RBC) [Entitic vol] 94.0 fL 81-99 [facility] Mean corpuscular hemoglobin (MCH) determinationOrdered By: Favian Sinclair on 12-25-2024 MCH (RBC) [Entitic mass] 30.1 pg 27.0-32.0 [facility] Mean corpuscular hemoglobin (MCH) determination 30.1 pg 27.0-32.0 [facility] Mean corpuscular hemoglobin concentration (MCHC) determinationOrdered By: Favian Sinclair on 12-25-2024 Mean corpuscular hemoglobin concentration (MCHC) determination 32.0 g/dL 32-36 [facility] Mean platelet volume determi nationOrdered By: Favian Sinclair on 12-25-2024 Mean platelet volume determination 9.4 fl 6.2-12.0 [facility] Platelet countOrdered By: Shreyas Sinclair on 12-25-2024 Platelets (Bld) [#/Vol] 220 10*3/uL 150-450 [facility] Platelet count 220 K/mm3 150-450 [facility] Potassium measurementOrdered By: Favian Sinclair on 12-25-2024 Potassium [Moles/Vol] 4.0 mmol/L 3.5-5.1 [facility] Potassium measurement 4.0 mmol/L 3.5-5.1 [facility] RBC Auto (Bld) [#/Vol]Ordere d By: Favian Sinclair on 12-25-2024 RBC (Bld) [#/Vol] 3.52 10*6/uL Low 4.2-5.4 [facility] Automated blood erythrocyte count 3.52 M/mm3 Low 4.2-5.4 [facility] Serum anion gap measurementO rdered By: Favian Sinclair on 12-25-2024 Serum anion gap measurement 3 Low 5-15 [facility] Serum or plasma calcium lesly urement (mass/volume)Ordered By: Favian Sinclair on 12-25-2024 Calcium [Mass/Vol] 9.0 mg/dL 8.5-10.1 [facility] Serum or plasma creatinine m easurement (mass/volume)Ordered By: Favian Sinclair on 12-25-2024 Creatinine [Mass/Vol] 3.19 mg/dL High 0.55-1.02 [facility] Serum or plasma urea nitroge n measurement (mass/volume)Ordered By: Favian Sinclair on 12-25-2024 Urea nitrogen [Mass/Vol] 22 mg/dL High 7-18 [facility] Sodium levelOrdered By: Favian Sinclair on 12-25-2024 Sodium [Moles/Vol] 134 mmol/L Low 136-145 [facility] Sodium level 134 mmol/L Low 136-145 [facility] Urea nitrogen [Mass/Vol]Orde red By: Favian Sinclair on 12-25-2024 Serum or plasma urea nitrogen measurement (mass/volume) 22 mg/dL High 7-18 [facility] White blood cell (WBC) count Ordered By: Favian Sinclair on 12-25-2024 WBC (Bld) [#/Vol] 7.7 10*3/uL 4.4-11.0 [facility] White blood cell (WBC) count 7.7 K/mm3 4.4-11.0 [facility] CNPNon 12-24-2024 CAROL Telephone (TXCTGL) SANDY DENG ([id number]) 1960 F Date Time Provider Department 12/24/24 [...] Reason for Visit: Referral - Kidney Txp [[id number]] Prescriptions as of 12/24/2024 - promethazine (PHENERGAN) [...] Status:Closed by [place] JAMES on 12/24/24 Normal [facility] MR/PAT.ANEon 12-20-2024 MR/PAT.ANE Normal [facility] Echo Completeon 12-17-2024 Echo Complete Normal [facility] Cardiology Visit Reporton Cardiology Visit Report Normal [facility] MR/PAT.ANEon 12-15-2024 MR/PAT.ANE Normal [facility] MR/PAT.ANEon 12-14-2024 MR/PAT.ANE Normal [facility] MR/BMS.BVSon 12-02-2024 MR/BMS.BVS Normal [facility] 12 Lead EKGon 11-20-2024 12 Lead EKG Normal [facility] 12 Lead EKG Normal [facility] ALP [Catalytic activity/Vol] Ordered By: Alex Kaur on 11-20-2024 Serum or plasma alkaline phosphatase measurement 71 U/L 45-117 [facility] ALT [Catalytic activity/Vol] Ordered By: Alex Kaur on 11-20-2024 Serum or plasma alanine aminotransferase (ALT) measurement 17 U/L 13-56 [facility] Absolute neutrophil countOrd ered By: Alex Kaur on 11-20-2024 Absolute neutrophil count 4.4 X10^3/uL 2.0-7.7 [facility] Albumin [Mass/Vol]Ordered By : Alex Kaur on 11-20-2024 Serum or plasma albumin measurement (mass/volume) 2.9 g/dL Low 3.2-5.0 [facility] Albumin to globulin ratioOrd ered By: Alex Kaur on 11-20-2024 Albumin to globulin ratio 0.9 RATIO 0.9-2.4 [facility] Basophil percentageOrdered B y: Alex Kaur on 11-20-2024 Basophil percentage 0.6 % 0-1 [facility] Bilirubin, totalOrdered By: Alex Kaur on 11-20-2024 Bilirubin, total 0.30 mg/dL 0.20-1.00 [facility] Blood urea nitrogen (BUN)/cr eatinine ratioOrdered By: Alex Kaur on 11-20-2024 Blood urea nitrogen (BUN)/creatinine ratio 8.1 RATIO Low 10-20 [facility] CBC W/Diff, Automatedon 11-03 Absolute Lymph 1.88 X10 3/uL Normal 0.83-4.51 [facility] Comment on above: Performed By: #### L 500.4050, L100.0100 ####[facility] [address] [place], [address] Absolute Neut 4.4 X10 3/uL Normal 2.0-7.7 [facility] Comment on above: Performed By: #### L 500.4050, L100.0100 ####[facility] [address] [place], [address] Basophils/100 WBC (Bld) 0.6 % Normal 0-1 [facility] Comment on above: Performed By: #### L 500.4050, L100.0100 ####[facility] [address] [place], [address] Eosinophils/100 WBC (Bld) 7.6 % High 0-5 [facility] Comment on above: Performed By: #### L 500.4050, L100.0100 ####[facility] [address] [place], [address] Erythrocyte distribution width (RBC) [Ratio] 12.6 % Normal 11.6-14.6 [facility] Comment on above: Performed By: #### L 500.4050, L100.0100 ####[facility] [address] [place], [address] Hematocrit (Bld) [Volume fraction] 35.8 % Low 37-47 [facility] Comment on above: Performed By: #### L 500.4050, L100.0100 ####[facility] [address] [place], [address] Hemoglobin (Bld) [Mass/Vol] 11.5 g/dL Low 12.0-15.0 [facility] Comment on above: Performed By: #### L 500.4050, L100.0100 ####[facility] [address] [place], [address] IG% 0.500 Normal 0.0-0.9 [facility] Comment on above: Result Comment: IG% - Immature Granulocytes (promyelocytes, myelocytes andmetamyelocytes) > 1% indicates that a LEFT SHIFT is Present. Performed By: #### L 500.4050, L100.0100 ####[facility] [address] [place], [address] Lymphocytes/100 WBC (Bld) 24.4 % Normal 19-41 [facility] Comment on above: Performed By: #### L 500.4050, L100.0100 ####[facility] [address] [place], [address] MCH (RBC) [Entitic mass] 30.4 pg Normal 27.0-32.0 [facility] Comment on above: Performed By: #### L 500.4050, L100.0100 ####[facility] [address] [place], [address] MCHC (RBC) [Mass/Vol] 32.1 g/dL Normal 32-36 [facility] Comment on above: Performed By: #### L 500.4050, L100.0100 ####[facility] [address] [place], [address] MCV (RBC) [Entitic vol] 94.7 fL Normal 81-99 [facility] Comment on above: Performed By: #### L 500.4050, L100.0100 ####[facility] [address] [place], [place], [address] Monocytes/100 WBC (Bld) 9.7 % Normal 0-10 [facility] Comment on above: Performed By: #### L 500.4050, L100.0100 ####[facility] [address] [place], [address] Neutrophils/100 WBC (Bld) 57.2 % Normal 47-70 [facility] Comment on above: Performed By: #### L 500.4050, L100.0100 ####[facility] [address] [place], [address] Nucleated RBC (Bld) [#/Vol] 0 10*3/uL Normal 0-5 [facility] Comment on above: Performed By: #### L 500.4050, L100.0100 ####[facility] [address] [place], [address] Platelet mean volume (Bld) [Entitic vol] 9.1 fL Normal 6.2-12.0 [facility] Comment on above: Performed By: #### L 500.4050, L100.0100 ####[facility] [address] [place], [address] Platelets (Bld) [#/Vol] 193 10*3/uL Normal 150-450 [facility] Comment on above: Performed By: #### L 500.4050, L100.0100 ####[facility] [address] [place], [address] RBC (Bld) [#/Vol] 3.78 10*6/uL Low 4.2-5.4 [facility] Comment on above: Performed By: #### L 500.4050, L100.0100 ####[facility] [address] [place], [address] RDW SD 42.2 fl Normal 35.1-43.9 [facility] Comment on above: Performed By: #### L 500.4050, L100.0100 ####[facility] [address] [place], [address] WBC (Bld) [#/Vol] 7.7 10*3/uL Normal 4.4-11.0 [facility] Comment on above: Performed By: #### L 500.4050, L100.0100 ####[facility] [address] [place], [address] Calcium [Mass/Vol]Ordered By : Alex Kaur on 11-20-2024 Serum or plasma calcium measurement (mass/volume) 9.3 mg/dL 8.5-10.1 [facility] Carbon dioxide measurementOr dered By: Alex Kaur on 11-20-2024 Carbon dioxide measurement 33.0 mmol/L High 21.0-32.0 [facility] Chest 1 View (Portable)on Chest 1 View (Portable) Normal [facility] Chloride measurementOrdered By: Alex Kaur on 11-20-2024 Chloride measurement 102 mmol/L 98-107 [facility] Comprehensive Metabolic Prof ilon 11-20-2024 Albumin [Mass/Vol] 2.9 g/dL Low 3.2-5.0 [facility] Comment on above: Performed By: #### L 500.4050, L100.0100 ####[facility] [address] [place], [address] Albumin/Globulin [Mass ratio] 0.9 {ratio} Normal 0.9-2.4 [facility] Comment on above: Performed By: #### L 500.4050, L100.0100 ####[facility] [address] [place], [address] ALK P 71 U/L Normal 45-117 [facility] Comment on above: Performed By: #### L 500.4050, L100.0100 ####[facility] [address] [place], [address] ALT [Catalytic activity/Vol] 17 U/L Normal 13-56 [facility] Comment on above: Performed By: #### L 500.4050, L100.0100 ####[facility] [address] [place], [address] AST [Catalytic activity/Vol] 14 U/L Low 15-37 [facility] Comment on above: Performed By: #### L 500.4050, L100.0100 ####[facility] [address] [place], [address] Bilirubin [Mass/Vol] 0.30 mg/dL Normal 0.20-1.00 [facility] Comment on above: Result Comment: For patients on eltrombopag therapy, use of Dimension Redrock TBIL is not recommended. Performed By: #### L 500.4050, L100.0100 ####[facility] [address] [place], [address] BUN/CRE 8.1 RATIO Low 10-20 [facility] Comment on above: Performed By: #### L 500.4050, L100.0100 ####[facility] [address] [place], [address] CA,Total 9.3 mg/dL Normal 8.5-10.1 [facility] Comment on above: Performed By: #### L 500.4050, L100.0100 ####[facility] [address] [place], [address] Chloride [Moles/Vol] 102 mmol/L Normal 98-107 [facility] Comment on above: Performed By: #### L 500.4050, L100.0100 ####[facility] [address] [place], [address] CO2 [Moles/Vol] 33.0 mmol/L High 21.0-32.0 [facility] Comment on above: Performed By: #### L 500.4050, L100.0100 ####[facility] [address] [place], [address] Creatinine [Mass/Vol] 2.85 mg/dL High 0.55-1.02 [facility] Comment on above: Result Comment: The validity of the calculated GFR GFRAA in patients over70 years has not been determined. Clinical correlation isessential. Performed By: #### L 500.4050, L100.0100 ####[facility] [address] [place], [address] ECRCL 15.85 ml/min Normal [facility] Comment on above: Performed By: #### L 500.4050, L100.0100 ####[facility] [address] [place], [address] EST GFR - AA 21 mL/min Low >60 [facility] Comment on above: Result Comment: Afri can Dominican GFR Calc Performed By: #### L 500.4050, L100.0100 ####[facility] [address] [place], [address] GAP 2 Low 5-15 [facility] Comment on above: Performed By: #### L 500.4050, L100.0100 ####[facility] [address] [place], [address] GFR/1.73 sq M.predicted among non-blacks MDRD (S/P/Bld) [Vol rate/Area] 18 mL/min/{1.73_m2} Low >60 [facility] Comment on above: Result Comment: Non- GFR Calc Performed By: #### L 500.4050, L100.0100 ####[facility] [address] [place], [address] Globulin (S) [Mass/Vol] 3.4 g/dL Normal 2.2-4.2 [facility] Comment on above: Performed By: #### L 500.4050, L100.0100 ####[facility] [address] [place], [address] Glucose [Mass/Vol] 105 mg/dL Normal 74-106 [facility] Comment on above: Result Comment: Fast ing Glucose result from 100 to 125 mg/dLsuggests IMPAIRED HOMEOSTASIS per A.D.A. criteria. Performed By: #### L 500.4050, L100.0100 ####[facility] [address] [place], [address] Potassium [Moles/Vol] 4.4 mmol/L Normal 3.5-5.1 [facility] Comment on above: Performed By: #### L 500.4050, L100.0100 ####[facility] [address] [place], [address] Sodium [Moles/Vol] 137 mmol/L Normal 136-145 [facility] Comment on above: Performed By: #### L 500.4050, L100.0100 ####[facility] [address] [place], [address] T PROT 6.3 g/dL Low 6.4-8.2 [facility] Comment on above: Performed By: #### L 500.4050, L100.0100 ####[facility] [address] [place], [address] Urea nitrogen [Mass/Vol] 23 mg/dL High 7-18 [facility] Comment on above: Performed By: #### L 500.4050, L100.0100 ####[facility] [address] [place], [address] Creatinine [Mass/Vol]Ordered By: Alex Kaur on 11-20-2024 Serum or plasma creatinine measurement (mass/volume) 2.85 mg/dL High 0.55-1.02 [facility] Emergency Department Summary on 11-20-2024 Emergency Department Summary Normal [facility] Eosinophil percentageOrdered By: Alex Kaur on 11-20-2024 Eosinophil percentage 7.6 % High 0-5 [facility] Erythrocyte distribution wid th (RBC) [Entitic vol]Ordered By: Alex Kaur on 11-20-2024 Erythrocyte distribution width standard deviation 42.2 fl 35.1-43.9 [facility] Erythrocyte distribution wid th (RBC) [Ratio]Ordered By: Alex Kaur on 11-20-2024 Erythrocyte distribution width ratio 12.6 % 11.6-14.6 [facility] Estimated glomerular filtrat ion rate (GFR) AmericanOrdered By: Alex Kaur on 11-20-2024 Estimated glomerular filtration rate (GFR) 21 mL/min Low >60 [facility] Estimation of creatinine abdulkadir aranceOrdered By: Alex Kaur on 11-20-2024 Estimation of creatinine clearance 15.85 ml/min [facility] Glomerular filtration rate ( GFR) estimationOrdered By: Alex Kaur on 11-20-2024 Glomerular filtration rate (GFR) estimation 18 mL/min Low >60 [facility] Glucose measurementOrdered B y: Alex Kaur on 11-20-2024 Glucose measurement 105 mg/dL 74-106 [facility] Hematocrit Auto (Bld) [Volum e fraction]Ordered By: Alex Kaur on 11-20-2024 Automated blood hematocrit (percentage) 35.8 % Low 37-47 [facility] Hemoglobin measurementOrdere d By: Alex Kaur on 11-20-2024 Hemoglobin measurement 11.5 g/dL Low 12.0-15.0 [facility] Immature granulocytes/100 WB C Auto (Bld)Ordered By: Alex Kaur on 11-20-2024 Automated immature granulocyte percentage 0.500 % 0.0-0.9 [facility] L501.4020on 11-20-2024 TROPONIN-I HS 108 pg/mL High 3.0-54.0 [facility] Comment on above: Order Comment: 'TROP ' Serial specimen #1, #2 or #3: 2 Result Comment: Ry adhikari Note: New Test Units and Gender Specific Reference Ranges. For more information see Policy Stat Procedure Redrock High Sensitivity Troponin (TNIH) and attachments. Performed By: #### L 501.4020 ####[facility] [address] [place], [place], [address] TROPONIN-I HS 113 pg/mL High 3.0-54.0 [facility] Comment on above: Order Comment: 'TROP ' Serial specimen #1, #2 or #3: 1 Result Comment: Ry adhikari Note: New Test Units and Gender Specific Reference Ranges. For more information see Policy Stat Procedure Redrock High Sensitivity Troponin (TNIH) and attachments. Performed By: #### L 501.4020 ####[facility] [address] [place], [place], [id number] Lymphocytes Auto (Unsp spec) [#/Vol]Ordered By: Alex Kaur on 11-20-2024 Absolute lymphocyte count 1.88 X10^3/uL 0.83-4.51 [facility] Lymphocytes/100 WBC Auto (Un sp spec)Ordered By: Alex Kaur on 11-20-2024 Automated lymphocyte count as percentage of total leukocytes 24.4 % 19-41 [facility] MCV (RBC) [Entitic vol]Order ed By: Alex Kaur on 11-20-2024 MCV (mean corpuscular volume) determination 94.7 fL 81-99 [facility] Mean corpuscular hemoglobin (MCH) determinationOrdered By: Alex Kaur on 11-20-2024 Mean corpuscular hemoglobin (MCH) determination 30.4 pg 27.0-32.0 [facility] Mean corpuscular hemoglobin concentration (MCHC) determinationOrdered By: Alex Kaur on 11-20-2024 Mean corpuscular hemoglobin concentration (MCHC) determination 32.1 g/dL 32-36 [facility] Mean platelet volume determi nationOrdered By: Alex Kaur on 11-20-2024 Mean platelet volume determination 9.1 fl 6.2-12.0 [facility] Monocyte percentageOrdered B y: Alex Kaur on 11-20-2024 Monocyte percentage 9.7 % 0-10 [facility] Neutrophil percentageOrdered By: Alex Kaur on 11-20-2024 Neutrophil percentage 57.2 % 47-70 [facility] No Panel InformationOrdered By: Alex Kaur on 11-20-2024 14 U/L Low 15-37 [facility] Nucleated red blood cell per centageOrdered By: Alex Kaur on 11-20-2024 Nucleated red blood cell percentage 0 % 0-5 [facility] Platelet countOrdered By: Benton Kaur on 11-20-2024 Platelet count 193 K/mm3 150-450 [facility] Potassium measurementOrdered By: Alex Kaur on 11-20-2024 Potassium measurement 4.4 mmol/L 3.5-5.1 [facility] RBC Auto (Bld) [#/Vol]Ordere d By: Alex Kaur on 11-20-2024 Automated blood erythrocyte count 3.78 M/mm3 Low 4.2-5.4 [facility] Serum anion gap measurementO rdered By: Alex Kaur on 11-20-2024 Serum anion gap measurement 2 Low 5-15 [facility] Serum globulin measurementOr dered By: Alex Kaur on 11-20-2024 Serum globulin measurement 3.4 g/dL 2.2-4.2 [facility] Sodium levelOrdered By: Alex Kaur on 11-20-2024 Sodium level 137 mmol/L 136-145 [facility] Total proteinOrdered By: Brooke Kaur on 11-20-2024 Total protein 6.3 g/dL Low 6.4-8.2 [facility] Troponin IOrdered By: Alex vidales on 11-20-2024 Troponin I 108 pg/mL High 3.0-54.0 [facility] Urea nitrogen [Mass/Vol]Orde red By: Alex Kaur on 11-20-2024 Serum or plasma urea nitrogen measurement (mass/volume) 23 mg/dL High 05-20 [facility] White blood cell (WBC) count Ordered By: Alex Kaur on 11-20-2024 White blood cell (WBC) count 7.7 K/mm3 4.4-11.0 [facility] Basic Metabolic Profile (BMP )on 11-04-2024 BUN Normal 05-20 [facility] Comment on above: Order Comment: 1Y Result Comment: PT. DISCHARGED Performed By: #### L 500.2500, L100.0100 ####[facility] [address] [place], [address] BUN/CRE Normal 10-20 [facility] Comment on above: Order Comment: 1Y Result Comment: PT. DISCHARGED Performed By: #### L 500.2500, L100.0100 ####[facility] [address] [place], [address] CA,Total Normal 8.5-10.1 [facility] Comment on above: Order Comment: 1Y Result Comment: PT. DISCHARGED Performed By: #### L 500.2500, L100.0100 ####[facility] [address] [place], [address] CL Normal 98-107 [facility] Comment on above: Order Comment: 1Y Result Comment: PT. DISCHARGED Performed By: #### L 500.2500, L100.0100 ####[facility] [address] [place], [address] CO2 Normal 21.0-32.0 [facility] Comment on above: Order Comment: 1Y Result Comment: PT. DISCHARGED Performed By: #### L 500.2500, L100.0100 ####[facility] [address] [place], [address] CREAT,SERUM Normal 0.55-1.02 [facility] Comment on above: Order Comment: 1Y Result Comment: PT. DISCHARGED Performed By: #### L 500.2500, L100.0100 ####[facility] [address] [place], [address] EST GFR Normal >60 [facility] Comment on above: Order Comment: 1Y Result Comment: PT. DISCHARGED Performed By: #### L 500.2500, L100.0100 ####[facility] [address] [place], [address] EST GFR - AA Normal >60 [facility] Comment on above: Order Comment: 1Y Result Comment: PT. DISCHARGED Performed By: #### L 500.2500, L100.0100 ####[facility] [address] [place], [address] GAP Normal 5-15 [facility] Comment on above: Order Comment: 1Y Result Comment: PT. DISCHARGED Performed By: #### L 500.2500, L100.0100 ####[facility] [address] [place], [address] GLU Normal 74-106 [facility] Comment on above: Order Comment: 1Y Result Comment: PT. DISCHARGED Performed By: #### L 500.2500, L100.0100 ####[facility] [address] [place], [address] Potassium Normal 3.5-5.1 [facility] Comment on above: Order Comment: 1Y Result Comment: PT. DISCHARGED Performed By: #### L 500.2500, L100.0100 ####[facility] [address] [place], [address] Basic Metabolic Profile (BMP) Normal 136-145 [facility] Comment on above: Order Comment: 1Y Result Comment: PT. DISCHARGED Performed By: #### L 500.2500, L100.0100 ####[facility] [address] [place], [address] CBC W/Diff, Automatedon 01-0 2-2024 Absolute Neut Normal 2.0-7.7 [facility] Comment on above: Result Comment: PT D ISCHARGED Performed By: #### L 500.2500, L100.0100 ####[facility] [address] [place], [address] HCT Normal 37-47 [facility] Comment on above: Result Comment: PT D ISCHARGED Performed By: #### L 500.2500, L100.0100 ####[facility] [address] [place], [address] HGB Normal 12.0-15.0 [facility] Comment on above: Result Comment: PT D ISCHARGED Performed By: #### L 500.2500, L100.0100 ####[facility] [address] [place], [address] MCH Normal 27.0-32.0 [facility] Comment on above: Result Comment: PT D ISCHARGED Performed By: #### L 500.2500, L100.0100 ####[facility] [address] [place], [address] MCHC Normal 32-36 [facility] Comment on above: Result Comment: PT D ISCHARGED Performed By: #### L 500.2500, L100.0100 ####[facility] [address] [place], [address] MCV Normal 81-99 [facility] Comment on above: Result Comment: PT D ISCHARGED Performed By: #### L 500.2500, L100.0100 ####[facility] [address] [place], [address] NEUT% Normal 47-70 [facility] Comment on above: Result Comment: PT D ISCHARGED Performed By: #### L 500.2500, L100.0100 ####[facility] [address] [place], [address] PLT Normal 150-450 [facility] Comment on above: Result Comment: PT D ISCHARGED Performed By: #### L 500.2500, L100.0100 ####[facility] [address] [place], [address] RBC Normal 4.2-5.4 [facility] Comment on above: Result Comment: PT D ISCHARGED Performed By: #### L 500.2500, L100.0100 ####[facility] [address] [place], [address] RDW CV Normal 11.6-14.6 [facility] Comment on above: Result Comment: PT D ISCHARGED Performed By: #### L 500.2500, L100.0100 ####[facility] [address] [place], [address] RDW SD Normal 35.1-43.9 [facility] Comment on above: Result Comment: PT D ISCHARGED Performed By: #### L 500.2500, L100.0100 ####[facility] [address] [place], [address] WBC Normal 4.4-11.0 [facility] Comment on above: Result Comment: PT D ISCHARGED Performed By: #### L 500.2500, L100.0100 ####[facility] [address] [place], [address] Pulmonary Visit Reporton Pulmonary Visit Report Normal [facility] Dialysis Vein Map PRE-OP ADEBAYO ATon 11-02-2024 Dialysis Vein Map PRE-OP BILAT Normal [facility] Chest without Contraston Chest without Contrast Normal [facility] Endocrinology Visit Reporton 10-07-2024 Endocrinology Visit Report Normal [facility] Progress Noteon 08-31-2024 Progress Note Patient seen by tn a t [facility]. Complete documentation including history with assessment and plan were documented in [facility] EMR. This encounter is for billing only. Normal [facility] Progress Noteon 08-27-2024 Progress Note Patient seen by tn a t [facility]. Complete documentation including history with assessment and plan were documented in [facility] EMR. This encounter is for billing only. [facility] Progress Noteon 08-25-2024 Progress Note Patient seen by tn a t [facility]. Complete documentation including history with assessment and plan were documented in [facility] EMR. This encounter is for billing only. [facility] 30on 08-24-2024 30 [facility] [id number] 08-24-2024 [id number] [facility] [id number] [facility] [id number] [facility] request. Normal [facility] [id number] Auth obtained for SR H. SW messaged to set up transport, [employer] messaged to send orders and MAR. Normal [facility] BASIC METABOLIC PANELon 10-2 Anion gap [Moles/Vol] 6 mmol/L Normal 3-13 [facility] Comment on above: Performed By: #### L AB113, LAB15, [id number] ####Typesetter Apprentice: MARY SOTELO ([phone])[facility] ([facility])[address] [place] [address] Calcium [Mass/Vol] 7.3 mg/dL Low 8.4-10.4 [facility] Comment on above: Performed By: #### L AB113, LAB15, [id number] ####Typesetter Apprentice: MARY SOTELO ([phone])[facility] ([facility])[address] [place] [address] Chloride [Moles/Vol] 100 mmol/L Normal 98-107 [facility] Comment on above: Performed By: #### L AB113, LAB15, [id number] ####Typesetter Apprentice: MARY SOTELO ([phone])[facility] ([facility])[address] [place] [address] [place] CO2 [Moles/Vol] 25 mmol/L Normal 22-30 [facility] Comment on above: Performed By: #### L AB113, LAB15, [id number] ####Typesetter Apprentice: MARY SOTELO ([phone])[facility] ([facility])[address] [place] [address] Creatinine [Mass/Vol] 2.15 mg/dL High 0.52-1.04 [facility] Comment on above: Performed By: #### L AB113, LAB15, [id number] ####Typesetter Apprentice: MARY SOTELO ([phone])[facility] ([facility])[address] [place] [address] [place] GLOMERULAR FILTRATION RATE ML/MIN/1.73 SQ M.PREDICTED 25.2 mL/min/1.73m*2 Low >60.0 [facility] Comment on above: Result Comment: Calc ulation based on the Chronic Kidney Disease Epidemiology Collaboration (CKD-EPI) equation refit without adjustment for race Performed By: #### L AB113, LAB15, [id number] ####Typesetter Apprentice: MARY SOTELO ([phone])[facility] ([facility])[address] [place] [address] Glucose [Mass/Vol] 282 mg/dL High 70-100 [facility] Comment on above: Performed By: #### L AB113, LAB15, [id number] ####Typesetter Apprentice: MARY SOTELO ([phone])[facility])[address] [place] [address] Potassium [Moles/Vol] 3.9 mmol/L Normal 3.5-5.1 [facility] Comment on above: Performed By: #### Dora AB113, LAB15, [id number] ####Typesetter Apprentice: MARY SOTELO ([phone])[facility] ([facility])[address] [place] [address] Sodium [Moles/Vol] 130 mmol/L Low 135-145 [facility] Comment on above: Performed By: #### L AB113, LAB15, [id number] ####Typesetter Apprentice: MARY SOTELO ([phone])[facility])[address] [place] [address] Urea nitrogen [Mass/Vol] 20 mg/dL High 7-17 [facility] Comment on above: Performed By: #### L [id number], [id number], [id number] ####Typesetter Apprentice: MARY SOTELO ([phone])[facility])[address] [place] [address] Basic metabolic 1998 panelon 08-24-2024 Anion gap [Moles/Vol] 6 mmol/L 3 - 13 mmol/L [facility] Calcium [Mass/Vol] 7.3 mg/dL Low 8.4 - 10. 4 mg/dL [facility] Chloride [Moles/Vol] 100 mmol/L 98 - 10 7 mmol/L [facility] CO2 [Moles/Vol] 25 mmol/L 22 - 30 mmol/L [facility] Creatinine [Mass/Vol] 2.15 mg/dL High 0.52 - 1.04 mg/dL [facility] GFR/1.73 sq M.predicted (S/P/Bld) [Vol rate/Area] 25.2 mL/min Low - PINF [facility] Glucose [Mass/Vol] 282 mg/dL High 70 - 100 mg/dL [facility] Interpretation and review of laboratory results Abnormal [facility] Potassium [Moles/Vol] 3.9 mmol/L 3.5 - 5.1 mmol/L [facility] Sodium [Moles/Vol] 130 mmol/L Low 135 - 145 mmol/L [facility] Urea nitrogen [Mass/Vol] 20 mg/dL High 7 - 17 mg/dL [facility] CBC W Auto Differential pane l (Bld)on 08-24-2024 Basophils (Bld) [#/Vol] 0 10*3/uL 0.0 - 0.2 10*3/uL [facility] Basophils/100 WBC (Bld) 0.5 % 0.0 - 2.0 % [facility] Eosinophils (Bld) [#/Vol] 0.4 10*3/uL 0.0 - 0.5 10*3/uL [facility] Eosinophils/100 WBC (Bld) 7.2 % High 0.0 - 6.0 % [facility] Erythrocyte distribution width (RBC) [Ratio] 16.3 % High 11.5 - 15.0 % [facility] Hematocrit (Bld) [Volume fraction] 25.5 % Low 35.0 - 47.0 % [facility] Hemoglobin (Bld) [Mass/Vol] 8.2 g/dL Low 11.7 - 16.0 g/dL [facility] Immature granulocytes (Bld) [#/Vol] 0 10*3/uL NINF - 0.1 10*3/uL [facility] Immature granulocytes/100 WBC (Bld) 0.3 % 0.0 - 2.0 % [facility] Interpretation and review of laboratory results Abnormal [facility] Lymphocytes (Bld) [#/Vol] 1.1 10*3/uL 1.0 - 4.3 10*3/uL [facility] Lymphocytes/100 WBC (Bld) 18.6 % 15.0 - 45.0 % [facility] MCH (RBC) [Entitic mass] 29.1 pg 26.0 - 34.0 pg [facility] MCHC (RBC) [Mass/Vol] 32.2 % 30.5 - 36.0 % [facility] MCV (RBC) [Entitic vol] 90.4 fL 77.0 - 99.0 fL [facility] Monocytes (Bld) [#/Vol] 0.4 10*3/uL 0.0 - 0.9 10*3/uL [facility] Monocytes/100 WBC (Bld) 7.6 % 5.0 - 13.0 % [facility] Neutrophils (Bld) [#/Vol] 3.8 10*3/uL 1.8 - 7.5 10*3/uL [facility] Neutrophils/100 WBC (Bld) 65.8 % 38.0 - 82.0 % [facility] Nucleated RBC/100 WBC (Bld) [Ratio] 0 % [facility] Platelet mean volume (Bld) [Entitic vol] 10.6 fL 9.0 - 12.7 fL [facility] Platelets (Bld) [#/Vol] 198 10*3/uL 140 - 440 10*3/uL [facility] RBC (Bld) [#/Vol] 2.82 10*6/uL Low 3.80 - 5.2 0 10*6/uL [facility] WBC (Bld) [#/Vol] 5.8 10*3/uL 3.6 - 10.7 10*3/uL [facility] CBC WITH AUTO DIFFERENTIALon 08-24-2024 Basophils (Bld) [#/Vol] 0.0 10*3/uL Normal 0.0-0.2 [facility] Comment on above: Performed By: #### L [id number] ####Typesetter Apprentice: MARY SOTELO ([phone])[facility] ([address] Basophils/100 WBC (Bld) 0.5 % Normal 0.0-2.0 [facility] Comment on above: Performed By: #### L [id number] ####Typesetter Apprentice: MARY SOTELO ([phone])[facility])[address] [place] [address] Eosinophils (Bld) [#/Vol] 0.4 10*3/uL Normal 0.0-0.5 [facility] Comment on above: Performed By: #### L [id number] ####Typesetter Apprentice: MARY SOTELO ([phone])[facility])[address] [place] [address] Eosinophils/100 WBC (Bld) 7.2 % High 0.0-6.0 [facility] Comment on above: Performed By: #### L [id number] ####Typesetter Apprentice: MARY SOTELO ([phone])[address] Erythrocyte distribution width (RBC) [Ratio] 16.3 % High 11.5-15.0 [facility] Comment on above: Performed By: #### L [id number] ####Typesetter Apprentice: MARY SOTELO ([phone])[facility])[address] [place] [address] Hematocrit (Bld) [Volume fraction] 25.5 % Low 35.0-47.0 [facility] Comment on above: Performed By: #### L [id number] ####Typesetter Apprentice: MARY SOTELO ([phone])[address] Hemoglobin (Bld) [Mass/Vol] 8.2 g/dL Low 11.7-16.0 [facility] Comment on above: Performed By: #### L [id number] ####Typesetter Apprentice: MARY SOTELO ([phone])[facility])[address] [place] [address] IMMATURE GRANS % 0.3 % Normal 0.0-2.0 [facility] Comment on above: Performed By: #### L [id number] ####Typesetter Apprentice: MARY SOTELO ([phone])[address] IMMATURE GRANS ABSOLUTE 0.0 10*3/uL Normal <0.1 [facility] Comment on above: Performed By: #### L [id number] ####Typesetter Apprentice: MARY SOTELO ([phone])[facility])[address] [place] [address] Lymphocytes (Bld) [#/Vol] 1.1 10*3/uL Normal 1.0-4.3 [facility] Comment on above: Performed By: #### L [id number] ####Typesetter Apprentice: MARY SOTELO ([phone])[facility])[address] [place] [address] Lymphocytes/100 WBC (Bld) 18.6 % Normal 15.0-45.0 [facility] Comment on above: Performed By: #### L [id number] ####Typesetter Apprentice: MARY SOTELO ([phone])[facility])[address] [place] [address] MCH (RBC) [Entitic mass] 29.1 pg Normal 26.0-34.0 [facility] Comment on above: Performed By: #### L [id number] ####Typesetter Apprentice: MARY SOTELO ([phone])[facility])[address] [place] [address] MCHC 32.2 % Normal 30.5-36.0 [facility] Comment on above: Performed By: #### L [id number] ####Typesetter Apprentice: MARY SOTELO ([phone])[facility])[address] [place] [address] MCV (RBC) [Entitic vol] 90.4 fL Normal 77.0-99.0 [facility] Comment on above: Performed By: #### L [id number] ####Typesetter Apprentice: MARY SOTELO ([phone])[facility])[address] [place] [address] Monocytes (Bld) [#/Vol] 0.4 10*3/uL Normal 0.0-0.9 [facility] Comment on above: Performed By: #### L [id number] ####Typesetter Apprentice: MARY SOTELO ([phone])[facility] ([facility])[address] [place] [address] Monocytes/100 WBC (Bld) 7.6 % Normal 5.0-13.0 [facility] Comment on above: Performed By: #### L [id number] ####Typesetter Apprentice: MARY SOTELO ([phone])[facility] ([facility])[address] [place] [address] NEUTROPHILS ABSOLUTE 3.8 10*3/uL Normal 1.8-7.5 [facility] Comment on above: Performed By: #### L [id number] ####Typesetter Apprentice: MARY SOTELO ([phone])[facility] ([facility])[address] [place] [address] Neutrophils/100 WBC (Bld) 65.8 % Normal 38.0-82.0 [facility] Comment on above: Performed By: #### L [id number] ####Typesetter Apprentice: MARY SOTELO ([phone])[facility] ([facility])[address] [place] [address] NRBC 0.0 /100 WBCs Normal 0.0-2.0 [facility] Comment on above: Performed By: #### L [id number] ####Typesetter Apprentice: MARY SOTELO ([phone])[facility] ([facility])[address] [place] [address] Platelet mean volume (Bld) [Entitic vol] 10.6 fL Normal 9.0-12.7 [facility] Comment on above: Performed By: #### L [id number] ####Typesetter Apprentice: MARY SOTELO ([phone])[facility] ([facility])[address] [place] [address] Platelets (Bld) [#/Vol] 198 10*3/uL Normal 140-440 [facility] Comment on above: Performed By: #### L [id number] ####Typesetter Apprentice: MARY SOTELO ([phone])[facility])[address] [place] [address] RBC (Bld) [#/Vol] 2.82 10*6/uL Low 3.80-5.20 [facility] Comment on above: Performed By: #### L [id number] ####Typesetter Apprentice: MARY SOTELO ([phone])[facility])[address] [place] [address] WBC (Bld) [#/Vol] 5.8 10*3/uL Normal 3.6-10.7 [facility] Comment on above: Performed By: #### L [id number] ####Typesetter Apprentice: MARY SOTELO ([phone])[facility])[address] [place] [address] Laboratory - Chemistry and C hemistry - challengeon 08-24-2024 Glucose [Mass/Vol] 293 mg/dL High 70 - 100 mg/dL [facility] Glucose [Mass/Vol] 219 mg/dL High 70 - 100 mg/dL [facility] Glucose [Mass/Vol] 277 mg/dL High 70 - 100 mg/dL [facility] Magnesium [Mass/Vol] 1.8 mg/dL 1.6 - 2 .3 mg/dL [facility] MAGNESIUMon 08-24-2024 Magnesium [Mass/Vol] 1.8 mg/dL Normal 1.6-2.3 [facility] Comment on above: Performed By: #### L AB113, LAB15, [id number] ####Typesetter Apprentice: MARY SOTELO ([phone])[facility])[address] [place] [address] Magnesium [Mass/Vol]on 08-24 Interpretation and review of laboratory results Normal [facility] No Panel Informationon 08-24 Interpretation and review of laboratory results Abnormal [facility] Interpretation and review of laboratory results Abnormal [facility] Interpretation and review of laboratory results Abnormal [facility] PHOSPHORUSon 08-24-2024 Phosphate [Mass/Vol] 1.8 mg/dL Low 2.5-4.5 [facility] Comment on above: Performed By: #### L AB113, LAB15, [id number] ####Typesetter Apprentice: MARY SOTELO ([phone])[facility] [place] [address] [place] Phosphate [Moles/Vol]on 08-04 Interpretation and review of laboratory results Abnormal [facility] Phosphate [Mass/Vol] 1.8 mg/dL Low 2.5 - 4 .5 mg/dL [facility] Progress Noteon 08-24-2024 Progress Note Normal [facility] BASIC METABOLIC PANELon 08-04 Anion gap [Moles/Vol] 5 mmol/L Normal 3-13 [facility] Comment on above: Performed By: #### L AB15, [id number], [id number] ####Typesetter Apprentice: MARY SOTELO ([phone])[facility] ([facility])[address] [place] [address] Calcium [Mass/Vol] 7.3 mg/dL Low 8.4-10.4 [facility] Comment on above: Performed By: #### L AB15, [id number], [id number] ####Typesetter Apprentice: MARY SOTELO ([phone])[facility] ([facility])[address] [place] [address] [place] Chloride [Moles/Vol] 99 mmol/L Normal 98-107 [facility] Comment on above: Performed By: #### L AB15, [id number], [id number] ####Typesetter Apprentice: MARY SOTELO ([phone])[facility] [place] [address] [place] CO2 [Moles/Vol] 27 mmol/L Normal 22-30 [facility] Comment on above: Performed By: #### L AB15, [id number], [id number] ####Typesetter Apprentice: MARY SOTELO ([phone])[facility] ([facility])[address] [place] [address] [place] Creatinine [Mass/Vol] 3.39 mg/dL High 0.52-1.04 [facility] Comment on above: Performed By: #### L AB15, [id number], [id number] ####Typesetter Apprentice: MARY SOTELO ([phone])[facility])[address] [place] [address] GLOMERULAR FILTRATION RATE ML/MIN/1.73 SQ M.PREDICTED 14.6 mL/min/1.73m*2 Low >60.0 [facility] Comment on above: Result Comment: Calc ulation based on the Chronic Kidney Disease Epidemiology Collaboration (CKD-EPI) equation refit without adjustment for race Performed By: #### Dora AB15, [id number], [id number] ####Typesetter Apprentice: MARY SOTELO ([phone])[facility] ([facility])[address] [place] [address] Glucose [Mass/Vol] 299 mg/dL High 70-100 [facility] Comment on above: Performed By: #### Dora AB15, [id number], [id number] ####Typesetter Apprentice: MARY SOTELO ([phone])[facility])[address] [place] [address] Potassium [Moles/Vol] 4.0 mmol/L Normal 3.5-5.1 [facility] Comment on above: Performed By: #### Dora AB15, [id number], [id number] ####Typesetter Apprentice: MARY SOTELO ([phone])[facility])[address] [place] [address] Sodium [Moles/Vol] 130 mmol/L Low 135-145 [facility] Comment on above: Performed By: #### L AB15, [id number], [id number] ####Typesetter Apprentice: MARY SOTELO ([phone])[facility])[address] [place] [address] [place] Urea nitrogen [Mass/Vol] 37 mg/dL High 7-17 [facility] Comment on above: Performed By: #### L AB15, [id number], [id number] ####Typesetter Apprentice: MARY SOTELO ([phone])[facility])[address] [place] [address] Bacteria identified Cx Nom ( U)Ordered By: Kalia Gifford on 08-23-2024 Interpretation and review of laboratory results Abnormal [facility] Basic metabolic 1998 panelon 08-23-2024 Anion gap [Moles/Vol] 5 mmol/L 3 - 13 mmol/L [facility] Calcium [Mass/Vol] 7.3 mg/dL Low 8.4 - 10. 4 mg/dL [facility] Chloride [Moles/Vol] 99 mmol/L 98 - 10 7 mmol/L [facility] CO2 [Moles/Vol] 27 mmol/L 22 - 30 mmol/L [facility] Creatinine [Mass/Vol] 3.39 mg/dL High 0.52 - 1.04 mg/dL [facility] GFR/1.73 sq M.predicted (S/P/Bld) [Vol rate/Area] 14.6 mL/min Low - PINF [facility] Glucose [Mass/Vol] 299 mg/dL High 70 - 100 mg/dL [facility] Interpretation and review of laboratory results Abnormal [facility] Potassium [Moles/Vol] 4 mmol/L 3.5 - 5.1 mmol/L [facility] Sodium [Moles/Vol] 130 mmol/L Low 135 - 145 mmol/L [facility] Urea nitrogen [Mass/Vol] 37 mg/dL High 7 - 17 mg/dL [facility] CARECOORDon 08-23-2024 CARECOORD Normal [facility] CBC W Auto Differential pane l (Bld)on 08-23-2024 Basophils (Bld) [#/Vol] 0 10*3/uL 0.0 - 0.2 10*3/uL [facility] Basophils/100 WBC (Bld) 0.2 % 0.0 - 2.0 % [facility] Eosinophils (Bld) [#/Vol] 0.1 10*3/uL 0.0 - 0.5 10*3/uL [facility] Eosinophils/100 WBC (Bld) 1.1 % 0.0 - 6.0 % [facility] Erythrocyte distribution width (RBC) [Ratio] 15.9 % High 11.5 - 15.0 % [facility] Hematocrit (Bld) [Volume fraction] 25.5 % Low 35.0 - 47.0 % [facility] Hemoglobin (Bld) [Mass/Vol] 8.2 g/dL Low 11.7 - 16.0 g/dL [facility] Immature granulocytes (Bld) [#/Vol] 0 10*3/uL NINF - 0.1 10*3/uL [facility] [employer] Immature granulocytes/100 WBC (Bld) 0.5 % 0.0 - 2.0 % [facility] Interpretation and review of laboratory results Abnormal [facility] Lymphocytes (Bld) [#/Vol] 0.6 10*3/uL Low 1.0 - 4.3 10*3/uL [facility] Lymphocytes/100 WBC (Bld) 14.6 % Low 15.0 - 45.0 % [facility] MCH (RBC) [Entitic mass] 28.9 pg 26.0 - 34.0 pg [facility] MCHC (RBC) [Mass/Vol] 32.2 % 30.5 - 36.0 % [facility] MCV (RBC) [Entitic vol] 89.8 fL 77.0 - 99.0 fL [facility] Monocytes (Bld) [#/Vol] 0.3 10*3/uL 0.0 - 0.9 10*3/uL [facility] Monocytes/100 WBC (Bld) 7.3 % 5.0 - 13.0 % [facility] Neutrophils (Bld) [#/Vol] 3.4 10*3/uL 1.8 - 7.5 10*3/uL [facility] Neutrophils/100 WBC (Bld) 76.3 % 38.0 - 82.0 % [facility] Nucleated RBC/100 WBC (Bld) [Ratio] 0 % [facility] Platelet mean volume (Bld) [Entitic vol] 10.4 fL 9.0 - 12.7 fL [facility] Platelets (Bld) [#/Vol] 167 10*3/uL 140 - 440 10*3/uL [facility] RBC (Bld) [#/Vol] 2.84 10*6/uL Low 3.80 - 5.2 0 10*6/uL [facility] WBC (Bld) [#/Vol] 4.4 10*3/uL 3.6 - 10.7 10*3/uL [facility] CBC WITH AUTO DIFFERENTIALon 08-23-2024 Basophils (Bld) [#/Vol] 0.0 10*3/uL Normal 0.0-0.2 [facility] Comment on above: Performed By: #### L [id number] ####Typesetter Apprentice: MARY SOTELO ([phone])[facility])[address] [place] [address] Basophils/100 WBC (Bld) 0.2 % Normal 0.0-2.0 [facility] Comment on above: Performed By: #### L [id number] ####Typesetter Apprentice: MARY SOTELO ([phone])[facility])[address] [place] [address] Eosinophils (Bld) [#/Vol] 0.1 10*3/uL Normal 0.0-0.5 [facility] Comment on above: Performed By: #### L [id number] ####Typesetter Apprentice: MARY SOTELO ([phone])[address] Eosinophils/100 WBC (Bld) 1.1 % Normal 0.0-6.0 [facility] Comment on above: Performed By: #### L [id number] ####Typesetter Apprentice: MARY SOTELO ([phone])[facility])[address] [place] [address] Erythrocyte distribution width (RBC) [Ratio] 15.9 % High 11.5-15.0 [facility] Comment on above: Performed By: #### L [id number] ####Typesetter Apprentice: MARY SOTELO ([phone])[address] Hematocrit (Bld) [Volume fraction] 25.5 % Low 35.0-47.0 [facility] Comment on above: Performed By: #### L [id number] ####Typesetter Apprentice: MARY SOTELO ([phone])[facility])[address] [place] [address] Hemoglobin (Bld) [Mass/Vol] 8.2 g/dL Low 11.7-16.0 [facility] Comment on above: Performed By: #### L [id number] ####Typesetter Apprentice: MARY SOTELO ([phone])[facility])[address] [place] [address] IMMATURE GRANS % 0.5 % Normal 0.0-2.0 [facility] Comment on above: Performed By: #### L [id number] ####Typesetter Apprentice: MARY SOTELO ([phone])[facility])[address] [place] [address] IMMATURE GRANS ABSOLUTE 0.0 10*3/uL Normal <0.1 [facility] Comment on above: Performed By: #### L [id number] ####Typesetter Apprentice: MARY SOTELO ([phone])[facility])[address] [place] [address] Lymphocytes (Bld) [#/Vol] 0.6 10*3/uL Low 1.0-4.3 [facility] Comment on above: Performed By: #### L [id number] ####Typesetter Apprentice: MARY SOTELO ([phone])[facility])[address] [place] [address] Lymphocytes/100 WBC (Bld) 14.6 % Low 15.0-45.0 [facility] Comment on above: Performed By: #### L [id number] ####Typesetter Apprentice: MARY SOTELO ([phone])[facility])[address] [place] [address] MCH (RBC) [Entitic mass] 28.9 pg Normal 26.0-34.0 [facility] Comment on above: Performed By: #### L [id number] ####Typesetter Apprentice: MARY SOTELO ([phone])[facility])[address] [place] [address] MCHC 32.2 % Normal 30.5-36.0 [facility] Comment on above: Performed By: #### L [id number] ####Typesetter Apprentice: MARY SOTELO ([phone])[facility])[address] [place] [address] MCV (RBC) [Entitic vol] 89.8 fL Normal 77.0-99.0 [facility] Comment on above: Performed By: #### L [id number] ####Typesetter Apprentice: MARY SOTELO ([phone])[facility])[address] [place] [address] Monocytes (Bld) [#/Vol] 0.3 10*3/uL Normal 0.0-0.9 [facility] Comment on above: Performed By: #### L [id number] ####Typesetter Apprentice: MARY SOTELO ([phone])[facility] ([facility])[address] [place] [address] Monocytes/100 WBC (Bld) 7.3 % Normal 5.0-13.0 [facility] Comment on above: Performed By: #### L [id number] ####Typesetter Apprentice: MARY SOTELO ([phone])[facility])[address] [place] [address] NEUTROPHILS ABSOLUTE 3.4 10*3/uL Normal 1.8-7.5 [facility] Comment on above: Performed By: #### L [id number] ####Typesetter Apprentice: MARY SOTELO ([phone])[facility] ([facility])[address] [place] [address] Neutrophils/100 WBC (Bld) 76.3 % Normal 38.0-82.0 [facility] Comment on above: Performed By: #### L [id number] ####Typesetter Apprentice: MARY SOTELO ([phone])[facility])[address] [place] [address] NRBC 0.0 /100 WBCs Normal 0.0-2.0 [facility] Comment on above: Performed By: #### L [id number] ####Typesetter Apprentice: MARY SOTELO ([phone])[facility])[address] [place] [address] Platelet mean volume (Bld) [Entitic vol] 10.4 fL Normal 9.0-12.7 [facility] Comment on above: Performed By: #### L [id number] ####Typesetter Apprentice: MARY SOTELO ([phone])[facility] ([facility])[address] [place] [address] Platelets (Bld) [#/Vol] 167 10*3/uL Normal 140-440 [facility] Comment on above: Performed By: #### L [id number] ####Typesetter Apprentice: MARY SOTELO ([phone])[facility] ([facility])[address] [place] [address] RBC (Bld) [#/Vol] 2.84 10*6/uL Low 3.80-5.20 [facility] Comment on above: Performed By: #### L [id number] ####Typesetter Apprentice: MARY SOTELO ([phone])[facility] ([facility])[address] [place] [address] WBC (Bld) [#/Vol] 4.4 10*3/uL Normal 3.6-10.7 [facility] Comment on above: Performed By: #### L [id number] ####Typesetter Apprentice: MARY SOTELO ([phone])[facility] ([facility])[address] [place] [address] Consulton 08-23-2024 Consult Normal [facility] HBV surface Ab IA Qnon 08-23 [facility] HBV surface Ag IA Qlon 08-23 Interpretation and review of laboratory results Normal [facility] HEPATITIS B SURFACE ANTIBODY on 08-23-2024 HEPATITIS B VIRUS SURFACE AB <8.0 Normal [facility] Comment on above: Result Comment: ORDE R COMMENTS:Interpretation:<8.0 Non-Reactive8.0-11.9 Equivocal>= 12.0 Ab DetectedNote: If an equivocal result is interpreted, an antibody status is unable to be determined. Collect new specimen if clinically indicated. Performed By: #### L [id number], [id number] ####Typesetter Apprentice: MARY SOTELO ([phone])[facility])[address] [place] [address] HEPATITIS B SURFACE ANTIGENo n 08-23-2024 HEPATITIS B VIRUS SURFACE AG Not detected Normal Not Detected [facility] Comment on above: Performed By: #### L [id number], [id number] ####Typesetter Apprentice: MARY SOTELO ([phone])[facility] [place] [address] [place] IDNon 08-23-2024 IDN Normal [facility] IDN Normal [facility] - Chemistry and C hemistry - challengeon 08-23-2024 Glucose [Mass/Vol] 126 mg/dL High 70 - 100 mg/dL [facility] Glucose [Mass/Vol] 166 mg/dL High 70 - 100 mg/dL [facility] Glucose [Mass/Vol] 129 mg/dL High 70 - 100 mg/dL [facility] Glucose [Mass/Vol] 287 mg/dL High 70 - 100 mg/dL [facility] Glucose [Mass/Vol] 304 mg/dL High 70 - 100 mg/dL [facility] Magnesium [Mass/Vol] 1.9 mg/dL 1.6 - 2 .3 mg/dL [facility] Laboratory - Microbiology an d Antimicrobial susceptibilityon 08-23-2024 HBV surface Ab IA Qn mIU/mL [facility] HBV surface Ag IA Ql Not detected Not Detected [facility] Laboratory - Microbiology an d Antimicrobial susceptibilityOrdered By: Kalia Gifford on 08-23-2024 Bacteria identified Cx Nom (U) Normal urogenital keven present [facility] Bacteria identified Cx Nom (U) 50,000-90,000 CFU/mL Abbi albicans Abnormal [facility] MAGNESIUMon 08-23-2024 Magnesium [Mass/Vol] 1.9 mg/dL Normal 1.6-2.3 [facility] Comment on above: Performed By: #### L AB15, [id number], [id number] ####Typesetter Apprentice: MARY SOTELO ([phone])[facility] [place] [address] No Panel Informationon 08-23 Interpretation and review of laboratory results Abnormal [facility] Interpretation and review of laboratory results Abnormal [facility] Interpretation and review of laboratory results Abnormal [facility] Interpretation and review of laboratory results Abnormal [facility] Interpretation and review of laboratory results Abnormal [facility] Interpretation and review of laboratory results Normal [facility] Nursing Noteon 08-23-2024 Nursing Note Normal [facility] PHOSPHORUSon 08-23-2024 Phosphate [Mass/Vol] 2.5 mg/dL Normal 2.5-4.5 [facility] Comment on above: Performed By: #### L AB15, [id number], [id number] ####Typesetter Apprentice: MARY SOTELO ([phone])[facility] ([facility])[address] [place] [address] [place] Phosphate [Moles/Vol]on 08-04 Phosphate [Mass/Vol] 2.5 mg/dL 2.5 - 4 .5 mg/dL [facility] Progress Noteon 08-23-2024 Progress Note Normal [facility] Progress Note Normal [facility] Progress Note Normal [facility] Progress Note Normal [facility] US Kidneyon 08-23-2024 [facility] Radiology Study observation (narrative) [facility] KidneyOrdered By: Daniel esquivel on 08-23-2024 [facility] Work Phone: US RENAL COMPLETEon 08-23-20 US RENAL COMPLETE Normal [facility] ealt System [facility] BASIC METABOLIC PANELon 08-04 Anion gap [Moles/Vol] 5 mmol/L Normal 3-13 [facility] Comment on above: Performed By: #### L ABErika, LAB15, [id number] ####Typesetter Apprentice: MARY SOTELO ([phone])[facility] ([facility])[address] [place] [address] [place] Calcium [Mass/Vol] 7.3 mg/dL Low 8.4-10.4 [facility] Comment on above: Performed By: #### L NOHEMI, LAB15, [id number] ####Typesetter Apprentice: MARY SOTELO ([phone])[facility] ([facility])[address] [place] [address] [place] Chloride [Moles/Vol] 97 mmol/L Low 98-107 [facility] Comment on above: Performed By: #### L AB103, LAB15, [id number] ####Typesetter Apprentice: MARY SOTELO ([phone])[facility] ([facility])[address] [place] [address] CO2 [Moles/Vol] 28 mmol/L Normal 22-30 [facility] Comment on above: Performed By: #### Dora AB103, LAB15, [id number] ####Typesetter Apprentice: MARY SOTELO ([phone])[facility] ([facility])[address] [place] [address] Creatinine [Mass/Vol] 3.04 mg/dL High 0.52-1.04 [facility] Comment on above: Performed By: #### Dora SONG, LAB15, [id number] ####Typesetter Apprentice: MARY SOTELO ([phone])[facility])[address] [place] [address] GLOMERULAR FILTRATION RATE ML/MIN/1.73 SQ M.PREDICTED 16.6 mL/min/1.73m*2 Low >60.0 [facility] Comment on above: Result Comment: Calc ulation based on the Chronic Kidney Disease Epidemiology Collaboration (CKD-EPI) equation refit without adjustment for race Performed By: #### Dora SONG, LAB15, [id number] ####Typesetter Apprentice: MARY SOTELO ([phone])[facility] ([facility])[address] [place] [address] [place] Glucose [Mass/Vol] 309 mg/dL High 70-100 [facility] Comment on above: Performed By: #### Dora AB103, LAB15, [id number] ####Typesetter Apprentice: MARY SOTELO ([phone])[facility])[address] [place] [address] [place] Potassium [Moles/Vol] 3.4 mmol/L Low 3.5-5.1 [facility] Comment on above: Performed By: #### Dora AB103, LAB15, [id number] ####Typesetter Apprentice: MARY SOTELO ([phone])[facility])[address] [place] [address] [place] Sodium [Moles/Vol] 130 mmol/L Low 135-145 [facility] Comment on above: Performed By: #### L AB103, LAB15, [id number] ####Typesetter Apprentice: MARY SOTELO ([phone])[facility] ([facility])[address] [place] [address] Urea nitrogen [Mass/Vol] 28 mg/dL High 7-17 [facility] Comment on above: Performed By: #### L AB103, LAB15, [id number] ####Typesetter Apprentice: MARY SOTELO ([phone])[facility] [place] [address] Basic metabolic 1998 panelon 08-22-2024 Anion gap [Moles/Vol] 5 mmol/L 3 - 13 mmol/L [facility] Calcium [Mass/Vol] 7.3 mg/dL Low 8.4 - 10. 4 mg/dL [facility] Chloride [Moles/Vol] 97 mmol/L Low 98 - 10 7 mmol/L [facility] CO2 [Moles/Vol] 28 mmol/L 22 - 30 mmol/L [facility] Creatinine [Mass/Vol] 3.04 mg/dL High 0.52 - 1.04 mg/dL [facility] GFR/1.73 sq M.predicted (S/P/Bld) [Vol rate/Area] 16.6 mL/min Low - PINF [facility] Glucose [Mass/Vol] 309 mg/dL High 70 - 100 mg/dL [facility] Interpretation and review of laboratory results Abnormal [facility] Potassium [Moles/Vol] 3.4 mmol/L Low 3.5 - 5.1 mmol/L [facility] Sodium [Moles/Vol] 130 mmol/L Low 135 - 145 mmol/L [facility] Urea nitrogen [Mass/Vol] 28 mg/dL High 7 - 17 mg/dL [facility] CALCIUM, IONIZEDon CALCIUM IONIZED 3.90 mg/dL Low 4.30-5.20 [facility] Comment on above: Performed By: #### L AB54 ####Typesetter Apprentice: MARY SOTELO ([phone])[facility] [place] [address] [place] PH, IONIZED CALCIUM 7.42 Normal 7.31-7.46 [facility] Comment on above: Performed By: #### L AB54 ####Typesetter Apprentice: MARY SOTELO ([phone])[facility] ([facility])[address] [place] [address] CBC W Auto Differential pane l (Bld)on 08-22-2024 Basophils (Bld) [#/Vol] 0 10*3/uL 0.0 - 0.2 10*3/uL [facility] Basophils/100 WBC (Bld) 0.4 % 0.0 - 2.0 % [facility] Eosinophils (Bld) [#/Vol] 0.4 10*3/uL 0.0 - 0.5 10*3/uL [facility] Eosinophils/100 WBC (Bld) 7.7 % High 0.0 - 6.0 % [facility] Erythrocyte distribution width (RBC) [Ratio] 16.2 % High 11.5 - 15.0 % [facility] Hematocrit (Bld) [Volume fraction] 26.6 % Low 35.0 - 47.0 % [facility] Hemoglobin (Bld) [Mass/Vol] 8.6 g/dL Low 11.7 - 16.0 g/dL [facility] Immature granulocytes (Bld) [#/Vol] 0 10*3/uL NINF - 0.1 10*3/uL [facility] Immature granulocytes/100 WBC (Bld) 0.4 % 0.0 - 2.0 % [facility] Interpretation and review of laboratory results Abnormal [facility] Lymphocytes (Bld) [#/Vol] 0.9 10*3/uL Low 1.0 - 4.3 10*3/uL [facility] Lymphocytes/100 WBC (Bld) 18.2 % 15.0 - 45.0 % [facility] MCH (RBC) [Entitic mass] 29.8 pg 26.0 - 34.0 pg [facility] MCHC (RBC) [Mass/Vol] 32.3 % 30.5 - 36.0 % [facility] MCV (RBC) [Entitic vol] 92 fL 77.0 - 99.0 fL [facility] Monocytes (Bld) [#/Vol] 0.4 10*3/uL 0.0 - 0.9 10*3/uL [facility] Monocytes/100 WBC (Bld) 7.9 % 5.0 - 13.0 % [facility] Neutrophils (Bld) [#/Vol] 3.1 10*3/uL 1.8 - 7.5 10*3/uL [facility] Neutrophils/100 WBC (Bld) 65.4 % 38.0 - 82.0 % [facility] Nucleated RBC/100 WBC (Bld) [Ratio] 0 % [facility] Platelet mean volume (Bld) [Entitic vol] 10.1 fL 9.0 - 12.7 fL [facility] Platelets (Bld) [#/Vol] 161 10*3/uL 140 - 440 10*3/uL [facility] RBC (Bld) [#/Vol] 2.89 10*6/uL Low 3.80 - 5.2 0 10*6/uL [facility] WBC (Bld) [#/Vol] 4.8 10*3/uL 3.6 - 10.7 10*3/uL [facility] CBC WITH AUTO DIFFERENTIALon 08-22-2024 Basophils (Bld) [#/Vol] 0.0 10*3/uL Normal 0.0-0.2 [facility] Comment on above: Performed By: #### L [id number] ####Typesetter Apprentice: MARY SOTELO ([phone])[facility])[address] [place] [address] Basophils/100 WBC (Bld) 0.4 % Normal 0.0-2.0 [facility] Comment on above: Performed By: #### L [id number] ####Typesetter Apprentice: MARY SOTELO ([phone])[facility] ([facility])[address] [place] [address] [place] Eosinophils (Bld) [#/Vol] 0.4 10*3/uL Normal 0.0-0.5 [facility] Comment on above: Performed By: #### L [id number] ####Typesetter Apprentice: MARY SOTELO ([phone])[facility] ([facility])[address] [place] [address] [place] Eosinophils/100 WBC (Bld) 7.7 % High 0.0-6.0 [facility] Comment on above: Performed By: #### L [id number] ####Typesetter Apprentice: MARY SOTELO ([phone])[address] Erythrocyte distribution width (RBC) [Ratio] 16.2 % High 11.5-15.0 [facility] Comment on above: Performed By: #### L [id number] ####Typesetter Apprentice: MARY SOTELO ([phone])[address] Hematocrit (Bld) [Volume fraction] 26.6 % Low 35.0-47.0 [facility] Comment on above: Performed By: #### L [id number] ####Typesetter Apprentice: MARY SOTELO ([phone])[address] Hemoglobin (Bld) [Mass/Vol] 8.6 g/dL Low 11.7-16.0 [facility] Comment on above: Performed By: #### L [id number] ####Typesetter Apprentice: MARY SOTELO ([phone])[address] IMMATURE GRANS % 0.4 % Normal 0.0-2.0 [facility] Comment on above: Performed By: #### L [id number] ####Typesetter Apprentice: MARY SOTELO ([phone])[address] IMMATURE GRANS ABSOLUTE 0.0 10*3/uL Normal <0.1 [facility] Comment on above: Performed By: #### L [id number] ####Typesetter Apprentice: MARY SOTELO ([phone])[address] Lymphocytes (Bld) [#/Vol] 0.9 10*3/uL Low 1.0-4.3 [facility] Comment on above: Performed By: #### L [id number] ####Typesetter Apprentice: MARY SOTELO ([phone])[facility])[address] [place] [address] Lymphocytes/100 WBC (Bld) 18.2 % Normal 15.0-45.0 [facility] Comment on above: Performed By: #### L [id number] ####Typesetter Apprentice: MARY SOTELO ([phone])[facility])[address] [place] [address] MCH (RBC) [Entitic mass] 29.8 pg Normal 26.0-34.0 [facility] Comment on above: Performed By: #### L [id number] ####Typesetter Apprentice: MARY SOTELO ([phone])[facility])[address] [place] [address] MCHC 32.3 % Normal 30.5-36.0 [facility] Comment on above: Performed By: #### L [id number] ####Typesetter Apprentice: MARY SOTELO ([phone])[facility] ([facility])[address] [place] [address] MCV (RBC) [Entitic vol] 92.0 fL Normal 77.0-99.0 [facility] Comment on above: Performed By: #### L [id number] ####Typesetter Apprentice: MARY SOTELO ([phone])[facility])[address] [place] [address] Monocytes (Bld) [#/Vol] 0.4 10*3/uL Normal 0.0-0.9 [facility] Comment on above: Performed By: #### L [id number] ####Typesetter Apprentice: MARY SOTELO ([phone])[facility])[address] [place] [address] Monocytes/100 WBC (Bld) 7.9 % Normal 5.0-13.0 [facility] Comment on above: Performed By: #### L [id number] ####Typesetter Apprentice: MARY SOTELO ([phone])[facility])[address] [place] [address] NEUTROPHILS ABSOLUTE 3.1 10*3/uL Normal 1.8-7.5 [facility] Comment on above: Performed By: #### L [id number] ####Typesetter Apprentice: MARY SOTELO ([phone])[facility] ([facility])[address] [place] [address] Neutrophils/100 WBC (Bld) 65.4 % Normal 38.0-82.0 [facility] Comment on above: Performed By: #### L [id number] ####Typesetter Apprentice: MARY SOTELO ([phone])[facility] ([facility])[address] [place] [address] NRBC 0.0 /100 WBCs Normal 0.0-2.0 [facility] Comment on above: Performed By: #### L [id number] ####Typesetter Apprentice: MARY SOTELO ([phone])[facility] ([facility])[address] [place] [address] Platelet mean volume (Bld) [Entitic vol] 10.1 fL Normal 9.0-12.7 [facility] Comment on above: Performed By: #### L [id number] ####Typesetter Apprentice: MARY SOTELO ([phone])[facility] ([facility])[address] [place] [address] Platelets (Bld) [#/Vol] 161 10*3/uL Normal 140-440 [facility] Comment on above: Performed By: #### L [id number] ####Typesetter Apprentice: MARY SOTELO ([phone])[facility] ([facility])[address] [place] [address] RBC (Bld) [#/Vol] 2.89 10*6/uL Low 3.80-5.20 [facility] Comment on above: Performed By: #### L [id number] ####Typesetter Apprentice: MARY SOTELO ([phone])[facility] ([facility])[address] [place] [address] [place] WBC (Bld) [#/Vol] 4.8 10*3/uL Normal 3.6-10.7 [facility] Comment on above: Performed By: #### L [id number] ####Typesetter Apprentice: MARY SOTELO ([phone])[facility] ([facility])[address] [place] [address] Calcium.ionized [Moles/Vol]o n 08-22-2024 Calcium.ionized (Bld) [Moles/Vol] 3.9 mg/dL Low 4.30 - 5.20 mg/dL [facility] Interpretation and review of laboratory results Abnormal [facility] PH, IONIZED CALCIUM 7.42 7.31 - 7.46 [facility] IDNon 08-22-2024 IDN Normal [facility] - Chemistry and C hemistry - challengeon 08-22-2024 Glucose [Mass/Vol] 257 mg/dL High 70 - 100 mg/dL [facility] Glucose [Mass/Vol] 255 mg/dL High 70 - 100 mg/dL [facility] Glucose [Mass/Vol] 287 mg/dL High 70 - 100 mg/dL [facility] Glucose [Mass/Vol] 310 mg/dL High 70 - 100 mg/dL [facility] Magnesium [Mass/Vol] 2 mg/dL 1.6 - 2 .3 mg/dL [facility] MAGNESIUMon 08-22-2024 Magnesium [Mass/Vol] 2.0 mg/dL Normal 1.6-2.3 [facility] Comment on above: Performed By: #### L AB103, LAB15, [id number] ####Typesetter Apprentice: MARY SOTELO ([phone])[facility] ([facility])[address] [place] [address] Magnesium [Mass/Vol]on 08-22 Interpretation and review of laboratory results Normal [facility] No Panel Informationon 08-22 Interpretation and review of laboratory results Abnormal [facility] Interpretation and review of laboratory results Abnormal [facility] Interpretation and review of laboratory results Abnormal [facility] Interpretation and review of laboratory results Abnormal [facility] PHOSPHORUSon 08-22-2024 Phosphate [Mass/Vol] 2.3 mg/dL Low 2.5-4.5 [facility] Comment on above: Performed By: #### Dora AB103, LAB15, [id number] ####Typesetter Apprentice: MARY SOTELO ([phone])[facility] ([facility])[address] [place] [address] Phosphate [Moles/Vol]on 08-04 Interpretation and review of laboratory results Abnormal [facility] Phosphate [Mass/Vol] 2.3 mg/dL Low 2.5 - 4 .5 mg/dL [facility] Progress Noteon 08-22-2024 Progress Note Normal [facility] Progress Note Normal [facility] Progress Note Normal [facility] Progress Note Normal [facility] BASIC METABOLIC PANELon 08-03 Anion gap [Moles/Vol] 7 mmol/L Normal 3-13 [facility] Comment on above: Performed By: #### Dora ABGabbie, LAB15, [id number] ####Typesetter Apprentice: MARY SOTELO ([phone])[facility] [place] [address] [place] Calcium [Mass/Vol] 7.8 mg/dL Low 8.4-10.4 [facility] Comment on above: Performed By: #### Dora ABGabbie, LAB15, [id number] ####Typesetter Apprentice: MARY SOTELO ([phone])[facility] [place] [address] [place] Chloride [Moles/Vol] 99 mmol/L Normal 98-107 [facility] Comment on above: Performed By: #### Dora AB113, LAB15, [id number] ####Typesetter Apprentice: MARY SOTELO ([phone])[facility] [place] [address] [place] CO2 [Moles/Vol] 27 mmol/L Normal 22-30 [facility] Comment on above: Performed By: #### L AB113, LAB15, [id number] ####Typesetter Apprentice: MARY SOTELO ([phone])[facility] ([facility])[address] [place] [address] [place] Creatinine [Mass/Vol] 4.52 mg/dL High 0.52-1.04 [facility] Comment on above: Performed By: #### L AB113, LAB15, [id number] ####Typesetter Apprentice: MARY SOTELO ([phone])[facility])[address] [place] [address] [place] GLOMERULAR FILTRATION RATE ML/MIN/1.73 SQ M.PREDICTED 10.3 mL/min/1.73m*2 Low >60.0 [facility] Comment on above: Result Comment: Calc ulation based on the Chronic Kidney Disease Epidemiology Collaboration (CKD-EPI) equation refit without adjustment for race Performed By: #### L AB113, LAB15, [id number] ####Typesetter Apprentice: MARY SOTELO ([phone])[facility] ([facility])[address] [place] [address] Glucose [Mass/Vol] 73 mg/dL Normal 70-100 [facility] Comment on above: Performed By: #### Dora AB113, LAB15, [id number] ####Typesetter Apprentice: MARY SOTELO ([phone])[facility] ([facility])[address] [place] [address] Potassium [Moles/Vol] 3.2 mmol/L Low 3.5-5.1 [facility] Comment on above: Performed By: #### L AB113, LAB15, [id number] ####Typesetter Apprentice: MARY SOTELO ([phone])[facility] ([facility])[address] [place] [address] [place] Sodium [Moles/Vol] 133 mmol/L Low 135-145 [facility] Comment on above: Performed By: #### L AB113, LAB15, [id number] ####Typesetter Apprentice: MARY SOTELO ([phone])[facility])[address] [place] [address] [place] Urea nitrogen [Mass/Vol] 47 mg/dL High 7-17 [facility] Comment on above: Performed By: #### L AB113, LAB15, [id number] ####Typesetter Apprentice: MARY [phone])[facility] ([facility])[address] [place] [address] BLOOD GAS ARTERIALon 10-19-2 024 Base excess Calc (Bld) [Moles/Vol] 3.2 mmol/L High -3.0-3.0 [facility] Comment on above: Performed By: #### L AB76 ####Typesetter Apprentice: MARY SOTELO ([phone])[facility] ([facility])[address] [place] [address] CO2 [Moles/Vol] 30.8 mmol/L High 23.0-27.0 [facility] Comment on above: Performed By: #### L AB76 ####Typesetter Apprentice: MARY SOTELO ([phone])[facility])[address] [place] [address] HCO3 (Bld) [Moles/Vol] 29.2 mmol/L High 21.0-25.0 [facility] Comment on above: Performed By: #### L AB76 ####Typesetter Apprentice: MARY SOTELO ([phone])[facility] ([facility])[address] [place] [address] Hemoglobin (Bld) [Mass/Vol] 10.2 g/dL Normal Screen only [facility] Comment on above: Performed By: #### L AB76 ####Typesetter Apprentice: MARY SOTELO ([phone])[facility])[address] [place] [address] OXYGEN SATURATION (%) IN ARTERIAL BLOOD 96.1 % Normal 95.0-100.0 [facility] Comment on above: Performed By: #### L AB76 ####Typesetter Apprentice: MARY SOTELO ([phone])[facility] ([facility])[address] [place] [address] PCO2 ARTERIAL 51.3 mm Hg High >35.0-<45.0 [facility] Comment on above: Performed By: #### L AB76 ####Typesetter Apprentice: MARY SOTELO ([phone])[facility])[address] [place] [address] PH ARTERIAL 7.373 Normal 7.350-7.450 [facility] Comment on above: Performed By: #### L AB76 ####Typesetter Apprentice: MARY SOTELO ([phone])[facility] ([facility])[address] [place] [address] PO2 ARTERIAL 85.9 mm Hg Normal 80.0-100.0 [facility] Comment on above: Performed By: #### L AB76 ####Typesetter Apprentice: MARY SOTELO ([phone])[facility] ([facility])[address] [place] [address] SOURCE OF OXYGEN CPAP Normal [facility] Comment on above: Result Comment: 30% Performed By: #### L [id number] ####Typesetter Apprentice: MARY SOTELO ([phone])[facility] ([facility])[address] [place] [address] Base excess Calc (Bld) [Moles/Vol] 0.4 mmol/L Normal -3.0-3.0 [facility] Comment on above: Performed By: #### L [id number] ####Typesetter Apprentice: MARY SOTELO ([phone])[facility] ([facility])[address] [place] [address] CO2 [Moles/Vol] 29.5 mmol/L High 23.0-27.0 [facility] Comment on above: Performed By: #### L [id number] ####Typesetter Apprentice: MARY SOTELO ([phone])[facility] ([facility])[address] [place] [address] HCO3 (Bld) [Moles/Vol] 27.7 mmol/L High 21.0-25.0 [facility] Comment on above: Performed By: #### L [id number] ####Typesetter Apprentice: MARY SOTELO ([phone])[facility])[address] [place] [address] Hemoglobin (Bld) [Mass/Vol] 9.8 g/dL Normal Screen only [facility] Comment on above: Performed By: #### L [id number] ####Typesetter Apprentice: MARY SOTELO ([phone])[facility] [place] [address] OXYGEN SATURATION (%) IN ARTERIAL BLOOD 96.6 % Normal 95.0-100.0 [facility] Comment on above: Performed By: #### L [id number] ####Typesetter Apprentice: MARY SOTELO ([phone])[facility] [place] [address] PCO2 ARTERIAL 59.5 mm Hg High >35.0-<45.0 [facility] Comment on above: Performed By: #### L [id number] ####Typesetter Apprentice: MARY SOTELO ([phone])[facility] ([facility])[address] [place] [address] PH ARTERIAL 7.286 Low 7.350-7.450 [facility] Comment on above: Performed By: #### L [id number] ####Typesetter Apprentice: MARY SOTELO ([phone])[facility] [place] [address] PO2 ARTERIAL 88.7 mm Hg Normal 80.0-100.0 [facility] Comment on above: Performed By: #### L [id number] ####Typesetter Apprentice: MARY SOTELO ([phone])[facility] ([facility])[address] [place] [address] SOURCE OF OXYGEN CPAP Normal [facility] Comment on above: Result Comment: 30% Performed By: #### L [id number] ####Typesetter Apprentice: MARY SOTELO ([phone])[facility] [place] [address] Basic metabolic 1998 panelon 08-21-2024 Anion gap [Moles/Vol] 7 mmol/L 3 - 13 mmol/L [facility] Calcium [Mass/Vol] 7.8 mg/dL Low 8.4 - 10. 4 mg/dL [facility] Chloride [Moles/Vol] 99 mmol/L 98 - 10 7 mmol/L [facility] CO2 [Moles/Vol] 27 mmol/L 22 - 30 mmol/L [facility] Creatinine [Mass/Vol] 4.52 mg/dL High 0.52 - 1.04 mg/dL [facility] GFR/1.73 sq M.predicted (S/P/Bld) [Vol rate/Area] 10.3 mL/min Low - PINF [facility] Glucose [Mass/Vol] 73 mg/dL 70 - 100 mg/dL [facility] Interpretation and review of laboratory results Abnormal [facility] Potassium [Moles/Vol] 3.2 mmol/L Low 3.5 - 5.1 mmol/L [facility] Sodium [Moles/Vol] 133 mmol/L Low 135 - 145 mmol/L [facility] Urea nitrogen [Mass/Vol] 47 mg/dL High 7 - 17 mg/dL [facility] CARECOORDon 08-21-2024 CARECOFORT WORTH Normal [facility] CBC W Auto Differential pane l (Bld)on 08-21-2024 Basophils (Bld) [#/Vol] 0 10*3/uL 0.0 - 0.2 10*3/uL [facility] Basophils/100 WBC (Bld) 0.3 % 0.0 - 2.0 % [facility] Eosinophils (Bld) [#/Vol] 0.6 10*3/uL High 0.0 - 0.5 10*3/uL [facility] Eosinophils/100 WBC (Bld) 9.4 % High 0.0 - 6.0 % [facility] Erythrocyte distribution width (RBC) [Ratio] 15.9 % High 11.5 - 15.0 % [facility] Hematocrit (Bld) [Volume fraction] 30.6 % Low 35.0 - 47.0 % [facility] Hemoglobin (Bld) [Mass/Vol] 9.9 g/dL Low 11.7 - 16.0 g/dL [facility] Immature granulocytes (Bld) [#/Vol] 0 10*3/uL NINF - 0.1 10*3/uL [facility] Immature granulocytes/100 WBC (Bld) 0.2 % 0.0 - 2.0 % [facility] Interpretation and review of laboratory results Abnormal [facility] Lymphocytes (Bld) [#/Vol] 1.2 10*3/uL 1.0 - 4.3 10*3/uL [facility] Lymphocytes/100 WBC (Bld) 19.6 % 15.0 - 45.0 % [facility] MCH (RBC) [Entitic mass] 29.6 pg 26.0 - 34.0 pg [facility] MCHC (RBC) [Mass/Vol] 32.4 % 30.5 - 36.0 % [facility] MCV (RBC) [Entitic vol] 91.3 fL 77.0 - 99.0 fL [facility] Monocytes (Bld) [#/Vol] 0.5 10*3/uL 0.0 - 0.9 10*3/uL [facility] Monocytes/100 WBC (Bld) 7.6 % 5.0 - 13.0 % [facility] Neutrophils (Bld) [#/Vol] 3.9 10*3/uL 1.8 - 7.5 10*3/uL [facility] Neutrophils/100 WBC (Bld) 62.9 % 38.0 - 82.0 % [facility] Nucleated RBC/100 WBC (Bld) [Ratio] 0 % [facility] Platelet mean volume (Bld) [Entitic vol] 10.5 fL 9.0 - 12.7 fL [facility] Platelets (Bld) [#/Vol] 157 10*3/uL 140 - 440 10*3/uL [facility] RBC (Bld) [#/Vol] 3.35 10*6/uL Low 3.80 - 5.2 0 10*6/uL [facility] WBC (Bld) [#/Vol] 6.2 10*3/uL 3.6 - 10.7 10*3/uL [facility] CBC WITH AUTO DIFFERENTIALon 08-21-2024 Basophils (Bld) [#/Vol] 0.0 10*3/uL Normal 0.0-0.2 [facility] Comment on above: Performed By: #### L [id number] ####Typesetter Apprentice: MARY SOTELO ([phone])[address] [address] [facility] Basophils/100 WBC (Bld) 0.3 % Normal 0.0-2.0 [facility] Comment on above: Performed By: #### L [id number] ####Typesetter Apprentice: MARY SOTELO ([phone])[address] [place] [address] [place] Eosinophils (Bld) [#/Vol] 0.6 10*3/uL High 0.0-0.5 [facility] Comment on above: Performed By: #### L [id number] ####Typesetter Apprentice: MARY SOTELO ([phone])[facility])[address] [place] [address] Eosinophils/100 WBC (Bld) 9.4 % High 0.0-6.0 [facility] Comment on above: Performed By: #### L [id number] ####Typesetter Apprentice: MARY SOTELO ([phone])[facility])[address] [place] [address] Erythrocyte distribution width (RBC) [Ratio] 15.9 % High 11.5-15.0 [facility] Comment on above: Performed By: #### L [id number] ####Typesetter Apprentice: MARY SOTELO ([phone])[facility])[address] [place] [address] Hematocrit (Bld) [Volume fraction] 30.6 % Low 35.0-47.0 [facility] Comment on above: Performed By: #### L [id number] ####Typesetter Apprentice: MARY SOTELO ([phone])[address] Hemoglobin (Bld) [Mass/Vol] 9.9 g/dL Low 11.7-16.0 [facility] Comment on above: Performed By: #### L [id number] ####Typesetter Apprentice: MARY SOTELO ([phone])[facility])[address] [place] [address] IMMATURE GRANS % 0.2 % Normal 0.0-2.0 [facility] Comment on above: Performed By: #### L [id number] ####Typesetter Apprentice: MARY SOTELO ([phone])[facility])[address] [place] [address] IMMATURE GRANS ABSOLUTE 0.0 10*3/uL Normal <0.1 [facility] Comment on above: Performed By: #### L [id number] ####Typesetter Apprentice: MARY SOTELO ([phone])[facility])[address] [place] [address] Lymphocytes (Bld) [#/Vol] 1.2 10*3/uL Normal 1.0-4.3 [facility] Comment on above: Performed By: #### L [id number] ####Typesetter Apprentice: MARY SOTELO ([phone])[facility])[address] [place] [address] Lymphocytes/100 WBC (Bld) 19.6 % Normal 15.0-45.0 [facility] Comment on above: Performed By: #### L [id number] ####Typesetter Apprentice: MARY SOTELO ([phone])[address] MCH (RBC) [Entitic mass] 29.6 pg Normal 26.0-34.0 [facility] Comment on above: Performed By: #### L [id number] ####Typesetter Apprentice: MARY SOTELO ([phone])[facility])[address] [place] [address] MCHC 32.4 % Normal 30.5-36.0 [facility] Comment on above: Performed By: #### L [id number] ####Typesetter Apprentice: MARY SOTELO ([phone])[address] MCV (RBC) [Entitic vol] 91.3 fL Normal 77.0-99.0 [facility] Comment on above: Performed By: #### L [id number] ####Typesetter Apprentice: MARY SOTELO ([phone])[address] Monocytes (Bld) [#/Vol] 0.5 10*3/uL Normal 0.0-0.9 [facility] Comment on above: Performed By: #### L [id number] ####Typesetter Apprentice: MRAY SOTELO ([phone])[facility] ([facility])[address] [place] [address] Monocytes/100 WBC (Bld) 7.6 % Normal 5.0-13.0 [facility] Comment on above: Performed By: #### L [id number] ####Typesetter Apprentice: MARY SOTELO ([phone])[facility] ([facility])[address] [place] [address] NEUTROPHILS ABSOLUTE 3.9 10*3/uL Normal 1.8-7.5 [facility] Comment on above: Performed By: #### L [id number] ####Typesetter Apprentice: MARY SOTELO ([phone])[facility])[address] [place] [address] Neutrophils/100 WBC (Bld) 62.9 % Normal 38.0-82.0 [facility] Comment on above: Performed By: #### L [id number] ####Typesetter Apprentice: MARY SOTELO ([phone])[facility] ([facility])[address] [place] [address] NRBC 0.0 /100 WBCs Normal 0.0-2.0 [facility] Comment on above: Performed By: #### L [id number] ####Typesetter Apprentice: MARY SOTELO ([phone])[facility] ([facility])[address] [place] [address] Platelet mean volume (Bld) [Entitic vol] 10.5 fL Normal 9.0-12.7 [facility] Comment on above: Performed By: #### L [id number] ####Typesetter Apprentice: MARY SOTELO ([phone])[facility] ([facility])[address] [place] [address] [place] Platelets (Bld) [#/Vol] 157 10*3/uL Normal 140-440 [facility] Comment on above: Performed By: #### L [id number] ####Typesetter Apprentice: MARY SOTELO ([phone])[facility] ([facility])[address] [place] [address] RBC (Bld) [#/Vol] 3.35 10*6/uL Low 3.80-5.20 [facility] Comment on above: Performed By: #### L [id number] ####Typesetter Apprentice: MARY SOTELO ([phone])[facility] ([facility])[address] [place] [address] WBC (Bld) [#/Vol] 6.2 10*3/uL Normal 3.6-10.7 [facility] Comment on above: Performed By: #### L [id number] ####Typesetter Apprentice: MARY SOTELO ([phone])[facility] ([facility])[address] [place] [address] COMPLETE URINALYSISon 2023 BACTERIA (#/HPF) IN URINE Many Abnormal Negative [facility] Comment on above: Performed By: #### L [id number] ####Typesetter Apprentice: MARY SOTELO ([phone])[facility] ([facility])[address] [place] [address] BILIRUBIN, TOTAL PRESENCE IN URINE Negative Normal Negative [facility] Comment on above: Performed By: #### L [id number] ####Typesetter Apprentice: MARY SOTELO ([phone])[facility])[address] [place] [address] Clarity (U) Extra Turbid Abnormal Clear [facility] Comment on above: Performed By: #### L [id number] ####Typesetter Apprentice: MARY SOTELO ([phone])[facility] ([facility])[address] [place] [address] Color (U) Yellow Normal Lt. Yellow [facility] Comment on above: Performed By: #### L [id number] ####Typesetter Apprentice: MARY SOTELO ([phone])[facility])[address] [place] [address] GLUCOSE (MG/DL) IN URINE Normal Normal Normal (<70) [facility] Comment on above: Performed By: #### L [id number] ####Typesetter Apprentice: MARY SOTELO ([phone])[facility] ([facility])[address] [place] [address] HEMOGLOBIN PRESENCE IN URINE 1.0 mg/dL Abnormal Negative [facility] Comment on above: Performed By: #### L [id number] ####Typesetter Apprentice: MARY SOTELO ([phone])[facility] ([facility])[address] [place] [address] HYALINE CASTS (#/LPF) IN URINE SEDIMENT BY MICROSCOPY Negative Normal Negative [facility] Comment on above: Performed By: #### L [id number] ####Typesetter Apprentice: MARY SOTELO ([phone])[facility] ([facility])[address] [place] [address] Ketones Ql (U) Negative Normal Negative [facility] Comment on above: Performed By: #### L [id number] ####Typesetter Apprentice: MARY SOTELO ([phone])[facility] ([facility])[address] [place] [address] LEUKOCYTE ESTERASE PRESENCE IN URINE BY TEST STRIP 500 Bere/uL Abnormal Negative [facility] Comment on above: Performed By: #### L [id number] ####Typesetter Apprentice: MARY SOTELO ([phone])[facility] ([facility])[address] [place] [address] NITRITE PRESENCE IN URINE Negative Normal Negative [facility] Comment on above: Performed By: #### L [id number] ####Typesetter Apprentice: MARY SOTELO ([phone])[facility] ([facility])[address] [place] [address] pH (U) 6.0 [pH] Normal 5.0-8.0 [facility] Comment on above: Performed By: #### L [id number] ####Typesetter Apprentice: MARY SOTELO ([phone])[facility])[address] [place] [address] Protein (U) [Mass/Vol] 100 mg/dL Abnormal Negative [facility] Comment on above: Performed By: #### L [id number] ####Typesetter Apprentice: MARY SOTELO ([phone])[facility] ([facility])[address] [place] [address] [place] RBC (#/HPF) IN URINE SEDIMENT >100 Abnormal 0-2 [facility] Comment on above: Performed By: #### L [id number] ####Typesetter Apprentice: MARY SOTELO ([phone])[facility] ([facility])[address] [place] [address] Specific gravity (U) [Rel density] 1.009 Normal 1.005-1.030 [facility] Comment on above: Performed By: #### L [id number] ####Typesetter Apprentice: MARY SOTELO ([phone])[facility] ([facility])[address] [place] [address] SQUAMOUS EPITHELIAL CELLS (#/HPF) IN URINE SEDIMENT Negative Normal 3-5 [facility] Comment on above: Performed By: #### L [id number] ####Typesetter Apprentice: MARY SOTELO ([phone])[facility] ([facility])[address] [place] [address] UROBILINOGEN (MG/DL) IN URINE Normal Normal Normal (0-1) [facility] Comment on above: Performed By: #### L [id number] ####Typesetter Apprentice: MARY SOTELO ([phone])[facility] ([facility])[address] [place] [address] [place] WBC (LEUKOCYTE) (#/HPF) IN URINE SEDIMENT >100 Abnormal 0-5 [facility] Comment on above: Performed By: #### L [id number] ####Typesetter Apprentice: MARY SOTELO ([phone])[facility] ([facility])[address] [place] [address] [place] WBC (LEUKOCYTE) CLUMPS (#/HPF) IN URINE SEDIMENT Many Abnormal Negative [facility] Comment on above: Performed By: #### L [id number] ####Typesetter Apprentice: MARY SOTELO ([phone])[facility] ([facility])[address] [place] [address] [place] YEAST (#/HPF) IN URINE Moderate Abnormal Negative [facility] Comment on above: Performed By: #### L [id number] ####Typesetter Apprentice: MARY SOTELO ([phone])[facility] ([facility])[address] [place] [address] [place] GLUCOSE, RANDOMon 08-21-2024 Glucose [Mass/Vol] 27 mg/dL Critically low 70-100 [facility] Comment on above: Performed By: #### L [id number] ####Typesetter Apprentice: MARY SOTELO ([phone])[facility] ([facility])[address] [place] [address] [place] Glucose (Bld) [Mass/Vol]Orde red By: Madison Donaldson on 08-21-2024 Glucose [Mass/Vol] 27 mg/dL Critically low 70 - 10 0 mg/dL [facility] Interpretation and review of laboratory results Abnormal [facility] Laboratory - Chemistry and C hemistry - challengeon 08-21-2024 Glucose [Mass/Vol] 228 mg/dL High 70 - 100 mg/dL [facility] Glucose [Mass/Vol] 123 mg/dL High 70 - 100 mg/dL [facility] Glucose [Mass/Vol] 110 mg/dL High 70 - 100 mg/dL [facility] Base excess Calc (Bld) [Moles/Vol] 3.2 mmol/L High -3.0 - 3.0 mmol/L [facility] CO2 (Bld) [Partial pressure] 51.3 mm[Hg] High - PINF [facility] CO2 [Moles/Vol] 30.8 mmol/L High 23.0 - 27.0 mmol/L [facility] HCO3 (Bld) [Moles/Vol] 29.2 mmol/L High 21.0 - 25.0 mmol/L [facility] Oxygen (Bld) [Partial pressure] 85.9 mm[Hg] [facility] pH (Bld) 7.373 [pH] 7.350 - 7.450 [facility] Glucose [Mass/Vol] 103 mg/dL High 70 - 100 mg/dL [facility] Glucose [Mass/Vol] 106 mg/dL High 70 - 100 mg/dL [facility] Glucose [Mass/Vol] 128 mg/dL High 70 - 100 mg/dL [facility] Glucose [Mass/Vol] 166 mg/dL High 70 - 100 mg/dL [facility] Glucose [Mass/Vol] mg/dL Low 70 - 100 mg/dL [facility] Base excess Calc (Bld) [Moles/Vol] 0.4 mmol/L -3.0 - 3.0 mmol/L [facility] CO2 (Bld) [Partial pressure] 59.5 mm[Hg] High - PINF [facility] CO2 [Moles/Vol] 29.5 mmol/L High 23.0 - 27.0 mmol/L [facility] HCO3 (Bld) [Moles/Vol] 27.7 mmol/L High 21.0 - 25.0 mmol/L [facility] Oxygen (Bld) [Partial pressure] 88.7 mm[Hg] [facility] pH (Bld) 7.286 [pH] Low 7.350 - 7.450 [facility] Magnesium [Mass/Vol] 2.1 mg/dL 1.6 - 2 .3 mg/dL [facility] Laboratory - Hematology and Cell countson 08-21-2024 Hemoglobin (Bld) [Mass/Vol] 10.2 g/dL Screen only [facility] Hemoglobin (Bld) [Mass/Vol] 9.8 g/dL Screen only [facility] MAGNESIUMon 08-21-2024 Magnesium [Mass/Vol] 2.1 mg/dL Normal 1.6-2.3 [facility] Comment on above: Performed By: #### L [id number], LAB15, [id number] ####Typesetter Apprentice: MARY SOTELO ([phone])[address] No Panel Informationon 08-21 Interpretation and review of laboratory results Abnormal [facility] Interpretation and review of laboratory results Abnormal [facility] Interpretation and review of laboratory results Abnormal [facility] Interpretation and review of laboratory results Abnormal [facility] Source Of Oxygen CPAP [facility] Interpretation and review of laboratory results Abnormal [facility] Interpretation and review of laboratory results Abnormal [facility] Interpretation and review of laboratory results Abnormal [facility] Interpretation and review of laboratory results Abnormal [facility] Interpretation and review of laboratory results Abnormal [facility] Interpretation and review of laboratory results Abnormal [facility] Source Of Oxygen CPAP [facility] Interpretation and review of laboratory results Normal [facility] Nursing Noteon 08-21-2024 Nursing Note Normal [facility] PHOSPHORUSon 08-21-2024 Phosphate [Mass/Vol] 3.5 mg/dL Normal 2.5-4.5 [facility] Comment on above: Performed By: #### L AB113, LAB15, [id number] ####Typesetter Apprentice: MARY SOTELO ([phone])[facility] ([facility])[address] [place] [address] [place] Phosphate [Moles/Vol]on 08-03 Phosphate [Mass/Vol] 3.5 mg/dL 2.5 - 4 .5 mg/dL [facility] Progress Noteon 08-21-2024 Progress Note Normal [facility] Progress Note Normal [facility] Progress Note Normal [facility] URINE CULTUREon 08-21-2024 Bacteria identified Cx Nom (U) Normal [facility] Comment on above: Performed By: #### L [id number] ####Typesetter Apprentice: MARY SOTELO ([phone])[facility] ([facility])[address] [place] [address] [place] Urinalysis complete panel (U )on 08-21-2024 Bacteria LM.HPF (Urine sed) [#/Area] Many Abnormal Negative /HPF [facility] Bilirubin Ql (U) Negative Negative mg/dL [facility] Clarity (U) Extra Turbid Abnormal Clear [facility] h Color (U) Yellow Lt. Yellow [facility] Epithelial cells.squamous LM.HPF (Urine sed) [#/Area] Negative [facility] Glucose Ql (U) Normal Normal (<70) mg/dL [facility] Hemoglobin Ql (U) 1.0 mg/dL Abnormal Negative [facility] Hyaline casts Auto (Urine sed) [#/Area] Negative Negative /LPF [facility] Interpretation and review of laboratory results Abnormal [facility] Ketones (U) [Mass/Vol] Negative Negat pawan mg/dL [facility] Leukocyte clumps LM.HPF (Urine sed) [#/Area] Many Abnormal Negative /HPF [facility] Leukocyte esterase Test strip Ql (U) 500 Abnormal Negative Bere/uL [facility] Nitrite Ql (U) Negative Negative [facility] th pH (U) 6.0 [pH] 5.0 - 8.0 pH [facility] Protein (U) [Mass/Vol] 100 mg/dL Abnormal Negative [facility] RBC LM.HPF (Urine sed) [#/Area] /[HPF] Abnormal [facility] Specific gravity (U) [Rel density] 1.009 1.005 - 1.030 [facility] Urobilinogen (U) [Mass/Vol] Normal Normal (0-1) mg/dL [facility] WBC LM.HPF (Urine sed) [#/Area] /[HPF] Abnormal [facility] Yeast.budding LM.HPF (Urine sed) [#/Area] Moderate Abnormal Negative /HPF [facility] BASIC METABOLIC PANELon 10-1 Anion gap [Moles/Vol] 8 mmol/L Normal 3-13 [facility] Comment on above: Performed By: #### L AB15, [id number], [id number] ####Typesetter Apprentice: MARY SOTELO ([phone])[facility] ([facility])[address] [place] [address] Calcium [Mass/Vol] 7.8 mg/dL Low 8.4-10.4 [facility] Comment on above: Performed By: #### L AB15, [id number], [id number] ####Typesetter Apprentice: MARY SOTELO ([phone])[facility] ([facility])[address] [place] [address] [place] Chloride [Moles/Vol] 97 mmol/L Low 98-107 [facility] Comment on above: Performed By: #### L AB15, [id number], [id number] ####Typesetter Apprentice: MARY SOTELO ([phone])[facility] ([facility] [facility])[address] [place] [address] CO2 [Moles/Vol] 24 mmol/L Normal 22-30 [facility] Comment on above: Performed By: #### L AB15, [id number], [id number] ####Typesetter Apprentice: MARY SOTELO ([phone])[facility] [place] [address] Creatinine [Mass/Vol] 3.58 mg/dL High 0.52-1.04 [facility] Comment on above: Performed By: #### L AB15, [id number], [id number] ####Typesetter Apprentice: MARY SOTELO ([phone])[facility] ([facility])[address] [place] [address] [place] GLOMERULAR FILTRATION RATE ML/MIN/1.73 SQ M.PREDICTED 13.6 mL/min/1.73m*2 Low >60.0 [facility] Comment on above: Result Comment: Calc ulation based on the Chronic Kidney Disease Epidemiology Collaboration (CKD-EPI) equation refit without adjustment for race Performed By: #### L AB15, [id number], [id number] ####Typesetter Apprentice: MARY SOTELO ([phone])[facility] ([facility])[address] [place] [address] Glucose [Mass/Vol] 150 mg/dL High 70-100 [facility] Comment on above: Performed By: #### L AB15, [id number], [id number] ####Typesetter Apprentice: MARY SOTELO ([phone])[facility] ([facility])[address] [place] [address] Potassium [Moles/Vol] 4.0 mmol/L Normal 3.5-5.1 [facility] Comment on above: Performed By: #### L AB15, [id number], [id number] ####Typesetter Apprentice: MARY SOTELO ([phone])[facility] ([facility])[address] [place] [address] [place] Sodium [Moles/Vol] 129 mmol/L Low 135-145 [facility] Comment on above: Performed By: #### L AB15, [id number], [id number] ####Typesetter Apprentice: MARY SOTELO ([phone])[facility])[address] [place] [address] [place] Urea nitrogen [Mass/Vol] 41 mg/dL High 7-17 [facility] Comment on above: Performed By: #### L AB15, [id number], [id number] ####Typesetter Apprentice: MARY SOTELO ([phone])[facility] ([facility])[address] [place] [address] BLOOD GAS ARTERIALon 10-18-2 024 Base excess Calc (Bld) [Moles/Vol] -0.7000 mmol/L Normal -3.0-3.0 [facility] Comment on above: Performed By: #### L [id number] ####Typesetter Apprentice: MARY SOTELO ([phone])[facility] ([facility])[address] [place] [address] CO2 [Moles/Vol] 28.6 mmol/L High 23.0-27.0 [facility] Comment on above: Performed By: #### L AB76 ####Typesetter Apprentice: MARY SOTELO ([phone])[facility])[address] [place] [address] HCO3 (Bld) [Moles/Vol] 26.8 mmol/L High 21.0-25.0 [facility] Comment on above: Performed By: #### L [id number] ####Typesetter Apprentice: MARY SOTELO ([phone])[facility])[address] [place] [address] Hemoglobin (Bld) [Mass/Vol] 10.3 g/dL Normal Screen only [facility] Comment on above: Performed By: #### L [id number] ####Typesetter Apprentice: MARY SOTELO ([phone])[facility] ([facility])[address] [place] [address] OXYGEN SATURATION (%) IN ARTERIAL BLOOD 98.1 % Normal 95.0-100.0 [facility] Comment on above: Performed By: #### L [id number] ####Typesetter Apprentice: MARY SOTELO ([phone])[facility])[address] [place] [address] PCO2 ARTERIAL 59.2 mm Hg High >35.0-<45.0 [facility] Comment on above: Performed By: #### L [id number] ####Typesetter Apprentice: MARY SOTELO ([phone])[facility] ([facility])[address] [place] [address] PH ARTERIAL 7.274 Low 7.350-7.450 [facility] Comment on above: Performed By: #### L [id number] ####Typesetter Apprentice: MARY SOTELO ([phone])[facility] ([facility])[address] [place] [address] PO2 ARTERIAL 113.3 mm Hg High 80.0-100.0 [facility] Comment on above: Performed By: #### L [id number] ####Typesetter Apprentice: MARY SOTELO ([phone])[facility])[address] [place] [address] SOURCE OF OXYGEN 40% Oxygen Normal [facility] Comment on above: Performed By: #### L [id number] ####Typesetter Apprentice: MARY SOTELO ([phone])[facility] ([facility])[address] [place] [address] Base excess Calc (Bld) [Moles/Vol] 0.2 mmol/L Normal -3.0-3.0 [facility] Comment on above: Performed By: #### L [id number] ####Typesetter Apprentice: MARY SOTELO ([phone])[facility])[address] [place] [address] CO2 [Moles/Vol] 30.7 mmol/L High 23.0-27.0 [facility] Comment on above: Performed By: #### L [id number] ####Typesetter Apprentice: MARY SOTELO ([phone])[facility])[address] [place] [address] HCO3 (Bld) [Moles/Vol] 28.6 mmol/L High 21.0-25.0 [facility] Comment on above: Performed By: #### L [id number] ####Typesetter Apprentice: MARY SOTELO ([phone])[facility])[address] [place] [address] Hemoglobin (Bld) [Mass/Vol] 10.5 g/dL Normal Screen only [facility] Comment on above: Performed By: #### L [id number] ####Typesetter Apprentice: MARY SOTELO ([phone])[facility])[address] [place] [address] OXYGEN SATURATION (%) IN ARTERIAL BLOOD 96.9 % Normal 95.0-100.0 [facility] Comment on above: Performed By: #### L [id number] ####Typesetter Apprentice: MARY SOTELO ([phone])[facility] ([facility])[address] [place] [address] PCO2 ARTERIAL 67.9 mm Hg High >35.0-<45.0 [facility] Comment on above: Performed By: #### L [id number] ####Typesetter Apprentice: MARY SOTELO ([phone])[facility] ([facility])[address] [place] [address] PH ARTERIAL 7.242 Low 7.350-7.450 [facility] Comment on above: Performed By: #### L [id number] ####Typesetter Apprentice: MARY SOTELO ([phone])[facility] ([facility])[address] [place] [address] PO2 ARTERIAL 101.2 mm Hg High 80.0-100.0 [facility] Comment on above: Performed By: #### L [id number] ####Typesetter Apprentice: MARY SOTELO ([phone])[facility] ([facility])[address] [place] [address] SOURCE OF OXYGEN 40% Oxygen Normal [facility] Comment on above: Performed By: #### L [id number] ####Typesetter Apprentice: MARY SOTELO ([phone])[facility] ([facility])[address] [place] [address] Base excess Calc (Bld) [Moles/Vol] 0.5 mmol/L Normal -3.0-3.0 [facility] Comment on above: Performed By: #### L [id number] ####Typesetter Apprentice: MARY SOTELO ([phone])[facility] ([facility])[address] [place] [address] CO2 [Moles/Vol] 31.0 mmol/L High 23.0-27.0 [facility] Comment on above: Performed By: #### L [id number] ####Typesetter Apprentice: MARY SOTELO ([phone])[facility] ([facility])[address] [place] [address] HCO3 (Bld) [Moles/Vol] 28.9 mmol/L High 21.0-25.0 [facility] Comment on above: Performed By: #### L [id number] ####Typesetter Apprentice: MARY SOTELO ([phone])[facility] ([facility])[address] [place] [address] Hemoglobin (Bld) [Mass/Vol] 10.4 g/dL Normal Screen only [facility] Comment on above: Performed By: #### L [id number] ####Typesetter Apprentice: MARY SOTELO ([phone])[facility] ([facility])[address] [place] [address] OXYGEN SATURATION (%) IN ARTERIAL BLOOD 68.2 % Low 95.0-100.0 [facility] Comment on above: Performed By: #### L [id number] ####Typesetter Apprentice: MARY SOTELO ([phone])[facility] ([facility])[address] [place] [address] PCO2 ARTERIAL 68.4 mm Hg High >35.0-<45.0 [facility] Comment on above: Performed By: #### L [id number] ####Typesetter Apprentice: MARY SOTELO ([phone])[facility] [place] [address] PH ARTERIAL 7.244 Low 7.350-7.450 [facility] Comment on above: Performed By: #### L [id number] ####Typesetter Apprentice: MARY SOTELO ([phone])[facility] [place] [address] PO2 ARTERIAL 36.2 mm Hg Critically low 80.0-100.0 [facility] Comment on above: Performed By: #### L [id number] ####Typesetter Apprentice: MARY SOTELO ([phone])[facility])[address] [place] [address] SOURCE OF OXYGEN Bi-PAP Normal [facility] Comment on above: Result Comment: 10/07 , 3 L Performed By: #### L [id number] ####Typesetter Apprentice: MARY SOTELO ([phone])[facility] ([facility])[address] [place] [address] Base excess Calc (Bld) [Moles/Vol] -1.0000 mmol/L Normal -3.0-3.0 [facility] Comment on above: Performed By: #### L [id number] ####Typesetter Apprentice: MARY SOTELO ([phone])[facility] ([facility])[address] [place] [address] CO2 [Moles/Vol] 30.1 mmol/L High 23.0-27.0 [facility] Comment on above: Performed By: #### L [id number] ####Typesetter Apprentice: MARY SOTELO ([phone])[facility] ([facility])[address] [place] [address] HCO3 (Bld) [Moles/Vol] 27.9 mmol/L High 21.0-25.0 [facility] Comment on above: Performed By: #### L [id number] ####Typesetter Apprentice: MARY SOTELO ([phone])[facility])[address] [place] [address] Hemoglobin (Bld) [Mass/Vol] 10.1 g/dL Normal Screen only [facility] Comment on above: Performed By: #### L [id number] ####Typesetter Apprentice: MARY SOTELO ([phone])[facility])[address] [place] [address] OXYGEN SATURATION (%) IN ARTERIAL BLOOD 92.1 % Low 95.0-100.0 [facility] Comment on above: Performed By: #### L [id number] ####Typesetter Apprentice: MARY SOTELO ([phone])[facility] ([facility])[address] [place] [address] PCO2 ARTERIAL 71.5 mm Hg High >35.0-<45.0 [facility] Comment on above: Performed By: #### L [id number] ####Typesetter Apprentice: MARY SOTELO ([phone])[facility] [place] [address] PH ARTERIAL 7.209 Low 7.350-7.450 [facility] Comment on above: Performed By: #### L [id number] ####Typesetter Apprentice: MARY SOTELO ([phone])[facility] [place] [address] PO2 ARTERIAL 63.4 mm Hg Low 80.0-100.0 [facility] Comment on above: Performed By: #### L [id number] ####Typesetter Apprentice: MARY SOTELO ([phone])[facility] ([facility])[address] [place] [address] SOURCE OF OXYGEN Nasal cannula Normal [facility] Comment on above: Result Comment: 3L Performed By: #### L [id number] ####Typesetter Apprentice: MARY SOTELO ([phone])[facility] [place] [address] Basic metabolic 1998 panelon 08-20-2024 Anion gap [Moles/Vol] 8 mmol/L 3 - 13 mmol/L [facility] Calcium [Mass/Vol] 7.8 mg/dL Low 8.4 - 10. 4 mg/dL [facility] Chloride [Moles/Vol] 97 mmol/L Low 98 - 10 7 mmol/L [facility] CO2 [Moles/Vol] 24 mmol/L 22 - 30 mmol/L [facility] Creatinine [Mass/Vol] 3.58 mg/dL High 0.52 - 1.04 mg/dL [facility] GFR/1.73 sq M.predicted (S/P/Bld) [Vol rate/Area] 13.6 mL/min Low - PINF [facility] Glucose [Mass/Vol] 150 mg/dL High 70 - 100 mg/dL [facility] Interpretation and review of laboratory results Abnormal [facility] Potassium [Moles/Vol] 4 mmol/L 3.5 - 5.1 mmol/L [facility] Sodium [Moles/Vol] 129 mmol/L Low 135 - 145 mmol/L [facility] Urea nitrogen [Mass/Vol] 41 mg/dL High 7 - 17 mg/dL [facility] CALCIUM, IONIZEDon CALCIUM IONIZED 4.30 mg/dL Normal 4.30-5.20 [facility] Comment on above: Performed By: #### L [id number] ####Typesetter Apprentice: MARY SOTELO ([phone])[facility] ([facility])[address] [place] [address] PH, IONIZED CALCIUM 7.25 Low 7.31-7.46 [facility] Comment on above: Performed By: #### L [id number] ####Typesetter Apprentice: MARY SOTELO ([phone])[facility] ([facility])[address] [place] [address] CARECOORDon 08-20-2024 CARECOORD Normal [facility] CBC W Auto Differential pane l (Bld)on 08-20-2024 Basophils (Bld) [#/Vol] 0 10*3/uL 0.0 - 0.2 10*3/uL [facility] Basophils/100 WBC (Bld) 0 % 0.0 - 2.0 % [facility] Eosinophils (Bld) [#/Vol] 0.1 10*3/uL 0.0 - 0.5 10*3/uL [facility] Eosinophils/100 WBC (Bld) 1.4 % 0.0 - 6.0 % [facility] Erythrocyte distribution width (RBC) [Ratio] 15.5 % High 11.5 - 15.0 % [facility] Hematocrit (Bld) [Volume fraction] 30.5 % Low 35.0 - 47.0 % [facility] Hemoglobin (Bld) [Mass/Vol] 9.9 g/dL Low 11.7 - 16.0 g/dL [facility] Immature granulocytes (Bld) [#/Vol] 0 10*3/uL NINF - 0.1 10*3/uL [facility] Immature granulocytes/100 WBC (Bld) 0.5 % 0.0 - 2.0 % [facility] Interpretation and review of laboratory results Abnormal [facility] Lymphocytes (Bld) [#/Vol] 0.6 10*3/uL Low 1.0 - 4.3 10*3/uL [facility] Lymphocytes/100 WBC (Bld) 10.8 % Low 15.0 - 45.0 % [facility] MCH (RBC) [Entitic mass] 29.5 pg 26.0 - 34.0 pg [facility] MCHC (RBC) [Mass/Vol] 32.5 % 30.5 - 36.0 % [facility] MCV (RBC) [Entitic vol] 90.8 fL 77.0 - 99.0 fL [facility] Monocytes (Bld) [#/Vol] 0.3 10*3/uL 0.0 - 0.9 10*3/uL [facility] Monocytes/100 WBC (Bld) 4.5 % Low 5.0 - 13.0 % [facility] Neutrophils (Bld) [#/Vol] 4.8 10*3/uL 1.8 - 7.5 10*3/uL [facility] Neutrophils/100 WBC (Bld) 82.8 % High 38.0 - 82.0 % [facility] Nucleated RBC/100 WBC (Bld) [Ratio] 0 % [facility] Platelet mean volume (Bld) [Entitic vol] 10.3 fL 9.0 - 12.7 fL [facility] Platelets (Bld) [#/Vol] 145 10*3/uL 140 - 440 10*3/uL [facility] RBC (Bld) [#/Vol] 3.36 10*6/uL Low 3.80 - 5.2 0 10*6/uL [facility] WBC (Bld) [#/Vol] 5.8 10*3/uL 3.6 - 10.7 10*3/uL [facility] CBC WITH AUTO DIFFERENTIALon 08-20-2024 Basophils (Bld) [#/Vol] 0.0 10*3/uL Normal 0.0-0.2 [facility] Comment on above: Performed By: #### L [id number] ####Typesetter Apprentice: MARY SOTELO ([phone])[facility] ([address] Basophils/100 WBC (Bld) 0.0 % Normal 0.0-2.0 [facility] Comment on above: Performed By: #### L [id number] ####Typesetter Apprentice: MARY SOTELO ([phone])[facility])[address] [place] [address] Eosinophils (Bld) [#/Vol] 0.1 10*3/uL Normal 0.0-0.5 [facility] Comment on above: Performed By: #### L [id number] ####Typesetter Apprentice: MARY SOTELO ([phone])[facility])[address] [place] [address] Eosinophils/100 WBC (Bld) 1.4 % Normal 0.0-6.0 [facility] Comment on above: Performed By: #### L [id number] ####Typesetter Apprentice: MARY SOTELO ([phone])[facility])[address] [place] [address] Erythrocyte distribution width (RBC) [Ratio] 15.5 % High 11.5-15.0 [facility] Comment on above: Performed By: #### L [id number] ####Typesetter Apprentice: MARY SOTELO ([phone])[facility])[address] [place] [address] Hematocrit (Bld) [Volume fraction] 30.5 % Low 35.0-47.0 [facility] Comment on above: Performed By: #### L [id number] ####Typesetter Apprentice: MARY SOTELO ([phone])[facility])[address] [place] [address] Hemoglobin (Bld) [Mass/Vol] 9.9 g/dL Low 11.7-16.0 [facility] Comment on above: Performed By: #### L [id number] ####Typesetter Apprentice: MARY SOTELO ([phone])[facility])[address] [place] [address] IMMATURE GRANS % 0.5 % Normal 0.0-2.0 [facility] Comment on above: Performed By: #### L [id number] ####Typesetter Apprentice: MARY SOTELO ([phone])[facility])[address] [place] [address] IMMATURE GRANS ABSOLUTE 0.0 10*3/uL Normal <0.1 [facility] Comment on above: Performed By: #### L [id number] ####Typesetter Apprentice: MARY SOTELO ([phone])[facility])[address] [place] [address] Lymphocytes (Bld) [#/Vol] 0.6 10*3/uL Low 1.0-4.3 [facility] Comment on above: Performed By: #### L [id number] ####Typesetter Apprentice: MARY SOTELO ([phone])[address] Lymphocytes/100 WBC (Bld) 10.8 % Low 15.0-45.0 [facility] Comment on above: Performed By: #### L [id number] ####Typesetter Apprentice: MARY SOTELO ([phone])[facility])[address] [place] [address] MCH (RBC) [Entitic mass] 29.5 pg Normal 26.0-34.0 [facility] Comment on above: Performed By: #### L [id number] ####Typesetter Apprentice: MARY SOTELO ([phone])[address] MCHC 32.5 % Normal 30.5-36.0 [facility] Comment on above: Performed By: #### L [id number] ####Typesetter Apprentice: MARY SOTELO ([phone])[address] MCV (RBC) [Entitic vol] 90.8 fL Normal 77.0-99.0 [facility] Comment on above: Performed By: #### L [id number] ####Typesetter Apprentice: MARY SOTELO ([phone])[facility])[address] [place] [address] Monocytes (Bld) [#/Vol] 0.3 10*3/uL Normal 0.0-0.9 [facility] Comment on above: Performed By: #### L [id number] ####Typesetter Apprentice: MARY SOTELO ([phone])[facility] ([facility])[address] [place] [address] Monocytes/100 WBC (Bld) 4.5 % Low 5.0-13.0 [facility] Comment on above: Performed By: #### L [id number] ####Typesetter Apprentice: MARY SOTELO ([phone])[facility])[address] [place] [address] NEUTROPHILS ABSOLUTE 4.8 10*3/uL Normal 1.8-7.5 [facility] Comment on above: Performed By: #### L [id number] ####Typesetter Apprentice: MARY SOTELO ([phone])[facility] ([facility])[address] [place] [address] Neutrophils/100 WBC (Bld) 82.8 % High 38.0-82.0 [facility] Comment on above: Performed By: #### L [id number] ####Typesetter Apprentice: MARY SOTELO ([phone])[facility] ([facility])[address] [place] [address] NRBC 0.0 /100 WBCs Normal 0.0-2.0 [facility] Comment on above: Performed By: #### L [id number] ####Typesetter Apprentice: MARY SOTELO ([phone])[facility] ([facility])[address] [place] [address] Platelet mean volume (Bld) [Entitic vol] 10.3 fL Normal 9.0-12.7 [facility] Comment on above: Performed By: #### L [id number] ####Typesetter Apprentice: MARY SOTELO ([phone])[facility] ([facility])[address] [place] [address] [place] Platelets (Bld) [#/Vol] 145 10*3/uL Normal 140-440 [facility] Comment on above: Performed By: #### L [id number] ####Typesetter Apprentice: MARY SOTELO ([phone])[facility])[address] [place] [address] RBC (Bld) [#/Vol] 3.36 10*6/uL Low 3.80-5.20 [facility] Comment on above: Performed By: #### L [id number] ####Typesetter Apprentice: MARY SOTELO ([phone])[facility] ([facility])[address] [place] [address] WBC (Bld) [#/Vol] 5.8 10*3/uL Normal 3.6-10.7 [facility] Comment on above: Performed By: #### L [id number] ####Typesetter Apprentice: MARY SOTELO ([phone])[address] Calcium.ionized [Moles/Vol]O rdered By: Fredy Friend on 08-20-2024 Calcium.ionized (Bld) [Moles/Vol] 4.3 mg/dL 4.30 - 5.20 mg/dL [facility] Interpretation and review of laboratory results Abnormal [facility] PH, IONIZED CALCIUM 7.25 Low 7.31 - 7.46 [facility] Consulton 08-20-2024 Consult Normal [facility] - Chemistry and C hemistry - challengeon 08-20-2024 Base excess Calc (Bld) [Moles/Vol] -0.7000 mmol/L -3.0 - 3.0 mmol/L [facility] CO2 (Bld) [Partial pressure] 59.2 mm[Hg] High - PINF [facility] CO2 [Moles/Vol] 28.6 mmol/L High 23.0 - 27.0 mmol/L [facility] HCO3 (Bld) [Moles/Vol] 26.8 mmol/L High 21.0 - 25.0 mmol/L [facility] Oxygen (Bld) [Partial pressure] 113.3 mm[Hg] High [facility] pH (Bld) 7.274 [pH] Low 7.350 - 7.450 [facility] Glucose [Mass/Vol] 124 mg/dL High 70 - 100 mg/dL [facility] Base excess Calc (Bld) [Moles/Vol] 0.2 mmol/L -3.0 - 3.0 mmol/L [facility] CO2 (Bld) [Partial pressure] 67.9 mm[Hg] High - PINF [facility] CO2 [Moles/Vol] 30.7 mmol/L High 23.0 - 27.0 mmol/L [facility] HCO3 (Bld) [Moles/Vol] 28.6 mmol/L High 21.0 - 25.0 mmol/L [facility] Oxygen (Bld) [Partial pressure] 101.2 mm[Hg] High [facility] pH (Bld) 7.242 [pH] Low 7.350 - 7.450 [facility] Base excess Calc (Bld) [Moles/Vol] 0.5 mmol/L -3.0 - 3.0 mmol/L [facility] CO2 (Bld) [Partial pressure] 68.4 mm[Hg] High - PINF [facility] CO2 [Moles/Vol] 31 mmol/L High 23.0 - 27.0 mmol/L [facility] HCO3 (Bld) [Moles/Vol] 28.9 mmol/L High 21.0 - 25.0 mmol/L [facility] Oxygen (Bld) [Partial pressure] 36.2 mm[Hg] Critically low [facility] pH (Bld) 7.244 [pH] Low 7.350 - 7.450 [facility] Glucose [Mass/Vol] 185 mg/dL High 70 - 100 mg/dL [facility] Glucose [Mass/Vol] 158 mg/dL High 70 - 100 mg/dL [facility] Magnesium [Mass/Vol] 2 mg/dL 1.6 - 2 .3 mg/dL [facility] Laboratory - Chemistry and C hemistry - challengeOrdered By: Audrey Blanchard on 08-20-2024 Base excess Calc (Bld) [Moles/Vol] -1 mmol/L -3.0 - 3.0 mmol/L [facility] CO2 (Bld) [Partial pressure] 71.5 mm[Hg] High - PINF [facility] CO2 [Moles/Vol] 30.1 mmol/L High 23.0 - 27.0 mmol/L [facility] HCO3 (Bld) [Moles/Vol] 27.9 mmol/L High 21.0 - 25.0 mmol/L [facility] Oxygen (Bld) [Partial pressure] 63.4 mm[Hg] Low [facility] pH (Bld) 7.209 [pH] Low 7.350 - 7.450 [facility] Laboratory - Hematology and Cell countson 08-20-2024 Hemoglobin (Bld) [Mass/Vol] 10.3 g/dL Screen only [facility] Hemoglobin (Bld) [Mass/Vol] 10.5 g/dL Screen only [facility] Hemoglobin (Bld) [Mass/Vol] 10.4 g/dL Screen only [facility] Laboratory - Hematology and Cell countsOrdered By: Audrey Blanchard on 08-20-2024 Hemoglobin (Bld) [Mass/Vol] 10.1 g/dL Screen only [facility] MAGNESIUMon 08-20-2024 Magnesium [Mass/Vol] 2.0 mg/dL Normal 1.6-2.3 [facility] Comment on above: Performed By: #### L AB15, [id number], [id number] ####Typesetter Apprentice: MARY SOTELO ([phone])[address] No Panel Informationon 08-20 Interpretation and review of laboratory results Abnormal [facility] Source Of Oxygen 40% Oxygen [facility] Interpretation and review of laboratory results Abnormal [facility] Interpretation and review of laboratory results Abnormal [facility] Source Of Oxygen 40% Oxygen [facility] alth [facility] Interpretation and review of laboratory results Abnormal [facility] Source Of Oxygen Bi-PAP [facility] alth [facility] Interpretation and review of laboratory results Abnormal [facility] Interpretation and review of laboratory results Abnormal [facility] Interpretation and review of laboratory results Normal [facility] No Panel InformationOrdered By: Audrey Blanchard on 08-20-2024 Interpretation and review of laboratory results Abnormal [facility] Source Of Oxygen Nasal cannula [facility] PHOSPHORUSon 08-20-2024 Phosphate [Mass/Vol] 4.1 mg/dL Normal 2.5-4.5 [facility] Comment on above: Performed By: #### L AB15, [id number], [id number] ####Typesetter Apprentice: MARY SOTELO ([phone])[facility] ([facility])[address] [place] [address] [place] Phosphate [Moles/Vol]on 08-03 Phosphate [Mass/Vol] 4.1 mg/dL 2.5 - 4 .5 mg/dL [facility] Progress Noteon 08-20-2024 Progress Note OCCUPATIONAL THERAPY Attempted OT services, pt on hold due to pt unable to stay aroused/limited responsiveness. Will reattempt when pt is alert/able to participate. Normal [facility] Progress Note Normal [facility] Progress Note Normal [facility] Progress Note Normal [facility] Progress Note Normal [facility] BASIC METABOLIC PANELon 08-03 Anion gap [Moles/Vol] 3 mmol/L Normal 3-13 [facility] Comment on above: Performed By: #### L AB113, LAB15, [id number], [id number] ####Typesetter Apprentice: MARY SOTELO ([phone])[facility] ([facility])[address] [place] [address] [place] Calcium [Mass/Vol] 7.4 mg/dL Low 8.4-10.4 [facility] Comment on above: Performed By: #### L AB113, LAB15, [id number], [id number] ####Typesetter Apprentice: MARY SOTELO ([phone])[facility] ([facility])[address] [place] [address] [place] Chloride [Moles/Vol] 95 mmol/L Low 98-107 [facility] Comment on above: Performed By: #### L AB113, LAB15, [id number], [id number] ####Typesetter Apprentice: MARY SOTELO ([phone])[facility] ([facility])[address] [place] [address] [place] CO2 [Moles/Vol] 28 mmol/L Normal 22-30 [facility] Comment on above: Performed By: #### L AB113, LAB15, [id number], [id number] ####Typesetter Apprentice: MARY SOTELO ([phone])[facility] ([facility])[address] [place] [address] Creatinine [Mass/Vol] 2.98 mg/dL High 0.52-1.04 [facility] Comment on above: Performed By: #### L AB113, LAB15, [id number], [id number] ####Typesetter Apprentice: MARY SOTELO ([phone])[facility] ([facility])[address] [place] [address] GLOMERULAR FILTRATION RATE ML/MIN/1.73 SQ M.PREDICTED 17.0 mL/min/1.73m*2 Low >60.0 [facility] Comment on above: Result Comment: Calc ulation based on the Chronic Kidney Disease Epidemiology Collaboration (CKD-EPI) equation refit without adjustment for race Performed By: #### L AB113, LAB15, [id number], [id number] ####Typesetter Apprentice: MARY SOTELO ([phone])[facility] ([facility])[address] [place] [address] [place] Glucose [Mass/Vol] 626 mg/dL Critically high 70-100 S [facility] Comment on above: Performed By: #### L AB113, LAB15, [id number], [id number] ####Typesetter Apprentice: MARY SOTELO ([phone])[facility] ([facility])[address] [place] [address] [place] Potassium [Moles/Vol] 4.4 mmol/L Normal 3.5-5.1 [facility] Comment on above: Performed By: #### L AB113, LAB15, [id number], [id number] ####Typesetter Apprentice: MARY SOTELO ([phone])[facility])[address] [place] [address] [place] Sodium [Moles/Vol] 126 mmol/L Low 135-145 [facility] Comment on above: Performed By: #### L AB113, LAB15, [id number], [id number] ####Typesetter Apprentice: MARY SOTELO ([phone])[facility] ([facility])[address] [place] [address] Urea nitrogen [Mass/Vol] 28 mg/dL High - [facility] Comment on above: Performed By: #### L AB113, LAB15, [id number], [id number] ####Typesetter Apprentice: MARY SOTELO ([phone])[facility] ([facility])[address] [place] [address] BETA HYDROXYBUTYRATEon 08-19 BETA HYDROXYBUTYRATE 7.01 mg/dL High 0.20-2.81 [facility] Comment on above: Performed By: #### L AB113, LAB15, [id number], [id number] ####Typesetter Apprentice: MARY SOTELO ([phone])[facility] [place] [address] Bacteria identified Cx Nom ( Bld)on 08-19-2024 Interpretation and review of laboratory results Normal [facility] Basic metabolic 1998 panelon 08-19-2024 Anion gap [Moles/Vol] 3 mmol/L 3 - 13 mmol/L [facility] Calcium [Mass/Vol] 7.4 mg/dL Low 8.4 - 10. 4 mg/dL [facility] Chloride [Moles/Vol] 95 mmol/L Low 98 - 10 7 mmol/L [facility] CO2 [Moles/Vol] 28 mmol/L 22 - 30 mmol/L [facility] Creatinine [Mass/Vol] 2.98 mg/dL High 0.52 - 1.04 mg/dL [facility] GFR/1.73 sq M.predicted (S/P/Bld) [Vol rate/Area] 17 mL/min Low - PINF [facility] Glucose [Mass/Vol] 626 mg/dL Critically high 70 - 1 00 mg/dL [facility] Interpretation and review of laboratory results Abnormal [facility] Potassium [Moles/Vol] 4.4 mmol/L 3.5 - 5.1 mmol/L [facility] Sodium [Moles/Vol] 126 mmol/L Low 135 - 145 mmol/L [facility] Urea nitrogen [Mass/Vol] 28 mg/dL High 7 - mg/dL [facility] CALCIUM, IONIZEDon CALCIUM IONIZED 4.20 mg/dL Low 4.30-5.20 [facility] Comment on above: Performed By: #### L AB54 ####Typesetter Apprentice: MARY SOTELO ([phone])[facility] ([facility])[address] [place] [address] PH, IONIZED CALCIUM 7.21 Low 7.31-7.46 [facility] Comment on above: Performed By: #### L AB54 ####Typesetter Apprentice: MARY SOTELO ([phone])[facility] ([facility])[address] [place] [address] CBC W Auto Differential pane l (Bld)on 08-19-2024 Basophils (Bld) [#/Vol] 0 10*3/uL 0.0 - 0.2 10*3/uL [employer] Basophils/100 WBC (Bld) 0.3 % 0.0 - 2.0 % [employer] Eosinophils (Bld) [#/Vol] 0.1 10*3/uL 0.0 - 0.5 10*3/uL [employer] Eosinophils/100 WBC (Bld) 2.5 % 0.0 - 6.0 % [employer] Erythrocyte distribution width (RBC) [Ratio] 15.6 % High 11.5 - 15.0 % [employer] Hematocrit (Bld) [Volume fraction] 29.5 % Low 35.0 - 47.0 % [facility] Hemoglobin (Bld) [Mass/Vol] 9.3 g/dL Low 11.7 - 16.0 g/dL [facility] Immature granulocytes (Bld) [#/Vol] 0 10*3/uL NINF - 0.1 10*3/uL [employer] Immature granulocytes/100 WBC (Bld) 0.3 % 0.0 - 2.0 % [facility] [employer] Interpretation and review of laboratory results Abnormal [employer] Lymphocytes (Bld) [#/Vol] 0.6 10*3/uL Low 1.0 - 4.3 10*3/uL [facility] [employer] Lymphocytes/100 WBC (Bld) 14.8 % Low 15.0 - 45.0 % [employer] MCH (RBC) [Entitic mass] 29.3 pg 26.0 - 34.0 pg [facility] MCHC (RBC) [Mass/Vol] 31.5 % 30.5 - 36.0 % [facility] MCV (RBC) [Entitic vol] 93.1 fL 77.0 - 99.0 fL [facility] Monocytes (Bld) [#/Vol] 0.3 10*3/uL 0.0 - 0.9 10*3/uL [facility] Monocytes/100 WBC (Bld) 6.8 % 5.0 - 13.0 % [facility] Neutrophils (Bld) [#/Vol] 3 10*3/uL 1.8 - 7.5 10*3/uL [facility] Neutrophils/100 WBC (Bld) 75.3 % 38.0 - 82.0 % [facility] Nucleated RBC/100 WBC (Bld) [Ratio] 0 % [facility] Platelet mean volume (Bld) [Entitic vol] 10.6 fL 9.0 - 12.7 fL [facility] Platelets (Bld) [#/Vol] 114 10*3/uL Low 140 - 440 10*3/uL [facility] RBC (Bld) [#/Vol] 3.17 10*6/uL Low 3.80 - 5.2 0 10*6/uL [facility] WBC (Bld) [#/Vol] 4 10*3/uL 3.6 - 10.7 10*3/uL [facility] CBC WITH AUTO DIFFERENTIALon 08-19-2024 Basophils (Bld) [#/Vol] 0.0 10*3/uL Normal 0.0-0.2 [facility] Comment on above: Performed By: #### L [id number] ####Typesetter Apprentice: MARY SOTELO ([phone])[address] Basophils/100 WBC (Bld) 0.3 % Normal 0.0-2.0 [facility] [employer] [facility] Comment on above: Performed By: #### L [id number] ####Typesetter Apprentice: MARY SOTELO ([phone])[facility])[address] [place] [address] Eosinophils (Bld) [#/Vol] 0.1 10*3/uL Normal 0.0-0.5 [facility] Comment on above: Performed By: #### L [id number] ####Typesetter Apprentice: MARY SOTELO ([phone])[address] Eosinophils/100 WBC (Bld) 2.5 % Normal 0.0-6.0 [facility] Comment on above: Performed By: #### L [id number] ####Typesetter Apprentice: MARY SOTELO ([phone])[facility])[address] [place] [address] Erythrocyte distribution width (RBC) [Ratio] 15.6 % High 11.5-15.0 [facility] Comment on above: Performed By: #### L [id number] ####Typesetter Apprentice: MARY SOTELO ([phone])[address] Hematocrit (Bld) [Volume fraction] 29.5 % Low 35.0-47.0 [facility] Comment on above: Performed By: #### L [id number] ####Typesetter Apprentice: MARY SOTELO ([phone])[address] Hemoglobin (Bld) [Mass/Vol] 9.3 g/dL Low 11.7-16.0 [facility] Comment on above: Performed By: #### L [id number] ####Typesetter Apprentice: MARY SOTELO ([phone])[address] IMMATURE GRANS % 0.3 % Normal 0.0-2.0 [facility] Comment on above: Performed By: #### L [id number] ####Typesetter Apprentice: MARY SOTELO ([phone])[address] IMMATURE GRANS ABSOLUTE 0.0 10*3/uL Normal <0.1 [facility] Comment on above: Performed By: #### L [id number] ####Typesetter Apprentice: MARY [id number])[facility])[address] [place] [address] Lymphocytes (Bld) [#/Vol] 0.6 10*3/uL Low 1.0-4.3 [facility] Comment on above: Performed By: #### L [id number] ####Typesetter Apprentice: MARY SOTELO ([phone])[facility])[address] [place] [address] Lymphocytes/100 WBC (Bld) 14.8 % Low 15.0-45.0 [facility] Comment on above: Performed By: #### L [id number] ####Typesetter Apprentice: MARY SOTELO ([phone])[facility])[address] [place] [address] MCH (RBC) [Entitic mass] 29.3 pg Normal 26.0-34.0 [facility] Comment on above: Performed By: #### L [id number] ####Typesetter Apprentice: MARY SOTELO ([phone])[facility])[address] [place] [address] MCHC 31.5 % Normal 30.5-36.0 [facility] Comment on above: Performed By: #### L [id number] ####Typesetter Apprentice: MARY SOTELO ([phone])[facility])[address] [place] [address] MCV (RBC) [Entitic vol] 93.1 fL Normal 77.0-99.0 [facility] Comment on above: Performed By: #### L [id number] ####Typesetter Apprentice: MARY SOTELO ([phone])[facility])[address] [place] [address] Monocytes (Bld) [#/Vol] 0.3 10*3/uL Normal 0.0-0.9 [facility] Comment on above: Performed By: #### L [id number] ####Typesetter Apprentice: MARY SOTELO ([phone])[facility])[address] [place] [address] [place] Monocytes/100 WBC (Bld) 6.8 % Normal 5.0-13.0 [facility] Comment on above: Performed By: #### L [id number] ####Typesetter Apprentice: MARY SOTELO ([phone])[facility] ([facility])[address] [place] [address] NEUTROPHILS ABSOLUTE 3.0 10*3/uL Normal 1.8-7.5 [facility] Comment on above: Performed By: #### L [id number] ####Typesetter Apprentice: MARY SOTELO ([id number])[facility] ([facility])[address] [place] [address] Neutrophils/100 WBC (Bld) 75.3 % Normal 38.0-82.0 [facility] Comment on above: Performed By: #### L [id number] ####Typesetter Apprentice: MARY SOTELO ([phone])[facility] ([facility])[address] [place] [address] NRBC 0.0 /100 WBCs Normal 0.0-2.0 [facility] Comment on above: Performed By: #### L [id number] ####Typesetter Apprentice: MARY SOTELO ([phone])[facility] ([facility])[address] [place] [address] Platelet mean volume (Bld) [Entitic vol] 10.6 fL Normal 9.0-12.7 [facility] Comment on above: Performed By: #### L [id number] ####Typesetter Apprentice: MARY SOTELO ([phone])[facility] ([facility])[address] [place] [address] Platelets (Bld) [#/Vol] 114 10*3/uL Low 140-440 [facility] Comment on above: Performed By: #### L [id number] ####Typesetter Apprentice: MARY SOTELO ([phone])[facility] ([facility])[address] [place] [address] RBC (Bld) [#/Vol] 3.17 10*6/uL Low 3.80-5.20 [facility] Comment on above: Performed By: #### L [id number] ####Typesetter Apprentice: MARY SOTELO ([phone])[facility] ([facility])[address] [place] [address] WBC (Bld) [#/Vol] 4.0 10*3/uL Normal 3.6-10.7 [facility] Comment on above: Performed By: #### L [id number] ####Typesetter Apprentice: MARY SOTELO ([phone])[facility] ([facility])[address] [place] [address] Calcium.ionized [Moles/Vol]O rdered By: Yoana Boyd on 08-19-2024 Calcium.ionized (Bld) [Moles/Vol] 4.2 mg/dL Low 4.30 - 5.20 mg/dL [facility] Interpretation and review of laboratory results Abnormal [facility] PH, IONIZED CALCIUM 7.21 Low 7.31 - 7.46 [facility] GLUCOSE, RANDOMon 08-19-2024 Glucose [Mass/Vol] 653 mg/dL Critically high 70-100 S [facility] Comment on above: Performed By: #### L [id number] ####Typesetter Apprentice: MARY SOTELO ([phone])[facility] ([facility])[address] [place] [address] Glucose (Bld) [Mass/Vol]on 1 Glucose [Mass/Vol] 653 mg/dL Critically high 70 - 1 00 mg/dL [facility] Interpretation and review of laboratory results Abnormal [facility] Laboratory - Chemistry and C hemistry - challengeon 08-19-2024 Glucose [Mass/Vol] 118 mg/dL High 70 - 100 mg/dL [facility] Glucose [Mass/Vol] 162 mg/dL High 70 - 100 mg/dL [facility] Glucose [Mass/Vol] 268 mg/dL High 70 - 100 mg/dL [facility] Glucose [Mass/Vol] 414 mg/dL High 70 - 100 mg/dL [facility] Glucose [Mass/Vol] mg/dL High 70 - 100 mg/dL [facility] Glucose [Mass/Vol] mg/dL High 70 - 100 mg/dL [facility] Glucose [Mass/Vol] mg/dL High 70 - 100 mg/dL [facility] Beta hydroxybutyrate [Mass/Vol] 7.01 mg/dL High 0.20 - 2.81 mg/dL [facility] Magnesium [Mass/Vol] 2 mg/dL 1.6 - 2 .3 mg/dL [facility] Glucose [Mass/Vol] mg/dL High 70 - 100 mg/dL [facility] Laboratory - Microbiology an d Antimicrobial susceptibilityon 08-19-2024 Bacteria identified Cx Nom (Bld) No growth at 5 days [facility] MAGNESIUMon 08-19-2024 Magnesium [Mass/Vol] 2.0 mg/dL Normal 1.6-2.3 [facility] Comment on above: Performed By: #### L AB113, LAB15, [id number], [id number] ####Typesetter Apprentice: MARY SOTELO ([phone])[facility] ([address] No Panel Informationon 08-19 Interpretation and review of laboratory results Abnormal [facility] Interpretation and review of laboratory results Abnormal [facility] Interpretation and review of laboratory results Abnormal [facility] Interpretation and review of laboratory results Abnormal [facility] Interpretation and review of laboratory results Abnormal [facility] Interpretation and review of laboratory results Abnormal [facility] Interpretation and review of laboratory results Abnormal [facility] Interpretation and review of laboratory results Abnormal [facility] Interpretation and review of laboratory results Normal [facility] Interpretation and review of laboratory results Abnormal [facility] Nursing Noteon 08-19-2024 Nursing Note Pt MBS for dinner wa s 162 orders for 8 scheduled H. Log and [address] Baires paged. Orders to give SSI and Hold scheduled 8 units if pt does not eat dinner. Pt did not want to eat dinner; 8 units held Normal [facility] Nursing Note Pt seemingly more confused and a little more lethargic than this morning. Med Team paged to make aware Normal [facility] Nursing Note Pt recheck MBS was 527. Dr. Bijan Jarrett paged to make aware Normal [facility] Nursing Note Pt MBS still reading HI. Med Team at bedside. Physician stated no need to draw confirmation, but to give 1 time 15 unit of R and recheck in one hour. Normal [facility] Nursing Note Dr. Bijan Jarrett paged wi th repeat glucose of 653 Normal [facility] Nursing Note Critical Care lab called with result of 626. Med Team A paged regarding. Normal [facility] PHOSPHORUSon 08-19-2024 Phosphate [Mass/Vol] 3.8 mg/dL Normal 2.5-4.5 [facility] Comment on above: Performed By: #### L AB113, LAB15, [id number], [id number] ####Typesetter Apprentice: MARY SOTELO ([phone])[facility])[address] [place] [address] [place] Phosphate [Moles/Vol]on 08-03 Phosphate [Mass/Vol] 3.8 mg/dL 2.5 - 4 .5 mg/dL [facility] Progress Noteon 08-19-2024 Progress Note Normal [facility] Progress Note Normal [facility] Note Normal [facility] Progress Note Normal [facility] BASIC METABOLIC PANELon 08-03 Anion gap [Moles/Vol] 4 mmol/L Normal 3-13 [facility] Comment on above: Performed By: #### L AB113, [id number], LAB15 ####Typesetter Apprentice: MARY SOTELO ([phone])[facility] ([facility])[address] [place] [address] [place] Calcium [Mass/Vol] 7.9 mg/dL Low 8.4-10.4 [facility] Comment on above: Performed By: #### L AB113, [id number], LAB15 ####Typesetter Apprentice: MARY SOTELO ([phone])[facility])[address] [place] [address] [place] Chloride [Moles/Vol] 99 mmol/L Normal 98-107 [facility] Comment on above: Performed By: #### L AB113, [id number], LAB15 ####Typesetter Apprentice: MARY SOTELO ([phone])[facility] [place] [address] CO2 [Moles/Vol] 27 mmol/L Normal 22-30 [facility] Comment on above: Performed By: #### L AB113, [id number], LAB15 ####Typesetter Apprentice: MARY SOTELO ([phone])[facility] ([facility])[address] [place] [address] Creatinine [Mass/Vol] 3.57 mg/dL High 0.52-1.04 [facility] Comment on above: Performed By: #### Dora AB113, [id number], LAB15 ####Typesetter Apprentice: MARY SOTELO ([phone])[facility])[address] [place] [address] GLOMERULAR FILTRATION RATE ML/MIN/1.73 SQ M.PREDICTED 13.7 mL/min/1.73m*2 Low >60.0 [facility] Comment on above: Result Comment: Calc ulation based on the Chronic Kidney Disease Epidemiology Collaboration (CKD-EPI) equation refit without adjustment for race Performed By: #### Dora AB113, [id number], LAB15 ####Typesetter Apprentice: MARY SOTELO ([phone])[facility] ([facility])[address] [place] [address] Glucose [Mass/Vol] 281 mg/dL High 70-100 [facility] Comment on above: Performed By: #### Dora AB113, [id number], LAB15 ####Typesetter Apprentice: MARY SOTELO ([phone])[facility] ([facility])[address] [place] [address] [place] Potassium [Moles/Vol] 3.8 mmol/L Normal 3.5-5.1 [facility] Comment on above: Performed By: #### L AB113, [id number], LAB15 ####Typesetter Apprentice: MARY SOTELO ([phone])[facility] ([facility])[address] [place] [address] [place] Sodium [Moles/Vol] 130 mmol/L Low 135-145 [facility] Comment on above: Performed By: #### L AB113, [id number], LAB15 ####Typesetter Apprentice: MARY SOTELO ([id number])[facility] ([facility])[address] [place] [address] Urea nitrogen [Mass/Vol] 35 mg/dL High 7-17 [facility] Comment on above: Performed By: #### L AB113, [id number], LAB15 ####Typesetter Apprentice: MARY SOTELO ([phone])[facility] ([facility])[address] [place] [address] Basic metabolic 1998 panelon 08-18-2024 Anion gap [Moles/Vol] 4 mmol/L 3 - 13 mmol/L [facility] Calcium [Mass/Vol] 7.9 mg/dL Low 8.4 - 10. 4 mg/dL [facility] Chloride [Moles/Vol] 99 mmol/L 98 - 10 7 mmol/L [facility] CO2 [Moles/Vol] 27 mmol/L 22 - 30 mmol/L [facility] Creatinine [Mass/Vol] 3.57 mg/dL High 0.52 - 1.04 mg/dL [facility] GFR/1.73 sq M.predicted (S/P/Bld) [Vol rate/Area] 13.7 mL/min Low - PINF [facility] Glucose [Mass/Vol] 281 mg/dL High 70 - 100 mg/dL [facility] Interpretation and review of laboratory results Abnormal [facility] Potassium [Moles/Vol] 3.8 mmol/L 3.5 - 5.1 mmol/L [facility] Sodium [Moles/Vol] 130 mmol/L Low 135 - 145 mmol/L [facility] Urea nitrogen [Mass/Vol] 35 mg/dL High 7 - 17 mg/dL [facility] CALCIUM, IONIZEDon CALCIUM IONIZED 4.50 mg/dL Normal 4.30-5.20 [facility] Comment on above: Performed By: #### L [id number] ####Typesetter Apprentice: MARY SOTELO ([phone])[facility] ([facility])[address] [place] [address] PH, IONIZED CALCIUM 7.26 Low 7.31-7.46 [facility] Comment on above: Performed By: #### L [id number] ####Typesetter Apprentice: MARY SOTELO ([phone])[facility] ([address] CARECOORDon 08-18-2024 CARECOORD Normal [facility] CBC W Auto Differential pane l (Bld)on 08-18-2024 Basophils (Bld) [#/Vol] 0 10*3/uL 0.0 - 0.2 10*3/uL [facility] Basophils/100 WBC (Bld) 0.2 % 0.0 - 2.0 % [facility] Eosinophils (Bld) [#/Vol] 0.1 10*3/uL 0.0 - 0.5 10*3/uL [facility] Eosinophils/100 WBC (Bld) 2.9 % 0.0 - 6.0 % [facility] Erythrocyte distribution width (RBC) [Ratio] 15.7 % High 11.5 - 15.0 % [facility] Hematocrit (Bld) [Volume fraction] 29.1 % Low 35.0 - 47.0 % [facility] Hemoglobin (Bld) [Mass/Vol] 9.2 g/dL Low 11.7 - 16.0 g/dL [facility] Immature granulocytes (Bld) [#/Vol] 0 10*3/uL NINF - 0.1 10*3/uL [facility] Immature granulocytes/100 WBC (Bld) 0.7 % 0.0 - 2.0 % [facility] Interpretation and review of laboratory results Abnormal [facility] IPF 4 [facility] Lymphocytes (Bld) [#/Vol] 0.8 10*3/uL Low 1.0 - 4.3 10*3/uL [facility] Lymphocytes/100 WBC (Bld) 17.9 % 15.0 - 45.0 % [facility] MCH (RBC) [Entitic mass] 29.1 pg 26.0 - 34.0 pg [facility] MCHC (RBC) [Mass/Vol] 31.6 % 30.5 - 36.0 % [facility] MCV (RBC) [Entitic vol] 92.1 fL 77.0 - 99.0 fL [facility] Monocytes (Bld) [#/Vol] 0.4 10*3/uL 0.0 - 0.9 10*3/uL [facility] Monocytes/100 WBC (Bld) 7.8 % 5.0 - 13.0 % [facility] Neutrophils (Bld) [#/Vol] 3.2 10*3/uL 1.8 - 7.5 10*3/uL [facility] Neutrophils/100 WBC (Bld) 70.5 % 38.0 - 82.0 % [facility] Nucleated RBC/100 WBC (Bld) [Ratio] 0 % [facility] Platelet mean volume (Bld) [Entitic vol] 10.2 fL 9.0 - 12.7 fL [facility] Platelets (Bld) [#/Vol] 111 10*3/uL Low 140 - 440 10*3/uL [facility] RBC (Bld) [#/Vol] 3.16 10*6/uL Low 3.80 - 5.2 0 10*6/uL [facility] WBC (Bld) [#/Vol] 4.5 10*3/uL 3.6 - 10.7 10*3/uL [facility] CBC WITH AUTO DIFFERENTIALon 08-18-2024 Basophils (Bld) [#/Vol] 0.0 10*3/uL Normal 0.0-0.2 [facility] Comment on above: Performed By: #### L [id number] ####Typesetter Apprentice: MARY SOTELO ([phone])[facility])[address] [place] [address] Basophils/100 WBC (Bld) 0.2 % Normal 0.0-2.0 [facility] Comment on above: Performed By: #### L [id number] ####Typesetter Apprentice: MARY SOTELO ([phone])[facility] ([facility])[address] [place] [address] [place] Eosinophils (Bld) [#/Vol] 0.1 10*3/uL Normal 0.0-0.5 [facility] Comment on above: Performed By: #### L [id number] ####Typesetter Apprentice: MARY SOTELO ([phone])[facility])[address] [place] [address] [place] Eosinophils/100 WBC (Bld) 2.9 % Normal 0.0-6.0 [facility] Comment on above: Performed By: #### L [id number] ####Typesetter Apprentice: MARY SOTELO ([phone])[facility])[address] [place] [address] Erythrocyte distribution width (RBC) [Ratio] 15.7 % High 11.5-15.0 [facility] Comment on above: Performed By: #### L [id number] ####Typesetter Apprentice: MARY SOTELO ([phone])[facility])[address] [place] [address] Hematocrit (Bld) [Volume fraction] 29.1 % Low 35.0-47.0 [facility] Comment on above: Performed By: #### L [id number] ####Typesetter Apprentice: MARY SOTELO ([phone])[address] Hemoglobin (Bld) [Mass/Vol] 9.2 g/dL Low 11.7-16.0 [facility] Comment on above: Performed By: #### L [id number] ####Typesetter Apprentice: MARY SOTELO ([phone])[facility])[address] [place] [address] IMMATURE GRANS % 0.7 % Normal 0.0-2.0 [facility] Comment on above: Performed By: #### L [id number] ####Typesetter Apprentice: MARY SOTELO ([phone])[address] IMMATURE GRANS ABSOLUTE 0.0 10*3/uL Normal <0.1 [facility] Comment on above: Performed By: #### L [id number] ####Typesetter Apprentice: MARY SOTELO ([phone])[address] IPF 4 Normal [facility] Comment on above: Performed By: #### L [id number] ####Typesetter Apprentice: MARY SOTELO ([phone])[facility])[address] [place] [address] Lymphocytes (Bld) [#/Vol] 0.8 10*3/uL Low 1.0-4.3 [facility] Comment on above: Performed By: #### L [id number] ####Typesetter Apprentice: MARY SOTELO ([phone])[facility])[address] [place] [address] Lymphocytes/100 WBC (Bld) 17.9 % Normal 15.0-45.0 [facility] Comment on above: Performed By: #### L [id number] ####Typesetter Apprentice: MARY SOTELO ([phone])[facility])[address] [place] [address] MCH (RBC) [Entitic mass] 29.1 pg Normal 26.0-34.0 [facility] Comment on above: Performed By: #### L [id number] ####Typesetter Apprentice: MARY SOTELO ([phone])[facility])[address] [place] [address] MCHC 31.6 % Normal 30.5-36.0 [facility] Comment on above: Performed By: #### L [id number] ####Typesetter Apprentice: MARY SOTELO ([phone])[facility])[address] [place] [address] MCV (RBC) [Entitic vol] 92.1 fL Normal 77.0-99.0 [facility] Comment on above: Performed By: #### L [id number] ####Typesetter Apprentice: MARY SOTELO ([phone])[facility])[address] [place] [address] Monocytes (Bld) [#/Vol] 0.4 10*3/uL Normal 0.0-0.9 [facility] Comment on above: Performed By: #### L [id number] ####Typesetter Apprentice: MARY SOTELO ([phone])[facility])[address] [place] [address] Monocytes/100 WBC (Bld) 7.8 % Normal 5.0-13.0 [facility] Comment on above: Performed By: #### L [id number] ####Typesetter Apprentice: MARY SOTELO ([phone])[facility] ([facility])[address] [place] [address] NEUTROPHILS ABSOLUTE 3.2 10*3/uL Normal 1.8-7.5 [facility] Comment on above: Performed By: #### L [id number] ####Typesetter Apprentice: MARY SOTELO ([phone])[facility] ([facility])[address] [place] [address] Neutrophils/100 WBC (Bld) 70.5 % Normal 38.0-82.0 [facility] Comment on above: Performed By: #### L [id number] ####Typesetter Apprentice: MARY SOTELO ([phone])[facility] ([facility])[address] [place] [address] NRBC 0.0 /100 WBCs Normal 0.0-2.0 [facility] Comment on above: Performed By: #### L [id number] ####Typesetter Apprentice: MARY SOTELO ([phone])[facility] ([facility])[address] [place] [address] Platelet mean volume (Bld) [Entitic vol] 10.2 fL Normal 9.0-12.7 [facility] Comment on above: Performed By: #### L [id number] ####Typesetter Apprentice: MARY SOTELO ([phone])[facility] ([facility])[address] [place] [address] [place] Platelets (Bld) [#/Vol] 111 10*3/uL Low 140-440 [facility] Comment on above: Performed By: #### L [id number] ####Typesetter Apprentice: MARY SOTELO ([phone])[facility] ([facility])[address] [place] [address] [place] RBC (Bld) [#/Vol] 3.16 10*6/uL Low 3.80-5.20 [facility] Comment on above: Performed By: #### L [id number] ####Typesetter Apprentice: MARY SOTELO ([phone])[facility] ([facility])[address] [place] [address] WBC (Bld) [#/Vol] 4.5 10*3/uL Normal 3.6-10.7 [facility] Comment on above: Performed By: #### L [id number] ####Typesetter Apprentice: MARY SOTELO ([phone])[facility] ([facility])[address] [place] [address] Calcium.ionized [Moles/Vol]O rdered By: Elliott Macedo on 08-18-2024 Calcium.ionized (Bld) [Moles/Vol] 4.5 mg/dL 4.30 - 5.20 mg/dL [facility] Interpretation and review of laboratory results Abnormal [facility] PH, IONIZED CALCIUM 7.26 Low 7.31 - 7.46 [facility] IDNon 08-18-2024 IDN Normal [facility] Laboratory - Chemistry and C hemistry - challengeon 08-18-2024 Glucose [Mass/Vol] 297 mg/dL High 70 - 100 mg/dL [facility] Glucose [Mass/Vol] 325 mg/dL High 70 - 100 mg/dL [facility] Glucose [Mass/Vol] 181 mg/dL High 70 - 100 mg/dL [facility] Glucose [Mass/Vol] 187 mg/dL High 70 - 100 mg/dL [facility] Magnesium [Mass/Vol] 2 mg/dL 1.6 - 2 .3 mg/dL [facility] MAGNESIUMon 08-18-2024 Magnesium [Mass/Vol] 2.0 mg/dL Normal 1.6-2.3 [facility] Comment on above: Performed By: #### L [id number], [id number], LAB15 ####Typesetter Apprentice: MARY SOTELO ([phone])[facility] ([facility])[address] [place] [address] No Panel Informationon 08-18 Interpretation and review of laboratory results Abnormal [facility] Interpretation and review of laboratory results Abnormal [facility] Interpretation and review of laboratory results Abnormal [facility] Interpretation and review of laboratory results Abnormal [facility] Interpretation and review of laboratory results Normal [facility] Nursing Noteon 08-18-2024 Nursing Note Normal [facility] PHOSPHORUSon 08-18-2024 Phosphate [Mass/Vol] 3.4 mg/dL Normal 2.5-4.5 [facility] Comment on above: Performed By: #### L [id number], [id number], LAB15 ####Typesetter Apprentice: MARY SOTELO ([phone])[facility] ([facility])[address] [place] [address] [place] Phosphate [Moles/Vol]on 08-03 Phosphate [Mass/Vol] 3.4 mg/dL 2.5 - 4 .5 mg/dL [facility] Progress Noteon 08-18-2024 Progress Note Normal [facility] Progress Note Normal [facility] Progress Note Normal [facility] Progress Note Normal [facility] BASIC METABOLIC PANELon 08-03 Anion gap [Moles/Vol] 5 mmol/L Normal 3-13 [facility] Comment on above: Performed By: #### Dora SONG, [id number], LAB15 ####Typesetter Apprentice: MARY SOTELO ([phone])[facility] ([facility])[address] [place] [address] [place] Calcium [Mass/Vol] 7.0 mg/dL Low 8.4-10.4 [facility] Comment on above: Performed By: #### Dora SONG, [id number], LAB15 ####Typesetter Apprentice: MARY SOTELO ([phone])[facility] [place] [address] [place] Chloride [Moles/Vol] 100 mmol/L Normal 98-107 [facility] Comment on above: Performed By: #### Dora AB103, [id number], LAB15 ####Typesetter Apprentice: MARY SOTELO ([phone])[facility] ([facility])[address] [place] [address] [place] CO2 [Moles/Vol] 28 mmol/L Normal 22-30 [facility] Comment on above: Performed By: #### L AB103, [id number], LAB15 ####Typesetter Apprentice: MARY SOTELO ([phone])[facility] [place] [address] Creatinine [Mass/Vol] 2.31 mg/dL High 0.52-1.04 [facility] Comment on above: Performed By: #### L AB103, [id number], LAB15 ####Typesetter Apprentice: MARY SOTELO ([phone])[facility] [place] [address] GLOMERULAR FILTRATION RATE ML/MIN/1.73 SQ M.PREDICTED 23.1 mL/min/1.73m*2 Low >60.0 [facility] Comment on above: Result Comment: Calc ulation based on the Chronic Kidney Disease Epidemiology Collaboration (CKD-EPI) equation refit without adjustment for race Performed By: #### L AB103, [id number], LAB15 ####Typesetter Apprentice: MARY SOTELO ([phone])[facility] [place] [address] Glucose [Mass/Vol] 152 mg/dL High 70-100 [facility] Comment on above: Performed By: #### L AB103, [id number], LAB15 ####Typesetter Apprentice: MARY SOTELO ([phone])[facility] ([facility])[address] [place] [address] Potassium [Moles/Vol] 3.6 mmol/L Normal 3.5-5.1 [facility] Comment on above: Performed By: #### L AB103, [id number], LAB15 ####Typesetter Apprentice: MARY SOTELO ([phone])[facility])[address] [place] [address] [place] Sodium [Moles/Vol] 132 mmol/L Low 135-145 [facility] Comment on above: Performed By: #### L AB103, [id number], LAB15 ####Typesetter Apprentice: MARY SOTELO ([phone])[facility])[address] [place] [address] Urea nitrogen [Mass/Vol] 21 mg/dL High 7-17 [facility] Comment on above: Performed By: #### L AB103, [id number], LAB15 ####Typesetter Apprentice: MARY SOTELO ([phone])[facility] [place] [address] Bacteria identified Cx Nom ( Bld)on 08-17-2024 Interpretation and review of laboratory results Normal [facility] Basic metabolic 1998 panelon 08-17-2024 Anion gap [Moles/Vol] 5 mmol/L 3 - 13 mmol/L [facility] Calcium [Mass/Vol] 7 mg/dL Low 8.4 - 10. 4 mg/dL [facility] Chloride [Moles/Vol] 100 mmol/L 98 - 10 7 mmol/L [facility] CO2 [Moles/Vol] 28 mmol/L 22 - 30 mmol/L [facility] Creatinine [Mass/Vol] 2.31 mg/dL High 0.52 - 1.04 mg/dL [facility] GFR/1.73 sq M.predicted (S/P/Bld) [Vol rate/Area] 23.1 mL/min Low - PINF [facility] Glucose [Mass/Vol] 152 mg/dL High 70 - 100 mg/dL [facility] Interpretation and review of laboratory results Abnormal [facility] Potassium [Moles/Vol] 3.6 mmol/L 3.5 - 5.1 mmol/L [facility] Sodium [Moles/Vol] 132 mmol/L Low 135 - 145 mmol/L [facility] Urea nitrogen [Mass/Vol] 21 mg/dL High 7 - 17 mg/dL [facility] CALCIUM, IONIZEDon 4 CALCIUM IONIZED 3.80 mg/dL Low 4.30-5.20 [facility] Comment on above: Performed By: #### L [id number] ####Typesetter Apprentice: MARY SOTELO ([phone])[facility] ([facility] [place] [address] PH, IONIZED CALCIUM 7.39 Normal 7.31-7.46 [facility] Comment on above: Performed By: #### L AB54 ####Typesetter Apprentice: MARY SOTELO ([phone])[facility] ([address] CARECOORDon 08-17-2024 CARECOFORT WORTH Normal [facility] CBC W Auto Differential pane l (Bld)on 08-17-2024 Basophils (Bld) [#/Vol] 0 10*3/uL 0.0 - 0.2 10*3/uL [facility] Basophils/100 WBC (Bld) 0.2 % 0.0 - 2.0 % [facility] Eosinophils (Bld) [#/Vol] 0.1 10*3/uL 0.0 - 0.5 10*3/uL [facility] Eosinophils/100 WBC (Bld) 2.6 % 0.0 - 6.0 % [facility] Erythrocyte distribution width (RBC) [Ratio] 15.8 % High 11.5 - 15.0 % [facility] Hematocrit (Bld) [Volume fraction] 28.7 % Low 35.0 - 47.0 % [facility] Hemoglobin (Bld) [Mass/Vol] 9.1 g/dL Low 11.7 - 16.0 g/dL [facility] Immature granulocytes (Bld) [#/Vol] 0 10*3/uL NINF - 0.1 10*3/uL [facility] Immature granulocytes/100 WBC (Bld) 0.4 % 0.0 - 2.0 % [facility] Interpretation and review of laboratory results Abnormal [facility] IPF 4 [facility] Lymphocytes (Bld) [#/Vol] 0.7 10*3/uL Low 1.0 - 4.3 10*3/uL [facility] Lymphocytes/100 WBC (Bld) 15.7 % 15.0 - 45.0 % [facility] MCH (RBC) [Entitic mass] 29.1 pg 26.0 - 34.0 pg [facility] MCHC (RBC) [Mass/Vol] 31.7 % 30.5 - 36.0 % [facility] MCV (RBC) [Entitic vol] 91.7 fL 77.0 - 99.0 fL [facility] Monocytes (Bld) [#/Vol] 0.3 10*3/uL 0.0 - 0.9 10*3/uL [facility] Monocytes/100 WBC (Bld) 6.8 % 5.0 - 13.0 % [facility] Neutrophils (Bld) [#/Vol] 3.4 10*3/uL 1.8 - 7.5 10*3/uL [facility] Neutrophils/100 WBC (Bld) 74.3 % 38.0 - 82.0 % [facility] Nucleated RBC/100 WBC (Bld) [Ratio] 0 % [facility] Platelet mean volume (Bld) [Entitic vol] 10.7 fL 9.0 - 12.7 fL [facility] Platelets (Bld) [#/Vol] 105 10*3/uL Low 140 - 440 10*3/uL [facility] RBC (Bld) [#/Vol] 3.13 10*6/uL Low 3.80 - 5.2 0 10*6/uL [facility] WBC (Bld) [#/Vol] 4.5 10*3/uL 3.6 - 10.7 10*3/uL [facility] CBC WITH AUTO DIFFERENTIALon 08-17-2024 Basophils (Bld) [#/Vol] 0.0 10*3/uL Normal 0.0-0.2 [facility] Comment on above: Performed By: #### L [id number] ####Typesetter Apprentice: MARY SOTELO ([phone])[facility])[address] [place] [address] Basophils/100 WBC (Bld) 0.2 % Normal 0.0-2.0 [facility] Comment on above: Performed By: #### L [id number] ####Typesetter Apprentice: MARY SOTELO ([phone])[facility] ([facility])[address] [place] [address] [place] Eosinophils (Bld) [#/Vol] 0.1 10*3/uL Normal 0.0-0.5 [facility] Comment on above: Performed By: #### L [id number] ####Typesetter Apprentice: MARY SOTELO ([phone])[facility])[address] [place] [address] [place] Eosinophils/100 WBC (Bld) 2.6 % Normal 0.0-6.0 [facility] Comment on above: Performed By: #### L [id number] ####Typesetter Apprentice: MARY SOTELO ([phone])[address] Erythrocyte distribution width (RBC) [Ratio] 15.8 % High 11.5-15.0 [facility] Comment on above: Performed By: #### L [id number] ####Typesetter Apprentice: MARY SOTELO ([phone])[address] Hematocrit (Bld) [Volume fraction] 28.7 % Low 35.0-47.0 [facility] Comment on above: Performed By: #### L [id number] ####Typesetter Apprentice: MARY SOTELO ([phone])[address] Hemoglobin (Bld) [Mass/Vol] 9.1 g/dL Low 11.7-16.0 [facility] Comment on above: Performed By: #### L [id number] ####Typesetter Apprentice: MARY SOTELO ([phone])[address] IMMATURE GRANS % 0.4 % Normal 0.0-2.0 [facility] Comment on above: Performed By: #### L [id number] ####Typesetter Apprentice: MARY SOTELO ([phone])[address] IMMATURE GRANS ABSOLUTE 0.0 10*3/uL Normal <0.1 [facility] Comment on above: Performed By: #### L [id number] ####Typesetter Apprentice: MARY SOTELO ([phone])[address] IPF 4 Normal [facility] Comment on above: Performed By: #### L [id number] ####Typesetter Apprentice: MARY [phone])[address] [place] [address] [place] Lymphocytes (Bld) [#/Vol] 0.7 10*3/uL Low 1.0-4.3 [facility] Comment on above: Performed By: #### L [id number] ####Typesetter Apprentice: MARY SOTELO ([phone])[facility])[address] [place] [address] Lymphocytes/100 WBC (Bld) 15.7 % Normal 15.0-45.0 [facility] Comment on above: Performed By: #### L [id number] ####Typesetter Apprentice: MARY SOTELO ([phone])[facility])[address] [place] [address] MCH (RBC) [Entitic mass] 29.1 pg Normal 26.0-34.0 [facility] Comment on above: Performed By: #### L [id number] ####Typesetter Apprentice: MARY SOTELO ([phone])[facility])[address] [place] [address] MCHC 31.7 % Normal 30.5-36.0 [facility] Comment on above: Performed By: #### L [id number] ####Typesetter Apprentice: MARY SOTELO ([phone])[facility])[address] [place] [address] MCV (RBC) [Entitic vol] 91.7 fL Normal 77.0-99.0 [facility] Comment on above: Performed By: #### L [id number] ####Typesetter Apprentice: MARY SOTELO ([phone])[facility])[address] [place] [address] Monocytes (Bld) [#/Vol] 0.3 10*3/uL Normal 0.0-0.9 [facility] Comment on above: Performed By: #### L [id number] ####Typesetter Apprentice: MARY SOTELO ([phone])[facility])[address] [place] [address] Monocytes/100 WBC (Bld) 6.8 % Normal 5.0-13.0 [facility] Comment on above: Performed By: #### L [id number] ####Typesetter Apprentice: MARY SOTELO ([phone])[facility] ([facility])[address] [place] [address] NEUTROPHILS ABSOLUTE 3.4 10*3/uL Normal 1.8-7.5 [facility] Comment on above: Performed By: #### L [id number] ####Typesetter Apprentice: MARY SOTELO ([phone])[facility] ([facility])[address] [place] [address] Neutrophils/100 WBC (Bld) 74.3 % Normal 38.0-82.0 [facility] Comment on above: Performed By: #### L [id number] ####Typesetter Apprentice: MARY SOTELO ([phone])[facility] ([facility])[address] [place] [address] NRBC 0.0 /100 WBCs Normal 0.0-2.0 [facility] Comment on above: Performed By: #### L [id number] ####Typesetter Apprentice: MARY SOTELO ([phone])[facility] ([facility])[address] [place] [address] Platelet mean volume (Bld) [Entitic vol] 10.7 fL Normal 9.0-12.7 [facility] Comment on above: Performed By: #### L [id number] ####Typesetter Apprentice: MARY SOTELO ([phone])[facility] ([facility])[address] [place] [address] Platelets (Bld) [#/Vol] 105 10*3/uL Low 140-440 [facility] Comment on above: Performed By: #### L [id number] ####Typesetter Apprentice: MARY SOTELO ([phone])[facility] ([facility])[address] [place] [address] RBC (Bld) [#/Vol] 3.13 10*6/uL Low 3.80-5.20 [facility] Comment on above: Performed By: #### L [id number] ####Typesetter Apprentice: MARY SOTELO ([phone])[facility] ([facility])[address] [place] [address] WBC (Bld) [#/Vol] 4.5 10*3/uL Normal 3.6-10.7 [facility] Comment on above: Performed By: #### L [id number] ####Typesetter Apprentice: MARY SOTELO ([phone])[facility] ([facility])[address] [place] [address] Calcium.ionized [Moles/Vol]o n 08-17-2024 Calcium.ionized (Bld) [Moles/Vol] 3.8 mg/dL Low 4.30 - 5.20 mg/dL [facility] Interpretation and review of laboratory results Abnormal [facility] PH, IONIZED CALCIUM 7.39 7.31 - 7.46 [facility] IDNon 08-17-2024 IDN Normal [facility] Laboratory - Chemistry and C hemistry - challengeon 08-17-2024 Glucose [Mass/Vol] 178 mg/dL High 70 - 100 mg/dL [facility] Glucose [Mass/Vol] 112 mg/dL High 70 - 100 mg/dL [facility] Glucose [Mass/Vol] 213 mg/dL High 70 - 100 mg/dL [facility] Glucose [Mass/Vol] 286 mg/dL High 70 - 100 mg/dL [facility] Magnesium [Mass/Vol] 2 mg/dL 1.6 - 2 .3 mg/dL [facility] Laboratory - Microbiology an d Antimicrobial susceptibilityon 08-17-2024 Bacteria identified Cx Nom (Bld) No growth at 5 days [facility] MAGNESIUMon 08-17-2024 Magnesium [Mass/Vol] 2.0 mg/dL Normal 1.6-2.3 [facility] Comment on above: Performed By: #### L [id number], [id number], LAB15 ####Typesetter Apprentice: MARY SOTELO ([phone])[facility] ([facility])[address] [place] [address] No Panel Informationon 08-17 Interpretation and review of laboratory results Abnormal [facility] Interpretation and review of laboratory results Abnormal [facility] Interpretation and review of laboratory results Abnormal [facility] Interpretation and review of laboratory results Abnormal [facility] Interpretation and review of laboratory results Normal [facility] PHOSPHORUSon 08-17-2024 Phosphate [Mass/Vol] 2.8 mg/dL Normal 2.5-4.5 [facility] Comment on above: Performed By: #### L AB103, [id number], LAB15 ####Typesetter Apprentice: MARY SOTELO ([phone])[facility] ([facility])[address] [place] [address] [place] Phosphate [Moles/Vol]on 08-03 Phosphate [Mass/Vol] 2.8 mg/dL 2.5 - 4 .5 mg/dL [facility] Progress Noteon 08-17-2024 Progress Note Normal [facility] Progress Note Normal [facility] Progress Note Normal [facility] Progress Note Normal [facility] BASIC METABOLIC PANELon 08-03 Anion gap [Moles/Vol] 6 mmol/L Normal 3-13 [facility] Comment on above: Performed By: #### L AB103, [id number], LAB15 ####Typesetter Apprentice: MARY SOTELO ([phone])[facility] ([facility])[address] [place] [address] [place] Calcium [Mass/Vol] 7.2 mg/dL Low 8.4-10.4 [facility] Comment on above: Performed By: #### L AB103, [id number], LAB15 ####Typesetter Apprentice: MARY SOTELO ([phone])[facility] ([facility])[address] [place] [address] [place] Chloride [Moles/Vol] 98 mmol/L Normal 98-107 [facility] Comment on above: Performed By: #### L AB103, [id number], LAB15 ####Typesetter Apprentice: MARY SOTELO ([phone])[facility] ([facility])[address] [place] [address] [place] CO2 [Moles/Vol] 27 mmol/L Normal 22-30 [facility] Comment on above: Performed By: #### L AB103, [id number], LAB15 ####Typesetter Apprentice: MARY SOTELO ([phone])[facility])[address] [place] [address] Creatinine [Mass/Vol] 3.90 mg/dL High 0.52-1.04 [facility] Comment on above: Performed By: #### L AB103, [id number], LAB15 ####Typesetter Apprentice: MARY SOTELO ([phone])[facility])[address] [place] [address] GLOMERULAR FILTRATION RATE ML/MIN/1.73 SQ M.PREDICTED 12.3 mL/min/1.73m*2 Low >60.0 [facility] Comment on above: Result Comment: Calc ulation based on the Chronic Kidney Disease Epidemiology Collaboration (CKD-EPI) equation refit without adjustment for race Performed By: #### L AB103, [id number], LAB15 ####Typesetter Apprentice: MARY SOTELO ([phone])[facility])[address] [place] [address] Glucose [Mass/Vol] 362 mg/dL High 70-100 [facility] Comment on above: Performed By: #### L AB103, [id number], LAB15 ####Typesetter Apprentice: MARY SOTELO ([phone])[facility])[address] [place] [address] Potassium [Moles/Vol] 4.1 mmol/L Normal 3.5-5.1 [facility] Comment on above: Performed By: #### L AB103, [id number], LAB15 ####Typesetter Apprentice: MARY SOTELO ([phone])[facility])[address] [place] [address] [place] Sodium [Moles/Vol] 131 mmol/L Low 135-145 [facility] Comment on above: Performed By: #### L AB103, [id number], LAB15 ####Typesetter Apprentice: MARY SOTELO ([phone])[facility])[address] [place] [address] [place] Urea nitrogen [Mass/Vol] 38 mg/dL High 7-17 [facility] Comment on above: Performed By: #### L AB103, [id number], LAB15 ####Typesetter Apprentice: MARY SOTELO ([phone])[facility] ([facility])[address] [place] [address] Bacteria identified Cx Nom ( U)Ordered By: Matilde Ronquillo on 08-16-2024 Interpretation and review of laboratory results Abnormal [facility] Basic metabolic 1998 panelon 08-16-2024 Anion gap [Moles/Vol] 6 mmol/L 3 - 13 mmol/L [facility] Calcium [Mass/Vol] 7.2 mg/dL Low 8.4 - 10. 4 mg/dL [facility] Chloride [Moles/Vol] 98 mmol/L 98 - 10 7 mmol/L [facility] CO2 [Moles/Vol] 27 mmol/L 22 - 30 mmol/L [facility] Creatinine [Mass/Vol] 3.9 mg/dL High 0.52 - 1.04 mg/dL [facility] GFR/1.73 sq M.predicted (S/P/Bld) [Vol rate/Area] 12.3 mL/min Low - PINF [facility] Glucose [Mass/Vol] 362 mg/dL High 70 - 100 mg/dL [facility] Interpretation and review of laboratory results Abnormal [facility] Potassium [Moles/Vol] 4.1 mmol/L 3.5 - 5.1 mmol/L [facility] Sodium [Moles/Vol] 131 mmol/L Low 135 - 145 mmol/L [facility] Urea nitrogen [Mass/Vol] 38 mg/dL High 7 - 17 mg/dL [facility] CALCIUM, IONIZEDon 4 CALCIUM IONIZED 4.20 mg/dL Low 4.30-5.20 [facility] Comment on above: Performed By: #### L [id number] ####Typesetter Apprentice: MARY SOTELO ([phone])[facility] [place] [address] PH, IONIZED CALCIUM 7.16 Low 7.31-7.46 [facility] Comment on above: Performed By: #### L AB54 ####Typesetter Apprentice: MARY SOTELO ([phone])[facility] [place] [address] CARECOORDon 08-16-2024 [facility] Normal [facility] CBC W Auto Differential pane l (Bld)on 08-16-2024 Basophils (Bld) [#/Vol] 0 10*3/uL 0.0 - 0.2 10*3/uL [facility] Basophils/100 WBC (Bld) 0.2 % 0.0 - 2.0 % [facility] Eosinophils (Bld) [#/Vol] 0 10*3/uL 0.0 - 0.5 10*3/uL [facility] Eosinophils/100 WBC (Bld) 0.4 % 0.0 - 6.0 % [facility] Erythrocyte distribution width (RBC) [Ratio] 15.8 % High 11.5 - 15.0 % [facility] Hematocrit (Bld) [Volume fraction] 30 % Low 35.0 - 47.0 % [facility] Hemoglobin (Bld) [Mass/Vol] 9.7 g/dL Low 11.7 - 16.0 g/dL [facility] Immature granulocytes (Bld) [#/Vol] 0 10*3/uL NINF - 0.1 10*3/uL [facility] Immature granulocytes/100 WBC (Bld) 0.6 % 0.0 - 2.0 % [facility] Interpretation and review of laboratory results Abnormal [facility] Lymphocytes (Bld) [#/Vol] 0.5 10*3/uL Low 1.0 - 4.3 10*3/uL [facility] Lymphocytes/100 WBC (Bld) 10.1 % Low 15.0 - 45.0 % [facility] MCH (RBC) [Entitic mass] 29.6 pg 26.0 - 34.0 pg [facility] MCHC (RBC) [Mass/Vol] 32.3 % 30.5 - 36.0 % [facility] MCV (RBC) [Entitic vol] 91.5 fL 77.0 - 99.0 fL [facility] Monocytes (Bld) [#/Vol] 0.3 10*3/uL 0.0 - 0.9 10*3/uL [facility] Monocytes/100 WBC (Bld) 6.9 % 5.0 - 13.0 % [facility] Neutrophils (Bld) [#/Vol] 3.9 10*3/uL 1.8 - 7.5 10*3/uL [facility] Neutrophils/100 WBC (Bld) 81.8 % 38.0 - 82.0 % [facility] Nucleated RBC/100 WBC (Bld) [Ratio] 0 % [facility] Platelet mean volume (Bld) [Entitic vol] 10.2 fL 9.0 - 12.7 fL [facility] Platelets (Bld) [#/Vol] 104 10*3/uL Low 140 - 440 10*3/uL [facility] RBC (Bld) [#/Vol] 3.28 10*6/uL Low 3.80 - 5.2 0 10*6/uL [facility] WBC (Bld) [#/Vol] 4.8 10*3/uL 3.6 - 10.7 10*3/uL [facility] CBC WITH AUTO DIFFERENTIALon 08-16-2024 Basophils (Bld) [#/Vol] 0.0 10*3/uL Normal 0.0-0.2 [facility] Comment on above: Performed By: #### L [id number] ####Typesetter Apprentice: MARY SOTELO ([phone])[address] Basophils/100 WBC (Bld) 0.2 % Normal 0.0-2.0 [facility] Comment on above: Performed By: #### L [id number] ####Typesetter Apprentice: MARY SOTELO ([phone])[facility])[address] [place] [address] Eosinophils (Bld) [#/Vol] 0.0 10*3/uL Normal 0.0-0.5 [facility] Comment on above: Performed By: #### L [id number] ####Typesetter Apprentice: MARY SOTELO ([phone])[facility])[address] [place] [address] [place] Eosinophils/100 WBC (Bld) 0.4 % Normal 0.0-6.0 [facility] Comment on above: Performed By: #### L [id number] ####Typesetter Apprentice: MARY SOTELO ([phone])[facility])[address] [place] [address] Erythrocyte distribution width (RBC) [Ratio] 15.8 % High 11.5-15.0 [facility] Comment on above: Performed By: #### L [id number] ####Typesetter Apprentice: MARY SOTELO ([phone])[facility])[address] [place] [address] Hematocrit (Bld) [Volume fraction] 30.0 % Low 35.0-47.0 [facility] Comment on above: Performed By: #### L [id number] ####Typesetter Apprentice: MARY SOTELO ([phone])[address] Hemoglobin (Bld) [Mass/Vol] 9.7 g/dL Low 11.7-16.0 [facility] Comment on above: Performed By: #### L [id number] ####Typesetter Apprentice: MARY SOTELO ([phone])[facility])[address] [place] [address] IMMATURE GRANS % 0.6 % Normal 0.0-2.0 [facility] Comment on above: Performed By: #### L [id number] ####Typesetter Apprentice: MARY SOTELO ([phone])[facility])[address] [place] [address] IMMATURE GRANS ABSOLUTE 0.0 10*3/uL Normal <0.1 [facility] Comment on above: Performed By: #### L [id number] ####Typesetter Apprentice: MARY SOTELO ([phone])[facility])[address] [place] [address] Lymphocytes (Bld) [#/Vol] 0.5 10*3/uL Low 1.0-4.3 [facility] Comment on above: Performed By: #### L [id number] ####Typesetter Apprentice: MARY OSTELO ([phone])[facility])[address] [place] [address] Lymphocytes/100 WBC (Bld) 10.1 % Low 15.0-45.0 [facility] Comment on above: Performed By: #### L [id number] ####Typesetter Apprentice: MARY SOTEOL ([phone])[facility])[address] [place] [address] MCH (RBC) [Entitic mass] 29.6 pg Normal 26.0-34.0 [facility] Comment on above: Performed By: #### L [id number] ####Typesetter Apprentice: MARY SOTELO ([phone])[facility])[address] [place] [address] MCHC 32.3 % Normal 30.5-36.0 [facility] Comment on above: Performed By: #### L [id number] ####Typesetter Apprentice: MARY SOTELO ([phone])[facility])[address] [place] [address] MCV (RBC) [Entitic vol] 91.5 fL Normal 77.0-99.0 [facility] Comment on above: Performed By: #### L [id number] ####Typesetter Apprentice: MARY SOTEOL ([phone])[facility])[address] [place] [address] Monocytes (Bld) [#/Vol] 0.3 10*3/uL Normal 0.0-0.9 [facility] Comment on above: Performed By: #### L [id number] ####Typesetter Apprentice: MARY SOTELO ([phone])[facility])[address] [place] [address] Monocytes/100 WBC (Bld) 6.9 % Normal 5.0-13.0 [facility] Comment on above: Performed By: #### L [id number] ####Typesetter Apprentice: MARY SOTELO ([phone])[facility])[address] [place] [address] NEUTROPHILS ABSOLUTE 3.9 10*3/uL Normal 1.8-7.5 [facility] Comment on above: Performed By: #### L [id number] ####Typesetter Apprentice: MARY SOTELO ([phone])[facility])[address] [place] [address] Neutrophils/100 WBC (Bld) 81.8 % Normal 38.0-82.0 [facility] Comment on above: Performed By: #### L [id number] ####Typesetter Apprentice: MARY SOTELO ([phone])[facility] ([facility])[address] [place] [address] NRBC 0.0 /100 WBCs Normal 0.0-2.0 [facility] Comment on above: Performed By: #### L [id number] ####Typesetter Apprentice: MARY SOTELO ([phone])[facility])[address] [place] [address] Platelet mean volume (Bld) [Entitic vol] 10.2 fL Normal 9.0-12.7 [facility] Comment on above: Performed By: #### L [id number] ####Typesetter Apprentice: MARY SOTELO ([phone])[facility] ([facility])[address] [place] [address] Platelets (Bld) [#/Vol] 104 10*3/uL Low 140-440 [facility] Comment on above: Performed By: #### L [id number] ####Typesetter Apprentice: MARY SOTELO ([phone])[facility] ([facility])[address] [place] [address] RBC (Bld) [#/Vol] 3.28 10*6/uL Low 3.80-5.20 [facility] Comment on above: Performed By: #### L [id number] ####Typesetter Apprentice: MARY SOTELO ([phone])[facility])[address] [place] [address] WBC (Bld) [#/Vol] 4.8 10*3/uL Normal 3.6-10.7 [facility] Comment on above: Performed By: #### L [id number] ####Typesetter Apprentice: MARY SOTELO ([phone])[facility] [place] [address] Calcium.ionized [Moles/Vol]o n 08-16-2024 Calcium.ionized (Bld) [Moles/Vol] 4.2 mg/dL Low 4.30 - 5.20 mg/dL [facility] Interpretation and review of laboratory results Abnormal [facility] PH, IONIZED CALCIUM 7.16 Low 7.31 - 7.46 [facility] IDNon 08-16-2024 IDN Normal [facility] - Chemistry and C hemistry - challengeon 08-16-2024 Glucose [Mass/Vol] 174 mg/dL High 70 - 100 mg/dL [facility] Glucose [Mass/Vol] 163 mg/dL High 70 - 100 mg/dL [facility] Glucose [Mass/Vol] 350 mg/dL High 70 - 100 mg/dL [facility] Glucose [Mass/Vol] 405 mg/dL High 70 - 100 mg/dL [facility] Magnesium [Mass/Vol] 2.2 mg/dL 1.6 - 2 .3 mg/dL [facility] Laboratory - Microbiology an d Antimicrobial susceptibilityOrdered By: Matilde Ronquillo on 08-16-2024 Bacteria identified Cx Nom (U) >100,000 CFU/mL Abbi albicans Abnormal [facility] MAGNESIUMon 08-16-2024 Magnesium [Mass/Vol] 2.2 mg/dL Normal 1.6-2.3 [facility] Comment on above: Performed By: #### L AB103, [id number], LAB15 ####Typesetter Apprentice: MARY SOTELO ([phone])[facility] [place] [address] No Panel Informationon 08-16 Interpretation and review of laboratory results Abnormal [facility] Interpretation and review of laboratory results Abnormal [facility] Interpretation and review of laboratory results Abnormal [facility] Interpretation and review of laboratory results Abnormal [facility] Interpretation and review of laboratory results Normal [facility] Nursing Noteon 08-16-2024 Nursing Note Normal [facility] PHOSPHORUSon 08-16-2024 Phosphate [Mass/Vol] 4.5 mg/dL Normal 2.5-4.5 [facility] Comment on above: Performed By: #### L AB103, [id number], LAB15 ####Typesetter Apprentice: MARY SOTELO ([phone])[facility] [place] [address] [place] Phosphate [Moles/Vol]on 08-03 Phosphate [Mass/Vol] 4.5 mg/dL 2.5 - 4 .5 mg/dL [facility] Progress Noteon 08-16-2024 Progress Note Normal [facility] Progress Note Normal [facility] Progress Note Normal [facility] Progress Note Normal [facility] BASIC METABOLIC PANELon 08-03 Anion gap [Moles/Vol] 8 mmol/L Normal 3-13 [facility] Comment on above: Performed By: #### Dora ABGabbie, [id number], LAB15 ####Typesetter Apprentice: MARY SOTELO ([phone])[facility] [place] [address] [place] Calcium [Mass/Vol] 7.1 mg/dL Low 8.4-10.4 [facility] Comment on above: Performed By: #### L AB113, [id number], LAB15 ####Typesetter Apprentice: MARY SOTELO ([phone])[facility] [place] [address] [place] Chloride [Moles/Vol] 100 mmol/L Normal 98-107 [facility] Comment on above: Performed By: #### L AB113, [id number], LAB15 ####Typesetter Apprentice: MARY SOTELO ([phone])[facility] ([facility])[address] [place] [address] [place] CO2 [Moles/Vol] 22 mmol/L Normal 22-30 [facility] Comment on above: Performed By: #### L AB113, [id number], LAB15 ####Typesetter Apprentice: MARY SOTELO ([phone])[facility] ([facility])[address] [place] [address] Creatinine [Mass/Vol] 2.97 mg/dL High 0.52-1.04 [facility] Comment on above: Performed By: #### L AB113, [id number], LAB15 ####Typesetter Apprentice: MARY SOTELO ([phone])[facility] ([facility])[address] [place] [address] GLOMERULAR FILTRATION RATE ML/MIN/1.73 SQ M.PREDICTED 17.1 mL/min/1.73m*2 Low >60.0 [facility] Comment on above: Result Comment: Calc ulation based on the Chronic Kidney Disease Epidemiology Collaboration (CKD-EPI) equation refit without adjustment for race Performed By: #### L AB113, [id number], LAB15 ####Typesetter Apprentice: MARY SOTELO ([phone])[facility] ([facility])[address] [place] [address] Glucose [Mass/Vol] 270 mg/dL High 70-100 [facility] Comment on above: Performed By: #### L AB113, [id number], LAB15 ####Typesetter Apprentice: MARY SOTELO ([phone])[facility] ([facility])[address] [place] [address] Potassium [Moles/Vol] 3.9 mmol/L Normal 3.5-5.1 [facility] Comment on above: Performed By: #### L AB113, [id number], LAB15 ####Typesetter Apprentice: MARY SOTELO ([phone])[facility] ([facility])[address] [place] [address] [place] Sodium [Moles/Vol] 130 mmol/L Low 135-145 [facility] Comment on above: Performed By: #### L AB113, [id number], LAB15 ####Typesetter Apprentice: MARY SOTELO ([phone])[facility])[address] [place] [address] [place] Urea nitrogen [Mass/Vol] 27 mg/dL High 7-17 [facility] Comment on above: Performed By: #### L AB113, [id number], LAB15 ####Typesetter Apprentice: MARY SOTELO ([phone])[facility] ([facility])[address] [place] [address] Bacteria identified Cx Nom ( Bld)Ordered By: Kaitlyn Corona on 08-15-2024 Interpretation and review of laboratory results Abnormal [facility] Basic metabolic 1998 panelOr dered By: Deirdre Maciel on 08-15-2024 Anion gap [Moles/Vol] 8 mmol/L 3 - 13 mmol/L [facility] Calcium [Mass/Vol] 7.1 mg/dL Low 8.4 - 10. 4 mg/dL [facility] Chloride [Moles/Vol] 100 mmol/L 98 - 10 7 mmol/L [facility] CO2 [Moles/Vol] 22 mmol/L 22 - 30 mmol/L [facility] Creatinine [Mass/Vol] 2.97 mg/dL High 0.52 - 1.04 mg/dL [facility] GFR/1.73 sq M.predicted (S/P/Bld) [Vol rate/Area] 17.1 mL/min Low - PINF [facility] Glucose [Mass/Vol] 270 mg/dL High 70 - 100 mg/dL [facility] Interpretation and review of laboratory results Abnormal [facility] Potassium [Moles/Vol] 3.9 mmol/L 3.5 - 5.1 mmol/L [facility] Sodium [Moles/Vol] 130 mmol/L Low 135 - 145 mmol/L [facility] Urea nitrogen [Mass/Vol] 27 mg/dL High 7 - 17 mg/dL [facility] CALCIUM, IONIZEDon 4 CALCIUM IONIZED 3.90 mg/dL Low 4.30-5.20 [facility] Comment on above: Performed By: #### L AB54 ####Typesetter Apprentice: MARY SOTELO ([phone])[facility] [place] [address] PH, IONIZED CALCIUM 7.29 Low 7.31-7.46 [facility] Comment on above: Performed By: #### L AB54 ####Typesetter Apprentice: MARY SOTELO ([phone])[facility] ([facility])[address] [place] [address] [place] CBC W Auto Differential pane l (Bld)Ordered By: Olamide Orozco on 08-15-2024 Basophils (Bld) [#/Vol] 0 10*3/uL 0.0 - 0.2 10*3/uL [facility] Basophils/100 WBC (Bld) 0.2 % 0.0 - 2.0 % [facility] Eosinophils (Bld) [#/Vol] 0 10*3/uL 0.0 - 0.5 10*3/uL [facility] Eosinophils/100 WBC (Bld) 0.6 % 0.0 - 6.0 % [facility] Erythrocyte distribution width (RBC) [Ratio] 15.9 % High 11.5 - 15.0 % [facility] Hematocrit (Bld) [Volume fraction] 30.3 % Low 35.0 - 47.0 % [facility] Hemoglobin (Bld) [Mass/Vol] 9.5 g/dL Low 11.7 - 16.0 g/dL [facility] Immature granulocytes (Bld) [#/Vol] 0 10*3/uL NINF - 0.1 10*3/uL [facility] Immature granulocytes/100 WBC (Bld) 0.8 % 0.0 - 2.0 % [facility] Interpretation and review of laboratory results Abnormal [facility] IPF 4 [facility] Lymphocytes (Bld) [#/Vol] 0.6 10*3/uL Low 1.0 - 4.3 10*3/uL [facility] Lymphocytes/100 WBC (Bld) 12.7 % Low 15.0 - 45.0 % [facility] MCH (RBC) [Entitic mass] 29 pg 26.0 - 34.0 pg [facility] MCHC (RBC) [Mass/Vol] 31.4 % 30.5 - 36.0 % [facility] MCV (RBC) [Entitic vol] 92.4 fL 77.0 - 99.0 fL [facility] Monocytes (Bld) [#/Vol] 0.4 10*3/uL 0.0 - 0.9 10*3/uL [facility] Monocytes/100 WBC (Bld) 7.3 % 5.0 - 13.0 % [facility] Neutrophils (Bld) [#/Vol] 3.9 10*3/uL 1.8 - 7.5 10*3/uL [facility] Neutrophils/100 WBC (Bld) 78.4 % 38.0 - 82.0 % [facility] Nucleated RBC/100 WBC (Bld) [Ratio] 0 % [facility] Platelet mean volume (Bld) [Entitic vol] 10.1 fL 9.0 - 12.7 fL [facility] Platelets (Bld) [#/Vol] 90 10*3/uL Low 140 - 440 10*3/uL [facility] RBC (Bld) [#/Vol] 3.28 10*6/uL Low 3.80 - 5.2 0 10*6/uL [facility] WBC (Bld) [#/Vol] 5 10*3/uL 3.6 - 10.7 10*3/uL [facility] CBC WITH AUTO DIFFERENTIALon 08-15-2024 Basophils (Bld) [#/Vol] 0.0 10*3/uL Normal 0.0-0.2 [facility] Comment on above: Performed By: #### L [id number] ####Typesetter Apprentice: MARY SOTELO ([phone])[facility])[address] [place] [address] Basophils/100 WBC (Bld) 0.2 % Normal 0.0-2.0 [facility] Comment on above: Performed By: #### L [id number] ####Typesetter Apprentice: MARY SOTELO ([phone])[facility])[address] [place] [address] Eosinophils (Bld) [#/Vol] 0.0 10*3/uL Normal 0.0-0.5 [facility] Comment on above: Performed By: #### L [id number] ####Typesetter Apprentice: MARY SOTELO ([phone])[facility])[address] [place] [address] Eosinophils/100 WBC (Bld) 0.6 % Normal 0.0-6.0 [facility] Comment on above: Performed By: #### L [id number] ####Typesetter Apprentice: MARY SOTELO ([phone])[facility])[address] [place] [address] Erythrocyte distribution width (RBC) [Ratio] 15.9 % High 11.5-15.0 [facility] Comment on above: Performed By: #### L [id number] ####Typesetter Apprentice: MARY SOTELO ([phone])[facility])[address] [place] [address] Hematocrit (Bld) [Volume fraction] 30.3 % Low 35.0-47.0 [facility] Comment on above: Performed By: #### L [id number] ####Typesetter Apprentice: MARY SOTELO ([phone])[address] Hemoglobin (Bld) [Mass/Vol] 9.5 g/dL Low 11.7-16.0 [facility] Comment on above: Performed By: #### L [id number] ####Typesetter Apprentice: MARY SOTELO ([phone])[address] IMMATURE GRANS % 0.8 % Normal 0.0-2.0 [facility] Comment on above: Performed By: #### L [id number] ####Typesetter Apprentice: MARY SOTELO ([phone])[address] IMMATURE GRANS ABSOLUTE 0.0 10*3/uL Normal <0.1 [facility] Comment on above: Performed By: #### L [id number] ####Typesetter Apprentice: MARY SOETLO ([phone])[address] IPF 4 Normal [facility] Comment on above: Performed By: #### L [id number] ####Typesetter Apprentice: MARY SOTELO ([phone])[address] Lymphocytes (Bld) [#/Vol] 0.6 10*3/uL Low 1.0-4.3 [facility] Comment on above: Performed By: #### L [id number] ####Typesetter Apprentice: MARY SOTELO ([phone])[facility] ([facility])[address] [place] [address] Lymphocytes/100 WBC (Bld) 12.7 % Low 15.0-45.0 [facility] Comment on above: Performed By: #### L [id number] ####Typesetter Apprentice: MARY SOTELO ([phone])[facility])[address] [place] [address] MCH (RBC) [Entitic mass] 29.0 pg Normal 26.0-34.0 [facility] Comment on above: Performed By: #### L [id number] ####Typesetter Apprentice: MARY SOTELO ([phone])[facility])[address] [place] [address] MCHC 31.4 % Normal 30.5-36.0 [facility] Comment on above: Performed By: #### L [id number] ####Typesetter Apprentice: MARY SOTELO ([phone])[facility] ([facility])[address] [place] [address] MCV (RBC) [Entitic vol] 92.4 fL Normal 77.0-99.0 [facility] Comment on above: Performed By: #### L [id number] ####Typesetter Apprentice: MARY SOTELO ([phone])[facility])[address] [place] [address] Monocytes (Bld) [#/Vol] 0.4 10*3/uL Normal 0.0-0.9 [facility] Comment on above: Performed By: #### L [id number] ####Typesetter Apprentice: MARY SOTELO ([phone])[facility])[address] [place] [address] Monocytes/100 WBC (Bld) 7.3 % Normal 5.0-13.0 [facility] Comment on above: Performed By: #### L [id number] ####Typesetter Apprentice: MARY SOTELO ([phone])[facility])[address] [place] [address] NEUTROPHILS ABSOLUTE 3.9 10*3/uL Normal 1.8-7.5 [facility] Comment on above: Performed By: #### L [id number] ####Typesetter Apprentice: MARY SOTELO ([phone])[facility] ([facility])[address] [place] [address] Neutrophils/100 WBC (Bld) 78.4 % Normal 38.0-82.0 [facility] Comment on above: Performed By: #### L [id number] ####Typesetter Apprentice: MARY SOTELO ([phone])[facility] ([facility])[address] [place] [address] NRBC 0.0 /100 WBCs Normal 0.0-2.0 [facility] Comment on above: Performed By: #### L [id number] ####Typesetter Apprentice: MARY SOTELO ([phone])[facility] ([facility])[address] [place] [address] Platelet mean volume (Bld) [Entitic vol] 10.1 fL Normal 9.0-12.7 [facility] Comment on above: Performed By: #### L [id number] ####Typesetter Apprentice: MARY SOTELO ([phone])[facility] ([facility])[address] [place] [address] Platelets (Bld) [#/Vol] 90 10*3/uL Low 140-440 [facility] Comment on above: Performed By: #### L [id number] ####Typesetter Apprentice: MARY SOTELO ([phone])[facility] ([facility])[address] [place] [address] [place] RBC (Bld) [#/Vol] 3.28 10*6/uL Low 3.80-5.20 [facility] Comment on above: Performed By: #### L [id number] ####Typesetter Apprentice: MARY SOTELO ([phone])[facility] ([facility])[address] [place] [address] [place] WBC (Bld) [#/Vol] 5.0 10*3/uL Normal 3.6-10.7 [facility] Comment on above: Performed By: #### L [id number] ####Typesetter Apprentice: MARY SOTELO ([phone])[facility] ([facility])[address] [place] [address] Calcium.ionized [Moles/Vol]O rdered By: Nicole Lakhani on 08-15-2024 Calcium.ionized (Bld) [Moles/Vol] 3.9 mg/dL Low 4.30 - 5.20 mg/dL [facility] Interpretation and review of laboratory results Abnormal [facility] PH, IONIZED CALCIUM 7.29 Low 7.31 - 7.46 [facility] IDNon 08-15-2024 IDN Normal [facility] - Chemistry and C hemistry - challengeon 08-15-2024 Glucose [Mass/Vol] 344 mg/dL High 70 - 100 mg/dL [facility] Glucose [Mass/Vol] 368 mg/dL High 70 - 100 mg/dL [facility] Glucose [Mass/Vol] 340 mg/dL High 70 - 100 mg/dL [facility] Glucose [Mass/Vol] 302 mg/dL High 70 - 100 mg/dL [facility] Magnesium [Mass/Vol] 2.1 mg/dL 1.6 - 2 .3 mg/dL [facility] Laboratory - Microbiology an d Antimicrobial susceptibilityOrdered By: Kaitlyn Corona on 08-15-2024 Bacteria identified Cx Nom (Bld) Staphylococcus epidermidis Critically abnormal [facility] Laboratory - Miscellaneous t estson 08-15-2024 Service comment (Unsp spec) [Interp] 0.052 [facility] - Serology - non- microon 08-15-2024 Heparin induced platelet Ab Ql (S) Negative Negative [facility] MAGNESIUMon 08-15-2024 Magnesium [Mass/Vol] 2.1 mg/dL Normal 1.6-2.3 [facility] Comment on above: Performed By: #### L [id number], [id number], LAB15 ####Typesetter Apprentice: MARY SOTELO ([phone])[facility] ([facility])[address] [place] [address] No Panel Informationon 08-15 Interpretation and review of laboratory results Abnormal [facility] Interpretation and review of laboratory results Abnormal [facility] Interpretation and review of laboratory results Abnormal [facility] Interpretation and review of laboratory results Abnormal [facility] Interpretation and review of laboratory results Normal [facility] PHOSPHORUSon 08-15-2024 Phosphate [Mass/Vol] 4.5 mg/dL Normal 2.5-4.5 [facility] Comment on above: Performed By: #### L AB113, [id number], LAB15 ####Typesetter Apprentice: MARY SOTELO ([phone])[facility] ([facility])[address] [place] [address] [place] Phosphate [Moles/Vol]on 08-03 Phosphate [Mass/Vol] 4.5 mg/dL 2.5 - 4 .5 mg/dL [facility] Progress Noteon 08-15-2024 Progress Note Normal [facility] Progress Note Normal [facility] BASIC METABOLIC PANELon 08-03 Anion gap [Moles/Vol] 10 mmol/L Normal - [facility] Comment on above: Performed By: #### L AB113, [id number], LAB15 ####Typesetter Apprentice: MARY SOTELO ([phone])[facility] ([facility])[address] [place] [address] [place] Calcium [Mass/Vol] 6.8 mg/dL Low 8.4-10.4 [facility] Comment on above: Performed By: #### L AB113, [id number], LAB15 ####Typesetter Apprentice: MARY SOTELO ([phone])[facility] ([facility])[address] [place] [address] [place] Chloride [Moles/Vol] 96 mmol/L Low 98-107 [facility] Comment on above: Performed By: #### L AB113, [id number], LAB15 ####Typesetter Apprentice: MARY SOTELO ([phone])[facility] ([facility])[address] [place] [address] [place] CO2 [Moles/Vol] 25 mmol/L Normal 22-30 [facility] Comment on above: Performed By: #### L AB113, [id number], LAB15 ####Typesetter Apprentice: MARY SOTELO ([phone])[facility] ([facility])[address] [place] [address] Creatinine [Mass/Vol] 1.91 mg/dL High 0.52-1.04 [facility] Comment on above: Performed By: #### L AB113, [id number], LAB15 ####Typesetter Apprentice: MARY SOTELO ([phone])[facility] ([facility])[address] [place] [address] GLOMERULAR FILTRATION RATE ML/MIN/1.73 SQ M.PREDICTED 29.0 mL/min/1.73m*2 Low >60.0 [facility] Comment on above: Result Comment: Calc ulation based on the Chronic Kidney Disease Epidemiology Collaboration (CKD-EPI) equation refit without adjustment for race Performed By: #### Dora AB113, [id number], LAB15 ####Typesetter Apprentice: MARY SOTELO ([phone])[facility] [place] [address] Glucose [Mass/Vol] 361 mg/dL High 70-100 [facility] Comment on above: Performed By: #### L AB113, [id number], LAB15 ####Typesetter Apprentice: MARY SOTELO ([phone])[facility] ([facility])[address] [place] [address] [place] Potassium [Moles/Vol] 3.5 mmol/L Normal 3.5-5.1 [facility] Comment on above: Performed By: #### L AB113, [id number], LAB15 ####Typesetter Apprentice: MARY SOTELO ([phone])[facility] ([facility])[address] [place] [address] [place] Sodium [Moles/Vol] 130 mmol/L Low 135-145 [facility] Comment on above: Performed By: #### L AB113, [id number], LAB15 ####Typesetter Apprentice: MARY SOTELO ([phone])[facility])[address] [place] [address] Urea nitrogen [Mass/Vol] 18 mg/dL High 7-17 [facility] Comment on above: Performed By: #### L AB113, [id number], LAB15 ####Typesetter Apprentice: MARY SOTELO ([phone])[facility] ([facility])[address] [place] [address] BLOOD CULTUREon 08-14-2024 Bacteria identified Cx Nom (Bld) Normal [facility] Comment on above: Performed By: #### L [id number] ####Typesetter Apprentice: MARY SOTELO ([phone])[facility] ([facility])[address] [place] [address] Bacteria identified Cx Nom (Bld) Normal [facility] Comment on above: Performed By: #### L [id number] ####Typesetter Apprentice: MARY SOTELO ([phone])[facility] ([facility])[address] [place] [address] Basic metabolic 1998 panelon 08-14-2024 Anion gap [Moles/Vol] 10 mmol/L 3 - 13 mmol/L [facility] Calcium [Mass/Vol] 6.8 mg/dL Low 8.4 - 10. 4 mg/dL [facility] Chloride [Moles/Vol] 96 mmol/L Low 98 - 10 7 mmol/L [facility] CO2 [Moles/Vol] 25 mmol/L 22 - 30 mmol/L [facility] Creatinine [Mass/Vol] 1.91 mg/dL High 0.52 - 1.04 mg/dL [facility] GFR/1.73 sq M.predicted (S/P/Bld) [Vol rate/Area] 29 mL/min Low - PINF [facility] Glucose [Mass/Vol] 361 mg/dL High 70 - 100 mg/dL [facility] Interpretation and review of laboratory results Abnormal [facility] Potassium [Moles/Vol] 3.5 mmol/L 3.5 - 5.1 mmol/L [facility] Sodium [Moles/Vol] 130 mmol/L Low 135 - 145 mmol/L [facility] Urea nitrogen [Mass/Vol] 18 mg/dL High 7 - 17 mg/dL [facility] CBC W Auto Differential pane l (Bld)Ordered By: Wei Adamson on 08-14-2024 Basophils (Bld) [#/Vol] 0 10*3/uL 0.0 - 0.2 10*3/uL [facility] Basophils/100 WBC (Bld) 0.2 % 0.0 - 2.0 % [facility] Eosinophils (Bld) [#/Vol] 0 10*3/uL 0.0 - 0.5 10*3/uL [facility] Eosinophils/100 WBC (Bld) 0.2 % 0.0 - 6.0 % [facility] Erythrocyte distribution width (RBC) [Ratio] 16.4 % High 11.5 - 15.0 % [facility] Hematocrit (Bld) [Volume fraction] 28.7 % Low 35.0 - 47.0 % [facility] Hemoglobin (Bld) [Mass/Vol] 9.2 g/dL Low 11.7 - 16.0 g/dL [facility] Immature granulocytes (Bld) [#/Vol] 0 10*3/uL NINF - 0.1 10*3/uL [facility] Immature granulocytes/100 WBC (Bld) 0.6 % 0.0 - 2.0 % [facility] Interpretation and review of laboratory results Abnormal [facility] IPF 4 [facility] Lymphocytes (Bld) [#/Vol] 0.7 10*3/uL Low 1.0 - 4.3 10*3/uL [facility] Lymphocytes/100 WBC (Bld) 13.6 % Low 15.0 - 45.0 % [facility] MCH (RBC) [Entitic mass] 29.2 pg 26.0 - 34.0 pg [facility] MCHC (RBC) [Mass/Vol] 32.1 % 30.5 - 36.0 % [facility] MCV (RBC) [Entitic vol] 91.1 fL 77.0 - 99.0 fL [facility] Monocytes (Bld) [#/Vol] 0.4 10*3/uL 0.0 - 0.9 10*3/uL [facility] Monocytes/100 WBC (Bld) 8 % 5.0 - 13.0 % [facility] Neutrophils (Bld) [#/Vol] 4 10*3/uL 1.8 - 7.5 10*3/uL [facility] Neutrophils/100 WBC (Bld) 77.4 % 38.0 - 82.0 % [facility] Nucleated RBC/100 WBC (Bld) [Ratio] 0 % [facility] Platelet mean volume (Bld) [Entitic vol] 10.9 fL 9.0 - 12.7 fL [facility] Platelets (Bld) [#/Vol] 79 10*3/uL Low 140 - 440 10*3/uL [facility] RBC (Bld) [#/Vol] 3.15 10*6/uL Low 3.80 - 5.2 0 10*6/uL [facility] WBC (Bld) [#/Vol] 5.2 10*3/uL 3.6 - 10.7 10*3/uL [facility] CBC WITH AUTO DIFFERENTIALon 08-14-2024 Basophils (Bld) [#/Vol] 0.0 10*3/uL Normal 0.0-0.2 [facility] Comment on above: Performed By: #### L [id number] ####Typesetter Apprentice: MARY SOTELO ([phone])[facility])[address] [place] [address] Basophils/100 WBC (Bld) 0.2 % Normal 0.0-2.0 [facility] Comment on above: Performed By: #### L [id number] ####Typesetter Apprentice: MARY SOTELO ([phone])[facility])[address] [place] [address] Eosinophils (Bld) [#/Vol] 0.0 10*3/uL Normal 0.0-0.5 [facility] Comment on above: Performed By: #### L [id number] ####Typesetter Apprentice: MARY SOTELO ([phone])[facility])[address] [place] [address] Eosinophils/100 WBC (Bld) 0.2 % Normal 0.0-6.0 [facility] Comment on above: Performed By: #### L [id number] ####Typesetter Apprentice: MARY SOTELO ([phone])[facility])[address] [place] [address] Erythrocyte distribution width (RBC) [Ratio] 16.4 % High 11.5-15.0 [facility] Comment on above: Performed By: #### L [id number] ####Typesetter Apprentice: MARY SOTELO ([phone])[address] Hematocrit (Bld) [Volume fraction] 28.7 % Low 35.0-47.0 [facility] Comment on above: Performed By: #### L [id number] ####Typesetter Apprentice: MARY SOTELO ([phone])[facility])[address] [place] [address] Hemoglobin (Bld) [Mass/Vol] 9.2 g/dL Low 11.7-16.0 [facility] Comment on above: Performed By: #### L [id number] ####Typesetter Apprentice: MARY SOTELO ([phone])[address] IMMATURE GRANS % 0.6 % Normal 0.0-2.0 [facility] Comment on above: Performed By: #### L [id number] ####Typesetter Apprentice: MARY SOTELO ([phone])[address] IMMATURE GRANS ABSOLUTE 0.0 10*3/uL Normal <0.1 [facility] Comment on above: Performed By: #### L [id number] ####Typesetter Apprentice: MARY SOTELO ([phone])[address] IPF 4 Normal [facility] Comment on above: Performed By: #### L [id number] ####Typesetter Apprentice: MARY SOTELO ([phone])[address] Lymphocytes (Bld) [#/Vol] 0.7 10*3/uL Low 1.0-4.3 [facility] Comment on above: Performed By: #### L [id number] ####Typesetter Apprentice: MARY [phone])[facility])[address] [place] [address] Lymphocytes/100 WBC (Bld) 13.6 % Low 15.0-45.0 [facility] Comment on above: Performed By: #### L [id number] ####Typesetter Apprentice: MARY SOTELO ([phone])[facility])[address] [place] [address] MCH (RBC) [Entitic mass] 29.2 pg Normal 26.0-34.0 [facility] Comment on above: Performed By: #### L [id number] ####Typesetter Apprentice: MARY SOTELO ([phone])[facility])[address] [place] [address] MCHC 32.1 % Normal 30.5-36.0 [facility] Comment on above: Performed By: #### L [id number] ####Typesetter Apprentice: MARY SOTELO ([phone])[facility])[address] [place] [address] MCV (RBC) [Entitic vol] 91.1 fL Normal 77.0-99.0 [facility] Comment on above: Performed By: #### L [id number] ####Typesetter Apprentice: MARY SOTELO ([phone])[facility])[address] [place] [address] Monocytes (Bld) [#/Vol] 0.4 10*3/uL Normal 0.0-0.9 [facility] Comment on above: Performed By: #### L [id number] ####Typesetter Apprentice: MARY SOTELO ([phone])[facility])[address] [place] [address] Monocytes/100 WBC (Bld) 8.0 % Normal 5.0-13.0 [facility] Comment on above: Performed By: #### L [id number] ####Typesetter Apprentice: MARY SOTELO ([phone])[facility])[address] [place] [address] NEUTROPHILS ABSOLUTE 4.0 10*3/uL Normal 1.8-7.5 [facility] Comment on above: Performed By: #### L [id number] ####Typesetter Apprentice: MARY SOTELO ([phone])[facility] ([facility])[address] [place] [address] Neutrophils/100 WBC (Bld) 77.4 % Normal 38.0-82.0 [facility] Comment on above: Performed By: #### L [id number] ####Typesetter Apprentice: MARY SOTELO ([phone])[facility] ([facility])[address] [place] [address] NRBC 0.0 /100 WBCs Normal 0.0-2.0 [facility] Comment on above: Performed By: #### L [id number] ####Typesetter Apprentice: MARY SOTELO ([phone])[facility] ([facility])[address] [place] [address] Platelet mean volume (Bld) [Entitic vol] 10.9 fL Normal 9.0-12.7 [facility] Comment on above: Performed By: #### L [id number] ####Typesetter Apprentice: MARY SOTELO ([phone])[facility] ([facility])[address] [place] [address] Platelets (Bld) [#/Vol] 79 10*3/uL Low 140-440 [facility] Comment on above: Performed By: #### L [id number] ####Typesetter Apprentice: MARY SOTELO ([phone])[facility] ([facility])[address] [place] [address] [place] RBC (Bld) [#/Vol] 3.15 10*6/uL Low 3.80-5.20 [facility] Comment on above: Performed By: #### L [id number] ####Typesetter Apprentice: MARY SOTELO ([phone])[facility] ([facility])[address] [place] [address] WBC (Bld) [#/Vol] 5.2 10*3/uL Normal 3.6-10.7 [facility] Comment on above: Performed By: #### L [id number] ####Typesetter Apprentice: MARY SOTELO ([phone])[facility] ([facility])[address] [place] [address] [place] IDNon 08-14-2024 IDN Normal [facility] - Chemistry and C hemistry - challengeon 08-14-2024 Glucose [Mass/Vol] 248 mg/dL High 70 - 100 mg/dL [facility] Glucose [Mass/Vol] 233 mg/dL High 70 - 100 mg/dL [facility] Glucose [Mass/Vol] 294 mg/dL High 70 - 100 mg/dL [facility] Glucose [Mass/Vol] 356 mg/dL High 70 - 100 mg/dL [facility] Magnesium [Mass/Vol] 2.1 mg/dL 1.6 - 2 .3 mg/dL [facility] MAGNESIUMon 08-14-2024 Magnesium [Mass/Vol] 2.1 mg/dL Normal 1.6-2.3 [facility] Comment on above: Performed By: #### L AB113, [id number], LAB15 ####Typesetter Apprentice: MARY SOTLEO ([phone])[facility] ([facility])[address] [place] [address] No Panel Informationon 08-14 Interpretation and review of laboratory results Abnormal [facility] Interpretation and review of laboratory results Abnormal [facility] Interpretation and review of laboratory results Abnormal [facility] Interpretation and review of laboratory results Abnormal [facility] Interpretation and review of laboratory results Normal [facility] PHOSPHORUSon 08-14-2024 Phosphate [Mass/Vol] 2.9 mg/dL Normal 2.5-4.5 [facility] Comment on above: Performed By: #### L [id number], [id number], [id number] ####Typesetter Apprentice: MARY SOTELO ([phone])[facility] ([facility])[address] [place] [address] Phosphate [Moles/Vol]on 08-03 Phosphate [Mass/Vol] 2.9 mg/dL 2.5 - 4 .5 mg/dL [facility] Progress Noteon 08-14-2024 Progress Note Normal [facility] Progress Note Normal [facility] Progress Note Normal [facility] Progress Note Normal [facility] BASIC METABOLIC PANELon 08-03 Anion gap [Moles/Vol] 11 mmol/L Normal 3-13 [facility] Comment on above: Performed By: #### L [id number], [id number], [id number] ####Typesetter Apprentice: MARY SOTELO ([phone])[facility] ([facility])[address] [place] [address] Calcium [Mass/Vol] 7.1 mg/dL Low 8.4-10.4 [facility] Comment on above: Performed By: #### Dora AB15, [id number], [id number] ####Typesetter Apprentice: MARY SOTELO ([phone])[facility] ([facility])[address] [place] [address] Chloride [Moles/Vol] 103 mmol/L Normal 98-107 [facility] Comment on above: Performed By: #### Dora AB15, [id number], [id number] ####Typesetter Apprentice: MARY SOTELO ([phone])[facility] ([facility])[address] [place] [address] CO2 [Moles/Vol] 19 mmol/L Low 22-30 [facility] Comment on above: Performed By: #### L AB15, [id number], [id number] ####Typesetter Apprentice: MARY SOTLEO ([phone])[facility] ([facility])[address] [place] [address] Creatinine [Mass/Vol] 2.43 mg/dL High 0.52-1.04 [facility] Comment on above: Performed By: #### L AB15, [id number], [id number] ####Typesetter Apprentice: MARY SOTELO ([phone])[facility])[address] [place] [address] [place] GLOMERULAR FILTRATION RATE ML/MIN/1.73 SQ M.PREDICTED 21.7 mL/min/1.73m*2 Low >60.0 [facility] Comment on above: Result Comment: Calc ulation based on the Chronic Kidney Disease Epidemiology Collaboration (CKD-EPI) equation refit without adjustment for race Performed By: #### L AB15, [id number], [id number] ####Typesetter Apprentice: MARY SOTELO ([phone])[facility])[address] [place] [address] Glucose [Mass/Vol] 211 mg/dL High 70-100 [facility] Comment on above: Performed By: #### L AB15, [id number], [id number] ####Typesetter Apprentice: MARY SOTELO ([phone])[facility])[address] [place] [address] Potassium [Moles/Vol] 3.7 mmol/L Normal 3.5-5.1 [facility] Comment on above: Performed By: #### Dora AB15, [id number], [id number] ####Typesetter Apprentice: MARY SOTELO ([phone])[facility] ([facility])[address] [place] [address] Sodium [Moles/Vol] 134 mmol/L Low 135-145 [facility] Comment on above: Performed By: #### L AB15, [id number], [id number] ####Typesetter Apprentice: MARY SOTELO ([phone])[facility])[address] [place] [address] Urea nitrogen [Mass/Vol] 18 mg/dL High 7-17 [facility] Comment on above: Performed By: #### L AB15, [id number], [id number] ####Typesetter Apprentice: MARY SOTELO ([phone])[facility])[address] [place] [address] [place] BETA HYDROXYBUTYRATEon 08-13 BETA HYDROXYBUTYRATE 33.80 mg/dL High 0.20-2.81 [facility] Comment on above: Performed By: #### L AB89, [id number], [id number], [id number] ####Typesetter Apprentice: MARY SOTELO ([phone])[facility])[address] [place] [address] BLOOD GAS ARTERIALon 024 Base excess Calc (Bld) [Moles/Vol] -3.2000 mmol/L Low -3.0-3.0 [facility] Comment on above: Performed By: #### L AB76 ####Typesetter Apprentice: MARY SOTELO ([phone])[facility] ([facility])[address] [place] [address] CO2 [Moles/Vol] 24.8 mmol/L Normal 23.0-27.0 [facility] Comment on above: Performed By: #### L AB76 ####Typesetter Apprentice: MARY SOTELO ([phone])[facility] ([facility])[address] [place] [address] HCO3 (Bld) [Moles/Vol] 23.3 mmol/L Normal 21.0-25.0 [facility] Comment on above: Performed By: #### L AB76 ####Typesetter Apprentice: MARY SOTELO ([phone])[facility] ([facility])[address] [place] [address] Hemoglobin (Bld) [Mass/Vol] 8.3 g/dL Normal Screen only [facility] Comment on above: Performed By: #### L AB76 ####Typesetter Apprentice: MRAY SOTELO ([phone])[facility] ([facility])[address] [place] [address] OXYGEN SATURATION (%) IN ARTERIAL BLOOD 95.8 % Normal 95.0-100.0 [facility] Comment on above: Performed By: #### L AB76 ####Typesetter Apprentice: MARY SOTELO ([phone])[facility] ([facility])[address] [place] [address] [place] PCO2 ARTERIAL 49.4 mm Hg High >35.0-<45.0 [facility] Comment on above: Performed By: #### L AB76 ####Typesetter Apprentice: MARY SOTELO ([phone])[facility] ([facility])[address] [place] [address] PH ARTERIAL 7.291 Low 7.350-7.450 [facility] Comment on above: Performed By: #### L AB76 ####Typesetter Apprentice: MARY SOTELO ([phone])[facility] ([facility])[address] [place] [address] PO2 ARTERIAL 84.7 mm Hg Normal 80.0-100.0 [facility] Comment on above: Performed By: #### L AB76 ####Typesetter Apprentice: MARY SOTELO ([phone])[facility] ([facility])[address] [place] [address] SOURCE OF OXYGEN 30% Oxygen Normal [facility] Comment on above: Performed By: #### L AB76 ####Typesetter Apprentice: MARY SOTELO ([phone])[facility] ([facility])[address] [place] [address] CARECOORDon 08-13-2024 CARECOORD Normal [facility] CARECOORD Normal [facility] CBC W Auto Differential pane l (Bld)Ordered By: Elin Cline on 08-13-2024 Basophils (Bld) [#/Vol] 0 10*3/uL 0.0 - 0.2 10*3/uL [facility] Basophils/100 WBC (Bld) 0 % 0.0 - 2.0 % [facility] Eosinophils (Bld) [#/Vol] 0 10*3/uL 0.0 - 0.5 10*3/uL [facility] Eosinophils/100 WBC (Bld) 0 % 0.0 - 6.0 % [facility] Erythrocyte distribution width (RBC) [Ratio] 15.9 % High 11.5 - 15.0 % [facility] Hematocrit (Bld) [Volume fraction] 28.2 % Low 35.0 - 47.0 % [facility] Hemoglobin (Bld) [Mass/Vol] 9.2 g/dL Low 11.7 - 16.0 g/dL [facility] Immature granulocytes (Bld) [#/Vol] 0 10*3/uL NINF - 0.1 10*3/uL [facility] Immature granulocytes/100 WBC (Bld) 0.6 % 0.0 - 2.0 % [facility] Interpretation and review of laboratory results Abnormal [facility] IPF 3 [facility] Lymphocytes (Bld) [#/Vol] 0.3 10*3/uL Low 1.0 - 4.3 10*3/uL [facility] Lymphocytes/100 WBC (Bld) 9 % Low 15.0 - 45.0 % [facility] MCH (RBC) [Entitic mass] 29.4 pg 26.0 - 34.0 pg [facility] MCHC (RBC) [Mass/Vol] 32.6 % 30.5 - 36.0 % [facility] MCV (RBC) [Entitic vol] 90.1 fL 77.0 - 99.0 fL [facility] Monocytes (Bld) [#/Vol] 0.1 10*3/uL 0.0 - 0.9 10*3/uL [facility] Monocytes/100 WBC (Bld) 3.8 % Low 5.0 - 13.0 % [facility] Neutrophils (Bld) [#/Vol] 2.7 10*3/uL 1.8 - 7.5 10*3/uL [facility] Neutrophils/100 WBC (Bld) 86.6 % High 38.0 - 82.0 % [facility] Nucleated RBC/100 WBC (Bld) [Ratio] 0 % [facility] [employer] Platelet mean volume (Bld) [Entitic vol] 10.5 fL 9.0 - 12.7 fL [facility] Platelets (Bld) [#/Vol] 78 10*3/uL Low 140 - 440 10*3/uL [facility] RBC (Bld) [#/Vol] 3.13 10*6/uL Low 3.80 - 5.2 0 10*6/uL [facility] WBC (Bld) [#/Vol] 3.1 10*3/uL Low 3.6 - 10.7 10*3/uL [facility] CBC WITH AUTO DIFFERENTIALon 08-13-2024 Basophils (Bld) [#/Vol] 0.0 10*3/uL Normal 0.0-0.2 [facility] Comment on above: Performed By: #### L [id number] ####Typesetter Apprentice: MARY SOTELO ([phone])[facility] ([address] Basophils/100 WBC (Bld) 0.0 % Normal 0.0-2.0 [facility] Comment on above: Performed By: #### L [id number] ####Typesetter Apprentice: MARY SOTELO ([phone])[facility])[address] [place] [address] Eosinophils (Bld) [#/Vol] 0.0 10*3/uL Normal 0.0-0.5 [facility] Comment on above: Performed By: #### L [id number] ####Typesetter Apprentice: MARY SOTELO ([phone])[facility])[address] [place] [address] Eosinophils/100 WBC (Bld) 0.0 % Normal 0.0-6.0 [facility] Comment on above: Performed By: #### L [id number] ####Typesetter Apprentice: MARY SOTELO ([phone])[address] Erythrocyte distribution width (RBC) [Ratio] 15.9 % High 11.5-15.0 [facility] Comment on above: Performed By: #### L [id number] ####Typesetter Apprentice: MARY SOTELO ([phone])[facility])[address] [place] [address] Hematocrit (Bld) [Volume fraction] 28.2 % Low 35.0-47.0 [facility] Comment on above: Performed By: #### L [id number] ####Typesetter Apprentice: MARY SOTELO ([phone])[facility])[address] [place] [address] Hemoglobin (Bld) [Mass/Vol] 9.2 g/dL Low 11.7-16.0 [facility] Comment on above: Performed By: #### L [id number] ####Typesetter Apprentice: MARY SOTELO ([phone])[facility])[address] [place] [address] IMMATURE GRANS % 0.6 % Normal 0.0-2.0 [facility] Comment on above: Performed By: #### L [id number] ####Typesetter Apprentice: MARY SOTELO ([phone])[facility] ([facility])[address] [place] [address] IMMATURE GRANS ABSOLUTE 0.0 10*3/uL Normal <0.1 [facility] Comment on above: Performed By: #### L [id number] ####Typesetter Apprentice: MARY SOTELO ([phone])[facility])[address] [place] [address] IPF 3 Normal [facility] Comment on above: Performed By: #### L [id number] ####Typesetter Apprentice: MARY SOTELO ([phone])[facility])[address] [place] [address] Lymphocytes (Bld) [#/Vol] 0.3 10*3/uL Low 1.0-4.3 [facility] Comment on above: Performed By: #### L [id number] ####Typesetter Apprentice: MARY SOTELO ([phone])[facility])[address] [place] [address] Lymphocytes/100 WBC (Bld) 9.0 % Low 15.0-45.0 [facility] Comment on above: Performed By: #### L [id number] ####Typesetter Apprentice: MARY SOTELO ([phone])[facility])[address] [place] [address] MCH (RBC) [Entitic mass] 29.4 pg Normal 26.0-34.0 [facility] Comment on above: Performed By: #### L [id number] ####Typesetter Apprentice: MARY SOTELO ([phone])[facility])[address] [place] [address] MCHC 32.6 % Normal 30.5-36.0 [facility] Comment on above: Performed By: #### L [id number] ####Typesetter Apprentice: MARY SOTELO ([phone])[facility])[address] [place] [address] MCV (RBC) [Entitic vol] 90.1 fL Normal 77.0-99.0 [facility] Comment on above: Performed By: #### L [id number] ####Typesetter Apprentice: MARY SOTELO ([phone])[facility])[address] [place] [address] Monocytes (Bld) [#/Vol] 0.1 10*3/uL Normal 0.0-0.9 [facility] Comment on above: Performed By: #### L [id number] ####Typesetter Apprentice: MARY SOTELO ([phone])[facility] ([facility])[address] [place] [address] Monocytes/100 WBC (Bld) 3.8 % Low 5.0-13.0 [facility] Comment on above: Performed By: #### L [id number] ####Typesetter Apprentice: MARY SOTELO ([phone])[facility])[address] [place] [address] NEUTROPHILS ABSOLUTE 2.7 10*3/uL Normal 1.8-7.5 [facility] Comment on above: Performed By: #### L [id number] ####Typesetter Apprentice: MARY SOTELO ([phone])[facility])[address] [place] [address] Neutrophils/100 WBC (Bld) 86.6 % High 38.0-82.0 [facility] Comment on above: Performed By: #### L [id number] ####Typesetter Apprentice: MARY SOTELO ([phone])[facility])[address] [place] [address] NRBC 0.0 /100 WBCs Normal 0.0-2.0 [facility] Comment on above: Performed By: #### L [id number] ####Typesetter Apprentice: MARY SOTELO ([phone])[facility])[address] [place] [address] Platelet mean volume (Bld) [Entitic vol] 10.5 fL Normal 9.0-12.7 [facility] Comment on above: Performed By: #### L [id number] ####Typesetter Apprentice: MARY SOTELO ([phone])[facility])[address] [place] [address] Platelets (Bld) [#/Vol] 78 10*3/uL Low 140-440 [facility] Comment on above: Performed By: #### L [id number] ####Typesetter Apprentice: MARY SOTELO ([phone])[facility])[address] [place] [address] RBC (Bld) [#/Vol] 3.13 10*6/uL Low 3.80-5.20 [facility] Comment on above: Performed By: #### L [id number] ####Typesetter Apprentice: MARY SOTELO ([phone])[facility])[address] [place] [address] WBC (Bld) [#/Vol] 3.1 10*3/uL Low 3.6-10.7 [facility] Comment on above: Performed By: #### L [id number] ####Typesetter Apprentice: MARY SOTELO ([phone])[facility])[address] [place] [address] Erythrocyte distribution width (RBC) [Ratio] 16.1 % High 11.5-15.0 [facility] Comment on above: Performed By: #### L [id number], [id number] ####Typesetter Apprentice: MARY SOTELO ([phone])[facility])[address] [place] [address] Hematocrit (Bld) [Volume fraction] 21.0 % Low 35.0-47.0 [facility] Comment on above: Performed By: #### L [id number], [id number] ####Typesetter Apprentice: MARY SOTELO ([phone])[facility])[address] [place] [address] Hemoglobin (Bld) [Mass/Vol] 6.7 g/dL Critically low 11.7-16.0 [facility] Comment on above: Performed By: #### L [id number], [id number] ####Typesetter Apprentice: MARY SOTELO ([phone])[facility] ([facility])[address] [place] [address] IPF 3 Normal [facility] Comment on above: Performed By: #### L [id number], [id number] ####Typesetter Apprentice: MARY SOTELO ([phone])[facility] ([facility])[address] [place] [address] MCH (RBC) [Entitic mass] 29.8 pg Normal 26.0-34.0 [facility] Comment on above: Performed By: #### Dora [id number], [id number] ####Typesetter Apprentice: MARY SOTELO ([phone])[facility])[address] [place] [address] MCHC 31.9 % Normal 30.5-36.0 [facility] Comment on above: Performed By: #### Dora [id number], [id number] ####Typesetter Apprentice: MARY SOTELO ([phone])[facility] ([facility])[address] [place] [address] MCV (RBC) [Entitic vol] 93.3 fL Normal 77.0-99.0 [facility] Comment on above: Performed By: #### Dora [id number], [id number] ####Typesetter Apprentice: MARY SOTELO ([phone])[facility] ([facility])[address] [place] [address] Platelet mean volume (Bld) [Entitic vol] 11.1 fL Normal 9.0-12.7 [facility] Comment on above: Performed By: #### L [id number], [id number] ####Typesetter Apprentice: MARY SOTELO ([phone])[facility])[address] [place] [address] Platelets (Bld) [#/Vol] 65 10*3/uL Low 140-440 [facility] Comment on above: Performed By: #### L [id number], [id number] ####Typesetter Apprentice: MARY SOTELO ([phone])[facility] [place] [address] RBC (Bld) [#/Vol] 2.25 10*6/uL Low 3.80-5.20 [facility] Comment on above: Performed By: #### L [id number], [id number] ####Typesetter Apprentice: MARY SOTELO ([phone])[facility])[address] [place] [address] WBC (Bld) [#/Vol] 2.5 10*3/uL Low 3.6-10.7 [facility] Comment on above: Performed By: #### L [id number], [id number] ####Typesetter Apprentice: MARY SOTELO ([phone])[facility] ([facility])[address] [place] [address] COMPLETE URINALYSISon 2023 BACTERIA (#/HPF) IN URINE Few Abnormal Negative [facility] Comment on above: Performed By: #### L [id number] ####Typesetter Apprentice: MARY SOTELO ([phone])[facility] ([facility])[address] [place] [address] BILIRUBIN, TOTAL PRESENCE IN URINE Negative Normal Negative [facility] Comment on above: Performed By: #### L [id number] ####Typesetter Apprentice: MARY SOTELO ([phone])[facility] ([facility])[address] [place] [address] Clarity (U) Extra Turbid Abnormal Clear [facility] Comment on above: Performed By: #### L [id number] ####Typesetter Apprentice: MARY SOTELO ([phone])[facility] ([facility])[address] [place] [address] Color (U) Yellow Normal Lt. Yellow [facility] Comment on above: Performed By: #### L [id number] ####Typesetter Apprentice: MARY SOTELO ([phone])[facility] ([facility])[address] [place] [address] GLUCOSE (MG/DL) IN URINE Normal Normal Normal (<70) [facility] Comment on above: Performed By: #### L [id number] ####Typesetter Apprentice: MARY SOTELO ([phone])[facility] ([facility])[address] [place] [address] HEMOGLOBIN PRESENCE IN URINE 0.2 mg/dL Abnormal Negative [facility] Comment on above: Performed By: #### L [id number] ####Typesetter Apprentice: MARY SOTELO ([phone])[facility] ([facility])[address] [place] [address] Ketones Ql (U) Trace Abnormal Negative [facility] Comment on above: Performed By: #### L [id number] ####Typesetter Apprentice: MARY SOTELO ([phone])[facility] ([facility])[address] [place] [address] LEUKOCYTE ESTERASE PRESENCE IN URINE BY TEST STRIP 500 Bere/uL Abnormal Negative [facility] Comment on above: Performed By: #### L [id number] ####Typesetter Apprentice: MARY SOTELO ([phone])[facility] ([facility])[address] [place] [address] [place] MUCUS (#/LPF) IN URINE SEDIMENT Few Normal Negative [facility] Comment on above: Performed By: #### L [id number] ####Typesetter Apprentice: MARY SOTELO ([phone])[facility] ([facility])[address] [place] [address] NITRITE PRESENCE IN URINE Negative Normal Negative [facility] Comment on above: Performed By: #### L [id number] ####Typesetter Apprentice: MARY SOTELO ([phone])[facility] ([facility])[address] [place] [address] NON-SQUAMOUS EPITHELIAL (#/HPF) IN URINE 0-2 Abnormal Negative [facility] Comment on above: Performed By: #### L [id number] ####Typesetter Apprentice: MARY SOTELO ([phone])[facility] ([facility])[address] [place] [address] pH (U) 5.5 [pH] Normal 5.0-8.0 [facility] Comment on above: Performed By: #### L [id number] ####Typesetter Apprentice: MARY SOTELO ([phone])[facility] ([facility])[address] [place] [address] Protein (U) [Mass/Vol] 100 mg/dL Abnormal Negative [facility] Comment on above: Performed By: #### L [id number] ####Typesetter Apprentice: MARY SOTELO ([phone])[facility] ([facility])[address] [place] [address] RBC (#/HPF) IN URINE SEDIMENT 11-25 Abnormal 0-2 [facility] Comment on above: Performed By: #### L [id number] ####Typesetter Apprentice: MARY SOTELO ([phone])[facility])[address] [place] [address] Specific gravity (U) [Rel density] 1.021 Normal 1.005-1.030 [facility] Comment on above: Performed By: #### L [id number] ####Typesetter Apprentice: MARY SOTELO ([phone])[facility] ([facility])[address] [place] [address] SQUAMOUS EPITHELIAL CELLS (#/HPF) IN URINE SEDIMENT 0-2 Normal 3-5 [facility] Comment on above: Performed By: #### L [id number] ####Typesetter Apprentice: MARY SOTELO ([phone])[facility] ([facility])[address] [place] [address] UROBILINOGEN (MG/DL) IN URINE Normal Normal Normal (0-1) [facility] Comment on above: Performed By: #### L [id number] ####Typesetter Apprentice: MARY SOTELO ([phone])[facility] ([facility])[address] [place] [address] WBC (LEUKOCYTE) (#/HPF) IN URINE SEDIMENT >100 Abnormal 0-5 [facility] Comment on above: Performed By: #### L [id number] ####Typesetter Apprentice: MARY SOTELO ([phone])[facility])[address] [place] [address] WBC (LEUKOCYTE) CLUMPS (#/HPF) IN URINE SEDIMENT Occasional Abnormal Negative [facility] Comment on above: Performed By: #### L [id number] ####Typesetter Apprentice: MARY SOTELO ([phone])[facility])[address] [place] [address] YEAST (#/HPF) IN URINE Many Abnormal Negative [facility] Comment on above: Performed By: #### L [id number] ####Typesetter Apprentice: MARY SOTELO ([phone])[facility])[address] [place] [address] Consulton 08-13-2024 Consult Normal [facility] Consult Normal [facility] Consult Normal [facility] HAPTOGLOBINon 08-13-2024 HAPTOGLOBIN 44.2 mg/dL Normal 30.0-200.0 [facility] Comment on above: Performed By: #### L AB89, [id number], [id number], [id number] ####Typesetter Apprentice: MARY SOTELO ([phone])[facility])[address] [place] [address] HEMOGLOBIN AND HEMATOCRIT, B LOODon 08-13-2024 Hematocrit (Bld) [Volume fraction] 28.3 % Low 35.0-47.0 [facility] Comment on above: Order Comment: Recom mend 1 hour post transfusion Performed By: #### L [id number] ####Typesetter Apprentice: MARY SOTELO ([phone])[facility])[address] [place] [address] Hemoglobin (Bld) [Mass/Vol] 9.2 g/dL Low 11.7-16.0 [facility] Comment on above: Order Comment: Recom mend 1 hour post transfusion Performed By: #### L [id number] ####Typesetter Apprentice: MARY SOTELO ([phone])[facility])[address] [place] [address] Hematocrit (Bld) [Volume fraction] 27.5 % Low 35.0-47.0 [facility] Comment on above: Order Comment: Recom mend 1 hour post transfusion Performed By: #### L [id number] ####Typesetter Apprentice: MARY SOTELO ([phone])[facility] ([facility])[address] [place] [address] Hemoglobin (Bld) [Mass/Vol] 8.7 g/dL Low 11.7-16.0 [facility] Comment on above: Order Comment: Recom mend 1 hour post transfusion Performed By: #### L [id number] ####Typesetter Apprentice: MARY SOTELO ([phone])[facility] [place] [address] HEPARIN-INDUCED PLATELET AB, REFL JONO UNFRAC HEP ([facility])on 08-13-2024 [facility] HEPARIN INDUCED PLATELET ANTIBODY Negative Normal Negative [facility] Comment on above: Result Comment: This [...] Thromb Haemost 2008;6:1304-12). Performed By: #### L [id number] ####[facility] (AMDBEAKER)[id number] [place], [place] [facility] QUEST PATIENT O.D. 0.052 Normal [facility] Comment on above: Result Comment: ____ ! O.D.units ! Result !! ! !! <=0.300 ! Negative !! >0.300 to <=0.500 ! Weak Positive !! >0.500 ! Positive !! ! !For additional information, please refer [email or web address](This link is being provided for informational/educational purposes only.)Test Performed by [employer],[address] [place] [id number] Wells M.D., Ph.D., Director of [phone], CLIA [id number] Performed By: #### L [id number] ####[employer] (AMDBEAKER)39515 [place], [place] Hemoglobin (Bld) [Mass/Vol]O rdered By: Laurel Alva on 08-13-2024 Hematocrit (Bld) [Volume fraction] 28.3 % Low 35.0 - 47.0 % [facility] Interpretation and review of laboratory results Abnormal [facility] LACTATE DEHYDROGENASEon 08-03 LDH [Catalytic activity/Vol] 184 U/L Normal 120-246 [facility] Comment on above: Performed By: #### L [id number], [id number], [id number], [id number] ####Typesetter Apprentice: MARY SOTELO ([phone])[address] LACTIC ACID WITH REFLEXon Lactate [Moles/Vol] mmol/L Low 0.7-2.0 [facility] Comment on above: Performed By: #### L [id number] ####Typesetter Apprentice: MARY SOTELO ([phone])[facility])[address] [place] [address] Laboratory - Chemistry and C hemistry - challengeon 08-13-2024 Glucose [Mass/Vol] 310 mg/dL High 70 - 100 mg/dL [facility] Glucose [Mass/Vol] 259 mg/dL High 70 - 100 mg/dL [facility] Glucose [Mass/Vol] 176 mg/dL High 70 - 100 mg/dL [facility] Troponin I.cardiac [Mass/Vol] 0.074 ng/mL High NINF - 0.034 ng/mL [facility] Glucose [Mass/Vol] 307 mg/dL High 70 - 100 mg/dL [facility] Troponin I.cardiac [Mass/Vol] 0.07 ng/mL High NINF - 0.034 ng/mL [facility] Troponin I.cardiac [Mass/Vol] 0.065 ng/mL High NINF - 0.034 ng/mL [facility] Glucose [Mass/Vol] 259 mg/dL High 70 - 100 mg/dL [facility] Troponin I.cardiac [Mass/Vol] 0.073 ng/mL High NINF - 0.034 ng/mL [facility] Lactate [Moles/Vol] mmol/L Low 0.7 - 2. 0 mmol/L [facility] Base excess Calc (Bld) [Moles/Vol] -3.2000 mmol/L Low -3.0 - 3.0 mmol/L [facility] CO2 (Bld) [Partial pressure] 49.4 mm[Hg] High - PINF [facility] CO2 [Moles/Vol] 24.8 mmol/L 23.0 - 27.0 mmol/L [facility] HCO3 (Bld) [Moles/Vol] 23.3 mmol/L 21.0 - 25.0 mmol/L [facility] Oxygen (Bld) [Partial pressure] 84.7 mm[Hg] [facility] pH (Bld) 7.291 [pH] Low 7.350 - 7.450 [facility] Beta hydroxybutyrate [Mass/Vol] 33.8 mg/dL High 0.20 - 2.81 mg/dL [facility] Laboratory - Hematology and Cell countson 08-13-2024 Haptoglobin [Mass/Vol] 44.2 mg/dL 30.0 - 200.0 mg/dL [facility] Hemoglobin (Bld) [Mass/Vol] 8.3 g/dL Screen only [facility] Anisocytosis Ql (Bld) Slight Abnormal (none) [facility] Band form neutrophils (Bld) [#/Vol] 0.1 10*3/uL High NINF - 0.0 10*3/uL [facility] Band form neutrophils/100 WBC (Bld) 2 % High NINF - 0 % [facility] Basophilic stippling LM Ql (Bld) Slight Abnormal (none) [facility] Lymphocytes (Bld) [#/Vol] 0.2 10*3/uL Low 1.0 - 4.3 10*3/uL [facility] Lymphocytes/100 WBC (Bld) 7 % Low 15 - 45 % [facility] Microcytes Ql (Bld) Slight Abnormal (none) [facility] Monocytes (Bld) [#/Vol] 0 10*3/uL 0.0 - 0.9 10*3/uL [facility] Monocytes/100 WBC (Bld) 0 % Low 5 - 13 % [facility] Neutrophils (Bld) [#/Vol] 2.3 10*3/uL 1.8 - 7.5 10*3/uL [facility] Polychromasia LM Ql (Bld) Slight Abnormal (none) [facility] RBC morphology finding Nom (Bld) abnormal [facility] Segmented neutrophils/100 WBC (Bld) 91 % High 38 - 82 % [facility] Laboratory - Hematology and Cell countsOrdered By: Laurel lAva on 08-13-2024 Hemoglobin (Bld) [Mass/Vol] 9.2 g/dL Low 11.7 - 16.0 g/dL [facility] MAGNESIUMon 08-13-2024 Magnesium [Mass/Vol] 1.5 mg/dL Low 1.6-2.3 [facility] Comment on above: Performed By: #### L [id number], [id number], [id number] ####Typesetter Apprentice: MARY SOTELO ([phone])[address] MANUAL DIFFERENTIAL (CELLAVI ESPINOZA)on 08-13-2024 ANISOCYTOSIS PRESENCE IN BLOOD BY LIGHT MICROSCOPY Slight Abnormal (none) [facility] Comment on above: Performed By: #### L [id number], [id number] ####Typesetter Apprentice: MARY SOTELO ([phone])[facility])[address] [place] [address] BAND NEUTROPHILS TOTAL PER COUNTED LEUKOCYTES BY MANUAL COUNT 2 Normal [facility] Comment on above: Performed By: #### L [id number], [id number] ####Typesetter Apprentice: MARY SOTELO ([phone])[facility])[address] [place] [address] [place] BANDS (10*3/UL) IN BLOOD-CELLAVISION 0.1 10*3/uL High <=0.0 [facility] Comment on above: Performed By: #### L [id number], [id number] ####Typesetter Apprentice: MARY SOTELO ([phone])[facility] [place] [address] BASOPHILIC STIPPLING PRESENCE IN BLOOD BY LIGHT MICROSCOPY Slight Abnormal (none) [facility] Comment on above: Performed By: #### L [id number], [id number] ####Typesetter Apprentice: MARY SOTELO ([phone])[facility] ([facility])[address] [place] [address] BASOPHILS TOTAL PER COUNTED LEUKOCYTES BY MANUAL COUNT Normal [facility] Comment on above: Performed By: #### Dora [id number], [id number] ####Typesetter Apprentice: MARY SOTELO ([phone])[facility])[address] [place] [address] BLASTS TOTAL PER COUNTED LEUKOCYTES BY MANUAL COUNT Normal [facility] Comment on above: Performed By: #### L [id number], [id number] ####Typesetter Apprentice: MARY SOTELO ([phone])[facility])[address] [place] [address] EOSINOPHILS TOTAL PER COUNTED LEUKOCYTES BY MANUAL COUNT Normal [facility] Comment on above: Performed By: #### L [id number], [id number] ####Typesetter Apprentice: MARY SOTELO ([phone])[facility])[address] [place] [address] [place] LYMPHOCYTES (10*3/UL) IN BLOOD-CELLAVISION 0.2 10*3/uL Low 1.0-4.3 [facility] Comment on above: Performed By: #### L [id number], [id number] ####Typesetter Apprentice: MARY SOTELO ([phone])[facility])[address] [place] [address] [place] LYMPHOCYTES TOTAL PER COUNTED LEUKOCYTES BY MANUAL COUNT 7 Normal [facility] Comment on above: Performed By: #### L [id number], [id number] ####Typesetter Apprentice: MARY SOTELO ([phone])[facility] ([facility])[address] [place] [address] [place] LYMPHOCYTES/100 LEUKOCYTES IN BLOOD-CELLAVISION 7 % Low 15-45 [facility] Comment on above: Performed By: #### L [id number], [id number] ####Typesetter Apprentice: MARY SOTELO ([phone])[facility])[address] [place] [address] [place] METAMYELOCYTES TOTAL PER COUNTED LEUKOCYTES BY MANUAL COUNT Normal [facility] Comment on above: Performed By: #### L [id number], [id number] ####Typesetter Apprentice: MARY SOTELO ([phone])[facility] ([facility])[address] [place] [address] MICROCYTES (PRESENCE) IN BLOOD BY LIGHT MICROSCOPY Slight Abnormal (none) [facility] Comment on above: Performed By: #### L [id number], [id number] ####Typesetter Apprentice: MARY SOTELO ([phone])[facility])[address] [place] [address] [place] MONOCYTES (10*3/UL) IN BLOOD-CELLAVISION 0.0 10*3/uL Normal 0.0-0.9 [facility] Comment on above: Performed By: #### L [id number], [id number] ####Typesetter Apprentice: MARY SOTELO ([phone])[facility])[address] [place] [address] [place] MONOCYTES TOTAL PER COUNTED LEUKOCYTES BY MANUAL COUNT 0 Normal [facility] Comment on above: Performed By: #### L [id number], [id number] ####Typesetter Apprentice: MARY SOTELO ([phone])[facility])[address] [place] [address] [place] MONOCYTES/100 LEUKOCYTES IN BLOOD-KACEY 0 % Low 5-13 [facility] Comment on above: Performed By: #### L [id number], [id number] ####Typesetter Apprentice: MARY SOTELO ([phone])[facility] ([facility])[address] [place] [address] [place] MYELOCYTES COUNTED BY MANUAL COUNT Normal [facility] Comment on above: Performed By: #### L [id number], [id number] ####Typesetter Apprentice: MARY SOTELO ([phone])[facility] ([facility])[address] [place] [address] [place] NEUTROPHILS BAND FORM/100 LEUKOCYTES IN BLOOD-CELLAVISI 2 % High <=0 [facility] Comment on above: Performed By: #### L [id number], [id number] ####Typesetter Apprentice: MARY SOTELO ([phone])[facility] ([facility])[address] [place] [address] NEUTROPHILS TOTAL PER COUNTED LEUKOCYTES BY MANUAL COUNT 90 Normal [facility] Comment on above: Performed By: #### L [id number], [id number] ####Typesetter Apprentice: MARY SOTELO ([phone])[facility])[address] [place] [address] POLYCHROMASIA IN BLOOD BY LIGHT MICROSCOPY Slight Abnormal (none) [facility] Comment on above: Performed By: #### L [id number], [id number] ####Typesetter Apprentice: MARY SOTELO ([phone])[facility] ([facility])[address] [place] [address] PROMYELOCYTES TOTAL PER COUNTED LEUKOCYTES BY MANUAL COUNT Normal [facility] Comment on above: Performed By: #### L [id number], [id number] ####Typesetter Apprentice: MARY SOTELO ([phone])[facility] ([facility])[address] [place] [address] [place] RBC MORPHOLOGY IN BLOOD abnormal Normal [facility] Comment on above: Performed By: #### L [id number], [id number] ####Typesetter Apprentice: MARY SOTELO ([phone])[facility])[address] [place] [address] [place] SEGMENTED NEUTROPHILS (10*3/UL) IN BLOOD-CELLAVISION 2.3 10*3/uL Normal 1.8-7.5 [facility] Comment on above: Performed By: #### L [id number], [id number] ####Typesetter Apprentice: MARY SOTELO ([phone])[facility] ([facility])[address] [place] [address] SEGMENTED NEUTROPHILS/100 LEUKOCYTES-CE 91 % High 38-82 [facility] Comment on above: Performed By: #### L [id number], [id number] ####Typesetter Apprentice: MARY SOTELO ([phone])[facility] ([facility])[address] [place] [address] UNCLASSIFIED CELLS TOTAL PER COUNTED LEUKOCYTES BY MANUAL COUNT [facility] Comment on above: Performed By: #### L [id number], [id number] ####Typesetter Apprentice: MARY SOTELO ([phone])[facility] ([facility])[address] [place] [address] VARIANT LYMPHOCYTES TOTAL PER COUNTED LEUKOCYTES BY MANUAL COUNT Normal [facility] Comment on above: Performed By: #### L [id number], [id number] ####Typesetter Apprentice: MARY SOTELO ([phone])[facility])[address] [place] [address] No Panel Informationon 08-13 Interpretation and review of laboratory results Abnormal [facility] Interpretation and review of laboratory results Abnormal [facility] Interpretation and review of laboratory results Abnormal [facility] Interpretation and review of laboratory results Abnormal [facility] Interpretation and review of laboratory results Normal [facility] Interpretation and review of laboratory results Abnormal [facility] Interpretation and review of laboratory results Abnormal [facility] Interpretation and review of laboratory results Abnormal [facility] Source Of Oxygen 30% Oxygen [facility] Interpretation and review of laboratory results Abnormal [facility] Bands Manual 2 [facility] Lymphocytes Manual 7 [facility] Monocytes Manual 0 [facility] alth Neutrophils Manual 90 [facility] No Panel InformationOrdered By: Tanisha Main on 08-13-2024 Interpretation and review of laboratory results Abnormal [facility] mecA/C (MRSE/MRSL) Detected Abnormal Not Detected [facility] Staphylococcus epidermidis Detected Abnormal Not Detected [facility] Nursing Noteon 08-13-2024 Nursing Note Normal [facility] PHOSPHORUSon 08-13-2024 Phosphate [Mass/Vol] 3.0 mg/dL Normal 2.5-4.5 [facility] Comment on above: Performed By: #### L AB15, [id number], [id number] ####Typesetter Apprentice: MARY SOTELO ([phone])[facility])[address] [place] [address] PROTIME AND APTTon aPTT Coag (Bld) [Time] 29.6 s Normal 20.0-30.5 [facility] Comment on above: Performed By: #### L [id number] ####Typesetter Apprentice: MARY SOTELO ([phone])[facility] ([facility])[address] [place] [address] INR Coag (PPP) [Relative time] 1.0 {INR} Normal 0.9-1.1 [facility] Comment on above: Result Comment: Elias [...] prevent Myocardial Infarction Performed By: #### L [id number] ####Typesetter Apprentice: MARY SOTELO ([phone])[facility] ([facility])[address] [place] [address] PT Coag (PPP) [Time] 11.6 s Normal 9.0-12.0 [facility] Comment on above: Performed By: #### L [id number] ####Typesetter Apprentice: MARY SOTELO ([phone])[facility] [address] Progress Noteon 08-13-2024 Progress Note Chart reviewed, as I was notified via Epic of patient[facility] ([facility] with altered mental status. Closing patient's transitional program at this time d/t her readmission. Normal [facility] Progress Note Normal [facility] Progress Note Normal [facility] RESPIRATORY PATHOGENS PANEL BY PCRon 08-13-2024 RESPIRATORY PATHOGENS PANEL BY PCR Normal [facility] Comment on above: Performed By: #### L [id number] ####Typesetter Apprentice: MARY SOTELO ([phone])[facility] ([facility])[address] [place] [address] Respiratory pathogens DNA an d RNA panel MARISA+non-probe (Nph)on 08-13-2024 Adenovirus Not detected Not Detected [facility] B. pertussis DNA MARISA+probe Ql (Unsp spec) Not detected Not Detected [facility] Bordetella parapertussis Not detected Not Detected [facility] Chlamydia pneumoniae Not detected Not Detected [facility] Coronavirus 229E Not detected Not Detected [facility] Coronavirus HKU1 Not detected Not Detected [facility] Coronavirus NL63 Not detected Not Detected [facility] Coronavirus OC43 Not detected Not Detected [facility] FLUAV RNA MARISA+non-probe Ql (Nph) Not detected Not Detected [facility] FLUBV RNA MARISA+non-probe Ql (Nph) Not detected Not Detected [facility] Human Metapneumovirus Not detected Not Detected [facility] Human Rhinovirus/Enterovirus Not detected Not Detected [facility] Interpretation and review of laboratory results Normal [facility] Mycoplasma pneumoniae Not detected Not Detected [facility] Parainfluenza 1 Not detected Not Detected [facility] Parainfluenza 2 Not detected Not Detected [facility] Parainfluenza 3 Not detected Not Detected [facility] Parainfluenza 4 Not detected Not Detected [facility] Respiratory Syncytial Virus Not detected Not Detected [facility] SARS-CoV-2 (COVID-19) RNA MARISA+non-probe Ql (Nph) Not detected Not Detected [facility] TROPONIN Ion 08-13-2024 Troponin I.cardiac [Mass/Vol] 0.074 ng/mL High <0.034 [facility] Comment on above: Result Comment: ORDE R COMMENTS:Patients with high levels of Biotin oral intake (ie >5 mg/day) may have falsely decreased Troponin levels. Performed By: #### L [id number] ####Typesetter Apprentice: MARY SOTELO ([phone])[facility])[address] [place] [address] [place] Troponin I.cardiac [Mass/Vol] 0.070 ng/mL High <0.034 [facility] Comment on above: Result Comment: ORDE R COMMENTS:Patients with high levels of Biotin oral intake (ie >5 mg/day) may have falsely decreased Troponin levels. Performed By: #### L [id number] ####Typesetter Apprentice: MARY SOTELO ([phone])[address] Troponin I.cardiac [Mass/Vol] 0.073 ng/mL High <0.034 [facility] Comment on above: Result Comment: ORDE R COMMENTS:Patients with high levels of Biotin oral intake (ie >5 mg/day) may have falsely decreased Troponin levels. Performed By: #### L [id number] ####Typesetter Apprentice: MARY SOTELO ([phone])[address] TROPONIN, WITH SERIAL REFLEX on 08-13-2024 Troponin I.cardiac [Mass/Vol] 0.065 ng/mL High <0.034 [facility] Comment on above: Result Comment: ORDMari R COMMENTS:Patients with high levels of Biotin oral intake (ie >5 mg/day) may have falsely decreased Troponin levels. Performed By: #### L AB89, [id number], [id number], [id number] ####Typesetter Apprentice: MARY SOTELO ([phone])[facility])[address] [place] [address] [place] Troponin I.cardiac [Mass/Vol ]on 08-13-2024 Interpretation and review of laboratory results Abnormal [facility] Interpretation and review of laboratory results Abnormal [facility] Interpretation and review of laboratory results Abnormal [facility] Interpretation and review of laboratory results Abnormal [facility] URINE CULTUREon 08-13-2024 Bacteria identified Cx Nom (U) Normal [facility] Comment on above: Performed By: #### L [id number] ####Typesetter Apprentice: MARY SOTELO ([phone])[facility] [place] [address] Urinalysis complete panel (U )on 08-13-2024 Bacteria LM.HPF (Urine sed) [#/Area] Few Abnormal Negative /HPF [facility] Bilirubin Ql (U) Negative Negative mg/dL [facility] Clarity (U) Extra Turbid Abnormal Clear [facility] Color (U) Yellow Lt. Yellow [facility] Epithelial cells.squamous LM.HPF (Urine sed) [#/Area] 0-2 [facility] h Glucose Ql (U) Normal Normal (<70) mg/dL [facility] Hemoglobin Ql (U) 0.2 mg/dL Abnormal Negative [facility] Interpretation and review of laboratory results Abnormal [facility] Ketones (U) [Mass/Vol] Trace Abnormal Negat pawan mg/dL [facility] Leukocyte clumps LM.HPF (Urine sed) [#/Area] Occasional Abnormal Negative /HPF [facility] Leukocyte esterase Test strip Ql (U) 500 Abnormal Negative Bere/uL [facility] Mucus LM.HPF (Urine sed) [#/Area] Few Negative /LPF [facility] Nitrite Ql (U) Negative Negative [facility] th Non-Squamous Epithalial Cells, Urine 0-2 Abnormal Negative /HPF [facility] pH (U) 5.5 [pH] 5.0 - 8.0 pH [facility] Protein (U) [Mass/Vol] 100 mg/dL Abnormal Negative [facility] RBC LM.HPF (Urine sed) [#/Area] 11-25 Abnormal [facility] Specific gravity (U) [Rel density] 1.021 1.005 - 1.030 [facility] Urobilinogen (U) [Mass/Vol] Normal Normal (0-1) mg/dL [facility] WBC LM.HPF (Urine sed) [#/Area] /[HPF] Abnormal [facility] Yeast.budding LM.HPF (Urine sed) [#/Area] Many Abnormal Negative /HPF [facility] BASIC METABOLIC PANELon 10--2023 Anion gap [Moles/Vol] 4 mmol/L Normal 3-13 [facility] Comment on above: Performed By: #### L [id number], [id number], [id number] ####Typesetter Apprentice: MARY SOTELO ([phone])[facility] ([facility])[address] [place] [address] Calcium [Mass/Vol] 6.6 mg/dL Low 8.4-10.4 [facility] Comment on above: Performed By: #### L [id number], LAB15, [id number] ####Typesetter Apprentice: MARY SOTELO ([phone])[facility] ([facility])[address] [place] [address] Chloride [Moles/Vol] 100 mmol/L Normal 98-107 [facility] Comment on above: Performed By: #### L [id number], LAB15, [id number] ####Typesetter Apprentice: MARY SOTELO ([phone])[facility] ([facility])[address] [place] [address] CO2 [Moles/Vol] 28 mmol/L Normal 22-30 [facility] Comment on above: Performed By: #### L [id number], LAB15, [id number] ####Typesetter Apprentice: MARY SOTELO ([phone])[facility] ([facility])[address] [place] [address] Creatinine [Mass/Vol] 2.38 mg/dL High 0.52-1.04 [facility] Comment on above: Performed By: #### L [id number], LAB15, [id number] ####Typesetter Apprentice: MARY SOTELO ([phone])[facility])[address] [place] [address] [place] GLOMERULAR FILTRATION RATE ML/MIN/1.73 SQ M.PREDICTED 22.3 mL/min/1.73m*2 Low >60.0 [facility] Comment on above: Result Comment: Calc ulation based on the Chronic Kidney Disease Epidemiology Collaboration (CKD-EPI) equation refit without adjustment for race Performed By: #### L [id number], LAB15, [id number] ####Typesetter Apprentice: MARY SOTELO ([phone])[facility])[address] [place] [address] Glucose [Mass/Vol] 229 mg/dL High 70-100 [facility] Comment on above: Performed By: #### L [id number], LAB15, [id number] ####Typesetter Apprentice: MARY SOTELO ([phone])[facility] ([facility])[address] [place] [address] Potassium [Moles/Vol] 3.6 mmol/L Normal 3.5-5.1 [facility] Comment on above: Performed By: #### L [id number], LAB15, [id number] ####Typesetter Apprentice: MARY SOTELO ([phone])[facility] [facility] [place] [address] Sodium [Moles/Vol] 132 mmol/L Low 135-145 [facility] Comment on above: Performed By: #### L [id number], [id number], [id number] ####Typesetter Apprentice: MARY SOTELO ([phone])[facility])[address] [place] [address] Urea nitrogen [Mass/Vol] 19 mg/dL High 7-17 [facility] Comment on above: Performed By: #### L [id number], [id number], [id number] ####Typesetter Apprentice: MARY SOTELO ([phone])[facility])[address] [place] [address] BLOOD CULTUREon 08-12-2024 Bacteria identified Cx Nom (Bld) Normal [facility] Comment on above: Performed By: #### L [id number] ####Typesetter Apprentice: MARY SOTELO ([phone])[facility])[address] [place] [address] Performed By: #### L [id number], [id number] ####Typesetter Apprentice: MARY SOTELO ([phone])[facility] ([facility])[address] [place] [address] BLOOD CULTURE IDENTIFICATION - AEROBICon 08-12-2024 BLOOD CULTURE IDENTIFICATION - AEROBIC Normal [facility] Comment on above: Performed By: #### L [id number], [id number] ####Typesetter Apprentice: MARY SOTELO ([phone])[facility] ([facility])[address] [place] [address] BLOOD GAS, VENOUSon 08-12-20 24 Base excess Calc (BldV) [Moles/Vol] -2.5000 mmol/L Normal -3.0-3.0 [facility] Comment on above: Performed By: #### L AB79 ####Typesetter Apprentice: MARY SOTELO ([phone])[facility] ([facility])[address] [place] [address] CO2 [Moles/Vol] 26.1 mmol/L Normal 24.0-28.0 [facility] Comment on above: Performed By: #### L AB79 ####Typesetter Apprentice: MARY SOTELO ([phone])[facility] ([facility])[address] [place] [address] HCO3 (Bld) [Moles/Vol] 24.5 mmol/L Normal 23.0-27.0 [facility] Comment on above: Performed By: #### L AB79 ####Typesetter Apprentice: MARY SOTELO ([phone])[facility] ([facility])[address] [place] [address] Hemoglobin (Bld) [Mass/Vol] 9.6 g/dL Normal Screen only [facility] Comment on above: Performed By: #### L AB79 ####Typesetter Apprentice: MARY SOTELO ([phone])[facility])[address] [place] [address] OXYGEN (MM HG) IN VENOUS BLOOD 57.8 mm Hg Normal [facility] Comment on above: Performed By: #### L AB79 ####Typesetter Apprentice: MARY SOTELO ([phone])[facility] ([facility])[address] [place] [address] OXYGEN SATURATION (%) IN VENOUS BLOOD 89.0 % Normal [facility] Comment on above: Performed By: #### L AB79 ####Typesetter Apprentice: MARY SOTELO ([phone])[facility])[address] [place] [address] PCO2, ROHIT 53.4 mm Hg Normal 40.0-55.0 [facility] Comment on above: Performed By: #### L AB79 ####Typesetter Apprentice: MARY SOTELO ([phone])[facility])[address] [place] [address] PH VENOUS 7.279 Low 7.330-7.430 [facility] Comment on above: Performed By: #### L AB79 ####Typesetter Apprentice: MARY SOTELO ([phone])[address] SOURCE OF OXYGEN 30% Oxygen Normal [facility] Comment on above: Result Comment: BINA Olivarez COMMENTS:Assessment of oxygenation is best done with an arterial blood gas determination. Reference ranges for pO2, bicarbonate, and base excess are for mixed venous blood. Specimens drawn from a peripheral vein will often have higher values. Performed By: #### L AB79 ####Typesetter Apprentice: MARY SOTELO ([phone])[facility] ([facility])[address] [place] [address] Base excess Calc (BldV) [Moles/Vol] -1.4000 mmol/L Normal -3.0-3.0 [facility] Comment on above: Performed By: #### L AB79 ####Typesetter Apprentice: MARY SOTELO ([phone])[facility] ([facility])[address] [place] [address] CO2 [Moles/Vol] 27.7 mmol/L Normal 24.0-28.0 [facility] Comment on above: Performed By: #### L AB79 ####Typesetter Apprentice: MARY SOTELO ([phone])[facility] ([facility])[address] [place] [address] HCO3 (Bld) [Moles/Vol] 25.9 mmol/L Normal 23.0-27.0 [facility] Comment on above: Performed By: #### L AB79 ####Typesetter Apprentice: MARY SOTELO ([phone])[facility])[address] [place] [address] Hemoglobin (Bld) [Mass/Vol] 7.7 g/dL Normal Screen only [facility] Comment on above: Performed By: #### L AB79 ####Typesetter Apprentice: MARY SOTELO ([phone])[facility])[address] [place] [address] OXYGEN (MM HG) IN VENOUS BLOOD 73.2 mm Hg Normal [facility] Comment on above: Performed By: #### L AB79 ####Typesetter Apprentice: MARY SOTELO ([phone])[facility])[address] [place] [address] OXYGEN SATURATION (%) IN VENOUS BLOOD 94.9 % Normal [facility] Comment on above: Performed By: #### L AB79 ####Typesetter Apprentice: MARY SOTELO ([phone])[facility])[address] [place] [address] PCO2, ROHIT 58.7 mm Hg High 40.0-55.0 [facility] Comment on above: Performed By: #### L AB79 ####Typesetter Apprentice: MARY SOTELO ([phone])[address] PH VENOUS 7.262 Low 7.330-7.430 [facility] Comment on above: Performed By: #### L AB79 ####Typesetter Apprentice: MAYR SOTELO ([phone])[facility])[address] [place] [address] SOURCE OF OXYGEN Bi-PAP Normal [facility] Comment on above: Result Comment: BINA [...] higher values. Performed By: #### L AB79 ####Typesetter Apprentice: MARY SOTELO ([phone])[facility])[address] [place] [address] Base excess Calc (BldV) [Moles/Vol] -0.7000 mmol/L Normal -3.0-3.0 [facility] Comment on above: Performed By: #### L AB79 ####Typesetter Apprentice: MARY SOTELO ([phone])[facility])[address] [place] [address] CO2 [Moles/Vol] 33.5 mmol/L High 24.0-28.0 [facility] Comment on above: Performed By: #### L AB79 ####Typesetter Apprentice: MARY SOTELO ([phone])[facility])[address] [place] [address] HCO3 (Bld) [Moles/Vol] 30.4 mmol/L High 23.0-27.0 [facility] Comment on above: Performed By: #### L AB79 ####Typesetter Apprentice: MARY SOTELO ([phone])[facility])[address] [place] [address] Hemoglobin (Bld) [Mass/Vol] 9.1 g/dL Normal Screen only [facility] Comment on above: Performed By: #### L AB79 ####Typesetter Apprentice: MARY SOTELO ([phone])[facility])[address] [place] [address] OXYGEN (MM HG) IN VENOUS BLOOD 44.4 mm Hg Normal [facility] Comment on above: Performed By: #### L AB79 ####Typesetter Apprentice: MARY SOTELO ([phone])[facility])[address] [place] [address] OXYGEN SATURATION (%) IN VENOUS BLOOD 74.5 % Normal [facility] Comment on above: Performed By: #### L AB79 ####Typesetter Apprentice: MARY SOTELO ([phone])[facility] ([facility])[address] [place] [address] PCO2, ROHIT 101.8 mm Hg High 40.0-55.0 [facility] Comment on above: Performed By: #### L AB79 ####Typesetter Apprentice: MARY SOTELO ([phone])[facility] ([facility])[address] [place] [address] PH VENOUS 7.093 Low 7.330-7.430 [facility] Comment on above: Performed By: #### L AB79 ####Typesetter Apprentice: MARY SOTELO ([phone])[facility] ([facility])[address] [place] [address] SOURCE OF OXYGEN Nasal cannula Normal [facility] Comment on above: Result Comment: 4 yousif [...] a syringe. Performed By: #### L AB79 ####Typesetter Apprentice: MARY SOTELO ([phone])[facility] ([facility])[address] [place] [address] BLOOD TYPE AND SCREEN GELon 08-12-2024 ABO GROUPING O Normal [facility] Comment on above: Performed By: #### L [id number] ####Typesetter Apprentice: MARY SOTELO ([phone])[facility] ([facility])[address] [place] [address] RH TYPE IN BLOOD Positive Normal [facility] Comment on above: Performed By: #### L [id number] ####Typesetter Apprentice: MARY SOTELO ([phone])[facility] ([facility])[address] [place] [address] CBC WITH AUTO DIFFERENTIALon 08-12-2024 Basophils (Bld) [#/Vol] 0.0 10*3/uL Normal 0.0-0.2 [facility] Comment on above: Performed By: #### L [id number], [id number] ####Typesetter Apprentice: MARY SOTELO ([phone])[address] Basophils/100 WBC (Bld) 0.8 % Normal 0.0-2.0 [facility] Comment on above: Performed By: #### L [id number], [id number] ####Typesetter Apprentice: MARY SOTELO ([phone])[facility])[address] [place] [address] Eosinophils (Bld) [#/Vol] 0.1 10*3/uL Normal 0.0-0.5 [facility] Comment on above: Performed By: #### L [id number], [id number] ####Typesetter Apprentice: MARY SOTELO ([phone])[address] Eosinophils/100 WBC (Bld) 2.9 % Normal 0.0-6.0 [facility] Comment on above: Performed By: #### Dora AB296, [id number] ####Typesetter Apprentice: MAYR SOTELO ([phone])[address] Erythrocyte distribution width (RBC) [Ratio] 16.4 % High 11.5-15.0 [facility] Comment on above: Performed By: #### L [id number], [id number] ####Typesetter Apprentice: MARY SOTELO ([phone])[address] Hematocrit (Bld) [Volume fraction] 22.3 % Low 35.0-47.0 [facility] Comment on above: Performed By: #### L [id number], [id number] ####Typesetter Apprentice: MARY SOTELO ([phone])[address] Hemoglobin (Bld) [Mass/Vol] 6.9 g/dL Critically low 11.7-16.0 [facility] Comment on above: Performed By: #### L [id number], [id number] ####Typesetter Apprentice: MARY SOTELO ([phone])[facility])[address] [place] [address] IMMATURE GRANS % 0.5 % Normal 0.0-2.0 [facility] Comment on above: Performed By: #### Dora AB296, [id number] ####Typesetter Apprentice: MARY SOTELO ([phone])[facility])[address] [place] [address] IMMATURE GRANS ABSOLUTE 0.0 10*3/uL Normal <0.1 [facility] Comment on above: Performed By: #### L [id number], [id number] ####Typesetter Apprentice: MARY SOTELO ([phone])[facility])[address] [place] [address] IPF 4 Normal [facility] Comment on above: Performed By: #### Dora AB296, [id number] ####Typesetter Apprentice: MARY SOTELO ([phone])[facility])[address] [place] [address] Lymphocytes (Bld) [#/Vol] 0.6 10*3/uL Low 1.0-4.3 [facility] Comment on above: Performed By: #### L AB296, [id number] ####Typesetter Apprentice: MARY SOTELO ([phone])[facility])[address] [place] [address] Lymphocytes/100 WBC (Bld) 14.8 % Low 15.0-45.0 [facility] Comment on above: Performed By: #### L AB296, [id number] ####Typesetter Apprentice: MARY SOTELO ([phone])[facility])[address] [place] [address] MCH (RBC) [Entitic mass] 28.9 pg Normal 26.0-34.0 [facility] Comment on above: Performed By: #### L AB296, [id number] ####Typesetter Apprentice: MARY SOTELO ([phone])[facility])[address] [place] [address] MCHC 30.9 % Normal 30.5-36.0 [facility] Comment on above: Performed By: #### L AB296, [id number] ####Typesetter Apprentice: MARY SOTELO ([phone])[facility])[address] [place] [address] MCV (RBC) [Entitic vol] 93.3 fL Normal 77.0-99.0 [facility] Comment on above: Performed By: #### L AB296, [id number] ####Typesetter Apprentice: MARY SOTELO ([phone])[facility])[address] [place] [address] Monocytes (Bld) [#/Vol] 0.2 10*3/uL Normal 0.0-0.9 [facility] Comment on above: Performed By: #### Dora AB296, [id number] ####Typesetter Apprentice: MARY SOTELO ([phone])[facility])[address] [place] [address] Monocytes/100 WBC (Bld) 5.0 % Normal 5.0-13.0 [facility] Comment on above: Performed By: #### L [id number], [id number] ####Typesetter Apprentice: MARY SOTELO ([phone])[facility])[address] [place] [address] NEUTROPHILS ABSOLUTE 2.9 10*3/uL Normal 1.8-7.5 [facility] Comment on above: Performed By: #### L AB296, [id number] ####Typesetter Apprentice: MARY SOTELO ([phone])[facility])[address] [place] [address] Neutrophils/100 WBC (Bld) 76.0 % Normal 38.0-82.0 [facility] Comment on above: Performed By: #### L AB296, [id number] ####Typesetter Apprentice: MARY SOTELO ([phone])[facility] ([facility])[address] [place] [address] NRBC 0.0 /100 WBCs Normal 0.0-2.0 [facility] Comment on above: Performed By: #### L AB296, [id number] ####Typesetter Apprentice: MARY SOTELO ([phone])[facility] ([facility])[address] [place] [address] Platelet mean volume (Bld) [Entitic vol] 10.6 fL Normal 9.0-12.7 [facility] Comment on above: Performed By: #### L AB296, [id number] ####Typesetter Apprentice: MARY SOTELO ([phone])[facility] ([facility])[address] [place] [address] Platelets (Bld) [#/Vol] 85 10*3/uL Low 140-440 [facility] Comment on above: Performed By: #### L [id number], [id number] ####Typesetter Apprentice: MARY SOTELO ([phone])[facility] ([facility])[address] [place] [address] RBC (Bld) [#/Vol] 2.39 10*6/uL Low 3.80-5.20 [facility] Comment on above: Performed By: #### L [id number], [id number] ####Typesetter Apprentice: MARY SOTELO ([phone])[facility] ([facility])[address] [place] [address] WBC (Bld) [#/Vol] 3.8 10*3/uL Normal 3.6-10.7 [facility] Comment on above: Performed By: #### L [id number], [id number] ####Typesetter Apprentice: MARY SOTELO ([phone])[facility])[address] [place] [address] Basophils (Bld) [#/Vol] 0.0 10*3/uL Normal 0.0-0.2 [facility] Comment on above: Performed By: #### L [id number] ####Typesetter Apprentice: MARY SOTELO ([phone])[facility])[address] [place] [address] Basophils/100 WBC (Bld) 0.8 % Normal 0.0-2.0 [facility] Comment on above: Performed By: #### L [id number] ####Typesetter Apprentice: MARY SOTELO ([phone])[facility])[address] [place] [address] Eosinophils (Bld) [#/Vol] 0.1 10*3/uL Normal 0.0-0.5 [facility] Comment on above: Performed By: #### L [id number] ####Typesetter Apprentice: MARY SOTELO ([phone])[facility])[address] [place] [address] Eosinophils/100 WBC (Bld) 2.5 % Normal 0.0-6.0 [facility] Comment on above: Performed By: #### L [id number] ####Typesetter Apprentice: MARY SOTELO ([phone])[address] Erythrocyte distribution width (RBC) [Ratio] 16.5 % High 11.5-15.0 [facility] Comment on above: Performed By: #### L [id number] ####Typesetter Apprentice: MARY SOTELO ([phone])[address] Hematocrit (Bld) [Volume fraction] 26.5 % Low 35.0-47.0 [facility] Comment on above: Performed By: #### L [id number] ####Typesetter Apprentice: MARY SOTELO ([phone])[address] Hemoglobin (Bld) [Mass/Vol] 7.9 g/dL Low 11.7-16.0 [facility] Comment on above: Performed By: #### L [id number] ####Typesetter Apprentice: MARY SOTELO ([phone])[facility])[address] [place] [address] IMMATURE GRANS % 0.6 % Normal 0.0-2.0 [facility] Comment on above: Performed By: #### L [id number] ####Typesetter Apprentice: MARY SOTELO ([phone])[facility])[address] [place] [address] IMMATURE GRANS ABSOLUTE 0.0 10*3/uL Normal <0.1 [facility] Comment on above: Performed By: #### L [id number] ####Typesetter Apprentice: MARY SOTELO ([phone])[facility])[address] [place] [address] IPF 5 Normal [facility] Comment on above: Performed By: #### L [id number] ####Typesetter Apprentice: MARY SOTELO ([phone])[facility])[address] [place] [address] Lymphocytes (Bld) [#/Vol] 1.3 10*3/uL Normal 1.0-4.3 [facility] Comment on above: Performed By: #### L [id number] ####Typesetter Apprentice: MARY SOTELO ([phone])[facility])[address] [place] [address] Lymphocytes/100 WBC (Bld) 27.1 % Normal 15.0-45.0 [facility] Comment on above: Performed By: #### L [id number] ####Typesetter Apprentice: MARY SOTELO ([phone])[facility])[address] [place] [address] MCH (RBC) [Entitic mass] 28.4 pg Normal 26.0-34.0 [facility] Comment on above: Performed By: #### L [id number] ####Typesetter Apprentice: MARY SOTELO ([phone])[facility])[address] [place] [address] MCHC 29.8 % Low 30.5-36.0 [facility] Comment on above: Performed By: #### L [id number] ####Typesetter Apprentice: MARY SOTELO ([phone])[facility] ([facility])[address] [place] [address] MCV (RBC) [Entitic vol] 95.3 fL Normal 77.0-99.0 [facility] Comment on above: Performed By: #### L [id number] ####Typesetter Apprentice: MARY SOTELO ([phone])[facility] ([facility])[address] [place] [address] Monocytes (Bld) [#/Vol] 0.6 10*3/uL Normal 0.0-0.9 [facility] Comment on above: Performed By: #### L [id number] ####Typesetter Apprentice: MARY SOTELO ([phone])[facility])[address] [place] [address] Monocytes/100 WBC (Bld) 13.4 % High 5.0-13.0 [facility] Comment on above: Performed By: #### L [id number] ####Typesetter Apprentice: MARY SOTELO ([phone])[facility] ([facility])[address] [place] [address] NEUTROPHILS ABSOLUTE 2.7 10*3/uL Normal 1.8-7.5 [facility] Comment on above: Performed By: #### L [id number] ####Typesetter Apprentice: MARY SOTELO ([phone])[facility])[address] [place] [address] Neutrophils/100 WBC (Bld) 55.6 % Normal 38.0-82.0 [facility] Comment on above: Performed By: #### L [id number] ####Typesetter Apprentice: MARY SOTELO ([phone])[facility])[address] [place] [address] NRBC 0.0 /100 WBCs Normal 0.0-2.0 [facility] Comment on above: Performed By: #### L [id number] ####Typesetter Apprentice: MARY SOTELO ([phone])[facility] [place] [address] Platelet mean volume (Bld) [Entitic vol] 11.3 fL Normal 9.0-12.7 [facility] Comment on above: Performed By: #### L [id number] ####Typesetter Apprentice: MARY SOTELO ([phone])[facility] ([facility])[address] [place] [address] Platelets (Bld) [#/Vol] 89 10*3/uL Low 140-440 [facility] Comment on above: Performed By: #### L [id number] ####Typesetter Apprentice: MARY SOTELO ([phone])[facility] ([facility])[address] [place] [address] RBC (Bld) [#/Vol] 2.78 10*6/uL Low 3.80-5.20 [facility] Comment on above: Performed By: #### L [id number] ####Typesetter Apprentice: MARY SOTELO ([phone])[facility] ([facility])[address] [place] [address] WBC (Bld) [#/Vol] 4.8 10*3/uL Normal 3.6-10.7 [facility] Comment on above: Performed By: #### L [id number] ####Typesetter Apprentice: MARY SOTELO ([phone])[facility] ([facility])[address] [place] [address] COMPREHENSIVE METABOLIC PANE [place] 08-12-2024 Albumin [Mass/Vol] 2.9 g/dL Low 3.5-5.0 [facility] Comment on above: Performed By: #### L [id number] ####Typesetter Apprentice: MARY SOTELO ([phone])[facility])[address] [place] [address] ALP [Catalytic activity/Vol] 52 U/L Normal 38-126 [facility] Comment on above: Performed By: #### L [id number] ####Typesetter Apprentice: MARY SOTELO ([phone])[facility] ([facility])[address] [place] [address] ALT [Catalytic activity/Vol] 13 U/L Normal 0-34 [facility] Comment on above: Performed By: #### L [id number] ####Typesetter Apprentice: MARY SOTELO ([phone])[facility] ([facility])[address] [place] [address] Anion gap [Moles/Vol] 7 mmol/L Normal 3-13 [facility] Comment on above: Performed By: #### L [id number] ####Typesetter Apprentice: MARY SOTELO ([phone])[facility] ([facility])[address] [place] [address] AST [Catalytic activity/Vol] 18 U/L Normal 15-46 [facility] Comment on above: Performed By: #### L [id number] ####Typesetter Apprentice: MARY SOTELO ([phone])[facility] ([facility])[address] [place] [address] Bilirubin [Mass/Vol] 0.9 mg/dL Normal 0.2-1.3 [facility] Comment on above: Performed By: #### L [id number] ####Typesetter Apprentice: MARY SOTELO ([phone])[facility] ([facility])[address] [place] [address] Calcium [Mass/Vol] 6.9 mg/dL Low 8.4-10.4 [facility] Comment on above: Performed By: #### L [id number] ####Typesetter Apprentice: MARY SOTELO ([phone])[facility] ([facility])[address] [place] [address] [place] Chloride [Moles/Vol] 100 mmol/L Normal 98-107 [facility] Comment on above: Performed By: #### L [id number] ####Typesetter Apprentice: MARY SOTELO ([phone])[facility] ([facility])[address] [place] [address] [place] CO2 [Moles/Vol] 22 mmol/L Normal 22-30 [facility] Comment on above: Performed By: #### L [id number] ####Typesetter Apprentice: MARY SOTELO ([phone])[facility] ([facility])[address] [place] [address] Creatinine [Mass/Vol] 2.56 mg/dL High 0.52-1.04 [facility] Comment on above: Performed By: #### L [id number] ####Typesetter Apprentice: MARY SOTELO ([phone])[facility] ([facility])[address] [place] [address] GLOMERULAR FILTRATION RATE ML/MIN/1.73 SQ M.PREDICTED 20.4 mL/min/1.73m*2 Low >60.0 [facility] Comment on above: Result Comment: Calc ulation based on the Chronic Kidney Disease Epidemiology Collaboration (CKD-EPI) equation refit without adjustment for race Performed By: #### L [id number] ####Typesetter Apprentice: MARY SOTELO ([phone])[facility] ([facility])[address] [place] [address] Glucose [Mass/Vol] 220 mg/dL High 70-100 [facility] Comment on above: Performed By: #### L [id number] ####Typesetter Apprentice: MARY SOTELO ([phone])[facility] ([facility])[address] [place] [address] Potassium [Moles/Vol] 4.2 mmol/L Normal 3.5-5.1 [facility] Comment on above: Performed By: #### L AB17 ####Typesetter Apprentice: MARY SOTELO ([phone])[facility])[address] [place] [address] Protein [Mass/Vol] 5.2 g/dL Low 6.3-8.2 [facility] Comment on above: Performed By: #### L AB17 ####Typesetter Apprentice: MARY SOTELO ([phone])[facility])[address] [place] [address] Sodium [Moles/Vol] 130 mmol/L Low 135-145 [facility] Comment on above: Performed By: #### L AB17 ####Typesetter Apprentice: MARY SOTELO ([phone])[facility] ([facility])[address] [place] [address] Urea nitrogen [Mass/Vol] 20 mg/dL High 7-17 [facility] Comment on above: Performed By: #### L AB17 ####Typesetter Apprentice: MARY SOTELO ([phone])[facility] ([facility])[address] [place] [address] CT HEAD NECK ANGIO W AND WO IV CONTRASTon 08-12-2024 CT HEAD NECK ANGIO W AND WO IV CONTRAST Normal [facility] CT HEAD WO IV CONTRASTon CT HEAD WO IV CONTRAST Normal [facility] CT HEAD WO IV CONTRAST Normal [facility] CT Head WO contraston [address] [...] MD Electronically Signed Date/Time: 08/12/2024 8:18 AM [facility] 1960 [id number] Exam Date/Time: 08/11/2024 15:35 Procedure: CT HEAD [...] orbits and extracranial soft tissues are unremarkable. [facility] Reece Mckinley MD - 08/12/2024 [facility] Name[facility] 1960 [id number] Exam Date/Time: 08/11/2024 15:35 Procedure: CT HEAD [...] Electronically Signed Date/Time: 08/12/2024 8:18 AM EDT [facility] CT Head WO contrastOrdered B y: Reece Mckinley on 08-12-2024 [facility] Work Phone: CT PERFUSIONon 08-12-2024 CT PERFUSION Normal [facility] Consulton 08-12-2024 Consult Normal [facility] ECG 12-LEADon 08-12-2024 ECG 12-LEAD IMPRESSION: Sinus rhythm Consider left ventricular hypertrophy Electronically Signed On 08-12-2024 18:40:59 EDT by Fabrizio Guillory Normal [facility] ED Nursing Noteon 08-12-2024 ED Nursing Note Report given to T3 Juanis Jogre. Margret Doan RN 08/12/24 1634 Normal [facility] ED Nursing Note ICU at bedside. Clari Bronson RN 08/12/24 1517 Normal [facility] ED Provider Noteon ED Provider Note Normal [facility] FERRITINon 08-12-2024 Ferritin [Mass/Vol] 231 ng/mL Normal 11-264 [facility] Comment on above: Performed By: #### L AB69, LAB68, [id number], LAB67 ####Typesetter Apprentice: MARY SOTELO ([phone])[facility] [place] [address] FOLATEon 08-12-2024 FOLATE RESULT 10.8 ng/mL Normal >=2.9 [facility] Comment on above: Performed By: #### L AB69, LAB68, [id number], LAB67 ####Typesetter Apprentice: MARY SOTELO ([phone])[facility] [place] [address] [place] IDNon 08-12-2024 IDN Normal [facility] IRON AND TIBCon 08-12-2024 IRON BINDING CAPACITY 158 ug/dL Low [id number] [facility] Comment on above: Performed By: #### L [id number] ####Typesetter Apprentice: MARY SOTELO ([phone])[facility] ([facility])[address] [place] [address] IRON SATURATION 45 % Normal 15-50 [facility] Comment on above: Performed By: #### L [id number] ####Typesetter Apprentice: MARY SOTELO ([phone])[facility] ([facility])[address] [place] [address] IRON, TOTAL 71 ug/dL Normal 37-170 [facility] Comment on above: Performed By: #### L [id number] ####Typesetter Apprentice: MARY SOTELO ([phone])[facility])[address] [place] [address] LACTIC ACID WITH REFLEXon Lactate [Moles/Vol] 1.6 mmol/L Normal 0.7-2.0 [facility] Comment on above: Performed By: #### L [id number] ####Typesetter Apprentice: MARY SOTELO ([phone])[facility])[address] [place] [address] NT PRO BNPon 08-12-2024 NT PRO BNP >15153 High <125 [facility] Comment on above: Performed By: #### L [id number], LAB15, [id number] ####Typesetter Apprentice: MARY SOTELO ([phone])[facility])[address] [place] [address] Nursing Noteon 08-12-2024 Nursing Note Normal [facility] RETICULOCYTESon 08-12-2024 Reticulocytes/100 RBC (Bld) 2.41 % Normal [facility] Comment on above: Result Comment: Newb orn < 5%Adults 0.4 - 2.0% Performed By: #### L [id number], [id number] ####Typesetter Apprentice: MARY SOTELO ([phone])[facility])[address] [place] [address] TROPONIN Ion 08-12-2024 Troponin I.cardiac [Mass/Vol] 0.052 ng/mL High <0.034 [facility] Comment on above: Result Comment: BINA Olivarez COMMENTS:Patients with high levels of Biotin oral intake (ie >5 mg/day) may have falsely decreased Troponin levels. Performed By: #### L AB69, LAB68, [id number], LAB67 ####Typesetter Apprentice: MARY SOTELO ([phone])[facility])[address] [place] [address] Troponin I.cardiac [Mass/Vol] 0.046 ng/mL High <0.034 [facility] Comment on above: Result Comment: BINA Olivarez COMMENTS:Patients with high levels of Biotin oral intake (ie >5 mg/day) may have falsely decreased Troponin levels. Performed By: #### L [id number] ####Typesetter Apprentice: MARY SOTELO ([phone])[facility])[address] [place] [address] TROPONIN, WITH SERIAL REFLEX on 08-12-2024 Troponin I.cardiac [Mass/Vol] 0.046 ng/mL High <0.034 [facility] Comment on above: Result Comment: BINA Olivarez COMMENTS:Patients with high levels of Biotin oral intake (ie >5 mg/day) may have falsely decreased Troponin levels. Performed By: #### L [id number], LAB15, [id number] ####Typesetter Apprentice: MARY SOTELO ([phone])[facility])[address] [place] [address] VITAMIN B12on 08-12-2024 Cobalamin (Vitamin B12) [Mass/Vol] 932 pg/mL High 239-931 [facility] Comment on above: Performed By: #### L AB69, LAB68, [id number], LAB67 ####Typesetter Apprentice: MARY SOTELO ([phone])[facility])[address] [place] [address] [place]OORDon 08-11-2024 [facility] Patient Choice Patient Name: SANDY DENG Date of : 1960 Normal [facility] CT Head WO contraston 2023 Radiology Study observation (narrative) [facility] Progress Noteon 08-11-2024 Progress Note Normal [facility] BASIC METABOLIC PANELon Anion gap [Moles/Vol] 2 mmol/L Low 3-13 [facility] Comment on above: Performed By: #### L AB113, [id number], LAB15 ####Typesetter Apprentice: MARY SOTELO ([phone])[facility] [place] [address] Calcium [Mass/Vol] 6.6 mg/dL Low 8.4-10.4 [facility] Comment on above: Performed By: #### L AB113, [id number], LAB15 ####Typesetter Apprentice: MARY SOTELO ([phone])[facility] [place] [address] Chloride [Moles/Vol] 102 mmol/L Normal 98-107 [facility] Comment on above: Performed By: #### L AB113, [id number], LAB15 ####Typesetter Apprentice: MARY SOTELO ([phone])[facility] [place] [address] CO2 [Moles/Vol] 33 mmol/L High 22-30 [facility] Comment on above: Performed By: #### Dora AB113, [id number], LAB15 ####Typesetter Apprentice: MARY SOTELO ([phone])[facility] [place] [address] Creatinine [Mass/Vol] 2.85 mg/dL High 0.52-1.04 [facility] Comment on above: Performed By: #### L AB113, [id number], LAB15 ####Typesetter Apprentice: MARY SOTELO ([phone])[facility] ([facility])[address] [place] [address] [place] GLOMERULAR FILTRATION RATE ML/MIN/1.73 SQ M.PREDICTED 17.9 mL/min/1.73m*2 Low >60.0 [facility] Comment on above: Result Comment: Calc ulation based on the Chronic Kidney Disease Epidemiology Collaboration (CKD-EPI) equation refit without adjustment for race Performed By: #### L AB113, OFV740, LAB15 ####Typesetter Apprentice: MARY SOTELO ([phone])[facility] [place] [address] [place] Glucose [Mass/Vol] 110 mg/dL High 70-100 [facility] Comment on above: Performed By: #### L AB113, EHM507, LAB15 ####Typesetter Apprentice: MARY SOTELO ([phone])[facility] ([facility])[address] [place] [address] Potassium [Moles/Vol] 4.2 mmol/L Normal 3.5-5.1 [facility] Comment on above: Performed By: #### L AB113, [id number], LAB15 ####Typesetter Apprentice: MARY SOTELO ([phone])[facility] ([facility])[address] [place] [address] Sodium [Moles/Vol] 138 mmol/L Normal 135-145 [facility] Comment on above: Performed By: #### L AB113, [id number], LAB15 ####Typesetter Apprentice: MARY SOTELO ([phone])[facility] ([facility])[address] [place] [address] Urea nitrogen [Mass/Vol] 25 mg/dL High 7-17 [facility] Comment on above: Performed By: #### L AB113, QXM673, LAB15 ####Typesetter Apprentice: MARY SOTELO ([phone])[facility] ([facility])[address] [place] [address] Basic metabolic 1998 panelon 08-10-2024 Anion gap [Moles/Vol] 2 mmol/L Low 3 - 13 mmol/L [facility] Calcium [Mass/Vol] 6.6 mg/dL Low 8.4 - 10. 4 mg/dL [facility] Chloride [Moles/Vol] 102 mmol/L 98 - 10 7 mmol/L [facility] CO2 [Moles/Vol] 33 mmol/L High 22 - 30 mmol/L [facility] Creatinine [Mass/Vol] 2.85 mg/dL High 0.52 - 1.04 mg/dL [facility] GFR/1.73 sq M.predicted (S/P/Bld) [Vol rate/Area] 17.9 mL/min Low - PINF [facility] Glucose [Mass/Vol] 110 mg/dL High 70 - 100 mg/dL [facility] Interpretation and review of laboratory results Abnormal [facility] Potassium [Moles/Vol] 4.2 mmol/L 3.5 - 5.1 mmol/L [facility] Sodium [Moles/Vol] 138 mmol/L 135 - 145 mmol/L [facility] Urea nitrogen [Mass/Vol] 25 mg/dL High 7 - 17 mg/dL [facility] C3, BLOODon 08-10-2024 C3, BLOOD 64 mg/dL Low 88-165 [facility] Comment on above: Performed By: #### L AB151, [id number] ####Typesetter Apprentice: MARLENY GUZMÁN ([phone])[facility] ([facility])[address] C4 COMPLEMENTon 08-10-2024 C4, BLOOD 13 mg/dL Low 14-44 [facility] Comment on above: Performed By: #### L AB151, [id number] ####Typesetter Apprentice: MARLENY GUZMÁN ([phone])[facility] ([facility])[address] CARECOORDon 08-10-2024 [place] Normal [facility] [place] Normal [facility] [place] Transportation set v ia cot through [facility] for today 08-10-24 @2pm to [facility]. TCC, RN, [employer], facility, Pt, and Pt's Jose notified. [facility]. [facility] . Med team notified of auth and need discharge orders . Done. SW to arrange transport today . [facility] CBC W Auto Differential pane l (Bld)on 08-10-2024 Basophils (Bld) [#/Vol] 0.0 10*3/uL 0.0 - 0.2 10*3/uL [facility] Basophils/100 WBC (Bld) 0.2 % 0.0 - 2.0 % [facility] Eosinophils (Bld) [#/Vol] 0.3 10*3/uL 0.0 - 0.5 10*3/uL [facility] Eosinophils/100 WBC (Bld) 5.2 % 0.0 - 6.0 % [facility] Erythrocyte distribution width (RBC) [Ratio] 17.2 % High 11.5 - 15.0 % [facility] Hematocrit (Bld) [Volume fraction] 26.2 % Low 35.0 - 47.0 % [facility] Hemoglobin (Bld) [Mass/Vol] 7.8 g/dL Low 11.7 - 16.0 g/dL [facility] Immature granulocytes (Bld) [#/Vol] 0.1 10*3/uL High NINF - 0.1 10*3/uL [facility] Immature granulocytes/100 WBC (Bld) 0.8 % 0.0 - 2.0 % [facility] Interpretation and review of laboratory results Abnormal [facility] IPF 4 [facility] Lymphocytes (Bld) [#/Vol] 1.0 10*3/uL 1.0 - 4.3 10*3/uL [facility] Lymphocytes/100 WBC (Bld) 16.2 % 15.0 - 45.0 % [facility] MCH (RBC) [Entitic mass] 28.5 pg 26.0 - 34.0 pg [facility] MCHC (RBC) [Mass/Vol] 29.8 % Low 30.5 - 36.0 % [facility] MCV (RBC) [Entitic vol] 95.6 fL 77.0 - 99.0 fL [facility] Monocytes (Bld) [#/Vol] 0.4 10*3/uL 0.0 - 0.9 10*3/uL [facility] Monocytes/100 WBC (Bld) 6.2 % 5.0 - 13.0 % [facility] Neutrophils (Bld) [#/Vol] 4.3 10*3/uL 1.8 - 7.5 10*3/uL [facility] Neutrophils/100 WBC (Bld) 71.4 % 38.0 - 82.0 % [facility] [employer] Nucleated RBC/100 WBC (Bld) [Ratio] 0.0 % [facility] Platelet mean volume (Bld) [Entitic vol] 10.7 fL 9.0 - 12.7 fL [facility] Platelets (Bld) [#/Vol] 95 10*3/uL Low 140 - 440 10*3/uL [facility] RBC (Bld) [#/Vol] 2.74 10*6/uL Low 3.80 - 5.2 0 10*6/uL [facility] WBC (Bld) [#/Vol] 6.0 10*3/uL 3.6 - 10.7 10*3/uL [facility] CBC WITH AUTO DIFFERENTIALon 08-10-2024 Basophils (Bld) [#/Vol] 0.0 10*3/uL Normal 0.0-0.2 [facility] Comment on above: Performed By: #### L [id number] ####Typesetter Apprentice: MARY SOTELO ([phone])[facility])[address] [place] [address] Basophils/100 WBC (Bld) 0.2 % Normal 0.0-2.0 [facility] Comment on above: Performed By: #### L [id number] ####Typesetter Apprentice: MARY SOTELO ([phone])[facility])[address] [place] [address] Eosinophils (Bld) [#/Vol] 0.3 10*3/uL Normal 0.0-0.5 [facility] Comment on above: Performed By: #### L [id number] ####Typesetter Apprentice: MARY SOTELO ([phone])[facility])[address] [place] [address] Eosinophils/100 WBC (Bld) 5.2 % Normal 0.0-6.0 [facility] Comment on above: Performed By: #### L [id number] ####Typesetter Apprentice: MARY SOTELO ([phone])[facility])[address] [place] [address] Erythrocyte distribution width (RBC) [Ratio] 17.2 % High 11.5-15.0 [facility] Comment on above: Performed By: #### L [id number] ####Typesetter Apprentice: MARY SOTELO ([phone])[facility] ([facility])[address] [place] [address] Hematocrit (Bld) [Volume fraction] 26.2 % Low 35.0-47.0 [facility] Comment on above: Performed By: #### L [id number] ####Typesetter Apprentice: MARY SOTELO ([phone])[facility])[address] [place] [address] Hemoglobin (Bld) [Mass/Vol] 7.8 g/dL Low 11.7-16.0 [facility] Comment on above: Performed By: #### L [id number] ####Typesetter Apprentice: MARY SOTELO ([phone])[facility])[address] [place] [address] IMMATURE GRANS % 0.8 % Normal 0.0-2.0 [facility] Comment on above: Performed By: #### L [id number] ####Typesetter Apprentice: MARY SOTELO ([phone])[facility])[address] [place] [address] IMMATURE GRANS ABSOLUTE 0.1 10*3/uL High <0.1 [facility] Comment on above: Performed By: #### L [id number] ####Typesetter Apprentice: MARY SOTELO ([phone])[facility])[address] [place] [address] [place] IPF 4 Normal [facility] Comment on above: Performed By: #### L [id number] ####Typesetter Apprentice: MARY SOTELO ([phone])[facility] ([facility])[address] [place] [address] Lymphocytes (Bld) [#/Vol] 1.0 10*3/uL Normal 1.0-4.3 [facility] Comment on above: Performed By: #### L [id number] ####Typesetter Apprentice: MARY SOTELO ([phone])[facility])[address] [place] [address] [place] Lymphocytes/100 WBC (Bld) 16.2 % Normal 15.0-45.0 [facility] Comment on above: Performed By: #### L [id number] ####Typesetter Apprentice: MARY SOTELO ([phone])[facility])[address] [place] [address] MCH (RBC) [Entitic mass] 28.5 pg Normal 26.0-34.0 [facility] Comment on above: Performed By: #### L [id number] ####Typesetter Apprentice: MARY SOTELO ([phone])[facility])[address] [place] [address] MCHC 29.8 % Low 30.5-36.0 [facility] Comment on above: Performed By: #### L [id number] ####Typesetter Apprentice: MARY SOTELO ([phone])[facility])[address] [place] [address] MCV (RBC) [Entitic vol] 95.6 fL Normal 77.0-99.0 [facility] Comment on above: Performed By: #### L [id number] ####Typesetter Apprentice: MARY SOTELO ([phone])[facility])[address] [place] [address] Monocytes (Bld) [#/Vol] 0.4 10*3/uL Normal 0.0-0.9 [facility] Comment on above: Performed By: #### L [id number] ####Typesetter Apprentice: MARY SOTELO ([phone])[facility])[address] [place] [address] Monocytes/100 WBC (Bld) 6.2 % Normal 5.0-13.0 [facility] Comment on above: Performed By: #### L [id number] ####Typesetter Apprentice: MARY SOTELO ([phone])[facility])[address] [place] [address] NEUTROPHILS ABSOLUTE 4.3 10*3/uL Normal 1.8-7.5 [facility] Comment on above: Performed By: #### L [id number] ####Typesetter Apprentice: MARY SOTELO ([phone])[facility] ([facility])[address] [place] [address] Neutrophils/100 WBC (Bld) 71.4 % Normal 38.0-82.0 [facility] Comment on above: Performed By: #### L [id number] ####Typesetter Apprentice: MARY SOTELO ([phone])[facility] ([facility])[address] [place] [address] NRBC 0.0 /100 WBCs Normal 0.0-2.0 [facility] Comment on above: Performed By: #### L [id number] ####Typesetter Apprentice: MARY SOTELO ([phone])[facility] ([facility])[address] [place] [address] Platelet mean volume (Bld) [Entitic vol] 10.7 fL Normal 9.0-12.7 [facility] Comment on above: Performed By: #### L [id number] ####Typesetter Apprentice: MARY SOTELO ([phone])[facility] ([facility])[address] [place] [address] Platelets (Bld) [#/Vol] 95 10*3/uL Low 140-440 [facility] Comment on above: Performed By: #### L [id number] ####Typesetter Apprentice: MARY SOTELO ([phone])[facility] ([facility])[address] [place] [address] RBC (Bld) [#/Vol] 2.74 10*6/uL Low 3.80-5.20 [facility] Comment on above: Performed By: #### L [id number] ####Typesetter Apprentice: MARY SOTELO ([phone])[facility] ([facility])[address] [place] [address] [place] WBC (Bld) [#/Vol] 6.0 10*3/uL Normal 3.6-10.7 [facility] Comment on above: Performed By: #### L [id number] ####Typesetter Apprentice: MARY SOTELO ([phone])[facility] ([facility])[address] [place] [address] [place] GLUCOSE, RANDOMon 08-10-2024 Glucose [Mass/Vol] 61 mg/dL Low 70-100 [facility] Comment on above: Performed By: #### L [id number] ####Typesetter Apprentice: MARY SOTELO ([phone])[facility] [place] [address] [place] Glucose (Bld) [Mass/Vol]on 1 Glucose [Mass/Vol] 61 mg/dL Low 70 - 100 mg/dL [facility] Interpretation and review of laboratory results Abnormal [facility] IDNon 08-10-2024 IDN Normal [facility] Laboratory - Chemistry and C hemistry - challengeon 08-10-2024 Glucose [Mass/Vol] 119 mg/dL High 70 - 100 mg/dL [facility] Glucose [Mass/Vol] 109 mg/dL High 70 - 100 mg/dL [facility] Glucose [Mass/Vol] 102 mg/dL High 70 - 100 mg/dL [facility] Glucose [Mass/Vol] 96 mg/dL 70 - 100 mg/dL [facility] Glucose [Mass/Vol] 103 mg/dL High 70 - 100 mg/dL [facility] Glucose [Mass/Vol] 65 mg/dL Low 70 - 100 mg/dL [facility] Magnesium [Mass/Vol] 1.8 mg/dL 1.6 - 2 .3 mg/dL [facility] Laboratory - Hematology and Cell countson 08-10-2024 Complement C3 [Mass/Vol] 64 mg/dL Low 88 - 165 mg/dL [facility] Complement C4 [Mass/Vol] 13 mg/dL Low 14 - 44 mg/dL [facility] MAGNESIUMon 08-10-2024 Magnesium [Mass/Vol] 1.8 mg/dL Normal 1.6-2.3 [facility] Comment on above: Performed By: #### L AB113, [id number], LAB15 ####Typesetter Apprentice: MARY SOTELO ([phone])[facility] [place] [address] [place] No Panel Informationon 08-10 Interpretation and review of laboratory results Abnormal [facility] Interpretation and review of laboratory results Abnormal [facility] Interpretation and review of laboratory results Abnormal [facility] Interpretation and review of laboratory results Abnormal [facility] Interpretation and review of laboratory results Abnormal [facility] Interpretation and review of laboratory results Normal [facility] Interpretation and review of laboratory results Abnormal [facility] Interpretation and review of laboratory results Abnormal [facility] Interpretation and review of laboratory results Normal [facility] Nursing Noteon 08-10-2024 Nursing Note Report called to delores Syed at [facility]. This RN verified with Dr. Espana that pt is leaving with johnson catheter. Normal [facility] Nursing Note Normal [facility] PHOSPHORUSon 08-10-2024 Phosphate [Mass/Vol] 4.5 mg/dL Normal 2.5-4.5 [facility] Comment on above: Performed By: #### L AB113, [id number], LAB15 ####Typesetter Apprentice: MARY SOTEOL ([phone])[facility] ([facility])[address] [place] [address] [place] Phosphate [Moles/Vol]on Phosphate [Mass/Vol] 4.5 mg/dL 2.5 - 4 .5 mg/dL [facility] Progress Noteon 08-10-2024 Progress Note Normal [facility] Progress Note Normal [facility] BASIC METABOLIC PANELon Anion gap [Moles/Vol] 1 mmol/L Low 3-13 [facility] Comment on above: Performed By: #### L [id number], [id number], [id number] ####Typesetter Apprentice: MARY SOTELO ([phone])[facility] ([facility] [place] [address] [place] Calcium [Mass/Vol] 6.9 mg/dL Low 8.4-10.4 [facility] Comment on above: Performed By: #### L [id number], [id number], LAB15 ####Typesetter Apprentice: MARY SOTELO ([phone])[facility] ([facility])[address] [place] [address] [place] Chloride [Moles/Vol] 105 mmol/L Normal 98-107 [facility] Comment on above: Performed By: #### L AB113, [id number], LAB15 ####Typesetter Apprentice: MARY SOTELO ([phone])[facility] [place] [address] [place] CO2 [Moles/Vol] 30 mmol/L Normal 22-30 [facility] Comment on above: Performed By: #### L AB113, [id number], LAB15 ####Typesetter Apprentice: MARY SOTELO ([phone])[facility] ([facility])[address] [place] [address] Creatinine [Mass/Vol] 2.30 mg/dL High 0.52-1.04 [facility] Comment on above: Performed By: #### L AB113, [id number], LAB15 ####Typesetter Apprentice: MARY SOTELO ([phone])[facility] [place] [address] GLOMERULAR FILTRATION RATE ML/MIN/1.73 SQ M.PREDICTED 23.2 mL/min/1.73m*2 Low >60.0 [facility] Comment on above: Result Comment: Calc ulation based on the Chronic Kidney Disease Epidemiology Collaboration (CKD-EPI) equation refit without adjustment for race Performed By: #### L AB113, [id number], LAB15 ####Typesetter Apprentice: MARY SOTELO ([phone])[facility] [place] [address] [place] Glucose [Mass/Vol] 69 mg/dL Low 70-100 [facility] Comment on above: Performed By: #### L AB113, [id number], LAB15 ####Typesetter Apprentice: MARY SOTELO ([phone])[facility] [place] [address] [place] Potassium [Moles/Vol] 4.3 mmol/L Normal 3.5-5.1 [facility] Comment on above: Performed By: #### L AB113, [id number], LAB15 ####Typesetter Apprentice: MARY SOTELO ([phone])[facility] [place] [address] Sodium [Moles/Vol] 136 mmol/L Normal 135-145 [facility] Comment on above: Performed By: #### L AB113, [id number], LAB15 ####Typesetter Apprentice: MARY SOTELO ([phone])[facility] [place] [address] Urea nitrogen [Mass/Vol] 22 mg/dL High 7-17 [facility] Comment on above: Performed By: #### L AB113, [id number], LAB15 ####Typesetter Apprentice: MARY SOTELO ([phone])[facility] [place] [address] Basic metabolic 1998 panelon 08-09-2024 Anion gap [Moles/Vol] 1 mmol/L Low 3 - 13 mmol/L [facility] Calcium [Mass/Vol] 6.9 mg/dL Low 8.4 - 10. 4 mg/dL [facility] Chloride [Moles/Vol] 105 mmol/L 98 - 10 7 mmol/L [facility] CO2 [Moles/Vol] 30 mmol/L 22 - 30 mmol/L [facility] Creatinine [Mass/Vol] 2.30 mg/dL High 0.52 - 1.04 mg/dL [facility] GFR/1.73 sq M.predicted (S/P/Bld) [Vol rate/Area] 23.2 mL/min Low - PINF [facility] Glucose [Mass/Vol] 69 mg/dL Low 70 - 100 mg/dL [facility] Interpretation and review of laboratory results Abnormal [facility] Potassium [Moles/Vol] 4.3 mmol/L 3.5 - 5.1 mmol/L [facility] Sodium [Moles/Vol] 136 mmol/L 135 - 145 mmol/L [facility] Urea nitrogen [Mass/Vol] 22 mg/dL High 7 - 17 mg/dL [facility] CARECOORDon 08-09-2024 CARECOORD Normal [facility] CARECOORD Normal [facility] CBC W Auto Differential pane l (Bld)on 08-09-2024 Basophils (Bld) [#/Vol] 0.0 10*3/uL 0.0 - 0.2 10*3/uL [facility] Basophils/100 WBC (Bld) 0.4 % 0.0 - 2.0 % [facility] Eosinophils (Bld) [#/Vol] 0.3 10*3/uL 0.0 - 0.5 10*3/uL [facility] Eosinophils/100 WBC (Bld) 4.3 % 0.0 - 6.0 % [facility] Erythrocyte distribution width (RBC) [Ratio] 17.2 % High 11.5 - 15.0 % [facility] Hematocrit (Bld) [Volume fraction] 26.6 % Low 35.0 - 47.0 % [facility] Hemoglobin (Bld) [Mass/Vol] 8.1 g/dL Low 11.7 - 16.0 g/dL [facility] Immature granulocytes (Bld) [#/Vol] 0.1 10*3/uL High NINF - 0.1 10*3/uL [facility] Immature granulocytes/100 WBC (Bld) 0.8 % 0.0 - 2.0 % [facility] Interpretation and review of laboratory results Abnormal [facility] IPF 3 [facility] Lymphocytes (Bld) [#/Vol] 1.3 10*3/uL 1.0 - 4.3 10*3/uL [facility] Lymphocytes/100 WBC (Bld) 17.0 % 15.0 - 45.0 % [facility] MCH (RBC) [Entitic mass] 28.8 pg 26.0 - 34.0 pg [facility] MCHC (RBC) [Mass/Vol] 30.5 % 30.5 - 36.0 % [facility] MCV (RBC) [Entitic vol] 94.7 fL 77.0 - 99.0 fL [facility] Monocytes (Bld) [#/Vol] 0.5 10*3/uL 0.0 - 0.9 10*3/uL [facility] Monocytes/100 WBC (Bld) 6.1 % 5.0 - 13.0 % [facility] Neutrophils (Bld) [#/Vol] 5.5 10*3/uL 1.8 - 7.5 10*3/uL [facility] Neutrophils/100 WBC (Bld) 71.4 % 38.0 - 82.0 % [facility] Nucleated RBC/100 WBC (Bld) [Ratio] 0.0 % [facility] Platelet mean volume (Bld) [Entitic vol] 10.5 fL 9.0 - 12.7 fL [facility] Platelets (Bld) [#/Vol] 108 10*3/uL Low 140 - 440 10*3/uL [facility] RBC (Bld) [#/Vol] 2.81 10*6/uL Low 3.80 - 5.2 0 10*6/uL [facility] WBC (Bld) [#/Vol] 7.7 10*3/uL 3.6 - 10.7 10*3/uL [facility] CBC WITH AUTO DIFFERENTIALon 08-09-2024 Basophils (Bld) [#/Vol] 0.0 10*3/uL Normal 0.0-0.2 [facility] Comment on above: Performed By: #### L [id number] ####Typesetter Apprentice: MARY SOTELO ([phone])[facility])[address] [place] [address] Basophils/100 WBC (Bld) 0.4 % Normal 0.0-2.0 [facility] Comment on above: Performed By: #### L [id number] ####Typesetter Apprentice: MARY SOTELO ([phone])[facility])[address] [place] [address] Eosinophils (Bld) [#/Vol] 0.3 10*3/uL Normal 0.0-0.5 [facility] Comment on above: Performed By: #### L [id number] ####Typesetter Apprentice: MARY SOTELO ([phone])[facility])[address] [place] [address] Eosinophils/100 WBC (Bld) 4.3 % Normal 0.0-6.0 [facility] Comment on above: Performed By: #### L [id number] ####Typesetter Apprentice: MARY SOTELO ([phone])[facility])[address] [place] [address] Erythrocyte distribution width (RBC) [Ratio] 17.2 % High 11.5-15.0 [facility] Comment on above: Performed By: #### L [id number] ####Typesetter Apprentice: MARY SOTELO ([phone])[facility])[address] [place] [address] Hematocrit (Bld) [Volume fraction] 26.6 % Low 35.0-47.0 [facility] Comment on above: Performed By: #### L [id number] ####Typesetter Apprentice: MARY SOTELO ([phone])[address] Hemoglobin (Bld) [Mass/Vol] 8.1 g/dL Low 11.7-16.0 [facility] Comment on above: Performed By: #### L [id number] ####Typesetter Apprentice: MARY SOTELO ([phone])[facility])[address] [place] [address] IMMATURE GRANS % 0.8 % Normal 0.0-2.0 [facility] Comment on above: Performed By: #### L [id number] ####Typesetter Apprentice: MARY SOTELO ([phone])[address] IMMATURE GRANS ABSOLUTE 0.1 10*3/uL High <0.1 [facility] Comment on above: Performed By: #### L [id number] ####Typesetter Apprentice: MARY SOTELO ([phone])[facility])[address] [place] [address] IPF 3 Normal [facility] Comment on above: Performed By: #### L [id number] ####Typesetter Apprentice: MARY SOTELO ([phone])[facility])[address] [place] [address] Lymphocytes (Bld) [#/Vol] 1.3 10*3/uL Normal 1.0-4.3 [facility] Comment on above: Performed By: #### L [id number] ####Typesetter Apprentice: MARY SOTELO ([phone])[facility])[address] [place] [address] Lymphocytes/100 WBC (Bld) 17.0 % Normal 15.0-45.0 [facility] Comment on above: Performed By: #### L [id number] ####Typesetter Apprentice: MARY SOTELO ([phone])[facility])[address] [place] [address] MCH (RBC) [Entitic mass] 28.8 pg Normal 26.0-34.0 [facility] Comment on above: Performed By: #### L [id number] ####Typesetter Apprentice: MARY SOTELO ([phone])[facility])[address] [place] [address] MCHC 30.5 % Normal 30.5-36.0 [facility] Comment on above: Performed By: #### L [id number] ####Typesetter Apprentice: MARY SOTELO ([phone])[facility])[address] [place] [address] MCV (RBC) [Entitic vol] 94.7 fL Normal 77.0-99.0 [facility] Comment on above: Performed By: #### L [id number] ####Typesetter Apprentice: MARY SOTELO ([phone])[facility])[address] [place] [address] Monocytes (Bld) [#/Vol] 0.5 10*3/uL Normal 0.0-0.9 [facility] Comment on above: Performed By: #### L [id number] ####Typesetter Apprentice: MARY SOTELO ([phone])[facility])[address] [place] [address] Monocytes/100 WBC (Bld) 6.1 % Normal 5.0-13.0 [facility] Comment on above: Performed By: #### L [id number] ####Typesetter Apprentice: MARY SOTELO ([phone])[facility])[address] [place] [address] NEUTROPHILS ABSOLUTE 5.5 10*3/uL Normal 1.8-7.5 [facility] Comment on above: Performed By: #### L [id number] ####Typesetter Apprentice: MARY SOTELO ([phone])[facility] ([facility])[address] [place] [address] Neutrophils/100 WBC (Bld) 71.4 % Normal 38.0-82.0 [facility] Comment on above: Performed By: #### L [id number] ####Typesetter Apprentice: MARY SOTELO ([phone])[facility] ([facility])[address] [place] [address] NRBC 0.0 /100 WBCs Normal 0.0-2.0 [facility] Comment on above: Performed By: #### L [id number] ####Typesetter Apprentice: MARY SOTELO ([phone])[facility] ([facility])[address] [place] [address] Platelet mean volume (Bld) [Entitic vol] 10.5 fL Normal 9.0-12.7 [facility] Comment on above: Performed By: #### L [id number] ####Typesetter Apprentice: MARY SOTELO ([phone])[facility] ([facility])[address] [place] [address] [place] Platelets (Bld) [#/Vol] 108 10*3/uL Low 140-440 [facility] Comment on above: Performed By: #### L [id number] ####Typesetter Apprentice: MARY SOTELO ([phone])[facility] ([facility])[address] [place] [address] [place] RBC (Bld) [#/Vol] 2.81 10*6/uL Low 3.80-5.20 [facility] Comment on above: Performed By: #### L [id number] ####Typesetter Apprentice: MARY SOTELO ([phone])[facility] ([facility])[address] [place] [address] [place] WBC (Bld) [#/Vol] 7.7 10*3/uL Normal 3.6-10.7 [facility] Comment on above: Performed By: #### L [id number] ####Typesetter Apprentice: MARY SOTELO ([phone])[facility])[address] [place] [address] COMPLETE URINALYSISon 2023 BACTERIA (#/HPF) IN URINE Moderate Abnormal Negative [facility] Comment on above: Performed By: #### L [id number] ####Typesetter Apprentice: MARY SOTELO ([phone])[facility] ([facility])[address] [place] [address] BILIRUBIN, TOTAL PRESENCE IN URINE Negative Normal Negative [facility] Comment on above: Performed By: #### L [id number] ####Typesetter Apprentice: MARY SOTELO ([phone])[facility] ([facility])[address] [place] [address] Clarity (U) Extra Turbid Abnormal Clear [facility] Comment on above: Performed By: #### L [id number] ####Typesetter Apprentice: MARY SOTELO ([phone])[facility] ([facility])[address] [place] [address] Color (U) Yellow Normal Lt. Yellow [facility] Comment on above: Performed By: #### L [id number] ####Typesetter Apprentice: MARY SOTELO ([phone])[facility] ([facility])[address] [place] [address] Glucose (U) [Mass/Vol] 50 mg/dL Normal Normal (<70) [facility] Comment on above: Performed By: #### L [id number] ####Typesetter Apprentice: MARY SOTELO ([phone])[facility] ([facility])[address] [place] [address] HEMOGLOBIN PRESENCE IN URINE >1.0 Abnormal Negative [facility] Comment on above: Performed By: #### L [id number] ####Typesetter Apprentice: MARY SOTELO ([phone])[facility] ([facility])[address] [place] [address] HYALINE CASTS (#/LPF) IN URINE SEDIMENT BY MICROSCOPY Negative Normal Negative [facility] Comment on above: Performed By: #### L [id number] ####Typesetter Apprentice: MARY SOTELO ([phone])[facility])[address] [place] [address] Ketones Ql (U) Negative Normal Negative [facility] Comment on above: Performed By: #### L [id number] ####Typesetter Apprentice: MARY SOTELO ([phone])[facility] ([facility])[address] [place] [address] LEUKOCYTE ESTERASE PRESENCE IN URINE BY TEST STRIP 500 Bere/uL Abnormal Negative [facility] Comment on above: Performed By: #### L [id number] ####Typesetter Apprentice: MARY SOTELO ([phone])[facility])[address] [place] [address] NITRITE PRESENCE IN URINE Negative Normal Negative [facility] Comment on above: Performed By: #### L [id number] ####Typesetter Apprentice: MARY SOTELO ([phone])[facility] ([facility])[address] [place] [address] pH (U) 5.0 [pH] Normal 5.0-8.0 [facility] Comment on above: Performed By: #### L [id number] ####Typesetter Apprentice: MARY SOTELO ([phone])[facility] ([facility])[address] [place] [address] Protein (U) [Mass/Vol] 70 mg/dL Abnormal Negative [facility] Comment on above: Performed By: #### L [id number] ####Typesetter Apprentice: MARY SOTELO ([phone])[facility] ([facility])[address] [place] [address] [place] RBC (#/HPF) IN URINE SEDIMENT >100 Abnormal 0-2 [facility] Comment on above: Performed By: #### L [id number] ####Typesetter Apprentice: MARY SOTELO ([phone])[facility] ([facility])[address] [place] [address] [place] Specific gravity (U) [Rel density] 1.007 Normal 1.005-1.030 [facility] Comment on above: Performed By: #### L [id number] ####Typesetter Apprentice: MARY SOTELO ([phone])[facility] ([facility])[address] [place] [address] [place] SQUAMOUS EPITHELIAL CELLS (#/HPF) IN URINE SEDIMENT 3-5 Normal 3-5 [facility] Comment on above: Performed By: #### L [id number] ####Typesetter Apprentice: MARY SOTELO ([phone])[facility] ([facility])[address] [place] [address] [place] UROBILINOGEN (MG/DL) IN URINE Normal Normal Normal (0-1) [facility] Comment on above: Performed By: #### L [id number] ####Typesetter Apprentice: MARY SOTELO ([phone])[facility] ([facility])[address] [place] [address] [place] WBC (LEUKOCYTE) (#/HPF) IN URINE SEDIMENT >100 Abnormal 0-5 [facility] Comment on above: Performed By: #### L [id number] ####Typesetter Apprentice: MARY SOTELO ([phone])[facility] ([facility])[address] [place] [address] [place] WBC (LEUKOCYTE) CLUMPS (#/HPF) IN URINE SEDIMENT Many Abnormal Negative [facility] Comment on above: Performed By: #### L [id number] ####Typesetter Apprentice: MARY SOTELO ([phone])[facility] ([facility])[address] [place] [address] [place] YEAST (#/HPF) IN URINE Loaded Abnormal Negative [facility] Comment on above: Performed By: #### L [id number] ####Typesetter Apprentice: MARY SOTELO ([phone])[facility] ([facility])[address] [place] [address] [place] CREATININE, URINE, RANDOMon 08-09-2024 CREATININE, URINE 41.3 mg/dL Normal No Range [facility] Comment on above: Performed By: #### L [id number], [id number] ####Typesetter Apprentice: MARY SOTELO ([phone])[facility] ([facility])[address] [place] [address] [place] Creatinine (U) [Mass/Vol]on 08-09-2024 CREATININE, URINE 41.3 mg/dL No Range [facility]alt GLUCOSE, RANDOMon 08-09-2024 Glucose [Mass/Vol] 216 mg/dL High 70-100 [facility] Comment on above: Performed By: #### L [id number] ####Typesetter Apprentice: MARY SOTELO ([phone])[facility] ([facility])[address] [place] [address] Glucose (Bld) [Mass/Vol]on 1 Glucose [Mass/Vol] 216 mg/dL High 70 - 100 mg/dL [facility] Interpretation and review of laboratory results Abnormal [facility] IDNon 08-09-2024 IDN Normal [facility] IDN Normal [facility] Laboratory - Chemistry and C hemistry - challengeon 08-09-2024 Glucose [Mass/Vol] 164 mg/dL High 70 - 100 mg/dL [facility] Glucose [Mass/Vol] 264 mg/dL High 70 - 100 mg/dL [facility] Glucose [Mass/Vol] 246 mg/dL High 70 - 100 mg/dL [facility] Glucose [Mass/Vol] 153 mg/dL High 70 - 100 mg/dL [facility] Glucose [Mass/Vol] 144 mg/dL High 70 - 100 mg/dL [facility] Glucose [Mass/Vol] 115 mg/dL High 70 - 100 mg/dL [facility] Glucose [Mass/Vol] mg/dL Low 70 - 100 mg/dL [facility] Glucose [Mass/Vol] 83 mg/dL 70 - 100 mg/dL [facility] Glucose [Mass/Vol] 70 mg/dL 70 - 100 mg/dL [facility] Glucose [Mass/Vol] mg/dL Low 70 - 100 mg/dL [facility] Magnesium [Mass/Vol] 1.8 mg/dL 1.6 - 2 .3 mg/dL [facility] Laboratory - Urinalysison Protein (U) [Mass/Vol] 107 mg/dL High 0 - 12 mg/dL [facility] MAGNESIUMon 08-09-2024 Magnesium [Mass/Vol] 1.8 mg/dL Normal 1.6-2.3 [facility] Comment on above: Performed By: #### L [id number], [id number], LAB15 ####Typesetter Apprentice: MARY SOTELO ([phone])[facility] [place] [address] [place] Magnesium [Mass/Vol]on 08-09 Interpretation and review of laboratory results Normal [facility] Panel Informationon 08-09 Interpretation and review of laboratory results Abnormal [facility] Interpretation and review of laboratory results Abnormal [facility] Interpretation and review of laboratory results Abnormal [facility] Interpretation and review of laboratory results Abnormal [facility] Interpretation and review of laboratory results Abnormal [facility] Interpretation and review of laboratory results Abnormal [facility] Interpretation and review of laboratory results Abnormal [facility] Interpretation and review of laboratory results Abnormal [facility] Interpretation and review of laboratory results Normal [facility] Interpretation and review of laboratory results Normal [facility] Interpretation and review of laboratory results Abnormal [facility] Nursing Noteon 08-09-2024 Nursing Note Normal [facility] PHOSPHORUSon 08-09-2024 Phosphate [Mass/Vol] 4.1 mg/dL Normal 2.5-4.5 [facility] Comment on above: Performed By: #### L [id number], [id number], LAB15 ####Typesetter Apprentice: MARY SOTELO ([phone])[facility] [place] [address] [place] PROTEIN, URINE, RANDOMon Protein (U) [Mass/Vol] 107 mg/dL High 0-12 [facility] Comment on above: Performed By: #### L [id number], [id number] ####Typesetter Apprentice: MARY SOTELO ([phone])[facility] [place] [address] [place] Phosphate [Moles/Vol]on Interpretation and review of laboratory results Normal [facility] Phosphate [Mass/Vol] 4.1 mg/dL 2.5 - 4 .5 mg/dL [facility] Progress Noteon 08-09-2024 Progress Note Normal [facility] Progress Note Normal [facility] Progress Note Normal [facility] Progress Note Normal [facility] Progress Note Normal [facility] URINE CULTUREon 08-09-2024 Bacteria identified Cx Nom (U) Normal [facility] Comment on above: Performed By: #### L [id number] ####Typesetter Apprentice: MARY SOTELO ([phone])[facility] [place] [address] Urinalysis complete panel (U )on 08-09-2024 Bacteria LM.HPF (Urine sed) [#/Area] Moderate Abnormal Negative /HPF [facility] Bilirubin Ql (U) Negative Negative mg/dL [facility] Clarity (U) Extra Turbid Abnormal Clear [facility] h Color (U) Yellow Lt. Yellow [facility] Epithelial cells.squamous LM.HPF (Urine sed) [#/Area] 3-5 [facility] Glucose Ql (U) 50 mg/dL Normal (<70) [facility] Hemoglobin Ql (U) >1.0 Abnormal Negative mg/dL [facility] Hyaline casts Auto (Urine sed) [#/Area] Negative Negative /LPF [facility] Interpretation and review of laboratory results Abnormal [facility] Ketones (U) [Mass/Vol] Negative Negat pawan mg/dL [facility] Leukocyte clumps LM.HPF (Urine sed) [#/Area] Many Abnormal Negative /HPF [facility] Leukocyte esterase Test strip Ql (U) 500 Abnormal Negative Bere/uL [facility] Nitrite Ql (U) Negative Negative [facility] pH (U) 5.0 [pH] 5.0 - 8.0 pH [facility] Protein (U) [Mass/Vol] 70 mg/dL Abnormal Negative [facility] RBC LM.HPF (Urine sed) [#/Area] /[HPF] Abnormal [facility] Specific gravity (U) [Rel density] 1.007 1.005 - 1.030 [facility] Urobilinogen (U) [Mass/Vol] Normal Normal (0-1) mg/dL [facility] WBC LM.HPF (Urine sed) [#/Area] /[HPF] Abnormal [facility] Yeast.budding LM.HPF (Urine sed) [#/Area] Loaded Abnormal Negative /HPF [facility] ALBUMINon 08-08-2024 Albumin [Mass/Vol] 2.7 g/dL Low 3.5-5.0 [facility] Comment on above: Performed By: #### L AB45, [id number], LAB15, IPC651 ####Typesetter Apprentice: MARY SOTELO ([phone])[facility] ([facility])[address] [place] [address] BASIC METABOLIC PANELon Anion gap [Moles/Vol] 2 mmol/L Low 3-13 [facility] Comment on above: Performed By: #### L AB45, [id number], LAB15, SUC125 ####Typesetter Apprentice: MARY SOTELO ([phone])[facility] ([facility])[address] [place] [address] Calcium [Mass/Vol] 6.9 mg/dL Low 8.4-10.4 [facility] Comment on above: Performed By: #### L AB45, [id number], LAB15, ZGE224 ####Typesetter Apprentice: MARY SOTELO ([phone])[facility] ([facility])[address] [place] [address] [place] Chloride [Moles/Vol] 100 mmol/L Normal 98-107 [facility] Comment on above: Performed By: #### L AB45, [id number], LAB15, YMS504 ####Typesetter Apprentice: MARY SOTELO ([phone])[facility] ([facility])[address] [place] [address] [place] CO2 [Moles/Vol] 32 mmol/L High 22-30 [facility] Comment on above: Performed By: #### L AB45, [id number], LAB15, [id number] ####Typesetter Apprentice: MARY SOTELO ([phone])[facility] ([facility])[address] [place] [address] Creatinine [Mass/Vol] 1.51 mg/dL High 0.52-1.04 [facility] Comment on above: Performed By: #### L AB45, [id number], LAB15, XYA798 ####Typesetter Apprentice: MARY SOTELO ([phone])[facility])[address] [place] [address] [place] GLOMERULAR FILTRATION RATE ML/MIN/1.73 SQ M.PREDICTED 38.4 mL/min/1.73m*2 Low >60.0 [facility] Comment on above: Result Comment: Calc ulation based on the Chronic Kidney Disease Epidemiology Collaboration (CKD-EPI) equation refit without adjustment for race Performed By: #### L AB45, EEG105, LAB15, NXP522 ####Typesetter Apprentice: MARY SOTELO ([phone])[facility])[address] [place] [address] Glucose [Mass/Vol] 293 mg/dL High 70-100 [facility] Comment on above: Performed By: #### L AB45, [id number], LAB15, XMS711 ####Typesetter Apprentice: MARY SOTELO ([phone])[facility] ([facility])[address] [place] [address] Potassium [Moles/Vol] 3.7 mmol/L Normal 3.5-5.1 [facility] Comment on above: Performed By: #### L AB45, [id number], LAB15, ZLF601 ####Typesetter Apprentice: MARY SOTELO ([phone])[facility])[address] [place] [address] [place] Sodium [Moles/Vol] 134 mmol/L Low 135-145 [facility] Comment on above: Performed By: #### L AB45, [id number], LAB15, GRF994 ####Typesetter Apprentice: MARY SOTELO ([phone])[facility])[address] [place] [address] [place] Urea nitrogen [Mass/Vol] 14 mg/dL Normal 7-17 [facility] Comment on above: Performed By: #### L AB45, [id number], LAB15, KRA184 ####Typesetter Apprentice: MARY SOTELO ([phone])[address] Basic metabolic 1998 panelon 08-08-2024 Anion gap [Moles/Vol] 2 mmol/L Low 3 - 13 mmol/L [facility] Calcium [Mass/Vol] 6.9 mg/dL Low 8.4 - 10. 4 mg/dL [facility] Chloride [Moles/Vol] 100 mmol/L 98 - 10 7 mmol/L [facility] CO2 [Moles/Vol] 32 mmol/L High 22 - 30 mmol/L [facility] Creatinine [Mass/Vol] 1.51 mg/dL High 0.52 - 1.04 mg/dL [facility] GFR/1.73 sq M.predicted (S/P/Bld) [Vol rate/Area] 38.4 mL/min Low - PINF [facility] Glucose [Mass/Vol] 293 mg/dL High 70 - 100 mg/dL [facility] Potassium [Moles/Vol] 3.7 mmol/L 3.5 - 5.1 mmol/L [facility] Sodium [Moles/Vol] 134 mmol/L Low 135 - 145 mmol/L [facility] Urea nitrogen [Mass/Vol] 14 mg/dL 7 - 17 mg/dL [facility] CBC W Auto Differential pane l (Bld)on 08-08-2024 Basophils (Bld) [#/Vol] 0.0 10*3/uL 0.0 - 0.2 10*3/uL [facility] Basophils/100 WBC (Bld) 0.1 % 0.0 - 2.0 % [facility] Eosinophils (Bld) [#/Vol] 0.3 10*3/uL 0.0 - 0.5 10*3/uL [facility] Eosinophils/100 WBC (Bld) 4.0 % 0.0 - 6.0 % [facility] Erythrocyte distribution width (RBC) [Ratio] 17.2 % High 11.5 - 15.0 % [facility] Hematocrit (Bld) [Volume fraction] 28.9 % Low 35.0 - 47.0 % [facility] Hemoglobin (Bld) [Mass/Vol] 8.7 g/dL Low 11.7 - 16.0 g/dL [facility] Immature granulocytes (Bld) [#/Vol] 0.1 10*3/uL High NINF - 0.1 10*3/uL [facility] Immature granulocytes/100 WBC (Bld) 1.3 % 0.0 - 2.0 % [facility] Interpretation and review of laboratory results Abnormal [facility] IPF 3 [facility] Lymphocytes (Bld) [#/Vol] 0.9 10*3/uL Low 1.0 - 4.3 10*3/uL [facility] Lymphocytes/100 WBC (Bld) 11.8 % Low 15.0 - 45.0 % [facility] MCH (RBC) [Entitic mass] 28.8 pg 26.0 - 34.0 pg [facility] MCHC (RBC) [Mass/Vol] 30.1 % Low 30.5 - 36.0 % [facility] MCV (RBC) [Entitic vol] 95.7 fL 77.0 - 99.0 fL [facility] Monocytes (Bld) [#/Vol] 0.3 10*3/uL 0.0 - 0.9 10*3/uL [facility] Monocytes/100 WBC (Bld) 4.5 % Low 5.0 - 13.0 % [facility] Neutrophils (Bld) [#/Vol] 5.9 10*3/uL 1.8 - 7.5 10*3/uL [facility] Neutrophils/100 WBC (Bld) 78.3 % 38.0 - 82.0 % [facility] Nucleated RBC/100 WBC (Bld) [Ratio] 0.0 % [facility] Platelet mean volume (Bld) [Entitic vol] 10.8 fL 9.0 - 12.7 fL [facility] Platelets (Bld) [#/Vol] 118 10*3/uL Low 140 - 440 10*3/uL [facility] RBC (Bld) [#/Vol] 3.02 10*6/uL Low 3.80 - 5.2 0 10*6/uL [facility] WBC (Bld) [#/Vol] 7.6 10*3/uL 3.6 - 10.7 10*3/uL [facility] CBC WITH AUTO DIFFERENTIALon 08-08-2024 Basophils (Bld) [#/Vol] 0.0 10*3/uL Normal 0.0-0.2 [facility] Comment on above: Performed By: #### L [id number] ####Typesetter Apprentice: MARY SOTELO ([phone])[facility])[address] [place] [address] Basophils/100 WBC (Bld) 0.1 % Normal 0.0-2.0 [facility] Comment on above: Performed By: #### L [id number] ####Typesetter Apprentice: MARY SOTELO ([phone])[facility])[address] [place] [address] Eosinophils (Bld) [#/Vol] 0.3 10*3/uL Normal 0.0-0.5 [facility] Comment on above: Performed By: #### L [id number] ####Typesetter Apprentice: MARY SOTELO ([phone])[address] Eosinophils/100 WBC (Bld) 4.0 % Normal 0.0-6.0 [facility] Comment on above: Performed By: #### L [id number] ####Typesetter Apprentice: MARY SOTELO ([phone])[address] Erythrocyte distribution width (RBC) [Ratio] 17.2 % High 11.5-15.0 [facility] Comment on above: Performed By: #### L [id number] ####Typesetter Apprentice: MARY SOTELO ([phone])[address] Hematocrit (Bld) [Volume fraction] 28.9 % Low 35.0-47.0 [facility] Comment on above: Performed By: #### L [id number] ####Typesetter Apprentice: MARY SOTELO ([phone])[address] Hemoglobin (Bld) [Mass/Vol] 8.7 g/dL Low 11.7-16.0 [facility] Comment on above: Performed By: #### L [id number] ####Typesetter Apprentice: MARY SOTELO ([phone])[facility])[address] [place] [address] IMMATURE GRANS % 1.3 % Normal 0.0-2.0 [facility] Comment on above: Performed By: #### L [id number] ####Typesetter Apprentice: MARY SOTELO ([phone])[facility])[address] [place] [address] IMMATURE GRANS ABSOLUTE 0.1 10*3/uL High <0.1 [facility] Comment on above: Performed By: #### L [id number] ####Typesetter Apprentice: MARY SOTELO ([phone])[address] IPF 3 Normal [facility] Comment on above: Performed By: #### L [id number] ####Typesetter Apprentice: MARY SOTELO ([phone])[facility])[address] [place] [address] Lymphocytes (Bld) [#/Vol] 0.9 10*3/uL Low 1.0-4.3 [facility] Comment on above: Performed By: #### L [id number] ####Typesetter Apprentice: MARY SOTELO ([phone])[address] Lymphocytes/100 WBC (Bld) 11.8 % Low 15.0-45.0 [facility] Comment on above: Performed By: #### L [id number] ####Typesetter Apprentice: MARY SOTELO ([phone])[facility])[address] [place] [address] MCH (RBC) [Entitic mass] 28.8 pg Normal 26.0-34.0 [facility] Comment on above: Performed By: #### L [id number] ####Typesetter Apprentice: MARY SOTELO ([phone])[facility])[address] [place] [address] MCHC 30.1 % Low 30.5-36.0 [facility] Comment on above: Performed By: #### L [id number] ####Typesetter Apprentice: MARY SOTELO ([phone])[facility])[address] [place] [address] MCV (RBC) [Entitic vol] 95.7 fL Normal 77.0-99.0 [facility] Comment on above: Performed By: #### L [id number] ####Typesetter Apprentice: MARY SOTELO ([phone])[facility] ([facility])[address] [place] [address] Monocytes (Bld) [#/Vol] 0.3 10*3/uL Normal 0.0-0.9 [facility] Comment on above: Performed By: #### L [id number] ####Typesetter Apprentice: MARY SOTELO ([phone])[facility] ([facility])[address] [place] [address] Monocytes/100 WBC (Bld) 4.5 % Low 5.0-13.0 [facility] Comment on above: Performed By: #### L [id number] ####Typesetter Apprentice: MARY SOTELO ([phone])[facility])[address] [place] [address] NEUTROPHILS ABSOLUTE 5.9 10*3/uL Normal 1.8-7.5 [facility] Comment on above: Performed By: #### L [id number] ####Typesetter Apprentice: MARY SOTELO ([phone])[facility])[address] [place] [address] Neutrophils/100 WBC (Bld) 78.3 % Normal 38.0-82.0 [facility] Comment on above: Performed By: #### L [id number] ####Typesetter Apprentice: MARY SOTELO ([phone])[facility])[address] [place] [address] NRBC 0.0 /100 WBCs Normal 0.0-2.0 [facility] Comment on above: Performed By: #### L [id number] ####Typesetter Apprentice: MARY SOTELO ([phone])[facility] ([facility])[address] [place] [address] Platelet mean volume (Bld) [Entitic vol] 10.8 fL Normal 9.0-12.7 [facility] Comment on above: Performed By: #### L [id number] ####Typesetter Apprentice: MARY SOTELO ([phone])[facility] ([facility])[address] [place] [address] Platelets (Bld) [#/Vol] 118 10*3/uL Low 140-440 [facility] Comment on above: Performed By: #### L [id number] ####Typesetter Apprentice: MARY SOTELO ([phone])[facility] ([facility])[address] [place] [address] RBC (Bld) [#/Vol] 3.02 10*6/uL Low 3.80-5.20 [facility] Comment on above: Performed By: #### L [id number] ####Typesetter Apprentice: MARY SOTELO ([phone])[facility] ([facility])[address] [place] [address] WBC (Bld) [#/Vol] 7.6 10*3/uL Normal 3.6-10.7 [facility] Comment on above: Performed By: #### L [id number] ####Typesetter Apprentice: MARY SOTELO ([phone])[facility] ([facility])[address] [place] [address] IDNon 08-08-2024 IDN Normal [facility] IDN Normal [facility] Laboratory - Chemistry and C hemistry - challengeon 08-08-2024 Glucose [Mass/Vol] 218 mg/dL High 70 - 100 mg/dL [facility] Glucose [Mass/Vol] 245 mg/dL High 70 - 100 mg/dL [facility] Glucose [Mass/Vol] 334 mg/dL High 70 - 100 mg/dL [facility] Glucose [Mass/Vol] 314 mg/dL High 70 - 100 mg/dL [facility] Albumin [Mass/Vol] 2.7 g/dL Low 3.5 - 5.0 g/dL [facility] Magnesium [Mass/Vol] 1.7 mg/dL 1.6 - 2 .3 mg/dL [facility] MAGNESIUMon 08-08-2024 Magnesium [Mass/Vol] 1.7 mg/dL Normal 1.6-2.3 [facility] Comment on above: Performed By: #### L AB45, [id number], LAB15, [id number] ####Typesetter Apprentice: MARY SOTELO ([phone])[facility] ([facility])[address] [place] [address] [place] Magnesium [Mass/Vol]on 08-08 Interpretation and review of laboratory results Normal [facility] No Panel Informationon 08-08 Interpretation and review of laboratory results Abnormal [facility] Interpretation and review of laboratory results Abnormal [facility] Interpretation and review of laboratory results Abnormal [facility] Interpretation and review of laboratory results Abnormal [facility] Interpretation and review of laboratory results Abnormal [facility] Interpretation and review of laboratory results Abnormal [facility] PHOSPHORUSon 08-08-2024 Phosphate [Mass/Vol] 2.1 mg/dL Low 2.5-4.5 [facility] Comment on above: Performed By: #### L AB45, [id number], LAB15, [id number] ####Typesetter Apprentice: MARY SOTELO ([phone])[facility] ([facility])[address] [place] [address] [place] Phosphate [Moles/Vol]on Phosphate [Mass/Vol] 2.1 mg/dL Low 2.5 - 4 .5 mg/dL [facility] Progress Noteon 08-08-2024 Progress Note Normal [facility] Progress Note Normal [facility] Progress Note Normal [facility] XR CHEST 1 VIEWon 08-08-2024 XR CHEST 1 VIEW Normal [facility] XR Chest Single viewon 08-08 [facility] Radiology Study observation (narrative) [facility] XR Chest Single viewOrdered By: Kalia Foy on 08-08-2024 [facility] Work Phone: BASIC METABOLIC PANELon 100 Anion gap [Moles/Vol] 1 mmol/L Low 3-13 [facility] Comment on above: Performed By: #### L AB103, [id number], LAB15 ####Typesetter Apprentice: MARY SOTELO ([phone])[facility] [place] [address] Calcium [Mass/Vol] 6.9 mg/dL Low 8.4-10.4 [facility] Comment on above: Performed By: #### L AB103, [id number], LAB15 ####Typesetter Apprentice: MARY SOTELO ([phone])[facility] ([facility])[address] [place] [address] Chloride [Moles/Vol] 102 mmol/L Normal 98-107 [facility] Comment on above: Performed By: #### L AB103, [id number], LAB15 ####Typesetter Apprentice: MARY SOTELO ([phone])[facility] [place] [address] CO2 [Moles/Vol] 31 mmol/L High 22-30 [facility] Comment on above: Performed By: #### L AB103, [id number], LAB15 ####Typesetter Apprentice: MARY SOTELO ([phone])[facility] ([facility])[address] [place] [address] Creatinine [Mass/Vol] 2.07 mg/dL High 0.52-1.04 [facility] Comment on above: Performed By: #### L AB103, [id number], LAB15 ####Typesetter Apprentice: MARY SOTELO ([phone])[facility] ([facility])[address] [place] [address] GLOMERULAR FILTRATION RATE ML/MIN/1.73 SQ M.PREDICTED 26.3 mL/min/1.73m*2 Low >60.0 [facility] Comment on above: Result Comment: Calc ulation based on the Chronic Kidney Disease Epidemiology Collaboration (CKD-EPI) equation refit without adjustment for race Performed By: #### L AB103, QHE033, LAB15 ####Typesetter Apprentice: MARY SOTELO ([phone])[facility])[address] [place] [address] Glucose [Mass/Vol] 141 mg/dL High 70-100 [facility] Comment on above: Performed By: #### L AB103, VLY151, LAB15 ####Typesetter Apprentice: MARY SOTELO ([phone])[facility])[address] [place] [address] Potassium [Moles/Vol] 4.2 mmol/L Normal 3.5-5.1 [facility] Comment on above: Performed By: #### L AB103, [id number], LAB15 ####Typesetter Apprentice: MARY SOTELO ([phone])[facility])[address] [place] [address] Sodium [Moles/Vol] 134 mmol/L Low 135-145 [facility] Comment on above: Performed By: #### L AB103, [id number], LAB15 ####Typesetter Apprentice: MARY SOTELO ([phone])[facility] ([facility])[address] [place] [address] Urea nitrogen [Mass/Vol] 23 mg/dL High 7-17 [facility] Comment on above: Performed By: #### L AB103, [id number], LAB15 ####Typesetter Apprentice: MARY SOTELO ([phone])[facility])[address] [place] [address] Basic metabolic 1998 panelon 08-07-2024 Anion gap [Moles/Vol] 1 mmol/L Low 3 - 13 mmol/L [facility] Calcium [Mass/Vol] 6.9 mg/dL Low 8.4 - 10. 4 mg/dL [facility] Chloride [Moles/Vol] 102 mmol/L 98 - 10 7 mmol/L [facility] CO2 [Moles/Vol] 31 mmol/L High 22 - 30 mmol/L [facility] Creatinine [Mass/Vol] 2.07 mg/dL High 0.52 - 1.04 mg/dL [facility] GFR/1.73 sq M.predicted (S/P/Bld) [Vol rate/Area] 26.3 mL/min Low - PINF [facility] Glucose [Mass/Vol] 141 mg/dL High 70 - 100 mg/dL [facility] Interpretation and review of laboratory results Abnormal [facility] Potassium [Moles/Vol] 4.2 mmol/L 3.5 - 5.1 mmol/L [facility] Sodium [Moles/Vol] 134 mmol/L Low 135 - 145 mmol/L [facility] Urea nitrogen [Mass/Vol] 23 mg/dL High 7 - 17 mg/dL [facility] CBC W Auto Differential pane l (Bld)Ordered By: Nicole Lakhani on 08-07-2024 Basophils (Bld) [#/Vol] 0.0 10*3/uL 0.0 - 0.2 10*3/uL [facility] Basophils/100 WBC (Bld) 0.1 % 0.0 - 2.0 % [facility] Eosinophils (Bld) [#/Vol] 0.5 10*3/uL 0.0 - 0.5 10*3/uL [facility] Eosinophils/100 WBC (Bld) 5.9 % 0.0 - 6.0 % [facility] Erythrocyte distribution width (RBC) [Ratio] 17.4 % High 11.5 - 15.0 % [facility] Hematocrit (Bld) [Volume fraction] 26.7 % Low 35.0 - 47.0 % [facility] Hemoglobin (Bld) [Mass/Vol] 8.1 g/dL Low 11.7 - 16.0 g/dL [facility] Immature granulocytes (Bld) [#/Vol] 0.1 10*3/uL High NINF - 0.1 10*3/uL [facility] Immature granulocytes/100 WBC (Bld) 1.0 % 0.0 - 2.0 % [facility] Interpretation and review of laboratory results Abnormal [facility] IPF 2 [facility] Lymphocytes (Bld) [#/Vol] 1.4 10*3/uL 1.0 - 4.3 10*3/uL [facility] Lymphocytes/100 WBC (Bld) 17.9 % 15.0 - 45.0 % [facility] MCH (RBC) [Entitic mass] 28.6 pg 26.0 - 34.0 pg [facility] MCHC (RBC) [Mass/Vol] 30.3 % Low 30.5 - 36.0 % [facility] MCV (RBC) [Entitic vol] 94.3 fL 77.0 - 99.0 fL [facility] Monocytes (Bld) [#/Vol] 0.6 10*3/uL 0.0 - 0.9 10*3/uL [facility] Monocytes/100 WBC (Bld) 7.2 % 5.0 - 13.0 % [facility] Neutrophils (Bld) [#/Vol] 5.5 10*3/uL 1.8 - 7.5 10*3/uL [facility] Neutrophils/100 WBC (Bld) 67.9 % 38.0 - 82.0 % [facility] Nucleated RBC/100 WBC (Bld) [Ratio] 0.0 % [facility] Platelet mean volume (Bld) [Entitic vol] 9.8 fL 9.0 - 12.7 fL [facility] Platelets (Bld) [#/Vol] 128 10*3/uL Low 140 - 440 10*3/uL [facility] RBC (Bld) [#/Vol] 2.83 10*6/uL Low 3.80 - 5.2 0 10*6/uL [facility] WBC (Bld) [#/Vol] 8.0 10*3/uL 3.6 - 10.7 10*3/uL [facility] CBC WITH AUTO DIFFERENTIALon 08-07-2024 Basophils (Bld) [#/Vol] 0.0 10*3/uL Normal 0.0-0.2 [facility] Comment on above: Performed By: #### L [id number] ####Typesetter Apprentice: MARY SOTELO ([phone])[address] Basophils/100 WBC (Bld) 0.1 % Normal 0.0-2.0 [facility] Comment on above: Performed By: #### L [id number] ####Typesetter Apprentice: MARY SOTELO ([phone])[facility])[address] [place] [address] Eosinophils (Bld) [#/Vol] 0.5 10*3/uL Normal 0.0-0.5 [facility] Comment on above: Performed By: #### L [id number] ####Typesetter Apprentice: MARY SOTELO ([phone])[facility])[address] [place] [address] Eosinophils/100 WBC (Bld) 5.9 % Normal 0.0-6.0 [facility] Comment on above: Performed By: #### L [id number] ####Typesetter Apprentice: MARY SOTELO ([phone])[facility])[address] [place] [address] Erythrocyte distribution width (RBC) [Ratio] 17.4 % High 11.5-15.0 [facility] Comment on above: Performed By: #### L [id number] ####Typesetter Apprentice: MARY SOTELO ([phone])[address] Hematocrit (Bld) [Volume fraction] 26.7 % Low 35.0-47.0 [facility] Comment on above: Performed By: #### L [id number] ####Typesetter Apprentice: MARY SOTELO ([phone])[address] Hemoglobin (Bld) [Mass/Vol] 8.1 g/dL Low 11.7-16.0 [facility] Comment on above: Performed By: #### L [id number] ####Typesetter Apprentice: MARY SOTELO ([phone])[address] IMMATURE GRANS % 1.0 % Normal 0.0-2.0 [facility] Comment on above: Performed By: #### L [id number] ####Typesetter Apprentice: MARY SOTELO ([phone])[address] IMMATURE GRANS ABSOLUTE 0.1 10*3/uL High <0.1 [facility] Comment on above: Performed By: #### L [id number] ####Typesetter Apprentice: MARY SOTELO ([phone])[facility])[address] [place] [address] [place] IPF 2 Normal [facility] Comment on above: Performed By: #### L [id number] ####Typesetter Apprentice: MARY SOTELO ([phone])[facility])[address] [place] [address] Lymphocytes (Bld) [#/Vol] 1.4 10*3/uL Normal 1.0-4.3 [facility] Comment on above: Performed By: #### L [id number] ####Typesetter Apprentice: MARY SOTELO ([phone])[facility])[address] [place] [address] Lymphocytes/100 WBC (Bld) 17.9 % Normal 15.0-45.0 [facility] Comment on above: Performed By: #### L [id number] ####Typesetter Apprentice: MARY SOTELO ([phone])[facility])[address] [place] [address] MCH (RBC) [Entitic mass] 28.6 pg Normal 26.0-34.0 [facility] Comment on above: Performed By: #### L [id number] ####Typesetter Apprentice: MARY SOTELO ([phone])[facility])[address] [place] [address] MCHC 30.3 % Low 30.5-36.0 [facility] Comment on above: Performed By: #### L [id number] ####Typesetter Apprentice: MARY SOTELO ([phone])[facility])[address] [place] [address] MCV (RBC) [Entitic vol] 94.3 fL Normal 77.0-99.0 [facility] Comment on above: Performed By: #### L [id number] ####Typesetter Apprentice: MARY SOTELO ([phone])[facility])[address] [place] [address] Monocytes (Bld) [#/Vol] 0.6 10*3/uL Normal 0.0-0.9 [facility] Comment on above: Performed By: #### L [id number] ####Typesetter Apprentice: MARY SOTELO ([phone])[facility] ([facility])[address] [place] [address] Monocytes/100 WBC (Bld) 7.2 % Normal 5.0-13.0 [facility] Comment on above: Performed By: #### L [id number] ####Typesetter Apprentice: MARY SOTELO ([phone])[facility] ([facility])[address] [place] [address] NEUTROPHILS ABSOLUTE 5.5 10*3/uL Normal 1.8-7.5 [facility] Comment on above: Performed By: #### L [id number] ####Typesetter Apprentice: MARY SOTELO ([phone])[facility] ([facility])[address] [place] [address] Neutrophils/100 WBC (Bld) 67.9 % Normal 38.0-82.0 [facility] Comment on above: Performed By: #### L [id number] ####Typesetter Apprentice: MARY SOTELO ([phone])[facility] ([facility])[address] [place] [address] NRBC 0.0 /100 WBCs Normal 0.0-2.0 [facility] Comment on above: Performed By: #### L [id number] ####Typesetter Apprentice: MARY SOTELO ([phone])[facility] ([facility])[address] [place] [address] Platelet mean volume (Bld) [Entitic vol] 9.8 fL Normal 9.0-12.7 [facility] Comment on above: Performed By: #### L [id number] ####Typesetter Apprentice: MARY SOTELO ([phone])[facility] ([facility])[address] [place] [address] Platelets (Bld) [#/Vol] 128 10*3/uL Low 140-440 [facility] Comment on above: Performed By: #### L [id number] ####Typesetter Apprentice: MARY SOTELO ([phone])[facility] ([facility])[address] [place] [address] RBC (Bld) [#/Vol] 2.83 10*6/uL Low 3.80-5.20 [facility] Comment on above: Performed By: #### L [id number] ####Typesetter Apprentice: MARY SOTELO ([phone])[facility] ([facility])[address] [place] [address] WBC (Bld) [#/Vol] 8.0 10*3/uL Normal 3.6-10.7 [facility] Comment on above: Performed By: #### L [id number] ####Typesetter Apprentice: MARY SOTELO ([phone])[facility] ([facility])[address] [place] [address] IDNon 08-07-2024 IDN Normal [facility] IDN Normal [facility] Laboratory - Chemistry and C hemistry - challengeon 08-07-2024 Glucose [Mass/Vol] 176 mg/dL High 70 - 100 mg/dL [facility] Glucose [Mass/Vol] 283 mg/dL High 70 - 100 mg/dL [facility] Glucose [Mass/Vol] 249 mg/dL High 70 - 100 mg/dL [facility] Glucose [Mass/Vol] 179 mg/dL High 70 - 100 mg/dL [facility] Magnesium [Mass/Vol] 1.9 mg/dL 1.6 - 2 .3 mg/dL [facility] MAGNESIUMon 08-07-2024 Magnesium [Mass/Vol] 1.9 mg/dL Normal 1.6-2.3 [facility] Comment on above: Performed By: #### L [id number], [id number], LAB15 ####Typesetter Apprentice: MARY SOTELO ([phone])[facility] ([facility])[address] [place] [address] No Panel Informationon 08-07 Interpretation and review of laboratory results Abnormal [facility] Interpretation and review of laboratory results Abnormal [facility] Interpretation and review of laboratory results Abnormal [facility] Interpretation and review of laboratory results Abnormal [facility] Interpretation and review of laboratory results Normal [facility] Nursing Noteon 08-07-2024 Nursing Note Normal [facility] PHOSPHORUSon 08-07-2024 Phosphate [Mass/Vol] 3.7 mg/dL Normal 2.5-4.5 [facility] Comment on above: Performed By: #### L [id number], [id number], LAB15 ####Typesetter Apprentice: MARY SOTELO ([phone])[facility] [place] [address] [place] Phosphate [Moles/Vol]on Phosphate [Mass/Vol] 3.7 mg/dL 2.5 - 4 .5 mg/dL [facility] Progress Noteon 08-07-2024 Progress Note Normal [facility] Progress Note Normal [facility] RESPIRATORY PATHOGENS PANEL BY PCRon 08-07-2024 RESPIRATORY PATHOGENS PANEL BY PCR Normal [facility] Comment on above: Performed By: #### L [id number] ####Typesetter Apprentice: MARY SOTELO ([phone])[facility] [place] [address] Respiratory pathogens DNA an d RNA panel MARISA+non-probe (Nph)on 08-07-2024 Adenovirus Not detected Not Detected [facility] B. pertussis DNA MARISA+probe Ql (Unsp spec) Not detected Not Detected [facility] Bordetella parapertussis Not detected Not Detected [facility] Chlamydia pneumoniae Not detected Not Detected [facility] Coronavirus 229E Not detected Not Detected [facility] Coronavirus HKU1 Not detected Not Detected [facility] Coronavirus NL63 Not detected Not Detected [facility] Coronavirus OC43 Not detected Not Detected [facility] FLUAV RNA MARISA+non-probe Ql (Nph) Not detected Not Detected [facility] FLUBV RNA MARISA+non-probe Ql (Nph) Not detected Not Detected [facility] Human Metapneumovirus Not detected Not Detected [facility] Human Rhinovirus/Enterovirus Not detected Not Detected [facility] Interpretation and review of laboratory results Normal [facility] Mycoplasma pneumoniae Not detected Not Detected [facility] Parainfluenza 1 Not detected Not Detected [facility] Parainfluenza 2 Not detected Not Detected [facility] Parainfluenza 3 Not detected Not Detected [facility] Parainfluenza 4 Not detected Not Detected [facility] Respiratory Syncytial Virus Not detected Not Detected [facility] SARS-CoV-2 (COVID-19) RNA MARISA+non-probe Ql (Nph) Not detected Not Detected [facility] BASIC METABOLIC PANELon 10-0 Anion gap [Moles/Vol] 2 mmol/L Low 3-13 [facility] Comment on above: Performed By: #### L AB103, LAB15, [id number] ####Typesetter Apprentice: MARY SOTELO ([phone])[facility])[address] [place] [address] Calcium [Mass/Vol] 7.4 mg/dL Low 8.4-10.4 [facility] Comment on above: Performed By: #### L AB103, LAB15, [id number] ####Typesetter Apprentice: MARY SOTELO ([phone])[facility] [place] [address] [place] Chloride [Moles/Vol] 99 mmol/L Normal 98-107 [facility] Comment on above: Performed By: #### L AB103, LAB15, [id number] ####Typesetter Apprentice: MARY SOTELO ([phone])[facility] ([facility])[address] [place] [address] [place] CO2 [Moles/Vol] 32 mmol/L High 22-30 [facility] Comment on above: Performed By: #### L AB103, LAB15, [id number] ####Typesetter Apprentice: MARY SOTELO ([phone])[facility] ([facility])[address] [place] [address] [place] Creatinine [Mass/Vol] 1.40 mg/dL High 0.52-1.04 [facility] Comment on above: Performed By: #### L AB103, LAB15, [id number] ####Typesetter Apprentice: MARY SOTELO ([phone])[facility] [address] GLOMERULAR FILTRATION RATE ML/MIN/1.73 SQ M.PREDICTED 42.1 mL/min/1.73m*2 Low >60.0 [facility] Comment on above: Result Comment: Calc ulation based on the Chronic Kidney Disease Epidemiology Collaboration (CKD-EPI) equation refit without adjustment for race Performed By: #### L AB103, LAB15, [id number] ####Typesetter Apprentice: MARY SOTELO ([phone])[facility])[address] [place] [address] Glucose [Mass/Vol] 184 mg/dL High 70-100 [facility] Comment on above: Performed By: #### L AB103, LAB15, [id number] ####Typesetter Apprentice: MARY SOTELO ([phone])[address] Potassium [Moles/Vol] 3.1 mmol/L Low 3.5-5.1 [facility] Comment on above: Performed By: #### L AB103, LAB15, [id number] ####Typesetter Apprentice: MARY SOTELO ([phone])[address] Sodium [Moles/Vol] 133 mmol/L Low 135-145 [facility] Comment on above: Performed By: #### L AB103, LAB15, [id number] ####Typesetter Apprentice: MARY SOTELO ([phone])[address] Urea nitrogen [Mass/Vol] 16 mg/dL Normal 7-17 [facility] Comment on above: Performed By: #### L AB103, LAB15, [id number] ####Typesetter Apprentice: MARY SOTELO ([phone])[address] BLOOD TYPE AND SCREEN GELon 08-06-2024 ABO GROUPING O Normal [facility] Comment on above: Performed By: #### L [id number] ####Typesetter Apprentice: MARY [id number])[facility] ([facility])[address] RH TYPE IN BLOOD Positive Normal [facility] Comment on above: Performed By: #### L [id number] ####Typesetter Apprentice: MARY SOTELO ([phone])[facility] ([facility])[address] [place] [address] Basic metabolic 1998 panelon 08-06-2024 Anion gap [Moles/Vol] 2 mmol/L Low 3 - 13 mmol/L [facility] Calcium [Mass/Vol] 7.4 mg/dL Low 8.4 - 10. 4 mg/dL [facility] Chloride [Moles/Vol] 99 mmol/L 98 - 10 7 mmol/L [facility] CO2 [Moles/Vol] 32 mmol/L High 22 - 30 mmol/L [facility] Creatinine [Mass/Vol] 1.40 mg/dL High 0.52 - 1.04 mg/dL [facility] GFR/1.73 sq M.predicted (S/P/Bld) [Vol rate/Area] 42.1 mL/min Low - PINF [facility] Glucose [Mass/Vol] 184 mg/dL High 70 - 100 mg/dL [facility] Interpretation and review of laboratory results Abnormal [facility] Potassium [Moles/Vol] 3.1 mmol/L Low 3.5 - 5.1 mmol/L [facility] Sodium [Moles/Vol] 133 mmol/L Low 135 - 145 mmol/L [facility] Urea nitrogen [Mass/Vol] 16 mg/dL 7 - 17 mg/dL [facility] Blood type and Crossmatch pa eunice (Bld)on 08-06-2024 ABO group Nom (Bld) O [facility] Blood group antibody screen GEL Ql Negative [facility] D Ag Ql (RBC) [facility] [place] Per nephro - UMA. Ho pe to recover . Line is tunneled . Nephrology updated on plans to work on out pt and placement . Normal [facility] [place] Normal [facility] Normal [facility] Normal [facility] Normal [facility] CBC W Auto Differential pane l (Bld)on 08-06-2024 Basophils (Bld) [#/Vol] 0.0 10*3/uL 0.0 - 0.2 10*3/uL [facility] Basophils/100 WBC (Bld) 0.2 % 0.0 - 2.0 % [facility] Eosinophils (Bld) [#/Vol] 0.4 10*3/uL 0.0 - 0.5 10*3/uL [facility] Eosinophils/100 WBC (Bld) 6.6 % High 0.0 - 6.0 % [facility] Erythrocyte distribution width (RBC) [Ratio] 17.8 % High 11.5 - 15.0 % [facility] Hematocrit (Bld) [Volume fraction] 21.6 % Low 35.0 - 47.0 % [facility] Hemoglobin (Bld) [Mass/Vol] 6.6 g/dL Critically low 11.7 - 16.0 g/dL [facility] Immature granulocytes (Bld) [#/Vol] 0.1 10*3/uL High NINF - 0.1 10*3/uL [facility] Immature granulocytes/100 WBC (Bld) 0.8 % 0.0 - 2.0 % [facility] Interpretation and review of laboratory results Abnormal [facility] IPF 3 [facility] Lymphocytes (Bld) [#/Vol] 1.2 10*3/uL 1.0 - 4.3 10*3/uL [facility] Lymphocytes/100 WBC (Bld) 17.9 % 15.0 - 45.0 % [facility] MCH (RBC) [Entitic mass] 28.4 pg 26.0 - 34.0 pg [facility] MCHC (RBC) [Mass/Vol] 30.6 % 30.5 - 36.0 % [facility] MCV (RBC) [Entitic vol] 93.1 fL 77.0 - 99.0 fL [facility] Monocytes (Bld) [#/Vol] 0.5 10*3/uL 0.0 - 0.9 10*3/uL [facility] Monocytes/100 WBC (Bld) 7.2 % 5.0 - 13.0 % [facility] Neutrophils (Bld) [#/Vol] 4.4 10*3/uL 1.8 - 7.5 10*3/uL [facility] Neutrophils/100 WBC (Bld) 67.3 % 38.0 - 82.0 % [facility] Nucleated RBC/100 WBC (Bld) [Ratio] 0.0 % [facility] Platelet mean volume (Bld) [Entitic vol] 10.6 fL 9.0 - 12.7 fL [facility] Platelets (Bld) [#/Vol] 120 10*3/uL Low 140 - 440 10*3/uL [facility] RBC (Bld) [#/Vol] 2.32 10*6/uL Low 3.80 - 5.2 0 10*6/uL [facility] WBC (Bld) [#/Vol] 6.5 10*3/uL 3.6 - 10.7 10*3/uL [facility] CBC WITH AUTO DIFFERENTIALon 08-06-2024 Basophils (Bld) [#/Vol] 0.0 10*3/uL Normal 0.0-0.2 [facility] Comment on above: Performed By: #### L [id number] ####Typesetter Apprentice: MARY SOTELO ([phone])[address] Basophils/100 WBC (Bld) 0.2 % Normal 0.0-2.0 [facility] Comment on above: Performed By: #### L [id number] ####Typesetter Apprentice: MARY SOTELO ([phone])[facility])[address] [place] [address] [place] Eosinophils (Bld) [#/Vol] 0.4 10*3/uL Normal 0.0-0.5 [facility] Comment on above: Performed By: #### L [id number] ####Typesetter Apprentice: MARY SOTELO ([phone])[facility])[address] [place] [address] [place] Eosinophils/100 WBC (Bld) 6.6 % High 0.0-6.0 [facility] Comment on above: Performed By: #### L [id number] ####Typesetter Apprentice: MARY [phone])[facility])[address] [place] [address] Erythrocyte distribution width (RBC) [Ratio] 17.8 % High 11.5-15.0 [facility] Comment on above: Performed By: #### L [id number] ####Typesetter Apprentice: MARY SOTELO ([phone])[facility])[address] [place] [address] Hematocrit (Bld) [Volume fraction] 21.6 % Low 35.0-47.0 [facility] Comment on above: Performed By: #### L [id number] ####Typesetter Apprentice: MARY SOTELO ([phone])[facility])[address] [place] [address] Hemoglobin (Bld) [Mass/Vol] 6.6 g/dL Critically low 11.7-16.0 [facility] Comment on above: Performed By: #### L [id number] ####Typesetter Apprentice: MARY SOTELO ([phone])[facility])[address] [place] [address] IMMATURE GRANS % 0.8 % Normal 0.0-2.0 [facility] Comment on above: Performed By: #### L [id number] ####Typesetter Apprentice: MARY SOTELO ([phone])[facility])[address] [place] [address] IMMATURE GRANS ABSOLUTE 0.1 10*3/uL High <0.1 [facility] Comment on above: Performed By: #### L [id number] ####Typesetter Apprentice: MARY SOTELO ([phone])[facility])[address] [place] [address] [place] IPF 3 Normal [facility] Comment on above: Performed By: #### L [id number] ####Typesetter Apprentice: MARY SOTELO ([phone])[facility])[address] [place] [address] Lymphocytes (Bld) [#/Vol] 1.2 10*3/uL Normal 1.0-4.3 [facility] Comment on above: Performed By: #### L [id number] ####Typesetter Apprentice: MARY SOTELO ([phone])[facility])[address] [place] [address] Lymphocytes/100 WBC (Bld) 17.9 % Normal 15.0-45.0 [facility] Comment on above: Performed By: #### L [id number] ####Typesetter Apprentice: MARY SOTELO ([phone])[facility])[address] [place] [address] MCH (RBC) [Entitic mass] 28.4 pg Normal 26.0-34.0 [facility] Comment on above: Performed By: #### L [id number] ####Typesetter Apprentice: MARY SOTELO ([phone])[facility])[address] [place] [address] MCHC 30.6 % Normal 30.5-36.0 [facility] Comment on above: Performed By: #### L [id number] ####Typesetter Apprentice: MARY SOTELO ([phone])[facility])[address] [place] [address] MCV (RBC) [Entitic vol] 93.1 fL Normal 77.0-99.0 [facility] Comment on above: Performed By: #### L [id number] ####Typesetter Apprentice: MARY SOTELO ([phone])[facility])[address] [place] [address] Monocytes (Bld) [#/Vol] 0.5 10*3/uL Normal 0.0-0.9 [facility] Comment on above: Performed By: #### L [id number] ####Typesetter Apprentice: MARY SOTELO ([phone])[facility])[address] [place] [address] Monocytes/100 WBC (Bld) 7.2 % Normal 5.0-13.0 [facility] Comment on above: Performed By: #### L [id number] ####Typesetter Apprentice: MARY SOTELO ([phone])[facility] ([facility])[address] [place] [address] NEUTROPHILS ABSOLUTE 4.4 10*3/uL Normal 1.8-7.5 [facility] Comment on above: Performed By: #### L [id number] ####Typesetter Apprentice: MARY SOTELO ([phone])[facility] ([facility])[address] [place] [address] Neutrophils/100 WBC (Bld) 67.3 % Normal 38.0-82.0 [facility] Comment on above: Performed By: #### L [id number] ####Typesetter Apprentice: MARY SOTELO ([phone])[facility] ([facility])[address] [place] [address] NRBC 0.0 /100 WBCs Normal 0.0-2.0 [facility] Comment on above: Performed By: #### L [id number] ####Typesetter Apprentice: MARY SOTELO ([phone])[facility] ([facility])[address] [place] [address] Platelet mean volume (Bld) [Entitic vol] 10.6 fL Normal 9.0-12.7 [facility] Comment on above: Performed By: #### L [id number] ####Typesetter Apprentice: MARY SOTELO ([phone])[facility] ([facility])[address] [place] [address] Platelets (Bld) [#/Vol] 120 10*3/uL Low 140-440 [facility] Comment on above: Performed By: #### L [id number] ####Typesetter Apprentice: MARY SOTELO ([phone])[facility] ([facility])[address] [place] [address] RBC (Bld) [#/Vol] 2.32 10*6/uL Low 3.80-5.20 [facility] Comment on above: Performed By: #### L [id number] ####Typesetter Apprentice: MARY SOTELO ([phone])[facility] ([facility])[address] [place] [address] WBC (Bld) [#/Vol] 6.5 10*3/uL Normal 3.6-10.7 [facility] Comment on above: Performed By: #### L [id number] ####Typesetter Apprentice: MARY SOTELO ([phone])[facility] ([facility])[address] [place] [address] HEMOGLOBIN AND HEMATOCRIT, B LOODon 08-06-2024 Hematocrit (Bld) [Volume fraction] 25.2 % Low 35.0-47.0 [facility] Comment on above: Order Comment: Recom mend 1 hour post transfusion Performed By: #### L [id number] ####Typesetter Apprentice: MARY SOTELO ([phone])[facility] ([facility])[address] [place] [address] Hemoglobin (Bld) [Mass/Vol] 7.9 g/dL Low 11.7-16.0 [facility] Comment on above: Order Comment: Recom mend 1 hour post transfusion Performed By: #### L [id number] ####Typesetter Apprentice: MARY SOTELO ([phone])[facility] ([facility])[address] [place] [address] Hemoglobin (Bld) [Mass/Vol]o n 08-06-2024 Hematocrit (Bld) [Volume fraction] 25.2 % Low 35.0 - 47.0 % [facility] Interpretation and review of laboratory results Abnormal [facility] IDNon 08-06-2024 IDN The patient is Moderately Stable - Low risk of patient condition declining or worsening The patient's goals for the shift include The clinical goals for the shift include Normal [facility] IDN Normal [facility] IDN Normal [facility] Laboratory - Chemistry and C hemistry - challengeon 08-06-2024 Glucose [Mass/Vol] 271 mg/dL High 70 - 100 mg/dL [facility] Glucose [Mass/Vol] 305 mg/dL High 70 - 100 mg/dL [facility] Glucose [Mass/Vol] 333 mg/dL High 70 - 100 mg/dL [facility] Glucose [Mass/Vol] 199 mg/dL High 70 - 100 mg/dL [facility] Magnesium [Mass/Vol] 1.9 mg/dL 1.6 - 2 .3 mg/dL [facility] Laboratory - Hematology and Cell countson 08-06-2024 Hemoglobin (Bld) [Mass/Vol] 7.9 g/dL Low 11.7 - 16.0 g/dL [facility] MAGNESIUMon 08-06-2024 Magnesium [Mass/Vol] 1.9 mg/dL Normal 1.6-2.3 [facility] Comment on above: Performed By: #### L AB103, LAB15, [id number] ####Typesetter Apprentice: MARY SOTELO ([phone])[facility] ([facility])[address] [place] [address] Magnesium [Mass/Vol]on 08-06 Interpretation and review of laboratory results Normal [facility] No Panel Informationon 08-06 Interpretation and review of laboratory results Abnormal [facility] Interpretation and review of laboratory results Abnormal [facility] Interpretation and review of laboratory results Abnormal [facility] Interpretation and review of laboratory results Abnormal [facility] Blood Expiration Date S [facility] Crossmatch interpretation COMP [facility] Dispense Status Transfused [facility] Product Blood Type 5100 [facility] PRODUCT CODE [id number] [facility] Unit ABO O [facility] Unit Number [id number] [facility] RH Positive [facility] Volume 300 mL [facility] Nursing Noteon 08-06-2024 Nursing Note Patient bladder scanned for 113 ml. Patient states she does not need to void. Message sent to Dr Jarrett Normal [facility] Nursing Note Central line dressin g changed, patient tolerated well Normal [facility] Nursing Note Johnson removed per orders, patient tolerated well Normal [facility] PHOSPHORUSon 08-06-2024 Phosphate [Mass/Vol] 2.2 mg/dL Low 2.5-4.5 [facility] Comment on above: Performed By: #### L AB103, LAB15, [id number] ####Typesetter Apprentice: MRAY SOTELO ([phone])[facility] [place] [address] [place] Phosphate [Moles/Vol]on Interpretation and review of laboratory results Abnormal [facility] Phosphate [Mass/Vol] 2.2 mg/dL Low 2.5 - 4 .5 mg/dL [facility] Progress Noteon 08-06-2024 Progress Note Normal [facility] Progress Note Normal [facility] Progress Note Normal [facility] Progress Note OCCUPATIONAL THERAPY [facility] Name/MRN: Sandy Deng ([id number]) Date: 08/06/2024 Hold OT this a.m.; HgB 6.6 with order to transfuse. Will follow and treat as appropriate. GUILLERMO Taylor Normal [facility] Progress Note Normal [facility] BASIC METABOLIC PANELon Anion gap [Moles/Vol] 0 mmol/L Low 3-13 [facility] Comment on above: Performed By: #### L AB103, [id number], LAB15 ####Typesetter Apprentice: MARY SOTELO ([phone])[facility] [place] [address] [place] Calcium [Mass/Vol] 6.7 mg/dL Low 8.4-10.4 [facility] Comment on above: Performed By: #### L AB103, [id number], LAB15 ####Typesetter Apprentice: MARY SOTELO ([phone])[facility] [place] [address] [place] Chloride [Moles/Vol] 105 mmol/L Normal 98-107 [facility] Comment on above: Performed By: #### L AB103, [id number], LAB15 ####Typesetter Apprentice: MARY SOTELO ([phone])[facility] [place] [address] [place] CO2 [Moles/Vol] 26 mmol/L Normal 22-30 [facility] Comment on above: Performed By: #### L AB103, [id number], LAB15 ####Typesetter Apprentice: MARY SOTELO ([phone])[facility] ([facility])[address] [place] [address] Creatinine [Mass/Vol] 2.56 mg/dL High 0.52-1.04 [facility] Comment on above: Performed By: #### L AB103, [id number], LAB15 ####Typesetter Apprentice: MARY SOTELO ([phone])[facility] ([facility])[address] [place] [address] GLOMERULAR FILTRATION RATE ML/MIN/1.73 SQ M.PREDICTED 20.4 mL/min/1.73m*2 Low >60.0 [facility] Comment on above: Result Comment: Calc ulation based on the Chronic Kidney Disease Epidemiology Collaboration (CKD-EPI) equation refit without adjustment for race Performed By: #### L AB103, [id number], LAB15 ####Typesetter Apprentice: MARY SOTELO ([phone])[facility] ([facility])[address] [place] [address] Glucose [Mass/Vol] 151 mg/dL High 70-100 [facility] Comment on above: Performed By: #### L AB103, [id number], LAB15 ####Typesetter Apprentice: MARY SOTELO ([phone])[facility] ([facility])[address] [place] [address] Potassium [Moles/Vol] 4.0 mmol/L Normal 3.5-5.1 [facility] Comment on above: Performed By: #### L AB103, [id number], LAB15 ####Typesetter Apprentice: MARY SOTELO ([phone])[facility] ([facility])[address] [place] [address] [place] Sodium [Moles/Vol] 132 mmol/L Low 135-145 [facility] Comment on above: Performed By: #### L AB103, [id number], LAB15 ####Typesetter Apprentice: MARY SOTELO ([phone])[facility])[address] [place] [address] Urea nitrogen [Mass/Vol] 35 mg/dL High 7-17 [facility] Comment on above: Performed By: #### L AB103, [id number], LAB15 ####Typesetter Apprentice: MARY SOTELO ([phone])[facility] ([facility])[address] [place] [address] Basic metabolic 1998 panelon 08-05-2024 Anion gap [Moles/Vol] 0 mmol/L Low 3 - 13 mmol/L [facility] Calcium [Mass/Vol] 6.7 mg/dL Low 8.4 - 10. 4 mg/dL [facility] Chloride [Moles/Vol] 105 mmol/L 98 - 10 7 mmol/L [facility] CO2 [Moles/Vol] 26 mmol/L 22 - 30 mmol/L [facility] Creatinine [Mass/Vol] 2.56 mg/dL High 0.52 - 1.04 mg/dL [facility] GFR/1.73 sq M.predicted (S/P/Bld) [Vol rate/Area] 20.4 mL/min Low - PINF [facility] Glucose [Mass/Vol] 151 mg/dL High 70 - 100 mg/dL [facility] Interpretation and review of laboratory results Abnormal [facility] Potassium [Moles/Vol] 4.0 mmol/L 3.5 - 5.1 mmol/L [facility] Sodium [Moles/Vol] 132 mmol/L Low 135 - 145 mmol/L [facility] Urea nitrogen [Mass/Vol] 35 mg/dL High 7 - 17 mg/dL [facility] CARECOORDon 08-05-2024 [facility] requested PT/OT t o see today via see today tool to start auth. Normal [facility] CBC W Auto Differential pane l (Bld)on 08-05-2024 Basophils (Bld) [#/Vol] 0.0 10*3/uL 0.0 - 0.2 10*3/uL [facility] Basophils/100 WBC (Bld) 0.0 % 0.0 - 2.0 % [facility] Eosinophils (Bld) [#/Vol] 0.0 10*3/uL 0.0 - 0.5 10*3/uL [facility] Eosinophils/100 WBC (Bld) 0.5 % 0.0 - 6.0 % [facility] Erythrocyte distribution width (RBC) [Ratio] 17.7 % High 11.5 - 15.0 % [facility] Hematocrit (Bld) [Volume fraction] 23.6 % Low 35.0 - 47.0 % [facility] Hemoglobin (Bld) [Mass/Vol] 7.4 g/dL Low 11.7 - 16.0 g/dL [facility] Immature granulocytes (Bld) [#/Vol] 0.1 10*3/uL High NINF - 0.1 10*3/uL [facility] Immature granulocytes/100 WBC (Bld) 0.7 % 0.0 - 2.0 % [facility] Interpretation and review of laboratory results Abnormal [facility] Lymphocytes (Bld) [#/Vol] 0.7 10*3/uL Low 1.0 - 4.3 10*3/uL [facility] Lymphocytes/100 WBC (Bld) 9.8 % Low 15.0 - 45.0 % [facility] MCH (RBC) [Entitic mass] 28.4 pg 26.0 - 34.0 pg [facility] MCHC (RBC) [Mass/Vol] 31.4 % 30.5 - 36.0 % [facility] MCV (RBC) [Entitic vol] 90.4 fL 77.0 - 99.0 fL [facility] Monocytes (Bld) [#/Vol] 0.3 10*3/uL 0.0 - 0.9 10*3/uL [facility] Monocytes/100 WBC (Bld) 4.2 % Low 5.0 - 13.0 % [facility] Neutrophils (Bld) [#/Vol] 6.3 10*3/uL 1.8 - 7.5 10*3/uL [facility] Neutrophils/100 WBC (Bld) 84.8 % High 38.0 - 82.0 % [facility] Nucleated RBC/100 WBC (Bld) [Ratio] 0.0 % [facility] Platelet mean volume (Bld) [Entitic vol] 10.0 fL 9.0 - 12.7 fL [facility] Platelets (Bld) [#/Vol] 168 10*3/uL 140 - 440 10*3/uL [facility] RBC (Bld) [#/Vol] 2.61 10*6/uL Low 3.80 - 5.2 0 10*6/uL [facility] WBC (Bld) [#/Vol] 7.4 10*3/uL 3.6 - 10.7 10*3/uL [facility] CBC WITH AUTO DIFFERENTIALon 08-05-2024 Basophils (Bld) [#/Vol] 0.0 10*3/uL Normal 0.0-0.2 [facility] Comment on above: Performed By: #### L [id number] ####Typesetter Apprentice: MARY SOTELO ([phone])[facility])[address] [place] [address] Basophils/100 WBC (Bld) 0.0 % Normal 0.0-2.0 [facility] Comment on above: Performed By: #### L [id number] ####Typesetter Apprentice: MARY SOTELO ([phone])[facility])[address] [place] [address] Eosinophils (Bld) [#/Vol] 0.0 10*3/uL Normal 0.0-0.5 [facility] Comment on above: Performed By: #### L [id number] ####Typesetter Apprentice: MARY SOTELO ([phone])[facility])[address] [place] [address] Eosinophils/100 WBC (Bld) 0.5 % Normal 0.0-6.0 [facility] Comment on above: Performed By: #### L [id number] ####Typesetter Apprentice: MARY SOTELO ([phone])[facility])[address] [place] [address] Erythrocyte distribution width (RBC) [Ratio] 17.7 % High 11.5-15.0 [facility] Comment on above: Performed By: #### L [id number] ####Typesetter Apprentice: MARY SOTELO ([phone])[facility])[address] [place] [address] Hematocrit (Bld) [Volume fraction] 23.6 % Low 35.0-47.0 [facility] Comment on above: Performed By: #### L [id number] ####Typesetter Apprentice: MARY [id number])[facility] ([facility])[address] [place] [address] Hemoglobin (Bld) [Mass/Vol] 7.4 g/dL Low 11.7-16.0 [facility] Comment on above: Performed By: #### L [id number] ####Typesetter Apprentice: MARY SOTELO ([phone])[facility])[address] [place] [address] IMMATURE GRANS % 0.7 % Normal 0.0-2.0 [facility] Comment on above: Performed By: #### L [id number] ####Typesetter Apprentice: MARY SOTELO ([phone])[facility])[address] [place] [address] IMMATURE GRANS ABSOLUTE 0.1 10*3/uL High <0.1 [facility] Comment on above: Performed By: #### L [id number] ####Typesetter Apprentice: MARY SOTELO ([phone])[facility])[address] [place] [address] Lymphocytes (Bld) [#/Vol] 0.7 10*3/uL Low 1.0-4.3 [facility] Comment on above: Performed By: #### L [id number] ####Typesetter Apprentice: MARY SOTELO ([phone])[facility])[address] [place] [address] Lymphocytes/100 WBC (Bld) 9.8 % Low 15.0-45.0 [facility] Comment on above: Performed By: #### L [id number] ####Typesetter Apprentice: MARY SOTELO ([phone])[facility])[address] [place] [address] MCH (RBC) [Entitic mass] 28.4 pg Normal 26.0-34.0 [facility] Comment on above: Performed By: #### L [id number] ####Typesetter Apprentice: MARY SOTELO ([phone])[facility])[address] [place] [address] MCHC 31.4 % Normal 30.5-36.0 [facility] Comment on above: Performed By: #### L [id number] ####Typesetter Apprentice: MARY SOTELO ([phone])[facility])[address] [place] [address] MCV (RBC) [Entitic vol] 90.4 fL Normal 77.0-99.0 [facility] Comment on above: Performed By: #### L [id number] ####Typesetter Apprentice: MARY SOTELO ([phone])[facility])[address] [place] [address] Monocytes (Bld) [#/Vol] 0.3 10*3/uL Normal 0.0-0.9 [facility] Comment on above: Performed By: #### L [id number] ####Typesetter Apprentice: MARY SOTELO ([phone])[facility])[address] [place] [address] Monocytes/100 WBC (Bld) 4.2 % Low 5.0-13.0 [facility] Comment on above: Performed By: #### L [id number] ####Typesetter Apprentice: MARY SOTELO ([phone])[facility] ([facility])[address] [place] [address] NEUTROPHILS ABSOLUTE 6.3 10*3/uL Normal 1.8-7.5 [facility] Comment on above: Performed By: #### L [id number] ####Typesetter Apprentice: MARY SOTELO ([phone])[facility])[address] [place] [address] Neutrophils/100 WBC (Bld) 84.8 % High 38.0-82.0 [facility] Comment on above: Performed By: #### L [id number] ####Typesetter Apprentice: MARY SOTELO ([phone])[facility])[address] [place] [address] NRBC 0.0 /100 WBCs Normal 0.0-2.0 [facility] Comment on above: Performed By: #### L [id number] ####Typesetter Apprentice: MARY SOTELO ([phone])[facility] ([facility])[address] [place] [address] Platelet mean volume (Bld) [Entitic vol] 10.0 fL Normal 9.0-12.7 [facility] Comment on above: Performed By: #### L [id number] ####Typesetter Apprentice: MARY SOTELO ([phone])[facility] ([facility])[address] [place] [address] Platelets (Bld) [#/Vol] 168 10*3/uL Normal 140-440 [facility] Comment on above: Performed By: #### L [id number] ####Typesetter Apprentice: MARY SOTELO ([phone])[facility] ([facility])[address] [place] [address] RBC (Bld) [#/Vol] 2.61 10*6/uL Low 3.80-5.20 [facility] Comment on above: Performed By: #### L [id number] ####Typesetter Apprentice: MARY SOTELO ([phone])[facility] ([facility])[address] [place] [address] WBC (Bld) [#/Vol] 7.4 10*3/uL Normal 3.6-10.7 [facility] Comment on above: Performed By: #### L [id number] ####Typesetter Apprentice: MARY SOTELO ([phone])[facility] ([facility])[address] [place] [address] LACTIC ACID WITH REFLEXon Lactate [Moles/Vol] 0.5 mmol/L Low 0.7-2.0 [facility] Comment on above: Performed By: #### L [id number] ####Typesetter Apprentice: MARY SOTELO ([phone])[facility])[address] [place] [address] Laboratory - Chemistry and C hemistry - challengeon 08-05-2024 Glucose [Mass/Vol] 341 mg/dL High 70 - 100 mg/dL [facility] Glucose [Mass/Vol] 303 mg/dL High 70 - 100 mg/dL [facility] Procalcitonin [Mass/Vol] 0.16 ng/mL High 0.00 - 0.09 ng/mL [facility] Glucose [Mass/Vol] 285 mg/dL High 70 - 100 mg/dL [facility] Glucose [Mass/Vol] 139 mg/dL High 70 - 100 mg/dL [facility] Magnesium [Mass/Vol] 2.2 mg/dL 1.6 - 2 .3 mg/dL [facility] Lactate [Moles/Vol] 0.5 mmol/L Low 0.7 - 2. 0 mmol/L [facility] MAGNESIUMon 08-05-2024 Magnesium [Mass/Vol] 2.2 mg/dL Normal 1.6-2.3 [facility] Comment on above: Performed By: #### L AB103, [id number], LAB15 ####Typesetter Apprentice: MARY SOTELO ([phone])[address] No Panel Informationon 08-05 Interpretation and review of laboratory results Abnormal [facility] Interpretation and review of laboratory results Abnormal [facility] Interpretation and review of laboratory results Abnormal [facility] Interpretation and review of laboratory results Abnormal [facility] Interpretation and review of laboratory results Normal [facility] Interpretation and review of laboratory results Abnormal [facility] Nursing Noteon 08-05-2024 Nursing Note Normal [facility] PHOSPHORUSon 08-05-2024 Phosphate [Mass/Vol] 3.6 mg/dL Normal 2.5-4.5 [facility] Comment on above: Performed By: #### L AB103, [id number], LAB15 ####Typesetter Apprentice: MARY SOTELO ([phone])[facility])[address] [place] [address] PROCALCITONIN TESTon 024 PROCALCITONIN 0.16 ng/mL High 0.00-0.09 [facility] Comment on above: Result Comment: ORDE R COMMENTS:PCT <0.50 = Low risk of severe sepsis and/or septic shock.PCT >2.00 = High risk of severe sepsis and/or septic shock. Performed By: #### L [id number] ####Typesetter Apprentice: MARY SOTELO ([phone])[facility])[address] [place] [address] [place] Phosphate [Moles/Vol]on Phosphate [Mass/Vol] 3.6 mg/dL 2.5 - 4 .5 mg/dL [facility] Procalcitonin [Mass/Vol]on Interpretation and review of laboratory results Abnormal [facility] Progress Noteon 08-05-2024 Progress Note Normal [facility] Progress Note Normal [facility] Progress Note Normal [facility] Progress Note Normal [facility] Progress Note Normal [facility] Progress Note Normal [facility] XR CHEST 1 VIEWon 08-05-2024 XR CHEST 1 VIEW Normal [facility] XR Chest Single viewon 08-05 [facility] Radiology Study observation (narrative) [facility] BASIC METABOLIC PANELon Anion gap [Moles/Vol] 4 mmol/L Normal 3-13 [facility] Comment on above: Performed By: #### L AB113, [id number], LAB15 ####Typesetter Apprentice: MARY SOTELO ([phone])[facility] ([facility])[address] [place] [address] [place] Calcium [Mass/Vol] 7.0 mg/dL Low 8.4-10.4 [facility] Comment on above: Performed By: #### L AB113, [id number], LAB15 ####Typesetter Apprentice: MARY SOTELO ([phone])[facility] ([facility])[address] [place] [address] [place] Chloride [Moles/Vol] 104 mmol/L Normal 98-107 [facility] Comment on above: Performed By: #### L AB113, [id number], LAB15 ####Typesetter Apprentice: MARY SOTELO ([phone])[facility] ([facility])[address] [place] [address] CO2 [Moles/Vol] 26 mmol/L Normal 22-30 [facility] Comment on above: Performed By: #### L AB113, [id number], LAB15 ####Typesetter Apprentice: MARY SOTELO ([phone])[facility])[address] [place] [address] Creatinine [Mass/Vol] 1.88 mg/dL High 0.52-1.04 [facility] Comment on above: Performed By: #### L AB113, [id number], LAB15 ####Typesetter Apprentice: MARY SOTELO ([phone])[facility] ([facility])[address] [place] [address] GLOMERULAR FILTRATION RATE ML/MIN/1.73 SQ M.PREDICTED 29.6 mL/min/1.73m*2 Low >60.0 [facility] Comment on above: Result Comment: Calc ulation based on the Chronic Kidney Disease Epidemiology Collaboration (CKD-EPI) equation refit without adjustment for race Performed By: #### L AB113, [id number], LAB15 ####Typesetter Apprentice: MARY SOTELO ([phone])[facility] ([facility])[address] [place] [address] Glucose [Mass/Vol] 119 mg/dL High 70-100 [facility] Comment on above: Performed By: #### L AB113, [id number], LAB15 ####Typesetter Apprentice: MARY SOTELO ([phone])[facility])[address] [place] [address] Potassium [Moles/Vol] 3.6 mmol/L Normal 3.5-5.1 [facility] Comment on above: Performed By: #### L AB113, [id number], LAB15 ####Typesetter Apprentice: MARY SOTELO ([phone])[facility])[address] [place] [address] Sodium [Moles/Vol] 134 mmol/L Low 135-145 [facility] Comment on above: Performed By: #### L AB113, [id number], LAB15 ####Typesetter Apprentice: MARY SOTELO ([phone])[facility] ([facility])[address] [place] [address] Urea nitrogen [Mass/Vol] 24 mg/dL High 7-17 [facility] Comment on above: Performed By: #### L AB113, [id number], LAB15 ####Typesetter Apprentice: MARY SOTELO ([phone])[facility] [place] [address] Basic metabolic 1998 panelon 08-04-2024 Anion gap [Moles/Vol] 4 mmol/L 3 - 13 mmol/L [facility] Calcium [Mass/Vol] 7.0 mg/dL Low 8.4 - 10. 4 mg/dL [facility] Chloride [Moles/Vol] 104 mmol/L 98 - 10 7 mmol/L [facility] CO2 [Moles/Vol] 26 mmol/L 22 - 30 mmol/L [facility] Creatinine [Mass/Vol] 1.88 mg/dL High 0.52 - 1.04 mg/dL [facility] GFR/1.73 sq M.predicted (S/P/Bld) [Vol rate/Area] 29.6 mL/min Low - PINF [facility] Glucose [Mass/Vol] 119 mg/dL High 70 - 100 mg/dL [facility] Interpretation and review of laboratory results Abnormal [facility] Potassium [Moles/Vol] 3.6 mmol/L 3.5 - 5.1 mmol/L [facility] Sodium [Moles/Vol] 134 mmol/L Low 135 - 145 mmol/L [facility] Urea nitrogen [Mass/Vol] 24 mg/dL High 7 - 17 mg/dL [facility] CALCIUM, IONIZEDon 4 CALCIUM IONIZED 3.70 mg/dL Low 4.30-5.20 [facility] Comment on above: Performed By: #### L [id number] ####Typesetter Apprentice: MARY SOTELO ([phone])[facility] [place] [address] PH, IONIZED CALCIUM 7.45 Normal 7.31-7.46 [facility] Comment on above: Performed By: #### L [id number] ####Typesetter Apprentice: MARY SOTELO ([phone])[facility] ([facility])[address] [place] [address] CARECOORDon 08-04-2024 [place]OF[place] Normal [facility] CBC W Auto Differential pane l (Bld)on 08-04-2024 Basophils (Bld) [#/Vol] 0.0 10*3/uL 0.0 - 0.2 10*3/uL [facility] Basophils/100 WBC (Bld) 0.1 % 0.0 - 2.0 % [facility] Eosinophils (Bld) [#/Vol] 0.1 10*3/uL 0.0 - 0.5 10*3/uL [facility] Eosinophils/100 WBC (Bld) 0.7 % 0.0 - 6.0 % [facility] Erythrocyte distribution width (RBC) [Ratio] 17.4 % High 11.5 - 15.0 % [facility] Hematocrit (Bld) [Volume fraction] 26.5 % Low 35.0 - 47.0 % [facility] Hemoglobin (Bld) [Mass/Vol] 8.3 g/dL Low 11.7 - 16.0 g/dL [facility] Immature granulocytes (Bld) [#/Vol] 0.1 10*3/uL High NINF - 0.1 10*3/uL [facility] Immature granulocytes/100 WBC (Bld) 1.1 % 0.0 - 2.0 % [facility] Interpretation and review of laboratory results Abnormal [facility] Lymphocytes (Bld) [#/Vol] 0.7 10*3/uL Low 1.0 - 4.3 10*3/uL [facility] Lymphocytes/100 WBC (Bld) 8.4 % Low 15.0 - 45.0 % [facility] MCH (RBC) [Entitic mass] 28.5 pg 26.0 - 34.0 pg [facility] MCHC (RBC) [Mass/Vol] 31.3 % 30.5 - 36.0 % [facility] MCV (RBC) [Entitic vol] 91.1 fL 77.0 - 99.0 fL [facility] Monocytes (Bld) [#/Vol] 0.3 10*3/uL 0.0 - 0.9 10*3/uL [facility] Monocytes/100 WBC (Bld) 3.6 % Low 5.0 - 13.0 % [facility] Neutrophils (Bld) [#/Vol] 7.4 10*3/uL 1.8 - 7.5 10*3/uL [facility] Neutrophils/100 WBC (Bld) 86.1 % High 38.0 - 82.0 % [facility] Nucleated RBC/100 WBC (Bld) [Ratio] 0.0 % [facility] Platelet mean volume (Bld) [Entitic vol] 9.1 fL 9.0 - 12.7 fL [facility] Platelets (Bld) [#/Vol] 178 10*3/uL 140 - 440 10*3/uL [facility] RBC (Bld) [#/Vol] 2.91 10*6/uL Low 3.80 - 5.2 0 10*6/uL [facility] WBC (Bld) [#/Vol] 8.5 10*3/uL 3.6 - 10.7 10*3/uL [facility] CBC WITH AUTO DIFFERENTIALon 08-04-2024 Basophils (Bld) [#/Vol] 0.0 10*3/uL Normal 0.0-0.2 [facility] Comment on above: Performed By: #### L [id number] ####Typesetter Apprentice: MARY SOTELO ([phone])[address] Basophils/100 WBC (Bld) 0.1 % Normal 0.0-2.0 [facility] Comment on above: Performed By: #### L [id number] ####Typesetter Apprentice: MARY SOTELO ([phone])[facility])[address] [place] [address] Eosinophils (Bld) [#/Vol] 0.1 10*3/uL Normal 0.0-0.5 [facility] Comment on above: Performed By: #### L [id number] ####Typesetter Apprentice: MARY SOTELO ([phone])[facility])[address] [place] [address] Eosinophils/100 WBC (Bld) 0.7 % Normal 0.0-6.0 [facility] Comment on above: Performed By: #### L [id number] ####Typesetter Apprentice: MARY SOTELO ([phone])[address] Erythrocyte distribution width (RBC) [Ratio] 17.4 % High 11.5-15.0 [facility] Comment on above: Performed By: #### L [id number] ####Typesetter Apprentice: MARY SOTELO ([phone])[address] Hematocrit (Bld) [Volume fraction] 26.5 % Low 35.0-47.0 [facility] Comment on above: Performed By: #### L [id number] ####Typesetter Apprentice: MARY SOTELO ([phone])[address] Hemoglobin (Bld) [Mass/Vol] 8.3 g/dL Low 11.7-16.0 [facility] Comment on above: Performed By: #### L [id number] ####Typesetter Apprentice: MARY SOTELO ([phone])[address] IMMATURE GRANS % 1.1 % Normal 0.0-2.0 [facility] Comment on above: Performed By: #### L [id number] ####Typesetter Apprentice: MARY SOTELO ([phone])[address] IMMATURE GRANS ABSOLUTE 0.1 10*3/uL High <0.1 [facility] Comment on above: Performed By: #### L [id number] ####Typesetter Apprentice: MARY SOTELO ([phone])[address] Lymphocytes (Bld) [#/Vol] 0.7 10*3/uL Low 1.0-4.3 [facility] Comment on above: Performed By: #### L [id number] ####Typesetter Apprentice: MARY [phone])[facility])[address] [place] [address] Lymphocytes/100 WBC (Bld) 8.4 % Low 15.0-45.0 [facility] Comment on above: Performed By: #### L [id number] ####Typesetter Apprentice: MARY SOTELO ([phone])[facility])[address] [place] [address] MCH (RBC) [Entitic mass] 28.5 pg Normal 26.0-34.0 [facility] Comment on above: Performed By: #### L [id number] ####Typesetter Apprentice: MARY SOTELO ([phone])[facility])[address] [place] [address] MCHC 31.3 % Normal 30.5-36.0 [facility] Comment on above: Performed By: #### L [id number] ####Typesetter Apprentice: MARY SOTELO ([phone])[facility])[address] [place] [address] MCV (RBC) [Entitic vol] 91.1 fL Normal 77.0-99.0 [facility] Comment on above: Performed By: #### L [id number] ####Typesetter Apprentice: MARY SOTELO ([phone])[facility])[address] [place] [address] Monocytes (Bld) [#/Vol] 0.3 10*3/uL Normal 0.0-0.9 [facility] Comment on above: Performed By: #### L [id number] ####Typesetter Apprentice: MARY SOTELO ([phone])[facility])[address] [place] [address] Monocytes/100 WBC (Bld) 3.6 % Low 5.0-13.0 [facility] Comment on above: Performed By: #### L [id number] ####Typesetter Apprentice: MARY SOTELO ([phone])[facility])[address] [place] [address] NEUTROPHILS ABSOLUTE 7.4 10*3/uL Normal 1.8-7.5 [facility] Comment on above: Performed By: #### L [id number] ####Typesetter Apprentice: MARY SOTELO ([phone])[facility] ([facility])[address] [place] [address] Neutrophils/100 WBC (Bld) 86.1 % High 38.0-82.0 [facility] Comment on above: Performed By: #### L [id number] ####Typesetter Apprentice: MARY SOTELO ([phone])[facility] ([facility])[address] [place] [address] NRBC 0.0 /100 WBCs Normal 0.0-2.0 [facility] Comment on above: Performed By: #### L [id number] ####Typesetter Apprentice: MARY SOTELO ([phone])[facility] ([facility])[address] [place] [address] Platelet mean volume (Bld) [Entitic vol] 9.1 fL Normal 9.0-12.7 [facility] Comment on above: Performed By: #### L [id number] ####Typesetter Apprentice: MARY SOTELO ([phone])[facility] ([facility])[address] [place] [address] Platelets (Bld) [#/Vol] 178 10*3/uL Normal 140-440 [facility] Comment on above: Performed By: #### L [id number] ####Typesetter Apprentice: MARY SOTELO ([phone])[facility] ([facility])[address] [place] [address] RBC (Bld) [#/Vol] 2.91 10*6/uL Low 3.80-5.20 [facility] Comment on above: Performed By: #### L [id number] ####Typesetter Apprentice: MARY SOTELO ([phone])[facility] ([facility])[address] [place] [address] WBC (Bld) [#/Vol] 8.5 10*3/uL Normal 3.6-10.7 [facility] Comment on above: Performed By: #### L [id number] ####Typesetter Apprentice: MARY SOTELO ([phone])[facility] ([facility])[address] [place] [address] Calcium.ionized [Moles/Vol]o n 08-04-2024 Calcium.ionized (Bld) [Moles/Vol] 3.70 mg/dL Low 4.30 - 5.20 mg/dL [facility] Interpretation and review of laboratory results Abnormal [facility] PH, IONIZED CALCIUM 7.45 7.31 - 7.46 [facility] IDNon 08-04-2024 IDN Normal [facility] - Chemistry and C hemistry - challengeon 08-04-2024 Glucose [Mass/Vol] 167 mg/dL High 70 - 100 mg/dL [facility] Glucose [Mass/Vol] 181 mg/dL High 70 - 100 mg/dL [facility] Glucose [Mass/Vol] 191 mg/dL High 70 - 100 mg/dL [facility] Glucose [Mass/Vol] 113 mg/dL High 70 - 100 mg/dL [facility] Magnesium [Mass/Vol] 2.0 mg/dL 1.6 - 2 .3 mg/dL [facility] MAGNESIUMon 08-04-2024 Magnesium [Mass/Vol] 2.0 mg/dL Normal 1.6-2.3 [facility] Comment on above: Performed By: #### L [id number], [id number], LAB15 ####Typesetter Apprentice: MARY SOTELO ([phone])[facility] ([facility])[address] [place] [address] No Panel Informationon 08-04 Interpretation and review of laboratory results Abnormal [facility] Interpretation and review of laboratory results Abnormal [facility] Interpretation and review of laboratory results Abnormal [facility] Interpretation and review of laboratory results Abnormal [facility] Interpretation and review of laboratory results Normal [facility] Nursing Noteon 08-04-2024 Nursing Note Normal [facility] PHOSPHORUSon 08-04-2024 Phosphate [Mass/Vol] 3.4 mg/dL Normal 2.5-4.5 [facility] Comment on above: Performed By: #### Dora AB113, [id number], LAB15 ####Typesetter Apprentice: MARY SOTELO ([phone])[facility] ([facility])[address] [place] [address] [place] Phosphate [Moles/Vol]on Phosphate [Mass/Vol] 3.4 mg/dL 2.5 - 4 .5 mg/dL [facility] Progress Noteon 08-04-2024 Progress Note Normal [facility] Progress Note Normal [facility] Progress Note Normal [facility] Progress Note Normal [facility] RF videography Hypopharynx a nd Esophagus Views for swallowing function W speech and W barium contrast Harman 08-04-2024 [facility] Radiology Study observation (narrative) [facility] RF videography Hypopharynx a nd Esophagus Views for swallowing function W speech and W barium contrast POOrdered By: Mynor Pulido on 08-04-2024 [facility] Work Phone: BASIC METABOLIC PANELon Anion gap [Moles/Vol] 1 mmol/L Low 3-13 [facility] Comment on above: Performed By: #### Dora SONG, LAB15, [id number] ####Typesetter Apprentice: MARY SOTELO ([phone])[facility] ([facility])[address] [place] [address] [place] Calcium [Mass/Vol] 7.4 mg/dL Low 8.4-10.4 [facility] Comment on above: Performed By: #### Dora [id number], LAB15, [id number] ####Typesetter Apprentice: MARY SOTELO ([phone])[facility] ([facility])[address] [place] [address] [place] Chloride [Moles/Vol] 110 mmol/L High 98-107 [facility] Comment on above: Performed By: #### L AB103, LAB15, [id number] ####Typesetter Apprentice: MARY SOTELO ([phone])[facility] ([facility])[address] [place] [address] [place] CO2 [Moles/Vol] 26 mmol/L Normal 22-30 [facility] Comment on above: Performed By: #### L AB103, LAB15, [id number] ####Typesetter Apprentice: MARY SOTELO ([phone])[facility] [place] [address] Creatinine [Mass/Vol] 2.29 mg/dL High 0.52-1.04 [facility] Comment on above: Performed By: #### L AB103, LAB15, [id number] ####Typesetter Apprentice: MARY SOTELO ([phone])[facility] ([facility])[address] [place] [address] GLOMERULAR FILTRATION RATE ML/MIN/1.73 SQ M.PREDICTED 23.3 mL/min/1.73m*2 Low >60.0 [facility] Comment on above: Result Comment: Calc ulation based on the Chronic Kidney Disease Epidemiology Collaboration (CKD-EPI) equation refit without adjustment for race Performed By: #### Dora AB103, LAB15, [id number] ####Typesetter Apprentice: MARY SOTELO ([phone])[facility] [place] [address] Glucose [Mass/Vol] 87 mg/dL Normal 70-100 [facility] Comment on above: Performed By: #### Dora AB103, LAB15, [id number] ####Typesetter Apprentice: MARY SOTELO ([phone])[facility])[address] [place] [address] [place] Potassium [Moles/Vol] 4.3 mmol/L Normal 3.5-5.1 [facility] Comment on above: Performed By: #### L AB103, LAB15, [id number] ####Typesetter Apprentice: MARY SOTELO ([phone])[facility])[address] [place] [address] [place] Sodium [Moles/Vol] 137 mmol/L Normal 135-145 [facility] Comment on above: Performed By: #### L AB103, LAB15, [id number] ####Typesetter Apprentice: MARY SOTELO ([phone])[facility])[address] [place] [address] [place] Urea nitrogen [Mass/Vol] 28 mg/dL High 7-17 [facility] Comment on above: Performed By: #### L AB103, LAB15, [id number] ####Typesetter Apprentice: MARY SOTELO ([phone])[facility] ([facility])[address] [place] [address] Basic metabolic 1998 panelon 08-03-2024 Anion gap [Moles/Vol] 1 mmol/L Low 3 - 13 mmol/L [facility] Calcium [Mass/Vol] 7.4 mg/dL Low 8.4 - 10. 4 mg/dL [facility] Chloride [Moles/Vol] 110 mmol/L High 98 - 10 7 mmol/L [facility] CO2 [Moles/Vol] 26 mmol/L 22 - 30 mmol/L [facility] Creatinine [Mass/Vol] 2.29 mg/dL High 0.52 - 1.04 mg/dL [facility] GFR/1.73 sq M.predicted (S/P/Bld) [Vol rate/Area] 23.3 mL/min Low - PINF [facility] Glucose [Mass/Vol] 87 mg/dL 70 - 100 mg/dL [facility] Potassium [Moles/Vol] 4.3 mmol/L 3.5 - 5.1 mmol/L [facility] Sodium [Moles/Vol] 137 mmol/L 135 - 145 mmol/L [facility] Urea nitrogen [Mass/Vol] 28 mg/dL High 7 - 17 mg/dL [facility] CALCIUM, IONIZEDon 4 CALCIUM IONIZED 4.20 mg/dL Low 4.30-5.20 [facility] Comment on above: Performed By: #### L [id number] ####Typesetter Apprentice: MARY SOTELO ([phone])[facility] [place] [address] PH, IONIZED CALCIUM 7.29 Low 7.31-7.46 [facility] Comment on above: Performed By: #### L AB54 ####Typesetter Apprentice: MARY SOTELO ([phone])[facility] [place] [address] CARECOORDon 08-03-2024 [facility] Normal [facility] CBC W Auto Differential pane l (Bld)Ordered By: Irais Carranza on 08-03-2024 Basophils (Bld) [#/Vol] 0.0 10*3/uL 0.0 - 0.2 10*3/uL [facility] Basophils/100 WBC (Bld) 0.2 % 0.0 - 2.0 % [facility] Eosinophils (Bld) [#/Vol] 0.1 10*3/uL 0.0 - 0.5 10*3/uL [facility] Eosinophils/100 WBC (Bld) 0.5 % 0.0 - 6.0 % [facility] Erythrocyte distribution width (RBC) [Ratio] 18.1 % High 11.5 - 15.0 % [facility] Hematocrit (Bld) [Volume fraction] 28.6 % Low 35.0 - 47.0 % [facility] Hemoglobin (Bld) [Mass/Vol] 8.5 g/dL Low 11.7 - 16.0 g/dL [facility] Immature granulocytes (Bld) [#/Vol] 0.1 10*3/uL High NINF - 0.1 10*3/uL [facility] Immature granulocytes/100 WBC (Bld) 1.1 % 0.0 - 2.0 % [facility] Interpretation and review of laboratory results Abnormal [facility] Lymphocytes (Bld) [#/Vol] 0.7 10*3/uL Low 1.0 - 4.3 10*3/uL [facility] Lymphocytes/100 WBC (Bld) 6.5 % Low 15.0 - 45.0 % [facility] MCH (RBC) [Entitic mass] 27.4 pg 26.0 - 34.0 pg [facility] MCHC (RBC) [Mass/Vol] 29.7 % Low 30.5 - 36.0 % [facility] MCV (RBC) [Entitic vol] 92.3 fL 77.0 - 99.0 fL [facility] Monocytes (Bld) [#/Vol] 0.3 10*3/uL 0.0 - 0.9 10*3/uL [facility] Monocytes/100 WBC (Bld) 3.0 % Low 5.0 - 13.0 % [facility] Neutrophils (Bld) [#/Vol] 9.6 10*3/uL High 1.8 - 7.5 10*3/uL [facility] Neutrophils/100 WBC (Bld) 88.7 % High 38.0 - 82.0 % [facility] Nucleated RBC/100 WBC (Bld) [Ratio] 0.0 % [facility] Platelet mean volume (Bld) [Entitic vol] 9.9 fL 9.0 - 12.7 fL [facility] Platelets (Bld) [#/Vol] 210 10*3/uL 140 - 440 10*3/uL [facility] RBC (Bld) [#/Vol] 3.10 10*6/uL Low 3.80 - 5.2 0 10*6/uL [facility] WBC (Bld) [#/Vol] 10.8 10*3/uL High 3.6 - 10.7 10*3/uL [facility] CBC WITH AUTO DIFFERENTIALon 08-03-2024 Basophils (Bld) [#/Vol] 0.0 10*3/uL Normal 0.0-0.2 [facility] Comment on above: Performed By: #### L [id number] ####Typesetter Apprentice: MARY SOTELO ([phone])[address] Basophils/100 WBC (Bld) 0.2 % Normal 0.0-2.0 [facility] Comment on above: Performed By: #### L [id number] ####Typesetter Apprentice: MARY SOTELO ([phone])[facility])[address] [place] [address] Eosinophils (Bld) [#/Vol] 0.1 10*3/uL Normal 0.0-0.5 [facility] Comment on above: Performed By: #### L [id number] ####Typesetter Apprentice: MARY SOTELO ([phone])[facility])[address] [place] [address] [place] Eosinophils/100 WBC (Bld) 0.5 % Normal 0.0-6.0 [facility] Comment on above: Performed By: #### L [id number] ####Typesetter Apprentice: MARY SOTELO ([phone])[facility] ([facility])[address] [place] [address] Erythrocyte distribution width (RBC) [Ratio] 18.1 % High 11.5-15.0 [facility] Comment on above: Performed By: #### L [id number] ####Typesetter Apprentice: MARY SOTELO ([phone])[facility])[address] [place] [address] Hematocrit (Bld) [Volume fraction] 28.6 % Low 35.0-47.0 [facility] Comment on above: Performed By: #### L [id number] ####Typesetter Apprentice: MARY SOTELO ([phone])[facility])[address] [place] [address] Hemoglobin (Bld) [Mass/Vol] 8.5 g/dL Low 11.7-16.0 [facility] Comment on above: Performed By: #### L [id number] ####Typesetter Apprentice: MARY SOTELO ([phone])[facility] ([facility])[address] [place] [address] IMMATURE GRANS % 1.1 % Normal 0.0-2.0 [facility] Comment on above: Performed By: #### L [id number] ####Typesetter Apprentice: MARY SOTELO ([phone])[facility])[address] [place] [address] IMMATURE GRANS ABSOLUTE 0.1 10*3/uL High <0.1 [facility] Comment on above: Performed By: #### L [id number] ####Typesetter Apprentice: MARY SOTELO ([phone])[facility])[address] [place] [address] Lymphocytes (Bld) [#/Vol] 0.7 10*3/uL Low 1.0-4.3 [facility] Comment on above: Performed By: #### L [id number] ####Typesetter Apprentice: MARY SOTELO ([phone])[facility])[address] [place] [address] Lymphocytes/100 WBC (Bld) 6.5 % Low 15.0-45.0 [facility] Comment on above: Performed By: #### L [id number] ####Typesetter Apprentice: MARY SOTELO ([phone])[facility])[address] [place] [address] MCH (RBC) [Entitic mass] 27.4 pg Normal 26.0-34.0 [facility] Comment on above: Performed By: #### L [id number] ####Typesetter Apprentice: MARY SOTELO ([phone])[facility])[address] [place] [address] MCHC 29.7 % Low 30.5-36.0 [facility] Comment on above: Performed By: #### L [id number] ####Typesetter Apprentice: MARY SOTELO ([phone])[facility])[address] [place] [address] MCV (RBC) [Entitic vol] 92.3 fL Normal 77.0-99.0 [facility] Comment on above: Performed By: #### L [id number] ####Typesetter Apprentice: MARY SOTELO ([phone])[facility])[address] [place] [address] Monocytes (Bld) [#/Vol] 0.3 10*3/uL Normal 0.0-0.9 [facility] Comment on above: Performed By: #### L [id number] ####Typesetter Apprentice: MARY SOTELO ([phone])[facility])[address] [place] [address] Monocytes/100 WBC (Bld) 3.0 % Low 5.0-13.0 [facility] Comment on above: Performed By: #### L [id number] ####Typesetter Apprentice: MARY SOTELO ([phone])[facility])[address] [place] [address] NEUTROPHILS ABSOLUTE 9.6 10*3/uL High 1.8-7.5 [facility] Comment on above: Performed By: #### L [id number] ####Typesetter Apprentice: MARY SOTELO ([phone])[facility] ([facility])[address] [place] [address] Neutrophils/100 WBC (Bld) 88.7 % High 38.0-82.0 [facility] Comment on above: Performed By: #### L [id number] ####Typesetter Apprentice: MARY SOTELO ([phone])[facility] ([facility])[address] [place] [address] NRBC 0.0 /100 WBCs Normal 0.0-2.0 [facility] Comment on above: Performed By: #### L [id number] ####Typesetter Apprentice: MARY SOTELO ([phone])[facility] ([facility])[address] [place] [address] Platelet mean volume (Bld) [Entitic vol] 9.9 fL Normal 9.0-12.7 [facility] Comment on above: Performed By: #### L [id number] ####Typesetter Apprentice: MARY SOTELO ([phone])[facility] ([facility])[address] [place] [address] Platelets (Bld) [#/Vol] 210 10*3/uL Normal 140-440 [facility] Comment on above: Performed By: #### L [id number] ####Typesetter Apprentice: MARY SOTELO ([phone])[facility] ([facility])[address] [place] [address] RBC (Bld) [#/Vol] 3.10 10*6/uL Low 3.80-5.20 [facility] Comment on above: Performed By: #### L [id number] ####Typesetter Apprentice: MARY SOTELO ([phone])[facility] ([facility])[address] [place] [address] WBC (Bld) [#/Vol] 10.8 10*3/uL High 3.6-10.7 [facility] Comment on above: Performed By: #### L [id number] ####Typesetter Apprentice: MARY SOTELO ([phone])[facility] ([facility])[address] [place] [address] Calcium.ionized [Moles/Vol]o n 08-03-2024 Calcium.ionized (Bld) [Moles/Vol] 4.20 mg/dL Low 4.30 - 5.20 mg/dL [facility] Interpretation and review of laboratory results Abnormal [facility] PH, IONIZED CALCIUM 7.29 Low 7.31 - 7.46 [facility] - Chemistry and C hemistry - challengeon 08-03-2024 Glucose [Mass/Vol] 118 mg/dL High 70 - 100 mg/dL [facility] Glucose [Mass/Vol] 93 mg/dL 70 - 100 mg/dL [facility] Glucose [Mass/Vol] 173 mg/dL High 70 - 100 mg/dL [facility] Glucose [Mass/Vol] 81 mg/dL 70 - 100 mg/dL [facility] Magnesium [Mass/Vol] 2.4 mg/dL High 1.6 - 2 .3 mg/dL [facility] Glucose [Mass/Vol] 88 mg/dL 70 - 100 mg/dL [facility] MAGNESIUMon 08-03-2024 Magnesium [Mass/Vol] 2.4 mg/dL High 1.6-2.3 [facility] Comment on above: Performed By: #### L AB103, LAB15, [id number] ####Typesetter Apprentice: MARY SOTELO ([phone])[facility] ([facility])[address] [place] [address] No Panel Informationon 08-03 Interpretation and review of laboratory results Abnormal [facility] Interpretation and review of laboratory results Normal [facility] Interpretation and review of laboratory results Abnormal [facility] Interpretation and review of laboratory results Normal [facility] Interpretation and review of laboratory results Abnormal [facility] Interpretation and review of laboratory results Normal [facility] Nursing Noteon 08-03-2024 Nursing Note Normal [facility] PHOSPHORUSon 08-03-2024 Phosphate [Mass/Vol] 3.4 mg/dL Normal 2.5-4.5 [facility] Comment on above: Performed By: #### Dora AB103, LAB15, [id number] ####Typesetter Apprentice: MARY SOTELO ([phone])[facility] ([facility])[address] [place] [address] [place] Phosphate [Moles/Vol]on Interpretation and review of laboratory results Normal [facility] Phosphate [Mass/Vol] 3.4 mg/dL 2.5 - 4 .5 mg/dL [facility] Progress Noteon 08-03-2024 Progress Note Normal [facility] Progress Note Normal [facility] Progress Note Normal [facility] Progress Note Normal [facility] Progress Note Normal [facility] BASIC METABOLIC PANELon 07-06 Anion gap [Moles/Vol] 3 mmol/L Normal 3-13 [facility] Comment on above: Performed By: #### Dora ABGabbie, LAB15, [id number] ####Typesetter Apprentice: MARY SOTELO ([phone])[facility] [place] [address] [place] Calcium [Mass/Vol] 7.4 mg/dL Low 8.4-10.4 [facility] Comment on above: Performed By: #### Dora ABGabbie, LAB15, [id number] ####Typesetter Apprentice: MARY SOTELO ([phone])[facility] [place] [address] [place] Chloride [Moles/Vol] 107 mmol/L Normal 98-107 [facility] Comment on above: Performed By: #### Dora AB113, LAB15, [id number] ####Typesetter Apprentice: MARY SOTELO ([phone])[facility] [place] [address] [place] CO2 [Moles/Vol] 23 mmol/L Normal 22-30 [facility] Comment on above: Performed By: #### L AB113, LAB15, [id number] ####Typesetter Apprentice: MARY SOTELO ([phone])[facility] [place] [address] [place] Creatinine [Mass/Vol] 1.55 mg/dL High 0.52-1.04 [facility] Comment on above: Performed By: #### L AB113, LAB15, [id number] ####Typesetter Apprentice: MARY SOTELO ([phone])[facility])[address] [place] [address] GLOMERULAR FILTRATION RATE ML/MIN/1.73 SQ M.PREDICTED 37.3 mL/min/1.73m*2 Low >60.0 [facility] Comment on above: Result Comment: Calc ulation based on the Chronic Kidney Disease Epidemiology Collaboration (CKD-EPI) equation refit without adjustment for race Performed By: #### Dora AB113, LAB15, [id number] ####Typesetter Apprentice: MARY SOTELO ([phone])[facility] ([facility])[address] [place] [address] Glucose [Mass/Vol] 212 mg/dL High 70-100 [facility] Comment on above: Performed By: #### Dora AB113, LAB15, [id number] ####Typesetter Apprentice: MARY SOTELO ([phone])[facility] ([facility])[address] [place] [address] Potassium [Moles/Vol] 4.1 mmol/L Normal 3.5-5.1 [facility] Comment on above: Performed By: #### L AB113, LAB15, [id number] ####Typesetter Apprentice: MARY SOTELO ([phone])[facility] ([facility])[address] [place] [address] [place] Sodium [Moles/Vol] 134 mmol/L Low 135-145 [facility] Comment on above: Performed By: #### L AB113, LAB15, [id number] ####Typesetter Apprentice: MARY SOTELO ([phone])[facility])[address] [place] [address] [place] Urea nitrogen [Mass/Vol] 21 mg/dL High 7-17 [facility] Comment on above: Performed By: #### L AB113, LAB15, [id number] ####Typesetter Apprentice: MARY [phone])[facility] [place] [address] Basic metabolic 1998 panelon 08-02-2024 Anion gap [Moles/Vol] 3 mmol/L 3 - 13 mmol/L [facility] Calcium [Mass/Vol] 7.4 mg/dL Low 8.4 - 10. 4 mg/dL [facility] Chloride [Moles/Vol] 107 mmol/L 98 - 10 7 mmol/L [facility] CO2 [Moles/Vol] 23 mmol/L 22 - 30 mmol/L [facility] Creatinine [Mass/Vol] 1.55 mg/dL High 0.52 - 1.04 mg/dL [facility] GFR/1.73 sq M.predicted (S/P/Bld) [Vol rate/Area] 37.3 mL/min Low - PINF [facility] Glucose [Mass/Vol] 212 mg/dL High 70 - 100 mg/dL [facility] Interpretation and review of laboratory results Abnormal [facility] Potassium [Moles/Vol] 4.1 mmol/L 3.5 - 5.1 mmol/L [facility] Sodium [Moles/Vol] 134 mmol/L Low 135 - 145 mmol/L [facility] Urea nitrogen [Mass/Vol] 21 mg/dL High 7 - 17 mg/dL [facility] CALCIUM, IONIZEDon CALCIUM IONIZED 4.30 mg/dL Normal 4.30-5.20 [facility] Comment on above: Performed By: #### L [id number] ####Typesetter Apprentice: MARY SOTELO ([phone])[facility] ([facility])[address] [place] [address] PH, IONIZED CALCIUM 7.36 Normal 7.31-7.46 [facility] Comment on above: Performed By: #### L [id number] ####Typesetter Apprentice: MARY SOTELO ([phone])[facility] ([facility])[address] [place] [address] CARECOORDon 08-02-2024 CARECOORD Normal [facility] CARECOORD Normal [facility] CBC W Auto Differential pane l (Bld)on 08-02-2024 Basophils (Bld) [#/Vol] 0.0 10*3/uL 0.0 - 0.2 10*3/uL [facility] Basophils/100 WBC (Bld) 0.1 % 0.0 - 2.0 % [facility] Eosinophils (Bld) [#/Vol] 0.0 10*3/uL 0.0 - 0.5 10*3/uL [facility] Eosinophils/100 WBC (Bld) 0.4 % 0.0 - 6.0 % [facility] Erythrocyte distribution width (RBC) [Ratio] 17.8 % High 11.5 - 15.0 % [facility] Hematocrit (Bld) [Volume fraction] 24.7 % Low 35.0 - 47.0 % [facility] Hemoglobin (Bld) [Mass/Vol] 7.8 g/dL Low 11.7 - 16.0 g/dL [facility] Immature granulocytes (Bld) [#/Vol] 0.1 10*3/uL High NINF - 0.1 10*3/uL [facility] Immature granulocytes/100 WBC (Bld) 0.6 % 0.0 - 2.0 % [facility] Interpretation and review of laboratory results Abnormal [facility] Lymphocytes (Bld) [#/Vol] 0.4 10*3/uL Low 1.0 - 4.3 10*3/uL [facility] Lymphocytes/100 WBC (Bld) 4.5 % Low 15.0 - 45.0 % [facility] MCH (RBC) [Entitic mass] 28.4 pg 26.0 - 34.0 pg [facility] MCHC (RBC) [Mass/Vol] 31.6 % 30.5 - 36.0 % [facility] MCV (RBC) [Entitic vol] 89.8 fL 77.0 - 99.0 fL [facility] Monocytes (Bld) [#/Vol] 0.2 10*3/uL 0.0 - 0.9 10*3/uL [facility] Monocytes/100 WBC (Bld) 2.1 % Low 5.0 - 13.0 % [facility] Neutrophils (Bld) [#/Vol] 9.0 10*3/uL High 1.8 - 7.5 10*3/uL [facility] Neutrophils/100 WBC (Bld) 92.3 % High 38.0 - 82.0 % [facility] Nucleated RBC/100 WBC (Bld) [Ratio] 0.0 % [facility] Platelet mean volume (Bld) [Entitic vol] 10.4 fL 9.0 - 12.7 fL [facility] Platelets (Bld) [#/Vol] 177 10*3/uL 140 - 440 10*3/uL [facility] RBC (Bld) [#/Vol] 2.75 10*6/uL Low 3.80 - 5.2 0 10*6/uL [facility] WBC (Bld) [#/Vol] 9.8 10*3/uL 3.6 - 10.7 10*3/uL [facility] CBC WITH AUTO DIFFERENTIALon 08-02-2024 Basophils (Bld) [#/Vol] 0.0 10*3/uL Normal 0.0-0.2 [facility] Comment on above: Performed By: #### L [id number] ####Typesetter Apprentice: MARY SOTELO ([phone])[address] Basophils/100 WBC (Bld) 0.1 % Normal 0.0-2.0 [facility] Comment on above: Performed By: #### L [id number] ####Typesetter Apprentice: MARY SOTELO ([phone])[address] Eosinophils (Bld) [#/Vol] 0.0 10*3/uL Normal 0.0-0.5 [facility] Comment on above: Performed By: #### L [id number] ####Typesetter Apprentice: MARY SOTELO ([phone])[facility])[address] [place] [address] Eosinophils/100 WBC (Bld) 0.4 % Normal 0.0-6.0 [facility] Comment on above: Performed By: #### L [id number] ####Typesetter Apprentice: MARY SOTELO ([phone])[facility])[address] [place] [address] Erythrocyte distribution width (RBC) [Ratio] 17.8 % High 11.5-15.0 [facility] Comment on above: Performed By: #### L [id number] ####Typesetter Apprentice: MARY SOTELO ([phone])[facility])[address] [place] [address] Hematocrit (Bld) [Volume fraction] 24.7 % Low 35.0-47.0 [facility] Comment on above: Performed By: #### L [id number] ####Typesetter Apprentice: MARY SOTELO ([phone])[facility])[address] [place] [address] Hemoglobin (Bld) [Mass/Vol] 7.8 g/dL Low 11.7-16.0 [facility] Comment on above: Performed By: #### L [id number] ####Typesetter Apprentice: MARY SOTELO ([phone])[facility])[address] [place] [address] IMMATURE GRANS % 0.6 % Normal 0.0-2.0 [facility] Comment on above: Performed By: #### L [id number] ####Typesetter Apprentice: MARY SOTELO ([phone])[facility])[address] [place] [address] IMMATURE GRANS ABSOLUTE 0.1 10*3/uL High <0.1 [facility] Comment on above: Performed By: #### L [id number] ####Typesetter Apprentice: MARY SOTELO ([phone])[facility])[address] [place] [address] Lymphocytes (Bld) [#/Vol] 0.4 10*3/uL Low 1.0-4.3 [facility] Comment on above: Performed By: #### L [id number] ####Typesetter Apprentice: MARY SOTELO ([phone])[facility])[address] [place] [address] Lymphocytes/100 WBC (Bld) 4.5 % Low 15.0-45.0 [facility] Comment on above: Performed By: #### L [id number] ####Typesetter Apprentice: MARY SOTELO ([phone])[facility])[address] [place] [address] MCH (RBC) [Entitic mass] 28.4 pg Normal 26.0-34.0 [facility] Comment on above: Performed By: #### L [id number] ####Typesetter Apprentice: MARY SOTELO ([phone])[facility])[address] [place] [address] MCHC 31.6 % Normal 30.5-36.0 [facility] Comment on above: Performed By: #### L [id number] ####Typesetter Apprentice: MARY SOTELO ([phone])[facility])[address] [place] [address] MCV (RBC) [Entitic vol] 89.8 fL Normal 77.0-99.0 [facility] Comment on above: Performed By: #### L [id number] ####Typesetter Apprentice: MARY SOTELO ([phone])[facility] ([facility])[address] [place] [address] Monocytes (Bld) [#/Vol] 0.2 10*3/uL Normal 0.0-0.9 [facility] Comment on above: Performed By: #### L [id number] ####Typesetter Apprentice: MARY SOTELO ([phone])[facility])[address] [place] [address] Monocytes/100 WBC (Bld) 2.1 % Low 5.0-13.0 [facility] Comment on above: Performed By: #### L [id number] ####Typesetter Apprentice: MARY SOTELO ([phone])[facility] ([facility])[address] [place] [address] NEUTROPHILS ABSOLUTE 9.0 10*3/uL High 1.8-7.5 [facility] Comment on above: Performed By: #### L [id number] ####Typesetter Apprentice: MARY SOTELO ([phone])[facility])[address] [place] [address] Neutrophils/100 WBC (Bld) 92.3 % High 38.0-82.0 [facility] Comment on above: Performed By: #### L [id number] ####Typesetter Apprentice: MARY SOTELO ([phone])[facility])[address] [place] [address] NRBC 0.0 /100 WBCs Normal 0.0-2.0 [facility] Comment on above: Performed By: #### L [id number] ####Typesetter Apprentice: MARY SOTELO ([phone])[facility] ([facility])[address] [place] [address] Platelet mean volume (Bld) [Entitic vol] 10.4 fL Normal 9.0-12.7 [facility] Comment on above: Performed By: #### L [id number] ####Typesetter Apprentice: MARY SOTELO ([phone])[facility] ([facility])[address] [place] [address] Platelets (Bld) [#/Vol] 177 10*3/uL Normal 140-440 [facility] Comment on above: Performed By: #### L [id number] ####Typesetter Apprentice: MARY SOTELO ([phone])[facility])[address] [place] [address] RBC (Bld) [#/Vol] 2.75 10*6/uL Low 3.80-5.20 [facility] Comment on above: Performed By: #### L [id number] ####Typesetter Apprentice: MARY SOTELO ([phone])[facility])[address] [place] [address] WBC (Bld) [#/Vol] 9.8 10*3/uL Normal 3.6-10.7 [facility] Comment on above: Performed By: #### L [id number] ####Typesetter Apprentice: MARY SOTELO ([phone])[facility])[address] [place] [address] Calcium.ionized [Moles/Vol]o n 08-02-2024 Calcium.ionized (Bld) [Moles/Vol] 4.30 mg/dL 4.30 - 5.20 mg/dL [facility] Interpretation and review of laboratory results Normal [facility] PH, IONIZED CALCIUM 7.36 7.31 - 7.46 [facility] ECG 12-LEADon 08-02-2024 ECG 12-LEAD IMPRESSION: Unclear atrial rhythm - consider accelerated junctional Right bundle branch block Electronically Signed On 08-02-2024 08:53:44 EDT by Khai Duong Normal [facility] - Chemistry and C hemistry - challengeon 08-02-2024 Glucose [Mass/Vol] 211 mg/dL High 70 - 100 mg/dL [facility] Glucose [Mass/Vol] 202 mg/dL High 70 - 100 mg/dL [facility] Glucose [Mass/Vol] 180 mg/dL High 70 - 100 mg/dL [facility] Magnesium [Mass/Vol] 2.3 mg/dL 1.6 - 2 .3 mg/dL [facility] Glucose [Mass/Vol] 217 mg/dL High 70 - 100 mg/dL [facility] MAGNESIUMon 08-02-2024 Magnesium [Mass/Vol] 2.3 mg/dL Normal 1.6-2.3 [facility] Comment on above: Performed By: #### L AB113, LAB15, [id number] ####Typesetter Apprentice: MARY SOTELO ([phone])[address] No Panel Informationon 08-02 Interpretation and review of laboratory results Abnormal [facility] Interpretation and review of laboratory results Abnormal [facility] CV EPIPHANY [facility] Interpretation and review of laboratory results Abnormal [facility] Interpretation and review of laboratory results Normal [facility] Interpretation and review of laboratory results Abnormal [facility] No Panel InformationOrdered By: Khai Duong on 08-02-2024 P [place] 0 degrees [facility] [employer] Work Phone: LA Interval 0 ms [facility] Work Phone: QRS [place] -118 degrees [facility] [employer] Work Phone: QRSD Interval 145 ms [facility] Work Phone: QT Interval 477 ms [facility] Work Phone: QTC Interval 528 ms [facility] Work Phone: T Wave [place] 36 degrees [facility] Work Phone: [facility] Work Phone: PHOSPHORUSon 08-02-2024 Phosphate [Mass/Vol] 3.0 mg/dL Normal 2.5-4.5 [facility] Comment on above: Performed By: #### L AB113, LAB15, [id number] ####Typesetter Apprentice: MARY SOTELO ([phone])[facility])[address] [place] [address] [place] Phosphate [Moles/Vol]on 07-06 Phosphate [Mass/Vol] 3.0 mg/dL 2.5 - 4 .5 mg/dL [facility] Progress Noteon 08-02-2024 Progress Note Normal [facility] Progress Note Normal [facility] Progress Note Normal [facility] Progress Note Normal [facility] Progress Note Normal [facility] Progress Note Normal [facility] Vital signsOrdered By: Khai Duong on 08-02-2024 Heart rate 73 /min bpm [facility] [employer] Work Phone: CALCIUM, IONIZEDon CALCIUM IONIZED 4.10 mg/dL Low 4.30-5.20 [facility] Comment on above: Performed By: #### L [id number] ####Typesetter Apprentice: MARY SOTELO ([phone])[facility] [place] [address] PH, IONIZED CALCIUM 7.38 Normal 7.31-7.46 [facility] Comment on above: Performed By: #### L [id number] ####Typesetter Apprentice: MARY SOTELO ([phone])[facility] [place] [address] CALCIUM IONIZED 4.30 mg/dL Normal 4.30-5.20 [facility] Comment on above: Performed By: #### L [id number] ####Typesetter Apprentice: MARY SOTELO ([phone])[facility] ([facility])[address] [place] [address] PH, IONIZED CALCIUM 7.32 Normal 7.31-7.46 [facility] Comment on above: Performed By: #### L [id number] ####Typesetter Apprentice: MARY SOTELO ([phone])[facility] ([facility])[address] [place] [address] CALCIUM IONIZED 4.50 mg/dL Normal 4.30-5.20 [facility] Comment on above: Performed By: #### L [id number] ####Typesetter Apprentice: MARY SOTELO ([phone])[facility])[address] [place] [address] PH, IONIZED CALCIUM 7.31 Normal 7.31-7.46 [facility] Comment on above: Performed By: #### L [id number] ####Typesetter Apprentice: MARY SOTELO ([phone])[facility] ([facility])[address] [place] [address] CBC W Auto Differential pane l (Bld)on 08-01-2024 Basophils (Bld) [#/Vol] 0.0 10*3/uL 0.0 - 0.2 10*3/uL [facility] Basophils/100 WBC (Bld) 0.1 % 0.0 - 2.0 % [facility] Eosinophils (Bld) [#/Vol] 0.1 10*3/uL 0.0 - 0.5 10*3/uL [facility] Eosinophils/100 WBC (Bld) 0.7 % 0.0 - 6.0 % [facility] Erythrocyte distribution width (RBC) [Ratio] 17.1 % High 11.5 - 15.0 % [facility] Hematocrit (Bld) [Volume fraction] 25.9 % Low 35.0 - 47.0 % [facility] Hemoglobin (Bld) [Mass/Vol] 8.3 g/dL Low 11.7 - 16.0 g/dL [facility] Immature granulocytes (Bld) [#/Vol] 0.0 10*3/uL NINF - 0.1 10*3/uL [facility] [employer] Immature granulocytes/100 WBC (Bld) 0.3 % 0.0 - 2.0 % [facility] Interpretation and review of laboratory results Abnormal [facility] [employer] Lymphocytes (Bld) [#/Vol] 1.0 10*3/uL 1.0 - 4.3 10*3/uL [facility] Lymphocytes/100 WBC (Bld) 9.9 % Low 15.0 - 45.0 % [facility] MCH (RBC) [Entitic mass] 28.2 pg 26.0 - 34.0 pg [facility] MCHC (RBC) [Mass/Vol] 32.0 % 30.5 - 36.0 % [facility] MCV (RBC) [Entitic vol] 88.1 fL 77.0 - 99.0 fL [facility] Monocytes (Bld) [#/Vol] 0.5 10*3/uL 0.0 - 0.9 10*3/uL [facility] Monocytes/100 WBC (Bld) 4.9 % Low 5.0 - 13.0 % [facility] Neutrophils (Bld) [#/Vol] 8.7 10*3/uL High 1.8 - 7.5 10*3/uL [facility] Neutrophils/100 WBC (Bld) 84.1 % High 38.0 - 82.0 % [facility] [employer] Nucleated RBC/100 WBC (Bld) [Ratio] 0.0 % [facility] [employer] Platelet mean volume (Bld) [Entitic vol] 11.0 fL 9.0 - 12.7 fL [facility] Platelets (Bld) [#/Vol] 156 10*3/uL 140 - 440 10*3/uL [facility] RBC (Bld) [#/Vol] 2.94 10*6/uL Low 3.80 - 5.2 0 10*6/uL [facility] WBC (Bld) [#/Vol] 10.4 10*3/uL 3.6 - 10.7 10*3/uL [facility] CBC WITH AUTO DIFFERENTIALon 08-01-2024 Basophils (Bld) [#/Vol] 0.0 10*3/uL Normal 0.0-0.2 [facility] Comment on above: Performed By: #### L [id number] ####Typesetter Apprentice: MARY SOTELO ([phone])[facility] ([facility])[address] [place] [address] Basophils/100 WBC (Bld) 0.1 % Normal 0.0-2.0 [facility] Comment on above: Performed By: #### L [id number] ####Typesetter Apprentice: MARY SOTELO ([phone])[facility])[address] [place] [address] Eosinophils (Bld) [#/Vol] 0.1 10*3/uL Normal 0.0-0.5 [facility] Comment on above: Performed By: #### L [id number] ####Typesetter Apprentice: MARY SOTELO ([phone])[facility])[address] [place] [address] Eosinophils/100 WBC (Bld) 0.7 % Normal 0.0-6.0 [facility] Comment on above: Performed By: #### L [id number] ####Typesetter Apprentice: MARY SOTELO ([phone])[facility] ([facility])[address] [place] [address] Erythrocyte distribution width (RBC) [Ratio] 17.1 % High 11.5-15.0 [facility] Comment on above: Performed By: #### L [id number] ####Typesetter Apprentice: MARY SOTELO ([phone])[address] Hematocrit (Bld) [Volume fraction] 25.9 % Low 35.0-47.0 [facility] Comment on above: Performed By: #### L [id number] ####Typesetter Apprentice: MARY SOTELO ([phone])[facility])[address] [place] [address] Hemoglobin (Bld) [Mass/Vol] 8.3 g/dL Low 11.7-16.0 [facility] Comment on above: Performed By: #### L [id number] ####Typesetter Apprentice: MARY SOTELO ([phone])[facility])[address] [place] [address] IMMATURE GRANS % 0.3 % Normal 0.0-2.0 [facility] Comment on above: Performed By: #### L [id number] ####Typesetter Apprentice: MARY SOTELO ([phone])[facility])[address] [place] [address] IMMATURE GRANS ABSOLUTE 0.0 10*3/uL Normal <0.1 [facility] Comment on above: Performed By: #### L [id number] ####Typesetter Apprentice: MARY SOTELO ([phone])[facility])[address] [place] [address] Lymphocytes (Bld) [#/Vol] 1.0 10*3/uL Normal 1.0-4.3 [facility] Comment on above: Performed By: #### L [id number] ####Typesetter Apprentice: MARY SOTELO ([phone])[facility])[address] [place] [address] Lymphocytes/100 WBC (Bld) 9.9 % Low 15.0-45.0 [facility] Comment on above: Performed By: #### L [id number] ####Typesetter Apprentice: MARY SOTELO ([phone])[facility])[address] [place] [address] MCH (RBC) [Entitic mass] 28.2 pg Normal 26.0-34.0 [facility] Comment on above: Performed By: #### L [id number] ####Typesetter Apprentice: MARY SOTELO ([phone])[facility])[address] [place] [address] MCHC 32.0 % Normal 30.5-36.0 [facility] Comment on above: Performed By: #### L [id number] ####Typesetter Apprentice: MARY SOTELO ([phone])[facility])[address] [place] [address] MCV (RBC) [Entitic vol] 88.1 fL Normal 77.0-99.0 [facility] Comment on above: Performed By: #### L [id number] ####Typesetter Apprentice: MARY SOTELO ([phone])[facility] ([facility])[address] [place] [address] Monocytes (Bld) [#/Vol] 0.5 10*3/uL Normal 0.0-0.9 [facility] Comment on above: Performed By: #### L [id number] ####Typesetter Apprentice: MARY SOTELO ([phone])[facility] ([facility])[address] [place] [address] Monocytes/100 WBC (Bld) 4.9 % Low 5.0-13.0 [facility] Comment on above: Performed By: #### L [id number] ####Typesetter Apprentice: MARY SOTELO ([phone])[facility] ([facility])[address] [place] [address] NEUTROPHILS ABSOLUTE 8.7 10*3/uL High 1.8-7.5 [facility] Comment on above: Performed By: #### L [id number] ####Typesetter Apprentice: MARY SOTELO ([phone])[facility] ([facility])[address] [place] [address] Neutrophils/100 WBC (Bld) 84.1 % High 38.0-82.0 [facility] Comment on above: Performed By: #### L [id number] ####Typesetter Apprentice: MARY SOTELO ([phone])[facility] ([facility])[address] [place] [address] NRBC 0.0 /100 WBCs Normal 0.0-2.0 [facility] Comment on above: Performed By: #### L [id number] ####Typesetter Apprentice: MARY SOTELO ([phone])[facility])[address] [place] [address] Platelet mean volume (Bld) [Entitic vol] 11.0 fL Normal 9.0-12.7 [facility] Comment on above: Performed By: #### L [id number] ####Typesetter Apprentice: MARY SOTELO ([phone])[facility] [place] [address] Platelets (Bld) [#/Vol] 156 10*3/uL Normal 140-440 [facility] Comment on above: Performed By: #### L [id number] ####Typesetter Apprentice: MARY SOTELO ([phone])[facility])[address] [place] [address] RBC (Bld) [#/Vol] 2.94 10*6/uL Low 3.80-5.20 [facility] Comment on above: Performed By: #### L [id number] ####Typesetter Apprentice: MARY SOTELO ([phone])[facility])[address] [place] [address] WBC (Bld) [#/Vol] 10.4 10*3/uL Normal 3.6-10.7 [facility] Comment on above: Performed By: #### L [id number] ####Typesetter Apprentice: MARY SOTELO ([phone])[facility] ([facility])[address] [place] [address] Calcium.ionized [Moles/Vol]o n 08-01-2024 Calcium.ionized (Bld) [Moles/Vol] 4.10 mg/dL Low 4.30 - 5.20 mg/dL [facility] Interpretation and review of laboratory results Abnormal [facility] PH, IONIZED CALCIUM 7.38 7.31 - 7.46 [facility] Calcium.ionized (Bld) [Moles/Vol] 4.30 mg/dL 4.30 - 5.20 mg/dL [facility] Interpretation and review of laboratory results Normal [facility] PH, IONIZED CALCIUM 7.32 7.31 - 7.46 [facility] Calcium.ionized (Bld) [Moles/Vol] 4.50 mg/dL 4.30 - 5.20 mg/dL [facility] Interpretation and review of laboratory results Normal [facility] PH, IONIZED CALCIUM 7.31 7.31 - 7.46 [facility] IDNon 08-01-2024 IDN Normal [facility] - Chemistry and C hemistry - challengeon 08-01-2024 Glucose [Mass/Vol] 192 mg/dL High 70 - 100 mg/dL [facility] Glucose [Mass/Vol] 170 mg/dL High 70 - 100 mg/dL [facility] Glucose [Mass/Vol] 166 mg/dL High 70 - 100 mg/dL [facility] Glucose [Mass/Vol] 120 mg/dL High 70 - 100 mg/dL [facility] Glucose [Mass/Vol] 161 mg/dL High 70 - 100 mg/dL [facility] No Panel Informationon 08-01 Interpretation and review of laboratory results Abnormal [facility] Interpretation and review of laboratory results Abnormal [facility] Interpretation and review of laboratory results Abnormal [facility] Interpretation and review of laboratory results Abnormal [facility] Interpretation and review of laboratory results Abnormal [facility] Progress Noteon 08-01-2024 Progress Note Normal [facility] Progress Note Normal [facility] Progress Note Normal [facility] RENAL FUNCTION PANELon 08-01 Albumin [Mass/Vol] 2.1 g/dL Low 3.5-5.0 [facility] Comment on above: Performed By: #### L [id number] ####Typesetter Apprentice: MARY SOTELO ([phone])[facility])[address] [place] [address] Anion gap [Moles/Vol] 3 mmol/L Normal 3-13 [facility] Comment on above: Performed By: #### L [id number] ####Typesetter Apprentice: MARY SOTELO ([phone])[facility] ([facility])[address] [place] [address] Calcium [Mass/Vol] 7.2 mg/dL Low 8.4-10.4 [facility] Comment on above: Performed By: #### L [id number] ####Typesetter Apprentice: MARY SOTELO ([phone])[facility] ([facility])[address] [place] [address] Chloride [Moles/Vol] 106 mmol/L Normal 98-107 [facility] Comment on above: Performed By: #### L [id number] ####Typesetter Apprentice: MARY SOTELO ([phone])[facility] ([facility])[address] [place] [address] CO2 [Moles/Vol] 23 mmol/L Normal 22-30 [facility] Comment on above: Performed By: #### L [id number] ####Typesetter Apprentice: MARY SOTELO ([phone])[facility])[address] [place] [address] Creatinine [Mass/Vol] 0.87 mg/dL Normal 0.52-1.04 [facility] Comment on above: Performed By: #### L AB19 ####Typesetter Apprentice: MARY SOTELO ([phone])[facility])[address] [place] [address] GLOMERULAR FILTRATION RATE ML/MIN/1.73 SQ M.PREDICTED 74.5 mL/min/1.73m*2 Normal >60.0 [facility] Comment on above: Result Comment: Calc ulation based on the Chronic Kidney Disease Epidemiology Collaboration (CKD-EPI) equation refit without adjustment for race Performed By: #### L [id number] ####Typesetter Apprentice: MARY SOTELO ([phone])[facility])[address] [place] [address] Glucose [Mass/Vol] 170 mg/dL High 70-100 [facility] Comment on above: Performed By: #### L AB19 ####Typesetter Apprentice: MARY SOTELO ([phone])[facility])[address] [place] [address] Phosphate [Mass/Vol] 2.3 mg/dL Low 2.5-4.5 [facility] Comment on above: Performed By: #### L AB19 ####Typesetter Apprentice: MARY SOTELO ([phone])[facility])[address] [place] [address] Potassium [Moles/Vol] 4.1 mmol/L Normal 3.5-5.1 [facility] Comment on above: Performed By: #### L [id number] ####Typesetter Apprentice: MARY SOTELO ([phone])[facility] [place] [address] Sodium [Moles/Vol] 132 mmol/L Low 135-145 [facility] Comment on above: Performed By: #### L [id number] ####Typesetter Apprentice: MARY SOTELO ([phone])[facility] [place] [address] [place] Urea nitrogen [Mass/Vol] 13 mg/dL Normal 7-17 [facility] Comment on above: Performed By: #### L [id number] ####Typesetter Apprentice: MARY SOTELO ([phone])[facility] ([facility])[address] [place] [address] Albumin [Mass/Vol] 2.0 g/dL Low 3.5-5.0 [facility] Comment on above: Performed By: #### L [id number] ####Typesetter Apprentice: MARY SOTELO ([phone])[facility] ([facility])[address] [place] [address] [place] Anion gap [Moles/Vol] 2 mmol/L Low 3-13 [facility] Comment on above: Performed By: #### L AB19 ####Typesetter Apprentice: MARY SOTELO ([phone])[facility] ([facility])[address] [place] [address] Calcium [Mass/Vol] 7.4 mg/dL Low 8.4-10.4 [facility] Comment on above: Performed By: #### L [id number] ####Typesetter Apprentice: MARY SOTELO ([phone])[facility] [place] [address] [place] Chloride [Moles/Vol] 106 mmol/L Normal 98-107 [facility] Comment on above: Performed By: #### L AB19 ####Typesetter Apprentice: MARY SOTELO ([phone])[facility] [place] [address] [place] CO2 [Moles/Vol] 24 mmol/L Normal 22-30 [facility] Comment on above: Performed By: #### L AB19 ####Typesetter Apprentice: MARY SOTELO ([phone])[facility])[address] [place] [address] Creatinine [Mass/Vol] 0.90 mg/dL Normal 0.52-1.04 [facility] Comment on above: Performed By: #### L AB19 ####Typesetter Apprentice: MARY SOTELO ([phone])[facility])[address] [place] [address] GLOMERULAR FILTRATION RATE ML/MIN/1.73 SQ M.PREDICTED 71.5 mL/min/1.73m*2 Normal >60.0 [facility] Comment on above: Result Comment: Calc ulation based on the Chronic Kidney Disease Epidemiology Collaboration (CKD-EPI) equation refit without adjustment for race Performed By: #### L AB19 ####Typesetter Apprentice: MARY SOTELO ([phone])[facility])[address] [place] [address] Glucose [Mass/Vol] 119 mg/dL High 70-100 [facility] Comment on above: Performed By: #### L AB19 ####Typesetter Apprentice: MARY SOTELO ([phone])[facility])[address] [place] [address] Phosphate [Mass/Vol] 2.6 mg/dL Normal 2.5-4.5 [facility] Comment on above: Performed By: #### L AB19 ####Typesetter Apprentice: MARY SOTELO ([phone])[facility])[address] [place] [address] Potassium [Moles/Vol] 4.0 mmol/L Normal 3.5-5.1 [facility] Comment on above: Performed By: #### L AB19 ####Typesetter Apprentice: MARY SOTELO ([phone])[facility])[address] [place] [address] Sodium [Moles/Vol] 133 mmol/L Low 135-145 [facility] Comment on above: Performed By: #### L AB19 ####Typesetter Apprentice: MARY SOTELO ([phone])[facility] ([facility])[address] [place] [address] Urea nitrogen [Mass/Vol] 14 mg/dL Normal 7-17 [facility] Comment on above: Performed By: #### L AB19 ####Typesetter Apprentice: MARY SOTELO ([phone])[facility] ([facility])[address] [place] [address] Albumin [Mass/Vol] 2.1 g/dL Low 3.5-5.0 [facility] Comment on above: Performed By: #### L AB19 ####Typesetter Apprentice: MARY SOTELO ([phone])[facility] ([facility])[address] [place] [address] Anion gap [Moles/Vol] 3 mmol/L Normal 3-13 [facility] Comment on above: Performed By: #### L AB19 ####Typesetter Apprentice: MARY SOTELO ([phone])[facility] ([facility])[address] [place] [address] Calcium [Mass/Vol] 7.8 mg/dL Low 8.4-10.4 [facility] Comment on above: Performed By: #### L [id number] ####Typesetter Apprentice: MARY SOTELO ([phone])[facility] ([facility])[address] [place] [address] [place] Chloride [Moles/Vol] 105 mmol/L Normal 98-107 [facility] Comment on above: Performed By: #### L AB19 ####Typesetter Apprentice: MARY SOTELO ([phone])[facility] ([facility])[address] [place] [address] [place] CO2 [Moles/Vol] 25 mmol/L Normal 22-30 [facility] Comment on above: Performed By: #### L AB19 ####Typesetter Apprentice: MARY SOTELO ([phone])[facility] [place] [address] [place] Creatinine [Mass/Vol] 0.85 mg/dL Normal 0.52-1.04 [facility] Comment on above: Performed By: #### L AB19 ####Typesetter Apprentice: MARY SOTELO ([phone])[facility])[address] [place] [address] GLOMERULAR FILTRATION RATE ML/MIN/1.73 SQ M.PREDICTED 76.6 mL/min/1.73m*2 Normal >60.0 [facility] Comment on above: Result Comment: Calc ulation based on the Chronic Kidney Disease Epidemiology Collaboration (CKD-EPI) equation refit without adjustment for race Performed By: #### L AB19 ####Typesetter Apprentice: MARY SOTELO ([phone])[facility])[address] [place] [address] Glucose [Mass/Vol] 161 mg/dL High 70-100 [facility] Comment on above: Performed By: #### L AB19 ####Typesetter Apprentice: MARY SOTELO ([phone])[facility] ([facility])[address] [place] [address] Phosphate [Mass/Vol] 3.0 mg/dL Normal 2.5-4.5 [facility] Comment on above: Performed By: #### L AB19 ####Typesetter Apprentice: MARY SOTELO ([phone])[facility] ([facility])[address] [place] [address] Potassium [Moles/Vol] 4.2 mmol/L Normal 3.5-5.1 [facility] Comment on above: Performed By: #### L AB19 ####Typesetter Apprentice: MARY SOTELO ([phone])[facility] ([facility])[address] [place] [address] [place] Sodium [Moles/Vol] 133 mmol/L Low 135-145 [facility] Comment on above: Performed By: #### L AB19 ####Typesetter Apprentice: MARY SOTELO ([phone])[facility])[address] [place] [address] [place] Urea nitrogen [Mass/Vol] 15 mg/dL Normal 7-17 [facility] Comment on above: Performed By: #### L AB19 ####Typesetter Apprentice: MARY SOTELO ([phone])[facility] ([address] Renal function 2000 panelon 08-01-2024 Albumin [Mass/Vol] 2.1 g/dL Low 3.5 - 5.0 g/dL [facility] Anion gap [Moles/Vol] 3 mmol/L 3 - 13 mmol/L [facility] Calcium [Mass/Vol] 7.2 mg/dL Low 8.4 - 10. 4 mg/dL [facility] Chloride [Moles/Vol] 106 mmol/L 98 - 10 7 mmol/L [facility] CO2 [Moles/Vol] 23 mmol/L 22 - 30 mmol/L [facility] Creatinine [Mass/Vol] 0.87 mg/dL 0.52 - 1.04 mg/dL [facility] GFR/1.73 sq M.predicted (S/P/Bld) [Vol rate/Area] 74.5 mL/min - PINF [facility] Glucose [Mass/Vol] 170 mg/dL High 70 - 100 mg/dL [facility] Interpretation and review of laboratory results Abnormal [facility] Phosphate [Mass/Vol] 2.3 mg/dL Low 2.5 - 4 .5 mg/dL [facility] Potassium [Moles/Vol] 4.1 mmol/L 3.5 - 5.1 mmol/L [facility] Sodium [Moles/Vol] 132 mmol/L Low 135 - 145 mmol/L [facility] Urea nitrogen [Mass/Vol] 13 mg/dL 7 - 17 mg/dL [facility] Albumin [Mass/Vol] 2.0 g/dL Low 3.5 - 5.0 g/dL [facility] Anion gap [Moles/Vol] 2 mmol/L Low 3 - 13 mmol/L [facility] Calcium [Mass/Vol] 7.4 mg/dL Low 8.4 - 10. 4 mg/dL [facility] Chloride [Moles/Vol] 106 mmol/L 98 - 10 7 mmol/L [facility] CO2 [Moles/Vol] 24 mmol/L 22 - 30 mmol/L [facility] Creatinine [Mass/Vol] 0.90 mg/dL 0.52 - 1.04 mg/dL [facility] GFR/1.73 sq M.predicted (S/P/Bld) [Vol rate/Area] 71.5 mL/min - PINF [facility] Glucose [Mass/Vol] 119 mg/dL High 70 - 100 mg/dL [facility] Interpretation and review of laboratory results Abnormal [facility] Phosphate [Mass/Vol] 2.6 mg/dL 2.5 - 4 .5 mg/dL [facility] Potassium [Moles/Vol] 4.0 mmol/L 3.5 - 5.1 mmol/L [facility] Sodium [Moles/Vol] 133 mmol/L Low 135 - 145 mmol/L [facility] Urea nitrogen [Mass/Vol] 14 mg/dL 7 - 17 mg/dL [facility] Albumin [Mass/Vol] 2.1 g/dL Low 3.5 - 5.0 g/dL [facility] Anion gap [Moles/Vol] 3 mmol/L 3 - 13 mmol/L [facility] Calcium [Mass/Vol] 7.8 mg/dL Low 8.4 - 10. 4 mg/dL [facility] Chloride [Moles/Vol] 105 mmol/L 98 - 10 7 mmol/L [facility] CO2 [Moles/Vol] 25 mmol/L 22 - 30 mmol/L [facility] Creatinine [Mass/Vol] 0.85 mg/dL 0.52 - 1.04 mg/dL [facility] GFR/1.73 sq M.predicted (S/P/Bld) [Vol rate/Area] 76.6 mL/min - PINF [facility] Glucose [Mass/Vol] 161 mg/dL High 70 - 100 mg/dL [facility] Interpretation and review of laboratory results Abnormal [facility] Phosphate [Mass/Vol] 3.0 mg/dL 2.5 - 4 .5 mg/dL [facility] Potassium [Moles/Vol] 4.2 mmol/L 3.5 - 5.1 mmol/L [facility] Sodium [Moles/Vol] 133 mmol/L Low 135 - 145 mmol/L [facility] Urea nitrogen [Mass/Vol] 15 mg/dL 7 - 17 mg/dL [facility] ABO and Rh group Confirm Nom (Bld)on 07-31-2024 ABO group Nom (Bld) O [facility] D Ag Ql (RBC) Positive [facility] BLOOD GAS ARTERIALon 07-31-2 024 Base excess Calc (Bld) [Moles/Vol] -0.9000 mmol/L Normal -3.0-3.0 [facility] Comment on above: Performed By: #### L AB76 ####Typesetter Apprentice: MARY SOTELO ([phone])[facility] ([facility])[address] [place] [address] CO2 [Moles/Vol] 26.4 mmol/L Normal 23.0-27.0 [facility] Comment on above: Performed By: #### L AB76 ####Typesetter Apprentice: MARY SOTELO ([phone])[facility] ([facility])[address] [place] [address] HCO3 (Bld) [Moles/Vol] 25.0 mmol/L Normal 21.0-25.0 [facility] Comment on above: Performed By: #### L AB76 ####Typesetter Apprentice: MARY SOTELO ([phone])[facility] ([facility])[address] [place] [address] Hemoglobin (Bld) [Mass/Vol] 7.1 g/dL Normal Screen only [facility] Comment on above: Performed By: #### L AB76 ####Typesetter Apprentice: MARY SOTELO ([phone])[facility] ([facility])[address] [place] [address] OXYGEN SATURATION (%) IN ARTERIAL BLOOD 98.0 % Normal 95.0-100.0 [facility] Comment on above: Performed By: #### L AB76 ####Typesetter Apprentice: MARY SOTELO ([phone])[facility] ([facility])[address] [place] [address] PCO2 ARTERIAL 47.9 mm Hg High >35.0-<45.0 [facility] Comment on above: Performed By: #### L AB76 ####Typesetter Apprentice: MARY SOTELO ([phone])[facility] ([facility])[address] [place] [address] PH ARTERIAL 7.335 Low 7.350-7.450 [facility] Comment on above: Performed By: #### L AB76 ####Typesetter Apprentice: MARY SOTELO ([phone])[facility])[address] [place] [address] PO2 ARTERIAL 143.8 mm Hg High 80.0-100.0 [facility] Comment on above: Performed By: #### L AB76 ####Typesetter Apprentice: MARY SOTELO ([phone])[facility])[address] [place] [address] SOURCE OF OXYGEN Nasal cannula Normal [facility] Comment on above: Performed By: #### L AB76 ####Typesetter Apprentice: MARY SOTELO ([phone])[facility])[address] [place] [address] BLOOD TYPE AND SCREEN GELon 07-31-2024 ABO GROUPING O Normal [facility] Comment on above: Performed By: #### L [id number] ####Typesetter Apprentice: MARY SOTELO ([phone])[facility] ([facility])[address] [place] [address] RH TYPE IN BLOOD Positive Normal [facility] Comment on above: Performed By: #### L [id number] ####Typesetter Apprentice: MARY SOTELO ([phone])[facility] ([facility])[address] [place] [address] Blood type and Crossmatch benton dawson (Bld)on 07-31-2024 ABO group Nom (Bld) O [facility] Blood group antibody screen GEL Ql Negative [facility] D Ag Ql (RBC) [facility] CALCIUM, IONIZEDon 4 CALCIUM IONIZED 4.70 mg/dL Normal 4.30-5.20 [facility] Comment on above: Performed By: #### L AB54 ####Typesetter Apprentice: MARY SOTELO ([phone])[facility])[address] [place] [address] PH, IONIZED CALCIUM 7.31 Normal 7.31-7.46 [facility] Comment on above: Performed By: #### L AB54 ####Typesetter Apprentice: MARY SOTELO ([phone])[facility] ([facility])[address] [place] [address] CALCIUM IONIZED 4.80 mg/dL Normal 4.30-5.20 [facility] Comment on above: Performed By: #### L AB54 ####Typesetter Apprentice: MARY SOTELO ([phone])[facility] ([facility])[address] [place] [address] PH, IONIZED CALCIUM 7.36 Normal 7.31-7.46 [facility] Comment on above: Performed By: #### L AB54 ####Typesetter Apprentice: MARY SOTELO ([phone])[facility])[address] [place] [address] CALCIUM IONIZED 4.90 mg/dL Normal 4.30-5.20 [facility] Comment on above: Performed By: #### L AB54 ####Typesetter Apprentice: MARY SOTELO ([phone])[facility] ([facility])[address] [place] [address] PH, IONIZED CALCIUM 7.35 Normal 7.31-7.46 [facility] Comment on above: Performed By: #### L AB54 ####Typesetter Apprentice: MARY SOTELO ([phone])[facility] ([facility])[address] [place] [address] CALCIUM IONIZED 4.80 mg/dL Normal 4.30-5.20 [facility] Comment on above: Performed By: #### L AB54 ####Typesetter Apprentice: MARY SOTELO ([phone])[facility])[address] [place] [address] PH, IONIZED CALCIUM 7.38 Normal 7.31-7.46 [facility] Comment on above: Performed By: #### L AB54 ####Typesetter Apprentice: MARY SOTELO ([phone])[facility] ([facility])[address] [place] [address] CBC (HEMOGRAM)on 09-28-2024 Erythrocyte distribution width (RBC) [Ratio] 15.2 % High 11.5-15.0 [facility] Comment on above: Performed By: #### L [id number] ####Typesetter Apprentice: MARY SOTELO ([phone])[facility])[address] [place] [address] Hematocrit (Bld) [Volume fraction] 21.6 % Low 35.0-47.0 [facility] Comment on above: Performed By: #### L [id number] ####Typesetter Apprentice: MARY SOTELO ([phone])[facility])[address] [place] [address] Hemoglobin (Bld) [Mass/Vol] 6.8 g/dL Critically low 11.7-16.0 [facility] Comment on above: Performed By: #### L [id number] ####Typesetter Apprentice: MARY SOTELO ([phone])[facility])[address] [place] [address] MCH (RBC) [Entitic mass] 28.7 pg Normal 26.0-34.0 [facility] Comment on above: Performed By: #### L AB294 ####Typesetter Apprentice: MARY SOTELO ([phone])[facility])[address] [place] [address] MCHC 31.5 % Normal 30.5-36.0 [facility] Comment on above: Performed By: #### L AB294 ####Typesetter Apprentice: MARY SOTELO ([phone])[facility])[address] [place] [address] MCV (RBC) [Entitic vol] 91.1 fL Normal 77.0-99.0 [facility] Comment on above: Performed By: #### L [id number] ####Typesetter Apprentice: MARY SOTELO ([phone])[facility])[address] [place] [address] Platelet mean volume (Bld) [Entitic vol] 10.9 fL Normal 9.0-12.7 [facility] Comment on above: Performed By: #### L [id number] ####Typesetter Apprentice: MARY SOTELO ([phone])[facility])[address] [place] [address] Platelets (Bld) [#/Vol] 158 10*3/uL Normal 140-440 [facility] Comment on above: Performed By: #### L [id number] ####Typesetter Apprentice: MARY SOTELO ([phone])[facility] ([facility])[address] [place] [address] RBC (Bld) [#/Vol] 2.37 10*6/uL Low 3.80-5.20 [facility] Comment on above: Performed By: #### L [id number] ####Typesetter Apprentice: MARY SOTELO ([phone])[facility] ([facility])[address] [place] [address] WBC (Bld) [#/Vol] 15.0 10*3/uL High 3.6-10.7 [facility] Comment on above: Performed By: #### L [id number] ####Typesetter Apprentice: MARY SOTELO ([phone])[facility] ([facility])[address] [place] [address] CBC W Auto Differential pane l (Bld)on 07-31-2024 Basophils (Bld) [#/Vol] 0.0 10*3/uL 0.0 - 0.2 10*3/uL [facility] Basophils/100 WBC (Bld) 0.1 % 0.0 - 2.0 % [facility] Eosinophils (Bld) [#/Vol] 0.0 10*3/uL 0.0 - 0.5 10*3/uL [facility] Eosinophils/100 WBC (Bld) 0.2 % 0.0 - 6.0 % [facility] Erythrocyte distribution width (RBC) [Ratio] 15.2 % High 11.5 - 15.0 % [facility] Hematocrit (Bld) [Volume fraction] 22.3 % Low 35.0 - 47.0 % [facility] Hemoglobin (Bld) [Mass/Vol] 7.1 g/dL Low 11.7 - 16.0 g/dL [facility] Immature granulocytes (Bld) [#/Vol] 0.0 10*3/uL NINF - 0.1 10*3/uL [facility] Immature granulocytes/100 WBC (Bld) 0.3 % 0.0 - 2.0 % [facility] Interpretation and review of laboratory results Abnormal [facility] Lymphocytes (Bld) [#/Vol] 0.6 10*3/uL Low 1.0 - 4.3 10*3/uL [facility] Lymphocytes/100 WBC (Bld) 4.7 % Low 15.0 - 45.0 % [facility] MCH (RBC) [Entitic mass] 29.6 pg 26.0 - 34.0 pg [facility] MCHC (RBC) [Mass/Vol] 31.8 % 30.5 - 36.0 % [facility] MCV (RBC) [Entitic vol] 92.9 fL 77.0 - 99.0 fL [facility] Monocytes (Bld) [#/Vol] 0.6 10*3/uL 0.0 - 0.9 10*3/uL [facility] Monocytes/100 WBC (Bld) 4.4 % Low 5.0 - 13.0 % [facility] Neutrophils (Bld) [#/Vol] 12.0 10*3/uL High 1.8 - 7.5 10*3/uL [facility] Neutrophils/100 WBC (Bld) 90.3 % High 38.0 - 82.0 % [facility] Nucleated RBC/100 WBC (Bld) [Ratio] 0.0 % [facility] [employer] Platelet mean volume (Bld) [Entitic vol] 10.7 fL 9.0 - 12.7 fL [facility] Platelets (Bld) [#/Vol] 146 10*3/uL 140 - 440 10*3/uL [facility] RBC (Bld) [#/Vol] 2.40 10*6/uL Low 3.80 - 5.2 0 10*6/uL [facility] WBC (Bld) [#/Vol] 13.3 10*3/uL High 3.6 - 10.7 10*3/uL [facility] CBC W Auto Differential pane l (Bld)Ordered By: Olamide Orozco on 07-31-2024 Basophils (Bld) [#/Vol] 0.0 10*3/uL 0.0 - 0.2 10*3/uL [facility] Basophils/100 WBC (Bld) 0.1 % 0.0 - 2.0 % [facility] Eosinophils (Bld) [#/Vol] 0.0 10*3/uL 0.0 - 0.5 10*3/uL [facility] Eosinophils/100 WBC (Bld) 0.2 % 0.0 - 6.0 % [facility] Erythrocyte distribution width (RBC) [Ratio] 15.1 % High 11.5 - 15.0 % [facility] Hematocrit (Bld) [Volume fraction] 22.9 % Low 35.0 - 47.0 % [facility] Hemoglobin (Bld) [Mass/Vol] 7.2 g/dL Low 11.7 - 16.0 g/dL [facility] Immature granulocytes (Bld) [#/Vol] 0.1 10*3/uL High NINF - 0.1 10*3/uL [facility] Immature granulocytes/100 WBC (Bld) 0.4 % 0.0 - 2.0 % [facility] Interpretation and review of laboratory results Abnormal [facility] Lymphocytes (Bld) [#/Vol] 0.5 10*3/uL Low 1.0 - 4.3 10*3/uL [facility] Lymphocytes/100 WBC (Bld) 3.6 % Low 15.0 - 45.0 % [facility] MCH (RBC) [Entitic mass] 28.9 pg 26.0 - 34.0 pg [facility] MCHC (RBC) [Mass/Vol] 31.4 % 30.5 - 36.0 % [facility] MCV (RBC) [Entitic vol] 92.0 fL 77.0 - 99.0 fL [facility] Monocytes (Bld) [#/Vol] 0.3 10*3/uL 0.0 - 0.9 10*3/uL [facility] Monocytes/100 WBC (Bld) 2.0 % Low 5.0 - 13.0 % [facility] Neutrophils (Bld) [#/Vol] 13.2 10*3/uL High 1.8 - 7.5 10*3/uL [facility] Neutrophils/100 WBC (Bld) 93.7 % High 38.0 - 82.0 % [facility] Nucleated RBC/100 WBC (Bld) [Ratio] 0.0 % [facility] Platelet mean volume (Bld) [Entitic vol] 10.5 fL 9.0 - 12.7 fL [facility] Platelets (Bld) [#/Vol] 135 10*3/uL Low 140 - 440 10*3/uL [facility] RBC (Bld) [#/Vol] 2.49 10*6/uL Low 3.80 - 5.2 0 10*6/uL [facility] WBC (Bld) [#/Vol] 14.0 10*3/uL High 3.6 - 10.7 10*3/uL [facility] CBC WITH AUTO DIFFERENTIALon 07-31-2024 Basophils (Bld) [#/Vol] 0.0 10*3/uL Normal 0.0-0.2 [facility] Comment on above: Performed By: #### L [id number] ####Typesetter Apprentice: MARY SOTELO ([phone])[facility])[address] [place] [address] Basophils/100 WBC (Bld) 0.1 % Normal 0.0-2.0 [facility] Comment on above: Performed By: #### L [id number] ####Typesetter Apprentice: MARY SOTELO ([phone])[facility])[address] [place] [address] Eosinophils (Bld) [#/Vol] 0.0 10*3/uL Normal 0.0-0.5 [facility] Comment on above: Performed By: #### L [id number] ####Typesetter Apprentice: MARY SOTELO ([phone])[facility])[address] [place] [address] Eosinophils/100 WBC (Bld) 0.2 % Normal 0.0-6.0 [facility] Comment on above: Performed By: #### L [id number] ####Typesetter Apprentice: MARY SOTELO ([phone])[facility])[address] [place] [address] Erythrocyte distribution width (RBC) [Ratio] 15.2 % High 11.5-15.0 [facility] Comment on above: Performed By: #### L [id number] ####Typesetter Apprentice: MARY SOTELO ([phone])[facility])[address] [place] [address] Hematocrit (Bld) [Volume fraction] 22.3 % Low 35.0-47.0 [facility] Comment on above: Performed By: #### L [id number] ####Typesetter Apprentice: MARY SOTELO ([phone])[facility])[address] [place] [address] Hemoglobin (Bld) [Mass/Vol] 7.1 g/dL Low 11.7-16.0 [facility] Comment on above: Performed By: #### L [id number] ####Typesetter Apprentice: MARY SOTELO ([phone])[address] IMMATURE GRANS % 0.3 % Normal 0.0-2.0 [facility] Comment on above: Performed By: #### L [id number] ####Typesetter Apprentice: MARY SOTELO ([phone])[address] IMMATURE GRANS ABSOLUTE 0.0 10*3/uL Normal <0.1 [facility] Comment on above: Performed By: #### L [id number] ####Typesetter Apprentice: MARY SOTELO ([phone])[facility])[address] [place] [address] Lymphocytes (Bld) [#/Vol] 0.6 10*3/uL Low 1.0-4.3 [facility] Comment on above: Performed By: #### L [id number] ####Typesetter Apprentice: MARY SOTELO ([phone])[address] Lymphocytes/100 WBC (Bld) 4.7 % Low 15.0-45.0 [facility] Comment on above: Performed By: #### L [id number] ####Typesetter Apprentice: MARY SOTELO ([phone])[facility])[address] [place] [address] MCH (RBC) [Entitic mass] 29.6 pg Normal 26.0-34.0 [facility] Comment on above: Performed By: #### L [id number] ####Typesetter Apprentice: MARY SOTELO ([phone])[facility])[address] [place] [address] MCHC 31.8 % Normal 30.5-36.0 [facility] Comment on above: Performed By: #### L [id number] ####Typesetter Apprentice: MARY SOTELO ([phone])[facility])[address] [place] [address] MCV (RBC) [Entitic vol] 92.9 fL Normal 77.0-99.0 [facility] Comment on above: Performed By: #### L [id number] ####Typesetter Apprentice: MARY SOTELO ([phone])[facility])[address] [place] [address] Monocytes (Bld) [#/Vol] 0.6 10*3/uL Normal 0.0-0.9 [facility] Comment on above: Performed By: #### L [id number] ####Typesetter Apprentice: MARY SOTELO ([phone])[facility])[address] [place] [address] Monocytes/100 WBC (Bld) 4.4 % Low 5.0-13.0 [facility] Comment on above: Performed By: #### L [id number] ####Typesetter Apprentice: MARY SOTELO ([phone])[facility])[address] [place] [address] NEUTROPHILS ABSOLUTE 12.0 10*3/uL High 1.8-7.5 [facility] Comment on above: Performed By: #### L [id number] ####Typesetter Apprentice: MARY SOTELO ([phone])[facility])[address] [place] [address] Neutrophils/100 WBC (Bld) 90.3 % High 38.0-82.0 [facility] Comment on above: Performed By: #### L [id number] ####Typesetter Apprentice: MARY SOTELO ([phone])[facility] ([facility])[address] [place] [address] NRBC 0.0 /100 WBCs Normal 0.0-2.0 [facility] Comment on above: Performed By: #### L [id number] ####Typesetter Apprentice: MARY SOTELO ([phone])[facility] ([facility])[address] [place] [address] Platelet mean volume (Bld) [Entitic vol] 10.7 fL Normal 9.0-12.7 [facility] Comment on above: Performed By: #### L [id number] ####Typesetter Apprentice: MARY SOTELO ([phone])[facility] ([facility])[address] [place] [address] Platelets (Bld) [#/Vol] 146 10*3/uL Normal 140-440 [facility] Comment on above: Performed By: #### L [id number] ####Typesetter Apprentice: MARY SOTELO ([phone])[facility] ([facility])[address] [place] [address] RBC (Bld) [#/Vol] 2.40 10*6/uL Low 3.80-5.20 [facility] Comment on above: Performed By: #### L [id number] ####Typesetter Apprentice: MARY SOTELO ([phone])[facility] ([facility])[address] [place] [address] WBC (Bld) [#/Vol] 13.3 10*3/uL High 3.6-10.7 [facility] Comment on above: Performed By: #### L [id number] ####Typesetter Apprentice: MARY SOTELO ([phone])[facility] ([facility])[address] [place] [address] Basophils (Bld) [#/Vol] 0.0 10*3/uL Normal 0.0-0.2 [facility] Comment on above: Performed By: #### L [id number] ####Typesetter Apprentice: MARY SOTELO ([phone])[facility])[address] [place] [address] Basophils/100 WBC (Bld) 0.1 % Normal 0.0-2.0 [facility] Comment on above: Performed By: #### L [id number] ####Typesetter Apprentice: MARY SOTELO ([phone])[facility])[address] [place] [address] Eosinophils (Bld) [#/Vol] 0.0 10*3/uL Normal 0.0-0.5 [facility] Comment on above: Performed By: #### L [id number] ####Typesetter Apprentice: MARY SOTELO ([phone])[facility])[address] [place] [address] Eosinophils/100 WBC (Bld) 0.2 % Normal 0.0-6.0 [facility] Comment on above: Performed By: #### L [id number] ####Typesetter Apprentice: MARY SOTELO ([phone])[facility])[address] [place] [address] Erythrocyte distribution width (RBC) [Ratio] 15.1 % High 11.5-15.0 [facility] Comment on above: Performed By: #### L [id number] ####Typesetter Apprentice: MARY SOTELO ([phone])[facility])[address] [place] [address] Hematocrit (Bld) [Volume fraction] 22.9 % Low 35.0-47.0 [facility] Comment on above: Performed By: #### L [id number] ####Typesetter Apprentice: MARY SOTELO ([phone])[facility])[address] [place] [address] Hemoglobin (Bld) [Mass/Vol] 7.2 g/dL Low 11.7-16.0 [facility] Comment on above: Performed By: #### L [id number] ####Typesetter Apprentice: MARY SOTELO ([phone])[facility])[address] [place] [address] IMMATURE GRANS % 0.4 % Normal 0.0-2.0 [facility] Comment on above: Performed By: #### L [id number] ####Typesetter Apprentice: MARY SOTELO ([phone])[facility])[address] [place] [address] IMMATURE GRANS ABSOLUTE 0.1 10*3/uL High <0.1 [facility] Comment on above: Performed By: #### L [id number] ####Typesetter Apprentice: MARY SOTELO ([phone])[address] Lymphocytes (Bld) [#/Vol] 0.5 10*3/uL Low 1.0-4.3 [facility] Comment on above: Performed By: #### L [id number] ####Typesetter Apprentice: MARY SOTELO ([phone])[facility])[address] [place] [address] Lymphocytes/100 WBC (Bld) 3.6 % Low 15.0-45.0 [facility] Comment on above: Performed By: #### L [id number] ####Typesetter Apprentice: MARY SOTELO ([phone])[facility])[address] [place] [address] MCH (RBC) [Entitic mass] 28.9 pg Normal 26.0-34.0 [facility] Comment on above: Performed By: #### L [id number] ####Typesetter Apprentice: MARY SOTELO ([phone])[address] MCHC 31.4 % Normal 30.5-36.0 [facility] Comment on above: Performed By: #### L [id number] ####Typesetter Apprentice: MARY SOTELO ([phone])[facility])[address] [place] [address] MCV (RBC) [Entitic vol] 92.0 fL Normal 77.0-99.0 [facility] Comment on above: Performed By: #### L [id number] ####Typesetter Apprentice: MARY SOTELO ([phone])[facility])[address] [place] [address] Monocytes (Bld) [#/Vol] 0.3 10*3/uL Normal 0.0-0.9 [facility] Comment on above: Performed By: #### L [id number] ####Typesetter Apprentice: MARY SOTELO ([phone])[facility])[address] [place] [address] Monocytes/100 WBC (Bld) 2.0 % Low 5.0-13.0 [facility] Comment on above: Performed By: #### L [id number] ####Typesetter Apprentice: MARY SOTELO ([phone])[facility] ([facility])[address] [place] [address] NEUTROPHILS ABSOLUTE 13.2 10*3/uL High 1.8-7.5 [facility] Comment on above: Performed By: #### L [id number] ####Typesetter Apprentice: MARY SOTELO ([phone])[facility])[address] [place] [address] Neutrophils/100 WBC (Bld) 93.7 % High 38.0-82.0 [facility] Comment on above: Performed By: #### L [id number] ####Typesetter Apprentice: MARY SOTELO ([phone])[facility])[address] [place] [address] NRBC 0.0 /100 WBCs Normal 0.0-2.0 [facility] Comment on above: Performed By: #### L [id number] ####Typesetter Apprentice: MARY SOTELO ([phone])[facility] ([facility])[address] [place] [address] Platelet mean volume (Bld) [Entitic vol] 10.5 fL Normal 9.0-12.7 [facility] Comment on above: Performed By: #### L [id number] ####Typesetter Apprentice: MARY SOTELO ([phone])[facility] ([facility])[address] [place] [address] Platelets (Bld) [#/Vol] 135 10*3/uL Low 140-440 [facility] Comment on above: Performed By: #### L [id number] ####Typesetter Apprentice: MARY SOTELO ([phone])[facility] ([facility])[address] [place] [address] RBC (Bld) [#/Vol] 2.49 10*6/uL Low 3.80-5.20 [facility] Comment on above: Performed By: #### L [id number] ####Typesetter Apprentice: MARY SOTELO ([phone])[facility] ([facility])[address] [place] [address] WBC (Bld) [#/Vol] 14.0 10*3/uL High 3.6-10.7 [facility] Comment on above: Performed By: #### L [id number] ####Typesetter Apprentice: MARY SOTELO ([phone])[facility] ([facility])[address] [place] [address] CBC panel Auto (Bld)Ordered By: Akbar Warner on 07-31-2024 Erythrocyte distribution width (RBC) [Ratio] 15.2 % High 11.5 - 15.0 % [facility] Hematocrit (Bld) [Volume fraction] 21.6 % Low 35.0 - 47.0 % [facility] Hemoglobin (Bld) [Mass/Vol] 6.8 g/dL Critically low 11.7 - 16.0 g/dL [facility] Interpretation and review of laboratory results Abnormal [facility] MCH (RBC) [Entitic mass] 28.7 pg 26.0 - 34.0 pg [facility] MCHC (RBC) [Mass/Vol] 31.5 % 30.5 - 36.0 % [facility] MCV (RBC) [Entitic vol] 91.1 fL 77.0 - 99.0 fL [facility] Platelet mean volume (Bld) [Entitic vol] 10.9 fL 9.0 - 12.7 fL [facility] Platelets (Bld) [#/Vol] 158 10*3/uL 140 - 440 10*3/uL [facility] RBC (Bld) [#/Vol] 2.37 10*6/uL Low 3.80 - 5.2 0 10*6/uL [facility] WBC (Bld) [#/Vol] 15.0 10*3/uL High 3.6 - 10.7 10*3/uL [facility] Calcium.ionized [Moles/Vol]o n 07-31-2024 Calcium.ionized (Bld) [Moles/Vol] 4.70 mg/dL 4.30 - 5.20 mg/dL [facility] Interpretation and review of laboratory results Normal [facility] PH, IONIZED CALCIUM 7.31 7.31 - 7.46 [facility] Calcium.ionized (Bld) [Moles/Vol] 4.80 mg/dL 4.30 - 5.20 mg/dL [facility] Interpretation and review of laboratory results Normal [facility] PH, IONIZED CALCIUM 7.36 7.31 - 7.46 [facility] Calcium.ionized (Bld) [Moles/Vol] 4.90 mg/dL 4.30 - 5.20 mg/dL [facility] Interpretation and review of laboratory results Normal [facility] PH, IONIZED CALCIUM 7.35 7.31 - 7.46 [facility] Calcium.ionized (Bld) [Moles/Vol] 4.80 mg/dL 4.30 - 5.20 mg/dL [facility] Interpretation and review of laboratory results Normal [facility] PH, IONIZED CALCIUM 7.38 7.31 - 7.46 [facility] HEMOGLOBIN AND HEMATOCRIT, B LOODon 07-31-2024 Hematocrit (Bld) [Volume fraction] 25.4 % Low 35.0-47.0 [facility] Comment on above: Order Comment: Recom mend 1 hour post transfusion Performed By: #### L [id number] ####Typesetter Apprentice: MARY SOTELO ([phone])[address] Hemoglobin (Bld) [Mass/Vol] 8.0 g/dL Low 11.7-16.0 [facility] Comment on above: Order Comment: Recom mend 1 hour post transfusion Performed By: #### L [id number] ####Typesetter Apprentice: MARY SOTELO ([phone])[facility] ([facility])[address] [place] [address] [facility] Hemoglobin (Bld) [Mass/Vol]o n 07-31-2024 Hematocrit (Bld) [Volume fraction] 25.4 % Low 35.0 - 47.0 % [facility] Interpretation and review of laboratory results Abnormal [facility] IDNon 07-31-2024 IDN Normal [facility] Laboratory - Chemistry and C hemistry - challengeon 07-31-2024 Glucose [Mass/Vol] 107 mg/dL High 70 - 100 mg/dL [facility] Glucose [Mass/Vol] 118 mg/dL High 70 - 100 mg/dL [facility] [employer] Glucose [Mass/Vol] 61 mg/dL Low 70 - 100 mg/dL [facility] Glucose [Mass/Vol] 127 mg/dL High 70 - 100 mg/dL [facility] Base excess Calc (Bld) [Moles/Vol] -0.9000 mmol/L -3.0 - 3.0 mmol/L [facility] CO2 (Bld) [Partial pressure] 47.9 mm[Hg] High - PINF [facility] CO2 [Moles/Vol] 26.4 mmol/L 23.0 - 27.0 mmol/L [facility] HCO3 (Bld) [Moles/Vol] 25.0 mmol/L 21.0 - 25.0 mmol/L [facility] Oxygen (Bld) [Partial pressure] 143.8 mm[Hg] High [facility] pH (Bld) 7.335 [pH] Low 7.350 - 7.450 [facility] Glucose [Mass/Vol] 177 mg/dL High 70 - 100 mg/dL [facility] Glucose [Mass/Vol] 237 mg/dL High 70 - 100 mg/dL [facility] Laboratory - Hematology and Cell countson 07-31-2024 Hemoglobin (Bld) [Mass/Vol] 8.0 g/dL Low 11.7 - 16.0 g/dL [facility] Hemoglobin (Bld) [Mass/Vol] 7.1 g/dL Screen only [facility] No Panel Informationon 07-31 Interpretation and review of laboratory results Abnormal [facility] Interpretation and review of laboratory results Abnormal [facility] Interpretation and review of laboratory results Abnormal [facility] Blood Expiration Date [id number] [facility] Crossmatch interpretation COMP [facility] Dispense Status Transfused [facility] Product Blood Type 5100 [facility] PRODUCT CODE [id number] [facility] Unit ABO O [facility] Unit Number [id number] [facility] alth Unit RH Positive [facility] Unit Volume 300 mL [facility] Interpretation and review of laboratory results Abnormal [facility] Interpretation and review of laboratory results Abnormal [facility] Source Of Oxygen Nasal cannula [facility] Interpretation and review of laboratory results Abnormal [facility] Interpretation and review of laboratory results Abnormal [facility] Progress Noteon 07-31-2024 Progress Note Normal [facility] Progress Note Normal [facility] Progress Note Normal [facility] RENAL FUNCTION PANELon 07-31 Albumin [Mass/Vol] 1.9 g/dL Low 3.5-5.0 [facility] Comment on above: Performed By: #### L [id number] ####Typesetter Apprentice: MARY SOTELO ([phone])[facility] ([address] Anion gap [Moles/Vol] 1 mmol/L Low 3-13 [facility] Comment on above: Performed By: #### L [id number] ####Typesetter Apprentice: MARY SOTELO ([phone])[facility] ([facility])[address] [place] [address] Calcium [Mass/Vol] 8.2 mg/dL Low 8.4-10.4 [facility] Comment on above: Performed By: #### L [id number] ####Typesetter Apprentice: MARY [phone])[facility])[address] [place], [place] [id number] [place] Chloride [Moles/Vol] 104 mmol/L Normal 98-107 [facility] Comment on above: Performed By: #### L [id number] ####Typesetter Apprentice: MARY SOTELO ([phone])[facility] ([facility])[address] [place] [address] CO2 [Moles/Vol] 25 mmol/L Normal 22-30 [facility] Comment on above: Performed By: #### L AB19 ####Typesetter Apprentice: MARY SOTELO ([phone])[facility] ([facility])[address] [place] [address] Creatinine [Mass/Vol] 0.81 mg/dL Normal 0.52-1.04 [facility] Comment on above: Performed By: #### L AB19 ####Typesetter Apprentice: MARY SOTELO ([phone])[facility] ([facility])[address] [place] [address] [place] GLOMERULAR FILTRATION RATE ML/MIN/1.73 SQ M.PREDICTED 81.2 mL/min/1.73m*2 Normal >60.0 [facility] Comment on above: Result Comment: Calc ulation based on the Chronic Kidney Disease Epidemiology Collaboration (CKD-EPI) equation refit without adjustment for race Performed By: #### L AB19 ####Typesetter Apprentice: MARY SOTELO ([phone])[facility] ([facility])[address] [place] [address] [place] Glucose [Mass/Vol] 173 mg/dL High 70-100 [facility] Comment on above: Performed By: #### L AB19 ####Typesetter Apprentice: MARY SOTELO ([phone])[facility] ([facility])[address] [place] [address] [place] Phosphate [Mass/Vol] 3.1 mg/dL Normal 2.5-4.5 [facility] Comment on above: Performed By: #### L [id number] ####Typesetter Apprentice: MARY SOTELO ([phone])[facility] ([facility])[address] [place] [address] [place] Potassium [Moles/Vol] 3.9 mmol/L Normal 3.5-5.1 [facility] Comment on above: Performed By: #### L [id number] ####Typesetter Apprentice: MARY SOTELO ([phone])[facility] ([facility])[address] [place] [address] Sodium [Moles/Vol] 130 mmol/L Low 135-145 [facility] Comment on above: Performed By: #### L [id number] ####Typesetter Apprentice: MARY SOTELO ([phone])[facility] ([facility])[address] [place] [address] Urea nitrogen [Mass/Vol] 16 mg/dL Normal 7-17 [facility] Comment on above: Performed By: #### L [id number] ####Typesetter Apprentice: MARY SOTELO ([phone])[facility] ([facility])[address] [place] [address] Albumin [Mass/Vol] 1.9 g/dL Low 3.5-5.0 [facility] Comment on above: Performed By: #### L [id number] ####Typesetter Apprentice: MARY SOTELO ([phone])[facility] ([facility])[address] [place] [address] Anion gap [Moles/Vol] 2 mmol/L Low 3-13 [facility] Comment on above: Performed By: #### L [id number] ####Typesetter Apprentice: MARY SOTELO ([phone])[facility] ([facility])[address] [place] [address] Calcium [Mass/Vol] 8.7 mg/dL Normal 8.4-10.4 [facility] Comment on above: Performed By: #### L [id number] ####Typesetter Apprentice: MARY SOTELO ([phone])[facility] ([facility])[address] [place] [address] Chloride [Moles/Vol] 105 mmol/L Normal 98-107 [facility] Comment on above: Performed By: #### L [id number] ####Typesetter Apprentice: MARY SOTELO ([phone])[facility] ([facility])[address] [place] [address] CO2 [Moles/Vol] 25 mmol/L Normal 22-30 [facility] Comment on above: Performed By: #### L [id number] ####Typesetter Apprentice: MARY SOTELO ([phone])[facility] ([facility])[address] [place] [address] Creatinine [Mass/Vol] 0.89 mg/dL Normal 0.52-1.04 [facility] Comment on above: Performed By: #### L [id number] ####Typesetter Apprentice: MARY SOTELO ([phone])[facility] ([facility])[address] [place] [address] GLOMERULAR FILTRATION RATE ML/MIN/1.73 SQ M.PREDICTED 72.5 mL/min/1.73m*2 Normal >60.0 [facility] Comment on above: Result Comment: Calc ulation based on the Chronic Kidney Disease Epidemiology Collaboration (CKD-EPI) equation refit without adjustment for race Performed By: #### L [id number] ####Typesetter Apprentice: MARY SOTELO ([phone])[facility] ([facility])[address] [place] [address] Glucose [Mass/Vol] 104 mg/dL High 70-100 [facility] Comment on above: Performed By: #### L [id number] ####Typesetter Apprentice: MARY SOTELO ([phone])[facility] ([facility])[address] [place] [address] [place] Phosphate [Mass/Vol] 3.2 mg/dL Normal 2.5-4.5 [facility] Comment on above: Performed By: #### L [id number] ####Typesetter Apprentice: MARY SOTELO ([phone])[facility] ([facility])[address] [place] [address] [place] Potassium [Moles/Vol] 3.7 mmol/L Normal 3.5-5.1 [facility] Comment on above: Performed By: #### L [id number] ####Typesetter Apprentice: MARY SOTELO ([phone])[facility] ([facility])[address] [place] [address] Sodium [Moles/Vol] 132 mmol/L Low 135-145 [facility] Comment on above: Performed By: #### L [id number] ####Typesetter Apprentice: MARY SOTELO ([phone])[facility] ([facility])[address] [place] [address] Urea nitrogen [Mass/Vol] 19 mg/dL High 7-17 [facility] Comment on above: Performed By: #### L [id number] ####Typesetter Apprentice: MARY SOTELO ([phone])[facility] ([facility])[address] [place] [address] Albumin [Mass/Vol] 2.1 g/dL Low 3.5-5.0 [facility] Comment on above: Performed By: #### L [id number] ####Typesetter Apprentice: MARY SOTELO ([phone])[facility] ([facility])[address] [place] [address] Anion gap [Moles/Vol] 3 mmol/L Normal 3-13 [facility] Comment on above: Performed By: #### L [id number] ####Typesetter Apprentice: MARY SOTELO ([phone])[facility] ([facility])[address] [place] [address] Calcium [Mass/Vol] 8.7 mg/dL Normal 8.4-10.4 [facility] Comment on above: Performed By: #### L [id number] ####Typesetter Apprentice: MARY SOTELO ([phone])[facility] ([facility])[address] [place] [address] Chloride [Moles/Vol] 105 mmol/L Normal 98-107 [facility] Comment on above: Performed By: #### L [id number] ####Typesetter Apprentice: MARY SOTELO ([phone])[facility] ([facility])[address] [place] [address] CO2 [Moles/Vol] 24 mmol/L Normal 22-30 [facility] Comment on above: Performed By: #### L [id number] ####Typesetter Apprentice: MARY SOTELO ([phone])[facility] [place] [address] Creatinine [Mass/Vol] 0.91 mg/dL Normal 0.52-1.04 [facility] Comment on above: Performed By: #### L [id number] ####Typesetter Apprentice: MARY SOTELO ([phone])[facility] [place] [address] [place] GLOMERULAR FILTRATION RATE ML/MIN/1.73 SQ M.PREDICTED 70.6 mL/min/1.73m*2 Normal >60.0 [facility] Comment on above: Result Comment: Calc ulation based on the Chronic Kidney Disease Epidemiology Collaboration (CKD-EPI) equation refit without adjustment for race Performed By: #### L [id number] ####Typesetter Apprentice: MARY SOTELO ([phone])[facility] ([facility])[address] [place] [address] Glucose [Mass/Vol] 161 mg/dL High 70-100 [facility] Comment on above: Performed By: #### L [id number] ####Typesetter Apprentice: MARY SOTELO ([phone])[facility] ([facility])[address] [place] [address] [place] Phosphate [Mass/Vol] 3.8 mg/dL Normal 2.5-4.5 [facility] Comment on above: Performed By: #### L [id number] ####Typesetter Apprentice: MARY SOTELO ([phone])[facility] [place] [address] [place] Potassium [Moles/Vol] 4.2 mmol/L Normal 3.5-5.1 [facility] Comment on above: Performed By: #### L [id number] ####Typesetter Apprentice: MARY SOTELO ([phone])[facility] ([facility])[address] [place] [address] Sodium [Moles/Vol] 131 mmol/L Low 135-145 [facility] Comment on above: Performed By: #### L [id number] ####Typesetter Apprentice: MARY SOTELO ([phone])[facility])[address] Urea nitrogen [Mass/Vol] 22 mg/dL High 7-17 [facility] Comment on above: Performed By: #### L [id number] ####Typesetter Apprentice: MARY SOTELO ([phone])[facility] [place] [address] Albumin [Mass/Vol] 2.2 g/dL Low 3.5-5.0 [facility] Comment on above: Performed By: #### L [id number] ####Typesetter Apprentice: MARY SOTELO ([phone])[facility] [place] [address] Anion gap [Moles/Vol] 3 mmol/L Normal 3-13 [facility] Comment on above: Performed By: #### L [id number] ####Typesetter Apprentice: MARY SOTELO ([phone])[facility] ([facility])[address] [place] [address] Calcium [Mass/Vol] 8.7 mg/dL Normal 8.4-10.4 [facility] Comment on above: Performed By: #### L [id number] ####Typesetter Apprentice: MARY SOTELO ([phone])[facility] ([facility])[address] [place] [address] Chloride [Moles/Vol] 105 mmol/L Normal 98-107 [facility] Comment on above: Performed By: #### L [id number] ####Typesetter Apprentice: MARY SOTELO ([phone])[facility] ([facility])[address] [place] [address] [place] CO2 [Moles/Vol] 24 mmol/L Normal 22-30 [facility] Comment on above: Performed By: #### L [id number] ####Typesetter Apprentice: MARY SOTELO ([phone])[facility] ([facility])[address] [place] [address] Creatinine [Mass/Vol] 0.98 mg/dL Normal 0.52-1.04 [facility] Comment on above: Performed By: #### L [id number] ####Typesetter Apprentice: MARY SOTELO ([phone])[facility] ([facility])[address] [place] [address] [place] GLOMERULAR FILTRATION RATE ML/MIN/1.73 SQ M.PREDICTED 64.6 mL/min/1.73m*2 Normal >60.0 [facility] Comment on above: Result Comment: Calc ulation based on the Chronic Kidney Disease Epidemiology Collaboration (CKD-EPI) equation refit without adjustment for race Performed By: #### L [id number] ####Typesetter Apprentice: MARY SOTELO ([phone])[facility] ([facility])[address] [place] [address] Glucose [Mass/Vol] 229 mg/dL High 70-100 [facility] Comment on above: Performed By: #### L [id number] ####Typesetter Apprentice: MARY SOTELO ([phone])[facility] ([facility])[address] [place] [address] Phosphate [Mass/Vol] 4.0 mg/dL Normal 2.5-4.5 [facility] Comment on above: Performed By: #### L [id number] ####Typesetter Apprentice: MARY SOTELO ([phone])[facility] ([facility])[address] [place] [address] [place] Potassium [Moles/Vol] 4.5 mmol/L Normal 3.5-5.1 [facility] Comment on above: Performed By: #### L [id number] ####Typesetter Apprentice: MARY SOTELO ([phone])[facility])[address] [place] [address] [place] Sodium [Moles/Vol] 132 mmol/L Low 135-145 [facility] Comment on above: Performed By: #### L [id number] ####Typesetter Apprentice: MARY SOTELO ([phone])[facility])[address] [place] [address] [place] Urea nitrogen [Mass/Vol] 24 mg/dL High 7-17 [facility] Comment on above: Performed By: #### L [id number] ####Typesetter Apprentice: MARY SOTELO ([phone])[facility] ([facility])[address] [place] [address] Renal function 2000 panelon 07-31-2024 Albumin [Mass/Vol] 1.9 g/dL Low 3.5 - 5.0 g/dL [facility] Anion gap [Moles/Vol] 1 mmol/L Low 3 - 13 mmol/L [facility] Calcium [Mass/Vol] 8.2 mg/dL Low 8.4 - 10. 4 mg/dL [facility] Chloride [Moles/Vol] 104 mmol/L 98 - 10 7 mmol/L [facility] CO2 [Moles/Vol] 25 mmol/L 22 - 30 mmol/L [facility] Creatinine [Mass/Vol] 0.81 mg/dL 0.52 - 1.04 mg/dL [facility] GFR/1.73 sq M.predicted (S/P/Bld) [Vol rate/Area] 81.2 mL/min - PINF [facility] Glucose [Mass/Vol] 173 mg/dL High 70 - 100 mg/dL [facility] Interpretation and review of laboratory results Abnormal [facility] Phosphate [Mass/Vol] 3.1 mg/dL 2.5 - 4 .5 mg/dL [facility] Potassium [Moles/Vol] 3.9 mmol/L 3.5 - 5.1 mmol/L [facility] Sodium [Moles/Vol] 130 mmol/L Low 135 - 145 mmol/L [facility] Urea nitrogen [Mass/Vol] 16 mg/dL 7 - 17 mg/dL [facility] Albumin [Mass/Vol] 1.9 g/dL Low 3.5 - 5.0 g/dL [facility] Anion gap [Moles/Vol] 2 mmol/L Low 3 - 13 mmol/L [facility] Calcium [Mass/Vol] 8.7 mg/dL 8.4 - 10. 4 mg/dL [facility] Chloride [Moles/Vol] 105 mmol/L 98 - 10 7 mmol/L [facility] CO2 [Moles/Vol] 25 mmol/L 22 - 30 mmol/L [facility] Creatinine [Mass/Vol] 0.89 mg/dL 0.52 - 1.04 mg/dL [facility] GFR/1.73 sq M.predicted (S/P/Bld) [Vol rate/Area] 72.5 mL/min - PINF [facility] Glucose [Mass/Vol] 104 mg/dL High 70 - 100 mg/dL [facility] Interpretation and review of laboratory results Abnormal [facility] Phosphate [Mass/Vol] 3.2 mg/dL 2.5 - 4 .5 mg/dL [facility] Potassium [Moles/Vol] 3.7 mmol/L 3.5 - 5.1 mmol/L [facility] Sodium [Moles/Vol] 132 mmol/L Low 135 - 145 mmol/L [facility] Urea nitrogen [Mass/Vol] 19 mg/dL High 7 - 17 mg/dL [facility] Albumin [Mass/Vol] 2.1 g/dL Low 3.5 - 5.0 g/dL [facility] Anion gap [Moles/Vol] 3 mmol/L 3 - 13 mmol/L [facility] Calcium [Mass/Vol] 8.7 mg/dL 8.4 - 10. 4 mg/dL [facility] Chloride [Moles/Vol] 105 mmol/L 98 - 10 7 mmol/L [facility] CO2 [Moles/Vol] 24 mmol/L 22 - 30 mmol/L [facility] Creatinine [Mass/Vol] 0.91 mg/dL 0.52 - 1.04 mg/dL [facility] GFR/1.73 sq M.predicted (S/P/Bld) [Vol rate/Area] 70.6 mL/min - PINF [facility] Glucose [Mass/Vol] 161 mg/dL High 70 - 100 mg/dL [facility] Interpretation and review of laboratory results Abnormal [facility] Phosphate [Mass/Vol] 3.8 mg/dL 2.5 - 4 .5 mg/dL [facility] Potassium [Moles/Vol] 4.2 mmol/L 3.5 - 5.1 mmol/L [facility] Sodium [Moles/Vol] 131 mmol/L Low 135 - 145 mmol/L [facility] Urea nitrogen [Mass/Vol] 22 mg/dL High 7 - 17 mg/dL [facility] Albumin [Mass/Vol] 2.2 g/dL Low 3.5 - 5.0 g/dL [facility] Anion gap [Moles/Vol] 3 mmol/L 3 - 13 mmol/L [facility] Calcium [Mass/Vol] 8.7 mg/dL 8.4 - 10. 4 mg/dL [facility] Chloride [Moles/Vol] 105 mmol/L 98 - 10 7 mmol/L [facility] CO2 [Moles/Vol] 24 mmol/L 22 - 30 mmol/L [facility] Creatinine [Mass/Vol] 0.98 mg/dL 0.52 - 1.04 mg/dL [facility] GFR/1.73 sq M.predicted (S/P/Bld) [Vol rate/Area] 64.6 mL/min - PINF [facility] Glucose [Mass/Vol] 229 mg/dL High 70 - 100 mg/dL [facility] Interpretation and review of laboratory results Abnormal [facility] Phosphate [Mass/Vol] 4.0 mg/dL 2.5 - 4 .5 mg/dL [facility] Potassium [Moles/Vol] 4.5 mmol/L 3.5 - 5.1 mmol/L [facility] Sodium [Moles/Vol] 132 mmol/L Low 135 - 145 mmol/L [facility] Urea nitrogen [Mass/Vol] 24 mg/dL High 7 - 17 mg/dL [facility] BLOOD GAS ARTERIALon 024 Base excess Calc (Bld) [Moles/Vol] 1.9 mmol/L Normal -3.0-3.0 [facility] Comment on above: Performed By: #### L [id number] ####Typesetter Apprentice: MARY SOTELO ([phone])[facility])[address] [place] [address] CO2 [Moles/Vol] 28.3 mmol/L High 23.0-27.0 [facility] Comment on above: Performed By: #### L [id number] ####Typesetter Apprentice: MARY SOTELO ([phone])[facility] ([facility])[address] [place] [address] [place] HCO3 (Bld) [Moles/Vol] 26.9 mmol/L High 21.0-25.0 [facility] Comment on above: Performed By: #### L [id number] ####Typesetter Apprentice: MARY SOTELO ([phone])[facility] ([facility])[address] [place] [address] [place] Hemoglobin (Bld) [Mass/Vol] 7.7 g/dL Normal Screen only [facility] Comment on above: Performed By: #### L [id number] ####Typesetter Apprentice: MARY SOTELO ([phone])[facility] ([facility])[address] [place] [address] OXYGEN SATURATION (%) IN ARTERIAL BLOOD 97.9 % Normal 95.0-100.0 [facility] Comment on above: Performed By: #### L [id number] ####Typesetter Apprentice: MARY SOTELO ([phone])[facility] ([facility])[address] [place] [address] PCO2 ARTERIAL 44.6 mm Hg Normal >35.0-<45.0 [facility] Comment on above: Performed By: #### L [id number] ####Typesetter Apprentice: MARY SOTELO ([phone])[facility] ([facility])[address] [place] [address] PH ARTERIAL 7.399 Normal 7.350-7.450 [facility] Comment on above: Performed By: #### L [id number] ####Typesetter Apprentice: MARY SOTELO ([phone])[facility] ([facility])[address] [place] [address] PO2 ARTERIAL 113.8 mm Hg High 80.0-100.0 [facility] Comment on above: Performed By: #### L [id number] ####Typesetter Apprentice: MARY SOTELO ([phone])[facility] ([facility])[address] [place] [address] SOURCE OF OXYGEN 30% Oxygen Normal [facility] Comment on above: Result Comment: lon llator Performed By: #### L [id number] ####Typesetter Apprentice: MARY SOTELO ([phone])[facility] ([facility])[address] [place] [address] Base excess Calc (Bld) [Moles/Vol] 0.7 mmol/L Normal -3.0-3.0 [facility] Comment on above: Performed By: #### L [id number] ####Typesetter Apprentice: MARY SOTELO ([phone])[facility] [place] [address] CO2 [Moles/Vol] 27.6 mmol/L High 23.0-27.0 [facility] Comment on above: Performed By: #### L [id number] ####Typesetter Apprentice: MARY SOTELO ([phone])[facility] [place] [address] HCO3 (Bld) [Moles/Vol] 26.2 mmol/L High 21.0-25.0 [facility] Comment on above: Performed By: #### L [id number] ####Typesetter Apprentice: MARY SOTELO ([phone])[facility] ([facility])[address] [place] [address] Hemoglobin (Bld) [Mass/Vol] 7.9 g/dL Normal Screen only [facility] Comment on above: Performed By: #### L [id number] ####Typesetter Apprentice: MARY SOTELO ([phone])[facility] ([facility])[address] [place] [address] OXYGEN SATURATION (%) IN ARTERIAL BLOOD 97.2 % Normal 95.0-100.0 [facility] Comment on above: Performed By: #### L [id number] ####Typesetter Apprentice: MARY SOTELO ([phone])[facility] [place] [address] PCO2 ARTERIAL 46.3 mm Hg High >35.0-<45.0 [facility] Comment on above: Performed By: #### L [id number] ####Typesetter Apprentice: MARY SOTELO ([phone])[facility] ([facility])[address] [place] [address] PH ARTERIAL 7.370 Normal 7.350-7.450 [facility] Comment on above: Performed By: #### L [id number] ####Typesetter Apprentice: MARY SOTELO ([phone])[facility] [place] [address] PO2 ARTERIAL 114.1 mm Hg High 80.0-100.0 [facility] Comment on above: Performed By: #### L [id number] ####Typesetter Apprentice: MARY SOTELO ([phone])[facility])[address] [place] [address] SOURCE OF OXYGEN Vent Normal [facility] Comment on above: Performed By: #### L [id number] ####Typesetter Apprentice: MARY SOTELO ([phone])[facility])[address] [place] [address] [place] CALCIUM, IONIZEDon 4 CALCIUM IONIZED 4.90 mg/dL Normal 4.30-5.20 [facility] Comment on above: Performed By: #### L AB54 ####Typesetter Apprentice: MARY SOTELO ([phone])[facility])[address] [place] [address] PH, IONIZED CALCIUM 7.34 Normal 7.31-7.46 [facility] Comment on above: Performed By: #### L AB54 ####Typesetter Apprentice: MARY SOTELO ([phone])[facility] ([facility])[address] [place] [address] CALCIUM IONIZED 4.20 mg/dL Low 4.30-5.20 [facility] Comment on above: Performed By: #### L AB54 ####Typesetter Apprentice: MARY SOTELO ([phone])[facility])[address] [place] [address] PH, IONIZED CALCIUM 7.43 Normal 7.31-7.46 [facility] Comment on above: Performed By: #### L AB54 ####Typesetter Apprentice: MARY SOTELO ([phone])[facility])[address] [place] [address] [place] CALCIUM IONIZED 4.10 mg/dL Low 4.30-5.20 [facility] Comment on above: Performed By: #### L AB54 ####Typesetter Apprentice: MARY SOTELO ([phone])[facility])[address] [place] [address] [place] PH, IONIZED CALCIUM 7.42 Normal 7.31-7.46 [facility] Comment on above: Performed By: #### L AB54 ####Typesetter Apprentice: MARY SOTELO ([phone])[facility])[address] [place] [address] CALCIUM IONIZED 4.30 mg/dL Normal 4.30-5.20 [facility] Comment on above: Performed By: #### L AB54 ####Typesetter Apprentice: MARY SOTELO ([phone])[facility])[address] [place] [address] PH, IONIZED CALCIUM 7.37 Normal 7.31-7.46 [facility] Comment on above: Performed By: #### L AB54 ####Typesetter Apprentice: MARY SOTELO ([phone])[facility])[address] [place] [address] CARECOORDon 07-30-2024 CARECOORD Normal [facility] CBC WITH AUTO DIFFERENTIALon 07-30-2024 Basophils (Bld) [#/Vol] 0.0 10*3/uL Normal 0.0-0.2 [facility] Comment on above: Performed By: #### L [id number] ####Typesetter Apprentice: MARY SOTELO ([phone])[facility] ([facility])[address] [place] [address] Basophils/100 WBC (Bld) 0.0 % Normal 0.0-2.0 [facility] Comment on above: Performed By: #### L [id number] ####Typesetter Apprentice: MARY SOTELO ([phone])[facility] ([facility])[address] [place] [address] Eosinophils (Bld) [#/Vol] 0.0 10*3/uL Normal 0.0-0.5 [facility] Comment on above: Performed By: #### L [id number] ####Typesetter Apprentice: MRAY SOTELO ([phone])[facility])[address] [place] [address] [place] Eosinophils/100 WBC (Bld) 0.0 % Normal 0.0-6.0 [facility] Comment on above: Performed By: #### L [id number] ####Typesetter Apprentice: MARY SOTELO ([phone])[facility])[address] [place] [address] Erythrocyte distribution width (RBC) [Ratio] 15.5 % High 11.5-15.0 [facility] Comment on above: Performed By: #### L [id number] ####Typesetter Apprentice: MARY SOTELO ([phone])[facility])[address] [place] [address] Hematocrit (Bld) [Volume fraction] 23.0 % Low 35.0-47.0 [facility] Comment on above: Performed By: #### L [id number] ####Typesetter Apprentice: MARY SOTELO ([phone])[address] Hemoglobin (Bld) [Mass/Vol] 7.3 g/dL Low 11.7-16.0 [facility] Comment on above: Performed By: #### L [id number] ####Typesetter Apprentice: MARY SOTELO ([phone])[address] IMMATURE GRANS % 0.4 % Normal 0.0-2.0 [facility] Comment on above: Performed By: #### L [id number] ####Typesetter Apprentice: MARY SOTELO ([phone])[address] IMMATURE GRANS ABSOLUTE 0.1 10*3/uL High <0.1 [facility] Comment on above: Performed By: #### L [id number] ####Typesetter Apprentice: MARY SOTELO ([phone])[facility])[address] [place] [address] Lymphocytes (Bld) [#/Vol] 0.6 10*3/uL Low 1.0-4.3 [facility] Comment on above: Performed By: #### L [id number] ####Typesetter Apprentice: MARY SOTELO ([phone])[facility])[address] [place] [address] Lymphocytes/100 WBC (Bld) 4.3 % Low 15.0-45.0 [facility] [facility] Comment on above: Performed By: #### L [id number] ####Typesetter Apprentice: MARY SOTELO ([phone])[facility])[address] [place] [address] MCH (RBC) [Entitic mass] 28.6 pg Normal 26.0-34.0 [facility] Comment on above: Performed By: #### L [id number] ####Typesetter Apprentice: MARY SOTELO ([phone])[facility])[address] [place] [address] MCHC 31.7 % Normal 30.5-36.0 [facility] Comment on above: Performed By: #### L [id number] ####Typesetter Apprentice: MARY SOTELO ([phone])[facility] ([facility])[address] [place] [address] MCV (RBC) [Entitic vol] 90.2 fL Normal 77.0-99.0 [facility] Comment on above: Performed By: #### L [id number] ####Typesetter Apprentice: MARY SOTELO ([phone])[facility])[address] [place] [address] Monocytes (Bld) [#/Vol] 0.6 10*3/uL Normal 0.0-0.9 [facility] Comment on above: Performed By: #### L [id number] ####Typesetter Apprentice: MARY SOTELO ([phone])[facility])[address] [place] [address] Monocytes/100 WBC (Bld) 4.4 % Low 5.0-13.0 [facility] Comment on above: Performed By: #### L [id number] ####Typesetter Apprentice: MARY SOTELO ([phone])[facility] [place] [address] NEUTROPHILS ABSOLUTE 12.3 10*3/uL High 1.8-7.5 [facility] Comment on above: Performed By: #### L [id number] ####Typesetter Apprentice: MARY SOTELO ([phone])[facility] ([facility])[address] [place] [address] Neutrophils/100 WBC (Bld) 90.9 % High 38.0-82.0 [facility] Comment on above: Performed By: #### L [id number] ####Typesetter Apprentice: MARY SOTELO ([phone])[facility] ([facility])[address] [place] [address] NRBC 0.0 /100 WBCs Normal 0.0-2.0 [facility] Comment on above: Performed By: #### L [id number] ####Typesetter Apprentice: MARY SOTELO ([phone])[facility] ([facility])[address] [place] [address] Platelet mean volume (Bld) [Entitic vol] 10.5 fL Normal 9.0-12.7 [facility] Comment on above: Performed By: #### L [id number] ####Typesetter Apprentice: MARY SOTELO ([phone])[facility] ([facility])[address] [place] [address] Platelets (Bld) [#/Vol] 161 10*3/uL Normal 140-440 [facility] Comment on above: Performed By: #### L [id number] ####Typesetter Apprentice: MARY SOTELO ([phone])[facility] ([facility])[address] [place] [address] RBC (Bld) [#/Vol] 2.55 10*6/uL Low 3.80-5.20 [facility] Comment on above: Performed By: #### L [id number] ####Typesetter Apprentice: MARY SOTELO ([phone])[facility] ([facility])[address] [place] [address] [place] WBC (Bld) [#/Vol] 13.6 10*3/uL High 3.6-10.7 [facility] Comment on above: Performed By: #### L [id number] ####Typesetter Apprentice: MARY SOTELO ([phone])[facility] [place] [address] IDNon 07-30-2024 IDN Normal [facility] Laboratory - Chemistry and C hemistry - challengeon 07-30-2024 Glucose [Mass/Vol] 165 mg/dL High 70 - 100 mg/dL [facility] No Panel Informationon 07-30 Interpretation and review of laboratory results Abnormal [facility] Nursing Noteon 07-30-2024 Nursing Note Patient pulled out O G tube. Also pulled out ET tube a couple centimeters. . Respiratory therapist advanced ET tube. OG tube place to 55cm. Will get Xray. Restarted Fentanyl. Precedex maxed. Normal [facility] Nursing Note Patient got ahold of suction tubing on ET tube. Pulled her ET tube out a couple centimeters. Respiratory therapist notified. Normal [facility] Progress Noteon 07-30-2024 Progress Note Normal [facility] Progress Note Normal [facility] Progress Note Normal [facility] Progress Note Normal [facility] Progress Note PHYSICAL THERAPY [facility] Name/MRN: Sandy Deng ([id number]) Date: 07/30/2024 Screen Note. Pt remains intubated and sedated with orders for strict bed rest. Will continue to follow and re-attempt as able. Jennifer Saldaña, SPT Normal [facility] Progress Note Normal [facility] RENAL FUNCTION PANELon 07-30 Albumin [Mass/Vol] 2.0 g/dL Low 3.5-5.0 [facility] Comment on above: Performed By: #### L [id number] ####Typesetter Apprentice: MARY SOTELO ([phone])[facility] ([facility])[address] [place] [address] Anion gap [Moles/Vol] 0 mmol/L Low 3-13 [facility] Comment on above: Performed By: #### L [id number] ####Typesetter Apprentice: MARY SOTELO ([phone])[facility] ([facility])[address] [place] [address] Calcium [Mass/Vol] 8.7 mg/dL Normal 8.4-10.4 [facility] Comment on above: Performed By: #### L [id number] ####Typesetter Apprentice: MARY SOTELO ([phone])[facility] ([facility])[address] [place] [address] [place] Chloride [Moles/Vol] 104 mmol/L Normal 98-107 [facility] Comment on above: Performed By: #### L [id number] ####Typesetter Apprentice: MARY SOTELO ([phone])[facility] ([facility])[address] [place] [address] CO2 [Moles/Vol] 28 mmol/L Normal 22-30 [facility] Comment on above: Performed By: #### L [id number] ####Typesetter Apprentice: MARY SOTELO ([phone])[facility] ([facility])[address] [place] [address] Creatinine [Mass/Vol] 0.98 mg/dL Normal 0.52-1.04 [facility] Comment on above: Performed By: #### L [id number] ####Typesetter Apprentice: MARY SOTELO ([phone])[facility] ([facility])[address] [place] [address] [place] GLOMERULAR FILTRATION RATE ML/MIN/1.73 SQ M.PREDICTED 64.6 mL/min/1.73m*2 Normal >60.0 [facility] Comment on above: Result Comment: Calc ulation based on the Chronic Kidney Disease Epidemiology Collaboration (CKD-EPI) equation refit without adjustment for race Performed By: #### L [id number] ####Typesetter Apprentice: MARY SOTELO ([phone])[facility] ([facility])[address] [place] [address] [place] Glucose [Mass/Vol] 114 mg/dL High 70-100 [facility] Comment on above: Performed By: #### L [id number] ####Typesetter Apprentice: MARY SOTELO ([phone])[facility])[address] Phosphate [Mass/Vol] 3.7 mg/dL Normal 2.5-4.5 [facility] Comment on above: Performed By: #### L [id number] ####Typesetter Apprentice: MARY SOTELO ([phone])[facility])[address] Potassium [Moles/Vol] 4.5 mmol/L Normal 3.5-5.1 [facility] Comment on above: Performed By: #### L [id number] ####Typesetter Apprentice: MARY SOTELO ([phone])[facility] ([facility])[address] [place] [address] Sodium [Moles/Vol] 132 mmol/L Low 135-145 [facility] Comment on above: Performed By: #### L [id number] ####Typesetter Apprentice: MARY SOTELO ([phone])[facility])[address] [place] [address] Urea nitrogen [Mass/Vol] 24 mg/dL High 7-17 [facility] Comment on above: Performed By: #### L [id number] ####Typesetter Apprentice: MARY SOTELO ([phone])[facility])[address] [place] [address] Albumin [Mass/Vol] 2.0 g/dL Low 3.5-5.0 [facility] Comment on above: Performed By: #### L [id number] ####Typesetter Apprentice: MARY SOTELO ([phone])[facility])[address] [place] [address] [place] Anion gap [Moles/Vol] 1 mmol/L Low 3-13 [facility] Comment on above: Performed By: #### L [id number] ####Typesetter Apprentice: MARY SOTELO ([phone])[facility])[address] [place] [address] [place] Calcium [Mass/Vol] 7.7 mg/dL Low 8.4-10.4 [facility] Comment on above: Performed By: #### L [id number] ####Typesetter Apprentice: MARY SOTELO ([phone])[facility] ([facility])[address] [place] [address] Chloride [Moles/Vol] 104 mmol/L Normal 98-107 [facility] Comment on above: Performed By: #### L [id number] ####Typesetter Apprentice: MARY SOTELO ([phone])[facility] ([facility])[address] [place] [address] CO2 [Moles/Vol] 28 mmol/L Normal 22-30 [facility] Comment on above: Performed By: #### L [id number] ####Typesetter Apprentice: MARY SOTELO ([phone])[facility] ([facility])[address] [place] [address] Creatinine [Mass/Vol] 1.19 mg/dL High 0.52-1.04 [facility] Comment on above: Performed By: #### L [id number] ####Typesetter Apprentice: MARY SOTELO ([phone])[facility] ([facility])[address] [place] [address] GLOMERULAR FILTRATION RATE ML/MIN/1.73 SQ M.PREDICTED 51.2 mL/min/1.73m*2 Low >60.0 [facility] Comment on above: Result Comment: Calc ulation based on the Chronic Kidney Disease Epidemiology Collaboration (CKD-EPI) equation refit without adjustment for race Performed By: #### L [id number] ####Typesetter Apprentice: MARY SOTELO ([phone])[facility] ([facility])[address] [place] [address] [place] Glucose [Mass/Vol] 89 mg/dL Normal 70-100 [facility] Comment on above: Performed By: #### L [id number] ####Typesetter Apprentice: MARY SOTELO ([phone])[facility] ([facility])[address] [place] [address] Phosphate [Mass/Vol] 3.6 mg/dL Normal 2.5-4.5 [facility] Comment on above: Performed By: #### L [id number] ####Typesetter Apprentice: MARY SOTELO ([phone])[facility] ([facility])[address] [place] [address] Potassium [Moles/Vol] 5.0 mmol/L Normal 3.5-5.1 [facility] Comment on above: Performed By: #### L [id number] ####Typesetter Apprentice: MARY SOTELO ([phone])[facility] ([facility])[address] [place] [address] Sodium [Moles/Vol] 133 mmol/L Low 135-145 [facility] Comment on above: Performed By: #### L [id number] ####Typesetter Apprentice: MARY SOTELO ([phone])[facility] ([facility])[address] [place] [address] Urea nitrogen [Mass/Vol] 28 mg/dL High 7-17 [facility] Comment on above: Performed By: #### L [id number] ####Typesetter Apprentice: MARY SOTELO ([phone])[facility] ([facility])[address] [place] [address] Albumin [Mass/Vol] 2.1 g/dL Low 3.5-5.0 [facility] Comment on above: Performed By: #### L [id number] ####Typesetter Apprentice: MARY SOTELO ([phone])[facility] ([facility])[address] [place] [address] [place] Anion gap [Moles/Vol] 1 mmol/L Low 3-13 [facility] Comment on above: Performed By: #### L [id number] ####Typesetter Apprentice: MARY SOTELO ([phone])[facility] ([facility])[address] [place] [address] [place] Calcium [Mass/Vol] 7.3 mg/dL Low 8.4-10.4 [facility] Comment on above: Performed By: #### L [id number] ####Typesetter Apprentice: MARY SOTELO ([phone])[facility] ([facility])[address] [place] [address] [place] Chloride [Moles/Vol] 105 mmol/L Normal 98-107 [facility] Comment on above: Performed By: #### L [id number] ####Typesetter Apprentice: MARY SOTELO ([phone])[facility])[address] [place] [address] CO2 [Moles/Vol] 26 mmol/L Normal 22-30 [facility] Comment on above: Performed By: #### L [id number] ####Typesetter Apprentice: MARY SOTELO ([phone])[facility] ([facility])[address] [place] [address] Creatinine [Mass/Vol] 1.37 mg/dL High 0.52-1.04 [facility] Comment on above: Performed By: #### L [id number] ####Typesetter Apprentice: MARY SOTELO ([phone])[facility])[address] [place] [address] GLOMERULAR FILTRATION RATE ML/MIN/1.73 SQ M.PREDICTED 43.2 mL/min/1.73m*2 Low >60.0 [facility] Comment on above: Result Comment: Calc ulation based on the Chronic Kidney Disease Epidemiology Collaboration (CKD-EPI) equation refit without adjustment for race Performed By: #### L [id number] ####Typesetter Apprentice: MARY SOTELO ([phone])[facility] ([facility])[address] [place] [address] [place] Glucose [Mass/Vol] 149 mg/dL High 70-100 [facility] Comment on above: Performed By: #### L [id number] ####Typesetter Apprentice: MARY SOTELO ([phone])[facility] ([facility])[address] [place] [address] [place] Phosphate [Mass/Vol] 4.1 mg/dL Normal 2.5-4.5 [facility] Comment on above: Performed By: #### L [id number] ####Typesetter Apprentice: MARY SOTELO ([phone])[facility] ([facility])[address] [place] [address] [place] Potassium [Moles/Vol] 5.4 mmol/L High 3.5-5.1 [facility] Comment on above: Performed By: #### L [id number] ####Typesetter Apprentice: MARY SOTELO ([phone])[facility] ([facility])[address] [place] [address] Sodium [Moles/Vol] 132 mmol/L Low 135-145 [facility] Comment on above: Performed By: #### L [id number] ####Typesetter Apprentice: MARY SOTELO ([phone])[facility] ([facility])[address] [place] [address] Urea nitrogen [Mass/Vol] 31 mg/dL High 7-17 [facility] Comment on above: Performed By: #### L [id number] ####Typesetter Apprentice: MARY SOTELO ([phone])[facility] ([facility])[address] [place] [address] Albumin [Mass/Vol] 2.0 g/dL Low 3.5-5.0 [facility] Comment on above: Performed By: #### L [id number] ####Typesetter Apprentice: MARY SOTELO ([phone])[facility] ([facility])[address] [place] [address] Anion gap [Moles/Vol] 1 mmol/L Low 3-13 [facility] Comment on above: Performed By: #### L [id number] ####Typesetter Apprentice: MARY SOTELO ([phone])[facility] ([facility])[address] [place] [address] Calcium [Mass/Vol] 7.6 mg/dL Low 8.4-10.4 [facility] Comment on above: Performed By: #### L [id number] ####Typesetter Apprentice: MARY SOTELO ([phone])[facility] ([facility])[address] [place] [address] [place] Chloride [Moles/Vol] 106 mmol/L Normal 98-107 [facility] Comment on above: Performed By: #### L [id number] ####Typesetter Apprentice: MARY SOTELO ([phone])[facility] ([facility])[address] [place] [address] [place] CO2 [Moles/Vol] 24 mmol/L Normal 22-30 [facility] Comment on above: Performed By: #### L [id number] ####Typesetter Apprentice: MARY SOTELO ([phone])[facility] ([facility])[address] [place] [address] Creatinine [Mass/Vol] 1.54 mg/dL High 0.52-1.04 [facility] Comment on above: Performed By: #### L [id number] ####Typesetter Apprentice: MARY SOTELO ([phone])[facility] ([facility])[address] [place] [address] GLOMERULAR FILTRATION RATE ML/MIN/1.73 SQ M.PREDICTED 37.5 mL/min/1.73m*2 Low >60.0 [facility] Comment on above: Result Comment: Calc ulation based on the Chronic Kidney Disease Epidemiology Collaboration (CKD-EPI) equation refit without adjustment for race Performed By: #### L [id number] ####Typesetter Apprentice: MARY SOTELO ([phone])[facility] ([facility])[address] [place] [address] [place] Glucose [Mass/Vol] 147 mg/dL High 70-100 [facility] Comment on above: Performed By: #### L [id number] ####Typesetter Apprentice: MARY SOTELO ([phone])[facility] ([facility])[address] [place] [address] Phosphate [Mass/Vol] 4.2 mg/dL Normal 2.5-4.5 [facility] Comment on above: Performed By: #### L [id number] ####Typesetter Apprentice: MARY SOTELO ([phone])[facility] ([facility])[address] [place] [address] [place] Potassium [Moles/Vol] 5.3 mmol/L High 3.5-5.1 [facility] Comment on above: Performed By: #### L [id number] ####Typesetter Apprentice: MARY SOTELO ([phone])[facility] ([facility])[address] [place] [address] [place] Sodium [Moles/Vol] 132 mmol/L Low 135-145 [facility] Comment on above: Performed By: #### L AB19 ####Typesetter Apprentice: MARY SOTELO ([phone])[facility])[address] [place] [address] Urea nitrogen [Mass/Vol] 32 mg/dL High 7-17 [facility] Comment on above: Performed By: #### L [id number] ####Typesetter Apprentice: MARY SOTELO ([phone])[facility])[address] [place] [address] Renal function 2000 panelon 07-30-2024 Albumin [Mass/Vol] 2.0 g/dL Low 3.5 - 5.0 g/dL [facility] Anion gap [Moles/Vol] 0 mmol/L Low 3 - 13 mmol/L [facility] Calcium [Mass/Vol] 8.7 mg/dL 8.4 - 10. 4 mg/dL [facility] XR CHEST 1 VIEWon 07-30-2024 XR CHEST 1 VIEW Normal [facility] BLOOD GAS ARTERIALon 024 Base excess Calc (Bld) [Moles/Vol] 0.9 mmol/L Normal -3.0-3.0 [facility] Comment on above: Performed By: #### L [id number] ####Typesetter Apprentice: MARY SOTELO ([phone])[facility])[address] [place] [address] CO2 [Moles/Vol] 26.3 mmol/L Normal 23.0-27.0 [facility] Comment on above: Performed By: #### L [id number] ####Typesetter Apprentice: MARY SOTELO ([phone])[facility] ([facility])[address] [place] [address] HCO3 (Bld) [Moles/Vol] 25.1 mmol/L High 21.0-25.0 [facility] Comment on above: Performed By: #### L AB76 ####Typesetter Apprentice: MARY SOTELO ([phone])[facility])[address] [place] [address] Hemoglobin (Bld) [Mass/Vol] 8.3 g/dL Normal Screen only [facility] Comment on above: Performed By: #### L [id number] ####Typesetter Apprentice: MARY SOTELO ([phone])[facility] ([facility])[address] [place] [address] OXYGEN SATURATION (%) IN ARTERIAL BLOOD 97.1 % Normal 95.0-100.0 [facility] Comment on above: Performed By: #### L AB76 ####Typesetter Apprentice: MARY SOTELO ([phone])[facility] ([facility])[address] [place] [address] PCO2 ARTERIAL 37.9 mm Hg Normal >35.0-<45.0 [facility] Comment on above: Performed By: #### L [id number] ####Typesetter Apprentice: MARY SOTELO ([phone])[facility] ([facility])[address] [place] [address] PH ARTERIAL 7.439 Normal 7.350-7.450 [facility] Comment on above: Performed By: #### L AB76 ####Typesetter Apprentice: MARY SOTELO ([phone])[facility] ([facility])[address] [place] [address] PO2 ARTERIAL 96.3 mm Hg Normal 80.0-100.0 [facility] Comment on above: Performed By: #### L [id number] ####Typesetter Apprentice: MARY SOTELO ([phone])[facility])[address] [place] [address] SOURCE OF OXYGEN 30% Oxygen Normal [facility] Comment on above: Result Comment: vent ilator Performed By: #### L [id number] ####Typesetter Apprentice: MARY SOTELO ([phone])[facility] ([facility])[address] [place] [address] Base excess Calc (Bld) [Moles/Vol] 3.5 mmol/L High -3.0-3.0 [facility] Comment on above: Performed By: #### L [id number] ####Typesetter Apprentice: MARY SOTELO ([phone])[facility] ([facility])[address] [place] [address] [place] CO2 [Moles/Vol] 27.7 mmol/L High 23.0-27.0 [facility] Comment on above: Performed By: #### L [id number] ####Typesetter Apprentice: MARY SOTELO ([phone])[facility] [place] [address] HCO3 (Bld) [Moles/Vol] 26.7 mmol/L High 21.0-25.0 [facility] Comment on above: Performed By: #### L AB76 ####Typesetter Apprentice: MARY SOTELO ([phone])[facility] [place] [address] Hemoglobin (Bld) [Mass/Vol] 8.0 g/dL Normal Screen only [facility] Comment on above: Performed By: #### L [id number] ####Typesetter Apprentice: MARY SOTELO ([phone])[facility] [place] [address] OXYGEN SATURATION (%) IN ARTERIAL BLOOD 96.2 % Normal 95.0-100.0 [facility] Comment on above: Performed By: #### L [id number] ####Typesetter Apprentice: MARY SOTELO ([phone])[facility] [place] [address] PCO2 ARTERIAL 34.5 mm Hg Low >35.0-<45.0 [facility] Comment on above: Performed By: #### L [id number] ####Typesetter Apprentice: MARY SOTELO ([phone])[facility] [place] [address] PH ARTERIAL 7.506 High 7.350-7.450 [facility] Comment on above: Performed By: #### L [id number] ####Typesetter Apprentice: MARY SOTELO ([phone])[facility] [place] [address] PO2 ARTERIAL 88.9 mm Hg Normal 80.0-100.0 [facility] Comment on above: Performed By: #### L [id number] ####Typesetter Apprentice: MARY SOTELO ([phone])[facility])[address] [place] [address] SOURCE OF OXYGEN 30% Oxygen Normal [facility] Comment on above: Result Comment: vent ilator Performed By: #### L [id number] ####Typesetter Apprentice: MARY SOTELO ([phone])[facility] ([facility])[address] [place] [address] Base excess Calc (Bld) [Moles/Vol] 1.9 mmol/L Normal -3.0-3.0 [facility] Comment on above: Performed By: #### L [id number] ####Typesetter Apprentice: MARY SOTELO ([phone])[facility])[address] [place] [address] CO2 [Moles/Vol] 26.0 mmol/L Normal 23.0-27.0 [facility] Comment on above: Performed By: #### L [id number] ####Typesetter Apprentice: MARY SOTELO ([phone])[facility])[address] [place] [address] HCO3 (Bld) [Moles/Vol] 25.0 mmol/L Normal 21.0-25.0 [place] [facility] Comment on above: Performed By: #### L [id number] ####Typesetter Apprentice: MARY SOTELO ([phone])[facility])[address] [place] [address] Hemoglobin (Bld) [Mass/Vol] 8.2 g/dL Normal Screen only [facility] Comment on above: Performed By: #### L [id number] ####Typesetter Apprentice: MARY SOTELO ([phone])[facility])[address] [place] [address] OXYGEN SATURATION (%) IN ARTERIAL BLOOD 97.9 % Normal 95.0-100.0 [facility] Comment on above: Performed By: #### L [id number] ####Typesetter Apprentice: MARY SOTELO ([phone])[facility] ([facility])[address] [place] [address] PCO2 ARTERIAL 32.6 mm Hg Low >35.0-<45.0 [facility] Comment on above: Performed By: #### L [id number] ####Typesetter Apprentice: MARY SOTELO ([phone])[facility] [place] [address] PH ARTERIAL 7.502 High 7.350-7.450 [facility] Comment on above: Performed By: #### L [id number] ####Typesetter Apprentice: MARY SOTELO ([phone])[facility] ([facility])[address] [place] [address] PO2 ARTERIAL 110.0 mm Hg High 80.0-100.0 [facility] Comment on above: Performed By: #### L [id number] ####Typesetter Apprentice: MARY SOTELO ([phone])[facility] ([facility])[address] [place] [address] SOURCE OF OXYGEN Vent Normal [facility] Comment on above: Performed By: #### L [id number] ####Typesetter Apprentice: MARY SOTELO ([phone])[facility] ([facility])[address] [place] [address] CALCIUM, IONIZEDon 4 CALCIUM IONIZED 4.70 mg/dL Normal 4.30-5.20 [facility] Comment on above: Performed By: #### L AB54 ####Typesetter Apprentice: MARY SOTELO ([phone])[facility] [place] [address] PH, IONIZED CALCIUM 7.41 Normal 7.31-7.46 [facility] Comment on above: Performed By: #### L AB54 ####Typesetter Apprentice: MARY SOTELO ([phone])[facility] ([facility])[address] [place] [address] CALCIUM IONIZED 4.30 mg/dL Normal 4.30-5.20 [facility] Comment on above: Performed By: #### L AB54 ####Typesetter Apprentice: MARY SOTELO ([phone])[facility])[address] [place] [address] PH, IONIZED CALCIUM 7.44 Normal 7.31-7.46 [facility] Comment on above: Performed By: #### L AB54 ####Typesetter Apprentice: MARY SOTELO ([phone])[facility])[address] [place] [address] CALCIUM IONIZED 4.10 mg/dL Low 4.30-5.20 [facility] Comment on above: Performed By: #### L AB54 ####Typesetter Apprentice: MARY SOTELO ([phone])[facility])[address] [place] [address] PH, IONIZED CALCIUM 7.51 High 7.31-7.46 [facility] Comment on above: Performed By: #### L AB54 ####Typesetter Apprentice: MARY SOTELO ([phone])[facility])[address] [place] [address] CBC WITH AUTO DIFFERENTIALon 07-29-2024 Basophils (Bld) [#/Vol] 0.0 10*3/uL Normal 0.0-0.2 [facility] Comment on above: Performed By: #### L [id number] ####Typesetter Apprentice: MARY SOTELO ([phone])[facility])[address] [place] [address] Basophils/100 WBC (Bld) 0.0 % Normal 0.0-2.0 [facility] Comment on above: Performed By: #### L [id number] ####Typesetter Apprentice: MARY SOTELO ([phone])[address] Eosinophils (Bld) [#/Vol] 0.0 10*3/uL Normal 0.0-0.5 [facility] Comment on above: Performed By: #### L [id number] ####Typesetter Apprentice: MARY [phone])[facility])[address] [place] [address] Eosinophils/100 WBC (Bld) 0.0 % Normal 0.0-6.0 [facility] Comment on above: Performed By: #### L [id number] ####Typesetter Apprentice: MARY SOTELO ([phone])[facility])[address] [place] [address] Erythrocyte distribution width (RBC) [Ratio] 15.2 % High 11.5-15.0 [facility] Comment on above: Performed By: #### L [id number] ####Typesetter Apprentice: MARY SOTELO ([phone])[facility])[address] [place] [address] Hematocrit (Bld) [Volume fraction] 23.1 % Low 35.0-47.0 [facility] Comment on above: Performed By: #### L [id number] ####Typesetter Apprentice: MARY SOTELO ([phone])[facility])[address] [place] [address] Hemoglobin (Bld) [Mass/Vol] 7.7 g/dL Low 11.7-16.0 [facility] Comment on above: Performed By: #### L [id number] ####Typesetter Apprentice: MARY SOTELO ([phone])[facility])[address] [place] [address] IMMATURE GRANS % 0.5 % Normal 0.0-2.0 [facility] Comment on above: Performed By: #### L [id number] ####Typesetter Apprentice: MARY SOTELO ([phone])[facility])[address] [place] [address] IMMATURE GRANS ABSOLUTE 0.0 10*3/uL Normal <0.1 [facility] Comment on above: Performed By: #### L [id number] ####Typesetter Apprentice: MARY SOTELO ([phone])[facility])[address] [place] [address] [place] Lymphocytes (Bld) [#/Vol] 0.5 10*3/uL Low 1.0-4.3 [facility] Comment on above: Performed By: #### L [id number] ####Typesetter Apprentice: MARY SOTELO ([phone])[facility])[address] [place] [address] Lymphocytes/100 WBC (Bld) 6.9 % Low 15.0-45.0 [facility] Comment on above: Performed By: #### L [id number] ####Typesetter Apprentice: MARY SOTELO ([phone])[facility])[address] [place] [address] MCH (RBC) [Entitic mass] 28.6 pg Normal 26.0-34.0 [facility] Comment on above: Performed By: #### L [id number] ####Typesetter Apprentice: MARY SOTELO ([phone])[facility])[address] [place] [address] MCHC 33.3 % Normal 30.5-36.0 [facility] Comment on above: Performed By: #### L [id number] ####Typesetter Apprentice: MARY SOTELO ([phone])[facility])[address] [place] [address] MCV (RBC) [Entitic vol] 85.9 fL Normal 77.0-99.0 [facility] Comment on above: Performed By: #### L [id number] ####Typesetter Apprentice: MARY SOTELO ([phone])[facility])[address] [place] [address] Monocytes (Bld) [#/Vol] 0.4 10*3/uL Normal 0.0-0.9 [facility] Comment on above: Performed By: #### L [id number] ####Typesetter Apprentice: MARY SOTELO ([phone])[facility])[address] [place] [address] Monocytes/100 WBC (Bld) 6.5 % Normal 5.0-13.0 [facility] Comment on above: Performed By: #### L [id number] ####Typesetter Apprentice: MARY SOTELO ([phone])[facility] ([facility])[address] [place] [address] NEUTROPHILS ABSOLUTE 5.6 10*3/uL Normal 1.8-7.5 [facility] Comment on above: Performed By: #### L [id number] ####Typesetter Apprentice: MARY SOTELO ([phone])[facility] ([facility])[address] [place] [address] Neutrophils/100 WBC (Bld) 86.1 % High 38.0-82.0 [facility] Comment on above: Performed By: #### L [id number] ####Typesetter Apprentice: MARY SOTELO ([phone])[facility])[address] [place] [address] NRBC 0.0 /100 WBCs Normal 0.0-2.0 [facility] Comment on above: Performed By: #### L [id number] ####Typesetter Apprentice: MARY SOTELO ([phone])[facility] ([facility])[address] [place] [address] Platelet mean volume (Bld) [Entitic vol] 11.0 fL Normal 9.0-12.7 [facility] Comment on above: Performed By: #### L [id number] ####Typesetter Apprentice: MARY SOTELO ([phone])[facility])[address] [place] [address] [place] Platelets (Bld) [#/Vol] 141 10*3/uL Normal 140-440 [facility] Comment on above: Performed By: #### L [id number] ####Typesetter Apprentice: MARY SOTELO ([phone])[facility])[address] [place] [address] RBC (Bld) [#/Vol] 2.69 10*6/uL Low 3.80-5.20 [facility] Comment on above: Performed By: #### L [id number] ####Typesetter Apprentice: MARY SOTELO ([phone])[facility] ([facility])[address] [place] [address] WBC (Bld) [#/Vol] 6.5 10*3/uL Normal 3.6-10.7 [facility] Comment on above: Performed By: #### L [id number] ####Typesetter Apprentice: MARY SOTELO ([phone])[facility])[address] [place] [address] CKon 07-29-2024 CK [Catalytic activity/Vol] 564 U/L High 30-170 [facility] Comment on above: Performed By: #### L AB19, LAB62 ####Typesetter Apprentice: MARY SOTELO ([phone])[facility])[address] [place] [address] ECG 12-LEADon 07-29-2024 ECG 12-LEAD IMPRESSION: Sinus rhythm Multiple ventricular premature complexes Anterior infarct, old Electronically Signed On 07-29-2024 20:06:11 EDT by Eladio Valle [facility] GLUCOSE, RANDOMon 07-29-2024 Glucose [Mass/Vol] 163 mg/dL High 70-100 [facility] Comment on above: Performed By: #### L AB82 ####Typesetter Apprentice: MARY SOTELO ([phone])[facility])[address] [place] [address] IDNon 07-29-2024 IDN Normal [facility] Nursing Noteon 07-29-2024 Nursing Note Patient returned fro m IR. Normal [facility] Nursing Note Normal [facility] Nursing Note To IR for tunneled v as cath. Normal [facility] Nursing Note Dr. Mahajan came by an d said EEG could be discontinued. Normal [facility] Nursing Note Called IR. Patient will get her tunneled catheter this afternoon. Normal [facility] Nursing Note Dr. Heath and tea philip here. They were notified of issues with vas cath. They will talk to Renal to decide what to do. Repostion line vs cath roel vs HD? Normal [facility] Nursing Note CRRT alarming extremely negative again. Blood returned. Set disposed. Vas cath lines flushed. Normal [facility] Nursing Note CRRT alarming extremely negative pressure. Lines clamped and disconnected. Vas cath ports flushed again. CRRT restarted. Normal [facility] Nursing Note CRRT alarming extremely negative. Lines clamped. Vas cath ports flushed. Red line still pulls back easier. Will keep return line attached to red port. Normal [facility] Nursing Note CRRT alarming extremely negative. Lines clamped. Vas cath ports flushed. Red port pulls back easier. Will attach return line to red port. CRRT restarted. Normal [facility] Nursing Note Cath roel removed fro m vas cath. Both ports flush easily but neither draw back easily. CRRT started. Normal [facility] Nursing Note CRRT paused d/t acce ss line clotting at approximately 4535-3629. Trouble shooting attempted. Cath flow ordered and given at 0646. Normal [facility] Progress Noteon 07-29-2024 Progress Note 07/29/24 1249 Wean Screen Safety Screen Spontaneous Breathing Trial (SBT - RT) (sedation not weaned or turned off) No SBT done. Normal [facility] Progress Note Normal [facility] Progress Note Normal [facility] Progress Note OCCUPATIONAL THERAPY [facility] Name/MRN: Sandy Deng ([id number]) Date: 07/29/2024 Pt remains on strict bed rest. Will continue to follow. Jamey Muro OT Normal [facility] Progress Note Normal [facility] Progress Note Normal [facility] Progress Note Normal [facility] RENAL FUNCTION PANELon 07-29 Albumin [Mass/Vol] 2.0 g/dL Low 3.5-5.0 [facility] Comment on above: Performed By: #### L [id number] ####Typesetter Apprentice: MARY SOTELO ([phone])[facility] ([facility])[address] [place] [address] Anion gap [Moles/Vol] 2 mmol/L Low 3-13 [facility] Comment on above: Performed By: #### L AB19 ####Typesetter Apprentice: MARY SOTELO ([phone])[facility] ([facility])[address] [place] [address] Calcium [Mass/Vol] 8.6 mg/dL Normal 8.4-10.4 [facility] Comment on above: Performed By: #### L AB19 ####Typesetter Apprentice: MARY SOTELO ([phone])[facility] [place] [address] Chloride [Moles/Vol] 106 mmol/L Normal 98-107 [facility] Comment on above: Performed By: #### L AB19 ####Typesetter Apprentice: MARY SOTELO ([phone])[facility])[address] [place] [address] CO2 [Moles/Vol] 26 mmol/L Normal 22-30 [facility] Comment on above: Performed By: #### L AB19 ####Typesetter Apprentice: MARY SOTELO ([phone])[facility])[address] [place] [address] Creatinine [Mass/Vol] 1.94 mg/dL High 0.52-1.04 [facility] Comment on above: Performed By: #### L AB19 ####Typesetter Apprentice: MARY SOTELO ([phone])[facility] ([facility])[address] [place] [address] GLOMERULAR FILTRATION RATE ML/MIN/1.73 SQ M.PREDICTED 28.5 mL/min/1.73m*2 Low >60.0 [facility] Comment on above: Result Comment: Calc ulation based on the Chronic Kidney Disease Epidemiology Collaboration (CKD-EPI) equation refit without adjustment for race Performed By: #### L AB19 ####Typesetter Apprentice: MARY SOTELO ([phone])[facility] ([facility])[address] [place] [address] Glucose [Mass/Vol] 33 mg/dL Critically low 70-100 [facility] Comment on above: Performed By: #### L AB19 ####Typesetter Apprentice: MARY SOTELO ([phone])[facility])[address] [place] [address] Phosphate [Mass/Vol] 4.4 mg/dL Normal 2.5-4.5 [facility] Comment on above: Performed By: #### L AB19 ####Typesetter Apprentice: MARY SOTELO ([phone])[facility] [place] [address] Potassium [Moles/Vol] 5.0 mmol/L Normal 3.5-5.1 [facility] Comment on above: Performed By: #### L AB19 ####Typesetter Apprentice: MARY SOTELO ([phone])[facility])[address] [place] [address] Sodium [Moles/Vol] 133 mmol/L Low 135-145 [facility] Comment on above: Performed By: #### L AB19 ####Typesetter Apprentice: MARY SOTELO ([phone])[facility] [place] [address] Urea nitrogen [Mass/Vol] 41 mg/dL High 7-17 [facility] Comment on above: Performed By: #### L AB19 ####Typesetter Apprentice: MARY SOTELO ([phone])[facility] ([facility])[address] [place] [address] Albumin [Mass/Vol] 1.9 g/dL Low 3.5-5.0 [facility] Comment on above: Performed By: #### L AB19, LAB62 ####Typesetter Apprentice: MARY SOTELO ([phone])[facility] [place] [address] [place] Anion gap [Moles/Vol] 2 mmol/L Low 3-13 [facility] Comment on above: Performed By: #### L AB19, LAB62 ####Typesetter Apprentice: MARY SOTELO ([phone])[facility] [place] [address] [place] Calcium [Mass/Vol] 7.6 mg/dL Low 8.4-10.4 [facility] Comment on above: Performed By: #### L AB19, LAB62 ####Typesetter Apprentice: MARY SOTELO ([phone])[facility] ([facility])[address] [place] [address] [place] Chloride [Moles/Vol] 104 mmol/L Normal 98-107 [facility] Comment on above: Performed By: #### L AB19, LAB62 ####Typesetter Apprentice: MARY SOTELO ([phone])[facility] ([facility])[address] [place] [address] [place] CO2 [Moles/Vol] 26 mmol/L Normal 22-30 [facility] Comment on above: Performed By: #### L AB19, LAB62 ####Typesetter Apprentice: MARY SOTELO ([phone])[facility] ([facility])[address] [place] [address] Creatinine [Mass/Vol] 1.59 mg/dL High 0.52-1.04 [facility] Comment on above: Performed By: #### L AB19, LAB62 ####Typesetter Apprentice: MARY SOTELO ([phone])[facility] ([facility])[address] [place] [address] [place] GLOMERULAR FILTRATION RATE ML/MIN/1.73 SQ M.PREDICTED 36.1 mL/min/1.73m*2 Low >60.0 [facility] Comment on above: Result Comment: Calc ulation based on the Chronic Kidney Disease Epidemiology Collaboration (CKD-EPI) equation refit without adjustment for race Performed By: #### L AB19, LAB62 ####Typesetter Apprentice: MARY SOTELO ([phone])[facility] ([facility])[address] [place] [address] [place] Glucose [Mass/Vol] 145 mg/dL High 70-100 [facility] Comment on above: Performed By: #### L AB19, LAB62 ####Typesetter Apprentice: MARY SOTELO ([phone])[facility] ([facility])[address] [place] [address] [place] Phosphate [Mass/Vol] 3.7 mg/dL Normal 2.5-4.5 [facility] Comment on above: Performed By: #### L AB19, LAB62 ####Typesetter Apprentice: MARY SOTELO ([phone])[facility] ([facility])[address] [place] [address] Potassium [Moles/Vol] 4.9 mmol/L Normal 3.5-5.1 [facility] Comment on above: Performed By: #### L AB19, LAB62 ####Typesetter Apprentice: MARY SOTELO ([phone])[facility] ([facility])[address] [place] [address] Sodium [Moles/Vol] 131 mmol/L Low 135-145 [facility] Comment on above: Performed By: #### L AB19, LAB62 ####Typesetter Apprentice: MARY SOTELO ([phone])[facility] ([facility])[address] [place] [address] Urea nitrogen [Mass/Vol] 35 mg/dL High 7-17 [facility] Comment on above: Performed By: #### L AB19, LAB62 ####Typesetter Apprentice: MARY SOTELO ([phone])[facility] ([facility])[address] [place] [address] Albumin [Mass/Vol] 2.0 g/dL Low 3.5-5.0 [facility] Comment on above: Performed By: #### L AB19 ####Typesetter Apprentice: MARY SOTELO ([phone])[facility] ([facility])[address] [place] [address] Anion gap [Moles/Vol] 1 mmol/L Low 3-13 [facility] Comment on above: Performed By: #### L AB19 ####Typesetter Apprentice: MARY SOTELO ([phone])[facility] ([facility])[address] [place] [address] Calcium [Mass/Vol] 7.5 mg/dL Low 8.4-10.4 [facility] Comment on above: Performed By: #### L AB19 ####Typesetter Apprentice: MARY SOTELO ([phone])[facility] ([facility])[address] [place] [address] Chloride [Moles/Vol] 104 mmol/L Normal 98-107 [facility] Comment on above: Performed By: #### L AB19 ####Typesetter Apprentice: MARY SOTELO ([phone])[facility] ([facility])[address] [place] [address] CO2 [Moles/Vol] 25 mmol/L Normal 22-30 [facility] Comment on above: Performed By: #### L AB19 ####Typesetter Apprentice: MARY SOTELO ([phone])[facility] ([facility])[address] [place] [address] Creatinine [Mass/Vol] 1.32 mg/dL High 0.52-1.04 [facility] Comment on above: Performed By: #### L AB19 ####Typesetter Apprentice: MARY SOTELO ([phone])[facility] ([facility])[address] [place] [address] GLOMERULAR FILTRATION RATE ML/MIN/1.73 SQ M.PREDICTED 45.2 mL/min/1.73m*2 Low >60.0 [facility] Comment on above: Result Comment: Calc ulation based on the Chronic Kidney Disease Epidemiology Collaboration (CKD-EPI) equation refit without adjustment for race Performed By: #### L AB19 ####Typesetter Apprentice: MARY SOTELO ([phone])[facility] ([facility])[address] [place] [address] [place] Glucose [Mass/Vol] 206 mg/dL High 70-100 [facility] Comment on above: Performed By: #### L AB19 ####Typesetter Apprentice: MARY SOTELO ([phone])[facility] ([facility])[address] [place] [address] [place] Phosphate [Mass/Vol] 3.2 mg/dL Normal 2.5-4.5 [facility] Comment on above: Performed By: #### L AB19 ####Typesetter Apprentice: MARY [id number])[facility] ([facility])[address] [place] [address] [place] Potassium [Moles/Vol] 5.2 mmol/L High 3.5-5.1 [facility] Comment on above: Performed By: #### L AB19 ####Typesetter Apprentice: MARY SOTELO ([phone])[facility] ([facility])[address] [place] [id number] [place] [address] Sodium [Moles/Vol] 131 mmol/L Low 135-145 [facility] Comment on above: Performed By: #### L AB19 ####Typesetter Apprentice: MARY SOTELO ([phone])[facility] [place] [address] Urea nitrogen [Mass/Vol] 28 mg/dL High 7-17 [facility] Comment on above: Performed By: #### L AB19 ####Typesetter Apprentice: MARY SOTELO ([phone])[facility] ([facility])[address] [place] [address] Respiratory Cultureon 2023 RESPC Normal [facility] Comment on above: Performed By: #### M 100.2400, M100.2000 ####[facility] [id number] [place], [address] XR CHEST 1 VIEWon 07-29-2024 XR CHEST 1 VIEW Normal [facility] BASIC METABOLIC PANELon 07-05 Anion gap [Moles/Vol] 4 mmol/L Normal 3-13 [facility] Comment on above: Performed By: #### L AB103, [id number], LAB15 ####Typesetter Apprentice: MARY SOTELO ([phone])[facility] [place] [address] Calcium [Mass/Vol] 7.4 mg/dL Low 8.4-10.4 [facility] Comment on above: Performed By: #### L AB103, [id number], LAB15 ####Typesetter Apprentice: MARY SOTELO ([phone])[facility] [place] [address] [place] Chloride [Moles/Vol] 104 mmol/L Normal 98-107 [facility] Comment on above: Performed By: #### L AB103, [id number], LAB15 ####Typesetter Apprentice: MARY SOTELO ([phone])[facility])[address] [place] [address] CO2 [Moles/Vol] 23 mmol/L Normal 22-30 [facility] Comment on above: Performed By: #### L AB103, [id number], LAB15 ####Typesetter Apprentice: AMRY SOTELO ([phone])[facility])[address] [place] [address] Creatinine [Mass/Vol] 1.80 mg/dL High 0.52-1.04 [facility] Comment on above: Performed By: #### L AB103, [id number], LAB15 ####Typesetter Apprentice: MARY SOTELO ([phone])[facility])[address] [place] [address] GLOMERULAR FILTRATION RATE ML/MIN/1.73 SQ M.PREDICTED 31.1 mL/min/1.73m*2 Low >60.0 [facility] Comment on above: Result Comment: Calc ulation based on the Chronic Kidney Disease Epidemiology Collaboration (CKD-EPI) equation refit without adjustment for race Performed By: #### L AB103, [id number], LAB15 ####Typesetter Apprentice: MARY SOTELO ([phone])[facility] ([facility])[address] [place] [address] Glucose [Mass/Vol] 143 mg/dL High 70-100 [facility] Comment on above: Performed By: #### L AB103, [id number], LAB15 ####Typesetter Apprentice: MARY SOTELO ([phone])[facility])[address] [place] [address] Potassium [Moles/Vol] 4.5 mmol/L Normal 3.5-5.1 [facility] Comment on above: Performed By: #### L AB103, [id number], LAB15 ####Typesetter Apprentice: MARY SOTELO ([phone])[facility])[address] [place] [address] Sodium [Moles/Vol] 131 mmol/L Low 135-145 [facility] Comment on above: Performed By: #### L AB103, [id number], LAB15 ####Typesetter Apprentice: MARY SOTELO ([phone])[facility] ([facility])[address] [place] [address] Urea nitrogen [Mass/Vol] 34 mg/dL High 7-17 [facility] Comment on above: Performed By: #### L AB103, [id number], LAB15 ####Typesetter Apprentice: MARY SOTELO ([phone])[facility] ([facility])[address] [place] [address] BLOOD GAS ARTERIALon 024 Base excess Calc (Bld) [Moles/Vol] -1.2000 mmol/L Normal -3.0-3.0 [facility] Comment on above: Performed By: #### L AB76 ####Typesetter Apprentice: MARY SOTELO ([phone])[facility] ([facility])[address] [place] [address] [place] CO2 [Moles/Vol] 24.6 mmol/L Normal 23.0-27.0 [facility] Comment on above: Performed By: #### L AB76 ####Typesetter Apprentice: MARY SOTELO ([phone])[facility] ([facility])[address] [place] [address] [place] HCO3 (Bld) [Moles/Vol] 23.4 mmol/L Normal 21.0-25.0 [facility] Comment on above: Performed By: #### L AB76 ####Typesetter Apprentice: MARY SOTELO ([phone])[facility] ([facility])[address] [place] [address] Hemoglobin (Bld) [Mass/Vol] 9.2 g/dL Normal Screen only [facility] Comment on above: Performed By: #### L AB76 ####Typesetter Apprentice: MARY SOTELO ([phone])[facility])[address] [place] [address] OXYGEN SATURATION (%) IN ARTERIAL BLOOD 98.1 % Normal 95.0-100.0 [facility] Comment on above: Performed By: #### L AB76 ####Typesetter Apprentice: MARY SOTELO ([phone])[facility] ([facility])[address] [place] [address] PCO2 ARTERIAL 38.6 mm Hg Normal >35.0-<45.0 [facility] Comment on above: Performed By: #### L AB76 ####Typesetter Apprentice: MARY SOTELO ([phone])[facility] ([facility])[address] [place] [address] PH ARTERIAL 7.401 Normal 7.350-7.450 [facility] Comment on above: Performed By: #### L AB76 ####Typesetter Apprentice: MARY SOTELO ([phone])[facility] ([facility])[address] [place] [address] PO2 ARTERIAL 120.0 mm Hg High 80.0-100.0 [facility] Comment on above: Performed By: #### L AB76 ####Typesetter Apprentice: MARY SOTELO ([phone])[facility] ([facility])[address] [place] [address] SOURCE OF OXYGEN Vent Normal [facility] Comment on above: Performed By: #### L AB76 ####Typesetter Apprentice: MARY SOTELO ([phone])[facility] ([facility])[address] [place] [address] CALCIUM, IONIZEDon 4 CALCIUM IONIZED 4.10 mg/dL Low 4.30-5.20 [facility] Comment on above: Performed By: #### L AB54 ####Typesetter Apprentice: MARY SOTELO ([phone])[facility] ([facility])[address] [place] [address] PH, IONIZED CALCIUM 7.52 High 7.31-7.46 [facility] Comment on above: Performed By: #### L AB54 ####Typesetter Apprentice: MARY SOTELO ([phone])[facility])[address] [place] [address] CALCIUM IONIZED 4.30 mg/dL Normal 4.30-5.20 [facility] Comment on above: Performed By: #### L AB54 ####Typesetter Apprentice: MARY SOTELO ([phone])[facility] ([facility])[address] [place] [address] PH, IONIZED CALCIUM 7.46 Normal 7.31-7.46 [facility] Comment on above: Performed By: #### L AB54 ####Typesetter Apprentice: MARY SOTELO ([phone])[facility])[address] [place] [address] CALCIUM IONIZED 4.20 mg/dL Low 4.30-5.20 [facility] Comment on above: Performed By: #### L AB54 ####Typesetter Apprentice: MARY SOTELO ([phone])[facility] ([facility])[address] [place] [address] PH, IONIZED CALCIUM 7.38 Normal 7.31-7.46 [facility] Comment on above: Performed By: #### L AB54 ####Typesetter Apprentice: MARY SOTELO ([phone])[facility])[address] [place] [address] CALCIUM IONIZED 4.10 mg/dL Low 4.30-5.20 [facility] Comment on above: Performed By: #### L AB54 ####Typesetter Apprentice: MARY SOTELO ([phone])[facility])[address] [place] [address] PH, IONIZED CALCIUM 7.44 Normal 7.31-7.46 [facility] Comment on above: Performed By: #### L AB54 ####Typesetter Apprentice: MARY SOTELO ([phone])[facility])[address] [place] [address] [place] CARECOORDon 07-28-2024 CARECOORD Normal [facility] CBC WITH AUTO DIFFERENTIALon 07-28-2024 Basophils (Bld) [#/Vol] 0.0 10*3/uL Normal 0.0-0.2 [facility] Comment on above: Performed By: #### L [id number] ####Typesetter Apprentice: MARY SOTELO ([phone])[facility])[address] [place] [address] Basophils/100 WBC (Bld) 0.1 % Normal 0.0-2.0 [facility] Comment on above: Performed By: #### L [id number] ####Typesetter Apprentice: MARY SOTELO ([phone])[facility])[address] [place] [address] Eosinophils (Bld) [#/Vol] 0.0 10*3/uL Normal 0.0-0.5 [facility] Comment on above: Performed By: #### L [id number] ####Typesetter Apprentice: MARY SOTELO ([phone])[facility])[address] [place] [address] Eosinophils/100 WBC (Bld) 0.0 % Normal 0.0-6.0 [facility] Comment on above: Performed By: #### L [id number] ####Typesetter Apprentice: MARY SOTELO ([phone])[facility])[address] [place] [address] Erythrocyte distribution width (RBC) [Ratio] 15.0 % Normal 11.5-15.0 [facility] Comment on above: Performed By: #### L [id number] ####Typesetter Apprentice: MARY SOTELO ([phone])[facility])[address] [place] [address] Hematocrit (Bld) [Volume fraction] 25.8 % Low 35.0-47.0 [facility] Comment on above: Performed By: #### L [id number] ####Typesetter Apprentice: MARY SOTELO ([phone])[facility])[address] [place] [address] Hemoglobin (Bld) [Mass/Vol] 8.8 g/dL Low 11.7-16.0 [facility] Comment on above: Performed By: #### L [id number] ####Typesetter Apprentice: MARY SOTELO ([phone])[facility])[address] [place] [address] IMMATURE GRANS % 0.4 % Normal 0.0-2.0 [facility] Comment on above: Performed By: #### L [id number] ####Typesetter Apprentice: MARY SOTELO ([phone])[facility])[address] [place] [address] IMMATURE GRANS ABSOLUTE 0.1 10*3/uL High <0.1 [facility] Comment on above: Performed By: #### L [id number] ####Typesetter Apprentice: MARY SOTELO ([phone])[address] Lymphocytes (Bld) [#/Vol] 0.3 10*3/uL Low 1.0-4.3 [facility] Comment on above: Performed By: #### L [id number] ####Typesetter Apprentice: MARY SOTELO ([phone])[facility])[address] [place] [address] Lymphocytes/100 WBC (Bld) 2.9 % Low 15.0-45.0 [facility] Comment on above: Performed By: #### L [id number] ####Typesetter Apprentice: MARY SOTELO ([phone])[facility])[address] [place] [address] MCH (RBC) [Entitic mass] 28.9 pg Normal 26.0-34.0 [facility] Comment on above: Performed By: #### L [id number] ####Typesetter Apprentice: MARY SOTELO ([phone])[address] MCHC 34.1 % Normal 30.5-36.0 [facility] Comment on above: Performed By: #### L [id number] ####Typesetter Apprentice: MARY SOTELO ([phone])[facility] ([facility])[address] [place] [address] MCV (RBC) [Entitic vol] 84.6 fL Normal 77.0-99.0 [facility] Comment on above: Performed By: #### L [id number] ####Typesetter Apprentice: MAYR SOTELO ([phone])[facility])[address] [place] [address] Monocytes (Bld) [#/Vol] 0.4 10*3/uL Normal 0.0-0.9 [facility] Comment on above: Performed By: #### L [id number] ####Typesetter Apprentice: MARY SOTELO ([phone])[facility])[address] [place] [address] Monocytes/100 WBC (Bld) 3.6 % Low 5.0-13.0 [facility] Comment on above: Performed By: #### L [id number] ####Typesetter Apprentice: MARY SOTELO ([phone])[facility] ([facility])[address] [place] [address] NEUTROPHILS ABSOLUTE 10.7 10*3/uL High 1.8-7.5 [facility] Comment on above: Performed By: #### L [id number] ####Typesetter Apprentice: MARY SOTELO ([phone])[facility])[address] [place] [address] Neutrophils/100 WBC (Bld) 93.0 % High 38.0-82.0 [facility] Comment on above: Performed By: #### L [id number] ####Typesetter Apprentice: MARY SOTELO ([phone])[facility] ([facility])[address] [place] [address] NRBC 0.0 /100 WBCs Normal 0.0-2.0 [facility] Comment on above: Performed By: #### L [id number] ####Typesetter Apprentice: MARY SOTELO ([phone])[facility] ([facility])[address] [place] [address] Platelet mean volume (Bld) [Entitic vol] 10.5 fL Normal 9.0-12.7 [facility] Comment on above: Performed By: #### L [id number] ####Typesetter Apprentice: MARY SOTELO ([phone])[facility] ([facility])[address] [place] [address] Platelets (Bld) [#/Vol] 160 10*3/uL Normal 140-440 [facility] Comment on above: Performed By: #### L [id number] ####Typesetter Apprentice: MARY SOTELO ([phone])[facility] ([facility])[address] [place] [address] RBC (Bld) [#/Vol] 3.05 10*6/uL Low 3.80-5.20 [facility] Comment on above: Performed By: #### L [id number] ####Typesetter Apprentice: MARY SOTELO ([phone])[facility] ([facility])[address] [place] [address] WBC (Bld) [#/Vol] 11.5 10*3/uL High 3.6-10.7 [facility] Comment on above: Performed By: #### L [id number] ####Typesetter Apprentice: MARY SOTELO ([phone])[facility])[address] [place] [address] COMPREHENSIVE METABOLIC PANE [place] 07-28-2024 Albumin [Mass/Vol] 2.2 g/dL Low 3.5-5.0 [facility] Comment on above: Performed By: #### L AB103, [id number], LAB17 ####Typesetter Apprentice: MARY SOTELO ([phone])[facility] ([facility])[address] [place] [address] ALP [Catalytic activity/Vol] 78 U/L Normal 38-126 [facility] Comment on above: Performed By: #### L AB103, [id number], LAB17 ####Typesetter Apprentice: MARY SOTELO ([phone])[facility] ([facility])[address] [place] [address] ALT [Catalytic activity/Vol] 23 U/L Normal 0-34 [facility] Comment on above: Performed By: #### L AB103, [id number], LAB17 ####Typesetter Apprentice: MARY SOTELO ([phone])[facility] ([facility])[address] [place] [address] Anion gap [Moles/Vol] 4 mmol/L Normal 3-13 [facility] Comment on above: Performed By: #### L AB103, [id number], LAB17 ####Typesetter Apprentice: MARY SOTELO ([phone])[facility] ([facility])[address] [place] [address] AST [Catalytic activity/Vol] 44 U/L Normal 15-46 [facility] Comment on above: Performed By: #### Dora AB103, [id number], LAB17 ####Typesetter Apprentice: MARY SOTELO ([phone])[facility] ([facility])[address] [place] [address] Bilirubin [Mass/Vol] 0.5 mg/dL Normal 0.2-1.3 [facility] Comment on above: Performed By: #### Dora AB103, [id number], LAB17 ####Typesetter Apprentice: MARY SOTELO ([phone])[facility] ([facility])[address] [place] [address] Calcium [Mass/Vol] 7.3 mg/dL Low 8.4-10.4 [facility] Comment on above: Performed By: #### L AB103, [id number], LAB17 ####Typesetter Apprentice: MARY SOTELO ([phone])[facility] ([facility])[address] [place] [address] [place] Chloride [Moles/Vol] 102 mmol/L Normal 98-107 [facility] Comment on above: Performed By: #### L AB103, [id number], LAB17 ####Typesetter Apprentice: MARY SOTELO ([phone])[facility] ([facility])[address] [place] [address] [place] CO2 [Moles/Vol] 24 mmol/L Normal 22-30 [facility] Comment on above: Performed By: #### L AB103, [id number], LAB17 ####Typesetter Apprentice: MARY SOTELO ([phone])[facility])[address] [place] [address] Creatinine [Mass/Vol] 1.50 mg/dL High 0.52-1.04 [facility] Comment on above: Performed By: #### L AB103, ZCF035, LAB17 ####Typesetter Apprentice: MARY SOTELO ([phone])[facility])[address] [place] [address] GLOMERULAR FILTRATION RATE ML/MIN/1.73 SQ M.PREDICTED 38.8 mL/min/1.73m*2 Low >60.0 [facility] Comment on above: Result Comment: Calc ulation based on the Chronic Kidney Disease Epidemiology Collaboration (CKD-EPI) equation refit without adjustment for race Performed By: #### Dora ABErika, [id number], LAB17 ####Typesetter Apprentice: MARY SOTELO ([phone])[facility] ([facility])[address] [place] [address] Glucose [Mass/Vol] 149 mg/dL High 70-100 [facility] Comment on above: Performed By: #### Dora AB103, [id number], LAB17 ####Typesetter Apprentice: MARY SOTELO ([phone])[facility])[address] [place] [address] Potassium [Moles/Vol] 4.5 mmol/L Normal 3.5-5.1 [facility] Comment on above: Performed By: #### L AB103, [id number], LAB17 ####Typesetter Apprentice: MARY SOTELO ([phone])[facility])[address] [place] [address] Protein [Mass/Vol] 4.6 g/dL Low 6.3-8.2 [facility] Comment on above: Performed By: #### L AB103, [id number], LAB17 ####Typesetter Apprentice: MARY SOTELO ([phone])[facility])[address] [place] [address] [place] Sodium [Moles/Vol] 130 mmol/L Low 135-145 [facility] Comment on above: Performed By: #### L AB103, [id number], LAB17 ####Typesetter Apprentice: MARY SOTELO ([phone])[facility])[address] [place] [address] Urea nitrogen [Mass/Vol] 31 mg/dL High 7-17 [facility] Comment on above: Performed By: #### L AB103, [id number], LAB17 ####Typesetter Apprentice: MARY SOTELO ([phone])[facility])[address] [place] [address] Consulton 07-28-2024 Consult Normal [facility] ECG 12-LEADon 07-28-2024 ECG 12-LEAD IMPRESSION: Sinus rhythm Multiple ventricular premature complexes Anterior infarct, old Borderline T abnormalities Electronically Signed On 07-28-2024 12:41:46 EDT by Keisha Acosta Normal [facility] IDNon 07-28-2024 IDAnia Normal [facility] MAGNESIUMon 07-28-2024 Magnesium [Mass/Vol] 2.7 mg/dL High 1.6-2.3 [facility] Comment on above: Performed By: #### L AB103, [id number], LAB17 ####Typesetter Apprentice: MARY SOTELO ([phone])[facility])[address] [place] [address] Magnesium [Mass/Vol] 2.2 mg/dL Normal 1.6-2.3 [facility] Comment on above: Performed By: #### L AB103, [id number], LAB15 ####Typesetter Apprentice: MARY SOTELO ([phone])[facility] ([facility])[address] [place] [address] PHOSPHORUSon 07-28-2024 Phosphate [Mass/Vol] 3.5 mg/dL Normal 2.5-4.5 [facility] Comment on above: Performed By: #### L AB103, [id number], LAB17 ####Typesetter Apprentice: MARY SOTELO ([phone])[facility] ([facility])[address] [place] [address] Phosphate [Mass/Vol] 3.6 mg/dL Normal 2.5-4.5 [facility] Comment on above: Performed By: #### L AB103, [id number], LAB15 ####Typesetter Apprentice: MARY SOTELO ([phone])[facility] [place] [address] Progress Noteon 07-28-2024 Progress Note Normal [facility] Progress Note Normal [facility] Progress Note Normal [facility] Progress Note Normal [facility] RENAL FUNCTION PANELon 07-28 Albumin [Mass/Vol] 2.2 g/dL Low 3.5-5.0 [facility] Comment on above: Performed By: #### L AB19 ####Typesetter Apprentice: MARY SOTELO ([phone])[facility] [place] [address] Anion gap [Moles/Vol] 0 mmol/L Low 3-13 [facility] Comment on above: Performed By: #### L AB19 ####Typesetter Apprentice: MARY SOTELO ([phone])[facility] ([facility])[address] [place] [address] Calcium [Mass/Vol] 7.4 mg/dL Low 8.4-10.4 [facility] Comment on above: Performed By: #### L AB19 ####Typesetter Apprentice: MARY SOTELO ([phone])[facility] ([facility])[address] [place] [address] Chloride [Moles/Vol] 104 mmol/L Normal 98-107 [facility] Comment on above: Performed By: #### L AB19 ####Typesetter Apprentice: MARY SOTELO ([phone])[facility] ([facility])[address] [place] [address] CO2 [Moles/Vol] 26 mmol/L Normal 22-30 [facility] Comment on above: Performed By: #### L AB19 ####Typesetter Apprentice: MARY SOTELO ([phone])[facility] [place] [address] Creatinine [Mass/Vol] 1.26 mg/dL High 0.52-1.04 [facility] Comment on above: Performed By: #### L AB19 ####Typesetter Apprentice: MARY SOTELO ([phone])[facility] [place] [address] GLOMERULAR FILTRATION RATE ML/MIN/1.73 SQ M.PREDICTED 47.8 mL/min/1.73m*2 Low >60.0 [facility] Comment on above: Result Comment: Calc ulation based on the Chronic Kidney Disease Epidemiology Collaboration (CKD-EPI) equation refit without adjustment for race Performed By: #### L AB19 ####Typesetter Apprentice: MARY SOTELO ([phone])[facility] ([facility])[address] [place] [address] Glucose [Mass/Vol] 123 mg/dL High 70-100 [facility] Comment on above: Performed By: #### L AB19 ####Typesetter Apprentice: MARY SOTELO ([phone])[facility] ([facility])[address] [place] [address] Phosphate [Mass/Vol] 2.4 mg/dL Low 2.5-4.5 [facility] Comment on above: Performed By: #### L AB19 ####Typesetter Apprentice: MARY SOTELO ([phone])[facility] [place] [address] [place] Potassium [Moles/Vol] 4.6 mmol/L Normal 3.5-5.1 [facility] Comment on above: Performed By: #### L AB19 ####Typesetter Apprentice: MARY SOTELO ([phone])[facility] ([facility])[address] [place] [address] Sodium [Moles/Vol] 130 mmol/L Low 135-145 [facility] Comment on above: Performed By: #### L AB19 ####Typesetter Apprentice: MARY SOTELO ([phone])[facility])[address] [place] [address] Urea nitrogen [Mass/Vol] 28 mg/dL High 7-17 [facility] Comment on above: Performed By: #### L AB19 ####Typesetter Apprentice: MARY SOTELO ([phone])[facility] ([facility])[address] [place] [address] Albumin [Mass/Vol] 2.1 g/dL Low 3.5-5.0 [facility] Comment on above: Performed By: #### L AB19 ####Typesetter Apprentice: MARY SOTELO ([phone])[facility] ([facility])[address] [place] [address] Anion gap [Moles/Vol] 3 mmol/L Normal 3-13 [facility] Comment on above: Performed By: #### L [id number] ####Typesetter Apprentice: MARY SOTELO ([phone])[facility] ([facility])[address] [place] [address] Calcium [Mass/Vol] 7.8 mg/dL Low 8.4-10.4 [facility] Comment on above: Performed By: #### L [id number] ####Typesetter Apprentice: MARY SOTELO ([phone])[facility] ([facility])[address] [place] [address] Chloride [Moles/Vol] 103 mmol/L Normal 98-107 [facility] Comment on above: Performed By: #### L [id number] ####Typesetter Apprentice: MARY SOTELO ([phone])[facility] ([facility])[address] [place] [address] [place] CO2 [Moles/Vol] 26 mmol/L Normal 22-30 [facility] Comment on above: Performed By: #### L [id number] ####Typesetter Apprentice: MARY SOTELO ([phone])[facility] ([facility])[address] [place] [address] Creatinine [Mass/Vol] 1.33 mg/dL High 0.52-1.04 [facility] Comment on above: Performed By: #### L [id number] ####Typesetter Apprentice: MARY SOTELO ([phone])[facility] ([facility])[address] [place] [address] [place] GLOMERULAR FILTRATION RATE ML/MIN/1.73 SQ M.PREDICTED 44.8 mL/min/1.73m*2 Low >60.0 [facility] Comment on above: Result Comment: Calc ulation based on the Chronic Kidney Disease Epidemiology Collaboration (CKD-EPI) equation refit without adjustment for race Performed By: #### L AB19 ####Typesetter Apprentice: MARY SOTELO ([phone])[facility] ([facility])[address] [place] [address] Glucose [Mass/Vol] 139 mg/dL High 70-100 [facility] Comment on above: Performed By: #### L AB19 ####Typesetter Apprentice: MARY SOTELO ([phone])[facility] ([facility])[address] [place] [address] Phosphate [Mass/Vol] 2.7 mg/dL Normal 2.5-4.5 [facility] Comment on above: Performed By: #### L AB19 ####Typesetter Apprentice: MARY SOTELO ([phone])[facility] ([facility])[address] [place] [address] [place] Potassium [Moles/Vol] 4.2 mmol/L Normal 3.5-5.1 [facility] Comment on above: Performed By: #### L AB19 ####Typesetter Apprentice: MARY SOTELO ([phone])[facility])[address] [place] [address] [place] Sodium [Moles/Vol] 131 mmol/L Low 135-145 [facility] Comment on above: Performed By: #### L AB19 ####Typesetter Apprentice: MARY SOTELO ([phone])[facility])[address] [place] [address] [place] Urea nitrogen [Mass/Vol] 30 mg/dL High 7-17 [facility] Comment on above: Performed By: #### L AB19 ####Typesetter Apprentice: MARY SOTELO ([phone])[facility] [place] [address] [place] XR CHEST 1 VIEWon 07-28-2024 XR CHEST 1 VIEW Normal [facility] BASIC METABOLIC PANELon 07-05 Anion gap [Moles/Vol] 6 mmol/L Normal 3-13 [facility] Comment on above: Performed By: #### L AB103, LAB15 ####Typesetter Apprentice: MARY SOTELO ([phone])[facility] ([facility])[address] [place] [address] Calcium [Mass/Vol] 7.3 mg/dL Low 8.4-10.4 [facility] Comment on above: Performed By: #### L AB103, LAB15 ####Typesetter Apprentice: MARY SOTELO ([phone])[facility] ([facility])[address] [place] [address] Chloride [Moles/Vol] 102 mmol/L Normal 98-107 [facility] Comment on above: Performed By: #### L AB103, LAB15 ####Typesetter Apprentice: MARY SOTELO ([phone])[facility] ([facility])[address] [place] [address] CO2 [Moles/Vol] 24 mmol/L Normal 22-30 [facility] Comment on above: Performed By: #### L AB103, LAB15 ####Typesetter Apprentice: MARY SOTELO ([phone])[facility] ([facility])[address] [place] [address] Creatinine [Mass/Vol] 2.18 mg/dL High 0.52-1.04 [facility] Comment on above: Performed By: #### L AB103, LAB15 ####Typesetter Apprentice: MARY SOTELO ([phone])[facility])[address] [place] [address] GLOMERULAR FILTRATION RATE ML/MIN/1.73 SQ M.PREDICTED 24.7 mL/min/1.73m*2 Low >60.0 [facility] Comment on above: Result Comment: Calc ulation based on the Chronic Kidney Disease Epidemiology Collaboration (CKD-EPI) equation refit without adjustment for race Performed By: #### L AB103, LAB15 ####Typesetter Apprentice: MARY SOTELO ([phone])[facility])[address] [place] [address] Glucose [Mass/Vol] 87 mg/dL Normal 70-100 [facility] Comment on above: Performed By: #### L AB103, LAB15 ####Typesetter Apprentice: MARY SOTELO ([phone])[facility] ([facility])[address] [place] [address] Potassium [Moles/Vol] 3.6 mmol/L Normal 3.5-5.1 [facility] Comment on above: Performed By: #### L AB103, LAB15 ####Typesetter Apprentice: MARY SOTELO ([phone])[facility] ([facility])[address] [place] [address] Sodium [Moles/Vol] 131 mmol/L Low 135-145 [facility] Comment on above: Performed By: #### L AB103, LAB15 ####Typesetter Apprentice: MARY SOTELO ([phone])[facility])[address] [place] [address] Urea nitrogen [Mass/Vol] 41 mg/dL High 7-17 [facility] Comment on above: Performed By: #### L AB103, LAB15 ####Typesetter Apprentice: MARY SOTELO ([phone])[facility])[address] [place] [address] BLOOD GAS ARTERIALon 024 Base excess Calc (Bld) [Moles/Vol] 0.4 mmol/L Normal -3.0-3.0 [facility] Comment on above: Performed By: #### L AB76 ####Typesetter Apprentice: MARY SOTELO ([phone])[facility])[address] [place] [address] CO2 [Moles/Vol] 26.5 mmol/L Normal 23.0-27.0 [facility] Comment on above: Performed By: #### L AB76 ####Typesetter Apprentice: MARY SOTELO ([phone])[facility] ([facility])[address] [place] [address] HCO3 (Bld) [Moles/Vol] 25.3 mmol/L High 21.0-25.0 [facility] Comment on above: Performed By: #### L AB76 ####Typesetter Apprentice: MARY SOTELO ([phone])[facility] ([facility])[address] [place] [address] Hemoglobin (Bld) [Mass/Vol] 8.9 g/dL Normal Screen only [facility] Comment on above: Performed By: #### L AB76 ####Typesetter Apprentice: MARY SOTELO ([phone])[facility] ([facility])[address] [place] [address] OXYGEN SATURATION (%) IN ARTERIAL BLOOD 97.1 % Normal 95.0-100.0 [facility] Comment on above: Performed By: #### L AB76 ####Typesetter Apprentice: MARY SOTELO ([phone])[facility] ([facility])[address] [place] [address] PCO2 ARTERIAL 41.9 mm Hg Normal >35.0-<45.0 [facility] Comment on above: Performed By: #### L AB76 ####Typesetter Apprentice: MARY SOTELO ([phone])[facility] ([facility])[address] [place] [address] PH ARTERIAL 7.398 Normal 7.350-7.450 [facility] Comment on above: Performed By: #### L AB76 ####Typesetter Apprentice: MARY SOTELO ([phone])[facility] ([facility])[address] [place] [address] PO2 ARTERIAL 100.1 mm Hg High 80.0-100.0 [facility] Comment on above: Performed By: #### L AB76 ####Typesetter Apprentice: MARY SOTELO ([phone])[facility] ([facility])[address] [place] [address] SOURCE OF OXYGEN 30% Oxygen Normal [facility] Comment on above: Result Comment: vent Performed By: #### L AB76 ####Typesetter Apprentice: MARY SOTELO ([phone])[facility] ([facility])[address] [place] [address] Base excess Calc (Bld) [Moles/Vol] -2.5000 mmol/L Normal -3.0-3.0 [facility] Comment on above: Order Comment: 30 mi n after vent changes Performed By: #### L AB76 ####Typesetter Apprentice: MARY SOTELO ([phone])[facility] ([facility])[address] [place] [address] CO2 [Moles/Vol] 26.0 mmol/L Normal 23.0-27.0 [facility] Comment on above: Order Comment: 30 mi n after vent changes Performed By: #### L AB76 ####Typesetter Apprentice: MARY SOTELO ([phone])[facility] ([facility])[address] [place] [address] HCO3 (Bld) [Moles/Vol] 24.4 mmol/L Normal 21.0-25.0 [facility] Comment on above: Order Comment: 30 mi n after vent changes Performed By: #### L AB76 ####Typesetter Apprentice: MARY SOTELO ([phone])[facility] ([facility])[address] [place] [address] Hemoglobin (Bld) [Mass/Vol] 9.3 g/dL Normal Screen only [facility] Comment on above: Order Comment: 30 mi n after vent changes Performed By: #### L AB76 ####Typesetter Apprentice: MARY SOTELO ([phone])[facility] ([facility])[address] [place] [address] OXYGEN SATURATION (%) IN ARTERIAL BLOOD 97.1 % Normal 95.0-100.0 [facility] Comment on above: Order Comment: 30 mi n after vent changes Performed By: #### L AB76 ####Typesetter Apprentice: MARY SOTELO ([phone])[facility] ([facility])[address] [place] [address] PCO2 ARTERIAL 52.3 mm Hg High >35.0-<45.0 [facility] Comment on above: Order Comment: 30 mi n after vent changes Performed By: #### L AB76 ####Typesetter Apprentice: MARY SOTELO ([phone])[facility] ([facility])[address] [place] [address] PH ARTERIAL 7.286 Low 7.350-7.450 [facility] Comment on above: Order Comment: 30 mi n after vent changes Performed By: #### L AB76 ####Typesetter Apprentice: MARY SOTELO ([phone])[facility] ([facility])[address] [place] [address] PO2 ARTERIAL 115.1 mm Hg High 80.0-100.0 [facility] Comment on above: Order Comment: 30 mi n after vent changes Performed By: #### L AB76 ####Typesetter Apprentice: MARY SOTELO ([phone])[facility] ([facility])[address] [place] [address] SOURCE OF OXYGEN 30% Oxygen Normal [facility] Comment on above: Order Comment: 30 mi n after vent changes Result Comment: vent Performed By: #### L AB76 ####Typesetter Apprentice: MARY SOTELO ([phone])[facility] ([facility])[address] [place] [address] Base excess Calc (Bld) [Moles/Vol] -6.7000 mmol/L Low -3.0-3.0 [facility] Comment on above: Performed By: #### L AB76 ####Typesetter Apprentice: MARY SOTELO ([phone])[facility] ([facility])[address] [place] [address] CO2 [Moles/Vol] 22.8 mmol/L Low 23.0-27.0 [facility] Comment on above: Performed By: #### L AB76 ####Typesetter Apprentice: MARY SOTELO ([phone])[facility] ([facility])[address] [place] [address] HCO3 (Bld) [Moles/Vol] 21.1 mmol/L Normal 21.0-25.0 [facility] Comment on above: Performed By: #### L AB76 ####Typesetter Apprentice: MARY SOTELO ([phone])[facility] ([facility])[address] [place] [address] Hemoglobin (Bld) [Mass/Vol] 9.9 g/dL Normal Screen only [facility] Comment on above: Performed By: #### L AB76 ####Typesetter Apprentice: MARY SOTELO ([phone])[facility] ([facility])[address] [place] [address] OXYGEN SATURATION (%) IN ARTERIAL BLOOD 96.9 % Normal 95.0-100.0 [facility] Comment on above: Performed By: #### L AB76 ####Typesetter Apprentice: MARY SOTELO ([phone])[facility] ([facility])[address] [place] [address] PCO2 ARTERIAL 53.5 mm Hg High >35.0-<45.0 [facility] Comment on above: Performed By: #### L AB76 ####Typesetter Apprentice: MARY SOTELO ([phone])[facility] ([facility])[address] [place] [address] PH ARTERIAL 7.214 Low 7.350-7.450 [facility] Comment on above: Performed By: #### L AB76 ####Typesetter Apprentice: MARY SOTELO ([phone])[facility] ([facility])[address] [place] [address] PO2 ARTERIAL 108.9 mm Hg High 80.0-100.0 [facility] Comment on above: Performed By: #### L AB76 ####Typesetter Apprentice: MARY SOTELO ([phone])[facility] ([facility])[address] [place] [address] SOURCE OF OXYGEN Vent Normal [facility] Comment on above: Performed By: #### L AB76 ####Typesetter Apprentice: MARY SOTELO ([phone])[facility] ([facility])[address] [place] [address] [place] C3, BLOODon 07-27-2024 C3, BLOOD 56 mg/dL Low 88-165 [facility] Comment on above: Performed By: #### L [id number], [id number] ####Typesetter Apprentice: MARLENY GUZMÁN ([phone])[facility] ([facility])[address] [place] [address] [place] C4 COMPLEMENTon 07-27-2024 C4, BLOOD 10 mg/dL Low 14-44 [facility] Comment on above: Performed By: #### L AB152, [id number] ####Typesetter Apprentice: MARLENY GUZMÁN ([phone])[facility] ([facility])[address] [place] [address] CALCIUM, IONIZEDon 4 CALCIUM IONIZED 4.00 mg/dL Low 4.30-5.20 [facility] Comment on above: Performed By: #### L AB54 ####Typesetter Apprentice: MARY SOTELO ([phone])[facility] [place] [address] [place] PH, IONIZED CALCIUM 7.50 High 7.31-7.46 [facility] Comment on above: Performed By: #### L AB54 ####Typesetter Apprentice: MARY SOTELO ([phone])[facility] [place] [address] [place] CALCIUM IONIZED 4.20 mg/dL Low 4.30-5.20 [facility] Comment on above: Performed By: #### L AB54 ####Typesetter Apprentice: MARY SOTELO ([phone])[facility] ([facility])[address] [place] [address] [place] PH, IONIZED CALCIUM 7.32 Normal 7.31-7.46 [facility] Comment on above: Performed By: #### L AB54 ####Typesetter Apprentice: MARY SOTELO ([phone])[facility] ([facility])[address] [place] [address] [place] CALCIUM IONIZED 3.70 mg/dL Low 4.30-5.20 [facility] Comment on above: Performed By: #### L AB54 ####Typesetter Apprentice: MARY SOTELO ([phone])[facility])[address] [place] [address] PH, IONIZED CALCIUM 7.22 Low 7.31-7.46 [facility] Comment on above: Performed By: #### L AB54 ####Typesetter Apprentice: MARY SOTELO ([phone])[facility])[address] [place] [address] CARECOORDon 07-27-2024 CARECOORD Normal [facility] CBC WITH AUTO DIFFERENTIALon 07-27-2024 Erythrocyte distribution width (RBC) [Ratio] 15.3 % High 11.5-15.0 [facility] Comment on above: Performed By: #### L [id number], [id number] ####Typesetter Apprentice: MARY SOTELO ([phone])[facility])[address] [place] [address] Hematocrit (Bld) [Volume fraction] 27.2 % Low 35.0-47.0 [facility] Comment on above: Performed By: #### L [id number], [id number] ####Typesetter Apprentice: MARY SOTELO ([phone])[address] Hemoglobin (Bld) [Mass/Vol] 8.8 g/dL Low 11.7-16.0 [facility] Comment on above: Performed By: #### L [id number], [id number] ####Typesetter Apprentice: MARY SOTELO ([phone])[address] MCH (RBC) [Entitic mass] 28.5 pg Normal 26.0-34.0 [facility] Comment on above: Performed By: #### L [id number], [id number] ####Typesetter Apprentice: MARY [phone])[facility] ([facility])[address] [place] [address] MCHC 32.4 % Normal 30.5-36.0 [facility] Comment on above: Performed By: #### L [id number], [id number] ####Typesetter Apprentice: MARY SOTELO ([phone])[facility])[address] [place] [address] MCV (RBC) [Entitic vol] 88.0 fL Normal 77.0-99.0 [facility] Comment on above: Performed By: #### L [id number], [id number] ####Typesetter Apprentice: MARY SOTELO ([phone])[facility])[address] [place] [address] Platelet mean volume (Bld) [Entitic vol] 10.4 fL Normal 9.0-12.7 [facility] Comment on above: Performed By: #### L [id number], [id number] ####Typesetter Apprentice: MARY SOTELO ([phone])[facility])[address] [place] [address] Platelets (Bld) [#/Vol] 186 10*3/uL Normal 140-440 [facility] Comment on above: Performed By: #### L [id number], [id number] ####Typesetter Apprentice: MARY SOTELO ([phone])[facility])[address] [place] [address] RBC (Bld) [#/Vol] 3.09 10*6/uL Low 3.80-5.20 [facility] Comment on above: Performed By: #### L [id number], [id number] ####Typesetter Apprentice: MARY SOTELO ([phone])[facility])[address] [place] [address] WBC (Bld) [#/Vol] 14.5 10*3/uL High 3.6-10.7 [facility] Comment on above: Performed By: #### L [id number], [id number] ####Typesetter Apprentice: MARY [phone])[facility] ([facility])[address] [place] [address] [place] CKon 07-27-2024 CK [Catalytic activity/Vol] 865 U/L High 30-170 [facility] Comment on above: Performed By: #### L AB62, LAB17, [id number], [id number] ####Typesetter Apprentice: MARY SOTELO ([phone])[facility] ([facility])[address] [place] [address] COMPREHENSIVE METABOLIC PANE [place] 07-27-2024 Albumin [Mass/Vol] 2.4 g/dL Low 3.5-5.0 [facility] Comment on above: Performed By: #### L AB62, LAB17, [id number], [id number] ####Typesetter Apprentice: MARY SOTELO ([phone])[facility] ([facility])[address] [place] [address] ALP [Catalytic activity/Vol] 66 U/L Normal 38-126 [facility] Comment on above: Performed By: #### L AB62, LAB17, [id number], [id number] ####Typesetter Apprentice: MARY SOTELO ([phone])[facility] ([facility])[address] [place] [address] ALT [Catalytic activity/Vol] 19 U/L Normal 0-34 [facility] Comment on above: Performed By: #### L AB62, LAB17, [id number], [id number] ####Typesetter Apprentice: MARY SOTELO ([phone])[facility] ([facility])[address] [place] [address] Anion gap [Moles/Vol] 11 mmol/L Normal 3-13 [facility] Comment on above: Performed By: #### L AB62, LAB17, [id number], [id number] ####Typesetter Apprentice: MARY SOTELO ([phone])[facility])[address] [place] [address] AST [Catalytic activity/Vol] 28 U/L Normal 15-46 [facility] Comment on above: Performed By: #### L AB62, LAB17, [id number], [id number] ####Typesetter Apprentice: MARY SOTELO ([phone])[facility] [place] [address] Bilirubin [Mass/Vol] 0.3 mg/dL Normal 0.2-1.3 [facility] Comment on above: Performed By: #### L AB62, LAB17, EMC938, [id number] ####Typesetter Apprentice: MARY SOTELO ([phone])[facility] [place] [address] Calcium [Mass/Vol] 6.5 mg/dL Low 8.4-10.4 [facility] Comment on above: Performed By: #### L AB62, LAB17, [id number], [id number] ####Typesetter Apprentice: MARY SOTELO ([phone])[facility] [place] [address] Chloride [Moles/Vol] 101 mmol/L Normal 98-107 [facility] Comment on above: Performed By: #### L AB62, LAB17, QYB873, [id number] ####Typesetter Apprentice: MARY SOTELO ([phone])[facility] ([facility])[address] [place] [address] CO2 [Moles/Vol] 18 mmol/L Low 22-30 [facility] Comment on above: Performed By: #### L AB62, LAB17, VYX851, [id number] ####Typesetter Apprentice: MARY SOTELO ([phone])[facility] ([facility])[address] [place] [address] Creatinine [Mass/Vol] 4.00 mg/dL High 0.52-1.04 [facility] Comment on above: Performed By: #### L AB62, LAB17, SRB049, [id number] ####Typesetter Apprentice: MARY SOTELO ([phone])[facility])[address] [place] [address] GLOMERULAR FILTRATION RATE ML/MIN/1.73 SQ M.PREDICTED 11.9 mL/min/1.73m*2 Low >60.0 [facility] Comment on above: Result Comment: Calc ulation based on the Chronic Kidney Disease Epidemiology Collaboration (CKD-EPI) equation refit without adjustment for race Performed By: #### L AB62, LAB17, SOA171, [id number] ####Typesetter Apprentice: MARY SOTELO ([phone])[facility])[address] [place] [address] Glucose [Mass/Vol] 254 mg/dL High 70-100 [facility] Comment on above: Performed By: #### L AB62, LAB17, CCV036, [id number] ####Typesetter Apprentice: MARY SOTELO ([phone])[facility])[address] [place] [address] Potassium [Moles/Vol] 4.3 mmol/L Normal 3.5-5.1 [facility] Comment on above: Performed By: #### Dora AB62, LAB17, QQS350, GAL181 ####Typesetter Apprentice: MARY SOTELO ([phone])[facility])[address] [place] [address] Protein [Mass/Vol] 4.9 g/dL Low 6.3-8.2 [facility] Comment on above: Performed By: #### Dora AB62, LAB17, [id number], [id number] ####Typesetter Apprentice: MARY SOTELO ([phone])[facility])[address] [place] [address] Sodium [Moles/Vol] 130 mmol/L Low 135-145 [facility] Comment on above: Performed By: #### L AB62, LAB17, [id number], [id number] ####Typesetter Apprentice: MARY SOTELO ([phone])[facility])[address] [place] [address] Urea nitrogen [Mass/Vol] 66 mg/dL High 7-17 [facility] Comment on above: Performed By: #### L AB62, LAB17, CZR815, SVA003 ####Typesetter Apprentice: MARY SOTELO ([phone])[facility])[address] [place] [address] [place] Consulton 07-27-2024 Consult Normal [facility] Consult Normal [facility] Consult Normal [facility] ECG 12-LEADon 07-27-2024 ECG 12-LEAD IMPRESSION: Sinus rhythm Short LA interval Left anterior fascicular block Anteroseptal infarct, age indeterminate Nonspecific T abnormalities, lateral leads Electronically Signed On 07-27-2024 07:43:40 EDT by Mira Byrd Normal [facility] FREE T4on 07-27-2024 Free T4 [Mass/Vol] 1.67 ng/dL Normal 0.78-2.19 [facility] Comment on above: Performed By: #### L [id number] ####Typesetter Apprentice: MARY SOTELO ([phone])[facility])[address] [place] [address] HEPATITIS B SURFACE ANTIBODY on 07-27-2024 HEPATITIS B VIRUS SURFACE AB <8.0 Normal [facility] Comment on above: Result Comment: REMIE R COMMENTS:Interpretation:<8.0 Non-Reactive8.0-11.9 Equivocal>= 12.0 Ab DetectedNote: If an equivocal result is interpreted, an antibody status is unable to be determined. Collect new specimen if clinically indicated. Performed By: #### L [id number], [id number] ####Typesetter Apprentice: MARY SOTELO ([phone])[facility])[address] [place] [address] HEPATITIS B SURFACE ANTIGENo n 07-27-2024 HEPATITIS B VIRUS SURFACE AG Not detected Normal Not Detected [facility] Comment on above: Performed By: #### L AB471, [id number] ####Typesetter Apprentice: MARY SOTELO ([phone])[facility])[address] [place] [address] [place] MAGNESIUMon 07-27-2024 Magnesium [Mass/Vol] 1.9 mg/dL Normal 1.6-2.3 [facility] Comment on above: Performed By: #### L AB103, LAB15 ####Typesetter Apprentice: MARY SOTELO ([phone])[facility])[address] [place] [address] [place] Magnesium [Mass/Vol] 2.0 mg/dL Normal 1.6-2.3 [facility] Comment on above: Performed By: #### L AB62, LAB17, [id number], [id number] ####Typesetter Apprentice: MARY SOTELO ([phone])[facility] ([facility])[address] [place] [address] MANUAL DIFFERENTIAL (CELLAVI ESPINOZA)on 07-27-2024 ANISOCYTOSIS PRESENCE IN BLOOD BY LIGHT MICROSCOPY Slight Abnormal (none) [facility] Comment on above: Performed By: #### L [id number], [id number] ####Typesetter Apprentice: MARY SOTELO ([phone])[facility] ([facility])[address] [place] [address] BAND NEUTROPHILS TOTAL PER COUNTED LEUKOCYTES BY MANUAL COUNT Normal [facility] Comment on above: Performed By: #### L [id number], [id number] ####Typesetter Apprentice: MARY SOTELO ([phone])[facility] ([facility])[address] [place] [address] BASOPHILIC STIPPLING PRESENCE IN BLOOD BY LIGHT MICROSCOPY Rare Abnormal (none) [facility] Comment on above: Performed By: #### L [id number], [id number] ####Typesetter Apprentice: MARY SOTELO ([phone])[facility] ([facility])[address] [place] [address] [place] BASOPHILS TOTAL PER COUNTED LEUKOCYTES BY MANUAL COUNT Normal [facility] Comment on above: Performed By: #### L [id number], [id number] ####Typesetter Apprentice: MARY SOTELO ([phone])[facility] ([facility])[address] [place] [address] [place] BLASTS TOTAL PER COUNTED LEUKOCYTES BY MANUAL COUNT Normal [facility] Comment on above: Performed By: #### L [id number], [id number] ####Typesetter Apprentice: MARY SOTELO ([phone])[facility] ([facility])[address] [place] [address] [place] EOSINOPHILS TOTAL PER COUNTED LEUKOCYTES BY MANUAL COUNT Normal [facility] Comment on above: Performed By: #### L [id number], [id number] ####Typesetter Apprentice: MARY SOTELO ([phone])[facility] ([facility])[address] [place] [address] LYMPHOCYTE VARIANT/100 LEUKOCYTES IN BLOOD- CELLAVISION 1 % High <=0 [facility] Comment on above: Performed By: #### L [id number], [id number] ####Typesetter Apprentice: MARY SOTELO ([phone])[facility] ([facility])[address] [place] [address] [place] LYMPHOCYTES (10*3/UL) IN BLOOD-CELLAVISION 0.7 10*3/uL Low 1.0-4.3 [facility] Comment on above: Performed By: #### L [id number], [id number] ####Typesetter Apprentice: MARY SOTELO ([phone])[facility] ([facility])[address] [place] [address] LYMPHOCYTES TOTAL PER COUNTED LEUKOCYTES BY MANUAL COUNT 5 Normal [facility] Comment on above: Performed By: #### L [id number], [id number] ####Typesetter Apprentice: MARY SOTELO ([phone])[facility] ([facility])[address] [place] [address] [place] LYMPHOCYTES/100 LEUKOCYTES IN BLOOD-CELLAVISION 5 % Low 15-45 [facility] Comment on above: Performed By: #### L [id number], [id number] ####Typesetter Apprentice: MARY SOTELO ([phone])[facility])[address] [place] [address] MACROCYTES (PRESENCE) IN BLOOD BY LIGHT MICROSCOPY Slight Abnormal (none) [facility] Comment on above: Performed By: #### L [id number], [id number] ####Typesetter Apprentice: MARY SOTELO ([phone])[facility])[address] [place] [address] METAMYELOCYTES TOTAL PER COUNTED LEUKOCYTES BY MANUAL COUNT Normal [facility] Comment on above: Performed By: #### L [id number], [id number] ####Typesetter Apprentice: MARY SOTELO ([phone])[facility] ([facility])[address] [place] [address] [place] MICROCYTES (PRESENCE) IN BLOOD BY LIGHT MICROSCOPY Slight Abnormal (none) [facility] Comment on above: Performed By: #### L [id number], [id number] ####Typesetter Apprentice: MARY SOTELO ([phone])[facility] [place] [address] [place] MONOCYTES (10*3/UL) IN BLOOD-CELLAVISION 0.7 10*3/uL Normal 0.0-0.9 [facility] Comment on above: Performed By: #### L [id number], [id number] ####Typesetter Apprentice: MARY SOTELO ([phone])[facility] ([facility])[address] [place] [address] [place] MONOCYTES TOTAL PER COUNTED LEUKOCYTES BY MANUAL COUNT 5 Normal [facility] Comment on above: Performed By: #### L [id number], [id number] ####Typesetter Apprentice: MARY SOTELO ([phone])[facility] [place] [address] [place] MONOCYTES/100 LEUKOCYTES IN BLOOD-KACEY 5 % Normal 5-13 [facility] Comment on above: Performed By: #### L [id number], [id number] ####Typesetter Apprentice: MARY SOTELO ([phone])[facility] ([facility])[address] [place] [address] [place] MYELOCYTES COUNTED BY MANUAL COUNT Normal [facility] Comment on above: Performed By: #### L [id number], [id number] ####Typesetter Apprentice: MARY SOTELO ([phone])[facility] ([facility])[address] [place] [address] [place] NEUTROPHILS TOTAL PER COUNTED LEUKOCYTES BY MANUAL COUNT 90 Normal [facility] Comment on above: Performed By: #### L [id number], [id number] ####Typesetter Apprentice: MARY SOTELO ([phone])[facility] [place] [address] [place] OVALOCYTES PRESENCE IN BLOOD BY LIGHT MICROSCOPY Slight Abnormal (none) [facility] Comment on above: Performed By: #### L [id number], [id number] ####Typesetter Apprentice: MARY SOTELO ([phone])[facility])[address] [place] [address] POIKILOCYTOSIS (PRESENCE) IN BLOOD BY LIGHT MICROSCOPY Slight Abnormal (none) [facility] Comment on above: Performed By: #### L [id number], [id number] ####Typesetter Apprentice: MARY SOTELO ([phone])[facility] ([facility])[address] [place] [address] POLYCHROMASIA IN BLOOD BY LIGHT MICROSCOPY Slight Abnormal (none) [facility] Comment on above: Performed By: #### L [id number], [id number] ####Typesetter Apprentice: MARY SOTELO ([phone])[facility])[address] [place] [address] PROMYELOCYTES TOTAL PER COUNTED LEUKOCYTES BY MANUAL COUNT Normal [facility] Comment on above: Performed By: #### L [id number], [id number] ####Typesetter Apprentice: MARY SOTELO ([phone])[facility])[address] [place] [address] RBC MORPHOLOGY IN BLOOD abnormal Normal [facility] Comment on above: Performed By: #### L [id number], [id number] ####Typesetter Apprentice: MARY SOTELO ([phone])[facility])[address] [place] [address] SEGMENTED NEUTROPHILS (10*3/UL) IN BLOOD-CELLAVISION 12.9 10*3/uL High 1.8-7.5 [facility] Comment on above: Performed By: #### L [id number], [id number] ####Typesetter Apprentice: MARY SOTELO ([phone])[facility])[address] [place] [address] SEGMENTED NEUTROPHILS/100 LEUKOCYTES-CE 89 % High 38-82 [facility] Comment on above: Performed By: #### L [id number], [id number] ####Typesetter Apprentice: MARY SOTELO ([phone])[facility] ([facility])[address] [place] [address] UNCLASSIFIED CELLS TOTAL PER COUNTED LEUKOCYTES BY MANUAL COUNT Normal [facility] Comment on above: Performed By: #### L [id number], [id number] ####Typesetter Apprentice: MARY SOTELO ([phone])[facility])[address] [place] [address] VARIANT LYMPHOCYTES (10*3/UL) IN BLOOD-CELLAVISION 0.1 10*3/uL High <=0.0 [facility] Comment on above: Performed By: #### L [id number], [id number] ####Typesetter Apprentice: MARY SOTELO ([phone])[facility] ([facility])[address] [place] [address] VARIANT LYMPHOCYTES TOTAL PER COUNTED LEUKOCYTES BY MANUAL COUNT 1 Normal [facility] Comment on above: Performed By: #### L [id number], [id number] ####Typesetter Apprentice: MARY SOTELO ([phone])[facility] ([facility])[address] [place] [address] PHOSPHORUSon 07-27-2024 Phosphate [Mass/Vol] 6.8 mg/dL High 2.5-4.5 [facility] Comment on above: Performed By: #### L [id number], [id number], [id number], [id number] ####Typesetter Apprentice: MARY SOTELO ([phone])[facility])[address] [place] [address] PNEUMONIA PCR PANELon 2023 PNEUMONIA PCR PANEL Normal [facility] Comment on above: Performed By: #### L [id number] ####Typesetter Apprentice: MARY SOTELO ([phone])[facility])[address] [place] [address] Progress Noteon 07-27-2024 Progress Note Normal [facility] Progress Note Normal [facility] Progress Note OCCUPATIONAL THERAPY [facility] Name/MRN: Sandy Deng ([id number]) Date: 07/27/2024 Intubated, sedated, on bed rest. Will follow. Delmar Ling, OT Normal [facility] Progress Note PHYSICAL THERAPY [facility] Name/MRN: Sandy Deng ([id number]) Date: 07/27/2024 Screen Note. Pt remains intubated and sedated, and on strict bed rest orders. Will continue to follow and re-attempt as able. Jennifer Saldaña, SPT Normal [facility] Progress Note Normal [facility] Progress Note Normal [facility] Progress Note Normal [facility] RENAL FUNCTION PANELon 07-27 Albumin [Mass/Vol] 2.4 g/dL Low 3.5-5.0 [facility] Comment on above: Performed By: #### L [id number] ####Typesetter Apprentice: MARY SOTELO ([phone])[facility])[address] [place] [address] Anion gap [Moles/Vol] 4 mmol/L Normal 3-13 [facility] Comment on above: Performed By: #### L [id number] ####Typesetter Apprentice: MARY SOTELO ([phone])[facility])[address] [place] [address] Calcium [Mass/Vol] 7.5 mg/dL Low 8.4-10.4 [facility] Comment on above: Performed By: #### L [id number] ####Typesetter Apprentice: MARY SOTELO ([phone])[facility])[address] [place] [address] Chloride [Moles/Vol] 102 mmol/L Normal 98-107 [facility] Comment on above: Performed By: #### L [id number] ####Typesetter Apprentice: MARY SOTELO ([phone])[facility])[address] [place] [address] CO2 [Moles/Vol] 25 mmol/L Normal 22-30 [facility] Comment on above: Performed By: #### L [id number] ####Typesetter Apprentice: MARY SOTELO ([phone])[facility] [place] [address] [place] Creatinine [Mass/Vol] 2.81 mg/dL High 0.52-1.04 [facility] Comment on above: Performed By: #### L [id number] ####Typesetter Apprentice: MARY SOTELO ([phone])[facility] [place] [address] [place] GLOMERULAR FILTRATION RATE ML/MIN/1.73 SQ M.PREDICTED 18.2 mL/min/1.73m*2 Low >60.0 [facility] Comment on above: Result Comment: Calc ulation based on the Chronic Kidney Disease Epidemiology Collaboration (CKD-EPI) equation refit without adjustment for race Performed By: #### L [id number] ####Typesetter Apprentice: MARY SOTELO ([phone])[facility] [place] [address] Glucose [Mass/Vol] 83 mg/dL Normal 70-100 [facility] Comment on above: Performed By: #### L [id number] ####Typesetter Apprentice: MARY SOTELO ([phone])[facility] [place] [address] [place] Phosphate [Mass/Vol] 4.6 mg/dL High 2.5-4.5 [facility] Comment on above: Performed By: #### L [id number] ####Typesetter Apprentice: MARY SOTELO ([phone])[facility] [place] [address] [place] Potassium [Moles/Vol] 3.6 mmol/L Normal 3.5-5.1 [facility] Comment on above: Performed By: #### L [id number] ####Typesetter Apprentice: MARY SOTELO ([phone])[facility] ([facility])[address] [place] [address] [place] Sodium [Moles/Vol] 131 mmol/L Low 135-145 [facility] Comment on above: Performed By: #### L [id number] ####Typesetter Apprentice: MARY SOTELO ([phone])[facility] ([facility])[address] [place] [address] [place] Urea nitrogen [Mass/Vol] 49 mg/dL High 7-17 [facility] Comment on above: Performed By: #### L [id number] ####Typesetter Apprentice: MARY SOTELO ([phone])[facility] [place] [address] [place] RESPIRATORY CULTURE AND STAI Non 07-27-2024 RESPIRATORY CULTURE AND STAIN Normal [facility] Comment on above: Performed By: #### L [id number] ####Typesetter Apprentice: MARY SOTELO ([phone])[facility] ([facility])[address] [place] [address] RESPIRATORY PATHOGENS PANEL BY PCRon 07-27-2024 RESPIRATORY PATHOGENS PANEL BY PCR Normal [facility] Comment on above: Performed By: #### L [id number] ####Typesetter Apprentice: MARY SOTELO ([phone])[facility] [place] [address] Renal Profileon 07-27-2024 ALB Normal 3.2-5.0 [facility] Comment on above: Result Comment: Canc elled via OM: Order cancelled - Patient discharged Performed By: #### L 500.3600 ####[facility] [address] [facility] [address] BUN Normal 7-18 [facility] Comment on above: Result Comment: Canc elled via OM: Order cancelled - Patient discharged Performed By: #### L 500.3600 ####[facility] [address] [facility] [address] BUN/CRE Normal 10-20 [facility] Comment on above: Result Comment: Canc elled via OM: Order cancelled - Patient discharged Performed By: #### L 500.3600 ####[facility] [address] [place], [address] CA,Total Normal 8.5-10.1 [facility] Comment on above: Result Comment: Canc elled via OM: Order cancelled - Patient discharged Performed By: #### L 500.3600 ####[facility] [address] [place], [address] CL Normal 98-107 [facility] Comment on above: Result Comment: Canc elled via OM: Order cancelled - Patient discharged Performed By: #### L 500.3600 ####[facility] [address] [place], [address] CO2 Normal 21.0-32.0 [facility] Comment on above: Result Comment: Canc elled via OM: Order cancelled - Patient discharged Performed By: #### L 500.3600 ####[facility] [address] [place], [address] CREAT,SERUM Normal 0.55-1.02 [facility] Comment on above: Result Comment: Canc elled via OM: Order cancelled - Patient discharged Performed By: #### L 500.3600 ####[facility] [address] [place], [address] EST GFR Normal >60 [facility] Comment on above: Result Comment: Canc elled via OM: Order cancelled - Patient discharged Performed By: #### L 500.3600 ####[facility] [address] [place], [address] EST GFR - AA Normal >60 [facility] Comment on above: Result Comment: Canc elled via OM: Order cancelled - Patient discharged Performed By: #### L 500.3600 ####[facility] [address] [place], [address] GLU Normal 74-106 [facility] Comment on above: Result Comment: Canc elled via OM: Order cancelled - Patient discharged Performed By: #### L 500.3600 ####[facility] [address] [place], [address] PHOS Normal 2.5-4.9 [facility] Comment on above: Result Comment: Canc elled via OM: Order cancelled - Patient discharged Performed By: #### L 500.3600 ####[facility] [address] [place], [address] Potassium Normal 3.5-5.1 [facility] Comment on above: Result Comment: Canc elled via OM: Order cancelled - Patient discharged Performed By: #### L 500.3600 ####[facility] [address] [place], [address] Renal Profile Normal 136-145 [facility] Comment on above: Result Comment: Canc elled via OM: Order cancelled - Patient discharged Performed By: #### L 500.3600 ####[facility] [address] [place], [address] TROPONIN Ion 07-27-2024 Troponin I.cardiac [Mass/Vol] 0.017 ng/mL Normal <0.034 [facility] Comment on above: Result Comment: BINA Olivarez COMMENTS:Patients with high levels of Biotin oral intake (ie >5 mg/day) may have falsely decreased Troponin levels. Performed By: #### L [id number] ####Typesetter Apprentice: MARY SOTELO ([phone])[facility] ([address] US RETROPERITONEUM LIMITEDon 07-27-2024 US RETROPERITONEUM LIMITED Normal [facility] Vitamin D 1,25-Dihydroxyon 0 07-27-2024 VIT D 1,25 DIHY 41.6 pg/mL Normal 24.8-81.5 [facility] Comment on above: Result Comment: Perf ormed at: - [facility] [id number] Director: Rico Lord MD, Phone: [phone] Performed By: #### L 501.9985, L506.1000, L100.0100, L500.4050, L509.1000, L3300.0960 ####[facility] [address] [place], [address] Abdomen Single View (Portabl e)on 07-26-2024 Abdomen Single View (Portable) Normal [facility] BLOOD GAS ARTERIALon 024 Base excess Calc (Bld) [Moles/Vol] -16.85665 mmol/L Low -3.0-3.0 [facility] Comment on above: Performed By: #### L AB76 ####Typesetter Apprentice: MARY SOTELO ([phone])[facility] ([facility])[address] [place] [address] CO2 [Moles/Vol] 11.7 mmol/L Low 23.0-27.0 [facility] Comment on above: Performed By: #### L AB76 ####Typesetter Apprentice: MARY SOTELO ([phone])[facility] ([facility])[address] [place] [address] HCO3 (Bld) [Moles/Vol] 10.7 mmol/L Low 21.0-25.0 [facility] Comment on above: Performed By: #### L AB76 ####Typesetter Apprentice: MRAY SOTELO ([phone])[facility] ([facility])[address] [place] [address] Hemoglobin (Bld) [Mass/Vol] 8.1 g/dL Normal Screen only [facility] Comment on above: Performed By: #### L AB76 ####Typesetter Apprentice: MARY SOTELO ([phone])[facility] ([facility])[address] [place] [address] OXYGEN SATURATION (%) IN ARTERIAL BLOOD 94.9 % Low 95.0-100.0 [facility] Comment on above: Performed By: #### L AB76 ####Typesetter Apprentice: MARY SOTELO ([phone])[facility] ([facility])[address] [place] [address] PCO2 ARTERIAL 30.4 mm Hg Low >35.0-<45.0 [facility] Comment on above: Performed By: #### L AB76 ####Typesetter Apprentice: MARY SOTELO ([phone])[facility] ([facility])[address] [place] [address] PH ARTERIAL 7.166 Critically low 7.350-7.450 [employer] [facility] Comment on above: Performed By: #### L AB76 ####Typesetter Apprentice: MARY SOTELO ([phone])[facility] ([facility])[address] [place] [address] PO2 ARTERIAL 95.4 mm Hg Normal 80.0-100.0 [facility] Comment on above: Performed By: #### L AB76 ####Typesetter Apprentice: MARY SOTELO ([phone])[facility] ([facility])[address] [place] [address] SOURCE OF OXYGEN Vent Normal [facility] Comment on above: Performed By: #### L AB76 ####Typesetter Apprentice: MARY SOTELO ([phone])[facility] [place] [address] Bedside Glucoseon 07-26-2024 FINGERSTICK GLU 290 mg/dL High 74-106 [facility] Comment on above: Result Comment: SHELLY GEMENT OF PATIENT CARE PER NURSING PROTOCOL Performed By: #### L 501.080 ####[facility] [address] [place] [address] FINGERSTICK GLU 224 mg/dL High 74-106 [facility] Comment on above: Result Comment: SHELLY GEMENT OF PATIENT CARE PER NURSING PROTOCOL Performed By: #### L 501.080 ####[facility] [address] [facility] [address] FINGERSTICK GLU 193 mg/dL High 74-106 [facility] Comment on above: Result Comment: SHELLY GEMENT OF PATIENT CARE PER NURSING PROTOCOL Performed By: #### L 501.080 ####[facility] [address] [facility] [address] Blood G[facility] Base excess Calc (Bld) [Moles/Vol] -15 mmol/L Low -2 to +2 [facility] Comment on above: Performed By: #### L 9000.0800 ####[facility] [address] [place], [address] Blood Gas Type ART [facility] Comment on above: Performed By: #### L 9000.0800 ####[facility] [address] [place], [address] CO2 [Moles/Vol] 18 mmol/L Normal [facility] Comment on above: Performed By: #### L 9000.0800 ####[facility] [address] [place], [address] FI02 50.0 [facility] Comment on above: Performed By: #### L 9000.0800 ####[facility] [address] [place], [address] HCO3 (Bld) [Moles/Vol] 16.3 mmol/L Low 22-26 [facility] Comment on above: Performed By: #### L 9000.0800 ####[facility] [address] [place], [address] Mode AC Normal [facility] Comment on above: Performed By: #### L 9000.0800 ####[facility] [address] [place], [address] O2 Delivery Dev Not entered Normal [facility] Comment on above: Performed By: #### L 9000.0800 ####[facility] [address] [place], [address] pCO2 64.6 mmHg High 35-45 [facility] Comment on above: Performed By: #### L 9000.0800 ####[facility] [address] [place], [address] PEEP 5 Normal [facility] Comment on above: Performed By: #### L 9000.0800 ####[facility] [address] [place], [address] pH (Bld) 7.01 [pH] Invalid Interpretation Code 7.35-7.45 [facility] Comment on above: Performed By: #### L 9000.0800 ####[facility] [address] [place], [address] PO2 127 mmHG High 75-100 [facility] Comment on above: Performed By: #### L 9000.0800 ####[facility] [address] [place], [address] Read Back By Yes [facility] Comment on above: Performed By: #### L 9000.0800 ####[facility] [address] [place], [address] Results To brown Normal [facility] Comment on above: Performed By: #### L 9000.0800 ####[facility] [address] [place], [address] RR 16 Normal [facility] Comment on above: Performed By: #### L 9000.0800 ####[facility] [address] [place], [address] SITE R Brach Normal [facility] Comment on above: Performed By: #### L 9000.0800 ####[facility] [address] [place], [address] SO2 96 Normal 95-99 [facility] Comment on above: Performed By: #### L 9000.0800 ####[facility] [address] [place], [address] Time Given 12:36:55 [facility] Comment on above: Performed By: #### L 9000.0800 ####[facility] [address] [place], [address] Vt 400.0 mL Normal [facility] Comment on above: Performed By: #### L 0.0800 ####[facility] [address] [place], [address] Base excess Calc (Bld) [Moles/Vol] -11 mmol/L Low -2 to +2 [facility] Comment on above: Performed By: #### L 8999.0800 ####[facility] [address] [place], [address] Blood Gas Type ART Normal [facility] Comment on above: Performed By: #### L 8999.0800 ####[facility] [address] [place], [address] CO2 [Moles/Vol] 23 mmol/L Normal [facility] Comment on above: Performed By: #### L 8999.0800 ####[facility] [address] [place], [address] FI02 4.0 Normal [facility] Comment on above: Performed By: #### L 8999.0800 ####[facility] [address] [place], [address] HCO3 (Bld) [Moles/Vol] 20.1 mmol/L Low 22-26 [facility] Comment on above: Performed By: #### L 0.0800 ####[facility] [address] [place], [address] Mode Not entered [facility] Comment on above: Performed By: #### L 8999.0800 ####[facility] [address] [place], [address] O2 Delivery Dev Not entered [facility] Comment on above: Performed By: #### L 8999.0800 ####[facility] [address] [place], [address] pCO2 82.1 mmHg Invalid Interpretation Code 35-45 [facility] Comment on above: Performed By: #### L 9000.0800 ####[facility] [address] [place], [address] pH (Bld) 7.00 [pH] Invalid Interpretation Code 7.35-7.45 [facility] Comment on above: Performed By: #### L 9000.0800 ####[facility] [address] [place], [address] PO2 119 mmHG High 75-100 [facility] Comment on above: Performed By: #### L 9000.0800 ####[facility] [address] [place], [address] Read Back By Yes Normal [facility] Comment on above: Performed By: #### L 9000.0800 ####[facility] [address] [place], [address] Results To José Miguel Normal [facility] Comment on above: Performed By: #### L 9000.0800 ####[facility] [address] [place], [address] SITE L Radial Normal [facility] Comment on above: Performed By: #### L 9000.0800 ####[facility] [address] [place], [address] SO2 95 Normal 95-99 [facility] Comment on above: Performed By: #### L 9000.0800 ####[facility] [address] [place], [address] Time Given 09:09:17 [facility] Comment on above: Performed By: #### L 9000.0800 ####[facility] [address] [place], [address] Brain/Head without Contrasto n 07-26-2024 Brain/Head without Contrast Normal [facility] Brain/Head without Contrast Normal [facility] CALCIUM, IONIZEDon CALCIUM IONIZED 2.80 mg/dL Low 4.30-5.20 [facility] Comment on above: Performed By: #### L AB54 ####Typesetter Apprentice: MARY SOTELO ([phone])[facility])[address] [place] [address] PH, IONIZED CALCIUM 7.29 Low 7.31-7.46 [facility] Comment on above: Performed By: #### L AB54 ####Typesetter Apprentice: MARY SOTELO ([phone])[facility])[address] [place] [address] CBC WITH AUTO DIFFERENTIALon 07-26-2024 Basophils (Bld) [#/Vol] 0.0 10*3/uL Normal 0.0-0.2 [facility] Comment on above: Performed By: #### L [id number] ####Typesetter Apprentice: MARY SOTELO ([phone])[facility])[address] [place] [address] Basophils/100 WBC (Bld) 0.1 % Normal 0.0-2.0 [facility] Comment on above: Performed By: #### L [id number] ####Typesetter Apprentice: MARY SOTELO ([phone])[facility])[address] [place] [address] Eosinophils (Bld) [#/Vol] 0.0 10*3/uL Normal 0.0-0.5 [facility] Comment on above: Performed By: #### L [id number] ####Typesetter Apprentice: MARY SOTELO ([phone])[facility])[address] [place] [address] Eosinophils/100 WBC (Bld) 0.1 % Normal 0.0-6.0 [facility] Comment on above: Performed By: #### L [id number] ####Typesetter Apprentice: MARY [phone])[facility])[address] [place] [address] Erythrocyte distribution width (RBC) [Ratio] 15.5 % High 11.5-15.0 [facility] Comment on above: Performed By: #### L [id number] ####Typesetter Apprentice: MARY SOTELO ([phone])[facility])[address] [place] [address] Hematocrit (Bld) [Volume fraction] 31.3 % Low 35.0-47.0 [facility] Comment on above: Performed By: #### L [id number] ####Typesetter Apprentice: MARY SOTELO ([phone])[facility])[address] [place] [address] Hemoglobin (Bld) [Mass/Vol] 10.1 g/dL Low 11.7-16.0 [facility] Comment on above: Performed By: #### L [id number] ####Typesetter Apprentice: MARY SOTELO ([phone])[facility])[address] [place] [address] IMMATURE GRANS % 0.6 % Normal 0.0-2.0 [facility] Comment on above: Performed By: #### L [id number] ####Typesetter Apprentice: MARY SOTELO ([phone])[facility])[address] [place] [address] IMMATURE GRANS ABSOLUTE 0.1 10*3/uL High <0.1 [facility] Comment on above: Performed By: #### L [id number] ####Typesetter Apprentice: MARY SOTELO ([phone])[facility])[address] [place] [address] Lymphocytes (Bld) [#/Vol] 1.2 10*3/uL Normal 1.0-4.3 [facility] Comment on above: Performed By: #### L [id number] ####Typesetter Apprentice: MARY SOTELO ([phone])[facility])[address] [place] [address] [place] Lymphocytes/100 WBC (Bld) 6.2 % Low 15.0-45.0 [facility] Comment on above: Performed By: #### L [id number] ####Typesetter Apprentice: MARY SOTELO ([phone])[facility])[address] [place] [address] MCH (RBC) [Entitic mass] 28.6 pg Normal 26.0-34.0 [facility] Comment on above: Performed By: #### L [id number] ####Typesetter Apprentice: MARY SOTELO ([phone])[facility])[address] [place] [address] MCHC 32.3 % Normal 30.5-36.0 [facility] Comment on above: Performed By: #### L [id number] ####Typesetter Apprentice: MARY SOTELO ([phone])[facility])[address] [place] [address] MCV (RBC) [Entitic vol] 88.7 fL Normal 77.0-99.0 [facility] Comment on above: Performed By: #### L [id number] ####Typesetter Apprentice: MARY SOTELO ([phone])[facility])[address] [place] [address] Monocytes (Bld) [#/Vol] 1.4 10*3/uL High 0.0-0.9 [facility] Comment on above: Performed By: #### L [id number] ####Typesetter Apprentice: MARY SOTELO ([phone])[facility])[address] [place] [address] Monocytes/100 WBC (Bld) 7.2 % Normal 5.0-13.0 [facility] Comment on above: Performed By: #### L [id number] ####Typesetter Apprentice: MARY SOTELO ([phone])[facility])[address] [place] [address] NEUTROPHILS ABSOLUTE 16.1 10*3/uL High 1.8-7.5 [facility] Comment on above: Performed By: #### L [id number] ####Typesetter Apprentice: MARY SOTELO ([phone])[facility] ([facility])[address] [place] [address] Neutrophils/100 WBC (Bld) 85.8 % High 38.0-82.0 [facility] Comment on above: Performed By: #### L [id number] ####Typesetter Apprentice: MARY SOTELO ([phone])[facility] ([facility])[address] [place] [address] NRBC 1.1 /100 WBCs Normal 0.0-2.0 [facility] Comment on above: Performed By: #### L [id number] ####Typesetter Apprentice: MARY SOTELO ([phone])[facility])[address] [place] [address] Platelet mean volume (Bld) [Entitic vol] 11.0 fL Normal 9.0-12.7 [facility] Comment on above: Performed By: #### L [id number] ####Typesetter Apprentice: MARY SOTELO ([phone])[facility] ([facility])[address] [place] [address] Platelets (Bld) [#/Vol] 244 10*3/uL Normal 140-440 [facility] Comment on above: Performed By: #### L [id number] ####Typesetter Apprentice: MARY SOTELO ([phone])[facility])[address] [place] [address] RBC (Bld) [#/Vol] 3.53 10*6/uL Low 3.80-5.20 [facility] Comment on above: Performed By: #### L [id number] ####Typesetter Apprentice: MARY SOTELO ([phone])[facility])[address] [place] [address] WBC (Bld) [#/Vol] 18.7 10*3/uL High 3.6-10.7 [facility] Comment on above: Performed By: #### L [id number] ####Typesetter Apprentice: MARY SOTELO ([phone])[facility] ([facility])[address] [place] [address] CBC-Complete Blood Cnt No Josee infante 07-26-2024 Erythrocyte distribution width (RBC) [Ratio] 15.0 % High 11.6-14.6 [facility] Comment on above: Performed By: #### L 100.0500, L500.3600 ####[facility] [address] [place], [address] Hematocrit (Bld) [Volume fraction] 22.7 % Low 37-47 [facility] Comment on above: Performed By: #### L 100.0500, L500.3600 ####[facility] [address] [place], [address] Hemoglobin (Bld) [Mass/Vol] 6.9 g/dL Low 12.0-15.0 [facility] Comment on above: Performed By: #### L 100.0500, L500.3600 ####[facility] [address] [place], [address] MCH (RBC) [Entitic mass] 28.9 pg Normal 27.0-32.0 [facility] Comment on above: Performed By: #### L 100.0500, L500.3600 ####[facility] [address] [place], [address] MCHC (RBC) [Mass/Vol] 30.4 g/dL Low 32-36 [facility] Comment on above: Performed By: #### L 100.0500, L500.3600 ####[facility] [address] [place], [address] MCV (RBC) [Entitic vol] 95.0 fL Normal 81-99 [facility] Comment on above: Performed By: #### L 100.0500, L500.3600 ####[facility] [address] [place], [address] Platelet mean volume (Bld) [Entitic vol] 10.8 fL Normal 6.2-12.0 [facility] Comment on above: Performed By: #### L 100.0500, L500.3600 ####[facility] [address] [place], [address] Platelets (Bld) [#/Vol] 164 10*3/uL Normal 150-450 [facility] Comment on above: Performed By: #### L 100.0500, L500.3600 ####[facility] [address] [place], [address] RBC (Bld) [#/Vol] 2.39 10*6/uL Low 4.2-5.4 [facility] Comment on above: Performed By: #### L 100.0500, L500.3600 ####[facility] [address] [place], [address] RDW SD 52.6 fl High 35.1-43.9 [facility] Comment on above: Performed By: #### L 100.0500, L500.3600 ####[facility] [address] [place], [address] WBC (Bld) [#/Vol] 8.3 10*3/uL Normal 4.4-11.0 [facility] Comment on above: Performed By: #### L 100.0500, L500.3600 ####[facility] [address] [place], [address] COMPREHENSIVE METABOLIC PANE [place] 07-26-2024 Albumin [Mass/Vol] 2.9 g/dL Low 3.5-5.0 [facility] Comment on above: Performed By: #### L AB17, FNP823, SBB229, [id number], TUP485 ####Typesetter Apprentice: MARY SOTELO ([phone])[facility] ([facility])[address] ALP [Catalytic activity/Vol] 68 U/L Normal 38-126 [facility] Comment on above: Performed By: #### L AB17, HQH771, MXP229, [id number], LER469 ####Typesetter Apprentice: MARY SOTELO ([phone])[facility] ([facility])[address] [place] [address] ALT [Catalytic activity/Vol] 21 U/L Normal 0-34 [facility] Comment on above: Performed By: #### L AB17, APO811, CFC053, [id number], CJZ937 ####Typesetter Apprentice: MARY SOTELO ([phone])[facility] ([facility])[address] [place] [address] Anion gap [Moles/Vol] 10 mmol/L Normal 3-13 [facility] Comment on above: Performed By: #### L AB17, IQA633, ORD837, [id number], FDH903 ####Typesetter Apprentice: MARY SOTELO ([phone])[facility] ([facility])[address] [place] [address] AST [Catalytic activity/Vol] 40 U/L Normal 15-46 [facility] Comment on above: Performed By: #### L AB17, RNC894, MFP583, [id number], HWI845 ####Typesetter Apprentice: MARY SOTELO ([phone])[facility] ([facility])[address] [place] [address] Bilirubin [Mass/Vol] 0.5 mg/dL Normal 0.2-1.3 [facility] Comment on above: Performed By: #### L AB17, FPD881, ZGI220, [id number], YLK053 ####Typesetter Apprentice: MARY SOTELO ([phone])[facility] ([facility])[address] [place] [address] Calcium [Mass/Vol] 5.5 mg/dL Critically low 8.4-10.4 [facility] Comment on above: Performed By: #### L AB17, MVT795, OUW697, [id number], BSJ819 ####Typesetter Apprentice: MARY SOTELO ([phone])[facility] ([facility])[address] [place] [address] [place] Chloride [Moles/Vol] 98 mmol/L Normal 98-107 [facility] Comment on above: Performed By: #### L AB17, VIM635, BHA742, [id number], RHQ312 ####Typesetter Apprentice: MARY SOTELO ([phone])[facility] ([facility])[address] [place] [address] CO2 [Moles/Vol] 17 mmol/L Low 22-30 [facility] Comment on above: Performed By: #### L AB17, UHZ822, HXZ462, [id number], WNI864 ####Typesetter Apprentice: MARY SOTELO ([phone])[facility] ([facility])[address] [place] [address] Creatinine [Mass/Vol] 4.56 mg/dL High 0.52-1.04 [facility] Comment on above: Performed By: #### L AB17, DGM249, HXC974, [id number], JSN128 ####Typesetter Apprentice: MARY SOTELO ([phone])[facility] ([facility])[address] [place] [address] GLOMERULAR FILTRATION RATE ML/MIN/1.73 SQ M.PREDICTED 10.2 mL/min/1.73m*2 Low >60.0 [facility] Comment on above: Result Comment: Calc ulation based on the Chronic Kidney Disease Epidemiology Collaboration (CKD-EPI) equation refit without adjustment for race Performed By: #### L AB17, CZU288, EQD415, [id number], NZP681 ####Typesetter Apprentice: MARY SOTELO ([phone])[facility] ([facility])[address] [place] [address] [place] Glucose [Mass/Vol] 252 mg/dL High 70-100 [facility] Comment on above: Performed By: #### L AB17, TPR276, GIE169, [id number], KFM240 ####Typesetter Apprentice: MARY SOTELO ([phone])[facility])[address] [place] [address] Potassium [Moles/Vol] 5.5 mmol/L High 3.5-5.1 [facility] Comment on above: Performed By: #### L AB17, QVJ819, RZU662, [id number], AET358 ####Typesetter Apprentice: MARY SOTELO ([phone])[facility])[address] [place] [address] Protein [Mass/Vol] 5.5 g/dL Low 6.3-8.2 [facility] Comment on above: Performed By: #### L AB17, EGJ839, BUF441, [id number], JIH521 ####Typesetter Apprentice: MARY SOTELO ([phone])[facility] ([facility])[address] [place] [address] Sodium [Moles/Vol] 125 mmol/L Low 135-145 [facility] Comment on above: Performed By: #### L AB17, OQW926, EOP462, [id number], EJX538 ####Typesetter Apprentice: MARY SOTELO ([phone])[facility] ([facility])[address] [place] [address] Urea nitrogen [Mass/Vol] 76 mg/dL High 7-17 [facility] Comment on above: Performed By: #### L AB17, PSC993, UPX803, [id number], KBC281 ####Typesetter Apprentice: MARY SOTELO ([phone])[facility])[address] [place] [address] [place] CPK Total, Creatine Kinaseon 07-26-2024 CPK TOTAL 1209 U/L High 26-192 [facility] Comment on above: Order Comment: Comme nts: DC when propofol is d/c'dDC when propofol is d/c'd Performed By: #### L 501.3620, L501.5000 ####[facility] [address] [place], [place], [address] CREATININE, URINE, RANDOMon 07-26-2024 CREATININE, URINE 96.9 mg/dL Normal No Range [facility] Comment on above: Performed By: #### L AB444, XDY389, YNB602 ####Typesetter Apprentice: MARY SOTELO ([phone])[facility] ([facility])[address] [place] [address] [place] CERVICAL SPINE WO IV CONT RASTon 07-26-2024 CT CERVICAL SPINE WO IV CONTRAST Normal [facility] HEAD WO IV CONTRASTon CT HEAD WO IV CONTRAST Normal [facility] CXR for Line Placementon CXR for Line Placement Normal [facility] Chest 1 View (Portable)on Chest 1 View (Portable) Normal [facility] Consulton 07-26-2024 Consult Normal [facility] Consultation - Intensiviston 07-26-2024 Consultation - Occupational Health Physician Normal [facility] HEMOGLOBIN A1Con 07-26-2024 Glucose [Mass/Vol] 131 mg/dL Normal [facility] Comment on above: Order Comment: If no t done within the last 3 mos Performed By: #### L AB90 ####Typesetter Apprentice: MARY SOTELO ([phone])[facility] ([facility])[address] [place] [address] HbA1c (Bld) [Mass fraction] 6.2 % High <5.7 [facility] Comment on above: Order Comment: If no t done within the last 3 mos Result Comment: Norm al less than 5.7%Prediabetes 5.7% to 6.4%Diabetes 6.5% or higher--HgbA1C levels may not be accurate in patients who have renal disease, received recent blood transfusions, are anemic, or who have dyshemoglobinemia. Performed By: #### L AB90 ####Typesetter Apprentice: MARY SOTELO ([phone])[facility] ([facility])[address] [place] [address] LACTIC ACID WITH REFLEXon Lactate [Moles/Vol] 0.9 mmol/L Normal 0.7-2.0 [facility] Comment on above: Performed By: #### L [id number] ####Typesetter Apprentice: MARY SOTELO ([phone])[facility])[address] [place] [address] LEGIONELLA AND STREPTOCOCCUS URINE ANTIGENon 07-26-2024 LEGIONELLA AND STREPTOCOCCUS URINE ANTIGEN Normal [facility] Comment on above: Performed By: #### L [id number] ####Typesetter Apprentice: MARY SOTELO ([phone])[facility])[address] [place] [address] MAGNESIUMon 07-26-2024 Magnesium [Mass/Vol] 1.5 mg/dL Low 1.6-2.3 [facility] Comment on above: Performed By: #### L AB17, JQG581, VZG038, [id number], WPQ999 ####Typesetter Apprentice: MARY SOTELO ([phone])[facility])[address] [place] [address] MR/CON.PCM.NEon 07-26-2024 MR/CON.PCM.NE Normal [facility] OSMOLALITY, SERUMon 07-26-20 24 OSMOLALITY, SERUM 309 mOsm/kg High 280-300 [facility] Comment on above: Performed By: #### L AB107 ####Typesetter Apprentice: MARY SOTELO ([phone])[facility])[address] [place] [address] OSMOLALITY, URINEon 07-26-20 24 OSMOLALITY, URINE 316 mOsm/kg Normal 300-1000 [facility] Comment on above: Performed By: #### L AB444, RNX191, MCW434 ####Typesetter Apprentice: MARY SOTELO ([phone])[facility])[address] [place] [address] PHOSPHORUSon 07-26-2024 Phosphate [Mass/Vol] 8.5 mg/dL High 2.5-4.5 [facility] Comment on above: Performed By: #### L AB17, JPD306, HLL054, [id number], OEL090 ####Typesetter Apprentice: MARY SOTELO ([phone])[facility])[address] [place] [address] PROCALCITONIN TESTon 024 PROCALCITONIN 2.48 ng/mL High 0.00-0.09 [facility] Comment on above: Result Comment: BINA Olivarez COMMENTS:PCT <0.50 = Low risk of severe sepsis and/or septic shock.PCT >2.00 = High risk of severe sepsis and/or septic shock. Performed By: #### L [id number] ####Typesetter Apprentice: MARY SOTELO ([phone])[facility] ([id number] [place] [address] Partial Thromboplast Timeon 07-26-2024 aPTT Coag (Bld) [Time] 33.7 s Normal 24.1-36.2 [facility] Comment on above: Performed By: #### L 300.4310, L300.3900 ####[facility] [id number] [place], [address] Procedure Reporton Procedure Report Normal [facility] Procedure Report Normal [facility] Prothrombin Time w/INRon INR Coag (PPP) [Relative time] 1.3 {INR} Normal [facility] Comment on above: Performed By: #### L 300.4310, L300.3900 ####[facility] [id number] [place], [address] PT Coag (PPP) [Time] 15.7 s High 11.7-14.9 [facility] Comment on above: Performed By: #### L 300.4310, L300.3900 ####[facility] [id number] [place], [address] Renal Profileon 07-26-2024 Albumin [Mass/Vol] 2.4 g/dL Low 3.2-5.0 [facility] Comment on above: Performed By: #### L 100.0500, L500.3600 ####[facility] [id number] [place], [address] BUN/CRE 15.4 RATIO Normal 10-20 [facility] Comment on above: Performed By: #### L 100.0500, L500.3600 ####[facility] [address] [place], [address] CA,Total 5.5 mg/dL Invalid Interpretation Code 8.5-10.1 [facility] Comment on above: Result Comment: Crit ical Result(s) Called at: 03:18:33 07/26/2024 by:Ana Rosa Andrew to [employer]. Results read back by same. Performed By: #### L 100.0500, L500.3600 ####[facility] [address] [place], [address] Chloride [Moles/Vol] 100 mmol/L Normal 98-107 [facility] Comment on above: Performed By: #### L 100.0500, L500.3600 ####[facility] [address] [place], [address] CO2 [Moles/Vol] 20.0 mmol/L Low 21.0-32.0 [facility] Comment on above: Performed By: #### L 100.0500, L500.3600 ####[facility] [address] [place], [address] Creatinine [Mass/Vol] 3.84 mg/dL High 0.55-1.02 [facility] Comment on above: Result Comment: The validity of the calculated GFR GFRAA in patients over70 years has not been determined. Clinical correlation isessential. Performed By: #### L 100.0500, L500.3600 ####[facility] [address] [place], [address] ECRCL 11.26 ml/min Normal [facility] Comment on above: Performed By: #### L 100.0500, L500.3600 ####[facility] [address] [place], [address] EST GFR - AA 15 mL/min Low >60 [facility] Comment on above: Result Comment: Afri can Dominican GFR Calc Performed By: #### L 100.0500, L500.3600 ####[facility] [address] [place], [address] GFR/1.73 sq M.predicted among non-blacks MDRD (S/P/Bld) [Vol rate/Area] 13 mL/min/{1.73_m2} Low >60 [facility] Comment on above: Result Comment: Non- GFR Calc Performed By: #### L 100.0500, L500.3600 ####[facility] [address] [place], [address] Glucose [Mass/Vol] 167 mg/dL High 74-106 [facility] Comment on above: Result Comment: Fast ing Glucose result greater than or equal to 126 mg/dLsuggests DIABETES MELLITUS per A.D.A. criteria. Performed By: #### L 100.0500, L500.3600 ####[facility] [address] [place], [address] Phosphate [Mass/Vol] 7.0 mg/dL High 2.5-4.9 [facility] Comment on above: Performed By: #### L 100.0500, L500.3600 ####[facility] [address] [place], [address] Potassium [Moles/Vol] 5.6 mmol/L High 3.5-5.1 [facility] Comment on above: Performed By: #### L 100.0500, L500.3600 ####[facility] [address] [place], [address] Sodium [Moles/Vol] 131 mmol/L Low 136-145 [facility] Comment on above: Performed By: #### L 100.0500, L500.3600 ####[facility] [address] [place], [address] Urea nitrogen [Mass/Vol] 59 mg/dL High 7-18 [facility] Comment on above: Performed By: #### L 100.0500, L500.3600 ####[facility] [address] [place], [address] SODIUM, URINE, RANDOMon 07-05 Sodium (U) [Moles/Vol] 31 mmol/L Normal 30-90 [facility] Comment on above: Performed By: #### L AB444, LRC085, OBT630 ####Typesetter Apprentice: MARY SOTELO ([phone])[facility] ([facility])[address] [place] [address] [place] THYROID STIMULATING HORMONEo n 07-26-2024 THYROID STIMULATING HORMONE 3.472 uIU/mL Normal 0.465-4.680 [facility] Comment on above: Performed By: #### L AB17, SFO238, ITO318, [id number], BSG278 ####Typesetter Apprentice: MARY SOTELO ([phone])[facility] ([facility])[address] [place] [address] [place] TROPONIN Ion 07-26-2024 Troponin I.cardiac [Mass/Vol] 0.014 ng/mL Normal <0.034 [facility] Comment on above: Result Comment: BINA Olivarez COMMENTS:Patients with high levels of Biotin oral intake (ie >5 mg/day) may have falsely decreased Troponin levels. Performed By: #### L AB747 ####Typesetter Apprentice: MARY SOTELO ([phone])[facility] ([facility])[address] [place] [address] [place] TROPONIN, WITH SERIAL REFLEX on 07-26-2024 Troponin I.cardiac [Mass/Vol] 0.013 ng/mL Normal <0.034 [facility] Comment on above: Result Comment: BINA Olivarez COMMENTS:Patients with high levels of Biotin oral intake (ie >5 mg/day) may have falsely decreased Troponin levels. Performed By: #### L AB17, IEN615, OHH986, [id number], [id number] ####Typesetter Apprentice: MARY SOTELO ([phone])[facility] ([address] Triglycerideson 07-26-2024 Triglyceride [Mass/Vol] 103 mg/dL Normal [facility] Comment on above: Order Comment: Comme nts: DC when propofol is d/c'dDC when propofol is d/c'd Result Comment: The drugs N-Acetylcysteine and Metamizole may falselydepress this assay.Serum Triglycerides Reference Interval Normal <150 mg/dL Borderline high 150 - 199 mg/dL High 200 - 499 mg/dL Very High > or = 500 mg/dL Performed By: #### L 501.3620, L501.5000 ####[facility] [address] [place], [address] XR ABDOMEN 1 VIEWon 07-26-20 XR ABDOMEN 1 VIEW Normal [facility] XR CHEST 1 VIEWon 07-26-2024 XR CHEST 1 VIEW Normal [facility] Basic Metabolic Profile (BMP )on 07-25-2024 BUN/CRE 13.8 RATIO Normal 10-20 [facility] Comment on above: Performed By: #### L 500.2500 ####[facility] [address] [place], [address] CA,Total 5.7 mg/dL Invalid Interpretation Code 8.5-10.1 [facility] Comment on above: Result Comment: Crit ical Result(s) Called at: 07:31:06 07/25/2024 by: Hannah Velazquez RN ([facility]). Results read back by same. Performed By: #### L 500.2500 ####[facility] [address] [place], [address] Chloride [Moles/Vol] 97 mmol/L Low 98-107 [facility] Comment on above: Performed By: #### L 500.2500 ####[facility] [address] [place], [address] CO2 [Moles/Vol] 23.0 mmol/L Normal 21.0-32.0 [facility] Comment on above: Performed By: #### L 500.2500 ####[facility] [address] [place], [address] Creatinine [Mass/Vol] 3.77 mg/dL High 0.55-1.02 [facility] Comment on above: Result Comment: The validity of the calculated GFR GFRAA in patients over70 years has not been determined. Clinical correlation isessential. Performed By: #### L 500.2500 ####[facility] [address] [place], [address] ECRCL 11.47 ml/min Normal [facility] Comment on above: Performed By: #### L 500.2500 ####[facility] [address] [place], [address] EST GFR - AA 16 mL/min Low >60 [facility] Comment on above: Result Comment: Afri can Dominican GFR Calc Performed By: #### L 500.2500 ####[facility] [address] [place], [address] GAP 10 Normal 5-15 [facility] Comment on above: Performed By: #### L 500.2500 ####[facility] [address] [place], [address] GFR/1.73 sq M.predicted among non-blacks MDRD (S/P/Bld) [Vol rate/Area] 13 mL/min/{1.73_m2} Low >60 [facility] Comment on above: Result Comment: Non- GFR Calc Performed By: #### L 500.2500 ####[facility] [address] [place], [address] Glucose [Mass/Vol] 275 mg/dL High 74-106 [facility] Comment on above: Result Comment: Gluc ose result greater than or equal to 200 mg/dLsuggests DIABETES MELLITUS per A.D.A. criteria. Performed By: #### L 500.2500 ####[facility] [address] [place], [address] Potassium [Moles/Vol] 5.1 mmol/L Normal 3.5-5.1 [facility] Comment on above: Performed By: #### L 500.2500 ####[facility] [address] [place], [address] Sodium [Moles/Vol] 130 mmol/L Low 136-145 [facility] Comment on above: Performed By: #### L 500.2500 ####[facility] [address] [place], [address] Urea nitrogen [Mass/Vol] 52 mg/dL High 7-18 [facility] Comment on above: Performed By: #### L 500.2500 ####[facility] [address] [place], [address] Bedside Glucoseon 07-25-2024 FINGERSTICK GLU 249 mg/dL High 74-106 [facility] Comment on above: Result Comment: SHELLY GEMENT OF PATIENT CARE PER NURSING PROTOCOL Performed By: #### L 501.080 ####[facility] [address] [place], [address] FINGERSTICK GLU 140 mg/dL High -[address] [place] [address] Comment on above: Result Comment: SHELLY GEMENT OF PATIENT CARE PER NURSING PROTOCOL Performed By: #### L 501.080 ####[facility] [address] [place], [address] FINGERSTICK GLU 270 mg/dL High 74-106 [facility] Comment on above: Result Comment: SHELLY GEMENT OF PATIENT CARE PER NURSING PROTOCOL Performed By: #### L 501.080 ####[facility] [address] [place], [address] CBC W/Diff, Automatedon 09-12 05-2023 Absolute Lymph 1.26 X10 3/uL Normal 0.83-4.51 [facility] Comment on above: Performed By: #### L 100.0100 ####[facility] [address] [place], [address] Absolute Neut 7.1 X10 3/uL Normal 2.0-7.7 [facility] Comment on above: Performed By: #### L 100.0100 ####[facility] [address] [place], [address] Basophils/100 WBC (Bld) 0.2 % Normal 0-1 [facility] Comment on above: Performed By: #### L 100.0100 ####[facility] [address] [place], [address] Eosinophils/100 WBC (Bld) 0.6 % Normal 0-5 [facility] Comment on above: Performed By: #### L 100.0100 ####[facility] [address] [place], [address] Erythrocyte distribution width (RBC) [Ratio] 15.1 % High 11.6-14.6 [facility] Comment on above: Performed By: #### L 100.0100 ####[facility] [address] [place], [address] Hematocrit (Bld) [Volume fraction] 26.8 % Low 37-47 [facility] Comment on above: Performed By: #### L 100.0100 ####[facility] [address] [place], [address] Hemoglobin (Bld) [Mass/Vol] 8.0 g/dL Low 12.0-15.0 [facility] Comment on above: Performed By: #### L 100.0100 ####[facility] [address] [place], [address] IG% 0.800 Normal 0.0-0.9 [facility] Comment on above: Result Comment: IG% - Immature Granulocytes (promyelocytes, myelocytes andmetamyelocytes) > 1% indicates that a LEFT SHIFT is Present. Performed By: #### L 100.0100 ####[facility] [address] [place], [address] Lymphocytes/100 WBC (Bld) 13.5 % Low 19-41 [facility] Comment on above: Performed By: #### L 100.0100 ####[facility] [address] [place], [address] MCH (RBC) [Entitic mass] 28.5 pg Normal 27.0-32.0 [facility] Comment on above: Performed By: #### L 100.0100 ####[facility] [address] [place], [address] MCHC (RBC) [Mass/Vol] 29.9 g/dL Low 32-36 [facility] Comment on above: Performed By: #### L 100.0100 ####[facility] [address] [place], [address] MCV (RBC) [Entitic vol] 95.4 fL Normal 81-99 [facility] Comment on above: Performed By: #### L 100.0100 ####[facility] [address] [place], [address] Monocytes/100 WBC (Bld) 9.1 % Normal 0-10 [facility] Comment on above: Performed By: #### L 100.0100 ####[facility] [address] [place], [address] Neutrophils/100 WBC (Bld) 75.8 % High 47-70 [facility] Comment on above: Performed By: #### L 100.0100 ####[facility] [address] [place], [address] Nucleated RBC (Bld) [#/Vol] 0.3 10*3/uL Normal 0-5 [facility] Comment on above: Performed By: #### L 100.0100 ####[facility] [address] [place], [address] Platelet mean volume (Bld) [Entitic vol] 11.0 fL Normal 6.2-12.0 [facility] Comment on above: Performed By: #### L 100.0100 ####[facility] [address] [place], [address] Platelets (Bld) [#/Vol] 204 10*3/uL Normal 150-450 [facility] Comment on above: Performed By: #### L 100.0100 ####[facility] [address] [place], [address] RBC (Bld) [#/Vol] 2.81 10*6/uL Low 4.2-5.4 [facility] Comment on above: Performed By: #### L 100.0100 ####[facility] [address] [place], [address] RDW SD 53.3 fl High 35.1-43.9 [facility] Comment on above: Performed By: #### L 100.0100 ####[facility] [address] [place], [address] WBC (Bld) [#/Vol] 9.3 10*3/uL Normal 4.4-11.0 [facility] Comment on above: Performed By: #### L 100.0100 ####[facility] [address] [place], [address] HH, Hemoglobin AND Hematocri ton 07-25-2024 Hematocrit (Bld) [Volume fraction] 28.5 % Low 37-47 [facility] Comment on above: Performed By: #### L 100.0600 ####[facility] [address] [place], [address] Hemoglobin (Bld) [Mass/Vol] 8.7 g/dL Low 12.0-15.0 [facility] Comment on above: Performed By: #### L 100.0600 ####[facility] [address] [place], [address] 12 Lead EKGon 07-24-2024 12 Lead EKG Normal [facility] BNP,B-Type NATRIURETIC PEPTI Rinku 07-24-2024 Natriuretic peptide B (Bld) [Mass/Vol] 2478.5 pg/mL High 0-100 [facility] Comment on above: Performed By: #### L 503.6030, L501.2300, L501.3620, L509.7000, L101.9900, L501.5200, L503.6550, L501.6710, L504.2610, L503.6620, L300.8000 ####[facility] [address] [place], [address] Basic Metabolic Profile (BMP )on 07-24-2024 BUN Normal 7-18 [facility] Comment on above: Result Comment: Canc elled via OM: Order edited - Discontinuing original order Performed By: #### L 500.2500 ####[facility] [address] [place], [address] BUN/CRE Normal 10-20 [facility] Comment on above: Result Comment: Canc elled via OM: Order edited - Discontinuing original order Performed By: #### L 500.2500 ####[facility] [address] [place], [address] CA,Total Normal 8.5-10.1 [facility] Comment on above: Result Comment: Canc elled via OM: Order edited - Discontinuing original order Performed By: #### L 500.2500 ####[facility] [address] [place], [address] CL Normal 98-107 [facility] Comment on above: Result Comment: Canc elled via OM: Order edited - Discontinuing original order Performed By: #### L 500.2500 ####[facility] [address] [place], [address] CO2 Normal 21.0-32.0 [facility] Comment on above: Result Comment: Canc elled via OM: Order edited - Discontinuing original order Performed By: #### L 500.2500 ####[facility] [address] [place], [address] CREAT,SERUM Normal 0.55-1.02 [facility] Comment on above: Result Comment: Canc elled via OM: Order edited - Discontinuing original order Performed By: #### L 500.2500 ####[facility] [address] [place], [address] EST GFR Normal >60 [facility] Comment on above: Result Comment: Canc elled via OM: Order edited - Discontinuing original order Performed By: #### L 500.2500 ####[facility] [address] [place], [address] EST GFR - AA Normal >60 [facility] Comment on above: Result Comment: Canc elled via OM: Order edited - Discontinuing original order Performed By: #### L 500.2500 ####[facility] [address] [place], [address] GAP Normal 5-15 [facility] Comment on above: Result Comment: Canc elled via OM: Order edited - Discontinuing original order Performed By: #### L 500.2500 ####[facility] [address] [place], [address] GLU Normal 74-106 [facility] Comment on above: Result Comment: Canc elled via OM: Order edited - Discontinuing original order Performed By: #### L 500.2500 ####[facility] [address] [place], [address] Potassium Normal 3.5-5.1 [facility] Comment on above: Result Comment: Can elled via OM: Order edited - Discontinuing original order Performed By: #### L 500.2500 ####[facility] [address] [place], [address] Basic Metabolic Profile (BMP) Normal 136-145 [facility] Comment on above: Result Comment: Canc elled via OM: Order edited - Discontinuing original order Performed By: #### L 500.2500 ####[facility] [address] [place], [address] BUN/CRE 14.2 RATIO Normal 10-20 [facility] Comment on above: Performed By: #### L 500.2500 ####[facility] [address] [place], [address] CA,Total 5.5 mg/dL Invalid Interpretation Code 8.5-10.1 [facility] Comment on above: Performed By: #### L 500.2500 ####[facility] [address] [place], [address] Chloride [Moles/Vol] 103 mmol/L Normal 98-107 [facility] Comment on above: Performed By: #### L 500.2500 ####[facility] [address] [place], [address] CO2 [Moles/Vol] 24.0 mmol/L Normal 21.0-32.0 [facility] Comment on above: Performed By: #### L 500.2500 ####[facility] [address] [place], [address] Creatinine [Mass/Vol] 3.65 mg/dL High 0.55-1.02 [facility] Comment on above: Result Comment: The validity of the calculated GFR GFRAA in patients over70 years has not been determined. Clinical correlation isessential. Performed By: #### L 500.2500 ####[facility] [address] [place], [address] ECRCL 11.92 ml/min Normal [facility] Comment on above: Performed By: #### L 500.2500 ####[facility] [address] [place], [address] EST GFR - AA 16 mL/min Low >60 [facility] Comment on above: Result Comment: Afri can Dominican GFR Calc Performed By: #### L 500.2500 ####[facility] [address] [place], [address] GAP 8 Normal 5-15 [facility] Comment on above: Performed By: #### L 500.2500 ####[facility] [address] [place], [address] GFR/1.73 sq M.predicted among non-blacks MDRD (S/P/Bld) [Vol rate/Area] 13 mL/min/{1.73_m2} Low >60 [facility] Comment on above: Result Comment: Non- GFR Calc Performed By: #### L 500.2500 ####[facility] [address] [place], [address] Glucose [Mass/Vol] 215 mg/dL High 74-106 [facility] Comment on above: Result Comment: Gluc ose result greater than or equal to 200 mg/dLsuggests DIABETES MELLITUS per A.D.A. criteria. Performed By: #### L 500.2500 ####[facility] [address] [place], [address] Potassium [Moles/Vol] 5.2 mmol/L High 3.5-5.1 [facility] Comment on above: Performed By: #### L 500.2500 ####[facility] [address] [place], [address] Sodium [Moles/Vol] 135 mmol/L Low 136-145 [facility] Comment on above: Performed By: #### L 500.2500 ####[facility] [address] [place], [address] Urea nitrogen [Mass/Vol] 52 mg/dL High 7-18 [facility] Comment on above: Performed By: #### L 500.2500 ####[facility] [address] [place], [address] Bedside Glucoseon 07-24-2024 FINGERSTICK GLU 239 mg/dL High 74-106 [facility] Comment on above: Result Comment: SHELLY GEMENT OF PATIENT CARE PER NURSING PROTOCOL Performed By: #### L 501.080 ####[facility] [address] [place], [address] FINGERSTICK GLU 281 mg/dL High 74-106 [facility] Comment on above: Result Comment: SHELLY GEMENT OF PATIENT CARE PER NURSING PROTOCOL Performed By: #### L 501.080 ####[facility] [address] [place], [address] FINGERSTICK GLU 287 mg/dL High 74-106 [facility] Comment on above: Result Comment: SHELLY GEMENT OF PATIENT CARE PER NURSING PROTOCOL Performed By: #### L 501.080 ####[facility] [address] [place], [address] FINGERSTICK GLU 193 mg/dL High 74-106 [facility] Comment on above: Result Comment: SHELLY GEMENT OF PATIENT CARE PER NURSING PROTOCOL Performed By: #### L 501.080 ####[facility] [address] [place], [address] FINGERSTICK GLU 337 mg/dL High 74-106 [facility] Comment on above: Result Comment: SHELLY GEMENT OF PATIENT CARE PER NURSING PROTOCOL Performed By: #### L 501.080 ####[facility] [address] [place], [address] FINGERSTICK GLU 177 mg/dL High 74-106 [facility] Comment on above: Result Comment: SHELLY GEMENT OF PATIENT CARE PER NURSING PROTOCOL Performed By: #### L 501.080 ####[facility] [address] [place], [address] FINGERSTICK GLU 225 mg/dL High 74-106 [facility] Comment on above: Result Comment: SHELLY GEMENT OF PATIENT CARE PER NURSING PROTOCOL Performed By: #### L 501.080 ####[facility] [address] [place], [address] CBC W/Diff, Automatedon 07-05 Absolute Lymph 0.47 X10 3/uL Low 0.83-4.51 [facility] Comment on above: Performed By: #### L 501.9985, L506.1000, L100.0100, L500.4050, L509.1000, L3300.0960 ####[facility] [address] [place], [address] Absolute Neut 6.3 X10 3/uL Normal 2.0-7.7 [facility] Comment on above: Performed By: #### L 501.9985, L506.1000, L100.0100, L500.4050, L509.1000, L3300.0960 ####[facility] [address] [place], [address] Basophils/100 WBC (Bld) 0.7 % Normal 0-1 [facility] Comment on above: Performed By: #### L 501.9985, L506.1000, L100.0100, L500.4050, L509.1000, L3300.0960 ####[facility] [address] [place], [address] Eosinophils/100 WBC (Bld) 1.6 % Normal 0-5 [facility] Comment on above: Performed By: #### L 501.9985, L506.1000, L100.0100, L500.4050, L509.1000, L3300.0960 ####[facility] [address] [place], [address] Erythrocyte distribution width (RBC) [Ratio] 14.9 % High 11.6-14.6 [facility] Comment on above: Performed By: #### L 501.9985, L506.1000, L100.0100, L500.4050, L509.1000, L3300.0960 ####[facility] [address] [place], [address] Hematocrit (Bld) [Volume fraction] 29.4 % Low 37-47 [facility] Comment on above: Performed By: #### L 501.9985, L506.1000, L100.0100, L500.4050, L509.1000, L3300.0960 ####[facility] [address] [place], [address] Hemoglobin (Bld) [Mass/Vol] 8.6 g/dL Low 12.0-15.0 [facility] Comment on above: Performed By: #### L 501.9985, L506.1000, L100.0100, L500.4050, L509.1000, L3300.0960 ####[facility] [address] [place], [address] IG% 2.100 High 0.0-0.9 [facility] Comment on above: Result Comment: IG% - Immature Granulocytes (promyelocytes, myelocytes andmetamyelocytes) > 1% indicates that a LEFT SHIFT is Present. Performed By: #### L 501.9985, L506.1000, L100.0100, L500.4050, L509.1000, L3300.0960 ####[facility] [address] [place], [address] Lymphocytes/100 WBC (Bld) 6.5 % Low 19-41 [facility] Comment on above: Performed By: #### L 501.9985, L506.1000, L100.0100, L500.4050, L509.1000, L3300.0960 ####[facility] [address] [place], [address] MCH (RBC) [Entitic mass] 28.2 pg Normal 27.0-32.0 [facility] Comment on above: Performed By: #### L 501.9985, L506.1000, L100.0100, L500.4050, L509.1000, L3300.0960 ####[facility] [address] [place], [address] MCHC (RBC) [Mass/Vol] 29.3 g/dL Low 32-36 [facility] Comment on above: Performed By: #### L 501.9985, L506.1000, L100.0100, L500.4050, L509.1000, L3300.0960 ####[facility] [address] [place], [address] MCV (RBC) [Entitic vol] 96.4 fL Normal 81-99 [facility] Comment on above: Performed By: #### L 501.9985, L506.1000, L100.0100, L500.4050, L509.1000, L3300.0960 ####[facility] [address] [place], [address] Monocytes/100 WBC (Bld) 2.2 % Normal 0-10 [facility] Comment on above: Performed By: #### L 501.9985, L506.1000, L100.0100, L500.4050, L509.1000, L3300.0960 ####[facility] [address] [place], [address] Neutrophils/100 WBC (Bld) 86.9 % High 47-70 [facility] Comment on above: Performed By: #### L 501.9985, L506.1000, L100.0100, L500.4050, L509.1000, L3300.0960 ####[facility] [address] [place], [address] Nucleated RBC (Bld) [#/Vol] 0.3 10*3/uL Normal 0-5 [facility] Comment on above: Performed By: #### L 501.9985, L506.1000, L100.0100, L500.4050, L509.1000, L3300.0960 ####[facility] [address] [place], [address] Platelet mean volume (Bld) [Entitic vol] 10.3 fL Normal 6.2-12.0 [facility] Comment on above: Performed By: #### L 501.9985, L506.1000, L100.0100, L500.4050, L509.1000, L3300.0960 ####[facility] [address] [place], [address] Platelets (Bld) [#/Vol] 196 10*3/uL Normal 150-450 [facility] Comment on above: Performed By: #### L 501.9985, L506.1000, L100.0100, L500.4050, L509.1000, L3300.0960 ####[facility] [address] [place], [address] RBC (Bld) [#/Vol] 3.05 10*6/uL Low 4.2-5.4 [facility] Comment on above: Performed By: #### L 501.9985, L506.1000, L100.0100, L500.4050, L509.1000, L3300.0960 ####[facility] [address] [place], [address] RDW SD 52.3 fl High 35.1-43.9 [facility] Comment on above: Performed By: #### L 501.9985, L506.1000, L100.0100, L500.4050, L509.1000, L3300.0960 ####[facility] [address] [place], [address] WBC (Bld) [#/Vol] 7.3 10*3/uL Normal 4.4-11.0 [facility] Comment on above: Performed By: #### L 501.9985, L506.1000, L100.0100, L500.4050, L509.1000, L3300.0960 ####[facility] [address] [place], [address] CPK Total, Creatine Kinaseon 07-24-2024 CPK TOTAL 604 U/L High 26-192 [facility] Comment on above: Order Comment: Comme nts: May add to ED labsComments: add to ED labsComments: may add to ED labsmay add to ED labs Performed By: #### L 503.6030, L501.2300, L501.3620, L509.7000, L101.9900, L501.5200, L503.6550, L501.6710, L504.2610, L503.6620, L300.8000 ####[facility] [address] [place], [address] CRPon 07-24-2024 C-REACTIVE PROT 62.00 mg/L High 0.0-3.0 [facility] Comment on above: Order Comment: Comme nts: May add to ED labsComments: add to ED labsComments: may add to ED labsmay add to ED labs Result Comment: C-Re active Protein (CRP) provides useful information for thediagnosis, therapy and monitoring of inflammatory processesand associated diseases. For the evaluation of Relative Riskfor Cardiovascular Disease, a High Sensitivity CRP (HSCRP)should be ordered. Performed By: #### L 503.6030, L501.2300, L501.3620, L509.7000, L101.9900, L501.5200, L503.6550, L501.6710, L504.2610, L503.6620, L300.8000 ####[facility] [address] [place], [address] Calcium, Urine (Random)on Calcium Ur [place] < 5.0 Normal Not Estab. [facility] Comment on above: Performed By: #### L 501.2240 ####[facility] [address] [place], [address] Comprehensive Metabolic Prof ilon 07-24-2024 Albumin [Mass/Vol] 2.9 g/dL Low 3.2-5.0 [facility] Comment on above: Performed By: #### L 501.9985, L506.1000, L100.0100, L500.4050, L509.1000, L3300.0960 ####[facility] [address] [place], [address] Albumin/Globulin [Mass ratio] 0.7 {ratio} Low 0.9-2.4 [facility] Comment on above: Performed By: #### L 501.9985, L506.1000, L100.0100, L500.4050, L509.1000, L3300.0960 ####[facility] [address] [place], [address] ALK P 78 U/L Normal 45-117 [facility] Comment on above: Performed By: #### L 501.9985, L506.1000, L100.0100, L500.4050, L509.1000, L3300.0960 ####[facility] [address] [place], [address] ALT [Catalytic activity/Vol] 17 U/L Normal 13-56 [facility] Comment on above: Performed By: #### L 501.9985, L506.1000, L100.0100, L500.4050, L509.1000, L3300.0960 ####[facility] [address] [place], [address] AST [Catalytic activity/Vol] 18 U/L Normal 15-37 [facility] Comment on above: Performed By: #### L 501.9985, L506.1000, L100.0100, L500.4050, L509.1000, L3300.0960 ####[facility] [address] [place], [address] Bilirubin [Mass/Vol] 0.40 mg/dL Normal 0.20-1.00 [facility] Comment on above: Result Comment: For patients on eltrombopag therapy, use of Dimension Redrock TBIL is not recommended. Performed By: #### L 501.9985, L506.1000, L100.0100, L500.4050, L509.1000, L3300.0960 ####[facility] [address] [place], [address] BUN/CRE 12.2 RATIO Normal 10-20 [facility] Comment on above: Performed By: #### L 501.9985, L506.1000, L100.0100, L500.4050, L509.1000, L3300.0960 ####[facility] [address] [place], [address] CA,Total 5.7 mg/dL Invalid Interpretation Code 8.5-10.1 [facility] Comment on above: Result Comment: Crit ical Result(s) Called at: 11:08:06 07/24/2024 by: Hannah Deleon RN ([facility]). Results read back by same. Performed By: #### L 501.9985, L506.1000, L100.0100, L500.4050, L509.1000, L3300.0960 ####[facility] [address] [place], [address] Chloride [Moles/Vol] 103 mmol/L Normal 98-107 [facility] Comment on above: Performed By: #### L 501.9985, L506.1000, L100.0100, L500.4050, L509.1000, L3300.0960 ####[facility] [address] [place], [address] CO2 [Moles/Vol] 23.0 mmol/L Normal 21.0-32.0 [facility] Comment on above: Performed By: #### L 501.9985, L506.1000, L100.0100, L500.4050, L509.1000, L3300.0960 ####[facility] [address] [place], [address] Creatinine [Mass/Vol] 3.45 mg/dL High 0.55-1.02 [facility] Comment on above: Result Comment: The validity of the calculated GFR GFRAA in patients over70 years has not been determined. Clinical correlation isessential. Performed By: #### L 501.9985, L506.1000, L100.0100, L500.4050, L509.1000, L3300.0960 ####[facility] [address] [place], [address] ECRCL 12.61 ml/min Normal [facility] Comment on above: Performed By: #### L 501.9985, L506.1000, L100.0100, L500.4050, L509.1000, L3300.0960 ####[facility] [address] [place], [address] EST GFR - AA 17 mL/min Low >60 [facility] Comment on above: Result Comment: Afri can Dominican GFR Calc Performed By: #### L 501.9985, L506.1000, L100.0100, L500.4050, L509.1000, L3300.0960 ####[facility] [address] [place], [address] GAP 8 Normal 5-15 [facility] Comment on above: Performed By: #### L 501.9985, L506.1000, L100.0100, L500.4050, L509.1000, L3300.0960 ####[facility] [address] [place], [address] GFR/1.73 sq M.predicted among non-blacks MDRD (S/P/Bld) [Vol rate/Area] 14 mL/min/{1.73_m2} Low >60 [facility] Comment on above: Result Comment: Non- GFR Calc Performed By: #### L 501.9985, L506.1000, L100.0100, L500.4050, L509.1000, L3300.0960 ####[facility] [address] [place], [address] Globulin (S) [Mass/Vol] 3.9 g/dL Normal 2.2-4.2 [facility] Comment on above: Performed By: #### L 501.9985, L506.1000, L100.0100, L500.4050, L509.1000, L3300.0960 ####[facility] [address] [place], [address] Glucose [Mass/Vol] 220 mg/dL High 74-106 [facility] Comment on above: Result Comment: Gluc ose result greater than or equal to 200 mg/dLsuggests DIABETES MELLITUS per A.D.A. criteria. Performed By: #### L 501.9985, L506.1000, L100.0100, L500.4050, L509.1000, L3300.0960 ####[facility] [address] [place], [address] Potassium [Moles/Vol] 6.2 mmol/L Invalid Interpretation Code 3.5-5.1 [facility] Comment on above: Result Comment: Crit ical Result(s) Called at: 11:08:06 07/24/2024 by: Hannah Deleon RN ([facility]). Results read back by same. Performed By: #### L 501.9985, L506.1000, L100.0100, L500.4050, L509.1000, L3300.0960 ####[facility] [address] [place], [address] Sodium [Moles/Vol] 134 mmol/L Low 136-145 [facility] Comment on above: Performed By: #### L 501.9985, L506.1000, L100.0100, L500.4050, L509.1000, L3300.0960 ####[facility] [address] [place], [address] T PROT 6.8 g/dL Normal 6.4-8.2 [facility] Comment on above: Performed By: #### L 501.9985, L506.1000, L100.0100, L500.4050, L509.1000, L3300.0960 ####[facility] [address] [place], [address] Urea nitrogen [Mass/Vol] 42 mg/dL High 7-18 [facility] Comment on above: Performed By: #### L 501.9985, L506.1000, L100.0100, L500.4050, L509.1000, L3300.0960 ####[facility] [address] [place], [address] Consultation - Nephrologyon 07-24-2024 Consultation - Nephrology Normal [facility] Creatinine, Urine (random)on 07-24-2024 UR CREAT 78.60 mg/dL Normal NO RANGE EST. [facility] Comment on above: Performed By: #### L 501.5500, L501.1200 ####[facility] [address] [place], [address] D-Dimer Quantitative (DVT/PE )on 09-21-2024 D-DIMER QUANT 2.82 FEU/ug/m Invalid Interpretation Code 0.27-0.49 [facility] Comment on above: Result Comment: D-Di vera ELEVATED (>0.49): Additional studies and clinicalassessments are indicated to conclude diagnosis of:Deep Vein Thrombosis (DVT) or Pulmonary Embolism (PE)CRITICAL VALUE CALLED TO GFHTKAHDV11/21/24 0038 Ana Rosa Andrew.RESULTS READ BACK BY SAME. Performed By: #### L 503.6030, L501.2300, L501.3620, L509.7000, L101.9900, L501.5200, L503.6550, L501.6710, L504.2610, L503.6620, L300.8000 ####[facility] [address] [place], [place], [address] Erythrocyte Sed Rateon 07-24 SED RATE 21 mm/hr Normal 0-30 [facility] Comment on above: Performed By: #### L 503.6030, L501.2300, L501.3620, L509.7000, L101.9900, L501.5200, L503.6550, L501.6710, L504.2610, L503.6620, L300.8000 ####[facility] [address] [place], [place], [id number] Ferritinon 07-24-2024 Ferritin [Mass/Vol] 106 ng/mL Normal 8-252 [facility] Comment on above: Order Comment: Comme nts: May add to ED labsComments: add to ED labsComments: may add to ED labsmay add to ED labs Performed By: #### L 503.6030, L501.2300, L501.3620, L509.7000, L101.9900, L501.5200, L503.6550, L501.6710, L504.2610, L503.6620, L300.8000 ####[facility] [address] [place], [place], [id number] Hemoglobin A1con 07-24-2024 HbA1c (Bld) [Mass fraction] 5.7 % High 3.8-5.6 [facility] Comment on above: Result Comment: Norm al < 5.7 % Prediabetic 5.7 - 6.4 % Diabetic >or= 6.5 % Please note range changes. Performed By: #### L 501.9985, L506.1000, L100.0100, L500.4050, L509.1000, L3300.0960 ####[facility] [address] [place], [address] Iron+Iron Binding Capacityon 07-24-2024 Iron [Mass/Vol] 24 ug/dL Low 50-170 [facility] Comment on above: Order Comment: Comme nts: May add to ED labsComments: add to ED labsComments: may add to ED labsmay add to ED labs Performed By: #### L 503.6030, L501.2300, L501.3620, L509.7000, L101.9900, L501.5200, L503.6550, L501.6710, L504.2610, L503.6620, L300.8000 ####[facility] [address] [place], [place], [id number]) IRON SATURATION 10.3 Low 15.0-55.0 [facility] Comment on above: Order Comment: Comme nts: May add to ED labsComments: add to ED labsComments: may add to ED labsmay add to ED labs Performed By: #### L 503.6030, L501.2300, L501.3620, L509.7000, L101.9900, L501.5200, L503.6550, L501.6710, L504.2610, L503.6620, L300.8000 ####[facility] [address] [place], [address] TIBC 233 ug/dL Low 250-450 [facility] Comment on above: Order Comment: Comme nts: May add to ED labsComments: add to ED labsComments: may add to ED labsmay add to ED labs Performed By: #### L 503.6030, L501.2300, L501.3620, L509.7000, L101.9900, L501.5200, L503.6550, L501.6710, L504.2610, L503.6620, L300.8000 ####[facility] [address] [place], [address] Kidney and Bladderon 024 Kidney and Bladder Normal [facility] L501.2276on 07-24-2024 Ionized Calcium 3.39 mg/dL Low 4.36-5.20 [facility] Comment on above: Performed By: #### L 501.2449 ####[facility] [address] [place], [address] LDHon 07-24-2024 LDH 334 U/L High 84-246 [facility] Comment on above: Order Comment: Comme nts: May add to ED labsComments: add to ED labsComments: may add to ED labsmay add to ED labs Performed By: #### L 503.6030, L501.2300, L501.3620, L509.7000, L101.9900, L501.5200, L503.6550, L501.6710, L504.2610, L503.6620, L300.8000 ####[facility] [address] [place], [address] Liver Profileon 07-24-2024 Albumin [Mass/Vol] 2.7 g/dL Low 3.2-5.0 [facility] Comment on above: Performed By: #### L 500.3400 ####[facility] [address] [place], [address] ALK P 75 U/L Normal 45-117 [facility] Comment on above: Performed By: #### L 500.3400 ####[facility] [address] [place], [address] ALT [Catalytic activity/Vol] 17 U/L Normal 13-56 [facility] Comment on above: Performed By: #### L 500.3400 ####[facility] [address] [place], [address] AST [Catalytic activity/Vol] 17 U/L Normal 15-37 [facility] Comment on above: Performed By: #### L 500.3400 ####[facility] [address] [place], [address] Bilirubin [Mass/Vol] 0.20 mg/dL Normal 0.20-1.00 [facility] Comment on above: Result Comment: For patients on eltrombopag therapy, use of Dimension Redrock TBIL is not recommended. Performed By: #### L 500.3400 ####[facility] [address] [place], [address] Bilirubin.direct [Mass/Vol] 0.10 mg/dL Normal 0.00-0.30 [facility] Comment on above: Performed By: #### L 500.3400 ####[facility] [address] [place], [address] Globulin (S) [Mass/Vol] 3.7 g/dL Normal 2.2-4.2 [facility] Comment on above: Performed By: #### L 500.3400 ####[facility] [address] [place], [address] T PROT 6.4 g/dL Normal 6.4-8.2 [facility] Comment on above: Performed By: #### L 500.3400 ####[facility] [address] [place], [address] M100.678on 07-24-2024 M100.678 Normal [facility] Comment on above: Performed By: #### M 100.678 ####[facility] [address] [place], [address] Magnesiumon 07-24-2024 Magnesium [Mass/Vol] 1.6 mg/dL Normal 1.6-2.6 [facility] Comment on above: Order Comment: Comme nts: May add to ED labsComments: add to ED labsComments: may add to ED labsmay add to ED labs Performed By: #### L 503.6030, L501.2300, L501.3620, L509.7000, L101.9900, L501.5200, L503.6550, L501.6710, L504.2610, L503.6620, L300.8000 ####[facility] [address] [place], [address] PTHINon 07-24-2024 PTH 1027.8 pg/mL High 18.4-80.1 [facility] Comment on above: Performed By: #### L 501.9985, L506.1000, L100.0100, L500.4050, L509.1000, L3300.0960 ####[facility] [address] [place], [address] Phosphoruson 07-24-2024 Phosphate [Mass/Vol] 5.0 mg/dL High 2.5-4.9 [facility] Comment on above: Order Comment: Comme nts: May add to ED labsComments: add to ED labsComments: may add to ED labsmay add to ED labs Performed By: #### L 503.6030, L501.2300, L501.3620, L509.7000, L101.9900, L501.5200, L503.6550, L501.6710, L504.2610, L503.6620, L300.8000 ####[facility] [address] [place], [address] Procalcitoninon 07-24-2024 Procalcitonin 0.11 ng/mL High 0.00-0.09 [facility] Comment on above: Result Comment: A pr [...] ng/mL are obtained. Performed By: #### L 503.6030, L501.2300, L501.3620, L509.7000, L101.9900, L501.5200, L503.6550, L501.6710, L504.2610, L503.6620, L300.8000 ####[facility] [address] [place], [place], [address] Stool Occult Blood iFOBon STOB Positive Normal [facility] Comment on above: Performed By: #### M 100.7900 ####[facility] [address] [place], [place], [address] Type AND Screenon 07-24-2024 Ab SCREEN GEL TNP Normal [facility] Comment on above: Order Comment: CMV N EG? NNumber of units to transfuse: 1Is pt's Hgb is = to 7.0 mg/dl or Hct </= 21%? YReason for Ordering Blood: ChronicAre the blood/blood products to be transfused? YIs the patient having/had surgery? NHas pt arrived? YWhen ReadyNY Result Comment: AMENDED REPORT 07/24/24 0141: Antibody Screen previously reported as:NEGATIVE Performed By: #### B SATHYA, BTS, K54646-5 ####[facility] [address] [place], [address] Urinalysis, Completeon 07-24 BACTERIA 1+ /hpf Normal None Seen [facility] Comment on above: Order Comment: CLEAN CATCH Performed By: #### L 400.0001 ####[facility] [address] [place], [address] WBC 0-5 SEEN Normal 0-5 [facility] Comment on above: Order Comment: CLEAN CATCH Performed By: #### L 400.0001 ####[facility] [id number] [place], [address] Urine Sodiumon 07-24-2024 Sodium (U) [Moles/Vol] 23 mmol/L Normal Not Establ. [facility] [place] Comment on above: Performed By: #### L 501.5500, L501.1200 ####[facility] [id number] [place], [address] Vitamin D,25 Hydroxyon 07-24 Vitamin D 25-OH 11.5 ng/mL Normal [facility] Comment on above: Result Comment: Greta min D 25(OH) Status Range Deficiency <20 ng/mL (50nmol/L) Insufficiency 20 - 30 ng/mL (50 - 75 nmol/L) Sufficiency 30 - 100 ng/mL (75 - 250 nmol/L) Toxicity >100 ng/mL (>250 nmol/L) Performed By: #### L 501.9985, L506.1000, L100.0100, L500.4050, L509.1000, L3300.0960 ####[facility] [id number] [place], [address] 12 Lead EKGon 07-23-2024 12 Lead EKG Normal [facility] BRCon 07-23-2024 RC Normal [facility] Comment on above: Result Comment: [id number] OP RC TRANSFUSED 07/26/24 [id number] OP RC TRANSFUSED 07/26/24 0424 Performed By: #### B RC ####[facility] [address] [place], [address] Result Comment: [id number] OP RC TRANSFUSED 07/24/24 0306 Performed By: #### B RC, BTS, [id number] ####[facility] [address] [place], [address] Basic Metabolic Profile (BMP )on 07-23-2024 BUN/CRE 12.0 RATIO Normal 10-20 [facility] Comment on above: Order Comment: 'TROP ' Serial specimen #1, #2 or #3: 1 Performed By: #### L 100.0100, L500.2500, L501.4020 ####[facility] [address] [place], [address] CA,Total 5.4 mg/dL Invalid Interpretation Code 8.5-10.1 [facility] Comment on above: Order Comment: 'TROP ' Serial specimen #1, #2 or #3: 1 Result Comment: Crit ical Result(s) Called at: 23:18:14 07/23/2024 by:Ana Rosa Andrew to LSparr. Results read back by same. Performed By: #### L 100.0100, L500.2500, L501.4020 ####[facility] [address] [place], [address] Chloride [Moles/Vol] 101 mmol/L Normal 98-107 [facility] Comment on above: Order Comment: 'TROP ' Serial specimen #1, #2 or #3: 1 Performed By: #### L 100.0100, L500.2500, L501.4020 ####[facility] [address] [place], [address] CO2 [Moles/Vol] 29.0 mmol/L Normal 21.0-32.0 [facility] Comment on above: Order Comment: 'TROP ' Serial specimen #1, #2 or #3: 1 Performed By: #### L 100.0100, L500.2500, L501.4020 ####[facility] [address] [place], [address] Creatinine [Mass/Vol] 3.66 mg/dL High 0.55-1.02 [facility] Comment on above: Order Comment: 'TROP ' Serial specimen #1, #2 or #3: 1 Result Comment: The validity of the calculated GFR GFRAA in patients over70 years has not been determined. Clinical correlation isessential. Performed By: #### L 100.0100, L500.2500, L501.4020 ####[facility] [address] [place], [address] EST GFR - AA 16 mL/min Low >60 [facility] Comment on above: Order Comment: 'TROP ' Serial specimen #1, #2 or #3: 1 Result Comment: Afri can Dominican GFR Calc Performed By: #### L 100.0100, L500.2500, L501.4020 ####[facility] [address] [place], [address] GAP 4 Low 5-15 [facility] Comment on above: Order Comment: 'TROP ' Serial specimen #1, #2 or #3: 1 Performed By: #### L 100.0100, L500.2500, L501.4020 ####[facility] [address] [place], [address] GFR/1.73 sq M.predicted among non-blacks MDRD (S/P/Bld) [Vol rate/Area] 13 mL/min/{1.73_m2} Low >60 [facility] Comment on above: Order Comment: 'TROP ' Serial specimen #1, #2 or #3: 1 Result Comment: Non- GFR Calc Performed By: #### L 100.0100, L500.2500, L501.4020 ####[facility] [address] [place], [address] Glucose [Mass/Vol] 146 mg/dL High 74-106 [facility] Comment on above: Order Comment: 'TROP ' Serial specimen #1, #2 or #3: 1 Result Comment: Fast ing Glucose result greater than or equal to 126 mg/dLsuggests DIABETES MELLITUS per A.D.A. criteria. Performed By: #### L 100.0100, L500.2500, L501.4020 ####[facility] [address] [place], [address] Potassium [Moles/Vol] 5.4 mmol/L High 3.5-5.1 [facility] Comment on above: Order Comment: 'TROP ' Serial specimen #1, #2 or #3: 1 Performed By: #### L 100.0100, L500.2500, L501.4020 ####[facility] [address] [place], [address] Sodium [Moles/Vol] 134 mmol/L Low 136-145 [facility] Comment on above: Order Comment: 'TROP ' Serial specimen #1, #2 or #3: 1 Performed By: #### L 100.0100, L500.2500, L501.4020 ####[facility] [address] [place], [address] Urea nitrogen [Mass/Vol] 44 mg/dL High 7-18 [facility] Comment on above: Order Comment: 'TROP ' Serial specimen #1, #2 or #3: 1 Performed By: #### L 100.0100, L500.2500, L501.4020 ####[facility] [address] [place], [address] Bedside Glucoseon 07-23-2024 FINGERSTICK GLU 120 mg/dL High 74-106 [facility] Comment on above: Result Comment: SHELLY ENGEL OF PATIENT CARE PER NURSING PROTOCOL Performed By: #### L 501.080 ####[facility] [address] [place], [address] FINGERSTICK GLU 163 mg/dL High 74-106 [facility] Comment on above: Result Comment: SHELLY ENGEL OF PATIENT CARE PER NURSING PROTOCOL Performed By: #### L 501.080 ####[facility] [address] [place], [address] CBC W/Diff, Automatedon 09-2 0-2023 Absolute Lymph 1.37 X10 3/uL Normal 0.83-4.51 [facility] Comment on above: Performed By: #### L 100.0100, L500.2500, L501.4020 ####[facility] [address] [place], [address] Absolute Neut 4.2 X10 3/uL Normal 2.0-7.7 [facility] Comment on above: Performed By: #### L 100.0100, L500.2500, L501.4020 ####[facility] [address] [place], [address] Basophils/100 WBC (Bld) 0.5 % Normal 0-1 [facility] Comment on above: Performed By: #### L 100.0100, L500.2500, L501.4020 ####[facility] [address] [place], [address] Eosinophils/100 WBC (Bld) 4.6 % Normal 0-5 [facility] Comment on above: Performed By: #### L 100.0100, L500.2500, L501.4020 ####[facility] [address] [place], [address] Erythrocyte distribution width (RBC) [Ratio] 13.5 % Normal 11.6-14.6 [facility] Comment on above: Performed By: #### L 100.0100, L500.2500, L501.4020 ####[facility] [address] [place], [address] Hematocrit (Bld) [Volume fraction] 24.0 % Low 37-47 [facility] Comment on above: Performed By: #### L 100.0100, L500.2500, L501.4020 ####[facility] [address] [place], [address] Hemoglobin (Bld) [Mass/Vol] 7.0 g/dL Low 12.0-15.0 [facility] Comment on above: Performed By: #### L 100.0100, L500.2500, L501.4020 ####[facility] [address] [place], [address] IG% 0.600 Normal 0.0-0.9 [facility] Comment on above: Result Comment: IG% - Immature Granulocytes (promyelocytes, myelocytes andmetamyelocytes) > 1% indicates that a LEFT SHIFT is Present. Performed By: #### L 100.0100, L500.2500, L501.4020 ####[facility] [address] [place], [address] Lymphocytes/100 WBC (Bld) 21.1 % Normal 19-41 [facility] Comment on above: Performed By: #### L 100.0100, L500.2500, L501.4020 ####[facility] [address] [place], [address] MCH (RBC) [Entitic mass] 28.3 pg Normal 27.0-32.0 [facility] Comment on above: Performed By: #### L 100.0100, L500.2500, L501.4020 ####[facility] [address] [place], [address] MCHC (RBC) [Mass/Vol] 29.2 g/dL Low 32-36 [facility] Comment on above: Performed By: #### L 100.0100, L500.2500, L501.4020 ####[facility] [address] [place], [address] MCV (RBC) [Entitic vol] 97.2 fL Normal 81-99 [facility] Comment on above: Performed By: #### L 100.0100, L500.2500, L501.4020 ####[facility] [address] [place], [address] Monocytes/100 WBC (Bld) 7.7 % Normal 0-10 [facility] Comment on above: Performed By: #### L 100.0100, L500.2500, L501.4020 ####[facility] [address] [place], [address] Neutrophils/100 WBC (Bld) 65.5 % Normal 47-70 [facility] Comment on above: Performed By: #### L 100.0100, L500.2500, L501.4020 ####[facility] [address] [place], [address] Nucleated RBC (Bld) [#/Vol] 0 10*3/uL Normal 0-5 [facility] Comment on above: Performed By: #### L 100.0100, L500.2500, L501.4020 ####[facility] [address] [place], [address] Platelet mean volume (Bld) [Entitic vol] 10.2 fL Normal 6.2-12.0 [facility] Comment on above: Performed By: #### L 100.0100, L500.2500, L501.4020 ####[facility] [address] [place], [address] Platelets (Bld) [#/Vol] 182 10*3/uL Normal 150-450 [facility] Comment on above: Performed By: #### L 100.0100, L500.2500, L501.4020 ####[facility] [address] [place], [address] RBC (Bld) [#/Vol] 2.47 10*6/uL Low 4.2-5.4 [facility] Comment on above: Performed By: #### L 100.0100, L500.2500, L501.4020 ####[facility] [address] [place], [address] RDW SD 48.6 fl High 35.1-43.9 [facility] Comment on above: Performed By: #### L 100.0100, L500.2500, L501.4020 ####[facility] [address] [place], [address] WBC (Bld) [#/Vol] 6.5 10*3/uL Normal 4.4-11.0 [facility] Comment on above: Performed By: #### L 100.0100, L500.2500, L501.4020 ####[facility] [address] [place], [address] Chest PA and Lateralon 07-23 Chest PA and Lateral Normal [facility] Emergency Department Summary on 07-23-2024 Emergency Department Summary Normal [facility] H AND P Exam - Hospitaliston 07-23-2024 H&P Exam - Hospitalist Normal [facility] L501.4020on 07-23-2024 TROPONIN-I HS 30 pg/mL Normal 3.0-54.0 [facility] Comment on above: Order Comment: 'TROP ' Serial specimen #1, #2 or #3: 1 Result Comment: Plea se Note: New Test Units and Gender Specific Reference Ranges. For more information see Policy Stat Procedure Redrock High Sensitivity Troponin (TNIH) and attachments. Performed By: #### L 100.0100, L500.2500, L501.4020 ####[facility] [address] [place], [address] Urinalysis, Completeon 07-23 EPI,SQUAMOUS 0 SEEN Normal 5-10 [facility] Comment on above: Order Comment: CLEAN CATCH Performed By: #### L 400.0001 ####[facility] [address] [place], [address] Mucus Ql (Urine sed) 0 SEEN Normal [facility] Comment on above: Order Comment: CLEAN CATCH Performed By: #### L 400.0001 ####[facility] [address] [place], [address] RBC 0 SEEN Normal 0-5 [facility] Comment on above: Order Comment: CLEAN CATCH Performed By: #### L 400.0001 ####[facility] [address] [place], [place], [address] Office Visit Reporton 2023 Office Visit Report Normal [facility] Basophil percentageOrdered B y: Christy Bradley on 01-15-2024 Basophil percentage 3.7 mg/dL 2.5-4.9 [facility] Bilirubin [Mass/Vol] 0.50 mg/dL 0.20-1.00 [facility] Comment on above: For patients on eltr ombopag therapy, use of Dimension Redrock TBIL is not recommended. Chloride [Moles/Vol] 105 mmol/L 98-107 [facility] Cholesterol [Mass/Vol] 145 mg/dL <200 [facility] Comment on above: <200 mg/dL Desirable 200-240 mg/dL Borderline >240 mg/dL High Risk Glucose [Mass/Vol] 180 mg/dL 74-106 [facility] Comment on above: Fasting Glucose resu lt greater than or equal to 126 mg/dL suggests DIABETES MELLITUS per A.D.A. criteria. Hemoglobin (Bld) [Mass/Vol] 11.4 g/dL 12.0-15.0 [facility] Potassium [Moles/Vol] 4.8 mmol/L 3.5-5.1 [facility] Protein [Mass/Vol] 6.8 g/dL 6.4-8.2 [facility] Sodium [Moles/Vol] 140 mmol/L 136-145 [facility] Triglyceride [Mass/Vol] 132 mg/dL <199 [facility] Comment on above: The drugs N-Acetylcy steine and Metamizole may falsely depress this assay.Serum Triglycerides Reference Interval Normal <150 mg/dL Borderline high 150 - 199 mg/dL High 200 - 499 mg/dL Very High > or = 500 mg/dL WBC (Bld) [#/Vol] 6.9 10*3/uL 4.4-11.0 [facility] Determination of erythrocyte mean corpuscular volume (MCV)Ordered By: Christy Huerta on 01-15-2024 MCV (RBC) [Entitic vol] 95.9 fL 81-99 [facility] Direct bilirubinOrdered By: Christy Huerta on 01-15-2024 Bilirubin.direct [Mass/Vol] 0.10 mg/dL 0.00-0.30 [facility] Erythrocyte distribution wid th ratioOrdered By: Christy Huerta on 01-15-2024 Erythrocyte distribution width (RBC) [Ratio] 12.3 % 11.6-14.6 [facility] Erythrocyte distribution wid th standard deviationOrdered By: Christy Huerta on 01-15-2024 Erythrocyte distribution width (RBC) [Entitic vol] 43.2 fL 35.1-43.9 [facility] Hematocrit Auto (Bld) [Volum e fraction]Ordered By: Christy Huerta on 01-15-2024 Hematocrit (Bld) [Volume fraction] 37.6 % 37-47 [facility] Laboratory - Chemistry and C hemistry - challengeOrdered By: Christy Huerta on 01-15-2024 Albumin/Globulin [Mass ratio] 0.9 {ratio} 0.9-2.4 [facility] ALP [Catalytic activity/Vol] 82 U/L 45-117 [facility] ALT [Catalytic activity/Vol] 14 U/L 13-56 [facility] Cholesterol in HDL [Mass/Vol] 59 mg/dL >40 [facility] Comment on above: The drugs N-Acetylcy steine and Metamizole may falsely depress this assay. Reference Range HDL <40 mg/dL Low HDL Cholesterol HDL >or= 60 mg/dL High HDL Cholesterol Cholesterol in LDL [Mass/Vol] 60 mg/dL 0-130 [facility] CO2 [Moles/Vol] 31.0 mmol/L 21.0-32.0 [facility] Cobalamin (Vitamin B12) [Mass/Vol] 753 pg/mL 211-911 [facility] Globulin (S) [Mass/Vol] 3.5 g/dL 2.2-4.2 [facility] Urea nitrogen/Creatinine [Mass ratio] 11.8 mg/mg 10-20 [facility] Laboratory - Hematology and Cell countsOrdered By: Christy Huerta on 01-15-2024 MCH (RBC) [Entitic mass] 29.1 pg 27.0-32.0 [facility] MCHC (RBC) [Mass/Vol] 30.3 g/dL 32-36 [facility] Platelet mean volume (Bld) [Entitic vol] 10.6 fL 6.2-12.0 [facility] Platelets (Bld) [#/Vol] 188 10*3/uL 150-450 [facility] No Panel InformationOrdered By: Christy Huerta on 01-15-2024 Estimated GFR (MDRD) Amer 22 mL/min >60 [facility] Comment on above: GFR Calc Estimated GFR (MDRD) Non-Af Amer 18 mL/min >60 [facility] Comment on above: Non- GFR Calc Parathyroid Hormone (Intact) 137.2 pg/mL 18.4-80.1 [facility] VLDL Cholesterol 26 mg/dL 5-40 [facility] RBC Auto (Bld) [#/Vol]Ordere d By: Christy Huerta on 01-15-2024 RBC (Bld) [#/Vol] 3.92 10*6/uL 4.2-5.4 [facility] Serum or plasma calcium lesly urement (mass/volume)Ordered By: Christy Huerta on 01-15-2024 Calcium [Mass/Vol] 9.1 mg/dL 8.5-10.1 [facility] Serum or plasma creatinine m easurement (mass/volume)Ordered By: Christy Huerta on 01-15-2024 Creatinine [Mass/Vol] 2.79 mg/dL 0.55-1.02 [facility] Comment on above: The validity of the calculated GFR & GFRAA in patients over 70 years has not been determined. Clinical correlation is essential. Serum or plasma thyroid stim ulating hormone (TSH) measurement (units/volume)Ordered By: Christy Huerta on 03-14-2024 TSH Qn 2.34 uIU/mL 0.358-3.74 [facility] Serum or plasma urea nitroge n measurement (mass/volume)Ordered By: Christy Huerta on 01-15-2024 Urea nitrogen [Mass/Vol] 33 mg/dL 7-18 [facility] Thin prep Papanicolaou smear with manual screeningOrdered By: Christy Huerta on 01-15-2024 Thin prep Papanicolaou smear with manual screening 3.3 g/dL 3.2-5.0 [facility] Thin prep Papanicolaou smear with manual screening 16 U/L 15-37 [facility] Thin prep Papanicolaou smear with manual screening 4 5-15 [facility] Laboratory - Hematology and Cell countson 12-03-2023 HbA1c (Bld) [Mass fraction] 8.6 % 4.2-6.3 [facility] Basophil percentageOrdered B y: Christy Huerta on 11-18-2023 Basophil percentage 3.3 mg/dL 2.5-4.9 [facility] Chloride [Moles/Vol] 108 mmol/L 98-107 [facility] Glucose [Mass/Vol] 359 mg/dL 74-106 [facility] Comment on above: Glucose result great er than or equal to 200 mg/dLsuggests DIABETES MELLITUS per A.D.A. criteria. Potassium [Moles/Vol] 5.6 mmol/L 3.5-5.1 [facility] Sodium [Moles/Vol] 139 mmol/L 136-145 [facility] Laboratory - Chemistry and C hemistry - challengeOrdered By: Christy Huerta on 11-18-2023 CO2 [Moles/Vol] 27.0 mmol/L 21.0-32.0 [facility] Urea nitrogen/Creatinine [Mass ratio] 18.5 mg/mg 10-20 [facility] No Panel InformationOrdered By: Christy Huerta on 11-18-2023 Estimated GFR (MDRD) Amer 22 mL/min >60 [facility] Comment on above: GFR Calc Estimated GFR (MDRD) Non-Af Amer 19 mL/min >60 [facility] Comment on above: Non- GFR Calc Serum or plasma calcium lesly urement (mass/volume)Ordered By: Christy Huerta on 11-18-2023 Calcium [Mass/Vol] 8.8 mg/dL 8.5-10.1 [facility] Serum or plasma creatinine m easurement (mass/volume)Ordered By: Christy Huerta on 11-18-2023 Creatinine [Mass/Vol] 2.75 mg/dL 0.55-1.02 [facility] Comment on above: The validity of the calculated GFR & GFRAA in patients over 70 years has not been determined. Clinical correlation is essential. Serum or plasma urea nitroge n measurement (mass/volume)Ordered By: Christy Huerta on 11-18-2023 Urea nitrogen [Mass/Vol] 51 mg/dL 7-18 [facility] Thin prep Papanicolaou smear with manual screeningOrdered By: Christy Huerta on 11-18-2023 Thin prep Papanicolaou smear with manual screening 2.9 g/dL 3.2-5.0 [facility] Bacteria identified Respirat ory culture Nom (Unsp spec)Ordered By: Jeanna Davis on 10-29-2023 Respiratory Culture Pseudomonas aeruginosa [facility] Respiratory Culture Staphylococcus aureus [facility] Respiratory Culture Pseudomonas aeruginosa [facility] Respiratory Culture Staphylococcus aureus [facility] Gram stain for investigation of transfusion reactionOrdered By: Jeanna Davis on 10-29-2023 Microscopic observation Gram stain Nom (Unsp spec) [facility] Microscopic observation Gram stain Nom (Unsp spec) [facility] 24 hour urine protein measur ement (mass/time)Ordered By: Christy Huerta on 10-13-2023 Protein (24H U) [Mass/Time] 2213.8 mg/24HR 0-151 [facility] 24 hour urine protein measur ement (mass/volume)Ordered By: Christy Huerta on 10-13-2023 Protein (24H U) [Mass/Vol] 177.1 mg/dL 0.0-11.8 [facility] Creatinine clearanceOrdered By: Christy Huerta on 10-13-2023 Creatinine renal clearance Unsp time (U+S/P) [Vol/Time] 21 ml/min 100-200 [facility] Culture, urineOrdered By: Aashish Huerta on 10-13-2023 Bacteria identified Cx Nom (U) Culture exhibits no growth. [facility] Bacteria identified Cx Nom (U) Culture exhibits no growth. [facility] Laboratory - Specimen inform ationOrdered By: Christy Huerta on 10-13-2023 Collection duration (U) 24.0 HOURS 24.0-24.0 [facility] Comment on above: *Additional results available. Contact laboratory/see report* No Panel InformationOrdered By: Christy Huerta on 10-13-2023 Estimated GFR (MDRD) Amer 25 mL/min >60 [facility] Comment on above: GFR Calc Estimated GFR (MDRD) Non-Af Amer 21 mL/min >60 [facility] Comment on above: Non- GFR Calc Timed Urine Volume 1250 mL [facility] Comment on above: *Additional results available. Contact laboratory/see report* Thin prep Papanicolaou smear with manual screeningOrdered By: Christy Huerta on 10-13-2023 Creatinine (U) [Mass/Vol] 2.5 mg/dL 0.6-1.0 [facility] Urine creatinine measurement (mass/volume)Ordered By: Christy Huerta on 10-13-2023 Creatinine (U) [Mass/Vol] 61.4 mg/dL NO RANGE EST. [facility] Basophil percentageOrdered B y: Christy Huerta on 10-09-2023 Basophil percentage 10-25 SEEN /hpf 0-5 [facility] Bilirubin Test strip Ql (U)O rdered By: Christy Huerta on 10-09-2023 Bilirubin Ql (U) Negative Negative [facility] Ketones Test strip Ql (U)Ord ered By: Christy Huerta on 10-09-2023 Ketones Ql (U) Negative Negative [facility] Mucus LM Ql (Urine sed)Order ed By: Christy Huerta on 10-09-2023 Mucus Ql (Urine sed) 0 SEEN /hpf [facility] Nitrite Test strip Ql (U)Ord ered By: Christy Huerta on 10-09-2023 Nitrite Ql (U) Negative Negative [facility] Protein Test strip Ql (U)Ord ered By: Christy Huerta on 10-09-2023 Protein Ql (U) 100 mg/dl Negative [facility] Squamous epithelial cells de tection in urine sediment by light microscopyOrdered By: Christy Huerta on 10-09-2023 Epithelial cells.squamous LM Ql (Urine sed) 0-5 SEEN /hpf 5-10 [facility] Urine blood detectionOrdered By: Christy Huerta on 10-09-2023 RBC Ql (U) 10 /ul Negative [facility] RBC Ql (U) 0-5 SEEN /hpf 0-5 [facility] Urine clarityOrdered By: Malcolm Huerta on 10-09-2023 Clarity (U) Sl. Cloudy Clear [facility] Urine color determinationOrd ered By: Christy Huerta on 10-09-2023 Color (U) Yellow Yellow [facility] Urine glucose detectionOrder ed By: Christy Huerta on 10-09-2023 Glucose Ql (U) 250 mg/dl Normal [facility] Urine leukocyte esterase det ection by dipstickOrdered By: Christy Huerta on 10-09-2023 Leukocyte esterase Test strip Ql (U) 100 /ul Negative [facility] Urine pHOrdered By: aMry Huerta on 10-09-2023 pH (U) 5.0 [pH] 5.0 - 8.0 [facility] Urine sediment bacteria coun t by microscopy (number/high power field)Ordered By: Christy Huerta on 10-09-2023 Bacteria LM.HPF (Urine sed) [#/Area] 0 /[HPF] None Seen [facility] Urine specific gravity measu rementOrdered By: Christy Huerta on 10-09-2023 Specific gravity (U) [Rel density] 1.015 1.002-1.030 [facility] Urobilinogen Auto test strip Ql (U)Ordered By: Christy Huerta on 10-09-2023 Urobilinogen Ql (U) Normal mg/dl Normal [facility] Basophil percentageOrdered B y: Christy Huerta on 10-06-2023 Basophil percentage 2.9 mg/dL 2.5-4.9 [facility] Chloride [Moles/Vol] 104 mmol/L 98-107 [facility] Glucose [Mass/Vol] 273 mg/dL 74-106 [facility] Comment on above: Glucose result great er than or equal to 200 mg/dLsuggests DIABETES MELLITUS per A.D.A. criteria. Potassium [Moles/Vol] 4.8 mmol/L 3.5-5.1 [facility] Sodium [Moles/Vol] 139 mmol/L 136-145 [facility] WBC (Bld) [#/Vol] 10.3 10*3/uL 4.4-11.0 [facility] Blood erythrocytes count (nu mber/volume)Ordered By: Christy Huerta on 10-06-2023 RBC (Bld) [#/Vol] 3.48 10*6/uL 4.2-5.4 [facility] Blood hemoglobin measurement (mass/volume)Ordered By: Christy Huerta on 10-06-2023 Hemoglobin (Bld) [Mass/Vol] 10.5 g/dL 12.0-15.0 [facility] Blood platelet mean volumeOr dered By: Christy Huerta on 10-06-2023 Platelet mean volume (Bld) [Entitic vol] 10.5 fL 6.2-12.0 [facility] Determination of erythrocyte mean corpuscular volume (MCV)Ordered By: Christy Huerta on 10-06-2023 MCV (RBC) [Entitic vol] 99.1 fL 81-99 [facility] Hematocrit Auto (Bld) [Volum e fraction]Ordered By: Christy Huerta on 10-06-2023 Hematocrit (Bld) [Volume fraction] 34.5 % 37-47 [facility] Laboratory - Chemistry and C hemistry - challengeOrdered By: Christy Huerta on 10-06-2023 CO2 [Moles/Vol] 30.0 mmol/L 21.0-32.0 [facility] Urea nitrogen/Creatinine [Mass ratio] 13.7 mg/mg 10-20 [facility] Laboratory - Hematology and Cell countsOrdered By: Christy Huerta on 10-06-2023 Erythrocyte distribution width (RBC) [Entitic vol] 45.4 fL 35.1-43.9 [facility] Erythrocyte distribution width (RBC) [Ratio] 12.6 % 11.6-14.6 [facility] MCH (RBC) [Entitic mass] 30.2 pg 27.0-32.0 [facility] MCHC Auto (RBC) [Mass/Vol]Or dered By: Christy Huerta on 10-06-2023 MCHC (RBC) [Mass/Vol] 30.4 g/dL 32-36 [facility] No Panel InformationOrdered By: Christy Huerta on 10-06-2023 Estimated GFR (MDRD) Amer 26 mL/min >60 [facility] Comment on above: GFR Calc Estimated GFR (MDRD) Non-Af Amer 22 mL/min >60 [facility] Comment on above: Non- GFR Calc Parathyroid Hormone (Intact) 53.6 pg/mL 18.4-80.1 [facility] Platelets bldOrdered By: Malcolm tania Bradley on 10-06-2023 Platelets (Bld) [#/Vol] 180 10*3/uL 150-450 [facility] Serum or plasma albumin lesly urement (mass/volume)Ordered By: Christy Huerta on 10-06-2023 Albumin [Mass/Vol] 2.9 g/dL 3.2-5.0 [facility] Serum or plasma calcium lesly urement (mass/volume)Ordered By: Christy Huerta on 10-06-2023 Calcium [Mass/Vol] 9.1 mg/dL 8.5-10.1 [facility] Serum or plasma creatinine m easurement (mass/volume)Ordered By: Christy Huerta on 10-06-2023 Creatinine [Mass/Vol] 2.41 mg/dL 0.55-1.02 [facility] Comment on above: The validity of the calculated GFR & GFRAA in patients over 70 years has not been determined. Clinical correlation is essential. Serum or plasma urea nitroge n measurement (mass/volume)Ordered By: Christy Huerta on 10-06-2023 Urea nitrogen [Mass/Vol] 33 mg/dL 7-18 [facility] Urine creatinine measurement (mass/volume)Ordered By: Christy Huerta on 10-06-2023 Creatinine (U) [Mass/Vol] 65.00 mg/dL NO RANGE EST. [facility] Urine protein measurement (m ass/volume)Ordered By: Christy Huerta on 10-06-2023 Protein (U) [Mass/Vol] 229.6 mg/dL 0.0-11.8 [facility] [place] Urine protein/creatinine mas s ratioOrdered By: Christy Huerta on 10-06-2023 Protein/Creatinine (U) [Mass ratio] 3532 mg/g CRE 0-200 [facility] Laboratory - Hematology and Cell countson 07-14-2023 HbA1c (Bld) [Mass fraction] 8.7 % 4.2-6.3 [facility] Basophil percentageOrdered B y: Christy Huerta on 06-19-2023 Basophil percentage 3.3 mg/dL 2.5-4.9 [facility] Chloride [Moles/Vol] 107 mmol/L 98-107 [facility] Glucose [Mass/Vol] 251 mg/dL 74-106 [facility] Comment on above: Glucose result great er than or equal to 200 mg/dLsuggests DIABETES MELLITUS per A.D.A. criteria. Potassium [Moles/Vol] 5.4 mmol/L 3.5-5.1 [facility] Sodium [Moles/Vol] 140 mmol/L 136-145 [facility] Laboratory - Chemistry and C hemistry - challengeOrdered By: Christy Huerta on 06-19-2023 CO2 [Moles/Vol] 32.0 mmol/L 21.0-32.0 [facility] Urea nitrogen/Creatinine [Mass ratio] 14.5 mg/mg 10-20 [facility] No Panel InformationOrdered By: Christy Huerta on 06-19-2023 Estimated GFR (MDRD) Amer 27 mL/min >60 [facility] Comment on above: GFR Calc Estimated GFR (MDRD) Non-Af Amer 22 mL/min >60 [facility] Comment on above: Non- GFR Calc Parathyroid Hormone (Intact) 118.0 pg/mL 18.4-80.1 [facility] Serum or plasma albumin lesly urement (mass/volume)Ordered By: Christy Huetra on 06-19-2023 Albumin [Mass/Vol] 3.0 g/dL 3.2-5.0 [facility] Serum or plasma calcium lesly urement (mass/volume)Ordered By: Christy Huerta on 06-19-2023 Calcium [Mass/Vol] 8.4 mg/dL 8.5-10.1 [facility] Serum or plasma creatinine m easurement (mass/volume)Ordered By: Christy Huerta on 06-19-2023 Creatinine [Mass/Vol] 2.34 mg/dL 0.55-1.02 [facility] Comment on above: The validity of the calculated GFR & GFRAA in patients over 70 years has not been determined. Clinical correlation is essential. Serum or plasma urea nitroge n measurement (mass/volume)Ordered By: Christy Huerta on 06-19-2023 Urea nitrogen [Mass/Vol] 34 mg/dL 7-18 [facility] Urine creatinine measurement (mass/volume)Ordered By: Christy Huerta on 06-19-2023 Creatinine (U) [Mass/Vol] 85.10 mg/dL NO RANGE EST. [facility] Urine protein measurement (m ass/volume)Ordered By: Christy Huerta on 06-19-2023 Protein (U) [Mass/Vol] 247.0 mg/dL 0.0-11.8 [facility] [place] Urine protein/creatinine mas s ratioOrdered By: Christy Huerta on 06-19-2023 Protein/Creatinine (U) [Mass ratio] 2902 mg/g CRE 0-200 [facility] Basophil percentageOrdered B y: Sin Lujan on 03-17-2023 Basophil percentage 3.4 mg/dL 2.5-4.9 [facility] Chloride [Moles/Vol] 100 mmol/L 98-107 [facility] Glucose [Mass/Vol] 151 mg/dL 74-106 [facility] Comment on above: Fasting Glucose resu lt greater than or equal to 126 mg/dL suggests DIABETES MELLITUS per A.D.A. criteria. Potassium [Moles/Vol] 5.1 mmol/L 3.5-5.1 [facility] Sodium [Moles/Vol] 137 mmol/L 136-145 [facility] Laboratory - Chemistry and C hemistry - challengeOrdered By: Sin Lujan on 03-17-2023 CO2 [Moles/Vol] 32.0 mmol/L 21.0-32.0 [facility] Magnesium [Mass/Vol] 2.5 mg/dL 1.6-2.6 [facility] Urea nitrogen/Creatinine [Mass ratio] 16.1 mg/mg 10-20 [facility] No Panel InformationOrdered By: Sin Lujan on 03-17-2023 Estimated GFR (MDRD) Amer 24 mL/min >60 [facility] Comment on above: GFR Calc Estimated GFR (MDRD) Non-Af Amer 20 mL/min >60 [facility] Comment on above: Non- GFR Calc Parathyroid Hormone (Intact) 39.8 pg/mL 18.4-80.1 [facility] Serum or plasma albumin lesly urement (mass/volume)Ordered By: Sin Lujan on 03-17-2023 Albumin [Mass/Vol] 3.3 g/dL 3.2-5.0 [facility] Serum or plasma calcium lesly urement (mass/volume)Ordered By: Sin Lujan on 03-17-2023 Calcium [Mass/Vol] 9.6 mg/dL 8.5-10.1 [facility] Serum or plasma creatinine m easurement (mass/volume)Ordered By: Sin Lujan on 03-17-2023 Creatinine [Mass/Vol] 2.61 mg/dL 0.55-1.02 [facility] Comment on above: The validity of the calculated GFR & GFRAA in patients over 70 years has not been determined. Clinical correlation is essential. Serum or plasma urea nitroge n measurement (mass/volume)Ordered By: Sin Lujan on 03-17-2023 Urea nitrogen [Mass/Vol] 42 mg/dL 7-18 [facility] Urine creatinine measurement (mass/volume)Ordered By: Sin Lujan on 03-17-2023 Creatinine (U) [Mass/Vol] 29.80 mg/dL NO RANGE EST. [facility] Urine protein measurement (m ass/volume)Ordered By: Sin Lujan on 03-17-2023 Protein (U) [Mass/Vol] 75.7 mg/dL 0.0-11.8 [facility] Urine protein/creatinine mas s ratioOrdered By: Sin Lujan on 03-17-2023 Protein/Creatinine (U) [Mass ratio] 2540 mg/g CRE 0-200 [facility] Basophil percentageOrdered B y: Dr. Lujan on 02-26-2023 Basophil percentage 4.1 mg/dL 2.5-4.9 [facility] Bilirubin [Mass/Vol] 0.40 mg/dL 0.20-1.00 [facility] Comment on above: For patients on eltr ombopag therapy, use of Dimension [employer] TBIL is not recommended. Chloride [Moles/Vol] 105 mmol/L 98-107 [facility] Glucose [Mass/Vol] 270 mg/dL 74-106 [facility] Comment on above: Glucose result great er than or equal to 200 mg/dLsuggests DIABETES MELLITUS per A.D.A. criteria. Potassium [Moles/Vol] 5.0 mmol/L 3.5-5.1 [facility] Protein [Mass/Vol] 6.9 g/dL 6.4-8.2 [facility] Sodium [Moles/Vol] 134 mmol/L 136-145 [facility] WBC (Bld) [#/Vol] 5.6 10*3/uL 4.4-11.0 [facility] Blood erythrocytes count (nu mber/volume)Ordered By: Dr. Lujan on 02-26-2023 RBC (Bld) [#/Vol] 4.10 10*6/uL 4.2-5.4 [facility] Blood hemoglobin measurement (mass/volume)Ordered By: Dr. Lujan on 02-26-2023 Hemoglobin (Bld) [Mass/Vol] 12.1 g/dL 12.0-15.0 [facility] Blood platelet mean volumeOr dered By: Dr. Lujan on 02-26-2023 Platelet mean volume (Bld) [Entitic vol] 10.2 fL 6.2-12.0 [facility] Determination of erythrocyte mean corpuscular volume (MCV)Ordered By: Dr. Lujan on 02-26-2023 MCV (RBC) [Entitic vol] 95.9 fL 81-99 [facility] Hematocrit Auto (Bld) [Volum e fraction]Ordered By: Dr. Lujan on 02-26-2023 Hematocrit (Bld) [Volume fraction] 39.3 % 37-47 [facility] Laboratory - Chemistry and C hemistry - challengeOrdered By: Dr. Lujan on 02-26-2023 ALP [Catalytic activity/Vol] 88 U/L 45-117 [facility] ALT [Catalytic activity/Vol] 16 U/L 13-56 [facility] CO2 [Moles/Vol] 26.0 mmol/L 21.0-32.0 [facility] Globulin (S) [Mass/Vol] 3.8 g/dL 2.2-4.2 [facility] Urea nitrogen/Creatinine [Mass ratio] 17.7 mg/mg 10-20 [facility] Laboratory - Hematology and Cell countsOrdered By: Dr. Lujan on 02-26-2023 Erythrocyte distribution width (RBC) [Entitic vol] 49.3 fL 35.1-43.9 [facility] Erythrocyte distribution width (RBC) [Ratio] 14.0 % 11.6-14.6 [facility] MCH (RBC) [Entitic mass] 29.5 pg 27.0-32.0 [facility] MCHC Auto (RBC) [Mass/Vol]Or dered By: Dr. Lujan on 02-26-2023 MCHC (RBC) [Mass/Vol] 30.8 g/dL 32-36 [facility] No Panel InformationOrdered By: Dr. Lujan on 02-26-2023 Estimated GFR (MDRD) Amer 29 mL/min >60 [facility] Comment on above: GFR Calc Estimated GFR (MDRD) Non-Af Amer 24 mL/min >60 [facility] Comment on above: Non- GFR Calc Thyroid Stimulating Hormone (TSH) 2.30 uIU/mL 0.358-3.74 [facility] Vitamin D 25-Hydroxy 54.6 ng/mL [facility] Comment on above: Vitamin D 25(OH) Sta tus Range Deficiency <20 ng/mL (50nmol/L) Insufficiency 20 - 30 ng/mL (50 - 75 nmol/L) Sufficiency 30 - 100 ng/mL (75 - 250 nmol/L) Toxicity >100 ng/mL (>250 nmol/L) No Panel InformationOrdered By: Dr. Huerta on 02-26-2023 Parathyroid Hormone (Intact) 110.4 pg/mL 18.4-80.1 [facility] Platelets bldOrdered By: Dr. Lujan on 02-26-2023 Platelets (Bld) [#/Vol] 217 10*3/uL 150-450 [facility] Serum or plasma albumin lesly urement (mass/volume)Ordered By: Dr. Lujan on 02-26-2023 Albumin [Mass/Vol] 3.1 g/dL 3.2-5.0 [facility] Serum or plasma albumin/glob ulin mass ratioOrdered By: Dr. Lujan on 02-26-2023 Albumin/Globulin [Mass ratio] 0.8 {ratio} 0.9-2.4 [facility] Serum or plasma calcium lesly urement (mass/volume)Ordered By: Dr. Lujan on 02-26-2023 Calcium [Mass/Vol] 8.7 mg/dL 8.5-10.1 [facility] Serum or plasma creatinine m easurement (mass/volume)Ordered By: Dr. Lujan on 02-26-2023 Creatinine [Mass/Vol] 2.20 mg/dL 0.55-1.02 [facility] Comment on above: The validity of the calculated GFR & GFRAA in patients over 70 years has not been determined. Clinical correlation is essential. Serum or plasma urea nitroge n measurement (mass/volume)Ordered By: Dr. Lujan on 02-26-2023 Urea nitrogen [Mass/Vol] 39 mg/dL 7-18 [facility] Thin prep Papanicolaou smear with manual screeningOrdered By: Dr. Lujan on 02-26-2023 Thin prep Papanicolaou smear with manual screening 15 U/L 15-37 [facility] Thin prep Papanicolaou smear with manual screening 3 5-15 [facility] Laboratory - Hematology and Cell countson 01-01-2023 HbA1c (Bld) [Mass fraction] 9.0 % [facility] Absolute lymphocyte counton 10-11-2022 Lymphocytes Auto (Unsp spec) [#/Vol] 2.65 10*3/uL 0.83-4.51 [facility] Work Phone: Basophil percentageon 2021 Amylase [Catalytic activity/Vol] 51 U/L 25-115 [facility] Work Phone: Basophils/100 WBC (Bld) 1.2 % 0-1 [facility] Work Phone: Bilirubin [Mass/Vol] 0.30 mg/dL 0.20-1.00 [facility] Work Phone: Comment on above: For patients on eltr ombopag therapy, use of Dimension [employer] TBIL is not recommended. Chloride [Moles/Vol] 101 mmol/L 98-107 [facility]: Cholesterol [Mass/Vol] 266 mg/dL <200 [facility] Work Phone: Comment on above: <200 mg/dL Desirable 200-240 mg/dL Borderline >240 mg/dL High Risk Eosinophils/100 WBC (Bld) 8.5 % 0-5 [facility] Work Phone: Glucose [Mass/Vol] 206 mg/dL 74-106 [facility] Work Phone: Comment on above: Glucose result great er than or equal to 200 mg/dLsuggests DIABETES MELLITUS per A.D.A. criteria. Neutrophils (Bld) [#/Vol] 3.7 10*3/uL 2.0-7.7 [facility] Work Phone: Neutrophils/100 WBC (Bld) 49.0 % 47-70 [facility] Work Phone: Potassium [Moles/Vol] 4.2 mmol/L 3.5-5.1 [facility] Work Phone: Protein [Mass/Vol] 6.9 g/dL 6.4-8.2 [facility] Work Phone: Sodium [Moles/Vol] 138 mmol/L 136-145 [facility] Work Phone: Triglyceride [Mass/Vol] 198 mg/dL <199 [facility] Work Phone: Comment on above: The drugs N-Acetylcy steine and Metamizole may falsely depress this assay.Serum Triglycerides Reference Interval Normal <150 mg/dL Borderline high 150 - 199 mg/dL High 200 - 499 mg/dL Very High > or = 500 mg/dL WBC (Bld) [#/Vol] 7.5 10*3/uL 4.4-11.0 [facility] Work Phone: Blood erythrocytes count (nu mber/volume)on 10-11-2022 RBC (Bld) [#/Vol] 4.53 10*6/uL 4.2-5.4 [facility] Work Phone: Blood hemoglobin measurement (mass/volume)on 10-11-2022 Hemoglobin (Bld) [Mass/Vol] 13.4 g/dL 12.0-15.0 [facility] Work Phone: Blood lymphocytes/100 leukoc yteson 10-11-2022 Lymphocytes/100 WBC (Bld) 35.2 % 19-41 [facility] Work Phone: Blood monocytes/100 leukocyt eson 10-11-2022 Monocytes/100 WBC (Bld) 5.8 % 0-10 [facility] Work Phone: Blood platelet mean volumeon 10-11-2022 Platelet mean volume (Bld) [Entitic vol] 10.5 fL 6.2-12.0 [facility] Work Phone: Determination of erythrocyte mean corpuscular volume (MCV)on 10-11-2022 MCV (RBC) [Entitic vol] 96.9 fL 81-99 [facility] Work Phone: Erythrocyte sedimentation ra darek 10-11-2022 ESR (Bld) [Velocity] 38 mm/h 0-30 [facility] Work Phone: Hematocrit Auto (Bld) [Volum e fraction]on 10-11-2022 Hematocrit (Bld) [Volume fraction] 43.9 % 37-47 [facility] Work Phone: INR in Blood by Coagulation assayon 10-11-2022 INR Coag (Bld) [Relative time] 0.9 {INR} [facility] Work Phone: Iron measurement (mass/mass) on 10-11-2022 Iron (Unsp spec) [Mass/Mass] 67 ug/dL 50-170 [facility] Work Phone: Laboratory - Chemistry and C hemistry - challengeon 10-11-2022 ALP [Catalytic activity/Vol] 93 U/L 45-117 [facility] Work Phone: ALT [Catalytic activity/Vol] 11 U/L 13-56 [facility] Work Phone: CO2 [Moles/Vol] 30.0 mmol/L 21.0-32.0 [facility] Work Phone: Globulin (S) [Mass/Vol] 3.8 g/dL 2.2-4.2 [facility] Work Phone: Lipase [Catalytic activity/Vol] 82 U/L 73-393 [facility] Work Phone: Urea nitrogen/Creatinine [Mass ratio] 16.2 mg/mg 10-20 [facility] Work Phone: Laboratory - Coagulationon 1 12-12-2021 aPTT Coag (Bld) [Time] 29.2 s 24.1-36.2 [facility] Work Phone: PT Coag (PPP) [Time] 12.2 s 11.7-14.9 [facility] Work Phone: Laboratory - Hematology and Cell countson 10-11-2022 Erythrocyte distribution width (RBC) [Entitic vol] 48.3 fL 35.1-43.9 [facility] Work Phone: Erythrocyte distribution width (RBC) [Ratio] 13.4 % 11.6-14.6 [facility] Work Phone: Immature granulocytes/100 WBC (Bld) 0.300 % 0.0-0.9 [facility] Work Phone: Comment on above: IG% - Immature Granu locytes (promyelocytes, myelocytes and metamyelocytes) > 1% indicates that a LEFT SHIFT is Present. MCH (RBC) [Entitic mass] 29.6 pg 27.0-32.0 [facility] Work Phone: Nucleated RBC/100 WBC (Bld) [Ratio] 0 % 0-5 [facility] Work Phone: MCHC Auto (RBC) [Mass/Vol]on 10-11-2022 MCHC (RBC) [Mass/Vol] 30.5 g/dL 32-36 [facility] Work [facility]: No Panel Informationon 10-11 Estimated GFR (MDRD) Amer 27 mL/min >60 [facility] Work Phone: Comment on above: GFR Calc Estimated GFR (MDRD) Non-Af Amer 22 mL/min >60 [facility] Work Phone: Comment on above: Non- GFR Calc Thyroid Stimulating Hormone (TSH) 1.67 uIU/mL 0.358-3.74 [facility] Work Phone: Vitamin D 25-Hydroxy 30.7 ng/mL [facility] Work Phone: Comment on above: Vitamin D 25(OH) Sta tus Range Deficiency <20 ng/mL (50nmol/L) Insufficiency 20 - 30 ng/mL (50 - 75 nmol/L) Sufficiency 30 - 100 ng/mL (75 - 250 nmol/L) Toxicity >100 ng/mL (>250 nmol/L) Platelets bldon 10-11-2022 Platelets (Bld) [#/Vol] 301 10*3/uL 150-450 [facility] Work Phone: Serum or plasma albumin lesly urement (mass/volume)on 10-11-2022 Albumin [Mass/Vol] 3.1 g/dL 3.2-5.0 [facility] Work Phone: Serum or plasma albumin/glob ulin mass ratioon 10-11-2022 Albumin/Globulin [Mass ratio] 0.8 {ratio} 0.9-2.4 [facility] Work Phone: Serum or plasma calcium lesly urement (mass/volume)on 10-11-2022 Calcium [Mass/Vol] 9.2 mg/dL 8.5-10.1 [facility] Work Phone: Serum or plasma cholesterol in HDL measurement (mass/volume)on 10-11-2022 Cholesterol in HDL [Mass/Vol] 64 mg/dL >40 [facility] Work Phone: Comment on above: The drugs N-Acetylcy steine and Metamizole may falsely depress this assay. Reference Range HDL <40 mg/dL Low HDL Cholesterol HDL >or= 60 mg/dL High HDL Cholesterol Serum or plasma cholesterol in VLDL measurement (mass/volume)on 10-11-2022 Cholesterol in VLDL [Mass/Vol] 40 mg/dL 5-40 [facility] Work Phone: Serum or plasma creatinine m easurement (mass/volume)on 10-11-2022 Creatinine [Mass/Vol] 2.35 mg/dL 0.55-1.02 [facility] Work Phone: Comment on above: The validity of the calculated GFR & GFRAA in patients over 70 years has not been determined. Clinical correlation is essential. Serum or plasma ferritin allyn surement (mass/volume)on 10-11-2022 Ferritin [Mass/Vol] 27 ng/mL 8-252 [facility] Work Phone: Serum or plasma low density lipoprotein (LDL) cholesterol measurement (mass/volume)on 10-11-2022 Cholesterol in LDL [Mass/Vol] 162 mg/dL 0-130 [facility] Work Phone: Serum or plasma urea nitroge n measurement (mass/volume)on 10-11-2022 Urea nitrogen [Mass/Vol] 38 mg/dL 7-18 [facility] Work Phone: Thin prep Papanicolaou smear with manual screeningon 10-11-2022 Thin prep Papanicolaou smear with manual screening 8 U/L 15-37 [facility] Work Phone: Thin prep Papanicolaou smear with manual screening 7 5-15 [facility] Work Phone: Laboratory - Hematology and Cell countson 07-04-2022 HbA1c (Bld) [Mass fraction] 7.2 % [facility] Work Phone: NICOTINE+METABOLITES,Son [id number] 156 ng/mL Normal [facility] Comment on above: Performed By: #### H EPFP #### [facility] [id number] [place] [address] COTININE 194 ng/mL Normal [facility] Comment on above: Performed By: #### H EPFP #### [facility] [id number] [place] [id number] NICOTINE 7 ng/mL Normal [facility] Comment on above: Result Comment: Cons istent with use of a nicotine-containing product within 48 hours of specimen collection. Nicotine is metabolized to cotinine and [id number]. INTERPRETIVE INFORMATION: Nicotine and Metabolites, Serum or [...] developed and its performance characteristics determined by [facility]. It has not been cleared or approved by the [place] Food and Drug Administration. This test was performed in a CLIA certified laboratory and is intended for clinical purposes. Performed By: [facility] [address] [place] [id number] Child Support Agent: Fabrizio Cruz MD, PhD Performed By: #### H EPFP #### [facility] [address] [place] [id number] DRUG-PROFILE 9,BLOOD WITH RE FLEX TO CONFIRMATIONon 05-31-2022 AMPHETAMINES SCREEN Negative Normal Cutoff 20 [facility] Comment on above: Performed By: #### H EPFP #### [facility] [address] [place] [address] BARBITURATES SCREEN Negative Normal Cutoff 50 [facility] Comment on above: Performed By: #### H EPFP #### [facility] [address] [place] [address] BENZODIAZEPINES SCREEN Negative Normal Cutoff 50 [facility] Comment on above: Performed By: #### H EPFP #### [facility] [address] [place] [address] BUPRENORPHINE SCREEN Negative Normal Cutoff 1 [facility] Comment on above: Performed By: #### H EPFP #### [facility] [id number] [place] [address] CANNABINOID SCREEN Negative Normal Cutoff 20 [facility] Comment on above: Performed By: #### H EPFP #### [facility] [address] [place] [address] COCAINE SCREEN Negative Normal Cutoff 20 [facility] Comment on above: Performed By: #### H EPFP #### [facility] [id number] [place] [address] DRUG SCREEN COMMENT See Note Normal [facility] Comment on above: Result Comment: INTE [...] developed and its performance characteristics determined by [facility]. It has not been cleared or approved by the [place] Food and Drug Administration. This test was performed in a CLIA certified laboratory and is intended for clinical purposes. Performed By: [employer] [address] [place] [id number] Child Support Agent: Fabrizio Cruz MD, PhD Performed By: #### H EPFP #### [facility] [address] [place] [address] METHADONE SCREEN Negative Normal Cutoff 25 [facility] Comment on above: Performed By: #### H EPFP #### [facility] [address] [place] [address] METHAMPHETAMINES SCREEN Negative Normal Cutoff 20 [facility] Comment on above: Performed By: #### H EPFP #### [facility] [address] [place] [address] OPIATE SCREEN Negative Normal Cutoff 20 [facility] Comment on above: Performed By: #### H EPFP #### [facility] [address] [place] [address] OXYCODONE SCREEN Negative Normal Cutoff 20 [facility] Comment on above: Performed By: #### H EPFP #### [facility] [address] [place] [phone] PCP SCREEN Negative Normal Cutoff 10 [facility] Comment on above: Performed By: #### H EPFP #### [facility] [address] [place] [phone] T-SPOT TBon 05-30-2022 NIL[NEG]CONTROL SPOT COUNT Passed Normal [facility] Comment on above: Performed By: #### H EPFP #### [facility] [address] [place] [address] PANEL A SPOT COUNT 0 Normal [facility] Comment on above: Performed By: #### H EPFP #### [facility] [address] [place] [address] PANEL B SPOT COUNT 2 Normal [facility] Comment on above: Performed By: #### H EPFP #### [facility] [address] [place] [address] POS CONTROL SPOT COUNT Passed Normal [facility] Comment on above: Performed By: #### H EPFP #### [facility] [address] [place] [id number] T-SPOT.TB INTERP Negative Normal Normal Value: Negative [facility] Comment on above: Result Comment: A [...] test. Performed By: #### H EPFP #### [facility] [address] [place] [address] ABO/RH GROUP TESTon 05-28-20 ABO TYPE O Normal [facility] Comment on above: Performed By: #### H LAS1 #### [facility] [address] [place] [address] RH TYPE Positive Normal [facility] Comment on above: Performed By: #### H LAS1 #### [facility] [address] [place] [address] AUTOCROSSMATCH, FLOWon 05-28 AUTOCROSSMATCH, FLOW SEE SEPARATE REPORT Normal [facility] Comment on above: Result Comment: Test performed at [facility], 6th Floor [address] [place] [address] Performed By: #### U SWETHA #### [facility] [address] [facility] [place] [address] AUTOCROSSMATCH, FLOW Canceled Normal [facility] Comment on above: Order Comment: TEST AUTOCROSSMATCH, FLOW WAS CANCELLED, 05/28/2022 13:06 Result Comment: Test performed at [facility], 6th Floor [address] [place] [address] Performed By: #### H EPFP #### [facility] [address] [place] [phone] Blood Typing (ABO + Rho D)on 05-28-2022 ABO group Nom (Bld) O [facility] Work Phone: Rh immune globulin screen (Bld) [Interp] Positive MG-Transpl ant- [facility] 1800 Work Phone: Blood Urea Nitrogen, Serumon 05-28-2022 Urea nitrogen [Mass/Vol] 47 mg/dL above high threshold 6 - 23 MG-Transplant- [facility] 1800 Work Phone: C PEPTIDEon 05-28-2022 C PEPTIDE 0.1 ng/mL Low 0.7 - 3.9 [facility] Comment on above: Performed By: #### U SWETHA #### [facility] [address] [place] [address] C Peptide, Serumon C peptide [Mass/Vol] 0.1 ng/mL below low threshold 0.7 - 3.9 MG-Transplant- [facility] 1800 Work Phone: CBCon 05-28-2022 Erythrocyte distribution width (RBC) [Ratio] 13.5 % Normal 11.5 - 14.5 [facility] Comment on above: Performed By: #### U SWETHA #### [facility] [address] [place] [address] Hematocrit (Bld) [Volume fraction] 37.0 % Normal 36.0 - 46.0 [facility] Comment on above: Performed By: #### U SWETHA #### [facility] [address] [place] [address] Hemoglobin (Bld) [Mass/Vol] 11.3 g/dL Low 12.0 - 16.0 [facility] Comment on above: Performed By: #### U SWETHA #### [facility] [address] [place] [address] MCHC (RBC) [Mass/Vol] 30.5 g/dL Low 32.0 - 36.0 [facility] Comment on above: Performed By: #### U SWETHA #### [facility] [address] [place] [address] MCV (RBC) [Entitic vol] 101 fL High 80 - 100 [facility] Comment on above: Performed By: #### U SWETHA #### [facility] [address] [place] [address] NUCLEATED RBC 0.0 /100 WBC Normal 0.0-0.0 [facility] Comment on above: Performed By: #### U SWETHA #### [facility] [address] [place] [address] Platelets (Bld) [#/Vol] 240 10*3/uL Normal 150 - 450 [facility] Comment on above: Performed By: #### U SWETHA #### [facility] [address] [place] [address] RBC 3.66 x10E12/L Low 4.00 - 5.20 [facility] Comment on above: Performed By: #### U SWETHA #### [facility] [address] [place] [address] WBC (Bld) [#/Vol] 9.3 10*3/uL Normal 4.4 - 11.3 [facility] Comment on above: Performed By: #### U SWETHA #### [facility] [address] [place] [address] CMV IGGon 05-28-2022 CMV IGG AB Reactive Abnormal NONREACTIVE [facility] Comment on above: Performed By: #### H LAS1 #### [facility] [address] [place] [address] CMV IgGon 05-28-2022 CMV IgG Reactive Abnormal See Below MG-Transplant- [facility] 1800 Work Phone: Comment on above: SOURCE: Reference Ra nge: NONREACTIVE CREATININEon 05-28-2022 Creatinine [Mass/Vol] 2.19 mg/dL High 0.50 - 1.05 [facility] Comment on above: Performed By: #### H LAS1 #### [facility] [address] [place] [address] GFR/1.73 sq M.predicted among non-blacks MDRD (S/P/Bld) [Vol rate/Area] 25 mL/min/{1.73_m2} Abnormal >90 [facility] Comment on above: Result Comment: CALC ULATIONS OF ESTIMATED GFR ARE PERFORMED USING THE 2020 CKD-EPI STUDY REFIT EQUATION WITHOUT THE RACE VARIABLE FOR THE IDMS-TRACEABLE CREATININE METHODS. https://jasn.asnjournals.org/content/early/ASN.49153 69764 Performed By: #### H LAS1 #### [facility] [address] [place] [address] Creatinine, Serumon 05-28-20 Creatinine [Mass/Vol] 2.19 mg/dL above high threshold See Below MG-Transplant- [facility] [employer] Work Phone: Comment on above: Reference Range: 0.5 0 - 1.05 Creatinine, Serum 25 {mL/min/1.73m2} Abnormal >90 MG-Transplant- [facility] [employer] Work Phone: Comment on above: CALCULATIONS OF EMILIO MATED GFR ARE PERFORMED USING THE 2020 CKD-EPI STUDY REFIT EQUATION WITHOUT THE RACE VARIABLE FOR THE IDMS-TRACEABLE CREATININE METHODS.https://jasn.asnjournals.org/content/early/A SN.7105647368 EBV PANELon 05-28-2022 VCA IGM ANTIBODY Negative Normal NEGATIVE [facility] Comment on above: Performed By: #### E BVP1 #### [facility] [address] [place] [phone] EBV EA-D IGG ANTIBODY Negative Normal NEGATIVE [facility] Comment on above: Performed By: #### E BVP1 #### [facility] [address] [place] [address] EBV INTERPRETATION SEE BELOW Normal [facility] Comment on above: Result Comment: . EB V INTERPRETATION CHART . VCA-IGG VCA-IGM NA-IGG EA-IGG . PRIMARY ACUTE +/- +/- - +/- LATE ACUTE + +/- +/- +/- RECOVERING + - - + PREVIOUS INFECTION + - +/- - Performed By: #### E BVP1 #### [facility] [address] [place] [address] EBV NA-1 IGG ANTIBODY Positive Abnormal NEGATIVE [facility] Comment on above: Performed By: #### E BVP1 #### [facility] [address] [place] [address] VCA IGG ANTIBODY Positive Abnormal NEGATIVE [facility] Comment on above: Performed By: #### E BVP1 #### [facility] [address] [place] [address] HEMOGLOBIN A1Con 05-28-2022 Glucose [Mass/Vol] 194 mg/dL Normal [facility] Comment on above: Performed By: #### H EPFP #### [facility] [address] [place] [address] HbA1c (Bld) [Mass fraction] 8.4 % Abnormal [facility] Comment on above: Result Comment: Diag nosis of Diabetes-Adults Non-Diabetic: < or = 5.6% Increased risk for developing diabetes: 5.7-6.4% Diagnostic of diabetes: > or = 6.5% . Monitoring of Diabetes Age (y) Therapeutic Goal (%) Adults: >18 <7.0 Pediatrics: 13-18 <7.5 7-12 <8.0 0- 6 7.5-8.5 [employer]. Diabetes Care 33(S1), Nov 2009. Performed By: #### H EPFP #### [facility] [address] [place] [address] HEPATIC FUNCTION PANELon Albumin [Mass/Vol] 3.5 g/dL Normal 3.4 - 5.0 [facility] Comment on above: Performed By: #### H EPFP #### [facility] [address] [place] [address] ALP [Catalytic activity/Vol] 70 U/L Normal 33 - 136 [facility] Comment on above: Performed By: #### H EPFP #### [facility] [address] [place] [address] ALT [Catalytic activity/Vol] 12 U/L Normal 7 - 45 [facility] Comment on above: Result Comment: Lauren ents treated with Sulfasalazine may generate falsely decreased results for ALT. Performed By: #### H EPFP #### [facility] [address] [place] [address] AST [Catalytic activity/Vol] 15 U/L Normal 9 - 39 [facility] Comment on above: Performed By: #### H EPFP #### [facility] [address] [place] [address] Bilirubin [Mass/Vol] 0.3 mg/dL Normal 0.0 - 1.2 [facility] Comment on above: Performed By: #### H EPFP #### [facility] [address] [place] [address] [place] Bilirubin.indirect [Mass/Vol] 0.1 mg/dL Normal 0.0 - 0.3 [facility] Comment on above: Performed By: #### H EPFP #### [facility] [address] [place] [address] Protein [Mass/Vol] 6.0 g/dL Low 6.4 - 8.2 [facility] Comment on above: Performed By: #### H EPFP #### [facility] [address] [place] [address] HEPATITIS B CORE AB-TOTALon 05-28-2022 HEP. B CORE AB-TOTAL Non-Reactive Normal NONREACTIVE [facility] Comment on above: Result Comment: Resu lts from patients taking biotin supplements or receiving high-dose biotin therapy should be interpreted with caution due to possible interference with this test. Providers may contact their local laboratory for further information. Performed By: #### H BCRT #### [facility] [address] [place] [address] Lab Specimen Source Normal [facility] Comment on above: Performed By: #### H BCRT #### [facility] [address] [place] [address] Performed By: #### S YPHR #### [facility] [address] [place], [place] [id number] Performed By: #### H LAS1 #### [facility] [address] [place] [address] Performed By: #### U SWETHA #### [facility] [address] [place] [address] HEPATITIS B SURF ABon 2021 HEP B SURF AB <3.1 Normal <10 [facility] Comment on above: Result Comment: INTE RPRETIVE CRITERIA: <10 mIU/mL....NONREACTIVE >=10 mIU/mL...REACTIVE . Biotin interference may cause falsely decreased results. Patients taking a Biotin dose of up to 5 mg/day should refrain from taking Biotin for 24 hours before sample collection. Providers may contact their local laboratory for further information. Performed By: #### H LAS1 #### [facility] [address] [place] [address] HEPATITIS B SURFACE AGon HEP.B SURFACE AG Non-Reactive Normal NONREACTIVE [facility] Comment on above: Result Comment: Biot in interference may cause falsely decreased results. Patients taking a Biotin dose of up to 5 mg/day should refrain from taking Biotin for 24 hours before sample collection. Providers may contact their local laboratory for further information. Performed By: #### U SWETHA #### [facility] [address] [place] [address] HEPATITIS C ABon 05-28-2022 HEPATITIS C AB Non-Reactive Normal NONREACTIVE [facility] Comment on above: Result Comment: Resu lts from patients taking biotin supplements or receiving high-dose biotin therapy should be interpreted with caution due to possible interference with this test. Providers may contact their local laboratory for further information. Performed By: #### H LAS1 #### [facility] [address] [place] [address] HIV 1/2 ANTIGEN/ANTIBODY SCR EEN WITH REFLEX TO CONFIRMATIONon 05-28-2022 HIV 1/2 AG/AB SCREEN Non-Reactive Normal NONREACTIVE [facility] Comment on above: Result Comment: HIV Ag/Ab screen is performed using the [employer] HIV Ag/Ab Combo assay which detects the presence of HIV p24 antigen as well as antibodies to HIV-1 (Group M and O) and HIV-2. . No laboratory evidence of HIV infection. If acute HIV infection is suspected, consider testing for HIV RNA by PCR (viral load). Performed By: #### H LAS1 #### [facility] [address] [place] [address] HIV 1+2 Ab Qn (S) Non-Reactive See Below MG-Tr ansplant- [facility] 1800 Work Phone: Comment on above: [...] CLASS I AB SCREEN,FC SEE COMMENT Normal [facility] Comment on above: Result Comment: HLA CLASS I AB SCREEN,FLOW CYTOMETRY SEE SEPARATE REPORT. Test performed at [facility], 6th Floor [id number] [place] [address] Performed By: #### H LAS1 #### [facility] [address] [place] [phone] HLA CLASS I AB SCREEN,FC Canceled Normal [facility] Comment on above: Order Comment: TEST HLA CLASS I AB SCREEN,FC WAS CANCELLED, 05/28/2022 13:06 Performed By: #### H LAS1 #### [facility] [address] [place] [phone] HLA CLASS II AB SCREEN,FCon 05-28-2022 HLA CLASS II AB SCREEN,FC SEE COMMENT Normal [facility] Comment on above: Result Comment: HLA CLASS II AB SCREEN,FLOW CYTOMETRY SEE SEPARATE REPORT. Test performed at [facility], 6th Floor [address] [place] [address] Performed By: #### U SWETHA #### [facility] [address] [place] [phone] HLA CLASS II AB SCREEN,FC Canceled Normal [facility] Comment on above: Order Comment: TEST HLA CLASS II AB SCREEN,FC WAS CANCELLED, 05/28/2022 13:06 Performed By: #### H LAS1 #### [facility] [address] [place] [address] HLA-A,B,C LRon 05-28-2022 HLA-A LOCUS LR TYPE SEE COMMENT Normal [facility] Comment on above: Result Comment: HLA- A LOCUS, LOW RESOLUTION TYPE SEE SEPARATE REPORT. Performed By: #### H EPFP #### [facility] [address] [place] [address] HLA-B LOCUS LR TYPE SEE COMMENT Normal [facility] Comment on above: Result Comment: HLA- B LOCUS, LOW RESOLUTION TYPE SEE SEPARATE REPORT. Performed By: #### H EPFP #### [facility] [address] [place] [address] HLA-C LOCUS LR TYPE SEE COMMENT Normal [facility] Comment on above: Result Comment: HLA- C LOCUS, LOW RESOLUTION TYPE SEE SEPARATE REPORT. Test performed at [facility], 6th Floor [address] [place] [address] Performed By: #### H EPFP #### [facility] [address] [place] [address] HLA-A LOCUS LR TYPE Canceled Normal [facility] Comment on above: Order Comment: TEST HLA-A,B,C LR WAS CANCELLED, 05/28/2022 13:06 Performed By: #### H EPFP #### [facility] [address] [place] [address] HLA-B LOCUS LR TYPE Canceled Normal [facility] Comment on above: Order Comment: TEST HLA-A,B,C LR WAS CANCELLED, 05/28/2022 13:06 Performed By: #### H EPFP #### [facility] [address] [place] [address] HLA-C LOCUS LR TYPE Canceled Normal [facility] Comment on above: Order Comment: TEST HLA-A,B,C LR WAS CANCELLED, 05/28/2022 13:06 Performed By: #### H EPFP #### [facility] [address] [place] [address] HLA-DPB1 HR TYPINGon 022 HLA-DPB1 HR TYPING SEE COMMENT Normal [facility] Comment on above: Result Comment: HLA- DPB1 HIGH RESOLUTION TYPING SEE SEPARATE REPORT. Test performed at [facility], 6th Floor [address] [place] [address] Performed By: #### D PBHT #### [facility] [address] [place] [phone] HLA-DPB1 HR TYPING Canceled Normal [facility] Comment on above: Order Comment: TEST HLA-DPB1 HR TYPING WAS CANCELLED, 05/28/2022 13:06 Performed By: #### D PBHT #### [facility] [address] [place] [phone] HLA-DQB1 HR TYPINGon 022 HLA-DQB1 HR TYPING SEE COMMENT Normal [facility] Comment on above: Result Comment: HLA- DQB1 HIGH RESOLUTION TYPING SEE SEPARATE REPORT. Test performed at [facility], 6th Floor [address] [place] [address] Performed By: #### D QBHT #### [facility] [address] [place] [address] HLA-DQB1 HR TYPING Canceled Normal [facility] Comment on above: Order Comment: TEST HLA-DQB1 HR TYPING WAS CANCELLED, 05/28/2022 13:06 Performed By: #### H EPFP #### [facility] [address] [place] [id number] HLA-DRB1/3/4/5 AND DQB1 LR T YPINGon 05-28-2022 HLA-DRB1/3/4/5 & DQB1 LR TYPING SEE COMMENT Normal [facility] Comment on above: Result Comment: HLA- DRB1/3/4/5 AND DQB1 LOW RESOLUTION TYPING SEE SEPARATE REPORT. Test performed at [facility], 6th Floor [address] [place] [address] Performed By: #### H EPFP #### [facility] [address] [place] [address] HLA-DRB1/3/4/5 & DQB1 LR TYPING Canceled Normal [facility] Comment on above: Order Comment: TEST HLA-DRB1/3/4/5 AND DQB1 LR TYPING WAS CANCELLED, 05/28/2022 13:06 Performed By: #### H EPFP #### [facility] [address] [place] [address] Hemoglobin A1Con 05-28-2022 Glucose [Mass/Vol] 194 mg/dL MG-Tra nsplant- [facility] Work Phone: HbA1c (Bld) [Mass fraction] 8.4 % Abnormal MG-Transplant- [facility] Work Phone: Comment on above: Diagnosis of Diabete s-Adults Non-Diabetic: < or = 5.6% Increased risk for developing diabetes: 5.7-6.4% Diagnostic of diabetes: > or = 6.5%. Monitoring of Diabetes Age (y) Therapeutic Goal (%) Adults: >18 <7.0 Pediatrics: 13-18 <7.5 7-12 <8.0 0- 6 7.5-8.5 [employer]. Diabetes Care 33(S1), Nov 2009. Hepatic Function Panelon Albumin BCP dye [Mass/Vol] 3.5 g/dL 3.4 - 5.0 MG-Transplant- [facility] [employer] Work Phone: ALP [Catalytic activity/Vol] 70 U/L 33 - 136 MG-Transplant- [facility] [employer] Work Phone: ALT With P-5'-P [Catalytic activity/Vol] 12 U/L 7 - 45 MG-Transplant- [facility] [employer] Work Phone: Comment on above: Patients treated wit h Sulfasalazine may generate falsely decreased results for ALT. AST With P-5'-P [Catalytic activity/Vol] 15 U/L 9 - 39 MG-Transplant- [facility] [employer] Work Phone: Bilirubin [Mass/Vol] 0.3 mg/dL 0.0 - 1.2 MG-T ransplant- [facility] [employer] Work Phone: Bilirubin.direct [Mass/Vol] 0.1 mg/dL 0.0 - 0.3 MG-Transplant- [facility] [address] Work Phone: Protein [Mass/Vol] 6.0 g/dL below low threshold 6.4 - 8.2 MG-Transplant- [facility] 1800 Work Phone: Hepatitis B Core Antibody, T otalon 05-28-2022 Hepatitis B Core Antibody, Total Non-Reactive See Below MG-Transplant- [facility] Work Phone: Comment on above: SOURCE: Reference [...] Ag IA Ql <3.1 <10 MG-T ransplant- [facility] [place] [facility] Work Phone: Comment on above: SOURCE: INTERPRETIVE CRITERIA:<10 mIU/mL....NONREACTIVE >=10 mIU/mL...REACTIVE . Biotin interference may cause falsely decreased results. Patients taking a Biotin dose of up to 5 mg/day should refrain from taking Biotin for 24 hours before sample collection. Providers may contact their local laboratory for further information. Laboratory - Drug toxicology on 05-28-2022 Amphetamines Screen Ql Negative Cutoff 20 MG -Transplant- [facility] Work Phone: Barbiturates Screen Ql Negative Cutoff 50 MG -Transplant- [facility] Work Phone: Benzodiazepines Screen Ql Negative Cutoff 50 MG-Transplant- [facility] Work Phone: Cannabinoids Screen Ql Negative Cutoff 20 MG -Transplant- [facility] Work Phone: Cocaine Screen Ql Negative Cutoff 20 MG-Mora splant- [facility] Work Phone: Methadone Screen Ql Negative Cutoff 25 MG-Tr ansplant- [facility] Work Phone: Methamphetamine Ql Negative Cutoff 20 MG-Tra nsplant- [facility] Work Phone: Opiates Screen Ql Negative Cutoff 20 MG-Mora splant- [facility] Work Phone: oxyCODONE Ql Negative Cutoff 20 MG-Transplan t- [facility] Work Phone: Phencyclidine Screen Ql Negative Cutoff 10 MG-Transplant- [facility] Work Phone: Laboratory - HLA antigenson 05-28-2022 HLA-A locus Nom (Bld/Tiss) SEE COMMENT [facility] 1800 Work Phone: Comment on above: HLA-A LOCUS, LOW RES OLUTION TYPE SEE SEPARATE REPORT. HLA-B locus Nom (Bld/Tiss) SEE COMMENT [facility] [address] Work Phone: Comment on above: HLA-B LOCUS, LOW RES OLUTION TYPE SEE SEPARATE REPORT. HLA-C locus Nom (Bld/Tiss) SEE COMMENT [facility] [employer] Work Phone: Comment on above: HLA-C LOCUS, LOW RES OLUTION TYPE SEE SEPARATE REPORT.Test performed at [facility], 6th Floor [address] [place] [id number] HLA-DP2 Ql (Bld/Tiss) SEE COMMENT [facility] 1800 Work Phone: Comment on above: HLA-DPB1 HIGH RESOLU TION TYPING SEE SEPARATE REPORT.Test performed at [facility], 6th Floor [address] [place] [address] HLA-DQB1 High resolution Nom (Bld/Tiss) SEE COMMENT [facility] [employer] Work Phone: Comment on above: HLA-DQB1 HIGH RESOLU TION TYPING SEE SEPARATE REPORT.Test performed at [facility], 6th Floor [address] [place] [address] HLA-DR+DQ Nom (Bld/Tiss) SEE COMMENT [facility]-Transplant- [facility] [place] 1800 Work Phone: Comment on above: HLA-DRB1/3/4/5 & DQB 1 LOW RESOLUTION TYPING SEE SEPARATE REPORT.Test performed at [facility], 6th Floor [address] [place] [address] HLA-A locus Nom (Bld/Tiss) Canceled [facility]-Transplant- [facility] [place] 1800 Work Phone: HLA-B locus Nom (Bld/Tiss) Canceled [facility]-Transplant- [facility] [place] [address] Work Phone: HLA-C locus Nom (Bld/Tiss) Canceled [facility]-Transplant- [facility] [place] [address] Work Phone: HLA-DP2 Ql (Bld/Tiss) Canceled MG- Transplant- [facility] Work Phone: HLA-DQB1 High resolution Nom (Bld/Tiss) Canceled [facility]-Transplant- [facility] [place] 1800 Work Phone: HLA-DR+DQ Nom (Bld/Tiss) Canceled [facility]-Transplant- [facility] [place] [address] Work Phone: Laboratory - Hematology and Cell countson 05-28-2022 Erythrocyte distribution width (RBC) [Ratio] 13.5 % See Below [facility]Trans[facility]- [facility] Work Phone: Comment on above: Reference [...] below low threshold See Below [facility]- [facility] Work Phone: Comment on above: Reference Range: 32. 0 - 36.0 MCV (RBC) [Entitic vol] 101 fL above high threshold 80 - 100 [facility]- [facility] Work Phone: Platelets (Bld) [#/Vol] 240 10*3/uL 150 - 450 [facility]- [facility] Work Phone: RBC (Bld) [#/Vol] 3.66 {x10E12/L} below low threshold See Below [facility]- [facility] Work Phone: Comment on above: Reference Range: 4.0 0 - 5.20 WBC (Bld) [#/Vol] 9.3 10*3/uL 4.4 - 11.3 MG-Tra nsplant- [facility] 1800 Work Phone: Laboratory - Microbiology an d Antimicrobial susceptibilityon 05-28-2022 EBV capsid IgG IA Qn (S) Positive Abnormal NEGATIVE MG-Transplant- [facility] 1800 Work Phone: EBV capsid IgM IA Qn (S) Negative NEGATIVE [facility]- [facility] Work Phone: EBV early IgM IA Qn (S) Negative NEGATIVE MG-Transplant- [facility] 1800 Work Phone: EBV nuclear IgG IA Qn (S) Positive Abnormal NEGATIVE [facility]-Transplant- [facility] 1800 Work Phone: Nicotine+Metabolites, Serumo n 05-28-2022 Cotinine [Mass/Vol] 194 ng/mL MG-Tr [facility] Work Phone: Nicotine [Mass/Vol] 7 ng/mL [facility] Work Phone: Comment on above: Consistent with use of a nicotine-containing product [id number] hours of specimen collection. Nicotine is metabolizedto cotinine and 2-CU-joxpzusu.INTERPRETIVE INFORMATION: Nicotine and Metabolites, Serum or Plasma, [...] developed and its performance characteristics determined by [facility] [facility]. It has not been cleared or approved by the US Food and Drug Administration. This test was performed in a CLIA certified laboratory and is intended for clinical purposes.Performed By: [facility] [place] [address] [id number] Director: Fabrizio Cruz MD, PhD [id number] e [Mass/Vol] 156 ng/mL [facility] Work Phone: No Panel Informationon 05-28 SEE COMMENT -Transplant - [facility] Work Phone: Comment on above: HLA CLASS I AB SCREE N,FLOW CYTOMETRY SEE SEPARATE REPORT.Test performed at [facility], [address]th Floor [address] [place] [address] HLA CLASS II AB SCRE EN,FLOW CYTOMETRY SEE SEPARATE REPORT.Test performed at [facility], 6th Floor [id number] [place] [address] SEE SEPARATE REPORT -Tr ansplant- [facility] 1800 Work Phone: Comment on above: Test performed at [facility], 6th Floor [address] [place] [address] Annotation comment [Interpretation] Narrative See Note [facility] Work Phone: Comment on above: INTERPRETIVE [...] developed and its performance characteristics determined by [facility] [facility]. It has not been cleared or approved by the US Food and Drug Administration. This test was performed in a CLIA certified laboratory and is intended for clinical purposes.Performed By: [facility] [place] [address] [id number] Director: Fabrizio Cruz MD, PhD 0.0 {/100_WBC} 0.0-0.0 [facility]-Transpl ant- [facility] Work Phone: SEE BELOW MG-Transplant- [facility] Work Phone: Comment on above: . EBV INTERPRETATION CHART. VCA-IGG VCA-IGM NA-IGG EA-IGG. PRIMARY ACUTE +/- +/- - +/-LATE ACUTE + +/- +/- +/-RECOVERING + - - +PREVIOUS INFECTION + - +/- - Canceled MG-Transplant- [facility] Work Phone: Comment on above: Test performed at [facility], 6th Floor [id number] [place] [address] Office VIsit (Pre-Transplant Surgery)on 05-28-2022 Follow-up visit Diagnosis/Problems Assessed Pre-transplant evaluation for kidney transplant (V72.83) (Z01.818) History of end stage renal disease (V13.09) (Z87.448) History of diabetes mellitus (V12.29) (Z86.39) History of chronic obstructive lung disease (V12.69) (Z87.09) History of coronary artery disease (V12.59) (Z86.79) History of Appendectomy History of Hysterectomy Current smoker (305.1) (F17.200) Has access to [employer] and [employer] Health insurance coverage Living Situation: Supportive [...] candidate. By signing my name below, I, Stan Ogibmari, attest that this documentation has been prepared under the direction and in the presence of Dr. Brady Burroughs. All medical record entries made by the Scribe were at my direction and personally dictated [...] Bird Lujan. Referral: Dr. Christy Huerta (tel: [phone] fax: [phone]). I am seeing SANDY DENG at the referring provider's request for surgical suitability for renal transplant candidate listing at [facility] [place]. History of Present Illness Comments: Ms. SANDY [...] [Mass/Vol] 5.3 mg/dL High 2.5 - 4.9 [facility] Comment on above: Result Comment: The performance characteristics of phosphorus testing in heparinized plasma have been validated by the individual laboratory site where testing is performed. Testing on heparinized plasma is not approved by the FDA; however, such approval is not necessary. Performed By: #### H LAS1 #### [facility] [address] [place] [address] Phosphorus, Serumon 05-28-20 22 Phosphate [Mass/Vol] 5.3 mg/dL above high threshold 2.5 - 4.9 [facility] Work Phone: Comment on above: The performance armond acteristics of phosphorus testing in heparinized plasma have been validated by the individual laboratory site where testing is performed. Testing on heparinized plasma is not approved by the FDA; however, such approval is not necessary. SYPHILIS SCREENING WITH REFL EXon 05-28-2022 SYPHILIS TOTAL AB Non-Reactive Normal NONREACTIVE [facility] Comment on above: Result Comment: No s ignificant level of Treponema pallidum antibody detected. Repeat testing in 2 to 4 weeks may be considered if early infection or incubating syphilis infection is suspected. Performed By: #### S YPHR #### [facility] [address] [place], [place] [id number] T. pallidum IgG+IgM IA Ql (S) Non-Reactive See Below [facility] Work Phone: Comment on above: SOURCE: Reference Ra nge: NONREACTIVENo significant level of Treponema pallidum antibody detected. Repeat testing in 2 to 4 weeks may be considered if early infection or incubating syphilis infection is suspected. T-SPOT. TBon 05-28-2022 T-SPOT. TB Passed [facility]Transplant- [facility] Work Phone: T-SPOT. TB 2 1 [facility] Work Phone: T-SPOT. TB 0 1 [facility]Transplant- [facility] Work Phone: Tobacco Screening.on 022 Fall risk assessment a) No falls within the last year [facility] Work Phone: Tobacco use status CPHS a) Yes MG-Transplant- [facility] Work Phone: Tobacco Screening. Yes MG-Tra nsplant- [facility] Work Phone: UA MICROSCOPICon 05-28-2022 Mucus Ql (Urine sed) 1+ /LPF Normal [facility] Comment on above: Performed By: #### U SWETHA #### [facility] [address] [place] [address] RBC 2 /HPF Normal 0-5 [facility] Comment on above: Performed By: #### U SWETHA #### [facility] [address] [place] [address] SQUAMOUS EPITH. CELLS 3 /HPF Normal [facility] Comment on above: Performed By: #### U SWETHA #### [facility] [address] [place] [address] WBC 12 /HPF Abnormal 0-5 [facility] Comment on above: Performed By: #### U SWETHA #### [facility] [address] [place] [address] UREA NITROGENon 05-28-2022 Urea nitrogen [Mass/Vol] 47 mg/dL High 6 - 23 [facility] Comment on above: Performed By: #### U SWETHA #### [facility] [address] [place] [address] URINALYSISon 05-28-2022 Appearance (U) CLEAR Normal CLEAR [facility] Comment on above: Performed By: #### H LAS1 #### [facility] [address] [place] [address] Bilirubin Ql (U) Negative Normal NEGATIVE [facility] Comment on above: Performed By: #### H LAS1 #### [facility] [address] [place] [address] Color (U) YELLOW Normal STRAW,YELLOW [facility] Comment on above: Performed By: #### H LAS1 #### [facility] [address] [place] [address] Glucose Ql (U) Negative Normal NEGATIVE [facility] Comment on above: Performed By: #### H LAS1 #### [facility] [address] [place] [address] Hemoglobin Ql (U) Negative Normal NEGATIVE [facility] Comment on above: Performed By: #### H LAS1 #### [facility] [address] [place] [address] Ketones Ql (U) Negative Normal NEGATIVE [facility] Comment on above: Performed By: #### H LAS1 #### [facility] [address] [place] [address] Leukocyte esterase Test strip Ql (U) SMALL (1+) Abnormal NEGATIVE [facility] Comment on above: Performed By: #### H LAS1 #### [facility] [address] [place] [address] Nitrite Ql (U) Negative Normal NEGATIVE [facility] Comment on above: Performed By: #### H LAS1 #### [facility] [address] [place] [address] pH (U) 5.0 [pH] Normal 5.0 - 8.0 [facility] Comment on above: Performed By: #### H LAS1 #### [facility] [address] [place] [address] Protein Ql (U) 100 (2+) Abnormal NEGATIVE [facility] Comment on above: Performed By: #### H LAS1 #### [facility] [address] [place] [address] Specific gravity (U) [Rel density] 1.016 Normal 1.005 - 1.035 [facility] Comment on above: Performed By: #### H LAS1 #### [facility] [address] [place] [address] Urobilinogen (U) [Mass/Vol] mg/dL Normal 0.0 - 1.9 [facility] Comment on above: Performed By: #### H LAS1 #### [facility] [address] [place] [address] Urinalysison 05-28-2022 Color (U) YELLOW See Below [facility] Work Phone: Comment on above: Reference Range: STR AW,YELLOW Glucose Ql (U) Negative NEGATIVE [facility]- [facility] Work Phone: Ketones Ql (U) Negative NEGATIVE [facility]- [facility] Work Phone: Leukocyte esterase Test strip Ql (U) SMALL (1+) Abnormal NEGATIVE [facility] Work Phone: pH (U) 5.0 [pH] 5.0 - 8.0 [facility] Work Phone: Protein (U) [Mass/Vol] 100 (2+) Abnormal NEGATIVE [facility] Work Phone: RBC (U) [#/Vol] Negative NEGATIVE MG-Transp lant- [employer] Work Phone: Specific gravity (U) [Rel density] 1.016 1 See Below [facility] Work Phone: Comment on above: Reference Range: 1.0 05 - 1.035 Urinalysis Negative NEGATIVE [facility] Work Phone: Comment on above: Reference Range: [...] Urinalysis <2.0 0.0 - 1.9 [facility]- [facility] Work Phone: Urinalysis CLEAR CLEAR [facility]- [facility] Work Phone: Urinalysis, Microscopicon Urinalysis, Microscopic 1+ [facility]-Transplant- [facility] Work Phone: Urinalysis, Microscopic 3 {/HPF} MG-Transplant- [facility] Work Phone: Urinalysis, Microscopic 2 {/HPF} 0-5 [facility]-Transplant- [facility] [address] Work Phone: Urinalysis, Microscopic 12 {/HPF} Abnormal 0-5 MG-Transplant- [facility] [address] Work Phone: VARICELLA ZOSTER IGG ABon VARICELLA ZOSTER IGG AB Positive Normal NEGATIVE [facility] Comment on above: Result Comment: [...] assays. Performed By: #### H LAS1 #### [facility] [address] [place] [address] Varicella Zoster IgG Antibod yon 05-28-2022 VZV IgG IA Ql (S) Positive NEGATIVE MG-Mora splant- [facility] [address] Work Phone: Comment on above: INTERPRETATIVE [...] percentageon 2021 Basophil percentage 3.2 mg/dL 2.5-4.9 [facility] Work Phone: Chloride [Moles/Vol] 104 mmol/L 98-107 [facility] Work Phone: Glucose [Mass/Vol] 92 mg/dL 74-106 [facility] Work Phone: Potassium [Moles/Vol] 4.3 mmol/L 3.5-5.1 [facility] Work Phone: Sodium [Moles/Vol] 137 mmol/L 136-145 [facility] Work Phone: WBC (Bld) [#/Vol] 9.6 10*3/uL 4.4-11.0 [facility] Work Phone: Blood erythrocytes count (nu mber/volume)on 05-02-2022 RBC (Bld) [#/Vol] 4.06 10*6/uL 4.2-5.4 [facility] Work Phone: Blood hemoglobin measurement (mass/volume)on 05-02-2022 Hemoglobin (Bld) [Mass/Vol] 12.1 g/dL 12.0-15.0 [facility] Work Phone: Blood platelet mean volumeon 05-02-2022 Platelet mean volume (Bld) [Entitic vol] 9.5 fL 6.2-12.0 [facility] Work Phone: Determination of erythrocyte mean corpuscular volume (MCV)on 05-02-2022 MCV (RBC) [Entitic vol] 95.3 fL 81-99 [facility] Work Phone: Hematocrit Auto (Bld) [Volum e fraction]on 05-02-2022 Hematocrit (Bld) [Volume fraction] 38.7 % 37-47 [facility] Work Phone: Laboratory - Chemistry and C hemistry - challengeon 05-02-2022 CO2 [Moles/Vol] 29.0 mmol/L 21.0-32.0 [facility] Work Phone: Urea nitrogen/Creatinine [Mass ratio] 21.2 mg/mg 10-20 [facility] Work Phone: Laboratory - Hematology and Cell countson 05-02-2022 Erythrocyte distribution width (RBC) [Entitic vol] 46.5 fL 35.1-43.9 [facility] Work Phone: Erythrocyte distribution width (RBC) [Ratio] 13.2 % 11.6-14.6 [facility] Work Phone: MCH (RBC) [Entitic mass] 29.8 pg 27.0-32.0 [facility] Work Phone: MCHC Auto (RBC) [Mass/Vol]on 05-02-2022 MCHC (RBC) [Mass/Vol] 31.3 g/dL 32-36 [facility] Work Phone: No Panel Informationon 05-02 Estimated GFR (MDRD) Amer 35 mL/min >60 [facility] Work Phone: Comment on above: GFR Calc Estimated GFR (MDRD) Non-Af Amer 29 mL/min >60 [facility] Work Phone: Comment on above: Non- GFR Calc Parathyroid Hormone (Intact) 40.1 pg/mL 18.4-80.1 [facility] Work Phone: Platelets bldon 05-02-2022 Platelets (Bld) [#/Vol] 268 10*3/uL 150-450 [facility] Work Phone: Serum or plasma albumin lesly urement (mass/volume)on 05-02-2022 Albumin [Mass/Vol] 3.4 g/dL 3.2-5.0 [facility] Work Phone: Serum or plasma calcium lesly urement (mass/volume)on 05-02-2022 Calcium [Mass/Vol] 9.7 mg/dL 8.5-10.1 [facility] Work Phone: Serum or plasma creatinine m easurement (mass/volume)on 05-02-2022 Creatinine [Mass/Vol] 1.89 mg/dL 0.55-1.02 [facility] Work [facility]: Comment on above: The validity of the calculated GFR & GFRAA in patients over 70 years has not been determined. Clinical correlation is essential. Serum or plasma urea nitroge n measurement (mass/volume)on 05-02-2022 Urea nitrogen [Mass/Vol] 40 mg/dL 7-18 [facility] Work Phone: Urine creatinine measurement (mass/volume)on 05-02-2022 Creatinine (U) [Mass/Vol] 72.60 mg/dL NO RANGE EST. [facility] Work Phone: Urine protein measurement (m ass/volume)on 05-02-2022 Protein (U) [Mass/Vol] 114.6 mg/dL 0.0-11.8 [facility] Work Phone: Urine protein/creatinine mas s ratioon 05-02-2022 Protein/Creatinine (U) [Mass ratio] 1579 mg/g CRE 0-200 [facility] Work Phone: Absolute lymphocyte counton 02-08-2022 Lymphocytes Auto (Unsp spec) [#/Vol] 1.86 10*3/uL 0.83-4.51 [facility] Work Phone: Basophil percentageon 2021 Amylase [Catalytic activity/Vol] 57 U/L 25-115 [facility] Work Phone: Basophils/100 WBC (Bld) 0.7 % 0-1 [facility] Work Phone: Bilirubin [Mass/Vol] 0.30 mg/dL 0.20-1.00 [facility]: Comment on above: For patients on eltr ombopag therapy, use of [employer] TBIL is not recommended. Chloride [Moles/Vol] 106 mmol/L 98-107 [facility] Work Phone: Eosinophils/100 WBC (Bld) 5.6 % 0-5 [facility] Work Phone: Glucose [Mass/Vol] 180 mg/dL 74-106 [facility] Work Phone: Comment on above: Fasting Glucose resu lt greater than or equal to 126 mg/dL suggests DIABETES MELLITUS per A.D.A. criteria. Neutrophils (Bld) [#/Vol] 5.1 10*3/uL 2.0-7.7 [facility] Work Phone: Neutrophils/100 WBC (Bld) 63.4 % 47-70 [facility] Work Phone: Potassium [Moles/Vol] 5.1 mmol/L 3.5-5.1 [facility] Work Phone: Protein [Mass/Vol] 7.7 g/dL 6.4-8.2 [facility] Work Phone: Sodium [Moles/Vol] 136 mmol/L 136-145 [facility] Work Phone: WBC (Bld) [#/Vol] 8.1 10*3/uL 4.4-11.0 [facility] Work Phone: Blood erythrocytes count (nu mber/volume)on 02-08-2022 RBC (Bld) [#/Vol] 4.10 10*6/uL 4.2-5.4 [facility] Work Phone: Blood hemoglobin measurement (mass/volume)on 02-08-2022 Hemoglobin (Bld) [Mass/Vol] 11.9 g/dL 12.0-15.0 [facility] Work Phone: Blood lymphocytes/100 leukoc yteson 02-08-2022 Lymphocytes/100 WBC (Bld) 23.0 % 19-41 [facility] Work Phone: Blood monocytes/100 leukocyt eson 02-08-2022 Monocytes/100 WBC (Bld) 6.9 % 0-10 [facility] Work Phone: Blood platelet mean volumeon 02-08-2022 Platelet mean volume (Bld) [Entitic vol] 9.9 fL 6.2-12.0 [facility] Work Phone: Determination of erythrocyte mean corpuscular volume (MCV)on 02-08-2022 MCV (RBC) [Entitic vol] 94.1 fL 81-99 [facility] Work Phone: Hematocrit Auto (Bld) [Volum e fraction]on 02-08-2022 Hematocrit (Bld) [Volume fraction] 38.6 % 37-47 [facility] Work Phone: Laboratory - Chemistry and C hemistry - challengeon 02-08-2022 ALP [Catalytic activity/Vol] 87 U/L 45-117 [facility] Work Phone: ALT [Catalytic activity/Vol] 16 U/L 13-56 [facility] Work Phone: CO2 [Moles/Vol] 27.0 mmol/L 21.0-32.0 [facility] Work Phone: Globulin (S) [Mass/Vol] 4.3 g/dL 2.2-4.2 [facility] Work Phone: Lipase [Catalytic activity/Vol] 55 U/L 73-393 [facility] Work Phone: Urea nitrogen/Creatinine [Mass ratio] 20.6 mg/mg 10-20 [facility] Work Phone: Laboratory - Hematology and Cell countson 02-08-2022 Erythrocyte distribution width (RBC) [Entitic vol] 46.5 fL 35.1-43.9 [facility] Work Phone: Erythrocyte distribution width (RBC) [Ratio] 13.3 % 11.6-14.6 [facility] Work Phone: Immature granulocytes/100 WBC (Bld) 0.400 % 0.0-0.9 [facility] Work Phone: Comment on above: IG% - Immature Granu locytes (promyelocytes, myelocytes and metamyelocytes) > 1% indicates that a LEFT SHIFT is Present. MCH (RBC) [Entitic mass] 29.0 pg 27.0-32.0 [facility] Work Phone: Nucleated RBC/100 WBC (Bld) [Ratio] 0 % 0-5 [facility] Work Phone: MCHC Auto (RBC) [Mass/Vol]on 02-08-2022 MCHC (RBC) [Mass/Vol] 30.8 g/dL 32-36 [facility] Work Phone: No Panel Informationon 02-08 Estimated GFR (MDRD) Amer 28 mL/min >60 [facility] Work Phone: Comment on above: GFR Calc Estimated GFR (MDRD) Non-Af Amer 23 mL/min >60 [facility] Work Phone: Comment on above: Non- GFR Calc Platelets bldon 02-08-2022 Platelets (Bld) [#/Vol] 235 10*3/uL 150-450 [facility] Work Phone: Serum or plasma albumin lesly urement (mass/volume)on 02-08-2022 Albumin [Mass/Vol] 3.4 g/dL 3.2-5.0 [facility] Work Phone: Serum or plasma albumin/glob ulin mass ratioon 02-08-2022 Albumin/Globulin [Mass ratio] 0.8 {ratio} 0.9-2.4 [facility] Work Phone: Serum or plasma calcium lesly urement (mass/volume)on 02-08-2022 Calcium [Mass/Vol] 9.6 mg/dL 8.5-10.1 [facility] Work Phone: Serum or plasma creatinine m easurement (mass/volume)on 02-08-2022 Creatinine [Mass/Vol] 2.28 mg/dL 0.55-1.02 [facility] Work Phone: Comment on above: The validity of the calculated GFR & GFRAA in patients over 70 years has not been determined. Clinical correlation is essential. Serum or plasma urea nitroge n measurement (mass/volume)on 02-08-2022 Urea nitrogen [Mass/Vol] 47 mg/dL 7-18 [facility] Work Phone: Thin prep Papanicolaou smear with manual screeningon 02-08-2022 Thin prep Papanicolaou smear with manual screening 16 U/L 15-37 [facility] Work Phone: Thin prep Papanicolaou smear with manual screening 3 5-15 [facility] Work Phone: Laboratory - Hematology and Cell countson 01-10-2022 HbA1c (Bld) [Mass fraction] 7.9 % [facility] Work Phone: Basophil percentageon 2021 Basophil percentage 4.8 mg/dL 2.5-4.9 [facility] Work Phone: Chloride [Moles/Vol] 108 mmol/L 98-107 [facility] Work Phone: Glucose [Mass/Vol] 204 mg/dL 74-106 [facility] Work Phone: Comment on above: Glucose result great er than or equal to 200 mg/dLsuggests DIABETES MELLITUS per A.D.A. criteria. Potassium [Moles/Vol] 4.7 mmol/L 3.5-5.1 [facility] Work Phone: Sodium [Moles/Vol] 138 mmol/L 136-145 [facility] Work Phone: WBC (Bld) [#/Vol] 7.8 10*3/uL 4.4-11.0 [facility] Work Phone: Blood erythrocytes count (nu mber/volume)on 12-24-2021 RBC (Bld) [#/Vol] 3.67 10*6/uL 4.2-5.4 [facility] Work Phone: Blood hemoglobin measurement (mass/volume)on 12-24-2021 Hemoglobin (Bld) [Mass/Vol] 10.9 g/dL 12.0-15.0 [facility] Work Phone: Blood platelet mean volumeon 12-24-2021 Platelet mean volume (Bld) [Entitic vol] 9.8 fL 6.2-12.0 [facility] Work Phone: Determination of erythrocyte mean corpuscular volume (MCV)on 12-24-2021 MCV (RBC) [Entitic vol] 92.1 fL 81-99 [facility] Work Phone: Hematocrit Auto (Bld) [Volum e fraction]on 12-24-2021 Hematocrit (Bld) [Volume fraction] 33.8 % 37-47 [facility] Work Phone: Laboratory - Chemistry and C hemistry - challengeon 12-24-2021 CO2 [Moles/Vol] 25.0 mmol/L 21.0-32.0 [facility] Work Phone: Urea nitrogen/Creatinine [Mass ratio] 23.2 mg/mg 10-20 [facility] Work Phone: Laboratory - Hematology and Cell countson 12-24-2021 Erythrocyte distribution width (RBC) [Entitic vol] 47.2 fL 35.1-43.9 [facility] Work Phone: Erythrocyte distribution width (RBC) [Ratio] 14.0 % 11.6-14.6 [facility] Work Phone: MCH (RBC) [Entitic mass] 29.7 pg 27.0-32.0 [facility] Work Phone: MCHC Auto (RBC) [Mass/Vol]on 12-24-2021 MCHC (RBC) [Mass/Vol] 32.2 g/dL 32-36 [facility] Work Phone: No Panel Informationon 12-24 Estimated GFR (MDRD) Amer 36 mL/min >60 [facility] Work Phone: Comment on above: GFR Calc Estimated GFR (MDRD) Non-Af Amer 29 mL/min >60 [facility] Work Phone: Comment on above: Non- GFR Calc Parathyroid Hormone (Intact) 55.7 pg/mL 18.4-80.1 [facility] Work Phone: Vitamin D 25-Hydroxy 45.6 ng/mL [facility] Work Phone: Comment on above: Vitamin D 25(OH) Sta tus Range Deficiency <20 ng/mL (50nmol/L) Insufficiency 20 - 30 ng/mL (50 - 75 nmol/L) Sufficiency 30 - 100 ng/mL (75 - 250 nmol/L) Toxicity >100 ng/mL (>250 nmol/L) Platelets bldon 12-24-2021 Platelets (Bld) [#/Vol] 225 10*3/uL 150-450 [facility] Work Phone: Serum or plasma albumin lesly urement (mass/volume)on 12-24-2021 Albumin [Mass/Vol] 3.2 g/dL 3.2-5.0 [facility] Work Phone: Serum or plasma calcium lesly urement (mass/volume)on 12-24-2021 Calcium [Mass/Vol] 8.9 mg/dL 8.5-10.1 [facility] Work Phone: Serum or plasma creatinine m easurement (mass/volume)on 12-24-2021 Creatinine [Mass/Vol] 1.85 mg/dL 0.55-1.02 [facility] Work Phone: Comment on above: The validity of the calculated GFR & GFRAA in patients over 70 years has not been determined. Clinical correlation is essential. Serum or plasma urea nitroge n measurement (mass/volume)on 12-24-2021 Urea nitrogen [Mass/Vol] 43 mg/dL 7-18 [facility] Work Phone: Basophil percentageon 2021 Bilirubin [Mass/Vol] 0.30 mg/dL 0.20-1.00 [facility] Work Phone: Comment on above: For patients on eltr ombopag therapy, use of Dimension [employer] TBIL is not recommended. Chloride [Moles/Vol] 104 mmol/L 98-107 [facility] Work Phone: Cholesterol [Mass/Vol] 119 mg/dL <200 [facility] Work Phone: Comment on above: <200 mg/dL Desirable 200-240 mg/dL Borderline >240 mg/dL High Risk Glucose [Mass/Vol] 293 mg/dL 74-106 [facility] Work Phone: Comment on above: Glucose result great er than or equal to 200 mg/dLsuggests DIABETES MELLITUS per A.D.A. criteria. Potassium [Moles/Vol] 5.0 mmol/L 3.5-5.1 [facility] Work Phone: Protein [Mass/Vol] 7.2 g/dL 6.4-8.2 [facility] Work Phone: Sodium [Moles/Vol] 136 mmol/L 136-145 [facility] Work Phone: Triglyceride [Mass/Vol] 79 mg/dL [facility] Work Phone: Comment on above: The drugs N-Acetylcy steine and Metamizole may falsely depress this assay.Serum Triglycerides Reference Interval Normal <150 mg/dL Borderline high 150 - 199 mg/dL High 200 - 499 mg/dL Very High > or = 500 mg/dL WBC (Bld) [#/Vol] 6.4 10*3/uL 4.4-11.0 [facility] Work Phone: Blood erythrocytes count (nu mber/volume)on 12-19-2021 RBC (Bld) [#/Vol] 3.58 10*6/uL 4.2-5.4 [facility] Work Phone: Blood hemoglobin measurement (mass/volume)on 12-19-2021 Hemoglobin (Bld) [Mass/Vol] 10.4 g/dL 12.0-15.0 [facility] Work Phone: Blood platelet mean volumeon 12-19-2021 Platelet mean volume (Bld) [Entitic vol] 10.6 fL 6.2-12.0 [facility] Work Phone: Determination of erythrocyte mean corpuscular volume (MCV)on 12-19-2021 MCV (RBC) [Entitic vol] 93.9 fL 81-99 [facility] Work Phone: Hematocrit Auto (Bld) [Volum e fraction]on 12-19-2021 Hematocrit (Bld) [Volume fraction] 33.6 % 37-47 [facility] Work Phone: Iron measurement (mass/mass) on 12-19-2021 Iron (Unsp spec) [Mass/Mass] 50 ug/dL 50-170 [facility] Work Phone: Laboratory - Chemistry and C hemistry - challengeon 12-19-2021 ALP [Catalytic activity/Vol] 90 U/L 45-117 [facility] Work Phone: ALT [Catalytic activity/Vol] 21 U/L 13-56 [facility] Work Phone: CO2 [Moles/Vol] 26.0 mmol/L 21.0-32.0 [facility] Work Phone: Globulin (S) [Mass/Vol] 4.1 g/dL 2.2-4.2 [facility] Work Phone: Urea nitrogen/Creatinine [Mass ratio] 22.0 mg/mg 10-20 [facility] Work Phone: Laboratory - Hematology and Cell countson 12-19-2021 Erythrocyte distribution width (RBC) [Entitic vol] 47.5 fL 35.1-43.9 [facility] Work Phone: Erythrocyte distribution width (RBC) [Ratio] 13.8 % 11.6-14.6 [facility] Work Phone: MCH (RBC) [Entitic mass] 29.1 pg 27.0-32.0 [facility] Work Phone: MCHC Auto (RBC) [Mass/Vol]on 12-19-2021 MCHC (RBC) [Mass/Vol] 31.0 g/dL 32-36 [facility] Work Phone: No Panel Informationon 12-19 Estimated GFR (MDRD) Amer 35 mL/min >60 [facility] Work Phone: Comment on above: GFR Calc Estimated GFR (MDRD) Non-Af Amer 29 mL/min >60 [facility] Work Phone: Comment on above: Non- GFR Calc Parathyroid Hormone (Intact) 59.6 pg/mL 18.4-80.1 [facility] Work Phone: Thyroid Stimulating Hormone (TSH) 1.48 uIU/mL 0.358-3.74 [facility] Work Phone: Vitamin D 25-Hydroxy 46.2 ng/mL [facility] Work Phone: Comment on above: Vitamin D 25(OH) Sta tus Range Deficiency <20 ng/mL (50nmol/L) Insufficiency 20 - 30 ng/mL (50 - 75 nmol/L) Sufficiency 30 - 100 ng/mL (75 - 250 nmol/L) Toxicity >100 ng/mL (>250 nmol/L) Platelets bldon 12-19-2021 Platelets (Bld) [#/Vol] 237 10*3/uL 150-450 [facility] Work Phone: Serum or plasma albumin lesly urement (mass/volume)on 12-19-2021 Albumin [Mass/Vol] 3.1 g/dL 3.2-5.0 [facility] Work Phone: Serum or plasma albumin/glob ulin mass ratioon 12-19-2021 Albumin/Globulin [Mass ratio] 0.8 {ratio} 0.9-2.4 [facility] Work Phone: Serum or plasma calcium lesly urement (mass/volume)on 12-19-2021 Calcium [Mass/Vol] 8.8 mg/dL 8.5-10.1 [facility] Work Phone: Serum or plasma cholesterol in HDL measurement (mass/volume)on 12-19-2021 Cholesterol in HDL [Mass/Vol] 59 mg/dL [facility] Work Phone: Comment on above: The drugs N-Acetylcy steine and Metamizole may falsely depress this assay. Reference Range HDL <40 mg/dL Low HDL Cholesterol HDL >or= 60 mg/dL High HDL Cholesterol Serum or plasma cholesterol in VLDL measurement (mass/volume)on 12-19-2021 Cholesterol in VLDL [Mass/Vol] 16 mg/dL 5-40 [facility] Work Phone: Serum or plasma creatinine m easurement (mass/volume)on 12-19-2021 Creatinine [Mass/Vol] 1.86 mg/dL 0.55-1.02 [facility] Work Phone: Comment on above: The validity of the calculated GFR & GFRAA in patients over 70 years has not been determined. Clinical correlation is essential. Serum or plasma ferritin allyn surement (mass/volume)on 12-19-2021 Ferritin [Mass/Vol] 38 ng/mL 8-252 [facility] Work Phone: Serum or plasma low density lipoprotein (LDL) cholesterol measurement (mass/volume)on 12-19-2021 Cholesterol in LDL [Mass/Vol] 44 mg/dL 0-130 [facility] Work Phone: Serum or plasma urea nitroge n measurement (mass/volume)on 12-19-2021 Urea nitrogen [Mass/Vol] 41 mg/dL 7-18 [facility] Work Phone: Thin prep Papanicolaou smear with manual screeningon 12-19-2021 Thin prep Papanicolaou smear with manual screening 15 U/L 15-37 [facility] Work Phone: Thin prep Papanicolaou smear with manual screening 6 5-15 [facility] Work Phone: Office Visit: Diabetes follo w upon 05-03-2017 Dietary management education, guidance, and counseling (procedure) yes Invalid Interpretation Code [facility] Work Phone: Documentation of current medications (procedure) Done Invalid Interpretation Code [facility] Work Phone: Fall risk assessment Fall risk assessment Invali d Interpretation Code [facility] Work Phone: Smoking cessation education (procedure) yes Invalid Interpretation Code [facility] Work Phone: Tobacco smoking status NHIS Former Invalid Interpretation Code [facility] Work Phone: Tobacco use CPHS Current every day smoker Invalid Interpretation Code [facility] Work Phone: Office Visit: Diabetic Evalu ationon 02-18-2017 Adolescent depression screening assessment Adolescent depression screening assessment Invalid Interpretation Code [facility] Work Phone: Fall risk assessment No Invalid Interpretation Code [facility] Work Phone: Chart Maintenanceon 01-08-20 17 HbA1c 10.0 % Invalid Interpretation Code [facility] Work Phone: Office Visit: Diabetic Evalu ationon 11-04-2011 General categories [interpretation] of Cervical or vaginal smear or scraping by Cyto stain Hysteectomy Invalid Interpretation Code [facility] Work Phone: Vital Signs Date Time Vital Sign Value Performing Clinician Facility 05-20-2025 22:40-0400 Body temperature 97.8 [degF] Dr. Bird Lujan MD Work Phone: [facility] 05-20-2025 22:40-0400 Diastolic blood pressure 65 mm[Hg] Dr. Bird Lujan MD Work Phone: [facility] 05-20-2025 22:40-0400 Heart rate 52 /min Dr. Bird Lujan MD Work Phone: [facility] 05-20-2025 22:40-0400 Respiratory rate 16 /min Dr. Bird Lujan MD Work Phone: [facility] 05-20-2025 22:40-0400 SaO2% (BldA) [Mass fraction] 100 % Dr. Bird Lujan MD Work Phone: [facility] 05-20-2025 22:40-0400 Systolic blood pressure 194 mm[Hg] Dr. Bird Lujan MD Work Phone: [facility] 05-20-2025 22:19-0400 Body mass index (BMI) [Ratio] 17.9 kg/m2 Dr. Bird Lujan MD Work Phone: 3(756)982-934076 [place] [address] 05-20-2025 22:19-0400 Body weight 50.[address] Bird Lujan MD Work Phone: 4(837)121-020184 [place] [address] 05-20-2025 20:21-0400 Body height 167.[address] Bird Lujan MD Work Phone: 8(024)006-781984 [place] [address] 05-20-2025 20:21-0400 Inhaled oxygen flow rate 3 L/min Dr. Bird Lujan MD Work Phone: 4(143)575-869884 [place] [address] 05-18-2025 07:26-0400 Body mass index (BMI) [Ratio] 16 kg/m2 Dr. Bird Lujan MD Work Phone: 9(597)831-472184 [place] [address] 05-18-2025 07:26-0400 Body temperature 97.2 [degF] Dr. Bird Lujan MD Work Phone: 8(907)347-808684 [place] [address] 05-18-2025 07:26-0400 Body weight 44.[address] Bird Lujan MD Work Phone: 0(746)359-951876 [place] [address] 05-18-2025 07:26-0400 Diastolic blood pressure 59 mm[Hg] Dr. Bird Lujan MD Work Phone: 7(717)662-227384 [place] [address] 05-18-2025 07:26-0400 Heart rate 56 /min Dr. Bird Lujan MD Work Phone: 6(103)134-615684 [place] [address] 05-18-2025 07:26-0400 Inhaled oxygen flow rate 3 L/min Dr. Bird Lujan MD Work Phone: 2(700)839-148157 [address] 05-18-2025 07:26-0400 Respiratory rate 16 /min Dr. Bird Lujan MD Work Phone: 0(098)310-022184 [place] [address] 05-18-2025 07:26-0400 SaO2% (BldA) [Mass fraction] 95 % Dr. Bird Lujan MD Work Phone: 3(428)146-121084 [place] [address] 05-18-2025 07:26-0400 Systolic blood pressure 142 mm[Hg] Dr. Bird Lujan MD Work Phone: 4(342)155-609484 [place] [address] 05-08-2025 12:50-0400 Body temperature 98.6 [degF] Dr. Bird Lujan MD Work Phone: 6(687)225-203284 [place] [address] 05-08-2025 12:50-0400 Diastolic blood pressure 65 mm[Hg] Dr. Bird Lujan MD Work Phone: 8(919)796-113684 [place] [address] 05-08-2025 12:50-0400 Heart rate 61 /min Dr. Bird Lujan MD Work Phone: 1(479)848-495884 [place] [address] 05-08-2025 12:50-0400 Respiratory rate 16 /min Dr. Bird Lujan MD Work Phone: 5(105)839-646684 [place] [address] 05-08-2025 12:50-0400 SaO2% (BldA) [Mass fraction] 100 % Dr. Bird Lujan MD Work Phone: 0(213)697-655384 [place] [address] 05-08-2025 12:50-0400 Systolic blood pressure 171 mm[Hg] Dr. Bird Lujan MD Work Phone: 9(396)225-060984 [place] [address] 05-08-2025 09:13-0400 Inhaled oxygen flow rate 2 L/min Dr. Bird Lujan MD Work Phone: 7(277)537-020884 [place] [address] 05-08-2025 08:01-0400 Body height 167.[address] Bird Lujan MD Work Phone: 9(168)407-610684 [place] [address] 05-08-2025 08:01-0400 Body mass index (BMI) [Ratio] 16.3 kg/m2 Dr. Bird Lujan MD Work Phone: [facility] 05-08-2025 08:01-0400 Body weight [address] Bird Lujan MD Work Phone: [facility] 04-09-2025 13:59-0400 Body temperature 97.8 [degF] Dr. Bird Lujan MD Work Phone: [facility] 04-09-2025 13:59-0400 Diastolic blood pressure 78 mm[Hg] Dr. Bird Lujan MD Work Phone: [facility] 04-09-2025 13:59-0400 Heart rate 50 /min Dr. Bird Lujan MD Work Phone: [facility] 04-09-2025 13:59-0400 Respiratory rate 16 /min Dr. Bird Lujan MD Work Phone: [facility] 04-09-2025 13:59-0400 SaO2% (BldA) [Mass fraction] 100 % Dr. Bird Lujan MD Work Phone: [facility] 04-09-2025 13:59-0400 Systolic blood pressure 163 mm[Hg] Dr. Bird Lujan MD Work Phone: [facility] 04-09-2025 12:22-0400 Body height 167.[address] Bird Lujan MD Work Phone: [facility] 04-09-2025 12:22-0400 Inhaled oxygen flow rate 3 L/min Dr. Bird Lujan MD Work Phone: [facility] 03-22-2025 13:04-0400 Body height 167.[address] Christy Huerta DO Work Phone: [facility] 03-22-2025 13:04-0400 Body temperature 98.2 [degF] Dr. Christy Huerta DO Work Phone: [facility] 03-22-2025 13:04-0400 Diastolic blood pressure 66 mm[Hg] Dr. Christy Huerta DO Work Phone: [facility] 03-22-2025 13:04-0400 Heart rate 55 /min Dr. Christy Huerta DO Work Phone: [facility] 03-22-2025 13:04-0400 Respiratory rate 16 /min Dr. Christy Huerta DO Work Phone: [facility] 03-22-2025 13:04-0400 SaO2% (BldA) [Mass fraction] 100 % Dr. Christy Huerta DO Work Phone: [facility] 03-22-2025 13:04-0400 Systolic blood pressure 177 mm[Hg] Dr. Christy Huerta DO Work Phone: 2(889)460-574457 [place] [address] 01-27-2025 08:42-0400 Body mass index (BMI) [Ratio] 17.2 kg/m2 Dr. Christy Huerta DO Work Phone: 1(873)313-611457 [place] [address] 01-27-2025 08:42-0400 Body weight 48.[address] Christy Huerta DO Work Phone: 9(118)454-755757 [place] [address] 01-27-2025 08:42-0400 Diastolic blood pressure 72 mm[Hg] Dr. Christy Huerta DO Work Phone: 0(073)096-740257 [place] [address] 01-27-2025 08:42-0400 Heart rate 65 /min Dr. Christy Huerta DO Work Phone: [facility] 01-27-2025 08:42-0400 Inhaled oxygen flow rate 3 L/min Dr. Christy Huerta DO Work Phone: [facility] 01-27-2025 08:42-0400 SaO2% (BldA) [Mass fraction] 99 % Dr. Christy Huerta DO Work Phone: [facility] 01-27-2025 08:42-0400 Systolic blood pressure 172 mm[Hg] Dr. Christy Huerta DO Work Phone: [facility] 01-11-2025 15:17-0400 Body temperature 97.8 [degF] Dr. Bird Lujan MD Work Phone: [facility] 01-11-2025 15:17-0400 Body weight 50.[address] Bird Lujan MD Work Phone: [facility] 01-11-2025 15:17-0400 Diastolic blood pressure 52 mm[Hg] Dr. Bird Lujan MD Work Phone: [facility] 01-11-2025 15:17-0400 Heart rate 60 /min Dr. Bird Lujan MD Work Phone: 2(355)370-121076 [place] [address] 01-11-2025 15:17-0400 Inhaled oxygen flow rate 3 L/min Dr. Bird Lujan MD Work Phone: 5(153)991-792376 [place] [address] 01-11-2025 15:17-0400 Respiratory rate 16 /min Dr. Bird Lujan MD Work Phone: 7(952)175-636376 [place] [address] 01-11-2025 15:17-0400 SaO2% (BldA) [Mass fraction] 100 % Dr. Bird Lujan MD Work Phone: [facility] 01-11-2025 15:17-0400 Systolic blood pressure 125 mm[Hg] Dr. Bird Lujan MD Work Phone: [facility] 01-10-2025 09:10-0400 Body height 167.[address] Bird Lujan MD Work Phone: [facility] 01-06-2025 09:46-0500 Inhaled oxygen flow rate 2 L/min Dr. Bird Lujan MD Work Phone: 7(448)765-803876 [place] [address] 01-06-2025 08:32-0500 Heart rate 65 /min Dr. Bird Lujan MD Work Phone: [facility] 01-06-2025 08:27-0500 Body temperature 97.6 [degF] Dr. Bird Lujan MD Work Phone: 9(606)268-989676 [place] [address] 01-06-2025 08:27-0500 Diastolic blood pressure 54 mm[Hg] Dr. Bird Lujan MD Work Phone: [facility] 01-06-2025 08:27-0500 Respiratory rate 18 /min Dr. Bird Lujan MD Work Phone: [facility] 01-06-2025 08:27-0500 SaO2% (BldA) [Mass fraction] 99 % Dr. Bird Lujan MD Work Phone: 5(086)888-947576 [place] [address] 01-06-2025 08:27-0500 Systolic blood pressure 143 mm[Hg] Dr. Bird Lujan MD Work Phone: 5(238)149-022284 [place] [address] 01-05-2025 16:00-0500 Body mass index (BMI) [Ratio] 16.5 kg/m2 Dr. Bird Lujan MD Work Phone: 1(479)793-359476 [place] [address] 01-05-2025 16:00-0500 Body weight 46.[address] Bird Lujan MD Work Phone: 8(971)301-473776 [place] [address] 01-05-2025 14:33-0500 Inhaled oxygen concentration 30 % Dr. Bird Lujan MD Work Phone: 6(278)545-125157 [address] 12-28-2024 19:34-0500 Body temperature 97.7 [degF] Dr. Bird Lujan MD Work Phone: 6(905)131-738476 [place] [address] 12-28-2024 19:34-0500 Diastolic blood pressure 54 mm[Hg] Dr. Bird Lujan MD Work Phone: 5(910)949-556876 [place] [address] 12-28-2024 19:34-0500 Heart rate 61 /min Dr. Bird Lujan MD Work Phone: [facility] 12-28-2024 19:34-0500 Respiratory rate 16 /min Dr. Bird Lujan MD Work Phone: [facility] 12-28-2024 19:34-0500 SaO2% (BldA) [Mass fraction] 100 % Dr. Bird Lujan MD Work Phone: [facility] 12-28-2024 19:34-0500 Systolic blood pressure 118 mm[Hg] Dr. Bird Lujan MD Work Phone: [facility] 12-28-2024 13:56-0500 Inhaled oxygen flow rate 6 L/min Dr. Bird Lujan MD Work Phone: [facility] 12-28-2024 10:12-0500 Body mass index (BMI) [Ratio] 17.8 kg/m2 Dr. Bird Lujan MD Work Phone: [facility] 12-28-2024 10:12-0500 Body weight [address] Bird Lujan MD Work Phone: 0(995)296-002876 [place] [address] 12-16-2024 13:53-0500 Body mass index (BMI) [Ratio] 17.4 kg/m2 Dr. Bird Lujan MD Work Phone: 2(707)502-167557 [address] 12-16-2024 13:53-0500 Body weight 48.[address] Bird Lujan MD Work Phone: 6(489)338-883976 [place] [address] 12-16-2024 13:53-0500 Diastolic blood pressure 71 mm[Hg] Dr. Bird Lujan MD Work Phone: [facility] 12-16-2024 13:53-0500 Heart rate 61 /min Dr. Bird Lujan MD Work Phone: [facility] 12-16-2024 13:53-0500 Inhaled oxygen flow rate 3 L/min Dr. Bird Lujan MD Work Phone: [facility] 12-16-2024 13:53-0500 Respiratory rate 18 /min Dr. Bird Lujan MD Work Phone: [facility] 12-16-2024 13:53-0500 SaO2% (BldA) [Mass fraction] 100 % Dr. Bird Lujan MD Work Phone: [facility] 12-16-2024 13:53-0500 Systolic blood pressure 164 mm[Hg] Dr. Bird Lujan MD Work Phone: [facility] 12-02-2024 14:48-0500 Body temperature 98.4 [degF] Dr. Bird Lujan MD Work Phone: [facility] 12-02-2024 14:48-0500 Body weight 49.[address] Bird Lujan MD Work Phone: 3(203)263-855457 [address] 12-02-2024 14:48-0500 Diastolic blood pressure 65 mm[Hg] Dr. Bird Lujan MD Work Phone: 5(127)116-645584 [place] [address] 12-02-2024 14:48-0500 Heart rate 65 /min Dr. Bird Lujan MD Work Phone: 4(412)066-765284 [place] [address] 12-02-2024 14:48-0500 Inhaled oxygen flow rate 3 L/min Dr. Bird Lujan MD Work Phone: 5(553)178-350776 [place] [address] 12-02-2024 14:48-0500 Respiratory rate 16 /min Dr. Bird Lujan MD Work Phone: 1(011)869-934684 [place] [address] 12-02-2024 14:48-0500 SaO2% (BldA) [Mass fraction] 99 % Dr. Bird Lujan MD Work Phone: 9(842)315-562676 [place] [address] 12-02-2024 14:48-0500 Systolic blood pressure 161 mm[Hg] Dr. Bird Lujan MD Work Phone: [facility] 11-20-2024 23:26-0500 Body temperature 98.3 [degF] Dr. Bird Lujan MD Work Phone: [facility] 11-20-2024 23:26-0500 Diastolic blood pressure 49 mm[Hg] Dr. Bird Lujan MD Work Phone: [facility] 11-20-2024 23:26-0500 Heart rate 73 /min Dr. Bird Lujan MD Work Phone: [facility] 11-20-2024 23:26-0500 Respiratory rate 19 /min Dr. Bird Lujan MD Work Phone: 8(180)682-844084 [place] [address] 11-20-2024 23:26-0500 SaO2% (BldA) [Mass fraction] 100 % Dr. Bird Lujan MD Work Phone: 8(336)646-893284 [place] [address] 11-20-2024 23:26-0500 Systolic blood pressure 119 mm[Hg] Dr. Bird Lujan MD Work Phone: 7(677)196-670584 [place] [address] 11-20-2024 18:44-0500 Body mass index (BMI) [Ratio] 17.9 kg/m2 Dr. Bird Lujan MD Work Phone: 7(253)683-794784 [place] [address] 11-20-2024 18:44-0500 Body weight 50.[address] Bird Lujan MD Work Phone: 2(140)570-377284 [place] [address] 11-20-2024 18:44-0500 Inhaled oxygen flow rate 3 L/min Dr. Bird Lujan MD Work Phone: 9(560)581-044484 [place] [address] 11-04-2024 16:07-0500 Body mass index (BMI) [Ratio] 18.1 kg/m2 Dr. Bird Lujan MD Work Phone: 8(227)554-287384 [place] [address] 11-04-2024 16:07-0500 Body temperature 97.2 [degF] Dr. Bird Lujan MD Work Phone: 6(554)972-758084 [place] [address] 11-04-2024 16:07-0500 Body weight 50.[address] Bird Lujan MD Work Phone: 4(622)228-688284 [place] [address] 11-04-2024 16:07-0500 Diastolic blood pressure 84 mm[Hg] Dr. Bird Lujan MD Work Phone: 7(303)270-801476 [place] [address] 11-04-2024 16:07-0500 Heart rate 72 /min Dr. Bird Lujan MD Work Phone: 0(691)542-292984 [place] [address] 11-04-2024 16:07-0500 Respiratory rate 15 /min Dr. Bird Lujan MD Work Phone: 2(230)643-386576 [place] [address] 11-04-2024 16:07-0500 SaO2% (BldA) [Mass fraction] 100 % Dr. Bird Lujan MD Work Phone: 7(904)083-155276 [place] [address] 11-04-2024 16:07-0500 Systolic blood pressure 194 mm[Hg] Dr. Bird Lujan MD Work Phone: 7(049)961-716184 [place] [address] 11-04-2024 15:51-0500 Diastolic blood pressure 82 mm[Hg] Dr. Bird Lujan MD Work Phone: 3(764)033-082684 [place] [address] 11-04-2024 15:51-0500 Systolic blood pressure 218 mm[Hg] Dr. Bird Lujan MD Work Phone: 9(511)351-669184 [place] [address] 11-04-2024 08:00-0500 Body mass index (BMI) [Ratio] 18.1 kg/m2 Dr. Bird Lujan MD Work Phone: 7(677)797-438884 [place] [address] 11-04-2024 08:00-0500 Body temperature 97.4 [degF] Dr. Bird Lujan MD Work Phone: 0(384)655-805684 [place] [address] 11-04-2024 08:00-0500 Body weight 50.[address] Bird Lujan MD Work Phone: [phone] [place] [address] 11-04-2024 08:00-0500 Heart rate 75 /min Dr. Bird Lujan MD Work Phone: 1(251)[phone] [place] [address] 11-04-2024 08:00-0500 Inhaled oxygen flow rate 3 L/min Dr. Bird Lujan MD Work Phone: 0(980)[phone] [place] [address] 11-04-2024 08:00-0500 Respiratory rate 20 /min Dr. Bird Lujan MD Work Phone: 3(977)[phone] [place] [address] 11-04-2024 08:00-0500 SaO2% (BldA) [Mass fraction] 99 % Dr. Bird Lujan MD Work Phone: [facility] 10-07-2024 13:43-0500 Body mass index (BMI) [Ratio] 16.8 kg/m2 Dr. Bird Lujan MD Work Phone: [facility] 10-07-2024 13:43-0500 Body weight 47.[address] Bird Lujan MD Work Phone: [facility] 10-07-2024 13:43-0500 Diastolic blood pressure 73 mm[Hg] Dr. Bird Lujan MD Work Phone: [facility] 10-07-2024 13:43-0500 Heart rate 76 /min Dr. Bird Lujan MD Work Phone: [facility] 10-07-2024 13:43-0500 Inhaled oxygen flow rate 3 L/min Dr. Bird Lujan MD Work Phone: [facility] 10-07-2024 13:43-0500 SaO2% (BldA) [Mass fraction] 100 % Dr. Bird Lujan MD Work Phone: [facility] 10-07-2024 13:43-0500 Systolic blood pressure 172 mm[Hg] Dr. Bird Lujan MD Work Phone: [facility] 08-24-2024 15:33-0400 Heart rate 83 /min [facility] Work Phone: [facility] 08-24-2024 15:33-0400 Respiratory rate 12 /min [employer] DO Work Phone: [facility] 08-24-2024 15:33-0400 SaO2% (BldA) [Mass fraction] 99 % [employer] DO Work Phone: [facility] 08-24-2024 07:34-0400 Body temperature 97.9 [degF] [employer] DO Work Phone: [facility] 08-24-2024 07:34-0400 Diastolic blood pressure 58 mm[Hg] Lucina Galvan DO [facility] Phone: [facility] 08-24-2024 07:34-0400 Systolic blood pressure 141 mm[Hg] Lucina Galvan DO Work Phone: [facility] [employer] 08-24-2024 06:00-0400 Body mass index (BMI) [Ratio] 19.43 kg/m2 Lucina Galvan DO Work Phone: [facility] [employer] 08-24-2024 06:00-0400 Body weight 54.6 kg Lucina Galvan DO Work Phone: [facility] 08-22-2024 23:29-0400 Body height 167.6 cm Lucina Galvan DO Work Phone: [facility] 08-21-2024 15:09-0400 SaO2% (BldA) [Mass fraction] 96.1 % Lucina Galvan DO Work Phone: [facility] 08-21-2024 09:09-0400 SaO2% (BldA) [Mass fraction] 96.6 % Lucina Galvan DO Work Phone: [facility] 08-20-2024 21:28-0400 SaO2% (BldA) [Mass fraction] 98.1 % Lucina Galvan DO Work Phone: [facility] 08-20-2024 16:12-0400 SaO2% (BldA) [Mass fraction] 96.9 % Lucina Galvan DO Work Phone: [facility] 08-20-2024 13:02-0400 SaO2% (BldA) [Mass fraction] 68.2 % Lucina Galvan DO Work Phone: [facility] 08-20-2024 10:31-0400 SaO2% (BldA) [Mass fraction] 92.1 % Lucina Galvan DO Work Phone: [facility] 08-13-2024 07:08-0400 SaO2% (BldA) [Mass fraction] 95.8 % Lucina Galvan DO Work Phone: [facility] 08-10-2024 12:21-0400 Diastolic blood pressure 56 mm[Hg] Colin Peoples MD Work Phone: [facility] 08-10-2024 12:21-0400 Heart rate 81 /min Colin Peoples MD Work Phone: [facility] 08-10-2024 12:21-0400 Systolic blood pressure 133 mm[Hg] Colin Peoples MD Work Phone: [facility] 08-10-2024 12:17-0400 Body temperature 97 [degF] Colin Peoples MD Work Phone: [facility] 08-10-2024 12:17-0400 Respiratory rate 16 /min Colin Peoples MD Work Phone: [facility] 08-10-2024 12:17-0400 SaO2% (BldA) [Mass fraction] 100 % Colin Peoples MD Work Phone: [facility] 08-07-2024 04:00-0400 Body mass index (BMI) [Ratio] 20.43 kg/m2 Colin Peoples MD Work Phone: [facility] 08-07-2024 04:00-0400 Body weight 57.4 kg Colin Peoples MD Work Phone: [facility] 08-03-2024 13:55-0400 Body height 167.6 cm Colin Peoples MD Work Phone: [facility] 07-31-2024 06:18-0400 SaO2% (BldA) [Mass fraction] 98.0 % Colin Peoples MD Work Phone: [facility] 02-05-2024 07:48-0400 Body height 167.[address] Sin Lujan Work Phone: [facility] 02-05-2024 07:48-0400 Body mass index (BMI) [Ratio] 15.1 kg/m2 Dr. Sin Lujan Work Phone: [facility] 02-05-2024 07:48-0400 Body temperature 94.6 [degF] Dr. Sin Lujan Work Phone: [facility] 02-05-2024 07:48-0400 Body weight 42.[address] Sin Lujan Work Phone: [facility] 02-05-2024 07:48-0400 Diastolic blood pressure 66 mm[Hg] Dr. Sin Lujan Work Phone: [facility] 02-05-2024 07:48-0400 Heart rate 61 /min Dr. Sin Lujan Work Phone: [facility] 02-05-2024 07:48-0400 Inhaled oxygen flow rate 3 L/min Dr. Sin Lujan Work Phone: [facility] 02-05-2024 07:48-0400 Respiratory rate 18 /min Dr. Sin Lujan Work Phone: [facility] 02-05-2024 07:48-0400 SaO2% (BldA) [Mass fraction] 99 % Dr. Sin Lujan Work Phone: [facility] 02-05-2024 07:48-0400 Systolic blood pressure 107 mm[Hg] Dr. Sin Lujan Work Phone: [facility] 12-03-2023 10:07-0500 Body height 167.[address] Sin Lujan Work Phone: [facility] 12-03-2023 10:07-0500 Body mass index (BMI) [Ratio] 16.2 kg/m2 Dr. Sin Lujan Work Phone: [facility] 12-03-2023 10:07-0500 Body temperature 97.8 [degF] Dr. Sin Lujan Work Phone: [facility] 12-03-2023 10:07-0500 Body weight 45.[address] Sin Lujan Work Phone: [facility] 12-03-2023 10:07-0500 Diastolic blood pressure 75 mm[Hg] Dr. Sin Lujan Work Phone: [facility] 12-03-2023 10:07-0500 Heart rate 52 /min Dr. Sin Lujan Work Phone: [facility] 12-03-2023 10:07-0500 Respiratory rate 16 /min Dr. Sin Lujan Work Phone: [facility] 12-03-2023 10:07-0500 SaO2% (BldA) [Mass fraction] 92 % Dr. Sin Lujan Work Phone: [facility] 12-03-2023 10:07-0500 Systolic blood pressure 148 mm[Hg] Dr. Sin Lujan Work Phone: [facility] 11-18-2023 10:57-0500 Body height 167.[address] Sin Lujan Work Phone: [facility] 11-18-2023 10:57-0500 Body mass index (BMI) [Ratio] 16 kg/m2 Dr. Sin Lujan Work Phone: [facility] 11-18-2023 10:57-0500 Body weight 44.[address] Sin Lujan Work Phone: [facility] 11-18-2023 10:57-0500 Diastolic blood pressure 72 mm[Hg] Dr. Sin Lujan Work Phone: [facility] 11-18-2023 10:57-0500 Heart rate 59 /min Dr. Sin Lujan Work Phone: [facility] 11-18-2023 10:57-0500 Inhaled oxygen flow rate 3 L/min Dr. Sin Lujan Work Phone: [facility] 11-18-2023 10:57-0500 Respiratory rate 18 /min Dr. Sin Lujan Work Phone: [facility] 11-18-2023 10:57-0500 SaO2% (BldA) [Mass fraction] 99 % Dr. Sin Lujan Work Phone: [facility] 11-18-2023 10:57-0500 Systolic blood pressure 148 mm[Hg] Dr. Sin Lujan Work Phone: [facility] 10-29-2023 08:59-0500 Body height 167.[address] Sin Lujan Work Phone: [facility] 10-29-2023 08:59-0500 Body mass index (BMI) [Ratio] 15.8 kg/m2 Dr. Sin Lujan Work Phone: [facility] 10-29-2023 08:59-0500 Body temperature 97.4 [degF] Dr. Sin Lujan Work Phone: [facility] 10-29-2023 08:59-0500 Body weight 44.[address] Sin Lujan Work Phone: [facility] 10-29-2023 08:59-0500 Diastolic blood pressure 63 mm[Hg] Dr. Sin Lujan Work Phone: [facility] 10-29-2023 08:59-0500 Heart rate 67 /min Dr. Sin Lujan Work Phone: [facility] 10-29-2023 08:59-0500 Inhaled oxygen flow rate 3 L/min Dr. Sin Lujan Work Phone: [facility] 10-29-2023 08:59-0500 Respiratory rate 22 /min Dr. Sin Lujan Work Phone: [facility] 10-29-2023 08:59-0500 SaO2% (BldA) [Mass fraction] 99 % Dr. Sin Lujan Work Phone: [facility] 10-29-2023 08:59-0500 Systolic blood pressure 121 mm[Hg] Dr. Sin Lujan Work Phone: [facility] 07-14-2023 10:44-0400 Body height 167.64 cm [employer] Jeanna Davis [employer] Work Phone: [facility] 07-14-2023 10:44-0400 Body mass index (BMI) [Ratio] 15.3 kg/m2 [employer] Jeanna Davis [employer] Work Phone: [facility] 07-14-2023 10:44-0400 Body temperature 97.8 [degF] [employer] Jeanna Davis [employer] Work Phone: [facility] 07-14-2023 10:44-0400 Body weight 43.26 kg [employer] Jeanna Davis [employer] Work Phone: [facility] 07-14-2023 10:44-0400 Diastolic blood pressure 72 mm[Hg] [employer] Jeanna Davis [employer] Work Phone: [facility] 07-14-2023 10:44-0400 Heart rate 70 /min [employer]anna Davis [employer] Work Phone: [facility] 07-14-2023 10:44-0400 Respiratory rate 16 /min [employer]anna Davis [employer] Work Phone: [facility] 07-14-2023 10:44-0400 SaO2% (BldA) [Mass fraction] 95 % [employer] Jeanna Davis [employer] Work Phone: [facility] 07-14-2023 10:44-0400 Systolic blood pressure 144 mm[Hg] [employer] Jeanna Davis [employer] Work Phone: [facility] 06-25-2023 05:47-0400 Body mass index (BMI) [Ratio] 15.7 kg/m2 [employer] Jeanna Davis [employer] Work Phone: [facility] 06-25-2023 05:47-0400 Body temperature 96.8 [degF] [employer] Jeanna Davis [employer] Work Phone: [facility] 06-25-2023 05:47-0400 Body weight 44.45 kg [employer] Jeanna Davis [employer] Work Phone: [facility] 06-25-2023 05:47-0400 Diastolic blood pressure 75 mm[Hg] [employer] Jeanna Davis [employer] Work Phone: [facility] 06-25-2023 05:47-0400 Heart rate 62 /min [employer] Jeanna Davis [employer] Work Phone: [facility] 06-25-2023 05:47-0400 Respiratory rate 16 /min [employer] Jeanna Davis [employer] Work Phone: [facility] 06-25-2023 05:47-0400 SaO2% (BldA) [Mass fraction] 96 % [employer] Jeanna Davis [employer] Work Phone: [facility] 06-25-2023 05:47-0400 Systolic blood pressure 136 mm[Hg] [employer] Jeanna Davis [employer] Work Phone: [facility] 06-12-2023 08:36-0400 Body height 167.[address] Sin Lujan Work Phone: [facility] 06-12-2023 08:36-0400 Body weight 45.[address] Sin Lujan Work Phone: [facility] 06-12-2023 08:36-0400 Heart rate 59 /min Dr. Sin Lujan Work Phone: [facility] 06-12-2023 08:36-0400 Inhaled oxygen flow rate 2 L/min Dr. Sin Lujan Work Phone: [facility] 06-12-2023 08:36-0400 SaO2% (BldA) [Mass fraction] 89 % Dr. Sin Lujan Work Phone: [facility] 04-09-2023 14:31-0400 Body height 167.[address] Sin Lujan Work Phone: [facility] 04-09-2023 14:31-0400 Body mass index (BMI) [Ratio] 16 kg/m2 Dr. Sin Lujan Work Phone: [facility] 04-09-2023 14:31-0400 Body weight 44.[address] Sin Lujan Work Phone: [facility] 04-09-2023 14:31-0400 Diastolic blood pressure 65 mm[Hg] Dr. Sin Lujan Work Phone: [facility] 04-09-2023 14:31-0400 Heart rate 59 /min Dr. Sin Lujan Work Phone: [facility] 04-09-2023 14:31-0400 Respiratory rate 18 /min Dr. Sin Lujan Work Phone: [facility] 04-09-2023 14:31-0400 Systolic blood pressure 113 mm[Hg] Dr. Sin Lujan Work Phone: [facility] 02-17-2023 07:47-0400 Body height 167.[address] Sin Lujan Work Phone: [facility] 02-17-2023 07:47-0400 Body mass index (BMI) [Ratio] 16 kg/m2 Dr. Sin Lujan Work Phone: [facility] 02-17-2023 07:47-0400 Body temperature 97 [degF] Dr. Sin Lujan Work Phone: [facility] 02-17-2023 07:47-0400 Body weight 44.[address] Sin Lujan Work Phone: [facility] 02-17-2023 07:47-0400 Diastolic blood pressure 58 mm[Hg] Dr. Sin Lujan Work Phone: [facility] 02-17-2023 07:47-0400 Heart rate 69 /min Dr. Sin Lujan Work Phone: [facility] 02-17-2023 07:47-0400 Respiratory rate 18 /min Dr. Sin Lujan Work Phone: [facility] 02-17-2023 07:47-0400 SaO2% (BldA) [Mass fraction] 95 % Dr. Sin Lujan Work Phone: [facility] 02-17-2023 07:47-0400 Systolic blood pressure 98 mm[Hg] Dr. Sin Lujan Work Phone: 6(249)939-373876 [place] [address] 01-01-2023 13:19-0500 Body mass index (BMI) [Ratio] 16.2 kg/m2 Dr. Sin Lujan Work Phone: 3(283)476-310676 [place] [address] 01-01-2023 13:19-0500 Body temperature 96.9 [degF] Dr. Sin Lujan Work Phone: 3(709)091-210757 [address] 01-01-2023 13:19-0500 Body weight 45.[address] Sin Lujan Work Phone: 6(575)079-989076 [place] [address] 01-01-2023 13:19-0500 Diastolic blood pressure 77 mm[Hg] Dr. Sin Lujan Work Phone: [facility] 01-01-2023 13:19-0500 Heart rate 67 /min Dr. Sin Lujan Work Phone: 2(187)864-790776 [place] [address] 01-01-2023 13:19-0500 Respiratory rate 18 /min Dr. Sin Lujan Work Phone: [facility] 01-01-2023 13:19-0500 SaO2% (BldA) [Mass fraction] 92 % Dr. Sin Lujan Work Phone: 8(741)334-769876 [place] [address] 01-01-2023 13:19-0500 Systolic blood pressure 143 mm[Hg] Dr. Sin Lujan Work Phone: [facility] 09-05-2022 07:40-0400 Body height 167.[address] Sin Lujan Work Phone: [facility] Work Phone: 09-05-2022 07:40-0400 Body mass index (BMI) [Ratio] 17.2 kg/m2 Dr. Sin Lujan Work Phone: [facility] Work Phone: 09-05-2022 07:40-0400 Body temperature 98 [degF] Dr. Sin Lujan Work Phone: [facility] Work Phone: 09-05-2022 07:40-0400 Body weight 48.[address] Sin Lujan Work Phone: [facility] Work Phone: 09-05-2022 07:40-0400 Diastolic blood pressure 73 mm[Hg] Dr. Sin Lujan Work Phone: [facility] Work Phone: 09-05-2022 07:40-0400 Heart rate 66 /min Dr. Sin Lujan Work Phone: [facility] Work Phone: 09-05-2022 07:40-0400 Respiratory rate 16 /min Dr. Sin Lujan Work Phone: [facility] Work Phone: 09-05-2022 07:40-0400 SaO2% (BldA) [Mass fraction] 99 % Dr. Sin Lujan Work Phone: [facility] Work Phone: 09-05-2022 07:40-0400 Systolic blood pressure 160 mm[Hg] Dr. Sin Lujan Work Phone: [facility] Work Phone: 07-31-2022 12:46-0400 Body height 167.[address] Sin Lujan Work Phone: [facility] Work Phone: 07-31-2022 12:46-0400 Body weight 45.[address] Sin Lujan Work Phone: [facility] Work Phone: 07-31-2022 12:46-0400 Heart rate 79 /min Dr. Sin Lujan Work Phone: [facility] Work Phone: 07-31-2022 12:46-0400 SaO2% (BldA) [Mass fraction] 97 % Dr. Sin Lujan Work Phone: [facility] Work Phone: 07-04-2022 10:35-0400 Body mass index (BMI) [Ratio] 16.5 kg/m2 Dr. Sin Lujan Work Phone: [facility] Work Phone: 07-04-2022 10:35-0400 Body temperature 95.2 [degF] Dr. Sin Lujan Work Phone: [facility] Work Phone: 07-04-2022 10:35-0400 Body weight 46.[address] Sin Lujan Work Phone: [facility] Work Phone: 07-04-2022 10:35-0400 Diastolic blood pressure 76 mm[Hg] Dr. Sin Lujan Work Phone: [facility] Work Phone: 07-04-2022 10:35-0400 Heart rate 68 /min Dr. Sin Lujan Work Phone: [facility] Work Phone: 07-04-2022 10:35-0400 Respiratory rate 18 /min Dr. Sin Lujan Work Phone: [facility] Work Phone: 07-04-2022 10:35-0400 SaO2% (BldA) [Mass fraction] 96 % Dr. Sin Lujan Work Phone: [facility] Work Phone: 07-04-2022 10:35-0400 Systolic blood pressure 130 mm[Hg] Dr. Sin Lujan Work Phone: [facility] Work Phone: 05-28-2022 12:54-0400 Body height 167.64 cm No PCP None MB-Gvvqzgwxwr-SC C [employer] Work Phone: 05-28-2022 12:54-0400 Body mass index (BMI) [Ratio] 17.24 kg/m2 No PCP None LK-Nxmkldatdd-RDW [facility] Work Phone: 05-28-2022 12:54-0400 Body surface area Derived from formula 1.53 m2 No PCP None GR-Qawzvzrsre-EHX [facility] Work Phone: 05-28-2022 12:54-0400 Body temperature 97.2 [degF] No PCP None ZX-Fjfvtqyths-X MC [facility] Work Phone: 05-28-2022 12:54-0400 Body weight 48.44 kg No PCP None GE-Hjufnxomjh-WP C [facility] Work Phone: 05-28-2022 12:54-0400 Diastolic blood pressure 55 mm[Hg] No PCP None BV-Wpvoinjmub-BRS [facility] Work Phone: 05-28-2022 12:54-0400 Heart rate 68 /min No PCP None RW-Mhbcwrdbjb-HA C [facility] Work Phone: 05-28-2022 12:54-0400 SaO2% (BldA) [Mass fraction] 98 % No PCP None SJ-Nenpzvszsj-KLZ [facility] Work Phone: 05-28-2022 12:54-0400 Systolic blood pressure 111 mm[Hg] No PCP None XN-Vxbkywynte-XBT [facility] Work Phone: 05-28-2022 12:54-0400 0 1 No PCP None QU-Pmmpdvmfap-SE C [facility] Work Phone: Comment on above: [employer] 05-13-2022 08:14-0400 Body mass index (BMI) [Ratio] 16.9 kg/m2 Dr. Sin Lujan Work Phone: [facility] Work Phone: 05-13-2022 08:14-0400 Body temperature 97.4 [degF] Dr. Sin Lujan Work Phone: [facility] Work Phone: 05-13-2022 08:14-0400 Body weight 47.[address] Sin Lujan Work Phone: [facility] Work Phone: 05-13-2022 08:14-0400 Diastolic blood pressure 62 mm[Hg] Dr. Sin Lujan Work Phone: [facility] Work Phone: 05-13-2022 08:14-0400 Heart rate 67 /min Dr. Sin Lujan Work Phone: [facility] Work Phone: 05-13-2022 08:14-0400 Respiratory rate 16 /min Dr. Sin Lujan Work Phone: [facility] Work Phone: 05-13-2022 08:14-0400 SaO2% (BldA) [Mass fraction] 99 % Dr. Sin Lujan Work Phone: [facility] Work Phone: 05-13-2022 08:14-0400 Systolic blood pressure 126 mm[Hg] Dr. Sin Lujan Work Phone: [facility] Work Phone: 02-21-2022 13:07-0400 Body height 167.[address] Sin Lujan Work Phone: [facility] Work Phone: 02-21-2022 13:07-0400 Body mass index (BMI) [Ratio] 16.1 kg/m2 Dr. Sin Lujan Work Phone: [facility] Work Phone: 02-21-2022 13:07-0400 Body temperature 99.1 [degF] Dr. Sin Lujan Work Phone: [facility] Work Phone: 02-21-2022 13:07-0400 Body weight 45.[address] Sin Lujan Work Phone: [facility] Work Phone: 02-21-2022 13:07-0400 Diastolic blood pressure 75 mm[Hg] Dr. Sin Lujan Work Phone: [facility] Work Phone: 02-21-2022 13:07-0400 Heart rate 61 /min Dr. Sin Lujan Work Phone: [facility] Work Phone: 02-21-2022 13:07-0400 Respiratory rate 17 /min Dr. Sin Lujan Work Phone: [facility] Work Phone: 02-21-2022 13:07-0400 SaO2% (BldA) [Mass fraction] 95 % Dr. Sin Lujan Work Phone: [facility] Work Phone: 02-21-2022 13:07-0400 Systolic blood pressure 130 mm[Hg] Dr. Sin Lujan Work Phone: [facility] Work Phone: 02-21-2022 13:07-0400 Body height 167.[address] Sin Lujan Work Phone: [facility] Work Phone: 02-21-2022 13:07-0400 Body mass index (BMI) [Ratio] 16.1 kg/m2 Dr. Sin Lujan Work Phone: [facility] Work Phone: 02-21-2022 13:07-0400 Body temperature 99.1 [degF] Dr. Sin Lujan Work Phone: [facility] Work Phone: 02-21-2022 13:07-0400 Body weight 45.[address] Sin Lujan Work Phone: [facility] Work Phone: 02-21-2022 13:07-0400 Diastolic blood pressure 75 mm[Hg] Dr. Sin Lujan Work Phone: [facility] Work Phone: 02-21-2022 13:07-0400 Heart rate 61 /min Dr. Sin Lujan Work Phone: [facility] Work Phone: 02-21-2022 13:07-0400 Respiratory rate 17 /min Dr. Sin Lujan Work Phone: [facility] Work Phone: 02-21-2022 13:07-0400 SaO2% (BldA) [Mass fraction] 95 % Dr. Sin Lujan Work Phone: [facility] Work Phone: 02-21-2022 13:07-0400 Systolic blood pressure 130 mm[Hg] Dr. Sin Lujan Work Phone: [facility] Work Phone: 01-10-2022 08:05-0500 Body mass index (BMI) [Ratio] 17.3 kg/m2 Dr. Sin Lujan Work Phone: [facility] Work Phone: 01-10-2022 08:05-0500 Body temperature 97.3 [degF] Dr. Sin Lujan Work Phone: [facility] Work Phone: 01-10-2022 08:05-0500 Body weight 48.[address] Sin Lujan Work Phone: [facility] Work Phone: 01-10-2022 08:05-0500 Diastolic blood pressure 60 mm[Hg] Dr. Sin Lujan Work Phone: [facility] Work Phone: 01-10-2022 08:05-0500 Heart rate 77 /min Dr. Sin Lujan Work Phone: [facility] Work Phone: 01-10-2022 08:05-0500 Respiratory rate 18 /min Dr. Sin Lujan Work Phone: [facility] Work Phone: 01-10-2022 08:05-0500 SaO2% (BldA) [Mass fraction] 95 % Dr. Sin Lujan Work Phone: [facility] Work Phone: 01-10-2022 08:05-0500 Systolic blood pressure 140 mm[Hg] Dr. Sin Lujan Work Phone: [facility] Work Phone: 01-10-2022 07:05-0500 Body height 167.[address] Sin Lujan Work Phone: [facility] Work Phone: 01-10-2022 07:05-0500 Body mass index (BMI) [Ratio] 17.3 kg/m2 Dr. Sin Lujan Work Phone: [facility] Work Phone: 01-10-2022 07:05-0500 Body temperature 97.3 [degF] Dr. Sin Lujan Work Phone: [facility] Work Phone: 01-10-2022 07:05-0500 Body weight 48.[address] Sin Lujan Work Phone: [facility] Work Phone: 01-10-2022 07:05-0500 Diastolic blood pressure 60 mm[Hg] Dr. Sin Lujan Work Phone: [facility] Work Phone: 01-10-2022 07:05-0500 Heart rate 77 /min Dr. Sin Lujan Work Phone: [facility] Work Phone: 01-10-2022 07:05-0500 Respiratory rate 18 /min Dr. Sin Lujan Work Phone: [facility] Work Phone: 01-10-2022 07:05-0500 SaO2% (BldA) [Mass fraction] 95 % Dr. Sin Lujan Work Phone: [facility] Work Phone: 01-10-2022 07:05-0500 Systolic blood pressure 140 mm[Hg] Dr. Sin Lujan Work Phone: [facility] Work Phone: 03-05-2017 16:53-0400 BMI (Body Mass Index) 16.91 kg/m2 Ana Rosa Bustillo LPN [facility] Work Phone: 03-05-2017 16:53-0400 BP Diastolic 68 mm[Hg] Ana Rosa Bustillo LPN [facility] Work Phone: 03-05-2017 16:53-0400 BP Systolic 120 mm[Hg] Ana Rosa Bustillo TRAFFIC CONTROL TECHNICIAN [facility] Work Phone: 03-05-2017 16:53-0400 Height 167.64 cm Ana Rosa [facility] Work Phone: 03-05-2017 16:53-0400 Pulse (Heart Rate) 92 /min Ana [facility] Work Phone: 03-05-2017 16:53-0400 Pulse Oximetry 98 % Ana Rosa [facility] Work Phone: 03-05-2017 16:53-0400 Respiratory Rate 16 /min Ana Rosa [facility] Work Phone: 03-05-2017 16:53-0400 Weight 47.54 kg Ana Rosa [facility] Work Phone: 02-18-2017 14:22-0400 Body Temperature 97.9 [degF] Ana Rosa [facility] Work Phone: 02-18-2017 14:22-0400 BSA (Body Surface Area) 1.53 m2 Ana Rosa [facility] Work Phone: 02-18-2017 14:22-0400 Height 167.64 cm Ana Rosa [facility] Work Phone: 02-18-2017 14:22-0400 Weight 48.53 kg Ana Rosa [facility] Work Phone: Encounters Encounter Date Encounter Type Care Provider Facility Start: 05-31-2025 ambulatory Irais Rubi ty:[facility] Start: 05-20-2025 End: 05-20-2025 Emergency department patient visit Dr. 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 Bird Lujan MD Work Phone: -[facility] Start: 05-08-2025 End: 05-08-2025 Emergency department patient visit Dr. Bird Lujan MD Work Phone: -Emergency Department Work Phone: Start: 04-11-2025 End: 04-11-[address] Bird Lujan MD Work Phone: [facility] Work Phone: Start: 04-11-2025 End: 04-11-[address] Christy Huerta DO -Laboratory Specimen Work Phone: Start: 04-11-2025 End: 04-11-2025 Dr. Christy Huerta DO -Laboratory Specime n Work Phone: Start: 04-11-2025 End: 04-11-2025 ambulatory Bird Lujan Facility:[facility] Start: 04-09-2025 End: 04-09-2025 Dr. Bird Lujan MD Work Phone: -Emergency Department Work Phone: Start: 04-09-2025 End: 04-09-2025 Emergency department patient visit Dr. Bird Lujan MD Work Phone: [facility] Work Phone: Start: 04-09-2025 End: 04-09-[address] Bird Lujan MD Work Phone: [facility] Work Phone: Start: 04-09-2025 End: 04-09-[address] Christy Huerta DO -Laboratory Work Phone: Start: 04-09-2025 End: 04-09-2025 Dr. Christy Huerta DO -Laboratory Work Phone: Start: 04-09-2025 End: 04-09-2025 ambulatory Dale Tai Facility:[facility] Start: 03-22-2025 End: 03-22-2025 Patient encounter procedure Kayleigh Payne PA -[facility] Work Phone: Start: 03-22-2025 End: 03-22-2025 Kayleigh BHARDWAJ [facility] Work Phone: Start: 03-22-2025 End: 03-22-[address] Christy Huerta DO Work Phone: [facility] Work Phone: Start: 03-10-2025 ambulatory Bird Lujan [facility]ardik lity:[facility] Start: 01-27-2025 End: 01-27-2025 Patient encounter procedure Brenda Medrano BOARDING ROOM FIXER-C -[facility] Work Phone: Start: 01-27-2025 End: 01-27-2025 Brenda Medrano BOARDING ROOM FIXER-C -[facility] Work Phone: Start: 01-27-2025 End: 01-27-2025 ambulatory Bird Lujan Facility:[facility] Start: 01-13-2025 Encounter for other preprocedural examination Favian Sinclair [facility] Start: 01-11-2025 End: 01-11-2025 Patient encounter procedure Kayleigh BHARDWAJ [facility] V[facility] Work Phone: Start: 01-11-2025 End: 01-11-2025 Kayleigh BHARDWAJ [facility] Work Phone: Start: 01-11-2025 End: 01-11-2025 ambulatory Bird Lujan Facility:[facility] Start: 01-11-2025 End: 01-11-[address] Bird Lujan MD Work Phone: [facility] Work Phone: Start: 01-11-2025 End: 01-11-2025 Patient encounter procedure Jeanna Davis BOARDING ROOM FIXER-C -Cat Scan [facility] Work Phone: Start: 01-11-2025 End: 01-11-2025 Jeanna Davis BOARDING ROOM FIXER-C -Cat Scan, [facility] Work Phone: Start: 01-11-2025 End: 01-11-2025 ambulatory [facility] Facility:[facility] Start: 01-06-2025 ambulatory [facility] Facility:[facility] Start: 01-06-2025 Dr. He Cat MD -[facility] Work Phone: Start: 01-05-2025 Dr. He Cat MD -[facility] Work Phone: Start: 01-05-2025 Dr. Terrance Alva DO -[facility] -PMW Start: 01-04-2025 Dr. He Cat MD -[facility] Work Phone: Start: 01-03-2025 End: 01-06-2025 Evaluation and management of inpatient [facility] Facility:[facility] Start: 01-03-2025 ambulatory [facility] Faci lity:[facility] Start: 01-03-2025 End: 01-06-2025 Dr. He Cat MD -Progressive [facility] U nit Work Phone: Start: 12-30-2024 End: 12-30-2024 Telephone encounter Kidney Txp Coordinators Work Phone: [facility] Comment on above: Referral - Kidney Tx p Start: 12-30-2024 [facility] Start: 12-29-2024 End: 12-29-2024 Telephone encounter Kidney Txp Coordinators Work Phone: [facility] Comment on above: Referral - Kidney Tx p Start: 12-28-2024 ambulatory [facility] Facility:[facility] Start: 12-28-2024 Dr. Favian Sinclair MD -[facility] -BVS Start: 12-28-2024 End: 12-28-2024 Dr. Favian Sinclair MD -S[facility] Day [facility] Start: 12-28-2024 End: 12-28-2024 ambulatory [facility] Facility:[facility] Start: 12-24-2024 End: 12-24-2024 Telephone encounter Kidney Txp Coordinators Work Phone: [facility] Comment on above: Referral - Kidney Tx p Start: 12-17-2024 ambulatory Tee Aguirre Fa cility:[facility] Start: 12-17-2024 End: 12-17-2024 Dr. Tee Aguirre MD -[facility] Start: 12-16-2024 End: 12-16-2024 Mynor Anthony BOARDING ROOM FIXER-C -[facility] Work Phone: Start: 12-16-2024 End: 12-17-2024 ambulatory Kayleigh Payne Facility:[facility] Start: 12-02-2024 End: 12-02-2024 Dr. Favian Sinclair [facility] Work Phone: Start: 12-02-2024 End: 12-02-2024 ambulatory Christy Lee [place] Start: 11-20-2024 End: 11-20-2024 Dr. Justin Parisi DO -Emergency Department Work Phone: Start: 11-20-2024 End: 11-20-2024 Emergency department patient visit Justin Parisi Facility:[facility] Start: 11-04-2024 End: 11-04-2024 Emergency department patient visit Ed Physician Provider Facility:[facility] Start: 11-04-2024 End: 11-04-2024 ED PHYSICIAN PROVIDER -Emergency Departm ent Work Phone: Start: 11-04-2024 End: 11-04-2024 ambulatory Bird Lujan [place] Start: 11-02-2024 ambulatory Favian Sinclair Facility:[facility] Start: 11-02-2024 End: 11-02-2024 Dr. Favian Sinclair MD -[facility] Start: 11-02-2024 End: 11-02-2024 ambulatory Christy Huerta Facility:[facility] Start: 10-16-2024 End: 10-16-2024 Jeanna Davis NP-C -Cat Scan, [facility] Work Phone: Start: 10-16-2024 End: 10-16-2024 ambulatory Jeanna Davis NP Facility:[facility] Start: 10-07-2024 End: 10-07-2024 Brenda Medrano BOARDING ROOM FIXER-C -[facility] Work Phone: Start: 10-07-2024 End: 10-07-2024 ambulatory Bird Lujan [place] Start: 08-31-2024 End: 08-31-2024 ambulatory Tamifany Alfredo CONTRACTING ANALYST - COUNCILPERSON Work Phone: [facility] Lung Nodule [facility] Start: 08-31-2024 End: 08-31-2024 Patient encounter procedure Tami Alvin Alfredo CONTRACTING ANALYST - COUNCILPERSON Work Phone: [facility] Lung Nodule [facility] Comment on above: Chronic respiratory failure with hypoxia and hypercapnia (HCC) [J96.11, J96.12] (Primary Dx); Centrilobular emphysema (HCC) [J43.2]; Other dysphagia [R13.19]; Hx of bacterial pneumonia [Z87.01] Start: 08-27-2024 End: 08-27-2024 ambulatory Tami MariUriel Alfredo CONTRACTING ANALYST - COUNCILPERSON Work Phone: [facility] Lung Nodule [facility] Start: 08-27-2024 End: 08-27-2024 Patient encounter procedure Tami GuerraUriel Alfredo CONTRACTING ANALYST - COUNCILPERSON Work Phone: [facility] Lung Nodule [facility] Comment on above: Chronic respiratory failure with hypoxia and hypercapnia (HCC) [J96.11, J96.12] (Primary Dx); Centrilobular emphysema (HCC) [J43.2]; History of recent pneumonia [Z87.01]; Other dysphagia [R13.19] Start: 08-25-2024 End: 08-25-2024 ambulatory Tami Alvin Alfredo CONTRACTING ANALYST - COUNCILPERSON Work Phone: [facility] Lung Nodule [facility] Start: 08-25-2024 End: 08-25-2024 Patient encounter procedure Tami Alfredo CONTRACTING ANALYST - COUNCILPERSON Work Phone: [facility] Lung Nodule [facility] Comment on above: Chronic respiratory failure with hypoxia and hypercapnia (HCC) [J96.11, J96.12] (Primary Dx); Centrilobular emphysema (HCC) [J43.2]; Bilateral pleural effusion [J90]; Hx of bacterial pneumonia [Z87.01]; Cigarette nicotine dependence without complication [F17.210] Start: 08-13-2024 End: 08-13-2024 ambulatory ELIZABETH TYLRE [facility] Start: 08-12-2024 End: 08-24-2024 Evaluation and management of inpatient Lucina Marie Cole ANDERSON Work Phone: [facility] 6W Start: 08-11-2024 End: 08-11-2024 ambulatory ELIESER SOLIS [facility] Start: 08-11-2024 End: 11-10-2024 Subsequent hospital visit by physician Elieser Solis MD Work Phone: [facility] Comment on above: SDH (subdural hemato ma) (HCC) SDH (subdural hemato ma) (HCC) (Primary Dx) Start: 08-10-2024 End: 08-10-2024 ambulatory MADELINE MONTALVO [facility] Start: 07-28-2024 End: 07-28-2024 ambulatory TORITO KEYSHAWN [facility] Start: 07-27-2024 End: 07-29-[address] [facility] Start: 07-26-2024 End: 08-10-2024 Evaluation and management of inpatient Colin Peoples MD Work Phone: [facility] Trauma Neuro Progressive Care Unit PCU 3W Start: 07-24-2024 End: 07-24-2024 ambulatory Lani Dora Samaniego [place] Start: 07-23-2024 ambulatory Lani Samaniego [place] Start: 07-23-2024 End: 07-26-2024 Evaluation and management of inpatient Lani Dora Samaniego Facility:[facility] Start: 07-13-2024 ambulatory Christy Huerta Facility: [facility] Start: 07-01-2024 End: 07-01-2024 ambulatory Bird Lujan [place] Start: 03-02-2024 End: 03-02-[address] Bird Lujan Work Phone: [facility] Work Phone: Start: 03-02-2024 End: 03-02-[address] Bird Lujan Work Phone: [facility] [place]-Cardiovascula r Services Work Phone: Start: 02-05-2024 End: 02-05-[address] Sin Lujan Work Phone: [facility] Work Phone: Start: 02-02-2024 End: 02-02-[address] Sin Lujan Work Phone: [facility] Work Phone: Start: 02-02-2024 End: 02-02-[address] Sin Lujan Work Phone: [facility], [facility] Work Phone: Start: 01-15-2024 End: 01-15-[address] Sin Lujan Work Phone: [facility] Work Phone: Start: 01-15-2024 End: 01-15-[address] Sin Lujan Work Phone: [facility]-Laboratory, Phy Office 3rd Wvr Start: 12-03-2023 End: 12-03-[address] Sin Luajn Work Phone: [facility] Endocr[facility] Work Phone: Start: 11-18-2023 End: 11-18-[address] Sin Lujan Work Phone: [facility] Work Phone: Start: 11-18-2023 End: 11-18-[address] Sin Lujan Work Phone: [facility] Work Phone: Start: 10-29-2023 End: 10-29-[address] Sin Lujan Work Phone: [facility] Work Phone: Start: 10-29-2023 End: 10-29-[address] Sin Lujan Work Phone: [facility]-Laboratory, Specimen Work Phone: Start: 10-29-2023 End: 10-29-[address] Sin Lujan Work Phone: [facility] Work Phone: Start: 10-20-2023 End: 10-20-[address] Sin Lujan Work Phone: [facility] Work Phone: Start: 10-20-2023 End: 10-20-[address] Sin Lujan Work Phone: [facility], [facility] Work Phone: Start: 10-13-2023 End: 10-13-[address] Sin Lujan Work Phone: [facility] Work Phone: Start: 10-13-2023 End: 10-13-[address] [facility] Start: 10-09-2023 End: 10-09-[address] Sin Lujan Work Phone: [facility] Work Phone: Start: 10-09-2023 End: 10-09-2023 Patient encounter procedure BOARDING ROOM FIXER-C Jeanna Davis NP Work Phone: [facility], Phy Office 3rd Flr Start: 10-06-2023 End: 10-06-2023 ambulatory BOARDING ROOM FIXER-C Jeanna Davis BOARDING ROOM FIXER Work Phone: [facility] Work Phone: Start: 10-06-2023 End: 10-06-2023 Patient encounter procedure BOARDING ROOM FIXER-Marquis Davis BOARDING ROOM FIXER Work Phone: [facility]-Laboratory, Phy Office 3rd Flr Start: 08-06-2023 End: 08-06-2023 Patient encounter procedure BOARDING ROOM FIXER-Marquis Davis BOARDING ROOM FIXER Work Phone: [facility], [facility] Work Phone: Start: 07-14-2023 End: 07-14-2023 Patient encounter procedure BOARDING ROOM FIXER-Marquis Davis BOARDING ROOM FIXER Work Phone: [facility] Endocrinology Work Phone: Start: 06-25-2023 End: 06-25-2023 Patient encounter procedure BOARDING ROOM FIXER-Marquis Davis BOARDING ROOM FIXER Work Phone: [facility] Work Phone: Start: 06-19-2023 End: 06-19-[address] Sin Lujan Work Phone: [facility] Work Phone: Start: 06-19-2023 End: 06-19-[address] Sin Lujan Work Phone: [facility] [place]-Laboratory, y Office 3rd Flr Start: 06-12-2023 Non-patient / Non-visit Dr. Aashish Lujan Work Phone: [facility] Start: 06-12-2023 End: 06-12-[address] Sin Lujan Work Phone: [facility] [place]-Pulmonary Services/Neurology Work Phone: Start: 06-02-2023 End: 06-02-[address] Sin Lujan Work Phone: [facility] Work Phone: Start: 06-02-2023 End: 06-02-[address] Sin Lujan Work Phone: [facility] Work Phone: Start: 05-20-2023 Non-patient / Non-visit Dr. Aashish Lujan Work Phone: [facility] Start: 05-19-2023 End: 05-19-[address] Sin Lujan Work Phone: [facility] Work Phone: Start: 05-19-2023 End: 05-19-[address] Sin Lujan Work Phone: [facility] [place]-Pulmonary Services/Neurology Work Phone: Start: 04-09-2023 End: 04-09-[address] Sin Lujan Work Phone: [facility] Work Phone: Start: 03-17-2023 End: 03-17-[address] Sin Lujan Work Phone: [facility] [place]-Laboratory, Phy Office 3rd Wvr Start: 03-06-2023 Non-patient / Non-visit Dr. Aashish Lujan Work Phone: [facility] Work Phone: Start: 02-28-2023 Non-patient / Non-visit Dr. Aashish Lujan Work Phone: [facility] Start: 02-27-2023 Non-patient / Non-visit Dr. Aashish Lujan Work Phone: [facility] Start: 02-27-2023 End: 02-27-[address] Sin Lujan Work Phone: [facility] Work Phone: Start: 02-27-2023 End: 02-27-[address] Sin Lujan Work Phone: [facility] [place]-Cardiovascula r Services Start: 02-26-2023 End: 02-26-[address] Sin Lujan Work Phone: [facility] Work Phone: Start: 02-26-2023 End: 02-26-[address] Sin Lujan Work Phone: [facility]-Laboratory Start: 02-17-2023 End: 02-17-[address] [facility] Start: 01-01-2023 End: 01-01-[address] Sin Lujan Work Phone: [facility] Endocrinology Start: 10-11-2022 End: 10-11-[address] Sin Lujan Work Phone: [facility] Work Phone: Start: 10-11-2022 End: 10-11-[address] Sin Lujan Work Phone: [facility] Start: 09-05-2022 End: 09-05-[address] [facility] Start: 08-05-2022 Non-patient / Non-visit Dr. Aashish Lujan Work Phone: [facility] Start: 07-31-2022 End: 07-31-[address] Sin Lujan Work Phone: [facility] [place]-Pulmonary Services/Neurology Start: 07-29-2022 Non-patient / Non-visit Dr. Aashish Lujan Work Phone: [facility] Start: 07-29-2022 End: 07-29-[address] Sin Lujan Work Phone: [facility] Work Phone: Start: 07-29-2022 End: 07-29-[address] Sin Lujan Work Phone: [facility] [place]-Pulmonary Services/Neurology Start: 07-04-2022 End: 07-04-[address] Sin Lujan Work Phone: [facility] Endocrin[facility] Start: 06-09-2022 Chart Update No PCP None [facility] Work Phone: Start: 05-29-2022 Chart Update No PCP None [facility] Work Phone: Start: 05-29-2022 End: 05-29-[address] Sin Lujan Work Phone: [facility] Start: 05-28-2022 Patient encounter procedure No PCP None [facility] [place] [address] Work Phone: Start: 05-13-2022 End: 05-13-[address] Sin Lu[facility] Start: 05-02-2022 End: 05-02-[address] Sin Lujan Work Phone: [facility]-Laboratory Start: 02-21-2022 End: 02-21-[address] Sin Lu[facility] Start: 02-18-2022 End: 02-18-[address] [facility] Start: 02-08-2022 End: 02-08-[address] Sin Lujan Work Phone: [facility]-Laboratory Start: 01-10-2022 End: 01-10-[address] Sin Lujan Work Phone: [facility] Endocrinology Start: 12-24-2021 End: 12-24-[address] Sin Lujan Work Phone: [facility]-Laboratory Start: 12-19-2021 End: 12-19-[address] Sin Lujan [facility] Patient encounter status No PCP None [id number] [place] [address] Work Phone: Procedures Date Procedure Procedure Detail Performing Clinician Start: 05-20-[address] Bird Lujan MD Work Phone: Start: 05-08-2025 Computed tomography of abdomen and pelvis with intravenous contrast Dr. Bird Lujan MD Work Phone: Start: 05-08-[address] Bird Lujan MD Work Phone: Start: 05-08-2025 X-ray of [...] Glucose quantitative blood xcpt reagent strip Kemar Dyers DO Work Phone: Start: 08-22-2024 Glucose quantitative blood xcpt reagent strip Kemar Dyers DO Work Phone: Start: 08-22-2024 Basic metabolic [...] comb ination ph pco2 po2 co2 hco3 Sandyblanca Dykes Sain DO Work Phone: Start: 08-20-2024 Blood gases [...] 08-19-2024 POCT GLUCOSE METER UNSOLICITED RESULTS Kemar Adamse DO Work Phone: Start: 08-19-2024 POCT GLUCOSE [...] 08-14-2024 Glucose quantitative blood xcpt reagent strip Elziabeth Tyler MD Work Phone: Start: 08-14-2024 Glucose [...] ination ph pco2 po2 co2 hco3 Emiliano Drosey MD Work Phone: Start: 08-12-2024 Cerebral perfusion a nalys ct w/blood flow&volume May Wang DO Work Phone: Start: 08-12-2024 Ct angiography head w/contrast/noncontrast May Wang DO Work Phone: Start: 08-12-2024 Compatibility each u nit electronic April Soto MD Start: 08-12-2024 End: 08-12-2024 TRANSFUSE RED BLOOD CELLS April Soto MD Start: 08-12-2024 Antibody screen REYNALDO PEOPLES Comment on above: Performed By: #### L [id number] ####Typesetter Apprentice: MARY SOTELO ([phone])[facility] ([address] Start: 08-12-2024 Blood typing serologic abo April Soto MD Start: 08-12-2024 End: 08-12-2024 Cyanocobalamin vitamin b-12 May Wang DO Work Phone: Start: 08-12-2024 Assay of troponin quantitative Sapphire Bianchi PA-C Work Phone: Start: 08-12-2024 Blood gases any comb ination ph pco2 po2 co2 hco3 Ana Rosakosta Irizarry Raegan DO Work Phone: Start: 08-12-2024 Bacteria identified in Blood by Culture Sapphire Bianchi PA-C Work Phone: Start: 08-12-2024 Blood gases, venous measurement Sapphire Arias KUMAR Work Phone: Start: 08-12-2024 Comprehensive metabo lic panel Sapphirefrank Bianchi PA-C Work Phone: Start: 08-12-2024 HC CUL TYP ID BLD PT HGN 6+ TRGT Sapphirekanwal Bianchi PA-C Work Phone: Start: 08-12-2024 Radiologic exam ches t single view Sapphirefrank Bianchi PA-C Work Phone: Start: 08-12-2024 Ecg routine ecg w/le ast 12 lds i&r only Sapphirekanwal Bianchi PA-C Work Phone: Start: 08-11-2024 Ct head/brain w/o co ntrast material Elieser Solis MD Work Phone: Start: 08-10-2024 Glucose quantitative blood xcpt reagent strip Fly [place] DO Work Phone: Start: 08-10-2024 Glucose quantitative blood xcpt reagent strip Fly [place] DO Work Phone: Start: 08-10-2024 End: 08-10-2024 Glucose quantitative blood xcpt reagent strip Fly [place] DO Work Phone: Start: 08-10-2024 End: 08-10-2024 Glucose quantitative blood xcpt reagent strip Fly Holli DO Work Phone: Start: 08-10-2024 Basic metabolic pane l calcium total May Shericezan Wang DO Work Phone: Start: 08-10-2024 Complement antigen e ach component Saroj Gaffney MD Work Phone: Start: 08-09-2024 Glucose quantitative blood xcpt reagent strip Fly [place] DO Work Phone: Start: 08-09-2024 End: 08-09-2024 Creatinine other source Saroj Gaffney MD Work Phone: Start: 08-09-2024 Urnls dip stick/tabl et reagent auto microscopy Saroj Gaffney MD Work Phone: Start: 08-09-2024 Glucose quantitative blood xcpt reagent strip Fly Beckmanffee DO Work Phone: Start: 08-09-2024 Glucose quantitative blood xcpt reagent strip Fly Beckmanffee DO Work Phone: Start: 08-09-2024 Glucose quantitative blood xcpt reagent strip Fly Beckmanffee DO Work Phone: Start: 08-09-2024 End: 08-09-2024 [...] total May Wang DO Work Phone: Start: 08-08-2024 Glucose quantitative blood xcpt reagent strip Ino Conte MD Work Phone: Start: 08-08-2024 Glucose quantitative blood xcpt reagent strip Ino Conte MD Work Phone: Start: 08-08-2024 Radiologic exam ches t single view Khai T Beckchichi DO Work Phone: Start: 08-08-2024 Glucose quantitative [...] May Sherice Wang DO Work Phone: Start: 08-06-2024 Glucose quantitative [...] on above: Performed By: #### L [id number] ####Typesetter Apprentice: MARY SOTELO ([phone])[facility] ([address] Start: 08-06-2024 Blood typing serologic abo Jomar Snider MD Work Phone: Start: 08-06-2024 Basic metabolic pane l calcium total May Mckenziezan Wang DO Work Phone: Start: 08-05-2024 Glucose quantitative [...] Radiologic exam ches t single view Ana Rosakosta Irizarry Carlin DO Work Phone: Start: 08-05-2024 Basic metabolic pane l calcium total May Sherice Wang DO Work Phone: Start: 08-04-2024 Glucose quantitative [...] strip Fly Holli DO Work Phone: Start: 08-04-2024 Basic metabolic pane l calcium total May Sherice Wang DO Work Phone: Start: 08-03-2024 Glucose quantitative blood xcpt reagent strip Fly [place] DO Work Phone: Start: 08-03-2024 Glucose quantitative blood xcpt reagent strip Fly Holli DO Work Phone: Start: 08-03-2024 Glucose quantitative blood xcpt reagent strip Fly De La Garza DO Work Phone: Start: 08-03-2024 Glucose quantitative blood xcpt reagent strip Saroj Sadler MD Work Phone: Start: 08-03-2024 End: 08-03-2024 Basic metabolic panel calcium total May Sherice Wang DO Work Phone: Start: 08-02-2024 Glucose quantitative blood xcpt reagent strip Saroj Sadler MD Work Phone: Start: 08-02-2024 Glucose quantitative blood xcpt reagent strip Saroj Sadler MD Work Phone: Start: 08-02-2024 Glucose quantitative blood xcpt reagent strip Kena Sparklemann DO Work Phone: Start: 08-02-2024 Basic metabolic pane l calcium total May Sherice Wang DO Work Phone: Start: 08-01-2024 Glucose quantitative blood xcpt reagent strip Kena Masseyttmann DO Work Phone: Start: 08-01-2024 Glucose quantitative blood xcpt reagent strip Kena Villagranmann DO Work Phone: Start: 08-01-2024 End: 08-01-2024 Renal function panel Joycelyn Diane D O Work Phone: Start: 08-01-2024 Renal function panel Layton Diane DO Work Phone: Start: 08-01-2024 Ecg routine ecg w/le ast 12 lds trcg only w/o i&r Kena Luttmann DO Work Phone: Start: 08-01-2024 End: 08-01-2024 Renal function panel Joycelyn Diane D O Work Phone: Start: 07-31-2024 Glucose quantitative blood xcpt reagent strip Kena Shilpattmann DO Work Phone: Start: 07-31-2024 End: 07-31-2024 Renal function panel Joycelyn Noe O Work Phone: Start: 07-31-2024 Compatibility each u nit electronic Joycelyn Diane DO Work Phone: Start: 07-31-2024 End: 07-31-2024 TRANSFUSE RED BLOOD CELLS Joycelyn rangel DO Work Phone: Start: 07-31-2024 CONTINUOUS VENOVENOU S HEMODIAFILTRATION Joni Monson MD Work Phone: Start: 07-31-2024 Antibody screen REYNALDO ROWLAND SIXTO Comment on above: Performed By: #### L [id number] ####Typesetter Apprentice: MARY SOTELO ([phone])[facility] ([address] Start: 07-31-2024 ABO and Rh group [...] Start: 07-30-2024 End: 07-30-2024 Renal function panel Joycelyntawana Diane Hasmukh O Work Phone: Start: 07-30-2024 Radiologic exam ches t single view Joycelyn Guerra Diane DO Work Phone: Start: 07-30-2024 Blood gases any comb ination ph pco2 po2 co2 hco3 Wei Fowler DO Start: 07-30-2024 Renal function panel Layton Diane DO Work Phone: Start: 07-29-2024 End: 07-29-2024 Glucose quantitative blood xcpt reagent strip Kena Kumar DO Work Phone: Start: 07-29-2024 POCT GLUCOSE METER UNSOLICITED RESULTS Kena Heath DO Work Phone: Start: 07-29-2024 POCT GLUCOSE METER UNSOLICITED RESULTS Kena Heath DO Work Phone: Start: 07-29-2024 Renal function panel Traylor susana Diane DO Work Phone: Start: 07-29-2024 IR CVC TUNNELED DIAL YSIS CATHETER PLACEMENT Joycelyntawana Diane DO Work Phone: Start: 07-29-2024 Blood gases any comb ination ph pco2 po2 co2 hco3 Joycelyn Guerra Diane DO Work Phone: Start: 07-29-2024 EEG CONTINUOUS MONITORING Torito Mahajan Work Phone: Start: 07-29-2024 Renal function panel Traylor quinchaya Diane DO Work Phone: Start: 07-29-2024 Blood [...] Glucose quantitative blood xcpt reagent strip Kena Villagranrubia DO Work Phone: Start: 07-28-2024 Assay of phosphorus inorganic Joycelyn Diane DO Work Phone: Start: 07-28-2024 Glucose [...] Glucose quantitative blood xcpt reagent strip Kena Masseyiramrubia DO Work Phone: Start: 07-27-2024 Us retroperitoneal [...] Start: 07-27-2024 End: 07-27-2024 [facility] Work Phone: Start: 07-27-2024 Manual Differential panel - Blood Kena Heath DO Work Phone: Start: 07-27-2024 End: 07-27-2024 Smr prim src gram/giemsa stain bct fungi/cell [facility] Work Phone: Start: 07-27-2024 End: 07-27-2024 [...] comb ination ph pco2 po2 co2 hco3 [facility] Work Phone: Start: 07-26-2024 Assay of osmolality blood [facility] Merrill DO Work Phone: Start: 07-26-2024 Artl cathj/cannulj mntr/transfusion spx prq Calixto Trevino MD Work Phone: Start: 07-26-2024 Creatinine other source Sajennifer-Mario Alberto Momin DO Work Phone: Start: 07-26-2024 Iaadiadoo not otherw ise specified Sajennifer-Mario Alberto Momin DO Work Phone: Start: 07-26-2024 Comprehensive metabo lic panel Kena Shilpabryan DO Work Phone: Start: 07-26-2024 Radiologic exam [...] MD Work Phone: Start: 07-24-2024 Antibody screen Kayleigh Traylorhn Comment on above: Performed By: #### B , BTS, [id number] ####[facility] [id number] [facility] [place], [place], [id number] Start: 02-02-2024 CT of chest without contrast Dr. Sin Lujan Work Phone: Start: 10-29-2023 Investigation of transfusion reaction Dr. Sin Lujan Work Phone: Start: 10-29-2023 Respiratory microbia l culture Dr. Sin Lujan Work Phone: Start: 10-20-[address] Aashish Lujan Work Phone: Start: 10-13-[address] Suraj Lujan Work Phone: Start: 08-06-2023 CT of chest without contrast BOARDING ROOM FIXERaPddy Davis BOARDING ROOM FIXER Work Phone: Start: 06-02-2023 CT of chest [...] w/ 2 .5 x 28 mm [facility] 01/15/2018; PCI-MIESHA-Mid LCx w/ 3.0 x 16mm [facility] 02/04/2018 Start: 04-02-2012 Colonoscopy [facility] [employer] rdinators Work Phone: Start: 12-26-2009 Lipid 1996 panel - S dottie or Plasma [facility] Work Phone: Appendectomy No PCP None Hysterectomy No PCP None Plan of Treatment Date Care Activity Detail Author Start: 2034 RSV Vaccine (1 - 1-dose 75+ series) RSV Vaccine (1 - 1-dose 75+ series) [facility] Start: 08-12-2029 Cyanocobalamin vitamin b-12 Vitamin B-12 [facility] [employer] Start: 08-12-2029 [facility] Start: 09-04-2027 Diabetes Screening Diabetes Screening [facility] Start: 07-08-2027 DTaP/Tdap/Td Vaccines (3 - Td or Tdap) DTaP/Tdap/Td Vaccines (3 - Td or Tdap) [facility] Start: 07-08-2027 Urine microalbumin profile DTaP,Tdap,Td Vaccine (3 - Td or Tdap) [facility] Start: 07-08-2027 [facility] Start: 01-31-2026 Pneumococcal Vaccine: 50+ Years (3 of 3 - PCV20 or PCV21) Pneumococcal Vaccine: 50+ Years (3 of 3 - PCV20 or PCV21) [facility] Start: 09-20-2025 Pneumococcal Vaccine: Pediatrics (0 to 5 Years) and At-Risk Patients (6 to 64 Years) (3 of 3 - PPSV23 or PCV20) Pneumococcal Vaccine: Pediatrics (0 to 5 Years) and At-Risk Patients (6 to 64 Years) (3 of 3 - PPSV23 or PCV20) [facility] Start: 09-20-2025 [facility] Start: 09-06-2025 Diabetes: Estimated Glomerular Filtration Rate for [facility] Diabetes: Estimated Glomerular Filtration Rate for Kidney Health [facility] Start: 08-30-2025 Diabetes: Estimated Glomerular Filtration Rate for Kidney Health Diabetes: Estimated Glomerular Filtration Rate for Kidney Health [facility] Start: 08-25-2025 Diabetes: Estimated Glomerular Filtration Rate for Kidney Health Diabetes: Estimated Glomerular Filtration Rate for Kidney Health [facility] Start: 08-24-2025 [facility] Start: 08-11-2025 Diabetes: Estimated Glomerular Filtration Rate for Kidney Health Diabetes: Estimated Glomerular Filtration Rate for Kidney Health [facility] Start: 08-10-2025 [facility] Start: 07-26-2025 Hemoglobin A1c measurement [facility] Start: 07-26-2025 Thyroid stimulating hormone measurement [facility] Start: 05-31-2025 [facility] Start: 05-20-2025 [facility] Start: 05-08-2025 [facility] Start: 04-09-2025 [facility] Start: 01-06-2025 Patient discharge [facility] Start: 01-06-2025 Referral to occupational therapist [facility] Start: 01-06-2025 Referral to service [facility] Start: 01-05-2025 [facility] Start: 01-05-2025 Care of hemodialysis equipment [facility] Start: 01-05-2025 Hemodialysis care [facility] Start: 01-05-2025 [facility] Start: 01-05-2025 [facility] Start: 01-04-2025 End: 01-04-2025 [facility] Start: 01-04-2025 Care regimes management [facility] Start: 01-04-2025 Notification of physician [facility] Start: 01-04-2025 Continuous pulse oximetry [facility] Start: 01-04-2025 Care of hemodialysis equipment [facility] Start: 01-04-2025 Hemodialysis care [facility] Start: 01-04-2025 [facility] Start: 01-04-2025 Application of intermittent pneumatic compression device [facility] Start: 01-04-2025 End: 01-04-2025 [facility] Start: 01-04-2025 Notification of physician [facility] Start: 01-04-2025 Consultation for treatment [facility] Start: 01-04-2025 Following clinical pathway protocol [facility] Start: 01-04-2025 Ambulation without limitation [facility] Start: 01-04-2025 Assessment of risk of venous thromboembolism [facility] Start: 01-04-2025 Inhalation therapy procedure [facility] Start: 01-04-2025 Insertion of catheter into peripheral vein [facility] Start: 01-04-2025 Measuring intake and output [facility] Start: 01-04-2025 Oxygen therapy [facility] Start: 01-04-2025 Providing care according to standard [facility] Start: 01-04-2025 Referral to law office manager [facility] Start: 01-04-2025 [facility] Start: 01-04-2025 Care regimes management [facility] Start: 01-04-2025 Dual pressure spontaneous ventilation support [facility] Start: 01-04-2025 Patient referral to dietitian [facility] Start: 01-03-2025 Admission procedure [facility] Start: 12-28-2024 Anesthesia vascular shunt/shunt revision [facility] Start: 12-28-2024 Arteriovenous anastomosis open direct [facility] Start: 12-28-2024 Patient discharge [facility] Start: 2024 Advance Directive Discussion Advance Directive Discussion [facility] Start: 2024 Screening for osteoporosis Bone Density Screening [facility] Start: 11-20-2024 [facility] Start: 11-04-2024 [facility] Start: 08-13-2024 End: 08-13-2024 ambulatory [facility] Start: 08-13-2024 End: 08-13-2024 Patient encounter procedure 08/13/2024 11:15 AM EDT Office Visit [facility] [address] [place] [id number] Romero Wright MD [address], [place] [id number] [facility] Start: 08-10-2024 End: 07-27-2025 CT Head WO [facility] Work Phone: Start: 07-04-2024 Covid-19 Vaccine ( season) Covid-19 Vaccine ( season) [facility] Start: 07-04-2024 COVID-19 Vaccine ( season) COVID-19 Vaccine ( season) [facility] Start: 07-04-2024 COVID-19 Vaccine ( season) COVID-19 Vaccine ( season) [facility] Start: 07-04-2024 Influenza vaccination Influenza Vaccine (#1) [facility] Start: 07-04-2024 [facility] Start: 10-13-2023 [facility] Start: 10-13-2023 Bacteria identified in Urine by Culture [facility] Start: 10-23-2022 Shingrix Vaccine (2 of 2) Shingrix Vaccine (2 of 2) [facility] Start: 10-23-2022 Zoster Vaccines (2 of 2) Zoster Vaccines (2 of 2) [facility] Start: 10-23-2022 [facility] Start: 07-04-2022 Patient referral [facility] Work Phone: Start: 04-02-2022 Screening for malignant neoplasm of colon [facility] Start: 2019 RSV Immunization aged 60 or older (1 - 1-dose 60+ series) RSV Immunization aged 60 or older (1 - 1-dose 60+ series) [facility] Start: 2019 RSV Immunization for Adults (1 - Risk 60-74 years 1-dose series) RSV Immunization for Adults (1 - Risk 60-74 years 1-dose series) [facility] Start: 2019 [facility] Start: 03-05-2017 End: 03-06-2017 *CMP Complete Metabolic Panel *CMP Complete Metabolic Panel [facility] Work Phone: Start: 03-05-2017 End: 03-06-2017 *Microalbumin, Creatine Ratio, rand urine *Microalbumin, Creatine Ratio, rand urine [facility] Work Phone: Start: 03-05-2017 End: 03-06-2017 HbA1c *HgA1C [facility] Work Phone: Start: 03-05-2017 End: 03-06-2017 Lipid panel [AGGREGATE] *Lipid Profile [facility] Work Phone: Start: 02-18-2017 End: 02-23-2017 *CMP Complete Metabolic Panel *CMP Complete Metabolic Panel [facility] Work Phone: Start: 02-18-2017 End: 02-23-2017 *Microalbumin, Creatine Ratio, rand urine *Microalbumin, Creatine Ratio, rand urine [facility] Work Phone: Start: 02-18-2017 End: 02-23-2017 Lipid panel [AGGREGATE] *Lipid Profile [facility] Work Phone: Start: 12-26-2014 Lipid panel Lipid Screening [facility] Start: 01-21-2013 End: 01-21-2013 *BMP *BMP [facility] Work Phone: Start: 01-21-2013 End: 01-21-2013 *CBC with Differential *CBC with Differential [facility] Work Phone: Start: 01-21-2013 End: 01-21-2013 *CDIF - Clostridium Diff. Toxin Stool *CDIF - Clostridium Diff. Toxin Stool [facility] Work Phone: Start: 01-21-2013 End: 01-21-2013 Erythrocyte sedimentation rate *Sedimentation Rate (ESR) [facility] Work Phone: Start: 01-21-2013 End: 01-21-2013 Helicobacter pylori IgG Ab [Units/volume] in Serum *Helicobacter pylori [facility] Work Phone: Start: 01-21-2013 End: 01-21-2013 PT-TMJ PT-TMJ Physical Therapy [facility], [address] [place] [address], [id number] [facility] Work Phone: Start: 12-27-2012 Diabetes Screening Diabetes Screening [facility] Start: 12-04-2012 Screening for malignant neoplasm of breast Mammogram Screening [facility] Start: 2009 Pneumococcal Vaccine: 50+ (1 of 1 - PCV) Pneumococcal Vaccine: 50+ (1 of 1 - PCV) [facility] Start: 2009 Shingrix Vaccine (1 of 2) Shingrix Vaccine (1 of 2) [facility] Start: 04-30-2005 Urine microalbumin profile DTaP,Tdap,Td Vaccine (2 - Tdap) [facility] Start: 2004 Screening for malignant neoplasm of colon [facility] Start: 1999 Screening for malignant neoplasm of breast [facility] Start: 1989 Screening for malignant neoplasm of cervix [facility] Start: 1980 Screening for malignant neoplasm of cervix [facility] Start: 1978 Hepatitis A Vaccines (1 of 2 - Risk 2-dose series) Hepatitis A Vaccines (1 of 2 - Risk 2-dose series) [facility] Start: 1977 Anxiety Screening Anxiety Screening [facility] Start: 1977 Depression Screening Depression Screening [facility] Start: 1977 Diabetes: Urine Albumin-Creatinine Ratio for Kidney Health Diabetes: Urine Albumin-Creatinine Ratio for Kidney Health [facility] Start: 1977 Hepatitis C screening Hepatitis C Screening [facility] Start: 1977 HIV screening HIV Screening [facility] Start: 1977 [facility] Start: 1971 Depression Monitoring Depression Monitoring [facility] Start: 1971 [facility] Start: 1969 Diabetic foot examination [facility] Start: 1969 Glaucoma screening [facility] Start: 1969 Preventive dental service [facility] Start: 1960 MMR Vaccines (1 of 1 - Standard series) MMR Vaccines (1 of 1 - Standard series) [facility] Start: 1960 [facility] Start: 1959 Annual wellness visit [facility] Start: 1959 Cyanocobalamin vitamin b-12 Vitamin B-12 [facility] Start: 1959 Diabetes: Celiac Disease Screening Diabetes: Celiac Disease Screening [facility] Start: 1959 Lipid panel [facility] Start: 1959 Screening for malignant neoplasm of colon [facility] Start: 1959 [facility] [employer] End: 08-09-2024 Bacteria identified in Urine by Culture [facility] [employer] Work Phone: End: 08-20-2024 Blood gases, arterial measurement [facility] [employer] End: 08-20-2024 Blood gases, venous measurement [facility] [employer] Work Phone: CT Chest [facility] CT Chest W contrast IV [facility] CT Chest WO contrast [facility] End: 08-05-2024 ECG 12 lead [facility] [employer] Work Phone: Exercise tolerance test [facility] Lipid 1995 panel - S dottie or Plasma [facility] Lipid 1995 panel - S dottie or Plasma [facility] Measurement of respiratory function [facility] Patient Education [facility] Work Phone: Patient referral [facility] Work Phone: Positron emission tomography with computed tomography [facility] Vitamin D, 25-hydrox y measurement [facility] Immunizations Immunization Date Immunization Notes Care Provider [facility] 10-28-2024 Pneumococcal Vaccine PCV20 (Prevnar 20) Dr. Bird Lujan MD Work Phone: [facility] 10-28-[address] Bird Lujan MD Work Phone: [facility] 09-27-2024 Pfizer Covid-19 (Comirnaty) Dr. Bird Lujan MD Work Phone: [facility] 07-24-2024 Influenza, seasonal, injectable, preservative free; Translations: [Influenza, Split Virus, Trivalent, PF] Tami Alfredo CONTRACTING ANALYST - COUNCILPERSON Work Phone: [facility] 07-24-2024 [facility] DO Work Phone: [facility] 08-28-2022 influenza, injectabl e, quadrivalent, contains preservative [facility] DO Work Phone: [facility] 08-28-2022 influenza, injectabl e, quadrivalent, preservative free Dr. Bird Lujan MD Work Phone: [facility] 08-28-[address] [facility] DO Work Phone: [facility] 08-28-2022 influenza virus vaccine, unspecified formulation [facility] Work Phone: [facility] 03-22-2021 Moderna COVID-19 Vaccine 100 MCG/0.5ML Intramuscular Suspension No PCP None [facility] 02-22-2021 Moderna COVID-19 Vaccine 100 MCG/0.5ML Intramuscular Suspension No PCP None [facility] 01-31-2021 pneumococcal conjuga te vaccine, 13 valent No PCP None [facility] Work Phone: 09-20-2020 pneumococcal polysaccharide vaccine, [address] Sin Lujan Work Phone: [facility] 09-20-2020 pneumococcal vaccine , unspecified formulation Dr. Sin Lujan Work Phone: [facility] Work Phone: 08-28-2020 influenza, injectabl e, quadrivalent, preservative free BOARDING ROOM FIXEREliaC Jeanna Davis NP Work Phone: [facility] 08-28-2020 influenza, seasonal, injectable Dr. Sin Lujan Work Phone: [facility] 08-28-2020 [facility] DO Work Phone: [facility] 08-12-2018 influenza, injectabl e, quadrivalent, preservative free Dr. Bird Lujan MD Work Phone: [facility] 08-12-2018 influenza, seasonal, injectable No PCP None [facility] [address] Work Phone: 08-11-[address] Sin Ljuan Work Phone: [facility] 08-11-2017 Influenza, seasonal, injectable, preservative free Tami Alfredo CONTRACTING ANALYST - COUNCILPERSON Work Phone: [facility] 08-11-2017 [facility] DO Work Phone: [facility] 07-08-2017 influenza, injectabl e, quadrivalent, contains preservative No PCP None [facility] [address] Work Phone: 07-08-2017 influenza, injectabl e, quadrivalent, preservative free Dr. Bird Lujan MD Work Phone: [facility] 07-08-2017 tetanus toxoid, redu juliette diphtheria toxoid, and acellular pertussis vaccine, adsorbed No PCP None [facility] [employer] [address] Work Phone: 08-12-2016 pneumococcal polysaccharide vaccine, 23 valent No PCP None [facility] [facility] [place] [address] Work Phone: 07-15-2016 influenza, injectabl e, quadrivalent, preservative free BOARDING ROOM FIXEREliaC Jeanna Davis NP Work Phone: [facility] 07-15-2016 influenza, seasonal, injectable Dr. Sin Lujan Work Phone: [facility] 08-07-2015 influenza, injectabl e, quadrivalent, preservative free Dr. Bird Lujan MD Work Phone: [facility] 08-07-2015 influenza, seasonal, injectable No PCP None [facility] 1800 Work Phone: 08-03-[address] Sin Lujan Work Phone: [facility] 08-03-2014 Influenza, seasonal, injectable, preservative free Tami Alfredo CONTRACTING ANALYST - COUNCILPERSON Work Phone: [facility] 08-03-2014 [facility] DO Work Phone: [facility] 04-30-1995 diphtheria and tetan us toxoids, adsorbed for pediatric use [facility] DO Work Phone: [facility] Payers Date Payer Category Payer Unknown [id number] 2025 Unknown [id number] 2024 Private Health Insurance [facility] Member Subscriber Plan / Payer (Effective 2024-Present) Name: Sandy Deng Relation to Subscriber: Self Name: Sandy Deng Payer ID: Not on file Type: Indemnity Address: [place] [id number] 2024 Medicare [id number] 2024 Self-pay [id number] 2024 Commercial Managed C are - HMO [id number] 2024 Unknown 2024 Unknown [id number] 2011 Private Health Insurance [id number] Unknown [id number] Unknown [facility] [id number] Unknown [id number] 2.16.840.1.622553.3.579.2. 462 Unknown [id number] 2.16.840.1.986749.3.579.2. 462 Unknown [id number] 2.16.840.1.075484.3.579.2. 462 Unknown [id number] 2.16.840.1.982519.3.579.2. 462 Unknown [id number] 2.16.840.1.128491.3.579.2. 462 Unknown [id number] 2.16.840.1.998387.3.579.2. 462 Unknown [id number] 2.16.840.1.494984.3.579.2. 462 Unknown [id number] 2.16.840.1.935019.3.579.2. 462 Unknown [id number] 2.16.840.1.507813.3.579.2. 462 Unknown [id number] 2.16.840.1.463523.3.579.2. 462 Unknown [id number] 2.16.840.1.166561.3.579.2. 462 Unknown [id number] 2.16.840.1.071652.3.579.2. 462 Unknown [id number] 2.16.840.1.159205.3.579.2. 462 Unknown [id number] 2.16.840.1.461763.3.579.2. 462 Unknown [id number] 2.16.840.1.600979.3.579.2. 462 Unknown [id number] 2.16.840.1.709353.3.579.2. 462 Unknown [id number] 2.16.840.1.052655.3.579.2. 462 Unknown [id number] 2.16.840.1.941389.3.579.2. 462 Unknown [id number] 2.16.840.1.325685.3.579.2. 462 Unknown [id number] 2.16.840.1.179980.3.579.2. 462 Unknown [id number] 2.16.840.1.426969.3.579.2. 462 Unknown [id number] 2.16.840.1.416383.3.579.2. 462 Unknown [id number] 2.16.840.1.536108.3.579.2. 462 Unknown [id number] 2.16.840.1.403146.3.579.2. 462 Unknown [id number] 2.16.840.1.875075.3.579.2. 462 Unknown [id number] 2.16.840.1.966360.3.579.2. 462 Unknown [id number] 2.16.840.1.617826.3.579.2. 462 Unknown [id number] 2.16.840.1.493616.3.579.2. 462 Unknown [id number] 2.16.840.1.016774.3.579.2. 462 Unknown [id number] 2.16.840.1.621038.3.579.2. 462 Unknown [id number] 2.16.840.1.237196.3.579.2. 462 Unknown [id number] 2.16.840.1.077010.3.579.2. 462 Unknown [id number] 2.16.840.1.071672.3.579.2. 462 Unknown [id number] 2.16.840.1.687166.3.579.2. 462 Unknown [id number] 2.16840.1.666433.3.579.2. 462 Unknown [id number] 2.16840.1.882628.3.579.2. 462 Unknown [id number] 2.16.840.1.359299.3.579.2. 462 Unknown [id number] 2.16840.1.270001.3.579.2. 462 Unknown [id number] 2.16840.1.127245.3.579.2. 462 Unknown [id number] 2.16840.1.854051.3.579.2. 462 Unknown [id number] 2.840.1.974597.3.579.2. 462 Unknown [id number] 2.840.1.087121.3.579.2. 462 Social History Date Type Detail Facility Start: 01-10-2022 End: 07-14-2023 Tobacco smoking status NHIS Unknown if ever smoked [facility] Start: 08-26-2020 None [facility] Start: 08-26-2020 Spouse/ Signif icant Other [facility] Start: 08-29-2020 Cigarettes [facility] Start: 1960 Sex Assigned At Female W [facility] Start: 08-12-2024 End: 08-24-2024 Current smoker Current smoker [facility] Start: 1960 Sex assigned at [facility] Start: 08-12-2024 End: 08-24-2024 Gender identity Not on file [facility] Start: 08-12-2024 Tobacco smoking stat us FLIS Never smoked tobacco [facility] Start: 08-12-2024 Tobacco use and exposure Smokeless tobacco non-user [facility] Has the [employer], or [employer] threatened to shut off services in your home in past 12Mo No [facility] How often to you hav e a drink containing alcohol? Never [facility] How many standard drinks containing alcohol do you have on a typical day? [facility] (I/We) worried whetorey er (my/our) food would run out before (I/we) got money to buy more. Never true [facility] Start: 07-26-2024 End: 01-20-2025 Sex Female (finding) [facility] Start: 03-23-2009 End: 05-20-2025 Tobacco smoking status NHIS Ex-smoker [facility] End: 12-18-2009 History of tobacco use Current smoker [facility] End: 12-18-2009 History of tobacco use Cigarette Smoker [facility] Start: 04-02-2012 Alcoholic beverage intake Current non-drinker of alcohol (finding) [facility] Medical Equipment Procedure Code Equipment Code Equipment Origin al Text Equipment Identifier Dates Creation, AV fistula [id number] FDA Start: 12-28-2024 Creation, AV fistula [id number] FDA Start: 12-28-2024 Creation, AV fistula [id number] FDA Start: 12-28-2024 Blood Sugar Diagnostic (Freestyle [...] test blood sugar s 6-8 times daily [id number] Start: 03-23-2009 Blood Sugar Diagnostic (Freestyle Precision Jeff Strips) strip Start: 08-26-2023 End: 01-27-2025 Blood Sugar Diagnostic (Freestyle Precision Jeff Strips) strip Start: 08-26-2023 End: 01-27-2025 Blood Sugar Diagnostic (Freestyle Precision Jeff Strips) strip Start: 08-26-2023 End: 01-27-2025 Goals Date Patient Goal Desired Activity /State Functional Status Date Assessment Result Facility 01-06-2025 Functional status Ambulates;Bathroom Priv ilege [facility] Work Phone: Mental Status Date Assessment Result Facility 05-20-2025 Cognitive function Level Of Cons ciousness Awake;Alert;Appropriate;Follow s Commands [facility] Work Phone: 05-08-2025 Cognitive function Level Of Cons ciousness Awake;Alert;Appropriate;Follow s Commands [facility] Work Phone: 04-09-2025 Cognitive function Awake;Alert;A ppropriate;Follow s Commands [facility] Work Phone: 01-06-2025 Cognitive function Voice/Name [facility] Work Phone: 12-28-2024 Cognitive function Sedated [facility] Work Phone: 12-28-2024 Cognitive function Voice/Name [facility] Work Phone: 11-20-2024 Cognitive function Awake;Alert;A ppropriate;Follow s Commands [facility] Work Phone: Clinical Notes 05-20-2023 to 05-08-2025 Note Date & Type Note Facility 05-08-2025 Radiology Diagnostic study note [facility] Imaging Services [address] [place], [place] [address] Abdomen/Pelvis W IV Cont ONLY MR#: [id number] Acct: [id number] Name: SANDY DENG Rep #: [id number] : 1960 F 64 From: Jose Brown MD PCP: Dr. Bird Lujan MD Status: REG ER Study:Abdomen/Pelvis W IV Cont ONLY Date of E xam: 05/08/25 Exam# [id number] Ordering Dr: Justin Lara DO PROCEDURE: ABDOMEN/PELVIS [...] 3. Other findings as noted. Reading Location: [id number] CC: Dr. Justin Parisi DO; Dr. Bird Lujan MD ~ Hand Mold Maker: Signed [facility] Work Phone: 05-08-2025 Radiology Diagnostic study note [facility] Imaging Services [address] [address] Chest PA and Lateral MR#: [id number] Acct: [id number] Name: SANDY DENG Rep #: [id number] : 1960 F 64 From: Jose Brown MD PCP: Dr. Bird Lujan MD Status: REG ER Study:Chest PA and Lateral Date of Exam: 05/08/25 Exam# [id number] Ordering Dr: Justin Lara DO PROCEDURE: CHEST [...] catheter. 3. Left pleural effusion. Reading Location: [id number] CC: Dr. Justin Parisi DO; Dr. Bird Lujan MD ~ Hand Mold Maker: Signed [facility] Work Phone: 04-09-2025 Discharge summary Note Date/Time April 09, 2025 1:43pm [facility] Medical Records Department [address] [place] [address] Emergency Department Summary 04/09/25 MR#: [id number] Acct: [id number] Name: SANDY DENG Rep #:[id number] : [...] She is seen by Dr. Huerta the law office manager. She has history of end-stage renal disease [...] nodule, solitary Fissure in skin of foot Adrian's sign present Tobacco abuse CKD (chronic kidney [...] Anxiety Depression Atherosclerosis of coronary artery of [place] heart without angina pectoris NSTEMI (non-ST elevated [...] denosumab 60 mg/mL subcutaneous 60 mg subcut [id number] bone health 06/10/24 07/09/24 Rx syringe (Prolia) [...] follows: Interpretation: Sinus Bradycardia (Rate is 52. [place] to the left. LA interval is 176 ms. QRS duration 104 [...] on hemodialysis, Atherosclerosis of coronary artery of [place] heart without angina pectoris, Chronic obstructive pulmonary [...] Prolia 60 mg/mL syringe 60 mg subcut [id number] Qty: 1 1RF Patient Comments: Next injection [...] Care Provider] - 1 Week Print Language: Chilean Disposition Disposition: Home, Self Care What to do if you have Problems For any increased pain, shortness of breath, bleeding, nausea or vomiting, chestpain, or any unexpected problems, contact your Primary Care Provider. Call [facility] ([phone]) or report to the closest Emergency Room. Call 911 if necessary. 04/09/25 1343 <Electronically signed by Milind Heath MD> Cosigner Signature (if applicable): CC: Dr. Bird Lujan MD ~ Signed [facility] Work Phone: 1(702) 736-472603-27-2025 Evaluation note* Diagnosis Onset Date Resolution Status Admit Date DM type 1 (diabetes mellitus , type 1) chronic January 27, 2025 8:40am High cholesterol chronic January 272024 8:40am Hypertension chronic January 27, 2025 8:40am Insulin pump titration chronic [facility] 2024 8:40am Osteoporosis chronic January 27, 2025 8:40am Presence of insulin pump chronic January 27, 2025 8:40am Vitamin D deficiency chronic [facility] 2024 8:40am AV fistula acute March 22, 2025 12:59pm Hypercarbia acute May 18 8:42am Lung nodule, multiple acute May 8:42am Chronic hypoxic respiratory failure chronic May 18, 2025 8:42am Chronic obstructive pulmonar y disease chronic May 18, 2025 8:42am ESRD on hemodialysis chronic May 18, 2025 8:42am Hypertension chronic May 18, 8:42am [facility] Work Phone: 1(579) 246-341103-27-2025 Evaluation note* Diagnosis Onset Date Resolution Status Admit Date DM type 1 (diabetes mellitus , type 1) chronic January 27, 2025 8:40am High cholesterol chronic January 272024 8:40am Hypertension chronic January 27, 2025 8:40am Insulin pump titration chronic [facility] 2024 8:40am Osteoporosis chronic January 27, 2025 8:40am Presence of insulin pump chronic January 27, 2025 8:40am Vitamin D deficiency [facility] 2024 8:40am AV fistula acute March 22, 2025 12:59pm Hypercarbia acute May 18 8:42am Lung nodule, multiple acute May 8:42am Chronic hypoxic respiratory failure chronic May 18, 2025 8:42am Chronic obstructive pulmonar y disease chronic May 18, 2025 8:42am ESRD on hemodialysis chronic May 18, 2025 8:42am [facility] Work Phone: 1(133) 127-584603-11-2025 Evaluation note* Diagnosis Onset Date Resolution Status Admit Date AV fistula acute January 11 2:55pm DM type 1 (diabetes mellitus , type 1) chronic March 27th, 2025 8:40am High cholesterol chronic January 272024 8:40am Hypertension chronic January 27, 2025 8:40am Insulin pump titration chronic [facility] 2024 8:40am Osteoporosis chronic January 27, 2025 8:40am Presence of insulin pump chronic January 27, 2025 8:40am Vitamin D deficiency chronic [facility] 2024 8:40am AV fistula acute March 22, 2025 12:59pm [facility] Work Phone: 1(901) 544-552003-11-2025 Radiology Diagnostic study [facility]03-06-2025 [facility]03-03-2025 Note [facility]02-27-2025 Telephone encounter Note* Telephone Encounter - Montana James - 12/30/2024 11:00 AM EST Called and spoke with the patient in regards to kidney transplant referral, she states she started the process with [facility], and would like to go through the process at that center, as one center is enough to go through testings, and appointments. Advised the patient if she changes her mind, provided her with our office phone number, referral ended, and she verbalized understanding. Montana James [facility]02-27-2025 Miscellaneous Notes* Telephone Encounter - Montana James - 12/30/2024 11:00 AM EST Called and spoke with the patient in regards to kidney transplant referral, she states she started the process with [facility], and would like to go through the process at that center, as one center is enough to go through testings, and appointments. Advised the patient if she changes her mind, provided her with our office phone number, referral ended, and she verbalized understanding. Montana James [facility] Telephone encounter Note * Telephone Encounter - Otilia Portillo Tech - 12/29/2024 10:50 AM EST I spoke with Lita at [facility] who confirmed the patients demographic information and confirmed that the phone number that we have on file for the patient is incorrect. The correct phone number is [phone]. [facility]02-26-2025 Miscellaneous Notes* Telephone Encounter - Otilia Portillo Tech - 12/29/2024 10:50 AM EST I spoke with Lita at [facility] who confirmed the patients demographic information and confirmed that the phone number that we have on file for the patient is incorrect. The correct phone number is [phone]. [facility]2025 [facility]02-21-2025 Telephone encounter Note* Telephone Encounter - Montana James - 12/24/2024 1:28 PM EST Called Sandy Deng without success regarding referral. Voicemail message was left for patient to call our office. Montana James [facility]02-21-2025 Miscellaneous Notes* Telephone Encounter - Montana James - 12/24/2024 1:28 PM EST Called Sandy Deng without success regarding referral. Voicemail message was left for patient to call our office. Montana James [facility] Evaluation note* Diagnosis Onset Date Resolution Status Admit Date Atherosclerosis of coronary artery of [place] heart without angina pectoris chronic December 16 1:50pm ESRD (end stage renal diseas e) on dialysis chronic December 16 1:50pm Essential (primary) hypertension chronic December 16 1:50pm Hyperlipidemia chronic December 042024 1:50pm Acute respiratory failure wi th hypoxia and hypercarbia acute January 11:39pm Anemia acute January 03 11:39pm End-stage renal disease on hemodialysis acute January 03, 2025 11:39pm Left lower lobe pneumonia acute January 03, 2025 11:39pm Parapneumonic effusion acute [facility] 2024 11:39pm Pleural effusion on left [...] 27, 2025 8:40am Insulin pump titration chronic [facility] 2024 8:40am Osteoporosis chronic January 27, 2025 8:40am Presence of insulin pump chronic January 27, 2025 8:40am Vitamin D deficiency chronic [facility] 2024 8:40am AV fistula acute March 22, 2025 12:59pm [facility] Work Phone: 1(843) 414-204901-30-2025 Evaluation note* Diagnosis Onset Date Resolution Status Admit Date ESRD (end stage renal diseas e) on dialysis chronic December 02 2:26pm Atherosclerosis of coronary artery of [place] heart without angina pectoris chronic December 16 025 1:50pm ESRD (end stage renal diseas e) on dialysis chronic December 16 025 1:50pm Essential (primary) hypertension chronic December 16 025 1:50pm Hyperlipidemia chronic December 042024 1:50pm Acute respiratory failure wi th hypoxia and hypercarbia acute January 11:39pm Anemia acute January 03 11:39pm End-stage renal disease on hemodialysis acute January 03, 2025 11:39pm Left lower lobe pneumonia acute January 03, 2025 11:39pm Parapneumonic effusion acute [facility] 2024 11:39pm Pleural effusion on left [...] 27, 2025 8:40am Insulin pump titration chronic [facility] 2024 8:40am Osteoporosis chronic January 27, 2025 8:40am Presence of insulin pump chronic January 27, 2025 8:40am Vitamin D deficiency chronic [facility] 2024 8:40am [employer] Work Phone: 1(797) 220-532212-05-2024 Evaluation note* Diagnosis Onset Date Resolution Status [...] 04 3:09pm ESRD on hemodialysis chronic Carlos Albetro chelsea2024 3:09pm Hypertension chronic November 04, 2024 3:09pm ESRD (end stage renal diseas e) on dialysis chronic December 02 2:26pm Atherosclerosis of coronary artery of [place] heart without angina pectoris chronic December 16, 2 025 1:50pm ESRD (end stage renal diseas e) on dialysis chronic December 16, 2 025 1:50pm Essential (primary) hypertension December 16, 2 025 1:50pm Hyperlipidemia chronic December 042024 1:50pm Acute respiratory failure wi th hypoxia and hypercarbia acute January 11:39pm Anemia acute January 03 11:39pm End-stage renal disease on hemodialysis acute January 03, 2025 11:39pm Left lower lobe pneumonia acute January 03, 2025 11:39pm Parapneumonic effusion acute [facility] 2024 11:39pm Pleural effusion on left acute January 03, 2025 11:39pm COPD exacerbation chronic January 032024 11:39pm DM type 1 (diabetes mellitus , type 1) chronic January 03, 2025 11:39pm Hypertension chronic January 03, 025 11:39pm Acute hyperkalemia resolved January 03, 2025 11:39pm Chronic hypoxemic respirator y failure resolved January 03, 2025 11:39pm AV fistula acute January 11 2:55pm [facility] Work Phone: 1(471) 431-632510-29-2024 History of Present illness Narrative* SYED Buck CNP - 08/31/2024 1:43 PM EDT Patient seen by me at [facility]. Complete documentation including history with assessment and plan were documented in [facility] EMR. This encounter is for billing only. documented in this [facility]10-25-2024 History of Present illness Narrative* SYED Buck CNP - 08/27/2024 1:11 PM EDT Patient seen by me at [facility]. Complete documentation including history with assessment and plan were documented in [facility] EMR. This encounter is for billing only. documented in this [facility]10-23-2024 History of Present illness Narrative* SYED Buck CNP - 08/25/2024 4:04 PM EDT Patient seen by me at [facility]. Complete documentation including history with assessment and plan were documented in [facility] EMR. This encounter is for billing only. documented in this [facility]10-22-2024 Miscellaneous Notes* Care Coordination - SAPNA Ibarra - 08/24/2024 2:22 PM EDT Requested to [facility] Met with patient and spouse- patient ok with ambulette. Set up for 3:30 with roundtrip, [facility]vern card accepted the trip. Cost provided to patient 51.80-59.80. Updated patient ,spouse-BO Garcia. Stud Dairy Cattle Farmer, [facility] * Care Coordination - Kimberlee Valdovinos - 08/24/2024 12:45 PM EDT Discharge med list transmitted to [facility] for return via [facility] per TCC request. * Care Coordination - Jesi Bach RN - 08/24/2024 12:38 PM EDT Auth obtained for [facility]. SW messaged to set up transport, HANDSTITCHING MACHINE ARMHOLE FELLER messaged to send orders and MAR. * [...] Outcome: Progressing Goal: Nutritional status is improving 08/24/2024644 by Juanis Rojas RN Outcome: Progressing 08/23/20241918 by Juanis Rojas RN Outcome: Progressing Problem: Urinary Incontinence Goal: Perineal skin integrity is maintained or improved 08/24/2024644 by Juanis Rojas RN Outcome: Progressing 08/23/20241918 by Juanis Rojas RN Outcome: Progressing Problem: Problem Interventions Goal: Assess Nutritional Intake 08/24/2024644 by Juanis Rojas RN Outcome: Progressing 08/23/20241918 by Juanis Rojas RN Outcome: Progressing * Care Coordination - Jesi Bach RN - 08/23/2024 1:19 PM EDT Per [facility] liaison Carmelina, will re-submit for MMO [...] EDT Care Management Progress Note Discharge Plan: [facility] This nurse practitioner adult was tasked to follow this patient through the weekend assisting with dischargeplanning. Chart was reviewed. Messaged [facility] Liaison through secure chat to clarify auth status. [...] at baseline and stable to transfer to [facility]. PT/OT recommending IPR. Confirmed with Elevator Starter Carmelina that Insurance Authorization started for [facility] this am. Will await authorization . [...] at baseline and stable for transfer to [facility]. Discharge plan [facility]. Requested PT/OT evaluation today if possible to start insurance auth for return. Length of Stay (Days): 5 GMLOS: No GMLOS Documented * Care Coordination - Alanna Silva RN - 08/16/2024 12:33 PM EDT Care Management Progress Note Patient remains on T3 ICU, pending [facility] transfer - medically stable for F. PT/OT evals pending. Patient is from [facility]. DCP- return vs SNF vs home with c, dc planning on going. CM to follow. [...] WILMER Carroll - 08/13/2024 3:34 PM EDT KRUNAL coverage for today. [facility] SW received SDOH consult due to pt being unable to answer any questions upon admission due to altered mental status. SW following along with TCC. * Care Coordination - Amira Stark - 08/13/2024 10:20 AM EDT Return referral placed to [facility] via [facility] per TCC request. Await review and response regarding ability to accept. TCC notified. * Care Coordination - An Werner RN - 08/13/2024 9:56 AM EDT Care Managment Initial Assessment Date: 08/13/2024 Patient Name: Sandy Deng : 1960 Patient Information Source of Information: Patient Meter And Regulator Shop Supervisor Name/Contact Information: Jose at the bedside. Cognition/Language: Impaired Permission given to speak with patient teleservices representative/caregiver as indicated: Yes Confirmation of Payer with patient/family: Yes Payer Name: [employer] [place]: No Confirmation of Primary Care Physician: Confirmed [...] Levels: Facility: Inpatient Rehab Facility Facility Name: [facility] Plan to Return: Yes Lives [...] expects to be discharged to: Return to [facility] to complete rehab. Discharge Planning Actions: Continue to follow Patient's Choice Rights and [employer] and Collaborative Relationships Disclosed as Indicated for Post-Acute Care: Interdisciplinary Team Engagement: Acute Rehab Social Work Referral for: Additional Information: Patient admitted to T3 from [facility] for Altered Mental Status. Confirmed at the bedside with Jose Deng that patient is from [facility] and that the discharge plan if for her to return. Referral placed in [facility]. Patient is currently on continuous EEG [...] improving Outcome: Not Progressing documented in this [facility]10-22-2024 [facility] 08-24-2024 Hospital course Narrative* William Jarrett [...] , and T1DM who was managed at [facility] from 08/12/24-08/24/24 for acute on chronic hypoxic and hypercapnic respiratory failure. Of note, patient was admitted from [facility] recent hospital admission from 07/26/24-08/10/24 when she was managed in the ICU for septic shock/subdural hematoma. While at [facility], patient experienced altered mental status and was found hypoxic in the 80's. She was managed in the ICU with NIV and brought to the general medical floor. While on the [facility], patient experienced AMS likely due to CO2 narcosis and was brought back to the ICU on NIV. She was stabilzed with improved mentation and ultimately was transferred back to the [facility] and strongly urged to use BiPap at night. She is currently AAOx3 after wearing the Bipap overnight, and is on 4 L of oxygen at 100%. She was ultimately stable upon discharge to [facility]. Disposition: Acute Rehab Activity: up with [...] Breztri Aerosphere 160-9-4.8 MCG/ACT aerosol Generic drug: Oqdgmwt-Emibpfazvck-Smpolbixao busPIRone 7.5 MG tablet Commonly known as: [...] Commonly known as: Nitrostat * Omnipod 5 OitS1D3 Intro Gen 5 kit * Omnipod 5 DfaC4P1 Pods Gen 5 misc Prolia 60 MG/ML solution prefilled syringe Generic drug: denosumab simvastatin 40 MG tablet Commonly known as: Zocor SPS 15 GM/60ML suspension Generic drug: sodium polystyrene Trelegy Ellipta 200-62.5-25 MCG/ACT aerosol powder Generic drug: Awvytghqrav-Sjvvnsjyf-Wyszzl * This list has 2 medication(s) that [...] 08/24/2024 1:33 PM EDT documented in this [facility]10-22-2024 History of Present illness Narrative* William Jarrett DO - 08/24/2024 11:13 AM EDT Med Team Progress Note Sandy Marie Ish : 1960(63 y.o.) Date: August 24, 2024 [...] so no tx. Plan transfer back to [facility] when arrangements in place. 31 (Discharge 54636) minutes spent zwbu-ub-vzyk/floor time coordinating care and/or counseling patient. Savita Denise MD * Joni Monson MD - 08/23/2024 11:24 AM EDT Images from the original note were not included. Nephrology Progress Note Patient: Sandy Deng Room number: [id number] Date of Admit: 08/12/2024 LOS: 11 days Referring physician: Kemar Adames DO Outpatient Deputy Head: Christy Huerta Assessment/Plan: Mrs. Sandy Deng is a 63 year old female with PMH of CKD 4, DM type 1, HTN, CAD, COPD (3L O1hfjvipau), initially presenting with resp distress and delirium, Covid positive. Also found to havepseudomonas and staph aures PNA. She was intubated, now extubated. CT head showed a small right SDH. Consulted for UMA on CKD 4 - follows with Dr Christy Huerta ([place]). On review of available labs,Cr has been 2.4-2.8, last (04/26) Cr 2.4 eGFR 20, 24 hr pjqjmzi=0907 mg. On admit, (07/26) Cr 4.56, CRRT [...] care of this patient. Joni Monson MD [facility] ([facility]) Office phone: [phone] Office fax: [phone] 08/23/2024 Subjective Patient seen this am, spouse [...] and dry, no rash LABS: Recent Labs 08/21/24 0314 08/21/24 0825 08/21/24 1432 08/22/24 0643 08/23/24313 WBC 6.2 -- -- 4.8 4.4 HGB 9.9* < > 10.2 8.6* 8.2* HCT 30.6* -- -- 26.6* 25.5* MCV 91.3 -- -- 92.0 89.8 PLT 157 -- -- 161 167 < > = values in this interval not displayed. Recent Labs 08/21/24 0314 08/21/24 0946 08/22/24 0643 08/23/24313 NA 133* -- [...] PO (chewing/swallowing) however monitor acute need for COIN MACHINE ASSEMBLER eval. Per MNT protocol will add [...] ? loss at baseline such as in worship, clavicle, etc (muscle)) Fluid Accumulation: No significant fluid accumulation (per chart) (BUE pitting, BLE non-pitting perflowsheets) Wall Cleaner Strength: Not Performed Nutrition Assessment: Pt with [...] removed 2.3L; pt stable for transfer to [facility] after being treated for septic shcok [...] admit --> 07/28/24: 134# bedscale, 08/07/24:126# bedscale) [place] Body Weight (lbs) (Calculated): 130 lbs [place] Body Weight (Kg) (Calculated): 59 kg % [place] Body Weight (Calculated): 83.1 % BMI (kg/m2) [...] Renae Squires RD Contact: Secure chat or *[phone] * Shanti Bianchi NP - 08/23/2024 9:26 AM EDT Images from the original note were not included. [facility] Progress Note Sandy Deng [...] not being treated; urology consulted. 35 (Subsequent 26401) minutes spent scmw-pr-pxvi/floor time coordinating care and/or counseling patient. Savita [...] (3 days 10mg, 3 days 5mg) Anticipated Tatums Medications (ICU initiated) or Dose Changes and [...] page MICU team for clarifications. * Zofia Guerra Tristan, OT - 08/22/2024 10:57 AM EDT Images from the original note were not included. OCCUPATIONAL THERAPY [facility] Treatment Note Name/MRN: Sandy Deng ([id number]) Date of : 1960 Age: 63 y.o. Room/Bed: T3-304/T3-304 A Discharge Recommendation: IP Rehab Other: Continue to assess pending progress. Prior Level of Function Prior Level of ADL Function: Independent Prior Level of Mobility: Independent; Device: Front wheeled walker Prior Level of Transfers: Independent Pt requires assistance at [facility], information of independent is baseline [...] original note were not included. PHYSICAL THERAPY [facility] Re-Evaluation Name/MRN: Sandy Deng ([id number]) Evaluation Date: 08/22/2024 Date of : 1960 [...] Diagnosis Date COPD (chronic obstructive pulmonary disease) ([facility]) Diabetic neuropathy ([facility]) Hyperlipidemia Myocardial infarct ([facility]) Stage 4 chronic kidney disease ([facility]) Type 1 diabetes ([facility]) Past Surgical History: Past Surgical History: Procedure Laterality Date CORONARY ANGIOPLASTY WITH STENT PLACEMENT CORONARY ANGIOPLASTY WITH STENT PLACEMENT Admission Diagnosis: Patient Active Problem List Diagnosis Date Noted Anxiety disorder due to medical condition 08/12/2024 Atherosclerosis of coronary artery 08/12/2024 Chest pain 08/12/2024 Chronic constipation 08/12/2024 Cigarette smoker 08/12/2024 Adrian's sign present 08/12/2024 Depressive disorder 08/12/2024 Diabetic polyneuropathy (CMS/HCC) ([facility]) 08/12/2024 Dizziness 08/12/2024 Gastroparesis 08/12/2024 Hypoglycemia 08/12/2024 Injury of kidney 08/12/2024 Intermittent palpitations 08/12/2024 Intractable vomiting with nausea 08/12/2024 Respiratory failure with hypoxia ([facility]) 08/12/2024 Skin lesion of foot 08/12/2024 Hypercapnic respiratory failure ([facility]) 08/12/2024 SDH (subdural hematoma) ([facility]) 07/26/2024 COPD (chronic obstructive pulmonary disease) ([facility]) 07/26/2024 Type 1 diabetes mellitus with kidney complication ([facility]) 07/26/2024 Myocardial infarction ([facility]) 07/26/2024 Hyperlipidemia 07/26/2024 Diabetic neuropathy associated with type 1 diabetes mellitus ([facility]) 07/26/2024 Stage 4 chronic kidney disease ([facility]) 07/26/2024 Acute renal failure ([facility]) 07/26/2024 Anemia 07/26/2024 Hypocalcemia 07/26/2024 Multiple pulmonary nodules 05/17/2024 Underweight 04/14/2024 Solitary pulmonary nodule 02/06/2024 Wheezing 10/29/2023 History of coronary artery stent placement 02/04/2018 Nicotine dependence 01/08/2017 Hypertension 01/08/2017 Diabetic ketoacidosis ([facility]/HCC) ([facility]) 12/30/2012 Medical Precautions: No active isolations [...] Responsibilities: Independent Receives Help From: Spouse Active Early Morning Babysitter: N/A Prior Level of Function Prior Level [...] 09/19/24 Therapy Time Individual Co-treatment Time In 09 Time Out 0948 Minutes 23 Timed Code Treatment Minutes: 23 Minutes (FA, Re-Eval) Maranda Greer PT Patient's Physical Therapy Plan of Care supervision is transferred to a [facility] Physical Therapist. Goals and/or [...] none Objective: Last Vitals: BP MAP 126/53 (08/22/248) 73 (08/22/24407) Arterial BP MAP (na) (08/13/24 0632) Temp 37 C (98.6 F) (08/22/24407) Pulse 77 (08/22/24407) Resp 16 (08/22/24407) SpO2 100 % (08/22/24407) Weight 55.2 kg (121 lb 11.1 oz) (08/21/24399) BMI Body mass index is 19.64 kg/m . I/O: 08/21 0700 - 08/22 659 In: 1100 [P.O.:400; I.V.:200] Out: 1040 [Urine:1040] [...] Normal [] Scar/Lesion/Mass Inspection of teeth/lips/gums Dentition: [][place] Teeth []Dentures Lips/Gums: [x]Intact []Lesion Present Mucosa: [x][place] []Moist []Dry Neck: External Appearance Overall Appearance: [...] 0825 08/21/24 1432 PHART 7.274* 7.286* 7.373 ETU7RHP 59.2* 59.5* 51.3* PO2ART 113.3* 88.7 85.9 QXO8NTX 26.8* 27.7* 29.2* G3ZRLLGL 40% Oxygen CPAP CPAP Lactic Acid: No [...] Respiratory acidosis T1DM ESRD on HD (MWF) Candiduria Hx CAD, stent placed 7 years [...] DVT Prophylaxis: Heparin subcutaneous Disposition: Transfer to [facility] Cosigned by Kemar Adames DO at 08/22/2024 3:38 PM EDT Associated attestation - Kemar Adames DO - 08/22/2024 3:38 PM EDT I have personally performed a ozfa-ns-wdrm diagnostic evaluation on this patient on date of smvlmah92/20/24. History, labs, imaging studies, and electronic medical record have been reviewed by me. This note documented by the []Critical Care Fellow [x]charhouse worker []TONJA reflects my history, exam, and medical [...] days Referring physician: Savita Denise MD Outpatient Deputy Head: Christy Huerta Assessment/Plan: Mrs. Sandy Deng is a 63 year old female with PMH of CKD 4, DM type 1, HTN, CAD, COPD (3L O2ahxzsnpe), initially presenting with resp distress and delirium, Covid positive. Also found to havepseudomonas and staph aures PNA. She was intubated, now extubated. CT head showed a small right SDH. Consulted for UMA on CKD 4 - follows with Dr Christy Huerta ([place]). On review of available labs,Cr has been 2.4-2.8, last (04/26) Cr 2.4 eGFR 20, 24 hr wxeltjy=1026 mg. On admit, (07/26) Cr 4.56, CRRT [...] care of this patient. Karyn Jones MD [facility] ([facility]) Pager [phone] Office phone: [phone] Office fax: [phone] 08/21/2024 Subjective Patient seen this am. She [...] Vitals: BP MAP 133/54 (08/21/24 0600) 78 (08/21/24599) Arterial BP MAP (na) (08/13/24 0632) Temp 36.3 C (97.3 F) (08/21/24 040) Pulse 58 (08/21/24599) Resp 17 (08/21/24599) SpO2 [...] Inspection of teeth/lips/gums (NIV mask inplace)_ Dentition: [][place] Teeth []Dentures Lips/Gums: []Intact []Lesion Present Mucosa: [][place] []Moist []Dry Neck: External Appearance Overall Appearance: [...] 0550 08/20/24 0522 08/20/24 1024 08/20/24 1558 08/20/241 08/21/24 0314 WBC 4.0 5.8 -- -- [...] 08/20/24 1558 08/20/242120 PHART 7.244* 7.242* 7.274* PMM3CBL 68.4* 67.9* 59.2* PO2ART 36.2* 101.2* 113.3* VRA9FQZ 28.9* 28.6* 26.8* X9YSFEDO Bi-PAP 40% Oxygen 40% Oxygen Lactic Acid: [...] 1:58 PM EDT Associated attestation - Kemar Adamse DO - 08/21/2024 1:58 PM EDT I have personally performed a qoze-ii-utpr diagnostic evaluation on this patient on date of swfxrah84/19/24. History, labs, imaging studies, and electronic medical record have been reviewed by me. This note documented by the []Critical Care Fellow [x]charhouse worker []TONJA reflects my history, exam, and medical [...] Progress Note Patient: Sandy Deng Room number: [id number]/[facility] A Date of Admit: 08/12/2024 LOS: 8 days Referring physician: Savita Denise MD Outpatient Deputy Head: Christy Huerta Assessment/Plan: Mrs. Sandy Deng is a 63 year old female with PMH of CKD 4, DM type 1, HTN, CAD, COPD (3L [id number]), initially presenting with resp distress and delirium, Covid positive. Also found to havepseudomonas and staph aures PNA. She was intubated, now extubated. CT head showed a small right SDH. Consulted for UMA on CKD 4 - follows with Dr Christy Huerta ([place]). On review of available labs,Cr has been 2.4-2.8, last (04/26) Cr 2.4 eGFR 20, 24 hr bbqeund=7235 mg. On admit, (07/26) Cr 4.56, CRRT [...] be covering this weekend. Joni Monson MD [facility] ([facility]) Office phone: [phone] Office fax: [phone] 08/20/2024 Subjective Patient seen this am, spouse [...] Lying Pulse: 70 64 65 Resp: 18 19 18 18 Temp: (!) 35.3 C (95.5 [...] PLT 111* 114* 145 -- Recent Labs 08/18/2441608/19/24 0550 08/19/24 0806 08/20/24 0522 NA 130* [...] with small pleural effusions. * Sherri Domingo, CONTRACTING ANALYST - COUNCILPERSON - 08/20/2024 8:33 AM EDT Images from the original note were not included. [facility] Progress Note Sandy Deng [...] tablet by mouth 2 times daily. Cholecalciferol ([facility] Vitamin D3) 25 MCG (1000 UT) chewable [...] to follow Recommend to follow up at [facility] after hospital [...] 7.5 oz) SpO2 99% BMI 17.51 kg/m Tmax:Temp (24hrs), Av.1 C (96.9 F), Min:35.3 C [...] within last 24 hours- BMP: Recent Labs 08/18/24 0417 08/19/24 0550 08/20/24 0522 NA 130* 126* 129* K 3.8 4.4 4.0 CL 99 95* 97* CO2 27 28 24 BUN 35* 28* 41* CREATININE 3.57* 2.98* 3.58* CALCIUM 7.9* 7.4* 7.8* MG 2.0 2.0 2.0 PHOS 3.4 3.8 4.1 LFTs:No results for input(s): AST, ALT, PROT, ALBUMIN, BILITOT, BILIRUBINU, ALKPHOS, LIPASE in the last 72 hours. Glucose: Recent Labs 08/18/247 08/18/24 0954 08/19/24 0550 08/19/24 0730 08/19/24 [...] the last 72 hours. CBC: Recent Labs 08/18/247 08/19/24 0550 08/20/24 0522 08/20/24 1024 WBC [...] Janell Booker MD, 81 mg at 08/19/24 0921 atorvastatin (Lipitor) tablet 20 mg, 20 mg, [...] Nightly, Janell Booker MD, 25 mg at 08/19/242130 senna-docusate sodium (Senokot-S) 8.6-50 MG tablet 2 tablet, 2 tablet, Oral, Daily PRN, Janell Booker MD sodium chloride (Cyrus) 0.65 % nasal spray 1 spray, 1 [...] would like to meet with SW or case work aide to discuss insurance coverage for dialysis before [...] use BiPAP overnight. Pulmonary following. 35 (Subsequent 00589) minutes spent ewuo-dx-muxz/floor time coordinating care and/or counseling patient. Savita Denise MD * Joni Monson MD - 08/19/2024 3:19 PM EDT Images from the original note were not included. Nephrology Progress Note Patient: Sandy Deng Room number: [id number]/W7-724 A Date of Admit: 08/12/2024 LOS: 7 days Referring physician: Kemar Adames DO Outpatient Deputy Head: Christy Huerta Assessment/Plan: Mrs. Sandy Deng is a 63 year old female with PMH of CKD 4, DM type 1, HTN, CAD, COPD (3L K6ugzsagjx), initially presenting with resp distress and delirium, Covid positive. Also found to havepseudomonas and staph aures PNA. She was intubated, now extubated. CT head showed a small right SDH. Consulted for UMA on CKD 4 - follows with Dr Christy Huerta ([place]). On review of available labs,Cr has been 2.4-2.8, last (04/26) Cr 2.4 eGFR 20, 24 hr unkipeo=2770 mg. On admit, (07/26) Cr 4.56, CRRT [...] care of this patient. Joni Monson MD [facility] ([facility]) Office phone: [phone] Office fax: [phone] 08/19/2024 Subjective Patient seen this am afternoon. [...] hours ending 08/19/24 1519 [REMOVED] Urethral Catheter Byfuvaqr-lyb-Vufnog (mL): 25 mL FIO2 needs: on 4 [...] original note were not included. PHYSICAL THERAPY [facility] Treatment Note Name/MRN: Sandy Deng ([id number]) Date of : 1960 Age: 63 y.o. Room/Bed: W7-724/W7-724 A Discharge Recommendation: IP Rehab Equipment Needed: [...] time needed with all mobility and very [place].Noted wet, non-productive cough and tends to fatigue [...] 72 hours. Glucose: Recent Labs 08/17/2422208/17/24 0833 08/18/24 0417 08/18/24 0954 08/18/24 1322 [...] Narrative [facility] 1960 [id number] Exam Date/Time: 08/12/2024 13:10 Procedure: XR CHEST [...] Nostril, Daily, Janell Booker MD, 2 sprayat 10/17/24 0921 gabapentin (Neurontin) capsule 200 mg, 200 mg, Oral, BID, Janell Booker MD, 200 mg at 08/19/24920 glucagon (human recombinant) injection 1 mg, 1 mg, IntraMUSCular, PRN, Janell Booker MD glucose oral gel 15 g, 15 g, Oral, PRN, Janell Booker MD guaiFENesin (Mucinex) 12 hr tablet 600 mg, 600 mg, Oral, BID, Janell Booker MD, 600 mg at 1 heparin injection 5,000 Units, 5,000 Units, SubCUTAneous, 2 times per day, Janell Booker MD, 5,000Units at 08/19/24919 insulin glargine (Lantus) injection 10 Units, 10 [...] BID, Janell Booker MD, 2 puff at 08/19/24920 ondansetron ODT (Zofran-ODT) disintegrating tablet 4 mg, [...] Daily PRN, Janell Booker MD sodium chloride (Cyrus) 0.65 % nasal spray 1 spray, 1 [...] y.o.) Date: August 19, 2024 Med Team: A Attending: Dr. Denise Chief Complaint: SOB and [...] would like to meet with SW or case work aide to discuss insurance coverage for dialysis before [...] and OT recommended IPR on discharge. manager wholesale following Cosigned by Savita Denise MD at [...] as directed by pulmonary service. 35 (Subsequent 97206) minutes spent hasv-hq-xlpt/floor time coordinating care and/or counseling patient. Savita [...] liquids prior to [facility]. [facility] a Soft and Bite Sized Diet with Mildly Thick Liquids. RN and pt subjective denying issues with swallowing at this time. Continue to monitor need for COIN MACHINE ASSEMBLER assessment given rec ent recommendations. 2. [...] flowsheets) (BUE pitting, BLE non-pitting per flowsheets) Wall Cleaner Strength: Not Performed Nutrition Assessment: pt with previously reviewed PMH who remains admitted to the ICU after she initially presented to [facility] ED on 08/12/24 in respiratory distress, pt was d/c to [facility] following admit and was found with altered mentation, NC was taken off and pulse ox was 80%, pt was brought to [facility] ED for assessment, in theED mental status [...] yesterday with recs to d/c back to [facility], wound care following due to left 4th toe abrasion, noted pt has been deemed stable for transfer to [facility] since 08/14. In terms of nutrition [...] prior [facility] d/c, [facility] receiving a Soft and Bite [...] admit --> 07/28/24: 134# bedscale, 08/07/24:126# bedscale) [place] Body Weight (lbs) (Calculated): 130 lbs [place] Body Weight (Kg) (Calculated): 59 kg % [place] Body Weight (Calculated): 83.1 % BMI (kg/m2) [...] determine Lidia Rojas RD Contact: available via [employer]igence or *[phone] * Joni Monson MD - 08/18/2024 12:55 PM EDT Images from the original note were not included. Nephrology Progress Note Patient: Sandy Deng Room number: T3-321/T3-321 A Date of Admit: 08/12/2024 LOS: 6 days Referring physician: Kemar Adames DO Outpatient Deputy Head: Christy Huerta Assessment/Plan: Mrs. Sandy Deng is a 63 year old female with PMH of CKD 4, DM type 1, HTN, CAD, COPD (3L U6mmlflekt), initially presenting with resp distress and delirium, Covid positive. Also found to havepseudomonas and staph aures PNA. She was intubated, now extubated. CT head showed a small right SDH. Consulted for UMA on CKD 4 - follows with Dr Christy Huerta ([place]). On review of available labs,Cr has been 2.4-2.8, last (04/26) Cr 2.4 eGFR 20, 24 hr vrrhjnj=8966 mg. On admit, (07/26) Cr 4.56, CRRT [...] ID -off ABs 7. Dispo: -looking for [facility] Will follow along as directed. Thank you for allowing us to participate in the care of this patient. Case discussed with primary team. Joni Monson MD [facility] ([facility]) Office phone: [phone] Office fax: [phone] 08/18/2024 Subjective Patient seen this am during [...] ml Net -3250 ml [REMOVED] Urethral Catheter Zzzjxvre-daw-Dtqszg (mL): 25 mL FIO2 needs: on 4 [...] 92.1 PLT 104* 105* 111* Recent Labs 08/16/2433808/17/2422208/18/24416 NA 131* 132* 130* [...] pleural effusions. * Mayra Almeida, SYED - COUNCILPERSON - 08/18/2024 12:05 PM EDT Images from the original note were not included. [facility] PROGRESS Note Sandy Deng [...] and tech present at bedside. [facility] PAST MEDICAL HISTORY Past Medical [...] tablet by mouth 2 times daily. Cholecalciferol ([facility] Vitamin D3) 25 MCG (1000 UT) chewable tablet Chew. clopidogrel (Plavix) 75 MG tablet Take 1 tablet by mouth daily. Continuous Glucose Sensor (Dexcom G6 Sensor) misc Continuous Glucose Transmitter (Dexcom G6 transmitter) [facility] fluticasone (Flonase) 50 MCG/ACT nasal spray Administer [...] GRAMS BY MOUTH EVERYDAY FOR ONE DAY Treletim Ellipta 200-62.5-25 MCG/ACT aerosol powder REVIEW OF [...] to follow Recommend to follow up at [facility] after hospital [...] and subdural hematoma who presents to the [facility] respiratory distress. Patient had been recently discharged 2 days prior to [facility], and was found altered, nasal [...] Normal [] Scar/Lesion/Mass Inspection of teeth/lips/gums Dentition: [x][place] Teeth []Dentures Lips/Gums: [x]Intact []Lesion Present Mucosa: [x][place] (noted dry blood in mouth) []Moist [x]Dry [...] 15.7* ABGs: No results for input(s): PHART, YLC8QDI, PO2ART, WEY0QQG, SO2ART, L0NRBPQK in thelast 72 hours. Lactic Acid: No [...] and OT recommended IPR on discharge, contacted case work aide for prior auth timeline for discharge to [facility] Spoke with pt who would like to meet with SW or case work aide to discuss insurance coverage for dialysis before pt is discharged from hospital. Encourage ambulation GI Prophylaxis: Pantoprazole PO DVT Prophylaxis: Heparin subcutaneous Disposition: Transfer to [facility], insurance auth started yesterday for [facility], expect it to take 2-3 days Cosigned by Kemar Adames DO at 08/18/2024 8:23 PM EDT Associated attestation - Kemar Adames DO - 08/18/2024 8:23 PM EDT I have personally performed a qirb-mf-btgl diagnostic evaluation on this patient on date of uqqhkjp84/16/24. History, labs, imaging studies, and electronic medical record have been reviewed by me. This note documented by the []Critical Care Fellow [x]charhouse worker []TONJA reflects my history, exam, and medical [...] original note were not included. PHYSICAL THERAPY [facility] Initial Evaluation Name/MRN: Sandy Deng ([id number]) Evaluation Date: 08/17/2024 Date of : 1960 [...] tasks. Pt present and states pt at [facility] for one night and had respiratory event. Was not seen for therapies there yet but plan to go back for continued therapies. Pain: Pt denies any current pain. Past Medical History: Past Medical History: Diagnosis Date COPD (chronic obstructive pulmonary disease) ([facility]) Diabetic neuropathy ([facility]) Hyperlipidemia Myocardial infarct ([facility]) Stage 4 chronic kidney disease ([facility]) Type 1 diabetes ([facility]) Past Surgical History: Past Surgical History: Procedure Laterality Date CORONARY ANGIOPLASTY WITH STENT PLACEMENT CORONARY ANGIOPLASTY WITH STENT PLACEMENT Admission Diagnosis: Patient Active Problem List Diagnosis Date Noted Anxiety disorder due to medical condition 08/12/2024 Atherosclerosis of coronary artery 08/12/2024 Chest pain 08/12/2024 Chronic constipation 08/12/2024 Cigarette smoker 08/12/2024 Golden's sign present 08/12/2024 Depressive disorder 08/12/2024 Diabetic polyneuropathy (CMS/HCC) (HCC) 08/12/2024 Dizziness 08/12/2024 Gastroparesis 08/12/2024 Hypoglycemia 08/12/2024 Injury of kidney 08/12/2024 Intermittent palpitations 08/12/2024 Intractable vomiting with nausea 08/12/2024 Respiratory failure with hypoxia (HCC) 08/12/2024 Skin lesion of foot 08/12/2024 Hypercapnic respiratory failure ([facility]) 08/12/2024 SDH (subdural hematoma) ([facility]) 07/26/2024 COPD (chronic obstructive pulmonary disease) ([facility]) 07/26/2024 Type 1 diabetes mellitus with kidney complication ([facility]) 07/26/2024 Myocardial infarction ([facility]) 07/26/2024 Hyperlipidemia 07/26/2024 Diabetic neuropathy associated with type 1 diabetes mellitus ([facility]) 07/26/2024 Stage 4 chronic kidney disease ([facility]) 07/26/2024 Acute renal failure ([facility]) 07/26/2024 Anemia 07/26/2024 Hypocalcemia 07/26/2024 Multiple pulmonary nodules 05/17/2024 Underweight 04/14/2024 Solitary pulmonary nodule 02/06/2024 Wheezing 10/29/2023 History of coronary artery stent placement 02/04/2018 Nicotine dependence 01/08/2017 Hypertension 01/08/2017 Diabetic ketoacidosis ([facility]) ([facility]) 12/30/2012 Medical Precautions: No active isolations [...] Responsibilities: Independent Receives Help From: Spouse Active Early Morning Babysitter: N/A Prior Level of Function Prior Level [...] Stairs) : 14 JH-HLM -HLM Score: Walked 10 steps or more (i.e. [...] of Care supervision is transferred to a [facility] Physical Therapist. Goals and/or treatment plan was established in collaboration with patient/family/other representatives. Cosigned by Maranda Greer PT at 08/17/2024 3:14 PM EDT * Jamey Muro, OT - 08/17/2024 10:28 AM EDT Images from the original note were not included. OCCUPATIONAL THERAPY [facility] Initial Evaluation Name/MRN: Sandy Deng ([id number]) Evaluation Date: 08/17/2024 Date of : 1960 Admission Date: 08/12/2024 12:53 PM Age: 63 y.o. Room/Bed: T3-321/T3-321 A Discharge Recommendation: IP Rehab Other: Continue to assess pending progress. Assessment IMPRESSION: Pt presented with respiratory failure, hypoxia, and AMS upon admission. Pt had recent hospital admission for septic shock and subdural hematoma, pt went to [facility] for 2 days and thenended up in ER for this admission. Pt is independent prior to first admission and requires assistance prior to this admission at [facility]. Per pt and , therapy [...] 08/12/2024 Chronic constipation 08/12/2024 Cigarette smoker 08/12/2024 Golden's sign present 08/12/2024 Depressive disorder 08/12/2024 Diabetic polyneuropathy ([facility]/HCC) ([facility]) 08/12/2024 Dizziness 08/12/2024 Gastroparesis 08/12/2024 Hypoglycemia 08/12/2024 Injury of kidney 08/12/2024 Intermittent palpitations 08/12/2024 Intractable vomiting with nausea 08/12/2024 Respiratory failure with hypoxia ([facility]) 08/12/2024 Skin lesion of foot 08/12/2024 Hypercapnic respiratory failure ([facility]) 08/12/2024 SDH (subdural hematoma) ([facility]) 07/26/2024 COPD (chronic obstructive pulmonary disease) ([facility]) 07/26/2024 Type 1 diabetes mellitus with kidney complication ([facility]) 07/26/2024 Myocardial infarction ([facility]) 07/26/2024 Hyperlipidemia 07/26/2024 Diabetic neuropathy associated with type 1 diabetes mellitus ([facility]) 07/26/2024 Stage 4 chronic kidney disease ([facility]) 07/26/2024 Acute renal failure ([facility]) 07/26/2024 Anemia 07/26/2024 Hypocalcemia 07/26/2024 Multiple pulmonary nodules 05/17/2024 Underweight 04/14/2024 Solitary pulmonary nodule 02/06/2024 Wheezing 10/29/2023 History of coronary artery stent placement 02/04/2018 Nicotine dependence 01/08/2017 Hypertension 01/08/2017 Diabetic ketoacidosis ([facility]) ([facility]) 12/30/2012 Medical Precautions: No active isolations [...] is from first admission, pt was ar [facility] prior to this admission Patient admitted from home. Lives With: Spouse Type of Home: single family home Home Layout: Single Level Home Home Access: Stairs to Enter without Rails (# of stairs: 3) Bathroom Shower/Tub: Walk in Shower Toilet: Standard Home Equipment: front wheeled walker Homemaking Responsibilities: Independent Receives Help From: Spouse Active Early Morning Babysitter: N/A Prior Level of Function Prior Level of ADL Function: Independent Prior Level of Mobility: Independent; Device: Front wheeled walker Prior Level of Transfers: Independent Pt requires assistance at [facility], information of independent is baseline [...] of Care supervision is transferred to a [facility] Occupational Therapist. Goals and/or treatment plan was established in collaboration with patient/family/other representatives. * Radha Kelely RCP - 08/17/2024 9:48 AM EDT [facility] Respiratory Care Department Progress Note As [...] hematoma who presents to the [facility] respiratory distress. Patient had been recently discharged 2 days prior to [facility], and was found altered, nasal cannula [...] Infusions: Objective: Last Vitals: BP MAP 135/68 (08/17/24 0400) 89 (08/17/24 040) Arterial BP MAP (na) (08/13/24 0632) Temp 36.3 C (97.4 F) (08/17/24 040) Pulse 71 (08/17/24 0400) Resp 21 (08/17/24 0400) SpO2 100 % (08/17/24399) Weight 53.9 kg (118 lb 13.3 oz) (08/17/24 0044) BMI Body mass index is 19.18 kg/m . I/O: 08/16 0700 - 08/17 06 In: 1006 [P.O.:706; I.V.:300] Out: 300 [Urine:300] [...] of teeth/lips/gums Lips/Gums: [x]Intact []Lesion Present Mucosa: [x][place] []Moist []Dry Neck: External Appearance Overall Appearance: [...] last 24 hours- BMP: Recent Labs 08/15/24 0608/16/2433808/17/24 0223 NA 130* 131* 132* K 3.9 [...] 0339 08/16/24 0829 08/16/24 1238 08/16/24 1710 08/16/24200308/17/24222 GLUCOSE 270* -- -- -- -- 362* -- -- -- -- 152* POCGLU -- 302* 340* 368* 344* -- 405* 350* 163* 174* -- Procal: No results for input(s): PROCAL in the last 72 hours. CBC: Recent Labs 08/15/24 0623 08/16/249 08/17/24222 WBC 5.0 4.8 4.5 HGB 9.5* 9.7* 9.1* HCT 30.3* 30.0* 28.7* PLT 90* 104* 105* MCV 92.4 91.5 91.7 RDW 15.9* 15.8* 15.8* ABGs: No results for input(s): PHART, IFS0GHP, PO2ART, YUS2EMS, SO2ART, R5OTDNIU in thelast 72 hours. Lactic Acid: No [...] would like to meet with SW or case work aide to discuss insurance coverage for dialysis before pt is discharged from hospital. Encourage ambulation. GI Prophylaxis: Pantoprazole PO DVT Prophylaxis: Heparin subcutaneous Disposition: Transfer to [facility] Cosigned by Kemar Adames DO at 08/17/2024 7:07 PM EDT Associated attestation - Kemar Adames DO - 08/17/2024 7:07 PM EDT I have personally performed a srld-yq-oiqo diagnostic evaluation on this patient on date of /15/24. History, labs, imaging studies, and electronic medical record have been reviewed by me. This note documented by the []Critical Care Fellow [x]charhouse worker []TONJA reflects my history, exam, and medical [...] hyperglycemia ESRD/HD Plan: Pt remains stable for F tx. Continue pred taper. Continue current insulin [...] days Referring physician: Kemar Adames DO Outpatient Deputy Head: Christy Huerta DO ASSESSMENT/PLAN: #Nonoliguric UMA, dialysis dependent: CLOTHING SORTER dependent since 07/26 last admit. Baseline Cr had been 2.4-2.8, last (04/26) Cr 2.4 eGFR 20, 24 hr ojmdyhw=4041 mg. -Suspected ATN in setting of infection/HD [...] Skin: warm and dry, no rash Access: [facility] with clean dressing DATA: LABS: Recent Labs 08/14/2440308/15/2462208/16/24338 WBC 5.2 5.0 4.8 HGB 9.2* 9.5* 9.7* HCT 28.7* 30.3* 30.0* MCV 91.1 92.4 91.5 PLT 79* 90* 104* Recent Labs 08/14/24 04008/15/2462208/16/24338 NA 130* 130* 131* K 3.5 3.9 [...] 231 08/12/2024 Lab Results Component Value Date [id number] 932 (H) 08/12/2024 FOLATE 10.8 08/12/2024 Lab [...] LABFUNG IMAGING: POCT glucose meter Performed by: [facility], [address] [place] [id number] CLIA ID: [id number] POCT glucose meter Performed by: [facility], [address] [place] [id number] CLIA ID: [id number] Signed: Jose Carlos Medrano MD Nephrology [facility] ([facility]) Pager: [phone] Office Office * Sherri Domingo, CONTRACTING ANALYST - COUNCILPERSON - 08/16/2024 10:32 AM EDT Images from the original note were not included. [facility] Care PROGRESS Note Sandy Deng [...] tablet by mouth 2 times daily. Cholecalciferol ([facility] Vitamin D3) 25 MCG (1000 UT) chewable [...] prep barrier wipe daily and PRN, leave WHITE LEAD FILTERER Nutritional support Wound Care to follow Recommend to follow up at [facility] after hospital [...] (L) 08/12/20242332 BILITOT 0.9 08/12/20242332 ALKPHOS 52 08/12/2024 2333 AST 18 08/12/2024 2333 ALT 13 08/12/2024 2333 PROCAL 0.16 (H) 08/05/2024 0256 PROCAL 2.48 (H) 07/26/2024 1850 Lab Results Component Value Date/Time WBC 4.8 08/16/2024338 HGB 9.7 (L) 08/16/2024338 HGB 8.3 08/13/2024 0658 HCT 30.0 (L) 08/16/2024338 PLT 104 (L) 08/16/2024338 LYMPHOPCT 10.1 (L) 08/16/2024338 LYMPHOPCT 7 (L) 08/13/2024 050 MONOPCT 6.9 08/16/2024338 MONOPCT 0 (L) 08/13/2024 050 BASOPCT 0.2 08/16/2024338 NEUTROABS 3.9 08/16/2024338 Micro: [...] hematoma who presents to the [facility] respiratory distress. Patient had been recently discharged 2 days prior to [facility], and was found altered, nasal [...] index is 20.1 kg/m . I/O: 08/15 700 - 08/16 659 In: 418 [P.O.:318; I.V.:100] [...] Normal [] Scar/Lesion/Mass Inspection of teeth/lips/gums Dentition: [][place] Teeth []Dentures Lips/Gums: [x]Intact []Lesion Present Mucosa: [x][place] []Moist []Dry Neck: External Appearance Overall Appearance: [...] last 24 hours- BMP: Recent Labs 08/14/24 04008/15/2462208/16/24338 NA 130* 130* 131* K 3.5 3.9 [...] 08/15/24 1134 08/15/24 1706 08/15/24 2100 08/16/24 033 GLUCOSE 361* -- -- -- -- 270* -- -- -- -- 362* POCGLU -- 356* 294* 233* 248* -- 302* 340* 368* 344* -- Procal: No results for input(s): PROCAL in the last 72 hours. CBC: Recent Labs 08/14/24 0404 08/15/2462208/16/24338 WBC 5.2 5.0 4.8 HGB 9.2* 9.5* 9.7* HCT 28.7* 30.3* 30.0* PLT 79* 90* 104* MCV 91.1 92.4 91.5 RDW 16.4* 15.9* 15.8* ABGs: Recent Labs 08/13/24 0658 PHART 7.291* WOT7EGV 49.4* PO2ART 84.7 TEA8XHI 23.3 P5XQLCZY 30% Oxygen Lactic Acid: Recent Labs 08/13/24 [...] would like to meet with SW or case work aide to discuss insurance coverage for dialysis before pt is discharged from hospital. GI Prophylaxis: Pantoprazole PO DVT Prophylaxis: SCDs, subcutaneous heparin Disposition: Transfer to [facility] Cosigned by Kemar Adames DO at 08/16/2024 8:35 PM EDT Associated attestation - Kemar Adames DO - 08/16/2024 8:35 PM EDT I have personally performed a ihzu-dc-bkrf diagnostic evaluation on this patient on date of /14/24 . History, labs, imaging studies, and electronic medical record have been reviewed by me. This note documented by the [x]charhouse worker []TONJA reflects my history, exam, and medical [...] days Referring physician: Elizabeth Tyler MD Outpatient Deputy Head: Dr. Christy Huerta Assessment / Plan 63 [...] hypercapneic respiratory failure. 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 Baseline Cr had been 2.4-2.8, last (04/26) Cr 2.4 eGFR 20, 24 hr eoqracz=3415 mg. -Suspected ATN in setting of infection/HD [...] last admit -On vanc/zosyn -ID evaluating Access: [facility] 07/29 Recommendations: -No acute indications for HD, next treatment tomorrow 08/16 -Repeat lasix 100 mg IV today -Will follow pancytopenia workup per primary, using citrate locks for HD line pending HIT testing -Renal function panel daily Thank you for allowing us to participate in the care of this patient. Please call with any questions. Saroj Gaffney MD [facility] ([facility]) Office phone: [phone] Office fax: [phone] Pager: [phone] 08/15/24 Subjective No acute events. Fairly modest response to high dose lasix yesterday and solutes uptrending. Still short of breath today and with some LE edema. Past Medical History Past Medical History: Diagnosis Date COPD (chronic obstructive pulmonary disease) ([facility]) Diabetic neuropathy (HCC) Hyperlipidemia Myocardial infarct ([facility]) Stage 4 chronic kidney disease ([facility]) Type 1 diabetes ([facility]) Medications Scheduled Meds:aspirin, 81 mg, Oral, [...] Skin: warm and dry, no rash Access: [place] [facility] with clean dressing LABS Labs reviewed. [...] hematoma who presents to the [facility] respiratory distress. Patient had been recently discharged 2 days prior to [facility], and was found altered, nasal [...] Vitals: BP MAP 139/59 (08/15/24 0000) 80 (08/15/24) Arterial BP MAP (na) (08/13/24 0632) Temp 36.7 C (98 F) (08/15/24) Pulse 81 (08/15/24) Resp 16 (08/15/24) SpO2 100 % (08/15/24) Weight 61.5 kg (135 lb 9.3 oz) (08/14/24 0600) BMI Body mass index is 21.88 kg/m . I/O: 08/14 07 - 08/15 659 In: 735 [P.O.:236; I.V.:499] [...] Normal [] Scar/Lesion/Mass Inspection of teeth/lips/gums Dentition: [][place] Teeth []Dentures Lips/Gums: [x]Intact []Lesion Present Mucosa: [x][place] []Moist []Dry Neck: External Appearance Overall Appearance: [...] last 24 hours- BMP: Recent Labs 08/12/24 23308/13/24 0507 08/14/24 0404 NA 130* 134* 130* [...] 2333 08/13/24 0658 PHART -- -- 7.291* XSF8BLZ -- -- 49.4* PO2ART -- -- 84.7 RZM4XAW -- -- 23.3 K1OQNLQL Bi-PAP 30% Oxygen 30% Oxygen Lactic Acid: [...] PO DVT Prophylaxis: SCDs Disposition: Transfer to [facility] Cosigned by Elizabeth Tyler MD at 08/15/2024 1:22 PM EDT Associated attestation - Elizabeth Tyler MD - 08/15/2024 1:22 PM EDT I have personally performed a zvqk-el-tmum diagnostic evaluation on this patient on date of gbwkylg31/13/24. History, labs, imaging studies, and electronic medical record have been reviewed by me. This note documented by the [x]charhouse worker []TONJA reflects my history, exam, and medical [...] days Referring physician: Elizabeth Tyler MD Outpatient Deputy Head: Dr. Christy Huerta Assessment / Plan 63 [...] hypercapneic respiratory failure. 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 Baseline Cr had been 2.4-2.8, last (04/26) Cr 2.4 eGFR 20, 24 hr thshgug=4670 mg. -Suspected ATN in setting of infection/HD [...] last admit -On vanc/zosyn -ID evaluating Access: [facility] 07/29 Recommendations: -No acute indications for HD, monitoring for recovery -Lasix challenge today 100 mg IV x1 -Will follow pancytopenia workup per primary, using citrate locks for HD line pending HIT testing -Renal function panel daily Thank you for allowing us to participate in the care of this patient. Please call with any questions. Saroj Gaffney MD [facility] ([facility] Office phone: [phone] Office fax: [phone] Pager: [phone] 08/14/24 Subjective No acute events. No issues with HD yesterday, UF 2.5L. Patient somewhat more awake/alert today. Slight shortness of breath and wheezing. No other complaints. Past Medical History Past Medical History: Diagnosis Date COPD (chronic obstructive pulmonary disease) ([facility]) Diabetic neuropathy (HCC) Hyperlipidemia Myocardial infarct (HCC) Stage 4 chronic kidney disease ([facility]) Type 1 diabetes ([facility]) Medications Scheduled Meds:aspirin, 81 mg, Oral, [...] Yes, addressed in today's progress note Anticipated Tatums Medications (ICU initiated) or Dose Changes and [...] hours of ICU transfer, page MICU res director of cardiac rehabilitation for clarifications. * Janell Booker MD - [...] [facility] and today was found altered, nasal [...] Normal [] Scar/Lesion/Mass Inspection of teeth/lips/gums Dentition: [][place] Teeth []Dentures Lips/Gums: [x]Intact []Lesion Present Mucosa: [][place] []Moist []Dry Neck: External Appearance Overall Appearance: [...] last 24 hours BMP: Recent Labs 08/12/24233208/13/24 0507 08/14/24 0404 NA 130* 134* 130* [...] 2333 08/13/24 0658 PHART -- -- 7.291* LXK0GLJ -- -- 49.4* PO2ART -- -- 84.7 SFF3UVH -- -- 23.3 [id number] Bi-PAP 30% Oxygen 30% Oxygen Lactic Acid: [...] EEG with video is abnormal. Continuous diffuse yxbolngj-st-ungrad diffuse slowing is seen unresponsive to stimulation. REM sleep architecture is observed. At times, fronto-centrally predominant fast activity is observed reminiscent of sleep spindles. No interictal epileptiform activity nor seizures are observed. The findings are supportive of a etcguwnn-hg-bxkmto global encephalopathy non- specific as to etiology. [...] PM EDT I have personally performed a qlot-km-jivw diagnostic evaluation on this patient on date of gkfzmci78/12/24. History, labs, imaging studies, and electronic medical record have been reviewed by me. This note documented by the [x]charhouse worker []TONJA reflects my history, exam, and medical [...] Abraham RRT - 08/14/2024 12:36 AM EDT [facility] Respiratory Care Department Progress Note Comment [...] requiring intubation, was followed by RD and COIN MACHINE ASSEMBLER, underwent MBSS 08/04 with pureed/mildly thick liquids recs, was later upgraded to regular textures/mildly thick liquids. Per paper chart at [facility] pt was ordered a Soft and Bite Sized Diet with Mildly Thick Liquids. Did not appear to be receiving ONS. Recommend pt not be without nutrition for >72 hours if medically able. --> if pt is able to advance oral diet, consider goal of ALLI, CHO Controlled and monitor renal labs and need for additional therapeutic restrictions in setting of ESRD/HD. Consider COIN MACHINE ASSEMBLER evaluation for texture/consistency recommendations. Do feel [...] data (need further clarification on PO intake FLIGHT NURSE, pt weight appeared to be downtrending during recent admit however is now back up to similar weight at start of recent admit, will continue to monitor criteria) Context: Acute Illness Findings of the 6 clinical characteristics of malnutrition: Energy Intake: Unable to assess (during recent admit pt required intubation and EN, s/p MBSS with altered consistency diet recs, at [facility] pt was ordered soft and bite sized/mildly thick liquids, unclear intake FLIGHT NURSE, pt is currently NPO and requiring NIV) [...] Mild (BUE pitting, BLE non-pitting per flowsheets) Wall Cleaner Strength: Not Performed Nutrition Assessment: pt with PMH significant for COPD (4L NC at baseline), ESRD on HD, DM1, HLD and recent admission to ICU for septic shock and subdural hematoma (07/26-08/10/24) who [facility] 08[facility]24 in respiratory distress, pt was d/c to [facility] following recent admit and was found with altered mentation, nasal cannula was taken off and pulse ox at 80%, pt brought to [facility] ED for assessment, in the ED mental [...] time, of note pt was followed by COIN MACHINE ASSEMBLER during recent admit- she was on altered consistency diet, underwent MBSS on 08/04 with pureed/mildly thick liquids recs, was later upgraded to regular textures/mildly thick liquids on 08/09 prior to d/c, at time of assessment pt is sleeping soundly in bed, NIV in place and pt on cEEG, per paper chart at [facility] ptwas receiving a Soft and Bite [...] On: Kcal/kg Weight Used for Energy Requirements: [place] Weight for Energy Calculation (kg): 59.1 kg Total Energy Requirements (kcals/day): 1655-1891kcals/day Weight Used for Protein Requirements: [place] Weight in Kg Used for Protein Requirements: [...] admit --> 07/28/24: 134# bedscale, 08/07/24:126# bedscale) [place] Body Weight (lbs) (Calculated): 130 lbs [place] Body Weight (Kg) (Calculated): 59 kg % [place] Body Weight (Calculated): 104.6 % BMI (kg/m2) [...] determine Lidia Rojas RD Contact: available via EPIC chat or *[phone] * Janell Booker MD - 08/13/2024 6:23 [...] [facility] and today was found altered, nasal [...] kg/m . I/O: 08/12 700 - 08/13 0659 In: 2480.5 [I.V.:2075] Out: 501 [Urine:501] Ventilator: [...] Normal [] Scar/Lesion/Mass Inspection of teeth/lips/gums Dentition: [][place] Teeth []Dentures Lips/Gums: [x]Intact []Lesion Present Mucosa: [][place] []Moist []Dry Neck: External Appearance Overall Appearance: [...] not displayed. ABGs: Recent Labs 08/12/24 1604 08/12/24233208/13/24 0658 PHART -- -- 7.291* DLA8FGR -- -- 49.4* PO2ART -- -- 84.7 MWR2WCU -- -- 23.3 Z0HUYLJN Bi-PAP 30% Oxygen 30% Oxygen Lactic Acid: [...] Report Dictated on Electronically Signed By: Otilia Wiely MD Electronically Signed Date/Time: 08/12/2024 11:12 PM EDT XR chest 1 view Final Result Suspect mild pulmonary edema with small pleural effusions. Report Dictated on Electronically Signed By: Kami Brown MD Electronically Signed Date/Time: 08/12/2024 1:13 PM EDT EEG: This continuous EEG with video is abnormal. Continuous diffuse jwljwqlv-nn-chbhbl diffuse slowing is seen unresponsive to stimulation. REM sleep architecture is observed. At times, fronto-centrally predominant fast activity is observed reminiscent of sleep spindles. No interictal epileptiform activity nor seizures are observed. The findings are supportive of a thjpealp-ht-eciqvy global encephalopathy non- specific as to etiology. [...] will defer abx until ID gives recs Babi in urine -pt was asymptomatic at admission [...] PM EDT I have personally performed a wptt-cc-wwom diagnostic evaluation on this patient on date of xolrliu57/11/24. History, labs, imaging studies, and electronic medical record have been reviewed by me. This note documented by the [x]charhouse worker []TONJA reflects my history, exam, and medical [...] so far today, excludingprocedures. documented in this [facility]10-21-2024 Nurse Note* Liliana Juanis Bennett - 08/23/2024 3:02 PM EDT Patient Name: Sandy Deng Patient : 1960 Acct: [id number] Date of Admission: 08/12/2024 [facility] A Code Status: Full Code Allergies: [...] - Before each treatment: Dialysis Machine No.: [id number] RO Machine Number: [id number] Dialyzer Lot No.: [id number] Tubing Lot Number: [id number] [employer] Secure: Yes Venous Parameters Set: Yes Arterial Parameters Set: Yes NS Bag: Yes Saline Line Double Clamped: Yes Dialyzer: Nipro Prime Volume (mL): 200 mL RO Machine Number: [id number] RO Machine Log Sheet Completed: Yes Machine Alarm Self Test: Completed, Passed (6025) (08/23/24 1323) Air Foam Detector: Tested, Proper Function, pH Reading Extracorporeal Circuit Tested for Integrity: Yes Machine Conductivity: 13.6 Manual Conductivity: 13.6 Manual Ph: 7 Bleach Test (Neg): Yes Bath Temperature: 36 C (96.8 F) Conductivity Meter Serial #: [id number] Machine Functioning Alarm Free? Yes Dialysis Bath: K+ (Potassium): 4 Ca+ (Calcium): 2.5 Na+ (Sodium): 137 HCO3 (Bicarb): 35 Bicarbonate Concentrate Lot No.: [id number] Acid Concentrate Lot No.: [id number] Chlorine Testing - Before each treatment and every 4 hours: Time On: 1426 Time Off: 1726 Treatment Goal: 2-3L as tolerated Weight Height: 167.6 cm (5' 6) (08/22/242328) Weight: 55.4 kg (122 lb 2.2 oz) [...] Name: Sandy Deng Patient : 1960 Acct: [id number] Date of Admission: 08/12/2024 Room/Bed: T3304/T3304 A Code Status: Full Code Allergies: No [...] artery Chest pain Chronic constipation Cigarette smoker Golden's sign present Depressive disorder Diabetic ketoacidosis (CMS/HCC) [...] 0753 -- -- -- Tachypnea -- Clear;Diminished [place] Dry;Cool -- Soft;Rounded;Nondistended Active;Audible 08/21/24 1010 Alert (0) -- Regular -- Bi-PAP Diminished [place] Cool;Dry [place] Soft Active 08/21/24 1320 Alert (0) x3 Regular -- Bi-PAP Diminished [place] Cool;Dry [place] Soft Active Labs Lab Results [...] - Before each treatment: Dialysis Machine No.: [id number] Machine Number: [id number] Dialyzer Lot No.: [id number] Tubing Lot Number: [id number] All Connections Secure: Yes Venous Parameters Set: Yes Arterial Parameters Set: Yes NS Bag: Yes Saline Line Double Clamped: Yes Dialyzer: Nipro Prime Volume (mL): 200 mL RO Machine Number: [id number] RO Machine Log Sheet Completed: Yes Machine [...] HCO3 (Bicarb): 35 Bicarbonate Concentrate Lot No.: [id number] Acid Concentrate Lot No.: [id number] Chlorine Testing - Before each treatment and every 4 hours: Time On: 1015 Time Off: 1315 Treatment Goal: 2000 Weight Height: 167.6 cm (5' 6) (08/18/24 1207) Weight: 55.2 kg (121 lb 11.1 oz) (08/21/24 040) BMI (Calculated): 19.65 (08/21/24399) 1st check: less than 0.1 ppm at: [...] Temporal 60 19 100 % -- 08/20/24 1943 -- -- -- 61 -- 100 % [...] Name: Sandy Deng Patient : 1960 Acct: [id number] Date of Admission: 08/12/2024 [facility]: [facility] A Code Status: Full Code Allergies: No [...] artery Chest pain Chronic constipation Cigarette smoker Golden's sign present Depressive disorder Diabetic ketoacidosis (CMS/HCC) [...] - Before each treatment: Dialysis Machine No.: [id number] RO Machine Number: [id number] Dialyzer Lot No.: [id number] Tubing Lot Number: [id number] All Connections Secure: Yes Venous Parameters Set: Yes Arterial Parameters Set: Yes NS Bag: Yes Saline Line Double Clamped: Yes Dialyzer: Nipro Prime Volume (mL): 250 mL RO Machine Number: [id number] RO Machine Log Sheet Completed: Yes Machine Alarm Self Test: Completed, Passed (08/18/24799) Air Foam Detector: Tested, Proper Function, pH Reading Extracorporeal Circuit Tested for Integrity: Yes Machine Conductivity: 13.9 Manual Conductivity: 14 Manual Ph: 7.2 Bleach Test (Neg): Yes Bath Temperature: 36 C (96.8 F) Conductivity Meter Serial #: [id number] Machine Functioning Alarm Free? Yes Dialysis Bath: K+ (Potassium): 3 Ca+ (Calcium): 2.5 Na+ (Sodium): 137 HCO3 (Bicarb): 35 Bicarbonate Concentrate Lot No.: [id number] Acid Concentrate Lot No.: [id number] Chlorine Testing - Before each treatment and [...] Name: Sandy Deng Patient : 1960 Acct: [id number] Date of Admission: 08/12/2024 Room/Bed: [facility] A Code Status: Full Code [...] Lab Results Component Value Date/Time WBC 4.8 08/16/2024 0339 HGB 9.7 (L) 08/16/2024 0339 HGB 8.3 08/13/2024 0658 HCT 30.0 (L) 08/16/2024338 PLT 104 (L) 08/16/2024338 NA 131 (L) 08/16/2024338 K 4.1 08/16/2024338 CL 98 08/16/2024338 CO2 27 08/16/2024338 BUN 38 (H) 08/16/2024338 CREATININE 3.90 (H) 08/16/2024338 CALCIUM 7.2 (L) 08/16/2024338 PHOS 4.5 08/16/2024338 IV Drips and Rate/Dose Safety - Before each treatment: Dialysis Machine No.: [id number] RO Machine Number: [id number] Dialyzer Lot No.: [id number] Tubing Lot Number: [id number] All Connections Secure: Yes Venous Parameters Set: Yes Arterial Parameters Set: Yes NS Bag: Yes Saline Line Double Clamped: Yes Dialyzer: Nipro Prime Volume (mL): 200 mL RO Machine Number: [id number] RO Machine Log Sheet Completed: Yes Machine Alarm Self Test: Completed, Passed (1340) (08/16/241340) Air Foam Detector: Tested, Proper Function Extracorporeal Circuit Tested for Integrity: Yes Machine Conductivity: 13.4 Manual Conductivity: 13.8 Manual Ph: 7.4 Bleach Test (Neg): Yes Bath Temperature: 36 C (96.8 F) Conductivity Meter Serial #: [id number] Machine Functioning Alarm Free? Yes Dialysis Bath: K+ (Potassium): 3 Ca+ (Calcium): 2.5 Na+ (Sodium): 137 HCO3 (Bicarb): 35 Bicarbonate Concentrate Lot No.: [id number] Acid Concentrate Lot No.: [id number] Chlorine Testing - Before each treatment and every 4 hours: Time On: 1351 Time Off: 1651 Treatment Goal: 3L as tolerated per Dr. Medrano at bedside Weight Height: 167.6 cm (5' 6) (08/13/24 0813) Weight: 56.5 kg (124 lb 9 oz) (08/16/241344) BMI (Calculated): 20.11 (08/16/241344) 1st check: less than 0.1 ppm at: [...] Name: Sandy Deng Patient : 1960 Acct: [id number] Date of Admission: 08/12/2024 Room/Bed: T3-321/T3-321 A [...] - Before each treatment: Dialysis Machine No.: [id number] Machine Number: [id number] All Connections Secure: Yes Venous Parameters Set: Yes Arterial Parameters Set: Yes NS Bag: Yes Saline Line Double Clamped: Yes Dialyzer: Nipro Prime Volume (mL): 200 mL RO Machine Number: [id number] RO Machine Log Sheet Completed: Yes Machine Alarm Self Test: Completed, Passed (08/13/24 1520) Air Foam Detector: Tested, Proper Function, pH Reading Extracorporeal Circuit Tested for Integrity: Yes Machine Conductivity: 13.8 Manual Conductivity: 13.8 Manual Ph: 7 Bleach Test (Neg): Yes Bath Temperature: 36 C (96.8 F) Conductivity Meter Serial #: [id number] Machine Functioning Alarm Free? Yes Dialysis Bath: [...] -160 mmHg 160 mmHg 90 600 Yes 207 removed 08/13/24 1745 400 mL/min 1000 ml/hr [...] -- 70 22 97 % -- -- 08/12/24 210 131/50 36.7 C (98 F) Axillary 76 [...] chat Response: No new orders Notification Time: 8856 Reason for Communication: Critical lab value (1/2 [...] Stroke team narrator completed. documented in this [facility]10-21-2024 Consult note* Eladio Lebron MD - [...] tablet by mouth 2 times daily. Cholecalciferol ([facility] Vitamin D3) 25 MCG (1000 UT) chewable tablet Chew. clopidogrel (Plavix) 75 MG tablet Take 1 tablet by mouth daily. Continuous Glucose Sensor (Dexcom G6 Sensor) [facility] Continuous Glucose Transmitter (Dexcom G6 transmitter) [facility] estradiol (Estrace) 1 MG tablet Take 1 [...] 10 days. Insulin Disposable Pump (Omnipod 5 [id number] Intro Gen 5) kit Insulin Disposable Pump (Omnipod 5 [id number] Pods Gen 5) misc insulin glargine (Lantus) [...] contact the on-call urology resident in the administrative assistant coordinator for void trial instructions. Would recommend doing void trial prior to the day of anticipated discharge if able. Follow up with urology for continued outpatient management Please page the director of cardiac rehabilitation urology resident with any questions or concerns [...] mouth 2 times daily. Historical Provider, Cholecalciferol ([facility] Vitamin D3) 25 MCG (1000 UT) chewable tablet Chew. Historical Provider, clopidogrel (Plavix) 75 MG tablet Take 1 tablet by mouth daily. Historical Provider, Continuous Glucose Sensor (Dexcom G6 Sensor) [facility] 07/22/24 Historical Provider, Continuous Glucose Transmitter (Dexcom G6 transmitter) [facility] 07/25/24 Historical Provider, estradiol (Estrace) 1 MG [...] mouth 2 times daily. 08/10/24 08/10/25 Khai Espana, guaiFENesin (Robitussin) 100 MG/5ML liquid Take 10 mL (200 mg) by mouth every 4 hours as needed forcough or congestion for up to 10 days. 08/10/24 08/20/24 Khai Espana DO Insulin Disposable Pump (Omnipod 5 [id number] Intro Gen 5) kit 12/03/23 Historical Provider, Insulin Disposable Pump (Omnipod 5 [id number] Pods Gen 5) misc 07/15/24 Historical Provider, [...] Normal [] Scar/Lesion/Mass Inspection of teeth/lips/gums Dentition: [x][place] Teeth []Dentures Lips/Gums: [x]Intact []Lesion Present Mucosa: [][place] []Moist [x]Dry Neck: External Appearance Overall Appearance: [...] hours- BMP: Recent Labs 08/18/2441608/19/24 0550 08/20/24 05 NA 130* 126* 129* K 3.8 4.4 [...] 08/20/24 1024 08/20/24 1250 PHART 7.209* 7.244* GZU6DSB 71.5* 68.4* PO2ART 63.4* 36.2* CSX5UUV 27.9* 28.9* [id number] Nasal cannula Bi-PAP Labs in Last 3 [...] PM EDT I have personally performed a apky-cb-rabv diagnostic evaluation on this patient on date of ghaccuq02/18/24. History, labs, imaging studies, and electronic medical record have been reviewed by me. This note documented by the [x]Critical Care Fellow []charhouse worker []TONJA reflects my history, exam, and medical [...] [facility] - Infectious Diseases Attending Consult Note Reason for Consult: Respiratory distress, change in MS,lethargy, and pancytopenia and candiduria History of Present Illness: 63 F, DMT1, COPD on 4 L, recently admitted to [facility] form 07/26-08/10 for Respiratory failure, treated as aspiration pNA already, septic shock, off presors, UMA/CKD, and finally transferred to Rehab. Overthere she pulled her NC< and found altered, hypoxic, lethargic. Transferred back to [facility], and required NIV initially. Today she is [...] infusion 100 mL/hr IntraVENous PRN Ana Rosa Carlin, DO dextrose 50 % solution 12.5 g 12.5 g IntraVENous PRN Ana Rosa Carlin, DO [Held by provider] fluticasone (Flonase) [...] mg IntraVENous q6h PRN Ana Rosa Edie Carlin DO QUEtiapine (SEROquel) tablet 25 mg 25 mg Oral Nightly May Wang DO 25 mg at 08/13/24 0131 sodium chloride 0.9 % infusion 250 mL/hr IntraVENous PRN April Soto MD [Held by provider] tiotropium (Spiriva Respimat) 2.5 MCG/ACT inhaler 2 puff 2 puff Inhalation DailyAna Rosa Edie Carlin DO Allergies: No Known Allergies Social [...] edema with small pleural effusions. Antimicrobials,Start/End Dates: Tzhfcus53/10- Impression: 63 F, admitted with: Respiratory distress- [...] days Referring physician: Elizabeth Tyler MD Outpatient Deputy Head: Dr. Christy Huerta Reason for Consult UMA [...] hypercapneic respiratory failure. 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 Baseline Cr had been 2.4-2.8, last (04/26) Cr 2.4 eGFR 20, 24 hr ijjzete=7716 mg. -Suspected ATN in setting of infection/HD [...] -S/p 1 dose vanc -ID evaluating Access: RI TD 07/29 Case was discussed with ICU team. [...] call with any questions. Saroj Gaffney MD [facility] ([facility]) Office phone: [phone] Office fax: [phone] Pager: [phone] 08/13/24 History of Present Illness Sandy Deng [...] with hypercapneic respiratory failure. Recently discharged to [facility] from [facility] after admission for sepsis/shock as above. Now [...] Does not appear patient had HD at [facility] 08/12 (last treatment here 08/10), Cr relatively [...] from the original note were not included. [facility] Wound Care CONSULT Note Sandy Deng [...] tablet by mouth 2 times daily. Cholecalciferol ([facility] Vitamin D3) 25 MCG (1000 UT) chewable [...] to follow Recommend to follow up at [facility] after hospital [...] Name: Sandy Deng Patient : 1960 Acct: [id number] Date of Admission: 08/12/2024 Room/Bed: [facility] A PCP: Bird Lujan Stroke [...] mouth 2 times daily. Historical Provider, Cholecalciferol ([facility] Vitamin D3) 25 MCG (1000 UT) chewable tablet Chew. Historical Provider, clopidogrel (Plavix) 75 MG tablet Take 1 tablet by mouth daily. Historical Provider, Continuous Glucose Sensor (Dexcom G6 Sensor) [facility] 07/22/24 Historical Provider, Continuous Glucose Transmitter (Dexcom G6 transmitter) [facility] 07/25/24 Historical Provider, estradiol (Estrace) 1 MG [...] Espana DO Insulin Disposable Pump (Omnipod 5 [id number] Intro Gen 5) kit 12/03/23 Historical Provider, Insulin Disposable Pump (Omnipod 5 [id number] Pods Gen 5) [facility] 07/15/24 Historical Provider, insulin glargine (Lantus) 100 [...] 800 mg at night 08/10/24 Historical Provider, MD Kelin LOPEZ 100 UNIT/ML pen injection Inject 12 units 3 times a day by subcutaneous route. 08/10/24 Historical Provider, metoprolol tartrate (Lopressor) 50 MG tablet Take 1 tablet by mouth 2 times daily. 08/10/24 Historical Provider, Current Hospital Medications: Current Facility-Administered Medications: [Held by provider] albuterol 108 (90 Base) MCG/ACT inhaler 2 puff, 2 puff, Inhalation, q6h PRN, Ana Rosa Edie Carlin, DO [Held by provider] aspirin EC tablet 81 mg, 81 mg, Oral, Daily, Ana Rosa Edie Carlin, DO [Held by provider] atorvastatin (Lipitor) tablet 20 mg, 20 mg, Oral, Nightly, Ana Rosa Edie Carlin, DO [Held by provider] busPIRone (Buspar) tablet 7.5 mg, 7.5 mg, Oral, BID, Ana Rosa Edie Carlin, DO [Held by provider] clopidogrel (Plavix) [...] g, 12.5 g, IntraVENous, PRN, Ana Rosa Edie Carlin, DO [Held by provider] fluticasone (Flonase) nasal spray 2 spray, 2 spray, Each Nostril, Daily, Ana Rosa Edie Carlin, DO [Held by provider] gabapentin (Neurontin) capsule 200 mg, 200 mg, Oral, BID, Ana Rosa Edie Carlin, DO glucagon (human recombinant) injection 1 mg, 1 mg, IntraMUSCular, PRN, Ana Rosa Irizarry Carlin, DO glucose oral gel 15 g, 15 g, Oral, PRN, Ana Rosa Irizarry Carlin, DO [Held by provider] guaiFENesin (Robitussin) 100 MG/5ML liquid 200 mg, 200 mg, Oral, q4h PRN, Rodolfo Carlin, DO [Held by provider] heparin injection 5,000 Units, 5,000 Units, SubCUTAneous, 2 times per day, Ana Rosa Irizarry Carlin, DO, 5,000 Units at 08/12/242049 Insulin Lispro (Humalog) injection 0-6 Units, 0-6 Units, SubCUTAneous, q6h, Ana Rosa Irizarry Carlin DO,3 Units at 08/12/241823 ipratropium-albuterol (Duo-Neb) 0.5-2.5 mg/3 mL nebulizer solution 3 mL, 3 mL, Nebulization, TID, Ana Rosa Pros DO, 3 mL at 08/12/24 2019 [Held by provider] lisinopril tablet 2.5 mg, 2.5 mg, Oral, Daily, Ana Rosa Pros DO methylPREDNISolone sod suc (PF) (SOLU-Medrol) 40 MG injection 40 mg, 40 mg, IntraVENous, q6h, Ana Rosa Irizarry Carlin, DO, 40 mg at 08/12/24 1640 [Held by provider] metoprolol tartrate (Lopressor) tablet 50 mg, 50 mg, Oral, BID, Ana Rosakosta Irizarry Carlin, DO [Held by provider] mirtazapine (Remeron) tablet 7.5 mg, 7.5 mg, Oral, Nightly, Ana Rosa Pros, DO [Held by provider] mometasone-formoterol (Dulera 200) 200-5 MCG/ACT inhaler 2 puff, 2 puff, Inhalation, BID, Ana Rosa Irizarry Carlin, DO mupirocin (Bactroban) 2 % ointment 1 Application, 1 Application, Nasal, BID, Ana Rosa Irizarry Carlin, DO, 1 Application at 08/12/242049 ondansetron ODT (Zofran-ODT) disintegrating tablet 4 mg, 4 mg, Oral, q8h PRN OR ondansetron (Zofran) injection 4 mg, 4 mg, IntraVENous, q6h PRN, Ana Rosa Carlin DO sodium chloride 0.9 % infusion, 250 [...] 78 20 100 % -- -- 08/12/24 2045 143/59 37.1 C (98.7 F) Temporal 76 [...] 445 ms QTC Interval 450 ms P [place] 76 degrees QRS [place] -24 degrees T Wave [place] 51 degrees LA Interval 162 ms Basic metabolic panel Collection [...] PM Result Value Ref Range PRODUCT CODE [id number] Unit Number [id number] Unit ABO O Unit RH POS Crossmatch interpretation COMP Dispense Status Transfused Blood Expiration Date [id number] Product Blood Type 5100 Unit Volume 300 [...] non thrombolytic stroke workup documented in this [facility]10-21-2024 Hospital Discharge instructions* Discharge Instr - CHELO* Sindy Garrison RN - 08/23/2024 1:25 PM EDT Images from the original note were not included. Continuity of Care Form Patient Name: Sandy Deng : 1960 Admit date: 08/12/2024 Discharge date: 08/24/24 Code Status Order: Full Code Advance Directives: N Admitting Physician: Kemar Adames DO PCP: Bird Lujan Discharging Nurse: sindy soriano Discharging Hospital Unit/Room#: Q2-932/W3-555 A Discharging Unit Emergency Contact: Extended Emergency Contact Information Primary Emergency Contact: BinBobbi Mobile Relation: Daughter Preferred language: Chilean Dietitian Helper needed? No Secondary Emergency Contact: Jose Deng Mobile Relation: Spouse Preferred language: Chilean Dietitian Helper needed? No Past Surgical History: Past Surgical [...] assistance Toileting Minimal assistance Feeding Minimal assistance It Infrastructure Manager Minimal assistance Med Delivery yes Wound Care Documentation and Therapy: Wound/Incision 08/12/24 Other (comment) Toe - fourth Anterior;Left (Active) Site Assessment Black 08/23/24 0800 Rosana-Wound Assessment Pale;Purple 08/23/24 0800 Drainage Description Unable to assess 08/22/242052 Odor None 08/23/24 0800 Drainage Amount None 08/23/24 0800 Treatments Site care 08/23/24799 Primary Dressing Open to air 08/23/24799 Topical Other 08/15/24 07 Number of days: 11 Wound/Incision 08/18/24 Pressure Injury Coccyx (Active) Site Assessment Painful;Pale;[place] 08/23/24799 Rosana-Wound Assessment Blanchable erythema;Fragile;Intact 08/23/24799 Wound [...] sleeping Rehab Therapies: physical therapy, occupational therapy, aids social worker, and recreation therapy Weight Bearing Status/Restrictions: no restriction Other Medical Equipment (for information only, NOT a DME order): none Other Treatments: n/a Patient's personal belongings (please select all that are sent with patient): none RN SIGNATURE: MANAGEMENT/SOCIAL WORK SECTION Inpatient Status Date: 08/12/2024 Discharging to Facility/ Agency Name: [facility] Address: [address] [place] [address] Fax: Dialysis Facility (if applicable) Name: Address: Dialysis Schedule: Phone: Fax: Documentation Manager/Diplomatic Officer signature: ICIAN SECTION Name: Sandy Deng Prognosis: {Rehab Prognosis:88635} Condition at Discharge: {Patient Condition:62787} Rehab Potential (if transferring to Rehab): {Rehab Prognosis:54575} Recommended Labs or Other Treatments After Discharge: The individual is being admitted to a nursing facility directly from an [facility] or a unit of a [facility] that is not operated by or licensed by [facility] under section 5119.14 or 5160-3-15.1 5 The individual requires the level of services provided by a nursing facility for the condition for which he or she was treated in the hospital and, Physician Certification: I certify the above information and transfer of Sandy Deng is necessary for the continuing treatment of the diagnosis listed and that she requires {CHELO Level of Care:01249} for {greater less than:41570} 30 days. Update Admission H&P: {CHELO Changes in H&P:99795} PHYSICIAN SIGNATURE: {E-signature:73204} documented in this [facility]10-11-2024 NoteReturn [facility] via [facility] per [facility] request. Await review and response regarding ability to accept. [facility] notified. [facility]10-11-2024 [facility]10-11-2024 Procedure note* Armen Diaz MD PhD - 08/13/2024 3:02 AM EDTAssociated Order(s): EEG CONTINUOUS MONITORING Images from the original note were not included. [facility] [address] [place] [id number] CONTINUOUS LONG-TERM VIDEO EEG MONITORING REPORT Patient Name: Sandy Deng : 1960 Date of Study: 08/13/2024 Duration Recorded: 12-26 hrs EEG#: [id number] OCCUPATIONAL THERAPIST: Adam Hudson PROVIDER REQUESTING STUDY: May Wang [...] 50 g 50 g IntraVENous Once May Wang, DO [Held by provider] albuterol 108 (90 Base) MCG/ACT inhaler 2 puff 2 puff Inhalation q6h PRN Ana Rosa Carlin DO [Held by provider] aspirin EC tablet 81 mg 81 mg Oral Daily Ana Rosakosta Pros, DO [Held by provider] atorvastatin (Lipitor) tablet [...] 75 mg 75 mg Oral Daily Ana Rosakosta Pros DO dextrose 5 % infusion 100 mL/hr IntraVENous PRN Ana Rosa Carlin DO dextrose 50 % solution 12.5 g 12.5 g IntraVENous PRN Ana Rosakosta Carlin, DO [Held by provider] fluticasone (Flonase) nasal spray 2 spray 2 spray Each Nostril Daily Ana Rosa Carlin DO gabapentin (Neurontin) capsule 200 mg 200 mg Oral BID May Wang DO glucagon (human recombinant) injection 1 mg 1 mg IntraMUSCular PRN Ana Rosakosta Pros, DO glucose oral gel 15 g 15 g Oral PRN Ana Rosa Carlin DO [Held by provider] guaiFENesin (Robitussin) 100 MG/5ML liquid 200 mg 200 mg Oral q4h PRN Ana Rosakosta Pros, DO [Held by provider] heparin injection 5,000 Units 5,000 Units SubCUTAneous 2 times per day Ana Rosakosta Carlin DO 5,000 Units at 08/12/242049 Insulin Lispro (Humalog) injection 0-6 Units 0-6 Units SubCUTAneous q6h Ana Rosakosta Carlin, DO 3 Units at 08/13/24 010 ipratropium-albuterol (Duo-Neb) 0.5-2.5 mg/3 mL nebulizer solution 3 mL 3 mL Nebulization TID Ana Rosakosta Carlin DO 3 mL at 08/12/24 2019 [...] Ana Rosakosta Carlin DO 40 mg at 08/12/242316 [Held by provider] metoprolol tartrate (Lopressor) tablet 50 mg 50 mg Oral BID Ana Rosa Carlin DO mirtazapine (Remeron) tablet 7.5 mg 7.5 mg Oral Nightly May Wang DO [Held by provider] mometasone-formoterol (Dulera 200) 200-5 MCG/ACT inhaler 2 puff 2 puff Inhalation BID Ana Rosa Carlin, DO mupirocin (Bactroban) 2 % ointment 1 Application 1 Application Nasal BID Ana Rosa Carlin DO 1 Application at 08/12/242049 ondansetron ODT (Zofran-ODT) disintegrating tablet 4 mg 4 mg Oral q8h PRN Ana Rosa Carlin DO Or ondansetron (Zofran) injection 4 mg 4 mg IntraVENous q6h PRN Ana Rosa Carlin, DO QUEtiapine (SEROquel) tablet 25 mg 25 mg Oral Nightly May Wang DO 25 mg at 08/13/24 0131 sodium chloride 0.9 % infusion 250 mL/hr IntraVENous PRN April Soto MD [Held by provider] tiotropium (Spiriva Respimat) 2.5 MCG/ACT inhaler 2 puff 2 puff Inhalation DailyAna Rosa Carlin DO TECHNICAL ASPECTS: This continuous scalp EEG study with video was carried out at [facility]. Scalp electrodeswere positioned in person by an vascular technologist sonographer, following patient education, according to the 10-20 International system of electrode placement and maintained for integrity and quality of the recording. . EEG data with video was recorded continuously and digitally stored. The vascular technologist sonographer reviewed all automated detections and manual events [...] diffuse delta-theta range (1.5-7 Hz, 20-35 uV) ooynjpvfy-iz-kntoxxnabfqpgc slow wave activity was seen unresponsive to [...] EEG with video is abnormal. Continuous diffuse tcrocnqs-xw-uzkokf diffuse slowing is seen unresponsive to stimulation. REM sleep architecture is observed. At times, fronto-centrally predominant fast activity is observed reminiscent of sleep spindles. No interictal epileptiform activity nor seizures are observed. The findings are supportive of a uhrhmame-mz-zryass global encephalopathy non- specific as to etiology. Will continue video-EEG monitoring to evaluate the evolution of this encephalopathy. Jasmeet Arevalo, PhD Clinical Neurophysiologist Armen Diaz MD PhD Epilepsy Attending documented in this [facility]10-10-2024 NoteSoft restraints removed at this time. Dr. Hoang made aware. Clari Bronson RN 08/12/24 1634[facility]10-10-2024 Emergency department Note* Clari Bronson RN - 08/12/2024 4:34 PM EDT Soft restraints removed at this time. Dr. Hoang made aware. Clari Bronson RN 08/12/24 1634 * Margret Doan RN - 08/12/2024 4:33 PM EDT Report given to T3 RN. Margret Doan RN 08/12/24 1634 * Clari Bronson RN - 08/12/2024 3:16 PM EDT ICU at bedside. Clari Bronson RN 08/12/24 1517 * Lucina Galvan DO - 08/12/2024 11:35 AM EDT Emergency Department Encounter [facility] EMERGENCY DEPT Patient: Sandy Deng : 1960 [...] Lucina Galvan DO [employer] Lucina Frank DO [place] 08/12/24 1755 * Sapphire Bianchi PA-C - 08/12/2024 11:35 AM EDT Emergency Department Encounter [facility] Emergency Department Patient: Sandy Deng : 1960 [...] pneumonia, andrespiratory failure. Patient was discharged to [facility]hab 2 days ago, and today [...] daily. Continuous Glucose Sensor (Dexcom G6 Sensor) [facility] Continuous Glucose Transmitter (Dexcom G6 transmitter) [facility] estradiol (Estrace) 1 MG tablet Take 1 [...] 10 days. Insulin Disposable Pump (Omnipod 5 XfcC2T4 Intro Gen 5) kit Insulin Disposable Pump (Omnipod 5 [id number] Pods Gen 5) misc insulin glargine (Lantus) [...] Psychiatric: Mood and Affect: Mood normal. Screenings: [place] Coma Scale Best Eye Response: To pain Best Verbal Response: Confused Best Motor Response: Withdraws to pain Gregory Coma Scale Score: 10 NIH Stroke Scale 1A. Level of Consciousness: Requires Repeated Stimulation to Arouse or Responds to Pain 1B. Ask Month and Age: No Questions Right 1C. Blink Eyes & Squeeze Hands: Performs 0 Tasks 2. Best Gaze: Normal 3. Visual: No Visual Loss 4. Facial Palsy: Normal Symmetrical Movements 5A. Motor - Left Arm: Some Effort Against Supply 5B. Motor - Right Arm: Some Effort Against Supply 6A. Motor - Left Leg: Some Effort Against Supply 6B. Motor - Right Leg: Some Effort Against Supply 7. Limb Ataxia: Absent 8. Sensory Loss: [...] Abnormal Glucose 259 (*) Narrative: Performed by: [facility], [address] [place] [address] CLIA ID: [id number] POCT GLUCOSE METER UNSOLICITED RESULTS - Abnormal Glucose 252 (*) Narrative: Performed by: [facility], [address] [place] [address] CLIA ID: [id number] POCT GLUCOSE METER UNSOLICITED RESULTS - Abnormal Glucose 253 (*) Narrative: Performed by: [facility], [address] [place] [address] CLIA ID: [id number] BLOOD CULTURE - Normal Blood Culture Blood [...] ACID WITH REFLEX PREPARE RBC PRODUCT CODE C1407C91 Unit Number [id number] Unit ABO O Unit RH POS Crossmatch interpretation COMP Dispense Status Transfused Blood Expiration Date Product Blood Type 5100 Unit Volume 300 PREPARE RBC PRODUCT CODE [id number] Unit Number [id number] Unit ABO O Unit RH POS Crossmatch [...] Department Physician in the absence of a plastics engineering teacher. Please see Epiphany for interpretation of EKG. [...] 40 mg (40 mg IntraVENous Given 08/13/24 5217) albuterol 108 (90 Base) MCG/ACT inhaler 2 puff ( Inhalation Held by provider 08/12/24 1538) aspirin EC tablet 81 mg ( Oral Dose Auto Held 08/20/24 0900) busPIRone (Buspar) tablet 7.5 mg ( Oral Unheld by provider 08/13/24 012) clopidogrel (Plavix) tablet 75 mg ( Oral Dose Auto Held 08/20/24899) fluticasone (Flonase) nasal spray 2 spray ( Each Nostril Dose Auto Held 08/20/24899) gabapentin (Neurontin) capsule 200 mg ( Oral Unheld by provider 08/13/24 012) guaiFENesin (Robitussin) 100 MG/5ML liquid 200 mg [...] mg ( Oral Dose Auto Held 08/20/24 08) metoprolol tartrate (Lopressor) tablet 50 mg ( [...] tablet 25 mg (25 mg Oral Given 10/11/24 0131) levETIRAcetam (Keppra) 250 mg in sodium [...] PA-C [employer] Sapphire Bianchi PA-C 08/13/24711 Cosigned by Lucina Galvan DO at 08/13/2024 2:40 PM EDT * Yassine Montero DO - 08/12/2024 11:35 AM EDT Emergency Department Encounter Location: [facility] EMERGENCY DEPT Patient: Sandy Deng : 1960 [...] and respiratory failure. She was discharged to [facility] 2 days ago after beingadmitted [...] 445 ms QTC Interval 450 ms P [place] 76 degrees QRS [place] -24 degrees T Wave [place] 51 degrees [place] Interval 162 ms XR chest 1 view [...] status and respiratoryfailure. She was discharged to [facility] 2 days ago after being [...] 08/12/2024 5:46 PM EDT documented in this [facility]10-10-2024 History and physical note* Ana Rosa CarlinDO - 08/12/2024 3:20 PM EDT Images from [...] been recently discharged 2 days ago to [facility], and today was found altered, nasal [...] mouth 2 times daily. Historical Provider, Cholecalciferol ([facility] Vitamin D3) 25 MCG (1000 UT) chewable tablet Chew. Historical Provider, clopidogrel (Plavix) 75 MG tablet Take 1 tablet by mouth daily. Historical Provider, Continuous Glucose Sensor (DexHypejar G6 Sensor) [facility] 07/22/24 Historical Provider, Continuous Glucose Transmitter (Dexcom G6 transmitter) [facility] 07/25/24 Historical Provider, estradiol (Estrace) 1 MG [...] Espana DO Insulin Disposable Pump (Omnipod 5 [id number] Intro Gen 5) kit 12/03/23 Historical Provider, Insulin Disposable Pump (Omnipod 5 GhjX8O2 Pods Gen 5) [facility] 07/15/24 Historical Provider, insulin glargine (Lantus) 100 [...] Normal [] Scar/Lesion/Mass Inspection of teeth/lips/gums Dentition: [][place] Teeth []Dentures Lips/Gums: []Intact []Lesion Present Mucosa: [][place] []Moist []Dry Neck: External Appearance Overall Appearance: [...] the last 72 hours. Glucose: Recent Labs 08/09/24 2005 08/10/24 0035 08/10/24 0727 08/10/24 0735 08/10/24 0824 08/10/24 0911 08/10/24 1005 08/10/24 1126 08/10/24 1318 08/11/24 0600 08/12/24 1337 GLUCOSE -- 110* -- 61* -- -- -- -- -- 360* 229* POCGLU 164* -- 65* -- 103* 96 102* 109* 119* -- -- Procal: No results for input(s): PROCAL in the last 72 hours. CBC: Recent Labs 08/11/24 0608/12/24 0600 08/12/24 1337 08/12/24 1604 WBC 4.6 4.3 4.8 -- HGB 7.9* 7.2* 9.1 7.9* 7.7 HCT 28.4* 23.9* 26.5* -- PLT 102* 95* 89* -- MCV 104.4* 94.5 95.3 -- RDW 17.0* 16.6* 16.5* -- ABGs: Recent Labs 08/12/24 1337 08/12/24 1604 [id number] Nasal cannula Bi-PAP Lactic Acid: Recent Labs 08/12/24 1337 LACTATE 1.6 INR: No results for input(s): INR in the last 72 hours. Cardiac Injury Profile: Recent Labs 08/12/247 08/12/24 1604 TROPONINI 0.046* 0.046* Labs in [...] PM EDT I have personally performed a pvhs-cz-hnak diagnostic evaluation on this patient on date of jgyfgau19/10/24. History, labs, imaging studies, and electronic medical record have been reviewed by me. This note documented by the [x]charhouse worker []TONJA reflects my history, exam, and medical [...] so far today, excludingprocedures. documented in this [facility]10-10-2024 [facility] 08-10-2024 Nurse Note* Jim Rodriguez RN - 08/10/2024 2:13 PM EDT Report called to nurse Syed at [facility]. This RN verified with Dr. Espana that pt is leavingwith johnson catheter. * Rene Euceda - 08/10/2024 9:05 AM EDT Patient Name: Sandy Deng Patient : 1960 Acct: [id number] Date of Admission: 07/26/2024 Room/Bed: [facility] B Code Status: Full Code Allergies: No [...] Primary RN (First Initial, Last Name, Title): Philip BEAVER RN Incapacitated Nurse Education Completed: niya [...] - Before each treatment: Dialysis Machine No.: [id number] Machine Number: [id number] Dialyzer Lot No.: [id number] Tubing Lot Number: [id number] All Connections Secure: Yes Venous Parameters Set: Yes Arterial Parameters Set: Yes NS Bag: Yes Saline Line Double Clamped: Yes Dialyzer: Nipro Prime Volume (mL): 200 mL RO Machine Number: [id number] RO Machine Log Sheet Completed: Yes Machine Alarm Self Test: Completed, Passed (08/10/24 0945) Air Foam Detector: Tested, Proper Function, pH Reading Extracorporeal Circuit Tested for Integrity: Yes Machine Conductivity: 13.7 Manual Conductivity: 13.6 Machine Ph: 7 Manual Ph: 7.2 Bleach Test (Neg): Yes Bath Temperature: 36 C (96.8 F) Conductivity Meter Serial #: [id number] Machine Functioning Alarm Free? Yes Dialysis Bath: K+ (Potassium): 2 Ca+ (Calcium): 2.5 Na+ (Sodium): 136 HCO3 (Bicarb): 36 Bicarbonate Concentrate Lot No.: [id number] Acid Concentrate Lot No.: [id number] Chlorine Testing - Before each treatment and every 4 hours: Time On: 0901 Time Off: 1217 Treatment Goal: 2.5L Weight [...] 600 Yes pt resting, lines secure, removed 11982 08/10/24 1115 350 mL/min 970 ml/hr -160 [...] Primary RN (First Initial, Last Name, Title): Philip BEAVER RN Education Person Educated: Patient Knowledge [...] to Med Team [facility]. 0639- 1mg IM glucagon given per resident. 0647- glucose confirmation came back at 216. 0654- D5 infusion discontinued at this time. * Yenny Keller RN - 08/07/2024 8:51 PM EDT Patient Name: Sandy Deng Patient : 1960 Acct: [id number] Date of Admission: 07/26/2024 Room/Bed: [facility] B Code Status: Full Code Allergies: No [...] Right lower extremity;Left lower extremity +2 +2 08/07/247 Alert (0) Regular Nasal cannula Diminished -- Dry;Warm Soft;Nondistended Audible Right lower extremity;Left lower extremity -- -- 08/07/242044 Alert (0) Regular -- -- -- -- -- -- -- -- -- Labs Lab Results Component Value Date/Time WBC 8.0 08/07/2024105 HGB 8.1 (L) 08/07/2024105 HGB 7.1 07/31/2024604 HCT 26.7 (L) 08/07/2024105 PLT 128 (L) 08/07/2024105 NA 134 (L) 08/07/2024105 K 4.2 08/07/2024105 CL 102 08/07/2024105 CO2 31 (H) 08/07/2024105 BUN 23 (H) 08/07/2024105 CREATININE 2.07 (H) 08/07/2024105 CALCIUM 6.9 (L) 08/07/2024105 PHOS 3.7 08/07/2024105 IV Drips and Rate/Dose Safety - Before each treatment: Dialysis Machine No.: [id number] Machine Number: [id number] Dialyzer Lot No.: [id number] Tubing Lot Number: [id number] All Connections Secure: Yes Venous Parameters Set: Yes Arterial Parameters Set: Yes NS Bag: Yes Saline Line Double Clamped: Yes Dialyzer: Nipro Prime Volume (mL): 200 mL RO Machine Number: [id number] RO Machine Log Sheet Completed: Yes Machine Alarm Self Test: Completed, Passed (8323) (08/07/24 1630) Air Foam Detector: pH Reading, Proper Function, Tested Extracorporeal Circuit Tested for Integrity: Yes Machine Conductivity: 13.6 Manual Conductivity: 13.6 Machine Ph: 7 Manual Ph: 7 Bleach Test (Neg): Yes Bath Temperature: 36 C (96.8 F) Conductivity Meter Serial #: [id number] Machine Functioning Alarm Free? Yes Dialysis Bath: K+ (Potassium): 2 Ca+ (Calcium): 2.5 Na+ (Sodium): 136 HCO3 (Bicarb): 36 Bicarbonate Concentrate Lot No.: [id number] Acid Concentrate Lot No.: [id number] Chlorine Testing - Before each treatment and [...] d/t lowering bp, pt has no c/o 08/07/241914 350 mL/min 710 ml/hr -130 mmHg 100 mmHg 60 600 Yes Pt sleeping rmvd 1256. Lines secure. 08/07/24 193 350 mL/min 710 ml/hr -130 mmHg 110 mmHg 60 600 Yes Pt stable rmvd 1544. Restimg. 08/07/241944 350 mL/min 710 ml/hr -130 mmHg 110 [...] 122/57 -- -- 75 -- -- -- 08/07/241929 118/58 -- -- 76 -- -- -- 08/07/241914 104/50 -- -- 76 -- -- -- [...] Name: Sandy Deng Patient : 1960 Acct: [id number] Date of Admission: 07/26/2024 Room/Bed: T2-213/T2-213 A [...] Alert (0) X3 Regular Nasal cannula Diminished [place] Warm;Dry Soft;Flat Present Other (Comment) Other (Comment) None None None None 08/06/24 0045 Alert (0) X3 -- -- -- -- -- Soft;Flat -- -- -- -- -- -- -- Labs Lab Results Component Value Date/Time WBC 7.4 08/05/2024255 HGB 7.4 (L) 08/05/2024255 HGB 7.1 07/31/2024 06 HCT 23.6 (L) 08/05/2024255 PLT 168 08/05/2024255 NA 132 (L) 08/05/2024255 K 4.0 08/05/2024255 CL 105 08/05/2024255 CO2 26 08/05/2024255 BUN 35 (H) 08/05/2024255 CREATININE 2.56 (H) 08/05/2024255 CALCIUM 6.7 (L) 08/05/2024255 PHOS 3.6 08/05/2024255 IV Drips and Rate/Dose Safety - Before each treatment: Dialysis Machine No.: [id number] RO Machine Number: [id number] Dialyzer Lot No.: [id number] Tubing Lot Number: [id number] All Connections Secure: Yes Venous Parameters Set: Yes Arterial Parameters Set: Yes NS Bag: Yes Saline Line Double Clamped: Yes Dialyzer: Nipro Prime Volume (mL): 200 mL RO Machine Number: [id number] RO Machine Log Sheet Completed: Yes Machine Alarm Self Test: Completed, Passed (2103) (08/05/242103) Air Foam Detector: Tested, Proper Function Extracorporeal Circuit Tested for Integrity: Yes Machine Conductivity: 13.5 Manual Conductivity: 13.4 Manual Ph: 7.8 Bleach Test (Neg): Yes Bath Temperature: 36 C (96.8 F) Conductivity Meter Serial #: [id number] Machine Functioning Alarm Free? Yes Dialysis Bath: K+ (Potassium): 2 Ca+ (Calcium): 2.5 Na+ (Sodium): 136 HCO3 (Bicarb): 36 Bicarbonate Concentrate Lot No.: [id number] Acid Concentrate Lot No.: [id number] Chlorine Testing - Before each treatment and every 4 hours: Time On: 1105 Time Off: 27 Treatment Goal: avoid hypotension, keep sbp >90, can use alb up to 50g if needed Weight Height: 167.6 cm (5' 5.98) (08/03/24 1355) Weight: 60.5 kg (133 lb 6.1 oz) (08/05/24 0500) BMI (Calculated): 21.54 (08/05/24 0500) 1st check: less than 0.1 ppm [...] -- -- 72 16 100 % -- 08/05/240 (!) 128/46 -- -- 68 17 100 % -- 08/05/24 2215 153/52 -- -- 71 21 100 % -- 08/05/240 128/67 -- -- 74 21 100 % -- 08/05/24 2145 134/64 -- -- 71 21 100 % -- 08/05/240 142/63 -- -- 73 20 100 % -- 08/05/242125 (!) 142/36 -- -- 72 20 100 % -- 08/05/245 125/51 -- -- 71 18 100 % -- 08/05/242103 -- -- -- 74 21 100 % -- 08/05/24 2100 122/53 -- -- 70 20 100 % -- 08/05/242049 120/52 36.4 C (97.6 F) -- 71 20 100 % -- 08/05/24 2000 127/55 36.8 C (98.2 F) Temporal 67 [...] blanchable erythema. Prevention Measures in place, including: [place] sheet with pillows/wedges, Foam heel protectors (changed), Heels elevated off bed on pillows, Sacral foam (in place, intact), Zinc/Moisture Barrier ointment, Waffle chair cushion (in place). Skin Care precaution order set in place. Dietitian consult in place. PT/OT consult in place. D/W nursing staff. Will continue to follow pt. Please Voicera for any questions or concerns. Ermelinda Martinez, RN, BSN, CWCN * Deborah Carbajal RN - 08/03/2024 11:24 AM EDT Patient Name: Sandy Deng Patient : 1960 Acct: [id number] Date of Admission: 07/26/2024 Room/Bed: T2-213/T2-213 A [...] - Before each treatment: Dialysis Machine No.: [id number] RO Machine Number: [id number] All Connections Secure: Yes Venous Parameters Set: Yes Arterial Parameters Set: Yes NS Bag: Yes Saline Line Double Clamped: Yes Dialyzer: Nipro Prime Volume (mL): 200 mL RO Machine Number: [id number] RO Machine Log Sheet Completed: Yes Machine Alarm Self Test: Completed, Passed (08/03/24 1051) Air Foam Detector: Tested, Proper Function, pH Reading Extracorporeal Circuit Tested for Integrity: Yes Machine Conductivity: 13.7 Manual Conductivity: 13.6 Manual Ph: 7 Bleach Test (Neg): Yes Bath Temperature: 36 C (96.8 F) Conductivity Meter Serial #: [id number] Machine Functioning Alarm Free? Yes Dialysis Bath: [...] -120 mmHg 140 mmHg 80 600 Yes case work aide RN at bedside to speak jacobo pt 08/03/24 1400 350 mL/min 500 ml/hr [...] and report given to Primary RN at 4024. Primary RN (First Initial, Last Name, Title): [...] 07/29/2024 4:12 PM EDT [facility] A, Dr. Amezcua in to speak with [...] paused d/t access line clotting at approximately [phone]. Trouble shooting attempted. Cath flow ordered and given at 0646. documented in this [facility]10-08-2024 History of Present illness Narrative* Saroj Gaffney MD - 08/10/2024 12:17 PM EDT Images from the original note were not included. Nephrology Progress Note Patient: Sandy Deng Room number: [id number] Date of Admit: 07/26/2024 LOS: 15 days Admitting physician: Ino Conte MD Referring physician: Fly De La Garza DO Outpatient Deputy Head: Christy Huerta DO Assessment/Plan: 63 year old [...] last (04/26) Cr 2.4 eGFR 20, 24 ufbrkoqzz=6888 mg. -Suspected ATN in setting of infection/HD [...] mg IV lasix Anemia: Hgb 7.8 Access: [facility] TD 07/29 Recommendations: -HD today, continue TTS for now -Can continue lasix on HD off days to assist volume removal -Continue strict I/Os and daily renal function panel to monitor for recovery -Await repeat complements Thank you for this consult, we will continue to follow. Please call or page if any questions [facility] Pager: [phone] Office: [phone]. Office Subjective: Interval history/events: Seen and evaluated [...] with clean dressing intact LABS: Recent Labs 08/08/241608/09/245 08/10/24 003 WBC 7.6 7.7 6.0 HGB 8.7* 8.1* 7.8* HCT 28.9* 26.6* 26.2* MCV 95.7 94.7 95.6 PLT 118* 108* 95* No results found for: IRON, TIBC, FERRITIN No results found for: [id number], FOLATE Recent Labs 08/08/24 0017 08/09/24 0035 [...] PHOS 4.5 08/10/2024 No components found for: [id number] Diagnostic Studies: CXR 08/08 Findings: Right IJ [...] Type 1 diabetes. Initially patient presented to [facility] on 07/23 with acute respiratory distress [...] the nightstand. Pt was then transferred to [facility]. Initial infectious workup returned with CTX-M Pseudomonas [...] (04/26) Cr 2.4 eGFR 20, 24 hr eguzqfp=9370 mg. - On admit, (07/26) Cr 4.56, [...] evaluated at bedside; recommend continuation of acute COIN MACHINE ASSEMBLER diet - Monitor adequacy of PO for need to initiate Magic Cup - Document % meal intakes under I/O flowsheet - Monitor nutrition status, intakes, wt trends, labs, and fluid balance Acute on chronic anemia - received 1 unit of blood in morning (08/06) - Hgb 7.8 10/8 AM - Remains clinically stable Plan: - [...] and C4 complement Disposition: Approved 08/09-08/16 to [facility]. Transport arranged for today at 2 pm [...] case she was type I. -DC to [facility] today. 7AM-5PM: contact resident on [facility] Med A (find by hovering over attending's name on left side of patient's chart) 5PM-7AM: contact [address] - 08/09/2024 4:36 PM EDT Nutrition Assessment Type and Reason for Visit: Reassess Nutrition Recommendations/Plan: Continue current diet per COIN MACHINE ASSEMBLER. Per MNT, will discontinue Ensure d/t [...] mass loss Fluid Accumulation: Mild Extremities, Generalized Wall Cleaner Strength: Not Performed Nutrition Assessment: Pt PMH of COPD, diabetic neuropathy, hx of NSTEMI, stage 4 CKD (on HD TTS), and Type 1 diabetes. Initially patient presented to [facility] on 07/23 with acute respiratory distress [...] the nightstand. Pt was then transferred to [facility]. Initial infectious workup returned with CTX-M Pseudomonas and S aureus identified on pneumonia PCR. Patient went into septic shock, requiring pressors, now resolved. Patient no longer on antibiotics. Patient saturating well on 3-4L NC. Home O2 requirement of 3L. Pt first advanced to PO diet 08/01; advanced to Regular/nectar thick per COIN MACHINE ASSEMBLER recs today. Pt was sleepingat time of RD assessment and did not wake to name call. No trays at bedside to assess. Estimated Daily Nutrient Needs: Energy Requirements Based On: Kcal/kg Weight Used for Energy Requirements: [place] Weight for Energy Calculation (kg): 59 kg Total Energy Requirements (kcals/day): 25-30 kcals/kg = 6543-9529 kcals/day Weight Used for Protein Requirements: [place] Weight in Kg Used for Protein Requirements: [...] Nutrition Therapies: Adult diet Regular; Mildly Thick ([place]) Current Oral Intake Average Meal Intake: 76-100% (per flowsheet) Average Supplements Intake: None Ordered Anthropometric Measures: Height: 167.6 cm (5' 5.98) Current Body Weight: 57.2 kg (126 lb) (08/07) Weight Source: Bed Scale Admission Body Weight: 48 kg (105 lb 13.1 oz) [place] Body Weight (lbs) (Calculated): 130 lbs [place] Body Weight (Kg) (Calculated): 59 kg % [place] Body Weight (Calculated): 105.1 % BMI (kg/m2) [...] to determine Sada Fernandez RD, LD Contact: [phone] * Saroj Gaffney MD - 08/09/2024 1:34 PM EDT Images from the original note were not included. Nephrology Progress Note Patient: Sandy Deng Room number: [id number] Date of Admit: 07/26/2024 LOS: 14 days Admitting physician: Ino Conte MD Referring physician: Fly De La Garza DO Outpatient Deputy Head: Christy Huerta DO Assessment/Plan: 63 year old [...] last (04/26) Cr 2.4 eGFR , 24 zczspbikv=9429 mg. -Suspected ATN in setting of infection/HD [...] Please call or page if any questions [facility] Pager: [phone] Office: [phone]. Office Subjective: Interval history/events: Seen at bedside [...] IRON, TIBC, FERRITIN No results found for: [id number], FOLATE Recent Labs 08/07/2410508/08/241608/09/243408/09/24612 NA 134* 134* 136 -- K 4.2 [...] PHOS 4.1 08/09/2024 No components found for: [id number] Diagnostic Studies: CXR 08/08 Findings: Right IJ [...] not included. Speech-Language Pathology SPEECH LANGUAGE PATHOLOGY [facility] Dysphagia Treatment Note Patient Name: Sandy Deng Evaluation Date: 08/09/2024 Date of : 1960 Admission Date: 07/26/2024 4:17 PM Age: 63 y.o. Room/Bed: [facility] B Subjective Patient was able to awaken but appeared somnolent. Family and RN reported patient with decreased POintake with current diet restrictions. Current Diet: Dietary Orders (From admission, onward) Start Ordered 08/04/24 1610 Adult diet Dysphagia - Pureed; Mildly Thick ([place]) Diet effective now Comments: Medications crushed and placed in pureed foods. Question Answer Comment Diet type Dysphagia - Pureed Fluid consistency Mildly Thick ([place]) 08/04/24 1611 08/03/24 1639 Supplement:PM Snack, HS [...] for dietadvancement. Plan & Recommendations Continue acute COIN MACHINE ASSEMBLER therapy per initial plan of care [...] Start: 08/04/24 Expected End: 08/18/24 Therapy Time COIN MACHINE ASSEMBLER Individual Minutes Time In: 1125 Time Out: 1135 Minutes: 10 Shanti Bianchi MA, CCC/COIN MACHINE ASSEMBLER * Amy Dorado, FLIGHT NURSE - 08/09/2024 8:47 AM EDT Images from the original note were not included. PHYSICAL THERAPY [facility] Treatment Note Name/MRN: Sandy Dneg ([id number]) Date of : 1960 Age: 63 y.o. Room/Bed: [facility] B Discharge Recommendation: IP Rehab Equipment Needed: [...] SBA for short periods. Standing with this FLIGHT NURSE directly in front of pt, postural sway, [...] Minutes: 26 Minutes (tp; fa) Amy Dorado, FLIGHT NURSE * Khai Espnaa, DO - 08/09/2024 8:03 AM EDT Med Team Progress Note Sandy Deng : 1960(63 y.o.) Date: August 09, 2024 Med Team: Frank Attending: Dr. De La Garza Chief Complaint: Brain Bleed Subjective: Sandy Deng is a 63 yo F with a PMH of COPD, diabetic neuropathy, hx of NSTEMI, stage 4 CKD (on HD TTS), and Type 1 diabetes. Initially patient presented to [facility] on 07/23 with acute respiratory distress [...] the nightstand. Pt was then transferred to [facility]. Initial infectious workup returned with CTX-M Pseudomonas [...] (04/26) Cr 2.4 eGFR 20, 24 hr rvgdtjd=7115 mg. - On admit, (07/26) Cr 4.56, [...] evaluated at bedside; recommend continuation of acute COIN MACHINE ASSEMBLER therapy - Diet order of Regular [...] monitor for now. 7AM-5PM: contact resident on [facility] Med A (find by hovering over attending's name on left side of patient's chart) 5PM-7AM: contact AI3 res * Jamey Muro, OT - 08/08/2024 10:44 AM EDT Images from the original note were not included. OCCUPATIONAL THERAPY [facility] Treatment Note Name/MRN: Sandy Deng ([id number]) Date of : 1960 Age: 63 y.o. [...] original note were not included. PHYSICAL THERAPY [facility] Treatment Note Name/MRN: Snady Deng ([id number]) Date of : 1960 Age: 63 y.o. [...] Type 1 diabetes. Initially patient presented to [facility] on 07/23 with acute respiratory distress [...] the nightstand. Pt was then transferred to [facility]. Initial infectious workup returned with CTX-M Pseudomonas [...] (04/26) Cr 2.4 eGFR 20, 24 hr fpoxpyx=4000 mg. - On admit, (07/26) Cr 4.56, [...] evaluated at bedside; recommend continuation of acute COIN MACHINE ASSEMBLER therapy - Diet order on pureed [...] patient's chart) 5PM-7AM: contact AI3 res * Jose Carlos Medrano MD - 08/07/2024 11:52 AM EDT Images from the original note were not included. NEPHROLOGY SOAP NOTE Visit date: 08/07/24, 11:52 AM Patient: Sandy Deng Room number: [id number] Date of Admit: 07/26/2024 LOS: 12 days Referring physician: Ino Conte MD Outpatient Deputy Head: Christy Huerta DO ASSESSMENT/PLAN: UMA on CKD 4 - Cr has been 2.4-2.8, last (04/26) Cr 2.4 eGFR 20, 24 hr rtclyda=5178 mg. - On admit, (07/26) Cr 4.56, [...] initial consultation. Interval history reviewed: transferred to [facility] Patient reports breathing comfortably Appetite has [...] tremor or myoclonus DATA: LABS: Recent Labs 08/05/2425508/06/2420208/06/24 0957 08/07/24105 WBC 7.4 6.5 -- 8.0 HGB 7.4* 6.6* 7.9* 8.1* HCT 23.6* 21.6* 25.2* 26.7* MCV 90.4 93.1 -- 94.3 PLT 168 120* -- 128* Recent Labs 08/05/2425508/06/2420208/07/24105 NA 132* 133* 134* K 4.0 3.1* [...] IRON, TIBC, FERRITIN No results found for: [id number], FOLATE No results found for: COLORU, CLARITYU, [...] No components found for: LABA1C Recent Labs 10/03/24 0256 LACTATE 0.5* No results found for: [...] LABFUNG IMAGING: POCT glucose meter Performed by: [facility], [address] [place] [address] CLIA ID: [id number] Signed: Jose Carlos Medrano MD Nephrology [facility] ([facility]) Pager: [phone] Office Office * Khai Espana, DO - [...] Type 1 diabetes. Initially patient presented to [facility] on 07/23 with acute respiratory distress [...] the nightstand. Pt was then transferred to [facility]. Initial infectious workup returned with CTX-M Pseudomonas [...] (04/26) Cr 2.4 eGFR 20, 24 hr hvybkxc=2766 mg. - On admit, (07/26) Cr 4.56, [...] evaluated at bedside; recommend continuation of acute COIN MACHINE ASSEMBLER therapy - Diet order on pureed [...] chart) 5PM-7AM: contact AI3 res * Elle Israel, FLIGHT NURSE - 08/06/2024 2:28 PM EDT Images from the original note were not included. PHYSICAL THERAPY [facility] Treatment Note Name/MRN: Sandy Deng ([id number]) Date of : 1960 Age: 63 y.o. [...] Timed Code Treatment Minutes: 11 Minutes (FA) FLIGHT NURSE wore PPE in compliance with hospital guidelines and regulation when treating this patient. Elle Israel, FLIGHT NURSE * Sandy MarieUriel Bangura, LI - 08/06/2024 11:26 AM EDT Images from the original note were not included. OCCUPATIONAL THERAPY [facility] Treatment Note Name/MRN: Sandy Deng ([id number]) Date of : 1960 Age: 63 y.o. [...] not included. Speech-Language Pathology SPEECH LANGUAGE PATHOLOGY [facility] Dysphagia Treatment Note Patient Name: Sandy Deng Evaluation Date: 08/06/2024 Date of : 1960 Admission Date: 07/26/2024 4:17 PM Age: 63 y.o. Room/Bed: [facility]323/3-323 A Subjective Patient was awake and cooperative. Current Diet: Dietary Orders (From admission, onward) Start Ordered 08/04/24 1610 Adult diet Dysphagia - Pureed; Mildly Thick ([place]) Diet effective now Comments: Medications crushed and placed in pureed foods. Question Answer Comment Diet type Dysphagia - Pureed Fluid consistency Mildly Thick ([place]) 08/04/24 1611 08/03/24 1639 Supplement:PM Snack, HS [...] wheat. Plan & Recommendations Plan: Continue acute COIN MACHINE ASSEMBLER therapy per initial plan of care [...] x 16. Plan & Recommendations Continue acute COIN MACHINE ASSEMBLER therapy per initial plan of care [...] Start: 08/04/24 Expected End: 08/18/24 Therapy Time COIN MACHINE ASSEMBLER Individual Minutes Time In: 1000 Time Out: 1010 Minutes: 10 Shanti Bianchi MA, CCC/COIN MACHINE ASSEMBLER * GUILLERMO Dorantes - 08/06/2024 8:02 AM EDT Images from the original note were not included. OCCUPATIONAL THERAPY [facility] Name/MRN: Sandy Deng ([id number]) Date: 08/06/2024 Hold OT this a.m.; HgB 6.6 with order to transfuse. Will follow and treat as appropriate. Sandy BanguraGUILLERMO * Khai Espana, - 08/06/2024 7:20 AM EDT Med Team Progress Note Sandy Deng : 1960(63 y.o.) Date: August 06, 2024 Med Team: A Attending: Dr. De La Garza Chief Complaint: Brain bleed Subjective: Sandy Deng is a 63 yo F with a PMH of COPD, diabetic neuropathy, hx of NSTEMI, stage 4 CKD (on HD TTS), and Type 1 diabetes. Initially patient presented to [facility] on 07/23 with acute respiratory distress [...] the nightstand. Pt was then transferred to [facility]. Initial infectious workup returned with CTX-M Pseudomonas [...] evaluated at bedside; recommend continuation of acute COIN MACHINE ASSEMBLER therapy - Diet order on pureed [...] original note were not included. OCCUPATIONAL THERAPY [facility] Treatment Note Name/MRN: Sandy Deng ([id number]) Date of : 1960 Age: 63 y.o. [...] assist due to retro-grade balance Device(s) used: [facility] Cognition - Arousal/alertness: appropriate responses to stimuli [...] tested positive for COVID on 07/24. At [place] [facility] ICU she had worsening hypoxia and was placed on NIV but failed. Was ultimately intubated. Noted to be hypotensive and started on levophed. Ptwas transferred to [facility] for higher level of care. On arrival [...] Normal [] Scar/Lesion/Mass Inspection of teeth/lips/gums Dentition: [][place] Teeth []Dentures Lips/Gums: [x]Intact []Lesion Present Mucosa: [x][place] [x]Moist []Dry Neck: External Appearance Overall Appearance: [...] within last 24 hours- BMP: Recent Labs 08/03/242108/04/2431408/05/24255 NA 137 134* 132* [...] last 72 hours. CBC: Recent Labs 08/03/24 00208/04/2431408/05/24255 WBC 10.8* 8.5 7.4 HGB 8.5* 8.3* 7.4* HCT 28.6* 26.5* 23.6* PLT 210 178 168 MCV 92.3 91.1 90.4 RDW 18.1* 17.4* 17.7* ABGs: No results for input(s): PHART, GDV3RVJ, PO2ART, CCM0QHG, SO2ART, E7NKIEFM in thelast 72 hours. Lactic Acid: Recent [...] evaluated at bedside; recommend continuation of acute COIN MACHINE ASSEMBLER therapy On Pureed solids and Mildly [...] original note were not included. PHYSICAL THERAPY [facility] Treatment Note Name/MRN: Sandy Deng ([id number]) Date of : 1960 Age: 63 y.o. Room/Bed: T2-213/T2213 A Discharge Recommendation: Continue to assess pending [...] Minutes: (1 FA, 1 TP) Jennifer Saldaña, SPT * Svitlana Albarran CCC-COIN MACHINE ASSEMBLER - 08/05/2024 9:22 AM EDT Images from the original note were not included. Speech-Language Pathology SPEECH LANGUAGE PATHOLOGY [facility] Dysphagia Treatment Note Patient Name: Sandy [...] in room to administer medications. Spoke with BO Yeboah who cleared pt for treatment. Current Diet: Dietary Orders (From admission, onward) Start Ordered 08/04/24 1610 Adult diet Dysphagia - Pureed; Mildly Thick ([place]) Diet effective now Comments: Medications crushed and placed in pureed foods. Question Answer Comment Diet type Dysphagia - Pureed Fluid consistency Mildly Thick ([place]) 08/04/24 1611 08/03/24 1639 Supplement:PM Snack, HS [...] wheat. Plan & Recommendations Plan: Continue acute COIN MACHINE ASSEMBLER therapy per initial plan of care [...] Start: 08/04/24 Expected End: 08/18/24 Therapy Time COIN MACHINE ASSEMBLER Individual Minutes Time In: 08 Time Out: 909 Minutes: 17 Svitlana Albarran CCC-COIN MACHINE ASSEMBLER * Jose Carlos Medrano MD - 08/05/2024 8:09 AM EDT Images from the original note were not included. NEPHROLOGY SOAP NOTE Visit date: 08/05/24, 8:10 AM Patient: Sandy Deng Room number: T2-213/T2-213 A Date of Admit: 07/26/2024 LOS: 10 days Referring physician: Saroj Sadler MD Outpatient Deputy Head: Christy Huerta DO ASSESSMENT/PLAN: UMA on CKD 4 - Cr has been 2.4-2.8, last (04/26) Cr 2.4 eGFR 20, 24 hr ecbxvhi=5440 mg. - On admit, (07/26) Cr 4.56, [...] 178 168 Recent Labs 08/03/24 0022 08/04/245 08/05/24 0256 NA 137 134* 132* K [...] IRON, TIBC, FERRITIN No results found for: [id number], FOLATE No results found for: COLORU, CLARITYU, [...] EDT Signed: Jose Carlos Medrano MD Nephrology [facility] ([facility]) Pager: [phone] Office Office * Janell Booker MD - [...] not included. Speech-Language Pathology SPEECH LANGUAGE PATHOLOGY [facility] Modified Barium Swallow Study Patient Name: Sandy Deng Evaluation Date: 08/04/2024 Date of : 1960 Admission Date: 07/26/2024 4:17 PM Age: 63 y.o. Room/Bed: T2-213/T2-213 A IMPRESSION: The patient presents with moderate [...] aspiration. Pt would benefit from skilled acute COIN MACHINE ASSEMBLER services to initiate oropharyngeal exercises, ensure [...] Diagnosis Date COPD (chronic obstructive pulmonary disease) ([facility]) Diabetic neuropathy ([facility]) Hyperlipidemia Myocardial infarct ([facility]) Stage 4 chronic kidney disease ([facility]) Type 1 diabetes ([facility]) Past Surgical History: Past Surgical History: Procedure Laterality Date CORONARY ANGIOPLASTY WITH STENT PLACEMENT CORONARY ANGIOPLASTY WITH STENT PLACEMENT Admission Diagnosis: Patient Active Problem List Diagnosis Date Noted SDH (subdural hematoma) ([facility]) 07/26/2024 COPD (chronic obstructive pulmonary disease) ([facility]) 07/26/2024 Type 1 diabetes mellitus with kidney complication ([facility]) 07/26/2024 Myocardial infarction ([facility]) 07/26/2024 Hyperlipidemia 07/26/2024 Diabetic neuropathy associated with type 1 diabetes mellitus ([facility]) 07/26/2024 Stage 4 chronic kidney disease ([facility]) 07/26/2024 Pain: unable to answer but no evidence of same Reason for current admission: Found to have a subdural hematoma. She reportedly had a fall 1 month ago from bed. states she hit her head on the nightstand. She is on Plavix and ASA for a stent placed 7 years ago. Pt tested positive for COVID on 07/24. At [place] [facility] ICU she had worsening hypoxiaand was placed on NIV but failed. Was ultimately intubated. Noted to be hypotensive and started on levophed. Pt was transferred to [facility] for higher level of care. On arrival [...] Start: 08/04/24 Expected End: 08/18/24 Therapy Time COIN MACHINE ASSEMBLER Individual Minutes Time In: 1350 Time Out: 1410 Minutes: 20 Shanti Bianchi MA, CCC/COIN MACHINE ASSEMBLER * May Wang, DO - 08/04/2024 11:22 [...] tested positive for COVID on 07/24. At [place] ICU she had worsening hypoxia and was placed on NIV but failed. Was ultimately intubated. Noted to be hypotensive and started on levophed. Ptwas transferred to [facility] for higher level of care. On arrival [...] Normal [] Scar/Lesion/Mass Inspection of teeth/lips/gums Dentition: [][place] Teeth []Dentures Lips/Gums: []Intact []Lesion Present Mucosa: [][place] []Moist []Dry Neck: External Appearance Overall Appearance: [...] 17.4* ABGs: No results for input(s): PHART, GEX0RIN, PO2ART, UHJ7WON, SO2ART, N2FSOXNM in thelast 72 hours. Lactic Acid: No [...] and Plan: Principal Problem: SDH (subdural hematoma) ([facility]) Active Problems: COPD (chronic obstructive pulmonary disease) ([facility]) Type 1 diabetes mellitus with kidney complication ([facility]) Hyperlipidemia Diabetic neuropathy associated with type 1 diabetes mellitus ([facility]) Assessment: Acute on Chronic Hypoxemic, Hypercapnic Resp [...] DVT Prophylaxis: Heparin subcutaneous Disposition: Transfer to [facility] I performed a history and physical [...] and plan. Saroj Sadler MD * Svitlana Albarran [facility]COIN MACHINE ASSEMBLER - 08/04/2024 9:23 AM EDT Images from the original note were not included. Speech-Language Pathology SPEECH LANGUAGE PATHOLOGY [facility] Dysphagia Treatment Note Patient Name: Sandy [...] liquids. Plan & Recommendations Plan: Continue acute COIN MACHINE ASSEMBLER therapy per initial plan of care [...] Start: 08/04/24 Expected End: 08/18/24 Therapy Time COIN MACHINE ASSEMBLER Individual Minutes Time In: 854 Time Out: 904 Minutes: 10 Svitlana Albarran CCC-COIN MACHINE ASSEMBLER * Shanti García, RD - 08/03/2024 4:36 PM EDT Nutrition [...] mass loss Fluid Accumulation: Mild Extremities, Generalized Wall Cleaner Strength: Not Performed Nutrition Assessment: Pt is a 63-year-old female with multiple medical co-morbidities including Type I DM (on insulin pump), COPD on 4L home O2, CKD4, on ASA/Plavix who initially presented to [facility] on 07/23 withacute respiratory distress and acute delirium. 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 She was found to be hypoxic and hypercarbic, and COVID positive. She continued to be delirious and did not tolerate NIV, and required intubation 07/27/24. A CT head was done to evaluate her altered mental status, and she was found to have a small acute right sided SDH vs. epidural hematoma. For this reason, [facility] consulted for further neurologic management and she [...] act but not able to answer questinos. COIN MACHINE ASSEMBLER evaluated pt today 08/03/24 and recommends a soft and bitesized diet; pt is on same. Estimated Daily Nutrient Needs: Energy Requirements Based On: Kcal/kg Weight Used for Energy Requirements: [place] Weight for Energy Calculation (kg): 59 kg Total Energy Requirements (kcals/day): 25-30 kcals/kg = 7208-1969 kcals/day Weight Used for Protein Requirements: [place] Weight in Kg Used for Protein Requirements: [...] Weight: 48 kg (105 lb 13.1 oz) [place] Body Weight (lbs) (Calculated): 130 lbs [place] Body Weight (Kg) (Calculated): 59 kg % [place] Body Weight (Calculated): 105.1 % BMI (kg/m2) [...] Planning: Too soon to determine Shanti García RD,LD,[facility] Contact: *[phone] or [employer] Chat * Jose Carlos Medrano MD - 08/03/2024 1:32 PM EDT Images from the original note were not included. NEPHROLOGY SOAP NOTE Visit date: 08/03/24, 1:32 PM Patient: Sandy Deng Room number: T2-213/T2-213 A Date of Admit: 07/26/2024 LOS: 8 days Referring physician: Fly De La Garza DO Outpatient Deputy Head: Chrsity Huerta DO ASSESSMENT/PLAN: Non oliguric UMA on CKD 4 - Cr has been 2.4-2.8, last (04/26) Cr 2.4 eGFR 20, 24 hr shcdgpl=9530 mg. - On admit, (07/26) Cr 4.56, [...] IRON, TIBC, FERRITIN No results found for: [id number], FOLATE No results found for: COLORU, CLARITYU, [...] LABFUNG IMAGING: POCT glucose meter Performed by: [facility], [address] [place] [address] CLIA ID: [id number] POCT glucose meter Performed by: [facility], [address] [place] [id number] CLIA ID: [id number] POCT glucose meter Performed by: [facility], [address] [place] [address] CLIA ID: [id number] Signed: Jose Carlos Medrano MD Nephrology [facility] ([facility]) Pager: [phone] Office Office * RENATO Kern - 08/03/2024 9:46 AM EDT Images from the original note were not included. Speech-Language Pathology SPEECH LANGUAGE PATHOLOGY [facility] Dysphagia Treatment Note Patient Name: Sandy Deng Evaluation Date: 08/03/2024 Date of : 1960 Admission Date: 07/26/2024 4:17 PM Age: 63 y.o. Room/Bed: T2-213/T2-213 A Subjective Patient lethargic and cooperative. Seen [...] Dysphagia - Soft and Bite Sized 08/02/24 112 Aspiration Precautions: - Upright positioning for all [...] per dysphagia plan of care. Continue acute COIN MACHINE ASSEMBLER therapy per initial plan of care [...] Start: 08/01/24 Expected End: 08/15/24 Therapy Time COIN MACHINE ASSEMBLER Individual Minutes Time In: 922 Time Out: 934 Minutes: 12 RENATO Kern * Jennifer Saldaña - 08/03/2024 9:36 AM EDT Images from the original note were not included. PHYSICAL THERAPY [facility] Initial Evaluation Name/MRN: Sandy Deng ([id number]) Evaluation Date: 08/03/2024 Date of : 1960 [...] Diagnosis Date COPD (chronic obstructive pulmonary disease) ([facility]) Diabetic neuropathy ([facility]) Hyperlipidemia Myocardial infarct ([facility]) Stage 4 chronic kidney disease ([facility]) Type 1 diabetes ([facility]) Past Surgical History: Past Surgical History: Procedure Laterality Date CORONARY ANGIOPLASTY WITH STENT PLACEMENT CORONARY ANGIOPLASTY WITH STENT PLACEMENT Admission Diagnosis: Patient Active Problem List Diagnosis Date Noted SDH (subdural hematoma) ([facility]) 07/26/2024 COPD (chronic obstructive pulmonary disease) ([facility]) 07/26/2024 Type 1 diabetes mellitus with kidney complication ([facility]) 07/26/2024 Myocardial infarction ([facility]) 07/26/2024 Hyperlipidemia 07/26/2024 Diabetic neuropathy associated with type 1 diabetes mellitus ([facility]) 07/26/2024 Stage 4 chronic kidney disease ([facility]) 07/26/2024 Medical Precautions: No active isolations Proper PPE donned/doffed in accordance with facility standards. Fall Risk: [place] Fall Risk Score: 35 (Medium Risk) Precautions/Restrictions: Lines/Drains/Airways: JEAN-PAUL, elizabeth, CHELO 2L (pt on 3L at home per [...] Responsibilities: Independent Receives Help From: Spouse Active Early Morning Babysitter: N/A Prior Level of Function ADL Assistance: [...] Raw Score (No Stairs) : 10 [facility] Score: Transferred to chair/commode Plan Pt [...] of Care supervision is transferred to a [facility] Physical Therapist. Goals and/or treatment plan was established in collaboration with patient/family/other representatives. * May Wang DO - 08/03/2024 7:05 AM EDT ICU [...] tested positive for COVID on 07/24. At [place] ICU she had worsening hypoxia and was placed on NIV but failed. Was ultimately intubated. Noted to be hypotensive and started on levophed. Pt was transferred to [facility] for higher level of care. On arrival [...] Pulse 65 (08/03/24 0600) Resp 25 (08/03/24 0600) SpO2 100 % (08/03/24 0600) Weight 62 kg (136 lb 11 oz) [...] Normal [] Scar/Lesion/Mass Inspection of teeth/lips/gums Dentition: [x][place] Teeth []Dentures Lips/Gums: [x]Intact []Lesion Present Mucosa: [x][place] [x]Moist []Dry Neck: External Appearance Overall Appearance: [...] 18.1* ABGs: No results for input(s): PHART, JRB9ASH, PO2ART, UDS8FXW, SO2ART, U3AWPKTK in the last 72 hours. Labs in [...] and Plan: Principal Problem: SDH (subdural hematoma) ([facility]) Active Problems: COPD (chronic obstructive pulmonary [...] for soft and bite sized diet per COIN MACHINE ASSEMBLER. Has not expressed desire to eat. [...] original note were not included. PHYSICAL THERAPY [facility] Name/MRN: Sandy Deng ([id number]) Date: 08/02/2024 Attempt Note. PT Eval and Treat order received. Per RN, pt eating and fatigued following OT. Pt states she reallytired and observed to have difficulty keeping eyes open. Pt educated on benefits of getting up in chair. Pt still would like to rest. Will continue to follow and re-attempt as able. Jennifer aSldaña, SPT * [place] Warner RCP - 08/02/2024 12:05 PM EDT [facility] Respiratory Care Department Progress Note As [...] not included. Speech-Language Pathology SPEECH LANGUAGE PATHOLOGY [facility] Dysphagia Treatment Note Patient Name: Sandy Deng Evaluation Date: 08/02/2024 Date of : 1960 Admission Date: 07/26/2024 4:17 PM Age: 63 y.o. Room/Bed: T2-213/T2-213 A Subjective Patient alert, confused and cooperative. Seen upright in bed. Answers some basic questions with clear vocal quality. Follows some basic commands. Visitors at bedside - spouse. Spoke with BO Braga who cleared pt for treatment. Current Diet: Dietary Orders (From admission, onward) Start Ordered 08/01/24951 Adult diet Dysphagia - Pureed; Isolation Tray (Disposables) Diet effective now Question Answer Comment Diet type Dysphagia - Pureed Tray Modifier: Isolation Tray (Disposables) 08/01/24 09 Aspiration Precautions: - Upright positioning for all [...] per dysphagia plan of care. Continue acute COIN MACHINE ASSEMBLER therapy per initial plan of care [...] Start: 08/01/24 Expected End: 08/15/24 Therapy Time COIN MACHINE ASSEMBLER Individual Minutes Time In: 1057 Time Out: 1106 Minutes: 9 RENATO Kern * Jamey Muro, OT - 08/02/2024 11:09 AM EDT Images from the original note were not included. OCCUPATIONAL THERAPY [facility] Initial Evaluation Name/MRN: Sandy Deng ([id number]) Evaluation Date: 08/02/2024 Date of : 1960 Admission Date: 07/26/2024 4:17 PM Age: 63 y.o. Room/Bed: T2213/T2213 A Discharge Recommendation: IP Rehab (If family [...] List Diagnosis Date Noted SDH (subdural hematoma) ([facility]) 07/26/2024 COPD (chronic obstructive pulmonary disease) ([facility]) 07/26/2024 Type 1 diabetes mellitus with kidney complication ([facility]) 07/26/2024 Myocardial infarction ([facility]) 07/26/2024 Hyperlipidemia 07/26/2024 Diabetic neuropathy associated with type 1 diabetes mellitus ([facility]) 07/26/2024 Stage 4 chronic kidney disease ([facility]) 07/26/2024 Medical Precautions: No active isolations Proper [...] Responsibilities: Independent Receives Help From: Spouse Active Early Morning Babysitter: N/A Prior Level of Function ADL Assistance: [...] of Care supervision is transferred to a [facility] Occupational Therapist. Goals and/or treatment plan was established in collaboration with patient/family/other representatives. * Karyn Jones MD - 08/02/2024 10:06 AM EDT Images from the original note were not included. Nephrology Progress Note Patient: Sandy Deng Room number: T2-213/T2-213 A Date of Admit: 07/26/2024 LOS: 7 days Referring physician: Saroj Sadler MD Outpatient Deputy Head: Christy Huerta Assessment/Plan: Mrs. Sandy Deng is a 63 year old female with PMH of CKD 4, DM type 1, HTN, CAD, COPD (3L Y0nkyqwalc), initially presenting with resp distress and delirium, Covid positive. She was eventuallyintubated. CT head showed a small right SDH. Consulted for UMA on CKD 4 - follows with Dr Wilson ([place]). On review of available labs, Cr has been 2.4-2.8, last (04/26) Cr 2.4 eGFR 20, 24 hr fiixtbl=6086 mg. On admit, (07/26) Cr 4.56, CRRT initiation for severe acidosis in setting of hemodynamic instability 07/26-08/01. Renal plan: Non oliguric UMA on CKD 4 - Cr has been 2.4-2.8, last (04/26) Cr 2.4 eGFR 20, 24 hr evjdrxu=4481 mg. - On admit, (07/26) Cr 4.56, [...] will start service tomorrow. Karyn Jones MD [facility] ([place]) Pager [phone] Office phone: [phone] Office fax: [phone] 08/02/2024 Subjective Noted weekend events, episode of [...] Catheter-Output (mL): 5 mL [REMOVED] Urethral Catheter Afsxsnor-mkv-Ecbqww (mL): 0 mL Urethral Catheter Straight-tip;Temperature probe-Output [...] and support devices as above. * Simone Momin DO - 08/02/2024 5:49 AM EDT ICU [...] tested positive for COVID on 07/24. At [place] ICU she had worsening hypoxia and was placed on NIV but failed. Was ultimately intubated. Noted to be hypotensive and started on levophed. Pt was transferred to [facility] for higher level of care. On arrival [...] index is 22.06 kg/m . I/O: 08/01 700 - 08/02 0659 In: 1971 [I.V.:1971] Out: [...] Normal [] Scar/Lesion/Mass Inspection of teeth/lips/gums Dentition: [x][place] Teeth []Dentures Lips/Gums: [x]Intact []Lesion Present Mucosa: [x][place] [x]Moist []Dry Neck: External Appearance Overall Appearance: [...] 1216 07/31/24 1220 07/31/24 1801 07/31/24 1810 07/31/24200408/01/24 0002 08/01/24 0003 08/01/24 0608 08/01/24 1148 [...] 07/30/24 0936 07/31/24 0605 PHART 7.399 7.335* FGU7VAP 44.6 47.9* PO2ART 113.8* 143.8* YHJ2VUN 26.9* 25.0 Z9BWKWMS 30% Oxygen Nasal cannula Labs in Last [...] for soft and bite sized diet per COIN MACHINE ASSEMBLER. Has not expressed desire to eat. [...] PM EDT I have personally performed a xuli-hk-iqgm diagnostic evaluation on this patient on date of service08/02/24. History, labs, imaging studies, and electronic medical record have been reviewed by me. This note documented by the [x]charhouse worker []TONJA reflects my history, exam, and medical [...] tested positive for COVID on 07/24. At [place] ICU she had worsening hypoxia and was placed on NIV but failed. Was ultimately intubated. Noted to be hypotensive and started on levophed. Pt was transferred to [facility] for higher level of care. On arrival [...] time. Was cleared for pureed diet by COIN MACHINE ASSEMBLER. Scheduled Meds:dexAMETHasone, 6 mg, IntraVENous, q24h [...] Normal [] Scar/Lesion/Mass Inspection of teeth/lips/gums Dentition: [x][place] Teeth []Dentures Lips/Gums: [x]Intact []Lesion Present Mucosa: [x][place] [x]Moist []Dry Neck: External Appearance Overall Appearance: [...] 1220 07/31/24 1801 07/31/24 1810 07/31/24 1843 07/31/24200408/01/24 0002 08/01/24 0003 08/01/24 0608 08/01/24 1148 08/01/24 1151 GLUCOSE 114* -- 229* -- 161* 104* -- 173* -- -- -- 161* -- 119* -- 170* POCGLU -- < > -- 177* -- -- 127* -- 61* 118* 107* -- 161* 120* 166* -- < > = values in this interval not displayed. CBC: Recent Labs 07/31/24 0605 07/31/24 1216 07/31/24 18008/01/24 0608 WBC 13.3* 15.0* -- 10.4 HGB 7.1 7.1* 6.8* 8.0* 8.3* HCT 22.3* 21.6* 25.4* 25.9* PLT 146 158 -- 156 MCV 92.9 91.1 -- 88.1 RDW 15.2* 15.2* -- 17.1* ABGs: Recent Labs 07/30/24 0212 07/30/24 0936 07/31/24 0605 PHART 7.370 7.399 7.335* DTI7ZDI 46.3* 44.6 47.9* PO2ART 114.1* 113.8* 143.8* LTK9ART 26.2* 26.9* 25.0 X9YTPEWA Vent 30% Oxygen Nasal cannula Labs in [...] PM EDT I have personally performed a whcd-pz-cyfp diagnostic evaluation on this patient on date of service08/01/2024. History, labs, imaging studies, and electronic medical record have been reviewed by me. This note documented by the [x]charhouse worker []TONJA reflects my history, exam, and medical [...] days Referring physician: Kena Heath DO Outpatient Deputy Head: Christy Huerta Assessment/Plan: Mrs. Sandy Deng is a 63 year old female with PMH of CKD 4, DM type 1, HTN, CAD, COPD (3L B2nsitqafn), initially presenting with resp distress and delirium, Covid positive. She was eventuallyintubated. CT head showed a small right SDH. Consulted for UMA on CKD 4 - follows with Dr Wilson ([place]). On review of available labs, Cr has been 2.4-2.8, last (04/26) Cr 2.4 eGFR 20, 24 hr pilunsb=8708 mg. On admit, (07/26) Cr 4.56, CRRT [...] back on service tomorrow. Case discussed with BO. Joni Monson MD [facility] ([facility]) Office phone: [phone] Office fax: [phone] 08/01/2024 Subjective Patient seen this am during CRRT. Family at bedside. She had no new complaints, she appears confused, denied any pain, nausea or vomiting. Per RNelizabeth replaced yesterday, patient was retaining 500 ml [...] 08/01/2024 1100 Gross per 24 hour Intake 1958 ml Output 2661 ml Net -702 ml [REMOVED] Urethral Catheter-Output (mL): 5 mL [REMOVED] Urethral Catheter Elybofdo-ixd-Bxajfj (mL): 0 mL Urethral Catheter Straight-tip;Temperature probe-Output [...] Lines and support devices as above. * Shanti Bianchi COIN MACHINE ASSEMBLER - 08/01/2024 9:06 AM EDT Images from the original note were not included. Speech-Language Pathology SPEECH LANGUAGE PATHOLOGY [facility] Dysphagia Treatment Note Patient Name: Sandy Deng Evaluation Date: 08/01/2024 Date of : 1960 Admission Date: 07/26/2024 4:17 PM Age: 63 y.o. Room/Bed: T2-213/T2213 A Subjective Patient was awake and cooperative. Needed encouragement to participate. Spoke with BO Laughlin who cleared pt for treatment. Current Diet: Dietary Orders (From admission, onward) Start Ordered 07/31/24 170 NPO diet with enteral medications Diet effective [...] PO diet. Plan & Recommendations Continue acute COIN MACHINE ASSEMBLER therapy per initial plan of care [...] Start: 08/01/24 Expected End: 08/15/24 Therapy Time COIN MACHINE ASSEMBLER Individual Minutes Time In: 0845 Time Out: 0900 Minutes: 15 Shanti Bianchi MA, CCC/COIN MACHINE ASSEMBLER * Joni Monson MD - 07/31/2024 2:48 PM EDT Images from the original note were not included. Nephrology Progress Note Patient: Sandy Deng Room number: T2-213/T2 A Date of Admit: 07/26/2024 LOS: 5 days Referring physician: Kena Heath DO Outpatient Deputy Head: Christy Huerta Assessment/Plan: Mrs. Sandy Deng is a 63 year old female with PMH of CKD 4, DM type 1, HTN, CAD, COPD (3L V4hldsshza), initially presenting with resp distress and delirium, Covid positive. She was eventuallyintubated. CT head showed a small right SDH. Consulted for UMA on CKD 4 - follows with Dr Wilson ([place]). On review of available labs, Cr has been 2.4-2.8, last (04/26) Cr 2.4 eGFR 20, 24 hr pktkjgh=8159 mg. On admit, (07/26) Cr 4.56, CRRT [...] care of this patient. Joni Monson MD [facility] ([facility]) Office phone: [phone] Office fax: [phone] 07/31/2024 Subjective Patient seen this am during [...] 750 mL/hr, Last Rate: 750 mL/hr (07/31/24 0905) PrismaSol BGK 2/3.5, 750 mL/hr, Last Rate: 750 mL/hr (07/31/24 0905) PrismaSol BGK 2/3.5, 750 mL/hr, Last Rate: 750 mL/hr (07/31/24 0905) Review of Systems: As above Physical Exam: [...] Catheter-Output (mL): 5 mL [REMOVED] Urethral Catheter Ivxijmgf-ylh-Syenju (mL): 0 mL Urethral Catheter Straight-tip;Temperature probe-Output [...] support devices as above. * Mary Menard, COIN MACHINE ASSEMBLER - 07/31/2024 2:22 PM EDT Images from the original note were not included. Speech-Language Pathology SPEECH LANGUAGE PATHOLOGY [facility] Bedside Swallow Evaluation Patient Name: Sandy Deng Evaluation Date: 07/31/2024 Date of : 1960 Admission Date: 07/26/2024 4:17 PM Age: 63 y.o. Room/Bed: T2213/T2213 A IMPRESSION: S/s oropharyngeal dysphagia. Intermittent overt [...] 08/01. Pt would benefit from skilled acute COIN MACHINE ASSEMBLER services to address further assess po [...] be evaluated. Dysphagia History: No history of COIN MACHINE ASSEMBLER services in EMR with retrospective chart [...] List Diagnosis Date Noted SDH (subdural hematoma) ([facility]) 07/26/2024 COPD (chronic obstructive pulmonary disease) ([facility]) 07/26/2024 Type 1 diabetes mellitus with kidney complication ([facility]) 07/26/2024 Myocardial infarction ([facility]) 07/26/2024 Hyperlipidemia 07/26/2024 Diabetic neuropathy associated with type 1 diabetes mellitus ([facility]) 07/26/2024 Stage 4 chronic kidney disease ([facility]) 07/26/2024 History of Present Illness: 63 year old female with a PMHx of COPD (3L O2 baseline), DM, CKD 4, HTN, CAD, VA (PCI with stents in 2017). at bedside. Pt was admitted to [place] due to confusionand hallucinations. Pt has had episodes of staring off into space per family. Was found to have a subdural hematoma. She reportedly had a fall 1 month ago from bed. states she hit her head onthe nightstand. She is on Plavix and ASA for a stent placed 7 years ago. Pt tested positive for COVID on 07/24. Today at [place] [facility] ICU she had worsening hypoxia and was placed on NIV but failed. Was ultimately intubated. Noted to be hypotensive and started on levophed. Pt was transferred to [facility] for higher level of care. On arrival [...] clinical dysphagia evaluation Start: 07/31/24 Therapy Time COIN MACHINE ASSEMBLER Individual Minutes Time In: 1357 Time Out: 1419 Minutes: 22 RENATO Underwood * Joycelyn Diane, DO - 07/31/2024 7:54 AM EDT ICU Progress Note Name: Sandy Deng : 1960(63 y.o.) Date: 07/31/24 Team: MICU Attending: Dr. Jones Subjective: Hospital Summary: 63 year old female with a PMHx of COPD (3L O2 baseline), DM, CKD 4, HTN, CAD, VA (PCI with stents in 2017). at bedside. Pt was admitted to [facility] due to confusion and hallucinations. Pt has had episodes of staring off into space per family. Was found to have a subdural hematoma. She reportedly had a fall 1 month ago from bed. states she hit her head on the nightstand. She is on Plavix and ASA for a stent placed 7 years ago. Pt tested positive for COVID on 07/24. Today at [facility] ICU she had worsening hypoxia and was placed on NIV but failed. Was ultimately intubated. Noted to be hypotensive and started on levophed. Pt was transferred to [facility] for higher level of care. On arrival [...] 2/3.5, 750 mL/hr, Last Rate: 750 mL/hr (07/30/24 1904) PrismaSol BGK 2/3.5, 750 mL/hr, Last Rate: 750 mL/hr (07/30/241903) PrismaSol BGK 2/3.5, 750 mL/hr, Last Rate: 750 mL/hr (07/30/241903) Objective: Last Vitals: BP MAP 102/67 (07/31/24 0100) 74 (07/31/24 0100) Arterial BP MAP 141/52 (07/31/24 0700) 75 mmHg (07/31/24699) Temp 36.1 C (97 F) (07/31/24 0400) Pulse 79 (07/31/24 07) Resp (!) 10 (07/31/24699) SpO2 99 % (07/31/24699) Weight 62 kg [...] Normal [] Scar/Lesion/Mass Inspection of teeth/lips/gums Dentition: [][place] Teeth []Dentures Lips/Gums: [x]Intact []Lesion Present Mucosa: [x][place] [x]Moist []Dry Neck: External Appearance Overall Appearance: [...] within last 24 hours- BMP: Recent Labs 07/28/24125607/28/24180707/30/24171407/31/24607/31/24 06 NA 130* < > 132* 132* 131* [...] this interval not displayed. LFTs: Recent Labs 07/28/24125607/28/24180707/30/24171407/31/24607/31/24 0605 AST 44 -- -- -- -- [...] 0028 07/30/24 0557 07/30/24 0601 07/30/24 1114 07/30/24171407/30/24199907/31/24 00007/31/24 00007/31/24 0604 07/31/24 0605 GLUCOSE 33* -- -- [...] 0936 07/31/24 0605 PHART 7.370 7.399 7.335* GVY9XIY 46.3* 44.6 47.9* PO2ART 114.1* 113.8* 143.8* JUG3UAS 26.2* 26.9* 25.0 R7FRWQDG Vent 30% Oxygen Nasal cannula Lactic Acid: [...] after extubation. NCC now signed off - [facility] 6. Protecting airway. Will continue to monitor [...] excluding procedures. Associated attestation - Kena Heath, DO - 07/31/2024 1:03 PM EDT I have personally performed a ubxq-bo-zgza diagnostic evaluation on this patient on date of service07/31/2024. History, labs, imaging studies, and electronic medical record have been reviewed by me. This note documented by the [x]charhouse worker []TONJA reflects my history, exam, and medical [...] so far today, excludingprocedures. * Mary Mcintosh, CLOTHING SORTER - 07/30/2024 11:48 AM EDT 07/30/24 1141 [...] Consult Note Patient: Sandy Deng Room number: T2/T2 A Date of Admit: 07/26/2024 LOS: 4 days Referring physician: Kena Heath DO Outpatient Deputy Head: Christy Huerta Reason for Consult: Asked to [...] 4 - follows with Dr Christy Huerta ([place]). - On review of available labs, Cr has been 2.4-2.8, last (04/26) Cr 2.4 eGFR 20, 24 hr dtotgeh=1368 mg. - Home med includes losartan 25 [...] 4 - follows with Dr Christy Huerta ([place]). On review of available labs, Cr has been 2.4-2.8, last (04/26) Cr 2.4 eGFR 20, 24 hr yepwmij=1198 mg. Home med includes losartan 25 mg [...] Urethral Catheter-Output (mL): 5 mL Urethral Catheter Dzshokcg-smi-Ssenfj (mL): 0 mL FIO2 needs: Patient Vitals [...] IRON, TIBC, FERRITIN No results found for: [id number], FOLATE Recent Labs 07/27/24 2114 07/28/24 0409 07/28/24 1257 07/28/24 1808 07/29/24 1115 07/29/24 1736 07/29/24202007/30/24 0028 07/30/24 0557 NA 131* 131* 130* < > 131* 133* -- 132* 132* K 3.6 4.5 4.5 < > 4.9 5.0 -- 5.3* 5.4* CL 102 104 102 < > 104 106 -- 106 105 CO2 24 < > 26 -- 24 BUN 41* 34* 31* < > [...] 72 hours. No lab exists for component: CO2SOCRATES MUKHERJEE Diagnostic Studies: TTE: CXR: reviewed in PACS Personally reviewed MARS, labs, radiologic studies and notes. Karyn Jones MD Pager [phone] [facility] [phone] D/w ICU * Torito Mahajan - 07/30/2024 10:36 AM EDT NEUROCRITICAL CARE PROGRESS NOTE Patient Name: Sandy Deng Patient : 1960 Acct: [id number] Date of Admission: 07/26/2024 Room[facility]: [facility] A PCP: Bird Lujan Interval Events: - [...] BID, Deacon Mazariegos MD, 3 mL at 07/29/24 194 labetalol (Normodyne,Trandate) injection 10 mg, 10 mg, [...] in 0.9 % sodium chloride 250 mL (Ffd-Djsmjb-Sweaq) (premix), 2-100 mcg/min, IntraVENous, Continuous, Simone Momin [...] IntraVENous, q24h, Kena Heath DO, Stopped at 07/29/241836 sodium chloride 0.9 % bolus 30 mL, 30 mL, IntraVENous, PRN, Kena Heath, sodium chloride 0.9 % infusion, 75 mL/hr, IntraVENous, PRN, Clara Mayes, Continuous Infusions: dexmedeTOMIDine, 0.1-1.5 mcg/kg/hr, Last Rate: [...] -- -- -- 63 16 100 % 07/30/2430 -- -- -- 64 16 100 % 07/30/2415 -- -- -- 62 16 100 % 07/30/24899 -- -- -- 65 16 100 % 07/30/2445 -- -- -- 63 16 100 % 07/30/2430 -- -- -- 63 16 100 % 07/30/2415 -- -- -- 63 16 100 % 07/30/24 08 145/54 36.3 C (97.3 F) Temporal 65 16 100 % 07/30/24 0745 -- -- -- 68 16 100 % 07/30/2430 -- -- -- 66 16 100 % 07/30/2415 -- -- -- 65 16 100 % 07/30/24 07 -- -- -- 64 16 100 % 07/30/24 0645 -- -- -- 64 16 100 % 09/27/24 0630 -- -- -- 65 16 100 [...] 78 ALT 23 AST 44 BILITOT 0.5 @BRIEFLAB([facility]) ABGs:)No results for input(s): PH, PO2, [...] original note were not included. PHYSICAL THERAPY [facility] Name/MRN: Sandy Deng ([id number]) Date: 07/30/2024 Screen Note. Pt remains intubated [...] O2 baseline), DM, CKD 4, HTN, CAD, VA (PCI with stents in 2017). at bedside. Pt was admitted to [place] due to confusion and hallucinations. Pt has had episodes of staring off into space per family. Was found to have a subdural hematoma. She reportedly had a fall 1 month ago from bed. states she hit her head on the nightstand. She is on Plavix and ASA for a stent placed 7 years ago. Pt tested positive for COVID on 07/24. Today at [place] ICU she had worsening hypoxia and was placed on NIV but failed. Was ultimately intubated. Noted to be hypotensive and started on levophed. Pt was transferred to [facility] for higher level of care. On arrival [...] Normal [] Scar/Lesion/Mass Inspection of teeth/lips/gums Dentition: [][place] Teeth []Dentures Lips/Gums: [x]Intact []Lesion Present Mucosa: [x][place] [x]Moist []Dry Neck: External Appearance Overall Appearance: [...] this interval not displayed. Glucose: Recent Labs 07/28/24125607/28/24 1514 07/28/24 18007/28/24200607/28/24 2346 07/28/24 23407/29/24 0557 07/29/24 0601 07/29/24 1115 07/29/24 17307/29/24 1844 07/29/24 1900 07/29/24201307/29/24202007/29/24202107/30/24 0028 GLUCOSE 149* [...] 1408 07/30/24 0212 PHART 7.506* 7.439 7.370 FKL4SHS 34.5* 37.9 46.3* PO2ART 88.9 96.3 114.1* NCO7WLN 26.7* 25.1* 26.2* N2SQZAHX 30% Oxygen 30% Oxygen Vent Lactic Acid: [...] and Plan: Principal Problem: SDH (subdural hematoma) ([facility]) Active Problems: COPD (chronic obstructive pulmonary disease) ([facility]) Type 1 diabetes mellitus with kidney complication ([facility]) Hyperlipidemia Diabetic neuropathy associated with type 1 [...] AM EDT I have personally performed a qkgm-ol-vqzt diagnostic evaluation on this patient on date of service07/30/2024. History, labs, imaging studies, and electronic medical record have been reviewed by me. This note documented by the [x]charhouse worker []TONJA reflects my history, exam, and medical [...] Number Called: NA Name of Designated Family Meter And Regulator Shop Supervisor: Jose Deng and pt's sister Relationship: spouse Family Meter And Regulator Shop Supervisor Updated on the Following: Updated on the [...] days Referring physician: Kena Heath DO Outpatient Deputy Head: Christy Huerta Reason for Consult: Asked to [...] 4 - follows with Dr Christy Huerta ([place]). - On review of available labs, Cr has been 2.4-2.8, last (04/26) Cr 2.4 eGFR 20, 24 hr qvknfkz=7052 mg. - Home med includes losartan 25 [...] 4 - follows with Dr Christy Huerta ([place]). On review of available labs, Cr has been 2.4-2.8, last (04/26) Cr 2.4 eGFR 20, 24 hr jjvxojz=1963 mg. Home med includes losartan 25 mg daily. On admit, (9/23) Cr 4.56, lowest SBP 90s, got 1 [...] Urethral Catheter-Output (mL): 5 mL Urethral Catheter Owbibzrx-nwy-Epokzx (mL): 0 mL FIO2 needs: Patient Vitals [...] IRON, TIBC, FERRITIN No results found for: [id number], FOLATE Recent Labs 07/27/24 0530 07/27/24 1427 07/27/24 2114 07/28/24 0409 07/28/24 1257 07/28/24 1808 07/28/24 2349 07/29/24 0557 07/29/24 1115 NA 130* < > 131* 131* 130* 131* 130* 131* 131* K 4.3 < > 3.6 4.5 4.5 4.2 4.6 5.2* 4.9 CL 101 < > 102 104 102 103 104 104 104 CO2 18* < > 24 23 24 26 26 25 26 BUN 66* < > 41* 34* 31* [...] studies and notes. Karyn Jones MD Pager [phone] [facility] [phone] D/w ICU * Jamey Muro OT - 07/29/2024 11:27 AM EDT Images from the original note were not included. OCCUPATIONAL THERAPY [facility] Name/MRN: Sandy Deng ([id number]) Date: 07/29/2024 Pt remains on strict bed rest. Will continue to follow. Jamey Muro OT * Jennifer Saldaña - 07/29/2024 9:25 AM EDT Images from the original note were not included. PHYSICAL THERAPY [facility] Name/MRN: Sandy Deng ([id number]) Date: 07/29/2024 Hold Note. Pt remains intubated [...] O2 baseline), DM, CKD 4, HTN, CAD, VA (PCI with stents in 2017). at bedside. Pt was admitted to [place] due to confusion and hallucinations. Pt has had episodes of staring off into space per family. Was found to have a subdural hematoma. She reportedly had a fall 1 month ago from bed. states she hit her head on the nightstand. She is on Plavix and ASA for a stent placed 7 years ago. Pt tested positive for COVID on 07/24. Today at [place] ICU she had worsening hypoxia and was placed on NIV but failed. Was ultimately intubated. Noted to be hypotensive and started on levophed. Pt was transferred to [facility] for higher level of care. On arrival [...] BP MAP 146/57 (07/29/24 0700) 84 mmHg (07/29/24699) Temp 36.1 C (97 F) (07/29/24 0400) Pulse 74 (07/29/24 07) Resp 20 (07/29/24 07) SpO2 98 % (07/29/24699) Weight 62 kg (136 lb 11 oz) (07/29/24 0500) BMI Body mass index is 22.06 kg/m . I/O: 07/28 0700 - 07/29 0659 In: 2652.4 [I.V.:1533.4] Out: [...] Normal [] Scar/Lesion/Mass Inspection of teeth/lips/gums Dentition: [][place] Teeth []Dentures Lips/Gums: [x]Intact []Lesion Present Mucosa: [x][place] [x]Moist []Dry Neck: External Appearance Overall Appearance: [...] 102 104 102 103 104 104 CO2 BUN 41* 34* 31* 30* 28* 28* CREATININE 2.18* 1.80* 1.50* 1.33* 1.26* 1.32* CALCIUM 7.3* 7.4* 7.3* 7.8* 7.4* 7.5* MG 1.9 2.2 2.7* -- -- -- PHOS -- 3.6 3.5 2.7 2.4* 3.2 LFTs: Recent Labs 07/26/24 1850 07/27/24 0530 07/27/24 1427 07/28/24125607/28/24180707/28/24234807/29/24 0557 AST 40 28 -- 44 -- [...] 07/27/24 0950 07/27/24 1427 07/27/24 1506 07/27/24 21107/27/24222107/27/24 23307/28/24 0409 07/28/24 0414 07/28/24 0938 07/28/24125607/28/24 1514 07/28/24 18007/28/24200607/28/24 23407/28/24 23407/29/24 0557 07/29/24 0601 GLUCOSE 254* -- 83 -- 87 -- -- 143* -- -- 149* -- 139* -- -- 123* 206* -- POCGLU -- < > -- < > -- 88 119* -- 148* 131* -- 186* -- 106* 130* -- -- 217* < > = values in this interval not displayed. Procal: Recent Labs 07/26/24 1850 PROCAL 2.48* CBC: Recent Labs 07/27/24 0530 [...] 0409 07/29/24 0558 PHART 7.398 7.401 7.502* QYV6IFX 41.9 38.6 32.6* PO2ART 100.1* 120.0* 110.0* VFZ4EKB 25.3* 23.4 25.0 T0AOCEXX 30% Oxygen Vent Vent Lactic Acid: Recent [...] and Plan: Principal Problem: SDH (subdural hematoma) ([facility]) Active Problems: COPD (chronic obstructive pulmonary disease) ([facility]) Type 1 diabetes mellitus with kidney complication ([facility]) Hyperlipidemia Diabetic neuropathy associated with type 1 diabetes mellitus ([facility]) Assessment/Plan: Stable Small Right Temporal SDH (identified [...] procedures. Associated attestation - Kena Heath, - 07/29/2024 2:48 PM EDT I have personally performed a tgce-zx-xowx diagnostic evaluation on this patient on date of service07/29/2024. History, labs, imaging studies, and electronic medical record have been reviewed by me. This note documented by the [x]charhouse worker []TONJA reflects my history, exam, and medical [...] so far today, excludingprocedures. * Cruzito Molina, JUDE - 07/29/2024 3:05 AM EDT 07/29/24 0258 [...] days Referring physician: Kena Heath DO Outpatient Deputy Head: Christy Huerta Reason for Consult: Asked to [...] 4 - follows with Dr Christy Huerta ([place]). - On review of available labs, Cr has been 2.4-2.8, last (04/26) Cr 2.4 eGFR 20, 24 hr gjrbozy=2772 mg. - Home med includes losartan 25 [...] 4 - follows with Dr Christy Huerta ([place]). On review of available labs, Cr has been 2.4-2.8, last (04/26) Cr 2.4 eGFR 20, 24 hr agmbrwy=9990 mg. Home med includes losartan 25 mg [...] Urethral Catheter-Output (mL): 5 mL Urethral Catheter Lkjqbfph-ece-Uzxdup (mL): 0 mL FIO2 needs: Patient Vitals [...] IRON, TIBC, FERRITIN No results found for: [id number], FOLATE Recent Labs 07/26/24 1850 07/27/24 0530 [...] studies and notes. Karyn Jones MD Pager [phone] [facility] [phone] * Torito Mahajan - 07/28/2024 10:43 AM EDT NEUROCRITICAL CARE PROGRESS NOTE Patient Name: Sandy Deng Patient : 1960 Acct: [id number] Date of Admission: 07/26/2024 Room/Bed: T2-213/T2-213 A PCP: Bird Lujan Interval Events: - Placed on cEEG overnight. Read pending but no notification of seizures - Exam significantly improved Current Hospital Medications: Current Facility-Administered Medications: dexAMETHasone (Decadron) injection 6 mg, 6 mg, IntraVENous, q24h, Kena Heath DO, 6 mg at 07/27/241808 dextrose 5 % infusion, 100 mL/hr, IntraVENous, [...] BID, Deacon Mazariegos MD, 3 mL at 07/28/24917 labetalol (Normodyne,Trandate) injection 10 mg, 10 mg, [...] in 0.9 % sodium chloride 250 mL (Ekf-Seluyd-Wmoeg) (premix), 2-100 mcg/min, IntraVENous, Continuous, Simone Momin DO, Last Rate: 1.88 mL/hr at 07/28/24 0927, 2 mcg/min at 07/28/24 0927 ondansetron ODT (Zofran-ODT) disintegrating tablet 4 mg, [...] at 07/28/24 0552, 750 mL/hr at 07/28/24 05 propofol (Diprivan) infusion, 5-50 mcg/kg/min, IntraVENous, Continuous, [...] Temp Temp src Pulse Resp SpO2 Weight 07/28/24 0945 -- -- 71 20 98 % -- 07/28/2438 -- -- 72 20 98 % -- 07/28/2430 -- -- 75 20 100 % -- 07/28/2422 -- -- 69 20 100 % -- 07/28/24 0920 -- -- 68 20 100 % -- 07/28/2415 -- -- 68 20 100 % -- 07/28/2400 -- -- 73 20 100 % -- 07/28/2445 -- -- 64 20 100 % -- 07/28/2430 -- -- 68 20 100 % -- [...] 416 ms QTC Interval 456 ms P [place] 0 degrees QRS [place] 14 degrees T Wave [place] 0 degrees LA Interval 0 ms Basic metabolic panel Collection [...] 66 ALT 19 AST 28 BILITOT 0.3 @BRIEFLAB([facility]) ABGs:)No results for input(s): PH, PO2, [...] participate in their own care). * Joycelyn Diane, DO - 07/28/2024 6:22 AM EDT ICU Progress Note Name: Sandy Deng : 1960(63 y.o.) Date: 07/28/24 Team: MICU Attending: Dr. Jones Subjective: Hospital Summary: 63 year old female with a PMHx of COPD (3L O2 baseline), DM, CKD 4, HTN, CAD, VA (PCI with stents in 2017). at bedside. Pt was admitted to [place] [facility] due to confusion and hallucinations. Pt has had episodes of staring off into space per family. Was found to have a subdural hematoma. She reportedly had a fall 1 month ago from bed. states she hit her head on the nightstand. She is on Plavix and ASA for a stent placed 7 years ago. Pt tested positive for COVID on 07/24. Today at [facility] [place] [facility] ICU she had worsening hypoxia and was placed on NIV but failed. Was ultimately intubated. Noted to be hypotensive and started on levophed. Pt was transferred to [facility] for higher level of care. On arrival [...] (96.9 F) (07/28/24 0400) Pulse 71 (07/28/24 0600) Resp 20 (09/25/24 0600) SpO2 98 % (07/28/24 06) Weight 61.2 kg (134 lb 14.7 oz) (07/28/24 0500) BMI Body mass index is 21.78 kg/m . I/O: 07/27 07 - 07/28 06 In: 2810.8 [I.V.:2421.8] Out: 2731 [Urine:73] Ventilator: [...] Normal [] Scar/Lesion/Mass Inspection of teeth/lips/gums Dentition: [][place] Teeth []Dentures Lips/Gums: [x]Intact []Lesion Present Mucosa: [x][place] [x]Moist []Dry Neck: External Appearance Overall Appearance: [...] BMP: Recent Labs 07/27/24 0530 07/27/24 1427 09211307/28/24 0409 NA 130* 131* 131* 131* K 4.3 3.6 3.6 4.5 CL 101 102 102 104 CO2 18* BUN 66* 49* 41* 34* CREATININE 4.00* 2.81* 2.18* 1.80* CALCIUM 6.5* 7.5* 7.3* 7.4* MG 2.0 -- 1.9 2.2 PHOS 6.8* 4.6* -- 3.6 LFTs: Recent Labs 07/26/24184907/27/24 0507/27/24 1427 AST 40 28 -- ALT 21 19 -- PROT 5.5* 4.9* -- ALBUMIN 2.9* 2.4* 2.4* BILITOT 0.5 0.3 -- ALKPHOS 68 66 -- Glucose: Recent Labs 07/26/24184907/27/24 01507/27/24 0507/27/24 0950 07/27/24 1427 07/27/24 1506 07/27/24 1803 07/27/24 1819 07/27/24 18307/27/24 2013 07/27/24 20407/27/24 21107/27/24 22207/27/24 2338 07/28/24 0409 07/28/24 0414 GLUCOSE 252* -- 254* -- 83 -- -- -- -- -- -- 87 -- -- 143* -- POCGLU -- < > -- < > -- < > 53* 110* 86 64* 112* -- 88 119* -- 148* < > = values in this interval not displayed. Procal: Recent Labs 07/26/241849 PROCAL 2.48* CBC: Recent Labs 07/26/24184907/26/24223107/27/2452907/27/24 0652 07/27/24 1622 07/28/24 0409 WBC 18.7* [...] 1622 07/28/24 0409 PHART 7.286* 7.398 7.401 JVO5JST 52.3* 41.9 38.6 PO2ART 115.1* 100.1* 120.0* UDJ2GNL 24.4 25.3* 23.4 M7OWJXWM 30% Oxygen 30% Oxygen Vent Lactic Acid: [...] and Plan: Principal Problem: SDH (subdural hematoma) ([facility]) Active Problems: COPD (chronic obstructive pulmonary [...] PM EDT I have personally performed a eazp-ml-rpqr diagnostic evaluation on this patient on date of service07/28/2024. History, labs, imaging studies, and electronic medical record have been reviewed by me. This note documented by the [x]charhouse worker []TONJA reflects my history, exam, and medical [...] Torres RCP - 07/28/2024 4:53 AM EDT [facility] Respiratory Care Department Progress Note Spontaneous [...] 1622 07/28/24 0409 PHART 7.286* 7.398 7.401 ATQ3IND 52.3* 41.9 38.6 PO2ART 115.1* 100.1* 120.0* GAP9SRD 24.4 25.3* 23.4 R6AHEKBY 30% Oxygen 30% Oxygen Vent Does this [...] 12- 24 hours post-extubation. Montana Sahni MA [facility]COIN MACHINE ASSEMBLER * Delmar Ling OT - 07/27/2024 8:22 AM EDT Images from the original note were not included. OCCUPATIONAL THERAPY [facility] Name/MRN: Sandy Deng ([id number]) Date: 07/27/2024 Intubated, sedated, on bed rest. Will follow. Delmar Ling OT * Jennifer Saldaña - 07/27/2024 7:30 AM EDT Images from the original note were not included. PHYSICAL THERAPY [facility] Name/MRN: Sandy Deng ([id number]) Date: 07/27/2024 Screen Note. Pt remains intubated and sedated, and on strict bed rest orders. Will continue to follow and re-attempt as able. Jennifer Saldaña, JEY * Dariel Santizo MD - 07/27/2024 7:08 AM EDT ICU Progress Note Name: Sandy Deng : 1960(63 y.o.) Date: 07/27/24 Team: MICU Attending: Kumar Subjective: Hospital Summary: Sandy Deng is a 63 year old female with a PMHx of COPD (3L O2 baseline), DM, CKD 4, HTN, CAD (PCI with stents in 2017). at bedside. Pt was admitted to [facility] due toconfusion and hallucinations. Pt has had episodes of staring off into space per family. Was found to have a subdural hematoma. She reportedly had a fall 1 month ago from bed. states she hit her head on the nightstand. She is on Plavix and ASA for a stent placed 7 years ago. Pt tested positive for COVID on 07/24. Today at [facility] ICU she had worsening hypoxia and was placed on NIV but failed. Was ultimately intubated. Noted to be hypotensive and started on levophed. Pt was transferred to [facility] for higher level of care. On arrival [...] norepinephrine, 2-100 mcg/min, Last Rate: 2 mcg/min (07/27/2406) PrismaSol BGK 2/3.5, 750 mL/hr, Last Rate: [...] (99.1 F) (07/27/24 0400) Pulse 56 (07/27/24 0630) Resp 14 (07/27/24 0630) SpO2 100 % (07/27/24 0630) Weight 48 kg (105 lb 13.1 oz) (07/26/24 1723) BMI There is no height or weight on file to calculate BMI. I/O: 07/26 0700 - 07/27 0659 In: 2531 [I.V.:2531] Out: 345 [Urine:84] Ventilator: [...] Normal [] Scar/Lesion/Mass Inspection of teeth/lips/gums Dentition: [][place] Teeth []Dentures Lips/Gums: [x]Intact []Lesion Present Mucosa: [x][place] [x]Moist []Dry Neck: External Appearance Overall Appearance: [...] within last 24 hours- BMP: Recent Labs 07/26/24 1850 07/27/24 0530 NA [...] Recent Labs 07/26/24223107/27/24 0652 PHART 7.166* 7.214* GNM7HHE 30.4* 53.5* PO2ART 95.4 108.9* GTL3XJU 10.7* 21.1 W0ADORPS Vent Vent Lactic Acid: Recent Labs 07/26/24 1850 LACTATE 0.9 INR: No results for input(s): INR in the last 72 hours. 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 History, labs, imaging studies, and electronic medical record have been reviewed by me. This note documented by the [x]charhouse worker []TONJA reflects my history, exam, and medical [...] CKD, on ASA/Plavix who initially presented to [facility] on 07/23 with acute respiratory distress and acutedelirium. She was found to be hypoxic and hypercarbic, and COVID positive. She continued to be delirious and did not tolerate NIV, and today required intubation. A CT head was done to evaluate her altered mental status, and she was found to have a small acute right sided SDH vs. epidural hematoma. For this reason, [facility] consulted for further neurologic management and she [...] 0.01-0.03 Units/min, Last Rate: 0.03 Units/min (07/26/24 2235) PRN Meds:PRN medications: dextrose, dextrose, glucagon (rDNA), glucose, hydrALAZINE, labetalol, naloxone, ondansetron ODT OR ondansetron, polyethylene glycol (PEG) 3350, sodium chloride, sodium chloride ASSESSMENT AND PLAN: 63 y.o. female s/p presented to [facility] ED with confusion since the prior night [...] SDH -patient admitted yesterday after transfer from [facility] with hypoxic respiratory failure, known COPD hx, [...] minutes (including chart/data review/analysis, care coordination, and bgmz-di-sgcf encounter), and was spent discussing/counseling the patient/family [...] & Acute Care Surgery Department of Surgery [facility] Pager: [phone] ~~~~~~~~~~~~~~~~~~~~~~~~~~~~~~~~~~~~~~~~~~~~~~~~~~~~~~~~~~~~~ This note may have been dictated using [employer] Practice Edition 2.6 and/or [employer] Voice Recognition Feature. The document was proofread; however, unrecognized voice recognition line tester errors may be present. * Joni Monson [...] epidural hematoma and patient was transferred to [facility]. She was placed on levophed. She is [...] call with any questions. Joni Monson MD [facility] Office phone: [phone] Office fax: [phone] 07/27/2024 documented in this [facility]10-08-2024 Miscellaneous Notes* Care Coordination - Otilia Arellano RN - 08/10/2024 11:38 AM EDT Active with computer assistant avery ext [phone] per , tcc called left VM regarding discharge plan. At today , will discharge to [facility] , at bedside aware and agree to plan .. * Care Coordination - Unknown Case Management - 08/10/2024 10:00 AM EDT Patient Choice Patient Name: SANDY DENG Date of : 1960 All Providers Sent Referral Name: [facility] Address: [address] [place] [address] Name: [facility] Phone: [phone] Address: [address] [place] [address] Name: [facility] Phone: [phone] Address: [address] [place] [address] Name: [facility] Address: [address] [place] [address] Name: [facility] Address: [address] [place] [address] Name: [facility] Phone: [phone] Address: [address] [place] [address] * Care Coordination - SAPNA Richards - 08/10/2024 9:59 AM EDT Transportation set via [employer] through [employer] for today 08-10-24 @2pm to [facility]. ROSALINE, RN, [employer] D[employer] Cattle Farmer, facility, Pt, and Pt's Jose notified. * Care Coordination - Kimberlee Valdovinos - 08/10/2024 8:14 AM EDT Discharge med list transmitted to REHAB- [facility] via Careport per TCC request. * Care Coordination - Otilia Arellano RN - 08/10/2024 6:15 AM EDT She is approved to [facility], [facility] to send mar today . [...] she has been to HD class at [facility] . And that is the out [...] Need accepting rehab center- tcc messaged to [place] and [facility] and [facility] to see who can accept [...] maintained or improved Outcome: Progressing * Care [place] - Gloria Vides RN - 08/08/2024 4:24 AM EDT Problem: Knowledge Deficit Goal: Patient/family/caregiver demonstrates understanding of disease process, treatment plan, medications, and discharge instructions Outcome: Progressing Problem: Potential for Compromised Skin Integrity Goal: Skin Integrity is Maintained or Improved Outcome: Progressing Goal: Nutritional status is improving Outcome: Progressing Problem: Urinary Incontinence Goal: Perineal skin integrity is maintained or improved Outcome: Progressing * Troy Singh - Blue Middleton RN - 08/07/2024 11:06 [...] out pt HD , will try for [facility], did not prefer days anything will work [...] 8:29 AM EDT Referral placed to REHAB [facility] via [facility] per TCC request. Referral placed to SNF [facility] via [facility] per TCC request. Await review and response regarding ability to accept. TCC notified. * Care Coordination - Otilia Arellano RN - 08/06/2024 6:50 AM EDT Transfer from [facility], complex discharge, need HD, recent covid, per PT/OT need rehab, live in [place], ready for discharge soon, not today , [...] and too far as she lives in [place] area, will get lists to bedside and TCC did sent mass referral - weekend tcc to follow or therapy and acceptance options . Cont to follow , tcc will update the family as able . * Care Coordination - Shaniqua Parker RN - 08/06/2024 5:54 AM EDT Care Management Progress Note Chart reviewed. Patient admitted to [facility] ICU for SDH 07/26/2024. Consults to IP CONSULT TO NEUROSURGERY IP CONSULT TO NEUROLOGY IP CONSULT TO NEPHROLOGY IP CONSULT TO DIETITIAN IP WOUND CARE NURSE CONSULT TO EVAL Discharge Planning/Barriers: HDC - tunneled. iHD - T, TH, S. PT/OT recs noted. Late entry note from 08/05/24 - CM requested to start facility auth if able 08/05. [facility] per secure chat we are back to not having a dialysis bed available. you should likely make other plans for her. BHARAT explained by [facility] liaison, not willing to start auth until HD bed available. BHARAT notes that [facility] IPR nor [facility] IPR have in house HD. Patient was hoping to have IPRwith in house HD. CM will discuss with patient, as able, for other options than IPR at [facility]. [place] and [facility] are locations not yet offered/confirmed if they have HD beds available. Discharge Plan: IPR vs SNF. Awaiting additional facility choices/discussion, clinical stability and medical clearance. Will continue to follow with [facility]. Length of Stay (Days): 11 GMLOS: 5.1 [...] Progress Note Chart reviewed. Patient admitted to [facility] ICU for SDH 07/26/2024. Consults to IP CONSULT TO NEUROSURGERY IP CONSULT TO NEUROLOGY IP CONSULT TO NEPHROLOGY IP CONSULT TO DIETITIAN IP WOUND CARE NURSE CONSULT TO EVAL Discharge Planning/Barriers: HDC - tunneled. iHD - T, TH, S. PT/OT recs noted. CM spoke with patient at bedside. Re-introduced myself and role. Discussed discharge planning. [facility][1] does not have inpatient diaylsis. Patient would prefer to participate in IPR at [facility] where IPHD is available. CM updated facilities. Discharge Plan: [facility]. Awaiting OT eval, facility precert, clinical stability and medical clearance. Will continue to follow with [facility]. Length of Stay (Days): 9 GMLOS: 5.1 * Care Coordination - Shilo Bose - 08/03/2024 2:05 PM EDT Referral placed to Rehab - [facility] via [facility]port per [facility] request. Await review and response regarding ability [...] agreeable to rehab at discharge. CM tasked [facility] to send referrals to [facility] and [facility] for IPR and iHD. Discharge Plan: [facility] and [facility]. Awaiting facility acceptance, facility precert, clinical stability and medical clearance. Will continue to follow with [facility]. Length of Stay (Days): 8 GMLOS: [...] Yes, addressed in today's progress note Anticipated Tatums Medications (ICU initiated) or Dose Changes and [...] 24 hours of ICU transfer, page ICU [place] [facility] for clarifications. * Care Coordination - Shaniqua Parker RN - 08/02/2024 10:33 AM EDT Images from the original note were not included. Care Management Progress Note Chart reviewed. Patient admitted to [facility] ICU for SDH 07/26/2024. Consults [...] Progress Note Chart reviewed. Patient admitted to [facility] ICU for SDH 07/26/2024. Consults [...] Assess Permission given to speak with patient teleservices representative/caregiver as indicated: Confirmation of Payer with patient/family: Payer Name: [employer] [place] : Confirmation of Primary Care Physician: PCP [...] Information: Chart reviewed. Patient direct admit from [facility] to [facility] ICU for SDH 07/26/2024. Consults to IP CONSULT TO NEUROSURGERY IP CONSULT TO NEUROLOGY IP CONSULT TO NEPHROLOGY Initial Assessment: IA completed with chart review. Patient transferred from [facility]. NOK listed. Patient has insurance, prescription coverage and active with PCP. CM called PCP office spoke with BO Walker to confirm patient active. Discharge Planning/Barrier: Intubated/sedated. Art line. TLC CVC. HDC. CRRT. N/OGT. NPO. Johnson. IV qtt - levophed, vasopressin PT/OT/COIN MACHINE ASSEMBLER pending. CM requests [facility] to follow peripherally. Discharge Plan: TBD. Awaiting clinical stability and medical clearance. Will continue to follow with [facility]. Shaniqua Parker RN documented in this [facility]10-08-2024 [facility] 08-09-2024 Hospital Discharge instructions* Discharge Instr - CHELO* Jim Rodriguez RN - 08/09/2024 1:31 PM EDT Images from the original note were not included. Continuity of Care Form Patient Name: Sandy Deng : 1960 Admit date: 07/26/2024 Discharge date: 08/10/2024 Code Status Order: Full Code Advance Directives: N Admitting Physician: Ino Conte MD PCP: Bird Lujan Discharging Nurse: Jim RN Discharging Hospital Unit/Room#: W3-068/W3-556 B Discharging Unit Phone Number: [phone] Emergency Contact: Extended Emergency Contact Information Primary Emergency Contact: Bobbi Steward Mobile Relation: Daughter Preferred language: Chilean Dietitian Helper needed? No Secondary Emergency Contact: Jose Deng Mobile Relation: Spouse Preferred language: Chilean Dietitian Helper needed? No Past Surgical History: Past Surgical [...] assistance Toileting Minimal assistance Feeding Minimal assistance It Infrastructure Manager Total assistance Med Delivery yes Wound Care [...] Date: 07/26/24 Discharging to Facility/ Agency Name: [facility] Address: [address] Fax: Dialysis Facility (if applicable) Name: [facility] is preference at out pt if needed Address: Dialysis Schedule: Phone: Fax: Documentation Manager/Diplomatic Officer signature: at1:31 PM PHYSICIAN SECTION Name: Sandy [...] to a nursing facility directly from an [facility] or a unit of a [facility] that is not operated by or licensed by [facility] under section 5119.14 or 5160-3-15.1 5 The [...] in H&P PHYSICIAN SIGNATURE: documented in this [place] [address]-01-2024 NoteRef[facility] request. Await review and response regarding ability to accept. TCC notified. Electronically signed by [facility]09-26-2024 [facility]09-26-2024 Procedure note* Armen Diaz MD PhD - 07/29/2024 12:43 PM EDTAssociated Order(s): EEG CONTINUOUS MONITORING Images from the original note were not included. [facility] EPILEPSY CENTER & EEG LABORATORY [address] [place] [id number] CONTINUOUS LONG-TERM VIDEO EEG MONITORING REPORT Patient Name: Sandy Deng : 1960 Date of Study: 07/29/2024 Duration Recorded: 14:59:56 EEG#: [id number] OCCUPATIONAL THERAPIST: LIBRA Peters CLTM PROVIDER REQUESTING STUDY: Dr. Mahajan REASON FOR EXAM: Evaluate for epileptiform activity DIAGNOSIS TAG: Subdural Hemorrhage (SDH) HISTORY: Sandy Deng is a 63 y.o. female with history of COPD (3L O2 baseline), DM, CKD 4, HTN, CAD (PCI with stents in 2017). at bedside. Pt was admitted to [facility] due to confusion and hallucinations. Pt has had episodes of staring off into space per family. Was found to have a subdural hematoma. She reportedly had a fall 1 month ago from bed. states she hit her head on the nightstand. She is on Plavix and ASA for a stent placed 7 years ago. Pt tested positive for COVIDon 07/24. Today at [facility] ICU she had worsening hypoxia and was placed on NIV but failed. Was ultimately intubated. Noted to be hypotensive and started on levophed. Pt was transferred to [facility] for higher level of care. On arrival [...] mg 6 mg IntraVENous q24h Kena Heath, 6 mg at 07/28/24 1758 dextrose 5 % infusion 100 mL/hr IntraVENous PRN Deacon Mazariegos MD dextrose 50 % solution 12.5 g 12.5 g IntraVENous PRN Deacon Mazariegos MD 12.5 g at 07/27/242024 fentaNYL (Sublimaze) 1000 mcg in sodium chloride 0.9 % 100 mL 10 mcg/mL infusion 25-200 mcg/hr IntraVENous Continuous Clara Mayes DO 8 mL/hr at 07/29/24 1121 80 [...] in 0.9 % sodium chloride 250 mL (Ksd-Pbhquq-Gbuty) (premix) 2-100 mcg/min IntraVENous Continuous Simone Momin DO 1.88 mL/hr at 07/29/24 1222 2 [...] at 07/29/24 0301 750 mL/hr at 07/29/24 030 PrismaSol BGK 4/2.5 CRRT solution 750 mL/hr [...] study with video was carried out at [facility]. Scalp electrodeswere positioned in person by an vascular technologist sonographer, following patient education, according to the 10-20 International system of electrode placement and maintained for integrity and quality of the recording. EEG data with video was recorded continuously and digitally stored. The vascular technologist sonographer reviewed all automated detections and manual events [...] delta-theta range (0.5- 6.5 Hz, 20-55 uV) jvldjmfng-hh-yrvwbrbovmnbwa slowing was seen unresponsive to stimulation. At times, intermixed generalized periodic discharges with triphasic morphology and oewgxhhg-tc-qnjztzlvu phase delay are observed(0.5-1.5 Hz, 70-120 uV). 12:25:37 -Continuous slowing, generalized + triphasic waves (Referential to average, LFF=1Hz, HFF=30Hz, Sens=5 uV/mm) INTERICTAL EPILEPTIFORM ACTIVITY: No epileptiform activity was seen. ICTAL ACTIVITY: No ictal activity was seen. NON-EPILEPTIC EVENTS: None ACTIVATION PROCEDURES: Photic stimulation was not performed. Hyperventilation was not performed. IMPRESSION AND ACTIONS TAKEN: This continuous EEG with video is abnormal. Continuous diffuse pnqtfwwl-zt-xbedno slowing is seen with intermixed triphasic waves. [...] from the original note were not included. [facility] EPILEPSY CENTER & EEG LABORATORY [address] [place] [address] CONTINUOUS LONG-TERM VIDEO EEG MONITORING REPORT Patient Name: Sandy Deng : 1960 Date of Study: 07/28/2024 Duration Recorded: 23:48:31 EEG#: [id number] OCCUPATIONAL THERAPIST: LIBRA Peters CLTM PROVIDER REQUESTING STUDY: Dr. Mahajan REASON FOR EXAM: Evaluate for epileptiform activity DIAGNOSIS TAG: Subdural Hemorrhage (SDH) HISTORY: Sandy Deng is a 63 y.o. female with history of COPD (3L O2 baseline), DM, CKD 4, HTN, CAD (PCI with stents in 2017). at bedside. Pt was admitted to [facility] due to confusion and hallucinations. Pt has had episodes of staring off into space per family. Was found to have a subdural hematoma. She reportedly had a fall 1 month ago from bed. states she hit her head on the nightstand. She is on Plavix and ASA for a stent placed 7 years ago. Pt tested positive for COVIDon 07/24. Today at [facility] ICU she had worsening hypoxia and was placed on NIV but failed. Was ultimately intubated. Noted to be hypotensive and started on levophed. Pt was transferred to [facility] for higher level of care. On arrival [...] q24h Kena Heath, DO 6 mg at 07/27/24 180 dextrose [...] in 0.9 % sodium chloride 250 mL (Ozx-Bbmnyw-Kvabk) (premix) 2-100 mcg/min IntraVENous Continuous Saif-Mario Albertoeli Sanchezag, DO 1.88 mL/hr at 07/28/24 1151 2 [...] study with video was carried out at [facility]. Scalp electrodeswere positioned in person by an vascular technologist sonographer, following patient education, according to the 10-20 International system of electrode placement and maintained for integrity and quality of the recording. EEG data with video was recorded continuously and digitally stored. The vascular technologist sonographer reviewed all automated detections and manual events [...] delta-theta range (0.5- 6.5 Hz, 20-55 uV) wyjdhlsjo-ip-mwaljdfkuhqmub slowing was seen unresponsive to stimulation. 12:04:28 -Continuous slowing, generalized (Referential to average, LFF=1Hz, HFF=30Hz, Sens=5 uV/mm) INTERICTAL EPILEPTIFORM ACTIVITY: No epileptiform activity was seen. ICTAL ACTIVITY: No ictal activity was seen. NON-EPILEPTIC EVENTS: None ACTIVATION PROCEDURES: Photic stimulation was not performed. Hyperventilation was not performed. IMPRESSION AND ACTIONS TAKEN: This continuous EEG with video is abnormal. Continuous diffuse krdfzjsi-io-qwupir slowing is seen unresponsive to stimulation. No interictal epileptiform activity nor seizures are observed. Compared with the previous day of recording, a cyclic alternating pattern of encephalopathy (CAPE) is no longer observed. These findings remain indicative of a potentially worsening tzsrbkrp-io-dkqshm global encephalopathy nonspecific as to etiology. Jasmeet Arevalo, PhD Clinical Neurophysiologist Armen Diaz MD PhD Epilepsy Attending * Armen Diaz MD PhD - 07/27/2024 1:43 PM EDTAssociated Order(s): EEG CONTINUOUS MONITORING Images from the original note were not included. [facility] EPILEPSY CENTER & EEG LABORATORY [address] [place] [id number] CONTINUOUS LONG-TERM VIDEO EEG MONITORING REPORT Patient Name: Sandy Deng : 1960 Date of Study: 07/27/2024 Duration Recorded: 10:39:13 EEG#: [id number] OCCUPATIONAL THERAPIST: LIBRA Peters CLTM PROVIDER REQUESTING STUDY: Dr. Mahajan REASON FOR EXAM: Evaluate for epileptiform activity DIAGNOSIS TAG: Subdural Hemorrhage (SDH) HISTORY: Sandy Deng is a 63 y.o. female with history of COPD (3L O2 baseline), DM, CKD 4, HTN, CAD (PCI with stents in 2017). at bedside. Pt was admitted to [facility] due to confusion and hallucinations. Pt has had episodes of staring off into space per family. Was found to have a subdural hematoma. She reportedly had a fall 1 month ago from bed. states she hit her head on the nightstand. She is on Plavix and ASA for a stent placed 7 years ago. Pt tested positive for COVIDon 07/24. Today at [facility] ICU she had worsening hypoxia and was placed on NIV but failed. Was ultimately intubated. Noted to be hypotensive and started on levophed. Pt was transferred to [facility] for higher level of care. On arrival [...] Kena Heath DO 6 mg at 07/26/24 202 dextrose 5 % infusion 100 mL/hr IntraVENous PRN Deacon Mazariegos MD dextrose 50 % solution 12.5 g 12.5 g IntraVENous PRN Deacon Mazariegos MD fentaNYL (Sublimaze) 1000 mcg in sodium chloride 0.9 % 100 mL 10 mcg/mL infusion 25-200 mcg/hr IntraVENous Continuous Clara Maeys DO 7.5 mL/hr at 07/27/24 0829 75 [...] BID Clara Mayes, DO 1 Application at 07/27/24 0933 naloxone (Narcan) injection 0.4 mg 0.4 mg IntraVENous q5 min PRN Colin Peoples MD norepinephrine (Levophed) infusion 16 mg in 0.9 % sodium chloride 250 mL (Xez-Gmctca-Praxv) (premix) 2-100 mcg/min IntraVENous Continuous Gregg-Mario Alberto Momin, DO 4.69 mL/hr at 07/27/24 1238 5 [...] Daily PRN Clara Mayes, DO PrismaSol BGK 2/3.5 CRRT solution 750 [...] study with video was carried out at [facility]. Scalp electrodeswere positioned in person by an vascular technologist sonographer, following patient education, according to the 10-20 International system of electrode placement and maintained for integrity and quality of the recording. EEG data with video was recorded continuously and digitally stored. The vascular technologist sonographer reviewed all automated detections and manual events [...] upper axial body and head, with subtle tpvp-fnm-ghkpp head movements at a frequency of 4 [...] abnormal states. State 1is characterized by continuous kejgngjf-yc-atrpah diffuse slowing. State 2 features lower amplitudeand [...] upper axial body and head, with subtle pvrt-uvd-ibrso head movements. This activity ended with a transition to CAP[place] State 2. The findings are supportive of a dcamsksw-st-iqbwbo global encephalopahy non- specific as to etiology. [...] documented as signed by this procedure note Wool Tamper: Dr. Knox The attending physician was physically [...] documented as signed by this procedure note Wool Tamper: Dr. Concepcion The attending physician was physically present while the proceduralist performed cantrell/critical components of the procedure. Attending: Dr. Concepcion Associated attestation - Mynor Concepcion DO - 07/27/2024 12:52 AM EDT I have reviewed and agree with the resident/fellow/TONJA note I was physically present for cantrell elements of the procedure Complications during procedure: None documented in this [facility]09-25-2024 [facility] 07-28-2024 Consult note* Shanti García RD - [...] loss Fluid Accumulation: No significant fluid accumulation Wall Cleaner Strength: Not Performed Nutrition Assessment: Pt is a 63-year-old female with multiple medical co-morbidities including Type I DM (on insulin pump), COPD on 4L home O2, CKD4, on ASA/Plavix who initially presented to [facility] on 07/23 withacute respiratory distress and acute delirium. 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 She was found to be hypoxic and hypercarbic, and COVID positive. She continued to be delirious and did not tolerate NIV, and required intubation 07/27/24. A CT head was done to evaluate her altered mental status, and she was found to have a small acute right sided SDH vs. epidural hematoma. For this reason, [facility] consulted for further neurologic management and she [...] On: Kcal/kg Weight Used for Energy Requirements: [place] Weight for Energy Calculation (kg): 59 kg Total Energy Requirements (kcals/day): 25-30 kcals/kg = 6163-6972 kcals/day Weight Used for Protein Requirements: [place] Weight in Kg Used for Protein Requirements: [...] lb 13.1 oz) Weight Source: Not Specified [place] Body Weight (lbs) (Calculated): 130 lbs [place] Body Weight (Kg) (Calculated): 59 kg % [place] Body Weight (Calculated): 81.4 % BMI (kg/m2) [...] soon to determine Shanti García RD,LD,CNSC Contact: *[phone] or Parkins[facility] Chat * Torito Keyshawn - 07/27/2024 2:11 PM EDTAssociated Order(s): IP CONSULT TO NEUROLOGY NEUROCRITICAL CARE CONSULT NOTE Patient Name: Sandy Deng Patient : 1960 Acct: [id number] Date of Admission: 07/26/2024 Room/Bed: T2213/[facility] A PCP: Bird Lujan Chief Complaint: encephalopathy [...] 6 mg, 6 mg, IntraVENous, q24h, Kena Heath, , 6 mg at 07/26/242026 dextrose 5 % infusion, 100 mL/hr, IntraVENous, PRN, Trumbull Yair MD dextrose 50 % solution 12.5 g, [...] in 0.9 % sodium chloride 250 mL (Opa-Vdztwk-Hlqzv) (premix), 2-100 mcg/min, IntraVENous, Continuous, Simone Momin [...] mL IVPB, 100 mg, IntraVENous, q24h, Kena Heath, sodium bicarbonate 150 mEq in sterile water 1,000 mL infusion, 75 mL/hr, IntraVENous, Continuous, Saroj Knox MD, Last Rate: 75 mL/hr at 07/27/24 0732, 75 mL/hr at 07/27/24 0732 sodium chloride 0.9 % bolus 30 mL, 30 mL, IntraVENous, PRN, Kena Heath, sodium chloride 0.9 % infusion, 75 mL/hr, IntraVENous, PRN, Clara Mayes DO Continuous Infusions: fentaNYL, 25-200 mcg/hr, Last Rate: 75 mcg/hr (07/27/24 0829) insulin regular, 1-50 Units/hr, Last Rate: Stopped (07/27/24 1315) norepinephrine, 2-100 mcg/min, Last Rate: 5 mcg/min (07/27/24 1405) PrismaSol BGK 2/3.5, 750 mL/hr, Last Rate: 750 mL/hr (07/27/24 0935) PrismaSol BGK 2/3.5, 750 mL/hr, Last Rate: 750 mL/hr (07/27/24 0935) PrismaSol BGK 2/3.5, 750 mL/hr, Last Rate: [...] 448 ms QTC Interval 459 ms P [place] 82 degrees QRS [place] -71 degrees T Wave [place] 88 degrees [place] Interval 98 ms Procalcitonin Test Collection Time: [...] 66 ALT 19 AST 28 BILITOT 0.3 @BRIEFLAB([facility]) ABGs:)No results for input(s): PH, PO2, [...] consulted. Per report, patient initially presented to [facility] with respiratory distress and delirium.She was [...] 448 ms QTC Interval 459 ms P [place] 82 degrees QRS [place] -71 degrees T Wave [place] 88 degrees [place] Interval 98 ms Procalcitonin Test Collection Time: [...] sign-off at this time Romero Wright MD [facility] Neurosurgery I spent 60 minutes of my independent time evaluating the patient, reviewing the medical record, andcounseling/coordinating care regarding her acute SDH. * Karyn Jones MD - 07/27/2024 10:12 AM EDTAssociated Order(s): IP CONSULT TO NEPHROLOGY Images from the original note were not included. Initial Nephrology Consult Note Patient: Sandy Deng Room number: T2-213/T2 A Date of Admit: 07/26/2024 LOS: 1 days Referring physician: Kena Heath DO Outpatient Deputy Head: Christy Huerta Reason for Consult: Asked to [...] 4 - follows with Dr Christy Huerta ([place]). - On review of available labs, Cr has been 2.4-2.8, last (04/26) Cr 2.4 eGFR 20, 24 hr sbdcoyq=8870 mg. - Home med includes losartan 25 [...] 7. Acute resp failure/COVID - intubated, per [facility] - remdesivir/steroids/cefepime 8. Altered MS R SDH [...] epidural hematoma and patient was transferred to [facility]. She was placed on levophed. Initial labs [...] 4 - follows with Dr Christy Huerta ([place]). On review of available labs, Cr has been 2.4-2.8, last (04/26) Cr 2.4 eGFR 20, 24 hr rifvkdn=1702 mg. Home med includes losartan 25 mg [...] 5-50 mcg/kg/min, Last Rate: 15 mcg/kg/min (07/27/24 08) sodium bicarbonate 150 mEq in sterile water [...] IRON, TIBC, FERRITIN No results found for: [id number], FOLATE Recent Labs 07/26/24184907/27/24 0530 NA 125* [...] studies and notes. Karyn Jones MD Pager [phone] [facility] [phone] Greater than 65 min of time spent on prepping chart, reviewing outpt pcp/cardiology consultants notes/cumulative labs, imaging, FTF time, interpretation of [...] 2017). at bedside. Pt was admitted to [place] due to confusion and hallucinations. Pt has had episodes of staring off into space per family. Was found to have a subdural hematoma. She reportedly had a fall 1 month ago from bed. states she hit her head on the nightstand. She is on Plavix and ASA for a stent placed 7 years ago. Pt tested positive for COVID on 07/24. Today at [place] ICU she had worsening hypoxia and was placed on NIV but failed. Was ultimately intubated. Noted to be hypotensive and started on levophed. Pt was transferred to [facility] for higher level of care. On arrival [...] kg (105 lb 13.1 oz) SpO2 99% Cardiac examination significant for: Regular rate and rhythm Pulmonary examination significant for: Crackles Capillary refill is: brisk Peripheral Pulse is: 2+ Skin is: Normal Sajennifer-Mario Alberto Merrill, DO Past Medical History: Diagnosis Date COPD [...] Normal [] Scar/Lesion/Mass Inspection of teeth/lips/gums Dentition: [x][place] Teeth []Dentures Lips/Gums: [x]Intact []Lesion Present Mucosa: [x][place] [x]Moist []Dry Neck: External Appearance Overall Appearance: [...] within last 24 hours- BMP: Recent Labs 07/26/24 185 NA 125* K 5.5* CL 98 CO2 17* BUN 76* CREATININE 4.56* CALCIUM 5.5* MG 1.5* PHOS 8.5* LFTs: Recent Labs 07/26/24 185 AST 40 ALT 21 PROT 5.5* ALBUMIN 2.9* BILITOT 0.5 ALKPHOS 68 Glucose: Recent Labs 07/26/24 185 GLUCOSE 252* Procal: Recent Labs 07/26/241849 PROCAL 2.48* CBC: Recent Labs 07/26/241849 WBC 18.7* HGB 10.1* HCT 31.3* PLT 244 MCV 88.7 RDW 15.5* Lactic Acid: Recent Labs 07/26/24 185 LACTATE 0.9 Cardiac Injury Profile: Recent Labs 07/26/24 185 TROPONINI 0.013 Imaging- CT head IMPRESSION: Stable [...] and Plan: Principal Problem: SDH (subdural hematoma) ([facility]) Active Problems: COPD (chronic obstructive pulmonary [...] AM EDT I have personally performed a qjut-yq-nepl diagnostic evaluation on this patient on date of hjxjtey86/23/24. History, labs, imaging studies, and electronic medical record have been reviewed by me. This note documented by the [x]charhouse worker []TONJA reflects my history, exam, and medical decision making. I have reviewed and agree with the care plan. Changes were made in the orders as necessary. ROS documentation was reviewed and negative unless otherwise stated in HPI. Assessment: Acute hypoxic, hypercapnic respiratory failure COVID19 pneumonia Acute metabolic encephalopathy R SDH, small/subacute Severe NAGMA UMA/CKD [facility] Add COVID19 rx incl decadron, remdes -->confirm COVID19 result from [facility] Follow-up micro studies and adjust abx Concern [...] failure is 35 minutes. documented in this [facility]09-24-2024 [facility] 07-27-2024 NoteAcceptable Specimen? Acceptable Specimen(Evaluation not needed) Gram Stain 3+ White Blood Cells No Epithelial cells 3+ Gram positive cocci 1+ Gram negative rodsKing'S Daughters Medical Center OhioComment on above:Performed By: #### M100.2400, M100.1999 ####[facility] [place] [id number] [place], [phone] [facility] 07-26-2024 [facility]09-23-2024 [facility] 07-26-2024 History and physical note* Deacon Mazariegos MD - 07/26/2024 4:37 PM EDT Images from the original note were not included. [facility] SICU H&P 07/26/2024 6:01 PM Attending: Dr. Holbrook Chief Complaint: Brain Bleed History of Present Illness: 63 y.o. female presented to [place] [facility] ED with confusion since the prior night [...] ADDENDUM I personally supervised the resident or CONTRACTING ANALYST/STACY in the evaluation and development of a [...] CKD, on ASA/Plavix who initially presented to [facility] on 07/23 (3 days ago) with [...] sided SDH vs.epidural hematoma. For this reason, [facility] consulted for further neurologic management and she was transferred to SICU. I spoke to the patient's , son, and sister who were present at the patient's bedside. They report that leading up to her visit to [place] ED she was acting delirious and frequently getting outof bed in the middle of night. She may have hit her head during one of these episodes, however she did not have a fall or witnessed head trauma during her brief hospitalization at [place] [facility] [place]. I reviewed [facility] head [facility] [...] SDH, and I personally spoke to Dr. Wrgiht on the phone and discussed her CT [...] MD Division of Trauma Department of Surgery [facility] documented in this [facility]09-23-2024 [facility]07-18-2023 [facility] - Reported* ChiefComplaintFreeTextNoteForm_: * Kidney transplant surgical evaluation for potential active candidacy on kidney transplant list [id number] [address] Work Phone: Evaluation note* Diagnosis Onset Date Resolution Status CKD (chronic kidney disease) stage 4, GFR 15-29 ml/min chronic Diabetes chronic Essential (primary) hypertension chronic Tobacco abuse [facility] Work Phone: Evaluation note* Diagnosis Onset Date Resolution Status CKD (chronic kidney disease) stage 4, GFR 15-29 ml/min chronic Diabetes chronic Essential (primary) hypertension chronic Tobacco abuse chronic Chronic obstructive pulmonary disease chronic Smoking greater than 30 pack years [facility] Work Phone: Evaluation note* Diagnosis Onset Date Resolution Status Chronic obstructive pulmonary disease chronic Respiratory failure with hypoxia chronic Smoking greater than 30 pack years chronic Fissure in skin of foot acut e CKD (chronic kidney disease) stage 4, GFR 15-29 ml/min chronic DM type 1 (diabetes mellitus, type 1) chronic Tobacco abuse [facility] Work Phone: evaluation note* Diagnosis Onset Date Resolution Status Fissure in skin of foot acut e CKD (chronic kidney disease) stage 4, GFR 15-29 ml/min chronic DM type 1 (diabetes mellitus, type 1) chronic Tobacco abuse chronic Chronic obstructive pulmonary disease chronic Smoking greater than 30 pack years 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 Work Phone: evaluation note* Diagnosis Onset Date Resolution Status Atherosclerosis of coronary artery of [place] without angina pectoris chronic Chronic obstructive pulmonary disease chronic Cigarette nicotine dependence chronic Atherosclerosis of coronary artery of [place] without angina pectoris chronic Essential (primary) hypertension chronic Hyperlipidemia [facility] Work Phone: evaluation note* Diagnosis Onset Date Resolution Status Atherosclerosis of coronary artery of [place] without angina pectoris chronic Essential (primary) hypertension chronic Hyperlipidemia [facility] Work Phone: evaluation note* Diagnosis Onset Date Resolution Status Lung nodule, solitary acute Chronic obstructive pulmonary disease chronic Smoking greater than 30 pack years chronic CKD (chronic kidney disease) stage 4, GFR 15-29 ml/min chronic DM type 1 (diabetes mellitus, type 1) [facility] Work Phone: Evaluation note* Diagnosis Onset Date Resolution Status CKD (chronic kidney disease) stage 4, GFR 15-29 ml/min chronic DM type 1 (diabetes mellitus, type 1) [facility] Work Phone: evaluation note* Diagnosis Onset Date Resolution Status CKD (chronic kidney disease) stage 4, GFR 15-29 ml/min chronic DM type 1 (diabetes mellitus, type 1) chronic Lung nodule, solitary acute Chronic obstructive pulmonary disease chronic Respiratory failure with hypoxia [facility] Work Phone: evaluation note* Diagnosis Onset Date Resolution Status Lung nodule, solitary acute Chronic obstructive pulmonary disease chronic Respiratory failure with hypoxia chronic Atherosclerosis of coronary artery of [place] without angina pectoris chronic Essential (primary) hypertension chronic Hyperlipidemia [facility] Work Phone: evaluation note* Diagnosis Onset Date Resolution Status Lung nodule, solitary acute Chronic obstructive pulmonary disease chronic Respiratory failure with hypoxia chronic Atherosclerosis of coronary artery of [place] without angina pectoris chronic Essential (primary) hypertension chronic Hyperlipidemia chronic Body mass index (BMI) less than 16.5 chronic CKD (chronic kidney disease) stage 4, GFR 15-29 ml/min chronic DM type 1 (diabetes mellitus, type 1) chronic Nicotine abuse chronic Polyneuropathy due to type 1 diabetes mellitus [facility] Work Phone: Evaluation note* Diagnosis Onset Date Resolution Status Lung nodule, solitary acute Chronic obstructive pulmonary disease chronic Respiratory failure with hypoxia chronic Atherosclerosis of coronary artery of [place] without angina pectoris chronic Essential (primary) [...] Nicotine abuse chronic Respiratory failure with hypoxia [facility] Work Phone: evaluation note* Diagnosis Onset Date Resolution Status Atherosclerosis of coronary artery of [place] without angina pectoris chronic Essential (primary) [...] Nicotine abuse chronic Respiratory failure with hypoxia [facility] Work Phone: evaluation note* Diagnosis SDH (subdural hematoma) (HCC)- Primary Subdural hemorrhage SDH (subdural hematoma) (HCC) Subdural hemorrhage Stage 4 chronic kidney disease (HCC) COPD (chronic obstructive pulmonary disease) (HCC) Chronic airway obstruction, not elsewhere classified Type 1 diabetes mellitus with kidney complication (HCC) Hyperlipidemia Other and unspecified hyperlipidemia Diabetic neuropathy associated with type 1 diabetes mellitus (HCC) [facility]* Diagnosis SDH (subdural hematoma) (HCC) Subdural hemorrhage documented in this encounter [facility]* Diagnosis Hypercapnic respiratory failure (HCC)- Primary Hypercapnic respiratory failure (HCC) Chronic obstructive pulmonary disease, unspecified COPD type (HCC) documented in this encounter [facility]* Diagnosis Chronic respiratory failure with hypoxia and hypercapnia (HCC) [J96.11, J96.12]- Primary Centrilobular emphysema (HCC) [J43.2] Bilateral pleural effusion [J90] Unspecified pleural effusion Hx of bacterial pneumonia [Z87.01] Cigarette nicotine dependence without complication [F17.210] documented in this encounter [facility]* Diagnosis Chronic respiratory failure with hypoxia and hypercapnia (HCC) [J96.11, J96.12]- Primary Centrilobular emphysema (HCC) [J43.2] History of recent pneumonia [Z87.01] Other dysphagia [R13.19] Other dysphagia documented in this encounter [facility]* Diagnosis Chronic respiratory failure with hypoxia and hypercapnia (HCC) [J96.11, J96.12]- Primary Centrilobular emphysema (HCC) [J43.2] Other dysphagia [R13.19] Other dysphagia Hx of bacterial pneumonia [Z87.01] documented in this encounter [facility]* Diagnosis SDH (subdural hematoma) (HCC)- [...] Lujan. * Referral: Dr. Christy Huerta (tel: [phone] fax: [phone]). * I am seeing SANDY DENG at the referring provider's request for surgical suitability for renaltransplant candidate listing at [facility] [place]. * History of Present Illness Comments: Ms. [...] Information: * Dr. Viraj No is her Gas Leak Inspector. * Insulin use for 22 years * [...] * She was not seen by a Nursing Home Aide. * Psych History: * No history * Psychosocial: * Smoking: yes, takes Bupropion. She is cutting back and now smokes 3 cigarettes per day. She has a 50 pack/year history. * Marijuana/Illicits: No * Alcohol: no * Financial: * She is retired. 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 * [...] is vaccinated against COVID-19 but not boosted. [id number] [address] Work Phone: Hospital Discharge instructionsAdditional [...] worsen. Zofran as needed for nausea and vomiting.[facility] [place] Work Phone: Reason for referral (narrative)No reason for referral information availableWSelect Medical [facility] Work Phone: Chief Complaint and Reason for [...] diabetes mellitus Atherosclerosis of coronary artery of [place] without angina pectoris Chronic obstructive pulmonary disease Cigarette nicotine dependence Chief Complaint 3 M FU CP CP Amb Documentation Amb Documentation OVERDUE FOR OV (2020) COPD COPD Reason for Visit Atherosclerosis of c oronary artery of [place] without angina pectoris Chronic obstructive pulmonary disease Cigarette nicotine dependence Atherosclerosis of coronary artery of [place] without angina pectoris Essential (primary) hypertension Hyperlipidemia Chief Complaint 3 M FU CP CP Amb Documentation Amb Documentation OVERDUE FOR OV (2020) COPD COPD SMOKER Reason for Visit Atherosclerosis of c oronary artery of [place] without angina pectoris Chronic obstructive pulmonary disease Cigarette nicotine dependence Atherosclerosis of coronary artery of [place] without angina pectoris Essential (primary) hypertension Hyperlipidemia Chief Complaint CP CP Amb Documentation Amb Documentation OVERDUE FOR OV (2020) COPD COPD SMOKER COPD COPD Reason for Visit Atherosclerosis of c oronary artery of [place] without angina pectoris Essential (primary) hypertension [...] with hypoxia Atherosclerosis of coronary artery of [place] without angina pectoris Essential (primary) hypertension Hyperlipidemia Chief Complaint FLANK PAIN, ABD PAIN 3 M FU 6 M FU 3 M FU RENAL,PTH, CBC Reason for Visit Lung nodule, solitar y Chronic obstructive pulmonary disease Respiratory failure with hypoxia Atherosclerosis of coronary artery of [place] without angina pectoris Essential (primary) hypertension [...] with hypoxia Atherosclerosis of coronary artery of [place] without angina pectoris Essential (primary) hypertension [...] Visit Atherosclerosis of c oronary artery of [place] without angina pectoris Essential (primary) hypertension [...] DM type 1 (diabetes mellitus, type 1) De sunilber 2023 1:39pm Hypertension October 07, 2024 1 :39pm Insulin pump titration October 07 1:39pm Osteoporosis October 07, 2024 1 :39pm Presence of insulin pump October 07, 2 024 1:39pm Underweight October 07, 2024 1 :39pm Hypercarbia November 04, 2024 3: 09pm Lung nodule, multiple November 04, 2024 3:09pm Chronic hypoxic respiratory failure Carlos Alberto tran 2024 3:09pm Chronic obstructive pulmonary disease Jereimas dobbs 2024 3:09pm ESRD on hemodialysis November 04, 2024 3 :09pm Hypertension November 04, 2024 3: 09pm ESRD (end stage renal disease) on dialys is December 02, 2024 2:26pm Atherosclerosis of coronary artery of [place] without angina pectoris December 16, 2024 [...] DM type 1 (diabetes mellitus, type 1) [facility] 2024 11:39pm Hypertension January 03, 2025 11:3 9pm Acute hyperkalemia January 03, 2025 11:3 9pm Chronic hypoxemic respiratory failure [facility] 2024 11:39pm AV fistula January 11, [...] 2024 2:26pm Atherosclerosis of coronary artery of [place] without angina pectoris December 16, 2024 [...] DM type 1 (diabetes mellitus, type 1) [facility] 2024 11:39pm Hypertension January 03, 2025 11:3 9pm Acute hyperkalemia January 03, 2025 11:3 9pm Chronic hypoxemic respiratory failure [facility] 2024 11:39pm AV fistula January 11, 2025 2:5 5pm DM type 1 (diabetes mellitus, type 1) [facility] 2024 8:40am High cholesterol January 27, [...] Admit Date Atherosclerosis of coronary artery of [place] without angina pectoris December 16, 2024 [...] DM type 1 (diabetes mellitus, type 1) [facility] 2024 11:39pm Hypertension January 03, 2025 11:3 9pm Acute hyperkalemia January 03, 2025 11:3 9pm Chronic hypoxemic respiratory failure [facility] 2024 11:39pm AV fistula January 11, 2025 2:5 5pm DM type 1 (diabetes mellitus, type 1) [facility] 2024 8:40am High cholesterol January 27, [...] January 112024 2:55pm 3 M FU, RS /January 27, 2025 8:4 0am 10 WK FU March 22, 2025 12:59 pm E-ORDER April 09, 2025 10:44 am abn labs April 09, 2025 12:22 pm gen weakness back pain May 08, 2025 7: 59am Reason for Visit Admit Date AV fistula January 11, 2025 2:5 5pm DM type 1 (diabetes mellitus, type 1) [facility] 2024 8:40am High cholesterol January 27, [...] DM type 1 (diabetes mellitus, type 1) [facility] 2024 8:40am High cholesterol January 27, [...] 2025 8:42am Chronic obstructive pulmonary disease Ju 2024 8:42am ESRD on hemodialysis May 18, 2025 8:4 2am Hypertension May 18, 2025 8:42 am Chief Complaint Admit Date 3 M FU, RS 01/06January 27, 2025 8:4 0am 10 WK FU March 22, 2025 12:59 pm E-ORDER April 09, 2025 10:44 am abn labs April 09, 2025 12:22 pm gen weakness back pain May 08, 2025 7: 59am 3 M FU May 18, 2025 8:42 am LOW POTASSIUM May 20, 2025 8:20 pm Reason for Visit Admit Date DM type 1 (diabetes mellitus, type 1) [facility] 2024 8:40am High cholesterol January 27, [...] on hemodialysis May 18, 2025 8:4 2am Family History No Family History Records Found [...] Will No August 26 8:15pm Power of Market Analysis Director No August 26, 2020 8:15pm Advance Directive Response Recorded Date/ Time Advance Directives No February 04 7:01am Living Will No August 26 7:15pm Power of Market Analysis Director No August 26, 2020 7:15pm Date Activated [...] Do you have a Healthcare Power of Market Analysis Director? No August 26, 2020 8:15pm Living Will No April 14, 2024 10:45pm Do you have a Healthcare Power of Market Analysis Director? No April 14, 2024 10:45pm Advance Directives No January 10 025 9:10am Living Will No July 24, 2024 12:39am Do you have a Healthcare Power of Market Analysis Director? No July 24, 2024 12:39am Living Will No November 20 8:06pm Do you have a Healthcare Power of Market Analysis Director? No November 20, 2024 8:06pm Living Will No December 14 2:25pm Do you have a Healthcare Power of Market Analysis Director? No December 14, 2024 2:25pm Living Will No January 04, 2025 1:39am Do you have a Healthcare Power of Market Analysis Director? No January 04, 2025 1:39am Advance Directive Response Recorded Date/ Time Living Will No April 14, 2024 10:45pm Do you have a Healthcare Power of Market Analysis Director? No April 14, 2024 10:45pm Advance Directives No January 10 025 9:10am Living Will No December 14 2:25pm Do you have a Healthcare Power of Market Analysis Director? No December 14, 2024 2:25pm Living Will No January 04, 2025 1:39am Do you have a Healthcare Power of Market Analysis Director? No January 04, 2025 1:39am Advance Directive Response Recorded Date/ Time Living Will No April 14, 2024 10:45pm Do you have a Healthcare Power of Market Analysis Director? No April 14, 2024 10:45pm Advance Directives No January 10 025 9:10am Living Will No December 14 2:25pm Do you have a Healthcare Power of Market Analysis Director? No December 14, 2024 2:25pm Living Will No January 04, 2025 1:39am Do you have a Healthcare Power of Market Analysis Director? No January 04, 2025 1:39am Do you have a Healthcare Power of Market Analysis Director? No April 09, 2025 12:26pm Advance Directive Response Recorded Date/ Time Advance Directives No January 10 9:10am Do you have a Healthcare Power of Market Analysis Director? No April 09, 2025 12:26pm Do you have a Healthcare Power of Market Analysis Director? No May 08, 2025 8:07am Advance Directive Response Recorded Date/ Time Do you have a Healthcare Power of Market Analysis Director? No April 09, 2025 12:26pm Do you have a Healthcare Power of Market Analysis Director? No May 08, 2025 8:07am Advance Directives No January 10 9:10am Advance Directive Response Recorded Date/ Time Do you have a Healthcare Power of Market Analysis Director? No May 20, 2025 9:31pm Do you have a Healthcare Power of Market Analysis Director? No April 09, 2025 12:26pm Do you have a Healthcare Power of Market Analysis Director? No May 08, 2025 8:07am Advance Directives No January 10 9:10am Summary Purpose Reason for Referral Specialty Diagnoses / Procedures Referred By Contac t Referred To Contact Radiology Diagnoses SDH (subdural hematoma) (HCC) Procedures CT head wo IV contrast Madeline Montalvo, CONTRACTING ANALYST - COUNCILPERSON [address] [place] [address] Referral ID Status Reason Start Date Expiration Date V isits Requested Visits Authorized [id number] Authorized 07/27/2024 07/27/2025 1 1 Specialty Diagnoses / Procedures Referred By Contac t Referred To Contact Radiology Diagnoses SDH (subdural hematoma) (HCC) Procedures CT head wo IV contrast Elieser Solis MD [address] [place] [address] Referral ID Status Reason Start Date Expiration Date Visits Re quested Visits Authorized [id number] Closed 07/27/2024 09/10/2024 1 1 Additional Source [...] DATE CREATED AUTHOR AUTHOR'S ORGANIZ ATION 06/03/2022 [facility] DATE CREATED AUTHOR AUTHOR'S ORGANIZ ATION 12/18/2024 [facility] DATE CREATED AUTHOR AUTHOR'S ORGANIZ ATION 12/31/2024 [facility] DATE CREATED AUTHOR AUTHOR'S ORGANIZ ATION 05/25/2025 [facility] Care Teams (unrecognized sec tion and content) [...] Refe rring Provider Active Jeanna Davis NP, BOARDING ROOM FIXER-C Attending Provider Active Team Status: Active Member [...] MD Primary Care Provider Activ e Radha Sanhdu PA, PA Attending Provider, Referr ing Provider Active Team Status: Inactive Member Role Status Dates Dr. Sin Lujan MD Primary Care Provider, Refe rring Provider Active Radha Sandhu PA, PA Attending Provider Active Team Status: Active Member Role Status Dates Dr. Sin Lujan MD Primary Care Provider Activ e Heidi Russell Attending Provider Active Team Status: Active Member Role Status Dates Jeanna Davis BOARDING ROOM FIXER, BOARDING ROOM FIXER-C Referring Provider, Other Pr ovider Active Dr. Sin Lujan MD Primary Care Provider Activ e Dr. Rios Cordova MD Attending Provider Active Team Status: Inactive Member Role Status Dates Jeanna Davis BOARDING ROOM FIXER, BOARDING ROOM FIXER-C Attending Provider, Referrin g Provider Active Dr. Sin Lujan MD Primary Care Provider Activ e Team Status: Inactive Member Role Status Dates Dr. Sin Lujan MD Primary Care Provider Activ e Dr. Christy Huerta DO Attending Provider Active Team Status: Active Member Role Status Dates Jeanna Davis BOARDING ROOM FIXER, BOARDING ROOM FIXER-C Referring Provider, Other Pr ovider Active Dr. [...] Primary Care Provider Activ e Jeanna Davis BOARDING ROOM FIXER, BOARDING ROOM FIXER-C Attending Provider Active Team Status: Inactive Member Role Status Dates Dr. Sin Lujan MD Primary Care Provider, Refe rring Provider Active Kena Sandy BOARDING ROOM FIXER, BOARDING ROOM FIXER-C Attending Provider Active Team Status: Inactive Member Role Status Dates Dr. Sin Lujan MD Primary Care Provider Activ e Jeanna Davis BOARDING ROOM FIXER, BOARDING ROOM FIXER-C Attending Provider, Referrin g Provider Active Team Status: Active Member Role Status Dates Dr. Bird Lujan MD Family Provider Active Dr. Bird Lujan MD Primary Care Provider Acti ve Team Status: Inactive Member Role Status Dates Dr. Bird Lujan MD Primary Care Provider, Ref erring Provider Active Kena Sandy BOARDING ROOM FIXER, BOARDING ROOM FIXER-C Attending Provider Active Team Status: Inactive Member Role Status Dates Dr. Bird Lujan MD Primary Care Provider, Ref erring Provider Active Brenda Medrano BOARDING ROOM FIXER-C Attending Provider Active Team Status: Inactive Member Role Status Dates Dr. Bird Lujan MD Primary Care Provider, Ref erring Provider Active Jeanna Davis BOARDING ROOM FIXER, BOARDING ROOM FIXER-C Attending Provider Active Team Status: Inactive Member Role Status Dates Dr. Bird Lujan MD Primary Care Provider Acti ve Dr. Christy Huerta DO Attending Provider Active Team Status: Inactive Member Role Status Dates Dr. Bird Lujan MD Primary Care Provider Acti ve Jeanna Davis BOARDING ROOM FIXER, BOARDING ROOM FIXER-C Attending Provider, Referrin g Provider Active Team Status: Inactive Member Role Status Dates Dr. Bird Lujan MD Primary Care Provider Acti ve Dr. Sherice Skelton , DPM Attending Provider, Referring Pr ovider Active Cellar Supervisor Relationship Specialty Start Date End Date Bird Lujan [address] [place] [address] PCP - General Family Medicine 07/26/24 Cellar Supervisor Relationship Specialty Start Date End Date Bird Lujan [address] [place] [address] PCP - General Family Medicine 07/26/24 Param Sousa, RN Registered Nurse Litigation Examiner Manager 08/11/24 Cellar Supervisor Relationship Specialty Start Date End Date Bird Lujan [address] [place] [address] PCP - General Family Medicine 07/26/24 Param Sousa, RN Registered Nurse Litigation Examiner Manager 08/11/2409/26 Cellar Supervisor Relationship Specialty Start Date End Date Bird Lujan [address] [place] [address] PCP - General Family Medicine 07/26/24 Cellar Supervisor Relationship Specialty Start Date End Date Bird Lujan [address] [place] [address] PCP - General Family Medicine 07/26/24 Cellar Supervisor Relationship Specialty Start Date End Date Bird Lujan [address] [facility] [address] [place] [address] PCP - General Family Medicine 07/26/24 Param Sousa, BO Registered Nurse Litigation Examiner Manager 08/11/2409/26 Cellar Supervisor Relationship Specialty Start Date End Date Bird Lujan MD [address] [facility], [place] [id number] PCP - General 10/17/08 Team Status: Active [...] 2024 End: October 16, 2024 Jeanna Davis BOARDING ROOM FIXER, BOARDING ROOM FIXER-C Attending Provider Active Start: October 16, 2024 End: October 16, 2024 Jeanna Davis BOARDING ROOM FIXER, BOARDING ROOM FIXER-C Referring Provider Active Start: October 16, 2024 [...] 2024 End: November 04, 2024 Jeanna Davis BOARDING ROOM FIXER, BOARDING ROOM FIXER-C Attending Provider Active Start: November 04, 2024 [...] End: December 16, 2024 Mynor Anthony NP, BOARDING ROOM FIXER-C Attending Provider Active S tart: December 16, [...] End: January 06, 2025 Dr. Christy Huerta , Other Provider Active Sta rt: January 03, [...] January 04, 2025 Dr. Ezio Frias , DO Other Provider Active St art: January 04, 2025 Dr. Fernanda Deleon MD Other Provider Active Start: January 04, 2025 Dr. Krys Wick MD Other Provider Active St art: January 04, 2025 Dr. John Dash , Other Provider Active Start: January 04, 2025 [...] End: January 11, 2025 Jeanna Davis NP, BOARDING ROOM FIXER-C Attending Provider Active Start: January 11, 2025 End: January 11, 2025 Jeanna Davis BOARDING ROOM FIXER, BOARDING ROOM FIXER-C Referring Provider Active Start: January 11, 2025 [...] 2025 End: January 11, 2025 Jeanna Davis BOARDING ROOM FIXER, BOARDING ROOM FIXER-C Attending Provider Active Start: January 11, 2025 End: January 11, 2025 Jeanna Davis BOARDING ROOM FIXER, BOARDING ROOM FIXER-C Referring Provider Active Start: January 11, 2025 [...] End: May 08, 2025 Dr. Justin Parisi , DO Emergency Provider Activ e Start: May 08, 2025 End: May 08, 2025 Team Status: Inactive Member Role/Relationship Status Dates Dr. Bird Lujan MD Primary Care Provider Acti ve Start: May 18, 2025 End: May 18, 2025 Dr. Bird Lujan MD Referring Provider Active Start: May 18, 2025 End: May 18, 2025 Irais Justice , BOARDING ROOM FIXER-C Attending Provider Active Start: May 18, 2025 End: May 18, 2025 Team Status: Inactive Member Role/Relationship Status Dates Dr. Bird Lujan MD Primary Care Provider Acti ve Start: May 20, 2025 End: May 20, 2025 Dr. Alonzo Edwards , Emergency Provider Active S tart: May 20, 2025 End: May 20, 2025 Reason for Visit (unrecogniz ed section and content) Specialty Diagnoses / Procedures Referred By Contac t Referred To Contact Diagnoses SDH (subdural hematoma) (HCC) brain bleed Procedures [id number] Ino Conte MD [address] [place] [phone] [address] [place] [address] Referral ID Status Reason Start Date Expiration Date Visits Re quested Visits Authorized [id number] 1 1 Specialty Diagnoses / Procedures Referred By Contac t Referred To Contact Radiology Diagnoses SDH (subdural hematoma) (HCC) Procedures CT head wo IV contrast Elieser Solis MD [address] [place] [address] [address] [place] [address] Referral ID Status Reason Start Date Expiration Date Visits Re quested Visits Authorized [id number] Closed 07/27/2024 09/10/2024 1 1 Reason Comments [...] Tyler MD [address] [place] [address] Phone: tel: fax: [facility] Medical Intensive Care Unit [address] [place] [address] Phone: tel: Referral ID Status Reason Start Date Expiration Date Visits Re quested Visits Authorized [id number] 1 1 Reason Comments Referral - Kidney Txp Scheduled Active and Recently Administ ered Medications (unrecognized section and content) Medication Order 08/08/2024 08/09/2024 08/10/2024 busPIRone (Buspar) tablet 7.5 mg 7.5 mg, Oral, 2 times daily, First dose on 08/02/24 at 1330 0845 (Given - Provider: Blue Middleton RN)2127 (Given - Provider: Joycelyn Welch RN) 0917 (Given - Provider: Chava Rodriguez)2052 (Given - Provider: Joycelyn Welch RN) 1319 [...] Rodriguez) 0900 (Not Given - Provider: Jim Rodriguez, BO - Reason: Patient/family refused) fluticasone (Flonase) nasal spray 2 spray (COMPLETED) 2 spray, Each Nostril, Once, On Fri08/08/24 at 0115, For 1 dose, Shake gently. Before first use, prime pump (press 6 times until fine spray appears). After use, clean tip and replace cap. 0107 (Given - Provider: Gloria Vides RN) furosemide (Lasix) injection 80 mg (COMPLETED) 80 mg, IntraVENous, Once, On Fri08/09/24 at 1245, For 1 dose 1302 (Given - Provider: Blue Middleton RN) gabapentin (Neurontin) capsule 200 mg 200 mg, Oral, 2 times daily, First dose on Fri08/04/24 at 0900 0845 (Given - Provider: Blue Middleton RN)2126 (Given - Provider: Joycelyn Welch RN) 0854 (Given - Provider: Blue Middleton RN)2051 (Given - Provider: Joycelyn Welch RN) 1318 (Given - Provider: Jim Rodriguez, BO - Comment: at dialysis) Glycopyrrolate-Formot aftab (Bevespi Aerosphere) 9-4.8 MCG/ACT inhaler 2 puff 2 puff, Inhalation, 2 times daily, First dose on Fri07/26/24 at 2000 0846 (Given - Provider: Blue Middleton RN)2126 (Given - Provider: Joycelyn Welch RN) 09 (Given - Provider: Chava Rodriguez)2054 (Given - Provider: Joycelyn Welch RN) 1324 (Given - Provider: Jim Rodriguez, BO - Comment: at dialysis) heparin injection 5,000 [...] physician order. 2052 (Given - Provider: Joycelyn Welch, BO) insulin glargine (Lantus) injection 5 Units (CANCELED) [...] Blue Middleton RN)1153 (Given - Provider: Blue Middleton RN)1700 (Given - Provider: Blue Middleton RN) 0800 (Given - Provider: Blue Middleton RN)1302 (Given - Provider: Blue Middleton RN)1756 (Given - Provider: Blue Middleton RN) 0800 (Not Given - Provider: Jim [...] 350-400 10 Units Above 400 12 Units 2125 (Given - Provider: Joycelyn Welch RN) 2052 (Given - Provider: Joycelyn Welch RN) ipratropium-albuterol (Duo-Neb) 0.5-2.5 mg/3 mL nebulizer solution 3 mL 3 mL, Nebulization, 3 times daily, First dose (after last modification) on Fri08/07/24 at 1400 0848 (Given - Provider: Sangeeta Rouse RCP)1344 (Given - Provider: Sangeeta Rouse RCP)2030 (Given - Provider: Daina Carvalho, JUDE) 0905 (Given - Provider: Mary Mcintosh, CLOTHING SORTER)1433 (Given - Provider: Mary Mcintosh, CLOTHING SORTER)2239 (Given - Provider: Marylu Montanez RCP) 0806 (Given - Provider: Eren Mckeon RCP)1200 (Not Given - Provider: Eren Mckeon RCP - Reason: Patient not available - Comment: dialysis) metoprolol tartrate (Lopressor) tablet 50 mg 50 mg, Oral, 2 times daily, First dose on Fri08/02/24 at 1330, On hold since Fri08/05/2024 at 0248 until manually unheld 0900 (Dose Auto Held - Provider: Ana Rosa Carlin DO)2100 (Dose Auto Held - Provider: Ana Rosa Carlin DO) 0900 (Dose Auto Held - Provider: Ana Rosa Carlin DO)2100 (Dose Auto Held - Provider: Ana Rosa Carlin DO) 0900 (Dose Auto Held - Provider: Aan Rosa Carlin DO)1640 (Unheld by provider - Provider: Automatic Discharge Provider) mirtazapine (Remeron) tablet 7.5 mg 7.5 mg, Oral, Nightly, First dose (after last modification) on Fri08/05/24 at 2100 212 (Given - Provider: Joycelyn Welch, BO) 2051 (Given - Provider: Joycelyn Welch, BO) nitrofurantoin (macrocrystal-monohyd rate) (Macrobid) capsule 100 mg 100 mg, Oral, 2 times daily, First dose on Fri08/09/24 at 2100, For 5 days, Suspected Indication (Select all that apply): Urinary Tract Infection 2123 (Given - Provider: Joycelyn Welch RN) 1320 (Given - Provider: Jim Rodriguez RN - [...] PRN, mild pain (1-3), fever, Starting on [place] 08/01/24 at 1331, If inadequate response within [...] sedation for opioid reversal - MUST notify director of cardiac rehabilitation provider immediately after first dose, may give [...] fever, Starting on 08/01/24 at 1331, Give LA if unable to administer by mouth or feeding tube. If inadequate response within 60 minutes, proceed to next-line agent for same PRN reason or contact provider if no further options ordered. Group 4: ondansetron ODT (Zofran-ODT) disintegrating tablet 4 mgJump to med 4 mg, Oral, Every 8 hours PRN, nausea, vomiting, Starting on 07/26/24 at 1703, 1st Line. If inadequate response [...] 0832 (Given - Provider: Sindy Garrison RN) atorvastatin (Lipitor) tablet 20 mg 20 mg, Oral, Nightly, First dose on Soni 08/12/24 at 2100, Substituted for simvastatin (Zocor). 2042 (Given - Provider: Romero Tobin RN) 2043 (Given - Provider: Juanis Rojas RN) budesonide (Pulmicort) 1 MG/2ML nebulizer solution 1 [...] in roomm) 0815 (Given - Provider: Bre Ortiz, JUDE)1533 (Given - Provider: Bre Ortiz RRT) busPIRone (Buspar) tablet 7.5 mg 7.5 mg, Oral, 2 times daily, First dose on [place] 08/12/24 at 2100 0812 (Given - Provider: Calixto Sanchez RN)2042 (Given - Provider: Romero Tobin RN) 0845 (Given - Provider: Nikolay Rene RN)2042 (Given - Provider: Juanis Rojas, BO) 0834 (Given - Provider: Sindy Garrison, BO) calcium gluconate 1000 mg in 100 [...] 0843 (Given - Provider: Nikolay Rene, BO) 0900 (Given - Provider: Sindy Garrison RN) fluticasone (Flonase) nasal spray 2 spray 2 spray, Each Nostril, Daily, First dose on Fri08/12/24 at 1815, Shake gently. Before first use, prime pump (press 6 times until fine spray appears). After use, clean tip and replace cap. 0900 (Not Given - Provider: Calixto Sanchez RN - Reason: Other - Comment: medication not available) 0900 (Not Given - Provider: Nikolay Rene, RN - Reason: Medication not available) 0831 (Given - Provider: Sindy Garrison, BO) gabapentin (Neurontin) capsule 200 mg 200 mg, Oral, 2 times daily, First dose on Fri08/12/24 at 2100 0811 (Given - Provider: Calixto Sanchez, BO)2042 (Given - Provider: Romero Tobin RN) 842 (Given - Provider: Nikolay Rene, BO)2043 (Given [...] Rene, BO)2043 (Given - Provider: Juanis Rojas, RN) 0833 (Given - Provider: Sindy Garrison, BO) heparin injection 5,000 Units 5,000 Units, SubCUTAneous, Every 12 hours scheduled (2 times per day), First dose on Fri08/16/24 at 1115 0811 (Given - Provider: Calixto Sanchez RN)2043 (Given - Provider: Romero Tobin, BO) 0842 (Given - Provider: Nikolay Rene, BO)2041 (Given - Provider: Juanis Rojas, BO) 0832 (Given - Provider: Sindy Garrison, BO) insulin glargine (Lantus) injection 5 Units 5 Units, SubCUTAneous, Nightly, First dose (after last modification) on Fri08/22/24 at 2100 2047 (Given - Provider: Romero Tobin RN) 2040 (Given - Provider: Juanis Rojas RN) Insulin Lispro (Humalog) injection 0-6 Units 0-6 Units, SubCUTAneous, 3 times daily with meals, First dose on Fri08/21/24 at 1700, Low Dose Correction Algorithm Glucose: Dose: LESS than 139 No Insulin 140-199 1 Unit 200-249 2 Units 250-299 3 Units 300-349 4 Units 350-400 5 Units Above 400 6 Units 0813 (Given - Provider: Calixto Sanchez RN - Comment: error- pulled 5 units from pyxis- wasted 1 unit at bedside to admin 4 units per order)1214 (Given - Provider: Marylu Zamudio, BO)1838 (Given - Provider: Marylu Zamudio RN) 0844 (Given - Provider: Nikolay Rene RN)1238 (Given - Provider: Nikolay Rene RN)1700 (Not Given - Provider: Nikolay Rene RN - Reason: Order parameters not met) 0834 (Given - Provider: Sindy Garrison RN)1411 (Given - Provider: Sindy Garrison RN - [...] Nikolay Rene RN)1238 (Given - Provider: Nikolay Rene, BO)1817 (Given - Provider: Nikolay Rene RN) 0840 (Given - Provider: Sindy Garrison RN)1413 (Given - Provider: Sindy Garrison RN [...] Kelley RCP)1547 (Given - Provider: Radha Kelley RCP)202 (Given - Provider: Bernadette Abraham RRT) 0747 (Given - Provider: Saroj Daigle RCP)1131 (Given - Provider: Saroj Daigle RCP)1623 (Not Given - Provider: William Waterman - Reason: Patient not available - Comment: bed not in room,)2003 (Given - Provider: Daina Carvalho RRT) 0814 (Given - Provider: Bre Ortiz RRT)1205 (Given - Provider: Bre Ortiz RRT)1532 (Given - Provider: Bre Ortiz RRT)1999 (Canceled Entry - Provider: Automatic Discharge Provider - Comment: Automatically canceled at discontinue of medication order) lisinopril tablet 2.5 mg 2.5 mg, Oral, Daily, First dose on [place] 08/12/24 at 1815 0812 (Given - Provider: Calixto Sanchez, BO) 0843 (Given - Provider: Nikolay Rene, BO) 0833 (Given - Provider: Sindy Garrison, BO) metoprolol tartrate (Lopressor) tablet 25 mg 25 mg, Oral, 2 times daily, First dose (after last modification) on Fri08/14/24 at 2100, On hold since Fri08/20/2024 at 2124 until manually unheld 09 (Dose Auto Held - Provider: Lidia Renee MD)2100 (Dose Auto Held - Provider: Lidia Renee MD) 0900 (Dose Auto Held - Provider: Lidia Renee MD)2099 (Dose Auto Held - Provider: Lidia Renee MD) 0900 (Dose Auto Held - Provider: Lidia Renee MD)2024 (Unheld by provider - Provider: Automatic Discharge Provider) mirtazapine (Remeron) tablet 7.5 mg 7.5 mg, Oral, Nightly, First dose on Fri08/12/24 at 2100, On hold since Fri08/20/2024 at 1323 until manually unheld 2099 (Dose Auto Held - Provider: Glenda Ma MD) 2099 (Dose Auto Held - Provider: Glenda Ma MD) 2024 (Unheld by provider - Provider: Automatic Discharge Provider) mometasone-formoterol (Dulera 200) 200-5 MCG/ACT inhaler 2 puff 2 puff, Inhalation, 2 times daily, First dose on Fri08/12/24 at 2000, Rinse mouth with water after [...] or split. 2042 (Given - Provider: Romero Tobin, BO) 2044 (Given - Provider: Juanis Rojas, RN) polyethylene glycol (PEG) 3350 (Miralax) packet 17 g 17 g, Oral, Daily, First dose on Fri08/17/24 at 1700 0811 (Given - Provider: Calixto Sanchez, BO) 0839 (Given - Provider: Nikolay Rene, BO) 0831 (Given - Provider: Sindy Garrison, BO) potassium chloride CR (Klor-Con M10) ER tablet 20 mEq (CANCELED) 20 mEq, Oral, Daily, First dose on Fri08/22/24 at 1300, Best given with food and plenty of water to minimize gastric irritation. Do not crush or chew. 1338 (Given - Provider: Calixto Sanchez, BO) predniSONE (Deltasone) tablet 20 mg (CANCELED)(Linked Group [...] BO) 0600 (Canceled Entry - Provider: Romero Tobin, BO)1400 (Not Given - Provider: Nikolay Rene RN - Reason: Other)2200 (Given - Provider: Juanis Rojas RN) 0600 (Given - Provider: Juanis Rojas RN)1400 (Given - Provider: Sindy Garrison RN) tamsulosin (Flomax) 24 hr capsule 0.4 mg 0.4 mg, Oral, Daily, First dose on Fri08/22/24 at 1115, Do not crush, chew, or split. 1338 (Given - Provider: Calixto Sanchez, RN - Comment: clustered w meds 2/ availability) 0843 (Given - Provider: Nikolay Rene RN) 0832 (Given - Provider: Sindy Garrison, BO) tiotropium (Spiriva Respimat) 2.5 MCG/ACT inhaler 2 puff 2 puff, Inhalation, Daily, First dose on Son[place] 08/12/24 at 1815, On hold since Fri08/20/2024 at 1428 until manually unheld 899 (Dose Auto Held - Provider: Glenda [...] patient NOT ALERT or NPO., Starting on Son[place] 08/12/24 at 1808, If patient does not respond [...] does not have IV access., Starting on Soni 08/12/24 at 1808, After administration, attempt intravenous access [...] [id number] (Given - Provider: Joycelyn Keller, BO) heparin injection 1,700 Units 1,700 Units, IntraCATHeter, [...] Starting on Fri08/17/24 at 1646 sodium chloride (Cyrus) 0.65 % nasal spray 1 spray 1 spray, Each Nostril, PRN, congestion, Starting on Fri08/13/24 at 2252 sodium chloride 0.9 % infusion 250 mL/hr, IntraVENous, Administer over 10 Minutes, As needed, For use in priming line prior to transfusion (prime via gravity) and flush line post transfusion, Starting on Soni 08/12/24 at 1901, For 1 dose, For use in priming line prior to transfusion (prime via gravity) and flush line post transfusion ONLY. Discontinue once line has been cleared of remaining blood product. Linked Groups Order Group 1: predniSONE (Deltasone) tablet 40 mg (COMPLETED) 40 mg, Oral, Daily, First dose on 08/14/24 at 0900, For 3 doses Followed by predniSONE (Deltasone) tablet 30 mg (COMPLETED) 30 mg, Oral, Daily, First dose on Tu08/17/24 at 0900, For 3 doses Followed by [...] 5 mg, Oral, Daily, First dose on Soni 08/26/24 at 0900, For 3 doses Group 2: [...] this informatio n is protected by the [facility] Confidentiality of Alcohol and Drug Abuse Patient Records regulations: The Federal rules restrict any use of the information to criminally investigate or prosecute any alcohol or drug abuse patient.[facility] the event this information is protected by the Federal Confidentiality of Alcohol and Drug Abuse Patient Records regulations: The Federal rules restrict any use of the information to criminally investigate or prosecute any alcohol or drug abuse patient.[facility] the event this information is protected by the Federal Confidentiality of Alcohol and Drug Abuse Patient Records regulations: The Federal rules restrict any use of the information to criminally investigate or prosecute any alcohol or drug abuse patient.[facility] FOR RECORDS PERTAINING TO PATIENTS WHO [...] BE BASED ON THE PRIMARY CLINICAL RECORDS. [facility] [employer] [facility]. provides no warranty or guarantee of the accuracy or completeness of information in this document.
--- OUTSIDE RECORDS SUMMARY | 2025-05-28 00:57 | XMS RPT_ITS | CCD ---
Author Organization [facility] CliniSywy Care Team Providers Care Finance Clerk Name Role Phone Ruggeri LECTURER IN COMPUTER SCIENCE, Ana Rosa F Unavailable Unavailabl e Ruggeri LECTURER IN COMPUTER SCIENCE, Ana Rosa F Unavailable Unavailabl e Dr. Sin Lujan Primary Care Provider Dr. Sin Lujan Referring Provider ELLIE Medrano Attending Provider Dr. Rios Cordova Attending Provider [phone] ELLIE Medrano Attending Provider Dr. Rios Cordova Referring Provider [phone] None, No PCP Unavailable Unavailable Dr. Sin Lujan Primary Care Provider Dr. Sin Lujan Referring Provider Susan FAN MAIL EDITOR, FAN MAIL EDITOR-C Jeanna Attending Provider [phone] ELLIE Medrano Attending Provider [phone] Susan JUÁREZ, MARQUITA-C Jeanna Referring Provider Susan JUÁREZ, FAN MAIL EDITOR-C Jeanna Other Provider Dr. Rios Cordova Attending Provider Dr. Sin Lujan Primary Care Provider Dr. Sin Lujan Referring Provider ELLIE Medrano Attending Provider [phone] Susan FAN MAIL EDITOR, FAN MAIL EDITOR-C Jeanna Referring Provider [phone] Susan FAN MAIL EDITOR, FAN MAIL EDITOR-C Jeanna Other Provider Dr. Rios Cordova Attending Provider [phone] Rios Cordova Referring Provider Dr. Sin Lujan Primary Care Provider Dr. Sin Lujan Referring Provider ELLIE Medrano Attending Provider Susan FAN MAIL EDITOR, FAN MAIL EDITOR-C Jeanna Attending Provider [phone] BENTON Hardy Referring Provider BENTON Hardy Other Provider Dr. Salomon Robbins Attending Provider Radha Aranda Attending Provider Unavailable Dr. Sin Lujan Primary Care Provider [phone] Dr. Sin Lujan Referring Provider Heidi Russell Attending Provider Unavailable BENTON Hardy Attending Provider Susan FAN MAIL EDITOR, FAN MAIL EDITOR-C Jeanna Referring Provider [phone] Susan FAN MAIL EDITOR, FAN MAIL EDITOR-C Jeanna Other Provider Dr. Rios Cordova Attending Provider Dr. Sin Lujan Primary Care Provider Dr. Sin Lujan Referring Provider Dr. Terrance Alva Attending Provider Susan FAN MAIL EDITOR, FAN MAIL EDITOR-C Jeanna Referring Provider [phone] Susan FAN MAIL EDITOR, FAN MAIL EDITOR-C Jeanna Other Provider Dr. Sin Lujan Primary Care Provider Dr. Terrance Alva Attending Provider Dr. Sin Lujan Referring Provider Dr. Rios Cordova Attending Provider [phone] ELLIE Medrano Attending Provider Dr. Sin Lujan Primary Care Provider Dr. Sin Lujan Primary Care Provider [phone] Dr. Sin Lujan Referring Provider Susan FAN MAIL EDITOR, FAN MAIL EDITOR-C Jeanna Attending Provider Dr. Sin Lujan Primary Care Provider [phone] Dr. Sin Lujan Referring Provider Du FAN MAIL EDITOR, FAN MAIL EDITOR-C Kena Attending Provider Dr. Sin Lujan Primary Care Provider Dr. Sin Lujan Referring Provider Susan FAN MAIL EDITOR, FAN MAIL EDITOR-C Jeanna Attending Provider Du FAN MAIL EDITOR, FAN MAIL EDITOR-C Kena Attending Provider MARQUITA Medrano-Marquis Gutierrez Attending Provider Dr. Bird Lujan Primary Care Provider Dr. Bird Lujan Referring Provider Susan FAN MAIL EDITOR, FAN MAIL EDITOR-C Jeanna Attending Provider Bird Lujan Primary Care Provider Bird Lujan Primary Care Provider Lars RN, Param Unavailable Unavailable Lars RN, Param Unavailable Unavailable Lars RN, Param Unavailable Unavailable COLIN PEOPLES Referring Unavailable [facility] Primary Care Unavailable INO CONTE Admitting Unavailable JONI ARANA Consulting Unavailab FLY Adhikari Attending Unavailable ELIZABETH TYLER Referring Unavailable [place] Primary Care Unavailable TORITO MAHAJAN Referring Unavailable [facility] Primary Care Unavailable SUNI BROWN Referring Unavailable RANNEY, [facility] Primary Care Unavailable TARI BRIGGS Consulting Unavailable KEMAR ADMAES Admitting Unavailable SAVITA DENISE Attending Unavailable TORITO MAHAJAN Referring Unavailable RANNEY, [facility] Primary Care Unavailable MADELINE MONTALVO Attending Unavailable MADELINE MONTALVO Referring Unavailable [facility] Primary Care Unavailable ELIESER SOLIS Attending Unavailable ELIESER SOLIS Referring Unavailable TAI, [facility] Primary Care Unavailable Bird Lujan MD B Primary Care Provider Dr. Bird Lujan MD Primary Care Provider Tai DAIGLE, Dr. Pang Referring Provider Mitchell FAN MAIL EDITOR-C, Brenda Attending Provider Susan FAN MAIL EDITOR-C, Jeanna Attending Provider Susan FAN MAIL EDITOR-C, Jeanna Referring Provider Bradley ANDERSON, Dr. Harrison Attending Provider Bradley ANDERSON, Dr. Harrison Referring Provider Dottie DAIGLE, Dr. Ballesteros Attending Provider Provider, Ed Physician Attending Provider Catina acuna Provider, Ed Physician Emergency Provider Catina Parisi DO, Dr. Anderson Attending Provider Isak ANDERSON, Dr. Anderson Emergency Provider [facility] FAN MAIL EDITOR-C, Mnyor Barbosa Attending Provider Kayleigh Farnsworth Attending Provider [...] DAIGLE, Dr. Jimmy Walton Other Provider [phone] Vargas DAIGLE, Dr. Garcia Other Provider [phone] Frannie DAIGLE, Dr. Dorado Other Provider Lauren DAIGLE, Dr. Stone Other Provider Choco DAIGLE, Dr. Burdick Other Provider Jeet DAIGLE, Dr. Jameson Other Provider [phone] Guilherme DAIGLE, Dr. Motta Other Provider Prema DAIGLE, Dr. Cadet Other Provider Lorenzo DAIGLE, Dr. Kim Other Provider Unavailabl mari Franco MD, Dr. Turner Other Provider [phone] Marquez DAIGLE, Dr. Awad Other Provider Yahir DAIGLE, Dr. Langston Other Provider [phone] Peter DAIGLE, Dr. Wang Other Provider [phone] Altagracia ANDERSON, Dr. Holguin Other Provider [phone] Adrienne DAIGLE, Dr. Michael Other Provider [phone] Shamika DAIGLE, Dr. Marcano Other Provider [phone] John Dash DO Other Provider Joaquin DAIGLE, Dr. Lemus Other Provider Donny DAIGLE, Dr. Champagne Other Provider Pradeep DAIGLE, Dr. Cutler Referring Provider Dr. Terrance Alva DO Attending Provider Dottie DAIGLE, Dr. Ballesteros Attending Provider Dr. Christy Huerta DO Referring Provider [phone] Tai DAIGLE, Dr. Pang Primary Care Provider Tai DAIGLE, Dr. Pang Referring Provider [phone] Susan FAN MAIL EDITOR-C, Jeanna Attending Provider Susan FAN MAIL EDITOR-C, Jeanna Referring Provider Mitchell FAN MAIL EDITOR-C, Brenda Attending Provider Dottie DAIGLE, Dr. Ballesteros Attending Provider Bradley ANDERSON, Dr. Harrison Attending Provider Bradley ANDERSON, Dr. Harrison Referring Provider Tai DAIGLE, Dr. Pang Primary Care Provider Susan FAN MAIL EDITOR-C, Jeanna Attending Provider Susan FAN MAIL EDITOR-C, Jeanna Referring Provider Tai DAIGLE, Dr. Pang Referring Provider Kayleigh Farnsworth Attending Provider Mitchell FAN MAIL EDITOR-C, Brenda Attending Provider Dr. Christy Huerta DO Attending Provider Bradley ANDERSON, Dr. Harrison Referring Provider Kumar DAIGLE, Dr. Vaz Attending Provider Kumar DAIGLE, Dr. Vaz Emergency Provider [phone] Isak ANDERSON, Dr. Anderson Emergency Provider Tai DAIGLE, Dr. Pang Primary Care Provider Dr. Bird Lujan MD Referring Provider Kayleigh Farnsworth Attending Provider Isak ANDERSON, Dr. Anderson Attending Provider Reshma FAN MAIL EDITOR-C, Irais Gomez Attending Provider Dr. Alonzo Edwards DO Emergency Provider Kayleigh Payne Referring Unavailable Kayleigh Payne Attending Unavailable Bird Lujan Primary Care Unavailable Bird Lujan Primary Care Unavailable Christy Huerta Attending Unavailable Christy Huerta Referring Unavailable Bird Lujan Primary Care Unavailable Christy Huerta Attending Unavailable Reynaldo Huertaine Referring Unavailable [place], Favian Attending Unavailable Dottie, Favian Referring Unavailable [facility] Care Unavailable Christy Huerta Attending Unavailable [facility] Unavailable Irais Justice Referring Unavailable Irais Justice Attending Unavailable [facility] Care Unavailable White, Lani L Admitting Unavailable White, Lani L Consulting Unavailable Favian Nicholas Attending Unavailable [facility] Unavailable Donnell, Jayaprakas Consulting Unavailable Leon Cao [...] Hines Consulting Unavailable Bradley Christy Consulting Unavailable [facility] Primary [facility] Unavailable Brenda Medrano Attending Unavailable Favian Sinclair Attending Unavailable Dottie, Favian Consulting Unavailable [place], Favian Referring Unavailable [facility] Unavailable [facility] Primary Care Unavailable Alex Hinojosa Attending Unavailable White, Lani L Consulting Unavailable White, Lani L Admitting Unavailable Favian Nicholas Attending Unavailable [facility] Primary Care Unavailable Donnell, Jayaprakas Consulting Unavailable [...] Huerta Consulting Unavailable Favian Nicholas Consulting [facility]available [facility] Unavailable Justin Parisi Attending Unavailabl e Provider, Ed Physician Attending Unavailab zan [facility] Unavailable [facility] Primary Care Unavailable Milind Heath Attending Unavailable Justin Parisi Attending Unavailquinn guerra [facility] Primary Care Unavailable [facility] Primary Care Unavailable Susan FAN MAIL EDITOR, Jeanna Attending Unavailable Susan FAN MAIL EDITOR, Jeanna Referring Unavailable Christy Huerta Referring Unavailable Christy Huerta Attending Unavailable [facility] Primary Care Unavailable Lani Samaniego Attending Unavailable [facility] Primary Care Unavailable Christy Huerta Consulting Unavailable He Cat Attending Unavailable Alex Hinojosa Admitting Unavailable Alex Hinojosa Consulting Unavailable He Cat Consulting Unavailable [facility] Primary Care Unavailable Kayleigh Payne Attending Unavailable Ranney, Christopher Referring [facility]available [facility] Unavailable Alex Hinojosa Admitting Unavailable Christy Huerta Consulting Unavailable He Cat Attending Unavailable Alex Hinojosa Consulting Unavailable Favian Nicholas Referring Unavailable Terrance Alva Attending Unavailable Alonzo Edwards Attending Unavailable [facility] Primary Care Unavailable [place], Christopher Referring Unavailable Brenda Medrano Attending Unavailable [facility] Unavailable [place], Christopher Referring Unavailable Viraj No Attending Unavailable [facility] Primary Care Unavailable [facility] Primary Care Unavailable Brenda Medrano Attending Unavailable [place], Christopher Referring Unavailable [place] Referring Unavailable Gabrielle FAN MAIL EDITORMynor Attending Unavailable [facility] Primary Care Unavailable Bradley, Christy Referring Unavailable Favian Sinclair Attending Unavailable [facility] Primary Care Unavailable [place] Referring Unavailable Susan FAN MAIL EDITOR, Jeanna Attending Unavailable [facility] Primary Care Unavailable [facility] Referring Unavailable Irais Justice Attending Unavailable [facility] Primary Care Unavailable [facility] Primary Care Unavailable [facility], Christopher Referring Unavailable Kayleigh Payne [...] Hines Consulting Unavailable Favian Sinclair Attending Unavailable [facility] Primary Care Unavailable Lani Samaniego Referring Unavailable Saroj Lemos Attending Unavailable [facility] Primary Care Unavailable Favian Sinclair Attending Unavailable [facility] Primary Care Unavailable Tee Aguirre Attending Unavailquinn e [facility] Unavailable [facility] [facility] Unavailable Bird Lujan Referring Unavailable Favian Sinclair Attending Unavailable Baldo Tripp Attending Unavailable Jeanna Davis NP Attending Unavailable Susan FAN MAIL EDITOR, Jeanna Referring Unavailable Bird Lujan Primary Care [...] PO DAILY December 31, 2019 1:00am [facility] Start: 11-19-2019 End: 12-31-2019 take 1 [...] aerosol 07/20/2024 Active Start: 07-20-2024 End: 10-07-2024 Bfnbzbqsyy-Pcujvgmr-Vuchvghv ol (Breztri Aerosphere) 160-9-4.8 mcg/actuation HFA aerosol [...] D3 1 000 UNIT CHEW Weekly CHOLECALCIFEROL [id number] Alyssia Ibanez RN RN Continuous Glucose Sensor (Dexcom G6 Sensor) [facility] [employer] (6 sources) Start: 07-22-2024 Continuous Glucose Sensor (Dexcom G6 Sensor) [facility] [employer] 07/22/2024 Active Continuous Glucose Transmitter (Dexcom G6 transmitter) [facility] (6 sources) Start: 07-25-2024 Continuous Glucose Transmitter (Dexcom G6 transmitter) [facility] [employer] 07/25/2024 Active 1 ml denosumab 60 mg/ml [...] mouth once daily. Active Flash Glucose Scanning [place] (Freestyle Eileen 2 [place]) [facility] [employer] (20 sources) Start: 11-20-2020 Flash Glucose Scanning [place] (Freestyle [place]en 2 [place] [facility] Active 0 .ROUTE .MEDSUPPLY November 20, 2020 10:12am As directed Start: 11-20-2020 End: 01-27-2025 Flash Glucose Scanning [place] (Freestyle [place]en 2 [place]) [facility] [employer] Discontinued 0 .ROUTE .MEDSUPPLY 1 November 20, 2020 1:00am January 27, 2025 8:47am As directed Start: 11-20-2020 Flash Glucose Scanning [place] (Freestyle [place]en 2 [place]) [facility] [employer] Active 0 .ROUTE .MEDSUPPLY November 20, 2020 12:00am As directed Start: 11-20-2020 Flash Glucose Scanning [place] (Freestyle [place]en 2 [place]) misc Active 0 .ROUTE .MEDSUPPLY 1 November [...] with hypoxia breathing Start: 05-18-2025 End: 05-18-2025 Jbcntrkwndo-Xuqcpjycs-Fzqykh er (Trelegy Ellipta) 200-62.5-25 mcg blister with device Discontinued 1 NMA INHALATION DAILY 3 May 18, 2025 8:59am May 18, 2025 9:22am breathing Start: 12-30-2024 End: 05-18-2025 Wjgycnfjmuw-Ufknowawa-Pvjfoj er (Trelegy Ellipta) 200-62.5-25 mcg blister with device Discontinued 1 NMA INHALATION DAILY 3 December 30, 2024 12:58pm May 18, 2025 8:59am breathing Start: 12-30-2024 Fluticasone-Um eclidin-Vilanter (Trelegy Ellipta) 200-62.5-25 mcg blister with device Active 1 NMA INHALATION DAILY 3 December 30, 2024 12:58pm breathing Start: 12-30-2024 Start: 10-13-2024 End: 12-30-2024 Vmntpehsrfo-Cetujiivp-Sifhch er (Trelegy Ellipta) 200-62.5-25 mcg blister with device Discontinued 1 NMA INHALATION DAILY 3 October 13, 2024 1:00am December 30, 2024 12:58pm Start: 10-13-2024 End: 12-30-2024 Start: 10-29-2023 End: 07-20-2024 Nyfshtkhmrx-Xtzqqomql-Puflum er (Trelegy Ellipta) 200-62.5-25 mcg blister with [...] 29, 2023 3:13pm Start: 10-01-2023 End: 10-29-2023 Kbwqdsjzavl-Uagmlxcax-Nowqao er (Trelegy Ellipta) 200-62.5-25 mcg blister with device Discontinued 1 NMA INHALATION DAILY 3 October 01, 2023 3:45pm October 29, 2023 4:14pm Start: 10-01-2023 End: 10-29-2023 Start: 10-01-2023 End: 10-29-2023 Mrlkyvcxkdq-Bwunysbmu-Wxbuqw er (Trelegy Ellipta) 200-62.5-25 mcg blister with device Discontinued 1 INH INHALATION DAILY October 01, 2023 3:45pm October 29, 2023 4:14pm Start: 10-01-2023 End: 10-29-2023 Fpqcyamcvfc-Iabmptfrb-Twnspu er (Trelegy Ellipta) 200-62.5-25 mcg blister with device Discontinued 1 INH INHALATION DAILY October 01, 2023 2:45pm October 29, 2023 3:14pm Start: 10-01-2023 Fluticasone-Um eclidin-Vilanter (Trelegy Ellipta) 200-62.5-25 mcg blister with device Active 1 INH INHALATION DAILY 3 October 01, 2023 2:45pm Start: 06-25-2023 End: 10-01-2023 Xpylosscemn-Mwvxcrvep-Gfpcgi er (Trelegy Ellipta) 200-62.5-25 mcg blister with device Discontinued 1 NMA INHALATION DAILY 60 June 25, 2023 12:00am October 01, 2023 3:46pm Start: 06-25-2023 End: 10-01-2023 Start: 06-25-2023 End: 10-01-2023 Bgpspqfcmgx-Wgpwysyfx-Gmjeoa er (Trelegy Ellipta) 200-62.5-25 mcg blister with device Discontinued 1 INH INHALATION DAILY 60 June 25, 2023 12:00am October 01, 2023 3:46pm Start: 06-25-2023 End: 10-01-2023 Mejpabfeksc-Mppdwrayf-Ktwgjo er (Trelegy Ellipta) 200-62.5-25 mcg blister with [...] Start: 01-06-2025 Insulin Disposable Pump (Omnipod 5 [id number] Intro Gen 5) kit (3 sources) Start: 12-03-2023 Insulin Disposable Pump (Omnipod 5 [id number] Intro Gen 5) kit 12/03/2023 Active Insulin Disposable Pump (Omnipod 5 [id number] Pods Gen 5) misc (3 sources) Start: 07-15-2024 Insulin Disposable Pump (Omnipod 5 [id number] Pods Gen 5) misc 07/15/2024 Active insulin [...] 21 units sq q hs INSULIN GLARGINE [id number] Alyssia Ibanez RN RN Start: 01-21-2015 End: [...] 20 units sq q hs INSULIN GLARGINE [id number] Qi Dunham LPN Insulin Pump Cart,Auto,Bt,G6 /L [...] ZOFRAN 8 MG TABS PRN ONDANSETRON HCL [id number] Alyssia Ibanez RN RN Oxygen (6 sources) [...] TABS One tablet by mouth daily SIMVASTATIN [id number] Alyssia Ibanez RN RN Trelegy Ellipta 200-62.5-25 [...] pain and fever 20 ml albumin human, residential 250 mg/ml injection (12 sources) Human Serum Albumin Start: 08-16-2024 End: 08-17-2024 Start: 08-16-2024 End: 08-16-2024 Start: 08-13-2024 End: 08-13-2024 Start: 08-05-2024 End: 08-05-2024 [id number] 200 actuat albuterol 0.09 mg/actuat metered dose [...] 26, 2018 1:49pm take 2 puff(s) by [facility] every six hours for cough albuterol 108 (90 Base) MCG/ACT inhaler inhale 2 puffs by mouth and INTO THE LUNGS every 6 hours if needed for cough Active PROAIR HFA 108 ( 90 Base) MCG/ACT AERS PRN ALBUTEROL SULFATE [id number] Alyssia Ibanez RN RN albuterol 0.833 mg/ml [...] AUGMENTIN 875-125 MG TABS bid AMOXICILLIN-POT CLAVULANATE [id number] Edie Kearney MD Start: 12-30-2012 AUGMENTIN 875- 125 MG TABS bid AMOXICILLIN-POT CLAVULANATE [id number] Edie Kearney MD take 10 mL by mouth every eight hours AUGMENTIN 250-62.5 MG/5ML SUSR 10 ml po q 8 hrs AMOXICILLIN-POT CLAVULANATE 36263349401 Qi Dunham LPN End: 12-30-2012 take 10 mL by mouth every eight hours AUGMENTIN 250-62.5 MG/5ML SUSR 10 ml po q 8 hrs AMOXICILLIN-POT CLAVULANATE [id number] Edie Kearney MD ASPIRIN TBEC (2 sources) take 1 tablet by mouth once daily ASPIR-81 TBEC One tablet by mouth daily ASPIRIN TBEC [id number] Qi Dunham LPN atorvastatin 20 mg oral [...] SUSR 500mg po q 12 hrs CIPROFLOXACIN [id number] Qi Dunham LECTURER IN COMPUTER SCIENCE clopidogrel 75 mg oral tablet (20 sources) [...] by mouth twice daily prn DOCUSATE SODIUM [id number] Alyssia Ibanez RN RN docusate sodium 50 mg / sennosides, residential 8.6 mg oral tablet (2 sources) Start: [...] 12 hrs x 10 d DOXYCYCLINE HYCLATE [id number] Edie Kearney MD ergocalciferol 1.25 mg oral capsule (20 sources) Provitamin D2 Compound Start: 06-21-2018 End: 07-14-2023 Ergocalciferol (Vitamin D2) 50,000 UNIT capsule Discontinued 29159 U PO Q7D June 21, 2018 12:00am [...] One tablet by mouth daily ESCITALOPRAM OXALATE [id number] Alyssia Ibanez RN RN ferrous sulfate 325 [...] 1:00am July 19, 2021 1:00pm As directed Ngdxiecyeej-Pcfdtojwv-Pdzutl er (20 sources) Anticholinergic, Corticosteroid, beta2-Adrenergic Agonist Start: 02-17-2023 End: 06-25-2023 Dyhmyzkufpk-Omdsflogh-Xdndah er (Trelegy Ellipta) 100-62.5-25 mcg blister with device Discontinued 1 NMA INHALATION daily 60 February 17, 2023 9:13am June 25, 2023 8:59am Chronic obstructive pulmonary disease, unspecified administer at approximately the same time(s) each day Start: 02-17-2023 End: 06-25-2023 Start: 02-17-2023 End: 06-25-2023 Gzmwzuqaiph-Ovatyhsga-Qhzxlt er (Trelegy Ellipta) 100-62.5-25 mcg blister with device Discontinued 1 INH INHALATION daily 60 February 17, 2023 9:13am June 25, 2023 8:59am administer at approximately the same time(s) each day Start: 02-17-2023 End: 06-25-2023 Bozyaqxdpvq-Rocltevgg-Fbtqzo er (Trelegy Ellipta) 100-62.5-25 mcg blister with device Discontinued 1 INH INHALATION daily 60 February 17, 2023 8:13am June 25, 2023 7:59am administer at approximately the same time(s) each day Start: 02-17-2023 Fluticasone-Um eclidin-Vilanter (Trelegy Ellipta) 100-62.5-25 mcg blister with device Active 1 INH INHALATION daily 60 February 17, 2023 9:13am administer at approximately the same time(s) each day Start: 02-21-2022 End: 02-17-2023 Jsrwravtftn-Gcczqietb-Ypvzoo er (Trelegy Ellipta) 100-62.5-25 mcg blister with device Discontinued 1 NMA INHALATION daily 60 February 21, 2022 1:21pm February 17, 2023 9:13am Chronic obstructive pulmonary disease, unspecified administer at approximately the same time(s) each day Start: 02-21-2022 End: 02-17-2023 Start: 02-21-2022 End: 02-17-2023 Jrukxylytya-Ptufgnbjq-Dgmiij er (Trelegy Ellipta) 100-62.5-25 mcg blister with device Discontinued 1 INH INHALATION daily 60 February 21, 2022 12:21pm February 17, 2023 8:13am administer at approximately the same time(s) each day Start: 02-21-2022 End: 02-17-2023 Utjjubuwglt-Ijsdajxgd-Gbcjan er (Trelegy Ellipta) 100-62.5-25 mcg blister with [...] time(s) each day Start: 01-16-2022 End: 02-21-2022 Pqbdjqjqway-Tvvgjrtxc-Dqenmi er (Trelegy Ellipta) 100-62.5-25 mcg blister with device Discontinued 1 NMA INHALATION daily 60 January 16, 2022 11:47am February 21, 2022 1:22pm Chronic obstructive pulmonary disease, unspecified administer at approximately the same time(s) each day Start: 01-16-2022 End: 02-21-2022 Start: 01-16-2022 End: 02-21-2022 Uumjoxwfoud-Tvfpjjlgd-Fdzkso er (Trelegy Ellipta) 100-62.5-25 mcg blister with device Discontinued 1 INH INHALATION daily 60 January 16, 2022 10:47am February 21, 2022 12:22pm administer at approximately the same time(s) each day Start: 01-16-2022 End: 02-21-2022 Wepbwntfumf-Kxulhjgqe-Takdft er (Trelegy Ellipta) 100-62.5-25 mcg blister with device Discontinued 1 INH INHALATION daily 60 January 16, 2022 11:47am February 21, 2022 1:22pm administer at approximately the same time(s) each day Start: 01-16-2022 Fluticasone-Um eclidin-Vilanter (Trelegy Ellipta) 100-62.5-25 mcg blister with device Active 1 INH INHALATION daily 60 January 16, 2022 11:47am administer at approximately the same time(s) each day Start: 09-10-2021 End: 01-16-2022 Azjteqrfjaf-Hmbcxvjra-Lvfsoi er (Trelegy Ellipta) 100-62.5-25 mcg blister with device Discontinued 1 NMA INHALATION daily 60 3 September 10, 2021 2:48pm January 16, 2022 11:48am Chronic obstructive pulmonary disease, unspecified administer at approximately the same time(s) each day Start: 09-10-2021 End: 01-16-2022 Start: 09-10-2021 End: 01-16-2022 Ppwqymgbzjo-Vrijdsndu-Cxhzmz er (Trelegy Ellipta) 100-62.5-25 mcg blister with device Discontinued 1 INH INHALATION daily 60 September 10, 2021 1:48pm January 16, 2022 10:48am administer at approximately the same time(s) each day Start: 09-10-2021 End: 01-16-2022 Fayxjluaywe-Hajjmehvq-Ndkynu er (Trelegy Ellipta) 100-62.5-25 mcg blister with device Discontinued 1 INH INHALATION daily 60 September 10, 2021 2:48pm January 16, 2022 11:48am administer at approximately the same time(s) each day Start: 04-03-2021 End: 09-10-2021 Xxnkbzulyqs-Ndeoennka-Kqxlhg er (Trelegy Ellipta) 100-62.5-25 mcg blister with device Discontinued 1 NMA INHALATION daily 60 April 03, 2021 10:55am September 10, 2021 2:49pm Chronic obstructive pulmonary disease, unspecified administer at approximately the same time(s) each day Start: 04-03-2021 End: 09-10-2021 Start: 04-03-2021 End: 09-10-2021 Xvmqtkgazxx-Zxkbdgqmc-Fmjpzw er (Trelegy Ellipta) 100-62.5-25 mcg blister with device Discontinued 1 INH INHALATION daily 60 April 03, 2021 9:55am September 10, 2021 1:49pm administer at approximately the same time(s) each day Start: 04-03-2021 End: 09-10-2021 Thjjttslxhu-Avlmundwi-Pdkqtb er (Trelegy Ellipta) 100-62.5-25 mcg blister with device Discontinued 1 INH INHALATION daily 60 April 03, 2021 10:55am September 10, 2021 2:49pm administer at approximately the same time(s) each day Start: 09-12-2020 End: 04-03-2021 Eujrqppqbsd-Aptnbcuup-Mqmlnb er (Trelegy Ellipta) 100-62.5-25 mcg blister with device Discontinued 1 INH INHALATION daily 60 September 12, 2020 9:59am April 03, 2021 10:55am administer at approximately the same time(s) each day Start: 09-12-2020 End: 04-03-2021 Sxseqejhtqq-Rbvfrldqp-Ocxniq er (Trelegy Ellipta) 100-62.5-25 mcg blister with device Discontinued 1 NMA INHALATION daily 60 3 September 12, 2020 1:00am April 03, 2021 10:55am Chronic obstructive pulmonary disease, unspecified administer at approximately the same time(s) each day Start: 09-12-2020 End: 04-03-2021 Start: 09-12-2020 End: 04-03-2021 Ubvraslyyzz-Bjaocdtwm-Ahgabh er (Trelegy Ellipta) 100-62.5-25 mcg blister with device Discontinued 1 INH INHALATION daily 60 September 12, 2020 12:00am April 03, 2021 9:55am administer at approximately the same time(s) each day Start: 09-12-2020 End: 04-03-2021 Fuitvwkuepe-Ratixucox-Mnzkrn er (Trelegy Ellipta) 100-62.5-25 mcg blister with [...] in case of hypoglycemia emergency GLUCAGON (RDNA) [id number] Alyssia Ibanez RN RN 150 ml glucose [...] po q 4 hrs prn HYDROMORPHONE HCL [id number] Qi Dunham [employer] ibuprofen 200 mg oral tablet (8 sources) Nonsteroidal Anti-inflammatory Drug End: 12-16-2012 take 1 tablet by mouth every six hours as needed MOTRIN IB TABS 800 mg by mouth q 6 hrs prn IBUPROFEN TABS [id number] Qi Dunham [employer] End: 12-30-2012 ADVIL 200 MG CAPS q 4 hrs as needed IBUPROFEN [id number] Edie Kearney MD Insulin Basal Pump (Pt's [...] SOLN 21 units at bedtime INSULIN DETEMIR [id number] Alyssia Ibanez RN RN insulin isophane, human [...] a day with meals INSULIN LISPRO (HUMAN) [id number] Qi Dunham LPN End: 12-30-2012 take 5 [IU] by subcutaneous injection three times daily at mealtime HUMALOG 100 UNIT/ML SOLN 5 units sq three times a day with meals INSULIN LISPRO (HUMAN) [id number] Edie Kearney MD Insulin Pump Cart,Auto,Bt-Cn tr [...] 15/64 0.3 ML MISC INSULIN SYRINGE-NEEDLE U-100 [id number] Alyssia Ibanez RN RN insulin aspart, human [...] NOVOLOG 100 UNIT /ML SOLN INSULIN ASPART [id number] Alyssia Ibanez RN RN insulin, regular, human [...] by mouth daily for 5 days LEVOFLOXACIN [id number] Qi Dunham LPN lisinopril 2.5 mg oral [...] Nitrofuran Antibacterial Start: 08-09-2024 End: 08-24-2024 nystatin 420683 unt/ml oral suspension (20 sources) Polyene Antifungal Start: 06-23-2018 End: 12-31-2018 take 532454 [IU] by mouth four times daily Nystatin 500,000 UNIT/5 ML suspension Discontinued 616561 U PO 4 TIMES DAILY 1 0 [...] Start: 08-12-2024 End: 08-12-2024 polyethylene glycol 3350 29906 mg powder for oral solution (4 sources) [...] 1 capsule by inhalation once daily Tiotropium Edon 18 MCG capsule, w/inhalation device Discontinued 18 ug IH DAILY June 21, 2018 12:00am September 12, 2020 9:59am breathing Start: 06-21-2018 End: 09-12-2020 SPIRIVA HANDIHAL ER 18 MCG CAPS Daily TIOTROPIUM BROMIDE MONOHYDRATE [id number] Alyssia Ibanez RN RN varenicline 1 mg oral tablet (4 sources) Partial Cholinergic Nicotinic Agonist End: 01-21-2013 take 2 tablets by mouth once daily CHANTIX 1 MG TABS Two tablets by mouth daily VARENICLINE TARTRATE [id number] Edie Kearney MD (6 sources) Start: 08-22-2024 [...] Coronary atherosclerosis; Translations: [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] Onset: 08-12-2024 [...] consciousness status unknown, initial encounter ([facility]); Translations: [Traumatic subdural hemorrhage with loss of consciousness status unknown, initial encounter ([facility])] Onset: 07-26-2024 Unclassified (3 sources) [...] consciousness status unknown, initial encounter ([facility]); Translations: [Traumatic subdural hemorrhage with loss of consciousness status unknown, initial encounter ([facility])] Onset: 4 Results Test Name Value Interpretation Reference Range Facility Anion gap in Serum or Plasma Ordered By: Shivani Mcrae on 05-20-2025 Anion gap [Moles/Vol] 10 mmol/L 5- [facility] BUN/creatinine ratioOrdered By: Shivani Mcrae on 05-20-2025 Urea nitrogen/Creatinine [Mass ratio] 8.6 mg/mg Low 08-22 [facility] Basic Metabolic Profile (BMP )on 05-20-2025 BUN/CRE 8.6 RATIO Low 08-22 [facility] Comment on above: Performed By: #### L 500.2500 ####[facility] [address] [place], [address] Calcium [Mass/Vol] 7.9 mg/dL Normal 7.6-11.0 [facility] Comment on above: Performed By: #### L 500.2500 ####[facility] [address] [place], [address] Chloride [Moles/Vol] 100 mmol/L Normal 98-108 [facility] Comment on above: Performed By: #### L 500.2500 ####[facility] [address] [place], [address] CO2 [Moles/Vol] 27.7 mmol/L Normal 21.0-32.0 [facility] Comment on above: Performed By: #### L 500.2500 ####[facility] [address] [place], [address] Creatinine [Mass/Vol] 2.33 mg/dL High 0.70-1.20 [facility] Comment on above: Performed By: #### L 500.2500 ####[facility] [address] [place], [address] ECRCL 19.11 ml/min Low 50-250 [facility] Comment on above: Performed By: #### L 500.2500 ####[facility] [address] [place], [address] GAP 10 Normal 5-15 [facility] Comment on above: Performed By: #### L 500.2500 ####[facility] [address] [place], [address] GFR/1.73 sq M.predicted among non-blacks MDRD (S/P/Bld) [Vol rate/Area] 23 mL/min/{1.73_m2} Low >60 [facility] Comment on above: Result Comment: mL/m in/1.73m2 CKD-EPI Creatinine Equation (2020) Performed By: #### L 500.2500 ####[facility] [address] [place], [address] Glucose [Mass/Vol] 164 mg/dL High 70-99 [facility] Comment on above: Performed By: #### L 500.2500 ####[facility] [address] [place], [address] Potassium [Moles/Vol] 3.2 mmol/L Low 3.3-5.1 [facility] Comment on above: Result Comment: Hemo lysis present, Results??could be affected.?? Performed By: #### L 500.2500 ####[facility] [address] [place], [address] Sodium [Moles/Vol] 138 mmol/L Normal 133-145 [facility] Comment on above: Performed By: #### L 500.2500 ####[facility] [address] [place], [address] Urea nitrogen [Mass/Vol] 20 mg/dL High 4-19 [facility] Comment on above: Performed By: #### L 500.2500 ####[facility] [address] [place], [address] Carbon dioxide, total [Moles /volume] in Central venous bloodOrdered By: Shivani Mcrae on 05-20-2025 CO2 [Moles/Vol] 27.7 mmol/L 21.0-32.0 [facility] Chloride assayOrdered By: Wesley Mcrae on 05-20-2025 Chloride [Moles/Vol] 100 mmol/L 98-108 [facility] Emergency Department Summary on 05-20-2025 Emergency Department Summary Normal [facility] Glomerular filtration rate ( GFR) estimation/1.73 sq m using serum, plasma, or whole bOrdered By: Shivani Mcrae on 05-20-2025 GFR/1.73 sq M.predicted among non-blacks MDRD (S/P/Bld) [Vol rate/Area] 23 mL/min/{1.73_m2} Low >60 [facility] Comment on above: mL/min/1.73m2 CKD-EP I Creatinine Equation (2020) Potassium measurement (mass/ volume)Ordered By: Shivani Mcrae on 05-20-2025 Potassium (Unsp spec) [Mass/Vol] 3.2 mmol/L Low 3.3-5.1 [facility] Comment on above: Hemolysis present, R esults could be affected. Serum creatinine measurement (mass/volume)Ordered By: Shivani Mcrae on 05-20-2025 Creatinine [Mass/Vol] 2.33 mg/dL High 0.70-1.20 [facility] Serum glucose measurement (m ass/volume)Ordered By: Shivani Mcrae on 05-20-2025 Glucose [Mass/Vol] 164 mg/dL High 70-99 [facility] Serum or plasma calcium lesly urement (mass/volume)Ordered By: Shivani Mcrae on 05-20-2025 Calcium [Mass/Vol] 7.9 mg/dL 7.6-11.0 [facility] Serum or plasma urea nitroge n measurement (mass/volume)Ordered By: Shivani Mcrae on 05-20-2025 Urea nitrogen [Mass/Vol] 20 mg/dL High 4-19 [facility] Sodium levelOrdered By: Juan Mcrae on 05-20-2025 Sodium [Moles/Vol] 138 mmol/L 133-145 [facility] Pulmonary Visit Reporton Pulmonary Visit Report Normal [facility] Abdomen/Pelvis W IV Cont ONL Yon 05-08-2025 Abdomen/Pelvis W IV Cont ONLY Normal [facility] Absolute lymphocyte countOrd ered By: Justin Parisi on 05-08-2025 Lymphocytes Auto (Unsp spec) [#/Vol] 1.62 10*3/uL 0.83-4.51 [facility] Absolute neutrophil countOrd ered By: Justin Parisi on 05-08-2025 Neutrophils (Bld) [#/Vol] 2.9 10*3/uL 2.0-7.7 [facility] Anion gap in Serum or Plasma Ordered By: Justin Parisi on 05-08-2025 Anion gap [Moles/Vol] 11 mmol/L 5-15 [facility] Automated lymphocyte count a s percentage of total leukocytesOrdered By: Justin Parisi on 05-08-2025 Lymphocytes/100 WBC Auto (Unsp spec) 27.5 % 19-41 [facility] BUN/creatinine ratioOrdered By: Justin Isak on 05-08-2025 Urea nitrogen/Creatinine [Mass ratio] 8.8 mg/mg Low 10-20 [facility] Basophil percentageOrdered B y: Justin Parisi on 05-08-2025 Basophils/100 WBC (Bld) 0.8 % 0-1 [facility] Beta-Hydroxbytyrateon 2024 BETA-HYDROXYBUT 0.4 mmol/L High 0.0-0.3 [facility] Comment on above: Performed By: #### L 501.6901 ####[facility] [address] [place], [address] Beta-hydroxybutyrateOrdered By: [facility]ugen[facility] on 05-08-2025 Beta hydroxybutyrate [Mass/Vol] 0.4 mmol/L High 0.0-0.3 [facility] Bilirubin Test strip Ql (U)O rdered By: Justinmarine CamposEugenio on 05-08-2025 Bilirubin Ql (U) Negative Negative [facility] Bilirubin, totalOrdered By: [facility] Care[facility]iaEugenio on 05-08-2025 Bilirubin [Mass/Vol] 0.30 mg/dL 0.00-1.30 [facility] CBC W/Diff, Automatedon 070 Absolute Lymph 1.62 X10 3/uL Normal 0.83-4.51 [facility] Comment on above: Performed By: #### L 100.0100, L501.2450, L501.5200, L500.4050 ####[facility] [address] [place], [address] Absolute Neut 2.9 X10 3/uL Normal 2.0-7.7 [facility] Comment on above: Performed By: #### L 100.0100, L501.2450, L501.5200, L500.4050 ####[facility] [address] [place], [address] Basophils/100 WBC (Bld) 0.8 % Normal 0-1 [facility] Comment on above: Performed By: #### L 100.0100, L501.2450, L501.5200, L500.4050 ####[facility] [address] [place], [address] Eosinophils/100 WBC (Bld) 15.1 % High 0-5 [facility] Comment on above: Performed By: #### L 100.0100, L501.2450, L501.5200, L500.4050 ####[facility] [address] [place], [address] Erythrocyte distribution width (RBC) [Ratio] 13.8 % Normal 11.6-14.6 [facility] Comment on above: Performed By: #### L 100.0100, L501.2450, L501.5200, L500.4050 ####[facility] [address] [place], [address] Hematocrit (Bld) [Volume fraction] 37.2 % Normal 37-47 [facility] Comment on above: Performed By: #### L 100.0100, L501.2450, L501.5200, L500.4050 ####[facility] [address] [place], [address] Hemoglobin (Bld) [Mass/Vol] 11.2 g/dL Low 12.0-15.0 [facility] Comment on above: Performed By: #### L 100.0100, L501.2450, L501.5200, L500.4050 ####[facility] [address] [place], [address] IG% 0.200 Normal 0.0-0.9 [facility] Comment on above: Result Comment: IG% - Immature Granulocytes (promyelocytes, myelocytes andmetamyelocytes) > 1% indicates that a LEFT SHIFT is Present. Performed By: #### L 100.0100, L501.2450, L501.5200, L500.4050 ####[facility] [address] [place], [address] Lymphocytes/100 WBC (Bld) 27.5 % Normal 19-41 [facility] Comment on above: Performed By: #### L 100.0100, L501.2450, L501.5200, L500.4050 ####[facility] [address] [place], [address] MCH (RBC) [Entitic mass] 28.1 pg Normal 27.0-32.0 [facility] Comment on above: Performed By: #### L 100.0100, L501.2450, L501.5200, L500.4050 ####[facility] [address] [place], [address] MCHC (RBC) [Mass/Vol] 30.1 g/dL Low 32-36 [facility] Comment on above: Performed By: #### L 100.0100, L501.2450, L501.5200, L500.4050 ####[facility] [address] [place], [address] MCV (RBC) [Entitic vol] 93.2 fL Normal 81-99 [facility] Comment on above: Performed By: #### L 100.0100, L501.2450, L501.5200, L500.4050 ####[facility] [address] [place], [address] Monocytes/100 WBC (Bld) 7.1 % Normal 0-10 [facility] Comment on above: Performed By: #### L 100.0100, L501.2450, L501.5200, L500.4050 ####[facility] [address] [place], [address] Neutrophils/100 WBC (Bld) 49.3 % Normal 47-70 [facility] Comment on above: Performed By: #### L 100.0100, L501.2450, L501.5200, L500.4050 ####[facility] [address] [place], [address] Nucleated RBC (Bld) [#/Vol] 0 10*3/uL Normal 0-5 [facility] Comment on above: Performed By: #### L 100.0100, L501.2450, L501.5200, L500.4050 ####[facility] [address] [place], [address] Platelet mean volume (Bld) [Entitic vol] 9.9 fL Normal 6.2-12.0 [facility] Comment on above: Performed By: #### L 100.0100, L501.2450, L501.5200, L500.4050 ####[facility] [address] [place], [address] Platelets (Bld) [#/Vol] 154 10*3/uL Normal 150-450 [facility] Comment on above: Performed By: #### L 100.0100, L501.2450, L501.5200, L500.4050 ####[facility] [address] [place], [address] RBC (Bld) [#/Vol] 3.99 10*6/uL Low 4.2-5.4 [facility] Comment on above: Performed By: #### L 100.0100, L501.2450, L501.5200, L500.4050 ####[facility] [address] [place], [address] RDW SD 47.4 fl High 35.1-43.9 [facility] Comment on above: Performed By: #### L 100.0100, L501.2450, L501.5200, L500.4050 ####[facility] [address] [place], [address] WBC (Bld) [#/Vol] 5.9 10*3/uL Normal 4.4-11.0 [facility] Comment on above: Performed By: #### L 100.0100, L501.2450, L501.5200, L500.4050 ####[facility] [address] [place], [address] CO2 (BldV) [Moles/Vol]Ordere d By: Justin Parisi on 05-08-2025 CO2 [Moles/Vol] 37 mmol/L High 23-33 [facility] Carbon dioxide, total [Moles /volume] in Central venous bloodOrdered By: Justin Parisi on 05-08-2025 CO2 [Moles/Vol] 28.6 mmol/L 21.0-32.0 [facility] Chest PA and Lateralon 05-08 Chest PA and Lateral Normal [facility] Chloride assayOrdered By: Kwadwo Parisi on 05-08-2025 Chloride [Moles/Vol] 102 mmol/L 98-108 [facility] Comprehensive Metabolic Prof ilon 05-08-2025 Albumin [Mass/Vol] 3.6 g/dL Normal 3.4-4.8 [facility] Comment on above: Performed By: #### L 100.0100, L501.2450, L501.5200, L500.4050 ####[facility] [address] [place], [address] Albumin/Globulin [Mass ratio] 1.3 {ratio} Normal 0.9-2.4 [facility] Comment on above: Performed By: #### L 100.0100, L501.2450, L501.5200, L500.4050 ####[facility] [address] [place], [address] ALK PHOS 63 U/L Normal 35-104 [facility] Comment on above: Performed By: #### L 100.0100, L501.2450, L501.5200, L500.4050 ####[facility] [address] [place], [address] ALT [Catalytic activity/Vol] 9 U/L Normal <=34 [facility] Comment on above: Performed By: #### L 100.0100, L501.2450, L501.5200, L500.4050 ####[facility] [address] [place], [address] AST [Catalytic activity/Vol] 22 U/L Normal <=31 [facility] Comment on above: Result Comment: Hemo lysis present, Results??could be affected.?? Performed By: #### L 100.0100, L501.2450, L501.5200, L500.4050 ####[facility] [address] [place], [address] Bilirubin [Mass/Vol] 0.30 mg/dL Normal 0.00-1.30 [facility] Comment on above: Performed By: #### L 100.0100, L501.2450, L501.5200, L500.4050 ####[facility] [address] [place], [address] BUN/CRE 8.8 RATIO Low 10-20 [facility] Comment on above: Performed By: #### L 100.0100, L501.2450, L501.5200, L500.4050 ####[facility] [address] [place], [address] Calcium [Mass/Vol] 8.3 mg/dL Normal 7.6-11.0 [facility] Comment on above: Performed By: #### L 100.0100, L501.2450, L501.5200, L500.4050 ####[facility] [address] [place], [address] Chloride [Moles/Vol] 102 mmol/L Normal 98-108 [facility] Comment on above: Performed By: #### L 100.0100, L501.2450, L501.5200, L500.4050 ####[facility] [address] [place], [address] CO2 [Moles/Vol] 28.6 mmol/L Normal 21.0-32.0 [facility] Comment on above: Performed By: #### L 100.0100, L501.2450, L501.5200, L500.4050 ####[facility] [address] [place], [address] Creatinine [Mass/Vol] 3.92 mg/dL High 0.70-1.20 [facility] Comment on above: Performed By: #### L 100.0100, L501.2450, L501.5200, L500.4050 ####[facility] [address] [place], [address] ECRCL 10.39 ml/min Low 50-250 [facility] Comment on above: Performed By: #### L 100.0100, L501.2450, L501.5200, L500.4050 ####[facility] [address] [place], [address] GAP 11 Normal 5-15 [facility] Comment on above: Performed By: #### L 100.0100, L501.2450, L501.5200, L500.4050 ####[facility] [address] [place], [address] GFR/1.73 sq M.predicted among non-blacks MDRD (S/P/Bld) [Vol rate/Area] 12 mL/min/{1.73_m2} Low >60 [facility] Comment on above: Result Comment: mL/m in/1.73m2 CKD-EPI Creatinine Equation (2020) Performed By: #### L 100.0100, L501.2450, L501.5200, L500.4050 ####[facility] [address] [place], [address] Globulin (S) [Mass/Vol] 2.7 g/dL Normal 2.2-4.2 [facility] Comment on above: Performed By: #### L 100.0100, L501.2450, L501.5200, L500.4050 ####[facility] [address] [place], [address] Glucose [Mass/Vol] 113 mg/dL High 70-99 [facility] Comment on above: Performed By: #### L 100.0100, L501.2450, L501.5200, L500.4050 ####[facility] [address] [place], [address] Potassium [Moles/Vol] 3.4 mmol/L Normal 3.3-5.1 [facility] Comment on above: Result Comment: Hemo lysis present, Results??could be affected.?? Performed By: #### L 100.0100, L501.2450, L501.5200, L500.4050 ####[facility] [address] [place], [address] Sodium [Moles/Vol] 141 mmol/L Normal 133-145 [facility] Comment on above: Performed By: #### L 100.0100, L501.2450, L501.5200, L500.4050 ####[facility] [address] [place], [address] T PROT 6.2 g/dL Normal 5.9-8.4 [facility] Comment on above: Performed By: #### L 100.0100, L501.2450, L501.5200, L500.4050 ####[facility] [address] [place], [address] Urea nitrogen [Mass/Vol] 34 mg/dL High 4-19 [facility] Comment on above: Performed By: #### L 100.0100, L501.2450, L501.5200, L500.4050 ####[facility] [address] [place], [address] Emergency Department Summary on 05-08-2025 Emergency Department Summary Normal [facility] Eosinophil percentageOrdered By: Justin Parisi on 05-08-2025 Eosinophils/100 WBC (Bld) 15.1 % High 0-5 [facility] Erythrocyte distribution wid th ratioOrdered By: Seneca Isak on 05-08-2025 Erythrocyte distribution width (RBC) [Ratio] 13.8 % 11.6-14.6 [facility] Erythrocyte distribution wid th standard deviationOrdered By: Justin Andres Becker on 05-08-2025 Erythrocyte distribution width (RBC) [Ratio] 47.4 fl High 35.1-43.9 [facility] Glomerular filtration rate ( GFR) estimation/1.73 sq m using serum, plasma, or whole bOrdered By: Justin Parisi on 05-08-2025 GFR/1.73 sq M.predicted among non-blacks MDRD (S/P/Bld) [Vol rate/Area] 12 mL/min/{1.73_m2} Low >60 [facility] Comment on above: mL/min/1.73m2 CKD-EP I Creatinine Equation (2020) Hematocrit Auto (Bld) [Volum e fraction]Ordered By: Justin Parisi on 05-08-2025 Hematocrit (Bld) [Volume fraction] 37.2 % 37-47 [facility] Hemoglobin measurementOrdere d By: Justin Parisi on 05-08-2025 Hemoglobin (Bld) [Mass/Vol] 11.2 g/dL Low 12.0-15.0 [facility] Immature granulocytes/100 WB C Auto (Bld)Ordered By: Justin Parisi on 05-08-2025 Immature granulocytes/100 WBC (Bld) 0.200 % 0.0-0.9 [facility] Comment on above: IG% - Immature Granu locytes (promyelocytes, myelocytes and metamyelocytes) > 1% indicates that a LEFT SHIFT is Present. Ketones Test strip Ql (U)Ord ered By: Justin Parisi on 05-08-2025 Ketones Ql (U) Negative Negative [facility] Laboratory - Chemistry and C hemistry - challengeOrdered By: Justin Parisi on 05-08-2025 AST [Catalytic activity/Vol] 22 U/L <32 [facility] Comment on above: Hemolysis present, R esults could be affected. Lipaseon 05-08-2025 Lipase [Catalytic activity/Vol] 12 U/L Low 13-75 [facility] Comment on above: Result Comment: Ry adhikari note:LIPASE revised reference range effective 23.New Lipase methodology. Expected to produce lower valuesthan the previous assay method.NEW Reference Range: 13 - 75 U/L Performed By: #### L 100.0100, L501.2450, L501.5200, L500.4050 ####[facility] [address] [place], [place], [id number] Lipase measurementOrdered By : [facility] on 05-08-2025 Lipase [Catalytic activity/Vol] 12 U/L Low 13-75 [facility] Comment on above: Please note:LIPASE r evised reference range effective 23. New Lipase methodology. Expected to produce lower values than the previous assay method. NEW Reference Range: 13 - 75 U/L MCV (mean corpuscular volume ) determinationOrdered By: Justin Parisi on 05-08-2025 MCV (RBC) [Entitic vol] 93.2 fL 81-99 [facility] Magnesiumon 05-08-2025 Magnesium [Mass/Vol] 2.1 mg/dL Normal 1.5-2.2 [facility] Comment on above: Performed By: #### L 100.0100, L501.2450, L501.5200, L500.4050 ####[facility] [facility] [address] [place], [address] Magnesium measurement (mass/ volume)Ordered By: Justin Parisi on 05-08-2025 Magnesium (Unsp spec) [Mass/Vol] 2.1 mg/dL 1.5-2.2 [facility] Mean corpuscular hemoglobin (MCH) determinationOrdered By: Justin Parisi on 05-08-2025 MCH (RBC) [Entitic mass] 28.1 pg 27.0-32.0 [facility] Mean corpuscular hemoglobin concentration (MCHC) determinationOrdered By: Justin Parisi on 05-08-2025 MCHC (RBC) [Mass/Vol] 30.1 g/dL Low 32-36 [facility] Mean platelet volume determi nationOrdered By: Justin Parisi on 05-08-2025 Platelet mean volume (Bld) [Entitic vol] 9.9 fL 6.2-12.0 [facility] Microscopic analysis of urin e for red blood cells (RBC)Ordered By: Justin Parisi on 05-08-2025 Microscopic analysis of urine for red blood cells (RBC) 0 SEEN /hpf 0-5 [facility] Monocyte percentageOrdered B y: Jsutin Parisi on 05-08-2025 Monocytes/100 WBC (Bld) 7.1 % 0-10 [facility] Mucus LM Ql (Urine sed)Order ed By: Justin Parisi on 05-08-2025 Mucus Ql (Urine sed) 0 SEEN /hpf [facility] Neutrophil percentageOrdered By: Justin Parisi on 05-08-2025 Neutrophils/100 WBC (Bld) 49.3 % 47-70 [facility] Nitrite Test strip Ql (U)Ord ered By: Justin Parisi on 05-08-2025 Nitrite Ql (U) Negative Negative [facility] No Panel InformationOrdered By: Justin Parisi on 05-08-2025 Blood Gas Sample Site Not entered [facility] Blood Gas Specimen Type ROHIT [facility] Oxygen Delivery Device Not entered [facility] Nucleated red blood cell per centageOrdered By: Justin Parisi on 05-08-2025 Nucleated RBC/100 WBC (Bld) [Ratio] 0 % 0-5 [facility] Platelet countOrdered By: Kwadwo Parisi on 05-08-2025 Platelets (Bld) [#/Vol] 154 10*3/uL 150-450 [facility] Potassium measurement (mass/ volume)Ordered By: Justin Parisi on 05-08-2025 Potassium (Unsp spec) [Mass/Vol] 3.4 mmol/L 3.3-5.1 [facility] Comment on above: Hemolysis present, R esults could be affected. Protein Test strip Ql (U)Ord ered By: Justin Parisi on 05-08-2025 Protein Ql (U) 500 mg/dl High Negative [facility] RBC Auto (Bld) [#/Vol]Ordere d By: Justin Parisi on 05-08-2025 RBC (Bld) [#/Vol] 3.99 10*6/uL Low 4.2-5.4 [facility] Serum creatinine measurement (mass/volume)Ordered By: Justin Parisi on 05-08-2025 Creatinine [Mass/Vol] 3.92 mg/dL High 0.70-1.20 [facility] Serum globulin measurementOr dered By: Justin Parisi on 05-08-2025 Globulin (S) [Mass/Vol] 2.7 g/dL 2.2-4.2 [facility] Serum glucose measurement (m ass/volume)Ordered By: Justin Parisi on 05-08-2025 Glucose [Mass/Vol] 113 mg/dL High 70-99 [facility] Serum or plasma alanine martinez otransferase (ALT) measurementOrdered By: Justin Parisi on 05-08-2025 ALT [Catalytic activity/Vol] 9 U/L <35 [facility] Serum or plasma albumin lesly urement (mass/volume)Ordered By: Justin Becker on 05-08-2025 Albumin [Mass/Vol] 3.6 g/dL 3.4-4.8 [facility] Serum or plasma albumin/glob ulin mass ratioOrdered By: Justin Parisi on 05-08-2025 Albumin/Globulin [Mass ratio] 1.3 {ratio} 0.9-2.4 [facility] Serum or plasma alkaline william sphatase measurementOrdered By: Justin Parisi on 05-08-2025 ALP [Catalytic activity/Vol] 63 U/L 35-104 [facility] Serum or plasma calcium lesly urement (mass/volume)Ordered By: Justin Becker on 05-08-2025 Calcium [Mass/Vol] 8.3 mg/dL 7.6-11.0 [facility] Serum or plasma urea nitroge n measurement (mass/volume)Ordered By: Justin Parisi on 05-08-2025 Urea nitrogen [Mass/Vol] 34 mg/dL High 4-19 [facility] Sodium levelOrdered By: Chetan Parisi on 05-08-2025 Sodium [Moles/Vol] 141 mmol/L 133-145 [facility] Squamous epithelial cells de tection in urine sediment by light microscopyOrdered By: Justin Parisi on 05-08-2025 Epithelial cells.squamous LM Ql (Urine sed) 0-5 SEEN /hpf - [facility] Total proteinOrdered By: Vega Parisi on 05-08-2025 Protein [Mass/Vol] 6.2 g/dL 5.9-8.4 [facility] Urinalysis, Completeon 05-08 EPI,SQUAMOUS 0-5 SEEN Normal 5-10 [facility] Comment on above: Order Comment: BONNIE TER SPECIMEN Performed By: #### L 400.0001 ####[facility] [address] [place], [address] BACTERIA 0 SEEN Normal None Seen [facility] Comment on above: Order Comment: BONNIE TER SPECIMEN Performed By: #### L 400.0001 ####[facility] [address] [place], [address] Mucus Ql (Urine sed) 0 SEEN Normal [facility] Comment on above: Order Comment: BONNIE TER SPECIMEN Performed By: #### L 400.0001 ####[facility] [address] [place], [address] RBC 0 SEEN Normal 0-5 [facility] Comment on above: Order Comment: BONNIE TER SPECIMEN Performed By: #### L 400.0001 ####[facility] [address] [place], [address] WBC 0 SEEN Normal 0-5 [facility] Comment on above: Order Comment: BONNIE TER SPECIMEN Performed By: #### L 400.0001 ####[facility] [address] [place], [place], [address] Urine clarityOrdered By: Vega Parisi on 05-08-2025 Clarity (U) Clear Clear [facility] Urine color determinationOrd ered By: Justin Parisi on 05-08-2025 Color (U) Yellow Yellow [facility] Urine glucose detectionOrder ed By: Justin Parisi on 05-08-2025 Glucose Ql (U) 50 mg/dl High Normal [facility] Urine leukocyte esterase det ection by dipstickOrdered By: Justin Parisi on 05-08-2025 Leukocyte esterase Test strip Ql (U) Negative Negative [facility] Urine pHOrdered By: Justin Parekh on 05-08-2025 pH (U) 6.0 [pH] 5.0 - 8.0 [facility] Urine sediment bacteria coun t by microscopy (number/high power field)Ordered By: Justin Parisi on 05-08-2025 Bacteria LM.HPF (Urine sed) [#/Area] 0 /[HPF] None Seen [facility] Urine specific gravity measu rementOrdered By: Justin Parisi on 05-08-2025 Specific gravity (U) [Rel density] 1.020 1.002-1.030 [facility] Urine urobilinogen measureme ntOrdered By: Justin Parisi on 05-08-2025 Urobilinogen Ql (U) Normal mg/dl Normal [facility] Venous Blood Gason 5 Blood Gas Type ROHIT Normal [facility] Comment on above: Performed By: #### L 900.0810 ####[facility] [address] [place], [address] CO2 [Moles/Vol] 37 mmol/L High 23-33 [facility] Comment on above: Performed By: #### L 8999.0810 ####[facility] [address] [place], [address] FI02 2.0 Normal [facility] Comment on above: Performed By: #### L 900.0810 ####[facility] [address] [place], [address] HCO3 (Bld) [Moles/Vol] 35 mmol/L High 22-26 [facility] Comment on above: Performed By: #### L 900.0810 ####[facility] [address] [place], [address] O2 Delivery Dev Not entered Normal [facility] Comment on above: Performed By: #### L 9000.0810 ####[facility] [address] [place], [address] SITE Not entered [facility] Comment on above: Performed By: #### L 900.0810 ####[facility] [address] [place], [address] VBG BE 8 mmol/L High -1.0-3.5 [facility] Comment on above: Performed By: #### L 900.0810 ####[facility] [address] [place], [place], [id number] VBG pCO2 67.0 mmHg High 41-51 [facility] Comment on above: Performed By: #### L 9000.0810 ####[facility] [address] [place], [place], [id number] VBG pH 7.32 Normal 7.32-7.42 [facility] Comment on above: Performed By: #### L 9000.0810 ####[facility] [address] [place], [address] VBG PO2 27 mmHg Normal 25-40 [facility] Comment on above: Performed By: #### L 9000.0810 ####[facility] [address] [place], [place], [id number] VBG SO2 44 Low 50-70 [facility] Comment on above: Performed By: #### L 9000.0810 ####[facility] [address] [place], [place], [id number] Venous blood base excess allyn surementOrdered By: Justin Parisi on 05-08-2025 Base excess Calc (BldV) [Moles/Vol] 8 mmol/L High -1.0-3.5 [facility] Venous blood bicarbonate allyn surementOrdered By: Justin Parisi on 05-08-2025 HCO3 (Bld) [Moles/Vol] 35 mmol/L High 22-26 [facility] Venous blood oxygen saturati on measurementOrdered By: Justin Parisi on 05-08-2025 Oxygen saturation in Blood 44 % Low 50-70 [facility] Venous blood pH measurementO rdered By: Justin Parisi on 05-08-2025 pH (BldV) 7.32 [pH] 7.32-7.42 [facility] Venous blood partial pressur e of carbon dioxide measurementOrdered By: Justin Parisi on 05-08-2025 CO2 (BldV) [Partial pressure] 67.0 mm[Hg] High 41-51 [facility] Venous blood partial pressur e of oxygen measurementOrdered By: Justin Becker on 05-08-2025 Oxygen (BldV) [Partial pressure] 27 mm[Hg] 25-40 [facility] White blood cell (WBC) count Ordered By: Justin Parisi on 05-08-2025 WBC (Bld) [#/Vol] 5.9 10*3/uL 4.4-11.0 [facility] White blood cell countOrdere d By: Justin Parisi on 05-08-2025 White blood cell count 0 SEEN /hpf 0-5 [facility] Potassiumon 04-11-2025 Potassium [Moles/Vol] 3.7 mmol/L Normal 3.3-5.1 [facility] Comment on above: Performed By: #### L 501.5600 ####[facility] [address] [place], [place], [id number] Potassium measurement (mass/ volume)Ordered By: Christy Huerta on 04-11-2025 Potassium (Unsp spec) [Mass/Vol] 3.7 mmol/L 3.3-5.1 [facility] 12 Lead EKGon 04-09-2025 12 Lead EKG Normal [facility] Anion gap in Serum or Plasma Ordered By: Milind Heath on 04-09-2025 Anion gap [Moles/Vol] 8 mmol/L 5-15 [facility] BUN/creatinine ratioOrdered By: Milind Heath on 04-09-2025 Urea nitrogen/Creatinine [Mass ratio] 5.6 mg/mg Low 10-20 [facility] Basic Metabolic Profile (BMP )on 04-09-2025 BUN/CRE 5.6 RATIO Low 10-20 [facility] Comment on above: Performed By: #### L 500.2500, L501.5200 ####[facility] [address] [place], [place], [id number] Calcium [Mass/Vol] 9.2 mg/dL Normal 7.6-11.0 [facility] Comment on above: Performed By: #### L 500.2500, L501.5200 ####[facility] [address] [place], [address] Chloride [Moles/Vol] 102 mmol/L Normal 98-108 [facility] Comment on above: Performed By: #### L 500.2500, L501.5200 ####[facility] [address] [place], [address] CO2 [Moles/Vol] 31.4 mmol/L Normal 21.0-32.0 [facility] Comment on above: Performed By: #### L 500.2500, L501.5200 ####[facility] [address] [place], [address] Creatinine [Mass/Vol] 3.39 mg/dL High 0.70-1.20 [facility] Comment on above: Performed By: #### L 500.2500, L501.5200 ####[facility] [address] [place], [address] GAP 8 Normal 5-15 [facility] Comment on above: Performed By: #### L 500.2500, L501.5200 ####[facility] [address] [place], [address] GFR/1.73 sq M.predicted among non-blacks MDRD (S/P/Bld) [Vol rate/Area] 14 mL/min/{1.73_m2} Low >60 [facility] Comment on above: Result Comment: mL/m in/1.73m2 CKD-EPI Creatinine Equation (2020) Performed By: #### L 500.2500, L501.5200 ####[facility] [address] [place], [address] Glucose [Mass/Vol] 151 mg/dL High 70-99 [facility] Comment on above: Performed By: #### L 500.2500, L501.5200 ####[facility] [address] [place], [address] Potassium [Moles/Vol] 2.8 mmol/L Low 3.3-5.1 [facility] Comment on above: Result Comment: Hemo lysis present, Results??could be affected.?? Performed By: #### L 500.2500, L501.5200 ####[facility] [address] [place], [address] Sodium [Moles/Vol] 142 mmol/L Normal 133-145 [facility] Comment on above: Performed By: #### L 500.2500, L501.5200 ####[facility] [address] [place], [address] Urea nitrogen [Mass/Vol] 19 mg/dL Normal 4-19 [facility] Comment on above: Performed By: #### L 500.2500, L501.5200 ####[facility] [address] [place], [address] Carbon dioxide, total [Moles /volume] in Central venous bloodOrdered By: Milind Heath on 04-09-2025 CO2 [Moles/Vol] 31.4 mmol/L 21.0-32.0 [facility] Chloride assayOrdered By: Ug o Heath on 04-09-2025 Chloride [Moles/Vol] 102 mmol/L 98-108 [facility] Emergency Department Summary on 04-09-2025 Emergency Department Summary Normal [facility] Glomerular filtration rate ( GFR) estimation/1.73 sq m using serum, plasma, or whole bOrdered By: Milind Heath on 04-09-2025 GFR/1.73 sq M.predicted among non-blacks MDRD (S/P/Bld) [Vol rate/Area] 14 mL/min/{1.73_m2} Low >60 [facility] Comment on above: mL/min/1.73m2 CKD-EP I Creatinine Equation (2020) Magnesiumon 04-09-2025 Magnesium [Mass/Vol] 2.2 mg/dL Normal 1.5-2.2 [facility] Comment on above: Performed By: #### L 500.2500, L501.5200 ####[facility] [address] [facility] [place], [address] Magnesium measurement (mass/ volume)Ordered By: Milind Heath on 04-09-2025 Magnesium (Unsp spec) [Mass/Vol] 2.2 mg/dL 1.5-2.2 [facility] Potassiumon 04-09-2025 Potassium [Moles/Vol] 2.3 mmol/L Invalid Interpretation Code 3.3-5.1 [facility] Comment on above: Result Comment: Crit ical Result(s) Called at:1140 by:??August Ibanez to Dr. Alvarez. Results read back by same. Performed By: #### L 501.5600 ####[facility] [address] [facility] [place], [address] Potassium measurement (mass/ volume)Ordered By: Milind Heath on 04-09-2025 Potassium (Unsp spec) [Mass/Vol] 2.8 mmol/L Low 3.3-5.1 [facility] Comment on above: Hemolysis present, R esults could be affected. Potassium measurement (mass/ volume)Ordered By: Christy Huerta on 04-09-2025 Potassium (Unsp spec) [Mass/Vol] 2.3 mmol/L Low 3.3-5.1 [facility] Comment on above: Critical Result(s) C alled at:1140 by: August Ibanez to Dr. Sarah Huerta. Results read back by same. Serum creatinine measurement (mass/volume)Ordered By: Milind Heath on 04-09-2025 Creatinine [Mass/Vol] 3.39 mg/dL High 0.70-1.20 [facility] Serum glucose measurement (m ass/volume)Ordered By: Milindkyle Heath on 04-09-2025 Glucose [Mass/Vol] 151 mg/dL High 70-99 [facility] Serum or plasma calcium lesly urement (mass/volume)Ordered By: Milind Heath on 04-09-2025 Calcium [Mass/Vol] 9.2 mg/dL 7.6-11.0 [facility] Serum or plasma urea nitroge n measurement (mass/volume)Ordered By: Milind Heath on 04-09-2025 Urea nitrogen [Mass/Vol] 19 mg/dL 4- [facility] Sodium levelOrdered By: Milind Heath on 04-09-2025 Sodium [Moles/Vol] 142 mmol/L 133-145 [facility] Surgery Visit Reporton 03-22 Surgery Visit Report Normal [facility] Endocrinology Visit Reporton 01-27-2025 Endocrinology Visit Report Normal [facility] Chest without Contraston Chest without Contrast Normal [facility] Surgery Visit Reporton 01-11 Surgery Visit Report Normal [facility] Basic Metabolic Profile (BMP )on 01-07-2025 BUN Normal - [facility] Comment on above: Result Comment: Canc elled via OM: Order cancelled - Patient discharged Performed By: #### L 100.0100, L500.2500 ####[facility] [address] [place], [address] BUN/CRE Normal 10-20 [facility] Comment on above: Result Comment: Canc elled via OM: Order cancelled - Patient discharged Performed By: #### L 100.0100, L500.2500 ####[facility] [address] [place], [address] Calcium Normal 7.6-11.0 [facility] Comment on above: Result Comment: Canc elled via OM: Order cancelled - Patient discharged Performed By: #### L 100.0100, L500.2500 ####[facility] [address] [place], [address] CL Normal 98-108 [facility] Comment on above: Result Comment: Canc elled via OM: Order cancelled - Patient discharged Performed By: #### L 100.0100, L500.2500 ####[facility] [address] [place], [address] CO2 Normal 21.0-32.0 [facility] Comment on above: Result Comment: Canc elled via OM: Order cancelled - Patient discharged Performed By: #### L 100.0100, L500.2500 ####[facility] [address] [place], [address] CREAT,SERUM Normal 0.70-1.20 [facility] Comment on above: Result Comment: Canc elled via OM: Order cancelled - Patient discharged Performed By: #### L 100.0100, L500.2500 ####[facility] [address] [place], [address] eGFR Normal >60 [facility] Comment on above: Result Comment: Canc elled via OM: Order cancelled - Patient discharged Performed By: #### L 100.0100, L500.2500 ####[facility] [address] [place], [address] GAP Normal 5-15 [facility] Comment on above: Result Comment: Canc elled via OM: Order cancelled - Patient discharged Performed By: #### L 100.0100, L500.2500 ####[facility] [address] [place], [address] GLU Normal 70-99 [facility] Comment on above: Result Comment: Canc elled via OM: Order cancelled - Patient discharged Performed By: #### L 100.0100, L500.2500 ####[facility] [address] [place], [address] Potassium Normal 3.3-5.1 [facility] Comment on above: Result Comment: Canc elled via OM: Order cancelled - Patient discharged Performed By: #### L 100.0100, L500.2500 ####[facility] [address] [place], [address] Basic Metabolic Profile (BMP) Normal 133-145 [facility] Comment on above: Result Comment: Canc elled via OM: Order cancelled - Patient discharged Performed By: #### L 100.0100, L500.2500 ####[facility] [address] [place], [address] CBC W/Diff, Automatedon 03-0 -2024 Absolute Neut Normal 2.0-7.7 [facility] Comment on above: Result Comment: Canc elled via OM: Order cancelled - Patient discharged Performed By: #### L 100.0100, L500.2500 ####[facility] [address] [place], [address] HCT Normal 37-47 [facility] Comment on above: Result Comment: Canc elled via OM: Order cancelled - Patient discharged Performed By: #### L 100.0100, L500.2500 ####[facility] [address] [place], [address] HGB Normal 12.0-15.0 [facility] Comment on above: Result Comment: Canc elled via OM: Order cancelled - Patient discharged Performed By: #### L 100.0100, L500.2500 ####[facility] [address] [place], [address] MCH Normal 27.0-32.0 [facility] Comment on above: Result Comment: Canc elled via OM: Order cancelled - Patient discharged Performed By: #### L 100.0100, L500.2500 ####[facility] [address] [place], [address] MCHC Normal 32-36 [facility] Comment on above: Result Comment: Canc elled via OM: Order cancelled - Patient discharged Performed By: #### L 100.0100, L500.2500 ####[facility] [address] [place], [address] MCV Normal 81-99 [facility] Comment on above: Result Comment: Canc elled via OM: Order cancelled - Patient discharged Performed By: #### L 100.0100, L500.2500 ####[facility] [address] [place], [address] NEUT% Normal 47-70 [facility] Comment on above: Result Comment: Canc elled via OM: Order cancelled - Patient discharged Performed By: #### L 100.0100, L500.2500 ####[facility] [address] [place], [address] PLT Normal 150-450 [facility] Comment on above: Result Comment: Canc elled via OM: Order cancelled - Patient discharged Performed By: #### L 100.0100, L500.2500 ####[facility] [address] [place], [address] RBC Normal 4.2-5.4 [facility] Comment on above: Result Comment: Canc elled via OM: Order cancelled - Patient discharged Performed By: #### L 100.0100, L500.2500 ####[facility] [address] [place], [address] RDW CV Normal 11.6-14.6 [facility] Comment on above: Result Comment: Canc elled via OM: Order cancelled - Patient discharged Performed By: #### L 100.0100, L500.2500 ####[facility] [address] [place], [address] RDW SD Normal 35.1-43.9 [facility] Comment on above: Result Comment: Canc elled via OM: Order cancelled - Patient discharged Performed By: #### L 100.0100, L500.2500 ####[facility] [address] [place], [address] WBC Normal 4.4-11.0 [facility] Comment on above: Result Comment: Canc elled via OM: Order cancelled - Patient discharged Performed By: #### L 100.0100, L500.2500 ####[facility] [address] [place], [address] Absolute lymphocyte countOrd ered By: He Cat on 01-06-2025 Lymphocytes Auto (Unsp spec) [#/Vol] 0.66 10*3/uL Low 0.83-4.51 [facility] Absolute neutrophil countOrd ered By: He Cat on 01-06-2025 Absolute neutrophil count 9.7 X10^3/uL High 2.0-7.7 [facility] Anion gap [Moles/Vol]Ordered By: He Cat on 01-06-2025 Anion gap in Serum or Plasma 12 5-15 [facility] Anion gap in Serum or Plasma Ordered By: He Cat on 01-06-2025 Anion gap [Moles/Vol] 12 mmol/L - [facility] Automated lymphocyte count a s percentage of total leukocytesOrdered By: He Cat on 01-06-2025 Lymphocytes/100 WBC Auto (Unsp spec) 6.0 % Low 19-41 [facility] BUN/creatinine ratioOrdered By: He Cat on 01-06-2025 Urea nitrogen/Creatinine [Mass ratio] 13.0 mg/mg 10- [facility] BUN/creatinine ratio 13.0 RATIO 10-20 [facility] Basic Metabolic Profile (BMP )on 01-06-2025 BUN/CRE 13.0 RATIO Normal 10-20 [facility] Comment on above: Performed By: #### L 500.2500, L100.0100 ####[facility] [address] [place], [address] Calcium [Mass/Vol] 8.9 mg/dL Normal 7.6-11.0 [facility] Comment on above: Performed By: #### L 500.2500, L100.0100 ####[facility] [address] [place], [address] Chloride [Moles/Vol] 101 mmol/L Normal 98-108 [facility] Comment on above: Performed By: #### L 500.2500, L100.0100 ####[facility] [address] [place], [address] CO2 [Moles/Vol] 21.1 mmol/L Normal 21.0-32.0 [facility] Comment on above: Performed By: #### L 500.2500, L100.0100 ####[facility] [address] [place], [address] Creatinine [Mass/Vol] 3.23 mg/dL High 0.70-1.20 [facility] Comment on above: Performed By: #### L 500.2500, L100.0100 ####[facility] [address] [place], [address] ECRCL 12.75 ml/min Low 50-250 [facility] Comment on above: Performed By: #### L 500.2500, L100.0100 ####[facility] [address] [place], [address] GAP 12 Normal 5-15 [facility] Comment on above: Performed By: #### L 500.2500, L100.0100 ####[facility] [address] [place], [address] GFR/1.73 sq M.predicted among non-blacks MDRD (S/P/Bld) [Vol rate/Area] 15 mL/min/{1.73_m2} Low >60 [facility] Comment on above: Result Comment: mL/m in/1.73m2 CKD-EPI Creatinine Equation (2020) Performed By: #### L 500.2500, L100.0100 ####[facility] [address] [place], [address] Glucose [Mass/Vol] 337 mg/dL High 70-99 [facility] Comment on above: Performed By: #### L 500.2500, L100.0100 ####[facility] [address] [place], [address] Potassium [Moles/Vol] 5.6 mmol/L High 3.3-5.1 [facility] Comment on above: Performed By: #### L 500.2500, L100.0100 ####[facility] [address] [place], [address] Sodium [Moles/Vol] 134 mmol/L Normal 133-145 [facility] Comment on above: Performed By: #### L 500.2500, L100.0100 ####[facility] [address] [place], [address] Urea nitrogen [Mass/Vol] 42 mg/dL High 4-19 [facility] Comment on above: Performed By: #### L 500.2500, L100.0100 ####[facility] [address] [place], [address] Basophil percentageOrdered B y: He Pradeep on 01-06-2025 Basophils/100 WBC (Bld) 0.1 % 0-1 [facility] Bedside Glucoseon 01-06-2025 FINGERSTICK GLU 374 mg/dL High 74-106 [facility] Comment on above: Result Comment: SHELLY GEMENT OF PATIENT CARE PER NURSING PROTOCOL Performed By: #### L 501.080 ####[facility] [address] [place], [address] FINGERSTICK GLU 309 mg/dL High 74-106 [facility] Comment on above: Result Comment: SHELLY GEMENT OF PATIENT CARE PER NURSING PROTOCOL Performed By: #### L 501.080 ####[facility] [address] [place], [address] CBC W/Diff, Automatedon Absolute Lymph 0.66 X10 3/uL Low 0.83-4.51 [facility] Comment on above: Performed By: #### L 500.2500, L100.0100 ####[facility] [address] [place], [address] Absolute Neut 9.7 X10 3/uL High 2.0-7.7 [facility] Comment on above: Performed By: #### L 500.2500, L100.0100 ####[facility] [address] [place], [address] Basophils/100 WBC (Bld) 0.1 % Normal 0-1 [facility] Comment on above: Performed By: #### L 500.2500, L100.0100 ####[facility] [address] [place], [address] Eosinophils/100 WBC (Bld) 0.1 % Normal 0-5 [facility] Comment on above: Performed By: #### L 500.2500, L100.0100 ####[facility] [address] [place], [address] Erythrocyte distribution width (RBC) [Ratio] 13.0 % Normal 11.6-14.6 [facility] Comment on above: Performed By: #### L 500.2500, L100.0100 ####[facility] [address] [place], [address] Hematocrit (Bld) [Volume fraction] 28.8 % Low 37-47 [facility] Comment on above: Performed By: #### L 500.2500, L100.0100 ####[facility] [address] [place], [address] Hemoglobin (Bld) [Mass/Vol] 9.1 g/dL Low 12.0-15.0 [facility] Comment on above: Performed By: #### L 500.2500, L100.0100 ####[facility] [address] [place], [address] IG% 1.000 High 0.0-0.9 [facility] Comment on above: Result Comment: IG% - Immature Granulocytes (promyelocytes, myelocytes andmetamyelocytes) > 1% indicates that a LEFT SHIFT is Present. Performed By: #### L 500.2500, L100.0100 ####[facility] [address] [place], [address] Lymphocytes/100 WBC (Bld) 6.0 % Low 19-41 [facility] Comment on above: Performed By: #### L 500.2500, L100.0100 ####[facility] [address] [place], [address] MCH (RBC) [Entitic mass] 30.4 pg Normal 27.0-32.0 [facility] Comment on above: Performed By: #### L 500.2500, L100.0100 ####[facility] [address] [place], [address] MCHC (RBC) [Mass/Vol] 31.6 g/dL Low 32-36 [facility] Comment on above: Performed By: #### L 500.2500, L100.0100 ####[facility] [address] [place], [address] MCV (RBC) [Entitic vol] 96.3 fL Normal 81-99 [facility] Comment on above: Performed By: #### L 500.2500, L100.0100 ####[facility] [address] [place], [address] Monocytes/100 WBC (Bld) 4.8 % Normal 0-10 [facility] Comment on above: Performed By: #### L 500.2500, L100.0100 ####[facility] [address] [place], [address] Neutrophils/100 WBC (Bld) 88.0 % High 47-70 [facility] Comment on above: Performed By: #### L 500.2500, L100.0100 ####[facility] [address], [address] Nucleated RBC (Bld) [#/Vol] 0 10*3/uL Normal 0-5 [facility] Comment on above: Performed By: #### L 500.2500, L100.0100 ####[facility] [address] [place], [address] Platelet mean volume (Bld) [Entitic vol] 9.8 fL Normal 6.2-12.0 [facility] Comment on above: Performed By: #### L 500.2500, L100.0100 ####[facility] [address] [place], [address] Platelets (Bld) [#/Vol] 229 10*3/uL Normal 150-450 [facility] Comment on above: Performed By: #### L 500.2500, L100.0100 ####[facility] [address] [place], [address] RBC (Bld) [#/Vol] 2.99 10*6/uL Low 4.2-5.4 [facility] Comment on above: Performed By: #### L 500.2500, L100.0100 ####[facility] [address] [place], [address] RDW SD 45.0 fl High 35.1-43.9 [facility] Comment on above: Performed By: #### L 500.2500, L100.0100 ####[facility] [address] [place], [address] WBC (Bld) [#/Vol] 11.0 10*3/uL Normal 4.4-11.0 [facility] Comment on above: Performed By: #### L 500.2500, L100.0100 ####[facility] [address] [place], [address] Calcium [Mass/Vol]Ordered By : He Cat on 01-06-2025 Serum or plasma calcium measurement (mass/volume) 8.9 mg/dL 7.6-11.0 [facility] Carbon dioxide, total [Moles /volume] in Central venous bloodOrdered By: He Cat on 01-06-2025 CO2 [Moles/Vol] 21.1 mmol/L 21.0-32.0 [facility] Carbon dioxide, total [Moles/volume] in Central venous blood 21.1 mmol/L 21.0-32.0 [facility] Chloride assayOrdered By: Sarbjit Cat on 01-06-2025 Chloride [Moles/Vol] 101 mmol/L 98-108 [facility] Chloride assay 101 mmol/L 98-108 [facility] Creatinine [Mass/Vol]Ordered By: He Cat on 01-06-2025 Serum creatinine measurement (mass/volume) 3.23 mg/dL High 0.70-1.20 [facility] Discharge Instructionon Discharge Instruction Normal [facility] Eosinophil percentageOrdered By: He Cat on 01-06-2025 Eosinophils/100 WBC (Bld) 0.1 % 0-5 [facility] Eosinophil percentage 0.1 % 0-1 [facility] Erythrocyte distribution wid th (RBC) [Entitic vol]Ordered By: He Cat on 01-06-2025 Erythrocyte distribution width standard deviation 45.0 fl High 35.1-43.9 [facility] Erythrocyte distribution wid th (RBC) [Ratio]Ordered By: He Cat on 01-06-2025 Erythrocyte distribution width ratio 13.0 % 11.6-14.6 [facility] Erythrocyte distribution wid th ratioOrdered By: He Cat on 01-06-2025 Erythrocyte distribution width (RBC) [Ratio] 13.0 % 11.6-14.6 [facility] Erythrocyte distribution wid th standard deviationOrdered By: He Cat on 01-06-2025 Erythrocyte distribution width (RBC) [Ratio] 45.0 fl High 35.1-43.9 [facility] Estimation of creatinine abdulkadir aranceOrdered By: He Cat on 01-06-2025 Estimation of creatinine clearance 12.75 ml/min Low 50-250 [facility] GFR/1.73 sq M.predicted kris g non-blacks MDRD (S/P/Bld) [Vol rate/Area]Ordered By: He Cat on 01-06-2025 Glomerular filtration rate (GFR) estimation/1.73 sq m using serum, plasma, or whole b 15 Low >60 [facility] Glomerular filtration rate ( GFR) estimation/1.73 sq m using serum, plasma, or whole bOrdered By: He Cat on 01-06-2025 GFR/1.73 sq M.predicted among non-blacks MDRD (S/P/Bld) [Vol rate/Area] 15 mL/min/{1.73_m2} Low >60 [facility] Glucose [Mass/Vol]Ordered By : He Cat on 01-06-2025 Serum glucose measurement (mass/volume) 337 mg/dL High 70-99 [facility] Glucose measurement at bedsi deOrdered By: He Cat on 01-06-2025 Glucose [Mass/Vol] 374 mg/dL High 74-106 [facility] Glucose measurement at bedside 374 mg/dL High 74-106 [facility] Hematocrit Auto (Bld) [Volum e fraction]Ordered By: He Cat on 01-06-2025 Hematocrit (Bld) [Volume fraction] 28.8 % Low 37-47 [facility] Automated blood hematocrit (percentage) 28.8 % Low 37-47 [facility] Hemoglobin measurementOrdere d By: He Cat on 01-06-2025 Hemoglobin (Bld) [Mass/Vol] 9.1 g/dL Low 12.0-15.0 [facility] Hemoglobin measurement 9.1 g/dL Low 12.0-15.0 [facility] Immature granulocytes/100 WB C Auto (Bld)Ordered By: He Cat on 01-06-2025 Immature granulocytes/100 WBC (Bld) 1.000 % High 0.0-0.9 [facility] Automated immature granulocyte percentage 1.000 % High 0.0-0.9 [facility] Lymphocytes Auto (Unsp spec) [#/Vol]Ordered By: He Cat on 01-06-2025 Absolute lymphocyte count 0.66 X10^3/uL Low 0.83-4.51 [facility] Lymphocytes/100 WBC Auto (Un sp spec)Ordered By: He Cat on 01-06-2025 Automated lymphocyte count as percentage of total leukocytes 6.0 % Low 19-41 [facility] MCV (RBC) [Entitic vol]Order ed By: He Cat on 01-06-2025 MCV (mean corpuscular volume) determination 96.3 fL 81-99 [facility] MCV (mean corpuscular volume ) determinationOrdered By: He Cat on 01-06-2025 MCV (RBC) [Entitic vol] 96.3 fL 81-99 [facility] Mean corpuscular hemoglobin (MCH) determinationOrdered By: He Cat on 01-06-2025 MCH (RBC) [Entitic mass] 30.4 pg 27.0-32.0 [facility] Mean corpuscular hemoglobin (MCH) determination 30.4 pg 27.0-32.0 [facility] Mean corpuscular hemoglobin concentration (MCHC) determinationOrdered By: He Cat on 01-06-2025 Mean corpuscular hemoglobin concentration (MCHC) determination 31.6 g/dL Low 32-36 [facility] Mean platelet volume determi nationOrdered By: He Cat on 01-06-2025 Mean platelet volume determination 9.8 fl 6.2-12.0 [facility] Monocyte percentageOrdered B y: He Cat on 01-06-2025 Monocytes/100 WBC (Bld) 4.8 % 0-10 [facility] Monocyte percentage 4.8 % 0-10 [facility] Neutrophil percentageOrdered By: He Cat on 01-06-2025 Neutrophils/100 WBC (Bld) 88.0 % High 47-70 [facility] Neutrophil percentage 88.0 % High 47-70 [facility] Nucleated red blood cell per centageOrdered By: He Cat on 01-06-2025 Nucleated red blood cell percentage 0 % 0-5 [facility] Platelet countOrdered By: Sarbjit Cat on 01-06-2025 Platelets (Bld) [#/Vol] 229 10*3/uL 150-450 [facility] Platelet count 229 K/mm3 150-450 [facility] Potassium (Unsp spec) [Mass/ Vol]Ordered By: He Cat on 01-06-2025 Potassium measurement (mass/volume) 5.6 mmol/L High 3.3-5.1 [facility] Potassium measurement (mass/ volume)Ordered By: He Cat on 01-06-2025 Potassium (Unsp spec) [Mass/Vol] 5.6 mmol/L High 3.3-5.1 [facility] RBC Auto (Bld) [#/Vol]Ordere d By: He Cat on 01-06-2025 RBC (Bld) [#/Vol] 2.99 10*6/uL Low 4.2-5.4 [facility] Automated blood erythrocyte count 2.99 M/mm3 Low 4.2-5.4 [facility] Serum creatinine measurement (mass/volume)Ordered By: He Cat on 01-06-2025 Creatinine [Mass/Vol] 3.23 mg/dL High 0.70-1.20 [facility] Serum glucose measurement (m ass/volume)Ordered By: He Cat on 01-06-2025 Glucose [Mass/Vol] 337 mg/dL High 70-99 [facility] Serum or plasma calcium lesly urement (mass/volume)Ordered By: He Cat on 01-06-2025 Calcium [Mass/Vol] 8.9 mg/dL 7.6-11.0 [facility] Serum or plasma urea nitroge n measurement (mass/volume)Ordered By: He Cat on 01-06-2025 Urea nitrogen [Mass/Vol] 42 mg/dL High 4- [facility] Sodium levelOrdered By: Samantha Cat on 01-06-2025 Sodium [Moles/Vol] 134 mmol/L 133-145 [facility] Sodium level 134 mmol/L 133-145 [facility] Urea nitrogen [Mass/Vol]Orde red By: He Cat on 01-06-2025 Serum or plasma urea nitrogen measurement (mass/volume) 42 mg/dL High 4-19 [facility] White blood cell (WBC) count Ordered By: He Cat on 01-06-2025 WBC (Bld) [#/Vol] 11.0 10*3/uL 4.4-11.0 [facility] White blood cell (WBC) count 11.0 K/mm3 4.4-11.0 [facility] Albumin [Mass/Vol]Ordered By : Christy Huerta on 01-05-2025 Serum or plasma albumin measurement (mass/volume) 3.4 g/dL 3.4-4.8 [facility] Arterial patency Wrist arter y --pre arterial punctureOrdered By: He Cat on 01-05-2025 Assessment of wrist artery patency prior to arterial puncture Positive [facility] Assessment of wrist artery p atency prior to arterial punctureOrdered By: He Cat on 01-05-2025 Arterial patency Wrist artery --pre arterial puncture Positive [facility] Base excess Calc (BldV) [Mol es/Vol]Ordered By: He Cat on 01-05-2025 Blood base excess determination -1 mmol/L -2-2 [facility] Bedside Glucoseon 01-05-2025 FINGERSTICK GLU 338 mg/dL High [address] [place] [address] Comment on above: Result Comment: SHELLY GEMENT OF PATIENT CARE PER NURSING PROTOCOL Performed By: #### L 501.080 ####[facility] [address] [facility] [address] FINGERSTICK GLU 292 mg/dL High [address] [place] [address] Comment on above: Result Comment: SHELLY GEMENT OF PATIENT CARE PER NURSING PROTOCOL Performed By: #### L 501.080 ####[facility] [address] [facility] [address] FINGERSTICK GLU 419 mg/dL High [address] [place] [address] Comment on above: Result Comment: SHELLY GEMENT OF PATIENT CARE PER NURSING PROTOCOL Performed By: #### L 501.080 ####[facility] [address] [facility] [place] [address] FINGERSTICK GLU 286 mg/dL High [address] [place] [address] Comment on above: Result Comment: SHELLY GEMENT OF PATIENT CARE PER NURSING PROTOCOL Performed By: #### L 501.080 ####[facility] [address] [place], [address] Blood Gases by [facility] 025 TINY TEST Positive Normal [facility] Comment on above: Performed By: #### L 9000.0800 ####[facility] [address] [place], [address] Base excess Calc (Bld) [Moles/Vol] -1 mmol/L Normal -2 to +2 [facility] Comment on above: Performed By: #### L 9000.0800 ####[facility] [address] [place], [address] Blood Gas Type ART Normal [facility] Comment on above: Performed By: #### L 9000.0800 ####[facility] [address] [place], [address] Comment Normal [facility] Comment on above: Result Comment: Bipa p settings of IPAP 18, EPAP 8, fio2 30 % Performed By: #### L 9000.0800 ####[facility] [address] [place], [address] FI02 30.0 Normal [facility] Comment on above: Performed By: #### L 9000.0800 ####[facility] [address] [place], [address] Mode Not entered Normal [facility] Comment on above: Performed By: #### L 9000.0800 ####[facility] [address] [place], [address] O2 Delivery Dev BiPAP Normal [facility] Comment on above: Performed By: #### L 9000.0800 ####[facility] [address] [place], [address] pCO2 55.0 mmHg High 35-45 [facility] Comment on above: Performed By: #### L 9000.0800 ####[facility] [address] [place], [address] pH (Bld) 7.28 [pH] Low 7.35-7.45 [facility] Comment on above: Performed By: #### L 9000.0800 ####[facility] [address] [place], [address] PO2 87 mmHG Normal 75-100 [facility] Comment on above: Performed By: #### L 9000.0800 ####[facility] [address] [place], [address] SITE L Radial Normal [facility] Comment on above: Performed By: #### L 9000.0800 ####[facility] [address] [place], [address] SO2 95 Normal 95-99 [facility] Comment on above: Performed By: #### L 9000.0800 ####[facility] [address] [place], [address] Blood base excess determinat ionOrdered By: He Cat on 01-05-2025 Base excess Calc (BldV) [Moles/Vol] -1 mmol/L -2-2 [facility] Blood bicarbonate measuremen tOrdered By: He Cat on 01-05-2025 HCO3 (Bld) [Moles/Vol] 25.6 mmol/L Normal - [facility] Comment on above: Performed By: #### L 9000.0800 ####[facility] [address] [place], [address] Blood bicarbonate measurement 25.6 mmol/L - [facility] CBC-Complete Blood Cnt No Di ffon 01-05-2025 Erythrocyte distribution width (RBC) [Ratio] 12.9 % Normal 11.6-14.6 [facility] Comment on above: Performed By: #### L 500.3600, L100.0500 ####[facility] [address] [place], [address] Hematocrit (Bld) [Volume fraction] 29.6 % Low 37-47 [facility] Comment on above: Performed By: #### L 500.3600, L100.0500 ####[facility] [address] [place], [id number] Hemoglobin (Bld) [Mass/Vol] 9.4 g/dL Low 12.0-15.0 [facility] Comment on above: Performed By: #### L 500.3600, L100.0500 ####[facility] [address] [place], [id number] MCH (RBC) [Entitic mass] 30.3 pg Normal 27.0-32.0 [facility] Comment on above: Performed By: #### L 500.3600, L100.0500 ####[facility] [address] [place], [address] MCHC (RBC) [Mass/Vol] 31.8 g/dL Low 32-36 [facility] Comment on above: Performed By: #### L 500.3600, L100.0500 ####[facility] [address] [place], [address] MCV (RBC) [Entitic vol] 95.5 fL Normal 81-99 [facility] Comment on above: Performed By: #### L 500.3600, L100.0500 ####[facility] [address] [place], [address] Platelet mean volume (Bld) [Entitic vol] 10.0 fL Normal 6.2-12.0 [facility] Comment on above: Performed By: #### L 500.3600, L100.0500 ####[facility] [address] [place], [address] Platelets (Bld) [#/Vol] 235 10*3/uL Normal 150-450 [facility] Comment on above: Performed By: #### L 500.3600, L100.0500 ####[facility] [address] [place], [id number] RBC (Bld) [#/Vol] 3.10 10*6/uL Low 4.2-5.4 [facility] Comment on above: Performed By: #### L 500.3600, L100.0500 ####[facility] [address] [place], [address] RDW SD 44.2 fl High 35.1-43.9 [facility] Comment on above: Performed By: #### L 500.3600, L100.0500 ####[facility] [address] [place], [id number] WBC (Bld) [#/Vol] 10.5 10*3/uL Normal 4.4-11.0 [facility] Comment on above: Performed By: #### L 500.3600, L100.0500 ####[facility] [address] [place], [address] Consultation - Intensiviston 01-05-2025 Consultation - Learning Support Specialist Normal [facility] Determination of fraction of inspired oxygenOrdered By: He Cat on 01-05-2025 Determination of fraction of inspired oxygen 30.0 [facility] HbA1c (Bld) [Mass fraction]O rdered By: He Cat on 01-05-2025 Hemoglobin A1c percentage 6.6 % >5.7 [facility] Hemoglobin A1con 01-05-2025 HbA1c (Bld) [Mass fraction] 6.6 % Normal <=5.6 [facility] Comment on above: Performed By: #### L 501.9985 ####[facility] [address] [place], [id number] Hemoglobin A1c percentageOrd ered By: He Cat on 01-05-2025 HbA1c (Bld) [Mass fraction] 6.6 % >5.7 [facility] L509.7001on 01-05-2025 Procalcitonin 2.31 ng/mL High <=0.10 [facility] Comment on above: Result Comment: Inte rpretation:<0.10-0.25 ng/mL: Antibiotic therapy discouraged. Bacterialinfection unlikely.0.25-0.50 ng/mL: Antibiotic therapy encouraged. Bacterialinfection possible.>0.50 ng/mL: Antibiotic therapy strongly encouraged.Suggestive of presence of bacterial infection.PCT should always be interpreted in the clinical context ofthe patient. Therefore, clinicians should use the PCTresults in conjunction with other laboratory findings andclinical signs of the patient. Performed By: #### L 509.7001 ####[facility] [address] [place], [place], [address] Measurement, pHOrdered By: Isabelle Cat on 01-05-2025 pH (Unsp spec) 7.28 [pH] Low 7.35-7.45 [facility] No Panel InformationOrdered By: He Cat on 01-05-2025 ART [facility] L Radial [facility] Not entered [facility] BiPAP [facility] See comment [facility] No Panel InformationOrdered By: Terrance Alva on 01-05-2025 2.31 ng/mL High <0.11 [facility] Oxygen saturation measuremen tOrdered By: He Cat on 01-05-2025 Oxygen saturation measurement 95 % 95-99 [facility] Partial pressure of carbon d ioxide measurementOrdered By: He Cat on 01-05-2025 Partial pressure of carbon dioxide measurement 55.0 mmHg High 35-45 [facility] Partial pressure of oxygen m easurementOrdered By: He Cat on 01-05-2025 Partial pressure of oxygen measurement 87 mmHG 75-100 [facility] RESPIRATORY PANEL MOLECULARo n 01-05-2025 RP PANEL Normal [facility] Comment on above: Performed By: #### M 100.638 ####[facility] [address] [place], [place], [id number] Renal Profileon 01-05-2025 Albumin [Mass/Vol] 3.4 g/dL Normal 3.4-4.8 [facility] Comment on above: Performed By: #### L 500.3600, L100.0500 ####[facility] [address] [place], [address] BUN/CRE 10.7 RATIO Normal 10-20 [facility] Comment on above: Performed By: #### L 500.3600, L100.0500 ####[facility] [address] [place], [address] Calcium [Mass/Vol] 9.2 mg/dL Normal 7.6-11.0 [facility] Comment on above: Performed By: #### L 500.3600, L100.0500 ####[facility] [address] [place], [address] Chloride [Moles/Vol] 95 mmol/L Low 98-108 [facility] Comment on above: Performed By: #### L 500.3600, L100.0500 ####[facility] [address] [place], [address] CO2 [Moles/Vol] 23.6 mmol/L Normal 21.0-32.0 [facility] Comment on above: Performed By: #### L 500.3600, L100.0500 ####[facility] [address] [place], [address] Creatinine [Mass/Vol] 3.67 mg/dL High 0.70-1.20 [facility] Comment on above: Performed By: #### L 500.3600, L100.0500 ####[facility] [address] [place], [address] ECRCL 11.77 ml/min Low 50-250 [facility] Comment on above: Performed By: #### L 500.3600, L100.0500 ####[facility] [address] [place], [address] GAP 11 Normal 5-15 [facility] Comment on above: Performed By: #### L 500.3600, L100.0500 ####[facility] [address] [place], [address] GFR/1.73 sq M.predicted among non-blacks MDRD (S/P/Bld) [Vol rate/Area] 13 mL/min/{1.73_m2} Low >60 [facility] Comment on above: Result Comment: mL/m in/1.73m2 CKD-EPI Creatinine Equation (2020) Performed By: #### L 500.3600, L100.0500 ####[facility] [address] [place], [address] Glucose [Mass/Vol] 301 mg/dL High 70-99 [facility] Comment on above: Performed By: #### L 500.3600, L100.0500 ####[facility] [address] [place], [address] Potassium [Moles/Vol] 6.1 mmol/L Invalid Interpretation Code 3.3-5.1 [facility] Comment on above: Result Comment: Crit ical Result(s) Called at 01/05/2025-09:34 by Kalia Tong??Results read back by same. Performed By: #### L 500.3600, L100.0500 ####[facility] [address] [place], [address] Sodium [Moles/Vol] 130 mmol/L Low 133-145 [facility] Comment on above: Performed By: #### L 500.3600, L100.0500 ####[facility] [address] [place], [address] Urea nitrogen [Mass/Vol] 39 mg/dL High 4-19 [facility] Comment on above: Performed By: #### L 500.3600, L100.0500 ####[facility] [address] [place], [address] Respiratory pathogens detect ion panel by molecular detection methodOrdered By: Terrance Alva on 01-05-2025 Respiratory pathogens DNA and RNA panel MARISA+probe (Resp) [facility] Serum or plasma albumin lesly urement (mass/volume)Ordered By: Christy Huerta on 01-05-2025 Albumin [Mass/Vol] 3.4 g/dL 3.4-4.8 [facility] Serum or plasma vancomycin m easurement (mass/volume)Ordered By: He Cat on 01-05-2025 Vancomycin [Mass/Vol] 15.1 ug/mL High 0.0-15.0 [facility] Serum phosphorus measurement Ordered By: Christy Huerta on 01-05-2025 Serum phosphorus measurement 4.3 mg/dL 2.7-4.5 [facility] Total carbon dioxide measure mentOrdered By: He Cat on 01-05-2025 CO2 [Moles/Vol] 27 mmol/L Normal [facility] Comment on above: Performed By: #### L 9000.0800 ####[facility] [address] [place], [address] Total carbon dioxide measurement 27 mmol/L [facility] Vancomycin [Mass/Vol]Ordered By: He Cat on 01-05-2025 Serum or plasma vancomycin measurement (mass/volume) 15.1 ug/mL High 0.0-15.0 [facility] Vancomycin, Random Levelon 0 01-05-2025 VANCO, RANDOM 15.1 ug/mL High 0.0-15.0 [facility] Comment on above: Order Comment: Comme nts: BEFORE HEMODIALYSIS Result Comment: VANC OMYCIN STANDARD DRUG THERAPY: CRITICAL VALUE IS > 15.0 mg/LVANCOMYCIN HIGH INTENSITY THERAPY: CRITICAL VALUE IS > 20.0 mg/LPLEASE CONTACT PHARMACY SERVICES (#1909) FOR INTERPRETATIONOF RESULTS. THIS RESULT DOES NOT REPRESENT A PEAK OR TROUGHLEVEL FOR THIS DRUG. Performed By: #### L 501.8850 ####[facility] [address] [place], [address] pH (Unsp spec)Ordered By: Sarbjit Cat on 01-05-2025 Measurement, pH 7.28 Low 7.35-7.45 [facility] Basic Metabolic Profile (BMP )on 01-04-2025 BUN/CRE 9.2 RATIO Low 10-20 [facility] Comment on above: Performed By: #### L 100.0100, L500.2500 ####[facility] [address] [place], [address] Calcium [Mass/Vol] 9.8 mg/dL Normal 7.6-11.0 [facility] Comment on above: Performed By: #### L 100.0100, L500.2500 ####[facility] [address] [place], [address] Chloride [Moles/Vol] 94 mmol/L Low 98-108 [facility] Comment on above: Performed By: #### L 100.0100, L500.2500 ####[facility] [address] [place], [address] CO2 [Moles/Vol] 26.9 mmol/L Normal 21.0-32.0 [facility] Comment on above: Performed By: #### L 100.0100, L500.2500 ####[facility] [address] [place], [address] Creatinine [Mass/Vol] 4.27 mg/dL High 0.70-1.20 [facility] Comment on above: Performed By: #### L 100.0100, L500.2500 ####[facility] [address] [place], [address] ECRCL 10.41 ml/min Low 50-250 [facility] Comment on above: Performed By: #### L 100.0100, L500.2500 ####[facility] [address] [place], [address] GAP 8 Normal 5-15 [facility] Comment on above: Performed By: #### L 100.0100, L500.2500 ####[facility] [address] [place], [address] GFR/1.73 sq M.predicted among non-blacks MDRD (S/P/Bld) [Vol rate/Area] 11 mL/min/{1.73_m2} Low >60 [facility] Comment on above: Result Comment: mL/m in/1.73m2 CKD-EPI Creatinine Equation (2020) Performed By: #### L 100.0100, L500.2500 ####[facility] [address] [place], [address] Glucose [Mass/Vol] 256 mg/dL High 70-99 [facility] Comment on above: Performed By: #### L 100.0100, L500.2500 ####[facility] [address] [place], [address] Potassium [Moles/Vol] 5.4 mmol/L High 3.3-5.1 [facility] Comment on above: Performed By: #### L 100.0100, L500.2500 ####[facility] [address] [place], [address] Sodium [Moles/Vol] 129 mmol/L Low 133-145 [facility] Comment on above: Performed By: #### L 100.0100, L500.2500 ####[facility] [address] [place], [address] Urea nitrogen [Mass/Vol] 39 mg/dL High 4-19 [facility] Comment on above: Performed By: #### L 100.0100, L500.2500 ####[facility] [address] [place], [address] Bedside Glucoseon 01-04-2025 FINGERSTICK GLU 308 mg/dL High 74-106 [place] [facility] Comment on above: Result Comment: SHELLY GEMENT OF PATIENT CARE PER NURSING PROTOCOL Performed By: #### L 501.080 ####[facility] [address] [place], [address] FINGERSTICK GLU 133 mg/dL High [address] [place] [address] Comment on above: Result Comment: SHELLY GEMENT OF PATIENT CARE PER NURSING PROTOCOL Performed By: #### L 501.080 ####[facility] [address] [place], [address] FINGERSTICK GLU 282 mg/dL High [address] [place] [address] Comment on above: Result Comment: SHELLY GEMENT OF PATIENT CARE PER NURSING PROTOCOL Performed By: #### L 501.080 ####[facility] [address] [place], [address] FINGERSTICK GLU 37 mg/dL Invalid Interpretation Code [address] [place] [address] Comment on above: Result Comment: [facility] k GivenMANAGEMENT OF PATIENT CARE PER NURSING PROTOCOL Performed By: #### L 501.080 ####[facility] [address] [place], [address] FINGERSTICK GLU 33 mg/dL Invalid Interpretation Code [address] [place] [address] Comment on above: Result Comment: [facility] k GivenMANAGEMENT OF PATIENT CARE PER NURSING PROTOCOL Performed By: #### L 501.080 ####[facility] [address] [place], [address] FINGERSTICK GLU 303 mg/dL High [address] [place] [address] Comment on above: Result Comment: SHELLY GEMENT OF PATIENT CARE PER NURSING PROTOCOL Performed By: #### L 501.080 ####[facility] [address] [place], [address] FINGERSTICK GLU 188 mg/dL High [address] [place] [address] Comment on above: Result Comment: SHELLY GEMENT OF PATIENT CARE PER NURSING PROTOCOL Performed By: #### L 501.080 ####[facility] [address] [place], [address] FINGERSTICK GLU 132 mg/dL High 74-106 [facility] Comment on above: Result Comment: SHELLY GEMENT OF PATIENT CARE PER NURSING PROTOCOL Performed By: #### L 501.080 ####[facility] [address] [place], [address] FINGERSTICK GLU 153 mg/dL High 74-106 [facility] Comment on above: Result Comment: SHELLY GEMENT OF PATIENT CARE PER NURSING PROTOCOL Performed By: #### L 501.080 ####[facility] [address] [place], [address] FINGERSTICK GLU 173 mg/dL High 74-106 [facility] Comment on above: Result Comment: SHELLY GEMENT OF PATIENT CARE PER NURSING PROTOCOL Performed By: #### L 501.080 ####[facility] [address] [place], [address] FINGERSTICK GLU 251 mg/dL High 74-106 [facility] Comment on above: Result Comment: SHELLY GEMENT OF PATIENT CARE PER NURSING PROTOCOL Performed By: #### L 501.080 ####[facility] [address] [place], [address] FINGERSTICK GLU 244 mg/dL High -106 [facility] Comment on above: Result Comment: SHELLY GEMENT OF PATIENT CARE PER NURSING PROTOCOL Performed By: #### L 501.080 ####[facility] [address] [place], [address] FINGERSTICK GLU 170 mg/dL High -106 [facility] Comment on above: Result Comment: SHELLY GEMENT OF PATIENT CARE PER NURSING PROTOCOL Performed By: #### L 501.080 ####[facility] [address] [place], [address] Blood Gases by [facility] 03-04-2 025 TINY TEST Positive Normal [facility] Comment on above: Performed By: #### L 9000.0800 ####[facility] [address] [place], [address] Base excess Calc (Bld) [Moles/Vol] 7 mmol/L High -2 to +2 [facility] Comment on above: Performed By: #### L 9000.0800 ####[facility] [address] [place], [address] Blood Gas Type ART Normal [facility] Comment on above: Performed By: #### L 9000.0800 ####[facility] [address] [place], [address] CO2 [Moles/Vol] 36 mmol/L Normal [facility] Comment on above: Performed By: #### L 9000.0800 ####[facility] [address] [place], [address] Comment Normal [facility] Comment on above: Result Comment: Bipa p settings of 15/8 rate of 12, fio2 30% Performed By: #### L 9000.0800 ####[facility] [address] [place], [address] FI02 30.0 Normal [facility] Comment on above: Performed By: #### L 9000.0800 ####[facility] [address] [place], [address] HCO3 (Bld) [Moles/Vol] 33.3 mmol/L High 22-26 [facility] Comment on above: Performed By: #### L 9000.0800 ####[facility] [address] [place], [address] Mode Not entered Normal [facility] Comment on above: Performed By: #### L 9000.0800 ####[facility] [address] [place], [address] O2 Delivery Dev BiPAP Normal [facility] Comment on above: Performed By: #### L 9000.0800 ####[facility] [address] [place], [address] pCO2 71.6 mmHg Invalid Interpretation Code 35-45 [facility] Comment on above: Performed By: #### L 9000.0800 ####[facility] [address] [place], [address] pH (Bld) 7.28 [pH] Low 7.35-7.45 [facility] Comment on above: Performed By: #### L 9000.0800 ####[facility] [address] [place], [address] PO2 69 mmHG Low 75-100 [facility] Comment on above: Performed By: #### L 9000.0800 ####[facility] [address] [place], [address] Read Back By Yes Normal [facility] Comment on above: Performed By: #### L 9000.0800 ####[facility] [address] [place], [address] SITE % Normal [facility] Comment on above: Performed By: #### L 9000.0800 ####[facility] [address] [place], [address] SO2 90 Low 95-99 [facility] Comment on above: Performed By: #### L 9000.0800 ####[facility] [address] [place], [address] TINY TEST Positive Normal [facility] Comment on above: Performed By: #### L 9000.0800 ####[facility] [address] [place], [address] Base excess Calc (Bld) [Moles/Vol] 4 mmol/L High -2 to +2 [facility] Comment on above: Performed By: #### L 9000.0800 ####[facility] [address] [place], [address] Blood Gas Type ART Normal [facility] Comment on above: Performed By: #### L 9000.0800 ####[facility] [address] [place], [address] CO2 [Moles/Vol] 34 mmol/L Normal [facility] Comment on above: Performed By: #### L 9000.0800 ####[facility] [address] [place], [address] FI02 3.0 Normal [facility] Comment on above: Performed By: #### L 9000.0800 ####[facility] [address] [place], [address] HCO3 (Bld) [Moles/Vol] 31.3 mmol/L High 22-26 [facility] Comment on above: Performed By: #### L 9000.0800 ####[facility] [address] [place], [address] Mode Not entered Normal [facility] Comment on above: Performed By: #### L 9000.0800 ####[facility] [address] [place], [address] O2 Delivery Dev Cannula Normal [facility] Comment on above: Performed By: #### L 9000.0800 ####[facility] [address] [place], [address] pCO2 72.6 mmHg Invalid Interpretation Code 35-45 [facility] Comment on above: Performed By: #### L 9000.0800 ####[facility] [address] [place], [address] pH (Bld) 7.24 [pH] Low 7.35-7.45 [facility] Comment on above: Performed By: #### L 9000.0800 ####[facility] [address] [place], [address] PO2 86 mmHG Normal 75-100 [facility] Comment on above: Performed By: #### L 9000.0800 ####[facility] [address] [place], [address] Read Back By Yes Normal [facility] Comment on above: Performed By: #### L 9000.0800 ####[facility] [address] [place], [address] Results To [facility] Comment on above: Performed By: #### L 9000.0800 ####[facility] [address] [place], [address] SITE L Radial Normal [facility] Comment on above: Performed By: #### L 9000.0800 ####[facility] [address] [place], [address] SO2 94 Low 95-99 [facility] Comment on above: Performed By: #### L 9000.0800 ####[facility] [address] [place], [address] Time Given 10:46:25 Normal [facility] Comment on above: Performed By: #### L 9000.0800 ####[facility] [address] [place], [address] CBC W/Diff, Automatedon 03-0 Absolute Lymph 2.60 X10 3/uL Normal 0.83-4.51 [facility] Comment on above: Performed By: #### L 100.0100, L500.2500 ####[facility] [address] [place], [address] Absolute Neut 7.4 X10 3/uL Normal 2.0-7.7 [facility] Comment on above: Performed By: #### L 100.0100, L500.2500 ####[facility] [address] [place], [address] Basophils/100 WBC (Bld) 0.6 % Normal 0-1 [facility] Comment on above: Performed By: #### L 100.0100, L500.2500 ####[facility] [address] [place], [address] Eosinophils/100 WBC (Bld) 6.4 % High 0-5 [facility] Comment on above: Performed By: #### L 100.0100, L500.2500 ####[facility] [address] [place], [address] Erythrocyte distribution width (RBC) [Ratio] 12.5 % Normal 11.6-14.6 [facility] Comment on above: Performed By: #### L 100.0100, L500.2500 ####[facility] [address] [place], [address] Hematocrit (Bld) [Volume fraction] 29.7 % Low 37-47 [facility] Comment on above: Performed By: #### L 100.0100, L500.2500 ####[facility] [address] [place], [address] Hemoglobin (Bld) [Mass/Vol] 9.2 g/dL Low 12.0-15.0 [facility] Comment on above: Performed By: #### L 100.0100, L500.2500 ####[facility] [address] [place], [address] IG% 0.400 Normal 0.0-0.9 [facility] Comment on above: Result Comment: IG% - Immature Granulocytes (promyelocytes, myelocytes andmetamyelocytes) > 1% indicates that a LEFT SHIFT is Present. Performed By: #### L 100.0100, L500.2500 ####[facility] [address] [place], [address] Lymphocytes/100 WBC (Bld) 21.5 % Normal 19-41 [facility] Comment on above: Performed By: #### L 100.0100, L500.2500 ####[facility] [address] [place], [address] MCH (RBC) [Entitic mass] 30.3 pg Normal 27.0-32.0 [facility] Comment on above: Performed By: #### L 100.0100, L500.2500 ####[facility] [address] [place], [address] MCHC (RBC) [Mass/Vol] 31.0 g/dL Low 32-36 [facility] Comment on above: Performed By: #### L 100.0100, L500.2500 ####[facility] [address] [place], [address] MCV (RBC) [Entitic vol] 97.7 fL Normal 81-99 [facility] Comment on above: Performed By: #### L 100.0100, L500.2500 ####[facility] [address] [place], [address] Monocytes/100 WBC (Bld) 10.2 % High 0-10 [facility] Comment on above: Performed By: #### L 100.0100, L500.2500 ####[facility] [address] [place], [address] Neutrophils/100 WBC (Bld) 60.9 % Normal 47-70 [facility] Comment on above: Performed By: #### L 100.0100, L500.2500 ####[facility] [address] [place], [address] Nucleated RBC (Bld) [#/Vol] 0 10*3/uL Normal 0-5 [facility] Comment on above: Performed By: #### L 100.0100, L500.2500 ####[facility] [address] [place], [address] Platelet mean volume (Bld) [Entitic vol] 9.5 fL Normal 6.2-12.0 [facility] Comment on above: Performed By: #### L 100.0100, L500.2500 ####[facility] [address] [place], [address] Platelets (Bld) [#/Vol] 227 10*3/uL Normal 150-450 [facility] Comment on above: Performed By: #### L 100.0100, L500.2500 ####[facility] [address] [place], [address] RBC (Bld) [#/Vol] 3.04 10*6/uL Low 4.2-5.4 [facility] Comment on above: Performed By: #### L 100.0100, L500.2500 ####[facility] [address] [place], [address] RDW SD 44.8 fl High 35.1-43.9 [facility] Comment on above: Performed By: #### L 100.0100, L500.2500 ####[facility] [address] [place], [address] WBC (Bld) [#/Vol] 12.1 10*3/uL High 4.4-11.0 [facility] Comment on above: Performed By: #### L 100.0100, L500.2500 ####[facility] [address] [place], [address] Consultation - Nephrologyon 01-04-2025 Consultation - Nephrology Normal [facility] Influenza virus A and B and SARS-CoV-2 (COVID-19) and Respiratory syncytial virus RNAOrdered By: He Cat on 01-04-2025 SARS-CoV-2 (COVID-19) RNA MARISA+probe Ql (Unsp spec) [facility] M100.678on 01-04-2025 M100.678 Pending SARS-CoV-2 (COVID 19) Negative INFLUENZA A Negative INFLUENZA B Negative RSV PCR Negative Normal [facility] Comment on above: Performed By: #### M 100.678 ####[facility] [address] [place], [address] M8200.1000on 01-04-2025 M8200.1000 Normal Reference Ran ge = Negative GeneXpert Instrument, PCR method MRSA PCR MRSA NEGATIVE Normal [facility] Comment on above: Performed By: #### M 8200.1000 ####[facility] [address] [place], [address] Nasal methicillin resistant Staphylococcus aureus (MRSA) DNA detection by PCROrdered By: He Cat on 01-04-2025 MRSA DNA MARISA+probe Ql (Nose) [facility] No Panel InformationOrdered By: He Cat on 01-04-2025 Yes [facility] 10:46:25 [facility] 12 Lead EKGon 01-03-2025 12 Lead EKG Normal [facility] Basic Metabolic Profile (BMP )on 01-03-2025 BUN/CRE 9.0 RATIO Low 10-20 [facility] Comment on above: Performed By: #### L 500.2500, L100.0100 ####[facility] [address] [place], [address] Calcium [Mass/Vol] 9.2 mg/dL Normal 7.6-11.0 [facility] Comment on above: Performed By: #### L 500.2500, L100.0100 ####[facility] [address] [place], [address] Chloride [Moles/Vol] 95 mmol/L Low 98-108 [facility] Comment on above: Performed By: #### L 500.2500, L100.0100 ####[facility] [address] [place], [address] CO2 [Moles/Vol] 32.3 mmol/L High 21.0-32.0 [facility] Comment on above: Performed By: #### L 500.2500, L100.0100 ####[facility] [address] [place], [address] Creatinine [Mass/Vol] 4.48 mg/dL High 0.70-1.20 [facility] Comment on above: Performed By: #### L 500.2500, L100.0100 ####[facility] [address] [place], [address] ECRCL 11.50 ml/min Low 50-250 [facility] Comment on above: Performed By: #### L 500.2500, L100.0100 ####[facility] [address] [place], [address] GAP 5 Normal 5-15 [facility] Comment on above: Performed By: #### L 500.2500, L100.0100 ####[facility] [address] [place], [address] GFR/1.73 sq M.predicted among non-blacks MDRD (S/P/Bld) [Vol rate/Area] 10 mL/min/{1.73_m2} Low >60 [facility] Comment on above: Result Comment: mL/m in/1.73m2 CKD-EPI Creatinine Equation (2020) Performed By: #### L 500.2500, L100.0100 ####[facility] [address] [place], [address] Glucose [Mass/Vol] 158 mg/dL High 70-99 [facility] Comment on above: Performed By: #### L 500.2500, L100.0100 ####[facility] [address] [place], [address] Potassium [Moles/Vol] 5.8 mmol/L High 3.3-5.1 [facility] Comment on above: Result Comment: Hemo lysis present, Results??could be affected.?? Performed By: #### L 500.2500, L100.0100 ####[facility] [address] [place], [address] Sodium [Moles/Vol] 133 mmol/L Normal 133-145 [facility] Comment on above: Performed By: #### L 500.2500, L100.0100 ####[facility] [address] [place], [address] Urea nitrogen [Mass/Vol] 40 mg/dL High 4-19 [facility] Comment on above: Performed By: #### L 500.2500, L100.0100 ####[facility] [address] [place], [address] CBC W/Diff, Automatedon 03-0 3-2025 Absolute Lymph 1.39 X10 3/uL Normal 0.83-4.51 [facility] Comment on above: Performed By: #### L 500.2500, L100.0100 ####[facility] [address] [place], [address] Absolute Neut 6.3 X10 3/uL Normal 2.0-7.7 [facility] Comment on above: Performed By: #### L 500.2500, L100.0100 ####[facility] [address] [place], [address] Basophils/100 WBC (Bld) 0.6 % Normal 0-1 [facility] Comment on above: Performed By: #### L 500.2500, L100.0100 ####[facility] [address] [place], [address] Eosinophils/100 WBC (Bld) 7.0 % High 0-5 [facility] Comment on above: Performed By: #### L 500.2500, L100.0100 ####[facility] [address] [place], [address] Erythrocyte distribution width (RBC) [Ratio] 12.4 % Normal 11.6-14.6 [facility] Comment on above: Performed By: #### L 500.2500, L100.0100 ####[facility] [address] [place], [address] Hematocrit (Bld) [Volume fraction] 31.8 % Low 37-47 [facility] Comment on above: Performed By: #### L 500.2500, L100.0100 ####[facility] [address] [place], [address] Hemoglobin (Bld) [Mass/Vol] 10.1 g/dL Low 12.0-15.0 [facility] Comment on above: Performed By: #### L 500.2500, L100.0100 ####[facility] [address] [place], [address] IG% 0.400 Normal 0.0-0.9 [facility] Comment on above: Result Comment: IG% - Immature Granulocytes (promyelocytes, myelocytes andmetamyelocytes) > 1% indicates that a LEFT SHIFT is Present. Performed By: #### L 500.2500, L100.0100 ####[facility] [address] [place], [address] Lymphocytes/100 WBC (Bld) 15.0 % Low 19-41 [facility] Comment on above: Performed By: #### L 500.2500, L100.0100 ####[facility] [address] [place], [address] MCH (RBC) [Entitic mass] 30.4 pg Normal 27.0-32.0 [facility] Comment on above: Performed By: #### L 500.2500, L100.0100 ####[facility] [address] [place], [address] MCHC (RBC) [Mass/Vol] 31.8 g/dL Low 32-36 [facility] Comment on above: Performed By: #### L 500.2500, L100.0100 ####[facility] [address] [place], [address] MCV (RBC) [Entitic vol] 95.8 fL Normal 81-99 [facility] Comment on above: Performed By: #### L 500.2500, L100.0100 ####[facility] [address] [place], [address] Monocytes/100 WBC (Bld) 8.8 % Normal 0-10 [facility] Comment on above: Performed By: #### L 500.2500, L100.0100 ####[facility] [address] [place], [address] Neutrophils/100 WBC (Bld) 68.2 % Normal 47-70 [facility] Comment on above: Performed By: #### L 500.2500, L100.0100 ####[facility] [address] [place], [address] Nucleated RBC (Bld) [#/Vol] 0 10*3/uL Normal 0-5 [facility] Comment on above: Performed By: #### L 500.2500, L100.0100 ####[facility] [address] [place], [address] Platelet mean volume (Bld) [Entitic vol] 9.5 fL Normal 6.2-12.0 [facility] Comment on above: Performed By: #### L 500.2500, L100.0100 ####[facility] [address] [place], [address] Platelets (Bld) [#/Vol] 228 10*3/uL Normal 150-450 [facility] Comment on above: Performed By: #### L 500.2500, L100.0100 ####[facility] [address] [place], [address] RBC (Bld) [#/Vol] 3.32 10*6/uL Low 4.2-5.4 [facility] Comment on above: Performed By: #### L 500.2500, L100.0100 ####[facility] [address] [place], [address] RDW SD 43.1 fl Normal 35.1-43.9 [facility] Comment on above: Performed By: #### L 500.2500, L100.0100 ####[facility] [address] [place], [address] WBC (Bld) [#/Vol] 9.3 10*3/uL Normal 4.4-11.0 [facility] Comment on above: Performed By: #### L 500.2500, L100.0100 ####[facility] [address] [place], [address] Chest PA and Lateralon 01-03 Chest PA and Lateral Normal [facility] Emergency Department Summary on 01-03-2025 Emergency Department Summary Normal [facility] 12-30-2024 [facility] Telephone (TXCTGL) SANDY DENG ([id number]) 1960 F Date Time Provider Department 12/30/24 [facility] During your visit today, we recorded the following information about you: [place] James 12/30/2024 11:06 AM Signed Called and spoke with the patient in regards to kidney transplant referral, she states she started the process with [facility], and would like to go through [...] Reason for Visit: Referral - Kidney Txp [[id number]] Prescriptions as of 12/30/2024 - promethazine (PHENERGAN) [...] Status:Closed by MONTANA JAMES on 12/30/24 Normal [facility] 12-29-2024 CNPN Telephone (TXCTGL) SANDY DENG ([id number]) 1960 F Date Time Provider Department 12/29/24 KIDNEY TXP COORDINATORS [facility] During your visit today, we recorded the following information about you: Otilia Portillo Tech 12/29/2024 10:51 AM Signed I spoke with Lita at [facility] who confirmed the patients demographic information and confirmed that the phone number that we have on file for the patient is incorrect. The correct phone number is [phone]. Allergies As of Date: 12/29/2024 Noted Allergy Reaction environmental [Other] 03/23/2009 Date Reviewed: 04/02/2012 Reviewed by: Dominga Garza (Rn), RN - Fully Assessed Reason for Visit: Referral - Kidney Txp [[id number]] Prescriptions as of 12/29/2024 - promethazine (PHENERGAN) [...] 12-28-2024 FINGERSTICK GLU 207 mg/dL High 74-106 [facility] Comment on above: Result Comment: SHELLY GEMENT OF PATIENT CARE PER NURSING PROTOCOL Performed By: #### L 501.080 ####[facility] [address] [place], [address] FINGERSTICK GLU 166 mg/dL High [facility]106 [facility] Comment on above: Result Comment: SHELLY GEMENT OF PATIENT CARE PER NURSING PROTOCOL Performed By: #### L 501.080 ####[facility] [address] [place], [address] FINGERSTICK GLU 135 mg/dL [address] [facility] Comment on above: Result Comment: SHELLY GEMENT OF PATIENT CARE PER NURSING PROTOCOL Performed By: #### L 501.080 ####[facility] [address] [place], [address] Discharge Instructionon 12-05 Discharge Instruction Normal [facility] Glucose measurement at bedsi deOrdered By: Favian Sinclair on 12-28-2024 Glucose [Mass/Vol] 207 mg/dL High 74-106 [facility] Glucose measurement at bedside 207 mg/dL High 74-106 [facility] MR/POSTOP.ANEon 12-28-2024 MR/POSTOP.ANE Normal [facility] MR/DGGFDYFU0rk 12-28-2024 MR/POSTOPAN2 Normal [facility] Operative Reporton Operative Report Normal [facility] Basic Metabolic Profile (BMP )on 12-25-2024 BUN/CRE 6.9 RATIO Low 10-20 [facility] Comment on above: Performed By: #### L 500.2500, L100.0500 ####[facility] [address] [place], [address] CA,Total 9.0 mg/dL Normal 8.5-10.1 [facility] Comment on above: Performed By: #### L 500.2500, L100.0500 ####[facility] [address] [place], [address] Chloride [Moles/Vol] 96 mmol/L Low 98-107 [facility] Comment on above: Performed By: #### L 500.2500, L100.0500 ####[facility] [address] [place], [address] CO2 [Moles/Vol] 35.0 mmol/L High 21.0-32.0 [facility] Comment on above: Performed By: #### L 500.2500, L100.0500 ####[facility] [address] [place], [address] Creatinine [Mass/Vol] 3.19 mg/dL High 0.55-1.02 [facility] Comment on above: Result Comment: The validity of the calculated GFR GFRAA in patients over70 years has not been determined. Clinical correlation isessential. Performed By: #### L 500.2500, L100.0500 ####[facility] [address] [place], [address] EST GFR - AA 19 mL/min Low >60 [facility] Comment on above: Result Comment: Afri can [place] GFR Calc Performed By: #### L 500.2500, L100.0500 ####[facility] [address] [place], [address] GAP 3 Low 5-15 [facility] Comment on above: Performed By: #### L 500.2500, L100.0500 ####[facility] [address] [place], [address] GFR/1.73 sq M.predicted among non-blacks MDRD (S/P/Bld) [Vol rate/Area] 16 mL/min/{1.73_m2} Low >60 [facility] Comment on above: Result Comment: Non- GFR Calc Performed By: #### L 500.2500, L100.0500 ####[facility] [address] [place], [address] Glucose [Mass/Vol] 212 mg/dL High 74-106 [facility] Comment on above: Result Comment: Gluc ose result greater than or equal to 200 mg/dLsuggests DIABETES MELLITUS per A.D.A. criteria. Performed By: #### L 500.2500, L100.0500 ####[facility] [address] [place], [address] Potassium [Moles/Vol] 4.0 mmol/L Normal 3.5-5.1 [facility] Comment on above: Performed By: #### L 500.2500, L100.0500 ####[facility] [address] [place], [address] Sodium [Moles/Vol] 134 mmol/L Low 136-145 [facility] Comment on above: Performed By: #### L 500.2500, L100.0500 ####[facility] [address] [place], [address] Urea nitrogen [Mass/Vol] 22 mg/dL High 7-18 [facility] Comment on above: Performed By: #### L 500.2500, L100.0500 ####[facility] [address] [place], [address] Blood urea nitrogen (BUN)/cr eatinine ratioOrdered By: Favian Sinclair on 12-25-2024 Blood urea nitrogen (BUN)/creatinine ratio 6.9 RATIO Low 10-20 [facility] CBC-Complete Blood Cnt No Di ffon 12-25-2024 Erythrocyte distribution width (RBC) [Ratio] 12.4 % Normal 11.6-14.6 [facility] Comment on above: Performed By: #### L 500.2500, L100.0500 ####[facility] [address] [place], [address] Hematocrit (Bld) [Volume fraction] 33.1 % Low 37-47 [facility] Comment on above: Performed By: #### L 500.2500, L100.0500 ####[facility] [address] [place], [address] Hemoglobin (Bld) [Mass/Vol] 10.6 g/dL Low 12.0-15.0 [facility] Comment on above: Performed By: #### L 500.2500, L100.0500 ####[facility] [address] [place], [address] MCH (RBC) [Entitic mass] 30.1 pg Normal 27.0-32.0 [facility] Comment on above: Performed By: #### L 500.2500, L100.0500 ####[facility] [address] [place], [address] MCHC (RBC) [Mass/Vol] 32.0 g/dL Normal 32-36 [facility] Comment on above: Performed By: #### L 500.2500, L100.0500 ####[facility] [address] [place], [address] MCV (RBC) [Entitic vol] 94.0 fL Normal 81-99 [facility] Comment on above: Performed By: #### L 500.2500, L100.0500 ####[facility] [address] [place], [address] Platelet mean volume (Bld) [Entitic vol] 9.4 fL Normal 6.2-12.0 [facility] Comment on above: Performed By: #### L 500.2500, L100.0500 ####[facility] [address] [place], [address] Platelets (Bld) [#/Vol] 220 10*3/uL Normal 150-450 [facility] Comment on above: Performed By: #### L 500.2500, L100.0500 ####[facility] [address] [place], [address] RBC (Bld) [#/Vol] 3.52 10*6/uL Low 4.2-5.4 [facility] Comment on above: Performed By: #### L 500.2500, L100.0500 ####[facility] [address] [place], [address] RDW SD 42.8 fl Normal 35.1-43.9 [facility] Comment on above: Performed By: #### L 500.2500, L100.0500 ####[facility] [address] [place], [address] WBC (Bld) [#/Vol] 7.7 10*3/uL Normal 4.4-11.0 [facility] Comment on above: Performed By: #### L 500.2500, L100.0500 ####[facility] [address] [place], [address] Calcium [Mass/Vol]Ordered By : Favian Sinclair on 12-25-2024 Serum or plasma calcium measurement (mass/volume) 9.0 mg/dL 8.5-10.1 [facility] Carbon dioxide measurementOr dered By: Favian Sinclair on 12-25-2024 CO2 [Moles/Vol] 35.0 mmol/L High 21.0-32.0 [facility] Carbon dioxide measurement 35.0 mmol/L High 21.0-32.0 [facility] Chloride measurementOrdered By: Favian Sinclair on 12-25-2024 Chloride [Moles/Vol] 96 mmol/L Low 98-107 [facility] Chloride measurement 96 mmol/L Low 98-107 [facility] Creatinine [Mass/Vol]Ordered By: Favian Sinclair on 12-25-2024 Serum or plasma creatinine measurement (mass/volume) 3.19 mg/dL High 0.55-1.02 [facility] Erythrocyte distribution wid th (RBC) [Entitic vol]Ordered By: Favian Sinclair on 12-25-2024 Erythrocyte distribution width standard deviation 42.8 fl 35.1-43.9 [facility] Erythrocyte distribution wid th (RBC) [Ratio]Ordered By: Favian Sinclair on 12-25-2024 Erythrocyte distribution width ratio 12.4 % 11.6-14.6 [facility] Erythrocyte distribution wid th ratioOrdered By: Favian Sinclair on 12-25-2024 Erythrocyte distribution width (RBC) [Ratio] 12.4 % 11.6-14.6 [facility] Erythrocyte distribution wid th standard deviationOrdered By: Favina Sinclair 12-25-2024 Erythrocyte distribution width (RBC) [Ratio] 42.8 fl 35.1-43.9 [facility] Estimated glomerular filtrat ion rate (GFR) AmericanOrdered By: Favian Sinclair on 12-25-2024 Estimated glomerular filtration rate (GFR) 19 mL/min Low >60 [facility] Glomerular filtration rate ( GFR) estimationOrdered By: Favian Sinclair on 12-25-2024 GFR/1.73 sq M.predicted among non-blacks MDRD (S/P/Bld) [Vol rate/Area] 16 mL/min/{1.73_m2} Low >60 [facility] Glomerular filtration rate (GFR) estimation 16 mL/min Low >60 [facility] Glucose measurementOrdered B y: Favian Sinclair on 12-25-2024 Glucose [Mass/Vol] 212 mg/dL High 74-106 [facility] Glucose measurement 212 mg/dL High 74-106 [facility] Hematocrit Auto (Bld) [Volum e fraction]Ordered By: Favian Sinclair on 12-25-2024 Hematocrit (Bld) [Volume fraction] 33.1 % Low 37-47 [facility] Automated blood hematocrit (percentage) 33.1 % Low 37-47 [facility] Hemoglobin measurementOrdere d By: Favian Sinclair on 12-25-2024 Hemoglobin (Bld) [Mass/Vol] 10.6 g/dL Low 12.0-15.0 [facility] Hemoglobin measurement 10.6 g/dL Low 12.0-15.0 [facility] MCV (RBC) [Entitic vol]Order ed By: Favian Sinclair on 12-25-2024 MCV (mean corpuscular volume) determination 94.0 fL 81-99 [facility] MCV (mean corpuscular volume ) determinationOrdered By: Favian Sinclair on 12-25-2024 MCV (RBC) [Entitic vol] 94.0 fL 81-99 [facility] Mean corpuscular hemoglobin (MCH) determinationOrdered By: Favian Sinclair on 12-25-2024 MCH (RBC) [Entitic mass] 30.1 pg 27.0-32.0 [facility] Mean corpuscular hemoglobin (MCH) determination 30.1 pg 27.0-32.0 [facility] Mean corpuscular hemoglobin concentration (MCHC) determinationOrdered By: Favian Sinclair on 12-25-2024 Mean corpuscular hemoglobin concentration (MCHC) determination 32.0 g/dL 32-36 [facility] Mean platelet volume determi nationOrdered By: Favian Sinclair on 12-25-2024 Mean platelet volume determination 9.4 fl 6.2-12.0 [facility] Platelet countOrdered By: Shreyas Sinclair on 12-25-2024 Platelets (Bld) [#/Vol] 220 10*3/uL 150-450 [facility] Platelet count 220 K/mm3 150-450 [facility] Potassium measurementOrdered By: Favian Sinclair on 12-25-2024 Potassium [Moles/Vol] 4.0 mmol/L 3.5-5.1 [facility] Potassium measurement 4.0 mmol/L 3.5-5.1 [facility] RBC Auto (Bld) [#/Vol]Ordere d By: Favian Sinclair on 12-25-2024 RBC (Bld) [#/Vol] 3.52 10*6/uL Low 4.2-5.4 [facility] Automated blood erythrocyte count 3.52 M/mm3 Low 4.2-5.4 [facility] Serum anion gap measurementO rdered By: Favian Sinclair on 12-25-2024 Serum anion gap measurement 3 Low 5-15 [facility] Serum or plasma calcium lesly urement (mass/volume)Ordered By: Favian Sinclair on 12-25-2024 Calcium [Mass/Vol] 9.0 mg/dL 8.5-10.1 [facility] Serum or plasma creatinine m easurement (mass/volume)Ordered By: Favian Sinclair on 12-25-2024 Creatinine [Mass/Vol] 3.19 mg/dL High 0.55-1.02 [facility] Serum or plasma urea nitroge n measurement (mass/volume)Ordered By: Favian Sinclair on 12-25-2024 Urea nitrogen [Mass/Vol] 22 mg/dL High 7-18 [facility] Sodium levelOrdered By: Favian Sinclair on 12-25-2024 Sodium [Moles/Vol] 134 mmol/L Low 136-145 [facility] Sodium level 134 mmol/L Low 136-145 [facility] Urea nitrogen [Mass/Vol]Orde red By: Favian Sinclair on 12-25-2024 Serum or plasma urea nitrogen measurement (mass/volume) 22 mg/dL High 7-18 [facility] White blood cell (WBC) count Ordered By: Favian Sinclair on 12-25-2024 WBC (Bld) [#/Vol] 7.7 10*3/uL 4.4-11.0 [facility] White blood cell (WBC) count 7.7 K/mm3 4.4-11.0 [facility] CNPNon 12-24-2024 CAROL Telephone (TXCTGL) SANDY DENG ([id number]) 1960 F Date Time Provider Department 12/24/24 [...] Reason for Visit: Referral - Kidney Txp [[id number]] Prescriptions as of 12/24/2024 - promethazine (PHENERGAN) [...] 12/24/24 Normal [facility] MR/PAT.ANEon 12-20-2024 MR/PAT.ANE Normal [facility] Echo Completeon 12-17-2024 Echo Complete Normal [facility] Cardiology Visit Reporton Cardiology Visit Report Normal [facility] MR/PAT.ANEon 12-15-2024 MR/PAT.ANE Normal [facility] MR/PAT.ANEon 12-14-2024 MR/PAT.ANE Normal [facility] MR/BMS.BVSon 12-02-2024 MR/BMS.BVS Normal [facility] 12 Lead EKGon 11-20-2024 12 Lead EKG Normal [facility] 12 Lead EKG Normal [facility] ALP [Catalytic activity/Vol] Ordered By: Alex Kaur on 11-20-2024 Serum or plasma alkaline phosphatase measurement 71 U/L 45-117 [facility] ALT [Catalytic activity/Vol] Ordered By: Alex Kaur on 11-20-2024 Serum or plasma alanine aminotransferase (ALT) measurement 17 U/L 13-56 [facility] Absolute neutrophil countOrd ered By: Alex Kaur on 11-20-2024 Absolute neutrophil count 4.4 X10^3/uL 2.0-7.7 [facility] Albumin [Mass/Vol]Ordered By : Alex Kaur on 11-20-2024 Serum or plasma albumin measurement (mass/volume) 2.9 g/dL Low 3.2-5.0 [facility] Albumin to globulin ratioOrd ered By: Alex Kaur on 11-20-2024 Albumin to globulin ratio 0.9 RATIO 0.9-2.4 [facility] Basophil percentageOrdered B y: Alex Kaur on 11-20-2024 Basophil percentage 0.6 % 0-1 [facility] Bilirubin, totalOrdered By: Alex Kaur on 11-20-2024 Bilirubin, total 0.30 mg/dL 0.20-1.00 [facility] Blood urea nitrogen (BUN)/cr eatinine ratioOrdered By: Alex Kaur on 11-20-2024 Blood urea nitrogen (BUN)/creatinine ratio 8.1 RATIO Low 10-20 [facility] CBC W/Diff, Automatedon 11-03 Absolute Lymph 1.88 X10 3/uL Normal 0.83-4.51 [facility] Comment on above: Performed By: #### L 500.4050, L100.0100 ####[facility] [address] [place], [address] Absolute Neut 4.4 X10 3/uL Normal 2.0-7.7 [facility] Comment on above: Performed By: #### L 500.4050, L100.0100 ####[facility] [address] [place], [address] Basophils/100 WBC (Bld) 0.6 % Normal 0-1 [facility] Comment on above: Performed By: #### L 500.4050, L100.0100 ####[facility] [address] [place], [address] Eosinophils/100 WBC (Bld) 7.6 % High 0-5 [facility] Comment on above: Performed By: #### L 500.4050, L100.0100 ####[facility] [address] [place], [address] Erythrocyte distribution width (RBC) [Ratio] 12.6 % Normal 11.6-14.6 [facility] Comment on above: Performed By: #### L 500.4050, L100.0100 ####[facility] [address] [place], [address] Hematocrit (Bld) [Volume fraction] 35.8 % Low 37-47 [facility] Comment on above: Performed By: #### L 500.4050, L100.0100 ####[facility] [address] [place], [address] Hemoglobin (Bld) [Mass/Vol] 11.5 g/dL Low 12.0-15.0 [facility] Comment on above: Performed By: #### L 500.4050, L100.0100 ####[facility] [address] [place], [address] IG% 0.500 Normal 0.0-0.9 [facility] Comment on above: Result Comment: IG% - Immature Granulocytes (promyelocytes, myelocytes andmetamyelocytes) > 1% indicates that a LEFT SHIFT is Present. Performed By: #### L 500.4050, L100.0100 ####[facility] [address] [place], [address] Lymphocytes/100 WBC (Bld) 24.4 % Normal 19-41 [facility] Comment on above: Performed By: #### L 500.4050, L100.0100 ####[facility] [address] [place], [address] MCH (RBC) [Entitic mass] 30.4 pg Normal 27.0-32.0 [facility] Comment on above: Performed By: #### L 500.4050, L100.0100 ####[facility] [facility] [address] [place], [address] MCHC (RBC) [Mass/Vol] 32.1 g/dL Normal 32-36 [facility] Comment on above: Performed By: #### L 500.4050, L100.0100 ####[facility] [address] [place], [address] MCV (RBC) [Entitic vol] 94.7 fL Normal 81-99 [facility] Comment on above: Performed By: #### L 500.4050, L100.0100 ####[facility] [address] [place], [address] Monocytes/100 WBC (Bld) 9.7 % Normal 0-10 [facility] Comment on above: Performed By: #### L 500.4050, L100.0100 ####[facility] [address] [place], [address] Neutrophils/100 WBC (Bld) 57.2 % Normal 47-70 [facility] Comment on above: Performed By: #### L 500.4050, L100.0100 ####[facility] [address] [place], [address] Nucleated RBC (Bld) [#/Vol] 0 10*3/uL Normal 0-5 [facility] Comment on above: Performed By: #### L 500.4050, L100.0100 ####[facility] [address] [place], [address] Platelet mean volume (Bld) [Entitic vol] 9.1 fL Normal 6.2-12.0 [facility] Comment on above: Performed By: #### L 500.4050, L100.0100 ####[facility] [address] [place], [address] Platelets (Bld) [#/Vol] 193 10*3/uL Normal 150-450 [facility] Comment on above: Performed By: #### L 500.4050, L100.0100 ####[facility] [address] [place], [address] RBC (Bld) [#/Vol] 3.78 10*6/uL Low 4.2-5.4 [facility] Comment on above: Performed By: #### L 500.4050, L100.0100 ####[facility] [address] [place], [address] RDW SD 42.2 fl Normal 35.1-43.9 [facility] Comment on above: Performed By: #### L 500.4050, L100.0100 ####[facility] [address] [place], [address] WBC (Bld) [#/Vol] 7.7 10*3/uL Normal 4.4-11.0 [facility] Comment on above: Performed By: #### L 500.4050, L100.0100 ####[facility] [address] [place], [address] Calcium [Mass/Vol]Ordered By : Alex Kaur on 11-20-2024 Serum or plasma calcium measurement (mass/volume) 9.3 mg/dL 8.5-10.1 [facility] Carbon dioxide measurementOr dered By: Alex Kaur on 11-20-2024 Carbon dioxide measurement 33.0 mmol/L High 21.0-32.0 [facility] Chest 1 View (Portable)on Chest 1 View (Portable) Normal [facility] Chloride measurementOrdered By: Alex Kaur on 11-20-2024 Chloride measurement 102 mmol/L 98-107 [facility] Comprehensive Metabolic Prof ilon 11-20-2024 Albumin [Mass/Vol] 2.9 g/dL Low 3.2-5.0 [facility] Comment on above: Performed By: #### L 500.4050, L100.0100 ####[facility] [address] [place], [address] Albumin/Globulin [Mass ratio] 0.9 {ratio} Normal 0.9-2.4 [facility] Comment on above: Performed By: #### L 500.4050, L100.0100 ####[facility] [address] [place], [address] ALK P 71 U/L Normal 45-117 [facility] Comment on above: Performed By: #### L 500.4050, L100.0100 ####[facility] [address] [place], [address] ALT [Catalytic activity/Vol] 17 U/L Normal 13-56 [facility] Comment on above: Performed By: #### L 500.4050, L100.0100 ####[facility] [address] [place], [address] AST [Catalytic activity/Vol] 14 U/L Low 15-37 [facility] Comment on above: Performed By: #### L 500.4050, L100.0100 ####[facility] [address] [place], [address] Bilirubin [Mass/Vol] 0.30 mg/dL Normal 0.20-1.00 [facility] Comment on above: Result Comment: For patients on eltrombopag therapy, use of Dimension [place] TBIL is not recommended. Performed By: #### L 500.4050, L100.0100 ####[facility] [address] [place], [address] BUN/CRE 8.1 RATIO Low 10-20 [facility] Comment on above: Performed By: #### L 500.4050, L100.0100 ####[facility] [address] [place], [address] CA,Total 9.3 mg/dL Normal 8.5-10.1 [facility] Comment on above: Performed By: #### L 500.4050, L100.0100 ####[facility] [address] [place], [address] Chloride [Moles/Vol] 102 mmol/L Normal 98-107 [facility] Comment on above: Performed By: #### L 500.4050, L100.0100 ####[facility] [address] [place], [address] CO2 [Moles/Vol] 33.0 mmol/L High 21.0-32.0 [facility] Comment on above: Performed By: #### L 500.4050, L100.0100 ####[facility] [address] [place], [address] Creatinine [Mass/Vol] 2.85 mg/dL High 0.55-1.02 [facility] Comment on above: Result Comment: The validity of the calculated GFR GFRAA in patients over70 years has not been determined. Clinical correlation isessential. Performed By: #### L 500.4050, L100.0100 ####[facility] [address] [place], [address] ECRCL 15.85 ml/min Normal [facility] Comment on above: Performed By: #### L 500.4050, L100.0100 ####[facility] [address] [place], [address] EST GFR - AA 21 mL/min Low >60 [facility] Comment on above: Result Comment: Afri can [place] GFR Calc Performed By: #### L 500.4050, L100.0100 ####[facility] [address] [place], [address] GAP 2 Low 5-15 [facility] Comment on above: Performed By: #### L 500.4050, L100.0100 ####[facility] [address] [place], [address] GFR/1.73 sq M.predicted among non-blacks MDRD (S/P/Bld) [Vol rate/Area] 18 mL/min/{1.73_m2} Low >60 [facility] Comment on above: Result Comment: Non- GFR Calc Performed By: #### L 500.4050, L100.0100 ####[facility] [address] [place], [address] Globulin (S) [Mass/Vol] 3.4 g/dL Normal 2.2-4.2 [facility] Comment on above: Performed By: #### L 500.4050, L100.0100 ####[facility] [address] [place], [address] Glucose [Mass/Vol] 105 mg/dL Normal 74-106 [facility] Comment on above: Result Comment: Fast ing Glucose result from 100 to 125 mg/dLsuggests IMPAIRED HOMEOSTASIS per A.D.A. criteria. Performed By: #### L 500.4050, L100.0100 ####[facility] [address] [place], [address] Potassium [Moles/Vol] 4.4 mmol/L Normal 3.5-5.1 [facility] Comment on above: Performed By: #### L 500.4050, L100.0100 ####[facility] [address] [place], [address] Sodium [Moles/Vol] 137 mmol/L Normal 136-145 [facility] Comment on above: Performed By: #### L 500.4050, L100.0100 ####[facility] [address] [place], [address] T PROT 6.3 g/dL Low 6.4-8.2 [facility] Comment on above: Performed By: #### L 500.4050, L100.0100 ####[facility] [address] [place], [address] Urea nitrogen [Mass/Vol] 23 mg/dL High 7-18 [facility] Comment on above: Performed By: #### L 500.4050, L100.0100 ####[facility] [address] [place], [address] Creatinine [Mass/Vol]Ordered By: Alex Kaur on 11-20-2024 Serum or plasma creatinine measurement (mass/volume) 2.85 mg/dL High 0.55-1.02 [facility] Emergency Department Summary on 11-20-2024 Emergency Department Summary Normal [facility] Eosinophil percentageOrdered By: Alex Kaur on 11-20-2024 Eosinophil percentage 7.6 % High 0-5 [facility] Erythrocyte distribution wid th (RBC) [Entitic vol]Ordered By: Alex Kaur on 11-20-2024 Erythrocyte distribution width standard deviation 42.2 fl 35.1-43.9 [facility] Erythrocyte distribution wid th (RBC) [Ratio]Ordered By: Alex Kaur on 11-20-2024 Erythrocyte distribution width ratio 12.6 % 11.6-14.6 [facility] Estimated glomerular filtrat ion rate (GFR) AmericanOrdered By: Alex Kaur on 11-20-2024 Estimated glomerular filtration rate (GFR) 21 mL/min Low >60 [facility] Estimation of creatinine abdulkadir aranceOrdered By: Alex Kaur on 11-20-2024 Estimation of creatinine clearance 15.85 ml/min [facility] Glomerular filtration rate ( GFR) estimationOrdered By: Alex Kaur on 11-20-2024 Glomerular filtration rate (GFR) estimation 18 mL/min Low >60 [facility] Glucose measurementOrdered B y: Alex Kaur on 11-20-2024 Glucose measurement 105 mg/dL 74-106 [facility] Hematocrit Auto (Bld) [Volum e fraction]Ordered By: Alex Kaur on 11-20-2024 Automated blood hematocrit (percentage) 35.8 % Low 37-47 [facility] Hemoglobin measurementOrdere d By: Alex Kaur on 11-20-2024 Hemoglobin measurement 11.5 g/dL Low 12.0-15.0 [facility] Immature granulocytes/100 WB C Auto (Bld)Ordered By: Alex Kaur on 11-20-2024 Automated immature granulocyte percentage 0.500 % 0.0-0.9 [facility] L501.4020on 11-20-2024 TROPONIN-I HS 108 pg/mL High 3.0-54.0 [facility] Comment on above: Order Comment: 'TROP ' Serial specimen #1, #2 or #3: 2 Result Comment: Ry adhikari Note: New Test Units and Gender Specific Reference Ranges. For more information see Policy Stat Procedure [place] High Sensitivity Troponin (TNIH) and attachments. Performed By: #### L 501.4020 ####[facility] [address] [place], [place], [address] TROPONIN-I HS 113 pg/mL High 3.0-54.0 [facility] Comment on above: Order Comment: 'TROP ' Serial specimen #1, #2 or #3: 1 Result Comment: Ry adhikari Note: New Test Units and Gender Specific Reference Ranges. For more information see Policy Stat Procedure [place] High Sensitivity Troponin (TNIH) and attachments. Performed By: #### L 501.4020 ####[facility] [address] [place], [place], [address] Lymphocytes Auto (Unsp spec) [#/Vol]Ordered By: Alex Kaur on 11-20-2024 Absolute lymphocyte count 1.88 X10^3/uL 0.83-4.51 [facility] Lymphocytes/100 WBC Auto (Un sp spec)Ordered By: Alex Kaur on 11-20-2024 Automated lymphocyte count as percentage of total leukocytes 24.4 % 19-41 [facility] MCV (RBC) [Entitic vol]Order ed By: Alex Kaur on 11-20-2024 MCV (mean corpuscular volume) determination 94.7 fL 81-99 [facility] Mean corpuscular hemoglobin (MCH) determinationOrdered By: Alex Kaur on 11-20-2024 Mean corpuscular hemoglobin (MCH) determination 30.4 pg 27.0-32.0 [facility] Mean corpuscular hemoglobin concentration (MCHC) determinationOrdered By: Alex Kaur on 11-20-2024 Mean corpuscular hemoglobin concentration (MCHC) determination 32.1 g/dL 32-36 [facility] Mean platelet volume determi nationOrdered By: Alex Kaur on 11-20-2024 Mean platelet volume determination 9.1 fl 6.2-12.0 [facility] Monocyte percentageOrdered B y: Alex Kaur on 11-20-2024 Monocyte percentage 9.7 % 0-10 [facility] Neutrophil percentageOrdered By: Alex Kaur on 11-20-2024 Neutrophil percentage 57.2 % 47-70 [facility] No Panel InformationOrdered By: Alex Kaur on 11-20-2024 14 U/L Low 15-37 [facility] Nucleated red blood cell per centageOrdered By: Alex Kaur on 11-20-2024 Nucleated red blood cell percentage 0 % 0-5 [facility] Platelet countOrdered By: Benton Kaur on 11-20-2024 Platelet count 193 K/mm3 150-450 [facility] Potassium measurementOrdered By: Alex Kaur on 11-20-2024 Potassium measurement 4.4 mmol/L 3.5-5.1 [facility] RBC Auto (Bld) [#/Vol]Ordere d By: Alex Kaur on 11-20-2024 Automated blood erythrocyte count 3.78 M/mm3 Low 4.2-5.4 [facility] Serum anion gap measurementO rdered By: Alex Kaur on 11-20-2024 Serum anion gap measurement 2 Low 5-15 [facility] Serum globulin measurementOr dered By: Alex Kaur on 11-20-2024 Serum globulin measurement 3.4 g/dL 2.2-4.2 [facility] Sodium levelOrdered By: Alex Kaur on 11-20-2024 Sodium level 137 mmol/L 136-145 [facility] Total proteinOrdered By: Brooke Kaur on 11-20-2024 Total protein 6.3 g/dL Low 6.4-8.2 [facility] Troponin IOrdered By: Alex vidales on 11-20-2024 Troponin I 108 pg/mL High 3.0-54.0 [facility] Urea nitrogen [Mass/Vol]Orde red By: Alex Kaur on 11-20-2024 Serum or plasma urea nitrogen measurement (mass/volume) 23 mg/dL High 05-20 [facility] White blood cell (WBC) count Ordered By: Alex Kaur on 11-20-2024 White blood cell (WBC) count 7.7 K/mm3 4.4-11.0 [facility] Basic Metabolic Profile (BMP )on 11-04-2024 BUN Normal 05-20 [facility] Comment on above: Order Comment: 1Y Result Comment: PT. DISCHARGED Performed By: #### L 500.2500, L100.0100 ####[facility] [address] [place], [address] BUN/CRE Normal 10-20 [facility] Comment on above: Order Comment: 1Y Result Comment: PT. DISCHARGED Performed By: #### L 500.2500, L100.0100 ####[facility] [address] [place], [address] CA,Total Normal 8.5-10.1 [facility] Comment on above: Order Comment: 1Y Result Comment: PT. DISCHARGED Performed By: #### L 500.2500, L100.0100 ####[facility] [address] [place], [address] CL Normal 98-107 [facility] Comment on above: Order Comment: 1Y Result Comment: PT. DISCHARGED Performed By: #### L 500.2500, L100.0100 ####[facility] [address] [place], [address] CO2 Normal 21.0-32.0 [facility] Comment on above: Order Comment: 1Y Result Comment: PT. DISCHARGED Performed By: #### L 500.2500, L100.0100 ####[facility] [address] [place], [address] CREAT,SERUM Normal 0.55-1.02 [facility] Comment on above: Order Comment: 1Y Result Comment: PT. DISCHARGED Performed By: #### L 500.2500, L100.0100 ####[facility] [address] [place], [address] EST GFR Normal >60 [facility] Comment on above: Order Comment: 1Y Result Comment: PT. DISCHARGED Performed By: #### L 500.2500, L100.0100 ####[facility] [address] [place], [address] EST GFR - AA Normal >60 [facility] Comment on above: Order Comment: 1Y Result Comment: PT. DISCHARGED Performed By: #### L 500.2500, L100.0100 ####[facility] [address] [place], [address] GAP Normal 5-15 [facility] Comment on above: Order Comment: 1Y Result Comment: PT. DISCHARGED Performed By: #### L 500.2500, L100.0100 ####[facility] [address] [place], [address] GLU Normal 74-106 [facility] Comment on above: Order Comment: 1Y Result Comment: PT. DISCHARGED Performed By: #### L 500.2500, L100.0100 ####[facility] [address] [place], [address] Potassium Normal 3.5-5.1 [facility] Comment on above: Order Comment: 1Y Result Comment: PT. DISCHARGED Performed By: #### L 500.2500, L100.0100 ####[facility] [address] [place], [address] Basic Metabolic Profile (BMP) Normal 136-145 [facility] Comment on above: Order Comment: 1Y Result Comment: PT. DISCHARGED Performed By: #### L 500.2500, L100.0100 ####[facility] [address] [place], [address] CBC W/Diff, Automatedon 01-0 2-2024 Absolute Neut Normal 2.0-7.7 [facility] Comment on above: Result Comment: PT D ISCHARGED Performed By: #### L 500.2500, L100.0100 ####[facility] [address] [place], [address] HCT Normal 37-47 [facility] Comment on above: Result Comment: PT D ISCHARGED Performed By: #### L 500.2500, L100.0100 ####[facility] [address] [place], [address] HGB Normal 12.0-15.0 [facility] Comment on above: Result Comment: PT D ISCHARGED Performed By: #### L 500.2500, L100.0100 ####[facility] [address] [place], [address] MCH Normal 27.0-32.0 [facility] Comment on above: Result Comment: PT D ISCHARGED Performed By: #### L 500.2500, L100.0100 ####[facility] [address] [place], [address] MCHC Normal 32-36 [facility] Comment on above: Result Comment: PT D ISCHARGED Performed By: #### L 500.2500, L100.0100 ####[facility] [address] [place], [address] MCV Normal 81-99 [facility] Comment on above: Result Comment: PT D ISCHARGED Performed By: #### L 500.2500, L100.0100 ####[facility] [address] [place], [address] NEUT% Normal 47-70 [facility] Comment on above: Result Comment: PT D ISCHARGED Performed By: #### L 500.2500, L100.0100 ####[facility] [address] [place], [address] PLT Normal 150-450 [facility] Comment on above: Result Comment: PT D ISCHARGED Performed By: #### L 500.2500, L100.0100 ####[facility] [address] [place], [address] RBC Normal 4.2-5.4 [facility] Comment on above: Result Comment: PT D ISCHARGED Performed By: #### L 500.2500, L100.0100 ####[facility] [address] [place], [address] RDW CV Normal 11.6-14.6 [facility] Comment on above: Result Comment: PT D ISCHARGED Performed By: #### L 500.2500, L100.0100 ####[facility] [address] [place], [address] RDW SD Normal 35.1-43.9 [facility] Comment on above: Result Comment: PT D ISCHARGED Performed By: #### L 500.2500, L100.0100 ####[facility] [address] [place], [address] WBC Normal 4.4-11.0 [facility] Comment on above: Result Comment: PT D ISCHARGED Performed By: #### L 500.2500, L100.0100 ####[facility] [address] [place], [address] Pulmonary Visit Reporton Pulmonary Visit Report Normal [facility] Dialysis Vein Map PRE-OP ADEBAYO ATon 11-02-2024 Dialysis Vein Map PRE-OP BILAT Normal [facility] Chest without Contraston Chest without Contrast Normal [facility] Endocrinology Visit Reporton 10-07-2024 Endocrinology Visit Report Normal [facility] Progress Noteon 08-31-2024 Progress Note Patient seen by co a t [facility]. Complete documentation including history with assessment and plan were documented in [facility] EMR. This encounter is for billing only. Normal [facility] Progress Noteon 08-27-2024 Progress Note Patient seen by co a t [facility]. Complete documentation including history with assessment and plan were documented in [facility] EMR. This encounter is for billing only. [facility] Progress Noteon 08-25-2024 Progress Note Patient seen by co a t [facility]. Complete documentation including history with assessment and plan were documented in [facility] EMR. This encounter is for billing only. [facility] 30on 08-24-2024 30 [facility] [id number] 08-24-2024 [id number] [facility] [id number] [facility] [id number] [facility] per [facility] request. Normal [facility] [id number] Auth obtained for SR H. SW messaged to set up transport, W[employer] P[employer] INST[employer]ER messaged to send orders and MAR. Normal [facility] BASIC METABOLIC PANELon 10-2 Anion gap [Moles/Vol] 6 mmol/L Normal 3-13 [facility] Comment on above: Performed By: #### L AB113, LAB15, [id number] ####[employer]: MARY SOTELO ([id number])[facility] ([facility])[address] [place] [address] Calcium [Mass/Vol] 7.3 mg/dL Low 8.4-10.4 [facility] Comment on above: Performed By: #### L AB113, LAB15, [id number] ####[employer]: MARY SOTELO ([id number])[facility] ([facility])[address] [place] [address] Chloride [Moles/Vol] 100 mmol/L Normal 98-107 [facility] Comment on above: Performed By: #### L AB113, LAB15, [id number] ####[employer]: MARY SOTELO ([id number])[facility] ([facility])[address] [place] [address] [place] CO2 [Moles/Vol] 25 mmol/L Normal 22-30 [facility] Comment on above: Performed By: #### L AB113, LAB15, [id number] ####[employer]: MARY SOTELO ([id number])[facility] ([facility])[address] [place] [address] Creatinine [Mass/Vol] 2.15 mg/dL High 0.52-1.04 [facility] Comment on above: Performed By: #### L AB113, LAB15, [id number] ####[employer]: MARY SOTELO ([id number])[facility] ([facility])[address] [place] [address] [place] GLOMERULAR FILTRATION RATE ML/MIN/1.73 SQ M.PREDICTED 25.2 mL/min/1.73m*2 Low >60.0 [facility] Comment on above: Result Comment: Calc ulation based on the Chronic Kidney Disease Epidemiology Collaboration (CKD-EPI) equation refit without adjustment for race Performed By: #### L AB113, LAB15, [id number] ####[employer]: MARY SOTELO ([id number])[facility] ([facility])[address] [place] [address] Glucose [Mass/Vol] 282 mg/dL High 70-100 [facility] Comment on above: Performed By: #### L AB113, LAB15, MIC125 ####[employer]: MARY SOTELO ([id number])[facility])[address] [place] [address] Potassium [Moles/Vol] 3.9 mmol/L Normal 3.5-5.1 [facility] Comment on above: Performed By: #### Dora AB113, LAB15, [id number] ####[employer]: MARY SOTELO ([id number])[facility] ([facility])[address] [place] [address] Sodium [Moles/Vol] 130 mmol/L Low 135-145 [facility] Comment on above: Performed By: #### L AB113, LAB15, [id number] ####[employer]: MARY SOTELO ([id number])[facility])[address] [place] [address] Urea nitrogen [Mass/Vol] 20 mg/dL High 7-17 [facility] Comment on above: Performed By: #### L AB113, LAB15, [id number] ####[employer]: MARY SOTELO ([id number])[facility])[address] [place] [address] Basic metabolic 1998 panelon 08-24-2024 Anion gap [Moles/Vol] 6 mmol/L 3 - 13 mmol/L [facility] Calcium [Mass/Vol] 7.3 mg/dL Low 8.4 - 10. 4 mg/dL [facility] Chloride [Moles/Vol] 100 mmol/L 98 - 10 7 mmol/L [facility] CO2 [Moles/Vol] 25 mmol/L 22 - 30 mmol/L [facility] Creatinine [Mass/Vol] 2.15 mg/dL High 0.52 - 1.04 mg/dL [facility] GFR/1.73 sq M.predicted (S/P/Bld) [Vol rate/Area] 25.2 mL/min Low - PINF [facility] Glucose [Mass/Vol] 282 mg/dL High 70 - 100 mg/dL [facility] Interpretation and review of laboratory results Abnormal [facility] Potassium [Moles/Vol] 3.9 mmol/L 3.5 - 5.1 mmol/L [facility] Sodium [Moles/Vol] 130 mmol/L Low 135 - 145 mmol/L [facility] Urea nitrogen [Mass/Vol] 20 mg/dL High 7 - 17 mg/dL [facility] CBC W Auto Differential pane l (Bld)on 08-24-2024 Basophils (Bld) [#/Vol] 0 10*3/uL 0.0 - 0.2 10*3/uL [facility] Basophils/100 WBC (Bld) 0.5 % 0.0 - 2.0 % [facility] Eosinophils (Bld) [#/Vol] 0.4 10*3/uL 0.0 - 0.5 10*3/uL [facility] Eosinophils/100 WBC (Bld) 7.2 % High 0.0 - 6.0 % [facility] Erythrocyte distribution width (RBC) [Ratio] 16.3 % High 11.5 - 15.0 % [facility] Hematocrit (Bld) [Volume fraction] 25.5 % Low 35.0 - 47.0 % [facility] Hemoglobin (Bld) [Mass/Vol] 8.2 g/dL Low 11.7 - 16.0 g/dL [facility] Immature granulocytes (Bld) [#/Vol] 0 10*3/uL NINF - 0.1 10*3/uL [facility] Immature granulocytes/100 WBC (Bld) 0.3 % 0.0 - 2.0 % [facility] Interpretation and review of laboratory results Abnormal [facility] Lymphocytes (Bld) [#/Vol] 1.1 10*3/uL 1.0 - 4.3 10*3/uL [facility] Lymphocytes/100 WBC (Bld) 18.6 % 15.0 - 45.0 % [facility] MCH (RBC) [Entitic mass] 29.1 pg 26.0 - 34.0 pg [facility] MCHC (RBC) [Mass/Vol] 32.2 % 30.5 - 36.0 % [facility] MCV (RBC) [Entitic vol] 90.4 fL 77.0 - 99.0 fL [facility] Monocytes (Bld) [#/Vol] 0.4 10*3/uL 0.0 - 0.9 10*3/uL [facility] Monocytes/100 WBC (Bld) 7.6 % 5.0 - 13.0 % [facility] Neutrophils (Bld) [#/Vol] 3.8 10*3/uL 1.8 - 7.5 10*3/uL [facility] Neutrophils/100 WBC (Bld) 65.8 % 38.0 - 82.0 % [facility] Nucleated RBC/100 WBC (Bld) [Ratio] 0 % [facility] Platelet mean volume (Bld) [Entitic vol] 10.6 fL 9.0 - 12.7 fL [facility] Platelets (Bld) [#/Vol] 198 10*3/uL 140 - 440 10*3/uL [facility] RBC (Bld) [#/Vol] 2.82 10*6/uL Low 3.80 - 5.2 0 10*6/uL [facility] WBC (Bld) [#/Vol] 5.8 10*3/uL 3.6 - 10.7 10*3/uL [facility] CBC WITH AUTO DIFFERENTIALon 08-24-2024 Basophils (Bld) [#/Vol] 0.0 10*3/uL Normal 0.0-0.2 [facility] Comment on above: Performed By: #### L [id number] ####[employer]: MARY SOTELO ([id number])[facility] ([address] Basophils/100 WBC (Bld) 0.5 % Normal 0.0-2.0 [facility] Comment on above: Performed By: #### L [id number] ####[employer]: MARY SOTELO ([id number])[facility])[address] [place] [address] Eosinophils (Bld) [#/Vol] 0.4 10*3/uL Normal 0.0-0.5 [facility] Comment on above: Performed By: #### L [id number] ####[employer]er: MARY SOTELO ([id number])[facility])[address] [place] [address] Eosinophils/100 WBC (Bld) 7.2 % High 0.0-6.0 [facility] Comment on above: Performed By: #### L [id number] ####[employer]er: MARY SOTELO ([id number])[address] Erythrocyte distribution width (RBC) [Ratio] 16.3 % High 11.5-15.0 [facility] Comment on above: Performed By: #### L [id number] ####[employer]: MARY SOTELO ([id number])[facility])[address] [place] [address] Hematocrit (Bld) [Volume fraction] 25.5 % Low 35.0-47.0 [facility] Comment on above: Performed By: #### L [id number] ####[employer]er: MARY SOTELO ([id number])[address] Hemoglobin (Bld) [Mass/Vol] 8.2 g/dL Low 11.7-16.0 [facility] Comment on above: Performed By: #### L [id number] ####[employer]er: MARY SOTELO ([id number])[facility])[address] [place] [address] IMMATURE GRANS % 0.3 % Normal 0.0-2.0 [facility] Comment on above: Performed By: #### L [id number] ####[employer]er: MARY SOTELO ([id number])[address] IMMATURE GRANS ABSOLUTE 0.0 10*3/uL Normal <0.1 [facility] Comment on above: Performed By: #### L [id number] ####[employer]er: MARY SOTELO ([id number])[facility])[address] [place] [address] Lymphocytes (Bld) [#/Vol] 1.1 10*3/uL Normal 1.0-4.3 [facility] Comment on above: Performed By: #### L [id number] ####[employer]er: MARY SOTELO ([id number])[facility])[address] [place] [address] Lymphocytes/100 WBC (Bld) 18.6 % Normal 15.0-45.0 [facility] Comment on above: Performed By: #### L [id number] ####[employer]er: MARY SOTELO ([id number])[facility])[address] [place] [address] MCH (RBC) [Entitic mass] 29.1 pg Normal 26.0-34.0 [facility] Comment on above: Performed By: #### L [id number] ####[employer]er: MARY SOTELO ([id number])[facility])[address] [place] [address] MCHC 32.2 % Normal 30.5-36.0 [facility] Comment on above: Performed By: #### L [id number] ####[employer]er: MARY SOTELO ([id number])[facility])[address] [place] [address] MCV (RBC) [Entitic vol] 90.4 fL Normal 77.0-99.0 [facility] Comment on above: Performed By: #### L [id number] ####[employer]er: MARY SOTELO ([id number])[facility])[address] [place] [address] Monocytes (Bld) [#/Vol] 0.4 10*3/uL Normal 0.0-0.9 [facility] Comment on above: Performed By: #### L [id number] ####D[employer]er: MARY SOTELO ([id number])[facility] ([facility])[address] [place] [address] Monocytes/100 WBC (Bld) 7.6 % Normal 5.0-13.0 [facility] Comment on above: Performed By: #### L [id number] ####[employer]er: MARY SOTELO ([id number])[facility] ([facility])[address] [place] [address] NEUTROPHILS ABSOLUTE 3.8 10*3/uL Normal 1.8-7.5 [facility] Comment on above: Performed By: #### L [id number] ####[employer]er: MARY SOTELO ([id number])[facility] ([facility])[address] [place] [address] Neutrophils/100 WBC (Bld) 65.8 % Normal 38.0-82.0 [facility] Comment on above: Performed By: #### L [id number] ####[employer]er: MARY SOTELO ([id number])[facility] ([facility])[address] [place] [address] NRBC 0.0 /100 WBCs Normal 0.0-2.0 [facility] Comment on above: Performed By: #### L [id number] ####[employer]er: MARY SOTELO ([id number])[facility] ([facility])[address] [place] [address] Platelet mean volume (Bld) [Entitic vol] 10.6 fL Normal 9.0-12.7 [facility] Comment on above: Performed By: #### L [id number] ####[employer]er: MARY SOTELO ([id number])[facility] ([facility])[address] [place] [address] Platelets (Bld) [#/Vol] 198 10*3/uL Normal 140-440 [facility] Comment on above: Performed By: #### L [id number] ####[employer]: MARY SOTELO ([id number])[facility])[address] [place] [address] RBC (Bld) [#/Vol] 2.82 10*6/uL Low 3.80-5.20 [facility] Comment on above: Performed By: #### L [id number] ####[employer]: MARY SOTELO ([id number])[facility])[address] [place] [address] WBC (Bld) [#/Vol] 5.8 10*3/uL Normal 3.6-10.7 [facility] Comment on above: Performed By: #### L [id number] ####[employer]: MARY SOTELO ([id number])[facility])[address] [place] [address] Laboratory - Chemistry and C hemistry - challengeon 08-24-2024 Glucose [Mass/Vol] 293 mg/dL High 70 - 100 mg/dL [facility] Glucose [Mass/Vol] 219 mg/dL High 70 - 100 mg/dL [facility] Glucose [Mass/Vol] 277 mg/dL High 70 - 100 mg/dL [facility] Magnesium [Mass/Vol] 1.8 mg/dL 1.6 - 2 .3 mg/dL [facility] MAGNESIUMon 08-24-2024 Magnesium [Mass/Vol] 1.8 mg/dL Normal 1.6-2.3 [facility] Comment on above: Performed By: #### L AB113, LAB15, [id number] ####[employer]er: MARY SOTELO ([id number])[facility])[address] [place] [address] Magnesium [Mass/Vol]on 08-24 Interpretation and review of laboratory results Normal [facility] No Panel Informationon 08-24 Interpretation and review of laboratory results Abnormal [facility] Interpretation and review of laboratory results Abnormal [facility] Interpretation and review of laboratory results Abnormal [facility] PHOSPHORUSon 08-24-2024 Phosphate [Mass/Vol] 1.8 mg/dL Low 2.5-4.5 [facility] Comment on above: Performed By: #### L AB113, LAB15, [id number] ####[employer]er: MARY SOTELO ([id number])[facility] [place] [address] [place] Phosphate [Moles/Vol]on 08-04 Interpretation and review of laboratory results Abnormal [facility] Phosphate [Mass/Vol] 1.8 mg/dL Low 2.5 - 4 .5 mg/dL [facility] Progress Noteon 08-24-2024 Progress Note Normal [facility] BASIC METABOLIC PANELon 08-04 Anion gap [Moles/Vol] 5 mmol/L Normal 3-13 [facility] Comment on above: Performed By: #### L AB15, [id number], [id number] ####[employer]er: MARY SOTELO ([id number])[facility] ([facility])[address] [place] [address] Calcium [Mass/Vol] 7.3 mg/dL Low 8.4-10.4 [facility] Comment on above: Performed By: #### L AB15, [id number], [id number] ####[employer]er: MARY SOTELO ([id number])[facility] ([facility])[address] [place] [address] [place] Chloride [Moles/Vol] 99 mmol/L Normal 98-107 [facility] Comment on above: Performed By: #### L AB15, [id number], [id number] ####[employer]er: MARY SOTELO ([id number])[facility] [place] [address] [place] CO2 [Moles/Vol] 27 mmol/L Normal 22-30 [facility] Comment on above: Performed By: #### L AB15, [id number], [id number] ####[employer]er: MARY SOTELO ([id number])[facility] ([facility])[address] [place] [address] [place] Creatinine [Mass/Vol] 3.39 mg/dL High 0.52-1.04 [facility] Comment on above: Performed By: #### L AB15, [id number], [id number] ####D[employer]er: MARY SOTELO ([id number])[facility])[address] [place] [address] GLOMERULAR FILTRATION RATE ML/MIN/1.73 SQ M.PREDICTED 14.6 mL/min/1.73m*2 Low >60.0 [facility] Comment on above: Result Comment: Calc ulation based on the Chronic Kidney Disease Epidemiology Collaboration (CKD-EPI) equation refit without adjustment for race Performed By: #### Dora AB15, [id number], [id number] ####[employer]er: MARY SOTELO ([id number])[facility] ([facility])[address] [place] [address] Glucose [Mass/Vol] 299 mg/dL High 70-100 [facility] Comment on above: Performed By: #### Dora AB15, [id number], DDE746 ####D[employer]er: MARY SOTELO ([id number])[facility])[address] [place] [address] Potassium [Moles/Vol] 4.0 mmol/L Normal 3.5-5.1 [facility] Comment on above: Performed By: #### Dora AB15, SZS571, [id number] ####D[employer] Mixer: MARY SOTELO ([id number])[facility])[address] [place] [address] Sodium [Moles/Vol] 130 mmol/L Low 135-145 [facility] Comment on above: Performed By: #### L AB15, IMD011, [id number] ####D[employer]er: MARY SOTELO ([id number])[facility])[address] [place] [address] [place] Urea nitrogen [Mass/Vol] 37 mg/dL High 7-17 [facility] Comment on above: Performed By: #### L AB15, [id number], PLV325 ####D[employer]er: MARY SOTELO ([id number])[facility])[address] [place] [address] Bacteria identified Cx Nom ( U)Ordered By: Kalia Gifford on 08-23-2024 Interpretation and review of laboratory results Abnormal [facility] Basic metabolic 1998 panelon 08-23-2024 Anion gap [Moles/Vol] 5 mmol/L 3 - 13 mmol/L [facility] Calcium [Mass/Vol] 7.3 mg/dL Low 8.4 - 10. 4 mg/dL [facility] Chloride [Moles/Vol] 99 mmol/L 98 - 10 7 mmol/L [facility] CO2 [Moles/Vol] 27 mmol/L 22 - 30 mmol/L [facility] Creatinine [Mass/Vol] 3.39 mg/dL High 0.52 - 1.04 mg/dL [facility] GFR/1.73 sq M.predicted (S/P/Bld) [Vol rate/Area] 14.6 mL/min Low - PINF [facility] Glucose [Mass/Vol] 299 mg/dL High 70 - 100 mg/dL [facility] Interpretation and review of laboratory results Abnormal [facility] Potassium [Moles/Vol] 4 mmol/L 3.5 - 5.1 mmol/L [facility] Sodium [Moles/Vol] 130 mmol/L Low 135 - 145 mmol/L [facility] Urea nitrogen [Mass/Vol] 37 mg/dL High 7 - 17 mg/dL [facility] CARECOORDon 08-23-2024 CARECOORD Normal [facility] CBC W Auto Differential pane l (Bld)on 08-23-2024 Basophils (Bld) [#/Vol] 0 10*3/uL 0.0 - 0.2 10*3/uL [facility] Basophils/100 WBC (Bld) 0.2 % 0.0 - 2.0 % [facility] Eosinophils (Bld) [#/Vol] 0.1 10*3/uL 0.0 - 0.5 10*3/uL [facility] Eosinophils/100 WBC (Bld) 1.1 % 0.0 - 6.0 % [facility] Erythrocyte distribution width (RBC) [Ratio] 15.9 % High 11.5 - 15.0 % [facility] Hematocrit (Bld) [Volume fraction] 25.5 % Low 35.0 - 47.0 % [facility] Hemoglobin (Bld) [Mass/Vol] 8.2 g/dL Low 11.7 - 16.0 g/dL [facility] Immature granulocytes (Bld) [#/Vol] 0 10*3/uL NINF - 0.1 10*3/uL [facility] [employer] Immature granulocytes/100 WBC (Bld) 0.5 % 0.0 - 2.0 % [facility] Interpretation and review of laboratory results Abnormal [facility] Lymphocytes (Bld) [#/Vol] 0.6 10*3/uL Low 1.0 - 4.3 10*3/uL [facility] Lymphocytes/100 WBC (Bld) 14.6 % Low 15.0 - 45.0 % [facility] MCH (RBC) [Entitic mass] 28.9 pg 26.0 - 34.0 pg [facility] MCHC (RBC) [Mass/Vol] 32.2 % 30.5 - 36.0 % [facility] MCV (RBC) [Entitic vol] 89.8 fL 77.0 - 99.0 fL [facility] Monocytes (Bld) [#/Vol] 0.3 10*3/uL 0.0 - 0.9 10*3/uL [facility] Monocytes/100 WBC (Bld) 7.3 % 5.0 - 13.0 % [facility] Neutrophils (Bld) [#/Vol] 3.4 10*3/uL 1.8 - 7.5 10*3/uL [facility] Neutrophils/100 WBC (Bld) 76.3 % 38.0 - 82.0 % [facility] Nucleated RBC/100 WBC (Bld) [Ratio] 0 % [facility] Platelet mean volume (Bld) [Entitic vol] 10.4 fL 9.0 - 12.7 fL [facility] Platelets (Bld) [#/Vol] 167 10*3/uL 140 - 440 10*3/uL [facility] RBC (Bld) [#/Vol] 2.84 10*6/uL Low 3.80 - 5.2 0 10*6/uL [facility] WBC (Bld) [#/Vol] 4.4 10*3/uL 3.6 - 10.7 10*3/uL [facility] CBC WITH AUTO DIFFERENTIALon 08-23-2024 Basophils (Bld) [#/Vol] 0.0 10*3/uL Normal 0.0-0.2 [facility] Comment on above: Performed By: #### L [id number] ####[employer]er: MARY SOTELO ([id number])[facility])[address] [place] [address] Basophils/100 WBC (Bld) 0.2 % Normal 0.0-2.0 [facility] Comment on above: Performed By: #### L [id number] ####[employer]er: MARY SOTELO ([id number])[facility])[address] [place] [address] Eosinophils (Bld) [#/Vol] 0.1 10*3/uL Normal 0.0-0.5 [facility] Comment on above: Performed By: #### L [id number] ####[employer]er: MARY SOTELO ([id number])[address] Eosinophils/100 WBC (Bld) 1.1 % Normal 0.0-6.0 [facility] Comment on above: Performed By: #### L [id number] ####[employer]er: MARY SOTELO ([id number])[facility])[address] [place] [address] Erythrocyte distribution width (RBC) [Ratio] 15.9 % High 11.5-15.0 [facility] Comment on above: Performed By: #### L [id number] ####[employer]er: MARY SOTELO ([id number])[address] Hematocrit (Bld) [Volume fraction] 25.5 % Low 35.0-47.0 [facility] Comment on above: Performed By: #### L [id number] ####[employer]er: MARY SOTELO ([id number])[facility])[address] [place] [address] Hemoglobin (Bld) [Mass/Vol] 8.2 g/dL Low 11.7-16.0 [facility] Comment on above: Performed By: #### L [id number] ####[employer]er: MARY SOTELO ([id number])[facility])[address] [place] [address] IMMATURE GRANS % 0.5 % Normal 0.0-2.0 [facility] Comment on above: Performed By: #### L [id number] ####[employer]er: MARY SOTELO ([id number])[facility])[address] [place] [address] IMMATURE GRANS ABSOLUTE 0.0 10*3/uL Normal <0.1 [facility] Comment on above: Performed By: #### L [id number] ####[employer]er: MARY SOTELO ([id number])[facility])[address] [place] [address] Lymphocytes (Bld) [#/Vol] 0.6 10*3/uL Low 1.0-4.3 [facility] Comment on above: Performed By: #### L [id number] ####D[employer]er: MARY SOTELO ([id number])[facility])[address] [place] [address] Lymphocytes/100 WBC (Bld) 14.6 % Low 15.0-45.0 [facility] Comment on above: Performed By: #### L [id number] ####D[employer]er: MARY SOTELO ([id number])[facility])[address] [place] [address] MCH (RBC) [Entitic mass] 28.9 pg Normal 26.0-34.0 [facility] Comment on above: Performed By: #### L [id number] ####[employer]er: MARY SOTELO ([id number])[facility])[address] [place] [address] MCHC 32.2 % Normal 30.5-36.0 [facility] Comment on above: Performed By: #### L [id number] ####[employer]er: MARY SOTELO ([id number])[facility])[address] [place] [address] MCV (RBC) [Entitic vol] 89.8 fL Normal 77.0-99.0 [facility] Comment on above: Performed By: #### L [id number] ####D[employer]er: MARY SOTELO ([id number])[facility])[address] [place] [address] Monocytes (Bld) [#/Vol] 0.3 10*3/uL Normal 0.0-0.9 [facility] Comment on above: Performed By: #### L [id number] ####D[employer]er: MARY SOTELO ([id number])[facility] ([facility])[address] [place] [address] Monocytes/100 WBC (Bld) 7.3 % Normal 5.0-13.0 [facility] Comment on above: Performed By: #### L [id number] ####[employer]er: MARY SOTELO ([id number])[facility])[address] [place] [address] NEUTROPHILS ABSOLUTE 3.4 10*3/uL Normal 1.8-7.5 [facility] Comment on above: Performed By: #### L [id number] ####[employer]er: MARY SOTELO ([id number])[facility] ([facility])[address] [place] [address] Neutrophils/100 WBC (Bld) 76.3 % Normal 38.0-82.0 [facility] Comment on above: Performed By: #### L [id number] ####[employer]: MARY SOTELO ([id number])[facility])[address] [place] [address] NRBC 0.0 /100 WBCs Normal 0.0-2.0 [facility] Comment on above: Performed By: #### L [id number] ####[employer]: MARY SOTELO ([id number])[facility])[address] [place] [address] Platelet mean volume (Bld) [Entitic vol] 10.4 fL Normal 9.0-12.7 [facility] Comment on above: Performed By: #### L [id number] ####[employer]: MARY SOTELO ([id number])[facility] ([facility])[address] [place] [address] Platelets (Bld) [#/Vol] 167 10*3/uL Normal 140-440 [facility] Comment on above: Performed By: #### L [id number] ####[employer]: MARY SOTELO ([id number])[facility] ([facility])[address] [place] [address] RBC (Bld) [#/Vol] 2.84 10*6/uL Low 3.80-5.20 [facility] Comment on above: Performed By: #### L [id number] ####[employer]: MARY SOTELO ([id number])[facility] ([facility])[address] [place] [address] WBC (Bld) [#/Vol] 4.4 10*3/uL Normal 3.6-10.7 [facility] Comment on above: Performed By: #### L [id number] ####[employer]: MARY SOTELO ([id number])[facility] ([facility])[address] [place] [address] Consulton 08-23-2024 Consult Normal [facility] HBV surface Ab IA Qnon 08-23 [facility] HBV surface Ag IA Qlon 08-23 Interpretation and review of laboratory results Normal [facility] HEPATITIS B SURFACE ANTIBODY on 08-23-2024 HEPATITIS B VIRUS SURFACE AB <8.0 Normal [facility] Comment on above: Result Comment: ORDE R COMMENTS:Interpretation:<8.0 Non-Reactive8.0-11.9 Equivocal>= 12.0 Ab DetectedNote: If an equivocal result is interpreted, an antibody status is unable to be determined. Collect new specimen if clinically indicated. Performed By: #### L [id number], [id number] ####[employer]: MARY SOTELO ([id number])[facility])[address] [place] [address] HEPATITIS B SURFACE ANTIGENo n 08-23-2024 HEPATITIS B VIRUS SURFACE AG Not detected Normal Not Detected [facility] Comment on above: Performed By: #### L [id number], [id number] ####[employer]: MARY SOTELO ([id number])[facility] [place] [address] [place] IDNon 08-23-2024 IDN Normal [facility] IDN Normal [facility] Laboratory - Chemistry and C hemistry - challengeon 08-23-2024 Glucose [Mass/Vol] 126 mg/dL High 70 - 100 mg/dL [facility] Glucose [Mass/Vol] 166 mg/dL High 70 - 100 mg/dL [facility] Glucose [Mass/Vol] 129 mg/dL High 70 - 100 mg/dL [facility] Glucose [Mass/Vol] 287 mg/dL High 70 - 100 mg/dL [facility] Glucose [Mass/Vol] 304 mg/dL High 70 - 100 mg/dL [facility] Magnesium [Mass/Vol] 1.9 mg/dL 1.6 - 2 .3 mg/dL [facility] Laboratory - Microbiology an d Antimicrobial susceptibilityon 08-23-2024 HBV surface Ab IA Qn mIU/mL [facility] HBV surface Ag IA Ql Not detected Not Detected [facility] Laboratory - Microbiology an d Antimicrobial susceptibilityOrdered By: Kalia Gifford on 08-23-2024 Bacteria identified Cx Nom (U) Normal urogenital keven present [facility] Bacteria identified Cx Nom (U) 50,000-90,000 CFU/mL Abbi albicans Abnormal [facility] MAGNESIUMon 08-23-2024 Magnesium [Mass/Vol] 1.9 mg/dL Normal 1.6-2.3 [facility] Comment on above: Performed By: #### L [id number], [id number], [id number] ####[employer]: MARY SOTELO ([id number])[facility] [place] [address] No Panel Informationon 08-23 Interpretation and review of laboratory results Abnormal [facility] Interpretation and review of laboratory results Abnormal [facility] Interpretation and review of laboratory results Abnormal [facility] Interpretation and review of laboratory results Abnormal [facility] Interpretation and review of laboratory results Abnormal [facility] Interpretation and review of laboratory results Normal [facility] Nursing Noteon 08-23-2024 Nursing Note Normal [facility] PHOSPHORUSon 08-23-2024 Phosphate [Mass/Vol] 2.5 mg/dL Normal 2.5-4.5 [facility] Comment on above: Performed By: #### L AB15, [id number], [id number] ####Doughnut D[employer] Mixer: MARY SOTELO ([id number])[facility] ([facility])[address] [place] [address] [place] Phosphate [Moles/Vol]on 08-04 Phosphate [Mass/Vol] 2.5 mg/dL 2.5 - 4 .5 mg/dL [facility] Progress Noteon 08-23-2024 Progress Note Normal [facility] Progress Note Normal [facility] Progress Note Normal [facility] Progress Note Normal [facility] US Kidneyon 08-23-2024 [facility] Radiology Study observation (narrative) [facility] KidneyOrdered By: Daniel esquivel on 08-23-2024 [facility] Work Phone: US RENAL COMPLETEon 08-23-20 US RENAL COMPLETE Normal [facility]alt System [facility] BASIC METABOLIC PANELon 08-04 Anion gap [Moles/Vol] 5 mmol/L Normal 3-13 [facility] Comment on above: Performed By: #### L ABErika, LAB15, [id number] ####D[employer]nut D[employer]er: MARY SOTELO ([id number])[facility] ([facility])[address] [place] [address] [place] Calcium [Mass/Vol] 7.3 mg/dL Low 8.4-10.4 [facility] Comment on above: Performed By: #### L NOHEMI, LAB15, [id number] ####D[employer]nut D[employer] Mixer: MARY SOTELO ([id number])[facility] ([facility])[address] [place] [address] [place] Chloride [Moles/Vol] 97 mmol/L Low 98-107 [facility] Comment on above: Performed By: #### L AB103, LAB15, [id number] ####Doughnut Dough Mixer: MARY SOTELO ([id number])[facility] ([facility])[address] [place] [address] CO2 [Moles/Vol] 28 mmol/L Normal 22-30 [facility] Comment on above: Performed By: #### Dora AB103, LAB15, [id number] ####D[employer] D[employer] Mixer: MARY SOTELO ([id number])[facility] ([facility])[address] [place] [address] Creatinine [Mass/Vol] 3.04 mg/dL High 0.52-1.04 [facility] Comment on above: Performed By: #### Dora SONG, LAB15, [id number] ####Doughnut Dough Mixer: MARY SOTELO ([id number])[facility])[address] [place] [address] GLOMERULAR FILTRATION RATE ML/MIN/1.73 SQ M.PREDICTED 16.6 mL/min/1.73m*2 Low >60.0 [facility] Comment on above: Result Comment: Calc ulation based on the Chronic Kidney Disease Epidemiology Collaboration (CKD-EPI) equation refit without adjustment for race Performed By: #### Dora SONG, LAB15, [id number] ####Doughnut Dough Mixer: MARY SOTELO ([id number])[facility] ([facility])[address] [place] [address] [place] Glucose [Mass/Vol] 309 mg/dL High 70-100 [facility] Comment on above: Performed By: #### Dora AB103, LAB15, [id number] ####Doughnut Dough Mixer: MARY SOTELO ([id number])[facility])[address] [place] [address] [place] Potassium [Moles/Vol] 3.4 mmol/L Low 3.5-5.1 [facility] Comment on above: Performed By: #### Dora AB103, LAB15, [id number] ####Doughnut Dough Mixer: MARY SOTELO ([id number])[facility])[address] [place] [address] [place] Sodium [Moles/Vol] 130 mmol/L Low 135-145 [facility] Comment on above: Performed By: #### L AB103, LAB15, [id number] ####Doughnut Dough Mixer: MARY SOTELO ([id number])[facility] ([facility])[address] [place] [address] Urea nitrogen [Mass/Vol] 28 mg/dL High 7-17 [facility] Comment on above: Performed By: #### L AB103, LAB15, [id number] ####Doughnut Dough Mixer: MARY SOTELO ([id number])[facility] [place] [address] Basic metabolic 1998 panelon 08-22-2024 Anion gap [Moles/Vol] 5 mmol/L 3 - 13 mmol/L [facility] Calcium [Mass/Vol] 7.3 mg/dL Low 8.4 - 10. 4 mg/dL [facility] Chloride [Moles/Vol] 97 mmol/L Low 98 - 10 7 mmol/L [facility] CO2 [Moles/Vol] 28 mmol/L 22 - 30 mmol/L [facility] Creatinine [Mass/Vol] 3.04 mg/dL High 0.52 - 1.04 mg/dL [facility] GFR/1.73 sq M.predicted (S/P/Bld) [Vol rate/Area] 16.6 mL/min Low - PINF [facility] Glucose [Mass/Vol] 309 mg/dL High 70 - 100 mg/dL [facility] Interpretation and review of laboratory results Abnormal [facility] Potassium [Moles/Vol] 3.4 mmol/L Low 3.5 - 5.1 mmol/L [facility] Sodium [Moles/Vol] 130 mmol/L Low 135 - 145 mmol/L [facility] Urea nitrogen [Mass/Vol] 28 mg/dL High 7 - 17 mg/dL [facility] CALCIUM, IONIZEDon CALCIUM IONIZED 3.90 mg/dL Low 4.30-5.20 [facility] Comment on above: Performed By: #### L AB54 ####Doughnut Dough Mixer: MARY SOTELO ([id number])[facility] [place] [address] [place] PH, IONIZED CALCIUM 7.42 Normal 7.31-7.46 [facility] System [facility] Comment on above: Performed By: #### L AB54 ####Doughnut Dough Mixer: MARY SOTELO ([id number])[facility] ([facility] [place] [address] CBC W Auto Differential pane l (Bld)on 08-22-2024 Basophils (Bld) [#/Vol] 0 10*3/uL 0.0 - 0.2 10*3/uL [facility] Basophils/100 WBC (Bld) 0.4 % 0.0 - 2.0 % [facility] [employer] Eosinophils (Bld) [#/Vol] 0.4 10*3/uL 0.0 - 0.5 10*3/uL [facility] [employer] Eosinophils/100 WBC (Bld) 7.7 % High 0.0 - 6.0 % [facility] [employer] Erythrocyte distribution width (RBC) [Ratio] 16.2 % High 11.5 - 15.0 % [facility] [employer] Hematocrit (Bld) [Volume fraction] 26.6 % Low 35.0 - 47.0 % [facility] [employer] Hemoglobin (Bld) [Mass/Vol] 8.6 g/dL Low 11.7 - 16.0 g/dL [facility] [employer] Immature granulocytes (Bld) [#/Vol] 0 10*3/uL NINF - 0.1 10*3/uL [facility] [employer] Immature granulocytes/100 WBC (Bld) 0.4 % 0.0 - 2.0 % [facility] [employer] Interpretation and review of laboratory results Abnormal [facility] [employer] Lymphocytes (Bld) [#/Vol] 0.9 10*3/uL Low 1.0 - 4.3 10*3/uL [facility] [employer] Lymphocytes/100 WBC (Bld) 18.2 % 15.0 - 45.0 % [facility] [employer] MCH (RBC) [Entitic mass] 29.8 pg 26.0 - 34.0 pg [facility] [employer] MCHC (RBC) [Mass/Vol] 32.3 % 30.5 - 36.0 % [facility] [employer] MCV (RBC) [Entitic vol] 92 fL 77.0 - 99.0 fL [facility] [employer] Monocytes (Bld) [#/Vol] 0.4 10*3/uL 0.0 - 0.9 10*3/uL [facility] Monocytes/100 WBC (Bld) 7.9 % 5.0 - 13.0 % [facility] Neutrophils (Bld) [#/Vol] 3.1 10*3/uL 1.8 - 7.5 10*3/uL [facility] Neutrophils/100 WBC (Bld) 65.4 % 38.0 - 82.0 % [facility] Nucleated RBC/100 WBC (Bld) [Ratio] 0 % [facility] Platelet mean volume (Bld) [Entitic vol] 10.1 fL 9.0 - 12.7 fL [facility] Platelets (Bld) [#/Vol] 161 10*3/uL 140 - 440 10*3/uL [facility] RBC (Bld) [#/Vol] 2.89 10*6/uL Low 3.80 - 5.2 0 10*6/uL [facility] WBC (Bld) [#/Vol] 4.8 10*3/uL 3.6 - 10.7 10*3/uL [facility] CBC WITH AUTO DIFFERENTIALon 08-22-2024 Basophils (Bld) [#/Vol] 0.0 10*3/uL Normal 0.0-0.2 [facility] Comment on above: Performed By: #### L [id number] ####Doughnut D[employer] Mixer: MARY SOTELO ([id number])[facility])[address] [place] [address] Basophils/100 WBC (Bld) 0.4 % Normal 0.0-2.0 [facility] Comment on above: Performed By: #### L [id number] ####D[employer] D[employer] Mixer: MARY SOTELO ([id number])[facility] ([facility])[address] [place] [address] [place] Eosinophils (Bld) [#/Vol] 0.4 10*3/uL Normal 0.0-0.5 [facility] Comment on above: Performed By: #### L [id number] ####D[employer]nut D[employer] Mixer: MARY SOTELO ([id number])[facility] ([facility])[address] [place] [address] [place] Eosinophils/100 WBC (Bld) 7.7 % High 0.0-6.0 [facility] Comment on above: Performed By: #### L [id number] ####D[employer] D[employer] Mixer: MARY SOTELO ([id number])[address] Erythrocyte distribution width (RBC) [Ratio] 16.2 % High 11.5-15.0 [facility] Comment on above: Performed By: #### L [id number] ####D[employer] D[employer] Mixer: MARY SOTELO ([id number])[address] Hematocrit (Bld) [Volume fraction] 26.6 % Low 35.0-47.0 [facility] Comment on above: Performed By: #### L [id number] ####D[employer] D[employer] Mixer: MARY SOTELO ([id number])[address] Hemoglobin (Bld) [Mass/Vol] 8.6 g/dL Low 11.7-16.0 [facility] Comment on above: Performed By: #### L [id number] ####Dough[employer] D[employer] Mixer: MARY SOTELO ([id number])[address] IMMATURE GRANS % 0.4 % Normal 0.0-2.0 [facility] Comment on above: Performed By: #### L [id number] ####Doughnut Dough Mixer: MARY SOTELO ([id number])[address] IMMATURE GRANS ABSOLUTE 0.0 10*3/uL Normal <0.1 [facility] Comment on above: Performed By: #### L [id number] ####Doughnut D[employer] Mixer: MARY SOTELO ([id number])[address] Lymphocytes (Bld) [#/Vol] 0.9 10*3/uL Low 1.0-4.3 [facility] Comment on above: Performed By: #### L [id number] ####Doughnut Dough Mixer: MARY SOTELO ([id number])[facility])[address] [place] [address] Lymphocytes/100 WBC (Bld) 18.2 % Normal 15.0-45.0 [facility] Comment on above: Performed By: #### L [id number] ####Doughnut Dough Mixer: MARY SOTELO ([id number])[facility])[address] [place] [address] MCH (RBC) [Entitic mass] 29.8 pg Normal 26.0-34.0 [facility] Comment on above: Performed By: #### L [id number] ####Doughnut Dough Mixer: MARY SOTELO ([id number])[facility])[address] [place] [address] MCHC 32.3 % Normal 30.5-36.0 [facility] Comment on above: Performed By: #### L [id number] ####Doughnut D[employer] Mixer: MARY SOTELO ([id number])[facility] ([facility])[address] [place] [address] MCV (RBC) [Entitic vol] 92.0 fL Normal 77.0-99.0 [facility] Comment on above: Performed By: #### L [id number] ####Doughnut Dough Mixer: MARY SOTELO ([id number])[facility])[address] [place] [address] Monocytes (Bld) [#/Vol] 0.4 10*3/uL Normal 0.0-0.9 [facility] Comment on above: Performed By: #### L [id number] ####Doughnut Dough Mixer: MARY SOTELO ([id number])[facility])[address] [place] [address] Monocytes/100 WBC (Bld) 7.9 % Normal 5.0-13.0 [facility] Comment on above: Performed By: #### L [id number] ####Doughnut Dough Mixer: MARY SOTELO ([id number])[facility])[address] [place] [address] NEUTROPHILS ABSOLUTE 3.1 10*3/uL Normal 1.8-7.5 [facility] Comment on above: Performed By: #### L [id number] ####Doughnut Dough Mixer: MARY SOTELO ([id number])[facility] ([facility])[address] [place] [address] Neutrophils/100 WBC (Bld) 65.4 % Normal 38.0-82.0 [facility] Comment on above: Performed By: #### L [id number] ####Doughnut Dough Mixer: MARY SOTELO ([id number])[facility] ([facility])[address] [place] [address] NRBC 0.0 /100 WBCs Normal 0.0-2.0 [facility] Comment on above: Performed By: #### L [id number] ####Doughnut Dough Mixer: MARY SOTELO ([id number])[facility] ([facility])[address] [place] [address] Platelet mean volume (Bld) [Entitic vol] 10.1 fL Normal 9.0-12.7 [facility] Comment on above: Performed By: #### L [id number] ####Doughnut Dough Mixer: MARY SOTELO ([id number])[facility] ([facility])[address] [place] [address] Platelets (Bld) [#/Vol] 161 10*3/uL Normal 140-440 [facility] Comment on above: Performed By: #### L [id number] ####Doughnut D[employer] Mixer: MARY SOTELO ([id number])[facility] ([facility])[address] [place] [address] RBC (Bld) [#/Vol] 2.89 10*6/uL Low 3.80-5.20 [facility] Comment on above: Performed By: #### L [id number] ####Doughnut D[employer] Mixer: MARY SOTELO ([id number])[facility] ([facility])[address] [place] [address] [place] WBC (Bld) [#/Vol] 4.8 10*3/uL Normal 3.6-10.7 [facility] Comment on above: Performed By: #### L [id number] ####Doughnut Dough Mixer: MARY SOTELO ([id number])[facility] ([facility])[address] [place] [address] Calcium.ionized [Moles/Vol]o n 08-22-2024 Calcium.ionized (Bld) [Moles/Vol] 3.9 mg/dL Low 4.30 - 5.20 mg/dL [facility] Interpretation and review of laboratory results Abnormal [facility] PH, IONIZED CALCIUM 7.42 7.31 - 7.46 [facility] IDNon 08-22-2024 IDN Normal [facility] Laboratory - Chemistry and C hemistry - challengeon 08-22-2024 Glucose [Mass/Vol] 257 mg/dL High 70 - 100 mg/dL [facility] Glucose [Mass/Vol] 255 mg/dL High 70 - 100 mg/dL [facility] Glucose [Mass/Vol] 287 mg/dL High 70 - 100 mg/dL [facility] Glucose [Mass/Vol] 310 mg/dL High 70 - 100 mg/dL [facility] Magnesium [Mass/Vol] 2 mg/dL 1.6 - 2 .3 mg/dL [facility] MAGNESIUMon 08-22-2024 Magnesium [Mass/Vol] 2.0 mg/dL Normal 1.6-2.3 [facility] Comment on above: Performed By: #### L AB103, LAB15, [id number] ####Doughnut Dough Mixer: MARY SOTELO ([id number])[facility] ([facility])[address] [place] [address] Magnesium [Mass/Vol]on 08-22 Interpretation and review of laboratory results Normal [facility] No Panel Informationon 08-22 Interpretation and review of laboratory results Abnormal [facility] Interpretation and review of laboratory results Abnormal [facility] Interpretation and review of laboratory results Abnormal [facility] Interpretation and review of laboratory results Abnormal [facility] PHOSPHORUSon 08-22-2024 Phosphate [Mass/Vol] 2.3 mg/dL Low 2.5-4.5 [facility] Comment on above: Performed By: #### Dora AB103, LAB15, [id number] ####D[employer]nut D[employer] Mixer: MARY SOTELO ([id number])[facility] ([facility])[address] [place] [address] Phosphate [Moles/Vol]on 08-04 Interpretation and review of laboratory results Abnormal [facility] Phosphate [Mass/Vol] 2.3 mg/dL Low 2.5 - 4 .5 mg/dL [facility] Progress Noteon 08-22-2024 Progress Note [facility] Progress Note Normal [facility] Progress Note Normal [facility] Progress Note Normal [facility] BASIC METABOLIC PANELon 08-03 Anion gap [Moles/Vol] 7 mmol/L Normal 3-13 [facility] Comment on above: Performed By: #### Dora ABGabbie, LAB15, [id number] ####Doughnut D[employer] Mixer: MARY SOTELO ([id number])[facility] [place] [address] [place] Calcium [Mass/Vol] 7.8 mg/dL Low 8.4-10.4 [facility] Comment on above: Performed By: #### Dora ABGabbie, LAB15, [id number] ####Doughnut D[employer] Mixer: MARY SOTELO ([id number])[facility] [place] [address] [place] Chloride [Moles/Vol] 99 mmol/L Normal 98-107 [facility] Comment on above: Performed By: #### Dora AB113, LAB15, [id number] ####Doughnut D[employer] Mixer: MARY SOTELO ([id number])[facility] [place] [address] [place] CO2 [Moles/Vol] 27 mmol/L Normal 22-30 [facility] Comment on above: Performed By: #### L AB113, LAB15, [id number] ####Doughnut D[employer] Mixer: MARY SOTELO ([id number])[facility] ([facility])[address] [place] [address] [place] Creatinine [Mass/Vol] 4.52 mg/dL High 0.52-1.04 [facility] Comment on above: Performed By: #### L AB113, LAB15, [id number] ####Doughnut D[employer] Mixer: MARY SOTELO ([id number])[facility])[address] [place] [address] [place] GLOMERULAR FILTRATION RATE ML/MIN/1.73 SQ M.PREDICTED 10.3 mL/min/1.73m*2 Low >60.0 [facility] Comment on above: Result Comment: Calc ulation based on the Chronic Kidney Disease Epidemiology Collaboration (CKD-EPI) equation refit without adjustment for race Performed By: #### L AB113, LAB15, [id number] ####D[employer] D[employer]er: MARY SOTELO ([id number])[facility] ([facility])[address] [place] [address] Glucose [Mass/Vol] 73 mg/dL Normal 70-100 [facility] Comment on above: Performed By: #### Dora AB113, LAB15, [id number] ####D[employer] D[employer] Mixer: MARY SOTELO ([id number])[facility] ([facility])[address] [place] [address] Potassium [Moles/Vol] 3.2 mmol/L Low 3.5-5.1 [facility] Comment on above: Performed By: #### L AB113, LAB15, [id number] ####D[employer]nut D[employer] Mixer: MARY SOTELO ([id number])[facility] ([facility])[address] [place] [address] [place] Sodium [Moles/Vol] 133 mmol/L Low 135-145 [facility] Comment on above: Performed By: #### L AB113, LAB15, [id number] ####Doughnut D[employer] Mixer: MARY SOTELO ([id number])[facility])[address] [place] [address] [place] Urea nitrogen [Mass/Vol] 47 mg/dL High 7-17 [facility] Comment on above: Performed By: #### L AB113, LAB15, [id number] ####D[employer] Mixer: MARY [id number])[facility] ([facility])[address] [place] [address] BLOOD GAS ARTERIALon 10-19-2 024 Base excess Calc (Bld) [Moles/Vol] 3.2 mmol/L High -3.0-3.0 [facility] Comment on above: Performed By: #### L AB76 ####D[employer] D[employer] Mixer: MARY SOTELO ([id number])[facility] ([facility])[address] [place] [address] CO2 [Moles/Vol] 30.8 mmol/L High 23.0-27.0 [facility] Comment on above: Performed By: #### L AB76 ####Doughnut D[employer] Mixer: MARY SOTELO ([id number])[facility])[address] [place] [address] HCO3 (Bld) [Moles/Vol] 29.2 mmol/L High 21.0-25.0 [facility] Comment on above: Performed By: #### L AB76 ####D[employer]nut D[employer] Mixer: MARY SOTELO ([id number])[facility] ([facility])[address] [place] [address] Hemoglobin (Bld) [Mass/Vol] 10.2 g/dL Normal Screen only [facility] Comment on above: Performed By: #### L AB76 ####Doughnut D[employer] Mixer: MARY SOTELO ([id number])[facility])[address] [place] [address] OXYGEN SATURATION (%) IN ARTERIAL BLOOD 96.1 % Normal 95.0-100.0 [facility] Comment on above: Performed By: #### L AB76 ####D[employer] D[employer]er: MARY SOTELO ([id number])[facility] ([facility])[address] [place] [address] PCO2 ARTERIAL 51.3 mm Hg High >35.0-<45.0 [facility] Comment on above: Performed By: #### L AB76 ####D[employer]nut D[employer] Mixer: MARY SOTELO ([id number])[facility])[address] [place] [address] PH ARTERIAL 7.373 Normal 7.350-7.450 [facility] Comment on above: Performed By: #### L AB76 ####D[employer] D[employer]er: MARY SOTELO ([id number])[facility] ([facility])[address] [place] [address] PO2 ARTERIAL 85.9 mm Hg Normal 80.0-100.0 [facility] Comment on above: Performed By: #### L AB76 ####D[employer] D[employer]er: MARY SOTELO ([id number])[facility] ([facility])[address] [place] [address] SOURCE OF OXYGEN CPAP Normal [facility] Comment on above: Result Comment: 30% Performed By: #### L AB76 ####D[employer]er: MARY SOTELO ([id number])[facility] ([facility])[address] [place] [address] Base excess Calc (Bld) [Moles/Vol] 0.4 mmol/L Normal -3.0-3.0 [facility] Comment on above: Performed By: #### L AB76 ####D[employer]er: MARY SOTELO ([id number])[facility] ([facility])[address] [place] [address] CO2 [Moles/Vol] 29.5 mmol/L High 23.0-27.0 [facility] Comment on above: Performed By: #### L AB76 ####[employer]: MARY SOTELO ([id number])[facility] ([facility])[address] [place] [address] HCO3 (Bld) [Moles/Vol] 27.7 mmol/L High 21.0-25.0 [facility] Comment on above: Performed By: #### L AB76 ####D[employer]er: MARY SOTELO ([id number])[facility])[address] [place] [address] Hemoglobin (Bld) [Mass/Vol] 9.8 g/dL Normal Screen only [facility] Comment on above: Performed By: #### L AB76 ####[employer]er: MARY SOTELO ([id number])[facility] [place] [address] OXYGEN SATURATION (%) IN ARTERIAL BLOOD 96.6 % Normal 95.0-100.0 [facility] Comment on above: Performed By: #### L [id number] ####Doughnut Dough Mixer: MARY SOTELO ([id number])[facility] [place] [address] PCO2 ARTERIAL 59.5 mm Hg High >35.0-<45.0 [facility] Comment on above: Performed By: #### L [id number] ####Doughnut Dough Mixer: MARY SOTELO ([id number])[facility] ([facility])[address] [place] [address] PH ARTERIAL 7.286 Low 7.350-7.450 [facility] Comment on above: Performed By: #### L [id number] ####Doughnut Dough Mixer: MARY SOTELO ([id number])[facility] [place] [address] PO2 ARTERIAL 88.7 mm Hg Normal 80.0-100.0 [facility] Comment on above: Performed By: #### L [id number] ####Doughnut Dough Mixer: MARY SOTELO ([id number])[facility] ([facility])[address] [place] [address] SOURCE OF OXYGEN CPAP Normal [facility] Comment on above: Result Comment: 30% Performed By: #### L [id number] ####Doughnut Dough Mixer: MARY SOTELO ([id number])[facility] [place] [address] Basic metabolic 1998 panelon 08-21-2024 Anion gap [Moles/Vol] 7 mmol/L 3 - 13 mmol/L [facility] Calcium [Mass/Vol] 7.8 mg/dL Low 8.4 - 10. 4 mg/dL [facility] Chloride [Moles/Vol] 99 mmol/L 98 - 10 7 mmol/L [facility] CO2 [Moles/Vol] 27 mmol/L 22 - 30 mmol/L [facility] Creatinine [Mass/Vol] 4.52 mg/dL High 0.52 - 1.04 mg/dL [facility] GFR/1.73 sq M.predicted (S/P/Bld) [Vol rate/Area] 10.3 mL/min Low - PINF [facility] Glucose [Mass/Vol] 73 mg/dL 70 - 100 mg/dL [facility] Interpretation and review of laboratory results Abnormal [facility] Potassium [Moles/Vol] 3.2 mmol/L Low 3.5 - 5.1 mmol/L [facility] Sodium [Moles/Vol] 133 mmol/L Low 135 - 145 mmol/L [facility] Urea nitrogen [Mass/Vol] 47 mg/dL High 7 - 17 mg/dL [facility] [place] 08-21-2024 [place] Normal [facility] CBC W Auto Differential pane l (Bld)on 08-21-2024 Basophils (Bld) [#/Vol] 0 10*3/uL 0.0 - 0.2 10*3/uL [facility] Basophils/100 WBC (Bld) 0.3 % 0.0 - 2.0 % [facility] Eosinophils (Bld) [#/Vol] 0.6 10*3/uL High 0.0 - 0.5 10*3/uL [facility] Eosinophils/100 WBC (Bld) 9.4 % High 0.0 - 6.0 % [facility] Erythrocyte distribution width (RBC) [Ratio] 15.9 % High 11.5 - 15.0 % [facility] Hematocrit (Bld) [Volume fraction] 30.6 % Low 35.0 - 47.0 % [facility] Hemoglobin (Bld) [Mass/Vol] 9.9 g/dL Low 11.7 - 16.0 g/dL [facility] Immature granulocytes (Bld) [#/Vol] 0 10*3/uL NINF - 0.1 10*3/uL [facility] Immature granulocytes/100 WBC (Bld) 0.2 % 0.0 - 2.0 % [facility] Interpretation and review of laboratory results Abnormal [facility] Lymphocytes (Bld) [#/Vol] 1.2 10*3/uL 1.0 - 4.3 10*3/uL [facility] Lymphocytes/100 WBC (Bld) 19.6 % 15.0 - 45.0 % [facility] MCH (RBC) [Entitic mass] 29.6 pg 26.0 - 34.0 pg [facility] MCHC (RBC) [Mass/Vol] 32.4 % 30.5 - 36.0 % [facility] MCV (RBC) [Entitic vol] 91.3 fL 77.0 - 99.0 fL [facility] Monocytes (Bld) [#/Vol] 0.5 10*3/uL 0.0 - 0.9 10*3/uL [facility] Monocytes/100 WBC (Bld) 7.6 % 5.0 - 13.0 % [facility] Neutrophils (Bld) [#/Vol] 3.9 10*3/uL 1.8 - 7.5 10*3/uL [facility] Neutrophils/100 WBC (Bld) 62.9 % 38.0 - 82.0 % [facility] Nucleated RBC/100 WBC (Bld) [Ratio] 0 % [facility] Platelet mean volume (Bld) [Entitic vol] 10.5 fL 9.0 - 12.7 fL [facility] Platelets (Bld) [#/Vol] 157 10*3/uL 140 - 440 10*3/uL [facility] RBC (Bld) [#/Vol] 3.35 10*6/uL Low 3.80 - 5.2 0 10*6/uL [facility] WBC (Bld) [#/Vol] 6.2 10*3/uL 3.6 - 10.7 10*3/uL [facility] CBC WITH AUTO DIFFERENTIALon 08-21-2024 Basophils (Bld) [#/Vol] 0.0 10*3/uL Normal 0.0-0.2 [facility] Comment on above: Performed By: #### L [id number] ####D[employer]nut D[employer] Mixer: MARY SOTELO ([id number])[address] [address] [facility] Basophils/100 WBC (Bld) 0.3 % Normal 0.0-2.0 [facility] Comment on above: Performed By: #### L [id number] ####D[employer] Mixer: MARY SOTELO ([id number])[address] [place] [address] [place] Eosinophils (Bld) [#/Vol] 0.6 10*3/uL High 0.0-0.5 [facility] Comment on above: Performed By: #### L [id number] ####D[employer] Mixer: MARY SOTELO ([id number])[facility])[address] [place] [address] Eosinophils/100 WBC (Bld) 9.4 % High 0.0-6.0 [facility] Comment on above: Performed By: #### L [id number] ####D[employer] D[employer] Mixer: MARY SOTELO ([id number])[facility])[address] [place] [address] Erythrocyte distribution width (RBC) [Ratio] 15.9 % High 11.5-15.0 [facility] Comment on above: Performed By: #### L [id number] ####D[employer]nut [employer] Mixer: MARY SOTELO ([id number])[facility])[address] [place] [address] Hematocrit (Bld) [Volume fraction] 30.6 % Low 35.0-47.0 [facility] Comment on above: Performed By: #### L [id number] ####D[employer] D[employer] Mixer: MARY SOTELO ([id number])[address] Hemoglobin (Bld) [Mass/Vol] 9.9 g/dL Low 11.7-16.0 [facility] Comment on above: Performed By: #### L [id number] ####D[employer] Mixer: MARY SOTELO ([id number])[facility])[address] [place] [address] IMMATURE GRANS % 0.2 % Normal 0.0-2.0 [facility] Comment on above: Performed By: #### L [id number] ####D[employer]nut D[employer] Mixer: MARY SOTELO ([id number])[facility])[address] [place] [address] IMMATURE GRANS ABSOLUTE 0.0 10*3/uL Normal <0.1 [facility] Comment on above: Performed By: #### L [id number] ####D[employer]nut D[employer] Mixer: MARY SOTELO ([id number])[facility])[address] [place] [address] Lymphocytes (Bld) [#/Vol] 1.2 10*3/uL Normal 1.0-4.3 [facility] Comment on above: Performed By: #### L [id number] ####D[employer] D[employer] Mixer: MARY SOTELO ([id number])[facility])[address] [place] [address] Lymphocytes/100 WBC (Bld) 19.6 % Normal 15.0-45.0 [facility] Comment on above: Performed By: #### L [id number] ####D[employer] D[employer] Mixer: MARY SOTELO ([id number])[address] MCH (RBC) [Entitic mass] 29.6 pg Normal 26.0-34.0 [facility] Comment on above: Performed By: #### L [id number] ####D[employer]nut D[employer] Mixer: MARY SOTELO ([id number])[facility])[address] [place] [address] MCHC 32.4 % Normal 30.5-36.0 [facility] Comment on above: Performed By: #### L [id number] ####D[employer] D[employer] Mixer: MARY SOTELO ([id number])[address] MCV (RBC) [Entitic vol] 91.3 fL Normal 77.0-99.0 [facility] Comment on above: Performed By: #### L [id number] ####D[employer]nut D[employer] Mixer: MARY SOTELO ([id number])[address] Monocytes (Bld) [#/Vol] 0.5 10*3/uL Normal 0.0-0.9 [facility] Comment on above: Performed By: #### L [id number] ####D[employer] Mixer: MARY SOTELO ([id number])[facility])[address] [place] [address] Monocytes/100 WBC (Bld) 7.6 % Normal 5.0-13.0 [facility] Comment on above: Performed By: #### L [id number] ####D[employer]nut D[employer] Mixer: MARY SOTELO ([id number])[facility] ([facility])[address] [place] [address] NEUTROPHILS ABSOLUTE 3.9 10*3/uL Normal 1.8-7.5 [facility] Comment on above: Performed By: #### L [id number] ####D[employer]nut D[employer] Mixer: MARY SOTELO ([id number])[facility])[address] [place] [address] Neutrophils/100 WBC (Bld) 62.9 % Normal 38.0-82.0 [facility] Comment on above: Performed By: #### L [id number] ####D[employer] D[employer] Mixer: MARY SOTELO ([id number])[facility] ([facility])[address] [place] [address] NRBC 0.0 /100 WBCs Normal 0.0-2.0 [facility] Comment on above: Performed By: #### L [id number] ####D[employer] Mixer: MARY SOTELO ([id number])[facility] ([facility])[address] [place] [address] Platelet mean volume (Bld) [Entitic vol] 10.5 fL Normal 9.0-12.7 [facility] Comment on above: Performed By: #### L [id number] ####D[employer] Mixer: MARY SOTELO ([id number])[facility] ([facility])[address] [place] [address] [place] Platelets (Bld) [#/Vol] 157 10*3/uL Normal 140-440 [facility] Comment on above: Performed By: #### L [id number] ####D[employer] Mixer: MARY SOTELO ([id number])[facility] ([facility])[address] [place] [address] RBC (Bld) [#/Vol] 3.35 10*6/uL Low 3.80-5.20 [facility] Comment on above: Performed By: #### L [id number] ####D[employer]nut D[employer] Mixer: MARY SOTELO ([id number])[facility] ([facility])[address] [place] [address] WBC (Bld) [#/Vol] 6.2 10*3/uL Normal 3.6-10.7 [facility] Comment on above: Performed By: #### L [id number] ####D[employer] Mixer: MARY SOTELO ([id number])[facility] ([facility])[address] [place] [address] COMPLETE URINALYSISon 2023 BACTERIA (#/HPF) IN URINE Many Abnormal Negative [facility] Comment on above: Performed By: #### L [id number] ####D[employer] Mixer: MARY SOTELO ([id number])[facility] ([facility])[address] [place] [address] BILIRUBIN, TOTAL PRESENCE IN URINE Negative Normal Negative [facility] Comment on above: Performed By: #### L [id number] ####D[employer]nut D[employer] Mixer: MARY SOTELO ([id number])[facility])[address] [place] [address] Clarity (U) Extra Turbid Abnormal Clear [facility] Comment on above: Performed By: #### L [id number] ####D[employer] D[employer] Mixer: MARY SOTELO ([id number])[facility] ([facility])[address] [place] [address] Color (U) Yellow Normal Lt. Yellow [facility] Comment on above: Performed By: #### L [id number] ####D[employer]nut D[employer] Mixer: MARY SOTELO ([id number])[facility])[address] [place] [address] GLUCOSE (MG/DL) IN URINE Normal Normal Normal (<70) [facility] Comment on above: Performed By: #### L [id number] ####D[employer] D[employer] Mixer: MARY SOTELO ([id number])[facility] ([facility])[address] [place] [address] HEMOGLOBIN PRESENCE IN URINE 1.0 mg/dL Abnormal Negative [facility] Comment on above: Performed By: #### L [id number] ####D[employer] D[employer] Mixer: MARY SOTELO ([id number])[facility] ([facility])[address] [place] [address] HYALINE CASTS (#/LPF) IN URINE SEDIMENT BY MICROSCOPY Negative Normal Negative [facility] Comment on above: Performed By: #### L [id number] ####D[employer]nut D[employer] Mixer: MARY SOTELO ([id number])[facility] ([facility])[address] [place] [address] Ketones Ql (U) Negative Normal Negative [facility] Comment on above: Performed By: #### L [id number] ####D[employer]nut D[employer] Mixer: MARY SOTELO ([id number])[facility] ([facility])[address] [place] [address] LEUKOCYTE ESTERASE PRESENCE IN URINE BY TEST STRIP 500 Bere/uL Abnormal Negative [facility] Comment on above: Performed By: #### L [id number] ####Doughnut D[employer] Mixer: MARY SOTELO ([id number])[facility] ([facility])[address] [place] [address] NITRITE PRESENCE IN URINE Negative Normal Negative [facility] Comment on above: Performed By: #### L [id number] ####D[employer]nut D[employer] Mixer: MARY SOTELO ([id number])[facility] ([facility])[address] [place] [address] pH (U) 6.0 [pH] Normal 5.0-8.0 [facility] Comment on above: Performed By: #### L [id number] ####Doughnut Dough Mixer: MARY SOTELO ([id number])[facility])[address] [place] [address] Protein (U) [Mass/Vol] 100 mg/dL Abnormal Negative [facility] Comment on above: Performed By: #### L [id number] ####Doughnut D[employer] Mixer: MARY SOTELO ([id number])[facility] ([facility])[address] [place] [address] [place] RBC (#/HPF) IN URINE SEDIMENT >100 Abnormal 0-2 [facility] Comment on above: Performed By: #### L [id number] ####Doughnut D[employer] Mixer: MARY SOTELO ([id number])[facility] ([facility])[address] [place] [address] Specific gravity (U) [Rel density] 1.009 Normal 1.005-1.030 [facility] Comment on above: Performed By: #### L [id number] ####D[employer]nut D[employer] Mixer: MARY SOTELO ([id number])[facility] ([facility])[address] [place] [address] SQUAMOUS EPITHELIAL CELLS (#/HPF) IN URINE SEDIMENT Negative Normal 3-5 [facility] Comment on above: Performed By: #### L [id number] ####Doughnut D[employer] Mixer: MARY SOTELO ([id number])[facility] ([facility])[address] [place] [address] UROBILINOGEN (MG/DL) IN URINE Normal Normal Normal (0-1) [facility] Comment on above: Performed By: #### L [id number] ####Doughnut D[employer] Mixer: MARY SOTELO ([id number])[facility] ([facility])[address] [place] [address] [place] WBC (LEUKOCYTE) (#/HPF) IN URINE SEDIMENT >100 Abnormal 0-5 [facility] Comment on above: Performed By: #### L [id number] ####Doughnut D[employer] Mixer: MARY SOTELO ([id number])[facility] ([facility])[address] [place] [address] [place] WBC (LEUKOCYTE) CLUMPS (#/HPF) IN URINE SEDIMENT Many Abnormal Negative [facility] Comment on above: Performed By: #### L [id number] ####Doughnut D[employer] Mixer: MARY SOTELO ([id number])[facility] ([facility])[address] [place] [address] [place] YEAST (#/HPF) IN URINE Moderate Abnormal Negative [facility] Comment on above: Performed By: #### L [id number] ####Doughnut Dough Mixer: MARY SOTELO ([id number])[facility] ([facility])[address] [place] [address] [place] GLUCOSE, RANDOMon 08-21-2024 Glucose [Mass/Vol] 27 mg/dL Critically low 70-100 [facility] Comment on above: Performed By: #### L [id number] ####Doughnut Dough Mixer: MARY SOTELO ([id number])[facility] ([facility])[address] [place] [address] [place] Glucose (Bld) [Mass/Vol]Orde red By: Madison Donaldson on 08-21-2024 Glucose [Mass/Vol] 27 mg/dL Critically low 70 - 10 0 mg/dL [facility] Interpretation and review of laboratory results Abnormal [facility] Laboratory - Chemistry and C hemistry - challengeon 08-21-2024 Glucose [Mass/Vol] 228 mg/dL High 70 - 100 mg/dL [facility] Glucose [Mass/Vol] 123 mg/dL High 70 - 100 mg/dL [facility] Glucose [Mass/Vol] 110 mg/dL High 70 - 100 mg/dL [facility] Base excess Calc (Bld) [Moles/Vol] 3.2 mmol/L High -3.0 - 3.0 mmol/L [facility] CO2 (Bld) [Partial pressure] 51.3 mm[Hg] High - PINF [facility] CO2 [Moles/Vol] 30.8 mmol/L High 23.0 - 27.0 mmol/L [facility] HCO3 (Bld) [Moles/Vol] 29.2 mmol/L High 21.0 - 25.0 mmol/L [facility] Oxygen (Bld) [Partial pressure] 85.9 mm[Hg] [facility] pH (Bld) 7.373 [pH] 7.350 - 7.450 [facility] Glucose [Mass/Vol] 103 mg/dL High 70 - 100 mg/dL [facility] Glucose [Mass/Vol] 106 mg/dL High 70 - 100 mg/dL [facility] Glucose [Mass/Vol] 128 mg/dL High 70 - 100 mg/dL [facility] Glucose [Mass/Vol] 166 mg/dL High 70 - 100 mg/dL [facility] Glucose [Mass/Vol] mg/dL Low 70 - 100 mg/dL [facility] Base excess Calc (Bld) [Moles/Vol] 0.4 mmol/L -3.0 - 3.0 mmol/L [facility] CO2 (Bld) [Partial pressure] 59.5 mm[Hg] High - PINF [facility] CO2 [Moles/Vol] 29.5 mmol/L High 23.0 - 27.0 mmol/L [facility] HCO3 (Bld) [Moles/Vol] 27.7 mmol/L High 21.0 - 25.0 mmol/L [facility] Oxygen (Bld) [Partial pressure] 88.7 mm[Hg] [facility] pH (Bld) 7.286 [pH] Low 7.350 - 7.450 [facility] Magnesium [Mass/Vol] 2.1 mg/dL 1.6 - 2 .3 mg/dL [facility] Laboratory - Hematology and Cell countson 08-21-2024 Hemoglobin (Bld) [Mass/Vol] 10.2 g/dL Screen only [facility] Hemoglobin (Bld) [Mass/Vol] 9.8 g/dL Screen only [facility] MAGNESIUMon 08-21-2024 Magnesium [Mass/Vol] 2.1 mg/dL Normal 1.6-2.3 [facility] Comment on above: Performed By: #### L AB113, LAB15, [id number] ####Doughnut Dough Mixer: MARY SOTELO ([id number])[address] No Panel Informationon 08-21 Interpretation and review of laboratory results Abnormal [facility] Interpretation and review of laboratory results Abnormal [facility] Interpretation and review of laboratory results Abnormal [facility] Interpretation and review of laboratory results Abnormal [facility] Source Of Oxygen CPAP [facility] Interpretation and review of laboratory results Abnormal [facility] Interpretation and review of laboratory results Abnormal [facility] Interpretation and review of laboratory results Abnormal [facility] Interpretation and review of laboratory results Abnormal [facility] Interpretation and review of laboratory results Abnormal [facility] Interpretation and review of laboratory results Abnormal [facility] Interpretation and review of laboratory results Normal [facility] Nursing Noteon 08-21-2024 Nursing Note Normal [facility] PHOSPHORUSon 08-21-2024 Phosphate [Mass/Vol] 3.5 mg/dL Normal 2.5-4.5 [facility] Comment on above: Performed By: #### L AB113, LAB15, [id number] ####D[employer] D[employer] Mixer: MARY SOTELO ([id number])[facility] ([facility])[address] [place] [address] [place] Phosphate [Moles/Vol]on 08-03 Phosphate [Mass/Vol] 3.5 mg/dL 2.5 - 4 .5 mg/dL [facility] Progress Noteon 08-21-2024 Progress [facility] Progress Note Normal [facility] URINE CULTUREon 08-21-2024 Bacteria identified Cx Nom (U) Normal [facility] Comment on above: Performed By: #### L [id number] ####Doughnut D[employer] Mixer: MARY SOTELO ([id number])[facility] ([facility])[address] [place] [address] [place] Urinalysis complete panel (U )on 08-21-2024 Bacteria LM.HPF (Urine sed) [#/Area] Many Abnormal Negative /HPF [facility] Bilirubin Ql (U) Negative Negative mg/dL [facility] Clarity (U) Extra Turbid Abnormal Clear [facility] h Color (U) Yellow Lt. Yellow [facility] Epithelial cells.squamous LM.HPF (Urine sed) [#/Area] Negative [facility] Glucose Ql (U) Normal Normal (<70) mg/dL [facility] Hemoglobin Ql (U) 1.0 mg/dL Abnormal Negative [facility] Hyaline casts Auto (Urine sed) [#/Area] Negative Negative /LPF [facility] Interpretation and review of laboratory results Abnormal [facility] Ketones (U) [Mass/Vol] Negative Negat pawan mg/dL [facility] Leukocyte clumps LM.HPF (Urine sed) [#/Area] Many Abnormal Negative /HPF [facility] Leukocyte esterase Test strip Ql (U) 500 Abnormal Negative Bere/uL [facility] Nitrite Ql (U) Negative Negative [facility] th pH (U) 6.0 [pH] 5.0 - 8.0 pH [facility] Protein (U) [Mass/Vol] 100 mg/dL Abnormal Negative [facility] RBC LM.HPF (Urine sed) [#/Area] /[HPF] Abnormal [facility] Specific gravity (U) [Rel density] 1.009 1.005 - 1.030 [facility] Urobilinogen (U) [Mass/Vol] Normal Normal (0-1) mg/dL [facility] WBC LM.HPF (Urine sed) [#/Area] /[HPF] Abnormal [facility] Yeast.budding LM.HPF (Urine sed) [#/Area] Moderate Abnormal Negative /HPF [facility] BASIC METABOLIC PANELon 10-1 Anion gap [Moles/Vol] 8 mmol/L Normal 3-13 [facility] Comment on above: Performed By: #### L AB15, [id number], [id number] ####D[employer] D[employer] Mixer: MARY SOTELO ([id number])[facility] ([facility])[address] [place] [address] Calcium [Mass/Vol] 7.8 mg/dL Low 8.4-10.4 [facility] Comment on above: Performed By: #### L AB15, [id number], [id number] ####D[employer] D[employer] Mixer: MARY SOTELO ([id number])[facility] ([facility])[address] [place] [address] [place] Chloride [Moles/Vol] 97 mmol/L Low 98-107 [facility] Comment on above: Performed By: #### L AB15, [id number], [id number] ####D[employer] D[employer] Mixer: MARY SOTELO ([id number])[facility] ([facility])[address] [place] [address] CO2 [Moles/Vol] 24 mmol/L Normal 22-30 [facility] Comment on above: Performed By: #### L AB15, [id number], [id number] ####D[employer]nut D[employer] Mixer: MARY SOTELO ([id number])[facility] [place] [address] Creatinine [Mass/Vol] 3.58 mg/dL High 0.52-1.04 [facility] Comment on above: Performed By: #### L AB15, [id number], [id number] ####D[employer] D[employer] Mixer: MARY SOTELO ([id number])[facility] ([facility])[address] [place] [address] [place] GLOMERULAR FILTRATION RATE ML/MIN/1.73 SQ M.PREDICTED 13.6 mL/min/1.73m*2 Low >60.0 [facility] Comment on above: Result Comment: Calc ulation based on the Chronic Kidney Disease Epidemiology Collaboration (CKD-EPI) equation refit without adjustment for race Performed By: #### L AB15, [id number], AUS016 ####D[employer]er: MARY SOTELO ([id number])[facility] ([facility])[address] [place] [address] Glucose [Mass/Vol] 150 mg/dL High 70-100 [facility] Comment on above: Performed By: #### L AB15, [id number], [id number] ####D[employer] D[employer]er: MARY SOTELO ([id number])[facility] ([facility])[address] [place] [address] Potassium [Moles/Vol] 4.0 mmol/L Normal 3.5-5.1 [facility] Comment on above: Performed By: #### L AB15, [id number], [id number] ####D[employer] D[employer]er: MARY SOTELO ([id number])[facility] ([facility])[address] [place] [address] [place] Sodium [Moles/Vol] 129 mmol/L Low 135-145 [facility] Comment on above: Performed By: #### L AB15, [id number], [id number] ####D[employer]nut D[employer] Mixer: MARY SOTELO ([id number])[facility])[address] [place] [address] [place] Urea nitrogen [Mass/Vol] 41 mg/dL High 7-17 [facility] Comment on above: Performed By: #### L [id number], [id number], [id number] ####Doughnut Dough Mixer: MARY SOTELO ([id number])[facility] ([facility])[address] [place] [address] BLOOD GAS ARTERIALon 10-18-2 024 Base excess Calc (Bld) [Moles/Vol] -0.7000 mmol/L Normal -3.0-3.0 [facility] Comment on above: Performed By: #### L [id number] ####Doughnut Dough Mixer: MARY SOTELO ([id number])[facility] ([facility])[address] [place] [address] CO2 [Moles/Vol] 28.6 mmol/L High 23.0-27.0 [facility] Comment on above: Performed By: #### L [id number] ####Doughnut Dough Mixer: MARY SOTELO ([id number])[facility])[address] [place] [address] HCO3 (Bld) [Moles/Vol] 26.8 mmol/L High 21.0-25.0 [facility] Comment on above: Performed By: #### L [id number] ####Doughnut Dough Mixer: MARY SOTELO ([id number])[facility])[address] [place] [address] Hemoglobin (Bld) [Mass/Vol] 10.3 g/dL Normal Screen only [facility] Comment on above: Performed By: #### L [id number] ####Doughnut Dough Mixer: MARY SOTELO ([id number])[facility] ([facility])[address] [place] [address] OXYGEN SATURATION (%) IN ARTERIAL BLOOD 98.1 % Normal 95.0-100.0 [facility] Comment on above: Performed By: #### L [id number] ####Doughnut Dough Mixer: MARY SOTELO ([id number])[facility])[address] [place] [address] PCO2 ARTERIAL 59.2 mm Hg High >35.0-<45.0 [facility] Comment on above: Performed By: #### L [id number] ####Doughnut Dough Mixer: MARY SOTELO ([id number])[facility] ([facility])[address] [place] [address] PH ARTERIAL 7.274 Low 7.350-7.450 [facility] Comment on above: Performed By: #### L [id number] ####Doughnut Dough Mixer: MARY SOTELO ([id number])[facility] ([facility])[address] [place] [address] PO2 ARTERIAL 113.3 mm Hg High 80.0-100.0 [facility] Comment on above: Performed By: #### L [id number] ####Doughnut Dough Mixer: MARY SOTELO ([id number])[facility])[address] [place] [address] SOURCE OF OXYGEN 40% Oxygen Normal [facility] Comment on above: Performed By: #### L [id number] ####Doughnut Dough Mixer: MARY SOTELO ([id number])[facility] ([facility])[address] [place] [address] Base excess Calc (Bld) [Moles/Vol] 0.2 mmol/L Normal -3.0-3.0 [facility] Comment on above: Performed By: #### L [id number] ####Doughnut Dough Mixer: MARY SOTELO ([id number])[facility])[address] [place] [address] CO2 [Moles/Vol] 30.7 mmol/L High 23.0-27.0 [facility] Comment on above: Performed By: #### L [id number] ####Doughnut Dough Mixer: MARY SOTELO ([id number])[facility])[address] [place] [address] HCO3 (Bld) [Moles/Vol] 28.6 mmol/L High 21.0-25.0 [facility] Comment on above: Performed By: #### L [id number] ####Doughnut Dough Mixer: MARY SOTELO ([id number])[facility])[address] [place] [address] Hemoglobin (Bld) [Mass/Vol] 10.5 g/dL Normal Screen only [facility] Comment on above: Performed By: #### L [id number] ####Doughnut Dough Mixer: MARY SOTELO ([id number])[facility])[address] [place] [address] OXYGEN SATURATION (%) IN ARTERIAL BLOOD 96.9 % Normal 95.0-100.0 [facility] Comment on above: Performed By: #### L [id number] ####Doughnut Dough Mixer: MARY SOTELO ([id number])[facility] ([facility])[address] [place] [address] PCO2 ARTERIAL 67.9 mm Hg High >35.0-<45.0 [facility] Comment on above: Performed By: #### L [id number] ####Doughnut Dough Mixer: MARY SOTELO ([id number])[facility] ([facility])[address] [place] [address] PH ARTERIAL 7.242 Low 7.350-7.450 [facility] Comment on above: Performed By: #### L [id number] ####Doughnut Dough Mixer: MARY SOTELO ([id number])[facility] ([facility])[address] [place] [address] PO2 ARTERIAL 101.2 mm Hg High 80.0-100.0 [facility] Comment on above: Performed By: #### L [id number] ####Doughnut Dough Mixer: MRAY SOTELO ([id number])[facility] ([facility])[address] [place] [address] SOURCE OF OXYGEN 40% Oxygen Normal [facility] Comment on above: Performed By: #### L [id number] ####Doughnut Dough Mixer: MARY SOTELO ([id number])[facility] ([facility])[address] [place] [address] Base excess Calc (Bld) [Moles/Vol] 0.5 mmol/L Normal -3.0-3.0 [facility] Comment on above: Performed By: #### L [id number] ####Doughnut Dough Mixer: MARY SOTELO ([id number])[facility] ([facility])[address] [place] [address] CO2 [Moles/Vol] 31.0 mmol/L High 23.0-27.0 [facility] Comment on above: Performed By: #### L [id number] ####Doughnut Dough Mixer: MARY SOTELO ([id number])[facility] ([facility])[address] [place] [address] HCO3 (Bld) [Moles/Vol] 28.9 mmol/L High 21.0-25.0 [facility] Comment on above: Performed By: #### L [id number] ####Doughnut Dough Mixer: MARY SOTELO ([id number])[facility] ([facility])[address] [place] [address] Hemoglobin (Bld) [Mass/Vol] 10.4 g/dL Normal Screen only [facility] Comment on above: Performed By: #### L [id number] ####Doughnut Dough Mixer: MARY SOTELO ([id number])[facility] ([facility])[address] [place] [address] OXYGEN SATURATION (%) IN ARTERIAL BLOOD 68.2 % Low 95.0-100.0 [facility] Comment on above: Performed By: #### L [id number] ####Doughnut Dough Mixer: MARY SOTELO ([id number])[facility] ([facility])[address] [place] [address] PCO2 ARTERIAL 68.4 mm Hg High >35.0-<45.0 [facility] Comment on above: Performed By: #### L [id number] ####Doughnut Dough Mixer: MARY SOTELO ([id number])[facility] [place] [address] PH ARTERIAL 7.244 Low 7.350-7.450 [facility] Comment on above: Performed By: #### L [id number] ####Doughnut Dough Mixer: MARY SOTELO ([id number])[facility])[address] [place] [address] PO2 ARTERIAL 36.2 mm Hg Critically low 80.0-100.0 [facility] Comment on above: Performed By: #### L [id number] ####Doughnut Dough Mixer: MARY SOTELO ([id number])[facility])[address] [place] [address] SOURCE OF OXYGEN Bi-PAP Normal [facility] Comment on above: Result Comment: 10/07 , 3 L Performed By: #### L [id number] ####Doughnut Dough Mixer: MARY SOTELO ([id number])[facility] ([facility])[address] [place] [address] Base excess Calc (Bld) [Moles/Vol] -1.0000 mmol/L Normal -3.0-3.0 [facility] Comment on above: Performed By: #### L [id number] ####Doughnut Dough Mixer: MARY SOTELO ([id number])[facility] ([facility])[address] [place] [address] CO2 [Moles/Vol] 30.1 mmol/L High 23.0-27.0 [facility] Comment on above: Performed By: #### L [id number] ####Doughnut Dough Mixer: MARY SOTELO ([id number])[facility] ([facility])[address] [place] [address] HCO3 (Bld) [Moles/Vol] 27.9 mmol/L High 21.0-25.0 [facility] Comment on above: Performed By: #### L [id number] ####Doughnut Dough Mixer: MARY SOTELO ([id number])[facility])[address] [place] [address] Hemoglobin (Bld) [Mass/Vol] 10.1 g/dL Normal Screen only [facility] Comment on above: Performed By: #### L [id number] ####Doughnut Dough Mixer: MARY SOTELO ([id number])[facility])[address] [place] [address] OXYGEN SATURATION (%) IN ARTERIAL BLOOD 92.1 % Low 95.0-100.0 [facility] Comment on above: Performed By: #### L [id number] ####Doughnut Dough Mixer: MARY SOTELO ([id number])[facility] ([facility])[address] [place] [address] PCO2 ARTERIAL 71.5 mm Hg High >35.0-<45.0 [facility] Comment on above: Performed By: #### L [id number] ####Doughnut Dough Mixer: MARY SOTELO ([id number])[facility])[address] [place] [address] PH ARTERIAL 7.209 Low 7.350-7.450 [facility] Comment on above: Performed By: #### L [id number] ####Doughnut Dough Mixer: MARY SOTELO ([id number])[facility] [place] [address] PO2 ARTERIAL 63.4 mm Hg Low 80.0-100.0 [facility] Comment on above: Performed By: #### L [id number] ####Doughnut Dough Mixer: MARY SOTELO ([id number])[facility] ([facility])[address] [place] [address] SOURCE OF OXYGEN Nasal cannula Normal [facility] Comment on above: Result Comment: 3L Performed By: #### L [id number] ####Doughnut Dough Mixer: MARY SOTELO ([id number])[facility] [place] [address] Basic metabolic 1998 panelon 08-20-2024 Anion gap [Moles/Vol] 8 mmol/L 3 - 13 mmol/L [facility] [employer] Calcium [Mass/Vol] 7.8 mg/dL Low 8.4 - 10. 4 mg/dL [facility] Chloride [Moles/Vol] 97 mmol/L Low 98 - 10 7 mmol/L [facility] CO2 [Moles/Vol] 24 mmol/L 22 - 30 mmol/L [facility] Creatinine [Mass/Vol] 3.58 mg/dL High 0.52 - 1.04 mg/dL [facility] GFR/1.73 sq M.predicted (S/P/Bld) [Vol rate/Area] 13.6 mL/min Low - PINF [facility] [employer] Glucose [Mass/Vol] 150 mg/dL High 70 - 100 mg/dL [facility] Interpretation and review of laboratory results Abnormal [facility] Potassium [Moles/Vol] 4 mmol/L 3.5 - 5.1 mmol/L [facility] Sodium [Moles/Vol] 129 mmol/L Low 135 - 145 mmol/L [facility] Urea nitrogen [Mass/Vol] 41 mg/dL High 7 - 17 mg/dL [facility] CALCIUM, IONIZEDon CALCIUM IONIZED 4.30 mg/dL Normal 4.30-5.20 [facility] Comment on above: Performed By: #### L [id number] ####Doughnut Dough Mixer: MARY SOTELO ([id number])[facility] ([facility])[address] [place] [address] PH, IONIZED CALCIUM 7.25 Low 7.31-7.46 [facility] Comment on above: Performed By: #### L [id number] ####Doughnut Dough Mixer: MARY SOTELO ([id number])[facility] ([facility])[address] [place] [address] CARECOORDon 08-20-2024 CARECOORD Normal [facility] CBC W Auto Differential pane l (Bld)on 08-20-2024 Basophils (Bld) [#/Vol] 0 10*3/uL 0.0 - 0.2 10*3/uL [facility] Basophils/100 WBC (Bld) 0 % 0.0 - 2.0 % [facility] Eosinophils (Bld) [#/Vol] 0.1 10*3/uL 0.0 - 0.5 10*3/uL [facility] Eosinophils/100 WBC (Bld) 1.4 % 0.0 - 6.0 % [facility] Erythrocyte distribution width (RBC) [Ratio] 15.5 % High 11.5 - 15.0 % [facility] Hematocrit (Bld) [Volume fraction] 30.5 % Low 35.0 - 47.0 % [facility] Hemoglobin (Bld) [Mass/Vol] 9.9 g/dL Low 11.7 - 16.0 g/dL [facility] Immature granulocytes (Bld) [#/Vol] 0 10*3/uL NINF - 0.1 10*3/uL [facility] Immature granulocytes/100 WBC (Bld) 0.5 % 0.0 - 2.0 % [facility] Interpretation and review of laboratory results Abnormal [facility] [employer] Lymphocytes (Bld) [#/Vol] 0.6 10*3/uL Low 1.0 - 4.3 10*3/uL [facility] [employer] Lymphocytes/100 WBC (Bld) 10.8 % Low 15.0 - 45.0 % [facility] [employer] MCH (RBC) [Entitic mass] 29.5 pg 26.0 - 34.0 pg [facility] [employer] MCHC (RBC) [Mass/Vol] 32.5 % 30.5 - 36.0 % [facility] [employer] MCV (RBC) [Entitic vol] 90.8 fL 77.0 - 99.0 fL [facility] [employer] Monocytes (Bld) [#/Vol] 0.3 10*3/uL 0.0 - 0.9 10*3/uL [facility] [employer] Monocytes/100 WBC (Bld) 4.5 % Low 5.0 - 13.0 % [facility] [employer] Neutrophils (Bld) [#/Vol] 4.8 10*3/uL 1.8 - 7.5 10*3/uL [facility] [employer] Neutrophils/100 WBC (Bld) 82.8 % High 38.0 - 82.0 % [facility] [employer] Nucleated RBC/100 WBC (Bld) [Ratio] 0 % [facility] [employer] Platelet mean volume (Bld) [Entitic vol] 10.3 fL 9.0 - 12.7 fL [facility] [employer] Platelets (Bld) [#/Vol] 145 10*3/uL 140 - 440 10*3/uL [facility] [employer] RBC (Bld) [#/Vol] 3.36 10*6/uL Low 3.80 - 5.2 0 10*6/uL [facility] [employer] WBC (Bld) [#/Vol] 5.8 10*3/uL 3.6 - 10.7 10*3/uL [facility] CBC WITH AUTO DIFFERENTIALon 08-20-2024 Basophils (Bld) [#/Vol] 0.0 10*3/uL Normal 0.0-0.2 [facility] Comment on above: Performed By: #### L [id number] ####Doughnut Dough Mixer: MARY SOTELO ([id number])[facility] ([address] Basophils/100 WBC (Bld) 0.0 % Normal 0.0-2.0 [facility] Comment on above: Performed By: #### L [id number] ####Doughnut Dough Mixer: MARY SOTELO ([id number])[facility])[address] [place] [address] Eosinophils (Bld) [#/Vol] 0.1 10*3/uL Normal 0.0-0.5 [facility] Comment on above: Performed By: #### L [id number] ####Doughnut Dough Mixer: MARY SOTELO ([id number])[facility])[address] [place] [address] Eosinophils/100 WBC (Bld) 1.4 % Normal 0.0-6.0 [facility] Comment on above: Performed By: #### L [id number] ####Doughnut Dough Mixer: MARY SOTELO ([id number])[facility])[address] [place] [address] Erythrocyte distribution width (RBC) [Ratio] 15.5 % High 11.5-15.0 [facility] Comment on above: Performed By: #### L [id number] ####Doughnut Dough Mixer: MARY SOTELO ([id number])[facility])[address] [place] [address] Hematocrit (Bld) [Volume fraction] 30.5 % Low 35.0-47.0 [facility] Comment on above: Performed By: #### L [id number] ####Doughnut Dough Mixer: MARY SOTELO ([id number])[facility])[address] [place] [address] Hemoglobin (Bld) [Mass/Vol] 9.9 g/dL Low 11.7-16.0 [facility] Comment on above: Performed By: #### L [id number] ####Doughnut Dough Mixer: MARY SOTELO ([id number])[facility])[address] [place] [address] IMMATURE GRANS % 0.5 % Normal 0.0-2.0 [facility] Comment on above: Performed By: #### L [id number] ####Doughnut Dough Mixer: MARY SOTELO ([id number])[facility])[address] [place] [address] IMMATURE GRANS ABSOLUTE 0.0 10*3/uL Normal <0.1 [facility] Comment on above: Performed By: #### L [id number] ####Doughnut Dough Mixer: MARY SOTELO ([id number])[facility])[address] [place] [address] Lymphocytes (Bld) [#/Vol] 0.6 10*3/uL Low 1.0-4.3 [facility] Comment on above: Performed By: #### L [id number] ####Doughnut Dough Mixer: MARY SOTELO ([id number])[address] Lymphocytes/100 WBC (Bld) 10.8 % Low 15.0-45.0 [facility] Comment on above: Performed By: #### L [id number] ####Doughnut Dough Mixer: MARY SOTELO ([id number])[facility])[address] [place] [address] MCH (RBC) [Entitic mass] 29.5 pg Normal 26.0-34.0 [facility] Comment on above: Performed By: #### L [id number] ####Doughnut Dough Mixer: MARY SOTELO ([id number])[address] MCHC 32.5 % Normal 30.5-36.0 [facility] Comment on above: Performed By: #### L [id number] ####Doughnut Dough Mixer: MARY SOTELO ([id number])[address] MCV (RBC) [Entitic vol] 90.8 fL Normal 77.0-99.0 [facility] Comment on above: Performed By: #### L [id number] ####Doughnut D[employer] Mixer: MARY SOTELO ([id number])[facility])[address] [place] [address] Monocytes (Bld) [#/Vol] 0.3 10*3/uL Normal 0.0-0.9 [facility] Comment on above: Performed By: #### L [id number] ####Doughnut Dough Mixer: MARY SOTELO ([id number])[facility] ([facility])[address] [place] [address] Monocytes/100 WBC (Bld) 4.5 % Low 5.0-13.0 [facility] Comment on above: Performed By: #### L [id number] ####Doughnut Dough Mixer: MARY SOTELO ([id number])[facility])[address] [place] [address] NEUTROPHILS ABSOLUTE 4.8 10*3/uL Normal 1.8-7.5 [facility] Comment on above: Performed By: #### L [id number] ####Doughnut Dough Mixer: MARY SOTELO ([id number])[facility] ([facility])[address] [place] [address] Neutrophils/100 WBC (Bld) 82.8 % High 38.0-82.0 [facility] Comment on above: Performed By: #### L [id number] ####D[employer]nut D[employer] Mixer: MARY SOTELO ([id number])[facility] ([facility])[address] [place] [address] NRBC 0.0 /100 WBCs Normal 0.0-2.0 [facility] Comment on above: Performed By: #### L [id number] ####D[employer] D[employer] Mixer: MARY SOTELO ([id number])[facility] ([facility])[address] [place] [address] Platelet mean volume (Bld) [Entitic vol] 10.3 fL Normal 9.0-12.7 [facility] Comment on above: Performed By: #### L [id number] ####Doughnut D[employer] Mixer: MARY SOTELO ([id number])[facility] ([facility])[address] [place] [address] [place] Platelets (Bld) [#/Vol] 145 10*3/uL Normal 140-440 [facility] Comment on above: Performed By: #### L [id number] ####Doughnut D[employer] Mixer: MARY SOTELO ([id number])[facility])[address] [place] [address] RBC (Bld) [#/Vol] 3.36 10*6/uL Low 3.80-5.20 [facility] Comment on above: Performed By: #### L [id number] ####D[employer]nut D[employer] Mixer: MARY SOTELO ([id number])[facility] ([facility])[address] [place] [address] WBC (Bld) [#/Vol] 5.8 10*3/uL Normal 3.6-10.7 [facility] Comment on above: Performed By: #### L [id number] ####[employer]: MARY SOTELO ([id number])[address] Calcium.ionized [Moles/Vol]O rdered By: Fredy Friend on 08-20-2024 Calcium.ionized (Bld) [Moles/Vol] 4.3 mg/dL 4.30 - 5.20 mg/dL [facility] Interpretation and review of laboratory results Abnormal [facility] PH, IONIZED CALCIUM 7.25 Low 7.31 - 7.46 [facility] Consulton 08-20-2024 Consult Normal [facility] - Chemistry and C hemistry - challengeon 08-20-2024 Base excess Calc (Bld) [Moles/Vol] -0.7000 mmol/L -3.0 - 3.0 mmol/L [facility] CO2 (Bld) [Partial pressure] 59.2 mm[Hg] High - PINF [facility] CO2 [Moles/Vol] 28.6 mmol/L High 23.0 - 27.0 mmol/L [facility] HCO3 (Bld) [Moles/Vol] 26.8 mmol/L High 21.0 - 25.0 mmol/L [facility] Oxygen (Bld) [Partial pressure] 113.3 mm[Hg] High [facility] pH (Bld) 7.274 [pH] Low 7.350 - 7.450 [facility] Glucose [Mass/Vol] 124 mg/dL High 70 - 100 mg/dL [facility] Base excess Calc (Bld) [Moles/Vol] 0.2 mmol/L -3.0 - 3.0 mmol/L [facility] CO2 (Bld) [Partial pressure] 67.9 mm[Hg] High - PINF [facility] CO2 [Moles/Vol] 30.7 mmol/L High 23.0 - 27.0 mmol/L [facility] HCO3 (Bld) [Moles/Vol] 28.6 mmol/L High 21.0 - 25.0 mmol/L [facility] Oxygen (Bld) [Partial pressure] 101.2 mm[Hg] High [facility] pH (Bld) 7.242 [pH] Low 7.350 - 7.450 [facility] Base excess Calc (Bld) [Moles/Vol] 0.5 mmol/L -3.0 - 3.0 mmol/L [facility] CO2 (Bld) [Partial pressure] 68.4 mm[Hg] High - PINF [facility] CO2 [Moles/Vol] 31 mmol/L High 23.0 - 27.0 mmol/L [facility] HCO3 (Bld) [Moles/Vol] 28.9 mmol/L High 21.0 - 25.0 mmol/L [facility] Oxygen (Bld) [Partial pressure] 36.2 mm[Hg] Critically low [facility] pH (Bld) 7.244 [pH] Low 7.350 - 7.450 [facility] Glucose [Mass/Vol] 185 mg/dL High 70 - 100 mg/dL [facility] Glucose [Mass/Vol] 158 mg/dL High 70 - 100 mg/dL [facility] Magnesium [Mass/Vol] 2 mg/dL 1.6 - 2 .3 mg/dL [facility] Laboratory - Chemistry and C hemistry - challengeOrdered By: Audrey Blanchard on 08-20-2024 Base excess Calc (Bld) [Moles/Vol] -1 mmol/L -3.0 - 3.0 mmol/L [facility] CO2 (Bld) [Partial pressure] 71.5 mm[Hg] High - PINF [facility] CO2 [Moles/Vol] 30.1 mmol/L High 23.0 - 27.0 mmol/L [facility] HCO3 (Bld) [Moles/Vol] 27.9 mmol/L High 21.0 - 25.0 mmol/L [facility] Oxygen (Bld) [Partial pressure] 63.4 mm[Hg] Low [facility] pH (Bld) 7.209 [pH] Low 7.350 - 7.450 [facility] Laboratory - Hematology and Cell countson 08-20-2024 Hemoglobin (Bld) [Mass/Vol] 10.3 g/dL Screen only [facility] Hemoglobin (Bld) [Mass/Vol] 10.5 g/dL Screen only [facility] Hemoglobin (Bld) [Mass/Vol] 10.4 g/dL Screen only [facility] Laboratory - Hematology and Cell countsOrdered By: Audrey Blanchard on 08-20-2024 Hemoglobin (Bld) [Mass/Vol] 10.1 g/dL Screen only [facility] MAGNESIUMon 08-20-2024 Magnesium [Mass/Vol] 2.0 mg/dL Normal 1.6-2.3 [facility] Comment on above: Performed By: #### L [id number], [id number], [id number] ####[employer]: MARY SOTELO ([id number])[address] No Panel Informationon 08-20 Interpretation and review of laboratory results Abnormal [facility] Source Of Oxygen 40% Oxygen [facility] Interpretation and review of laboratory results Abnormal [facility] Interpretation and review of laboratory results Abnormal [facility] Source Of Oxygen 40% Oxygen [facility]th [facility] Interpretation and review of laboratory results Abnormal [facility] Source Of Oxygen Bi-PAP [facility] alth [facility] Interpretation and review of laboratory results Abnormal [facility] Interpretation and review of laboratory results Abnormal [facility] Interpretation and review of laboratory results Normal [facility] No Panel InformationOrdered By: Audrey Blanchard on 08-20-2024 Interpretation and review of laboratory results Abnormal [facility] Source Of Oxygen Nasal cannula [facility] PHOSPHORUSon 08-20-2024 Phosphate [Mass/Vol] 4.1 mg/dL Normal 2.5-4.5 [facility] Comment on above: Performed By: #### L [id number], [id number], [id number] ####Doughnut Dough Mixer: MARY SOTELO ([id number])[facility] ([facility])[address] [place] [address] [place] Phosphate [Moles/Vol]on 08-03 Phosphate [Mass/Vol] 4.1 mg/dL 2.5 - 4 .5 mg/dL [facility] Progress Noteon 08-20-2024 Progress Note OCCUPATIONAL THERAPY Attempted OT services, pt on hold due to pt unable to stay aroused/limited responsiveness. Will reattempt when pt is alert/able to participate. Normal [facility] Progress Note Normal [facility] Progress Note Normal [facility] Progress Note Normal [facility] Progress Note Normal [facility] BASIC METABOLIC PANELon 08-03 Anion gap [Moles/Vol] 3 mmol/L Normal 3-13 [facility] Comment on above: Performed By: #### L AB113, LAB15, [id number], [id number] ####Doughnut Dough Mixer: MARY SOTELO ([id number])[facility] ([facility])[address] [place] [address] [place] Calcium [Mass/Vol] 7.4 mg/dL Low 8.4-10.4 [facility] Comment on above: Performed By: #### L AB113, LAB15, [id number], [id number] ####Doughnut Dough Mixer: MARY SOTELO ([id number])[facility] ([facility])[address] [place] [address] [place] Chloride [Moles/Vol] 95 mmol/L Low 98-107 [facility] Comment on above: Performed By: #### L AB113, LAB15, [id number], [id number] ####D[employer]nut D[employer]er: MARY SOTELO ([id number])[facility] ([facility])[address] [place] [address] [place] CO2 [Moles/Vol] 28 mmol/L Normal 22-30 [facility] Comment on above: Performed By: #### L AB113, LAB15, [id number], [id number] ####Doughnut D[employer] Mixer: MARY SOTELO ([id number])[facility] ([facility])[address] [place] [address] Creatinine [Mass/Vol] 2.98 mg/dL High 0.52-1.04 [facility] Comment on above: Performed By: #### L AB113, LAB15, [id number], [id number] ####Doughnut Dough Mixer: MARY SOTELO ([id number])[facility] ([facility])[address] [place] [address] GLOMERULAR FILTRATION RATE ML/MIN/1.73 SQ M.PREDICTED 17.0 mL/min/1.73m*2 Low >60.0 [facility] Comment on above: Result Comment: Calc ulation based on the Chronic Kidney Disease Epidemiology Collaboration (CKD-EPI) equation refit without adjustment for race Performed By: #### L AB113, LAB15, [id number], [id number] ####Doughnut Dough Mixer: MARY SOTELO ([id number])[facility] ([facility])[address] [place] [address] [place] Glucose [Mass/Vol] 626 mg/dL Critically high 70-100 [facility] Comment on above: Performed By: #### L AB113, LAB15, [id number], [id number] ####Doughnut Dough Mixer: MARY SOTELO ([id number])[facility] ([facility])[address] [place] [address] [place] Potassium [Moles/Vol] 4.4 mmol/L Normal 3.5-5.1 [facility] Comment on above: Performed By: #### L AB113, LAB15, [id number], [id number] ####Doughnut Dough Mixer: MARY SOTELO ([id number])[facility])[address] [place] [address] [place] Sodium [Moles/Vol] 126 mmol/L Low 135-145 [facility] Comment on above: Performed By: #### L AB113, LAB15, ZOC050, [id number] ####Doughnut Dough Mixer: MARY SOTELO ([id number])[facility] ([facility])[address] [place] [address] Urea nitrogen [Mass/Vol] 28 mg/dL High - [facility] Comment on above: Performed By: #### L AB113, LAB15, [id number], [id number] ####Doughnut Dough Mixer: MARY SOTELO ([id number])[facility] ([facility])[address] [place] [address] BETA HYDROXYBUTYRATEon 08-19 BETA HYDROXYBUTYRATE 7.01 mg/dL High 0.20-2.81 [facility] Comment on above: Performed By: #### L AB113, LAB15, [id number], [id number] ####Doughnut Dough Mixer: MARY SOTELO ([id number])[facility] [place] [address] Bacteria identified Cx Nom ( Bld)on 08-19-2024 Interpretation and review of laboratory results Normal [facility] Basic metabolic 1998 panelon 08-19-2024 Anion gap [Moles/Vol] 3 mmol/L 3 - 13 mmol/L [facility] Calcium [Mass/Vol] 7.4 mg/dL Low 8.4 - 10. 4 mg/dL [facility] Chloride [Moles/Vol] 95 mmol/L Low 98 - 10 7 mmol/L [facility] CO2 [Moles/Vol] 28 mmol/L 22 - 30 mmol/L [facility] Creatinine [Mass/Vol] 2.98 mg/dL High 0.52 - 1.04 mg/dL [facility] GFR/1.73 sq M.predicted (S/P/Bld) [Vol rate/Area] 17 mL/min Low - PINF [facility] Glucose [Mass/Vol] 626 mg/dL Critically high 70 - 1 00 mg/dL [facility] Interpretation and review of laboratory results Abnormal [facility] Potassium [Moles/Vol] 4.4 mmol/L 3.5 - 5.1 mmol/L [facility] Sodium [Moles/Vol] 126 mmol/L Low 135 - 145 mmol/L [facility] Urea nitrogen [Mass/Vol] 28 mg/dL High 7 - mg/dL [facility] CALCIUM, IONIZEDon CALCIUM IONIZED 4.20 mg/dL Low 4.30-5.20 [facility] Comment on above: Performed By: #### L [id number] ####Doughnut Dough Mixer: MARY SOTELO ([id number])[facility] ([facility])[address] [place] [address] PH, IONIZED CALCIUM 7.21 Low 7.31-7.46 [facility] Comment on above: Performed By: #### L AB54 ####Doughnut Dough Mixer: MARY SOTELO ([id number])[facility] ([facility])[address] [place] [address] CBC W Auto Differential pane l (Bld)on 08-19-2024 Basophils (Bld) [#/Vol] 0 10*3/uL 0.0 - 0.2 10*3/uL [employer] Basophils/100 WBC (Bld) 0.3 % 0.0 - 2.0 % [employer] Eosinophils (Bld) [#/Vol] 0.1 10*3/uL 0.0 - 0.5 10*3/uL [facility] [employer] Eosinophils/100 WBC (Bld) 2.5 % 0.0 - 6.0 % [facility] [employer] Erythrocyte distribution width (RBC) [Ratio] 15.6 % High 11.5 - 15.0 % [facility] [employer] Hematocrit (Bld) [Volume fraction] 29.5 % Low 35.0 - 47.0 % [employer] Hemoglobin (Bld) [Mass/Vol] 9.3 g/dL Low 11.7 - 16.0 g/dL [employer] Immature granulocytes (Bld) [#/Vol] 0 10*3/uL NINF - 0.1 10*3/uL [facility] [employer] Immature granulocytes/100 WBC (Bld) 0.3 % 0.0 - 2.0 % [facility] [employer] Interpretation and review of laboratory results Abnormal [employer] Lymphocytes (Bld) [#/Vol] 0.6 10*3/uL Low 1.0 - 4.3 10*3/uL [facility] [employer] Lymphocytes/100 WBC (Bld) 14.8 % Low 15.0 - 45.0 % [employer] MCH (RBC) [Entitic mass] 29.3 pg 26.0 - 34.0 pg [facility] [employer] MCHC (RBC) [Mass/Vol] 31.5 % 30.5 - 36.0 % [facility] [employer] MCV (RBC) [Entitic vol] 93.1 fL 77.0 - 99.0 fL [facility] [employer] Monocytes (Bld) [#/Vol] 0.3 10*3/uL 0.0 - 0.9 10*3/uL [facility] Monocytes/100 WBC (Bld) 6.8 % 5.0 - 13.0 % [facility] Neutrophils (Bld) [#/Vol] 3 10*3/uL 1.8 - 7.5 10*3/uL [facility] Neutrophils/100 WBC (Bld) 75.3 % 38.0 - 82.0 % [facility] [employer] Nucleated RBC/100 WBC (Bld) [Ratio] 0 % [facility] [employer] Platelet mean volume (Bld) [Entitic vol] 10.6 fL 9.0 - 12.7 fL [facility] Platelets (Bld) [#/Vol] 114 10*3/uL Low 140 - 440 10*3/uL [facility] RBC (Bld) [#/Vol] 3.17 10*6/uL Low 3.80 - 5.2 0 10*6/uL [facility] WBC (Bld) [#/Vol] 4 10*3/uL 3.6 - 10.7 10*3/uL [facility] CBC WITH AUTO DIFFERENTIALon 08-19-2024 Basophils (Bld) [#/Vol] 0.0 10*3/uL Normal 0.0-0.2 [facility] [employer] [facility] Comment on above: Performed By: #### L [id number] ####Doughnut Dough Mixer: MARY SOTELO ([id number])[address] Basophils/100 WBC (Bld) 0.3 % Normal 0.0-2.0 [facility] [employer] [facility] Comment on above: Performed By: #### L [id number] ####Doughnut Dough Mixer: MARY SOTELO ([id number])[facility])[address] [place] [address] Eosinophils (Bld) [#/Vol] 0.1 10*3/uL Normal 0.0-0.5 [facility] Comment on above: Performed By: #### L [id number] ####D[employer] D[employer] Mixer: MARY SOTELO ([id number])[address] Eosinophils/100 WBC (Bld) 2.5 % Normal 0.0-6.0 [facility] Comment on above: Performed By: #### L [id number] ####Doughnut Dough Mixer: MARY SOTELO ([id number])[facility])[address] [place] [address] Erythrocyte distribution width (RBC) [Ratio] 15.6 % High 11.5-15.0 [facility] Comment on above: Performed By: #### L [id number] ####D[employer]nut D[employer] Mixer: MARY SOTELO ([id number])[address] Hematocrit (Bld) [Volume fraction] 29.5 % Low 35.0-47.0 [facility] Comment on above: Performed By: #### L [id number] ####Doughnut Dough Mixer: MARY SOTELO ([id number])[address] Hemoglobin (Bld) [Mass/Vol] 9.3 g/dL Low 11.7-16.0 [facility] Comment on above: Performed By: #### L [id number] ####Doughnut Dough Mixer: MARY SOTELO ([id number])[address] IMMATURE GRANS % 0.3 % Normal 0.0-2.0 [facility] Comment on above: Performed By: #### L [id number] ####Doughnut Dough Mixer: MARY SOTELO ([id number])[address] IMMATURE GRANS ABSOLUTE 0.0 10*3/uL Normal <0.1 [facility] Comment on above: Performed By: #### L [id number] ####Doughnut Dough Mixer: MARY [id number])[facility])[address] [place] [address] Lymphocytes (Bld) [#/Vol] 0.6 10*3/uL Low 1.0-4.3 [facility] Comment on above: Performed By: #### L [id number] ####Doughnut Dough Mixer: MARY SOTELO ([id number])[facility])[address] [place] [address] Lymphocytes/100 WBC (Bld) 14.8 % Low 15.0-45.0 [facility] Comment on above: Performed By: #### L [id number] ####Doughnut Dough Mixer: MARY SOTELO ([id number])[facility])[address] [place] [address] MCH (RBC) [Entitic mass] 29.3 pg Normal 26.0-34.0 [facility] Comment on above: Performed By: #### L [id number] ####Doughnut Dough Mixer: MARY SOTELO ([id number])[facility])[address] [place] [address] MCHC 31.5 % Normal 30.5-36.0 [facility] Comment on above: Performed By: #### L [id number] ####Doughnut Dough Mixer: MARY SOTELO ([id number])[facility])[address] [place] [address] MCV (RBC) [Entitic vol] 93.1 fL Normal 77.0-99.0 [facility] Comment on above: Performed By: #### L [id number] ####Doughnut Dough Mixer: MARY SOTELO ([id number])[facility])[address] [place] [address] Monocytes (Bld) [#/Vol] 0.3 10*3/uL Normal 0.0-0.9 [facility] Comment on above: Performed By: #### L [id number] ####Doughnut Dough Mixer: MARY SOTELO ([id number])[facility])[address] [place] [address] [place] Monocytes/100 WBC (Bld) 6.8 % Normal 5.0-13.0 [facility] Comment on above: Performed By: #### L [id number] ####Doughnut Dough Mixer: MARY SOTELO ([id number])[facility] ([facility])[address] [place] [address] NEUTROPHILS ABSOLUTE 3.0 10*3/uL Normal 1.8-7.5 [facility] Comment on above: Performed By: #### L [id number] ####Doughnut Dough Mixer: MARY SOTELO ([id number])[facility] ([facility])[address] [place] [address] Neutrophils/100 WBC (Bld) 75.3 % Normal 38.0-82.0 [facility] Comment on above: Performed By: #### L [id number] ####Doughnut Dough Mixer: MARY SOTELO ([id number])[facility] ([facility])[address] [place] [address] NRBC 0.0 /100 WBCs Normal 0.0-2.0 [facility] Comment on above: Performed By: #### L [id number] ####Doughnut Dough Mixer: MARY SOTELO ([id number])[facility] ([facility])[address] [place] [address] Platelet mean volume (Bld) [Entitic vol] 10.6 fL Normal 9.0-12.7 [facility] Comment on above: Performed By: #### L [id number] ####Doughnut Dough Mixer: MARY SOTELO ([id number])[facility] ([facility])[address] [place] [address] Platelets (Bld) [#/Vol] 114 10*3/uL Low 140-440 [facility] Comment on above: Performed By: #### L [id number] ####Doughnut Dough Mixer: MARY SOTELO ([id number])[facility] ([facility])[address] [place] [address] RBC (Bld) [#/Vol] 3.17 10*6/uL Low 3.80-5.20 [facility] Comment on above: Performed By: #### L [id number] ####Doughnut Dough Mixer: MARY SOTELO ([id number])[facility] ([facility])[address] [place] [address] WBC (Bld) [#/Vol] 4.0 10*3/uL Normal 3.6-10.7 [facility] Comment on above: Performed By: #### L [id number] ####Doughnut Dough Mixer: MARY SOTELO ([id number])[facility] ([facility])[address] [place] [address] Calcium.ionized [Moles/Vol]O rdered By: Yoana Boyd on 08-19-2024 Calcium.ionized (Bld) [Moles/Vol] 4.2 mg/dL Low 4.30 - 5.20 mg/dL [facility] Interpretation and review of laboratory results Abnormal [facility] PH, IONIZED CALCIUM 7.21 Low 7.31 - 7.46 [facility] GLUCOSE, RANDOMon 08-19-2024 Glucose [Mass/Vol] 653 mg/dL Critically high 70-100 [facility] Comment on above: Performed By: #### L [id number] ####Doughnut Dough Mixer: MARY SOTELO ([id number])[facility] ([facility])[address] [place] [address] Glucose (Bld) [Mass/Vol]on 1 Glucose [Mass/Vol] 653 mg/dL Critically high 70 - 1 00 mg/dL [facility] Interpretation and review of laboratory results Abnormal [facility] Laboratory - Chemistry and C hemistry - challengeon 08-19-2024 Glucose [Mass/Vol] 118 mg/dL High 70 - 100 mg/dL [facility] Glucose [Mass/Vol] 162 mg/dL High 70 - 100 mg/dL [facility] Glucose [Mass/Vol] 268 mg/dL High 70 - 100 mg/dL [facility] Glucose [Mass/Vol] 414 mg/dL High 70 - 100 mg/dL [facility] Glucose [Mass/Vol] mg/dL High 70 - 100 mg/dL [facility] Glucose [Mass/Vol] mg/dL High 70 - 100 mg/dL [facility] Glucose [Mass/Vol] mg/dL High 70 - 100 mg/dL [facility] Beta hydroxybutyrate [Mass/Vol] 7.01 mg/dL High 0.20 - 2.81 mg/dL [facility] Magnesium [Mass/Vol] 2 mg/dL 1.6 - 2 .3 mg/dL [facility] Glucose [Mass/Vol] mg/dL High 70 - 100 mg/dL [facility] Laboratory - Microbiology an d Antimicrobial susceptibilityon 08-19-2024 Bacteria identified Cx Nom (Bld) No growth at 5 days [facility] MAGNESIUMon 08-19-2024 Magnesium [Mass/Vol] 2.0 mg/dL Normal 1.6-2.3 [facility] Comment on above: Performed By: #### L AB113, LAB15, [id number], [id number] ####Doughnut Dough Mixer: MARY SOTELO ([id number])[facility] ([address] No Panel Informationon 08-19 Interpretation and review of laboratory results Abnormal [facility] Interpretation and review of laboratory results Abnormal [facility] Interpretation and review of laboratory results Abnormal [facility] Interpretation and review of laboratory results Abnormal [facility] Interpretation and review of laboratory results Abnormal [facility] Interpretation and review of laboratory results Abnormal [facility] Interpretation and review of laboratory results Abnormal [facility] Interpretation and review of laboratory results Abnormal [facility] Interpretation and review of laboratory results Normal [facility] Interpretation and review of laboratory results Abnormal [facility] Nursing Noteon 08-19-2024 Nursing Note Pt MBS for dinner wa s 162 orders for 8 scheduled H. Log and [address] Baires paged. Orders to give SSI and Hold scheduled 8 units if pt does not eat dinner. Pt did not want to eat dinner; 8 units held Normal [facility] Nursing Note Pt seemingly more confused and a little more lethargic than this morning. Med Team paged to make aware Normal [facility] Nursing Note Pt recheck MBS was 527. Dr. Bijan Jarrett paged to make aware Normal [facility] Nursing Note Pt MBS still reading HI. Med Team at bedside. Physician stated no need to draw confirmation, but to give 1 time 15 unit of R and recheck in one hour. Normal [facility] Nursing Note Dr. Bijan Jarrett paged wi th repeat glucose of 653 Normal [facility] Nursing Note Critical Care lab called with result of 626. Med Team A paged regarding. Normal [facility] PHOSPHORUSon 08-19-2024 Phosphate [Mass/Vol] 3.8 mg/dL Normal 2.5-4.5 [facility] Comment on above: Performed By: #### L AB113, LAB15, [id number], [id number] ####Doughnut Dough Mixer: MARY SOTELO ([id number])[facility])[address] [place] [address] [place] Phosphate [Moles/Vol]on 08-03 Phosphate [Mass/Vol] 3.8 mg/dL 2.5 - 4 .5 mg/dL [facility] Progress Noteon 08-19-2024 Progress Note Normal [facility] Progress Note Normal [facility] Progress Note Normal [facility] Progress Note Normal [facility] BASIC METABOLIC PANELon 08-03 Anion gap [Moles/Vol] 4 mmol/L Normal 3-13 [facility] Comment on above: Performed By: #### L AB113, [id number], LAB15 ####Doughnut Dough Mixer: MARY SOTELO ([id number])[facility] ([facility])[address] [place] [address] [place] Calcium [Mass/Vol] 7.9 mg/dL Low 8.4-10.4 [facility] Comment on above: Performed By: #### L AB113, GLN015, LAB15 ####Doughnut Dough Mixer: MARY SOTELO ([id number])[facility])[address] [place] [address] [place] Chloride [Moles/Vol] 99 mmol/L Normal 98-107 [facility] Comment on above: Performed By: #### L AB113, [id number], LAB15 ####Doughnut Dough Mixer: MARY SOTELO ([id number])[facility] [place] [address] CO2 [Moles/Vol] 27 mmol/L Normal 22-30 [facility] Comment on above: Performed By: #### L AB113, [id number], LAB15 ####Doughnut D[employer] Mixer: MARY SOTELO ([id number])[facility] ([facility])[address] [place] [address] Creatinine [Mass/Vol] 3.57 mg/dL High 0.52-1.04 [facility] Comment on above: Performed By: #### Dora AB113, [id number], LAB15 ####Doughnut Dough Mixer: MARY SOTELO ([id number])[facility])[address] [place] [address] GLOMERULAR FILTRATION RATE ML/MIN/1.73 SQ M.PREDICTED 13.7 mL/min/1.73m*2 Low >60.0 [facility] Comment on above: Result Comment: Calc ulation based on the Chronic Kidney Disease Epidemiology Collaboration (CKD-EPI) equation refit without adjustment for race Performed By: #### Dora AB113, [id number], LAB15 ####Doughnut D[employer] Mixer: MARY SOTELO ([id number])[facility] ([facility])[address] [place] [address] Glucose [Mass/Vol] 281 mg/dL High 70-100 [facility] Comment on above: Performed By: #### Dora AB113, [id number], LAB15 ####D[employer] D[employer] Mixer: MARY SOTELO ([id number])[facility] ([facility])[address] [place] [address] [place] Potassium [Moles/Vol] 3.8 mmol/L Normal 3.5-5.1 [facility] Comment on above: Performed By: #### L AB113, [id number], LAB15 ####Doughnut D[employer] Mixer: MARY SOTELO ([id number])[facility] ([facility])[address] [place] [address] [place] Sodium [Moles/Vol] 130 mmol/L Low 135-145 [facility] Comment on above: Performed By: #### L AB113, [id number], LAB15 ####D[employer] Mixer: MARY SOTELO ([id number])[facility] ([facility])[address] [place] [address] Urea nitrogen [Mass/Vol] 35 mg/dL High 7-17 [facility] Comment on above: Performed By: #### L AB113, [id number], LAB15 ####D[employer]er: MARY SOTELO ([id number])[facility] ([facility])[address] [place] [address] Basic metabolic 1998 panelon 08-18-2024 Anion gap [Moles/Vol] 4 mmol/L 3 - 13 mmol/L [facility] Calcium [Mass/Vol] 7.9 mg/dL Low 8.4 - 10. 4 mg/dL [facility] Chloride [Moles/Vol] 99 mmol/L 98 - 10 7 mmol/L [facility] CO2 [Moles/Vol] 27 mmol/L 22 - 30 mmol/L [facility] Creatinine [Mass/Vol] 3.57 mg/dL High 0.52 - 1.04 mg/dL [facility] GFR/1.73 sq M.predicted (S/P/Bld) [Vol rate/Area] 13.7 mL/min Low - PINF [facility] Glucose [Mass/Vol] 281 mg/dL High 70 - 100 mg/dL [facility] Interpretation and review of laboratory results Abnormal [facility] Potassium [Moles/Vol] 3.8 mmol/L 3.5 - 5.1 mmol/L [facility] Sodium [Moles/Vol] 130 mmol/L Low 135 - 145 mmol/L [facility] Urea nitrogen [Mass/Vol] 35 mg/dL High 7 - 17 mg/dL [facility] CALCIUM, IONIZEDon CALCIUM IONIZED 4.50 mg/dL Normal 4.30-5.20 [facility] Comment on above: Performed By: #### L AB54 ####[employer]: MARY SOTELO ([id number])[facility] ([facility])[address] [place] [address] PH, IONIZED CALCIUM 7.26 Low 7.31-7.46 [facility] Comment on above: Performed By: #### L AB54 ####[employer]: MARY SOTELO ([id number])[facility] ([address] CARECOORDon 08-18-2024 [place]ORD Normal [facility] CBC W Auto Differential pane l (Bld)on 08-18-2024 Basophils (Bld) [#/Vol] 0 10*3/uL 0.0 - 0.2 10*3/uL [facility] Basophils/100 WBC (Bld) 0.2 % 0.0 - 2.0 % [facility] Eosinophils (Bld) [#/Vol] 0.1 10*3/uL 0.0 - 0.5 10*3/uL [facility] Eosinophils/100 WBC (Bld) 2.9 % 0.0 - 6.0 % [facility] Erythrocyte distribution width (RBC) [Ratio] 15.7 % High 11.5 - 15.0 % [facility] Hematocrit (Bld) [Volume fraction] 29.1 % Low 35.0 - 47.0 % [facility] Hemoglobin (Bld) [Mass/Vol] 9.2 g/dL Low 11.7 - 16.0 g/dL [facility] Immature granulocytes (Bld) [#/Vol] 0 10*3/uL NINF - 0.1 10*3/uL [facility] Immature granulocytes/100 WBC (Bld) 0.7 % 0.0 - 2.0 % [facility] Interpretation and review of laboratory results Abnormal [facility] IPF 4 [facility] Lymphocytes (Bld) [#/Vol] 0.8 10*3/uL Low 1.0 - 4.3 10*3/uL [facility] Lymphocytes/100 WBC (Bld) 17.9 % 15.0 - 45.0 % [facility] MCH (RBC) [Entitic mass] 29.1 pg 26.0 - 34.0 pg [facility] MCHC (RBC) [Mass/Vol] 31.6 % 30.5 - 36.0 % [facility] MCV (RBC) [Entitic vol] 92.1 fL 77.0 - 99.0 fL [facility] Monocytes (Bld) [#/Vol] 0.4 10*3/uL 0.0 - 0.9 10*3/uL [facility] Monocytes/100 WBC (Bld) 7.8 % 5.0 - 13.0 % [facility] Neutrophils (Bld) [#/Vol] 3.2 10*3/uL 1.8 - 7.5 10*3/uL [facility] Neutrophils/100 WBC (Bld) 70.5 % 38.0 - 82.0 % [facility] Nucleated RBC/100 WBC (Bld) [Ratio] 0 % [facility] Platelet mean volume (Bld) [Entitic vol] 10.2 fL 9.0 - 12.7 fL [facility] Platelets (Bld) [#/Vol] 111 10*3/uL Low 140 - 440 10*3/uL [facility] RBC (Bld) [#/Vol] 3.16 10*6/uL Low 3.80 - 5.2 0 10*6/uL [facility] WBC (Bld) [#/Vol] 4.5 10*3/uL 3.6 - 10.7 10*3/uL [facility] CBC WITH AUTO DIFFERENTIALon 08-18-2024 Basophils (Bld) [#/Vol] 0.0 10*3/uL Normal 0.0-0.2 [facility] Comment on above: Performed By: #### L [id number] ####[employer]: MARY SOTELO ([id number])[facility])[address] [place] [address] Basophils/100 WBC (Bld) 0.2 % Normal 0.0-2.0 [facility] Comment on above: Performed By: #### L [id number] ####[employer]er: MARY SOTELO ([id number])[facility] ([facility])[address] [place] [address] [place] Eosinophils (Bld) [#/Vol] 0.1 10*3/uL Normal 0.0-0.5 [facility] Comment on above: Performed By: #### L [id number] ####[employer]: MARY SOTELO ([id number])[facility] SYSTEM)[address] [place] [address] [place] Eosinophils/100 WBC (Bld) 2.9 % Normal 0.0-6.0 [facility] Comment on above: Performed By: #### L [id number] ####Doughnut Dough Mixer: MARY SOTELO ([id number])[facility])[address] [place] [address] Erythrocyte distribution width (RBC) [Ratio] 15.7 % High 11.5-15.0 [facility] Comment on above: Performed By: #### L [id number] ####Doughnut Dough Mixer: MARY SOTELO ([id number])[facility])[address] [place] [address] Hematocrit (Bld) [Volume fraction] 29.1 % Low 35.0-47.0 [facility] Comment on above: Performed By: #### L [id number] ####Doughnut Dough Mixer: MARY SOTELO ([id number])[address] Hemoglobin (Bld) [Mass/Vol] 9.2 g/dL Low 11.7-16.0 [facility] Comment on above: Performed By: #### L [id number] ####Doughnut Dough Mixer: MARY SOTELO ([id number])[facility])[address] [place] [address] IMMATURE GRANS % 0.7 % Normal 0.0-2.0 [facility] Comment on above: Performed By: #### L [id number] ####Doughnut Dough Mixer: MARY SOTELO ([id number])[address] IMMATURE GRANS ABSOLUTE 0.0 10*3/uL Normal <0.1 [facility] Comment on above: Performed By: #### L [id number] ####Doughnut Dough Mixer: MARY SOTELO ([id number])[address] IPF 4 Normal [facility] Comment on above: Performed By: #### L [id number] ####Doughnut Dough Mixer: MARY SOTELO ([id number])[facility])[address] [place] [address] Lymphocytes (Bld) [#/Vol] 0.8 10*3/uL Low 1.0-4.3 [facility] Comment on above: Performed By: #### L [id number] ####Doughnut Dough Mixer: MARY SOTELO ([id number])[facility])[address] [place] [address] Lymphocytes/100 WBC (Bld) 17.9 % Normal 15.0-45.0 [facility] Comment on above: Performed By: #### L [id number] ####Doughnut Dough Mixer: MARY SOTELO ([id number])[facility])[address] [place] [address] MCH (RBC) [Entitic mass] 29.1 pg Normal 26.0-34.0 [facility] Comment on above: Performed By: #### L [id number] ####Doughnut Dough Mixer: MARY SOTELO ([id number])[facility])[address] [place] [address] MCHC 31.6 % Normal 30.5-36.0 [facility] Comment on above: Performed By: #### L [id number] ####Doughnut Dough Mixer: MARY SOTELO ([id number])[facility])[address] [place] [address] MCV (RBC) [Entitic vol] 92.1 fL Normal 77.0-99.0 [facility] Comment on above: Performed By: #### L [id number] ####Doughnut Dough Mixer: MARY SOTELO ([id number])[facility])[address] [place] [address] Monocytes (Bld) [#/Vol] 0.4 10*3/uL Normal 0.0-0.9 [facility] Comment on above: Performed By: #### L [id number] ####Doughnut Dough Mixer: MARY SOTELO ([id number])[facility])[address] [place] [address] Monocytes/100 WBC (Bld) 7.8 % Normal 5.0-13.0 [facility] Comment on above: Performed By: #### L [id number] ####Doughnut Dough Mixer: MARY SOTELO ([id number])[facility] ([facility])[address] [place] [address] NEUTROPHILS ABSOLUTE 3.2 10*3/uL Normal 1.8-7.5 [facility] Comment on above: Performed By: #### L [id number] ####Doughnut Dough Mixer: MARY SOTELO ([id number])[facility] ([facility])[address] [place] [address] Neutrophils/100 WBC (Bld) 70.5 % Normal 38.0-82.0 [facility] Comment on above: Performed By: #### L [id number] ####Doughnut Dough Mixer: MARY SOTELO ([id number])[facility] ([facility])[address] [place] [address] NRBC 0.0 /100 WBCs Normal 0.0-2.0 [facility] Comment on above: Performed By: #### L [id number] ####Doughnut Dough Mixer: MARY SOTELO ([id number])[facility] ([facility])[address] [place] [address] Platelet mean volume (Bld) [Entitic vol] 10.2 fL Normal 9.0-12.7 [facility] Comment on above: Performed By: #### L [id number] ####Doughnut Dough Mixer: MARY SOTELO ([id number])[facility] ([facility])[address] [place] [address] [place] Platelets (Bld) [#/Vol] 111 10*3/uL Low 140-440 [facility] Comment on above: Performed By: #### L [id number] ####Doughnut Dough Mixer: MARY SOTELO ([id number])[facility] ([facility])[address] [place] [address] [place] RBC (Bld) [#/Vol] 3.16 10*6/uL Low 3.80-5.20 [facility] Comment on above: Performed By: #### L [id number] ####Doughnut Dough Mixer: MARY SOTELO ([id number])[facility] ([facility])[address] [place] [address] WBC (Bld) [#/Vol] 4.5 10*3/uL Normal 3.6-10.7 [facility] Comment on above: Performed By: #### L [id number] ####Doughnut Dough Mixer: MARY SOTELO ([id number])[facility] ([facility])[address] [place] [address] Calcium.ionized [Moles/Vol]O rdered By: Elliott Macedo on 08-18-2024 Calcium.ionized (Bld) [Moles/Vol] 4.5 mg/dL 4.30 - 5.20 mg/dL [facility] Interpretation and review of laboratory results Abnormal [facility] PH, IONIZED CALCIUM 7.26 Low 7.31 - 7.46 [facility] IDNon 08-18-2024 IDN Normal [facility] Laboratory - Chemistry and C hemistry - challengeon 08-18-2024 Glucose [Mass/Vol] 297 mg/dL High 70 - 100 mg/dL [facility] Glucose [Mass/Vol] 325 mg/dL High 70 - 100 mg/dL [facility] Glucose [Mass/Vol] 181 mg/dL High 70 - 100 mg/dL [facility] Glucose [Mass/Vol] 187 mg/dL High 70 - 100 mg/dL [facility] Magnesium [Mass/Vol] 2 mg/dL 1.6 - 2 .3 mg/dL [facility] MAGNESIUMon 08-18-2024 Magnesium [Mass/Vol] 2.0 mg/dL Normal 1.6-2.3 [facility] Comment on above: Performed By: #### L [id number], [id number], LAB15 ####Doughnut Dough Mixer: MARY SOTELO ([id number])[facility] ([facility])[address] [place] [address] No Panel Informationon 08-18 Interpretation and review of laboratory results Abnormal [facility] Interpretation and review of laboratory results Abnormal [facility] Interpretation and review of laboratory results Abnormal [facility] Interpretation and review of laboratory results Abnormal [facility] Interpretation and review of laboratory results Normal [facility] Nursing Noteon 08-18-2024 Nursing Note Normal [facility] PHOSPHORUSon 08-18-2024 Phosphate [Mass/Vol] 3.4 mg/dL Normal 2.5-4.5 [facility] Comment on above: Performed By: #### L [id number], [id number], LAB15 ####Doughnut Dough Mixer: MARY SOTELO ([id number])[facility] ([facility])[address] [place] [address] [place] Phosphate [Moles/Vol]on 08-03 Phosphate [Mass/Vol] 3.4 mg/dL 2.5 - 4 .5 mg/dL [facility] Progress Noteon 08-18-2024 Progress Note Normal [facility] Progress Note Normal [facility] Progress Note Normal [facility] Progress Note Normal [facility] BASIC METABOLIC PANELon 08-03 Anion gap [Moles/Vol] 5 mmol/L Normal 3-13 [facility] Comment on above: Performed By: #### Dora SONG, [id number], LAB15 ####Doughnut Dough Mixer: MARY SOTELO ([id number])[facility] ([facility])[address] [place] [address] [place] Calcium [Mass/Vol] 7.0 mg/dL Low 8.4-10.4 [facility] Comment on above: Performed By: #### Dora SONG, [id number], LAB15 ####Doughnut Dough Mixer: MARY SOTELO ([id number])[facility])[address] [place] [address] [place] Chloride [Moles/Vol] 100 mmol/L Normal 98-107 [facility] Comment on above: Performed By: #### Dora AB103, [id number], LAB15 ####Doughnut Dough Mixer: MARY SOTELO ([id number])[facility] ([facility])[address] [place] [address] [place] CO2 [Moles/Vol] 28 mmol/L Normal 22-30 [facility] Comment on above: Performed By: #### L AB103, [id number], LAB15 ####Doughnut Dough Mixer: MARY SOTELO ([id number])[facility] [place] [address] Creatinine [Mass/Vol] 2.31 mg/dL High 0.52-1.04 [facility] Comment on above: Performed By: #### L AB103, [id number], LAB15 ####Doughnut Dough Mixer: MARY SOTELO ([id number])[facility] [place] [address] GLOMERULAR FILTRATION RATE ML/MIN/1.73 SQ M.PREDICTED 23.1 mL/min/1.73m*2 Low >60.0 [facility] Comment on above: Result Comment: Calc ulation based on the Chronic Kidney Disease Epidemiology Collaboration (CKD-EPI) equation refit without adjustment for race Performed By: #### L AB103, [id number], LAB15 ####Doughnut Dough Mixer: MARY SOTELO ([id number])[facility] [place] [address] Glucose [Mass/Vol] 152 mg/dL High 70-100 [facility] Comment on above: Performed By: #### L AB103, [id number], LAB15 ####Doughnut Dough Mixer: MARY SOTELO ([id number])[facility] ([facility])[address] [place] [address] Potassium [Moles/Vol] 3.6 mmol/L Normal 3.5-5.1 [facility] Comment on above: Performed By: #### L AB103, [id number], LAB15 ####Doughnut Dough Mixer: MARY SOTELO ([id number])[facility])[address] [place] [address] [place] Sodium [Moles/Vol] 132 mmol/L Low 135-145 [facility] Comment on above: Performed By: #### L AB103, [id number], LAB15 ####Doughnut Dough Mixer: MARY SOTELO ([id number])[facility])[address] [place] [address] Urea nitrogen [Mass/Vol] 21 mg/dL High 7-17 [facility] Comment on above: Performed By: #### L AB103, [id number], LAB15 ####Doughnut Dough Mixer: MARY SOTELO ([id number])[facility])[address] [place] [address] Bacteria identified Cx Nom ( Bld)on 08-17-2024 Interpretation and review of laboratory results Normal [facility] Basic metabolic 1998 panelon 08-17-2024 Anion gap [Moles/Vol] 5 mmol/L 3 - 13 mmol/L [facility] Calcium [Mass/Vol] 7 mg/dL Low 8.4 - 10. 4 mg/dL [facility] Chloride [Moles/Vol] 100 mmol/L 98 - 10 7 mmol/L [facility] CO2 [Moles/Vol] 28 mmol/L 22 - 30 mmol/L [facility] Creatinine [Mass/Vol] 2.31 mg/dL High 0.52 - 1.04 mg/dL [facility] GFR/1.73 sq M.predicted (S/P/Bld) [Vol rate/Area] 23.1 mL/min Low - PINF [facility] Glucose [Mass/Vol] 152 mg/dL High 70 - 100 mg/dL [facility] Interpretation and review of laboratory results Abnormal [facility] Potassium [Moles/Vol] 3.6 mmol/L 3.5 - 5.1 mmol/L [facility] Sodium [Moles/Vol] 132 mmol/L Low 135 - 145 mmol/L [facility] Urea nitrogen [Mass/Vol] 21 mg/dL High 7 - 17 mg/dL [facility] CALCIUM, IONIZEDon 4 CALCIUM IONIZED 3.80 mg/dL Low 4.30-5.20 [facility] Comment on above: Performed By: #### L [id number] ####Doughnut Dough Mixer: MARY SOTELO ([id number])[facility])[address] [place] [address] PH, IONIZED CALCIUM 7.39 Normal 7.31-7.46 [facility] Comment on above: Performed By: #### L AB54 ####Doughnut Dough Mixer: MARY SOTELO ([id number])[facility] ([address] [place] 08-17-2024 [place] Normal [facility] CBC W Auto Differential pane l (Bld)on 08-17-2024 Basophils (Bld) [#/Vol] 0 10*3/uL 0.0 - 0.2 10*3/uL [facility] Basophils/100 WBC (Bld) 0.2 % 0.0 - 2.0 % [facility] Eosinophils (Bld) [#/Vol] 0.1 10*3/uL 0.0 - 0.5 10*3/uL [facility] Eosinophils/100 WBC (Bld) 2.6 % 0.0 - 6.0 % [facility] Erythrocyte distribution width (RBC) [Ratio] 15.8 % High 11.5 - 15.0 % [facility] Hematocrit (Bld) [Volume fraction] 28.7 % Low 35.0 - 47.0 % [facility] Hemoglobin (Bld) [Mass/Vol] 9.1 g/dL Low 11.7 - 16.0 g/dL [facility] Immature granulocytes (Bld) [#/Vol] 0 10*3/uL NINF - 0.1 10*3/uL [facility] Immature granulocytes/100 WBC (Bld) 0.4 % 0.0 - 2.0 % [facility] Interpretation and review of laboratory results Abnormal [facility] IPF 4 [facility] Lymphocytes (Bld) [#/Vol] 0.7 10*3/uL Low 1.0 - 4.3 10*3/uL [facility] Lymphocytes/100 WBC (Bld) 15.7 % 15.0 - 45.0 % [facility] MCH (RBC) [Entitic mass] 29.1 pg 26.0 - 34.0 pg [facility] MCHC (RBC) [Mass/Vol] 31.7 % 30.5 - 36.0 % [facility] MCV (RBC) [Entitic vol] 91.7 fL 77.0 - 99.0 fL [facility] Monocytes (Bld) [#/Vol] 0.3 10*3/uL 0.0 - 0.9 10*3/uL [facility] Monocytes/100 WBC (Bld) 6.8 % 5.0 - 13.0 % [facility] Neutrophils (Bld) [#/Vol] 3.4 10*3/uL 1.8 - 7.5 10*3/uL [facility] Neutrophils/100 WBC (Bld) 74.3 % 38.0 - 82.0 % [facility] Nucleated RBC/100 WBC (Bld) [Ratio] 0 % [facility] Platelet mean volume (Bld) [Entitic vol] 10.7 fL 9.0 - 12.7 fL [facility] Platelets (Bld) [#/Vol] 105 10*3/uL Low 140 - 440 10*3/uL [facility] RBC (Bld) [#/Vol] 3.13 10*6/uL Low 3.80 - 5.2 0 10*6/uL [facility] WBC (Bld) [#/Vol] 4.5 10*3/uL 3.6 - 10.7 10*3/uL [facility] CBC WITH AUTO DIFFERENTIALon 08-17-2024 Basophils (Bld) [#/Vol] 0.0 10*3/uL Normal 0.0-0.2 [facility] Comment on above: Performed By: #### L [id number] ####Doughnut Dough Mixer: MARY SOTELO ([id number])[facility])[address] [place] [address] Basophils/100 WBC (Bld) 0.2 % Normal 0.0-2.0 [facility] Comment on above: Performed By: #### L [id number] ####Doughnut Dough Mixer: MARY SOTELO ([id number])[facility] ([facility])[address] [place] [address] [place] Eosinophils (Bld) [#/Vol] 0.1 10*3/uL Normal 0.0-0.5 [facility] Comment on above: Performed By: #### L [id number] ####Doughnut Dough Mixer: MARY SOTELO ([id number])[facility])[address] [place] [address] [place] Eosinophils/100 WBC (Bld) 2.6 % Normal 0.0-6.0 [facility] Comment on above: Performed By: #### L [id number] ####Doughnut Dough Mixer: MARY SOTELO ([id number])[address] Erythrocyte distribution width (RBC) [Ratio] 15.8 % High 11.5-15.0 [facility] Comment on above: Performed By: #### L [id number] ####Doughnut Dough Mixer: MARY SOTELO ([id number])[address] Hematocrit (Bld) [Volume fraction] 28.7 % Low 35.0-47.0 [facility] Comment on above: Performed By: #### L [id number] ####Doughnut Dough Mixer: MARY SOTELO ([id number])[address] Hemoglobin (Bld) [Mass/Vol] 9.1 g/dL Low 11.7-16.0 [facility] Comment on above: Performed By: #### L [id number] ####Doughnut Dough Mixer: MARY SOTELO ([id number])[address] IMMATURE GRANS % 0.4 % Normal 0.0-2.0 [facility] Comment on above: Performed By: #### L [id number] ####Doughnut Dough Mixer: MARY SOTELO ([id number])[address] IMMATURE GRANS ABSOLUTE 0.0 10*3/uL Normal <0.1 [facility] Comment on above: Performed By: #### L [id number] ####Doughnut Dough Mixer: MARY SOTELO ([id number])[address] IPF 4 Normal [facility] Comment on above: Performed By: #### L [id number] ####Doughnut Dough Mixer: MARY [id number])[address] [place] [address] [place] Lymphocytes (Bld) [#/Vol] 0.7 10*3/uL Low 1.0-4.3 [facility] Comment on above: Performed By: #### L [id number] ####Doughnut Dough Mixer: MARY OSTELO ([id number])[facility])[address] [place] [address] Lymphocytes/100 WBC (Bld) 15.7 % Normal 15.0-45.0 [facility] Comment on above: Performed By: #### L [id number] ####Doughnut Dough Mixer: MARY SOTELO ([id number])[facility])[address] [place] [address] MCH (RBC) [Entitic mass] 29.1 pg Normal 26.0-34.0 [facility] Comment on above: Performed By: #### L [id number] ####Doughnut Dough Mixer: MARY SOTELO ([id number])[facility])[address] [place] [address] MCHC 31.7 % Normal 30.5-36.0 [facility] Comment on above: Performed By: #### L [id number] ####Doughnut Dough Mixer: MARY SOTELO ([id number])[facility])[address] [place] [address] MCV (RBC) [Entitic vol] 91.7 fL Normal 77.0-99.0 [facility] Comment on above: Performed By: #### L [id number] ####Doughnut Dough Mixer: MARY SOTELO ([id number])[facility])[address] [place] [address] Monocytes (Bld) [#/Vol] 0.3 10*3/uL Normal 0.0-0.9 [facility] Comment on above: Performed By: #### L [id number] ####Doughnut Dough Mixer: MARY SOTELO ([id number])[facility])[address] [place] [address] Monocytes/100 WBC (Bld) 6.8 % Normal 5.0-13.0 [facility] Comment on above: Performed By: #### L [id number] ####Doughnut Dough Mixer: MARY SOTELO ([id number])[facility] ([facility])[address] [place] [address] NEUTROPHILS ABSOLUTE 3.4 10*3/uL Normal 1.8-7.5 [facility] Comment on above: Performed By: #### L [id number] ####Doughnut Dough Mixer: MARY SOTELO ([id number])[facility] ([facility])[address] [place] [address] Neutrophils/100 WBC (Bld) 74.3 % Normal 38.0-82.0 [facility] Comment on above: Performed By: #### L [id number] ####Doughnut Dough Mixer: MARY SOTELO ([id number])[facility] ([facility])[address] [place] [address] NRBC 0.0 /100 WBCs Normal 0.0-2.0 [facility] Comment on above: Performed By: #### L [id number] ####Doughnut Dough Mixer: MARY SOTELO ([id number])[facility] ([facility])[address] [place] [address] Platelet mean volume (Bld) [Entitic vol] 10.7 fL Normal 9.0-12.7 [facility] Comment on above: Performed By: #### L [id number] ####Doughnut Dough Mixer: MARY SOTELO ([id number])[facility] ([facility])[address] [place] [address] Platelets (Bld) [#/Vol] 105 10*3/uL Low 140-440 [facility] Comment on above: Performed By: #### L [id number] ####Doughnut Dough Mixer: MARY SOTELO ([id number])[facility] ([facility])[address] [place] [address] RBC (Bld) [#/Vol] 3.13 10*6/uL Low 3.80-5.20 [facility] Comment on above: Performed By: #### L [id number] ####Doughnut D[employer] Mixer: MARY SOTELO ([id number])[facility] ([facility])[address] [place] [address] WBC (Bld) [#/Vol] 4.5 10*3/uL Normal 3.6-10.7 [facility] Comment on above: Performed By: #### L [id number] ####Doughnut D[employer] Mixer: MARY SOTELO ([id number])[facility] ([facility])[address] [place] [address] Calcium.ionized [Moles/Vol]o n 08-17-2024 Calcium.ionized (Bld) [Moles/Vol] 3.8 mg/dL Low 4.30 - 5.20 mg/dL [facility] Interpretation and review of laboratory results Abnormal [facility] PH, IONIZED CALCIUM 7.39 7.31 - 7.46 [facility] IDNon 08-17-2024 IDN Normal [facility] Laboratory - Chemistry and C hemistry - challengeon 08-17-2024 Glucose [Mass/Vol] 178 mg/dL High 70 - 100 mg/dL [facility] Glucose [Mass/Vol] 112 mg/dL High 70 - 100 mg/dL [facility] Glucose [Mass/Vol] 213 mg/dL High 70 - 100 mg/dL [facility] Glucose [Mass/Vol] 286 mg/dL High 70 - 100 mg/dL [facility] Magnesium [Mass/Vol] 2 mg/dL 1.6 - 2 .3 mg/dL [facility] Laboratory - Microbiology an d Antimicrobial susceptibilityon 08-17-2024 Bacteria identified Cx Nom (Bld) No growth at 5 days [facility] MAGNESIUMon 08-17-2024 Magnesium [Mass/Vol] 2.0 mg/dL Normal 1.6-2.3 [facility] Comment on above: Performed By: #### L AB103, [id number], LAB15 ####D[employer]nut D[employer] Mixer: MARY SOTELO ([id number])[facility] ([facility])[address] [place] [address] No Panel Informationon 08-17 Interpretation and review of laboratory results Abnormal [facility] Interpretation and review of laboratory results Abnormal [facility] Interpretation and review of laboratory results Abnormal [facility] Interpretation and review of laboratory results Abnormal [facility] Interpretation and review of laboratory results Normal [facility] PHOSPHORUSon 08-17-2024 Phosphate [Mass/Vol] 2.8 mg/dL Normal 2.5-4.5 [facility] Comment on above: Performed By: #### L AB103, [id number], LAB15 ####D[employer]nut D[employer] Mixer: MARY SOTELO ([id number])[facility] ([facility])[address] [place] [address] [place] Phosphate [Moles/Vol]on 08-03 Phosphate [Mass/Vol] 2.8 mg/dL 2.5 - 4 .5 mg/dL [facility] Progress Noteon 08-17-2024 Progress Note Normal [facility] Progress Note Normal [facility] Progress Note Normal [facility] Progress Note Normal [facility] BASIC METABOLIC PANELon 08-03 Anion gap [Moles/Vol] 6 mmol/L Normal 3-13 [facility] Comment on above: Performed By: #### L AB103, [id number], LAB15 ####Doughnut Dough Mixer: MARY SOTELO ([id number])[facility] ([facility])[address] [place] [address] [place] Calcium [Mass/Vol] 7.2 mg/dL Low 8.4-10.4 [facility] Comment on above: Performed By: #### L AB103, [id number], LAB15 ####Doughnut D[employer] Mixer: MARY SOTELO ([id number])[facility] ([facility])[address] [place] [address] [place] Chloride [Moles/Vol] 98 mmol/L Normal 98-107 [facility] Comment on above: Performed By: #### L AB103, [id number], LAB15 ####Doughnut Dough Mixer: MARY SOTELO ([id number])[facility] ([facility])[address] [place] [id number] [place] CO2 [Moles/Vol] 27 mmol/L Normal 22-30 [facility] Comment on above: Performed By: #### L AB103, [id number], LAB15 ####Doughnut Dough Mixer: MARY SOTELO ([id number])[facility])[address] [place] [address] Creatinine [Mass/Vol] 3.90 mg/dL High 0.52-1.04 [facility] Comment on above: Performed By: #### L AB103, [id number], LAB15 ####Doughnut Dough Mixer: MARY SOTELO ([id number])[facility])[address] [place] [address] GLOMERULAR FILTRATION RATE ML/MIN/1.73 SQ M.PREDICTED 12.3 mL/min/1.73m*2 Low >60.0 [facility] Comment on above: Result Comment: Calc ulation based on the Chronic Kidney Disease Epidemiology Collaboration (CKD-EPI) equation refit without adjustment for race Performed By: #### L AB103, [id number], LAB15 ####Doughnut Dough Mixer: MARY SOTELO ([id number])[facility])[address] [place] [address] Glucose [Mass/Vol] 362 mg/dL High 70-100 [facility] Comment on above: Performed By: #### L AB103, [id number], LAB15 ####Doughnut Dough Mixer: MARY SOTELO ([id number])[facility])[address] [place] [address] Potassium [Moles/Vol] 4.1 mmol/L Normal 3.5-5.1 [facility] Comment on above: Performed By: #### L AB103, [id number], LAB15 ####Doughnut Dough Mixer: MARY SOTELO ([id number])[facility])[address] [place] [address] [place] Sodium [Moles/Vol] 131 mmol/L Low 135-145 [facility] Comment on above: Performed By: #### L AB103, [id number], LAB15 ####Doughnut Dough Mixer: MARY SOTELO ([id number])[facility])[address] [place] [address] [place] Urea nitrogen [Mass/Vol] 38 mg/dL High 7-17 [facility] Comment on above: Performed By: #### L AB103, [id number], LAB15 ####Doughnut Dough Mixer: MARY SOTELO ([id number])[facility] ([facility])[address] [place] [address] Bacteria identified Cx Nom ( U)Ordered By: Matilde Ronquillo on 08-16-2024 Interpretation and review of laboratory results Abnormal [facility] Basic metabolic 1998 panelon 08-16-2024 Anion gap [Moles/Vol] 6 mmol/L 3 - 13 mmol/L [facility] Calcium [Mass/Vol] 7.2 mg/dL Low 8.4 - 10. 4 mg/dL [facility] Chloride [Moles/Vol] 98 mmol/L 98 - 10 7 mmol/L [facility] CO2 [Moles/Vol] 27 mmol/L 22 - 30 mmol/L [facility] Creatinine [Mass/Vol] 3.9 mg/dL High 0.52 - 1.04 mg/dL [facility] GFR/1.73 sq M.predicted (S/P/Bld) [Vol rate/Area] 12.3 mL/min Low - PINF [facility] Glucose [Mass/Vol] 362 mg/dL High 70 - 100 mg/dL [facility] Interpretation and review of laboratory results Abnormal [facility] Potassium [Moles/Vol] 4.1 mmol/L 3.5 - 5.1 mmol/L [facility] Sodium [Moles/Vol] 131 mmol/L Low 135 - 145 mmol/L [facility] Urea nitrogen [Mass/Vol] 38 mg/dL High 7 - 17 mg/dL [facility] CALCIUM, IONIZEDon 4 CALCIUM IONIZED 4.20 mg/dL Low 4.30-5.20 [facility] Comment on above: Performed By: #### L [id number] ####Doughnut Dough Mixer: MARY SOTELO ([id number])[facility] [place] [address] PH, IONIZED CALCIUM 7.16 Low 7.31-7.46 [facility] Comment on above: Performed By: #### L AB54 ####Doughnut Dough Mixer: MARY SOTELO ([id number])[facility] ([facility] [place] [address] [place] 08-16-2024 [facility] Normal [facility] CBC W Auto Differential pane l (Bld)on 08-16-2024 Basophils (Bld) [#/Vol] 0 10*3/uL 0.0 - 0.2 10*3/uL [facility] Basophils/100 WBC (Bld) 0.2 % 0.0 - 2.0 % [facility] Eosinophils (Bld) [#/Vol] 0 10*3/uL 0.0 - 0.5 10*3/uL [facility] Eosinophils/100 WBC (Bld) 0.4 % 0.0 - 6.0 % [facility] Erythrocyte distribution width (RBC) [Ratio] 15.8 % High 11.5 - 15.0 % [facility] Hematocrit (Bld) [Volume fraction] 30 % Low 35.0 - 47.0 % [facility] Hemoglobin (Bld) [Mass/Vol] 9.7 g/dL Low 11.7 - 16.0 g/dL [facility] Immature granulocytes (Bld) [#/Vol] 0 10*3/uL NINF - 0.1 10*3/uL [facility] Immature granulocytes/100 WBC (Bld) 0.6 % 0.0 - 2.0 % [facility] Interpretation and review of laboratory results Abnormal [facility] Lymphocytes (Bld) [#/Vol] 0.5 10*3/uL Low 1.0 - 4.3 10*3/uL [facility] Lymphocytes/100 WBC (Bld) 10.1 % Low 15.0 - 45.0 % [facility] MCH (RBC) [Entitic mass] 29.6 pg 26.0 - 34.0 pg [facility] MCHC (RBC) [Mass/Vol] 32.3 % 30.5 - 36.0 % [facility] MCV (RBC) [Entitic vol] 91.5 fL 77.0 - 99.0 fL [facility] Monocytes (Bld) [#/Vol] 0.3 10*3/uL 0.0 - 0.9 10*3/uL [facility] Monocytes/100 WBC (Bld) 6.9 % 5.0 - 13.0 % [facility] Neutrophils (Bld) [#/Vol] 3.9 10*3/uL 1.8 - 7.5 10*3/uL [facility] Neutrophils/100 WBC (Bld) 81.8 % 38.0 - 82.0 % [facility] Nucleated RBC/100 WBC (Bld) [Ratio] 0 % [facility] Platelet mean volume (Bld) [Entitic vol] 10.2 fL 9.0 - 12.7 fL [facility] Platelets (Bld) [#/Vol] 104 10*3/uL Low 140 - 440 10*3/uL [facility] RBC (Bld) [#/Vol] 3.28 10*6/uL Low 3.80 - 5.2 0 10*6/uL [facility] WBC (Bld) [#/Vol] 4.8 10*3/uL 3.6 - 10.7 10*3/uL [facility] CBC WITH AUTO DIFFERENTIALon 08-16-2024 Basophils (Bld) [#/Vol] 0.0 10*3/uL Normal 0.0-0.2 [facility] Comment on above: Performed By: #### L [id number] ####Doughnut Dough Mixer: MARY SOTELO ([id number])[address] Basophils/100 WBC (Bld) 0.2 % Normal 0.0-2.0 [facility] Comment on above: Performed By: #### L [id number] ####Doughnut Dough Mixer: MARY SOTELO ([id number])[facility])[address] [place] [address] Eosinophils (Bld) [#/Vol] 0.0 10*3/uL Normal 0.0-0.5 [facility] Comment on above: Performed By: #### L [id number] ####Doughnut Dough Mixer: MARY SOTELO ([id number])[facility])[address] [place] [address] [place] Eosinophils/100 WBC (Bld) 0.4 % Normal 0.0-6.0 [facility] Comment on above: Performed By: #### L [id number] ####Doughnut Dough Mixer: MARY SOTELO ([id number])[facility])[address] [place] [address] Erythrocyte distribution width (RBC) [Ratio] 15.8 % High 11.5-15.0 [facility] Comment on above: Performed By: #### L [id number] ####Doughnut Dough Mixer: MARY SOTELO ([id number])[facility])[address] [place] [address] Hematocrit (Bld) [Volume fraction] 30.0 % Low 35.0-47.0 [facility] Comment on above: Performed By: #### L [id number] ####Doughnut Dough Mixer: MARY SOTELO ([id number])[address] Hemoglobin (Bld) [Mass/Vol] 9.7 g/dL Low 11.7-16.0 [facility] Comment on above: Performed By: #### L [id number] ####Doughnut Dough Mixer: MARY SOTELO ([id number])[facility])[address] [place] [address] IMMATURE GRANS % 0.6 % Normal 0.0-2.0 [facility] Comment on above: Performed By: #### L [id number] ####Doughnut Dough Mixer: MARY SOTELO ([id number])[facility])[address] [place] [address] IMMATURE GRANS ABSOLUTE 0.0 10*3/uL Normal <0.1 [facility] Comment on above: Performed By: #### L [id number] ####Doughnut Dough Mixer: MARY SOTELO ([id number])[facility])[address] [place] [address] Lymphocytes (Bld) [#/Vol] 0.5 10*3/uL Low 1.0-4.3 [facility] Comment on above: Performed By: #### L [id number] ####Doughnut Dough Mixer: MARY SOTELO ([id number])[facility])[address] [place] [address] Lymphocytes/100 WBC (Bld) 10.1 % Low 15.0-45.0 [facility] Comment on above: Performed By: #### L [id number] ####Doughnut Dough Mixer: MARY SOTELO ([id number])[facility])[address] [place] [address] MCH (RBC) [Entitic mass] 29.6 pg Normal 26.0-34.0 [facility] Comment on above: Performed By: #### L [id number] ####Doughnut Dough Mixer: MARY SOTELO ([id number])[facility])[address] [place] [address] MCHC 32.3 % Normal 30.5-36.0 [facility] Comment on above: Performed By: #### L [id number] ####Doughnut Dough Mixer: MARY SOTELO ([id number])[facility])[address] [place] [address] MCV (RBC) [Entitic vol] 91.5 fL Normal 77.0-99.0 [facility] Comment on above: Performed By: #### L [id number] ####Doughnut Dough Mixer: MARY SOTELO ([id number])[facility])[address] [place] [address] Monocytes (Bld) [#/Vol] 0.3 10*3/uL Normal 0.0-0.9 [facility] Comment on above: Performed By: #### L [id number] ####Doughnut Dough Mixer: MARY SOTELO ([id number])[facility])[address] [place] [address] Monocytes/100 WBC (Bld) 6.9 % Normal 5.0-13.0 [facility] Comment on above: Performed By: #### L [id number] ####Doughnut Dough Mixer: MARY SOTELO ([id number])[facility])[address] [place] [address] NEUTROPHILS ABSOLUTE 3.9 10*3/uL Normal 1.8-7.5 [facility] Comment on above: Performed By: #### L [id number] ####Doughnut Dough Mixer: MARY SOTELO ([id number])[facility])[address] [place] [address] Neutrophils/100 WBC (Bld) 81.8 % Normal 38.0-82.0 [facility] Comment on above: Performed By: #### L [id number] ####Doughnut Dough Mixer: MARY SOTELO ([id number])[facility] ([facility])[address] [place] [address] NRBC 0.0 /100 WBCs Normal 0.0-2.0 [facility] Comment on above: Performed By: #### L [id number] ####Doughnut Dough Mixer: MARY SOTELO ([id number])[facility])[address] [place] [address] Platelet mean volume (Bld) [Entitic vol] 10.2 fL Normal 9.0-12.7 [facility] Comment on above: Performed By: #### L [id number] ####Doughnut Dough Mixer: MARY SOTELO ([id number])[facility] ([facility])[address] [place] [address] Platelets (Bld) [#/Vol] 104 10*3/uL Low 140-440 [facility] Comment on above: Performed By: #### L [id number] ####Doughnut Dough Mixer: MARY SOTELO ([id number])[facility] ([facility])[address] [place] [address] RBC (Bld) [#/Vol] 3.28 10*6/uL Low 3.80-5.20 [facility] Comment on above: Performed By: #### L [id number] ####Doughnut Dough Mixer: MARY SOTELO ([id number])[facility])[address] [place] [address] WBC (Bld) [#/Vol] 4.8 10*3/uL Normal 3.6-10.7 [facility] Comment on above: Performed By: #### L [id number] ####Doughnut Dough Mixer: MARY SOTELO ([id number])[facility])[address] [place] [address] Calcium.ionized [Moles/Vol]o n 08-16-2024 Calcium.ionized (Bld) [Moles/Vol] 4.2 mg/dL Low 4.30 - 5.20 mg/dL [facility] Interpretation and review of laboratory results Abnormal [facility] PH, IONIZED CALCIUM 7.16 Low 7.31 - 7.46 [facility] IDNon 08-16-2024 IDN Normal [facility] Laboratory - Chemistry and C hemistry - challengeon 08-16-2024 Glucose [Mass/Vol] 174 mg/dL High 70 - 100 mg/dL [facility] Glucose [Mass/Vol] 163 mg/dL High 70 - 100 mg/dL [facility] Glucose [Mass/Vol] 350 mg/dL High 70 - 100 mg/dL [facility] Glucose [Mass/Vol] 405 mg/dL High 70 - 100 mg/dL [facility] Magnesium [Mass/Vol] 2.2 mg/dL 1.6 - 2 .3 mg/dL [facility] Laboratory - Microbiology an d Antimicrobial susceptibilityOrdered By: Matilde Ronquillo on 08-16-2024 Bacteria identified Cx Nom (U) >100,000 CFU/mL Abbi albicans Abnormal [facility] MAGNESIUMon 08-16-2024 Magnesium [Mass/Vol] 2.2 mg/dL Normal 1.6-2.3 [facility] Comment on above: Performed By: #### L AB103, [id number], LAB15 ####Doughnut Dough Mixer: MARY SOTELO ([id number])[facility] [place] [address] No Panel Informationon 08-16 Interpretation and review of laboratory results Abnormal [facility] Interpretation and review of laboratory results Abnormal [facility] Interpretation and review of laboratory results Abnormal [facility] Interpretation and review of laboratory results Abnormal [facility] Interpretation and review of laboratory results Normal [facility] Nursing Noteon 08-16-2024 Nursing Note Normal [facility] PHOSPHORUSon 08-16-2024 Phosphate [Mass/Vol] 4.5 mg/dL Normal 2.5-4.5 [facility] Comment on above: Performed By: #### L AB103, [id number], LAB15 ####Doughnut Dough Mixer: MARY SOTELO ([id number])[facility] ([facility] [place] [address] [place] Phosphate [Moles/Vol]on 08-03 Phosphate [Mass/Vol] 4.5 mg/dL 2.5 - 4 .5 mg/dL [facility] Progress Noteon 08-16-2024 Progress Note Normal [facility] Progress Note Normal [facility] Progress Note Normal [facility] Progress [facility] BASIC METABOLIC PANELon 08-03 Anion gap [Moles/Vol] 8 mmol/L Normal 3-13 [facility] Comment on above: Performed By: #### Dora ABGabbie, [id number], LAB15 ####Doughnut Dough Mixer: MARY SOTELO ([id number])[facility] [place] [address] [place] Calcium [Mass/Vol] 7.1 mg/dL Low 8.4-10.4 [facility] Comment on above: Performed By: #### L AB113, [id number], LAB15 ####Doughnut Dough Mixer: MARY SOTELO ([id number])[facility] ([facility] [place] [address] [place] Chloride [Moles/Vol] 100 mmol/L Normal 98-107 [facility] Comment on above: Performed By: #### L AB113, [id number], LAB15 ####Doughnut Dough Mixer: MARY SOTELO ([id number])[facility] ([facility])[address] [place] [address] [place] CO2 [Moles/Vol] 22 mmol/L Normal 22-30 [facility] Comment on above: Performed By: #### L AB113, [id number], LAB15 ####Doughnut Dough Mixer: MARY SOTELO ([id number])[facility] ([facility])[address] [place] [address] Creatinine [Mass/Vol] 2.97 mg/dL High 0.52-1.04 [facility] Comment on above: Performed By: #### L AB113, [id number], LAB15 ####Doughnut Dough Mixer: MARY SOTELO ([id number])[facility] ([facility])[address] [place] [address] GLOMERULAR FILTRATION RATE ML/MIN/1.73 SQ M.PREDICTED 17.1 mL/min/1.73m*2 Low >60.0 [facility] Comment on above: Result Comment: Calc ulation based on the Chronic Kidney Disease Epidemiology Collaboration (CKD-EPI) equation refit without adjustment for race Performed By: #### L AB113, [id number], LAB15 ####Doughnut Dough Mixer: MARY SOTELO ([id number])[facility] ([facility])[address] [place] [address] Glucose [Mass/Vol] 270 mg/dL High 70-100 [facility] Comment on above: Performed By: #### L AB113, [id number], LAB15 ####Doughnut Dough Mixer: MARY SOTELO ([id number])[facility] ([facility])[address] [place] [address] Potassium [Moles/Vol] 3.9 mmol/L Normal 3.5-5.1 [facility] Comment on above: Performed By: #### L AB113, [id number], LAB15 ####Doughnut Dough Mixer: MARY SOTELO ([id number])[facility] ([facility])[address] [place] [address] [place] Sodium [Moles/Vol] 130 mmol/L Low 135-145 [facility] Comment on above: Performed By: #### L AB113, [id number], LAB15 ####Doughnut Dough Mixer: MARY SOTELO ([id number])[facility])[address] [place] [address] [place] Urea nitrogen [Mass/Vol] 27 mg/dL High 7-17 [facility] Comment on above: Performed By: #### L AB113, [id number], LAB15 ####Doughnut Dough Mixer: MARY SOTELO ([id number])[facility] ([facility])[address] [place] [address] Bacteria identified Cx Nom ( Bld)Ordered By: Kaitlyn Corona on 08-15-2024 Interpretation and review of laboratory results Abnormal [facility] Basic metabolic 1998 panelOr dered By: Deirdre Maciel on 08-15-2024 Anion gap [Moles/Vol] 8 mmol/L 3 - 13 mmol/L [facility] Calcium [Mass/Vol] 7.1 mg/dL Low 8.4 - 10. 4 mg/dL [facility] Chloride [Moles/Vol] 100 mmol/L 98 - 10 7 mmol/L [facility] CO2 [Moles/Vol] 22 mmol/L 22 - 30 mmol/L [facility] Creatinine [Mass/Vol] 2.97 mg/dL High 0.52 - 1.04 mg/dL [facility] GFR/1.73 sq M.predicted (S/P/Bld) [Vol rate/Area] 17.1 mL/min Low - PINF [facility] Glucose [Mass/Vol] 270 mg/dL High 70 - 100 mg/dL [facility] Interpretation and review of laboratory results Abnormal [facility] Potassium [Moles/Vol] 3.9 mmol/L 3.5 - 5.1 mmol/L [facility] Sodium [Moles/Vol] 130 mmol/L Low 135 - 145 mmol/L [facility] Urea nitrogen [Mass/Vol] 27 mg/dL High 7 - 17 mg/dL [facility] CALCIUM, IONIZEDon 4 CALCIUM IONIZED 3.90 mg/dL Low 4.30-5.20 [facility] Comment on above: Performed By: #### L AB54 ####Doughnut Dough Mixer: MARY SOTELO ([id number])[facility] ([facility] [place] [address] PH, IONIZED CALCIUM 7.29 Low 7.31-7.46 [facility] Comment on above: Performed By: #### L AB54 ####Doughnut Dough Mixer: MARY SOTELO ([id number])[facility] ([facility])[address] [place] [address] [place] CBC W Auto Differential pane l [...] (Bld) 0.8 % 0.0 - 2.0 % [facility] Interpretation and review of laboratory results Abnormal [facility] IPF 4 [facility] Lymphocytes [...] (Bld) 78.4 % 38.0 - 82.0 % [facility] Nucleated RBC/100 WBC (Bld) [Ratio] 0 % [facility] Platelet mean volume (Bld) [Entitic vol] 10.1 fL 9.0 - 12.7 fL [facility] Platelets (Bld) [#/Vol] 90 10*3/uL Low 140 - 440 10*3/uL [facility] RBC (Bld) [#/Vol] 3.28 10*6/uL Low 3.80 - 5.2 0 10*6/uL [facility] WBC (Bld) [#/Vol] 5 10*3/uL 3.6 - 10.7 10*3/uL [facility] CBC WITH AUTO DIFFERENTIALon 08-15-2024 Basophils (Bld) [#/Vol] 0.0 10*3/uL Normal 0.0-0.2 [facility] Comment on above: Performed By: #### L [id number] ####Doughnut Dough Mixer: MARY SOTELO ([id number])[facility])[address] [place] [address] Basophils/100 WBC (Bld) 0.2 % Normal 0.0-2.0 [facility] Comment on above: Performed By: #### L [id number] ####Doughnut Dough Mixer: MARY SOTELO ([id number])[facility])[address] [place] [address] Eosinophils (Bld) [#/Vol] 0.0 10*3/uL Normal 0.0-0.5 [facility] Comment on above: Performed By: #### L [id number] ####Doughnut Dough Mixer: MARY SOTELO ([id number])[facility])[address] [place] [address] Eosinophils/100 WBC (Bld) 0.6 % Normal 0.0-6.0 [facility] Comment on above: Performed By: #### L [id number] ####Doughnut Dough Mixer: MARY SOTELO ([id number])[facility])[address] [place] [address] Erythrocyte distribution width (RBC) [Ratio] 15.9 % High 11.5-15.0 [facility] Comment on above: Performed By: #### L [id number] ####Doughnut D[employer] Mixer: MARY SOTELO ([id number])[facility])[address] [place] [address] Hematocrit (Bld) [Volume fraction] 30.3 % Low 35.0-47.0 [facility] Comment on above: Performed By: #### L [id number] ####D[employer]nut D[employer] Mixer: MARY SOTELO ([id number])[address] Hemoglobin (Bld) [Mass/Vol] 9.5 g/dL Low 11.7-16.0 [facility] Comment on above: Performed By: #### L [id number] ####D[employer] D[employer]er: MARY SOTELO ([id number])[address] IMMATURE GRANS % 0.8 % Normal 0.0-2.0 [facility] Comment on above: Performed By: #### L [id number] ####D[employer] D[employer] Mixer: MARY SOTELO ([id number])[address] IMMATURE GRANS ABSOLUTE 0.0 10*3/uL Normal <0.1 [facility] Comment on above: Performed By: #### L [id number] ####D[employer]nut D[employer] Mixer: MARY SOTELO ([id number])[address] IPF 4 Normal [facility] Comment on above: Performed By: #### L [id number] ####D[employer]er: MARY SOTELO ([id number])[address] Lymphocytes (Bld) [#/Vol] 0.6 10*3/uL Low 1.0-4.3 [facility] Comment on above: Performed By: #### L [id number] ####D[employer]nut D[employer] Mixer: MARY SOTELO ([id number])[facility] ([facility])[address] [place] [address] Lymphocytes/100 WBC (Bld) 12.7 % Low 15.0-45.0 [facility] Comment on above: Performed By: #### L [id number] ####Doughnut D[employer] Mixer: MARY SOTELO ([id number])[facility])[address] [place] [address] MCH (RBC) [Entitic mass] 29.0 pg Normal 26.0-34.0 [facility] Comment on above: Performed By: #### L [id number] ####Doughnut Dough Mixer: MRAY SOTELO ([id number])[facility])[address] [place] [address] MCHC 31.4 % Normal 30.5-36.0 [facility] Comment on above: Performed By: #### L [id number] ####D[employer]nut D[employer] Mixer: MARY SOTELO ([id number])[facility] ([facility])[address] [place] [address] MCV (RBC) [Entitic vol] 92.4 fL Normal 77.0-99.0 [facility] Comment on above: Performed By: #### L [id number] ####D[employer]nut D[employer] Mixer: MARY SOTELO ([id number])[facility])[address] [place] [address] Monocytes (Bld) [#/Vol] 0.4 10*3/uL Normal 0.0-0.9 [facility] Comment on above: Performed By: #### L [id number] ####D[employer]nut D[employer] Mixer: MARY SOTELO ([id number])[facility])[address] [place] [address] Monocytes/100 WBC (Bld) 7.3 % Normal 5.0-13.0 [facility] Comment on above: Performed By: #### L [id number] ####Doughnut Dough Mixer: MARY SOTELO ([id number])[facility])[address] [place] [address] NEUTROPHILS ABSOLUTE 3.9 10*3/uL Normal 1.8-7.5 [facility] Comment on above: Performed By: #### L [id number] ####Doughnut Dough Mixer: MARY SOTELO ([id number])[facility] ([facility])[address] [place] [address] Neutrophils/100 WBC (Bld) 78.4 % Normal 38.0-82.0 [facility] Comment on above: Performed By: #### L [id number] ####Doughnut Dough Mixer: MARY SOTELO ([id number])[facility] ([facility])[address] [place] [address] NRBC 0.0 /100 WBCs Normal 0.0-2.0 [facility] Comment on above: Performed By: #### L [id number] ####Doughnut Dough Mixer: MARY SOTELO ([id number])[facility] ([facility])[address] [place] [address] Platelet mean volume (Bld) [Entitic vol] 10.1 fL Normal 9.0-12.7 [facility] Comment on above: Performed By: #### L [id number] ####Doughnut Dough Mixer: MARY SOTELO ([id number])[facility] ([facility])[address] [place] [address] Platelets (Bld) [#/Vol] 90 10*3/uL Low 140-440 [facility] Comment on above: Performed By: #### L [id number] ####Doughnut Dough Mixer: MARY SOTELO ([id number])[facility] ([facility])[address] [place] [address] [place] RBC (Bld) [#/Vol] 3.28 10*6/uL Low 3.80-5.20 [facility] Comment on above: Performed By: #### L [id number] ####Doughnut Dough Mixer: MARY SOTELO ([id number])[facility] [facility] [place] [address] [place] WBC (Bld) [#/Vol] 5.0 10*3/uL Normal 3.6-10.7 [facility] Comment on above: Performed By: #### L [id number] ####Doughnut Dough Mixer: MARY SOTELO ([id number])[facility] ([facility])[address] [place] [address] Calcium.ionized [Moles/Vol]O rdered By: Nicole Lakhani on 08-15-2024 Calcium.ionized (Bld) [Moles/Vol] 3.9 mg/dL Low 4.30 - 5.20 mg/dL [facility] Interpretation and review of laboratory results Abnormal [facility] PH, IONIZED CALCIUM 7.29 Low 7.31 - 7.46 [facility] IDNon 08-15-2024 IDN Normal [facility] Laboratory - Chemistry and C hemistry - challengeon 08-15-2024 Glucose [Mass/Vol] 344 mg/dL High 70 - 100 mg/dL [facility] Glucose [Mass/Vol] 368 mg/dL High 70 - 100 mg/dL [facility] Glucose [Mass/Vol] 340 mg/dL High 70 - 100 mg/dL [facility] Glucose [Mass/Vol] 302 mg/dL High 70 - 100 mg/dL [facility] Magnesium [Mass/Vol] 2.1 mg/dL 1.6 - 2 .3 mg/dL [facility] Laboratory - Microbiology an d Antimicrobial susceptibilityOrdered By: Kaitlyn Corona on 08-15-2024 Bacteria identified Cx Nom (Bld) Staphylococcus epidermidis Critically abnormal [facility] Laboratory - Miscellaneous t estson 08-15-2024 Service comment (Unsp spec) [Interp] 0.052 [facility] Laboratory - Serology - non- microon 08-15-2024 Heparin induced platelet Ab Ql (S) Negative Negative [facility] MAGNESIUMon 08-15-2024 Magnesium [Mass/Vol] 2.1 mg/dL Normal 1.6-2.3 [facility] Comment on above: Performed By: #### L AB113, [id number], LAB15 ####Doughnut Dough Mixer: MARY SOTELO ([id number])[facility] ([facility])[address] [place] [address] No Panel Informationon 08-15 Interpretation and review of laboratory results Abnormal [facility] Interpretation and review of laboratory results Abnormal [facility] Interpretation and review of laboratory results Abnormal [facility] Interpretation and review of laboratory results Abnormal [facility] Interpretation and review of laboratory results Normal [facility] PHOSPHORUSon 08-15-2024 Phosphate [Mass/Vol] 4.5 mg/dL Normal 2.5-4.5 [facility] Comment on above: Performed By: #### L AB113, [id number], LAB15 ####Doughnut Dough Mixer: MARY SOTELO ([id number])[facility] ([facility])[address] [place] [address] [place] Phosphate [Moles/Vol]on 08-03 Phosphate [Mass/Vol] 4.5 mg/dL 2.5 - 4 .5 mg/dL [facility] Progress Noteon 08-15-2024 [facility] Progress Note Normal [facility] BASIC METABOLIC PANELon 08-03 Anion gap [Moles/Vol] 10 mmol/L Normal - [facility] Comment on above: Performed By: #### L AB113, [id number], LAB15 ####Doughnut Dough Mixer: MARY SOTELO ([id number])[facility] ([facility])[address] [place] [address] [place] Calcium [Mass/Vol] 6.8 mg/dL Low 8.4-10.4 [facility] Comment on above: Performed By: #### L AB113, [id number], LAB15 ####Doughnut Dough Mixer: MARY SOTELO ([id number])[facility] ([facility])[address] [place] [address] [place] Chloride [Moles/Vol] 96 mmol/L Low 98-107 [facility] Comment on above: Performed By: #### L AB113, [id number], LAB15 ####Doughnut Dough Mixer: MARY SOTELO ([id number])[facility] ([facility])[address] [place] [address] [place] CO2 [Moles/Vol] 25 mmol/L Normal 22-30 [facility] Comment on above: Performed By: #### L AB113, [id number], LAB15 ####Doughnut Dough Mixer: MARY SOTELO ([id number])[facility] ([facility])[address] [place] [address] Creatinine [Mass/Vol] 1.91 mg/dL High 0.52-1.04 [facility] Comment on above: Performed By: #### L AB113, [id number], LAB15 ####Doughnut Dough Mixer: MARY SOTELO ([id number])[facility] ([facility])[address] [place] [address] GLOMERULAR FILTRATION RATE ML/MIN/1.73 SQ M.PREDICTED 29.0 mL/min/1.73m*2 Low >60.0 [facility] Comment on above: Result Comment: Calc ulation based on the Chronic Kidney Disease Epidemiology Collaboration (CKD-EPI) equation refit without adjustment for race Performed By: #### Dora AB113, [id number], LAB15 ####Doughnut Dough Mixer: MARY SOTELO ([id number])[facility] [place] [address] Glucose [Mass/Vol] 361 mg/dL High 70-100 [facility] Comment on above: Performed By: #### L AB113, [id number], LAB15 ####Doughnut Dough Mixer: MARY SOTELO ([id number])[facility] ([facility])[address] [place] [address] [place] Potassium [Moles/Vol] 3.5 mmol/L Normal 3.5-5.1 [facility] Comment on above: Performed By: #### L AB113, [id number], LAB15 ####Doughnut Dough Mixer: MARY SOTELO ([id number])[facility] ([facility])[address] [place] [address] [place] Sodium [Moles/Vol] 130 mmol/L Low 135-145 [facility] Comment on above: Performed By: #### L AB113, [id number], LAB15 ####Doughnut Dough Mixer: MARY SOTELO ([id number])[facility])[address] [place] [address] Urea nitrogen [Mass/Vol] 18 mg/dL High 7-17 [facility] Comment on above: Performed By: #### L AB113, [id number], LAB15 ####Doughnut Dough Mixer: MARY SOTELO ([id number])[facility] ([facility])[address] [place] [address] BLOOD CULTUREon 08-14-2024 Bacteria identified Cx Nom (Bld) Normal [facility] Comment on above: Performed By: #### L [id number] ####Doughnut Dough Mixer: MARY SOTELO ([id number])[facility] ([facility])[address] [place] [address] Bacteria identified Cx Nom (Bld) Normal [facility] Comment on above: Performed By: #### L [id number] ####Doughnut Dough Mixer: MARY SOTELO ([id number])[facility] ([facility])[address] [place] [address] Basic metabolic 1998 panelon 08-14-2024 Anion gap [Moles/Vol] 10 mmol/L 3 - 13 mmol/L [facility] Calcium [Mass/Vol] 6.8 mg/dL Low 8.4 - 10. 4 mg/dL [facility] Chloride [Moles/Vol] 96 mmol/L Low 98 - 10 7 mmol/L [facility] CO2 [Moles/Vol] 25 mmol/L 22 - 30 mmol/L [facility] Creatinine [Mass/Vol] 1.91 mg/dL High 0.52 - 1.04 mg/dL [facility] GFR/1.73 sq M.predicted (S/P/Bld) [Vol rate/Area] 29 mL/min Low - PINF [facility] Glucose [Mass/Vol] 361 mg/dL High 70 - 100 mg/dL [facility] Interpretation and review of laboratory results Abnormal [facility] Potassium [Moles/Vol] 3.5 mmol/L 3.5 - 5.1 mmol/L [facility] Sodium [Moles/Vol] 130 mmol/L Low 135 - 145 mmol/L [facility] Urea nitrogen [Mass/Vol] 18 mg/dL High 7 - 17 mg/dL [facility] CBC W Auto Differential pane l (Bld)Ordered By: Wei Adamson on 08-14-2024 Basophils (Bld) [#/Vol] 0 10*3/uL 0.0 - 0.2 10*3/uL [facility] Basophils/100 WBC (Bld) 0.2 % 0.0 - 2.0 % [facility] Eosinophils (Bld) [#/Vol] 0 10*3/uL 0.0 - 0.5 10*3/uL [facility] Eosinophils/100 WBC (Bld) 0.2 % 0.0 - 6.0 % [facility] Erythrocyte distribution width (RBC) [Ratio] 16.4 % High 11.5 - 15.0 % [facility] Hematocrit (Bld) [Volume fraction] 28.7 % Low 35.0 - 47.0 % [facility] Hemoglobin (Bld) [Mass/Vol] 9.2 g/dL Low 11.7 - 16.0 g/dL [facility] Immature granulocytes (Bld) [#/Vol] 0 10*3/uL NINF - 0.1 10*3/uL [facility] Immature granulocytes/100 WBC (Bld) 0.6 % 0.0 - 2.0 % [facility] Interpretation and review of laboratory results Abnormal [facility] IPF 4 [facility] Lymphocytes (Bld) [#/Vol] 0.7 10*3/uL Low 1.0 - 4.3 10*3/uL [facility] Lymphocytes/100 WBC (Bld) 13.6 % Low 15.0 - 45.0 % [facility] MCH (RBC) [Entitic mass] 29.2 pg 26.0 - 34.0 pg [facility] MCHC (RBC) [Mass/Vol] 32.1 % 30.5 - 36.0 % [facility] MCV (RBC) [Entitic vol] 91.1 fL 77.0 - 99.0 fL [facility] Monocytes (Bld) [#/Vol] 0.4 10*3/uL 0.0 - 0.9 10*3/uL [facility] Monocytes/100 WBC (Bld) 8 % 5.0 - 13.0 % [facility] Neutrophils (Bld) [#/Vol] 4 10*3/uL 1.8 - 7.5 10*3/uL [facility] Neutrophils/100 WBC (Bld) 77.4 % 38.0 - 82.0 % [facility] Nucleated RBC/100 WBC (Bld) [Ratio] 0 % [facility] Platelet mean volume (Bld) [Entitic vol] 10.9 fL 9.0 - 12.7 fL [facility] Platelets (Bld) [#/Vol] 79 10*3/uL Low 140 - 440 10*3/uL [facility] RBC (Bld) [#/Vol] 3.15 10*6/uL Low 3.80 - 5.2 0 10*6/uL [facility] WBC (Bld) [#/Vol] 5.2 10*3/uL 3.6 - 10.7 10*3/uL [facility] CBC WITH AUTO DIFFERENTIALon 08-14-2024 Basophils (Bld) [#/Vol] 0.0 10*3/uL Normal 0.0-0.2 [facility] Comment on above: Performed By: #### L [id number] ####Doughnut Dough Mixer: MARY SOTELO ([id number])[facility])[address] [place] [address] Basophils/100 WBC (Bld) 0.2 % Normal 0.0-2.0 [facility] Comment on above: Performed By: #### L [id number] ####Doughnut Dough Mixer: MARY SOTELO ([id number])[facility])[address] [place] [address] Eosinophils (Bld) [#/Vol] 0.0 10*3/uL Normal 0.0-0.5 [facility] Comment on above: Performed By: #### L [id number] ####Doughnut Dough Mixer: MARY SOTELO ([id number])[facility])[address] [place] [address] Eosinophils/100 WBC (Bld) 0.2 % Normal 0.0-6.0 [facility] Comment on above: Performed By: #### L [id number] ####Doughnut Dough Mixer: MARY SOTELO ([id number])[facility])[address] [place] [address] Erythrocyte distribution width (RBC) [Ratio] 16.4 % High 11.5-15.0 [facility] Comment on above: Performed By: #### L [id number] ####Doughnut Dough Mixer: MARY SOTELO ([id number])[address] Hematocrit (Bld) [Volume fraction] 28.7 % Low 35.0-47.0 [facility] Comment on above: Performed By: #### L [id number] ####Doughnut Dough Mixer: MARY SOTELO ([id number])[facility])[address] [place] [address] Hemoglobin (Bld) [Mass/Vol] 9.2 g/dL Low 11.7-16.0 [facility] Comment on above: Performed By: #### L [id number] ####Doughnut Dough Mixer: MARY SOTELO ([id number])[address] IMMATURE GRANS % 0.6 % Normal 0.0-2.0 [facility] Comment on above: Performed By: #### L [id number] ####Doughnut Dough Mixer: MARY SOTELO ([id number])[address] IMMATURE GRANS ABSOLUTE 0.0 10*3/uL Normal <0.1 [facility] Comment on above: Performed By: #### L [id number] ####Doughnut Dough Mixer: MARY SOTELO ([id number])[address] IPF 4 Normal [facility] Comment on above: Performed By: #### L [id number] ####Doughnut Dough Mixer: MARY SOTELO ([id number])[address] Lymphocytes (Bld) [#/Vol] 0.7 10*3/uL Low 1.0-4.3 [facility] Comment on above: Performed By: #### L [id number] ####Doughnut Dough Mixer: MARY [id number])[facility])[address] [place] [address] Lymphocytes/100 WBC (Bld) 13.6 % Low 15.0-45.0 [facility] Comment on above: Performed By: #### L [id number] ####Doughnut Dough Mixer: MARY SOTELO ([id number])[facility])[address] [place] [address] MCH (RBC) [Entitic mass] 29.2 pg Normal 26.0-34.0 [facility] Comment on above: Performed By: #### L [id number] ####Doughnut Dough Mixer: MARY SOTELO ([id number])[facility])[address] [place] [address] MCHC 32.1 % Normal 30.5-36.0 [facility] Comment on above: Performed By: #### L [id number] ####Doughnut Dough Mixer: MARY SOTELO ([id number])[facility])[address] [place] [address] MCV (RBC) [Entitic vol] 91.1 fL Normal 77.0-99.0 [facility] Comment on above: Performed By: #### L [id number] ####Doughnut Dough Mixer: MARY SOTELO ([id number])[facility])[address] [place] [address] Monocytes (Bld) [#/Vol] 0.4 10*3/uL Normal 0.0-0.9 [facility] Comment on above: Performed By: #### L [id number] ####Doughnut Dough Mixer: MARY SOTELO ([id number])[facility])[address] [place] [address] Monocytes/100 WBC (Bld) 8.0 % Normal 5.0-13.0 [facility] Comment on above: Performed By: #### L [id number] ####Doughnut Dough Mixer: MARY SOTELO ([id number])[facility])[address] [place] [address] NEUTROPHILS ABSOLUTE 4.0 10*3/uL Normal 1.8-7.5 [facility] Comment on above: Performed By: #### L [id number] ####Doughnut Dough Mixer: MARY SOTELO ([id number])[facility] ([facility])[address] [place] [address] Neutrophils/100 WBC (Bld) 77.4 % Normal 38.0-82.0 [facility] Comment on above: Performed By: #### L [id number] ####Doughnut Dough Mixer: MARY SOTELO ([id number])[facility] ([facility])[address] [place] [address] NRBC 0.0 /100 WBCs Normal 0.0-2.0 [facility] Comment on above: Performed By: #### L [id number] ####Doughnut Dough Mixer: MARY SOTELO ([id number])[facility] ([facility])[address] [place] [address] Platelet mean volume (Bld) [Entitic vol] 10.9 fL Normal 9.0-12.7 [facility] Comment on above: Performed By: #### L [id number] ####Doughnut Dough Mixer: MARY SOTELO ([id number])[facility] ([facility])[address] [place] [address] Platelets (Bld) [#/Vol] 79 10*3/uL Low 140-440 [facility] Comment on above: Performed By: #### L [id number] ####Doughnut Dough Mixer: MARY SOTELO ([id number])[facility] ([facility])[address] [place] [address] [place] RBC (Bld) [#/Vol] 3.15 10*6/uL Low 3.80-5.20 [facility] Comment on above: Performed By: #### L [id number] ####Doughnut Dough Mixer: MARY SOTELO ([id number])[facility] ([facility])[address] [place] [address] WBC (Bld) [#/Vol] 5.2 10*3/uL Normal 3.6-10.7 [facility] Comment on above: Performed By: #### L [id number] ####Doughnut Dough Mixer: MARY SOTELO ([id number])[facility] ([facility])[address] [place] [address] [place] IDNon 08-14-2024 IDN Normal [facility] Laboratory - Chemistry and C hemistry - challengeon 08-14-2024 Glucose [Mass/Vol] 248 mg/dL High 70 - 100 mg/dL [facility] Glucose [Mass/Vol] 233 mg/dL High 70 - 100 mg/dL [facility] Glucose [Mass/Vol] 294 mg/dL High 70 - 100 mg/dL [facility] Glucose [Mass/Vol] 356 mg/dL High 70 - 100 mg/dL [facility] Magnesium [Mass/Vol] 2.1 mg/dL 1.6 - 2 .3 mg/dL [facility] MAGNESIUMon 08-14-2024 Magnesium [Mass/Vol] 2.1 mg/dL Normal 1.6-2.3 [facility] Comment on above: Performed By: #### L AB113, [id number], LAB15 ####Doughnut Dough Mixer: MARY SOTELO ([id number])[facility] ([facility])[address] [place] [address] No Panel Informationon 08-14 Interpretation and review of laboratory results Abnormal [facility] Interpretation and review of laboratory results Abnormal [facility] Interpretation and review of laboratory results Abnormal [facility] Interpretation and review of laboratory results Abnormal [facility] Interpretation and review of laboratory results Normal [facility] PHOSPHORUSon 08-14-2024 Phosphate [Mass/Vol] 2.9 mg/dL Normal 2.5-4.5 [facility] Comment on above: Performed By: #### L AB113, [id number], LAB15 ####Doughnut Dough Mixer: MARY SOTELO ([id number])[facility] ([facility])[address] [place] [address] Phosphate [Moles/Vol]on 08-03 Phosphate [Mass/Vol] 2.9 mg/dL 2.5 - 4 .5 mg/dL [facility] Progress Noteon 08-14-2024 Progress Note Normal [facility] Progress Note Normal [facility] Progress Note Normal [facility] Progress Note Normal [facility] BASIC METABOLIC PANELon 08-03 Anion gap [Moles/Vol] 11 mmol/L Normal 3-13 [facility] Comment on above: Performed By: #### L AB15, [id number], [id number] ####Doughnut Dough Mixer: MARY SOTELO ([id number])[facility] ([facility])[address] [place] [address] Calcium [Mass/Vol] 7.1 mg/dL Low 8.4-10.4 [facility] Comment on above: Performed By: #### Dora AB15, [id number], [id number] ####Doughnut Dough Mixer: MARY SOTELO ([id number])[facility] ([facility])[address] [place] [address] Chloride [Moles/Vol] 103 mmol/L Normal 98-107 [facility] Comment on above: Performed By: #### Dora AB15, [id number], [id number] ####Doughnut Dough Mixer: MARY SOTELO ([id number])[facility] ([facility])[address] [place] [address] CO2 [Moles/Vol] 19 mmol/L Low 22-30 [facility] Comment on above: Performed By: #### L AB15, [id number], [id number] ####Doughnut Dough Mixer: MARY SOTELO ([id number])[facility] ([facility])[address] [place] [address] Creatinine [Mass/Vol] 2.43 mg/dL High 0.52-1.04 [facility] Comment on above: Performed By: #### L AB15, [id number], [id number] ####Doughnut Dough Mixer: MARY SOTELO ([id number])[facility])[address] [place] [address] [place] GLOMERULAR FILTRATION RATE ML/MIN/1.73 SQ M.PREDICTED 21.7 mL/min/1.73m*2 Low >60.0 [facility] Comment on above: Result Comment: Calc ulation based on the Chronic Kidney Disease Epidemiology Collaboration (CKD-EPI) equation refit without adjustment for race Performed By: #### L AB15, [id number], [id number] ####Doughnut Dough Mixer: MARY SOTELO ([id number])[facility])[address] [place] [address] Glucose [Mass/Vol] 211 mg/dL High 70-100 [facility] Comment on above: Performed By: #### L AB15, [id number], IEV355 ####Doughnut Dough Mixer: MARY SOTELO ([id number])[facility])[address] [place] [address] Potassium [Moles/Vol] 3.7 mmol/L Normal 3.5-5.1 [facility] Comment on above: Performed By: #### Dora AB15, [id number], [id number] ####Doughnut Dough Mixer: MARY SOTELO ([id number])[facility] ([facility])[address] [place] [address] Sodium [Moles/Vol] 134 mmol/L Low 135-145 [facility] Comment on above: Performed By: #### L AB15, [id number], JCS439 ####Doughnut Dough Mixer: MARY SOTELO ([id number])[facility])[address] [place] [address] Urea nitrogen [Mass/Vol] 18 mg/dL High 7-17 [facility] Comment on above: Performed By: #### L AB15, [id number], [id number] ####Doughnut Dough Mixer: MARY SOTELO ([id number])[facility])[address] [place] [address] [place] BETA HYDROXYBUTYRATEon 08-13 BETA HYDROXYBUTYRATE 33.80 mg/dL High 0.20-2.81 [facility] Comment on above: Performed By: #### L AB89, [id number], [id number], [id number] ####Doughnut Dough Mixer: MARY SOTELO ([id number])[facility])[address] [place] [address] BLOOD GAS ARTERIALon 024 Base excess Calc (Bld) [Moles/Vol] -3.2000 mmol/L Low -3.0-3.0 [facility] Comment on above: Performed By: #### L AB76 ####Doughnut Dough Mixer: MARY SOTELO ([id number])[facility] ([facility])[address] [place] [address] CO2 [Moles/Vol] 24.8 mmol/L Normal 23.0-27.0 [facility] Comment on above: Performed By: #### L AB76 ####Doughnut Dough Mixer: MARY SOTELO ([id number])[facility] ([facility])[address] [place] [address] HCO3 (Bld) [Moles/Vol] 23.3 mmol/L Normal 21.0-25.0 [facility] Comment on above: Performed By: #### L AB76 ####Doughnut Dough Mixer: MARY SOTELO ([id number])[facility] ([facility])[address] [place] [address] Hemoglobin (Bld) [Mass/Vol] 8.3 g/dL Normal Screen only [facility] Comment on above: Performed By: #### L AB76 ####Doughnut Dough Mixer: MARY SOTELO ([id number])[facility] ([facility])[address] [place] [address] OXYGEN SATURATION (%) IN ARTERIAL BLOOD 95.8 % Normal 95.0-100.0 [facility] Comment on above: Performed By: #### L AB76 ####Doughnut Dough Mixer: MARY SOTELO ([id number])[facility] ([facility])[address] [place] [address] [place] PCO2 ARTERIAL 49.4 mm Hg High >35.0-<45.0 [facility] Comment on above: Performed By: #### L AB76 ####Doughnut Dough Mixer: MARY SOTELO ([id number])[facility] ([facility])[address] [place] [address] PH ARTERIAL 7.291 Low 7.350-7.450 [facility] Comment on above: Performed By: #### L AB76 ####Doughnut Dough Mixer: MARY SOTELO ([id number])[facility] ([facility])[address] [place] [address] PO2 ARTERIAL 84.7 mm Hg Normal 80.0-100.0 [facility] Comment on above: Performed By: #### L AB76 ####Doughnut Dough Mixer: MARY SOTELO ([id number])[facility] ([facility])[address] [place] [address] SOURCE OF OXYGEN 30% Oxygen Normal [facility] Comment on above: Performed By: #### L [id number] ####Doughnut Dough Mixer: MARY SOTELO ([id number])[facility] ([facility])[address] [place] [address] CARECOORDon 08-13-2024 CARECOORD Normal [facility] [place] Normal [facility] CBC W Auto Differential pane l (Bld)Ordered By: Elin Cline on 08-13-2024 Basophils (Bld) [#/Vol] 0 10*3/uL 0.0 - 0.2 10*3/uL [facility] Basophils/100 WBC (Bld) 0 % 0.0 - 2.0 % [facility] Eosinophils (Bld) [#/Vol] 0 10*3/uL 0.0 - 0.5 10*3/uL [facility] Eosinophils/100 WBC (Bld) 0 % 0.0 - 6.0 % [facility] Erythrocyte distribution width (RBC) [Ratio] 15.9 % High 11.5 - 15.0 % [facility] Hematocrit (Bld) [Volume fraction] 28.2 % Low 35.0 - 47.0 % [facility] Hemoglobin (Bld) [Mass/Vol] 9.2 g/dL Low 11.7 - 16.0 g/dL [facility] Immature granulocytes (Bld) [#/Vol] 0 10*3/uL NINF - 0.1 10*3/uL [facility] Immature granulocytes/100 WBC (Bld) 0.6 % 0.0 - 2.0 % [facility] Interpretation and review of laboratory results Abnormal [facility] IPF 3 [facility] Lymphocytes (Bld) [#/Vol] 0.3 10*3/uL Low 1.0 - 4.3 10*3/uL [facility] Lymphocytes/100 WBC (Bld) 9 % Low 15.0 - 45.0 % [facility] [facility] MCH (RBC) [Entitic mass] 29.4 pg 26.0 - 34.0 pg [facility] MCHC (RBC) [Mass/Vol] 32.6 % 30.5 - 36.0 % [facility] MCV (RBC) [Entitic vol] 90.1 fL 77.0 - 99.0 fL [facility] Monocytes (Bld) [#/Vol] 0.1 10*3/uL 0.0 - 0.9 10*3/uL [facility] Monocytes/100 WBC (Bld) 3.8 % Low 5.0 - 13.0 % [facility] Neutrophils (Bld) [#/Vol] 2.7 10*3/uL 1.8 - 7.5 10*3/uL [facility] Neutrophils/100 WBC (Bld) 86.6 % High 38.0 - 82.0 % [facility] Nucleated RBC/100 WBC (Bld) [Ratio] 0 % [facility] [employer] Platelet mean volume (Bld) [Entitic vol] 10.5 fL 9.0 - 12.7 fL [facility] Platelets (Bld) [#/Vol] 78 10*3/uL Low 140 - 440 10*3/uL [facility] RBC (Bld) [#/Vol] 3.13 10*6/uL Low 3.80 - 5.2 0 10*6/uL [facility] WBC (Bld) [#/Vol] 3.1 10*3/uL Low 3.6 - 10.7 10*3/uL [facility] CBC WITH AUTO DIFFERENTIALon 08-13-2024 Basophils (Bld) [#/Vol] 0.0 10*3/uL Normal 0.0-0.2 [facility] Comment on above: Performed By: #### L [id number] ####D[employer]nut D[employer] Mixer: MARY SOTELO ([id number])[facility] ([address] Basophils/100 WBC (Bld) 0.0 % Normal 0.0-2.0 [facility] Comment on above: Performed By: #### L [id number] ####D[employer] D[employer] Mixer: MARY SOTELO ([id number])[facility])[address] [place] [address] Eosinophils (Bld) [#/Vol] 0.0 10*3/uL Normal 0.0-0.5 [facility] Comment on above: Performed By: #### L [id number] ####D[employer]nut D[employer] Mixer: MARY SOTELO ([id number])[facility])[address] [place] [address] Eosinophils/100 WBC (Bld) 0.0 % Normal 0.0-6.0 [facility] Comment on above: Performed By: #### L [id number] ####Doughnut Dough Mixer: MARY SOTELO ([id number])[address] Erythrocyte distribution width (RBC) [Ratio] 15.9 % High 11.5-15.0 [facility] Comment on above: Performed By: #### L [id number] ####D[employer]nut D[employer] Mixer: MARY SOTELO ([id number])[facility])[address] [place] [address] Hematocrit (Bld) [Volume fraction] 28.2 % Low 35.0-47.0 [facility] Comment on above: Performed By: #### L [id number] ####Doughnut Dough Mixer: MARY SOTELO ([id number])[facility])[address] [place] [address] Hemoglobin (Bld) [Mass/Vol] 9.2 g/dL Low 11.7-16.0 [facility] Comment on above: Performed By: #### L [id number] ####Doughnut Dough Mixer: MARY SOTELO ([id number])[facility])[address] [place] [address] IMMATURE GRANS % 0.6 % Normal 0.0-2.0 [facility] Comment on above: Performed By: #### L [id number] ####Doughnut Dough Mixer: MARY SOTELO ([id number])[facility] ([facility])[address] [place] [address] IMMATURE GRANS ABSOLUTE 0.0 10*3/uL Normal <0.1 [facility] Comment on above: Performed By: #### L [id number] ####Doughnut Dough Mixer: MARY SOTELO ([id number])[facility])[address] [place] [address] IPF 3 Normal [facility] Comment on above: Performed By: #### L [id number] ####D[employer]nut D[employer] Mixer: MARY SOTELO ([id number])[facility])[address] [place] [address] Lymphocytes (Bld) [#/Vol] 0.3 10*3/uL Low 1.0-4.3 [facility] Comment on above: Performed By: #### L [id number] ####Doughnut Dough Mixer: MARY SOTELO ([id number])[facility])[address] [place] [address] Lymphocytes/100 WBC (Bld) 9.0 % Low 15.0-45.0 [facility] Comment on above: Performed By: #### L [id number] ####Doughnut Dough Mixer: MARY SOTELO ([id number])[facility])[address] [place] [address] MCH (RBC) [Entitic mass] 29.4 pg Normal 26.0-34.0 [facility] Comment on above: Performed By: #### L [id number] ####Doughnut Dough Mixer: MARY SOTELO ([id number])[facility])[address] [place] [address] MCHC 32.6 % Normal 30.5-36.0 [facility] Comment on above: Performed By: #### L [id number] ####Doughnut Dough Mixer: MARY SOTELO ([id number])[facility])[address] [place] [address] MCV (RBC) [Entitic vol] 90.1 fL Normal 77.0-99.0 [facility] Comment on above: Performed By: #### L [id number] ####Doughnut Dough Mixer: MARY SOTELO ([id number])[facility])[address] [place] [address] Monocytes (Bld) [#/Vol] 0.1 10*3/uL Normal 0.0-0.9 [facility] Comment on above: Performed By: #### L [id number] ####Doughnut Dough Mixer: MARY SOTELO ([id number])[facility] ([facility])[address] [place] [address] Monocytes/100 WBC (Bld) 3.8 % Low 5.0-13.0 [facility] Comment on above: Performed By: #### L [id number] ####Doughnut Dough Mixer: MARY SOTELO ([id number])[facility])[address] [place] [address] NEUTROPHILS ABSOLUTE 2.7 10*3/uL Normal 1.8-7.5 [facility] Comment on above: Performed By: #### L [id number] ####Doughnut Dough Mixer: MARY SOTELO ([id number])[facility])[address] [place] [address] Neutrophils/100 WBC (Bld) 86.6 % High 38.0-82.0 [facility] Comment on above: Performed By: #### L [id number] ####Doughnut Dough Mixer: MARY SOTELO ([id number])[facility])[address] [place] [address] NRBC 0.0 /100 WBCs Normal 0.0-2.0 [facility] Comment on above: Performed By: #### L [id number] ####Doughnut Dough Mixer: MARY SOTELO ([id number])[facility])[address] [place] [address] Platelet mean volume (Bld) [Entitic vol] 10.5 fL Normal 9.0-12.7 [facility] Comment on above: Performed By: #### L [id number] ####Doughnut Dough Mixer: MARY SOTELO ([id number])[facility])[address] [place] [address] Platelets (Bld) [#/Vol] 78 10*3/uL Low 140-440 [facility] Comment on above: Performed By: #### L [id number] ####Doughnut Dough Mixer: MARY SOTELO ([id number])[facility])[address] [place] [address] RBC (Bld) [#/Vol] 3.13 10*6/uL Low 3.80-5.20 [facility] Comment on above: Performed By: #### L [id number] ####Doughnut Dough Mixer: MARY SOTELO ([id number])[facility])[address] [place] [address] WBC (Bld) [#/Vol] 3.1 10*3/uL Low 3.6-10.7 [facility] Comment on above: Performed By: #### L [id number] ####Doughnut Dough Mixer: MARY SOTELO ([id number])[facility])[address] [place] [address] Erythrocyte distribution width (RBC) [Ratio] 16.1 % High 11.5-15.0 [facility] Comment on above: Performed By: #### L [id number], [id number] ####Doughnut Dough Mixer: MARY SOTELO ([id number])[facility])[address] [place] [address] Hematocrit (Bld) [Volume fraction] 21.0 % Low 35.0-47.0 [facility] Comment on above: Performed By: #### L [id number], [id number] ####Doughnut Dough Mixer: MARY SOTELO ([id number])[facility])[address] [place] [address] Hemoglobin (Bld) [Mass/Vol] 6.7 g/dL Critically low 11.7-16.0 [facility] Comment on above: Performed By: #### L [id number], [id number] ####Doughnut Dough Mixer: MARY SOTELO ([id number])[facility] ([facility])[address] [place] [address] IPF 3 Normal [facility] Comment on above: Performed By: #### L [id number], [id number] ####Doughnut Dough Mixer: MARY SOTELO ([id number])[facility] ([facility])[address] [place] [address] MCH (RBC) [Entitic mass] 29.8 pg Normal 26.0-34.0 [facility] Comment on above: Performed By: #### Dora [id number], [id number] ####Doughnut Dough Mixer: MARY SOTELO ([id number])[facility])[address] [place] [address] MCHC 31.9 % Normal 30.5-36.0 [facility] Comment on above: Performed By: #### Dora [id number], [id number] ####Doughnut Dough Mixer: MARY SOTELO ([id number])[facility] ([facility])[address] [place] [address] MCV (RBC) [Entitic vol] 93.3 fL Normal 77.0-99.0 [facility] Comment on above: Performed By: #### Dora [id number], [id number] ####Doughnut D[employer] Mixer: MARY SOTELO ([id number])[facility] ([facility])[address] [place] [address] Platelet mean volume (Bld) [Entitic vol] 11.1 fL Normal 9.0-12.7 [facility] Comment on above: Performed By: #### L [id number], [id number] ####Doughnut Dough Mixer: MARY SOTELO ([id number])[facility])[address] [place] [address] Platelets (Bld) [#/Vol] 65 10*3/uL Low 140-440 [facility] Comment on above: Performed By: #### L [id number], [id number] ####Doughnut Dough Mixer: MARY SOTELO ([id number])[facility] [place] [address] RBC (Bld) [#/Vol] 2.25 10*6/uL Low 3.80-5.20 [facility] Comment on above: Performed By: #### L [id number], [id number] ####Doughnut Dough Mixer: MARY SOTELO ([id number])[facility] [place] [address] WBC (Bld) [#/Vol] 2.5 10*3/uL Low 3.6-10.7 [facility] Comment on above: Performed By: #### L [id number], [id number] ####Doughnut Dough Mixer: MARY SOTELO ([id number])[facility] ([facility])[address] [place] [address] COMPLETE URINALYSISon 2023 BACTERIA (#/HPF) IN URINE Few Abnormal Negative [facility] Comment on above: Performed By: #### L [id number] ####Doughnut Dough Mixer: MARY SOTELO ([id number])[facility] ([facility])[address] [place] [address] BILIRUBIN, TOTAL PRESENCE IN URINE Negative Normal Negative [facility] Comment on above: Performed By: #### L [id number] ####Doughnut Dough Mixer: MARY SOTELO ([id number])[facility] ([facility])[address] [place] [address] Clarity (U) Extra Turbid Abnormal Clear [facility] Comment on above: Performed By: #### L [id number] ####Doughnut Dough Mixer: MARY SOTELO ([id number])[facility] ([facility])[address] [place] [address] Color (U) Yellow Normal Lt. Yellow [facility] Comment on above: Performed By: #### L [id number] ####Doughnut Dough Mixer: MARY SOTELO ([id number])[facility] ([facility])[address] [place] [address] GLUCOSE (MG/DL) IN URINE Normal Normal Normal (<70) [facility] Comment on above: Performed By: #### L [id number] ####Doughnut Dough Mixer: MARY SOTELO ([id number])[facility] ([facility])[address] [place] [address] HEMOGLOBIN PRESENCE IN URINE 0.2 mg/dL Abnormal Negative [facility] Comment on above: Performed By: #### L [id number] ####Doughnut Dough Mixer: MARY SOTELO ([id number])[facility] ([facility])[address] [place] [address] Ketones Ql (U) Trace Abnormal Negative [facility] Comment on above: Performed By: #### L [id number] ####Doughnut Dough Mixer: MARY SOTELO ([id number])[facility] ([facility])[address] [place] [address] LEUKOCYTE ESTERASE PRESENCE IN URINE BY TEST STRIP 500 Bere/uL Abnormal Negative [facility] Comment on above: Performed By: #### L [id number] ####Doughnut Dough Mixer: MARY SOTELO ([id number])[facility] ([facility])[address] [place] [address] [place] MUCUS (#/LPF) IN URINE SEDIMENT Few Normal Negative [facility] Comment on above: Performed By: #### L [id number] ####Doughnut Dough Mixer: MARY SOTELO ([id number])[facility] ([facility])[address] [place] [address] NITRITE PRESENCE IN URINE Negative Normal Negative [facility] Comment on above: Performed By: #### L [id number] ####Doughnut Dough Mixer: MARY SOTELO ([id number])[facility] ([facility])[address] [place] [address] NON-SQUAMOUS EPITHELIAL (#/HPF) IN URINE 0-2 Abnormal Negative [facility] Comment on above: Performed By: #### L [id number] ####Doughnut Dough Mixer: MARY SOTELO ([id number])[facility] ([facility])[address] [place] [address] pH (U) 5.5 [pH] Normal 5.0-8.0 [facility] Comment on above: Performed By: #### L [id number] ####Doughnut Dough Mixer: MARY SOTELO ([id number])[facility] ([facility])[address] [place] [address] Protein (U) [Mass/Vol] 100 mg/dL Abnormal Negative [facility] Comment on above: Performed By: #### L [id number] ####Doughnut Dough Mixer: MARY SOTELO ([id number])[facility] ([facility])[address] [place] [address] RBC (#/HPF) IN URINE SEDIMENT 11-25 Abnormal 0-2 [facility] Comment on above: Performed By: #### L [id number] ####Doughnut Dough Mixer: MARY SOTEOL ([id number])[facility])[address] [place] [address] Specific gravity (U) [Rel density] 1.021 Normal 1.005-1.030 [facility] Comment on above: Performed By: #### L [id number] ####Doughnut Dough Mixer: MARY SOTELO ([id number])[facility] ([facility])[address] [place] [address] SQUAMOUS EPITHELIAL CELLS (#/HPF) IN URINE SEDIMENT 0-2 Normal 3-5 [facility] Comment on above: Performed By: #### L [id number] ####Doughnut Dough Mixer: MARY SOTELO ([id number])[facility] ([facility])[address] [place] [address] UROBILINOGEN (MG/DL) IN URINE Normal Normal Normal (0-1) [facility] Comment on above: Performed By: #### L [id number] ####Doughnut Dough Mixer: MARY SOTELO ([id number])[facility] ([facility])[address] [place] [address] WBC (LEUKOCYTE) (#/HPF) IN URINE SEDIMENT >100 Abnormal 0-5 [facility] Comment on above: Performed By: #### L [id number] ####Doughnut Dough Mixer: MARY SOTELO ([id number])[facility])[address] [place] [address] WBC (LEUKOCYTE) CLUMPS (#/HPF) IN URINE SEDIMENT Occasional Abnormal Negative [facility] Comment on above: Performed By: #### L [id number] ####Doughnut Dough Mixer: MARY SOTELO ([id number])[facility])[address] [place] [address] YEAST (#/HPF) IN URINE Many Abnormal Negative [facility] Comment on above: Performed By: #### L [id number] ####Doughnut Dough Mixer: MARY SOTELO ([id number])[facility])[address] [place] [address] Consulton 08-13-2024 Consult Normal [facility] Consult Normal [facility] Consult Normal [facility] HAPTOGLOBINon 08-13-2024 HAPTOGLOBIN 44.2 mg/dL Normal 30.0-200.0 [facility] Comment on above: Performed By: #### L AB89, [id number], [id number], [id number] ####Doughnut Dough Mixer: MARY SOTELO ([id number])[facility])[address] [place] [address] HEMOGLOBIN AND HEMATOCRIT, B LOODon 08-13-2024 Hematocrit (Bld) [Volume fraction] 28.3 % Low 35.0-47.0 [facility] Comment on above: Order Comment: Recom mend 1 hour post transfusion Performed By: #### L [id number] ####Doughnut Dough Mixer: MARY SOTELO ([id number])[facility])[address] [place] [address] Hemoglobin (Bld) [Mass/Vol] 9.2 g/dL Low 11.7-16.0 [facility] Comment on above: Order Comment: Recom mend 1 hour post transfusion Performed By: #### L [id number] ####Doughnut Dough Mixer: MARY SOTELO ([id number])[facility])[address] [place] [address] Hematocrit (Bld) [Volume fraction] 27.5 % Low 35.0-47.0 [facility] Comment on above: Order Comment: Recom mend 1 hour post transfusion Performed By: #### L [id number] ####Doughnut Dough Mixer: MARY SOTELO ([id number])[facility] ([facility])[address] [place] [address] Hemoglobin (Bld) [Mass/Vol] 8.7 g/dL Low 11.7-16.0 [facility] Comment on above: Order Comment: Recom mend 1 hour post transfusion Performed By: #### L [id number] ####Doughnut Dough Mixer: MARY SOTELO ([id number])[facility] ([facility] [place] [address] HEPARIN-INDUCED PLATELET AB, REFL JONO UNFRAC HEP (BKR [facility])on 08-13-2024 [facility] HEPARIN INDUCED PLATELET ANTIBODY Negative Normal Negative [facility] Comment on above: Result Comment: This [...] Thromb Haemost 2008;6:1304-12). Performed By: #### L [id number] ####[facility] (AMDBEAKER)[address] [place], [place] [facility] PATIENT O.D. 0.052 Normal [facility] Comment on above: Result Comment: ____ ! O.D.units ! Result !! ! !! <=0.300 ! Negative !! >0.300 to <=0.500 ! Weak Positive !! >0.500 ! Positive !! ! !For additional information, please refer [email or web address](This link is being provided for informational/educational purposes only.)Test Performed by [facility],[address] [place] [id number] Wells M.D., Ph.D., Director of [phone], CLIA [id number] Performed By: #### L [id number] ####[employer] (AMDBEAKER)[address] [place], [place] Hemoglobin (Bld) [Mass/Vol]O rdered By: Laurel Alva on 08-13-2024 Hematocrit (Bld) [Volume fraction] 28.3 % Low 35.0 - 47.0 % [facility] Interpretation and review of laboratory results Abnormal [facility] LACTATE DEHYDROGENASEon 08-03 LDH [Catalytic activity/Vol] 184 U/L Normal 120-246 [facility] Comment on above: Performed By: #### L AB89, [id number], [id number], [id number] ####Doughnut Dough Mixer: MARY SOTELO ([id number])[address] LACTIC ACID WITH REFLEXon Lactate [Moles/Vol] mmol/L Low 0.7-2.0 [facility] Comment on above: Performed By: #### L [id number] ####Doughnut Dough Mixer: MARY SOTELO ([id number])[facility])[address] [place] [address] Laboratory - Chemistry and C hemistry - challengeon 08-13-2024 Glucose [Mass/Vol] 310 mg/dL High 70 - 100 mg/dL [facility] Glucose [Mass/Vol] 259 mg/dL High 70 - 100 mg/dL [facility] Glucose [Mass/Vol] 176 mg/dL High 70 - 100 mg/dL [facility] Troponin I.cardiac [Mass/Vol] 0.074 ng/mL High NINF - 0.034 ng/mL [facility] Glucose [Mass/Vol] 307 mg/dL High 70 - 100 mg/dL [facility] Troponin I.cardiac [Mass/Vol] 0.07 ng/mL High NINF - 0.034 ng/mL [facility] Troponin I.cardiac [Mass/Vol] 0.065 ng/mL High NINF - 0.034 ng/mL [facility] Glucose [Mass/Vol] 259 mg/dL High 70 - 100 mg/dL [facility] Troponin I.cardiac [Mass/Vol] 0.073 ng/mL High NINF - 0.034 ng/mL [facility] Lactate [Moles/Vol] mmol/L Low 0.7 - 2. 0 mmol/L [facility] Base excess Calc (Bld) [Moles/Vol] -3.2000 mmol/L Low -3.0 - 3.0 mmol/L [facility] CO2 (Bld) [Partial pressure] 49.4 mm[Hg] High - PINF [facility] CO2 [Moles/Vol] 24.8 mmol/L 23.0 - 27.0 mmol/L [facility] HCO3 (Bld) [Moles/Vol] 23.3 mmol/L 21.0 - 25.0 mmol/L [facility] Oxygen (Bld) [Partial pressure] 84.7 mm[Hg] [facility] pH (Bld) 7.291 [pH] Low 7.350 - 7.450 [facility] Beta hydroxybutyrate [Mass/Vol] 33.8 mg/dL High 0.20 - 2.81 mg/dL [facility] Laboratory - Hematology and Cell countson 08-13-2024 Haptoglobin [Mass/Vol] 44.2 mg/dL 30.0 - 200.0 mg/dL [facility] Hemoglobin (Bld) [Mass/Vol] 8.3 g/dL Screen only [facility] Anisocytosis Ql (Bld) Slight Abnormal (none) [facility] Band form neutrophils (Bld) [#/Vol] 0.1 10*3/uL High NINF - 0.0 10*3/uL [facility] Band form neutrophils/100 WBC (Bld) 2 % High NINF - 0 % [facility] Basophilic stippling LM Ql (Bld) Slight Abnormal (none) [facility] Lymphocytes (Bld) [#/Vol] 0.2 10*3/uL Low 1.0 - 4.3 10*3/uL [facility] Lymphocytes/100 WBC (Bld) 7 % Low 15 - 45 % [facility] Microcytes Ql (Bld) Slight Abnormal (none) [facility] Monocytes (Bld) [#/Vol] 0 10*3/uL 0.0 - 0.9 10*3/uL [facility] Monocytes/100 WBC (Bld) 0 % Low 5 - 13 % [facility] Neutrophils (Bld) [#/Vol] 2.3 10*3/uL 1.8 - 7.5 10*3/uL [facility] Polychromasia LM Ql (Bld) Slight Abnormal (none) [facility] RBC morphology finding Nom (Bld) abnormal [facility] Segmented neutrophils/100 WBC (Bld) 91 % High 38 - 82 % [facility] Laboratory - Hematology and Cell countsOrdered By: Laurel Alva on 08-13-2024 Hemoglobin (Bld) [Mass/Vol] 9.2 g/dL Low 11.7 - 16.0 g/dL [facility] MAGNESIUMon 08-13-2024 Magnesium [Mass/Vol] 1.5 mg/dL Low 1.6-2.3 [facility] Comment on above: Performed By: #### L AB15, [id number], [id number] ####[employer]er: MARY SOTELO ([id number])[address] MANUAL DIFFERENTIAL (CELLAVI ESPINOZA)on 08-13-2024 ANISOCYTOSIS PRESENCE IN BLOOD BY LIGHT MICROSCOPY Slight Abnormal (none) [facility] Comment on above: Performed By: #### L [id number], [id number] ####D[employer] D[employer] Mixer: MARY SOTELO ([id number])[facility])[address] [place] [address] BAND NEUTROPHILS TOTAL PER COUNTED LEUKOCYTES BY MANUAL COUNT 2 Normal [facility] Comment on above: Performed By: #### L [id number], [id number] ####Doughnut Dough Mixer: MARY SOTELO ([id number])[facility])[address] [place] [address] [place] BANDS (10*3/UL) IN BLOOD-CELLAVISION 0.1 10*3/uL High <=0.0 [facility] Comment on above: Performed By: #### L [id number], [id number] ####Doughnut Dough Mixer: MARY SOTELO ([id number])[facility])[address] [place] [address] BASOPHILIC STIPPLING PRESENCE IN BLOOD BY LIGHT MICROSCOPY Slight Abnormal (none) [facility] Comment on above: Performed By: #### L [id number], [id number] ####Doughnut Dough Mixer: MARY SOTELO ([id number])[facility] ([facility])[address] [place] [address] BASOPHILS TOTAL PER COUNTED LEUKOCYTES BY MANUAL COUNT Normal [facility] Comment on above: Performed By: #### Dora [id number], [id number] ####Doughnut Dough Mixer: MARY SOTELO ([id number])[facility] ([facility])[address] [place] [address] BLASTS TOTAL PER COUNTED LEUKOCYTES BY MANUAL COUNT Normal [facility] Comment on above: Performed By: #### L [id number], [id number] ####Doughnut Dough Mixer: MARY SOTELO ([id number])[facility] ([facility])[address] [place] [address] EOSINOPHILS TOTAL PER COUNTED LEUKOCYTES BY MANUAL COUNT Normal [facility] Comment on above: Performed By: #### L [id number], [id number] ####Doughnut Dough Mixer: MARY SOTELO ([id number])[facility] ([facility] [place] [address] [place] LYMPHOCYTES (10*3/UL) IN BLOOD-CELLAVISION 0.2 10*3/uL Low 1.0-4.3 [facility] Comment on above: Performed By: #### L [id number], [id number] ####Doughnut Dough Mixer: MARY SOTELO ([id number])[facility] [place] [address] [place] LYMPHOCYTES TOTAL PER COUNTED LEUKOCYTES BY MANUAL COUNT 7 Normal [facility] Comment on above: Performed By: #### L [id number], [id number] ####Doughnut Dough Mixer: MARY SOTELO ([id number])[facility] ([facility])[address] [place] [address] [place] LYMPHOCYTES/100 LEUKOCYTES IN BLOOD-CELLAVISION 7 % Low 15-45 [facility] Comment on above: Performed By: #### L [id number], [id number] ####Doughnut Dough Mixer: MARY SOTELO ([id number])[facility] [place] [address] [place] METAMYELOCYTES TOTAL PER COUNTED LEUKOCYTES BY MANUAL COUNT Normal [facility] Comment on above: Performed By: #### L [id number], [id number] ####Doughnut Dough Mixer: MARY SOTELO ([id number])[facility] ([facility])[address] [place] [address] MICROCYTES (PRESENCE) IN BLOOD BY LIGHT MICROSCOPY Slight Abnormal (none) [facility] Comment on above: Performed By: #### L [id number], [id number] ####Doughnut Dough Mixer: MARY SOTELO ([id number])[facility] [place] [address] [place] MONOCYTES (10*3/UL) IN BLOOD-CELLAVISION 0.0 10*3/uL Normal 0.0-0.9 [facility] Comment on above: Performed By: #### L [id number], [id number] ####Doughnut Dough Mixer: MARY SOTELO ([id number])[facility] [place] [address] [place] MONOCYTES TOTAL PER COUNTED LEUKOCYTES BY MANUAL COUNT 0 Normal [facility] Comment on above: Performed By: #### L [id number], [id number] ####Doughnut Dough Mixer: MARY SOTELO ([id number])[facility])[address] [place] [address] [place] MONOCYTES/100 LEUKOCYTES IN BLOOD-KACEY 0 % Low 5-13 [facility] Comment on above: Performed By: #### L [id number], [id number] ####Doughnut Dough Mixer: MARY SOTELO ([id number])[facility] ([facility])[address] [place] [address] [place] MYELOCYTES COUNTED BY MANUAL COUNT Normal [facility] Comment on above: Performed By: #### L [id number], [id number] ####Doughnut Dough Mixer: MARY SOTELO ([id number])[facility] ([facility])[address] [place] [address] [place] NEUTROPHILS BAND FORM/100 LEUKOCYTES IN BLOOD-CELLAVISI 2 % High <=0 [facility] Comment on above: Performed By: #### L [id number], [id number] ####Doughnut Dough Mixer: MARY SOTELO ([id number])[facility] ([facility])[address] [place] [address] NEUTROPHILS TOTAL PER COUNTED LEUKOCYTES BY MANUAL COUNT 90 Normal [facility] Comment on above: Performed By: #### L [id number], [id number] ####Doughnut Dough Mixer: MARY SOTELO ([id number])[facility] [place] [address] POLYCHROMASIA IN BLOOD BY LIGHT MICROSCOPY Slight Abnormal (none) [facility] Comment on above: Performed By: #### L [id number], [id number] ####Doughnut Dough Mixer: MARY SOTELO ([id number])[facility] ([facility])[address] [place] [address] PROMYELOCYTES TOTAL PER COUNTED LEUKOCYTES BY MANUAL COUNT Normal [facility] Comment on above: Performed By: #### L [id number], [id number] ####Doughnut Dough Mixer: MARY SOTELO ([id number])[facility] ([facility])[address] [place] [address] [place] RBC MORPHOLOGY IN BLOOD abnormal Normal [facility] Comment on above: Performed By: #### L [id number], [id number] ####Doughnut Dough Mixer: MARY SOTELO ([id number])[facility])[address] [place] [address] [place] SEGMENTED NEUTROPHILS (10*3/UL) IN BLOOD-CELLAVISION 2.3 10*3/uL Normal 1.8-7.5 [facility] Comment on above: Performed By: #### L [id number], [id number] ####Doughnut Dough Mixer: MARY SOTELO ([id number])[facility] ([facility])[address] [place] [address] SEGMENTED NEUTROPHILS/100 LEUKOCYTES-CE 91 % High 38-82 [facility] Comment on above: Performed By: #### L [id number], [id number] ####Doughnut Dough Mixer: MARY SOTELO ([id number])[facility] ([facility])[address] [place] [address] UNCLASSIFIED CELLS TOTAL PER COUNTED LEUKOCYTES BY MANUAL COUNT [facility] Comment on above: Performed By: #### L [id number], [id number] ####Doughnut Dough Mixer: MARY SOTELO ([id number])[facility] ([facility])[address] [place] [address] VARIANT LYMPHOCYTES TOTAL PER COUNTED LEUKOCYTES BY MANUAL COUNT Normal [facility] Comment on above: Performed By: #### L [id number], [id number] ####Doughnut Dough Mixer: MARY SOTELO ([id number])[facility])[address] [place] [address] No Panel Informationon 08-13 Interpretation and review of laboratory results Abnormal [facility] Interpretation and review of laboratory results Abnormal [facility] Interpretation and review of laboratory results Abnormal [facility] Interpretation and review of laboratory results Abnormal [facility] Interpretation and review of laboratory results Normal [facility] Interpretation and review of laboratory results Abnormal [facility] Interpretation and review of laboratory results Abnormal [facility] Interpretation and review of laboratory results Abnormal [facility] Source Of Oxygen 30[facility] Interpretation and review of laboratory results Abnormal [facility] Bands Manual 2 [facility] Lymphocytes Manual 7 [facility] Monocytes Manual 0 [facility]th Neutrophils Manual 90 [facility] No Panel InformationOrdered By: Tanisha Main on 08-13-2024 Interpretation and review of laboratory results Abnormal [facility] mecA/C (MRSE/MRSL) Detected Abnormal Not Detected [facility] Staphylococcus epidermidis Detected Abnormal Not Detected [facility] Nursing Noteon 08-13-2024 Nursing Note Normal [facility] PHOSPHORUSon 08-13-2024 Phosphate [Mass/Vol] 3.0 mg/dL Normal 2.5-4.5 [facility] Comment on above: Performed By: #### L AB15, [id number], [id number] ####Doughnut Dough Mixer: MARY SOTELO ([id number])[facility])[address] [place] [address] PROTIME AND APTTon aPTT Coag (Bld) [Time] 29.6 s Normal 20.0-30.5 [facility] Comment on above: Performed By: #### L [id number] ####Doughnut Dough Mixer: MARY SOTELO ([id number])[facility] ([facility])[address] [place] [address] INR Coag (PPP) [Relative time] 1.0 {INR} Normal 0.9-1.1 [facility] Comment on above: Result Comment: Elias [...] prevent Myocardial Infarction Performed By: #### L [id number] ####Doughnut Dough Mixer: MARY SOTELO ([id number])[facility] ([facility])[address] [place] [address] PT Coag (PPP) [Time] 11.6 s Normal 9.0-12.0 [facility] Comment on above: Performed By: #### L [id number] ####Doughnut Dough Mixer: MARY SOTELO ([id number])[facility] [address] Progress Noteon 08-13-2024 Progress Note Chart reviewed, as I was notified via Epic of patient's readmission to [facility] yesterday (08/12) with altered mental status. Closing patient's transitional program at this time d/t her readmission. Normal [facility] Progress Note Normal [facility] Progress Note Normal [facility] RESPIRATORY PATHOGENS PANEL BY PCRon 08-13-2024 RESPIRATORY PATHOGENS PANEL BY PCR Normal [facility] Comment on above: Performed By: #### L [id number] ####Doughnut Dough Mixer: MARY SOTELO ([id number])[facility] ([facility])[address] [place] [address] Respiratory pathogens DNA an d RNA panel MARISA+non-probe (Nph)on 08-13-2024 Adenovirus Not detected Not Detected [facility] B. pertussis DNA MARISA+probe Ql (Unsp spec) Not detected Not Detected [facility] Bordetella parapertussis Not detected Not Detected [facility] Chlamydia pneumoniae Not detected Not Detected [facility] Coronavirus 229E Not detected Not Detected [facility] Coronavirus HKU1 Not detected Not Detected [facility] Coronavirus NL63 Not detected Not Detected [facility] Coronavirus OC43 Not detected Not Detected [facility] FLUAV RNA MARISA+non-probe Ql (Nph) Not detected Not Detected [facility] FLUBV RNA MARISA+non-probe Ql (Nph) Not detected Not Detected [facility] Human Metapneumovirus Not detected Not Detected [facility] Human Rhinovirus/Enterovirus Not detected Not Detected [facility] Interpretation and review of laboratory results Normal [facility] Mycoplasma pneumoniae Not detected Not Detected [facility] Parainfluenza 1 Not detected Not Detected [facility] Parainfluenza 2 Not detected Not Detected [facility] Parainfluenza 3 Not detected Not Detected [facility] Parainfluenza 4 Not detected Not Detected [facility] Respiratory Syncytial Virus Not detected Not Detected [facility] SARS-CoV-2 (COVID-19) RNA MARISA+non-probe Ql (Nph) Not detected Not Detected [facility] TROPONIN Ion 08-13-2024 Troponin I.cardiac [Mass/Vol] 0.074 ng/mL High <0.034 [facility] Comment on above: Result Comment: ORDE R COMMENTS:Patients with high levels of Biotin oral intake (ie >5 mg/day) may have falsely decreased Troponin levels. Performed By: #### L [id number] ####Doughnut Dough Mixer: MARY SOTELO ([id number])[facility])[address] [place] [address] [place] Troponin I.cardiac [Mass/Vol] 0.070 ng/mL High <0.034 [facility] Comment on above: Result Comment: ORDE R COMMENTS:Patients with high levels of Biotin oral intake (ie >5 mg/day) may have falsely decreased Troponin levels. Performed By: #### L [id number] ####Doughnut Dough Mixer: MARY SOTELO ([id number])[address] Troponin I.cardiac [Mass/Vol] 0.073 ng/mL High <0.034 [facility] Comment on above: Result Comment: ORDE R COMMENTS:Patients with high levels of Biotin oral intake (ie >5 mg/day) may have falsely decreased Troponin levels. Performed By: #### L [id number] ####Doughnut Dough Mixer: MARY SOTELO ([id number])[address] TROPONIN, WITH SERIAL REFLEX on 08-13-2024 Troponin I.cardiac [Mass/Vol] 0.065 ng/mL High <0.034 [facility] Comment on above: Result Comment: ORDMari R COMMENTS:Patients with high levels of Biotin oral intake (ie >5 mg/day) may have falsely decreased Troponin levels. Performed By: #### L AB89, [id number], [id number], [id number] ####Doughnut Dough Mixer: MARY SOTELO ([id number])[facility])[address] [place] [address] [place] Troponin I.cardiac [Mass/Vol ]on 08-13-2024 Interpretation and review of laboratory results Abnormal [facility] Interpretation and review of laboratory results Abnormal [facility] Interpretation and review of laboratory results Abnormal [facility] Interpretation and review of laboratory results Abnormal [facility] URINE CULTUREon 08-13-2024 Bacteria identified Cx Nom (U) Normal [facility] Comment on above: Performed By: #### L [id number] ####Doughnut Dough Mixer: MARY SOTELO ([id number])[facility] [place] [address] Urinalysis complete panel (U )on 08-13-2024 Bacteria LM.HPF (Urine sed) [#/Area] Few Abnormal Negative /HPF [facility] Bilirubin Ql (U) Negative Negative mg/dL [facility] Clarity (U) Extra Turbid Abnormal [facility] (U) Yellow Lt. Yellow [facility] Epithelial cells.squamous LM.HPF (Urine sed) [#/Area] 0-2 [facility] h Glucose Ql (U) Normal Normal (<70) mg/dL [facility] Hemoglobin Ql (U) 0.2 mg/dL Abnormal Negative [facility] Interpretation and review of laboratory results Abnormal [facility] Ketones (U) [Mass/Vol] Trace Abnormal Negat pawan mg/dL [facility] Leukocyte clumps LM.HPF (Urine sed) [#/Area] Occasional Abnormal Negative /HPF [facility] Leukocyte esterase Test strip Ql (U) 500 Abnormal Negative Bere/uL [facility] Mucus LM.HPF (Urine sed) [#/Area] Few Negative /LPF [facility] Nitrite Ql (U) Negative Negative [facility] th Non-Squamous Epithalial Cells, Urine 0-2 Abnormal Negative /HPF [facility] pH (U) 5.5 [pH] 5.0 - 8.0 pH [facility] Protein (U) [Mass/Vol] 100 mg/dL Abnormal Negative [facility] RBC LM.HPF (Urine sed) [#/Area] 11-25 Abnormal [facility] Specific gravity (U) [Rel density] 1.021 1.005 - 1.030 [facility] Urobilinogen (U) [Mass/Vol] Normal Normal (0-1) mg/dL [facility] WBC LM.HPF (Urine sed) [#/Area] /[HPF] Abnormal [facility] Yeast.budding LM.HPF (Urine sed) [#/Area] Many Abnormal Negative /HPF [facility] BASIC METABOLIC PANELon 10--2023 Anion gap [Moles/Vol] 4 mmol/L Normal 3-13 [facility] Comment on above: Performed By: #### L [id number], LAB15, [id number] ####Doughnut Dough Mixer: MARY SOTELO ([id number])[facility] ([facility])[address] [place] [address] Calcium [Mass/Vol] 6.6 mg/dL Low 8.4-10.4 [facility] Comment on above: Performed By: #### L [id number], LAB15, [id number] ####Doughnut Dough Mixer: MARY SOTELO ([id number])[facility] ([facility])[address] [place] [address] Chloride [Moles/Vol] 100 mmol/L Normal 98-107 [facility] Comment on above: Performed By: #### L [id number], LAB15, [id number] ####Doughnut Dough Mixer: MARY SOTELO ([id number])[facility] ([facility])[address] [place] [address] CO2 [Moles/Vol] 28 mmol/L Normal 22-30 [facility] Comment on above: Performed By: #### L [id number], LAB15, [id number] ####Doughnut Dough Mixer: MARY SOTELO ([id number])[facility] ([facility])[address] [place] [address] Creatinine [Mass/Vol] 2.38 mg/dL High 0.52-1.04 [facility] Comment on above: Performed By: #### L [id number], LAB15, [id number] ####Doughnut Dough Mixer: MARY SOTELO ([id number])[facility])[address] [place] [address] [place] GLOMERULAR FILTRATION RATE ML/MIN/1.73 SQ M.PREDICTED 22.3 mL/min/1.73m*2 Low >60.0 [facility] Comment on above: Result Comment: Calc ulation based on the Chronic Kidney Disease Epidemiology Collaboration (CKD-EPI) equation refit without adjustment for race Performed By: #### L [id number], LAB15, [id number] ####Doughnut Dough Mixer: MARY SOTELO ([id number])[facility])[address] [place] [address] Glucose [Mass/Vol] 229 mg/dL High 70-100 [facility] Comment on above: Performed By: #### L [id number], LAB15, [id number] ####Doughnut Dough Mixer: MARY SOTELO ([id number])[facility] ([facility])[address] [place] [address] Potassium [Moles/Vol] 3.6 mmol/L Normal 3.5-5.1 [facility] Comment on above: Performed By: #### L [id number], LAB15, [id number] ####Doughnut Dough Mixer: MARY SOTELO ([id number])[facility])[address] [place] [address] Sodium [Moles/Vol] 132 mmol/L Low 135-145 [facility] Comment on above: Performed By: #### L [id number], LAB15, [id number] ####Doughnut Dough Mixer: MARY SOTELO ([id number])[facility])[address] [place] [address] Urea nitrogen [Mass/Vol] 19 mg/dL High 7-17 [facility] Comment on above: Performed By: #### L [id number], LAB15, [id number] ####Doughnut Dough Mixer: MARY SOTELO ([id number])[facility])[address] [place] [address] BLOOD CULTUREon 08-12-2024 Bacteria identified Cx Nom (Bld) Normal [facility] Comment on above: Performed By: #### L [id number] ####Doughnut Dough Mixer: MARY SOTELO ([id number])[facility])[address] [place] [address] Performed By: #### L [id number], [id number] ####Doughnut Dough Mixer: MARY SOTELO ([id number])[facility] ([facility])[address] [place] [address] BLOOD CULTURE IDENTIFICATION - AEROBICon 08-12-2024 BLOOD CULTURE IDENTIFICATION - AEROBIC Normal [facility] Comment on above: Performed By: #### L [id number], [id number] ####Doughnut Dough Mixer: MARY SOTELO ([id number])[facility] ([facility])[address] [place] [address] BLOOD GAS, VENOUSon 08-12-20 24 Base excess Calc (BldV) [Moles/Vol] -2.5000 mmol/L Normal -3.0-3.0 [facility] Comment on above: Performed By: #### L [id number] ####Doughnut Dough Mixer: MARY SOTELO ([id number])[facility] ([facility])[address] [place] [address] CO2 [Moles/Vol] 26.1 mmol/L Normal 24.0-28.0 [facility] Comment on above: Performed By: #### L AB79 ####Doughnut Dough Mixer: MARY SOTELO ([id number])[facility] ([facility])[address] [place] [address] HCO3 (Bld) [Moles/Vol] 24.5 mmol/L Normal 23.0-27.0 [facility] Comment on above: Performed By: #### L AB79 ####Doughnut Dough Mixer: MARY SOTELO ([id number])[facility] ([facility])[address] [place] [address] Hemoglobin (Bld) [Mass/Vol] 9.6 g/dL Normal Screen only [facility] Comment on above: Performed By: #### L AB79 ####Doughnut Dough Mixer: MARY SOTELO ([id number])[facility])[address] [place] [address] OXYGEN (MM HG) IN VENOUS BLOOD 57.8 mm Hg Normal [facility] Comment on above: Performed By: #### L AB79 ####Doughnut Dough Mixer: MARY SOTELO ([id number])[facility] ([facility])[address] [place] [address] OXYGEN SATURATION (%) IN VENOUS BLOOD 89.0 % Normal [facility] Comment on above: Performed By: #### L AB79 ####Doughnut Dough Mixer: MARY SOTELO ([id number])[facility])[address] [place] [address] PCO2, ROHIT 53.4 mm Hg Normal 40.0-55.0 [facility] Comment on above: Performed By: #### L AB79 ####Doughnut Dough Mixer: MARY SOTELO ([id number])[facility])[address] [place] [address] PH VENOUS 7.279 Low 7.330-7.430 [facility] Comment on above: Performed By: #### L AB79 ####Doughnut Dough Mixer: MARY SOTELO ([id number])[address] SOURCE OF OXYGEN 30% Oxygen Normal [facility] Comment on above: Result Comment: BINA Olivarez COMMENTS:Assessment of oxygenation is best done with an arterial blood gas determination. Reference ranges for pO2, bicarbonate, and base excess are for mixed venous blood. Specimens drawn from a peripheral vein will often have higher values. Performed By: #### L AB79 ####Doughnut Dough Mixer: MARY SOTELO ([id number])[facility] ([facility])[address] [place] [address] Base excess Calc (BldV) [Moles/Vol] -1.4000 mmol/L Normal -3.0-3.0 [facility] Comment on above: Performed By: #### L [id number] ####Doughnut Dough Mixer: MARY SOTELO ([id number])[facility] ([facility])[address] [place] [address] CO2 [Moles/Vol] 27.7 mmol/L Normal 24.0-28.0 [facility] Comment on above: Performed By: #### L [id number] ####Doughnut Dough Mixer: MARY SOTELO ([id number])[facility] ([facility])[address] [place] [address] HCO3 (Bld) [Moles/Vol] 25.9 mmol/L Normal 23.0-27.0 [facility] Comment on above: Performed By: #### L [id number] ####Doughnut Dough Mixer: MARY SOTELO ([id number])[facility])[address] [place] [address] Hemoglobin (Bld) [Mass/Vol] 7.7 g/dL Normal Screen only [facility] Comment on above: Performed By: #### L [id number] ####Doughnut Dough Mixer: MARY SOTELO ([id number])[facility])[address] [place] [address] OXYGEN (MM HG) IN VENOUS BLOOD 73.2 mm Hg Normal [facility] Comment on above: Performed By: #### L AB79 ####Doughnut Dough Mixer: MARY SOTELO ([id number])[facility])[address] [place] [address] OXYGEN SATURATION (%) IN VENOUS BLOOD 94.9 % Normal [facility] Comment on above: Performed By: #### L [id number] ####Doughnut Dough Mixer: MARY SOTELO ([id number])[facility])[address] [place] [address] PCO2, ROHIT 58.7 mm Hg High 40.0-55.0 [facility] Comment on above: Performed By: #### L AB79 ####Doughnut Dough Mixer: MARY SOTELO ([id number])[address] PH VENOUS 7.262 Low 7.330-7.430 [facility] Comment on above: Performed By: #### L AB79 ####Doughnut Dough Mixer: MARY SOTELO ([id number])[facility])[address] [place] [address] SOURCE OF OXYGEN Bi-PAP Normal [facility] Comment on above: Result Comment: BINA Olivarez [...] higher values. Performed By: #### L AB79 ####Doughnut Dough Mixer: MARY SOTELO ([id number])[facility])[address] [place] [address] Base excess Calc (BldV) [Moles/Vol] -0.7000 mmol/L Normal -3.0-3.0 [facility] Comment on above: Performed By: #### L AB79 ####Doughnut Dough Mixer: MARY SOTELO ([id number])[facility])[address] [place] [address] CO2 [Moles/Vol] 33.5 mmol/L High 24.0-28.0 [facility] Comment on above: Performed By: #### L AB79 ####Doughnut Dough Mixer: MARY SOTELO ([id number])[facility])[address] [place] [address] HCO3 (Bld) [Moles/Vol] 30.4 mmol/L High 23.0-27.0 [facility] Comment on above: Performed By: #### L AB79 ####Doughnut Dough Mixer: MARY SOTELO ([id number])[facility])[address] [place] [address] Hemoglobin (Bld) [Mass/Vol] 9.1 g/dL Normal Screen only [facility] Comment on above: Performed By: #### L [id number] ####Doughnut Dough Mixer: MARY SOTELO ([id number])[facility])[address] [place] [address] OXYGEN (MM HG) IN VENOUS BLOOD 44.4 mm Hg Normal [facility] Comment on above: Performed By: #### L AB79 ####Doughnut Dough Mixer: MARY SOTELO ([id number])[facility])[address] [place] [address] OXYGEN SATURATION (%) IN VENOUS BLOOD 74.5 % Normal [facility] Comment on above: Performed By: #### L AB79 ####Doughnut Dough Mixer: MARY SOTELO ([id number])[facility] ([facility])[address] [place] [address] PCO2, ROHIT 101.8 mm Hg High 40.0-55.0 [facility] Comment on above: Performed By: #### L [id number] ####D[employer]nut D[employer] Mixer: MARY SOTELO ([id number])[facility] ([facility])[address] [place] [address] PH VENOUS 7.093 Low 7.330-7.430 [facility] Comment on above: Performed By: #### L [id number] ####Doughnut D[employer] Mixer: MARY SOTELO ([phone])[facility] ([facility])[address] [place] [address] SOURCE OF OXYGEN Nasal cannula Normal [facility] Comment on above: Result Comment: 4 [...] a syringe. Performed By: #### L AB79 ####Doughnut Dough Mixer: MARY SOTELO ([id number])[facility] ([facility])[address] [place] [address] BLOOD TYPE AND SCREEN GELon 08-12-2024 ABO GROUPING O Normal [facility] Comment on above: Performed By: #### L [id number] ####Doughnut Dough Mixer: MARY SOTELO ([id number])[facility] ([facility])[address] [place] [address] RH TYPE IN BLOOD Positive Normal [facility] Comment on above: Performed By: #### L [id number] ####Doughnut Dough Mixer: MARY SOTELO ([phone])[facility] ([facility])[address] [place] [address] CBC WITH AUTO DIFFERENTIALon 08-12-2024 Basophils (Bld) [#/Vol] 0.0 10*3/uL Normal 0.0-0.2 [facility] Comment on above: Performed By: #### L [id number], [id number] ####Doughnut Dough Mixer: MARY SOTELO ([phone])[address] Basophils/100 WBC (Bld) 0.8 % Normal 0.0-2.0 [facility] Comment on above: Performed By: #### L [id number], [id number] ####Doughnut Dough Mixer: MARY SOTELO ([id number])[facility])[address] [place] [address] Eosinophils (Bld) [#/Vol] 0.1 10*3/uL Normal 0.0-0.5 [facility] Comment on above: Performed By: #### L [id number], [id number] ####Doughnut Dough Mixer: MARY SOTELO ([id number])[address] Eosinophils/100 WBC (Bld) 2.9 % Normal 0.0-6.0 [facility] Comment on above: Performed By: #### Dora AB296, [id number] ####Doughnut Dough Mixer: MARY SOTELO ([id number])[address] Erythrocyte distribution width (RBC) [Ratio] 16.4 % High 11.5-15.0 [facility] Comment on above: Performed By: #### L [id number], [id number] ####Doughnut Dough Mixer: MARY SOTELO ([id number])[address] Hematocrit (Bld) [Volume fraction] 22.3 % Low 35.0-47.0 [facility] Comment on above: Performed By: #### L [id number], [id number] ####Doughnut Dough Mixer: MARY SOTELO ([id number])[address] Hemoglobin (Bld) [Mass/Vol] 6.9 g/dL Critically low 11.7-16.0 [facility] Comment on above: Performed By: #### L [id number], [id number] ####Doughnut Dough Mixer: MARY SOTELO ([id number])[facility])[address] [place] [address] IMMATURE GRANS % 0.5 % Normal 0.0-2.0 [facility] Comment on above: Performed By: #### Dora AB296, [id number] ####Doughnut Dough Mixer: MARY SOTELO ([id number])[facility])[address] [place] [address] IMMATURE GRANS ABSOLUTE 0.0 10*3/uL Normal <0.1 [facility] Comment on above: Performed By: #### L [id number], [id number] ####Doughnut Dough Mixer: MARY SOTELO ([id number])[facility])[address] [place] [address] IPF 4 Normal [facility] Comment on above: Performed By: #### Dora AB296, [id number] ####Doughnut Dough Mixer: MARY SOTELO ([id number])[facility])[address] [place] [address] Lymphocytes (Bld) [#/Vol] 0.6 10*3/uL Low 1.0-4.3 [facility] Comment on above: Performed By: #### L [id number], [id number] ####Doughnut Dough Mixer: MARY SOTELO ([id number])[facility])[address] [place] [address] Lymphocytes/100 WBC (Bld) 14.8 % Low 15.0-45.0 [facility] Comment on above: Performed By: #### L [id number], [id number] ####Doughnut Dough Mixer: MARY SOTELO ([id number])[facility])[address] [place] [address] MCH (RBC) [Entitic mass] 28.9 pg Normal 26.0-34.0 [facility] Comment on above: Performed By: #### L [id number], [id number] ####Doughnut Dough Mixer: MARY SOTELO ([id number])[facility])[address] [place] [address] MCHC 30.9 % Normal 30.5-36.0 [facility] Comment on above: Performed By: #### L [id number], [id number] ####Doughnut Dough Mixer: MARY SOTELO ([id number])[facility])[address] [place] [address] MCV (RBC) [Entitic vol] 93.3 fL Normal 77.0-99.0 [facility] Comment on above: Performed By: #### L [id number], [id number] ####Doughnut Dough Mixer: MARY SOTELO ([id number])[facility])[address] [place] [address] Monocytes (Bld) [#/Vol] 0.2 10*3/uL Normal 0.0-0.9 [facility] Comment on above: Performed By: #### Dora AB296, [id number] ####Doughnut Dough Mixer: MARY SOTELO ([id number])[facility])[address] [place] [address] Monocytes/100 WBC (Bld) 5.0 % Normal 5.0-13.0 [facility] Comment on above: Performed By: #### L [id number], [id number] ####Doughnut Dough Mixer: MARY SOTELO ([id number])[facility])[address] [place] [address] NEUTROPHILS ABSOLUTE 2.9 10*3/uL Normal 1.8-7.5 [facility] Comment on above: Performed By: #### L [id number], [id number] ####Doughnut Dough Mixer: MARY SOTELO ([id number])[facility])[address] [place] [address] Neutrophils/100 WBC (Bld) 76.0 % Normal 38.0-82.0 [facility] Comment on above: Performed By: #### L [id number], [id number] ####Doughnut Dough Mixer: MARY SOTELO ([id number])[facility] ([facility])[address] [place] [address] NRBC 0.0 /100 WBCs Normal 0.0-2.0 [facility] Comment on above: Performed By: #### L [id number], [id number] ####Doughnut Dough Mixer: MARY SOTELO ([id number])[facility] ([facility])[address] [place] [address] Platelet mean volume (Bld) [Entitic vol] 10.6 fL Normal 9.0-12.7 [facility] Comment on above: Performed By: #### L [id number], [id number] ####Doughnut Dough Mixer: MARY SOTELO ([id number])[facility] ([facility])[address] [place] [address] Platelets (Bld) [#/Vol] 85 10*3/uL Low 140-440 [facility] Comment on above: Performed By: #### L [id number], [id number] ####Doughnut Dough Mixer: MARY SOTELO ([id number])[facility] ([facility])[address] [place] [address] RBC (Bld) [#/Vol] 2.39 10*6/uL Low 3.80-5.20 [facility] Comment on above: Performed By: #### L [id number], [id number] ####Doughnut Dough Mixer: MARY SOTELO ([id number])[facility] ([facility])[address] [place] [address] WBC (Bld) [#/Vol] 3.8 10*3/uL Normal 3.6-10.7 [facility] Comment on above: Performed By: #### L [id number], [id number] ####Doughnut Dough Mixer: MARY SOTELO ([id number])[facility])[address] [place] [address] Basophils (Bld) [#/Vol] 0.0 10*3/uL Normal 0.0-0.2 [facility] Comment on above: Performed By: #### L [id number] ####Doughnut Dough Mixer: MARY SOTELO ([id number])[facility])[address] [place] [address] Basophils/100 WBC (Bld) 0.8 % Normal 0.0-2.0 [facility] Comment on above: Performed By: #### L [id number] ####Doughnut Dough Mixer: MARY SOTELO ([id number])[facility])[address] [place] [address] Eosinophils (Bld) [#/Vol] 0.1 10*3/uL Normal 0.0-0.5 [facility] Comment on above: Performed By: #### L [id number] ####Doughnut Dough Mixer: MARY SOTELO ([id number])[facility])[address] [place] [address] Eosinophils/100 WBC (Bld) 2.5 % Normal 0.0-6.0 [facility] Comment on above: Performed By: #### L [id number] ####Doughnut Dough Mixer: MARY SOTELO ([id number])[address] Erythrocyte distribution width (RBC) [Ratio] 16.5 % High 11.5-15.0 [facility] Comment on above: Performed By: #### L [id number] ####Doughnut Dough Mixer: MARY SOTELO ([id number])[address] Hematocrit (Bld) [Volume fraction] 26.5 % Low 35.0-47.0 [facility] Comment on above: Performed By: #### L [id number] ####Doughnut Dough Mixer: MARY SOTELO ([id number])[address] Hemoglobin (Bld) [Mass/Vol] 7.9 g/dL Low 11.7-16.0 [facility] Comment on above: Performed By: #### L [id number] ####Doughnut Dough Mixer: MARY SOTELO ([id number])[facility])[address] [place] [address] IMMATURE GRANS % 0.6 % Normal 0.0-2.0 [facility] Comment on above: Performed By: #### L [id number] ####Doughnut Dough Mixer: MARY SOTELO ([id number])[facility])[address] [place] [address] IMMATURE GRANS ABSOLUTE 0.0 10*3/uL Normal <0.1 [facility] Comment on above: Performed By: #### L [id number] ####Doughnut Dough Mixer: MARY SOTELO ([id number])[facility])[address] [place] [address] IPF 5 Normal [facility] Comment on above: Performed By: #### L [id number] ####Doughnut Dough Mixer: AMRY SOTELO ([id number])[facility])[address] [place] [address] Lymphocytes (Bld) [#/Vol] 1.3 10*3/uL Normal 1.0-4.3 [facility] Comment on above: Performed By: #### L [id number] ####Doughnut Dough Mixer: MARY SOTELO ([id number])[facility])[address] [place] [address] Lymphocytes/100 WBC (Bld) 27.1 % Normal 15.0-45.0 [facility] Comment on above: Performed By: #### L [id number] ####Doughnut Dough Mixer: MARY SOTELO ([id number])[facility])[address] [place] [address] MCH (RBC) [Entitic mass] 28.4 pg Normal 26.0-34.0 [facility] Comment on above: Performed By: #### L [id number] ####Doughnut Dough Mixer: MARY SOTELO ([id number])[facility])[address] [place] [address] MCHC 29.8 % Low 30.5-36.0 [facility] Comment on above: Performed By: #### L [id number] ####Doughnut Dough Mixer: MARY SOTELO ([id number])[facility] ([facility])[address] [place] [address] MCV (RBC) [Entitic vol] 95.3 fL Normal 77.0-99.0 [facility] Comment on above: Performed By: #### L [id number] ####Doughnut Dough Mixer: MARY SOTELO ([id number])[facility] ([facility])[address] [place] [address] Monocytes (Bld) [#/Vol] 0.6 10*3/uL Normal 0.0-0.9 [facility] Comment on above: Performed By: #### L [id number] ####Doughnut Dough Mixer: MARY SOTELO ([id number])[facility])[address] [place] [address] Monocytes/100 WBC (Bld) 13.4 % High 5.0-13.0 [facility] Comment on above: Performed By: #### L [id number] ####Doughnut Dough Mixer: MARY SOTELO ([id number])[facility] ([facility])[address] [place] [address] NEUTROPHILS ABSOLUTE 2.7 10*3/uL Normal 1.8-7.5 [facility] Comment on above: Performed By: #### L [id number] ####Doughnut Dough Mixer: MARY SOTELO ([id number])[facility])[address] [place] [address] Neutrophils/100 WBC (Bld) 55.6 % Normal 38.0-82.0 [facility] Comment on above: Performed By: #### L [id number] ####Doughnut Dough Mixer: MARY SOTELO ([id number])[facility])[address] [place] [address] NRBC 0.0 /100 WBCs Normal 0.0-2.0 [facility] Comment on above: Performed By: #### L [id number] ####Doughnut Dough Mixer: MARY SOTELO ([id number])[facility] [place] [address] Platelet mean volume (Bld) [Entitic vol] 11.3 fL Normal 9.0-12.7 [facility] Comment on above: Performed By: #### L [id number] ####Doughnut Dough Mixer: MARY SOTELO ([id number])[facility] ([facility])[address] [place] [address] Platelets (Bld) [#/Vol] 89 10*3/uL Low 140-440 [facility] Comment on above: Performed By: #### L [id number] ####Doughnut Dough Mixer: MARY SOTELO ([id number])[facility] ([facility])[address] [place] [address] RBC (Bld) [#/Vol] 2.78 10*6/uL Low 3.80-5.20 [facility] Comment on above: Performed By: #### L [id number] ####Doughnut Dough Mixer: MARY SOTELO ([id number])[facility] ([facility])[address] [place] [address] WBC (Bld) [#/Vol] 4.8 10*3/uL Normal 3.6-10.7 [facility] Comment on above: Performed By: #### L [id number] ####Doughnut Dough Mixer: MARY SOTELO ([id number])[facility] ([facility])[address] [place] [address] COMPREHENSIVE METABOLIC PANE [place] 08-12-2024 Albumin [Mass/Vol] 2.9 g/dL Low 3.5-5.0 [facility] Comment on above: Performed By: #### L [id number] ####Doughnut Dough Mixer: MARY SOTELO ([id number])[facility])[address] [place] [address] ALP [Catalytic activity/Vol] 52 U/L Normal 38-126 [facility] Comment on above: Performed By: #### L [id number] ####Doughnut Dough Mixer: MARY SOTELO ([id number])[facility] ([facility])[address] [place] [address] ALT [Catalytic activity/Vol] 13 U/L Normal 0-34 [facility] Comment on above: Performed By: #### L [id number] ####Doughnut Dough Mixer: MARY SOTELO ([id number])[facility] ([facility])[address] [place] [address] Anion gap [Moles/Vol] 7 mmol/L Normal 3-13 [facility] Comment on above: Performed By: #### L [id number] ####Doughnut Dough Mixer: MARY SOTELO ([id number])[facility] ([facility])[address] [place] [address] AST [Catalytic activity/Vol] 18 U/L Normal 15-46 [facility] Comment on above: Performed By: #### L AB17 ####Doughnut Dough Mixer: MARY SOTELO ([id number])[facility] ([facility])[address] [place] [address] Bilirubin [Mass/Vol] 0.9 mg/dL Normal 0.2-1.3 [facility] Comment on above: Performed By: #### L AB17 ####Doughnut Dough Mixer: MARY SOTELO ([id number])[facility] ([facility])[address] [place] [address] Calcium [Mass/Vol] 6.9 mg/dL Low 8.4-10.4 [facility] Comment on above: Performed By: #### L AB17 ####Doughnut Dough Mixer: MARY SOTELO ([id number])[facility] ([facility])[address] [place] [address] [place] Chloride [Moles/Vol] 100 mmol/L Normal 98-107 [facility] Comment on above: Performed By: #### L AB17 ####Doughnut Dough Mixer: MARY SOTELO ([id number])[facility] ([facility])[address] [place] [address] [place] CO2 [Moles/Vol] 22 mmol/L Normal 22-30 [facility] Comment on above: Performed By: #### L AB17 ####Doughnut Dough Mixer: MARY SOTELO ([id number])[facility] ([facility])[address] [place] [address] Creatinine [Mass/Vol] 2.56 mg/dL High 0.52-1.04 [facility] Comment on above: Performed By: #### L AB17 ####Doughnut Dough Mixer: MARY SOTELO ([id number])[facility] ([facility])[address] [place] [address] GLOMERULAR FILTRATION RATE ML/MIN/1.73 SQ M.PREDICTED 20.4 mL/min/1.73m*2 Low >60.0 [facility] Comment on above: Result Comment: Calc ulation based on the Chronic Kidney Disease Epidemiology Collaboration (CKD-EPI) equation refit without adjustment for race Performed By: #### L AB17 ####Doughnut Dough Mixer: MARY SOTELO ([id number])[facility] ([facility])[address] [place] [address] Glucose [Mass/Vol] 220 mg/dL High 70-100 [facility] Comment on above: Performed By: #### L AB17 ####Doughnut Dough Mixer: MARY SOTELO ([id number])[facility] ([facility])[address] [place] [address] Potassium [Moles/Vol] 4.2 mmol/L Normal 3.5-5.1 [facility] Comment on above: Performed By: #### L AB17 ####Doughnut Dough Mixer: MARY SOTELO ([id number])[facility])[address] [place] [address] Protein [Mass/Vol] 5.2 g/dL Low 6.3-8.2 [facility] Comment on above: Performed By: #### L AB17 ####Doughnut Dough Mixer: MARY SOTELO ([id number])[facility])[address] [place] [address] Sodium [Moles/Vol] 130 mmol/L Low 135-145 [facility] Comment on above: Performed By: #### L AB17 ####Doughnut Dough Mixer: MARY SOTELO ([id number])[facility] ([facility])[address] [place] [address] Urea nitrogen [Mass/Vol] 20 mg/dL High 7-17 [facility] Comment on above: Performed By: #### L AB17 ####Doughnut Dough Mixer: MARY SOTELO ([id number])[facility] ([facility])[address] [place] [address] CT HEAD NECK ANGIO W AND WO IV CONTRASTon 08-12-2024 CT HEAD NECK ANGIO W AND WO IV CONTRAST Normal [facility] CT HEAD WO IV CONTRASTon CT HEAD WO IV CONTRAST Normal [facility] CT HEAD WO IV CONTRAST Normal [facility] CT Head WO contraston 2023 No [...] MD Electronically Signed Date/Time: 08/12/2024 8:18 AM [facility] [employer] [facility] 1960 [id number] Exam Date/Time: 08/11/2024 15:35 Procedure: CT HEAD [...] orbits and extracranial soft tissues are unremarkable. [facility] Reece Mckinley MD - 08/12/2024 Patient Name: [facility] DEN[facility] : 1960 [id number] Exam Date/Time: 08/11/2024 15:35 Procedure: CT HEAD [...] Electronically Signed Date/Time: 08/12/2024 8:18 AM EDT [employer] CT Head WO contrastOrdered B y: Reece Mckinley on 08-12-2024 [employer] Work Phone: CT PERFUSIONon 08-12-2024 CT PERFUSION Normal [facility] Consulton 08-12-2024 Consult Normal [facility] ECG 12-LEADon 08-12-2024 ECG 12-LEAD IMPRESSION: Sinus rhythm Consider left ventricular hypertrophy Electronically Signed On 08-12-2024 18:40:59 EDT by Fabrizio Guillory Normal [facility] ED Nursing Noteon 08-12-2024 ED Nursing Note Report given to T3 Juanis Jorge. Margret Doan RN 08/12/24 1634 Normal [facility] ED Nursing Note ICU at bedside. Clari Bronson RN 08/12/24 1517 Normal [facility] ED Provider Noteon ED Provider Note Normal [facility] FERRITINon 08-12-2024 Ferritin [Mass/Vol] 231 ng/mL Normal 11-264 [facility] Comment on above: Performed By: #### L AB69, LAB68, [id number], LAB67 ####[employer]er: MARY SOTELO ([id number])[facility] [place] [address] FOLATEon 08-12-2024 FOLATE RESULT 10.8 ng/mL Normal >=2.9 [facility] Comment on above: Performed By: #### L AB69, LAB68, [id number], LAB67 ####D[employer] D[employer]er: MARY SOTELO ([id number])[facility] [place] [address] [place] IDNon 08-12-2024 IDN Normal [facility] IRON AND TIBCon 08-12-2024 IRON BINDING CAPACITY 158 ug/dL Low [id number] [facility] Comment on above: Performed By: #### L [id number] ####D[employer] D[employer] Mixer: MARY SOTELO ([phone])[facility] ([facility])[address] [place] [address] IRON SATURATION 45 % Normal 15-50 [facility] Comment on above: Performed By: #### L [id number] ####D[employer]nut D[employer]er: MARY SOTELO ([id number])[facility] ([facility])[address] [place] [address] IRON, TOTAL 71 ug/dL Normal 37-170 [facility] Comment on above: Performed By: #### L [id number] ####D[employer]nut D[employer] Mixer: MARY SOTELO ([id number])[facility])[address] [place] [address] LACTIC ACID WITH REFLEXon Lactate [Moles/Vol] 1.6 mmol/L Normal 0.7-2.0 [facility] Comment on above: Performed By: #### L [id number] ####D[employer]er: MARY SOTELO ([id number])[facility])[address] [place] [address] NT PRO BNPon 08-12-2024 NT PRO BNP >61441 High <125 [facility] Comment on above: Performed By: #### L [id number], LAB15, [id number] ####D[employer]er: MARY SOTELO ([id number])[facility])[address] [place] [address] Nursing Noteon 08-12-2024 Nursing Note Normal [facility] RETICULOCYTESon 08-12-2024 Reticulocytes/100 RBC (Bld) 2.41 % Normal [facility] Comment on above: Result Comment: Newb orn < 5%Adults 0.4 - 2.0% Performed By: #### L [id number], [id number] ####D[employer]er: MARY SOTELO ([id number])[facility])[address] [place] [address] TROPONIN Ion 08-12-2024 Troponin I.cardiac [Mass/Vol] 0.052 ng/mL High <0.034 [facility] Comment on above: Result Comment: BINA Olivarez COMMENTS:Patients with high levels of Biotin oral intake (ie >5 mg/day) may have falsely decreased Troponin levels. Performed By: #### L AB69, LAB68, [id number], LAB67 ####D[employer]er: MARY SOTELO ([id number])[facility])[address] [place] [address] Troponin I.cardiac [Mass/Vol] 0.046 ng/mL High <0.034 [facility] Comment on above: Result Comment: BINA Olivarez COMMENTS:Patients with high levels of Biotin oral intake (ie >5 mg/day) may have falsely decreased Troponin levels. Performed By: #### L [id number] ####Doughnut Dough Mixer: MARY SOTELO ([id number])[facility])[address] [place] [address] TROPONIN, WITH SERIAL REFLEX on 08-12-2024 Troponin I.cardiac [Mass/Vol] 0.046 ng/mL High <0.034 [facility] Comment on above: Result Comment: BINA Olivarez COMMENTS:Patients with high levels of Biotin oral intake (ie >5 mg/day) may have falsely decreased Troponin levels. Performed By: #### L [id number], LAB15, [id number] ####Doughnut Dough Mixer: MARY SOTELO ([id number])[facility])[address] [place] [address] VITAMIN B12on 08-12-2024 Cobalamin (Vitamin B12) [Mass/Vol] 932 pg/mL High 239-931 [facility] Comment on above: Performed By: #### L AB69, LAB68, [id number], LAB67 ####Doughnut Dough Mixer: MARY SOTELO ([id number])[facility])[address] [place] [address] [place]Don 08-11-2024 [place] Patient Choice Patient Name: SANDY DENG Date of : 1960 Normal [facility] CT Head WO contraston 2023 Radiology Study observation (narrative) [facility] Progress Noteon 08-11-2024 Progress Note Normal [facility] BASIC METABOLIC PANELon Anion gap [Moles/Vol] 2 mmol/L Low 3-13 [facility] Comment on above: Performed By: #### L AB113, [id number], LAB15 ####Doughnut Dough Mixer: MARY SOTELO ([id number])[facility] [place] [address] Calcium [Mass/Vol] 6.6 mg/dL Low 8.4-10.4 [facility] Comment on above: Performed By: #### L AB113, [id number], LAB15 ####Doughnut Dough Mixer: MARY SOTELO ([id number])[facility] [place] [address] Chloride [Moles/Vol] 102 mmol/L Normal 98-107 [facility] Comment on above: Performed By: #### L AB113, [id number], LAB15 ####Doughnut Dough Mixer: MARY SOTELO ([id number])[facility] [place] [address] CO2 [Moles/Vol] 33 mmol/L High 22-30 [facility] Comment on above: Performed By: #### Dora AB113, [id number], LAB15 ####Doughnut Dough Mixer: MARY SOTELO ([id number])[facility] [place] [address] Creatinine [Mass/Vol] 2.85 mg/dL High 0.52-1.04 [facility] Comment on above: Performed By: #### L AB113, [id number], LAB15 ####Doughnut Dough Mixer: MARY SOTELO ([id number])[facility] ([facility])[address] [place] [address] [place] GLOMERULAR FILTRATION RATE ML/MIN/1.73 SQ M.PREDICTED 17.9 mL/min/1.73m*2 Low >60.0 [facility] Comment on above: Result Comment: Calc ulation based on the Chronic Kidney Disease Epidemiology Collaboration (CKD-EPI) equation refit without adjustment for race Performed By: #### L AB113, [id number], LAB15 ####Doughnut Dough Mixer: MARY SOTELO ([id number])[facility] [place] [address] [place] Glucose [Mass/Vol] 110 mg/dL High 70-100 [facility] Comment on above: Performed By: #### L AB113, [id number], LAB15 ####Doughnut Dough Mixer: MARY SOTELO ([id number])[facility] ([facility])[address] [place] [address] Potassium [Moles/Vol] 4.2 mmol/L Normal 3.5-5.1 [facility] Comment on above: Performed By: #### L AB113, [id number], LAB15 ####Doughnut Dough Mixer: MARY SOTELO ([id number])[facility] ([facility])[address] [place] [address] Sodium [Moles/Vol] 138 mmol/L Normal 135-145 [facility] Comment on above: Performed By: #### L AB113, [id number], LAB15 ####Doughnut Dough Mixer: MARY SOTELO ([id number])[facility] ([facility])[address] [place] [address] Urea nitrogen [Mass/Vol] 25 mg/dL High 7-17 [facility] Comment on above: Performed By: #### L AB113, [id number], LAB15 ####Doughnut Dough Mixer: MARY SOTELO ([id number])[facility] ([facility])[address] [place] [address] Basic metabolic 1998 panelon 08-10-2024 Anion gap [Moles/Vol] 2 mmol/L Low 3 - 13 mmol/L [facility] Calcium [Mass/Vol] 6.6 mg/dL Low 8.4 - 10. 4 mg/dL [facility] Chloride [Moles/Vol] 102 mmol/L 98 - 10 7 mmol/L [facility] CO2 [Moles/Vol] 33 mmol/L High 22 - 30 mmol/L [facility] Creatinine [Mass/Vol] 2.85 mg/dL High 0.52 - 1.04 mg/dL [facility] GFR/1.73 sq M.predicted (S/P/Bld) [Vol rate/Area] 17.9 mL/min Low - PINF [facility] Glucose [Mass/Vol] 110 mg/dL High 70 - 100 mg/dL [facility] Interpretation and review of laboratory results Abnormal [facility] Potassium [Moles/Vol] 4.2 mmol/L 3.5 - 5.1 mmol/L [facility] Sodium [Moles/Vol] 138 mmol/L 135 - 145 mmol/L [facility] Urea nitrogen [Mass/Vol] 25 mg/dL High 7 - 17 mg/dL [facility] C3, BLOODon 08-10-2024 C3, BLOOD 64 mg/dL Low 88-165 [facility] Comment on above: Performed By: #### L [id number], [id number] ####Doughnut Dough Mixer: MARLENY GUZMÁN ([id number])[facility] ([facility])[address] C4 COMPLEMENTon 08-10-2024 C4, BLOOD 13 mg/dL Low 14-44 [facility] Comment on above: Performed By: #### L AB151, [id number] ####Doughnut Dough Mixer: MARLENY GUZMÁN ([id number])[facility] ([facility])[address] CARECOORDon 08-10-2024 [place] Normal [facility] [place] Normal [facility] [place] Transportation set v ia cot through [facility] for today 08-10-24 @2pm to [facility]. TCC, RN, Aerodynamic Consultant, facility, Pt, and Pt's Jose notified. [facility] request. [facility] . Med team notified of auth and need discharge orders . Done. SW to arrange transport today . [facility] CBC W Auto Differential pane l (Bld)on 08-10-2024 Basophils (Bld) [#/Vol] 0.0 10*3/uL 0.0 - 0.2 10*3/uL [facility] Basophils/100 WBC (Bld) 0.2 % 0.0 - 2.0 % [facility] Eosinophils (Bld) [#/Vol] 0.3 10*3/uL 0.0 - 0.5 10*3/uL [facility] Eosinophils/100 WBC (Bld) 5.2 % 0.0 - 6.0 % [facility] Erythrocyte distribution width (RBC) [Ratio] 17.2 % High 11.5 - 15.0 % [facility] Hematocrit (Bld) [Volume fraction] 26.2 % Low 35.0 - 47.0 % [facility] Hemoglobin (Bld) [Mass/Vol] 7.8 g/dL Low 11.7 - 16.0 g/dL [facility] Immature granulocytes (Bld) [#/Vol] 0.1 10*3/uL High NINF - 0.1 10*3/uL [facility] Immature granulocytes/100 WBC (Bld) 0.8 % 0.0 - 2.0 % [facility] Interpretation and review of laboratory results Abnormal [facility] IPF 4 [facility] Lymphocytes (Bld) [#/Vol] 1.0 10*3/uL 1.0 - 4.3 10*3/uL [facility] Lymphocytes/100 WBC (Bld) 16.2 % 15.0 - 45.0 % [facility] MCH (RBC) [Entitic mass] 28.5 pg 26.0 - 34.0 pg [facility] MCHC (RBC) [Mass/Vol] 29.8 % Low 30.5 - 36.0 % [facility] MCV (RBC) [Entitic vol] 95.6 fL 77.0 - 99.0 fL [facility] Monocytes (Bld) [#/Vol] 0.4 10*3/uL 0.0 - 0.9 10*3/uL [facility] Monocytes/100 WBC (Bld) 6.2 % 5.0 - 13.0 % [facility] Neutrophils (Bld) [#/Vol] 4.3 10*3/uL 1.8 - 7.5 10*3/uL [facility] Neutrophils/100 WBC (Bld) 71.4 % 38.0 - 82.0 % [facility] [employer] Nucleated RBC/100 WBC (Bld) [Ratio] 0.0 % [facility] Platelet mean volume (Bld) [Entitic vol] 10.7 fL 9.0 - 12.7 fL [facility] Platelets (Bld) [#/Vol] 95 10*3/uL Low 140 - 440 10*3/uL [facility] RBC (Bld) [#/Vol] 2.74 10*6/uL Low 3.80 - 5.2 0 10*6/uL [facility] WBC (Bld) [#/Vol] 6.0 10*3/uL 3.6 - 10.7 10*3/uL [facility] CBC WITH AUTO DIFFERENTIALon 08-10-2024 Basophils (Bld) [#/Vol] 0.0 10*3/uL Normal 0.0-0.2 [facility] Comment on above: Performed By: #### L [id number] ####Doughnut Dough Mixer: MARY SOTELO ([id number])[facility])[address] [place] [address] Basophils/100 WBC (Bld) 0.2 % Normal 0.0-2.0 [facility] Comment on above: Performed By: #### L [id number] ####Doughnut Dough Mixer: MARY SOTELO ([id number])[facility])[address] [place] [address] Eosinophils (Bld) [#/Vol] 0.3 10*3/uL Normal 0.0-0.5 [facility] Comment on above: Performed By: #### L [id number] ####Doughnut Dough Mixer: MARY SOTELO ([id number])[facility])[address] [place] [address] Eosinophils/100 WBC (Bld) 5.2 % Normal 0.0-6.0 [facility] Comment on above: Performed By: #### L [id number] ####Doughnut Dough Mixer: MARY SOTELO ([id number])[facility])[address] [place] [address] Erythrocyte distribution width (RBC) [Ratio] 17.2 % High 11.5-15.0 [facility] Comment on above: Performed By: #### L [id number] ####Doughnut Dough Mixer: MARY SOTELO ([id number])[facility] ([facility])[address] [place] [address] Hematocrit (Bld) [Volume fraction] 26.2 % Low 35.0-47.0 [facility] Comment on above: Performed By: #### L [id number] ####Doughnut Dough Mixer: MARY SOTELO ([id number])[facility])[address] [place] [address] Hemoglobin (Bld) [Mass/Vol] 7.8 g/dL Low 11.7-16.0 [facility] Comment on above: Performed By: #### L [id number] ####Doughnut Dough Mixer: MARY SOTELO ([id number])[facility])[address] [place] [address] IMMATURE GRANS % 0.8 % Normal 0.0-2.0 [facility] Comment on above: Performed By: #### L [id number] ####Doughnut Dough Mixer: MARY SOTELO ([id number])[facility])[address] [place] [address] IMMATURE GRANS ABSOLUTE 0.1 10*3/uL High <0.1 [facility] Comment on above: Performed By: #### L [id number] ####Doughnut Dough Mixer: MARY SOTELO ([id number])[facility])[address] [place] [address] [place] IPF 4 Normal [facility] Comment on above: Performed By: #### L [id number] ####Doughnut Dough Mixer: MARY SOTELO ([id number])[facility] ([facility])[address] [place] [address] Lymphocytes (Bld) [#/Vol] 1.0 10*3/uL Normal 1.0-4.3 [facility] Comment on above: Performed By: #### L [id number] ####Doughnut Dough Mixer: MARY SOTELO ([id number])[facility])[address] [place] [address] [place] Lymphocytes/100 WBC (Bld) 16.2 % Normal 15.0-45.0 [facility] Comment on above: Performed By: #### L [id number] ####Doughnut Dough Mixer: MARY SOTELO ([id number])[facility])[address] [place] [address] MCH (RBC) [Entitic mass] 28.5 pg Normal 26.0-34.0 [facility] Comment on above: Performed By: #### L [id number] ####Doughnut Dough Mixer: MARY SOTELO ([id number])[facility])[address] [place] [address] MCHC 29.8 % Low 30.5-36.0 [facility] Comment on above: Performed By: #### L [id number] ####Doughnut Dough Mixer: MARY SOTELO ([id number])[facility])[address] [place] [address] MCV (RBC) [Entitic vol] 95.6 fL Normal 77.0-99.0 [facility] Comment on above: Performed By: #### L [id number] ####Doughnut Dough Mixer: MARY SOTELO ([id number])[facility])[address] [place] [address] Monocytes (Bld) [#/Vol] 0.4 10*3/uL Normal 0.0-0.9 [facility] Comment on above: Performed By: #### L [id number] ####Doughnut Dough Mixer: MARY SOTELO ([id number])[facility])[address] [place] [address] Monocytes/100 WBC (Bld) 6.2 % Normal 5.0-13.0 [facility] Comment on above: Performed By: #### L [id number] ####Doughnut Dough Mixer: MARY SOTELO ([id number])[facility])[address] [place] [address] NEUTROPHILS ABSOLUTE 4.3 10*3/uL Normal 1.8-7.5 [facility] Comment on above: Performed By: #### L [id number] ####Doughnut Dough Mixer: MARY SOTELO ([id number])[facility] ([facility])[address] [place] [address] Neutrophils/100 WBC (Bld) 71.4 % Normal 38.0-82.0 [facility] Comment on above: Performed By: #### L [id number] ####Doughnut Dough Mixer: MARY SOTELO ([id number])[facility] ([facility])[address] [place] [address] NRBC 0.0 /100 WBCs Normal 0.0-2.0 [facility] Comment on above: Performed By: #### L [id number] ####Doughnut Dough Mixer: MARY SOTELO ([id number])[facility] ([facility])[address] [place] [address] Platelet mean volume (Bld) [Entitic vol] 10.7 fL Normal 9.0-12.7 [facility] Comment on above: Performed By: #### L [id number] ####Doughnut Dough Mixer: MARY SOTELO ([id number])[facility] ([facility])[address] [place] [address] Platelets (Bld) [#/Vol] 95 10*3/uL Low 140-440 [facility] Comment on above: Performed By: #### L [id number] ####Doughnut Dough Mixer: MARY SOTELO ([id number])[facility] ([facility])[address] [place] [address] RBC (Bld) [#/Vol] 2.74 10*6/uL Low 3.80-5.20 [facility] Comment on above: Performed By: #### L [id number] ####Doughnut Dough Mixer: MARY SOTELO ([id number])[facility] ([facility])[address] [place] [address] [place] WBC (Bld) [#/Vol] 6.0 10*3/uL Normal 3.6-10.7 [facility] Comment on above: Performed By: #### L [id number] ####Doughnut Dough Mixer: MARY SOTELO ([id number])[facility] ([facility])[address] [place] [address] [place] GLUCOSE, RANDOMon 08-10-2024 Glucose [Mass/Vol] 61 mg/dL Low 70-100 [facility] Comment on above: Performed By: #### L [id number] ####Doughnut Dough Mixer: MARY SOTELO ([id number])[facility] [place] [address] [place] Glucose (Bld) [Mass/Vol]on 1 Glucose [Mass/Vol] 61 mg/dL Low 70 - 100 mg/dL [facility] Interpretation and review of laboratory results Abnormal [facility] IDNon 08-10-2024 IDN Normal [facility] Laboratory - Chemistry and C hemistry - challengeon 08-10-2024 Glucose [Mass/Vol] 119 mg/dL High 70 - 100 mg/dL [facility] Glucose [Mass/Vol] 109 mg/dL High 70 - 100 mg/dL [facility] Glucose [Mass/Vol] 102 mg/dL High 70 - 100 mg/dL [facility] Glucose [Mass/Vol] 96 mg/dL 70 - 100 mg/dL [facility] Glucose [Mass/Vol] 103 mg/dL High 70 - 100 mg/dL [facility] Glucose [Mass/Vol] 65 mg/dL Low 70 - 100 mg/dL [facility] Magnesium [Mass/Vol] 1.8 mg/dL 1.6 - 2 .3 mg/dL [facility] Laboratory - Hematology and Cell countson 08-10-2024 Complement C3 [Mass/Vol] 64 mg/dL Low 88 - 165 mg/dL [facility] Complement C4 [Mass/Vol] 13 mg/dL Low 14 - 44 mg/dL [facility] MAGNESIUMon 08-10-2024 Magnesium [Mass/Vol] 1.8 mg/dL Normal 1.6-2.3 [facility] Comment on above: Performed By: #### L [id number], [id number], LAB15 ####Doughnut Dough Mixer: MARY SOTELO ([id number])[facility] [place] [address] [place] No Panel Informationon 08-10 Interpretation and review of laboratory results Abnormal [facility] Interpretation and review of laboratory results Abnormal [facility] Interpretation and review of laboratory results Abnormal [facility] Interpretation and review of laboratory results Abnormal [facility] Interpretation and review of laboratory results Abnormal [facility] Interpretation and review of laboratory results Normal [facility] Interpretation and review of laboratory results Abnormal [facility] Interpretation and review of laboratory results Abnormal [facility] Interpretation and review of laboratory results Normal [facility] Nursing Noteon 08-10-2024 Nursing Note Report called to delores Syed at [facility]. This RN verified with Dr. Espana that pt is leaving with johnson catheter. Normal [facility] Nursing Note Normal [facility] PHOSPHORUSon 08-10-2024 Phosphate [Mass/Vol] 4.5 mg/dL Normal 2.5-4.5 [facility] Comment on above: Performed By: #### L AB113, [id number], LAB15 ####Doughnut Dough Mixer: MARY SOTELO ([id number])[facility] ([facility])[address] [place] [address] [place] Phosphate [Moles/Vol]on Phosphate [Mass/Vol] 4.5 mg/dL 2.5 - 4 .5 mg/dL [facility] Progress Noteon 08-10-2024 Progress Note Normal [facility] Progress Note Normal [facility] BASIC METABOLIC PANELon Anion gap [Moles/Vol] 1 mmol/L Low 3-13 [facility] Comment on above: Performed By: #### L AB113, [id number], LAB15 ####Doughnut Dough Mixer: MARY SOTELO ([id number])[facility] [place] [address] [place] Calcium [Mass/Vol] 6.9 mg/dL Low 8.4-10.4 [facility] Comment on above: Performed By: #### L AB113, [id number], LAB15 ####Doughnut Dough Mixer: MARY SOTELO ([id number])[facility] ([facility])[address] [place] [address] [place] Chloride [Moles/Vol] 105 mmol/L Normal 98-107 [facility] Comment on above: Performed By: #### L AB113, [id number], LAB15 ####Doughnut Dough Mixer: MARY SOTELO ([id number])[facility] [place] [address] [place] CO2 [Moles/Vol] 30 mmol/L Normal 22-30 [facility] Comment on above: Performed By: #### L AB113, [id number], LAB15 ####Doughnut Dough Mixer: MARY SOTELO ([id number])[facility] ([facility])[address] [place] [address] Creatinine [Mass/Vol] 2.30 mg/dL High 0.52-1.04 [facility] Comment on above: Performed By: #### L AB113, [id number], LAB15 ####Doughnut Dough Mixer: MARY SOETLO ([id number])[facility] [place] [address] GLOMERULAR FILTRATION RATE ML/MIN/1.73 SQ M.PREDICTED 23.2 mL/min/1.73m*2 Low >60.0 [facility] Comment on above: Result Comment: Calc ulation based on the Chronic Kidney Disease Epidemiology Collaboration (CKD-EPI) equation refit without adjustment for race Performed By: #### L AB113, [id number], LAB15 ####Doughnut Dough Mixer: MARY SOTELO ([id number])[facility] [place] [address] [place] Glucose [Mass/Vol] 69 mg/dL Low 70-100 [facility] Comment on above: Performed By: #### L AB113, [id number], LAB15 ####Doughnut Dough Mixer: MARY SOTELO ([id number])[facility] [place] [address] [place] Potassium [Moles/Vol] 4.3 mmol/L Normal 3.5-5.1 [facility] Comment on above: Performed By: #### L AB113, [id number], LAB15 ####Doughnut Dough Mixer: MARY SOTELO ([id number])[facility] [place] [address] Sodium [Moles/Vol] 136 mmol/L Normal 135-145 [facility] Comment on above: Performed By: #### L AB113, [id number], LAB15 ####Doughnut Dough Mixer: MARY SOTELO ([id number])[facility] [place] [address] Urea nitrogen [Mass/Vol] 22 mg/dL High 7-17 [facility] Comment on above: Performed By: #### L AB113, [id number], LAB15 ####Doughnut Dough Mixer: MARY SOTELO ([id number])[facility] [place] [address] Basic metabolic 1998 panelon 08-09-2024 Anion gap [Moles/Vol] 1 mmol/L Low 3 - 13 mmol/L [facility] Calcium [Mass/Vol] 6.9 mg/dL Low 8.4 - 10. 4 mg/dL [facility] Chloride [Moles/Vol] 105 mmol/L 98 - 10 7 mmol/L [facility] CO2 [Moles/Vol] 30 mmol/L 22 - 30 mmol/L [facility] Creatinine [Mass/Vol] 2.30 mg/dL High 0.52 - 1.04 mg/dL [facility] GFR/1.73 sq M.predicted (S/P/Bld) [Vol rate/Area] 23.2 mL/min Low - PINF [facility] Glucose [Mass/Vol] 69 mg/dL Low 70 - 100 mg/dL [facility] Interpretation and review of laboratory results Abnormal [facility] Potassium [Moles/Vol] 4.3 mmol/L 3.5 - 5.1 mmol/L [facility] Sodium [Moles/Vol] 136 mmol/L 135 - 145 mmol/L [facility] Urea nitrogen [Mass/Vol] 22 mg/dL High 7 - 17 mg/dL [facility] CARECOORDon 08-09-2024 [place] Normal [facility] [place] Normal [facility] CBC W Auto Differential pane l (Bld)on 08-09-2024 Basophils (Bld) [#/Vol] 0.0 10*3/uL 0.0 - 0.2 10*3/uL [facility] Basophils/100 WBC (Bld) 0.4 % 0.0 - 2.0 % [facility] Eosinophils (Bld) [#/Vol] 0.3 10*3/uL 0.0 - 0.5 10*3/uL [facility] Eosinophils/100 WBC (Bld) 4.3 % 0.0 - 6.0 % [facility] Erythrocyte distribution width (RBC) [Ratio] 17.2 % High 11.5 - 15.0 % [facility] Hematocrit (Bld) [Volume fraction] 26.6 % Low 35.0 - 47.0 % [facility] Hemoglobin (Bld) [Mass/Vol] 8.1 g/dL Low 11.7 - 16.0 g/dL [facility] Immature granulocytes (Bld) [#/Vol] 0.1 10*3/uL High NINF - 0.1 10*3/uL [facility] Immature granulocytes/100 WBC (Bld) 0.8 % 0.0 - 2.0 % [facility] Interpretation and review of laboratory results Abnormal [facility] IPF 3 [facility] Lymphocytes (Bld) [#/Vol] 1.3 10*3/uL 1.0 - 4.3 10*3/uL [facility] Lymphocytes/100 WBC (Bld) 17.0 % 15.0 - 45.0 % [facility] MCH (RBC) [Entitic mass] 28.8 pg 26.0 - 34.0 pg [facility] MCHC (RBC) [Mass/Vol] 30.5 % 30.5 - 36.0 % [facility] MCV (RBC) [Entitic vol] 94.7 fL 77.0 - 99.0 fL [facility] Monocytes (Bld) [#/Vol] 0.5 10*3/uL 0.0 - 0.9 10*3/uL [facility] Monocytes/100 WBC (Bld) 6.1 % 5.0 - 13.0 % [facility] Neutrophils (Bld) [#/Vol] 5.5 10*3/uL 1.8 - 7.5 10*3/uL [facility] Neutrophils/100 WBC (Bld) 71.4 % 38.0 - 82.0 % [facility] Nucleated RBC/100 WBC (Bld) [Ratio] 0.0 % [facility] Platelet mean volume (Bld) [Entitic vol] 10.5 fL 9.0 - 12.7 fL [facility] Platelets (Bld) [#/Vol] 108 10*3/uL Low 140 - 440 10*3/uL [facility] RBC (Bld) [#/Vol] 2.81 10*6/uL Low 3.80 - 5.2 0 10*6/uL [facility] WBC (Bld) [#/Vol] 7.7 10*3/uL 3.6 - 10.7 10*3/uL [facility] CBC WITH AUTO DIFFERENTIALon 08-09-2024 Basophils (Bld) [#/Vol] 0.0 10*3/uL Normal 0.0-0.2 [facility] Comment on above: Performed By: #### L [id number] ####Doughnut Dough Mixer: MARY SOTELO ([id number])[facility])[address] [place] [address] Basophils/100 WBC (Bld) 0.4 % Normal 0.0-2.0 [facility] Comment on above: Performed By: #### L [id number] ####Doughnut Dough Mixer: MARY SOTELO ([id number])[facility])[address] [place] [address] Eosinophils (Bld) [#/Vol] 0.3 10*3/uL Normal 0.0-0.5 [facility] Comment on above: Performed By: #### L [id number] ####Doughnut Dough Mixer: MARY SOTELO ([id number])[facility])[address] [place] [address] Eosinophils/100 WBC (Bld) 4.3 % Normal 0.0-6.0 [facility] Comment on above: Performed By: #### L [id number] ####Doughnut Dough Mixer: MARY SOTELO ([id number])[facility])[address] [place] [address] Erythrocyte distribution width (RBC) [Ratio] 17.2 % High 11.5-15.0 [facility] Comment on above: Performed By: #### L [id number] ####Doughnut Dough Mixer: MARY SOTELO ([id number])[facility])[address] [place] [address] Hematocrit (Bld) [Volume fraction] 26.6 % Low 35.0-47.0 [facility] Comment on above: Performed By: #### L [id number] ####Doughnut Dough Mixer: MARY SOTELO ([id number])[address] Hemoglobin (Bld) [Mass/Vol] 8.1 g/dL Low 11.7-16.0 [facility] Comment on above: Performed By: #### L [id number] ####Doughnut Dough Mixer: MARY SOTELO ([id number])[facility])[address] [place] [address] IMMATURE GRANS % 0.8 % Normal 0.0-2.0 [facility] Comment on above: Performed By: #### L [id number] ####Doughnut Dough Mixer: MARY SOTELO ([id number])[address] IMMATURE GRANS ABSOLUTE 0.1 10*3/uL High <0.1 [facility] Comment on above: Performed By: #### L [id number] ####Doughnut D[employer] Mixer: MARY SOTELO ([id number])[facility])[address] [place] [address] IPF 3 Normal [facility] Comment on above: Performed By: #### L [id number] ####Dough[employer] D[employer] Mixer: MARY SOTELO ([id number])[facility])[address] [place] [address] Lymphocytes (Bld) [#/Vol] 1.3 10*3/uL Normal 1.0-4.3 [facility] Comment on above: Performed By: #### L [id number] ####D[employer]nut D[employer]er: MARY SOTELO ([id number])[facility])[address] [place] [address] Lymphocytes/100 WBC (Bld) 17.0 % Normal 15.0-45.0 [facility] Comment on above: Performed By: #### L [id number] ####D[employer] D[employer] Mixer: MARY SOTELO ([id number])[facility])[address] [place] [address] MCH (RBC) [Entitic mass] 28.8 pg Normal 26.0-34.0 [facility] Comment on above: Performed By: #### L [id number] ####D[employer]nut D[employer] Mixer: MARY SOTELO ([id number])[facility])[address] [place] [address] MCHC 30.5 % Normal 30.5-36.0 [facility] Comment on above: Performed By: #### L [id number] ####D[employer] D[employer] Mixer: MARY SOTELO ([id number])[facility])[address] [place] [address] MCV (RBC) [Entitic vol] 94.7 fL Normal 77.0-99.0 [facility] Comment on above: Performed By: #### L [id number] ####D[employer]nut D[employer] Mixer: MARY SOTELO ([id number])[facility])[address] [place] [address] Monocytes (Bld) [#/Vol] 0.5 10*3/uL Normal 0.0-0.9 [facility] Comment on above: Performed By: #### L [id number] ####D[employer] D[employer] Mixer: MARY SOTELO ([id number])[facility])[address] [place] [address] Monocytes/100 WBC (Bld) 6.1 % Normal 5.0-13.0 [facility] Comment on above: Performed By: #### L [id number] ####D[employer]nut D[employer] Mixer: MARY SOTELO ([id number])[facility])[address] [place] [address] NEUTROPHILS ABSOLUTE 5.5 10*3/uL Normal 1.8-7.5 [facility] Comment on above: Performed By: #### L [id number] ####Doughnut Dough Mixer: MARY SOTELO ([id number])[facility] ([facility])[address] [place] [address] Neutrophils/100 WBC (Bld) 71.4 % Normal 38.0-82.0 [facility] Comment on above: Performed By: #### L [id number] ####D[employer]nut D[employer] Mixer: MARY SOTELO ([id number])[facility] ([facility])[address] [place] [address] NRBC 0.0 /100 WBCs Normal 0.0-2.0 [facility] Comment on above: Performed By: #### L [id number] ####Doughnut Dough Mixer: MARY SOTELO ([id number])[facility] ([facility])[address] [place] [address] Platelet mean volume (Bld) [Entitic vol] 10.5 fL Normal 9.0-12.7 [facility] Comment on above: Performed By: #### L [id number] ####D[employer] D[employer] Mixer: MARY SOTELO ([id number])[facility] ([facility])[address] [place] [address] [place] Platelets (Bld) [#/Vol] 108 10*3/uL Low 140-440 [facility] Comment on above: Performed By: #### L [id number] ####D[employer]nut D[employer] Mixer: MARY SOTELO ([id number])[facility] ([facility])[address] [place] [address] [place] RBC (Bld) [#/Vol] 2.81 10*6/uL Low 3.80-5.20 [facility] Comment on above: Performed By: #### L [id number] ####D[employer]nut D[employer] Mixer: MARY SOTELO ([id number])[facility] ([facility])[address] [place] [address] [place] WBC (Bld) [#/Vol] 7.7 10*3/uL Normal 3.6-10.7 [facility] Comment on above: Performed By: #### L [id number] ####D[employer]nut Dough Mixer: MARY SOTELO ([id number])[facility])[address] [place] [address] COMPLETE URINALYSISon 2023 BACTERIA (#/HPF) IN URINE Moderate Abnormal Negative [facility] Comment on above: Performed By: #### L [id number] ####D[employer]nut D[employer] Mixer: MARY SOTELO ([id number])[facility] ([facility])[address] [place] [address] BILIRUBIN, TOTAL PRESENCE IN URINE Negative Normal Negative [facility] Comment on above: Performed By: #### L [id number] ####D[employer]nut D[employer] Mixer: MARY SOTELO ([id number])[facility] ([facility])[address] [place] [address] Clarity (U) Extra Turbid Abnormal Clear [facility] Comment on above: Performed By: #### L [id number] ####Doughnut D[employer] Mixer: MARY SOTELO ([id number])[facility] ([facility])[address] [place] [address] Color (U) Yellow Normal Lt. Yellow [facility] Comment on above: Performed By: #### L [id number] ####Doughnut D[employer] Mixer: MARY SOTELO ([id number])[facility] ([facility])[address] [place] [address] Glucose (U) [Mass/Vol] 50 mg/dL Normal Normal (<70) [facility] Comment on above: Performed By: #### L [id number] ####D[employer]nut D[employer] Mixer: MARY SOTELO ([id number])[facility] ([facility])[address] [place] [address] HEMOGLOBIN PRESENCE IN URINE >1.0 Abnormal Negative [facility] Comment on above: Performed By: #### L [id number] ####Doughnut D[employer] Mixer: MARY SOTELO ([id number])[facility] ([facility])[address] [place] [address] HYALINE CASTS (#/LPF) IN URINE SEDIMENT BY MICROSCOPY Negative Normal Negative [facility] Comment on above: Performed By: #### L [id number] ####Doughnut D[employer] Mixer: MARY SOTELO ([id number])[facility])[address] [place] [address] Ketones Ql (U) Negative Normal Negative [facility] Comment on above: Performed By: #### L [id number] ####Doughnut D[employer] Mixer: MARY SOTELO ([id number])[facility] ([facility])[address] [place] [address] LEUKOCYTE ESTERASE PRESENCE IN URINE BY TEST STRIP 500 Bere/uL Abnormal Negative [facility] Comment on above: Performed By: #### L [id number] ####Doughnut Dough Mixer: MARY SOTELO ([id number])[facility])[address] [place] [address] NITRITE PRESENCE IN URINE Negative Normal Negative [facility] Comment on above: Performed By: #### L [id number] ####Doughnut Dough Mixer: MARY SOTELO ([id number])[facility] ([facility])[address] [place] [address] pH (U) 5.0 [pH] Normal 5.0-8.0 [facility] Comment on above: Performed By: #### L [id number] ####D[employer]nut D[employer] Mixer: MARY SOTELO ([id number])[facility] ([facility])[address] [place] [address] Protein (U) [Mass/Vol] 70 mg/dL Abnormal Negative [facility] Comment on above: Performed By: #### L [id number] ####Doughnut Dough Mixer: MARY SOTELO ([id number])[facility] ([facility])[address] [place] [address] [place] RBC (#/HPF) IN URINE SEDIMENT >100 Abnormal 0-2 [facility] Comment on above: Performed By: #### L [id number] ####Doughnut D[employer] Mixer: MARY SOTELO ([id number])[facility] ([facility])[address] [place] [address] [place] Specific gravity (U) [Rel density] 1.007 Normal 1.005-1.030 [facility] Comment on above: Performed By: #### L [id number] ####Doughnut D[employer] Mixer: MARY SOTELO ([id number])[facility] ([facility])[address] [place] [address] [place] SQUAMOUS EPITHELIAL CELLS (#/HPF) IN URINE SEDIMENT 3-5 Normal 3-5 [facility] Comment on above: Performed By: #### L [id number] ####Doughnut D[employer] Mixer: MARY SOTELO ([id number])[facility] ([facility])[address] [place] [address] [place] UROBILINOGEN (MG/DL) IN URINE Normal Normal Normal (0-1) [facility] Comment on above: Performed By: #### L [id number] ####D[employer]nut D[employer] Mixer: MARY SOTELO ([id number])[facility] ([facility])[address] [place] [address] [place] WBC (LEUKOCYTE) (#/HPF) IN URINE SEDIMENT >100 Abnormal 0-5 [facility] Comment on above: Performed By: #### L [id number] ####Doughnut Dough Mixer: MARY SOTELO ([id number])[facility] ([facility])[address] [place] [address] [place] WBC (LEUKOCYTE) CLUMPS (#/HPF) IN URINE SEDIMENT Many Abnormal Negative [facility] Comment on above: Performed By: #### L [id number] ####Doughnut Dough Mixer: MARY SOTELO ([id number])[facility] ([facility])[address] [place] [address] [place] YEAST (#/HPF) IN URINE Loaded Abnormal Negative [facility] Comment on above: Performed By: #### L [id number] ####Doughnut Dough Mixer: MARY SOTELO ([id number])[facility] ([facility])[address] [place] [address] [place] CREATININE, URINE, RANDOMon 08-09-2024 CREATININE, URINE 41.3 mg/dL Normal No Range [facility] Comment on above: Performed By: #### L [id number], [id number] ####Doughnut Dough Mixer: MARY SOTELO ([id number])[facility] ([facility])[address] [place] [address] [place] Creatinine (U) [Mass/Vol]on 08-09-2024 CREATININE, URINE 41.3 mg/dL No Range [facility]alt GLUCOSE, RANDOMon 08-09-2024 Glucose [Mass/Vol] 216 mg/dL High 70-100 [facility] Comment on above: Performed By: #### L [id number] ####Doughnut Dough Mixer: MARY SOTELO ([id number])[facility] ([facility])[address] [place] [address] Glucose (Bld) [Mass/Vol]on 1 Glucose [Mass/Vol] 216 mg/dL High 70 - 100 mg/dL [facility] Interpretation and review of laboratory results Abnormal [facility] IDNon 08-09-2024 IDN Normal [facility] IDN Normal [facility] Laboratory - Chemistry and C hemistry - challengeon 08-09-2024 Glucose [Mass/Vol] 164 mg/dL High 70 - 100 mg/dL [facility] Glucose [Mass/Vol] 264 mg/dL High 70 - 100 mg/dL [facility] Glucose [Mass/Vol] 246 mg/dL High 70 - 100 mg/dL [facility] Glucose [Mass/Vol] 153 mg/dL High 70 - 100 mg/dL [facility] Glucose [Mass/Vol] 144 mg/dL High 70 - 100 mg/dL [facility] Glucose [Mass/Vol] 115 mg/dL High 70 - 100 mg/dL [facility] Glucose [Mass/Vol] mg/dL Low 70 - 100 mg/dL [facility] Glucose [Mass/Vol] 83 mg/dL 70 - 100 mg/dL [facility] Glucose [Mass/Vol] 70 mg/dL 70 - 100 mg/dL [facility] Glucose [Mass/Vol] mg/dL Low 70 - 100 mg/dL [facility] Magnesium [Mass/Vol] 1.8 mg/dL 1.6 - 2 .3 mg/dL [facility] - Urinalysison Protein (U) [Mass/Vol] 107 mg/dL High 0 - 12 mg/dL [facility] MAGNESIUMon 08-09-2024 Magnesium [Mass/Vol] 1.8 mg/dL Normal 1.6-2.3 [facility] Comment on above: Performed By: #### L [id number], [id number], LAB15 ####Doughnut Dough Mixer: MARY SOTELO ([id number])[facility] [place] [address] [place] Magnesium [Mass/Vol]on 08-09 Interpretation and review of laboratory results Normal [facility] Panel Informationon 08-09 Interpretation and review of laboratory results Abnormal [facility] Interpretation and review of laboratory results Abnormal [facility] Interpretation and review of laboratory results Abnormal [facility] Interpretation and review of laboratory results Abnormal [facility] Interpretation and review of laboratory results Abnormal [facility] Interpretation and review of laboratory results Abnormal [facility] Interpretation and review of laboratory results Abnormal [facility] Interpretation and review of laboratory results Abnormal [facility] Interpretation and review of laboratory results Normal [facility] Interpretation and review of laboratory results Normal [facility] Interpretation and review of laboratory results Abnormal [facility] Nursing Noteon 08-09-2024 Nursing Note Normal [facility] PHOSPHORUSon 08-09-2024 Phosphate [Mass/Vol] 4.1 mg/dL Normal 2.5-4.5 [facility] Comment on above: Performed By: #### L AB113, [id number], LAB15 ####Doughnut Dough Mixer: MARY SOTELO ([id number])[facility])[address] [place] [address] [place] PROTEIN, URINE, RANDOMon Protein (U) [Mass/Vol] 107 mg/dL High 0-12 [facility] Comment on above: Performed By: #### L AB384, [id number] ####Doughnut Dough Mixer: MARY SOTELO ([id number])[facility])[address] [place] [address] [place] Phosphate [Moles/Vol]on Interpretation and review of laboratory results Normal [facility] Phosphate [Mass/Vol] 4.1 mg/dL 2.5 - 4 .5 mg/dL [facility] Progress Noteon 08-09-2024 Progress Note Normal [facility] Normal [facility] Progress Note Normal [facility] URINE CULTUREon 08-09-2024 Bacteria identified Cx Nom (U) Normal [facility] Comment on above: Performed By: #### L [id number] ####Doughnut Dough Mixer: MARY SOTELO ([id number])[facility] ([facility] [place] [address] Urinalysis complete panel (U )on 08-09-2024 Bacteria LM.HPF (Urine sed) [#/Area] Moderate Abnormal Negative /HPF [facility] Bilirubin Ql (U) Negative Negative mg/dL [facility] Clarity (U) Extra Turbid Abnormal Clear [facility] h Color (U) Yellow Lt. Yellow [facility] Epithelial cells.squamous LM.HPF (Urine sed) [#/Area] 3-5 [facility] Glucose Ql (U) 50 mg/dL Normal (<70) [facility]th Hemoglobin Ql (U) >1.0 Abnormal Negative mg/dL [facility] Hyaline casts Auto (Urine sed) [#/Area] Negative Negative /LPF [facility] Interpretation and review of laboratory results Abnormal [facility] Ketones (U) [Mass/Vol] Negative Negat pawan mg/dL [facility] Leukocyte clumps LM.HPF (Urine sed) [#/Area] Many Abnormal Negative /HPF [facility] Leukocyte esterase Test strip Ql (U) 500 Abnormal Negative Bere/uL [facility] Nitrite Ql (U) Negative Negative [facility] pH (U) 5.0 [pH] 5.0 - 8.0 pH [facility] Protein (U) [Mass/Vol] 70 mg/dL Abnormal Negative [facility] RBC LM.HPF (Urine sed) [#/Area] /[HPF] Abnormal [facility] Specific gravity (U) [Rel density] 1.007 1.005 - 1.030 [facility] Urobilinogen (U) [Mass/Vol] Normal Normal (0-1) mg/dL [facility] WBC LM.HPF (Urine sed) [#/Area] /[HPF] Abnormal [facility] Yeast.budding LM.HPF (Urine sed) [#/Area] Loaded Abnormal Negative /HPF [facility] ALBUMINon 08-08-2024 Albumin [Mass/Vol] 2.7 g/dL Low 3.5-5.0 [facility] Comment on above: Performed By: #### L AB45, [id number], LAB15, [id number] ####Doughnut Dough Mixer: MARY SOTELO ([id number])[facility] ([facility])[address] [place] [address] BASIC METABOLIC PANELon Anion gap [Moles/Vol] 2 mmol/L Low 3-13 [facility] Comment on above: Performed By: #### L AB45, [id number], LAB15, [id number] ####Doughnut Dough Mixer: MARY SOTELO ([id number])[facility] ([facility])[address] [place] [address] Calcium [Mass/Vol] 6.9 mg/dL Low 8.4-10.4 [facility] Comment on above: Performed By: #### L AB45, [id number], LAB15, [id number] ####Doughnut Dough Mixer: MARY SOTELO ([id number])[facility] ([facility])[address] [place] [address] [place] Chloride [Moles/Vol] 100 mmol/L Normal 98-107 [facility] Comment on above: Performed By: #### L AB45, [id number], LAB15, CHJ360 ####Doughnut Dough Mixer: MARY SOTELO ([id number])[facility] ([facility])[address] [place] [address] [place] CO2 [Moles/Vol] 32 mmol/L High 22-30 [facility] Comment on above: Performed By: #### L AB45, [id number], LAB15, [id number] ####Doughnut Dough Mixer: MARY SOTELO ([id number])[facility] ([facility])[address] [place] [address] Creatinine [Mass/Vol] 1.51 mg/dL High 0.52-1.04 [facility] Comment on above: Performed By: #### L AB45, [id number], LAB15, [id number] ####Doughnut Dough Mixer: MARY SOTELO ([id number])[facility])[address] [place] [address] [place] GLOMERULAR FILTRATION RATE ML/MIN/1.73 SQ M.PREDICTED 38.4 mL/min/1.73m*2 Low >60.0 [facility] Comment on above: Result Comment: Calc ulation based on the Chronic Kidney Disease Epidemiology Collaboration (CKD-EPI) equation refit without adjustment for race Performed By: #### L AB45, [id number], LAB15, VCT059 ####Doughnut Dough Mixer: MARY SOTELO ([id number])[facility])[address] [place] [address] Glucose [Mass/Vol] 293 mg/dL High 70-100 [facility] Comment on above: Performed By: #### L AB45, [id number], LAB15, [id number] ####Doughnut Dough Mixer: MARY SOTELO ([id number])[facility] ([facility])[address] [place] [address] Potassium [Moles/Vol] 3.7 mmol/L Normal 3.5-5.1 [facility] Comment on above: Performed By: #### L AB45, [id number], LAB15, [id number] ####Doughnut D[employer] Mixer: MARY SOTELO ([id number])[facility])[address] [place] [address] [place] Sodium [Moles/Vol] 134 mmol/L Low 135-145 [facility] Comment on above: Performed By: #### L AB45, [id number], LAB15, [id number] ####Doughnut D[employer] Mixer: MARY SOTELO ([id number])[facility])[address] [place] [address] [place] Urea nitrogen [Mass/Vol] 14 mg/dL Normal 7-17 [facility] Comment on above: Performed By: #### L AB45, [id number], LAB15, EEH265 ####D[employer] D[employer] Mixer: MARY SOTELO ([id number])[address] Basic metabolic 1998 panelon 08-08-2024 Anion gap [Moles/Vol] 2 mmol/L Low 3 - 13 mmol/L [facility] [employer] Calcium [Mass/Vol] 6.9 mg/dL Low 8.4 - 10. 4 mg/dL [facility] [employer] Chloride [Moles/Vol] 100 mmol/L 98 - 10 7 mmol/L [facility] [employer] CO2 [Moles/Vol] 32 mmol/L High 22 - 30 mmol/L [facility] Creatinine [Mass/Vol] 1.51 mg/dL High 0.52 - 1.04 mg/dL [facility] [employer] GFR/1.73 sq M.predicted (S/P/Bld) [Vol rate/Area] 38.4 mL/min Low - PINF [facility] [employer] Glucose [Mass/Vol] 293 mg/dL High 70 - 100 mg/dL [facility] [employer] Potassium [Moles/Vol] 3.7 mmol/L 3.5 - 5.1 mmol/L [facility] [employer] Sodium [Moles/Vol] 134 mmol/L Low 135 - 145 mmol/L [facility] [employer] Urea nitrogen [Mass/Vol] 14 mg/dL 7 - 17 mg/dL [facility] [employer] CBC W Auto Differential pane l (Bld)on 08-08-2024 Basophils (Bld) [#/Vol] 0.0 10*3/uL 0.0 - 0.2 10*3/uL [facility] [employer] Basophils/100 WBC (Bld) 0.1 % 0.0 - 2.0 % [facility] Eosinophils (Bld) [#/Vol] 0.3 10*3/uL 0.0 - 0.5 10*3/uL [facility] [employer] Eosinophils/100 WBC (Bld) 4.0 % 0.0 - 6.0 % [facility] [employer] Erythrocyte distribution width (RBC) [Ratio] 17.2 % High 11.5 - 15.0 % [facility] [employer] Hematocrit (Bld) [Volume fraction] 28.9 % Low 35.0 - 47.0 % [facility] [employer] Hemoglobin (Bld) [Mass/Vol] 8.7 g/dL Low 11.7 - 16.0 g/dL [facility] Immature granulocytes (Bld) [#/Vol] 0.1 10*3/uL High NINF - 0.1 10*3/uL [facility] Immature granulocytes/100 WBC (Bld) 1.3 % 0.0 - 2.0 % [facility] Interpretation and review of laboratory results Abnormal [facility] IPF 3 [facility] Lymphocytes (Bld) [#/Vol] 0.9 10*3/uL Low 1.0 - 4.3 10*3/uL [facility] Lymphocytes/100 WBC (Bld) 11.8 % Low 15.0 - 45.0 % [facility] MCH (RBC) [Entitic mass] 28.8 pg 26.0 - 34.0 pg [facility] MCHC (RBC) [Mass/Vol] 30.1 % Low 30.5 - 36.0 % [facility] MCV (RBC) [Entitic vol] 95.7 fL 77.0 - 99.0 fL [facility] Monocytes (Bld) [#/Vol] 0.3 10*3/uL 0.0 - 0.9 10*3/uL [facility] Monocytes/100 WBC (Bld) 4.5 % Low 5.0 - 13.0 % [facility] Neutrophils (Bld) [#/Vol] 5.9 10*3/uL 1.8 - 7.5 10*3/uL [facility] Neutrophils/100 WBC (Bld) 78.3 % 38.0 - 82.0 % [facility] Nucleated RBC/100 WBC (Bld) [Ratio] 0.0 % [facility] Platelet mean volume (Bld) [Entitic vol] 10.8 fL 9.0 - 12.7 fL [facility] Platelets (Bld) [#/Vol] 118 10*3/uL Low 140 - 440 10*3/uL [facility] RBC (Bld) [#/Vol] 3.02 10*6/uL Low 3.80 - 5.2 0 10*6/uL [facility] WBC (Bld) [#/Vol] 7.6 10*3/uL 3.6 - 10.7 10*3/uL [facility] CBC WITH AUTO DIFFERENTIALon 08-08-2024 Basophils (Bld) [#/Vol] 0.0 10*3/uL Normal 0.0-0.2 [facility] Comment on above: Performed By: #### L [id number] ####[employer]: MARY SOTELO ([id number])[facility])[address] [place] [address] Basophils/100 WBC (Bld) 0.1 % Normal 0.0-2.0 [facility] Comment on above: Performed By: #### L [id number] ####[employer]: MARY SOTELO ([id number])[facility])[address] [place] [address] Eosinophils (Bld) [#/Vol] 0.3 10*3/uL Normal 0.0-0.5 [facility] Comment on above: Performed By: #### L [id number] ####[employer]: MARY SOTELO ([id number])[address] Eosinophils/100 WBC (Bld) 4.0 % Normal 0.0-6.0 [facility] Comment on above: Performed By: #### L [id number] ####[employer]: MARY SOTELO ([id number])[address] Erythrocyte distribution width (RBC) [Ratio] 17.2 % High 11.5-15.0 [facility] Comment on above: Performed By: #### L [id number] ####[employer]: MARY SOTELO ([id number])[address] Hematocrit (Bld) [Volume fraction] 28.9 % Low 35.0-47.0 [facility] Comment on above: Performed By: #### L [id number] ####[employer]: MARY SOTELO ([id number])[address] Hemoglobin (Bld) [Mass/Vol] 8.7 g/dL Low 11.7-16.0 [facility] Comment on above: Performed By: #### L [id number] ####[employer]: MARY SOTELO ([id number])[facility])[address] [place] [address] IMMATURE GRANS % 1.3 % Normal 0.0-2.0 [facility] Comment on above: Performed By: #### L [id number] ####Doughnut Dough Mixer: MARY SOTELO ([id number])[facility])[address] [place] [address] IMMATURE GRANS ABSOLUTE 0.1 10*3/uL High <0.1 [facility] Comment on above: Performed By: #### L [id number] ####Doughnut Dough Mixer: MARY SOETLO ([id number])[address] IPF 3 Normal [facility] Comment on above: Performed By: #### L [id number] ####Doughnut Dough Mixer: MRAY SOTELO ([id number])[facility])[address] [place] [address] Lymphocytes (Bld) [#/Vol] 0.9 10*3/uL Low 1.0-4.3 [facility] Comment on above: Performed By: #### L [id number] ####Doughnut Dough Mixer: MARY SOTELO ([id number])[address] Lymphocytes/100 WBC (Bld) 11.8 % Low 15.0-45.0 [facility] Comment on above: Performed By: #### L [id number] ####Doughnut Dough Mixer: MARY SOTELO ([id number])[facility])[address] [place] [address] MCH (RBC) [Entitic mass] 28.8 pg Normal 26.0-34.0 [facility] Comment on above: Performed By: #### L [id number] ####Doughnut Dough Mixer: MARY SOTELO ([id number])[facility])[address] [place] [address] MCHC 30.1 % Low 30.5-36.0 [facility] Comment on above: Performed By: #### L [id number] ####Doughnut Dough Mixer: MARY SOTELO ([id number])[facility])[address] [place] [address] MCV (RBC) [Entitic vol] 95.7 fL Normal 77.0-99.0 [facility] Comment on above: Performed By: #### L [id number] ####Doughnut Dough Mixer: MARY SOTELO ([id number])[facility] ([facility])[address] [place] [address] Monocytes (Bld) [#/Vol] 0.3 10*3/uL Normal 0.0-0.9 [facility] Comment on above: Performed By: #### L [id number] ####Doughnut Dough Mixer: MARY SOTELO ([id number])[facility] ([facility])[address] [place] [address] Monocytes/100 WBC (Bld) 4.5 % Low 5.0-13.0 [facility] Comment on above: Performed By: #### L [id number] ####Doughnut Dough Mixer: MARY SOTELO ([id number])[facility])[address] [place] [address] NEUTROPHILS ABSOLUTE 5.9 10*3/uL Normal 1.8-7.5 [facility] Comment on above: Performed By: #### L [id number] ####Doughnut Dough Mixer: MARY SOTELO ([id number])[facility])[address] [place] [address] Neutrophils/100 WBC (Bld) 78.3 % Normal 38.0-82.0 [facility] Comment on above: Performed By: #### L [id number] ####Doughnut Dough Mixer: MARY SOTELO ([id number])[facility])[address] [place] [address] NRBC 0.0 /100 WBCs Normal 0.0-2.0 [facility] Comment on above: Performed By: #### L [id number] ####Doughnut Dough Mixer: MARY SOTELO ([id number])[facility] ([facility])[address] [place] [address] Platelet mean volume (Bld) [Entitic vol] 10.8 fL Normal 9.0-12.7 [facility] Comment on above: Performed By: #### L [id number] ####Doughnut Dough Mixer: MARY SOTELO ([id number])[facility] ([facility])[address] [place] [address] Platelets (Bld) [#/Vol] 118 10*3/uL Low 140-440 [facility] Comment on above: Performed By: #### L [id number] ####Doughnut Dough Mixer: MARY SOTELO ([id number])[facility] ([facility])[address] [place] [address] RBC (Bld) [#/Vol] 3.02 10*6/uL Low 3.80-5.20 [facility] Comment on above: Performed By: #### L [id number] ####Doughnut Dough Mixer: MARY SOTELO ([id number])[facility] ([facility])[address] [place] [address] WBC (Bld) [#/Vol] 7.6 10*3/uL Normal 3.6-10.7 [facility] Comment on above: Performed By: #### L [id number] ####Doughnut Dough Mixer: MARY SOTELO ([id number])[facility] ([facility])[address] [place] [address] IDNon 08-08-2024 IDN Normal [facility] IDN Normal [facility] Laboratory - Chemistry and C hemistry - challengeon 08-08-2024 Glucose [Mass/Vol] 218 mg/dL High 70 - 100 mg/dL [facility] Glucose [Mass/Vol] 245 mg/dL High 70 - 100 mg/dL [facility] Glucose [Mass/Vol] 334 mg/dL High 70 - 100 mg/dL [facility] Glucose [Mass/Vol] 314 mg/dL High 70 - 100 mg/dL [facility] Albumin [Mass/Vol] 2.7 g/dL Low 3.5 - 5.0 g/dL [facility] Magnesium [Mass/Vol] 1.7 mg/dL 1.6 - 2 .3 mg/dL [facility] MAGNESIUMon 08-08-2024 Magnesium [Mass/Vol] 1.7 mg/dL Normal 1.6-2.3 [facility] Comment on above: Performed By: #### L [id number], [id number], LAB15, [id number] ####Doughnut Dough Mixer: MARY SOTELO ([id number])[facility] ([facility])[address] [place] [address] [place] Magnesium [Mass/Vol]on 08-08 Interpretation and review of laboratory results Normal [facility] No Panel Informationon 08-08 Interpretation and review of laboratory results Abnormal [facility] Interpretation and review of laboratory results Abnormal [facility] Interpretation and review of laboratory results Abnormal [facility] Interpretation and review of laboratory results Abnormal [facility] Interpretation and review of laboratory results Abnormal [facility] Interpretation and review of laboratory results Abnormal [facility] PHOSPHORUSon 08-08-2024 Phosphate [Mass/Vol] 2.1 mg/dL Low 2.5-4.5 [facility] Comment on above: Performed By: #### L AB45, [id number], LAB15, [id number] ####Doughnut Dough Mixer: MARY SOTELO ([id number])[facility] ([facility])[address] [place] [address] [place] Phosphate [Moles/Vol]on Phosphate [Mass/Vol] 2.1 mg/dL Low 2.5 - 4 .5 mg/dL [facility] Progress Noteon 08-08-2024 Progress Note Normal [facility] Progress Note Normal [facility] Progress Note Normal [facility] XR CHEST 1 VIEWon 08-08-2024 XR CHEST 1 VIEW Normal [facility] XR Chest Single viewon 08-08 [facility] Radiology Study observation (narrative) [facility] XR Chest Single viewOrdered By: Kalia Foy on 08-08-2024 [facility] Work Phone: BASIC METABOLIC PANELon 100 Anion gap [Moles/Vol] 1 mmol/L Low 3-13 [facility] Comment on above: Performed By: #### L AB103, [id number], LAB15 ####Doughnut Dough Mixer: MARY SOTELO ([id number])[facility] [place] [address] Calcium [Mass/Vol] 6.9 mg/dL Low 8.4-10.4 [facility] Comment on above: Performed By: #### L AB103, [id number], LAB15 ####Doughnut Dough Mixer: MARY SOTELO ([id number])[facility] ([facility])[address] [place] [address] Chloride [Moles/Vol] 102 mmol/L Normal 98-107 [facility] Comment on above: Performed By: #### L AB103, [id number], LAB15 ####Doughnut Dough Mixer: MARY SOTELO ([id number])[facility] [place] [address] CO2 [Moles/Vol] 31 mmol/L High 22-30 [facility] Comment on above: Performed By: #### L AB103, [id number], LAB15 ####Doughnut Dough Mixer: MARY SOTELO ([id number])[facility] ([facility])[address] [place] [address] Creatinine [Mass/Vol] 2.07 mg/dL High 0.52-1.04 [facility] Comment on above: Performed By: #### L AB103, [id number], LAB15 ####Doughnut Dough Mixer: MARY SOTELO ([id number])[facility] ([facility])[address] [place] [address] GLOMERULAR FILTRATION RATE ML/MIN/1.73 SQ M.PREDICTED 26.3 mL/min/1.73m*2 Low >60.0 [facility] Comment on above: Result Comment: Calc ulation based on the Chronic Kidney Disease Epidemiology Collaboration (CKD-EPI) equation refit without adjustment for race Performed By: #### L AB103, [id number], LAB15 ####Doughnut Dough Mixer: MARY SOTELO ([id number])[facility])[address] [place] [address] Glucose [Mass/Vol] 141 mg/dL High 70-100 [facility] Comment on above: Performed By: #### L AB103, [id number], LAB15 ####Doughnut Dough Mixer: MARY SOTELO ([id number])[facility])[address] [place] [address] Potassium [Moles/Vol] 4.2 mmol/L Normal 3.5-5.1 [facility] Comment on above: Performed By: #### L AB103, [id number], LAB15 ####Doughnut Dough Mixer: MARY SOTELO ([id number])[facility])[address] [place] [address] Sodium [Moles/Vol] 134 mmol/L Low 135-145 [facility] Comment on above: Performed By: #### L AB103, [id number], LAB15 ####Doughnut Dough Mixer: MARY SOTELO ([id number])[facility] ([facility])[address] [place] [address] Urea nitrogen [Mass/Vol] 23 mg/dL High 7-17 [facility] Comment on above: Performed By: #### L AB103, [id number], LAB15 ####Doughnut Dough Mixer: MARY SOTELO ([id number])[facility])[address] [place] [address] Basic metabolic 1998 panelon 08-07-2024 Anion gap [Moles/Vol] 1 mmol/L Low 3 - 13 mmol/L [facility] Calcium [Mass/Vol] 6.9 mg/dL Low 8.4 - 10. 4 mg/dL [facility] Chloride [Moles/Vol] 102 mmol/L 98 - 10 7 mmol/L [facility] CO2 [Moles/Vol] 31 mmol/L High 22 - 30 mmol/L [facility] Creatinine [Mass/Vol] 2.07 mg/dL High 0.52 - 1.04 mg/dL [facility] GFR/1.73 sq M.predicted (S/P/Bld) [Vol rate/Area] 26.3 mL/min Low - PINF [facility] Glucose [Mass/Vol] 141 mg/dL High 70 - 100 mg/dL [facility] Interpretation and review of laboratory results Abnormal [facility] Potassium [Moles/Vol] 4.2 mmol/L 3.5 - 5.1 mmol/L [facility] Sodium [Moles/Vol] 134 mmol/L Low 135 - 145 mmol/L [facility] Urea nitrogen [Mass/Vol] 23 mg/dL High 7 - 17 mg/dL [facility] CBC W Auto Differential pane l (Bld)Ordered By: Nicole Lakhani on 08-07-2024 Basophils (Bld) [#/Vol] 0.0 10*3/uL 0.0 - 0.2 10*3/uL [facility] Basophils/100 WBC (Bld) 0.1 % 0.0 - 2.0 % [facility] Eosinophils (Bld) [#/Vol] 0.5 10*3/uL 0.0 - 0.5 10*3/uL [facility] Eosinophils/100 WBC (Bld) 5.9 % 0.0 - 6.0 % [facility] Erythrocyte distribution width (RBC) [Ratio] 17.4 % High 11.5 - 15.0 % [facility] Hematocrit (Bld) [Volume fraction] 26.7 % Low 35.0 - 47.0 % [facility] Hemoglobin (Bld) [Mass/Vol] 8.1 g/dL Low 11.7 - 16.0 g/dL [facility] [employer] Immature granulocytes (Bld) [#/Vol] 0.1 10*3/uL High NINF - 0.1 10*3/uL [facility] [employer] Immature granulocytes/100 WBC (Bld) 1.0 % 0.0 - 2.0 % [facility] Interpretation and review of laboratory results Abnormal [facility] IPF 2 [facility] [employer] Lymphocytes (Bld) [#/Vol] 1.4 10*3/uL 1.0 - 4.3 10*3/uL [facility] Lymphocytes/100 WBC (Bld) 17.9 % 15.0 - 45.0 % [facility] MCH (RBC) [Entitic mass] 28.6 pg 26.0 - 34.0 pg [facility] [employer] MCHC (RBC) [Mass/Vol] 30.3 % Low 30.5 - 36.0 % [facility] [employer] MCV (RBC) [Entitic vol] 94.3 fL 77.0 - 99.0 fL [facility] [employer] Monocytes (Bld) [#/Vol] 0.6 10*3/uL 0.0 - 0.9 10*3/uL [facility] Monocytes/100 WBC (Bld) 7.2 % 5.0 - 13.0 % [facility] [employer] Neutrophils (Bld) [#/Vol] 5.5 10*3/uL 1.8 - 7.5 10*3/uL [facility] Neutrophils/100 WBC (Bld) 67.9 % 38.0 - 82.0 % [facility] [employer] Nucleated RBC/100 WBC (Bld) [Ratio] 0.0 % [facility] [employer] Platelet mean volume (Bld) [Entitic vol] 9.8 fL 9.0 - 12.7 fL [facility] [employer] Platelets (Bld) [#/Vol] 128 10*3/uL Low 140 - 440 10*3/uL [facility] RBC (Bld) [#/Vol] 2.83 10*6/uL Low 3.80 - 5.2 0 10*6/uL [facility] WBC (Bld) [#/Vol] 8.0 10*3/uL 3.6 - 10.7 10*3/uL [facility] CBC WITH AUTO DIFFERENTIALon 08-07-2024 Basophils (Bld) [#/Vol] 0.0 10*3/uL Normal 0.0-0.2 [facility] [employer] [facility] Comment on above: Performed By: #### L [id number] ####Doughnut Dough Mixer: MARY SOTELO ([id number])[address] Basophils/100 WBC (Bld) 0.1 % Normal 0.0-2.0 [facility] [employer] [facility] Comment on above: Performed By: #### L [id number] ####Doughnut Dough Mixer: MARY SOTELO ([id number])[facility])[address] [place] [address] Eosinophils (Bld) [#/Vol] 0.5 10*3/uL Normal 0.0-0.5 [facility] Comment on above: Performed By: #### L [id number] ####Doughnut Dough Mixer: MARY SOTELO ([id number])[facility])[address] [place] [address] Eosinophils/100 WBC (Bld) 5.9 % Normal 0.0-6.0 [facility] Comment on above: Performed By: #### L [id number] ####Doughnut Dough Mixer: MARY SOTELO ([id number])[facility])[address] [place] [address] Erythrocyte distribution width (RBC) [Ratio] 17.4 % High 11.5-15.0 [facility] Comment on above: Performed By: #### L [id number] ####Doughnut Dough Mixer: MARY SOTELO ([id number])[address] Hematocrit (Bld) [Volume fraction] 26.7 % Low 35.0-47.0 [facility] Comment on above: Performed By: #### L [id number] ####Doughnut Dough Mixer: MARY SOTELO ([id number])[address] Hemoglobin (Bld) [Mass/Vol] 8.1 g/dL Low 11.7-16.0 [facility] Comment on above: Performed By: #### L [id number] ####Doughnut Dough Mixer: MARY SOTELO ([id number])[address] IMMATURE GRANS % 1.0 % Normal 0.0-2.0 [facility] Comment on above: Performed By: #### L [id number] ####Doughnut Dough Mixer: MARY SOTELO ([id number])[address] IMMATURE GRANS ABSOLUTE 0.1 10*3/uL High <0.1 [facility] Comment on above: Performed By: #### L [id number] ####Doughnut Dough Mixer: MARY SOTELO ([id number])[facility])[address] [place] [address] [place] IPF 2 Normal [facility] Comment on above: Performed By: #### L [id number] ####Doughnut Dough Mixer: MARY SOTELO ([id number])[facility])[address] [place] [address] Lymphocytes (Bld) [#/Vol] 1.4 10*3/uL Normal 1.0-4.3 [facility] Comment on above: Performed By: #### L [id number] ####Doughnut Dough Mixer: MARY SOTELO ([id number])[facility])[address] [place] [address] Lymphocytes/100 WBC (Bld) 17.9 % Normal 15.0-45.0 [facility] Comment on above: Performed By: #### L [id number] ####Doughnut Dough Mixer: MARY SOTELO ([id number])[facility])[address] [place] [address] MCH (RBC) [Entitic mass] 28.6 pg Normal 26.0-34.0 [facility] Comment on above: Performed By: #### L [id number] ####Doughnut Dough Mixer: MARY SOTELO ([id number])[facility])[address] [place] [address] MCHC 30.3 % Low 30.5-36.0 [facility] Comment on above: Performed By: #### L [id number] ####Doughnut Dough Mixer: MARY SOTELO ([id number])[facility])[address] [place] [address] MCV (RBC) [Entitic vol] 94.3 fL Normal 77.0-99.0 [facility] Comment on above: Performed By: #### L [id number] ####Doughnut Dough Mixer: MARY SOTELO ([id number])[facility])[address] [place] [address] Monocytes (Bld) [#/Vol] 0.6 10*3/uL Normal 0.0-0.9 [facility] Comment on above: Performed By: #### L [id number] ####Doughnut Dough Mixer: MARY SOTELO ([id number])[facility] ([facility])[address] [place] [address] Monocytes/100 WBC (Bld) 7.2 % Normal 5.0-13.0 [facility] Comment on above: Performed By: #### L [id number] ####Doughnut Dough Mixer: MARY SOTELO ([id number])[facility] ([facility])[address] [place] [address] NEUTROPHILS ABSOLUTE 5.5 10*3/uL Normal 1.8-7.5 [facility] Comment on above: Performed By: #### L [id number] ####Doughnut Dough Mixer: MARY SOTELO ([id number])[facility] ([facility])[address] [place] [address] Neutrophils/100 WBC (Bld) 67.9 % Normal 38.0-82.0 [facility] Comment on above: Performed By: #### L [id number] ####Doughnut Dough Mixer: MARY SOTELO ([id number])[facility] ([facility])[address] [place] [address] NRBC 0.0 /100 WBCs Normal 0.0-2.0 [facility] Comment on above: Performed By: #### L [id number] ####Doughnut Dough Mixer: MARY SOTELO ([id number])[facility] ([facility])[address] [place] [address] Platelet mean volume (Bld) [Entitic vol] 9.8 fL Normal 9.0-12.7 [facility] Comment on above: Performed By: #### L [id number] ####Doughnut Dough Mixer: MARY SOTELO ([id number])[facility] ([facility])[address] [place] [address] Platelets (Bld) [#/Vol] 128 10*3/uL Low 140-440 [facility] Comment on above: Performed By: #### L [id number] ####Doughnut Dough Mixer: MARY SOTELO ([id number])[facility] ([facility])[address] [place] [address] RBC (Bld) [#/Vol] 2.83 10*6/uL Low 3.80-5.20 [facility] Comment on above: Performed By: #### L [id number] ####Doughnut Dough Mixer: MARY SOTELO ([id number])[facility] ([facility])[address] [place] [address] WBC (Bld) [#/Vol] 8.0 10*3/uL Normal 3.6-10.7 [facility] Comment on above: Performed By: #### L [id number] ####Doughnut Dough Mixer: MARY SOTELO ([id number])[facility] ([facility])[address] [place] [address] IDNon 08-07-2024 IDN Normal [facility] IDN Normal [facility] Laboratory - Chemistry and C hemistry - challengeon 08-07-2024 Glucose [Mass/Vol] 176 mg/dL High 70 - 100 mg/dL [facility] Glucose [Mass/Vol] 283 mg/dL High 70 - 100 mg/dL [facility] Glucose [Mass/Vol] 249 mg/dL High 70 - 100 mg/dL [facility] Glucose [Mass/Vol] 179 mg/dL High 70 - 100 mg/dL [facility] Magnesium [Mass/Vol] 1.9 mg/dL 1.6 - 2 .3 mg/dL [facility] MAGNESIUMon 08-07-2024 Magnesium [Mass/Vol] 1.9 mg/dL Normal 1.6-2.3 [facility] Comment on above: Performed By: #### L AB103, [id number], LAB15 ####Doughnut Dough Mixer: MARY SOTELO ([id number])[facility] ([facility])[address] [place] [address] No Panel Informationon 08-07 Interpretation and review of laboratory results Abnormal [facility] Interpretation and review of laboratory results Abnormal [facility] Interpretation and review of laboratory results Abnormal [facility] Interpretation and review of laboratory results Abnormal [facility] Interpretation and review of laboratory results Normal [facility] Nursing Noteon 08-07-2024 Nursing Note Normal [facility] PHOSPHORUSon 08-07-2024 Phosphate [Mass/Vol] 3.7 mg/dL Normal 2.5-4.5 [facility] Comment on above: Performed By: #### L AB103, [id number], LAB15 ####Doughnut Dough Mixer: MARY SOTELO ([id number])[facility] [place] [address] [place] Phosphate [Moles/Vol]on Phosphate [Mass/Vol] 3.7 mg/dL 2.5 - 4 .5 mg/dL [facility] Progress Noteon 08-07-2024 Progress Note Normal [facility] Progress Note Normal [facility] RESPIRATORY PATHOGENS PANEL BY PCRon 08-07-2024 RESPIRATORY PATHOGENS PANEL BY PCR Normal [facility] Comment on above: Performed By: #### L [id number] ####Doughnut D[employer] Mixer: MARY SOTELO ([id number])[facility] [place] [address] Respiratory pathogens DNA an d RNA panel MARISA+non-probe (Nph)on 08-07-2024 Adenovirus Not detected Not Detected [facility] B. pertussis DNA MARISA+probe Ql (Unsp spec) Not detected Not Detected [facility] Bordetella parapertussis Not detected Not Detected [facility] Chlamydia pneumoniae Not detected Not Detected [facility] Coronavirus 229E Not detected Not Detected [facility] Coronavirus HKU1 Not detected Not Detected [facility] Coronavirus NL63 Not detected Not Detected [facility] Coronavirus OC43 Not detected Not Detected [facility] FLUAV RNA MARISA+non-probe Ql (Nph) Not detected Not Detected [facility] FLUBV RNA MARISA+non-probe Ql (Nph) Not detected Not Detected [facility] Human Metapneumovirus Not detected Not Detected [facility] Human Rhinovirus/Enterovirus Not detected Not Detected [facility] Interpretation and review of laboratory results Normal [facility] Mycoplasma pneumoniae Not detected Not Detected [facility] Parainfluenza 1 Not detected Not Detected [facility] Parainfluenza 2 Not detected Not Detected [facility] Parainfluenza 3 Not detected Not Detected [facility] Parainfluenza 4 Not detected Not Detected [facility] Respiratory Syncytial Virus Not detected Not Detected [facility] SARS-CoV-2 (COVID-19) RNA MARISA+non-probe Ql (Nph) Not detected Not Detected [facility] BASIC METABOLIC PANELon 10-0 Anion gap [Moles/Vol] 2 mmol/L Low 3-13 [facility] Comment on above: Performed By: #### L AB103, LAB15, [id number] ####Doughnut D[employer] Mixer: MARY SOTELO ([id number])[facility])[address] [place] [address] Calcium [Mass/Vol] 7.4 mg/dL Low 8.4-10.4 [facility] Comment on above: Performed By: #### L AB103, LAB15, [id number] ####Doughnut D[employer]er: MARY SOTELO ([id number])[facility] [place] [address] [place] Chloride [Moles/Vol] 99 mmol/L Normal 98-107 [facility] Comment on above: Performed By: #### L AB103, LAB15, [id number] ####Doughnut D[employer] Mixer: MARY SOTELO ([id number])[facility] ([facility])[address] [place] [address] [place] CO2 [Moles/Vol] 32 mmol/L High 22-30 [facility] Comment on above: Performed By: #### L AB103, LAB15, [id number] ####Doughnut D[employer] Mixer: MARY SOTELO ([id number])[facility] ([facility])[address] [place] [address] [place] Creatinine [Mass/Vol] 1.40 mg/dL High 0.52-1.04 [facility] Comment on above: Performed By: #### L AB103, LAB15, [id number] ####D[employer]er: MARY SOTELO ([id number])[facility] [address] GLOMERULAR FILTRATION RATE ML/MIN/1.73 SQ M.PREDICTED 42.1 mL/min/1.73m*2 Low >60.0 [facility] Comment on above: Result Comment: Calc ulation based on the Chronic Kidney Disease Epidemiology Collaboration (CKD-EPI) equation refit without adjustment for race Performed By: #### L AB103, LAB15, [id number] ####Doughnut Dough Mixer: MARY SOTELO ([id number])[facility])[address] [place] [address] Glucose [Mass/Vol] 184 mg/dL High 70-100 [facility] Comment on above: Performed By: #### L AB103, LAB15, [id number] ####D[employer] Dough Mixer: MARY SOTELO ([id number])[address] Potassium [Moles/Vol] 3.1 mmol/L Low 3.5-5.1 [facility] Comment on above: Performed By: #### L AB103, LAB15, [id number] ####D[employer]er: MARY SOTELO ([id number])[address] Sodium [Moles/Vol] 133 mmol/L Low 135-145 [facility] Comment on above: Performed By: #### L AB103, LAB15, [id number] ####[employer]: MARY SOTELO ([id number])[address] Urea nitrogen [Mass/Vol] 16 mg/dL Normal 7-17 [facility] Comment on above: Performed By: #### L AB103, LAB15, [id number] ####[employer]: MARY SOTELO ([id number])[address] BLOOD TYPE AND SCREEN GELon 08-06-2024 ABO GROUPING O Normal [facility] Comment on above: Performed By: #### L [id number] ####D[employer]er: MARY [id number])[facility] ([facility])[address] RH TYPE IN BLOOD Positive Normal [facility] Comment on above: Performed By: #### L [id number] ####[employer]er: MARY SOTELO ([id number])[facility] ([facility])[address] [place] [address] Basic metabolic 1998 panelon 08-06-2024 Anion gap [Moles/Vol] 2 mmol/L Low 3 - 13 mmol/L [facility] Calcium [Mass/Vol] 7.4 mg/dL Low 8.4 - 10. 4 mg/dL [facility] Chloride [Moles/Vol] 99 mmol/L 98 - 10 7 mmol/L [facility] CO2 [Moles/Vol] 32 mmol/L High 22 - 30 mmol/L [facility] Creatinine [Mass/Vol] 1.40 mg/dL High 0.52 - 1.04 mg/dL [facility] GFR/1.73 sq M.predicted (S/P/Bld) [Vol rate/Area] 42.1 mL/min Low - PINF [facility] Glucose [Mass/Vol] 184 mg/dL High 70 - 100 mg/dL [facility] Interpretation and review of laboratory results Abnormal [facility] Potassium [Moles/Vol] 3.1 mmol/L Low 3.5 - 5.1 mmol/L [facility] Sodium [Moles/Vol] 133 mmol/L Low 135 - 145 mmol/L [facility] Urea nitrogen [Mass/Vol] 16 mg/dL 7 - 17 mg/dL [facility] Blood type and Crossmatch pa eunice (Bld)on 08-06-2024 ABO group Nom (Bld) O [facility] Blood group antibody screen GEL Ql Negative [facility] D Ag Ql (RBC) [facility] [place] Per nephro - UMA. Ho pe to recover . Line is tunneled . Nephrology updated on plans to work on out pt and placement . Normal [facility] [place] Normal [facility] [place] Normal [facility] Normal [facility] System [facility] Normal [facility] CBC W Auto Differential pane l (Bld)on 08-06-2024 Basophils (Bld) [#/Vol] 0.0 10*3/uL 0.0 - 0.2 10*3/uL [facility] Basophils/100 WBC (Bld) 0.2 % 0.0 - 2.0 % [facility] Eosinophils (Bld) [#/Vol] 0.4 10*3/uL 0.0 - 0.5 10*3/uL [facility] Eosinophils/100 WBC (Bld) 6.6 % High 0.0 - 6.0 % [facility] Erythrocyte distribution width (RBC) [Ratio] 17.8 % High 11.5 - 15.0 % [facility] Hematocrit (Bld) [Volume fraction] 21.6 % Low 35.0 - 47.0 % [facility] Hemoglobin (Bld) [Mass/Vol] 6.6 g/dL Critically low 11.7 - 16.0 g/dL [facility] Immature granulocytes (Bld) [#/Vol] 0.1 10*3/uL High NINF - 0.1 10*3/uL [facility] Immature granulocytes/100 WBC (Bld) 0.8 % 0.0 - 2.0 % [facility] Interpretation and review of laboratory results Abnormal [facility] IPF 3 [facility] Lymphocytes (Bld) [#/Vol] 1.2 10*3/uL 1.0 - 4.3 10*3/uL [facility] Lymphocytes/100 WBC (Bld) 17.9 % 15.0 - 45.0 % [facility] MCH (RBC) [Entitic mass] 28.4 pg 26.0 - 34.0 pg [facility] MCHC (RBC) [Mass/Vol] 30.6 % 30.5 - 36.0 % [facility] MCV (RBC) [Entitic vol] 93.1 fL 77.0 - 99.0 fL [facility] Monocytes (Bld) [#/Vol] 0.5 10*3/uL 0.0 - 0.9 10*3/uL [facility] Monocytes/100 WBC (Bld) 7.2 % 5.0 - 13.0 % [facility] Neutrophils (Bld) [#/Vol] 4.4 10*3/uL 1.8 - 7.5 10*3/uL [facility] Neutrophils/100 WBC (Bld) 67.3 % 38.0 - 82.0 % [facility] Nucleated RBC/100 WBC (Bld) [Ratio] 0.0 % [facility] Platelet mean volume (Bld) [Entitic vol] 10.6 fL 9.0 - 12.7 fL [facility] Platelets (Bld) [#/Vol] 120 10*3/uL Low 140 - 440 10*3/uL [facility] RBC (Bld) [#/Vol] 2.32 10*6/uL Low 3.80 - 5.2 0 10*6/uL [facility] WBC (Bld) [#/Vol] 6.5 10*3/uL 3.6 - 10.7 10*3/uL [facility] CBC WITH AUTO DIFFERENTIALon 08-06-2024 Basophils (Bld) [#/Vol] 0.0 10*3/uL Normal 0.0-0.2 [facility] Comment on above: Performed By: #### L [id number] ####[employer]er: MARY SOTELO ([id number])[address] Basophils/100 WBC (Bld) 0.2 % Normal 0.0-2.0 [facility] Comment on above: Performed By: #### L [id number] ####[employer]er: MARY SOTELO ([id number])[facility])[address] [place] [address] [place] Eosinophils (Bld) [#/Vol] 0.4 10*3/uL Normal 0.0-0.5 [facility] Comment on above: Performed By: #### L [id number] ####[employer]er: MARY SOTELO ([id number])[facility])[address] [place] [address] [place] Eosinophils/100 WBC (Bld) 6.6 % High 0.0-6.0 [facility] Comment on above: Performed By: #### L [id number] ####[employer]er: MARY [id number])[facility])[address] [place] [address] Erythrocyte distribution width (RBC) [Ratio] 17.8 % High 11.5-15.0 [facility] Comment on above: Performed By: #### L [id number] ####[employer]: MARY SOTELO ([id number])[facility])[address] [place] [address] Hematocrit (Bld) [Volume fraction] 21.6 % Low 35.0-47.0 [facility] Comment on above: Performed By: #### L [id number] ####[employer]: MARY SOTELO ([id number])[facility])[address] [place] [address] Hemoglobin (Bld) [Mass/Vol] 6.6 g/dL Critically low 11.7-16.0 [facility] Comment on above: Performed By: #### L [id number] ####[employer]er: MARY SOTELO ([id number])[facility])[address] [place] [address] IMMATURE GRANS % 0.8 % Normal 0.0-2.0 [facility] Comment on above: Performed By: #### L [id number] ####[employer]er: MARY SOTELO ([id number])[facility])[address] [place] [address] IMMATURE GRANS ABSOLUTE 0.1 10*3/uL High <0.1 [facility] Comment on above: Performed By: #### L [id number] ####[employer]er: MARY SOTELO ([id number])[facility])[address] [place] [address] [place] IPF 3 Normal [facility] Comment on above: Performed By: #### L [id number] ####[employer]er: MARY SOTELO ([id number])[facility])[address] [place] [address] Lymphocytes (Bld) [#/Vol] 1.2 10*3/uL Normal 1.0-4.3 [facility] Comment on above: Performed By: #### L [id number] ####[employer]er: MARY SOTELO ([id number])[facility])[address] [place] [address] Lymphocytes/100 WBC (Bld) 17.9 % Normal 15.0-45.0 [facility] Comment on above: Performed By: #### L [id number] ####[employer]er: MARY SOTELO ([id number])[facility])[address] [place] [address] MCH (RBC) [Entitic mass] 28.4 pg Normal 26.0-34.0 [facility] Comment on above: Performed By: #### L [id number] ####[employer]er: MARY SOTELO ([id number])[facility])[address] [place] [address] MCHC 30.6 % Normal 30.5-36.0 [facility] Comment on above: Performed By: #### L [id number] ####[employer]er: MARY SOTELO ([id number])[facility])[address] [place] [address] MCV (RBC) [Entitic vol] 93.1 fL Normal 77.0-99.0 [facility] Comment on above: Performed By: #### L [id number] ####[employer]er: MARY SOTELO ([id number])[facility])[address] [place] [address] Monocytes (Bld) [#/Vol] 0.5 10*3/uL Normal 0.0-0.9 [facility] Comment on above: Performed By: #### L [id number] ####[employer]er: AMRY SOTELO ([id number])[facility])[address] [place] [address] Monocytes/100 WBC (Bld) 7.2 % Normal 5.0-13.0 [facility] Comment on above: Performed By: #### L [id number] ####D[employer]er: MARY SOTELO ([id number])[facility] ([facility])[address] [place] [address] NEUTROPHILS ABSOLUTE 4.4 10*3/uL Normal 1.8-7.5 [facility] Comment on above: Performed By: #### L [id number] ####D[employer]er: MARY SOTELO ([id number])[facility] ([facility])[address] [place] [address] Neutrophils/100 WBC (Bld) 67.3 % Normal 38.0-82.0 [facility] Comment on above: Performed By: #### L [id number] ####D[employer]er: MARY SOTELO ([id number])[facility] ([facility])[address] [place] [address] NRBC 0.0 /100 WBCs Normal 0.0-2.0 [facility] Comment on above: Performed By: #### L [id number] ####D[employer] Mixer: MARY SOTELO ([id number])[facility] ([facility])[address] [place] [address] Platelet mean volume (Bld) [Entitic vol] 10.6 fL Normal 9.0-12.7 [facility] Comment on above: Performed By: #### L [id number] ####D[employer]er: MARY SOTELO ([id number])[facility] ([facility])[address] [place] [address] Platelets (Bld) [#/Vol] 120 10*3/uL Low 140-440 [facility] Comment on above: Performed By: #### L [id number] ####[employer]er: MARY SOTELO ([id number])[facility] ([facility])[address] [place] [address] RBC (Bld) [#/Vol] 2.32 10*6/uL Low 3.80-5.20 [facility] Comment on above: Performed By: #### L [id number] ####[employer]er: MARY SOTELO ([id number])[facility] ([facility])[address] [place] [address] WBC (Bld) [#/Vol] 6.5 10*3/uL Normal 3.6-10.7 [facility] Comment on above: Performed By: #### L [id number] ####[employer]er: MARY SOTELO ([id number])[facility] ([facility])[address] [place] [address] HEMOGLOBIN AND HEMATOCRIT, B LOODon 08-06-2024 Hematocrit (Bld) [Volume fraction] 25.2 % Low 35.0-47.0 [facility] Comment on above: Order Comment: Recom mend 1 hour post transfusion Performed By: #### L [id number] ####D[employer]er: MARY SOTELO ([id number])[facility] ([facility])[address] [place] [address] Hemoglobin (Bld) [Mass/Vol] 7.9 g/dL Low 11.7-16.0 [facility] Comment on above: Order Comment: Recom mend 1 hour post transfusion Performed By: #### L [id number] ####D[employer]er: MARY SOTELO ([id number])[facility] ([facility])[address] [place] [address] Hemoglobin (Bld) [Mass/Vol]o n 08-06-2024 Hematocrit (Bld) [Volume fraction] 25.2 % Low 35.0 - 47.0 % [facility] Interpretation and review of laboratory results Abnormal [facility] IDNon 08-06-2024 IDN The patient is Moderately Stable - Low risk of patient condition declining or worsening The patient's goals for the shift include The clinical goals for the shift include Normal [facility] IDN Normal [facility] IDN Normal [facility] Laboratory - Chemistry and C hemistry - challengeon 08-06-2024 Glucose [Mass/Vol] 271 mg/dL High 70 - 100 mg/dL [facility] Glucose [Mass/Vol] 305 mg/dL High 70 - 100 mg/dL [facility] Glucose [Mass/Vol] 333 mg/dL High 70 - 100 mg/dL [facility] Glucose [Mass/Vol] 199 mg/dL High 70 - 100 mg/dL [facility] Magnesium [Mass/Vol] 1.9 mg/dL 1.6 - 2 .3 mg/dL [facility] Laboratory - Hematology and Cell countson 08-06-2024 Hemoglobin (Bld) [Mass/Vol] 7.9 g/dL Low 11.7 - 16.0 g/dL [facility] MAGNESIUMon 08-06-2024 Magnesium [Mass/Vol] 1.9 mg/dL Normal 1.6-2.3 [facility] Comment on above: Performed By: #### L AB103, LAB15, [id number] ####D[employer]er: MARY SOTELO ([id number])[facility] ([facility])[address] [place] [address] Magnesium [Mass/Vol]on 08-06 Interpretation and review of laboratory results Normal [facility] No Panel Informationon 08-06 Interpretation and review of laboratory results Abnormal [facility] Interpretation and review of laboratory results Abnormal [facility] Interpretation and review of laboratory results Abnormal [facility] Interpretation and review of laboratory results Abnormal [facility] Blood Expiration Date S [facility] Crossmatch interpretation COMP [facility] Dispense Status Transfused [facility] Product Blood Type 5100 [facility] PRODUCT CODE [id number] [facility] Unit ABO O [facility] Unit Number [id number] [facility] RH Positive [facility] Unit Volume 300 mL [facility] Nursing Noteon 08-06-2024 Nursing Note Patient bladder scanned for 113 ml. Patient states she does not need to void. Message sent to Dr Jarrett Normal [facility] Nursing Note Central line dressin g changed, patient tolerated well Normal [facility] Nursing Note Johnson removed per orders, patient tolerated well Normal [facility] PHOSPHORUSon 08-06-2024 Phosphate [Mass/Vol] 2.2 mg/dL Low 2.5-4.5 [facility] Comment on above: Performed By: #### L AB103, LAB15, [id number] ####D[employer] D[employer]er: MARY SOTELO ([id number])[facility] [place] [address] [place] Phosphate [Moles/Vol]on Interpretation and review of laboratory results Abnormal [facility] Phosphate [Mass/Vol] 2.2 mg/dL Low 2.5 - 4 .5 mg/dL [facility] Progress Noteon 08-06-2024 Progress Note Normal [facility] Progress [facility] Progress Note Normal [facility] Progress Note OCCUPATIONAL THERAPY [facility] Name/MRN: Sandy Deng ([id number]) Date: 08/06/2024 Hold OT this a.m.; HgB 6.6 with order to transfuse. Will follow and treat as appropriate. GUILLERMO Taylor Normal [facility] Progress Note Normal [facility] BASIC METABOLIC PANELon Anion gap [Moles/Vol] 0 mmol/L Low 3-13 [facility] Comment on above: Performed By: #### L AB103, NPN672, LAB15 ####D[employer] D[employer] Mixer: MARY SOTELO ([id number])[facility] [place] [address] [place] Calcium [Mass/Vol] 6.7 mg/dL Low 8.4-10.4 [facility] Comment on above: Performed By: #### L AB103, FTE099, LAB15 ####D[employer] D[employer] Mixer: MARY SOTELO ([id number])[facility] [place] [address] [place] Chloride [Moles/Vol] 105 mmol/L Normal 98-107 [facility] Comment on above: Performed By: #### L AB103, FQC124, LAB15 ####Doughnut Dough Mixer: MARY SOTELO ([id number])[facility] [place] [address] [place] CO2 [Moles/Vol] 26 mmol/L Normal 22-30 [facility] Comment on above: Performed By: #### L AB103, [id number], LAB15 ####Doughnut Dough Mixer: MARY SOTELO ([id number])[facility] ([facility])[address] [place] [address] Creatinine [Mass/Vol] 2.56 mg/dL High 0.52-1.04 [facility] Comment on above: Performed By: #### L AB103, [id number], LAB15 ####Doughnut Dough Mixer: MARY SOTELO ([id number])[facility] ([facility])[address] [place] [address] GLOMERULAR FILTRATION RATE ML/MIN/1.73 SQ M.PREDICTED 20.4 mL/min/1.73m*2 Low >60.0 [facility] Comment on above: Result Comment: Calc ulation based on the Chronic Kidney Disease Epidemiology Collaboration (CKD-EPI) equation refit without adjustment for race Performed By: #### L AB103, [id number], LAB15 ####Doughnut D[employer] Mixer: MARY SOTELO ([id number])[facility] ([facility])[address] [place] [address] Glucose [Mass/Vol] 151 mg/dL High 70-100 [facility] Comment on above: Performed By: #### L AB103, OOC500, LAB15 ####D[employer]nut Dough Mixer: MARY SOTELO ([id number])[facility] ([facility])[address] [place] [address] Potassium [Moles/Vol] 4.0 mmol/L Normal 3.5-5.1 [facility] Comment on above: Performed By: #### L AB103, BAS042, LAB15 ####Doughnut Dough Mixer: MARY SOTELO ([id number])[facility] ([facility])[address] [place] [address] [place] Sodium [Moles/Vol] 132 mmol/L Low 135-145 [facility] Comment on above: Performed By: #### L AB103, [id number], LAB15 ####Doughnut Dough Mixer: MARY SOTELO ([id number])[facility])[address] [place] [address] Urea nitrogen [Mass/Vol] 35 mg/dL High 7-17 [facility] Comment on above: Performed By: #### L AB103, [id number], LAB15 ####Doughnut D[employer] Mixer: MARY SOTELO ([id number])[facility] ([facility])[address] [place] [address] Basic metabolic 1998 panelon 08-05-2024 Anion gap [Moles/Vol] 0 mmol/L Low 3 - 13 mmol/L [facility] Calcium [Mass/Vol] 6.7 mg/dL Low 8.4 - 10. 4 mg/dL [facility] Chloride [Moles/Vol] 105 mmol/L 98 - 10 7 mmol/L [facility] CO2 [Moles/Vol] 26 mmol/L 22 - 30 mmol/L [facility] Creatinine [Mass/Vol] 2.56 mg/dL High 0.52 - 1.04 mg/dL [facility] GFR/1.73 sq M.predicted (S/P/Bld) [Vol rate/Area] 20.4 mL/min Low - PINF [facility] Glucose [Mass/Vol] 151 mg/dL High 70 - 100 mg/dL [facility] Interpretation and review of laboratory results Abnormal [facility] Potassium [Moles/Vol] 4.0 mmol/L 3.5 - 5.1 mmol/L [facility] Sodium [Moles/Vol] 132 mmol/L Low 135 - 145 mmol/L [facility] Urea nitrogen [Mass/Vol] 35 mg/dL High 7 - 17 mg/dL [facility] CARECOORDon 08-05-2024 [facility] requested PT/OT t o see today via see today tool to start auth. Normal [facility] CBC W Auto Differential pane l (Bld)on 08-05-2024 Basophils (Bld) [#/Vol] 0.0 10*3/uL 0.0 - 0.2 10*3/uL [facility] Basophils/100 WBC (Bld) 0.0 % 0.0 - 2.0 % [facility] Eosinophils (Bld) [#/Vol] 0.0 10*3/uL 0.0 - 0.5 10*3/uL [facility] Eosinophils/100 WBC (Bld) 0.5 % 0.0 - 6.0 % [facility] Erythrocyte distribution width (RBC) [Ratio] 17.7 % High 11.5 - 15.0 % [facility] [employer] Hematocrit (Bld) [Volume fraction] 23.6 % Low 35.0 - 47.0 % [facility] [employer] Hemoglobin (Bld) [Mass/Vol] 7.4 g/dL Low 11.7 - 16.0 g/dL [facility] [employer] Immature granulocytes (Bld) [#/Vol] 0.1 10*3/uL High NINF - 0.1 10*3/uL [facility] Immature granulocytes/100 WBC (Bld) 0.7 % 0.0 - 2.0 % [facility] Interpretation and review of laboratory results Abnormal [facility] [employer] Lymphocytes (Bld) [#/Vol] 0.7 10*3/uL Low 1.0 - 4.3 10*3/uL [facility] [employer] Lymphocytes/100 WBC (Bld) 9.8 % Low 15.0 - 45.0 % [facility] [employer] MCH (RBC) [Entitic mass] 28.4 pg 26.0 - 34.0 pg [facility] [employer] MCHC (RBC) [Mass/Vol] 31.4 % 30.5 - 36.0 % [facility] [employer] MCV (RBC) [Entitic vol] 90.4 fL 77.0 - 99.0 fL [facility] [employer] Monocytes (Bld) [#/Vol] 0.3 10*3/uL 0.0 - 0.9 10*3/uL [facility] [employer] Monocytes/100 WBC (Bld) 4.2 % Low 5.0 - 13.0 % [facility] [employer] Neutrophils (Bld) [#/Vol] 6.3 10*3/uL 1.8 - 7.5 10*3/uL [facility] Neutrophils/100 WBC (Bld) 84.8 % High 38.0 - 82.0 % [facility] [employer] Nucleated RBC/100 WBC (Bld) [Ratio] 0.0 % [facility] [employer] Platelet mean volume (Bld) [Entitic vol] 10.0 fL 9.0 - 12.7 fL [facility] [employer] Platelets (Bld) [#/Vol] 168 10*3/uL 140 - 440 10*3/uL [facility] RBC (Bld) [#/Vol] 2.61 10*6/uL Low 3.80 - 5.2 0 10*6/uL [facility] WBC (Bld) [#/Vol] 7.4 10*3/uL 3.6 - 10.7 10*3/uL [facility] CBC WITH AUTO DIFFERENTIALon 08-05-2024 Basophils (Bld) [#/Vol] 0.0 10*3/uL Normal 0.0-0.2 [facility] Comment on above: Performed By: #### L [id number] ####[employer]: MARY SOTELO ([id number])[facility])[address] [place] [address] Basophils/100 WBC (Bld) 0.0 % Normal 0.0-2.0 [facility] Comment on above: Performed By: #### L [id number] ####[employer]: MARY SOTELO ([id number])[facility])[address] [place] [address] Eosinophils (Bld) [#/Vol] 0.0 10*3/uL Normal 0.0-0.5 [facility] Comment on above: Performed By: #### L [id number] ####[employer]: MARY SOTELO ([id number])[facility])[address] [place] [address] Eosinophils/100 WBC (Bld) 0.5 % Normal 0.0-6.0 [facility] Comment on above: Performed By: #### L [id number] ####[employer]: MARY SOTELO ([id number])[facility])[address] [place] [address] Erythrocyte distribution width (RBC) [Ratio] 17.7 % High 11.5-15.0 [facility] Comment on above: Performed By: #### L [id number] ####[employer]: MARY SOTELO ([id number])[facility])[address] [place] [address] Hematocrit (Bld) [Volume fraction] 23.6 % Low 35.0-47.0 [facility] Comment on above: Performed By: #### L [id number] ####[employer]: MARY [id number])[facility] ([facility])[address] [place] [address] Hemoglobin (Bld) [Mass/Vol] 7.4 g/dL Low 11.7-16.0 [facility] Comment on above: Performed By: #### L [id number] ####[employer]: MARY SOTELO ([id number])[facility])[address] [place] [address] IMMATURE GRANS % 0.7 % Normal 0.0-2.0 [facility] Comment on above: Performed By: #### L [id number] ####Doughnut Dough Mixer: MARY SOTELO ([id number])[facility])[address] [place] [address] IMMATURE GRANS ABSOLUTE 0.1 10*3/uL High <0.1 [facility] Comment on above: Performed By: #### L [id number] ####Doughnut Dough Mixer: MARY SOTELO ([id number])[facility])[address] [place] [address] Lymphocytes (Bld) [#/Vol] 0.7 10*3/uL Low 1.0-4.3 [facility] Comment on above: Performed By: #### L [id number] ####Doughnut Dough Mixer: MARY SOTELO ([id number])[facility])[address] [place] [address] Lymphocytes/100 WBC (Bld) 9.8 % Low 15.0-45.0 [facility] Comment on above: Performed By: #### L [id number] ####Doughnut Dough Mixer: MARY SOTELO ([id number])[facility])[address] [place] [address] MCH (RBC) [Entitic mass] 28.4 pg Normal 26.0-34.0 [facility] Comment on above: Performed By: #### L [id number] ####Doughnut Dough Mixer: MARY SOTELO ([id number])[facility])[address] [place] [address] MCHC 31.4 % Normal 30.5-36.0 [facility] Comment on above: Performed By: #### L [id number] ####Doughnut Dough Mixer: MARY SOTELO ([id number])[facility])[address] [place] [address] MCV (RBC) [Entitic vol] 90.4 fL Normal 77.0-99.0 [facility] Comment on above: Performed By: #### L [id number] ####Doughnut Dough Mixer: MARY SOTELO ([id number])[facility])[address] [place] [address] Monocytes (Bld) [#/Vol] 0.3 10*3/uL Normal 0.0-0.9 [facility] Comment on above: Performed By: #### L [id number] ####Doughnut Dough Mixer: MARY SOTELO ([id number])[facility])[address] [place] [address] Monocytes/100 WBC (Bld) 4.2 % Low 5.0-13.0 [facility] Comment on above: Performed By: #### L [id number] ####Doughnut Dough Mixer: MARY SOTELO ([id number])[facility] ([facility])[address] [place] [address] NEUTROPHILS ABSOLUTE 6.3 10*3/uL Normal 1.8-7.5 [facility] Comment on above: Performed By: #### L [id number] ####Doughnut Dough Mixer: MARY SOTELO ([id number])[facility])[address] [place] [address] Neutrophils/100 WBC (Bld) 84.8 % High 38.0-82.0 [facility] Comment on above: Performed By: #### L [id number] ####Doughnut Dough Mixer: MARY SOTELO ([id number])[facility])[address] [place] [address] NRBC 0.0 /100 WBCs Normal 0.0-2.0 [facility] Comment on above: Performed By: #### L [id number] ####Doughnut Dough Mixer: MARY SOTELO ([id number])[facility] ([facility])[address] [place] [address] Platelet mean volume (Bld) [Entitic vol] 10.0 fL Normal 9.0-12.7 [facility] Comment on above: Performed By: #### L [id number] ####Doughnut Dough Mixer: MARY SOTELO ([id number])[facility] ([facility])[address] [place] [address] Platelets (Bld) [#/Vol] 168 10*3/uL Normal 140-440 [facility] Comment on above: Performed By: #### L [id number] ####Doughnut Dough Mixer: MARY SOTELO ([id number])[facility] ([facility])[address] [place] [address] RBC (Bld) [#/Vol] 2.61 10*6/uL Low 3.80-5.20 [facility] Comment on above: Performed By: #### L [id number] ####Doughnut Dough Mixer: MARY SOTELO ([id number])[facility] ([facility])[address] [place] [address] WBC (Bld) [#/Vol] 7.4 10*3/uL Normal 3.6-10.7 [facility] Comment on above: Performed By: #### L [id number] ####Doughnut Dough Mixer: MARY SOTELO ([id number])[facility] ([facility])[address] [place] [address] LACTIC ACID WITH REFLEXon Lactate [Moles/Vol] 0.5 mmol/L Low 0.7-2.0 [facility] Comment on above: Performed By: #### L [id number] ####Doughnut Dough Mixer: MARY SOTELO ([id number])[facility])[address] [place] [address] Laboratory - Chemistry and C hemistry - challengeon 08-05-2024 Glucose [Mass/Vol] 341 mg/dL High 70 - 100 mg/dL [facility] Glucose [Mass/Vol] 303 mg/dL High 70 - 100 mg/dL [facility] Procalcitonin [Mass/Vol] 0.16 ng/mL High 0.00 - 0.09 ng/mL [facility] Glucose [Mass/Vol] 285 mg/dL High 70 - 100 mg/dL [facility] Glucose [Mass/Vol] 139 mg/dL High 70 - 100 mg/dL [facility] Magnesium [Mass/Vol] 2.2 mg/dL 1.6 - 2 .3 mg/dL [facility] Lactate [Moles/Vol] 0.5 mmol/L Low 0.7 - 2. 0 mmol/L [facility] MAGNESIUMon 08-05-2024 Magnesium [Mass/Vol] 2.2 mg/dL Normal 1.6-2.3 [facility] Comment on above: Performed By: #### L AB103, [id number], LAB15 ####Doughnut Dough Mixer: MARY SOTELO ([id number])[address] No Panel Informationon 08-05 Interpretation and review of laboratory results Abnormal [facility] Interpretation and review of laboratory results Abnormal [facility] Interpretation and review of laboratory results Abnormal [facility] Interpretation and review of laboratory results Abnormal [facility] Interpretation and review of laboratory results Normal [facility] Interpretation and review of laboratory results Abnormal [facility] Nursing Noteon 08-05-2024 Nursing Note Normal [facility] PHOSPHORUSon 08-05-2024 Phosphate [Mass/Vol] 3.6 mg/dL Normal 2.5-4.5 [facility] Comment on above: Performed By: #### L AB103, [id number], LAB15 ####Doughnut Dough Mixer: MARY SOTELO ([id number])[facility])[address] [place] [address] PROCALCITONIN TESTon 024 PROCALCITONIN 0.16 ng/mL High 0.00-0.09 [facility] Comment on above: Result Comment: ORDE R COMMENTS:PCT <0.50 = Low risk of severe sepsis and/or septic shock.PCT >2.00 = High risk of severe sepsis and/or septic shock. Performed By: #### L [id number] ####Doughnut Dough Mixer: MARY SOTELO ([id number])[facility])[address] [place] [address] [place] Phosphate [Moles/Vol]on Phosphate [Mass/Vol] 3.6 mg/dL 2.5 - 4 .5 mg/dL [facility] Procalcitonin [Mass/Vol]on Interpretation and review of laboratory results Abnormal [facility] Progress Noteon 08-05-2024 Progress Note Normal [facility] Progress Note Normal [facility] Progress Note Normal [facility] Progress Note Normal [facility] Progress Note Normal [facility] Progress Note Normal [facility] XR CHEST 1 VIEWon 08-05-2024 XR CHEST 1 VIEW Normal [facility] XR Chest Single viewon 08-05 [facility] Radiology Study observation (narrative) [facility] BASIC METABOLIC PANELon Anion gap [Moles/Vol] 4 mmol/L Normal 3-13 [facility] Comment on above: Performed By: #### L AB113, [id number], LAB15 ####Doughnut Dough Mixer: MARY SOTELO ([id number])[facility] ([facility])[address] [place] [address] [place] Calcium [Mass/Vol] 7.0 mg/dL Low 8.4-10.4 [facility] Comment on above: Performed By: #### L AB113, [id number], LAB15 ####Doughnut Dough Mixer: MARY SOTELO ([id number])[facility] ([facility])[address] [place] [address] [place] Chloride [Moles/Vol] 104 mmol/L Normal 98-107 [facility] Comment on above: Performed By: #### L AB113, [id number], LAB15 ####Doughnut Dough Mixer: MARY SOTELO ([id number])[facility] ([facility])[address] [place] [address] CO2 [Moles/Vol] 26 mmol/L Normal 22-30 [facility] Comment on above: Performed By: #### L AB113, [id number], LAB15 ####Doughnut Dough Mixer: MARY SOTELO ([id number])[facility])[address] [place] [address] Creatinine [Mass/Vol] 1.88 mg/dL High 0.52-1.04 [facility] Comment on above: Performed By: #### L AB113, [id number], LAB15 ####Doughnut Dough Mixer: MARY SOTELO ([id number])[facility] ([facility])[address] [place] [address] GLOMERULAR FILTRATION RATE ML/MIN/1.73 SQ M.PREDICTED 29.6 mL/min/1.73m*2 Low >60.0 [facility] Comment on above: Result Comment: Calc ulation based on the Chronic Kidney Disease Epidemiology Collaboration (CKD-EPI) equation refit without adjustment for race Performed By: #### L AB113, [id number], LAB15 ####Doughnut Dough Mixer: MARY SOTELO ([id number])[facility] ([facility])[address] [place] [address] Glucose [Mass/Vol] 119 mg/dL High 70-100 [facility] Comment on above: Performed By: #### L AB113, [id number], LAB15 ####Doughnut Dough Mixer: MARY SOTELO ([id number])[facility])[address] [place] [address] Potassium [Moles/Vol] 3.6 mmol/L Normal 3.5-5.1 [facility] Comment on above: Performed By: #### L AB113, [id number], LAB15 ####Doughnut Dough Mixer: MARY SOTELO ([id number])[facility])[address] [place] [address] Sodium [Moles/Vol] 134 mmol/L Low 135-145 [facility] Comment on above: Performed By: #### L AB113, [id number], LAB15 ####Doughnut Dough Mixer: MARY SOTELO ([id number])[facility] ([facility])[address] [place] [address] Urea nitrogen [Mass/Vol] 24 mg/dL High 7-17 [facility] Comment on above: Performed By: #### L AB113, [id number], LAB15 ####Doughnut Dough Mixer: MARY SOTELO ([id number])[facility] [place] [address] Basic metabolic 1998 panelon 08-04-2024 Anion gap [Moles/Vol] 4 mmol/L 3 - 13 mmol/L [facility] Calcium [Mass/Vol] 7.0 mg/dL Low 8.4 - 10. 4 mg/dL [facility] Chloride [Moles/Vol] 104 mmol/L 98 - 10 7 mmol/L [facility] CO2 [Moles/Vol] 26 mmol/L 22 - 30 mmol/L [facility] Creatinine [Mass/Vol] 1.88 mg/dL High 0.52 - 1.04 mg/dL [facility] GFR/1.73 sq M.predicted (S/P/Bld) [Vol rate/Area] 29.6 mL/min Low - PINF [facility] Glucose [Mass/Vol] 119 mg/dL High 70 - 100 mg/dL [facility] Interpretation and review of laboratory results Abnormal [facility] Potassium [Moles/Vol] 3.6 mmol/L 3.5 - 5.1 mmol/L [facility] Sodium [Moles/Vol] 134 mmol/L Low 135 - 145 mmol/L [facility] Urea nitrogen [Mass/Vol] 24 mg/dL High 7 - 17 mg/dL [facility] CALCIUM, IONIZEDon 4 CALCIUM IONIZED 3.70 mg/dL Low 4.30-5.20 [facility] Comment on above: Performed By: #### L [id number] ####Doughnut Dough Mixer: MARY SOTELO ([id number])[facility])[address] [place] [address] PH, IONIZED CALCIUM 7.45 Normal 7.31-7.46 [facility] Comment on above: Performed By: #### L AB54 ####Doughnut Dough Mixer: MARY SOTELO ([id number])[facility] ([facility])[address] [place] [address] CARECOORDon 08-04-2024 [place] Normal [facility] CBC W Auto Differential pane l (Bld)on 08-04-2024 Basophils (Bld) [#/Vol] 0.0 10*3/uL 0.0 - 0.2 10*3/uL [facility] Basophils/100 WBC (Bld) 0.1 % 0.0 - 2.0 % [facility] Eosinophils (Bld) [#/Vol] 0.1 10*3/uL 0.0 - 0.5 10*3/uL [facility] Eosinophils/100 WBC (Bld) 0.7 % 0.0 - 6.0 % [facility] Erythrocyte distribution width (RBC) [Ratio] 17.4 % High 11.5 - 15.0 % [facility] Hematocrit (Bld) [Volume fraction] 26.5 % Low 35.0 - 47.0 % [facility] Hemoglobin (Bld) [Mass/Vol] 8.3 g/dL Low 11.7 - 16.0 g/dL [facility] Immature granulocytes (Bld) [#/Vol] 0.1 10*3/uL High NINF - 0.1 10*3/uL [facility] Immature granulocytes/100 WBC (Bld) 1.1 % 0.0 - 2.0 % [facility] Interpretation and review of laboratory results Abnormal [facility] Lymphocytes (Bld) [#/Vol] 0.7 10*3/uL Low 1.0 - 4.3 10*3/uL [facility] Lymphocytes/100 WBC (Bld) 8.4 % Low 15.0 - 45.0 % [facility] MCH (RBC) [Entitic mass] 28.5 pg 26.0 - 34.0 pg [facility] MCHC (RBC) [Mass/Vol] 31.3 % 30.5 - 36.0 % [facility] MCV (RBC) [Entitic vol] 91.1 fL 77.0 - 99.0 fL [facility] Monocytes (Bld) [#/Vol] 0.3 10*3/uL 0.0 - 0.9 10*3/uL [facility] Monocytes/100 WBC (Bld) 3.6 % Low 5.0 - 13.0 % [facility] Neutrophils (Bld) [#/Vol] 7.4 10*3/uL 1.8 - 7.5 10*3/uL [facility] Neutrophils/100 WBC (Bld) 86.1 % High 38.0 - 82.0 % [facility] Nucleated RBC/100 WBC (Bld) [Ratio] 0.0 % [facility] Platelet mean volume (Bld) [Entitic vol] 9.1 fL 9.0 - 12.7 fL [facility] Platelets (Bld) [#/Vol] 178 10*3/uL 140 - 440 10*3/uL [facility] RBC (Bld) [#/Vol] 2.91 10*6/uL Low 3.80 - 5.2 0 10*6/uL [facility] WBC (Bld) [#/Vol] 8.5 10*3/uL 3.6 - 10.7 10*3/uL [facility] CBC WITH AUTO DIFFERENTIALon 08-04-2024 Basophils (Bld) [#/Vol] 0.0 10*3/uL Normal 0.0-0.2 [facility] Comment on above: Performed By: #### L [id number] ####Doughnut Dough Mixer: MARY SOTELO ([id number])[address] Basophils/100 WBC (Bld) 0.1 % Normal 0.0-2.0 [facility] Comment on above: Performed By: #### L [id number] ####Doughnut Dough Mixer: MARY SOTELO ([id number])[facility])[address] [place] [address] Eosinophils (Bld) [#/Vol] 0.1 10*3/uL Normal 0.0-0.5 [facility] Comment on above: Performed By: #### L [id number] ####Doughnut Dough Mixer: MARY SOTELO ([id number])[facility])[address] [place] [address] Eosinophils/100 WBC (Bld) 0.7 % Normal 0.0-6.0 [facility] Comment on above: Performed By: #### L [id number] ####Doughnut Dough Mixer: MARY SOTELO ([id number])[address] Erythrocyte distribution width (RBC) [Ratio] 17.4 % High 11.5-15.0 [facility] Comment on above: Performed By: #### L [id number] ####Doughnut Dough Mixer: MARY SOTELO ([id number])[address] Hematocrit (Bld) [Volume fraction] 26.5 % Low 35.0-47.0 [facility] Comment on above: Performed By: #### L [id number] ####Doughnut Dough Mixer: MARY SOTELO ([id number])[address] Hemoglobin (Bld) [Mass/Vol] 8.3 g/dL Low 11.7-16.0 [facility] Comment on above: Performed By: #### L [id number] ####Doughnut Dough Mixer: MARY SOTELO ([id number])[address] IMMATURE GRANS % 1.1 % Normal 0.0-2.0 [facility] Comment on above: Performed By: #### L [id number] ####Doughnut Dough Mixer: MARY SOTELO ([id number])[address] IMMATURE GRANS ABSOLUTE 0.1 10*3/uL High <0.1 [facility] Comment on above: Performed By: #### L [id number] ####Doughnut Dough Mixer: MARY SOTELO ([id number])[address] Lymphocytes (Bld) [#/Vol] 0.7 10*3/uL Low 1.0-4.3 [facility] Comment on above: Performed By: #### L [id number] ####Doughnut Dough Mixer: MARY [id number])[facility])[address] [place] [address] Lymphocytes/100 WBC (Bld) 8.4 % Low 15.0-45.0 [facility] Comment on above: Performed By: #### L [id number] ####Doughnut Dough Mixer: MARY SOTELO ([id number])[facility])[address] [place] [address] MCH (RBC) [Entitic mass] 28.5 pg Normal 26.0-34.0 [facility] Comment on above: Performed By: #### L [id number] ####Doughnut Dough Mixer: MARY SOTELO ([id number])[facility])[address] [place] [address] MCHC 31.3 % Normal 30.5-36.0 [facility] Comment on above: Performed By: #### L [id number] ####Doughnut Dough Mixer: MARY SOTELO ([id number])[facility])[address] [place] [address] MCV (RBC) [Entitic vol] 91.1 fL Normal 77.0-99.0 [facility] Comment on above: Performed By: #### L [id number] ####Doughnut Dough Mixer: MARY SOTELO ([id number])[facility])[address] [place] [address] Monocytes (Bld) [#/Vol] 0.3 10*3/uL Normal 0.0-0.9 [facility] Comment on above: Performed By: #### L [id number] ####Doughnut Dough Mixer: MARY SOTELO ([id number])[facility])[address] [place] [address] Monocytes/100 WBC (Bld) 3.6 % Low 5.0-13.0 [facility] Comment on above: Performed By: #### L [id number] ####Doughnut Dough Mixer: MARY SOTELO ([id number])[facility])[address] [place] [address] NEUTROPHILS ABSOLUTE 7.4 10*3/uL Normal 1.8-7.5 [facility] Comment on above: Performed By: #### L [id number] ####Doughnut Dough Mixer: MARY SOTELO ([id number])[facility] ([facility])[address] [place] [address] Neutrophils/100 WBC (Bld) 86.1 % High 38.0-82.0 [facility] Comment on above: Performed By: #### L [id number] ####Doughnut Dough Mixer: MARY SOTELO ([id number])[facility] ([facility])[address] [place] [address] NRBC 0.0 /100 WBCs Normal 0.0-2.0 [facility] Comment on above: Performed By: #### L [id number] ####Doughnut Dough Mixer: MARY SOTELO ([id number])[facility] ([facility])[address] [place] [address] Platelet mean volume (Bld) [Entitic vol] 9.1 fL Normal 9.0-12.7 [facility] Comment on above: Performed By: #### L [id number] ####Doughnut Dough Mixer: MARY SOTELO ([id number])[facility] ([facility])[address] [place] [address] Platelets (Bld) [#/Vol] 178 10*3/uL Normal 140-440 [facility] Comment on above: Performed By: #### L [id number] ####Doughnut Dough Mixer: MARY SOTELO ([id number])[facility] ([facility])[address] [place] [address] RBC (Bld) [#/Vol] 2.91 10*6/uL Low 3.80-5.20 [facility] Comment on above: Performed By: #### L [id number] ####Doughnut Dough Mixer: MARY SOTELO ([id number])[facility] ([facility])[address] [place] [address] WBC (Bld) [#/Vol] 8.5 10*3/uL Normal 3.6-10.7 [facility] Comment on above: Performed By: #### L [id number] ####Doughnut Dough Mixer: MARY SOTELO ([id number])[facility] ([facility])[address] [place] [address] Calcium.ionized [Moles/Vol]o n 08-04-2024 Calcium.ionized (Bld) [Moles/Vol] 3.70 mg/dL Low 4.30 - 5.20 mg/dL [facility] Interpretation and review of laboratory results Abnormal [facility] PH, IONIZED CALCIUM 7.45 7.31 - 7.46 [facility] IDNon 08-04-2024 IDN Normal [facility] Laboratory - Chemistry and C hemistry - challengeon 08-04-2024 Glucose [Mass/Vol] 167 mg/dL High 70 - 100 mg/dL [facility] Glucose [Mass/Vol] 181 mg/dL High 70 - 100 mg/dL [facility] Glucose [Mass/Vol] 191 mg/dL High 70 - 100 mg/dL [facility] Glucose [Mass/Vol] 113 mg/dL High 70 - 100 mg/dL [facility] Magnesium [Mass/Vol] 2.0 mg/dL 1.6 - 2 .3 mg/dL [facility] MAGNESIUMon 08-04-2024 Magnesium [Mass/Vol] 2.0 mg/dL Normal 1.6-2.3 [facility] Comment on above: Performed By: #### L AB113, [id number], LAB15 ####Doughnut Dough Mixer: MARY SOTELO ([id number])[facility] ([facility])[address] [place] [address] No Panel Informationon 08-04 Interpretation and review of laboratory results Abnormal [facility] Interpretation and review of laboratory results Abnormal [facility] Interpretation and review of laboratory results Abnormal [facility] Interpretation and review of laboratory results Abnormal [facility] Interpretation and review of laboratory results Normal [facility] Nursing Noteon 08-04-2024 Nursing Note Normal [facility] PHOSPHORUSon 08-04-2024 Phosphate [Mass/Vol] 3.4 mg/dL Normal 2.5-4.5 [facility] Comment on above: Performed By: #### Dora AB113, [id number], LAB15 ####Doughnut Dough Mixer: MARY SOTELO ([id number])[facility] ([facility])[address] [place] [address] [place] Phosphate [Moles/Vol]on Phosphate [Mass/Vol] 3.4 mg/dL 2.5 - 4 .5 mg/dL [facility] Progress Noteon 08-04-2024 Progress Note Normal [facility] Progress Note Normal [facility] Progress Note Normal [facility] Progress Note Normal [facility] RF videography Hypopharynx a nd Esophagus Views for swallowing function W speech and W barium contrast Harman 08-04-2024 [facility] Radiology Study observation (narrative) [facility] RF videography Hypopharynx a nd Esophagus Views for swallowing function W speech and W barium contrast POOrdered By: Mynor Pulido on 08-04-2024 [facility] Work Phone: BASIC METABOLIC PANELon Anion gap [Moles/Vol] 1 mmol/L Low 3-13 [facility] Comment on above: Performed By: #### Dora SONG, LAB15, [id number] ####Doughnut D[employer] Mixer: MARY SOTELO ([id number])[facility] ([facility])[address] [place] [address] [place] Calcium [Mass/Vol] 7.4 mg/dL Low 8.4-10.4 [facility] Comment on above: Performed By: #### Dora PARISH103, LAB15, [id number] ####Doughnut Dough Mixer: MARY SOTELO ([id number])[facility] ([facility])[address] [place] [address] [place] Chloride [Moles/Vol] 110 mmol/L High 98-107 [facility] Comment on above: Performed By: #### L AB103, LAB15, [id number] ####Doughnut Dough Mixer: MARY SOTELO ([id number])[facility] ([facility])[address] [place] [address] [place] CO2 [Moles/Vol] 26 mmol/L Normal 22-30 [facility] Comment on above: Performed By: #### L AB103, LAB15, [id number] ####Doughnut Dough Mixer: MARY SOTELO ([id number])[facility] [place] [address] Creatinine [Mass/Vol] 2.29 mg/dL High 0.52-1.04 [facility] Comment on above: Performed By: #### L AB103, LAB15, [id number] ####Doughnut D[employer] Mixer: MARY SOTELO ([id number])[facility] ([facility])[address] [place] [address] GLOMERULAR FILTRATION RATE ML/MIN/1.73 SQ M.PREDICTED 23.3 mL/min/1.73m*2 Low >60.0 [facility] Comment on above: Result Comment: Calc ulation based on the Chronic Kidney Disease Epidemiology Collaboration (CKD-EPI) equation refit without adjustment for race Performed By: #### Dora AB103, LAB15, [id number] ####Doughnut D[employer] Mixer: MARY SOTELO ([id number])[facility])[address] [place] [address] Glucose [Mass/Vol] 87 mg/dL Normal 70-100 [facility] Comment on above: Performed By: #### Dora AB103, LAB15, [id number] ####Doughnut Dough Mixer: MARY SOTELO ([id number])[facility])[address] [place] [address] [place] Potassium [Moles/Vol] 4.3 mmol/L Normal 3.5-5.1 [facility] Comment on above: Performed By: #### L AB103, LAB15, [id number] ####Doughnut Dough Mixer: MARY SOTELO ([id number])[facility])[address] [place] [address] [place] Sodium [Moles/Vol] 137 mmol/L Normal 135-145 [facility] Comment on above: Performed By: #### L AB103, LAB15, [id number] ####Doughnut Dough Mixer: MARY SOTELO ([id number])[facility])[address] [place] [address] [place] Urea nitrogen [Mass/Vol] 28 mg/dL High 7-17 [facility] Comment on above: Performed By: #### L AB103, LAB15, [id number] ####Doughnut Dough Mixer: MARY SOTELO ([id number])[facility] ([facility])[address] [place] [address] Basic metabolic 1998 panelon 08-03-2024 Anion gap [Moles/Vol] 1 mmol/L Low 3 - 13 mmol/L [facility] Calcium [Mass/Vol] 7.4 mg/dL Low 8.4 - 10. 4 mg/dL [facility] Chloride [Moles/Vol] 110 mmol/L High 98 - 10 7 mmol/L [facility] CO2 [Moles/Vol] 26 mmol/L 22 - 30 mmol/L [facility] Creatinine [Mass/Vol] 2.29 mg/dL High 0.52 - 1.04 mg/dL [facility] GFR/1.73 sq M.predicted (S/P/Bld) [Vol rate/Area] 23.3 mL/min Low - PINF [facility] Glucose [Mass/Vol] 87 mg/dL 70 - 100 mg/dL [facility] Potassium [Moles/Vol] 4.3 mmol/L 3.5 - 5.1 mmol/L [facility] Sodium [Moles/Vol] 137 mmol/L 135 - 145 mmol/L [facility] Urea nitrogen [Mass/Vol] 28 mg/dL High 7 - 17 mg/dL [facility] CALCIUM, IONIZEDon 4 CALCIUM IONIZED 4.20 mg/dL Low 4.30-5.20 [facility] Comment on above: Performed By: #### L [id number] ####Doughnut Dough Mixer: MARY SOTELO ([id number])[facility] [place] [address] PH, IONIZED CALCIUM 7.29 Low 7.31-7.46 [facility] Comment on above: Performed By: #### L [id number] ####Doughnut Dough Mixer: MARY SOTELO ([id number])[facility] [place] [address] CARECOORDon 08-03-2024 [facility] Normal [facility] CBC W Auto Differential pane l (Bld)Ordered By: Irais Carranza on 08-03-2024 Basophils (Bld) [#/Vol] 0.0 10*3/uL 0.0 - 0.2 10*3/uL [facility] Basophils/100 WBC (Bld) 0.2 % 0.0 - 2.0 % [facility] Eosinophils (Bld) [#/Vol] 0.1 10*3/uL 0.0 - 0.5 10*3/uL [facility] Eosinophils/100 WBC (Bld) 0.5 % 0.0 - 6.0 % [facility] Erythrocyte distribution width (RBC) [Ratio] 18.1 % High 11.5 - 15.0 % [facility] Hematocrit (Bld) [Volume fraction] 28.6 % Low 35.0 - 47.0 % [facility] Hemoglobin (Bld) [Mass/Vol] 8.5 g/dL Low 11.7 - 16.0 g/dL [facility] Immature granulocytes (Bld) [#/Vol] 0.1 10*3/uL High NINF - 0.1 10*3/uL [facility] Immature granulocytes/100 WBC (Bld) 1.1 % 0.0 - 2.0 % [facility] Interpretation and review of laboratory results Abnormal [facility] Lymphocytes (Bld) [#/Vol] 0.7 10*3/uL Low 1.0 - 4.3 10*3/uL [facility] Lymphocytes/100 WBC (Bld) 6.5 % Low 15.0 - 45.0 % [facility] MCH (RBC) [Entitic mass] 27.4 pg 26.0 - 34.0 pg [facility] MCHC (RBC) [Mass/Vol] 29.7 % Low 30.5 - 36.0 % [facility] MCV (RBC) [Entitic vol] 92.3 fL 77.0 - 99.0 fL [facility] Monocytes (Bld) [#/Vol] 0.3 10*3/uL 0.0 - 0.9 10*3/uL [facility] Monocytes/100 WBC (Bld) 3.0 % Low 5.0 - 13.0 % [facility] Neutrophils (Bld) [#/Vol] 9.6 10*3/uL High 1.8 - 7.5 10*3/uL [facility] Neutrophils/100 WBC (Bld) 88.7 % High 38.0 - 82.0 % [facility] Nucleated RBC/100 WBC (Bld) [Ratio] 0.0 % [facility] Platelet mean volume (Bld) [Entitic vol] 9.9 fL 9.0 - 12.7 fL [facility] Platelets (Bld) [#/Vol] 210 10*3/uL 140 - 440 10*3/uL [facility] RBC (Bld) [#/Vol] 3.10 10*6/uL Low 3.80 - 5.2 0 10*6/uL [facility] WBC (Bld) [#/Vol] 10.8 10*3/uL High 3.6 - 10.7 10*3/uL [facility] CBC WITH AUTO DIFFERENTIALon 08-03-2024 Basophils (Bld) [#/Vol] 0.0 10*3/uL Normal 0.0-0.2 [facility] Comment on above: Performed By: #### L [id number] ####D[employer]nut D[employer] Mixer: MARY SOTELO ([id number])[address] Basophils/100 WBC (Bld) 0.2 % Normal 0.0-2.0 [facility] Comment on above: Performed By: #### L [id number] ####Doughnut Dough Mixer: MARY SOTELO ([id number])[facility])[address] [place] [address] Eosinophils (Bld) [#/Vol] 0.1 10*3/uL Normal 0.0-0.5 [facility] Comment on above: Performed By: #### L [id number] ####Doughnut Dough Mixer: MARY SOTELO ([id number])[facility])[address] [place] [address] [place] Eosinophils/100 WBC (Bld) 0.5 % Normal 0.0-6.0 [facility] Comment on above: Performed By: #### L [id number] ####Doughnut Dough Mixer: MARY SOTELO ([id number])[facility] ([facility])[address] [place] [address] Erythrocyte distribution width (RBC) [Ratio] 18.1 % High 11.5-15.0 [facility] Comment on above: Performed By: #### L [id number] ####Doughnut Dough Mixer: MARY SOTELO ([id number])[facility])[address] [place] [address] Hematocrit (Bld) [Volume fraction] 28.6 % Low 35.0-47.0 [facility] Comment on above: Performed By: #### L [id number] ####Doughnut Dough Mixer: MARY SOTELO ([id number])[facility])[address] [place] [address] Hemoglobin (Bld) [Mass/Vol] 8.5 g/dL Low 11.7-16.0 [facility] Comment on above: Performed By: #### L [id number] ####Doughnut Dough Mixer: MARY SOTELO ([id number])[facility] ([facility])[address] [place] [address] IMMATURE GRANS % 1.1 % Normal 0.0-2.0 [facility] Comment on above: Performed By: #### L [id number] ####Doughnut Dough Mixer: MARY SOTELO ([id number])[facility])[address] [place] [address] IMMATURE GRANS ABSOLUTE 0.1 10*3/uL High <0.1 [facility] Comment on above: Performed By: #### L [id number] ####Doughnut Dough Mixer: MARY SOTELO ([id number])[facility])[address] [place] [address] Lymphocytes (Bld) [#/Vol] 0.7 10*3/uL Low 1.0-4.3 [facility] Comment on above: Performed By: #### L [id number] ####Doughnut Dough Mixer: MARY SOTELO ([id number])[facility])[address] [place] [address] Lymphocytes/100 WBC (Bld) 6.5 % Low 15.0-45.0 [facility] Comment on above: Performed By: #### L [id number] ####Doughnut Dough Mixer: MARY SOTELO ([id number])[facility])[address] [place] [address] MCH (RBC) [Entitic mass] 27.4 pg Normal 26.0-34.0 [facility] Comment on above: Performed By: #### L [id number] ####Doughnut Dough Mixer: MARY SOTELO ([id number])[facility])[address] [place] [address] MCHC 29.7 % Low 30.5-36.0 [facility] Comment on above: Performed By: #### L [id number] ####Doughnut Dough Mixer: MARY SOTELO ([id number])[facility])[address] [place] [address] MCV (RBC) [Entitic vol] 92.3 fL Normal 77.0-99.0 [facility] Comment on above: Performed By: #### L [id number] ####Doughnut Dough Mixer: MARY SOTELO ([id number])[facility])[address] [place] [address] Monocytes (Bld) [#/Vol] 0.3 10*3/uL Normal 0.0-0.9 [facility] Comment on above: Performed By: #### L [id number] ####Doughnut Dough Mixer: MARY SOTELO ([id number])[facility])[address] [place] [address] Monocytes/100 WBC (Bld) 3.0 % Low 5.0-13.0 [facility] Comment on above: Performed By: #### L [id number] ####Doughnut Dough Mixer: MARY SOTELO ([id number])[facility])[address] [place] [address] NEUTROPHILS ABSOLUTE 9.6 10*3/uL High 1.8-7.5 [facility] Comment on above: Performed By: #### L [id number] ####Doughnut Dough Mixer: MARY SOTELO ([id number])[facility] ([facility])[address] [place] [address] Neutrophils/100 WBC (Bld) 88.7 % High 38.0-82.0 [facility] Comment on above: Performed By: #### L [id number] ####Doughnut Dough Mixer: MARY SOTELO ([id number])[facility] ([facility])[address] [place] [address] NRBC 0.0 /100 WBCs Normal 0.0-2.0 [facility] Comment on above: Performed By: #### L [id number] ####Doughnut Dough Mixer: MARY SOTELO ([id number])[facility] ([facility])[address] [place] [address] Platelet mean volume (Bld) [Entitic vol] 9.9 fL Normal 9.0-12.7 [facility] Comment on above: Performed By: #### L [id number] ####Doughnut Dough Mixer: MARY SOTELO ([id number])[facility] ([facility])[address] [place] [address] Platelets (Bld) [#/Vol] 210 10*3/uL Normal 140-440 [facility] Comment on above: Performed By: #### L [id number] ####Doughnut Dough Mixer: MARY SOTELO ([id number])[facility] ([facility])[address] [place] [address] RBC (Bld) [#/Vol] 3.10 10*6/uL Low 3.80-5.20 [facility] Comment on above: Performed By: #### L [id number] ####Doughnut Dough Mixer: MARY SOTELO ([id number])[facility] ([facility])[address] [place] [address] WBC (Bld) [#/Vol] 10.8 10*3/uL High 3.6-10.7 [facility] Comment on above: Performed By: #### L [id number] ####Doughnut Dough Mixer: MARY SOTELO ([id number])[facility] ([facility])[address] [place] [address] Calcium.ionized [Moles/Vol]o n 08-03-2024 Calcium.ionized (Bld) [Moles/Vol] 4.20 mg/dL Low 4.30 - 5.20 mg/dL [facility] Interpretation and review of laboratory results Abnormal [facility] PH, IONIZED CALCIUM 7.29 Low 7.31 - 7.46 [facility] - Chemistry and C hemistry - challengeon 08-03-2024 Glucose [Mass/Vol] 118 mg/dL High 70 - 100 mg/dL [facility] Glucose [Mass/Vol] 93 mg/dL 70 - 100 mg/dL [facility] Glucose [Mass/Vol] 173 mg/dL High 70 - 100 mg/dL [facility] Glucose [Mass/Vol] 81 mg/dL 70 - 100 mg/dL [facility] Magnesium [Mass/Vol] 2.4 mg/dL High 1.6 - 2 .3 mg/dL [facility] Glucose [Mass/Vol] 88 mg/dL 70 - 100 mg/dL [facility] MAGNESIUMon 08-03-2024 Magnesium [Mass/Vol] 2.4 mg/dL High 1.6-2.3 [facility] Comment on above: Performed By: #### L AB103, LAB15, [id number] ####Doughnut Dough Mixer: MARY SOTELO ([id number])[facility] ([facility])[address] [place] [address] No Panel Informationon 08-03 Interpretation and review of laboratory results Abnormal [facility] Interpretation and review of laboratory results Normal [facility] Interpretation and review of laboratory results Abnormal [facility] Interpretation and review of laboratory results Normal [facility] Interpretation and review of laboratory results Abnormal [facility] Interpretation and review of laboratory results Normal [facility] Nursing Noteon 08-03-2024 Nursing Note Normal [facility] PHOSPHORUSon 08-03-2024 Phosphate [Mass/Vol] 3.4 mg/dL Normal 2.5-4.5 [facility] Comment on above: Performed By: #### Dora AB103, LAB15, [id number] ####Doughnut Dough Mixer: MARY SOTELO ([id number])[facility] ([facility])[address] [place] [address] [place] Phosphate [Moles/Vol]on Interpretation and review of laboratory results Normal [facility] Phosphate [Mass/Vol] 3.4 mg/dL 2.5 - 4 .5 mg/dL [facility] Progress Noteon 08-03-2024 Progress Note Normal [facility] Progress Note Normal [facility] Progress Note Normal [facility] Progress Note Normal [facility] Progress Note Normal [facility] BASIC METABOLIC PANELon 07-06 Anion gap [Moles/Vol] 3 mmol/L Normal 3-13 [facility] Comment on above: Performed By: #### Dora ABGabbie, LAB15, [id number] ####Doughnut Dough Mixer: MARY SOTELO ([id number])[facility] [place] [address] [place] Calcium [Mass/Vol] 7.4 mg/dL Low 8.4-10.4 [facility] Comment on above: Performed By: #### Dora ABGabbie, LAB15, [id number] ####Doughnut Dough Mixer: MARY SOTELO ([id number])[facility] [place] [address] [place] Chloride [Moles/Vol] 107 mmol/L Normal 98-107 [facility] Comment on above: Performed By: #### Dora AB113, LAB15, [id number] ####Doughnut Dough Mixer: MARY SOTELO ([id number])[facility] [place] [address] [place] CO2 [Moles/Vol] 23 mmol/L Normal 22-30 [facility] Comment on above: Performed By: #### L AB113, LAB15, [id number] ####Doughnut Dough Mixer: MARY SOTELO ([id number])[facility] [place] [address] [place] Creatinine [Mass/Vol] 1.55 mg/dL High 0.52-1.04 [facility] Comment on above: Performed By: #### L AB113, LAB15, [id number] ####Doughnut Dough Mixer: MARY SOTELO ([id number])[facility])[address] [place] [address] GLOMERULAR FILTRATION RATE ML/MIN/1.73 SQ M.PREDICTED 37.3 mL/min/1.73m*2 Low >60.0 [facility] Comment on above: Result Comment: Calc ulation based on the Chronic Kidney Disease Epidemiology Collaboration (CKD-EPI) equation refit without adjustment for race Performed By: #### Dora AB113, LAB15, [id number] ####Doughnut Dough Mixer: MARY SOTELO ([id number])[facility] ([facility])[address] [place] [address] Glucose [Mass/Vol] 212 mg/dL High 70-100 [facility] Comment on above: Performed By: #### Dora AB113, LAB15, [id number] ####Doughnut Dough Mixer: MARY SOTELO ([id number])[facility] ([facility])[address] [place] [address] Potassium [Moles/Vol] 4.1 mmol/L Normal 3.5-5.1 [facility] Comment on above: Performed By: #### L AB113, LAB15, [id number] ####Doughnut Dough Mixer: MARY SOTELO ([id number])[facility] ([facility])[address] [place] [address] [place] Sodium [Moles/Vol] 134 mmol/L Low 135-145 [facility] Comment on above: Performed By: #### L AB113, LAB15, [id number] ####Doughnut Dough Mixer: MARY SOTELO ([id number])[facility])[address] [place] [address] [place] Urea nitrogen [Mass/Vol] 21 mg/dL High 7-17 [facility] Comment on above: Performed By: #### L AB113, LAB15, [id number] ####Doughnut Dough Mixer: MARY [id number])[facility] [place] [address] Basic metabolic 1998 panelon 08-02-2024 Anion gap [Moles/Vol] 3 mmol/L 3 - 13 mmol/L [facility] Calcium [Mass/Vol] 7.4 mg/dL Low 8.4 - 10. 4 mg/dL [facility] Chloride [Moles/Vol] 107 mmol/L 98 - 10 7 mmol/L [facility] CO2 [Moles/Vol] 23 mmol/L 22 - 30 mmol/L [facility] Creatinine [Mass/Vol] 1.55 mg/dL High 0.52 - 1.04 mg/dL [facility] GFR/1.73 sq M.predicted (S/P/Bld) [Vol rate/Area] 37.3 mL/min Low - PINF [facility] Glucose [Mass/Vol] 212 mg/dL High 70 - 100 mg/dL [facility] Interpretation and review of laboratory results Abnormal [facility] Potassium [Moles/Vol] 4.1 mmol/L 3.5 - 5.1 mmol/L [facility] Sodium [Moles/Vol] 134 mmol/L Low 135 - 145 mmol/L [facility] Urea nitrogen [Mass/Vol] 21 mg/dL High 7 - 17 mg/dL [facility] CALCIUM, IONIZEDon CALCIUM IONIZED 4.30 mg/dL Normal 4.30-5.20 [facility] Comment on above: Performed By: #### L [id number] ####Doughnut Dough Mixer: MARY SOTELO ([id number])[facility] ([facility])[address] [place] [address] PH, IONIZED CALCIUM 7.36 Normal 7.31-7.46 [facility] Comment on above: Performed By: #### L AB54 ####Doughnut Dough Mixer: MARY SOTELO ([id number])[facility] ([facility])[address] [place] [address] CARECOORDon 08-02-2024 [place]ORD Normal [facility] CAR[place] Normal [facility] CBC W Auto Differential pane l (Bld)on 08-02-2024 Basophils (Bld) [#/Vol] 0.0 10*3/uL 0.0 - 0.2 10*3/uL [facility] Basophils/100 WBC (Bld) 0.1 % 0.0 - 2.0 % [facility] Eosinophils (Bld) [#/Vol] 0.0 10*3/uL 0.0 - 0.5 10*3/uL [facility] Eosinophils/100 WBC (Bld) 0.4 % 0.0 - 6.0 % [facility] Erythrocyte distribution width (RBC) [Ratio] 17.8 % High 11.5 - 15.0 % [facility] Hematocrit (Bld) [Volume fraction] 24.7 % Low 35.0 - 47.0 % [facility] Hemoglobin (Bld) [Mass/Vol] 7.8 g/dL Low 11.7 - 16.0 g/dL [facility] Immature granulocytes (Bld) [#/Vol] 0.1 10*3/uL High NINF - 0.1 10*3/uL [facility] Immature granulocytes/100 WBC (Bld) 0.6 % 0.0 - 2.0 % [facility] Interpretation and review of laboratory results Abnormal [facility] Lymphocytes (Bld) [#/Vol] 0.4 10*3/uL Low 1.0 - 4.3 10*3/uL [facility] Lymphocytes/100 WBC (Bld) 4.5 % Low 15.0 - 45.0 % [facility] MCH (RBC) [Entitic mass] 28.4 pg 26.0 - 34.0 pg [facility] MCHC (RBC) [Mass/Vol] 31.6 % 30.5 - 36.0 % [facility] MCV (RBC) [Entitic vol] 89.8 fL 77.0 - 99.0 fL [facility] Monocytes (Bld) [#/Vol] 0.2 10*3/uL 0.0 - 0.9 10*3/uL [facility] Monocytes/100 WBC (Bld) 2.1 % Low 5.0 - 13.0 % [facility] Neutrophils (Bld) [#/Vol] 9.0 10*3/uL High 1.8 - 7.5 10*3/uL [facility] Neutrophils/100 WBC (Bld) 92.3 % High 38.0 - 82.0 % [facility] Nucleated RBC/100 WBC (Bld) [Ratio] 0.0 % [facility] Platelet mean volume (Bld) [Entitic vol] 10.4 fL 9.0 - 12.7 fL [facility] Platelets (Bld) [#/Vol] 177 10*3/uL 140 - 440 10*3/uL [facility] RBC (Bld) [#/Vol] 2.75 10*6/uL Low 3.80 - 5.2 0 10*6/uL [facility] WBC (Bld) [#/Vol] 9.8 10*3/uL 3.6 - 10.7 10*3/uL [facility] CBC WITH AUTO DIFFERENTIALon 08-02-2024 Basophils (Bld) [#/Vol] 0.0 10*3/uL Normal 0.0-0.2 [facility] Comment on above: Performed By: #### L [id number] ####Doughnut Dough Mixer: MARY SOTELO ([id number])[address] Basophils/100 WBC (Bld) 0.1 % Normal 0.0-2.0 [facility] Comment on above: Performed By: #### L [id number] ####Doughnut Dough Mixer: MARY SOTELO ([id number])[address] Eosinophils (Bld) [#/Vol] 0.0 10*3/uL Normal 0.0-0.5 [facility] Comment on above: Performed By: #### L [id number] ####Doughnut Dough Mixer: MARY SOTELO ([id number])[facility])[address] [place] [address] Eosinophils/100 WBC (Bld) 0.4 % Normal 0.0-6.0 [facility] Comment on above: Performed By: #### L [id number] ####Doughnut Dough Mixer: MARY SOTELO ([id number])[facility])[address] [place] [address] Erythrocyte distribution width (RBC) [Ratio] 17.8 % High 11.5-15.0 [facility] Comment on above: Performed By: #### L [id number] ####Doughnut Dough Mixer: MARY SOTELO ([id number])[facility])[address] [place] [address] Hematocrit (Bld) [Volume fraction] 24.7 % Low 35.0-47.0 [facility] Comment on above: Performed By: #### L [id number] ####Doughnut D[employer] Mixer: MARY SOTELO ([id number])[facility])[address] [place] [address] Hemoglobin (Bld) [Mass/Vol] 7.8 g/dL Low 11.7-16.0 [facility] Comment on above: Performed By: #### L [id number] ####Doughnut Dough Mixer: MARY SOTELO ([id number])[facility])[address] [place] [address] IMMATURE GRANS % 0.6 % Normal 0.0-2.0 [facility] Comment on above: Performed By: #### L [id number] ####Doughnut Dough Mixer: MAYR SOTELO ([id number])[facility])[address] [place] [address] IMMATURE GRANS ABSOLUTE 0.1 10*3/uL High <0.1 [facility] Comment on above: Performed By: #### L [id number] ####D[employer]nut Dough Mixer: MARY SOTELO ([id number])[facility])[address] [place] [address] Lymphocytes (Bld) [#/Vol] 0.4 10*3/uL Low 1.0-4.3 [facility] Comment on above: Performed By: #### L [id number] ####Doughnut D[employer] Mixer: MARY SOTELO ([id number])[facility])[address] [place] [address] Lymphocytes/100 WBC (Bld) 4.5 % Low 15.0-45.0 [facility] Comment on above: Performed By: #### L [id number] ####D[employer]nut D[employer] Mixer: MARY SOTELO ([id number])[facility])[address] [place] [address] MCH (RBC) [Entitic mass] 28.4 pg Normal 26.0-34.0 [facility] Comment on above: Performed By: #### L [id number] ####Doughnut D[employer] Mixer: MARY SOTELO ([id number])[facility])[address] [place] [address] MCHC 31.6 % Normal 30.5-36.0 [facility] Comment on above: Performed By: #### L [id number] ####Doughnut Dough Mixer: MARY SOTELO ([id number])[facility])[address] [place] [address] MCV (RBC) [Entitic vol] 89.8 fL Normal 77.0-99.0 [facility] Comment on above: Performed By: #### L [id number] ####Doughnut D[employer] Mixer: MARY SOTELO ([id number])[facility] ([facility])[address] [place] [address] Monocytes (Bld) [#/Vol] 0.2 10*3/uL Normal 0.0-0.9 [facility] Comment on above: Performed By: #### L [id number] ####Doughnut D[employer] Mixer: MARY SOTELO ([id number])[facility])[address] [place] [address] Monocytes/100 WBC (Bld) 2.1 % Low 5.0-13.0 [facility] Comment on above: Performed By: #### L [id number] ####Doughnut Dough Mixer: MARY SOTELO ([id number])[facility] ([facility])[address] [place] [address] NEUTROPHILS ABSOLUTE 9.0 10*3/uL High 1.8-7.5 [facility] Comment on above: Performed By: #### L [id number] ####Doughnut Dough Mixer: MARY SOTELO ([id number])[facility])[address] [place] [address] Neutrophils/100 WBC (Bld) 92.3 % High 38.0-82.0 [facility] Comment on above: Performed By: #### L [id number] ####Doughnut Dough Mixer: MARY SOTELO ([id number])[facility])[address] [place] [address] NRBC 0.0 /100 WBCs Normal 0.0-2.0 [facility] Comment on above: Performed By: #### L [id number] ####Doughnut Dough Mixer: MARY SOTELO ([id number])[facility] ([facility])[address] [place] [address] Platelet mean volume (Bld) [Entitic vol] 10.4 fL Normal 9.0-12.7 [facility] Comment on above: Performed By: #### L [id number] ####Doughnut Dough Mixer: MARY SOTELO ([id number])[facility] ([facility])[address] [place] [address] Platelets (Bld) [#/Vol] 177 10*3/uL Normal 140-440 [facility] Comment on above: Performed By: #### L [id number] ####Doughnut Dough Mixer: MARY SOTELO ([id number])[facility])[address] [place] [address] RBC (Bld) [#/Vol] 2.75 10*6/uL Low 3.80-5.20 [facility] Comment on above: Performed By: #### L [id number] ####Doughnut Dough Mixer: MARY SOTELO ([id number])[facility])[address] [place] [address] WBC (Bld) [#/Vol] 9.8 10*3/uL Normal 3.6-10.7 [facility] Comment on above: Performed By: #### L [id number] ####Doughnut Dough Mixer: MARY SOTELO ([id number])[facility])[address] [place] [address] Calcium.ionized [Moles/Vol]o n 08-02-2024 Calcium.ionized (Bld) [Moles/Vol] 4.30 mg/dL 4.30 - 5.20 mg/dL [facility] Interpretation and review of laboratory results Normal [facility] PH, IONIZED CALCIUM 7.36 7.31 - 7.46 [facility] ECG 12-LEADon 08-02-2024 ECG 12-LEAD IMPRESSION: Unclear atrial rhythm - consider accelerated junctional Right bundle branch block Electronically Signed On 08-02-2024 08:53:44 EDT by Khai Duong Normal [facility] Laboratory - Chemistry and C hemistry - challengeon 08-02-2024 Glucose [Mass/Vol] 211 mg/dL High 70 - 100 mg/dL [facility] Glucose [Mass/Vol] 202 mg/dL High 70 - 100 mg/dL [facility] Glucose [Mass/Vol] 180 mg/dL High 70 - 100 mg/dL [facility] Magnesium [Mass/Vol] 2.3 mg/dL 1.6 - 2 .3 mg/dL [facility] Glucose [Mass/Vol] 217 mg/dL High 70 - 100 mg/dL [facility] MAGNESIUMon 08-02-2024 Magnesium [Mass/Vol] 2.3 mg/dL Normal 1.6-2.3 [facility] Comment on above: Performed By: #### L AB113, LAB15, [id number] ####[employer]: MARY SOTELO ([id number])[address] No Panel Informationon 08-02 Interpretation and review of laboratory results Abnormal [facility] Interpretation and review of laboratory results Abnormal [facility] CV EPIPHANY [facility] Interpretation and review of laboratory results Abnormal [facility] Interpretation and review of laboratory results Normal [facility] Interpretation and review of laboratory results Abnormal [facility] No Panel InformationOrdered By: Khai Duong on 08-02-2024 P [place] 0 degrees [facility] [employer] Work Phone: RI Interval 0 ms [facility] Work Phone: QRS [place] -118 degrees [facility] [employer] Work Phone: QRSD Interval 145 ms [facility] Work Phone: QT Interval 477 ms [facility] Work Phone: QTC Interval 528 ms [facility] Work Phone: T Wave [place] 36 degrees [facility] Work Phone: [facility] Work Phone: PHOSPHORUSon 08-02-2024 Phosphate [Mass/Vol] 3.0 mg/dL Normal 2.5-4.5 [facility] Comment on above: Performed By: #### L AB113, LAB15, [id number] ####[employer]: MARY SOTELO ([id number])[facility])[address] [place] [address] [place] Phosphate [Moles/Vol]on 07-06 Phosphate [Mass/Vol] 3.0 mg/dL 2.5 - 4 .5 mg/dL [facility] Progress Noteon 08-02-2024 Progress Note [...] on 08-02-2024 Heart rate 73 /min bpm [facility] [employer] Work Phone: CALCIUM, IONIZEDon CALCIUM IONIZED 4.10 mg/dL Low 4.30-5.20 [facility] Comment on above: Performed By: #### L AB54 ####[employer]: MARY SOTELO ([id number])[facility] [place] [address] PH, IONIZED CALCIUM 7.38 Normal 7.31-7.46 [facility] Comment on above: Performed By: #### L AB54 ####[employer]: MARY SOTELO ([id number])[facility] [place] [address] CALCIUM IONIZED 4.30 mg/dL Normal 4.30-5.20 [facility] Comment on above: Performed By: #### L AB54 ####[employer]: MARY SOTELO ([id number])[facility] ([facility])[address] [place] [address] PH, IONIZED CALCIUM 7.32 Normal 7.31-7.46 [facility] Comment on above: Performed By: #### L AB54 ####[employer]: MARY SOTELO ([id number])[facility] ([facility])[address] [place] [address] CALCIUM IONIZED 4.50 mg/dL Normal 4.30-5.20 [facility] Comment on above: Performed By: #### L AB54 ####[employer]: MARY SOTELO ([id number])[facility])[address] [place] [address] PH, IONIZED CALCIUM 7.31 Normal 7.31-7.46 [facility] Comment on above: Performed By: #### L AB54 ####[employer]: MARY SOTELO ([id number])[facility] ([facility])[address] [place] [address] CBC W Auto Differential pane l (Bld)on 08-01-2024 Basophils (Bld) [#/Vol] 0.0 10*3/uL 0.0 - 0.2 10*3/uL [facility] Basophils/100 WBC (Bld) 0.1 % 0.0 - 2.0 % [facility] Eosinophils (Bld) [#/Vol] 0.1 10*3/uL 0.0 - 0.5 10*3/uL [facility] Eosinophils/100 WBC (Bld) 0.7 % 0.0 - 6.0 % [facility] Erythrocyte distribution width (RBC) [Ratio] 17.1 % High 11.5 - 15.0 % [facility] Hematocrit (Bld) [Volume fraction] 25.9 % Low 35.0 - 47.0 % [facility] Hemoglobin (Bld) [Mass/Vol] 8.3 g/dL Low 11.7 - 16.0 g/dL [facility] Immature granulocytes (Bld) [#/Vol] 0.0 10*3/uL NINF - 0.1 10*3/uL [facility] [employer] Immature granulocytes/100 WBC (Bld) 0.3 % 0.0 - 2.0 % [facility] Interpretation and review of laboratory results Abnormal [facility] [employer] Lymphocytes (Bld) [#/Vol] 1.0 10*3/uL 1.0 - 4.3 10*3/uL [facility] Lymphocytes/100 WBC (Bld) 9.9 % Low 15.0 - 45.0 % [facility] MCH (RBC) [Entitic mass] 28.2 pg 26.0 - 34.0 pg [facility] MCHC (RBC) [Mass/Vol] 32.0 % 30.5 - 36.0 % [facility] MCV (RBC) [Entitic vol] 88.1 fL 77.0 - 99.0 fL [facility] Monocytes (Bld) [#/Vol] 0.5 10*3/uL 0.0 - 0.9 10*3/uL [facility] Monocytes/100 WBC (Bld) 4.9 % Low 5.0 - 13.0 % [facility] Neutrophils (Bld) [#/Vol] 8.7 10*3/uL High 1.8 - 7.5 10*3/uL [facility] Neutrophils/100 WBC (Bld) 84.1 % High 38.0 - 82.0 % [facility] [employer] Nucleated RBC/100 WBC (Bld) [Ratio] 0.0 % [facility] [employer] Platelet mean volume (Bld) [Entitic vol] 11.0 fL 9.0 - 12.7 fL [facility] Platelets (Bld) [#/Vol] 156 10*3/uL 140 - 440 10*3/uL [facility] RBC (Bld) [#/Vol] 2.94 10*6/uL Low 3.80 - 5.2 0 10*6/uL [facility] WBC (Bld) [#/Vol] 10.4 10*3/uL 3.6 - 10.7 10*3/uL [facility] CBC WITH AUTO DIFFERENTIALon 08-01-2024 Basophils (Bld) [#/Vol] 0.0 10*3/uL Normal 0.0-0.2 [facility] Comment on above: Performed By: #### L [id number] ####[employer]: MARY SOTELO ([id number])[facility] ([facility])[address] [place] [address] Basophils/100 WBC (Bld) 0.1 % Normal 0.0-2.0 [facility] Comment on above: Performed By: #### L [id number] ####[employer]: MARY SOTELO ([id number])[facility])[address] [place] [address] Eosinophils (Bld) [#/Vol] 0.1 10*3/uL Normal 0.0-0.5 [facility] Comment on above: Performed By: #### L [id number] ####[employer]: MARY SOTELO ([id number])[facility])[address] [place] [address] Eosinophils/100 WBC (Bld) 0.7 % Normal 0.0-6.0 [facility] Comment on above: Performed By: #### L [id number] ####[employer]: MARY SOTELO ([id number])[facility] ([facility])[address] [place] [address] Erythrocyte distribution width (RBC) [Ratio] 17.1 % High 11.5-15.0 [facility] Comment on above: Performed By: #### L [id number] ####[employer]: MARY SOTELO ([id number])[address] Hematocrit (Bld) [Volume fraction] 25.9 % Low 35.0-47.0 [facility] Comment on above: Performed By: #### L [id number] ####[employer]: MARY SOTELO ([id number])[facility])[address] [place] [address] Hemoglobin (Bld) [Mass/Vol] 8.3 g/dL Low 11.7-16.0 [facility] Comment on above: Performed By: #### L [id number] ####[employer]: MARY SOTELO ([id number])[facility])[address] [place] [address] IMMATURE GRANS % 0.3 % Normal 0.0-2.0 [facility] Comment on above: Performed By: #### L [id number] ####[employer]: MARY SOTELO ([id number])[facility])[address] [place] [address] IMMATURE GRANS ABSOLUTE 0.0 10*3/uL Normal <0.1 [facility] Comment on above: Performed By: #### L [id number] ####[employer]: MARY SOTELO ([id number])[facility])[address] [place] [address] Lymphocytes (Bld) [#/Vol] 1.0 10*3/uL Normal 1.0-4.3 [facility] Comment on above: Performed By: #### L [id number] ####[employer]: MARY SOTELO ([id number])[facility])[address] [place] [address] Lymphocytes/100 WBC (Bld) 9.9 % Low 15.0-45.0 [facility] Comment on above: Performed By: #### L [id number] ####[employer]: MARY SOTELO ([id number])[facility])[address] [place] [address] MCH (RBC) [Entitic mass] 28.2 pg Normal 26.0-34.0 [facility] Comment on above: Performed By: #### L [id number] ####[employer]: MARY SOTELO ([id number])[facility])[address] [place] [address] MCHC 32.0 % Normal 30.5-36.0 [facility] Comment on above: Performed By: #### L [id number] ####[employer]: MARY SOTELO ([id number])[facility])[address] [place] [address] MCV (RBC) [Entitic vol] 88.1 fL Normal 77.0-99.0 [facility] Comment on above: Performed By: #### L [id number] ####[employer]: MARY SOTELO ([id number])[facility] ([facility])[address] [place] [address] Monocytes (Bld) [#/Vol] 0.5 10*3/uL Normal 0.0-0.9 [facility] Comment on above: Performed By: #### L [id number] ####[employer]: MARY SOTELO ([id number])[facility] ([facility])[address] [place] [address] Monocytes/100 WBC (Bld) 4.9 % Low 5.0-13.0 [facility] Comment on above: Performed By: #### L [id number] ####[employer]: MARY SOTELO ([id number])[facility] ([facility])[address] [place] [address] NEUTROPHILS ABSOLUTE 8.7 10*3/uL High 1.8-7.5 [facility] Comment on above: Performed By: #### L [id number] ####[employer]er: MARY SOTELO ([id number])[facility] ([facility])[address] [place] [address] Neutrophils/100 WBC (Bld) 84.1 % High 38.0-82.0 [facility] Comment on above: Performed By: #### L [id number] ####[employer]er: MARY SOTELO ([id number])[facility] ([facility])[address] [place] [address] NRBC 0.0 /100 WBCs Normal 0.0-2.0 [facility] Comment on above: Performed By: #### L [id number] ####[employer]er: MARY SOTELO ([id number])[facility])[address] [place] [address] Platelet mean volume (Bld) [Entitic vol] 11.0 fL Normal 9.0-12.7 [facility] Comment on above: Performed By: #### L [id number] ####[employer]: MARY SOTELO ([id number])[facility] [place] [address] Platelets (Bld) [#/Vol] 156 10*3/uL Normal 140-440 [facility] Comment on above: Performed By: #### L [id number] ####[employer]: MARY SOTELO ([id number])[facility])[address] [place] [address] RBC (Bld) [#/Vol] 2.94 10*6/uL Low 3.80-5.20 [facility] Comment on above: Performed By: #### L [id number] ####[employer]: MARY SOTELO ([id number])[facility])[address] [place] [address] WBC (Bld) [#/Vol] 10.4 10*3/uL Normal 3.6-10.7 [facility] Comment on above: Performed By: #### L [id number] ####[employer]: MARY SOTELO ([id number])[facility] ([facility])[address] [place] [address] Calcium.ionized [Moles/Vol]o n 08-01-2024 Calcium.ionized (Bld) [Moles/Vol] 4.10 mg/dL Low 4.30 - 5.20 mg/dL [facility] Interpretation and review of laboratory results Abnormal [facility] PH, IONIZED CALCIUM 7.38 7.31 - 7.46 [facility] Calcium.ionized (Bld) [Moles/Vol] 4.30 mg/dL 4.30 - 5.20 mg/dL [facility] Interpretation and review of laboratory results Normal [facility] PH, IONIZED CALCIUM 7.32 7.31 - 7.46 [facility] Calcium.ionized (Bld) [Moles/Vol] 4.50 mg/dL 4.30 - 5.20 mg/dL [facility] Interpretation and review of laboratory results Normal [facility] PH, IONIZED CALCIUM 7.31 7.31 - 7.46 [facility] IDNon 08-01-2024 IDN Normal [facility] - Chemistry and C hemistry - challengeon 08-01-2024 Glucose [Mass/Vol] 192 mg/dL High 70 - 100 mg/dL [facility] Glucose [Mass/Vol] 170 mg/dL High 70 - 100 mg/dL [facility] Glucose [Mass/Vol] 166 mg/dL High 70 - 100 mg/dL [facility] Glucose [Mass/Vol] 120 mg/dL High 70 - 100 mg/dL [facility] Glucose [Mass/Vol] 161 mg/dL High 70 - 100 mg/dL [facility] No Panel Informationon 08-01 Interpretation and review of laboratory results Abnormal [facility] Interpretation and review of laboratory results Abnormal [facility] Interpretation and review of laboratory results Abnormal [facility] Interpretation and review of laboratory results Abnormal [facility] Interpretation and review of laboratory results Abnormal [facility] Progress Noteon 08-01-2024 Progress Note Normal [facility] Progress Note Normal [facility] Progress Note Normal [facility] RENAL FUNCTION PANELon 08-01 Albumin [Mass/Vol] 2.1 g/dL Low 3.5-5.0 [facility] Comment on above: Performed By: #### L [id number] ####[employer]: MARY SOTELO ([id number])[facility])[address] [place] [address] Anion gap [Moles/Vol] 3 mmol/L Normal 3-13 [facility] Comment on above: Performed By: #### L AB19 ####[employer]er: MARY SOTELO ([id number])[facility] ([facility])[address] [place] [address] Calcium [Mass/Vol] 7.2 mg/dL Low 8.4-10.4 [facility] Comment on above: Performed By: #### L [id number] ####[employer]: MARY SOTELO ([id number])[facility] ([facility])[address] [place] [address] Chloride [Moles/Vol] 106 mmol/L Normal 98-107 [facility] Comment on above: Performed By: #### L [id number] ####[employer]er: MARY SOTELO ([id number])[facility] ([facility])[address] [place] [address] CO2 [Moles/Vol] 23 mmol/L Normal 22-30 [facility] Comment on above: Performed By: #### L [id number] ####[employer]er: MARY SOTELO ([id number])[facility])[address] [place] [address] Creatinine [Mass/Vol] 0.87 mg/dL Normal 0.52-1.04 [facility] Comment on above: Performed By: #### L AB19 ####[employer]er: MARY SOTELO ([id number])[facility])[address] [place] [address] GLOMERULAR FILTRATION RATE ML/MIN/1.73 SQ M.PREDICTED 74.5 mL/min/1.73m*2 Normal >60.0 [facility] Comment on above: Result Comment: Calc ulation based on the Chronic Kidney Disease Epidemiology Collaboration (CKD-EPI) equation refit without adjustment for race Performed By: #### L AB19 ####[employer]: MARY SOTELO ([id number])[facility])[address] [place] [address] Glucose [Mass/Vol] 170 mg/dL High 70-100 [facility] Comment on above: Performed By: #### L AB19 ####[employer]: MARY SOTELO ([id number])[facility])[address] [place] [address] Phosphate [Mass/Vol] 2.3 mg/dL Low 2.5-4.5 [facility] Comment on above: Performed By: #### L AB19 ####[employer]er: MARY SOTELO ([id number])[facility])[address] [place] [address] Potassium [Moles/Vol] 4.1 mmol/L Normal 3.5-5.1 [facility] Comment on above: Performed By: #### L AB19 ####[employer]: MARY SOTELO ([id number])[facility] [place] [address] Sodium [Moles/Vol] 132 mmol/L Low 135-145 [facility] Comment on above: Performed By: #### L AB19 ####[employer]: MARY SOTELO ([id number])[facility] [place] [address] [place] Urea nitrogen [Mass/Vol] 13 mg/dL Normal 7-17 [facility] Comment on above: Performed By: #### L AB19 ####[employer]: MARY SOTELO ([id number])[facility] ([facility])[address] [place] [address] Albumin [Mass/Vol] 2.0 g/dL Low 3.5-5.0 [facility] Comment on above: Performed By: #### L AB19 ####[employer]: MARY SOTELO ([id number])[facility] ([facility])[address] [place] [address] [place] Anion gap [Moles/Vol] 2 mmol/L Low 3-13 [facility] Comment on above: Performed By: #### L AB19 ####[employer]: MARY SOTELO ([id number])[facility] ([facility])[address] [place] [address] Calcium [Mass/Vol] 7.4 mg/dL Low 8.4-10.4 [facility] Comment on above: Performed By: #### L AB19 ####[employer]: MARY SOTELO ([id number])[facility] [place] [address] [place] Chloride [Moles/Vol] 106 mmol/L Normal 98-107 [facility] Comment on above: Performed By: #### L AB19 ####[employer]: MARY SOTELO ([id number])[facility] [place] [address] [place] CO2 [Moles/Vol] 24 mmol/L Normal 22-30 [facility] Comment on above: Performed By: #### L AB19 ####[employer]: MARY SOTELO ([id number])[facility])[address] [place] [address] Creatinine [Mass/Vol] 0.90 mg/dL Normal 0.52-1.04 [facility] Comment on above: Performed By: #### L AB19 ####[employer]: MARY SOTELO ([id number])[facility])[address] [place] [address] GLOMERULAR FILTRATION RATE ML/MIN/1.73 SQ M.PREDICTED 71.5 mL/min/1.73m*2 Normal >60.0 [facility] Comment on above: Result Comment: Calc ulation based on the Chronic Kidney Disease Epidemiology Collaboration (CKD-EPI) equation refit without adjustment for race Performed By: #### L AB19 ####[employer]: MARY SOTELO ([id number])[facility])[address] [place] [address] Glucose [Mass/Vol] 119 mg/dL High 70-100 [facility] Comment on above: Performed By: #### L AB19 ####[employer]: MARY SOTELO ([id number])[facility])[address] [place] [address] Phosphate [Mass/Vol] 2.6 mg/dL Normal 2.5-4.5 [facility] Comment on above: Performed By: #### L AB19 ####[employer]: MARY SOTELO ([id number])[facility])[address] [place] [address] Potassium [Moles/Vol] 4.0 mmol/L Normal 3.5-5.1 [facility] Comment on above: Performed By: #### L AB19 ####[employer]: MARY SOTELO ([id number])[facility])[address] [place] [address] Sodium [Moles/Vol] 133 mmol/L Low 135-145 [facility] Comment on above: Performed By: #### L AB19 ####[employer]: MARY SOTELO ([id number])[facility] ([facility])[address] [place] [address] Urea nitrogen [Mass/Vol] 14 mg/dL Normal 7-17 [facility] Comment on above: Performed By: #### L AB19 ####[employer]: MARY SOTELO ([id number])[facility] ([facility])[address] [place] [address] Albumin [Mass/Vol] 2.1 g/dL Low 3.5-5.0 [facility] Comment on above: Performed By: #### L AB19 ####[employer]: MARY SOTELO ([id number])[facility] ([facility])[address] [place] [address] Anion gap [Moles/Vol] 3 mmol/L Normal 3-13 [facility] Comment on above: Performed By: #### L AB19 ####[employer]: MARY SOTELO ([id number])[facility] ([facility])[address] [place] [address] Calcium [Mass/Vol] 7.8 mg/dL Low 8.4-10.4 [facility] Comment on above: Performed By: #### L AB19 ####[employer]: MARY SOTELO ([id number])[facility] ([facility])[address] [place] [address] [place] Chloride [Moles/Vol] 105 mmol/L Normal 98-107 [facility] Comment on above: Performed By: #### L AB19 ####[employer]: MARY SOTELO ([id number])[facility] ([facility])[address] [place] [address] [place] CO2 [Moles/Vol] 25 mmol/L Normal 22-30 [facility] Comment on above: Performed By: #### L AB19 ####[employer]: MARY SOTELO ([id number])[facility] [place] [address] [place] Creatinine [Mass/Vol] 0.85 mg/dL Normal 0.52-1.04 [facility] Comment on above: Performed By: #### L AB19 ####[employer]: MARY SOTELO ([id number])[facility])[address] [place] [address] GLOMERULAR FILTRATION RATE ML/MIN/1.73 SQ M.PREDICTED 76.6 mL/min/1.73m*2 Normal >60.0 [facility] Comment on above: Result Comment: Calc ulation based on the Chronic Kidney Disease Epidemiology Collaboration (CKD-EPI) equation refit without adjustment for race Performed By: #### L AB19 ####[employer]: MARY SOTELO ([id number])[facility])[address] [place] [address] Glucose [Mass/Vol] 161 mg/dL High 70-100 [facility] Comment on above: Performed By: #### L AB19 ####[employer]: MARY SOTELO ([id number])[facility] ([facility])[address] [place] [address] Phosphate [Mass/Vol] 3.0 mg/dL Normal 2.5-4.5 [facility] Comment on above: Performed By: #### L [id number] ####Doughnut Dough Mixer: MARY SOTELO ([id number])[facility] ([facility])[address] [place] [address] Potassium [Moles/Vol] 4.2 mmol/L Normal 3.5-5.1 [facility] Comment on above: Performed By: #### L [id number] ####Doughnut Dough Mixer: MARY SOTELO ([id number])[facility] ([facility])[address] [place] [address] [place] Sodium [Moles/Vol] 133 mmol/L Low 135-145 [facility] Comment on above: Performed By: #### L [id number] ####Doughnut Dough Mixer: MARY SOTELO ([id number])[facility])[address] [place] [address] [place] Urea nitrogen [Mass/Vol] 15 mg/dL Normal 7-17 [facility] Comment on above: Performed By: #### L [id number] ####Doughnut Dough Mixer: MARY SOTELO ([id number])[facility] ([address] Renal function 2000 panelon 08-01-2024 Albumin [Mass/Vol] 2.1 g/dL Low 3.5 - 5.0 g/dL [facility] Anion gap [Moles/Vol] 3 mmol/L 3 - 13 mmol/L [facility] Calcium [Mass/Vol] 7.2 mg/dL Low 8.4 - 10. 4 mg/dL [facility] Chloride [Moles/Vol] 106 mmol/L 98 - 10 7 mmol/L [facility] CO2 [Moles/Vol] 23 mmol/L 22 - 30 mmol/L [facility] Creatinine [Mass/Vol] 0.87 mg/dL 0.52 - 1.04 mg/dL [facility] GFR/1.73 sq M.predicted (S/P/Bld) [Vol rate/Area] 74.5 mL/min - PINF [facility] Glucose [Mass/Vol] 170 mg/dL High 70 - 100 mg/dL [facility] Interpretation and review of laboratory results Abnormal [facility] Phosphate [Mass/Vol] 2.3 mg/dL Low 2.5 - 4 .5 mg/dL [facility] Potassium [Moles/Vol] 4.1 mmol/L 3.5 - 5.1 mmol/L [facility] Sodium [Moles/Vol] 132 mmol/L Low 135 - 145 mmol/L [facility] Urea nitrogen [Mass/Vol] 13 mg/dL 7 - 17 mg/dL [facility] Albumin [Mass/Vol] 2.0 g/dL Low 3.5 - 5.0 g/dL [facility] Anion gap [Moles/Vol] 2 mmol/L Low 3 - 13 mmol/L [facility] Calcium [Mass/Vol] 7.4 mg/dL Low 8.4 - 10. 4 mg/dL [facility] Chloride [Moles/Vol] 106 mmol/L 98 - 10 7 mmol/L [facility] CO2 [Moles/Vol] 24 mmol/L 22 - 30 mmol/L [facility] Creatinine [Mass/Vol] 0.90 mg/dL 0.52 - 1.04 mg/dL [facility] GFR/1.73 sq M.predicted (S/P/Bld) [Vol rate/Area] 71.5 mL/min - PINF [facility] Glucose [Mass/Vol] 119 mg/dL High 70 - 100 mg/dL [facility] Interpretation and review of laboratory results Abnormal [facility] Phosphate [Mass/Vol] 2.6 mg/dL 2.5 - 4 .5 mg/dL [facility] Potassium [Moles/Vol] 4.0 mmol/L 3.5 - 5.1 mmol/L [facility] Sodium [Moles/Vol] 133 mmol/L Low 135 - 145 mmol/L [facility] Urea nitrogen [Mass/Vol] 14 mg/dL 7 - 17 mg/dL [facility] Albumin [Mass/Vol] 2.1 g/dL Low 3.5 - 5.0 g/dL [facility] Anion gap [Moles/Vol] 3 mmol/L 3 - 13 mmol/L [facility] Calcium [Mass/Vol] 7.8 mg/dL Low 8.4 - 10. 4 mg/dL [facility] Chloride [Moles/Vol] 105 mmol/L 98 - 10 7 mmol/L [facility] CO2 [Moles/Vol] 25 mmol/L 22 - 30 mmol/L [facility] Creatinine [Mass/Vol] 0.85 mg/dL 0.52 - 1.04 mg/dL [facility] GFR/1.73 sq M.predicted (S/P/Bld) [Vol rate/Area] 76.6 mL/min - PINF [facility] Glucose [Mass/Vol] 161 mg/dL High 70 - 100 mg/dL [facility] Interpretation and review of laboratory results Abnormal [facility] Phosphate [Mass/Vol] 3.0 mg/dL 2.5 - 4 .5 mg/dL [facility] Potassium [Moles/Vol] 4.2 mmol/L 3.5 - 5.1 mmol/L [facility] Sodium [Moles/Vol] 133 mmol/L Low 135 - 145 mmol/L [facility] Urea nitrogen [Mass/Vol] 15 mg/dL 7 - 17 mg/dL [facility] ABO and Rh group Confirm Nom (Bld)on 07-31-2024 ABO group Nom (Bld) O [facility] D Ag Ql (RBC) Positive [facility] BLOOD GAS ARTERIALon 07-31-2 024 Base excess Calc (Bld) [Moles/Vol] -0.9000 mmol/L Normal -3.0-3.0 [facility] Comment on above: Performed By: #### L [id number] ####[employer]er: MARY SOTELO ([id number])[facility] ([facility])[address] [place] [address] CO2 [Moles/Vol] 26.4 mmol/L Normal 23.0-27.0 [facility] Comment on above: Performed By: #### L [id number] ####[employer]er: MARY SOTELO ([id number])[facility] ([facility])[address] [place] [address] HCO3 (Bld) [Moles/Vol] 25.0 mmol/L Normal 21.0-25.0 [facility] Comment on above: Performed By: #### L [id number] ####[employer]er: MARY SOTELO ([id number])[facility] ([facility])[address] [place] [address] Hemoglobin (Bld) [Mass/Vol] 7.1 g/dL Normal Screen only [facility] Comment on above: Performed By: #### L [id number] ####[employer]er: MARY SOTELO ([id number])[facility] ([facility])[address] [place] [address] OXYGEN SATURATION (%) IN ARTERIAL BLOOD 98.0 % Normal 95.0-100.0 [facility] Comment on above: Performed By: #### L [id number] ####[employer]er: MARY SOTELO ([id number])[facility] ([facility])[address] [place] [address] PCO2 ARTERIAL 47.9 mm Hg High >35.0-<45.0 [facility] Comment on above: Performed By: #### L [id number] ####[employer]er: MARY SOTELO ([id number])[facility] ([facility])[address] [place] [address] PH ARTERIAL 7.335 Low 7.350-7.450 [facility] Comment on above: Performed By: #### L [id number] ####D[employer] Mixer: MARY SOTELO ([id number])[facility])[address] [place] [address] PO2 ARTERIAL 143.8 mm Hg High 80.0-100.0 [facility] Comment on above: Performed By: #### L [id number] ####D[employer]er: MARY SOTELO ([id number])[facility])[address] [place] [address] SOURCE OF OXYGEN Nasal cannula Normal [facility] Comment on above: Performed By: #### L [id number] ####D[employer]er: MARY SOTELO ([id number])[facility])[address] [place] [address] BLOOD TYPE AND SCREEN GELon 07-31-2024 ABO GROUPING O Normal [facility] Comment on above: Performed By: #### L [id number] ####D[employer] Mixer: MARY SOTELO ([id number])[facility] ([facility])[address] [place] [address] RH TYPE IN BLOOD Positive Normal [facility] Comment on above: Performed By: #### L [id number] ####D[employer]er: MARY SOTELO ([id number])[facility] ([facility])[address] [place] [address] Blood type and Crossmatch benton dawson (Bld)on 07-31-2024 ABO group Nom (Bld) O [facility] Blood group antibody screen GEL Ql Negative [facility]) [facility] CALCIUM, IONIZEDon 4 CALCIUM IONIZED 4.70 mg/dL Normal 4.30-5.20 [facility] Comment on above: Performed By: #### L [id number] ####D[employer] D[employer] Mixer: MARY SOTELO ([id number])[facility])[address] [place] [address] PH, IONIZED CALCIUM 7.31 Normal 7.31-7.46 [facility] Comment on above: Performed By: #### L [id number] ####D[employer]er: MARY SOTELO ([id number])[facility] ([facility])[address] [place] [address] CALCIUM IONIZED 4.80 mg/dL Normal 4.30-5.20 [facility] Comment on above: Performed By: #### L [id number] ####D[employer] D[employer] Mixer: MARY SOTELO ([id number])[facility] ([facility])[address] [place] [address] PH, IONIZED CALCIUM 7.36 Normal 7.31-7.46 [facility] Comment on above: Performed By: #### L [id number] ####D[employer]er: MARY SOTELO ([id number])[facility])[address] [place] [address] CALCIUM IONIZED 4.90 mg/dL Normal 4.30-5.20 [facility] Comment on above: Performed By: #### L [id number] ####D[employer]er: MARY SOTELO ([id number])[facility] ([facility])[address] [place] [address] PH, IONIZED CALCIUM 7.35 Normal 7.31-7.46 [facility] Comment on above: Performed By: #### L [id number] ####D[employer]er: MARY SOTELO ([id number])[facility] ([facility])[address] [place] [address] CALCIUM IONIZED 4.80 mg/dL Normal 4.30-5.20 [facility] Comment on above: Performed By: #### L [id number] ####D[employer] D[employer] Mixer: MARY SOTELO ([id number])[facility])[address] [place] [address] PH, IONIZED CALCIUM 7.38 Normal 7.31-7.46 [facility] Comment on above: Performed By: #### L [id number] ####D[employer]er: MARY SOTELO ([id number])[facility] ([facility])[address] [place] [address] CBC (HEMOGRAM)on 09-28-2024 Erythrocyte distribution width (RBC) [Ratio] 15.2 % High 11.5-15.0 [facility] Comment on above: Performed By: #### L [id number] ####D[employer]er: MARY SOTELO ([id number])[facility])[address] [place] [address] Hematocrit (Bld) [Volume fraction] 21.6 % Low 35.0-47.0 [facility] Comment on above: Performed By: #### L [id number] ####D[employer] Mixer: MARY SOTELO ([id number])[facility])[address] [place] [address] Hemoglobin (Bld) [Mass/Vol] 6.8 g/dL Critically low 11.7-16.0 [facility] Comment on above: Performed By: #### L [id number] ####D[employer] D[employer] Mixer: MARY SOTELO ([id number])[facility])[address] [place] [address] MCH (RBC) [Entitic mass] 28.7 pg Normal 26.0-34.0 [facility] Comment on above: Performed By: #### L [id number] ####D[employer] D[employer] Mixer: MARY SOTELO ([id number])[facility])[address] [place] [address] MCHC 31.5 % Normal 30.5-36.0 [facility] Comment on above: Performed By: #### L [id number] ####D[employer]er: MARY SOTELO ([id number])[facility])[address] [place] [address] MCV (RBC) [Entitic vol] 91.1 fL Normal 77.0-99.0 [facility] Comment on above: Performed By: #### L [id number] ####D[employer]er: MARY SOTELO ([id number])[facility])[address] [place] [address] Platelet mean volume (Bld) [Entitic vol] 10.9 fL Normal 9.0-12.7 [facility] Comment on above: Performed By: #### L [id number] ####D[employer]er: MARY SOTELO ([id number])[facility])[address] [place] [address] Platelets (Bld) [#/Vol] 158 10*3/uL Normal 140-440 [facility] Comment on above: Performed By: #### L [id number] ####D[employer]er: MARY SOTELO ([id number])[facility] ([facility])[address] [place] [address] RBC (Bld) [#/Vol] 2.37 10*6/uL Low 3.80-5.20 [facility] Comment on above: Performed By: #### L [id number] ####D[employer]er: MARY SOTELO ([id number])[facility] ([facility])[address] [place] [address] WBC (Bld) [#/Vol] 15.0 10*3/uL High 3.6-10.7 [facility] Comment on above: Performed By: #### L [id number] ####D[employer] Mixer: MARY SOTELO ([id number])[facility] ([facility])[address] [place] [address] CBC W Auto Differential pane l (Bld)on 07-31-2024 Basophils (Bld) [#/Vol] 0.0 10*3/uL 0.0 - 0.2 10*3/uL [facility] Basophils/100 WBC (Bld) 0.1 % 0.0 - 2.0 % [facility] Eosinophils (Bld) [#/Vol] 0.0 10*3/uL 0.0 - 0.5 10*3/uL [facility] Eosinophils/100 WBC (Bld) 0.2 % 0.0 - 6.0 % [facility] Erythrocyte distribution width (RBC) [Ratio] 15.2 % High 11.5 - 15.0 % [facility] Hematocrit (Bld) [Volume fraction] 22.3 % Low 35.0 - 47.0 % [facility] Hemoglobin (Bld) [Mass/Vol] 7.1 g/dL Low 11.7 - 16.0 g/dL [facility] Immature granulocytes (Bld) [#/Vol] 0.0 10*3/uL NINF - 0.1 10*3/uL [facility] Immature granulocytes/100 WBC (Bld) 0.3 % 0.0 - 2.0 % [facility] Interpretation and review of laboratory results Abnormal [facility] Lymphocytes (Bld) [#/Vol] 0.6 10*3/uL Low 1.0 - 4.3 10*3/uL [facility] Lymphocytes/100 WBC (Bld) 4.7 % Low 15.0 - 45.0 % [facility] MCH (RBC) [Entitic mass] 29.6 pg 26.0 - 34.0 pg [facility] [employer] MCHC (RBC) [Mass/Vol] 31.8 % 30.5 - 36.0 % [facility] MCV (RBC) [Entitic vol] 92.9 fL 77.0 - 99.0 fL [facility] Monocytes (Bld) [#/Vol] 0.6 10*3/uL 0.0 - 0.9 10*3/uL [facility] Monocytes/100 WBC (Bld) 4.4 % Low 5.0 - 13.0 % [facility] Neutrophils (Bld) [#/Vol] 12.0 10*3/uL High 1.8 - 7.5 10*3/uL [facility] Neutrophils/100 WBC (Bld) 90.3 % High 38.0 - 82.0 % [facility] Nucleated RBC/100 WBC (Bld) [Ratio] 0.0 % [facility] [employer] Platelet mean volume (Bld) [Entitic vol] 10.7 fL 9.0 - 12.7 fL [facility] Platelets (Bld) [#/Vol] 146 10*3/uL 140 - 440 10*3/uL [facility] RBC (Bld) [#/Vol] 2.40 10*6/uL Low 3.80 - 5.2 0 10*6/uL [facility] WBC (Bld) [#/Vol] 13.3 10*3/uL High 3.6 - 10.7 10*3/uL [facility] CBC W Auto Differential pane l (Bld)Ordered By: Olamide Orozco on 07-31-2024 Basophils (Bld) [#/Vol] 0.0 10*3/uL 0.0 - 0.2 10*3/uL [facility] Basophils/100 WBC (Bld) 0.1 % 0.0 - 2.0 % [facility] Eosinophils (Bld) [#/Vol] 0.0 10*3/uL 0.0 - 0.5 10*3/uL [facility] Eosinophils/100 WBC (Bld) 0.2 % 0.0 - 6.0 % [facility] Erythrocyte distribution width (RBC) [Ratio] 15.1 % High 11.5 - 15.0 % [facility] Hematocrit (Bld) [Volume fraction] 22.9 % Low 35.0 - 47.0 % [facility] Hemoglobin (Bld) [Mass/Vol] 7.2 g/dL Low 11.7 - 16.0 g/dL [facility] Immature granulocytes (Bld) [#/Vol] 0.1 10*3/uL High NINF - 0.1 10*3/uL [facility] Immature granulocytes/100 WBC (Bld) 0.4 % 0.0 - 2.0 % [facility] Interpretation and review of laboratory results Abnormal [facility] Lymphocytes (Bld) [#/Vol] 0.5 10*3/uL Low 1.0 - 4.3 10*3/uL [facility] Lymphocytes/100 WBC (Bld) 3.6 % Low 15.0 - 45.0 % [facility] MCH (RBC) [Entitic mass] 28.9 pg 26.0 - 34.0 pg [facility] MCHC (RBC) [Mass/Vol] 31.4 % 30.5 - 36.0 % [facility] MCV (RBC) [Entitic vol] 92.0 fL 77.0 - 99.0 fL [facility] Monocytes (Bld) [#/Vol] 0.3 10*3/uL 0.0 - 0.9 10*3/uL [facility] Monocytes/100 WBC (Bld) 2.0 % Low 5.0 - 13.0 % [facility] Neutrophils (Bld) [#/Vol] 13.2 10*3/uL High 1.8 - 7.5 10*3/uL [facility] Neutrophils/100 WBC (Bld) 93.7 % High 38.0 - 82.0 % [facility] Nucleated RBC/100 WBC (Bld) [Ratio] 0.0 % [facility] Platelet mean volume (Bld) [Entitic vol] 10.5 fL 9.0 - 12.7 fL [facility] Platelets (Bld) [#/Vol] 135 10*3/uL Low 140 - 440 10*3/uL [facility] RBC (Bld) [#/Vol] 2.49 10*6/uL Low 3.80 - 5.2 0 10*6/uL [facility] WBC (Bld) [#/Vol] 14.0 10*3/uL High 3.6 - 10.7 10*3/uL [facility] CBC WITH AUTO DIFFERENTIALon 07-31-2024 Basophils (Bld) [#/Vol] 0.0 10*3/uL Normal 0.0-0.2 [facility] Comment on above: Performed By: #### L [id number] ####D[employer] Mixer: MARY SOTELO ([id number])[facility])[address] [place] [address] Basophils/100 WBC (Bld) 0.1 % Normal 0.0-2.0 [facility] Comment on above: Performed By: #### L [id number] ####D[employer] D[employer] Mixer: MARY SOTELO ([id number])[facility])[address] [place] [address] Eosinophils (Bld) [#/Vol] 0.0 10*3/uL Normal 0.0-0.5 [facility] Comment on above: Performed By: #### L [id number] ####D[employer] D[employer] Mixer: MARY SOTELO ([id number])[facility])[address] [place] [address] Eosinophils/100 WBC (Bld) 0.2 % Normal 0.0-6.0 [facility] Comment on above: Performed By: #### L [id number] ####D[employer] D[employer]er: MARY SOTELO ([id number])[facility])[address] [place] [address] Erythrocyte distribution width (RBC) [Ratio] 15.2 % High 11.5-15.0 [facility] Comment on above: Performed By: #### L [id number] ####D[employer] D[employer]er: MARY SOTELO ([id number])[facility])[address] [place] [address] Hematocrit (Bld) [Volume fraction] 22.3 % Low 35.0-47.0 [facility] Comment on above: Performed By: #### L [id number] ####D[employer]er: MARY SOTELO ([id number])[facility])[address] [place] [address] Hemoglobin (Bld) [Mass/Vol] 7.1 g/dL Low 11.7-16.0 [facility] Comment on above: Performed By: #### L [id number] ####[employer]er: MARY SOTELO ([id number])[address] IMMATURE GRANS % 0.3 % Normal 0.0-2.0 [facility] Comment on above: Performed By: #### L [id number] ####D[employer]er: MARY SOTELO ([id number])[address] IMMATURE GRANS ABSOLUTE 0.0 10*3/uL Normal <0.1 [facility] Comment on above: Performed By: #### L [id number] ####D[employer] D[employer]er: MARY SOTELO ([id number])[facility])[address] [place] [address] Lymphocytes (Bld) [#/Vol] 0.6 10*3/uL Low 1.0-4.3 [facility] Comment on above: Performed By: #### L [id number] ####D[employer]er: MARY SOTELO ([id number])[address] Lymphocytes/100 WBC (Bld) 4.7 % Low 15.0-45.0 [facility] Comment on above: Performed By: #### L [id number] ####D[employer] D[employer] Mixer: MARY SOTELO ([id number])[facility])[address] [place] [address] MCH (RBC) [Entitic mass] 29.6 pg Normal 26.0-34.0 [facility] Comment on above: Performed By: #### L [id number] ####D[employer] D[employer] Mixer: MARY SOTELO ([id number])[facility])[address] [place] [address] MCHC 31.8 % Normal 30.5-36.0 [facility] Comment on above: Performed By: #### L [id number] ####D[employer] D[employer] Mixer: MARY SOTELO ([id number])[facility])[address] [place] [address] MCV (RBC) [Entitic vol] 92.9 fL Normal 77.0-99.0 [facility] Comment on above: Performed By: #### L [id number] ####D[employer] D[employer] Mixer: MARY SOTELO ([id number])[facility])[address] [place] [address] Monocytes (Bld) [#/Vol] 0.6 10*3/uL Normal 0.0-0.9 [facility] Comment on above: Performed By: #### L [id number] ####D[employer] D[employer]er: MARY SOTELO ([id number])[facility])[address] [place] [address] Monocytes/100 WBC (Bld) 4.4 % Low 5.0-13.0 [facility] Comment on above: Performed By: #### L [id number] ####D[employer]er: MARY SOTELO ([id number])[facility])[address] [place] [address] NEUTROPHILS ABSOLUTE 12.0 10*3/uL High 1.8-7.5 [facility] Comment on above: Performed By: #### L [id number] ####D[employer] D[employer] Mixer: MARY SOTELO ([id number])[facility])[address] [place] [address] Neutrophils/100 WBC (Bld) 90.3 % High 38.0-82.0 [facility] Comment on above: Performed By: #### L [id number] ####D[employer] D[employer] Mixer: MARY SOTELO ([id number])[facility] ([facility])[address] [place] [address] NRBC 0.0 /100 WBCs Normal 0.0-2.0 [facility] Comment on above: Performed By: #### L [id number] ####D[employer] D[employer]er: MARY SOTELO ([id number])[facility] ([facility])[address] [place] [address] Platelet mean volume (Bld) [Entitic vol] 10.7 fL Normal 9.0-12.7 [facility] Comment on above: Performed By: #### L [id number] ####[employer]er: MARY SOTELO ([id number])[facility] ([facility])[address] [place] [address] Platelets (Bld) [#/Vol] 146 10*3/uL Normal 140-440 [facility] Comment on above: Performed By: #### L [id number] ####[employer]er: MARY SOTELO ([id number])[facility] ([facility])[address] [place] [address] RBC (Bld) [#/Vol] 2.40 10*6/uL Low 3.80-5.20 [facility] Comment on above: Performed By: #### L [id number] ####[employer]er: MARY SOTELO ([id number])[facility] ([facility])[address] [place] [address] WBC (Bld) [#/Vol] 13.3 10*3/uL High 3.6-10.7 [facility] Comment on above: Performed By: #### L [id number] ####[employer]: MARY SOTELO ([id number])[facility] ([facility])[address] [place] [address] Basophils (Bld) [#/Vol] 0.0 10*3/uL Normal 0.0-0.2 [facility] Comment on above: Performed By: #### L [id number] ####[employer]er: MARY SOTELO ([id number])[facility])[address] [place] [address] Basophils/100 WBC (Bld) 0.1 % Normal 0.0-2.0 [facility] Comment on above: Performed By: #### L [id number] ####[employer]: MARY SOTELO ([id number])[facility])[address] [place] [address] Eosinophils (Bld) [#/Vol] 0.0 10*3/uL Normal 0.0-0.5 [facility] Comment on above: Performed By: #### L [id number] ####[employer]: MARY SOTELO ([id number])[facility])[address] [place] [address] Eosinophils/100 WBC (Bld) 0.2 % Normal 0.0-6.0 [facility] Comment on above: Performed By: #### L [id number] ####[employer]: MARY SOTELO ([id number])[facility])[address] [place] [address] Erythrocyte distribution width (RBC) [Ratio] 15.1 % High 11.5-15.0 [facility] Comment on above: Performed By: #### L [id number] ####[employer]: MARY SOTELO ([id number])[facility])[address] [place] [address] Hematocrit (Bld) [Volume fraction] 22.9 % Low 35.0-47.0 [facility] Comment on above: Performed By: #### L [id number] ####Doughnut Dough Mixer: MARY SOTELO ([id number])[facility])[address] [place] [address] Hemoglobin (Bld) [Mass/Vol] 7.2 g/dL Low 11.7-16.0 [facility] Comment on above: Performed By: #### L [id number] ####Doughnut Dough Mixer: MARY SOTELO ([id number])[facility])[address] [place] [address] IMMATURE GRANS % 0.4 % Normal 0.0-2.0 [facility] Comment on above: Performed By: #### L [id number] ####Doughnut Dough Mixer: MARY SOTELO ([id number])[facility])[address] [place] [address] IMMATURE GRANS ABSOLUTE 0.1 10*3/uL High <0.1 [facility] Comment on above: Performed By: #### L [id number] ####Doughnut Dough Mixer: MARY SOTELO ([id number])[address] Lymphocytes (Bld) [#/Vol] 0.5 10*3/uL Low 1.0-4.3 [facility] Comment on above: Performed By: #### L [id number] ####Doughnut Dough Mixer: MARY SOTELO ([id number])[facility])[address] [place] [address] Lymphocytes/100 WBC (Bld) 3.6 % Low 15.0-45.0 [facility] Comment on above: Performed By: #### L [id number] ####Doughnut Dough Mixer: MARY SOTELO ([id number])[facility])[address] [place] [address] MCH (RBC) [Entitic mass] 28.9 pg Normal 26.0-34.0 [facility] Comment on above: Performed By: #### L [id number] ####Doughnut Dough Mixer: MARY SOTELO ([id number])[address] MCHC 31.4 % Normal 30.5-36.0 [facility] Comment on above: Performed By: #### L [id number] ####Doughnut Dough Mixer: MARY SOTELO ([id number])[facility])[address] [place] [address] MCV (RBC) [Entitic vol] 92.0 fL Normal 77.0-99.0 [facility] Comment on above: Performed By: #### L [id number] ####Doughnut Dough Mixer: MARY SOTELO ([id number])[facility])[address] [place] [address] Monocytes (Bld) [#/Vol] 0.3 10*3/uL Normal 0.0-0.9 [facility] Comment on above: Performed By: #### L [id number] ####Doughnut Dough Mixer: MARY SOTELO ([id number])[facility])[address] [place] [address] Monocytes/100 WBC (Bld) 2.0 % Low 5.0-13.0 [facility] Comment on above: Performed By: #### L [id number] ####Doughnut Dough Mixer: MARY SOTELO ([id number])[facility] ([facility])[address] [place] [address] NEUTROPHILS ABSOLUTE 13.2 10*3/uL High 1.8-7.5 [facility] Comment on above: Performed By: #### L [id number] ####Doughnut Dough Mixer: MARY SOTELO ([id number])[facility])[address] [place] [address] Neutrophils/100 WBC (Bld) 93.7 % High 38.0-82.0 [facility] Comment on above: Performed By: #### L [id number] ####D[employer]nut D[employer] Mixer: MARY SOTELO ([id number])[facility])[address] [place] [address] NRBC 0.0 /100 WBCs Normal 0.0-2.0 [facility] Comment on above: Performed By: #### L [id number] ####Doughnut D[employer] Mixer: MARY SOTELO ([id number])[facility] ([facility])[address] [place] [address] Platelet mean volume (Bld) [Entitic vol] 10.5 fL Normal 9.0-12.7 [facility] Comment on above: Performed By: #### L [id number] ####D[employer] D[employer]er: MARY SOTELO ([id number])[facility] ([facility])[address] [place] [address] Platelets (Bld) [#/Vol] 135 10*3/uL Low 140-440 [facility] Comment on above: Performed By: #### L [id number] ####Doughnut D[employer] Mixer: MARY SOTELO ([id number])[facility] ([facility])[address] [place] [address] RBC (Bld) [#/Vol] 2.49 10*6/uL Low 3.80-5.20 [facility] Comment on above: Performed By: #### L [id number] ####D[employer] D[employer] Mixer: MARY SOTELO ([id number])[facility] ([facility])[address] [place] [address] WBC (Bld) [#/Vol] 14.0 10*3/uL High 3.6-10.7 [facility] Comment on above: Performed By: #### L [id number] ####D[employer]nut D[employer] Mixer: MARY SOTELO ([id number])[facility] ([facility])[address] [place] [address] CBC panel Auto (Bld)Ordered By: Akbar Warner on 07-31-2024 Erythrocyte distribution width (RBC) [Ratio] 15.2 % High 11.5 - 15.0 % [facility] Hematocrit (Bld) [Volume fraction] 21.6 % Low 35.0 - 47.0 % [facility] Hemoglobin (Bld) [Mass/Vol] 6.8 g/dL Critically low 11.7 - 16.0 g/dL [facility] Interpretation and review of laboratory results Abnormal [facility] MCH (RBC) [Entitic mass] 28.7 pg 26.0 - 34.0 pg [facility] MCHC (RBC) [Mass/Vol] 31.5 % 30.5 - 36.0 % [facility] MCV (RBC) [Entitic vol] 91.1 fL 77.0 - 99.0 fL [facility] Platelet mean volume (Bld) [Entitic vol] 10.9 fL 9.0 - 12.7 fL [facility] Platelets (Bld) [#/Vol] 158 10*3/uL 140 - 440 10*3/uL [facility] RBC (Bld) [#/Vol] 2.37 10*6/uL Low 3.80 - 5.2 0 10*6/uL [facility] WBC (Bld) [#/Vol] 15.0 10*3/uL High 3.6 - 10.7 10*3/uL [facility] Calcium.ionized [Moles/Vol]o n 07-31-2024 Calcium.ionized (Bld) [Moles/Vol] 4.70 mg/dL 4.30 - 5.20 mg/dL [facility] Interpretation and review of laboratory results Normal [facility] PH, IONIZED CALCIUM 7.31 7.31 - 7.46 [facility] Calcium.ionized (Bld) [Moles/Vol] 4.80 mg/dL 4.30 - 5.20 mg/dL [facility] Interpretation and review of laboratory results Normal [facility] PH, IONIZED CALCIUM 7.36 7.31 - 7.46 [facility] Calcium.ionized (Bld) [Moles/Vol] 4.90 mg/dL 4.30 - 5.20 mg/dL [facility] Interpretation and review of laboratory results Normal [facility] PH, IONIZED CALCIUM 7.35 7.31 - 7.46 [facility] Calcium.ionized (Bld) [Moles/Vol] 4.80 mg/dL 4.30 - 5.20 mg/dL [facility] Interpretation and review of laboratory results Normal [facility] PH, IONIZED CALCIUM 7.38 7.31 - 7.46 [facility] HEMOGLOBIN AND HEMATOCRIT, B LOODon 07-31-2024 Hematocrit (Bld) [Volume fraction] 25.4 % Low 35.0-47.0 [facility] System [facility] Comment on above: Order Comment: Recom mend 1 hour post transfusion Performed By: #### L [id number] ####Doughnut Dough Mixer: MARY SOTELO ([id number])[address] Hemoglobin (Bld) [Mass/Vol] 8.0 g/dL Low 11.7-16.0 [facility] [employer] [facility] Comment on above: Order Comment: Recom mend 1 hour post transfusion Performed By: #### L [id number] ####Doughnut Dough Mixer: MARY SOTELO ([id number])[facility] ([facility])[address] [place] [id number] [facility] Hemoglobin (Bld) [Mass/Vol]o n 07-31-2024 Hematocrit (Bld) [Volume fraction] 25.4 % Low 35.0 - 47.0 % [facility] Interpretation and review of laboratory results Abnormal [facility] IDNon 07-31-2024 IDN Normal [facility] Laboratory - Chemistry and C hemistry - challengeon 07-31-2024 Glucose [Mass/Vol] 107 mg/dL High 70 - 100 mg/dL [facility] Glucose [Mass/Vol] 118 mg/dL High 70 - 100 mg/dL [facility] [employer] Glucose [Mass/Vol] 61 mg/dL Low 70 - 100 mg/dL [facility] [employer] Glucose [Mass/Vol] 127 mg/dL High 70 - 100 mg/dL [facility] [employer] Base excess Calc (Bld) [Moles/Vol] -0.9000 mmol/L -3.0 - 3.0 mmol/L [facility] [employer] CO2 (Bld) [Partial pressure] 47.9 mm[Hg] High - PINF [facility] CO2 [Moles/Vol] 26.4 mmol/L 23.0 - 27.0 mmol/L [facility] HCO3 (Bld) [Moles/Vol] 25.0 mmol/L 21.0 - 25.0 mmol/L [facility] Oxygen (Bld) [Partial pressure] 143.8 mm[Hg] High [facility] [employer] pH (Bld) 7.335 [pH] Low 7.350 - 7.450 [facility] [employer] Glucose [Mass/Vol] 177 mg/dL High 70 - 100 mg/dL [facility] Glucose [Mass/Vol] 237 mg/dL High 70 - 100 mg/dL [facility] Laboratory - Hematology and Cell countson 07-31-2024 Hemoglobin (Bld) [Mass/Vol] 8.0 g/dL Low 11.7 - 16.0 g/dL [facility] Hemoglobin (Bld) [Mass/Vol] 7.1 g/dL Screen only [facility] No Panel Informationon 07-31 Interpretation and review of laboratory results Abnormal [facility] Interpretation and review of laboratory results Abnormal [facility] Interpretation and review of laboratory results Abnormal [facility] Blood Expiration Date [id number] [facility] Crossmatch interpretation COMP [facility] Dispense Status Transfused [facility] Product Blood Type 5100 [facility] PRODUCT CODE [id number] [facility] ABO O [facility] Unit Number [id number] [facility] alth Unit RH Positive [facility] Unit Volume 300 mL [facility] Interpretation and review of laboratory results Abnormal [facility] Interpretation and review of laboratory results Abnormal [facility] Source Of Oxygen Nasal cannula [facility] Interpretation and review of laboratory results Abnormal [facility] Interpretation and review of laboratory results Abnormal [facility] Progress Noteon 07-31-2024 Progress Note Normal [facility] Progress Note Normal [facility] Progress Note Normal [facility] RENAL FUNCTION PANELon 07-31 Albumin [Mass/Vol] 1.9 g/dL Low 3.5-5.0 [facility] Comment on above: Performed By: #### L [id number] ####Doughnut Dough Mixer: MARY SOTELO ([id number])[facility] ([address] Anion gap [Moles/Vol] 1 mmol/L Low 3-13 [facility] Comment on above: Performed By: #### L [id number] ####D[employer] D[employer] Mixer: MARY SOTELO ([id number])[facility] ([facility])[address] [place] [address] Calcium [Mass/Vol] 8.2 mg/dL Low 8.4-10.4 [facility] Comment on above: Performed By: #### L [id number] ####Doughnut Dough Mixer: MARY [id number])[facility])[address] [place], [place] [id number] [place] Chloride [Moles/Vol] 104 mmol/L Normal 98-107 [facility] Comment on above: Performed By: #### L [id number] ####Doughnut Dough Mixer: MARY SOTELO ([id number])[facility] ([facility])[address] [place] [address] CO2 [Moles/Vol] 25 mmol/L Normal 22-30 [facility] Comment on above: Performed By: #### L [id number] ####Doughnut Dough Mixer: MARY SOTELO ([id number])[facility] ([facility])[address] [place] [address] Creatinine [Mass/Vol] 0.81 mg/dL Normal 0.52-1.04 [facility] Comment on above: Performed By: #### L [id number] ####Doughnut Dough Mixer: MARY SOTELO ([id number])[facility] ([facility])[address] [place] [address] [place] GLOMERULAR FILTRATION RATE ML/MIN/1.73 SQ M.PREDICTED 81.2 mL/min/1.73m*2 Normal >60.0 [facility] Comment on above: Result Comment: Calc ulation based on the Chronic Kidney Disease Epidemiology Collaboration (CKD-EPI) equation refit without adjustment for race Performed By: #### L [id number] ####Doughnut Dough Mixer: MARY SOTELO ([id number])[facility] ([facility])[address] [place] [address] [place] Glucose [Mass/Vol] 173 mg/dL High 70-100 [facility] Comment on above: Performed By: #### L [id number] ####Doughnut Dough Mixer: MARY SOTELO ([id number])[facility] ([facility])[address] [place] [address] [place] Phosphate [Mass/Vol] 3.1 mg/dL Normal 2.5-4.5 [facility] Comment on above: Performed By: #### L [id number] ####Doughnut Dough Mixer: MARY SOTELO ([id number])[facility] ([facility])[address] [place] [address] [place] Potassium [Moles/Vol] 3.9 mmol/L Normal 3.5-5.1 [facility] Comment on above: Performed By: #### L [id number] ####Doughnut D[employer] Mixer: MARY SOTELO ([id number])[facility] ([facility])[address] [place] [address] Sodium [Moles/Vol] 130 mmol/L Low 135-145 [facility] Comment on above: Performed By: #### L [id number] ####Doughnut D[employer] Mixer: MARY SOTELO ([id number])[facility] ([facility])[address] [place] [address] Urea nitrogen [Mass/Vol] 16 mg/dL Normal 7-17 [facility] Comment on above: Performed By: #### L [id number] ####D[employer]nut D[employer] Mixer: MARY SOTELO ([id number])[facility] ([facility])[address] [place] [address] Albumin [Mass/Vol] 1.9 g/dL Low 3.5-5.0 [facility] Comment on above: Performed By: #### L [id number] ####Doughnut Dough Mixer: MARY SOTELO ([id number])[facility] ([facility])[address] [place] [address] Anion gap [Moles/Vol] 2 mmol/L Low 3-13 [facility] Comment on above: Performed By: #### L AB19 ####Doughnut Dough Mixer: MARY SOTELO ([id number])[facility] ([facility])[address] [place] [address] Calcium [Mass/Vol] 8.7 mg/dL Normal 8.4-10.4 [facility] Comment on above: Performed By: #### L [id number] ####Doughnut Dough Mixer: MARY SOTELO ([id number])[facility] ([facility])[address] [place] [address] Chloride [Moles/Vol] 105 mmol/L Normal 98-107 [facility] Comment on above: Performed By: #### L [id number] ####Doughnut Dough Mixer: MARY SOTELO ([id number])[facility] ([facility])[address] [place] [address] CO2 [Moles/Vol] 25 mmol/L Normal 22-30 [facility] Comment on above: Performed By: #### L AB19 ####Doughnut Dough Mixer: MARY SOTELO ([id number])[facility] ([facility])[address] [place] [address] Creatinine [Mass/Vol] 0.89 mg/dL Normal 0.52-1.04 [facility] Comment on above: Performed By: #### L [id number] ####Doughnut Dough Mixer: MARY SOTELO ([id number])[facility] ([facility])[address] [place] [address] GLOMERULAR FILTRATION RATE ML/MIN/1.73 SQ M.PREDICTED 72.5 mL/min/1.73m*2 Normal >60.0 [facility] Comment on above: Result Comment: Calc ulation based on the Chronic Kidney Disease Epidemiology Collaboration (CKD-EPI) equation refit without adjustment for race Performed By: #### L [id number] ####Doughnut Dough Mixer: MARY SOTELO ([id number])[facility] ([facility])[address] [place] [address] Glucose [Mass/Vol] 104 mg/dL High 70-100 [facility] Comment on above: Performed By: #### L [id number] ####Doughnut Dough Mixer: MARY SOTELO ([id number])[facility] ([facility])[address] [place] [address] [place] Phosphate [Mass/Vol] 3.2 mg/dL Normal 2.5-4.5 [facility] Comment on above: Performed By: #### L [id number] ####Doughnut Dough Mixer: MARY SOTELO ([id number])[facility] ([facility])[address] [place] [address] [place] Potassium [Moles/Vol] 3.7 mmol/L Normal 3.5-5.1 [facility] Comment on above: Performed By: #### L [id number] ####Doughnut Dough Mixer: MARY SOTELO ([id number])[facility] ([facility])[address] [place] [address] Sodium [Moles/Vol] 132 mmol/L Low 135-145 [facility] Comment on above: Performed By: #### L AB19 ####Doughnut Dough Mixer: MARY SOTELO ([id number])[facility] ([facility])[address] [place] [address] Urea nitrogen [Mass/Vol] 19 mg/dL High 7-17 [facility] Comment on above: Performed By: #### L AB19 ####Doughnut D[employer] Mixer: MARY SOTELO ([id number])[facility] ([facility])[address] [place] [address] Albumin [Mass/Vol] 2.1 g/dL Low 3.5-5.0 [facility] Comment on above: Performed By: #### L [id number] ####Doughnut Dough Mixer: MARY SOTELO ([id number])[facility] ([facility])[address] [place] [address] Anion gap [Moles/Vol] 3 mmol/L Normal 3-13 [facility] Comment on above: Performed By: #### L AB19 ####Doughnut D[employer] Mixer: MARY SOTELO ([id number])[facility] ([facility])[address] [place] [address] Calcium [Mass/Vol] 8.7 mg/dL Normal 8.4-10.4 [facility] Comment on above: Performed By: #### L [id number] ####Doughnut D[employer] Mixer: MARY SOTELO ([id number])[facility] ([facility])[address] [place] [address] Chloride [Moles/Vol] 105 mmol/L Normal 98-107 [facility] Comment on above: Performed By: #### L AB19 ####Doughnut Dough Mixer: MARY SOTELO ([id number])[facility] ([facility])[address] [place] [address] CO2 [Moles/Vol] 24 mmol/L Normal 22-30 [facility] Comment on above: Performed By: #### L AB19 ####Doughnut Dough Mixer: MARY SOTELO ([id number])[facility] [place] [address] Creatinine [Mass/Vol] 0.91 mg/dL Normal 0.52-1.04 [facility] Comment on above: Performed By: #### L AB19 ####Doughnut D[employer] Mixer: MARY SOTELO ([id number])[facility] [place] [address] [place] GLOMERULAR FILTRATION RATE ML/MIN/1.73 SQ M.PREDICTED 70.6 mL/min/1.73m*2 Normal >60.0 [facility] Comment on above: Result Comment: Calc ulation based on the Chronic Kidney Disease Epidemiology Collaboration (CKD-EPI) equation refit without adjustment for race Performed By: #### L AB19 ####Doughnut D[employer] Mixer: MARY SOTELO ([id number])[facility] ([facility])[address] [place] [address] Glucose [Mass/Vol] 161 mg/dL High 70-100 [facility] Comment on above: Performed By: #### L AB19 ####Doughnut D[employer] Mixer: MARY SOTELO ([id number])[facility] ([facility])[address] [place] [address] [place] Phosphate [Mass/Vol] 3.8 mg/dL Normal 2.5-4.5 [facility] Comment on above: Performed By: #### L AB19 ####Doughnut Dough Mixer: MARY SOTELO ([id number])[facility] [place] [address] [place] Potassium [Moles/Vol] 4.2 mmol/L Normal 3.5-5.1 [facility] Comment on above: Performed By: #### L AB19 ####Doughnut Dough Mixer: MARY SOTELO ([id number])[facility] ([facility])[address] [place] [address] Sodium [Moles/Vol] 131 mmol/L Low 135-145 [facility] Comment on above: Performed By: #### L AB19 ####Doughnut Dough Mixer: MARY SOTELO ([id number])[facility])[address] Urea nitrogen [Mass/Vol] 22 mg/dL High 7-17 [facility] Comment on above: Performed By: #### L AB19 ####Doughnut D[employer] Mixer: MARY SOTELO ([id number])[facility])[address] [place] [address] Albumin [Mass/Vol] 2.2 g/dL Low 3.5-5.0 [facility] Comment on above: Performed By: #### L AB19 ####Doughnut D[employer] Mixer: MARY SOTELO ([id number])[facility] [place] [address] Anion gap [Moles/Vol] 3 mmol/L Normal 3-13 [facility] Comment on above: Performed By: #### L AB19 ####Doughnut D[employer] Mixer: MARY SOTELO ([id number])[facility] ([facility])[address] [place] [address] Calcium [Mass/Vol] 8.7 mg/dL Normal 8.4-10.4 [facility] Comment on above: Performed By: #### L AB19 ####Doughnut D[employer] Mixer: MARY SOTELO ([id number])[facility] ([facility])[address] [place] [address] Chloride [Moles/Vol] 105 mmol/L Normal 98-107 [facility] Comment on above: Performed By: #### L AB19 ####Doughnut D[employer] Mixer: MRAY SOTELO ([id number])[facility] ([facility])[address] [place] [address] [place] CO2 [Moles/Vol] 24 mmol/L Normal 22-30 [facility] Comment on above: Performed By: #### L AB19 ####Doughnut D[employer] Mixer: MARY SOTELO ([id number])[facility] ([facility])[address] [place] [address] Creatinine [Mass/Vol] 0.98 mg/dL Normal 0.52-1.04 [facility] Comment on above: Performed By: #### L AB19 ####D[employer]er: MARY SOTELO ([id number])[facility] ([facility])[address] [place] [address] [place] GLOMERULAR FILTRATION RATE ML/MIN/1.73 SQ M.PREDICTED 64.6 mL/min/1.73m*2 Normal >60.0 [facility] Comment on above: Result Comment: Calc ulation based on the Chronic Kidney Disease Epidemiology Collaboration (CKD-EPI) equation refit without adjustment for race Performed By: #### L AB19 ####D[employer]: MARY SOTELO ([id number])[facility] ([facility])[address] [place] [address] Glucose [Mass/Vol] 229 mg/dL High 70-100 [facility] Comment on above: Performed By: #### L AB19 ####D[employer]er: MARY SOTELO ([id number])[facility] ([facility])[address] [place] [address] Phosphate [Mass/Vol] 4.0 mg/dL Normal 2.5-4.5 [facility] Comment on above: Performed By: #### L AB19 ####D[employer]er: MARY SOTELO ([id number])[facility] ([facility])[address] [place] [address] [place] Potassium [Moles/Vol] 4.5 mmol/L Normal 3.5-5.1 [facility] Comment on above: Performed By: #### L AB19 ####Doughnut D[employer] Mixer: MARY SOTELO ([id number])[facility])[address] [place] [address] [place] Sodium [Moles/Vol] 132 mmol/L Low 135-145 [facility] Comment on above: Performed By: #### L AB19 ####D[employer] D[employer]er: MARY SOTELO ([id number])[facility])[address] [place] [address] [place] Urea nitrogen [Mass/Vol] 24 mg/dL High 7-17 [facility] Comment on above: Performed By: #### L AB19 ####[employer]: MARY SOTELO ([id number])[facility] ([facility])[address] [place] [address] Renal function 2000 panelon 07-31-2024 Albumin [Mass/Vol] 1.9 g/dL Low 3.5 - 5.0 g/dL [facility] Anion gap [Moles/Vol] 1 mmol/L Low 3 - 13 mmol/L [facility] Calcium [Mass/Vol] 8.2 mg/dL Low 8.4 - 10. 4 mg/dL [facility] Chloride [Moles/Vol] 104 mmol/L 98 - 10 7 mmol/L [facility] CO2 [Moles/Vol] 25 mmol/L 22 - 30 mmol/L [facility] Creatinine [Mass/Vol] 0.81 mg/dL 0.52 - 1.04 mg/dL [facility] GFR/1.73 sq M.predicted (S/P/Bld) [Vol rate/Area] 81.2 mL/min - PINF [facility] Glucose [Mass/Vol] 173 mg/dL High 70 - 100 mg/dL [facility] Interpretation and review of laboratory results Abnormal [facility] Phosphate [Mass/Vol] 3.1 mg/dL 2.5 - 4 .5 mg/dL [facility] Potassium [Moles/Vol] 3.9 mmol/L 3.5 - 5.1 mmol/L [facility] Sodium [Moles/Vol] 130 mmol/L Low 135 - 145 mmol/L [facility] Urea nitrogen [Mass/Vol] 16 mg/dL 7 - 17 mg/dL [facility] Albumin [Mass/Vol] 1.9 g/dL Low 3.5 - 5.0 g/dL [facility] Anion gap [Moles/Vol] 2 mmol/L Low 3 - 13 mmol/L [facility] Calcium [Mass/Vol] 8.7 mg/dL 8.4 - 10. 4 mg/dL [facility] Chloride [Moles/Vol] 105 mmol/L 98 - 10 7 mmol/L [facility] CO2 [Moles/Vol] 25 mmol/L 22 - 30 mmol/L [facility] Creatinine [Mass/Vol] 0.89 mg/dL 0.52 - 1.04 mg/dL [facility] GFR/1.73 sq M.predicted (S/P/Bld) [Vol rate/Area] 72.5 mL/min - PINF [facility] Glucose [Mass/Vol] 104 mg/dL High 70 - 100 mg/dL [facility] Interpretation and review of laboratory results Abnormal [facility] Phosphate [Mass/Vol] 3.2 mg/dL 2.5 - 4 .5 mg/dL [facility] Potassium [Moles/Vol] 3.7 mmol/L 3.5 - 5.1 mmol/L [facility] Sodium [Moles/Vol] 132 mmol/L Low 135 - 145 mmol/L [facility] Urea nitrogen [Mass/Vol] 19 mg/dL High 7 - 17 mg/dL [facility] Albumin [Mass/Vol] 2.1 g/dL Low 3.5 - 5.0 g/dL [facility] Anion gap [Moles/Vol] 3 mmol/L 3 - 13 mmol/L [facility] Calcium [Mass/Vol] 8.7 mg/dL 8.4 - 10. 4 mg/dL [facility] Chloride [Moles/Vol] 105 mmol/L 98 - 10 7 mmol/L [facility] CO2 [Moles/Vol] 24 mmol/L 22 - 30 mmol/L [facility] Creatinine [Mass/Vol] 0.91 mg/dL 0.52 - 1.04 mg/dL [facility] GFR/1.73 sq M.predicted (S/P/Bld) [Vol rate/Area] 70.6 mL/min - PINF [facility] Glucose [Mass/Vol] 161 mg/dL High 70 - 100 mg/dL [facility] Interpretation and review of laboratory results Abnormal [facility] Phosphate [Mass/Vol] 3.8 mg/dL 2.5 - 4 .5 mg/dL [facility] Potassium [Moles/Vol] 4.2 mmol/L 3.5 - 5.1 mmol/L [facility] Sodium [Moles/Vol] 131 mmol/L Low 135 - 145 mmol/L [facility] Urea nitrogen [Mass/Vol] 22 mg/dL High 7 - 17 mg/dL [facility] Albumin [Mass/Vol] 2.2 g/dL Low 3.5 - 5.0 g/dL [facility] Anion gap [Moles/Vol] 3 mmol/L 3 - 13 mmol/L [facility] Calcium [Mass/Vol] 8.7 mg/dL 8.4 - 10. 4 mg/dL [facility] Chloride [Moles/Vol] 105 mmol/L 98 - 10 7 mmol/L [facility] CO2 [Moles/Vol] 24 mmol/L 22 - 30 mmol/L [facility] Creatinine [Mass/Vol] 0.98 mg/dL 0.52 - 1.04 mg/dL [facility] GFR/1.73 sq M.predicted (S/P/Bld) [Vol rate/Area] 64.6 mL/min - PINF [facility] Glucose [Mass/Vol] 229 mg/dL High 70 - 100 mg/dL [facility] Interpretation and review of laboratory results Abnormal [facility] Phosphate [Mass/Vol] 4.0 mg/dL 2.5 - 4 .5 mg/dL [facility] Potassium [Moles/Vol] 4.5 mmol/L 3.5 - 5.1 mmol/L [facility] Sodium [Moles/Vol] 132 mmol/L Low 135 - 145 mmol/L [facility] Urea nitrogen [Mass/Vol] 24 mg/dL High 7 - 17 mg/dL [facility] BLOOD GAS ARTERIALon 024 Base excess Calc (Bld) [Moles/Vol] 1.9 mmol/L Normal -3.0-3.0 [facility] Comment on above: Performed By: #### L [id number] ####Doughnut Dough Mixer: MARY SOTELO ([id number])[facility])[address] [place] [address] CO2 [Moles/Vol] 28.3 mmol/L High 23.0-27.0 [facility] Comment on above: Performed By: #### L [id number] ####Doughnut Dough Mixer: MARY SOTELO ([id number])[facility] ([facility])[address] [place] [address] [place] HCO3 (Bld) [Moles/Vol] 26.9 mmol/L High 21.0-25.0 [facility] Comment on above: Performed By: #### L [id number] ####Doughnut Dough Mixer: MARY SOTELO ([id number])[facility] ([facility])[address] [place] [address] [place] Hemoglobin (Bld) [Mass/Vol] 7.7 g/dL Normal Screen only [facility] Comment on above: Performed By: #### L [id number] ####Doughnut Dough Mixer: MARY SOTEOL ([id number])[facility] ([facility])[address] [place] [address] OXYGEN SATURATION (%) IN ARTERIAL BLOOD 97.9 % Normal 95.0-100.0 [facility] Comment on above: Performed By: #### L [id number] ####Doughnut Dough Mixer: MARY SOTELO ([id number])[facility] ([facility])[address] [place] [address] PCO2 ARTERIAL 44.6 mm Hg Normal >35.0-<45.0 [facility] Comment on above: Performed By: #### L [id number] ####Doughnut Dough Mixer: MARY SOTELO ([id number])[facility] ([facility])[address] [place] [address] PH ARTERIAL 7.399 Normal 7.350-7.450 [facility] Comment on above: Performed By: #### L [id number] ####Doughnut Dough Mixer: MARY SOTELO ([id number])[facility] ([facility])[address] [place] [address] PO2 ARTERIAL 113.8 mm Hg High 80.0-100.0 [facility] Comment on above: Performed By: #### L [id number] ####Doughnut Dough Mixer: MARY SOTELO ([id number])[facility] ([facility])[address] [place] [address] SOURCE OF OXYGEN 30% Oxygen Normal [facility] Comment on above: Result Comment: lon llator Performed By: #### L [id number] ####Doughnut Dough Mixer: MARY SOTELO ([id number])[facility] ([facility])[address] [place] [address] Base excess Calc (Bld) [Moles/Vol] 0.7 mmol/L Normal -3.0-3.0 [facility] Comment on above: Performed By: #### L [id number] ####Doughnut Dough Mixer: MARY SOTELO ([id number])[facility] [place] [address] CO2 [Moles/Vol] 27.6 mmol/L High 23.0-27.0 [facility] Comment on above: Performed By: #### L [id number] ####Doughnut Dough Mixer: MARY SOTELO ([id number])[facility] [place] [address] HCO3 (Bld) [Moles/Vol] 26.2 mmol/L High 21.0-25.0 [facility] Comment on above: Performed By: #### L [id number] ####Doughnut Dough Mixer: MARY SOTELO ([id number])[facility] ([facility])[address] [place] [address] Hemoglobin (Bld) [Mass/Vol] 7.9 g/dL Normal Screen only [facility] Comment on above: Performed By: #### L [id number] ####Doughnut Dough Mixer: MARY SOTELO ([id number])[facility] ([facility])[address] [place] [address] OXYGEN SATURATION (%) IN ARTERIAL BLOOD 97.2 % Normal 95.0-100.0 [facility] Comment on above: Performed By: #### L [id number] ####Doughnut Dough Mixer: MARY SOTELO ([id number])[facility] [place] [address] PCO2 ARTERIAL 46.3 mm Hg High >35.0-<45.0 [facility] Comment on above: Performed By: #### L [id number] ####Doughnut Dough Mixer: MARY SOTELO ([id number])[facility] ([facility])[address] [place] [address] PH ARTERIAL 7.370 Normal 7.350-7.450 [facility] Comment on above: Performed By: #### L [id number] ####Doughnut Dough Mixer: MARY SOTELO ([id number])[facility] [place] [address] PO2 ARTERIAL 114.1 mm Hg High 80.0-100.0 [facility] Comment on above: Performed By: #### L [id number] ####Doughnut Dough Mixer: MARY SOTELO ([id number])[facility])[address] [place] [address] SOURCE OF OXYGEN Vent Normal [facility] Comment on above: Performed By: #### L [id number] ####Doughnut Dough Mixer: MARY SOTELO ([id number])[facility])[address] [place] [address] [place] CALCIUM, IONIZEDon 4 CALCIUM IONIZED 4.90 mg/dL Normal 4.30-5.20 [facility] Comment on above: Performed By: #### L AB54 ####Doughnut Dough Mixer: MARY SOTELO ([id number])[facility])[address] [place] [address] PH, IONIZED CALCIUM 7.34 Normal 7.31-7.46 [facility] Comment on above: Performed By: #### L [id number] ####Doughnut Dough Mixer: MARY SOTELO ([id number])[facility] ([facility])[address] [place] [address] CALCIUM IONIZED 4.20 mg/dL Low 4.30-5.20 [facility] Comment on above: Performed By: #### L [id number] ####Doughnut Dough Mixer: MARY SOTELO ([id number])[facility])[address] [place] [address] PH, IONIZED CALCIUM 7.43 Normal 7.31-7.46 [facility] Comment on above: Performed By: #### L [id number] ####Doughnut Dough Mixer: MARY SOTELO ([id number])[facility])[address] [place] [address] [place] CALCIUM IONIZED 4.10 mg/dL Low 4.30-5.20 [facility] Comment on above: Performed By: #### L [id number] ####Doughnut Dough Mixer: MARY SOTELO ([id number])[facility])[address] [place] [address] [place] PH, IONIZED CALCIUM 7.42 Normal 7.31-7.46 [facility] Comment on above: Performed By: #### L [id number] ####Doughnut Dough Mixer: MARY SOTELO ([id number])[facility])[address] [place] [address] CALCIUM IONIZED 4.30 mg/dL Normal 4.30-5.20 [facility] Comment on above: Performed By: #### L [id number] ####Doughnut Dough Mixer: MARY SOTELO ([id number])[facility])[address] [place] [address] PH, IONIZED CALCIUM 7.37 Normal 7.31-7.46 [facility] Comment on above: Performed By: #### L AB54 ####Doughnut Dough Mixer: MARY SOTELO ([id number])[facility])[address] [place] [address] [place] 07-30-2024 [place] Normal [facility] CBC WITH AUTO DIFFERENTIALon 07-30-2024 Basophils (Bld) [#/Vol] 0.0 10*3/uL Normal 0.0-0.2 [facility] Comment on above: Performed By: #### L [id number] ####Doughnut Dough Mixer: MARY SOTELO ([id number])[facility] ([facility])[address] [place] [address] Basophils/100 WBC (Bld) 0.0 % Normal 0.0-2.0 [facility] Comment on above: Performed By: #### L [id number] ####Doughnut Dough Mixer: MARY SOTELO ([id number])[facility] ([facility])[address] [place] [address] Eosinophils (Bld) [#/Vol] 0.0 10*3/uL Normal 0.0-0.5 [facility] Comment on above: Performed By: #### L [id number] ####Doughnut Dough Mixer: MARY SOTELO ([id number])[facility])[address] [place] [address] [place] Eosinophils/100 WBC (Bld) 0.0 % Normal 0.0-6.0 [facility] Comment on above: Performed By: #### L [id number] ####Doughnut Dough Mixer: MARY SOTELO ([id number])[facility])[address] [place] [address] Erythrocyte distribution width (RBC) [Ratio] 15.5 % High 11.5-15.0 [facility] Comment on above: Performed By: #### L [id number] ####Doughnut Dough Mixer: MARY SOTELO ([id number])[facility])[address] [place] [address] Hematocrit (Bld) [Volume fraction] 23.0 % Low 35.0-47.0 [facility] Comment on above: Performed By: #### L [id number] ####Doughnut Dough Mixer: MARY SOTELO ([id number])[address] Hemoglobin (Bld) [Mass/Vol] 7.3 g/dL Low 11.7-16.0 [facility] Comment on above: Performed By: #### L [id number] ####Doughnut Dough Mixer: MARY SOTELO ([id number])[address] IMMATURE GRANS % 0.4 % Normal 0.0-2.0 [facility] Comment on above: Performed By: #### L [id number] ####Doughnut Dough Mixer: MARY SOTELO ([id number])[address] IMMATURE GRANS ABSOLUTE 0.1 10*3/uL High <0.1 [facility] Comment on above: Performed By: #### L [id number] ####Doughnut Dough Mixer: MARY SOTELO ([id number])[facility])[address] [place] [address] Lymphocytes (Bld) [#/Vol] 0.6 10*3/uL Low 1.0-4.3 [facility] Comment on above: Performed By: #### L [id number] ####Doughnut Dough Mixer: MARY SOTELO ([id number])[facility])[address] [place] [address] Lymphocytes/100 WBC (Bld) 4.3 % Low 15.0-45.0 [facility] Comment on above: Performed By: #### L [id number] ####Doughnut Dough Mixer: MARY SOTELO ([id number])[facility])[address] [place] [address] MCH (RBC) [Entitic mass] 28.6 pg Normal 26.0-34.0 [facility] Comment on above: Performed By: #### L [id number] ####Doughnut Dough Mixer: MARY SOTELO ([id number])[facility])[address] [place] [address] MCHC 31.7 % Normal 30.5-36.0 [facility] Comment on above: Performed By: #### L [id number] ####Doughnut Dough Mixer: MARY SOTELO ([id number])[facility] ([facility])[address] [place] [address] MCV (RBC) [Entitic vol] 90.2 fL Normal 77.0-99.0 [facility] Comment on above: Performed By: #### L [id number] ####Doughnut Dough Mixer: MARY SOTELO ([id number])[facility])[address] [place] [address] Monocytes (Bld) [#/Vol] 0.6 10*3/uL Normal 0.0-0.9 [facility] Comment on above: Performed By: #### L [id number] ####Doughnut Dough Mixer: MARY SOTELO ([id number])[facility])[address] [place] [address] Monocytes/100 WBC (Bld) 4.4 % Low 5.0-13.0 [facility] Comment on above: Performed By: #### L [id number] ####Doughnut Dough Mixer: MARY SOTELO ([id number])[facility] [place] [address] NEUTROPHILS ABSOLUTE 12.3 10*3/uL High 1.8-7.5 [facility] Comment on above: Performed By: #### L [id number] ####Doughnut Dough Mixer: MARY SOTELO ([id number])[facility] ([facility])[address] [place] [address] Neutrophils/100 WBC (Bld) 90.9 % High 38.0-82.0 [facility] Comment on above: Performed By: #### L [id number] ####Doughnut Dough Mixer: MARY SOTELO ([id number])[facility] ([facility])[address] [place] [address] NRBC 0.0 /100 WBCs Normal 0.0-2.0 [facility] Comment on above: Performed By: #### L [id number] ####Doughnut Dough Mixer: MARY SOTELO ([id number])[facility] ([facility])[address] [place] [address] Platelet mean volume (Bld) [Entitic vol] 10.5 fL Normal 9.0-12.7 [facility] Comment on above: Performed By: #### L [id number] ####Doughnut Dough Mixer: MARY SOTELO ([id number])[facility] ([facility])[address] [place] [address] Platelets (Bld) [#/Vol] 161 10*3/uL Normal 140-440 [facility] Comment on above: Performed By: #### L [id number] ####Doughnut Dough Mixer: MARY SOTELO ([id number])[facility] ([facility])[address] [place] [address] RBC (Bld) [#/Vol] 2.55 10*6/uL Low 3.80-5.20 [facility] Comment on above: Performed By: #### L [id number] ####Doughnut Dough Mixer: MARY SOTELO ([id number])[facility] ([facility])[address] [place] [address] [place] WBC (Bld) [#/Vol] 13.6 10*3/uL High 3.6-10.7 [facility] Comment on above: Performed By: #### L [id number] ####Doughnut Dough Mixer: MARY SOTELO ([id number])[facility] [place] [address] IDNon 07-30-2024 IDN Normal [facility] Laboratory - Chemistry and C hemistry - challengeon 07-30-2024 Glucose [Mass/Vol] 165 mg/dL High 70 - 100 mg/dL [facility] No Panel Informationon 07-30 Interpretation and review of laboratory results Abnormal [facility] Nursing Noteon 07-30-2024 Nursing Note Patient pulled out O G tube. Also pulled out ET tube a couple centimeters. . Respiratory therapist advanced ET tube. OG tube place to 55cm. Will get Xray. Restarted Fentanyl. Precedex maxed. Normal [facility] Nursing Note Patient got ahold of suction tubing on ET tube. Pulled her ET tube out a couple centimeters. Respiratory therapist notified. Normal [facility] Progress Noteon 07-30-2024 Progress Note Normal [facility] Progress Note Normal [facility] Progress Note Normal [facility] Progress Note Normal [facility] Progress Note PHYSICAL THERAPY [facility] Name/MRN: Sandy Deng ([id number]) Date: 07/30/2024 Screen Note. Pt remains intubated and sedated with orders for strict bed rest. Will continue to follow and re-attempt as able. Jennifer Saldaña, SPT Normal [facility] Progress Note Normal [facility] RENAL FUNCTION PANELon 07-30 Albumin [Mass/Vol] 2.0 g/dL Low 3.5-5.0 [facility] Comment on above: Performed By: #### L [id number] ####Doughnut Dough Mixer: MARY SOTELO ([id number])[facility] ([facility])[address] [place] [address] Anion gap [Moles/Vol] 0 mmol/L Low 3-13 [facility] Comment on above: Performed By: #### L [id number] ####Doughnut Dough Mixer: MARY SOTELO ([id number])[facility] ([facility])[address] [place] [address] Calcium [Mass/Vol] 8.7 mg/dL Normal 8.4-10.4 [facility] Comment on above: Performed By: #### L [id number] ####Doughnut Dough Mixer: MARY SOTELO ([id number])[facility] ([facility])[address] [place] [address] [place] Chloride [Moles/Vol] 104 mmol/L Normal 98-107 [facility] Comment on above: Performed By: #### L [id number] ####Doughnut Dough Mixer: MARY SOTELO ([id number])[facility] ([facility])[address] [place] [address] CO2 [Moles/Vol] 28 mmol/L Normal 22-30 [facility] Comment on above: Performed By: #### L [id number] ####Doughnut Dough Mixer: MARY SOTELO ([id number])[facility] ([facility])[address] [place] [address] Creatinine [Mass/Vol] 0.98 mg/dL Normal 0.52-1.04 [facility] Comment on above: Performed By: #### L [id number] ####Doughnut Dough Mixer: MARY SOTELO ([id number])[facility] ([facility])[address] [place] [address] [place] GLOMERULAR FILTRATION RATE ML/MIN/1.73 SQ M.PREDICTED 64.6 mL/min/1.73m*2 Normal >60.0 [facility] Comment on above: Result Comment: Calc ulation based on the Chronic Kidney Disease Epidemiology Collaboration (CKD-EPI) equation refit without adjustment for race Performed By: #### L [id number] ####Doughnut Dough Mixer: MARY SOTELO ([id number])[facility] ([facility])[address] [place] [address] [place] Glucose [Mass/Vol] 114 mg/dL High 70-100 [facility] Comment on above: Performed By: #### L [id number] ####Doughnut Dough Mixer: MARY SOTELO ([id number])[facility] Phosphate [Mass/Vol] 3.7 mg/dL Normal 2.5-4.5 [facility] Comment on above: Performed By: #### L [id number] ####Doughnut Dough Mixer: MARY SOTELO ([id number])[facility])[address] Potassium [Moles/Vol] 4.5 mmol/L Normal 3.5-5.1 [facility] Comment on above: Performed By: #### L [id number] ####Doughnut Dough Mixer: MARY SOTELO ([id number])[facility] ([facility])[address] [place] [address] Sodium [Moles/Vol] 132 mmol/L Low 135-145 [facility] Comment on above: Performed By: #### L [id number] ####Doughnut Dough Mixer: MARY SOTELO ([id number])[facility] [place] [address] Urea nitrogen [Mass/Vol] 24 mg/dL High 7-17 [facility] Comment on above: Performed By: #### L [id number] ####Doughnut Dough Mixer: MARY SOTELO ([id number])[facility] [place] [address] Albumin [Mass/Vol] 2.0 g/dL Low 3.5-5.0 [facility] Comment on above: Performed By: #### L [id number] ####Doughnut Dough Mixer: MARY SOTELO ([id number])[facility] [place] [address] [place] Anion gap [Moles/Vol] 1 mmol/L Low 3-13 [facility] Comment on above: Performed By: #### L [id number] ####Doughnut Dough Mixer: MARY SOTELO ([id number])[facility] [place] [address] [place] Calcium [Mass/Vol] 7.7 mg/dL Low 8.4-10.4 [facility] Comment on above: Performed By: #### L [id number] ####Doughnut Dough Mixer: MARY SOTELO ([id number])[facility] ([facility])[address] [place] [address] Chloride [Moles/Vol] 104 mmol/L Normal 98-107 [facility] Comment on above: Performed By: #### L [id number] ####Doughnut Dough Mixer: MARY SOTELO ([id number])[facility] ([facility])[address] [place] [address] CO2 [Moles/Vol] 28 mmol/L Normal 22-30 [facility] Comment on above: Performed By: #### L [id number] ####Doughnut Dough Mixer: MARY SOTELO ([id number])[facility] ([facility])[address] [place] [address] Creatinine [Mass/Vol] 1.19 mg/dL High 0.52-1.04 [facility] Comment on above: Performed By: #### L [id number] ####Doughnut Dough Mixer: MARY SOTELO ([id number])[facility] ([facility])[address] [place] [address] GLOMERULAR FILTRATION RATE ML/MIN/1.73 SQ M.PREDICTED 51.2 mL/min/1.73m*2 Low >60.0 [facility] Comment on above: Result Comment: Calc ulation based on the Chronic Kidney Disease Epidemiology Collaboration (CKD-EPI) equation refit without adjustment for race Performed By: #### L [id number] ####Doughnut Dough Mixer: MARY SOTELO ([id number])[facility] ([facility])[address] [place] [address] [place] Glucose [Mass/Vol] 89 mg/dL Normal 70-100 [facility] Comment on above: Performed By: #### L [id number] ####Doughnut Dough Mixer: MARY SOTELO ([id number])[facility] ([facility])[address] [place] [address] Phosphate [Mass/Vol] 3.6 mg/dL Normal 2.5-4.5 [facility] Comment on above: Performed By: #### L [id number] ####Doughnut Dough Mixer: MARY SOTELO ([id number])[facility] ([facility])[address] [place] [address] Potassium [Moles/Vol] 5.0 mmol/L Normal 3.5-5.1 [facility] Comment on above: Performed By: #### L [id number] ####Doughnut Dough Mixer: MARY SOTELO ([id number])[facility] ([facility])[address] [place] [address] Sodium [Moles/Vol] 133 mmol/L Low 135-145 [facility] Comment on above: Performed By: #### L [id number] ####Doughnut Dough Mixer: MARY SOTELO ([id number])[facility] ([facility])[address] [place] [address] Urea nitrogen [Mass/Vol] 28 mg/dL High 7-17 [facility] Comment on above: Performed By: #### L [id number] ####Doughnut Dough Mixer: MARY SOTELO ([id number])[facility] ([facility])[address] [place] [address] Albumin [Mass/Vol] 2.1 g/dL Low 3.5-5.0 [facility] Comment on above: Performed By: #### L [id number] ####Doughnut Dough Mixer: MARY SOTELO ([id number])[facility] ([facility])[address] [place] [address] [place] Anion gap [Moles/Vol] 1 mmol/L Low 3-13 [facility] Comment on above: Performed By: #### L [id number] ####Doughnut Dough Mixer: MARY SOTELO ([id number])[facility] ([facility])[address] [place] [address] [place] Calcium [Mass/Vol] 7.3 mg/dL Low 8.4-10.4 [facility] Comment on above: Performed By: #### L [id number] ####Doughnut Dough Mixer: MARY SOTELO ([id number])[facility] ([facility])[address] [place] [address] [place] Chloride [Moles/Vol] 105 mmol/L Normal 98-107 [facility] Comment on above: Performed By: #### L [id number] ####Doughnut Dough Mixer: MARY SOTELO ([id number])[facility])[address] [place] [address] CO2 [Moles/Vol] 26 mmol/L Normal 22-30 [facility] Comment on above: Performed By: #### L [id number] ####Doughnut Dough Mixer: MARY SOTELO ([id number])[facility] ([facility])[address] [place] [address] Creatinine [Mass/Vol] 1.37 mg/dL High 0.52-1.04 [facility] Comment on above: Performed By: #### L [id number] ####Doughnut Dough Mixer: MARY SOTELO ([id number])[facility])[address] [place] [address] GLOMERULAR FILTRATION RATE ML/MIN/1.73 SQ M.PREDICTED 43.2 mL/min/1.73m*2 Low >60.0 [facility] Comment on above: Result Comment: Calc ulation based on the Chronic Kidney Disease Epidemiology Collaboration (CKD-EPI) equation refit without adjustment for race Performed By: #### L [id number] ####Doughnut Dough Mixer: MARY SOTELO ([id number])[facility] ([facility])[address] [place] [address] [place] Glucose [Mass/Vol] 149 mg/dL High 70-100 [facility] Comment on above: Performed By: #### L [id number] ####Doughnut Dough Mixer: MARY SOTELO ([id number])[facility] ([facility])[address] [place] [address] [place] Phosphate [Mass/Vol] 4.1 mg/dL Normal 2.5-4.5 [facility] Comment on above: Performed By: #### L AB19 ####Doughnut Dough Mixer: MARY SOTELO ([id number])[facility] ([facility])[address] [place] [id number] [place] Potassium [Moles/Vol] 5.4 mmol/L High 3.5-5.1 [facility] Comment on above: Performed By: #### L [id number] ####Doughnut Dough Mixer: MARY SOTELO ([id number])[facility] ([facility])[address] [place] [address] Sodium [Moles/Vol] 132 mmol/L Low 135-145 [facility] Comment on above: Performed By: #### L [id number] ####Doughnut Dough Mixer: MARY SOTELO ([id number])[facility] ([facility])[address] [place] [address] Urea nitrogen [Mass/Vol] 31 mg/dL High 7-17 [facility] Comment on above: Performed By: #### L [id number] ####Doughnut Dough Mixer: MARY SOTELO ([id number])[facility] ([facility])[address] [place] [address] Albumin [Mass/Vol] 2.0 g/dL Low 3.5-5.0 [facility] Comment on above: Performed By: #### L [id number] ####Doughnut Dough Mixer: MARY SOTELO ([id number])[facility] ([facility])[address] [place] [address] Anion gap [Moles/Vol] 1 mmol/L Low 3-13 [facility] Comment on above: Performed By: #### L [id number] ####Doughnut Dough Mixer: MARY SOTELO ([id number])[facility] ([facility])[address] [place] [address] Calcium [Mass/Vol] 7.6 mg/dL Low 8.4-10.4 [facility] Comment on above: Performed By: #### L [id number] ####Doughnut Dough Mixer: MARY SOTELO ([id number])[facility] ([facility])[address] [place] [address] [place] Chloride [Moles/Vol] 106 mmol/L Normal 98-107 [facility] Comment on above: Performed By: #### L [id number] ####Doughnut Dough Mixer: MARY SOTELO ([id number])[facility] ([facility])[address] [place] [address] [place] CO2 [Moles/Vol] 24 mmol/L Normal 22-30 [facility] Comment on above: Performed By: #### L [id number] ####Doughnut Dough Mixer: MARY SOTELO ([id number])[facility] ([facility])[address] [place] [address] Creatinine [Mass/Vol] 1.54 mg/dL High 0.52-1.04 [facility] Comment on above: Performed By: #### L [id number] ####Doughnut Dough Mixer: MARY SOTELO ([id number])[facility] ([facility])[address] [place] [address] GLOMERULAR FILTRATION RATE ML/MIN/1.73 SQ M.PREDICTED 37.5 mL/min/1.73m*2 Low >60.0 [facility] Comment on above: Result Comment: Calc ulation based on the Chronic Kidney Disease Epidemiology Collaboration (CKD-EPI) equation refit without adjustment for race Performed By: #### L [id number] ####Doughnut Dough Mixer: MARY SOTELO ([id number])[facility] ([facility])[address] [place] [address] [place] Glucose [Mass/Vol] 147 mg/dL High 70-100 [facility] Comment on above: Performed By: #### L [id number] ####Doughnut Dough Mixer: MARY SOTELO ([id number])[facility] ([facility])[address] [place] [address] Phosphate [Mass/Vol] 4.2 mg/dL Normal 2.5-4.5 [facility] Comment on above: Performed By: #### L [id number] ####Doughnut Dough Mixer: MARY SOTELO ([id number])[facility] ([facility])[address] [place] [address] [place] Potassium [Moles/Vol] 5.3 mmol/L High 3.5-5.1 [facility] Comment on above: Performed By: #### L [id number] ####Doughnut Dough Mixer: MARY SOTELO ([id number])[facility] ([facility])[address] [place] [address] [place] Sodium [Moles/Vol] 132 mmol/L Low 135-145 [facility] Comment on above: Performed By: #### L [id number] ####Doughnut Dough Mixer: MARY SOTELO ([id number])[facility])[address] [place] [address] Urea nitrogen [Mass/Vol] 32 mg/dL High 7-17 [facility] Comment on above: Performed By: #### L [id number] ####Doughnut Dough Mixer: MARY SOTELO ([id number])[facility])[address] [place] [address] Renal function 2000 panelon 07-30-2024 Albumin [Mass/Vol] 2.0 g/dL Low 3.5 - 5.0 g/dL [facility] Anion gap [Moles/Vol] 0 mmol/L Low 3 - 13 mmol/L [facility] Calcium [Mass/Vol] 8.7 mg/dL 8.4 - 10. 4 mg/dL [facility] XR CHEST 1 VIEWon 07-30-2024 XR CHEST 1 VIEW Normal [facility] BLOOD GAS ARTERIALon 024 Base excess Calc (Bld) [Moles/Vol] 0.9 mmol/L Normal -3.0-3.0 [facility] Comment on above: Performed By: #### L [id number] ####Doughnut Dough Mixer: MARY SOTELO ([id number])[facility])[address] [place] [address] CO2 [Moles/Vol] 26.3 mmol/L Normal 23.0-27.0 [facility] Comment on above: Performed By: #### L [id number] ####Doughnut Dough Mixer: MARY SOTELO ([id number])[facility] ([facility])[address] [place] [address] HCO3 (Bld) [Moles/Vol] 25.1 mmol/L High 21.0-25.0 [facility] Comment on above: Performed By: #### L [id number] ####Doughnut Dough Mixer: MARY SOTELO ([id number])[facility])[address] [place] [address] Hemoglobin (Bld) [Mass/Vol] 8.3 g/dL Normal Screen only [facility] Comment on above: Performed By: #### L [id number] ####Doughnut Dough Mixer: MARY SOTELO ([id number])[facility] ([facility])[address] [place] [address] OXYGEN SATURATION (%) IN ARTERIAL BLOOD 97.1 % Normal 95.0-100.0 [facility] Comment on above: Performed By: #### L [id number] ####Doughnut Dough Mixer: MARY SOTELO ([id number])[facility] ([facility])[address] [place] [address] PCO2 ARTERIAL 37.9 mm Hg Normal >35.0-<45.0 [facility] Comment on above: Performed By: #### L [id number] ####Doughnut Dough Mixer: MARY SOTELO ([id number])[facility] ([facility])[address] [place] [address] PH ARTERIAL 7.439 Normal 7.350-7.450 [facility] Comment on above: Performed By: #### L [id number] ####Doughnut Dough Mixer: MARY SOTELO ([id number])[facility] ([facility])[address] [place] [address] PO2 ARTERIAL 96.3 mm Hg Normal 80.0-100.0 [facility] Comment on above: Performed By: #### L [id number] ####Doughnut Dough Mixer: MARY SOTELO ([id number])[facility])[address] [place] [address] SOURCE OF OXYGEN 30% Oxygen Normal [facility] Comment on above: Result Comment: vent ilator Performed By: #### L [id number] ####Doughnut Dough Mixer: MARY SOTELO ([id number])[facility] ([facility])[address] [place] [address] Base excess Calc (Bld) [Moles/Vol] 3.5 mmol/L High -3.0-3.0 [facility] Comment on above: Performed By: #### L [id number] ####Doughnut Dough Mixer: MARY SOTELO ([id number])[facility] ([facility])[address] [place] [address] [place] CO2 [Moles/Vol] 27.7 mmol/L High 23.0-27.0 [facility] Comment on above: Performed By: #### L [id number] ####Doughnut Dough Mixer: MARY SOTELO ([id number])[facility] [place] [address] HCO3 (Bld) [Moles/Vol] 26.7 mmol/L High 21.0-25.0 [facility] Comment on above: Performed By: #### L [id number] ####Doughnut Dough Mixer: MARY SOTELO ([id number])[facility] [place] [address] Hemoglobin (Bld) [Mass/Vol] 8.0 g/dL Normal Screen only [facility] Comment on above: Performed By: #### L [id number] ####Doughnut Dough Mixer: MARY SOTELO ([id number])[facility] [place] [address] OXYGEN SATURATION (%) IN ARTERIAL BLOOD 96.2 % Normal 95.0-100.0 [facility] Comment on above: Performed By: #### L [id number] ####Doughnut Dough Mixer: MARY SOTELO ([id number])[facility] [place] [address] PCO2 ARTERIAL 34.5 mm Hg Low >35.0-<45.0 [facility] Comment on above: Performed By: #### L [id number] ####Doughnut Dough Mixer: MARY SOTELO ([id number])[facility] [place] [address] PH ARTERIAL 7.506 High 7.350-7.450 [facility] Comment on above: Performed By: #### L [id number] ####Doughnut Dough Mixer: MARY SOTELO ([id number])[facility] [place] [address] PO2 ARTERIAL 88.9 mm Hg Normal 80.0-100.0 [facility] Comment on above: Performed By: #### L [id number] ####Doughnut Dough Mixer: MARY SOTELO ([id number])[facility])[address] [place] [address] SOURCE OF OXYGEN 30% Oxygen Normal [facility] Comment on above: Result Comment: vent ilator Performed By: #### L [id number] ####Doughnut Dough Mixer: MARY SOTELO ([id number])[facility] ([facility])[address] [place] [address] Base excess Calc (Bld) [Moles/Vol] 1.9 mmol/L Normal -3.0-3.0 [facility] Comment on above: Performed By: #### L [id number] ####Doughnut Dough Mixer: MARY SOTELO ([id number])[facility])[address] [place] [address] CO2 [Moles/Vol] 26.0 mmol/L Normal 23.0-27.0 [facility] Comment on above: Performed By: #### L [id number] ####Doughnut Dough Mixer: MARY SOTELO ([id number])[facility])[address] [place] [address] HCO3 (Bld) [Moles/Vol] 25.0 mmol/L Normal 21.0-25.0 [facility] Comment on above: Performed By: #### L [id number] ####Doughnut Dough Mixer: MARY SOTELO ([id number])[facility])[address] [place] [address] Hemoglobin (Bld) [Mass/Vol] 8.2 g/dL Normal Screen only [facility] Comment on above: Performed By: #### L [id number] ####Doughnut Dough Mixer: MARY SOTELO ([id number])[facility])[address] [place] [address] OXYGEN SATURATION (%) IN ARTERIAL BLOOD 97.9 % Normal 95.0-100.0 [facility] Comment on above: Performed By: #### L [id number] ####Doughnut Dough Mixer: MARY SOTELO ([id number])[facility] ([facility])[address] [place] [address] PCO2 ARTERIAL 32.6 mm Hg Low >35.0-<45.0 [facility] Comment on above: Performed By: #### L [id number] ####Doughnut Dough Mixer: MARY SOTELO ([id number])[facility] [place] [address] PH ARTERIAL 7.502 High 7.350-7.450 [facility] Comment on above: Performed By: #### L [id number] ####Doughnut Dough Mixer: MARY SOTELO ([id number])[facility] ([facility])[address] [place] [address] PO2 ARTERIAL 110.0 mm Hg High 80.0-100.0 [facility] Comment on above: Performed By: #### L [id number] ####Doughnut Dough Mixer: MARY SOTELO ([id number])[facility] ([facility])[address] [place] [address] SOURCE OF OXYGEN Vent Normal [facility] Comment on above: Performed By: #### L [id number] ####Doughnut Dough Mixer: MARY SOTELO ([id number])[facility] ([facility])[address] [place] [address] CALCIUM, IONIZEDon 4 CALCIUM IONIZED 4.70 mg/dL Normal 4.30-5.20 [facility] Comment on above: Performed By: #### L [id number] ####Doughnut Dough Mixer: MARY SOTELO ([id number])[facility] [place] [address] PH, IONIZED CALCIUM 7.41 Normal 7.31-7.46 [facility] Comment on above: Performed By: #### L [id number] ####Doughnut Dough Mixer: MARY SOTELO ([id number])[facility] ([facility])[address] [place] [address] CALCIUM IONIZED 4.30 mg/dL Normal 4.30-5.20 [facility] Comment on above: Performed By: #### L [id number] ####Doughnut Dough Mixer: MARY SOTELO ([id number])[facility])[address] [place] [address] PH, IONIZED CALCIUM 7.44 Normal 7.31-7.46 [facility] Comment on above: Performed By: #### L [id number] ####Doughnut Dough Mixer: MARY SOTELO ([id number])[facility])[address] [place] [address] CALCIUM IONIZED 4.10 mg/dL Low 4.30-5.20 [facility] Comment on above: Performed By: #### L [id number] ####Doughnut Dough Mixer: MARY SOTELO ([id number])[facility])[address] [place] [address] PH, IONIZED CALCIUM 7.51 High 7.31-7.46 [facility] Comment on above: Performed By: #### L [id number] ####Doughnut Dough Mixer: MARY SOTELO ([id number])[facility])[address] [place] [address] CBC WITH AUTO DIFFERENTIALon 07-29-2024 Basophils (Bld) [#/Vol] 0.0 10*3/uL Normal 0.0-0.2 [facility] Comment on above: Performed By: #### L [id number] ####Doughnut Dough Mixer: MARY SOTELO ([id number])[facility])[address] [place] [address] Basophils/100 WBC (Bld) 0.0 % Normal 0.0-2.0 [facility] Comment on above: Performed By: #### L [id number] ####Doughnut Dough Mixer: MARY SOTELO ([id number])[address] Eosinophils (Bld) [#/Vol] 0.0 10*3/uL Normal 0.0-0.5 [facility] Comment on above: Performed By: #### L [id number] ####Doughnut Dough Mixer: MARY [id number])[facility])[address] [place] [address] Eosinophils/100 WBC (Bld) 0.0 % Normal 0.0-6.0 [facility] Comment on above: Performed By: #### L [id number] ####Doughnut Dough Mixer: MARY SOTELO ([id number])[facility])[address] [place] [address] Erythrocyte distribution width (RBC) [Ratio] 15.2 % High 11.5-15.0 [facility] Comment on above: Performed By: #### L [id number] ####Doughnut Dough Mixer: MARY SOTELO ([id number])[facility])[address] [place] [address] Hematocrit (Bld) [Volume fraction] 23.1 % Low 35.0-47.0 [facility] Comment on above: Performed By: #### L [id number] ####Doughnut Dough Mixer: MARY SOTELO ([id number])[facility])[address] [place] [address] Hemoglobin (Bld) [Mass/Vol] 7.7 g/dL Low 11.7-16.0 [facility] Comment on above: Performed By: #### L [id number] ####Doughnut Dough Mixer: MARY SOTELO ([id number])[facility])[address] [place] [address] IMMATURE GRANS % 0.5 % Normal 0.0-2.0 [facility] Comment on above: Performed By: #### L [id number] ####Doughnut Dough Mixer: MARY SOTELO ([id number])[facility])[address] [place] [address] IMMATURE GRANS ABSOLUTE 0.0 10*3/uL Normal <0.1 [facility] Comment on above: Performed By: #### L [id number] ####Doughnut Dough Mixer: MARY SOTELO ([id number])[facility])[address] [place] [address] [place] Lymphocytes (Bld) [#/Vol] 0.5 10*3/uL Low 1.0-4.3 [facility] Comment on above: Performed By: #### L [id number] ####Doughnut Dough Mixer: MARY SOTELO ([id number])[facility])[address] [place] [address] Lymphocytes/100 WBC (Bld) 6.9 % Low 15.0-45.0 [facility] Comment on above: Performed By: #### L [id number] ####Doughnut Dough Mixer: MARY SOTELO ([id number])[facility])[address] [place] [address] MCH (RBC) [Entitic mass] 28.6 pg Normal 26.0-34.0 [facility] Comment on above: Performed By: #### L [id number] ####Doughnut Dough Mixer: MARY SOTELO ([id number])[facility])[address] [place] [address] MCHC 33.3 % Normal 30.5-36.0 [facility] Comment on above: Performed By: #### L [id number] ####Doughnut Dough Mixer: MARY SOTELO ([id number])[facility])[address] [place] [address] MCV (RBC) [Entitic vol] 85.9 fL Normal 77.0-99.0 [facility] Comment on above: Performed By: #### L [id number] ####Doughnut Dough Mixer: MARY SOTELO ([id number])[facility])[address] [place] [address] Monocytes (Bld) [#/Vol] 0.4 10*3/uL Normal 0.0-0.9 [facility] Comment on above: Performed By: #### L [id number] ####Doughnut Dough Mixer: MARY SOTELO ([id number])[facility])[address] [place] [address] Monocytes/100 WBC (Bld) 6.5 % Normal 5.0-13.0 [facility] Comment on above: Performed By: #### L [id number] ####Doughnut Dough Mixer: MARY SOTELO ([id number])[facility] ([facility])[address] [place] [address] NEUTROPHILS ABSOLUTE 5.6 10*3/uL Normal 1.8-7.5 [facility] Comment on above: Performed By: #### L [id number] ####Doughnut Dough Mixer: MARY SOTELO ([id number])[facility] ([facility])[address] [place] [address] Neutrophils/100 WBC (Bld) 86.1 % High 38.0-82.0 [facility] Comment on above: Performed By: #### L [id number] ####Doughnut Dough Mixer: MARY SOTELO ([id number])[facility])[address] [place] [address] NRBC 0.0 /100 WBCs Normal 0.0-2.0 [facility] Comment on above: Performed By: #### L [id number] ####Doughnut Dough Mixer: MARY SOTELO ([id number])[facility] ([facility])[address] [place] [address] Platelet mean volume (Bld) [Entitic vol] 11.0 fL Normal 9.0-12.7 [facility] Comment on above: Performed By: #### L [id number] ####Doughnut Dough Mixer: MARY SOTELO ([id number])[facility])[address] [place] [address] [place] Platelets (Bld) [#/Vol] 141 10*3/uL Normal 140-440 [facility] Comment on above: Performed By: #### L [id number] ####Doughnut Dough Mixer: MARY SOTELO ([id number])[facility])[address] [place] [address] RBC (Bld) [#/Vol] 2.69 10*6/uL Low 3.80-5.20 [facility] Comment on above: Performed By: #### L [id number] ####Doughnut Dough Mixer: MARY SOTELO ([id number])[facility] ([facility])[address] [place] [address] WBC (Bld) [#/Vol] 6.5 10*3/uL Normal 3.6-10.7 [facility] Comment on above: Performed By: #### L [id number] ####Doughnut Dough Mixer: MARY SOTELO ([id number])[facility])[address] [place] [address] CKon 07-29-2024 CK [Catalytic activity/Vol] 564 U/L High 30-170 [facility] Comment on above: Performed By: #### L AB19, LAB62 ####Doughnut Dough Mixer: MARY SOTELO ([id number])[facility])[address] [place] [address] ECG 12-LEADon 07-29-2024 ECG 12-LEAD IMPRESSION: Sinus rhythm Multiple ventricular premature complexes Anterior infarct, old Electronically Signed On 07-29-2024 20:06:11 EDT by Eladio Valle [facility] GLUCOSE, RANDOMon 07-29-2024 Glucose [Mass/Vol] 163 mg/dL High 70-100 [facility] Comment on above: Performed By: #### L [id number] ####Doughnut Dough Mixer: MARY SOTELO ([id number])[facility])[address] [place] [address] IDNon 07-29-2024 IDN Normal [facility] Nursing Noteon 07-29-2024 Nursing Note Patient returned fro m IR. Normal [facility] Nursing Note Normal [facility] Nursing Note To IR for tunneled v as cath. Normal [facility] Nursing Note Dr. Mahajan came by an d said EEG could be discontinued. Normal [facility] Nursing Note Called IR. Patient will get her tunneled catheter this afternoon. Normal [facility] Nursing Note Dr. Heath and tea philip here. They were notified of issues with vas cath. They will talk to Renal to decide what to do. Repostion line vs cath reol vs HD? Normal [facility] Nursing Note CRRT alarming extremely negative again. Blood returned. Set disposed. Vas cath lines flushed. Normal [facility] Nursing Note CRRT alarming extremely negative pressure. Lines clamped and disconnected. Vas cath ports flushed again. CRRT restarted. Normal [facility] Nursing Note CRRT alarming extremely negative. Lines clamped. Vas cath ports flushed. Red line still pulls back easier. Will keep return line attached to red port. Normal [facility] Nursing Note CRRT alarming extremely negative. Lines clamped. Vas cath ports flushed. Red port pulls back easier. Will attach return line to red port. CRRT restarted. Normal [facility] Nursing Note Cath roel removed fro m vas cath. Both ports flush easily but neither draw back easily. CRRT started. Normal [facility] Nursing Note CRRT paused d/t acce ss line clotting at approximately 6313-6840. Trouble shooting attempted. Cath flow ordered and given at 0646. Normal [facility] Progress Noteon 07-29-2024 Progress Note 07/29/24 1249 Wean Screen Safety Screen Spontaneous Breathing Trial (SBT - RT) (sedation not weaned or turned off) No SBT done. Normal [facility] Progress Note Normal [facility] Progress Note Normal [facility] Progress Note OCCUPATIONAL THERAPY [facility] Name/MRN: Sandy Deng ([id number]) Date: 07/29/2024 Pt remains on strict bed rest. Will continue to follow. Jamey Muro OT Normal [facility] Progress Note Normal [facility] Progress Note Normal [facility] Progress Note Normal [facility] RENAL FUNCTION PANELon 07-29 Albumin [Mass/Vol] 2.0 g/dL Low 3.5-5.0 [facility] Comment on above: Performed By: #### L [id number] ####Doughnut D[employer] Mixer: MARY SOTELO ([id number])[facility] ([facility])[address] [place] [address] Anion gap [Moles/Vol] 2 mmol/L Low 3-13 [facility] Comment on above: Performed By: #### L [id number] ####Doughnut D[employer] Mixer: MARY SOTELO ([id number])[facility] ([facility])[address] [place] [address] Calcium [Mass/Vol] 8.6 mg/dL Normal 8.4-10.4 [facility] Comment on above: Performed By: #### L [id number] ####Doughnut D[employer] Mixer: MARY SOTELO ([id number])[facility] [place] [address] Chloride [Moles/Vol] 106 mmol/L Normal 98-107 [facility] Comment on above: Performed By: #### L AB19 ####D[employer]nut D[employer] Mixer: MARY SOTELO ([id number])[facility])[address] [place] [address] CO2 [Moles/Vol] 26 mmol/L Normal 22-30 [facility] Comment on above: Performed By: #### L [id number] ####Doughnut Dough Mixer: MARY SOTELO ([id number])[facility] ([facility] [place] [address] Creatinine [Mass/Vol] 1.94 mg/dL High 0.52-1.04 [facility] Comment on above: Performed By: #### L [id number] ####Doughnut Dough Mixer: MARY SOTELO ([id number])[facility] ([facility])[address] [place] [address] GLOMERULAR FILTRATION RATE ML/MIN/1.73 SQ M.PREDICTED 28.5 mL/min/1.73m*2 Low >60.0 [facility] Comment on above: Result Comment: Calc ulation based on the Chronic Kidney Disease Epidemiology Collaboration (CKD-EPI) equation refit without adjustment for race Performed By: #### L [id number] ####Doughnut Dough Mixer: MARY SOTELO ([id number])[facility] ([facility])[address] [place] [address] Glucose [Mass/Vol] 33 mg/dL Critically low 70-100 [facility] Comment on above: Performed By: #### L [id number] ####Doughnut Dough Mixer: MARY SOTELO ([id number])[facility])[address] [place] [address] Phosphate [Mass/Vol] 4.4 mg/dL Normal 2.5-4.5 [facility] Comment on above: Performed By: #### L [id number] ####Doughnut Dough Mixer: MARY SOTELO ([id number])[facility] ([facility] [place] [address] Potassium [Moles/Vol] 5.0 mmol/L Normal 3.5-5.1 [facility] Comment on above: Performed By: #### L [id number] ####Doughnut Dough Mixer: MARY SOTELO ([id number])[facility] [place] [address] Sodium [Moles/Vol] 133 mmol/L Low 135-145 [facility] Comment on above: Performed By: #### L AB19 ####Doughnut Dough Mixer: MARY SOTELO ([id number])[facility] [place] [address] Urea nitrogen [Mass/Vol] 41 mg/dL High 7-17 [facility] Comment on above: Performed By: #### L AB19 ####Doughnut Dough Mixer: MARY SOTELO ([id number])[facility] ([facility])[address] [place] [address] Albumin [Mass/Vol] 1.9 g/dL Low 3.5-5.0 [facility] Comment on above: Performed By: #### L AB19, LAB62 ####Doughnut Dough Mixer: MARY SOTELO ([id number])[facility] [place] [address] [place] Anion gap [Moles/Vol] 2 mmol/L Low 3-13 [facility] Comment on above: Performed By: #### L AB19, LAB62 ####Doughnut Dough Mixer: MARY SOTELO ([id number])[facility] [place] [address] [place] Calcium [Mass/Vol] 7.6 mg/dL Low 8.4-10.4 [facility] Comment on above: Performed By: #### L AB19, LAB62 ####Doughnut Dough Mixer: MARY SOTELO ([id number])[facility] ([facility])[address] [place] [address] [place] Chloride [Moles/Vol] 104 mmol/L Normal 98-107 [facility] Comment on above: Performed By: #### L AB19, LAB62 ####Doughnut Dough Mixer: MARY SOTELO ([id number])[facility] ([facility])[address] [place] [address] [place] CO2 [Moles/Vol] 26 mmol/L Normal 22-30 [facility] Comment on above: Performed By: #### L AB19, LAB62 ####Doughnut Dough Mixer: MARY SOTELO ([id number])[facility] ([facility])[address] [place] [address] Creatinine [Mass/Vol] 1.59 mg/dL High 0.52-1.04 [facility] Comment on above: Performed By: #### L AB19, LAB62 ####Doughnut Dough Mixer: MARY SOTELO ([id number])[facility] ([facility])[address] [place] [address] [place] GLOMERULAR FILTRATION RATE ML/MIN/1.73 SQ M.PREDICTED 36.1 mL/min/1.73m*2 Low >60.0 [facility] Comment on above: Result Comment: Calc ulation based on the Chronic Kidney Disease Epidemiology Collaboration (CKD-EPI) equation refit without adjustment for race Performed By: #### L AB19, LAB62 ####Doughnut Dough Mixer: MARY SOTELO ([id number])[facility] ([facility])[address] [place] [address] [place] Glucose [Mass/Vol] 145 mg/dL High 70-100 [facility] Comment on above: Performed By: #### L AB19, LAB62 ####Doughnut Dough Mixer: MARY SOTELO ([id number])[facility] ([facility])[address] [place] [address] [place] Phosphate [Mass/Vol] 3.7 mg/dL Normal 2.5-4.5 [facility] Comment on above: Performed By: #### L AB19, LAB62 ####Doughnut Dough Mixer: MARY SOTELO ([id number])[facility] ([facility])[address] [place] [address] Potassium [Moles/Vol] 4.9 mmol/L Normal 3.5-5.1 [facility] Comment on above: Performed By: #### L AB19, LAB62 ####Doughnut Dough Mixer: MARY SOTELO ([id number])[facility] ([facility])[address] [place] [address] Sodium [Moles/Vol] 131 mmol/L Low 135-145 [facility] Comment on above: Performed By: #### L AB19, LAB62 ####Doughnut Dough Mixer: MARY SOTELO ([id number])[facility] ([facility])[address] [place] [address] Urea nitrogen [Mass/Vol] 35 mg/dL High 7-17 [facility] Comment on above: Performed By: #### L AB19, LAB62 ####Doughnut Dough Mixer: MARY SOTELO ([id number])[facility] ([facility])[address] [place] [address] Albumin [Mass/Vol] 2.0 g/dL Low 3.5-5.0 [facility] Comment on above: Performed By: #### L AB19 ####Doughnut Dough Mixer: MARY SOTELO ([id number])[facility] ([facility])[address] [place] [address] Anion gap [Moles/Vol] 1 mmol/L Low 3-13 [facility] Comment on above: Performed By: #### L AB19 ####Doughnut Dough Mixer: MARY SOTELO ([id number])[facility] ([facility])[address] [place] [address] Calcium [Mass/Vol] 7.5 mg/dL Low 8.4-10.4 [facility] Comment on above: Performed By: #### L AB19 ####Doughnut Dough Mixer: MARY SOTELO ([id number])[facility] ([facility])[address] [place] [address] Chloride [Moles/Vol] 104 mmol/L Normal 98-107 [facility] Comment on above: Performed By: #### L AB19 ####Doughnut Dough Mixer: MARY SOTELO ([id number])[facility] ([facility])[address] [place] [address] CO2 [Moles/Vol] 25 mmol/L Normal 22-30 [facility] Comment on above: Performed By: #### L AB19 ####Doughnut Dough Mixer: MARY SOTELO ([id number])[facility] ([facility])[address] [place] [address] Creatinine [Mass/Vol] 1.32 mg/dL High 0.52-1.04 [facility] Comment on above: Performed By: #### L AB19 ####Doughnut Dough Mixer: MARY SOTELO ([id number])[facility] ([facility])[address] [place] [address] GLOMERULAR FILTRATION RATE ML/MIN/1.73 SQ M.PREDICTED 45.2 mL/min/1.73m*2 Low >60.0 [facility] Comment on above: Result Comment: Calc ulation based on the Chronic Kidney Disease Epidemiology Collaboration (CKD-EPI) equation refit without adjustment for race Performed By: #### L AB19 ####Doughnut Dough Mixer: MARY SOTELO ([id number])[facility] ([facility])[address] [place] [address] [place] Glucose [Mass/Vol] 206 mg/dL High 70-100 [facility] Comment on above: Performed By: #### L AB19 ####Doughnut Dough Mixer: MARY SOTELO ([id number])[facility] ([facility])[address] [place] [address] [place] Phosphate [Mass/Vol] 3.2 mg/dL Normal 2.5-4.5 [facility] Comment on above: Performed By: #### L AB19 ####Doughnut Dough Mixer: MARY [id number])[facility] ([facility])[address] [place] [address] [place] Potassium [Moles/Vol] 5.2 mmol/L High 3.5-5.1 [facility] Comment on above: Performed By: #### L AB19 ####Doughnut Dough Mixer: MARY SOTELO ([id number])[facility] ([facility])[address] [place] [id number] [place] [address] Sodium [Moles/Vol] 131 mmol/L Low 135-145 [facility] Comment on above: Performed By: #### L AB19 ####Doughnut Dough Mixer: MARY SOTELO ([id number])[facility] [place] [address] Urea nitrogen [Mass/Vol] 28 mg/dL High 7-17 [facility] Comment on above: Performed By: #### L AB19 ####Doughnut Dough Mixer: MARY SOTELO ([id number])[facility] ([facility])[address] [place] [address] Respiratory Cultureon 2023 RESPC Normal [facility] Comment on above: Performed By: #### M 100.2400, M100.2000 ####[facility] [id number] [place], [address] XR CHEST 1 VIEWon 07-29-2024 XR CHEST 1 VIEW Normal [facility] BASIC METABOLIC PANELon 07-05 Anion gap [Moles/Vol] 4 mmol/L Normal 3-13 [facility] Comment on above: Performed By: #### L AB103, [id number], LAB15 ####Doughnut Dough Mixer: MARY SOTELO ([id number])[facility] [place] [address] Calcium [Mass/Vol] 7.4 mg/dL Low 8.4-10.4 [facility] Comment on above: Performed By: #### L AB103, [id number], LAB15 ####Doughnut Dough Mixer: MARY SOTELO ([id number])[facility] [place] [address] [place] Chloride [Moles/Vol] 104 mmol/L Normal 98-107 [facility] Comment on above: Performed By: #### L AB103, [id number], LAB15 ####Doughnut Dough Mixer: MARY SOTELO ([id number])[facility])[address] [place] [address] CO2 [Moles/Vol] 23 mmol/L Normal 22-30 [facility] Comment on above: Performed By: #### L AB103, [id number], LAB15 ####Doughnut Dough Mixer: MARY SOTELO ([id number])[facility])[address] [place] [address] Creatinine [Mass/Vol] 1.80 mg/dL High 0.52-1.04 [facility] Comment on above: Performed By: #### L AB103, [id number], LAB15 ####Doughnut Dough Mixer: MARY SOTELO ([id number])[facility])[address] [place] [address] GLOMERULAR FILTRATION RATE ML/MIN/1.73 SQ M.PREDICTED 31.1 mL/min/1.73m*2 Low >60.0 [facility] Comment on above: Result Comment: Calc ulation based on the Chronic Kidney Disease Epidemiology Collaboration (CKD-EPI) equation refit without adjustment for race Performed By: #### L AB103, [id number], LAB15 ####Doughnut Dough Mixer: MARY SOTELO ([id number])[facility] ([facility])[address] [place] [address] Glucose [Mass/Vol] 143 mg/dL High 70-100 [facility] Comment on above: Performed By: #### L AB103, [id number], LAB15 ####Doughnut Dough Mixer: MARY SOTELO ([id number])[facility])[address] [place] [address] Potassium [Moles/Vol] 4.5 mmol/L Normal 3.5-5.1 [facility] Comment on above: Performed By: #### L AB103, [id number], LAB15 ####Doughnut Dough Mixer: MARY STOELO ([id number])[facility])[address] [place] [address] Sodium [Moles/Vol] 131 mmol/L Low 135-145 [facility] Comment on above: Performed By: #### L AB103, [id number], LAB15 ####Doughnut Dough Mixer: MARY SOTELO ([id number])[facility] ([facility])[address] [place] [address] Urea nitrogen [Mass/Vol] 34 mg/dL High 7-17 [facility] Comment on above: Performed By: #### L AB103, [id number], LAB15 ####Doughnut Dough Mixer: MARY SOTELO ([id number])[facility] ([facility])[address] [place] [address] BLOOD GAS ARTERIALon 024 Base excess Calc (Bld) [Moles/Vol] -1.2000 mmol/L Normal -3.0-3.0 [facility] Comment on above: Performed By: #### L AB76 ####Doughnut Dough Mixer: MARY SOTELO ([id number])[facility] ([facility])[address] [place] [address] [place] CO2 [Moles/Vol] 24.6 mmol/L Normal 23.0-27.0 [facility] Comment on above: Performed By: #### L AB76 ####Doughnut Dough Mixer: MARY SOTELO ([id number])[facility] ([facility])[address] [place] [address] [place] HCO3 (Bld) [Moles/Vol] 23.4 mmol/L Normal 21.0-25.0 [facility] Comment on above: Performed By: #### L AB76 ####Doughnut Dough Mixer: MARY SOTELO ([id number])[facility] ([facility])[address] [place] [address] Hemoglobin (Bld) [Mass/Vol] 9.2 g/dL Normal Screen only [facility] Comment on above: Performed By: #### L AB76 ####Doughnut Dough Mixer: MARY SOTELO ([id number])[facility])[address] [place] [address] OXYGEN SATURATION (%) IN ARTERIAL BLOOD 98.1 % Normal 95.0-100.0 [facility] Comment on above: Performed By: #### L AB76 ####Doughnut Dough Mixer: MARY SOTELO ([id number])[facility] ([facility])[address] [place] [address] PCO2 ARTERIAL 38.6 mm Hg Normal >35.0-<45.0 [facility] Comment on above: Performed By: #### L AB76 ####Doughnut Dough Mixer: MARY SOTELO ([id number])[facility] ([facility])[address] [place] [address] PH ARTERIAL 7.401 Normal 7.350-7.450 [facility] Comment on above: Performed By: #### L AB76 ####Doughnut Dough Mixer: MARY SOTELO ([id number])[facility] ([facility])[address] [place] [address] PO2 ARTERIAL 120.0 mm Hg High 80.0-100.0 [facility] Comment on above: Performed By: #### L AB76 ####Doughnut Dough Mixer: MARY SOTELO ([id number])[facility] ([facility])[address] [place] [address] SOURCE OF OXYGEN Vent Normal [facility] Comment on above: Performed By: #### L [id number] ####Doughnut Dough Mixer: MARY SOTELO ([id number])[facility] ([facility])[address] [place] [address] CALCIUM, IONIZEDon 4 CALCIUM IONIZED 4.10 mg/dL Low 4.30-5.20 [facility] Comment on above: Performed By: #### L AB54 ####Doughnut Dough Mixer: MARY SOTELO ([id number])[facility] ([facility])[address] [place] [address] PH, IONIZED CALCIUM 7.52 High 7.31-7.46 [facility] Comment on above: Performed By: #### L AB54 ####Doughnut Dough Mixer: MARY SOTELO ([id number])[facility])[address] [place] [address] CALCIUM IONIZED 4.30 mg/dL Normal 4.30-5.20 [facility] Comment on above: Performed By: #### L AB54 ####Doughnut Dough Mixer: MARY SOTELO ([id number])[facility] ([facility])[address] [place] [address] PH, IONIZED CALCIUM 7.46 Normal 7.31-7.46 [facility] Comment on above: Performed By: #### L AB54 ####Doughnut Dough Mixer: MARY SOTELO ([id number])[facility])[address] [place] [address] CALCIUM IONIZED 4.20 mg/dL Low 4.30-5.20 [facility] Comment on above: Performed By: #### L AB54 ####Doughnut Dough Mixer: MARY SOTELO ([id number])[facility] ([facility])[address] [place] [address] PH, IONIZED CALCIUM 7.38 Normal 7.31-7.46 [facility] Comment on above: Performed By: #### L AB54 ####Doughnut Dough Mixer: MARY SOTELO ([id number])[facility])[address] [place] [address] CALCIUM IONIZED 4.10 mg/dL Low 4.30-5.20 [facility] Comment on above: Performed By: #### L AB54 ####Doughnut Dough Mixer: MARY SOTELO ([id number])[facility])[address] [place] [address] PH, IONIZED CALCIUM 7.44 Normal 7.31-7.46 [facility] Comment on above: Performed By: #### L AB54 ####Doughnut Dough Mixer: MARY SOTELO ([id number])[facility])[address] [place] [address] [place] CARECOORDon 07-28-2024 CARECOORD Normal [facility] CBC WITH AUTO DIFFERENTIALon 07-28-2024 Basophils (Bld) [#/Vol] 0.0 10*3/uL Normal 0.0-0.2 [facility] Comment on above: Performed By: #### L [id number] ####Doughnut Dough Mixer: MARY SOTELO ([id number])[facility])[address] [place] [address] Basophils/100 WBC (Bld) 0.1 % Normal 0.0-2.0 [facility] Comment on above: Performed By: #### L [id number] ####Doughnut Dough Mixer: MARY SOTELO ([id number])[facility])[address] [place] [address] Eosinophils (Bld) [#/Vol] 0.0 10*3/uL Normal 0.0-0.5 [facility] Comment on above: Performed By: #### L [id number] ####Doughnut Dough Mixer: MARY SOTELO ([id number])[facility])[address] [place] [address] Eosinophils/100 WBC (Bld) 0.0 % Normal 0.0-6.0 [facility] Comment on above: Performed By: #### L [id number] ####Doughnut Dough Mixer: MARY SOTELO ([id number])[facility])[address] [place] [address] Erythrocyte distribution width (RBC) [Ratio] 15.0 % Normal 11.5-15.0 [facility] Comment on above: Performed By: #### L [id number] ####Doughnut Dough Mixer: MARY SOTELO ([id number])[facility])[address] [place] [address] Hematocrit (Bld) [Volume fraction] 25.8 % Low 35.0-47.0 [facility] Comment on above: Performed By: #### L [id number] ####Doughnut Dough Mixer: MARY SOTELO ([id number])[facility])[address] [place] [address] Hemoglobin (Bld) [Mass/Vol] 8.8 g/dL Low 11.7-16.0 [facility] Comment on above: Performed By: #### L [id number] ####Doughnut Dough Mixer: MARY SOTELO ([id number])[facility])[address] [place] [address] IMMATURE GRANS % 0.4 % Normal 0.0-2.0 [facility] Comment on above: Performed By: #### L [id number] ####Doughnut Dough Mixer: MARY SOTELO ([id number])[facility])[address] [place] [address] IMMATURE GRANS ABSOLUTE 0.1 10*3/uL High <0.1 [facility] Comment on above: Performed By: #### L [id number] ####Doughnut Dough Mixer: MARY SOTELO ([id number])[address] Lymphocytes (Bld) [#/Vol] 0.3 10*3/uL Low 1.0-4.3 [facility] Comment on above: Performed By: #### L [id number] ####Doughnut Dough Mixer: MARY SOTELO ([id number])[facility])[address] [place] [address] Lymphocytes/100 WBC (Bld) 2.9 % Low 15.0-45.0 [facility] Comment on above: Performed By: #### L [id number] ####Doughnut Dough Mixer: MARY SOTELO ([id number])[facility])[address] [place] [address] MCH (RBC) [Entitic mass] 28.9 pg Normal 26.0-34.0 [facility] Comment on above: Performed By: #### L [id number] ####Doughnut Dough Mixer: MARY SOTELO ([id number])[address] MCHC 34.1 % Normal 30.5-36.0 [facility] Comment on above: Performed By: #### L [id number] ####Doughnut Dough Mixer: MARY SOTELO ([id number])[facility] ([facility])[address] [place] [address] MCV (RBC) [Entitic vol] 84.6 fL Normal 77.0-99.0 [facility] Comment on above: Performed By: #### L [id number] ####Doughnut Dough Mixer: MARY SOTELO ([id number])[facility])[address] [place] [address] Monocytes (Bld) [#/Vol] 0.4 10*3/uL Normal 0.0-0.9 [facility] Comment on above: Performed By: #### L [id number] ####Doughnut Dough Mixer: MARY SOTELO ([id number])[facility])[address] [place] [address] Monocytes/100 WBC (Bld) 3.6 % Low 5.0-13.0 [facility] Comment on above: Performed By: #### L [id number] ####Doughnut Dough Mixer: MARY SOTELO ([id number])[facility] ([facility])[address] [place] [address] NEUTROPHILS ABSOLUTE 10.7 10*3/uL High 1.8-7.5 [facility] Comment on above: Performed By: #### L [id number] ####Doughnut Dough Mixer: MARY SOTELO ([id number])[facility])[address] [place] [address] Neutrophils/100 WBC (Bld) 93.0 % High 38.0-82.0 [facility] Comment on above: Performed By: #### L [id number] ####Doughnut Dough Mixer: MARY SOTELO ([id number])[facility] ([facility])[address] [place] [address] NRBC 0.0 /100 WBCs Normal 0.0-2.0 [facility] Comment on above: Performed By: #### L [id number] ####Doughnut Dough Mixer: MARY SOTELO ([id number])[facility] ([facility])[address] [place] [address] Platelet mean volume (Bld) [Entitic vol] 10.5 fL Normal 9.0-12.7 [facility] Comment on above: Performed By: #### L [id number] ####Doughnut D[employer] Mixer: MARY SOTELO ([id number])[facility] ([facility])[address] [place] [address] Platelets (Bld) [#/Vol] 160 10*3/uL Normal 140-440 [facility] Comment on above: Performed By: #### L [id number] ####Doughnut D[employer] Mixer: MARY SOTELO ([id number])[facility] ([facility])[address] [place] [address] RBC (Bld) [#/Vol] 3.05 10*6/uL Low 3.80-5.20 [facility] Comment on above: Performed By: #### L [id number] ####D[employer]nut D[employer] Mixer: MARY SOTELO ([id number])[facility] ([facility])[address] [place] [address] WBC (Bld) [#/Vol] 11.5 10*3/uL High 3.6-10.7 [facility] Comment on above: Performed By: #### L [id number] ####Doughnut Dough Mixer: MARY SOTELO ([id number])[facility])[address] [place] [address] COMPREHENSIVE METABOLIC PANE [place] 07-28-2024 Albumin [Mass/Vol] 2.2 g/dL Low 3.5-5.0 [facility] Comment on above: Performed By: #### L AB103, [id number], LAB17 ####Doughnut D[employer] Mixer: MARY SOTELO ([id number])[facility] ([facility])[address] [place] [address] ALP [Catalytic activity/Vol] 78 U/L Normal 38-126 [facility] Comment on above: Performed By: #### L AB103, [id number], LAB17 ####Doughnut Dough Mixer: MARY SOTELO ([id number])[facility] ([facility])[address] [place] [address] ALT [Catalytic activity/Vol] 23 U/L Normal 0-34 [facility] Comment on above: Performed By: #### L AB103, [id number], LAB17 ####Doughnut Dough Mixer: MARY SOTELO ([id number])[facility] ([facility])[address] [place] [address] Anion gap [Moles/Vol] 4 mmol/L Normal 3-13 [facility] Comment on above: Performed By: #### L AB103, [id number], LAB17 ####Doughnut Dough Mixer: MARY SOTELO ([id number])[facility] ([facility])[address] [place] [address] AST [Catalytic activity/Vol] 44 U/L Normal 15-46 [facility] Comment on above: Performed By: #### Dora AB103, [id number], LAB17 ####Doughnut Dough Mixer: MARY SOTELO ([id number])[facility] ([facility])[address] [place] [address] Bilirubin [Mass/Vol] 0.5 mg/dL Normal 0.2-1.3 [facility] Comment on above: Performed By: #### Dora AB103, [id number], LAB17 ####Doughnut Dough Mixer: MARY SOTELO ([id number])[facility] ([facility])[address] [place] [address] Calcium [Mass/Vol] 7.3 mg/dL Low 8.4-10.4 [facility] Comment on above: Performed By: #### L AB103, [id number], LAB17 ####Doughnut Dough Mixer: MARY SOTELO ([id number])[facility] ([facility])[address] [place] [address] [place] Chloride [Moles/Vol] 102 mmol/L Normal 98-107 [facility] Comment on above: Performed By: #### L AB103, [id number], LAB17 ####Doughnut Dough Mixer: MARY SOTELO ([id number])[facility] ([facility])[address] [place] [address] [place] CO2 [Moles/Vol] 24 mmol/L Normal 22-30 [facility] Comment on above: Performed By: #### L AB103, [id number], LAB17 ####Doughnut Dough Mixer: MARY SOTELO ([id number])[facility])[address] [place] [address] Creatinine [Mass/Vol] 1.50 mg/dL High 0.52-1.04 [facility] Comment on above: Performed By: #### L AB103, [id number], LAB17 ####Doughnut Dough Mixer: MARY SOTELO ([id number])[facility])[address] [place] [address] GLOMERULAR FILTRATION RATE ML/MIN/1.73 SQ M.PREDICTED 38.8 mL/min/1.73m*2 Low >60.0 [facility] Comment on above: Result Comment: Calc ulation based on the Chronic Kidney Disease Epidemiology Collaboration (CKD-EPI) equation refit without adjustment for race Performed By: #### Dora ABErika, [id number], LAB17 ####Doughnut Dough Mixer: MARY SOTELO ([id number])[facility] ([facility])[address] [place] [address] Glucose [Mass/Vol] 149 mg/dL High 70-100 [facility] Comment on above: Performed By: #### Dora AB103, [id number], LAB17 ####Doughnut Dough Mixer: MARY SOTELO ([id number])[facility])[address] [place] [address] Potassium [Moles/Vol] 4.5 mmol/L Normal 3.5-5.1 [facility] Comment on above: Performed By: #### L AB103, [id number], LAB17 ####Doughnut Dough Mixer: MARY SOTELO ([id number])[facility])[address] [place] [address] Protein [Mass/Vol] 4.6 g/dL Low 6.3-8.2 [facility] Comment on above: Performed By: #### L AB103, [id number], LAB17 ####Doughnut Dough Mixer: MARY SOTELO ([id number])[facility])[address] [place] [address] [place] Sodium [Moles/Vol] 130 mmol/L Low 135-145 [facility] Comment on above: Performed By: #### L AB103, [id number], LAB17 ####Doughnut Dough Mixer: MARY SOTELO ([id number])[facility])[address] [place] [address] Urea nitrogen [Mass/Vol] 31 mg/dL High 7-17 [facility] Comment on above: Performed By: #### L AB103, [id number], LAB17 ####Doughnut Dough Mixer: MARY SOTELO ([id number])[facility])[address] [place] [address] Consulton 07-28-2024 Consult Normal [facility] ECG 12-LEADon 07-28-2024 ECG 12-LEAD IMPRESSION: Sinus rhythm Multiple ventricular premature complexes Anterior infarct, old Borderline T abnormalities Electronically Signed On 07-28-2024 12:41:46 EDT by Keisha Acosta Normal [facility] IDNon 07-28-2024 IDAnia Normal [facility] MAGNESIUMon 07-28-2024 Magnesium [Mass/Vol] 2.7 mg/dL High 1.6-2.3 [facility] Comment on above: Performed By: #### L AB103, [id number], LAB17 ####Doughnut Dough Mixer: MARY SOTELO ([id number])[facility])[address] [place] [address] Magnesium [Mass/Vol] 2.2 mg/dL Normal 1.6-2.3 [facility] Comment on above: Performed By: #### L AB103, [id number], LAB15 ####Doughnut Dough Mixer: MARY SOTELO ([id number])[facility] ([facility])[address] [place] [address] PHOSPHORUSon 07-28-2024 Phosphate [Mass/Vol] 3.5 mg/dL Normal 2.5-4.5 [facility] Comment on above: Performed By: #### L AB103, [id number], LAB17 ####Doughnut Dough Mixer: MARY SOTELO ([id number])[facility] ([facility])[address] [place] [address] Phosphate [Mass/Vol] 3.6 mg/dL Normal 2.5-4.5 [facility] Comment on above: Performed By: #### L AB103, [id number], LAB15 ####Doughnut Dough Mixer: MARY SOTELO ([id number])[facility] [place] [address] Progress Noteon 07-28-2024 Progress Note Normal [facility] Progress Note Normal [facility] Progress Note Normal [facility] Progress Note Normal [facility] RENAL FUNCTION PANELon 07-28 Albumin [Mass/Vol] 2.2 g/dL Low 3.5-5.0 [facility] Comment on above: Performed By: #### L AB19 ####Doughnut Dough Mixer: MARY SOTELO ([id number])[facility] [place] [address] Anion gap [Moles/Vol] 0 mmol/L Low 3-13 [facility] Comment on above: Performed By: #### L AB19 ####Doughnut Dough Mixer: MARY SOTELO ([id number])[facility] ([facility])[address] [place] [address] Calcium [Mass/Vol] 7.4 mg/dL Low 8.4-10.4 [facility] Comment on above: Performed By: #### L AB19 ####Doughnut Dough Mixer: MARY SOTELO ([id number])[facility] ([facility])[address] [place] [address] Chloride [Moles/Vol] 104 mmol/L Normal 98-107 [facility] Comment on above: Performed By: #### L AB19 ####Doughnut Dough Mixer: MARY SOTELO ([id number])[facility] ([facility])[address] [place] [address] CO2 [Moles/Vol] 26 mmol/L Normal 22-30 [facility] Comment on above: Performed By: #### L AB19 ####Doughnut Dough Mixer: MARY SOTELO ([id number])[facility])[address] [place] [address] Creatinine [Mass/Vol] 1.26 mg/dL High 0.52-1.04 [facility] Comment on above: Performed By: #### L AB19 ####Doughnut Dough Mixer: MARY SOTELO ([id number])[facility])[address] [place] [address] GLOMERULAR FILTRATION RATE ML/MIN/1.73 SQ M.PREDICTED 47.8 mL/min/1.73m*2 Low >60.0 [facility] Comment on above: Result Comment: Calc ulation based on the Chronic Kidney Disease Epidemiology Collaboration (CKD-EPI) equation refit without adjustment for race Performed By: #### L AB19 ####Doughnut Dough Mixer: MARY SOTELO ([id number])[facility] ([facility])[address] [place] [address] Glucose [Mass/Vol] 123 mg/dL High 70-100 [facility] Comment on above: Performed By: #### L AB19 ####Doughnut Dough Mixer: MARY SOTELO ([id number])[facility] ([facility])[address] [place] [address] Phosphate [Mass/Vol] 2.4 mg/dL Low 2.5-4.5 [facility] Comment on above: Performed By: #### L AB19 ####Doughnut Dough Mixer: MARY SOTELO ([id number])[facility])[address] [place] [address] [place] Potassium [Moles/Vol] 4.6 mmol/L Normal 3.5-5.1 [facility] Comment on above: Performed By: #### L AB19 ####Doughnut Dough Mixer: MARY SOTELO ([id number])[facility] ([facility])[address] [place] [address] Sodium [Moles/Vol] 130 mmol/L Low 135-145 [facility] Comment on above: Performed By: #### L AB19 ####Doughnut Dough Mixer: MARY SOTELO ([id number])[facility])[address] [place] [address] Urea nitrogen [Mass/Vol] 28 mg/dL High 7-17 [facility] Comment on above: Performed By: #### L AB19 ####Doughnut Dough Mixer: MARY SOTELO ([id number])[facility] ([facility])[address] [place] [address] Albumin [Mass/Vol] 2.1 g/dL Low 3.5-5.0 [facility] Comment on above: Performed By: #### L AB19 ####Doughnut Dough Mixer: MARY SOTELO ([id number])[facility] ([facility])[address] [place] [address] Anion gap [Moles/Vol] 3 mmol/L Normal 3-13 [facility] Comment on above: Performed By: #### L AB19 ####Doughnut Dough Mixer: MARY SOETLO ([id number])[facility] ([facility])[address] [place] [address] Calcium [Mass/Vol] 7.8 mg/dL Low 8.4-10.4 [facility] Comment on above: Performed By: #### L AB19 ####Doughnut Dough Mixer: MARY SOTELO ([id number])[facility] ([facility])[address] [place] [address] Chloride [Moles/Vol] 103 mmol/L Normal 98-107 [facility] Comment on above: Performed By: #### L AB19 ####Doughnut Dough Mixer: MARY SOTELO ([id number])[facility] ([facility])[address] [place] [address] [place] CO2 [Moles/Vol] 26 mmol/L Normal 22-30 [facility] Comment on above: Performed By: #### L AB19 ####Doughnut Dough Mixer: MARY SOTELO ([id number])[facility] ([facility])[address] [place] [address] Creatinine [Mass/Vol] 1.33 mg/dL High 0.52-1.04 [facility] Comment on above: Performed By: #### L AB19 ####Doughnut Dough Mixer: MARY SOTELO ([id number])[facility] ([facility])[address] [place] [address] [place] GLOMERULAR FILTRATION RATE ML/MIN/1.73 SQ M.PREDICTED 44.8 mL/min/1.73m*2 Low >60.0 [facility] Comment on above: Result Comment: Calc ulation based on the Chronic Kidney Disease Epidemiology Collaboration (CKD-EPI) equation refit without adjustment for race Performed By: #### L AB19 ####Doughnut Dough Mixer: MARY SOTELO ([id number])[facility] ([facility])[address] [place] [address] Glucose [Mass/Vol] 139 mg/dL High 70-100 [facility] Comment on above: Performed By: #### L AB19 ####Doughnut Dough Mixer: MARY OSTELO ([id number])[facility] ([facility])[address] [place] [address] Phosphate [Mass/Vol] 2.7 mg/dL Normal 2.5-4.5 [facility] Comment on above: Performed By: #### L AB19 ####Doughnut Dough Mixer: MARY SOTELO ([id number])[facility] ([facility])[address] [place] [address] [place] Potassium [Moles/Vol] 4.2 mmol/L Normal 3.5-5.1 [facility] Comment on above: Performed By: #### L AB19 ####Doughnut Dough Mixer: MARY SOTELO ([id number])[facility])[address] [place] [address] [place] Sodium [Moles/Vol] 131 mmol/L Low 135-145 [facility] Comment on above: Performed By: #### L AB19 ####Doughnut Dough Mixer: MARY SOTELO ([id number])[facility])[address] [place] [address] [place] Urea nitrogen [Mass/Vol] 30 mg/dL High 7-17 [facility] Comment on above: Performed By: #### L AB19 ####Doughnut Dough Mixer: MARY SOTELO ([id number])[facility])[address] [place] [address] [place] XR CHEST 1 VIEWon 07-28-2024 XR CHEST 1 VIEW Normal [facility] BASIC METABOLIC PANELon 07-05 Anion gap [Moles/Vol] 6 mmol/L Normal 3-13 [facility] Comment on above: Performed By: #### L AB103, LAB15 ####Doughnut Dough Mixer: MARY SOTELO ([id number])[facility] ([facility])[address] [place] [address] Calcium [Mass/Vol] 7.3 mg/dL Low 8.4-10.4 [facility] Comment on above: Performed By: #### L AB103, LAB15 ####Doughnut Dough Mixer: MARY SOTELO ([id number])[facility] ([facility])[address] [place] [address] Chloride [Moles/Vol] 102 mmol/L Normal 98-107 [facility] Comment on above: Performed By: #### L AB103, LAB15 ####Doughnut Dough Mixer: MARY SOTELO ([id number])[facility] ([facility])[address] [place] [address] CO2 [Moles/Vol] 24 mmol/L Normal 22-30 [facility] Comment on above: Performed By: #### L AB103, LAB15 ####Doughnut Dough Mixer: MARY SOTELO ([id number])[facility] ([facility])[address] [place] [address] Creatinine [Mass/Vol] 2.18 mg/dL High 0.52-1.04 [facility] Comment on above: Performed By: #### L AB103, LAB15 ####Doughnut Dough Mixer: MARY SOTELO ([id number])[facility])[address] [place] [address] GLOMERULAR FILTRATION RATE ML/MIN/1.73 SQ M.PREDICTED 24.7 mL/min/1.73m*2 Low >60.0 [facility] Comment on above: Result Comment: Calc ulation based on the Chronic Kidney Disease Epidemiology Collaboration (CKD-EPI) equation refit without adjustment for race Performed By: #### L AB103, LAB15 ####Doughnut Dough Mixer: MARY SOTELO ([id number])[facility])[address] [place] [address] Glucose [Mass/Vol] 87 mg/dL Normal 70-100 [facility] Comment on above: Performed By: #### L AB103, LAB15 ####Doughnut Dough Mixer: MARY SOTELO ([id number])[facility] ([facility])[address] [place] [address] Potassium [Moles/Vol] 3.6 mmol/L Normal 3.5-5.1 [facility] Comment on above: Performed By: #### L AB103, LAB15 ####Doughnut Dough Mixer: MARY SOTELO ([id number])[facility] ([facility])[address] [place] [address] Sodium [Moles/Vol] 131 mmol/L Low 135-145 [facility] Comment on above: Performed By: #### L AB103, LAB15 ####Doughnut Dough Mixer: MARY SOTELO ([id number])[facility])[address] [place] [address] Urea nitrogen [Mass/Vol] 41 mg/dL High 7-17 [facility] Comment on above: Performed By: #### L AB103, LAB15 ####Doughnut Dough Mixer: MARY SOTELO ([id number])[facility])[address] [place] [address] BLOOD GAS ARTERIALon 024 Base excess Calc (Bld) [Moles/Vol] 0.4 mmol/L Normal -3.0-3.0 [facility] Comment on above: Performed By: #### L AB76 ####Doughnut Dough Mixer: MARY SOTELO ([id number])[facility])[address] [place] [address] CO2 [Moles/Vol] 26.5 mmol/L Normal 23.0-27.0 [facility] Comment on above: Performed By: #### L AB76 ####Doughnut Dough Mixer: MARY SOTELO ([id number])[facility] ([facility])[address] [place] [address] HCO3 (Bld) [Moles/Vol] 25.3 mmol/L High 21.0-25.0 [facility] Comment on above: Performed By: #### L AB76 ####Doughnut Dough Mixer: MARY SOTELO ([id number])[facility] ([facility])[address] [place] [address] Hemoglobin (Bld) [Mass/Vol] 8.9 g/dL Normal Screen only [facility] Comment on above: Performed By: #### L AB76 ####Doughnut Dough Mixer: MARY SOTELO ([id number])[facility] ([facility])[address] [place] [address] OXYGEN SATURATION (%) IN ARTERIAL BLOOD 97.1 % Normal 95.0-100.0 [facility] Comment on above: Performed By: #### L AB76 ####Doughnut Dough Mixer: MARY SOTELO ([id number])[facility] ([facility])[address] [place] [address] PCO2 ARTERIAL 41.9 mm Hg Normal >35.0-<45.0 [facility] Comment on above: Performed By: #### L AB76 ####Doughnut Dough Mixer: MARY SOTELO ([id number])[facility] ([facility])[address] [place] [address] PH ARTERIAL 7.398 Normal 7.350-7.450 [facility] Comment on above: Performed By: #### L AB76 ####Doughnut Dough Mixer: MARY SOTELO ([id number])[facility] ([facility])[address] [place] [address] PO2 ARTERIAL 100.1 mm Hg High 80.0-100.0 [facility] Comment on above: Performed By: #### L AB76 ####Doughnut Dough Mixer: MARY SOTELO ([id number])[facility] ([facility])[address] [place] [address] SOURCE OF OXYGEN 30% Oxygen Normal [facility] Comment on above: Result Comment: vent Performed By: #### L AB76 ####Doughnut Dough Mixer: MARY SOTELO ([id number])[facility] ([facility])[address] [place] [address] Base excess Calc (Bld) [Moles/Vol] -2.5000 mmol/L Normal -3.0-3.0 [facility] Comment on above: Order Comment: 30 mi n after vent changes Performed By: #### L AB76 ####Doughnut Dough Mixer: MARY SOTELO ([id number])[facility] ([facility])[address] [place] [address] CO2 [Moles/Vol] 26.0 mmol/L Normal 23.0-27.0 [facility] Comment on above: Order Comment: 30 mi n after vent changes Performed By: #### L AB76 ####Doughnut Dough Mixer: MARY SOTELO ([id number])[facility] ([facility])[address] [place] [address] HCO3 (Bld) [Moles/Vol] 24.4 mmol/L Normal 21.0-25.0 [facility] Comment on above: Order Comment: 30 mi n after vent changes Performed By: #### L AB76 ####Doughnut Dough Mixer: MARY SOTELO ([id number])[facility] ([facility])[address] [place] [address] Hemoglobin (Bld) [Mass/Vol] 9.3 g/dL Normal Screen only [facility] Comment on above: Order Comment: 30 mi n after vent changes Performed By: #### L AB76 ####Doughnut Dough Mixer: MARY SOTELO ([id number])[facility] ([facility])[address] [place] [address] OXYGEN SATURATION (%) IN ARTERIAL BLOOD 97.1 % Normal 95.0-100.0 [facility] Comment on above: Order Comment: 30 mi n after vent changes Performed By: #### L AB76 ####Doughnut Dough Mixer: MARY SOTELO ([id number])[facility] ([facility])[address] [place] [address] PCO2 ARTERIAL 52.3 mm Hg High >35.0-<45.0 [facility] Comment on above: Order Comment: 30 mi n after vent changes Performed By: #### L AB76 ####Doughnut Dough Mixer: MARY SOTELO ([id number])[facility] ([facility])[address] [place] [address] PH ARTERIAL 7.286 Low 7.350-7.450 [facility] Comment on above: Order Comment: 30 mi n after vent changes Performed By: #### L AB76 ####Doughnut Dough Mixer: MARY SOTELO ([id number])[facility] ([facility])[address] [place] [address] PO2 ARTERIAL 115.1 mm Hg High 80.0-100.0 [facility] Comment on above: Order Comment: 30 mi n after vent changes Performed By: #### L AB76 ####Doughnut Dough Mixer: MARY SOTELO ([id number])[facility] ([facility])[address] [place] [address] SOURCE OF OXYGEN 30% Oxygen Normal [facility] Comment on above: Order Comment: 30 mi n after vent changes Result Comment: vent Performed By: #### L AB76 ####Doughnut Dough Mixer: MARY SOTELO ([id number])[facility] ([facility])[address] [place] [address] Base excess Calc (Bld) [Moles/Vol] -6.7000 mmol/L Low -3.0-3.0 [facility] Comment on above: Performed By: #### L AB76 ####Doughnut Dough Mixer: MARY SOTELO ([id number])[facility] ([facility])[address] [place] [address] CO2 [Moles/Vol] 22.8 mmol/L Low 23.0-27.0 [facility] Comment on above: Performed By: #### L AB76 ####Doughnut Dough Mixer: MARY SOTELO ([id number])[facility] ([facility])[address] [place] [address] HCO3 (Bld) [Moles/Vol] 21.1 mmol/L Normal 21.0-25.0 [facility] Comment on above: Performed By: #### L AB76 ####Doughnut Dough Mixer: MARY SOTELO ([id number])[facility] ([facility])[address] [place] [address] Hemoglobin (Bld) [Mass/Vol] 9.9 g/dL Normal Screen only [facility] Comment on above: Performed By: #### L AB76 ####Doughnut Dough Mixer: MARY SOTELO ([id number])[facility] ([facility])[address] [place] [address] OXYGEN SATURATION (%) IN ARTERIAL BLOOD 96.9 % Normal 95.0-100.0 [facility] Comment on above: Performed By: #### L AB76 ####Doughnut Dough Mixer: MARY SOTELO ([id number])[facility] ([facility])[address] [place] [address] PCO2 ARTERIAL 53.5 mm Hg High >35.0-<45.0 [facility] Comment on above: Performed By: #### L AB76 ####Doughnut Dough Mixer: MARY SOTELO ([id number])[facility] ([facility])[address] [place] [address] PH ARTERIAL 7.214 Low 7.350-7.450 [facility] Comment on above: Performed By: #### L AB76 ####Doughnut Dough Mixer: MARY SOTELO ([id number])[facility] ([facility])[address] [place] [address] PO2 ARTERIAL 108.9 mm Hg High 80.0-100.0 [facility] Comment on above: Performed By: #### L AB76 ####Doughnut Dough Mixer: MARY SOTELO ([id number])[facility] ([facility])[address] [place] [address] SOURCE OF OXYGEN Vent Normal [facility] Comment on above: Performed By: #### L AB76 ####Doughnut Dough Mixer: MARY SOTELO ([id number])[facility] ([facility])[address] [place] [address] [place] C3, BLOODon 07-27-2024 C3, BLOOD 56 mg/dL Low 88-165 [facility] Comment on above: Performed By: #### L AB152, [id number] ####[employer]: MARLENY GUZMÁN ([id number])YAHAIRA LUDWIG ([facility])[address] [place] [address] [place] C4 COMPLEMENTon 07-27-2024 C4, BLOOD 10 mg/dL Low 14-44 [facility] Comment on above: Performed By: #### L AB152, [id number] ####Doughnut Dough Mixer: MARLENY GUZMÁN ([id number])[facility]Frank ADENAnia ([facility])[address] [place] [address] CALCIUM, IONIZEDon 4 CALCIUM IONIZED 4.00 mg/dL Low 4.30-5.20 [facility] Comment on above: Performed By: #### L AB54 ####Doughnut Dough Mixer: MARY SOTELO ([id number])[facility] ([facility] [place] [address] [place] PH, IONIZED CALCIUM 7.50 High 7.31-7.46 [facility] Comment on above: Performed By: #### L AB54 ####Doughnut Dough Mixer: MARY SOTELO ([id number])[facility] [place] [address] [place] CALCIUM IONIZED 4.20 mg/dL Low 4.30-5.20 [facility] Comment on above: Performed By: #### L AB54 ####Doughnut Dough Mixer: MARY SOTELO ([id number])[facility] ([facility])[address] [place] [address] [place] PH, IONIZED CALCIUM 7.32 Normal 7.31-7.46 [facility] Comment on above: Performed By: #### L [id number] ####Doughnut Dough Mixer: MARY SOTELO ([id number])[facility] ([facility])[address] [place] [address] [place] CALCIUM IONIZED 3.70 mg/dL Low 4.30-5.20 [facility] Comment on above: Performed By: #### L [id number] ####Doughnut Dough Mixer: MARY SOTELO ([id number])[facility])[address] [place] [address] PH, IONIZED CALCIUM 7.22 Low 7.31-7.46 [facility] Comment on above: Performed By: #### L [id number] ####Doughnut Dough Mixer: MARY SOTELO ([id number])[facility])[address] [place] [address] CARECOORDon 07-27-2024 [place] Normal [facility] CBC WITH AUTO DIFFERENTIALon 07-27-2024 Erythrocyte distribution width (RBC) [Ratio] 15.3 % High 11.5-15.0 [facility] Comment on above: Performed By: #### L [id number], [id number] ####Doughnut Dough Mixer: MARY SOTELO ([id number])[facility])[address] [place] [address] Hematocrit (Bld) [Volume fraction] 27.2 % Low 35.0-47.0 [facility] Comment on above: Performed By: #### L [id number], [id number] ####Doughnut Dough Mixer: MARY SOTELO ([id number])[address] Hemoglobin (Bld) [Mass/Vol] 8.8 g/dL Low 11.7-16.0 [facility] Comment on above: Performed By: #### L [id number], [id number] ####Doughnut Dough Mixer: MARY SOTELO ([id number])[address] MCH (RBC) [Entitic mass] 28.5 pg Normal 26.0-34.0 [facility] Comment on above: Performed By: #### L [id number], [id number] ####Doughnut Dough Mixer: MARY [id number])[facility] ([facility])[address] [place] [address] MCHC 32.4 % Normal 30.5-36.0 [facility] Comment on above: Performed By: #### L [id number], [id number] ####Doughnut Dough Mixer: MARY SOTELO ([id number])[facility])[address] [place] [address] MCV (RBC) [Entitic vol] 88.0 fL Normal 77.0-99.0 [facility] Comment on above: Performed By: #### L [id number], [id number] ####Doughnut Dough Mixer: MARY SOTELO ([id number])[facility])[address] [place] [address] Platelet mean volume (Bld) [Entitic vol] 10.4 fL Normal 9.0-12.7 [facility] Comment on above: Performed By: #### L [id number], [id number] ####Doughnut Dough Mixer: MARY SOTELO ([id number])[facility])[address] [place] [address] Platelets (Bld) [#/Vol] 186 10*3/uL Normal 140-440 [facility] Comment on above: Performed By: #### L [id number], [id number] ####Doughnut Dough Mixer: MARY SOTELO ([id number])[facility])[address] [place] [address] RBC (Bld) [#/Vol] 3.09 10*6/uL Low 3.80-5.20 [facility] Comment on above: Performed By: #### L [id number], [id number] ####Doughnut Dough Mixer: MARY SOTELO ([id number])[facility])[address] [place] [address] WBC (Bld) [#/Vol] 14.5 10*3/uL High 3.6-10.7 [facility] Comment on above: Performed By: #### L [id number], [id number] ####Doughnut Dough Mixer: MARY [id number])[facility] ([facility])[address] [place] [address] [place] CKon 07-27-2024 CK [Catalytic activity/Vol] 865 U/L High 30-170 [facility] Comment on above: Performed By: #### L AB62, LAB17, [id number], [id number] ####Doughnut Dough Mixer: MARY SOTELO ([id number])[facility] ([facility])[address] [place] [address] COMPREHENSIVE METABOLIC PANE [place] 07-27-2024 Albumin [Mass/Vol] 2.4 g/dL Low 3.5-5.0 [facility] Comment on above: Performed By: #### L AB62, LAB17, [id number], [id number] ####Doughnut Dough Mixer: MARY SOTELO ([id number])[facility] ([facility])[address] [place] [address] ALP [Catalytic activity/Vol] 66 U/L Normal 38-126 [facility] Comment on above: Performed By: #### L AB62, LAB17, [id number], [id number] ####Doughnut Dough Mixer: MARY SOTELO ([id number])[facility] ([facility])[address] [place] [address] ALT [Catalytic activity/Vol] 19 U/L Normal 0-34 [facility] Comment on above: Performed By: #### L AB62, LAB17, ULR137, [id number] ####Doughnut Dough Mixer: MARY SOTELO ([id number])[facility] ([facility])[address] [place] [address] Anion gap [Moles/Vol] 11 mmol/L Normal 3-13 [facility] Comment on above: Performed By: #### L AB62, LAB17, [id number], RCP808 ####Doughnut Dough Mixer: MARY SOTELO ([id number])[facility])[address] [place] [address] AST [Catalytic activity/Vol] 28 U/L Normal 15-46 [facility] Comment on above: Performed By: #### L AB62, LAB17, [id number], [id number] ####Doughnut Dough Mixer: MARY SOTELO ([id number])[facility] [place] [address] Bilirubin [Mass/Vol] 0.3 mg/dL Normal 0.2-1.3 [facility] Comment on above: Performed By: #### L AB62, LAB17, KND707, [id number] ####Doughnut Dough Mixer: MARY SOTELO ([id number])[facility] [place] [address] Calcium [Mass/Vol] 6.5 mg/dL Low 8.4-10.4 [facility] Comment on above: Performed By: #### L AB62, LAB17, TLN117, XIL505 ####Doughnut Dough Mixer: MARY SOTELO ([id number])[facility])[address] [place] [address] Chloride [Moles/Vol] 101 mmol/L Normal 98-107 [facility] Comment on above: Performed By: #### L AB62, LAB17, WIP766, [id number] ####Doughnut Dough Mixer: MARY SOTELO ([id number])[facility] ([facility])[address] [place] [address] CO2 [Moles/Vol] 18 mmol/L Low 22-30 [facility] Comment on above: Performed By: #### L AB62, LAB17, [id number], XBW101 ####Doughnut Dough Mixer: MARY SOTELO ([id number])[facility] ([facility])[address] [place] [address] Creatinine [Mass/Vol] 4.00 mg/dL High 0.52-1.04 [facility] Comment on above: Performed By: #### L AB62, LAB17, TCM416, [id number] ####Doughnut Dough Mixer: MARY SOTELO ([id number])[facility])[address] [place] [address] GLOMERULAR FILTRATION RATE ML/MIN/1.73 SQ M.PREDICTED 11.9 mL/min/1.73m*2 Low >60.0 [facility] Comment on above: Result Comment: Calc ulation based on the Chronic Kidney Disease Epidemiology Collaboration (CKD-EPI) equation refit without adjustment for race Performed By: #### L AB62, LAB17, HUH195, [id number] ####Doughnut Dough Mixer: MARY SOTELO ([id number])[facility])[address] [place] [address] Glucose [Mass/Vol] 254 mg/dL High 70-100 [facility] Comment on above: Performed By: #### L AB62, LAB17, [id number], EAN551 ####Doughnut Dough Mixer: MARY SOTELO ([id number])[facility])[address] [place] [address] Potassium [Moles/Vol] 4.3 mmol/L Normal 3.5-5.1 [facility] Comment on above: Performed By: #### Dora AB62, LAB17, XFY952, CAW289 ####Doughnut Dough Mixer: MARY SOTELO ([id number])[facility])[address] [place] [address] Protein [Mass/Vol] 4.9 g/dL Low 6.3-8.2 [facility] Comment on above: Performed By: #### Dora AB62, LAB17, WVU430, XCL668 ####Doughnut Dough Mixer: MARY SOTELO ([id number])[facility])[address] [place] [address] Sodium [Moles/Vol] 130 mmol/L Low 135-145 [facility] Comment on above: Performed By: #### L AB62, LAB17, NNK242, GMG397 ####Doughnut Dough Mixer: MARY SOTELO ([id number])[facility])[address] [place] [address] Urea nitrogen [Mass/Vol] 66 mg/dL High 7-17 [facility] Comment on above: Performed By: #### L AB62, LAB17, XAC632, UOG053 ####Doughnut Dough Mixer: MARY SOTELO ([id number])[facility])[address] [place] [address] [place] Consulton 07-27-2024 Consult Normal [facility] Consult Normal [facility] Consult Normal [facility] ECG 12-LEADon 07-27-2024 ECG 12-LEAD IMPRESSION: Sinus rhythm Short RI interval Left anterior fascicular block Anteroseptal infarct, age indeterminate Nonspecific T abnormalities, lateral leads Electronically Signed On 07-27-2024 07:43:40 EDT by Mira Byrd Normal [facility] FREE T4on 07-27-2024 Free T4 [Mass/Vol] 1.67 ng/dL Normal 0.78-2.19 [facility] Comment on above: Performed By: #### L [id number] ####Doughnut Dough Mixer: MARY SOTELO ([id number])[facility])[address] [place] [address] HEPATITIS B SURFACE ANTIBODY on 07-27-2024 HEPATITIS B VIRUS SURFACE AB <8.0 Normal [facility] Comment on above: Result Comment: REMIE R COMMENTS:Interpretation:<8.0 Non-Reactive8.0-11.9 Equivocal>= 12.0 Ab DetectedNote: If an equivocal result is interpreted, an antibody status is unable to be determined. Collect new specimen if clinically indicated. Performed By: #### L AB471, [id number] ####Doughnut Dough Mixer: MARY SOTELO ([id number])[facility])[address] [place] [address] HEPATITIS B SURFACE ANTIGENo n 07-27-2024 HEPATITIS B VIRUS SURFACE AG Not detected Normal Not Detected [facility] Comment on above: Performed By: #### L AB471, [id number] ####Doughnut Dough Mixer: MARY SOTELO ([id number])[facility])[address] [place] [address] [place] MAGNESIUMon 07-27-2024 Magnesium [Mass/Vol] 1.9 mg/dL Normal 1.6-2.3 [facility] Comment on above: Performed By: #### L AB103, LAB15 ####Doughnut Dough Mixer: MARY SOTELO ([id number])[facility])[address] [place] [address] [place] Magnesium [Mass/Vol] 2.0 mg/dL Normal 1.6-2.3 [facility] Comment on above: Performed By: #### L AB62, LAB17, [id number], [id number] ####Doughnut Dough Mixer: MARY SOTELO ([id number])[facility] ([facility])[address] [place] [address] MANUAL DIFFERENTIAL (CELLAVI ESPINOZA)on 07-27-2024 ANISOCYTOSIS PRESENCE IN BLOOD BY LIGHT MICROSCOPY Slight Abnormal (none) [facility] Comment on above: Performed By: #### L [id number], [id number] ####Doughnut Dough Mixer: MARY SOTELO ([id number])[facility] ([facility])[address] [place] [address] BAND NEUTROPHILS TOTAL PER COUNTED LEUKOCYTES BY MANUAL COUNT Normal [facility] Comment on above: Performed By: #### L [id number], [id number] ####Doughnut Dough Mixer: MARY SOTELO ([id number])[facility] ([facility])[address] [place] [address] BASOPHILIC STIPPLING PRESENCE IN BLOOD BY LIGHT MICROSCOPY Rare Abnormal (none) [facility] Comment on above: Performed By: #### L [id number], [id number] ####Doughnut Dough Mixer: MARY SOTELO ([id number])[facility] ([facility])[address] [place] [address] [place] BASOPHILS TOTAL PER COUNTED LEUKOCYTES BY MANUAL COUNT Normal [facility] Comment on above: Performed By: #### L [id number], [id number] ####Doughnut Dough Mixer: MARY SOTELO ([id number])[facility] ([facility])[address] [place] [address] [place] BLASTS TOTAL PER COUNTED LEUKOCYTES BY MANUAL COUNT Normal [facility] Comment on above: Performed By: #### L [id number], [id number] ####Doughnut Dough Mixer: MARY SOTELO ([id number])[facility] ([facility])[address] [place] [address] [place] EOSINOPHILS TOTAL PER COUNTED LEUKOCYTES BY MANUAL COUNT Normal [facility] Comment on above: Performed By: #### L [id number], [id number] ####Doughnut Dough Mixer: MARY SOTELO ([id number])[facility] ([facility])[address] [place] [address] LYMPHOCYTE VARIANT/100 LEUKOCYTES IN BLOOD- CELLAVISION 1 % High <=0 [facility] Comment on above: Performed By: #### L [id number], [id number] ####Doughnut Dough Mixer: MARY SOTELO ([id number])[facility] ([facility])[address] [place] [address] [place] LYMPHOCYTES (10*3/UL) IN BLOOD-CELLAVISION 0.7 10*3/uL Low 1.0-4.3 [facility] Comment on above: Performed By: #### L [id number], [id number] ####Doughnut Dough Mixer: MARY SOTELO ([id number])[facility] ([facility])[address] [place] [address] LYMPHOCYTES TOTAL PER COUNTED LEUKOCYTES BY MANUAL COUNT 5 Normal [facility] Comment on above: Performed By: #### L [id number], [id number] ####Doughnut Dough Mixer: MARY SOTELO ([id number])[facility] ([facility])[address] [place] [address] [place] LYMPHOCYTES/100 LEUKOCYTES IN BLOOD-CELLAVISION 5 % Low 15-45 [facility] Comment on above: Performed By: #### L [id number], [id number] ####Doughnut Dough Mixer: MARY SOTELO ([id number])[facility])[address] [place] [address] MACROCYTES (PRESENCE) IN BLOOD BY LIGHT MICROSCOPY Slight Abnormal (none) [facility] Comment on above: Performed By: #### L [id number], [id number] ####Doughnut Dough Mixer: MARY SOTELO ([id number])[facility])[address] [place] [address] METAMYELOCYTES TOTAL PER COUNTED LEUKOCYTES BY MANUAL COUNT Normal [facility] Comment on above: Performed By: #### L [id number], [id number] ####Doughnut Dough Mixer: MARY SOTELO ([id number])[facility] ([facility])[address] [place] [address] [place] MICROCYTES (PRESENCE) IN BLOOD BY LIGHT MICROSCOPY Slight Abnormal (none) [facility] Comment on above: Performed By: #### L [id number], [id number] ####Doughnut Dough Mixer: MARY SOTELO ([id number])[facility])[address] [place] [address] [place] MONOCYTES (10*3/UL) IN BLOOD-CELLAVISION 0.7 10*3/uL Normal 0.0-0.9 [facility] Comment on above: Performed By: #### L [id number], [id number] ####Doughnut Dough Mixer: MARY SOTELO ([id number])[facility] ([facility])[address] [place] [address] [place] MONOCYTES TOTAL PER COUNTED LEUKOCYTES BY MANUAL COUNT 5 Normal [facility] Comment on above: Performed By: #### L [id number], [id number] ####Doughnut Dough Mixer: MARY SOTELO ([id number])[facility])[address] [place] [address] [place] MONOCYTES/100 LEUKOCYTES IN BLOOD-KACEY 5 % Normal 5-13 [facility] Comment on above: Performed By: #### L [id number], [id number] ####Doughnut Dough Mixer: MARY SOTELO ([id number])[facility] ([facility])[address] [place] [address] [place] MYELOCYTES COUNTED BY MANUAL COUNT Normal [facility] Comment on above: Performed By: #### L [id number], [id number] ####Doughnut Dough Mixer: MARY SOTELO ([id number])[facility] ([facility])[address] [place] [address] [place] NEUTROPHILS TOTAL PER COUNTED LEUKOCYTES BY MANUAL COUNT 90 Normal [facility] Comment on above: Performed By: #### L [id number], [id number] ####Doughnut Dough Mixer: MARY SOTELO ([id number])[facility])[address] [place] [address] [place] OVALOCYTES PRESENCE IN BLOOD BY LIGHT MICROSCOPY Slight Abnormal (none) [facility] Comment on above: Performed By: #### L [id number], [id number] ####Doughnut Dough Mixer: MARY SOTELO ([id number])[facility])[address] [place] [address] POIKILOCYTOSIS (PRESENCE) IN BLOOD BY LIGHT MICROSCOPY Slight Abnormal (none) [facility] Comment on above: Performed By: #### L [id number], [id number] ####Doughnut Dough Mixer: MARY SOTELO ([id number])[facility] ([facility])[address] [place] [address] POLYCHROMASIA IN BLOOD BY LIGHT MICROSCOPY Slight Abnormal (none) [facility] Comment on above: Performed By: #### L [id number], [id number] ####Doughnut Dough Mixer: MARY SOTELO ([id number])[facility])[address] [place] [address] PROMYELOCYTES TOTAL PER COUNTED LEUKOCYTES BY MANUAL COUNT Normal [facility] Comment on above: Performed By: #### L [id number], [id number] ####Doughnut Dough Mixer: MARY SOTELO ([id number])[facility])[address] [place] [address] RBC MORPHOLOGY IN BLOOD abnormal Normal [facility] Comment on above: Performed By: #### L [id number], [id number] ####Doughnut Dough Mixer: MARY SOTELO ([id number])[facility])[address] [place] [address] SEGMENTED NEUTROPHILS (10*3/UL) IN BLOOD-CELLAVISION 12.9 10*3/uL High 1.8-7.5 [facility] Comment on above: Performed By: #### L [id number], [id number] ####Doughnut Dough Mixer: MARY SOTELO ([id number])[facility])[address] [place] [address] SEGMENTED NEUTROPHILS/100 LEUKOCYTES-CE 89 % High 38-82 [facility] Comment on above: Performed By: #### L [id number], [id number] ####Doughnut Dough Mixer: MARY SOTELO ([id number])[facility] ([facility])[address] [place] [address] UNCLASSIFIED CELLS TOTAL PER COUNTED LEUKOCYTES BY MANUAL COUNT Normal [facility] Comment on above: Performed By: #### L [id number], [id number] ####Doughnut Dough Mixer: MARY SOTELO ([id number])[facility])[address] [place] [address] VARIANT LYMPHOCYTES (10*3/UL) IN BLOOD-CELLAVISION 0.1 10*3/uL High <=0.0 [facility] Comment on above: Performed By: #### L [id number], [id number] ####Doughnut Dough Mixer: MARY SOTELO ([id number])[facility] ([facility])[address] [place] [address] VARIANT LYMPHOCYTES TOTAL PER COUNTED LEUKOCYTES BY MANUAL COUNT 1 Normal [facility] Comment on above: Performed By: #### L [id number], [id number] ####Doughnut Dough Mixer: MARY SOTELO ([id number])[facility] ([facility])[address] [place] [address] PHOSPHORUSon 07-27-2024 Phosphate [Mass/Vol] 6.8 mg/dL High 2.5-4.5 [facility] Comment on above: Performed By: #### L AB62, LAB17, [id number], [id number] ####Doughnut Dough Mixer: MARY SOTELO ([id number])[facility])[address] [place] [address] PNEUMONIA PCR PANELon 2023 PNEUMONIA PCR PANEL Normal [facility] Comment on above: Performed By: #### L [id number] ####Doughnut Dough Mixer: MARY SOTELO ([id number])[facility])[address] [place] [address] Progress Noteon 07-27-2024 Progress Note Normal [facility] Progress Note Normal [facility] Progress Note OCCUPATIONAL THERAPY [facility] Name/MRN: Sandy Deng ([id number]) Date: 07/27/2024 Intubated, sedated, on bed rest. Will follow. Delmar Ling, OT Normal [facility] Progress Note PHYSICAL THERAPY [facility] Name/MRN: Sandy Deng ([id number]) Date: 07/27/2024 Screen Note. Pt remains intubated and sedated, and on strict bed rest orders. Will continue to follow and re-attempt as able. Jennifer Saldaña, SPT Normal [facility] Progress Note Normal [facility] Progress Note Normal [facility] Progress Note Normal [facility] RENAL FUNCTION PANELon 07-27 Albumin [Mass/Vol] 2.4 g/dL Low 3.5-5.0 [facility] Comment on above: Performed By: #### L AB19 ####Doughnut Dough Mixer: MARY SOTELO ([id number])[facility])[address] [place] [address] Anion gap [Moles/Vol] 4 mmol/L Normal 3-13 [facility] Comment on above: Performed By: #### L AB19 ####Doughnut Dough Mixer: MARY SOTELO ([id number])[facility])[address] [place] [address] Calcium [Mass/Vol] 7.5 mg/dL Low 8.4-10.4 [facility] Comment on above: Performed By: #### L AB19 ####Doughnut Dough Mixer: MARY SOTELO ([id number])[facility])[address] [place] [address] Chloride [Moles/Vol] 102 mmol/L Normal 98-107 [facility] Comment on above: Performed By: #### L AB19 ####Doughnut Dough Mixer: MARY SOTELO ([id number])[facility])[address] [place] [address] CO2 [Moles/Vol] 25 mmol/L Normal 22-30 [facility] Comment on above: Performed By: #### L AB19 ####Doughnut Dough Mixer: MARY SOTELO ([id number])[facility] ([facility] [place] [address] [place] Creatinine [Mass/Vol] 2.81 mg/dL High 0.52-1.04 [facility] Comment on above: Performed By: #### L AB19 ####Doughnut Dough Mixer: MARY SOTELO ([id number])[facility] ([facility] [place] [address] [place] GLOMERULAR FILTRATION RATE ML/MIN/1.73 SQ M.PREDICTED 18.2 mL/min/1.73m*2 Low >60.0 [facility] Comment on above: Result Comment: Calc ulation based on the Chronic Kidney Disease Epidemiology Collaboration (CKD-EPI) equation refit without adjustment for race Performed By: #### L AB19 ####Doughnut Dough Mixer: MARY SOTELO ([id number])[facility] [place] [address] Glucose [Mass/Vol] 83 mg/dL Normal 70-100 [facility] Comment on above: Performed By: #### L AB19 ####Doughnut Dough Mixer: MARY SOTELO ([id number])[facility] [place] [address] [place] Phosphate [Mass/Vol] 4.6 mg/dL High 2.5-4.5 [facility] Comment on above: Performed By: #### L AB19 ####Doughnut D[employer] Mixer: MARY SOTELO ([id number])[facility] [place] [address] [place] Potassium [Moles/Vol] 3.6 mmol/L Normal 3.5-5.1 [facility] Comment on above: Performed By: #### L AB19 ####Doughnut Dough Mixer: MARY SOTELO ([id number])[facility] ([facility])[address] [place] [address] [place] Sodium [Moles/Vol] 131 mmol/L Low 135-145 [facility] Comment on above: Performed By: #### L AB19 ####Doughnut D[employer] Mixer: MARY SOTELO ([id number])[facility] ([facility])[address] [place] [address] [place] Urea nitrogen [Mass/Vol] 49 mg/dL High 7-17 [facility] Comment on above: Performed By: #### L AB19 ####D[employer]nut D[employer] Mixer: MARY SOTELO ([id number])[facility] ([facility] [place] [address] [place] RESPIRATORY CULTURE AND STAI Non 07-27-2024 RESPIRATORY CULTURE AND STAIN Normal [facility] Comment on above: Performed By: #### L [id number] ####D[employer] D[employer] Mixer: MARY SOTELO ([id number])[facility] ([facility])[address] [place] [address] RESPIRATORY PATHOGENS PANEL BY PCRon 07-27-2024 RESPIRATORY PATHOGENS PANEL BY PCR Normal [facility] Comment on above: Performed By: #### L [id number] ####D[employer] D[employer] Mixer: MARY SOTELO ([id number])[facility] ([facility] [place] [address] Renal Profileon 07-27-2024 ALB Normal 3.2-5.0 [facility] Comment on above: Result Comment: Canc elled via OM: Order cancelled - Patient discharged Performed By: #### L 500.3600 ####[facility] [address] [facility] [address] BUN Normal 7-18 [facility] Comment on above: Result Comment: Canc elled via OM: Order cancelled - Patient discharged Performed By: #### L 500.3600 ####[facility] [address] [facility] [address] BUN/CRE Normal 10-20 [facility] Comment on above: Result Comment: Canc elled via OM: Order cancelled - Patient discharged Performed By: #### L 500.3600 ####[facility] [address] [place], [address] [place],Total Normal 8.5-10.1 [facility] Comment on above: Result Comment: Canc elled via OM: Order cancelled - Patient discharged Performed By: #### L 500.3600 ####[facility] [address] [place], [address] CL Normal 98-107 [facility] Comment on above: Result Comment: Canc elled via OM: Order cancelled - Patient discharged Performed By: #### L 500.3600 ####[facility] [address] [place], [address] CO2 Normal 21.0-32.0 [facility] Comment on above: Result Comment: Canc elled via OM: Order cancelled - Patient discharged Performed By: #### L 500.3600 ####[facility] [address] [place], [address] CREAT,SERUM Normal 0.55-1.02 [facility] Comment on above: Result Comment: Canc elled via OM: Order cancelled - Patient discharged Performed By: #### L 500.3600 ####[facility] [address] [place], [address] EST GFR Normal >60 [facility] Comment on above: Result Comment: Canc elled via OM: Order cancelled - Patient discharged Performed By: #### L 500.3600 ####[facility] [address] [place], [address] EST GFR - AA Normal >60 [facility] Comment on above: Result Comment: Canc elled via OM: Order cancelled - Patient discharged Performed By: #### L 500.3600 ####[facility] [address] [place], [address] GLU Normal 74-106 [facility] Comment on above: Result Comment: Canc elled via OM: Order cancelled - Patient discharged Performed By: #### L 500.3600 ####[facility] [address] [place], [place], [address] PHOS Normal 2.5-4.9 [facility] Comment on above: Result Comment: Canc elled via OM: Order cancelled - Patient discharged Performed By: #### L 500.3600 ####[facility] [address] [place], [address] Potassium Normal 3.5-5.1 [facility] Comment on above: Result Comment: Canc elled via OM: Order cancelled - Patient discharged Performed By: #### L 500.3600 ####[facility] [address] [place], [address] Renal Profile Normal 136-145 [facility] Comment on above: Result Comment: Canc elled via OM: Order cancelled - Patient discharged Performed By: #### L 500.3600 ####[facility] [address] [place], [address] TROPONIN Ion 07-27-2024 Troponin I.cardiac [Mass/Vol] 0.017 ng/mL Normal <0.034 [facility] Comment on above: Result Comment: BINA Olivarez COMMENTS:Patients with high levels of Biotin oral intake (ie >5 mg/day) may have falsely decreased Troponin levels. Performed By: #### L [id number] ####[employer]: MARY SOTELO ([id number])[facility] ([address] US RETROPERITONEUM LIMITEDon 07-27-2024 US RETROPERITONEUM LIMITED Normal [facility] Vitamin D 1,25-Dihydroxyon 0 07-27-2024 VIT D 1,25 DIHY 41.6 pg/mL Normal 24.8-81.5 [facility] Comment on above: Result Comment: Perf ormed at: - [facility] [id number] Director: Rico Lord MD, Phone: [phone] Performed By: #### L 501.9985, L506.1000, L100.0100, L500.4050, L509.1000, L3300.0960 ####[facility] [address] [place], [address] Abdomen Single View (Portabl e)on 07-26-2024 Abdomen Single View (Portable) Normal [facility] BLOOD GAS ARTERIALon 024 Base excess Calc (Bld) [Moles/Vol] -16.70458 mmol/L Low -3.0-3.0 [facility] Comment on above: Performed By: #### L AB76 ####[employer]er: MARY SOTELO ([id number])[facility] ([facility])[address] [place] [address] CO2 [Moles/Vol] 11.7 mmol/L Low 23.0-27.0 [facility] Comment on above: Performed By: #### L AB76 ####[employer]er: MARY SOTELO ([id number])[facility] ([facility])[address] [place] [address] HCO3 (Bld) [Moles/Vol] 10.7 mmol/L Low 21.0-25.0 [facility] Comment on above: Performed By: #### L AB76 ####[employer]er: MARY SOTELO ([id number])[facility] ([facility])[address] [place] [address] Hemoglobin (Bld) [Mass/Vol] 8.1 g/dL Normal Screen only [facility] Comment on above: Performed By: #### L AB76 ####[employer]er: MARY SOTELO ([id number])[facility] ([facility])[address] [place] [address] OXYGEN SATURATION (%) IN ARTERIAL BLOOD 94.9 % Low 95.0-100.0 [facility] Comment on above: Performed By: #### L AB76 ####[employer]er: MARY SOTELO ([id number])[facility] ([facility])[address] [place] [address] PCO2 ARTERIAL 30.4 mm Hg Low >35.0-<45.0 [facility] Comment on above: Performed By: #### L AB76 ####[employer]er: MARY SOTELO ([id number])[facility] ([facility])[address] [place] [address] PH ARTERIAL 7.166 Critically low 7.350-7.450 [employer] [facility] Comment on above: Performed By: #### L AB76 ####[employer]er: MARY SOTELO ([id number])[facility] ([facility])[address] [place] [address] PO2 ARTERIAL 95.4 mm Hg Normal 80.0-100.0 [facility] Comment on above: Performed By: #### L AB76 ####[employer]er: MARY SOTELO ([id number])[facility] ([facility])[address] [place] [address] SOURCE OF OXYGEN Vent Normal [facility] Comment on above: Performed By: #### L AB76 ####[employer]er: MARY SOTELO ([id number])[facility] ([facility])[address] [place] [address] Bedside Glucoseon 07-26-2024 FINGERSTICK GLU 290 mg/dL High 74-106 [facility] Comment on above: Result Comment: SHELLY GEMENT OF PATIENT CARE PER NURSING PROTOCOL Performed By: #### L 501.080 ####[facility] [address] [place] [address] FINGERSTICK GLU 224 mg/dL High 74-106 [facility] Comment on above: Result Comment: SHELLY GEMENT OF PATIENT CARE PER NURSING PROTOCOL Performed By: #### L 501.080 ####[facility] [address] [facility] [address] FINGERSTICK GLU 193 mg/dL High 74-106 [facility] Comment on above: Result Comment: SHELLY GEMENT OF PATIENT CARE PER NURSING PROTOCOL Performed By: #### L 501.080 ####[facility] [address] [facility] [address] [facility] Base excess Calc (Bld) [Moles/Vol] -15 mmol/L Low -2 to +2 [facility] Comment on above: Performed By: #### L 9000.0800 ####[facility] [address] [place], [address] Blood Gas Type ART [facility] Comment on above: Performed By: #### L 9000.0800 ####[facility] [address] [place], [address] CO2 [Moles/Vol] 18 mmol/L Normal [facility] Comment on above: Performed By: #### L 9000.0800 ####[facility] [address] [place], [address] FI02 50.0 [facility] Comment on above: Performed By: #### L 9000.0800 ####[facility] [address] [place], [address] HCO3 (Bld) [Moles/Vol] 16.3 mmol/L Low 22-26 [facility] Comment on above: Performed By: #### L 9000.0800 ####[facility] [address] [place], [address] Mode AC Normal [facility] Comment on above: Performed By: #### L 9000.0800 ####[facility] [address] [place], [address] O2 Delivery Dev Not entered Normal [facility] Comment on above: Performed By: #### L 9000.0800 ####[facility] [address] [place], [address] pCO2 64.6 mmHg High 35-45 [facility] Comment on above: Performed By: #### L 9000.0800 ####[facility] [address] [place], [address] PEEP 5 Normal [facility] Comment on above: Performed By: #### L 9000.0800 ####[facility] [address] [place], [address] pH (Bld) 7.01 [pH] Invalid Interpretation Code 7.35-7.45 [facility] Comment on above: Performed By: #### L 9000.0800 ####[facility] [address] [place], [address] PO2 127 mmHG High 75-100 [facility] Comment on above: Performed By: #### L 9000.0800 ####[facility] [address] [place], [address] Read Back By Yes [facility] Comment on above: Performed By: #### L 9000.0800 ####[facility] [address] [place], [address] Results To brown Normal [facility] Comment on above: Performed By: #### L 9000.0800 ####[facility] [address] [place], [address] RR 16 Normal [facility] Comment on above: Performed By: #### L 9000.0800 ####[facility] [address] [place], [address] SITE R Brach Normal [facility] Comment on above: Performed By: #### L 9000.0800 ####[facility] [address] [place], [address] SO2 96 Normal 95-99 [facility] Comment on above: Performed By: #### L 9000.0800 ####[facility] [address] [place], [address] Time Given 12:36:55 [facility] Comment on above: Performed By: #### L 9000.0800 ####[facility] [address] [place], [address] Vt 400.0 mL Normal [facility] Comment on above: Performed By: #### L 0.0800 ####[facility] [address] [place], [address] Base excess Calc (Bld) [Moles/Vol] -11 mmol/L Low -2 to +2 [facility] Comment on above: Performed By: #### L 8999.0800 ####[facility] [address] [place], [address] Blood Gas Type ART Normal [facility] Comment on above: Performed By: #### L 8999.0800 ####[facility] [address] [place], [address] CO2 [Moles/Vol] 23 mmol/L Normal [facility] Comment on above: Performed By: #### L 8999.0800 ####[facility] [address] [place], [address] FI02 4.0 Normal [facility] Comment on above: Performed By: #### L 8999.0800 ####[facility] [address] [place], [address] HCO3 (Bld) [Moles/Vol] 20.1 mmol/L Low 22-26 [facility] Comment on above: Performed By: #### L 0.0800 ####[facility] [address] [place], [address] Mode Not entered [facility] Comment on above: Performed By: #### L 8999.0800 ####[facility] [address] [place], [address] O2 Delivery Dev Not entered [facility] Comment on above: Performed By: #### L 8999.0800 ####[facility] [address] [place], [address] pCO2 82.1 mmHg Invalid Interpretation Code 35-45 [facility] Comment on above: Performed By: #### L 9000.0800 ####[facility] [address] [place], [address] pH (Bld) 7.00 [pH] Invalid Interpretation Code 7.35-7.45 [facility] Comment on above: Performed By: #### L 9000.0800 ####[facility] [address] [place], [address] PO2 119 mmHG High 75-100 [facility] Comment on above: Performed By: #### L 9000.0800 ####[facility] [address] [place], [address] Read Back By Yes Normal [facility] Comment on above: Performed By: #### L 9000.0800 ####[facility] [address] [place], [address] Results To Jsoé Miguel Normal [facility] Comment on above: Performed By: #### L 9000.0800 ####[facility] [address] [place], [address] SITE L Radial Normal [facility] Comment on above: Performed By: #### L 9000.0800 ####[facility] [address] [place], [address] SO2 95 Normal 95-99 [facility] Comment on above: Performed By: #### L 9000.0800 ####[facility] [address] [place], [address] Time Given 09:09:17 [facility] Comment on above: Performed By: #### L 9000.0800 ####[facility] [address] [place], [address] Brain/Head without Contrasto n 07-26-2024 Brain/Head without Contrast Normal [facility] Brain/Head without Contrast Normal [facility] CALCIUM, IONIZEDon CALCIUM IONIZED 2.80 mg/dL Low 4.30-5.20 [facility] Comment on above: Performed By: #### L AB54 ####[employer]er: MARY SOTELO ([id number])[facility])[address] [place] [address] PH, IONIZED CALCIUM 7.29 Low 7.31-7.46 [facility] Comment on above: Performed By: #### L AB54 ####[employer]er: MARY SOTELO ([id number])[facility])[address] [place] [address] CBC WITH AUTO DIFFERENTIALon 07-26-2024 Basophils (Bld) [#/Vol] 0.0 10*3/uL Normal 0.0-0.2 [facility] Comment on above: Performed By: #### L [id number] ####[employer]er: MARY SOTELO ([id number])[facility])[address] [place] [address] Basophils/100 WBC (Bld) 0.1 % Normal 0.0-2.0 [facility] Comment on above: Performed By: #### L [id number] ####[employer]er: MARY SOTELO ([id number])[facility])[address] [place] [address] Eosinophils (Bld) [#/Vol] 0.0 10*3/uL Normal 0.0-0.5 [facility] Comment on above: Performed By: #### L [id number] ####[employer]er: MARY SOTELO ([id number])[facility])[address] [place] [address] Eosinophils/100 WBC (Bld) 0.1 % Normal 0.0-6.0 [facility] Comment on above: Performed By: #### L [id number] ####[employer]er: MARY [id number])[facility])[address] [place] [address] Erythrocyte distribution width (RBC) [Ratio] 15.5 % High 11.5-15.0 [facility] Comment on above: Performed By: #### L [id number] ####[employer]er: MARY SOTELO ([id number])[facility])[address] [place] [address] Hematocrit (Bld) [Volume fraction] 31.3 % Low 35.0-47.0 [facility] Comment on above: Performed By: #### L [id number] ####[employer]er: MARY SOTELO ([id number])[facility])[address] [place] [address] Hemoglobin (Bld) [Mass/Vol] 10.1 g/dL Low 11.7-16.0 [facility] Comment on above: Performed By: #### L [id number] ####[employer]er: MARY SOTELO ([id number])[facility])[address] [place] [address] IMMATURE GRANS % 0.6 % Normal 0.0-2.0 [facility] Comment on above: Performed By: #### L [id number] ####[employer] D[employer] Mixer: MARY SOTELO ([id number])[facility])[address] [place] [address] IMMATURE GRANS ABSOLUTE 0.1 10*3/uL High <0.1 [facility] Comment on above: Performed By: #### L [id number] ####[employer]er: MARY SOTELO ([id number])[facility])[address] [place] [address] Lymphocytes (Bld) [#/Vol] 1.2 10*3/uL Normal 1.0-4.3 [facility] Comment on above: Performed By: #### L [id number] ####[employer] Mixer: MARY SOTELO ([id number])[facility])[address] [place] [address] [place] Lymphocytes/100 WBC (Bld) 6.2 % Low 15.0-45.0 [facility] Comment on above: Performed By: #### L [id number] ####[employer] Mixer: MARY SOTELO ([id number])[facility])[address] [place] [address] MCH (RBC) [Entitic mass] 28.6 pg Normal 26.0-34.0 [facility] Comment on above: Performed By: #### L [id number] ####D[employer] D[employer] Mixer: MARY SOTELO ([id number])[facility])[address] [place] [address] MCHC 32.3 % Normal 30.5-36.0 [facility] Comment on above: Performed By: #### L [id number] ####[employer] Mixer: MARY SOTELO ([id number])[facility])[address] [place] [address] MCV (RBC) [Entitic vol] 88.7 fL Normal 77.0-99.0 [facility] Comment on above: Performed By: #### L [id number] ####D[employer] D[employer] Mixer: MARY SOTELO ([id number])[facility])[address] [place] [address] Monocytes (Bld) [#/Vol] 1.4 10*3/uL High 0.0-0.9 [facility] Comment on above: Performed By: #### L [id number] ####[employer]er: MARY SOTELO ([id number])[facility])[address] [place] [address] Monocytes/100 WBC (Bld) 7.2 % Normal 5.0-13.0 [facility] Comment on above: Performed By: #### L [id number] ####[employer]er: MARY SOTELO ([id number])[facility])[address] [place] [address] NEUTROPHILS ABSOLUTE 16.1 10*3/uL High 1.8-7.5 [facility] Comment on above: Performed By: #### L [id number] ####D[employer] Mixer: MARY SOTELO ([id number])[facility] ([facility])[address] [place] [address] Neutrophils/100 WBC (Bld) 85.8 % High 38.0-82.0 [facility] Comment on above: Performed By: #### L [id number] ####[employer]er: MARY SOTELO ([id number])[facility] ([facility])[address] [place] [address] NRBC 1.1 /100 WBCs Normal 0.0-2.0 [facility] Comment on above: Performed By: #### L [id number] ####[employer] Mixer: MARY SOTELO ([id number])[facility])[address] [place] [address] Platelet mean volume (Bld) [Entitic vol] 11.0 fL Normal 9.0-12.7 [facility] Comment on above: Performed By: #### L [id number] ####[employer] Mixer: MARY SOTELO ([id number])[facility] ([facility])[address] [place] [address] Platelets (Bld) [#/Vol] 244 10*3/uL Normal 140-440 [facility] Comment on above: Performed By: #### L [id number] ####[employer]er: MARY SOTELO ([id number])[facility])[address] [place] [address] RBC (Bld) [#/Vol] 3.53 10*6/uL Low 3.80-5.20 [facility] Comment on above: Performed By: #### L [id number] ####[employer]er: MARY SOTELO ([id number])[facility])[address] [place] [address] WBC (Bld) [#/Vol] 18.7 10*3/uL High 3.6-10.7 [facility] Comment on above: Performed By: #### L [id number] ####[employer]er: MARY SOTELO ([id number])[facility] ([facility])[address] [place] [address] CBC-Complete Blood Cnt No Josee infante 07-26-2024 Erythrocyte distribution width (RBC) [Ratio] 15.0 % High 11.6-14.6 [facility] Comment on above: Performed By: #### L 100.0500, L500.3600 ####[facility] [address] [place], [address] Hematocrit (Bld) [Volume fraction] 22.7 % Low 37-47 [facility] Comment on above: Performed By: #### L 100.0500, L500.3600 ####[facility] [address] [place], [address] Hemoglobin (Bld) [Mass/Vol] 6.9 g/dL Low 12.0-15.0 [facility] Comment on above: Performed By: #### L 100.0500, L500.3600 ####[facility] [address] [place], [address] MCH (RBC) [Entitic mass] 28.9 pg Normal 27.0-32.0 [facility] Comment on above: Performed By: #### L 100.0500, L500.3600 ####[facility] [address] [place], [address] MCHC (RBC) [Mass/Vol] 30.4 g/dL Low 32-36 [facility] Comment on above: Performed By: #### L 100.0500, L500.3600 ####[facility] [address] [place], [address] MCV (RBC) [Entitic vol] 95.0 fL Normal 81-99 [facility] Comment on above: Performed By: #### L 100.0500, L500.3600 ####[facility] [address] [place], [address] Platelet mean volume (Bld) [Entitic vol] 10.8 fL Normal 6.2-12.0 [facility] Comment on above: Performed By: #### L 100.0500, L500.3600 ####[facility] [address] [place], [address] Platelets (Bld) [#/Vol] 164 10*3/uL Normal 150-450 [facility] Comment on above: Performed By: #### L 100.0500, L500.3600 ####[facility] [address] [place], [address] RBC (Bld) [#/Vol] 2.39 10*6/uL Low 4.2-5.4 [facility] Comment on above: Performed By: #### L 100.0500, L500.3600 ####[facility] [address] [place], [address] RDW SD 52.6 fl High 35.1-43.9 [facility] Comment on above: Performed By: #### L 100.0500, L500.3600 ####[facility] [address] [place], [address] WBC (Bld) [#/Vol] 8.3 10*3/uL Normal 4.4-11.0 [facility] Comment on above: Performed By: #### L 100.0500, L500.3600 ####[facility] [address] [place], [address] COMPREHENSIVE METABOLIC PANE [place] 07-26-2024 Albumin [Mass/Vol] 2.9 g/dL Low 3.5-5.0 [facility] Comment on above: Performed By: #### L AB17, DGT339, SKJ924, [id number], HTZ187 ####[employer]er: MARY SOTELO ([id number])[facility] ([facility])[address] ALP [Catalytic activity/Vol] 68 U/L Normal 38-126 [facility] Comment on above: Performed By: #### L AB17, XXX822, SYY968, [id number], JHA893 ####[employer]: MARY SOTELO ([id number])[facility] ([facility])[address] [place] [address] ALT [Catalytic activity/Vol] 21 U/L Normal 0-34 [facility] Comment on above: Performed By: #### L AB17, IRW008, DZC780, [id number], FFU840 ####[employer]: MARY SOTELO ([id number])[facility] ([facility])[address] [place] [address] Anion gap [Moles/Vol] 10 mmol/L Normal 3-13 [facility] Comment on above: Performed By: #### L AB17, HIF967, DWJ169, [id number], DES307 ####[employer]er: MARY SOTELO ([id number])[facility] ([facility])[address] [place] [address] AST [Catalytic activity/Vol] 40 U/L Normal 15-46 [facility] Comment on above: Performed By: #### L AB17, NLP946, UCH639, [id number], CJM535 ####[employer]: MARY SOTELO ([id number])[facility] ([facility])[address] [place] [address] Bilirubin [Mass/Vol] 0.5 mg/dL Normal 0.2-1.3 [facility] Comment on above: Performed By: #### L AB17, PLS648, NGJ270, [id number], ZXT643 ####[employer]er: MARY SOTELO ([id number])[facility] ([facility])[address] [place] [address] Calcium [Mass/Vol] 5.5 mg/dL Critically low 8.4-10.4 [facility] Comment on above: Performed By: #### L AB17, BSZ724, YCR246, [id number], JLU953 ####[employer]: MARY SOTELO ([id number])[facility] ([facility])[address] [place] [address] [place] Chloride [Moles/Vol] 98 mmol/L Normal 98-107 [facility] Comment on above: Performed By: #### L AB17, UYE123, GCF194, [id number], DWB760 ####[employer]er: MARY SOTELO ([id number])[facility] ([facility])[address] [place] [address] CO2 [Moles/Vol] 17 mmol/L Low 22-30 [facility] Comment on above: Performed By: #### L AB17, OQG894, MUP584, [id number], URQ870 ####[employer]er: MARY SOTELO ([id number])[facility] ([facility])[address] [place] [address] Creatinine [Mass/Vol] 4.56 mg/dL High 0.52-1.04 [facility] Comment on above: Performed By: #### L AB17, LON799, JBY326, [id number], SCR321 ####[employer]er: MARY SOTELO ([id number])[facility] ([facility])[address] [place] [address] GLOMERULAR FILTRATION RATE ML/MIN/1.73 SQ M.PREDICTED 10.2 mL/min/1.73m*2 Low >60.0 [facility] Comment on above: Result Comment: Calc ulation based on the Chronic Kidney Disease Epidemiology Collaboration (CKD-EPI) equation refit without adjustment for race Performed By: #### L AB17, [id number], [id number], [id number], [id number] ####Doughnut Dough Mixer: MARY SOTELO ([id number])[facility] ([facility])[address] [place] [address] [place] Glucose [Mass/Vol] 252 mg/dL High 70-100 [facility] Comment on above: Performed By: #### L AB17, [id number], [id number], [id number], [id number] ####Doughnut Dough Mixer: MARY SOTELO ([id number])[facility])[address] [place] [address] Potassium [Moles/Vol] 5.5 mmol/L High 3.5-5.1 [facility] Comment on above: Performed By: #### L AB17, [id number], [id number], [id number], [id number] ####Doughnut Dough Mixer: MARY SOTELO ([id number])[facility])[address] [place] [address] Protein [Mass/Vol] 5.5 g/dL Low 6.3-8.2 [facility] Comment on above: Performed By: #### L AB17, EDG455, SGA817, [id number], [id number] ####Doughnut Dough Mixer: MARY SOTELO ([id number])[facility] ([facility])[address] [place] [address] Sodium [Moles/Vol] 125 mmol/L Low 135-145 [facility] Comment on above: Performed By: #### L AB17, HUJ984, DES445, [id number], UPE589 ####Doughnut Dough Mixer: MARY SOTELO ([id number])[facility] ([facility])[address] [place] [address] Urea nitrogen [Mass/Vol] 76 mg/dL High 7-17 [facility] Comment on above: Performed By: #### L AB17, FSW793, AMZ091, [id number], IKE713 ####Doughnut Dough Mixer: MARY SOTELO ([id number])[facility])[address] [place] [address] [place] CPK Total, Creatine Kinaseon 07-26-2024 CPK TOTAL 1209 U/L High 26-192 [facility] Comment on above: Order Comment: Comme nts: DC when propofol is d/c'dDC when propofol is d/c'd Performed By: #### L 501.3620, L501.5000 ####[facility] [address] [place], [place], [address] CREATININE, URINE, RANDOMon 07-26-2024 CREATININE, URINE 96.9 mg/dL Normal No Range [facility] Comment on above: Performed By: #### L AB444, IZM700, VJQ495 ####Doughnut Dough Mixer: MARY SOTELO ([id number])[facility] ([facility])[address] [place] [address] CT CERVICAL SPINE WO IV CONT RASTon 07-26-2024 CT CERVICAL SPINE WO IV CONTRAST Normal [facility] CT HEAD WO IV CONTRASTon CT HEAD WO IV CONTRAST Normal [facility] CXR for Line Placementon CXR for Line Placement Normal [facility] Chest 1 View (Portable)on Chest 1 View (Portable) Normal [facility] Consulton 07-26-2024 Consult Normal [facility] Consultation - Intensiviston 07-26-2024 Consultation - Learning Support Specialist Normal [facility] HEMOGLOBIN A1Con 07-26-2024 Glucose [Mass/Vol] 131 mg/dL Normal [facility] Comment on above: Order Comment: If no t done within the last 3 mos Performed By: #### L AB90 ####Doughnut Dough Mixer: MARY SOTELO ([id number])[facility] ([facility])[address] [place] [address] HbA1c (Bld) [Mass fraction] 6.2 % High <5.7 [facility] Comment on above: Order Comment: If no t done within the last 3 mos Result Comment: Norm al less than 5.7%Prediabetes 5.7% to 6.4%Diabetes 6.5% or higher--HgbA1C levels may not be accurate in patients who have renal disease, received recent blood transfusions, are anemic, or who have dyshemoglobinemia. Performed By: #### L AB90 ####Doughnut Dough Mixer: MARY SOTELO ([id number])[facility] ([facility])[address] [place] [address] LACTIC ACID WITH REFLEXon Lactate [Moles/Vol] 0.9 mmol/L Normal 0.7-2.0 [facility] Comment on above: Performed By: #### L [id number] ####Doughnut Dough Mixer: MARY SOTELO ([id number])[facility])[address] [place] [address] LEGIONELLA AND STREPTOCOCCUS URINE ANTIGENon 07-26-2024 LEGIONELLA AND STREPTOCOCCUS URINE ANTIGEN Normal [facility] Comment on above: Performed By: #### L [id number] ####Doughnut Dough Mixer: MARY SOTELO ([id number])[facility])[address] [place] [address] MAGNESIUMon 07-26-2024 Magnesium [Mass/Vol] 1.5 mg/dL Low 1.6-2.3 [facility] Comment on above: Performed By: #### L AB17, DBR066, NCV252, [id number], [id number] ####Doughnut Dough Mixer: MARY SOTELO ([id number])[facility])[address] [place] [address] MR/CON.PCM.NEon 07-26-2024 MR/CON.PCM.NE Normal [facility] OSMOLALITY, SERUMon 07-26-20 24 OSMOLALITY, SERUM 309 mOsm/kg High 280-300 [facility] Comment on above: Performed By: #### L AB107 ####Doughnut Dough Mixer: MARY SOTELO ([id number])[facility])[address] [place] [address] OSMOLALITY, URINEon 07-26-20 24 OSMOLALITY, URINE 316 mOsm/kg Normal 300-1000 [facility] Comment on above: Performed By: #### L AB444, PCZ417, XXX428 ####Doughnut Dough Mixer: MARY SOTELO ([id number])[facility])[address] [place] [address] PHOSPHORUSon 07-26-2024 Phosphate [Mass/Vol] 8.5 mg/dL High 2.5-4.5 [facility] Comment on above: Performed By: #### L AB17, EZG874, OZF763, [id number], DDT305 ####Doughnut Dough Mixer: MARY SOTELO ([id number])[facility])[address] [place] [address] PROCALCITONIN TESTon 024 PROCALCITONIN 2.48 ng/mL High 0.00-0.09 [facility] Comment on above: Result Comment: BINA Olivarez COMMENTS:PCT <0.50 = Low risk of severe sepsis and/or septic shock.PCT >2.00 = High risk of severe sepsis and/or septic shock. Performed By: #### L [id number] ####Doughnut Dough Mixer: MARY SOTELO ([id number])[facility] ([id number] [place] [address] Partial Thromboplast Timeon 07-26-2024 aPTT Coag (Bld) [Time] 33.7 s Normal 24.1-36.2 [facility] Comment on above: Performed By: #### L 300.4310, L300.3900 ####[facility] [address] [place], [address] Procedure Reporton Procedure Report Normal [facility] Procedure Report Normal [facility] Prothrombin Time w/INRon INR Coag (PPP) [Relative time] 1.3 {INR} Normal [facility] Comment on above: Performed By: #### L 300.4310, L300.3900 ####[facility] [address] [place], [address] PT Coag (PPP) [Time] 15.7 s High 11.7-14.9 [facility] Comment on above: Performed By: #### L 300.4310, L300.3900 ####[facility] [address] [place], [address] Renal Profileon 07-26-2024 Albumin [Mass/Vol] 2.4 g/dL Low 3.2-5.0 [facility] Comment on above: Performed By: #### L 100.0500, L500.3600 ####[facility] [address] [place], [address] BUN/CRE 15.4 RATIO Normal 10-20 [facility] Comment on above: Performed By: #### L 100.0500, L500.3600 ####[facility] [address] [place], [address] CA,Total 5.5 mg/dL Invalid Interpretation Code 8.5-10.1 [facility] Comment on above: Result Comment: Crit ical Result(s) Called at: 03:18:33 07/26/2024 by:Ana Rosa Andrew to [employer]. Results read back by same. Performed By: #### L 100.0500, L500.3600 ####[facility] [address] [place], [id number] Chloride [Moles/Vol] 100 mmol/L Normal 98-107 [facility] Comment on above: Performed By: #### L 100.0500, L500.3600 ####[facility] [address] [place], [address] CO2 [Moles/Vol] 20.0 mmol/L Low 21.0-32.0 [facility] Comment on above: Performed By: #### L 100.0500, L500.3600 ####[facility] [address] [place], [address] Creatinine [Mass/Vol] 3.84 mg/dL High 0.55-1.02 [facility] Comment on above: Result Comment: The validity of the calculated GFR GFRAA in patients over70 years has not been determined. Clinical correlation isessential. Performed By: #### L 100.0500, L500.3600 ####[facility] [address] [place], [address] ECRCL 11.26 ml/min Normal [facility] Comment on above: Performed By: #### L 100.0500, L500.3600 ####[facility] [address] [place], [address] EST GFR - AA 15 mL/min Low >60 [facility] Comment on above: Result Comment: Afri can [place] GFR Calc Performed By: #### L 100.0500, L500.3600 ####[facility] [address] [place], [address] GFR/1.73 sq M.predicted among non-blacks MDRD (S/P/Bld) [Vol rate/Area] 13 mL/min/{1.73_m2} Low >60 [facility] Comment on above: Result Comment: Non- GFR Calc Performed By: #### L 100.0500, L500.3600 ####[facility] [address] [place], [address] Glucose [Mass/Vol] 167 mg/dL High 74-106 [facility] Comment on above: Result Comment: Fast ing Glucose result greater than or equal to 126 mg/dLsuggests DIABETES MELLITUS per A.D.A. criteria. Performed By: #### L 100.0500, L500.3600 ####[facility] [address] [place], [address] Phosphate [Mass/Vol] 7.0 mg/dL High 2.5-4.9 [facility] Comment on above: Performed By: #### L 100.0500, L500.3600 ####[facility] [address] [place], [address] Potassium [Moles/Vol] 5.6 mmol/L High 3.5-5.1 [facility] Comment on above: Performed By: #### L 100.0500, L500.3600 ####[facility] [address] [place], [address] Sodium [Moles/Vol] 131 mmol/L Low 136-145 [facility] Comment on above: Performed By: #### L 100.0500, L500.3600 ####[facility] [address] [place], [address] Urea nitrogen [Mass/Vol] 59 mg/dL High 7-18 [facility] Comment on above: Performed By: #### L 100.0500, L500.3600 ####[facility] [address] [place], [address] SODIUM, URINE, RANDOMon 07-05 Sodium (U) [Moles/Vol] 31 mmol/L Normal 30-90 [facility] Comment on above: Performed By: #### L AB444, VXI223, SYW104 ####Doughnut Dough Mixer: MARY SOTELO ([id number])[facility] ([facility])[address] [place] [address] [place] THYROID STIMULATING HORMONEo n 07-26-2024 THYROID STIMULATING HORMONE 3.472 uIU/mL Normal 0.465-4.680 [facility] Comment on above: Performed By: #### L AB17, XSO581, INQ235, [id number], IHD399 ####Doughnut Dough Mixer: MARY SOTELO ([id number])[facility] ([facility])[address] [place] [address] [place] TROPONIN Ion 07-26-2024 Troponin I.cardiac [Mass/Vol] 0.014 ng/mL Normal <0.034 [facility] Comment on above: Result Comment: BINA Olivarez COMMENTS:Patients with high levels of Biotin oral intake (ie >5 mg/day) may have falsely decreased Troponin levels. Performed By: #### L AB747 ####Doughnut Dough Mixer: MARY SOTELO ([id number])[facility] ([facility])[address] [place] [address] [place] TROPONIN, WITH SERIAL REFLEX on 07-26-2024 Troponin I.cardiac [Mass/Vol] 0.013 ng/mL Normal <0.034 [facility] Comment on above: Result Comment: BINA Olivarez COMMENTS:Patients with high levels of Biotin oral intake (ie >5 mg/day) may have falsely decreased Troponin levels. Performed By: #### L AB17, RQN208, GUE689, [id number], MLK585 ####Doughnut Dough Mixer: MARY SOTELO ([id number])[facility] ([address] Triglycerideson 07-26-2024 Triglyceride [Mass/Vol] 103 mg/dL Normal [facility] Comment on above: Order Comment: Comme nts: DC when propofol is d/c'dDC when propofol is d/c'd Result Comment: The drugs N-Acetylcysteine and Metamizole may falselydepress this assay.Serum Triglycerides Reference Interval Normal <150 mg/dL Borderline high 150 - 199 mg/dL High 200 - 499 mg/dL Very High > or = 500 mg/dL Performed By: #### L 501.3620, L501.5000 ####[facility] [address] [place], [address] XR ABDOMEN 1 VIEWon 07-26-20 XR ABDOMEN 1 VIEW Normal [facility] XR CHEST 1 VIEWon 07-26-2024 XR CHEST 1 VIEW [facility] Basic Metabolic Profile (BMP )on 07-25-2024 BUN/CRE 13.8 RATIO Normal 10-20 [facility] Comment on above: Performed By: #### L 500.2500 ####[facility] [address] [place], [address] CA,Total 5.7 mg/dL Invalid Interpretation Code 8.5-10.1 [facility] Comment on above: Result Comment: Crit ical Result(s) Called at: 07:31:06 07/25/2024 by: Hannah Velazquez RN ([facility]). Results read back by same. Performed By: #### L 500.2500 ####[facility] [address] [place], [address] Chloride [Moles/Vol] 97 mmol/L Low 98-107 [facility] Comment on above: Performed By: #### L 500.2500 ####[facility] [address] [place], [address] CO2 [Moles/Vol] 23.0 mmol/L Normal 21.0-32.0 [facility] Comment on above: Performed By: #### L 500.2500 ####[facility] [address] [place], [address] Creatinine [Mass/Vol] 3.77 mg/dL High 0.55-1.02 [facility] Comment on above: Result Comment: The validity of the calculated GFR GFRAA in patients over70 years has not been determined. Clinical correlation isessential. Performed By: #### L 500.2500 ####[facility] [address] [place], [address] ECRCL 11.47 ml/min Normal [facility] Comment on above: Performed By: #### L 500.2500 ####[facility] [address] [place], [address] EST GFR - AA 16 mL/min Low >60 [facility] Comment on above: Result Comment: Afri can [place] GFR Calc Performed By: #### L 500.2500 ####[facility] [address] [place], [address] GAP 10 Normal 5-15 [facility] Comment on above: Performed By: #### L 500.2500 ####[facility] [address] [place], [address] GFR/1.73 sq M.predicted among non-blacks MDRD (S/P/Bld) [Vol rate/Area] 13 mL/min/{1.73_m2} Low >60 [facility] Comment on above: Result Comment: Non- GFR Calc Performed By: #### L 500.2500 ####[facility] [address] [place], [address] Glucose [Mass/Vol] 275 mg/dL High 74-106 [facility] Comment on above: Result Comment: Gluc ose result greater than or equal to 200 mg/dLsuggests DIABETES MELLITUS per A.D.A. criteria. Performed By: #### L 500.2500 ####[facility] [address] [place], [address] Potassium [Moles/Vol] 5.1 mmol/L Normal 3.5-5.1 [facility] Comment on above: Performed By: #### L 500.2500 ####[facility] [address] [place], [address] Sodium [Moles/Vol] 130 mmol/L Low 136-145 [facility] Comment on above: Performed By: #### L 500.2500 ####[facility] [address] [place], [address] Urea nitrogen [Mass/Vol] 52 mg/dL High 7-18 [facility] Comment on above: Performed By: #### L 500.2500 ####[facility] [address] [place], [address] Bedside Glucoseon 07-25-2024 FINGERSTICK GLU 249 mg/dL High 74-106 [facility] Comment on above: Result Comment: SHELLY GEMENT OF PATIENT CARE PER NURSING PROTOCOL Performed By: #### L 501.080 ####[facility] [address] [place], [address] FINGERSTICK GLU 140 mg/dL High -[address] [place] [address] Comment on above: Result Comment: SHELLY GEMENT OF PATIENT CARE PER NURSING PROTOCOL Performed By: #### L 501.080 ####[facility] [address] [place], [address] FINGERSTICK GLU 270 mg/dL High 74-106 [facility] Comment on above: Result Comment: SHELLY GEMENT OF PATIENT CARE PER NURSING PROTOCOL Performed By: #### L 501.080 ####[facility] [address] [place], [address] CBC W/Diff, Automatedon 09-12 05-2023 Absolute Lymph 1.26 X10 3/uL Normal 0.83-4.51 [facility] Comment on above: Performed By: #### L 100.0100 ####[facility] [address] [place], [address] Absolute Neut 7.1 X10 3/uL Normal 2.0-7.7 [facility] Comment on above: Performed By: #### L 100.0100 ####[facility] [address] [place], [address] Basophils/100 WBC (Bld) 0.2 % Normal 0-1 [facility] Comment on above: Performed By: #### L 100.0100 ####[facility] [address] [place], [address] Eosinophils/100 WBC (Bld) 0.6 % Normal 0-5 [facility] Comment on above: Performed By: #### L 100.0100 ####[facility] [address] [place], [address] Erythrocyte distribution width (RBC) [Ratio] 15.1 % High 11.6-14.6 [facility] Comment on above: Performed By: #### L 100.0100 ####[facility] [address] [place], [address] Hematocrit (Bld) [Volume fraction] 26.8 % Low 37-47 [facility] Comment on above: Performed By: #### L 100.0100 ####[facility] [address] [place], [address] Hemoglobin (Bld) [Mass/Vol] 8.0 g/dL Low 12.0-15.0 [facility] Comment on above: Performed By: #### L 100.0100 ####[facility] [address] [place], [address] IG% 0.800 Normal 0.0-0.9 [facility] Comment on above: Result Comment: IG% - Immature Granulocytes (promyelocytes, myelocytes andmetamyelocytes) > 1% indicates that a LEFT SHIFT is Present. Performed By: #### L 100.0100 ####[facility] [address] [place], [id number] Lymphocytes/100 WBC (Bld) 13.5 % Low 19-41 [facility] Comment on above: Performed By: #### L 100.0100 ####[facility] [address] [place], [address] MCH (RBC) [Entitic mass] 28.5 pg Normal 27.0-32.0 [facility] Comment on above: Performed By: #### L 100.0100 ####[facility] [address] [place], [address] MCHC (RBC) [Mass/Vol] 29.9 g/dL Low 32-36 [facility] Comment on above: Performed By: #### L 100.0100 ####[facility] [address] [place], [id number] MCV (RBC) [Entitic vol] 95.4 fL Normal 81-99 [facility] Comment on above: Performed By: #### L 100.0100 ####[facility] [address] [place], [id number] Monocytes/100 WBC (Bld) 9.1 % Normal 0-10 [facility] Comment on above: Performed By: #### L 100.0100 ####[facility] [address] [place], [address] Neutrophils/100 WBC (Bld) 75.8 % High 47-70 [facility] Comment on above: Performed By: #### L 100.0100 ####[facility] [address] [place], [address] Nucleated RBC (Bld) [#/Vol] 0.3 10*3/uL Normal 0-5 [facility] Comment on above: Performed By: #### L 100.0100 ####[facility] [address] [place], [id number] Platelet mean volume (Bld) [Entitic vol] 11.0 fL Normal 6.2-12.0 [facility] Comment on above: Performed By: #### L 100.0100 ####[facility] [address] [place], [id number] Platelets (Bld) [#/Vol] 204 10*3/uL Normal 150-450 [facility] Comment on above: Performed By: #### L 100.0100 ####[facility] [address] [place], [address] RBC (Bld) [#/Vol] 2.81 10*6/uL Low 4.2-5.4 [facility] Comment on above: Performed By: #### L 100.0100 ####[facility] [address] [place], [id number] RDW SD 53.3 fl High 35.1-43.9 [facility] Comment on above: Performed By: #### L 100.0100 ####[facility] [address] [place], [address] WBC (Bld) [#/Vol] 9.3 10*3/uL Normal 4.4-11.0 [facility] Comment on above: Performed By: #### L 100.0100 ####[facility] [address] [place], [id number] HH, Hemoglobin AND Hematocri ton 07-25-2024 Hematocrit (Bld) [Volume fraction] 28.5 % Low 37-47 [facility] Comment on above: Performed By: #### L 100.0600 ####[facility] [address] [place], [address] Hemoglobin (Bld) [Mass/Vol] 8.7 g/dL Low 12.0-15.0 [facility] Comment on above: Performed By: #### L 100.0600 ####[facility] [address] [place], [address] 12 Lead EKGon 07-24-2024 12 Lead EKG Normal [facility] BNP,B-Type NATRIURETIC PEPTI Rinku 07-24-2024 Natriuretic peptide B (Bld) [Mass/Vol] 2478.5 pg/mL High 0-100 [facility] Comment on above: Performed By: #### L 503.6030, L501.2300, L501.3620, L509.7000, L101.9900, L501.5200, L503.6550, L501.6710, L504.2610, L503.6620, L300.8000 ####[facility] [address] [place], [address] Basic Metabolic Profile (BMP )on 07-24-2024 BUN Normal 7-18 [facility] Comment on above: Result Comment: Canc elled via OM: Order edited - Discontinuing original order Performed By: #### L 500.2500 ####[facility] [address] [place], [address] BUN/CRE Normal 10-20 [facility] Comment on above: Result Comment: Canc elled via OM: Order edited - Discontinuing original order Performed By: #### L 500.2500 ####[facility] [address] [place], [address] CA,Total Normal 8.5-10.1 [facility] Comment on above: Result Comment: Canc elled via OM: Order edited - Discontinuing original order Performed By: #### L 500.2500 ####[facility] [address] [place], [address] CL Normal 98-107 [facility] Comment on above: Result Comment: Canc elled via OM: Order edited - Discontinuing original order Performed By: #### L 500.2500 ####[facility] [address] [place], [address] CO2 Normal 21.0-32.0 [facility] Comment on above: Result Comment: Canc elled via OM: Order edited - Discontinuing original order Performed By: #### L 500.2500 ####[facility] [address] [place], [address] CREAT,SERUM Normal 0.55-1.02 [facility] Comment on above: Result Comment: Canc elled via OM: Order edited - Discontinuing original order Performed By: #### L 500.2500 ####[facility] [address] [place], [address] EST GFR Normal >60 [facility] Comment on above: Result Comment: Canc elled via OM: Order edited - Discontinuing original order Performed By: #### L 500.2500 ####[facility] [address] [place], [address] EST GFR - AA Normal >60 [facility] Comment on above: Result Comment: Canc elled via OM: Order edited - Discontinuing original order Performed By: #### L 500.2500 ####[facility] [address] [place], [address] GAP Normal 5-15 [facility] Comment on above: Result Comment: Canc elled via OM: Order edited - Discontinuing original order Performed By: #### L 500.2500 ####[facility] [address] [place], [address] GLU Normal 74-106 [facility] Comment on above: Result Comment: Canc elled via OM: Order edited - Discontinuing original order Performed By: #### L 500.2500 ####[facility] [address] [place], [address] Potassium Normal 3.5-5.1 [facility] Comment on above: Result Comment: Can elled via OM: Order edited - Discontinuing original order Performed By: #### L 500.2500 ####[facility] [address] [place], [address] Basic Metabolic Profile (BMP) Normal 136-145 [facility] Comment on above: Result Comment: Canc elled via OM: Order edited - Discontinuing original order Performed By: #### L 500.2500 ####[facility] [address] [place], [address] BUN/CRE 14.2 RATIO Normal 10-20 [facility] Comment on above: Performed By: #### L 500.2500 ####[facility] [address] [place], [address] CA,Total 5.5 mg/dL Invalid Interpretation Code 8.5-10.1 [facility] Comment on above: Performed By: #### L 500.2500 ####[facility] [address] [place], [address] Chloride [Moles/Vol] 103 mmol/L Normal 98-107 [facility] Comment on above: Performed By: #### L 500.2500 ####[facility] [address] [place], [address] CO2 [Moles/Vol] 24.0 mmol/L Normal 21.0-32.0 [facility] Comment on above: Performed By: #### L 500.2500 ####[facility] [address] [place], [address] Creatinine [Mass/Vol] 3.65 mg/dL High 0.55-1.02 [facility] Comment on above: Result Comment: The validity of the calculated GFR GFRAA in patients over70 years has not been determined. Clinical correlation isessential. Performed By: #### L 500.2500 ####[facility] [address] [place], [address] ECRCL 11.92 ml/min Normal [facility] Comment on above: Performed By: #### L 500.2500 ####[facility] [address] [place], [address] EST GFR - AA 16 mL/min Low >60 [facility] Comment on above: Result Comment: Afri can [place] GFR Calc Performed By: #### L 500.2500 ####[facility] [address] [place], [address] GAP 8 Normal 5-15 [facility] Comment on above: Performed By: #### L 500.2500 ####[facility] [address] [place], [address] GFR/1.73 sq M.predicted among non-blacks MDRD (S/P/Bld) [Vol rate/Area] 13 mL/min/{1.73_m2} Low >60 [facility] Comment on above: Result Comment: Non- GFR Calc Performed By: #### L 500.2500 ####[facility] [address] [place], [address] Glucose [Mass/Vol] 215 mg/dL High 74-106 [facility] Comment on above: Result Comment: Gluc ose result greater than or equal to 200 mg/dLsuggests DIABETES MELLITUS per A.D.A. criteria. Performed By: #### L 500.2500 ####[facility] [address] [place], [address] Potassium [Moles/Vol] 5.2 mmol/L High 3.5-5.1 [facility] Comment on above: Performed By: #### L 500.2500 ####[facility] [address] [place], [address] Sodium [Moles/Vol] 135 mmol/L Low 136-145 [facility] Comment on above: Performed By: #### L 500.2500 ####[facility] [address] [place], [address] Urea nitrogen [Mass/Vol] 52 mg/dL High 7-18 [facility] Comment on above: Performed By: #### L 500.2500 ####[facility] [address] [place], [address] Bedside Glucoseon 07-24-2024 FINGERSTICK GLU 239 mg/dL High 74-106 [facility] Comment on above: Result Comment: SHELLY GEMENT OF PATIENT CARE PER NURSING PROTOCOL Performed By: #### L 501.080 ####[facility] [address] [place], [address] FINGERSTICK GLU 281 mg/dL High 74-106 [facility] Comment on above: Result Comment: SHELLY GEMENT OF PATIENT CARE PER NURSING PROTOCOL Performed By: #### L 501.080 ####[facility] [address] [place], [address] FINGERSTICK GLU 287 mg/dL High 74-106 [facility] Comment on above: Result Comment: SHELLY GEMENT OF PATIENT CARE PER NURSING PROTOCOL Performed By: #### L 501.080 ####[facility] [address] [place], [address] FINGERSTICK GLU 193 mg/dL High 74-106 [facility] Comment on above: Result Comment: SHELLY GEMENT OF PATIENT CARE PER NURSING PROTOCOL Performed By: #### L 501.080 ####[facility] [address] [place], [address] FINGERSTICK GLU 337 mg/dL High 74-106 [facility] Comment on above: Result Comment: SHELLY GEMENT OF PATIENT CARE PER NURSING PROTOCOL Performed By: #### L 501.080 ####[facility] [address] [place], [address] FINGERSTICK GLU 177 mg/dL High 74-106 [facility] Comment on above: Result Comment: SHELLY GEMENT OF PATIENT CARE PER NURSING PROTOCOL Performed By: #### L 501.080 ####[facility] [address] [place], [address] FINGERSTICK GLU 225 mg/dL High 74-106 [facility] Comment on above: Result Comment: SHELLY GEMENT OF PATIENT CARE PER NURSING PROTOCOL Performed By: #### L 501.080 ####[facility] [address] [place], [address] CBC W/Diff, Automatedon 07-05 Absolute Lymph 0.47 X10 3/uL Low 0.83-4.51 [facility] Comment on above: Performed By: #### L 501.9985, L506.1000, L100.0100, L500.4050, L509.1000, L3300.0960 ####[facility] [address] [place], [address] Absolute Neut 6.3 X10 3/uL Normal 2.0-7.7 [facility] Comment on above: Performed By: #### L 501.9985, L506.1000, L100.0100, L500.4050, L509.1000, L3300.0960 ####[facility] [address] [place], [address] Basophils/100 WBC (Bld) 0.7 % Normal 0-1 [facility] Comment on above: Performed By: #### L 501.9985, L506.1000, L100.0100, L500.4050, L509.1000, L3300.0960 ####[facility] [address] [place], [address] Eosinophils/100 WBC (Bld) 1.6 % Normal 0-5 [facility] Comment on above: Performed By: #### L 501.9985, L506.1000, L100.0100, L500.4050, L509.1000, L3300.0960 ####[facility] [address] [place], [address] Erythrocyte distribution width (RBC) [Ratio] 14.9 % High 11.6-14.6 [facility] Comment on above: Performed By: #### L 501.9985, L506.1000, L100.0100, L500.4050, L509.1000, L3300.0960 ####[facility] [address] [place], [address] Hematocrit (Bld) [Volume fraction] 29.4 % Low 37-47 [facility] Comment on above: Performed By: #### L 501.9985, L506.1000, L100.0100, L500.4050, L509.1000, L3300.0960 ####[facility] [address] [place], [address] Hemoglobin (Bld) [Mass/Vol] 8.6 g/dL Low 12.0-15.0 [facility] Comment on above: Performed By: #### L 501.9985, L506.1000, L100.0100, L500.4050, L509.1000, L3300.0960 ####[facility] [address] [place], [address] IG% 2.100 High 0.0-0.9 [facility] Comment on above: Result Comment: IG% - Immature Granulocytes (promyelocytes, myelocytes andmetamyelocytes) > 1% indicates that a LEFT SHIFT is Present. Performed By: #### L 501.9985, L506.1000, L100.0100, L500.4050, L509.1000, L3300.0960 ####[facility] [address] [place], [address] Lymphocytes/100 WBC (Bld) 6.5 % Low 19-41 [facility] Comment on above: Performed By: #### L 501.9985, L506.1000, L100.0100, L500.4050, L509.1000, L3300.0960 ####[facility] [address] [place], [address] MCH (RBC) [Entitic mass] 28.2 pg Normal 27.0-32.0 [facility] Comment on above: Performed By: #### L 501.9985, L506.1000, L100.0100, L500.4050, L509.1000, L3300.0960 ####[facility] [address] [place], [address] MCHC (RBC) [Mass/Vol] 29.3 g/dL Low 32-36 [facility] Comment on above: Performed By: #### L 501.9985, L506.1000, L100.0100, L500.4050, L509.1000, L3300.0960 ####[facility] [address] [place], [address] MCV (RBC) [Entitic vol] 96.4 fL Normal 81-99 [facility] Comment on above: Performed By: #### L 501.9985, L506.1000, L100.0100, L500.4050, L509.1000, L3300.0960 ####[facility] [address] [place], [address] Monocytes/100 WBC (Bld) 2.2 % Normal 0-10 [facility] Comment on above: Performed By: #### L 501.9985, L506.1000, L100.0100, L500.4050, L509.1000, L3300.0960 ####[facility] [address] [place], [address] Neutrophils/100 WBC (Bld) 86.9 % High 47-70 [facility] Comment on above: Performed By: #### L 501.9985, L506.1000, L100.0100, L500.4050, L509.1000, L3300.0960 ####[facility] [address] [place], [address] Nucleated RBC (Bld) [#/Vol] 0.3 10*3/uL Normal 0-5 [facility] Comment on above: Performed By: #### L 501.9985, L506.1000, L100.0100, L500.4050, L509.1000, L3300.0960 ####[facility] [address] [place], [address] Platelet mean volume (Bld) [Entitic vol] 10.3 fL Normal 6.2-12.0 [facility] Comment on above: Performed By: #### L 501.9985, L506.1000, L100.0100, L500.4050, L509.1000, L3300.0960 ####[facility] [address] [place], [address] Platelets (Bld) [#/Vol] 196 10*3/uL Normal 150-450 [facility] Comment on above: Performed By: #### L 501.9985, L506.1000, L100.0100, L500.4050, L509.1000, L3300.0960 ####[facility] [address] [place], [address] RBC (Bld) [#/Vol] 3.05 10*6/uL Low 4.2-5.4 [facility] Comment on above: Performed By: #### L 501.9985, L506.1000, L100.0100, L500.4050, L509.1000, L3300.0960 ####[facility] [address] [place], [address] RDW SD 52.3 fl High 35.1-43.9 [facility] Comment on above: Performed By: #### L 501.9985, L506.1000, L100.0100, L500.4050, L509.1000, L3300.0960 ####[facility] [address] [place], [address] WBC (Bld) [#/Vol] 7.3 10*3/uL Normal 4.4-11.0 [facility] Comment on above: Performed By: #### L 501.9985, L506.1000, L100.0100, L500.4050, L509.1000, L3300.0960 ####[facility] [address] [place], [address] CPK Total, Creatine Kinaseon 07-24-2024 CPK TOTAL 604 U/L High 26-192 [facility] Comment on above: Order Comment: Comme nts: May add to ED labsComments: add to ED labsComments: may add to ED labsmay add to ED labs Performed By: #### L 503.6030, L501.2300, L501.3620, L509.7000, L101.9900, L501.5200, L503.6550, L501.6710, L504.2610, L503.6620, L300.8000 ####[facility] [address] [place], [address] CRPon 07-24-2024 C-REACTIVE PROT 62.00 mg/L High 0.0-3.0 [facility] Comment on above: Order Comment: Comme nts: [...] L101.9900, L501.5200, L503.6550, L501.6710, L504.2610, L503.6620, L300.8000 ####[facility] [address] [place], [address] Calcium, Urine (Random)on Calcium Ur Hooper < 5.0 Normal Not Estab. [facility] Comment on above: Performed By: #### L 501.2240 ####[facility] [address] [place], [address] Comprehensive Metabolic Prof ilon 07-24-2024 Albumin [Mass/Vol] 2.9 g/dL Low 3.2-5.0 [facility] Comment on above: Performed By: #### L 501.9985, L506.1000, L100.0100, L500.4050, L509.1000, L3300.0960 ####[facility] [address] [place], [address] Albumin/Globulin [Mass ratio] 0.7 {ratio} Low 0.9-2.4 [facility] Comment on above: Performed By: #### L 501.9985, L506.1000, L100.0100, L500.4050, L509.1000, L3300.0960 ####[facility] [address] [place], [address] ALK P 78 U/L Normal 45-117 [facility] Comment on above: Performed By: #### L 501.9985, L506.1000, L100.0100, L500.4050, L509.1000, L3300.0960 ####[facility] [address] [place], [address] ALT [Catalytic activity/Vol] 17 U/L Normal 13-56 [facility] Comment on above: Performed By: #### L 501.9985, L506.1000, L100.0100, L500.4050, L509.1000, L3300.0960 ####[facility] [address] [place], [address] AST [Catalytic activity/Vol] 18 U/L Normal 15-37 [facility] Comment on above: Performed By: #### L 501.9985, L506.1000, L100.0100, L500.4050, L509.1000, L3300.0960 ####[facility] [address] [place], [address] Bilirubin [Mass/Vol] 0.40 mg/dL Normal 0.20-1.00 [facility] Comment on above: Result Comment: For patients on eltrombopag therapy, use of Dimension [place] TBIL is not recommended. Performed By: #### L 501.9985, L506.1000, L100.0100, L500.4050, L509.1000, L3300.0960 ####[facility] [address] [place], [address] BUN/CRE 12.2 RATIO Normal 10-20 [facility] Comment on above: Performed By: #### L 501.9985, L506.1000, L100.0100, L500.4050, L509.1000, L3300.0960 ####[facility] [address] [place], [address] CA,Total 5.7 mg/dL Invalid Interpretation Code 8.5-10.1 [facility] Comment on above: Result Comment: Crit ical Result(s) Called at: 11:08:06 07/24/2024 by: Hannah Deleon RN ([facility]). Results read back by same. Performed By: #### L 501.9985, L506.1000, L100.0100, L500.4050, L509.1000, L3300.0960 ####[facility] [address] [place], [address] Chloride [Moles/Vol] 103 mmol/L Normal 98-107 [facility] Comment on above: Performed By: #### L 501.9985, L506.1000, L100.0100, L500.4050, L509.1000, L3300.0960 ####[facility] [address] [place], [address] CO2 [Moles/Vol] 23.0 mmol/L Normal 21.0-32.0 [facility] Comment on above: Performed By: #### L 501.9985, L506.1000, L100.0100, L500.4050, L509.1000, L3300.0960 ####[facility] [address] [place], [address] Creatinine [Mass/Vol] 3.45 mg/dL High 0.55-1.02 [facility] Comment on above: Result Comment: The validity of the calculated GFR GFRAA in patients over70 years has not been determined. Clinical correlation isessential. Performed By: #### L 501.9985, L506.1000, L100.0100, L500.4050, L509.1000, L3300.0960 ####[facility] [address] [place], [address] ECRCL 12.61 ml/min Normal [facility] Comment on above: Performed By: #### L 501.9985, L506.1000, L100.0100, L500.4050, L509.1000, L3300.0960 ####[facility] [address] [place], [address] EST GFR - AA 17 mL/min Low >60 [facility] Comment on above: Result Comment: Afri can [place] GFR Calc Performed By: #### L 501.9985, L506.1000, L100.0100, L500.4050, L509.1000, L3300.0960 ####[facility] [address] [place], [address] GAP 8 Normal 5-15 [facility] Comment on above: Performed By: #### L 501.9985, L506.1000, L100.0100, L500.4050, L509.1000, L3300.0960 ####[facility] [address] [place], [address] GFR/1.73 sq M.predicted among non-blacks MDRD (S/P/Bld) [Vol rate/Area] 14 mL/min/{1.73_m2} Low >60 [facility] Comment on above: Result Comment: Non- GFR Calc Performed By: #### L 501.9985, L506.1000, L100.0100, L500.4050, L509.1000, L3300.0960 ####[facility] [address] [place], [address] Globulin (S) [Mass/Vol] 3.9 g/dL Normal 2.2-4.2 [facility] Comment on above: Performed By: #### L 501.9985, L506.1000, L100.0100, L500.4050, L509.1000, L3300.0960 ####[facility] [address] [place], [address] Glucose [Mass/Vol] 220 mg/dL High 74-106 [facility] Comment on above: Result Comment: Gluc ose result greater than or equal to 200 mg/dLsuggests DIABETES MELLITUS per A.D.A. criteria. Performed By: #### L 501.9985, L506.1000, L100.0100, L500.4050, L509.1000, L3300.0960 ####[facility] [address] [place], [address] Potassium [Moles/Vol] 6.2 mmol/L Invalid Interpretation Code 3.5-5.1 [facility] Comment on above: Result Comment: Crit ical Result(s) Called at: 11:08:06 07/24/2024 by: Hannah Deleon RN ([facility]). Results read back by same. Performed By: #### L 501.9985, L506.1000, L100.0100, L500.4050, L509.1000, L3300.0960 ####[facility] [address] [place], [address] Sodium [Moles/Vol] 134 mmol/L Low 136-145 [facility] Comment on above: Performed By: #### L 501.9985, L506.1000, L100.0100, L500.4050, L509.1000, L3300.0960 ####[facility] [address] [place], [address] T PROT 6.8 g/dL Normal 6.4-8.2 [facility] Comment on above: Performed By: #### L 501.9985, L506.1000, L100.0100, L500.4050, L509.1000, L3300.0960 ####[facility] [address] [place], [address] Urea nitrogen [Mass/Vol] 42 mg/dL High 7-18 [facility] Comment on above: Performed By: #### L 501.9985, L506.1000, L100.0100, L500.4050, L509.1000, L3300.0960 ####[facility] [address] [place], [address] Consultation - Nephrologyon 07-24-2024 Consultation - Nephrology Normal [facility] Creatinine, Urine (random)on 07-24-2024 UR CREAT 78.60 mg/dL Normal NO RANGE EST. [facility] Comment on above: Performed By: #### L 501.5500, L501.1200 ####[facility] [address] [place], [address] D-Dimer Quantitative (DVT/PE )on 09-21-2024 D-DIMER QUANT 2.82 FEU/ug/m Invalid Interpretation Code 0.27-0.49 [facility] Comment on above: Result Comment: D-Di vera ELEVATED (>0.49): Additional studies and clinicalassessments are indicated to conclude diagnosis of:Deep Vein Thrombosis (DVT) or Pulmonary Embolism (PE)CRITICAL VALUE CALLED TO VJTJAZAGL88/21/24 0038 Ana Rosa Andrew.RESULTS READ BACK BY SAME. Performed By: #### L 503.6030, L501.2300, L501.3620, L509.7000, L101.9900, L501.5200, L503.6550, L501.6710, L504.2610, L503.6620, L300.8000 ####[facility] [address] [place], [place], [id number] Erythrocyte Sed Rateon 07-24 SED RATE 21 mm/hr Normal 0-30 [facility] Comment on above: Performed By: #### L 503.6030, L501.2300, L501.3620, L509.7000, L101.9900, L501.5200, L503.6550, L501.6710, L504.2610, L503.6620, L300.8000 ####[facility] [address] [place], [place], [address] Ferritinon 07-24-2024 Ferritin [Mass/Vol] 106 ng/mL Normal 8-252 [facility] Comment on above: Order Comment: Comme nts: May add to ED labsComments: add to ED labsComments: may add to ED labsmay add to ED labs Performed By: #### L 503.6030, L501.2300, L501.3620, L509.7000, L101.9900, L501.5200, L503.6550, L501.6710, L504.2610, L503.6620, L300.8000 ####[facility] [address] [place], [place], [address] Hemoglobin A1con 07-24-2024 HbA1c (Bld) [Mass fraction] 5.7 % High 3.8-5.6 [facility] Comment on above: Result Comment: Norm al < 5.7 % Prediabetic 5.7 - 6.4 % Diabetic >or= 6.5 % Please note range changes. Performed By: #### L 501.9985, L506.1000, L100.0100, L500.4050, L509.1000, L3300.0960 ####[facility] [address] [place], [address] Iron+Iron Binding Capacityon 07-24-2024 Iron [Mass/Vol] 24 ug/dL Low 50-170 [facility] Comment on above: Order Comment: Comme nts: May add to ED labsComments: add to ED labsComments: may add to ED labsmay add to ED labs Performed By: #### L 503.6030, L501.2300, L501.3620, L509.7000, L101.9900, L501.5200, L503.6550, L501.6710, L504.2610, L503.6620, L300.8000 ####[facility] [address] [place], [place], [phone](777) IRON SATURATION 10.3 Low 15.0-55.0 [facility] Comment on above: Order Comment: Comme nts: May add to ED labsComments: add to ED labsComments: may add to ED labsmay add to ED labs Performed By: #### L 503.6030, L501.2300, L501.3620, L509.7000, L101.9900, L501.5200, L503.6550, L501.6710, L504.2610, L503.6620, L300.8000 ####[facility] [address] [place], [address] TIBC 233 ug/dL Low 250-450 [facility] Comment on above: Order Comment: Comme nts: May add to ED labsComments: add to ED labsComments: may add to ED labsmay add to ED labs Performed By: #### L 503.6030, L501.2300, L501.3620, L509.7000, L101.9900, L501.5200, L503.6550, L501.6710, L504.2610, L503.6620, L300.8000 ####[facility] [address] [place], [address] Kidney and Bladderon 024 Kidney and Bladder Normal [facility] L501.2276on 07-24-2024 Ionized Calcium 3.39 mg/dL Low 4.36-5.20 [facility] Comment on above: Performed By: #### L 501.7123 ####[facility] [address] [place], [address] LDHon 07-24-2024 LDH 334 U/L High 84-246 [facility] Comment on above: Order Comment: Comme nts: May add to ED labsComments: add to ED labsComments: may add to ED labsmay add to ED labs Performed By: #### L 503.6030, L501.2300, L501.3620, L509.7000, L101.9900, L501.5200, L503.6550, L501.6710, L504.2610, L503.6620, L300.8000 ####[facility] [address] [place], [address] Liver Profileon 07-24-2024 Albumin [Mass/Vol] 2.7 g/dL Low 3.2-5.0 [facility] Comment on above: Performed By: #### L 500.3400 ####[facility] [address] [place], [address] ALK P 75 U/L Normal 45-117 [facility] Comment on above: Performed By: #### L 500.3400 ####[facility] [address] [place], [address] ALT [Catalytic activity/Vol] 17 U/L Normal 13-56 [facility] Comment on above: Performed By: #### L 500.3400 ####[facility] [address] [place], [address] AST [Catalytic activity/Vol] 17 U/L Normal 15-37 [facility] Comment on above: Performed By: #### L 500.3400 ####[facility] [address] [place], [address] Bilirubin [Mass/Vol] 0.20 mg/dL Normal 0.20-1.00 [facility] Comment on above: Result Comment: For patients on eltrombopag therapy, use of Dimension [place] TBIL is not recommended. Performed By: #### L 500.3400 ####[facility] [address] [place], [address] Bilirubin.direct [Mass/Vol] 0.10 mg/dL Normal 0.00-0.30 [facility] Comment on above: Performed By: #### L 500.3400 ####[facility] [address] [place], [address] Globulin (S) [Mass/Vol] 3.7 g/dL Normal 2.2-4.2 [facility] Comment on above: Performed By: #### L 500.3400 ####[facility] [address] [place], [address] T PROT 6.4 g/dL Normal 6.4-8.2 [facility] Comment on above: Performed By: #### L 500.3400 ####[facility] [address] [place], [address] [id number] 07-24-2024 M100.678 Normal [facility] Comment on above: Performed By: #### M 100.678 ####[facility] [address] [place], [address] Magnesiumon 07-24-2024 Magnesium [Mass/Vol] 1.6 mg/dL Normal 1.6-2.6 [facility] Comment on above: Order Comment: Comme nts: May add to ED labsComments: add to ED labsComments: may add to ED labsmay add to ED labs Performed By: #### L 503.6030, L501.2300, L501.3620, L509.7000, L101.9900, L501.5200, L503.6550, L501.6710, L504.2610, L503.6620, L300.8000 ####[facility] [address] [place], [address] PTHINon 07-24-2024 PTH 1027.8 pg/mL High 18.4-80.1 [facility] Comment on above: Performed By: #### L 501.9985, L506.1000, L100.0100, L500.4050, L509.1000, L3300.0960 ####[facility] [address] [place], [address] Phosphoruson 07-24-2024 Phosphate [Mass/Vol] 5.0 mg/dL High 2.5-4.9 [facility] Comment on above: Order Comment: Comme nts: May add to ED labsComments: add to ED labsComments: may add to ED labsmay add to ED labs Performed By: #### L 503.6030, L501.2300, L501.3620, L509.7000, L101.9900, L501.5200, L503.6550, L501.6710, L504.2610, L503.6620, L300.8000 ####[facility] [address] [place], [address] Procalcitoninon 07-24-2024 Procalcitonin 0.11 ng/mL High 0.00-0.09 [facility] Comment on above: Result Comment: A pr [...] L101.9900, L501.5200, L503.6550, L501.6710, L504.2610, L503.6620, L300.8000 ####[facility] [address] [place], [place], [address] Stool Occult Blood iFOBon STOB Positive Normal [facility] Comment on above: Performed By: #### M 100.7900 ####[facility] [address] [place], [place], [address] Type AND Screenon 07-24-2024 Ab SCREEN GEL TNP Normal [facility] Comment on above: Order Comment: CMV N EG? NNumber of units to transfuse: 1Is pt's Hgb is = to 7.0 mg/dl or Hct </= 21%? YReason for Ordering Blood: ChronicAre the blood/blood products to be transfused? YIs the patient having/had surgery? NHas pt arrived? YWhen ReadyNY Result Comment: AMENDED REPORT 07/24/24 0141: Antibody Screen previously reported as:NEGATIVE Performed By: #### B SATHYA, BTS, [id number] ####[facility] [address] [place], [address] Urinalysis, Completeon 07-24 BACTERIA 1+ /hpf Normal None Seen [facility] Comment on above: Order Comment: CLEAN CATCH Performed By: #### L 400.0001 ####[facility] [address] [place], [address] WBC 0-5 SEEN Normal 0-5 [facility] Comment on above: Order Comment: CLEAN CATCH Performed By: #### L 400.0001 ####[facility] [address] [place], [address] Urine Sodiumon 07-24-2024 Sodium (U) [Moles/Vol] 23 mmol/L Normal Not Establ. [facility] Comment on above: Performed By: #### L 501.5500, L501.1200 ####[facility] [address] [place], [address] Vitamin D,25 Hydroxyon 07-24 Vitamin D 25-OH 11.5 ng/mL Normal [facility] Comment on above: Result Comment: Greta min D 25(OH) Status Range Deficiency <20 ng/mL (50nmol/L) Insufficiency 20 - 30 ng/mL (50 - 75 nmol/L) Sufficiency 30 - 100 ng/mL (75 - 250 nmol/L) Toxicity >100 ng/mL (>250 nmol/L) Performed By: #### L 501.9985, L506.1000, L100.0100, L500.4050, L509.1000, L3300.0960 ####[facility] [address] [place], [address] 12 Lead EKGon 07-23-2024 12 Lead EKG Normal [facility] BRCon 07-23-2024 RC Normal [facility] Comment on above: Result Comment: [id number] OP RC TRANSFUSED 07/26/24 [id number] OP RC TRANSFUSED 07/26/24 0424 Performed By: #### B RC ####[facility] [address] [place], [address] Result Comment: [id number] OP RC TRANSFUSED 07/24/24 0306 Performed By: #### B RC, BTS, [id number] ####[facility] [address] [place], [address] Basic Metabolic Profile (BMP )on 07-23-2024 BUN/CRE 12.0 RATIO Normal 10-20 [facility] Comment on above: Order Comment: 'TROP ' Serial specimen #1, #2 or #3: 1 Performed By: #### L 100.0100, L500.2500, L501.4020 ####[facility] [address] [place], [address] CA,Total 5.4 mg/dL Invalid Interpretation Code 8.5-10.1 [facility] Comment on above: Order Comment: 'TROP ' Serial specimen #1, #2 or #3: 1 Result Comment: Crit ical Result(s) Called at: 23:18:14 07/23/2024 by:Ana Rosa Andrew to LSparr. Results read back by same. Performed By: #### L 100.0100, L500.2500, L501.4020 ####[facility] [address] [place], [address] Chloride [Moles/Vol] 101 mmol/L Normal 98-107 [facility] Comment on above: Order Comment: 'TROP ' Serial specimen #1, #2 or #3: 1 Performed By: #### L 100.0100, L500.2500, L501.4020 ####[facility] [address] [place], [address] CO2 [Moles/Vol] 29.0 mmol/L Normal 21.0-32.0 [facility] Comment on above: Order Comment: 'TROP ' Serial specimen #1, #2 or #3: 1 Performed By: #### L 100.0100, L500.2500, L501.4020 ####[facility] [address] [place], [address] Creatinine [Mass/Vol] 3.66 mg/dL High 0.55-1.02 [facility] Comment on above: Order Comment: 'TROP ' Serial specimen #1, #2 or #3: 1 Result Comment: The validity of the calculated GFR GFRAA in patients over70 years has not been determined. Clinical correlation isessential. Performed By: #### L 100.0100, L500.2500, L501.4020 ####[facility] [address] [place], [address] EST GFR - AA 16 mL/min Low >60 [facility] Comment on above: Order Comment: 'TROP ' Serial specimen #1, #2 or #3: 1 Result Comment: Afri can [place] GFR Calc Performed By: #### L 100.0100, L500.2500, L501.4020 ####[facility] [address] [place], [address] GAP 4 Low 5-15 [facility] Comment on above: Order Comment: 'TROP ' Serial specimen #1, #2 or #3: 1 Performed By: #### L 100.0100, L500.2500, L501.4020 ####[facility] [address] [place], [address] GFR/1.73 sq M.predicted among non-blacks MDRD (S/P/Bld) [Vol rate/Area] 13 mL/min/{1.73_m2} Low >60 [facility] Comment on above: Order Comment: 'TROP ' Serial specimen #1, #2 or #3: 1 Result Comment: Non- GFR Calc Performed By: #### L 100.0100, L500.2500, L501.4020 ####[facility] [address] [place], [address] Glucose [Mass/Vol] 146 mg/dL High 74-106 [facility] Comment on above: Order Comment: 'TROP ' Serial specimen #1, #2 or #3: 1 Result Comment: Fast ing Glucose result greater than or equal to 126 mg/dLsuggests DIABETES MELLITUS per A.D.A. criteria. Performed By: #### L 100.0100, L500.2500, L501.4020 ####[facility] [address] [place], [address] Potassium [Moles/Vol] 5.4 mmol/L High 3.5-5.1 [facility] Comment on above: Order Comment: 'TROP ' Serial specimen #1, #2 or #3: 1 Performed By: #### L 100.0100, L500.2500, L501.4020 ####[facility] [address] [place], [address] Sodium [Moles/Vol] 134 mmol/L Low 136-145 [facility] Comment on above: Order Comment: 'TROP ' Serial specimen #1, #2 or #3: 1 Performed By: #### L 100.0100, L500.2500, L501.4020 ####[facility] [address] [place], [address] Urea nitrogen [Mass/Vol] 44 mg/dL High 7-18 [facility] Comment on above: Order Comment: 'TROP ' Serial specimen #1, #2 or #3: 1 Performed By: #### L 100.0100, L500.2500, L501.4020 ####[facility] [address] [place], [address] Bedside Glucoseon 07-23-2024 FINGERSTICK GLU 120 mg/dL High 74-106 [facility] Comment on above: Result Comment: SHELLY ENGEL OF PATIENT CARE PER NURSING PROTOCOL Performed By: #### L 501.080 ####[facility] [address] [place], [address] FINGERSTICK GLU 163 mg/dL High 74-106 [facility] Comment on above: Result Comment: SHELLY ENGEL OF PATIENT CARE PER NURSING PROTOCOL Performed By: #### L 501.080 ####[facility] [address] [place], [address] CBC W/Diff, Automatedon 09-2 0-2023 Absolute Lymph 1.37 X10 3/uL Normal 0.83-4.51 [facility] Comment on above: Performed By: #### L 100.0100, L500.2500, L501.4020 ####[facility] [address] [place], [address] Absolute Neut 4.2 X10 3/uL Normal 2.0-7.7 [facility] Comment on above: Performed By: #### L 100.0100, L500.2500, L501.4020 ####[facility] [address] [place], [address] Basophils/100 WBC (Bld) 0.5 % Normal 0-1 [facility] Comment on above: Performed By: #### L 100.0100, L500.2500, L501.4020 ####[facility] [address] [place], [address] Eosinophils/100 WBC (Bld) 4.6 % Normal 0-5 [facility] Comment on above: Performed By: #### L 100.0100, L500.2500, L501.4020 ####[facility] [address] [place], [address] Erythrocyte distribution width (RBC) [Ratio] 13.5 % Normal 11.6-14.6 [facility] Comment on above: Performed By: #### L 100.0100, L500.2500, L501.4020 ####[facility] [address] [place], [address] Hematocrit (Bld) [Volume fraction] 24.0 % Low 37-47 [facility] Comment on above: Performed By: #### L 100.0100, L500.2500, L501.4020 ####[facility] [address] [place], [address] Hemoglobin (Bld) [Mass/Vol] 7.0 g/dL Low 12.0-15.0 [facility] Comment on above: Performed By: #### L 100.0100, L500.2500, L501.4020 ####[facility] [address] [place], [address] IG% 0.600 Normal 0.0-0.9 [facility] Comment on above: Result Comment: IG% - Immature Granulocytes (promyelocytes, myelocytes andmetamyelocytes) > 1% indicates that a LEFT SHIFT is Present. Performed By: #### L 100.0100, L500.2500, L501.4020 ####[facility] [address] [place], [address] Lymphocytes/100 WBC (Bld) 21.1 % Normal 19-41 [facility] Comment on above: Performed By: #### L 100.0100, L500.2500, L501.4020 ####[facility] [address] [place], [address] MCH (RBC) [Entitic mass] 28.3 pg Normal 27.0-32.0 [facility] Comment on above: Performed By: #### L 100.0100, L500.2500, L501.4020 ####[facility] [address] [place], [address] MCHC (RBC) [Mass/Vol] 29.2 g/dL Low 32-36 [facility] Comment on above: Performed By: #### L 100.0100, L500.2500, L501.4020 ####[facility] [address] [place], [address] MCV (RBC) [Entitic vol] 97.2 fL Normal 81-99 [facility] Comment on above: Performed By: #### L 100.0100, L500.2500, L501.4020 ####[facility] [address] [place], [address] Monocytes/100 WBC (Bld) 7.7 % Normal 0-10 [facility] Comment on above: Performed By: #### L 100.0100, L500.2500, L501.4020 ####[facility] [address] [place], [address] Neutrophils/100 WBC (Bld) 65.5 % Normal 47-70 [facility] Comment on above: Performed By: #### L 100.0100, L500.2500, L501.4020 ####[facility] [address] [place], [address] Nucleated RBC (Bld) [#/Vol] 0 10*3/uL Normal 0-5 [facility] Comment on above: Performed By: #### L 100.0100, L500.2500, L501.4020 ####[facility] [address] [place], [address] Platelet mean volume (Bld) [Entitic vol] 10.2 fL Normal 6.2-12.0 [facility] Comment on above: Performed By: #### L 100.0100, L500.2500, L501.4020 ####[facility] [address] [place], [address] Platelets (Bld) [#/Vol] 182 10*3/uL Normal 150-450 [facility] Comment on above: Performed By: #### L 100.0100, L500.2500, L501.4020 ####[facility] [address] [place], [address] RBC (Bld) [#/Vol] 2.47 10*6/uL Low 4.2-5.4 [facility] Comment on above: Performed By: #### L 100.0100, L500.2500, L501.4020 ####[facility] [address] [place], [address] RDW SD 48.6 fl High 35.1-43.9 [facility] Comment on above: Performed By: #### L 100.0100, L500.2500, L501.4020 ####[facility] [address] [place], [address] WBC (Bld) [#/Vol] 6.5 10*3/uL Normal 4.4-11.0 [facility] Comment on above: Performed By: #### L 100.0100, L500.2500, L501.4020 ####[facility] [address] [place], [address] Chest PA and Lateralon 07-23 Chest PA and Lateral Normal [facility] Emergency Department Summary on 07-23-2024 Emergency Department Summary Normal [facility] H AND P Exam - Hospitaliston 07-23-2024 H&P Exam - Hospitalist Normal [facility] L501.4020on 07-23-2024 TROPONIN-I HS 30 pg/mL Normal 3.0-54.0 [facility] Comment on above: Order Comment: 'TROP ' Serial specimen #1, #2 or #3: 1 Result Comment: Plea se Note: New Test Units and Gender Specific Reference Ranges. For more information see Policy Stat Procedure [place] High Sensitivity Troponin (TNIH) and attachments. Performed By: #### L 100.0100, L500.2500, L501.4020 ####[facility] [address] [place], [address] Urinalysis, Completeon 07-23 EPI,SQUAMOUS 0 SEEN Normal 5-10 [facility] Comment on above: Order Comment: CLEAN CATCH Performed By: #### L 400.0001 ####[facility] [address] [place], [address] Mucus Ql (Urine sed) 0 SEEN Normal [facility] Comment on above: Order Comment: CLEAN CATCH Performed By: #### L 400.0001 ####[facility] [address] [place], [address] RBC 0 SEEN Normal 0-5 [facility] Comment on above: Order Comment: CLEAN CATCH Performed By: #### L 400.0001 ####[facility] [address] [place], [place], [address] Office Visit Reporton 2023 Office Visit Report Normal [facility] Basophil percentageOrdered B y: Christy Bradley on 01-15-2024 Basophil percentage 3.7 mg/dL 2.5-4.9 [facility] Bilirubin [Mass/Vol] 0.50 mg/dL 0.20-1.00 [facility] Comment on above: For patients on eltr ombopag therapy, use of Dimension [place] TBIL is not recommended. Chloride [Moles/Vol] 105 mmol/L 98-107 [facility] Cholesterol [Mass/Vol] 145 mg/dL <200 [facility] Comment on above: <200 mg/dL Desirable 200-240 mg/dL Borderline >240 mg/dL High Risk Glucose [Mass/Vol] 180 mg/dL 74-106 [facility] Comment on above: Fasting Glucose resu lt greater than or equal to 126 mg/dL suggests DIABETES MELLITUS per A.D.A. criteria. Hemoglobin (Bld) [Mass/Vol] 11.4 g/dL 12.0-15.0 [facility] Potassium [Moles/Vol] 4.8 mmol/L 3.5-5.1 [facility] Protein [Mass/Vol] 6.8 g/dL 6.4-8.2 [facility] Sodium [Moles/Vol] 140 mmol/L 136-145 [facility] Triglyceride [Mass/Vol] 132 mg/dL <199 [facility] Comment on above: The drugs N-Acetylcy steine and Metamizole may falsely depress this assay.Serum Triglycerides Reference Interval Normal <150 mg/dL Borderline high 150 - 199 mg/dL High 200 - 499 mg/dL Very High > or = 500 mg/dL WBC (Bld) [#/Vol] 6.9 10*3/uL 4.4-11.0 [facility] Determination of erythrocyte mean corpuscular volume (MCV)Ordered By: Christy Huerta on 01-15-2024 MCV (RBC) [Entitic vol] 95.9 fL 81-99 [facility] Direct bilirubinOrdered By: Christy Huerta on 01-15-2024 Bilirubin.direct [Mass/Vol] 0.10 mg/dL 0.00-0.30 [facility] Erythrocyte distribution wid th ratioOrdered By: Christy Huerta on 01-15-2024 Erythrocyte distribution width (RBC) [Ratio] 12.3 % 11.6-14.6 [facility] Erythrocyte distribution wid th standard deviationOrdered By: Christy Huerta on 01-15-2024 Erythrocyte distribution width (RBC) [Entitic vol] 43.2 fL 35.1-43.9 [facility] Hematocrit Auto (Bld) [Volum e fraction]Ordered By: Christy Huerta on 01-15-2024 Hematocrit (Bld) [Volume fraction] 37.6 % 37-47 [facility] Laboratory - Chemistry and C hemistry - challengeOrdered By: Christy Huerta on 01-15-2024 Albumin/Globulin [Mass ratio] 0.9 {ratio} 0.9-2.4 [facility] ALP [Catalytic activity/Vol] 82 U/L 45-117 [facility] ALT [Catalytic activity/Vol] 14 U/L 13-56 [facility] Cholesterol in HDL [Mass/Vol] 59 mg/dL >40 [facility] Comment on above: The drugs N-Acetylcy steine and Metamizole may falsely depress this assay. Reference Range HDL <40 mg/dL Low HDL Cholesterol HDL >or= 60 mg/dL High HDL Cholesterol Cholesterol in LDL [Mass/Vol] 60 mg/dL 0-130 [facility] CO2 [Moles/Vol] 31.0 mmol/L 21.0-32.0 [facility] Cobalamin (Vitamin B12) [Mass/Vol] 753 pg/mL 211-911 [facility] Globulin (S) [Mass/Vol] 3.5 g/dL 2.2-4.2 [facility] Urea nitrogen/Creatinine [Mass ratio] 11.8 mg/mg 10-20 [facility] Laboratory - Hematology and Cell countsOrdered By: Christy Huerta on 01-15-2024 MCH (RBC) [Entitic mass] 29.1 pg 27.0-32.0 [facility] MCHC (RBC) [Mass/Vol] 30.3 g/dL 32-36 [facility] Platelet mean volume (Bld) [Entitic vol] 10.6 fL 6.2-12.0 [facility] Platelets (Bld) [#/Vol] 188 10*3/uL 150-450 [facility] No Panel InformationOrdered By: Christy Huerta on 01-15-2024 Estimated GFR (MDRD) Amer 22 mL/min >60 [facility] Comment on above: GFR Calc Estimated GFR (MDRD) Non-Af Amer 18 mL/min >60 [facility] Comment on above: Non- GFR Calc Parathyroid Hormone (Intact) 137.2 pg/mL 18.4-80.1 [facility] VLDL Cholesterol 26 mg/dL 5-40 [facility] RBC Auto (Bld) [#/Vol]Ordere d By: Christy Huerta on 01-15-2024 RBC (Bld) [#/Vol] 3.92 10*6/uL 4.2-5.4 [facility] Serum or plasma calcium lesly urement (mass/volume)Ordered By: Christy Huerta on 01-15-2024 Calcium [Mass/Vol] 9.1 mg/dL 8.5-10.1 [facility] Serum or plasma creatinine m easurement (mass/volume)Ordered By: Christy Huerta on 01-15-2024 Creatinine [Mass/Vol] 2.79 mg/dL 0.55-1.02 [facility] Comment on above: The validity of the calculated GFR & GFRAA in patients over 70 years has not been determined. Clinical correlation is essential. Serum or plasma thyroid stim ulating hormone (TSH) measurement (units/volume)Ordered By: Christy Huerta on 03-14-2024 TSH Qn 2.34 uIU/mL 0.358-3.74 [facility] Serum or plasma urea nitroge n measurement (mass/volume)Ordered By: Christy Huerta on 01-15-2024 Urea nitrogen [Mass/Vol] 33 mg/dL 7-18 [facility] Thin prep Papanicolaou smear with manual screeningOrdered By: Christy Huerta on 01-15-2024 Thin prep Papanicolaou smear with manual screening 3.3 g/dL 3.2-5.0 [facility] Thin prep Papanicolaou smear with manual screening 16 U/L 15-37 [facility] Thin prep Papanicolaou smear with manual screening 4 5-15 [facility] Laboratory - Hematology and Cell countson 12-03-2023 HbA1c (Bld) [Mass fraction] 8.6 % 4.2-6.3 [facility] Basophil percentageOrdered B y: Christy Huerta on 11-18-2023 Basophil percentage 3.3 mg/dL 2.5-4.9 [facility] Chloride [Moles/Vol] 108 mmol/L 98-107 [facility] Glucose [Mass/Vol] 359 mg/dL 74-106 [facility] Comment on above: Glucose result great er than or equal to 200 mg/dLsuggests DIABETES MELLITUS per A.D.A. criteria. Potassium [Moles/Vol] 5.6 mmol/L 3.5-5.1 [facility] Sodium [Moles/Vol] 139 mmol/L 136-145 [facility] Laboratory - Chemistry and C hemistry - challengeOrdered By: Christy Huerta on 11-18-2023 CO2 [Moles/Vol] 27.0 mmol/L 21.0-32.0 [facility] Urea nitrogen/Creatinine [Mass ratio] 18.5 mg/mg 10-20 [facility] No Panel InformationOrdered By: Christy Huerta on 11-18-2023 Estimated GFR (MDRD) Amer 22 mL/min >60 [facility] Comment on above: GFR Calc Estimated GFR (MDRD) Non-Af Amer 19 mL/min >60 [facility] Comment on above: Non- GFR Calc Serum or plasma calcium lesly urement (mass/volume)Ordered By: Christy Huerta on 11-18-2023 Calcium [Mass/Vol] 8.8 mg/dL 8.5-10.1 [facility] Serum or plasma creatinine m easurement (mass/volume)Ordered By: Christy Huerta on 11-18-2023 Creatinine [Mass/Vol] 2.75 mg/dL 0.55-1.02 [facility] Comment on above: The validity of the calculated GFR & GFRAA in patients over 70 years has not been determined. Clinical correlation is essential. Serum or plasma urea nitroge n measurement (mass/volume)Ordered By: Christy Huerta on 11-18-2023 Urea nitrogen [Mass/Vol] 51 mg/dL 7-18 [facility] Thin prep Papanicolaou smear with manual screeningOrdered By: Christy Huerta on 11-18-2023 Thin prep Papanicolaou smear with manual screening 2.9 g/dL 3.2-5.0 [facility] Bacteria identified Respirat ory culture Nom (Unsp spec)Ordered By: Jeanna Davis on 10-29-2023 Respiratory Culture Pseudomonas aeruginosa [facility] Respiratory Culture Staphylococcus aureus [facility] Respiratory Culture Pseudomonas aeruginosa [facility] Respiratory Culture Staphylococcus aureus [facility] Gram stain for investigation of transfusion reactionOrdered By: Jeanna Davis on 10-29-2023 Microscopic observation Gram stain Nom (Unsp spec) [facility] Microscopic observation Gram stain Nom (Unsp spec) [facility] 24 hour urine protein measur ement (mass/time)Ordered By: Christy Huerta on 10-13-2023 Protein (24H U) [Mass/Time] 2213.8 mg/24HR 0-151 [facility] 24 hour urine protein measur ement (mass/volume)Ordered By: Christy Huerta on 10-13-2023 Protein (24H U) [Mass/Vol] 177.1 mg/dL 0.0-11.8 [facility] Creatinine clearanceOrdered By: Christy Huerta on 10-13-2023 Creatinine renal clearance Unsp time (U+S/P) [Vol/Time] 21 ml/min 100-200 [facility] Culture, urineOrdered By: Aashish Huerta on 10-13-2023 Bacteria identified Cx Nom (U) Culture exhibits no growth. [facility] Bacteria identified Cx Nom (U) Culture exhibits no growth. [facility] Laboratory - Specimen inform ationOrdered By: Christy Huerta on 10-13-2023 Collection duration (U) 24.0 HOURS 24.0-24.0 [facility] Comment on above: *Additional results available. Contact laboratory/see report* No Panel InformationOrdered By: Christy Huerta on 10-13-2023 Estimated GFR (MDRD) Amer 25 mL/min >60 [facility] Comment on above: GFR Calc Estimated GFR (MDRD) Non-Af Amer 21 mL/min >60 [facility] Comment on above: Non- GFR Calc Timed Urine Volume 1250 mL [facility] Comment on above: *Additional results available. Contact laboratory/see report* Thin prep Papanicolaou smear with manual screeningOrdered By: Christy Huerta on 10-13-2023 Creatinine (U) [Mass/Vol] 2.5 mg/dL 0.6-1.0 [facility] Urine creatinine measurement (mass/volume)Ordered By: Christy Huerta on 10-13-2023 Creatinine (U) [Mass/Vol] 61.4 mg/dL NO RANGE EST. [facility] [facility] Basophil percentageOrdered B y: Christy Huerta on 10-09-2023 Basophil percentage 10-25 SEEN /hpf 0-5 [facility] Bilirubin Test strip Ql (U)O rdered By: Christy Huerta on 10-09-2023 Bilirubin Ql (U) Negative Negative [facility] Ketones Test strip Ql (U)Ord ered By: Christy Huerta on 10-09-2023 Ketones Ql (U) Negative Negative [facility] Mucus LM Ql (Urine sed)Order ed By: Christy Huerta on 10-09-2023 Mucus Ql (Urine sed) 0 SEEN /hpf [facility] Nitrite Test strip Ql (U)Ord ered By: Christy Huerta on 10-09-2023 Nitrite Ql (U) Negative Negative [facility] Protein Test strip Ql (U)Ord ered By: Christy Huerta on 10-09-2023 Protein Ql (U) 100 mg/dl Negative [facility] Squamous epithelial cells de tection in urine sediment by light microscopyOrdered By: Christy Huerta on 10-09-2023 Epithelial cells.squamous LM Ql (Urine sed) 0-5 SEEN /hpf 5-10 [facility] Urine blood detectionOrdered By: Christy Huerta on 10-09-2023 RBC Ql (U) 10 /ul Negative [facility] RBC Ql (U) 0-5 SEEN /hpf 0-5 [facility] Urine clarityOrdered By: Malcolm Huerta on 10-09-2023 Clarity (U) Sl. Cloudy Clear [facility] Urine color determinationOrd ered By: Christy Huerta on 10-09-2023 Color (U) Yellow Yellow [facility] Urine glucose detectionOrder ed By: Christy Huerta on 10-09-2023 Glucose Ql (U) 250 mg/dl Normal [facility] Urine leukocyte esterase det ection by dipstickOrdered By: Christy Huerta on 10-09-2023 Leukocyte esterase Test strip Ql (U) 100 /ul Negative [facility] Urine pHOrdered By: Mary Huerta on 10-09-2023 pH (U) 5.0 [pH] 5.0 - 8.0 [facility] Urine sediment bacteria coun t by microscopy (number/high power field)Ordered By: Christy Huerta on 10-09-2023 Bacteria LM.HPF (Urine sed) [#/Area] 0 /[HPF] None Seen [facility] Urine specific gravity measu rementOrdered By: Christy Huerta on 10-09-2023 Specific gravity (U) [Rel density] 1.015 1.002-1.030 [facility] Urobilinogen Auto test strip Ql (U)Ordered By: Christy Huerta on 10-09-2023 Urobilinogen Ql (U) Normal mg/dl Normal [facility] Basophil percentageOrdered B y: Christy Huerta on 10-06-2023 Basophil percentage 2.9 mg/dL 2.5-4.9 [facility] Chloride [Moles/Vol] 104 mmol/L 98-107 [facility] Glucose [Mass/Vol] 273 mg/dL 74-106 [facility] Comment on above: Glucose result great er than or equal to 200 mg/dLsuggests DIABETES MELLITUS per A.D.A. criteria. Potassium [Moles/Vol] 4.8 mmol/L 3.5-5.1 [facility] Sodium [Moles/Vol] 139 mmol/L 136-145 [facility] WBC (Bld) [#/Vol] 10.3 10*3/uL 4.4-11.0 [facility] Blood erythrocytes count (nu mber/volume)Ordered By: Christy Huerta on 10-06-2023 RBC (Bld) [#/Vol] 3.48 10*6/uL 4.2-5.4 [facility] Blood hemoglobin measurement (mass/volume)Ordered By: Christy Huerta on 10-06-2023 Hemoglobin (Bld) [Mass/Vol] 10.5 g/dL 12.0-15.0 [facility] Blood platelet mean volumeOr dered By: Christy Huerta on 10-06-2023 Platelet mean volume (Bld) [Entitic vol] 10.5 fL 6.2-12.0 [facility] Determination of erythrocyte mean corpuscular volume (MCV)Ordered By: Christy Huerta on 10-06-2023 MCV (RBC) [Entitic vol] 99.1 fL 81-99 [facility] Hematocrit Auto (Bld) [Volum e fraction]Ordered By: Christy Huerta on 10-06-2023 Hematocrit (Bld) [Volume fraction] 34.5 % 37-47 [facility] Laboratory - Chemistry and C hemistry - challengeOrdered By: Christy Huerta on 10-06-2023 CO2 [Moles/Vol] 30.0 mmol/L 21.0-32.0 [facility] Urea nitrogen/Creatinine [Mass ratio] 13.7 mg/mg 10-20 [facility] Laboratory - Hematology and Cell countsOrdered By: Christy Huerta on 10-06-2023 Erythrocyte distribution width (RBC) [Entitic vol] 45.4 fL 35.1-43.9 [facility] Erythrocyte distribution width (RBC) [Ratio] 12.6 % 11.6-14.6 [facility] MCH (RBC) [Entitic mass] 30.2 pg 27.0-32.0 [facility] MCHC Auto (RBC) [Mass/Vol]Or dered By: Christy Huerta on 10-06-2023 MCHC (RBC) [Mass/Vol] 30.4 g/dL 32-36 [facility] No Panel InformationOrdered By: Christy Huerta on 10-06-2023 Estimated GFR (MDRD) Amer 26 mL/min >60 [facility] Comment on above: GFR Calc Estimated GFR (MDRD) Non-Af Amer 22 mL/min >60 [facility] Comment on above: Non- GFR Calc Parathyroid Hormone (Intact) 53.6 pg/mL 18.4-80.1 [facility] Platelets bldOrdered By: Malcolm tania Bradley on 10-06-2023 Platelets (Bld) [#/Vol] 180 10*3/uL 150-450 [facility] Serum or plasma albumin lesly urement (mass/volume)Ordered By: Christy Huerta on 10-06-2023 Albumin [Mass/Vol] 2.9 g/dL 3.2-5.0 [facility] Serum or plasma calcium lesly urement (mass/volume)Ordered By: Christy Huerta on 10-06-2023 Calcium [Mass/Vol] 9.1 mg/dL 8.5-10.1 [facility] Serum or plasma creatinine m easurement (mass/volume)Ordered By: Christy Huerta on 10-06-2023 Creatinine [Mass/Vol] 2.41 mg/dL 0.55-1.02 [facility] Comment on above: The validity of the calculated GFR & GFRAA in patients over 70 years has not been determined. Clinical correlation is essential. Serum or plasma urea nitroge n measurement (mass/volume)Ordered By: Christy Huerta on 10-06-2023 Urea nitrogen [Mass/Vol] 33 mg/dL 7-18 [facility] Urine creatinine measurement (mass/volume)Ordered By: Christy Huerta on 10-06-2023 Creatinine (U) [Mass/Vol] 65.00 mg/dL NO RANGE EST. [facility] Urine protein measurement (m ass/volume)Ordered By: Christy Huerta on 10-06-2023 Protein (U) [Mass/Vol] 229.6 mg/dL 0.0-11.8 [facility] Urine protein/creatinine mas s ratioOrdered By: Christy Huerta on 10-06-2023 Protein/Creatinine (U) [Mass ratio] 3532 mg/g CRE 0-200 [facility] Laboratory - Hematology and Cell countson 07-14-2023 HbA1c (Bld) [Mass fraction] 8.7 % 4.2-6.3 [facility] Basophil percentageOrdered B y: Christy Huerta on 06-19-2023 Basophil percentage 3.3 mg/dL 2.5-4.9 [facility] Chloride [Moles/Vol] 107 mmol/L 98-107 [facility] Glucose [Mass/Vol] 251 mg/dL 74-106 [facility] Comment on above: Glucose result great er than or equal to 200 mg/dLsuggests DIABETES MELLITUS per A.D.A. criteria. Potassium [Moles/Vol] 5.4 mmol/L 3.5-5.1 [facility] Sodium [Moles/Vol] 140 mmol/L 136-145 [facility] Laboratory - Chemistry and C hemistry - challengeOrdered By: Christy Huerta on 06-19-2023 CO2 [Moles/Vol] 32.0 mmol/L 21.0-32.0 [facility] Urea nitrogen/Creatinine [Mass ratio] 14.5 mg/mg 10-20 [facility] No Panel InformationOrdered By: Christy Huerta on 06-19-2023 Estimated GFR (MDRD) Amer 27 mL/min >60 [facility] Comment on above: GFR Calc Estimated GFR (MDRD) Non-Af Amer 22 mL/min >60 [facility] Comment on above: Non- GFR Calc Parathyroid Hormone (Intact) 118.0 pg/mL 18.4-80.1 [facility] Serum or plasma albumin lesly urement (mass/volume)Ordered By: Christy Huerta on 06-19-2023 Albumin [Mass/Vol] 3.0 g/dL 3.2-5.0 [facility] Serum or plasma calcium lesly urement (mass/volume)Ordered By: Christy Huerta on 06-19-2023 Calcium [Mass/Vol] 8.4 mg/dL 8.5-10.1 [facility] Serum or plasma creatinine m easurement (mass/volume)Ordered By: Christy Huerta on 06-19-2023 Creatinine [Mass/Vol] 2.34 mg/dL 0.55-1.02 [facility] Comment on above: The validity of the calculated GFR & GFRAA in patients over 70 years has not been determined. Clinical correlation is essential. Serum or plasma urea nitroge n measurement (mass/volume)Ordered By: Christy Huerta on 06-19-2023 Urea nitrogen [Mass/Vol] 34 mg/dL 7-18 [facility] Urine creatinine measurement (mass/volume)Ordered By: Christy Huerta on 06-19-2023 Creatinine (U) [Mass/Vol] 85.10 mg/dL NO RANGE EST. [facility] Urine protein measurement (m ass/volume)Ordered By: Christy Huerta on 06-19-2023 Protein (U) [Mass/Vol] 247.0 mg/dL 0.0-11.8 [facility] Urine protein/creatinine mas s ratioOrdered By: Christy Huerta on 06-19-2023 Protein/Creatinine (U) [Mass ratio] 2902 mg/g CRE 0-200 [facility] Basophil percentageOrdered B y: Sin Lujan on 03-17-2023 Basophil percentage 3.4 mg/dL 2.5-4.9 [facility] Chloride [Moles/Vol] 100 mmol/L 98-107 [facility] Glucose [Mass/Vol] 151 mg/dL 74-106 [facility] Comment on above: Fasting Glucose resu lt greater than or equal to 126 mg/dL suggests DIABETES MELLITUS per A.D.A. criteria. Potassium [Moles/Vol] 5.1 mmol/L 3.5-5.1 [facility] Sodium [Moles/Vol] 137 mmol/L 136-145 [facility] Laboratory - Chemistry and C hemistry - challengeOrdered By: Sin Lujan on 03-17-2023 CO2 [Moles/Vol] 32.0 mmol/L 21.0-32.0 [facility] Magnesium [Mass/Vol] 2.5 mg/dL 1.6-2.6 [facility] Urea nitrogen/Creatinine [Mass ratio] 16.1 mg/mg 10-20 [facility] No Panel InformationOrdered By: Sin Lujan on 03-17-2023 Estimated GFR (MDRD) Amer 24 mL/min >60 [facility] Comment on above: GFR Calc Estimated GFR (MDRD) Non-Af Amer 20 mL/min >60 [facility] Comment on above: Non- GFR Calc Parathyroid Hormone (Intact) 39.8 pg/mL 18.4-80.1 [facility] Serum or plasma albumin lesly urement (mass/volume)Ordered By: Sin Lujan on 03-17-2023 Albumin [Mass/Vol] 3.3 g/dL 3.2-5.0 [facility] Serum or plasma calcium lesly urement (mass/volume)Ordered By: Sin Lujan on 03-17-2023 Calcium [Mass/Vol] 9.6 mg/dL 8.5-10.1 [facility] Serum or plasma creatinine m easurement (mass/volume)Ordered By: Sin Lujan on 03-17-2023 Creatinine [Mass/Vol] 2.61 mg/dL 0.55-1.02 [facility] Comment on above: The validity of the calculated GFR & GFRAA in patients over 70 years has not been determined. Clinical correlation is essential. Serum or plasma urea nitroge n measurement (mass/volume)Ordered By: Sin Lujan on 03-17-2023 Urea nitrogen [Mass/Vol] 42 mg/dL 7-18 [facility] Urine creatinine measurement (mass/volume)Ordered By: Sin Lujan on 03-17-2023 Creatinine (U) [Mass/Vol] 29.80 mg/dL NO RANGE EST. [facility] Urine protein measurement (m ass/volume)Ordered By: Sin Lujan on 03-17-2023 Protein (U) [Mass/Vol] 75.7 mg/dL 0.0-11.8 [facility] Urine protein/creatinine mas s ratioOrdered By: Sin Lujan on 03-17-2023 Protein/Creatinine (U) [Mass ratio] 2540 mg/g CRE 0-200 [facility] Basophil percentageOrdered B y: Dr. Lujan on 02-26-2023 Basophil percentage 4.1 mg/dL 2.5-4.9 [facility] Bilirubin [Mass/Vol] 0.40 mg/dL 0.20-1.00 [facility] Comment on above: For patients on eltr ombopag therapy, use of Dimension [place] TBIL is not recommended. Chloride [Moles/Vol] 105 mmol/L 98-107 [facility] Glucose [Mass/Vol] 270 mg/dL 74-106 [facility] Comment on above: Glucose result great er than or equal to 200 mg/dLsuggests DIABETES MELLITUS per A.D.A. criteria. Potassium [Moles/Vol] 5.0 mmol/L 3.5-5.1 [facility] Protein [Mass/Vol] 6.9 g/dL 6.4-8.2 [facility] Sodium [Moles/Vol] 134 mmol/L 136-145 [facility] WBC (Bld) [#/Vol] 5.6 10*3/uL 4.4-11.0 [facility] Blood erythrocytes count (nu mber/volume)Ordered By: Dr. Lujan on 02-26-2023 RBC (Bld) [#/Vol] 4.10 10*6/uL 4.2-5.4 [facility] Blood hemoglobin measurement (mass/volume)Ordered By: Dr. Lujan on 02-26-2023 Hemoglobin (Bld) [Mass/Vol] 12.1 g/dL 12.0-15.0 [facility] Blood platelet mean volumeOr dered By: Dr. Lujan on 02-26-2023 Platelet mean volume (Bld) [Entitic vol] 10.2 fL 6.2-12.0 [facility] Determination of erythrocyte mean corpuscular volume (MCV)Ordered By: Dr. Lujan on 02-26-2023 MCV (RBC) [Entitic vol] 95.9 fL 81-99 [facility] Hematocrit Auto (Bld) [Volum e fraction]Ordered By: Dr. Lujan on 02-26-2023 Hematocrit (Bld) [Volume fraction] 39.3 % 37-47 [facility] Laboratory - Chemistry and C hemistry - challengeOrdered By: Dr. Lujan on 02-26-2023 ALP [Catalytic activity/Vol] 88 U/L 45-117 [facility] ALT [Catalytic activity/Vol] 16 U/L 13-56 [facility] CO2 [Moles/Vol] 26.0 mmol/L 21.0-32.0 [facility] Globulin (S) [Mass/Vol] 3.8 g/dL 2.2-4.2 [facility] Urea nitrogen/Creatinine [Mass ratio] 17.7 mg/mg 10-20 [facility] Laboratory - Hematology and Cell countsOrdered By: Dr. Lujan on 02-26-2023 Erythrocyte distribution width (RBC) [Entitic vol] 49.3 fL 35.1-43.9 [facility] Erythrocyte distribution width (RBC) [Ratio] 14.0 % 11.6-14.6 [facility] MCH (RBC) [Entitic mass] 29.5 pg 27.0-32.0 [facility] MCHC Auto (RBC) [Mass/Vol]Or dered By: Dr. Lujan on 02-26-2023 MCHC (RBC) [Mass/Vol] 30.8 g/dL 32-36 [facility] No Panel InformationOrdered By: Dr. Lujan on 02-26-2023 Estimated GFR (MDRD) Amer 29 mL/min >60 [facility] Comment on above: GFR Calc Estimated GFR (MDRD) Non-Af Amer 24 mL/min >60 [facility] Comment on above: Non- GFR Calc Thyroid Stimulating Hormone (TSH) 2.30 uIU/mL 0.358-3.74 [facility] Vitamin D 25-Hydroxy 54.6 ng/mL [facility] Comment on above: Vitamin D 25(OH) Sta tus Range Deficiency <20 ng/mL (50nmol/L) Insufficiency 20 - 30 ng/mL (50 - 75 nmol/L) Sufficiency 30 - 100 ng/mL (75 - 250 nmol/L) Toxicity >100 ng/mL (>250 nmol/L) No Panel InformationOrdered By: Dr. Huerta on 02-26-2023 Parathyroid Hormone (Intact) 110.4 pg/mL 18.4-80.1 [facility] Platelets bldOrdered By: Dr. Lujan on 02-26-2023 Platelets (Bld) [#/Vol] 217 10*3/uL 150-450 [facility] Serum or plasma albumin lesly urement (mass/volume)Ordered By: Dr. Lujan on 02-26-2023 Albumin [Mass/Vol] 3.1 g/dL 3.2-5.0 [facility] Serum or plasma albumin/glob ulin mass ratioOrdered By: Dr. Lujan on 02-26-2023 Albumin/Globulin [Mass ratio] 0.8 {ratio} 0.9-2.4 [facility] Serum or plasma calcium lesly urement (mass/volume)Ordered By: Dr. Lujan on 02-26-2023 Calcium [Mass/Vol] 8.7 mg/dL 8.5-10.1 [facility] Serum or plasma creatinine m easurement (mass/volume)Ordered By: Dr. Lujan on 02-26-2023 Creatinine [Mass/Vol] 2.20 mg/dL 0.55-1.02 [facility] Comment on above: The validity of the calculated GFR & GFRAA in patients over 70 years has not been determined. Clinical correlation is essential. Serum or plasma urea nitroge n measurement (mass/volume)Ordered By: Dr. Lujan on 02-26-2023 Urea nitrogen [Mass/Vol] 39 mg/dL 7-18 [facility] Thin prep Papanicolaou smear with manual screeningOrdered By: Dr. Lujan on 02-26-2023 Thin prep Papanicolaou smear with manual screening 15 U/L 15-37 [facility] Thin prep Papanicolaou smear with manual screening 3 5-15 [facility] Laboratory - Hematology and Cell countson 01-01-2023 HbA1c (Bld) [Mass fraction] 9.0 % [facility] Absolute lymphocyte counton 10-11-2022 Lymphocytes Auto (Unsp spec) [#/Vol] 2.65 10*3/uL 0.83-4.51 [facility] Work Phone: Basophil percentageon 2021 Amylase [Catalytic activity/Vol] 51 U/L 25-115 [facility] Work Phone: Basophils/100 WBC (Bld) 1.2 % 0-1 [facility] Work Phone: Bilirubin [Mass/Vol] 0.30 mg/dL 0.20-1.00 [facility] Work Phone: Comment on above: For patients on eltr ombopag therapy, use of Dimension [place] TBIL is not recommended. Chloride [Moles/Vol] 101 mmol/L 98-107 [facility]: Cholesterol [Mass/Vol] 266 mg/dL <200 [facility] Work Phone: Comment on above: <200 mg/dL Desirable 200-240 mg/dL Borderline >240 mg/dL High Risk Eosinophils/100 WBC (Bld) 8.5 % 0-5 [facility] Work Phone: Glucose [Mass/Vol] 206 mg/dL 74-106 [facility] Work Phone: Comment on above: Glucose result great er than or equal to 200 mg/dLsuggests DIABETES MELLITUS per A.D.A. criteria. Neutrophils (Bld) [#/Vol] 3.7 10*3/uL 2.0-7.7 [facility] Work Phone: Neutrophils/100 WBC (Bld) 49.0 % 47-70 [facility] Work Phone: Potassium [Moles/Vol] 4.2 mmol/L 3.5-5.1 [facility] Work Phone: Protein [Mass/Vol] 6.9 g/dL 6.4-8.2 [facility] Work Phone: Sodium [Moles/Vol] 138 mmol/L 136-145 [facility] Work Phone: Triglyceride [Mass/Vol] 198 mg/dL <199 [facility] Work Phone: Comment on above: The drugs N-Acetylcy steine and Metamizole may falsely depress this assay.Serum Triglycerides Reference Interval Normal <150 mg/dL Borderline high 150 - 199 mg/dL High 200 - 499 mg/dL Very High > or = 500 mg/dL WBC (Bld) [#/Vol] 7.5 10*3/uL 4.4-11.0 [facility] Work Phone: Blood erythrocytes count (nu mber/volume)on 10-11-2022 RBC (Bld) [#/Vol] 4.53 10*6/uL 4.2-5.4 [facility] Work Phone: Blood hemoglobin measurement (mass/volume)on 10-11-2022 Hemoglobin (Bld) [Mass/Vol] 13.4 g/dL 12.0-15.0 [facility] Work Phone: Blood lymphocytes/100 leukoc yteson 10-11-2022 Lymphocytes/100 WBC (Bld) 35.2 % 19-41 [facility] Work Phone: Blood monocytes/100 leukocyt eson 10-11-2022 Monocytes/100 WBC (Bld) 5.8 % 0-10 [facility] Work Phone: Blood platelet mean volumeon 10-11-2022 Platelet mean volume (Bld) [Entitic vol] 10.5 fL 6.2-12.0 [facility] Work Phone: Determination of erythrocyte mean corpuscular volume (MCV)on 10-11-2022 MCV (RBC) [Entitic vol] 96.9 fL 81-99 [facility] Work Phone: Erythrocyte sedimentation ra darek 10-11-2022 ESR (Bld) [Velocity] 38 mm/h 0-30 [facility] Work Phone: Hematocrit Auto (Bld) [Volum e fraction]on 10-11-2022 Hematocrit (Bld) [Volume fraction] 43.9 % 37-47 [facility] Work Phone: INR in Blood by Coagulation assayon 10-11-2022 INR Coag (Bld) [Relative time] 0.9 {INR} [facility] Work Phone: Iron measurement (mass/mass) on 10-11-2022 Iron (Unsp spec) [Mass/Mass] 67 ug/dL 50-170 [facility] Work Phone: Laboratory - Chemistry and C hemistry - challengeon 10-11-2022 ALP [Catalytic activity/Vol] 93 U/L 45-117 [facility] Work Phone: ALT [Catalytic activity/Vol] 11 U/L 13-56 [facility] Work Phone: CO2 [Moles/Vol] 30.0 mmol/L 21.0-32.0 [facility] Work Phone: Globulin (S) [Mass/Vol] 3.8 g/dL 2.2-4.2 [facility] Work Phone: Lipase [Catalytic activity/Vol] 82 U/L 73-393 [facility] Work Phone: Urea nitrogen/Creatinine [Mass ratio] 16.2 mg/mg 10-20 [facility] Work Phone: Laboratory - Coagulationon 1 12-12-2021 aPTT Coag (Bld) [Time] 29.2 s 24.1-36.2 [facility] Work Phone: PT Coag (PPP) [Time] 12.2 s 11.7-14.9 [facility] Work Phone: Laboratory - Hematology and Cell countson 10-11-2022 Erythrocyte distribution width (RBC) [Entitic vol] 48.3 fL 35.1-43.9 [facility] Work Phone: Erythrocyte distribution width (RBC) [Ratio] 13.4 % 11.6-14.6 [facility] Work Phone: Immature granulocytes/100 WBC (Bld) 0.300 % 0.0-0.9 [facility] Work Phone: Comment on above: IG% - Immature Granu locytes (promyelocytes, myelocytes and metamyelocytes) > 1% indicates that a LEFT SHIFT is Present. MCH (RBC) [Entitic mass] 29.6 pg 27.0-32.0 [facility] Work Phone: Nucleated RBC/100 WBC (Bld) [Ratio] 0 % 0-5 [facility] Work Phone: MCHC Auto (RBC) [Mass/Vol]on 10-11-2022 MCHC (RBC) [Mass/Vol] 30.5 g/dL 32-36 [facility] Work [facility]: No Panel Informationon 10-11 Estimated GFR (MDRD) Amer 27 mL/min >60 [facility] Work Phone: Comment on above: GFR Calc Estimated GFR (MDRD) Non-Af Amer 22 mL/min >60 [facility] Work Phone: Comment on above: Non- GFR Calc Thyroid Stimulating Hormone (TSH) 1.67 uIU/mL 0.358-3.74 [facility] Work Phone: Vitamin D 25-Hydroxy 30.7 ng/mL [facility] Work Phone: Comment on above: Vitamin D 25(OH) Sta tus Range Deficiency <20 ng/mL (50nmol/L) Insufficiency 20 - 30 ng/mL (50 - 75 nmol/L) Sufficiency 30 - 100 ng/mL (75 - 250 nmol/L) Toxicity >100 ng/mL (>250 nmol/L) Platelets bldon 10-11-2022 Platelets (Bld) [#/Vol] 301 10*3/uL 150-450 [facility] Work Phone: Serum or plasma albumin lesly urement (mass/volume)on 10-11-2022 Albumin [Mass/Vol] 3.1 g/dL 3.2-5.0 [facility] Work Phone: Serum or plasma albumin/glob ulin mass ratioon 10-11-2022 Albumin/Globulin [Mass ratio] 0.8 {ratio} 0.9-2.4 [facility] Work Phone: Serum or plasma calcium lesly urement (mass/volume)on 10-11-2022 Calcium [Mass/Vol] 9.2 mg/dL 8.5-10.1 [facility] Work Phone: Serum or plasma cholesterol in HDL measurement (mass/volume)on 10-11-2022 Cholesterol in HDL [Mass/Vol] 64 mg/dL >40 [facility] Work Phone: Comment on above: The drugs N-Acetylcy steine and Metamizole may falsely depress this assay. Reference Range HDL <40 mg/dL Low HDL Cholesterol HDL >or= 60 mg/dL High HDL Cholesterol Serum or plasma cholesterol in VLDL measurement (mass/volume)on 10-11-2022 Cholesterol in VLDL [Mass/Vol] 40 mg/dL 5-40 [facility] Work Phone: Serum or plasma creatinine m easurement (mass/volume)on 10-11-2022 Creatinine [Mass/Vol] 2.35 mg/dL 0.55-1.02 [facility] Work Phone: Comment on above: The validity of the calculated GFR & GFRAA in patients over 70 years has not been determined. Clinical correlation is essential. Serum or plasma ferritin allyn surement (mass/volume)on 10-11-2022 Ferritin [Mass/Vol] 27 ng/mL 8-252 [facility] Work Phone: Serum or plasma low density lipoprotein (LDL) cholesterol measurement (mass/volume)on 10-11-2022 Cholesterol in LDL [Mass/Vol] 162 mg/dL 0-130 [facility] Work Phone: Serum or plasma urea nitroge n measurement (mass/volume)on 10-11-2022 Urea nitrogen [Mass/Vol] 38 mg/dL 7-18 [facility] Work Phone: Thin prep Papanicolaou smear with manual screeningon 10-11-2022 Thin prep Papanicolaou smear with manual screening 8 U/L 15-37 [facility] Work Phone: Thin prep Papanicolaou smear with manual screening 7 5-15 [facility] Work Phone: Laboratory - Hematology and Cell countson 07-04-2022 HbA1c (Bld) [Mass fraction] 7.2 % [facility] Work Phone: NICOTINE+METABOLITES,Son [id number] 156 ng/mL Normal [facility] Comment on above: Performed By: #### H EPFP #### [facility] [id number] [place] [address] COTININE 194 ng/mL Normal [facility] Comment on above: Performed By: #### H EPFP #### [facility] [id number] [place] [id number] NICOTINE 7 ng/mL Normal [facility] Comment on above: Result Comment: Cons istent with use of a nicotine-containing product within 48 hours of specimen collection. Nicotine is metabolized to cotinine and 6-CB-[id number]. INTERPRETIVE INFORMATION: Nicotine and Metabolites, Serum or [...] developed and its performance characteristics determined by [facility]. It has not been cleared or approved by the [place] Food and Drug Administration. This test was performed in a CLIA certified laboratory and is intended for clinical purposes. Performed By: [facility] [address] [place] [id number] Riding Teacher: Fabrizio Cruz MD, PhD Performed By: #### H EPFP #### [facility] [address] [place] [phone] DRUG-PROFILE 9,BLOOD WITH RE FLEX TO CONFIRMATIONon 05-31-2022 AMPHETAMINES SCREEN Negative Normal Cutoff 20 [facility] Comment on above: Performed By: #### H EPFP #### [facility] [address] [place] [address] BARBITURATES SCREEN Negative Normal Cutoff 50 [facility] Comment on above: Performed By: #### H EPFP #### [facility] [address] [place] [address] BENZODIAZEPINES SCREEN Negative Normal Cutoff 50 [facility] Comment on above: Performed By: #### H EPFP #### [facility] [address] [place] [address] BUPRENORPHINE SCREEN Negative Normal Cutoff 1 [facility] Comment on above: Performed By: #### H EPFP #### [facility] [address] [place] [address] CANNABINOID SCREEN Negative Normal Cutoff 20 [facility] Comment on above: Performed By: #### H EPFP #### [facility] [address] [place] [address] COCAINE SCREEN Negative Normal Cutoff 20 [facility] Comment on above: Performed By: #### H EPFP #### [facility] [address] [place] [address] DRUG SCREEN COMMENT See Note Normal [facility] Comment on above: Result Comment: [...] developed and its performance characteristics determined by [facility]. It has not been cleared or approved by the [place] Food and Drug Administration. This test was performed in a CLIA certified laboratory and is intended for clinical purposes. Performed By: [facility] [address] [place] [address] Riding Teacher: Fabrizio Cruz MD, PhD Performed By: #### H EPFP #### [place] [address] [place] [address] METHADONE SCREEN Negative Normal Cutoff 25 [facility] Comment on above: Performed By: #### H EPFP #### [facility] [address] [place] [address] METHAMPHETAMINES SCREEN Negative Normal Cutoff 20 [facility] Comment on above: Performed By: #### H EPFP #### [facility] [address] [place] [address] OPIATE SCREEN Negative Normal Cutoff 20 [facility] Comment on above: Performed By: #### H EPFP #### [facility] [address] [place] [address] OXYCODONE SCREEN Negative Normal Cutoff 20 [facility] Comment on above: Performed By: #### H EPFP #### [facility] [address] [place] [phone] PCP SCREEN Negative Normal Cutoff 10 [facility] Comment on above: Performed By: #### H EPFP #### [facility] [address] [place] [phone] T-SPOT TBon 05-30-2022 NIL[NEG]CONTROL SPOT COUNT Passed Normal [facility] Comment on above: Performed By: #### H EPFP #### [facility] [address] [place] [address] PANEL A SPOT COUNT 0 Normal [facility] Comment on above: Performed By: #### H EPFP #### [facility] [address] [place] [address] PANEL B SPOT COUNT 2 Normal [facility] Comment on above: Performed By: #### H EPFP #### [facility] [address] [place] [address] POS CONTROL SPOT COUNT Passed Normal [facility] Comment on above: Performed By: #### H EPFP #### [facility] [address] [place] [id number] T-SPOT.TB INTERP Negative Normal Normal Value: Negative [facility] Comment on above: Result Comment: [...] Performed By: #### H EPFP #### [facility] [address] [place] [address] ABO/RH GROUP TESTon 05-28-20 ABO TYPE O Normal [facility] Comment on above: Performed By: #### H LAS1 #### [facility] [address] [place] [address] RH TYPE Positive Normal [facility] Comment on above: Performed By: #### H LAS1 #### [facility] [address] [place] [address] AUTOCROSSMATCH, FLOWon 05-28 AUTOCROSSMATCH, FLOW SEE SEPARATE REPORT Normal [facility] Comment on above: Result Comment: Test performed at [facility] 6[facility] [address] [place] [address] Performed By: #### U SWETHA #### [facility] [address] [facility] [place] [address] AUTOCROSSMATCH, FLOW Canceled Normal [facility] Comment on above: Order Comment: TEST AUTOCROSSMATCH, FLOW WAS CANCELLED, 05/28/2022 13:06 Result Comment: Test performed at [facility], 6th Floor [address] [place] [address] Performed By: #### H EPFP #### [facility] [address] [place] [phone] Blood Typing (ABO + Rho D)on 05-28-2022 ABO group Nom (Bld) O [facility] Work Phone: Rh immune globulin screen (Bld) [Interp] Positive [facility]-Transpl ant- [facility] [employer] | Anywhere 1800 Work Phone: Blood Urea Nitrogen, Serumon 05-28-2022 Urea nitrogen [Mass/Vol] 47 mg/dL above high threshold 6 - 23 [facility]-Trans[facility]- [facility] [employer] | Anywhere 1800 Work Phone: C PEPTIDEon 05-28-2022 C PEPTIDE 0.1 ng/mL Low 0.7 - 3.9 [facility] Comment on above: Performed By: #### U SWETHA #### [facility] [address] [place] [address] C Peptide, Serumon C peptide [Mass/Vol] 0.1 ng/mL below low threshold 0.7 - 3.9 [facility]- [facility] [employer] | Anywhere 1800 Work Phone: CBCon 05-28-2022 Erythrocyte distribution width (RBC) [Ratio] 13.5 % Normal 11.5 - 14.5 [facility] Comment on above: Performed By: #### U SWETHA #### [facility] [address] [place] [address] Hematocrit (Bld) [Volume fraction] 37.0 % Normal 36.0 - 46.0 [facility] Comment on above: Performed By: #### U SWETHA #### [facility] [address] [place] [address] Hemoglobin (Bld) [Mass/Vol] 11.3 g/dL Low 12.0 - 16.0 [facility] Comment on above: Performed By: #### U SWETHA #### [facility] [address] [place] [address] MCHC (RBC) [Mass/Vol] 30.5 g/dL Low 32.0 - 36.0 [facility] Comment on above: Performed By: #### U SWETHA #### [facility] [address] [place] [address] MCV (RBC) [Entitic vol] 101 fL High 80 - 100 [facility] Comment on above: Performed By: #### U SWETHA #### [facility] [address] [place] [address] NUCLEATED RBC 0.0 /100 WBC Normal 0.0-0.0 [facility] Comment on above: Performed By: #### U SWETHA #### [facility] [address] [place] [address] Platelets (Bld) [#/Vol] 240 10*3/uL Normal 150 - 450 [facility] Comment on above: Performed By: #### U SWETHA #### [facility] [address] [place] [address] RBC 3.66 x10E12/L Low 4.00 - 5.20 [facility] Comment on above: Performed By: #### U SWETHA #### [facility] [address] [place] [address] WBC (Bld) [#/Vol] 9.3 10*3/uL Normal 4.4 - 11.3 [facility] Comment on above: Performed By: #### U SWETHA #### [facility] [address] [place] [address] CMV IGGon 05-28-2022 CMV IGG AB Reactive Abnormal NONREACTIVE [facility] Comment on above: Performed By: #### H LAS1 #### [facility] [address] [place] [address] CMV IgGon 05-28-2022 CMV IgG Reactive Abnormal See Below [facility]- [facility] 1800 Work Phone: Comment on above: SOURCE: Reference Ra nge: NONREACTIVE CREATININEon 05-28-2022 Creatinine [Mass/Vol] 2.19 mg/dL High 0.50 - 1.05 [facility] Comment on above: Performed By: #### H LAS1 #### [facility] [address] [place] [address] GFR/1.73 sq M.predicted among non-blacks MDRD (S/P/Bld) [Vol rate/Area] 25 mL/min/{1.73_m2} Abnormal >90 [facility] Comment on above: Result Comment: CALC ULATIONS OF ESTIMATED GFR ARE PERFORMED USING THE 2020 CKD-EPI STUDY REFIT EQUATION WITHOUT THE RACE VARIABLE FOR THE IDMS-TRACEABLE CREATININE METHODS. https://jasn.asnjournals.org/content/early/ASN.41335 15495 Performed By: #### H LAS1 #### [facility] [address] [place] [address] Creatinine, Serumon 05-28-20 Creatinine [Mass/Vol] 2.19 mg/dL above high threshold See Below [facility]-Trans[facility]- [facility] [employer] Work Phone: Comment on above: Reference Range: 0.5 0 - 1.05 Creatinine, Serum 25 {mL/min/1.73m2} Abnormal >90 MG-Trans[facility]- [facility] [employer] Work Phone: Comment on above: CALCULATIONS OF EMILIO MATED GFR ARE PERFORMED USING THE 2020 CKD-EPI STUDY REFIT EQUATION WITHOUT THE RACE VARIABLE FOR THE IDMS-TRACEABLE CREATININE METHODS.https://jasn.asnjournals.org/content/early/A SN.5262220509 EBV PANELon 05-28-2022 VCA IGM ANTIBODY Negative Normal NEGATIVE [facility] Comment on above: Performed By: #### E BVP1 #### [facility] [address] [place] [phone] EBV EA-D IGG ANTIBODY Negative Normal NEGATIVE [facility] Comment on above: Performed By: #### E BVP1 #### [facility] [address] [place] [address] EBV INTERPRETATION SEE BELOW Normal [facility] Comment on above: Result Comment: . EB V INTERPRETATION CHART . VCA-IGG VCA-IGM NA-IGG EA-IGG . PRIMARY ACUTE +/- +/- - +/- LATE ACUTE + +/- +/- +/- RECOVERING + - - + PREVIOUS INFECTION + - +/- - Performed By: #### E BVP1 #### [facility] [address] [place] [address] EBV NA-1 IGG ANTIBODY Positive Abnormal NEGATIVE [facility] Comment on above: Performed By: #### E BVP1 #### [facility] [address] [place] [address] VCA IGG ANTIBODY Positive Abnormal NEGATIVE [facility] Comment on above: Performed By: #### E BVP1 #### [facility] [address] [place] [address] HEMOGLOBIN A1Con 05-28-2022 Glucose [Mass/Vol] 194 mg/dL Normal [facility] Comment on above: Performed By: #### H EPFP #### [facility] [address] [place] [address] HbA1c (Bld) [Mass fraction] 8.4 % Abnormal [facility] Comment on above: Result Comment: Diag nosis of Diabetes-Adults Non-Diabetic: < or = 5.6% Increased risk for developing diabetes: 5.7-6.4% Diagnostic of diabetes: > or = 6.5% . Monitoring of Diabetes Age (y) Therapeutic Goal (%) Adults: >18 <7.0 Pediatrics: 13-18 <7.5 7-12 <8.0 0- 6 7.5-8.5 [place] [employer]. Diabetes Care 33(S1), Nov 2009. Performed By: #### H EPFP #### [facility] [address] [place] [address] HEPATIC FUNCTION PANELon Albumin [Mass/Vol] 3.5 g/dL Normal 3.4 - 5.0 [facility] Comment on above: Performed By: #### H EPFP #### [facility] [address] [place] [address] ALP [Catalytic activity/Vol] 70 U/L Normal 33 - 136 [facility] Comment on above: Performed By: #### H EPFP #### [facility] [address] [place] [address] ALT [Catalytic activity/Vol] 12 U/L Normal 7 - 45 [facility] Comment on above: Result Comment: Lauren ents treated with Sulfasalazine may generate falsely decreased results for ALT. Performed By: #### H EPFP #### [facility] [address] [place] [address] AST [Catalytic activity/Vol] 15 U/L Normal 9 - 39 [facility] Comment on above: Performed By: #### H EPFP #### [facility] [address] [place] [address] Bilirubin [Mass/Vol] 0.3 mg/dL Normal 0.0 - 1.2 [facility] Comment on above: Performed By: #### H EPFP #### [facility] [address] [place] Bilirubin.indirect [Mass/Vol] 0.1 mg/dL Normal 0.0 - 0.3 [facility] Comment on above: Performed By: #### H EPFP #### [facility] [address] [place] [address] Protein [Mass/Vol] 6.0 g/dL Low 6.4 - 8.2 [facility] Comment on above: Performed By: #### H EPFP #### [facility] [address] [place] [address] HEPATITIS B CORE AB-TOTALon 05-28-2022 HEP. B CORE AB-TOTAL Non-Reactive Normal NONREACTIVE U [facility] Comment on above: Result Comment: Resu lts from patients taking biotin supplements or receiving high-dose biotin therapy should be interpreted with caution due to possible interference with this test. Providers may contact their local laboratory for further information. Performed By: #### H BCRT #### [facility] [address] [place] [address] Lab Specimen Source Normal [facility] Comment on above: Performed By: #### H BCRT #### [facility] [address] [place] [address] Performed By: #### S YPHR #### [facility] [address] [place], [place] [id number] Performed By: #### H LAS1 #### [facility] [address] [place] [address] Performed By: #### U SWETHA #### [facility] [address] [place] [address] HEPATITIS B SURF ABon 2021 HEP B SURF AB <3.1 Normal <10 [facility] Comment on above: Result Comment: INTE RPRETIVE CRITERIA: <10 mIU/mL....NONREACTIVE >=10 mIU/mL...REACTIVE . Biotin interference may cause falsely decreased results. Patients taking a Biotin dose of up to 5 mg/day should refrain from taking Biotin for 24 hours before sample collection. Providers may contact their local laboratory for further information. Performed By: #### H LAS1 #### [facility] [address] [place] [address] HEPATITIS B SURFACE AGon HEP.B SURFACE AG Non-Reactive Normal NONREACTIVE [facility] Comment on above: Result Comment: Biot in interference may cause falsely decreased results. Patients taking a Biotin dose of up to 5 mg/day should refrain from taking Biotin for 24 hours before sample collection. Providers may contact their local laboratory for further information. Performed By: #### U SWETHA #### [facility] [address] [place] [address] HEPATITIS C ABon 05-28-2022 HEPATITIS C AB Non-Reactive Normal NONREACTIVE [facility] Comment on above: Result Comment: Resu lts from patients taking biotin supplements or receiving high-dose biotin therapy should be interpreted with caution due to possible interference with this test. Providers may contact their local laboratory for further information. Performed By: #### H LAS1 #### [facility] [address] [place] [address] HIV 1/2 ANTIGEN/ANTIBODY SCR EEN WITH REFLEX TO CONFIRMATIONon 05-28-2022 HIV 1/2 AG/AB SCREEN Non-Reactive Normal NONREACTIVE [facility] Comment on above: Result Comment: HIV Ag/Ab screen is performed using the Siemens [employer] HIV Ag/Ab Combo assay which detects the presence of HIV p24 antigen as well as antibodies to HIV-1 (Group M and O) and HIV-2. . No laboratory evidence of HIV infection. If acute HIV infection is suspected, consider testing for HIV RNA by PCR (viral load). Performed By: #### H LAS1 #### [facility] [address] [place] [address] HIV 1+2 Ab Qn (S) Non-Reactive See Below MG-Tr [facility]plant- [facility]elin [...] CLASS I AB SCREEN,FC SEE COMMENT Normal [facility] Comment on above: Result Comment: HLA CLASS I AB SCREEN,FLOW CYTOMETRY SEE SEPARATE REPORT. Test performed at [facility], 6th Floor [address] [place] [address] Performed By: #### H LAS1 #### [facility] [address] [place] [phone] HLA CLASS I AB SCREEN,FC Canceled Normal [facility] Comment on above: Order Comment: TEST HLA CLASS I AB SCREEN,FC WAS CANCELLED, 05/28/2022 13:06 Performed By: #### H LAS1 #### [facility] [address] [place] [phone] HLA CLASS II AB SCREEN,FCon 05-28-2022 HLA CLASS II AB SCREEN,FC SEE COMMENT Normal [facility] Comment on above: Result Comment: HLA CLASS II AB SCREEN,FLOW CYTOMETRY SEE SEPARATE REPORT. Test performed at [facility], 6th Floor [address] [place] [address] Performed By: #### U SWETHA #### [facility] [address] [place] [phone] HLA CLASS II AB SCREEN,FC Canceled Normal [facility] Comment on above: Order Comment: TEST HLA CLASS II AB SCREEN,FC WAS CANCELLED, 05/28/2022 13:06 Performed By: #### H LAS1 #### [facility] [address] [place] [address] HLA-A,B,C LRon 05-28-2022 HLA-A LOCUS LR TYPE SEE COMMENT Normal [facility] Comment on above: Result Comment: HLA- A LOCUS, LOW RESOLUTION TYPE SEE SEPARATE REPORT. Performed By: #### H EPFP #### [facility] [address] [place] [address] HLA-B LOCUS LR TYPE SEE COMMENT Normal [facility] Comment on above: Result Comment: HLA- B LOCUS, LOW RESOLUTION TYPE SEE SEPARATE REPORT. Performed By: #### H EPFP #### [facility] [address] [place] [address] HLA-C LOCUS LR TYPE SEE COMMENT Normal [facility] Comment on above: Result Comment: HLA- C LOCUS, LOW RESOLUTION TYPE SEE SEPARATE REPORT. Test performed at [facility], 6th Floor [address] [place] [address] Performed By: #### H EPFP #### [facility] [address] [place] [address] HLA-A LOCUS LR TYPE Canceled Normal [facility] Comment on above: Order Comment: TEST HLA-A,B,C LR WAS CANCELLED, 05/28/2022 13:06 Performed By: #### H EPFP #### [facility] [address] [place] [address] HLA-B LOCUS LR TYPE Canceled Normal [facility] Comment on above: Order Comment: TEST HLA-A,B,C LR WAS CANCELLED, 05/28/2022 13:06 Performed By: #### H EPFP #### [facility] [address] [place] [address] HLA-C LOCUS LR TYPE Canceled Normal [facility] Comment on above: Order Comment: TEST HLA-A,B,C LR WAS CANCELLED, 05/28/2022 13:06 Performed By: #### H EPFP #### [facility] [address] [place] [address] HLA-DPB1 HR TYPINGon 022 HLA-DPB1 HR TYPING SEE COMMENT Normal [facility] Comment on above: Result Comment: HLA- DPB1 HIGH RESOLUTION TYPING SEE SEPARATE REPORT. Test performed at [facility], 6th Floor [address] [place] [address] Performed By: #### D PBHT #### [facility] [address] [place] [phone] HLA-DPB1 HR TYPING Canceled Normal [facility] Comment on above: Order Comment: TEST HLA-DPB1 HR TYPING WAS CANCELLED, 05/28/2022 13:06 Performed By: #### D PBHT #### [facility] [address] [place] [phone] HLA-DQB1 HR TYPINGon 022 HLA-DQB1 HR TYPING SEE COMMENT Normal [facility] Comment on above: Result Comment: HLA- DQB1 HIGH RESOLUTION TYPING SEE SEPARATE REPORT. Test performed at [facility], 6th Floor [address] [place] [address] Performed By: #### D QBHT #### [facility] [address] [place] [address] HLA-DQB1 HR TYPING Canceled Normal [facility] Comment on above: Order Comment: TEST HLA-DQB1 HR TYPING WAS CANCELLED, 05/28/2022 13:06 Performed By: #### H EPFP #### [facility] [address] [place] [phone] HLA-DRB1/3/4/5 AND DQB1 LR T YPINGon 05-28-2022 HLA-DRB1/3/4/5 & DQB1 LR TYPING SEE COMMENT Normal [facility] Comment on above: Result Comment: HLA- DRB1/3/4/5 AND DQB1 LOW RESOLUTION TYPING SEE SEPARATE REPORT. Test performed at [facility], 6th Floor [address] [place] [address] Performed By: #### H EPFP #### [facility] [address] [place] [address] HLA-DRB1/3/4/5 & DQB1 LR TYPING Canceled Normal [facility] Comment on above: Order Comment: TEST HLA-DRB1/3/4/5 AND DQB1 LR TYPING WAS CANCELLED, 05/28/2022 13:06 Performed By: #### H EPFP #### [facility] [address] [place] [address] Hemoglobin A1Con 05-28-2022 Glucose [Mass/Vol] 194 mg/dL MG-Tra nsplant- [facility] Work Phone: HbA1c (Bld) [Mass fraction] 8.4 % Abnormal MG-Transplant- [facility] Work Phone: Comment on above: Diagnosis of Diabete s-Adults Non-Diabetic: < or = 5.6% Increased risk for developing diabetes: 5.7-6.4% Diagnostic of diabetes: > or = 6.5%. Monitoring of Diabetes Age (y) Therapeutic Goal (%) Adults: >18 <7.0 Pediatrics: 13-18 <7.5 7-12 <8.0 0- 6 7.5-8.5 [place] [employer]. Diabetes Care 33(S1), Nov 2009. Hepatic Function Panelon Albumin BCP dye [Mass/Vol] 3.5 g/dL 3.4 - 5.0 [facility]- [facility] Work Phone: ALP [Catalytic activity/Vol] 70 U/L 33 - 136 [facility]- [facility] Work Phone: ALT With P-5'-P [Catalytic activity/Vol] 12 U/L 7 - 45 [facility]- [facility] Work Phone: Comment on above: Patients treated wit h Sulfasalazine may generate falsely decreased results for ALT. AST With P-5'-P [Catalytic activity/Vol] 15 U/L 9 - 39 [facility]- [facility] Work Phone: Bilirubin [Mass/Vol] 0.3 mg/dL 0.0 - 1.2 MG-T ransplant- [facility] Work Phone: Bilirubin.direct [Mass/Vol] 0.1 mg/dL 0.0 - 0.3 [facility]-Trans[facility]- [facility] [address] Work Phone: Protein [Mass/Vol] 6.0 g/dL below low threshold 6.4 - 8.2 MG-Transplant- [facility] 1800 Work Phone: Hepatitis B Core Antibody, T otalon 05-28-2022 Hepatitis B Core Antibody, Total Non-Reactive See Below [facility]-Trans[facility]- [facility] [employer] Work Phone: Comment on above: SOURCE: Reference [...] Ag IA Ql <3.1 <10 MG-T ransplant- [facility] [place] [employer] Work Phone: Comment on above: SOURCE: INTERPRETIVE CRITERIA:<10 mIU/mL....NONREACTIVE >=10 mIU/mL...REACTIVE . Biotin interference may cause falsely decreased results. Patients taking a Biotin dose of up to 5 mg/day should refrain from taking Biotin for 24 hours before sample collection. Providers may contact their local laboratory for further information. Laboratory - Drug toxicology on 05-28-2022 Amphetamines Screen Ql Negative Cutoff 20 MG -Transplant- [facility] Work Phone: Barbiturates Screen Ql Negative Cutoff 50 MG -Transplant- [facility] Work Phone: Benzodiazepines Screen Ql Negative Cutoff 50 MG-Transplant- [facility] Work Phone: Cannabinoids Screen Ql Negative Cutoff 20 MG -Transplant- [facility] Work Phone: Cocaine Screen Ql Negative Cutoff 20 MG-Mora splant- [facility] Work Phone: Methadone Screen Ql Negative Cutoff 25 MG-Tr ansplant- [facility] Work Phone: Methamphetamine Ql Negative Cutoff 20 MG-Tra nsplant- [facility] Work Phone: Opiates Screen Ql Negative Cutoff 20 MG-Mora splant- [facility] Work Phone: oxyCODONE Ql Negative Cutoff 20 MG-Transplan t- [facility] Work Phone: Phencyclidine Screen Ql Negative Cutoff 10 MG-Transplant- [facility] Work Phone: Laboratory - HLA antigenson 05-28-2022 HLA-A locus Nom (Bld/Tiss) SEE COMMENT [facility] [employer] - [employer] Anyt[employer] | Anywhere 1800 Work Phone: Comment on above: HLA-A LOCUS, LOW RES OLUTION TYPE SEE SEPARATE REPORT. HLA-B locus Nom (Bld/Tiss) SEE COMMENT [facility] [employer] - [employer]yt[employer] | Anywhere 1800 Work Phone: Comment on above: HLA-B LOCUS, LOW RES OLUTION TYPE SEE SEPARATE REPORT. HLA-C locus Nom (Bld/Tiss) SEE COMMENT [facility] [employer] Work Phone: Comment on above: HLA-C LOCUS, LOW RES OLUTION TYPE SEE SEPARATE REPORT.Test performed at [facility], [address]th [address] [place] [id number] HLA-DP2 Ql (Bld/Tiss) SEE COMMENT [facility] [employer] - [employer]ments Anytime | Anywhere 1800 Work Phone: Comment on above: HLA-DPB1 HIGH RESOLU TION TYPING SEE SEPARATE REPORT.Test performed at [facility], 6th Floor [address] [place] [address] HLA-DQB1 High resolution Nom (Bld/Tiss) SEE COMMENT [facility] Work Phone: Comment on above: HLA-DQB1 HIGH RESOLU TION TYPING SEE SEPARATE REPORT.Test performed at [facility], 6th Floor [address] [place] [address] HLA-DR+DQ Nom (Bld/Tiss) SEE COMMENT [facility]- [facility] 1800 Work Phone: Comment on above: HLA-DRB1/3/4/5 & DQB 1 LOW RESOLUTION TYPING SEE SEPARATE REPORT.Test performed at [facility] [address] [place] [address] HLA-A locus Nom (Bld/Tiss) Canceled [facility]- [facility] 1800 Work Phone: HLA-B locus Nom (Bld/Tiss) Canceled [facility]- [facility] 1800 Work Phone: HLA-C locus Nom (Bld/Tiss) Canceled [facility] 1800 Work Phone: HLA-DP2 Ql (Bld/Tiss) Canceled [facility] 1800 Work Phone: HLA-DQB1 High resolution Nom (Bld/Tiss) Canceled [facility]- [facility] 1800 Work Phone: HLA-DR+DQ Nom (Bld/Tiss) Canceled [facility]- [facility] 1800 Work Phone: Laboratory - Hematology and Cell countson 05-28-2022 Erythrocyte distribution width (RBC) [Ratio] 13.5 % See Below [facility]- [facility] 1800 Work Phone: Comment on above: Reference [...] below low threshold See Below [facility]-Transplant- [facility] 1800 Work Phone: Comment on above: Reference Range: 32. 0 - 36.0 MCV (RBC) [Entitic vol] 101 fL above high threshold 80 - 100 [facility]- [facility] 1800 Work Phone: Platelets (Bld) [#/Vol] 240 10*3/uL 150 - 450 [facility]- [facility] 1800 Work Phone: RBC (Bld) [#/Vol] 3.66 {x10E12/L} below low threshold See Below [facility]-Transplant- [facility] 1800 Work Phone: Comment on above: Reference Range: 4.0 0 - 5.20 WBC (Bld) [#/Vol] 9.3 10*3/uL 4.4 - 11.3 [facility]-Tra nsplant- [facility] 1800 Work Phone: Laboratory - Microbiology an d Antimicrobial susceptibilityon 05-28-2022 EBV capsid IgG IA Qn (S) Positive Abnormal NEGATIVE [facility]-Transplant- [facility] 1800 Work Phone: EBV capsid IgM IA Qn (S) Negative NEGATIVE [facility]- [facility] 1800 Work Phone: EBV early IgM IA Qn (S) Negative NEGATIVE [facility]- [facility] 1800 Work Phone: EBV nuclear IgG IA Qn (S) Positive Abnormal NEGATIVE [facility]plant- [facility] 1800 Work Phone: Nicotine+Metabolites, Serumo n 05-28-2022 Cotinine [Mass/Vol] 194 ng/mL [facility] Work Phone: Nicotine [Mass/Vol] 7 ng/mL [facility] Work Phone: Comment on above: Consistent with use of a nicotine-containing product [id number] hours of specimen collection. Nicotine is metabolizedto cotinine and 2-LK-zmwjxfcs.INTERPRETIVE INFORMATION: Nicotine and Metabolites, Serum or Plasma, [...] developed and its performance characteristics determined by [employer]. It has not been cleared or approved by the [place] Food and Drug Administration. This test was performed in a CLIA certified laboratory and is intended for clinical purposes.Performed By: [facility] [place] [address] [id number] Director: Fabrizio Cruz MD, PhD [id number] e [Mass/Vol] 156 ng/mL [facility] Work Phone: No Panel Informationon 05-28 SEE COMMENT -[facility] - [facility] [place] 1800 Work Phone: Comment on above: HLA CLASS I AB SCREE N,FLOW CYTOMETRY SEE SEPARATE REPORT.Test performed at [facility], [address]th [address] [place] [address] HLA CLASS II AB SCRE EN,FLOW CYTOMETRY SEE SEPARATE REPORT.Test performed at [facility], 6th Floor [id number] [place] [address] SEE SEPARATE REPORT -Tr ansplant- [facility] 1800 Work Phone: Comment on above: Test performed at [facility] Histocompatibility and Immunogenetics Laboratory [facility], 6th Floor [address] [place] [address] Annotation comment [Interpretation] Narrative See Note [facility] Work Phone: Comment on above: INTERPRETIVE [...] developed and its performance characteristics determined by [facility]. It has not been cleared or approved by the US Food and Drug Administration. This test was performed in a CLIA certified laboratory and is intended for clinical purposes.Performed By: [facility] [place] [id number] Director: Fabrizio Cruz MD, PhD 0.0 {/100_WBC} 0.0-0.0 [facility]-Transpl ant- [facility] Work Phone: SEE BELOW [facility]- [facility] - Payments Anytime | Anywhere 1800 Work Phone: Comment on above: . EBV INTERPRETATION CHART. VCA-IGG VCA-IGM NA-IGG EA-IGG. PRIMARY ACUTE +/- +/- - +/-LATE ACUTE + +/- +/- +/-RECOVERING + - - +PREVIOUS INFECTION + - +/- - Canceled [facility]- [facility] - [employer] Anytime | Anywhere 1800 Work Phone: Comment on above: Test performed at [facility] Histocompatibility and Immunogenetics Laboratory [facility], 6th Floor [address] [place] [address] Office VIsit (Pre-Transplant Surgery)on 05-28-2022 Follow-up visit Diagnosis/Problems Assessed Pre-transplant evaluation for kidney transplant (V72.83) (Z01.818) History of end stage renal disease (V13.09) (Z87.448) History of diabetes mellitus (V12.29) (Z86.39) History of chronic obstructive lung disease (V12.69) (Z87.09) History of coronary artery disease (V12.59) (Z86.79) History of Appendectomy History of Hysterectomy Current smoker (305.1) (F17.200) Has access to [employer] Health insurance coverage Living Situation: Supportive [...] Bird Lujan. Referral: Dr. Christy Huerta (tel: [phone] fax: [phone]). I am seeing SANDY DENG at the referring provider's request for surgical suitability for renal transplant candidate listing at [facility]. History of Present Illness Comments: Ms. SANDY [...] [Mass/Vol] 5.3 mg/dL High 2.5 - 4.9 [facility] Comment on above: Result Comment: The performance characteristics of phosphorus testing in heparinized plasma have been validated by the individual laboratory site where testing is performed. Testing on heparinized plasma is not approved by the FDA; however, such approval is not necessary. Performed By: #### H LAS1 #### [facility] [address] [place] [place] [address] Phosphorus, Serumon 05-28-20 22 Phosphate [Mass/Vol] 5.3 mg/dL above high threshold 2.5 - 4.9 [facility] Work Phone: Comment on above: The performance armond acteristics of phosphorus testing in heparinized plasma have been validated by the individual laboratory site where testing is performed. Testing on heparinized plasma is not approved by the FDA; however, such approval is not necessary. SYPHILIS SCREENING WITH REFL EXon 05-28-2022 SYPHILIS TOTAL AB Non-Reactive Normal NONREACTIVE [facility] Comment on above: Result Comment: No s ignificant level of Treponema pallidum antibody detected. Repeat testing in 2 to 4 weeks may be considered if early infection or incubating syphilis infection is suspected. Performed By: #### S YPHR #### [facility] [address] [place], [place] [id number] T. pallidum IgG+IgM IA Ql (S) Non-Reactive See Below [facility] Work Phone: Comment on above: SOURCE: Reference Ra nge: NONREACTIVENo significant level of Treponema pallidum antibody detected. Repeat testing in 2 to 4 weeks may be considered if early infection or incubating syphilis infection is suspected. T-SPOT. TBon 05-28-2022 T-SPOT. TB Passed [facility] Work Phone: T-SPOT. TB 2 1 [facility] Work Phone: T-SPOT. TB 0 1 [facility] Work Phone: Tobacco Screening.on 022 Fall risk assessment a) No falls within the last year [facility] [employer] - [employer] Anytime | Anywhere 1800 Work Phone: Tobacco use status CPHS a) Yes [facility]- [facility] - [facility] Anytime | Anywhere 1800 Work Phone: Tobacco Screening. Yes [facility]-Tra [facility]- [facility] Work Phone: UA MICROSCOPICon 05-28-2022 Mucus Ql (Urine sed) 1+ /LPF Normal [facility] Comment on above: Performed By: #### U SWETHA #### [facility] [address] [place] [address] RBC 2 /HPF Normal 0-5 [facility] Comment on above: Performed By: #### U SWETHA #### [facility] [address] [place] [address] SQUAMOUS EPITH. CELLS 3 /HPF Normal [facility] Comment on above: Performed By: #### U SWETHA #### [facility] [address] [place] [address] WBC 12 /HPF Abnormal 0-5 [facility] Comment on above: Performed By: #### U SWETHA #### [facility] [address] [place] [address] UREA NITROGENon 05-28-2022 Urea nitrogen [Mass/Vol] 47 mg/dL High 6 - 23 [facility] Comment on above: Performed By: #### U SWETHA #### [facility] [address] [place] [address] URINALYSISon 05-28-2022 Appearance (U) CLEAR Normal CLEAR [facility] Comment on above: Performed By: #### H LAS1 #### [facility] [address] [place] [address] Bilirubin Ql (U) Negative Normal NEGATIVE [facility] Comment on above: Performed By: #### H LAS1 #### [facility] [address] [place] [address] Color (U) YELLOW Normal STRAW,YELLOW [facility] Comment on above: Performed By: #### H LAS1 #### [facility] [address] [place] [address] Glucose Ql (U) Negative Normal NEGATIVE [facility] Comment on above: Performed By: #### H LAS1 #### [facility] [address] [place] [address] Hemoglobin Ql (U) Negative Normal NEGATIVE [facility] Comment on above: Performed By: #### H LAS1 #### [facility] [address] [place] [address] Ketones Ql (U) Negative Normal NEGATIVE [facility] Comment on above: Performed By: #### H LAS1 #### [facility] [address] [place] [address] Leukocyte esterase Test strip Ql (U) SMALL (1+) Abnormal NEGATIVE [facility] Comment on above: Performed By: #### H LAS1 #### [facility] [address] [place] [address] Nitrite Ql (U) Negative Normal NEGATIVE [facility] Comment on above: Performed By: #### H LAS1 #### [facility] [address] [place] [address] pH (U) 5.0 [pH] Normal 5.0 - 8.0 [facility] Comment on above: Performed By: #### H LAS1 #### [facility] [address] [place] [address] Protein Ql (U) 100 (2+) Abnormal NEGATIVE [facility] Comment on above: Performed By: #### H LAS1 #### [facility] [address] [place] [address] Specific gravity (U) [Rel density] 1.016 Normal 1.005 - 1.035 [facility] Comment on above: Performed By: #### H LAS1 #### [facility] [address] [place] [address] Urobilinogen (U) [Mass/Vol] mg/dL Normal 0.0 - 1.9 [facility] Comment on above: Performed By: #### H LAS1 #### [facility] [address] [place] [address] Urinalysison 05-28-2022 Color (U) YELLOW See Below [facility] Work Phone: Comment on above: Reference Range: STR AW,YELLOW Glucose Ql (U) Negative NEGATIVE [facility] Work Phone: Ketones Ql (U) Negative NEGATIVE [facility] Work Phone: Leukocyte esterase Test strip Ql (U) SMALL (1+) Abnormal NEGATIVE [facility] Work Phone: pH (U) 5.0 [pH] 5.0 - 8.0 [facility] Work Phone: Protein (U) [Mass/Vol] 100 (2+) Abnormal NEGATIVE [facility] Work Phone: RBC (U) [#/Vol] Negative NEGATIVE [facility]-Transp lant- [facility] Work Phone: Specific gravity (U) [Rel density] 1.016 1 See Below [facility] Work Phone: Comment on above: Reference Range: 1.0 05 - 1.035 Urinalysis Negative NEGATIVE [facility] Work Phone: Comment on above: Reference Range: [...] Work Phone: Urinalysis CLEAR CLEAR [facility]- [facility] 1800 Work Phone: Urinalysis, Microscopicon Urinalysis, Microscopic 1+ [facility]- [facility] [place] [facility] Work Phone: Urinalysis, Microscopic 3 {/HPF} [facility]- [facility] [place] [facility] Work Phone: Urinalysis, Microscopic 2 {/HPF} 0-5 [facility]- [facility] [place] 1800 Work Phone: Urinalysis, Microscopic 12 {/HPF} Abnormal 0-5 [facility]- [facility] [place] 1800 Work Phone: VARICELLA ZOSTER IGG ABon VARICELLA ZOSTER IGG AB Positive Normal NEGATIVE [facility] Comment on above: Result Comment: [...] By: #### H LAS1 #### [facility] [address] [place] [address] Varicella Zoster IgG Antibod yon 05-28-2022 VZV IgG IA Ql (S) Positive NEGATIVE MG-Mora splant- [facility] [place] [address] [...] percentageon 2021 Basophil percentage 3.2 mg/dL 2.5-4.9 [facility] Work Phone: Chloride [Moles/Vol] 104 mmol/L 98-107 [facility] Work Phone: Glucose [Mass/Vol] 92 mg/dL 74-106 [facility] Work Phone: Potassium [Moles/Vol] 4.3 mmol/L 3.5-5.1 [facility] Work Phone: Sodium [Moles/Vol] 137 mmol/L 136-145 [facility] Work Phone: WBC (Bld) [#/Vol] 9.6 10*3/uL 4.4-11.0 [facility] Work Phone: Blood erythrocytes count (nu mber/volume)on 05-02-2022 RBC (Bld) [#/Vol] 4.06 10*6/uL 4.2-5.4 [facility] Work Phone: Blood hemoglobin measurement (mass/volume)on 05-02-2022 Hemoglobin (Bld) [Mass/Vol] 12.1 g/dL 12.0-15.0 [facility] Work Phone: Blood platelet mean volumeon 05-02-2022 Platelet mean volume (Bld) [Entitic vol] 9.5 fL 6.2-12.0 [facility] Work Phone: Determination of erythrocyte mean corpuscular volume (MCV)on 05-02-2022 MCV (RBC) [Entitic vol] 95.3 fL 81-99 [facility] Work Phone: Hematocrit Auto (Bld) [Volum e fraction]on 05-02-2022 Hematocrit (Bld) [Volume fraction] 38.7 % 37-47 [facility] Work Phone: Laboratory - Chemistry and C hemistry - challengeon 05-02-2022 CO2 [Moles/Vol] 29.0 mmol/L 21.0-32.0 [facility] Work Phone: Urea nitrogen/Creatinine [Mass ratio] 21.2 mg/mg 10-20 [facility] Work Phone: Laboratory - Hematology and Cell countson 05-02-2022 Erythrocyte distribution width (RBC) [Entitic vol] 46.5 fL 35.1-43.9 [facility] Work Phone: Erythrocyte distribution width (RBC) [Ratio] 13.2 % 11.6-14.6 [facility] Work Phone: MCH (RBC) [Entitic mass] 29.8 pg 27.0-32.0 [facility] Work Phone: MCHC Auto (RBC) [Mass/Vol]on 05-02-2022 MCHC (RBC) [Mass/Vol] 31.3 g/dL 32-36 [facility] Work Phone: No Panel Informationon 05-02 Estimated GFR (MDRD) Amer 35 mL/min >60 [facility] Work Phone: Comment on above: GFR Calc Estimated GFR (MDRD) Non-Af Amer 29 mL/min >60 [facility] Work Phone: Comment on above: Non- GFR Calc Parathyroid Hormone (Intact) 40.1 pg/mL 18.4-80.1 [facility] Work Phone: Platelets bldon 05-02-2022 Platelets (Bld) [#/Vol] 268 10*3/uL 150-450 [facility] Work Phone: Serum or plasma albumin lesly urement (mass/volume)on 05-02-2022 Albumin [Mass/Vol] 3.4 g/dL 3.2-5.0 [facility] Work Phone: Serum or plasma calcium lesly urement (mass/volume)on 05-02-2022 Calcium [Mass/Vol] 9.7 mg/dL 8.5-10.1 [facility] Work Phone: Serum or plasma creatinine m easurement (mass/volume)on 05-02-2022 Creatinine [Mass/Vol] 1.89 mg/dL 0.55-1.02 [facility] Work Phone: Comment on above: The validity of the calculated GFR & GFRAA in patients over 70 years has not been determined. Clinical correlation is essential. Serum or plasma urea nitroge n measurement (mass/volume)on 05-02-2022 Urea nitrogen [Mass/Vol] 40 mg/dL 7-18 [facility] Work Phone: Urine creatinine measurement (mass/volume)on 05-02-2022 Creatinine (U) [Mass/Vol] 72.60 mg/dL NO RANGE EST. [facility] Work Phone: Urine protein measurement (m ass/volume)on 05-02-2022 Protein (U) [Mass/Vol] 114.6 mg/dL 0.0-11.8 [facility] Work Phone: Urine protein/creatinine mas s ratioon 05-02-2022 Protein/Creatinine (U) [Mass ratio] 1579 mg/g CRE 0-200 [facility] Work Phone: Absolute lymphocyte counton 02-08-2022 Lymphocytes Auto (Unsp spec) [#/Vol] 1.86 10*3/uL 0.83-4.51 [facility] Work Phone: Basophil percentageon 2021 Amylase [Catalytic activity/Vol] 57 U/L 25-115 [facility] Work Phone: Basophils/100 WBC (Bld) 0.7 % 0-1 [facility] Work Phone: Bilirubin [Mass/Vol] 0.30 mg/dL 0.20-1.00 [facility] Work Phone: Comment on above: For patients on eltr ombopag therapy, use of Dimension [place] TBIL is not recommended. Chloride [Moles/Vol] 106 mmol/L 98-107 [facility] Work Phone: Eosinophils/100 WBC (Bld) 5.6 % 0-5 [facility] Work Phone: Glucose [Mass/Vol] 180 mg/dL 74-106 [facility] Work Phone: Comment on above: Fasting Glucose resu lt greater than or equal to 126 mg/dL suggests DIABETES MELLITUS per A.D.A. criteria. Neutrophils (Bld) [#/Vol] 5.1 10*3/uL 2.0-7.7 [facility] Work Phone: Neutrophils/100 WBC (Bld) 63.4 % 47-70 [facility] Work Phone: Potassium [Moles/Vol] 5.1 mmol/L 3.5-5.1 [facility] Work Phone: Protein [Mass/Vol] 7.7 g/dL 6.4-8.2 [facility] Work Phone: Sodium [Moles/Vol] 136 mmol/L 136-145 [facility] Work Phone: WBC (Bld) [#/Vol] 8.1 10*3/uL 4.4-11.0 [facility] Work Phone: Blood erythrocytes count (nu mber/volume)on 02-08-2022 RBC (Bld) [#/Vol] 4.10 10*6/uL 4.2-5.4 [facility] Work Phone: Blood hemoglobin measurement (mass/volume)on 02-08-2022 Hemoglobin (Bld) [Mass/Vol] 11.9 g/dL 12.0-15.0 [facility] Work Phone: Blood lymphocytes/100 leukoc yteson 02-08-2022 Lymphocytes/100 WBC (Bld) 23.0 % 19-41 [facility] Work Phone: Blood monocytes/100 leukocyt eson 02-08-2022 Monocytes/100 WBC (Bld) 6.9 % 0-10 [facility] Work Phone: Blood platelet mean volumeon 02-08-2022 Platelet mean volume (Bld) [Entitic vol] 9.9 fL 6.2-12.0 [facility] Work Phone: Determination of erythrocyte mean corpuscular volume (MCV)on 02-08-2022 MCV (RBC) [Entitic vol] 94.1 fL 81-99 [facility] Work Phone: Hematocrit Auto (Bld) [Volum e fraction]on 02-08-2022 Hematocrit (Bld) [Volume fraction] 38.6 % 37-47 [facility] Work Phone: Laboratory - Chemistry and C hemistry - challengeon 02-08-2022 ALP [Catalytic activity/Vol] 87 U/L 45-117 [facility] Work Phone: ALT [Catalytic activity/Vol] 16 U/L 13-56 [facility] Work Phone: CO2 [Moles/Vol] 27.0 mmol/L 21.0-32.0 [facility] Work Phone: Globulin (S) [Mass/Vol] 4.3 g/dL 2.2-4.2 [facility] Work Phone: Lipase [Catalytic activity/Vol] 55 U/L 73-393 [facility] Work Phone: Urea nitrogen/Creatinine [Mass ratio] 20.6 mg/mg 10-20 [facility] Work Phone: Laboratory - Hematology and Cell countson 02-08-2022 Erythrocyte distribution width (RBC) [Entitic vol] 46.5 fL 35.1-43.9 [facility] Work Phone: Erythrocyte distribution width (RBC) [Ratio] 13.3 % 11.6-14.6 [facility] Work Phone: Immature granulocytes/100 WBC (Bld) 0.400 % 0.0-0.9 [facility] Work Phone: Comment on above: IG% - Immature Granu locytes (promyelocytes, myelocytes and metamyelocytes) > 1% indicates that a LEFT SHIFT is Present. MCH (RBC) [Entitic mass] 29.0 pg 27.0-32.0 [facility] Work Phone: Nucleated RBC/100 WBC (Bld) [Ratio] 0 % 0-5 [facility] Work Phone: MCHC Auto (RBC) [Mass/Vol]on 02-08-2022 MCHC (RBC) [Mass/Vol] 30.8 g/dL 32-36 [facility] Work Phone: No Panel Informationon 02-08 Estimated GFR (MDRD) Amer 28 mL/min >60 [facility] Work Phone: Comment on above: GFR Calc Estimated GFR (MDRD) Non-Af Amer 23 mL/min >60 [facility] Work Phone: Comment on above: Non- GFR Calc Platelets bldon 02-08-2022 Platelets (Bld) [#/Vol] 235 10*3/uL 150-450 [facility] Work Phone: Serum or plasma albumin lesly urement (mass/volume)on 02-08-2022 Albumin [Mass/Vol] 3.4 g/dL 3.2-5.0 [facility] Work Phone: Serum or plasma albumin/glob ulin mass ratioon 02-08-2022 Albumin/Globulin [Mass ratio] 0.8 {ratio} 0.9-2.4 [facility] Work Phone: Serum or plasma calcium lesly urement (mass/volume)on 02-08-2022 Calcium [Mass/Vol] 9.6 mg/dL 8.5-10.1 [facility] Work Phone: Serum or plasma creatinine m easurement (mass/volume)on 02-08-2022 Creatinine [Mass/Vol] 2.28 mg/dL 0.55-1.02 [facility] Work Phone: Comment on above: The validity of the calculated GFR & GFRAA in patients over 70 years has not been determined. Clinical correlation is essential. Serum or plasma urea nitroge n measurement (mass/volume)on 02-08-2022 Urea nitrogen [Mass/Vol] 47 mg/dL 7-18 [facility] Work Phone: Thin prep Papanicolaou smear with manual screeningon 02-08-2022 Thin prep Papanicolaou smear with manual screening 16 U/L 15-37 [facility] Work Phone: Thin prep Papanicolaou smear with manual screening 3 5-15 [facility] Work Phone: Laboratory - Hematology and Cell countson 01-10-2022 HbA1c (Bld) [Mass fraction] 7.9 % [facility] Work Phone: Basophil percentageon 2021 Basophil percentage 4.8 mg/dL 2.5-4.9 [facility] Work Phone: Chloride [Moles/Vol] 108 mmol/L 98-107 [facility] Work Phone: Glucose [Mass/Vol] 204 mg/dL 74-106 [facility] Work Phone: Comment on above: Glucose result great er than or equal to 200 mg/dLsuggests DIABETES MELLITUS per A.D.A. criteria. Potassium [Moles/Vol] 4.7 mmol/L 3.5-5.1 [facility] Work Phone: Sodium [Moles/Vol] 138 mmol/L 136-145 [facility] Work Phone: WBC (Bld) [#/Vol] 7.8 10*3/uL 4.4-11.0 [facility] Work Phone: Blood erythrocytes count (nu mber/volume)on 12-24-2021 RBC (Bld) [#/Vol] 3.67 10*6/uL 4.2-5.4 [facility] Work Phone: Blood hemoglobin measurement (mass/volume)on 12-24-2021 Hemoglobin (Bld) [Mass/Vol] 10.9 g/dL 12.0-15.0 [facility] Work Phone: Blood platelet mean volumeon 12-24-2021 Platelet mean volume (Bld) [Entitic vol] 9.8 fL 6.2-12.0 [facility] Work Phone: Determination of erythrocyte mean corpuscular volume (MCV)on 12-24-2021 MCV (RBC) [Entitic vol] 92.1 fL 81-99 [facility] Work Phone: Hematocrit Auto (Bld) [Volum e fraction]on 12-24-2021 Hematocrit (Bld) [Volume fraction] 33.8 % 37-47 [facility] Work Phone: Laboratory - Chemistry and C hemistry - challengeon 12-24-2021 CO2 [Moles/Vol] 25.0 mmol/L 21.0-32.0 [facility] Work Phone: Urea nitrogen/Creatinine [Mass ratio] 23.2 mg/mg 10-20 [facility] Work Phone: Laboratory - Hematology and Cell countson 12-24-2021 Erythrocyte distribution width (RBC) [Entitic vol] 47.2 fL 35.1-43.9 [facility] Work Phone: Erythrocyte distribution width (RBC) [Ratio] 14.0 % 11.6-14.6 [facility] Work Phone: MCH (RBC) [Entitic mass] 29.7 pg 27.0-32.0 [facility] Work Phone: MCHC Auto (RBC) [Mass/Vol]on 12-24-2021 MCHC (RBC) [Mass/Vol] 32.2 g/dL 32-36 [facility] Work Phone: No Panel Informationon 12-24 Estimated GFR (MDRD) Amer 36 mL/min >60 [facility] Work Phone: Comment on above: GFR Calc Estimated GFR (MDRD) Non-Af Amer 29 mL/min >60 [facility] Work Phone: Comment on above: Non- GFR Calc Parathyroid Hormone (Intact) 55.7 pg/mL 18.4-80.1 [facility] Work Phone: Vitamin D 25-Hydroxy 45.6 ng/mL [facility] Work Phone: Comment on above: Vitamin D 25(OH) Sta tus Range Deficiency <20 ng/mL (50nmol/L) Insufficiency 20 - 30 ng/mL (50 - 75 nmol/L) Sufficiency 30 - 100 ng/mL (75 - 250 nmol/L) Toxicity >100 ng/mL (>250 nmol/L) Platelets bldon 12-24-2021 Platelets (Bld) [#/Vol] 225 10*3/uL 150-450 [facility] Work Phone: Serum or plasma albumin lesly urement (mass/volume)on 12-24-2021 Albumin [Mass/Vol] 3.2 g/dL 3.2-5.0 [facility] Work Phone: Serum or plasma calcium lesly urement (mass/volume)on 12-24-2021 Calcium [Mass/Vol] 8.9 mg/dL 8.5-10.1 [facility] Work Phone: Serum or plasma creatinine m easurement (mass/volume)on 12-24-2021 Creatinine [Mass/Vol] 1.85 mg/dL 0.55-1.02 [facility] Work Phone: Comment on above: The validity of the calculated GFR & GFRAA in patients over 70 years has not been determined. Clinical correlation is essential. Serum or plasma urea nitroge n measurement (mass/volume)on 12-24-2021 Urea nitrogen [Mass/Vol] 43 mg/dL 7-18 [facility] Work Phone: Basophil percentageon 2021 Bilirubin [Mass/Vol] 0.30 mg/dL 0.20-1.00 [facility] Work Phone: Comment on above: For patients on eltr ombopag therapy, use of Dimension [place] TBIL is not recommended. Chloride [Moles/Vol] 104 mmol/L 98-107 [facility] Work Phone: Cholesterol [Mass/Vol] 119 mg/dL <200 [facility] Work Phone: Comment on above: <200 mg/dL Desirable 200-240 mg/dL Borderline >240 mg/dL High Risk Glucose [Mass/Vol] 293 mg/dL 74-106 [facility] Work Phone: Comment on above: Glucose result great er than or equal to 200 mg/dLsuggests DIABETES MELLITUS per A.D.A. criteria. Potassium [Moles/Vol] 5.0 mmol/L 3.5-5.1 [facility] Work Phone: Protein [Mass/Vol] 7.2 g/dL 6.4-8.2 [facility] Work Phone: Sodium [Moles/Vol] 136 mmol/L 136-145 [facility] Work Phone: Triglyceride [Mass/Vol] 79 mg/dL [facility] Work Phone: Comment on above: The drugs N-Acetylcy steine and Metamizole may falsely depress this assay.Serum Triglycerides Reference Interval Normal <150 mg/dL Borderline high 150 - 199 mg/dL High 200 - 499 mg/dL Very High > or = 500 mg/dL WBC (Bld) [#/Vol] 6.4 10*3/uL 4.4-11.0 [facility] Work Phone: Blood erythrocytes count (nu mber/volume)on 12-19-2021 RBC (Bld) [#/Vol] 3.58 10*6/uL 4.2-5.4 [facility] Work Phone: Blood hemoglobin measurement (mass/volume)on 12-19-2021 Hemoglobin (Bld) [Mass/Vol] 10.4 g/dL 12.0-15.0 [facility] Work Phone: Blood platelet mean volumeon 12-19-2021 Platelet mean volume (Bld) [Entitic vol] 10.6 fL 6.2-12.0 [facility] Work Phone: Determination of erythrocyte mean corpuscular volume (MCV)on 12-19-2021 MCV (RBC) [Entitic vol] 93.9 fL 81-99 [facility] Work Phone: Hematocrit Auto (Bld) [Volum e fraction]on 12-19-2021 Hematocrit (Bld) [Volume fraction] 33.6 % 37-47 [facility] Work Phone: Iron measurement (mass/mass) on 12-19-2021 Iron (Unsp spec) [Mass/Mass] 50 ug/dL 50-170 [facility] Work Phone: Laboratory - Chemistry and C hemistry - challengeon 12-19-2021 ALP [Catalytic activity/Vol] 90 U/L 45-117 [facility] Work Phone: ALT [Catalytic activity/Vol] 21 U/L 13-56 [facility] Work Phone: CO2 [Moles/Vol] 26.0 mmol/L 21.0-32.0 [facility] Work Phone: Globulin (S) [Mass/Vol] 4.1 g/dL 2.2-4.2 [facility] Work Phone: Urea nitrogen/Creatinine [Mass ratio] 22.0 mg/mg 10-20 [facility] Work Phone: Laboratory - Hematology and Cell countson 12-19-2021 Erythrocyte distribution width (RBC) [Entitic vol] 47.5 fL 35.1-43.9 [facility] Work Phone: Erythrocyte distribution width (RBC) [Ratio] 13.8 % 11.6-14.6 [facility] Work Phone: MCH (RBC) [Entitic mass] 29.1 pg 27.0-32.0 [facility] Work Phone: MCHC Auto (RBC) [Mass/Vol]on 12-19-2021 MCHC (RBC) [Mass/Vol] 31.0 g/dL 32-36 [facility] Work Phone: No Panel Informationon 12-19 Estimated GFR (MDRD) Amer 35 mL/min >60 [facility] Work Phone: Comment on above: GFR Calc Estimated GFR (MDRD) Non-Af Amer 29 mL/min >60 [facility] Work Phone: Comment on above: Non- GFR Calc Parathyroid Hormone (Intact) 59.6 pg/mL 18.4-80.1 [facility] Work Phone: Thyroid Stimulating Hormone (TSH) 1.48 uIU/mL 0.358-3.74 [facility] Work Phone: Vitamin D 25-Hydroxy 46.2 ng/mL [facility] Work Phone: Comment on above: Vitamin D 25(OH) Sta tus Range Deficiency <20 ng/mL (50nmol/L) Insufficiency 20 - 30 ng/mL (50 - 75 nmol/L) Sufficiency 30 - 100 ng/mL (75 - 250 nmol/L) Toxicity >100 ng/mL (>250 nmol/L) Platelets bldon 12-19-2021 Platelets (Bld) [#/Vol] 237 10*3/uL 150-450 [facility] Work Phone: Serum or plasma albumin lesly urement (mass/volume)on 12-19-2021 Albumin [Mass/Vol] 3.1 g/dL 3.2-5.0 [facility] Work Phone: Serum or plasma albumin/glob ulin mass ratioon 12-19-2021 Albumin/Globulin [Mass ratio] 0.8 {ratio} 0.9-2.4 [facility] Work Phone: Serum or plasma calcium lesly urement (mass/volume)on 12-19-2021 Calcium [Mass/Vol] 8.8 mg/dL 8.5-10.1 [facility] Work Phone: Serum or plasma cholesterol in HDL measurement (mass/volume)on 12-19-2021 Cholesterol in HDL [Mass/Vol] 59 mg/dL [facility] Work Phone: Comment on above: The drugs N-Acetylcy steine and Metamizole may falsely depress this assay. Reference Range HDL <40 mg/dL Low HDL Cholesterol HDL >or= 60 mg/dL High HDL Cholesterol Serum or plasma cholesterol in VLDL measurement (mass/volume)on 12-19-2021 Cholesterol in VLDL [Mass/Vol] 16 mg/dL 5-40 [facility] Work Phone: Serum or plasma creatinine m easurement (mass/volume)on 12-19-2021 Creatinine [Mass/Vol] 1.86 mg/dL 0.55-1.02 [facility] Work Phone: Comment on above: The validity of the calculated GFR & GFRAA in patients over 70 years has not been determined. Clinical correlation is essential. Serum or plasma ferritin allyn surement (mass/volume)on 12-19-2021 Ferritin [Mass/Vol] 38 ng/mL 8-252 [facility] Work Phone: Serum or plasma low density lipoprotein (LDL) cholesterol measurement (mass/volume)on 12-19-2021 Cholesterol in LDL [Mass/Vol] 44 mg/dL 0-130 [facility] Work Phone: Serum or plasma urea nitroge n measurement (mass/volume)on 12-19-2021 Urea nitrogen [Mass/Vol] 41 mg/dL 7-18 [facility] Work Phone: Thin prep Papanicolaou smear with manual screeningon 12-19-2021 Thin prep Papanicolaou smear with manual screening 15 U/L 15-37 [facility] Work Phone: Thin prep Papanicolaou smear with manual screening 6 5-15 [facility] Work Phone: Office Visit: Diabetes follo w upon 05-03-2017 Dietary management education, guidance, and counseling (procedure) yes Invalid Interpretation Code [facility] Work Phone: Documentation of current medications (procedure) Done Invalid Interpretation Code [facility] Work Phone: Fall risk assessment Fall risk assessment Invali d Interpretation Code [facility] Work Phone: Smoking cessation education (procedure) yes Invalid Interpretation Code [facility] Work Phone: Tobacco smoking status NHIS Former Invalid Interpretation Code [facility] Work Phone: Tobacco use [facility] Current every day smoker Invalid Interpretation Code [facility] Work Phone: Office Visit: Diabetic Evalu ationon 02-18-2017 Adolescent depression screening assessment Adolescent depression screening assessment Invalid Interpretation Code [facility] Work Phone: Fall risk assessment No Invalid Interpretation Code [facility] Work Phone: Chart Maintenanceon 01-08-20 17 HbA1c 10.0 % Invalid Interpretation Code [facility] Work Phone: Office Visit: Diabetic Evalu ationon 11-04-2011 General categories [interpretation] of Cervical or vaginal smear or scraping by Cyto stain Hysteectomy Invalid Interpretation Code [facility] Work Phone: Vital Signs Date Time Vital Sign Value Performing Clinician Facility 05-20-2025 22:40-0400 Body temperature 97.8 [degF] Dr. Bird Lujan MD Work Phone: [facility] 05-20-2025 22:40-0400 Diastolic blood pressure 65 mm[Hg] Dr. Bird Lujan MD Work Phone: [facility] 05-20-2025 22:40-0400 Heart rate 52 /min Dr. Bird Lujan MD Work Phone: [facility] 05-20-2025 22:40-0400 Respiratory rate 16 /min Dr. Bird Lujan MD Work Phone: [facility] 05-20-2025 22:40-0400 SaO2% (BldA) [Mass fraction] 100 % Dr. Bird Lujan MD Work Phone: [facility] 05-20-2025 22:40-0400 Systolic blood pressure 194 mm[Hg] Dr. Bird Lujan MD Work Phone: [facility] 05-20-2025 22:19-0400 Body mass index (BMI) [Ratio] 17.9 kg/m2 Dr. Bird Lujan MD Work Phone: 4(247)371-352343 [place] [address] 05-20-2025 22:19-0400 Body weight 50.[address] Bird Lujan MD Work Phone: 8(997)625-211835 [place] [address] 05-20-2025 20:21-0400 Body height 167.[address] Bird Lujan MD Work Phone: 3(191)096-540635 [place] [address] 05-20-2025 20:21-0400 Inhaled oxygen flow rate 3 L/min Dr. Bird Lujan MD Work Phone: 6(391)075-013335 [place] [address] 05-18-2025 07:26-0400 Body mass index (BMI) [Ratio] 16 kg/m2 Dr. Bird Lujan MD Work Phone: 7(035)813-695335 [place] [address] 05-18-2025 07:26-0400 Body temperature 97.2 [degF] Dr. Bird Lujan MD Work Phone: 4(522)994-720535 [place] [address] 05-18-2025 07:26-0400 Body weight 44.[address] Bird Lujan MD Work Phone: 9(514)048-944043 [place] [address] 05-18-2025 07:26-0400 Diastolic blood pressure 59 mm[Hg] Dr. Bird Lujan MD Work Phone: 0(507)674-139935 [place] [address] 05-18-2025 07:26-0400 Heart rate 56 /min Dr. Bird Lujan MD Work Phone: 1(808)193-059335 [place] [address] 05-18-2025 07:26-0400 Inhaled oxygen flow rate 3 L/min Dr. Bird Lujan MD Work Phone: 1(902)954-022266 [address] 05-18-2025 07:26-0400 Respiratory rate 16 /min Dr. Bird Lujan MD Work Phone: 2(369)064-738335 [place] [address] 05-18-2025 07:26-0400 SaO2% (BldA) [Mass fraction] 95 % Dr. Bird Lujan MD Work Phone: 0(007)733-003635 [place] [address] 05-18-2025 07:26-0400 Systolic blood pressure 142 mm[Hg] Dr. Bird Lujan MD Work Phone: 8(873)261-585735 [place] [address] 05-08-2025 12:50-0400 Body temperature 98.6 [degF] Dr. Bird Lujan MD Work Phone: 0(587)069-330635 [place] [address] 05-08-2025 12:50-0400 Diastolic blood pressure 65 mm[Hg] Dr. Bird Lujan MD Work Phone: 4(029)132-269935 [place] [address] 05-08-2025 12:50-0400 Heart rate 61 /min Dr. Bird Lujan MD Work Phone: 8(081)411-632235 [place] [address] 05-08-2025 12:50-0400 Respiratory rate 16 /min Dr. Bird Lujan MD Work Phone: 1(788)152-331235 [place] [address] 05-08-2025 12:50-0400 SaO2% (BldA) [Mass fraction] 100 % Dr. Bird Lujan MD Work Phone: 0(532)626-137635 [place] [address] 05-08-2025 12:50-0400 Systolic blood pressure 171 mm[Hg] Dr. Bird uLjan MD Work Phone: 3(218)312-375835 [place] [address] 05-08-2025 09:13-0400 Inhaled oxygen flow rate 2 L/min Dr. Bird Lujan MD Work Phone: 9(830)458-876235 [place] [address] 05-08-2025 08:01-0400 Body height 167.[address] Bird Lujan MD Work Phone: 7(350)824-408235 [place] [address] 05-08-2025 08:01-0400 Body mass index (BMI) [Ratio] 16.3 kg/m2 Dr. Bird Lujan MD Work Phone: [facility] 05-08-2025 08:01-0400 Body weight [address] Bird Lujan MD Work Phone: [facility] 04-09-2025 13:59-0400 Body temperature 97.8 [degF] Dr. Bird Lujan MD Work Phone: [facility] 04-09-2025 13:59-0400 Diastolic blood pressure 78 mm[Hg] Dr. Bird Lujan MD Work Phone: [facility] 04-09-2025 13:59-0400 Heart rate 50 /min Dr. Bird Lujan MD Work Phone: [facility] 04-09-2025 13:59-0400 Respiratory rate 16 /min Dr. Bird Lujan MD Work Phone: [facility] 04-09-2025 13:59-0400 SaO2% (BldA) [Mass fraction] 100 % Dr. Bird Lujan MD Work Phone: [facility] 04-09-2025 13:59-0400 Systolic blood pressure 163 mm[Hg] Dr. Bird Lujan MD Work Phone: [facility] 04-09-2025 12:22-0400 Body height 167.[address] Bird Lujan MD Work Phone: [facility] 04-09-2025 12:22-0400 Inhaled oxygen flow rate 3 L/min Dr. Bird Lujan MD Work Phone: [facility] 03-22-2025 13:04-0400 Body height 167.[address] Christy Huerta DO Work Phone: [facility] 03-22-2025 13:04-0400 Body temperature 98.2 [degF] Dr. Christy Huerta DO Work Phone: [facility] 03-22-2025 13:04-0400 Diastolic blood pressure 66 mm[Hg] Dr. Christy Huerta DO Work Phone: [facility] 03-22-2025 13:04-0400 Heart rate 55 /min Dr. Christy Huerta DO Work Phone: [facility] 03-22-2025 13:04-0400 Respiratory rate 16 /min Dr. Christy Huerta DO Work Phone: [facility] 03-22-2025 13:04-0400 SaO2% (BldA) [Mass fraction] 100 % Dr. Christy Huerta DO Work Phone: [facility] 03-22-2025 13:04-0400 Systolic blood pressure 177 mm[Hg] Dr. Christy Huerta DO Work Phone: 2(204)877-664625 [place] [address] 01-27-2025 08:42-0400 Body mass index (BMI) [Ratio] 17.2 kg/m2 Dr. Christy Huerta DO Work Phone: 3(542)411-792525 [place] [address] 01-27-2025 08:42-0400 Body weight 48.[address] Christy Huerta DO Work Phone: 0(686)459-359725 [place] [address] 01-27-2025 08:42-0400 Diastolic blood pressure 72 mm[Hg] Dr. Christy Huerta DO Work Phone: 1(952)412-517425 [place] [address] 01-27-2025 08:42-0400 Heart rate 65 /min Dr. Christy Huerta DO Work Phone: [facility] 01-27-2025 08:42-0400 Inhaled oxygen flow rate 3 L/min Dr. Christy Huerta DO Work Phone: [facility] 01-27-2025 08:42-0400 SaO2% (BldA) [Mass fraction] 99 % Dr. Christy Huerta DO Work Phone: [facility] 01-27-2025 08:42-0400 Systolic blood pressure 172 mm[Hg] Dr. Christy Huerta DO Work Phone: [facility] 01-11-2025 15:17-0400 Body temperature 97.8 [degF] Dr. Bird Lujan MD Work Phone: [facility] 01-11-2025 15:17-0400 Body weight 50.[address] Bird Lujan MD Work Phone: [facility] 01-11-2025 15:17-0400 Diastolic blood pressure 52 mm[Hg] Dr. Bird Lujan MD Work Phone: [facility] 01-11-2025 15:17-0400 Heart rate 60 /min Dr. Bird Lujan MD Work Phone: 9(923)078-656643 [place] [address] 01-11-2025 15:17-0400 Inhaled oxygen flow rate 3 L/min Dr. Bird Lujan MD Work Phone: 4(883)409-352743 [place] [address] 01-11-2025 15:17-0400 Respiratory rate 16 /min Dr. Bird Lujan MD Work Phone: 7(030)072-586143 [place] [address] 01-11-2025 15:17-0400 SaO2% (BldA) [Mass fraction] 100 % Dr. Bird Lujan MD Work Phone: [facility] 01-11-2025 15:17-0400 Systolic blood pressure 125 mm[Hg] Dr. Bird Lujan MD Work Phone: [facility] 01-10-2025 09:10-0400 Body height 167.[address] Bird Lujan MD Work Phone: [facility] 01-06-2025 09:46-0500 Inhaled oxygen flow rate 2 L/min Dr. Bird Lujan MD Work Phone: 3(435)468-643643 [place] [address] 01-06-2025 08:32-0500 Heart rate 65 /min Dr. Bird Lujan MD Work Phone: [facility] 01-06-2025 08:27-0500 Body temperature 97.6 [degF] Dr. Bird Lujan MD Work Phone: 4(011)608-208543 [place] [address] 01-06-2025 08:27-0500 Diastolic blood pressure 54 mm[Hg] Dr. Bird Lujan MD Work Phone: [facility] 01-06-2025 08:27-0500 Respiratory rate 18 /min Dr. Bird Lujan MD Work Phone: [facility] 01-06-2025 08:27-0500 SaO2% (BldA) [Mass fraction] 99 % Dr. Bird Lujan MD Work Phone: 5(793)095-962743 [place] [address] 01-06-2025 08:27-0500 Systolic blood pressure 143 mm[Hg] Dr. Bird Lujan MD Work Phone: 0(691)094-812435 [place] [address] 01-05-2025 16:00-0500 Body mass index (BMI) [Ratio] 16.5 kg/m2 Dr. Bird Lujan MD Work Phone: 2(861)588-586543 [place] [address] 01-05-2025 16:00-0500 Body weight 46.[address] Bird Lujan MD Work Phone: 6(037)227-142043 [place] [address] 01-05-2025 14:33-0500 Inhaled oxygen concentration 30 % Dr. Bird Lujan MD Work Phone: 7(491)455-918066 [address] 12-28-2024 19:34-0500 Body temperature 97.7 [degF] Dr. Bird Lujan MD Work Phone: 5(250)844-510743 [place] [address] 12-28-2024 19:34-0500 Diastolic blood pressure 54 mm[Hg] Dr. Bird Lujan MD Work Phone: 6(827)802-019343 [place] [address] 12-28-2024 19:34-0500 Heart rate 61 /min Dr. Bird Lujan MD Work Phone: [facility] 12-28-2024 19:34-0500 Respiratory rate 16 /min Dr. Bird Lujan MD Work Phone: [facility] 12-28-2024 19:34-0500 SaO2% (BldA) [Mass fraction] 100 % Dr. Bird Lujan MD Work Phone: [facility] 12-28-2024 19:34-0500 Systolic blood pressure 118 mm[Hg] Dr. Bird Lujan MD Work Phone: [facility] 12-28-2024 13:56-0500 Inhaled oxygen flow rate 6 L/min Dr. Bird Lujan MD Work Phone: [facility] 12-28-2024 10:12-0500 Body mass index (BMI) [Ratio] 17.8 kg/m2 Dr. Bird Lujan MD Work Phone: [facility] 12-28-2024 10:12-0500 Body weight [address] Bird Lujan MD Work Phone: 9(927)360-756243 [place] [address] 12-16-2024 13:53-0500 Body mass index (BMI) [Ratio] 17.4 kg/m2 Dr. Bird Lujan MD Work Phone: 7(843)872-922266 [address] 12-16-2024 13:53-0500 Body weight 48.[address] Bird Lujan MD Work Phone: 1(383)152-303143 [place] [address] 12-16-2024 13:53-0500 Diastolic blood pressure 71 mm[Hg] Dr. Bird Lujan MD Work Phone: [facility] 12-16-2024 13:53-0500 Heart rate 61 /min Dr. Bird Lujan MD Work Phone: [facility] 12-16-2024 13:53-0500 Inhaled oxygen flow rate 3 L/min Dr. Bird Lujan MD Work Phone: [facility] 12-16-2024 13:53-0500 Respiratory rate 18 /min Dr. Bird Lujan MD Work Phone: [facility] 12-16-2024 13:53-0500 SaO2% (BldA) [Mass fraction] 100 % Dr. Bird Lujan MD Work Phone: [facility] 12-16-2024 13:53-0500 Systolic blood pressure 164 mm[Hg] Dr. Bird Lujan MD Work Phone: [facility] 12-02-2024 14:48-0500 Body temperature 98.4 [degF] Dr. Bird Lujan MD Work Phone: [facility] 12-02-2024 14:48-0500 Body weight 49.[address] Bird Lujan MD Work Phone: 2(442)632-797566 [address] 12-02-2024 14:48-0500 Diastolic blood pressure 65 mm[Hg] Dr. Bird Lujan MD Work Phone: 5(505)095-953135 [place] [address] 12-02-2024 14:48-0500 Heart rate 65 /min Dr. Bird Lujan MD Work Phone: 4(794)290-909535 [place] [address] 12-02-2024 14:48-0500 Inhaled oxygen flow rate 3 L/min Dr. Bird Lujan MD Work Phone: 2(553)758-735343 [place] [address] 12-02-2024 14:48-0500 Respiratory rate 16 /min Dr. Bird Lujan MD Work Phone: 6(918)237-152835 [place] [address] 12-02-2024 14:48-0500 SaO2% (BldA) [Mass fraction] 99 % Dr. Bird Lujan MD Work Phone: 3(568)059-687143 [place] [address] 12-02-2024 14:48-0500 Systolic blood pressure 161 mm[Hg] Dr. Bird Lujan MD Work Phone: [facility] 11-20-2024 23:26-0500 Body temperature 98.3 [degF] Dr. Bird Lujan MD Work Phone: [facility] 11-20-2024 23:26-0500 Diastolic blood pressure 49 mm[Hg] Dr. Bird Lujan MD Work Phone: [facility] 11-20-2024 23:26-0500 Heart rate 73 /min Dr. Bird Lujan MD Work Phone: [facility] 11-20-2024 23:26-0500 Respiratory rate 19 /min Dr. Bird Lujan MD Work Phone: 2(431)572-953935 [place] [address] 11-20-2024 23:26-0500 SaO2% (BldA) [Mass fraction] 100 % Dr. Bird Lujan MD Work Phone: 4(187)156-405735 [place] [address] 11-20-2024 23:26-0500 Systolic blood pressure 119 mm[Hg] Dr. Bird Lujan MD Work Phone: 9(898)240-620635 [place] [address] 11-20-2024 18:44-0500 Body mass index (BMI) [Ratio] 17.9 kg/m2 Dr. Bird Lujan MD Work Phone: 0(222)222-586135 [place] [address] 11-20-2024 18:44-0500 Body weight 50.[address] Bird Lujan MD Work Phone: 2(548)182-902235 [place] [address] 11-20-2024 18:44-0500 Inhaled oxygen flow rate 3 L/min Dr. Bird Lujan MD Work Phone: 1(077)084-065635 [place] [address] 11-04-2024 16:07-0500 Body mass index (BMI) [Ratio] 18.1 kg/m2 Dr. Bird Lujan MD Work Phone: 5(412)929-539835 [place] [address] 11-04-2024 16:07-0500 Body temperature 97.2 [degF] Dr. Bird Lujan MD Work Phone: 9(308)715-685335 [place] [address] 11-04-2024 16:07-0500 Body weight 50.[address] Bird Lujan MD Work Phone: 6(326)698-866035 [place] [address] 11-04-2024 16:07-0500 Diastolic blood pressure 84 mm[Hg] Dr. Bird Lujan MD Work Phone: 9(225)906-959843 [place] [address] 11-04-2024 16:07-0500 Heart rate 72 /min Dr. Bird Lujan MD Work Phone: 2(885)285-531535 [place] [address] 11-04-2024 16:07-0500 Respiratory rate 15 /min Dr. Bird Lujan MD Work Phone: 0(373)205-351743 [place] [address] 11-04-2024 16:07-0500 SaO2% (BldA) [Mass fraction] 100 % Dr. Bird Lujan MD Work Phone: 5(867)630-774443 [place] [address] 11-04-2024 16:07-0500 Systolic blood pressure 194 mm[Hg] Dr. Bird Lujan MD Work Phone: 8(773)893-728235 [place] [address] 11-04-2024 15:51-0500 Diastolic blood pressure 82 mm[Hg] Dr. Bird Lujan MD Work Phone: 6(702)255-683535 [place] [address] 11-04-2024 15:51-0500 Systolic blood pressure 218 mm[Hg] Dr. Bird Lujan MD Work Phone: 1(649)870-774835 [place] [address] 11-04-2024 08:00-0500 Body mass index (BMI) [Ratio] 18.1 kg/m2 Dr. Bird Lujan MD Work Phone: 4(634)487-685835 [place] [address] 11-04-2024 08:00-0500 Body temperature 97.4 [degF] Dr. Bird Lujan MD Work Phone: 6(411)196-403735 [place] [address] 11-04-2024 08:00-0500 Body weight 50.[address] Bird Lujan MD Work Phone: 4(005)650-093035 [place] [address] 11-04-2024 08:00-0500 Heart rate 75 /min Dr. Bird Lujan MD Work Phone: 1(875)747-654935 [place] [address] 11-04-2024 08:00-0500 Inhaled oxygen flow rate 3 L/min Dr. Bird Lujan MD Work Phone: 2(842)542-186835 [place] [address] 11-04-2024 08:00-0500 Respiratory rate 20 /min Dr. Bird Lujan MD Work Phone: 9(276)587-951535 [place] [address] 11-04-2024 08:00-0500 SaO2% (BldA) [Mass fraction] 99 % Dr. Bird Lujan MD Work Phone: [facility] 10-07-2024 13:43-0500 Body mass index (BMI) [Ratio] 16.8 kg/m2 Dr. Bird Lujan MD Work Phone: [facility] 10-07-2024 13:43-0500 Body weight 47.[address] Bird Lujan MD Work Phone: [facility] 10-07-2024 13:43-0500 Diastolic blood pressure 73 mm[Hg] Dr. Bird Lujan MD Work Phone: [facility] 10-07-2024 13:43-0500 Heart rate 76 /min Dr. Bird Lujan MD Work Phone: [facility] 10-07-2024 13:43-0500 Inhaled oxygen flow rate 3 L/min Dr. Bird Lujan MD Work Phone: [facility] 10-07-2024 13:43-0500 SaO2% (BldA) [Mass fraction] 100 % Dr. Bird Lujan MD Work Phone: [facility] 10-07-2024 13:43-0500 Systolic blood pressure 172 mm[Hg] Dr. Bird Lujan MD Work Phone: [facility] 08-24-2024 15:33-0400 Heart rate 83 /min [facility] DO Work Phone: [facility] 08-24-2024 15:33-0400 Respiratory rate 12 /min [employer] DO Work Phone: [facility] 08-24-2024 15:33-0400 SaO2% (BldA) [Mass fraction] 99 % [employer] DO Work Phone: [facility] 08-24-2024 07:34-0400 Body temperature 97.9 [degF] [employer] DO Work Phone: [facility] [employer] 08-24-2024 07:34-0400 Diastolic blood pressure 58 mm[Hg] Lucina Galvan [facility] 08-24-2024 07:34-0400 Systolic blood pressure 141 mm[Hg] Lucina Galvan DO Work Phone: [facility] [employer] 08-24-2024 06:00-0400 Body mass index (BMI) [Ratio] 19.43 kg/m2 Lucina Galvan DO Work Phone: [facility] [employer] 08-24-2024 06:00-0400 Body weight 54.6 kg Lucina Galvan DO Work Phone: [facility] [employer] 08-22-2024 23:29-0400 Body height 167.6 cm Lucina Galvan DO Work Phone: [facility] [employer] 08-21-2024 15:09-0400 SaO2% (BldA) [Mass fraction] 96.1 % Lucina Galvan DO Work Phone: [facility] [employer] 08-21-2024 09:09-0400 SaO2% (BldA) [Mass fraction] 96.6 % Lucina Galvan DO Work Phone: [facility] [employer] 08-20-2024 21:28-0400 SaO2% (BldA) [Mass fraction] 98.1 % Lucina Galvan DO Work Phone: [facility] [employer] 08-20-2024 16:12-0400 SaO2% (BldA) [Mass fraction] 96.9 % Lucina Galvan DO Work Phone: [facility] [employer] 08-20-2024 13:02-0400 SaO2% (BldA) [Mass fraction] 68.2 % Lucina Galvan DO Work Phone: [facility] [employer] 08-20-2024 10:31-0400 SaO2% (BldA) [Mass fraction] 92.1 % Lucina Galvan DO Work Phone: [facility] [employer] 08-13-2024 07:08-0400 SaO2% (BldA) [Mass fraction] 95.8 % Lucina Galvan DO Work Phone: [facility] [employer] 08-10-2024 12:21-0400 Diastolic blood pressure 56 mm[Hg] Colin Peoples MD Work Phone: [facility] [employer] 08-10-2024 12:21-0400 Heart rate 81 /min Colin Peoples MD Work Phone: [facility] [employer] 08-10-2024 12:21-0400 Systolic blood pressure 133 mm[Hg] Colin Peoples MD Work Phone: [facility] [employer] 08-10-2024 12:17-0400 Body temperature 97 [degF] Colin Peoples MD Work Phone: [facility] [employer] 08-10-2024 12:17-0400 Respiratory rate 16 /min Colin Peoples MD Work Phone: [facility] [employer] 08-10-2024 12:17-0400 SaO2% (BldA) [Mass fraction] 100 % Colin Peoples MD Work Phone: [facility] [employer] 08-07-2024 04:00-0400 Body mass index (BMI) [Ratio] 20.43 kg/m2 Colin Peoples MD Work Phone: [facility] [employer] 08-07-2024 04:00-0400 Body weight 57.4 kg Colin Peoples MD Work Phone: [facility] [employer] 08-03-2024 13:55-0400 Body height 167.6 cm Colin Peoples MD Work Phone: [facility] [employer] 07-31-2024 06:18-0400 SaO2% (BldA) [Mass fraction] 98.0 % Colin Peoples MD Work Phone: [facility] [employer] 02-05-2024 07:48-0400 Body height 167.[address] Sin Lujan Work Phone: [facility] 02-05-2024 07:48-0400 Body mass index (BMI) [Ratio] 15.1 kg/m2 Dr. Sin Lujan Work Phone: [facility] 02-05-2024 07:48-0400 Body temperature 94.6 [degF] Dr. Sin Lujan Work Phone: [facility] 02-05-2024 07:48-0400 Body weight 42.[address] Sin Lujan Work Phone: [facility] 02-05-2024 07:48-0400 Diastolic blood pressure 66 mm[Hg] Dr. Sin Lujan Work Phone: [facility] 02-05-2024 07:48-0400 Heart rate 61 /min Dr. Sin Lujan Work Phone: [facility] 02-05-2024 07:48-0400 Inhaled oxygen flow rate 3 L/min Dr. Sin Lujan Work Phone: [facility] 02-05-2024 07:48-0400 Respiratory rate 18 /min Dr. Sin Lujan Work Phone: [facility] 02-05-2024 07:48-0400 SaO2% (BldA) [Mass fraction] 99 % Dr. Sin Lujan Work Phone: [facility] 02-05-2024 07:48-0400 Systolic blood pressure 107 mm[Hg] Dr. Sin Lujan Work Phone: [facility] 12-03-2023 10:07-0500 Body height 167.[address] Sin Lujan Work Phone: [facility] 12-03-2023 10:07-0500 Body mass index (BMI) [Ratio] 16.2 kg/m2 Dr. Sin Lujan Work Phone: [facility] 12-03-2023 10:07-0500 Body temperature 97.8 [degF] Dr. Sin Lujan Work Phone: [facility] 12-03-2023 10:07-0500 Body weight 45.[address] Sin Lujan Work Phone: [facility] 12-03-2023 10:07-0500 Diastolic blood pressure 75 mm[Hg] Dr. Sin Lujan Work Phone: [facility] 12-03-2023 10:07-0500 Heart rate 52 /min Dr. Sin Lujan Work Phone: [facility] 12-03-2023 10:07-0500 Respiratory rate 16 /min Dr. Sin Lujan Work Phone: [facility] 12-03-2023 10:07-0500 SaO2% (BldA) [Mass fraction] 92 % Dr. Sin Lujan Work Phone: [facility] 12-03-2023 10:07-0500 Systolic blood pressure 148 mm[Hg] Dr. Sin Lujan Work Phone: [facility] 11-18-2023 10:57-0500 Body height 167.[address] Sin Lujan Work Phone: [facility] 11-18-2023 10:57-0500 Body mass index (BMI) [Ratio] 16 kg/m2 Dr. Sin Lujan Work Phone: [facility] 11-18-2023 10:57-0500 Body weight 44.[address] Sin Lujan Work Phone: [facility] 11-18-2023 10:57-0500 Diastolic blood pressure 72 mm[Hg] Dr. Sin Lujan Work Phone: [facility] 11-18-2023 10:57-0500 Heart rate 59 /min Dr. Sin Lujan Work Phone: [facility] 11-18-2023 10:57-0500 Inhaled oxygen flow rate 3 L/min Dr. Sin Lujan Work Phone: [facility] 11-18-2023 10:57-0500 Respiratory rate 18 /min Dr. Sin Lujan Work Phone: [facility] 11-18-2023 10:57-0500 SaO2% (BldA) [Mass fraction] 99 % Dr. Sni Lujan Work Phone: [facility] 11-18-2023 10:57-0500 Systolic blood pressure 148 mm[Hg] Dr. Sin Lujan Work Phone: [facility] 10-29-2023 08:59-0500 Body height 167.[address] Sin Lujan Work Phone: [facility] 10-29-2023 08:59-0500 Body mass index (BMI) [Ratio] 15.8 kg/m2 Dr. Sin Lujan Work Phone: [facility] 10-29-2023 08:59-0500 Body temperature 97.4 [degF] Dr. Sin Lujan Work Phone: [facility] 10-29-2023 08:59-0500 Body weight 44.[address] Sin Lujan Work Phone: [facility] 10-29-2023 08:59-0500 Diastolic blood pressure 63 mm[Hg] Dr. Sin Lujan Work Phone: [facility] 10-29-2023 08:59-0500 Heart rate 67 /min Dr. Sin Lujan Work Phone: [facility] 10-29-2023 08:59-0500 Inhaled oxygen flow rate 3 L/min Dr. Sin Lujan Work Phone: [facility] 10-29-2023 08:59-0500 Respiratory rate 22 /min Dr. Sin Lujan Work Phone: [facility] 10-29-2023 08:59-0500 SaO2% (BldA) [Mass fraction] 99 % Dr. Sin Lujan Work Phone: [facility] 10-29-2023 08:59-0500 Systolic blood pressure 121 mm[Hg] Dr. Sin Lujan Work Phone: [facility] 07-14-2023 10:44-0400 Body height 167.64 cm [employer] Jeanna Davis [employer] EDITOR Work Phone: [facility] 07-14-2023 10:44-0400 Body mass index (BMI) [Ratio] 15.3 kg/m2 [employer] Jeanna Davis F[employer] MAIL EDITOR Work Phone: [facility] 07-14-2023 10:44-0400 Body temperature 97.8 [degF] [employer] Jeanna Davis F[employer] MAIL EDITOR Work Phone: [facility] 07-14-2023 10:44-0400 Body weight 43.26 kg [employer] Jeanna Davis F[employer] MAIL EDITOR Work Phone: [facility] 07-14-2023 10:44-0400 Diastolic blood pressure 72 mm[Hg] [employer] Jeanna Davis F[employer] MAIL EDITOR Work Phone: [facility] 07-14-2023 10:44-0400 Heart rate 70 /min [employer] Jeanna Davis F[employer] MAIL EDITOR Work Phone: [facility] 07-14-2023 10:44-0400 Respiratory rate 16 /min [employer] Jeanna Davis F[employer] MAIL EDITOR Work Phone: [facility] 07-14-2023 10:44-0400 SaO2% (BldA) [Mass fraction] 95 % [employer] Jeanna Davis F[employer] MAIL EDITOR Work Phone: [facility] 07-14-2023 10:44-0400 Systolic blood pressure 144 mm[Hg] [employer] Jeanna Davis F[employer] MAIL EDITOR Work Phone: [facility] 06-25-2023 05:47-0400 Body mass index (BMI) [Ratio] 15.7 kg/m2 [employer] Jeanna Davis F[employer] MAIL EDITOR Work Phone: [facility] 06-25-2023 05:47-0400 Body temperature 96.8 [degF] [employer] Jeanna Davis FAN MAIL EDITOR Work Phone: [facility] 06-25-2023 05:47-0400 Body weight 44.45 kg [employer] Jeanna Davis FAN MAIL EDITOR Work Phone: [facility] 06-25-2023 05:47-0400 Diastolic blood pressure 75 mm[Hg] [employer] Jeanna Davis FAN MAIL EDITOR Work Phone: [facility] 06-25-2023 05:47-0400 Heart rate 62 /min [employer] Jeanna Davis FAN MAIL EDITOR Work Phone: [facility] 06-25-2023 05:47-0400 Respiratory rate 16 /min [employer]OR[employer] Jeanna Davis FAN MAIL EDITOR Work Phone: [facility] 06-25-2023 05:47-0400 SaO2% (BldA) [Mass fraction] 96 % [employer] Jeanna Davis FAN MAIL EDITOR Work Phone: [facility] 06-25-2023 05:47-0400 Systolic blood pressure 136 mm[Hg] [employer]OR[employer] Jeanna Davis F[employer] MAIL EDITOR Work Phone: [facility] 06-12-2023 08:36-0400 Body height 167.[address] Sin Lujan Work Phone: [facility] 06-12-2023 08:36-0400 Body weight 45.[address] Sin Lujan Work Phone: [facility] 06-12-2023 08:36-0400 Heart rate 59 /min Dr. Sin Lujan Work Phone: [facility] 06-12-2023 08:36-0400 Inhaled oxygen flow rate 2 L/min Dr. Sin Lujan Work Phone: [facility] 06-12-2023 08:36-0400 SaO2% (BldA) [Mass fraction] 89 % Dr. Sin Lujan Work Phone: [facility] 04-09-2023 14:31-0400 Body height 167.[address] Sin Lujan Work Phone: [facility] 04-09-2023 14:31-0400 Body mass index (BMI) [Ratio] 16 kg/m2 Dr. Sin Lujan Work Phone: [facility] 04-09-2023 14:31-0400 Body weight 44.[address] Sin Lujan Work Phone: [facility] 04-09-2023 14:31-0400 Diastolic blood pressure 65 mm[Hg] Dr. Sin Lujan Work Phone: [facility] 04-09-2023 14:31-0400 Heart rate 59 /min Dr. Sin Lujan Work Phone: [facility] 04-09-2023 14:31-0400 Respiratory rate 18 /min Dr. Sin Lujan Work Phone: [facility] 04-09-2023 14:31-0400 Systolic blood pressure 113 mm[Hg] Dr. Sin Lujan Work Phone: [facility] 02-17-2023 07:47-0400 Body height 167.[address] Sin Lujan Work Phone: [facility] 02-17-2023 07:47-0400 Body mass index (BMI) [Ratio] 16 kg/m2 Dr. Sin Lujan Work Phone: [facility] 02-17-2023 07:47-0400 Body temperature 97 [degF] Dr. Sin Lujan Work Phone: [facility] 02-17-2023 07:47-0400 Body weight 44.[address] Sin Lujan Work Phone: [facility] 02-17-2023 07:47-0400 Diastolic blood pressure 58 mm[Hg] Dr. Sin Lujan Work Phone: [facility] 02-17-2023 07:47-0400 Heart rate 69 /min Dr. Sin Lujan Work Phone: [facility] 02-17-2023 07:47-0400 Respiratory rate 18 /min Dr. Sin Lujan Work Phone: [facility] 02-17-2023 07:47-0400 SaO2% (BldA) [Mass fraction] 95 % Dr. Sin Lujan Work Phone: [facility] 02-17-2023 07:47-0400 Systolic blood pressure 98 mm[Hg] Dr. Sin Lujan Work Phone: 7(580)355-114743 [place] [address] 01-01-2023 13:19-0500 Body mass index (BMI) [Ratio] 16.2 kg/m2 Dr. Sin Lujan Work Phone: 6(016)027-182143 [place] [address] 01-01-2023 13:19-0500 Body temperature 96.9 [degF] Dr. Sin Lujan Work Phone: 3(956)770-280866 [address] 01-01-2023 13:19-0500 Body weight 45.[address] Sin Lujan Work Phone: 4(643)867-495443 [place] [address] 01-01-2023 13:19-0500 Diastolic blood pressure 77 mm[Hg] Dr. Sin Lujan Work Phone: [facility] 01-01-2023 13:19-0500 Heart rate 67 /min Dr. Sin Lujan Work Phone: 2(966)977-297743 [place] [address] 01-01-2023 13:19-0500 Respiratory rate 18 /min Dr. Sin Lujan Work Phone: [facility] 01-01-2023 13:19-0500 SaO2% (BldA) [Mass fraction] 92 % Dr. Sin Lujan Work Phone: 0(748)040-822043 [place] [address] 01-01-2023 13:19-0500 Systolic blood pressure 143 mm[Hg] Dr. Sin Lujan Work Phone: [facility] 09-05-2022 07:40-0400 Body height 167.[address] Sin Lujan Work Phone: [facility] Work Phone: 09-05-2022 07:40-0400 Body mass index (BMI) [Ratio] 17.2 kg/m2 Dr. Sin Lujan Work Phone: [facility] Work Phone: 09-05-2022 07:40-0400 Body temperature 98 [degF] Dr. Sin Lujan Work Phone: [facility] Work Phone: 09-05-2022 07:40-0400 Body weight 48.[address] Sin Lujan Work Phone: [facility] Work Phone: 09-05-2022 07:40-0400 Diastolic blood pressure 73 mm[Hg] Dr. Sin Lujan Work Phone: [facility] Work Phone: 09-05-2022 07:40-0400 Heart rate 66 /min Dr. Sin Lujan Work Phone: [facility] Work Phone: 09-05-2022 07:40-0400 Respiratory rate 16 /min Dr. Sin Lujan Work Phone: [facility] Work Phone: 09-05-2022 07:40-0400 SaO2% (BldA) [Mass fraction] 99 % Dr. Sin Lujan Work Phone: [facility] Work Phone: 09-05-2022 07:40-0400 Systolic blood pressure 160 mm[Hg] Dr. Sin Lujan Work Phone: [facility] Work Phone: 07-31-2022 12:46-0400 Body height 167.[address] Sni Lujan Work Phone: [facility] Work Phone: 07-31-2022 12:46-0400 Body weight 45.[address] Sin Lujan Work Phone: [facility] Work Phone: 07-31-2022 12:46-0400 Heart rate 79 /min Dr. Sin Lujan Work Phone: [facility] Work Phone: 07-31-2022 12:46-0400 SaO2% (BldA) [Mass fraction] 97 % Dr. Sin Lujan Work Phone: [facility] Work Phone: 07-04-2022 10:35-0400 Body mass index (BMI) [Ratio] 16.5 kg/m2 Dr. Sin Lujan Work Phone: [facility] Work Phone: 07-04-2022 10:35-0400 Body temperature 95.2 [degF] Dr. Sin Lujan Work Phone: [facility] Work Phone: 07-04-2022 10:35-0400 Body weight 46.[address] Sin Lujan Work Phone: [facility] Work Phone: 07-04-2022 10:35-0400 Diastolic blood pressure 76 mm[Hg] Dr. Sin Lujan Work Phone: [facility] Work Phone: 07-04-2022 10:35-0400 Heart rate 68 /min Dr. Sin Lujan Work Phone: [facility] Work Phone: 07-04-2022 10:35-0400 Respiratory rate 18 /min Dr. Sin Lujan Work Phone: [facility] Work Phone: 07-04-2022 10:35-0400 SaO2% (BldA) [Mass fraction] 96 % Dr. Sin Lujan Work Phone: [facility] Work Phone: 07-04-2022 10:35-0400 Systolic blood pressure 130 mm[Hg] Dr. Sin Lujan Work Phone: [facility] Work Phone: 05-28-2022 12:54-0400 Body height 167.64 cm No PCP None UV-Gwkwbiihqe-FH [facility] [employer] Work Phone: 05-28-2022 12:54-0400 Body mass index (BMI) [Ratio] 17.24 kg/m2 No PCP None RZ-Etytzxjlkp-ETH [employer] [facility] [address] Work Phone: 05-28-2022 12:54-0400 Body surface area Derived from formula 1.53 m2 No PCP None PP-Ptswvephbe-DLV [employer] [facility] [address] Work Phone: 05-28-2022 12:54-0400 Body temperature 97.2 [degF] No PCP None YD-Idsgeptxeu-B MC [employer] [facility] [address] Work Phone: 05-28-2022 12:54-0400 Body weight 48.44 kg No PCP None EB-Atbpgbzlal-CR C [employer] [facility] [address] Work Phone: 05-28-2022 12:54-0400 Diastolic blood pressure 55 mm[Hg] No PCP None PQ-Edfyqxfjye-JON [employer] [facility] [address] Work Phone: 05-28-2022 12:54-0400 Heart rate 68 /min No PCP None VA-Pmwdrxufbj-IE C [employer] [facility] [address] Work Phone: 05-28-2022 12:54-0400 SaO2% (BldA) [Mass fraction] 98 % No PCP None GE-Lejokotnpk-TPZ [employer] [address] Work Phone: 05-28-2022 12:54-0400 Systolic blood pressure 111 mm[Hg] No PCP None EP-Kestagjyvv-DLE [place] [address] Work Phone: 05-28-2022 12:54-0400 0 1 No PCP None LQ-Dgsgrhvmua-GT C [place] [address] Work Phone: Comment on above: [employer] 05-13-2022 08:14-0400 Body mass index (BMI) [Ratio] 16.9 kg/m2 Dr. Sin Lujan Work Phone: [facility] Work Phone: 05-13-2022 08:14-0400 Body temperature 97.4 [degF] Dr. Sin Lujan Work Phone: [facility] Work Phone: 05-13-2022 08:14-0400 Body weight 47.[address] Sin Lujan Work Phone: [facility] Work Phone: 05-13-2022 08:14-0400 Diastolic blood pressure 62 mm[Hg] Dr. Sin Lujan Work Phone: [facility] Work Phone: 05-13-2022 08:14-0400 Heart rate 67 /min Dr. Sin Lujan Work Phone: [facility] Work Phone: 05-13-2022 08:14-0400 Respiratory rate 16 /min Dr. Sin Lujan Work Phone: [facility] Work Phone: 05-13-2022 08:14-0400 SaO2% (BldA) [Mass fraction] 99 % Dr. Sin Lujan Work Phone: [facility] Work Phone: 05-13-2022 08:14-0400 Systolic blood pressure 126 mm[Hg] Dr. Sin Lujan Work Phone: [facility] Work Phone: 02-21-2022 13:07-0400 Body height 167.[address] Sin Lujan Work Phone: [facility] Work Phone: 02-21-2022 13:07-0400 Body mass index (BMI) [Ratio] 16.1 kg/m2 Dr. Sin Lujan Work Phone: [facility] Work Phone: 02-21-2022 13:07-0400 Body temperature 99.1 [degF] Dr. Sin Lujan Work Phone: [facility] Work Phone: 02-21-2022 13:07-0400 Body weight 45.[address] Sin Lujan Work Phone: [facility] Work Phone: 02-21-2022 13:07-0400 Diastolic blood pressure 75 mm[Hg] Dr. Sin Lujan Work Phone: [facility] Work Phone: 02-21-2022 13:07-0400 Heart rate 61 /min Dr. Sin Lujan Work Phone: [facility] Work Phone: 02-21-2022 13:07-0400 Respiratory rate 17 /min Dr. Sin Lujan Work Phone: [facility] Work Phone: 02-21-2022 13:07-0400 SaO2% (BldA) [Mass fraction] 95 % Dr. Sin Lujan Work Phone: [facility] Work Phone: 02-21-2022 13:07-0400 Systolic blood pressure 130 mm[Hg] Dr. Sin Lujan Work Phone: [facility] Work Phone: 02-21-2022 13:07-0400 Body height 167.[address] Sin Lujan Work Phone: [facility] Work Phone: 02-21-2022 13:07-0400 Body mass index (BMI) [Ratio] 16.1 kg/m2 Dr. Sin Lujan Work Phone: [facility] Work Phone: 02-21-2022 13:07-0400 Body temperature 99.1 [degF] Dr. Sin Lujan Work Phone: [facility] Work Phone: 02-21-2022 13:07-0400 Body weight 45.[address] Sin Lujan Work Phone: [facility] Work Phone: 02-21-2022 13:07-0400 Diastolic blood pressure 75 mm[Hg] Dr. Sin Lujan Work Phone: [facility] Work Phone: 02-21-2022 13:07-0400 Heart rate 61 /min Dr. Sin Lujan Work Phone: [facility] Work Phone: 02-21-2022 13:07-0400 Respiratory rate 17 /min Dr. Sin Lujan Work Phone: [facility] Work Phone: 02-21-2022 13:07-0400 SaO2% (BldA) [Mass fraction] 95 % Dr. Sin Lujna Work Phone: [facility] Work Phone: 02-21-2022 13:07-0400 Systolic blood pressure 130 mm[Hg] Dr. Sin Lujan Work Phone: [facility] Work Phone: 01-10-2022 08:05-0500 Body mass index (BMI) [Ratio] 17.3 kg/m2 Dr. Sin Lujan Work Phone: [facility] Work Phone: 01-10-2022 08:05-0500 Body temperature 97.3 [degF] Dr. Sin Lujan Work Phone: [facility] Work Phone: 01-10-2022 08:05-0500 Body weight 48.[address] Sin Lujan Work Phone: [facility] Work Phone: 01-10-2022 08:05-0500 Diastolic blood pressure 60 mm[Hg] Dr. Sin Lujan Work Phone: [facility] Work Phone: 01-10-2022 08:05-0500 Heart rate 77 /min Dr. Sni Lujan Work Phone: [facility] Work Phone: 01-10-2022 08:05-0500 Respiratory rate 18 /min Dr. Sin Lujan Work Phone: [facility] Work Phone: 01-10-2022 08:05-0500 SaO2% (BldA) [Mass fraction] 95 % Dr. Sin Lujan Work Phone: [facility] Work Phone: 01-10-2022 08:05-0500 Systolic blood pressure 140 mm[Hg] Dr. Sin Lujan Work Phone: [facility] Work Phone: 01-10-2022 07:05-0500 Body height 167.[address] Sin Lujan Work Phone: [facility] Work Phone: 01-10-2022 07:05-0500 Body mass index (BMI) [Ratio] 17.3 kg/m2 Dr. Sin Lujan Work Phone: [facility] Work Phone: 01-10-2022 07:05-0500 Body temperature 97.3 [degF] Dr. Sin Lujan Work Phone: [facility] Work Phone: 01-10-2022 07:05-0500 Body weight 48.[address] Sin Lujan Work Phone: [facility] Work Phone: 01-10-2022 07:05-0500 Diastolic blood pressure 60 mm[Hg] Dr. Sin Lujan Work Phone: [facility] Work Phone: 01-10-2022 07:05-0500 Heart rate 77 /min Dr. Sin Lujan Work Phone: [facility] Work Phone: 01-10-2022 07:05-0500 Respiratory rate 18 /min Dr. Sin Lujan Work Phone: [facility] Work Phone: 01-10-2022 07:05-0500 SaO2% (BldA) [Mass fraction] 95 % Dr. Sin Lujan Work Phone: [facility] Work Phone: 01-10-2022 07:05-0500 Systolic blood pressure 140 mm[Hg] Dr. Sin Lujan Work Phone: [facility] Work Phone: 03-05-2017 16:53-0400 BMI (Body Mass Index) 16.91 kg/m2 Ana Rosa Bustillo LPN [facility] Work Phone: 03-05-2017 16:53-0400 BP Diastolic 68 mm[Hg] Ana Rosa Bustillo LPN [facility] Work Phone: 03-05-2017 16:53-0400 BP Systolic 120 mm[Hg] Ana Rosa Bustillo [employer] [facility] Work Phone: 03-05-2017 16:53-0400 Height 167.64 [...] Provider Facility Start: 05-31-2025 ambulatory Irais Rubi ty:[facility] Start: 05-20-2025 End: 05-20-2025 Emergency department patient visit Dr. Bird Lujan MD Work Phone: -Emergency Department Work Phone: Start: 05-18-2025 End: 05-18-2025 Patient encounter procedure FAN MAIL EDITOR Irais Justice -[facility] Work Phone: Start: 05-18-2025 End: 05-18-[address] Bird Lujan MD Work Phone: -[facility] Start: 05-08-2025 End: 05-08-2025 Emergency department patient visit Dr. Bird Lujan MD Work Phone: -Emergency Department Work Phone: Start: 04-11-2025 End: 04-11-[address] Bird Lujan MD Work Phone: [facility] Work Phone: Start: 04-11-2025 End: 04-11-[address] Christy Huerta DO -Laboratory Specimen Work Phone: Start: 04-11-2025 End: 04-11-2025 Dr. Christy Huerta DO -Laboratory Specime n Work Phone: Start: 04-11-2025 End: 04-11-2025 ambulatory Bird Lujan Facility:[facility] Start: 04-09-2025 End: 04-09-2025 Dr. Bird Lujan MD Work Phone: -Emergency Department Work Phone: Start: 04-09-2025 End: 04-09-2025 Emergency department patient visit Dr. Bird uLjan MD Work Phone: [facility] Work Phone: Start: 04-09-2025 End: 04-09-[address] Bird Lujan MD Work Phone: [facility] Work Phone: Start: 04-09-2025 End: 04-09-[address] Christy Huerta DO -Laboratory Work Phone: Start: 04-09-2025 End: 04-09-2025 Dr. Christy Huerta DO -Laboratory Work Phone: Start: 04-09-2025 End: 04-09-2025 ambulatory Dale Tai Facility:[facility] Start: 03-22-2025 End: 03-22-2025 Patient encounter procedure Kayleigh Payne PA -[facility] Work Phone: Start: 03-22-2025 End: 03-22-2025 Kayleigh BHARDWAJ [facility] Vascula r Surgery Work Phone: Start: 03-22-2025 End: 03-22-[address] Christy Huerta DO Work Phone: [facility] Work Phone: Start: 03-10-2025 ambulatory Bird Lujan Fachardik lity:[facility] Start: 01-27-2025 End: 01-27-2025 Patient encounter procedure Brenda Medrano FAN MAIL EDITOR-C -[facility] Work Phone: Start: 01-27-2025 End: 01-27-2025 Brenda Medrano FAN MAIL EDITOR-C -[facility] Work Phone: Start: 01-27-2025 End: 01-27-2025 ambulatory Bird Lujan Facility:[facility] Start: 01-13-2025 Encounter for other preprocedural examination Favian Sinclair [facility] Start: 01-11-2025 End: 01-11-2025 Patient encounter procedure Kayleigh BHARDWAJ [facility] Vascular Surgery Work Phone: Start: 01-11-2025 End: 01-11-2025 Kayleigh BHARDWAJ [facility] Vascula r Surgery Work Phone: Start: 01-11-2025 End: 01-11-2025 ambulatory Bird Lujan Facility:[facility] Start: 01-11-2025 End: 01-11-[address] Bird Lujan MD Work Phone: [facility] Work Phone: Start: 01-11-2025 End: 01-11-2025 Patient encounter procedure Jeanna Davis FAN MAIL EDITOR-C -Cat Scan [facility] Work Phone: Start: 01-11-2025 End: 01-11-2025 Jeanna Davis FAN MAIL EDITOR-C -Cat Scan, [facility] Work Phone: Start: 01-11-2025 End: 01-11-2025 ambulatory [facility] Facility:[facility] Start: 01-06-2025 ambulatory [facility] Facility:[facility] Start: 01-06-2025 Dr. He Cat MD -[facility] Inpatient Physicians Work Phone: Start: 01-05-2025 Dr. He Cat MD -[facility] Work Phone: Start: 01-05-2025 Dr. Terrance Alva DO -[facility] -PMW Start: 01-04-2025 Dr. He Cat MD -[facility]patient [facility]icians Work Phone: Start: 01-03-2025 End: 01-06-2025 Evaluation and management of inpatient [facility] Facility:[facility] Start: 01-03-2025 ambulatory [facility] Faci lity:[facility] Start: 01-03-2025 End: 01-06-2025 Dr. He Cat MD -Progressive [facility] U nit Work Phone: Start: 12-30-2024 End: 12-30-2024 Telephone encounter Kidney Txp Coordinators Work Phone: [facility] Comment on above: Referral - Kidney Tx p Start: 12-30-2024 [facility] Start: 12-29-2024 End: 12-29-2024 Telephone encounter Kidney Txp Coordinators Work Phone: [facility] Comment on above: Referral - Kidney Tx p Start: 12-28-2024 ambulatory [facility] Facility:[facility] Start: 12-28-2024 Dr. Favian Sinclair MD -[facility] -BVS Start: 12-28-2024 End: 12-28-2024 Dr. Favian Sinclair MD -Surgical Day Care Start: 12-28-2024 End: 12-28-2024 ambulatory [facility] Facility:[facility] Start: 12-24-2024 End: 12-24-2024 Telephone encounter Kidney Txp Coordinators Work Phone: [facility] Comment on above: Referral - Kidney Tx p Start: 12-17-2024 ambulatory Tee Aguirre Fa cility:[facility] Start: 12-17-2024 End: 12-17-2024 Dr. Tee Aguirre MD -[facility] Start: 12-16-2024 End: 12-16-2024 Myonr Anthony FAN MAIL EDITOR-C -[facility] Work Phone: Start: 12-16-2024 End: 12-17-2024 ambulatory Kayleigh Payne Facility:[facility] Start: 12-02-2024 End: 12-02-2024 Dr. [facility] Work Phone: Start: 12-02-2024 End: 12-02-2024 ambulatory Christy Lee Facility:[facility] Start: 11-20-2024 End: 11-20-2024 Dr. Justin Parisi DO -Emergency Department Work Phone: Start: 11-20-2024 End: 11-20-2024 Emergency department patient visit Justin Parisi Facility:[facility] Start: 11-04-2024 End: 11-04-2024 Emergency department patient visit Ed Physician Provider Facility:[facility] Start: 11-04-2024 End: 11-04-2024 ED PHYSICIAN PROVIDER -Emergency Departm ent Work Phone: Start: 11-04-2024 End: 11-04-2024 ambulatory Bird Lujan Facility:[facility] Start: 11-02-2024 ambulatory Favian Sinclair Facility:[facility] Start: 11-02-2024 End: 11-02-2024 Dr. Favian Sinclair MD -[facility]-S Start: 11-02-2024 End: 11-02-2024 ambulatory Christy Huerta Facility:[facility] Start: 10-16-2024 End: 10-16-2024 Jeanna Davis NP-C -Cat Scan, [facility] Work Phone: Start: 10-16-2024 End: 10-16-2024 ambulatory Jeanna Davis NP Facility:[facility] Start: 10-07-2024 End: 10-07-2024 Brenda Medrano FAN MAIL EDITOR-C -[facility] Work Phone: Start: 10-07-2024 End: 10-07-2024 ambulatory Bird Lujan Facility:[facility] Start: 08-31-2024 End: 08-31-2024 ambulatory Tamifany Alfredo BARREL RIBS SOLDERER - CLEARANCE CUTTER Work Phone: [facility] Start: 08-31-2024 End: 08-31-2024 Patient encounter procedure Tami Alvin Alfredo BARREL RIBS SOLDERER - CLEARANCE CUTTER Work Phone: [facility] Comment on above: Chronic respiratory failure with hypoxia and hypercapnia (HCC) [J96.11, J96.12] (Primary Dx); Centrilobular emphysema (HCC) [J43.2]; Other dysphagia [R13.19]; Hx of bacterial pneumonia [Z87.01] Start: 08-27-2024 End: 08-27-2024 ambulatory Tami MariUriel Alfredo BARREL RIBS SOLDERER - CLEARANCE CUTTER Work Phone: [facility] Start: 08-27-2024 End: 08-27-2024 Patient encounter procedure Tami GuerraUriel Alfredo BARREL RIBS SOLDERER - CLEARANCE CUTTER Work Phone: [facility] Comment on above: Chronic respiratory failure with hypoxia and hypercapnia (HCC) [J96.11, J96.12] (Primary Dx); Centrilobular emphysema (HCC) [J43.2]; History of recent pneumonia [Z87.01]; Other dysphagia [R13.19] Start: 08-25-2024 End: 08-25-2024 ambulatory Tami Alvin Alfredo BARREL RIBS SOLDERER - CLEARANCE CUTTER Work Phone: [facility] Start: 08-25-2024 End: 08-25-2024 Patient encounter procedure Tami Alfredo BARREL RIBS SOLDERER - CLEARANCE CUTTER Work Phone: [facility] Comment on above: Chronic respiratory failure with hypoxia and hypercapnia (HCC) [J96.11, J96.12] (Primary Dx); Centrilobular emphysema (HCC) [J43.2]; Bilateral pleural effusion [J90]; Hx of bacterial pneumonia [Z87.01]; Cigarette nicotine dependence without complication [F17.210] Start: 08-13-2024 End: 08-13-2024 ambulatory ELIZABETH TYLER [facility] Start: 08-12-2024 End: 08-24-2024 Evaluation and management of inpatient Lucina Marie Cole ANDERSON Work Phone: [facility] MARANDA 6W Start: 08-11-2024 End: 08-11-2024 ambulatory ELIESER SOLIS [facility] Start: 08-11-2024 End: 11-10-2024 Subsequent hospital visit by physician Elieser Solis MD Work Phone: [facility] IMAGING Comment on above: SDH (subdural hemato ma) (HCC) SDH (subdural hemato ma) (HCC) (Primary Dx) Start: 08-10-2024 End: 08-10-2024 ambulatory MADELINE MONTALVO [facility] Start: 07-28-2024 End: 07-28-2024 ambulatory TORITO KEYSHAWN [facility] Start: 07-27-2024 End: 07-29-2024 ambulatory [facility] Start: 07-26-2024 End: 08-10-2024 Evaluation and management of inpatient Colin Peoples MD Work Phone: [facility] Trauma Neuro Progressive Care Unit PCU 3W Start: 07-24-2024 End: 07-24-2024 ambulatory Lani Dora Samaniego Facility:[facility] Start: 07-23-2024 ambulatory Lani Samaniego Facility :[facility] Start: 07-23-2024 End: 07-26-2024 Evaluation and management of inpatient Lani Dora Samaniego Facility:[facility] Start: 07-13-2024 ambulatory Christy Huerta Facility: [facility] Start: 07-01-2024 End: 07-01-2024 ambulatory Bird Lujan Facility:[facility] Start: 03-02-2024 End: 03-02-[address] Bird uLjan Work Phone: [facility] Work Phone: Start: 03-02-2024 End: 03-02-[address] Bird Lujan Work Phone: [facility]-Cardiovascula r Services Work Phone: Start: 02-05-2024 End: 02-05-[address] Sin Lujan Work Phone: [facility]-Pulmonary Medicine [facility] Work Phone: Start: 02-02-2024 End: 02-02-[address] Sin Lujan Work Phone: [facility] Work Phone: Start: 02-02-2024 End: 02-02-[address] Sin Lujan Work Phone: [facility], [facility] Work Phone: Start: 01-15-2024 End: 01-15-[address] Sin Lujan Work Phone: [facility] Work Phone: Start: 01-15-2024 End: 01-15-[address] Sin Lujan Work Phone: [facility]-Laboratory, Phy Office 3rd Iar Start: 12-03-2023 End: 12-03-[address] Sin Lujan Work Phone: [facility] Work Phone: Start: 11-18-2023 End: 11-18-[address] Sin Lujan Work Phone: [facility] Work Phone: Start: 11-18-2023 End: 11-18-[address] Sin Lujan Work Phone: [facility] Work Phone: Start: 10-29-2023 End: 10-29-[address] Sin Lujan Work Phone: [facility] Work Phone: Start: 10-29-2023 End: 10-29-[address] Sin Lujan Work Phone: [facility]-Laboratory, Specimen Work Phone: Start: 10-29-2023 End: 10-29-[address] Sin Lujan Work Phone: [facility]-Pulmonary Medicine [facility] Work Phone: Start: 10-20-2023 End: 10-20-[address] Sin Lujan Work Phone: [facility] Work Phone: Start: 10-20-2023 End: 10-20-[address] Sin Lujan Work Phone: [facility], [facility] Work Phone: Start: 10-13-2023 End: 10-13-[address] Sin Lujan Work Phone: [facility] Work Phone: Start: 10-13-2023 End: 10-13-[address] [facility] Start: 10-09-2023 End: 10-09-[address] Sin Lujan Work Phone: [facility] Work Phone: Start: 10-09-2023 End: 10-09-2023 Patient encounter procedure FAN MAIL EDITOR-C Jeanna Davis NP Work Phone: [facility], Phy Office 3rd Flr Start: 10-06-2023 End: 10-06-2023 ambulatory FAN MAIL EDITOR-C Jeanna Davis FAN MAIL EDITOR Work Phone: [facility] Work Phone: Start: 10-06-2023 End: 10-06-2023 Patient encounter procedure FAN MAIL EDITOR-Marquis Davis FAN MAIL EDITOR Work Phone: [facility]-Laboratory, Phy Office 3rd Flr Start: 08-06-2023 End: 08-06-2023 Patient encounter procedure FAN MAIL EDITOR-Marquis Davis FAN MAIL EDITOR Work Phone: [facility]-Cat [facility], [facility] Work Phone: Start: 07-14-2023 End: 07-14-2023 Patient encounter procedure FAN MAIL EDITOR-Marquis Davis FAN MAIL EDITOR Work Phone: [facility] Work Phone: Start: 06-25-2023 End: 06-25-2023 Patient encounter procedure FAN MAIL EDITOR-Marquis Davis FAN MAIL EDITOR Work Phone: [facility]-Pulmonary Medicine [facility] Work Phone: Start: 06-19-2023 End: 06-19-[address] Sin Lujan Work Phone: [facility] Work Phone: Start: 06-19-2023 End: 06-19-[address] Sin Lujan Work Phone: [facility]-Laboratory, y Office 3rd Flr Start: 06-12-2023 Non-patient / Non-visit Dr. Aashish Lujan Work Phone: [facility] Start: 06-12-2023 End: 06-12-[address] Sin Lujan Work Phone: [facility]-Pulmonary Services/Neurology Work Phone: Start: 06-02-2023 End: 06-02-[address] Sin Lujan Work Phone: [facility] Work Phone: Start: 06-02-2023 End: 06-02-[address] Sin Lujan Work Phone: [facility] Work Phone: Start: 05-20-2023 Non-patient / Non-visit Dr. Aashish Lujan Work Phone: [facility] Start: 05-19-2023 End: 05-19-[address] Sin Lujan Work Phone: [facility] Work Phone: Start: 05-19-2023 End: 05-19-[address] Sin Lujan Work Phone: [facility]-Pulmonary Services/Neurology Work Phone: Start: 04-09-2023 End: 04-09-[address] Sin Lujan Work Phone: [facility] Work Phone: Start: 03-17-2023 End: 03-17-[address] Sin Lujan Work Phone: [facility]-Laboratory, Phy Office 3rd Iar Start: 03-06-2023 Non-patient / Non-visit Dr. Aashish Lujan Work Phone: [facility] Work Phone: Start: 02-28-2023 Non-patient / Non-visit Dr. Aashish Lujan Work Phone: [facility] Start: 02-27-2023 Non-patient / Non-visit Dr. Aashish Lujan Work Phone: [facility] Start: 02-27-2023 End: 02-27-[address] Sin Lujan Work Phone: [facility] Work Phone: Start: 02-27-2023 End: 02-27-[address] Sin Lujan Work Phone: [facility]-Cardiovascula r Services Start: 02-26-2023 End: 02-26-[address] Sin Lujan Work Phone: [facility] Work Phone: Start: 02-26-2023 End: 02-26-[address] Sin Lujan Work Phone: [facility]-Laboratory Start: 02-17-2023 End: 02-17-[address] [facility] Start: 01-01-2023 End: 01-01-[address] Sin Lujan Work Phone: [facility] Endocrinology Start: 10-11-2022 End: 10-11-[address] Sin Lujan Work Phone: [facility] Work Phone: Start: 10-11-2022 End: 10-11-[address] Sin Lujan Work Phone: [facility] Start: 09-05-2022 End: 09-05-[address] Sin Lu[facility] Start: 08-05-2022 Non-patient / Non-visit Dr. Aashish Lujan Work Phone: [facility] Start: 07-31-2022 End: 07-31-[address] Sin Lujan Work Phone: [facility]-Pulmonary Services/Neurology Start: 07-29-2022 Non-patient / Non-visit Dr. Aashish Lujan Work Phone: [facility] Start: 07-29-2022 End: 07-29-[address] Sin Lujan Work Phone: [facility] Work Phone: Start: 07-29-2022 End: 07-29-[address] Sin Lujan Work Phone: [facility]-Pulmonary Services/Neurology Start: 07-04-2022 End: 07-04-[address] Sin Lujan Work Phone: [facility] Endocrinology Start: 06-09-2022 Chart Update No PCP None [facility] Work Phone: Start: 05-29-2022 Chart Update No PCP None [facility] Work Phone: Start: 05-29-2022 End: 05-29-[address] Sin Lujan Work Phone: [facility] Start: 05-28-2022 Patient encounter procedure No PCP None XI-[facility]orcsdfwo-[facility] [place] [address] Work Phone: Start: 05-13-2022 End: 05-13-[address] Sin Lujan [facility] Start: 05-02-2022 End: 05-02-[address] Sin Lujan Work Phone: [facility]-Laboratory Start: 02-21-2022 End: 02-21-[address] Sin Lu[facility] Start: 02-18-2022 End: 02-18-[address] [facility] Start: 02-08-2022 End: 02-08-[address] Sin Lujan Work Phone: [facility]-Laboratory Start: 01-10-2022 End: 01-10-[address] Sin Lujan Work Phone: [facility] Endocrinology Start: 12-24-2021 End: 12-24-[address] Sin Lujan Work Phone: [facility]-Laboratory Start: 12-19-2021 End: 12-19-[address] Sin Lujan [facility] Patient encounter status No PCP None EJ-Ilfcgozigs-[facility] [place] [address] Work Phone: Procedures Date Procedure Procedure [...] on above: Performed By: #### L [id number] ####Doughnut Dough Mixer: MARY SOTELO ([id number])[facility] ([address] Start: 08-12-2024 Blood typing serologic abo [...] Glucose quantitative blood xcpt reagent strip Fly Harlowton DO Work Phone: Start: 08-10-2024 Glucose quantitative blood xcpt reagent strip Fly Harlowton DO Work Phone: Start: 08-10-2024 End: 08-10-2024 Glucose quantitative blood xcpt reagent strip Fly Harlowton DO Work Phone: Start: 08-10-2024 End: 08-10-2024 Glucose quantitative blood xcpt reagent strip Fly Holli DO Work Phone: Start: 08-10-2024 Basic metabolic pane l calcium total May Shericezan Wang DO Work Phone: Start: 08-10-2024 Complement antigen e ach component Saroj Gaffney MD Work Phone: Start: 08-09-2024 Glucose quantitative blood xcpt reagent strip Fly Harlowton DO Work Phone: Start: 08-09-2024 End: 08-09-2024 [...] on above: Performed By: #### L [id number] ####Doughnut Dough Mixer: MARY SOTELO ([id number])[facility] ([address] Start: 08-06-2024 Blood typing serologic abo [...] Glucose quantitative blood xcpt reagent strip Fly Harlowton DO Work Phone: Start: 08-03-2024 Glucose quantitative [...] on above: Performed By: #### L [id number] ####Doughnut Dough Mixer: MARY SOTELO ([id number])[facility] ([address] Start: 07-31-2024 ABO and Rh group [...] Phone: Start: 07-29-2024 Renal function panel Traylor quinchaay Diane DO Work Phone: Start: 07-29-2024 Blood [...] Start: 07-27-2024 End: 07-27-2024 Comprehensive [facility] Work Phone: Start: 07-27-2024 Manual Differential panel - Blood Kena Heath DO Work Phone: Start: 07-27-2024 End: 07-27-2024 Smr prim src gram/giemsa stain bct fungi/cell [facility] Work Phone: Start: [...] comb ination ph pco2 po2 co2 hco3 [facility] Work Phone: Start: 07-26-2024 Assay of osmolality blood [facility] Merrill DO Work Phone: Start: 07-26-2024 Artl [...] above: Performed By: #### B , BTS, [id number] ####[facility] [id number] [facility]. [place], [place], [id number] Start: 02-02-2024 CT of chest without contrast Dr. Sin Lujan Work Phone: Start: 10-29-2023 Investigation of transfusion reaction Dr. Sin Lujan Work Phone: Start: 10-29-2023 Respiratory microbia l culture Dr. Sin Lujan Work Phone: Start: 10-20-[address] Aashish Lujan Work Phone: Start: 10-13-[address] Suraj Lujan Work Phone: Start: 08-06-2023 CT of chest without contrast FAN MAIL EDITORPaddy Davis FAN MAIL EDITOR Work Phone: Start: 06-02-2023 CT of chest [...] w/ 2 .5 x 28 mm [employer] 01/15/2018; PCI-MIESHA-Mid LCx w/ 3.0 x 16mm [employer] 02/04/2018 Start: 04-02-2012 Colonoscopy Kidney Bander Hand rdinators Work Phone: Start: 12-26-2009 Lipid 1996 panel - S dottie or Plasma Kidney Coordinators Work Phone: Appendectomy No PCP None Hysterectomy No PCP None Plan of Treatment Date Care Activity Detail Author Start: 2034 RSV Vaccine (1 - 1-dose 75+ series) RSV Vaccine (1 - 1-dose 75+ series) [facility] Start: 08-12-2029 Cyanocobalamin vitamin b-12 Vitamin B-12 [facility] [employer] Start: 08-12-2029 [facility] Start: 09-04-2027 Diabetes Screening Diabetes Screening [facility] Start: 07-08-2027 DTaP/Tdap/Td Vaccines (3 - Td or Tdap) DTaP/Tdap/Td Vaccines (3 - Td or Tdap) [facility] Start: 07-08-2027 Urine microalbumin profile DTaP,Tdap,Td Vaccine (3 - Td or Tdap) [facility] Start: 07-08-2027 [facility] Start: 01-31-2026 Pneumococcal Vaccine: 50+ Years (3 of 3 - PCV20 or PCV21) Pneumococcal Vaccine: 50+ Years (3 of 3 - PCV20 or PCV21) [facility] Start: 09-20-2025 Pneumococcal Vaccine: Pediatrics (0 to 5 Years) and At-Risk Patients (6 to 64 Years) (3 of 3 - PPSV23 or PCV20) Pneumococcal Vaccine: Pediatrics (0 to 5 Years) and At-Risk Patients (6 to 64 Years) (3 of 3 - PPSV23 or PCV20) [facility] Start: 09-20-2025 [facility] Start: 09-06-2025 Diabetes: Estimated Glomerular Filtration Rate for [facility] Diabetes: Estimated Glomerular Filtration Rate for [facility] Start: 08-30-2025 Diabetes: Estimated Glomerular Filtration Rate for [facility] Diabetes: Estimated Glomerular Filtration Rate for [facility] Start: 08-25-2025 Diabetes: Estimated Glomerular Filtration Rate for [facility] Diabetes: Estimated Glomerular Filtration Rate for [facility] Start: 08-24-2025 [facility] Start: 08-11-2025 Diabetes: Estimated Glomerular Filtration Rate for Kidney Health Diabetes: Estimated Glomerular Filtration Rate for Kidney Health [facility] Start: 08-10-2025 [facility] Start: 07-26-2025 Hemoglobin A1c measurement [facility] Start: 07-26-2025 Thyroid stimulating hormone measurement [facility] Start: 05-31-2025 [facility] Start: 05-20-2025 [facility] Start: 05-08-2025 [facility] Start: 04-09-2025 [facility] Start: 01-06-2025 Patient discharge [facility] Start: 01-06-2025 Referral to occupational therapist [facility] Start: 01-06-2025 Referral to service [facility] Start: 01-05-2025 [facility] Start: 01-05-2025 Care of hemodialysis equipment [facility] Start: 01-05-2025 Hemodialysis care [facility] Start: 01-05-2025 [facility] Start: 01-05-2025 [facility] Start: 01-04-2025 End: 01-04-2025 [facility] Start: 01-04-2025 Care regimes management [facility] Start: 01-04-2025 Notification of physician [facility] Start: 01-04-2025 Continuous pulse oximetry [facility] Start: 01-04-2025 Care of hemodialysis equipment [facility] Start: 01-04-2025 Hemodialysis care [facility] Start: 01-04-2025 [facility] Start: 01-04-2025 Application of intermittent pneumatic compression device [facility] Start: 01-04-2025 End: 01-04-2025 [facility] Start: 01-04-2025 Notification of physician [facility] Start: 01-04-2025 Consultation for treatment [facility] Start: 01-04-2025 Following clinical pathway protocol [facility] Start: 01-04-2025 Ambulation without limitation [facility] Start: 01-04-2025 Assessment of risk of venous thromboembolism [facility] Start: 01-04-2025 Inhalation therapy procedure [facility] Start: 01-04-2025 Insertion of catheter into peripheral vein [facility] Start: 01-04-2025 Measuring intake and output [facility] Start: 01-04-2025 Oxygen therapy [facility] Start: 01-04-2025 Providing care according to standard [facility] Start: 01-04-2025 Referral to asset protection lead [facility] Start: 01-04-2025 [facility] Start: 01-04-2025 Care regimes management [facility] Start: 01-04-2025 Dual pressure spontaneous ventilation support [facility] Start: 01-04-2025 Patient referral to dietitian [facility] Start: 01-03-2025 Admission procedure [facility] Start: 12-28-2024 Anesthesia vascular shunt/shunt revision [facility] Start: 12-28-2024 Arteriovenous anastomosis open direct [facility] Start: 12-28-2024 Patient discharge [facility] Start: 2024 Advance Directive Discussion Advance Directive Discussion [facility] Start: 2024 Screening for osteoporosis Bone Density Screening [facility] Start: 11-20-2024 [facility] Start: 11-04-2024 [facility] Start: 08-13-2024 End: 08-13-2024 ambulatory [facility] Start: 08-13-2024 End: 08-13-2024 Patient encounter procedure 08/13/2024 11:15 AM EDT Office Visit [facility] [address] [place] [id number] Romero Wright MD [address], [place] [address] [facility] Start: 08-10-2024 End: 07-27-2025 CT Head WO [facility] Work Phone: Start: 07-04-2024 Covid-19 Vaccine ( season) Covid-19 Vaccine ( season) [facility] Start: 07-04-2024 COVID-19 Vaccine ( season) COVID-19 Vaccine ( season) [facility] Start: 07-04-2024 COVID-19 Vaccine ( season) COVID-19 Vaccine ( season) [facility] Start: 07-04-2024 Influenza vaccination Influenza Vaccine (#1) [facility] Start: 07-04-2024 [facility] Start: 10-13-2023 [facility] Start: 10-13-2023 Bacteria identified in Urine by Culture [facility] Start: 10-23-2022 Shingrix Vaccine (2 of 2) Shingrix Vaccine (2 of 2) [facility] Start: 10-23-2022 Zoster Vaccines (2 of 2) Zoster Vaccines (2 of 2) [facility] Start: 10-23-2022 [facility] Start: 07-04-2022 Patient referral [facility] Work Phone: Start: 04-02-2022 Screening for malignant neoplasm of colon [facility] Start: 2019 RSV Immunization aged 60 or older (1 - 1-dose 60+ series) RSV Immunization aged 60 or older (1 - 1-dose 60+ series) [facility] Start: 2019 RSV Immunization for Adults (1 - Risk 60-74 years 1-dose series) RSV Immunization for Adults (1 - Risk 60-74 years 1-dose series) [facility] Start: 2019 [facility] Start: 03-05-2017 End: 03-06-2017 *CMP Complete Metabolic Panel *CMP Complete Metabolic Panel [facility] Work Phone: Start: 03-05-2017 End: 03-06-2017 *Microalbumin, Creatine Ratio, rand urine *Microalbumin, Creatine Ratio, rand urine [facility] Work Phone: Start: 03-05-2017 End: 03-06-2017 HbA1c *HgA1C [facility] Work Phone: Start: 03-05-2017 End: 03-06-2017 Lipid panel [AGGREGATE] *Lipid Profile [facility] Work Phone: Start: 02-18-2017 End: 02-23-2017 *CMP Complete Metabolic Panel *CMP Complete Metabolic Panel [facility] Work Phone: Start: 02-18-2017 End: 02-23-2017 *Microalbumin, Creatine Ratio, rand urine *Microalbumin, Creatine Ratio, rand urine [facility] Work Phone: Start: 02-18-2017 End: 02-23-2017 Lipid panel [AGGREGATE] *Lipid Profile [facility] Work Phone: Start: 12-26-2014 Lipid panel Lipid Screening [facility] Start: 01-21-2013 End: 01-21-2013 *BMP *BMP [facility] Work Phone: Start: 01-21-2013 End: 01-21-2013 *CBC with Differential *CBC with Differential [facility] Work Phone: Start: 01-21-2013 End: 01-21-2013 *CDIF - Clostridium Diff. Toxin Stool *CDIF - Clostridium Diff. Toxin Stool [facility] Work Phone: Start: 01-21-2013 End: 01-21-2013 Erythrocyte sedimentation rate *Sedimentation Rate (ESR) [facility] Work Phone: Start: 01-21-2013 End: 01-21-2013 Helicobacter pylori IgG Ab [Units/volume] in Serum *Helicobacter pylori [facility] Work Phone: Start: 01-21-2013 End: 01-21-2013 PT-TMJ PT-TMJ Physical Therapy [facility], [address] [place] [address], [id number] [facility] Work Phone: Start: 12-27-2012 Diabetes Screening [...] 1999 Screening for malignant neoplasm of breast [facility] Start: 1989 Screening for malignant neoplasm of cervix [facility] Start: 1980 Screening for malignant neoplasm of cervix [facility] Start: 1978 Hepatitis A Vaccines (1 of 2 - Risk 2-dose series) Hepatitis A Vaccines (1 of 2 - Risk 2-dose series) [facility] Start: 1977 Anxiety Screening Anxiety Screening [facility] Start: 1977 Depression Screening Depression Screening [facility] Start: 1977 Diabetes: Urine Albumin-Creatinine Ratio for Kidney Health Diabetes: Urine Albumin-Creatinine Ratio for Kidney Health [facility] Start: 1977 Hepatitis C screening Hepatitis C Screening [facility] Start: 1977 HIV screening HIV Screening [facility] Start: 1977 [facility] Start: 1971 Depression Monitoring Depression Monitoring [facility] Start: 1971 [facility] Start: 1969 Diabetic foot examination [facility] Start: 1969 Glaucoma screening [facility] Start: 1969 Preventive dental service [facility] Start: 1960 MMR Vaccines (1 of 1 - Standard series) MMR Vaccines (1 of 1 - Standard series) [facility] Start: 1960 [facility] Start: 1959 Annual wellness visit [facility] Start: 1959 Cyanocobalamin vitamin b-12 Vitamin B-12 [facility] Start: 1959 Diabetes: Celiac Disease Screening Diabetes: Celiac Disease Screening [facility] Start: 1959 Lipid panel [facility] Start: 1959 Screening for malignant neoplasm of colon [facility] Start: 1959 [facility] [employer] End: 08-09-2024 Bacteria identified in Urine by Culture [facility] Work Phone: End: 08-20-2024 Blood gases, arterial measurement [facility] [employer] End: 08-20-2024 Blood gases, venous measurement [facility] Work Phone: CT Chest [facility] CT Chest W contrast IV [facility] CT Chest WO contrast [facility] End: 08-05-2024 ECG 12 lead [facility] Work Phone: Exercise tolerance test [facility] Lipid 1995 panel - S dottie or Plasma [facility] Lipid 1995 panel - S dottie or Plasma [facility] Measurement of respiratory function [facility] Patient Education [facility] Work Phone: Patient referral [facility] Work Phone: Positron emission tomography with computed tomography [facility] Vitamin D, 25-hydrox y measurement [facility] Immunizations Immunization Date Immunization Notes Care Provider [facility] 10-28-2024 Pneumococcal Vaccine PCV20 (Prevnar 20) Dr. Bird Lujan MD Work Phone: [facility] 10-28-[address] Bird Lujan MD Work Phone: [facility] 09-27-2024 Pfizer Covid-19 (Comirnaty) Dr. Bird Lujan MD Work Phone: [facility] 07-24-2024 Influenza, seasonal, injectable, preservative free; Translations: [Influenza, Split Virus, Trivalent, PF] Tami Alfredo BARREL RIBS SOLDERER - CLEARANCE CUTTER Work Phone: [facility] 07-24-2024 [facility] DO Work Phone: [facility] 08-28-2022 influenza, injectabl e, quadrivalent, contains preservative [facility] DO Work Phone: [facility] 08-28-2022 influenza, injectabl e, quadrivalent, preservative free Dr. Bird Lujan MD Work Phone: [facility] 08-28-2022 zoster vaccine recombinant [facility] DO Work Phone: [facility] 08-28-2022 influenza virus vaccine, unspecified formulation [facility] Work Phone: [facility] 03-22-2021 Moderna COVID-19 Vaccine 100 MCG/0.5ML Intramuscular Suspension No PCP None [facility] 02-22-2021 Moderna COVID-19 Vaccine 100 MCG/0.5ML Intramuscular Suspension No PCP None [facility] 01-31-2021 pneumococcal conjuga te vaccine, 13 valent No PCP None [facility] Work Phone: 09-20-2020 pneumococcal polysaccharide vaccine, [address] Sin Lujan Work Phone: [facility] 09-20-2020 pneumococcal vaccine , unspecified formulation Dr. Sin Lujan Work Phone: [facility] Work Phone: 08-28-2020 influenza, injectabl e, quadrivalent, preservative free [employer] EDITOREliaC Jeanna Davis NP Work Phone: [facility] 08-28-2020 influenza, seasonal, injectable Dr. Sin Lujan Work Phone: [facility] 08-28-2020 [facility] DO Work Phone: [facility] 08-12-2018 influenza, injectabl e, quadrivalent, preservative free Dr. Bird Lujan MD Work Phone: [facility] 08-12-2018 influenza, seasonal, injectable No PCP None [facility] Work Phone: 08-11-[address] Sin Lujan Work Phone: [facility] 08-11-2017 Influenza, seasonal, injectable, preservative free Tami Alfredo BARREL RIBS SOLDERER - CLEARANCE CUTTER Work Phone: [facility] 08-11-2017 [facility] DO Work Phone: [facility] 07-08-2017 influenza, injectabl e, quadrivalent, contains preservative No PCP None [facility] Work Phone: 07-08-2017 influenza, injectabl e, quadrivalent, preservative free Dr. Bird Lujan MD Work Phone: [facility] 07-08-2017 tetanus toxoid, redu juliette diphtheria toxoid, and acellular pertussis vaccine, adsorbed No PCP None [facility] [employer] [address] Work Phone: 08-12-2016 pneumococcal polysaccharide vaccine, 23 valent No PCP None [facility] [place] [address] Work Phone: 07-15-2016 influenza, injectabl e, quadrivalent, preservative free [employer] EDITOREliaC Jeanna Davis NP Work Phone: [facility] 07-15-2016 influenza, seasonal, injectable Dr. Sin Lujan Work Phone: [facility] 08-07-2015 influenza, injectabl e, quadrivalent, preservative free Dr. Bird Lujan MD Work Phone: [facility] 08-07-2015 influenza, seasonal, injectable No PCP None [facility] 1800 Work Phone: 08-03-[address] Sin Lujan Work Phone: [facility] 08-03-2014 Influenza, seasonal, injectable, preservative free Tami Alfredo BARREL RI[employer] SOLDERER - CLEARANCE CUTTER Work Phone: [facility] 08-03-2014 [facility] DO Work Phone: [facility] 04-30-1995 diphtheria and tetan us toxoids, adsorbed for pediatric use [facility] DO Work Phone: [facility] Payers Date Payer Category Payer Unknown [id number] 2025 Unknown [id number] 2024 Private Health Insurance [facility] Member Subscriber Plan / Payer (Effective 2024-Present) Name: Sandy Deng Relation to Subscriber: Self Name: Sandy Deng Payer ID: Not on file Type: Indemnity Address: [place] [id number] 2024 Medicare [id number] 2024 Self-pay [id number] 2024 Commercial Managed C are - HMO [id number] 2024 Unknown 2024 Unknown [id number] 2011 Private Health Insurance [id number] Unknown [id number] Unknown [facility] [id number] Unknown [id number] 2.16.840.1.605128.3.579.2. 462 Unknown [id number] 2.16.840.1.324658.3.579.2. 462 Unknown [id number] 2.16.840.1.708987.3.579.2. 462 Unknown [id number] 2.16.840.1.983913.3.579.2. 462 Unknown [id number] 2.16.840.1.278847.3.579.2. 462 Unknown [id number] 2.16.840.1.805335.3.579.2. 462 Unknown [id number] 2.16.840.1.806071.3.579.2. 462 Unknown [id number] 2.16.840.1.861719.3.579.2. 462 Unknown [id number] 2.16.840.1.109372.3.579.2. 462 Unknown [id number] 2.16.840.1.124609.3.579.2. 462 Unknown [id number] 2.16.840.1.257791.3.579.2. 462 Unknown [id number] 2.16.840.1.241430.3.579.2. 462 Unknown [id number] 2.16.840.1.392233.3.579.2. 462 Unknown [id number] 2.16.840.1.657320.3.579.2. 462 Unknown [id number] 2.16.840.1.833040.3.579.2. 462 Unknown [id number] 2.16.840.1.177118.3.579.2. 462 Unknown [id number] 2.16.840.1.580305.3.579.2. 462 Unknown [id number] 2.16.840.1.378881.3.579.2. 462 Unknown [id number] 2.16.840.1.824385.3.579.2. 462 Unknown [id number] 2.16.840.1.244156.3.579.2. 462 Unknown [id number] 2.16.840.1.828761.3.579.2. 462 Unknown [id number] 2.16.840.1.152431.3.579.2. 462 Unknown [id number] 2.16.840.1.876510.3.579.2. 462 Unknown [id number] 2.16.840.1.554409.3.579.2. 462 Unknown [id number] 2.16.840.1.589788.3.579.2. 462 Unknown [id number] 2.16.840.1.473798.3.579.2. 462 Unknown [id number] 2.16.840.1.097008.3.579.2. 462 Unknown [id number] 2.16.840.1.863476.3.579.2. 462 Unknown [id number] 2.16.840.1.560963.3.579.2. 462 Unknown [id number] 2.16.840.1.912906.3.579.2. 462 Unknown [id number] 2.16.840.1.464152.3.579.2. 462 Unknown [id number] 2.16.840.1.817314.3.579.2. 462 Unknown [id number] 2.16.840.1.215190.3.579.2. 462 Unknown [id number] 2.16.840.1.968523.3.579.2. 462 Unknown [id number] 2.16840.1.027388.3.579.2. 462 Unknown [id number] 2.16840.1.080088.3.579.2. 462 Unknown [id number] 2.16.840.1.612483.3.579.2. 462 Unknown [id number] 2.16840.1.936972.3.579.2. 462 Unknown [id number] 2.16840.1.276932.3.579.2. 462 Unknown [id number] 2.16840.1.323677.3.579.2. 462 Unknown [id number] 2.840.1.509132.3.579.2. 462 Unknown [id number] 2.840.1.202720.3.579.2. 462 Social History Date Type Detail Facility Start: 01-10-2022 End: 07-14-2023 Tobacco smoking status NHIS Unknown if ever smoked [facility] Start: 08-26-2020 None [facility] Start: 08-26-2020 Spouse/ Signif icant Other [facility] Start: 08-29-2020 Cigarettes [facility] Start: 1960 Sex Assigned At Female W [facility] Start: 08-12-2024 End: 08-24-2024 Current smoker Current smoker [facility] Start: 1960 Sex assigned at [facility] Start: 08-12-2024 End: 08-24-2024 Gender identity Not on file [facility] Start: 08-12-2024 Tobacco smoking stat us VTIS Never smoked tobacco [facility] Start: 08-12-2024 Tobacco use and exposure Smokeless tobacco non-user [facility] Has the Qbaka, or CoNarrative threatened to shut off services in your home in past 12Mo No [facility] How often to you hav e a drink containing alcohol? Never [facility] How many standard drinks containing alcohol do you have on a typical day? [facility] (I/We) worried whetorey er (my/our) food would run out before (I/we) got money to buy more. Never true [facility] Start: 07-26-2024 End: 01-20-2025 Sex Female (finding) [facility] Start: 03-23-2009 End: 05-20-2025 Tobacco smoking status NHIS [facility] Text Equipment Identifier Dates Creation, AV fistula [id number] FDA Start: 12-28-2024 Creation, AV fistula [id number] FDA Start: 12-28-2024 Creation, AV fistula [id number] FDA Start: 12-28-2024 Blood Sugar Diagnostic (Freestyle [...] test blood sugar s 6-8 times daily [id number] Start: 03-23-2009 Blood Sugar Diagnostic (Freestyle Precision Jeff Strips) strip Start: 08-26-2023 End: 01-27-2025 Blood Sugar Diagnostic (Freestyle Precision Jeff Strips) strip Start: 08-26-2023 End: 01-27-2025 Blood Sugar Diagnostic (Freestyle Precision Jeff Strips) strip Start: 08-26-2023 End: 01-27-2025 Goals Date Patient Goal Desired Activity /State Functional Status Date Assessment Result Facility 01-06-2025 Functional status Ambulates;Bathroom Priv ilege [facility] Work Phone: Mental Status Date Assessment Result Facility 05-20-2025 Cognitive function Level Of Cons ciousness Awake;Alert;Appropriate;Follow s Commands [facility] Work Phone: 05-08-2025 Cognitive function Level Of Cons ciousness Awake;Alert;Appropriate;Follow s Commands [facility] Work Phone: 04-09-2025 Cognitive function Awake;Alert;A ppropriate;Follow s Commands [facility] Work Phone: 01-06-2025 Cognitive function Voice/Name [facility] Work Phone: 12-28-2024 Cognitive function Sedated [facility] Work Phone: 12-28-2024 Cognitive function Voice/Name [facility] Work Phone: 11-20-2024 Cognitive function Awake;Alert;A ppropriate;Follow s Commands [facility] Work Phone: Clinical Notes 05-20-2023 to 05-08-2025 Note Date & Type Note Facility 05-08-2025 Radiology Diagnostic study note [facility] Imaging Services [address] [place], [place] [id number] Abdomen/Pelvis W IV Cont ONLY MR#: [id number] Acct: [id number] Name: SANDY DENG Rep #: [id number] : 1960 F 64 From: Jose Brown MD PCP: Dr. Bird Lujan MD Status: REG ER Study:Abdomen/Pelvis W IV Cont ONLY Date of E xam: 05/08/25 Exam# [id number] Ordering Dr: Justin Lara DO PROCEDURE: ABDOMEN/PELVIS [...] 3. Other findings as noted. Reading Location: [id number] CC: Dr. Justin Parisi DO; Dr. Bird Lujan MD ~ Facing End Trimmer: Signed [facility] Work Phone: 05-08-2025 Radiology Diagnostic study note [facility] Imaging Services [address] [place] [address] Chest PA and Lateral MR#: [id number] Acct: [id number] Name: SANDY DENG Rep #: [id number] : [id number] F 64 From: Jose Brown MD PCP: Dr. Bird Lujan MD Status: REG ER Study:Chest PA and Lateral Date of Exam: 05/08/25 Exam# [id number] Ordering Dr: Justin Lara DO PROCEDURE: CHEST [...] catheter. 3. Left pleural effusion. Reading Location: [id number] CC: Dr. Justin Parisi DO; Dr. Bird Lujan MD ~ Facing End Trimmer: Signed [facility] Work Phone: 04-09-2025 Discharge summary Note Date/Time April 09, 2025 1:43pm [facility] Medical Records Department [address] [place] [address] Emergency Department Summary 04/09/25 MR#: [id number] Acct: [id number] Name: SANDY DENG Rep #:[id number] : [...] She is seen by Dr. Huerta the asset protection lead. She has history of end-stage renal disease [...] Anxiety Depression Atherosclerosis of coronary artery of [place] heart without angina pectoris NSTEMI (non-ST elevated [...] denosumab 60 mg/mL subcutaneous 60 mg subcut [id number] bone health 06/10/24 07/09/24 Rx syringe (Prolia) [...] follows: Interpretation: Sinus Bradycardia (Rate is 52. [place] to the left. RI interval is 176 ms. QRS duration 104 [...] on hemodialysis, Atherosclerosis of coronary artery of [place] heart without angina pectoris, Chronic obstructive pulmonary [...] Prolia 60 mg/mL syringe 60 mg subcut [id number] Qty: 1 1RF Patient Comments: Next injection [...] Care Provider] - 1 Week Print Language: Yemeni Disposition Disposition: Home, Self Care What to do if you have Problems For any increased pain, shortness of breath, bleeding, nausea or vomiting, chestpain, or any unexpected problems, contact your Primary Care Provider. Call [facility] ([phone]) or report to the closest Emergency Room. Call 911 if necessary. 04/09/25 1343 <Electronically signed by Milind Heath MD> Cosigner Signature (if applicable): CC: Dr. Bird Lujan MD ~ Signed [facility] Work Phone: 1(381) 916-185703-27-2025 Evaluation note* Diagnosis Onset Date Resolution Status Admit Date DM type 1 (diabetes mellitus , type 1) chronic January 27, 2025 8:40am High cholesterol chronic January 272024 8:40am Hypertension chronic January 27, 2025 8:40am Insulin pump titration chronic [facility] 2024 8:40am Osteoporosis chronic January 27, 2025 8:40am Presence of insulin pump chronic January 27, 2025 8:40am Vitamin D deficiency chronic [facility] 2024 8:40am AV fistula acute March 22, 2025 12:59pm Hypercarbia acute May 18 8:42am Lung nodule, multiple acute May 8:42am Chronic hypoxic respiratory failure chronic May 18, 2025 8:42am Chronic obstructive pulmonar y disease chronic May 18, 2025 8:42am ESRD on hemodialysis chronic May 18, 2025 8:42am Hypertension chronic May 18, 8:42am [facility] Work Phone: [phone] [id number] Evaluation note* Diagnosis Onset Date Resolution Status Admit Date DM type 1 (diabetes mellitus , type 1) chronic January 27, 2025 8:40am High cholesterol chronic January 272024 8:40am Hypertension chronic January 27, 2025 8:40am Insulin pump titration chronic [facility] 2024 8:40am Osteoporosis chronic January 27, 2025 8:40am Presence of insulin pump chronic January 27, 2025 8:40am Vitamin D deficiency [facility] 2024 8:40am AV fistula acute March 22, 2025 12:59pm Hypercarbia acute May 18 8:42am Lung nodule, multiple acute May 8:42am Chronic hypoxic respiratory failure chronic May 18, 2025 8:42am Chronic obstructive pulmonar y disease chronic May 18, 2025 8:42am ESRD on hemodialysis chronic May 18, 2025 8:42am [facility] Work Phone: 1(141) 886-385303-11-2025 Evaluation note* Diagnosis Onset Date Resolution Status [...] AV fistula acute March 22, 2025 12:59pm [facility] Work Phone: 1(288) 875-733803-11-2025 Radiology Diagnostic study [facility]03-06-2025 [facility]03-03-2025 Note [facility]02-27-2025 Telephone encounter Note* Telephone Encounter - Montana James - 12/30/2024 11:00 AM EST Called and spoke with the patient in regards to kidney transplant referral, she states she started the process with [facility], and would like to go through the process at that center, as one center is enough to go through testings, and appointments. Advised the patient if she changes her mind, provided her with our office phone number, referral ended, and she verbalized understanding. Montana James [facility]02-27-2025 Miscellaneous Notes* Telephone Encounter - Montana James - 12/30/2024 11:00 AM EST Called and spoke with the patient in regards to kidney transplant referral, she states she started the process with [facility], and would like to go through the process at that center, as one center is enough to go through testings, and appointments. Advised the patient if she changes her mind, provided her with our office phone number, referral ended, and she verbalized understanding. Montana James [facility] Telephone encounter Note * Telephone Encounter - Otilia Portillo Tech - 12/29/2024 10:50 AM EST I spoke with Lita at [facility] who confirmed the patients demographic information and confirmed that the phone number that we have on file for the patient is incorrect. The correct phone number is [phone]. [facility]02-26-2025 Miscellaneous Notes* Telephone Encounter - Otilia Portillo Tech - 12/29/2024 10:50 AM EST I spoke with Lita at [facility] who confirmed the patients demographic information and confirmed that the phone number that we have on file for the patient is incorrect. The correct phone number is [phone]. documented in this [facility]02-21-2025 Telephone encounter Note* Telephone Encounter - Montana James - 12/24/2024 1:28 PM EST Called Sandy Deng without success regarding referral. Voicemail message was left for patient to call our office. Montana James [facility]02-21-2025 Miscellaneous Notes* Telephone Encounter - Montana James - 12/24/2024 1:28 PM EST Called Sandy Deng without success regarding referral. Voicemail message was left for patient to call our office. Montana James [facility] Evaluation note* Diagnosis Onset Date Resolution Status Admit Date Atherosclerosis of coronary artery of nul[place] heart without angina pectoris chronic December 16 [...] January 03, 2025 11:39pm Parapneumonic effusion acute [facility] 2024 11:39pm Pleural effusion on left [...] 27, 2025 8:40am Insulin pump titration chronic [facility] 2024 8:40am Osteoporosis chronic January 27, 2025 8:40am Presence of insulin pump chronic January 27, 2025 8:40am Vitamin D deficiency chronic [facility] 2024 8:40am AV fistula acute March 22, 2025 12:59pm [facility] Work Phone: 1(978) 169-448301-30-2025 Evaluation note* Diagnosis Onset Date Resolution Status Admit Date ESRD (end stage renal diseas e) on dialysis chronic December 02 2:26pm Atherosclerosis of coronary artery of n[place] heart without angina pectoris chronic December 16 [...] January 03, 2025 11:39pm Parapneumonic effusion acute [facility] 2024 11:39pm Pleural effusion on left [...] 27, 2025 8:40am Insulin pump titration chronic [facility] 2024 8:40am Osteoporosis chronic January 27, 2025 8:40am Presence of insulin pump chronic January 27, 2025 8:40am Vitamin D deficiency chronic [facility] 2024 8:40am [employer] Work Phone: 1(245) 880-192012-05-2024 Evaluation note* Diagnosis Onset Date Resolution Status [...] 3:09pm ESRD on hemodialysis chronic Carlos Alberto chelsea2024 3:09pm Hypertension chronic November 04, 2024 3:09pm ESRD (end stage renal diseas e) on dialysis chronic December 02 2:26pm Atherosclerosis of coronary artery of [place] heart without angina pectoris chronic December 16, [...] January 03, 2025 11:39pm Parapneumonic effusion acute [facility] 2024 11:39pm Pleural effusion on left acute January 03, 2025 11:39pm COPD exacerbation chronic January 032024 11:39pm DM type 1 (diabetes mellitus , type 1) chronic January 03, 2025 11:39pm Hypertension chronic January 03, 025 11:39pm Acute hyperkalemia resolved January 03, 2025 11:39pm Chronic hypoxemic respirator y failure resolved January 03, 2025 11:39pm AV fistula acute January 11 2:55pm [facility] Work Phone: 1(599) 437-464410-29-2024 History of Present illness Narrative* SYED Buck CNP - 08/31/2024 1:43 PM EDT Patient seen by me at [facility]. Complete documentation including history with assessment and plan were documented in [facility] EMR. This encounter is for billing only. documented in this [facility]10-25-2024 History of Present illness Narrative* SYED Buck CNP - 08/27/2024 1:11 PM EDT Patient seen by me at [facility]. Complete documentation including history with assessment and plan were documented in [facility] EMR. This encounter is for billing only. documented in this [facility]10-23-2024 History of Present illness Narrative* SYED Buck CNP - 08/25/2024 4:04 PM EDT Patient seen by me at [facility]. Complete documentation including history with assessment and plan were documented in [facility] EMR. This encounter is for billing only. documented in this [facility]10-22-2024 Miscellaneous Notes* Care Coordination - SAPNA Ibrara - 08/24/2024 2:22 PM EDT [facility] Met with patient and spouse- patient ok with ambulette. Set up for 3:30 with roundtrip, lavern card accepted the trip. Cost provided to patient 51.80-59.80. Updated patient ,spouse-BO Garcia. Aerodynamic Consultant, [facility]. * Care Coordination - Kimberlee Valdovinos - 08/24/2024 12:45 PM EDT Discharge med list transmitted to REHAB- [facility] for return via [facility] per [facility] request. * Care Coordination - Jesi Bach RN - 08/24/2024 12:38 PM EDT Auth obtained for [facility]. SW messaged to set up transport, WATER PIPE INSTALLER messaged to send orders and MAR. * [...] goals for the shift include Wean O2 \\ * Care Coordination - Kayli Yepez RN - 08/21/2024 10:33 AM EDT Care Management Progress Note Discharge Plan: [facility] This calliope player was tasked to follow this patient through the weekend assisting with dischargeplanning. Chart was reviewed. Messaged [facility] Liaison through secure chat to clarify [...] at baseline and stable to transfer to [facility]. PT/OT recommending IPR. Confirmed with Supervisor Printing Shop Carmelina that Insurance Authorization started for [facility] this am. Will await authorization [...] at baseline and stable for transfer to [facility]. Discharge plan [facility]. Requested PT/OT evaluation today if possible to [...] EDT KRUNAL coverage for today[facility] SW received SDOH consult due to pt being unable to answer any questions upon admission due to altered mental status. SW following along with [facility]. * Care Coordination - Amira Stark - 08/13/2024 10:20 AM EDT Return referral placed to [facility] via [facility] per [facility] request. Await review and response regarding ability to accept. [facility]CC notified. * Care Coordination - An Werner RN - 08/13/2024 9:56 AM EDT Care Managment Initial Assessment Date: 08/13/2024 Patient Name: Sandy Deng : 1960 Patient Information Source of Information: Patient Brine Process Operator Name/Contact Information: Jose at the bedside. Cognition/Language: Impaired Permission given to speak with patient patient services representative/caregiver as indicated: Yes Confirmation of Payer with patient/family: Yes Payer Name: [employer] [place]: No Confirmation of Primary Care Physician: Confirmed [...] Levels: Facility: Inpatient Rehab Facility Facility Name: [facility] Plan to Return: Yes Lives with: Spouse/significant [...] expects to be discharged to: Return to [facility] to complete rehab. Discharge Planning Actions: Continue to follow Patient's Choice Rights and [employer] and Collaborative Relationships Disclosed as Indicated for Post-Acute Care: Interdisciplinary Team Engagement: Acute Rehab Social Work Referral for: Additional Information: Patient admitted to T3 from [facility] for Altered Mental Status. Confirmed at the bedside with Jose Deng that patient is from [facility] and that the discharge plan if for her to return. Referral placed in [facility]. Patient is currently on continuous EEG [...] Outcome: Not Progressing documented in this [facility]10-22-2024 [facility] 08-24-2024 Hospital course Narrative* William Jarrett DO [...] , and T1DM who was managed at [facility] from 08/12/24-08/24/24 for acute on chronic hypoxic and hypercapnic respiratory failure. Of note, patient was admitted from [facility] recent hospital admission from 07/26/24-08/10/24 when she was managed in the ICU for septic shock/subdural hematoma. While at [facility], patient experienced altered mental status and was found hypoxic in the 80's. She was managed in the ICU with NIV and brought to the general medical floor. While on the [facility], patient experienced AMS likely due to CO2 narcosis and was brought back to the ICU on NIV. She was stabilzed with improved mentation and ultimately was transferred back to the [facility] and strongly urged to use BiPap [...] Breztri Aerosphere 160-9-4.8 MCG/ACT aerosol Generic drug: Plwnvwq-Otjexjhpqog-Txaobqwuee busPIRone 7.5 MG tablet Commonly known as: [...] Commonly known as: Nitrostat * Omnipod 5 IepQ1V3 Intro Gen 5 kit * Omnipod 5 [id number] Pods Gen 5 misc Prolia 60 MG/ML solution prefilled syringe Generic drug: denosumab simvastatin 40 MG tablet Commonly known as: Zocor SPS 15 GM/60ML suspension Generic drug: sodium polystyrene Trelegy Ellipta 200-62.5-25 MCG/ACT aerosol powder Generic drug: Dnhjusrisld-Nnjdweotk-Najwct * This list has 2 medication(s) that [...] 1:33 PM EDT documented in this [facility]10-22-2024 History of Present illness Narrative* William Jarrett [...] so no tx. Plan transfer back to [facility] when arrangements in place. 31 (Discharge 59009) minutes spent nfec-pk-pjum/floor time coordinating care and/or counseling patient. Savita Denise MD * Joni Monson MD - 08/23/2024 11:24 AM EDT Images from the original note were not included. Nephrology Progress Note Patient: Sandy Deng Room number: [id number] A Date of Admit: 08/12/2024 LOS: 11 days Referring physician: Kemar Adames DO Outpatient Warehouse Picker: Christy Huerta Assessment/Plan: Mrs. Sandy Deng is a 63 year old female with PMH of CKD 4, DM type 1, HTN, CAD, COPD (3L [id number]), initially presenting with resp distress and delirium, Covid positive. Also found to havepseudomonas and staph aures PNA. She was intubated, now extubated. CT head showed a small right SDH. Consulted for UMA on CKD 4 - follows with Dr Christy Huerta ([place]). On review of available labs,Cr has been 2.4-2.8, last (04/26) Cr 2.4 eGFR 20, 24 hr fahsybu=8235 mg. On admit, (07/26) Cr 4.56, CRRT [...] care of this patient. Joni Monson MD [facility] ([facility]) Office phone: [phone] Office fax: [phone] 08/23/2024 Subjective Patient seen this am, spouse [...] PO (chewing/swallowing) however monitor acute need for MAGNETIC TESTER eval. Per MNT protocol will add 2PM [...] ? loss at baseline such as in anabaptism, clavicle, etc (muscle)) Fluid Accumulation: No significant fluid accumulation (per chart) (BUE pitting, BLE non-pitting perflowsheets) Head Boys Golf Coach Strength: Not Performed Nutrition Assessment: Pt with [...] (pt was d/c 08/10, initially presented to [facility] 07/23 w/ acute [...] removed 2.3L; pt stable for transfer to [facility] after being treated for septic shcok [...] admit --> 07/28/24: 134# bedscale, 08/07/24:126# bedscale) [place] Body Weight (lbs) (Calculated): 130 lbs [place] Body Weight (Kg) (Calculated): 59 kg % [place] Body Weight (Calculated): 83.1 % BMI (kg/m2) [...] Renae Squires RD Contact: Secure chat or *[id number] * Shanti Bianchi NP - 08/23/2024 9:26 AM EDT Images from the original note were not included. [facility] Progress Note Sadny Deng AGE: 63 y.o. GENDER: female : [...] present and 50,000-90,000 abbi albicans. - Hx babi growth on recent urine cultures x2, no [...] not being treated; urology consulted. 35 (Subsequent 87908) minutes spent cxyz-mh-uyng/floor time coordinating care and/or counseling patient. Savita [...] (3 days 10mg, 3 days 5mg) Anticipated [place] Medications (ICU initiated) or Dose Changes and [...] original note were not included. OCCUPATIONAL THERAPY [facility] Treatment Note Name/MRN: Sandy Deng ([id number]) Date of : 1960 Age: 63 y.o. Room/Bed: T3-304/T3-304 A Discharge Recommendation: IP Rehab Other: Continue to assess pending progress. Prior Level of Function Prior Level of ADL Function: Independent Prior Level of Mobility: Independent; Device: Front wheeled walker Prior Level of Transfers: Independent Pt requires assistance at [facility], information of independent is baseline [...] original note were not included. PHYSICAL THERAPY [facility] Re-Evaluation Name/MRN: Sandy Deng ([id number]) Evaluation Date: 08/22/2024 Date of : 1960 [...] COPD (chronic obstructive pulmonary disease) ([facility]) Diabetic neuropathy ([facility]) Hyperlipidemia Myocardial infarct ([facility]) Stage 4 chronic kidney disease ([facility]) Type 1 diabetes ([facility]) Past Surgical History: Past Surgical History: Procedure Laterality Date CORONARY ANGIOPLASTY WITH STENT PLACEMENT CORONARY ANGIOPLASTY WITH STENT PLACEMENT Admission Diagnosis: Patient Active Problem List Diagnosis Date Noted Anxiety disorder due to medical condition 08/12/2024 Atherosclerosis of coronary artery 08/12/2024 Chest pain 08/12/2024 Chronic constipation 08/12/2024 Cigarette smoker 08/12/2024 Adrian's sign present 08/12/2024 Depressive disorder 08/12/2024 Diabetic polyneuropathy (CMS/HCC) ([facility]) 08/12/2024 Dizziness 08/12/2024 Gastroparesis 08/12/2024 Hypoglycemia 08/12/2024 Injury of kidney 08/12/2024 Intermittent palpitations 08/12/2024 Intractable vomiting with nausea 08/12/2024 Respiratory failure with hypoxia ([facility]) 08/12/2024 Skin lesion of foot 08/12/2024 Hypercapnic respiratory failure ([facility]) 08/12/2024 SDH (subdural hematoma) ([facility]) 07/26/2024 COPD (chronic obstructive pulmonary disease) ([facility]) 07/26/2024 Type 1 diabetes mellitus with kidney complication ([facility]) 07/26/2024 Myocardial infarction ([facility]) 07/26/2024 Hyperlipidemia 07/26/2024 Diabetic neuropathy associated with type 1 diabetes mellitus ([facility]) 07/26/2024 Stage 4 chronic kidney disease ([facility]) 07/26/2024 Acute renal failure ([facility]) 07/26/2024 Anemia 07/26/2024 Hypocalcemia 07/26/2024 Multiple pulmonary nodules 05/17/2024 Underweight 04/14/2024 Solitary pulmonary nodule 02/06/2024 Wheezing 10/29/2023 History of coronary artery stent placement 02/04/2018 Nicotine dependence 01/08/2017 Hypertension 01/08/2017 Diabetic ketoacidosis ([facility]/HCC) ([facility]) 12/30/2012 Medical Precautions: No active [...] Responsibilities: Independent Receives Help From: Spouse Active Stock Grader: N/A Prior Level of Function Prior Level [...] of Care supervision is transferred to a [facility] Physical Therapist. Goals and/or [...] Normal [] Scar/Lesion/Mass Inspection of teeth/lips/gums Dentition: []False Pass Teeth []Dentures Lips/Gums: [x]Intact []Lesion Present Mucosa: [x][place] []Moist []Dry Neck: External Appearance Overall Appearance: [...] 0825 08/21/24 1432 PHART 7.274* 7.286* 7.373 IPY9BRE 59.2* 59.5* 51.3* PO2ART 113.3* 88.7 85.9 KCD1VDX 26.8* 27.7* 29.2* G3PASFWY 40% Oxygen CPAP CPAP Lactic Acid: No [...] DVT Prophylaxis: Heparin subcutaneous Disposition: Transfer to [facility] Cosigned by Kemar Adames DO at 08/22/2024 3:38 PM EDT Associated attestation - Kemar Adames DO - 08/22/2024 3:38 PM EDT I have personally performed a ckow-tv-nueg diagnostic evaluation on this patient on date of uuoeitl08/20/24. History, labs, imaging studies, and electronic medical record have been reviewed by me. This note documented by the []Critical Care Fellow [x]bunk house worker []TONJA reflects my history, exam, and [...] days Referring physician: Savita Denise MD Outpatient Warehouse Picker: Christy Huerta Assessment/Plan: Mrs. Sandy Deng is a 63 year old female with PMH of CKD 4, DM type 1, HTN, CAD, COPD (3L U7tdgktfsg), initially presenting with resp distress and delirium, Covid positive. Also found to havepseudomonas and staph aures PNA. She was intubated, now extubated. CT head showed a small right SDH. Consulted for UMA on CKD 4 - follows with Dr Christy Huerta ([place]). On review of available labs,Cr has been 2.4-2.8, last (04/26) Cr 2.4 eGFR 20, 24 hr mtdnbnm=1335 mg. On admit, (07/26) Cr 4.56, CRRT [...] care of this patient. Karyn Jones MD [facility] ([facility]) Pager [phone] Office phone: [phone] Office fax: [phone] 08/21/2024 Subjective Patient seen this am. She [...] Inspection of teeth/lips/gums (NIV mask inplace)_ Dentition: []False Pass Teeth []Dentures Lips/Gums: []Intact []Lesion Present Mucosa: [][place] []Moist []Dry Neck: External Appearance Overall Appearance: [...] 08/20/24 1558 08/20/242120 PHART 7.244* 7.242* 7.274* OZP8AJS 68.4* 67.9* 59.2* PO2ART 36.2* 101.2* 113.3* UGR5FUI 28.9* 28.6* 26.8* N2USQMNR Bi-PAP 40% Oxygen 40% Oxygen Lactic Acid: [...] PM EDT I have personally performed a gafv-yy-ucyv diagnostic evaluation on this patient on date of /19/24. History, labs, imaging studies, and electronic medical record have been reviewed by me. This note documented by the []Critical Care Fellow [x]bunk house worker []TONJA reflects my history, exam, and [...] Progress Note Patient: Sandy Deng Room number: 7-724/[facility]724 A Date of Admit: 08/12/2024 LOS: 8 days Referring physician: Savita Denise MD Outpatient Warehouse Picker: Christy Huerta Assessment/Plan: Mrs. Sandy Deng is a 63 year old female with PMH of CKD 4, DM type 1, HTN, CAD, COPD (3L Q2wsqgvoqw), initially presenting with resp distress and delirium, Covid positive. Also found to havepseudomonas and staph aures PNA. She was intubated, now extubated. CT head showed a small right SDH. Consulted for UMA on CKD 4 - follows with Dr Christy Huerta ([place]). On review of available labs,Cr has been 2.4-2.8, last (04/26) Cr 2.4 eGFR 20, 24 hr wzbqzqp=4058 mg. On admit, (07/26) Cr 4.56, CRRT [...] be covering this weekend. Joni Monson MD [facility] ([facility]) Office phone: [phone] Office fax: [phone] 08/20/2024 Subjective Patient seen this am, spouse [...] with small pleural effusions. * Sherri Domingo, BARREL RIBS SOLDERER - CLEARANCE CUTTER - 08/20/2024 8:33 AM EDT Images from the original note were not included. [facility] Progress Note Sandy Deng AGE: [...] tablet by mouth 2 times daily. Cholecalciferol ([place] Vitamin D3) 25 MCG (1000 UT) chewable [...] to follow Recommend to follow up at [facility] after hospital [...] Report Dictated on Electronically Signed By: Kami Borwn MD Electronically Signed Date/Time: 08/12/2024 1:13 PM [...] Daily PRN, Janell Booker MD sodium chloride ([place]) 0.65 % nasal spray 1 spray, 1 [...] like to meet with SW or case management specialist to discuss insurance coverage for dialysis before [...] use BiPAP overnight. Pulmonary following. 35 (Subsequent 86332) minutes spent ipyb-qt-vjga/floor time coordinating care and/or counseling patient. Savita Denise MD * Joni Monson MD - 08/19/2024 3:19 PM EDT Images from the original note were not included. Nephrology Progress Note Patient: Sandy Deng Room number: [id number]/W7-724 A Date of Admit: 08/12/2024 LOS: 7 days Referring physician: Kemar Adames DO Outpatient Warehouse Picker: Christy Huerta Assessment/Plan: Mrs. Sandy Deng is a 63 year old female with PMH of CKD 4, DM type 1, HTN, CAD, COPD (3L P4gxtnfquf), initially presenting with resp distress and delirium, Covid positive. Also found to havepseudomonas and staph aures PNA. She was intubated, now extubated. CT head showed a small right SDH. Consulted for UMA on CKD 4 - follows with Dr Christy Huerta ([place]). On review of available labs,Cr has been 2.4-2.8, last (04/26) Cr 2.4 eGFR 20, 24 hr zguvivx=5968 mg. On admit, (07/26) Cr 4.56, CRRT [...] care of this patient. Joni Monson MD [facility] ([facility]) Office phone: [phone] Office fax: [phone] 08/19/2024 Subjective Patient seen this am afternoon. [...] hours ending 08/19/24 1519 [REMOVED] Urethral Catheter Qewevejb-bsw-Owekrb (mL): 25 mL FIO2 needs: on 4 [...] original note were not included. PHYSICAL THERAPY [facility] Treatment Note Name/MRN: Sandy Deng ([id number]) Date of : 1960 Age: 63 y.o. [...] time needed with all mobility and very [place].Noted wet, non-productive cough and tends to fatigue [...] Narrative [facility] 1960 [id number] Exam Date/Time: 08/12/2024 13:10 Procedure: XR CHEST [...] Daily PRN, Janell Booker MD sodium chloride ([place]) 0.65 % nasal spray 1 spray, 1 [...] like to meet with SW or case management specialist to discuss insurance coverage for dialysis before [...] PT and OT recommended IPR on discharge. crew manager following Cosigned by Savita Denise MD [...] as directed by pulmonary service. 35 (Subsequent [id number]) minutes spent ghwy-ts-fvun/floor time coordinating care and/or counseling patient. Savita [...] liquids [facility]. [facility] Soft and Bite Sized Diet with Mildly Thick Liquids. RN and pt subjective denying issues with swallowing at this time. Continue to monitor need for MAGNETIC TESTER assessment given rec ent recommendations. 2. Will [...] flowsheets) (BUE pitting, BLE non-pitting per flowsheets) Head Boys Golf Coach Strength: Not Performed Nutrition Assessment: pt with previously reviewed PMH who remains admitted to the ICU after she initially presented to [facility] ED on 08/12/24 in respiratory distress, pt was d/c to [facility] following admit and was found with altered mentation, NC was taken off and pulse ox was 80%, pt was brought to [facility] ED for assessment, in theED mental [...] has been deemed stable for transfer to [facility] since 08/14. In terms of nutrition [...] [facility] Soft and [...] admit --> 07/28/24: 134# bedscale, 08/07/24:126# bedscale) [place] Body Weight (lbs) (Calculated): 130 lbs [place] Body Weight (Kg) (Calculated): 59 kg % [place] Body Weight (Calculated): 83.1 % BMI (kg/m2) [...] determine Lidia Rojas RD Contact: available via Seeder or *[phone] * Joni Monson MD - 08/18/2024 12:55 PM EDT Images from the original note were not included. Nephrology Progress Note Patient: Sandy Deng Room number: T3-321/T3-321 A Date of Admit: 08/12/2024 LOS: 6 days Referring physician: Kemar Adames DO Outpatient Warehouse Picker: Christy Huerta Assessment/Plan: Mrs. Sandy Deng is a 63 year old female with PMH of CKD 4, DM type 1, HTN, CAD, COPD (3L [id number]), initially presenting with resp distress and delirium, Covid positive. Also found to havepseudomonas and staph aures PNA. She was intubated, now extubated. CT head showed a small right SDH. Consulted for UMA on CKD 4 - follows with Dr Christy Huerta ([place]). On review of available labs,Cr has been 2.4-2.8, last (04/26) Cr 2.4 eGFR 20, 24 hr liibdhk=0319 mg. On admit, (07/26) Cr 4.56, CRRT [...] ID -off ABs 7. Dispo: -looking for [facility] Will follow along as directed. Thank you for allowing us to participate in the care of this patient. Case discussed with primary team. Joni Monson MD [facility] ([facility]) Office phone: [phone] Office fax: [phone] 08/18/2024 Subjective Patient seen this am during [...] ml Net -3250 ml [REMOVED] Urethral Catheter Vclfbomp-oqe-Tqbzbe (mL): 25 mL FIO2 needs: on 4 [...] pleural effusions. * Mayra Almeida, SYED - CLEARANCE CUTTER - 08/18/2024 12:05 PM EDT Images from the original note were not included. [facility] Wound Care PROGRESS Note Sandy Deng AGE: [...] and tech present at [facility]. [facility] PAST MEDICAL HISTORY Past [...] tablet by mouth 2 times daily. Cholecalciferol (COX MONETT Vitamin D3) 25 MCG (1000 UT) chewable tablet Chew. clopidogrel (Plavix) 75 MG tablet Take 1 tablet by mouth daily. Continuous Glucose Sensor (Dexcom G6 Sensor) misc Continuous Glucose Transmitter (Dexcom G6 transmitter) [facility] fluticasone (Flonase) 50 MCG/ACT nasal spray Administer [...] to follow Recommend to follow up at [facility] after hospital [...] been recently discharged 2 days prior to [facility], and was found altered, nasal [...] Normal [] Scar/Lesion/Mass Inspection of teeth/lips/gums Dentition: [x]False Pass Teeth []Dentures Lips/Gums: [x]Intact []Lesion Present Mucosa: [x][place] (noted dry blood in mouth) []Moist [x]Dry [...] 15.7* ABGs: No results for input(s): PHART, VJC9JCZ, PO2ART, NXJ6GNV, SO2ART, C4XHVVBV in thelast 72 hours. Lactic Acid: No [...] OT recommended IPR on discharge, contacted case management specialist for prior auth timeline for discharge to [facility] Spoke with pt who would like to meet with SW or case management specialist to discuss insurance coverage for dialysis before pt is discharged from hospital. Encourage ambulation GI Prophylaxis: Pantoprazole PO DVT Prophylaxis: Heparin subcutaneous Disposition: Transfer to [facility], insurance auth started yesterday for [facility], expect it to take 2-3 days Cosigned by Kemar Adames DO at 08/18/2024 8:23 PM EDT Associated attestation - Kemar Adames DO - 08/18/2024 8:23 PM EDT I have personally performed a alel-co-ctuo diagnostic evaluation on this patient on date of /16/24. History, labs, imaging studies, and electronic medical record have been reviewed by me. This note documented by the []Critical Care Fellow [x]bunk house worker []TONJA reflects my history, exam, and [...] original note were not included. PHYSICAL THERAPY [facility] Initial Evaluation Name/MRN: Sandy Deng ([id number]) Evaluation Date: 08/17/2024 Date of : 1960 [...] tasks. Pt present and states pt at [facility] for one night and had respiratory event. Was not seen for therapies there yet but plan to go back for continued therapies. Pain: Pt denies any current pain. Past Medical History: Past Medical History: Diagnosis Date COPD (chronic obstructive pulmonary disease) ([facility]) Diabetic neuropathy ([facility]) Hyperlipidemia Myocardial infarct ([facility]) Stage 4 chronic kidney disease ([facility]) Type 1 diabetes ([facility]) Past Surgical History: Past Surgical History: Procedure Laterality Date CORONARY ANGIOPLASTY WITH STENT PLACEMENT CORONARY ANGIOPLASTY WITH STENT PLACEMENT Admission Diagnosis: Patient Active Problem List Diagnosis Date Noted Anxiety disorder due to medical condition 08/12/2024 Atherosclerosis of coronary artery 08/12/2024 Chest pain 08/12/2024 Chronic constipation 08/12/2024 Cigarette smoker 08/12/2024 Buckeye's sign present 08/12/2024 Depressive disorder 08/12/2024 Diabetic polyneuropathy (CMS/HCC) (HCC) 08/12/2024 Dizziness 08/12/2024 Gastroparesis 08/12/2024 Hypoglycemia 08/12/2024 Injury of kidney 08/12/2024 Intermittent palpitations 08/12/2024 Intractable vomiting with nausea 08/12/2024 Respiratory failure with hypoxia (HCC) 08/12/2024 Skin lesion of foot 08/12/2024 Hypercapnic respiratory failure ([facility]) 08/12/2024 SDH (subdural hematoma) ([facility]) 07/26/2024 COPD (chronic obstructive pulmonary disease) ([facility]) 07/26/2024 Type 1 diabetes mellitus with kidney complication ([facility]) 07/26/2024 Myocardial infarction ([facility]) 07/26/2024 Hyperlipidemia 07/26/2024 Diabetic neuropathy associated with type 1 diabetes mellitus ([facility]) 07/26/2024 Stage 4 chronic kidney disease ([facility]) 07/26/2024 Acute renal failure ([facility]) 07/26/2024 Anemia 07/26/2024 Hypocalcemia 07/26/2024 Multiple pulmonary nodules 05/17/2024 Underweight 04/14/2024 Solitary pulmonary nodule 02/06/2024 Wheezing 10/29/2023 History of coronary artery stent placement 02/04/2018 Nicotine dependence 01/08/2017 Hypertension 01/08/2017 Diabetic ketoacidosis ([facility]) ([facility]) 12/30/2012 Medical Precautions: No active [...] Responsibilities: Independent Receives Help From: Spouse Active Stock Grader: N/A Prior Level of Function Prior Level [...] of Care supervision is transferred to a [facility] Physical Therapist. Goals and/or treatment plan was established in collaboration with patient/family/other representatives. Cosigned by Maranda Greer PT at 08/17/2024 3:14 PM EDT * Jamey Muro, OT - 08/17/2024 10:28 AM EDT Images from the original note were not included. OCCUPATIONAL THERAPY [facility] Initial Evaluation Name/MRN: Sandy Deng ([id number]) Evaluation Date: 08/17/2024 Date of : 1960 Admission Date: 08/12/2024 12:53 PM Age: 63 y.o. Room/Bed: T3-321/T3-321 A Discharge Recommendation: IP Rehab Other: Continue to assess pending progress. Assessment IMPRESSION: Pt presented with respiratory failure, hypoxia, and AMS upon admission. Pt had recent hospital admission for septic shock and subdural hematoma, pt went to [facility] for 2 days and thenended up in ER for this admission. Pt is independent prior to first admission and requires assistance prior to this admission at [facility]. Per pt and , therapy [...] 08/12/2024 Chronic constipation 08/12/2024 Cigarette smoker 08/12/2024 Buckeye's sign present 08/12/2024 Depressive disorder 08/12/2024 Diabetic polyneuropathy ([facility]/HCC) ([facility]) 08/12/2024 Dizziness 08/12/2024 Gastroparesis 08/12/2024 Hypoglycemia 08/12/2024 Injury of kidney 08/12/2024 Intermittent palpitations 08/12/2024 Intractable vomiting with nausea 08/12/2024 Respiratory failure with hypoxia ([facility]) 08/12/2024 Skin lesion of foot 08/12/2024 Hypercapnic respiratory failure ([facility]) 08/12/2024 SDH (subdural hematoma) ([facility]) 07/26/2024 COPD (chronic obstructive pulmonary disease) ([facility]) 07/26/2024 Type 1 diabetes mellitus with kidney complication ([facility]) 07/26/2024 Myocardial infarction ([facility]) 07/26/2024 Hyperlipidemia 07/26/2024 Diabetic neuropathy associated with type 1 diabetes mellitus ([facility]) 07/26/2024 Stage 4 chronic kidney disease ([facility]) 07/26/2024 Acute renal failure ([facility]) 07/26/2024 Anemia 07/26/2024 Hypocalcemia 07/26/2024 Multiple pulmonary nodules 05/17/2024 Underweight 04/14/2024 Solitary pulmonary nodule 02/06/2024 Wheezing 10/29/2023 History of coronary artery stent placement 02/04/2018 Nicotine dependence 01/08/2017 Hypertension 01/08/2017 Diabetic ketoacidosis ([facility]) ([facility]) 12/30/2012 Medical Precautions: No active [...] is from first admission, pt was ar [facility] prior to this admission Patient admitted from home. Lives With: Spouse Type of Home: single family home Home Layout: Single Level Home Home Access: Stairs to Enter without Rails (# of stairs: 3) Bathroom Shower/Tub: Walk in Shower Toilet: Standard Home Equipment: front wheeled walker Homemaking Responsibilities: Independent Receives Help From: Spouse Active Stock Grader: N/A Prior Level of Function Prior Level of ADL Function: Independent Prior Level of Mobility: Independent; Device: Front wheeled walker Prior Level of Transfers: Independent Pt requires assistance at [facility], information of independent is baseline [...] of Care supervision is transferred to a [facility] Occupational Therapist. Goals and/or treatment plan was established in collaboration with patient/family/other representatives. * Radha eKlley RCP - 08/17/2024 9:48 AM EDT [facility] Respiratory Care Department Progress Note As part [...] and subdural hematoma who presents to the [facility] respiratory distress. Patient had been recently discharged 2 days prior to [facility], and was found altered, nasal cannula [...] of teeth/lips/gums Lips/Gums: [x]Intact []Lesion Present Mucosa: [x][place] []Moist []Dry Neck: External Appearance Overall Appearance: [...] 15.8* ABGs: No results for input(s): PHART, QYR3MTP, PO2ART, XUR1MOI, SO2ART, V5KUGHOK in thelast 72 hours. Lactic Acid: No [...] like to meet with SW or case management specialist to discuss insurance coverage for dialysis before pt is discharged from hospital. Encourage ambulation. GI Prophylaxis: Pantoprazole PO DVT Prophylaxis: Heparin subcutaneous Disposition: Transfer to [facility] Cosigned by Kemar Adames DO at 08/17/2024 7:07 PM EDT Associated attestation - Kemar Adames DO - 08/17/2024 7:07 PM EDT I have personally performed a dpwj-uq-mpzf diagnostic evaluation on this patient on date of vpglszi25/15/24. History, labs, imaging studies, and electronic medical record have been reviewed by me. This note documented by the []Critical Care Fellow [x]bunk house worker []TONJA reflects my history, exam, and [...] days Referring physician: Kemar Adames DO Outpatient Warehouse Picker: Christy Huerta DO ASSESSMENT/PLAN: #Nonoliguric UMA, dialysis dependent: PLANT INSPECTOR dependent since 07/26 last admit. Baseline Cr had been 2.4-2.8, last (04/26) Cr 2.4 eGFR 20, 24 hr mpwnwnw=3261 mg. -Suspected ATN in setting of infection/HD [...] Skin: warm and dry, no rash Access: [facility] with clean dressing DATA: LABS: Recent Labs [...] 231 08/12/2024 Lab Results Component Value Date [id number] 932 (H) 08/12/2024 FOLATE 10.8 08/12/2024 Lab [...] LABFUNG IMAGING: POCT glucose meter Performed by: [facility], [address] [place] [id number] CLIA ID: [id number] POCT glucose meter Performed by: [facility], [address] [place] [id number] CLIA ID: [id number] Signed: Jose Carlos Medrano MD Nephrology [facility] ([facility]) Pager: [phone] Office Office * Sherri Domingo, BARREL RIBS SOLDERER - CLEARANCE CUTTER - 08/16/2024 10:32 AM EDT Images from the original note were not included. [facility] Wound Care PROGRESS Note Sandy Deng AGE: [...] tablet by mouth 2 times daily. Cholecalciferol (COX MONETT Vitamin D3) 25 MCG (1000 UT) chewable [...] prep barrier wipe daily and PRN, leave LEAD RAMP AGENT Nutritional support Wound Care to follow Recommend to follow up at [facility] after hospital [...] from the original note were not included. [facility] - Infectious Diseases Attending Progress Note [...] and subdural hematoma who presents to the [facility] respiratory distress. Patient had been recently discharged 2 days prior to [facility], and was found altered, nasal [...] Normal [] Scar/Lesion/Mass Inspection of teeth/lips/gums Dentition: []False Pass Teeth []Dentures Lips/Gums: [x]Intact []Lesion Present Mucosa: [x][place] []Moist []Dry Neck: External Appearance Overall Appearance: [...] ABGs: Recent Labs 08/13/24 0658 PHART 7.291* QZT3XAU 49.4* PO2ART 84.7 FFN5RQP 23.3 I7RCGDEH 30% Oxygen Lactic Acid: Recent Labs 08/13/24 [...] like to meet with SW or case management specialist to discuss insurance coverage for dialysis before pt is discharged from hospital. GI Prophylaxis: Pantoprazole PO DVT Prophylaxis: SCDs, subcutaneous heparin Disposition: Transfer to [facility] Cosigned by Kemar Adames DO at 08/16/2024 8:35 PM EDT Associated attestation - Kemar Adames DO - 08/16/2024 8:35 PM EDT I have personally performed a gixw-hs-blgi diagnostic evaluation on this patient on date of tbvipbf30/14/24 . History, labs, imaging studies, and electronic medical record have been reviewed by me. This note documented by the [x]bunk house worker []TONJA reflects my history, exam, and [...] days Referring physician: Elizabeth Tyler MD Outpatient Warehouse Picker: Dr. Christy Huerta Assessment / Plan 63 [...] hypercapneic respiratory failure. #Nonoliguric UMA, dialysis dependent: PLANT INSPECTOR dependent since 07/26 last admit. Baseline Cr had been 2.4-2.8, last (04/26) Cr 2.4 eGFR 20, 24 hr bbovzru=8721 mg. -Suspected ATN in setting of infection/HD [...] last admit -On vanc/zosyn -ID evaluating Access: [facility] 07/29 Recommendations: -No acute indications for HD, next treatment tomorrow 08/16 -Repeat lasix 100 mg IV today -Will follow pancytopenia workup per primary, using citrate locks for HD line pending HIT testing -Renal function panel daily Thank you for allowing us to participate in the care of this patient. Please call with any questions. Saroj Gaffney MD [facility] ([facility]) Office phone: [phone] Office fax: [phone] Pager: [phone] 08/15/24 Subjective No acute events. Fairly modest response to high dose lasix yesterday and solutes uptrending. Still short of breath today and with some LE edema. Past Medical History Past Medical History: Diagnosis Date COPD (chronic obstructive pulmonary disease) ([facility]) Diabetic neuropathy (HCC) Hyperlipidemia Myocardial infarct ([facility]) Stage 4 chronic kidney disease ([facility]) Type 1 diabetes ([facility]) Medications Scheduled Meds:aspirin, 81 mg, [...] and subdural hematoma who presents to the [facility] respiratory distress. Patient had been recently discharged 2 days prior to [facility], and was found altered, nasal [...] Normal [] Scar/Lesion/Mass Inspection of teeth/lips/gums Dentition: []False Pass Teeth []Dentures Lips/Gums: [x]Intact []Lesion Present Mucosa: [x][place] []Moist []Dry Neck: External Appearance Overall Appearance: [...] 2333 08/13/24 0658 PHART -- -- 7.291* UFZ3FDD -- -- 49.4* PO2ART -- -- 84.7 FJJ0LUI -- -- 23.3 H6HZFUSW Bi-PAP 30% Oxygen 30% Oxygen Lactic Acid: [...] PO DVT Prophylaxis: SCDs Disposition: Transfer to [facility] Cosigned by Elizabeth Tyler MD at 08/15/2024 1:22 PM EDT Associated attestation - Elizabeth Tyler MD - 08/15/2024 1:22 PM EDT I have personally performed a gxhm-iy-ecrx diagnostic evaluation on this patient on date of vzsdanh43/13/24. History, labs, imaging studies, and electronic medical record have been reviewed by me. This note documented by the [x]bunk house worker []TONJA reflects my history, exam, and [...] days Referring physician: Elizabeth Tyler MD Outpatient Warehouse Picker: Dr. Christy Huerta Assessment / Plan 63 [...] hypercapneic respiratory failure. #Nonoliguric UMA, dialysis dependent: PLANT INSPECTOR dependent since 07/26 last admit. Baseline Cr had been 2.4-2.8, last (04/26) Cr 2.4 eGFR 20, 24 hr ngeligq=1895 mg. -Suspected ATN in setting of infection/HD [...] last admit -On vanc/zosyn -ID evaluating Access: [facility] 07/29 Recommendations: -No acute indications for HD, monitoring for recovery -Lasix challenge today 100 mg IV x1 -Will follow pancytopenia workup per primary, using citrate locks for HD line pending HIT testing -Renal function panel daily Thank you for allowing us to participate in the care of this patient. Please call with any questions. Saroj Gaffney MD [facility] ([facility]) Office phone: [phone] Office fax: [phone] Pager: [phone] 08/14/24 Subjective No acute events. No issues with HD yesterday, UF 2.5L. Patient somewhat more awake/alert today. Slight shortness of breath and wheezing. No other complaints. Past Medical History Past Medical History: Diagnosis Date COPD (chronic obstructive pulmonary disease) ([facility]) Diabetic neuropathy (HCC) Hyperlipidemia Myocardial infarct (HCC) Stage 4 chronic kidney disease ([facility]) Type 1 diabetes ([facility]) Medications Scheduled Meds:aspirin, 81 mg, [...] Yes, addressed in today's progress note Anticipated [place] Medications (ICU initiated) or Dose Changes and [...] of ICU transfer, page MICU res director prison for clarifications. * Janell Booker MD - [...] [facility] and today was found altered, nasal [...] Normal [] Scar/Lesion/Mass Inspection of teeth/lips/gums Dentition: []False Pass Teeth []Dentures Lips/Gums: [x]Intact []Lesion Present Mucosa: [][place] []Moist []Dry Neck: External Appearance Overall Appearance: [...] 2333 08/13/24 0658 PHART -- -- 7.291* TFJ1HEW -- -- 49.4* PO2ART -- -- 84.7 NRV0PAF -- -- 23.3 V1LBULUU Bi-PAP 30% Oxygen 30% Oxygen Lactic Acid: [...] EEG with video is abnormal. Continuous diffuse zgfexnfz-dj-phgxgc diffuse slowing is seen unresponsive to stimulation. REM sleep architecture is observed. At times, fronto-centrally predominant fast activity is observed reminiscent of sleep spindles. No interictal epileptiform activity nor seizures are observed. The findings are supportive of a dwbichvv-xc-mvqchk global encephalopathy non- specific as to etiology. [...] PM EDT I have personally performed a pemb-cu-wlhi diagnostic evaluation on this patient on date of fdbjepr61/12/24. History, labs, imaging studies, and electronic medical record have been reviewed by me. This note documented by the [x]bunk house worker []TONJA reflects my history, exam, and [...] Abraham RRT - 08/14/2024 12:36 AM EDT [facility] Respiratory Care Department Progress Note [...] requiring intubation, was followed by RD and MAGNETIC TESTER, underwent MBSS 08/04 with pureed/mildly thick liquids recs, was later upgraded to regular textures/mildly thick liquids. Per paper chart at [facility] pt was ordered a Soft and Bite Sized Diet with Mildly Thick Liquids. Did not appear to be receiving ONS. Recommend pt not be without nutrition for >72 hours if medically able. --> if pt is able to advance oral diet, consider goal of ALLI, CHO Controlled and monitor renal labs and need for additional therapeutic restrictions in setting of ESRD/HD. Consider MAGNETIC TESTER evaluation for texture/consistency recommendations. Do feel that [...] data (need further clarification on PO intake UNIFORM ROOM ATTENDANT, pt weight appeared to be downtrending during [...] and bite sized/mildly thick liquids, unclear intake UNIFORM ROOM ATTENDANT, pt is currently NPO and requiring NIV) [...] Mild (BUE pitting, BLE non-pitting per flowsheets) Head Boys Golf Coach Strength: Not Performed Nutrition Assessment: pt with PMH significant for COPD (4L NC at baseline), ESRD on HD, DM1, HLD and recent admission to ICU for septic shock and subdural hematoma (07/26-08/10/24) who presented to [facility] ED on 08/12/24 in respiratory distress, pt was d/c to [facility] following recent admit and was found with altered mentation, nasal cannula was taken off and pulse ox at 80%, pt brought to [facility] ED for assessment, in the ED [...] time, of note pt was followed by MAGNETIC TESTER during recent admit- she was on altered consistency diet, underwent MBSS on 08/04 with pureed/mildly thick liquids recs, was later upgraded to regular textures/mildly thick liquids on 08/09 prior to d/c, at time of assessment pt is sleeping soundly in bed, NIV in place and pt on cEEG, per paper chart at [facility] ptwas receiving a Soft and [...] On: Kcal/kg Weight Used for Energy Requirements: [place] Weight for Energy Calculation (kg): 59.1 kg Total Energy Requirements (kcals/day): 1655-1891kcals/day Weight Used for Protein Requirements: [place] Weight in Kg Used for Protein Requirements: [...] admit --> 07/28/24: 134# bedscale, 08/07/24:126# bedscale) [place] Body Weight (lbs) (Calculated): 130 lbs [place] Body Weight (Kg) (Calculated): 59 kg % [place] Body Weight (Calculated): 104.6 % BMI (kg/m2) [...] RD Contact: available via EPIC chat or *[phone] * Janell Booker MD - 08/13/2024 6:23 AM EDT ICU Progress Note Name: Sandy Deng : 1960(63 y.o.) Date: 08/13/24 Team: MICU Attending: Dr. Tyler Subjective: Hospital Summary: Sandy Dneg is a 63-year-old female with past medical [...] Normal [] Scar/Lesion/Mass Inspection of teeth/lips/gums Dentition: []False Pass Teeth []Dentures Lips/Gums: [x]Intact []Lesion Present Mucosa: [][place] []Moist []Dry Neck: External Appearance Overall Appearance: [...] 1604 08/12/24233208/13/24 0658 PHART -- -- 7.291* JSJ1IKT -- -- 49.4* PO2ART -- -- 84.7 FWD6QLM -- -- 23.3 [id number] Bi-PAP 30% Oxygen 30% Oxygen Lactic Acid: [...] EEG with video is abnormal. Continuous diffuse keylicro-qz-weiphk diffuse slowing is seen unresponsive to stimulation. REM sleep architecture is observed. At times, fronto-centrally predominant fast activity is observed reminiscent of sleep spindles. No interictal epileptiform activity nor seizures are observed. The findings are supportive of a wwpthfhs-ap-pqkzdi global encephalopathy non- specific as to etiology. [...] PM EDT I have personally performed a sijh-ux-btrk diagnostic evaluation on this patient on date of nebntsm13/11/24. History, labs, imaging studies, and electronic medical record have been reviewed by me. This note documented by the [x]bunk house worker []TONJA reflects my history, exam, and [...] far today, excludingprocedures. documented in this [facility]-21-2024 Nurse Note* Liliana Juanis Jefferson - 08/23/2024 3:02 PM EDT Patient Name: Sandy Deng Patient : 1960 Acct: [id number] Date of Admission: 08/12/2024 Room[facility] A Code Status: Full Code Allergies: No [...] - Before each treatment: Dialysis Machine No.: [id number] RO Machine Number: [id number] Dialyzer Lot No.: [id number] Tubing Lot Number: [id number] All Connections Secure: Yes Venous Parameters Set: Yes Arterial Parameters Set: Yes NS Bag: Yes Saline Line Double Clamped: Yes Dialyzer: Nipro Prime Volume (mL): 200 mL RO Machine Number: [id number] RO Machine Log Sheet Completed: Yes Machine Alarm Self Test: Completed, Passed (1865) (08/23/24 1323) Air Foam Detector: Tested, Proper Function, pH Reading Extracorporeal Circuit Tested for Integrity: Yes Machine Conductivity: 13.6 Manual Conductivity: 13.6 Manual Ph: 7 Bleach Test (Neg): Yes Bath Temperature: 36 C (96.8 F) Conductivity Meter Serial #: [id number] Machine Functioning Alarm Free? Yes Dialysis Bath: K+ (Potassium): 4 Ca+ (Calcium): 2.5 Na+ (Sodium): 137 HCO3 (Bicarb): 35 Bicarbonate Concentrate Lot No.: [id number] Acid Concentrate Lot No.: [id number] Chlorine Testing - Before each treatment and [...] Name: Sandy Deng Patient : 1960 Acct: [id number] Date of Admission: 08/12/2024 Room/Bed: T3304/T3304 A [...] artery Chest pain Chronic constipation Cigarette smoker Buckeye's sign present Depressive disorder Diabetic ketoacidosis (CMS/HCC) [...] 0753 -- -- -- Tachypnea -- Clear;Diminished [place] Dry;Cool -- Soft;Rounded;Nondistended Active;Audible 08/21/24 1010 Alert (0) -- Regular -- Bi-PAP Diminished [place] Cool;Dry Fair Soft Active 08/21/24 1320 Alert (0) x3 Regular -- Bi-PAP Diminished [place] Cool;Dry Fair Soft Active Labs Lab Results [...] - Before each treatment: Dialysis Machine No.: [id number] Machine Number: [id number] Dialyzer Lot No.: [id number] Tubing Lot Number: [id number] All Connections Secure: Yes Venous Parameters Set: Yes Arterial Parameters Set: Yes NS Bag: Yes Saline Line Double Clamped: Yes Dialyzer: Nipro Prime Volume (mL): 200 mL RO Machine Number: [id number] RO Machine Log Sheet Completed: Yes Machine [...] HCO3 (Bicarb): 35 Bicarbonate Concentrate Lot No.: [id number] Acid Concentrate Lot No.: [id number] Chlorine Testing - Before each treatment and [...] Name: Sandy Deng Patient : 1960 Acct: [id number] Date of Admission: 08/12/2024 [facility] A Code Status: Full Code Allergies: No [...] artery Chest pain Chronic constipation Cigarette smoker Buckeye's sign present Depressive disorder Diabetic ketoacidosis (CMS/HCC) [...] - Before each treatment: Dialysis Machine No.: [id number] RO Machine Number: [id number] Dialyzer Lot No.: [id number] Tubing Lot Number: [id number] All Connections Secure: Yes Venous Parameters Set: Yes Arterial Parameters Set: Yes NS Bag: Yes Saline Line Double Clamped: Yes Dialyzer: Nipro Prime Volume (mL): 250 mL RO Machine Number: [id number] RO Machine Log Sheet Completed: Yes Machine Alarm Self Test: Completed, Passed (08/18/24799) Air Foam Detector: Tested, Proper Function, pH Reading Extracorporeal Circuit Tested for Integrity: Yes Machine Conductivity: 13.9 Manual Conductivity: 14 Manual Ph: 7.2 Bleach Test (Neg): Yes Bath Temperature: 36 C (96.8 F) Conductivity Meter Serial #: [id number] Machine Functioning Alarm Free? Yes Dialysis Bath: K+ (Potassium): 3 Ca+ (Calcium): 2.5 Na+ (Sodium): 137 HCO3 (Bicarb): 35 Bicarbonate Concentrate Lot No.: [id number] Acid Concentrate Lot No.: [id number] Chlorine Testing - Before each treatment and [...] Name: Sandy Deng Patient : 1960 Acct: [id number] Date of Admission: 08/12/2024 [facility] A Code Status: Full Code Allergies: No [...] - Before each treatment: Dialysis Machine No.: [id number] RO Machine Number: [id number] Dialyzer Lot No.: [id number] Tubing Lot Number: [id number] All Connections Secure: Yes Venous Parameters Set: Yes Arterial Parameters Set: Yes NS Bag: Yes Saline Line Double Clamped: Yes Dialyzer: Nipro Prime Volume (mL): 200 mL RO Machine Number: [id number] RO Machine Log Sheet Completed: Yes Machine Alarm Self Test: Completed, Passed (1340) (08/16/241340) Air Foam Detector: Tested, Proper Function Extracorporeal Circuit Tested for Integrity: Yes Machine Conductivity: 13.4 Manual Conductivity: 13.8 Manual Ph: 7.4 Bleach Test (Neg): Yes Bath Temperature: 36 C (96.8 F) Conductivity Meter Serial #: [id number] Machine Functioning Alarm Free? Yes Dialysis Bath: K+ (Potassium): 3 Ca+ (Calcium): 2.5 Na+ (Sodium): 137 HCO3 (Bicarb): 35 Bicarbonate Concentrate Lot No.: [id number] Acid Concentrate Lot No.: [id number] Chlorine Testing - Before each treatment and [...] Name: Sandy Deng Patient : 1960 Acct: [id number] Date of Admission: 08/12/2024 Room/Bed: T3-321/T3-321 A [...] - Before each treatment: Dialysis Machine No.: [id number] Machine Number: [id number] All Connections Secure: Yes Venous Parameters Set: Yes Arterial Parameters Set: Yes NS Bag: Yes Saline Line Double Clamped: Yes Dialyzer: Nipro Prime Volume (mL): 200 mL RO Machine Number: [id number] RO Machine Log Sheet Completed: Yes Machine Alarm Self Test: Completed, Passed (08/13/24 1520) Air Foam Detector: Tested, Proper Function, pH Reading Extracorporeal Circuit Tested for Integrity: Yes Machine Conductivity: 13.8 Manual Conductivity: 13.8 Manual Ph: 7 Bleach Test (Neg): Yes Bath Temperature: 36 C (96.8 F) Conductivity Meter Serial #: [id number] Machine Functioning Alarm Free? Yes Dialysis Bath: [...] chat Response: No new orders Notification Time: 7696 Reason for Communication: Critical lab value (1/2 [...] team narrator completed. documented in this [facility]-21-2024 Consult note* Eladio Lebron MD - 08/23/2024 [...] tablet by mouth 2 times daily. Cholecalciferol (COX MONETT Vitamin D3) 25 MCG (1000 UT) chewable tablet Chew. clopidogrel (Plavix) 75 MG tablet Take 1 tablet by mouth daily. Continuous Glucose Sensor (Dexcom G6 Sensor) [facility] Continuous Glucose Transmitter (Dexcom G6 transmitter) [facility] estradiol (Estrace) 1 MG tablet Take 1 [...] 10 days. Insulin Disposable Pump (Omnipod 5 XoaI5V6 Intro Gen 5) kit Insulin Disposable Pump (Omnipod 5 NijZ2D3 Pods Gen 5) misc insulin glargine (Lantus) [...] contact the on-call urology resident in the director hydrogen storage engineering for void trial instructions. Would recommend doing void trial prior to the day of anticipated discharge if able. Follow up with urology for continued outpatient management Please page the director prison urology resident with any questions or concerns [...] mouth 2 times daily. Historical Provider, Cholecalciferol (COX MONETT Vitamin D3) 25 MCG (1000 UT) chewable tablet Chew. Historical Provider, clopidogrel (Plavix) 75 MG tablet Take 1 tablet by mouth daily. Historical Provider, Continuous Glucose Sensor (Dexcom G6 Sensor) [facility] 07/22/24 Historical Provider, Continuous Glucose Transmitter (Dexcom G6 transmitter) [facility] 07/25/24 Historical Provider, estradiol (Estrace) 1 MG [...] Espana DO Insulin Disposable Pump (Omnipod 5 HunY3I4 Intro Gen 5) kit 12/03/23 Historical Provider, Insulin Disposable Pump (Omnipod 5 YozT0P0 Pods Gen 5) misc 07/15/24 Historical Provider, [...] Normal [] Scar/Lesion/Mass Inspection of teeth/lips/gums Dentition: [x]False Pass Teeth []Dentures Lips/Gums: [x]Intact []Lesion Present Mucosa: [][place] []Moist [x]Dry Neck: External Appearance Overall Appearance: [...] 08/20/24 1024 08/20/24 1250 PHART 7.209* 7.244* ZWN0WJY 71.5* 68.4* PO2ART 63.4* 36.2* TDX7XNA 27.9* 28.9* B3TVEVQU Nasal cannula Bi-PAP Labs in Last 3 [...] PM EDT I have personally performed a bhuz-dz-fkfu diagnostic evaluation on this patient on date of unjcdst06/18/24. History, labs, imaging studies, and electronic medical record have been reviewed by me. This note documented by the [x]Critical Care Fellow []bunk house worker []TONJA reflects my history, exam, and [...] from the original note were not included. [facility] - Infectious Diseases Attending Consult Note [...] found altered, hypoxic, lethargic. Transferred back to [facility], and required NIV initially. Today she [...] edema with small pleural effusions. Antimicrobials,Start/End Dates: Qiyxlst88/10- Impression: 63 F, admitted with: Respiratory distress- [...] days Referring physician: Elizabeth Tyler MD Outpatient Warehouse Picker: Dr. Christy Huerta Reason for Consult UMA [...] hypercapneic respiratory failure. #Nonoliguric UMA, dialysis dependent: PLANT INSPECTOR dependent since 07/26 last admit. Baseline Cr had been 2.4-2.8, last (04/26) Cr 2.4 eGFR 20, 24 hr hrcipzw=9414 mg. -Suspected ATN in setting of infection/HD [...] call with any questions. Saroj Gaffney MD [facility] ([facility]) Office phone: [phone] Office fax: [phone] Pager: [phone] 08/13/24 History of Present Illness Sandy Deng [...] with hypercapneic respiratory failure. Recently discharged to [facility] from [facility] after admission for sepsis/shock as above. [...] from the original note were not included. [facility] CONSULT Note Sandy Deng AGE: [...] tablet by mouth 2 times daily. Cholecalciferol (COX MONETT Vitamin D3) 25 MCG (1000 UT) chewable [...] to follow Recommend to follow up at [facility] after hospital [...] Name: Sandy Deng Patient : 1960 Acct: [id number] Date of Admission: 08/12/2024 Room[facility]Bed: [facility] A PCP: Bird Lujan Stroke team; Floor [...] mouth 2 times daily. Historical Provider, Cholecalciferol (COX MONETT Vitamin D3) 25 MCG (1000 UT) chewable tablet Chew. Historical Provider, clopidogrel (Plavix) 75 MG tablet Take 1 tablet by mouth daily. Historical Provider, Continuous Glucose Sensor (Dexcom G6 Sensor) [facility] 07/22/24 Historical Provider, Continuous Glucose Transmitter (Dexcom G6 transmitter) [facility] 07/25/24 Historical Provider, estradiol (Estrace) 1 MG [...] Espana DO Insulin Disposable Pump (Omnipod 5 YkhZ6U6 Intro Gen 5) kit 12/03/23 Historical Provider, Insulin Disposable Pump (Omnipod 5 WzlC6M4 Pods Gen 5) [facility] 07/15/24 Historical Provider, insulin glargine (Lantus) 100 [...] file, no family able to provide information \\ ROS; :Unable to obtain review of systems [...] Nerves: -II Visual acuity: normal -II Visual urssell: normal -III Pupils (~ 3 mm OD, [...] 445 ms QTC Interval 450 ms P [place] 76 degrees QRS [place] -24 degrees T Wave [place] 51 degrees RI Interval 162 ms Basic metabolic panel Collection [...] PM Result Value Ref Range PRODUCT CODE [id number] Unit Number [id number] Unit ABO O Unit RH POS Crossmatch interpretation COMP Dispense Status Transfused Blood Expiration Date [id number] Product Blood Type 5100 Unit Volume 300 [...] thrombolytic stroke workup documented in this [facility]-21-[facility] Hospital Discharge instructions* Discharge Instr - CHELO* Sindy Garrison RN - 08/23/2024 1:25 PM EDT Images from the original note were not included. Continuity of Care Form Patient Name: Sandy Deng : 1960 Admit date: 08/12/2024 Discharge date: 08/24/24 Code Status Order: Full Code Advance Directives: N Admitting Physician: Kemar Adames DO PCP: Bird Lujan Discharging Nurse: sindy soriano Discharging Hospital Unit/Room#: B7-329/W0-210 A Discharging Unit Emergency Contact: Extended Emergency Contact Information Primary Emergency Contact: BinBobbi Mobile Relation: Daughter Preferred language: Yemeni Customer Orders Clerk needed? No Secondary Emergency Contact: Jose Deng Mobile Relation: Spouse Preferred language: Yemeni Customer Orders Clerk needed? No Past Surgical History: Past Surgical [...] assistance Toileting Minimal assistance Feeding Minimal assistance Farm Equipment Engine Mechanic Minimal assistance Med Delivery yes Wound Care [...] 08/18/24 Pressure Injury Coccyx (Active) Site Assessment Painful;Pale;[place] 08/23/24799 Rosana-Wound Assessment Blanchable erythema;Fragile;Intact 08/23/24799 Wound [...] Rehab Therapies: physical therapy, occupational therapy, social secretary, and recreation therapy Weight Bearing Status/Restrictions: no restriction Other Medical Equipment (for information only, NOT a DME order): none Other Treatments: n/a Patient's personal belongings (please select all that are sent with patient): none RN SIGNATURE: MANAGEMENT/SOCIAL WORK SECTION Inpatient Status Date: 08/12/2024 Discharging to Facility/ Agency Name: [facility] Address: [address] [place] [address] Fax: Dialysis Facility (if applicable) Name: Address: Dialysis Schedule: Phone: Fax: Home Worker/Manufacturing Area Manager signature: ICIAN SECTION Name: Sandy Deng Prognosis: {Rehab Prognosis:12787} Condition at Discharge: {Patient Condition:74150} Rehab Potential (if transferring to Rehab): {Rehab Prognosis:55552} Recommended Labs or Other Treatments After Discharge: The individual is being admitted to a nursing facility directly from an [facility] or a unit of a [facility] that is not operated by or licensed by [facility] under section 5119.14 or 5160-3-15.1 5 The individual requires the level of services provided by a nursing facility for the condition for which he or she was treated in the hospital and, Physician Certification: I certify the above information and transfer of Sandy Deng is necessary for the continuing treatment of the diagnosis listed and that she requires {CHELO Level of Care:56636} for {greater less than:11853} 30 days. Update Admission H&P: {CHELO Changes in H&P:43945} PHYSICIAN SIGNATURE: {E-signature:69467} documented in this [facility] per [facility] request. Await review and response regarding ability to accept. [facility] notified. [facility]10-11-2024 [facility]10-11-2024 Procedure note* Armen Diaz MD PhD - 08/13/2024 3:02 AM EDTAssociated Order(s): EEG CONTINUOUS MONITORING Images from the original note were not included. [facility] [address] [place] [id number] CONTINUOUS LONG-TERM VIDEO EEG MONITORING REPORT Patient Name: Sandy Deng : 1960 Date of Study: 08/13/2024 Duration Recorded: 12-26 hrs EEG#: [id number] COOK RESTAURANT: Adma Hudson PROVIDER REQUESTING STUDY: May Wang DO [...] 20 mg 20 mg Oral Nightly Ana Rosaoksta Carlin DO busPIRone (Buspar) tablet 7.5 mg [...] study with video was carried out at [facility]. Scalp electrodeswere positioned in person by an cardiac cath lab technologist, following patient education, according to the 10-20 International system of electrode placement and maintained for integrity and quality of the recording. . EEG data with video was recorded continuously and digitally stored. The cardiac cath lab technologist reviewed all automated detections and manual [...] diffuse delta-theta range (1.5-7 Hz, 20-35 uV) bfhkfisgp-hi-edlepbaniaybsu slow wave activity was seen unresponsive to [...] EEG with video is abnormal. Continuous diffuse wpqqwpzn-vo-vsanwl diffuse slowing is seen unresponsive to stimulation. REM sleep architecture is observed. At times, fronto-centrally predominant fast activity is observed reminiscent of sleep spindles. No interictal epileptiform activity nor seizures are observed. The findings are supportive of a axildnad-ck-xnjenf global encephalopathy non- specific as to etiology. Will continue video-EEG monitoring to evaluate the evolution of this encephalopathy. Jasmeet Arevalo, PhD Clinical Neurophysiologist Armen Diaz MD PhD Epilepsy Attending documented in this [facility]10-10-2024 NoteSoft restraints removed at this time. Dr. Hoang made aware. Clari Bronson RN 08/12/24 1634[facility]10-10-2024 Emergency department Note* Clari Bronson RN [...] 08/12/2024 11:35 AM EDT Emergency Department Encounter [facility] EMERGENCY DEPT Patient: Sandy Deng : [...] 08/12/2024 11:35 AM EDT Emergency Department Encounter [facility] Emergency Department Patient: Sandy Deng : [...] pneumonia, andrespiratory failure. Patient was discharged to [facility] 2 days ago, and today [...] daily. Continuous Glucose Sensor (Dexcom G6 Sensor) [facility] Continuous Glucose Transmitter (Dexcom G6 transmitter) [facility] estradiol (Estrace) 1 MG tablet Take 1 [...] 10 days. Insulin Disposable Pump (Omnipod 5 IrkT1B3 Intro Gen 5) kit Insulin Disposable Pump (Omnipod 5 CabR8B9 Pods Gen 5) misc insulin glargine (Lantus) [...] Psychiatric: Mood and Affect: Mood normal. Screenings: Steele Coma Scale Best Eye Response: To pain [...] Motor - Left Arm: Some Effort Against [place] 5B. Motor - Right Arm: Some Effort Against [place] 6A. Motor - Left Leg: Some Effort Against [place] 6B. Motor - Right Leg: Some Effort Against [place] 7. Limb Ataxia: Absent 8. Sensory Loss: [...] Abnormal Glucose 259 (*) Narrative: Performed by: [facility], [address] [place] [address] CLIA ID: [id number] POCT GLUCOSE METER UNSOLICITED RESULTS - Abnormal Glucose 252 (*) Narrative: Performed by: [facility], [address] [place] [address] CLIA ID: [id number] POCT GLUCOSE METER UNSOLICITED RESULTS - Abnormal Glucose 253 (*) Narrative: Performed by: [facility], [address] [place] [address] CLIA ID: [id number] BLOOD CULTURE - Normal Blood Culture Blood [...] ACID WITH REFLEX PREPARE RBC PRODUCT CODE [id number] Unit Number [id number] Unit ABO O Unit RH POS Crossmatch interpretation COMP Dispense Status Transfused Blood Expiration Date Product Blood Type 5100 Unit Volume 300 PREPARE RBC PRODUCT CODE [id number] Unit Number [id number] Unit ABO O Unit RH POS Crossmatch [...] Severe centrilobular emphysema. CRITICAL TEST COMMUNICATION: Dr. Nñuez was notified by telephone today at 11:01pm. [...] Department Physician in the absence of a inhalation therapy teacher. Please see Epiphany for interpretation of [...] 40 mg (40 mg IntraVENous Given 08/13/24 2747) albuterol 108 (90 Base) MCG/ACT inhaler 2 puff ( Inhalation Held by provider 08/12/24 3268) aspirin EC tablet 81 mg ( Oral [...] 11:35 AM EDT Emergency Department Encounter Location: [facility] EMERGENCY DEPT Patient: Sandy Deng : [...] and respiratory failure. She was discharged to [facility] 2 days ago after beingadmitted [...] 445 ms QTC Interval 450 ms P [place] 76 degrees QRS [place] -24 degrees T Wave [place] 51 degrees RI Interval 162 ms XR chest 1 view [...] status and respiratoryfailure. She was discharged to [facility] 2 days ago after being [...] 5:46 PM EDT documented in this [facility]-10-[facility]24 History and physical note* Ana Rosa CarlinDO [...] been recently discharged 2 days ago to [facility], and today was found altered, [...] mouth 2 times daily. Historical Provider, Cholecalciferol (COX MONETT Vitamin D3) 25 MCG (1000 UT) chewable tablet Chew. Historical Provider, clopidogrel (Plavix) 75 MG tablet Take 1 tablet by mouth daily. Historical Provider, Continuous Glucose Sensor (DexAlgae International Group G6 Sensor) [facility] 07/22/24 Historical Provider, Continuous Glucose Transmitter (Dexcom G6 transmitter) [facility] 07/25/24 Historical Provider, estradiol (Estrace) 1 MG [...] Espana DO Insulin Disposable Pump (Omnipod 5 TzfB5E5 Intro Gen 5) kit 12/03/23 Historical Provider, Insulin Disposable Pump (Omnipod 5 LdnG9F0 Pods Gen 5) [facility] 07/15/24 Historical Provider, insulin glargine (Lantus) 100 [...] Normal [] Scar/Lesion/Mass Inspection of teeth/lips/gums Dentition: []False Pass Teeth []Dentures Lips/Gums: []Intact []Lesion Present Mucosa: [][place] []Moist []Dry Neck: External Appearance Overall Appearance: [...] ABGs: Recent Labs 08/12/24 1337 08/12/24 1604 [id number] Nasal cannula Bi-PAP Lactic Acid: Recent Labs [...] PM EDT I have personally performed a urjb-fx-xnvm diagnostic evaluation on this patient on date of /10/24. History, labs, imaging studies, and electronic medical record have been reviewed by me. This note documented by the [x]bunk house worker []TONJA reflects my history, exam, and [...] far today, excludingprocedures. documented in this [facility]10-10-2024 [facility] 08-10-2024 Nurse Note* Jim Rodriguez RN - 08/10/2024 2:13 PM EDT Report called to nurse Syed at [facility]. This RN verified with Dr. Espana that pt is leavingwith johnson catheter. * Rene Euceda - 08/10/2024 9:05 AM EDT Patient Name: Sandy Deng Patient : 1960 Acct: [id number] Date of Admission: 07/26/2024 Room[facility]: [facility] B Code Status: Full Code Allergies: No [...] - Before each treatment: Dialysis Machine No.: [id number] Machine Number: [id number] Dialyzer Lot No.: [id number] Tubing Lot Number: [id number] All Connections Secure: Yes Venous Parameters Set: Yes Arterial Parameters Set: Yes NS Bag: Yes Saline Line Double Clamped: Yes Dialyzer: Nipro Prime Volume (mL): 200 mL RO Machine Number: [id number] RO Machine Log Sheet Completed: Yes Machine Alarm Self Test: Completed, Passed (08/10/24 0945) Air Foam Detector: Tested, Proper Function, pH Reading Extracorporeal Circuit Tested for Integrity: Yes Machine Conductivity: 13.7 Manual Conductivity: 13.6 Machine Ph: 7 Manual Ph: 7.2 Bleach Test (Neg): Yes Bath Temperature: 36 C (96.8 F) Conductivity Meter Serial #: [id number] Machine Functioning Alarm Free? Yes Dialysis Bath: K+ (Potassium): 2 Ca+ (Calcium): 2.5 Na+ (Sodium): 136 HCO3 (Bicarb): 36 Bicarbonate Concentrate Lot No.: [id number] Acid Concentrate Lot No.: [id number] Chlorine Testing - Before each treatment and [...] 600 Yes pt resting, lines secure, removed 26236 08/10/24 1115 350 mL/min 970 ml/hr -160 [...] to Med Team resident and [facility] 0639- 1mg IM glucagon given per resident. 0647- glucose confirmation came back at 216. 0654- D5 infusion discontinued at this time. * Yenny Keller RN - 08/07/2024 8:51 PM EDT Patient Name: Sandy Deng Patient : 1960 Acct: [id number] Date of Admission: 07/26/2024 Room/Bed: [facility] B Code Status: Full Code Allergies: No [...] - Before each treatment: Dialysis Machine No.: [id number] Machine Number: [id number] Dialyzer Lot No.: [id number] Tubing Lot Number: [id number] All Connections Secure: Yes Venous Parameters Set: Yes Arterial Parameters Set: Yes NS Bag: Yes Saline Line Double Clamped: Yes Dialyzer: Nipro Prime Volume (mL): 200 mL RO Machine Number: [id number] RO Machine Log Sheet Completed: Yes Machine Alarm Self Test: Completed, Passed (8943) (08/07/24 1630) Air Foam Detector: pH Reading, Proper Function, Tested Extracorporeal Circuit Tested for Integrity: Yes Machine Conductivity: 13.6 Manual Conductivity: 13.6 Machine Ph: 7 Manual Ph: 7 Bleach Test (Neg): Yes Bath Temperature: 36 C (96.8 F) Conductivity Meter Serial #: [id number] Machine Functioning Alarm Free? Yes Dialysis Bath: K+ (Potassium): 2 Ca+ (Calcium): 2.5 Na+ (Sodium): 136 HCO3 (Bicarb): 36 Bicarbonate Concentrate Lot No.: [id number] Acid Concentrate Lot No.: [id number] Chlorine Testing - Before each treatment and [...] Name: Sandy Deng Patient : 1960 Acct: [id number] Date of Admission: 07/26/2024 Room/Bed: T2-213/T2-213 A [...] Alert (0) X3 Regular Nasal cannula Diminished [place] Warm;Dry Soft;Flat Present Other (Comment) Other (Comment) [...] - Before each treatment: Dialysis Machine No.: [id number] RO Machine Number: [id number] Dialyzer Lot No.: [id number] Tubing Lot Number: [id number] All Connections Secure: Yes Venous Parameters Set: Yes Arterial Parameters Set: Yes NS Bag: Yes Saline Line Double Clamped: Yes Dialyzer: Nipro Prime Volume (mL): 200 mL RO Machine Number: [id number] RO Machine Log Sheet Completed: Yes Machine Alarm Self Test: Completed, Passed (2103) (08/05/242103) Air Foam Detector: Tested, Proper Function Extracorporeal Circuit Tested for Integrity: Yes Machine Conductivity: 13.5 Manual Conductivity: 13.4 Manual Ph: 7.8 Bleach Test (Neg): Yes Bath Temperature: 36 C (96.8 F) Conductivity Meter Serial #: [id number] Machine Functioning Alarm Free? Yes Dialysis Bath: K+ (Potassium): 2 Ca+ (Calcium): 2.5 Na+ (Sodium): 136 HCO3 (Bicarb): 36 Bicarbonate Concentrate Lot No.: [id number] Acid Concentrate Lot No.: [id number] Chlorine Testing - Before each treatment and [...] blanchable erythema. Prevention Measures in place, including: [place] sheet with pillows/wedges, Foam heel protectors (changed), [...] Name: Sandy Deng Patient : 1960 Acct: [id number] Date of Admission: 07/26/2024 Room/Bed: T2-213/T2-213 A [...] RN (First Initial, Last Name, Title): Familia Sacuedo RN Incapacitated Nurse Education Completed: Not Applicable [...] - Before each treatment: Dialysis Machine No.: [id number] RO Machine Number: [id number] All Connections Secure: Yes Venous Parameters Set: Yes Arterial Parameters Set: Yes NS Bag: Yes Saline Line Double Clamped: Yes Dialyzer: Nipro Prime Volume (mL): 200 mL RO Machine Number: [id number] RO Machine Log Sheet Completed: Yes Machine Alarm Self Test: Completed, Passed (08/03/24 1051) Air Foam Detector: Tested, Proper Function, pH Reading Extracorporeal Circuit Tested for Integrity: Yes Machine Conductivity: 13.7 Manual Conductivity: 13.6 Manual Ph: 7 Bleach Test (Neg): Yes Bath Temperature: 36 C (96.8 F) Conductivity Meter Serial #: [id number] Machine Functioning Alarm Free? Yes Dialysis Bath: [...] mmHg 140 mmHg 80 600 Yes case management specialist RN at bedside to speak jacobo pt [...] and report given to Primary RN at 4804. Primary RN (First Initial, Last Name, Title): [...] 07/29/2024 4:12 PM EDT [facility], Dr. Amezcua in to speak with [...] line attached to red port. * Omi Ktaz RN - 07/29/2024 8:03 AM EDT CRRT [...] paused d/t access line clotting at approximately 0938-5067. Trouble shooting attempted. Cath flow ordered and given at 0646. documented in this [facility]10-08-2024 History of Present illness Narrative* Saroj Gaffney MD - 08/10/2024 12:17 PM EDT Images from the original note were not included. Nephrology Progress Note Patient: Sandy Deng Room number: W3-339/W3-339 B Date of Admit: 07/26/2024 LOS: 15 days Admitting physician: Ino Conte MD Referring physician: Fly De La Garza DO Outpatient Warehouse Picker: Christy Huerta DO Assessment/Plan: 63 year old [...] last (04/26) Cr 2.4 eGFR 20, 24 qsioqxmaw=1781 mg. -Suspected ATN in setting of infection/HD [...] IV lasix Anemia: Hgb 7.8 Access: [facility] TD 07/29 Recommendations: -HD today, continue TTS for now -Can continue lasix on HD off days to assist volume removal -Continue strict I/Os and daily renal function panel to monitor for recovery -Await repeat complements Thank you for this consult, we will continue to follow. Please call or page if any questions [facility] Pager: [phone] Office: [phone]. Office Subjective: Interval history/events: Seen and evaluated [...] IRON, TIBC, FERRITIN No results found for: [id number], FOLATE Recent Labs 08/08/24 0017 08/09/24 0035 [...] PHOS 4.5 08/10/2024 No components found for: AGKI32V Diagnostic Studies: CXR 08/08 Findings: Right IJ [...] and pathophysiology of processes involved. * Khai Epsana, DO - 08/10/2024 7:44 AM EDT Med Team Progress Note Sandy Deng : 1960(63 y.o.) Date: August 10, 2024 Med Team: Frank Attending: Dr. De La Garza Chief Complaint: sepsis Subjective: Sandy Deng is a 63 yo F with a PMH of COPD, diabetic neuropathy, hx of NSTEMI, stage 4 CKD (on HD TTS), and Type 1 diabetes. Initially patient presented to [facility] on 07/23 with acute respiratory distress [...] the nightstand. Pt was then transferred to [facility]. Initial infectious workup returned with CTX-M [...] (04/26) Cr 2.4 eGFR 20, 24 hr iwqowld=7082 mg. - On admit, (07/26) Cr 4.56, [...] evaluated at bedside; recommend continuation of acute MAGNETIC TESTER diet - Monitor adequacy of PO for [...] and C4 complement Disposition: Approved 08/09-08/16 to [facility]. Transport arranged for today at 2 pm [...] [facility] today. 7AM-5PM: contact resident on [facility] Med A (find by hovering over attending's name on left side of patient's chart) 5PM-7AM: contact [address] - 08/09/2024 4:36 PM EDT Nutrition Assessment Type and Reason for Visit: Reassess Nutrition Recommendations/Plan: Continue current diet per MAGNETIC TESTER. Per MNT, will discontinue Ensure d/t thickened [...] mass loss Fluid Accumulation: Mild Extremities, Generalized Head Boys Golf Coach Strength: Not Performed Nutrition Assessment: Pt PMH of COPD, diabetic neuropathy, hx of NSTEMI, stage 4 CKD (on HD TTS), and Type 1 diabetes. Initially patient presented to [facility] on 07/23 with acute respiratory distress [...] the nightstand. Pt was then transferred to [facility]. Initial infectious workup returned with CTX-M Pseudomonas and S aureus identified on pneumonia PCR. Patient went into septic shock, requiring pressors, now resolved. Patient no longer on antibiotics. Patient saturating well on 3-4L NC. Home O2 requirement of 3L. Pt first advanced to PO diet 08/01; advanced to Regular/nectar thick per MAGNETIC TESTER recs today. Pt was sleepingat time of RD assessment and did not wake to name call. No trays at bedside to assess. Estimated Daily Nutrient Needs: Energy Requirements Based On: Kcal/kg Weight Used for Energy Requirements: [place] Weight for Energy Calculation (kg): 59 kg Total Energy Requirements (kcals/day): 25-30 kcals/kg = 9583-2860 kcals/day Weight Used for Protein Requirements: [place] Weight in Kg Used for Protein Requirements: [...] Nutrition Therapies: Adult diet Regular; Mildly Thick ([place]) Current Oral Intake Average Meal Intake: 76-100% (per flowsheet) Average Supplements Intake: None Ordered Anthropometric Measures: Height: 167.6 cm (5' 5.98) Current Body Weight: 57.2 kg (126 lb) (08/07) Weight Source: Bed Scale Admission Body Weight: 48 kg (105 lb 13.1 oz) [place] Body Weight (lbs) (Calculated): 130 lbs [place] Body Weight (Kg) (Calculated): 59 kg % [place] Body Weight (Calculated): 105.1 % BMI (kg/m2) [...] to determine Sada Fernandez RD, LD Contact: [phone] * Saroj Gaffney MD - 08/09/2024 1:34 PM EDT Images from the original note were not included. Nephrology Progress Note Patient: Sandy Deng Room number: W3-339/W3-339 B Date of Admit: 07/26/2024 LOS: 14 days Admitting physician: Ino Conte MD Referring physician: Fly De La Garza DO Outpatient Warehouse Picker: Christy Huerta DO Assessment/Plan: 63 year old [...] last (04/26) Cr 2.4 eGFR , 24 uyqlayaxo=7565 mg. -Suspected ATN in setting of infection/HD [...] Please call or page if any questions [facility] Pager: [phone] Office: [phone]. Office Subjective: Interval history/events: Seen at bedside [...] IRON, TIBC, FERRITIN No results found for: [id number], FOLATE Recent Labs 08/07/2410508/08/241608/09/243408/09/24612 NA 134* 134* [...] PHOS 4.1 08/09/2024 No components found for: [id number] Diagnostic Studies: CXR 08/08 Findings: Right IJ [...] not included. Speech-Language Pathology SPEECH LANGUAGE PATHOLOGY [facility] Dysphagia Treatment Note Patient Name: Sandy Deng Evaluation Date: 08/09/2024 Date of : 1960 Admission Date: 07/26/2024 4:17 PM Age: 63 y.o. Room[facility]Bed: [facility] Subjective Patient was able to awaken but appeared somnolent. Family and RN reported patient with decreased POintake with current diet restrictions. Current Diet: Dietary Orders (From admission, onward) Start Ordered 08/04/24 1610 Adult diet Dysphagia - Pureed; Mildly Thick ([place]) Diet effective now Comments: Medications crushed and placed in pureed foods. Question Answer Comment Diet type Dysphagia - Pureed Fluid consistency Mildly Thick ([place]) 08/04/24 1611 08/03/24 1639 Supplement:PM Snack, HS [...] for dietadvancement. Plan & Recommendations Continue acute MAGNETIC TESTER therapy per initial plan of care and [...] Start: 08/04/24 Expected End: 08/18/24 Therapy Time MAGNETIC TESTER Individual Minutes Time In: 1125 Time Out: 1135 Minutes: 10 Shanti Bianchi MA, CCC/MAGNETIC TESTER * Amy Dorado, UNIFORM ROOM ATTENDANT - 08/09/2024 8:47 AM EDT Images from the original note were not included. PHYSICAL THERAPY [facility] Treatment Note Name/MRN: Sandy Deng ([id number]) Date of : 1960 Age: 63 y.o. Room/Bed: [facility] Discharge Recommendation: IP Rehab Equipment Needed: [...] SBA for short periods. Standing with this UNIFORM ROOM ATTENDANT directly in front of pt, postural sway, BLE weakness and instability, min/mod assist for balance. Exercises Exercises Quad Sets: Adebayo x10 reps Heelslides: Adeabyo x10 reps Gluteal Sets: Adebayo x10 reps [...] Minutes: 26 Minutes (tp; fa) Amy Dorado, UNIFORM ROOM ATTENDANT * Khai Espana, DO - 08/09/2024 8:03 [...] Type 1 diabetes. Initially patient presented to [facility] on 07/23 with acute respiratory distress [...] the nightstand. Pt was then transferred to [facility]. Initial infectious workup returned with CTX-M [...] (04/26) Cr 2.4 eGFR 20, 24 hr evomrad=3011 mg. - On admit, (07/26) Cr 4.56, [...] evaluated at bedside; recommend continuation of acute MAGNETIC TESTER therapy - Diet order of Regular solids [...] monitor for now. 7AM-5PM: contact resident on [facility] Med A (find by hovering over attending's name on left side of patient's chart) 5PM-7AM: contact AI3 res * Jamey Muro, OT - 08/08/2024 10:44 AM EDT Images from the original note were not included. OCCUPATIONAL THERAPY [facility] Treatment Note Name/MRN: Sandy Deng ([id number]) Date of : 1960 Age: 63 y.o. [...] original note were not included. PHYSICAL THERAPY [facility] Treatment Note Name/MRN: Sandy Deng ([id number]) Date of : 1960 Age: 63 y.o. [...] Type 1 diabetes. Initially patient presented to [facility] on 07/23 with acute respiratory distress [...] the nightstand. Pt was then transferred to [facility]. Initial infectious workup returned with CTX-M [...] (04/26) Cr 2.4 eGFR 20, 24 hr pigwbxz=1892 mg. - On admit, (07/26) Cr 4.56, [...] hold off on starting ACEi/ARB due to MUA - Will continue to monitor Dysphagia, Mild - Speech therapy evaluated at bedside; recommend continuation of acute MAGNETIC TESTER therapy - Diet order on pureed solids [...] days Referring physician: Ino Conte MD Outpatient Warehouse Picker: Christy Huerta DO ASSESSMENT/PLAN: UMA on CKD 4 - Cr has been 2.4-2.8, last (04/26) Cr 2.4 eGFR 20, 24 hr wcdqtzv=5462 mg. - On admit, (07/26) Cr 4.56, [...] initial consultation. Interval history reviewed: transferred to [facility] Patient reports breathing comfortably Appetite has [...] IRON, TIBC, FERRITIN No results found for: [id number], FOLATE No results found for: COLORU, CLARITYU, [...] LABFUNG IMAGING: POCT glucose meter Performed by: [facility], [address] [place] [address] CLIA ID: [id number] Signed: Jose Carlos Medrano MD Nephrology [facility] ([facility]) Pager: [phone] Office Office * Khai Espana, DO - 08/07/2024 8:18 AM EDT Med Team Progress Note Sandy Deng : 1960(63 y.o.) Date: August 07, 2024 Med Team: Frank Attending: Dr. De La Garza Chief Complaint: Brain bleed Subjective: Sadny Deng is a 63 yo F with a PMH of COPD, diabetic neuropathy, hx of NSTEMI, stage 4 CKD (on HD TTS), and Type 1 diabetes. Initially patient presented to [facility] on 07/23 with acute respiratory distress [...] the nightstand. Pt was then transferred to [facility]. Initial infectious workup returned with CTX-M [...] (04/26) Cr 2.4 eGFR 20, 24 hr zawidri=3793 mg. - On admit, (07/26) Cr 4.56, [...] evaluated at bedside; recommend continuation of acute MAGNETIC TESTER therapy - Diet order on pureed solids [...] 5PM-7AM: contact AI3 res * Elle Israel, UNIFORM ROOM ATTENDANT - 08/06/2024 2:28 PM EDT Images from the original note were not included. PHYSICAL THERAPY [facility] Treatment Note Name/MRN: Sandy Deng ([id number]) Date of : 1960 Age: 63 y.o. [...] Timed Code Treatment Minutes: 11 Minutes (FA) UNIFORM ROOM ATTENDANT wore PPE in compliance with hospital guidelines and regulation when treating this patient. Elle Israel, UNIFORM ROOM ATTENDANT * Sandy MarieUriel Bangura, LI - 08/06/2024 11:26 AM EDT Images from the original note were not included. OCCUPATIONAL THERAPY [facility] Treatment Note Name/MRN: Sandy Deng ([id number]) Date of : 1960 Age: 63 y.o. [...] not included. Speech-Language Pathology SPEECH LANGUAGE PATHOLOGY [facility] Dysphagia Treatment Note Patient Name: Sandy Deng Evaluation Date: 08/06/2024 Date of : 1960 Admission Date: 07/26/2024 4:17 PM Age: 63 y.o. Room/Bed: [facility]323/3-323 A Subjective Patient was awake and cooperative. Current Diet: Dietary Orders (From admission, onward) Start Ordered 08/04/24 1610 Adult diet Dysphagia - Pureed; Mildly Thick ([place]) Diet effective now Comments: Medications crushed and placed in pureed foods. Question Answer Comment Diet type Dysphagia - Pureed Fluid consistency Mildly Thick ([place]) 08/04/24 1611 08/03/24 1639 Supplement:PM Snack, HS [...] wheat. Plan & Recommendations Plan: Continue acute MAGNETIC TESTER therapy per initial plan of care and [...] x 16. Plan & Recommendations Continue acute MAGNETIC TESTER therapy per initial plan of care and [...] Start: 08/04/24 Expected End: 08/18/24 Therapy Time MAGNETIC TESTER Individual Minutes Time In: 1000 Time Out: 1010 Minutes: 10 Shanti Bianchi MA, CCC/MAGNETIC TESTER * GUILLERMO Dorantes - 08/06/2024 8:02 AM EDT Images from the original note were not included. OCCUPATIONAL THERAPY [facility] Name/MRN: Sandy Deng ([id number]) Date: 08/06/2024 Hold OT this a.m.; HgB [...] Type 1 diabetes. Initially patient presented to [facility] on 07/23 with acute respiratory distress [...] the nightstand. Pt was then transferred to [facility]. Initial infectious workup returned with CTX-M [...] evaluated at bedside; recommend continuation of acute MAGNETIC TESTER therapy - Diet order on pureed solids [...] original note were not included. OCCUPATIONAL THERAPY [facility] Treatment Note Name/MRN: Sandy Deng ([id number]) Date of : 1960 Age: 63 y.o. [...] assist due to retro-grade balance Device(s) used: [facility] Cognition - Arousal/alertness: appropriate responses to stimuli [...] tested positive for COVID on 07/24. At [place] ICU she had worsening hypoxia and was placed on NIV but failed. Was ultimately intubated. Noted to be hypotensive and started on levophed. Ptwas transferred to [facility] for higher level of care. On [...] Normal [] Scar/Lesion/Mass Inspection of teeth/lips/gums Dentition: []False Pass Teeth []Dentures Lips/Gums: [x]Intact []Lesion Present Mucosa: [x][place] [x]Moist []Dry Neck: External Appearance Overall Appearance: [...] 17.7* ABGs: No results for input(s): PHART, ILE1CON, PO2ART, XCP2LGX, SO2ART, C2IQHIIS in thelast 72 hours. Lactic Acid: Recent [...] evaluated at bedside; recommend continuation of acute MAGNETIC TESTER therapy On Pureed solids and Mildly thick [...] original note were not included. PHYSICAL THERAPY [facility] Treatment Note Name/MRN: Sandy Deng ([id number]) Date of : 1960 Age: 63 y.o. [...] TP) Jennifer Saldaña, SPT * Svitlana Albarran CCC-MAGNETIC TESTER - 08/05/2024 9:22 AM EDT Images from the original note were not included. Speech-Language Pathology SPEECH LANGUAGE PATHOLOGY [facility] Dysphagia Treatment Note Patient Name: Sandy [...] Adult diet Dysphagia - Pureed; Mildly Thick ([place]) Diet effective now Comments: Medications crushed and placed in pureed foods. Question Answer Comment Diet type Dysphagia - Pureed Fluid consistency Mildly Thick ([place]) 08/04/24 1611 08/03/24 1639 Supplement:PM Snack, HS [...] wheat. Plan & Recommendations Plan: Continue acute MAGNETIC TESTER therapy per initial plan of care and [...] Start: 08/04/24 Expected End: 08/18/24 Therapy Time MAGNETIC TESTER Individual Minutes Time In: 08 Time Out: 909 Minutes: 17 Svitlana Albarran CCC-MAGNETIC TESTER * Jose Carlos Medrano MD - 08/05/2024 8:09 AM EDT Images from the original note were not included. NEPHROLOGY SOAP NOTE Visit date: 08/05/24, 8:10 AM Patient: Sandy Deng Room number: T2-213/T2-213 A Date of Admit: 07/26/2024 LOS: 10 days Referring physician: Saroj Sadler MD Outpatient Warehouse Picker: Christy Huerta DO ASSESSMENT/PLAN: UMA on CKD 4 - Cr has been 2.4-2.8, last (04/26) Cr 2.4 eGFR 20, 24 hr fgsakws=6714 mg. - On admit, (07/26) Cr 4.56, [...] IRON, TIBC, FERRITIN No results found for: [id number], FOLATE No results found for: COLORU, CLARITYU, [...] EDT Signed: Jose Carlos Medrano MD Nephrology [facility] ([facility]) Pager: [phone] Office Office * Janell Booker MD - [...] not included. Speech-Language Pathology SPEECH LANGUAGE PATHOLOGY [facility] Modified Barium Swallow Study Patient Name: [...] aspiration. Pt would benefit from skilled acute MAGNETIC TESTER services to initiate oropharyngeal exercises, ensure diet [...] COPD (chronic obstructive pulmonary disease) ([facility]) Diabetic neuropathy ([facility]) Hyperlipidemia Myocardial infarct ([facility]) Stage 4 chronic kidney disease ([facility]) Type 1 diabetes ([facility]) Past Surgical History: Past Surgical History: Procedure Laterality Date CORONARY ANGIOPLASTY WITH STENT PLACEMENT CORONARY ANGIOPLASTY WITH STENT PLACEMENT Admission Diagnosis: Patient Active Problem List Diagnosis Date Noted SDH (subdural hematoma) ([facility]) 07/26/2024 COPD (chronic obstructive pulmonary disease) ([facility]) 07/26/2024 Type 1 diabetes mellitus with kidney complication ([facility]) 07/26/2024 Myocardial infarction ([facility]) 07/26/2024 Hyperlipidemia 07/26/2024 Diabetic neuropathy associated with type 1 diabetes mellitus ([facility]) 07/26/2024 Stage 4 chronic kidney disease ([facility]) 07/26/2024 Pain: unable to answer but no evidence of same Reason for current admission: Found to have a subdural hematoma. She reportedly had a fall 1 month ago from bed. states she hit her head on the nightstand. She is on Plavix and ASA for a stent placed 7 years ago. Pt tested positive for COVID on 07/24. At [place] ICU she had worsening hypoxiaand was placed on NIV but failed. Was ultimately intubated. Noted to be hypotensive and started on levophed. Pt was transferred to [facility] for higher level of care. On [...] Start: 08/04/24 Expected End: 08/18/24 Therapy Time MAGNETIC TESTER Individual Minutes Time In: 1350 Time Out: 1410 Minutes: 20 Shanti Bianchi MA, CCC/MAGNETIC TESTER * May Wang, DO - 08/04/2024 11:22 [...] tested positive for COVID on 07/24. At [place] ICU she had worsening hypoxia and was placed on NIV but failed. Was ultimately intubated. Noted to be hypotensive and started on levophed. Ptwas transferred to [facility] for higher level of care. On [...] Normal [] Scar/Lesion/Mass Inspection of teeth/lips/gums Dentition: []False Pass Teeth []Dentures Lips/Gums: []Intact []Lesion Present Mucosa: [][place] []Moist []Dry Neck: External Appearance Overall Appearance: [...] 17.4* ABGs: No results for input(s): PHART, SZW2PNM, PO2ART, QDB0UUH, SO2ART, G1PXINBK in thelast 72 hours. Lactic Acid: No [...] Principal Problem: SDH (subdural hematoma) ([facility]) Active Problems: COPD (chronic obstructive pulmonary disease) ([facility]) Type 1 diabetes mellitus with kidney complication ([facility]) Hyperlipidemia Diabetic neuropathy associated with type 1 diabetes mellitus ([facility]) Assessment: Acute on Chronic Hypoxemic, [...] DVT Prophylaxis: Heparin subcutaneous Disposition: Transfer to [facility] I performed a history and physical [...] plan. Saroj Sadler MD * Svitlana Albarran [facility]-MAGNETIC TESTER - 08/04/2024 9:23 AM EDT Images from the original note were not included. Speech-Language Pathology SPEECH LANGUAGE PATHOLOGY [facility] Dysphagia Treatment Note Patient Name: Sandy [...] liquids. 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 She was found to be hypoxic and hypercarbic, and COVID positive. She continued to be delirious and did not tolerate NIV, and required intubation 07/27/24. A CT head was done to evaluate her altered mental status, and she was found to have a small acute right sided SDH vs. epidural hematoma. For this reason, [facility] consulted for further neurologic management and she [...] act but not able to answer questinos. MAGNETIC TESTER evaluated pt today 08/03/24 and recommends a soft and bitesized diet; pt is on same. Estimated Daily Nutrient Needs: Energy Requirements Based On: Kcal/kg Weight Used for Energy Requirements: [place] Weight for Energy Calculation (kg): 59 kg Total Energy Requirements (kcals/day): 25-30 kcals/kg = 0490-1078 kcals/day Weight Used for Protein Requirements: [place] Weight in Kg Used for Protein Requirements: [...] Weight: 48 kg (105 lb 13.1 oz) [place] Body Weight (lbs) (Calculated): 130 lbs [place] Body Weight (Kg) (Calculated): 59 kg % [place] Body Weight (Calculated): 105.1 % BMI (kg/m2) [...] Planning: Too soon to determine Shanti García RD,LD,[facility] Contact: *[phone] or [employer] Chat * Jose Carlos Medrano MD - 08/03/2024 1:32 PM EDT Images from the original note were not included. NEPHROLOGY SOAP NOTE Visit date: 08/03/24, 1:32 PM Patient: Sandy Deng Room number: T2-213/T2-213 A Date of Admit: 07/26/2024 LOS: 8 days Referring physician: Fly De La Garza DO Outpatient Warehouse Picker: Christy Huerta DO ASSESSMENT/PLAN: Non oliguric UMA on CKD 4 - Cr has been 2.4-2.8, last (04/26) Cr 2.4 eGFR 20, 24 hr pmntdft=1630 mg. - On admit, (07/26) Cr 4.56, [...] 6) Comment: per RD [facility] review Wt 62 kg (136 lb 11 [...] IRON, TIBC, FERRITIN No results found for: [id number], FOLATE No results found for: COLORU, CLARITYU, [...] LABFUNG IMAGING: POCT glucose meter Performed by: [facility], [address] [place] [address] CLIA ID: [id number] POCT glucose meter Performed by: [facility], [address] [place] [id number] CLIA ID: [id number] POCT glucose meter Performed by: [facility], [address] [place] [address] CLIA ID: [id number] Signed: Jose Carlos Medrano MD Nephrology [facility] ([facility]) Pager: [phone] Office Office * RENATO Kern - 08/03/2024 9:46 AM EDT Images from the original note were not included. Speech-Language Pathology SPEECH LANGUAGE PATHOLOGY [facility] Dysphagia Treatment Note Patient Name: Sandy [...] per dysphagia plan of care. Continue acute MAGNETIC TESTER therapy per initial plan of care and [...] Start: 08/01/24 Expected End: 08/15/24 Therapy Time MAGNETIC TESTER Individual Minutes Time In: 922 Time Out: 934 Minutes: 12 RENATO Kern * Jennifer Saldaña - 08/03/2024 9:36 AM EDT Images from the original note were not included. PHYSICAL THERAPY [facility] Initial Evaluation Name/MRN: Sandy Deng ([id number]) Evaluation Date: 08/03/2024 Date of : 1960 [...] COPD (chronic obstructive pulmonary disease) ([facility]) Diabetic neuropathy ([facility]) Hyperlipidemia Myocardial infarct ([facility]) Stage 4 chronic kidney disease (HCC) Type 1 diabetes ([facility]) Past Surgical History: Past Surgical History: Procedure Laterality Date CORONARY ANGIOPLASTY WITH STENT PLACEMENT CORONARY ANGIOPLASTY WITH STENT PLACEMENT Admission Diagnosis: Patient Active Problem List Diagnosis Date Noted SDH (subdural hematoma) ([facility]) 07/26/2024 COPD (chronic obstructive pulmonary disease) ([facility]) 07/26/2024 Type 1 diabetes mellitus with kidney complication ([facility]) 07/26/2024 Myocardial infarction ([facility]) 07/26/2024 Hyperlipidemia 07/26/2024 Diabetic neuropathy associated with type 1 diabetes mellitus ([facility]) 07/26/2024 Stage 4 chronic kidney disease ([facility]) 07/26/2024 Medical Precautions: No active [...] Responsibilities: Independent Receives Help From: Spouse Active Stock Grader: N/A Prior Level of Function ADL Assistance: [...] Raw Score (No Stairs) : 10 [facility] Score: Transferred to chair/commode Plan Pt [...] of Care supervision is transferred to a [facility] Physical Therapist. Goals and/or [...] tested positive for COVID on 07/24. At [place] ICU she had worsening hypoxia and was placed on NIV but failed. Was ultimately intubated. Noted to be hypotensive and started on levophed. Pt was transferred to [facility] for higher level of care. On [...] Normal [] Scar/Lesion/Mass Inspection of teeth/lips/gums Dentition: [x]False Pass Teeth []Dentures Lips/Gums: [x]Intact []Lesion Present Mucosa: [x][place] [x]Moist []Dry Neck: External Appearance Overall Appearance: [...] 18.1* ABGs: No results for input(s): PHART, WLC0ABW, PO2ART, BEG4ZDC, SO2ART, O0HBPIZP in the last 72 hours. Labs in [...] Principal Problem: SDH (subdural hematoma) ([facility]) Active Problems: COPD (chronic obstructive [...] for soft and bite sized diet per MAGNETIC TESTER. Has not expressed desire to eat. -Start [...] original note were not included. PHYSICAL THERAPY [facility] Name/MRN: Sandy Deng ([id number]) Date: 08/02/2024 Attempt Note. PT Eval and Treat order received. Per RN, pt eating and fatigued following OT. Pt states she reallytired and observed to have difficulty keeping eyes open. Pt educated on benefits of getting up in chair. Pt still would like to rest. Will continue to follow and re-attempt as able. Jennifer Saldaña, SPT * [place] Warner RCP - 08/02/2024 12:05 PM EDT [facility] Respiratory Care Department Progress Note As part [...] not included. Speech-Language Pathology SPEECH LANGUAGE PATHOLOGY [facility] Dysphagia Treatment Note Patient Name: Sandy [...] per dysphagia plan of care. Continue acute MAGNETIC TESTER therapy per initial plan of care and [...] Start: 08/01/24 Expected End: 08/15/24 Therapy Time MAGNETIC TESTER Individual Minutes Time In: 1057 Time Out: 1106 Minutes: 9 RENATO Kern * Jamey Muro, OT - 08/02/2024 11:09 AM EDT Images from the original note were not included. OCCUPATIONAL THERAPY [facility] Initial Evaluation Name/MRN: Sandy Deng ([id number]) Evaluation Date: 08/02/2024 Date of : 1960 [...] Responsibilities: Independent Receives Help From: Spouse Active Stock Grader: N/A Prior Level of Function ADL Assistance: [...] of Care supervision is transferred to a [facility] Occupational Therapist. Goals and/or treatment plan was established in collaboration with patient/family/other representatives. * Karyn Jones MD - 08/02/2024 10:06 AM EDT Images from the original note were not included. Nephrology Progress Note Patient: Sandy Deng Room number: T2-213/T2-213 A Date of Admit: 07/26/2024 LOS: 7 days Referring physician: Saroj Sadler MD Outpatient Warehouse Picker: Christy Huerta Assessment/Plan: Mrs. Sandy Deng is a 63 year old female with PMH of CKD 4, DM type 1, HTN, CAD, COPD (3L R9ksqfdrsf), initially presenting with resp distress and delirium, Covid positive. She was eventuallyintubated. CT head showed a small right SDH. Consulted for UMA on CKD 4 - follows with Dr Wilson ([place]). On review of available labs, Cr has been 2.4-2.8, last (04/26) Cr 2.4 eGFR 20, 24 hr uxvfiuf=0151 mg. On admit, (07/26) Cr 4.56, CRRT initiation for severe acidosis in setting of hemodynamic instability 07/26-08/01. Renal plan: Non oliguric UMA on CKD 4 - Cr has been 2.4-2.8, last (04/26) Cr 2.4 eGFR 20, 24 hr qsqpnxl=4281 mg. - On admit, (07/26) Cr 4.56, [...] will start service tomorrow. Karyn Jones MD [facility] ([facility]) Pager [phone] Office phone: [phone] Office fax: [phone] 08/02/2024 Subjective Noted weekend events, episode of [...] Catheter-Output (mL): 5 mL [REMOVED] Urethral Catheter Nvekkgga-efo-Evvpte (mL): 0 mL Urethral Catheter Straight-tip;Temperature probe-Output [...] tested positive for COVID on 07/24. At [place] ICU she had worsening hypoxia and was placed on NIV but failed. Was ultimately intubated. Noted to be hypotensive and started on levophed. Pt was transferred to [facility] for higher level of care. On [...] Normal [] Scar/Lesion/Mass Inspection of teeth/lips/gums Dentition: [x]False Pass Teeth []Dentures Lips/Gums: [x]Intact []Lesion Present Mucosa: [x][place] [x]Moist []Dry Neck: External Appearance Overall Appearance: [...] 07/30/24 0936 07/31/24 0605 PHART 7.399 7.335* STI2TUG 44.6 47.9* PO2ART 113.8* 143.8* LUD5EVH 26.9* 25.0 H5ODDGKH 30% Oxygen Nasal cannula Labs in Last [...] for soft and bite sized diet per MAGNETIC TESTER. Has not expressed desire to eat. -Start [...] PM EDT I have personally performed a lvkk-yj-royk diagnostic evaluation on this patient on date of service08/02/24. History, labs, imaging studies, and electronic medical record have been reviewed by me. This note documented by the [x]bunk house worker []TONJA reflects my history, exam, and [...] tested positive for COVID on 07/24. At [place] ICU she had worsening hypoxia and was placed on NIV but failed. Was ultimately intubated. Noted to be hypotensive and started on levophed. Pt was transferred to [facility] for higher level of care. On [...] time. Was cleared for pureed diet by MAGNETIC TESTER. Scheduled Meds:dexAMETHasone, 6 mg, IntraVENous, q24h Glycopyrrolate-Formoterol, [...] Normal [] Scar/Lesion/Mass Inspection of teeth/lips/gums Dentition: [x]False Pass Teeth []Dentures Lips/Gums: [x]Intact []Lesion Present Mucosa: [x][place] [x]Moist []Dry Neck: External Appearance Overall Appearance: [...] 0936 07/31/24 0605 PHART 7.370 7.399 7.335* NZL2KYS 46.3* 44.6 47.9* PO2ART 114.1* 113.8* 143.8* TXW3NLL 26.2* 26.9* 25.0 R8FJYPJC Vent 30% Oxygen Nasal cannula Labs in [...] PM EDT I have personally performed a yxch-lz-mxxx diagnostic evaluation on this patient on date of service08/01/2024. History, labs, imaging studies, and electronic medical record have been reviewed by me. This note documented by the [x]bunk house worker []TONJA reflects my history, exam, and [...] days Referring physician: Kena Heath DO Outpatient Warehouse Picker: Christy Huerta Assessment/Plan: Mrs. Sandy Deng is a 63 year old female with PMH of CKD 4, DM type 1, HTN, CAD, COPD (3L X4epxorfdy), initially presenting with resp distress and delirium, Covid positive. She was eventuallyintubated. CT head showed a small right SDH. Consulted for UMA on CKD 4 - follows with Dr Wilson ([place]). On review of available labs, Cr has been 2.4-2.8, last (04/26) Cr 2.4 eGFR 20, 24 hr bmhoggv=1682 mg. On admit, (07/26) Cr 4.56, CRRT [...] Case discussed with BO. Joni Monson MD [facility] ([facility]) Office phone: [phone] Office fax: [phone] 08/01/2024 Subjective Patient seen this am during [...] Catheter-Output (mL): 5 mL [REMOVED] Urethral Catheter Ulfjfdwy-umw-Vpypva (mL): 0 mL Urethral Catheter Straight-tip;Temperature probe-Output [...] support devices as above. * Shanti Bianchi MAGNETIC TESTER - 08/01/2024 9:06 AM EDT Images from the original note were not included. Speech-Language Pathology SPEECH LANGUAGE PATHOLOGY [facility] Dysphagia Treatment Note Patient Name: Sandy [...] PO diet. Plan & Recommendations Continue acute MAGNETIC TESTER therapy per initial plan of care and [...] Start: 08/01/24 Expected End: 08/15/24 Therapy Time MAGNETIC TESTER Individual Minutes Time In: 0845 Time Out: 0900 Minutes: 15 Shanti Bianchi MA, CCC/MAGNETIC TESTER * Joni Monson MD - 07/31/2024 2:48 PM EDT Images from the original note were not included. Nephrology Progress Note Patient: Sandy Deng Room number: T2-213/T2 A Date of Admit: 07/26/2024 LOS: 5 days Referring physician: Kena Heath DO Outpatient Warehouse Picker: Christy Huerta Assessment/Plan: Mrs. Sandy Deng is a 63 year old female with PMH of CKD 4, DM type 1, HTN, CAD, COPD (3L O8kzyaqacq), initially presenting with resp distress and delirium, Covid positive. She was eventuallyintubated. CT head showed a small right SDH. Consulted for UMA on CKD 4 - follows with Dr Wilson ([place]). On review of available labs, Cr has been 2.4-2.8, last (04/26) Cr 2.4 eGFR 20, 24 hr pgzmlld=0017 mg. On admit, (07/26) Cr 4.56, CRRT [...] care of this patient. Joni Monson MD [facility] ([facility]) Office phone: [phone] Office fax: [phone] 07/31/2024 Subjective Patient seen this am during [...] Catheter-Output (mL): 5 mL [REMOVED] Urethral Catheter Eirlrepa-dbg-Mgbdxd (mL): 0 mL Urethral Catheter Straight-tip;Temperature probe-Output [...] support devices as above. * Mary Menard, MAGNETIC TESTER - 07/31/2024 2:22 PM EDT Images from the original note were not included. Speech-Language Pathology SPEECH LANGUAGE PATHOLOGY [facility] Bedside Swallow Evaluation Patient Name: Sandy [...] 08/01. Pt would benefit from skilled acute MAGNETIC TESTER services to address further assess po intake [...] be evaluated. Dysphagia History: No history of MAGNETIC TESTER services in EMR with retrospective chart review [...] Date Noted SDH (subdural hematoma) ([facility]) 07/26/2024 COPD (chronic obstructive pulmonary disease) ([facility]) 07/26/2024 Type 1 diabetes mellitus with kidney complication ([facility]) 07/26/2024 Myocardial infarction ([facility]) 07/26/2024 Hyperlipidemia 07/26/2024 Diabetic neuropathy associated with type 1 diabetes mellitus ([facility]) 07/26/2024 Stage 4 chronic kidney disease ([facility]) 07/26/2024 History of Present Illness: 63 year old female with a PMHx of COPD (3L O2 baseline), DM, CKD 4, HTN, CAD, [place] (PCI with stents in 2017). at bedside. Pt was admitted to [facility] due to confusionand hallucinations. Pt has had episodes of staring off into space per family. Was found to have a subdural hematoma. She reportedly had a fall 1 month ago from bed. states she hit her head onthe nightstand. She is on Plavix and ASA for a stent placed 7 years ago. Pt tested positive for COVID on 07/24. Today at [place] ICU she had worsening hypoxia and was placed on NIV but failed. Was ultimately intubated. Noted to be hypotensive and started on levophed. Pt was transferred to [facility] for higher level of care. On [...] clinical dysphagia evaluation Start: 07/31/24 Therapy Time MAGNETIC TESTER Individual Minutes Time In: 1357 Time Out: 1419 Minutes: 22 RENATO Underwood * Joycelyn Diane, DO - 07/31/2024 7:54 AM EDT ICU Progress Note Name: Sandy Deng : 1960(63 y.o.) Date: 07/31/24 Team: MICU Attending: Dr. Jones Subjective: Hospital Summary: 63 year old female with a PMHx of COPD (3L O2 baseline), DM, CKD 4, HTN, CAD, [place] (PCI with stents in 2017). at bedside. Pt was admitted to [facility] due to confusion and hallucinations. Pt has had episodes of staring off into space per family. Was found to have a subdural hematoma. She reportedly had a fall 1 month ago from bed. states she hit her head on the nightstand. She is on Plavix and ASA for a stent placed 7 years ago. Pt tested positive for COVID on 07/24. Today at [place] ICU she had worsening hypoxia and was placed on NIV but failed. Was ultimately intubated. Noted to be hypotensive and started on levophed. Pt was transferred to [facility] for higher level of care. On [...] Normal [] Scar/Lesion/Mass Inspection of teeth/lips/gums Dentition: []False Pass Teeth []Dentures Lips/Gums: [x]Intact []Lesion Present Mucosa: [x][place] [x]Moist []Dry Neck: External Appearance Overall Appearance: [...] 0936 07/31/24 0605 PHART 7.370 7.399 7.335* RRE0JLI 46.3* 44.6 47.9* PO2ART 114.1* 113.8* 143.8* FFF7JCX 26.2* 26.9* 25.0 C3ASMMFR Vent 30% Oxygen Nasal cannula Lactic Acid: [...] after extubation. NCC now signed off - [facility] 6. Protecting airway. Will continue to monitor - Currently NPO without enteral meds. Will adjust orders pending speech eval Acute on Chronic Hypoxemic, Hypercapnic Resp Failure Septic Shock 2/2 Polymicrobial PNA COVID pos at OSH, micro testing pos for non-COVID coronavirus on admission - Per ID stewardship, tx with mayr ann for CTX-M pseudomonas coverage - Start [...] PM EDT I have personally performed a semb-jl-syna diagnostic evaluation on this patient on date of service07/31/2024. History, labs, imaging studies, and electronic medical record have been reviewed by me. This note documented by the [x]bunk house worker []TONJA reflects my history, exam, and [...] so far today, excludingprocedures. * Mary Mcintosh, PLANT INSPECTOR - 07/30/2024 11:48 AM EDT 07/30/24 1141 [...] days Referring physician: Kena Heath DO Outpatient Warehouse Picker: Christy Huerta Reason for Consult: Asked to [...] 4 - follows with Dr Christy Huerta ([place]). - On review of available labs, Cr has been 2.4-2.8, last (04/26) Cr 2.4 eGFR 20, 24 hr vsjnbmc=7279 mg. - Home med includes losartan 25 [...] 4 - follows with Dr Christy Huerta ([place]). On review of available labs, Cr has been 2.4-2.8, last (04/26) Cr 2.4 eGFR 20, 24 hr qeaqsxx=1223 mg. Home med includes losartan 25 mg [...] Urethral Catheter-Output (mL): 5 mL Urethral Catheter Ivuotvho-ahk-Rwitqc (mL): 0 mL FIO2 needs: Patient Vitals [...] IRON, TIBC, FERRITIN No results found for: [id number], FOLATE Recent Labs 07/27/24 2114 07/28/24 0409 [...] studies and notes. Karyn Jones MD Pager [phone] [facility] [phone] D/w ICU * Torito Mahajan - 07/30/2024 10:36 AM EDT NEUROCRITICAL CARE PROGRESS NOTE Patient Name: Sandy Deng Patient : 1960 Acct: [id number] Date of Admission: 07/26/2024 Room[facility]Bed: [facility] A PCP: Bird Lujan Interval Events: - [...] 10 mcg/mL infusion, 25-200 mcg/hr, IntraVENous, Continuous, Clraa Mayes DO, Last Rate: 8 mL/hr at [...] in 0.9 % sodium chloride 250 mL (Ajc-Cjolur-Iglkb) (premix), 2-100 mcg/min, IntraVENous, Continuous, Simone Momin [...] 78 ALT 23 AST 44 BILITOT 0.5 @[facility]EFLAB([facility]) ABGs:)No results for input(s): PH, PO2, [...] original note were not included. PHYSICAL THERAPY [facility] Name/MRN: Sandy Deng ([id number]) Date: 07/30/2024 Screen Note. Pt remains intubated [...] O2 baseline), DM, CKD 4, HTN, CAD, [place] (PCI with stents in 2017). at bedside. Pt was admitted to [facility] due to confusion and hallucinations. Pt has had episodes of staring off into space per family. Was found to have a subdural hematoma. She reportedly had a fall 1 month ago from bed. states she hit her head on the nightstand. She is on Plavix and ASA for a stent placed 7 years ago. Pt tested positive for COVID on 07/24. Today at [place] ICU she had worsening hypoxia and was placed on NIV but failed. Was ultimately intubated. Noted to be hypotensive and started on levophed. Pt was transferred to [facility] for higher level of care. On [...] Normal [] Scar/Lesion/Mass Inspection of teeth/lips/gums Dentition: []False Pass Teeth []Dentures Lips/Gums: [x]Intact []Lesion Present Mucosa: [x][place] [x]Moist []Dry Neck: External Appearance Overall Appearance: [...] 1408 07/30/24 0212 PHART 7.506* 7.439 7.370 KAK1WAW 34.5* 37.9 46.3* PO2ART 88.9 96.3 114.1* NXN8HSN 26.7* 25.1* 26.2* C6SNZXTK 30% Oxygen 30% Oxygen Vent Lactic Acid: [...] Principal Problem: SDH (subdural hematoma) ([facility]) Active Problems: COPD (chronic obstructive pulmonary disease) ([facility]) Type 1 diabetes mellitus with kidney complication ([facility]) Hyperlipidemia Diabetic neuropathy associated with type 1 [...] AM EDT I have personally performed a orva-pc-ojzz diagnostic evaluation on this patient on date of service07/30/2024. History, labs, imaging studies, and electronic medical record have been reviewed by me. This note documented by the [x]bunk house worker []TONJA reflects my history, exam, and [...] Number Called: NA Name of Designated Family Brine Process Operator: Jose Deng and pt's sister Relationship: spouse Family Brine Process Operator Updated on the Following: Updated on the [...] questions. Both individuals expressed understanding. * Karyn Jnoes MD - 07/29/2024 2:18 PM EDT Images from the original note were not included. Initial Nephrology Consult Note Patient: Sandy Deng Room number: T2-213/T2-213 A Date of Admit: 07/26/2024 LOS: 3 days Referring physician: Kena Heath DO Outpatient Warehouse Picker: Christy Huerta Reason for Consult: Asked to [...] 4 - follows with Dr Christy Huerta ([place]). - On review of available labs, Cr has been 2.4-2.8, last (04/26) Cr 2.4 eGFR 20, 24 hr iuattkl=7611 mg. - Home med includes losartan 25 [...] 4 - follows with Dr Christy Huerta ([place]). On review of available labs, Cr has been 2.4-2.8, last (04/26) Cr 2.4 eGFR 20, 24 hr tdbbdmk=5465 mg. Home med includes losartan 25 mg [...] Urethral Catheter-Output (mL): 5 mL Urethral Catheter Jrrbnqxx-enr-Aobppn (mL): 0 mL FIO2 needs: Patient Vitals [...] IRON, TIBC, FERRITIN No results found for: [id number], FOLATE Recent Labs 07/27/24 0530 07/27/24 1427 [...] studies and notes. Karyn Jones MD Pager [phone] [facility] [phone] D/w ICU * Jamey Muro OT - 07/29/2024 11:27 AM EDT Images from the original note were not included. OCCUPATIONAL THERAPY [facility] Name/MRN: Sandy Deng ([id number]) Date: 07/29/2024 Pt remains on strict bed rest. Will continue to follow. Jamey Muro OT * Jennifer Saldaña - 07/29/2024 9:25 AM EDT Images from the original note were not included. PHYSICAL THERAPY [facility] Name/MRN: Sandy Deng ([id number]) Date: 07/29/2024 Hold Note. Pt remains intubated [...] O2 baseline), DM, CKD 4, HTN, CAD, [place] (PCI with stents in 2017). at bedside. Pt was admitted to [place] due to confusion and hallucinations. Pt has had episodes of staring off into space per family. Was found to have a subdural hematoma. She reportedly had a fall 1 month ago from bed. states she hit her head on the nightstand. She is on Plavix and ASA for a stent placed 7 years ago. Pt tested positive for COVID on 07/24. Today at [place] ICU she had worsening hypoxia and was placed on NIV but failed. Was ultimately intubated. Noted to be hypotensive and started on levophed. Pt was transferred to [facility] for higher level of care. 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 History, labs, imaging studies, and electronic medical record have been reviewed by me. This note documented by the [x]bunk house worker []TONJA reflects my history, exam, and [...] days Referring physician: Kena Heath DO Outpatient Warehouse Picker: Christy Huerta Reason for Consult: Asked to [...] 4 - follows with Dr Christy Huerta ([place]). - On review of available labs, Cr has been 2.4-2.8, last (04/26) Cr 2.4 eGFR 20, 24 hr asqrsyl=2623 mg. - Home med includes losartan 25 [...] 4 - follows with Dr Christy Huerta ([place]). On review of available labs, Cr has been 2.4-2.8, last (04/26) Cr 2.4 eGFR 20, 24 hr hexilwo=1106 mg. Home med includes losartan 25 mg [...] Urethral Catheter-Output (mL): 5 mL Urethral Catheter Xnnvildm-aaj-Clbmem (mL): 0 mL FIO2 needs: Patient Vitals [...] IRON, TIBC, FERRITIN No results found for: [id number], FOLATE Recent Labs 07/26/24 1850 07/27/24 0530 [...] studies and notes. Karyn Jones MD Pager [phone] [facility] [phone] * Torito Mahajan - 07/28/2024 10:43 AM EDT NEUROCRITICAL CARE PROGRESS NOTE Patient Name: Sandy Deng Patient : 1960 Acct: [id number] Date of Admission: 07/26/2024 Room/Bed: T2-213/T2-213 A [...] in 0.9 % sodium chloride 250 mL (Zgy-Cbhmbj-Nxoah) (premix), 2-100 mcg/min, IntraVENous, Continuous, Simone Momin [...] 416 ms QTC Interval 456 ms P [place] 0 degrees QRS [place] 14 degrees [place] 0 degrees [place] Interval 0 ms Basic metabolic panel Collection [...] 66 ALT 19 AST 28 BILITOT 0.3 @BRIEFLAB([facility]) ABGs:)No results for input(s): PH, PO2, [...] and patient's plan of care with my TOJNA/resident/fellow/student, the consulting team and patient's family members/surrogate [...] O2 baseline), DM, CKD 4, HTN, CAD, [place] (PCI with stents in 2017). at bedside. Pt was admitted to [facility] due to confusion and hallucinations. Pt has had episodes of staring off into space per family. Was found to have a subdural hematoma. She reportedly had a fall 1 month ago from bed. states she hit her head on the nightstand. She is on Plavix and ASA for a stent placed 7 years ago. Pt tested positive for COVID on 07/24. Today at [facility] ICU she had worsening hypoxia and was placed on NIV but failed. Was ultimately intubated. Noted to be hypotensive and started on levophed. Pt was transferred to [facility] for higher level of care. On [...] Normal [] Scar/Lesion/Mass Inspection of teeth/lips/gums Dentition: []False Pass Teeth []Dentures Lips/Gums: [x]Intact []Lesion Present Mucosa: [x][place] [x]Moist []Dry Neck: External Appearance Overall Appearance: [...] 1622 07/28/24 0409 PHART 7.286* 7.398 7.401 ZIL4TCH 52.3* 41.9 38.6 PO2ART 115.1* 100.1* 120.0* EFF7CFT 24.4 25.3* 23.4 L3AESYTE 30% Oxygen 30% Oxygen Vent Lactic Acid: [...] Principal Problem: SDH (subdural hematoma) ([facility]) Active Problems: COPD (chronic obstructive [...] PM EDT I have personally performed a nbgf-ho-klso diagnostic evaluation on this patient on date of service07/28/2024. History, labs, imaging studies, and electronic medical record have been reviewed by me. This note documented by the [x]bunk house worker []TONJA reflects my history, exam, and [...] Torres RCP - 07/28/2024 4:53 AM EDT [facility] Respiratory Care Department Progress Note [...] 1622 07/28/24 0409 PHART 7.286* 7.398 7.401 FRL3SKJ 52.3* 41.9 38.6 PO2ART 115.1* 100.1* 120.0* RVZ0ETL 24.4 25.3* 23.4 W5EBVMIW 30% Oxygen 30% Oxygen Vent Does this [...] 12- 24 hours post-extubation. [place] Sahni MA [facility] * Delmar Ling OT - 07/27/2024 8:22 AM EDT Images from the original note were not included. OCCUPATIONAL THERAPY [facility] Name/MRN: Sandy Deng ([id number]) Date: 07/27/2024 Intubated, sedated, on bed rest. Will follow. Delmar Ling OT * Jennifer Saldaña - 07/27/2024 7:30 AM EDT Images from the original note were not included. PHYSICAL THERAPY [facility] Name/MRN: Snady Deng ([id number]) Date: 07/27/2024 Screen Note. Pt remains intubated [...] 2017). at bedside. Pt was admitted to [facility] due toconfusion and hallucinations. Pt has had episodes of staring off into space per family. Was found to have a subdural hematoma. She reportedly had a fall 1 month ago from bed. states she hit her head on the nightstand. She is on Plavix and ASA for a stent placed 7 years ago. Pt tested positive for COVID on 07/24. Today at [facility] ICU she had worsening hypoxia and was placed on NIV but failed. Was ultimately intubated. Noted to be hypotensive and started on levophed. Pt was transferred to [facility] for higher level of care. On [...] Normal [] Scar/Lesion/Mass Inspection of teeth/lips/gums Dentition: []False Pass Teeth []Dentures Lips/Gums: [x]Intact []Lesion Present Mucosa: [x][place] [x]Moist []Dry Neck: External Appearance Overall Appearance: [...] Recent Labs 07/26/24223107/27/24 0652 PHART 7.166* 7.214* SXJ1VGS 30.4* 53.5* PO2ART 95.4 108.9* EYR6BUP 10.7* 21.1 V5QTQPNF Vent Vent Lactic Acid: Recent Labs 07/26/24 [...] Principal Problem: SDH (subdural hematoma) ([facility]) Active Problems: COPD (chronic obstructive pulmonary disease) ([facility]) Type 1 diabetes mellitus with kidney complication ([facility]) Hyperlipidemia Diabetic neuropathy associated with type 1 diabetes mellitus ([facility]) Assessment: Acute on chronic hypoxemic, hypercapneic respiratory [...] PM EDT I have personally performed a ydhq-bg-ihxw diagnostic evaluation on this patient on date of service07/27/2024. History, labs, imaging studies, and electronic medical record have been reviewed by me. This note documented by the [x]bunk house worker []TONJA reflects my history, exam, and [...] CKD, on ASA/Plavix who initially presented to [facility] on 07/23 with acute respiratory distress and acutedelirium. She was found to be hypoxic and hypercarbic, and COVID positive. She continued to be delirious and did not tolerate NIV, and today required intubation. A CT head was done to evaluate her altered mental status, and she was found to have a small acute right sided SDH vs. epidural hematoma. For this reason, [facility] consulted for further neurologic management and she [...] 0.01-0.03 Units/min, Last Rate: 0.03 Units/min (07/26/24 5425) PRN Meds:PRN medications: dextrose, dextrose, glucagon (rDNA), glucose, hydrALAZINE, labetalol, naloxone, ondansetron ODT OR ondansetron, polyethylene glycol (PEG) 3350, sodium chloride, sodium chloride ASSESSMENT AND PLAN: 63 y.o. female s/p presented to [facility] ED with confusion since the prior night [...] SDH -patient admitted yesterday after transfer from [facility] with hypoxic respiratory failure, known COPD hx, [...] minutes (including chart/data review/analysis, care coordination, and lokc-aa-erhz encounter), and was spent discussing/counseling the patient/family [...] & Acute Care Surgery Department of Surgery [facility] Pager: [phone] ~~~~~~~~~~~~~~~~~~~~~~~~~~~~~~~~~~~~~~~~~~~~~~~~~~~~~~~~~~~~~ This note may have been dictated using MoodMe Medical Practice Edition 2.6 and/or Virgance Voice Recognition Feature. The document was proofread; however, unrecognized voice recognition knife setter assembler errors may be present. * Joni Monson [...] epidural hematoma and patient was transferred to [facility]. She was placed on levophed. She [...] call with any questions. Joni Monson MD [facility] ([facility]) Office phone: [phone] Office fax: [phone] 07/27/2024 documented in this [facility]10-08-2024 Miscellaneous Notes* Care Coordination - Otilia Arellano RN - 08/10/2024 11:38 AM EDT Active with survey research professor avery ext [phone] per , tcc called left VM regarding discharge plan. At today , will discharge to [facility] , at bedside aware and agree to plan .. * Care Coordination - Unknown Case Management - 08/10/2024 10:00 AM EDT Patient Choice Patient Name: SANDY DENG Date of : 1960 All Providers Sent Referral Name: [facility] Address: [address] [place] [address] Name: [facility] Phone: [phone] Address: [address] [place] [address] Name: [facility] Phone: [phone] Address: [address] [place] [address] Name: [facility] Address: [address] [place] [address] Name: [facility] Address: [address] [place] [address] Name: [facility] Phone: [phone] Address: [address] [place] [address] * Care Coordination - SAPNA Richards - 08/10/2024 9:59 AM EDT Transportation set via [employer] through [facility] for today 08-10-24 @2pm to [facility]. ROSALINE, RN, Aerodynamic Consultant, facility, Pt, and Pt's Jose notified. * Care Coordination - Kimberlee Valdovinos - 08/10/2024 8:14 AM EDT Discharge med list transmitted to REHAB- [facility] via Careport per TCC request. * Care Coordination - Otilia Arellano RN - 08/10/2024 6:15 AM EDT She is approved to [facility], [facility] to send mar today . Med [...] she has been to HD class at [facility] . And that is the out pt [...] Need accepting rehab center- tcc messaged to [facility] and [facility] and [facility] [...] out pt HD , will try for [facility], did not prefer days anything will work [...] 8:29 AM EDT [facility] via [facility] per TCC request. Referral placed to [facility] via Careport per TCC request. Await review and response regarding ability to accept. TCC notified. * Care Coordination - Otilia Arellano RN - 08/06/2024 6:50 AM EDT Transfer from [facility], complex discharge, need HD, recent covid, per PT/OT need rehab, live in [place], ready for discharge soon, not today , [...] and too far as she lives in [place] area, will get lists to bedside and [...] until HD bed available. BHARAT notes that [facility] IPR nor [facility] IPR have in house HD. Patient was hoping to have IPRwith in house HD. CM will discuss with patient, as able, for other options than IPR at [facility]. [facility] and [facility] are locations not yet offered/confirmed if they [...] Re-introduced myself and role. Discussed discharge planning. [facility] does not have inpatient diaylsis. Patient would prefer to participate in IPR at [facility] where IPHD is available. CM updated facilities. Discharge Plan: [facility]. Awaiting OT eval, facility precert, clinical stability and medical clearance. Will continue to follow with [facility]. Length of Stay (Days): 9 GMLOS: 5.1 * Care Coordination - Shilo Bose - 08/03/2024 2:05 PM EDT Referral placed to Rehab - [facility] via Careport per [facility] request. Await review and response regarding ability [...] agreeable to rehab at discharge. CM tasked [facility] Yes, addressed in today's progress note Anticipated [place] Medications (ICU initiated) or Dose Changes and [...] 24 hours of ICU transfer, page ICU [place] [facility] for clarifications. * Care Coordination - [...] Assess Permission given to speak with patient patient services representative/caregiver as indicated: Confirmation of Payer with patient/family: Payer Name: [facility] [place] : Confirmation of Primary Care Physician: PCP [...] Information: Chart reviewed. Patient direct admit from [facility] to [facility] ICU for SDH 07/26/2024. Consults to IP CONSULT TO NEUROSURGERY IP CONSULT TO NEUROLOGY IP CONSULT TO NEPHROLOGY Initial Assessment: IA completed with chart review. Patient transferred from [facility]. NOK listed. Patient has insurance, prescription coverage and active with PCP. CM called PCP office spoke with BO Walker to confirm patient active. Discharge Planning/Barrier: Intubated/sedated. Art line. TLC CVC. HDC. CRRT. N/OGT. NPO. Johnson. IV qtt - levophed, vasopressin PT/OT/MAGNETIC TESTER pending. CM requests [facility] to follow peripher[facility]. Discharge Plan: TBD. Awaiting clinical stability and medical clearance. Will continue to follow with [facility]. Shaniqua Parker RN documented in this [facility]10-08-2024 [facility] 08-09-2024 Hospital Discharge instructions* Discharge Instr - CHELO* Jim Rodriguez RN - 08/09/2024 1:31 PM EDT Images from the original note were not included. Continuity of Care Form Patient Name: Sandy Deng : 1960 Admit date: 07/26/2024 Discharge date: 08/10/2024 Code Status Order: Full Code Advance Directives: N Admitting Physician: Ino Conte MD PCP: Bird Lujan Discharging Nurse: Jim RN Discharging Hospital Unit/Room#: W3-113/W3-868 B Discharging Unit Phone Number: [phone] Emergency Contact: Extended Emergency Contact Information Primary Emergency Contact: Bobbi Steward Mobile Relation: Daughter Preferred language: Yemeni Customer Orders Clerk needed? No Secondary Emergency Contact: Jose Deng Mobile Relation: Spouse Preferred language: Yemeni Customer Orders Clerk needed? No Past Surgical History: Past Surgical [...] assistance Toileting Minimal assistance Feeding Minimal assistance Farm Equipment Engine Mechanic Total assistance Med Delivery yes Wound Care [...] Date: 07/26/24 Discharging to Facility/ Agency Name: [facility] Address: [address] Fax: Dialysis Facility (if applicable) Name: [facility] is preference at out pt if needed Address: Dialysis Schedule: Phone: Fax: Home Worker/Manufacturing Area Manager signature: at1:31 PM PHYSICIAN SECTION Name: Sandy [...] to a nursing facility directly from an [facility] or a unit of a [facility] that is not operated by or licensed by [facility] under section 5119.14 or 5160-3-15.1 [...] in H&P PHYSICIAN SIGNATURE: documented in this [place] [address]-01-2024 NoteRef[facility] per [facility] request. Await review and response regarding ability to accept. TCC notified. Electronically signed by [facility]09-26-2024 [facility]09-26-2024 Procedure note* Armen Diaz MD PhD - 07/29/2024 12:43 PM EDTAssociated Order(s): EEG CONTINUOUS MONITORING Images from the original note were not included. [facility] [address] [place] [id number] CONTINUOUS LONG-TERM VIDEO EEG MONITORING REPORT Patient Name: Sandy Deng : 1960 Date of Study: 07/29/2024 Duration Recorded: 14:59:56 EEG#: [id number] COOK RESTAURANT: LIBRA Peters CLTM PROVIDER REQUESTING STUDY: Dr. Mahajan REASON FOR EXAM: Evaluate for epileptiform activity DIAGNOSIS TAG: Subdural Hemorrhage (SDH) HISTORY: Sandy Deng is a 63 y.o. female with history of COPD (3L O2 baseline), DM, CKD 4, HTN, CAD (PCI with stents in 2017). at bedside. Pt was admitted to [facility] due to confusion and hallucinations. Pt has had episodes of staring off into space per family. Was found to have a subdural hematoma. She reportedly had a fall 1 month ago from bed. states she hit her head on the nightstand. She is on Plavix and ASA for a stent placed 7 years ago. Pt tested positive for COVIDon 07/24. Today at [facility] ICU she had worsening hypoxia and was placed on NIV but failed. Was ultimately intubated. Noted to be hypotensive and started on levophed. Pt was transferred to [facility] for higher level of care. On [...] in 0.9 % sodium chloride 250 mL (Fwa-Wozwny-Vpfio) (premix) 2-100 mcg/min IntraVENous Continuous Simone Momin [...] study with video was carried out at [facility]. Scalp electrodeswere positioned in person by an cardiac cath lab technologist, following patient education, according to the 10-20 International system of electrode placement and maintained for integrity and quality of the recording. EEG data with video was recorded continuously and digitally stored. The cardiac cath lab technologist reviewed all automated detections and manual [...] delta-theta range (0.5- 6.5 Hz, 20-55 uV) ikfkqyrxz-ux-okbiidpxoiugvp slowing was seen unresponsive to stimulation. At times, intermixed generalized periodic discharges with triphasic morphology and jpsahgsb-mk-xhnlszvcl phase delay are observed(0.5-1.5 Hz, 70-120 uV). 12:25:37 -Continuous slowing, generalized + triphasic waves (Referential to average, LFF=1Hz, HFF=30Hz, Sens=5 uV/mm) INTERICTAL EPILEPTIFORM ACTIVITY: No epileptiform activity was seen. ICTAL ACTIVITY: No ictal activity was seen. NON-EPILEPTIC EVENTS: None ACTIVATION PROCEDURES: Photic stimulation was not performed. Hyperventilation was not performed. IMPRESSION AND ACTIONS TAKEN: This continuous EEG with video is abnormal. Continuous diffuse dydrlsyv-yw-agkdnw slowing is seen with intermixed triphasic waves. [...] from the original note were not included. [facility] [address] [place] [id number] CONTINUOUS LONG-TERM VIDEO EEG MONITORING REPORT Patient Name: Sandy Deng : 1960 Date of Study: 07/28/2024 Duration Recorded: 23:48:31 EEG#: [id number] COOK RESTAURANT: LIBRA Peters CLTM PROVIDER REQUESTING STUDY: Dr. Mahajan REASON FOR EXAM: Evaluate for epileptiform activity DIAGNOSIS TAG: Subdural Hemorrhage (SDH) HISTORY: Sandy Deng is a 63 y.o. female with history of COPD (3L O2 baseline), DM, CKD 4, HTN, CAD (PCI with stents in 2017). at bedside. Pt was admitted to [facility] due to confusion and hallucinations. Pt has had episodes of staring off into space per family. Was found to have a subdural hematoma. She reportedly had a fall 1 month ago from bed. states she hit her head on the nightstand. She is on Plavix and ASA for a stent placed 7 years ago. Pt tested positive for COVIDon 07/24. Today at [facility] ICU she had worsening hypoxia and was placed on NIV but failed. Was ultimately intubated. Noted to be hypotensive and started on levophed. Pt was transferred to [facility] for higher level of care. On [...] injection 5 Units 5 Units SubCUTAneous Nightly Sarjo Knox MD 5 Units at 07/27/242039 insulin [...] in 0.9 % sodium chloride 250 mL (Osn-Astjtz-Qybgt) (premix) 2-100 mcg/min IntraVENous Continuous Saif-Mario Albertoeli [...] study with video was carried out at [facility]. Scalp electrodeswere positioned in person by an cardiac cath lab technologist, following patient education, according to the 10-20 International system of electrode placement and maintained for integrity and quality of the recording. EEG data with video was recorded continuously and digitally stored. The cardiac cath lab technologist reviewed all automated detections and manual [...] delta-theta range (0.5- 6.5 Hz, 20-55 uV) ziazfkykj-wn-qhrabjgsjvllyz slowing was seen unresponsive to stimulation. 12:04:28 -Continuous slowing, generalized (Referential to average, LFF=1Hz, HFF=30Hz, Sens=5 uV/mm) INTERICTAL EPILEPTIFORM ACTIVITY: No epileptiform activity was seen. ICTAL ACTIVITY: No ictal activity was seen. NON-EPILEPTIC EVENTS: None ACTIVATION PROCEDURES: Photic stimulation was not performed. Hyperventilation was not performed. IMPRESSION AND ACTIONS TAKEN: This continuous EEG with video is abnormal. Continuous diffuse dvubxsbo-ug-yxopyo slowing is seen unresponsive to stimulation. No interictal epileptiform activity nor seizures are observed. Compared with the previous day of recording, a cyclic alternating pattern of encephalopathy (CAPE) is no longer observed. These findings remain indicative of a potentially worsening wcvzrqtc-dn-wbgkyv global encephalopathy nonspecific as to etiology. Jasmeet Arevalo, PhD Clinical Neurophysiologist Armen Diaz MD PhD Epilepsy Attending * Armen Diaz MD PhD - 07/27/2024 1:43 PM EDTAssociated Order(s): EEG CONTINUOUS MONITORING Images from the original note were not included. [facility] [address] [place] [id number] CONTINUOUS LONG-TERM VIDEO EEG MONITORING REPORT Patient Name: Sandy Deng : 1960 Date of Study: 07/27/2024 Duration Recorded: 10:39:13 EEG#: [id number] COOK RESTAURANT: LIBRA Peters CLTM PROVIDER REQUESTING STUDY: Dr. Mahajan REASON FOR EXAM: Evaluate for epileptiform activity DIAGNOSIS TAG: Subdural Hemorrhage (SDH) HISTORY: Sandy Deng is a 63 y.o. female with history of COPD (3L O2 baseline), DM, CKD 4, HTN, CAD (PCI with stents in 2017). at bedside. Pt was admitted to [facility] due to confusion and hallucinations. Pt has had episodes of staring off into space per family. Was found to have a subdural hematoma. She reportedly had a fall 1 month ago from bed. states she hit her head on the nightstand. She is on Plavix and ASA for a stent placed 7 years ago. Pt tested positive for COVIDon 07/24. Today at [facility] ICU she had worsening hypoxia and was placed on NIV but failed. Was ultimately intubated. Noted to be hypotensive and started on levophed. Pt was transferred to [facility] for higher level of care. On [...] 100 mL IVPB 3,000 mg IntraVENous Once Sarjo Knox MD Stopped at 07/27/24 1407 cefepime [...] in 0.9 % sodium chloride 250 mL (Dea-Mqgsoq-Uxrdo) (premix) 2-100 mcg/min IntraVENous Continuous Gregg-Mario Alberto [...] study with video was carried out at [facility]. Scalp electrodeswere positioned in person by an cardiac cath lab technologist, following patient education, according to the 10-20 International system of electrode placement and maintained for integrity and quality of the recording. EEG data with video was recorded continuously and digitally stored. The cardiac cath lab technologist reviewed all automated detections and manual [...] upper axial body and head, with subtle vshp-jks-acuet head movements at a frequency of 4 [...] abnormal states. State 1is characterized by continuous vaxmfpvu-eu-esmptz diffuse slowing. State 2 features lower amplitudeand [...] upper axial body and head, with subtle tokk-hmq-ywjlg head movements. This activity ended with a transition to CAPE State 2. The findings are supportive of a jwvhivlr-nx-wmaifw global encephalopahy non- specific as to etiology. [...] documented as signed by this procedure note Skiff Operator: Dr. Knox The attending physician was physically [...] documented as signed by this procedure note Skiff Operator: Dr. Concepcion The attending physician was physically present while the proceduralist performed cantrell/critical components of the procedure. Attending: Dr. Concepcion Associated attestation - Mynor Concepcion DO - 07/27/2024 12:52 AM EDT I have reviewed and agree with the resident/fellow/TONJA note I was physically present for cnatrell elements of the procedure Complications during procedure: None documented in this [facility]09-25-2024 [facility] 07-28-2024 Consult note* Shanti García RD - [...] loss Fluid Accumulation: No significant fluid accumulation Head Boys Golf Coach Strength: Not Performed Nutrition Assessment: Pt is a 63-year-old female with multiple medical co-morbidities including Type I DM (on insulin pump), COPD on 4L home O2, CKD4, on ASA/Plavix who initially presented to [facility] on 07/23 withacute respiratory distress and acute delirium. 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 She was found to be hypoxic and hypercarbic, and COVID positive. She continued to be delirious and did not tolerate NIV, and required intubation 07/27/24. A CT head was done to evaluate her altered mental status, and she was found to have a small acute right sided SDH vs. epidural hematoma. For this reason, [facility] consulted for further neurologic management and she [...] On: Kcal/kg Weight Used for Energy Requirements: [place] Weight for Energy Calculation (kg): 59 kg Total Energy Requirements (kcals/day): 25-30 kcals/kg = 3006-3652 kcals/day Weight Used for Protein Requirements: [place] Weight in Kg Used for Protein Requirements: [...] lb 13.1 oz) Weight Source: Not Specified [place] Body Weight (lbs) (Calculated): 130 lbs [place] Body Weight (Kg) (Calculated): 59 kg % [place] Body Weight (Calculated): 81.4 % BMI (kg/m2) [...] soon to determine Shanti García RD,LD,CNSC Contact: *[phone] or [employer] Chat * Torito Keyshawn - 07/27/2024 2:11 PM EDTAssociated Order(s): IP CONSULT TO NEUROLOGY NEUROCRITICAL CARE CONSULT NOTE Patient Name: Sandy Deng Patient : 1960 Acct: [id number] Date of Admission: 07/26/2024 Room/Bed: T2213/[facility] PCP: Bird Lujan Chief Complaint: encephalopathy [...] 5 % infusion, 100 mL/hr, IntraVENous, PRN, Doddridge Yair MD dextrose 50 % solution 12.5 [...] in 0.9 % sodium chloride 250 mL (Aii-Nxgyzp-Yvubk) (premix), 2-100 mcg/min, IntraVENous, Continuous, Simone Momin [...] 448 ms QTC Interval 459 ms P [place] 82 degrees QRS [place] -71 degrees T Wave [place] 88 degrees RI Interval 98 ms Procalcitonin Test Collection Time: [...] 66 ALT 19 AST 28 BILITOT 0.3 @BRIEFLAB([facility]) ABGs:)No results for input(s): PH, PO2, [...] consulted. Per report, patient initially presented to [facility] with respiratory distress and delirium.She was ultimately [...] 448 ms QTC Interval 459 ms P [place] 82 degrees QRS [place] -71 degrees T Wave [place] 88 degrees RI Interval 98 ms Procalcitonin Test Collection Time: [...] sign-off at this time Romero Wright MD [facility] Neurosurgery I spent 60 minutes [...] days Referring physician: Kena Heath DO Outpatient Warehouse Picker: Christy Huerta Reason for Consult: Asked to [...] 4 - follows with Dr Christy Huerta ([place]). - On review of available labs, Cr has been 2.4-2.8, last (04/26) Cr 2.4 eGFR 20, 24 hr jaygcym=4138 mg. - Home med includes losartan 25 [...] 7. Acute resp failure/COVID - intubated, per [facility] - remdesivir/steroids/cefepime 8. Altered MS R SDH [...] epidural hematoma and patient was transferred to [facility]. She was placed on levophed. Initial [...] 4 - follows with Dr Christy Huerta ([place]). On review of available labs, Cr has been 2.4-2.8, last (04/26) Cr 2.4 eGFR 20, 24 hr inipjjh=9164 mg. Home med includes losartan 25 mg [...] IRON, TIBC, FERRITIN No results found for: [id number], FOLATE Recent Labs 07/26/24184907/27/24 0530 NA 125* [...] studies and notes. Karyn Jones MD Pager [phone] [facility] [phone] Greater than 65 min of time spent on prepping chart, reviewing outpt pcp/insurance consultant notes/cumulative labs, imaging, FTF time, interpretation [...] 2017). at bedside. Pt was admitted to [facility] due to confusion and hallucinations. Pt has had episodes of staring off into space per family. Was found to have a subdural hematoma. She reportedly had a fall 1 month ago from bed. states she hit her head on the nightstand. She is on Plavix and ASA for a stent placed 7 years ago. Pt tested positive for COVID on 07/24. Today at [facility] ICU she had worsening hypoxia and was placed on NIV but failed. Was ultimately intubated. Noted to be hypotensive and started on levophed. Pt was transferred to [facility] for higher level of care. On [...] Normal [] Scar/Lesion/Mass Inspection of teeth/lips/gums Dentition: [x]False Pass Teeth []Dentures Lips/Gums: [x]Intact []Lesion Present Mucosa: [x][place] [x]Moist []Dry Neck: External Appearance Overall Appearance: [...] Principal Problem: SDH (subdural hematoma) ([facility]) Active Problems: COPD (chronic obstructive [...] AM EDT I have personally performed a [id number] diagnostic evaluation on this patient on date of /23/24. History, labs, imaging studies, and electronic medical record have been reviewed by me. This note documented by the [x]bunk house worker []TONJA reflects my history, exam, and medical decision making. I have reviewed and agree with the care plan. Changes were made in the orders as necessary. ROS documentation was reviewed and negative unless otherwise stated in HPI. Assessment: Acute hypoxic, hypercapnic respiratory failure COVID19 pneumonia Acute metabolic encephalopathy R SDH, small/subacute Severe NAGMA UMA/CKD [facility] Add COVID19 rx incl decadron, [...] is 35 minutes. documented in this [facility]09-24-2024 [facility] 07-27-2024 NoteAcceptable Specimen? Acceptable Specimen(Evaluation not needed) Gram Stain 3+ White Blood Cells No Epithelial cells 3+ Gram positive cocci 1+ Gram negative rodsWayne Healthcare Main CampusComment on above:Performed By: #### M100.2400, M100.1999 ####[facility] [address] [place], [address](619) 490-969809-24-2024 [facility] 07-26-2024 [facility] 07-26-2024 History and physical note* Deacon Mazariegos MD - 07/26/2024 4:37 PM EDT Images from the original note were not included. [facility] SICU H&P 07/26/2024 6:01 PM Attending: Dr. Holbrook Chief Complaint: Brain Bleed History of Present Illness: 63 y.o. female presented to [facility] ED with confusion since the prior night [...] ADDENDUM I personally supervised the resident or BARREL RIBS SOLDERER/STACY in the evaluation and development of a [...] CKD, on ASA/Plavix who initially presented to [facility] on 07/23 (3 days ago) with acute [...] sided SDH vs.epidural hematoma. For this reason, [facility] wa consulted for further neurologic management and she was transferred to SICU. I spoke to the patient's , son, and sister who were present at the patient's bedside. They report that leading up to her visit to [facility] ED she was acting delirious and frequently getting outof bed in the middle of night. She may have hit her head during one of these episodes, however she did not have a fall or witnessed head trauma during her brief hospitalization at [facility]. I reviewed her CT head from [facility] at 0100 this [...] MD Division of Trauma Department of Surgery [facility] documented in this [facility]09-23-2024 [facility]07-18-2023 [facility] N[facility]ative - Reported* ChiefComplaintFreeTextNoteForm_: * Kidney transplant surgical evaluation for potential active candidacy on kidney transplant list [id number] [address] Work Phone: Evaluation note* Diagnosis Onset Date Resolution Status CKD (chronic kidney disease) stage 4, GFR 15-29 ml/min chronic Diabetes chronic Essential (primary) hypertension chronic Tobacco abuse [facility] Work Phone: Evaluation note* Diagnosis Onset Date Resolution Status CKD (chronic kidney disease) stage 4, GFR 15-29 ml/min chronic Diabetes chronic Essential (primary) hypertension chronic Tobacco abuse chronic Chronic obstructive pulmonary disease chronic Smoking greater than 30 pack years [facility] Work Phone: Evaluation note* Diagnosis Onset Date Resolution Status Chronic obstructive pulmonary disease chronic Respiratory failure with hypoxia chronic Smoking greater than 30 pack years chronic Fissure in skin of foot acut e CKD (chronic kidney disease) stage 4, GFR 15-29 ml/min chronic DM type 1 (diabetes mellitus, type 1) chronic Tobacco abuse [facility] Work Phone: evaluation note* Diagnosis Onset Date Resolution Status Fissure in skin of foot acut e CKD (chronic kidney disease) stage 4, GFR 15-29 ml/min chronic DM type 1 (diabetes mellitus, type 1) chronic Tobacco abuse chronic Chronic obstructive pulmonary disease chronic Smoking greater than 30 pack years [facility] Work Phone: evaluation note* Diagnosis Onset Date Resolution Status CKD (chronic kidney disease) stage 4, GFR 15-29 ml/min chronic DM type 1 (diabetes mellitus, type 1) chronic Hyperlipidemia chronic 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 Atherosclerosis of coronary artery of [place] heart without angina pectoris chronic Chronic obstructive pulmonary disease chronic Cigarette nicotine dependence [facility] Work Phone: evaluation note* Diagnosis Onset Date Resolution Status Atherosclerosis of coronary artery of [place] heart without angina pectoris chronic Chronic obstructive pulmonary disease chronic Cigarette nicotine dependence chronic Atherosclerosis of coronary artery of [place] heart without angina pectoris chronic Essential (primary) hypertension chronic Hyperlipidemia [facility] Work Phone: evaluation note* Diagnosis Onset Date Resolution Status Atherosclerosis of coronary artery of [place] heart without angina pectoris chronic Essential (primary) hypertension chronic Hyperlipidemia [facility] Work Phone: evaluation note* Diagnosis Onset Date Resolution Status Lung nodule, solitary acute Chronic obstructive pulmonary disease chronic Smoking greater than 30 pack years chronic CKD (chronic kidney disease) stage 4, GFR 15-29 ml/min chronic DM type 1 (diabetes mellitus, type 1) [facility] Work Phone: Evaluation note* Diagnosis Onset Date Resolution Status CKD (chronic kidney disease) stage 4, GFR 15-29 ml/min chronic DM type 1 (diabetes mellitus, type 1) [facility] Work Phone: evaluation note* Diagnosis Onset Date Resolution Status CKD (chronic kidney disease) stage 4, GFR 15-29 ml/min chronic DM type 1 (diabetes mellitus, type 1) chronic Lung nodule, solitary acute Chronic obstructive pulmonary disease chronic Respiratory failure with hypoxia [facility] Work Phone: evaluation note* Diagnosis Onset Date Resolution Status Lung nodule, solitary acute Chronic obstructive pulmonary disease chronic Respiratory failure with hypoxia chronic Atherosclerosis of coronary artery of [place] heart without angina pectoris chronic Essential (primary) hypertension chronic Hyperlipidemia [facility] Work Phone: evaluation note* Diagnosis Onset Date Resolution Status Lung nodule, solitary acute Chronic obstructive pulmonary disease chronic Respiratory failure with hypoxia chronic Atherosclerosis of coronary artery of [place] heart without angina pectoris chronic Essential (primary) hypertension chronic Hyperlipidemia chronic Body mass index (BMI) less than 16.5 chronic CKD (chronic kidney disease) stage 4, GFR 15-29 ml/min chronic DM type 1 (diabetes mellitus, type 1) chronic Nicotine abuse chronic Polyneuropathy due to type 1 diabetes mellitus [facility] Work Phone: Evaluation note* Diagnosis Onset Date Resolution Status Lung nodule, solitary acute Chronic obstructive pulmonary disease chronic Respiratory failure with hypoxia chronic Atherosclerosis of coronary artery of [place] heart without angina pectoris chronic Essential (primary) [...] chronic Respiratory failure with hypoxia [facility] Work Phone: evaluation note* Diagnosis Onset Date Resolution Status Atherosclerosis of coronary artery of [place] heart without angina pectoris chronic Essential (primary) [...] chronic Respiratory failure with hypoxia [facility] Work Phone: evaluation note* Diagnosis SDH (subdural hematoma) (HCC)- Primary Subdural hemorrhage SDH (subdural hematoma) (HCC) Subdural hemorrhage Stage 4 chronic kidney disease (HCC) COPD (chronic obstructive pulmonary disease) (HCC) Chronic airway obstruction, not elsewhere classified Type 1 diabetes mellitus with kidney complication (HCC) Hyperlipidemia Other and unspecified hyperlipidemia Diabetic neuropathy associated with type 1 diabetes mellitus (HCC) [facility] Diagnosis SDH (subdural hematoma) (HCC) Subdural hemorrhage [facility] Diagnosis Hypercapnic respiratory failure (HCC)- Primary Hypercapnic respiratory failure (HCC) Chronic obstructive pulmonary disease, unspecified COPD type (HCC) [facility] Diagnosis Chronic respiratory failure with hypoxia and hypercapnia (HCC) [J96.11, J96.12]- Primary Centrilobular emphysema (HCC) [J43.2] Bilateral pleural effusion [J90] Unspecified pleural effusion Hx of bacterial pneumonia [Z87.01] Cigarette nicotine dependence without complication [F17.210] [facility] Diagnosis Chronic respiratory failure with hypoxia and hypercapnia (HCC) [J96.11, J96.12]- Primary Centrilobular emphysema (HCC) [J43.2] History of recent pneumonia [Z87.01] Other dysphagia [R13.19] Other dysphagia [facility] Diagnosis Chronic respiratory failure with hypoxia and hypercapnia (HCC) [J96.11, J96.12]- Primary Centrilobular emphysema (HCC) [J43.2] Other dysphagia [R13.19] Other dysphagia Hx of bacterial pneumonia [Z87.01] [facility]* Diagnosis SDH (subdural hematoma) [...] Lujan. * Referral: Dr. Christy Huerta (tel: [phone] fax: [phone]). * I am seeing SANDY DENG at the referring provider's request for surgical suitability for renaltransplant candidate listing at [facility]. * History of Present Illness Comments: Ms. [...] Information: * Dr. Viraj No is her Traffic Maintenance Supervisor. * Insulin use for 22 years * [...] * She was not seen by a Credit Card Clerk. * Psych History: * No history * Psychosocial: * Smoking: yes, takes Bupropion. She is cutting back and now smokes 3 cigarettes per day. She has a 50 pack/year history. * Marijuana/Illicits: No * Alcohol: no * Financial: * She is retired. 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 * [...] is vaccinated against COVID-19 but not boosted. [id number] [address] Work Phone: Hospital Discharge instructionsAdditional [...] worsen. Zofran as needed for nausea and vomiting.[facility] Work Phone: Reason for referral (narrative)No reason for referral information availableWPremier Health [facility] Work Phone: Chief Complaint and Reason for [...] diabetes mellitus Atherosclerosis of coronary artery of [place] heart without angina pectoris Chronic obstructive pulmonary disease Cigarette nicotine dependence Chief Complaint 3 M FU CP CP Amb Documentation Amb Documentation OVERDUE FOR OV (2020) COPD COPD Reason for Visit Atherosclerosis of c oronary artery of [place] heart without angina pectoris Chronic obstructive pulmonary disease Cigarette nicotine dependence Atherosclerosis of coronary artery of [place] heart without angina pectoris Essential (primary) hypertension Hyperlipidemia Chief Complaint 3 M FU CP CP Amb Documentation Amb Documentation OVERDUE FOR OV (2020) COPD COPD SMOKER Reason for Visit Atherosclerosis of c oronary artery of [place] heart without angina pectoris Chronic obstructive pulmonary disease Cigarette nicotine dependence Atherosclerosis of coronary artery of [place] heart without angina pectoris Essential (primary) hypertension Hyperlipidemia Chief Complaint CP CP Amb Documentation Amb Documentation OVERDUE FOR OV (2020) COPD COPD SMOKER COPD COPD Reason for Visit Atherosclerosis of c oronary artery of [place] heart without angina pectoris Essential (primary) hypertension [...] with hypoxia Atherosclerosis of coronary artery of [place] heart without angina pectoris Essential (primary) hypertension Hyperlipidemia Chief Complaint FLANK PAIN, ABD PAIN 3 M FU 6 M FU 3 M FU RENAL,PTH, CBC Reason for Visit Lung nodule, solitar y Chronic obstructive pulmonary disease Respiratory failure with hypoxia Atherosclerosis of coronary artery of [place] heart without angina pectoris Essential (primary) hypertension [...] with hypoxia Atherosclerosis of coronary artery of [place] heart without angina pectoris Essential (primary) hypertension [...] Visit Atherosclerosis of c oronary artery of [place] heart without angina pectoris Essential (primary) hypertension [...] tran 2024 3:09pm Chronic obstructive pulmonary disease Jeremias dobbs 2024 3:09pm ESRD on hemodialysis November 04, 2024 3 :09pm Hypertension November 04, 2024 3: 09pm ESRD (end stage renal disease) on dialys is December 02, 2024 2:26pm Atherosclerosis of coronary artery of [place] heart without angina pectoris December 16, 2024 [...] DM type 1 (diabetes mellitus, type 1) [facility] 2024 11:39pm Hypertension January 03, 2025 11:3 9pm Acute hyperkalemia January 03, 2025 11:3 9pm Chronic hypoxemic respiratory failure [facility] 2024 11:39pm AV fistula January 11, [...] 2024 2:26pm Atherosclerosis of coronary artery of [place] heart without angina pectoris December 16, 2024 [...] DM type 1 (diabetes mellitus, type 1) [facility] 2024 11:39pm Hypertension January 03, 2025 11:3 9pm Acute hyperkalemia January 03, 2025 11:3 9pm Chronic hypoxemic respiratory failure [facility] 2024 11:39pm AV fistula January 11, 2025 2:5 5pm DM type 1 (diabetes mellitus, type 1) [facility] 2024 8:40am High cholesterol January 27, [...] Admit Date Atherosclerosis of coronary artery of [place] heart without angina pectoris December 16, 2024 [...] DM type 1 (diabetes mellitus, type 1) [facility] 2024 11:39pm Hypertension January 03, 2025 11:3 9pm Acute hyperkalemia January 03, 2025 11:3 9pm Chronic hypoxemic respiratory failure [facility] 2024 11:39pm AV fistula January 11, 2025 2:5 5pm DM type 1 (diabetes mellitus, type 1) [facility] 2024 8:40am High cholesterol January 27, [...] DM type 1 (diabetes mellitus, type 1) [facility] 2024 8:40am High cholesterol January 27, [...] DM type 1 (diabetes mellitus, type 1) [facility] 2024 8:40am High cholesterol January 27, [...] DM type 1 (diabetes mellitus, type 1) [facility] 2024 8:40am High cholesterol January 27, [...] Will No August 26 8:15pm Power of Customer Orders Clerk No August 26, 2020 8:15pm Advance Directive Response Recorded Date/ Time Advance Directives No February 04 7:01am Living Will No August 26 7:15pm Power of Customer Orders Clerk No August 26, 2020 7:15pm Date Activated [...] Do you have a Healthcare Power of Customer Orders Clerk? No August 26, 2020 8:15pm Living Will No April 14, 2024 10:45pm Do you have a Healthcare Power of Customer Orders Clerk? No April 14, 2024 10:45pm Advance Directives No January 10 025 9:10am Living Will No July 24, 2024 12:39am Do you have a Healthcare Power of Customer Orders Clerk? No July 24, 2024 12:39am Living Will No November 20 8:06pm Do you have a Healthcare Power of Customer Orders Clerk? No November 20, 2024 8:06pm Living Will No December 14 2:25pm Do you have a Healthcare Power of Customer Orders Clerk? No December 14, 2024 2:25pm Living Will No January 04, 2025 1:39am Do you have a Healthcare Power of Customer Orders Clerk? No January 04, 2025 1:39am Advance Directive Response Recorded Date/ Time Living Will No April 14, 2024 10:45pm Do you have a Healthcare Power of Customer Orders Clerk? No April 14, 2024 10:45pm Advance Directives No January 10 025 9:10am Living Will No December 14 2:25pm Do you have a Healthcare Power of Customer Orders Clerk? No December 14, 2024 2:25pm Living Will No January 04, 2025 1:39am Do you have a Healthcare Power of Customer Orders Clerk? No January 04, 2025 1:39am Advance Directive Response Recorded Date/ Time Living Will No April 14, 2024 10:45pm Do you have a Healthcare Power of Customer Orders Clerk? No April 14, 2024 10:45pm Advance Directives No January 10 025 9:10am Living Will No December 14 2:25pm Do you have a Healthcare Power of Customer Orders Clerk? No December 14, 2024 2:25pm Living Will No January 04, 2025 1:39am Do you have a Healthcare Power of Customer Orders Clerk? No January 04, 2025 1:39am Do you have a Healthcare Power of Customer Orders Clerk? No April 09, 2025 12:26pm Advance Directive Response Recorded Date/ Time Advance Directives No January 10 9:10am Do you have a Healthcare Power of Customer Orders Clerk? No April 09, 2025 12:26pm Do you have a Healthcare Power of Customer Orders Clerk? No May 08, 2025 8:07am Advance Directive Response Recorded Date/ Time Do you have a Healthcare Power of Customer Orders Clerk? No April 09, 2025 12:26pm Do you have a Healthcare Power of Customer Orders Clerk? No May 08, 2025 8:07am Advance Directives No January 10 9:10am Advance Directive Response Recorded Date/ Time Do you have a Healthcare Power of Customer Orders Clerk? No May 20, 2025 9:31pm Do you have a Healthcare Power of Customer Orders Clerk? No April 09, 2025 12:26pm Do you have a Healthcare Power of Customer Orders Clerk? No May 08, 2025 8:07am Advance Directives No January 10 9:10am Summary Purpose Reason for Referral Specialty Diagnoses / Procedures Referred By Contac t Referred To Contact Radiology Diagnoses SDH (subdural hematoma) (HCC) Procedures CT head wo IV contrast Madeline Montalvo, BARREL RIBS SOLDERER - CLEARANCE CUTTER [address] [place] [address] Referral ID Status Reason Start Date Expiration Date V isits Requested Visits Authorized [id number] Authorized 07/27/2024 07/27/2025 1 1 Specialty Diagnoses / Procedures Referred By Contac t Referred To Contact Radiology Diagnoses SDH (subdural hematoma) (HCC) Procedures CT head wo IV contrast Elieser Solis MD [address] [place] [address] Referral ID Status Reason Start Date Expiration Date Visits Re quested Visits Authorized [id number] Closed 07/27/2024 09/10/2024 1 1 Additional Source [...] DATE CREATED AUTHOR AUTHOR'S ORGANIZ ATION 06/03/2022 [facility] DATE CREATED AUTHOR AUTHOR'S ORGANIZ ATION 12/18/2024 [facility] DATE CREATED AUTHOR AUTHOR'S ORGANIZ ATION 12/31/2024 [facility] DATE CREATED AUTHOR AUTHOR'S ORGANIZ ATION 05/25/2025 [facility] Care Teams (unrecognized sec tion and content) [...] Refe rring Provider Active Jeanna Davis NP, FAN MAIL EDITOR-C Attending Provider Active Team Status: Active Member [...] Active Member Role Status Dates Jeanna Davis FAN MAIL EDITOR, FAN MAIL EDITOR-C Referring Provider, Other Pr ovider Active Dr. Sin Lujan MD Primary Care Provider Activ e Dr. Rios Cordova MD Attending Provider Active Team Status: Inactive Member Role Status Dates Jeanna Davis FAN MAIL EDITOR, FAN MAIL EDITOR-C Attending Provider, Referrin g Provider Active Dr. Sin Lujan MD Primary Care Provider Activ e Team Status: Inactive Member Role Status Dates Dr. Sin Lujan MD Primary Care Provider Activ e Dr. Christy Huerta DO Attending Provider Active Team Status: Active Member Role Status Dates Jeanna Davis FAN MAIL EDITOR, FAN MAIL EDITOR-C Referring Provider, Other Pr ovider Active Dr. [...] Primary Care Provider Activ e Dr. Rios oCrdova MD Attending Provider, Referring Pr ovider Active Team Status: Active Member Role Status Dates Dr. Sin Lujan MD Primary Care Provider Activ e Dr. Christy Huerta DO Attending Provider Active Team Status: Inactive Member Role Status Dates Dr. Sin Lujan MD Primary Care Provider Activ e Jeanna Davis FAN MAIL EDITOR, FAN MAIL EDITOR-C Attending Provider Active Team Status: Inactive Member Role Status Dates Dr. Sin Lujan MD Primary Care Provider, Refe rring Provider Active Kena Sandy FAN MAIL EDITOR, FAN MAIL EDITOR-C Attending Provider Active Team Status: Inactive Member Role Status Dates Dr. Sin Lujan MD Primary Care Provider Activ e Jeanna Davis FAN MAIL EDITOR, FAN MAIL EDITOR-C Attending Provider, Referrin g Provider Active Team Status: Active Member Role Status Dates Dr. Bird Lujan MD Family Provider Active Dr. Bird Lujan MD Primary Care Provider Acti ve Team Status: Inactive Member Role Status Dates Dr. Bird Lujan MD Primary Care Provider, Ref erring Provider Active Kena Sandy FAN MAIL EDITOR, FAN MAIL EDITOR-C Attending Provider Active Team Status: Inactive Member Role Status Dates Dr. Bird Lujan MD Primary Care Provider, Ref erring Provider Active Brenda Medrano FAN MAIL EDITOR-C Attending Provider Active Team Status: Inactive Member Role Status Dates Dr. Bird Lujan MD Primary Care Provider, Ref erring Provider Active Jeanna Davis FAN MAIL EDITOR, FAN MAIL EDITOR-C Attending Provider Active Team Status: Inactive Member Role Status Dates Dr. Bird Lujan MD Primary Care Provider Acti ve Dr. Christy Huerta DO Attending Provider Active Team Status: Inactive Member Role Status Dates Dr. Bird Lujan MD Primary Care Provider Acti ve Jeanna Davis FAN MAIL EDITOR, FAN MAIL EDITOR-C Attending Provider, Referrin g Provider Active Team Status: Inactive Member Role Status Dates Dr. Bird Lujan MD Primary Care Provider Acti ve Dr. Sherice Skelton , DPM Attending Provider, Referring Pr ovider Active Finance Clerk Relationship Specialty Start Date End Date Bird Lujan [address] [place] [address] PCP - General Family Medicine 07/26/24 Finance Clerk Relationship Specialty Start Date End Date Bird Lujan [address] [place] [address] PCP - General Family Medicine 07/26/24 Param Sousa, RN Registered Nurse Coarse Wire Drawer Manager 08/11/24 Finance Clerk Relationship Specialty Start Date End Date Bird Lujan [address] [place] [address] PCP - General Family Medicine 07/26/24 Param Sousa, RN Registered Nurse Coarse Wire Drawer Manager 08/11/2409/26 Finance Clerk Relationship Specialty Start Date End Date Bird Lujan [address] [place] [address] PCP - General Family Medicine 07/26/24 Finance Clerk Relationship Specialty Start Date End Date Bird Lujan [address] [place] [address] PCP - General Family Medicine 07/26/24 Finance Clerk Relationship Specialty Start Date End Date Bird Lujan [address] [facility] [address] [place] [address] PCP - General Family Medicine 07/26/24 Param Sousa, BO Registered Nurse Coarse Wire Drawer Manager 08/11/2409/26 Finance Clerk Relationship Specialty Start Date End Date Bird Lujan MD [address] [facility], [place] [address] PCP - General 10/17/08 Team Status: Active [...] 2024 End: October 16, 2024 Jeanna Davis FAN MAIL EDITOR, FAN MAIL EDITOR-C Attending Provider Active Start: October 16, 2024 End: October 16, 2024 Jeanna Davis FAN MAIL EDITOR, FAN MAIL EDITOR-C Referring Provider Active Start: October 16, 2024 [...] 2024 End: November 04, 2024 Jeanna Davis FAN MAIL EDITOR, FAN MAIL EDITOR-C Attending Provider Active Start: November 04, 2024 [...] End: December 16, 2024 Mynor Anthony NP, FAN MAIL EDITOR-C Attending Provider Active S tart: December 16, [...] End: January 11, 2025 Jeanna Davis NP, FAN MAIL EDITOR-C Attending Provider Active Start: January 11, 2025 End: January 11, 2025 Jeanna Davis FAN MAIL EDITOR, FAN MAIL EDITOR-C Referring Provider Active Start: January 11, 2025 [...] 2025 End: January 11, 2025 Jeanna Davis FAN MAIL EDITOR, FAN MAIL EDITOR-C Attending Provider Active Start: January 11, 2025 End: January 11, 2025 Jeanna Davis FAN MAIL EDITOR, FAN MAIL EDITOR-C Referring Provider Active Start: January 11, 2025 [...] 2025 End: March 22, 2025 Dr. Bird Lujna MD Referring Provider Active Start: March 22, [...] End: May 18, 2025 Irais Justice , FAN MAIL EDITOR-C Attending Provider Active Start: May 18, 2025 [...] Ino Conte MD [address] [place] [phone] [address] [place] [address] Referral ID Status Reason Start Date Expiration Date Visits Re quested Visits Authorized [id number] 1 1 Specialty Diagnoses / Procedures Referred By Contac t Referred To Contact Radiology Diagnoses SDH (subdural hematoma) (HCC) Procedures CT head wo IV contrast Elieser Solis MD [address] [place] [address] [address] [place] [address] Referral ID Status Reason Start Date Expiration Date Visits Re quested Visits Authorized [id number] Closed 07/27/2024 09/10/2024 1 1 Reason Comments [...] Tyler MD [address] [place] [address] Phone: tel: fax: [facility] Medical Intensive Care Unit MICU [address] [place] [address] Phone: tel: Referral ID Status Reason Start Date Expiration Date Visits Re quested Visits Authorized [id number] 1 1 Reason Comments Referral - Kidney [...] Fri07/26/24 at 2000 0846 (Given - Provider: Bleu Middleton RN)2126 (Given - Provider: Joycelyn Welch [...] JUDE) 0905 (Given - Provider: Mary Mcintosh, PLANT INSPECTOR)1433 (Given - Provider: Mary Mcintosh, PLANT INSPECTOR)2239 (Given - Provider: Marylu Montanez RCP) 0806 [...] PRN, mild pain (1-3), fever, Starting on [place] 08/01/24 at 1331, If inadequate response within [...] for opioid reversal - MUST notify director prison provider immediately after first dose, may give [...] fever, Starting on 08/01/24 at 1331, Give RI if unable to administer by mouth or [...] Provider: Calixto Sanchez RN)1215 (Given - Provider: Maryul Zamudio RN)1837 (Given - Provider: Marylu Zamudio [...] Starting on Fri08/17/24 at 1646 sodium chloride ([place]) 0.65 % nasal spray 1 spray 1 [...] informatio n is protected by the [facility] Confidentiality of Alcohol and Drug Abuse [...] BE BASED ON THE PRIMARY CLINICAL RECORDS. [facility]. provides no warranty or guarantee of the accuracy or completeness of information in this document."
[2025-05-28] MEDS: 0.9% Saline Lock 10 ML Syringe IV ×2 (05:42→17:35)
[2025-05-28 06:24] LABS: Hematocrit 32.7 % (37-47); Hemoglobin 9.7 g/dL (12.0-15.0); Immature Granulocytes Count 0.030 X10^3/uL (0.0-0.0); Mean Corp Hgb Conc 29.7 g/dL (32-36); Mean Corpuscular Volume 93.7 fL (81-99); Mean Platelet Vol. 10.4 fl (6.2-12.0); NRBC Flagged by Analyzer 0 % (0-5); POSITIVE DIFFERENTIAL YES; Platelet Count 142 K/mm3 (150-450); RBC Distribution Width CV 14.5 % (11.6-14.6); RBC Distribution Width SD 48.7 fl (35.1-43.9); Red Blood Count 3.49 M/mm3 (4.2-5.4); White Blood Count 3.8 K/mm3 (4.4-11.0)
[2025-05-28 06:42] LABS: Anion Gap 12 (5-15); BUN 55 mg/dL (4-19); BUN/Creat Ratio 13.6 RATIO (10-20); Calcium,Total 8.3 mg/dL (7.6-11.0); Carbon Dioxide 24.3 mmol/L (21.0-32.0); Chloride 105 mmol/L (98-108); Estimated Creatinine Clearance 10.43 ml/min (50-250); Glucose 176 mg/dL (70-99); Potassium 4.8 mmol/L (3.3-5.1)
[2025-05-28] MEDS: Aspirin E.C. 81 MG Tablet PO (11:46)
[2025-05-28] MEDS: Heparin Injection (Vial) 5,000 UNIT/ML VIAL 5000 UNIT SC ×2 (11:46→21:11)
[2025-05-28] MEDS: SEVELAMER CARBONATE 800 MG TABLET PO ×2 (11:49→17:11)
[2025-05-28] MEDS: ROFLUMILAST 500 MCG TABLET PO (11:56)
--- NOTE | 2025-05-28 12:01 | NURSING ---
successfully accessed pt's fistula for HD at 0855 and began treatment. at 0857 hd machine began to alarm for air in arterial line. after troubleshooting the machine, this rn noticed air bubbles in arterial line coming from pt. . disconnected machine from line and manually aspirated arterial line and continued to see air bubbles. attempted to reposition cannula with no success. discussed case with dre medina, clinical rn manager and decided to decannulate and abort current treatment. decannulated w/no issues. after priming a new cartridge, this rn reaccessed fistula. distal access successful. proximal cannula able to get flash, but unable to aspirate. decannulated and notified dr fontenot of unsuccessful attempt to dialyze patient.
--- NOTE | 2025-05-28 15:23 | AVDS_ITS ---
Reason For Study Reason For Study: S/P Rt AVF for Dialysis Right Velocities Inflow = 252.8/106.4 cm/s Inflow = 1263 ml/min Prox Anastomosis = 508/206 cm/s Prox Anastomosis = 1189 ml/min Prox Graft = 554.4/301.9 cm/s Prox Graft = 1243 ml/min Mid Graft = 125.1/66.3 cm/s Mid Graft = 1438 ml/min Dist Graft = 131.9/54.1 cm/s Dist Graft = 919.0 ml/min Outflow = 111.1/61.9 cm/s Outflow = 669.9 ml/min. VL/AV Fistula/Dialysis Graft Scan Interpretation Summary Right upper arm fistula patent with >50% stenosis proximal. Otherwise adequate caliber/depth. Adequate flow volumes Ordering Physician: Khai Bullard Referring Physician: Bird Lujan Performed By: Abdulkadir Schaefer RVT
--- NOTE | 2025-05-28 16:16 | PCM.HOSP.N ---
Hospitalist Note Patient was seen and examined today, her fistula was not functioning properly and nephrology was unable to do dialysis today, I talked with Dr. Christy Huerta about the nonfunctioning fistula, I also told her that I talked with vascular surgery who asked me to obtain a duplex of the fistula, they would not be able to see the patient however until 05/30/2025. Dr. Huerta requested that I have a tunneled dialysis catheter placed, we will be unable to dialyze the patient this weekend so that tunneled catheter placement will be on 05/30/2025. On my examination today, patient has no inspiratory or expiratory wheezing, I think it is unlikely that she has a flareup of COPD, her chest x-ray was read out as vascular congestion and pulmonary fibrosis or possible pneumonitis-I do not think the patient has pneumonitis. I have elected to drop her Solu-Medrol off and place her on budesonide aerosol treatments, I elected to place her on Zithromax in case she does have a flareup of COPD. Patient is on her home oxygen level which is 2 L, I had a discussion with her and her in the room today and she knows she will have to stay in the hospital into the next week.
--- NOTE | 2025-05-28 17:45 | CASEMGMT ---
RN?CM?ASSESSMENT ? RN?CM?to room to meet with patient for initial transition planning/care coordination?assessment.?RN?CM?introduced self and role at [facility].? Pt voices understanding and consents to?assessment?at this time.? Pt sitting up in chair in no distress at this time.? in room visiting. Pt is A/O at this time and answers all questions appropriately.?? Care providers, pharmacy, and demographics verified/updated at this time. ? PCP: Dr Lujan Specialists: Dr Huerta-nephreza, Dr No-leatha, [facility]/Cardio, [facility] pul. HD: Pt does home HD through [facility] Preferred Pharmacy: [facility] Insurance: [facility], [facility] [place] Prescription Benefit:?Yes, Hector LNOK: , Jose. Dtr, Bobbi Living Arrangements: Lives w/ in 2-story home w/3 steps to enter w/railing. FFSU. assists pt on the stairs. Indep w/ADL's. manages medications and does home mgnt tasks. Transportation:?Pt does not drive. provides transportation. DME: Pt has the following DME:?shower chair, cane, walker, BIPAP, nebulizer, HD machine, and home O2 through [employer] w/portability. Pt states she wears O2 @ 3 L/M continuously and bleeds-in via PAP. can bring in port O2 tank @ dc. HHC/OP therapy: Pt denies the need for HHC or OP therapy @ discharge. ? Pt wishes to return home and states has no concerns with going home at time of discharge. CM?to follow for any further discharge planning/needs.? Pt and voice no further concerns/needs at this time.? ? PLAN:??Home w/spousal support and discharge plans in place. Follow for any changes or needs w/Home HD. Follow for any home O2 changes @ dc. ? Valdo DENTN?RN?CM
--- NOTE | 2025-05-28 17:51 | CON.PCM.RE_ITS ---
Assessment & Plan Assessment/Plan (1) ESRD (end stage renal disease) on dialysis: PLAN: due to diabetes on home hemodialysis 4x/wk. Last dialysis Friday. Difficulty with access use Friday and Today. Will try Friday using AVF, otherwise will need tunneled catheter, fistulogram with vascular evaluation of AVF (2) Dialysis AV fistula malfunction: (3) Intermittent chest pain: (4) Dyspnea: PLAN: oxygenation stable (5) Essential (primary) hypertension: (6) Chronic obstructive pulmonary disease: QUALIFIERS: COPD type: unspecified COPD Qualified Code(s): J44.9 - Chronic obstructive pulmonary disease, unspecified PLAN: hx tobacco use (7) DM type 1 (diabetes mellitus, type 1): QUALIFIERS: Chronic kidney disease stage: stage 4 (severe) D iabetes mellitus complication detail: with chronic kidney disease Diabetes mellitus complication status: with kidney complications Qualified Code(s): E 10.22 - Type 1 diabetes mellitus with diabetic chronic kidney disease; N18.4 - Chronic kidney disease, stage 4 (severe) (8) Lung nodule, multiple: (9) Atherosclerosis of coronary artery of [place] heart without angina pectoris: QUALIFIERS: Coronary Disease-Associated Artery/Lesion type: [place] artery Qualified Code(s): I25.10 - Atherosclerotic heart disease of [place] coronary artery without angina pectoris (10) Hypertension: QUALIFIERS: Hypertension type: unspecified Qualified Code(s): I10 - Essential (primary) hypertension HPI Consult Data Date of Consult: 05/30/25 HPI Narrative Reason for Consultation: ESRD on home hemodialysis 4x/wk HPI Narrative: SANDY ELLIS, is a 64 F who presents with increased shortness of breath. She has ESRD on home hemodialysis, last treatment Friday. She could not receive her dialysis on Friday due to access issues. No push/pull of blood with needles after good flashback. She was unable to receive her dialysis today due to access issues again. Dialysis nurse was not able to push/pull blood as well. Patient continues to have mild dyspnea with stable oxygenation on 2L NC. She has oliguria. Vascular surgeon notified of access issues. Tunneled dialysis catheter to be placed Friday if still have problems with access. [facility], [facility] Medical History On home oxygen therapy Wears hearing aid Wears glasses Post-menopausal Insulin dependent diabetes mellitus Diabetes History of renal dialysis History of renal disease Anemia High cholesterol Easy bruising Excessive bleeding Injury of head and neck Former smoker Emphysema, unspecified History of edema History of echocardiogram History of stress test Cardiology follow-up encounter Osteoporosis Presence of insulin pump Severely underweight adult Lung nodule, multiple Nicotine abuse Lung nodule, solitary Fissure in skin of foot Drayton's sign present Tobacco abuse CKD (chronic kidney disease) stage 4, GFR 15-29 ml/min Body mass index (BMI) less than 16.5 Underweight Polyneuropathy due to type 1 diabetes mellitus Stage 4 chronic kidney disease due to type 1 diabetes mellitus Respiratory failure with hypoxia Smoking greater than 30 pack years Anemia Diabetic nephropathy, type I Hyperkalemia Renal insufficiency Diabetes Chronic obstructive pulmonary disease Essential (primary) hypertension Hypersomnia Anxiety Depression Atherosclerosis of coronary artery of [place] heart without angina pectoris NSTEMI (non-ST elevated myocardial infarction) (01/12/18) DM type 1 (diabetes mellitus, type 1) Hyperlipidemia COPD (chronic obstructive pulmonary disease) Home Medications ?Medication ?Instructions ?Recorded ?Last Taken ?Type simvastatin 40 mg tablet 40 mg PO QHS cholesterol 01/03/25 History albuterol sulfate 2.5 mg/3 mL 2.5 mg (3 mL) inhalation Q2H PRN 06/23/18 Unknown Rx (0.083 %) solution for nebulization PRN dyspnea, wheez ing ##1 aspirin 81 mg tablet,delayed 81 mg PO DAILY heart heal th 12/31/19 01/03/25 History release oxygen See Rx Instructions NASAL .C OMPLEX 12/03/23 01/04/25 History O2 therapy ipratropium 0.5 mg-albuterol 3 mg 3 ml inhalation Q4H PRN PRN SOB 12/29/23 Unknown Rx (2.5 mg base)/3 mL nebulization &/OR WHEEZING #180 mL soln denosumab 60 mg/mL subcutaneous 60 mg subcut [id number] bone health 06/10/24 07/09/24 Rx syringe (Prolia) #1 mL clopidogrel 75 mg tablet 75 mg PO DAILY anti platelet #90 07/26/24 01/03/25 Rx tabs nitroglycerin 0.4 mg sublingual 0.4 mg sublingual Q5-1 5M PRN chest 10/21/24 Unknown Rx tablet pain #25 tabs metoprolol tartrate 50 mg tablet 50 mg PO BID blood pr essure #180 11/11/24 01/03/25 Rx tabs amlodipine 10 mg tablet (Norvasc) 10 mg PO DAILY blood pressure 30 11/20/24 01/03/25 Rx days #30 tabs buspirone 7.5 mg tablet 7.5 mg PO DAILY Antianxiety 12/14/24 01/03/25 History sevelamer carbonate 800 mg tablet 800 mg PO TID To low er Phosphorus 12/14/24 01/03/25 History cefdinir 300 mg capsule 300 mg PO BID 5 days #10 cap s 01/06/25 Unknown Rx pseudoephedrine-guaifenesin ER 60 1 tab PO BID cold sy mptoms #14 tabs 01/06/25 Unknown Rx mg-600 mg tablet,extend release 12hr (Mucinex D) blood-glucose sensor (FreeStyle #6 ea 02/09/25 Unknown Rx Eileen 2 Plus Sensor device) insulin pump cart,auto,BT,G6/L #30 ea 02/09/25 Unknown Rx (Omnipod 5 (G6/Eileen 2 Plus) subcutaneous cartridge) albuterol sulfate 90 mcg/actuation 2 puff inhalation Q 6H PRN PRN 03/14/25 Unknown Rx aerosol inhaler Cough #8.5 grams blood-glucose sensor (Dexcom G6 #3 ea 04/07/25 Unknown Rx Sensor device) blood-glucose transmitter (Dexcom #1 ea 04/07/25 Unkno wn Rx G6 Transmitter device) insulin lispro 100 unit/mL 60 unit (0.6 mL) continuous 04/07/25 Unknown Rx subcutaneous solution (Humalog subcutaneous infusion . continuous U-100 Insulin) #54 mL ondansetron 4 mg disintegrating 4 mg PO Q8H PRN PRN Na usea #10 tabs 05/08/25 Unknown Rx tablet roflumilast 500 mcg tablet 500 mcg PO DAILY breathing #30 tabs 05/11/25 Unknown Rx (Daliresp) fluticasone fur. 200 mcg-umeclid 1 inh inhalation HAJA Y breathing 05/18/25 Unknown Rx 62.5 mcg-vilant 25 mcg #3 ea inhalat.powder (Trelegy Ellipta) Allergy/AdvReac Type Severity Reaction Status Date / Time No Known Allergies Allergy Verified 05/27/25 19:11 Family History Mother Heart disease COPD (chronic obstructive pulmonary disease) Lupus Daughter Growth disorder Down syndrome Fibromyalgia Grandfather Colon cancer Diabetes Grandmother Heart disease CVA (cerebral vascular accident) Diabetes Pulmonary disease Sister Hypertension Kidney disease Surgical History Hx of surgical procedure History of cardiac catheterization History of coronary artery stent placement Hx of surgical procedure H/O: Hx of appendectomy H/O: hysterectomy History of coronary artery stent placement (02/04/18) Social History household members: spouse housing: house pets and animals: Yes pets and animals: cat(s) Smoking Status: Former smoker how long ago did patient quit smoking: Since 05/2024 cut back and has only had ~ 10 cigarettes since then. quit status: considering quitting alcohol intake: never substance use type: does not use caffeine: Yes Type: carbonated beverages Number of servings: 4 what type of physical activity do you participate in: none seatbelt use: always do you feel safe at home: Yes ROS Constitutional Constitutional: Reports weakness; Denies chills or fever(s) ENT HEENT: Denies nasal congestion Cardiovascular Cardiovascular: Reports chest pain and dyspnea on exertion; Denies edema Respiratory/Chest Respiratory/Chest: Reports dyspnea on exertion, portable oxygen @ home and shortness of breath at rest; Denies wheezing Gastrointestinal Gastrointestinal: Reports anorexia; Denies abdominal pain, diarrhea, nausea or vomiting Genitourinary Genitourinary: Reports oliguria; Denies change in urinary stream Integumentary Integumentary: Denies rash Neurologic Neurologic: Reports weakness; Denies confusion or focal weakness Psychiatric Psychiatric: Reports anxiety and depression Hematologic/Lymphatic Hematologic/Lymphatic: Reports anemia, easy bleeding and easy bruising Physical Exam Const alert and oriented x3 General Appearance: anxious and frail Nutritional Appearance: thin Resp Auscultation: crackles bilateral base Cardio regular rate Cardio Narrative: murmur GI non-tender and non-distended Auscultation: normoactive bowel sounds Extremity no clubbing, cyanosis or edema Extremity Narrative: AVF with good thrill and bruit General Extremity: AV fistula Neuro moves all extremities and no focal motor deficits Motor Exam: tremor Psych cooperative Lab / Micro Data 05/30/25 05:05 05/30/25 05:05 Labs: Laboratory Results - last 24 hr 05/27/25 19:26: WBC 5.0, RBC 3.47 L, Hgb 9.8 L, Hct 32.2 L, MCV 92.8, MCH 28.2, MCHC 30.4 L, RDW Std Deviation 49.4 H, RDW Coeff of Iron 14.6, Plt Count 169, MPV 11.4, Immature Gran % (Auto) 0.400, Neut % (Auto) 69.6, Lymph % (Auto) 16.0 L, [place] % (Auto) 10.0, Eos % (Auto) 3.4, Baso % (Auto) 0.6, Absolute Neuts (auto) 3.5, Absolute Lymphs (auto) 0.80 L, Nucleated RBC % 0, Sodium Cancelled, Potassium Cancelled, Chloride Cancelled, Carbon Dioxide Cancelled, Anion Gap Cancelled, BUN Cancelled, Creatinine Cancelled, Estim Creat Clear Calc Cancelled, Est GFR (MDRD) Non-Af Cancelled, BUN/Creatinine Ratio Cancelled, Glucose Cancelled, Calcium Cancelled, Troponin T High Sens Cancelled 05/27/25 21:15: Sodium 142, Potassium 5.0, Chloride 108, Carbon Dioxide 24.1, Anion Gap 10, BUN 53 H, Creatinine 3.91 H, Estim Creat Clear Calc 10.71 L, Est GFR (MDRD) Non-Af 12 L, BUN/Creatinine Ratio 13.4, Glucose 109 H, Calcium 8.3, T roponin T High Sens 135 H* 05/27/25 23:04: Troponin T Hi Sens 2 Hr 133 H* 05/28/25 01:56: POC Glucose 156 H 05/28/25 05:30: WBC 3.8 L, RBC 3.49 L, Hgb 9.7 L, Hct 32.7 L, MCV 93.7, MCH 27.8, MCHC 29.7 L, RDW Std Deviation 48.7 H, RDW Coeff of Iron 14.5, Plt Count 142 L, MPV 10.4, Immature Gran % (Auto) 0.800, Neut % (Auto) 90.5 H, Lymph % (Auto) 5.5 L, [place] % (Auto) 2.1, Eos % (Auto) 0.3, Baso % (Auto) 0.8, Absolute Neuts (auto) 3.5, Absolute Lymphs (auto) 0.21 L, Nucleated RBC % 0, Sodium 141, Potassium 4.8, Chloride 105, Carbon Dioxide 24.3, Anion Gap 12, BUN 55 H, C reatinine 4.05 H, Estim Creat Clear Calc 10.43 L, Est GFR (MDRD) Non-Af 12 L, BUN/Creatinine Ratio 13.6, Glucose 176 H, Calcium 8.3 05/28/25 12:05: POC Glucose 229 H Rhythm Strip Rhythm Strip: Sinus Rhythm Rate: 70 Ectopy: None Imaging Radiology Impression Chest X-Ray 05/27/25 19:50 IMPRESSION: Pulmonary findings as above. Reading Location: [id number]
[2025-05-28] MEDS: Budesonide Respules 0.5 MG/2 ML AMPUL.NEB. INHALATION (19:02)
--- NOTE | 2025-05-28 19:34 | PCM.HOSP.N ---
Hospitalist Note Patient has insulin pump in her blood sugars were in the 300s. Patient requesting removal of her insulin pump and for us to manage her diabetes while she is here. Will discontinue the insulin pump and start her on basal, prandial and sliding scale insulin. Basal 20 twice daily, prandial 10 3 times daily with meals as well as a low-dose sliding scale.
--- NOTE | 2025-05-28 19:59 | EX.PCM.CON.S ---
Assessment & Plan Assessment/Plan (1) Dialysis AV fistula malfunction: (2) ESRD (end stage renal disease) on dialysis: PLAN: Plan Plan for tunneled dialysis catheter placement Friday?time to be determined. Discussed procedure including risk not limited to bleeding, infection, catheter malfunction. Patient has been over the questions time. Brielle Turner M.D. Pager: [phone] [facility] [address] [place] [address], Outpatient [place], [address] [place] [address] Office: [phone] HPI Consult Data Date of Consult: 05/29/25 HPI Narrative HPI Narrative: SANDY ELLIS, is a 64 F who presents due to being unable to do dialysis through her right upper extremity fistula. Patient does do home IV dialysis however her was able to access the arterial as well as venous initially and that he had high pressure readings on the venous and was not getting good flows. Came into the hospital they attempted here and unable to get good flows on the venous as well. Consulted for temporary dialysis catheter. Patient had her previous 1 that was her right IJ removed about a month and a half ago per patient and her . Patient is on aspirin and Plavix which have been held for tunnel dialysis catheter placement Friday. [facility] Medical History On home oxygen therapy Wears hearing aid Wears glasses Post-menopausal Insulin dependent diabetes mellitus Diabetes History of renal dialysis History of renal disease Anemia High cholesterol Easy bruising Excessive bleeding Injury of head and neck Former smoker Emphysema, unspecified History of edema History of echocardiogram History of stress test Cardiology follow-up encounter Osteoporosis Presence of insulin pump Severely underweight adult Lung nodule, multiple Nicotine abuse Lung nodule, solitary Fissure in skin of foot Adrian's sign present Tobacco abuse CKD (chronic kidney disease) stage 4, GFR 15-29 ml/min Body mass index (BMI) less than 16.5 Underweight Polyneuropathy due to type 1 diabetes mellitus Stage 4 chronic kidney disease due to type 1 diabetes mellitus Respiratory failure with hypoxia Smoking greater than 30 pack years Anemia Diabetic nephropathy, type I Hyperkalemia Renal insufficiency Diabetes Chronic obstructive pulmonary disease Essential (primary) hypertension Hypersomnia Anxiety Depression Atherosclerosis of coronary artery of [place] heart without angina pectoris NSTEMI (non-ST elevated myocardial infarction) (01/12/18) DM type 1 (diabetes mellitus, type 1) Hyperlipidemia COPD (chronic obstructive pulmonary disease) Home Medications ?Medication ?Instructions ?Recorded ?Last Taken ?Type simvastatin 40 mg tablet 40 mg PO QHS cholesterol 06/21/18 01/03/25 History albuterol sulfate 2.5 mg/3 mL 2.5 mg (3 mL) inhalation Q2H PRN 06/23/18 Unknown Rx (0.083 %) solution for nebulization PRN dyspnea, wheezing ##1 aspirin 81 mg tablet,delayed 81 mg PO DAILY heart health 12/31/19 01/03/25 History release oxygen See Rx Instructions NASAL .COMPLEX 12/03/23 01/04/25 History O2 therapy ipratropium 0.5 mg-albuterol 3 mg 3 ml inhalation Q4H PRN PRN SOB 12/29/23 Unknown Rx (2.5 mg base)/3 mL nebulization &/OR WHEEZING #180 mL soln denosumab 60 mg/mL subcutaneous 60 mg subcut [id number] bone health 06/10/24 07/09/24 Rx syringe (Prolia) #1 mL clopidogrel 75 mg tablet 75 mg PO DAILY anti platelet #90 07/26/24 01/03/25 Rx tabs nitroglycerin 0.4 mg sublingual 0.4 mg sublingual Q5-15M PRN chest 10/21/24 Unknown Rx tablet pain #25 tabs metoprolol tartrate 50 mg tablet 50 mg PO BID blood pressure #180 11/11/24 01/03/25 Rx tabs amlodipine 10 mg tablet (Norvasc) 10 mg PO DAILY blood pressure 30 11/20/24 01/03/25 Rx days #30 tabs buspirone 7.5 mg tablet 7.5 mg PO DAILY Antianxiety 12/14/24 01/03/25 History sevelamer carbonate 800 mg tablet 800 mg PO TID To lower Phosphorus 12/14/24 01/03/25 History cefdinir 300 mg capsule 300 mg PO BID 5 days #10 caps 01/06/25 Unknown Rx pseudoephedrine-guaifenesin ER 60 1 tab PO BID cold symptoms #14 tabs 01/06/25 Unknown Rx mg-600 mg tablet,extend release 12hr (Mucinex D) blood-glucose sensor (FreeStyle #6 ea 02/09/25 Unknown Rx Eileen 2 Plus Sensor device) insulin pump cart,auto,BT,G6/L #30 ea 02/09/25 Unknown Rx (Omnipod 5 (G6/Eileen 2 Plus) subcutaneous cartridge) albuterol sulfate 90 mcg/actuation 2 puff inhalation Q6H PRN PRN 03/14/25 Unknown Rx aerosol inhaler Cough #8.5 grams blood-glucose sensor (Dexcom G6 #3 ea 04/07/25 Unknown Rx Sensor device) blood-glucose transmitter (Dexcom #1 ea 04/07/25 Unknown Rx G6 Transmitter device) insulin lispro 100 unit/mL 60 unit (0.6 mL) continuous 04/07/25 Unknown Rx subcutaneous solution (Humalog subcutaneous infusion .continuous U-100 Insulin) #54 mL ondansetron 4 mg disintegrating 4 mg PO Q8H PRN PRN Nausea #10 tabs 05/08/25 Unknown Rx tablet roflumilast 500 mcg tablet 500 mcg PO DAILY breathing #30 tabs 05/11/25 Unknown Rx (Daliresp) fluticasone fur. 200 mcg-umeclid 1 inh inhalation DAILY breathing 05/18/25 Unknown Rx 62.5 mcg-vilant 25 mcg #3 ea inhalat.powder (Trelegy Ellipta) Allergy/AdvReac Type Severity Reaction Status Date / Time No Known Allergies Allergy Verified 05/27/25 19:11 Family History Mother Heart disease COPD (chronic obstructive pulmonary disease) Lupus Daughter Growth disorder Down syndrome Fibromyalgia Grandfather Colon cancer Diabetes Grandmother Heart disease CVA (cerebral vascular accident) Diabetes Pulmonary disease Sister Hypertension Kidney disease Surgical History Hx of surgical procedure History of cardiac catheterization History of coronary artery stent placement Hx of surgical procedure H/O: Hx of appendectomy H/O: hysterectomy History of coronary artery stent placement (02/04/18) Social History household members: spouse housing: house pets and animals: Yes pets and animals: cat(s) Smoking Status: Former smoker how long ago did patient quit smoking: Since 05/2024 cut back and has only had ~ 10 cigarettes since then. quit status: considering quitting alcohol intake: never substance use type: does not use caffeine: Yes Type: carbonated beverages Number of servings: 4 what type of physical activity do you participate in: none seatbelt use: always do you feel safe at home: Yes ROS Constitutional Constitutional: Denies anorexia Eyes Eyes: Denies blurry vision ENT HEENT: Denies dysphagia Cardiovascular Cardiovascular: Denies chest pain Respiratory/Chest Respiratory/Chest: Denies cough Gastrointestinal Gastrointestinal: Denies abdominal pain Genitourinary Genitourinary: Denies dysuria Integumentary Integumentary: Denies jaundice Psychiatric Psychiatric: Denies anxiety Hematologic/Lymphatic Hematologic/Lymphatic: Reports easy bleeding and easy bruising Physical Exam Const alert, oriented x3 and no apparent distress HEENT normocephalic and head/scalp atraumatic Resp normal respiratory effort Cardio regular rate GI soft to palpation and non-tender; Negative for non-distended Palpation: Negative for guarding Extremity Extremity Narrative: Right upper extremity fistula good thrill Skin no rashes or lesions noted Neuro CN's II-XII intact bilaterally Psych mental status grossly normal Lab / Micro Data 05/28/25 05:30 05/29/25 05:04 Labs: Laboratory Results - last 24 hr 05/27/25 19:26: WBC 5.0, RBC 3.47 L, Hgb 9.8 L, Hct 32.2 L, MCV 92.8, MCH 28.2, MCHC 30.4 L, RDW Std Deviation 49.4 H, RDW Coeff of Iron 14.6, Plt Count 169, MPV 11.4, Immature Gran % (Auto) 0.400, Neut % (Auto) 69.6, Lymph % (Auto) 16.0 L, [place] % (Auto) 10.0, Eos % (Auto) 3.4, Baso % (Auto) 0.6, Absolute Neuts (auto) 3.5, Absolute Lymphs (auto) 0.80 L, Nucleated RBC % 0, Sodium Cancelled, Potassium Cancelled, Chloride Cancelled, Carbon Dioxide Cancelled, Anion Gap Cancelled, BUN Cancelled, Creatinine Cancelled, Estim Creat Clear Calc Cancelled, Est GFR (MDRD) Non-Af Cancelled, BUN/Creatinine Ratio Cancelled, Glucose Cancelled, Calcium Cancelled, Troponin T High Sens Cancelled 07/25/25 21:15: Sodium 142, Potassium 5.0, Chloride 108, Carbon Dioxide 24.1, Anion Gap 10, BUN 53 H, Creatinine 3.91 H, Estim Creat Clear Calc 10.71 L, Est GFR (MDRD) Non-Af 12 L, BUN/Creatinine Ratio 13.4, Glucose 109 H, Calcium 8.3, Troponin T High Sens 135 H* 05/27/25 23:04: Troponin T Hi Sens 2 Hr 133 H* 05/28/25 01:56: POC Glucose 156 H 05/28/25 05:30: WBC 3.8 L, RBC 3.49 L, Hgb 9.7 L, Hct 32.7 L, MCV 93.7, MCH 27.8, MCHC 29.7 L, RDW Std Deviation 48.7 H, RDW Coeff of Iron 14.5, Plt Count 142 L, MPV 10.4, Immature Gran % (Auto) 0.800, Neut % (Auto) 90.5 H, Lymph % (Auto) 5.5 L, [place] % (Auto) 2.1, Eos % (Auto) 0.3, Baso % (Auto) 0.8, Absolute Neuts (auto) 3.5, Absolute Lymphs (auto) 0.21 L, Nucleated RBC % 0, Sodium 141, Potassium 4.8, Chloride 105, Carbon Dioxide 24.3, Anion Gap 12, BUN 55 H, Creatinine 4.05 H, Estim Creat Clear Calc 10.43 L, Est GFR (MDRD) Non-Af 12 L, BUN/Creatinine Ratio 13.6, Glucose 176 H, Calcium 8.3 05/28/25 12:05: POC Glucose 229 H 05/28/25 19:04: POC Glucose 313 H Rhythm Strip Rhythm Strip: Sinus Rhythm Rate: 70 Ectopy: None Imaging Radiology Impression Chest X-Ray 05/27/25 19:50 IMPRESSION: Pulmonary findings as above. Reading Location: [id number] Charges/Coding Visit Charges Inpatient E&M: 73126 Init Hosp L3
[2025-05-28] MEDS: Insulin Glargine-YFGN 100 UNIT/ML Pen 20 UNIT SC (21:10)
[2025-05-29] VITALS (13 sets, daily range): BP systolic 145–165; BP diastolic 58–69; PULSE 67–85; RESP 14–20; TEMP 36.5–37; O2SAT 96–100; BMI 17.5
[2025-05-29 06:12] LABS: Anion Gap 12 (5-15); BUN 69 mg/dL (4-19); BUN/Creat Ratio 15.5 RATIO (10-20); Calcium,Total 8.5 mg/dL (7.6-11.0); Carbon Dioxide 22.5 mmol/L (21.0-32.0); Chloride 104 mmol/L (98-108); Estimated Creatinine Clearance 9.83 ml/min (50-250); Glucose 164 mg/dL (70-99); Potassium 5.3 mmol/L (3.3-5.1)
[2025-05-29] MEDS: Budesonide Respules 0.5 MG/2 ML AMPUL.NEB. INHALATION ×2 (07:05→19:18)
[2025-05-29] MEDS: SEVELAMER CARBONATE 800 MG TABLET PO ×3 (08:39→17:10)
[2025-05-29] MEDS: ROFLUMILAST 500 MCG TABLET PO (08:40)
[2025-05-29] MEDS: Insulin Glargine-YFGN 100 UNIT/ML Pen 20 UNIT SC (08:45)
[2025-05-29] MEDS: Heparin Injection (Vial) 5,000 UNIT/ML VIAL 5000 UNIT SC (08:46)
--- NOTE | 2025-05-29 11:48 | PCM.PN.SRG ---
Subjective Subjective Patient denies any issues overnight. Patient's creatinine is 4.44 from 4.05. Plan for tunneled dialysis catheter placement tomorrow Objective Data Objective Data Vital Signs: Vital Signs Temp Pulse Resp BP Pulse Ox O2 Del Method O2 Flow Rate 98 F 73 15 155/67 H 96 Nasal Cannula 2 05/29/25 08:30 05/29/25 08:36 05/29/25 08:30 05/29/25 08:30 05/29/25 08:30 05/29/25 08:30 05/29/25 08:30 Oxygen Flow Rate (L/min) 2 Oxygen Delivery Method Nasal Cannula Weight: 108 lb 11.006 oz Body Mass Index (BMI) 17.5 Intake & Output: Intake and Output for Last 24 Hours 05/27/25 05/28/25 05/29/25 23:59 23:59 23:59 Intake Total 715 / 835 595 / 595 Balance 715 / 835 595 / 595 Lab / Micro Data 05/28/25 05:30 05/29/25 05:04 Labs: Laboratory Results - last 24 hr 05/28/25 12:05: POC Glucose 229 H 05/28/25 19:04: POC Glucose 313 H 05/28/25 21:09: POC Glucose 334 H 05/29/25 05:04: Sodium 139, Potassium 5.3 H, Chloride 104, Carbon Dioxide 22.5, Anion Gap 12, BUN 69 H, Creatinine 4.44 H, Estim Creat Clear Calc 9.83 L*, Est GFR (MDRD) Non-Af 10 L, BUN/Creatinine Ratio 15.5, Glucose 164 H, Calcium 8.5 05/29/25 08:29: POC Glucose 94 05/29/25 10:11: POC Glucose 142 H Rhythm Strip Rhythm Strip: Sinus Rhythm Rate: 70 Ectopy: None Physical Exam Narrative Previous tunnel dialysis right IJ site well-healed?resolving ecchymosis Const oriented x3 and no apparent distress Assessment & Plan Assessment/Plan (1) Dialysis AV fistula malfunction: (2) ESRD (end stage renal disease) on dialysis: PLAN: Plan Plan for tunneled dialysis catheter placement Friday?time to be determined. Discussed procedure including risk not limited to bleeding, infection, catheter malfunction. Patient has no further questions. Brielle Turner M.D. Pager: [phone] [facility] [address] [place] [address], Outpatient [place], [address] [place] [address] Office: [phone] Charges/Coding Visit Charges Inpatient E&M: 08297 Subs Hosp L2
--- NOTE | 2025-05-29 13:41 | NS ---
Pt not interested in Ensure or Nepro or Magic Cup. Agreeable to trial Beneprotein with meals to help increase protein intakes.
--- NOTE | 2025-05-29 17:07 | PCM.PN.HOSP ---
Reason for Visit Chief Complaint: Shortness of breath Subjective Subjective Patient was seen and examined today, she will undergo insertion of a tunneled dialysis catheter tomorrow, she will also be seen by vascular surgery. Patient remains on her home oxygen setting, creatinine today was 4.44 with a BUN of 69, potassium was slightly high at 5.3. Patient appears in no respiratory distress. Objective Data Objective Data Vital Signs: Vital Signs Temp Pulse Resp BP Pulse Ox O2 Del Method O2 Flow Rate 98.1 F 81 17 145/58 H 100 Nasal Cannula 2 05/29/25 15:00 05/29/25 15:17 05/29/25 15:17 05/29/25 15:00 05/29/25 15:00 05/29/25 15:00 05/29/25 15:00 Oxygen Flow Rate (L/min) 2 Oxygen Delivery Method Nasal Cannula Weight: 49.3 kg Body Mass Index (BMI) 17.5 Intake & Output: Intake and Output for Last 24 Hours 05/27/25 05/28/25 05/29/25 23:59 23:59 23:59 Intake Total 715 / 835 595 / 595 Balance 715 / 835 595 / 595 Lab / Micro Data 05/28/25 05:30 05/29/25 05:04 Labs: Laboratory Results - last 24 hr 05/28/25 19:04: POC Glucose 313 H 05/28/25 21:09: POC Glucose 334 H 05/29/25 05:04: Sodium 139, Potassium 5.3 H, Chloride 104, Carbon Dioxide 22.5, Anion Gap 12, BUN 69 H, Creatinine 4.44 H, Estim Creat Clear Calc 9.83 L*, Est GFR (MDRD) Non-Af 10 L, BUN/Creatinine Ratio 15.5, Glucose 164 H, Calcium 8.5 05/29/25 08:29: POC Glucose 94 05/29/25 10:11: POC Glucose 142 H 05/29/25 11:35: POC Glucose 96 05/29/25 15:07: POC Glucose 131 H 05/29/25 16:42: POC Glucose 146 H Rhythm Strip Rhythm Strip: Sinus Rhythm Rate: 70 Ectopy: None Physical Exam Const alert, oriented x3, no apparent distress and healthy appearing Constitutional Narrative: Patient appears older than her stated age General Appearance: cooperative, well kempt and well developed Orientation / Consciousness: awake, oriented to person, oriented to place and oriented to time HEENT normocephalic, head/scalp atraumatic and moist oral mucous membranes Eyes PERRL, EOMs intact bilaterally and conjunctivae normal Neck supple, no JVD and thyroid normal General: trachea midline Resp normal respiratory effort, no retractions and no use of accessory muscles Resp Narrative: Breath sounds are diminished bilaterally, there are inspiratory rales at the bases bilaterally Auscultation: rales bilateral base; Negative for rhonchi or wheezes Cardio regular rate, regular rhythm, S1 normal heart sound, S2 normal heart sound, no murmurs, no rub and no gallops GI normal to inspection, nondistended, normoactive bowel sounds, soft to palpation, non-tender and non-distended Extremity no clubbing, cyanosis or edema Skin no rashes or lesions noted General Skin Exam: no breakdown Neuro oriented x3, CN's II-XII intact bilaterally, moves all extremities, no focal motor deficits and no sensory deficits noted Sensorium / Orientation: awake and alert Speech: speech normal Psych affect normal Assessment & Plan Assessment/Plan (1) Dialysis AV fistula malfunction: PLAN: Plan 1. Fluid overload-secondary to nonfunctioning fistula for end-stage renal disease, patient's oxygen requirement appears stable at this time, she will undergo dialysis tomorrow after a tunneled dialysis catheter is placed #2 nonfunctioning fistula-patient will be evaluated by vascular surgery and have a duplex of the fistula tomorrow #3 chronic obstructive pulmonary disease-patient will remain on aerosol treatments, again I do not think she needs corticosteroid administration, I have elected to keep her on Zithromax for now #4 coronary artery disease-patient's Plavix is being held at this time due to her catheter placement tomorrow #5 type 2 diabetes-patient's blood sugars will be monitored, I adjusted her insulin today due to low blood sugar readings. Patient is primarily going to be treated with sliding scale insulin for now #6 essential hypertension-patient will remain on her present medications #7 hyperlipidemia-patient is on a statin #8 chronic hypoxic respiratory failure secondary to COPD-again patient's oxygen requirement at rest for now is 2 L. This is her home oxygen setting. Total clinical time spent by myself addressing the patient's medical issues, reviewing all of her data, and collaborating with the patient's care team: 35 minutes Charges/Coding Visit Charges Inpatient E&M: 25324 Subs Hosp L2
[2025-05-29] MEDS: Albuterol 2.5 MG/3 ML VIAL.NEB. INHALATION (21:37)
--- NOTE | 2025-05-29 21:39 | CPS ---
Patient requested breathing tx due to SOB
[2025-05-30] VITALS (24 sets, daily range): BP systolic 133–165; BP diastolic 47–69; PULSE 63–82; RESP 12–26; TEMP 34.7–37.1; O2SAT 89–100; BMI 16.9; BMI 16.6
[2025-05-30] MEDS: MELATONIN 10 MG TABLET 5 MG PO ×2 (00:46→22:00)
--- NOTE | 2025-05-30 05:10 | CPS ---
Patient refused to wear home PAP
[2025-05-30 05:39] LABS: Hematocrit 30.9 % (37-47); Hemoglobin 9.2 g/dL (12.0-15.0); Mean Corp Hgb Conc 29.8 g/dL (32-36); Mean Corpuscular Volume 93.4 fL (81-99); Mean Platelet Vol. 9.8 fl (6.2-12.0); Platelet Count 207 K/mm3 (150-450); RBC Distribution Width CV 15.1 % (11.6-14.6); RBC Distribution Width SD 50.5 fl (35.1-43.9); Red Blood Count 3.31 M/mm3 (4.2-5.4); White Blood Count 5.8 K/mm3 (4.4-11.0)
[2025-05-30 06:03] LABS: Albumin, Serum 3.5 g/dL (3.4-4.8); Anion Gap 11 (5-15); BUN 71 mg/dL (4-19); BUN/Creat Ratio 15.0 RATIO (10-20); Calcium,Total 8.7 mg/dL (7.6-11.0); Carbon Dioxide 26.9 mmol/L (21.0-32.0); Chloride 102 mmol/L (98-108); Estimated Creatinine Clearance 8.97 ml/min (50-250); Glucose 203 mg/dL (70-99); Potassium 4.8 mmol/L (3.3-5.1)
[2025-05-30] MEDS: Budesonide Respules 0.5 MG/2 ML AMPUL.NEB. INHALATION ×2 (07:03→19:06)
--- NOTE | 2025-05-30 08:17 | PCM.PN.SRG ---
Subjective Subjective Patient evaluated resting comfortably in bed. She seems short of breath this morning. She has not had dialysis since last Friday. She states recently she had her chest catheter out [address] Sinclair created the right upper extremity fistula. Objective Data Objective Data Vital Signs: Vital Signs Temp Pulse Resp BP Pulse Ox O2 Del Method O2 Flow Rate 98 F 76 20 H 152/56 H 92 Nasal Cannula 2 05/30/25 03:20 05/30/25 03:20 05/30/25 03:20 05/30/25 03:20 05/30/25 03:20 05/30/25 03:20 05/30/25 03:20 Oxygen Flow Rate (L/min) 2 Oxygen Delivery Method Nasal Cannula Weight: 105 lb 2.568 oz Body Mass Index (BMI) 16.9 Intake & Output: Intake and Output for Last 24 Hours 05/28/25 05/29/25 05/30/25 23:59 23:59 23:59 Intake Total 715 / 835 1070 / 1070 Balance 715 / 835 1070 / 1070 Lab / Micro Data 05/30/25 05:05 05/30/25 05:05 Labs: Laboratory Results - last 24 hr 05/29/25 08:29: POC Glucose 94 05/29/25 10:11: POC Glucose 142 H 05/29/25 11:35: POC Glucose 96 05/29/25 15:07: POC Glucose 131 H 05/29/25 16:42: POC Glucose 146 H 05/29/25 21:25: POC Glucose 195 H 05/29/25 23:06: POC Glucose 205 H 05/30/25 02:07: POC Glucose 167 H 05/30/25 05:05: WBC 5.8, RBC 3.31 L, Hgb 9.2 L, Hct 30.9 L, MCV 93.4, MCH 27.8, MCHC 29.8 L, RDW Std Deviation 50.5 H, RDW Coeff of Iron 15.1 H, Plt Count 207, MPV 9.8, Sodium 140, Potassium 4.8, Chloride 102, Carbon Dioxide 26.9, Anion Gap 11, BUN 71 H, Creatinine 4.71 H, Estim Creat Clear Calc 8.97 L*, Est GFR (MDRD) Non-Af 10 L, BUN/Creatinine Ratio 15.0, Glucose 203 H, Calcium 8.7, Phosphorus 4.1, Albumin 3.5 05/30/25 06:09: POC Glucose 206 H Rhythm Strip Rhythm Strip: Sinus Rhythm Rate: 70 Ectopy: None Physical Exam Chest Chest Narrative: Right chest with moderate amount of ecchymosis Extremity Extremity Narrative: Right upper extremity AV fistula- good pulse, bruit and thrill. Moderate amount of ecchymosis mid humerus at access sites Assessment & Plan Assessment/Plan (1) Dialysis AV fistula malfunction: (2) End stage renal disease: PLAN: Plan I am following this patient in conjunction with Dr. Turner. She will independently evaluate this patient. Labs reviewed Dialysis will plan to access the fistula and attempt to perform treatment this morning. If fistula is able to be accessed, we will plan to cancel tunneled dialysis catheter placement If unable to access, Dr. Turner will plan to place right chest possible left tunneled dialysis catheter today at approx 12:15 We will continue to monitor this patient Charges/Coding Visit Charges Inpatient E&M: 62959 Subs Hosp L2
--- NOTE | 2025-05-30 08:24 | PCM.PN.HOSP ---
Reason for Visit Chief Complaint: Shortness of breath Subjective Subjective Patient is currently on dialysis with good flow however she has pain with higher flows. Discussed with Dr. Christy Huerta and plan is for ultrasound with Dr. Sinclair's involvement for potential fistulogram. Patient states her shortness of breath is improving as she is run on dialysis today but she is still short of breath and appears mildly short of breath at rest with conversation. Objective Data Objective Data Vital Signs: Vital Signs Temp Pulse Resp BP Pulse Ox O2 Del Method O2 Flow Rate 97 F L 70 12 159/66 H 100 Nasal Cannula 2 05/30/25 08:10 05/30/25 08:10 05/30/25 08:10 05/30/25 08:10 05/30/25 08:10 05/30/25 08:10 05/30/25 08:10 Oxygen Flow Rate (L/min) 2 Oxygen Delivery Method Nasal Cannula Weight: 47.7 kg Body Mass Index (BMI) 16.9 Intake & Output: Intake and Output for Last 24 Hours 05/28/25 05/29/25 05/30/25 23:59 23:59 23:59 Intake Total 715 / 835 1070 / 1070 Balance 715 / 835 1070 / 1070 Lab / Micro Data 05/30/25 05:05 05/30/25 05:05 Labs: Laboratory Results - last 24 hr 05/29/25 08:29: POC Glucose 94 05/29/25 10:11: POC Glucose 142 H 05/29/25 11:35: POC Glucose 96 05/29/25 15:07: POC Glucose 131 H 05/29/25 16:42: POC Glucose 146 H 05/29/25 21:25: POC Glucose 195 H 05/29/25 23:06: POC Glucose 205 H 05/30/25 02:07: POC Glucose 167 H 05/30/25 05:05: WBC 5.8, RBC 3.31 L, Hgb 9.2 L, Hct 30.9 L, MCV 93.4, MCH 27.8, MCHC 29.8 L, RDW Std Deviation 50.5 H, RDW Coeff of Iron 15.1 H, Plt Count 207, MPV 9.8, Sodium 140, Potassium 4.8, Chloride 102, Carbon Dioxide 26.9, Anion Gap 11, BUN 71 H, Creatinine 4.71 H, Estim Creat Clear Calc 8.97 L*, Est GFR (MDRD) Non-Af 10 L, BUN/Creatinine Ratio 15.0, Glucose 203 H, Calcium 8.7, Phosphorus 4.1, Albumin 3.5 05/30/25 06:09: POC Glucose 206 H Rhythm Strip Rhythm Strip: Sinus Rhythm Rate: 70 Ectopy: None Physical Exam Const alert, oriented x3 and no apparent distress; Negative for average body habitus, healthy appearing or well nourished Constitutional Narrative: Thin, upper middle-aged, white female, who appears older than stated age, sitting up in bed, watching television, spouse at bedside, appears comfortable and nontoxic, currently on HD, HD nursing at bedside HEENT head/scalp atraumatic and moist oral mucous membranes Head and Scalp: normocephalic Resp normal respiratory effort, no retractions, no use of accessory muscles and No clear to auscultation bilaterally Resp Narrative: Diffusely diminished with inspiratory wheeze in the right base that clears with cough Auscultation: wheezes; Negative for crackles or rhonchi Cardio regular rate, regular rhythm, S1 normal heart sound, S2 normal heart sound, no murmurs, no rub, no gallops and no clicks GI normal to inspection, nondistended, normoactive bowel sounds, soft to palpation and non-tender GI Narrative: Scaphoid abdomen Extremity no clubbing, cyanosis or edema Extremity Narrative: Right upper extremity fistula which has a thrill bruit and thrill, currently accessed for dialysis, decreased lean muscle mass Skin Skin Narrative: Ecchymosis on right anterior chest area Neuro oriented x3, moves all extremities and no focal motor deficits Neuro Narrative: Markedly hard of hearing Speech: speech normal Psych Negative for affect normal Psych Narrative: Eye contact is good, patient interacts appropriately, affect is slightly flat but appropriate for current situation Assessment & Plan Assessment/Plan (1) Cachexia: (2) Dialysis AV fistula malfunction: (3) Elevated troponin I level: (4) End stage renal disease: (5) Dyspnea: PLAN: Plan Malfunctioning dialysis access - Fistula was able to be accessed today therefore tunneled dialysis catheter was canceled - patient was able to be run but had pain with higher flows - Ultrasound is pending - Await vascular surgery input with regards to fistulogram Elevated troponin - Secondary to demand ischemia with acute hypoxia related to volume overload and in the setting of CKD with decreased clearance - No further workup at this time Volume overloaded/shortness of breath - Secondary to problematic fistula - Patient is feeling better with fluid removal today - Ongoing dialysis per nephrology - Patient is on her baseline oxygen Cachexia - Does not meet criteria for severe or moderate malnutrition - Patient is underweight with a BMI of 16.7 - Continue supplements - Dietitian is following CAD/essential hypertension/hyperlipidemia - Continue to hold Plavix and aspirin until vascular interventions are completed then restart next-continue home statin - Continue home metoprolol - Continue home amlodipine ESRD - 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 - HD per nephrology Chronic anemia secondary to renal disease - Hemoglobin stable Chronic hypoxic respiratory failure/COPD - Continue home inhalers - Patient is on 2 to 3 L at baseline chronically - Remains on baseline oxygen at this time - Will check ambulatory pulse ox prior to discharge - Acute shortness of breath should improve with volume removal DM-2 - Continue home insulin pump - Continue outpatient follow-up after discharge with endocrinology - Accu-Cheks as ordered DVT prophylaxis - Continue subcu heparin twice daily CODE STATUS - Full code Charges/Coding Visit Charges Inpatient E&M: 44235 Subs Hosp L2
[2025-05-30] MEDS: 0.9% Normal Saline 1,000 ML IV.SOLN. 1000 ML OPERA.SITE (08:46)
[2025-05-30] MEDS: PureFlow B 2K Dialysis Soln 1 BAG 6 BAG PF (08:47)
--- NOTE | 2025-05-30 09:06 | NUR.TO.PHY ---
Dialysis Coordinator assessed GERARDO fistula. Strong thrill/bruit throughout. Accessed fistula w/ 16g needle w/o complication. Patient had previously c/o pain in proximal fistula during HD, so fistula accessed more distally today. BFR set to 300ml/min (standard). pt c/o starting to hurt in an area @ 4 above venous needle point- same area as before per pt. BFR reduced to 250ml/min & no pain per pt. Discussed findings w/ emergency room physician. Coordinator discussed case w/ Dr. Turner & tdc intervention cancelled for today per Dr. Alvarez. Appears tdc not necessary at this point as fistula is able to be accessed, albeit at lower than normal flow rates. Appears that vascular intervention is more appropriate at this time.
[2025-05-30] MEDS: 0.9% Saline Lock 10 ML Syringe IV (10:28)
[2025-05-30] MEDS: Lorazepam 2 MG/ML WCH Syringe 0.5 MG IV (10:28)
--- NOTE | 2025-05-30 11:01 | PN.RENAL_ITS ---
Subjective Subjective seen on dialysis. Tolerating fluid removal 2L so far. Pain with blood flow at 300cc/min. Tolerating better with 250 blood flow. Will need evaluation of AVF Objective Data Objective Data Vital Signs: Vital Signs Temp Pulse Resp BP Pulse Ox O2 Del Method O2 Flow Rate 97 F L 70 16 149/60 H 98 Nasal Cannula 2 05/30/25 08:10 05/30/25 10:30 05/30/25 10:23 05/30/25 10:30 05/30/25 09:22 05/30/25 09:22 05/30/25 09:22 Oxygen Flow Rate (L/min) 2 Oxygen Delivery Method Nasal Cannula Weight: 47.7 kg Body Mass Index (BMI) 16.9 Intake & Output: Intake and Output for Last 24 Hours 05/28/25 05/29/25 05/30/25 23:59 23:59 23:59 Intake Total 715 / 835 1070 / 1070 Balance 715 / 835 1070 / 1070 Lab / Micro Data 05/30/25 05:05 05/30/25 05:05 Labs: Laboratory Results - last 24 hr 05/29/25 11:35: POC Glucose 96 05/29/25 15:07: POC Glucose 131 H 05/29/25 16:42: POC Glucose 146 H 05/29/25 21:25: POC Glucose 195 H 05/29/25 23:06: POC Glucose 205 H 05/30/25 02:07: POC Glucose 167 H 05/30/25 05:05: WBC 5.8, RBC 3.31 L, Hgb 9.2 L, Hct 30.9 L, MCV 93.4, MCH 27.8, MCHC 29.8 L, RDW Std Deviation 50.5 H, RDW Coeff of Iron 15.1 H, Plt Count 207, MPV 9.8, Sodium 140, Potassium 4.8, Chloride 102, Carbon Dioxide 26.9, Anion Gap 11, BUN 71 H, Creatinine 4.71 H, Estim Creat Clear Calc 8.97 L*, Est GFR (MDRD) Non-Af 10 L, BUN/Creatinine Ratio 15.0, Glucose 203 H, Calcium 8.7, Phosphorus 4.1, Albumin 3.5 05/30/25 06:09: POC Glucose 206 H 05/30/25 09:16: POC Glucose 123 H Rhythm Strip Rhythm Strip: Sinus Rhythm Rate: 70 Ectopy: None Physical Exam Const alert and oriented x3 Resp clear to auscultation bilaterally Resp Narrative: diminished GI non-tender and non-distended Auscultation: normoactive bowel sounds Palpation: soft Extremity no clubbing, cyanosis or edema General Extremity: AV fistula Assessment & Plan Assessment/Plan (1) ESRD (end stage renal disease) on dialysis: PLAN: due to diabetes on home hemodialysis 4x/wk. Last dialysis Friday. Difficulty with access use Friday and Friday Currently on dialysis with 16g needles. Pain with blood flow at 300, dropped to 250 blood flow. (2) Dialysis AV fistula malfunction: PLAN: evaluate for stenosis (3) Intermittent chest pain: (4) Dyspnea: PLAN: oxygenation stable (5) Essential (primary) hypertension: (6) Chronic obstructive pulmonary disease: QUALIFIERS: COPD type: unspecified COPD Qualified Code(s): J44.9 - Chronic obstructive pulmonary disease, unspecified PLAN: hx tobacco use (7) DM type 1 (diabetes mellitus, type 1): QUALIFIERS: Diabetes mellitus complication status: with kidney complications Diabetes mellitus complication detail: with chronic kidney disease Chronic kidney disease stage: stage 4 (severe) Qualified Code(s): E 10.22 - Type 1 diabetes mellitus with diabetic chronic kidney disease; N18.4 - Chronic kidney disease, stage 4 (severe) (8) Lung nodule, multiple: (9) Atherosclerosis of coronary artery of [place] heart without angina pectoris: QUALIFIERS: Coronary Disease-Associated Artery/Lesion type: [place] artery Qualified Code(s): I25.10 - Atherosclerotic heart disease of [place] coronary artery without angina pectoris (10) Hypertension: QUALIFIERS: Hypertension type: unspecified Qualified Code(s): I10 - Essential (primary) hypertension
--- NOTE | 2025-05-30 11:14 | NURSING ---
am meds given late d/t dialysis
[2025-05-30] MEDS: ROFLUMILAST 500 MCG TABLET PO (13:51)
[2025-05-30] MEDS: SEVELAMER CARBONATE 800 MG TABLET PO ×2 (13:54→17:21)
[2025-05-30 14:28] LABS: Base Excess 0 mmol/L (-2 to +2); FI02 3.0; PO2 83 mmHG (75-100); SITE Not entered; SO2 93 % (95-99)
--- NOTE | 2025-05-30 15:20 | RAD_ITS ---
PROCEDURE: CHEST 1 VIEW (PORTABLE) 05/30/2025 REASON FOR EXAM: HYPOXIA TECHNIQUE: Frontal view of the chest. COMPARISON: 05/27/2025 FINDINGS: Lungs/Pleura: Moderate emphysematous lung changes. Increased hazy/reticular airspace opacity in the right lung base likely reflective of developing pneumonia. No sizable pleural effusion. No focal consolidation on the left. No pneumothorax. Heart/Mediastinum: Borderline enlarged. Bones/Soft tissues: No significant abnormality. RAD/Chest 1 View (Portable) IMPRESSION: Increased right basilar consolidation, likely pneumonia. Moderate emphysema. Reading Location: [id number]
--- NOTE | 2025-05-30 15:46 | PCM.HOSP.N ---
Hospitalist Note I was called due to altered mental status and confusion. Patient's reported she gets like this when her she is retaining CO2. We obtained an ABG and this showed a pH of 7.24 with a PCO2 of 65.8 and a pO2 of 83 on 3 L nasal cannula. She was transitioned to her home CPAP but remained hypoxic so she was transitioned to our BiPAP units. Repeat blood gas will be performed. Check respiratory viral panel. Patient is already on as needed scheduled aerosols. Will obtain blood cultures. Sed rate and CRP will be obtained and a UA will be obtained to ensure this is not related to any type of underlying infection. Hold off on empiric antibiotics with a normal white count today. Chest x-ray is pending. Patient did have dialysis today with removal of 2660 cc.
[2025-05-30 15:55] LABS: Pro- Brain NATRIURETIC PEPTIDE > 70000 pg/mL (<=900)
[2025-05-30 15:59] LABS: CRP 53.70 mg/L (0.0-3.0)
[2025-05-30 16:24] LABS: Base Excess 4 mmol/L (-2 to +2); FI02 7.0; PO2 80 mmHG (75-100); SITE Not entered; SO2 94 % (95-99)
--- NOTE | 2025-05-30 16:37 | CON.PCM.SX_ITS ---
Assessment & Plan Assessment/Plan (1) Arteriovenous fistula stenosis: QUALIFIERS: Encounter type: initial encounter Qualified Code(s): T82.858A - Stenosis of other vascular prosthetic devices, implants and grafts, initial encounter PLAN: - Duplex obtained today reveals stenosis in the mid fistula with otherwise normal caliber and normal flow proximal and distal - Plan for fistulogram with intervention 06/01 - Okay to continue use of fistula for dialysis tomorrow HPI Consult Data Date of Consult: 05/30/25 HPI Narrative HPI Narrative: SANDY ELLIS, is a 64 F who presents with shortness of breath and presumed CHF exacerbation. She has history of end-stage renal disease currently on dialysis via right upper arm cephalic fistula which had been functioning well until Friday when approximately 5 minutes after beginning the session she developed discomfort cephalad to the venous return needle and had to abort her session. She presented over the weekend and efforts to perform inpatient dialysis were unsuccessful at access. This morning they were able to access the fistula however they also had pain at the venous return site and had to run at the lower rate. There is no evidence of hematoma or infiltration on physical exam. She was able to successfully complete her dialysis session today at the lower rate. The patient had a sedative prior to my evaluation she is very drowsy so the majority of the history is obtained from her . [facility] Medical History Chronic hypoxic respiratory failure On home oxygen therapy Wears hearing aid Wears glasses Post-menopausal Insulin dependent diabetes mellitus Diabetes History of renal dialysis History of renal disease Anemia High cholesterol Easy bruising Excessive bleeding Injury of head and neck Former smoker Emphysema, unspecified History of edema History of echocardiogram History of stress test Cardiology follow-up encounter Osteoporosis Presence of insulin pump Severely underweight adult Lung nodule, multiple Nicotine abuse Lung nodule, solitary Fissure in skin of foot Lashmeet's sign present Tobacco abuse CKD (chronic kidney disease) stage 4, GFR 15-29 ml/min Body mass index (BMI) less than 16.5 Underweight Polyneuropathy due to type 1 diabetes mellitus Stage 4 chronic kidney disease due to type 1 diabetes mellitus Respiratory failure with hypoxia Smoking greater than 30 pack years Anemia Diabetic nephropathy, type I Hyperkalemia Renal insufficiency Diabetes Chronic obstructive pulmonary disease Essential (primary) hypertension Hypersomnia Anxiety Depression Atherosclerosis of coronary artery of [place] heart without angina pectoris NSTEMI (non-ST elevated myocardial infarction) (01/12/18) DM type 1 (diabetes mellitus, type 1) Hyperlipidemia COPD (chronic obstructive pulmonary disease) Home Medications ?Medication ?Instructions ?Recorded ?Last Taken ?Type simvastatin 40 mg tablet 40 mg PO QHS cholesterol 01/03/25 History albuterol sulfate 2.5 mg/3 mL 2.5 mg (3 mL) inhalation Q2H PRN 06/23/18 Unknown Rx (0.083 %) solution for nebulization PRN dyspnea, wheez ing ##1 aspirin 81 mg tablet,delayed 81 mg PO DAILY heart heal th 12/31/19 01/03/25 History release oxygen See Rx Instructions NASAL .C OMPLEX 12/03/23 01/04/25 History O2 therapy ipratropium 0.5 mg-albuterol 3 mg 3 ml inhalation Q4H PRN PRN SOB 12/29/23 Unknown Rx (2.5 mg base)/3 mL nebulization &/OR WHEEZING #180 mL soln denosumab 60 mg/mL subcutaneous 60 mg subcut [id number] bone health 06/10/24 07/09/24 Rx syringe (Prolia) #1 mL clopidogrel 75 mg tablet 75 mg PO DAILY anti platelet #90 07/26/24 01/03/25 Rx tabs nitroglycerin 0.4 mg sublingual 0.4 mg sublingual Q5-1 5M PRN chest 10/21/24 Unknown Rx tablet pain #25 tabs metoprolol tartrate 50 mg tablet 50 mg PO BID blood pr essure #180 11/11/24 01/03/25 Rx tabs amlodipine 10 mg tablet (Norvasc) 10 mg PO DAILY blood pressure 30 11/20/24 01/03/25 Rx days #30 tabs buspirone 7.5 mg tablet 7.5 mg PO DAILY Antianxiety 12/14/24 01/03/25 History sevelamer carbonate 800 mg tablet 800 mg PO TID To low er Phosphorus 12/14/24 01/03/25 History cefdinir 300 mg capsule 300 mg PO BID 5 days #10 cap s 01/06/25 Unknown Rx pseudoephedrine-guaifenesin ER 60 1 tab PO BID cold sy mptoms #14 tabs 01/06/25 Unknown Rx mg-600 mg tablet,extend release 12hr (Mucinex D) blood-glucose sensor (FreeStyle #6 ea 02/09/25 Unknown Rx Eileen 2 Plus Sensor device) insulin pump cart,auto,BT,G6/L #30 ea 02/09/25 Unknown Rx (Omnipod 5 (G6/Eileen 2 Plus) subcutaneous cartridge) albuterol sulfate 90 mcg/actuation 2 puff inhalation Q 6H PRN PRN 03/14/25 Unknown Rx aerosol inhaler Cough #8.5 grams blood-glucose sensor (Dexcom G6 #3 ea 04/07/25 Unknown Rx Sensor device) blood-glucose transmitter (Dexcom #1 ea 04/07/25 Unkno wn Rx G6 Transmitter device) insulin lispro 100 unit/mL 60 unit (0.6 mL) continuous 04/07/25 Unknown Rx subcutaneous solution (Humalog subcutaneous infusion . continuous U-100 Insulin) #54 mL ondansetron 4 mg disintegrating 4 mg PO Q8H PRN PRN Na usea #10 tabs 05/08/25 Unknown Rx tablet roflumilast 500 mcg tablet 500 mcg PO DAILY breathing #30 tabs 05/11/25 Unknown Rx (Daliresp) fluticasone fur. 200 mcg-umeclid 1 inh inhalation HAJA Y breathing 05/18/25 Unknown Rx 62.5 mcg-vilant 25 mcg #3 ea inhalat.powder (Trelegy Ellipta) Allergy/AdvReac Type Severity Reaction Status Date / Time No Known Allergies Allergy Verified 05/27/25 19:11 Family History Mother Heart disease COPD (chronic obstructive pulmonary disease) Lupus Daughter Growth disorder Down syndrome Fibromyalgia Grandfather Colon cancer Diabetes Grandmother Heart disease CVA (cerebral vascular accident) Diabetes Pulmonary disease Sister Hypertension Kidney disease Surgical History Hx of surgical procedure History of cardiac catheterization History of coronary artery stent placement Hx of surgical procedure H/O: Hx of appendectomy H/O: hysterectomy History of coronary artery stent placement (02/04/18) Social History household members: spouse housing: house pets and animals: Yes pets and animals: cat(s) Smoking Status: Former smoker how long ago did patient quit smoking: Since 05/2024 cut back and has only had ~ 10 cigarettes since then. quit status: considering quitting alcohol intake: never substance use type: does not use caffeine: Yes Type: carbonated beverages Number of servings: 4 what type of physical activity do you participate in: none seatbelt use: always do you feel safe at home: Yes ROS Review of Systems ROS Unobtainable: due to mental status Physical Exam Const Constitutional Narrative: Awakens briefly to verbal General Appearance: cooperative, ill appearing Positive for chronically and frail; Negative for combative or lethargic Orientation / Consciousness: lethargic Exam Limitations: altered mental status HEENT Head and Scalp: normocephalic and atraumatic Neck full ROM General: trachea midline Resp normal respiratory effort, no use of accessory muscles and clear to auscultation bilaterally Effort and Inspection: Negative for labored, stridor or audible wheezes Cardio regular rate and regular rhythm Cardio Narrative: +thrill RUE Peripheral Pulses: brachial pulses present and radial pulses present Back/Spine Cervical Spine: cervical ROM normal Extremity full ROM, normal capillary refill and no clubbing, cyanosis or edema Skin no rashes or lesions noted and no wounds Neuro no focal motor deficits Medical Records Data Medical Nutrition Assessment Dietitian: Malnutrition Criteria Met Start: 05/30/25 11:40 Freq: Status: Active Protocol: Document 05/30/25 11:41 RMA (Rec: 05/30/25 11:41 RMA [email or web address]) Nutrition Malnutrition Evidence of Yes Malnutrition Exists Malnutrition ( Chronic moderate): Evidenced By Suboptimal Energy Intake (Moderate),Physical Changes ( Moderate) Clinical Problem Chronic Disease or Condition Related Malnutrition Etiology moderate pro-[place] malnutrition in the context of chronic disease related to chronic kidney disease, inadequate oral/energy intake and underweight status Signs/Symptoms as evidenced by BMI 17.0, PO meeting less than 75% estimated nutrition needs and muscle wasting/fat depletion in the clavicle, arms and legs; fluid weight masking muscle weight loss Status Active Problem Altered Nutrient-Related Laboratory Values Etiology (BUN, creatinine and GFR) related to ESRD/CKD Signs/Symptoms as evidenced by BUN level of 55, creatinine level of 4. 05 and GFR of 12. Status Active Problem Recommendation Dietitian Recommend resume PO with 2000 calorie/consistent Recommendations/ carbohydrate; Renal diet. Changes Pt dislikes PO Nepro; but agrees to trying some Beneprotein for tolerance. Lab / Micro Data 05/30/25 05:05 05/30/25 05:05 Labs: Laboratory Results - last 24 hr 05/29/25 16:42: POC Glucose 146 H 05/29/25 21:25: POC Glucose 195 H 05/29/25 23:06: POC Glucose 205 H 05/30/25 02:07: POC Glucose 167 H 05/30/25 05:05: WBC 5.8, RBC 3.31 L, Hgb 9.2 L, Hct 30.9 L, MCV 93.4, MCH 27.8, MCHC 29.8 L, RDW Std Deviation 50.5 H, RDW Coeff of Iron 15.1 H, Plt Count 207, MPV 9.8, Sodium 140, Potassium 4.8, Chloride 102, Carbon Dioxide 26.9, Anion Gap 11, BUN 71 H, Creatinine 4.71 H, Estim Creat Clear Calc 8.97 L*, Est GFR (MDRD) Non-Af 10 L, BUN/Creatinine Ratio 15.0, Glucose 203 H, Calcium 8.7, Phosphorus 4.1, [place] II > [address] H, Albumin 3.5 05/30/25 06:09: POC Glucose 206 H 05/30/25 09:16: POC Glucose 123 H 05/30/25 12:28: POC Glucose 134 H 05/30/25 15:45: C-React Prot Ext Range 53.70 H, NT pro BNP II Cancelled 05/30/25 15:46: ESR 22 ABG Data ABG results: ABG 05/30/25 05/30/25 14:24 16:19 Specimen Type ART ART Sample Site Not entered Not entered pH 7.24 L 7.31 L Bicarbonate Actual 27.9 H 30.2 H Total CO2 30 32 Base Excess 0 4 H O2 Saturation 93 L 94 L O2 % 3.0 7.0 ABG pCO2 65.8 H 60.3 H ABG pO2 83 80 O2 Delivery Device Not entered Not entered Vent Mode Not entered Not entered Rhythm Strip Rhythm Strip: Sinus Rhythm Rate: 70 Ectopy: None Imaging Radiology Impression Chest X-Ray 05/30/25 15:20 IMPRESSION: Increased right basilar consolidation, likely pneumonia. Moderate emphysema. Reading Location: [id number] Charges/Coding Visit Charges Inpatient E&M: 80839 Init Hosp L2
[2025-05-30 19:07] LABS: Mucous, Urine 0 SEEN /hpf (<or=2+)
[2025-05-30 19:19] LABS: Color, Urine Straw (Yellow); Glucose, Dipstick 100 mg/dl (Normal); Ketone-Dipstick Negative (Negative); Leukocyte Esterase-Dipstick 25 /ul (Negative); Nitrite-Dipstick Negative (Negative); Occult Blood-Urine 25 /ul (Negative); Protein-Dipstick 500 mg/dl (Negative); Specific Gravity, Urine 1.020 (1.002-1.030); Urine Bilirubin Dipstick Negative (Negative)
[2025-05-30 19:38] LABS: Red Blood Cells-Urine 0-5 SEEN /hpf (0-5); Squamous Epithelial Cells - UA 0-5 SEEN /hpf (5-10)
--- NOTE | 2025-05-30 20:36 | CPS ---
RT placed patient back on patient's own PAP machine for the night with 8L oxygen bled in.
[2025-05-31] VITALS (15 sets, daily range): BP systolic 98–137; BP diastolic 35–52; PULSE 56–77; RESP 17–24; TEMP 36.2–36.6; O2SAT 92–100; BMI 16.2
[2025-05-31 04:59] LABS: Hematocrit 31.6 % (37-47); Hemoglobin 9.4 g/dL (12.0-15.0); Immature Granulocytes Count 0.030 X10^3/uL (0.0-0.0); Mean Corp Hgb Conc 29.7 g/dL (32-36); Mean Corpuscular Volume 96.0 fL (81-99); Mean Platelet Vol. 9.1 fl (6.2-12.0); NRBC Flagged by Analyzer 0 % (0-5); Platelet Count 169 K/mm3 (150-450); RBC Distribution Width CV 15.1 % (11.6-14.6); RBC Distribution Width SD 52.3 fl (35.1-43.9); Red Blood Count 3.29 M/mm3 (4.2-5.4); White Blood Count 4.6 K/mm3 (4.4-11.0)
[2025-05-31 05:34] LABS: Anion Gap 16 (5-15); BUN 54 mg/dL (4-19); BUN/Creat Ratio 15.5 RATIO (10-20); Calcium,Total 8.5 mg/dL (7.6-11.0); Carbon Dioxide 22.1 mmol/L (21.0-32.0); Chloride 95 mmol/L (98-108); Estimated Creatinine Clearance 11.65 ml/min (50-250); Glucose 265 mg/dL (70-99); Magnesium 2.2 mg/dL (1.5-2.2); Potassium 5.1 mmol/L (3.3-5.1)
[2025-05-31] MEDS: Budesonide Respules 0.5 MG/2 ML AMPUL.NEB. INHALATION ×2 (06:56→19:20)
--- NOTE | 2025-05-31 08:18 | PN.HOSP_ITS ---
Reason for Visit Chief Complaint: Shortness of breath Subjective Subjective Patient states her breathing feels much better after dialysis yesterday and patient no longer requiring BiPAP which was initiated yesterday afternoon for CO2 retention and hypoxia. Per her she is back to her baseline. Awaiting fistulogram which is planned for later today or likely tomorrow. I did explain that I would want her to run dialysis here prior to discharge to ensure that her fistula is working adequately. She and her voiced understanding. Objective Data Objective Data Vital Signs: Vital Signs Temp Pulse Resp BP Pulse Ox O2 Del Method O2 Flow Rate 97.9 F 77 18 124/48 H 95 Nasal Cannula 3 05/31/25 03:15 05/31/25 07:34 05/31/25 07:34 05/31/25 03:15 05/31/25 07:34 05/31/25 07:34 05/31/25 07:34 Oxygen Flow Rate (L/min) 3 Oxygen Delivery Method Nasal Cannula Weight: 45.8 kg Body Mass Index (BMI) 16.2 Intake & Output: Intake and Output for Last 24 Hours 05/29/25 05/30/25 05/31/25 23:59 23:59 23:59 Intake Total 1070 / 1070 Output Total 2780 / 2780 Balance 1070 / 1070 -2780 / -2780 Medical Nutrition Assessment Dietitian: Malnutrition Criteria Met Start: 05/30/25 11:40 Freq: Status: Active Protocol: Document 05/30/25 11:41 RMA (Rec: 05/30/25 11:41 RMA [id number]) Nutrition Malnutrition Evidence of Yes Malnutrition Exists Malnutrition ( Chronic moderate): Evidenced By Suboptimal Energy Intake (Moderate),Physical Changes ( Moderate) Clinical Problem Chronic Disease or Condition Related Malnutrition Etiology moderate pro-korey malnutrition in the context of chronic disease related to chronic kidney disease, inadequate oral/energy intake and underweight status Signs/Symptoms as evidenced by BMI 17.0, PO meeting less than 75% estimated nutrition needs and muscle wasting/fat depletion in the clavicle, arms and legs; fluid weight masking muscle weight loss Status Active Problem Altered Nutrient-Related Laboratory Values Etiology (BUN, creatinine and GFR) related to ESRD/CKD Signs/Symptoms as evidenced by BUN level of 55, creatinine level of 4. 05 and GFR of 12. Status Active Problem Recommendation Dietitian Recommend resume PO with 2000 calorie/consistent Recommendations/ carbohydrate; Renal diet. Changes Pt dislikes PO Nepro; but agrees to trying some Beneprotein for tolerance. Lab / Micro Data 05/31/25 04:48 05/31/25 04:48 Labs: Laboratory Results - last 24 hr 05/30/25 05:05: [place] > [address] H 05/30/25 09:16: POC Glucose 123 H 05/30/25 12:28: POC Glucose 134 H 05/30/25 15:45: C-React Prot Ext Range 53.70 H, NT pro BNP II Cancelled 05/30/25 15:46: ESR 22 05/30/25 17:18: POC Glucose 187 H 05/30/25 18:45: Urine Color Straw, Urine Clarity Clear, Urine pH 6.0, Ur Specific [place] 1.020, Urine Protein 500 H, Urine Glucose (UA) 100 H, Urine Ketones Negative, Urine Occult Blood 25 H, Urine Nitrite Negative, Urine Bilirubin Negative, Urine Urobilinogen Normal, Ur Leukocyte Esterase 25 H, Urine RBC 0-5 SEEN, Urine WBC 0-5 SEEN, Ur Squamous Epith Cells 0-5 SEEN, Urine Bacteria 0 SEEN, Urine Mucus 0 SEEN 05/30/25 22:03: POC Glucose 264 H 05/31/25 04:48: WBC 4.6, RBC 3.29 L, Hgb 9.4 L, Hct 31.6 L, MCV 96.0, MCH 28.6, MCHC 29.7 L, RDW Std Deviation 52.3 H, RDW Coeff of Iron 15.1 H, Plt Count 169, MPV 9.1, Immature Gran % (Auto) 0.700, Neut % (Auto) 69.9, Lymph % (Auto) 15.5 L , [place] % (Auto) 9.6, Eos % (Auto) 3.9, Baso % (Auto) 0.4, Absolute Neuts (auto) 3.2, Absolute Lymphs (auto) 0.71 L, Nucleated RBC % 0, Sodium 133, Potassium 5.1, Chloride 95 L, Carbon Dioxide 22.1, Anion Gap 16 H, BUN 54 H, Creatinine 3.48 H, Estim Creat Clear Calc 11.65 L, Est GFR (MDRD) Non-Af 14 L, BUN/Creatinine Ratio 15.5, Glucose 265 H, Calcium 8.5, Phosphorus 5.9 H, Magnesium 2.2 Micro: Microbiology 05/30/25 16:06 Mucosa - Nasopharyngeal Coronavirus COVID-19 PCR - Final 05/30/25 16:06 Mucosa - Nasopharyngeal Respiratory Panel (PCR) - Final ABG Data ABG results: ABG 05/30/25 05/30/25 14:24 16:19 Specimen Type ART ART Sample Site Not entered Not entered pH 7.24 L 7.31 L Bicarbonate Actual 27.9 H 30.2 H Total CO2 30 32 Base Excess 0 4 H O2 Saturation 93 L 94 L O2 % 3.0 7.0 ABG pCO2 65.8 H 60.3 H ABG pO2 83 80 O2 Delivery Device Not entered Not entered Vent Mode Not entered Not entered Radiography Diagnostic Testing: Radiology Impression A/V Fistula Ultrasound 05/28/25 15:23 Interpretation Summary Right upper arm fistula patent with >50% stenosis proximal. Otherwise adequate caliber/depth. Adequate flow volumes Ordering Physician: Khai Bulladr Referring Physician: Bird Lujan Performed By: Abdulkadir Schaefer RVT Chest X-Ray 05/30/25 15:20 IMPRESSION: Increased right basilar consolidation, likely pneumonia. Moderate emphysema. Reading Location: [facility] Rhythm Strip Rhythm Strip: Sinus Rhythm Rate: 70 Ectopy: None Physical Exam Const alert, oriented x3 and no apparent distress; Negative for average body habitus, healthy appearing or well nourished Constitutional Narrative: Thin, upper middle-aged, white female, who appears older than stated age, sitting up in bed, watching television, spouse at bedside, appears comfortable and nontoxic, on her baseline oxygen at 2 L HEENT normocephalic, head/scalp atraumatic and moist oral mucous membranes HEENT Narrative: No thrush Neck Neck Narrative: Positive JVD Resp normal respiratory effort, no retractions, no use of accessory muscles and clear to auscultation bilaterally Resp Narrative: Diffusely diminished but clear Auscultation: Negative for crackles, rhonchi or wheezes Cardio regular rate, regular rhythm, S1 normal heart sound, S2 normal heart sound, no murmurs, no rub, no gallops and no clicks GI normal to inspection, nondistended, normoactive bowel sounds, soft to palpation and non-tender GI Narrative: Scaphoid abdomen Extremity no clubbing, cyanosis or edema Extremity Narrative: Right upper extremity fistula which has a thrill bruit and thrill, currently accessed for dialysis, decreased lean muscle mass Neuro moves all extremities and no focal motor deficits Neuro Narrative: Markedly hard of hearing Speech: speech normal Psych affect normal Psych Narrative: Eye contact is good, patient interacts appropriately, affect is slightly flat but appropriate for current situation Mood & Affect: anxious Assessment & Plan Assessment/Plan (1) Cachexia: (2) Dialysis AV fistula malfunction: (3) Elevated troponin I level: (4) End stage renal disease: (5) Dyspnea: PLAN: Plan Malfunctioning dialysis access - Fistula does show stenosis and patient will be taken for intervention likely tomorrow 06/01/2025 - patient was able to be run but had pain with higher flows - Will want to run dialysis here prior to discharge as she is home dialysis and want to ensure she does not have any issues after fistulogram has been performed Acute on chronic hypoxic and hypercapnic respiratory failure/COPD -Suspect hypercapnia was related to low-dose Ativan increased work of breathing -Avoid any sedating medications -Patient is now weaned off BiPAP and back to her baseline oxygen requirement so acute issue has resolved with intervention yesterday - Continue home inhalers - Patient is on 2 to 3 L at baseline chronically and currently on 2 L with oxygen saturations at 99% - Will check ambulatory pulse ox prior to discharge - Blood cultures are pending - Respiratory viral panel is negative - COVID is negative Elevated troponin - Secondary to demand ischemia with acute hypoxia related to volume overload and in the setting of CKD with decreased clearance - No further workup at this time Volume overloaded/shortness of breath - Secondary to problematic fistula - Resolved with fluid removal - Ongoing dialysis per nephrology - Patient is on her baseline oxygen Cachexia - Does not meet criteria for severe or moderate malnutrition - Patient is underweight with a BMI of 16.3 - Continue supplements - Dietitian is following CAD/essential hypertension/hyperlipidemia - Continue to hold Plavix and aspirin until vascular interventions are completed then restart - continue home statin - Continue home metoprolol - Continue home amlodipine ESRD - 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 - HD per nephrology Chronic anemia secondary to renal disease - Hemoglobin remains stable DM-2 - Continue home insulin pump - Continue outpatient follow-up after discharge with endocrinology - Accu-Cheks as ordered DVT prophylaxis - Continue subcu heparin twice daily CODE STATUS - Full code Charges/Coding Visit Charges Inpatient E&M: 39112 Subs Hosp L2
[2025-05-31] MEDS: ROFLUMILAST 500 MCG TABLET PO (08:56)
[2025-05-31] MEDS: SEVELAMER CARBONATE 800 MG TABLET PO ×3 (08:56→16:48)
--- NOTE | 2025-05-31 18:11 | PN.SURG_ITS ---
Subjective Subjective Feeling better today, much more alert. Did not attempt HD today since successful yesterday Objective Data Objective Data A&O x 3, NAD RRR Resp non labored +thrill adjacent to AC fossa, diminished more cephalad by mid upper arm Vital Signs: Vital Signs Temp Pulse Resp BP Pulse Ox O2 Del Method O2 Flow Rate 97.1 F L 62 20 H 124/42 H 95 Nasal Cannula 2 05/31/25 17:00 05/31/25 17:00 05/31/25 17:00 05/31/25 17:00 05/31/25 17:00 05/31/25 17:00 05/31/25 17:00 Oxygen Flow Rate (L/min) 2 Oxygen Delivery Method Nasal Cannula Weight: 100 lb 15.547 oz Body Mass Index (BMI) 16.2 Intake & Output: Intake and Output for Last 24 Hours 05/29/25 05/30/25 05/31/25 23:59 23:59 23:59 Intake Total 1070 / 1070 480 / 480 Output Total 2780 / 2780 Balance 1070 / 1070 -2780 / -2780 480 / 480 Medical Nutrition Assessment Dietitian: Malnutrition Criteria Met Start: 05/30/25 11:40 Freq: Status: Active Protocol: Document 05/30/25 11:41 RMA (Rec: 05/30/25 11:41 RMA [id number]) Nutrition Malnutrition Evidence of Yes Malnutrition Exists Malnutrition ( Chronic moderate): Evidenced By Suboptimal Energy Intake (Moderate),Physical Changes ( Moderate) Clinical Problem Chronic Disease or Condition Related Malnutrition Etiology moderate pro-korye malnutrition in the context of chronic disease related to chronic kidney disease, inadequate oral/energy intake and underweight status Signs/Symptoms as evidenced by BMI 17.0, PO meeting less than 75% estimated nutrition needs and muscle wasting/fat depletion in the clavicle, arms and legs; fluid weight masking muscle weight loss Status Active Problem Altered Nutrient-Related Laboratory Values Etiology (BUN, creatinine and GFR) related to ESRD/CKD Signs/Symptoms as evidenced by BUN level of 55, creatinine level of 4. 05 and GFR of 12. Status Active Problem Recommendation Dietitian Recommend resume PO with 2000 calorie/consistent Recommendations/ carbohydrate; Renal diet. Changes Pt dislikes PO Nepro; but agrees to trying some Beneprotein for tolerance. Lab / Micro Data 05/31/25 04:48 05/31/25 04:48 Labs: Laboratory Results - last 24 hr 05/30/25 17:18: POC Glucose 187 H 05/30/25 18:45: Urine Color Straw, Urine Clarity Clear, Urine pH 6.0, Ur Specific [place] 1.020, Urine Protein 500 H, Urine Glucose (UA) 100 H, Urine Ketones Negative, Urine Occult Blood 25 H, Urine Nitrite Negative, Urine Bilirubin Negative, Urine Urobilinogen Normal, Ur Leukocyte Esterase 25 H, Urine RBC 0-5 SEEN, Urine WBC 0-5 SEEN, Ur Squamous Epith Cells 0-5 SEEN, Urine Bacteria 0 SEEN, Urine Mucus 0 SEEN 05/30/25 22:03: POC Glucose 264 H 05/31/25 04:48: WBC 4.6, RBC 3.29 L, Hgb 9.4 L, Hct 31.6 L, MCV 96.0, MCH 28.6, MCHC 29.7 L, RDW Std Deviation 52.3 H, RDW Coeff of Iron 15.1 H, Plt Count 169, MPV 9.1, Immature Gran % (Auto) 0.700, Neut % (Auto) 69.9, Lymph % (Auto) 15.5 L , [place] % (Auto) 9.6, Eos % (Auto) 3.9, Baso % (Auto) 0.4, Absolute Neuts (auto) 3.2, Absolute Lymphs (auto) 0.71 L, Nucleated RBC % 0, Sodium 133, Potassium 5.1, Chloride 95 L, Carbon Dioxide 22.1, Anion Gap 16 H, BUN 54 H, Creatinine 3.48 H, Estim Creat Clear Calc 11.65 L, Est GFR (MDRD) Non-Af 14 L, BUN/Creatinine Ratio 15.5, Glucose 265 H, Calcium 8.5, Phosphorus 5.9 H, Magnesium 2.2 05/31/25 06:43: POC Glucose 226 H 05/31/25 15:56: POC Glucose 275 H 05/31/25 16:30: POC Glucose 276 H Micro: Microbiology 05/30/25 16:06 Mucosa - Nasopharyngeal Coronavirus COVID-19 PCR - Final 05/30/25 16:06 Mucosa - Nasopharyngeal Respiratory Panel (PCR) - Final Rhythm Strip Rhythm Strip: Sinus Rhythm Rate: 70 Ectopy: None Assessment & Plan Assessment/Plan (1) Arteriovenous fistula stenosis: QUALIFIERS: Encounter type: subsequent encounter Qualified Code(s): T82.858D - Stenosis of other vascular prosthetic devices, implants and grafts, subsequent encounter PLAN: -npo at midnight -fistulagram tomorrow -plan to use in afternoon if successful intervention then dc Charges/Coding Visit Charges Inpatient E&M: 15284 Subs Hosp L2
[2025-05-31] MEDS: MELATONIN 10 MG TABLET 5 MG PO (22:11)
[2025-06-01] VITALS (17 sets, daily range): BP systolic 91–124; BP diastolic 33–84; PULSE 59–65; RESP 16–147; TEMP 36.3–36.6; O2SAT 92–100; BMI 16.6; BMI 16.3
[2025-06-01 05:47] LABS: Hematocrit 31.1 % (37-47); Hemoglobin 9.4 g/dL (12.0-15.0); Mean Corp Hgb Conc 30.2 g/dL (32-36); Mean Corpuscular Volume 93.4 fL (81-99); Mean Platelet Vol. 10.0 fl (6.2-12.0); Platelet Count 202 K/mm3 (150-450); RBC Distribution Width CV 14.6 % (11.6-14.6); RBC Distribution Width SD 48.6 fl (35.1-43.9); Red Blood Count 3.33 M/mm3 (4.2-5.4); White Blood Count 5.4 K/mm3 (4.4-11.0)
--- NOTE | 2025-06-01 05:55 | EKG12_ITS ---
Test Reason : PRE-OP Blood Pressure : */* mmHG Vent. Rate : 63 BPM Atrial Rate : 63 BPM P-R Int : 156 ms QRS Dur : 90 ms QT Int : 438 ms P-R-T Axes : 73 -72 78 degrees QTcB Int : 448 ms Normal sinus rhythm Left axis deviation Anteroseptal infarct (cited on or before 26-Aug-2020) Abnormal ECG When compared with ECG of 27-May-2025 19:15, No significant change was found Confirmed by MODESTO DAIGLE, NICOLA ([id number]), video effects editor [place] ([id number]) on 06/02/2025 6:30:46 AM Referred By: TERRIE Confirmed By: NICOLA SALVADOR MD
[2025-06-01 06:16] LABS: Anion Gap 18 (5-15); BUN 70 mg/dL (4-19); BUN/Creat Ratio 15.2 RATIO (10-20); Calcium,Total 8.3 mg/dL (7.6-11.0); Carbon Dioxide 19.7 mmol/L (21.0-32.0); Chloride 93 mmol/L (98-108); Estimated Creatinine Clearance 9.03 ml/min (50-250); Glucose 255 mg/dL (70-99); Potassium 4.5 mmol/L (3.3-5.1)
--- NOTE | 2025-06-01 07:55 | DS.PCM_ITS ---
Providers Date of Admission: 05/28/25 Date of Discharge: 06/01/25 Primary Care Physician: Dr. Bird Lujan MD Consultations 05/28/25 01:21 Consult: Nephrology Routine Consulting Provider: Christy Huerta Reason for Consult: dialysis EMERGENT Consult: No Notified: Yes Date Notified: 05/28/25 Time Notified: 00:26 Method of Notification: ED Physician Initiated 05/28/25 13:23 Consult: General Surgery Routine Consulting Provider: Brielle Turner Reason for Consult: need for tunneled catheter EMERGENT Consult: No Notified: Yes Date Notified: 05/28/25 Time Notified: 13:24 Method of Notification: Verbal 05/28/25 15:26 Consult: Vascular Surgery Routine Consulting Provider: Favian Sinclair Reason for Consult: Nonfunctioning fistula EMERGENT Consult: No Notified: Yes Date Notified: 05/28/25 Time Notified: 15:27 Method of Notification: Verbal Reason For Visit: CHF EXACERBATION Diagnosis Discharge Diagnosis (1) Arteriovenous fistula stenosis: Status: Acute Code(s): T82.858A - Stenosis of other vascular prosthetic devices, implants and grafts, initial encounter Qualifiers: Encounter type: subsequent encounter Qualified Code(s): T82.858D - Stenosis of other vascular prosthetic devices, implants and grafts, subsequent encounter Medications at Discharge Home Medications simvastatin 40 mg tablet 40 mg PO QHS cholesterol 06/21/18 albuterol sulfate 2.5 mg/3 mL (0.083 %) solution for nebulization 2.5 mg (3 mL) inhalation Q2H PRN PRN dyspnea, wheezing ##1 06/23/18 aspirin 81 mg tablet,delayed release 81 mg PO DAILY heart health 12/31/19 oxygen See Rx Instructions NASAL .COMPLEX O2 therapy 12/03/23 ipratropium 0.5 mg-albuterol 3 mg (2.5 mg base)/3 mL nebulization soln 3 ml inhalation Q4H PRN PRN SOB &/OR WHEEZING #180 mL 12/29/23 denosumab 60 mg/mL subcutaneous syringe (Prolia) 60 mg subcut [id number] bone health #1 mL 06/10/24 clopidogrel 75 mg tablet 75 mg PO DAILY anti platelet #90 tabs 07/26/24 nitroglycerin 0.4 mg sublingual tablet 0.4 mg sublingual Q5-15M PRN chest pain #25 tabs 10/21/24 metoprolol tartrate 50 mg tablet 50 mg PO BID blood pressure #180 tabs 11/11/24 amlodipine 10 mg tablet (Norvasc) 10 mg PO DAILY blood pressure 30 days #30 tabs 11/20/24 buspirone 7.5 mg tablet 7.5 mg PO DAILY Antianxiety 12/14/24 sevelamer carbonate 800 mg tablet 800 mg PO TID PRN To lower Phosphorus 12/14/24 cefdinir 300 mg capsule 300 mg PO BID 5 days #10 caps 01/06/25 pseudoephedrine-guaifenesin ER 60 mg-600 mg tablet,extend release 12hr (Mucinex D) 1 tab PO BID cold symptoms #14 tabs 01/06/25 blood-glucose sensor ([employer] Eileen 2 Plus Sensor device) #6 ea 02/09/25 insulin pump cart,auto,BT,G6/L (Omnipod 5 (G6/Eileen 2 Plus) subcutaneous cartridge) #30 ea 02/09/25 albuterol sulfate 90 mcg/actuation aerosol inhaler 2 puff inhalation Q6H PRN PRN Cough #8.5 grams 03/14/25 blood-glucose sensor ([employer] G6 Sensor device) #3 ea 04/07/25 blood-glucose transmitter ([employer] G6 Transmitter device) #1 ea 04/07/25 insulin lispro 100 unit/mL subcutaneous solution (Humalog U-100 Insulin) 60 unit (0.6 mL) continuous subcutaneous infusion .continuous #54 mL 04/07/25 ondansetron 4 mg disintegrating tablet 4 mg PO Q8H PRN PRN Nausea #10 tabs 05/08/25 roflumilast 500 mcg tablet (Daliresp) 500 mcg PO DAILY breathing #30 tabs 05/11/25 fluticasone fur. 200 mcg-umeclid 62.5 mcg-vilant 25 mcg inhalat.powder (Trelegy Ellipta) 1 inh inhalation DAILY breathing #3 ea 05/18/25 calcitriol 0.5 mcg capsule 0.5 mcg PO DAILY supplement 05/31/25 potassium chloride 20 mEq tablet,extended release(part/cryst) 20 meq PO BID potassium 05/31/25 Hospital Course Operations - (Fistulogram with dilation due to stenosis) Procedures Dialysis and - (Chest x-ray/AV fistula ultrasound) Summary of Care Provided Minutes Spent on Discharge: 38 Hospital Course: Mrs. Deng is a 64-year-old white female with a history of chronic hypoxic respiratory failure secondary to COPD and end-stage renal disease that is HD dependent who presented to the emergency department at [facility] complaining of shortness of breath.. She also complained of some brief intermittent substernal chest discomfort. She states she has a chronic cough that is a little bit worse but not productive. She states her symptoms of shortness of breath are worse when she lies down. She did albuterol nebulizers at home and it helped a little bit but not much. She denied fever or chills. She does home HD which is a relatively new thing for her with regards to her right upper extremity fistula. Her previous dialysis sessions have not been problematic however when she tried dialysis on the day of presentation the venous return line was causing severe pain and the machine was indicating high pressures. They called the dialysis clinic and she was instructed to come the emergency department. Patient did admit to drinking more fluid than typical at home over the last few days. Vital signs on presentation showed a temperature of 98.3, heart rate 71, respiratory was 20, blood pressure was 166/66 and pulse ox wa 100 % on 3 L nasal cannula which is her baseline. CBC was unremarkable except for a chronic stable anemia. Chemistry panel was consistent with previous labs with her CKD. Her initial troponin was 135 with a delta of 133. Chest x-ray showed volume overload. EKG showed normal sinus rhythm with normal intervals and no ectopy. There were no changes consistent with acute ischemia. Given the issues with her dialysis and her fistula as well as her shortness of breath she was admitted. The initial plan was to put a tunneled dialysis catheter in however this procedure was canceled as they were able to cannulate her fistula. Patient did continue to have pain with cannulation of the fistula and an ultrasound of her fistula was performed and showed abnormal flow. Vascular surgery was consulted and she was taken for a fistulogram on 06/01/2025 at which time she was found to have a severe stenosis. This was opened up. Dialysis was run post procedure and the patient tolerated the procedure well without any issues with flow or pain. Given her improved function of her fistula she was able to be discharged home after dialysis on 06/01/2025. Patient did develop some somnolence after dialysis initially. She was very anxious and was given a very low-dose of Ativan however she appeared to be get hypercapnia with an elevated CO2 and a mild respiratory acidosis. This resolved fairly quickly with treatment of BiPAP and completion of dialysis. Otherwise she was on her baseline oxygen of 3 L and stable throughout her hospitalization. She will follow-up with Dr. Sinclair from vascular surgery in 2 weeks. She will need to follow-up with Dr. Huerta from nephrology as previously directed by her. I will have her follow-up with her primary care physician within the next week. No medication changes were made at the time of discharge. She was discharged in stable condition and is to continue her home dialysis as previously directed. Discharge diagnoses: Malfunctioning dialysis fistula Acute on chronic hypoxic and hypercapnic respiratory failure Elevated troponin secondary to demand ischemia and decreased clearance with end- stage renal disease Volume overload secondary to inefficient dialysis Shortness of breath Cachexia CAD Essential hypertension Hyperlipidemia He has RD Chronic anemia secondary to renal disease DM-1 Physical Exam Const alert, oriented x3 and no apparent distress; Negative for average body habitus, healthy appearing or well nourished Constitutional Narrative: Thin, upper middle-aged, white female, who appears older than stated age returning from fistulogram and getting ready to go on dialysis, appears comfortable, nontoxic, spouse at bedside, patient is slightly tired from sedation given during procedure General Appearance: cooperative, well kempt and well developed Orientation / Consciousness: awake, oriented to person, oriented to place and oriented to time HEENT normocephalic, head/scalp atraumatic and moist oral mucous membranes; Negative for hearing grossly normal bilaterally HEENT Narrative: Marked hearing loss, Mallampati 1-2, no thrush Eyes Eyes Narrative: No scleral icterus Neck supple Neck Narrative: Trachea midline Resp normal respiratory effort, no retractions, no use of accessory muscles and clear to auscultation bilaterally Resp Narrative: Few crackles at bases bilaterally Auscultation: rales bilateral base; Negative for crackles, rhonchi or wheezes Cardio regular rate, regular rhythm, S1 normal heart sound, S2 normal heart sound, no murmurs, no rub, no gallops and no clicks GI normal to inspection, nondistended, normoactive bowel sounds, soft to palpation and non-tender GI Narrative: Scaphoid abdomen Extremity no clubbing, cyanosis or edema Extremity Narrative: Right upper extremity fistula which has a thrill bruit and thrill, intervention site covered in clean dry and intact, no signs of swelling or ecchymosis, decreased lean muscle mass Skin no jaundice, no petechiae and no mottling Skin Narrative: Ecchymosis on right anterior chest area Neuro oriented x3, moves all extremities and no focal motor deficits Neuro Narrative: Markedly hard of hearing which limits exam some Speech: speech normal Psych affect normal Psych Narrative: Eye contact is good, patient interacts appropriately, affect is slightly flat but appropriate for current situation Mood & Affect: anxious Medical Records Data Medical Nutrition Assessment Dietitian: Malnutrition Criteria Met Start: 05/30/25 11:40 Freq: Status: Active Protocol: Document 05/30/25 11:41 RMA (Rec: 05/30/25 11:41 RMA [id number]) Nutrition Malnutrition Evidence of Yes Malnutrition Exists Malnutrition ( Chronic moderate): Evidenced By Suboptimal Energy Intake (Moderate),Physical Changes ( Moderate) Clinical Problem Chronic Disease or Condition Related Malnutrition Etiology moderate pro-korey malnutrition in the context of chronic disease related to chronic kidney disease, inadequate oral/energy intake and underweight status Signs/Symptoms as evidenced by BMI 17.0, PO meeting less than 75% estimated nutrition needs and muscle wasting/fat depletion in the clavicle, arms and legs; fluid weight masking muscle weight loss Status Active Problem Altered Nutrient-Related Laboratory Values Etiology (BUN, creatinine and GFR) related to ESRD/CKD Signs/Symptoms as evidenced by BUN level of 55, creatinine level of 4. 05 and GFR of 12. Status Active Problem Recommendation Dietitian Recommend resume PO with 2000 calorie/consistent Recommendations/ carbohydrate; Renal diet. Changes Pt dislikes PO Nepro; but agrees to trying some Beneprotein for tolerance. Weight / BMI Weight Weight: 46.7 kg Body Mass Index (BMI) 16.6 ABG / Lab / Microbiology Data 06/01/25 05:31 06/01/25 05:31 Laboratory: Laboratory Results - last 24 hr 05/31/25 11:43: POC Glucose 318 H 05/31/25 15:56: POC Glucose 275 H 05/31/25 16:30: POC Glucose 276 H 05/31/25 22:07: POC Glucose 270 H 06/01/25 05:31: WBC 5.4, RBC 3.33 L, Hgb 9.4 L, Hct 31.1 L, MCV 93.4, MCH 28.2, MCHC 30.2 L, RDW Std Deviation 48.6 H, RDW Coeff of Rion 14.6, Plt Count 202, MPV 10.0, Sodium 131 L, Potassium 4.5, Chloride 93 L, Carbon Dioxide 19.7 L, Anion Gap 18 H, BUN 70 H, Creatinine 4.58 H, Estim Creat Clear Calc 9.03 L*, Est GFR (MDRD) Non-Af 10 L, BUN/Creatinine Ratio 15.2, Glucose 255 H, Hemoglobin A1c 5.9 H, Calcium 8.3 06/01/25 06:25: POC Glucose 233 H 06/01/25 13:03: POC Glucose 274 H Microbiology: Microbiology 05/30/25 16:06 Mucosa - Nasopharyngeal Coronavirus COVID-19 PCR - Final 05/30/25 16:06 Mucosa - Nasopharyngeal Respiratory Panel (PCR) - Final D/C Instructions Discharge Activity: Return to Normal Activity Cleanse incision/area with: Keep Dressing Clean & Dry DC O2, CPAP, BIPAP Needs Home O2 Discharge instructions: Yes Type of respiratory needs?: Oxygen Oxygen frequency: Continuous Continuous oxygen liters per minute: 3 DC home with Oxygen: Yes Home O2 MD Review: I have reviewed the oxygen testing, and the patient qualifies for home oxygen equipment and portability. The patient is mobile in the home and the community. Meaningful Use Info Meaningful Use Meaningful Use Diagnoses (Choose all that apply): None applicable Discharge Plan Admission Admit Date/Time: 05/28/25 00:21 Primary Reason for Your Visit: Shortness of breath Attending Provider: Stacy Huerta Primary Care Provider: Bird Lujan Consulting Providers: Christy Huerta; Favian Nicholas; Brielle Turner; Fvaian Sinclair; Khai Bullard Discharge Orders/Prescriptions Prescriptions: Continued aspirin 81 mg tablet,delayed release (DR/EC) 81 mg PO DAILY oxygen See Rx Instructions NASAL .COMPLEX Rx Instructions: 3L NASALLY; 3 l Trelegy Ellipta 200-62.5-25 mcg blister with device 1 inh inhalation DAILY Qty: 3 3RF simvastatin 40 MG tablet 40 mg PO QHS albuterol sulfate 2.5 MG/3 ML solution for nebulization 2.5 mg INHALATION Q2H PRN PRN (Reason: dyspnea, wheezing) Qty: 1 0RF amlodipine [Norvasc] 10 mg tablet 10 mg PO DAILY 30 Days Qty: 30 0RF sevelamer carbonate 800 mg tablet 800 mg PO TID PRN (Reason: To lower Phosphorus) buspirone 7.5 mg tablet 7.5 mg PO DAILY Patient Comments: PT ONLY WANTS TO TAKE ONCE PER DAY cefdinir 300 mg capsule 300 mg PO BID 5 Days Qty: 10 0RF pseudoephedrine-guaifenesin [Mucinex D] 60-600 mg tablet extended release 12 hr 1 tab PO BID Qty: 14 0RF potassium chloride 20 mEq tablet,ER particles/crystals 20 meq PO BID calcitriol 0.5 mcg capsule 0.5 mcg PO DAILY ondansetron 4 mg tablet,disintegrating 4 mg PO Q8H PRN PRN (Reason: Nausea) Qty: 10 0RF ipratropium-albuterol 0.5 mg-3 mg(2.5 mg base)/3 mL solution for nebulization 3 ml inhalation Q4H PRN PRN (Reason: SOB &/OR WHEEZING) Qty: 180 6RF Prolia 60 mg/mL syringe 60 mg subcut [id number] Qty: 1 1RF Patient Comments: Next injection is 01/06/2025 clopidogrel 75 mg tablet 75 mg PO DAILY Qty: 90 3RF nitroglycerin 0.4 mg tablet, sublingual 0.4 mg SUBLINGUAL Q5-15M PRN (Reason: chest pain) Qty: 25 44RF Rx Instructions: until response; do not exceed 3 doses per episode metoprolol tartrate 50 mg tablet 50 mg PO BID Qty: 180 3RF (DME) FreeStyle Eileen 2 Plus Sensor Device See Rx Instructions .Route Qty: 6 2RF Rx Instructions: 1 sensor q 15 days (DME) Omnipod 5 (G6/Eileen 2 Plus) Cartridge See Rx Instructions .Route Qty: 30 2RF Rx Instructions: 1 pod q 3 days, must be compatible with eileen 2 plus albuterol sulfate 90 mcg/actuation HFA aerosol inhaler 2 puff INHALATION Q6H PRN PRN (Reason: Cough) Qty: 8.5 2RF insulin lispro [Humalog U-100 Insulin] 100 unit/mL solution 60 unit continuous subcutaneous infusion .continuous Qty: 54 1RF Rx Instructions: via insulin pump Advised to increase the insulin pump (DME) Dexcom G6 Sensor Device See Rx Instructions .Route Qty: 3 5RF Rx Instructions: 1 sensor q 10 days (DME) Dexcom G6 Transmitter Device See Rx Instructions .Route Qty: 1 1RF Rx Instructions: 1 transmitter q 90 days roflumilast [Daliresp] 500 mcg tablet 500 mcg PO DAILY Qty: 30 11RF Referrals / Follow Up: Christy Huerta DO [Med Staff - Consulting] - See Referral Note (As directed by Dr. Huerta) Bird Lujan MD [Primary Care Provider] - In 1 Week Favian Sinclair MD [Med Staff - Active Staff] - Within 1 Week Disposition Disposition (needs filled in before D/C Order can be placed): Home, Self Care Charges/Coding Visit Charges Inpatient E&M: 70017 Disch Hosp >30min
--- NOTE | 2025-06-01 08:11 | PN.RENAL_ITS ---
Subjective Subjective fistulogram today. Oxygenation stable on NC. Spouse as bedside. Pt complaining of waiting 10 hours for her surgery. Objective Data Objective Data Vital Signs: Vital Signs Temp Pulse Resp BP Pulse Ox O2 Del Method O2 Flow Rate 97.7 F L 62 20 H 124/41 H 94 Nasal Cannula 2 06/01/25 04:08 06/01/25 04:08 06/01/25 04:08 06/01/25 04:08 06/01/25 04:08 06/01/25 04:08 06/01/25 04:08 Oxygen Flow Rate (L/min) 2 Oxygen Delivery Method Nasal Cannula Weight: 46.7 kg Body Mass Index (BMI) 16.6 Intake & Output: Intake and Output for Last 24 Hours 05/30/25 05/31/25 06/01/25 23:59 23:59 23:59 Intake Total 780 / 780 Output Total 2780 / 2780 Balance -2780 / -2780 780 / 780 Medical Nutrition Assessment Dietitian: Malnutrition Criteria Met Start: 05/30/25 11:40 Freq: Status: Active Protocol: Document 05/30/25 11:41 RMA (Rec: 05/30/25 11:41 RMA [id number]) Nutrition Malnutrition Evidence of Yes Malnutrition Exists Malnutrition ( Chronic moderate): Evidenced By Suboptimal Energy Intake (Moderate),Physical Changes ( Moderate) Clinical Problem Chronic Disease or Condition Related Malnutrition Etiology moderate pro-korey malnutrition in the context of chronic disease related to chronic kidney disease, inadequate oral/energy intake and underweight status Signs/Symptoms as evidenced by BMI 17.0, PO meeting less than 75% estimated nutrition needs and muscle wasting/fat depletion in the clavicle, arms and legs; fluid weight masking muscle weight loss Status Active Problem Altered Nutrient-Related Laboratory Values Etiology (BUN, creatinine and GFR) related to ESRD/CKD Signs/Symptoms as evidenced by BUN level of 55, creatinine level of 4. 05 and GFR of 12. Status Active Problem Recommendation Dietitian Recommend resume PO with 2000 calorie/consistent Recommendations/ carbohydrate; Renal diet. Changes Pt dislikes PO Nepro; but agrees to trying some Beneprotein for tolerance. Lab / Micro Data 06/01/25 05:31 06/01/25 05:31 Labs: Laboratory Results - last 24 hr 05/31/25 06:43: POC Glucose 226 H 05/31/25 11:43: POC Glucose 318 H 05/31/25 15:56: POC Glucose 275 H 05/31/25 16:30: POC Glucose 276 H 05/31/25 22:07: POC Glucose 270 H 06/01/25 05:31: WBC 5.4, RBC 3.33 L, Hgb 9.4 L, Hct 31.1 L, MCV 93.4, MCH 28.2, MCHC 30.2 L, RDW Std Deviation 48.6 H, RDW Coeff of Iron 14.6, Plt Count 202, MPV 10.0, Sodium 131 L, Potassium 4.5, Chloride 93 L, Carbon Dioxide 19.7 L, Anion Gap 18 H, BUN 70 H, Creatinine 4.58 H, Estim Creat Clear Calc 9.03 L*, Est GFR (MDRD) Non-Af 10 L, BUN/Creatinine Ratio 15.2, Glucose 255 H, Hemoglobin A1c 5.9 H, Calcium 8.3 06/01/25 06:25: POC Glucose 233 H Micro: Microbiology 05/30/25 16:06 Mucosa - Nasopharyngeal Coronavirus COVID-19 PCR - Final 05/30/25 16:06 Mucosa - Nasopharyngeal Respiratory Panel (PCR) - Final Rhythm Strip Rhythm Strip: Sinus Rhythm Rate: 70 Ectopy: None Physical Exam Const alert and oriented x3 General Appearance: frail Resp Resp Narrative: faint basilar crackles Cardio regular rate GI non-tender and non-distended Auscultation: normoactive bowel sounds Palpation: soft Extremity Extremity Narrative: thrill and bruit General Extremity: AV fistula Assessment & Plan Assessment/Plan (1) ESRD (end stage renal disease) on dialysis: PLAN: due to diabetes on home hemodialysis 4x/wk. Last dialysis Friday. Difficulty with access use Friday and Friday Currently on dialysis with 16g needles. Pain with blood flow at 300, dropped to 250 blood flow. (2) Dialysis AV fistula malfunction: PLAN: evaluate for stenosis (3) Essential (primary) hypertension: PLAN: stable (4) Chronic obstructive pulmonary disease: QUALIFIERS: COPD type: unspecified COPD Qualified Code(s): J44.9 - Chronic obstructive pulmonary disease, unspecified PLAN: hx tobacco use (5) DM type 1 (diabetes mellitus, type 1): QUALIFIERS: Diabetes mellitus complication status: with kidney complications Diabetes mellitus complication detail: with chronic kidney disease Chronic kidney disease stage: stage 4 (severe) Qualified Code(s): E 10.22 - Type 1 diabetes mellitus with diabetic chronic kidney disease; N18.4 - Chronic kidney disease, stage 4 (severe) (6) Hypertension: QUALIFIERS: Hypertension type: unspecified Qualified Code(s): I10 - Essential (primary) hypertension
[2025-06-01] MEDS: 0.9% Normal Saline 1,000 ML IV.SOLN. 1000 ML OPERA.SITE (14:50)
[2025-06-01] MEDS: PureFlow B 2K Dialysis Soln 1 BAG 6 BAG PF (14:51)
--- NOTE | 2025-06-01 16:00 | CASEMGMT ---
Patient has order for discharge. RN CM in to discuss needs at discharge, patient resting, at bedside. denies needs or help at discharge. states he has portable oxygen for at discharge. had no further questions or concerns.
[2025-06-01] MEDS: ROFLUMILAST 500 MCG TABLET PO (16:34)
--- NOTE | 2025-06-01 18:15 | OP.PCM_ITS ---
Operative Report (Standard) Operative Information Date of Procedure: 06/01/25 Pre-Operative Diagnosis: Right upper arm cephalic fistula malfunction, stenosis Post-Operative Diagnosis: Same Surgery/Procedure Performed: Fistulogram with angioplasty electronic prepress technician: No Type of Anesthesia: Local and Sedation,Conscious RN Documented Start/Stop Times: Operation Date: 05/30/25 08:00 <No data on this case meets the specified criteria> Procedure Start Time: 11:50 Procedure Stop Time: 12:15 Select all DRAINS/GRAFTS/IMPLANTS that apply: None Estimated Blood Loss: 7 Specimen collected: No Description of surgery: HPI: Patient is a 64-year-old female with a right upper arm AV fistula which has been recently come painful above the venous return needle and has had some difficulty with access. She had a duplex which revealed proximal fistula stenosis. She is taken now for fistulogram with possible intervention. Description of procedure: Upon obtaining informed consent and verification of correct patient procedure and site the patient was taken the Child Care Coordinator where she was positioned prepped and draped in usual sterile fashion. Timeout was performed to count sedation administered Versed and fentanyl. Skin overlying the proximal fistula is anesthetized 1% lidocaine the vessel accessed and ultrasound guidance with micropuncture needle wire. This is then exchanged for a 7 [place] fistula sheath which was advanced without difficulty. Hand-injection subtraction fistulogram including reflux into the artery anastomosis and outflow to the central venous system and the atriocaval junction was performed. This revealed significant stenosis of greater than 75% in the proximal to mid fistula. A command 18 wire was advanced and a 7 x 4 Diane angio sculpt angioplasty balloon was advanced in position inflated for multiple inflations centered on the lesion. Given adjacent reference vessel size compared to the balloon caliber is felt that a 10 mm x 40 Bard Shilpa tonics balloon was then appropriate size to this advanced in the position and inflated to nominal for 2 minutes and deflated withdrawn. Completion fistulogram revealed satisfactory r esolution of the stenosis with no extravasation or dissection and brisk contrast transit. A nylon pursestring suture was then placed at the access site and the wire and sheath withdrawn followed by 5 minutes of manual pressure with satisfactory stasis observed. The patient was then returned to the PCU for bedrest and recovery. Surgical Findings: See above Complications Complications: No
== END 2025-06-01 17:16 | disposition home or self-care (01) | DRG 628 ==
LOC: ED 05-28 00:16 → PCU 05-28 00:44
PROVIDERS: Internal Medicine; Internal Medicine Nephrology; Surgery Trauma Surgery; Emergency Provider Emergency Medicine; PCP Family Medicine; Visit Provider Internal Medicine
DX: E87.70 Fluid overload, unspecified (principal); N18.6 End stage renal disease; J96.22 Acute and chronic respiratory failure with hypercapnia; J96.21 Acute and chronic respiratory failure with hypoxia; I12.0 Hypertensive chronic kidney disease with stage 5 chronic kidney disease or end stage renal disease; I24.89 Other forms of acute ischemic heart disease; R64 Cachexia; T82.41XA Breakdown (mechanical) of vascular dialysis catheter, initial encounter; Z68.1 Body mass index [BMI] 19.9 or less, adult; D63.1 Anemia in chronic kidney disease; E10.42 Type 1 diabetes mellitus with diabetic polyneuropathy; J44.9 Chronic obstructive pulmonary disease, unspecified; Z99.2 Dependence on renal dialysis; E10.22 Type 1 diabetes mellitus with diabetic chronic kidney disease; Z79.4 Long term (current) use of insulin; I25.10 Atherosclerotic heart disease of native coronary artery without angina pectoris; E10.21 Type 1 diabetes mellitus with diabetic nephropathy; I25.2 Old myocardial infarction; Z79.51 Long term (current) use of inhaled steroids; Z79.899 Other long term (current) drug therapy; Z79.82 Long term (current) use of aspirin; Z79.02 Long term (current) use of antithrombotics/antiplatelets; Z83.3 Family history of diabetes mellitus; Z87.891 Personal history of nicotine dependence; Z95.5 Presence of coronary angioplasty implant and graft; X58.XXXA Exposure to other specified factors, initial encounter
CPT/HCPCS: 36415; 36600; 36902; 71045; 76937; 80048; 80069; 81001; 82803; 82962; 83036; 83735; 83880; 84100; 84484; 85025; 85027; 85652; 86140; 87040; 87633; 87635; 90937; 93005; 93990; 94640; 94762; 97802; 99152; 99153; 99285; 99406; C1725; C1769; C1894; C2623; Q9967; A4216; G0257; J1938

== ENCOUNTER 2025-06-02 04:21 | Inpatient (IN) | payer MEDICARE, OTHER, SELFPAY ==
[2025-06-02] VITALS (47 sets, daily range): BP systolic 68–164; BP diastolic 32–68; PULSE 49–72; RESP 12–25; TEMP 34.8–36.7; O2SAT 90–100; BMI 17.6; BMI 17.9; BMI 17.4
[2025-06-02 04:54] LABS: Hematocrit 29.2 % (37-47); Hemoglobin 8.4 g/dL (12.0-15.0); Immature Granulocytes Count 0.040 X10^3/uL (0.0-0.0); Mean Corp Hgb Conc 28.8 g/dL (32-36); Mean Corpuscular Volume 99.0 fL (81-99); Mean Platelet Vol. 9.9 fl (6.2-12.0); NRBC Flagged by Analyzer 0.5 % (0-5); POSITIVE DIFFERENTIAL YES; Platelet Count 237 K/mm3 (150-450); RBC Distribution Width CV 15.4 % (11.6-14.6); RBC Distribution Width SD 53.7 fl (35.1-43.9); Red Blood Count 2.95 M/mm3 (4.2-5.4); White Blood Count 7.3 K/mm3 (4.4-11.0)
--- NOTE | 2025-06-02 04:54 | EDS_ITS ---
HPI History of Present Illness Chief Complaint: Shortness of Breath Informant: patient and spouse/S.O. Narrative Narrative: Patient 64-year-old female with history of end-stage renal disease, chronic respiratory failure on 3 L of oxygen at baseline, type 1 diabetes mellitus presenting for confusion and concern for low oxygen. Patient was actually discharged from the hospital yesterday (did receive hemodialysis). She been hospitalized for fluid overload, shortness of breath and fistula stenosis. She underwent fistulogram with angioplasty and had balloon dilation. states that she has been very fatigued and weak since being home. She was sleeping with her CPAP on when the power went out. The CPAP switched to battery power however she was not receiving supplemental oxygen. felt that she was difficult to awake and he could not get a pulse ox reading on her. He called EMS. He did switch her to portable oxygen. She was 85-90% on room 2 when EMS arrived. She is brought to the ER for further ration. Patient has no complaints but is quite sleepy. No other complaints or concerns reported at this time. She has not put her insulin pump back on either since being home as she just got home yesterday. [facility] Medical History Chronic hypoxic respiratory failure On home oxygen therapy Wears hearing aid Wears glasses Post-menopausal Insulin dependent diabetes mellitus Diabetes History of renal dialysis History of renal disease Anemia High cholesterol Easy bruising Excessive bleeding Injury of head and neck Former smoker Emphysema, unspecified History of edema History of echocardiogram History of stress test Cardiology follow-up encounter Osteoporosis Presence of insulin pump Severely underweight adult Lung nodule, multiple Nicotine abuse Lung nodule, solitary Fissure in skin of foot Adrian's sign present Tobacco abuse CKD (chronic kidney disease) stage 4, GFR 15-29 ml/min Body mass index (BMI) less than 16.5 Underweight Polyneuropathy due to type 1 diabetes mellitus Stage 4 chronic kidney disease due to type 1 diabetes mellitus Respiratory failure with hypoxia Smoking greater than 30 pack years Anemia Diabetic nephropathy, type I Hyperkalemia Renal insufficiency Diabetes Chronic obstructive pulmonary disease Essential (primary) hypertension Hypersomnia Anxiety Depression Atherosclerosis of coronary artery of [place] heart without angina pectoris NSTEMI (non-ST elevated myocardial infarction) (01/12/18) DM type 1 (diabetes mellitus, type 1) Hyperlipidemia COPD (chronic obstructive pulmonary disease) Home Medications ?Medication ?Instructions ?Recorded ?Last Taken ?Type simvastatin 40 mg tablet 40 mg PO QHS cholesterol 01/03/25 History albuterol sulfate 2.5 mg/3 mL 2.5 mg (3 mL) inhalation Q2H PRN 06/23/18 Unknown Rx (0.083 %) solution for nebulization PRN dyspnea, wheez ing ##1 aspirin 81 mg tablet,delayed 81 mg PO DAILY heart heal th 12/31/19 01/03/25 History release oxygen See Rx Instructions NASAL .C OMPLEX 12/03/23 01/04/25 History O2 therapy ipratropium 0.5 mg-albuterol 3 mg 3 ml inhalation Q4H PRN PRN SOB 12/29/23 Unknown Rx (2.5 mg base)/3 mL nebulization &/OR WHEEZING #180 mL soln denosumab 60 mg/mL subcutaneous 60 mg subcut [id number] bone health 06/10/24 07/09/24 Rx syringe (Prolia) #1 mL clopidogrel 75 mg tablet 75 mg PO DAILY anti platelet #90 07/26/24 01/03/25 Rx tabs nitroglycerin 0.4 mg sublingual 0.4 mg sublingual Q5-1 5M PRN chest 10/21/24 Unknown Rx tablet pain #25 tabs metoprolol tartrate 50 mg tablet 50 mg PO BID blood pr essure #180 11/11/24 01/03/25 Rx tabs amlodipine 10 mg tablet (Norvasc) 10 mg PO DAILY blood pressure 30 11/20/24 01/03/25 Rx days #30 tabs buspirone 7.5 mg tablet 7.5 mg PO DAILY Antianxiety 12/14/24 01/03/25 History sevelamer carbonate 800 mg tablet 800 mg PO TID PRN To lower 12/14/24 01/03/25 History Phosphorus blood-glucose sensor (FreeStyle #6 ea 02/09/25 Unknown Rx Juhi 2 Plus Sensor device) insulin pump cart,auto,BT,G6/L #30 ea 02/09/25 Unknown Rx (Omnipod 5 (G6/Juhi 2 Plus) subcutaneous cartridge) albuterol sulfate 90 mcg/actuation 2 puff inhalation Q 6H PRN PRN 03/14/25 Unknown Rx aerosol inhaler Cough #8.5 grams blood-glucose sensor (Dexcom G6 #3 ea 04/07/25 Unknown Rx Sensor device) blood-glucose transmitter (Dexcom #1 ea 04/07/25 Unkno wn Rx G6 Transmitter device) insulin lispro 100 unit/mL 60 unit (0.6 mL) continuous 04/07/25 Unknown Rx subcutaneous solution (Humalog subcutaneous infusion . continuous U-100 Insulin) #54 mL ondansetron 4 mg disintegrating 4 mg PO Q8H PRN PRN Na usea #10 tabs 05/08/25 Unknown Rx tablet roflumilast 500 mcg tablet 500 mcg PO DAILY breathing #30 tabs 05/11/25 Unknown Rx (Daliresp) fluticasone fur. 200 mcg-umeclid 1 inh inhalation HAJA Y breathing 05/18/25 Unknown Rx 62.5 mcg-vilant 25 mcg #3 ea inhalat.powder (Trelegy Ellipta) calcitriol 0.5 mcg capsule 0.5 mcg PO DAILY supplement 05/31/25 Unknown History potassium chloride 20 mEq 20 meq PO BID potassium 05/04 07/28 Unknown History tablet,extended release(part/cryst) pseudoephedrine-guaifenesin ER 60 1 tab PO BID PRN col d symptoms 06/02/25 Unknown History mg-600 mg tablet,extend release 12hr (Mucinex D) Allergy/AdvReac Type Severity Reaction Status Date / Time No Known Allergies Allergy Verified 05/27/25 19:11 Family History Mother Heart disease COPD (chronic obstructive pulmonary disease) Lupus Daughter Growth disorder Down syndrome Fibromyalgia Grandfather Colon cancer Diabetes Grandmother Heart disease CVA (cerebral vascular accident) Diabetes Pulmonary disease Sister Hypertension Kidney disease Surgical History Hx of surgical procedure History of cardiac catheterization History of coronary artery stent placement Hx of surgical procedure H/O: Hx of appendectomy H/O: hysterectomy History of coronary artery stent placement (02/04/18) Social History household members: spouse housing: house pets and animals: Yes pets and animals: cat(s) Smoking Status: Former smoker how long ago did patient quit smoking: Since 05/2024 cut back and has only had ~ 10 cigarettes since then. quit status: considering quitting alcohol intake: never substance use type: does not use caffeine: Yes Type: carbonated beverages Number of servings: 4 what type of physical activity do you participate in: none seatbelt use: always do you feel safe at home: Yes ROS ROS ED Constitutional Constitutional ED: Reports other Details: Somnolent ; Denies chills or fever(s) Cardiovascular Cardiovascular: Denies chest pain Respiratory/Chest Respiratory/Chest: Denies cough or dyspnea Gastrointestinal Gastrointestinal: Denies vomiting Integumentary Denies rash Neurologic Neurologic: Reports weakness Psychiatric Psychiatric: Denies anxiety Hematologic/Lymphatic Hematologic/Lymphatic: Reports easy bleeding and easy bruising EXAM Physical Exam Const Vital Signs: 06/02/25 04:21 06/02/25 04:45 06/02/25 04:47 Temperature 94.7 F L Temperature Source Axillary Pulse Rate 60 58 L 57 L Respiratory Rate 25 H 24 H 24 H Respiratory Effort Blood Pressure 103/34 L Blood Pressure Mean 57 Pulse Ox 93 100 100 Oxygen Delivery Method Room Air Oxygen Flow Rate (L/min) Fraction of Inspired Oxygen (FIO2) 40 06/02/25 04:52 06/02/25 05:00 06/02/25 05:10 Temperature Temperature Source Pulse Rate 55 L Respiratory Rate 17 Respiratory Effort Short of Breath Blood Pressure 103/45 L Blood Pressure Mean 63 Pulse Ox Oxygen Delivery Method Bi-pap Oxygen Flow Rate (L/min) 40 Fraction of Inspired Oxygen (FIO2) 35 06/02/25 05:15 06/02/25 05:30 06/02/25 05:30 Temperature Temperature Source Pulse Rate 55 L 58 L Respiratory Rate 21 H 20 H Respiratory Effort Blood Pressure 98/37 L 68/56 L Blood Pressure Mean 55 62 Pulse Ox 90 Oxygen Delivery Method Oxygen Flow Rate (L/min) Fraction of Inspired Oxygen (FIO2) 06/02/25 05:38 06/02/25 05:45 06/02/25 06:00 Temperature Temperature Source Pulse Rate 53 L 54 L Respiratory Rate 18 18 Respiratory Effort Blood Pressure 97/37 L 95/41 L 99/35 L Blood Pressure Mean 55 57 55 Pulse Ox Oxygen Delivery Method Oxygen Flow Rate (L/min) Fraction of Inspired Oxygen (FIO2) 06/02/25 06:15 06/02/25 06:30 06/02/25 06:40 Temperature Temperature Source Pulse Rate 54 L 72 55 L Respiratory Rate 16 17 21 H Respiratory Effort Blood Pressure 101/32 L 98/39 L 94/39 L Blood Pressure Mean 53 56 55 Pulse Ox Oxygen Delivery Method Oxygen Flow Rate (L/min) Fraction of Inspired Oxygen (FIO2) 06/02/25 06:45 Temperature Temperature Source Pulse Rate 55 L Respiratory Rate 20 H Respiratory Effort Blood Pressure 98/38 L Blood Pressure Mean 55 Pulse Ox Oxygen Delivery Method Oxygen Flow Rate (L/min) Fraction of Inspired Oxygen (FIO2) Positive cachectic General Appearance ED: cachectic and NAD Nutritional Appearance: cachectic HEENT Reports moist mucous membranes Neck supple Neck Narrative: Positive JVD Chest Wall inspection of chest normal Resp Resp Narrative: Mildly tachypneic. Scattered wheezing present. Cardio regular rate and regular rhythm GI normal to inspection, nondistended, normoactive bowel sounds and non-tender Extremity Extremity Narrative: AV fistula with palpable thrill in the right arm General Extremety ED: Negative for edema General Extremity: Negative for edema Neuro Neuro Narrative: Somnolent but arouses to verbal stimuli. Generally weak. Quickly goes back to sleep. Will answer some questions when pressured. Is A and O x 3. Skin no rashes or lesions noted MDM MDM MDM Narrative Medical decision making narrative: Patient via for concern of shortness of breath and increased somnolence. Her home O2 when out due to power outage. Differential includes hypercapnia, chronic hypoxia, hypoglycemia, hyperglycemia, hyperkalemia and symptomatic anemia. Will check blood gas as well as CBC and BMP. Will as patient is sleeping she is put on BiPAP here as well as 3 L of oxygen. She currently is 93 to 94% on 3 L. VBG shows metabolic acidosis with the patient 7.07, bicarb of 14 and pCO2 of 15. EKG is added on as well as chest x-ray. She is given albuterol treatment. EKG shows peaked T waves. Given that she does have end-stage renal disease and type 1 diabetes concern for underlying metabolic acidosis causing her presentation. CBC is stable within normal limits for the patient. Her BMP shows a glucose of 366, and elevated anion gap of 28, creatinine of 3.92 (consistent with end-stage renal disease) and a potassium of 6.1. Patient ordered hyperkalemic order set as well as acetone level. Chest x-ray shows pulmonary vascular markings, hyperinflation and questionable infiltrate of the right lower lobe. Does not look significantly different from chest x-ray 3 days ago. The patient is in DKA. states that she has not had her insulin pump on since being out of the hospital. Seems that they were missing a piece at home and not able to put it back on. Potassium is elevated at 6.1. EKG did show peaked acuities. As she has end- stage renal disease she is given hyper-K cocktail. She is not given IV fluids because she is end-stage renal disease. She also has elevated anion gap of 28 which is above her baseline significantly. BHB is 8.3. Glucose is 366. This is all consistent with DKA. Patient started on insulin drip. Case is discussed with hospitalist, Dr. Huerta. She states the patient was on her insulin pump while in the hospital so it is not clear why it was taken off. Lab Data Labs: Laboratory Results - last 24 hr 06/02/25 06/02/25 06/02/25 04:45 05:35 05:40 WBC 7.3 RBC 2.95 L Hgb 8.4 L Hct 29.2 L MCV 99.0 D MCH 28.5 MCHC 28.8 L RDW Std Deviation 53.7 H RDW Coeff of Iron 15.4 H Plt Count 237 MPV 9.9 Immature Gran % (Auto) 0.500 Neut % (Auto) 84.7 H Lymph % (Auto) 6.0 L [place] % (Auto) 8.0 Eos % (Auto) 0.7 Baso % (Auto) 0.1 Absolute Neuts (auto) 6.2 Absolute Lymphs (auto) 0.44 L Nucleated RBC % 0.5 Sodium 132 L Potassium 6.1 H* 6.2 H* Chloride 93 L Carbon Dioxide 11.6 L Anion Gap 28 H BUN 59 H Creatinine 3.92 H Estim Creat Clear Calc 10.57 L Est GFR (MDRD) Non-Af 12 L BUN/Creatinine Ratio 14.9 Glucose 366 H Calcium 8.3 b-Hydroxybutyric mmol/L 8.3 H POC Glucose 366 H ABG Data ABG results: ABG 06/02/25 04:55 Specimen Type ROHIT Sample Site Not entered O2 % 40.0 VBG pH 7.07 L* VBG pO2 102 H VBG HCO3 14 L VBG Total CO2 15 L VBG O2 Sat (Calc) 95 H VBG Base Excess -16 L POC Mix VBG pCO2 Pt Tmp 47.5 O2 Delivery Device BiPAP Crit Call To/Read Back Yes Blood Gas Notified Whom Thor Blood Gas Notified Time 04:56:57 Clinical Comments bipap 14. 6. 40% Radiography Diagnostic Testing: Clinical Impression(s) from Imaging Studies Chest X-Ray 06/02/25 05:25 IMPRESSION: Suspect right lung base pneumonia, no interval change. Reading Location: [place] [id number] Rhythm Strip Rhythm Strip: Sinus Rhythm Rate: 55 Ectopy: None EKG Initial EKG: Attestation: I personally reviewed and interpreted this EKG as follows: Interpretation: Sinus Bradycardia Comments: Sinus bradycardia 55 bpm Left axis deviation Minimal bulges criteria for LVH Peaked T waves which are more pronounced in the precordial leads compared to prior EKGs Management Discussion w/another healthcare provider: Hospitalist Critical Care Time Critical Care Time: Yes Critical care time (excluding procedures): 30-74 minutes (45), Discussing w/Patient &/or Family/Air Cargo Specialist, Arranging Admission or Transfer and Performing Direct Patient Care at Bedside Discharge Plan Triage Chief Complaint: Shortness of Breath ED Provider: Shivani Mcrae Dx/Rx/DC Orders Clinical Impression: DKA, type 1, DM type 1 (diabetes mellitus, type 1), End-stage renal disease on hemodialysis, Chronic hypoxemic respiratory failure, Acute hyperkalemia Prescriptions: No Action aspirin 81 mg tablet,delayed release (DR/EC) 81 mg PO DAILY oxygen See Rx Instructions NASAL .COMPLEX Rx Instructions: 3L NASALLY; 3 l Trelegy Ellipta 200-62.5-25 mcg blister with device 1 inh inhalation DAILY Qty: 3 3RF simvastatin 40 MG tablet 40 mg PO QHS albuterol sulfate 2.5 MG/3 ML solution for nebulization 2.5 mg INHALATION Q2H PRN PRN (Reason: dyspnea, wheezing) Qty: 1 0RF amlodipine [Norvasc] 10 mg tablet 10 mg PO DAILY 30 Days Qty: 30 0RF sevelamer carbonate 800 mg tablet 800 mg PO TID PRN (Reason: To lower Phosphorus) buspirone 7.5 mg tablet 7.5 mg PO DAILY Patient Comments: PT ONLY WANTS TO TAKE ONCE PER DAY potassium chloride 20 mEq tablet,ER particles/crystals 20 meq PO BID calcitriol 0.5 mcg capsule 0.5 mcg PO DAILY ondansetron 4 mg tablet,disintegrating 4 mg PO Q8H PRN PRN (Reason: Nausea) Qty: 10 0RF pseudoephedrine-guaifenesin [Mucinex D] 60-600 mg tablet extended release 12 hr 1 tab PO BID PRN (Reason: cold symptoms) ipratropium-albuterol 0.5 mg-3 mg(2.5 mg base)/3 mL solution for nebulization 3 ml inhalation Q4H PRN PRN (Reason: SOB &/OR WHEEZING) Qty: 180 6RF Prolia 60 mg/mL syringe 60 mg subcut [id number] Qty: 1 1RF Patient Comments: Next injection is 01/06/2025 clopidogrel 75 mg tablet 75 mg PO DAILY Qty: 90 3RF nitroglycerin 0.4 mg tablet, sublingual 0.4 mg SUBLINGUAL Q5-15M PRN (Reason: chest pain) Qty: 25 44RF Rx Instructions: until response; do not exceed 3 doses per episode metoprolol tartrate 50 mg tablet 50 mg PO BID Qty: 180 3RF (DME) FreeStyle Juhi 2 Plus Sensor Device See Rx Instructions .Route Qty: 6 2RF Rx Instructions: 1 sensor q 15 days (DME) Omnipod 5 (G6/Juhi 2 Plus) Cartridge See Rx Instructions .Route Qty: 30 2RF Rx Instructions: 1 pod q 3 days, must be compatible with juhi 2 plus albuterol sulfate 90 mcg/actuation HFA aerosol inhaler 2 puff INHALATION Q6H PRN PRN (Reason: Cough) Qty: 8.5 2RF insulin lispro [Humalog U-100 Insulin] 100 unit/mL solution 60 unit continuous subcutaneous infusion .continuous Qty: 54 1RF Rx Instructions: via insulin pump Advised to increase the insulin pump (DME) Dexcom G6 Sensor Device See Rx Instructions .Route Qty: 3 5RF Rx Instructions: 1 sensor q 10 days (DME) Dexcom G6 Transmitter Device See Rx Instructions .Route Qty: 1 1RF Rx Instructions: 1 transmitter q 90 days roflumilast [Daliresp] 500 mcg tablet 500 mcg PO DAILY Qty: 30 11RF Primary Care Provider: Bird Lujan Referrals: Bird Lujan MD [Primary Care Provider] - Print Language: Cuban Disposition Disposition: Acute Care Hospital [facility]
[2025-06-02 05:01] LABS: Comment bipap 14. 6. 40%; FI02 40.0; SITE Not entered; Time Given 04:56:57; VBG BASE EXCESS -16 mmol/L (-1.0-3.5); VBG PO2 102 mmHg (25-40); VBG SO2 95 % (50-70); VBG TCO2 15 mmol/L (23-33)
--- NOTE | 2025-06-02 05:14 | EKG12_ITS ---
Test Reason : SOB Blood Pressure : */* mmHG Vent. Rate : 55 BPM Atrial Rate : 55 BPM P-R Int : 172 ms QRS Dur : 102 ms QT Int : 492 ms P-R-T Axes : 72 -63 83 degrees QTcB Int : 470 ms Sinus bradycardia Left axis deviation Minimal voltage criteria for LVH, may be normal variant ( [place] product ) Poor R-wave progression ; consider anteroseptal infarct, lead placement, or normal variant Abnormal ECG Confirmed by MODESTO DAIGLE, NICOLA ([id number]), website/blog editor [place] ([id number]) on 06/06/2025 8:21:47 AM Referred By: Confirmed By: NICOLA SALVADOR MD
--- OUTSIDE RECORDS SUMMARY | 2025-06-02 05:21 | XMS RPT_ITS | CCD ---
Author Organization [facility]n Care Team Providers Care Forgesmith Name Role Phone Ruggeri DEPARTMENTAL BUYER, Ana Rosa F Unavailable Unavailabl e Ruggeri DEPARTMENTAL BUYER, Ana Rosa F Unavailable Unavailabl e Dr. Sin Lujan Primary Care Provider Dr. Sin Lujan Referring Provider ELLIE Medrano Attending Provider Dr. Rios Cordova Attending Provider [phone] ELLIE Medrano Attending Provider Dr. Rios Cordova Referring Provider None, No PCP Unavailable Unavailable Dr. Sin Lujan Primary Care Provider Dr. Sin Lujan Referring Provider Susan 2ND PRESSMAN, 2ND PRESSMAN-Marquis Meeks Attending Provider [phone] ELLIE Medrano Attending Provider [phone] Susan JUÁREZ, MARQUITA-C Jeanna Referring Provider [phone] Susan JUÁREZ, 2ND PRESSMAN-C Jeanna Other Provider Dr. Rios Cordova Attending Provider Dr. Sin Lujan Primary Care Provider Dr. Sin Lujan Referring Provider ELLIE Medrano Attending Provider [phone] Susan 2ND PRESSMAN, 2ND PRESSMAN-C Jeanna Referring Provider [phone] Susan 2ND PRESSMAN, 2ND PRESSMAN-C Jeanna Other Provider Dr. Rios Cordova Attending Provider [phone] Rios Cordova Referring Provider Dr. Sin Lujan Primary Care Provider [phone] Dr. Sin Lujan Referring Provider ELLIE Medrano Attending Provider Susan 2ND PRESSMAN, 2ND PRESSMAN-C Jeanna Attending Provider [phone] BENTON Hardy Referring Provider BENTON Hardy Other Provider Dr. Salomon Robbins Attending Provider Radha Aranda Attending Provider Unavailable Dr. Sin Lujan Primary Care Provider [phone] Dr. Sin Lujan Referring Provider Heidi Russell Attending Provider Unavailable BENTON Hardy Attending Provider Susan 2ND PRESSMAN, 2ND PRESSMAN-C Jeanna Referring Provider [phone] Susan 2ND PRESSMAN, 2ND PRESSMAN-C Jeanna Other Provider Dr. Rios Cordova Attending Provider Dr. Sin Lujan Primary Care Provider Dr. Sin Lujan Referring Provider Dr. Terrance Alva Attending Provider Susan 2ND PRESSMAN, 2ND PRESSMAN-C Jeanna Referring Provider [phone] Susan 2ND PRESSMAN, 2ND PRESSMAN-C Jeanna Other Provider Dr. Sin Lujan Primary Care Provider [phone] Dr. Terrnace Alva Attending Provider Dr. Sin Lujan Referring Provider Dr. Rios Cordova Attending Provider [phone] ELLIE Medrano Attending Provider Dr. Sin Lujan Primary Care Provider Dr. Sin Lujan Primary Care Provider [phone] Dr. Sin Lujan Referring Provider Susan 2ND PRESSMAN, 2ND PRESSMAN-C Jeanna Attending Provider Dr. Sin Lujan Primary Care Provider Dr. Sin Lujan Referring Provider Du 2ND PRESSMAN, 2ND PRESSMAN-C Kena Attending Provider Dr. Sin Lujan Primary Care Provider Dr. Sin Lujan Referring Provider Susan 2ND PRESSMAN, 2ND PRESSMAN-C Jeanna Attending Provider Du 2ND PRESSMAN, 2ND PRESSMAN-C Kena Attending Provider MARQUITA Medrano-Marquis Gutierrez Attending Provider Dr. Bird Lujan Primary Care Provider [phone] Dr. Bird Lujan Referring Provider Susan 2ND PRESSMAN, 2ND PRESSMAN-C Jeanna Attending Provider [phone] Bird Lujan Primary Care Provider Bird Lujan Primary Care Provider [phone] Lars RN, Param Unavailable Unavailable Lars RN, Param Unavailable Unavailable Lars RN, Param Unavailable Unavailable COLIN PEOPLES Referring Unavailable [facility] Primary Care Unavailable INO CONTE Admitting Unavailable JONI ARANA Consulting Unavailab FLY Adhikari Attending Unavailable ELIZABETH TYLER Referring Unavailable [facility] Primary Care Unavailable TORITO MAHAJAN Referring Unavailable [facility] Primary Care Unavailable SUNI BROWN Referring Unavailable [facility] Primary Care Unavailable TARI BRIGGS Consulting Unavailable KEMAR ADAMES Admitting Unavailable SAVITA DENISE Attending Unavailable TORITO MAHAJAN Referring Unavailable [facility]NEY[facility] Primary Care Unavailable MADELINE MONTALVO Attending Unavailable MADELINE MONTALVO Referring Unavailable [facility] Primary Care Unavailable ELIESER SOLIS Attending Unavailable ELIESER SOLIS Referring Unavailable TAI, [facility] Primary Care Unavailable Bird Lujan MD B Primary Care Provider Dr. Bird Lujan MD Primary Care Provider Tai DAIGLE, Dr. Pang Referring Provider Mitchell 2ND PRESSMAN-C, Brenda Attending Provider Susan 2ND PRESSMAN-C, Jeanna Attending Provider Susan 2ND PRESSMAN-C, Jeanna Referring Provider Bradley ANDERSON, Dr. Harrison Attending Provider Bradley ANDERSON, Dr. Harrison Referring Provider Dottie DAIGLE, Dr. Ballesteros Attending Provider Provider, Ed Physician Attending Provider Catina acuna Provider, Ed Physician Emergency Provider Catina Parisi DO, Dr. Anderson Attending Provider Isak ANDERSON, Dr. Anderson Emergency Provider [facility] 2ND PRESSMAN-C, Mynor Barbosa Attending Provider Kayleigh Farnsworth Attending Provider Kayleigh Farnsworth Referring Provider Timothy DAIGLE, Dr. Olvieira Attending Provider Dottie DAIGLE, Dr. Ballesteros Referring Provider Dottie DAIGLE, Dr. Ballesteros Other Provider Kumar DAIGLE, Dr. Vaz Emergency Provider Micaela DAIGLE, Dr. Johnson Attending Provider Micaela DAIGLE, Dr. Johnson Admit Provider Micaela DAIGLE, Dr. Johnson Other Provider Bradley ANDERSON, Dr. Harrison Other Provider [phone] Pradeep DAIGLE, Dr. Cutler Attending Provider Pradeep DAIGLE, Dr. Cutler Other Provider [phone] José Miguel DAIGLE, Dr. Hendricks Other Provider Elham DAIGLE, Dr. Peña Other Provider Art DAIGLE, Dr. Nation Other Provider Dr. Terrance Alva DO Other Provider Juan Pablo DAIGLE, Dr. Jimmy Walton Other Provider [phone] Vargas DAIGLE, Dr. Garcia Other Provider [phone] Frannie DAIGLE, Dr. Dorado Other Provider Lauren DAIGLE, Dr. Stone Other Provider [phone] Choco DAIGLE, Dr. Burdick Other Provider Jeet DAIGLE, Dr. Jameson Other Provider [phone] Guilherme DAIGLE, Dr. Motta Other Provider Prema DAIGLE, Dr. Cadet Other Provider Lorenzo DAIGLE, Dr. Kim Other Provider Unavailabl mari Franco MD, Dr. Turner Other Provider [phone] Marquez DAIGLE, Dr. Awad Other Provider Yahir DAIGLE, Dr. Langston Other Provider [phone] Peter DAIGLE, Dr. Wang Other Provider Altagracia ANDERSON, Dr. Holguin Other Provider [phone] Adrienne DAIGLE, Dr. Michael Other Provider [phone] Shamika DAIGLE, Dr. Marcano Other Provider [phone] John Dash DO Other Provider Joaquin DAIGLE, Dr. Lemus Other Provider Donny DAIGLE, Dr. Champagne Other Provider Pradeep DAIGLE, Dr. Cutler Referring Provider Dr. Terrance Alva DO Attending Provider Dottie DAIGLE, Dr. Ballesteros Attending Provider [phone] Dr. Christy Huerta DO Referring Provider Tai DAIGLE, Dr. Pang Primary Care Provider Tai DAIGLE, Dr. Pang Referring Provider Susan 2ND PRESSMAN-C, Jeanna Attending Provider Davis 2ND PRESSMAN-C, Jeanna Referring Provider Mitchell 2ND PRESSMAN-C, Brenda Attending Provider Dr. Favian Sinclair MD Attending Provider Dr. Christy Huerta DO Attending Provider Bradley ANDERSON, Dr. Harrison Referring Provider Dr. Bird Lujan MD Primary Care Provider Susan 2ND PRESSMAN-C, Jeanna Attending Provider Susan 2ND PRESSMAN-C, Jeanna Referring Provider Tai DAIGLE, Dr. Pang Referring Provider Kayleigh Farnsworth Attending Provider Mitchell 2ND PRESSMAN-C, Brenda Attending Provider Dr. Christy Huerta DO Attending Provider Bradley ANDERSON, Dr. Harrison Referring Provider Kumar DAIGLE, Dr. Vaz Attending Provider Dr. Milind Heath MD Emergency Provider Isak ANDERSON, Dr. Anderson Emergency Provider Dr. Bird Lujan MD Primary Care Provider Dr. Bird Lujan MD Referring Provider Kayleigh Farnsworth Attending Provider Isak ANDERSON, Dr. Anderson Attending Provider Reshma 2ND PRESSMAN-C, Irais Palacios Attending Provider Dr. Alonzo Edwards DO Emergency Provider Dr. Bird Lujan MD Primary Care Provider Dr. Bird Lujan MD Referring Provider [phone] Kayleigh Farnsworth Attending Provider Kumar DAIGLE, Dr. Vaz Attending Provider Kumar DAIGLE, Dr. Vaz Emergency Provider KateEugenio ANDERSON, Dr. Anderson Attending Provider KateEugenio ANDERSON, Dr. Anderson Emergency Provider Irais Catherine Attending Provider Jerry ANDERSON, Dr. Rosado Attending Provider Jerry ANDERSON, Dr. Rosado Emergency Provider Marie DAIGLE, Dr. Hagan Emergency Provider Cristopher ANDERSON, Dr. Ballesteros Admit Provider Cristopher ANDERSON, Dr. Ballesteros Attending Provider Cristopher ANDERSON, Dr. Ballesteros Other Provider [phone] Bird Lujan Primary Care Unavailable Kayleigh Payne Attending Unavailable Bird Lujan Referring Unavailable Irais Justice Attending Unavailable Bird Lujan Referring Unavailable Bird Lujan Primary Care Unavailable Brenda Medrano Attending Unavailable Tai, Bird Primary Care Unavailable Bird Lujan Referring Unavailable Alex Hinojosa Admitting Unavailable He Cat Attending Unavailable Christy Huerta Consulting Unavailable Bird Lujan Primary Care Unavailable Alex Hinojosa Consulting Unavailable Eladio Valdez Consulting Unavailable Casey Lizarraga Consulting Unavailable Rios Cordova Consulting Unavailable Terrance Alva Consulting Unavailable Jimmy Almeida Consulting Unavailable Jose Kaye Consulting Unavailable Estrada Kathleen Consulting Unavailable Bertha Aguilar Consulting Unavailab zan Wilhelm Gennaro Consulting Unavailable Trino Marcano Consulting Unavailable Kalia Vanegas Consulting Unavailable Chichi Lloyd Consulting Unavailable Julio Ventura Consulting Unavailable Yue Franco Consulting Unavailable Ritesh Zayas Consulting Unavailable Kian Sinclair Consulting Unavailable Felipe Green Consulting Unavailable Dhesi, Ezio Consulting Unavailable Fernanda Deleon Consulting Unavailable Krys Wick Consulting Unavailable John Dash Consulting Unavailable Allan Nuñez Consulting Unavailable Ihsan Hines Consulting Unavailable Pradeep, He Consulting Unavailable Bradley, Christy Consulting Unavailable Jopperi, Favian Admitting Unavailable Saurabh Sinclairic Attending Unavailable [facility] Unavailable Jopperi, Favian Consulting Unavailable Robotham, Brielle Consulting Unavailable Dottie, Favian Consulting Unavailable Khai Bullard Consulting Unavailable Stacy Huerta Consulting Unavailable [facility] Attending Unavailable [facility] Unavailable Kayleigh Payne Attending Unavailable PayneRobe vargasison Referring Unavailable Justin Parisi Attending Unavailabl e [facility] Primary Care Unavailable Alonzo Edwards Attending Unavailable [facility] Primary Care Unavailable [facility] Primary Care Unavailable [facility] Referring Unavailable Favian Sinclair Attending Unavailable [facility] Primary Care Unavailable Favian Sinclair Attending Unavailable [facility] Primary Care Unavailable Brenda Medrano Attending Unavailable Alex Hinojosa Attending Unavailable [facility] Primary Care Unavailable Stacy Huerta Attending Unavailable [facility] Referring Unavailable Viraj No Attending Unavailable [facility] Primary Care Unavailable [facility] Primary Care Unavailable Brenda Medrano Attending Unavailable [facility] Referring Unavailable Bradley, Christy Referring Unavailable [facility] Primary Care Unavailable Favian Sinclair Attending Unavailable [facility] Referring Unavailable Gabrielle 2ND PRESSMAN, Mynor Barbosa Attending Unavailable [facility] Primary Care Unavailable [facility] Referring Unavailable Susan 2ND PRESSMAN, Jeanna Attending Unavailable [facility] Primary Care Unavailable Ana Rosa Munoz Attending Unavailable Lani Samaniego Consulting Unavailable Baldo Tripp Attending Unavailable Lani Samaniego L Admitting Unavailable [facility] Unavailable Donnell, Jayaprakas Consulting Unavailable Baldo Tripp Consulting Unavailable Favian Nicholas Attending Unavailable Terrance Alva Attending Unavailable Pradeep, He Referring Unavailable Lani Samaniego L Attending Unavailable Terrance Alva Attending Unavailable Cristopher, Favian Referring Unavailable Leon Cao Consulting Unavailable Adeli, Amir Consulting Unavailable Hinduja, Janet Consulting Unavailable Jamey, Kayleigh Consulting Unavailable Zha, Liliana Consulting Unavailable Calvin, Eduardo Consulting Unavailable Brian, Stephanie Consulting Unavailable James Mendiola Consulting Unavailable Kalia [...] Nicholas Consulting Unavailable Favian Nicholas Attending Unavailable Christy Huerta Consulting Unavailable Khai Bullard Attending Unavailable Justin Parisi Attending Unavailquinn [facility] Primary Care Unavailable Milind Heath Attending Unavailable [facility] Primary Care Unavailable Christy Huerta Referring Unavailable Christy Huerta Attending Unavailable [facility] Primary Care Unavailable Irais Justice Attending Unavailable [facility] Primary Care Unavailable Irais Justice Referring Unavailable Christy Huerta Attending Unavailable [facility] Primary Care Unavailable Provider, Ed Physician Attending Unavailab zan [facility] Primary Care Unavailable [facility] Primary Care Unavailable Favian Sinclair Referring Unavailable Favian Sinclair Attending Unavailable Alex Hinojosa Admitting Unavailable He Cat Attending Unavailable [facility] Primary Care Unavailable Christy Huerta Consulting Unavailable Alex Hinojosa Consulting Unavailable Lani Samaniego Consulting Unavailable Favian Nicholas Attending Unavailable Lani Samaniego Admitting Unavailable [facility] Primary Care Unavailable Marshal Jacobo Consulting Unavailable Leon Cao Consulting Unavailable AdeMario roberson Consulting Unavailable Hinducosme Janet Consulting Unavailable Jamey Kayleigh Consulting Unavailable Shwetha Liliana Consulting Unavailable Eduardo Simpson Consulting Unavailable Stephanie [...] Hines Consulting Unavailable Christy Huerta Consulting Unavailable Bradley Christy Referring Unavailable Reynaldo Huertaine Attending Unavailable [facility] Primary Care Unavailable Bradley, Christy Referring Unavailable Reynaldo Huertaine Attending Unavailable [facility] [place] Primary Care Unavailable Davis 2ND PRESSMAN, Jeanna Referring Unavailable Davis 2ND PRESSMAN, Jeanna Attending [facility]available [facility] Unavailable [facility] Primary Care Unavailable Davis 2ND PRESSMAN, Jeanna Attending Unavailable Davis 2ND PRESSMAN, Jeanna Referring Unavailable [facility] Primary Care Unavailable Dottie Favian Consulting Unavailable Dallas, Favian Referring Unavailable Dottie, Favian Attending Unavailable [facility] Primary Care Unavailable Dottie, Favian Attending Unavailable Lani Samaniego Referring Unavailable Saroj Lemos Attending Unavailable [facility] [place] Primary Care Unavailable Tee Aguirre Attending Unavailquinn guerra [facility], [place] Primary Care Unavailable Ranramey, Christopher Referring Unavailable Kayleigh Payne Attending Unavailable [facility] Primary Care Unavailable Dr. Favian Nicholas DO Other Provider [phone] Christy Huerta DO Other Provider Johnny DAIGLE, Dr. Hannah Other Provider Dr. Favian Sinclair MD Other Provider Dr. Stacy Huerta DO Attending Provider Dr. Khai Bullard DO Other Provider Dr. Favian Nicholas DO Attending Provider Dr. Brielle Turner MD Attending Provider Dr. Khai Bullard DO Attending Provider Dr. Stacy Huerta DO Other Provider Ana Rosa Romano PA-C Attending Provider Dottie DAIGLE, Dr. Ballesteros Attending Provider [phone] Allergies Allergy Classification Reported Allergen(s) Allergy Type Date of Onset Reaction(s) Facility (3 sources) environmental [Other] Propensity to adverse reactions 9 [facility] Medications Current Medications Medication Drug [...] G6 Sensor) device Discontinued 0 .Route 3 5 March 02, 2025 12:00am April 07, 2025 [...] / glycopyrrolate 0.009 mg/actuat metered dose inhaler (20 sources) Corticosteroid, beta2-Adrenergic Agonist Start: [facility]-20-2024 [facility]4.8 MCG/ACT aerosol 07/20/2024 Active Start: 07-20-2024 End: 10-07-2024 Atmywrnjer-Ehvyolyb-Knpteceh ol (Breztri Aerosphere) 160-9-4.8 mcg/actuation HFA aerosol inhaler Discontinued 2 NMA INHALATION TWICE A DAY 10.7 6 July 20, 2024 12:00am October 07, 2024 2:46pm Start: 07-20-2024 End: 10-07-2024 busPIRone hydrochloride 7.5 mg oral tablet (20 sources) Start: 08-12-2024 End: 08-24-2024 Start: 08-02-2024 End: 08-10-2024 Start: 04-15-2024 End: 12-14-2024 Start: 04-15-2024 End: 12-14-2024 take 1 tablet by mouth twice daily Buspirone 7.5 mg tablet Discontinued 7.5 mg PO TWICE A DAY 60 30 0 April 15, 2024 12:00am December 14, 2024 2:12pm calcitriol 0.0005 mg oral capsule (1 source) Vitamin D3 Analog Start: 05-31-2025 Calcium Carbonate / vitamin D3 (3 sources) CALCIUM CARBONATE/VITAMIN D3 (CALCIUM + D ORAL) Take by mouth three times daily. Active cefdinir 300 mg oral capsule (20 sources) Cephalosporin Antibacterial Start: 01-06-2025 Start: 06-23-2018 End: 07-30-2018 Start: 06-23-2018 End: 07-30-2018 take 1 capsule [...] D3 1 000 UNIT CHEW Weekly CHOLECALCIFEROL [id number] Alyssia Ibanez RN RN Continuous Glucose Sensor (Dexcom G6 Sensor) [facility] (6 sources) Start: 07-22-2024 Continuous Glucose Sensor (Dexcom G6 Sensor) [facility] 07/[facility] Active Continuous Glucose Transmitter (Dexcom G6 transmitter) [facility] (6 sources) Start: 07-25-2024 Continuous Glucose Transmitter (Dexcom G6 transmitter) [facility] 07/25/2024 Active 1 ml denosumab 60 mg/ml prefilled syringe (20 sources) RANK Ligand Inhibitor Start: 05-26-2024 End: 06-10-2024 dicyclomine hydrochloride 10 mg oral capsule (3 [...] mouth once daily. Active Flash Glucose Scanning [place] (Freestyle Eileen 2 [place]) [facility] (20 sources) Start: 11-20-2020 Flash Glucose Scanning [place] (Freestyle Eileen 2 [place]) [facility] Active 0 .ROUTE .MEDSUPPLY November 20, 2020 10:12am As directed Start: 11-20-2020 End: 01-27-2025 Flash Glucose Scanning Reade r (Freestyle Eileen 2 [place]) [facility] Discontinued 0 .ROUTE .MEDSUPPLY 1 November 20, 2020 1:00am January 27, 2025 8:47am As directed Start: 11-20-2020 Flash Glucose Scanning [place] (Freestyle Eileen 2 [place]) [facility] Active 0 .ROUTE .MEDSUPPLY November 20, 2020 12:00am As directed Start: 11-20-2020 Flash Glucose Scanning [place] (Freestyle Eileen 2 [place]) [facility] Active 0 .ROUTE [...] Active Fluticasone-Umeclid in-Vilanter (20 sources) Start: 05-18-2025 Start: 05-18-2025 Fluticasone-Um eclidin-Vilanter (Trelegy Ellipta) 200-62.5-25 mcg blister with device Active 1 NMA INHALATION DAILY 3 3 May 18, 2025 9:21am Chronic respiratory failure with hypoxia Chronic respiratory failure with hypoxia breathing Start: 05-18-2025 End: 05-18-2025 Start: 05-18-2025 End: 05-18-2025 Ipwzeskarxj-Tatpfvfyk-Ygxeyn er (Trelegy Ellipta) 200-62.5-25 mcg blister with device Discontinued 1 NMA INHALATION DAILY 3 May 18, 2025 8:59am May 18, 2025 9:22am breathing Start: 12-30-2024 End: 05-18-2025 Start: 12-30-2024 End: 05-18-2025 Ywnlpkjnpgk-Qikcfukcv-Bqbqxb er (Trelegy Ellipta) 200-62.5-25 mcg blister with device Discontinued 1 NMA INHALATION DAILY 3 December 30, 2024 12:58pm May 18, 2025 8:59am breathing Start: 12-30-2024 Fluticasone-Um eclidin-Vilanter (Trelegy Ellipta) 200-62.5-25 mcg blister with device Active 1 NMA INHALATION DAILY 3 December 30, 2024 12:58pm breathing Start: 12-30-2024 Start: 10-13-2024 End: 12-30-2024 Qjczrfmsikr-Ecdwvnrde-Yhksdb er (Trelegy Ellipta) 200-62.5-25 mcg blister with device Discontinued 1 NMA INHALATION DAILY 3 October 13, 2024 1:00am December 30, 2024 12:58pm Start: 10-13-2024 End: 12-30-2024 Start: 10-29-2023 End: 07-20-2024 Nmybekpqgnv-Slakcguhp-Runvfc er (Trelegy Ellipta) 200-62.5-25 mcg blister with [...] 29, 2023 3:13pm Start: 10-01-2023 End: 10-29-2023 Haypbtlnrlk-Nnwcddwyc-Gecvhi er (Trelegy Ellipta) 200-62.5-25 mcg blister with device Discontinued 1 NMA INHALATION DAILY 3 October 01, 2023 3:45pm October 29, 2023 4:14pm Start: 10-01-2023 End: 10-29-2023 Start: 10-01-2023 End: 10-29-2023 Ivjrbfnqwps-Zczastsyp-Bwiern er (Trelegy Ellipta) 200-62.5-25 mcg blister with device Discontinued 1 INH INHALATION DAILY October 01, 2023 3:45pm October 29, 2023 4:14pm Start: 10-01-2023 End: 10-29-2023 Iygmszhxsco-Iiocodiog-Hlyecj er (Trelegy Ellipta) 200-62.5-25 mcg blister with device Discontinued 1 INH INHALATION DAILY October 01, 2023 2:45pm October 29, 2023 3:14pm Start: 10-01-2023 Fluticasone-Um eclidin-Vilanter (Trelegy Ellipta) 200-62.5-25 mcg blister with device Active 1 INH INHALATION DAILY October 01, 2023 2:45pm Start: 06-25-2023 End: 10-01-2023 Hmohblocmdd-Zdzdacbsb-Skoytf er (Trelegy Ellipta) 200-62.5-25 mcg blister with device Discontinued 1 NMA INHALATION DAILY 60 June 25, 2023 12:00am October 01, 2023 3:46pm Start: 06-25-2023 End: 10-01-2023 Start: 06-25-2023 End: 10-01-2023 Eieablxnfre-Dwjgpisfq-Kjjihi er (Trelegy Ellipta) 200-62.5-25 mcg blister with device Discontinued 1 INH INHALATION DAILY 60 June 25, 2023 12:00am October 01, 2023 3:46pm Start: 06-25-2023 End: 10-01-2023 Ajnjyijkfbd-Mzxibekbl-Tgdwrz er (Trelegy Ellipta) 200-62.5-25 mcg blister with device Discontinued 1 INH INHALATION DAILY 60 June 24, 2023 11:00pm October 01, 2023 2:46pm 12 hr guaiFENesin 600 mg / pseudoephedrine hydrochloride 60 mg extended release oral tablet (10 sources) alpha-Adrenergic Agonist Start: 01-06-2025 Start: 01-06-2025 take 1 tablet by vasile every twelve hours Pseudoephedrine-Guaifenesin (Mucinex D) 60-600 mg tablet extended release 12 hr Active 1 {tbl} PO TWICE A DAY 14 0 January 06, 2025 1:00am cold symptoms Insulin Disposable Pump (Omnipod 5 [id number] Intro Gen 5) kit (3 sources) Start: 12-03-2023 Insulin Disposable Pump (Omnipod 5 [id number] Intro Gen 5) kit 12/03/2023 Active Insulin Disposable Pump (Omnipod 5 [id number] Pods Gen 5) misc (3 sources) Start: 07-15-2024 Insulin Disposable Pump (Omnipod 5 [id number] Pods Gen 5) misc 07/15/2024 Active insulin [...] 01, 2023 2:43pm Start: 08-29-2020 End: 04-14-2024 Start: 08-29-2020 End: 02-08-2021 Insulin Glargine Discontinue d 10 UNITS SC DAILY 1 August 29, 2020 12:00am February 08, 2021 [...] 21 units sq q hs INSULIN GLARGINE [id number] Alyssia Ibanez RN RN Start: 01-21-2015 End: [...] 20 units sq q hs INSULIN GLARGINE [id number] Qi Dunham LPN Insulin Pump Cart,Auto,Bt,G6 /L (Omnipod 5 (G6/Eileen 2 Plus)) cartridge (6 sources) Start: 02-09-2025 Insulin Pump C art,Auto,Bt,G6/L (Omnipod 5 (G6/Eileen 2 Plus)) cartridge Active 0 .Route 30 February 09, 2025 8:21am Type 1 diabetes [...] 11-19-2019 End: 11-11-2024 Start: 03-15-2019 End: 09-20-2019 Metoprolol Tartrate 25 [...] Start: 01-26-2019 End: 10-21-2024 Start: 01-26-2019 End: 10-21-2024 Nitroglycerin 0.4 mg tablet, sublingual Discontinued 0.4 mg SL every 5 to 15 minutes as needed for chest pain 25 01October 19, 2023 10:07am October 21, 2024 8:42am until response; do not exceed 3 doses per episode Start: 01-26-2019 End: 10-19-2023 Nitroglycerin Discontinued 0 [...] doses per event Start: 02-20-2018 End: 06-02-2018 Nitroglycerin (Nitrostat) 0. 4 mg tablet, sublingual Discontinued 0.4 MG SL every 5 to 15 minutes February 20, 2018 12:00am June 02, 2018 2:36pm until response; do not exceed 3 doses per event ondansetron 4 mg disintegrat ing oral tablet (20 sources) Serotonin-3 Receptor Antagonist Start: 05-08-2025 Start: 08-20-2016 End: 01-29-2018 ZOFRAN 8 MG TABS PRN ONDANSETRON HCL [id number] Alyssia Ibanez RN RN Oxygen (6 sources) [...] AND AT BEDTIME August 29, 2020 12:00am microencapsulated potassium chloride 20 meq extended release oral tablet (5 sources) Start: 05-31-2025 Start: 08-22-2024 End: 08-22-2024 Start: 08-06-2024 End: 08-06-2024 Start: 08-06-2024 End: 08-06-2024 promethazine hydrochloride 25 mg oral tablet (3 [...] mcg tablet Discontinued 500 ug PO DAILY 30 2024 1:00am December 03, 2024 11:22am Start: 08-24-2024 End: 08-24-2024 take 1 tablet by mouth once daily Roflumilast (Daliresp) 500 MCG tablet Take one tablet by mouth every day 30 tablet 08/25/2024 Active sevelamer carbonate 800 mg o ral tablet (10 sources) Phosphate Binder Start: 12-14-2024 simvastatin 40 mg oral table t (20 sources) HMG-CoA Reductase Inhibitor Start: 06-21-2018 Start: 02-12-2012 take 1 tablet by vasile th once daily at bedtime simvastatin (ZOCOR) 20 mg ORAL tablet Take 1 tablet by mouth daily at bedtime. 0 02/12/2012 Active take 1 tablet by vasile th once daily ZOCOR 40 MG TABS One tablet by mouth daily SIMVASTATIN [id number] Alyssia Ibanez RN RN Trelegy Ellipta 200-62.5-25 MCG/ACT aerosol powder (6 sources) Start: 05-12-2024 Trelegy Ellipt a 200-62.5-25 MCG/ACT aerosol powder 05/12/2024 Active (4 sources) Start: 07-22-2024 (4 sources) Start: 07-25-2024 (4 sources) Start: 05-12-2024 (20 sources) Start: 05-11-2025 Start: 04-07-2025 Start: 04-07-2025 Start: 03-02-2025 End: 04-07-2025 Start: 03-02-2025 Start: 02-09-2025 Start: 02-09-2025 Start: 01-27-2025 End: 02-09-2025 Start: 01-13-2025 End: 02-23-2025 Start: 01-13-2025 Start: 01-10-2025 End: 01-27-2025 Start: 01-10-2025 Start: 12-03-2024 End: 05-11-2025 Start: 12-03-2024 Start: 2024 End: 12-03-2024 Start: [...] pain and fever 20 ml albumin human, shelter 250 mg/ml injection (12 sources) Human Serum Albumin Start: 08-16-2024 End: 08-17-2024 Start: 08-16-2024 End: 08-16-2024 Start: 08-13-2024 End: 08-13-2024 Start: 08-05-2024 End: 08-05-2024 [id number] 200 actuat albuter ol 0.09 mg/actuat metered dose inhaler (20 sources) beta2-Adrenergic Agonist Start: 06-23-2018 Start: 06-23-2018 take 2.5 mg by inhal ation every two hours as needed for dyspnea Albuterol Sulfate 2.5 MG/3 ML solution for nebulization Active 2.5 mg INHALATION EVERY 2 HOURS NEEDED as needed for dyspnea, wheezing 1 0 June 23, 2018 12:00am Start: 06-21-2018 End: 03-14-2025 Start: 06-21-2018 End: 03-14-2025 Albuterol Sulfate 90 mcg/act uation HFA aerosol inhaler Discontinued 2 NMA INHALATION EVERY 6 HOURS NEEDED as needed for Cough 8.5 2 December 30, 2024 12:58pm March 14, 2025 9:58am Smoking greater than 30 pack years Nicotine dependence, cigarettes, uncomplicated Start: 06-21-2018 End: 01-26-2024 take 1 puff(s) [...] EVERY 2 HOURS NEEDED March 11, 2015 11:38am January 26, 2018 12:49pm Start: 03-11-2015 End: 01-26-2018 take 6.7 g by inhalation every two hours as needed Albuterol Sulfate Discontinued 6.7 GM IH EVERY 2 HOURS NEEDED March 11, 2015 12:38pm January 26, 2018 1:49pm take 2 puff(s) by mo ut every six hours for cough albuterol 108 (90 Base) MCG/ACT inhaler inhale 2 puffs by mouth and INTO THE LUNGS every 6 hours if needed for cough Active PROAIR HFA 108 ( 90 Base) MCG/ACT AERS PRN ALBUTEROL SULFATE [id number] Alyssia Ibanez RN RN albuterol 0.833 mg/ml / ipratropium bromide 0.167 mg/ml inhalation solution (20 sources) Anticholinergic, beta2-Adrenergic Agonist Start: 08-20-2024 End: 08-24-2024 Start: 08-12-2024 End: 08-19-2024 Start: 08-07-2024 End: 08-10-2024 Start: 07-26-2024 End: 08-02-2024 Start: 10-29-2023 End: 12-29-2023 Start: 10-29-2023 End: 12-29-2023 take 1 mL by inhalation every four hours as needed for wheezing Ipratropium-Albuterol 0.5 mg-3 mg(2.5 mg base)/3 mL solution for nebulization Active 3 mL INHALATION EVERY 4 HOURS NEEDED as needed for SOB &/OR WHEEZING 180 6 December 29, 2023 3:48pm Chronic obstructive pulmonary disease Chronic obstructive pulmonary disease, unspecified Start: 10-29-2023 End: 12-29-2023 ipratropium-albuterol (Duo-N eb) 0.5-2.5 mg/3 mL nebulizer solution inhale contents of 1 vial ( 3 MLS ) in nebulizer by mouth and INTO THE LUNGS every 4 hours 10/29/2023 Active AMOXICILLIN-POT CLAVULANATE (8 sources) Penicillin-class Antibacterial Start: 12-30-2012 End: 01-21-2013 AUGMENTIN 875-125 MG TABS bid AMOXICILLIN-POT CLAVULANATE [id number] Edie Kearney MD Start: 12-30-2012 AUGMENTIN 875- 125 MG TABS bid AMOXICILLIN-POT CLAVULANATE [id number] Edie Kearney MD take 10 mL by mouth every eight hours AUGMENTIN 250-62.5 MG/5ML SUSR 10 ml po q 8 hrs AMOXICILLIN-POT CLAVULANATE [id number] Qi Dunham LPN End: 12-30-2012 take 10 mL by mouth every eight hours AUGMENTIN 250-62.5 MG/5ML SUSR 10 ml po q 8 hrs AMOXICILLIN-POT CLAVULANATE [id number] Edie Kearney MD ASPIRIN TBEC (2 sources) take 1 tablet by mouth once daily ASPIR-81 TBEC One tablet by mouth daily ASPIRIN TBEC [id number] Qi Dunham LPN atorvastatin 20 mg oral tablet (2 sources) HMG-CoA Reductase Inhibitor Start: 08-12-20 24 End: 08-24-20 24 azithromycin 500 mg oral tablet (20 sources) Macrolide Antimicrobial Start: 06-23-20 18 End: 06-30-20 18 B-Complex With Vitamin C (Super B/C) capsule (19 sources) Start: 07-04-20 22 End: 10-29-20 23 B-Complex With Vitamin C (Super B/C) capsule [...] calcium carbonate 1500 mg or al tablet (20 sources) Start: 04-09-2023 End: 10-29-2023 calcium chloride [...] SUSR 500mg po q 12 hrs CIPROFLOXACIN [id number] Qi John Roly DEPARTMENTAL BUYER clopidogrel 75 mg oral tablet (20 sources) [...] by mouth twice daily prn DOCUSATE SODIUM [id number] Alyssia Ibanez RN RN docusate sodium 50 mg / sennosides, shelter 8.6 mg oral tablet (2 sources) Start: 08-17-2024 End: 08-24-2024 doxycycline hyclate 100 mg oral tablet (20 sources) Tetracycline- class Drug Start: 06-27-2021 End: 02-21-2022 Start: 01-21-2013 End: 01-31-2013 take 1 tablet by mouth every twelve hours DOXYCYCLINE HYCLATE 100 MG TABS 100 mg po every 12 hrs x 10 d DOXYCYCLINE HYCLATE [id number] Edie Kearney MD ergocalciferol 1.25 mg oral capsule (20 sources) Provitamin D2 Compound Start: 06-21-2018 End: 07-14-2023 escitalopram 20 mg oral tabl et (20 sources) Serotonin Reuptake Inhibitor Start: 06-21-2018 End: 11-19-2019 take 1 tablet by mouth once alejandra y ESCITALOPRAM OXALATE 10 MG TABS One tablet by mouth daily ESCITALOPRAM OXALATE [id number] Alyssia Ibanez RN RN ferrous sulfate 325 [...] 1:00am July 19, 2021 1:00pm As directed Iceavkrkpnq-Pbvpykgjn-Wtpxjm er (20 sources) Anticholinergic, Corticosteroid, beta2-Adrenergic Agonist Start: 02-17-2023 End: 06-25-2023 Cnsduibejsx-Cfbrvzhue-Lmjdye er (Trelegy Ellipta) 100-62.5-25 mcg blister with device Discontinued 1 NMA INHALATION daily 60 February 17, 2023 9:13am June 25, 2023 8:59am Chronic obstructive pulmonary disease, unspecified administer at approximately the same time(s) each day Start: 02-17-2023 End: 06-25-2023 Start: 02-17-2023 End: 06-25-2023 Oienxtppgsf-Esbuurdnt-Nklrcc er (Trelegy Ellipta) 100-62.5-25 mcg blister with device Discontinued 1 INH INHALATION daily 60 February 17, 2023 9:13am June 25, 2023 8:59am administer at approximately the same time(s) each day Start: 02-17-2023 End: 06-25-2023 Atiluvyzjql-Mkfrauxcr-Diagec er (Trelegy Ellipta) 100-62.5-25 mcg blister with device Discontinued 1 INH INHALATION daily 60 February 17, 2023 8:13am June 25, 2023 7:59am administer at approximately the same time(s) each day Start: 02-17-2023 Fluticasone-Um eclidin-Vilanter (Trelegy Ellipta) 100-62.5-25 mcg blister with device Active 1 INH INHALATION daily 60 February 17, 2023 9:13am administer at approximately the same time(s) each day Start: 02-21-2022 End: 02-17-2023 Vuqqjvblrbe-Ynrywgytg-Mdtnqd er (Trelegy Ellipta) 100-62.5-25 mcg blister with device Discontinued 1 NMA INHALATION daily 60 February 21, 2022 1:21pm February 17, 2023 9:13am Chronic obstructive pulmonary disease, unspecified administer at approximately the same time(s) each day Start: 02-21-2022 End: 02-17-2023 Start: 02-21-2022 End: 02-17-2023 Sgtepdqacqh-Vhdpmklkl-Zwvewy er (Trelegy Ellipta) 100-62.5-25 mcg blister with device Discontinued 1 INH INHALATION daily 60 February 21, 2022 12:21pm February 17, 2023 8:13am administer at approximately the same time(s) each day Start: 02-21-2022 End: 02-17-2023 Mcabxipypda-Txosvoffz-Qiddmn er (Trelegy Ellipta) 100-62.5-25 mcg blister with [...] time(s) each day Start: 01-16-2022 End: 02-21-2022 Rforexeowcv-Mjzibiwxe-Bjneow er (Trelegy Ellipta) 100-62.5-25 mcg blister with device Discontinued 1 NMA INHALATION daily 60 0 January 16, 2022 11:47am February 21, 2022 1:22pm Chronic obstructive pulmonary disease, unspecified administer at approximately the same time(s) each day Start: 01-16-2022 End: 02-21-2022 Start: 01-16-2022 End: 02-21-2022 Lenlnqrvril-Isbwksgpj-Vlnmep er (Trelegy Ellipta) 100-62.5-25 mcg blister with device Discontinued 1 INH INHALATION daily 60 January 16, 2022 10:47am February 21, 2022 12:22pm administer at approximately the same time(s) each day Start: 01-16-2022 End: 02-21-2022 Qrmtadrqmhm-Swwbusgas-Fakity er (Trelegy Ellipta) 100-62.5-25 mcg blister with device Discontinued 1 INH INHALATION daily 60 January 16, 2022 11:47am February 21, 2022 1:22pm administer at approximately the same time(s) each day Start: 01-16-2022 Fluticasone-Um eclidin-Vilanter (Trelegy Ellipta) 100-62.5-25 mcg blister with device Active 1 INH INHALATION daily 60 January 16, 2022 11:47am administer at approximately the same time(s) each day Start: 09-10-2021 End: 01-16-2022 Qhkiiuezaxk-Aemnzbmvo-Uuvewp er (Trelegy Ellipta) 100-62.5-25 mcg blister with device Discontinued 1 NMA INHALATION daily 60 3 September 10, 2021 2:48pm January 16, 2022 11:48am Chronic obstructive pulmonary disease, unspecified administer at approximately the same time(s) each day Start: 09-10-2021 End: 01-16-2022 Start: 09-10-2021 End: 01-16-2022 Tmfieehzhnv-Deffmkoag-Jwilix er (Trelegy Ellipta) 100-62.5-25 mcg blister with device Discontinued 1 INH INHALATION daily 60 September 10, 2021 1:48pm January 16, 2022 10:48am administer at approximately the same time(s) each day Start: 09-10-2021 End: 01-16-2022 Getsysvjwiu-Tanipbmda-Kbwlgu er (Trelegy Ellipta) 100-62.5-25 mcg blister with device Discontinued 1 INH INHALATION daily 60 September 10, 2021 2:48pm January 16, 2022 11:48am administer at approximately the same time(s) each day Start: 04-03-2021 End: 09-10-2021 Empctogmwvf-Ujuuhyybr-Ohoqyl er (Trelegy Ellipta) 100-62.5-25 mcg blister with device Discontinued 1 NMA INHALATION daily 60 April 03, 2021 10:55am September 10, 2021 2:49pm Chronic obstructive pulmonary disease, unspecified administer at approximately the same time(s) each day Start: 04-03-2021 End: 09-10-2021 Start: 04-03-2021 End: 09-10-2021 Evlgxxvyqpu-Wmpijqvdw-Gatfpm er (Trelegy Ellipta) 100-62.5-25 mcg blister with device Discontinued 1 INH INHALATION daily 60 April 03, 2021 9:55am September 10, 2021 1:49pm administer at approximately the same time(s) each day Start: 04-03-2021 End: 09-10-2021 Kxacwnkqsqz-Lnxgjbkuf-Hssnrm er (Trelegy Ellipta) 100-62.5-25 mcg blister with device Discontinued 1 INH INHALATION daily 60 April 03, 2021 10:55am September 10, 2021 2:49pm administer at approximately the same time(s) each day Start: 09-12-2020 End: 04-03-2021 Fjjkbybujpx-Nimiamlgx-Keonty er (Trelegy Ellipta) 100-62.5-25 mcg blister with device Discontinued 1 INH INHALATION daily 60 September 12, 2020 9:59am April 03, 2021 10:55am administer at approximately the same time(s) each day Start: 09-12-2020 End: 04-03-2021 Fflbrhdpdsi-Bediflrjl-Njhspt er (Trelegy Ellipta) 100-62.5-25 mcg blister with device Discontinued 1 NMA INHALATION daily 60 September 12, 2020 1:00am April 03, 2021 10:55am Chronic obstructive pulmonary disease, unspecified administer at approximately the same time(s) each day Start: 09-12-2020 End: 04-03-2021 Start: 09-12-2020 End: 04-03-2021 Vlfzxdgfpdy-Rtvkguqwu-Lsstua er (Trelegy Ellipta) 100-62.5-25 mcg blister with device Discontinued 1 INH INHALATION daily September 12, 2020 12:00am April 03, 2021 9:55am administer at approximately the same time(s) each day Start: 09-12-2020 End: 04-03-2021 Tguqdkmchzi-Ynhcmsnqi-Chzzws er (Trelegy Ellipta) 100-62.5-25 mcg blister with device Discontinued 1 INH INHALATION daily September 12, 2020 1:00am April 03, 2021 [...] 08/10/2024 08/10/2025 Active Start: 02-17-2023 End: 05-18-2025 Start: 02-17-2023 End: 10-07-2024 take 1 tablet by mouth at bedtime Gabapentin 800 mg tablet Discontinued 800 mg PO AT BEDTIME February 17, 2023 12:00am October 07, 2024 2:48pm neuropathy Start: 01-10-2022 End: 04-14-2024 Start: 06-21-2018 End: 07-04-2022 Start: 01-21-2015 End: 01-16-2018 glucagon (rdna) 1 mg injecti on (20 sources) Start: 08-12-2024 End: 08-24-2024 Start: 07-26-2024 End: 08-10-2024 Start: 06-21-2018 End: 11-19-2019 GLUCAGON EMERGEN CY 1 MG KIT in case of hypoglycemia emergency GLUCAGON (RDNA) [id number] Alyssia Ibanez RN RN 150 ml glucose [...] 12hr Discontinued 1200 mg PO Q12H 60 6 December 29, 2023 1:00am July 23, 2024 11:38pm On Hold: pt can't swallow pill Start: 02-17-2023 End: 11-18-2023 Start: 06-23-2018 End: 12-31-2018 Start: 06-23-2018 End: 12-31-2018 take 1 tablet by mouth twice daily Guaifenesin 1,200 MG tablet Discontinued 1200 mg PO TWICE A DAY 20 0 June 23, 2018 12:00am December 31, [...] 08-10-2024 hydrALAZINE hydrochloride 25 mg oral tablet (20 sources) Arteriolar Vasodilator Start: 12-16-2024 End: 05-18-2025 Start: 07-26-2024 End: 08-04-2024 HYDROmorphone hydrochloride 4 mg oral tablet (4 sources) Opioid Agonist End: 12-16-2012 take 1 tablet by mouth every four hours as needed DILAUDID 4 MG TABS po q 4 hrs prn HYDROMORPHONE HCL [id number] Qi Dunham DEPARTMENTAL BUYER ibuprofen 200 mg oral tablet (8 sources) Nonsteroidal Anti-inflammatory Drug End: 12-16-2012 take 1 tablet by mouth every six hours as needed MOTRIN IB TABS 800 mg by mouth q 6 hrs prn IBUPROFEN TABS [id number] Qi Dunham DEPARTMENTAL BUYER End: 12-30-2012 ADVIL 200 MG CAPS q 4 hrs as needed IBUPROFEN [id number] Edie Kearney MD Insulin Basal Pump (Pt's [...] 26, 2018 1:51pm Start: 01-11-2018 End: 01-26-2018 Insulin Detemir U-100 Discon tinued 12 UNITS SC AT BEDTIME January 11, 2018 1:00am January 26, 2018 1:51pm LEVEMIR 100 UNIT /ML SOLN 21 units at bedtime INSULIN DETEMIR [id number] Alyssia Ibanez RN RN insulin isophane, human [...] 04, 2022 11:10am Start: 01-11-2018 End: 08-10-2024 Start: 02-12-2012 End: 04-07-2025 take 5 [IU] by subcu taneous injection three times daily at mealtime HUMALOG 100 UNIT/ML SOLN 5 units sq three times a day with meals INSULIN LISPRO (HUMAN) [id number] Qi John Roly DEPARTMENTAL BUYER End: 12-30-2012 take 5 [IU] by subcutaneous injection three times daily at mealtime HUMALOG 100 UNIT/ML SOLN 5 units sq three times a day with meals INSULIN LISPRO (HUMAN) [id number] Edie Kearney MD Insulin Pump Cart,Auto,Bt-Cn tr [...] Pods (Gen 5)) cartridge Active 0 .Route 10 December 03, 2023 1:00am 1 pod 72 [...] 15/64 0.3 ML MISC INSULIN SYRINGE-NEEDLE U-100 [id number] Alyssia Ibanez RN RN insulin aspart, human [...] 26, 2018 1:50pm Start: 01-21-2015 End: 01-26-2018 Insulin Aspart U-100 Discont inued 10 UNIT SC 3 TIMES DAILY WITH MEALS January 21, 2015 12:00am January 26, 2018 1:50pm NOVOLOG 100 UNIT /ML SOLN INSULIN ASPART [id number] Alyssia Ibanez RN RN insulin, regular, human [...] 08-13-2024 levoFLOXacin 750 mg oral tab let (20 sources) Quinolone Antimicrobial Start: 11-04-2023 End: 11-11-2023 Start: 12-18-2012 End: 01-21-2013 take 1 tablet by mouth once daily LEVAQUIN 500 MG TABS One tablet by mouth daily for 5 days LEVOFLOXACIN [id number] Qi Dunham DEPARTMENTAL BUYER lisinopril 2.5 mg oral table t (20 sources) Angiotensin Converting Enzyme Inhibitor Start: 10-11-2024 End: 05-18-2025 Start: 10-11-2024 End: 11-04-2024 take 1 tablet by mouth once daily Lisinopril 2.5 mg tablet Discontinued 2.5 mg PO daily 90 3 November 04, 2024 11:47am November 04, 2024 4:20pm awaiting mail order RX Start: 08-12-2024 End: 08-24-2024 Start: 06-21-2018 End: 12-31-2018 Start: 06-21-2018 End: 12-31-2018 Start: 01-16-2018 End: 01-29-2018 Start: 01-16-2018 End: 01-29-2018 take 1 tablet by mouth once daily Lisinopril 5 MG tablet Discontinued 5 mg PO DAILY 30 0 January 16, 2018 12:00am January 29, 2018 8:59am Start: 01-21-2015 End: 01-16-2018 Start: 01-21-2015 End: 01-16-2018 1 ml LORazepam 2 mg/ml injec tion (2 sources) Benzodiazepine Start: 08-13-2024 End: 08-13-2024 losartan potassium 25 mg ora l tablet (20 sources) Angiotensin 2 Receptor Darwin Start: 11-19-2019 End: 08-29-2020 50 ml magnesium sulfate 40 m g/ml injection (6 sources) Start: 08-13-2024 End: 08-13-2024 Start: 07-26-2024 End: 07-28-2024 methylPREDNISolone 40 mg injection (4 sources) Corticosteroid Start: 08-12-2024 End: 10-11-2024 take 40 mg intravenously every six hours [...] Nitrofuran Antibacterial Start: 08-09-2024 End: 08-24-2024 nystatin 347516 unt/ml oral suspension (20 sources) Polyene Antifungal Start: 06-23-2018 End: 12-31-2018 oxyCODONE hydrochloride 5 mg oral tablet (10 sources) Opioid Agonist Start: 12-28-2024 End: 01-04-2025 [...] Start: 08-12-2024 End: 08-12-2024 polyethylene glycol 3350 19334 mg powder for oral solution (4 sources) Osmotic Laxative Start: 08-17-2024 End: 08-24-2024 Start: 07-26-2024 End: 08-10-2024 take 17 g by mouth every twenty-four jesus rs as needed for constipation potassium gluconate 2.13 meq oral tablet (10 sources) Start: 12-16-2024 End: 01-06-2025 potassium phosphate 155 mg / sodium phosphate, dibasic 852 mg / sodium phosphate, monobasic 130 mg oral tablet (2 sources) Start: 07-29-2024 End: 07-29-2024 predniSONE 20 mg oral tablet (20 sources) Start: 01-06-2025 End: 01-27-2025 Start: 08-07-2024 End: 08-10-2024 Start: 05-13-2022 End: 07-04-2022 Start: 06-27-2021 End: 02-21-2022 Start: 06-23-2018 End: 07-30-2018 Start: 06-23-2018 End: 07-30-2018 Prednisone 10 MG [...] suspension (20 sources) Start: 04-14-2024 End: 07-23-2024 tamsulosin hydrochloride 0.4 mg oral capsule (2 sources) alpha-Adrenergic Darwin Start: 08-22-2024 End: 08-24-2024 10 actuat tiotropium 0.0025 mg/actuat inhalation spray (20 sources) Anticholinergic Start: 08-12-2024 End: 08-24-2024 Start: 08-02-2024 End: 08-04-2024 Start: 06-21-2018 End: 09-12-2020 Start: 06-21-2018 End: 09-12-2020 SPIRIVA HANDIHAL ER 18 MCG CAPS Daily TIOTROPIUM BROMIDE MONOHYDRATE [id number] Alyssia Ibanez RN RN varenicline 1 mg oral tablet (4 sources) Partial Cholinergic Nicotinic Agonist End: 01-21-2013 take 2 tablets by mouth once daily CHANTIX 1 MG TABS Two tablets by mouth daily VARENICLINE TARTRATE [id number] Edie Kearney MD (6 sources) Start: 08-22-2024 [...] Date Documented Da te Episodic/Chronic Abdominal pain (6 sources) Abdominal pain; Translations: [Unspecified abdominal pain] [...] obstructive pulmonary disease, unspecified] Onset: 07-26-2024 Chronic Complication of device; implant or graft (3 sources) Stenosis of other vascular prosthetic devices, implants and grafts, initial encounter; 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] Onset: 05-31-2025 05-31-2025 Chronic Complication of device; implant or graft (4 sources) Other mechanical complication of surgically created arteriovenous fistula, initial encounter; Translations: [Stenosis of other vascular prosthetic devices, implants and grafts, subsequent encounter] Onset: 05-31-2025 05-28-2025 Episodic Coronary atherosclerosis and other heart disease (20 sources) Coronary atherosclerosis; Translations: [Atherosclerotic heart disease of [place] coronary artery without angina pectoris] Onset: 08-12-2024 02-17-2023 Chronic Deficiency and other anemia (20 sources) Anemia; Translations: [Anemia, unspecified] Onset: 07-26-2024 12-13-2022 Episodic Deficiency and other anemia (10 sources) Normocytic normochromic anemia; Translations: [Anemia, unspecified] [...] with vomiting, unspecified] Onset: 08-12-2024 06-21-2018 Episodic Nonspecific chest pain (10 sources) Chest pain; Translations: [Chest pain, unspecified] Onset: 08-12-2024 08-12-2024 Episodic Nutritional deficiencies (16 sources) Vitamin D deficiency; Translations: [Vitamin D deficiency, unspecified] 01-27-2025 Chronic Nutritional deficiencies (3 sources) Cachexia; Translations: [Cachexia] Onset: 05-31-2025 05-30-2025 Episodic Osteoporosis (19 sources) Osteoporosis; Translations: [Age-related osteoporosis without current [...] nodule] 06-25-2023 Episodic Other lower respiratory disease (20 sources) Multiple nodules of lung; Translations: [Other nonspecific abnormal finding of lung field] Onset: 05-17-2024 02-05-2024 Episodic Other lower respiratory disease (4 sources) Other nonspecific abnormal finding of lung field; Translations: [Other nonspecific abnormal finding of lung field] Onset: 03-24-2025 02-05-2024 Episodic Other lower respiratory disease (3 sources) H/O: pneumonia; Translations: [Personal history of pneumonia (recurrent)] 08-25-2024 Episodic Other lower respiratory disease (10 sources) Dyspnea on exertion; Translations: [Other forms of dyspnea] 05-05-2024 Episodic Other lower respiratory disease (15 sources) Hypercapnia; Translations: [Other abnormalities of breathing] 11-04-2024 Episodic Other lower respiratory disease (3 sources) Dyspnea; Translations: [Dyspnea, unspecified] 05-27-2025 Episodic Other lower respiratory disease (1 source) Dyspnea, unspecified; Translations: [Dyspnea, unspecified] Onset: 05-31-2025 Episodic Other lower respiratory disease (1 source) [...] Episodic Other nutritional; endocrine; and metabolic disorders (10 sources) Severe thinness in adulthood; Translations: [Underweight] 08-01-2024 Episodic Other screening for suspected conditions (not mental disorders or infectious disease) (15 sources) Patient encounter status; Translations: [Encounter for screening for osteoporosis] Onset: 05-31-2025 08-01-2024 Episodic Other skin disorders (20 sources) Lesion of skin of foot; Translations: [Changes in skin texture] Onset: 08-12-2024 12-13-2022 Episodic Other skin disorders (2 sources) Changes in skin texture; Translations: [Other specified disorders of skin] Episodic Pleurisy; pneumothorax; pulmonary collapse (18 sources) Bilateral pleural effusion; Translations: [Pleural effusion, [...] [Tobacco use disorder] Episodic Residual codes; unclassified (19 sources) Harmful pattern of use of nicotine; Translations: [Tobacco use] 07-14-2023 Episodic Respiratory failure; insufficiency; arrest (adult) (20 sources) Chronic respiratory failure; Translations: [Chronic respiratory failure with hypoxia] Onset: 05-18-2025 08-25-2024 Chronic Respiratory failure; insufficiency; arrest (adult) [...] loss of consciousness status unknown, initial encounter (FORMERLY [facility] [place]); Translations: [Traumatic subdural hemorrhage with loss of consciousness status unknown, initial encounter (FORMERLY [facility] [place])] Onset: 07-26-2024 Unclassified (3 sources) PMH - PAST MEDICAL HISTORY OF 03-23-2009 Viral infection (10 sources) Disease caused by 2019-nCoV; Translations: [COVID-19] 07-23-2024 Episodic Viral infection (2 sources) COVID-19; Translations: [COVID-19] Onset: 08-02-2024 Past or Other Problems Problem Classification Problem Date Documented Da te Episodic/Chronic Conditions associated with dizziness or vertigo (6 sources) Dizziness; Translations: [Dizziness and giddiness] Onset: 4 08-12-2024 Episodic Deficiency and other anemia (1 source) Anemia, unspecified; Translations: [Anemia, unspecified] Onset: 5 Episodic Other gastrointestinal disorders (2 sources) H/O: [...] loss of consciousness status unknown, initial encounter (FORMERLY [facility]); Translations: [Traumatic subdural hemorrhage with loss of consciousness status unknown, initial encounter ([facility])] Onset: 4 Results Test Name Value Interpretation Reference Range Facility Anion gap in Serum or Plasma Ordered By: Stacy Huerta on 06-01-2025 Anion gap [Moles/Vol] 18 mmol/L High 5-15 [facility] BUN/creatinine ratioOrdered By: Stacy Huerta on 06-01-2025 Urea nitrogen/Creatinine [Mass ratio] 15.2 mg/mg 10-20 [facility] Carbon dioxide, total [Moles /volume] in Central venous bloodOrdered By: Stacy Huerta on 06-01-2025 CO2 [Moles/Vol] 19.7 mmol/L Low 21.0-32.0 [facility] Chloride assayOrdered By: Marisol Huerta on 06-01-2025 Chloride [Moles/Vol] 93 mmol/L Low 98-108 [facility] Erythrocyte distribution wid th ratioOrdered By: Stacy Huerta on 06-01-2025 Erythrocyte distribution width (RBC) [Ratio] 14.6 % 11.6-14.6 [facility] Erythrocyte distribution wid th standard deviationOrdered By: Stacy Huerta on 06-01-2025 Erythrocyte distribution width (RBC) [Ratio] 48.6 fl High 35.1-43.9 [facility] Glomerular filtration rate ( GFR) estimation/1.73 sq m using serum, plasma, or whole bOrdered By: Stacy Huerta on 06-01-2025 GFR/1.73 sq M.predicted among non-blacks MDRD (S/P/Bld) [Vol rate/Area] 10 mL/min/{1.73_m2} Low >60 [facility] Gl[facility] measurement at [facility] deOrdered By: Stacy Huerta on 06-01-2025 Glucose [Mass/Vol] 274 mg/dL High 74-106 [facility] Hematocrit Auto (Bld) [Volum e fraction]Ordered By: Stacy Huerta on 06-01-2025 Hematocrit (Bld) [Volume fraction] 31.1 % Low 37-47 [facility] Hemoglobin A1c percentageOrd ered By: Favian Sinclair on 06-01-2025 HbA1c (Bld) [Mass fraction] 5.9 % High <5.7 [facility] Hemoglobin measurementOrdere d By: Stacy Huerta on 06-01-2025 Hemoglobin (Bld) [Mass/Vol] 9.4 g/dL Low 12.0-15.0 [facility] MCV (mean corpuscular volume ) determinationOrdered By: Stacy Huerta on 06-01-2025 MCV (RBC) [Entitic vol] 93.4 fL 81-99 [facility] Mean corpuscular hemoglobin (MCH) determinationOrdered By: Stacy Huerta on 06-01-2025 MCH (RBC) [Entitic mass] 28.2 pg 27.0-32.0 [facility] Platelet countOrdered By: Marisol Huerta on 06-01-2025 Platelets (Bld) [#/Vol] 202 10*3/uL 150-450 [facility] Potassium measurement (mass/ volume)Ordered By: Stacy Huerta on 06-01-2025 Potassium (Unsp spec) [Mass/Vol] 4.5 mmol/L 3.3-5.1 [facility] RBC Auto (Bld) [#/Vol]Ordere d By: Stacy Huerta on 06-01-2025 RBC (Bld) [#/Vol] 3.33 10*6/uL Low 4.2-5.4 [facility] Serum creatinine measurement (mass/volume)Ordered By: Stacy Huerta on 06-01-2025 Creatinine [Mass/Vol] 4.58 mg/dL High 0.70-1.20 [facility] Serum glucose measurement (m ass/volume)Ordered By: Stacy Huerta on 06-01-2025 Glucose [Mass/Vol] 255 mg/dL High 70-99 [facility] Serum or plasma calcium lesly urement (mass/volume)Ordered By: Stacy Huerta on 06-01-2025 Calcium [Mass/Vol] 8.3 mg/dL 7.6-11.0 [facility] Serum or plasma urea nitroge n measurement (mass/volume)Ordered By: Stacy Huerta on 06-01-2025 Urea nitrogen [Mass/Vol] 70 mg/dL High 4-19 [facility] Sodium levelOrdered By: Veronica Huerta on 06-01-2025 Sodium [Moles/Vol] 131 mmol/L Low 133-145 [facility] White blood cell (WBC) count Ordered By: Stacy Huerta on 06-01-2025 WBC (Bld) [#/Vol] 5.4 10*3/uL 4.4-11.0 [facility] Absolute lymphocyte countOrd ered By: Stacy Lee on 05-31-2025 Lymphocytes Auto (Unsp spec) [#/Vol] 0.71 10*3/uL Low 0.83-4.51 [facility] Automated lymphocyte count a s percentage of total leukocytesOrdered By: Stacy Huerta on 05-31-2025 Lymphocytes/100 WBC Auto (Unsp spec) 15.5 % Low 19-41 [facility] Basic Metabolic Profile (BMP )on 05-31-2025 BUN/CRE 15.5 RATIO Normal 10-20 [facility] Comment on above: Performed By: #### L 501.2300, L100.0100, L501.5200, L500.2500 ####[facility] [address] [place], [address] Calcium [Mass/Vol] 8.5 mg/dL Normal 7.6-11.0 [facility] Comment on above: Performed By: #### L 501.2300, L100.0100, L501.5200, L500.2500 ####[facility] [address] [place], [address] Chloride [Moles/Vol] 95 mmol/L Low 98-108 [facility] Comment on above: Performed By: #### L 501.2300, L100.0100, L501.5200, L500.2500 ####[facility] [address] [place], [address] CO2 [Moles/Vol] 22.1 mmol/L Normal 21.0-32.0 [facility] Comment on above: Performed By: #### L 501.2300, L100.0100, L501.5200, L500.2500 ####[facility] [address] [place], [address] Creatinine [Mass/Vol] 3.48 mg/dL High 0.70-1.20 [facility] Comment on above: Performed By: #### L 501.2300, L100.0100, L501.5200, L500.2500 ####[facility] [address] [place], [address] ECRCL 11.65 ml/min Low 50-250 [facility] Comment on above: Performed By: #### L 501.2300, L100.0100, L501.5200, L500.2500 ####[facility] [address] [place], [address] GAP 16 High 5-15 [facility] Comment on above: Performed By: #### L 501.2300, L100.0100, L501.5200, L500.2500 ####[facility] [address] [place], [address] GFR/1.73 sq M.predicted among non-blacks MDRD (S/P/Bld) [Vol rate/Area] 14 mL/min/{1.73_m2} Low >60 [facility] Comment on above: Result Comment: mL/m in/1.73m2 CKD-EPI Creatinine Equation (2020) Performed By: #### L 501.2300, L100.0100, L501.5200, L500.2500 ####[facility] [address] [place], [address] Glucose [Mass/Vol] 265 mg/dL High 70-99 [facility] Comment on above: Performed By: #### L 501.2300, L100.0100, L501.5200, L500.2500 ####[facility] [address] [place], [address] Potassium [Moles/Vol] 5.1 mmol/L Normal 3.3-5.1 [facility] Comment on above: Performed By: #### L 501.2300, L100.0100, L501.5200, L500.2500 ####[facility] [address] [place], [address] Sodium [Moles/Vol] 133 mmol/L Normal 133-145 [facility] Comment on above: Performed By: #### L 501.2300, L100.0100, L501.5200, L500.2500 ####[facility] [address] [place], [address] Urea nitrogen [Mass/Vol] 54 mg/dL High 4-19 [facility] Comment on above: Performed By: #### L 501.2300, L100.0100, L501.5200, L500.2500 ####[facility] [address] [place], [address] Basophil percentageOrdered B y: Stacyalison Huerta on 05-31-2025 Basophils/100 WBC (Bld) 0.4 % 0-1 [facility] Bedside Glucoseon 05-31-2025 FINGERSTICK GLU 270 mg/dL High 74-106 [facility] Comment on above: Result Comment: SHELLY GEMENT OF PATIENT CARE PER NURSING PROTOCOL Performed By: #### L 501.080 ####[facility] [address] [place], [address] FINGERSTICK GLU 318 mg/dL High 74-106 [facility] Comment on above: Result Comment: SHELLY GEMENT OF PATIENT CARE PER NURSING PROTOCOL Performed By: #### L 501.080 ####[facility] [address] [place], [address] FINGERSTICK GLU 276 mg/dL High 74-106 [facility] Comment on above: Result Comment: SHELLY GEMENT OF PATIENT CARE PER NURSING PROTOCOL Performed By: #### L 501.080 ####[facility] [address] [place], [address] FINGERSTICK GLU 275 mg/dL High 74-106 [facility] Comment on above: Result Comment: SHELLY GEMENT OF PATIENT CARE PER NURSING PROTOCOL Performed By: #### L 501.080 ####[facility] [address] [place], [address] FINGERSTICK GLU 226 mg/dL High 74-106 [facility] Comment on above: Result Comment: SHELLY GEMENT OF PATIENT CARE PER NURSING PROTOCOL Performed By: #### L 501.080 ####[facility] [address] [place], [address] FINGERSTICK GLU 264 mg/dL High 74-106 [facility] Comment on above: Result Comment: SHELLY GEMENT OF PATIENT CARE PER NURSING PROTOCOL Performed By: #### L 501.080 ####[facility] [address] [place], [address] FINGERSTICK GLU 187 mg/dL High 74-106 [facility] Comment on above: Result Comment: SHELLY GEMENT OF PATIENT CARE PER NURSING PROTOCOL Performed By: #### L 501.080 ####[facility] [address] [place], [address] CBC W/Diff, Automatedon 07-2 -2024 Absolute Lymph 0.71 X10 3/uL Low 0.83-4.51 [facility] Comment on above: Performed By: #### L 501.2300, L100.0100, L501.5200, L500.2500 ####[facility] [address] [place], [address] Absolute Neut 3.2 X10 3/uL Normal 2.0-7.7 [facility] Comment on above: Performed By: #### L 501.2300, L100.0100, L501.5200, L500.2500 ####[facility] [address] [place], [address] Basophils/100 WBC (Bld) 0.4 % Normal 0-1 [facility] Comment on above: Performed By: #### L 501.2300, L100.0100, L501.5200, L500.2500 ####[facility] [address] [place], [address] Eosinophils/100 WBC (Bld) 3.9 % Normal 0-5 [facility] Comment on above: Performed By: #### L 501.2300, L100.0100, L501.5200, L500.2500 ####[facility] [address] [place], [address] Erythrocyte distribution width (RBC) [Ratio] 15.1 % High 11.6-14.6 [facility] Comment on above: Performed By: #### L 501.2300, L100.0100, L501.5200, L500.2500 ####[facility] [address] [place], [address] Hematocrit (Bld) [Volume fraction] 31.6 % Low 37-47 [facility] Comment on above: Performed By: #### L 501.2300, L100.0100, L501.5200, L500.2500 ####[facility] [address] [place], [address] Hemoglobin (Bld) [Mass/Vol] 9.4 g/dL Low 12.0-15.0 [facility] Comment on above: Performed By: #### L 501.2300, L100.0100, L501.5200, L500.2500 ####[facility] [address] [place], [address] IG% 0.700 Normal 0.0-0.9 [facility] Comment on above: Result Comment: IG% - Immature Granulocytes (promyelocytes, myelocytes andmetamyelocytes) > 1% indicates that a LEFT SHIFT is Present. Performed By: #### L 501.2300, L100.0100, L501.5200, L500.2500 ####[facility] [address] [place], [address] Lymphocytes/100 WBC (Bld) 15.5 % Low 19-41 [facility] Comment on above: Performed By: #### L 501.2300, L100.0100, L501.5200, L500.2500 ####[facility] [address] [place], [address] MCH (RBC) [Entitic mass] 28.6 pg Normal 27.0-32.0 [facility] Comment on above: Performed By: #### L 501.2300, L100.0100, L501.5200, L500.2500 ####[facility] [address] [place], [address] MCHC (RBC) [Mass/Vol] 29.7 g/dL Low 32-36 [facility] Comment on above: Performed By: #### L 501.2300, L100.0100, L501.5200, L500.2500 ####[facility] [address] [place], [address] MCV (RBC) [Entitic vol] 96.0 fL Normal 81-99 [facility] Comment on above: Performed By: #### L 501.2300, L100.0100, L501.5200, L500.2500 ####[facility] [address] [place], [address] Monocytes/100 WBC (Bld) 9.6 % Normal 0-10 [facility] Comment on above: Performed By: #### L 501.2300, L100.0100, L501.5200, L500.2500 ####[facility] [address] [place], [address] Neutrophils/100 WBC (Bld) 69.9 % Normal 47-70 [facility] Comment on above: Performed By: #### L 501.2300, L100.0100, L501.5200, L500.2500 ####[facility] [address] [place], [address] Nucleated RBC (Bld) [#/Vol] 0 10*3/uL Normal 0-5 [facility] Comment on above: Performed By: #### L 501.2300, L100.0100, L501.5200, L500.2500 ####[facility] [address] [place], [address] Platelet mean volume (Bld) [Entitic vol] 9.1 fL Normal 6.2-12.0 [facility] Comment on above: Performed By: #### L 501.2300, L100.0100, L501.5200, L500.2500 ####[facility] [address] [place], [address] Platelets (Bld) [#/Vol] 169 10*3/uL Normal 150-450 [facility] Comment on above: Performed By: #### L 501.2300, L100.0100, L501.5200, L500.2500 ####[facility] [address] [place], [address] RBC (Bld) [#/Vol] 3.29 10*6/uL Low 4.2-5.4 [facility] Comment on above: Performed By: #### L 501.2300, L100.0100, L501.5200, L500.2500 ####[facility] [address] [place], [address] RDW SD 52.3 fl High 35.1-43.9 [facility] Comment on above: Performed By: #### L 501.2300, L100.0100, L501.5200, L500.2500 ####[facility] [address] [place], [address] WBC (Bld) [#/Vol] 4.6 10*3/uL Normal 4.4-11.0 [facility] Comment on above: Performed By: #### L 501.2300, L100.0100, L501.5200, L500.2500 ####[facility] [address] [place], [place], [address] Eosinophil percentageOrdered By: Stacy Huerta on 05-31-2025 Eosinophils/100 WBC (Bld) 3.9 % 0-5 [facility] Immature granulocytes/100 WB C Auto (Bld)Ordered By: Stacy Huerta on 05-31-2025 Immature granulocytes/100 WBC (Bld) 0.700 % 0.0-0.9 [facility] Magnesiumon 05-31-2025 Magnesium [Mass/Vol] 2.2 mg/dL Normal 1.5-2.2 [facility] Comment on above: Performed By: #### L 501.2300, L100.0100, L501.5200, L500.2500 ####[facility] [address] [place], [place], [address] Magnesium measurement (mass/ volume)Ordered By: Stacy Huerta on 05-31-2025 Magnesium (Unsp spec) [Mass/Vol] 2.2 mg/dL 1.5-2.2 [facility] Monocyte percentageOrdered B y: Stacy Huerta on 05-31-2025 Monocytes/100 WBC (Bld) 9.6 % 0-10 [facility] Neutrophil percentageOrdered By: Stacy Huerta on 05-31-2025 Neutrophils/100 WBC (Bld) 69.9 % 47-70 [facility] Phosphoruson 05-31-2025 Phosphate [Mass/Vol] 5.9 mg/dL High 2.7-4.5 [facility] Comment on above: Performed By: #### L 501.2300, L100.0100, L501.5200, L500.2500 ####[facility] [address] [place], [place], [address] Arterial study reportOrdered By: Favian Sinclair on 05-30-2025 Noninvasive arteriosclerosis study report [facility] Work Phone: Bedside Glucoseon 05-30-2025 FINGERSTICK GLU 134 mg/dL High 74-106 [facility] Comment on above: Result Comment: SHELLY GEMENT OF PATIENT CARE PER NURSING PROTOCOL Performed By: #### L 501.080 ####[facility] [address] [place], [address] FINGERSTICK GLU 123 mg/dL High 74-106 [facility] Comment on above: Result Comment: SHELLY GEMENT OF PATIENT CARE PER NURSING PROTOCOL Performed By: #### L 501.080 ####[facility] [address] [place], [address] FINGERSTICK GLU 206 mg/dL High 74-106 [facility] Comment on above: Result Comment: SHELLY GEMENT OF PATIENT CARE PER NURSING PROTOCOL Performed By: #### L 501.080 ####[facility] [address] [place], [address] FINGERSTICK GLU 167 mg/dL High 74-106 [facility] Comment on above: Result Comment: SHELLY GEMENT OF PATIENT CARE PER NURSING PROTOCOL Performed By: #### L 501.080 ####[facility] [address] [place], [address] Bilirubin Test strip Ql (U)O rdered By: Stacy Huerta on 05-30-2025 Bilirubin Ql (U) Negative Negative [facility] Blood Gases by [facility] 025 Base excess Calc (Bld) [Moles/Vol] 4 mmol/L High -2 to +2 [facility] Comment on above: Performed By: #### L 9000.0800 ####[facility] [address] [place], [address] Blood Gas Type ART Normal [facility] Comment on above: Performed By: #### L 9000.0800 ####[facility] [address] [place], [address] CO2 [Moles/Vol] 32 mmol/L Normal [facility] Comment on above: Performed By: #### L 9000.0800 ####[facility] [address] [place], [address] FI02 7.0 Normal [facility] Comment on above: Performed By: #### L 8999.0800 ####[facility] [address] [place], [address] HCO3 (Bld) [Moles/Vol] 30.2 mmol/L High 22-26 [facility] Comment on above: Performed By: #### L 0.0800 ####[facility] [address] [place], [address] Mode Not entered [facility] Comment on above: Performed By: #### L 0.0800 ####[facility] [address] [place], [address] O2 Delivery Dev Not entered [facility] Comment on above: Performed By: #### L 8999.0800 ####[facility] [address] [place], [address] pCO2 60.3 mmHg High 35-45 [facility] Comment on above: Performed By: #### L 8999.0800 ####[facility] [address] [place], [address] pH (Bld) 7.31 [pH] Low 7.35-7.45 [facility] Comment on above: Performed By: #### L 8999.0800 ####[facility] [address] [place], [address] PO2 80 mmHG Normal 75-100 [facility] Comment on above: Performed By: #### L 0.0800 ####[facility] [address] [place], [address] SITE Not entered [facility] Comment on above: Performed By: #### L 0.0800 ####[facility] [address] [place], [address] SO2 94 Low 95-99 [facility] Comment on above: Performed By: #### L 8999.0800 ####[facility] [address] [place], [address] Base excess Calc (Bld) [Moles/Vol] 0 mmol/L Normal -2 to +2 [facility] Comment on above: Performed By: #### L 0.0800 ####[facility] [address] [place], [address] Blood Gas Type ART Normal [facility] Comment on above: Performed By: #### L 0.0800 ####[facility] [address] [place], [address] CO2 [Moles/Vol] 30 mmol/L Normal [facility] Comment on above: Performed By: #### L 8999.0800 ####[facility] [address] [place], [address] FI02 3.0 Normal [facility] Comment on above: Performed By: #### L 8999.0800 ####[facility] [address] [place], [address] HCO3 (Bld) [Moles/Vol] 27.9 mmol/L High 22-26 [facility] Comment on above: Performed By: #### L 8999.0800 ####[facility] [address] [place], [address] Mode Not entered Normal [facility] Comment on above: Performed By: #### L 0.0800 ####[facility] [address] [place], [address] O2 Delivery Dev Not entered Normal [facility] Comment on above: Performed By: #### L 0.0800 ####[facility] [address] [place], [address] pCO2 65.8 mmHg High 35-45 [facility] Comment on above: Performed By: #### L 9000.0800 ####[facility] [address] [place], [address] pH (Bld) 7.24 [pH] Low 7.35-7.45 [facility] Comment on above: Performed By: #### L 9000.0800 ####[facility] [address] [place], [address] PO2 83 mmHG Normal 75-100 [facility] Comment on above: Performed By: #### L 9000.0800 ####[facility] [address] [place], [address] SITE Not entered Normal [facility] Comment on above: Performed By: #### L 9000.0800 ####[facility] [address] [place], [address] SO2 93 Low 95-99 [facility] Comment on above: Performed By: #### L 9000.0800 ####[facility] [address] [place], [address] Blood base excess determinat ionOrdered By: Stacy Huerta on 05-30-2025 Base excess Calc (BldV) [Moles/Vol] 4 mmol/L High -2-2 [facility] Blood bicarbonate measuremen tOrdered By: Stacy Huerta on 05-30-2025 HCO3 (Bld) [Moles/Vol] 30.2 mmol/L High 22- [facility] CBC-Complete Blood Cnt No Di ffon 05-30-2025 Erythrocyte distribution width (RBC) [Ratio] 15.1 % High 11.6-14.6 [facility] Comment on above: Performed By: #### L 500.3600, L100.0500 ####[facility] [address] [place], [address] Hematocrit (Bld) [Volume fraction] 30.9 % Low 37-47 [facility] Comment on above: Performed By: #### L 500.3600, L100.0500 ####[facility] [address] [place], [address] Hemoglobin (Bld) [Mass/Vol] 9.2 g/dL Low 12.0-15.0 [facility] Comment on above: Performed By: #### L 500.3600, L100.0500 ####[facility] [address] [place], [address] MCH (RBC) [Entitic mass] 27.8 pg Normal 27.0-32.0 [facility] Comment on above: Performed By: #### L 500.3600, L100.0500 ####[facility] [address] [place], [address] MCHC (RBC) [Mass/Vol] 29.8 g/dL Low 32-36 [facility] Comment on above: Performed By: #### L 500.3600, L100.0500 ####[facility] [address] [place], [address] MCV (RBC) [Entitic vol] 93.4 fL Normal 81-99 [facility] Comment on above: Performed By: #### L 500.3600, L100.0500 ####[facility] [address] [place], [address] Platelet mean volume (Bld) [Entitic vol] 9.8 fL Normal 6.2-12.0 [facility] Comment on above: Performed By: #### L 500.3600, L100.0500 ####[facility] [address] [place], [address] Platelets (Bld) [#/Vol] 207 10*3/uL Normal 150-450 [facility] Comment on above: Performed By: #### L 500.3600, L100.0500 ####[facility] [address] [place], [address] RBC (Bld) [#/Vol] 3.31 10*6/uL Low 4.2-5.4 [facility] Comment on above: Performed By: #### L 500.3600, L100.0500 ####[facility] [address] [place], [address] RDW SD 50.5 fl High 35.1-43.9 [facility] Comment on above: Performed By: #### L 500.3600, L100.0500 ####[facility] [address] [place], [address] WBC (Bld) [#/Vol] 5.8 10*3/uL Normal 4.4-11.0 [facility] Comment on above: Performed By: #### L 500.3600, L100.0500 ####[facility] [address] [place], [address] CRPon 05-30-2025 C-REACTIVE PROT 53.70 mg/L High 0.0-3.0 [facility] Comment on above: Performed By: #### L 501.6710, L101.9900 ####[facility] [address] [place], [address] Chest 1 View (Portable)on Chest 1 View (Portable) Normal [facility] Consultation - Surgicalon Consultation - Surgical Normal [facility] Electrocardiogram reportOrde red By: Salomon Robbins on 05-30-2025 EKG study [facility] Work Phone: Erythrocyte Sed Rateon 05-30 SED RATE 22 mm/hr Normal 0-30 [facility] Comment on above: Performed By: #### L 501.6710, L101.9900 ####[facility] [address] [place], [place], [address] Erythrocyte sedimentation ra teOrdered By: Stacy Huerta on 05-30-2025 ESR (Bld) [Velocity] 22 mm/h 0-30 [facility] Ketones Test strip Ql (U)Ord ered By: Stacy Huerta on 05-30-2025 Ketones Ql (U) Negative Negative [facility] M100.019on 05-30-2025 M100.019 Negative Normal [facility] Comment on above: Performed By: #### M 100.638, M100.019 ####[facility] [address] [place], [place], [id number] Measurement, pHOrdered By: Familia Huerta on 05-30-2025 pH (Unsp spec) 7.31 [pH] Low 7.35-7.45 [facility] Mucus LM Ql (Urine sed)Order ed By: Stacy Huerta on 05-30-2025 Mucus Ql (Urine sed) 0 SEEN /hpf [facility] Natriuretic peptide.B prohor alex N-Terminal [Mass/volume] in Serum or PlasmaOrdered By: Christy Huerta on 05-30-2025 Natriuretic peptide.B prohormone N-Terminal [Mass/Vol] > 44073 pg/mL High <900 [facility] Nitrite Test strip Ql (U)Ord ered By: Stacy Huerta on 05-30-2025 Nitrite Ql (U) Negative Negative [facility] No Panel InformationOrdered By: Stacy Huerta on 05-30-2025 ART [facility] Not entered [facility] Pro- Brain NATRIURETIC PEPTI Rinku 05-30-2025 proBNP > 44173 High <=900 [facility] Comment on above: Order Comment: PEYTON HUTSON Result Comment: DAYAMI ICATEHeart Failure Unlikely: < 300 pg/mLHeart Failure Likely< 50 Years: > 450 pg/mL50-75 Years: > 900 pg/mL>75 Years: > 1800 pg/mL Performed By: #### L 503.7505 ####[facility] [address] [place], [address] Protein Test strip Ql (U)Ord ered By: Stacy Huerat on 05-30-2025 Protein Ql (U) 500 mg/dl High Negative [facility] RESPIRATORY PANEL MOLECULARo n 05-30-2025 RP PANEL Normal [facility] Comment on above: Performed By: #### M 100.638, M100.019 ####[facility] [address] [place], [address] Renal Profileon 05-30-2025 Albumin [Mass/Vol] 3.5 g/dL Normal 3.4-4.8 [facility] Comment on above: Performed By: #### L 500.3600, L100.0500 ####[facility] [address] [place], [address] BUN/CRE 15.0 RATIO Normal 10-20 [facility] Comment on above: Performed By: #### L 500.3600, L100.0500 ####[facility] [address] [place], [address] Calcium [Mass/Vol] 8.7 mg/dL Normal 7.6-11.0 [facility] Comment on above: Performed By: #### L 500.3600, L100.0500 ####[facility] [address] [place], [address] Chloride [Moles/Vol] 102 mmol/L Normal 98-108 [facility] Comment on above: Performed By: #### L 500.3600, L100.0500 ####[facility] [address] [place], [address] CO2 [Moles/Vol] 26.9 mmol/L Normal 21.0-32.0 [facility] Comment on above: Performed By: #### L 500.3600, L100.0500 ####[facility] [address] [place], [address] Creatinine [Mass/Vol] 4.71 mg/dL High 0.70-1.20 [facility] Comment on above: Performed By: #### L 500.3600, L100.0500 ####[facility] [address] [place], [address] ECRCL 8.97 ml/min Invalid Interpretation Code 50-250 [facility] Comment on above: Performed By: #### L 500.3600, L100.0500 ####[facility] [address] [place], [address] GAP 11 Normal 5-15 [facility] Comment on above: Performed By: #### L 500.3600, L100.0500 ####[facility] [address] [place], [address] GFR/1.73 sq M.predicted among non-blacks MDRD (S/P/Bld) [Vol rate/Area] 10 mL/min/{1.73_m2} Low >60 [facility] Comment on above: Result Comment: mL/m in/1.73m2 CKD-EPI Creatinine Equation (2020) Performed By: #### L 500.3600, L100.0500 ####[facility] [address] [place], [address] Glucose [Mass/Vol] 203 mg/dL High 70-99 [facility] Comment on above: Performed By: #### L 500.3600, L100.0500 ####[facility] [address] [place], [address] Phosphate [Mass/Vol] 4.1 mg/dL Normal 2.7-4.5 [facility] Comment on above: Performed By: #### L 500.3600, L100.0500 ####[facility] [address] [place], [address] Potassium [Moles/Vol] 4.8 mmol/L Normal 3.3-5.1 [facility] Comment on above: Performed By: #### L 500.3600, L100.0500 ####[facility] [address] [place], [address] Sodium [Moles/Vol] 140 mmol/L Normal 133-145 [facility] Comment on above: Performed By: #### L 500.3600, L100.0500 ####[facility] [address] [place], [address] Urea nitrogen [Mass/Vol] 71 mg/dL High 4-19 [facility] Comment on above: Performed By: #### L 500.3600, L100.0500 ####[facility] [address] [place], [address] Respiratory pathogens detect ion panel by molecular detection methodOrdered By: Stacy Huerta on 05-30-2025 Respiratory pathogens DNA and RNA panel MARISA+probe (Resp) [facility] [id number] By: Nate Huerta on 05-30-2025 SARS-CoV-2 (COVID-19) RNA MARISA+probe Ql (Unsp spec) [facility] Serum or plasma C reactive p rotein measurement (mass/volume)Ordered By: Stacy Huerta on 05-30-2025 CRP [Mass/Vol] 53.70 mg/L High 0.0-3.0 [facility] Serum or plasma albumin lesly urement (mass/volume)Ordered By: Christy Huerta on 05-30-2025 Albumin [Mass/Vol] 3.5 g/dL 3.4-4.8 [facility] Squamous epithelial cells de tection in urine sediment by light microscopyOrdered By: Stacy Huerta on 05-30-2025 Epithelial cells.squamous LM Ql (Urine sed) 0-5 SEEN /hpf 5-10 [facility] Total carbon dioxide measure mentOrdered By: Stacy Huerta on 05-30-2025 CO2 [Moles/Vol] 32 mmol/L [facility] Urinalysis, Completeon 05-30 EPI,SQUAMOUS 0-5 SEEN Normal 5-10 [facility] Comment on above: Order Comment: Urine , Random Performed By: #### L 400.0001 ####[facility] [address] [place], [address] RBC 0-5 SEEN Normal 0-5 [facility] Comment on above: Order Comment: Urine , Random Performed By: #### L 400.0001 ####[facility] [address] [place], [address] WBC 0-5 SEEN Normal 0-5 [facility] Comment on above: Order Comment: Urine , Random Performed By: #### L 400.0001 ####[facility] [address] [place], [address] BACTERIA 0 SEEN Normal None Seen [facility] Comment on above: Order Comment: Urine , Random Performed By: #### L 400.0001 ####[facility] [address] [place], [address] Mucus Ql (Urine sed) 0 SEEN Normal [facility] Comment on above: Order Comment: Urine , Random Performed By: #### L 400.0001 ####[facility] [address] [place], [address] Urine clarityOrdered By: Layla Huerta on 05-30-2025 Clarity (U) Clear Clear [facility] Urine color determinationOrd ered By: Stacy Huerta on 05-30-2025 Color (U) Straw Yellow [facility] Urine glucose detectionOrder ed By: Stacy Huerta on 05-30-2025 Glucose Ql (U) 100 mg/dl High Normal [facility] Urine leukocyte esterase det ection by dipstickOrdered By: Stacy Huerta on 05-30-2025 Leukocyte esterase Test strip Ql (U) 25 /ul High Negative [facility] Urine pHOrdered By: Stacy Huerta on 05-30-2025 pH (U) 6.0 [pH] 5.0 - 8.0 [facility] Urine sediment bacteria coun t by microscopy (number/high power field)Ordered By: Stacy Huerta on 05-30-2025 Bacteria LM.HPF (Urine sed) [#/Area] 0 /[HPF] None Seen [facility] Urine specific gravity measu rementOrdered By: Stacy Huerta on 05-30-2025 Specific gravity (U) [Rel density] 1.020 1.002-1.030 [facility] Urine urobilinogen measureme ntOrdered By: Stacy Huerta on 05-30-2025 Urobilinogen Ql (U) Normal mg/dl Normal [facility] White blood cell countOrdere d By: Stacy Huerta on 05-30-2025 White blood cell count 0-5 SEEN /hpf 0-5 [facility] Basic Metabolic Profile (BMP )on 05-29-2025 BUN/CRE 15.5 RATIO Normal 10-20 [facility] Comment on above: Performed By: #### L 500.2500 ####[facility] [address] [facility] [address] Calcium [Mass/Vol] 8.5 mg/dL Normal 7.6-11.0 [facility] Comment on above: Performed By: #### L 500.2500 ####[facility] [address] [facility] [address] Chloride [Moles/Vol] 104 mmol/L Normal 98-108 [facility] Comment on above: Performed By: #### L 500.2500 ####[facility] [address] [place], [address] CO2 [Moles/Vol] 22.5 mmol/L Normal 21.0-32.0 [facility] Comment on above: Performed By: #### L 500.2500 ####[facility] [address] [place], [address] Creatinine [Mass/Vol] 4.44 mg/dL High 0.70-1.20 [facility] Comment on above: Performed By: #### L 500.2500 ####[facility] [address] [place], [address] ECRCL 9.83 ml/min Invalid Interpretation Code 50-250 [facility] Comment on above: Performed By: #### L 500.2500 ####[facility] [address], [address] GAP 12 Normal 5-15 [facility] Comment on above: Performed By: #### L 500.2500 ####[facility] [address] [place], [address] GFR/1.73 sq M.predicted among non-blacks MDRD (S/P/Bld) [Vol rate/Area] 10 mL/min/{1.73_m2} Low >60 [facility] Comment on above: Result Comment: mL/m in/1.73m2 CKD-EPI Creatinine Equation (2020) Performed By: #### L 500.2500 ####[facility] [address] [place], [address] Glucose [Mass/Vol] 164 mg/dL High 70-99 [facility] Comment on above: Performed By: #### L 500.2500 ####[facility] [address] [place], [address] Potassium [Moles/Vol] 5.3 mmol/L High 3.3-5.1 [facility] Comment on above: Performed By: #### L 500.2500 ####[facility] [address] [place], [address] Sodium [Moles/Vol] 139 mmol/L Normal 133-145 [facility] Comment on above: Performed By: #### L 500.2500 ####[facility] [address] [place], [address] Urea nitrogen [Mass/Vol] 69 mg/dL High 4-19 [facility] Comment on above: Performed By: #### L 500.2500 ####[facility] [address] [place], [address] Bedside Glucoseon 05-29-2025 FINGERSTICK GLU 205 mg/dL High 74-106 [facility] Comment on above: Result Comment: SHELLY GEMENT OF PATIENT CARE PER NURSING PROTOCOL Performed By: #### L 501.080 ####[facility] [address] [place], [address] FINGERSTICK GLU 195 mg/dL High 74-106 [facility] Comment on above: Result Comment: SHELLY GEMENT OF PATIENT CARE PER NURSING PROTOCOL Performed By: #### L 501.080 ####[facility] [address] [place], [address] FINGERSTICK GLU 146 mg/dL High 74-106 [facility] Comment on above: Result Comment: SHELLY GEMENT OF PATIENT CARE PER NURSING PROTOCOL Performed By: #### L 501.080 ####[facility] [address] [place], [address] FINGERSTICK GLU 131 mg/dL High 74-106 [facility] Comment on above: Result Comment: SHELLY GEMENT OF PATIENT CARE PER NURSING PROTOCOL Performed By: #### L 501.080 ####[facility] [address] [place], [address] FINGERSTICK GLU 96 mg/dL Normal 74-106 [facility] Comment on above: Result Comment: SHELLY GEMENT OF PATIENT CARE PER NURSING PROTOCOL Performed By: #### L 501.080 ####[facility] [address] [place], [address] FINGERSTICK GLU 142 mg/dL High 74-106 [facility] Comment on above: Result Comment: SHELLY GEMENT OF PATIENT CARE PER NURSING PROTOCOL Performed By: #### L 501.080 ####[facility] [address] [place], [address] FINGERSTICK GLU 94 mg/dL Normal 74-106 [facility] Comment on above: Result Comment: SHELLY ENGEL OF PATIENT CARE PER NURSING PROTOCOL Performed By: #### L 501.080 ####[facility] [address] [place], [address] AV Fistula/Dialysis Graft Sc anon 05-28-2025 AV Fistula/Dialysis Graft Scan Normal [facility] Basic Metabolic Profile (BMP )on 05-28-2025 BUN/CRE 13.6 RATIO Normal 10-20 [facility] Comment on above: Performed By: #### L 100.0100, L500.2500 ####[facility] [address] [place], [address] Calcium [Mass/Vol] 8.3 mg/dL Normal 7.6-11.0 [facility] Comment on above: Performed By: #### L 100.0100, L500.2500 ####[facility] [address] [place], [address] Chloride [Moles/Vol] 105 mmol/L Normal 98-108 [facility] Comment on above: Performed By: #### L 100.0100, L500.2500 ####[facility] [address] [place], [address] CO2 [Moles/Vol] 24.3 mmol/L Normal 21.0-32.0 [facility] Comment on above: Performed By: #### L 100.0100, L500.2500 ####[facility] [address] [place], [address] Creatinine [Mass/Vol] 4.05 mg/dL High 0.70-1.20 [facility] Comment on above: Performed By: #### L 100.0100, L500.2500 ####[facility] [address] [place], [address] ECRCL 10.43 ml/min Low 50-250 [facility] Comment on above: Performed By: #### L 100.0100, L500.2500 ####[facility] [address] [place], [address] GAP 12 Normal 5-15 [facility] Comment on above: Performed By: #### L 100.0100, L500.2500 ####[facility] [address] [place], [address] GFR/1.73 sq M.predicted among non-blacks MDRD (S/P/Bld) [Vol rate/Area] 12 mL/min/{1.73_m2} Low >60 [facility] Comment on above: Result Comment: mL/m in/1.73m2 CKD-EPI Creatinine Equation (2020) Performed By: #### L 100.0100, L500.2500 ####[facility] [address] [place], [address] Glucose [Mass/Vol] 176 mg/dL High 70-99 [facility] Comment on above: Performed By: #### L 100.0100, L500.2500 ####[facility] [address] [place], [address] Potassium [Moles/Vol] 4.8 mmol/L Normal 3.3-5.1 [facility] Comment on above: Performed By: #### L 100.0100, L500.2500 ####[facility] [address] [place], [address] Sodium [Moles/Vol] 141 mmol/L Normal 133-145 [facility] Comment on above: Performed By: #### L 100.0100, L500.2500 ####[facility] [address] [place], [address] Urea nitrogen [Mass/Vol] 55 mg/dL High 4-19 [facility] Comment on above: Performed By: #### L 100.0100, L500.2500 ####[facility] [address] [place], [address] Bedside Glucoseon 05-28-2025 FINGERSTICK GLU 334 mg/dL High [facility]106 [facility] Comment on above: Result Comment: SHELLY GEMENT OF PATIENT CARE PER NURSING PROTOCOL Performed By: #### L 501.080 ####[facility] [address], [address] FINGERSTICK GLU 313 mg/dL High 74-106 [facility] Comment on above: Result Comment: SHELLY GEMENT OF PATIENT CARE PER NURSING PROTOCOL Performed By: #### L 501.080 ####[facility] [address] [place], [address] FINGERSTICK GLU 229 mg/dL High [facility]106 [facility] Comment on above: Result Comment: SHELLY GEMENT OF PATIENT CARE PER NURSING PROTOCOL Performed By: #### L 501.080 ####[facility] [address] [place], [address] FINGERSTICK GLU 156 mg/dL High [facility]106 [facility] Comment on above: Result Comment: SHELLY GEMENT OF PATIENT CARE PER NURSING PROTOCOL Performed By: #### L 501.080 ####[facility] [address] [place], [address] CBC W/Diff, Automatedon 07-2 Absolute Lymph 0.21 X10 3/uL Low 0.83-4.51 [facility] Comment on above: Performed By: #### L 100.0100, L500.2500 ####[facility] [address] [place], [address] Absolute Neut 3.5 X10 3/uL Normal 2.0-7.7 [facility] Comment on above: Performed By: #### L 100.0100, L500.2500 ####[facility] [address] [place], [address] Basophils/100 WBC (Bld) 0.8 % Normal 0-1 [facility] Comment on above: Performed By: #### L 100.0100, L500.2500 ####[facility] [address] [place], [address] Eosinophils/100 WBC (Bld) 0.3 % Normal 0-5 [facility] Comment on above: Performed By: #### L 100.0100, L500.2500 ####[facility] [address] [place], [address] Erythrocyte distribution width (RBC) [Ratio] 14.5 % Normal 11.6-14.6 [facility] Comment on above: Performed By: #### L 100.0100, L500.2500 ####[facility] [address] [place], [address] Hematocrit (Bld) [Volume fraction] 32.7 % Low 37-47 [facility] Comment on above: Performed By: #### L 100.0100, L500.2500 ####[facility] [address] [place], [address] Hemoglobin (Bld) [Mass/Vol] 9.7 g/dL Low 12.0-15.0 [facility] Comment on above: Performed By: #### L 100.0100, L500.2500 ####[facility] [address] [place], [address] IG% 0.800 Normal 0.0-0.9 [facility] Comment on above: Result Comment: IG% - Immature Granulocytes (promyelocytes, myelocytes andmetamyelocytes) > 1% indicates that a LEFT SHIFT is Present. Performed By: #### L 100.0100, L500.2500 ####[facility] [address] [place], [address] Lymphocytes/100 WBC (Bld) 5.5 % Low 19-41 [facility] Comment on above: Performed By: #### L 100.0100, L500.2500 ####[facility] [address] [place], [address] MCH (RBC) [Entitic mass] 27.8 pg Normal 27.0-32.0 [facility] Comment on above: Performed By: #### L 100.0100, L500.2500 ####[facility] [address] [place], [address] MCHC (RBC) [Mass/Vol] 29.7 g/dL Low 32-36 [facility] Comment on above: Performed By: #### L 100.0100, L500.2500 ####[facility] [address] [place], [address] MCV (RBC) [Entitic vol] 93.7 fL Normal 81-99 [facility] Comment on above: Performed By: #### L 100.0100, L500.2500 ####[facility] [address] [place], [address] Monocytes/100 WBC (Bld) 2.1 % Normal 0-10 [facility] Comment on above: Performed By: #### L 100.0100, L500.2500 ####[facility] [address] [place], [address] Neutrophils/100 WBC (Bld) 90.5 % High 47-70 [facility] Comment on above: Performed By: #### L 100.0100, L500.2500 ####[facility] [address] [place], [address] Nucleated RBC (Bld) [#/Vol] 0 10*3/uL Normal 0-5 [facility] Comment on above: Performed By: #### L 100.0100, L500.2500 ####[facility] [address] [place], [address] Platelet mean volume (Bld) [Entitic vol] 10.4 fL Normal 6.2-12.0 [facility] Comment on above: Performed By: #### L 100.0100, L500.2500 ####[facility] [address] [place], [address] Platelets (Bld) [#/Vol] 142 10*3/uL Low 150-450 [facility] Comment on above: Performed By: #### L 100.0100, L500.2500 ####[facility] [address] [place], [address] RBC (Bld) [#/Vol] 3.49 10*6/uL Low 4.2-5.4 [facility] Comment on above: Performed By: #### L 100.0100, L500.2500 ####[facility] [address] [place], [address] RDW SD 48.7 fl High 35.1-43.9 [facility] Comment on above: Performed By: #### L 100.0100, L500.2500 ####[facility] [address] [place], [address] WBC (Bld) [#/Vol] 3.8 10*3/uL Low 4.4-11.0 [facility] Comment on above: Performed By: #### L 100.0100, L500.2500 ####[facility] [address] [place], [address] Consultation - Nephrologyon 05-28-2025 Consultation - Nephrology Normal [facility] Consultation - Surgicalon Consultation - Surgical Normal [facility] H AND P Exam - Hospitaliston 05-28-2025 H&P Exam - Hospitalist Normal [facility] Troponin T HS 4 HRon 025 Trop T High Sen Normal <=14 [facility] Comment on above: Result Comment: Heena garcia via OM: Ordered Performed By: #### L 499.0043 ####[facility] [address] [place], [address] 12 Lead EKGon 05-27-2025 12 Lead EKG Normal [facility] Absolute lymphocyte countOrd ered By: Bentley Salazar on 05-27-2025 Lymphocytes Auto (Unsp spec) [#/Vol] 0.80 10*3/uL Low 0.83-4.51 [facility] Anion gap in Serum or Plasma Ordered By: Bentley Salazar on 05-27-2025 Anion gap [Moles/Vol] 10 mmol/L 5- [facility] Automated lymphocyte count a s percentage of total leukocytesOrdered By: Bentley Salazar on 05-27-2025 Lymphocytes/100 WBC Auto (Unsp spec) 16.0 % Low - [facility] BUN/creatinine ratioOrdered By: Bentley Salazar on 05-27-2025 Urea nitrogen/Creatinine [Mass ratio] 13.4 mg/mg 10- [facility] Basic Metabolic Profile (BMP )on 05-27-2025 BUN/CRE 13.4 RATIO Normal - [facility] Comment on above: Performed By: #### L 500.2500, L501.4021 ####[facility] [address] [place], [address] Calcium [Mass/Vol] 8.3 mg/dL Normal 7.6-11.0 [facility] Comment on above: Performed By: #### L 500.2500, L501.4021 ####[facility] [address] [place], [address] Chloride [Moles/Vol] 108 mmol/L Normal 98-108 [facility] Comment on above: Performed By: #### L 500.2500, L501.4021 ####[facility] [address] [place], [address] CO2 [Moles/Vol] 24.1 mmol/L Normal 21.0-32.0 [facility] Comment on above: Performed By: #### L 500.2500, L501.4021 ####[facility] [address] [place], [address] Creatinine [Mass/Vol] 3.91 mg/dL High 0.70-1.20 [facility] Comment on above: Performed By: #### L 500.2500, L501.4021 ####[facility] [address] [place], [address] ECRCL 10.71 ml/min Low 50-250 [facility] Comment on above: Performed By: #### L 500.2500, L501.4021 ####[facility] [address] [place], [address] GAP 10 Normal 5-15 [facility] Comment on above: Performed By: #### L 500.2500, L501.4021 ####[facility] [address] [place], [address] GFR/1.73 sq M.predicted among non-blacks MDRD (S/P/Bld) [Vol rate/Area] 12 mL/min/{1.73_m2} Low >60 [facility] Comment on above: Result Comment: mL/m in/1.73m2 CKD-EPI Creatinine Equation (2020) Performed By: #### L 500.2500, L501.4021 ####[facility] [address] [place], [address] Glucose [Mass/Vol] 109 mg/dL High 70-99 [facility] Comment on above: Performed By: #### L 500.2500, L501.4021 ####[facility] [address] [place], [address] Potassium [Moles/Vol] 5.0 mmol/L Normal 3.3-5.1 [facility] Comment on above: Result Comment: Hemo lysis present, Results??could be affected.?? Performed By: #### L 500.2500, L501.4021 ####[facility] [address] [place], [address] Sodium [Moles/Vol] 142 mmol/L Normal 133-145 [facility] Comment on above: Performed By: #### L 500.2500, L501.4021 ####[facility] [address] [place], [address] Urea nitrogen [Mass/Vol] 53 mg/dL High 4-19 [facility] Comment on above: Performed By: #### L 500.2500, L501.4021 ####[facility] [address] [place], [address] BUN Normal - [facility] Comment on above: Result Comment: This specimen has been REJECTED due to Laboratory criteria:Hemolyzed.RADHA (ED) has been notified of need of recollection.05/27/252109 Brenda Lollo Performed By: #### L 500.2500, L100.0100 ####[facility] [address] [place], [address] BUN/CRE Normal 10-20 [facility] Comment on above: Result Comment: This specimen has been REJECTED due to Laboratory criteria:Hemolyzed.RADHA (ED) has been notified of need of recollection.05/27/252109 Brenda Lollo Performed By: #### L 500.2500, L100.0100 ####[facility] [address] [place], [address] Calcium Normal 7.6-11.0 [facility] Comment on above: Result Comment: This specimen has been REJECTED due to Laboratory criteria:Hemolyzed.RADHA (ED) has been notified of need of recollection.05/27/252109 Brenda Lollo Performed By: #### L 500.2500, L100.0100 ####[facility] [address] [place], [address] CL Normal 98-108 [facility] Comment on above: Result Comment: This specimen has been REJECTED due to Laboratory criteria:Hemolyzed.RADHA (ED) has been notified of need of recollection.05/27/252109 Brenda Lollo Performed By: #### L 500.2500, L100.0100 ####[facility] [address] [place], [address] CO2 Normal 21.0-32.0 [facility] Comment on above: Result Comment: This specimen has been REJECTED due to Laboratory criteria:Hemolyzed.RADHA (ED) has been notified of need of recollection.05/27/252109 Brenda Lollo Performed By: #### L 500.2500, L100.0100 ####[facility] [address] [place], [address] CREAT,SERUM Normal 0.70-1.20 [facility] Comment on above: Result Comment: This specimen has been REJECTED due to Laboratory criteria:Hemolyzed.RADHA (ED) has been notified of need of recollection.05/27/252109 Brenda Lollo Performed By: #### L 500.2500, L100.0100 ####[facility] [address] [place], [address] eGFR Normal >60 [facility] Comment on above: Result Comment: This specimen has been REJECTED due to Laboratory criteria:Hemolyzed.RADHA (ED) has been notified of need of recollection.05/27/252109 Brenda Lollo Performed By: #### L 500.2500, L100.0100 ####[facility] [address] [place], [address] GAP Normal 5-15 [facility] Comment on above: Result Comment: This specimen has been REJECTED due to Laboratory criteria:Hemolyzed.RADHA (ED) has been notified of need of recollection.05/27/252109 Brenda Lollo Performed By: #### L 500.2500, L100.0100 ####[facility] [address] [place], [address] GLU Normal 70-99 [facility] Comment on above: Result Comment: This specimen has been REJECTED due to Laboratory criteria:Hemolyzed.RADHA (ED) has been notified of need of recollection.05/27/252109 Brenda Lollo Performed By: #### L 500.2500, L100.0100 ####[facility] [address] [place], [address] Potassium Normal 3.3-5.1 [facility] Comment on above: Result Comment: This specimen has been REJECTED due to Laboratory criteria:Hemolyzed.RADHA (ED) has been notified of need of recollection.05/27/252109 Brenda Lollo Performed By: #### L 500.2500, L100.0100 ####[facility] [address] [place], [address] Basic Metabolic Profile (BMP) Normal 133-145 [facility] Comment on above: Result Comment: This specimen has been REJECTED due to Laboratory criteria:Hemolyzed.RADHA (ED) has been notified of need of recollection.05/27/252109 Brenda Lollo Performed By: #### L 500.2500, L100.0100 ####[facility] [address] [place], [address] Basophil percentageOrdered B y: Bentley Salazar on 05-27-2025 Basophils/100 WBC (Bld) 0.6 % 0-1 [facility] CBC W/Diff, Automatedon 05-04 Absolute Lymph 0.80 X10 3/uL Low 0.83-4.51 [facility] Comment on above: Performed By: #### L 500.2500, L100.0100 ####[facility] [address] [place], [address] Absolute Neut 3.5 X10 3/uL Normal 2.0-7.7 [facility] Comment on above: Performed By: #### L 500.2500, L100.0100 ####[facility] [address] [place], [address] Basophils/100 WBC (Bld) 0.6 % Normal 0-1 [facility] Comment on above: Performed By: #### L 500.2500, L100.0100 ####[facility] [address] [place], [address] Eosinophils/100 WBC (Bld) 3.4 % Normal 0-5 [facility] Comment on above: Performed By: #### L 500.2500, L100.0100 ####[facility] [address] [place], [address] Erythrocyte distribution width (RBC) [Ratio] 14.6 % Normal 11.6-14.6 [facility] Comment on above: Performed By: #### L 500.2500, L100.0100 ####[facility] [address] [place], [address] Hematocrit (Bld) [Volume fraction] 32.2 % Low 37-47 [facility] Comment on above: Performed By: #### L 500.2500, L100.0100 ####[facility] [address] [place], [address] Hemoglobin (Bld) [Mass/Vol] 9.8 g/dL Low 12.0-15.0 [facility] Comment on above: Performed By: #### L 500.2500, L100.0100 ####[facility] [address] [place], [address] IG% 0.400 Normal 0.0-0.9 [facility] Comment on above: Result Comment: IG% - Immature Granulocytes (promyelocytes, myelocytes andmetamyelocytes) > 1% indicates that a LEFT SHIFT is Present. Performed By: #### L 500.2500, L100.0100 ####[facility] [address] [place], [address] Lymphocytes/100 WBC (Bld) 16.0 % Low 19-41 [facility] Comment on above: Performed By: #### L 500.2500, L100.0100 ####[facility] [address] [place], [address] MCH (RBC) [Entitic mass] 28.2 pg Normal 27.0-32.0 [facility] Comment on above: Performed By: #### L 500.2500, L100.0100 ####[facility] [address] [place], [address] MCHC (RBC) [Mass/Vol] 30.4 g/dL Low 32-36 [facility] Comment on above: Performed By: #### L 500.2500, L100.0100 ####[facility] [address] [place], [address] MCV (RBC) [Entitic vol] 92.8 fL Normal 81-99 [facility] Comment on above: Performed By: #### L 500.2500, L100.0100 ####[facility] [address] [place], [address] Monocytes/100 WBC (Bld) 10.0 % Normal 0-10 [facility] Comment on above: Performed By: #### L 500.2500, L100.0100 ####[facility] [address] [place], [address] Neutrophils/100 WBC (Bld) 69.6 % Normal 47-70 [facility] Comment on above: Performed By: #### L 500.2500, L100.0100 ####[facility] [address] [place], [address] Nucleated RBC (Bld) [#/Vol] 0 10*3/uL Normal 0-5 [facility] Comment on above: Performed By: #### L 500.2500, L100.0100 ####[facility] [address] [place], [address] Platelet mean volume (Bld) [Entitic vol] 11.4 fL Normal 6.2-12.0 [facility] Comment on above: Performed By: #### L 500.2500, L100.0100 ####[facility] [address] [place], [address] Platelets (Bld) [#/Vol] 169 10*3/uL Normal 150-450 [facility] Comment on above: Performed By: #### L 500.2500, L100.0100 ####[facility] [address] [place], [address] RBC (Bld) [#/Vol] 3.47 10*6/uL Low 4.2-5.4 [facility] Comment on above: Performed By: #### L 500.2500, L100.0100 ####[facility] [address] [place], [address] RDW SD 49.4 fl High 35.1-43.9 [facility] Comment on above: Performed By: #### L 500.2500, L100.0100 ####[facility] [address] [place], [address] WBC (Bld) [#/Vol] 5.0 10*3/uL Normal 4.4-11.0 [facility] Comment on above: Performed By: #### L 500.2500, L100.0100 ####[facility] [address] [place], [address] Carbon dioxide, total [Moles /volume] in Central venous bloodOrdered By: Bentley Salazar on 05-27-2025 CO2 [Moles/Vol] 24.1 mmol/L 21.0-32.0 [facility] Chest 1 View (Portable)on Chest 1 View (Portable) Normal [facility] Chloride assayOrdered By: Carrington Salazar on 05-27-2025 Chloride [Moles/Vol] 108 mmol/L 98-108 [facility] Emergency Department Summary on 05-27-2025 Emergency Department Summary Normal [facility] Eosinophil percentageOrdered By: Bentley Salazar on 05-27-2025 Eosinophils/100 WBC (Bld) 3.4 % 0-5 [facility] Erythrocyte distribution wid th ratioOrdered By: Bentley Salazar on 05-27-2025 Erythrocyte distribution width (RBC) [Ratio] 14.6 % 11.6-14.6 [facility] Erythrocyte distribution wid th standard deviationOrdered By: Bentley Salazar on 05-27-2025 Erythrocyte distribution width (RBC) [Ratio] 49.4 fl High 35.1-43.9 [facility] Glomerular filtration rate ( GFR) estimation/1.73 sq m using serum, plasma, or whole bOrdered By: Bentley Salazar on 05-27-2025 GFR/1.73 sq M.predicted among non-blacks MDRD (S/P/Bld) [Vol rate/Area] 12 mL/min/{1.73_m2} Low >60 [facility] Hematocrit Auto (Bld) [Volum e fraction]Ordered By: Bentley Salazar on 05-27-2025 Hematocrit (Bld) [Volume fraction] 32.2 % Low 37-47 [facility] Hemoglobin measurementOrdere d By: Bentley Salazar on 05-27-2025 Hemoglobin (Bld) [Mass/Vol] 9.8 g/dL Low 12.0-15.0 [facility] Immature granulocytes/100 WB C Auto (Bld)Ordered By: Bentley Salazar on 05-27-2025 Immature granulocytes/100 WBC (Bld) 0.400 % 0.0-0.9 [facility] L501.4021on 05-27-2025 Trop T High Sen 135 ng/L Invalid Interpretation Code <=14 [facility] Comment on above: Result Comment: Crit ical Result(s) Called at: 2151 by:??YAZMIN STEIN LSPARR. Results read back by same. Performed By: #### L 500.2500, L501.4021 ####[facility] [address] [place], [address] MCV (mean corpuscular volume ) determinationOrdered By: Bentley Salazar on 05-27-2025 MCV (RBC) [Entitic vol] 92.8 fL 81-99 [facility] Mean corpuscular hemoglobin (MCH) determinationOrdered By: Bentley Salazar on 05-27-2025 MCH (RBC) [Entitic mass] 28.2 pg 27.0-32.0 [facility] Monocyte percentageOrdered B y: Bentley Salazar on 05-27-2025 Monocytes/100 WBC (Bld) 10.0 % 0-10 [facility] Neutrophil percentageOrdered By: Bentley Salazar on 05-27-2025 Neutrophils/100 WBC (Bld) 69.6 % 47-70 [facility] Platelet countOrdered By: Carrington Salazar on 05-27-2025 Platelets (Bld) [#/Vol] 169 10*3/uL 150-450 [facility] Potassium measurement (mass/ volume)Ordered By: Bentley Salazar on 05-27-2025 Potassium (Unsp spec) [Mass/Vol] 5.0 mmol/L 3.3-5.1 [facility] RBC Auto (Bld) [#/Vol]Ordere d By: Bentley Salazar on 05-27-2025 RBC (Bld) [#/Vol] 3.47 10*6/uL Low 4.2-5.4 [facility] Serum creatinine measurement (mass/volume)Ordered By: Bentley Salazar on 05-27-2025 Creatinine [Mass/Vol] 3.91 mg/dL High 0.70-1.20 [facility] Serum glucose measurement (m ass/volume)Ordered By: Bentley Salazar on 05-27-2025 Glucose [Mass/Vol] 109 mg/dL High 70-99 [facility] Serum or plasma calcium lesly urement (mass/volume)Ordered By: Bentley Salazar on 05-27-2025 Calcium [Mass/Vol] 8.3 mg/dL 7.6-11.0 [facility] Serum or plasma urea nitroge n measurement (mass/volume)Ordered By: Bentley Salazar on 05-27-2025 Urea nitrogen [Mass/Vol] 53 mg/dL High 4-19 [facility] Sodium levelOrdered By: Kevin Salazar on 05-27-2025 Sodium [Moles/Vol] 142 mmol/L 133-145 [facility] Troponin T HS 2 HRon 025 Trop T High Sen 133 ng/L Invalid Interpretation Code <=14 [facility] Comment on above: Result Comment: Crit ical Result(s) Called at 2349: by:??NBURNS TO ESMARTResults read back by same. Performed By: #### L 499.0042 ####[facility] [address] [place], [place], [id number] Troponin T.cardiac [Mass/vol ume] in Serum or Plasma by High sensitivity methodOrdered By: Bentley Salazar on 05-27-2025 Troponin T.cardiac High sensitivity method [Mass/Vol] 133 ng/L High <14 [facility] Troponin T.cardiac High sensitivity method [Mass/Vol] 135 ng/L High <14 [facility] White blood cell (WBC) count Ordered By: Bentley Salazar on 05-27-2025 WBC (Bld) [#/Vol] 5.0 10*3/uL 4.4-11.0 [facility] Anion gap in Serum or Plasma Ordered By: Shivani Mcrae on 05-20-2025 Anion gap [Moles/Vol] 10 mmol/L 5-15 [facility] BUN/creatinine ratioOrdered By: Shivani Mcrae on 05-20-2025 Urea nitrogen/Creatinine [Mass ratio] 8.6 mg/mg Low 10-20 [facility] Basic Metabolic Profile (BMP )on 05-20-2025 BUN/CRE 8.6 RATIO Low - [facility] Comment on above: Performed By: #### L 500.2500 ####[facility] [address] [place], [place], [id number] Calcium [Mass/Vol] 7.9 mg/dL Normal 7.6-11.0 [facility] Comment on above: Performed By: #### L 500.2500 ####[facility] [address] [place], [address] Chloride [Moles/Vol] 100 mmol/L Normal 98-108 [facility] Comment on above: Performed By: #### L 500.2500 ####[facility] [address] [place], [address] CO2 [Moles/Vol] 27.7 mmol/L Normal 21.0-32.0 [facility] Comment on above: Performed By: #### L 500.2500 ####[facility] [address] [place], [address] Creatinine [Mass/Vol] 2.33 mg/dL High 0.70-1.20 [facility] Comment on above: Performed By: #### L 500.2500 ####[facility] [address] [place], [address] ECRCL 19.11 ml/min Low 50-250 [facility] Comment on above: Performed By: #### L 500.2500 ####[facility] [address] [place], [address] GAP 10 Normal 5-15 [facility] Comment on above: Performed By: #### L 500.2500 ####[facility] [address] [place], [address] GFR/1.73 sq M.predicted among non-blacks MDRD (S/P/Bld) [Vol rate/Area] 23 mL/min/{1.73_m2} Low >60 [facility] Comment on above: Result Comment: mL/m in/1.73m2 CKD-EPI Creatinine Equation (2020) Performed By: #### L 500.2500 ####[facility] [address] [place], [address] Glucose [Mass/Vol] 164 mg/dL High 70-99 [facility] Comment on above: Performed By: #### L 500.2500 ####[facility] [address] [place], [address] Potassium [Moles/Vol] 3.2 mmol/L Low 3.3-5.1 [facility] Comment on above: Result Comment: Hemo lysis present, Results??could be affected.?? Performed By: #### L 500.2500 ####[facility] [address] [place], [address] Sodium [Moles/Vol] 138 mmol/L Normal 133-145 [facility] Comment on above: Performed By: #### L 500.2500 ####[facility] [address] [place], [address] Urea nitrogen [Mass/Vol] 20 mg/dL High 4-19 [facility] Comment on above: Performed By: #### L 500.2500 ####[facility] [address] [place], [address] Carbon dioxide, total [Moles /volume] in Central venous bloodOrdered By: Shivani Mcrae on 05-20-2025 CO2 [Moles/Vol] 27.7 mmol/L 21.0-32.0 [facility] Chloride assayOrdered By: Wesley Mcrae on 05-20-2025 Chloride [Moles/Vol] 100 mmol/L 98-108 [facility] Emergency Department Summary on 05-20-2025 Emergency Department Summary Normal [facility] Glomerular filtration rate ( GFR) estimation/1.73 sq m using serum, plasma, or whole bOrdered By: Shivani Mcrae on 05-20-2025 GFR/1.73 sq M.predicted among non-blacks MDRD (S/P/Bld) [Vol rate/Area] 23 mL/min/{1.73_m2} Low >60 [facility] Comment on above: mL/min/1.73m2 CKD-EP I Creatinine Equation (2020) Potassium measurement (mass/ volume)Ordered By: Shivani Mcrae on 05-20-2025 Potassium (Unsp spec) [Mass/Vol] 3.2 mmol/L Low 3.3-5.1 [facility] Comment on above: Hemolysis present, R esults could be affected. Serum creatinine measurement (mass/volume)Ordered By: Shivani Mcrae on 05-20-2025 Creatinine [Mass/Vol] 2.33 mg/dL High 0.70-1.20 [facility] Serum glucose measurement (m ass/volume)Ordered By: Shivani Mcrae on 05-20-2025 Glucose [Mass/Vol] 164 mg/dL High 70-99 [facility] Serum or plasma calcium lesly urement (mass/volume)Ordered By: Shivani Mcrae on 05-20-2025 Calcium [Mass/Vol] 7.9 mg/dL 7.6-11.0 [facility] Serum or plasma urea nitroge n measurement (mass/volume)Ordered By: Shivani Mcrae on 05-20-2025 Urea nitrogen [Mass/Vol] 20 mg/dL High 4-19 [facility] Sodium levelOrdered By: Juan Mcrae on 05-20-2025 Sodium [Moles/Vol] 138 mmol/L 133-145 [facility] Pulmonary Visit Reporton Pulmonary Visit Report Normal [facility] Abdomen/Pelvis W IV Cont ONL Yon 05-08-2025 Abdomen/Pelvis W IV Cont ONLY Normal [facility] Absolute lymphocyte countOrd ered By: Justin Parisi on 05-08-2025 Lymphocytes Auto (Unsp spec) [#/Vol] 1.62 10*3/uL 0.83-4.51 [facility] Absolute neutrophil countOrd ered By: Justin Parisi on 05-08-2025 Neutrophils (Bld) [#/Vol] 2.9 10*3/uL 2.0-7.7 [facility] Anion gap in Serum or Plasma Ordered By: Justin Parisi on 05-08-2025 Anion gap [Moles/Vol] 11 mmol/L 5-15 [facility] Automated lymphocyte count a s percentage of total leukocytesOrdered By: Justin Parisi on 05-08-2025 Lymphocytes/100 WBC Auto (Unsp spec) 27.5 % 19-41 [facility] BUN/creatinine ratioOrdered By: Justinmarine Parisi on 05-08-2025 Urea nitrogen/Creatinine [Mass ratio] 8.8 mg/mg Low 10-20 [facility] Basophil percentageOrdered B y: Justin Isak on 05-08-2025 Basophils/100 WBC (Bld) 0.8 % 0-1 [facility] Beta-Hydroxbytyrateon 2024 BETA-HYDROXYBUT 0.4 mmol/L High 0.0-0.3 [facility] Comment on above: Performed By: #### L 501.6901 ####[facility] [address] [place], [place], [id number] Beta-hydroxybutyrateOrdered By: [place] Isak on 05-08-2025 Beta hydroxybutyrate [Mass/Vol] 0.4 mmol/L High 0.0-0.3 [facility] Bilirubin Test strip Ql (U)O rdered By: Justinmarine CamposEugenio on 05-08-2025 Bilirubin Ql (U) Negative Negative [facility] Bilirubin, totalOrdered By: Justinmarine Parisi on 05-08-2025 Bilirubin [Mass/Vol] 0.30 mg/dL 0.00-1.30 [facility] CBC W/Diff, Automatedon 07 Absolute Lymph 1.62 X10 3/uL Normal 0.83-4.51 [facility] Comment on above: Performed By: #### L 501.5200, L100.0100, L501.2450, L500.4050 ####[facility] [address] [place], [place], [id number]) Absolute Neut 2.9 X10 3/uL Normal 2.0-7.7 [facility] Comment on above: Performed By: #### L 501.5200, L100.0100, L501.2450, L500.4050 ####[facility] [address] [place], [address] Basophils/100 WBC (Bld) 0.8 % Normal 0-1 [facility] Comment on above: Performed By: #### L 501.5200, L100.0100, L501.2450, L500.4050 ####[facility] [address] [place], [address] Eosinophils/100 WBC (Bld) 15.1 % High 0-5 [facility] Comment on above: Performed By: #### L 501.5200, L100.0100, L501.2450, L500.4050 ####[facility] [address] [place], [address] Erythrocyte distribution width (RBC) [Ratio] 13.8 % Normal 11.6-14.6 [facility] Comment on above: Performed By: #### L 501.5200, L100.0100, L501.2450, L500.4050 ####[facility] [address] [place], [address] Hematocrit (Bld) [Volume fraction] 37.2 % Normal 37-47 [facility] Comment on above: Performed By: #### L 501.5200, L100.0100, L501.2450, L500.4050 ####[facility] [address] [place], [address] Hemoglobin (Bld) [Mass/Vol] 11.2 g/dL Low 12.0-15.0 [facility] Comment on above: Performed By: #### L 501.5200, L100.0100, L501.2450, L500.4050 ####[facility] [address] [place], [address] IG% 0.200 Normal 0.0-0.9 [facility] Comment on above: Result Comment: IG% - Immature Granulocytes (promyelocytes, myelocytes andmetamyelocytes) > 1% indicates that a LEFT SHIFT is Present. Performed By: #### L 501.5200, L100.0100, L501.2450, L500.4050 ####[facility] [address] [place], [address] Lymphocytes/100 WBC (Bld) 27.5 % Normal 19-41 [facility] Comment on above: Performed By: #### L 501.5200, L100.0100, L501.2450, L500.4050 ####[facility] [address] [place], [address] MCH (RBC) [Entitic mass] 28.1 pg Normal 27.0-32.0 [facility] Comment on above: Performed By: #### L 501.5200, L100.0100, L501.2450, L500.4050 ####[facility] [address] [place], [address] MCHC (RBC) [Mass/Vol] 30.1 g/dL Low 32-36 [facility] Comment on above: Performed By: #### L 501.5200, L100.0100, L501.2450, L500.4050 ####[facility] [address] [place], [address] MCV (RBC) [Entitic vol] 93.2 fL Normal 81-99 [facility] Comment on above: Performed By: #### L 501.5200, L100.0100, L501.2450, L500.4050 ####[facility] [address] [place], [address] Monocytes/100 WBC (Bld) 7.1 % Normal 0-10 [facility] Comment on above: Performed By: #### L 501.5200, L100.0100, L501.2450, L500.4050 ####[facility] [address] [place], [address] Neutrophils/100 WBC (Bld) 49.3 % Normal 47-70 [facility] Comment on above: Performed By: #### L 501.5200, L100.0100, L501.2450, L500.4050 ####[facility] [address] [place], [address] Nucleated RBC (Bld) [#/Vol] 0 10*3/uL Normal 0-5 [facility] Comment on above: Performed By: #### L 501.5200, L100.0100, L501.2450, L500.4050 ####[facility] [address] [place], [address] Platelet mean volume (Bld) [Entitic vol] 9.9 fL Normal 6.2-12.0 [facility] Comment on above: Performed By: #### L 501.5200, L100.0100, L501.2450, L500.4050 ####[facility] [address] [place], [address] Platelets (Bld) [#/Vol] 154 10*3/uL Normal 150-450 [facility] Comment on above: Performed By: #### L 501.5200, L100.0100, L501.2450, L500.4050 ####[facility] [address] [place], [address] RBC (Bld) [#/Vol] 3.99 10*6/uL Low 4.2-5.4 [facility] Comment on above: Performed By: #### L 501.5200, L100.0100, L501.2450, L500.4050 ####[facility] [address] [place], [address] RDW SD 47.4 fl High 35.1-43.9 [facility] Comment on above: Performed By: #### L 501.5200, L100.0100, L501.2450, L500.4050 ####[facility] [address] [place], [address] WBC (Bld) [#/Vol] 5.9 10*3/uL Normal 4.4-11.0 [facility] Comment on above: Performed By: #### L 501.5200, L100.0100, L501.2450, L500.4050 ####[facility] [address] [place], [address] CO2 (BldV) [Moles/Vol]Ordere d By: Justin Parisi on 05-08-2025 CO2 [Moles/Vol] 37 mmol/L High 23-33 [facility] Carbon dioxide, total [Moles /volume] in Central venous bloodOrdered By: Justin Parisi on 05-08-2025 CO2 [Moles/Vol] 28.6 mmol/L 21.0-32.0 [facility] Chest PA and Lateralon 05-08 Chest PA and Lateral Normal [facility] Chloride assayOrdered By: Kwadwo Parisi on 05-08-2025 Chloride [Moles/Vol] 102 mmol/L 98-108 [facility] Comprehensive Metabolic Prof ilon 05-08-2025 Albumin [Mass/Vol] 3.6 g/dL Normal 3.4-4.8 [facility] Comment on above: Performed By: #### L 501.5200, L100.0100, L501.2450, L500.4050 ####[facility] [address] [place], [address] Albumin/Globulin [Mass ratio] 1.3 {ratio} Normal 0.9-2.4 [facility] Comment on above: Performed By: #### L 501.5200, L100.0100, L501.2450, L500.4050 ####[facility] [address] [place], [address] ALK PHOS 63 U/L Normal 35-104 [facility] Comment on above: Performed By: #### L 501.5200, L100.0100, L501.2450, L500.4050 ####[facility] [address] [place], [address] ALT [Catalytic activity/Vol] 9 U/L Normal <=34 [facility] Comment on above: Performed By: #### L 501.5200, L100.0100, L501.2450, L500.4050 ####[facility] [address] [place], [address] AST [Catalytic activity/Vol] 22 U/L Normal <=31 [facility] Comment on above: Result Comment: Hemo lysis present, Results??could be affected.?? Performed By: #### L 501.5200, L100.0100, L501.2450, L500.4050 ####[facility] [address] [place], [address] Bilirubin [Mass/Vol] 0.30 mg/dL Normal 0.00-1.30 [facility] Comment on above: Performed By: #### L 501.5200, L100.0100, L501.2450, L500.4050 ####[facility] [address] [place], [address] BUN/CRE 8.8 RATIO Low 10-20 [facility] Comment on above: Performed By: #### L 501.5200, L100.0100, L501.2450, L500.4050 ####[facility] [address] [place], [address] Calcium [Mass/Vol] 8.3 mg/dL Normal 7.6-11.0 [facility] Comment on above: Performed By: #### L 501.5200, L100.0100, L501.2450, L500.4050 ####[facility] [address] [place], [address] Chloride [Moles/Vol] 102 mmol/L Normal 98-108 [facility] Comment on above: Performed By: #### L 501.5200, L100.0100, L501.2450, L500.4050 ####[facility] [address] [place], [address] CO2 [Moles/Vol] 28.6 mmol/L Normal 21.0-32.0 [facility] Comment on above: Performed By: #### L 501.5200, L100.0100, L501.2450, L500.4050 ####[facility] [address] [place], [address] Creatinine [Mass/Vol] 3.92 mg/dL High 0.70-1.20 [facility] Comment on above: Performed By: #### L 501.5200, L100.0100, L501.2450, L500.4050 ####[facility] [address] [place], [address] ECRCL 10.39 ml/min Low 50-250 [facility] Comment on above: Performed By: #### L 501.5200, L100.0100, L501.2450, L500.4050 ####[facility] [address] [place], [address] GAP 11 Normal 5-15 [facility] Comment on above: Performed By: #### L 501.5200, L100.0100, L501.2450, L500.4050 ####[facility] [address] [place], [address] GFR/1.73 sq M.predicted among non-blacks MDRD (S/P/Bld) [Vol rate/Area] 12 mL/min/{1.73_m2} Low >60 [facility] Comment on above: Result Comment: mL/m in/1.73m2 CKD-EPI Creatinine Equation (2020) Performed By: #### L 501.5200, L100.0100, L501.2450, L500.4050 ####[facility] [address] [place], [address] Globulin (S) [Mass/Vol] 2.7 g/dL Normal 2.2-4.2 [facility] Comment on above: Performed By: #### L 501.5200, L100.0100, L501.2450, L500.4050 ####[facility] [address] [place], [address] Glucose [Mass/Vol] 113 mg/dL High 70-99 [facility] Comment on above: Performed By: #### L 501.5200, L100.0100, L501.2450, L500.4050 ####[facility] [address] [place], [address] Potassium [Moles/Vol] 3.4 mmol/L Normal 3.3-5.1 [facility] Comment on above: Result Comment: Hemo lysis present, Results??could be affected.?? Performed By: #### L 501.5200, L100.0100, L501.2450, L500.4050 ####[facility] [address] [place], [address] Sodium [Moles/Vol] 141 mmol/L Normal 133-145 [facility] Comment on above: Performed By: #### L 501.5200, L100.0100, L501.2450, L500.4050 ####[facility] [address] [place], [address] T PROT 6.2 g/dL Normal 5.9-8.4 [facility] Comment on above: Performed By: #### L 501.5200, L100.0100, L501.2450, L500.4050 ####[facility] [address] [place], [place], [address] Urea nitrogen [Mass/Vol] 34 mg/dL High 4-19 [facility] Comment on above: Performed By: #### L 501.5200, L100.0100, L501.2450, L500.4050 ####[facility] [address] [place], [place], [address] Emergency Department Summary on 05-08-2025 Emergency Department Summary Normal [facility] Eosinophil percentageOrdered By: Justin Parisi on 05-08-2025 Eosinophils/100 WBC (Bld) 15.1 % High 0-5 [facility] Erythrocyte distribution wid th ratioOrdered By: [facility] on 05-[facility]-2025 Erythrocyte distribution width (RBC) [Ratio] 13.8 % 11.6-14.6 [facility] Erythrocyte distribution wid th standard deviationOrdered By: [facility] Becker on 05-08-2025 Erythrocyte distribution width (RBC) [Ratio] 47.4 fl High 35.1-43.9 [facility] Glomerular filtration rate ( GFR) estimation/1.73 sq m using serum, plasma, or whole bOrdered By: Justinmarine Parisi on 05-08-2025 GFR/1.73 sq M.predicted among non-blacks MDRD (S/P/Bld) [Vol rate/Area] 12 mL/min/{1.73_m2} Low >60 [facility] Comment on above: mL/min/1.73m2 CKD-EP I Creatinine Equation (2020) Hematocrit Auto (Bld) [Volum e fraction]Ordered By: Justin Parisi on 05-08-2025 Hematocrit (Bld) [Volume fraction] 37.2 % 37-47 [facility] Hemoglobin measurementOrdere d By: Justin Parisi on 05-08-2025 Hemoglobin (Bld) [Mass/Vol] 11.2 g/dL Low 12.0-15.0 [facility] Immature granulocytes/100 WB C Auto (Bld)Ordered By: Justin Parisi on 05-08-2025 Immature granulocytes/100 WBC (Bld) 0.200 % 0.0-0.9 [facility] Comment on above: IG% - Immature Granu locytes (promyelocytes, myelocytes and metamyelocytes) > 1% indicates that a LEFT SHIFT is Present. Ketones Test strip Ql (U)Ord ered By: Justin Parisi on 05-08-2025 Ketones Ql (U) Negative Negative [facility] Laboratory - Chemistry and C hemistry - challengeOrdered By: Justin Parisi on 05-08-2025 AST [Catalytic activity/Vol] 22 U/L <32 [facility] Comment on above: Hemolysis present, R esults could be affected. Lipaseon 05-08-2025 Lipase [Catalytic activity/Vol] 12 U/L Low 13-75 [facility] Comment on above: Result Comment: Plefrank adhikari note:LIPASE revised reference range effective 23.New Lipase methodology. Expected to produce lower valuesthan the previous assay method.NEW Reference Range: 13 - 75 U/L Performed By: #### L 501.5200, L100.0100, L501.2450, L500.4050 ####[facility] [address] [place], [address] Lipase measurementOrdered By : Justin Parisi on 05-08-2025 Lipase [Catalytic activity/Vol] 12 U/L Low 13-75 [facility] Comment on above: Please note:LIPASE r evised reference range effective 23. New Lipase methodology. Expected to produce lower values than the previous assay method. NEW Reference Range: 13 - 75 U/L MCV (mean corpuscular volume ) determinationOrdered By: Justin Parisi on 05-08-2025 MCV (RBC) [Entitic vol] 93.2 fL 81-99 [facility] Magnesiumon 05-08-2025 Magnesium [Mass/Vol] 2.1 mg/dL Normal 1.5-2.2 [facility] Comment on above: Performed By: #### L 501.5200, L100.0100, L501.2450, L500.4050 ####[facility] [address] [place], [address] Magnesium measurement (mass/ volume)Ordered By: Justin Parisi on 05-08-2025 Magnesium (Unsp spec) [Mass/Vol] 2.1 mg/dL 1.5-2.2 [facility] Mean corpuscular hemoglobin (MCH) determinationOrdered By: [facility] on 05-08-2025 MCH (RBC) [Entitic mass] 28.1 pg 27.0-32.0 [facility] Mean corpuscular hemoglobin concentration (MCHC) determinationOrdered By: [facility] on 05-08-2025 MCHC (RBC) [Mass/Vol] 30.1 g/dL Low 32-36 [facility] Mean platelet volume determi nationOrdered By: [facility] on 05-08-2025 Platelet mean volume (Bld) [Entitic vol] 9.9 fL 6.2-12.0 [facility] Microscopic analysis of urin e for red blood cells (RBC)Ordered By: Justin Parisi on 05-08-2025 Microscopic analysis of urine for red blood cells (RBC) 0 SEEN /hpf 0-5 [facility] Monocyte percentageOrdered B y: Justin Parisi on 05-08-2025 Monocytes/100 WBC (Bld) 7.1 % 0-10 [facility] Mucus LM Ql (Urine sed)Order ed By: [facility] on 05-08-2025 Mucus Ql (Urine sed) 0 SEEN /hpf [facility] Neutrophil percentageOrdered By: [place] Isak on 05-08-2025 Neutrophils/100 WBC (Bld) 49.3 % 47-70 [facility] Nitrite Test strip Ql (U)Ord ered By: Justin Parisi on 05-08-2025 Nitrite Ql (U) Negative Negative [facility] No Panel InformationOrdered By: Justin Parisi on 05-08-2025 Blood Gas Sample Site Not entered [facility] Blood Gas Specimen Type ROHIT [facility] Oxygen Delivery Device Not entered [facility] ROHIT [facility] Not entered [facility] 22 U/L <32 [facility] Nucleated red blood cell per centageOrdered By: Justin Parisi on 05-08-2025 Nucleated RBC/100 WBC (Bld) [Ratio] 0 % 0-5 [facility] Platelet countOrdered By: Kwadwo Parisi on 05-08-2025 Platelets (Bld) [#/Vol] 154 10*3/uL 150-450 [facility] Potassium measurement (mass/ volume)Ordered By: Justin Parisi on 05-08-2025 Potassium (Unsp spec) [Mass/Vol] 3.4 mmol/L 3.3-5.1 [facility] Comment on above: Hemolysis present, R esults could be affected. Protein Test strip Ql (U)Ord ered By: Justin Parisi on 05-08-2025 Protein Ql (U) 500 mg/dl High Negative [facility] RBC Auto (Bld) [#/Vol]Ordere d By: Justin Parisi on 05-08-2025 RBC (Bld) [#/Vol] 3.99 10*6/uL Low 4.2-5.4 [facility] Serum creatinine measurement (mass/volume)Ordered By: Justin Parisi on 05-08-2025 Creatinine [Mass/Vol] 3.92 mg/dL High 0.70-1.20 [facility] Serum globulin measurementOr dered By: Justin Parisi on 05-08-2025 Globulin (S) [Mass/Vol] 2.7 g/dL 2.2-4.2 [facility] Serum glucose measurement (m ass/volume)Ordered By: Justin Parisi on 05-08-2025 Glucose [Mass/Vol] 113 mg/dL High 70-99 [facility] Serum or plasma alanine martinez otransferase (ALT) measurementOrdered By: Justin Parisi on 05-08-2025 ALT [Catalytic activity/Vol] 9 U/L <35 [facility] Serum or plasma albumin lesly urement (mass/volume)Ordered By: Justin Becker on 05-08-2025 Albumin [Mass/Vol] 3.6 g/dL 3.4-4.8 [facility] Serum or plasma albumin/glob ulin mass ratioOrdered By: Justin Parisi on 05-08-2025 Albumin/Globulin [Mass ratio] 1.3 {ratio} 0.9-2.4 [facility] Serum or plasma alkaline william sphatase measurementOrdered By: Justin Parisi on 05-08-2025 ALP [Catalytic activity/Vol] 63 U/L 35-104 [facility] Serum or plasma calcium lesly urement (mass/volume)Ordered By: Justin Becker on 05-08-2025 Calcium [Mass/Vol] 8.3 mg/dL 7.6-11.0 [facility] Serum or plasma urea nitroge n measurement (mass/volume)Ordered By: Justin Parisi on 05-08-2025 Urea nitrogen [Mass/Vol] 34 mg/dL High 4-19 [facility] Sodium levelOrdered By: Chetan Parisi on 05-08-2025 Sodium [Moles/Vol] 141 mmol/L 133-145 [facility] Squamous epithelial cells de tection in urine sediment by light microscopyOrdered By: Justin Parisi on 05-08-2025 Epithelial cells.squamous LM Ql (Urine sed) 0-5 SEEN /hpf 5-10 [facility] Total proteinOrdered By: Vega Parisi on 05-08-2025 Protein [Mass/Vol] 6.2 g/dL 5.9-8.4 [facility] Urinalysis, Completeon 05-08 EPI,SQUAMOUS 0-5 SEEN Normal 5-10 [facility] Comment on above: Order Comment: BONNIE TER SPECIMEN Performed By: #### L 400.0001 ####[facility] [address] [place], [address] BACTERIA 0 SEEN Normal None Seen [facility] Comment on above: Order Comment: OBNNIE TER SPECIMEN Performed By: #### L 400.0001 ####[facility] [address] [place], [address] Mucus Ql (Urine sed) 0 SEEN Normal [facility] Comment on above: Order Comment: BONNIE TER SPECIMEN Performed By: #### L 400.0001 ####[facility] [address] [place], [address] RBC 0 SEEN Normal 0-5 [facility] Comment on above: Order Comment: BONNIE TER SPECIMEN Performed By: #### L 400.0001 ####[facility] [address] [place], [address] WBC 0 SEEN Normal 0-5 [facility] Comment on above: Order Comment: BONNIE TER SPECIMEN Performed By: #### L 400.0001 ####[facility] [address] [place], [address] Urine clarityOrdered By: Vega Parisi on 05-08-2025 Clarity (U) Clear Clear [facility] Urine color determinationOrd ered By: Justin Parisi on 05-08-2025 Color (U) Yellow Yellow [facility] Urine glucose detectionOrder ed By: Justin Parisi on 05-08-2025 Glucose Ql (U) 50 mg/dl High Normal [facility] Urine leukocyte esterase det ection by dipstickOrdered By: Justin Parisi on 05-08-2025 Leukocyte esterase Test strip Ql (U) Negative Negative [facility] Urine pHOrdered By: Justin Parekh on 05-08-2025 pH (U) 6.0 [pH] 5.0 - 8.0 [facility] Urine sediment bacteria coun t by microscopy (number/high power field)Ordered By: Justin Parisi on 05-08-2025 Bacteria LM.HPF (Urine sed) [#/Area] 0 /[HPF] None Seen [facility] Urine specific gravity measu rementOrdered By: Justin Parisi on 05-08-2025 Specific gravity (U) [Rel density] 1.020 1.002-1.030 [facility] Urine urobilinogen measureme ntOrdered By: Justin Parisi on 05-08-2025 Urobilinogen Ql (U) Normal mg/dl Normal [facility] Venous Blood Gason 5 Blood Gas Type ROHIT Normal [facility] Comment on above: Performed By: #### L 9000.0810 ####[facility] [address] [place], [address] CO2 [Moles/Vol] 37 mmol/L High 23-33 [facility] Comment on above: Performed By: #### L 9000.0810 ####[facility] [address] [place], [address] FI02 2.0 [facility] Comment on above: Performed By: #### L 9000.0810 ####[facility] [address] [place], [address] HCO3 (Bld) [Moles/Vol] 35 mmol/L High 22-26 [facility] Comment on above: Performed By: #### L 9000.0810 ####[facility] [address] [place], [address] O2 Delivery Dev Not entered [facility] Comment on above: Performed By: #### L 9000.0810 ####[facility] [address] [place], [address] SITE Not entered [facility] Comment on above: Performed By: #### L 9000.0810 ####[facility] [address] [place], [address] VBG BE 8 mmol/L High -1.0-3.5 [facility] Comment on above: Performed By: #### L 9000.0810 ####[facility] [address] [place], [address] VBG pCO2 67.0 mmHg High 41-51 [facility] Comment on above: Performed By: #### L 9000.0810 ####[facility] [address] [place], [address] VBG pH 7.32 Normal 7.32-7.42 [facility] Comment on above: Performed By: #### L 9000.0810 ####[facility] [address] [place], [address] VBG PO2 27 mmHg Normal 25-40 [facility] Comment on above: Performed By: #### L 9000.0810 ####[facility] [address] [place], [address] VBG SO2 44 Low 50-70 [facility] Comment on above: Performed By: #### L 9000.0810 ####[facility] [address] [place], [address] Venous blood base excess allyn surementOrdered By: Justin Parisi on 05-08-2025 Base excess Calc (BldV) [Moles/Vol] 8 mmol/L High -1.0-3.5 [facility] Venous blood bicarbonate allyn surementOrdered By: Justin aPrisi on 05-08-2025 HCO3 (Bld) [Moles/Vol] 35 mmol/L High 22-26 [facility] Venous blood oxygen saturati on measurementOrdered By: Justin Parisi on 05-08-2025 Oxygen saturation in Blood 44 % Low 50-70 [facility] Venous blood pH measurementO rdered By: Justin Parisi on 05-08-2025 pH (BldV) 7.32 [pH] 7.32-7.42 [facility] Venous blood partial pressur e of carbon dioxide measurementOrdered By: Justin Parisi on 05-08-2025 CO2 (BldV) [Partial pressure] 67.0 mm[Hg] High 41-51 [facility] Venous blood partial pressur e of oxygen measurementOrdered By: Justin Becker on 05-08-2025 Oxygen (BldV) [Partial pressure] 27 mm[Hg] 25-40 [facility] White blood cell (WBC) count Ordered By: [facility] on 05-08-2025 WBC (Bld) [#/Vol] 5.9 10*3/uL 4.4-11.0 [facility] White blood cell countOrdere d By: [place] Isak on 05-08-2025 White blood cell count 0 SEEN /hpf 0-5 [facility] Potassiumon 04-11-2025 Potassium [Moles/Vol] 3.7 mmol/L Normal 3.3-5.1 [facility] Comment on above: Performed By: #### L 501.5600 ####[facility] [address] [place], [place], [id number] Potassium measurement (mass/ volume)Ordered By: Christy Huerta on 04-11-2025 Potassium (Unsp spec) [Mass/Vol] 3.7 mmol/L 3.3-5.1 [facility] 12 Lead EKGon 04-09-2025 12 Lead EKG Normal [facility] Anion gap in Serum or Plasma Ordered By: Milind Heath on 04-09-2025 Anion gap [Moles/Vol] 8 mmol/L 5-15 [facility] BUN/creatinine ratioOrdered By: Milind Heath on 04-09-2025 Urea nitrogen/Creatinine [Mass ratio] 5.6 mg/mg Low 10-20 [facility] Basic Metabolic Profile (BMP )on 04-09-2025 BUN/CRE 5.6 RATIO Low 10-20 [facility] Comment on above: Performed By: #### L 500.2500, L501.5200 ####[facility] [address] [place], [address] Calcium [Mass/Vol] 9.2 mg/dL Normal 7.6-11.0 [facility] Comment on above: Performed By: #### L 500.2500, L501.5200 ####[facility] [address] [place], [address] Chloride [Moles/Vol] 102 mmol/L Normal 98-108 [facility] Comment on above: Performed By: #### L 500.2500, L501.5200 ####[facility] [address] [place], [address] CO2 [Moles/Vol] 31.4 mmol/L Normal 21.0-32.0 [facility] Comment on above: Performed By: #### L 500.2500, L501.5200 ####[facility] [address] [place], [address] Creatinine [Mass/Vol] 3.39 mg/dL High 0.70-1.20 [facility] Comment on above: Performed By: #### L 500.2500, L501.5200 ####[facility] [address] [place], [address] GAP 8 Normal 5-15 [facility] Comment on above: Performed By: #### L 500.2500, L501.5200 ####[facility] [address] [place], [address] GFR/1.73 sq M.predicted among non-blacks MDRD (S/P/Bld) [Vol rate/Area] 14 mL/min/{1.73_m2} Low >60 [facility] Comment on above: Result Comment: mL/m in/1.73m2 CKD-EPI Creatinine Equation (2020) Performed By: #### L 500.2500, L501.5200 ####[facility] [address] [place], [address] Glucose [Mass/Vol] 151 mg/dL High 70-99 [facility] Comment on above: Performed By: #### L 500.2500, L501.5200 ####[facility] [address] [place], [address] Potassium [Moles/Vol] 2.8 mmol/L Low 3.3-5.1 [facility] Comment on above: Result Comment: Hemo lysis present, Results??could be affected.?? Performed By: #### L 500.2500, L501.5200 ####[facility] [address] [place], [address] Sodium [Moles/Vol] 142 mmol/L Normal 133-145 [facility] Comment on above: Performed By: #### L 500.2500, L501.5200 ####[facility] [address] [place], [address] Urea nitrogen [Mass/Vol] 19 mg/dL Normal 4-19 [facility] Comment on above: Performed By: #### L 500.2500, L501.5200 ####[facility] [address] [place], [address] Carbon dioxide, total [Moles /volume] in Central venous bloodOrdered By: Milind Heath on 04-09-2025 CO2 [Moles/Vol] 31.4 mmol/L 21.0-32.0 [facility] Chloride assayOrdered By: Britton Heath on 04-09-2025 Chloride [Moles/Vol] 102 mmol/L 98-108 [facility] Emergency Department Summary on 04-09-2025 Emergency Department Summary Normal [facility] Glomerular filtration rate ( GFR) estimation/1.73 sq m using serum, plasma, or whole bOrdered By: Milind Heath on 04-09-2025 GFR/1.73 sq M.predicted among non-blacks MDRD (S/P/Bld) [Vol rate/Area] 14 mL/min/{1.73_m2} Low >60 [facility] Comment on above: mL/min/1.73m2 CKD-EP I Creatinine Equation (2020) Magnesiumon 04-09-2025 Magnesium [Mass/Vol] 2.2 mg/dL Normal 1.5-2.2 [facility] Comment on above: Performed By: #### L 500.2500, L501.5200 ####[facility] [address] [place], [place], [address] Magnesium measurement (mass/ volume)Ordered By: [facility] on 04-09-2025 Magnesium (Unsp spec) [Mass/Vol] 2.2 mg/dL 1.5-2.2 [facility] Potassiumon 04-09-2025 Potassium [Moles/Vol] 2.3 mmol/L Invalid Interpretation Code 3.3-5.1 [facility] Comment on above: Result Comment: Crit ical Result(s) Called at:1140 by:??August Ibanez to Dr. Alvarez. Results read back by same. Performed By: #### L 501.5600 ####[facility] [address] [place], [place], [address] Potassium measurement (mass/ volume)Ordered By: Milind Heath on 04-09-2025 Potassium (Unsp spec) [Mass/Vol] 2.8 mmol/L Low 3.3-5.1 [facility] Comment on above: Hemolysis present, R esults could be affected. Potassium measurement (mass/ volume)Ordered By: Christy Huerta on 04-09-2025 Potassium (Unsp spec) [Mass/Vol] 2.3 mmol/L Low 3.3-5.1 [facility] Comment on above: Critical Result(s) C alled at:1140 by: August Ibanez to Dr. Sarah Huerta. Results read back by same. Serum creatinine measurement (mass/volume)Ordered By: Milind Heath on 04-09-2025 Creatinine [Mass/Vol] 3.39 mg/dL High 0.70-1.20 [facility] Serum glucose measurement (m ass/volume)Ordered By: Milind Heath on 04-09-2025 Glucose [Mass/Vol] 151 mg/dL High 70-99 [facility] Serum or plasma calcium lesly urement (mass/volume)Ordered By: Milind Heath on 04-09-2025 Calcium [Mass/Vol] 9.2 mg/dL 7.6-11.0 [facility] Serum or plasma urea nitroge n measurement (mass/volume)Ordered By: Milind Heath on 04-09-2025 Urea nitrogen [Mass/Vol] 19 mg/dL 4- [facility] Sodium levelOrdered By: Milindkyle Heath on 04-09-2025 Sodium [Moles/Vol] 142 mmol/L 133-145 [facility] Surgery Visit Reporton 03-22 Surgery Visit Report Normal [facility] Endocrinology Visit Reporton 01-27-2025 Endocrinology Visit Report Normal [facility] Chest without Contraston Chest without Contrast Normal [facility] Surgery Visit Reporton 01-11 Surgery Visit Report Normal [facility] Basic Metabolic Profile (BMP )on 01-07-2025 BUN Normal - [facility] Comment on above: Result Comment: Canc elled via OM: Order cancelled - Patient discharged Performed By: #### L 500.2500, L100.0100 ####[facility] [address] [place], [address] BUN/CRE Normal 10-20 [facility] Comment on above: Result Comment: Canc elled via OM: Order cancelled - Patient discharged Performed By: #### L 500.2500, L100.0100 ####[facility] [address] [place], [address] Calcium Normal 7.6-11.0 [facility] Comment on above: Result Comment: Canc elled via OM: Order cancelled - Patient discharged Performed By: #### L 500.2500, L100.0100 ####[facility] [address] [place], [address] CL Normal 98-108 [facility] Comment on above: Result Comment: Canc elled via OM: Order cancelled - Patient discharged Performed By: #### L 500.2500, L100.0100 ####[facility] [address] [place], [address] CO2 Normal 21.0-32.0 [facility] Comment on above: Result Comment: Canc elled via OM: Order cancelled - Patient discharged Performed By: #### L 500.2500, L100.0100 ####[facility] [address] [place], [address] CREAT,SERUM Normal 0.70-1.20 [facility] Comment on above: Result Comment: Canc elled via OM: Order cancelled - Patient discharged Performed By: #### L 500.2500, L100.0100 ####[facility] [address] [place], [address] eGFR Normal >60 [facility] Comment on above: Result Comment: Canc elled via OM: Order cancelled - Patient discharged Performed By: #### L 500.2500, L100.0100 ####[facility] [address] [place], [address] GAP Normal 5-15 [facility] Comment on above: Result Comment: Canc elled via OM: Order cancelled - Patient discharged Performed By: #### L 500.2500, L100.0100 ####[facility] [address] [place], [address] GLU Normal 70-99 [facility] Comment on above: Result Comment: Canc elled via OM: Order cancelled - Patient discharged Performed By: #### L 500.2500, L100.0100 ####[facility] [address] [place], [address] Potassium Normal 3.3-5.1 [facility] Comment on above: Result Comment: Canc elled via OM: Order cancelled - Patient discharged Performed By: #### L 500.2500, L100.0100 ####[facility] [address] [place], [address] Basic Metabolic Profile (BMP) Normal 133-145 [facility] Comment on above: Result Comment: Canc elled via OM: Order cancelled - Patient discharged Performed By: #### L 500.2500, L100.0100 ####[facility] [address] [place], [address] CBC W/Diff, Automatedon -0 Absolute Neut Normal 2.0-7.7 [facility] Comment on above: Result Comment: Canc elled via OM: Order cancelled - Patient discharged Performed By: #### L 500.2500, L100.0100 ####[facility] [address] [place], [address] HCT Normal 37-47 [facility] Comment on above: Result Comment: Canc elled via OM: Order cancelled - Patient discharged Performed By: #### L 500.2500, L100.0100 ####[facility] [address] [place], [address] HGB Normal 12.0-15.0 [facility] Comment on above: Result Comment: Canc elled via OM: Order cancelled - Patient discharged Performed By: #### L 500.2500, L100.0100 ####[facility] [address] [place], [address] MCH Normal 27.0-32.0 [facility] Comment on above: Result Comment: Canc elled via OM: Order cancelled - Patient discharged Performed By: #### L 500.2500, L100.0100 ####[facility] [address] [place], [address] MCHC Normal 32-36 [facility] Comment on above: Result Comment: Canc elled via OM: Order cancelled - Patient discharged Performed By: #### L 500.2500, L100.0100 ####[facility] [facility] [address] [place], [address] MCV Normal 81-99 [facility] Comment on above: Result Comment: Canc elled via OM: Order cancelled - Patient discharged Performed By: #### L 500.2500, L100.0100 ####[facility] [address] [place], [address] NEUT% Normal 47-70 [facility] Comment on above: Result Comment: Canc elled via OM: Order cancelled - Patient discharged Performed By: #### L 500.2500, L100.0100 ####[facility] [address] [place], [address] PLT Normal 150-450 [facility] Comment on above: Result Comment: Canc elled via OM: Order cancelled - Patient discharged Performed By: #### L 500.2500, L100.0100 ####[facility] [address] [place], [address] RBC Normal 4.2-5.4 [facility] Comment on above: Result Comment: Canc elled via OM: Order cancelled - Patient discharged Performed By: #### L 500.2500, L100.0100 ####[facility] [address] [place], [address] RDW CV Normal 11.6-14.6 [facility] Comment on above: Result Comment: Canc elled via OM: Order cancelled - Patient discharged Performed By: #### L 500.2500, L100.0100 ####[facility] [address] [place], [address] RDW SD Normal 35.1-43.9 [facility] Comment on above: Result Comment: Canc elled via OM: Order cancelled - Patient discharged Performed By: #### L 500.2500, L100.0100 ####[facility] [address] [place], [address] WBC Normal 4.4-11.0 [facility] Comment on above: Result Comment: Canc elled via OM: Order cancelled - Patient discharged Performed By: #### L 500.2500, L100.0100 ####[facility] [address] [place], [address] Absolute lymphocyte countOrd ered By: He Cat on 01-06-2025 Lymphocytes Auto (Unsp spec) [#/Vol] 0.66 10*3/uL Low 0.83-4.51 [facility] Absolute neutrophil countOrd ered By: He Cat on 01-06-2025 Absolute neutrophil count 9.7 X10^3/uL High 2.0-7.7 [facility] Anion gap [Moles/Vol]Ordered By: He Cat on 01-06-2025 Anion gap in Serum or Plasma 12 - [facility] Anion gap in Serum or Plasma Ordered By: He Cat on 01-06-2025 Anion gap [Moles/Vol] 12 mmol/L - [facility] Automated lymphocyte count a s percentage of total leukocytesOrdered By: He Cat on 01-06-2025 Lymphocytes/100 WBC Auto (Unsp spec) 6.0 % Low 19-41 [facility] BUN/creatinine ratioOrdered By: He Cat on 01-06-2025 Urea nitrogen/Creatinine [Mass ratio] 13.0 mg/mg - [facility] BUN/creatinine ratio 13.0 RATIO - [facility] Basic Metabolic Profile (BMP )on 01-06-2025 BUN/CRE 13.0 RATIO Normal - [facility] Comment on above: Performed By: #### L 500.2500, L100.0100 ####[facility] [address] [place], [address] Calcium [Mass/Vol] 8.9 mg/dL Normal 7.6-11.0 [facility] Comment on above: Performed By: #### L 500.2500, L100.0100 ####[facility] [address] [place], [address] Chloride [Moles/Vol] 101 mmol/L Normal 98-108 [facility] Comment on above: Performed By: #### L 500.2500, L100.0100 ####[facility] [address] [place], [address] CO2 [Moles/Vol] 21.1 mmol/L Normal 21.0-32.0 [facility] Comment on above: Performed By: #### L 500.2500, L100.0100 ####[facility] [address] [place], [address] Creatinine [Mass/Vol] 3.23 mg/dL High 0.70-1.20 [facility] Comment on above: Performed By: #### L 500.2500, L100.0100 ####[facility] [address] [place], [address] ECRCL 12.75 ml/min Low 50-250 [facility] Comment on above: Performed By: #### L 500.2500, L100.0100 ####[facility] [address] [place], [address] GAP 12 Normal 5-15 [facility] Comment on above: Performed By: #### L 500.2500, L100.0100 ####[facility] [address] [place], [address] GFR/1.73 sq M.predicted among non-blacks MDRD (S/P/Bld) [Vol rate/Area] 15 mL/min/{1.73_m2} Low >60 [facility] Comment on above: Result Comment: mL/m in/1.73m2 CKD-EPI Creatinine Equation (2020) Performed By: #### L 500.2500, L100.0100 ####[facility] [address] [place], [address] Glucose [Mass/Vol] 337 mg/dL High 70-99 [facility] Comment on above: Performed By: #### L 500.2500, L100.0100 ####[facility] [address] [place], [address] Potassium [Moles/Vol] 5.6 mmol/L High 3.3-5.1 [facility] Comment on above: Performed By: #### L 500.2500, L100.0100 ####[facility] [address] [place], [address] Sodium [Moles/Vol] 134 mmol/L Normal 133-145 [facility] Comment on above: Performed By: #### L 500.2500, L100.0100 ####[facility] [address] [place], [address] Urea nitrogen [Mass/Vol] 42 mg/dL High 4-19 [facility] Comment on above: Performed By: #### L 500.2500, L100.0100 ####[facility] [address] [place], [address] Basophil percentageOrdered B y: Hekarma Cat on 01-06-2025 Basophils/100 WBC (Bld) 0.1 % 0-1 [facility] Bedside Glucoseon 01-06-2025 FINGERSTICK GLU 374 mg/dL High 74-106 [facility] Comment on above: Result Comment: SHELLY GEMENT OF PATIENT CARE PER NURSING PROTOCOL Performed By: #### L 501.080 ####[facility] [address] [place], [address] FINGERSTICK GLU 309 mg/dL High 74-106 [facility] Comment on above: Result Comment: SHELLY GEMENT OF PATIENT CARE PER NURSING PROTOCOL Performed By: #### L 501.080 ####[facility] [address] [place], [address] CBC W/Diff, Automatedon 03-0 6-2025 Absolute Lymph 0.66 X10 3/uL Low 0.83-4.51 [facility] Comment on above: Performed By: #### L 500.2500, L100.0100 ####[facility] [address] [place], [address] Absolute Neut 9.7 X10 3/uL High 2.0-7.7 [facility] Comment on above: Performed By: #### L 500.2500, L100.0100 ####[facility] [address] [place], [address] Basophils/100 WBC (Bld) 0.1 % Normal 0-1 [facility] Comment on above: Performed By: #### L 500.2500, L100.0100 ####[facility] [address] [place], [address] Eosinophils/100 WBC (Bld) 0.1 % Normal 0-5 [facility] Comment on above: Performed By: #### L 500.2500, L100.0100 ####[facility] [address] [place], [address] Erythrocyte distribution width (RBC) [Ratio] 13.0 % Normal 11.6-14.6 [facility] Comment on above: Performed By: #### L 500.2500, L100.0100 ####[facility] [address] [place], [address] Hematocrit (Bld) [Volume fraction] 28.8 % Low 37-47 [facility] Comment on above: Performed By: #### L 500.2500, L100.0100 ####[facility] [address] [place], [address] Hemoglobin (Bld) [Mass/Vol] 9.1 g/dL Low 12.0-15.0 [facility] Comment on above: Performed By: #### L 500.2500, L100.0100 ####[facility] [address] [place], [address] IG% 1.000 High 0.0-0.9 [facility] Comment on above: Result Comment: IG% - Immature Granulocytes (promyelocytes, myelocytes andmetamyelocytes) > 1% indicates that a LEFT SHIFT is Present. Performed By: #### L 500.2500, L100.0100 ####[facility] [address] [place], [address] Lymphocytes/100 WBC (Bld) 6.0 % Low 19-41 [facility] Comment on above: Performed By: #### L 500.2500, L100.0100 ####[facility] [address] [place], [address] MCH (RBC) [Entitic mass] 30.4 pg Normal 27.0-32.0 [facility] Comment on above: Performed By: #### L 500.2500, L100.0100 ####[facility] [address] [place], [address] MCHC (RBC) [Mass/Vol] 31.6 g/dL Low 32-36 [facility] Comment on above: Performed By: #### L 500.2500, L100.0100 ####[facility] [address] [place], [address] MCV (RBC) [Entitic vol] 96.3 fL Normal 81-99 [facility] Comment on above: Performed By: #### L 500.2500, L100.0100 ####[facility] [address] [place], [address] Monocytes/100 WBC (Bld) 4.8 % Normal 0-10 [facility] Comment on above: Performed By: #### L 500.2500, L100.0100 ####[facility] [address] [place], [address] Neutrophils/100 WBC (Bld) 88.0 % High 47-70 [facility] Comment on above: Performed By: #### L 500.2500, L100.0100 ####[facility] [address] [place], [address] Nucleated RBC (Bld) [#/Vol] 0 10*3/uL Normal 0-5 [facility] Comment on above: Performed By: #### L 500.2500, L100.0100 ####[facility] [address] [place], [address] Platelet mean volume (Bld) [Entitic vol] 9.8 fL Normal 6.2-12.0 [facility] Comment on above: Performed By: #### L 500.2500, L100.0100 ####[facility] [address] [place], [address] Platelets (Bld) [#/Vol] 229 10*3/uL Normal 150-450 [facility] Comment on above: Performed By: #### L 500.2500, L100.0100 ####[facility] [address] [place], [address] RBC (Bld) [#/Vol] 2.99 10*6/uL Low 4.2-5.4 [facility] Comment on above: Performed By: #### L 500.2500, L100.0100 ####[facility] [address] [place], [address] RDW SD 45.0 fl High 35.1-43.9 [facility] Comment on above: Performed By: #### L 500.2500, L100.0100 ####[facility] [address] [place], [address] WBC (Bld) [#/Vol] 11.0 10*3/uL Normal 4.4-11.0 [facility] Comment on above: Performed By: #### L 500.2500, L100.0100 ####[facility] [address] [place], [address] Calcium [Mass/Vol]Ordered By : He Cat on 01-06-2025 Serum or plasma calcium measurement (mass/volume) 8.9 mg/dL 7.6-11.0 [facility] Carbon dioxide, total [Moles /volume] in Central venous bloodOrdered By: He Cat on 01-06-2025 CO2 [Moles/Vol] 21.1 mmol/L 21.0-32.0 [facility] Carbon dioxide, total [Moles/volume] in Central venous blood 21.1 mmol/L 21.0-32.0 [facility] Chloride assayOrdered By: Sarbjit Cat on 01-06-2025 Chloride [Moles/Vol] 101 mmol/L 98-108 [facility] Chloride assay 101 mmol/L 98-108 [facility] Creatinine [Mass/Vol]Ordered By: He Cat on 01-06-2025 Serum creatinine measurement (mass/volume) 3.23 mg/dL High 0.70-1.20 [facility] Discharge Instructionon Discharge Instruction Normal [facility] Eosinophil percentageOrdered By: He Cat on 01-06-2025 Eosinophils/100 WBC (Bld) 0.1 % 0-5 [facility] Eosinophil percentage 0.1 % 0-1 [facility] Erythrocyte distribution wid th (RBC) [Entitic vol]Ordered By: He Cat on 01-06-2025 Erythrocyte distribution width standard deviation 45.0 fl High 35.1-43.9 [facility] Erythrocyte distribution wid th (RBC) [Ratio]Ordered By: He Cat on 01-06-2025 Erythrocyte distribution width ratio 13.0 % 11.6-14.6 [facility] Erythrocyte distribution wid th ratioOrdered By: He Cat on 01-06-2025 Erythrocyte distribution width (RBC) [Ratio] 13.0 % 11.6-14.6 [facility] Erythrocyte distribution wid th standard deviationOrdered By: He Cat on 01-06-2025 Erythrocyte distribution width (RBC) [Ratio] 45.0 fl High 35.1-43.9 [facility] Estimation of creatinine abdulkadir aranceOrdered By: He Cat on 01-06-2025 Estimation of creatinine clearance 12.75 ml/min Low 50-250 [facility] GFR/1.73 sq M.predicted kris g non-blacks MDRD (S/P/Bld) [Vol rate/Area]Ordered By: He Cat on 01-06-2025 Glomerular filtration rate (GFR) estimation/1.73 sq m using serum, plasma, or whole b 15 Low >60 [facility] Glomerular filtration rate ( GFR) estimation/1.73 sq m using serum, plasma, or whole bOrdered By: He Cat on 01-06-2025 GFR/1.73 sq M.predicted among non-blacks MDRD (S/P/Bld) [Vol rate/Area] 15 mL/min/{1.73_m2} Low >60 [facility] Glucose [Mass/Vol]Ordered By : He Cat on 01-06-2025 Serum glucose measurement (mass/volume) 337 mg/dL High 70-99 [facility] Glucose measurement at bedsi deOrdered By: He Cat on 01-06-2025 Glucose [Mass/Vol] 374 mg/dL High 74-106 [facility] Glucose measurement at bedside 374 mg/dL High 74-106 [facility] Hematocrit Auto (Bld) [Volum e fraction]Ordered By: He Cat on 01-06-2025 Hematocrit (Bld) [Volume fraction] 28.8 % Low 37-47 [facility] Automated blood hematocrit (percentage) 28.8 % Low 37-47 [facility] Hemoglobin measurementOrdere d By: He Cat on 01-06-2025 Hemoglobin (Bld) [Mass/Vol] 9.1 g/dL Low 12.0-15.0 [facility] Hemoglobin measurement 9.1 g/dL Low 12.0-15.0 [facility] Immature granulocytes/100 WB C Auto (Bld)Ordered By: He Cat on 01-06-2025 Immature granulocytes/100 WBC (Bld) 1.000 % High 0.0-0.9 [facility] Automated immature granulocyte percentage 1.000 % High 0.0-0.9 [facility] Lymphocytes Auto (Unsp spec) [#/Vol]Ordered By: He Cat on 01-06-2025 Absolute lymphocyte count 0.66 X10^3/uL Low 0.83-4.51 [facility] Lymphocytes/100 WBC Auto (Un sp spec)Ordered By: He Cat on 01-06-2025 Automated lymphocyte count as percentage of total leukocytes 6.0 % Low 19-41 [facility] MCV (RBC) [Entitic vol]Order ed By: He Cat on 01-06-2025 MCV (mean corpuscular volume) determination 96.3 fL 81-99 [facility] MCV (mean corpuscular volume ) determinationOrdered By: He Cat on 01-06-2025 MCV (RBC) [Entitic vol] 96.3 fL 81-99 [facility] Mean corpuscular hemoglobin (MCH) determinationOrdered By: He Cat on 01-06-2025 MCH (RBC) [Entitic mass] 30.4 pg 27.0-32.0 [facility] Mean corpuscular hemoglobin (MCH) determination 30.4 pg 27.0-32.0 [facility] Mean corpuscular hemoglobin concentration (MCHC) determinationOrdered By: He Cat on 01-06-2025 Mean corpuscular hemoglobin concentration (MCHC) determination 31.6 g/dL Low 32-36 [facility] Mean platelet volume determi nationOrdered By: He Cat on 01-06-2025 Mean platelet volume determination 9.8 fl 6.2-12.0 [facility] Monocyte percentageOrdered B y: He Cat on 01-06-2025 Monocytes/100 WBC (Bld) 4.8 % 0-10 [facility] Monocyte percentage 4.8 % 0-10 [facility] Neutrophil percentageOrdered By: He Cat on 01-06-2025 Neutrophils/100 WBC (Bld) 88.0 % High 47-70 [facility] [facility] Neutrophil percentage 88.0 % High 47-70 [facility] Nucleated red blood cell per centageOrdered By: He Cat on 01-06-2025 Nucleated red blood cell percentage 0 % 0-5 [facility] Platelet countOrdered By: Sarbjit Cat on 01-06-2025 Platelets (Bld) [#/Vol] 229 10*3/uL 150-450 [facility] Platelet count 229 K/mm3 150-450 [facility] Potassium (Unsp spec) [Mass/ Vol]Ordered By: He Cat on 01-06-2025 Potassium measurement (mass/volume) 5.6 mmol/L High 3.3-5.1 [facility] Potassium measurement (mass/ volume)Ordered By: He Cat on 01-06-2025 Potassium (Unsp spec) [Mass/Vol] 5.6 mmol/L High 3.3-5.1 [facility] RBC Auto (Bld) [#/Vol]Ordere d By: He Cat on 01-06-2025 RBC (Bld) [#/Vol] 2.99 10*6/uL Low 4.2-5.4 [facility] Automated blood erythrocyte count 2.99 M/mm3 Low 4.2-5.4 [facility] Serum creatinine measurement (mass/volume)Ordered By: He Cat on 01-06-2025 Creatinine [Mass/Vol] 3.23 mg/dL High 0.70-1.20 [facility] Serum glucose measurement (m ass/volume)Ordered By: He Cat on 01-06-2025 Glucose [Mass/Vol] 337 mg/dL High 70-99 [facility] Serum or plasma calcium lesly urement (mass/volume)Ordered By: He Cat on 01-06-2025 Calcium [Mass/Vol] 8.9 mg/dL 7.6-11.0 [facility] Serum or plasma urea nitroge n measurement (mass/volume)Ordered By: He Cat on 01-06-2025 Urea nitrogen [Mass/Vol] 42 mg/dL High 4-19 [facility] Sodium levelOrdered By: Samantha Cat on 01-06-2025 Sodium [Moles/Vol] 134 mmol/L 133-145 [facility] Sodium level 134 mmol/L 133-145 [facility] Urea nitrogen [Mass/Vol]Orde red By: He Cat on 01-06-2025 Serum or plasma urea nitrogen measurement (mass/volume) 42 mg/dL High 4-19 [facility] White blood cell (WBC) count Ordered By: He Cat on 01-06-2025 WBC (Bld) [#/Vol] 11.0 10*3/uL 4.4-11.0 [facility] White blood cell (WBC) count 11.0 K/mm3 4.4-11.0 [facility] Albumin [Mass/Vol]Ordered By : Christy Huerta on 01-05-2025 Serum or plasma albumin measurement (mass/volume) 3.4 g/dL 3.4-4.8 [facility] Arterial patency Wrist arter y --pre arterial punctureOrdered By: He Cat on 01-05-2025 Assessment of wrist artery patency prior to arterial puncture Positive [facility] Assessment of wrist artery p atency prior to arterial punctureOrdered By: He Cat on 01-05-2025 Arterial patency Wrist artery --pre arterial puncture Positive [facility] Base excess Calc (BldV) [Mol es/Vol]Ordered By: He Cat on 01-05-2025 Blood base excess determination -1 mmol/L -2-2 [facility] Bedside Glucoseon 01-05-2025 FINGERSTICK GLU 338 mg/dL High 74-106 [facility] Comment on above: Result Comment: SHELLY GEMENT OF PATIENT CARE PER NURSING PROTOCOL Performed By: #### L 501.080 ####[facility] [address] [place], [address] FINGERSTICK GLU 292 mg/dL High [address] [place] [address] Comment on above: Result Comment: SHELLY GEMENT OF PATIENT CARE PER NURSING PROTOCOL Performed By: #### L 501.080 ####[facility] [address] [place], [address] FINGERSTICK GLU 419 mg/dL High [address] [place] [address] Comment on above: Result Comment: SHELLY GEMENT OF PATIENT CARE PER NURSING PROTOCOL Performed By: #### L 501.080 ####[facility] [address] [place], [address] FINGERSTICK GLU 286 mg/dL High [facility]106 [facility] Comment on above: Result Comment: SHELLY ENGEL OF PATIENT CARE PER NURSING PROTOCOL Performed By: #### L 501.080 ####[facility] [address] [place], [address] Blood Gases by [facility] 025 TINY TEST Positive Normal [facility] Comment on above: Performed By: #### L 9000.0800 ####[facility] [address] [place], [address] Base excess Calc (Bld) [Moles/Vol] -1 mmol/L Normal -2 to +2 [facility] Comment on above: Performed By: #### L 9000.0800 ####[facility] [address] [place], [address] Blood Gas Type ART Normal [facility] Comment on above: Performed By: #### L 9000.0800 ####[facility] [address] [place], [address] Comment Normal [facility] Comment on above: Result Comment: Bipa p settings of IPAP 18, EPAP 8, fio2 30 % Performed By: #### L 9000.0800 ####[facility] [address] [place], [address] FI02 30.0 Normal [facility] Comment on above: Performed By: #### L 9000.0800 ####[facility] [address] [place], [address] Mode Not entered Normal [facility] Comment on above: Performed By: #### L 9000.0800 ####[facility] [address] [place], [address] O2 Delivery Dev BiPAP Normal [facility] Comment on above: Performed By: #### L 9000.0800 ####[facility] [address] [place], [address] pCO2 55.0 mmHg High 35-45 [facility] Comment on above: Performed By: #### L 9000.0800 ####[facility] [address] [place], [address] pH (Bld) 7.28 [pH] Low 7.35-7.45 [facility] Comment on above: Performed By: #### L 9000.0800 ####[facility] [address] [place], [address] PO2 87 mmHG Normal 75-100 [facility] Comment on above: Performed By: #### L 9000.0800 ####[facility] [address] [place], [address] SITE L Radial Normal [facility] Comment on above: Performed By: #### L 9000.0800 ####[facility] [address] [place], [address] SO2 95 Normal 95-99 [facility] Comment on above: Performed By: #### L 9000.0800 ####[facility] [address] [place], [address] Blood base excess determinat ionOrdered By: He Cat on 01-05-2025 Base excess Calc (BldV) [Moles/Vol] -1 mmol/L -2-2 [facility] Blood bicarbonate measuremen tOrdered By: He Cat on 01-05-2025 HCO3 (Bld) [Moles/Vol] 25.6 mmol/L Normal - [facility] Comment on above: Performed By: #### L 9000.0800 ####[facility] [address] [place], [address] Blood bicarbonate measurement 25.6 mmol/L - [facility] CBC-Complete Blood Cnt No Di ffon 01-05-2025 Erythrocyte distribution width (RBC) [Ratio] 12.9 % Normal 11.6-14.6 [facility] Comment on above: Performed By: #### L 100.0500, L500.3600 ####[facility] [address] [place], [address] Hematocrit (Bld) [Volume fraction] 29.6 % Low 37-47 [facility] Comment on above: Performed By: #### L 100.0500, L500.3600 ####[facility] [address] [place], [address] Hemoglobin (Bld) [Mass/Vol] 9.4 g/dL Low 12.0-15.0 [facility] Comment on above: Performed By: #### L 100.0500, L500.3600 ####[facility] [address] [place], [address] MCH (RBC) [Entitic mass] 30.3 pg Normal 27.0-32.0 [facility] Comment on above: Performed By: #### L 100.0500, L500.3600 ####[facility] [address] [place], [address] MCHC (RBC) [Mass/Vol] 31.8 g/dL Low 32-36 [facility] Comment on above: Performed By: #### L 100.0500, L500.3600 ####[facility] [address] [place], [address] MCV (RBC) [Entitic vol] 95.5 fL Normal 81-99 [facility] Comment on above: Performed By: #### L 100.0500, L500.3600 ####[facility] [address] [place], [address] Platelet mean volume (Bld) [Entitic vol] 10.0 fL Normal 6.2-12.0 [facility] Comment on above: Performed By: #### L 100.0500, L500.3600 ####[facility] [address] [place], [address] Platelets (Bld) [#/Vol] 235 10*3/uL Normal 150-450 [facility] Comment on above: Performed By: #### L 100.0500, L500.3600 ####[facility] [address] [place], [address] RBC (Bld) [#/Vol] 3.10 10*6/uL Low 4.2-5.4 [facility] Comment on above: Performed By: #### L 100.0500, L500.3600 ####[facility] [address] [place], [address] RDW SD 44.2 fl High 35.1-43.9 [facility] Comment on above: Performed By: #### L 100.0500, L500.3600 ####[facility] [address] [place], [address] WBC (Bld) [#/Vol] 10.5 10*3/uL Normal 4.4-11.0 [facility] Comment on above: Performed By: #### L 100.0500, L500.3600 ####[facility] [address] [place], [address] Consultation - Intensiviston 01-05-2025 Consultation - Web Press Jogger Normal [facility] Determination of fraction of inspired oxygenOrdered By: He Cat on 01-05-2025 Determination of fraction of inspired oxygen 30.0 [facility] HbA1c (Bld) [Mass fraction]O rdered By: He Cat on 01-05-2025 Hemoglobin A1c percentage 6.6 % >5.7 [facility] Hemoglobin A1con 01-05-2025 HbA1c (Bld) [Mass fraction] 6.6 % Normal <=5.6 [facility] Comment on above: Performed By: #### L 501.9985 ####[facility] [address] [place], [address] Hemoglobin A1c percentageOrd ered By: He Cat on 01-05-2025 HbA1c (Bld) [Mass fraction] 6.6 % >5.7 [facility] L509.7001on 01-05-2025 Procalcitonin 2.31 ng/mL High <=0.10 [facility] Comment on above: Result Comment: Inte rpretation:<0.10-0.25 ng/mL: Antibiotic therapy discouraged. Bacterialinfection unlikely.0.25-0.50 ng/mL: Antibiotic therapy encouraged. Bacterialinfection possible.>0.50 ng/mL: Antibiotic therapy strongly encouraged.Suggestive of presence of bacterial infection.PCT should always be interpreted in the clinical context ofthe patient. Therefore, clinicians should use the PCTresults in conjunction with other laboratory findings andclinical signs of the patient. Performed By: #### L 509.7001 ####[facility] [address] [place], [address] Measurement, pHOrdered By: Isabelle Cat on 01-05-2025 pH (Unsp spec) 7.28 [pH] Low 7.35-7.45 [facility] No Panel InformationOrdered By: He Cat on 01-05-2025 ART [facility] L Radial [facility] Not entered [facility] BiPAP [facility] See comment [facility] No Panel InformationOrdered By: Terrance Alva on 01-05-2025 2.31 ng/mL High <0.11 [facility] Oxygen saturation measuremen tOrdered By: He Cat on 01-05-2025 Oxygen saturation measurement 95 % 95-99 [facility] Partial pressure of carbon d ioxide measurementOrdered By: He Cat on 01-05-2025 Partial pressure of carbon dioxide measurement 55.0 mmHg High 35-45 [facility] Partial pressure of oxygen m easurementOrdered By: He Cat on 01-05-2025 Partial pressure of oxygen measurement 87 mmHG 75-100 [facility] RESPIRATORY PANEL MOLECULARo n 01-05-2025 RP PANEL Normal [facility] Comment on above: Performed By: #### M 100.638 ####[facility] [address] [place], [address] Renal Profileon 01-05-2025 Albumin [Mass/Vol] 3.4 g/dL Normal 3.4-4.8 [facility] Comment on above: Performed By: #### L 100.0500, L500.3600 ####[facility] [address] [place], [address] BUN/CRE 10.7 RATIO Normal 10-20 [facility] Comment on above: Performed By: #### L 100.0500, L500.3600 ####[facility] [address] [place], [address] Calcium [Mass/Vol] 9.2 mg/dL Normal 7.6-11.0 [facility] Comment on above: Performed By: #### L 100.0500, L500.3600 ####[facility] [address] [place], [address] Chloride [Moles/Vol] 95 mmol/L Low 98-108 [facility] Comment on above: Performed By: #### L 100.0500, L500.3600 ####[facility] [address] [place], [address] CO2 [Moles/Vol] 23.6 mmol/L Normal 21.0-32.0 [facility] Comment on above: Performed By: #### L 100.0500, L500.3600 ####[facility] [address] [place], [address] Creatinine [Mass/Vol] 3.67 mg/dL High 0.70-1.20 [facility] Comment on above: Performed By: #### L 100.0500, L500.3600 ####[facility] [address] [place], [address] ECRCL 11.77 ml/min Low 50-250 [facility] Comment on above: Performed By: #### L 100.0500, L500.3600 ####[facility] [address] [place], [address] GAP 11 Normal 5-15 [facility] Comment on above: Performed By: #### L 100.0500, L500.3600 ####[facility] [address] [place], [address] GFR/1.73 sq M.predicted among non-blacks MDRD (S/P/Bld) [Vol rate/Area] 13 mL/min/{1.73_m2} Low >60 [facility] Comment on above: Result Comment: mL/m in/1.73m2 CKD-EPI Creatinine Equation (2020) Performed By: #### L 100.0500, L500.3600 ####[facility] [address] [place], [address] Glucose [Mass/Vol] 301 mg/dL High 70-99 [facility] Comment on above: Performed By: #### L 100.0500, L500.3600 ####[facility] [address] [place], [address] Potassium [Moles/Vol] 6.1 mmol/L Invalid Interpretation Code 3.3-5.1 [facility] Comment on above: Result Comment: Crit ical Result(s) Called at 01/05/2025-09:34 by Kalia Tong??Results read back by same. Performed By: #### L 100.0500, L500.3600 ####[facility] [address] [place], [address] Sodium [Moles/Vol] 130 mmol/L Low 133-145 [facility] Comment on above: Performed By: #### L 100.0500, L500.3600 ####[facility] [address] [place], [place], [address] Urea nitrogen [Mass/Vol] 39 mg/dL High 4-19 [facility] Comment on above: Performed By: #### L 100.0500, L500.3600 ####[facility] [address] [place], [place], [address] Respiratory pathogens detect ion panel by molecular detection methodOrdered By: Terrance Alva on 01-05-2025 Respiratory pathogens DNA and RNA panel MARISA+probe (Resp) [facility] Serum or plasma albumin lesly urement (mass/volume)Ordered By: Christy Huerta on 01-05-2025 Albumin [Mass/Vol] 3.4 g/dL 3.4-4.8 [facility] Serum or plasma vancomycin m easurement (mass/volume)Ordered By: He Cat on 01-05-2025 Vancomycin [Mass/Vol] 15.1 ug/mL High 0.0-15.0 [facility] Serum phosphorus measurement Ordered By: Christy Huerta on 01-05-2025 Serum phosphorus measurement 4.3 mg/dL 2.7-4.5 [facility] Total carbon dioxide measure mentOrdered By: He Cat on 01-05-2025 CO2 [Moles/Vol] 27 mmol/L Normal [facility] Comment on above: Performed By: #### L 9000.0800 ####[facility] [address] [place], [place], [address] Total carbon dioxide measurement 27 mmol/L [facility] Vancomycin [Mass/Vol]Ordered By: He Cat on 01-05-2025 Serum or plasma vancomycin measurement (mass/volume) 15.1 ug/mL High 0.0-15.0 [facility] Vancomycin, Random Levelon 0 01-05-2025 VANCO, RANDOM 15.1 ug/mL High 0.0-15.0 [facility] Comment on above: Order Comment: Comme nts: BEFORE HEMODIALYSIS Result Comment: VANC OMYCIN STANDARD DRUG THERAPY: CRITICAL VALUE IS > 15.0 mg/LVANCOMYCIN HIGH INTENSITY THERAPY: CRITICAL VALUE IS > 20.0 mg/LPLEASE CONTACT PHARMACY SERVICES (#8391) FOR INTERPRETATIONOF RESULTS. THIS RESULT DOES NOT REPRESENT A PEAK OR TROUGHLEVEL FOR THIS DRUG. Performed By: #### L 501.8850 ####[facility] [address] [place], [address] pH (Unsp spec)Ordered By: Sarbjit Cat on 01-05-2025 Measurement, pH 7.28 Low 7.35-7.45 [facility] Basic Metabolic Profile (BMP )on 01-04-2025 BUN/CRE 9.2 RATIO Low 10-20 [facility] Comment on above: Performed By: #### L 100.0100, L500.2500 ####[facility] [address] [place], [address] Calcium [Mass/Vol] 9.8 mg/dL Normal 7.6-11.0 [facility] Comment on above: Performed By: #### L 100.0100, L500.2500 ####[facility] [address] [place], [address] Chloride [Moles/Vol] 94 mmol/L Low 98-108 [facility] Comment on above: Performed By: #### L 100.0100, L500.2500 ####[facility] [address] [place], [address] CO2 [Moles/Vol] 26.9 mmol/L Normal 21.0-32.0 [facility] Comment on above: Performed By: #### L 100.0100, L500.2500 ####[facility] [address] [place], [address] Creatinine [Mass/Vol] 4.27 mg/dL High 0.70-1.20 [facility] Comment on above: Performed By: #### L 100.0100, L500.2500 ####[facility] [address] [place], [address] ECRCL 10.41 ml/min Low 50-250 [facility] Comment on above: Performed By: #### L 100.0100, L500.2500 ####[facility] [address] [place], [address] GAP 8 Normal 5-15 [facility] Comment on above: Performed By: #### L 100.0100, L500.2500 ####[facility] [address] [place], [address] GFR/1.73 sq M.predicted among non-blacks MDRD (S/P/Bld) [Vol rate/Area] 11 mL/min/{1.73_m2} Low >60 [facility] Comment on above: Result Comment: mL/m in/1.73m2 CKD-EPI Creatinine Equation (2020) Performed By: #### L 100.0100, L500.2500 ####[facility] [address] [place], [address] Glucose [Mass/Vol] 256 mg/dL High 70-99 [facility] Comment on above: Performed By: #### L 100.0100, L500.2500 ####[facility] [address] [place], [address] Potassium [Moles/Vol] 5.4 mmol/L High 3.3-5.1 [facility] Comment on above: Performed By: #### L 100.0100, L500.2500 ####[facility] [address] [place], [address] Sodium [Moles/Vol] 129 mmol/L Low 133-145 [facility] Comment on above: Performed By: #### L 100.0100, L500.2500 ####[facility] [address] [place], [address] Urea nitrogen [Mass/Vol] 39 mg/dL High 4-19 [facility] Comment on above: Performed By: #### L 100.0100, L500.2500 ####[facility] [address] [place], [address] Bedside Glucoseon 01-04-2025 FINGERSTICK GLU 308 mg/dL High [address] [place] [address] Comment on above: Result Comment: SHELLY GEMENT OF PATIENT CARE PER NURSING PROTOCOL Performed By: #### L 501.080 ####[facility] [address] [place], [address] FINGERSTICK GLU 133 mg/dL High [address] [place] [address] Comment on above: Result Comment: SHELLY GEMENT OF PATIENT CARE PER NURSING PROTOCOL Performed By: #### L 501.080 ####[facility] [address] [place], [address] FINGERSTICK GLU 282 mg/dL High [address] [place] [address] Comment on above: Result Comment: SHELLY GEMENT OF PATIENT CARE PER NURSING PROTOCOL Performed By: #### L 501.080 ####[facility] [address] [place], [address] FINGERSTICK GLU 33 mg/dL Invalid Interpretation Code [address] [place] [address] Comment on above: Result Comment: [facility] k GivenMANAGEMENT OF PATIENT CARE PER NURSING PROTOCOL Performed By: #### L 501.080 ####[facility] [address] [place], [address] FINGERSTICK GLU 37 mg/dL Invalid Interpretation Code [address] [place] [address] Comment on above: Result Comment: [facility] k GivenMANAGEMENT OF PATIENT CARE PER NURSING PROTOCOL Performed By: #### L 501.080 ####[facility] [address] [place], [address] FINGERSTICK GLU 303 mg/dL High [address] [place] [address] Comment on above: Result Comment: SHELLY GEMENT OF PATIENT CARE PER NURSING PROTOCOL Performed By: #### L 501.080 ####[facility] [address] [place], [address] FINGERSTICK GLU 188 mg/dL High 74-106 [facility] Comment on above: Result Comment: SHELLY GEMENT OF PATIENT CARE PER NURSING PROTOCOL Performed By: #### L 501.080 ####[facility] [address] [place], [address] FINGERSTICK GLU 132 mg/dL High 74-106 [facility] Comment on above: Result Comment: SHELLY GEMENT OF PATIENT CARE PER NURSING PROTOCOL Performed By: #### L 501.080 ####[facility] [address] [place], [address] FINGERSTICK GLU 153 mg/dL High 74-106 [facility] Comment on above: Result Comment: SHELLY GEMENT OF PATIENT CARE PER NURSING PROTOCOL Performed By: #### L 501.080 ####[facility] [address] [place], [address] FINGERSTICK GLU 173 mg/dL High 74-106 [facility] Comment on above: Result Comment: SHELLY GEMENT OF PATIENT CARE PER NURSING PROTOCOL Performed By: #### L 501.080 ####[facility] [address] [place], [address] FINGERSTICK GLU 251 mg/dL High 74-106 [facility] Comment on above: Result Comment: SHELLY GEMENT OF PATIENT CARE PER NURSING PROTOCOL Performed By: #### L 501.080 ####[facility] [address] [place], [address] FINGERSTICK GLU 244 mg/dL High -106 [facility] Comment on above: Result Comment: SHELLY GEMENT OF PATIENT CARE PER NURSING PROTOCOL Performed By: #### L 501.080 ####[facility] [address] [place], [address] FINGERSTICK GLU 170 mg/dL High 74-106 [facility] Comment on above: Result Comment: SHELLY GEMENT OF PATIENT CARE PER NURSING PROTOCOL Performed By: #### L 501.080 ####[facility] [address] [place], [address] [facility] by [facility] TINY TEST Positive Normal [facility] Comment on above: Performed By: #### L 9000.0800 ####[facility] [address] [place], [address] Base excess Calc (Bld) [Moles/Vol] 7 mmol/L High -2 to +2 [facility] Comment on above: Performed By: #### L 9000.0800 ####[facility] [address] [place], [address] Blood Gas Type ART Normal [facility] Comment on above: Performed By: #### L 9000.0800 ####[facility] [address] [place], [address] CO2 [Moles/Vol] 36 mmol/L Normal [facility] Comment on above: Performed By: #### L 9000.0800 ####[facility] [address] [place], [address] Comment Normal [facility] Comment on above: Result Comment: Bipa p settings of 15/8 rate of 12, fio2 30% Performed By: #### L 9000.0800 ####[facility] [address] [place], [address] FI02 30.0 Normal [facility] Comment on above: Performed By: #### L 9000.0800 ####[facility] [address] [place], [address] HCO3 (Bld) [Moles/Vol] 33.3 mmol/L High 22-26 [facility] Comment on above: Performed By: #### L 9000.0800 ####[facility] [address] [place], [address] Mode Not entered [facility] Comment on above: Performed By: #### L 9000.0800 ####[facility] [address] [place], [address] O2 Delivery Dev BiPAP Normal [facility] Comment on above: Performed By: #### L 9000.0800 ####[facility] [address] [place], [address] pCO2 71.6 mmHg Invalid Interpretation Code 35-45 [facility] Comment on above: Performed By: #### L 9000.0800 ####[facility] [address] [place], [address] pH (Bld) 7.28 [pH] Low 7.35-7.45 [facility] Comment on above: Performed By: #### L 9000.0800 ####[facility] [address] [place], [address] PO2 69 mmHG Low 75-100 [facility] Comment on above: Performed By: #### L 9000.0800 ####[facility] [address] [place], [address] Read Back By Yes Normal [facility] Comment on above: Performed By: #### L 9000.0800 ####[facility] [address] [place], [address] SITE % Normal [facility] Comment on above: Performed By: #### L 9000.0800 ####[facility] [address] [place], [address] SO2 90 Low 95-99 [facility] Comment on above: Performed By: #### L 9000.0800 ####[facility] [address] [place], [address] TINY TEST Positive Normal [facility] Comment on above: Performed By: #### L 9000.08 ####[facility] [address] [place], [address] Base excess Calc (Bld) [Moles/Vol] 4 mmol/L High -2 to +2 [facility] Comment on above: Performed By: #### L 9000.0800 ####[facility] [address] [place], [address] Blood Gas Type ART Normal [facility] Comment on above: Performed By: #### L 9000.0800 ####[facility] [address] [place], [address] CO2 [Moles/Vol] 34 mmol/L Normal [facility] Comment on above: Performed By: #### L 9000.0800 ####[facility] [address] [place], [address] FI02 3.0 Normal [facility] Comment on above: Performed By: #### L 9000.0800 ####[facility] [address] [place], [address] HCO3 (Bld) [Moles/Vol] 31.3 mmol/L High 22-26 [facility] Comment on above: Performed By: #### L 9000.0800 ####[facility] [address] [place], [address] Mode Not entered [facility] Comment on above: Performed By: #### L 9000.0800 ####[facility] [address] [place], [address] O2 Delivery Dev Cannula Normal [facility] Comment on above: Performed By: #### L 9000.0800 ####[facility] [address] [place], [address] pCO2 72.6 mmHg Invalid Interpretation Code 35-45 [facility] Comment on above: Performed By: #### L 9000.0800 ####[facility] [address] [place], [address] pH (Bld) 7.24 [pH] Low 7.35-7.45 [facility] Comment on above: Performed By: #### L 9000.0800 ####[facility] [address] [place], [address] PO2 86 mmHG Normal 75-100 [facility] Comment on above: Performed By: #### L 9000.0800 ####[facility] [address] [place], [address] Read Back By Yes Normal [facility] Comment on above: Performed By: #### L 9000.0800 ####[facility] [address] [place], [address] Results To pradeep Normal [facility] Comment on above: Performed By: #### L 9000.0800 ####[facility] [address] [place], [address] SITE L Radial Normal [facility] Comment on above: Performed By: #### L 9000.0800 ####[facility] [address] [place], [address] SO2 94 Low 95-99 [facility] Comment on above: Performed By: #### L 9000.0800 ####[facility] [address] [place], [address] Time Given 10:46:25 Normal [facility] Comment on above: Performed By: #### L 9000.0800 ####[facility] [address] [place], [address] CBC W/Diff, Automatedon 03-0 Absolute Lymph 2.60 X10 3/uL Normal 0.83-4.51 [facility] Comment on above: Performed By: #### L 100.0100, L500.2500 ####[facility] [address] [place], [address] Absolute Neut 7.4 X10 3/uL Normal 2.0-7.7 [facility] Comment on above: Performed By: #### L 100.0100, L500.2500 ####[facility] [address] [place], [address] Basophils/100 WBC (Bld) 0.6 % Normal 0-1 [facility] Comment on above: Performed By: #### L 100.0100, L500.2500 ####[facility] [address] [place], [address] Eosinophils/100 WBC (Bld) 6.4 % High 0-5 [facility] Comment on above: Performed By: #### L 100.0100, L500.2500 ####[facility] [address] [place], [address] Erythrocyte distribution width (RBC) [Ratio] 12.5 % Normal 11.6-14.6 [facility] Comment on above: Performed By: #### L 100.0100, L500.2500 ####[facility] [address] [place], [address] Hematocrit (Bld) [Volume fraction] 29.7 % Low 37-47 [facility] Comment on above: Performed By: #### L 100.0100, L500.2500 ####[facility] [address] [place], [address] Hemoglobin (Bld) [Mass/Vol] 9.2 g/dL Low 12.0-15.0 [facility] Comment on above: Performed By: #### L 100.0100, L500.2500 ####[facility] [address] [place], [address] IG% 0.400 Normal 0.0-0.9 [facility] Comment on above: Result Comment: IG% - Immature Granulocytes (promyelocytes, myelocytes andmetamyelocytes) > 1% indicates that a LEFT SHIFT is Present. Performed By: #### L 100.0100, L500.2500 ####[facility] [address] [place], [address] Lymphocytes/100 WBC (Bld) 21.5 % Normal 19-41 [facility] Comment on above: Performed By: #### L 100.0100, L500.2500 ####[facility] [address] [place], [address] MCH (RBC) [Entitic mass] 30.3 pg Normal 27.0-32.0 [facility] Comment on above: Performed By: #### L 100.0100, L500.2500 ####[facility] [address] [place], [address] MCHC (RBC) [Mass/Vol] 31.0 g/dL Low 32-36 [facility] Comment on above: Performed By: #### L 100.0100, L500.2500 ####[facility] [address] [place], [address] MCV (RBC) [Entitic vol] 97.7 fL Normal 81-99 [facility] Comment on above: Performed By: #### L 100.0100, L500.2500 ####[facility] [address] [place], [address] Monocytes/100 WBC (Bld) 10.2 % High 0-10 [facility] Comment on above: Performed By: #### L 100.0100, L500.2500 ####[facility] [address] [place], [address] Neutrophils/100 WBC (Bld) 60.9 % Normal 47-70 [facility] Comment on above: Performed By: #### L 100.0100, L500.2500 ####[facility] [address] [place], [address] Nucleated RBC (Bld) [#/Vol] 0 10*3/uL Normal 0-5 [facility] Comment on above: Performed By: #### L 100.0100, L500.2500 ####[facility] [address] [place], [address] Platelet mean volume (Bld) [Entitic vol] 9.5 fL Normal 6.2-12.0 [facility] Comment on above: Performed By: #### L 100.0100, L500.2500 ####[facility] [address] [place], [address] Platelets (Bld) [#/Vol] 227 10*3/uL Normal 150-450 [facility] Comment on above: Performed By: #### L 100.0100, L500.2500 ####[facility] [address] [place], [address] RBC (Bld) [#/Vol] 3.04 10*6/uL Low 4.2-5.4 [facility] Comment on above: Performed By: #### L 100.0100, L500.2500 ####[facility] [address] [place], [address] RDW SD 44.8 fl High 35.1-43.9 [facility] Comment on above: Performed By: #### L 100.0100, L500.2500 ####[facility] [address] [place], [address] WBC (Bld) [#/Vol] 12.1 10*3/uL High 4.4-11.0 [facility] Comment on above: Performed By: #### L 100.0100, L500.2500 ####[facility] [address] [place], [address] Consultation - Nephrologyon 01-04-2025 Consultation - Nephrology Normal [facility] Influenza virus A and B and SARS-CoV-2 (COVID-19) and Respiratory syncytial virus RNAOrdered By: He Cat on 01-04-2025 SARS-CoV-2 (COVID-19) RNA MARISA+probe Ql (Unsp spec) [facility] M100.678on 01-04-2025 M100.678 Pending SARS-CoV-2 (COVID 19) Negative INFLUENZA A Negative INFLUENZA B Negative RSV PCR Negative Normal [facility] Comment on above: Performed By: #### M 100.678 ####[facility] [address] [place], [address] M8200.1000on 01-04-2025 M8200.1000 Normal Reference Ran ge = Negative GeneXpert Instrument, PCR method MRSA PCR MRSA NEGATIVE Normal [facility] Comment on above: Performed By: #### M 8200.1000 ####[facility] [address] [place], [address] Nasal methicillin resistant Staphylococcus aureus (MRSA) DNA detection by PCROrdered By: He Cat on 01-04-2025 MRSA DNA MARISA+probe Ql (Nose) [facility] No Panel InformationOrdered By: He Cat on 01-04-2025 Yes [facility] 10:46:25 [facility] pradeep [facility] 12 Lead EKGon 01-03-2025 12 Lead EKG Normal [facility] Basic Metabolic Profile (BMP )on 01-03-2025 BUN/CRE 9.0 RATIO Low 10-20 [facility] Comment on above: Performed By: #### L 100.0100, L500.2500 ####[facility] [address] [place], [address] Calcium [Mass/Vol] 9.2 mg/dL Normal 7.6-11.0 [facility] Comment on above: Performed By: #### L 100.0100, L500.2500 ####[facility] [address] [place], [address] Chloride [Moles/Vol] 95 mmol/L Low 98-108 [facility] Comment on above: Performed By: #### L 100.0100, L500.2500 ####[facility] [address] [place], [address] CO2 [Moles/Vol] 32.3 mmol/L High 21.0-32.0 [facility] Comment on above: Performed By: #### L 100.0100, L500.2500 ####[facility] [address] [place], [address] Creatinine [Mass/Vol] 4.48 mg/dL High 0.70-1.20 [facility] Comment on above: Performed By: #### L 100.0100, L500.2500 ####[facility] [address] [place], [address] ECRCL 11.50 ml/min Low 50-250 [facility] Comment on above: Performed By: #### L 100.0100, L500.2500 ####[facility] [address] [place], [address] GAP 5 Normal 5-15 [facility] Comment on above: Performed By: #### L 100.0100, L500.2500 ####[facility] [address] [place], [address] GFR/1.73 sq M.predicted among non-blacks MDRD (S/P/Bld) [Vol rate/Area] 10 mL/min/{1.73_m2} Low >60 [facility] Comment on above: Result Comment: mL/m in/1.73m2 CKD-EPI Creatinine Equation (2020) Performed By: #### L 100.0100, L500.2500 ####[facility] [address] [place], [address] Glucose [Mass/Vol] 158 mg/dL High 70-99 [facility] Comment on above: Performed By: #### L 100.0100, L500.2500 ####[facility] [address] [place], [address] Potassium [Moles/Vol] 5.8 mmol/L High 3.3-5.1 [facility] Comment on above: Result Comment: Hemo lysis present, Results??could be affected.?? Performed By: #### L 100.0100, L500.2500 ####[facility] [address] [place], [address] Sodium [Moles/Vol] 133 mmol/L Normal 133-145 [facility] Comment on above: Performed By: #### L 100.0100, L500.2500 ####[facility] [address] [place], [address] Urea nitrogen [Mass/Vol] 40 mg/dL High 4-19 [facility] Comment on above: Performed By: #### L 100.0100, L500.2500 ####[facility] [address] [place], [address] CBC W/Diff, Automatedon 03-0 3-2025 Absolute Lymph 1.39 X10 3/uL Normal 0.83-4.51 [facility] Comment on above: Performed By: #### L 100.0100, L500.2500 ####[facility] [address] [place], [address] Absolute Neut 6.3 X10 3/uL Normal 2.0-7.7 [facility] Comment on above: Performed By: #### L 100.0100, L500.2500 ####[facility] [address] [place], [address] Basophils/100 WBC (Bld) 0.6 % Normal 0-1 [facility] Comment on above: Performed By: #### L 100.0100, L500.2500 ####[facility] [address] [place], [address] Eosinophils/100 WBC (Bld) 7.0 % High 0-5 [facility] Comment on above: Performed By: #### L 100.0100, L500.2500 ####[facility] [address] [place], [address] Erythrocyte distribution width (RBC) [Ratio] 12.4 % Normal 11.6-14.6 [facility] Comment on above: Performed By: #### L 100.0100, L500.2500 ####[facility] [address] [place], [address] Hematocrit (Bld) [Volume fraction] 31.8 % Low 37-47 [facility] Comment on above: Performed By: #### L 100.0100, L500.2500 ####[facility] [address] [place], [address] Hemoglobin (Bld) [Mass/Vol] 10.1 g/dL Low 12.0-15.0 [facility] Comment on above: Performed By: #### L 100.0100, L500.2500 ####[facility] [address] [place], [address] IG% 0.400 Normal 0.0-0.9 [facility] Comment on above: Result Comment: IG% - Immature Granulocytes (promyelocytes, myelocytes andmetamyelocytes) > 1% indicates that a LEFT SHIFT is Present. Performed By: #### L 100.0100, L500.2500 ####[facility] [address] [place], [address] Lymphocytes/100 WBC (Bld) 15.0 % Low 19-41 [facility] Comment on above: Performed By: #### L 100.0100, L500.2500 ####[facility] [address] [place], [address] MCH (RBC) [Entitic mass] 30.4 pg Normal 27.0-32.0 [facility] Comment on above: Performed By: #### L 100.0100, L500.2500 ####[facility] [address] [place], [address] MCHC (RBC) [Mass/Vol] 31.8 g/dL Low 32-36 [facility] Comment on above: Performed By: #### L 100.0100, L500.2500 ####[facility] [address] [place], [address] MCV (RBC) [Entitic vol] 95.8 fL Normal 81-99 [facility] Comment on above: Performed By: #### L 100.0100, L500.2500 ####[facility] [address] [place], [address] Monocytes/100 WBC (Bld) 8.8 % Normal 0-10 [facility] Comment on above: Performed By: #### L 100.0100, L500.2500 ####[facility] [address] [place], [address] Neutrophils/100 WBC (Bld) 68.2 % Normal 47-70 [facility] Comment on above: Performed By: #### L 100.0100, L500.2500 ####[facility] [address] [place], [address] Nucleated RBC (Bld) [#/Vol] 0 10*3/uL Normal 0-5 [facility] Comment on above: Performed By: #### L 100.0100, L500.2500 ####[facility] [address] [place], [address] Platelet mean volume (Bld) [Entitic vol] 9.5 fL Normal 6.2-12.0 [facility] Comment on above: Performed By: #### L 100.0100, L500.2500 ####[facility] [address] [place], [address] Platelets (Bld) [#/Vol] 228 10*3/uL Normal 150-450 [facility] Comment on above: Performed By: #### L 100.0100, L500.2500 ####[facility] [address] [place], [address] RBC (Bld) [#/Vol] 3.32 10*6/uL Low 4.2-5.4 [facility] Comment on above: Performed By: #### L 100.0100, L500.2500 ####[facility] [address] [place], [address] RDW SD 43.1 fl Normal 35.1-43.9 [facility] Comment on above: Performed By: #### L 100.0100, L500.2500 ####[facility] [address] [place], [address] WBC (Bld) [#/Vol] 9.3 10*3/uL Normal 4.4-11.0 [facility] Comment on above: Performed By: #### L 100.0100, L500.2500 ####[facility] [address] [place], [address] Chest PA and Lateralon 01-03 Chest PA and Lateral Normal [facility] Emergency Department Summary on 01-03-2025 Emergency Department Summary Normal [facility] 12-30-2024 CNPN Telephone (TXCTGL) SANDY DENG ([id number]) 1960 F Date Time Provider Department 12/30/24 KIDNEY TXP COORDINATORS TXCTGL During your visit today, we recorded the following information about you: [place] James 12/30/2024 11:06 AM Signed Called and spoke with the patient in regards to kidney transplant referral, she states she started the process with [facility], and would like to [...] Reason for Visit: Referral - Kidney Txp [[id number]] Prescriptions as of 12/30/2024 - promethazine (PHENERGAN) [...] Status:Closed by MON[place] JAMES on 12/30/24 Normal [facility] 12-29-2024 CNPN Telephone (TXCTGL) SANDY DENG ([id number]) 1960 F Date Time Provider Department 12/29/24 [facility] During your visit today, we recorded the following information about you: Otilia Portillo Tech 12/29/2024 10:51 AM Signed I spoke with Lita at [facility] who confirmed the patients demographic information and confirmed that the phone number that we have on file for the patient is incorrect. The correct phone number is [phone]. Allergies As of Date: 12/29/2024 Noted Allergy Reaction environmental [Other] 03/23/2009 Date Reviewed: 04/02/2012 Reviewed by: Dominga Garza (Rn), RN - Fully Assessed Reason for Visit: Referral - Kidney Txp [[id number]] Prescriptions as of 12/29/2024 - promethazine (PHENERGAN) [...] Status:Closed by OTILIA PORTILLO on 12/29/24 Normal [facility] Bedside Glucoseon 12-28-2024 FINGERSTICK GLU 207 mg/dL High 74-106 [facility] Comment on above: Result Comment: SHELLY GEMENT OF PATIENT CARE PER NURSING PROTOCOL Performed By: #### L 501.080 ####[facility] [address] [place], [place], [address]48([phone] FINGERSTICK GLU 166 mg/dL High -106 [facility] Comment on above: Result Comment: SHELLY GEMENT OF PATIENT CARE PER NURSING PROTOCOL Performed By: #### L 501.080 ####[facility] [address] [place], [address] FINGERSTICK GLU 135 mg/dL High [address] [place] [address] Comment on above: Result Comment: SHELLY GEMENT OF PATIENT CARE PER NURSING PROTOCOL Performed By: #### L 501.080 ####[facility] [address] [place], [address] Discharge Instructionon 12-05 Discharge Instruction Normal [facility]dered By: Favian Sinclair on 12-28-2024 Glucose [Mass/Vol] 207 mg/dL High 74-106 [facility] Glucose measurement at bedside 207 mg/dL High 74-106 [facility] MR/POSTOP.ANEon 12-28-2024 MR/POSTOP.ANE Normal [facility] MR/[id number] 12-28-2024 MR/POSTOPAN2 Normal [facility] Operative Reporton Operative Report Normal [facility] Basic Metabolic Profile (BMP )on 12-25-2024 BUN/CRE 6.9 RATIO Low 10-20 [facility] Comment on above: Performed By: #### L 100.0500, L500.2500 ####[facility] [address] [place], [address] CA,Total 9.0 mg/dL Normal 8.5-10.1 [facility] Comment on above: Performed By: #### L 100.0500, L500.2500 ####[facility] [address] [place], [address] Chloride [Moles/Vol] 96 mmol/L Low 98-107 [facility] Comment on above: Performed By: #### L 100.0500, L500.2500 ####[facility] [address] [place], [address] CO2 [Moles/Vol] 35.0 mmol/L High 21.0-32.0 [facility] Comment on above: Performed By: #### L 100.0500, L500.2500 ####[facility] [address] [place], [address] Creatinine [Mass/Vol] 3.19 mg/dL High 0.55-1.02 [facility] Comment on above: Result Comment: The validity of the calculated GFR GFRAA in patients over70 years has not been determined. Clinical correlation isessential. Performed By: #### L 100.0500, L500.2500 ####[facility] [address] [place], [address] EST GFR - AA 19 mL/min Low >60 [facility] Comment on above: Result Comment: Afri can Nauruan GFR Calc Performed By: #### L 100.0500, L500.2500 ####[facility] [address] [place], [address] GAP 3 Low 5-15 [facility] Comment on above: Performed By: #### L 100.0500, L500.2500 ####[facility] [address] [place], [address] GFR/1.73 sq M.predicted among non-blacks MDRD (S/P/Bld) [Vol rate/Area] 16 mL/min/{1.73_m2} Low >60 [facility] Comment on above: Result Comment: Non- GFR Calc Performed By: #### L 100.0500, L500.2500 ####[facility] [address] [place], [address] Glucose [Mass/Vol] 212 mg/dL High 74-106 [facility] Comment on above: Result Comment: Gluc ose result greater than or equal to 200 mg/dLsuggests DIABETES MELLITUS per A.D.A. criteria. Performed By: #### L 100.0500, L500.2500 ####[facility] [address] [place], [address] Potassium [Moles/Vol] 4.0 mmol/L Normal 3.5-5.1 [facility] Comment on above: Performed By: #### L 100.0500, L500.2500 ####[facility] [address] [place], [address] Sodium [Moles/Vol] 134 mmol/L Low 136-145 [facility] Comment on above: Performed By: #### L 100.0500, L500.2500 ####[facility] [address] [place], [address] Urea nitrogen [Mass/Vol] 22 mg/dL High 7-18 [facility] Comment on above: Performed By: #### L 100.0500, L500.2500 ####[facility] [address] [place], [address] Blood urea nitrogen (BUN)/cr eatinine ratioOrdered By: Favian Sinclair on 12-25-2024 Blood urea nitrogen (BUN)/creatinine ratio 6.9 RATIO Low 10-20 [facility] CBC-Complete Blood Cnt No Di ffon 12-25-2024 Erythrocyte distribution width (RBC) [Ratio] 12.4 % Normal 11.6-14.6 [facility] Comment on above: Performed By: #### L 100.0500, L500.2500 ####[facility] [address] [place], [address] Hematocrit (Bld) [Volume fraction] 33.1 % Low 37-47 [facility] Comment on above: Performed By: #### L 100.0500, L500.2500 ####[facility] [address] [place], [address] Hemoglobin (Bld) [Mass/Vol] 10.6 g/dL Low 12.0-15.0 [facility] Comment on above: Performed By: #### L 100.0500, L500.2500 ####[facility] [address] [place], [address] MCH (RBC) [Entitic mass] 30.1 pg Normal 27.0-32.0 [facility] Comment on above: Performed By: #### L 100.0500, L500.2500 ####[facility] [address] [place], [address] MCHC (RBC) [Mass/Vol] 32.0 g/dL Normal 32-36 [facility] Comment on above: Performed By: #### L 100.0500, L500.2500 ####[facility] [address] [place], [address] MCV (RBC) [Entitic vol] 94.0 fL Normal 81-99 [facility] Comment on above: Performed By: #### L 100.0500, L500.2500 ####[facility] [address] [place], [address] Platelet mean volume (Bld) [Entitic vol] 9.4 fL Normal 6.2-12.0 [facility] Comment on above: Performed By: #### L 100.0500, L500.2500 ####[facility] [address] [place], [address] Platelets (Bld) [#/Vol] 220 10*3/uL Normal 150-450 [facility] Comment on above: Performed By: #### L 100.0500, L500.2500 ####[facility] [address] [place], [address] RBC (Bld) [#/Vol] 3.52 10*6/uL Low 4.2-5.4 [facility] Comment on above: Performed By: #### L 100.0500, L500.2500 ####[facility] [address] [place], [address] RDW SD 42.8 fl Normal 35.1-43.9 [facility] Comment on above: Performed By: #### L 100.0500, L500.2500 ####[facility] [address] [place], [address] WBC (Bld) [#/Vol] 7.7 10*3/uL Normal 4.4-11.0 [facility] Comment on above: Performed By: #### L 100.0500, L500.2500 ####[facility] [address] [place], [address] Calcium [Mass/Vol]Ordered By : Favian Sinclair on 12-25-2024 Serum or plasma calcium measurement (mass/volume) 9.0 mg/dL 8.5-10.1 [facility] Carbon dioxide measurementOr dered By: Favian Sinclair on 12-25-2024 CO2 [Moles/Vol] 35.0 mmol/L High 21.0-32.0 [facility] Carbon dioxide measurement 35.0 mmol/L High 21.0-32.0 [facility] Chloride measurementOrdered By: Favian Sinclair on 12-25-2024 Chloride [Moles/Vol] 96 mmol/L Low 98-107 [facility] Chloride measurement 96 mmol/L Low 98-107 [facility] Creatinine [Mass/Vol]Ordered By: Favian Sinclair on 12-25-2024 Serum or plasma creatinine measurement (mass/volume) 3.19 mg/dL High 0.55-1.02 [facility] Erythrocyte distribution wid th (RBC) [Entitic vol]Ordered By: Favian Sinclair 12-25-2024 Erythrocyte distribution width standard deviation 42.8 fl 35.1-43.9 [facility] Erythrocyte distribution wid th (RBC) [Ratio]Ordered By: Favian Sinclair on 12-25-2024 Erythrocyte distribution width ratio 12.4 % 11.6-14.6 [facility] Erythrocyte distribution wid th ratioOrdered By: Favian Sinclair 12-25-2024 Erythrocyte distribution width (RBC) [Ratio] 12.4 % 11.6-14.6 [facility] Erythrocyte distribution wid th standard deviationOrdered By: Favian Sinclair 12-25-2024 Erythrocyte distribution width (RBC) [Ratio] 42.8 fl 35.1-43.9 [facility] Estimated glomerular filtrat ion rate (GFR) AmericanOrdered By: Favian Sinclair on 12-25-2024 Estimated glomerular filtration rate (GFR) 19 mL/min Low >60 [facility] Glomerular filtration rate ( GFR) estimationOrdered By: Favian Sinclair 12-25-2024 GFR/1.73 sq M.predicted among non-blacks MDRD (S/P/Bld) [Vol rate/Area] 16 mL/min/{1.73_m2} Low >60 [facility] Glomerular filtration rate (GFR) estimation 16 mL/min Low >60 [facility] Glucose measurementOrdered B y: Favian Sinclair on 12-25-2024 Glucose [Mass/Vol] 212 mg/dL High 74-106 [facility] Glucose measurement 212 mg/dL High 74-106 [facility] Hematocrit Auto (Bld) [Volum e fraction]Ordered By: Favian Sinclair on 12-25-2024 Hematocrit (Bld) [Volume fraction] 33.1 % Low 37-47 [facility] Automated blood hematocrit (percentage) 33.1 % Low 37-47 [facility] Hemoglobin measurementOrdere d By: Favian Sinclair on 12-25-2024 Hemoglobin (Bld) [Mass/Vol] 10.6 g/dL Low 12.0-15.0 [facility] Hemoglobin measurement 10.6 g/dL Low 12.0-15.0 [facility] MCV (RBC) [Entitic vol]Order ed By: Favian Sinclair on 12-25-2024 MCV (mean corpuscular volume) determination 94.0 fL 81-99 [facility] MCV (mean corpuscular volume ) determinationOrdered By: Favian Sinclair on 12-25-2024 MCV (RBC) [Entitic vol] 94.0 fL 81-99 [facility] Mean corpuscular hemoglobin (MCH) determinationOrdered By: Favian Sinclair on 12-25-2024 MCH (RBC) [Entitic mass] 30.1 pg 27.0-32.0 [facility] Mean corpuscular hemoglobin (MCH) determination 30.1 pg 27.0-32.0 [facility] Mean corpuscular hemoglobin concentration (MCHC) determinationOrdered By: Favian Sinclair on 12-25-2024 Mean corpuscular hemoglobin concentration (MCHC) determination 32.0 g/dL 32-36 [facility] Mean platelet volume determi nationOrdered By: Favian Sinclair on 12-25-2024 Mean platelet volume determination 9.4 fl 6.2-12.0 [facility] Platelet countOrdered By: Saurabh Sinclair on 12-25-2024 Platelets (Bld) [#/Vol] 220 10*3/uL 150-450 [facility] Platelet count 220 K/mm3 150-450 [facility] Potassium measurementOrdered By: Favian Sinclair on 12-25-2024 Potassium [Moles/Vol] 4.0 mmol/L 3.5-5.1 [facility] Potassium measurement 4.0 mmol/L 3.5-5.1 [facility] RBC Auto (Bld) [#/Vol]Ordere d By: Favian Sinclair on 12-25-2024 RBC (Bld) [#/Vol] 3.52 10*6/uL Low 4.2-5.4 [facility] Automated blood erythrocyte count 3.52 M/mm3 Low 4.2-5.4 [facility] Serum anion gap measurementO rdered By: Favian Sinclair on 12-25-2024 Serum anion gap measurement 3 Low 5-15 [facility] Serum or plasma calcium lesly urement (mass/volume)Ordered By: Favian Sinclair on 12-25-2024 Calcium [Mass/Vol] 9.0 mg/dL 8.5-10.1 [facility] Serum or plasma creatinine m easurement (mass/volume)Ordered By: Favian Sinclair on 12-25-2024 Creatinine [Mass/Vol] 3.19 mg/dL High 0.55-1.02 [facility] Serum or plasma urea nitroge n measurement (mass/volume)Ordered By: Favian Sinclair on 12-25-2024 Urea nitrogen [Mass/Vol] 22 mg/dL High - [facility] Sodium levelOrdered By: Favian Sinclair on 12-25-2024 Sodium [Moles/Vol] 134 mmol/L Low 136-145 [facility] Sodium level 134 mmol/L Low 136-145 [facility] Urea nitrogen [Mass/Vol]Orde red By: Favian Sinclair on 12-25-2024 Serum or plasma urea nitrogen measurement (mass/volume) 22 mg/dL High - [facility] White blood cell (WBC) count Ordered By: Favian Sinclair on 12-25-2024 WBC (Bld) [#/Vol] 7.7 10*3/uL 4.4-11.0 [facility] White blood cell (WBC) count 7.7 K/mm3 4.4-11.0 [facility] CNPNon 12-24-2024 CNPN Telephone (TXCTGL) SANDY DENG ([id number]) 1960 F Date Time Provider Department 12/24/24 KIDNEY TXP COORDINATORS TXCTGL During your visit today, we recorded the following information about you: BruceMontana sharp 12/24/2024 1:29 PM Signed Called Sandy Deng without success regarding referral. Voicemail message was left for patient to call our office. [place] James Allergies As of Date: 12/24/2024 Noted Allergy Reaction environmental [Other] 03/23/2009 Date Reviewed: 04/02/2012 Reviewed by: Dominga Garza (Rn), RN - Fully Assessed Reason for Visit: Referral - Kidney Txp [[id number]] Prescriptions as of 12/24/2024 - promethazine (PHENERGAN) [...] Status:Closed by [place] JAMES on 12/24/24 Normal [facility] MR/PAT.ANEon 12-20-2024 MR/PAT.ANE Normal [facility] Echo Completeon 12-17-2024 Echo Complete Normal [facility] Cardiology Visit Reporton Cardiology Visit Report Normal [facility] MR/PAT.ANEon 12-15-2024 MR/PAT.ANE Normal [facility] MR/PAT.ANEon 12-14-2024 MR/PAT.ANE Normal [facility] MR/BMS.BVSon 12-02-2024 MR/BMS.BVS Normal [facility] 12 Lead EKGon 11-20-2024 12 Lead EKG Normal [facility] 12 Lead EKG Normal [facility] ALP [Catalytic activity/Vol] Ordered By: Alex Kaur on 11-20-2024 Serum or plasma alkaline phosphatase measurement 71 U/L 45-117 [facility] ALT [Catalytic activity/Vol] Ordered By: Alex Kaur on 11-20-2024 Serum or plasma alanine aminotransferase (ALT) measurement 17 U/L 13-56 [facility] Absolute neutrophil countOrd ered By: Alex Kaur on 11-20-2024 Absolute neutrophil count 4.4 X10^3/uL 2.0-7.7 [facility] Albumin [Mass/Vol]Ordered By : Alex Kaur on 11-20-2024 Serum or plasma albumin measurement (mass/volume) 2.9 g/dL Low 3.2-5.0 [facility] Albumin to globulin ratioOrd ered By: Alex Kaur on 11-20-2024 Albumin to globulin ratio 0.9 RATIO 0.9-2.4 [facility] Basophil percentageOrdered B y: Alex Kaur on 11-20-2024 Basophil percentage 0.6 % 0-1 [facility] Bilirubin, totalOrdered By: Alex Kaur on 11-20-2024 Bilirubin, total 0.30 mg/dL 0.20-1.00 [facility] Blood urea nitrogen (BUN)/cr eatinine ratioOrdered By: Alex Kaur on 11-20-2024 Blood urea nitrogen (BUN)/creatinine ratio 8.1 RATIO Low 10-20 [facility] CBC W/Diff, Automatedon 11-03 Absolute Lymph 1.88 X10 3/uL Normal 0.83-4.51 [facility] Comment on above: Performed By: #### L 500.4050, L100.0100 ####[facility] [address] [place], [address] Absolute Neut 4.4 X10 3/uL Normal 2.0-7.7 [facility] Comment on above: Performed By: #### L 500.4050, L100.0100 ####[facility] [address] [place], [address] Basophils/100 WBC (Bld) 0.6 % Normal 0-1 [facility] Comment on above: Performed By: #### L 500.4050, L100.0100 ####[facility] [address] [place], [address] Eosinophils/100 WBC (Bld) 7.6 % High 0-5 [facility] Comment on above: Performed By: #### L 500.4050, L100.0100 ####[facility] [address] [place], [address] Erythrocyte distribution width (RBC) [Ratio] 12.6 % Normal 11.6-14.6 [facility] Comment on above: Performed By: #### L 500.4050, L100.0100 ####[facility] [address] [place], [address] Hematocrit (Bld) [Volume fraction] 35.8 % Low 37-47 [facility] Comment on above: Performed By: #### L 500.4050, L100.0100 ####[facility] [address] [place], [address] Hemoglobin (Bld) [Mass/Vol] 11.5 g/dL Low 12.0-15.0 [facility] Comment on above: Performed By: #### L 500.4050, L100.0100 ####[facility] [address] [place], [address] IG% 0.500 Normal 0.0-0.9 [facility] Comment on above: Result Comment: IG% - Immature Granulocytes (promyelocytes, myelocytes andmetamyelocytes) > 1% indicates that a LEFT SHIFT is Present. Performed By: #### L 500.4050, L100.0100 ####[facility] [address] [place], [address] Lymphocytes/100 WBC (Bld) 24.4 % Normal 19-41 [facility] Comment on above: Performed By: #### L 500.4050, L100.0100 ####[facility] [address] [place], [address] MCH (RBC) [Entitic mass] 30.4 pg Normal 27.0-32.0 [facility] Comment on above: Performed By: #### L 500.4050, L100.0100 ####[facility] [address] [place], [address] MCHC (RBC) [Mass/Vol] 32.1 g/dL Normal 32-36 [facility] Comment on above: Performed By: #### L 500.4050, L100.0100 ####[facility] [address] [place], [address] MCV (RBC) [Entitic vol] 94.7 fL Normal 81-99 [facility] Comment on above: Performed By: #### L 500.4050, L100.0100 ####[facility] [address] [place], [address] Monocytes/100 WBC (Bld) 9.7 % Normal 0-10 [facility] Comment on above: Performed By: #### L 500.4050, L100.0100 ####[facility] [address] [place], [address] Neutrophils/100 WBC (Bld) 57.2 % Normal 47-70 [facility] Comment on above: Performed By: #### L 500.4050, L100.0100 ####[facility] [address] [place], [address] Nucleated RBC (Bld) [#/Vol] 0 10*3/uL Normal 0-5 [facility] Comment on above: Performed By: #### L 500.4050, L100.0100 ####[facility] [address] [place], [address] Platelet mean volume (Bld) [Entitic vol] 9.1 fL Normal 6.2-12.0 [facility] Comment on above: Performed By: #### L 500.4050, L100.0100 ####[facility] [address] [place], [address] Platelets (Bld) [#/Vol] 193 10*3/uL Normal 150-450 [facility] Comment on above: Performed By: #### L 500.4050, L100.0100 ####[facility] [address] [place], [address] RBC (Bld) [#/Vol] 3.78 10*6/uL Low 4.2-5.4 [facility] Comment on above: Performed By: #### L 500.4050, L100.0100 ####[facility] [address] [place], [address] RDW SD 42.2 fl Normal 35.1-43.9 [facility] Comment on above: Performed By: #### L 500.4050, L100.0100 ####[facility] [address] [place], [address] WBC (Bld) [#/Vol] 7.7 10*3/uL Normal 4.4-11.0 [facility] Comment on above: Performed By: #### L 500.4050, L100.0100 ####[facility] [address] [place], [address] Calcium [Mass/Vol]Ordered By : Alex Kaur on 11-20-2024 Serum or plasma calcium measurement (mass/volume) 9.3 mg/dL 8.5-10.1 [facility] Carbon dioxide measurementOr dered By: Alex Kaur on 11-20-2024 Carbon dioxide measurement 33.0 mmol/L High 21.0-32.0 [facility] Chest 1 View (Portable)on Chest 1 View (Portable) Normal [facility] Chloride measurementOrdered By: Alex Kaur on 11-20-2024 Chloride measurement 102 mmol/L 98-107 [facility] Comprehensive Metabolic Prof ilon 11-20-2024 Albumin [Mass/Vol] 2.9 g/dL Low 3.2-5.0 [facility] Comment on above: Performed By: #### L 500.4050, L100.0100 ####[facility] [address] [place], [address] Albumin/Globulin [Mass ratio] 0.9 {ratio} Normal 0.9-2.4 [facility] Comment on above: Performed By: #### L 500.4050, L100.0100 ####[facility] [address] [place], [address] ALK P 71 U/L Normal 45-117 [facility] Comment on above: Performed By: #### L 500.4050, L100.0100 ####[facility] [address] [place], [address] ALT [Catalytic activity/Vol] 17 U/L Normal 13-56 [facility] Comment on above: Performed By: #### L 500.4050, L100.0100 ####[facility] [address] [place], [address] AST [Catalytic activity/Vol] 14 U/L Low 15-37 [facility] Comment on above: Performed By: #### L 500.4050, L100.0100 ####[facility] [address] [place], [address] Bilirubin [Mass/Vol] 0.30 mg/dL Normal 0.20-1.00 [facility] Comment on above: Result Comment: For patients on eltrombopag therapy, use of Dimension [place] TBIL is not recommended. Performed By: #### L 500.4050, L100.0100 ####[facility] [address] [place], [address] BUN/CRE 8.1 RATIO Low 10-20 [facility] Comment on above: Performed By: #### L 500.4050, L100.0100 ####[facility] [address] [place], [address] CA,Total 9.3 mg/dL Normal 8.5-10.1 [facility] Comment on above: Performed By: #### L 500.4050, L100.0100 ####[facility] [address] [place], [address] Chloride [Moles/Vol] 102 mmol/L Normal 98-107 [facility] Comment on above: Performed By: #### L 500.4050, L100.0100 ####[facility] [address] [place], [address] CO2 [Moles/Vol] 33.0 mmol/L High 21.0-32.0 [facility] Comment on above: Performed By: #### L 500.4050, L100.0100 ####[facility] [address] [place], [address] Creatinine [Mass/Vol] 2.85 mg/dL High 0.55-1.02 [facility] Comment on above: Result Comment: The validity of the calculated GFR GFRAA in patients over70 years has not been determined. Clinical correlation isessential. Performed By: #### L 500.4050, L100.0100 ####[facility] [address] [place], [address] ECRCL 15.85 ml/min Normal [facility] Comment on above: Performed By: #### L 500.4050, L100.0100 ####[facility] [address] [place], [address] EST GFR - AA 21 mL/min Low >60 [facility] Comment on above: Result Comment: Afri can Nauruan GFR Calc Performed By: #### L 500.4050, L100.0100 ####[facility] [address] [place], [address] GAP 2 Low 5-15 [facility] Comment on above: Performed By: #### L 500.4050, L100.0100 ####[facility] [address] [place], [address] GFR/1.73 sq M.predicted among non-blacks MDRD (S/P/Bld) [Vol rate/Area] 18 mL/min/{1.73_m2} Low >60 [facility] Comment on above: Result Comment: Non- GFR Calc Performed By: #### L 500.4050, L100.0100 ####[facility] [address] [place], [address] Globulin (S) [Mass/Vol] 3.4 g/dL Normal 2.2-4.2 [facility] Comment on above: Performed By: #### L 500.4050, L100.0100 ####[facility] [address] [place], [address] Glucose [Mass/Vol] 105 mg/dL Normal 74-106 [facility] Comment on above: Result Comment: Fast ing Glucose result from 100 to 125 mg/dLsuggests IMPAIRED HOMEOSTASIS per A.D.A. criteria. Performed By: #### L 500.4050, L100.0100 ####[facility] [address] [place], [address] Potassium [Moles/Vol] 4.4 mmol/L Normal 3.5-5.1 [facility] Comment on above: Performed By: #### L 500.4050, L100.0100 ####[facility] [address] [place], [address] Sodium [Moles/Vol] 137 mmol/L Normal 136-145 [facility] Comment on above: Performed By: #### L 500.4050, L100.0100 ####[facility] [address] [place], [address] T PROT 6.3 g/dL Low 6.4-8.2 [facility] Comment on above: Performed By: #### L 500.4050, L100.0100 ####[facility] [address] [place], [address] Urea nitrogen [Mass/Vol] 23 mg/dL High -18 [facility] Comment on above: Performed By: #### L 500.4050, L100.0100 ####[facility] [address] [place], [address] Creatinine [Mass/Vol]Ordered By: Alex Kaur on 11-20-2024 Serum or plasma creatinine measurement (mass/volume) 2.85 mg/dL High 0.55-1.02 [facility] Emergency Department Summary on 11-20-2024 Emergency Department Summary Normal [facility] Eosinophil percentageOrdered By: Alex Kaur on 11-20-2024 Eosinophil percentage 7.6 % High 0-5 [facility] Erythrocyte distribution wid th (RBC) [Entitic vol]Ordered By: Alex Kaur on 11-20-2024 Erythrocyte distribution width standard deviation 42.2 fl 35.1-43.9 [facility] Erythrocyte distribution wid th (RBC) [Ratio]Ordered By: Alex Kaur on 11-20-2024 Erythrocyte distribution width ratio 12.6 % 11.6-14.6 [facility] Estimated glomerular filtrat ion rate (GFR) AmericanOrdered By: Alex Kaur on 11-20-2024 Estimated glomerular filtration rate (GFR) 21 mL/min Low >60 [facility] Estimation of creatinine abdulkadir aranceOrdered By: Alex Kaur on 11-20-2024 Estimation of creatinine clearance 15.85 ml/min [facility] Glomerular filtration rate ( GFR) estimationOrdered By: Alex Kaur on 11-20-2024 Glomerular filtration rate (GFR) estimation 18 mL/min Low >60 [facility] Glucose measurementOrdered B y: Alex Kaur on 11-20-2024 Glucose measurement 105 mg/dL 74-106 [facility] Hematocrit Auto (Bld) [Volum e fraction]Ordered By: Alex Kaur on 11-20-2024 Automated blood hematocrit (percentage) 35.8 % Low 37-47 [facility] Hemoglobin measurementOrdere d By: Alex Kaur on 11-20-2024 Hemoglobin measurement 11.5 g/dL Low 12.0-15.0 [facility] Immature granulocytes/100 WB C Auto (Bld)Ordered By: Alex Kaur on 11-20-2024 Automated immature granulocyte percentage 0.500 % 0.0-0.9 [facility] L501.4020on 11-20-2024 TROPONIN-I HS 108 pg/mL High 3.0-54.0 [facility] Comment on above: Order Comment: 'TROP ' Serial specimen #1, #2 or #3: 2 Result Comment: Ry adhikari Note: New Test Units and Gender Specific Reference Ranges. For more information see Policy Stat Procedure [place] High Sensitivity Troponin (TNIH) and attachments. Performed By: #### L 501.4020 ####[facility] [address] [facility] [address] [place], [place], [address] TROPONIN-I HS 113 pg/mL High 3.0-54.0 [facility] Comment on above: Order Comment: 'TROP ' Serial specimen #1, #2 or #3: 1 Result Comment: Ry adhikari Note: New Test Units and Gender Specific Reference Ranges. For more information see Policy Stat Procedure [place] High Sensitivity Troponin (TNIH) and attachments. Performed By: #### L 501.4020 ####[facility] [address] [facility] [address] [place], [place], [address] Lymphocytes Auto (Unsp spec) [#/Vol]Ordered By: Alex Kaur on 11-20-2024 Absolute lymphocyte count 1.88 X10^3/uL 0.83-4.51 [facility] Lymphocytes/100 WBC Auto (Un sp spec)Ordered By: Alex Kaur on 11-20-2024 Automated lymphocyte count as percentage of total leukocytes 24.4 % 19-41 [facility] MCV (RBC) [Entitic vol]Order ed By: Alex Kaur on 11-20-2024 MCV (mean corpuscular volume) determination 94.7 fL 81-99 [facility] Mean corpuscular hemoglobin (MCH) determinationOrdered By: Alex Kaur on 11-20-2024 Mean corpuscular hemoglobin (MCH) determination 30.4 pg 27.0-32.0 [facility] Mean corpuscular hemoglobin concentration (MCHC) determinationOrdered By: Alxe Kaur on 11-20-2024 Mean corpuscular hemoglobin concentration (MCHC) determination 32.1 g/dL 32-36 [facility] Mean platelet volume determi nationOrdered By: Alex Kaur on 11-20-2024 Mean platelet volume determination 9.1 fl 6.2-12.0 [facility] Monocyte percentageOrdered B y: Alex Kaur on 11-20-2024 Monocyte percentage 9.7 % 0-10 [facility] Neutrophil percentageOrdered By: Alex Kaur on 11-20-2024 Neutrophil percentage 57.2 % 47-70 [facility] No Panel InformationOrdered By: Alex Kaur on 11-20-2024 14 U/L Low 15-37 [facility] Nucleated red blood cell per centageOrdered By: Alex Kaur on 11-20-2024 Nucleated red blood cell percentage 0 % 0-5 [facility] Platelet countOrdered By: Benton Kaur on 11-20-2024 Platelet count 193 K/mm3 150-450 [facility] Potassium measurementOrdered By: Alex Kaur on 11-20-2024 Potassium measurement 4.4 mmol/L 3.5-5.1 [facility] RBC Auto (Bld) [#/Vol]Ordere d By: Alex Kaur on 11-20-2024 Automated blood erythrocyte count 3.78 M/mm3 Low 4.2-5.4 [facility] Serum anion gap measurementO rdered By: Alex Kaur on 11-20-2024 Serum anion gap measurement 2 Low 5-15 [facility] Serum globulin measurementOr dered By: Alex Kaur on 11-20-2024 Serum globulin measurement 3.4 g/dL 2.2-4.2 [facility] Sodium levelOrdered By: Alex Kaur on 11-20-2024 Sodium level 137 mmol/L 136-145 [facility] Total proteinOrdered By: Brooke Kaur on 11-20-2024 Total protein 6.3 g/dL Low 6.4-8.2 [facility] Troponin IOrdered By: lAex vidales on 11-20-2024 Troponin I 108 pg/mL High 3.0-54.0 [facility] Urea nitrogen [Mass/Vol]Orde red By: Alex Kaur on 11-20-2024 Serum or plasma urea nitrogen measurement (mass/volume) 23 mg/dL High 05-20 [facility] White blood cell (WBC) count Ordered By: Alex Kaur on 11-20-2024 White blood cell (WBC) count 7.7 K/mm3 4.4-11.0 [facility] Basic Metabolic Profile (BMP )on 11-04-2024 BUN Normal 05-20 [facility] Comment on above: Order Comment: 1Y Result Comment: PT. DISCHARGED Performed By: #### L 500.2500, L100.0100 ####[facility] [address] [place], [address] BUN/CRE Normal 10-20 [facility] Comment on above: Order Comment: 1Y Result Comment: PT. DISCHARGED Performed By: #### L 500.2500, L100.0100 ####[facility] [address] [place], [address] CA,Total Normal 8.5-10.1 [facility] Comment on above: Order Comment: 1Y Result Comment: PT. DISCHARGED Performed By: #### L 500.2500, L100.0100 ####[facility] [address] [place], [address] CL Normal 98-107 [facility] Comment on above: Order Comment: 1Y Result Comment: PT. DISCHARGED Performed By: #### L 500.2500, L100.0100 ####[facility] [address] [place], [address] CO2 Normal 21.0-32.0 [facility] Comment on above: Order Comment: 1Y Result Comment: PT. DISCHARGED Performed By: #### L 500.2500, L100.0100 ####[facility] [address] [place], [address] CREAT,SERUM Normal 0.55-1.02 [facility] Comment on above: Order Comment: 1Y Result Comment: PT. DISCHARGED Performed By: #### L 500.2500, L100.0100 ####[facility] [address] [place], [address] EST GFR Normal >60 [facility] Comment on above: Order Comment: 1Y Result Comment: PT. DISCHARGED Performed By: #### L 500.2500, L100.0100 ####[facility] [address] [place], [address] EST GFR - AA Normal >60 [facility] Comment on above: Order Comment: 1Y Result Comment: PT. DISCHARGED Performed By: #### L 500.2500, L100.0100 ####[facility] [address] [place], [address] GAP Normal 5-15 [facility] Comment on above: Order Comment: 1Y Result Comment: PT. DISCHARGED Performed By: #### L 500.2500, L100.0100 ####[facility] [address] [place], [address] GLU Normal 74-106 [facility] Comment on above: Order Comment: 1Y Result Comment: PT. DISCHARGED Performed By: #### L 500.2500, L100.0100 ####[facility] [address] [place], [address] Potassium Normal 3.5-5.1 [facility] Comment on above: Order Comment: 1Y Result Comment: PT. DISCHARGED Performed By: #### L 500.2500, L100.0100 ####[facility] [address] [place], [address] Basic Metabolic Profile (BMP) Normal 136-145 [facility] Comment on above: Order Comment: 1Y Result Comment: PT. DISCHARGED Performed By: #### L 500.2500, L100.0100 ####[facility] [address] [place], [address] CBC W/Diff, Automatedon 01-0 2-2024 Absolute Neut Normal 2.0-7.7 [facility] Comment on above: Result Comment: PT D ISCHARGED Performed By: #### L 500.2500, L100.0100 ####[facility] [address] [place], [address] HCT Normal 37-47 [facility] Comment on above: Result Comment: PT D ISCHARGED Performed By: #### L 500.2500, L100.0100 ####[facility] [address] [place], [address] HGB Normal 12.0-15.0 [facility] Comment on above: Result Comment: PT D ISCHARGED Performed By: #### L 500.2500, L100.0100 ####[facility] [address] [place], [address] MCH Normal 27.0-32.0 [facility] Comment on above: Result Comment: PT D ISCHARGED Performed By: #### L 500.2500, L100.0100 ####[facility] [address] [place], [address] MCHC Normal 32-36 [facility] Comment on above: Result Comment: PT D ISCHARGED Performed By: #### L 500.2500, L100.0100 ####[facility] [address] [place], [address] MCV Normal 81-99 [facility] Comment on above: Result Comment: PT D ISCHARGED Performed By: #### L 500.2500, L100.0100 ####[facility] [address] [place], [address] NEUT% Normal 47-70 [facility] Comment on above: Result Comment: PT D ISCHARGED Performed By: #### L 500.2500, L100.0100 ####[facility] [address] [place], [address] PLT Normal 150-450 [facility] Comment on above: Result Comment: PT D ISCHARGED Performed By: #### L 500.2500, L100.0100 ####[facility] [address] [place], [address] RBC Normal 4.2-5.4 [facility] Comment on above: Result Comment: PT D ISCHARGED Performed By: #### L 500.2500, L100.0100 ####[facility] [address] [place], [address] RDW CV Normal 11.6-14.6 [facility] Comment on above: Result Comment: PT D ISCHARGED Performed By: #### L 500.2500, L100.0100 ####[facility] [address] [place], [address] RDW SD Normal 35.1-43.9 [facility] Comment on above: Result Comment: PT D ISCHARGED Performed By: #### L 500.2500, L100.0100 ####[facility] [address] [place], [address] WBC Normal 4.4-11.0 [facility] Comment on above: Result Comment: PT D ISCHARGED Performed By: #### L 500.2500, L100.0100 ####[facility] [address] [place], [address] Pulmonary Visit Reporton Pulmonary Visit Report Normal [facility] Dialysis Vein Map PRE-OP ADEBAYO ATon 11-02-2024 Dialysis Vein Map PRE-OP BILAT Normal [facility] Chest without Contraston Chest without Contrast Normal [facility] Endocrinology Visit Reporton 10-07-2024 Endocrinology Visit Report Normal [facility] Progress Noteon 08-31-2024 Progress Note Patient seen by nc a t [facility]. Complete documentation including history with assessment and plan were documented in [facility] EMR. This encounter is for billing only. Normal [facility] Progress Noteon 08-27-2024 Progress Note Patient seen by nc a t [facility]. Complete documentation including history with assessment and plan were documented in [facility] EMR. This encounter is for billing only. [facility] Progress Noteon 08-25-2024 Progress Note Patient seen by nc a t [facility]. Complete documentation including history with assessment and plan were documented in [facility] EMR. This encounter is for billing only. [facility] 30on 08-24-[address] [facility] [id number] 08-24-2024 [id number] Normal [facility] [id number] Normal [facility] [id number] Discharge med list transmitted to RE[facility]- [facility] for return via Careport per TCC request. [facility] [id number] Auth obtained for SR H. SW messaged to set up transport, [employer] messaged to send orders and MAR. [facility] BASIC METABOLIC PANELon 10-2 Anion gap [Moles/Vol] 6 mmol/L Normal 3-13 [facility] Comment on above: Performed By: #### L AB113, LAB15, [id number] ####De Icer: MARY SOTELO ([id number])[facility])[address] [place] [address] Calcium [Mass/Vol] 7.3 mg/dL Low 8.4-10.4 [facility] Comment on above: Performed By: #### L AB113, LAB15, [id number] ####De Icer: MARY SOTELO ([id number])[facility])[address] [place] [address] Chloride [Moles/Vol] 100 mmol/L Normal 98-107 [facility] Comment on above: Performed By: #### L AB113, LAB15, [id number] ####De Icer: MARY SOTELO ([id number])[facility])[address] [place] [address] CO2 [Moles/Vol] 25 mmol/L Normal 22-30 [facility] Comment on above: Performed By: #### L AB113, LAB15, [id number] ####De Icer: MARY SOTELO ([id number])[facility])[address] [place] [address] Creatinine [Mass/Vol] 2.15 mg/dL High 0.52-1.04 [facility] Comment on above: Performed By: #### L AB113, LAB15, HMD095 ####De Icer: MARY SOTELO ([id number])[facility])[address] [place] [address] GLOMERULAR FILTRATION RATE ML/MIN/1.73 SQ M.PREDICTED 25.2 mL/min/1.73m*2 Low >60.0 [facility] Comment on above: Result Comment: Calc ulation based on the Chronic Kidney Disease Epidemiology Collaboration (CKD-EPI) equation refit without adjustment for race Performed By: #### Dora AB113, LAB15, [id number] ####De Icer: MARY SOTELO ([id number])[facility])[address] [place] [address] Glucose [Mass/Vol] 282 mg/dL High 70-100 [facility] Comment on above: Performed By: #### Dora ABGabbie, LAB15, [id number] ####De Icer: MARY SOTELO ([id number])[facility])[address] [place] [address] Potassium [Moles/Vol] 3.9 mmol/L Normal 3.5-5.1 [facility] Comment on above: Performed By: #### Dora ABGabbie, LAB15, [id number] ####De Icer: MARY SOTELO ([id number])[facility])[address] [place] [address] Sodium [Moles/Vol] 130 mmol/L Low 135-145 [facility] Comment on above: Performed By: #### Dora ABGabbie, LAB15, [id number] ####De Icer: MARY SOTELO ([phone])[facility])[address] [place] [address] [place] Urea nitrogen [Mass/Vol] 20 mg/dL High 7-17 [facility] Comment on above: Performed By: #### L AB113, LAB15, ZPT519 ####De Icer: MARY SOTELO ([id number])[facility])[address] [place] [address] Basic metabolic 1998 panelon 08-24-2024 Anion gap [Moles/Vol] 6 mmol/L 3 - 13 mmol/L [facility] Calcium [Mass/Vol] 7.3 mg/dL Low 8.4 - 10. 4 mg/dL [facility] Chloride [Moles/Vol] 100 mmol/L 98 - 10 7 mmol/L [facility] CO2 [Moles/Vol] 25 mmol/L 22 - 30 mmol/L [facility] Creatinine [Mass/Vol] 2.15 mg/dL High 0.52 - 1.04 mg/dL [facility] GFR/1.73 sq M.predicted (S/P/Bld) [Vol rate/Area] 25.2 mL/min Low - PINF [facility] Glucose [Mass/Vol] 282 mg/dL High 70 - 100 mg/dL [facility] Interpretation and review of laboratory results Abnormal [facility] Potassium [Moles/Vol] 3.9 mmol/L 3.5 - 5.1 mmol/L [facility] Sodium [Moles/Vol] 130 mmol/L Low 135 - 145 mmol/L [facility] Urea nitrogen [Mass/Vol] 20 mg/dL High 7 - 17 mg/dL [facility] CBC W Auto Differential pane l (Bld)on 08-24-2024 Basophils (Bld) [#/Vol] 0 10*3/uL 0.0 - 0.2 10*3/uL [facility] Basophils/100 WBC (Bld) 0.5 % 0.0 - 2.0 % [facility] Eosinophils (Bld) [#/Vol] 0.4 10*3/uL 0.0 - 0.5 10*3/uL [facility] Eosinophils/100 WBC (Bld) 7.2 % High 0.0 - 6.0 % [facility] Erythrocyte distribution width (RBC) [Ratio] 16.3 % High 11.5 - 15.0 % [facility] Hematocrit (Bld) [Volume fraction] 25.5 % Low 35.0 - 47.0 % [facility] Hemoglobin (Bld) [Mass/Vol] 8.2 g/dL Low 11.7 - 16.0 g/dL [facility] Immature granulocytes (Bld) [#/Vol] 0 10*3/uL NINF - 0.1 10*3/uL [facility] Immature granulocytes/100 WBC (Bld) 0.3 % 0.0 - 2.0 % [facility] Interpretation and review of laboratory results Abnormal [facility] Lymphocytes (Bld) [#/Vol] 1.1 10*3/uL 1.0 - 4.3 10*3/uL [facility] Lymphocytes/100 WBC (Bld) 18.6 % 15.0 - 45.0 % [facility] MCH (RBC) [Entitic mass] 29.1 pg 26.0 - 34.0 pg [facility] MCHC (RBC) [Mass/Vol] 32.2 % 30.5 - 36.0 % [facility] MCV (RBC) [Entitic vol] 90.4 fL 77.0 - 99.0 fL [facility] Monocytes (Bld) [#/Vol] 0.4 10*3/uL 0.0 - 0.9 10*3/uL [facility] Monocytes/100 WBC (Bld) 7.6 % 5.0 - 13.0 % [facility] Neutrophils (Bld) [#/Vol] 3.8 10*3/uL 1.8 - 7.5 10*3/uL [facility] Neutrophils/100 WBC (Bld) 65.8 % 38.0 - 82.0 % [facility] Nucleated RBC/100 WBC (Bld) [Ratio] 0 % [facility] Platelet mean volume (Bld) [Entitic vol] 10.6 fL 9.0 - 12.7 fL [facility] Platelets (Bld) [#/Vol] 198 10*3/uL 140 - 440 10*3/uL [facility] RBC (Bld) [#/Vol] 2.82 10*6/uL Low 3.80 - 5.2 0 10*6/uL [facility] WBC (Bld) [#/Vol] 5.8 10*3/uL 3.6 - 10.7 10*3/uL [facility] CBC WITH AUTO DIFFERENTIALon 08-24-2024 Basophils (Bld) [#/Vol] 0.0 10*3/uL Normal 0.0-0.2 [facility] Comment on above: Performed By: #### L [id number] ####De Icer: MARY SOTELO ([id number])[facility] ([address] Basophils/100 WBC (Bld) 0.5 % Normal 0.0-2.0 [facility] Comment on above: Performed By: #### L [id number] ####De Icer: MARY SOTELO ([id number])[facility])[address] [place] [address] Eosinophils (Bld) [#/Vol] 0.4 10*3/uL Normal 0.0-0.5 [facility] Comment on above: Performed By: #### L [id number] ####De Icer: MARY SOTELO ([id number])[facility])[address] [place] [address] Eosinophils/100 WBC (Bld) 7.2 % High 0.0-6.0 [facility] Comment on above: Performed By: #### L [id number] ####De Icer: MARY SOTELO ([id number])[facility])[address] [place] [address] Erythrocyte distribution width (RBC) [Ratio] 16.3 % High 11.5-15.0 [facility] Comment on above: Performed By: #### L [id number] ####De Icer: MARY SOTELO ([id number])[facility])[address] [place] [address] Hematocrit (Bld) [Volume fraction] 25.5 % Low 35.0-47.0 [facility] Comment on above: Performed By: #### L [id number] ####De Icer: MARY SOTELO ([id number])[facility])[address] [place] [address] Hemoglobin (Bld) [Mass/Vol] 8.2 g/dL Low 11.7-16.0 [facility] Comment on above: Performed By: #### L [id number] ####De Icer: MARY SOTELO ([id number])[facility])[address] [place] [address] IMMATURE GRANS % 0.3 % Normal 0.0-2.0 [facility] Comment on above: Performed By: #### L [id number] ####De Icer: MARY SOTELO ([id number])[facility])[address] [place] [address] IMMATURE GRANS ABSOLUTE 0.0 10*3/uL Normal <0.1 [facility] Comment on above: Performed By: #### L [id number] ####De Icer: MARY SOTELO ([id number])[facility])[address] [place] [address] Lymphocytes (Bld) [#/Vol] 1.1 10*3/uL Normal 1.0-4.3 [facility] Comment on above: Performed By: #### L [id number] ####De Icer: MARY SOTELO ([id number])[address] Lymphocytes/100 WBC (Bld) 18.6 % Normal 15.0-45.0 [facility] Comment on above: Performed By: #### L [id number] ####De Icer: MARY SOTELO ([id number])[facility])[address] [place] [address] MCH (RBC) [Entitic mass] 29.1 pg Normal 26.0-34.0 [facility] Comment on above: Performed By: #### L [id number] ####De Icer: MARY SOTELO ([id number])[address] MCHC 32.2 % Normal 30.5-36.0 [facility] Comment on above: Performed By: #### L [id number] ####De Icer: MARY SOTELO ([id number])[facility])[address] [place] [address] MCV (RBC) [Entitic vol] 90.4 fL Normal 77.0-99.0 [facility] Comment on above: Performed By: #### L [id number] ####De Icer: MARY SOTELO ([id number])[facility] ([facility])[address] [place] [address] Monocytes (Bld) [#/Vol] 0.4 10*3/uL Normal 0.0-0.9 [facility] Comment on above: Performed By: #### L [id number] ####De Icer: MARY SOTELO ([id number])[facility])[address] [place] [address] Monocytes/100 WBC (Bld) 7.6 % Normal 5.0-13.0 [facility] Comment on above: Performed By: #### L [id number] ####De Icer: MARY SOTELO ([id number])[facility])[address] [place] [address] NEUTROPHILS ABSOLUTE 3.8 10*3/uL Normal 1.8-7.5 [facility] Comment on above: Performed By: #### L [id number] ####De Icer: MARY SOTELO ([id number])[facility] ([facility])[address] [place] [address] Neutrophils/100 WBC (Bld) 65.8 % Normal 38.0-82.0 [facility] Comment on above: Performed By: #### L [id number] ####De Icer: MARY SOTELO ([id number])[facility])[address] [place] [address] NRBC 0.0 /100 WBCs Normal 0.0-2.0 [facility] Comment on above: Performed By: #### L [id number] ####De Icer: MARY SOTELO ([id number])[facility] ([facility])[address] [place] [address] Platelet mean volume (Bld) [Entitic vol] 10.6 fL Normal 9.0-12.7 [facility] Comment on above: Performed By: #### L [id number] ####De Icer: MARY SOTELO ([id number])[facility] ([facility])[address] [place] [address] Platelets (Bld) [#/Vol] 198 10*3/uL Normal 140-440 [facility] Comment on above: Performed By: #### L [id number] ####De Icer: MARY SOTELO ([id number])[facility] ([facility])[address] [place] [address] RBC (Bld) [#/Vol] 2.82 10*6/uL Low 3.80-5.20 [facility] Comment on above: Performed By: #### L [id number] ####De Icer: MARY SOTELO ([id number])[facility] ([facility])[address] [place] [address] WBC (Bld) [#/Vol] 5.8 10*3/uL Normal 3.6-10.7 [facility] Comment on above: Performed By: #### L [id number] ####De Icer: MARY SOTELO ([id number])[facility] ([facility])[address] [place] [address] Laboratory - Chemistry and C hemistry - challengeon 08-24-2024 Glucose [Mass/Vol] 293 mg/dL High 70 - 100 mg/dL [facility] Glucose [Mass/Vol] 219 mg/dL High 70 - 100 mg/dL [facility] Glucose [Mass/Vol] 277 mg/dL High 70 - 100 mg/dL [facility] Magnesium [Mass/Vol] 1.8 mg/dL 1.6 - 2 .3 mg/dL [facility] MAGNESIUMon 08-24-2024 Magnesium [Mass/Vol] 1.8 mg/dL Normal 1.6-2.3 [facility] Comment on above: Performed By: #### L AB113, LAB15, [id number] ####De Icer: MARY SOTELO ([id number])[facility] ([facility])[address] [place] [address] Magnesium [Mass/Vol]on 08-24 Interpretation and review of laboratory results Normal [facility] No Panel Informationon 08-24 Interpretation and review of laboratory results Abnormal [facility] Interpretation and review of laboratory results Abnormal [facility] Interpretation and review of laboratory results Abnormal [facility] PHOSPHORUSon 08-24-2024 Phosphate [Mass/Vol] 1.8 mg/dL Low 2.5-4.5 [facility] Comment on above: Performed By: #### L AB113, LAB15, [id number] ####De Icer: MARY SOTELO ([id number])[facility] [place] [address] [place] Phosphate [Moles/Vol]on 08-04 Interpretation and review of laboratory results Abnormal [facility] Phosphate [Mass/Vol] 1.8 mg/dL Low 2.5 - 4 .5 mg/dL [facility] Progress Noteon 08-24-2024 Progress Note Normal [facility] BASIC METABOLIC PANELon 08-04 Anion gap [Moles/Vol] 5 mmol/L Normal 3-13 [facility] Comment on above: Performed By: #### Dora AB15, [id number], [id number] ####De Icer: MARY SOTELO ([id number])[facility] [place] [address] [place] Calcium [Mass/Vol] 7.3 mg/dL Low 8.4-10.4 [facility] Comment on above: Performed By: #### Dora AB15, [id number], [id number] ####De Icer: MARY SOTELO ([id number])[facility] [place], [place] [address] [place] Chloride [Moles/Vol] 99 mmol/L Normal 98-107 [facility] Comment on above: Performed By: #### L AB15, [id number], [id number] ####De Icer: MARY SOTELO ([id number])[facility] ([facility])[address] [place] [address] [place] CO2 [Moles/Vol] 27 mmol/L Normal 22-30 [facility] Comment on above: Performed By: #### L AB15, [id number], [id number] ####De Icer: MARY SOTELO ([id number])[facility] ([facility])[address] Creatinine [Mass/Vol] 3.39 mg/dL High 0.52-1.04 [facility] Comment on above: Performed By: #### L AB15, [id number], [id number] ####De Icer: MARY SOTELO ([id number])[facility])[address] [place] [address] GLOMERULAR FILTRATION RATE ML/MIN/1.73 SQ M.PREDICTED 14.6 mL/min/1.73m*2 Low >60.0 [facility] Comment on above: Result Comment: Calc ulation based on the Chronic Kidney Disease Epidemiology Collaboration (CKD-EPI) equation refit without adjustment for race Performed By: #### Dora ABDante, [id number], [id number] ####De Icer: MARY SOTELO ([id number])[facility])[address] [place] [address] Glucose [Mass/Vol] 299 mg/dL High 70-100 [facility] Comment on above: Performed By: #### Dora AB15, [id number], [id number] ####De Icer: MARY SOTELO ([id number])[facility] ([facility])[address] [place] [address] Potassium [Moles/Vol] 4.0 mmol/L Normal 3.5-5.1 [facility] Comment on above: Performed By: #### Dora AB15, [id number], [id number] ####De Icer: MARY SOTELO ([id number])[facility] ([facility])[address] [place] [address] [place] Sodium [Moles/Vol] 130 mmol/L Low 135-145 [facility] Comment on above: Performed By: #### L AB15, [id number], [id number] ####De Icer: MARY SOTELO ([id number])[facility])[address] [place] [address] [place] Urea nitrogen [Mass/Vol] 37 mg/dL High 7-17 [facility] Comment on above: Performed By: #### L AB15, [id number], [id number] ####De Icer: MARY SOTELO ([id number])[facility] ([facility])[address] Bacteria identified Cx Nom ( U)Ordered By: Kalia Gifford on 08-23-2024 Interpretation and review of laboratory results Abnormal [facility] Basic metabolic 1998 panelon 08-23-2024 Anion gap [Moles/Vol] 5 mmol/L 3 - 13 mmol/L [facility] Calcium [Mass/Vol] 7.3 mg/dL Low 8.4 - 10. 4 mg/dL [facility] Chloride [Moles/Vol] 99 mmol/L 98 - 10 7 mmol/L [facility] CO2 [Moles/Vol] 27 mmol/L 22 - 30 mmol/L [facility] Creatinine [Mass/Vol] 3.39 mg/dL High 0.52 - 1.04 mg/dL [facility] GFR/1.73 sq M.predicted (S/P/Bld) [Vol rate/Area] 14.6 mL/min Low - PINF [facility] Glucose [Mass/Vol] 299 mg/dL High 70 - 100 mg/dL [facility] Interpretation and review of laboratory results Abnormal [facility] Potassium [Moles/Vol] 4 mmol/L 3.5 - 5.1 mmol/L [facility] Sodium [Moles/Vol] 130 mmol/L Low 135 - 145 mmol/L [facility] Urea nitrogen [Mass/Vol] 37 mg/dL High 7 - 17 mg/dL [facility] CARECOORDon 08-23-2024 CARECOORD Normal [facility] CBC W Auto Differential pane l (Bld)on 08-23-2024 Basophils (Bld) [#/Vol] 0 10*3/uL 0.0 - 0.2 10*3/uL [facility] Basophils/100 WBC (Bld) 0.2 % 0.0 - 2.0 % [facility] Eosinophils (Bld) [#/Vol] 0.1 10*3/uL 0.0 - 0.5 10*3/uL [facility] Eosinophils/100 WBC (Bld) 1.1 % 0.0 - 6.0 % [facility] Erythrocyte distribution width (RBC) [Ratio] 15.9 % High 11.5 - 15.0 % [facility] Hematocrit (Bld) [Volume fraction] 25.5 % Low 35.0 - 47.0 % [facility] Hemoglobin (Bld) [Mass/Vol] 8.2 g/dL Low 11.7 - 16.0 g/dL [facility] Immature granulocytes (Bld) [#/Vol] 0 10*3/uL NINF - 0.1 10*3/uL [facility] Immature granulocytes/100 WBC (Bld) 0.5 % 0.0 - 2.0 % [facility] Interpretation and review of laboratory results Abnormal [facility] Lymphocytes (Bld) [#/Vol] 0.6 10*3/uL Low 1.0 - 4.3 10*3/uL [facility] Lymphocytes/100 WBC (Bld) 14.6 % Low 15.0 - 45.0 % [facility] MCH (RBC) [Entitic mass] 28.9 pg 26.0 - 34.0 pg [facility] MCHC (RBC) [Mass/Vol] 32.2 % 30.5 - 36.0 % [facility] MCV (RBC) [Entitic vol] 89.8 fL 77.0 - 99.0 fL [facility] Monocytes (Bld) [#/Vol] 0.3 10*3/uL 0.0 - 0.9 10*3/uL [facility] Monocytes/100 WBC (Bld) 7.3 % 5.0 - 13.0 % [facility] Neutrophils (Bld) [#/Vol] 3.4 10*3/uL 1.8 - 7.5 10*3/uL [facility] Neutrophils/100 WBC (Bld) 76.3 % 38.0 - 82.0 % [facility] Nucleated RBC/100 WBC (Bld) [Ratio] 0 % [facility] Platelet mean volume (Bld) [Entitic vol] 10.4 fL 9.0 - 12.7 fL [facility] Platelets (Bld) [#/Vol] 167 10*3/uL 140 - 440 10*3/uL [facility] RBC (Bld) [#/Vol] 2.84 10*6/uL Low 3.80 - 5.2 0 10*6/uL [facility] WBC (Bld) [#/Vol] 4.4 10*3/uL 3.6 - 10.7 10*3/uL [facility] CBC WITH AUTO DIFFERENTIALon 08-23-2024 Basophils (Bld) [#/Vol] 0.0 10*3/uL Normal 0.0-0.2 [facility] Comment on above: Performed By: #### L [id number] ####De Icer: MARY SOTELO ([id number])[facility] ([facility])[address] [place] [address] Basophils/100 WBC (Bld) 0.2 % Normal 0.0-2.0 [facility] Comment on above: Performed By: #### L [id number] ####De Icer: MARY SOTELO ([id number])[facility])[address] [place] [address] Eosinophils (Bld) [#/Vol] 0.1 10*3/uL Normal 0.0-0.5 [facility] Comment on above: Performed By: #### L [id number] ####De Icer: MARY SOTELO ([id number])[facility])[address] [place] [address] Eosinophils/100 WBC (Bld) 1.1 % Normal 0.0-6.0 [facility] Comment on above: Performed By: #### L [id number] ####De Icer: MARY SOTELO ([id number])[facility])[address] [place] [address] Erythrocyte distribution width (RBC) [Ratio] 15.9 % High 11.5-15.0 [facility] Comment on above: Performed By: #### L [id number] ####De Icer: MARY SOTELO ([id number])[facility])[address] [place] [address] Hematocrit (Bld) [Volume fraction] 25.5 % Low 35.0-47.0 [facility] Comment on above: Performed By: #### L [id number] ####De Icer: MARY SOTELO ([id number])[facility])[address] [place] [address] Hemoglobin (Bld) [Mass/Vol] 8.2 g/dL Low 11.7-16.0 [facility] Comment on above: Performed By: #### L [id number] ####De Icer: MARY SOTELO ([id number])[facility])[address] [place] [address] IMMATURE GRANS % 0.5 % Normal 0.0-2.0 [facility] Comment on above: Performed By: #### L [id number] ####De Icer: MARY SOTELO ([id number])[facility])[address] [place] [address] IMMATURE GRANS ABSOLUTE 0.0 10*3/uL Normal <0.1 [facility] Comment on above: Performed By: #### L [id number] ####De Icer: MARY SOTELO ([id number])[address] Lymphocytes (Bld) [#/Vol] 0.6 10*3/uL Low 1.0-4.3 [facility] Comment on above: Performed By: #### L [id number] ####De Icer: MARY SOTELO ([id number])[address] Lymphocytes/100 WBC (Bld) 14.6 % Low 15.0-45.0 [facility] Comment on above: Performed By: #### L [id number] ####De Icer: MARY SOTELO ([id number])[facility])[address] [place] [address] MCH (RBC) [Entitic mass] 28.9 pg Normal 26.0-34.0 [facility] Comment on above: Performed By: #### L [id number] ####De Icer: MARY SOTELO ([id number])[address] MCHC 32.2 % Normal 30.5-36.0 [facility] Comment on above: Performed By: #### L [id number] ####De Icer: MARY SOTELO ([id number])[facility] ([facility])[address] [place] [address] MCV (RBC) [Entitic vol] 89.8 fL Normal 77.0-99.0 [facility] Comment on above: Performed By: #### L [id number] ####De Icer: MARY SOTELO ([id number])[facility] ([facility])[address] [place] [address] Monocytes (Bld) [#/Vol] 0.3 10*3/uL Normal 0.0-0.9 [facility] Comment on above: Performed By: #### L [id number] ####De Icer: MARY SOTELO ([id number])[facility] ([facility])[address] [place] [address] Monocytes/100 WBC (Bld) 7.3 % Normal 5.0-13.0 [facility] Comment on above: Performed By: #### L [id number] ####De Icer: MARY SOTELO ([id number])[facility] ([facility])[address] [place] [address] NEUTROPHILS ABSOLUTE 3.4 10*3/uL Normal 1.8-7.5 [facility] Comment on above: Performed By: #### L [id number] ####De Icer: MARY SOTELO ([id number])[facility] ([facility])[address] [place] [address] Neutrophils/100 WBC (Bld) 76.3 % Normal 38.0-82.0 [facility] Comment on above: Performed By: #### L [id number] ####De Icer: MARY SOTELO ([id number])[facility] ([facility])[address] [place] [address] NRBC 0.0 /100 WBCs Normal 0.0-2.0 [facility] Comment on above: Performed By: #### L [id number] ####De Icer: MARY SOTELO ([id number])[facility] ([facility])[address] [place] [address] Platelet mean volume (Bld) [Entitic vol] 10.4 fL Normal 9.0-12.7 [facility] Comment on above: Performed By: #### L [id number] ####De Icer: MARY SOTELO ([id number])[facility] ([facility])[address] [place] [address] Platelets (Bld) [#/Vol] 167 10*3/uL Normal 140-440 [facility] Comment on above: Performed By: #### L [id number] ####De Icer: MARY SOTELO ([id number])[facility] ([facility])[address] [place] [address] RBC (Bld) [#/Vol] 2.84 10*6/uL Low 3.80-5.20 [facility] Comment on above: Performed By: #### L [id number] ####De Icer: MARY SOTELO ([id number])[facility] ([facility])[address] [place] [address] WBC (Bld) [#/Vol] 4.4 10*3/uL Normal 3.6-10.7 [facility] Comment on above: Performed By: #### L [id number] ####De Icer: AMRY SOTELO ([id number])[facility])[address] [place] [address] Consulton 08-23-2024 Consult Normal [facility] HBV surface Ab IA Qnon 08-23 [facility] HBV surface Ag IA Qlon 08-23 Interpretation and review of laboratory results Normal [facility] HEPATITIS B SURFACE ANTIBODY on 08-23-2024 HEPATITIS B VIRUS SURFACE AB <8.0 Normal [facility] Comment on above: Result Comment: BINA Olivarez COMMENTS:Interpretation:<8.0 Non-Reactive8.0-11.9 Equivocal>= 12.0 Ab DetectedNote: If an equivocal result is interpreted, an antibody status is unable to be determined. Collect new specimen if clinically indicated. Performed By: #### L [id number], [id number] ####De Icer: MARY SOTELO ([id number])[facility] ([facility])[address] [place] [address] HEPATITIS B SURFACE ANTIGENo n 08-23-2024 HEPATITIS B VIRUS SURFACE AG Not detected Normal Not Detected [facility] Comment on above: Performed By: #### L [id number], [id number] ####De Icer: MARY SOTELO ([id number])[facility] [place] [address] [place] IDNon 08-23-2024 IDN Normal [facility] IDN Normal [facility] Laboratory - Chemistry and C hemistry - challengeon 08-23-2024 Glucose [Mass/Vol] 126 mg/dL High 70 - 100 mg/dL [facility] Glucose [Mass/Vol] 166 mg/dL High 70 - 100 mg/dL [facility] Glucose [Mass/Vol] 129 mg/dL High 70 - 100 mg/dL [facility] Glucose [Mass/Vol] 287 mg/dL High 70 - 100 mg/dL [facility] Glucose [Mass/Vol] 304 mg/dL High 70 - 100 mg/dL [facility] Magnesium [Mass/Vol] 1.9 mg/dL 1.6 - 2 .3 mg/dL [facility] Laboratory - Microbiology an d Antimicrobial susceptibilityon 08-23-2024 HBV surface Ab IA Qn mIU/mL [facility] HBV surface Ag IA Ql Not detected Not Detected [facility] Laboratory - Microbiology an d Antimicrobial susceptibilityOrdered By: Kalia Gifford on 08-23-2024 Bacteria identified Cx Nom (U) Normal urogenital keven present [facility] Bacteria identified Cx Nom (U) 50,000-90,000 CFU/mL Abbi albicans Abnormal [facility] MAGNESIUMon 08-23-2024 Magnesium [Mass/Vol] 1.9 mg/dL Normal 1.6-2.3 [facility] Comment on above: Performed By: #### L AB15, [id number], [id number] ####De Icer: MARY SOTELO ([id number])[facility] [place] [address] No Panel Informationon 08-23 Interpretation and review of laboratory results Abnormal [facility] Interpretation and review of laboratory results Abnormal [facility] Interpretation and review of laboratory results Abnormal [facility] Interpretation and review of laboratory results Abnormal [facility] Interpretation and review of laboratory results Abnormal [facility] Interpretation and review of laboratory results Normal [facility] Nursing Noteon 08-23-2024 Nursing Note Normal [facility] PHOSPHORUSon 08-23-2024 Phosphate [Mass/Vol] 2.5 mg/dL Normal 2.5-4.5 [facility] Comment on above: Performed By: #### L AB15, [id number], [id number] ####De Icer: MARY SOTELO ([id number])[facility])[address] [place] [address] [place] Phosphate [Moles/Vol]on 08-04 Phosphate [Mass/Vol] 2.5 mg/dL 2.5 - 4 .5 mg/dL [facility] Progress Noteon 08-23-2024 Progress Note Normal [facility] Progress Note Normal [facility] Progress Note Normal [facility] Progress Note Normal [facility] US Kidneyon 08-23-2024 [facility] Radiology Study observation (narrative) [facility] US KidneyOrdered By: Daniel esquivel on 08-23-2024 [facility] Work Phone: US RENAL COMPLETEon 08-23-20 US RENAL COMPLETE Normal [facility]alt System [facility] BASIC METABOLIC PANELon 08-04 Anion gap [Moles/Vol] 5 mmol/L Normal 3-13 [facility] Comment on above: Performed By: #### L [id number], LAB15, [id number] ####De Icer: MARY SOTELO ([id number])[facility] ([facility])[address] [place] [address] [place] Calcium [Mass/Vol] 7.3 mg/dL Low 8.4-10.4 [facility] Comment on above: Performed By: #### L AB103, LAB15, [id number] ####De Icer: MARY SOTELO ([id number])[facility] [place] [address] Chloride [Moles/Vol] 97 mmol/L Low 98-107 [facility] Comment on above: Performed By: #### L AB103, LAB15, [id number] ####De Icer: MARY SOTELO ([id number])[facility] [place] [address] CO2 [Moles/Vol] 28 mmol/L Normal 22-30 [facility] Comment on above: Performed By: #### L AB103, LAB15, [id number] ####De Icer: MARY SOTELO ([id number])[facility] ([facility])[address] [place] [address] Creatinine [Mass/Vol] 3.04 mg/dL High 0.52-1.04 [facility] Comment on above: Performed By: #### Dora SONG, LAB15, [id number] ####De Icer: MARY SOTELO ([id number])[facility] ([facility])[address] [place] [address] GLOMERULAR FILTRATION RATE ML/MIN/1.73 SQ M.PREDICTED 16.6 mL/min/1.73m*2 Low >60.0 [facility] Comment on above: Result Comment: Calc ulation based on the Chronic Kidney Disease Epidemiology Collaboration (CKD-EPI) equation refit without adjustment for race Performed By: #### L NOHEMI, LAB15, [id number] ####De Icer: MARY SOTELO ([id number])[facility] ([facility])[address] [place] [address] [place] Glucose [Mass/Vol] 309 mg/dL High 70-100 [facility] Comment on above: Performed By: #### L AB103, LAB15, [id number] ####De Icer: MARY SOTELO ([id number])[facility])[address] [place] [address] Potassium [Moles/Vol] 3.4 mmol/L Low 3.5-5.1 [facility] Comment on above: Performed By: #### L AB103, LAB15, [id number] ####De Icer: MARY SOTELO ([id number])[facility] ([facility])[address] [place] [address] Sodium [Moles/Vol] 130 mmol/L Low 135-145 [facility] Comment on above: Performed By: #### L AB103, LAB15, [id number] ####De Icer: MARY SOTELO ([id number])[facility] ([facility])[address] [place] [address] Urea nitrogen [Mass/Vol] 28 mg/dL High 7-17 [facility] Comment on above: Performed By: #### L AB103, LAB15, [id number] ####De Icer: MARY SOTELO ([id number])[facility] ([facility])[address] [place] [address] Basic metabolic 1998 panelon 08-22-2024 Anion gap [Moles/Vol] 5 mmol/L 3 - 13 mmol/L [facility] Calcium [Mass/Vol] 7.3 mg/dL Low 8.4 - 10. 4 mg/dL [facility] Chloride [Moles/Vol] 97 mmol/L Low 98 - 10 7 mmol/L [facility] CO2 [Moles/Vol] 28 mmol/L 22 - 30 mmol/L [facility] Creatinine [Mass/Vol] 3.04 mg/dL High 0.52 - 1.04 mg/dL [facility] GFR/1.73 sq M.predicted (S/P/Bld) [Vol rate/Area] 16.6 mL/min Low - PINF [facility] Glucose [Mass/Vol] 309 mg/dL High 70 - 100 mg/dL [facility] Interpretation and review of laboratory results Abnormal [facility] Potassium [Moles/Vol] 3.4 mmol/L Low 3.5 - 5.1 mmol/L [facility] Sodium [Moles/Vol] 130 mmol/L Low 135 - 145 mmol/L [facility] Urea nitrogen [Mass/Vol] 28 mg/dL High 7 - 17 mg/dL [facility] CALCIUM, IONIZEDon CALCIUM IONIZED 3.90 mg/dL Low 4.30-5.20 [facility] Comment on above: Performed By: #### L AB54 ####De Icer: MARY SOTELO ([id number])[facility] ([facility])[address] [place] [address] PH, IONIZED CALCIUM 7.42 Normal 7.31-7.46 [facility] Comment on above: Performed By: #### L AB54 ####De Icer: MARY SOTELO ([id number])[facility] ([facility])[address] [place] [address] CBC W Auto Differential pane l (Bld)on 08-22-2024 Basophils (Bld) [#/Vol] 0 10*3/uL 0.0 - 0.2 10*3/uL [facility] Basophils/100 WBC (Bld) 0.4 % 0.0 - 2.0 % [facility] Eosinophils (Bld) [#/Vol] 0.4 10*3/uL 0.0 - 0.5 10*3/uL [facility] Eosinophils/100 WBC (Bld) 7.7 % High 0.0 - 6.0 % [facility] Erythrocyte distribution width (RBC) [Ratio] 16.2 % High 11.5 - 15.0 % [facility] Hematocrit (Bld) [Volume fraction] 26.6 % Low 35.0 - 47.0 % [facility] Hemoglobin (Bld) [Mass/Vol] 8.6 g/dL Low 11.7 - 16.0 g/dL [facility] Immature granulocytes (Bld) [#/Vol] 0 10*3/uL NINF - 0.1 10*3/uL [facility] Immature granulocytes/100 WBC (Bld) 0.4 % 0.0 - 2.0 % [facility] Interpretation and review of laboratory results Abnormal [facility] Lymphocytes (Bld) [#/Vol] 0.9 10*3/uL Low 1.0 - 4.3 10*3/uL [facility] Lymphocytes/100 WBC (Bld) 18.2 % 15.0 - 45.0 % [facility] MCH (RBC) [Entitic mass] 29.8 pg 26.0 - 34.0 pg [facility] MCHC (RBC) [Mass/Vol] 32.3 % 30.5 - 36.0 % [facility] MCV (RBC) [Entitic vol] 92 fL 77.0 - 99.0 fL [facility] Monocytes (Bld) [#/Vol] 0.4 10*3/uL 0.0 - 0.9 10*3/uL [facility] Monocytes/100 WBC (Bld) 7.9 % 5.0 - 13.0 % [facility] Neutrophils (Bld) [#/Vol] 3.1 10*3/uL 1.8 - 7.5 10*3/uL [facility] Neutrophils/100 WBC (Bld) 65.4 % 38.0 - 82.0 % [facility] Nucleated RBC/100 WBC (Bld) [Ratio] 0 % [facility] Platelet mean volume (Bld) [Entitic vol] 10.1 fL 9.0 - 12.7 fL [facility] Platelets (Bld) [#/Vol] 161 10*3/uL 140 - 440 10*3/uL [facility] RBC (Bld) [#/Vol] 2.89 10*6/uL Low 3.80 - 5.2 0 10*6/uL [facility] WBC (Bld) [#/Vol] 4.8 10*3/uL 3.6 - 10.7 10*3/uL [facility] CBC WITH AUTO DIFFERENTIALon 08-22-2024 Basophils (Bld) [#/Vol] 0.0 10*3/uL Normal 0.0-0.2 [facility] Comment on above: Performed By: #### L [id number] ####De Icer: MARY SOTELO ([id number])[address] Basophils/100 WBC (Bld) 0.4 % Normal 0.0-2.0 [facility] Comment on above: Performed By: #### L [id number] ####De Icer: MARY SOTELO ([id number])[facility])[address] [place] [address] Eosinophils (Bld) [#/Vol] 0.4 10*3/uL Normal 0.0-0.5 [facility] Comment on above: Performed By: #### L [id number] ####De Icer: MARY SOTELO ([id number])[facility] [place])[address] [place] [address] Eosinophils/100 WBC (Bld) 7.7 % High 0.0-6.0 [facility] Comment on above: Performed By: #### L [id number] ####De Icer: MARY SOTELO ([id number])[facility] [place])[address] [place] [address] Erythrocyte distribution width (RBC) [Ratio] 16.2 % High 11.5-15.0 [facility] Comment on above: Performed By: #### L [id number] ####De Icer: MARY SOTELO ([id number])[address] Hematocrit (Bld) [Volume fraction] 26.6 % Low 35.0-47.0 [facility] Comment on above: Performed By: #### L [id number] ####De Icer: MARY SOTELO ([id number])[facility] [place])[address] [place] [address] Hemoglobin (Bld) [Mass/Vol] 8.6 g/dL Low 11.7-16.0 [facility] Comment on above: Performed By: #### L [id number] ####De Icer: MARY SOTELO ([id number])[facility] [place])[address] [place] [address] IMMATURE GRANS % 0.4 % Normal 0.0-2.0 [facility] Comment on above: Performed By: #### L [id number] ####De Icer: MARY SOTELO ([id number])[address] IMMATURE GRANS ABSOLUTE 0.0 10*3/uL Normal <0.1 [facility] Comment on above: Performed By: #### L [id number] ####De Icer: MARY SOTELO ([id number])[facility] [place])[address] [place] [address] Lymphocytes (Bld) [#/Vol] 0.9 10*3/uL Low 1.0-4.3 [facility] Comment on above: Performed By: #### L [id number] ####De Icer: MARY SOTELO ([id number])[facility] [place])[address] [place] [address] Lymphocytes/100 WBC (Bld) 18.2 % Normal 15.0-45.0 [facility] Comment on above: Performed By: #### L [id number] ####De Icer: MARY SOTELO ([id number])[facility] [place])[address] [place] [address] MCH (RBC) [Entitic mass] 29.8 pg Normal 26.0-34.0 [facility] Comment on above: Performed By: #### L [id number] ####De Icer: MARY SOTELO ([id number])[facility] [place])[address] [place] [address] MCHC 32.3 % Normal 30.5-36.0 [facility] Comment on above: Performed By: #### L [id number] ####De Icer: MARY SOTELO ([id number])[facility] [place])[address] [place] [address] MCV (RBC) [Entitic vol] 92.0 fL Normal 77.0-99.0 [facility] Comment on above: Performed By: #### L [id number] ####De Icer: MARY SOTELO ([id number])[facility] [place])[address] [place] [address] Monocytes (Bld) [#/Vol] 0.4 10*3/uL Normal 0.0-0.9 [facility] Comment on above: Performed By: #### L [id number] ####De Icer: MARY SOTELO ([id number])[facility] [place])[address] [place] [address] Monocytes/100 WBC (Bld) 7.9 % Normal 5.0-13.0 [facility] Comment on above: Performed By: #### L [id number] ####De Icer: MARY SOTELO ([id number])[facility] ([facility])[address] [place] [address] NEUTROPHILS ABSOLUTE 3.1 10*3/uL Normal 1.8-7.5 [facility] Comment on above: Performed By: #### L [id number] ####De Icer: MARY SOTELO ([id number])[facility] ([facility])[address] [place] [address] Neutrophils/100 WBC (Bld) 65.4 % Normal 38.0-82.0 [facility] Comment on above: Performed By: #### L [id number] ####De Icer: MARY SOTELO ([id number])[facility] ([facility])[address] [place] [address] NRBC 0.0 /100 WBCs Normal 0.0-2.0 [facility] Comment on above: Performed By: #### L [id number] ####De Icer: MARY SOTELO ([id number])[facility] ([facility])[address] [place] [address] Platelet mean volume (Bld) [Entitic vol] 10.1 fL Normal 9.0-12.7 [facility] Comment on above: Performed By: #### L [id number] ####De Icer: MARY SOTELO ([id number])[facility] ([facility])[address] [place] [address] Platelets (Bld) [#/Vol] 161 10*3/uL Normal 140-440 [facility] Comment on above: Performed By: #### L [id number] ####De Icer: MARY SOTELO ([id number])[facility] ([facility])[address] [place] [address] RBC (Bld) [#/Vol] 2.89 10*6/uL Low 3.80-5.20 [facility] Comment on above: Performed By: #### L [id number] ####De Icer: MARY SOTELO ([id number])[facility] ([facility])[address] [place] [address] WBC (Bld) [#/Vol] 4.8 10*3/uL Normal 3.6-10.7 [facility] Comment on above: Performed By: #### L [id number] ####De Icer: MARY SOTELO ([id number])[facility] [place] [address] Calcium.ionized [Moles/Vol]o n 08-22-2024 Calcium.ionized (Bld) [Moles/Vol] 3.9 mg/dL Low 4.30 - 5.20 mg/dL [facility] Interpretation and review of laboratory results Abnormal [facility] PH, IONIZED CALCIUM 7.42 7.31 - 7.46 [facility] IDNon 08-22-2024 IDN Normal [facility] - Chemistry and C hemistry - challengeon 08-22-2024 Glucose [Mass/Vol] 257 mg/dL High 70 - 100 mg/dL [facility] Glucose [Mass/Vol] 255 mg/dL High 70 - 100 mg/dL [facility] Glucose [Mass/Vol] 287 mg/dL High 70 - 100 mg/dL [facility] Glucose [Mass/Vol] 310 mg/dL High 70 - 100 mg/dL [facility] Magnesium [Mass/Vol] 2 mg/dL 1.6 - 2 .3 mg/dL [facility] MAGNESIUMon 08-22-2024 Magnesium [Mass/Vol] 2.0 mg/dL Normal 1.6-2.3 [facility] Comment on above: Performed By: #### L [id number], LAB15, [id number] ####De Icer: MARY SOTELO ([id number])[facility] ([facility])[address] [place] [address] Magnesium [Mass/Vol]on 08-22 Interpretation and review of laboratory results Normal [facility] No Panel Informationon 08-22 Interpretation and review of laboratory results Abnormal [facility] Interpretation and review of laboratory results Abnormal [facility] Interpretation and review of laboratory results Abnormal [facility] Interpretation and review of laboratory results Abnormal [facility] PHOSPHORUSon 08-22-2024 Phosphate [Mass/Vol] 2.3 mg/dL Low 2.5-4.5 [facility] Comment on above: Performed By: #### L AB103, LAB15, [id number] ####De Icer: MARY SOTELO ([id number])[facility] [place])[address] [place] [address] [place] Phosphate [Moles/Vol]on 08-04 Interpretation and review of laboratory results Abnormal [facility] Phosphate [Mass/Vol] 2.3 mg/dL Low 2.5 - 4 .5 mg/dL [facility] Progress Noteon 08-22-2024 Progress Note Normal [facility] Progress Note Normal [facility] BASIC METABOLIC PANELon 08-03 Anion gap [Moles/Vol] 7 mmol/L Normal 3-13 [facility] Comment on above: Performed By: #### L AB113, LAB15, [id number] ####De Icer: MARY SOTELO ([id number])[facility] ([facility])[address] [place] [address] [place] Calcium [Mass/Vol] 7.8 mg/dL Low 8.4-10.4 [facility] Comment on above: Performed By: #### L AB113, LAB15, [id number] ####De Icer: MARY SOTELO ([id number])[facility] ([facility])[address] [place] [address] [place] Chloride [Moles/Vol] 99 mmol/L Normal 98-107 [facility] Comment on above: Performed By: #### L AB113, LAB15, [id number] ####De Icer: MARY SOTELO ([id number])[facility] [place])[address] [place] [address] [place] CO2 [Moles/Vol] 27 mmol/L Normal 22-30 [facility] Comment on above: Performed By: #### L AB113, LAB15, [id number] ####De Icer: MARY SOTELO ([id number])[facility] [place])[address] [place] [address] Creatinine [Mass/Vol] 4.52 mg/dL High 0.52-1.04 [facility] Comment on above: Performed By: #### L AB113, LAB15, [id number] ####De Icer: MARY SOTELO ([id number])[facility] [place])[address] [place] [address] GLOMERULAR FILTRATION RATE ML/MIN/1.73 SQ M.PREDICTED 10.3 mL/min/1.73m*2 Low >60.0 [facility] Comment on above: Result Comment: Calc ulation based on the Chronic Kidney Disease Epidemiology Collaboration (CKD-EPI) equation refit without adjustment for race Performed By: #### L AB113, LAB15, [id number] ####De Icer: MARY SOTELO ([id number])[facility] ([facility])[address] [place] [address] Glucose [Mass/Vol] 73 mg/dL Normal 70-100 [facility] Comment on above: Performed By: #### L AB113, LAB15, [id number] ####De Icer: MARY SOTELO ([id number])[facility] [place])[address] [place] [address] Potassium [Moles/Vol] 3.2 mmol/L Low 3.5-5.1 [facility] Comment on above: Performed By: #### L AB113, LAB15, [id number] ####De Icer: MARY SOTELO ([id number])[facility] ([facility])[address] [place] [address] [place] Sodium [Moles/Vol] 133 mmol/L Low 135-145 [facility] Comment on above: Performed By: #### L AB113, LAB15, [id number] ####De Icer: MARY SOTELO ([id number])[facility] [place])[address] [place] [address] [place] Urea nitrogen [Mass/Vol] 47 mg/dL High 7-17 [facility] Comment on above: Performed By: #### L AB113, LAB15, [id number] ####De Icer: MARY SOTELO ([id number])[facility] ([facility])[address] [place] [address] BLOOD GAS ARTERIALon 10-19-2 024 Base excess Calc (Bld) [Moles/Vol] 3.2 mmol/L High -3.0-3.0 [facility] Comment on above: Performed By: #### L [id number] ####De Icer: MARY SOTELO ([id number])[facility] ([facility])[address] [place] [address] CO2 [Moles/Vol] 30.8 mmol/L High 23.0-27.0 [facility] Comment on above: Performed By: #### L [id number] ####De Icer: MARY SOTELO ([id number])[facility] ([facility])[address] [place] [address] HCO3 (Bld) [Moles/Vol] 29.2 mmol/L High 21.0-25.0 [facility] Comment on above: Performed By: #### L [id number] ####De Icer: MARY SOTELO ([id number])[facility] ([facility])[address] [place] [address] Hemoglobin (Bld) [Mass/Vol] 10.2 g/dL Normal Screen only [facility] Comment on above: Performed By: #### L [id number] ####De Icer: MARY SOTELO ([id number])[facility] ([facility])[address] [place] [address] OXYGEN SATURATION (%) IN ARTERIAL BLOOD 96.1 % Normal 95.0-100.0 [facility] Comment on above: Performed By: #### L [id number] ####De Icer: MARY SOTELO ([id number])[facility] ([facility])[address] [place] [address] PCO2 ARTERIAL 51.3 mm Hg High >35.0-<45.0 [facility] Comment on above: Performed By: #### L [id number] ####De Icer: MARY SOTELO ([id number])[facility] ([facility])[address] [place] [address] PH ARTERIAL 7.373 Normal 7.350-7.450 [facility] Comment on above: Performed By: #### L [id number] ####De Icer: MARY SOTELO ([id number])[facility] ([facility])[address] [place] [address] PO2 ARTERIAL 85.9 mm Hg Normal 80.0-100.0 [facility] Comment on above: Performed By: #### L [id number] ####De Icer: MARY SOTELO ([id number])[facility] [place])[address] [place] [address] SOURCE OF OXYGEN CPAP Normal [facility] Comment on above: Result Comment: 30% Performed By: #### L [id number] ####De Icer: MARY SOTELO ([id number])[facility] ([facility])[address] [place] [address] Base excess Calc (Bld) [Moles/Vol] 0.4 mmol/L Normal -3.0-3.0 [facility] Comment on above: Performed By: #### L [id number] ####De Icer: MARY SOTELO ([id number])[facility] ([facility])[address] [place] [address] CO2 [Moles/Vol] 29.5 mmol/L High 23.0-27.0 [facility] Comment on above: Performed By: #### L [id number] ####De Icer: MARY SOTELO ([id number])[facility] ([facility])[address] [place] [address] HCO3 (Bld) [Moles/Vol] 27.7 mmol/L High 21.0-25.0 [facility] Comment on above: Performed By: #### L [id number] ####De Icer: MARY SOTELO ([id number])[facility] ([facility])[address] [place] [address] Hemoglobin (Bld) [Mass/Vol] 9.8 g/dL Normal Screen only [facility] Comment on above: Performed By: #### L [id number] ####De Icer: MARY SOTELO ([id number])[facility] ([facility])[address] [place] [address] OXYGEN SATURATION (%) IN ARTERIAL BLOOD 96.6 % Normal 95.0-100.0 [facility] Comment on above: Performed By: #### L [id number] ####De Icer: MARY SOTELO ([id number])[facility] ([facility])[address] [place] [address] PCO2 ARTERIAL 59.5 mm Hg High >35.0-<45.0 [facility] Comment on above: Performed By: #### L [id number] ####De Icer: MARY SOTELO ([id number])[facility] ([facility])[address] [place] [address] PH ARTERIAL 7.286 Low 7.350-7.450 [facility] Comment on above: Performed By: #### L [id number] ####De Icer: MARY SOTELO ([id number])[facility] [place])[address] [place] [address] PO2 ARTERIAL 88.7 mm Hg Normal 80.0-100.0 [facility] Comment on above: Performed By: #### L [id number] ####De Icer: MARY SOTELO ([id number])[facility] [place])[address] [place] [address] SOURCE OF OXYGEN CPAP Normal [facility] Comment on above: Result Comment: 30% Performed By: #### L [id number] ####De Icer: MARY SOTELO ([id number])[facility] [place])[address] [place] [address] Basic metabolic 1998 panelon 08-21-2024 Anion gap [Moles/Vol] 7 mmol/L 3 - 13 mmol/L [facility] Calcium [Mass/Vol] 7.8 mg/dL Low 8.4 - 10. 4 mg/dL [facility] Chloride [Moles/Vol] 99 mmol/L 98 - 10 7 mmol/L [facility] CO2 [Moles/Vol] 27 mmol/L 22 - 30 mmol/L [facility] Creatinine [Mass/Vol] 4.52 mg/dL High 0.52 - 1.04 mg/dL [facility] GFR/1.73 sq M.predicted (S/P/Bld) [Vol rate/Area] 10.3 mL/min Low - PINF [facility] Glucose [Mass/Vol] 73 mg/dL 70 - 100 mg/dL [facility] Interpretation and review of laboratory results Abnormal [facility] Potassium [Moles/Vol] 3.2 mmol/L Low 3.5 - 5.1 mmol/L [facility] Sodium [Moles/Vol] 133 mmol/L Low 135 - 145 mmol/L [facility] Urea nitrogen [Mass/Vol] 47 mg/dL High 7 - 17 mg/dL [facility] CARECOORDon 08-21-2024 CARECOORD Normal [facility] CBC W Auto Differential pane l (Bld)on 08-21-2024 Basophils (Bld) [#/Vol] 0 10*3/uL 0.0 - 0.2 10*3/uL [facility] Basophils/100 WBC (Bld) 0.3 % 0.0 - 2.0 % [facility] Eosinophils (Bld) [#/Vol] 0.6 10*3/uL High 0.0 - 0.5 10*3/uL [facility] Eosinophils/100 WBC (Bld) 9.4 % High 0.0 - 6.0 % [facility] Erythrocyte distribution width (RBC) [Ratio] 15.9 % High 11.5 - 15.0 % [facility] Hematocrit (Bld) [Volume fraction] 30.6 % Low 35.0 - 47.0 % [facility] Hemoglobin (Bld) [Mass/Vol] 9.9 g/dL Low 11.7 - 16.0 g/dL [facility] Immature granulocytes (Bld) [#/Vol] 0 10*3/uL NINF - 0.1 10*3/uL [facility] Immature granulocytes/100 WBC (Bld) 0.2 % 0.0 - 2.0 % [facility] Interpretation and review of laboratory results Abnormal [facility] Lymphocytes (Bld) [#/Vol] 1.2 10*3/uL 1.0 - 4.3 10*3/uL [facility] Lymphocytes/100 WBC (Bld) 19.6 % 15.0 - 45.0 % [facility] MCH (RBC) [Entitic mass] 29.6 pg 26.0 - 34.0 pg [facility] MCHC (RBC) [Mass/Vol] 32.4 % 30.5 - 36.0 % [facility] MCV (RBC) [Entitic vol] 91.3 fL 77.0 - 99.0 fL [facility] Monocytes (Bld) [#/Vol] 0.5 10*3/uL 0.0 - 0.9 10*3/uL [facility] Monocytes/100 WBC (Bld) 7.6 % 5.0 - 13.0 % [facility] Neutrophils (Bld) [#/Vol] 3.9 10*3/uL 1.8 - 7.5 10*3/uL [facility] Neutrophils/100 WBC (Bld) 62.9 % 38.0 - 82.0 % [facility] Nucleated RBC/100 WBC (Bld) [Ratio] 0 % [facility] Platelet mean volume (Bld) [Entitic vol] 10.5 fL 9.0 - 12.7 fL [facility] Platelets (Bld) [#/Vol] 157 10*3/uL 140 - 440 10*3/uL [facility] RBC (Bld) [#/Vol] 3.35 10*6/uL Low 3.80 - 5.2 0 10*6/uL [facility] WBC (Bld) [#/Vol] 6.2 10*3/uL 3.6 - 10.7 10*3/uL [facility] CBC WITH AUTO DIFFERENTIALon 08-21-2024 Basophils (Bld) [#/Vol] 0.0 10*3/uL Normal 0.0-0.2 [facility] Comment on above: Performed By: #### L [id number] ####De Icer: MARY SOTELO ([id number])[facility] ([address] Basophils/100 WBC (Bld) 0.3 % Normal 0.0-2.0 [facility] Comment on above: Performed By: #### L [id number] ####De Icer: MARY SOTELO ([id number])[facility])[address] [place] [address] Eosinophils (Bld) [#/Vol] 0.6 10*3/uL High 0.0-0.5 [facility] Comment on above: Performed By: #### L [id number] ####De Icer: MARY SOTELO ([id number])[facility])[address] [place] [address] Eosinophils/100 WBC (Bld) 9.4 % High 0.0-6.0 [facility] Comment on above: Performed By: #### L [id number] ####De Icer: MARY SOTELO ([id number])[facility])[address] [place] [address] Erythrocyte distribution width (RBC) [Ratio] 15.9 % High 11.5-15.0 [facility] Comment on above: Performed By: #### L [id number] ####De Icer: MARY SOTELO ([id number])[facility])[address] [place] [address] Hematocrit (Bld) [Volume fraction] 30.6 % Low 35.0-47.0 [facility] Comment on above: Performed By: #### L [id number] ####De Icer: MARY SOTELO ([id number])[facility])[address] [place] [address] Hemoglobin (Bld) [Mass/Vol] 9.9 g/dL Low 11.7-16.0 [facility] Comment on above: Performed By: #### L [id number] ####De Icer: MARY SOTELO ([id number])[facility])[address] [place] [address] IMMATURE GRANS % 0.2 % Normal 0.0-2.0 [facility] Comment on above: Performed By: #### L [id number] ####De Icer: MARY SOTELO ([id number])[facility])[address] [place] [address] IMMATURE GRANS ABSOLUTE 0.0 10*3/uL Normal <0.1 [facility] Comment on above: Performed By: #### L [id number] ####De Icer: MARY SOTELO ([id number])[facility])[address] [place] [address] Lymphocytes (Bld) [#/Vol] 1.2 10*3/uL Normal 1.0-4.3 [facility] Comment on above: Performed By: #### L [id number] ####De Icer: MARY SOTELO ([id number])[facility])[address] [place] [address] Lymphocytes/100 WBC (Bld) 19.6 % Normal 15.0-45.0 [facility] Comment on above: Performed By: #### L [id number] ####De Icer: MARY SOTELO ([id number])[facility])[address] [place] [address] MCH (RBC) [Entitic mass] 29.6 pg Normal 26.0-34.0 [facility] Comment on above: Performed By: #### L [id number] ####De Icer: MARY SOTELO ([id number])[facility])[address] [place] [address] MCHC 32.4 % Normal 30.5-36.0 [facility] Comment on above: Performed By: #### L [id number] ####De Icer: MARY SOTELO ([id number])[facility])[address] [place] [address] MCV (RBC) [Entitic vol] 91.3 fL Normal 77.0-99.0 [facility] Comment on above: Performed By: #### L [id number] ####De Icer: MARY SOTELO ([id number])[facility])[address] [place] [address] Monocytes (Bld) [#/Vol] 0.5 10*3/uL Normal 0.0-0.9 [facility] Comment on above: Performed By: #### L [id number] ####De Icer: MARY SOTELO ([id number])[facility] ([facility])[address] [place] [address] Monocytes/100 WBC (Bld) 7.6 % Normal 5.0-13.0 [facility] Comment on above: Performed By: #### L [id number] ####De Icer: MARY SOTELO ([id number])[facility] ([facility])[address] [place] [address] NEUTROPHILS ABSOLUTE 3.9 10*3/uL Normal 1.8-7.5 [facility] Comment on above: Performed By: #### L [id number] ####De Icer: MARY SOTELO ([id number])[facility] ([facility])[address] [place] [address] Neutrophils/100 WBC (Bld) 62.9 % Normal 38.0-82.0 [facility] Comment on above: Performed By: #### L [id number] ####De Icer: MARY SOTELO ([id number])[facility] ([facility])[address] [place] [address] NRBC 0.0 /100 WBCs Normal 0.0-2.0 [facility] Comment on above: Performed By: #### L [id number] ####De Icer: MARY SOTELO ([id number])[facility] ([facility])[address] [place] [address] Platelet mean volume (Bld) [Entitic vol] 10.5 fL Normal 9.0-12.7 [facility] Comment on above: Performed By: #### L [id number] ####De Icer: MARY SOTELO ([id number])[facility] ([facility])[address] [place] [address] Platelets (Bld) [#/Vol] 157 10*3/uL Normal 140-440 [facility] Comment on above: Performed By: #### L [id number] ####De Icer: MARY SOTELO ([id number])[facility])[address] [place] [address] RBC (Bld) [#/Vol] 3.35 10*6/uL Low 3.80-5.20 [facility] Comment on above: Performed By: #### L [id number] ####De Icer: MARY SOTELO ([id number])[facility] ([facility])[address] [place] [address] WBC (Bld) [#/Vol] 6.2 10*3/uL Normal 3.6-10.7 [facility] Comment on above: Performed By: #### L [id number] ####De Icer: MARY SOTELO ([phone])[facility])[address] [place] [address] COMPLETE URINALYSISon 2023 BACTERIA (#/HPF) IN URINE Many Abnormal Negative [facility] Comment on above: Performed By: #### L [id number] ####De Icer: MARY SOTELO ([phone])[address] BILIRUBIN, TOTAL PRESENCE IN URINE Negative Normal Negative [facility] Comment on above: Performed By: #### L [id number] ####De Icer: MARY SOTELO ([id number])[facility])[address] [place] [address] Clarity (U) Extra Turbid Abnormal Clear [facility] Comment on above: Performed By: #### L [id number] ####De Icer: MARY SOTELO ([id number])[address] Color (U) Yellow Normal Lt. Yellow [facility] Comment on above: Performed By: #### L [id number] ####De Icer: MARY SOTELO ([phone])[facility])[address] [place] [address] GLUCOSE (MG/DL) IN URINE Normal Normal Normal (<70) [facility] Comment on above: Performed By: #### L [id number] ####De Icer: MARY SOTELO ([id number])[facility] ([facility])[address] [place] [address] HEMOGLOBIN PRESENCE IN URINE 1.0 mg/dL Abnormal Negative [facility] Comment on above: Performed By: #### L [id number] ####De Icer: MARY SOTELO ([id number])[facility] ([facility])[address] [place] [address] HYALINE CASTS (#/LPF) IN URINE SEDIMENT BY MICROSCOPY Negative Normal Negative [facility] Comment on above: Performed By: #### L [id number] ####De Icer: MARY SOTELO ([id number])[facility] ([facility])[address] [place] [address] Ketones Ql (U) Negative Normal Negative [facility] Comment on above: Performed By: #### L [id number] ####De Icer: MARY SOTELO ([id number])[facility] ([facility])[address] [place] [address] LEUKOCYTE ESTERASE PRESENCE IN URINE BY TEST STRIP 500 Bere/uL Abnormal Negative [facility] Comment on above: Performed By: #### L [id number] ####De Icer: MARY SOTELO ([id number])[facility] ([facility])[address] [place] [address] NITRITE PRESENCE IN URINE Negative Normal Negative [facility] Comment on above: Performed By: #### L [id number] ####De Icer: MARY SOTELO ([id number])[facility] ([facility])[address] [place] [address] pH (U) 6.0 [pH] Normal 5.0-8.0 [facility] Comment on above: Performed By: #### L [id number] ####De Icer: MARY SOTELO ([phone])[facility])[address] [place] [address] [place] Protein (U) [Mass/Vol] 100 mg/dL Abnormal Negative [facility] Comment on above: Performed By: #### L [id number] ####De Icer: MARY SOTELO ([id number])[facility] ([facility])[address] [place] [address] RBC (#/HPF) IN URINE SEDIMENT >100 Abnormal 0-2 [facility] Comment on above: Performed By: #### L [id number] ####De Icer: MARY SOTELO ([id number])[facility] ([facility])[address] [place] [address] Specific gravity (U) [Rel density] 1.009 Normal 1.005-1.030 [facility] Comment on above: Performed By: #### L [id number] ####De Icer: MARY SOTELO ([id number])[facility] ([facility])[address] [place] [address] SQUAMOUS EPITHELIAL CELLS (#/HPF) IN URINE SEDIMENT Negative Normal 3-5 [facility] Comment on above: Performed By: #### L [id number] ####De Icer: MARY SOTELO ([id number])[facility] ([facility])[address] [place] [address] UROBILINOGEN (MG/DL) IN URINE Normal Normal Normal (0-1) [facility] Comment on above: Performed By: #### L [id number] ####De Icer: MARY SOTELO ([id number])[facility] ([facility])[address] [place] [address] [place] WBC (LEUKOCYTE) (#/HPF) IN URINE SEDIMENT >100 Abnormal 0-5 [facility] Comment on above: Performed By: #### L [id number] ####De Icer: MARY SOTELO ([id number])[facility] ([facility])[address] [place] [address] WBC (LEUKOCYTE) CLUMPS (#/HPF) IN URINE SEDIMENT Many Abnormal Negative [facility] Comment on above: Performed By: #### L [id number] ####De Icer: MARY SOTELO ([id number])[facility] ([facility])[address] [place] [address] [place] YEAST (#/HPF) IN URINE Moderate Abnormal Negative [facility] Comment on above: Performed By: #### L [id number] ####De Icer: MARY SOTELO ([id number])[facility] ([facility])[address] [place] [address] [place] GLUCOSE, RANDOMon 08-21-2024 Glucose [Mass/Vol] 27 mg/dL Critically low 70-100 [facility] Comment on above: Performed By: #### L [id number] ####De Icer: MARY SOTELO ([id number])[facility] ([facility])[address] [place] [address] [place] Glucose (Bld) [Mass/Vol]Orde red By: Madison Donaldson on 08-21-2024 Glucose [Mass/Vol] 27 mg/dL Critically low 70 - 10 0 mg/dL [facility] Interpretation and review of laboratory results Abnormal [facility] Laboratory - Chemistry and C hemistry - challengeon 08-21-2024 Glucose [Mass/Vol] 228 mg/dL High 70 - 100 mg/dL [facility] Glucose [Mass/Vol] 123 mg/dL High 70 - 100 mg/dL [facility] Glucose [Mass/Vol] 110 mg/dL High 70 - 100 mg/dL [facility] Base excess Calc (Bld) [Moles/Vol] 3.2 mmol/L High -3.0 - 3.0 mmol/L [facility] CO2 (Bld) [Partial pressure] 51.3 mm[Hg] High - PINF [facility] CO2 [Moles/Vol] 30.8 mmol/L High 23.0 - 27.0 mmol/L [facility] HCO3 (Bld) [Moles/Vol] 29.2 mmol/L High 21.0 - 25.0 mmol/L [facility] Oxygen (Bld) [Partial pressure] 85.9 mm[Hg] [facility] pH (Bld) 7.373 [pH] 7.350 - 7.450 [facility] Glucose [Mass/Vol] 103 mg/dL High 70 - 100 mg/dL [facility] Glucose [Mass/Vol] 106 mg/dL High 70 - 100 mg/dL [facility] Glucose [Mass/Vol] 128 mg/dL High 70 - 100 mg/dL [facility] Glucose [Mass/Vol] 166 mg/dL High 70 - 100 mg/dL [facility] Glucose [Mass/Vol] mg/dL Low 70 - 100 mg/dL [facility] Base excess Calc (Bld) [Moles/Vol] 0.4 mmol/L -3.0 - 3.0 mmol/L [facility] CO2 (Bld) [Partial pressure] 59.5 mm[Hg] High - PINF [facility] CO2 [Moles/Vol] 29.5 mmol/L High 23.0 - 27.0 mmol/L [facility] HCO3 (Bld) [Moles/Vol] 27.7 mmol/L High 21.0 - 25.0 mmol/L [facility] Oxygen (Bld) [Partial pressure] 88.7 mm[Hg] [facility] pH (Bld) 7.286 [pH] Low 7.350 - 7.450 [facility] Magnesium [Mass/Vol] 2.1 mg/dL 1.6 - 2 .3 mg/dL [facility] Laboratory - Hematology and Cell countson 08-21-2024 Hemoglobin (Bld) [Mass/Vol] 10.2 g/dL Screen only [facility] Hemoglobin (Bld) [Mass/Vol] 9.8 g/dL Screen only [facility] MAGNESIUMon 08-21-2024 Magnesium [Mass/Vol] 2.1 mg/dL Normal 1.6-2.3 [facility] Comment on above: Performed By: #### L AB113, [id number], [id number] ####De Icer: MARY SOTELO ([id number])[facility] ([facility])[address] [place] [address] No Panel Informationon 08-21 Interpretation and review of laboratory results Abnormal [facility] Interpretation and review of laboratory results Abnormal [facility] Interpretation and review of laboratory results Abnormal [facility] Interpretation and review of laboratory results Abnormal [facility] Source Of Oxygen CPAP [facility] Interpretation and review of laboratory results Abnormal [facility] Interpretation and review of laboratory results Abnormal [facility] Interpretation and review of laboratory results Abnormal [facility] Interpretation and review of laboratory results Abnormal [facility] Interpretation and review of laboratory results Abnormal [facility] Interpretation and review of laboratory results Abnormal [facility] Source Of Oxygen [facility] Interpretation and review of laboratory results Normal [facility] Nursing Noteon 08-21-2024 Nursing Note Normal [facility] PHOSPHORUSon 08-21-2024 Phosphate [Mass/Vol] 3.5 mg/dL Normal 2.5-4.5 [facility] Comment on above: Performed By: #### L AB113, LAB15, [id number] ####De Icer: MARY SOTELO ([id number])[facility] ([facility])[address] [place] [address] [place] Phosphate [Moles/Vol]on 08-03 Phosphate [Mass/Vol] 3.5 mg/dL 2.5 - 4 .5 mg/dL [facility] Progress Noteon 08-21-2024 Progress Note Normal [facility] Progress Note Normal [facility] Progress Note Normal [facility] URINE CULTUREon 08-21-2024 Bacteria identified Cx Nom (U) Normal [facility] Comment on above: Performed By: #### L [id number] ####De Icer: MARY SOTELO ([id number])[facility] ([facility])[address] [place] [address] [place] Urinalysis complete panel (U )on 08-21-2024 Bacteria LM.HPF (Urine sed) [#/Area] Many Abnormal Negative /HPF [facility] Bilirubin Ql (U) Negative Negative mg/dL [facility] Clarity (U) Extra Turbid [facility]normal [facility] ([facility]) Yellow Lt. Yellow [facility] Epithelial cells.squamous LM.HPF (Urine sed) [#/Area] Negative [facility] Glucose Ql (U) Normal Normal (<70) mg/dL [facility] Hemoglobin Ql (U) 1.0 mg/dL Abnormal Negative [facility] Hyaline casts Auto (Urine sed) [#/Area] Negative Negative /LPF [facility] Interpretation and review of laboratory results Abnormal [facility] Ketones (U) [Mass/Vol] Negative Negat pawan mg/dL [facility] Leukocyte clumps LM.HPF (Urine sed) [#/Area] Many Abnormal Negative /HPF [facility] Leukocyte esterase Test strip Ql (U) 500 Abnormal Negative Bere/uL [facility] Nitrite Ql (U) Negative Negative [facility] th pH (U) 6.0 [pH] 5.0 - 8.0 pH [facility] Protein (U) [Mass/Vol] 100 mg/dL Abnormal Negative [facility] RBC LM.HPF (Urine sed) [#/Area] /[HPF] Abnormal [facility] Specific gravity (U) [Rel density] 1.009 1.005 - 1.030 [facility] Urobilinogen (U) [Mass/Vol] Normal Normal (0-1) mg/dL [facility] WBC LM.HPF (Urine sed) [#/Area] /[HPF] Abnormal [facility] Yeast.budding LM.HPF (Urine sed) [#/Area] Moderate Abnormal Negative /HPF [facility] BASIC METABOLIC PANELon 08-03 Anion gap [Moles/Vol] 8 mmol/L Normal 3-13 [facility] Comment on above: Performed By: #### L AB15, [id number], [id number] ####De Icer: MARY SOTELO ([id number])[facility])[address] [place] [address] [place] Calcium [Mass/Vol] 7.8 mg/dL Low 8.4-10.4 [facility] Comment on above: Performed By: #### L AB15, [id number], [id number] ####De Icer: MARY SOTELO ([id number])[facility] ([facility])[address] [place] [address] [place] Chloride [Moles/Vol] 97 mmol/L Low 98-107 [facility] Comment on above: Performed By: #### L AB15, [id number], [id number] ####De Icer: MARY SOTELO ([id number])[facility] ([facility])[address] [place] [address] [place] CO2 [Moles/Vol] 24 mmol/L Normal 22-30 [facility] Comment on above: Performed By: #### L AB15, [id number], [id number] ####De Icer: MARY SOTELO ([id number])[facility] ([facility])[address] [place] [address] Creatinine [Mass/Vol] 3.58 mg/dL High 0.52-1.04 [facility] Comment on above: Performed By: #### Dora AB15, [id number], [id number] ####De Icer: MARY SOTELO ([id number])[facility] ([facility])[address] [place] [address] [place] GLOMERULAR FILTRATION RATE ML/MIN/1.73 SQ M.PREDICTED 13.6 mL/min/1.73m*2 Low >60.0 [facility] Comment on above: Result Comment: Calc ulation based on the Chronic Kidney Disease Epidemiology Collaboration (CKD-EPI) equation refit without adjustment for race Performed By: #### Dora AB15, [id number], [id number] ####De Icer: MARY SOTELO ([id number])[facility] ([facility])[address] [place] [address] [place] Glucose [Mass/Vol] 150 mg/dL High 70-100 [facility] Comment on above: Performed By: #### Dora AB15, ITA140, [id number] ####De Icer: MARY SOTELO ([id number])[facility] ([facility])[address] [place] [address] [place] Potassium [Moles/Vol] 4.0 mmol/L Normal 3.5-5.1 [facility] Comment on above: Performed By: #### L AB15, [id number], [id number] ####De Icer: MARY SOTELO ([phone])[facility])[address] [place] [address] [place] Sodium [Moles/Vol] 129 mmol/L Low 135-145 [facility] Comment on above: Performed By: #### L AB15, [id number], [id number] ####De Icer: MARY SOTELO ([id number])[facility])[address] [place] [address] Urea nitrogen [Mass/Vol] 41 mg/dL High 7-17 [facility] Comment on above: Performed By: #### L AB15, [id number], [id number] ####De Icer: MARY SOTELO ([id number])[facility])[address] [place] [address] BLOOD GAS ARTERIALon 08-20- 024 Base excess Calc (Bld) [Moles/Vol] -0.7000 mmol/L Normal -3.0-3.0 [facility] Comment on above: Performed By: #### L AB76 ####De Icer: MARY SOTELO ([id number])[facility])[address] [place] [address] CO2 [Moles/Vol] 28.6 mmol/L High 23.0-27.0 [facility] Comment on above: Performed By: #### L AB76 ####De Icer: MARY SOTELO ([id number])[facility] ([facility])[address] [place] [address] HCO3 (Bld) [Moles/Vol] 26.8 mmol/L High 21.0-25.0 [facility] Comment on above: Performed By: #### L AB76 ####De Icer: MARY SOTELO ([phone])[facility])[address] [place] [address] Hemoglobin (Bld) [Mass/Vol] 10.3 g/dL Normal Screen only [facility] Comment on above: Performed By: #### L AB76 ####De Icer: MARY SOTELO ([id number])[facility])[address] [place] [address] OXYGEN SATURATION (%) IN ARTERIAL BLOOD 98.1 % Normal 95.0-100.0 [facility] Comment on above: Performed By: #### L AB76 ####De Icer: MARY [id number])[facility])[address] [place] [address] PCO2 ARTERIAL 59.2 mm Hg High >35.0-<45.0 [facility] Comment on above: Performed By: #### L AB76 ####De Icer: MARY SOTELO ([id number])[facility] ([facility])[address] [place] [address] PH ARTERIAL 7.274 Low 7.350-7.450 [facility] Comment on above: Performed By: #### L AB76 ####De Icer: MARY SOTELO ([id number])[facility] ([facility])[address] [place] [address] PO2 ARTERIAL 113.3 mm Hg High 80.0-100.0 [facility] Comment on above: Performed By: #### L AB76 ####De Icer: MARY SOTELO ([id number])[facility] ([facility])[address] [place] [address] SOURCE OF OXYGEN 40% Oxygen Normal [facility] Comment on above: Performed By: #### L AB76 ####De Icer: MARY SOTELO ([id number])[facility] ([facility])[address] [place] [address] Base excess Calc (Bld) [Moles/Vol] 0.2 mmol/L Normal -3.0-3.0 [facility] Comment on above: Performed By: #### L AB76 ####De Icer: MARY SOTELO ([id number])[facility] ([facility])[address] [place] [address] CO2 [Moles/Vol] 30.7 mmol/L High 23.0-27.0 [facility] Comment on above: Performed By: #### L AB76 ####De Icer: MARY SOTELO ([id number])[facility] ([facility])[address] [place] [address] HCO3 (Bld) [Moles/Vol] 28.6 mmol/L High 21.0-25.0 [facility] Comment on above: Performed By: #### L AB76 ####De Icer: MARY SOTELO ([phone])[facility] ([facility])[address] [place] [address] Hemoglobin (Bld) [Mass/Vol] 10.5 g/dL Normal Screen only [facility] Comment on above: Performed By: #### L AB76 ####De Icer: MARY SOTELO ([id number])[facility] ([facility])[address] [place] [address] OXYGEN SATURATION (%) IN ARTERIAL BLOOD 96.9 % Normal 95.0-100.0 [facility] Comment on above: Performed By: #### L AB76 ####De Icer: MARY SOTELO ([id number])[facility])[address] [place] [address] PCO2 ARTERIAL 67.9 mm Hg High >35.0-<45.0 [facility] Comment on above: Performed By: #### L AB76 ####De Icer: MARY SOTELO ([id number])[facility] ([facility])[address] [place] [address] PH ARTERIAL 7.242 Low 7.350-7.450 [facility] Comment on above: Performed By: #### L AB76 ####De Icer: MARY SOTELO ([phone])[facility])[address] [place] [address] PO2 ARTERIAL 101.2 mm Hg High 80.0-100.0 [facility] Comment on above: Performed By: #### L AB76 ####De Icer: MARY SOTELO ([id number])[facility] ([facility])[address] [place] [address] SOURCE OF OXYGEN 40% Oxygen Normal [facility] Comment on above: Performed By: #### L AB76 ####De Icer: MARY SOTELO ([phone])[facility] ([facility])[address] [place] [address] Base excess Calc (Bld) [Moles/Vol] 0.5 mmol/L Normal -3.0-3.0 [facility] Comment on above: Performed By: #### L AB76 ####De Icer: MARY SOTELO ([id number])[facility])[address] [place] [address] CO2 [Moles/Vol] 31.0 mmol/L High 23.0-27.0 [facility] Comment on above: Performed By: #### L AB76 ####De Icer: MARY SOTELO ([id number])[facility] ([facility])[address] [place] [address] HCO3 (Bld) [Moles/Vol] 28.9 mmol/L High 21.0-25.0 [facility] Comment on above: Performed By: #### L AB76 ####De Icer: MARY SOTELO ([id number])[facility])[address] [place] [address] Hemoglobin (Bld) [Mass/Vol] 10.4 g/dL Normal Screen only [facility] Comment on above: Performed By: #### L AB76 ####De Icer: MARY SOTELO ([phone])[facility])[address] [place] [address] OXYGEN SATURATION (%) IN ARTERIAL BLOOD 68.2 % Low 95.0-100.0 [facility] Comment on above: Performed By: #### L AB76 ####De Icer: MARY SOTELO ([id number])[facility])[address] [place] [address] PCO2 ARTERIAL 68.4 mm Hg High >35.0-<45.0 [facility] Comment on above: Performed By: #### L AB76 ####De Icer: MARY SOTELO ([id number])[facility])[address] [place] [address] PH ARTERIAL 7.244 Low 7.350-7.450 [facility] Comment on above: Performed By: #### L AB76 ####De Icer: MARY [id number])[facility] ([facility])[address] [place] [address] PO2 ARTERIAL 36.2 mm Hg Critically low 80.0-100.0 [facility] Comment on above: Performed By: #### L AB76 ####De Icer: MARY SOTELO ([phone])[facility] ([facility])[address] [place] [address] SOURCE OF OXYGEN Bi-PAP Normal [facility] Comment on above: Result Comment: 10/07 , 3 L Performed By: #### L AB76 ####De Icer: MARY SOTELO ([id number])[facility] ([facility])[address] [place] [address] Base excess Calc (Bld) [Moles/Vol] -1.0000 mmol/L Normal -3.0-3.0 [facility] Comment on above: Performed By: #### L [id number] ####De Icer: MARY SOTELO ([phone])[facility] ([facility])[address] [place] [address] CO2 [Moles/Vol] 30.1 mmol/L High 23.0-27.0 [facility] Comment on above: Performed By: #### L AB76 ####De Icer: MARY SOTELO ([id number])[facility] ([facility])[address] [place] [address] HCO3 (Bld) [Moles/Vol] 27.9 mmol/L High 21.0-25.0 [facility] Comment on above: Performed By: #### L AB76 ####De Icer: MARY SOTELO ([id number])[facility] ([facility])[address] [place] [address] Hemoglobin (Bld) [Mass/Vol] 10.1 g/dL Normal Screen only [facility] Comment on above: Performed By: #### L AB76 ####De Icer: MARY SOTELO ([id number])[facility] ([facility])[address] [place] [address] OXYGEN SATURATION (%) IN ARTERIAL BLOOD 92.1 % Low 95.0-100.0 [facility] Comment on above: Performed By: #### L [id number] ####De Icer: MARY SOTELO ([id number])[facility] [place] [address] PCO2 ARTERIAL 71.5 mm Hg High >35.0-<45.0 [facility] Comment on above: Performed By: #### L [id number] ####De Icer: MARY SOTELO ([id number])[facility] ([facility])[address] [place] [address] PH ARTERIAL 7.209 Low 7.350-7.450 [facility] Comment on above: Performed By: #### L [id number] ####De Icer: MARY SOTELO ([id number])[facility] ([facility])[address] [place] [address] PO2 ARTERIAL 63.4 mm Hg Low 80.0-100.0 [facility] Comment on above: Performed By: #### L [id number] ####De Icer: MARY SOTELO ([id number])[facility] ([facility])[address] [place] [address] SOURCE OF OXYGEN Nasal cannula Normal [facility] Comment on above: Result Comment: 3L Performed By: #### L [id number] ####De Icer: MARY SOTELO ([id number])[facility] ([facility])[address] [place] [address] Basic metabolic 1998 panelon 08-20-2024 Anion gap [Moles/Vol] 8 mmol/L 3 - 13 mmol/L [facility] Calcium [Mass/Vol] 7.8 mg/dL Low 8.4 - 10. 4 mg/dL [facility] Chloride [Moles/Vol] 97 mmol/L Low 98 - 10 7 mmol/L [facility] CO2 [Moles/Vol] 24 mmol/L 22 - 30 mmol/L [facility] Creatinine [Mass/Vol] 3.58 mg/dL High 0.52 - 1.04 mg/dL [facility] GFR/1.73 sq M.predicted (S/P/Bld) [Vol rate/Area] 13.6 mL/min Low - PINF [facility] Glucose [Mass/Vol] 150 mg/dL High 70 - 100 mg/dL [facility] Interpretation and review of laboratory results Abnormal [facility] Potassium [Moles/Vol] 4 mmol/L 3.5 - 5.1 mmol/L [facility] Sodium [Moles/Vol] 129 mmol/L Low 135 - 145 mmol/L [facility] Urea nitrogen [Mass/Vol] 41 mg/dL High 7 - 17 mg/dL [facility] CALCIUM, IONIZEDon CALCIUM IONIZED 4.30 mg/dL Normal 4.30-5.20 [facility] Comment on above: Performed By: #### L [id number] ####De Icer: MARY SOTELO ([id number])[facility] ([facility])[address] [place] [address] PH, IONIZED CALCIUM 7.25 Low 7.31-7.46 [facility] Comment on above: Performed By: #### L [id number] ####De Icer: MARY SOTELO ([id number])[facility] ([facility])[address] [place] [address] CARECOORDon 08-20-2024 CARECOORD Normal [facility] CBC W Auto Differential pane l (Bld)on 08-20-2024 Basophils (Bld) [#/Vol] 0 10*3/uL 0.0 - 0.2 10*3/uL [facility] Basophils/100 WBC (Bld) 0 % 0.0 - 2.0 % [facility] Eosinophils (Bld) [#/Vol] 0.1 10*3/uL 0.0 - 0.5 10*3/uL [facility] Eosinophils/100 WBC (Bld) 1.4 % 0.0 - 6.0 % [facility] Erythrocyte distribution width (RBC) [Ratio] 15.5 % High 11.5 - 15.0 % [facility] Hematocrit (Bld) [Volume fraction] 30.5 % Low 35.0 - 47.0 % [facility] Hemoglobin (Bld) [Mass/Vol] 9.9 g/dL Low 11.7 - 16.0 g/dL [facility] Immature granulocytes (Bld) [#/Vol] 0 10*3/uL NINF - 0.1 10*3/uL [facility] Immature granulocytes/100 WBC (Bld) 0.5 % 0.0 - 2.0 % [facility] Interpretation and review of laboratory results Abnormal [facility] Lymphocytes (Bld) [#/Vol] 0.6 10*3/uL Low 1.0 - 4.3 10*3/uL [facility] Lymphocytes/100 WBC (Bld) 10.8 % Low 15.0 - 45.0 % [facility] MCH (RBC) [Entitic mass] 29.5 pg 26.0 - 34.0 pg [facility] MCHC (RBC) [Mass/Vol] 32.5 % 30.5 - 36.0 % [facility] MCV (RBC) [Entitic vol] 90.8 fL 77.0 - 99.0 fL [facility] Monocytes (Bld) [#/Vol] 0.3 10*3/uL 0.0 - 0.9 10*3/uL [facility] Monocytes/100 WBC (Bld) 4.5 % Low 5.0 - 13.0 % [facility] Neutrophils (Bld) [#/Vol] 4.8 10*3/uL 1.8 - 7.5 10*3/uL [facility] Neutrophils/100 WBC (Bld) 82.8 % High 38.0 - 82.0 % [facility] Nucleated RBC/100 WBC (Bld) [Ratio] 0 % [facility] Platelet mean volume (Bld) [Entitic vol] 10.3 fL 9.0 - 12.7 fL [facility] Platelets (Bld) [#/Vol] 145 10*3/uL 140 - 440 10*3/uL [facility] RBC (Bld) [#/Vol] 3.36 10*6/uL Low 3.80 - 5.2 0 10*6/uL [facility] WBC (Bld) [#/Vol] 5.8 10*3/uL 3.6 - 10.7 10*3/uL [facility] CBC WITH AUTO DIFFERENTIALon 08-20-2024 Basophils (Bld) [#/Vol] 0.0 10*3/uL Normal 0.0-0.2 [facility] Comment on above: Performed By: #### L [id number] ####De Icer: MARY SOTELO ([id number])[facility])[address] [place] [address] Basophils/100 WBC (Bld) 0.0 % Normal 0.0-2.0 [facility] Comment on above: Performed By: #### L [id number] ####De Icer: MARY SOTELO ([id number])[facility])[address] [place] [address] Eosinophils (Bld) [#/Vol] 0.1 10*3/uL Normal 0.0-0.5 [facility] Comment on above: Performed By: #### L [id number] ####De Icer: MARY SOTELO ([id number])[address] Eosinophils/100 WBC (Bld) 1.4 % Normal 0.0-6.0 [facility] Comment on above: Performed By: #### L [id number] ####De Icer: MARY SOTELO ([id number])[facility])[address] [place] [address] Erythrocyte distribution width (RBC) [Ratio] 15.5 % High 11.5-15.0 [facility] Comment on above: Performed By: #### L [id number] ####De Icer: MARY SOTELO ([id number])[address] Hematocrit (Bld) [Volume fraction] 30.5 % Low 35.0-47.0 [facility] Comment on above: Performed By: #### L [id number] ####De Icer: MARY SOTELO ([id number])[address] Hemoglobin (Bld) [Mass/Vol] 9.9 g/dL Low 11.7-16.0 [facility] Comment on above: Performed By: #### L [id number] ####De Icer: MARY [id number])[facility] ([facility])[address] [place] [address] IMMATURE GRANS % 0.5 % Normal 0.0-2.0 [facility] Comment on above: Performed By: #### L [id number] ####De Icer: MARY SOTELO ([id number])[facility])[address] [place] [address] IMMATURE GRANS ABSOLUTE 0.0 10*3/uL Normal <0.1 [facility] Comment on above: Performed By: #### L [id number] ####De Icer: MARY SOTELO ([id number])[facility])[address] [place] [address] Lymphocytes (Bld) [#/Vol] 0.6 10*3/uL Low 1.0-4.3 [facility] Comment on above: Performed By: #### L [id number] ####De Icer: MARY SOTELO ([id number])[facility])[address] [place] [address] Lymphocytes/100 WBC (Bld) 10.8 % Low 15.0-45.0 [facility] Comment on above: Performed By: #### L [id number] ####De Icer: MARY SOTELO ([id number])[facility])[address] [place] [address] MCH (RBC) [Entitic mass] 29.5 pg Normal 26.0-34.0 [facility] Comment on above: Performed By: #### L [id number] ####De Icer: MARY SOTELO ([id number])[facility])[address] [place] [address] MCHC 32.5 % Normal 30.5-36.0 [facility] Comment on above: Performed By: #### L [id number] ####De Icer: MARY SOTELO ([id number])[facility])[address] [place] [address] MCV (RBC) [Entitic vol] 90.8 fL Normal 77.0-99.0 [facility] Comment on above: Performed By: #### L [id number] ####De Icer: MARY SOTELO ([id number])[facility])[address] [place] [address] Monocytes (Bld) [#/Vol] 0.3 10*3/uL Normal 0.0-0.9 [facility] Comment on above: Performed By: #### L [id number] ####De Icer: MARY SOTELO ([id number])[facility] ([facility])[address] [place] [address] Monocytes/100 WBC (Bld) 4.5 % Low 5.0-13.0 [facility] Comment on above: Performed By: #### L [id number] ####De Icer: MARY SOTELO ([id number])[facility])[address] [place] [address] NEUTROPHILS ABSOLUTE 4.8 10*3/uL Normal 1.8-7.5 [facility] Comment on above: Performed By: #### L [id number] ####De Icer: MARY SOTELO ([id number])[facility])[address] [place] [address] Neutrophils/100 WBC (Bld) 82.8 % High 38.0-82.0 [facility] Comment on above: Performed By: #### L [id number] ####De Icer: MARY SOTELO ([id number])[facility])[address] [place] [address] NRBC 0.0 /100 WBCs Normal 0.0-2.0 [facility] Comment on above: Performed By: #### L [id number] ####De Icer: MARY SOTELO ([id number])[facility])[address] [place] [address] Platelet mean volume (Bld) [Entitic vol] 10.3 fL Normal 9.0-12.7 [facility] Comment on above: Performed By: #### L [id number] ####De Icer: MARY SOTELO ([id number])[facility] ([facility])[address] [place] [address] Platelets (Bld) [#/Vol] 145 10*3/uL Normal 140-440 [facility] Comment on above: Performed By: #### L [id number] ####De Icer: MARY SOTELO ([id number])[facility] ([facility])[address] [place] [address] RBC (Bld) [#/Vol] 3.36 10*6/uL Low 3.80-5.20 [facility] Comment on above: Performed By: #### L [id number] ####De Icer: MARY SOTELO ([id number])[facility] ([facility])[address] [place] [address] WBC (Bld) [#/Vol] 5.8 10*3/uL Normal 3.6-10.7 [facility] Comment on above: Performed By: #### L [id number] ####De Icer: MARY SOTELO ([id number])[facility])[address] [place] [address] Calcium.ionized [Moles/Vol]O rdered By: Fredy Friend on 08-20-2024 Calcium.ionized (Bld) [Moles/Vol] 4.3 mg/dL 4.30 - 5.20 mg/dL [facility] Interpretation and review of laboratory results Abnormal [facility] PH, IONIZED CALCIUM 7.25 Low 7.31 - 7.46 [facility] Consulton 08-20-2024 Consult Normal [facility] - Chemistry and C hemistry - challengeon 08-20-2024 Base excess Calc (Bld) [Moles/Vol] -0.7000 mmol/L -3.0 - 3.0 mmol/L [facility] CO2 (Bld) [Partial pressure] 59.2 mm[Hg] High - PINF [facility] CO2 [Moles/Vol] 28.6 mmol/L High 23.0 - 27.0 mmol/L [facility] HCO3 (Bld) [Moles/Vol] 26.8 mmol/L High 21.0 - 25.0 mmol/L [facility] Oxygen (Bld) [Partial pressure] 113.3 mm[Hg] High [facility] pH (Bld) 7.274 [pH] Low 7.350 - 7.450 [facility] Glucose [Mass/Vol] 124 mg/dL High 70 - 100 mg/dL [facility] Base excess Calc (Bld) [Moles/Vol] 0.2 mmol/L -3.0 - 3.0 mmol/L [facility] CO2 (Bld) [Partial pressure] 67.9 mm[Hg] High - PINF [facility] CO2 [Moles/Vol] 30.7 mmol/L High 23.0 - 27.0 mmol/L [facility] HCO3 (Bld) [Moles/Vol] 28.6 mmol/L High 21.0 - 25.0 mmol/L [facility] Oxygen (Bld) [Partial pressure] 101.2 mm[Hg] High [facility] pH (Bld) 7.242 [pH] Low 7.350 - 7.450 [facility] Base excess Calc (Bld) [Moles/Vol] 0.5 mmol/L -3.0 - 3.0 mmol/L [facility] CO2 (Bld) [Partial pressure] 68.4 mm[Hg] High - PINF [facility] CO2 [Moles/Vol] 31 mmol/L High 23.0 - 27.0 mmol/L [facility] HCO3 (Bld) [Moles/Vol] 28.9 mmol/L High 21.0 - 25.0 mmol/L [facility] Oxygen (Bld) [Partial pressure] 36.2 mm[Hg] Critically low [facility] pH (Bld) 7.244 [pH] Low 7.350 - 7.450 [facility] Glucose [Mass/Vol] 185 mg/dL High 70 - 100 mg/dL [facility] Glucose [Mass/Vol] 158 mg/dL High 70 - 100 mg/dL [facility] Magnesium [Mass/Vol] 2 mg/dL 1.6 - 2 .3 mg/dL [facility] Laboratory - Chemistry and C hemistry - challengeOrdered By: Audrey Blanchard on 08-20-2024 Base excess Calc (Bld) [Moles/Vol] -1 mmol/L -3.0 - 3.0 mmol/L [facility] CO2 (Bld) [Partial pressure] 71.5 mm[Hg] High - PINF [facility] CO2 [Moles/Vol] 30.1 mmol/L High 23.0 - 27.0 mmol/L [facility] HCO3 (Bld) [Moles/Vol] 27.9 mmol/L High 21.0 - 25.0 mmol/L [facility] Oxygen (Bld) [Partial pressure] 63.4 mm[Hg] Low [facility] pH (Bld) 7.209 [pH] Low 7.350 - 7.450 [facility] Laboratory - Hematology and Cell countson 08-20-2024 Hemoglobin (Bld) [Mass/Vol] 10.3 g/dL Screen only [facility] Hemoglobin (Bld) [Mass/Vol] 10.5 g/dL Screen only [facility] Hemoglobin (Bld) [Mass/Vol] 10.4 g/dL Screen only [facility] - Hematology and Cell countsOrdered By: Audrey Blanchard on 08-20-2024 Hemoglobin (Bld) [Mass/Vol] 10.1 g/dL Screen only [facility] MAGNESIUMon 08-20-2024 Magnesium [Mass/Vol] 2.0 mg/dL Normal 1.6-2.3 [facility] Comment on above: Performed By: #### L [id number], [id number], [id number] ####De Icer: MARY SOTELO ([id number])[address] No Panel Informationon 08-20 Interpretation and review of laboratory results Abnormal [facility] Source Of Oxygen 40% Oxygen [facility] alth [facility] Interpretation and review of laboratory results Abnormal [facility] Interpretation and review of laboratory results Abnormal [facility] Source Of Oxygen 40% Oxygen [facility] Interpretation and review of laboratory results Abnormal [facility] Source Of Oxygen Bi-PAP [facility] Interpretation and review of laboratory results Abnormal [facility] Interpretation and review of laboratory results Abnormal [facility] Interpretation and review of laboratory results Normal [facility] No Panel InformationOrdered By: Audrey Blanchard on 08-20-2024 Interpretation and review of laboratory results Abnormal [facility] Source Of Oxygen Nasal cannula [facility] PHOSPHORUSon 08-20-2024 Phosphate [Mass/Vol] 4.1 mg/dL Normal 2.5-4.5 [facility] Comment on above: Performed By: #### L [id number], [id number], [id number] ####De Icer: MARY SOTELO ([id number])[facility] ([facility])[address] [place] [address] [place] Phosphate [Moles/Vol]on 08-03 Phosphate [Mass/Vol] 4.1 mg/dL 2.5 - 4 .5 mg/dL [facility] Progress Noteon 08-20-2024 Progress Note OCCUPATIONAL THERAPY Attempted OT services, pt on hold due to pt unable to stay aroused/limited responsiveness. Will reattempt when pt is alert/able to participate. Normal [facility] Progress Note Normal [facility] Progress Note Normal [facility] Progress Note Normal [facility] Progress Note Normal [facility] BASIC METABOLIC PANELon 08-03 Anion gap [Moles/Vol] 3 mmol/L Normal 3-13 [facility] Comment on above: Performed By: #### L AB113, LAB15, [id number], [id number] ####De Icer: MARY SOTELO ([id number])[facility] ([facility])[address] [place] [address] Calcium [Mass/Vol] 7.4 mg/dL Low 8.4-10.4 [facility] Comment on above: Performed By: #### L AB113, LAB15, [id number], [id number] ####De Icer: MARY SOTELO ([id number])[facility] ([facility])[address] [place] [address] [place] Chloride [Moles/Vol] 95 mmol/L Low 98-107 [facility] Comment on above: Performed By: #### L AB113, LAB15, [id number], [id number] ####De Icer: MARY SOTELO ([id number])[facility] [place] [address] [place] CO2 [Moles/Vol] 28 mmol/L Normal 22-30 [facility] Comment on above: Performed By: #### L AB113, LAB15, [id number], [id number] ####De Icer: MARY SOTELO ([id number])[facility])[address] [place] [address] Creatinine [Mass/Vol] 2.98 mg/dL High 0.52-1.04 [facility] Comment on above: Performed By: #### L AB113, LAB15, [id number], [id number] ####De Icer: MARY SOTELO ([id number])[facility])[address] [place] [address] GLOMERULAR FILTRATION RATE ML/MIN/1.73 SQ M.PREDICTED 17.0 mL/min/1.73m*2 Low >60.0 [facility] Comment on above: Result Comment: Calc ulation based on the Chronic Kidney Disease Epidemiology Collaboration (CKD-EPI) equation refit without adjustment for race Performed By: #### L AB113, LAB15, [id number], [id number] ####De Icer: MARY SOTELO ([id number])[facility])[address] [place] [address] Glucose [Mass/Vol] 626 mg/dL Critically high 70-100 [facility] Comment on above: Performed By: #### L AB113, LAB15, [id number], [id number] ####De Icer: MARY SOTELO ([id number])[facility] [place] [address] [place] Potassium [Moles/Vol] 4.4 mmol/L Normal 3.5-5.1 [facility] Comment on above: Performed By: #### L AB113, LAB15, [id number], [id number] ####De Icer: MARY SOTELO ([id number])[facility])[address] [place] [address] [place] Sodium [Moles/Vol] 126 mmol/L Low 135-145 [facility] Comment on above: Performed By: #### L AB113, LAB15, [id number], [id number] ####De Icer: MARY SOTELO ([id number])[facility] [place] [address] Urea nitrogen [Mass/Vol] 28 mg/dL High - [facility] Comment on above: Performed By: #### L AB113, LAB15, [id number], [id number] ####De Icer: MARY SOTELO ([id number])[facility] ([facility])[address] [place] [address] BETA HYDROXYBUTYRATEon 08-19 BETA HYDROXYBUTYRATE 7.01 mg/dL High 0.20-2.81 [facility] Comment on above: Performed By: #### L AB113, LAB15, [id number], [id number] ####De Icer: MARY SOTELO ([id number])[facility] [place] [address] Bacteria identified Cx Nom ( Bld)on 08-19-2024 Interpretation and review of laboratory results Normal [facility] Basic metabolic 1998 panelon 08-19-2024 Anion gap [Moles/Vol] 3 mmol/L 3 - 13 mmol/L [facility] Calcium [Mass/Vol] 7.4 mg/dL Low 8.4 - 10. 4 mg/dL [facility] Chloride [Moles/Vol] 95 mmol/L Low 98 - 10 7 mmol/L [facility] CO2 [Moles/Vol] 28 mmol/L 22 - 30 mmol/L [facility] Creatinine [Mass/Vol] 2.98 mg/dL High 0.52 - 1.04 mg/dL [facility] GFR/1.73 sq M.predicted (S/P/Bld) [Vol rate/Area] 17 mL/min Low - PINF [facility] Glucose [Mass/Vol] 626 mg/dL Critically high 70 - 1 00 mg/dL [facility] Interpretation and review of laboratory results Abnormal [facility] Potassium [Moles/Vol] 4.4 mmol/L 3.5 - 5.1 mmol/L [facility] Sodium [Moles/Vol] 126 mmol/L Low 135 - 145 mmol/L [facility] Urea nitrogen [Mass/Vol] 28 mg/dL High 7 - 17 mg/dL [facility] CALCIUM, IONIZEDon CALCIUM IONIZED 4.20 mg/dL Low 4.30-5.20 [facility] Comment on above: Performed By: #### L [id number] ####De Icer: MARY SOTELO ([id number])[facility] ([facility])[address] [place] [address] PH, IONIZED CALCIUM 7.21 Low 7.31-7.46 [facility] Comment on above: Performed By: #### L AB54 ####De Icer: MARY SOTELO ([id number])[facility] ([facility])[address] [place] [address] CBC W Auto Differential pane l (Bld)on 08-19-2024 Basophils (Bld) [#/Vol] 0 10*3/uL 0.0 - 0.2 10*3/uL [facility] Basophils/100 WBC (Bld) 0.3 % 0.0 - 2.0 % [facility] Eosinophils (Bld) [#/Vol] 0.1 10*3/uL 0.0 - 0.5 10*3/uL [facility] Eosinophils/100 WBC (Bld) 2.5 % 0.0 - 6.0 % [facility] Erythrocyte distribution width (RBC) [Ratio] 15.6 % High 11.5 - 15.0 % [facility] Hematocrit (Bld) [Volume fraction] 29.5 % Low 35.0 - 47.0 % [facility] Hemoglobin (Bld) [Mass/Vol] 9.3 g/dL Low 11.7 - 16.0 g/dL [facility] Immature granulocytes (Bld) [#/Vol] 0 10*3/uL NINF - 0.1 10*3/uL [facility] Immature granulocytes/100 WBC (Bld) 0.3 % 0.0 - 2.0 % [facility] Interpretation and review of laboratory results Abnormal [facility] Lymphocytes (Bld) [#/Vol] 0.6 10*3/uL Low 1.0 - 4.3 10*3/uL [facility] Lymphocytes/100 WBC (Bld) 14.8 % Low 15.0 - 45.0 % [facility] MCH (RBC) [Entitic mass] 29.3 pg 26.0 - 34.0 pg [facility] MCHC (RBC) [Mass/Vol] 31.5 % 30.5 - 36.0 % [facility] MCV (RBC) [Entitic vol] 93.1 fL 77.0 - 99.0 fL [facility] Monocytes (Bld) [#/Vol] 0.3 10*3/uL 0.0 - 0.9 10*3/uL [facility] Monocytes/100 WBC (Bld) 6.8 % 5.0 - 13.0 % [facility] Neutrophils (Bld) [#/Vol] 3 10*3/uL 1.8 - 7.5 10*3/uL [facility] Neutrophils/100 WBC (Bld) 75.3 % 38.0 - 82.0 % [facility] Nucleated RBC/100 WBC (Bld) [Ratio] 0 % [facility] Platelet mean volume (Bld) [Entitic vol] 10.6 fL 9.0 - 12.7 fL [facility] Platelets (Bld) [#/Vol] 114 10*3/uL Low 140 - 440 10*3/uL [facility] RBC (Bld) [#/Vol] 3.17 10*6/uL Low 3.80 - 5.2 0 10*6/uL [facility] WBC (Bld) [#/Vol] 4 10*3/uL 3.6 - 10.7 10*3/uL [facility] CBC WITH AUTO DIFFERENTIALon 08-19-2024 Basophils (Bld) [#/Vol] 0.0 10*3/uL Normal 0.0-0.2 [facility] Comment on above: Performed By: #### L [id number] ####De Icer: MARY SOTELO ([id number])[address] Basophils/100 WBC (Bld) 0.3 % Normal 0.0-2.0 [facility] Comment on above: Performed By: #### L [id number] ####De Icer: MARY SOTELO ([id number])[facility])[address] [place] [address] Eosinophils (Bld) [#/Vol] 0.1 10*3/uL Normal 0.0-0.5 [facility] Comment on above: Performed By: #### L [id number] ####De Icer: MARY SOTELO ([id number])[address] Eosinophils/100 WBC (Bld) 2.5 % Normal 0.0-6.0 [facility] Comment on above: Performed By: #### L [id number] ####De Icer: MARY SOTELO ([id number])[address] Erythrocyte distribution width (RBC) [Ratio] 15.6 % High 11.5-15.0 [facility] Comment on above: Performed By: #### L [id number] ####De Icer: MARY SOTELO ([id number])[address] Hematocrit (Bld) [Volume fraction] 29.5 % Low 35.0-47.0 [facility] Comment on above: Performed By: #### L [id number] ####De Icer: MARY SOTELO ([id number])[address] Hemoglobin (Bld) [Mass/Vol] 9.3 g/dL Low 11.7-16.0 [facility] Comment on above: Performed By: #### L [id number] ####De Icer: MARY SOTELO ([id number])[facility])[address] [place] [address] IMMATURE GRANS % 0.3 % Normal 0.0-2.0 [facility] Comment on above: Performed By: #### L [id number] ####De Icer: MARY SOTELO ([id number])[address] IMMATURE GRANS ABSOLUTE 0.0 10*3/uL Normal <0.1 [facility] Comment on above: Performed By: #### L [id number] ####De Icer: MARY SOTELO ([id number])[facility])[address] [place] [address] Lymphocytes (Bld) [#/Vol] 0.6 10*3/uL Low 1.0-4.3 [facility] Comment on above: Performed By: #### L [id number] ####De Icer: MARY SOTELO ([id number])[facility])[address] [place] [address] Lymphocytes/100 WBC (Bld) 14.8 % Low 15.0-45.0 [facility] Comment on above: Performed By: #### L [id number] ####De Icer: MARY SOTELO ([id number])[facility])[address] [place] [address] MCH (RBC) [Entitic mass] 29.3 pg Normal 26.0-34.0 [facility] Comment on above: Performed By: #### L [id number] ####De Icer: MARY SOTELO ([id number])[facility])[address] [place] [address] MCHC 31.5 % Normal 30.5-36.0 [facility] Comment on above: Performed By: #### L [id number] ####De Icer: MARY SOTELO ([id number])[facility])[address] [place] [address] MCV (RBC) [Entitic vol] 93.1 fL Normal 77.0-99.0 [facility] Comment on above: Performed By: #### L [id number] ####De Icer: MARY SOTELO ([id number])[facility])[address] [place] [address] Monocytes (Bld) [#/Vol] 0.3 10*3/uL Normal 0.0-0.9 [facility] Comment on above: Performed By: #### L [id number] ####De Icer: MARY SOTELO ([id number])[facility])[address] [place] [address] Monocytes/100 WBC (Bld) 6.8 % Normal 5.0-13.0 [facility] Comment on above: Performed By: #### L [id number] ####De Icer: MARY SOTELO ([id number])[facility] ([facility])[address] [place] [address] NEUTROPHILS ABSOLUTE 3.0 10*3/uL Normal 1.8-7.5 [facility] Comment on above: Performed By: #### L [id number] ####De Icer: MARY SOTELO ([id number])[facility])[address] [place] [address] Neutrophils/100 WBC (Bld) 75.3 % Normal 38.0-82.0 [facility] Comment on above: Performed By: #### L [id number] ####De Icer: MARY SOTELO ([id number])[facility] ([facility])[address] [place] [address] NRBC 0.0 /100 WBCs Normal 0.0-2.0 [facility] Comment on above: Performed By: #### L [id number] ####De Icer: MARY SOTELO ([id number])[facility])[address] [place] [address] Platelet mean volume (Bld) [Entitic vol] 10.6 fL Normal 9.0-12.7 [facility] Comment on above: Performed By: #### L [id number] ####De Icer: MARY SOTELO ([id number])[facility])[address] [place] [address] Platelets (Bld) [#/Vol] 114 10*3/uL Low 140-440 [facility] Comment on above: Performed By: #### L [id number] ####De Icer: MARY [id number])[facility] [place] [address] RBC (Bld) [#/Vol] 3.17 10*6/uL Low 3.80-5.20 [facility] Comment on above: Performed By: #### L [id number] ####De Icer: MARY SOTELO ([id number])[facility] ([facility])[address] [place] [address] WBC (Bld) [#/Vol] 4.0 10*3/uL Normal 3.6-10.7 [facility] Comment on above: Performed By: #### L [id number] ####De Icer: MARY SOTELO ([id number])[facility] ([facility])[address] [place] [address] Calcium.ionized [Moles/Vol]O rdered By: Yoana Boyd on 08-19-2024 Calcium.ionized (Bld) [Moles/Vol] 4.2 mg/dL Low 4.30 - 5.20 mg/dL [facility] Interpretation and review of laboratory results Abnormal [facility] PH, IONIZED CALCIUM 7.21 Low 7.31 - 7.46 [facility] GLUCOSE, RANDOMon 08-19-2024 Glucose [Mass/Vol] 653 mg/dL Critically high 70-100 [facility] Comment on above: Performed By: #### L [id number] ####De Icer: MARY SOTELO ([id number])[facility] ([facility])[address] [place] [address] Glucose (Bld) [Mass/Vol]on 1 Glucose [Mass/Vol] 653 mg/dL Critically high 70 - 1 00 mg/dL [facility] Interpretation and review of laboratory results Abnormal [facility] Laboratory - Chemistry and C hemistry - challengeon 08-19-2024 Glucose [Mass/Vol] 118 mg/dL High 70 - 100 mg/dL [facility] Glucose [Mass/Vol] 162 mg/dL High 70 - 100 mg/dL [facility] Glucose [Mass/Vol] 268 mg/dL High 70 - 100 mg/dL [facility] Glucose [Mass/Vol] 414 mg/dL High 70 - 100 mg/dL [facility] Glucose [Mass/Vol] mg/dL High 70 - 100 mg/dL [facility] Glucose [Mass/Vol] mg/dL High 70 - 100 mg/dL [facility] Glucose [Mass/Vol] mg/dL High 70 - 100 mg/dL [facility] Beta hydroxybutyrate [Mass/Vol] 7.01 mg/dL High 0.20 - 2.81 mg/dL [facility] Magnesium [Mass/Vol] 2 mg/dL 1.6 - 2 .3 mg/dL [facility] Glucose [Mass/Vol] mg/dL High 70 - 100 mg/dL [facility] Laboratory - Microbiology an d Antimicrobial susceptibilityon 08-19-2024 Bacteria identified Cx Nom (Bld) No growth at 5 days [facility] MAGNESIUMon 08-19-2024 Magnesium [Mass/Vol] 2.0 mg/dL Normal 1.6-2.3 [facility] Comment on above: Performed By: #### L [id number], [id number], [id number], [id number] ####De Icer: MARY SOTELO ([id number])[facility] ([facility] No Panel Informationon 08-19 Interpretation and review of laboratory results Abnormal [facility] Interpretation and review of laboratory results Abnormal [facility] Interpretation and review of laboratory results Abnormal [facility] Interpretation and review of laboratory results Abnormal [facility] Interpretation and review of laboratory results Abnormal [facility] Interpretation and review of laboratory results Abnormal [facility] Interpretation and review of laboratory results Abnormal [facility] Interpretation and review of laboratory results Abnormal [facility] Interpretation and review of laboratory results Normal [facility] Interpretation and review of laboratory results Abnormal [facility] Nursing Noteon 08-19-2024 Nursing Note Pt MBS for dinner wa s 162 orders for 8 scheduled H. Log and [address] Dequan nash. Orders to give SSI and Hold scheduled 8 units if pt does not eat dinner. Pt did not want to eat dinner; 8 units held Normal [facility] Nursing Note Pt seemingly more confused and a little more lethargic than this morning. Med Team paged to make aware Normal [facility] Nursing Note Pt recheck MBS was 527. Dr. Bijan Jarrett paged to make aware Normal [facility] Nursing Note Pt MBS still reading HI. Med Team at bedside. Physician stated no need to draw confirmation, but to give 1 time 15 unit of R and recheck in one hour. Normal [facility] Nursing Note Dr. Bijan Jarrett paged wi th repeat glucose of 653 Normal [facility] Nursing Note Critical Care lab called with result of 626. Med Team A paged regarding. Normal [facility] PHOSPHORUSon 08-19-2024 Phosphate [Mass/Vol] 3.8 mg/dL Normal 2.5-4.5 [facility] Comment on above: Performed By: #### L AB113, LAB15, [id number], [id number] ####De Icer: MARY SOTELO ([id number])[facility])[address] [place] [address] Phosphate [Moles/Vol]on 08-03 Phosphate [Mass/Vol] 3.8 mg/dL 2.5 - 4 .5 mg/dL [facility] Progress Noteon 08-19-2024 Progress Note Normal [facility] Progress Note Normal [facility] Progress [facility] Normal [facility] BASIC METABOLIC PANELon 08-03 Anion gap [Moles/Vol] 4 mmol/L Normal 3-13 [facility] Comment on above: Performed By: #### L AB113, [id number], LAB15 ####De Icer: MAYR SOTELO ([id number])[facility] ([facility])[address] [place] [address] [place] Calcium [Mass/Vol] 7.9 mg/dL Low 8.4-10.4 [facility] Comment on above: Performed By: #### L AB113, [id number], LAB15 ####De Icer: MARY SOTELO ([id number])[facility] ([facility])[address] [place] [address] Chloride [Moles/Vol] 99 mmol/L Normal 98-107 [facility] Comment on above: Performed By: #### L AB113, [id number], LAB15 ####De Icer: MARY SOTELO ([id number])[facility] [place] [address] CO2 [Moles/Vol] 27 mmol/L Normal 22-30 [facility] Comment on above: Performed By: #### L AB113, [id number], LAB15 ####De Icer: MARY SOTELO ([id number])[facility])[address] [place] [address] Creatinine [Mass/Vol] 3.57 mg/dL High 0.52-1.04 [facility] Comment on above: Performed By: #### L AB113, [id number], LAB15 ####De Icer: MARY SOTELO ([id number])[facility] ([facility])[address] [place] [address] GLOMERULAR FILTRATION RATE ML/MIN/1.73 SQ M.PREDICTED 13.7 mL/min/1.73m*2 Low >60.0 [facility] Comment on above: Result Comment: Calc ulation based on the Chronic Kidney Disease Epidemiology Collaboration (CKD-EPI) equation refit without adjustment for race Performed By: #### L AB113, [id number], LAB15 ####De Icer: MARY SOTELO ([id number])[facility] ([facility])[address] [place] [address] Glucose [Mass/Vol] 281 mg/dL High 70-100 [facility] Comment on above: Performed By: #### L AB113, [id number], LAB15 ####De Icer: MARY SOTELO ([id number])[facility])[address] [place] [address] Potassium [Moles/Vol] 3.8 mmol/L Normal 3.5-5.1 [facility] Comment on above: Performed By: #### L AB113, [id number], LAB15 ####De Icer: MARY SOTELO ([id number])[facility] ([facility])[address] [place] [address] Sodium [Moles/Vol] 130 mmol/L Low 135-145 [facility] Comment on above: Performed By: #### L AB113, [id number], LAB15 ####De Icer: MARY SOTELO ([id number])[facility] [place] [address] Urea nitrogen [Mass/Vol] 35 mg/dL High 7-17 [facility] Comment on above: Performed By: #### L AB113, [id number], LAB15 ####De Icer: MARY SOTELO ([id number])[facility] ([facility])[address] [place] [address] Basic metabolic 1998 panelon 08-18-2024 Anion gap [Moles/Vol] 4 mmol/L 3 - 13 mmol/L [facility] Calcium [Mass/Vol] 7.9 mg/dL Low 8.4 - 10. 4 mg/dL [facility] Chloride [Moles/Vol] 99 mmol/L 98 - 10 7 mmol/L [facility] CO2 [Moles/Vol] 27 mmol/L 22 - 30 mmol/L [facility] Creatinine [Mass/Vol] 3.57 mg/dL High 0.52 - 1.04 mg/dL [facility] GFR/1.73 sq M.predicted (S/P/Bld) [Vol rate/Area] 13.7 mL/min Low - PINF [facility] Glucose [Mass/Vol] 281 mg/dL High 70 - 100 mg/dL [facility] Interpretation and review of laboratory results Abnormal [facility] Potassium [Moles/Vol] 3.8 mmol/L 3.5 - 5.1 mmol/L [facility] Sodium [Moles/Vol] 130 mmol/L Low 135 - 145 mmol/L [facility] Urea nitrogen [Mass/Vol] 35 mg/dL High 7 - 17 mg/dL [facility] CALCIUM, IONIZEDon CALCIUM IONIZED 4.50 mg/dL Normal 4.30-5.20 [facility] Comment on above: Performed By: #### L [id number] ####De Icer: MARY SOTELO ([id number])[facility] [place] [address] PH, IONIZED CALCIUM 7.26 Low 7.31-7.46 [facility] Comment on above: Performed By: #### L AB54 ####De Icer: MARY SOTELO ([id number])[facility] [place] [address] CARECOORDon 08-18-2024 CARECOORD Normal [facility] CBC W Auto Differential pane l (Bld)on 08-18-2024 Basophils (Bld) [#/Vol] 0 10*3/uL 0.0 - 0.2 10*3/uL [facility] Basophils/100 WBC (Bld) 0.2 % 0.0 - 2.0 % [facility] Eosinophils (Bld) [#/Vol] 0.1 10*3/uL 0.0 - 0.5 10*3/uL [facility] Eosinophils/100 WBC (Bld) 2.9 % 0.0 - 6.0 % [facility] Erythrocyte distribution width (RBC) [Ratio] 15.7 % High 11.5 - 15.0 % [facility] Hematocrit (Bld) [Volume fraction] 29.1 % Low 35.0 - 47.0 % [facility] Hemoglobin (Bld) [Mass/Vol] 9.2 g/dL Low 11.7 - 16.0 g/dL [facility] Immature granulocytes (Bld) [#/Vol] 0 10*3/uL NINF - 0.1 10*3/uL [facility] Immature granulocytes/100 WBC (Bld) 0.7 % 0.0 - 2.0 % [facility] Interpretation and review of laboratory results Abnormal [facility] IPF 4 [facility] Lymphocytes (Bld) [#/Vol] 0.8 10*3/uL Low 1.0 - 4.3 10*3/uL [facility] Lymphocytes/100 WBC (Bld) 17.9 % 15.0 - 45.0 % [facility] MCH (RBC) [Entitic mass] 29.1 pg 26.0 - 34.0 pg [facility] MCHC (RBC) [Mass/Vol] 31.6 % 30.5 - 36.0 % [facility] MCV (RBC) [Entitic vol] 92.1 fL 77.0 - 99.0 fL [facility] Monocytes (Bld) [#/Vol] 0.4 10*3/uL 0.0 - 0.9 10*3/uL [facility] Monocytes/100 WBC (Bld) 7.8 % 5.0 - 13.0 % [facility] Neutrophils (Bld) [#/Vol] 3.2 10*3/uL 1.8 - 7.5 10*3/uL [facility] Neutrophils/100 WBC (Bld) 70.5 % 38.0 - 82.0 % [facility] Nucleated RBC/100 WBC (Bld) [Ratio] 0 % [facility] Platelet mean volume (Bld) [Entitic vol] 10.2 fL 9.0 - 12.7 fL [facility] Platelets (Bld) [#/Vol] 111 10*3/uL Low 140 - 440 10*3/uL [facility] RBC (Bld) [#/Vol] 3.16 10*6/uL Low 3.80 - 5.2 0 10*6/uL [facility] WBC (Bld) [#/Vol] 4.5 10*3/uL 3.6 - 10.7 10*3/uL [facility] CBC WITH AUTO DIFFERENTIALon 08-18-2024 Basophils (Bld) [#/Vol] 0.0 10*3/uL Normal 0.0-0.2 [facility] Comment on above: Performed By: #### L [id number] ####De Icer: MARY SOTELO ([id number])[address] Basophils/100 WBC (Bld) 0.2 % Normal 0.0-2.0 [facility] Comment on above: Performed By: #### L [id number] ####De Icer: MARY SOTELO ([id number])[facility])[address] [place] [address] Eosinophils (Bld) [#/Vol] 0.1 10*3/uL Normal 0.0-0.5 [facility] Comment on above: Performed By: #### L [id number] ####De Icer: MARY SOTELO ([id number])[facility])[address] [place] [address] Eosinophils/100 WBC (Bld) 2.9 % Normal 0.0-6.0 [facility] Comment on above: Performed By: #### L [id number] ####De Icer: MARY SOTELO ([id number])[facility])[address] [place] [address] Erythrocyte distribution width (RBC) [Ratio] 15.7 % High 11.5-15.0 [facility] Comment on above: Performed By: #### L [id number] ####De Icer: MARY SOTELO ([id number])[address] Hematocrit (Bld) [Volume fraction] 29.1 % Low 35.0-47.0 [facility] Comment on above: Performed By: #### L [id number] ####De Icer: MARY SOTELO ([id number])[address] Hemoglobin (Bld) [Mass/Vol] 9.2 g/dL Low 11.7-16.0 [facility] Comment on above: Performed By: #### L [id number] ####De Icer: MARY SOTELO ([id number])[facility])[address] [place] [address] IMMATURE GRANS % 0.7 % Normal 0.0-2.0 [facility] Comment on above: Performed By: #### L [id number] ####De Icer: MARY SOTELO ([id number])[address] IMMATURE GRANS ABSOLUTE 0.0 10*3/uL Normal <0.1 [facility] Comment on above: Performed By: #### L [id number] ####De Icer: MARY SOTELO ([id number])[facility] [place] [address] [place] IPF 4 Normal [facility] Comment on above: Performed By: #### L [id number] ####De Icer: MARY SOTELO ([id number])[facility])[address] [place] [address] Lymphocytes (Bld) [#/Vol] 0.8 10*3/uL Low 1.0-4.3 [facility] Comment on above: Performed By: #### L [id number] ####De Icer: MARY SOTELO ([id number])[facility])[address] [place] [address] Lymphocytes/100 WBC (Bld) 17.9 % Normal 15.0-45.0 [facility] Comment on above: Performed By: #### L [id number] ####De Icer: MARY SOTELO ([id number])[facility])[address] [place] [address] MCH (RBC) [Entitic mass] 29.1 pg Normal 26.0-34.0 [facility] Comment on above: Performed By: #### L [id number] ####De Icer: MARY SOTELO ([id number])[facility])[address] [place] [address] MCHC 31.6 % Normal 30.5-36.0 [facility] Comment on above: Performed By: #### L [id number] ####De Icer: MARY SOTELO ([id number])[facility])[address] [place] [address] MCV (RBC) [Entitic vol] 92.1 fL Normal 77.0-99.0 [facility] Comment on above: Performed By: #### L [id number] ####De Icer: MARY SOTELO ([id number])[facility])[address] [place] [address] Monocytes (Bld) [#/Vol] 0.4 10*3/uL Normal 0.0-0.9 [facility] Comment on above: Performed By: #### L [id number] ####De Icer: MARY SOTELO ([id number])[facility])[address] [place] [address] Monocytes/100 WBC (Bld) 7.8 % Normal 5.0-13.0 [facility] Comment on above: Performed By: #### L [id number] ####De Icer: MARY SOTELO ([id number])[facility] ([facility])[address] [place] [address] NEUTROPHILS ABSOLUTE 3.2 10*3/uL Normal 1.8-7.5 [facility] Comment on above: Performed By: #### L [id number] ####De Icer: MARY SOTELO ([id number])[facility])[address] [place] [address] Neutrophils/100 WBC (Bld) 70.5 % Normal 38.0-82.0 [facility] Comment on above: Performed By: #### L [id number] ####De Icer: MARY SOTELO ([id number])[facility] ([facility])[address] [place] [address] NRBC 0.0 /100 WBCs Normal 0.0-2.0 [facility] Comment on above: Performed By: #### L [id number] ####De Icer: MARY SOTELO ([id number])[facility])[address] [place] [address] Platelet mean volume (Bld) [Entitic vol] 10.2 fL Normal 9.0-12.7 [facility] Comment on above: Performed By: #### L [id number] ####De Icer: MARY SOTELO ([id number])[facility])[address] [place] [address] Platelets (Bld) [#/Vol] 111 10*3/uL Low 140-440 [facility] Comment on above: Performed By: #### L [id number] ####De Icer: MARY SOTELO ([id number])[facility] [place] [address] RBC (Bld) [#/Vol] 3.16 10*6/uL Low 3.80-5.20 [facility] Comment on above: Performed By: #### L [id number] ####De Icer: MARY SOTELO ([id number])[facility] ([facility])[address] [place] [address] WBC (Bld) [#/Vol] 4.5 10*3/uL Normal 3.6-10.7 [facility] Comment on above: Performed By: #### L [id number] ####De Icer: MARY SOTELO ([id number])[facility] ([facility])[address] [place] [address] Calcium.ionized [Moles/Vol]O rdered By: Elliott Macedo on 08-18-2024 Calcium.ionized (Bld) [Moles/Vol] 4.5 mg/dL 4.30 - 5.20 mg/dL [facility] Interpretation and review of laboratory results Abnormal [facility] PH, IONIZED CALCIUM 7.26 Low 7.31 - 7.46 [facility] IDNon 08-18-2024 IDN Normal [facility] - Chemistry and C hemistry - challengeon 08-18-2024 Glucose [Mass/Vol] 297 mg/dL High 70 - 100 mg/dL [facility] [facility] Glucose [Mass/Vol] 325 mg/dL High 70 - 100 mg/dL [facility] Glucose [Mass/Vol] 181 mg/dL High 70 - 100 mg/dL [facility] Glucose [Mass/Vol] 187 mg/dL High 70 - 100 mg/dL [facility] Magnesium [Mass/Vol] 2 mg/dL 1.6 - 2 .3 mg/dL [facility] MAGNESIUMon 08-18-2024 Magnesium [Mass/Vol] 2.0 mg/dL Normal 1.6-2.3 [facility] Comment on above: Performed By: #### L AB113, [id number], LAB15 ####De Icer: MARY SOTELO ([phone])[facility] ([facility])[address] [place] [address] No Panel Informationon 08-18 Interpretation and review of laboratory results Abnormal [facility] Interpretation and review of laboratory results Abnormal [facility] Interpretation and review of laboratory results Abnormal [facility] Interpretation and review of laboratory results Abnormal [facility] Interpretation and review of laboratory results Normal [facility] Nursing Noteon 08-18-2024 Nursing Note Normal [facility] PHOSPHORUSon 08-18-2024 Phosphate [Mass/Vol] 3.4 mg/dL Normal 2.5-4.5 [facility] Comment on above: Performed By: #### L [id number], [id number], LAB15 ####De Icer: MARY SOTELO ([id number])[facility])[address] [place] [address] [place] Phosphate [Moles/Vol]on 08-03 Phosphate [Mass/Vol] 3.4 mg/dL 2.5 - 4 .5 mg/dL [facility] Progress Noteon 08-18-2024 Progress Note Normal [facility] Normal [facility] Progress Note Normal [facility] Progress Note Normal [facility] BASIC METABOLIC PANELon 08-03 Anion gap [Moles/Vol] 5 mmol/L Normal 3-13 [facility] Comment on above: Performed By: #### L AB103, [id number], LAB15 ####De Icer: MARY SOTELO ([id number])[facility])[address] [place] [address] [place] Calcium [Mass/Vol] 7.0 mg/dL Low 8.4-10.4 [facility] Comment on above: Performed By: #### L AB103, [id number], LAB15 ####De Icer: MARY SOTELO ([id number])[facility])[address] [place] [address] [place] Chloride [Moles/Vol] 100 mmol/L Normal 98-107 [facility] Comment on above: Performed By: #### L AB103, [id number], LAB15 ####De Icer: MARY SOTELO ([id number])[facility] [place] [address] [place] CO2 [Moles/Vol] 28 mmol/L Normal 22-30 [facility] Comment on above: Performed By: #### L AB103, [id number], LAB15 ####De Icer: MARY SOTELO ([id number])[facility])[address] [place] [address] Creatinine [Mass/Vol] 2.31 mg/dL High 0.52-1.04 [facility] Comment on above: Performed By: #### L AB103, [id number], LAB15 ####De Icer: MARY SOTELO ([id number])[facility] ([facility])[address] [place] [address] [place] GLOMERULAR FILTRATION RATE ML/MIN/1.73 SQ M.PREDICTED 23.1 mL/min/1.73m*2 Low >60.0 [facility] Comment on above: Result Comment: Calc ulation based on the Chronic Kidney Disease Epidemiology Collaboration (CKD-EPI) equation refit without adjustment for race Performed By: #### L AB103, [id number], LAB15 ####De Icer: MARY SOTELO ([id number])[facility] ([facility])[address] [place] [address] [place] Glucose [Mass/Vol] 152 mg/dL High 70-100 [facility] Comment on above: Performed By: #### L AB103, [id number], LAB15 ####De Icer: MARY SOTELO ([id number])[facility] [place] [address] [place] Potassium [Moles/Vol] 3.6 mmol/L Normal 3.5-5.1 [facility] Comment on above: Performed By: #### L AB103, [id number], LAB15 ####De Icer: MARY SOTELO ([id number])[facility] ([facility])[address] [place] [address] [place] Sodium [Moles/Vol] 132 mmol/L Low 135-145 [facility] Comment on above: Performed By: #### L AB103, [id number], LAB15 ####De Icer: MARY SOTELO ([id number])[facility] ([facility])[address] [place] [address] Urea nitrogen [Mass/Vol] 21 mg/dL High 7-17 [facility] Comment on above: Performed By: #### L AB103, [id number], LAB15 ####De Icer: MARY SOTELO ([id number])[facility] ([facility])[address] [place] [address] Bacteria identified Cx Nom ( Bld)on 08-17-2024 Interpretation and review of laboratory results Normal [facility] Basic metabolic 1998 panelon 08-17-2024 Anion gap [Moles/Vol] 5 mmol/L 3 - 13 mmol/L [facility] Calcium [Mass/Vol] 7 mg/dL Low 8.4 - 10. 4 mg/dL [facility] Chloride [Moles/Vol] 100 mmol/L 98 - 10 7 mmol/L [facility] CO2 [Moles/Vol] 28 mmol/L 22 - 30 mmol/L [facility] Creatinine [Mass/Vol] 2.31 mg/dL High 0.52 - 1.04 mg/dL [facility] GFR/1.73 sq M.predicted (S/P/Bld) [Vol rate/Area] 23.1 mL/min Low - PINF [facility] Glucose [Mass/Vol] 152 mg/dL High 70 - 100 mg/dL [facility] Interpretation and review of laboratory results Abnormal [facility] Potassium [Moles/Vol] 3.6 mmol/L 3.5 - 5.1 mmol/L [facility] Sodium [Moles/Vol] 132 mmol/L Low 135 - 145 mmol/L [facility] Urea nitrogen [Mass/Vol] 21 mg/dL High 7 - 17 mg/dL [facility] CALCIUM, IONIZEDon CALCIUM IONIZED 3.80 mg/dL Low 4.30-5.20 [facility] Comment on above: Performed By: #### L [id number] ####De Icer: MARY SOTELO ([id number])[facility] [place] [address] PH, IONIZED CALCIUM 7.39 Normal 7.31-7.46 [facility] Comment on above: Performed By: #### L [id number] ####De Icer: MARY SOTELO ([id number])[facility] ([facility])[address] [place] [address] CARECOORDon 08-17-2024 CARECOORD Normal [facility] CBC W Auto Differential pane l (Bld)on 08-17-2024 Basophils (Bld) [#/Vol] 0 10*3/uL 0.0 - 0.2 10*3/uL [facility] Basophils/100 WBC (Bld) 0.2 % 0.0 - 2.0 % [facility] Eosinophils (Bld) [#/Vol] 0.1 10*3/uL 0.0 - 0.5 10*3/uL [facility] Eosinophils/100 WBC (Bld) 2.6 % 0.0 - 6.0 % [facility] Erythrocyte distribution width (RBC) [Ratio] 15.8 % High 11.5 - 15.0 % [facility] Hematocrit (Bld) [Volume fraction] 28.7 % Low 35.0 - 47.0 % [facility] Hemoglobin (Bld) [Mass/Vol] 9.1 g/dL Low 11.7 - 16.0 g/dL [facility] Immature granulocytes (Bld) [#/Vol] 0 10*3/uL NINF - 0.1 10*3/uL [facility] Immature granulocytes/100 WBC (Bld) 0.4 % 0.0 - 2.0 % [facility] Interpretation and review of laboratory results Abnormal [facility] IPF 4 [facility] Lymphocytes (Bld) [#/Vol] 0.7 10*3/uL Low 1.0 - 4.3 10*3/uL [facility] Lymphocytes/100 WBC (Bld) 15.7 % 15.0 - 45.0 % [facility] MCH (RBC) [Entitic mass] 29.1 pg 26.0 - 34.0 pg [facility] MCHC (RBC) [Mass/Vol] 31.7 % 30.5 - 36.0 % [facility] MCV (RBC) [Entitic vol] 91.7 fL 77.0 - 99.0 fL [facility] Monocytes (Bld) [#/Vol] 0.3 10*3/uL 0.0 - 0.9 10*3/uL [facility] Monocytes/100 WBC (Bld) 6.8 % 5.0 - 13.0 % [facility] Neutrophils (Bld) [#/Vol] 3.4 10*3/uL 1.8 - 7.5 10*3/uL [facility] Neutrophils/100 WBC (Bld) 74.3 % 38.0 - 82.0 % [facility] Nucleated RBC/100 WBC (Bld) [Ratio] 0 % [facility] Platelet mean volume (Bld) [Entitic vol] 10.7 fL 9.0 - 12.7 fL [facility] Platelets (Bld) [#/Vol] 105 10*3/uL Low 140 - 440 10*3/uL [facility] RBC (Bld) [#/Vol] 3.13 10*6/uL Low 3.80 - 5.2 0 10*6/uL [facility] WBC (Bld) [#/Vol] 4.5 10*3/uL 3.6 - 10.7 10*3/uL [facility] CBC WITH AUTO DIFFERENTIALon 08-17-2024 Basophils (Bld) [#/Vol] 0.0 10*3/uL Normal 0.0-0.2 [facility] Comment on above: Performed By: #### L [id number] ####De Icer: MARY SOTELO ([id number])[address] Basophils/100 WBC (Bld) 0.2 % Normal 0.0-2.0 [facility] Comment on above: Performed By: #### L [id number] ####De Icer: MARY SOTELO ([id number])[address] Eosinophils (Bld) [#/Vol] 0.1 10*3/uL Normal 0.0-0.5 [facility] Comment on above: Performed By: #### L [id number] ####De Icer: MARY SOTELO ([id number])[facility])[address] [place] [address] Eosinophils/100 WBC (Bld) 2.6 % Normal 0.0-6.0 [facility] Comment on above: Performed By: #### L [id number] ####De Icer: MARY SOTELO ([id number])[facility])[address] [place] [address] Erythrocyte distribution width (RBC) [Ratio] 15.8 % High 11.5-15.0 [facility] Comment on above: Performed By: #### L [id number] ####De Icer: MARY SOTELO ([id number])[facility])[address] [place] [address] Hematocrit (Bld) [Volume fraction] 28.7 % Low 35.0-47.0 [facility] Comment on above: Performed By: #### L [id number] ####De Icer: MARY SOTELO ([id number])[facility])[address] [place] [address] Hemoglobin (Bld) [Mass/Vol] 9.1 g/dL Low 11.7-16.0 [facility] Comment on above: Performed By: #### L [id number] ####De Icer: MARY SOTELO ([id number])[facility])[address] [place] [address] IMMATURE GRANS % 0.4 % Normal 0.0-2.0 [facility] Comment on above: Performed By: #### L [id number] ####De Icer: MARY SOTELO ([id number])[facility])[address] [place] [address] IMMATURE GRANS ABSOLUTE 0.0 10*3/uL Normal <0.1 [facility] Comment on above: Performed By: #### L [id number] ####De Icer: MARY SOTELO ([id number])[facility])[address] [place] [address] [place] IPF 4 Normal [facility] Comment on above: Performed By: #### L [id number] ####De Icer: MARY SOTELO ([id number])[facility])[address] [place] [address] Lymphocytes (Bld) [#/Vol] 0.7 10*3/uL Low 1.0-4.3 [facility] Comment on above: Performed By: #### L [id number] ####De Icer: MARY SOTELO ([id number])[facility])[address] [place] [address] Lymphocytes/100 WBC (Bld) 15.7 % Normal 15.0-45.0 [facility] Comment on above: Performed By: #### L [id number] ####De Icer: MARY SOTELO ([id number])[facility])[address] [place] [address] MCH (RBC) [Entitic mass] 29.1 pg Normal 26.0-34.0 [facility] Comment on above: Performed By: #### L [id number] ####De Icer: MARY SOTELO ([id number])[facility])[address] [place] [address] MCHC 31.7 % Normal 30.5-36.0 [facility] Comment on above: Performed By: #### L [id number] ####De Icer: MARY SOTELO ([id number])[address] MCV (RBC) [Entitic vol] 91.7 fL Normal 77.0-99.0 [facility] Comment on above: Performed By: #### L [id number] ####De Icer: MARY SOTELO ([id number])[facility])[address] [place] [address] Monocytes (Bld) [#/Vol] 0.3 10*3/uL Normal 0.0-0.9 [facility] Comment on above: Performed By: #### L [id number] ####De Icer: MARY SOTELO ([id number])[facility] ([facility])[address] [place] [address] Monocytes/100 WBC (Bld) 6.8 % Normal 5.0-13.0 [facility] Comment on above: Performed By: #### L [id number] ####De Icer: MARY SOTELO ([id number])[facility] ([facility])[address] [place] [address] NEUTROPHILS ABSOLUTE 3.4 10*3/uL Normal 1.8-7.5 [facility] Comment on above: Performed By: #### L [id number] ####De Icer: MARY SOTELO ([id number])[facility] ([facility])[address] [place] [address] Neutrophils/100 WBC (Bld) 74.3 % Normal 38.0-82.0 [facility] Comment on above: Performed By: #### L [id number] ####De Icer: MARY SOTELO ([id number])[facility] ([facility])[address] [place] [address] NRBC 0.0 /100 WBCs Normal 0.0-2.0 [facility] Comment on above: Performed By: #### L [id number] ####De Icer: MARY SOTELO ([id number])[facility] ([facility])[address] [place] [address] Platelet mean volume (Bld) [Entitic vol] 10.7 fL Normal 9.0-12.7 [facility] Comment on above: Performed By: #### L [id number] ####De Icer: MARY SOTELO ([id number])[facility] ([facility])[address] [place] [address] [place] Platelets (Bld) [#/Vol] 105 10*3/uL Low 140-440 [facility] Comment on above: Performed By: #### L [id number] ####De Icer: MARY SOTELO ([id number])[facility] ([facility])[address] [place] [address] [place] RBC (Bld) [#/Vol] 3.13 10*6/uL Low 3.80-5.20 [facility] Comment on above: Performed By: #### L [id number] ####De Icer: MARY SOTELO ([id number])[facility] ([facility])[address] [place] [address] WBC (Bld) [#/Vol] 4.5 10*3/uL Normal 3.6-10.7 [facility] Comment on above: Performed By: #### L [id number] ####De Icer: MARY SOTELO ([id number])[address] Calcium.ionized [Moles/Vol]o n 08-17-2024 Calcium.ionized (Bld) [Moles/Vol] 3.8 mg/dL Low 4.30 - 5.20 mg/dL [facility] Interpretation and review of laboratory results Abnormal [facility] PH, IONIZED CALCIUM 7.39 7.31 - 7.46 [facility] IDNon 08-17-2024 IDN Normal [facility] - Chemistry and C hemistry - challengeon 08-17-2024 Glucose [Mass/Vol] 178 mg/dL High 70 - 100 mg/dL [facility] Glucose [Mass/Vol] 112 mg/dL High 70 - 100 mg/dL [facility] Glucose [Mass/Vol] 213 mg/dL High 70 - 100 mg/dL [facility] Glucose [Mass/Vol] 286 mg/dL High 70 - 100 mg/dL [facility] Magnesium [Mass/Vol] 2 mg/dL 1.6 - 2 .3 mg/dL [facility] - Microbiology an d Antimicrobial susceptibilityon 08-17-2024 Bacteria identified Cx Nom (Bld) No growth at 5 days [facility] MAGNESIUMon 08-17-2024 Magnesium [Mass/Vol] 2.0 mg/dL Normal 1.6-2.3 [facility] Comment on above: Performed By: #### L [id number], [id number], LAB15 ####De Icer: MARY SOTELO ([id number])[facility] ([facility])[address] [place] [address] No Panel Informationon 08-17 Interpretation and review of laboratory results Abnormal [facility] Interpretation and review of laboratory results Abnormal [facility] Interpretation and review of laboratory results Abnormal [facility] Interpretation and review of laboratory results Abnormal [facility] Interpretation and review of laboratory results Normal [facility] PHOSPHORUSon 08-17-2024 Phosphate [Mass/Vol] 2.8 mg/dL Normal 2.5-4.5 [facility] Comment on above: Performed By: #### L AB103, [id number], LAB15 ####De Icer: MARY SOTELO ([id number])[facility])[address] [place] [address] Phosphate [Moles/Vol]on 08-03 Phosphate [Mass/Vol] 2.8 mg/dL 2.5 - 4 .5 mg/dL [facility] Progress Noteon 08-17-2024 Progress Note Normal [facility] Progress Note Normal [facility] Progress Note Normal [facility] Progress Note Normal [facility] BASIC METABOLIC PANELon 08-03 Anion gap [Moles/Vol] 6 mmol/L Normal 3-13 [facility] Comment on above: Performed By: #### L AB103, [id number], LAB15 ####De Icer: MARY SOTELO ([id number])[facility] ([facility])[address] [place] [address] Calcium [Mass/Vol] 7.2 mg/dL Low 8.4-10.4 [facility] Comment on above: Performed By: #### L AB103, [id number], LAB15 ####De Icer: MARY SOTELO ([id number])[facility])[address] [place] [address] Chloride [Moles/Vol] 98 mmol/L Normal 98-107 [facility] Comment on above: Performed By: #### L AB103, [id number], LAB15 ####De Icer: MARY SOTELO ([id number])[facility] ([facility])[address] [place] [address] CO2 [Moles/Vol] 27 mmol/L Normal 22-30 [facility] Comment on above: Performed By: #### L AB103, [id number], LAB15 ####De Icer: MARY SOTELO ([id number])[facility] [place] [address] Creatinine [Mass/Vol] 3.90 mg/dL High 0.52-1.04 [facility] Comment on above: Performed By: #### L AB103, [id number], LAB15 ####De Icer: MARY SOTELO ([id number])[facility] ([facility])[address] [place] [address] GLOMERULAR FILTRATION RATE ML/MIN/1.73 SQ M.PREDICTED 12.3 mL/min/1.73m*2 Low >60.0 [facility] Comment on above: Result Comment: Calc ulation based on the Chronic Kidney Disease Epidemiology Collaboration (CKD-EPI) equation refit without adjustment for race Performed By: #### L AB103, [id number], LAB15 ####De Icer: MARY SOTELO ([id number])[facility] ([facility])[address] [place] [address] Glucose [Mass/Vol] 362 mg/dL High 70-100 [facility] Comment on above: Performed By: #### L AB103, [id number], LAB15 ####De Icer: MARY SOTELO ([id number])[facility] ([facility])[address] [place] [address] [place] Potassium [Moles/Vol] 4.1 mmol/L Normal 3.5-5.1 [facility] Comment on above: Performed By: #### L AB103, [id number], LAB15 ####De Icer: MARY SOTELO ([id number])[facility] ([facility])[address] [place] [address] Sodium [Moles/Vol] 131 mmol/L Low 135-145 [facility] Comment on above: Performed By: #### L AB103, [id number], LAB15 ####De Icer: MARY SOTELO ([id number])[facility])[address] [place] [address] Urea nitrogen [Mass/Vol] 38 mg/dL High 7-17 [facility] Comment on above: Performed By: #### L AB103, [id number], LAB15 ####De Icer: MARY SOTELO ([id number])[facility])[address] [place] [address] Bacteria identified Cx Nom ( U)Ordered By: Matilde Ronquillo on 08-16-2024 Interpretation and review of laboratory results Abnormal [facility] Basic metabolic 1998 panelon 08-16-2024 Anion gap [Moles/Vol] 6 mmol/L 3 - 13 mmol/L [facility] Calcium [Mass/Vol] 7.2 mg/dL Low 8.4 - 10. 4 mg/dL [facility] Chloride [Moles/Vol] 98 mmol/L 98 - 10 7 mmol/L [facility] CO2 [Moles/Vol] 27 mmol/L 22 - 30 mmol/L [facility] Creatinine [Mass/Vol] 3.9 mg/dL High 0.52 - 1.04 mg/dL [facility] GFR/1.73 sq M.predicted (S/P/Bld) [Vol rate/Area] 12.3 mL/min Low - PINF [facility] Glucose [Mass/Vol] 362 mg/dL High 70 - 100 mg/dL [facility] Interpretation and review of laboratory results Abnormal [facility] Potassium [Moles/Vol] 4.1 mmol/L 3.5 - 5.1 mmol/L [facility] Sodium [Moles/Vol] 131 mmol/L Low 135 - 145 mmol/L [facility] Urea nitrogen [Mass/Vol] 38 mg/dL High 7 - 17 mg/dL [facility] CALCIUM, IONIZEDon 4 CALCIUM IONIZED 4.20 mg/dL Low 4.30-5.20 [facility] Comment on above: Performed By: #### L [id number] ####De Icer: MARY SOTELO ([id number])[facility] ([facility])[address] [place] [address] PH, IONIZED CALCIUM 7.16 Low 7.31-7.46 [facility] Comment on above: Performed By: #### L [id number] ####De Icer: MARY SOTELO ([id number])[facility] ([facility])[address] [place] [address] CARECOORDon 08-16-2024 CARECOORD Normal [facility] CBC W Auto Differential pane l (Bld)on 08-16-2024 Basophils (Bld) [#/Vol] 0 10*3/uL 0.0 - 0.2 10*3/uL [facility] Basophils/100 WBC (Bld) 0.2 % 0.0 - 2.0 % [facility] Eosinophils (Bld) [#/Vol] 0 10*3/uL 0.0 - 0.5 10*3/uL [facility] Eosinophils/100 WBC (Bld) 0.4 % 0.0 - 6.0 % [facility] Erythrocyte distribution width (RBC) [Ratio] 15.8 % High 11.5 - 15.0 % [facility] Hematocrit (Bld) [Volume fraction] 30 % Low 35.0 - 47.0 % [facility] Hemoglobin (Bld) [Mass/Vol] 9.7 g/dL Low 11.7 - 16.0 g/dL [facility] Immature granulocytes (Bld) [#/Vol] 0 10*3/uL NINF - 0.1 10*3/uL [facility] Immature granulocytes/100 WBC (Bld) 0.6 % 0.0 - 2.0 % [facility] Interpretation and review of laboratory results Abnormal [facility] Lymphocytes (Bld) [#/Vol] 0.5 10*3/uL Low 1.0 - 4.3 10*3/uL [facility] Lymphocytes/100 WBC (Bld) 10.1 % Low 15.0 - 45.0 % [facility] MCH (RBC) [Entitic mass] 29.6 pg 26.0 - 34.0 pg [facility] [facility] MCHC (RBC) [Mass/Vol] 32.3 % 30.5 - 36.0 % [facility] MCV (RBC) [Entitic vol] 91.5 fL 77.0 - 99.0 fL [facility] Monocytes (Bld) [#/Vol] 0.3 10*3/uL 0.0 - 0.9 10*3/uL [facility] Monocytes/100 WBC (Bld) 6.9 % 5.0 - 13.0 % [facility] Neutrophils (Bld) [#/Vol] 3.9 10*3/uL 1.8 - 7.5 10*3/uL [facility] Neutrophils/100 WBC (Bld) 81.8 % 38.0 - 82.0 % [facility] Nucleated RBC/100 WBC (Bld) [Ratio] 0 % [facility] Platelet mean volume (Bld) [Entitic vol] 10.2 fL 9.0 - 12.7 fL [facility] Platelets (Bld) [#/Vol] 104 10*3/uL Low 140 - 440 10*3/uL [facility] RBC (Bld) [#/Vol] 3.28 10*6/uL Low 3.80 - 5.2 0 10*6/uL [facility] WBC (Bld) [#/Vol] 4.8 10*3/uL 3.6 - 10.7 10*3/uL [facility] CBC WITH AUTO DIFFERENTIALon 08-16-2024 Basophils (Bld) [#/Vol] 0.0 10*3/uL Normal 0.0-0.2 [facility] Comment on above: Performed By: #### L [id number] ####De Icer: MARY [id number])[address] Basophils/100 WBC (Bld) 0.2 % Normal 0.0-2.0 [facility] Comment on above: Performed By: #### L [id number] ####De Icer: MARY [id number])[facility])[address] [place] [address] Eosinophils (Bld) [#/Vol] 0.0 10*3/uL Normal 0.0-0.5 [facility] Comment on above: Performed By: #### L [id number] ####De Icer: MARY [id number])[facility] [address] Eosinophils/100 WBC (Bld) 0.4 % Normal 0.0-6.0 [facility] Comment on above: Performed By: #### L [id number] ####De Icer: MARY SOTELO ([id number])[facility])[address] [place] [address] Erythrocyte distribution width (RBC) [Ratio] 15.8 % High 11.5-15.0 [facility] Comment on above: Performed By: #### L [id number] ####De Icer: MARY SOTELO ([id number])[address] Hematocrit (Bld) [Volume fraction] 30.0 % Low 35.0-47.0 [facility] Comment on above: Performed By: #### L [id number] ####De Icer: MARY SOTELO ([id number])[facility])[address] [place] [address] Hemoglobin (Bld) [Mass/Vol] 9.7 g/dL Low 11.7-16.0 [facility] Comment on above: Performed By: #### L [id number] ####De Icer: MARY SOTELO ([id number])[facility])[address] [place] [address] IMMATURE GRANS % 0.6 % Normal 0.0-2.0 [facility] Comment on above: Performed By: #### L [id number] ####De Icer: MARY SOTELO ([id number])[facility])[address] [place] [address] IMMATURE GRANS ABSOLUTE 0.0 10*3/uL Normal <0.1 [facility] Comment on above: Performed By: #### L [id number] ####De Icer: MRAY SOTELO ([id number])[facility])[address] [place] [address] Lymphocytes (Bld) [#/Vol] 0.5 10*3/uL Low 1.0-4.3 [facility] Comment on above: Performed By: #### L [id number] ####De Icer: MARY SOTELO ([id number])[facility])[address] [place] [address] Lymphocytes/100 WBC (Bld) 10.1 % Low 15.0-45.0 [facility] Comment on above: Performed By: #### L [id number] ####De Icer: MARY SOTELO ([id number])[facility])[address] [place] [address] MCH (RBC) [Entitic mass] 29.6 pg Normal 26.0-34.0 [facility] Comment on above: Performed By: #### L [id number] ####De Icer: MARY SOTELO ([id number])[facility])[address] [place] [address] MCHC 32.3 % Normal 30.5-36.0 [facility] Comment on above: Performed By: #### L [id number] ####De Icer: MARY SOTELO ([id number])[facility])[address] [place] [address] MCV (RBC) [Entitic vol] 91.5 fL Normal 77.0-99.0 [facility] Comment on above: Performed By: #### L [id number] ####De Icer: MARY SOTELO ([id number])[facility])[address] [place] [address] Monocytes (Bld) [#/Vol] 0.3 10*3/uL Normal 0.0-0.9 [facility] Comment on above: Performed By: #### L [id number] ####De Icer: MARY SOTELO ([id number])[facility])[address] [place] [address] Monocytes/100 WBC (Bld) 6.9 % Normal 5.0-13.0 [facility] Comment on above: Performed By: #### L [id number] ####De Icer: MARY SOTELO ([id number])[facility] ([facility])[address] [place] [address] NEUTROPHILS ABSOLUTE 3.9 10*3/uL Normal 1.8-7.5 [facility] Comment on above: Performed By: #### L [id number] ####De Icer: MARY SOTELO ([id number])[facility] ([facility])[address] [place] [address] Neutrophils/100 WBC (Bld) 81.8 % Normal 38.0-82.0 [facility] Comment on above: Performed By: #### L [id number] ####De Icer: MARY SOTELO ([id number])[facility] ([facility])[address] [place] [address] NRBC 0.0 /100 WBCs Normal 0.0-2.0 [facility] Comment on above: Performed By: #### L [id number] ####De Icer: MARY SOTELO ([id number])[facility] ([facility])[address] [place] [address] Platelet mean volume (Bld) [Entitic vol] 10.2 fL Normal 9.0-12.7 [facility] Comment on above: Performed By: #### L [id number] ####De Icer: MARY SOTELO ([id number])[facility] ([facility])[address] [place] [address] Platelets (Bld) [#/Vol] 104 10*3/uL Low 140-440 [facility] Comment on above: Performed By: #### L [id number] ####De Icer: MARY SOTELO ([id number])[facility] ([facility])[address] [place] [address] [place] RBC (Bld) [#/Vol] 3.28 10*6/uL Low 3.80-5.20 [facility] Comment on above: Performed By: #### L [id number] ####De Icer: MARY SOTELO ([id number])[facility] ([facility])[address] [place] [address] WBC (Bld) [#/Vol] 4.8 10*3/uL Normal 3.6-10.7 [facility] Comment on above: Performed By: #### L [id number] ####De Icer: MARY SOTELO ([id number])[facility] [place] [address] Calcium.ionized [Moles/Vol]o n 08-16-2024 Calcium.ionized (Bld) [Moles/Vol] 4.2 mg/dL Low 4.30 - 5.20 mg/dL [facility] Interpretation and review of laboratory results Abnormal [facility] PH, IONIZED CALCIUM 7.16 Low 7.31 - 7.46 [facility] IDNon 08-16-2024 IDN Normal [facility] - Chemistry and C hemistry - challengeon 08-16-2024 Glucose [Mass/Vol] 174 mg/dL High 70 - 100 mg/dL [facility] Glucose [Mass/Vol] 163 mg/dL High 70 - 100 mg/dL [facility] Glucose [Mass/Vol] 350 mg/dL High 70 - 100 mg/dL [facility] Glucose [Mass/Vol] 405 mg/dL High 70 - 100 mg/dL [facility] Magnesium [Mass/Vol] 2.2 mg/dL 1.6 - 2 .3 mg/dL [facility] - Microbiology an d Antimicrobial susceptibilityOrdered By: Matilde Ronquillo on 08-16-2024 Bacteria identified Cx Nom (U) >100,000 CFU/mL Abbi albicans Abnormal [facility] MAGNESIUMon 08-16-2024 Magnesium [Mass/Vol] 2.2 mg/dL Normal 1.6-2.3 [facility] Comment on above: Performed By: #### L [id number], [id number], LAB15 ####De Icer: MARY SOTELO ([id number])[facility] ([facility])[address] [place] [address] No Panel Informationon 08-16 Interpretation and review of laboratory results Abnormal [facility] Interpretation and review of laboratory results Abnormal [facility] Interpretation and review of laboratory results Abnormal [facility] Interpretation and review of laboratory results Abnormal [facility] Interpretation and review of laboratory results Normal [facility] Nursing Noteon 08-16-2024 Nursing Note Normal [facility] PHOSPHORUSon 08-16-2024 Phosphate [Mass/Vol] 4.5 mg/dL Normal 2.5-4.5 [facility] Comment on above: Performed By: #### L AB103, [id number], LAB15 ####De Icer: MARY SOTELO ([id number])[facility] ([facility])[address] [place] [address] [place] Phosphate [Moles/Vol]on 08-03 Phosphate [Mass/Vol] 4.5 mg/dL 2.5 - 4 .5 mg/dL [facility] Progress Noteon 08-16-2024 Progress Note Normal [facility] Progress Note Normal [facility] Progress Note Normal [facility] Progress Note Normal [facility] BASIC METABOLIC PANELon 08-03 Anion gap [Moles/Vol] 8 mmol/L Normal 3-13 [facility] Comment on above: Performed By: #### Dora QUINTANILLA, [id number], LAB15 ####De Icer: MARY SOTELO ([id number])[facility] ([facility])[address] [place] [address] [place] Calcium [Mass/Vol] 7.1 mg/dL Low 8.4-10.4 [facility] Comment on above: Performed By: #### oDra QUINTANILLA, [id number], LAB15 ####De Icer: MARY SOTELO ([id number])[facility] [place] [address] [place] Chloride [Moles/Vol] 100 mmol/L Normal 98-107 [facility] Comment on above: Performed By: #### L AB113, [id number], LAB15 ####De Icer: MARY SOTELO ([id number])[facility] ([facility])[address] [place] [address] [place] CO2 [Moles/Vol] 22 mmol/L Normal 22-30 [facility] Comment on above: Performed By: #### L AB113, [id number], LAB15 ####De Icer: MARY SOTELO ([id number])[facility])[address] [place] [address] Creatinine [Mass/Vol] 2.97 mg/dL High 0.52-1.04 [facility] Comment on above: Performed By: #### L AB113, [id number], LAB15 ####De Icer: MARY SOTELO ([id number])[facility])[address] [place] [address] GLOMERULAR FILTRATION RATE ML/MIN/1.73 SQ M.PREDICTED 17.1 mL/min/1.73m*2 Low >60.0 [facility] Comment on above: Result Comment: Calc ulation based on the Chronic Kidney Disease Epidemiology Collaboration (CKD-EPI) equation refit without adjustment for race Performed By: #### Dora AB113, [id number], LAB15 ####De Icer: MARY SOTELO ([id number])[facility] ([facility])[address] [place] [address] Glucose [Mass/Vol] 270 mg/dL High 70-100 [facility] Comment on above: Performed By: #### Dora AB113, [id number], LAB15 ####De Icer: MARY SOTELO ([id number])[facility])[address] [place] [address] Potassium [Moles/Vol] 3.9 mmol/L Normal 3.5-5.1 [facility] Comment on above: Performed By: #### L AB113, [id number], LAB15 ####De Icer: MARY SOTELO ([id number])[facility])[address] [place] [address] Sodium [Moles/Vol] 130 mmol/L Low 135-145 [facility] Comment on above: Performed By: #### L AB113, [id number], LAB15 ####De Icer: MARY SOTELO ([id number])[facility])[address] [place] [address] Urea nitrogen [Mass/Vol] 27 mg/dL High 7-17 [facility] Comment on above: Performed By: #### L AB113, [id number], LAB15 ####De Icer: MARY SOTELO ([id number])[facility] ([facility])[address] [place] [address] Bacteria identified Cx Nom ( Bld)Ordered By: Kaitlyn Corona on 08-15-2024 Interpretation and review of laboratory results Abnormal [facility] Basic metabolic 1998 panelOr dered By: Deirdre Maciel on 08-15-2024 Anion gap [Moles/Vol] 8 mmol/L 3 - 13 mmol/L [facility] Calcium [Mass/Vol] 7.1 mg/dL Low 8.4 - 10. 4 mg/dL [facility] Chloride [Moles/Vol] 100 mmol/L 98 - 10 7 mmol/L [facility] CO2 [Moles/Vol] 22 mmol/L 22 - 30 mmol/L [facility] Creatinine [Mass/Vol] 2.97 mg/dL High 0.52 - 1.04 mg/dL [facility] GFR/1.73 sq M.predicted (S/P/Bld) [Vol rate/Area] 17.1 mL/min Low - PINF [facility] Glucose [Mass/Vol] 270 mg/dL High 70 - 100 mg/dL [facility] Interpretation and review of laboratory results Abnormal [facility] Potassium [Moles/Vol] 3.9 mmol/L 3.5 - 5.1 mmol/L [facility] Sodium [Moles/Vol] 130 mmol/L Low 135 - 145 mmol/L [facility] Urea nitrogen [Mass/Vol] 27 mg/dL High 7 - 17 mg/dL [facility] CALCIUM, IONIZEDon 4 CALCIUM IONIZED 3.90 mg/dL Low 4.30-5.20 [facility] Comment on above: Performed By: #### L [id number] ####De Icer: MARY SOTELO ([id number])[facility] [place] [address] PH, IONIZED CALCIUM 7.29 Low 7.31-7.46 [facility] Comment on above: Performed By: #### L AB54 ####De Icer: MARY SOTELO ([id number])[facility] ([address] CBC W Auto Differential pane l (Bld)Ordered By: Olamide Orozco on 08-15-2024 Basophils (Bld) [#/Vol] 0 10*3/uL 0.0 - 0.2 10*3/uL [facility] Basophils/100 WBC (Bld) 0.2 % 0.0 - 2.0 % [facility] Eosinophils (Bld) [#/Vol] 0 10*3/uL 0.0 - 0.5 10*3/uL [facility] Eosinophils/100 WBC (Bld) 0.6 % 0.0 - 6.0 % [facility] Erythrocyte distribution width (RBC) [Ratio] 15.9 % High 11.5 - 15.0 % [facility] Hematocrit (Bld) [Volume fraction] 30.3 % Low 35.0 - 47.0 % [facility] Hemoglobin (Bld) [Mass/Vol] 9.5 g/dL Low 11.7 - 16.0 g/dL [facility] Immature granulocytes (Bld) [#/Vol] 0 10*3/uL NINF - 0.1 10*3/uL [facility] Immature granulocytes/100 WBC (Bld) 0.8 % 0.0 - 2.0 % [facility] Interpretation and review of laboratory results Abnormal [facility] IPF 4 [facility] Lymphocytes (Bld) [#/Vol] 0.6 10*3/uL Low 1.0 - 4.3 10*3/uL [facility] Lymphocytes/100 WBC (Bld) 12.7 % Low 15.0 - 45.0 % [facility] MCH (RBC) [Entitic mass] 29 pg 26.0 - 34.0 pg [facility] MCHC (RBC) [Mass/Vol] 31.4 % 30.5 - 36.0 % [facility] MCV (RBC) [Entitic vol] 92.4 fL 77.0 - 99.0 fL [facility] Monocytes (Bld) [#/Vol] 0.4 10*3/uL 0.0 - 0.9 10*3/uL [facility] Monocytes/100 WBC (Bld) 7.3 % 5.0 - 13.0 % [facility] Neutrophils (Bld) [#/Vol] 3.9 10*3/uL 1.8 - 7.5 10*3/uL [facility] Neutrophils/100 WBC (Bld) 78.4 % 38.0 - 82.0 % [facility] Nucleated RBC/100 WBC (Bld) [Ratio] 0 % [facility] Platelet mean volume (Bld) [Entitic vol] 10.1 fL 9.0 - 12.7 fL [facility] Platelets (Bld) [#/Vol] 90 10*3/uL Low 140 - 440 10*3/uL [facility] RBC (Bld) [#/Vol] 3.28 10*6/uL Low 3.80 - 5.2 0 10*6/uL [facility] WBC (Bld) [#/Vol] 5 10*3/uL 3.6 - 10.7 10*3/uL [facility] CBC WITH AUTO DIFFERENTIALon 08-15-2024 Basophils (Bld) [#/Vol] 0.0 10*3/uL Normal 0.0-0.2 [facility] Comment on above: Performed By: #### L [id number] ####De Icer: MARY SOTELO ([id number])[address] Basophils/100 WBC (Bld) 0.2 % Normal 0.0-2.0 [facility] Comment on above: Performed By: #### L [id number] ####De Icer: MARY SOTELO ([id number])[facility])[address] [place] [address] Eosinophils (Bld) [#/Vol] 0.0 10*3/uL Normal 0.0-0.5 [facility] Comment on above: Performed By: #### L [id number] ####De Icer: MARY SOTELO ([id number])[facility])[address] [place] [address] Eosinophils/100 WBC (Bld) 0.6 % Normal 0.0-6.0 [facility] Comment on above: Performed By: #### L [id number] ####De Icer: MARY SOTELO ([id number])[address] Erythrocyte distribution width (RBC) [Ratio] 15.9 % High 11.5-15.0 [facility] Comment on above: Performed By: #### L [id number] ####De Icer: MARY SOTELO ([id number])[address] Hematocrit (Bld) [Volume fraction] 30.3 % Low 35.0-47.0 [facility] Comment on above: Performed By: #### L [id number] ####De Icer: MARY SOTELO ([id number])[address] Hemoglobin (Bld) [Mass/Vol] 9.5 g/dL Low 11.7-16.0 [facility] Comment on above: Performed By: #### L [id number] ####De Icer: MARY SOTELO ([id number])[address] IMMATURE GRANS % 0.8 % Normal 0.0-2.0 [facility] Comment on above: Performed By: #### L [id number] ####De Icer: MARY SOTELO ([id number])[address] IMMATURE GRANS ABSOLUTE 0.0 10*3/uL Normal <0.1 [facility] Comment on above: Performed By: #### L [id number] ####De Icer: MARY SOTELO ([id number])[address] IPF 4 Normal [facility] Comment on above: Performed By: #### L [id number] ####De Icer: MARY SOTELO ([id number])[address] Lymphocytes (Bld) [#/Vol] 0.6 10*3/uL Low 1.0-4.3 [facility] Comment on above: Performed By: #### L [id number] ####De Icer: MARY SOTELO ([id number])[facility])[address] [place] [address] Lymphocytes/100 WBC (Bld) 12.7 % Low 15.0-45.0 [facility] Comment on above: Performed By: #### L [id number] ####De Icer: MARY SOTELO ([id number])[facility])[address] [place] [address] MCH (RBC) [Entitic mass] 29.0 pg Normal 26.0-34.0 [facility] Comment on above: Performed By: #### L [id number] ####De Icer: MARY SOTELO ([id number])[facility])[address] [place] [address] MCHC 31.4 % Normal 30.5-36.0 [facility] Comment on above: Performed By: #### L [id number] ####De Icer: MARY SOTELO ([id number])[facility])[address] [place] [address] MCV (RBC) [Entitic vol] 92.4 fL Normal 77.0-99.0 [facility] Comment on above: Performed By: #### L [id number] ####De Icer: MARY SOTELO ([id number])[facility])[address] [place] [address] Monocytes (Bld) [#/Vol] 0.4 10*3/uL Normal 0.0-0.9 [facility] Comment on above: Performed By: #### L [id number] ####De Icer: MARY SOTELO ([id number])[facility])[address] [place] [address] Monocytes/100 WBC (Bld) 7.3 % Normal 5.0-13.0 [facility] Comment on above: Performed By: #### L [id number] ####De Icer: MARY SOTELO ([id number])[facility] ([facility])[address] [place] [address] NEUTROPHILS ABSOLUTE 3.9 10*3/uL Normal 1.8-7.5 [facility] Comment on above: Performed By: #### L [id number] ####De Icer: MARY SOTELO ([id number])[facility] ([facility])[address] [place] [address] Neutrophils/100 WBC (Bld) 78.4 % Normal 38.0-82.0 [facility] Comment on above: Performed By: #### L [id number] ####De Icer: MARY SOTELO ([id number])[facility] ([facility])[address] [place] [address] NRBC 0.0 /100 WBCs Normal 0.0-2.0 [facility] Comment on above: Performed By: #### L [id number] ####De Icer: MARY SOTELO ([id number])[facility] ([facility])[address] [place] [address] Platelet mean volume (Bld) [Entitic vol] 10.1 fL Normal 9.0-12.7 [facility] Comment on above: Performed By: #### L [id number] ####De Icer: MARY SOTELO ([id number])[facility] ([facility])[address] [place] [address] Platelets (Bld) [#/Vol] 90 10*3/uL Low 140-440 [facility] Comment on above: Performed By: #### L [id number] ####De Icer: MARY SOTELO ([id number])[facility] ([facility])[address] [place] [address] RBC (Bld) [#/Vol] 3.28 10*6/uL Low 3.80-5.20 [facility] Comment on above: Performed By: #### L [id number] ####De Icer: MARY SOTELO ([id number])[facility] ([facility])[address] [place] [address] WBC (Bld) [#/Vol] 5.0 10*3/uL Normal 3.6-10.7 [facility] Comment on above: Performed By: #### L [id number] ####De Icer: MARY SOTELO ([id number])[facility] [place] [address] Calcium.ionized [Moles/Vol]O rdered By: Nicole Lakhani on 08-15-2024 Calcium.ionized (Bld) [Moles/Vol] 3.9 mg/dL Low 4.30 - 5.20 mg/dL [facility] Interpretation and review of laboratory results Abnormal [facility] PH, IONIZED CALCIUM 7.29 Low 7.31 - 7.46 [facility] IDNon 08-15-2024 IDN Normal [facility] Laboratory - Chemistry and C hemistry - challengeon 08-15-2024 Glucose [Mass/Vol] 344 mg/dL High 70 - 100 mg/dL [facility] Glucose [Mass/Vol] 368 mg/dL High 70 - 100 mg/dL [facility] Glucose [Mass/Vol] 340 mg/dL High 70 - 100 mg/dL [facility] Glucose [Mass/Vol] 302 mg/dL High 70 - 100 mg/dL [facility] Magnesium [Mass/Vol] 2.1 mg/dL 1.6 - 2 .3 mg/dL [facility] - Microbiology an d Antimicrobial susceptibilityOrdered By: Kaitlyn Corona on 08-15-2024 Bacteria identified Cx Nom (Bld) Staphylococcus epidermidis Critically abnormal [facility] - Miscellaneous t estson 08-15-2024 Service comment (Unsp spec) [Interp] 0.052 [facility] - Serology - non- microon 08-15-2024 Heparin induced platelet Ab Ql (S) Negative Negative [facility] MAGNESIUMon 08-15-2024 Magnesium [Mass/Vol] 2.1 mg/dL Normal 1.6-2.3 [facility] Comment on above: Performed By: #### L [id number], [id number], [id number] ####De Icer: MARY SOTELO ([phone])[facility] ([facility])[address] [place] [address] No Panel Informationon 08-15 Interpretation and review of laboratory results Abnormal [facility] Interpretation and review of laboratory results Abnormal [facility] Interpretation and review of laboratory results Abnormal [facility] Interpretation and review of laboratory results Abnormal [facility] Interpretation and review of laboratory results Normal [facility] PHOSPHORUSon 08-15-2024 Phosphate [Mass/Vol] 4.5 mg/dL Normal 2.5-4.5 [facility] Comment on above: Performed By: #### L AB113, [id number], LAB15 ####De Icer: MARY SOTELO ([id number])[facility] ([facility])[address] [place] [address] Phosphate [Moles/Vol]on 08-03 Phosphate [Mass/Vol] 4.5 mg/dL 2.5 - 4 .5 mg/dL [facility] Progress Noteon 08-15-2024 Progress Note Normal [facility] Progress Note Normal [facility] BASIC METABOLIC PANELon 08-03 Anion gap [Moles/Vol] 10 mmol/L Normal - [facility] Comment on above: Performed By: #### L AB113, [id number], LAB15 ####De Icer: MARY SOTELO ([id number])[facility] ([facility])[address] [place] [address] Calcium [Mass/Vol] 6.8 mg/dL Low 8.4-10.4 [facility] Comment on above: Performed By: #### L AB113, [id number], LAB15 ####De Icer: MARY SOTELO ([id number])[facility] ([facility])[address] [place] [address] [place] Chloride [Moles/Vol] 96 mmol/L Low 98-107 [facility] Comment on above: Performed By: #### L AB113, [id number], LAB15 ####De Icer: MARY SOTELO ([id number])[facility] [place] [address] [place] CO2 [Moles/Vol] 25 mmol/L Normal 22-30 [facility] Comment on above: Performed By: #### L AB113, [id number], LAB15 ####De Icer: MARY SOTELO ([id number])[facility] [place] [address] Creatinine [Mass/Vol] 1.91 mg/dL High 0.52-1.04 [facility] Comment on above: Performed By: #### L AB113, [id number], LAB15 ####De Icer: MARY SOTELO ([id number])[facility] ([facility])[address] [place] [address] [place] GLOMERULAR FILTRATION RATE ML/MIN/1.73 SQ M.PREDICTED 29.0 mL/min/1.73m*2 Low >60.0 [facility] Comment on above: Result Comment: Calc ulation based on the Chronic Kidney Disease Epidemiology Collaboration (CKD-EPI) equation refit without adjustment for race Performed By: #### L AB113, [id number], LAB15 ####De Icer: MARY SOTELO ([id number])[facility] ([facility])[address] [place] [address] [place] Glucose [Mass/Vol] 361 mg/dL High 70-100 [facility] Comment on above: Performed By: #### L AB113, [id number], LAB15 ####De Icer: MARY SOTELO ([id number])[facility] ([facility])[address] [place] [address] [place] Potassium [Moles/Vol] 3.5 mmol/L Normal 3.5-5.1 [facility] Comment on above: Performed By: #### L AB113, [id number], LAB15 ####De Icer: MARY SOTELO ([id number])[facility] ([facility])[address] [place] [address] [place] Sodium [Moles/Vol] 130 mmol/L Low 135-145 [facility] Comment on above: Performed By: #### L AB113, [id number], LAB15 ####De Icer: MARY SOTELO ([id number])[facility] ([facility])[address] [place] [address] Urea nitrogen [Mass/Vol] 18 mg/dL High 7-17 [facility] Comment on above: Performed By: #### L AB113, [id number], LAB15 ####De Icer: MARY SOTELO ([id number])[facility] ([facility])[address] [place] [address] BLOOD CULTUREon 08-14-2024 Bacteria identified Cx Nom (Bld) Normal [facility] Comment on above: Performed By: #### L [id number] ####De Icer: MARY SOTELO ([id number])[facility] ([facility])[address] [place] [address] Bacteria identified Cx Nom (Bld) Normal [facility] Comment on above: Performed By: #### L [id number] ####De Icer: MARY SOTELO ([id number])[facility] ([facility])[address] [place] [address] Basic metabolic 1998 panelon 08-14-2024 Anion gap [Moles/Vol] 10 mmol/L 3 - 13 mmol/L [facility] Calcium [Mass/Vol] 6.8 mg/dL Low 8.4 - 10. 4 mg/dL [facility] Chloride [Moles/Vol] 96 mmol/L Low 98 - 10 7 mmol/L [facility] CO2 [Moles/Vol] 25 mmol/L 22 - 30 mmol/L [facility] Creatinine [Mass/Vol] 1.91 mg/dL High 0.52 - 1.04 mg/dL [facility] GFR/1.73 sq M.predicted (S/P/Bld) [Vol rate/Area] 29 mL/min Low - PINF [facility] Glucose [Mass/Vol] 361 mg/dL High 70 - 100 mg/dL [facility] Interpretation and review of laboratory results Abnormal [facility] Potassium [Moles/Vol] 3.5 mmol/L 3.5 - 5.1 mmol/L [facility] Sodium [Moles/Vol] 130 mmol/L Low 135 - 145 mmol/L [facility] Urea nitrogen [Mass/Vol] 18 mg/dL High 7 - 17 mg/dL [facility] CBC W Auto Differential pane l (Bld)Ordered By: Wei Adamson on 08-14-2024 Basophils (Bld) [#/Vol] 0 10*3/uL 0.0 - 0.2 10*3/uL [facility] Basophils/100 WBC (Bld) 0.2 % 0.0 - 2.0 % [facility] Eosinophils (Bld) [#/Vol] 0 10*3/uL 0.0 - 0.5 10*3/uL [facility] Eosinophils/100 WBC (Bld) 0.2 % 0.0 - 6.0 % [facility] Erythrocyte distribution width (RBC) [Ratio] 16.4 % High 11.5 - 15.0 % [facility] Hematocrit (Bld) [Volume fraction] 28.7 % Low 35.0 - 47.0 % [facility] Hemoglobin (Bld) [Mass/Vol] 9.2 g/dL Low 11.7 - 16.0 g/dL [facility] Immature granulocytes (Bld) [#/Vol] 0 10*3/uL NINF - 0.1 10*3/uL [facility] Immature granulocytes/100 WBC (Bld) 0.6 % 0.0 - 2.0 % [facility] Interpretation and review of laboratory results Abnormal [facility] IPF 4 [facility] Lymphocytes (Bld) [#/Vol] 0.7 10*3/uL Low 1.0 - 4.3 10*3/uL [facility] Lymphocytes/100 WBC (Bld) 13.6 % Low 15.0 - 45.0 % [facility] MCH (RBC) [Entitic mass] 29.2 pg 26.0 - 34.0 pg [facility] MCHC (RBC) [Mass/Vol] 32.1 % 30.5 - 36.0 % [facility] MCV (RBC) [Entitic vol] 91.1 fL 77.0 - 99.0 fL [facility] Monocytes (Bld) [#/Vol] 0.4 10*3/uL 0.0 - 0.9 10*3/uL [facility] Monocytes/100 WBC (Bld) 8 % 5.0 - 13.0 % [facility] Neutrophils (Bld) [#/Vol] 4 10*3/uL 1.8 - 7.5 10*3/uL [facility] Neutrophils/100 WBC (Bld) 77.4 % 38.0 - 82.0 % [facility] Nucleated RBC/100 WBC (Bld) [Ratio] 0 % [facility] Platelet mean volume (Bld) [Entitic vol] 10.9 fL 9.0 - 12.7 fL [facility] Platelets (Bld) [#/Vol] 79 10*3/uL Low 140 - 440 10*3/uL [facility] RBC (Bld) [#/Vol] 3.15 10*6/uL Low 3.80 - 5.2 0 10*6/uL [facility] WBC (Bld) [#/Vol] 5.2 10*3/uL 3.6 - 10.7 10*3/uL [facility] CBC WITH AUTO DIFFERENTIALon 08-14-2024 Basophils (Bld) [#/Vol] 0.0 10*3/uL Normal 0.0-0.2 [facility] Comment on above: Performed By: #### L [id number] ####De Icer: MARY SOTELO ([id number])[address] Basophils/100 WBC (Bld) 0.2 % Normal 0.0-2.0 [facility] Comment on above: Performed By: #### L [id number] ####De Icer: MARY SOTELO ([id number])[facility])[address] [place] [address] Eosinophils (Bld) [#/Vol] 0.0 10*3/uL Normal 0.0-0.5 [facility] Comment on above: Performed By: #### L [id number] ####De Icer: MARY SOTELO ([id number])[facility])[address] [place] [address] Eosinophils/100 WBC (Bld) 0.2 % Normal 0.0-6.0 [facility] Comment on above: Performed By: #### L [id number] ####De Icer: MARY SOTELO ([id number])[facility])[address] [place] [address] Erythrocyte distribution width (RBC) [Ratio] 16.4 % High 11.5-15.0 [facility] Comment on above: Performed By: #### L [id number] ####De Icer: MARY SOTELO ([id number])[facility])[address] [place] [address] Hematocrit (Bld) [Volume fraction] 28.7 % Low 35.0-47.0 [facility] Comment on above: Performed By: #### L [id number] ####De Icer: MARY SOTELO ([id number])[facility])[address] [place] [address] Hemoglobin (Bld) [Mass/Vol] 9.2 g/dL Low 11.7-16.0 [facility] Comment on above: Performed By: #### L [id number] ####De Icer: MARY SOTELO ([id number])[facility])[address] [place] [address] IMMATURE GRANS % 0.6 % Normal 0.0-2.0 [facility] Comment on above: Performed By: #### L [id number] ####De Icer: MARY SOTELO ([id number])[address] IMMATURE GRANS ABSOLUTE 0.0 10*3/uL Normal <0.1 [facility] Comment on above: Performed By: #### L [id number] ####De Icer: MARY SOTELO ([id number])[facility])[address] [place] [address] IPF 4 Normal [facility] Comment on above: Performed By: #### L [id number] ####De Icer: MARY SOTELO ([id number])[facility])[address] [place] [address] Lymphocytes (Bld) [#/Vol] 0.7 10*3/uL Low 1.0-4.3 [facility] Comment on above: Performed By: #### L [id number] ####De Icer: MARY SOTELO ([id number])[facility])[address] [place] [address] Lymphocytes/100 WBC (Bld) 13.6 % Low 15.0-45.0 [facility] Comment on above: Performed By: #### L [id number] ####De Icer: MARY SOTELO ([id number])[facility])[address] [place] [address] MCH (RBC) [Entitic mass] 29.2 pg Normal 26.0-34.0 [facility] Comment on above: Performed By: #### L [id number] ####De Icer: MARY SOTELO ([id number])[facility])[address] [place] [address] MCHC 32.1 % Normal 30.5-36.0 [facility] Comment on above: Performed By: #### L [id number] ####De Icer: MARY SOTELO ([id number])[facility])[address] [place] [address] MCV (RBC) [Entitic vol] 91.1 fL Normal 77.0-99.0 [facility] Comment on above: Performed By: #### L [id number] ####De Icer: MARY SOTELO ([id number])[facility])[address] [place] [address] Monocytes (Bld) [#/Vol] 0.4 10*3/uL Normal 0.0-0.9 [facility] Comment on above: Performed By: #### L [id number] ####De Icer: MARY SOTELO ([id number])[facility])[address] [place] [address] Monocytes/100 WBC (Bld) 8.0 % Normal 5.0-13.0 [facility] Comment on above: Performed By: #### L [id number] ####De Icer: MARY SOTELO ([id number])[facility] ([facility])[address] [place] [address] NEUTROPHILS ABSOLUTE 4.0 10*3/uL Normal 1.8-7.5 [facility] Comment on above: Performed By: #### L [id number] ####De Icer: MARY SOTELO ([id number])[facility] ([facility])[address] [place] [address] Neutrophils/100 WBC (Bld) 77.4 % Normal 38.0-82.0 [facility] Comment on above: Performed By: #### L [id number] ####De Icer: MARY SOTELO ([id number])[facility] ([facility])[address] [place] [address] NRBC 0.0 /100 WBCs Normal 0.0-2.0 [facility] Comment on above: Performed By: #### L [id number] ####De Icer: MARY SOTELO ([id number])[facility] ([facility])[address] [place] [address] Platelet mean volume (Bld) [Entitic vol] 10.9 fL Normal 9.0-12.7 [facility] Comment on above: Performed By: #### L [id number] ####De Icer: MARY SOTELO ([id number])[facility] ([facility])[address] [place] [address] Platelets (Bld) [#/Vol] 79 10*3/uL Low 140-440 [facility] Comment on above: Performed By: #### L [id number] ####De Icer: MARY SOTELO ([id number])[facility] ([facility])[address] [place] [address] RBC (Bld) [#/Vol] 3.15 10*6/uL Low 3.80-5.20 [facility] Comment on above: Performed By: #### L [id number] ####De Icer: MARY SOTELO ([id number])[facility] [place] [address] WBC (Bld) [#/Vol] 5.2 10*3/uL Normal 3.6-10.7 [facility] Comment on above: Performed By: #### L [id number] ####De Icer: MARY SOTELO ([id number])[facility] ([facility])[address] [place] [address] IDNon 08-14-2024 IDN Normal [facility] - Chemistry and C hemistry - challengeon 08-14-2024 Glucose [Mass/Vol] 248 mg/dL High 70 - 100 mg/dL [facility] Glucose [Mass/Vol] 233 mg/dL High 70 - 100 mg/dL [facility] Glucose [Mass/Vol] 294 mg/dL High 70 - 100 mg/dL [facility] Glucose [Mass/Vol] 356 mg/dL High 70 - 100 mg/dL [facility] Magnesium [Mass/Vol] 2.1 mg/dL 1.6 - 2 .3 mg/dL [facility] MAGNESIUMon 08-14-2024 Magnesium [Mass/Vol] 2.1 mg/dL Normal 1.6-2.3 [facility] Comment on above: Performed By: #### L [id number], [id number], LAB15 ####De Icer: MARY SOTELO ([id number])[facility])[address] [place] [address] No Panel Informationon 08-14 Interpretation and review of laboratory results Abnormal [facility] Interpretation and review of laboratory results Abnormal [facility] Interpretation and review of laboratory results Abnormal [facility] Interpretation and review of laboratory results Abnormal [facility] Interpretation and review of laboratory results Normal [facility] PHOSPHORUSon 08-14-2024 Phosphate [Mass/Vol] 2.9 mg/dL Normal 2.5-4.5 [facility] Comment on above: Performed By: #### L AB113, [id number], LAB15 ####De Icer: MARY SOTELO ([id number])[facility] ([facility])[address] [place] [address] [place] Phosphate [Moles/Vol]on 08-03 Phosphate [Mass/Vol] 2.9 mg/dL 2.5 - 4 .5 mg/dL [facility] Progress Noteon 08-14-2024 Progress Note Normal [facility] Progress Note Normal [facility] Progress Note Normal [facility] Progress Note Normal [facility] BASIC METABOLIC PANELon 08-03 Anion gap [Moles/Vol] 11 mmol/L Normal 3-13 [facility] Comment on above: Performed By: #### L AB15, [id number], [id number] ####De Icer: MARY SOTELO ([id number])[facility])[address] [place] [address] Calcium [Mass/Vol] 7.1 mg/dL Low 8.4-10.4 [facility] Comment on above: Performed By: #### L AB15, [id number], [id number] ####De Icer: MARY SOTELO ([id number])[facility] ([facility])[address] [place] [address] [place] Chloride [Moles/Vol] 103 mmol/L Normal 98-107 [facility] Comment on above: Performed By: #### L AB15, [id number], [id number] ####De Icer: MARY SOTELO ([id number])[facility] ([facility])[address] [place] [address] [place] CO2 [Moles/Vol] 19 mmol/L Low 22-30 [facility] Comment on above: Performed By: #### L AB15, [id number], [id number] ####De Icer: MARY STOELO ([id number])[facility] ([facility])[address] [place] [address] [place] Creatinine [Mass/Vol] 2.43 mg/dL High 0.52-1.04 [facility] Comment on above: Performed By: #### L AB15, [id number], [id number] ####De Icer: MARY SOTELO ([id number])[facility])[address] [place] [address] GLOMERULAR FILTRATION RATE ML/MIN/1.73 SQ M.PREDICTED 21.7 mL/min/1.73m*2 Low >60.0 [facility] Comment on above: Result Comment: Calc ulation based on the Chronic Kidney Disease Epidemiology Collaboration (CKD-EPI) equation refit without adjustment for race Performed By: #### L AB15, [id number], [id number] ####De Icer: MARY SOTELO ([id number])[facility])[address] [place] [address] Glucose [Mass/Vol] 211 mg/dL High 70-100 [facility] Comment on above: Performed By: #### L AB15, [id number], [id number] ####De Icer: MARY SOTELO ([id number])[facility])[address] [place] [address] Potassium [Moles/Vol] 3.7 mmol/L Normal 3.5-5.1 [facility] Comment on above: Performed By: #### L AB15, [id number], [id number] ####De Icer: MARY SOTELO ([id number])[address] Sodium [Moles/Vol] 134 mmol/L Low 135-145 [facility] Comment on above: Performed By: #### L AB15, [id number], [id number] ####De Icer: MARY SOTELO ([id number])[address] Urea nitrogen [Mass/Vol] 18 mg/dL High 7-17 [facility] Comment on above: Performed By: #### L AB15, [id number], [id number] ####De Icer: MARY SOTELO ([id number])[facility])[address] [place] [address] BETA HYDROXYBUTYRATEon 08-13 BETA HYDROXYBUTYRATE 33.80 mg/dL High 0.20-2.81 [facility] Comment on above: Performed By: #### L AB89, [id number], [id number], [id number] ####De Icer: MARY SOTELO ([id number])[facility] ([facility])[address] [place] [address] BLOOD GAS ARTERIALon 024 Base excess Calc (Bld) [Moles/Vol] -3.2000 mmol/L Low -3.0-3.0 [facility] Comment on above: Performed By: #### L [id number] ####De Icer: MARY SOTELO ([id number])[facility] ([facility])[address] [place] [address] CO2 [Moles/Vol] 24.8 mmol/L Normal 23.0-27.0 [facility] Comment on above: Performed By: #### L AB76 ####De Icer: MARY SOTELO ([id number])[facility] ([facility])[address] [place] [address] HCO3 (Bld) [Moles/Vol] 23.3 mmol/L Normal 21.0-25.0 [facility] Comment on above: Performed By: #### L AB76 ####De Icer: MARY SOTELO ([id number])[facility] ([facility])[address] [place] [address] Hemoglobin (Bld) [Mass/Vol] 8.3 g/dL Normal Screen only [facility] Comment on above: Performed By: #### L AB76 ####De Icer: MARY SOTELO ([id number])[facility] ([facility])[address] [place] [address] OXYGEN SATURATION (%) IN ARTERIAL BLOOD 95.8 % Normal 95.0-100.0 [facility] Comment on above: Performed By: #### L AB76 ####De Icer: MARY SOTELO ([id number])[facility])[address] [place] [address] PCO2 ARTERIAL 49.4 mm Hg High >35.0-<45.0 [facility] Comment on above: Performed By: #### L [id number] ####De Icer: MARY SOTELO ([id number])[facility] ([facility])[address] [place] [address] PH ARTERIAL 7.291 Low 7.350-7.450 [facility] Comment on above: Performed By: #### L AB76 ####De Icer: MARY SOTELO ([id number])[facility] ([facility])[address] [place] [address] PO2 ARTERIAL 84.7 mm Hg Normal 80.0-100.0 [facility] Comment on above: Performed By: #### L [id number] ####De Icer: MARY SOTELO ([id number])[facility] ([facility])[address] [place] [address] SOURCE OF OXYGEN 30% Oxygen Normal [facility] Comment on above: Performed By: #### L AB76 ####De Icer: MARY SOTELO ([id number])[facility] ([facility])[address] [place] [address] CARECOORDon 08-13-2024 CARECOORD Normal [facility] CARECOORD Normal [facility] CBC W Auto Differential pane l (Bld)Ordered By: Elin Cline on 08-13-2024 Basophils (Bld) [#/Vol] 0 10*3/uL 0.0 - 0.2 10*3/uL [facility] Basophils/100 WBC (Bld) 0 % 0.0 - 2.0 % [facility] Eosinophils (Bld) [#/Vol] 0 10*3/uL 0.0 - 0.5 10*3/uL [facility] Eosinophils/100 WBC (Bld) 0 % 0.0 - 6.0 % [facility] Erythrocyte distribution width (RBC) [Ratio] 15.9 % High 11.5 - 15.0 % [facility] Hematocrit (Bld) [Volume fraction] 28.2 % Low 35.0 - 47.0 % [facility] Hemoglobin (Bld) [Mass/Vol] 9.2 g/dL Low 11.7 - 16.0 g/dL [facility] Immature granulocytes (Bld) [#/Vol] 0 10*3/uL NINF - 0.1 10*3/uL [facility] Immature granulocytes/100 WBC (Bld) 0.6 % 0.0 - 2.0 % [facility] Interpretation and review of laboratory results Abnormal [facility] IPF 3 [facility] Lymphocytes (Bld) [#/Vol] 0.3 10*3/uL Low 1.0 - 4.3 10*3/uL [facility] Lymphocytes/100 WBC (Bld) 9 % Low 15.0 - 45.0 % [facility] MCH (RBC) [Entitic mass] 29.4 pg 26.0 - 34.0 pg [facility] MCHC (RBC) [Mass/Vol] 32.6 % 30.5 - 36.0 % [facility] MCV (RBC) [Entitic vol] 90.1 fL 77.0 - 99.0 fL [facility] Monocytes (Bld) [#/Vol] 0.1 10*3/uL 0.0 - 0.9 10*3/uL [facility] Monocytes/100 WBC (Bld) 3.8 % Low 5.0 - 13.0 % [facility] Neutrophils (Bld) [#/Vol] 2.7 10*3/uL 1.8 - 7.5 10*3/uL [facility] Neutrophils/100 WBC (Bld) 86.6 % High 38.0 - 82.0 % [facility] Nucleated RBC/100 WBC (Bld) [Ratio] 0 % [facility] Platelet mean volume (Bld) [Entitic vol] 10.5 fL 9.0 - 12.7 fL [facility] Platelets (Bld) [#/Vol] 78 10*3/uL Low 140 - 440 10*3/uL [facility] RBC (Bld) [#/Vol] 3.13 10*6/uL Low 3.80 - 5.2 0 10*6/uL [facility] WBC (Bld) [#/Vol] 3.1 10*3/uL Low 3.6 - 10.7 10*3/uL [facility] CBC WITH AUTO DIFFERENTIALon 08-13-2024 Basophils (Bld) [#/Vol] 0.0 10*3/uL Normal 0.0-0.2 [facility] Comment on above: Performed By: #### L [id number] ####De Icer: MARY SOTELO ([id number])[facility])[address] [place] [address] Basophils/100 WBC (Bld) 0.0 % Normal 0.0-2.0 [facility] Comment on above: Performed By: #### L [id number] ####De Icer: MARY SOTELO ([phone])[facility])[address] [place] [address] Eosinophils (Bld) [#/Vol] 0.0 10*3/uL Normal 0.0-0.5 [facility] Comment on above: Performed By: #### L [id number] ####De Icer: MARY SOTELO ([id number])[address] Eosinophils/100 WBC (Bld) 0.0 % Normal 0.0-6.0 [facility] Comment on above: Performed By: #### L [id number] ####De Icer: MARY SOTELO ([id number])[facility])[address] [place] [address] Erythrocyte distribution width (RBC) [Ratio] 15.9 % High 11.5-15.0 [facility] Comment on above: Performed By: #### L [id number] ####De Icer: MARY SOTELO ([id number])[address] Hematocrit (Bld) [Volume fraction] 28.2 % Low 35.0-47.0 [facility] Comment on above: Performed By: #### L [id number] ####De Icer: MARY SOTELO ([id number])[facility])[address] [place] [address] Hemoglobin (Bld) [Mass/Vol] 9.2 g/dL Low 11.7-16.0 [facility] Comment on above: Performed By: #### L [id number] ####De Icer: MARY SOTELO ([id number])[facility] [address] IMMATURE GRANS % 0.6 % Normal 0.0-2.0 [facility] Comment on above: Performed By: #### L [id number] ####De Icer: MARY SOTELO ([id number])[facility])[address] [place] [address] IMMATURE GRANS ABSOLUTE 0.0 10*3/uL Normal <0.1 [facility] Comment on above: Performed By: #### L [id number] ####De Icer: MARY SOTELO ([id number])[address] IPF 3 Normal [facility] Comment on above: Performed By: #### L [id number] ####De Icer: MARY SOTELO ([id number])[address] Lymphocytes (Bld) [#/Vol] 0.3 10*3/uL Low 1.0-4.3 [facility] Comment on above: Performed By: #### L [id number] ####De Icer: MARY SOTELO ([id number])[address] Lymphocytes/100 WBC (Bld) 9.0 % Low 15.0-45.0 [facility] Comment on above: Performed By: #### L [id number] ####De Icer: MARY SOTELO ([id number])[facility])[address] [place] [address] MCH (RBC) [Entitic mass] 29.4 pg Normal 26.0-34.0 [facility] Comment on above: Performed By: #### L [id number] ####De Icer: MARY SOTELO ([id number])[address] MCHC 32.6 % Normal 30.5-36.0 [facility] Comment on above: Performed By: #### L [id number] ####De Icer: MARY SOTELO ([id number])[facility] ([facility])[address] [place] [address] MCV (RBC) [Entitic vol] 90.1 fL Normal 77.0-99.0 [facility] Comment on above: Performed By: #### L [id number] ####De Icer: MARY SOTELO ([id number])[facility] ([facility])[address] [place] [address] Monocytes (Bld) [#/Vol] 0.1 10*3/uL Normal 0.0-0.9 [facility] Comment on above: Performed By: #### L [id number] ####De Icer: MARY SOTELO ([id number])[facility] ([facility])[address] [place] [address] Monocytes/100 WBC (Bld) 3.8 % Low 5.0-13.0 [facility] Comment on above: Performed By: #### L [id number] ####De Icer: MARY SOTELO ([id number])[facility] ([facility])[address] [place] [address] NEUTROPHILS ABSOLUTE 2.7 10*3/uL Normal 1.8-7.5 [facility] Comment on above: Performed By: #### L [id number] ####De Icer: MARY SOTELO ([id number])[facility] ([facility])[address] [place] [address] Neutrophils/100 WBC (Bld) 86.6 % High 38.0-82.0 [facility] Comment on above: Performed By: #### L [id number] ####De Icer: MARY SOTELO ([id number])[facility] ([facility])[address] [place] [address] [place] NRBC 0.0 /100 WBCs Normal 0.0-2.0 [facility] Comment on above: Performed By: #### L [id number] ####De Icer: MARY SOTELO ([id number])[facility] ([facility] Platelet mean volume (Bld) [Entitic vol] 10.5 fL Normal 9.0-12.7 [facility] Comment on above: Performed By: #### L [id number] ####De Icer: MARY SOTELO ([id number])[facility])[address] [place] [address] Platelets (Bld) [#/Vol] 78 10*3/uL Low 140-440 [facility] Comment on above: Performed By: #### L [id number] ####De Icer: MARY SOTELO ([id number])[facility])[address] [place] [address] RBC (Bld) [#/Vol] 3.13 10*6/uL Low 3.80-5.20 [facility] Comment on above: Performed By: #### L [id number] ####De Icer: MARY SOTELO ([id number])[facility] ([facility])[address] [place] [address] WBC (Bld) [#/Vol] 3.1 10*3/uL Low 3.6-10.7 [facility] Comment on above: Performed By: #### L [id number] ####De Icer: MARY SOTELO ([id number])[facility])[address] [place] [address] Erythrocyte distribution width (RBC) [Ratio] 16.1 % High 11.5-15.0 [facility] Comment on above: Performed By: #### L [id number], [id number] ####De Icer: MARY SOTELO ([id number])[facility])[address] [place] [address] Hematocrit (Bld) [Volume fraction] 21.0 % Low 35.0-47.0 [facility] Comment on above: Performed By: #### L [id number], [id number] ####De Icer: MARY SOTELO ([id number])[address] Hemoglobin (Bld) [Mass/Vol] 6.7 g/dL Critically low 11.7-16.0 [facility] Comment on above: Performed By: #### Dora [id number], [id number] ####De Icer: MARY SOTELO ([id number])[facility] ([facility])[address] [place] [address] IPF 3 Normal [facility] Comment on above: Performed By: #### Dora [id number], [id number] ####De Icer: MARY SOTELO ([id number])[facility] ([facility])[address] [place] [address] MCH (RBC) [Entitic mass] 29.8 pg Normal 26.0-34.0 [facility] Comment on above: Performed By: #### Dora DUMAS, [id number] ####De Icer: MARY SOTELO ([id number])[facility])[address] [place] [address] MCHC 31.9 % Normal 30.5-36.0 [facility] Comment on above: Performed By: #### Dora DUMAS, [id number] ####De Icer: MARY SOTELO ([id number])[facility] ([facility])[address] [place] [address] MCV (RBC) [Entitic vol] 93.3 fL Normal 77.0-99.0 [facility] Comment on above: Performed By: #### Dora [id number], [id number] ####De Icer: MARY SOTELO ([id number])[facility] ([facility])[address] [place] [address] Platelet mean volume (Bld) [Entitic vol] 11.1 fL Normal 9.0-12.7 [facility] Comment on above: Performed By: #### L [id number], [id number] ####De Icer: MARY SOTELO ([id number])[facility])[address] [place] [address] Platelets (Bld) [#/Vol] 65 10*3/uL Low 140-440 [facility] Comment on above: Performed By: #### L [id number], [id number] ####De Icer: MARY SOTELO ([id number])[facility] [place] [address] RBC (Bld) [#/Vol] 2.25 10*6/uL Low 3.80-5.20 [facility] Comment on above: Performed By: #### L [id number], [id number] ####De Icer: MARY SOTELO ([id number])[facility] [place] [address] WBC (Bld) [#/Vol] 2.5 10*3/uL Low 3.6-10.7 [facility] Comment on above: Performed By: #### L [id number], [id number] ####De Icer: MARY SOTELO ([id number])[facility])[address] [place] [address] COMPLETE URINALYSISon 2023 BACTERIA (#/HPF) IN URINE Few Abnormal Negative [facility] Comment on above: Performed By: #### L [id number] ####De Icer: MARY SOTELO ([id number])[facility] ([facility])[address] [place] [address] BILIRUBIN, TOTAL PRESENCE IN URINE Negative Normal Negative [facility] Comment on above: Performed By: #### L [id number] ####De Icer: MARY SOTELO ([id number])[facility] [place] [address] Clarity (U) Extra Turbid Abnormal Clear [facility] Comment on above: Performed By: #### L [id number] ####De Icer: MARY SOTELO ([id number])[facility] [place] [address] Color (U) Yellow Normal Lt. Yellow [facility] Comment on above: Performed By: #### L [id number] ####De Icer: MARY SOTELO ([id number])[facility] ([facility])[address] [place] [address] GLUCOSE (MG/DL) IN URINE Normal Normal Normal (<70) [facility] Comment on above: Performed By: #### L [id number] ####De Icer: MARY SOTELO ([id number])[facility] ([facility])[address] [place] [address] HEMOGLOBIN PRESENCE IN URINE 0.2 mg/dL Abnormal Negative [facility] Comment on above: Performed By: #### L [id number] ####De Icer: MARY SOTELO ([id number])[facility] ([facility])[address] [place] [address] Ketones Ql (U) Trace Abnormal Negative [facility] Comment on above: Performed By: #### L [id number] ####De Icer: MARY SOTELO ([id number])[facility] ([facility])[address] [place] [address] LEUKOCYTE ESTERASE PRESENCE IN URINE BY TEST STRIP 500 Bere/uL Abnormal Negative [facility] Comment on above: Performed By: #### L [id number] ####De Icer: MARY SOTELO ([id number])[facility] ([facility])[address] [place] [address] MUCUS (#/LPF) IN URINE SEDIMENT Few Normal Negative [facility] Comment on above: Performed By: #### L [id number] ####De Icer: MARY SOTELO ([id number])[facility] ([facility])[address] [place] [address] NITRITE PRESENCE IN URINE Negative Normal Negative [facility] Comment on above: Performed By: #### L [id number] ####De Icer: MARY SOTELO ([id number])[facility])[address] [place] [address] NON-SQUAMOUS EPITHELIAL (#/HPF) IN URINE 0-2 Abnormal Negative [facility] Comment on above: Performed By: #### L [id number] ####De Icer: MARY SOTELO ([id number])[facility] [place] [address] pH (U) 5.5 [pH] Normal 5.0-8.0 [facility] Comment on above: Performed By: #### L [id number] ####De Icer: MARY SOTELO ([id number])[facility] ([facility])[address] [place] [address] Protein (U) [Mass/Vol] 100 mg/dL Abnormal Negative [facility] Comment on above: Performed By: #### L [id number] ####De Icer: MARY SOTELO ([id number])[facility] ([facility])[address] [place] [address] RBC (#/HPF) IN URINE SEDIMENT 11-25 Abnormal 0-2 [facility] Comment on above: Performed By: #### L [id number] ####De Icer: MARY SOTELO ([id number])[facility] ([facility])[address] [place] [address] Specific gravity (U) [Rel density] 1.021 Normal 1.005-1.030 [facility] Comment on above: Performed By: #### L [id number] ####De Icer: MARY SOTELO ([id number])[facility] ([facility])[address] [place] [address] SQUAMOUS EPITHELIAL CELLS (#/HPF) IN URINE SEDIMENT 0-2 Normal 3-5 [facility] Comment on above: Performed By: #### L [id number] ####De Icer: MARY SOTELO ([id number])[facility] ([facility])[address] [place] [address] [place] UROBILINOGEN (MG/DL) IN URINE Normal Normal Normal (0-1) [facility] Comment on above: Performed By: #### L [id number] ####De Icer: MARY SOTELO ([id number])[facility] ([facility])[address] [place] [address] WBC (LEUKOCYTE) (#/HPF) IN URINE SEDIMENT >100 Abnormal 0-5 [facility] Comment on above: Performed By: #### L [id number] ####De Icer: MARY SOTELO ([id number])[facility])[address] [place] [address] WBC (LEUKOCYTE) CLUMPS (#/HPF) IN URINE SEDIMENT Occasional Abnormal Negative [facility] Comment on above: Performed By: #### L [id number] ####De Icer: MARY SOTELO ([id number])[facility])[address] [place] [address] YEAST (#/HPF) IN URINE Many Abnormal Negative [facility] Comment on above: Performed By: #### L [id number] ####De Icer: MARY SOTELO ([id number])[address] Consulton 08-13-2024 Consult Normal [facility] Consult Normal [facility] Consult Normal [facility] HAPTOGLOBINon 08-13-2024 HAPTOGLOBIN 44.2 mg/dL Normal 30.0-200.0 [facility] Comment on above: Performed By: #### L AB89, [id number], [id number], [id number] ####De Icer: MARY SOTELO ([id number])[address] HEMOGLOBIN AND HEMATOCRIT, B LOODon 08-13-2024 Hematocrit (Bld) [Volume fraction] 28.3 % Low 35.0-47.0 [facility] Comment on above: Order Comment: Recom mend 1 hour post transfusion Performed By: #### L [id number] ####De Icer: MARY SOTELO ([id number])[facility])[address] [place] [address] Hemoglobin (Bld) [Mass/Vol] 9.2 g/dL Low 11.7-16.0 [facility] Comment on above: Order Comment: Recom mend 1 hour post transfusion Performed By: #### L [id number] ####De Icer: MARY SOTELO ([id number])[facility] [place] [address] Hematocrit (Bld) [Volume fraction] 27.5 % Low 35.0-47.0 [facility] Comment on above: Order Comment: Recom mend 1 hour post transfusion Performed By: #### L [id number] ####De Icer: MARY SOTELO ([id number])[facility])[address] [place] [address] Hemoglobin (Bld) [Mass/Vol] 8.7 g/dL Low 11.7-16.0 [facility] Comment on above: Order Comment: Recom mend 1 hour post transfusion Performed By: #### L [id number] ####De Icer: MARY SOTELO ([id number])[facility] ([facility])[address] [place] [address] HEPARIN-INDUCED PLATELET AB, REFL JONO UNFRAC HEP (BKR [facility])on 08-13-2024 [facility] HEPARIN INDUCED PLATELET ANTIBODY Negative Normal Negative [facility] Comment on above: Result Comment: This [...] Thromb Haemost 2008;6:1304-12). Performed By: #### L [id number] ####[facility] ([facility])[address] [place], [facility] PATIENT O.D. 0.052 Normal [facility] Comment on above: Result Comment: ____ ! O.D.units ! Result !! ! !! <=0.300 ! Negative !! >0.300 to <=0.500 ! Weak Positive !! >0.500 ! Positive !! ! !For additional information, please refer [email or web address].[email or web address](This link is being provided for informational/educational purposes only.)Test Performed by [facility],[address] [place] [address]Aymjbxremilia Wells M.D., Ph.D., Director of [phone], [place] [id number] Performed By: #### L [id number] ####[facility] ([facility])[address] [place] [address] [place] Hemoglobin (Bld) [Mass/Vol]O rdered By: Laurel Alva on 08-13-2024 Hematocrit (Bld) [Volume fraction] 28.3 % Low 35.0 - 47.0 % [facility] Interpretation and review of laboratory results Abnormal [facility] LACTATE DEHYDROGENASEon 08-03 LDH [Catalytic activity/Vol] 184 U/L Normal 120-246 [facility] Comment on above: Performed By: #### L AB89, [id number], [id number], LAB96 ####De Icer: MARY SOTELO ([id number])[facility] ([facility])[address] [place] [address] LACTIC ACID WITH REFLEXon Lactate [Moles/Vol] mmol/L Low 0.7-2.0 [facility] Comment on above: Performed By: #### L [id number] ####De Icer: MARY SOTELO ([id number])[facility] ([facility])[address] [place] [address] Laboratory - Chemistry and C hemistry - challengeon 08-13-2024 Glucose [Mass/Vol] 310 mg/dL High 70 - 100 mg/dL [facility] Glucose [Mass/Vol] 259 mg/dL High 70 - 100 mg/dL [facility] Glucose [Mass/Vol] 176 mg/dL High 70 - 100 mg/dL [facility] Troponin I.cardiac [Mass/Vol] 0.074 ng/mL High NINF - 0.034 ng/mL [facility] Glucose [Mass/Vol] 307 mg/dL High 70 - 100 mg/dL [facility] Troponin I.cardiac [Mass/Vol] 0.07 ng/mL High NINF - 0.034 ng/mL [facility] Troponin I.cardiac [Mass/Vol] 0.065 ng/mL High NINF - 0.034 ng/mL [facility] Glucose [Mass/Vol] 259 mg/dL High 70 - 100 mg/dL [facility] Troponin I.cardiac [Mass/Vol] 0.073 ng/mL High NINF - 0.034 ng/mL [facility] Lactate [Moles/Vol] mmol/L Low 0.7 - 2. 0 mmol/L [facility] Base excess Calc (Bld) [Moles/Vol] -3.2000 mmol/L Low -3.0 - 3.0 mmol/L [facility] CO2 (Bld) [Partial pressure] 49.4 mm[Hg] High - PINF [facility] CO2 [Moles/Vol] 24.8 mmol/L 23.0 - 27.0 mmol/L [facility] HCO3 (Bld) [Moles/Vol] 23.3 mmol/L 21.0 - 25.0 mmol/L [facility] Oxygen (Bld) [Partial pressure] 84.7 mm[Hg] [facility] pH (Bld) 7.291 [pH] Low 7.350 - 7.450 [facility] Beta hydroxybutyrate [Mass/Vol] 33.8 mg/dL High 0.20 - 2.81 mg/dL [facility] Laboratory - Hematology and Cell countson 08-13-2024 Haptoglobin [Mass/Vol] 44.2 mg/dL 30.0 - 200.0 mg/dL [facility] Hemoglobin (Bld) [Mass/Vol] 8.3 g/dL Screen only [facility] Anisocytosis Ql (Bld) Slight Abnormal (none) [facility] Band form neutrophils (Bld) [#/Vol] 0.1 10*3/uL High NINF - 0.0 10*3/uL [facility] Band form neutrophils/100 WBC (Bld) 2 % High NINF - 0 % [facility] Basophilic stippling LM Ql (Bld) Slight Abnormal (none) [facility] Lymphocytes (Bld) [#/Vol] 0.2 10*3/uL Low 1.0 - 4.3 10*3/uL [facility] Lymphocytes/100 WBC (Bld) 7 % Low 15 - 45 % [facility] Microcytes Ql (Bld) Slight Abnormal (none) [facility] Monocytes (Bld) [#/Vol] 0 10*3/uL 0.0 - 0.9 10*3/uL [facility] Monocytes/100 WBC (Bld) 0 % Low 5 - 13 % [facility] Neutrophils (Bld) [#/Vol] 2.3 10*3/uL 1.8 - 7.5 10*3/uL [facility] Polychromasia LM Ql (Bld) Slight Abnormal (none) [facility] RBC morphology finding Nom (Bld) abnormal [facility] Segmented neutrophils/100 WBC (Bld) 91 % High 38 - 82 % [facility] Laboratory - Hematology and Cell countsOrdered By: Laurel Alva on 08-13-2024 Hemoglobin (Bld) [Mass/Vol] 9.2 g/dL Low 11.7 - 16.0 g/dL [facility] MAGNESIUMon 08-13-2024 Magnesium [Mass/Vol] 1.5 mg/dL Low 1.6-2.3 [facility] Comment on above: Performed By: #### L AB15, [id number], [id number] ####De Icer: MARY SOTELO ([id number])[facility] ([facility])[address] [place] [address] MANUAL DIFFERENTIAL (CELLAVI ESPINOZA)on 08-13-2024 ANISOCYTOSIS PRESENCE IN BLOOD BY LIGHT MICROSCOPY Slight Abnormal (none) [facility] Comment on above: Performed By: #### L [id number], [id number] ####De Icer: MARY SOTELO ([id number])[facility] ([facility])[address] [place] [address] BAND NEUTROPHILS TOTAL PER COUNTED LEUKOCYTES BY MANUAL COUNT 2 Normal [facility] Comment on above: Performed By: #### L [id number], [id number] ####De Icer: MARY SOTELO ([id number])[facility])[address] [place] [address] BANDS (10*3/UL) IN BLOOD-CELLAVISION 0.1 10*3/uL High <=0.0 [facility] Comment on above: Performed By: #### L [id number], [id number] ####De Icer: MARY SOTELO ([id number])[facility] ([facility])[address] [place] [address] BASOPHILIC STIPPLING PRESENCE IN BLOOD BY LIGHT MICROSCOPY Slight Abnormal (none) [facility] Comment on above: Performed By: #### L [id number], [id number] ####De Icer: MARY SOTELO ([id number])[facility])[address] [place] [address] BASOPHILS TOTAL PER COUNTED LEUKOCYTES BY MANUAL COUNT Normal [facility] Comment on above: Performed By: #### L [id number], [id number] ####De Icer: MARY SOTELO ([id number])[facility])[address] [place] [address] BLASTS TOTAL PER COUNTED LEUKOCYTES BY MANUAL COUNT [facility] Comment on above: Performed By: #### L [id number], [id number] ####De Icer: MARY SOTELO ([id number])[facility])[address] [place] [address] EOSINOPHILS TOTAL PER COUNTED LEUKOCYTES BY MANUAL COUNT [facility] Comment on above: Performed By: #### L [id number], [id number] ####De Icer: MARY SOTELO ([phone])[facility])[address] [place] [address] LYMPHOCYTES (10*3/UL) IN BLOOD-CELLAVISION 0.2 10*3/uL Low 1.0-4.3 [facility] Comment on above: Performed By: #### L [id number], [id number] ####De Icer: MARY SOTELO ([id number])[facility] ([facility])[address] [place] [address] [place] LYMPHOCYTES TOTAL PER COUNTED LEUKOCYTES BY MANUAL COUNT 7 Normal [facility] Comment on above: Performed By: #### L [id number], [id number] ####De Icer: MARY SOTELO ([id number])[facility] ([facility])[address] [place] [address] [place] LYMPHOCYTES/100 LEUKOCYTES IN BLOOD-CELLAVISION 7 % Low 15-45 [facility] Comment on above: Performed By: #### L [id number], [id number] ####De Icer: MARY SOTELO ([id number])[facility] ([facility])[address] [place] [address] METAMYELOCYTES TOTAL PER COUNTED LEUKOCYTES BY MANUAL COUNT Normal [facility] Comment on above: Performed By: #### Dora [id number], [id number] ####De Icer: MARY SOTELO ([phone])[facility] [place] [address] [place] MICROCYTES (PRESENCE) IN BLOOD BY LIGHT MICROSCOPY Slight Abnormal (none) [facility] Comment on above: Performed By: #### L [id number], [id number] ####De Icer: MARY SOTELO ([id number])[facility] ([facility])[address] [place] [address] [place] MONOCYTES (10*3/UL) IN BLOOD-CELLAVISION 0.0 10*3/uL Normal 0.0-0.9 [facility] Comment on above: Performed By: #### L [id number], [id number] ####De Icer: MARY SOTELO ([id number])[facility] ([facility])[address] [place] [address] [place] MONOCYTES TOTAL PER COUNTED LEUKOCYTES BY MANUAL COUNT 0 Normal [facility] Comment on above: Performed By: #### L [id number], [id number] ####De Icer: MARY SOTELO ([id number])[facility] ([facility])[address] [place] [address] [place] MONOCYTES/100 LEUKOCYTES IN BLOOD-KACEY 0 % Low 5-13 [facility] Comment on above: Performed By: #### L [id number], [id number] ####De Icer: MARY SOTELO ([id number])[facility] [place] [address] [place] MYELOCYTES COUNTED BY MANUAL COUNT Normal [facility] Comment on above: Performed By: #### L [id number], [id number] ####De Icer: MARY SOTELO ([id number])[facility] [place] [address] [place] NEUTROPHILS BAND FORM/100 LEUKOCYTES IN BLOOD-CELLAVISI 2 % High <=0 [facility] Comment on above: Performed By: #### L [id number], [id number] ####De Icer: MARY SOTELO ([id number])[facility] [place] [address] [place] NEUTROPHILS TOTAL PER COUNTED LEUKOCYTES BY MANUAL COUNT 90 Normal [facility] Comment on above: Performed By: #### L [id number], [id number] ####De Icer: MARY SOTELO ([id number])[facility] ([facility])[address] [place] [address] [place] POLYCHROMASIA IN BLOOD BY LIGHT MICROSCOPY Slight Abnormal (none) [facility] Comment on above: Performed By: #### L [id number], [id number] ####De Icer: MARY SOTELO ([id number])[facility] ([facility])[address] [place] [address] [place] PROMYELOCYTES TOTAL PER COUNTED LEUKOCYTES BY MANUAL COUNT Normal [facility] Comment on above: Performed By: #### L [id number], [id number] ####De Icer: MARY SOTELO ([id number])[facility] ([facility])[address] [place] [address] [place] RBC MORPHOLOGY IN BLOOD abnormal Normal [facility] Comment on above: Performed By: #### L [id number], [id number] ####De Icer: MARY SOTELO ([id number])[facility] [place] [address] SEGMENTED NEUTROPHILS (10*3/UL) IN BLOOD-CELLAVISION 2.3 10*3/uL Normal 1.8-7.5 [facility] Comment on above: Performed By: #### L [id number], [id number] ####De Icer: MARY SOTELO ([id number])[facility] [place] [address] SEGMENTED NEUTROPHILS/100 LEUKOCYTES-CE 91 % High 38-82 [facility] Comment on above: Performed By: #### L [id number], [id number] ####De Icer: MARY SOTELO ([id number])[facility] ([facility])[address] [place] [address] UNCLASSIFIED CELLS TOTAL PER COUNTED LEUKOCYTES BY MANUAL COUNT [facility] Comment on above: Performed By: #### Dora [id number], [id number] ####De Icer: MARY SOTELO ([id number])[facility] ([facility])[address] [place] [address] VARIANT LYMPHOCYTES TOTAL PER COUNTED LEUKOCYTES BY MANUAL COUNT [facility] Comment on above: Performed By: #### L [id number], [id number] ####De Icer: MARY SOTELO ([id number])[facility])[address] [place] [address] No Panel Informationon 08-13 Interpretation and review of laboratory results Abnormal [facility] Interpretation and review of laboratory results Abnormal [facility] Interpretation and review of laboratory results Abnormal [facility] Interpretation and review of laboratory results Abnormal [facility] Interpretation and review of laboratory results Normal [facility] Interpretation and review of laboratory results Abnormal [facility] Interpretation and review of laboratory results Abnormal [facility] Interpretation and review of laboratory results Abnormal [facility] Source Of Oxygen 30% Oxygen [facility] Interpretation and review of laboratory results Abnormal [facility] Bands Manual 2 [facility] Lymphocytes Manual 7 [facility] Monocytes Manual 0 [facility] He alth Neutrophils Manual 90 [facility] No Panel InformationOrdered By: Tanisha Main on 08-13-2024 Interpretation and review of laboratory results Abnormal [facility] mecA/C (MRSE/MRSL) Detected Abnormal Not Detected [facility] Staphylococcus epidermidis Detected Abnormal Not Detected [facility] Nursing Noteon 08-13-2024 Nursing Note Normal [facility] PHOSPHORUSon 08-13-2024 Phosphate [Mass/Vol] 3.0 mg/dL Normal 2.5-4.5 [facility] Comment on above: Performed By: #### L [id number], [id number], [id number] ####De Icer: MARY SOTELO ([id number])[facility])[address] [place] [address] PROTIME AND APTTon aPTT Coag (Bld) [Time] 29.6 s Normal 20.0-30.5 [facility] Comment on above: Performed By: #### L [id number] ####De Icer: MARY SOTELO ([id number])[facility])[address] [place] [address] INR Coag (PPP) [Relative time] 1.0 {INR} Normal 0.9-1.1 [facility] Comment on above: Result Comment: Elias [...] prevent Myocardial Infarction Performed By: #### L [id number] ####De Icer: MARY SOTELO ([id number])[facility] ([facility])[address] [place] [address] PT Coag (PPP) [Time] 11.6 s Normal 9.0-12.0 [facility] Comment on above: Performed By: #### L [id number] ####De Icer: MARY SOTELO ([id number])[facility] [place] [address] Progress Noteon 08-13-2024 Progress Note Chart reviewed, as I was notified via Epic of patient's readmission to [facility] yesterday (08/12) with altered mental status. Closing patient's transitional program at this time d/t her readmission. Normal [facility] Progress Note Normal [facility] Progress Note Normal [facility] RESPIRATORY PATHOGENS PANEL BY PCRon 08-13-2024 RESPIRATORY PATHOGENS PANEL BY PCR Normal [facility] Comment on above: Performed By: #### L [id number] ####De Icer: MARY SOTELO ([id number])[facility] ([facility])[address] [place] [address] Respiratory pathogens DNA an d RNA panel MARISA+non-probe (Nph)on 08-13-2024 Adenovirus Not detected Not Detected [facility] B. pertussis DNA MARISA+probe Ql (Unsp spec) Not detected Not Detected [facility] Bordetella parapertussis Not detected Not Detected [facility] Chlamydia pneumoniae Not detected Not Detected [facility] Coronavirus 229E Not detected Not Detected [facility] Coronavirus HKU1 Not detected Not Detected [facility] Coronavirus NL63 Not detected Not Detected [facility] Coronavirus OC43 Not detected Not Detected [facility] FLUAV RNA MARISA+non-probe Ql (Nph) Not detected Not Detected [facility] FLUBV RNA MARISA+non-probe Ql (Nph) Not detected Not Detected [facility] Human Metapneumovirus Not detected Not Detected [facility] Rhinovirus/Enterovirus Not detected Not Detected [facility] Interpretation and review of laboratory results Normal [facility] Mycoplasma pneumoniae Not detected Not Detected [facility] Parainfluenza 1 Not detected Not Detected [facility] Parainfluenza 2 Not detected Not Detected [facility] Parainfluenza 3 Not detected Not Detected [facility] Parainfluenza 4 Not detected Not Detected [facility] Respiratory Syncytial Virus Not detected Not Detected [facility] SARS-CoV-2 (COVID-19) RNA MARISA+non-probe Ql (Nph) Not detected Not Detected [facility] TROPONIN Ion 08-13-2024 Troponin I.cardiac [Mass/Vol] 0.074 ng/mL High <0.034 [facility] Comment on above: Result Comment: BINA Olivarez COMMENTS:Patients with high levels of Biotin oral intake (ie >5 mg/day) may have falsely decreased Troponin levels. Performed By: #### L [id number] ####De Icer: MARY SOTELO ([id number])[facility])[address] [place] [address] Troponin I.cardiac [Mass/Vol] 0.070 ng/mL High <0.034 [facility] Comment on above: Result Comment: BINA R COMMENTS:Patients with high levels of Biotin oral intake (ie >5 mg/day) may have falsely decreased Troponin levels. Performed By: #### L [id number] ####De Icer: MARY SOTELO ([id number])[address] Troponin I.cardiac [Mass/Vol] 0.073 ng/mL High <0.034 [facility] Comment on above: Result Comment: BINA Olivarez COMMENTS:Patients with high levels of Biotin oral intake (ie >5 mg/day) may have falsely decreased Troponin levels. Performed By: #### L [id number] ####De Icer: MARY SOTELO ([id number])[address] TROPONIN, WITH SERIAL REFLEX on 08-13-2024 Troponin I.cardiac [Mass/Vol] 0.065 ng/mL High <0.034 [facility] Comment on above: Result Comment: BINA R COMMENTS:Patients with high levels of Biotin oral intake (ie >5 mg/day) may have falsely decreased Troponin levels. Performed By: #### L AB89, [id number], [id number], [id number] ####De Icer: MARY SOTELO ([id number])[address] Troponin I.cardiac [Mass/Vol ]on 08-13-2024 Interpretation and review of laboratory results Abnormal [facility] Interpretation and review of laboratory results Abnormal [facility] Interpretation and review of laboratory results Abnormal [facility] Interpretation and review of laboratory results Abnormal [facility] URINE CULTUREon 08-13-2024 Bacteria identified Cx Nom (U) Normal [facility] Comment on above: Performed By: #### L [id number] ####De Icer: MARY SOTELO ([id number])[facility] ([facility])[address] Urinalysis complete panel (U )on 08-13-2024 Bacteria LM.HPF (Urine sed) [#/Area] Few Abnormal Negative /HPF [facility] Bilirubin Ql (U) Negative Negative mg/dL [facility] Clarity (U) Extra Turbid Abnormal [facility]U) Yellow Lt. Yellow [facility] Epithelial cells.squamous LM.HPF (Urine sed) [#/Area] 0-2 [facility] h Glucose Ql (U) Normal Normal (<70) mg/dL [facility] Hemoglobin Ql (U) 0.2 mg/dL Abnormal Negative [facility] ealth Interpretation and review of laboratory results Abnormal [facility] Ketones (U) [Mass/Vol] Trace Abnormal Negat pawan mg/dL [facility] Leukocyte clumps LM.HPF (Urine sed) [#/Area] Occasional Abnormal Negative /HPF [facility] Leukocyte esterase Test strip Ql (U) 500 Abnormal Negative Bere/uL [facility] Mucus LM.HPF (Urine sed) [#/Area] Few Negative /LPF [facility] Nitrite Ql (U) Negative Negative [facility] th Non-Squamous Epithalial Cells, Urine 0-2 Abnormal Negative /HPF [facility] pH (U) 5.5 [pH] 5.0 - 8.0 pH [facility] Protein (U) [Mass/Vol] 100 mg/dL Abnormal Negative [facility] RBC LM.HPF (Urine sed) [#/Area] 11-25 Abnormal [facility] Specific gravity (U) [Rel density] 1.021 1.005 - 1.030 [facility] Urobilinogen (U) [Mass/Vol] Normal Normal (0-1) mg/dL [facility] WBC LM.HPF (Urine sed) [#/Area] /[HPF] Abnormal [facility] Yeast.budding LM.HPF (Urine sed) [#/Area] Many Abnormal Negative /HPF [facility] BASIC METABOLIC PANELon 10-1 0-2023 Anion gap [Moles/Vol] 4 mmol/L Normal 3-13 [facility] Comment on above: Performed By: #### L [id number], LAB15, [id number] ####De Icer: MARY SOTELO ([id number])[facility] ([facility])[address] [place] [address] Calcium [Mass/Vol] 6.6 mg/dL Low 8.4-10.4 [facility] Comment on above: Performed By: #### L [id number], LAB15, [id number] ####De Icer: MARY SOTELO ([id number])[facility] ([facility])[address] [place] [address] Chloride [Moles/Vol] 100 mmol/L Normal 98-107 [facility] Comment on above: Performed By: #### Dora MOSELEY, LAB15, [id number] ####De Icer: MARY SOTELO ([id number])[facility] ([facility])[address] [place] [address] [place] CO2 [Moles/Vol] 28 mmol/L Normal 22-30 [facility] Comment on above: Performed By: #### Dora [id number], LAB15, [id number] ####De Icer: MARY SOTELO ([id number])[facility] [place] [address] Creatinine [Mass/Vol] 2.38 mg/dL High 0.52-1.04 [facility] Comment on above: Performed By: #### L [id number], LAB15, [id number] ####De Icer: MARY SOTELO ([id number])[facility] [place] [address] [place] GLOMERULAR FILTRATION RATE ML/MIN/1.73 SQ M.PREDICTED 22.3 mL/min/1.73m*2 Low >60.0 [facility] Comment on above: Result Comment: Calc ulation based on the Chronic Kidney Disease Epidemiology Collaboration (CKD-EPI) equation refit without adjustment for race Performed By: #### L [id number], LAB15, [id number] ####De Icer: MARY SOTELO ([id number])[facility] ([facility])[address] [place] [address] Glucose [Mass/Vol] 229 mg/dL High 70-100 [facility] Comment on above: Performed By: #### L [id number], LAB15, [id number] ####De Icer: MARY SOTELO ([id number])[facility])[address] [place] [address] Potassium [Moles/Vol] 3.6 mmol/L Normal 3.5-5.1 [facility] Comment on above: Performed By: #### L [id number], LAB15, [id number] ####De Icer: MARY SOTELO ([id number])[facility] ([facility])[address] [place] [address] Sodium [Moles/Vol] 132 mmol/L Low 135-145 [facility] Comment on above: Performed By: #### L [id number], LAB15, [id number] ####De Icer: MARY SOTELO ([id number])[facility])[address] [place] [address] [place] Urea nitrogen [Mass/Vol] 19 mg/dL High 7-17 [facility] Comment on above: Performed By: #### L [id number], LAB15, [id number] ####De Icer: MARY SOTELO ([id number])[facility])[address] [place] [address] BLOOD CULTUREon 08-12-2024 Bacteria identified Cx Nom (Bld) Normal [facility] Comment on above: Performed By: #### L [id number] ####De Icer: MARY [id number])[facility] [place] [address] Performed By: #### L [id number], [id number] ####De Icer: MARY SOTELO ([id number])[facility] ([facility])[address] [place] [address] BLOOD CULTURE IDENTIFICATION - AEROBICon 08-12-2024 BLOOD CULTURE IDENTIFICATION - AEROBIC Normal [facility] Comment on above: Performed By: #### L [id number], [id number] ####De Icer: MARY SOTELO ([id number])[facility] ([facility])[address] [place] [address] BLOOD GAS, VENOUSon 08-12-20 Base excess Calc (BldV) [Moles/Vol] -2.5000 mmol/L Normal -3.0-3.0 [facility] Comment on above: Performed By: #### L [id number] ####De Icer: MARY SOTELO ([id number])[facility] ([facility])[address] [place] [address] CO2 [Moles/Vol] 26.1 mmol/L Normal 24.0-28.0 [facility] Comment on above: Performed By: #### L [id number] ####De Icer: MARY SOTELO ([id number])[facility] ([facility])[address] [place] [address] HCO3 (Bld) [Moles/Vol] 24.5 mmol/L Normal 23.0-27.0 [facility] Comment on above: Performed By: #### L [id number] ####De Icer: MARY SOTELO ([id number])[facility] ([facility])[address] [place] [address] Hemoglobin (Bld) [Mass/Vol] 9.6 g/dL Normal Screen only [facility] Comment on above: Performed By: #### L [id number] ####De Icer: MARY SOTELO ([id number])[facility] ([facility])[address] [place] [address] OXYGEN (MM HG) IN VENOUS BLOOD 57.8 mm Hg Normal [facility] Comment on above: Performed By: #### L [id number] ####De Icer: MARY SOTELO ([id number])[address] OXYGEN SATURATION (%) IN VENOUS BLOOD 89.0 % Normal [facility] Comment on above: Performed By: #### L [id number] ####De Icer: MARY SOTELO ([id number])[address] PCO2, ROHIT 53.4 mm Hg Normal 40.0-55.0 [facility] Comment on above: Performed By: #### L [id number] ####De Icer: MARY SOTELO ([id number])[address] PH VENOUS 7.279 Low 7.330-7.430 [facility] Comment on above: Performed By: #### L [id number] ####De Icer: MARY SOTELO ([id number])[address] SOURCE OF OXYGEN 30% Oxygen Normal [facility] Comment on above: Result Comment: BINA Olivarez COMMENTS:Assessment of oxygenation is best done with an arterial blood gas determination. Reference ranges for pO2, bicarbonate, and base excess are for mixed venous blood. Specimens drawn from a peripheral vein will often have higher values. Performed By: #### L [id number] ####De Icer: MARY SOTELO ([id number])[facility])[address] [place] [address] Base excess Calc (BldV) [Moles/Vol] -1.4000 mmol/L Normal -3.0-3.0 [facility] Comment on above: Performed By: #### L [id number] ####De Icer: MARY SOTELO ([id number])[address] CO2 [Moles/Vol] 27.7 mmol/L Normal 24.0-28.0 [facility] Comment on above: Performed By: #### L [id number] ####De Icer: MARY SOTELO ([id number])[facility] ([facility])[address] [place] [address] HCO3 (Bld) [Moles/Vol] 25.9 mmol/L Normal 23.0-27.0 [facility] Comment on above: Performed By: #### L [id number] ####De Icer: MARY SOTELO ([id number])[facility])[address] [place] [address] Hemoglobin (Bld) [Mass/Vol] 7.7 g/dL Normal Screen only [facility] Comment on above: Performed By: #### L [id number] ####De Icer: MARY SOTELO ([id number])[facility])[address] [place] [address] OXYGEN (MM HG) IN VENOUS BLOOD 73.2 mm Hg Normal [facility] Comment on above: Performed By: #### L [id number] ####De Icer: MARY SOTELO ([id number])[facility])[address] [place] [address] OXYGEN SATURATION (%) IN VENOUS BLOOD 94.9 % Normal [facility] Comment on above: Performed By: #### L [id number] ####De Icer: MARY SOTELO ([id number])[facility])[address] [place] [address] PCO2, ROHIT 58.7 mm Hg High 40.0-55.0 [facility] Comment on above: Performed By: #### L [id number] ####De Icer: MARY SOTELO ([id number])[facility])[address] [place] [address] PH VENOUS 7.262 Low 7.330-7.430 [facility] Comment on above: Performed By: #### L [id number] ####De Icer: MARY SOTELO ([id number])[facility])[address] [place] [address] SOURCE OF OXYGEN Bi-PAP Normal [facility] Comment on above: Result Comment: BINA Juanis COMMENTS:Interpret with caution, PO2 value falsely increased due to vacuum in tube. For accurate results, please draw in a syringe.Assessment of oxygenation is best done with an arterial blood gas determination. Reference ranges for pO2, bicarbonate, and base excess are for mixed venous blood. Specimens drawn from a peripheral vein will often have higher values. Performed By: #### L [id number] ####De Icer: MARY SOTELO ([id number])[facility])[address] [place] [address] Base excess Calc (BldV) [Moles/Vol] -0.7000 mmol/L Normal -3.0-3.0 [facility] Comment on above: Performed By: #### L [id number] ####De Icer: MARY SOTELO ([id number])[facility])[address] [place] [address] CO2 [Moles/Vol] 33.5 mmol/L High 24.0-28.0 [facility] Comment on above: Performed By: #### L [id number] ####De Icer: MARY SOTELO ([id number])[facility])[address] [place] [address] HCO3 (Bld) [Moles/Vol] 30.4 mmol/L High 23.0-27.0 [facility] Comment on above: Performed By: #### L [id number] ####De Icer: MARY SOTELO ([id number])[facility])[address] [place] [address] Hemoglobin (Bld) [Mass/Vol] 9.1 g/dL Normal Screen only [facility] Comment on above: Performed By: #### L [id number] ####De Icer: MARY SOTELO ([id number])[facility])[address] [place] [address] OXYGEN (MM HG) IN VENOUS BLOOD 44.4 mm Hg Normal [facility] Comment on above: Performed By: #### L [id number] ####De Icer: MARY SOTELO ([id number])[facility] ([facility])[address] [place] [address] OXYGEN SATURATION (%) IN VENOUS BLOOD 74.5 % Normal [facility] Comment on above: Performed By: #### L [id number] ####De Icer: MARY SOTELO ([id number])[facility] [place] [address] PCO2, ROHIT 101.8 mm Hg High 40.0-55.0 [facility] Comment on above: Performed By: #### L [id number] ####De Icer: MARY SOTELO ([id number])[facility] ([facility])[address] [place] [address] PH VENOUS 7.093 Low 7.330-7.430 [facility] Comment on above: Performed By: #### L [id number] ####De Icer: MARY SOTELO ([id number])[facility] [place] [address] SOURCE OF OXYGEN Nasal cannula Normal [facility] Comment on above: Result Comment: 4 [...] a syringe. Performed By: #### L [id number] ####De Icer: MARY SOTELO ([id number])[facility] ([facility])[address] [place] [address] BLOOD TYPE AND SCREEN GELon 08-12-2024 ABO GROUPING O Normal [facility] Comment on above: Performed By: #### L [id number] ####De Icer: MARY SOTELO ([id number])[facility] ([facility])[address] [place] [address] RH TYPE IN BLOOD Positive Normal [facility] [facility] Comment on above: Performed By: #### L [id number] ####De Icer: MARY SOTELO ([id number])[facility] ([facility])[address] [place] [address] CBC WITH AUTO DIFFERENTIALon 08-12-2024 Basophils (Bld) [#/Vol] 0.0 10*3/uL Normal 0.0-0.2 [facility] Comment on above: Performed By: #### L [id number], [id number] ####De Icer: MARY SOTELO ([id number])[facility] ([facility])[address] [place] [address] Basophils/100 WBC (Bld) 0.8 % Normal 0.0-2.0 [facility] Comment on above: Performed By: #### L [id number], [id number] ####De Icer: MARY SOTELO ([id number])[facility])[address] [place] [address] Eosinophils (Bld) [#/Vol] 0.1 10*3/uL Normal 0.0-0.5 [facility] Comment on above: Performed By: #### L [id number], [id number] ####De Icer: MARY SOTELO ([phone])[facility])[address] [place] [address] Eosinophils/100 WBC (Bld) 2.9 % Normal 0.0-6.0 [facility] Comment on above: Performed By: #### L [id number], [id number] ####De Icer: MARY SOTELO ([id number])[facility])[address] [place] [address] Erythrocyte distribution width (RBC) [Ratio] 16.4 % High 11.5-15.0 [facility] Comment on above: Performed By: #### L [id number], [id number] ####De Icer: MARY SOTELO ([id number])[facility])[address] [place] [address] Hematocrit (Bld) [Volume fraction] 22.3 % Low 35.0-47.0 [facility] Comment on above: Performed By: #### L [id number], [id number] ####De Icer: MARY SOTELO ([id number])[facility])[address] [place] [address] Hemoglobin (Bld) [Mass/Vol] 6.9 g/dL Critically low 11.7-16.0 [facility] Comment on above: Performed By: #### Dora AB296, [id number] ####De Icer: MARY SOTELO ([id number])[facility] ([facility])[address] [place] [address] IMMATURE GRANS % 0.5 % Normal 0.0-2.0 [facility] Comment on above: Performed By: #### Dora [id number], [id number] ####De Icer: MARY SOTELO ([id number])[facility])[address] [place] [address] IMMATURE GRANS ABSOLUTE 0.0 10*3/uL Normal <0.1 [facility] Comment on above: Performed By: #### Dora [id number], [id number] ####De Icer: MARY SOTELO ([id number])[facility])[address] [place] [address] [place] IPF 4 Normal [facility] Comment on above: Performed By: #### Dora [id number], [id number] ####De Icer: MARY SOTELO ([id number])[facility])[address] [place] [address] Lymphocytes (Bld) [#/Vol] 0.6 10*3/uL Low 1.0-4.3 [facility] Comment on above: Performed By: #### Dora [id number], [id number] ####De Icer: MARY SOTELO ([id number])[facility])[address] [place] [address] [place] Lymphocytes/100 WBC (Bld) 14.8 % Low 15.0-45.0 [facility] Comment on above: Performed By: #### Dora [id number], [id number] ####De Icer: MARY SOTELO ([id number])[facility])[address] [place] [address] MCH (RBC) [Entitic mass] 28.9 pg Normal 26.0-34.0 [facility] Comment on above: Performed By: #### Dora [id number], [id number] ####De Icer: MARY SOTELO ([id number])[facility])[address] [place] [address] MCHC 30.9 % Normal 30.5-36.0 [facility] Comment on above: Performed By: #### Dora AB296, [id number] ####De Icer: MARY SOTELO ([id number])[facility])[address] [place] [address] MCV (RBC) [Entitic vol] 93.3 fL Normal 77.0-99.0 [facility] Comment on above: Performed By: #### Dora AB296, [id number] ####De Icer: MARY SOTELO ([id number])[facility])[address] [place] [address] Monocytes (Bld) [#/Vol] 0.2 10*3/uL Normal 0.0-0.9 [facility] Comment on above: Performed By: #### Dora [id number], [id number] ####De Icer: MARY SOTELO ([id number])[facility])[address] [place] [address] Monocytes/100 WBC (Bld) 5.0 % Normal 5.0-13.0 [facility] Comment on above: Performed By: #### Dora [id number], [id number] ####De Icer: MARY SOTELO ([id number])[facility])[address] [place] [address] NEUTROPHILS ABSOLUTE 2.9 10*3/uL Normal 1.8-7.5 [facility] Comment on above: Performed By: #### L [id number], [id number] ####De Icer: MARY [id number])[facility])[address] [place] [address] Neutrophils/100 WBC (Bld) 76.0 % Normal 38.0-82.0 [facility] Comment on above: Performed By: #### L [id number], [id number] ####De Icer: MARY SOTELO ([id number])[facility] ([facility])[address] [place] [address] NRBC 0.0 /100 WBCs Normal 0.0-2.0 [facility] Comment on above: Performed By: #### L [id number], [id number] ####De Icer: MARY SOTELO ([id number])[facility] ([facility])[address] [place] [address] Platelet mean volume (Bld) [Entitic vol] 10.6 fL Normal 9.0-12.7 [facility] Comment on above: Performed By: #### Dora [id number], [id number] ####De Icer: MARY SOTELO ([id number])[facility] ([facility])[address] [place] [address] Platelets (Bld) [#/Vol] 85 10*3/uL Low 140-440 [facility] Comment on above: Performed By: #### L [id number], [id number] ####De Icer: MARY SOTELO ([id number])[facility] ([facility])[address] [place] [address] RBC (Bld) [#/Vol] 2.39 10*6/uL Low 3.80-5.20 [facility] Comment on above: Performed By: #### L [id number], [id number] ####De Icer: MARY SOTELO ([id number])[facility] ([facility])[address] [place] [address] [place] WBC (Bld) [#/Vol] 3.8 10*3/uL Normal 3.6-10.7 [facility] Comment on above: Performed By: #### L [id number], [id number] ####De Icer: MARY SOTELO ([id number])[facility])[address] [place] [address] Basophils (Bld) [#/Vol] 0.0 10*3/uL Normal 0.0-0.2 [facility] Comment on above: Performed By: #### L [id number] ####De Icer: MARY SOTELO ([id number])[facility])[address] [place] [address] Basophils/100 WBC (Bld) 0.8 % Normal 0.0-2.0 [facility] Comment on above: Performed By: #### L [id number] ####De Icer: MARY SOTELO ([id number])[facility])[address] [place] [address] Eosinophils (Bld) [#/Vol] 0.1 10*3/uL Normal 0.0-0.5 [facility] Comment on above: Performed By: #### L [id number] ####De Icer: MARY SOTELO ([id number])[facility])[address] [place] [address] Eosinophils/100 WBC (Bld) 2.5 % Normal 0.0-6.0 [facility] Comment on above: Performed By: #### L [id number] ####De Icer: MARY SOTELO ([id number])[facility])[address] [place] [address] Erythrocyte distribution width (RBC) [Ratio] 16.5 % High 11.5-15.0 [facility] Comment on above: Performed By: #### L [id number] ####De Icer: MARY SOTELO ([id number])[facility])[address] [place] [address] Hematocrit (Bld) [Volume fraction] 26.5 % Low 35.0-47.0 [facility] Comment on above: Performed By: #### L [id number] ####De Icer: MARY SOTELO ([id number])[facility])[address] [place] [address] [place] Hemoglobin (Bld) [Mass/Vol] 7.9 g/dL Low 11.7-16.0 [facility] Comment on above: Performed By: #### L [id number] ####De Icer: MARY SOTELO ([id number])[facility])[address] [place] [address] IMMATURE GRANS % 0.6 % Normal 0.0-2.0 [facility] Comment on above: Performed By: #### L [id number] ####De Icer: MARY SOTELO ([id number])[facility])[address] [place] [address] IMMATURE GRANS ABSOLUTE 0.0 10*3/uL Normal <0.1 [facility] Comment on above: Performed By: #### L [id number] ####De Icer: MARY SOTELO ([id number])[facility])[address] [place] [address] IPF 5 Normal [facility] Comment on above: Performed By: #### L [id number] ####De Icer: MARY SOTELO ([id number])[facility])[address] [place] [address] Lymphocytes (Bld) [#/Vol] 1.3 10*3/uL Normal 1.0-4.3 [facility] Comment on above: Performed By: #### L [id number] ####De Icer: MARY SOTELO ([id number])[facility])[address] [place] [address] Lymphocytes/100 WBC (Bld) 27.1 % Normal 15.0-45.0 [facility] Comment on above: Performed By: #### L [id number] ####De Icer: MARY SOTELO ([id number])[facility])[address] [place] [address] MCH (RBC) [Entitic mass] 28.4 pg Normal 26.0-34.0 [facility] Comment on above: Performed By: #### L [id number] ####De Icer: MARY SOTELO ([id number])[facility] ([facility])[address] [place] [address] MCHC 29.8 % Low 30.5-36.0 [facility] Comment on above: Performed By: #### L [id number] ####De Icer: MARY SOTELO ([id number])[facility] ([facility])[address] [place] [address] MCV (RBC) [Entitic vol] 95.3 fL Normal 77.0-99.0 [facility] Comment on above: Performed By: #### L [id number] ####De Icer: MARY SOTELO ([id number])[facility] ([facility])[address] [place] [address] Monocytes (Bld) [#/Vol] 0.6 10*3/uL Normal 0.0-0.9 [facility] Comment on above: Performed By: #### L [id number] ####De Icer: MARY SOTELO ([id number])[facility] ([facility])[address] [place] [address] Monocytes/100 WBC (Bld) 13.4 % High 5.0-13.0 [facility] Comment on above: Performed By: #### L [id number] ####De Icer: MARY SOTELO ([id number])[facility] ([facility])[address] [place] [address] NEUTROPHILS ABSOLUTE 2.7 10*3/uL Normal 1.8-7.5 [facility] Comment on above: Performed By: #### L [id number] ####De Icer: MARY SOTELO ([id number])[facility] ([facility])[address] [place] [address] Neutrophils/100 WBC (Bld) 55.6 % Normal 38.0-82.0 [facility] Comment on above: Performed By: #### L [id number] ####De Icer: MARY SOTELO ([id number])[facility] ([facility])[address] [place] [address] NRBC 0.0 /100 WBCs Normal 0.0-2.0 [facility] Comment on above: Performed By: #### L [id number] ####De Icer: MARY SOTELO ([id number])[facility])[address] [place] [address] Platelet mean volume (Bld) [Entitic vol] 11.3 fL Normal 9.0-12.7 [facility] Comment on above: Performed By: #### L [id number] ####De Icer: MARY SOTELO ([id number])[facility] ([facility])[address] [place] [address] Platelets (Bld) [#/Vol] 89 10*3/uL Low 140-440 [facility] Comment on above: Performed By: #### L [id number] ####De Icer: MARY SOTELO ([id number])[facility] ([facility])[address] [place] [address] RBC (Bld) [#/Vol] 2.78 10*6/uL Low 3.80-5.20 [facility] Comment on above: Performed By: #### L [id number] ####De Icer: MARY SOTELO ([id number])[facility] ([facility])[address] [place] [address] WBC (Bld) [#/Vol] 4.8 10*3/uL Normal 3.6-10.7 [facility] Comment on above: Performed By: #### L [id number] ####De Icer: MARY SOTELO ([id number])[facility] ([facility])[address] [place] [address] COMPREHENSIVE METABOLIC PANE [place] 08-12-2024 Albumin [Mass/Vol] 2.9 g/dL Low 3.5-5.0 [facility] Comment on above: Performed By: #### L [id number] ####De Icer: MARY SOTELO ([id number])[facility])[address] [place] [address] ALP [Catalytic activity/Vol] 52 U/L Normal 38-126 [facility] Comment on above: Performed By: #### L AB17 ####De Icer: MARY SOTELO ([id number])[facility])[address] [place] [address] ALT [Catalytic activity/Vol] 13 U/L Normal 0-34 [facility] Comment on above: Performed By: #### L AB17 ####De Icer: MARY SOTELO ([id number])[facility] ([facility])[address] [place] [address] Anion gap [Moles/Vol] 7 mmol/L Normal 3-13 [facility] Comment on above: Performed By: #### L AB17 ####De Icer: MARY SOTELO ([id number])[facility])[address] [place] [address] AST [Catalytic activity/Vol] 18 U/L Normal 15-46 [facility] Comment on above: Performed By: #### L AB17 ####De Icer: MARY SOTELO ([id number])[facility] ([facility])[address] [place] [address] Bilirubin [Mass/Vol] 0.9 mg/dL Normal 0.2-1.3 [facility] Comment on above: Performed By: #### L AB17 ####De Icer: MARY SOTELO ([id number])[facility])[address] [place] [address] Calcium [Mass/Vol] 6.9 mg/dL Low 8.4-10.4 [facility] Comment on above: Performed By: #### L AB17 ####De Icer: MARY SOTELO ([id number])[facility] ([facility])[address] [place] [address] Chloride [Moles/Vol] 100 mmol/L Normal 98-107 [facility] Comment on above: Performed By: #### L AB17 ####De Icer: MARY SOTELO ([id number])[facility])[address] [place] [address] CO2 [Moles/Vol] 22 mmol/L Normal 22-30 [facility] Comment on above: Performed By: #### L AB17 ####De Icer: MARY SOTELO ([id number])[facility] ([facility])[address] [place] [address] Creatinine [Mass/Vol] 2.56 mg/dL High 0.52-1.04 [facility] Comment on above: Performed By: #### L AB17 ####De Icer: MARY SOTELO ([id number])[facility] ([facility])[address] [place] [address] GLOMERULAR FILTRATION RATE ML/MIN/1.73 SQ M.PREDICTED 20.4 mL/min/1.73m*2 Low >60.0 [facility] Comment on above: Result Comment: Calc ulation based on the Chronic Kidney Disease Epidemiology Collaboration (CKD-EPI) equation refit without adjustment for race Performed By: #### L AB17 ####De Icer: MARY SOTELO ([id number])[facility] [place] [address] [place] Glucose [Mass/Vol] 220 mg/dL High 70-100 [facility] Comment on above: Performed By: #### L AB17 ####De Icer: MARY SOTELO ([id number])[facility] ([facility])[address] [place] [address] [place] Potassium [Moles/Vol] 4.2 mmol/L Normal 3.5-5.1 [facility] Comment on above: Performed By: #### L AB17 ####De Icer: MARY SOTELO ([id number])[facility] ([facility])[address] [place] [address] [place] Protein [Mass/Vol] 5.2 g/dL Low 6.3-8.2 [facility] Comment on above: Performed By: #### L AB17 ####De Icer: MARY SOTELO ([id number])[facility] ([facility])[address] [place] [address] [place] Sodium [Moles/Vol] 130 mmol/L Low 135-145 [facility] Comment on above: Performed By: #### L AB17 ####De Icer: MARY SANDRAAnia ([id number])[facility] ([facility])[address] [place] [address] Urea nitrogen [Mass/Vol] 20 mg/dL High 7-17 [facility] Comment on above: Performed By: #### L AB17 ####De Icer: MARY SANDRAAnia ([id number])[facility] [place] [address] CT HEAD NECK ANGIO W AND WO IV CONTRASTon 08-12-2024 CT HEAD NECK ANGIO W AND WO IV CONTRAST Normal [facility] CT HEAD WO IV CONTRASTon CT HEAD WO IV CONTRAST Normal [facility] CT HEAD WO IV CONTRAST Normal [facility] CT Head WO contraston [address] [...] MD Electronically Signed Date/Time: 08/12/2024 8:18 AM [facility]MENT [place] [facility] 1960 [id number] Exam Date/Time: 08/11/2024 15:35 Procedure: CT HEAD [...] orbits and extracranial soft tissues are unremarkable. [facility] Reece Mckinley MD - 08/12/2024 Patient Name: SANDY DENG : 1960 Exam Date/Time: 08/11/2024 15:35 Procedure: CT HEAD [...] Electronically Signed Date/Time: 08/12/2024 8:18 AM EDT [facility] CT Head WO contrastOrdered B y: Reece Mckinley on 08-12-2024 [facility] Work Phone: CT PERFUSIONon 08-12-2024 CT PERFUSION Normal [facility] Consulton 08-12-2024 Consult Normal [facility] ECG 12-LEADon 08-12-2024 ECG 12-LEAD IMPRESSION: Sinus rhythm Consider left ventricular hypertrophy Electronically Signed On 08-12-2024 18:40:59 EDT by Fabrizio Guillory Normal [facility] ED Nursing Noteon 08-12-2024 ED Nursing Note Report given to T3 Juanis Doan RN 08/12/24 1634 Normal [facility] ED Nursing Note ICU at bedside. Clari Bronson RN 08/12/24 1517 Normal [facility] ED Provider Noteon ED Provider Note Normal [facility] FERRITINon 08-12-2024 Ferritin [Mass/Vol] 231 ng/mL Normal 11-264 [facility] Comment on above: Performed By: #### L AB69, LAB68, [id number], LAB67 ####De Icer: MARY SOTELO ([phone])[facility] ([facility])[address] [place] [address] FOLATEon 08-12-2024 FOLATE RESULT 10.8 ng/mL Normal >=2.9 [facility] Comment on above: Performed By: #### L AB69, LAB68, [id number], LAB67 ####De Icer: MARY SOTELO ([id number])[facility] ([facility])[address] [place] [address] IDNon 08-12-2024 IDN Normal [facility] IRON AND TIBCon 08-12-2024 IRON BINDING CAPACITY 158 ug/dL Low 261-497 [facility] Comment on above: Performed By: #### L [id number] ####De Icer: MARY SOTELO ([id number])[facility] ([facility])[address] [place] [address] IRON SATURATION 45 % Normal 15-50 [facility] Comment on above: Performed By: #### L [id number] ####De Icer: MARY SOTELO ([id number])[facility])[address] [place] [address] IRON, TOTAL 71 ug/dL Normal 37-170 [facility] Comment on above: Performed By: #### L [id number] ####De Icer: MARY SOTELO ([id number])[facility])[address] [place] [address] LACTIC ACID WITH REFLEXon Lactate [Moles/Vol] 1.6 mmol/L Normal 0.7-2.0 [facility] Comment on above: Performed By: #### L [id number] ####De Icer: MARY SOTELO ([id number])[address] NT PRO BNPon 08-12-2024 NT PRO BNP >92378 High <125 [facility] Comment on above: Performed By: #### L [id number], LAB15, [id number] ####De Icer: MARY SOTELO ([id number])[address] Nursing Noteon 08-12-2024 Nursing Note Normal [facility] RETICULOCYTESon 08-12-2024 Reticulocytes/100 RBC (Bld) 2.41 % Normal [facility] Comment on above: Result Comment: Newb orn < 5%Adults 0.4 - 2.0% Performed By: #### L AB296, [id number] ####De Icer: MARY SOTELO ([id number])[facility])[address] [place] [address] TROPONIN Ion 08-12-2024 Troponin I.cardiac [Mass/Vol] 0.052 ng/mL High <0.034 [facility] Comment on above: Result Comment: BINA R COMMENTS:Patients with high levels of Biotin oral intake (ie >5 mg/day) may have falsely decreased Troponin levels. Performed By: #### L AB69, LAB68, [id number], LAB67 ####De Icer: MARY SOTELO ([id number])[facility])[address] [place] [address] Troponin I.cardiac [Mass/Vol] 0.046 ng/mL High <0.034 [facility] Comment on above: Result Comment: BINA Olivarez COMMENTS:Patients with high levels of Biotin oral intake (ie >5 mg/day) may have falsely decreased Troponin levels. Performed By: #### L [id number] ####De Icer: MARY SOTELO ([id number])[facility] ([facility])[address] [place] [address] TROPONIN, WITH SERIAL REFLEX on 08-12-2024 Troponin I.cardiac [Mass/Vol] 0.046 ng/mL High <0.034 [facility] Comment on above: Result Comment: BINA Olivarez COMMENTS:Patients with high levels of Biotin oral intake (ie >5 mg/day) may have falsely decreased Troponin levels. Performed By: #### L [id number], LAB15, [id number] ####De Icer: MARY SOTELO ([id number])[facility] ([facility])[address] [place] [address] VITAMIN B12on 08-12-2024 Cobalamin (Vitamin B12) [Mass/Vol] 932 pg/mL High 239-931 [facility] Comment on above: Performed By: #### L AB69, LAB68, YIT399, LAB67 ####De Icer: MARY SOTELO ([id number])[facility] ([facility])[address] [place] [address] CARECOORDon 08-11-2024 [facility] Patient Choice Patient Name: SANDY DENG Date of : 1960 Normal [facility] [address] Head WO contraston 2023 Radiology Study observation (narrative) [facility] Progress Noteon 08-11-2024 Progress Note Normal [facility] BASIC METABOLIC PANELon Anion gap [Moles/Vol] 2 mmol/L Low 3-13 [facility] Comment on above: Performed By: #### L AB113, [id number], LAB15 ####De Icer: MARY SOTELO ([id number])[facility] ([facility])[address] [place] [address] Calcium [Mass/Vol] 6.6 mg/dL Low 8.4-10.4 [facility] Comment on above: Performed By: #### Dora AB113, [id number], LAB15 ####De Icer: MARY SOTELO ([phone])[facility] [place] [address] Chloride [Moles/Vol] 102 mmol/L Normal 98-107 [facility] Comment on above: Performed By: #### Dora AB113, [id number], LAB15 ####De Icer: MARY SOTELO ([id number])[facility] [place] [address] CO2 [Moles/Vol] 33 mmol/L High 22-30 [facility] Comment on above: Performed By: #### Dora ABGabbie, [id number], LAB15 ####De Icer: MARY SOTELO ([phone])[facility] ([facility])[address] [place] [address] Creatinine [Mass/Vol] 2.85 mg/dL High 0.52-1.04 [facility] Comment on above: Performed By: #### Dora AB113, [id number], LAB15 ####De Icer: MARY SOTELO ([id number])[facility] ([facility])[address] [place] [address] [place] GLOMERULAR FILTRATION RATE ML/MIN/1.73 SQ M.PREDICTED 17.9 mL/min/1.73m*2 Low >60.0 [facility] Comment on above: Result Comment: Calc ulation based on the Chronic Kidney Disease Epidemiology Collaboration (CKD-EPI) equation refit without adjustment for race Performed By: #### L AB113, [id number], LAB15 ####De Icer: MARY SOTELO ([id number])[facility] [place] [address] Glucose [Mass/Vol] 110 mg/dL High 70-100 [facility] Comment on above: Performed By: #### L AB113, [id number], LAB15 ####De Icer: MARY SOTELO ([id number])[facility] ([facility])[address] [place] [address] Potassium [Moles/Vol] 4.2 mmol/L Normal 3.5-5.1 [facility] Comment on above: Performed By: #### L AB113, [id number], LAB15 ####De Icer: MARY SOTELO ([id number])[facility] ([facility])[address] [place] [address] Sodium [Moles/Vol] 138 mmol/L Normal 135-145 [facility] Comment on above: Performed By: #### L AB113, [id number], LAB15 ####De Icer: MARY SOTELO ([id number])[facility] [place] [address] Urea nitrogen [Mass/Vol] 25 mg/dL High 7-17 [facility] Comment on above: Performed By: #### L [id number], [id number], [id number] ####De Icer: MARY SOTELO ([phone])[facility] ([facility])[address] [place] [address] Basic metabolic 1998 panelon 08-10-2024 Anion gap [Moles/Vol] 2 mmol/L Low 3 - 13 mmol/L [facility] Calcium [Mass/Vol] 6.6 mg/dL Low 8.4 - 10. 4 mg/dL [facility] Chloride [Moles/Vol] 102 mmol/L 98 - 10 7 mmol/L [facility] CO2 [Moles/Vol] 33 mmol/L High 22 - 30 mmol/L [facility] Creatinine [Mass/Vol] 2.85 mg/dL High 0.52 - 1.04 mg/dL [facility] GFR/1.73 sq M.predicted (S/P/Bld) [Vol rate/Area] 17.9 mL/min Low - PINF [facility] Glucose [Mass/Vol] 110 mg/dL High 70 - 100 mg/dL [facility] Interpretation and review of laboratory results Abnormal [facility] Potassium [Moles/Vol] 4.2 mmol/L 3.5 - 5.1 mmol/L [facility] Sodium [Moles/Vol] 138 mmol/L 135 - 145 mmol/L [facility] Urea nitrogen [Mass/Vol] 25 mg/dL High 7 - 17 mg/dL [facility] C3, BLOODon 08-10-2024 C3, BLOOD 64 mg/dL Low 88-165 [facility] Comment on above: Performed By: #### L [id number], [id number] ####De Icer: MARLENY GUZMÁN ([id number])[facility] ([facility])[address] [place] [address] C4 COMPLEMENTon 08-10-2024 C4, BLOOD 13 mg/dL Low 14-44 [facility] Comment on above: Performed By: #### L [id number], [id number] ####De Icer: MARLENY GUZMÁN ([id number])[facility] ([facility])[address] [place] [address] CARECOORDon 08-10-2024 [place]ORD Normal [facility] Normal [facility] Transportation set v ia cot through [facility] for today 08-10-24 @2pm to [facility]. TCC, RN, Director Of Regulatory Affairs, facility, Pt, and Pt's Jose notified. Normal [facility] [place]OORD [facility] per T[facility] request. Normal [facility]ORD [facility] mar today . Med team notified of auth and need discharge orders . Done. SW to arrange transport today . [facility] CBC W Auto Differential pane l (Bld)on 08-10-2024 Basophils (Bld) [#/Vol] 0.0 10*3/uL 0.0 - 0.2 10*3/uL [facility] Basophils/100 WBC (Bld) 0.2 % 0.0 - 2.0 % [facility] Eosinophils (Bld) [#/Vol] 0.3 10*3/uL 0.0 - 0.5 10*3/uL [facility] Eosinophils/100 WBC (Bld) 5.2 % 0.0 - 6.0 % [facility] Erythrocyte distribution width (RBC) [Ratio] 17.2 % High 11.5 - 15.0 % [facility] Hematocrit (Bld) [Volume fraction] 26.2 % Low 35.0 - 47.0 % [facility] Hemoglobin (Bld) [Mass/Vol] 7.8 g/dL Low 11.7 - 16.0 g/dL [facility] Immature granulocytes (Bld) [#/Vol] 0.1 10*3/uL High NINF - 0.1 10*3/uL [facility] Immature granulocytes/100 WBC (Bld) 0.8 % 0.0 - 2.0 % [facility] Interpretation and review of laboratory results Abnormal [facility] IPF 4 [facility] Lymphocytes (Bld) [#/Vol] 1.0 10*3/uL 1.0 - 4.3 10*3/uL [facility] Lymphocytes/100 WBC (Bld) 16.2 % 15.0 - 45.0 % [facility] MCH (RBC) [Entitic mass] 28.5 pg 26.0 - 34.0 pg [facility] MCHC (RBC) [Mass/Vol] 29.8 % Low 30.5 - 36.0 % [facility] MCV (RBC) [Entitic vol] 95.6 fL 77.0 - 99.0 fL [facility] Monocytes (Bld) [#/Vol] 0.4 10*3/uL 0.0 - 0.9 10*3/uL [facility] Monocytes/100 WBC (Bld) 6.2 % 5.0 - 13.0 % [facility] Neutrophils (Bld) [#/Vol] 4.3 10*3/uL 1.8 - 7.5 10*3/uL [facility] Neutrophils/100 WBC (Bld) 71.4 % 38.0 - 82.0 % [facility] Nucleated RBC/100 WBC (Bld) [Ratio] 0.0 % [facility] Platelet mean volume (Bld) [Entitic vol] 10.7 fL 9.0 - 12.7 fL [facility] Platelets (Bld) [#/Vol] 95 10*3/uL Low 140 - 440 10*3/uL [facility] RBC (Bld) [#/Vol] 2.74 10*6/uL Low 3.80 - 5.2 0 10*6/uL [facility] WBC (Bld) [#/Vol] 6.0 10*3/uL 3.6 - 10.7 10*3/uL [facility] CBC WITH AUTO DIFFERENTIALon 08-10-2024 Basophils (Bld) [#/Vol] 0.0 10*3/uL Normal 0.0-0.2 [facility] Comment on above: Performed By: #### L [id number] ####De Icer: MARY SOTELO ([id number])[facility])[address] [place] [address] Basophils/100 WBC (Bld) 0.2 % Normal 0.0-2.0 [facility] Comment on above: Performed By: #### L [id number] ####De Icer: MARY SOTELO ([id number])[facility])[address] [place] [address] [place] Eosinophils (Bld) [#/Vol] 0.3 10*3/uL Normal 0.0-0.5 [facility] Comment on above: Performed By: #### L [id number] ####De Icer: MARY SOTELO ([id number])[facility])[address] [place] [address] [place] Eosinophils/100 WBC (Bld) 5.2 % Normal 0.0-6.0 [facility] Comment on above: Performed By: #### L [id number] ####De Icer: MARY SOTELO ([id number])[facility])[address] [place] [address] Erythrocyte distribution width (RBC) [Ratio] 17.2 % High 11.5-15.0 [facility] Comment on above: Performed By: #### L [id number] ####De Icer: MARY SOTELO ([phone])[facility])[address] [place] [address] Hematocrit (Bld) [Volume fraction] 26.2 % Low 35.0-47.0 [facility] Comment on above: Performed By: #### L [id number] ####De Icer: MARY SOTELO ([id number])[facility])[address] [place] [address] Hemoglobin (Bld) [Mass/Vol] 7.8 g/dL Low 11.7-16.0 [facility] Comment on above: Performed By: #### L [id number] ####De Icer: MARY SOTELO ([id number])[facility])[address] [place] [address] IMMATURE GRANS % 0.8 % Normal 0.0-2.0 [facility] Comment on above: Performed By: #### L [id number] ####De Icer: MARY SOTELO ([id number])[address] IMMATURE GRANS ABSOLUTE 0.1 10*3/uL High <0.1 [facility] Comment on above: Performed By: #### L [id number] ####De Icer: MARY SOTELO ([id number])[address] IPF 4 Normal [facility] Comment on above: Performed By: #### L [id number] ####De Icer: MARY SOTELO ([id number])[facility])[address] [place] [address] Lymphocytes (Bld) [#/Vol] 1.0 10*3/uL Normal 1.0-4.3 [facility] Comment on above: Performed By: #### L [id number] ####De Icer: MARY SOTELO ([id number])[facility])[address] [place] [address] Lymphocytes/100 WBC (Bld) 16.2 % Normal 15.0-45.0 [facility] Comment on above: Performed By: #### L [id number] ####De Icer: MARY SOTELO ([id number])[facility])[address] [place] [address] MCH (RBC) [Entitic mass] 28.5 pg Normal 26.0-34.0 [facility] Comment on above: Performed By: #### L [id number] ####De Icer: MARY SOTELO ([id number])[facility])[address] [place] [address] MCHC 29.8 % Low 30.5-36.0 [facility] Comment on above: Performed By: #### L [id number] ####De Icer: MARY SOTELO ([id number])[facility])[address] [place] [address] MCV (RBC) [Entitic vol] 95.6 fL Normal 77.0-99.0 [facility] Comment on above: Performed By: #### L [id number] ####De Icer: MARY SOTELO ([id number])[facility])[address] [place] [address] Monocytes (Bld) [#/Vol] 0.4 10*3/uL Normal 0.0-0.9 [facility] Comment on above: Performed By: #### L [id number] ####De Icer: MARY SOTELO ([id number])[facility])[address] [place] [address] Monocytes/100 WBC (Bld) 6.2 % Normal 5.0-13.0 [facility] Comment on above: Performed By: #### L [id number] ####De Icer: MARY SOTELO ([id number])[facility])[address] [place] [address] NEUTROPHILS ABSOLUTE 4.3 10*3/uL Normal 1.8-7.5 [facility] Comment on above: Performed By: #### L [id number] ####De Icer: MARY SOTELO ([id number])[facility] ([facility])[address] [place] [address] Neutrophils/100 WBC (Bld) 71.4 % Normal 38.0-82.0 [facility] Comment on above: Performed By: #### L [id number] ####De Icer: MARY SOTELO ([id number])[facility] ([facility])[address] [place] [address] NRBC 0.0 /100 WBCs Normal 0.0-2.0 [facility] Comment on above: Performed By: #### L [id number] ####De Icer: MARY SOTELO ([id number])[facility] ([facility])[address] [place] [address] Platelet mean volume (Bld) [Entitic vol] 10.7 fL Normal 9.0-12.7 [facility] Comment on above: Performed By: #### L [id number] ####De Icer: MARY SOTELO ([id number])[facility] ([facility])[address] [place] [address] Platelets (Bld) [#/Vol] 95 10*3/uL Low 140-440 [facility] Comment on above: Performed By: #### L [id number] ####De Icer: MARY SOTELO ([id number])[facility] ([facility])[address] [place] [address] [place] RBC (Bld) [#/Vol] 2.74 10*6/uL Low 3.80-5.20 [facility] Comment on above: Performed By: #### L [id number] ####De Icer: MARY SOTELO ([id number])[facility] ([facility])[address] [place] [address] [place] WBC (Bld) [#/Vol] 6.0 10*3/uL Normal 3.6-10.7 [facility] Comment on above: Performed By: #### L [id number] ####De Icer: MARY SOTELO ([id number])[facility] ([facility])[address] [place] [address] [place] GLUCOSE, RANDOMon 08-10-2024 Glucose [Mass/Vol] 61 mg/dL Low 70-100 [facility] Comment on above: Performed By: #### L [id number] ####De Icer: MARY SOTELO ([id number])[facility] ([facility])[address] [place] [address] [place] Glucose (Bld) [Mass/Vol]on 1 Glucose [Mass/Vol] 61 mg/dL Low 70 - 100 mg/dL [facility] Interpretation and review of laboratory results Abnormal [facility] IDNon 08-10-2024 IDN Normal [facility] Laboratory - Chemistry and C hemistry - challengeon 08-10-2024 Glucose [Mass/Vol] 119 mg/dL High 70 - 100 mg/dL [facility] Glucose [Mass/Vol] 109 mg/dL High 70 - 100 mg/dL [facility] Glucose [Mass/Vol] 102 mg/dL High 70 - 100 mg/dL [facility] Glucose [Mass/Vol] 96 mg/dL 70 - 100 mg/dL [facility] Glucose [Mass/Vol] 103 mg/dL High 70 - 100 mg/dL [facility] Glucose [Mass/Vol] 65 mg/dL Low 70 - 100 mg/dL [facility] Magnesium [Mass/Vol] 1.8 mg/dL 1.6 - 2 .3 mg/dL [facility] - Hematology and Cell countson 08-10-2024 Complement C3 [Mass/Vol] 64 mg/dL Low 88 - 165 mg/dL [facility] Complement C4 [Mass/Vol] 13 mg/dL Low 14 - 44 mg/dL [facility] MAGNESIUMon 08-10-2024 Magnesium [Mass/Vol] 1.8 mg/dL Normal 1.6-2.3 [facility] Comment on above: Performed By: #### L [id number], [id number], LAB15 ####De Icer: MARY SOTELO ([id number])[facility])[address] [place] [address] No Panel Informationon 08-10 Interpretation and review of laboratory results Abnormal [facility] Interpretation and review of laboratory results Abnormal [facility] Interpretation and review of laboratory results Abnormal [facility] Interpretation and review of laboratory results Abnormal [facility] Interpretation and review of laboratory results Abnormal [facility] Interpretation and review of laboratory results Normal [facility] Interpretation and review of laboratory results Abnormal [facility] Interpretation and review of laboratory results Abnormal [facility] Interpretation and review of laboratory results Normal [facility] Nursing Noteon 08-10-2024 Nursing Note [facility] This RN verified with Dr. Espana that pt is leaving with johnson catheter. Normal [facility] Nursing Note Normal [facility] PHOSPHORUSon 08-10-2024 Phosphate [Mass/Vol] 4.5 mg/dL Normal 2.5-4.5 [facility] Comment on above: Performed By: #### L [id number], [id number], LAB15 ####De Icer: MARY SOTELO ([id number])[facility] ([facility])[address] [place] [address] [place] Phosphate [Moles/Vol]on Phosphate [Mass/Vol] 4.5 mg/dL 2.5 - 4 .5 mg/dL [facility] Progress Noteon 08-10-2024 Progress Note Normal [facility] Progress Note Normal [facility] BASIC METABOLIC PANELon Anion gap [Moles/Vol] 1 mmol/L Low 3-13 [facility] Comment on above: Performed By: #### L AB113, [id number], LAB15 ####De Icer: MARY SOTELO ([id number])[facility] ([facility])[address] [place] [address] Calcium [Mass/Vol] 6.9 mg/dL Low 8.4-10.4 [facility] Comment on above: Performed By: #### L AB113, [id number], LAB15 ####De Icer: MARY SOTELO ([id number])[facility] ([facility])[address] [place] [address] Chloride [Moles/Vol] 105 mmol/L Normal 98-107 [facility] Comment on above: Performed By: #### L AB113, [id number], LAB15 ####De Icer: MARY SOTELO ([id number])[facility] [place] [address] CO2 [Moles/Vol] 30 mmol/L Normal 22-30 [facility] Comment on above: Performed By: #### Dora AB113, [id number], LAB15 ####De Icer: MARY SOTELO ([id number])[facility] ([facility])[address] [place] [address] Creatinine [Mass/Vol] 2.30 mg/dL High 0.52-1.04 [facility] Comment on above: Performed By: #### Dora AB113, [id number], LAB15 ####De Icer: MARY SOTELO ([id number])[facility] ([facility])[address] [place] [address] [place] GLOMERULAR FILTRATION RATE ML/MIN/1.73 SQ M.PREDICTED 23.2 mL/min/1.73m*2 Low >60.0 [facility] Comment on above: Result Comment: Calc ulation based on the Chronic Kidney Disease Epidemiology Collaboration (CKD-EPI) equation refit without adjustment for race Performed By: #### L AB113, [id number], LAB15 ####De Icer: MARY SOTELO ([id number])[facility] ([facility])[address] [place] [address] Glucose [Mass/Vol] 69 mg/dL Low 70-100 [facility] Comment on above: Performed By: #### L AB113, [id number], LAB15 ####De Icer: MARY [id number])[facility] [place] [address] Potassium [Moles/Vol] 4.3 mmol/L Normal 3.5-5.1 [facility] Comment on above: Performed By: #### L AB113, [id number], LAB15 ####De Icer: MARY SOTELO ([phone])[facility])[address] [place] [address] Sodium [Moles/Vol] 136 mmol/L Normal 135-145 [facility] Comment on above: Performed By: #### L AB113, [id number], LAB15 ####De Icer: MARY SOTELO ([phone])[facility])[address] [place] [address] Urea nitrogen [Mass/Vol] 22 mg/dL High 7-17 [facility] Comment on above: Performed By: #### L AB113, [id number], LAB15 ####De Icer: MARY SOTELO ([id number])[facility] ([facility])[address] [place] [address] Basic metabolic 1998 panelon 08-09-2024 Anion gap [Moles/Vol] 1 mmol/L Low 3 - 13 mmol/L [facility] Calcium [Mass/Vol] 6.9 mg/dL Low 8.4 - 10. 4 mg/dL [facility] Chloride [Moles/Vol] 105 mmol/L 98 - 10 7 mmol/L [facility] CO2 [Moles/Vol] 30 mmol/L 22 - 30 mmol/L [facility] Creatinine [Mass/Vol] 2.30 mg/dL High 0.52 - 1.04 mg/dL [facility] GFR/1.73 sq M.predicted (S/P/Bld) [Vol rate/Area] 23.2 mL/min Low - PINF [facility] Glucose [Mass/Vol] 69 mg/dL Low 70 - 100 mg/dL [facility] Interpretation and review of laboratory results Abnormal [facility] Potassium [Moles/Vol] 4.3 mmol/L 3.5 - 5.1 mmol/L [facility] Sodium [Moles/Vol] 136 mmol/L 135 - 145 mmol/L [facility] Urea nitrogen [Mass/Vol] 22 mg/dL High 7 - 17 mg/dL [facility] CARECOORDon 08-09-2024 CAR[place]OORD Normal [facility] Normal [facility] CBC W Auto Differential pane l (Bld)on 08-09-2024 Basophils (Bld) [#/Vol] 0.0 10*3/uL 0.0 - 0.2 10*3/uL [facility] Basophils/100 WBC (Bld) 0.4 % 0.0 - 2.0 % [facility] Eosinophils (Bld) [#/Vol] 0.3 10*3/uL 0.0 - 0.5 10*3/uL [facility] Eosinophils/100 WBC (Bld) 4.3 % 0.0 - 6.0 % [facility] Erythrocyte distribution width (RBC) [Ratio] 17.2 % High 11.5 - 15.0 % [facility] Hematocrit (Bld) [Volume fraction] 26.6 % Low 35.0 - 47.0 % [facility] Hemoglobin (Bld) [Mass/Vol] 8.1 g/dL Low 11.7 - 16.0 g/dL [facility] Immature granulocytes (Bld) [#/Vol] 0.1 10*3/uL High NINF - 0.1 10*3/uL [facility] Immature granulocytes/100 WBC (Bld) 0.8 % 0.0 - 2.0 % [facility] Interpretation and review of laboratory results Abnormal [facility] IPF 3 [facility] Lymphocytes (Bld) [#/Vol] 1.3 10*3/uL 1.0 - 4.3 10*3/uL [facility] Lymphocytes/100 WBC (Bld) 17.0 % 15.0 - 45.0 % [facility] MCH (RBC) [Entitic mass] 28.8 pg 26.0 - 34.0 pg [facility] MCHC (RBC) [Mass/Vol] 30.5 % 30.5 - 36.0 % [facility] MCV (RBC) [Entitic vol] 94.7 fL 77.0 - 99.0 fL [facility] Monocytes (Bld) [#/Vol] 0.5 10*3/uL 0.0 - 0.9 10*3/uL [facility] Monocytes/100 WBC (Bld) 6.1 % 5.0 - 13.0 % [facility] Neutrophils (Bld) [#/Vol] 5.5 10*3/uL 1.8 - 7.5 10*3/uL [facility] Neutrophils/100 WBC (Bld) 71.4 % 38.0 - 82.0 % [facility] Nucleated RBC/100 WBC (Bld) [Ratio] 0.0 % [facility] Platelet mean volume (Bld) [Entitic vol] 10.5 fL 9.0 - 12.7 fL [facility] Platelets (Bld) [#/Vol] 108 10*3/uL Low 140 - 440 10*3/uL [facility] RBC (Bld) [#/Vol] 2.81 10*6/uL Low 3.80 - 5.2 0 10*6/uL [facility] WBC (Bld) [#/Vol] 7.7 10*3/uL 3.6 - 10.7 10*3/uL [facility] CBC WITH AUTO DIFFERENTIALon 08-09-2024 Basophils (Bld) [#/Vol] 0.0 10*3/uL Normal 0.0-0.2 [facility] Comment on above: Performed By: #### L [id number] ####De Icer: MARY SOTELO ([id number])[address] Basophils/100 WBC (Bld) 0.4 % Normal 0.0-2.0 [facility] Comment on above: Performed By: #### L [id number] ####De Icer: MARY SOTELO ([id number])[facility])[address] [place] [address] Eosinophils (Bld) [#/Vol] 0.3 10*3/uL Normal 0.0-0.5 [facility] Comment on above: Performed By: #### L [id number] ####De Icer: MARY SOTELO ([id number])[facility])[address] [place] [address] Eosinophils/100 WBC (Bld) 4.3 % Normal 0.0-6.0 [facility] Comment on above: Performed By: #### L [id number] ####De Icer: MARY SOTELO ([id number])[address] Erythrocyte distribution width (RBC) [Ratio] 17.2 % High 11.5-15.0 [facility] Comment on above: Performed By: #### L [id number] ####De Icer: MARY SOTELO ([id number])[address] Hematocrit (Bld) [Volume fraction] 26.6 % Low 35.0-47.0 [facility] Comment on above: Performed By: #### L [id number] ####De Icer: MARY SOTELO ([id number])[address] Hemoglobin (Bld) [Mass/Vol] 8.1 g/dL Low 11.7-16.0 [facility] Comment on above: Performed By: #### L [id number] ####De Icer: MARY SOTELO ([id number])[address] IMMATURE GRANS % 0.8 % Normal 0.0-2.0 [facility] Comment on above: Performed By: #### L [id number] ####De Icer: MARY SOTELO ([id number])[address] IMMATURE GRANS ABSOLUTE 0.1 10*3/uL High <0.1 [facility] Comment on above: Performed By: #### L [id number] ####De Icer: MARY SOTELO ([id number])[address] IPF 3 Normal [facility] Comment on above: Performed By: #### L [id number] ####De Icer: MARY SOTELO ([phone])[address] Lymphocytes (Bld) [#/Vol] 1.3 10*3/uL Normal 1.0-4.3 [facility] Comment on above: Performed By: #### L [id number] ####De Icer: MARY SOTELO ([phone])[facility])[address] [place] [address] Lymphocytes/100 WBC (Bld) 17.0 % Normal 15.0-45.0 [facility] Comment on above: Performed By: #### L [id number] ####De Icer: MARY SOTELO ([id number])[facility])[address] [place] [address] MCH (RBC) [Entitic mass] 28.8 pg Normal 26.0-34.0 [facility] Comment on above: Performed By: #### L [id number] ####De Icer: MARY SOTELO ([id number])[facility])[address] [place] [address] MCHC 30.5 % Normal 30.5-36.0 [facility] Comment on above: Performed By: #### L [id number] ####De Icer: MARY SOTELO ([id number])[facility])[address] [place] [address] MCV (RBC) [Entitic vol] 94.7 fL Normal 77.0-99.0 [facility] Comment on above: Performed By: #### L [id number] ####De Icer: MARY SOTELO ([id number])[facility])[address] [place] [address] Monocytes (Bld) [#/Vol] 0.5 10*3/uL Normal 0.0-0.9 [facility] Comment on above: Performed By: #### L [id number] ####De Icer: MARY SOTELO ([id number])[facility])[address] [place] [address] Monocytes/100 WBC (Bld) 6.1 % Normal 5.0-13.0 [facility] Comment on above: Performed By: #### L [id number] ####De Icer: MARY SOTELO ([id number])[facility] ([facility])[address] [place] [address] NEUTROPHILS ABSOLUTE 5.5 10*3/uL Normal 1.8-7.5 [facility] Comment on above: Performed By: #### L [id number] ####De Icer: MARY SOTELO ([id number])[facility] ([facility])[address] [place] [address] Neutrophils/100 WBC (Bld) 71.4 % Normal 38.0-82.0 [facility] Comment on above: Performed By: #### L [id number] ####De Icer: MARY SOTELO ([id number])[facility] ([facility])[address] [place] [address] NRBC 0.0 /100 WBCs Normal 0.0-2.0 [facility] Comment on above: Performed By: #### L [id number] ####De Icer: MARY SOTELO ([id number])[facility] ([facility])[address] [place] [address] Platelet mean volume (Bld) [Entitic vol] 10.5 fL Normal 9.0-12.7 [facility] Comment on above: Performed By: #### L [id number] ####De Icer: MARY SOTELO ([id number])[facility] ([facility])[address] [place] [address] Platelets (Bld) [#/Vol] 108 10*3/uL Low 140-440 [facility] Comment on above: Performed By: #### L [id number] ####De Icer: MARY SOTELO ([id number])[facility] ([facility])[address] [place] [address] RBC (Bld) [#/Vol] 2.81 10*6/uL Low 3.80-5.20 [facility] Comment on above: Performed By: #### L [id number] ####De Icer: MARY SOTELO ([id number])[facility] ([facility])[address] [place] [address] WBC (Bld) [#/Vol] 7.7 10*3/uL Normal 3.6-10.7 [facility] Comment on above: Performed By: #### L [id number] ####De Icer: MARY SOTELO ([id number])[facility] ([facility])[address] [place] [address] COMPLETE URINALYSISon 2023 BACTERIA (#/HPF) IN URINE Moderate Abnormal Negative [facility] Comment on above: Performed By: #### L [id number] ####De Icer: MARY SOTELO ([id number])[facility])[address] [place] [address] BILIRUBIN, TOTAL PRESENCE IN URINE Negative Normal Negative [facility] Comment on above: Performed By: #### L [id number] ####De Icer: MARY SOTELO ([id number])[facility] ([facility])[address] [place] [address] Clarity (U) Extra Turbid Abnormal Clear [facility] Comment on above: Performed By: #### L [id number] ####De Icer: MARY SOTELO ([id number])[facility])[address] [place] [address] Color (U) Yellow Normal Lt. Yellow [facility] Comment on above: Performed By: #### L [id number] ####De Icer: MARY SOTELO ([id number])[facility] ([facility])[address] [place] [address] Glucose (U) [Mass/Vol] 50 mg/dL Normal Normal (<70) [facility] Comment on above: Performed By: #### L [id number] ####De Icer: MARY SOTELO ([id number])[facility])[address] [place] [address] HEMOGLOBIN PRESENCE IN URINE >1.0 Abnormal Negative [facility] Comment on above: Performed By: #### L [id number] ####De Icer: MARY SOTELO ([id number])[facility] ([facility])[address] [place] [address] HYALINE CASTS (#/LPF) IN URINE SEDIMENT BY MICROSCOPY Negative Normal Negative [facility] Comment on above: Performed By: #### L [id number] ####De Icer: MARY SOTELO ([id number])[facility] ([facility])[address] [place] [address] Ketones Ql (U) Negative Normal Negative [facility] Comment on above: Performed By: #### L [id number] ####De Icer: MARY SOTELO ([id number])[facility])[address] [place] [address] LEUKOCYTE ESTERASE PRESENCE IN URINE BY TEST STRIP 500 Bere/uL Abnormal Negative [facility] Comment on above: Performed By: #### L [id number] ####De Icer: MARY SOTELO ([id number])[facility] ([facility])[address] [place] [address] NITRITE PRESENCE IN URINE Negative Normal Negative [facility] Comment on above: Performed By: #### L [id number] ####De Icer: MARY SOTELO ([id number])[facility] ([facility])[address] [place] [address] pH (U) 5.0 [pH] Normal 5.0-8.0 [facility] Comment on above: Performed By: #### L [id number] ####De Icer: MARY SOTELO ([id number])[facility] ([facility])[address] [place] [address] Protein (U) [Mass/Vol] 70 mg/dL Abnormal Negative [facility] Comment on above: Performed By: #### L [id number] ####De Icer: MARY SOTELO ([id number])[facility] ([facility])[address] [place] [address] RBC (#/HPF) IN URINE SEDIMENT >100 Abnormal 0-2 [facility] Comment on above: Performed By: #### L [id number] ####De Icer: MARY SOTELO ([id number])[facility] ([facility])[address] [place] [address] Specific gravity (U) [Rel density] 1.007 Normal 1.005-1.030 [facility] Comment on above: Performed By: #### L [id number] ####De Icer: MARY SOTELO ([id number])[facility] ([facility])[address] [place] [address] [place] SQUAMOUS EPITHELIAL CELLS (#/HPF) IN URINE SEDIMENT 3-5 Normal 3-5 [facility] Comment on above: Performed By: #### L [id number] ####De Icer: MARY SOTELO ([id number])[facility] ([facility])[address] [place] [address] UROBILINOGEN (MG/DL) IN URINE Normal Normal Normal (0-1) [facility] Comment on above: Performed By: #### L [id number] ####De Icer: MARY SOTELO ([id number])[facility] ([facility])[address] [place] [address] [place] WBC (LEUKOCYTE) (#/HPF) IN URINE SEDIMENT >100 Abnormal 0-5 [facility] Comment on above: Performed By: #### L [id number] ####De Icer: MARY SOTELO ([id number])[facility] ([facility])[address] [place] [address] [place] WBC (LEUKOCYTE) CLUMPS (#/HPF) IN URINE SEDIMENT Many Abnormal Negative [facility] Comment on above: Performed By: #### L [id number] ####De Icer: MARY SOTELO ([id number])[facility] ([facility])[address] [place] [address] [place] YEAST (#/HPF) IN URINE Loaded Abnormal Negative [facility] Comment on above: Performed By: #### L [id number] ####De Icer: MARY SOTELO ([id number])[facility] ([facility])[address] [place] [address] [place] CREATININE, URINE, RANDOMon 10-07-2024 CREATININE, URINE 41.3 mg/dL Normal No Range [facility] Comment on above: Performed By: #### L [id number], [id number] ####De Icer: MARY SOTELO ([id number])[facility] [place] [address] Creatinine (U) [Mass/Vol]on 08-09-2024 CREATININE, URINE 41.3 mg/dL No Range [facility] GLUCOSE, RANDOMon 08-09-2024 Glucose [Mass/Vol] 216 mg/dL High 70-100 [facility] Comment on above: Performed By: #### L [id number] ####De Icer: MARY SOTELO ([id number])[facility] [place] [address] Glucose (Bld) [Mass/Vol]on 1 Glucose [Mass/Vol] 216 mg/dL High 70 - 100 mg/dL [facility] Interpretation and review of laboratory results Abnormal [facility] IDNon 08-09-2024 IDN Normal [facility] IDN Normal [facility] Laboratory - Chemistry and C hemistry - challengeon 08-09-2024 Glucose [Mass/Vol] 164 mg/dL High 70 - 100 mg/dL [facility] Glucose [Mass/Vol] 264 mg/dL High 70 - 100 mg/dL [facility] Glucose [Mass/Vol] 246 mg/dL High 70 - 100 mg/dL [facility] Glucose [Mass/Vol] 153 mg/dL High 70 - 100 mg/dL [facility] Glucose [Mass/Vol] 144 mg/dL High 70 - 100 mg/dL [facility] Glucose [Mass/Vol] 115 mg/dL High 70 - 100 mg/dL [facility] Glucose [Mass/Vol] mg/dL Low 70 - 100 mg/dL [facility] Glucose [Mass/Vol] 83 mg/dL 70 - 100 mg/dL [facility] Glucose [Mass/Vol] 70 mg/dL 70 - 100 mg/dL [facility] Glucose [Mass/Vol] mg/dL Low 70 - 100 mg/dL [facility] Magnesium [Mass/Vol] 1.8 mg/dL 1.6 - 2 .3 mg/dL [facility] Laboratory - Urinalysison Protein (U) [Mass/Vol] 107 mg/dL High 0 - 12 mg/dL [facility] MAGNESIUMon 08-09-2024 Magnesium [Mass/Vol] 1.8 mg/dL Normal 1.6-2.3 [facility] Comment on above: Performed By: #### L [id number], [id number], [id number] ####De Icer: MARY SOTELO ([id number])[facility] [place] [address] Magnesium [Mass/Vol]on 08-09 Interpretation and review of laboratory results Normal [facility] Panel Informationon 08-09 Interpretation and review of laboratory results Abnormal [facility] Interpretation and review of laboratory results Abnormal [facility] Interpretation and review of laboratory results Abnormal [facility] Interpretation and review of laboratory results Abnormal [facility] Interpretation and review of laboratory results Abnormal [facility] Interpretation and review of laboratory results Abnormal [facility] Interpretation and review of laboratory results Abnormal [facility] Interpretation and review of laboratory results Abnormal [facility] Interpretation and review of laboratory results Normal [facility] Interpretation and review of laboratory results Normal [facility] Interpretation and review of laboratory results Abnormal [facility] Nursing Noteon 08-09-2024 Nursing Note Normal [facility] PHOSPHORUSon 08-09-2024 Phosphate [Mass/Vol] 4.1 mg/dL Normal 2.5-4.5 [facility] Comment on above: Performed By: #### L [id number], [id number], LAB15 ####De Icer: MARY SOTELO ([id number])[facility] [place] [address] [place] PROTEIN, URINE, RANDOMon Protein (U) [Mass/Vol] 107 mg/dL High 0-12 [facility] Comment on above: Performed By: #### L [id number], [id number] ####De Icer: MARY SOTELO ([id number])[facility] ([facility])[address] [place] [address] [place] Phosphate [Moles/Vol]on Interpretation and review of laboratory results Normal [facility] Phosphate [Mass/Vol] 4.1 mg/dL 2.5 - 4 .5 mg/dL [facility] Progress Noteon 08-09-2024 Progress Note Normal [facility] Progress Note Normal [facility] Progress Note Normal [facility] Progress Note Normal [facility] Progress Note Normal [facility] URINE CULTUREon 08-09-2024 Bacteria identified Cx Nom (U) Normal [facility] Comment on above: Performed By: #### L [id number] ####De Icer: MARY SOTELO ([id number])[facility] ([facility])[address] [place] [address] Urinalysis complete panel (U )on 08-09-2024 Bacteria LM.HPF (Urine sed) [#/Area] Moderate Abnormal Negative /HPF [facility] Bilirubin Ql (U) Negative Negative mg/dL [facility] Clarity (U) Extra Turbid Abnormal [facility] (U) Yellow Lt. Yellow [facility] Epithelial cells.squamous LM.HPF (Urine sed) [#/Area] 3-5 [facility] Glucose Ql (U) 50 mg/dL Normal (<70) [facility] Hemoglobin Ql (U) >1.0 Abnormal Negative mg/dL [facility] Hyaline casts Auto (Urine sed) [#/Area] Negative Negative /LPF [facility] Interpretation and review of laboratory results Abnormal [facility] Ketones (U) [Mass/Vol] Negative Negat pawan mg/dL [facility] Leukocyte clumps LM.HPF (Urine sed) [#/Area] Many Abnormal Negative /HPF [facility] Leukocyte esterase Test strip Ql (U) 500 Abnormal Negative Bere/uL [facility] Nitrite Ql (U) Negative Negative [facility] th pH (U) 5.0 [pH] 5.0 - 8.0 pH [facility] Protein (U) [Mass/Vol] 70 mg/dL Abnormal Negative [facility] RBC LM.HPF (Urine sed) [#/Area] /[HPF] Abnormal [facility] Specific gravity (U) [Rel density] 1.007 1.005 - 1.030 [facility] Urobilinogen (U) [Mass/Vol] Normal Normal (0-1) mg/dL [facility] WBC LM.HPF (Urine sed) [#/Area] /[HPF] Abnormal [facility] Yeast.budding LM.HPF (Urine sed) [#/Area] Loaded Abnormal Negative /HPF [facility] ALBUMINon 08-08-2024 Albumin [Mass/Vol] 2.7 g/dL Low 3.5-5.0 [facility] Comment on above: Performed By: #### L AB45, [id number], LAB15, [id number] ####De Icer: MARY SOTELO ([id number])[facility] ([facility])[address] [place] [address] BASIC METABOLIC PANELon Anion gap [Moles/Vol] 2 mmol/L Low 3-13 [facility] Comment on above: Performed By: #### L AB45, [id number], LAB15, [id number] ####De Icer: MARY SOTELO ([id number])[facility] ([facility])[address] [place] [address] Calcium [Mass/Vol] 6.9 mg/dL Low 8.4-10.4 [facility] Comment on above: Performed By: #### L AB45, [id number], LAB15, [id number] ####De Icer: MARY SOTELO ([id number])[facility] ([facility])[address] [place] [address] [place] Chloride [Moles/Vol] 100 mmol/L Normal 98-107 [facility] Comment on above: Performed By: #### L AB45, [id number], LAB15, [id number] ####De Icer: MARY SOTELO ([id number])[facility] ([facility])[address] [place] [address] [place] CO2 [Moles/Vol] 32 mmol/L High 22-30 [facility] Comment on above: Performed By: #### L AB45, [id number], LAB15, [id number] ####De Icer: MARY SOTELO ([id number])[facility])[address] [place] [address] Creatinine [Mass/Vol] 1.51 mg/dL High 0.52-1.04 [facility] Comment on above: Performed By: #### L AB45, IME152, LAB15, BBS818 ####De Icer: MARY SOTELO ([id number])[facility])[address] [place] [address] GLOMERULAR FILTRATION RATE ML/MIN/1.73 SQ M.PREDICTED 38.4 mL/min/1.73m*2 Low >60.0 [facility] Comment on above: Result Comment: Calc ulation based on the Chronic Kidney Disease Epidemiology Collaboration (CKD-EPI) equation refit without adjustment for race Performed By: #### L AB45, [id number], LAB15, [id number] ####De Icer: MARY SOTELO ([id number])[facility])[address] [place] [address] Glucose [Mass/Vol] 293 mg/dL High 70-100 [facility] Comment on above: Performed By: #### L AB45, [id number], LAB15, [id number] ####De Icer: MARY SOTELO ([id number])[facility])[address] [place] [address] Potassium [Moles/Vol] 3.7 mmol/L Normal 3.5-5.1 [facility] Comment on above: Performed By: #### L AB45, [id number], LAB15, [id number] ####De Icer: MARY SOTELO ([phone])[facility])[address] [place] [address] Sodium [Moles/Vol] 134 mmol/L Low 135-145 [facility] Comment on above: Performed By: #### L AB45, [id number], LAB15, [id number] ####De Icer: MARY SOTELO ([id number])[facility] [place] [address] Urea nitrogen [Mass/Vol] 14 mg/dL Normal 7-17 [facility] Comment on above: Performed By: #### L AB45, [id number], LAB15, [id number] ####De Icer: MARY SOTELO ([id number])[facility] [place] [address] Basic metabolic 1998 panelon 08-08-2024 Anion gap [Moles/Vol] 2 mmol/L Low 3 - 13 mmol/L [facility] Calcium [Mass/Vol] 6.9 mg/dL Low 8.4 - 10. 4 mg/dL [facility] Chloride [Moles/Vol] 100 mmol/L 98 - 10 7 mmol/L [facility] CO2 [Moles/Vol] 32 mmol/L High 22 - 30 mmol/L [facility] Creatinine [Mass/Vol] 1.51 mg/dL High 0.52 - 1.04 mg/dL [facility] GFR/1.73 sq M.predicted (S/P/Bld) [Vol rate/Area] 38.4 mL/min Low - PINF [facility] Glucose [Mass/Vol] 293 mg/dL High 70 - 100 mg/dL [facility] Potassium [Moles/Vol] 3.7 mmol/L 3.5 - 5.1 mmol/L [facility] Sodium [Moles/Vol] 134 mmol/L Low 135 - 145 mmol/L [facility] Urea nitrogen [Mass/Vol] 14 mg/dL 7 - 17 mg/dL [facility] CBC W Auto Differential pane l (Bld)on 08-08-2024 Basophils (Bld) [#/Vol] 0.0 10*3/uL 0.0 - 0.2 10*3/uL [facility] Basophils/100 WBC (Bld) 0.1 % 0.0 - 2.0 % [facility] Eosinophils (Bld) [#/Vol] 0.3 10*3/uL 0.0 - 0.5 10*3/uL [facility] Eosinophils/100 WBC (Bld) 4.0 % 0.0 - 6.0 % [facility] Erythrocyte distribution width (RBC) [Ratio] 17.2 % High 11.5 - 15.0 % [facility] Hematocrit (Bld) [Volume fraction] 28.9 % Low 35.0 - 47.0 % [facility] Hemoglobin (Bld) [Mass/Vol] 8.7 g/dL Low 11.7 - 16.0 g/dL [facility] Immature granulocytes (Bld) [#/Vol] 0.1 10*3/uL High NINF - 0.1 10*3/uL [facility] Immature granulocytes/100 WBC (Bld) 1.3 % 0.0 - 2.0 % [facility] Interpretation and review of laboratory results Abnormal [facility] IPF 3 [facility] Lymphocytes (Bld) [#/Vol] 0.9 10*3/uL Low 1.0 - 4.3 10*3/uL [facility] Lymphocytes/100 WBC (Bld) 11.8 % Low 15.0 - 45.0 % [facility] MCH (RBC) [Entitic mass] 28.8 pg 26.0 - 34.0 pg [facility] MCHC (RBC) [Mass/Vol] 30.1 % Low 30.5 - 36.0 % [facility] MCV (RBC) [Entitic vol] 95.7 fL 77.0 - 99.0 fL [facility] Monocytes (Bld) [#/Vol] 0.3 10*3/uL 0.0 - 0.9 10*3/uL [facility] Monocytes/100 WBC (Bld) 4.5 % Low 5.0 - 13.0 % [facility] Neutrophils (Bld) [#/Vol] 5.9 10*3/uL 1.8 - 7.5 10*3/uL [facility] Neutrophils/100 WBC (Bld) 78.3 % 38.0 - 82.0 % [facility] Nucleated RBC/100 WBC (Bld) [Ratio] 0.0 % [facility] Platelet mean volume (Bld) [Entitic vol] 10.8 fL 9.0 - 12.7 fL [facility] Platelets (Bld) [#/Vol] 118 10*3/uL Low 140 - 440 10*3/uL [facility] RBC (Bld) [#/Vol] 3.02 10*6/uL Low 3.80 - 5.2 0 10*6/uL [facility] WBC (Bld) [#/Vol] 7.6 10*3/uL 3.6 - 10.7 10*3/uL [facility] CBC WITH AUTO DIFFERENTIALon 08-08-2024 Basophils (Bld) [#/Vol] 0.0 10*3/uL Normal 0.0-0.2 [facility] Comment on above: Performed By: #### L [id number] ####De Icer: MARY SOTELO ([id number])[facility])[address] [place] [address] Basophils/100 WBC (Bld) 0.1 % Normal 0.0-2.0 [facility] Comment on above: Performed By: #### L [id number] ####De Icer: MARY SOTELO ([id number])[facility])[address] [place] [address] Eosinophils (Bld) [#/Vol] 0.3 10*3/uL Normal 0.0-0.5 [facility] Comment on above: Performed By: #### L [id number] ####De Icer: MARY SOTELO ([id number])[facility])[address] [place] [address] Eosinophils/100 WBC (Bld) 4.0 % Normal 0.0-6.0 [facility] Comment on above: Performed By: #### L [id number] ####De Icer: MARY SOTELO ([id number])[facility])[address] [place] [address] Erythrocyte distribution width (RBC) [Ratio] 17.2 % High 11.5-15.0 [facility] Comment on above: Performed By: #### L [id number] ####De Icer: MARY SOTELO ([id number])[facility])[address] [place] [address] Hematocrit (Bld) [Volume fraction] 28.9 % Low 35.0-47.0 [facility] Comment on above: Performed By: #### L [id number] ####De Icer: MARY [id number])[facility] [place] [address] Hemoglobin (Bld) [Mass/Vol] 8.7 g/dL Low 11.7-16.0 [facility] Comment on above: Performed By: #### L [id number] ####De Icer: MARY SOTELO ([id number])[facility])[address] [place] [address] IMMATURE GRANS % 1.3 % Normal 0.0-2.0 [facility] Comment on above: Performed By: #### L [id number] ####De Icer: MARY SOTELO ([id number])[facility])[address] [place] [address] IMMATURE GRANS ABSOLUTE 0.1 10*3/uL High <0.1 [facility] Comment on above: Performed By: #### L [id number] ####De Icer: MARY SOTELO ([phone])[facility])[address] [place] [address] IPF 3 Normal [facility] Comment on above: Performed By: #### L [id number] ####De Icer: MARY SOTELO ([id number])[facility])[address] [place] [address] Lymphocytes (Bld) [#/Vol] 0.9 10*3/uL Low 1.0-4.3 [facility] Comment on above: Performed By: #### L [id number] ####De Icer: MARY SOTELO ([id number])[facility])[address] [place] [address] Lymphocytes/100 WBC (Bld) 11.8 % Low 15.0-45.0 [facility] Comment on above: Performed By: #### L [id number] ####De Icer: MARY SOTELO ([id number])[facility])[address] [place] [address] MCH (RBC) [Entitic mass] 28.8 pg Normal 26.0-34.0 [facility] Comment on above: Performed By: #### L [id number] ####De Icer: MARY SOTELO ([id number])[facility])[address] [place] [address] MCHC 30.1 % Low 30.5-36.0 [facility] Comment on above: Performed By: #### L [id number] ####De Icer: MARY SOTELO ([id number])[facility])[address] [place] [address] MCV (RBC) [Entitic vol] 95.7 fL Normal 77.0-99.0 [facility] Comment on above: Performed By: #### L [id number] ####De Icer: MARY SOTELO ([id number])[facility])[address] [place] [address] Monocytes (Bld) [#/Vol] 0.3 10*3/uL Normal 0.0-0.9 [facility] Comment on above: Performed By: #### L [id number] ####De Icer: MARY SOTELO ([id number])[facility])[address] [place] [address] Monocytes/100 WBC (Bld) 4.5 % Low 5.0-13.0 [facility] Comment on above: Performed By: #### L [id number] ####De Icer: MARY SOTELO ([id number])[facility])[address] [place] [address] NEUTROPHILS ABSOLUTE 5.9 10*3/uL Normal 1.8-7.5 [facility] Comment on above: Performed By: #### L [id number] ####De Icer: MARY SOTELO ([id number])[facility])[address] [place] [address] Neutrophils/100 WBC (Bld) 78.3 % Normal 38.0-82.0 [facility] Comment on above: Performed By: #### L [id number] ####De Icer: MARY SOTELO ([id number])[facility])[address] [place] [address] NRBC 0.0 /100 WBCs Normal 0.0-2.0 [facility] Comment on above: Performed By: #### L [id number] ####De Icer: MARY SOTELO ([id number])[facility] ([facility])[address] [place] [address] Platelet mean volume (Bld) [Entitic vol] 10.8 fL Normal 9.0-12.7 [facility] Comment on above: Performed By: #### L [id number] ####De Icer: MARY SOTELO ([id number])[facility])[address] [place] [address] Platelets (Bld) [#/Vol] 118 10*3/uL Low 140-440 [facility] Comment on above: Performed By: #### L [id number] ####De Icer: MARY SOTELO ([id number])[facility] ([facility])[address] [place] [address] RBC (Bld) [#/Vol] 3.02 10*6/uL Low 3.80-5.20 [facility] Comment on above: Performed By: #### L [id number] ####De Icer: MARY SOTELO ([id number])[facility])[address] [place] [address] WBC (Bld) [#/Vol] 7.6 10*3/uL Normal 3.6-10.7 [facility] Comment on above: Performed By: #### L [id number] ####De Icer: MARY SOTELO ([id number])[facility])[address] [place] [address] IDNon 08-08-2024 IDN Normal [facility] IDN Normal [facility] Laboratory - Chemistry and C hemistry - challengeon 08-08-2024 Glucose [Mass/Vol] 218 mg/dL High 70 - 100 mg/dL [facility] Glucose [Mass/Vol] 245 mg/dL High 70 - 100 mg/dL [facility] Glucose [Mass/Vol] 334 mg/dL High 70 - 100 mg/dL [facility] Glucose [Mass/Vol] 314 mg/dL High 70 - 100 mg/dL [facility] Albumin [Mass/Vol] 2.7 g/dL Low 3.5 - 5.0 g/dL [facility] Magnesium [Mass/Vol] 1.7 mg/dL 1.6 - 2 .3 mg/dL [facility] MAGNESIUMon 08-08-2024 Magnesium [Mass/Vol] 1.7 mg/dL Normal 1.6-2.3 [facility] Comment on above: Performed By: #### L [id number], [id number], LAB15, [id number] ####De Icer: MARY SOTELO ([id number])[facility])[address] [place] [address] [place] Magnesium [Mass/Vol]on 08-08 Interpretation and review of laboratory results Normal [facility] No Panel Informationon 08-08 Interpretation and review of laboratory results Abnormal [facility] Interpretation and review of laboratory results Abnormal [facility] Interpretation and review of laboratory results Abnormal [facility] Interpretation and review of laboratory results Abnormal [facility] Interpretation and review of laboratory results Abnormal [facility] Interpretation and review of laboratory results Abnormal [facility] PHOSPHORUSon 08-08-2024 Phosphate [Mass/Vol] 2.1 mg/dL Low 2.5-4.5 [facility] Comment on above: Performed By: #### L [id number], [id number], LAB15, [id number] ####De Icer: MARY SOTELO ([id number])[facility] ([facility])[address] [place] [address] [place] Phosphate [Moles/Vol]on Phosphate [Mass/Vol] 2.1 mg/dL Low 2.5 - 4 .5 mg/dL [facility] Progress Noteon 08-08-2024 Progress Note Normal [facility] Progress Note Normal [facility] Progress Note Normal [facility] XR CHEST 1 VIEWon 10-06-2024 XR CHEST 1 VIEW Normal [facility] XR Chest Single viewon 08-08 [facility] Study observation (narrative) [facility] XR Chest Single viewOrdered By: Kalia Foy on 08-08-2024 [facility] Work Phone: BASIC METABOLIC PANELon 10-0 Anion gap [Moles/Vol] 1 mmol/L Low 3-13 [facility] Comment on above: Performed By: #### L [id number], [id number], LAB15 ####De Icer: MARY SOTELO ([id number])[facility] [place] [address] Calcium [Mass/Vol] 6.9 mg/dL Low 8.4-10.4 [facility] Comment on above: Performed By: #### L AB103, [id number], LAB15 ####De Icer: MARY SOTELO ([id number])[facility] [place] [address] Chloride [Moles/Vol] 102 mmol/L Normal 98-107 [facility] Comment on above: Performed By: #### L AB103, [id number], LAB15 ####De Icer: MARY SOTELO ([id number])[facility] [place] [address] [place] CO2 [Moles/Vol] 31 mmol/L High 22-30 [facility] Comment on above: Performed By: #### L AB103, [id number], LAB15 ####De Icer: MARY SOTELO ([id number])[facility] [place] [address] [place] Creatinine [Mass/Vol] 2.07 mg/dL High 0.52-1.04 [facility] Comment on above: Performed By: #### L AB103, [id number], LAB15 ####De Icer: MARY SOTELO ([id number])[facility] [place] [address] [place] GLOMERULAR FILTRATION RATE ML/MIN/1.73 SQ M.PREDICTED 26.3 mL/min/1.73m*2 Low >60.0 [facility] Comment on above: Result Comment: Calc ulation based on the Chronic Kidney Disease Epidemiology Collaboration (CKD-EPI) equation refit without adjustment for race Performed By: #### L AB103, [id number], LAB15 ####De Icer: MARY SOTELO ([id number])[facility])[address] [place] [address] Glucose [Mass/Vol] 141 mg/dL High 70-100 [facility] Comment on above: Performed By: #### L AB103, [id number], LAB15 ####De Icer: MARY SOTELO ([id number])[facility])[address] [place] [address] Potassium [Moles/Vol] 4.2 mmol/L Normal 3.5-5.1 [facility] Comment on above: Performed By: #### Dora AB103, [id number], LAB15 ####De Icer: MARY SOTELO ([id number])[facility] ([facility])[address] [place] [address] Sodium [Moles/Vol] 134 mmol/L Low 135-145 [facility] Comment on above: Performed By: #### Dora AB103, [id number], LAB15 ####De Icer: MARY SOTELO ([id number])[facility])[address] [place] [address] Urea nitrogen [Mass/Vol] 23 mg/dL High 7-17 [facility] Comment on above: Performed By: #### L AB103, [id number], LAB15 ####De Icer: MARY SOTELO ([id number])[facility])[address] [place] [address] Basic metabolic 1998 panelon 08-07-2024 Anion gap [Moles/Vol] 1 mmol/L Low 3 - 13 mmol/L [facility] Calcium [Mass/Vol] 6.9 mg/dL Low 8.4 - 10. 4 mg/dL [facility] Chloride [Moles/Vol] 102 mmol/L 98 - 10 7 mmol/L [facility] CO2 [Moles/Vol] 31 mmol/L High 22 - 30 mmol/L [facility] Creatinine [Mass/Vol] 2.07 mg/dL High 0.52 - 1.04 mg/dL [facility] GFR/1.73 sq M.predicted (S/P/Bld) [Vol rate/Area] 26.3 mL/min Low - PINF [facility] Glucose [Mass/Vol] 141 mg/dL High 70 - 100 mg/dL [facility] Interpretation and review of laboratory results Abnormal [facility] Potassium [Moles/Vol] 4.2 mmol/L 3.5 - 5.1 mmol/L [facility] Sodium [Moles/Vol] 134 mmol/L Low 135 - 145 mmol/L [facility] Urea nitrogen [Mass/Vol] 23 mg/dL High 7 - 17 mg/dL [facility] CBC W Auto Differential pane l (Bld)Ordered By: Nicole Lakhani on 08-07-2024 Basophils (Bld) [#/Vol] 0.0 10*3/uL 0.0 - 0.2 10*3/uL [facility] Basophils/100 WBC (Bld) 0.1 % 0.0 - 2.0 % [facility] Eosinophils (Bld) [#/Vol] 0.5 10*3/uL 0.0 - 0.5 10*3/uL [facility] Eosinophils/100 WBC (Bld) 5.9 % 0.0 - 6.0 % [facility] Erythrocyte distribution width (RBC) [Ratio] 17.4 % High 11.5 - 15.0 % [facility] Hematocrit (Bld) [Volume fraction] 26.7 % Low 35.0 - 47.0 % [facility] Hemoglobin (Bld) [Mass/Vol] 8.1 g/dL Low 11.7 - 16.0 g/dL [facility] Immature granulocytes (Bld) [#/Vol] 0.1 10*3/uL High NINF - 0.1 10*3/uL [facility] Immature granulocytes/100 WBC (Bld) 1.0 % 0.0 - 2.0 % [facility] Interpretation and review of laboratory results Abnormal [facility] IPF 2 [facility] Lymphocytes (Bld) [#/Vol] 1.4 10*3/uL 1.0 - 4.3 10*3/uL [facility] Lymphocytes/100 WBC (Bld) 17.9 % 15.0 - 45.0 % [facility] MCH (RBC) [Entitic mass] 28.6 pg 26.0 - 34.0 pg [facility] MCHC (RBC) [Mass/Vol] 30.3 % Low 30.5 - 36.0 % [facility] MCV (RBC) [Entitic vol] 94.3 fL 77.0 - 99.0 fL [facility] Monocytes (Bld) [#/Vol] 0.6 10*3/uL 0.0 - 0.9 10*3/uL [facility] Monocytes/100 WBC (Bld) 7.2 % 5.0 - 13.0 % [facility] Neutrophils (Bld) [#/Vol] 5.5 10*3/uL 1.8 - 7.5 10*3/uL [facility] Neutrophils/100 WBC (Bld) 67.9 % 38.0 - 82.0 % [facility] Nucleated RBC/100 WBC (Bld) [Ratio] 0.0 % [facility] Platelet mean volume (Bld) [Entitic vol] 9.8 fL 9.0 - 12.7 fL [facility] Platelets (Bld) [#/Vol] 128 10*3/uL Low 140 - 440 10*3/uL [facility] RBC (Bld) [#/Vol] 2.83 10*6/uL Low 3.80 - 5.2 0 10*6/uL [facility] WBC (Bld) [#/Vol] 8.0 10*3/uL 3.6 - 10.7 10*3/uL [facility] CBC WITH AUTO DIFFERENTIALon 08-07-2024 Basophils (Bld) [#/Vol] 0.0 10*3/uL Normal 0.0-0.2 [facility] Comment on above: Performed By: #### L [id number] ####De Icer: MARY SOTELO ([id number])[facility] ([address] Basophils/100 WBC (Bld) 0.1 % Normal 0.0-2.0 [facility] Comment on above: Performed By: #### L [id number] ####De Icer: MARY SOTELO ([id number])[facility])[address] [place] [address] Eosinophils (Bld) [#/Vol] 0.5 10*3/uL Normal 0.0-0.5 [facility] Comment on above: Performed By: #### L [id number] ####De Icer: MARY SOTELO ([id number])[facility])[address] [place] [address] Eosinophils/100 WBC (Bld) 5.9 % Normal 0.0-6.0 [facility] Comment on above: Performed By: #### L [id number] ####De Icer: MARY SOTELO ([id number])[address] Erythrocyte distribution width (RBC) [Ratio] 17.4 % High 11.5-15.0 [facility] Comment on above: Performed By: #### L [id number] ####De Icer: MARY SOTELO ([id number])[address] Hematocrit (Bld) [Volume fraction] 26.7 % Low 35.0-47.0 [facility] Comment on above: Performed By: #### L [id number] ####De Icer: MARY SOTELO ([id number])[address] Hemoglobin (Bld) [Mass/Vol] 8.1 g/dL Low 11.7-16.0 [facility] Comment on above: Performed By: #### L [id number] ####De Icer: MARY SOTELO ([id number])[address] IMMATURE GRANS % 1.0 % Normal 0.0-2.0 [facility] Comment on above: Performed By: #### L [id number] ####De Icer: MARY SOTELO ([id number])[facility] [address] IMMATURE GRANS ABSOLUTE 0.1 10*3/uL High <0.1 [facility] Comment on above: Performed By: #### L [id number] ####De Icer: MARY SOTELO ([id number])[facility])[address] [place] [address] IPF 2 Normal [facility] Comment on above: Performed By: #### L [id number] ####De Icer: MARY SOTELO ([id number])[facility])[address] [place] [address] Lymphocytes (Bld) [#/Vol] 1.4 10*3/uL Normal 1.0-4.3 [facility] Comment on above: Performed By: #### L [id number] ####De Icer: MARY SOTELO ([id number])[address] Lymphocytes/100 WBC (Bld) 17.9 % Normal 15.0-45.0 [facility] Comment on above: Performed By: #### L [id number] ####De Icer: MARY SOTELO ([id number])[address] MCH (RBC) [Entitic mass] 28.6 pg Normal 26.0-34.0 [facility] Comment on above: Performed By: #### L [id number] ####De Icer: MARY SOTELO ([id number])[address] MCHC 30.3 % Low 30.5-36.0 [facility] Comment on above: Performed By: #### L [id number] ####De Icer: MARY SOTELO ([id number])[address] MCV (RBC) [Entitic vol] 94.3 fL Normal 77.0-99.0 [facility] Comment on above: Performed By: #### L [id number] ####De Icer: MARY SOTELO ([id number])[facility] ([facility])[address] [place] [address] Monocytes (Bld) [#/Vol] 0.6 10*3/uL Normal 0.0-0.9 [facility] Comment on above: Performed By: #### L [id number] ####De Icer: MARY SOTELO ([id number])[facility] ([facility])[address] [place] [address] Monocytes/100 WBC (Bld) 7.2 % Normal 5.0-13.0 [facility] Comment on above: Performed By: #### L [id number] ####De Icer: MARY SOTELO ([id number])[facility] ([facility])[address] [place] [address] NEUTROPHILS ABSOLUTE 5.5 10*3/uL Normal 1.8-7.5 [facility] Comment on above: Performed By: #### L [id number] ####De Icer: MARY SOTELO ([id number])[facility] ([facility])[address] [place] [address] Neutrophils/100 WBC (Bld) 67.9 % Normal 38.0-82.0 [facility] Comment on above: Performed By: #### L [id number] ####De Icer: MARY SOTELO ([id number])[facility] ([facility])[address] [place] [address] NRBC 0.0 /100 WBCs Normal 0.0-2.0 [facility] Comment on above: Performed By: #### L [id number] ####De Icer: MARY SOTELO ([id number])[facility])[address] [place] [address] Platelet mean volume (Bld) [Entitic vol] 9.8 fL Normal 9.0-12.7 [facility] Comment on above: Performed By: #### L [id number] ####De Icer: MARY SOTELO ([id number])[facility])[address] [place] [address] Platelets (Bld) [#/Vol] 128 10*3/uL Low 140-440 [facility] Comment on above: Performed By: #### L [id number] ####De Icer: MARY SOTELO ([id number])[facility] ([facility])[address] [place] [address] RBC (Bld) [#/Vol] 2.83 10*6/uL Low 3.80-5.20 [facility] Comment on above: Performed By: #### L [id number] ####De Icer: MARY SOTELO ([id number])[facility] ([facility])[address] [place] [address] WBC (Bld) [#/Vol] 8.0 10*3/uL Normal 3.6-10.7 [facility] Comment on above: Performed By: #### L [id number] ####De Icer: MARY SOTELO ([id number])[facility] ([facility])[address] [place] [address] IDNon 08-07-2024 IDN Normal [facility] IDN Normal [facility] Laboratory - Chemistry and C hemistry - challengeon 08-07-2024 Glucose [Mass/Vol] 176 mg/dL High 70 - 100 mg/dL [facility] Glucose [Mass/Vol] 283 mg/dL High 70 - 100 mg/dL [facility] Glucose [Mass/Vol] 249 mg/dL High 70 - 100 mg/dL [facility] Glucose [Mass/Vol] 179 mg/dL High 70 - 100 mg/dL [facility] Magnesium [Mass/Vol] 1.9 mg/dL 1.6 - 2 .3 mg/dL [facility] MAGNESIUMon 08-07-2024 Magnesium [Mass/Vol] 1.9 mg/dL Normal 1.6-2.3 [facility] Comment on above: Performed By: #### L AB103, [id number], LAB15 ####De Icer: MARY SOTELO ([id number])[facility] ([facility])[address] [place] [address] No Panel Informationon 08-07 Interpretation and review of laboratory results Abnormal [facility] Interpretation and review of laboratory results Abnormal [facility] Interpretation and review of laboratory results Abnormal [facility] Interpretation and review of laboratory results Abnormal [facility] Interpretation and review of laboratory results Normal [facility] Nursing Noteon 08-07-2024 Nursing Note Normal [facility] PHOSPHORUSon 08-07-2024 Phosphate [Mass/Vol] 3.7 mg/dL Normal 2.5-4.5 [facility] Comment on above: Performed By: #### L AB103, [id number], LAB15 ####De Icer: MARY SOTELO ([id number])[facility] ([facility])[address] [place] [address] [place] Phosphate [Moles/Vol]on Phosphate [Mass/Vol] 3.7 mg/dL 2.5 - 4 .5 mg/dL [facility] Progress Noteon 08-07-2024 Progress Note Normal [facility] Progress Note Normal [facility] RESPIRATORY PATHOGENS PANEL BY PCRon 08-07-2024 RESPIRATORY PATHOGENS PANEL BY PCR Normal [facility] Comment on above: Performed By: #### L [id number] ####De Icer: MARY SOTELO ([id number])[facility] ([facility])[address] [place] [address] Respiratory pathogens DNA an d RNA panel MARISA+non-probe (Nph)on 08-07-2024 Adenovirus Not detected Not Detected [facility] B. pertussis DNA MARISA+probe Ql (Unsp spec) Not detected Not Detected [facility] Bordetella parapertussis Not detected Not Detected [facility] Chlamydia pneumoniae Not detected Not Detected [facility] Coronavirus 229E Not detected Not Detected [facility] Coronavirus HKU1 Not detected Not Detected [facility] Coronavirus NL63 Not detected Not Detected [facility] Coronavirus OC43 Not detected Not Detected [facility] FLUAV RNA MARISA+non-probe Ql (Nph) Not detected Not Detected [facility] FLUBV RNA MARISA+non-probe Ql (Nph) Not detected Not Detected [facility] Human Metapneumovirus Not detected Not Detected [facility] Rhinovirus/Enterovirus Not detected Not Detected [facility] Interpretation and review of laboratory results Normal [facility] Mycoplasma pneumoniae Not detected Not Detected [facility] Parainfluenza 1 Not detected Not Detected [facility] Parainfluenza 2 Not detected Not Detected [facility] Parainfluenza 3 Not detected Not Detected [facility] Parainfluenza 4 Not detected Not Detected [facility] Respiratory Syncytial Virus Not detected Not Detected [facility] SARS-CoV-2 (COVID-19) RNA MARISA+non-probe Ql (Nph) Not detected Not Detected [facility] BASIC METABOLIC PANELon 10-0 Anion gap [Moles/Vol] 2 mmol/L Low 3-13 [facility] Comment on above: Performed By: #### L AB103, LAB15, [id number] ####De Icer: MARY SOTELO ([id number])[facility] ([facility])[address] [place] [address] Calcium [Mass/Vol] 7.4 mg/dL Low 8.4-10.4 [facility] Comment on above: Performed By: #### L AB103, LAB15, [id number] ####De Icer: MARY SOTELO ([id number])[facility] [place] [address] [place] Chloride [Moles/Vol] 99 mmol/L Normal 98-107 [facility] Comment on above: Performed By: #### L AB103, LAB15, [id number] ####De Icer: MARY SOTELO ([id number])[facility] [place] [address] [place] CO2 [Moles/Vol] 32 mmol/L High 22-30 [facility] Comment on above: Performed By: #### L AB103, LAB15, [id number] ####De Icer: MARY SOTELO ([id number])[facility] [place] [address] [place] Creatinine [Mass/Vol] 1.40 mg/dL High 0.52-1.04 [facility] Comment on above: Performed By: #### L AB103, LAB15, [id number] ####De Icer: MARY SOTLEO ([id number])[facility])[address] [place] [address] GLOMERULAR FILTRATION RATE ML/MIN/1.73 SQ M.PREDICTED 42.1 mL/min/1.73m*2 Low >60.0 [facility] Comment on above: Result Comment: Calc ulation based on the Chronic Kidney Disease Epidemiology Collaboration (CKD-EPI) equation refit without adjustment for race Performed By: #### L AB103, LAB15, [id number] ####De Icer: MARY SOTELO ([id number])[facility])[address] [place] [address] Glucose [Mass/Vol] 184 mg/dL High 70-100 [facility] Comment on above: Performed By: #### Dora AB103, LAB15, [id number] ####De Icer: MARY SOTELO ([id number])[facility])[address] [place] [address] Potassium [Moles/Vol] 3.1 mmol/L Low 3.5-5.1 [facility] Comment on above: Performed By: #### L AB103, LAB15, [id number] ####De Icer: MARY SOTELO ([id number])[facility] ([facility])[address] [place] [address] Sodium [Moles/Vol] 133 mmol/L Low 135-145 [facility] Comment on above: Performed By: #### L AB103, LAB15, [id number] ####De Icer: MARY SOTELO ([id number])[facility] ([facility])[address] [place] [address] Urea nitrogen [Mass/Vol] 16 mg/dL Normal 7-17 [facility] Comment on above: Performed By: #### L AB103, LAB15, [id number] ####De Icer: MARY SOTELO ([id number])[facility])[address] [place] [address] BLOOD TYPE AND SCREEN GELon 08-06-2024 ABO GROUPING O Normal [facility] Comment on above: Performed By: #### L [id number] ####De Icer: MARY SOTELO ([id number])[facility] BLOOD BANK ([facility])[address] [place] [address] RH TYPE IN BLOOD Positive Normal [facility] Comment on above: Performed By: #### L [id number] ####De Icer: MARY SOTELO ([id number])[facility] BLOOD [facility] ([facility])[address] [place] [address] Basic metabolic 1998 panelon 08-06-2024 Anion gap [Moles/Vol] 2 mmol/L Low 3 - 13 mmol/L [facility] Calcium [Mass/Vol] 7.4 mg/dL Low 8.4 - 10. 4 mg/dL [facility] Chloride [Moles/Vol] 99 mmol/L 98 - 10 7 mmol/L [facility] CO2 [Moles/Vol] 32 mmol/L High 22 - 30 mmol/L [facility] Creatinine [Mass/Vol] 1.40 mg/dL High 0.52 - 1.04 mg/dL [facility] GFR/1.73 sq M.predicted (S/P/Bld) [Vol rate/Area] 42.1 mL/min Low - PINF [facility] Glucose [Mass/Vol] 184 mg/dL High 70 - 100 mg/dL [facility] Interpretation and review of laboratory results Abnormal [facility] Potassium [Moles/Vol] 3.1 mmol/L Low 3.5 - 5.1 mmol/L [facility] Sodium [Moles/Vol] 133 mmol/L Low 135 - 145 mmol/L [facility] Urea nitrogen [Mass/Vol] 16 mg/dL 7 - 17 mg/dL [facility] Blood type and Crossmatch pa eunice (Bld)on 08-06-2024 ABO group Nom (Bld) O [facility] Blood group antibody screen GEL Ql Negative [facility] D Ag Ql (RBC) Positive [facility] CARECOORDon 08-06-2024 CARECOORD Per nephro - UMA. Ho pe to recover . Line is tunneled . Nephrology updated on plans to work on out pt and placement . Normal [facility] Normal [facility] Normal [facility] Normal [facility] Normal [facility] CBC W Auto Differential pane l (Bld)on 08-06-2024 Basophils (Bld) [#/Vol] 0.0 10*3/uL 0.0 - 0.2 10*3/uL [facility] Basophils/100 WBC (Bld) 0.2 % 0.0 - 2.0 % [facility] Eosinophils (Bld) [#/Vol] 0.4 10*3/uL 0.0 - 0.5 10*3/uL [facility] Eosinophils/100 WBC (Bld) 6.6 % High 0.0 - 6.0 % [facility] Erythrocyte distribution width (RBC) [Ratio] 17.8 % High 11.5 - 15.0 % [facility] Hematocrit (Bld) [Volume fraction] 21.6 % Low 35.0 - 47.0 % [facility] Hemoglobin (Bld) [Mass/Vol] 6.6 g/dL Critically low 11.7 - 16.0 g/dL [facility] Immature granulocytes (Bld) [#/Vol] 0.1 10*3/uL High NINF - 0.1 10*3/uL [facility] Immature granulocytes/100 WBC (Bld) 0.8 % 0.0 - 2.0 % [facility] Interpretation and review of laboratory results Abnormal [facility] IPF 3 [facility] Lymphocytes (Bld) [#/Vol] 1.2 10*3/uL 1.0 - 4.3 10*3/uL [facility] Lymphocytes/100 WBC (Bld) 17.9 % 15.0 - 45.0 % [facility] MCH (RBC) [Entitic mass] 28.4 pg 26.0 - 34.0 pg [facility] MCHC (RBC) [Mass/Vol] 30.6 % 30.5 - 36.0 % [facility] MCV (RBC) [Entitic vol] 93.1 fL 77.0 - 99.0 fL [facility] Monocytes (Bld) [#/Vol] 0.5 10*3/uL 0.0 - 0.9 10*3/uL [facility] Monocytes/100 WBC (Bld) 7.2 % 5.0 - 13.0 % [facility] Neutrophils (Bld) [#/Vol] 4.4 10*3/uL 1.8 - 7.5 10*3/uL [facility] Neutrophils/100 WBC (Bld) 67.3 % 38.0 - 82.0 % [facility] Nucleated RBC/100 WBC (Bld) [Ratio] 0.0 % [facility] Platelet mean volume (Bld) [Entitic vol] 10.6 fL 9.0 - 12.7 fL [facility] Platelets (Bld) [#/Vol] 120 10*3/uL Low 140 - 440 10*3/uL [facility] RBC (Bld) [#/Vol] 2.32 10*6/uL Low 3.80 - 5.2 0 10*6/uL [facility] WBC (Bld) [#/Vol] 6.5 10*3/uL 3.6 - 10.7 10*3/uL [facility] CBC WITH AUTO DIFFERENTIALon 08-06-2024 Basophils (Bld) [#/Vol] 0.0 10*3/uL Normal 0.0-0.2 [facility] Comment on above: Performed By: #### L [id number] ####De Icer: MARY [id number])[facility])[address] [place] [address] Basophils/100 WBC (Bld) 0.2 % Normal 0.0-2.0 [facility] Comment on above: Performed By: #### L [id number] ####De Icer: MARY [id number])[facility] ([facility])[address] [place] [address] [place] Eosinophils (Bld) [#/Vol] 0.4 10*3/uL Normal 0.0-0.5 [facility] Comment on above: Performed By: #### L [id number] ####De Icer: MARY SOTELO ([id number])[facility] ([facility])[address] [place] [address] [place] Eosinophils/100 WBC (Bld) 6.6 % High 0.0-6.0 [facility] Comment on above: Performed By: #### L [id number] ####De Icer: MARY SOTELO ([id number])[address] Erythrocyte distribution width (RBC) [Ratio] 17.8 % High 11.5-15.0 [facility] Comment on above: Performed By: #### L [id number] ####De Icer: MARY SOTELO ([id number])[facility])[address] [place] [address] Hematocrit (Bld) [Volume fraction] 21.6 % Low 35.0-47.0 [facility] Comment on above: Performed By: #### L [id number] ####De Icer: MARY SOTELO ([id number])[address] Hemoglobin (Bld) [Mass/Vol] 6.6 g/dL Critically low 11.7-16.0 [facility] Comment on above: Performed By: #### L [id number] ####De Icer: MARY SOTELO ([id number])[address] IMMATURE GRANS % 0.8 % Normal 0.0-2.0 [facility] Comment on above: Performed By: #### L [id number] ####De Icer: MARY SOTELO ([id number])[address] IMMATURE GRANS ABSOLUTE 0.1 10*3/uL High <0.1 [facility] Comment on above: Performed By: #### L [id number] ####De Icer: MARY SOTELO ([id number])[address] IPF 3 Normal [facility] Comment on above: Performed By: #### L [id number] ####De Icer: MARY SOTELO ([id number])[facility])[address] [place] [address] Lymphocytes (Bld) [#/Vol] 1.2 10*3/uL Normal 1.0-4.3 [facility] Comment on above: Performed By: #### L [id number] ####De Icer: MARY SOTELO ([id number])[facility])[address] [place] [address] Lymphocytes/100 WBC (Bld) 17.9 % Normal 15.0-45.0 [facility] Comment on above: Performed By: #### L [id number] ####De Icer: MARY SOTELO ([id number])[facility])[address] [place] [address] MCH (RBC) [Entitic mass] 28.4 pg Normal 26.0-34.0 [facility] Comment on above: Performed By: #### L [id number] ####De Icer: MARY SOTELO ([id number])[facility])[address] [place] [address] MCHC 30.6 % Normal 30.5-36.0 [facility] Comment on above: Performed By: #### L [id number] ####De Icer: MARY SOTELO ([id number])[facility])[address] [place] [address] MCV (RBC) [Entitic vol] 93.1 fL Normal 77.0-99.0 [facility] Comment on above: Performed By: #### L [id number] ####De Icer: MARY SOTELO ([id number])[facility])[address] [place] [address] Monocytes (Bld) [#/Vol] 0.5 10*3/uL Normal 0.0-0.9 [facility] Comment on above: Performed By: #### L [id number] ####De Icer: MARY SOTELO ([id number])[facility])[address] [place] [address] Monocytes/100 WBC (Bld) 7.2 % Normal 5.0-13.0 [facility] Comment on above: Performed By: #### L [id number] ####De Icer: MARY SOTELO ([id number])[facility] ([facility])[address] [place] [address] NEUTROPHILS ABSOLUTE 4.4 10*3/uL Normal 1.8-7.5 [facility] Comment on above: Performed By: #### L [id number] ####De Icer: MARY SOTELO ([id number])[facility] ([facility])[address] [place] [address] Neutrophils/100 WBC (Bld) 67.3 % Normal 38.0-82.0 [facility] Comment on above: Performed By: #### L [id number] ####De Icer: MARY SOTELO ([id number])[facility] ([facility])[address] [place] [address] NRBC 0.0 /100 WBCs Normal 0.0-2.0 [facility] Comment on above: Performed By: #### L [id number] ####De Icer: MARY SOTELO ([id number])[facility] ([facility])[address] [place] [address] Platelet mean volume (Bld) [Entitic vol] 10.6 fL Normal 9.0-12.7 [facility] Comment on above: Performed By: #### L [id number] ####De Icer: MARY SOTELO ([id number])[facility] ([facility])[address] [place] [address] Platelets (Bld) [#/Vol] 120 10*3/uL Low 140-440 [facility] Comment on above: Performed By: #### L [id number] ####De Icer: MARY SOTELO ([id number])[facility] ([facility])[address] [place] [address] RBC (Bld) [#/Vol] 2.32 10*6/uL Low 3.80-5.20 [facility] Comment on above: Performed By: #### L [id number] ####De Icer: MARY SOTELO ([id number])[facility] ([facility])[address] [place] [address] WBC (Bld) [#/Vol] 6.5 10*3/uL Normal 3.6-10.7 [facility] Comment on above: Performed By: #### L [id number] ####De Icer: MARY SOTELO ([id number])[facility] ([facility])[address] [place] [address] HEMOGLOBIN AND HEMATOCRIT, B LOODon 08-06-2024 Hematocrit (Bld) [Volume fraction] 25.2 % Low 35.0-47.0 [facility] Comment on above: Order Comment: Recom mend 1 hour post transfusion Performed By: #### L [id number] ####De Icer: MARY SOTELO ([id number])[facility] ([facility])[address] [place] [address] Hemoglobin (Bld) [Mass/Vol] 7.9 g/dL Low 11.7-16.0 [facility] Comment on above: Order Comment: Recom mend 1 hour post transfusion Performed By: #### L [id number] ####De Icer: MARY SOTELO ([id number])[facility] ([facility])[address] [place] [address] Hemoglobin (Bld) [Mass/Vol]o n 08-06-2024 Hematocrit (Bld) [Volume fraction] 25.2 % Low 35.0 - 47.0 % [facility] Interpretation and review of laboratory results Abnormal [facility] IDNon 08-06-2024 IDN The patient is Moderately Stable - Low risk of patient condition declining or worsening The patient's goals for the shift include The clinical goals for the shift include Normal [facility] IDN Normal [facility] IDN Normal [facility] Laboratory - Chemistry and C hemistry - challengeon 08-06-2024 Glucose [Mass/Vol] 271 mg/dL High 70 - 100 mg/dL [facility] Glucose [Mass/Vol] 305 mg/dL High 70 - 100 mg/dL [facility] Glucose [Mass/Vol] 333 mg/dL High 70 - 100 mg/dL [facility] Glucose [Mass/Vol] 199 mg/dL High 70 - 100 mg/dL [facility] Magnesium [Mass/Vol] 1.9 mg/dL 1.6 - 2 .3 mg/dL [facility] Laboratory - Hematology and Cell countson 08-06-2024 Hemoglobin (Bld) [Mass/Vol] 7.9 g/dL Low 11.7 - 16.0 g/dL [facility] MAGNESIUMon 08-06-2024 Magnesium [Mass/Vol] 1.9 mg/dL Normal 1.6-2.3 [facility] Comment on above: Performed By: #### L AB103, LAB15, [id number] ####De Icer: MARY SOTELO ([id number])[facility] ([address] Magnesium [Mass/Vol]on 08-06 Interpretation and review of laboratory results Normal [facility] No Panel Informationon 08-06 Interpretation and review of laboratory results Abnormal [facility] Interpretation and review of laboratory results Abnormal [facility] Interpretation and review of laboratory results Abnormal [facility] Interpretation and review of laboratory results Abnormal [facility] Blood Expiration Date S [facility] Crossmatch interpretation COMP [facility] Dispense Status Transfused [facility] Product Blood Type 5100 [facility] PRODUCT CODE [id number] [facility] Unit ABO O [facility] Unit Number [id number] [facility] alth Unit RH Positive [facility] Unit Volume 300 mL [facility] Nursing Noteon 08-06-2024 Nursing Note Patient bladder scanned for 113 ml. Patient states she does not need to void. Message sent to Dr Luiza Drummond [facility] Nursing Note Central line dressin g changed, patient tolerated well Normal [facility] Nursing Note Johnson removed per orders, patient tolerated well Normal [facility] PHOSPHORUSon 08-06-2024 Phosphate [Mass/Vol] 2.2 mg/dL Low 2.5-4.5 [facility] Comment on above: Performed By: #### L AB103, LAB15, [id number] ####De Icer: MARY SOTELO ([id number])[facility] ([facility])[address] [place] [address] [place] Phosphate [Moles/Vol]on Interpretation and review of laboratory results Abnormal [facility] Phosphate [Mass/Vol] 2.2 mg/dL Low 2.5 - 4 .5 mg/dL [facility] Progress Noteon 08-06-2024 Progress Note Normal [facility] Progress Note Normal [facility] Progress Note Normal [facility] Progress Note OCCUPATIONAL THERAPY [facility] Name/MRN: Sandy Deng ([id number]) Date: 08/06/2024 Hold OT this a.m.; HgB 6.6 with order to transfuse. Will follow and treat as appropriate. GUILLERMO Taylor Normal [facility] Progress Note Normal [facility] BASIC METABOLIC PANELon Anion gap [Moles/Vol] 0 mmol/L Low 3-13 [facility] Comment on above: Performed By: #### L AB103, [id number], LAB15 ####De Icer: MARY SOTELO ([id number])[facility] ([facility])[address] [place] [address] [place] Calcium [Mass/Vol] 6.7 mg/dL Low 8.4-10.4 [facility] Comment on above: Performed By: #### L AB103, [id number], LAB15 ####De Icer: MARY SOTELO ([id number])[facility] ([facility])[address] [place] [address] [place] Chloride [Moles/Vol] 105 mmol/L Normal 98-107 [facility] Comment on above: Performed By: #### L AB103, [id number], LAB15 ####De Icer: MARY SOTELO ([id number])[facility] ([facility])[address] [place] [address] [place] CO2 [Moles/Vol] 26 mmol/L Normal 22-30 [facility] Comment on above: Performed By: #### L AB103, [id number], LAB15 ####De Icer: MARY SOTELO ([id number])[facility])[address] [place] [address] Creatinine [Mass/Vol] 2.56 mg/dL High 0.52-1.04 [facility] Comment on above: Performed By: #### L AB103, [id number], LAB15 ####De Icer: MARY SOTELO ([id number])[facility])[address] [place] [address] GLOMERULAR FILTRATION RATE ML/MIN/1.73 SQ M.PREDICTED 20.4 mL/min/1.73m*2 Low >60.0 [facility] Comment on above: Result Comment: Calc ulation based on the Chronic Kidney Disease Epidemiology Collaboration (CKD-EPI) equation refit without adjustment for race Performed By: #### Dora AB103, [id number], LAB15 ####De Icer: MARY SOTELO ([id number])[facility] ([facility])[address] [place] [address] Glucose [Mass/Vol] 151 mg/dL High 70-100 [facility] Comment on above: Performed By: #### L AB103, [id number], LAB15 ####De Icer: MARY SOTELO ([phone])[facility])[address] [place] [address] Potassium [Moles/Vol] 4.0 mmol/L Normal 3.5-5.1 [facility] Comment on above: Performed By: #### L AB103, [id number], LAB15 ####De Icer: MARY SOTELO ([id number])[facility])[address] [place] [address] Sodium [Moles/Vol] 132 mmol/L Low 135-145 [facility] Comment on above: Performed By: #### L AB103, [id number], LAB15 ####De Icer: MARY SOTELO ([id number])[facility])[address] [place] [address] [place] Urea nitrogen [Mass/Vol] 35 mg/dL High 7-17 [facility] Comment on above: Performed By: #### L AB103, [id number], LAB15 ####De Icer: MARY SOTELO ([id number])[facility] ([facility])[address] [place] [address] Basic metabolic 1998 panelon 08-05-2024 Anion gap [Moles/Vol] 0 mmol/L Low 3 - 13 mmol/L [facility] Calcium [Mass/Vol] 6.7 mg/dL Low 8.4 - 10. 4 mg/dL [facility] Chloride [Moles/Vol] 105 mmol/L 98 - 10 7 mmol/L [facility] CO2 [Moles/Vol] 26 mmol/L 22 - 30 mmol/L [facility] Creatinine [Mass/Vol] 2.56 mg/dL High 0.52 - 1.04 mg/dL [facility] GFR/1.73 sq M.predicted (S/P/Bld) [Vol rate/Area] 20.4 mL/min Low - PINF [facility] Glucose [Mass/Vol] 151 mg/dL High 70 - 100 mg/dL [facility] Interpretation and review of laboratory results Abnormal [facility] Potassium [Moles/Vol] 4.0 mmol/L 3.5 - 5.1 mmol/L [facility] Sodium [Moles/Vol] 132 mmol/L Low 135 - 145 mmol/L [facility] Urea nitrogen [Mass/Vol] 35 mg/dL High 7 - 17 mg/dL [facility] CARECOORDon 08-05-2024 [facility] requested PT/OT t o see today via see today tool to start auth. Normal [facility] CBC W Auto Differential pane l (Bld)on 08-05-2024 Basophils (Bld) [#/Vol] 0.0 10*3/uL 0.0 - 0.2 10*3/uL [facility] Basophils/100 WBC (Bld) 0.0 % 0.0 - 2.0 % [facility] Eosinophils (Bld) [#/Vol] 0.0 10*3/uL 0.0 - 0.5 10*3/uL [facility] Eosinophils/100 WBC (Bld) 0.5 % 0.0 - 6.0 % [facility] Erythrocyte distribution width (RBC) [Ratio] 17.7 % High 11.5 - 15.0 % [facility] Hematocrit (Bld) [Volume fraction] 23.6 % Low 35.0 - 47.0 % [facility] Hemoglobin (Bld) [Mass/Vol] 7.4 g/dL Low 11.7 - 16.0 g/dL [facility] Immature granulocytes (Bld) [#/Vol] 0.1 10*3/uL High NINF - 0.1 10*3/uL [facility] Immature granulocytes/100 WBC (Bld) 0.7 % 0.0 - 2.0 % [facility] Interpretation and review of laboratory results Abnormal [facility] Lymphocytes (Bld) [#/Vol] 0.7 10*3/uL Low 1.0 - 4.3 10*3/uL [facility] Lymphocytes/100 WBC (Bld) 9.8 % Low 15.0 - 45.0 % [facility] MCH (RBC) [Entitic mass] 28.4 pg 26.0 - 34.0 pg [facility] MCHC (RBC) [Mass/Vol] 31.4 % 30.5 - 36.0 % [facility] MCV (RBC) [Entitic vol] 90.4 fL 77.0 - 99.0 fL [facility] Monocytes (Bld) [#/Vol] 0.3 10*3/uL 0.0 - 0.9 10*3/uL [facility] Monocytes/100 WBC (Bld) 4.2 % Low 5.0 - 13.0 % [facility] Neutrophils (Bld) [#/Vol] 6.3 10*3/uL 1.8 - 7.5 10*3/uL [facility] Neutrophils/100 WBC (Bld) 84.8 % High 38.0 - 82.0 % [facility] Nucleated RBC/100 WBC (Bld) [Ratio] 0.0 % [facility] Platelet mean volume (Bld) [Entitic vol] 10.0 fL 9.0 - 12.7 fL [facility] Platelets (Bld) [#/Vol] 168 10*3/uL 140 - 440 10*3/uL [facility] RBC (Bld) [#/Vol] 2.61 10*6/uL Low 3.80 - 5.2 0 10*6/uL [facility] WBC (Bld) [#/Vol] 7.4 10*3/uL 3.6 - 10.7 10*3/uL [facility] CBC WITH AUTO DIFFERENTIALon 08-05-2024 Basophils (Bld) [#/Vol] 0.0 10*3/uL Normal 0.0-0.2 [facility] Comment on above: Performed By: #### L [id number] ####De Icer: MARY SOTELO ([id number])[facility])[address] [place] [address] Basophils/100 WBC (Bld) 0.0 % Normal 0.0-2.0 [facility] Comment on above: Performed By: #### L [id number] ####De Icer: MARY SOTELO ([id number])[facility])[address] [place] [address] Eosinophils (Bld) [#/Vol] 0.0 10*3/uL Normal 0.0-0.5 [facility] Comment on above: Performed By: #### L [id number] ####De Icer: MARY SOTELO ([id number])[facility])[address] [place] [address] Eosinophils/100 WBC (Bld) 0.5 % Normal 0.0-6.0 [facility] Comment on above: Performed By: #### L [id number] ####De Icer: MARY SOTELO ([id number])[facility])[address] [place] [address] Erythrocyte distribution width (RBC) [Ratio] 17.7 % High 11.5-15.0 [facility] Comment on above: Performed By: #### L [id number] ####De Icer: MARY SOTELO ([id number])[facility])[address] [place] [address] Hematocrit (Bld) [Volume fraction] 23.6 % Low 35.0-47.0 [facility] Comment on above: Performed By: #### L [id number] ####De Icer: MARY SOTELO ([id number])[facility])[address] [place] [address] Hemoglobin (Bld) [Mass/Vol] 7.4 g/dL Low 11.7-16.0 [facility] Comment on above: Performed By: #### L [id number] ####De Icer: MARY SOTELO ([id number])[facility])[address] [place] [address] IMMATURE GRANS % 0.7 % Normal 0.0-2.0 [facility] Comment on above: Performed By: #### L [id number] ####De Icer: MARY SOTELO ([id number])[address] IMMATURE GRANS ABSOLUTE 0.1 10*3/uL High <0.1 [facility] Comment on above: Performed By: #### L [id number] ####De Icer: MARY SOTELO ([id number])[facility])[address] [place] [address] Lymphocytes (Bld) [#/Vol] 0.7 10*3/uL Low 1.0-4.3 [facility] Comment on above: Performed By: #### L [id number] ####De Icer: MARY SOTELO ([id number])[facility])[address] [place] [address] Lymphocytes/100 WBC (Bld) 9.8 % Low 15.0-45.0 [facility] Comment on above: Performed By: #### L [id number] ####De Icer: MARY SOTELO ([id number])[facility])[address] [place] [address] MCH (RBC) [Entitic mass] 28.4 pg Normal 26.0-34.0 [facility] Comment on above: Performed By: #### L [id number] ####De Icer: MARY SOTELO ([id number])[facility] ([facility])[address] [place] [address] MCHC 31.4 % Normal 30.5-36.0 [facility] Comment on above: Performed By: #### L [id number] ####De Icer: MARY SOTELO ([id number])[facility] ([facility])[address] [place] [address] MCV (RBC) [Entitic vol] 90.4 fL Normal 77.0-99.0 [facility] Comment on above: Performed By: #### L [id number] ####De Icer: MARY SOTELO ([id number])[facility])[address] [place] [address] Monocytes (Bld) [#/Vol] 0.3 10*3/uL Normal 0.0-0.9 [facility] Comment on above: Performed By: #### L [id number] ####De Icer: MARY SOTELO ([id number])[facility] ([facility])[address] [place] [address] Monocytes/100 WBC (Bld) 4.2 % Low 5.0-13.0 [facility] Comment on above: Performed By: #### L [id number] ####De Icer: MARY SOTELO ([id number])[facility])[address] [place] [address] NEUTROPHILS ABSOLUTE 6.3 10*3/uL Normal 1.8-7.5 [facility] Comment on above: Performed By: #### L [id number] ####De Icer: MARY SOTELO ([id number])[facility] ([facility])[address] [place] [address] Neutrophils/100 WBC (Bld) 84.8 % High 38.0-82.0 [facility] Comment on above: Performed By: #### L [id number] ####De Icer: MARY SOTELO ([id number])[facility])[address] [place] [address] NRBC 0.0 /100 WBCs Normal 0.0-2.0 [facility] Comment on above: Performed By: #### L [id number] ####De Icer: MARY SOTELO ([id number])[facility] ([facility])[address] [place] [address] Platelet mean volume (Bld) [Entitic vol] 10.0 fL Normal 9.0-12.7 [facility] Comment on above: Performed By: #### L [id number] ####De Icer: MARY SOTELO ([id number])[facility] ([facility])[address] [place] [address] Platelets (Bld) [#/Vol] 168 10*3/uL Normal 140-440 [facility] Comment on above: Performed By: #### L [id number] ####De Icer: MARY SOTELO ([id number])[facility] ([facility])[address] [place] [address] RBC (Bld) [#/Vol] 2.61 10*6/uL Low 3.80-5.20 [facility] Comment on above: Performed By: #### L [id number] ####De Icer: MARY SOTELO ([id number])[facility] ([facility])[address] [place] [address] WBC (Bld) [#/Vol] 7.4 10*3/uL Normal 3.6-10.7 [facility] Comment on above: Performed By: #### L [id number] ####De Icer: MARY SOTELO ([id number])[facility])[address] [place] [address] LACTIC ACID WITH REFLEXon Lactate [Moles/Vol] 0.5 mmol/L Low 0.7-2.0 [facility] Comment on above: Performed By: #### L [id number] ####De Icer: MARY SOTELO ([id number])[facility] ([facility])[address] [place] [address] Laboratory - Chemistry and C hemistry - challengeon 08-05-2024 Glucose [Mass/Vol] 341 mg/dL High 70 - 100 mg/dL [facility] Glucose [Mass/Vol] 303 mg/dL High 70 - 100 mg/dL [facility] Procalcitonin [Mass/Vol] 0.16 ng/mL High 0.00 - 0.09 ng/mL [facility] Glucose [Mass/Vol] 285 mg/dL High 70 - 100 mg/dL [facility] Glucose [Mass/Vol] 139 mg/dL High 70 - 100 mg/dL [facility] Magnesium [Mass/Vol] 2.2 mg/dL 1.6 - 2 .3 mg/dL [facility] Lactate [Moles/Vol] 0.5 mmol/L Low 0.7 - 2. 0 mmol/L [facility] MAGNESIUMon 08-05-2024 Magnesium [Mass/Vol] 2.2 mg/dL Normal 1.6-2.3 [facility] Comment on above: Performed By: #### L [id number], [id number], LAB15 ####De Icer: MARY SOTELO ([id number])[address] No Panel Informationon 08-05 Interpretation and review of laboratory results Abnormal [facility] Interpretation and review of laboratory results Abnormal [facility] Interpretation and review of laboratory results Abnormal [facility] Interpretation and review of laboratory results Abnormal [facility] Interpretation and review of laboratory results Normal [facility] Interpretation and review of laboratory results Abnormal [facility] Nursing Noteon 08-05-2024 Nursing Note Normal [facility] PHOSPHORUSon 08-05-2024 Phosphate [Mass/Vol] 3.6 mg/dL Normal 2.5-4.5 [facility] Comment on above: Performed By: #### L AB103, [id number], LAB15 ####De Icer: MARY SOTELO ([id number])[facility] ([facility])[address] [place] [address] PROCALCITONIN TESTon 024 PROCALCITONIN 0.16 ng/mL High 0.00-0.09 [facility] Comment on above: Result Comment: ORDE R COMMENTS:PCT <0.50 = Low risk of severe sepsis and/or septic shock.PCT >2.00 = High risk of severe sepsis and/or septic shock. Performed By: #### L [id number] ####De Icer: MARY SOTELO ([id number])[facility] ([facility])[address] [place] [address] [place] Phosphate [Moles/Vol]on Phosphate [Mass/Vol] 3.6 mg/dL 2.5 - 4 .5 mg/dL [facility] Procalcitonin [Mass/Vol]on Interpretation and review of laboratory results Abnormal [facility] Progress Noteon 08-05-2024 Progress Note Normal [facility] Progress Note Normal [facility] Progress Note Normal [facility] Progress Note Normal [facility] Progress Note Normal [facility] Progress Note Normal [facility] XR CHEST 1 VIEWon 08-05-2024 XR CHEST 1 VIEW Normal [facility] XR Chest Single viewon 08-05 [facility] Radiology Study observation (narrative) [facility] BASIC METABOLIC PANELon Anion gap [Moles/Vol] 4 mmol/L Normal 3-13 [facility] Comment on above: Performed By: #### L [id number], [id number], LAB15 ####De Icer: MARY SOTELO ([id number])[facility] ([facility])[address] [place] [address] [place] Calcium [Mass/Vol] 7.0 mg/dL Low 8.4-10.4 [facility] Comment on above: Performed By: #### L AB113, [id number], LAB15 ####De Icer: MARY SOTELO ([id number])[facility] ([facility])[address] [place] [address] [place] Chloride [Moles/Vol] 104 mmol/L Normal 98-107 [facility] Comment on above: Performed By: #### L AB113, [id number], LAB15 ####De Icer: MARY SOTELO ([id number])[facility])[address] [place] [address] CO2 [Moles/Vol] 26 mmol/L Normal 22-30 [facility] Comment on above: Performed By: #### L AB113, [id number], LAB15 ####De Icer: MARY SOTELO ([id number])[facility])[address] [place] [address] Creatinine [Mass/Vol] 1.88 mg/dL High 0.52-1.04 [facility] Comment on above: Performed By: #### Dora AB113, [id number], LAB15 ####De Icer: MARY SOTELO ([id number])[facility])[address] [place] [address] GLOMERULAR FILTRATION RATE ML/MIN/1.73 SQ M.PREDICTED 29.6 mL/min/1.73m*2 Low >60.0 [facility] Comment on above: Result Comment: Calc ulation based on the Chronic Kidney Disease Epidemiology Collaboration (CKD-EPI) equation refit without adjustment for race Performed By: #### L AB113, [id number], LAB15 ####De Icer: MARY SOTELO ([id number])[facility] ([facility])[address] [place] [address] Glucose [Mass/Vol] 119 mg/dL High 70-100 [facility] Comment on above: Performed By: #### L AB113, [id number], LAB15 ####De Icer: MARY SOTELO ([id number])[facility])[address] [place] [address] Potassium [Moles/Vol] 3.6 mmol/L Normal 3.5-5.1 [facility] Comment on above: Performed By: #### L AB113, [id number], LAB15 ####De Icer: MARY SOTELO ([id number])[facility])[address] [place] [address] Sodium [Moles/Vol] 134 mmol/L Low 135-145 [facility] Comment on above: Performed By: #### L AB113, [id number], LAB15 ####De Icer: MARY SOTELO ([id number])[facility] ([facility])[address] [place] [address] Urea nitrogen [Mass/Vol] 24 mg/dL High 7-17 [facility] Comment on above: Performed By: #### L AB113, [id number], LAB15 ####De Icer: MARY SOTELO ([id number])[facility])[address] [place] [address] Basic metabolic 1998 panelon 08-04-2024 Anion gap [Moles/Vol] 4 mmol/L 3 - 13 mmol/L [facility] Calcium [Mass/Vol] 7.0 mg/dL Low 8.4 - 10. 4 mg/dL [facility] Chloride [Moles/Vol] 104 mmol/L 98 - 10 7 mmol/L [facility] CO2 [Moles/Vol] 26 mmol/L 22 - 30 mmol/L [facility] Creatinine [Mass/Vol] 1.88 mg/dL High 0.52 - 1.04 mg/dL [facility] GFR/1.73 sq M.predicted (S/P/Bld) [Vol rate/Area] 29.6 mL/min Low - PINF [facility] Glucose [Mass/Vol] 119 mg/dL High 70 - 100 mg/dL [facility] Interpretation and review of laboratory results Abnormal [facility] Potassium [Moles/Vol] 3.6 mmol/L 3.5 - 5.1 mmol/L [facility] Sodium [Moles/Vol] 134 mmol/L Low 135 - 145 mmol/L [facility] Urea nitrogen [Mass/Vol] 24 mg/dL High 7 - 17 mg/dL [facility] CALCIUM, IONIZEDon CALCIUM IONIZED 3.70 mg/dL Low 4.30-5.20 [facility] Comment on above: Performed By: #### L [id number] ####De Icer: MARY SOTELO ([id number])[facility] ([facility])[address] PH, IONIZED CALCIUM 7.45 Normal 7.31-7.46 [facility] Comment on above: Performed By: #### L [id number] ####De Icer: MARY SOTELO ([id number])[facility] ([facility])[address] CARECOORDon 08-04-2024 CARECOORD Normal [facility] CBC W Auto Differential pane l (Bld)on 08-04-2024 Basophils (Bld) [#/Vol] 0.0 10*3/uL 0.0 - 0.2 10*3/uL [facility] Basophils/100 WBC (Bld) 0.1 % 0.0 - 2.0 % [facility] Eosinophils (Bld) [#/Vol] 0.1 10*3/uL 0.0 - 0.5 10*3/uL [facility] Eosinophils/100 WBC (Bld) 0.7 % 0.0 - 6.0 % [facility] Erythrocyte distribution width (RBC) [Ratio] 17.4 % High 11.5 - 15.0 % [facility] Hematocrit (Bld) [Volume fraction] 26.5 % Low 35.0 - 47.0 % [facility] Hemoglobin (Bld) [Mass/Vol] 8.3 g/dL Low 11.7 - 16.0 g/dL [facility] Immature granulocytes (Bld) [#/Vol] 0.1 10*3/uL High NINF - 0.1 10*3/uL [facility] Immature granulocytes/100 WBC (Bld) 1.1 % 0.0 - 2.0 % [facility] Interpretation and review of laboratory results Abnormal [facility] Lymphocytes (Bld) [#/Vol] 0.7 10*3/uL Low 1.0 - 4.3 10*3/uL [facility] Lymphocytes/100 WBC (Bld) 8.4 % Low 15.0 - 45.0 % [facility] MCH (RBC) [Entitic mass] 28.5 pg 26.0 - 34.0 pg [facility] MCHC (RBC) [Mass/Vol] 31.3 % 30.5 - 36.0 % [facility] MCV (RBC) [Entitic vol] 91.1 fL 77.0 - 99.0 fL [facility] Monocytes (Bld) [#/Vol] 0.3 10*3/uL 0.0 - 0.9 10*3/uL [facility] Monocytes/100 WBC (Bld) 3.6 % Low 5.0 - 13.0 % [facility] Neutrophils (Bld) [#/Vol] 7.4 10*3/uL 1.8 - 7.5 10*3/uL [facility] Neutrophils/100 WBC (Bld) 86.1 % High 38.0 - 82.0 % [facility] Nucleated RBC/100 WBC (Bld) [Ratio] 0.0 % [facility] Platelet mean volume (Bld) [Entitic vol] 9.1 fL 9.0 - 12.7 fL [facility] Platelets (Bld) [#/Vol] 178 10*3/uL 140 - 440 10*3/uL [facility] RBC (Bld) [#/Vol] 2.91 10*6/uL Low 3.80 - 5.2 0 10*6/uL [facility] WBC (Bld) [#/Vol] 8.5 10*3/uL 3.6 - 10.7 10*3/uL [facility] CBC WITH AUTO DIFFERENTIALon 08-04-2024 Basophils (Bld) [#/Vol] 0.0 10*3/uL Normal 0.0-0.2 [facility] Comment on above: Performed By: #### L [id number] ####De Icer: MARY [id number])[address] Basophils/100 WBC (Bld) 0.1 % Normal 0.0-2.0 [facility] Comment on above: Performed By: #### L [id number] ####De Icer: MARY [id number])[address] Eosinophils (Bld) [#/Vol] 0.1 10*3/uL Normal 0.0-0.5 [facility] Comment on above: Performed By: #### L [id number] ####De Icer: MARY [id number])[facility])[address] [place] [address] Eosinophils/100 WBC (Bld) 0.7 % Normal 0.0-6.0 [facility] Comment on above: Performed By: #### L [id number] ####De Icer: MARY SOTELO ([id number])[facility])[address] [place] [address] Erythrocyte distribution width (RBC) [Ratio] 17.4 % High 11.5-15.0 [facility] Comment on above: Performed By: #### L [id number] ####De Icer: MARY SOTELO ([id number])[facility])[address] [place] [address] Hematocrit (Bld) [Volume fraction] 26.5 % Low 35.0-47.0 [facility] Comment on above: Performed By: #### L [id number] ####De Icer: AMRY SOTELO ([id number])[facility])[address] [place] [address] Hemoglobin (Bld) [Mass/Vol] 8.3 g/dL Low 11.7-16.0 [facility] Comment on above: Performed By: #### L [id number] ####De Icer: MARY SOTELO ([id number])[facility])[address] [place] [address] IMMATURE GRANS % 1.1 % Normal 0.0-2.0 [facility] Comment on above: Performed By: #### L [id number] ####De Icer: MARY SOTELO ([id number])[facility])[address] [place] [address] IMMATURE GRANS ABSOLUTE 0.1 10*3/uL High <0.1 [facility] Comment on above: Performed By: #### L [id number] ####De Icer: MARY SOTELO ([id number])[facility])[address] [place] [address] Lymphocytes (Bld) [#/Vol] 0.7 10*3/uL Low 1.0-4.3 [facility] Comment on above: Performed By: #### L [id number] ####De Icer: MARY SOTELO ([id number])[facility])[address] [place] [address] Lymphocytes/100 WBC (Bld) 8.4 % Low 15.0-45.0 [facility] Comment on above: Performed By: #### L [id number] ####De Icer: MARY SOTELO ([id number])[facility])[address] [place] [address] MCH (RBC) [Entitic mass] 28.5 pg Normal 26.0-34.0 [facility] Comment on above: Performed By: #### L [id number] ####De Icer: MARY SOTELO ([id number])[facility])[address] [place] [address] MCHC 31.3 % Normal 30.5-36.0 [facility] Comment on above: Performed By: #### L [id number] ####De Icer: MARY SOTELO ([id number])[facility])[address] [place] [address] MCV (RBC) [Entitic vol] 91.1 fL Normal 77.0-99.0 [facility] Comment on above: Performed By: #### L [id number] ####De Icer: MARY SOTELO ([id number])[facility])[address] [place] [address] Monocytes (Bld) [#/Vol] 0.3 10*3/uL Normal 0.0-0.9 [facility] Comment on above: Performed By: #### L [id number] ####De Icer: MARY SOTELO ([id number])[facility])[address] [place] [address] Monocytes/100 WBC (Bld) 3.6 % Low 5.0-13.0 [facility] Comment on above: Performed By: #### L [id number] ####De Icer: MARY SOTELO ([id number])[facility] ([facility])[address] [place] [address] NEUTROPHILS ABSOLUTE 7.4 10*3/uL Normal 1.8-7.5 [facility] Comment on above: Performed By: #### L [id number] ####De Icer: MARY SOTELO ([id number])[facility] ([facility])[address] [place] [address] Neutrophils/100 WBC (Bld) 86.1 % High 38.0-82.0 [facility] Comment on above: Performed By: #### L [id number] ####De Icer: MARY SOTELO ([id number])[facility] ([facility])[address] [place] [address] NRBC 0.0 /100 WBCs Normal 0.0-2.0 [facility] Comment on above: Performed By: #### L [id number] ####De Icer: MARY SOTELO ([id number])[facility] ([facility])[address] [place] [address] Platelet mean volume (Bld) [Entitic vol] 9.1 fL Normal 9.0-12.7 [facility] Comment on above: Performed By: #### L [id number] ####De Icer: MARY SOTELO ([id number])[facility] ([facility])[address] [place] [address] Platelets (Bld) [#/Vol] 178 10*3/uL Normal 140-440 [facility] Comment on above: Performed By: #### L [id number] ####De Icer: MARY SOTELO ([id number])[facility] ([facility])[address] [place] [address] RBC (Bld) [#/Vol] 2.91 10*6/uL Low 3.80-5.20 [facility] Comment on above: Performed By: #### L [id number] ####De Icer: M[facility] ([id number])[facility] [place] [address] WBC (Bld) [#/Vol] 8.5 10*3/uL Normal 3.6-10.7 [facility] Comment on above: Performed By: #### L [id number] ####De Icer: MARY SOTELO ([id number])[facility] ([facility])[address] [place] [address] Calcium.ionized [Moles/Vol]o n 08-04-2024 Calcium.ionized (Bld) [Moles/Vol] 3.70 mg/dL Low 4.30 - 5.20 mg/dL [facility] Interpretation and review of laboratory results Abnormal [facility] PH, IONIZED CALCIUM 7.45 7.31 - 7.46 [facility] IDNon 08-04-2024 IDN Normal [facility] Laboratory - Chemistry and C hemistry - challengeon 08-04-2024 Glucose [Mass/Vol] 167 mg/dL High 70 - 100 mg/dL [facility] Glucose [Mass/Vol] 181 mg/dL High 70 - 100 mg/dL [facility] Glucose [Mass/Vol] 191 mg/dL High 70 - 100 mg/dL [facility] Glucose [Mass/Vol] 113 mg/dL High 70 - 100 mg/dL [facility] Magnesium [Mass/Vol] 2.0 mg/dL 1.6 - 2 .3 mg/dL [facility] MAGNESIUMon 08-04-2024 Magnesium [Mass/Vol] 2.0 mg/dL Normal 1.6-2.3 [facility] Comment on above: Performed By: #### L [id number], [id number], [id number] ####De Icer: MARY SOTELO ([phone])[facility] [place] [address] No Panel Informationon 08-04 Interpretation and review of laboratory results Abnormal [facility] Interpretation and review of laboratory results Abnormal [facility] Interpretation and review of laboratory results Abnormal [facility] Interpretation and review of laboratory results Abnormal [facility] Interpretation and review of laboratory results Normal [facility] Nursing Noteon 08-04-2024 Nursing Note Normal [facility] PHOSPHORUSon 08-04-2024 Phosphate [Mass/Vol] 3.4 mg/dL Normal 2.5-4.5 [facility] Comment on above: Performed By: #### L [id number], [id number], [id number] ####De Icer: MARY SOTELO ([phone])[facility] ([facility])[address] [place] [address] Phosphate [Moles/Vol]on Phosphate [Mass/Vol] 3.4 mg/dL 2.5 - 4 .5 mg/dL [facility] Progress Noteon 08-04-2024 Progress Note Normal [facility] Progress Note Normal [facility] Progress Note Normal [facility] Progress Note Normal [facility] RF videography Hypopharynx a nd Esophagus Views for swallowing function W speech and W barium contrast Harman 08-04-2024 [facility] SYSTEM [facility] Radiology Study observation (narrative) [facility] RF videography Hypopharynx a nd Esophagus Views for swallowing function W speech and W barium contrast POOrdered By: Mynor Pulido on 08-04-2024 [facility] Work Phone: BASIC METABOLIC PANELon Anion gap [Moles/Vol] 1 mmol/L Low 3-13 [facility] Comment on above: Performed By: #### L [id number], LAB15, [id number] ####De Icer: MARY SOTELO ([id number])[facility] ([facility])[address] [place] [address] [place] Calcium [Mass/Vol] 7.4 mg/dL Low 8.4-10.4 [facility] Comment on above: Performed By: #### L AB103, LAB15, [id number] ####De Icer: MARY SOTELO ([id number])[facility] ([facility])[address] [place] [address] [place] Chloride [Moles/Vol] 110 mmol/L High 98-107 [facility] Comment on above: Performed By: #### L AB103, LAB15, [id number] ####De Icer: MARY SOTELO ([id number])[facility] ([facility])[address] [place] [address] CO2 [Moles/Vol] 26 mmol/L Normal 22-30 [facility] Comment on above: Performed By: #### L AB103, LAB15, [id number] ####De Icer: MARY SOTELO ([id number])[facility] ([facility])[address] [place] [address] Creatinine [Mass/Vol] 2.29 mg/dL High 0.52-1.04 [facility] Comment on above: Performed By: #### Dora AB103, LAB15, [id number] ####De Icer: MARY SOTELO ([id number])[facility])[address] [place] [address] GLOMERULAR FILTRATION RATE ML/MIN/1.73 SQ M.PREDICTED 23.3 mL/min/1.73m*2 Low >60.0 [facility] Comment on above: Result Comment: Calc ulation based on the Chronic Kidney Disease Epidemiology Collaboration (CKD-EPI) equation refit without adjustment for race Performed By: #### Dora SONG, LAB15, [id number] ####De Icer: MARY SOTELO ([id number])[facility] ([facility])[address] [place] [address] Glucose [Mass/Vol] 87 mg/dL Normal 70-100 [facility] Comment on above: Performed By: #### Dora ABErika, LAB15, [id number] ####De Icer: MARY SOTELO ([id number])[facility] [place] [address] [place] Potassium [Moles/Vol] 4.3 mmol/L Normal 3.5-5.1 [facility] Comment on above: Performed By: #### Dora AB103, LAB15, [id number] ####De Icer: MARY SOTELO ([id number])[facility])[address] [place] [address] [place] Sodium [Moles/Vol] 137 mmol/L Normal 135-145 [facility] Comment on above: Performed By: #### L AB103, LAB15, [id number] ####De Icer: MARY SOTELO ([id number])[facility])[address] [place] [address] Urea nitrogen [Mass/Vol] 28 mg/dL High 7-17 [facility] Comment on above: Performed By: #### L AB103, LAB15, [id number] ####De Icer: MARY SOTELO ([id number])[facility] ([facility])[address] [place] [address] Basic metabolic 1998 panelon 08-03-2024 Anion gap [Moles/Vol] 1 mmol/L Low 3 - 13 mmol/L [facility] Calcium [Mass/Vol] 7.4 mg/dL Low 8.4 - 10. 4 mg/dL [facility] Chloride [Moles/Vol] 110 mmol/L High 98 - 10 7 mmol/L [facility] CO2 [Moles/Vol] 26 mmol/L 22 - 30 mmol/L [facility] Creatinine [Mass/Vol] 2.29 mg/dL High 0.52 - 1.04 mg/dL [facility] GFR/1.73 sq M.predicted (S/P/Bld) [Vol rate/Area] 23.3 mL/min Low - PINF [facility] Glucose [Mass/Vol] 87 mg/dL 70 - 100 mg/dL [facility] Potassium [Moles/Vol] 4.3 mmol/L 3.5 - 5.1 mmol/L [facility] Sodium [Moles/Vol] 137 mmol/L 135 - 145 mmol/L [facility] Urea nitrogen [Mass/Vol] 28 mg/dL High 7 - 17 mg/dL [facility] CALCIUM, IONIZEDon 4 CALCIUM IONIZED 4.20 mg/dL Low 4.30-5.20 [facility] Comment on above: Performed By: #### L [id number] ####De Icer: MARY SOTELO ([id number])[facility] ([facility])[address] [place] [address] PH, IONIZED CALCIUM 7.29 Low 7.31-7.46 [facility] Comment on above: Performed By: #### L AB54 ####De Icer: MARY SOTELO ([id number])[facility] ([address] CARECOORDon 08-03-2024 [place] Normal [facility] CBC W Auto Differential pane l (Bld)Ordered By: Irais Carranza on 08-03-2024 Basophils (Bld) [#/Vol] 0.0 10*3/uL 0.0 - 0.2 10*3/uL [facility] Basophils/100 WBC (Bld) 0.2 % 0.0 - 2.0 % [facility] Eosinophils (Bld) [#/Vol] 0.1 10*3/uL 0.0 - 0.5 10*3/uL [facility] Eosinophils/100 WBC (Bld) 0.5 % 0.0 - 6.0 % [facility] Erythrocyte distribution width (RBC) [Ratio] 18.1 % High 11.5 - 15.0 % [facility] Hematocrit (Bld) [Volume fraction] 28.6 % Low 35.0 - 47.0 % [facility] Hemoglobin (Bld) [Mass/Vol] 8.5 g/dL Low 11.7 - 16.0 g/dL [facility] Immature granulocytes (Bld) [#/Vol] 0.1 10*3/uL High NINF - 0.1 10*3/uL [facility] Immature granulocytes/100 WBC (Bld) 1.1 % 0.0 - 2.0 % [facility] Interpretation and review of laboratory results Abnormal [facility] Lymphocytes (Bld) [#/Vol] 0.7 10*3/uL Low 1.0 - 4.3 10*3/uL [facility] Lymphocytes/100 WBC (Bld) 6.5 % Low 15.0 - 45.0 % [facility] MCH (RBC) [Entitic mass] 27.4 pg 26.0 - 34.0 pg [facility] MCHC (RBC) [Mass/Vol] 29.7 % Low 30.5 - 36.0 % [facility] MCV (RBC) [Entitic vol] 92.3 fL 77.0 - 99.0 fL [facility] Monocytes (Bld) [#/Vol] 0.3 10*3/uL 0.0 - 0.9 10*3/uL [facility] Monocytes/100 WBC (Bld) 3.0 % Low 5.0 - 13.0 % [facility] Neutrophils (Bld) [#/Vol] 9.6 10*3/uL High 1.8 - 7.5 10*3/uL [facility] Neutrophils/100 WBC (Bld) 88.7 % High 38.0 - 82.0 % [facility] Nucleated RBC/100 WBC (Bld) [Ratio] 0.0 % [facility] Platelet mean volume (Bld) [Entitic vol] 9.9 fL 9.0 - 12.7 fL [facility] Platelets (Bld) [#/Vol] 210 10*3/uL 140 - 440 10*3/uL [facility] RBC (Bld) [#/Vol] 3.10 10*6/uL Low 3.80 - 5.2 0 10*6/uL [facility] WBC (Bld) [#/Vol] 10.8 10*3/uL High 3.6 - 10.7 10*3/uL [facility] CBC WITH AUTO DIFFERENTIALon 08-03-2024 Basophils (Bld) [#/Vol] 0.0 10*3/uL Normal 0.0-0.2 [facility] Comment on above: Performed By: #### L [id number] ####De Icer: MARY SOTELO ([id number])[address] Basophils/100 WBC (Bld) 0.2 % Normal 0.0-2.0 [facility] Comment on above: Performed By: #### L [id number] ####De Icer: MARY SOTELO ([id number])[facility])[address] [place] [address] Eosinophils (Bld) [#/Vol] 0.1 10*3/uL Normal 0.0-0.5 [facility] Comment on above: Performed By: #### L [id number] ####De Icer: MARY SOTLEO ([id number])[facility])[address] [place] [address] Eosinophils/100 WBC (Bld) 0.5 % Normal 0.0-6.0 [facility] Comment on above: Performed By: #### L [id number] ####De Icer: MARY SOTELO ([id number])[facility])[address] [place] [address] Erythrocyte distribution width (RBC) [Ratio] 18.1 % High 11.5-15.0 [facility] Comment on above: Performed By: #### L [id number] ####De Icer: MARY SOTELO ([id number])[address] Hematocrit (Bld) [Volume fraction] 28.6 % Low 35.0-47.0 [facility] Comment on above: Performed By: #### L [id number] ####De Icer: MARY SOTELO ([id number])[facility])[address] [place] [address] Hemoglobin (Bld) [Mass/Vol] 8.5 g/dL Low 11.7-16.0 [facility] Comment on above: Performed By: #### L [id number] ####De Icer: MARY SOTELO ([id number])[facility])[address] [place] [address] IMMATURE GRANS % 1.1 % Normal 0.0-2.0 [facility] Comment on above: Performed By: #### L [id number] ####De Icer: MARY SOTELO ([id number])[facility])[address] [place] [address] IMMATURE GRANS ABSOLUTE 0.1 10*3/uL High <0.1 [facility] Comment on above: Performed By: #### L [id number] ####De Icer: MARY SOTELO ([id number])[facility])[address] [place] [address] Lymphocytes (Bld) [#/Vol] 0.7 10*3/uL Low 1.0-4.3 [facility] Comment on above: Performed By: #### L [id number] ####De Icer: MARY SOTELO ([id number])[facility])[address] [place] [address] Lymphocytes/100 WBC (Bld) 6.5 % Low 15.0-45.0 [facility] Comment on above: Performed By: #### L [id number] ####De Icer: MARY SOTELO ([id number])[facility])[address] [place] [address] MCH (RBC) [Entitic mass] 27.4 pg Normal 26.0-34.0 [facility] Comment on above: Performed By: #### L [id number] ####De Icer: MARY SOTELO ([id number])[facility])[address] [place] [address] MCHC 29.7 % Low 30.5-36.0 [facility] Comment on above: Performed By: #### L [id number] ####De Icer: MARY SOTELO ([id number])[facility])[address] [place] [address] MCV (RBC) [Entitic vol] 92.3 fL Normal 77.0-99.0 [facility] Comment on above: Performed By: #### L [id number] ####De Icer: MARY SOTELO ([id number])[facility])[address] [place] [address] Monocytes (Bld) [#/Vol] 0.3 10*3/uL Normal 0.0-0.9 [facility] Comment on above: Performed By: #### L [id number] ####De Icer: MARY SOTELO ([id number])[facility])[address] [place] [address] Monocytes/100 WBC (Bld) 3.0 % Low 5.0-13.0 [facility] Comment on above: Performed By: #### L [id number] ####De Icer: MARY SOTELO ([id number])[facility] [place] [address] NEUTROPHILS ABSOLUTE 9.6 10*3/uL High 1.8-7.5 [facility] Comment on above: Performed By: #### L [id number] ####De Icer: MARY SOTELO ([id number])[facility] ([facility])[address] [place] [address] Neutrophils/100 WBC (Bld) 88.7 % High 38.0-82.0 [facility] Comment on above: Performed By: #### L [id number] ####De Icer: MARY SOTELO ([id number])[facility] ([facility])[address] [place] [address] NRBC 0.0 /100 WBCs Normal 0.0-2.0 [facility] Comment on above: Performed By: #### L [id number] ####De Icer: MARY SOTELO ([id number])[facility] ([facility])[address] [place] [address] Platelet mean volume (Bld) [Entitic vol] 9.9 fL Normal 9.0-12.7 [facility] Comment on above: Performed By: #### L [id number] ####De Icer: MARY SOTELO ([id number])[facility] ([facility])[address] [place] [address] Platelets (Bld) [#/Vol] 210 10*3/uL Normal 140-440 [facility] Comment on above: Performed By: #### L [id number] ####De Icer: MARY SOTELO ([id number])[facility] ([facility])[address] [place] [address] RBC (Bld) [#/Vol] 3.10 10*6/uL Low 3.80-5.20 [facility] Comment on above: Performed By: #### L [id number] ####De Icer: MARY SOTELO ([id number])[facility] ([facility])[address] [place] [address] WBC (Bld) [#/Vol] 10.8 10*3/uL High 3.6-10.7 [facility] Comment on above: Performed By: #### L [id number] ####De Icer: MARY SOTELO ([id number])[facility] [place] [address] Calcium.ionized [Moles/Vol]o n 08-03-2024 Calcium.ionized (Bld) [Moles/Vol] 4.20 mg/dL Low 4.30 - 5.20 mg/dL [facility] Interpretation and review of laboratory results Abnormal [facility] PH, IONIZED CALCIUM 7.29 Low 7.31 - 7.46 [facility] Laboratory - Chemistry and C hemistry - challengeon 08-03-2024 Glucose [Mass/Vol] 118 mg/dL High 70 - 100 mg/dL [facility] Glucose [Mass/Vol] 93 mg/dL 70 - 100 mg/dL [facility] Glucose [Mass/Vol] 173 mg/dL High 70 - 100 mg/dL [facility] Glucose [Mass/Vol] 81 mg/dL 70 - 100 mg/dL [facility] Magnesium [Mass/Vol] 2.4 mg/dL High 1.6 - 2 .3 mg/dL [facility] Glucose [Mass/Vol] 88 mg/dL 70 - 100 mg/dL [facility] MAGNESIUMon 08-03-2024 Magnesium [Mass/Vol] 2.4 mg/dL High 1.6-2.3 [facility] Comment on above: Performed By: #### L [id number], LAB15, [id number] ####De Icer: MARY SOTELO ([id number])[facility] [place] [address] No Panel Informationon 08-03 Interpretation and review of laboratory results Abnormal [facility] Interpretation and review of laboratory results Normal [facility] Interpretation and review of laboratory results Abnormal [facility] Interpretation and review of laboratory results Normal [facility] Interpretation and review of laboratory results Abnormal [facility] Interpretation and review of laboratory results Normal [facility] Nursing Noteon 10-01-2024 Nursing Note Normal [facility] PHOSPHORUSon 08-03-2024 Phosphate [Mass/Vol] 3.4 mg/dL Normal 2.5-4.5 [facility] Comment on above: Performed By: #### L AB103, LAB15, [id number] ####De Icer: MARY SOTELO ([id number])[facility] ([facility])[address] [place] [address] [place] Phosphate [Moles/Vol]on Interpretation and review of laboratory results Normal [facility] Phosphate [Mass/Vol] 3.4 mg/dL 2.5 - 4 .5 mg/dL [facility] Progress Noteon 08-03-2024 Progress Note Normal [facility] Progress Note Normal [facility] Progress Note Normal [facility] Progress Note Normal [facility] Progress Note Normal [facility] BASIC METABOLIC PANELon 3 Anion gap [Moles/Vol] 3 mmol/L Normal 3-13 [facility] Comment on above: Performed By: #### L AB113, LAB15, [id number] ####De Icer: MARY SOTELO ([id number])[facility] ([facility])[address] [place] [address] [place] Calcium [Mass/Vol] 7.4 mg/dL Low 8.4-10.4 [facility] Comment on above: Performed By: #### L [id number], LAB15, [id number] ####De Icer: MARY SOTELO ([id number])[facility] ([facility])[address] [place] [address] [place] Chloride [Moles/Vol] 107 mmol/L Normal 98-107 [facility] Comment on above: Performed By: #### L AB113, LAB15, [id number] ####De Icer: MARY SOTELO ([id number])[facility] ([facility])[address] [place] [address] [place] CO2 [Moles/Vol] 23 mmol/L Normal 22-30 [facility] Comment on above: Performed By: #### L AB113, LAB15, [id number] ####De Icer: MARY SOTELO ([id number])[facility])[address] [place] [address] Creatinine [Mass/Vol] 1.55 mg/dL High 0.52-1.04 [facility] Comment on above: Performed By: #### L AB113, LAB15, [id number] ####De Icer: MARY SOTELO ([id number])[facility])[address] [place] [address] GLOMERULAR FILTRATION RATE ML/MIN/1.73 SQ M.PREDICTED 37.3 mL/min/1.73m*2 Low >60.0 [facility] Comment on above: Result Comment: Calc ulation based on the Chronic Kidney Disease Epidemiology Collaboration (CKD-EPI) equation refit without adjustment for race Performed By: #### L AB113, LAB15, [id number] ####De Icer: MARY SOTELO ([id number])[facility] ([facility])[address] [place] [address] Glucose [Mass/Vol] 212 mg/dL High 70-100 [facility] Comment on above: Performed By: #### L AB113, LAB15, [id number] ####De Icer: MARY SOTELO ([id number])[facility])[address] [place] [address] Potassium [Moles/Vol] 4.1 mmol/L Normal 3.5-5.1 [facility] Comment on above: Performed By: #### L AB113, LAB15, [id number] ####De Icer: MARY SOTELO ([id number])[facility])[address] [place] [address] [place] Sodium [Moles/Vol] 134 mmol/L Low 135-145 [facility] Comment on above: Performed By: #### L AB113, LAB15, [id number] ####De Icer: MARY SOTELO ([id number])[facility])[address] [place] [address] [place] Urea nitrogen [Mass/Vol] 21 mg/dL High 7-17 [facility] Comment on above: Performed By: #### L AB113, LAB15, [id number] ####De Icer: MARY SOTELO ([id number])[facility] [place] [address] Basic metabolic 1998 panelon 08-02-2024 Anion gap [Moles/Vol] 3 mmol/L 3 - 13 mmol/L [facility] Calcium [Mass/Vol] 7.4 mg/dL Low 8.4 - 10. 4 mg/dL [facility] Chloride [Moles/Vol] 107 mmol/L 98 - 10 7 mmol/L [facility] CO2 [Moles/Vol] 23 mmol/L 22 - 30 mmol/L [facility] Creatinine [Mass/Vol] 1.55 mg/dL High 0.52 - 1.04 mg/dL [facility] GFR/1.73 sq M.predicted (S/P/Bld) [Vol rate/Area] 37.3 mL/min Low - PINF [facility] Glucose [Mass/Vol] 212 mg/dL High 70 - 100 mg/dL [facility] Interpretation and review of laboratory results Abnormal [facility] Potassium [Moles/Vol] 4.1 mmol/L 3.5 - 5.1 mmol/L [facility] Sodium [Moles/Vol] 134 mmol/L Low 135 - 145 mmol/L [facility] Urea nitrogen [Mass/Vol] 21 mg/dL High 7 - 17 mg/dL [facility] CALCIUM, IONIZEDon CALCIUM IONIZED 4.30 mg/dL Normal 4.30-5.20 [facility] Comment on above: Performed By: #### L [id number] ####De Icer: MARY SOTELO ([id number])[facility] [place] [address] PH, IONIZED CALCIUM 7.36 Normal 7.31-7.46 [facility] Comment on above: Performed By: #### L [id number] ####De Icer: MARY SOTELO ([id number])[facility] ([facility])[address] [place] [address] CARECOORDon 08-02-2024 CAR[place]OORD Normal [facility] Normal [facility] CBC W Auto Differential pane l (Bld)on 08-02-2024 Basophils (Bld) [#/Vol] 0.0 10*3/uL 0.0 - 0.2 10*3/uL [facility] Basophils/100 WBC (Bld) 0.1 % 0.0 - 2.0 % [facility] Eosinophils (Bld) [#/Vol] 0.0 10*3/uL 0.0 - 0.5 10*3/uL [facility] Eosinophils/100 WBC (Bld) 0.4 % 0.0 - 6.0 % [facility] Erythrocyte distribution width (RBC) [Ratio] 17.8 % High 11.5 - 15.0 % [facility] Hematocrit (Bld) [Volume fraction] 24.7 % Low 35.0 - 47.0 % [facility] Hemoglobin (Bld) [Mass/Vol] 7.8 g/dL Low 11.7 - 16.0 g/dL [facility] Immature granulocytes (Bld) [#/Vol] 0.1 10*3/uL High NINF - 0.1 10*3/uL [facility] Immature granulocytes/100 WBC (Bld) 0.6 % 0.0 - 2.0 % [facility] Interpretation and review of laboratory results Abnormal [facility] Lymphocytes (Bld) [#/Vol] 0.4 10*3/uL Low 1.0 - 4.3 10*3/uL [facility] Lymphocytes/100 WBC (Bld) 4.5 % Low 15.0 - 45.0 % [facility] MCH (RBC) [Entitic mass] 28.4 pg 26.0 - 34.0 pg [facility] MCHC (RBC) [Mass/Vol] 31.6 % 30.5 - 36.0 % [facility] MCV (RBC) [Entitic vol] 89.8 fL 77.0 - 99.0 fL [facility] Monocytes (Bld) [#/Vol] 0.2 10*3/uL 0.0 - 0.9 10*3/uL [facility] Monocytes/100 WBC (Bld) 2.1 % Low 5.0 - 13.0 % [facility] Neutrophils (Bld) [#/Vol] 9.0 10*3/uL High 1.8 - 7.5 10*3/uL [facility] Neutrophils/100 WBC (Bld) 92.3 % High 38.0 - 82.0 % [facility] Nucleated RBC/100 WBC (Bld) [Ratio] 0.0 % [facility] Platelet mean volume (Bld) [Entitic vol] 10.4 fL 9.0 - 12.7 fL [facility] Platelets (Bld) [#/Vol] 177 10*3/uL 140 - 440 10*3/uL [facility] RBC (Bld) [#/Vol] 2.75 10*6/uL Low 3.80 - 5.2 0 10*6/uL [facility] WBC (Bld) [#/Vol] 9.8 10*3/uL 3.6 - 10.7 10*3/uL [facility] CBC WITH AUTO DIFFERENTIALon 08-02-2024 Basophils (Bld) [#/Vol] 0.0 10*3/uL Normal 0.0-0.2 [facility] Comment on above: Performed By: #### L [id number] ####De Icer: MARY SOTELO ([phone])[facility])[address] [place] [address] Basophils/100 WBC (Bld) 0.1 % Normal 0.0-2.0 [facility] Comment on above: Performed By: #### L [id number] ####De Icer: MARY SOTELO ([id number])[facility])[address] [place] [address] [place] Eosinophils (Bld) [#/Vol] 0.0 10*3/uL Normal 0.0-0.5 [facility] Comment on above: Performed By: #### L [id number] ####De Icer: MARY [id number])[facility])[address] [place] [address] [place] Eosinophils/100 WBC (Bld) 0.4 % Normal 0.0-6.0 [facility] Comment on above: Performed By: #### L [id number] ####De Icer: MARY [id number])[facility])[address] [place] [address] Erythrocyte distribution width (RBC) [Ratio] 17.8 % High 11.5-15.0 [facility] Comment on above: Performed By: #### L [id number] ####De Icer: MARY SOTELO ([id number])[facility])[address] [place] [address] Hematocrit (Bld) [Volume fraction] 24.7 % Low 35.0-47.0 [facility] Comment on above: Performed By: #### L [id number] ####De Icer: MARY SOTELO ([id number])[facility])[address] [place] [address] Hemoglobin (Bld) [Mass/Vol] 7.8 g/dL Low 11.7-16.0 [facility] Comment on above: Performed By: #### L [id number] ####De Icer: MARY SOTELO ([id number])[facility] ([facility])[address] [place] [address] IMMATURE GRANS % 0.6 % Normal 0.0-2.0 [facility] Comment on above: Performed By: #### L [id number] ####De Icer: MARY SOTELO ([id number])[facility])[address] [place] [address] IMMATURE GRANS ABSOLUTE 0.1 10*3/uL High <0.1 [facility] Comment on above: Performed By: #### L [id number] ####De Icer: MARY SOTELO ([id number])[facility])[address] [place] [address] Lymphocytes (Bld) [#/Vol] 0.4 10*3/uL Low 1.0-4.3 [facility] Comment on above: Performed By: #### L [id number] ####De Icer: MARY SOETLO ([id number])[facility])[address] [place] [address] [place] Lymphocytes/100 WBC (Bld) 4.5 % Low 15.0-45.0 [facility] Comment on above: Performed By: #### L [id number] ####De Icer: MARY SOTELO ([id number])[facility])[address] [place] [address] MCH (RBC) [Entitic mass] 28.4 pg Normal 26.0-34.0 [facility] Comment on above: Performed By: #### L [id number] ####De Icer: MARY SOTELO ([id number])[facility])[address] [place] [address] MCHC 31.6 % Normal 30.5-36.0 [facility] Comment on above: Performed By: #### L [id number] ####De Icer: MARY SOTELO ([id number])[facility])[address] [place] [address] MCV (RBC) [Entitic vol] 89.8 fL Normal 77.0-99.0 [facility] Comment on above: Performed By: #### L [id number] ####De Icer: MARY SOTELO ([id number])[facility] ([facility])[address] [place] [address] Monocytes (Bld) [#/Vol] 0.2 10*3/uL Normal 0.0-0.9 [facility] Comment on above: Performed By: #### L [id number] ####De Icer: MARY SOTELO ([id number])[facility])[address] [place] [address] Monocytes/100 WBC (Bld) 2.1 % Low 5.0-13.0 [facility] Comment on above: Performed By: #### L [id number] ####De Icer: MARY SOTELO ([id number])[facility])[address] [place] [address] NEUTROPHILS ABSOLUTE 9.0 10*3/uL High 1.8-7.5 [facility] Comment on above: Performed By: #### L [id number] ####De Icer: MARY SOTELO ([id number])[facility] ([facility])[address] [place] [address] Neutrophils/100 WBC (Bld) 92.3 % High 38.0-82.0 [facility] Comment on above: Performed By: #### L [id number] ####De Icer: MARY SOTELO ([id number])[facility] ([facility])[address] [place] [address] NRBC 0.0 /100 WBCs Normal 0.0-2.0 [facility] Comment on above: Performed By: #### L [id number] ####De Icer: MARY SOTELO ([id number])[facility] ([facility])[address] [place] [address] Platelet mean volume (Bld) [Entitic vol] 10.4 fL Normal 9.0-12.7 [facility] Comment on above: Performed By: #### L [id number] ####De Icer: MARY SOTELO ([id number])[facility] ([facility])[address] [place] [address] Platelets (Bld) [#/Vol] 177 10*3/uL Normal 140-440 [facility] Comment on above: Performed By: #### L [id number] ####De Icer: MARY SOTELO ([id number])[facility])[address] [place] [address] RBC (Bld) [#/Vol] 2.75 10*6/uL Low 3.80-5.20 [facility] Comment on above: Performed By: #### L [id number] ####De Icer: MARY SOTELO ([id number])[facility])[address] [place] [address] WBC (Bld) [#/Vol] 9.8 10*3/uL Normal 3.6-10.7 [facility] Comment on above: Performed By: #### L [id number] ####De Icer: MARY SOTELO ([id number])[facility] ([facility])[address] [place] [address] Calcium.ionized [Moles/Vol]o n 08-02-2024 Calcium.ionized (Bld) [Moles/Vol] 4.30 mg/dL 4.30 - 5.20 mg/dL [facility] Interpretation and review of laboratory results Normal [facility] PH, IONIZED CALCIUM 7.36 7.31 - 7.46 [facility] ECG 12-LEADon 08-02-2024 ECG 12-LEAD IMPRESSION: Unclear atrial rhythm - consider accelerated junctional Right bundle branch block Electronically Signed On 08-02-2024 08:53:44 EDT by Khai Duong Normal [facility] - Chemistry and C hemistry - challengeon 08-02-2024 Glucose [Mass/Vol] 211 mg/dL High 70 - 100 mg/dL [facility] Glucose [Mass/Vol] 202 mg/dL High 70 - 100 mg/dL [facility] Glucose [Mass/Vol] 180 mg/dL High 70 - 100 mg/dL [facility] Magnesium [Mass/Vol] 2.3 mg/dL 1.6 - 2 .3 mg/dL [facility] Glucose [Mass/Vol] 217 mg/dL High 70 - 100 mg/dL [facility] MAGNESIUMon 08-02-2024 Magnesium [Mass/Vol] 2.3 mg/dL Normal 1.6-2.3 [facility] Comment on above: Performed By: #### L AB113, LAB15, [id number] ####De Icer: MARY SOTELO ([id number])[facility] ([facility])[address] [place] [address] No Panel Informationon 08-02 Interpretation and review of laboratory results Abnormal [facility] Interpretation and review of laboratory results Abnormal [facility] CV EPIPHANY [facility] Interpretation and review of laboratory results Abnormal [facility] Interpretation and review of laboratory results Normal [facility] Interpretation and review of laboratory results Abnormal [facility] No Panel InformationOrdered By: Khai Duong on 08-02-2024 P Collins 0 degrees [facility] Work Phone: MS Interval 0 ms [facility] Work Phone: QRS Collins -118 degrees [facility] Work Phone: QRSD Interval 145 ms [facility] Work Phone: QT Interval 477 ms [facility] Work Phone: QTC Interval 528 ms [facility] Work Phone: T Wave Collins 36 degrees [facility] Work Phone: [facility] Work Phone: PHOSPHORUSon 08-02-2024 Phosphate [Mass/Vol] 3.0 mg/dL Normal 2.5-4.5 [facility] Comment on above: Performed By: #### L AB113, LAB15, [id number] ####De Icer: MARY SOTELO ([id number])[facility])[address] [place] [address] [place] Phosphate [Moles/Vol]on 07-06 Phosphate [Mass/Vol] 3.0 mg/dL 2.5 - 4 .5 mg/dL [facility] Progress Noteon 08-02-2024 Progress Note [...] on 08-02-2024 Heart rate 73 /min bpm [facility] Work Phone: CALCIUM, IONIZEDon CALCIUM IONIZED 4.10 mg/dL Low 4.30-5.20 [facility] Comment on above: Performed By: #### L AB54 ####De Icer: MARY SOTELO ([id number])[facility])[address] [place] [address] PH, IONIZED CALCIUM 7.38 Normal 7.31-7.46 [facility] Comment on above: Performed By: #### L AB54 ####De Icer: MARY SOTELO ([id number])[facility] ([facility])[address] [place] [address] CALCIUM IONIZED 4.30 mg/dL Normal 4.30-5.20 [facility] Comment on above: Performed By: #### L AB54 ####De Icer: MARY SOTELO ([id number])[facility] ([facility])[address] [place] [address] PH, IONIZED CALCIUM 7.32 Normal 7.31-7.46 [facility] Comment on above: Performed By: #### L AB54 ####De Icer: MARY SOTELO ([id number])[facility] ([facility])[address] [place] [address] CALCIUM IONIZED 4.50 mg/dL Normal 4.30-5.20 [facility] Comment on above: Performed By: #### L AB54 ####De Icer: MARY SOTELO ([id number])[facility] ([facility])[address] [place] [address] PH, IONIZED CALCIUM 7.31 Normal 7.31-7.46 [facility] Comment on above: Performed By: #### L AB54 ####De Icer: MARY SOTELO ([id number])[facility] ([facility])[address] [place] [address] CBC W Auto Differential pane l (Bld)on 08-01-2024 Basophils (Bld) [#/Vol] 0.0 10*3/uL 0.0 - 0.2 10*3/uL [facility] Basophils/100 WBC (Bld) 0.1 % 0.0 - 2.0 % [facility] Eosinophils (Bld) [#/Vol] 0.1 10*3/uL 0.0 - 0.5 10*3/uL [facility] Eosinophils/100 WBC (Bld) 0.7 % 0.0 - 6.0 % [facility] Erythrocyte distribution width (RBC) [Ratio] 17.1 % High 11.5 - 15.0 % [facility] Hematocrit (Bld) [Volume fraction] 25.9 % Low 35.0 - 47.0 % [facility] Hemoglobin (Bld) [Mass/Vol] 8.3 g/dL Low 11.7 - 16.0 g/dL [facility] Immature granulocytes (Bld) [#/Vol] 0.0 10*3/uL NINF - 0.1 10*3/uL [facility] Immature granulocytes/100 WBC (Bld) 0.3 % 0.0 - 2.0 % [facility] Interpretation and review of laboratory results Abnormal [facility] Lymphocytes (Bld) [#/Vol] 1.0 10*3/uL 1.0 - 4.3 10*3/uL [facility] Lymphocytes/100 WBC (Bld) 9.9 % Low 15.0 - 45.0 % [facility] MCH (RBC) [Entitic mass] 28.2 pg 26.0 - 34.0 pg [facility] MCHC (RBC) [Mass/Vol] 32.0 % 30.5 - 36.0 % [facility] MCV (RBC) [Entitic vol] 88.1 fL 77.0 - 99.0 fL [facility] Monocytes (Bld) [#/Vol] 0.5 10*3/uL 0.0 - 0.9 10*3/uL [facility] Monocytes/100 WBC (Bld) 4.9 % Low 5.0 - 13.0 % [facility] Neutrophils (Bld) [#/Vol] 8.7 10*3/uL High 1.8 - 7.5 10*3/uL [facility] Neutrophils/100 WBC (Bld) 84.1 % High 38.0 - 82.0 % [facility] Nucleated RBC/100 WBC (Bld) [Ratio] 0.0 % [facility] Platelet mean volume (Bld) [Entitic vol] 11.0 fL 9.0 - 12.7 fL [facility] Platelets (Bld) [#/Vol] 156 10*3/uL 140 - 440 10*3/uL [facility] RBC (Bld) [#/Vol] 2.94 10*6/uL Low 3.80 - 5.2 0 10*6/uL [facility] WBC (Bld) [#/Vol] 10.4 10*3/uL 3.6 - 10.7 10*3/uL [facility] CBC WITH AUTO DIFFERENTIALon 08-01-2024 Basophils (Bld) [#/Vol] 0.0 10*3/uL Normal 0.0-0.2 [facility] Comment on above: Performed By: #### L [id number] ####De Icer: MARY SOTELO ([id number])[facility])[address] [place] [address] Basophils/100 WBC (Bld) 0.1 % Normal 0.0-2.0 [facility] Comment on above: Performed By: #### L [id number] ####De Icer: MARY SOTELO ([id number])[facility])[address] [place] [address] Eosinophils (Bld) [#/Vol] 0.1 10*3/uL Normal 0.0-0.5 [facility] Comment on above: Performed By: #### L [id number] ####De Icer: MARY SOTELO ([id number])[facility])[address] [place] [address] Eosinophils/100 WBC (Bld) 0.7 % Normal 0.0-6.0 [facility] Comment on above: Performed By: #### L [id number] ####De Icer: MARY SOTELO ([id number])[facility])[address] [place] [address] Erythrocyte distribution width (RBC) [Ratio] 17.1 % High 11.5-15.0 [facility] Comment on above: Performed By: #### L [id number] ####De Icer: MARY SOTELO ([id number])[facility])[address] [place] [address] Hematocrit (Bld) [Volume fraction] 25.9 % Low 35.0-47.0 [facility] Comment on above: Performed By: #### L [id number] ####De Icer: MARY SOTELO ([id number])[facility])[address] [place] [address] Hemoglobin (Bld) [Mass/Vol] 8.3 g/dL Low 11.7-16.0 [facility] Comment on above: Performed By: #### L [id number] ####De Icer: MARY SOTELO ([id number])[facility])[address] [place] [address] IMMATURE GRANS % 0.3 % Normal 0.0-2.0 [facility] Comment on above: Performed By: #### L [id number] ####De Icer: MARY SOTELO ([id number])[facility])[address] [place] [address] IMMATURE GRANS ABSOLUTE 0.0 10*3/uL Normal <0.1 [facility] Comment on above: Performed By: #### L [id number] ####De Icer: MARY SOTELO ([id number])[address] Lymphocytes (Bld) [#/Vol] 1.0 10*3/uL Normal 1.0-4.3 [facility] Comment on above: Performed By: #### L [id number] ####De Icer: MARY SOTELO ([id number])[facility])[address] [place] [address] Lymphocytes/100 WBC (Bld) 9.9 % Low 15.0-45.0 [facility] Comment on above: Performed By: #### L [id number] ####De Icer: MARY SOTELO ([id number])[facility])[address] [place] [address] MCH (RBC) [Entitic mass] 28.2 pg Normal 26.0-34.0 [facility] Comment on above: Performed By: #### L [id number] ####De Icer: MARY SOTELO ([id number])[address] MCHC 32.0 % Normal 30.5-36.0 [facility] Comment on above: Performed By: #### L [id number] ####De Icer: MARY SOTELO ([id number])[facility] ([facility])[address] [place] [address] MCV (RBC) [Entitic vol] 88.1 fL Normal 77.0-99.0 [facility] Comment on above: Performed By: #### L [id number] ####De Icer: MARY SOTELO ([id number])[facility])[address] [place] [address] Monocytes (Bld) [#/Vol] 0.5 10*3/uL Normal 0.0-0.9 [facility] Comment on above: Performed By: #### L [id number] ####De Icer: MARY SOTELO ([id number])[facility])[address] [place] [address] Monocytes/100 WBC (Bld) 4.9 % Low 5.0-13.0 [facility] Comment on above: Performed By: #### L [id number] ####De Icer: MARY SOTELO ([id number])[facility] ([facility])[address] [place] [address] NEUTROPHILS ABSOLUTE 8.7 10*3/uL High 1.8-7.5 [facility] Comment on above: Performed By: #### L [id number] ####De Icer: MARY SOTELO ([id number])[facility])[address] [place] [address] Neutrophils/100 WBC (Bld) 84.1 % High 38.0-82.0 [facility] Comment on above: Performed By: #### L [id number] ####De Icer: MARY SOTELO ([id number])[facility] ([facility])[address] [place] [address] NRBC 0.0 /100 WBCs Normal 0.0-2.0 [facility] Comment on above: Performed By: #### L [id number] ####De Icer: MARY SOTELO ([id number])[facility] ([facility])[address] [place] [address] Platelet mean volume (Bld) [Entitic vol] 11.0 fL Normal 9.0-12.7 [facility] Comment on above: Performed By: #### L [id number] ####De Icer: MARY SOTELO ([id number])[facility] ([facility])[address] [place] [address] Platelets (Bld) [#/Vol] 156 10*3/uL Normal 140-440 [facility] Comment on above: Performed By: #### L [id number] ####De Icer: MARY SOTELO ([id number])[facility] ([facility])[address] [place] [address] RBC (Bld) [#/Vol] 2.94 10*6/uL Low 3.80-5.20 [facility] Comment on above: Performed By: #### L [id number] ####De Icer: MARY SOTELO ([id number])[facility] ([facility])[address] [place] [address] WBC (Bld) [#/Vol] 10.4 10*3/uL Normal 3.6-10.7 [facility] Comment on above: Performed By: #### L [id number] ####De Icer: MARY SOTELO ([id number])[facility] ([facility])[address] [place] [address] Calcium.ionized [Moles/Vol]o n 08-01-2024 Calcium.ionized (Bld) [Moles/Vol] 4.10 mg/dL Low 4.30 - 5.20 mg/dL [facility] Interpretation and review of laboratory results Abnormal [facility] PH, IONIZED CALCIUM 7.38 7.31 - 7.46 [facility] Calcium.ionized (Bld) [Moles/Vol] 4.30 mg/dL 4.30 - 5.20 mg/dL [facility] Interpretation and review of laboratory results Normal [facility] PH, IONIZED CALCIUM 7.32 7.31 - 7.46 [facility] Calcium.ionized (Bld) [Moles/Vol] 4.50 mg/dL 4.30 - 5.20 mg/dL [facility] Interpretation and review of laboratory results Normal [facility] PH, IONIZED CALCIUM 7.31 7.31 - 7.46 [facility] IDNon 08-01-2024 IDN Normal [facility] - Chemistry and C hemistry - challengeon 08-01-2024 Glucose [Mass/Vol] 192 mg/dL High 70 - 100 mg/dL [facility] Glucose [Mass/Vol] 170 mg/dL High 70 - 100 mg/dL [facility] Glucose [Mass/Vol] 166 mg/dL High 70 - 100 mg/dL [facility] Glucose [Mass/Vol] 120 mg/dL High 70 - 100 mg/dL [facility] Glucose [Mass/Vol] 161 mg/dL High 70 - 100 mg/dL [facility] No Panel Informationon 08-01 Interpretation and review of laboratory results Abnormal [facility] Interpretation and review of laboratory results Abnormal [facility] Interpretation and review of laboratory results Abnormal [facility] Interpretation and review of laboratory results Abnormal [facility] Interpretation and review of laboratory results Abnormal [facility] Progress Noteon 08-01-2024 Progress Note [facility] Progress Note Normal [facility] Progress Note Normal [facility] RENAL FUNCTION PANELon 08-01 Albumin [Mass/Vol] 2.1 g/dL Low 3.5-5.0 [facility] Comment on above: Performed By: #### L [id number] ####De Icer: MARY [id number])[address] Anion gap [Moles/Vol] 3 mmol/L Normal 3-13 [facility] Comment on above: Performed By: #### L AB19 ####De Icer: MARY [id number])[address] Calcium [Mass/Vol] 7.2 mg/dL Low 8.4-10.4 [facility] Comment on above: Performed By: #### L AB19 ####De Icer: MARY [id number])[facility] [place] [address] Chloride [Moles/Vol] 106 mmol/L Normal 98-107 [facility] Comment on above: Performed By: #### L AB19 ####De Icer: MARY SOTELO ([id number])[facility] [place] [address] CO2 [Moles/Vol] 23 mmol/L Normal 22-30 [facility] Comment on above: Performed By: #### L AB19 ####De Icer: MARY SOTELO ([id number])[facility] ([facility])[address] [place] [address] Creatinine [Mass/Vol] 0.87 mg/dL Normal 0.52-1.04 [facility] Comment on above: Performed By: #### L AB19 ####De Icer: MARY SOTELO ([id number])[facility] ([facility])[address] [place] [address] GLOMERULAR FILTRATION RATE ML/MIN/1.73 SQ M.PREDICTED 74.5 mL/min/1.73m*2 Normal >60.0 [facility] Comment on above: Result Comment: Calc ulation based on the Chronic Kidney Disease Epidemiology Collaboration (CKD-EPI) equation refit without adjustment for race Performed By: #### L AB19 ####De Icer: MARY SOTELO ([id number])[facility] ([facility])[address] [place] [address] [place] Glucose [Mass/Vol] 170 mg/dL High 70-100 [facility] Comment on above: Performed By: #### L AB19 ####De Icer: MARY SOTELO ([id number])[facility] ([facility])[address] [place] [address] Phosphate [Mass/Vol] 2.3 mg/dL Low 2.5-4.5 [facility] Comment on above: Performed By: #### L AB19 ####De Icer: MARY SOTELO ([id number])[facility] ([facility])[address] [place] [address] Potassium [Moles/Vol] 4.1 mmol/L Normal 3.5-5.1 [facility] Comment on above: Performed By: #### L AB19 ####De Icer: MARY SOTELO ([id number])[facility] ([facility])[address] [place] [address] Sodium [Moles/Vol] 132 mmol/L Low 135-145 [facility] Comment on above: Performed By: #### L AB19 ####De Icer: MARY SOTELO ([id number])[facility] ([facility])[address] [place] [address] Urea nitrogen [Mass/Vol] 13 mg/dL Normal 7-17 [facility] Comment on above: Performed By: #### L AB19 ####De Icer: MARY SOTELO ([id number])[facility] ([facility])[address] [place] [address] Albumin [Mass/Vol] 2.0 g/dL Low 3.5-5.0 [facility] Comment on above: Performed By: #### L AB19 ####De Icer: MARY SOTELO ([id number])[facility] ([facility])[address] [place] [address] Anion gap [Moles/Vol] 2 mmol/L Low 3-13 [facility] Comment on above: Performed By: #### L AB19 ####De Icer: MARY SOTELO ([id number])[facility] ([facility])[address] [place] [address] Calcium [Mass/Vol] 7.4 mg/dL Low 8.4-10.4 [facility] Comment on above: Performed By: #### L AB19 ####De Icer: MARY SOTELO ([id number])[facility] ([facility])[address] [place] [address] Chloride [Moles/Vol] 106 mmol/L Normal 98-107 [facility] Comment on above: Performed By: #### L AB19 ####De Icer: MARY [id number])[facility] ([facility])[address] [place] [address] CO2 [Moles/Vol] 24 mmol/L Normal 22-30 [facility] Comment on above: Performed By: #### L [id number] ####De Icer: MARY SOTELO ([id number])[facility])[address] [place] [address] Creatinine [Mass/Vol] 0.90 mg/dL Normal 0.52-1.04 [facility] Comment on above: Performed By: #### L [id number] ####De Icer: MARY SOTELO ([id number])[facility])[address] [place] [address] GLOMERULAR FILTRATION RATE ML/MIN/1.73 SQ M.PREDICTED 71.5 mL/min/1.73m*2 Normal >60.0 [facility] Comment on above: Result Comment: Calc ulation based on the Chronic Kidney Disease Epidemiology Collaboration (CKD-EPI) equation refit without adjustment for race Performed By: #### L [id number] ####De Icer: MARY SOTELO ([id number])[facility] ([facility])[address] [place] [address] Glucose [Mass/Vol] 119 mg/dL High 70-100 [facility] Comment on above: Performed By: #### L [id number] ####De Icer: MARY SOTELO ([id number])[facility])[address] [place] [address] Phosphate [Mass/Vol] 2.6 mg/dL Normal 2.5-4.5 [facility] Comment on above: Performed By: #### L [id number] ####De Icer: MARY SOTELO ([id number])[facility])[address] [place] [address] Potassium [Moles/Vol] 4.0 mmol/L Normal 3.5-5.1 [facility] Comment on above: Performed By: #### L [id number] ####De Icer: MARY SOTELO ([id number])[facility] [place] [address] Sodium [Moles/Vol] 133 mmol/L Low 135-145 [facility] Comment on above: Performed By: #### L [id number] ####De Icer: MARY SOTELO ([id number])[facility] ([facility])[address] [place] [address] Urea nitrogen [Mass/Vol] 14 mg/dL Normal 7-17 [facility] Comment on above: Performed By: #### L [id number] ####De Icer: MARY SOTELO ([id number])[facility] ([facility])[address] [place] [address] Albumin [Mass/Vol] 2.1 g/dL Low 3.5-5.0 [facility] Comment on above: Performed By: #### L [id number] ####De Icer: MARY SOTELO ([id number])[facility] ([facility])[address] [place] [address] Anion gap [Moles/Vol] 3 mmol/L Normal 3-13 [facility] Comment on above: Performed By: #### L [id number] ####De Icer: MARY SOTELO ([id number])[facility] ([facility])[address] [place] [address] Calcium [Mass/Vol] 7.8 mg/dL Low 8.4-10.4 [facility] Comment on above: Performed By: #### L [id number] ####De Icer: MARY SOTELO ([id number])[facility] ([facility])[address] [place] [address] [place] Chloride [Moles/Vol] 105 mmol/L Normal 98-107 [facility] Comment on above: Performed By: #### L [id number] ####De Icer: MARY SOTELO ([id number])[facility] ([facility])[address] [place] [address] CO2 [Moles/Vol] 25 mmol/L Normal 22-30 [facility] Comment on above: Performed By: #### L [id number] ####De Icer: MARY SOTELO ([id number])[facility])[address] [place] [address] Creatinine [Mass/Vol] 0.85 mg/dL Normal 0.52-1.04 [facility] Comment on above: Performed By: #### L [id number] ####De Icer: MARY SOTELO ([id number])[facility])[address] [place] [address] GLOMERULAR FILTRATION RATE ML/MIN/1.73 SQ M.PREDICTED 76.6 mL/min/1.73m*2 Normal >60.0 [facility] Comment on above: Result Comment: Calc ulation based on the Chronic Kidney Disease Epidemiology Collaboration (CKD-EPI) equation refit without adjustment for race Performed By: #### L [id number] ####De Icer: MARY SOTELO ([id number])[facility] ([facility])[address] [place] [address] Glucose [Mass/Vol] 161 mg/dL High 70-100 [facility] Comment on above: Performed By: #### L [id number] ####De Icer: MARY SOTELO ([id number])[facility])[address] [place] [address] Phosphate [Mass/Vol] 3.0 mg/dL Normal 2.5-4.5 [facility] Comment on above: Performed By: #### L [id number] ####De Icer: MARY SOTELO ([id number])[facility])[address] [place] [address] Potassium [Moles/Vol] 4.2 mmol/L Normal 3.5-5.1 [facility] Comment on above: Performed By: #### L [id number] ####De Icer: MARY SOTELO ([id number])[facility])[address] [place] [address] Sodium [Moles/Vol] 133 mmol/L Low 135-145 [facility] Comment on above: Performed By: #### L [id number] ####De Icer: MARY SOTELO ([id number])[facility] ([facility])[address] [place] [address] Urea nitrogen [Mass/Vol] 15 mg/dL Normal 7-17 [facility] Comment on above: Performed By: #### L [id number] ####De Icer: MARY SOTELO ([id number])[facility] [place] [address] Renal function 2000 panelon 08-01-2024 Albumin [Mass/Vol] 2.1 g/dL Low 3.5 - 5.0 g/dL [facility] Anion gap [Moles/Vol] 3 mmol/L 3 - 13 mmol/L [facility] Calcium [Mass/Vol] 7.2 mg/dL Low 8.4 - 10. 4 mg/dL [facility] Chloride [Moles/Vol] 106 mmol/L 98 - 10 7 mmol/L [facility] CO2 [Moles/Vol] 23 mmol/L 22 - 30 mmol/L [facility] Creatinine [Mass/Vol] 0.87 mg/dL 0.52 - 1.04 mg/dL [facility] GFR/1.73 sq M.predicted (S/P/Bld) [Vol rate/Area] 74.5 mL/min - PINF [facility] Glucose [Mass/Vol] 170 mg/dL High 70 - 100 mg/dL [facility] Interpretation and review of laboratory results Abnormal [facility] Phosphate [Mass/Vol] 2.3 mg/dL Low 2.5 - 4 .5 mg/dL [facility] Potassium [Moles/Vol] 4.1 mmol/L 3.5 - 5.1 mmol/L [facility] Sodium [Moles/Vol] 132 mmol/L Low 135 - 145 mmol/L [facility] Urea nitrogen [Mass/Vol] 13 mg/dL 7 - 17 mg/dL [facility] Albumin [Mass/Vol] 2.0 g/dL Low 3.5 - 5.0 g/dL [facility] Anion gap [Moles/Vol] 2 mmol/L Low 3 - 13 mmol/L [facility] Calcium [Mass/Vol] 7.4 mg/dL Low 8.4 - 10. 4 mg/dL [facility] Chloride [Moles/Vol] 106 mmol/L 98 - 10 7 mmol/L [facility] CO2 [Moles/Vol] 24 mmol/L 22 - 30 mmol/L [facility] Creatinine [Mass/Vol] 0.90 mg/dL 0.52 - 1.04 mg/dL [facility] GFR/1.73 sq M.predicted (S/P/Bld) [Vol rate/Area] 71.5 mL/min - PINF [facility] Glucose [Mass/Vol] 119 mg/dL High 70 - 100 mg/dL [facility] Interpretation and review of laboratory results Abnormal [facility] Phosphate [Mass/Vol] 2.6 mg/dL 2.5 - 4 .5 mg/dL [facility] Potassium [Moles/Vol] 4.0 mmol/L 3.5 - 5.1 mmol/L [facility] Sodium [Moles/Vol] 133 mmol/L Low 135 - 145 mmol/L [facility] Urea nitrogen [Mass/Vol] 14 mg/dL 7 - 17 mg/dL [facility] Albumin [Mass/Vol] 2.1 g/dL Low 3.5 - 5.0 g/dL [facility] Anion gap [Moles/Vol] 3 mmol/L 3 - 13 mmol/L [facility] Calcium [Mass/Vol] 7.8 mg/dL Low 8.4 - 10. 4 mg/dL [facility] Chloride [Moles/Vol] 105 mmol/L 98 - 10 7 mmol/L [facility] CO2 [Moles/Vol] 25 mmol/L 22 - 30 mmol/L [facility] Creatinine [Mass/Vol] 0.85 mg/dL 0.52 - 1.04 mg/dL [facility] GFR/1.73 sq M.predicted (S/P/Bld) [Vol rate/Area] 76.6 mL/min - PINF [facility] Glucose [Mass/Vol] 161 mg/dL High 70 - 100 mg/dL [facility] Interpretation and review of laboratory results Abnormal [facility] Phosphate [Mass/Vol] 3.0 mg/dL 2.5 - 4 .5 mg/dL [facility] Potassium [Moles/Vol] 4.2 mmol/L 3.5 - 5.1 mmol/L [facility] Sodium [Moles/Vol] 133 mmol/L Low 135 - 145 mmol/L [facility] Urea nitrogen [Mass/Vol] 15 mg/dL 7 - 17 mg/dL [facility] ABO and Rh group Confirm Nom (Bld)on 07-31-2024 ABO group Nom (Bld) O [facility] D Ag Ql (RBC) Positive [facility] BLOOD GAS ARTERIALon 024 Base excess Calc (Bld) [Moles/Vol] -0.9000 mmol/L Normal -3.0-3.0 [facility] Comment on above: Performed By: #### L [id number] ####De Icer: MARY SOTELO ([id number])[facility] ([facility])[address] [place] [address] CO2 [Moles/Vol] 26.4 mmol/L Normal 23.0-27.0 [facility] Comment on above: Performed By: #### L AB76 ####De Icer: MARY SOTELO ([id number])[facility] ([facility])[address] [place] [address] HCO3 (Bld) [Moles/Vol] 25.0 mmol/L Normal 21.0-25.0 [facility] Comment on above: Performed By: #### L AB76 ####De Icer: MARY SOTELO ([id number])[facility] ([facility])[address] [place] [address] Hemoglobin (Bld) [Mass/Vol] 7.1 g/dL Normal Screen only [facility] Comment on above: Performed By: #### L [id number] ####De Icer: MARY SOTELO ([id number])[facility] ([facility])[address] [place] [address] OXYGEN SATURATION (%) IN ARTERIAL BLOOD 98.0 % Normal 95.0-100.0 [facility] Comment on above: Performed By: #### L AB76 ####De Icer: MARY SOTELO ([id number])[facility] ([facility])[address] [place] [address] PCO2 ARTERIAL 47.9 mm Hg High >35.0-<45.0 [facility] Comment on above: Performed By: #### L AB76 ####De Icer: MARY SOTELO ([id number])[facility])[address] [place] [address] PH ARTERIAL 7.335 Low 7.350-7.450 [facility] Comment on above: Performed By: #### L AB76 ####De Icer: MARY SOTELO ([id number])[facility])[address] [place] [address] PO2 ARTERIAL 143.8 mm Hg High 80.0-100.0 [facility] Comment on above: Performed By: #### L AB76 ####De Icer: MARY SOTELO ([id number])[facility])[address] [place] [address] SOURCE OF OXYGEN Nasal cannula Normal [facility] Comment on above: Performed By: #### L AB76 ####De Icer: MARY SOTELO ([id number])[facility])[address] [place] [address] BLOOD TYPE AND SCREEN GELon 07-31-2024 ABO GROUPING O Normal [facility] Comment on above: Performed By: #### L [id number] ####De Icer: MARY SOTELO ([id number])[facility] ([facility])[address] [place] [address] RH TYPE IN BLOOD Positive Normal [facility] Comment on above: Performed By: #### L [id number] ####De Icer: MARY SOTELO ([id number])[facility] ([facility])[address] [place] [address] Blood type and Crossmatch pa eunice (Bld)on 07-31-2024 ABO group Nom (Bld) O [facility] Blood group antibody screen GEL Ql Negative [facility] D Ag Ql (RBC) [facility] CALCIUM, IONIZEDon 4 CALCIUM IONIZED 4.70 mg/dL Normal 4.30-5.20 [facility] Comment on above: Performed By: #### L AB54 ####De Icer: MARY SOTELO ([id number])[facility] [place] [address] [place] PH, IONIZED CALCIUM 7.31 Normal 7.31-7.46 [facility] Comment on above: Performed By: #### L AB54 ####De Icer: MARY SOTELO ([id number])[facility] [place] [address] [place] CALCIUM IONIZED 4.80 mg/dL Normal 4.30-5.20 [facility] Comment on above: Performed By: #### L AB54 ####De Icer: MARY SOTELO ([id number])[facility] ([facility])[address] [place] [address] [place] PH, IONIZED CALCIUM 7.36 Normal 7.31-7.46 [facility] Comment on above: Performed By: #### L AB54 ####De Icer: MARY SOTELO ([id number])[facility] ([facility])[address] [place] [address] [place] CALCIUM IONIZED 4.90 mg/dL Normal 4.30-5.20 [facility] Comment on above: Performed By: #### L AB54 ####De Icer: MARY SOTELO ([id number])[facility] ([facility])[address] [place] [address] [place] PH, IONIZED CALCIUM 7.35 Normal 7.31-7.46 [facility] Comment on above: Performed By: #### L AB54 ####De Icer: MARY SOTELO ([id number])[facility] ([facility])[address] [place] [address] [place] CALCIUM IONIZED 4.80 mg/dL Normal 4.30-5.20 [facility] Comment on above: Performed By: #### L AB54 ####De Icer: MARY SOTELO ([id number])[facility] [place] [address] [place] PH, IONIZED CALCIUM 7.38 Normal 7.31-7.46 [facility] Comment on above: Performed By: #### L AB54 ####De Icer: MARY SOTELO ([id number])[facility])[address] [place] [address] CBC (HEMOGRAM)on 07-31-2024 Erythrocyte distribution width (RBC) [Ratio] 15.2 % High 11.5-15.0 [facility] Comment on above: Performed By: #### L [id number] ####De Icer: MARY SOTELO ([id number])[facility])[address] [place] [address] Hematocrit (Bld) [Volume fraction] 21.6 % Low 35.0-47.0 [facility] Comment on above: Performed By: #### L [id number] ####De Icer: AMRY SOTELO ([id number])[address] Hemoglobin (Bld) [Mass/Vol] 6.8 g/dL Critically low 11.7-16.0 [facility] Comment on above: Performed By: #### L [id number] ####De Icer: MARY SOTELO ([id number])[address] MCH (RBC) [Entitic mass] 28.7 pg Normal 26.0-34.0 [facility] Comment on above: Performed By: #### L [id number] ####De Icer: MARY SOTELO ([id number])[address] MCHC 31.5 % Normal 30.5-36.0 [facility] Comment on above: Performed By: #### L [id number] ####De Icer: MARY SOTELO ([id number])[address] MCV (RBC) [Entitic vol] 91.1 fL Normal 77.0-99.0 [facility] Comment on above: Performed By: #### L [id number] ####De Icer: MARY [id number])[facility] ([facility])[address] [place] [address] Platelet mean volume (Bld) [Entitic vol] 10.9 fL Normal 9.0-12.7 [facility] Comment on above: Performed By: #### L [id number] ####De Icer: MARY SOTELO ([id number])[facility] ([facility])[address] [place] [address] Platelets (Bld) [#/Vol] 158 10*3/uL Normal 140-440 [facility] Comment on above: Performed By: #### L [id number] ####De Icer: MARY SOTELO ([id number])[facility] ([facility])[address] [place] [address] RBC (Bld) [#/Vol] 2.37 10*6/uL Low 3.80-5.20 [facility] Comment on above: Performed By: #### L [id number] ####De Icer: MARY SOTELO ([id number])[facility] ([facility])[address] [place] [address] WBC (Bld) [#/Vol] 15.0 10*3/uL High 3.6-10.7 [facility] Comment on above: Performed By: #### L [id number] ####De Icer: MARY SOTELO ([id number])[facility] ([facility])[address] [place] [address] CBC W Auto Differential pane l (Bld)on 07-31-2024 Basophils (Bld) [#/Vol] 0.0 10*3/uL 0.0 - 0.2 10*3/uL [facility] Basophils/100 WBC (Bld) 0.1 % 0.0 - 2.0 % [facility] Eosinophils (Bld) [#/Vol] 0.0 10*3/uL 0.0 - 0.5 10*3/uL [facility] Eosinophils/100 WBC (Bld) 0.2 % 0.0 - 6.0 % [facility] Erythrocyte distribution width (RBC) [Ratio] 15.2 % High 11.5 - 15.0 % [facility] Hematocrit (Bld) [Volume fraction] 22.3 % Low 35.0 - 47.0 % [facility] Hemoglobin (Bld) [Mass/Vol] 7.1 g/dL Low 11.7 - 16.0 g/dL [facility] Immature granulocytes (Bld) [#/Vol] 0.0 10*3/uL NINF - 0.1 10*3/uL [facility] Immature granulocytes/100 WBC (Bld) 0.3 % 0.0 - 2.0 % [facility] Interpretation and review of laboratory results Abnormal [facility] Lymphocytes (Bld) [#/Vol] 0.6 10*3/uL Low 1.0 - 4.3 10*3/uL [facility] Lymphocytes/100 WBC (Bld) 4.7 % Low 15.0 - 45.0 % [facility] MCH (RBC) [Entitic mass] 29.6 pg 26.0 - 34.0 pg [facility] MCHC (RBC) [Mass/Vol] 31.8 % 30.5 - 36.0 % [facility] MCV (RBC) [Entitic vol] 92.9 fL 77.0 - 99.0 fL [facility] Monocytes (Bld) [#/Vol] 0.6 10*3/uL 0.0 - 0.9 10*3/uL [facility] Monocytes/100 WBC (Bld) 4.4 % Low 5.0 - 13.0 % [facility] Neutrophils (Bld) [#/Vol] 12.0 10*3/uL High 1.8 - 7.5 10*3/uL [facility] Neutrophils/100 WBC (Bld) 90.3 % High 38.0 - 82.0 % [facility] Nucleated RBC/100 WBC (Bld) [Ratio] 0.0 % [facility] Platelet mean volume (Bld) [Entitic vol] 10.7 fL 9.0 - 12.7 fL [facility] Platelets (Bld) [#/Vol] 146 10*3/uL 140 - 440 10*3/uL [facility] RBC (Bld) [#/Vol] 2.40 10*6/uL Low 3.80 - 5.2 0 10*6/uL [facility] WBC (Bld) [#/Vol] 13.3 10*3/uL High 3.6 - 10.7 10*3/uL [facility] CBC W Auto Differential pane l (Bld)Ordered By: Olamide Orozco on 07-31-2024 Basophils (Bld) [#/Vol] 0.0 10*3/uL 0.0 - 0.2 10*3/uL [facility] Basophils/100 WBC (Bld) 0.1 % 0.0 - 2.0 % [facility] Eosinophils (Bld) [#/Vol] 0.0 10*3/uL 0.0 - 0.5 10*3/uL [facility] Eosinophils/100 WBC (Bld) 0.2 % 0.0 - 6.0 % [facility] Erythrocyte distribution width (RBC) [Ratio] 15.1 % High 11.5 - 15.0 % [facility] Hematocrit (Bld) [Volume fraction] 22.9 % Low 35.0 - 47.0 % [facility] Hemoglobin (Bld) [Mass/Vol] 7.2 g/dL Low 11.7 - 16.0 g/dL [facility] Immature granulocytes (Bld) [#/Vol] 0.1 10*3/uL High NINF - 0.1 10*3/uL [facility] Immature granulocytes/100 WBC (Bld) 0.4 % 0.0 - 2.0 % [facility] Interpretation and review of laboratory results Abnormal [facility] Lymphocytes (Bld) [#/Vol] 0.5 10*3/uL Low 1.0 - 4.3 10*3/uL [facility] Lymphocytes/100 WBC (Bld) 3.6 % Low 15.0 - 45.0 % [facility] MCH (RBC) [Entitic mass] 28.9 pg 26.0 - 34.0 pg [facility] MCHC (RBC) [Mass/Vol] 31.4 % 30.5 - 36.0 % [facility] MCV (RBC) [Entitic vol] 92.0 fL 77.0 - 99.0 fL [facility] Monocytes (Bld) [#/Vol] 0.3 10*3/uL 0.0 - 0.9 10*3/uL [facility] Monocytes/100 WBC (Bld) 2.0 % Low 5.0 - 13.0 % [facility] Neutrophils (Bld) [#/Vol] 13.2 10*3/uL High 1.8 - 7.5 10*3/uL [facility] Neutrophils/100 WBC (Bld) 93.7 % High 38.0 - 82.0 % [facility] Nucleated RBC/100 WBC (Bld) [Ratio] 0.0 % [facility] Platelet mean volume (Bld) [Entitic vol] 10.5 fL 9.0 - 12.7 fL [facility] Platelets (Bld) [#/Vol] 135 10*3/uL Low 140 - 440 10*3/uL [facility] RBC (Bld) [#/Vol] 2.49 10*6/uL Low 3.80 - 5.2 0 10*6/uL [facility] WBC (Bld) [#/Vol] 14.0 10*3/uL High 3.6 - 10.7 10*3/uL [facility] CBC WITH AUTO DIFFERENTIALon 07-31-2024 Basophils (Bld) [#/Vol] 0.0 10*3/uL Normal 0.0-0.2 [facility] Comment on above: Performed By: #### L [id number] ####De Icer: MARY SOTELO ([id number])[address] Basophils/100 WBC (Bld) 0.1 % Normal 0.0-2.0 [facility] Comment on above: Performed By: #### L [id number] ####De Icer: MARY SOTELO ([id number])[facility])[address] [place] [address] Eosinophils (Bld) [#/Vol] 0.0 10*3/uL Normal 0.0-0.5 [facility] Comment on above: Performed By: #### L [id number] ####De Icer: MARY SOTELO ([id number])[facility])[address] [place] [address] [place] Eosinophils/100 WBC (Bld) 0.2 % Normal 0.0-6.0 [facility] Comment on above: Performed By: #### L [id number] ####De Icer: MARY SOTELO ([id number])[facility])[address] [place] [address] Erythrocyte distribution width (RBC) [Ratio] 15.2 % High 11.5-15.0 [facility] Comment on above: Performed By: #### L [id number] ####De Icer: MARY SOTELO ([id number])[facility])[address] [place] [address] Hematocrit (Bld) [Volume fraction] 22.3 % Low 35.0-47.0 [facility] Comment on above: Performed By: #### L [id number] ####De Icer: MARY SOTELO ([phone])[address] Hemoglobin (Bld) [Mass/Vol] 7.1 g/dL Low 11.7-16.0 [facility] Comment on above: Performed By: #### L [id number] ####De Icer: MARY SOTELO ([id number])[facility])[address] [place] [address] IMMATURE GRANS % 0.3 % Normal 0.0-2.0 [facility] Comment on above: Performed By: #### L [id number] ####De Icer: MARY SOTELO ([id number])[address] IMMATURE GRANS ABSOLUTE 0.0 10*3/uL Normal <0.1 [facility] Comment on above: Performed By: #### L [id number] ####De Icer: MARY SOTELO ([id number])[facility])[address] [place] [address] Lymphocytes (Bld) [#/Vol] 0.6 10*3/uL Low 1.0-4.3 [facility] Comment on above: Performed By: #### L [id number] ####De Icer: MARY SOTELO ([id number])[facility])[address] [place] [address] Lymphocytes/100 WBC (Bld) 4.7 % Low 15.0-45.0 [facility] Comment on above: Performed By: #### L [id number] ####De Icer: MARY SOTELO ([id number])[facility])[address] [place] [address] MCH (RBC) [Entitic mass] 29.6 pg Normal 26.0-34.0 [facility] Comment on above: Performed By: #### L [id number] ####De Icer: MARY SOTELO ([id number])[facility])[address] [place] [address] MCHC 31.8 % Normal 30.5-36.0 [facility] Comment on above: Performed By: #### L [id number] ####De Icer: MARY SOTELO ([id number])[facility])[address] [place] [address] MCV (RBC) [Entitic vol] 92.9 fL Normal 77.0-99.0 [facility] Comment on above: Performed By: #### L [id number] ####De Icer: MARY SOTELO ([id number])[facility])[address] [place] [address] Monocytes (Bld) [#/Vol] 0.6 10*3/uL Normal 0.0-0.9 [facility] Comment on above: Performed By: #### L [id number] ####De Icer: MARY SOTELO ([phone])[facility])[address] [place] [address] Monocytes/100 WBC (Bld) 4.4 % Low 5.0-13.0 [facility] Comment on above: Performed By: #### L [id number] ####De Icer: MARY SOTELO ([id number])[facility])[address] [place] [address] NEUTROPHILS ABSOLUTE 12.0 10*3/uL High 1.8-7.5 [facility] Comment on above: Performed By: #### L [id number] ####De Icer: MARY SOTELO ([id number])[facility])[address] [place] [address] Neutrophils/100 WBC (Bld) 90.3 % High 38.0-82.0 [facility] Comment on above: Performed By: #### L [id number] ####De Icer: MARY SOTELO ([id number])[facility] ([facility])[address] [place] [address] NRBC 0.0 /100 WBCs Normal 0.0-2.0 [facility] Comment on above: Performed By: #### L [id number] ####De Icer: MARY SOTELO ([id number])[facility])[address] [place] [address] Platelet mean volume (Bld) [Entitic vol] 10.7 fL Normal 9.0-12.7 [facility] Comment on above: Performed By: #### L [id number] ####De Icer: MARY SOTELO ([id number])[facility] ([facility])[address] [place] [address] Platelets (Bld) [#/Vol] 146 10*3/uL Normal 140-440 [facility] Comment on above: Performed By: #### L [id number] ####De Icer: MARY SOTELO ([id number])[facility] ([facility])[address] [place] [address] RBC (Bld) [#/Vol] 2.40 10*6/uL Low 3.80-5.20 [facility] Comment on above: Performed By: #### L [id number] ####De Icer: MARY SOTELO ([id number])[facility])[address] [place] [address] WBC (Bld) [#/Vol] 13.3 10*3/uL High 3.6-10.7 [facility] Comment on above: Performed By: #### L [id number] ####De Icer: MARY SOTELO ([id number])[facility])[address] [place] [address] Basophils (Bld) [#/Vol] 0.0 10*3/uL Normal 0.0-0.2 [facility] Comment on above: Performed By: #### L [id number] ####De Icer: MARY SOTELO ([id number])[facility])[address] [place] [address] Basophils/100 WBC (Bld) 0.1 % Normal 0.0-2.0 [facility] Comment on above: Performed By: #### L [id number] ####De Icer: MARY SOTELO ([id number])[facility])[address] [place] [address] Eosinophils (Bld) [#/Vol] 0.0 10*3/uL Normal 0.0-0.5 [facility] Comment on above: Performed By: #### L [id number] ####De Icer: MARY SOTELO ([id number])[facility])[address] [place] [address] Eosinophils/100 WBC (Bld) 0.2 % Normal 0.0-6.0 [facility] Comment on above: Performed By: #### L [id number] ####De Icer: MARY SOTELO ([id number])[facility])[address] [place] [address] Erythrocyte distribution width (RBC) [Ratio] 15.1 % High 11.5-15.0 [facility] Comment on above: Performed By: #### L [id number] ####De Icer: MARY SOTELO ([id number])[facility])[address] [place] [address] Hematocrit (Bld) [Volume fraction] 22.9 % Low 35.0-47.0 [facility] Comment on above: Performed By: #### L [id number] ####De Icer: MARY [id number])[facility])[address] [place] [address] Hemoglobin (Bld) [Mass/Vol] 7.2 g/dL Low 11.7-16.0 [facility] Comment on above: Performed By: #### L [id number] ####De Icer: MARY SOTELO ([id number])[facility])[address] [place] [address] IMMATURE GRANS % 0.4 % Normal 0.0-2.0 [facility] Comment on above: Performed By: #### L [id number] ####De Icer: MARY SOTELO ([id number])[facility])[address] [place] [address] IMMATURE GRANS ABSOLUTE 0.1 10*3/uL High <0.1 [facility] Comment on above: Performed By: #### L [id number] ####De Icer: MARY SOTELO ([id number])[facility])[address] [place] [address] Lymphocytes (Bld) [#/Vol] 0.5 10*3/uL Low 1.0-4.3 [facility] Comment on above: Performed By: #### L [id number] ####De Icer: MARY SOTELO ([id number])[facility])[address] [place] [address] Lymphocytes/100 WBC (Bld) 3.6 % Low 15.0-45.0 [facility] Comment on above: Performed By: #### L [id number] ####De Icer: MARY SOTELO ([id number])[facility])[address] [place] [address] MCH (RBC) [Entitic mass] 28.9 pg Normal 26.0-34.0 [facility] Comment on above: Performed By: #### L [id number] ####De Icer: MARY SOTELO ([id number])[facility])[address] [place] [address] MCHC 31.4 % Normal 30.5-36.0 [facility] Comment on above: Performed By: #### L [id number] ####De Icer: MARY SOTELO ([id number])[facility])[address] [place] [address] MCV (RBC) [Entitic vol] 92.0 fL Normal 77.0-99.0 [facility] Comment on above: Performed By: #### L [id number] ####De Icer: MARY SOTELO ([id number])[facility] ([facility])[address] [place] [address] Monocytes (Bld) [#/Vol] 0.3 10*3/uL Normal 0.0-0.9 [facility] Comment on above: Performed By: #### L [id number] ####De Icer: MARY SOTELO ([id number])[facility])[address] [place] [address] Monocytes/100 WBC (Bld) 2.0 % Low 5.0-13.0 [facility] Comment on above: Performed By: #### L [id number] ####De Icer: MARY SOTELO ([id number])[facility])[address] [place] [address] NEUTROPHILS ABSOLUTE 13.2 10*3/uL High 1.8-7.5 [facility] Comment on above: Performed By: #### L [id number] ####De Icer: MARY SOTELO ([id number])[facility])[address] [place] [address] Neutrophils/100 WBC (Bld) 93.7 % High 38.0-82.0 [facility] Comment on above: Performed By: #### L [id number] ####De Icer: MARY SOTELO ([id number])[facility])[address] [place] [address] NRBC 0.0 /100 WBCs Normal 0.0-2.0 [facility] Comment on above: Performed By: #### L [id number] ####De Icer: MARY SOTELO ([id number])[facility])[address] [place] [address] Platelet mean volume (Bld) [Entitic vol] 10.5 fL Normal 9.0-12.7 [facility] Comment on above: Performed By: #### L [id number] ####De Icer: MARY SOTELO ([id number])[facility] ([facility])[address] [place] [address] Platelets (Bld) [#/Vol] 135 10*3/uL Low 140-440 [facility] Comment on above: Performed By: #### L [id number] ####De Icer: MARY SOTELO ([id number])[facility])[address] [place] [address] RBC (Bld) [#/Vol] 2.49 10*6/uL Low 3.80-5.20 [facility] Comment on above: Performed By: #### L [id number] ####De Icer: MARY SOTELO ([id number])[facility])[address] [place] [address] WBC (Bld) [#/Vol] 14.0 10*3/uL High 3.6-10.7 [facility] Comment on above: Performed By: #### L [id number] ####De Icer: MARY SOTELO ([id number])[facility])[address] [place] [address] CBC panel Auto (Bld)Ordered By: Akbar Warner on 07-31-2024 Erythrocyte distribution width (RBC) [Ratio] 15.2 % High 11.5 - 15.0 % [facility] Hematocrit (Bld) [Volume fraction] 21.6 % Low 35.0 - 47.0 % [facility] Hemoglobin (Bld) [Mass/Vol] 6.8 g/dL Critically low 11.7 - 16.0 g/dL [facility] Interpretation and review of laboratory results Abnormal [facility] MCH (RBC) [Entitic mass] 28.7 pg 26.0 - 34.0 pg [facility] MCHC (RBC) [Mass/Vol] 31.5 % 30.5 - 36.0 % [facility] MCV (RBC) [Entitic vol] 91.1 fL 77.0 - 99.0 fL [facility] Platelet mean volume (Bld) [Entitic vol] 10.9 fL 9.0 - 12.7 fL [facility] Platelets (Bld) [#/Vol] 158 10*3/uL 140 - 440 10*3/uL [facility] RBC (Bld) [#/Vol] 2.37 10*6/uL Low 3.80 - 5.2 0 10*6/uL [facility] WBC (Bld) [#/Vol] 15.0 10*3/uL High 3.6 - 10.7 10*3/uL [facility] Calcium.ionized [Moles/Vol]o n 07-31-2024 Calcium.ionized (Bld) [Moles/Vol] 4.70 mg/dL 4.30 - 5.20 mg/dL [facility] Interpretation and review of laboratory results Normal [facility] PH, IONIZED CALCIUM 7.31 7.31 - 7.46 [facility] Calcium.ionized (Bld) [Moles/Vol] 4.80 mg/dL 4.30 - 5.20 mg/dL [facility] Interpretation and review of laboratory results Normal [facility] PH, IONIZED CALCIUM 7.36 7.31 - 7.46 [facility] Calcium.ionized (Bld) [Moles/Vol] 4.90 mg/dL 4.30 - 5.20 mg/dL [facility] Interpretation and review of laboratory results Normal [facility] PH, IONIZED CALCIUM 7.35 7.31 - 7.46 [facility] Calcium.ionized (Bld) [Moles/Vol] 4.80 mg/dL 4.30 - 5.20 mg/dL [facility] Interpretation and review of laboratory results Normal [facility] PH, IONIZED CALCIUM 7.38 7.31 - 7.46 [facility] HEMOGLOBIN AND HEMATOCRIT, B LOODon 07-31-2024 Hematocrit (Bld) [Volume fraction] 25.4 % Low 35.0-47.0 [facility] Comment on above: Order Comment: Recom mend 1 hour post transfusion Performed By: #### L [id number] ####De Icer: MARY SOTELO ([id number])[facility] ([facility])[address] [place] [address] Hemoglobin (Bld) [Mass/Vol] 8.0 g/dL Low 11.7-16.0 [facility] Comment on above: Order Comment: Recom mend 1 hour post transfusion Performed By: #### L [id number] ####De Icer: MARY SOTELO ([id number])[facility] ([facility])[address] [place] [address] Hemoglobin (Bld) [Mass/Vol]o n 07-31-2024 Hematocrit (Bld) [Volume fraction] 25.4 % Low 35.0 - 47.0 % [facility] Interpretation and review of laboratory results Abnormal [facility] IDNon 07-31-2024 IDN Normal [facility] Laboratory - Chemistry and C hemistry - challengeon 07-31-2024 Glucose [Mass/Vol] 107 mg/dL High 70 - 100 mg/dL [facility] Glucose [Mass/Vol] 118 mg/dL High 70 - 100 mg/dL [facility] Glucose [Mass/Vol] 61 mg/dL Low 70 - 100 mg/dL [facility] Glucose [Mass/Vol] 127 mg/dL High 70 - 100 mg/dL [facility] Base excess Calc (Bld) [Moles/Vol] -0.9000 mmol/L -3.0 - 3.0 mmol/L [facility] CO2 (Bld) [Partial pressure] 47.9 mm[Hg] High - PINF [facility] CO2 [Moles/Vol] 26.4 mmol/L 23.0 - 27.0 mmol/L [facility] HCO3 (Bld) [Moles/Vol] 25.0 mmol/L 21.0 - 25.0 mmol/L [facility] Oxygen (Bld) [Partial pressure] 143.8 mm[Hg] High [facility] pH (Bld) 7.335 [pH] Low 7.350 - 7.450 [facility] Glucose [Mass/Vol] 177 mg/dL High 70 - 100 mg/dL [facility] Glucose [Mass/Vol] 237 mg/dL High 70 - 100 mg/dL [facility] Laboratory - Hematology and Cell countson 07-31-2024 Hemoglobin (Bld) [Mass/Vol] 8.0 g/dL Low 11.7 - 16.0 g/dL [facility] Hemoglobin (Bld) [Mass/Vol] 7.1 g/dL Screen only [facility] No Panel Informationon 07-31 Interpretation and review of laboratory results Abnormal [facility] Interpretation and review of laboratory results Abnormal [facility] Interpretation and review of laboratory results Abnormal [facility] Blood Expiration Date [id number] S [facility] Crossmatch interpretation COMP [facility] Dispense Status Transfused [facility] Product Blood Type 5100 [facility] PRODUCT CODE [id number] [facility] Unit ABO O [facility] Unit Number [id number] [facility] RH Positive [facility] Unit Volume 300 mL [facility] Interpretation and review of laboratory results Abnormal [facility] Interpretation and review of laboratory results Abnormal [facility] Source Of Oxygen Nasal cannula [facility] Interpretation and review of laboratory results Abnormal [facility] Interpretation and review of laboratory results Abnormal [facility] Progress Noteon 07-31-2024 Progress Note Normal [facility] Progress Note Normal [facility] Progress [facility] RENAL FUNCTION PANELon 07-31 Albumin [Mass/Vol] 1.9 g/dL Low 3.5-5.0 [facility] Comment on above: Performed By: #### L [id number] ####De Icer: MARY SOTELO ([id number])[facility] [place] [address] Anion gap [Moles/Vol] 1 mmol/L Low 3-13 [facility] Comment on above: Performed By: #### L [id number] ####De Icer: MARY SOTELO ([id number])[facility] [place] [address] Calcium [Mass/Vol] 8.2 mg/dL Low 8.4-10.4 [facility] Comment on above: Performed By: #### L [id number] ####De Icer: MARY SOTELO ([id number])[facility] ([facility])[address] [place] [address] Chloride [Moles/Vol] 104 mmol/L Normal 98-107 [facility] Comment on above: Performed By: #### L [id number] ####De Icer: MARY SOTELO ([id number])[facility] ([facility])[address] [place] [address] CO2 [Moles/Vol] 25 mmol/L Normal 22-30 [facility] Comment on above: Performed By: #### L [id number] ####De Icer: MARY SOTELO ([id number])[facility] ([facility])[address] [place] [address] Creatinine [Mass/Vol] 0.81 mg/dL Normal 0.52-1.04 [facility] Comment on above: Performed By: #### L [id number] ####De Icer: MARY SOTELO ([phone])[facility] ([facility])[address] [place] [address] [place] GLOMERULAR FILTRATION RATE ML/MIN/1.73 SQ M.PREDICTED 81.2 mL/min/1.73m*2 Normal >60.0 [facility] Comment on above: Result Comment: Calc ulation based on the Chronic Kidney Disease Epidemiology Collaboration (CKD-EPI) equation refit without adjustment for race Performed By: #### L [id number] ####De Icer: MARY SOTELO ([id number])[facility] ([facility])[address] [place] [address] [place] Glucose [Mass/Vol] 173 mg/dL High 70-100 [facility] Comment on above: Performed By: #### L [id number] ####De Icer: MARY SOTELO ([id number])[facility] ([facility])[address] [place] [address] Phosphate [Mass/Vol] 3.1 mg/dL Normal 2.5-4.5 [facility] Comment on above: Performed By: #### L [id number] ####De Icer: MARY SOTELO ([id number])[facility] ([facility])[address] [place] [address] Potassium [Moles/Vol] 3.9 mmol/L Normal 3.5-5.1 [facility] Comment on above: Performed By: #### L AB19 ####De Icer: MARY SOTELO ([id number])[facility] [place] [address] Sodium [Moles/Vol] 130 mmol/L Low 135-145 [facility] Comment on above: Performed By: #### L AB19 ####De Icer: MARY SOTELO ([id number])[facility] ([facility])[address] [place] [address] Urea nitrogen [Mass/Vol] 16 mg/dL Normal 7-17 [facility] Comment on above: Performed By: #### L AB19 ####De Icer: MARY SOTELO ([id number])[facility] ([facility])[address] [place] [address] Albumin [Mass/Vol] 1.9 g/dL Low 3.5-5.0 [facility] Comment on above: Performed By: #### L AB19 ####De Icer: MARY SOTELO ([phone])[facility] ([facility])[address] [place] [address] [place] Anion gap [Moles/Vol] 2 mmol/L Low 3-13 [facility] Comment on above: Performed By: #### L AB19 ####De Icer: MARY SOTELO ([id number])[facility] ([facility])[address] [place] [address] [place] Calcium [Mass/Vol] 8.7 mg/dL Normal 8.4-10.4 [facility] Comment on above: Performed By: #### L AB19 ####De Icer: MARY SOTELO ([id number])[facility] [place] [address] [place] Chloride [Moles/Vol] 105 mmol/L Normal 98-107 [facility] Comment on above: Performed By: #### L AB19 ####De Icer: MARY SOTELO ([phone])[facility])[address] [place] [address] CO2 [Moles/Vol] 25 mmol/L Normal 22-30 [facility] Comment on above: Performed By: #### L AB19 ####De Icer: MARY SOTELO ([id number])[facility] ([facility])[address] [place] [address] Creatinine [Mass/Vol] 0.89 mg/dL Normal 0.52-1.04 [facility] Comment on above: Performed By: #### L AB19 ####De Icer: MARY SOTELO ([id number])[facility])[address] [place] [address] GLOMERULAR FILTRATION RATE ML/MIN/1.73 SQ M.PREDICTED 72.5 mL/min/1.73m*2 Normal >60.0 [facility] Comment on above: Result Comment: Calc ulation based on the Chronic Kidney Disease Epidemiology Collaboration (CKD-EPI) equation refit without adjustment for race Performed By: #### L AB19 ####De Icer: MARY SOTELO ([id number])[facility] ([facility])[address] [place] [address] [place] Glucose [Mass/Vol] 104 mg/dL High 70-100 [facility] Comment on above: Performed By: #### L AB19 ####De Icer: MARY SOTELO ([id number])[facility] ([facility])[address] [place] [address] [place] Phosphate [Mass/Vol] 3.2 mg/dL Normal 2.5-4.5 [facility] Comment on above: Performed By: #### L AB19 ####De Icer: MARY SOTELO ([id number])[facility])[address] [place] [address] [place] Potassium [Moles/Vol] 3.7 mmol/L Normal 3.5-5.1 [facility] Comment on above: Performed By: #### L AB19 ####De Icer: MARY SOTELO ([id number])[facility] ([facility])[address] [place] [address] Sodium [Moles/Vol] 132 mmol/L Low 135-145 [facility] Comment on above: Performed By: #### L AB19 ####De Icer: MARY SOTELO ([id number])[facility] ([facility])[address] [place] [address] Urea nitrogen [Mass/Vol] 19 mg/dL High 7-17 [facility] Comment on above: Performed By: #### L AB19 ####De Icer: MARY SOTELO ([id number])[facility] ([facility])[address] [place] [address] Albumin [Mass/Vol] 2.1 g/dL Low 3.5-5.0 [facility] Comment on above: Performed By: #### L AB19 ####De Icer: MARY SOTELO ([id number])[facility] ([facility])[address] [place] [address] Anion gap [Moles/Vol] 3 mmol/L Normal 3-13 [facility] Comment on above: Performed By: #### L AB19 ####De Icer: MARY SOTELO ([id number])[facility] ([facility])[address] [place] [address] Calcium [Mass/Vol] 8.7 mg/dL Normal 8.4-10.4 [facility] Comment on above: Performed By: #### L AB19 ####De Icer: MARY SOTELO ([id number])[facility] ([facility])[address] [place] [address] [place] Chloride [Moles/Vol] 105 mmol/L Normal 98-107 [facility] Comment on above: Performed By: #### L AB19 ####De Icer: MARY SOTELO ([phone])[facility] ([facility])[address] [place] [address] [place] CO2 [Moles/Vol] 24 mmol/L Normal 22-30 [facility] Comment on above: Performed By: #### L AB19 ####De Icer: MARY SOTELO ([id number])[facility] [place], [place] [id number] [place] [address] Creatinine [Mass/Vol] 0.91 mg/dL Normal 0.52-1.04 [facility] Comment on above: Performed By: #### L AB19 ####De Icer: MARY SOTELO ([id number])[facility] [place] [address] [place] GLOMERULAR FILTRATION RATE ML/MIN/1.73 SQ M.PREDICTED 70.6 mL/min/1.73m*2 Normal >60.0 [facility] Comment on above: Result Comment: Calc ulation based on the Chronic Kidney Disease Epidemiology Collaboration (CKD-EPI) equation refit without adjustment for race Performed By: #### L AB19 ####De Icer: MARY SOTELO ([id number])[facility] [place] [id number] [place] Glucose [Mass/Vol] 161 mg/dL High 70-100 [facility] Comment on above: Performed By: #### L AB19 ####De Icer: MARY SOTELO ([id number])[facility] [facility])[address] [place] [address] [place] Phosphate [Mass/Vol] 3.8 mg/dL Normal 2.5-4.5 [facility] Comment on above: Performed By: #### L [id number] ####De Icer: MARY SOTELO ([id number])[facility] [place] [address] [place] Potassium [Moles/Vol] 4.2 mmol/L Normal 3.5-5.1 [facility] Comment on above: Performed By: #### L [id number] ####De Icer: MARY SOTELO ([id number])[facility] [place] [address] [place] Sodium [Moles/Vol] 131 mmol/L Low 135-145 [facility] Comment on above: Performed By: #### L [id number] ####De Icer: MARY SOTELO ([id number])[facility])[address] [place] [address] Urea nitrogen [Mass/Vol] 22 mg/dL High 7-17 [facility] Comment on above: Performed By: #### L [id number] ####De Icer: MARY SOTELO ([id number])[facility] ([facility])[address] [place] [address] Albumin [Mass/Vol] 2.2 g/dL Low 3.5-5.0 [facility] Comment on above: Performed By: #### L [id number] ####De Icer: MARY SOTELO ([id number])[facility] ([facility])[address] [place] [address] Anion gap [Moles/Vol] 3 mmol/L Normal 3-13 [facility] Comment on above: Performed By: #### L [id number] ####De Icer: MARY SOTELO ([id number])[facility] ([facility])[address] [place] [address] Calcium [Mass/Vol] 8.7 mg/dL Normal 8.4-10.4 [facility] Comment on above: Performed By: #### L [id number] ####De Icer: MARY SOTELO ([id number])[facility] ([facility])[address] [place] [address] [place] Chloride [Moles/Vol] 105 mmol/L Normal 98-107 [facility] Comment on above: Performed By: #### L [id number] ####De Icer: MARY SOTELO ([id number])[facility] ([facility])[address] [place] [address] CO2 [Moles/Vol] 24 mmol/L Normal 22-30 [facility] Comment on above: Performed By: #### L [id number] ####De Icer: MARY SOTELO ([id number])[facility] ([facility])[address] [place] [address] Creatinine [Mass/Vol] 0.98 mg/dL Normal 0.52-1.04 [facility] Comment on above: Performed By: #### L [id number] ####De Icer: MARY SOTELO ([id number])[facility] ([facility])[address] [place] [address] GLOMERULAR FILTRATION RATE ML/MIN/1.73 SQ M.PREDICTED 64.6 mL/min/1.73m*2 Normal >60.0 [facility] Comment on above: Result Comment: Calc ulation based on the Chronic Kidney Disease Epidemiology Collaboration (CKD-EPI) equation refit without adjustment for race Performed By: #### L [id number] ####De Icer: MARY SOTELO ([id number])[facility] ([facility])[address] [place] [address] Glucose [Mass/Vol] 229 mg/dL High 70-100 [facility] Comment on above: Performed By: #### L [id number] ####De Icer: MARY SOTELO ([id number])[facility] [place] [address] Phosphate [Mass/Vol] 4.0 mg/dL Normal 2.5-4.5 [facility] Comment on above: Performed By: #### L [id number] ####De Icer: MARY SOTELO ([id number])[facility] ([facility])[address] [place] [address] [place] Potassium [Moles/Vol] 4.5 mmol/L Normal 3.5-5.1 [facility] Comment on above: Performed By: #### L [id number] ####De Icer: MARY SOTELO ([id number])[facility] ([facility])[address] [place] [address] [place] Sodium [Moles/Vol] 132 mmol/L Low 135-145 [facility] Comment on above: Performed By: #### L [id number] ####De Icer: MARY SOTELO ([id number])[facility] ([facility])[address] [place] [address] [place] Urea nitrogen [Mass/Vol] 24 mg/dL High 7-17 [facility] Comment on above: Performed By: #### L [id number] ####De Icer: MARY SOTELO ([id number])[facility] [place] [address] Renal function 2000 panelon 07-31-2024 Albumin [Mass/Vol] 1.9 g/dL Low 3.5 - 5.0 g/dL [facility] Anion gap [Moles/Vol] 1 mmol/L Low 3 - 13 mmol/L [facility] Calcium [Mass/Vol] 8.2 mg/dL Low 8.4 - 10. 4 mg/dL [facility] Chloride [Moles/Vol] 104 mmol/L 98 - 10 7 mmol/L [facility] CO2 [Moles/Vol] 25 mmol/L 22 - 30 mmol/L [facility] Creatinine [Mass/Vol] 0.81 mg/dL 0.52 - 1.04 mg/dL [facility] GFR/1.73 sq M.predicted (S/P/Bld) [Vol rate/Area] 81.2 mL/min - PINF [facility] Glucose [Mass/Vol] 173 mg/dL High 70 - 100 mg/dL [facility] Interpretation and review of laboratory results Abnormal [facility] Phosphate [Mass/Vol] 3.1 mg/dL 2.5 - 4 .5 mg/dL [facility] Potassium [Moles/Vol] 3.9 mmol/L 3.5 - 5.1 mmol/L [facility] Sodium [Moles/Vol] 130 mmol/L Low 135 - 145 mmol/L [facility] Urea nitrogen [Mass/Vol] 16 mg/dL 7 - 17 mg/dL [facility] Albumin [Mass/Vol] 1.9 g/dL Low 3.5 - 5.0 g/dL [facility] Anion gap [Moles/Vol] 2 mmol/L Low 3 - 13 mmol/L [facility] Calcium [Mass/Vol] 8.7 mg/dL 8.4 - 10. 4 mg/dL [facility] Chloride [Moles/Vol] 105 mmol/L 98 - 10 7 mmol/L [facility] CO2 [Moles/Vol] 25 mmol/L 22 - 30 mmol/L [facility] Creatinine [Mass/Vol] 0.89 mg/dL 0.52 - 1.04 mg/dL [facility] GFR/1.73 sq M.predicted (S/P/Bld) [Vol rate/Area] 72.5 mL/min - PINF [facility] Glucose [Mass/Vol] 104 mg/dL High 70 - 100 mg/dL [facility] Interpretation and review of laboratory results Abnormal [facility] Phosphate [Mass/Vol] 3.2 mg/dL 2.5 - 4 .5 mg/dL [facility] Potassium [Moles/Vol] 3.7 mmol/L 3.5 - 5.1 mmol/L [facility] Sodium [Moles/Vol] 132 mmol/L Low 135 - 145 mmol/L [facility] Urea nitrogen [Mass/Vol] 19 mg/dL High 7 - 17 mg/dL [facility] Albumin [Mass/Vol] 2.1 g/dL Low 3.5 - 5.0 g/dL [facility] Anion gap [Moles/Vol] 3 mmol/L 3 - 13 mmol/L [facility] Calcium [Mass/Vol] 8.7 mg/dL 8.4 - 10. 4 mg/dL [facility] Chloride [Moles/Vol] 105 mmol/L 98 - 10 7 mmol/L [facility] CO2 [Moles/Vol] 24 mmol/L 22 - 30 mmol/L [facility] Creatinine [Mass/Vol] 0.91 mg/dL 0.52 - 1.04 mg/dL [facility] GFR/1.73 sq M.predicted (S/P/Bld) [Vol rate/Area] 70.6 mL/min - PINF [facility] Glucose [Mass/Vol] 161 mg/dL High 70 - 100 mg/dL [facility] Interpretation and review of laboratory results Abnormal [facility] Phosphate [Mass/Vol] 3.8 mg/dL 2.5 - 4 .5 mg/dL [facility] Potassium [Moles/Vol] 4.2 mmol/L 3.5 - 5.1 mmol/L [facility] Sodium [Moles/Vol] 131 mmol/L Low 135 - 145 mmol/L [facility] Urea nitrogen [Mass/Vol] 22 mg/dL High 7 - 17 mg/dL [facility] Albumin [Mass/Vol] 2.2 g/dL Low 3.5 - 5.0 g/dL [facility] Anion gap [Moles/Vol] 3 mmol/L 3 - 13 mmol/L [facility] Calcium [Mass/Vol] 8.7 mg/dL 8.4 - 10. 4 mg/dL [facility] Chloride [Moles/Vol] 105 mmol/L 98 - 10 7 mmol/L [facility] CO2 [Moles/Vol] 24 mmol/L 22 - 30 mmol/L [facility] Creatinine [Mass/Vol] 0.98 mg/dL 0.52 - 1.04 mg/dL [facility] GFR/1.73 sq M.predicted (S/P/Bld) [Vol rate/Area] 64.6 mL/min - PINF [facility] Glucose [Mass/Vol] 229 mg/dL High 70 - 100 mg/dL [facility] Interpretation and review of laboratory results Abnormal [facility] Phosphate [Mass/Vol] 4.0 mg/dL 2.5 - 4 .5 mg/dL [facility] Potassium [Moles/Vol] 4.5 mmol/L 3.5 - 5.1 mmol/L [facility] Sodium [Moles/Vol] 132 mmol/L Low 135 - 145 mmol/L [facility] Urea nitrogen [Mass/Vol] 24 mg/dL High 7 - 17 mg/dL [facility] BLOOD GAS ARTERIALon 024 Base excess Calc (Bld) [Moles/Vol] 1.9 mmol/L Normal -3.0-3.0 [facility] Comment on above: Performed By: #### L [id number] ####De Icer: MARY SOTELO ([id number])[facility])[address] [place] [address] CO2 [Moles/Vol] 28.3 mmol/L High 23.0-27.0 [facility] Comment on above: Performed By: #### L [id number] ####De Icer: MARY SOTELO ([id number])[facility])[address] [place] [address] HCO3 (Bld) [Moles/Vol] 26.9 mmol/L High 21.0-25.0 [facility] Comment on above: Performed By: #### L [id number] ####De Icer: MARY SOTELO ([id number])[facility] ([facility])[address] [place] [address] Hemoglobin (Bld) [Mass/Vol] 7.7 g/dL Normal Screen only [facility] Comment on above: Performed By: #### L [id number] ####De Icer: MARY SOTELO ([id number])[facility] ([facility])[address] [place] [address] OXYGEN SATURATION (%) IN ARTERIAL BLOOD 97.9 % Normal 95.0-100.0 [facility] Comment on above: Performed By: #### L [id number] ####De Icer: MARY SOTELO ([id number])[facility])[address] [place] [address] PCO2 ARTERIAL 44.6 mm Hg Normal >35.0-<45.0 [facility] Comment on above: Performed By: #### L [id number] ####De Icer: MARY SOTELO ([id number])[facility] ([facility])[address] [place] [address] PH ARTERIAL 7.399 Normal 7.350-7.450 [facility] Comment on above: Performed By: #### L [id number] ####De Icer: MARY SOTELO ([id number])[facility] ([facility])[address] [place] [address] PO2 ARTERIAL 113.8 mm Hg High 80.0-100.0 [facility] Comment on above: Performed By: #### L [id number] ####De Icer: MARY SOTELO ([id number])[facility] ([facility])[address] [place] [address] SOURCE OF OXYGEN 30% Oxygen Normal [facility] Comment on above: Result Comment: lon llator Performed By: #### L [id number] ####De Icer: MARY SOTELO ([id number])[facility] ([facility])[address] [place] [address] Base excess Calc (Bld) [Moles/Vol] 0.7 mmol/L Normal -3.0-3.0 [facility] Comment on above: Performed By: #### L [id number] ####De Icer: MARY SOTELO ([id number])[facility] ([facility])[address] [place] [address] CO2 [Moles/Vol] 27.6 mmol/L High 23.0-27.0 [facility] Comment on above: Performed By: #### L [id number] ####De Icer: MARY SOTELO ([id number])[facility] ([facility])[address] [place] [address] HCO3 (Bld) [Moles/Vol] 26.2 mmol/L High 21.0-25.0 [facility] Comment on above: Performed By: #### L [id number] ####De Icer: MARY SOTELO ([id number])[facility])[address] [place] [address] Hemoglobin (Bld) [Mass/Vol] 7.9 g/dL Normal Screen only [facility] Comment on above: Performed By: #### L [id number] ####De Icer: MARY SOTELO ([id number])[facility])[address] [place] [address] OXYGEN SATURATION (%) IN ARTERIAL BLOOD 97.2 % Normal 95.0-100.0 [facility] Comment on above: Performed By: #### L [id number] ####De Icer: MARY SOTELO ([id number])[facility] ([facility])[address] [place] [address] PCO2 ARTERIAL 46.3 mm Hg High >35.0-<45.0 [facility] Comment on above: Performed By: #### L [id number] ####De Icer: MARY SOTELO ([id number])[facility])[address] [place] [address] PH ARTERIAL 7.370 Normal 7.350-7.450 [facility] Comment on above: Performed By: #### L [id number] ####De Icer: MARY SOTELO ([id number])[facility] [place] [address] PO2 ARTERIAL 114.1 mm Hg High 80.0-100.0 [facility] Comment on above: Performed By: #### L [id number] ####De Icer: MARY SOTELO ([id number])[facility] ([facility])[address] [place] [address] SOURCE OF OXYGEN Vent Normal [facility] Comment on above: Performed By: #### L [id number] ####De Icer: MARY SOTELO ([id number])[facility] ([facility])[address] [place] [address] [place] CALCIUM, IONIZEDon 4 CALCIUM IONIZED 4.90 mg/dL Normal 4.30-5.20 [facility] Comment on above: Performed By: #### L [id number] ####De Icer: MARY SOTELO ([id number])[facility] ([facility])[address] [place] [address] PH, IONIZED CALCIUM 7.34 Normal 7.31-7.46 [facility] Comment on above: Performed By: #### L AB54 ####De Icer: MARY SOTELO ([id number])[facility] ([facility])[address] [place] [address] CALCIUM IONIZED 4.20 mg/dL Low 4.30-5.20 [facility] Comment on above: Performed By: #### L [id number] ####De Icer: MARY SOTELO ([id number])[facility] ([facility])[address] [place] [address] [place] PH, IONIZED CALCIUM 7.43 Normal 7.31-7.46 [facility] Comment on above: Performed By: #### L AB54 ####De Icer: MARY SOTELO ([id number])[facility] ([facility])[address] [place] [address] [place] CALCIUM IONIZED 4.10 mg/dL Low 4.30-5.20 [facility] Comment on above: Performed By: #### L AB54 ####De Icer: MARY SOTELO ([id number])[facility])[address] [place] [address] PH, IONIZED CALCIUM 7.42 Normal 7.31-7.46 [facility] Comment on above: Performed By: #### L AB54 ####De Icer: MARY SOTELO ([id number])[facility])[address] [place] [address] CALCIUM IONIZED 4.30 mg/dL Normal 4.30-5.20 [facility] Comment on above: Performed By: #### L AB54 ####De Icer: MARY SOTELO ([id number])[facility])[address] [place] [address] PH, IONIZED CALCIUM 7.37 Normal 7.31-7.46 [facility] Comment on above: Performed By: #### L AB54 ####De Icer: MARY SOTELO ([phone])[facility])[address] [place] [address] CARECOORDon 07-30-2024 CARECOORD Normal [facility] CBC WITH AUTO DIFFERENTIALon 07-30-2024 Basophils (Bld) [#/Vol] 0.0 10*3/uL Normal 0.0-0.2 [facility] Comment on above: Performed By: #### L [id number] ####De Icer: MARY SOTELO ([id number])[facility] ([facility])[address] [place] [address] Basophils/100 WBC (Bld) 0.0 % Normal 0.0-2.0 [facility] Comment on above: Performed By: #### L [id number] ####De Icer: MARY SOTELO ([id number])[facility])[address] [place] [address] Eosinophils (Bld) [#/Vol] 0.0 10*3/uL Normal 0.0-0.5 [facility] Comment on above: Performed By: #### L [id number] ####De Icer: MARY SOTELO ([id number])[address] Eosinophils/100 WBC (Bld) 0.0 % Normal 0.0-6.0 [facility] Comment on above: Performed By: #### L [id number] ####De Icer: MARY SOTELO ([id number])[facility])[address] [place] [address] Erythrocyte distribution width (RBC) [Ratio] 15.5 % High 11.5-15.0 [facility] Comment on above: Performed By: #### L [id number] ####De Icer: MARY SOTELO ([id number])[address] Hematocrit (Bld) [Volume fraction] 23.0 % Low 35.0-47.0 [facility] Comment on above: Performed By: #### L [id number] ####De Icer: MARY SOTELO ([id number])[address] Hemoglobin (Bld) [Mass/Vol] 7.3 g/dL Low 11.7-16.0 [facility] Comment on above: Performed By: #### L [id number] ####De Icer: MARY SOTELO ([id number])[address] IMMATURE GRANS % 0.4 % Normal 0.0-2.0 [facility] Comment on above: Performed By: #### L [id number] ####De Icer: MARY SOTELO ([id number])[address] IMMATURE GRANS ABSOLUTE 0.1 10*3/uL High <0.1 [facility] Comment on above: Performed By: #### L [id number] ####De Icer: MARY SOTLEO ([id number])[address] [place] [address] [place] Lymphocytes (Bld) [#/Vol] 0.6 10*3/uL Low 1.0-4.3 [facility] Comment on above: Performed By: #### L [id number] ####De Icer: MARY SOTELO ([id number])[facility])[address] [place] [address] Lymphocytes/100 WBC (Bld) 4.3 % Low 15.0-45.0 [facility] Comment on above: Performed By: #### L [id number] ####De Icer: MARY SOTELO ([id number])[facility])[address] [place] [address] MCH (RBC) [Entitic mass] 28.6 pg Normal 26.0-34.0 [facility] Comment on above: Performed By: #### L [id number] ####De Icer: MARY SOTELO ([id number])[facility])[address] [place] [address] MCHC 31.7 % Normal 30.5-36.0 [facility] Comment on above: Performed By: #### L [id number] ####De Icer: MARY SOTELO ([id number])[facility])[address] [place] [address] MCV (RBC) [Entitic vol] 90.2 fL Normal 77.0-99.0 [facility] Comment on above: Performed By: #### L [id number] ####De Icer: MARY SOTELO ([id number])[facility])[address] [place] [address] Monocytes (Bld) [#/Vol] 0.6 10*3/uL Normal 0.0-0.9 [facility] Comment on above: Performed By: #### L [id number] ####De Icer: MARY SOTELO ([id number])[facility])[address] [place] [address] Monocytes/100 WBC (Bld) 4.4 % Low 5.0-13.0 [facility] Comment on above: Performed By: #### L [id number] ####De Icer: MARY SOTELO ([id number])[facility] ([facility])[address] [place] [address] NEUTROPHILS ABSOLUTE 12.3 10*3/uL High 1.8-7.5 [facility] Comment on above: Performed By: #### L [id number] ####De Icer: MARY SOTELO ([id number])[facility] ([facility])[address] [place] [address] Neutrophils/100 WBC (Bld) 90.9 % High 38.0-82.0 [facility] Comment on above: Performed By: #### L [id number] ####De Icer: MARY SOTELO ([id number])[facility] ([facility])[address] [place] [address] NRBC 0.0 /100 WBCs Normal 0.0-2.0 [facility] Comment on above: Performed By: #### L [id number] ####De Icer: MARY SOTELO ([id number])[facility] ([facility])[address] [place] [address] Platelet mean volume (Bld) [Entitic vol] 10.5 fL Normal 9.0-12.7 [facility] Comment on above: Performed By: #### L [id number] ####De Icer: MARY SOTELO ([id number])[facility] ([facility])[address] [place] [address] Platelets (Bld) [#/Vol] 161 10*3/uL Normal 140-440 [facility] Comment on above: Performed By: #### L [id number] ####De Icer: MARY SOTELO ([id number])[facility] ([facility])[address] [place] [address] RBC (Bld) [#/Vol] 2.55 10*6/uL Low 3.80-5.20 [facility] Comment on above: Performed By: #### L [id number] ####De Icer: MARY SOTELO ([id number])[facility] ([facility])[address] [place] [address] WBC (Bld) [#/Vol] 13.6 10*3/uL High 3.6-10.7 [facility] Comment on above: Performed By: #### L [id number] ####De Icer: MARY SOTELO ([id number])[facility] ([facility])[address] [place] [address] IDNon 07-30-2024 IDN Normal [facility] - Chemistry and C hemistry - challengeon 07-30-2024 Glucose [Mass/Vol] 165 mg/dL High 70 - 100 mg/dL [facility] No Panel Informationon 07-30 Interpretation and review of laboratory results Abnormal [facility] Nursing Noteon 07-30-2024 Nursing Note Patient pulled out O G tube. Also pulled out ET tube a couple centimeters. . Respiratory therapist advanced ET tube. OG tube place to 55cm. Will get Xray. Restarted Fentanyl. Precedex maxed. Normal [facility] Nursing Note Patient got ahold of suction tubing on ET tube. Pulled her ET tube out a couple centimeters. Respiratory therapist notified. Normal [facility] Progress Noteon 07-30-2024 Progress Note Normal [facility] Progress Note Normal [facility] Progress Note Normal [facility] Progress Note Normal [facility] Progress Note PHYSICAL THERAPY [facility] Name/MRN: Sandy Deng ([id number]) Date: 07/30/2024 Screen Note. Pt remains intubated and sedated with orders for strict bed rest. Will continue to follow and re-attempt as able. Jennifer Saldaña, SPT Normal [facility] Progress Note Normal [facility] RENAL FUNCTION PANELon 07-30 Albumin [Mass/Vol] 2.0 g/dL Low 3.5-5.0 [facility] Comment on above: Performed By: #### L [id number] ####De Icer: MARY SOTELO ([id number])[facility] ([facility])[address] [place] [address] Anion gap [Moles/Vol] 0 mmol/L Low 3-13 [facility] Comment on above: Performed By: #### L [id number] ####De Icer: MARY SOTELO ([id number])[facility] ([facility])[address] [place] [address] Calcium [Mass/Vol] 8.7 mg/dL Normal 8.4-10.4 [facility] Comment on above: Performed By: #### L AB19 ####De Icer: MARY SOTELO ([id number])[facility] [place] [address] Chloride [Moles/Vol] 104 mmol/L Normal 98-107 [facility] Comment on above: Performed By: #### L AB19 ####De Icer: MARY SOTELO ([id number])[facility] [place] [address] CO2 [Moles/Vol] 28 mmol/L Normal 22-30 [facility] Comment on above: Performed By: #### L [id number] ####De Icer: MARY SOTELO ([id number])[facility] [place] [address] Creatinine [Mass/Vol] 0.98 mg/dL Normal 0.52-1.04 [facility] Comment on above: Performed By: #### L [id number] ####De Icer: MARY SOTELO ([id number])[facility] [place] [address] GLOMERULAR FILTRATION RATE ML/MIN/1.73 SQ M.PREDICTED 64.6 mL/min/1.73m*2 Normal >60.0 [facility] Comment on above: Result Comment: Calc ulation based on the Chronic Kidney Disease Epidemiology Collaboration (CKD-EPI) equation refit without adjustment for race Performed By: #### L [id number] ####De Icer: MARY SOTELO ([phone])[facility] ([facility])[address] [place] [address] Glucose [Mass/Vol] 114 mg/dL High 70-100 [facility] Comment on above: Performed By: #### L [id number] ####De Icer: MARY SOTELO ([id number])[facility] ([facility])[address] [place] [address] Phosphate [Mass/Vol] 3.7 mg/dL Normal 2.5-4.5 [facility] Comment on above: Performed By: #### L [id number] ####De Icer: MARY SOTELO ([id number])[facility] ([facility])[address] [place] [address] Potassium [Moles/Vol] 4.5 mmol/L Normal 3.5-5.1 [facility] Comment on above: Performed By: #### L [id number] ####De Icer: MARY SOTELO ([id number])[facility] ([facility])[address] [place] [address] Sodium [Moles/Vol] 132 mmol/L Low 135-145 [facility] Comment on above: Performed By: #### L [id number] ####De Icer: MARY SOTELO ([phone])[facility])[address] [place] [address] Urea nitrogen [Mass/Vol] 24 mg/dL High 7-17 [facility] Comment on above: Performed By: #### L [id number] ####De Icer: MARY SOTELO ([id number])[facility])[address] [place] [address] Albumin [Mass/Vol] 2.0 g/dL Low 3.5-5.0 [facility] Comment on above: Performed By: #### L [id number] ####De Icer: MARY SOTELO ([id number])[facility])[address] [place] [address] Anion gap [Moles/Vol] 1 mmol/L Low 3-13 [facility] Comment on above: Performed By: #### L [id number] ####De Icer: MARY SOTELO ([id number])[facility] [place] [address] Calcium [Mass/Vol] 7.7 mg/dL Low 8.4-10.4 [facility] Comment on above: Performed By: #### L [id number] ####De Icer: MARY SOTELO ([id number])[facility] [place] [address] Chloride [Moles/Vol] 104 mmol/L Normal 98-107 [facility] Comment on above: Performed By: #### L [id number] ####De Icer: MARY SOTELO ([id number])[facility] ([facility])[address] [place] [address] CO2 [Moles/Vol] 28 mmol/L Normal 22-30 [facility] Comment on above: Performed By: #### L [id number] ####De Icer: MARY SOTELO ([id number])[facility] ([facility])[address] [place] [address] Creatinine [Mass/Vol] 1.19 mg/dL High 0.52-1.04 [facility] Comment on above: Performed By: #### L [id number] ####De Icer: MARY SOTELO ([phone])[facility] ([facility])[address] [place] [address] GLOMERULAR FILTRATION RATE ML/MIN/1.73 SQ M.PREDICTED 51.2 mL/min/1.73m*2 Low >60.0 [facility] Comment on above: Result Comment: Calc ulation based on the Chronic Kidney Disease Epidemiology Collaboration (CKD-EPI) equation refit without adjustment for race Performed By: #### L [id number] ####De Icer: MARY SOTELO ([id number])[facility] ([facility])[address] [place] [address] Glucose [Mass/Vol] 89 mg/dL Normal 70-100 [facility] Comment on above: Performed By: #### L [id number] ####De Icer: MARY SOTELO ([phone])[facility])[address] [place] [address] Phosphate [Mass/Vol] 3.6 mg/dL Normal 2.5-4.5 [facility] Comment on above: Performed By: #### L [id number] ####De Icer: MARY SOTELO ([id number])[facility] [place] [address] Potassium [Moles/Vol] 5.0 mmol/L Normal 3.5-5.1 [facility] Comment on above: Performed By: #### L [id number] ####De Icer: MARY SOTELO ([id number])[facility] ([facility])[address] [place] [address] Sodium [Moles/Vol] 133 mmol/L Low 135-145 [facility] Comment on above: Performed By: #### L [id number] ####De Icer: MARY SOTELO ([id number])[facility] ([facility])[address] [place] [address] Urea nitrogen [Mass/Vol] 28 mg/dL High 7-17 [facility] Comment on above: Performed By: #### L [id number] ####De Icer: MARY SOTELO ([id number])[facility] ([facility])[address] [place] [address] Albumin [Mass/Vol] 2.1 g/dL Low 3.5-5.0 [facility] Comment on above: Performed By: #### L [id number] ####De Icer: MARY SOTELO ([id number])[facility])[address] [place] [address] Anion gap [Moles/Vol] 1 mmol/L Low 3-13 [facility] Comment on above: Performed By: #### L [id number] ####De Icer: MARY SOTELO ([phone])[facility])[address] [place] [address] Calcium [Mass/Vol] 7.3 mg/dL Low 8.4-10.4 [facility] Comment on above: Performed By: #### L [id number] ####De Icer: MARY SOTELO ([id number])[facility] ([facility])[address] [place] [address] Chloride [Moles/Vol] 105 mmol/L Normal 98-107 [facility] Comment on above: Performed By: #### L [id number] ####De Icer: MARY SOTELO ([phone])[facility])[address] [place] [address] [place] CO2 [Moles/Vol] 26 mmol/L Normal 22-30 [facility] Comment on above: Performed By: #### L [id number] ####De Icer: MARY SOTELO ([id number])[facility])[address] [place] [address] Creatinine [Mass/Vol] 1.37 mg/dL High 0.52-1.04 [facility] Comment on above: Performed By: #### L [id number] ####De Icer: MARY SOTELO ([id number])[facility])[address] [place] [address] GLOMERULAR FILTRATION RATE ML/MIN/1.73 SQ M.PREDICTED 43.2 mL/min/1.73m*2 Low >60.0 [facility] Comment on above: Result Comment: Calc ulation based on the Chronic Kidney Disease Epidemiology Collaboration (CKD-EPI) equation refit without adjustment for race Performed By: #### L [id number] ####De Icer: MARY SOTELO ([id number])[facility])[address] [place] [address] Glucose [Mass/Vol] 149 mg/dL High 70-100 [facility] Comment on above: Performed By: #### L [id number] ####De Icer: MARY SOTELO ([id number])[facility])[address] [place] [address] Phosphate [Mass/Vol] 4.1 mg/dL Normal 2.5-4.5 [facility] Comment on above: Performed By: #### L [id number] ####De Icer: MARY [id number])[facility] [place] [address] Potassium [Moles/Vol] 5.4 mmol/L High 3.5-5.1 [facility] Comment on above: Performed By: #### L [id number] ####De Icer: MARY SOTELO ([id number])[facility])[address] [place] [address] Sodium [Moles/Vol] 132 mmol/L Low 135-145 [facility] Comment on above: Performed By: #### L [id number] ####De Icer: MARY SOTELO ([id number])[facility] ([facility])[address] [place] [address] Urea nitrogen [Mass/Vol] 31 mg/dL High 7-17 [facility] Comment on above: Performed By: #### L AB19 ####De Icer: MARY SOTELO ([id number])[facility] ([facility])[address] [place] [address] Albumin [Mass/Vol] 2.0 g/dL Low 3.5-5.0 [facility] Comment on above: Performed By: #### L [id number] ####De Icer: MARY SOTELO ([id number])[facility] ([facility])[address] [place] [address] Anion gap [Moles/Vol] 1 mmol/L Low 3-13 [facility] Comment on above: Performed By: #### L [id number] ####De Icer: MARY SOTELO ([id number])[facility] ([facility])[address] [place] [address] Calcium [Mass/Vol] 7.6 mg/dL Low 8.4-10.4 [facility] Comment on above: Performed By: #### L [id number] ####De Icer: MARY SOTELO ([id number])[facility] [place] [address] [place] Chloride [Moles/Vol] 106 mmol/L Normal 98-107 [facility] Comment on above: Performed By: #### L [id number] ####De Icer: MARY SOTELO ([id number])[facility])[address] [place] [address] CO2 [Moles/Vol] 24 mmol/L Normal 22-30 [facility] Comment on above: Performed By: #### L [id number] ####De Icer: MARY SOTELO ([id number])[facility])[address] [place] [address] Creatinine [Mass/Vol] 1.54 mg/dL High 0.52-1.04 [facility] Comment on above: Performed By: #### L [id number] ####De Icer: MARY SOTELO ([id number])[facility])[address] [place] [address] GLOMERULAR FILTRATION RATE ML/MIN/1.73 SQ M.PREDICTED 37.5 mL/min/1.73m*2 Low >60.0 [facility] Comment on above: Result Comment: Calc ulation based on the Chronic Kidney Disease Epidemiology Collaboration (CKD-EPI) equation refit without adjustment for race Performed By: #### L [id number] ####De Icer: MARY SOTELO ([id number])[facility])[address] [place] [address] Glucose [Mass/Vol] 147 mg/dL High 70-100 [facility] Comment on above: Performed By: #### L AB19 ####De Icer: MARY SOTELO ([phone])[facility])[address] [place] [address] Phosphate [Mass/Vol] 4.2 mg/dL Normal 2.5-4.5 [facility] Comment on above: Performed By: #### L [id number] ####De Icer: MARY SOTELO ([id number])[facility])[address] [place] [address] Potassium [Moles/Vol] 5.3 mmol/L High 3.5-5.1 [facility] Comment on above: Performed By: #### L [id number] ####De Icer: MARY SOTELO ([phone])[facility] ([facility])[address] [place] [address] Sodium [Moles/Vol] 132 mmol/L Low 135-145 [facility] Comment on above: Performed By: #### L [id number] ####De Icer: MARY SOTELO ([id number])[facility] ([facility])[address] [place] [address] Urea nitrogen [Mass/Vol] 32 mg/dL High 7-17 [facility] Comment on above: Performed By: #### L [id number] ####De Icer: MARY SOTELO ([id number])[facility])[address] [place] [address] Renal function 2000 panelon 07-30-2024 Albumin [Mass/Vol] 2.0 g/dL Low 3.5 - 5.0 g/dL [facility] Anion gap [Moles/Vol] 0 mmol/L Low 3 - 13 mmol/L [facility] Calcium [Mass/Vol] 8.7 mg/dL 8.4 - 10. 4 mg/dL [facility] XR CHEST 1 VIEWon 07-30-2024 XR CHEST 1 VIEW Normal [facility] BLOOD GAS ARTERIALon 024 Base excess Calc (Bld) [Moles/Vol] 0.9 mmol/L Normal -3.0-3.0 [facility] Comment on above: Performed By: #### L [id number] ####De Icer: MARY SOTELO ([id number])[facility] ([facility])[address] [place] [address] CO2 [Moles/Vol] 26.3 mmol/L Normal 23.0-27.0 [facility] Comment on above: Performed By: #### L [id number] ####De Icer: MARY SOTELO ([id number])[facility] ([facility])[address] [place] [address] HCO3 (Bld) [Moles/Vol] 25.1 mmol/L High 21.0-25.0 [facility] Comment on above: Performed By: #### L [id number] ####De Icer: MARY SOTELO ([id number])[facility] ([facility])[address] [place] [address] Hemoglobin (Bld) [Mass/Vol] 8.3 g/dL Normal Screen only [facility] Comment on above: Performed By: #### L [id number] ####De Icer: MARY SOTELO ([id number])[facility] ([facility])[address] [place] [address] OXYGEN SATURATION (%) IN ARTERIAL BLOOD 97.1 % Normal 95.0-100.0 [facility] Comment on above: Performed By: #### L [id number] ####De Icer: MARY SOTELO ([id number])[facility] ([facility])[address] [place] [address] PCO2 ARTERIAL 37.9 mm Hg Normal >35.0-<45.0 [facility] Comment on above: Performed By: #### L [id number] ####De Icer: MARY SOTELO ([id number])[facility] ([facility])[address] [place] [address] PH ARTERIAL 7.439 Normal 7.350-7.450 [facility] Comment on above: Performed By: #### L [id number] ####De Icer: MARY SOTELO ([id number])[facility] ([facility])[address] [place] [address] PO2 ARTERIAL 96.3 mm Hg Normal 80.0-100.0 [facility] Comment on above: Performed By: #### L [id number] ####De Icer: MARY SOTELO ([id number])[facility] ([facility])[address] [place] [address] SOURCE OF OXYGEN 30% Oxygen Normal [facility] Comment on above: Result Comment: vent ilator Performed By: #### L [id number] ####De Icer: MARY SOTELO ([phone])[facility] ([facility])[address] [place] [address] Base excess Calc (Bld) [Moles/Vol] 3.5 mmol/L High -3.0-3.0 [facility] Comment on above: Performed By: #### L [id number] ####De Icer: MARY SOTELO ([id number])[facility] ([facility])[address] [place] [address] CO2 [Moles/Vol] 27.7 mmol/L High 23.0-27.0 [facility] Comment on above: Performed By: #### L [id number] ####De Icer: MARY SOTELO ([id number])[facility] ([facility])[address] [place] [address] HCO3 (Bld) [Moles/Vol] 26.7 mmol/L High 21.0-25.0 [facility] Comment on above: Performed By: #### L [id number] ####De Icer: MARY SOTELO ([phone])[facility] ([facility])[address] [place] [address] Hemoglobin (Bld) [Mass/Vol] 8.0 g/dL Normal Screen only [facility] Comment on above: Performed By: #### L [id number] ####De Icer: MARY SOTELO ([phone])[facility] ([facility])[address] [place] [address] OXYGEN SATURATION (%) IN ARTERIAL BLOOD 96.2 % Normal 95.0-100.0 [facility] Comment on above: Performed By: #### L [id number] ####De Icer: MARY SOTELO ([phone])[facility] ([facility])[address] [place] [address] PCO2 ARTERIAL 34.5 mm Hg Low >35.0-<45.0 [facility] Comment on above: Performed By: #### L [id number] ####De Icer: MARY SOTELO ([id number])[facility] ([facility])[address] [place] [address] PH ARTERIAL 7.506 High 7.350-7.450 [facility] Comment on above: Performed By: #### L [id number] ####De Icer: MARY SOTELO ([id number])[facility] ([facility])[address] [place] [address] PO2 ARTERIAL 88.9 mm Hg Normal 80.0-100.0 [facility] Comment on above: Performed By: #### L [id number] ####De Icer: MARY SOTELO ([id number])[facility] ([facility])[address] [place] [address] SOURCE OF OXYGEN 30% Oxygen Normal [facility] Comment on above: Result Comment: vent ilator Performed By: #### L [id number] ####De Icer: MARY SOTELO ([id number])[facility] ([facility])[address] [place] [address] Base excess Calc (Bld) [Moles/Vol] 1.9 mmol/L Normal -3.0-3.0 [facility] Comment on above: Performed By: #### L [id number] ####De Icer: MARY SOTELO ([id number])[facility] ([facility])[address] [place] [address] CO2 [Moles/Vol] 26.0 mmol/L Normal 23.0-27.0 [facility] Comment on above: Performed By: #### L [id number] ####De Icer: MARY SOTELO ([id number])[facility] ([facility])[address] [place] [address] HCO3 (Bld) [Moles/Vol] 25.0 mmol/L Normal 21.0-25.0 [facility] Comment on above: Performed By: #### L [id number] ####De Icer: MARY SOTELO ([phone])[facility] ([facility])[address] [place] [address] Hemoglobin (Bld) [Mass/Vol] 8.2 g/dL Normal Screen only [facility] Comment on above: Performed By: #### L [id number] ####De Icer: MARY SOTELO ([id number])[facility] ([facility])[address] [place] [address] OXYGEN SATURATION (%) IN ARTERIAL BLOOD 97.9 % Normal 95.0-100.0 [facility] Comment on above: Performed By: #### L [id number] ####De Icer: MARY SOTELO ([phone])[facility] ([facility])[address] [place] [address] PCO2 ARTERIAL 32.6 mm Hg Low >35.0-<45.0 [facility] Comment on above: Performed By: #### L [id number] ####De Icer: MARY SOTELO ([phone])[facility] ([facility])[address] [place] [address] PH ARTERIAL 7.502 High 7.350-7.450 [facility] Comment on above: Performed By: #### L [id number] ####De Icer: MARY SOTELO ([id number])[facility] ([facility])[address] [place] [address] PO2 ARTERIAL 110.0 mm Hg High 80.0-100.0 [facility] Comment on above: Performed By: #### L [id number] ####De Icer: MARY SOTELO ([id number])[facility] ([facility])[address] [place] [address] SOURCE OF OXYGEN Vent Normal [facility] Comment on above: Performed By: #### L [id number] ####De Icer: MARY SOTELO ([id number])[facility] ([facility])[address] [place] [address] CALCIUM, IONIZEDon 4 CALCIUM IONIZED 4.70 mg/dL Normal 4.30-5.20 [facility] Comment on above: Performed By: #### L [id number] ####De Icer: MARY SOTELO ([phone])[facility])[address] [place] [address] PH, IONIZED CALCIUM 7.41 Normal 7.31-7.46 [facility] Comment on above: Performed By: #### L AB54 ####De Icer: MARY [id number])[facility] ([facility])[address] [place] [address] CALCIUM IONIZED 4.30 mg/dL Normal 4.30-5.20 [facility] Comment on above: Performed By: #### L AB54 ####De Icer: MARY SOTELO ([phone])[facility])[address] [place] [address] PH, IONIZED CALCIUM 7.44 Normal 7.31-7.46 [facility] Comment on above: Performed By: #### L AB54 ####De Icer: MARY SOTELO ([phone])[facility])[address] [place] [address] CALCIUM IONIZED 4.10 mg/dL Low 4.30-5.20 [facility] Comment on above: Performed By: #### L AB54 ####De Icer: MARY SOTELO ([phone])[facility])[address] [place] [address] PH, IONIZED CALCIUM 7.51 High 7.31-7.46 [facility] Comment on above: Performed By: #### L AB54 ####De Icer: MARY SOTELO ([id number])[facility])[address] [place] [address] CBC WITH AUTO DIFFERENTIALon 07-29-2024 Basophils (Bld) [#/Vol] 0.0 10*3/uL Normal 0.0-0.2 [facility] Comment on above: Performed By: #### L [id number] ####De Icer: MARY SOTELO ([id number])[facility])[address] [place] [address] Basophils/100 WBC (Bld) 0.0 % Normal 0.0-2.0 [facility] Comment on above: Performed By: #### L [id number] ####De Icer: MARY SOTELO ([id number])[facility])[address] [place] [address] Eosinophils (Bld) [#/Vol] 0.0 10*3/uL Normal 0.0-0.5 [facility] Comment on above: Performed By: #### L [id number] ####De Icer: MARY SOTELO ([id number])[facility])[address] [place] [address] Eosinophils/100 WBC (Bld) 0.0 % Normal 0.0-6.0 [facility] Comment on above: Performed By: #### L [id number] ####De Icer: MARY SOTELO ([id number])[facility])[address] [place] [address] Erythrocyte distribution width (RBC) [Ratio] 15.2 % High 11.5-15.0 [facility] Comment on above: Performed By: #### L [id number] ####De Icer: MARY SOTELO ([id number])[address] Hematocrit (Bld) [Volume fraction] 23.1 % Low 35.0-47.0 [facility] Comment on above: Performed By: #### L [id number] ####De Icer: MARY SOTELO ([id number])[address] Hemoglobin (Bld) [Mass/Vol] 7.7 g/dL Low 11.7-16.0 [facility] Comment on above: Performed By: #### L [id number] ####De Icer: MARY SOTELO ([id number])[facility])[address] [place] [address] IMMATURE GRANS % 0.5 % Normal 0.0-2.0 [facility] Comment on above: Performed By: #### L [id number] ####De Icer: MARY SOTELO ([id number])[address] IMMATURE GRANS ABSOLUTE 0.0 10*3/uL Normal <0.1 [facility] Comment on above: Performed By: #### L [id number] ####De Icer: MARY SOTELO ([id number])[facility])[address] [place] [address] Lymphocytes (Bld) [#/Vol] 0.5 10*3/uL Low 1.0-4.3 [facility] Comment on above: Performed By: #### L [id number] ####De Icer: MARY SOTELO ([id number])[facility])[address] [place] [address] Lymphocytes/100 WBC (Bld) 6.9 % Low 15.0-45.0 [facility] Comment on above: Performed By: #### L [id number] ####De Icer: MARY SOTELO ([id number])[facility])[address] [place] [address] MCH (RBC) [Entitic mass] 28.6 pg Normal 26.0-34.0 [facility] Comment on above: Performed By: #### L [id number] ####De Icer: MARY SOTELO ([id number])[facility])[address] [place] [address] MCHC 33.3 % Normal 30.5-36.0 [facility] Comment on above: Performed By: #### L [id number] ####De Icer: MARY SOTELO ([id number])[facility])[address] [place] [address] MCV (RBC) [Entitic vol] 85.9 fL Normal 77.0-99.0 [facility] Comment on above: Performed By: #### L [id number] ####De Icer: MARY SOTELO ([id number])[facility])[address] [place] [address] Monocytes (Bld) [#/Vol] 0.4 10*3/uL Normal 0.0-0.9 [facility] Comment on above: Performed By: #### L [id number] ####De Icer: MARY SOTELO ([id number])[facility] [place] [address] Monocytes/100 WBC (Bld) 6.5 % Normal 5.0-13.0 [facility] Comment on above: Performed By: #### L [id number] ####De Icer: MARY SOTELO ([id number])[facility] ([facility])[address] [place] [address] NEUTROPHILS ABSOLUTE 5.6 10*3/uL Normal 1.8-7.5 [facility] Comment on above: Performed By: #### L [id number] ####De Icer: MARY SOTELO ([id number])[facility] ([facility])[address] [place] [address] Neutrophils/100 WBC (Bld) 86.1 % High 38.0-82.0 [facility] Comment on above: Performed By: #### L [id number] ####De Icer: MARY SOTELO ([id number])[facility] ([facility])[address] [place] [address] NRBC 0.0 /100 WBCs Normal 0.0-2.0 [facility] Comment on above: Performed By: #### L [id number] ####De Icer: MARY SOTELO ([id number])[facility] ([facility])[address] [place] [address] Platelet mean volume (Bld) [Entitic vol] 11.0 fL Normal 9.0-12.7 [facility] Comment on above: Performed By: #### L [id number] ####De Icer: MARY SOTELO ([id number])[facility] ([facility])[address] [place] [address] [place] Platelets (Bld) [#/Vol] 141 10*3/uL Normal 140-440 [facility] Comment on above: Performed By: #### L [id number] ####De Icer: MARY SOTELO ([id number])[facility] ([facility])[address] [place] [address] [place] RBC (Bld) [#/Vol] 2.69 10*6/uL Low 3.80-5.20 [facility] Comment on above: Performed By: #### L [id number] ####De Icer: MARY SOTELO ([id number])[facility])[address] [place] [address] WBC (Bld) [#/Vol] 6.5 10*3/uL Normal 3.6-10.7 [facility] Comment on above: Performed By: #### L [id number] ####De Icer: MARY SOTELO ([id number])[facility] ([facility])[address] [place] [address] CKon 07-29-2024 CK [Catalytic activity/Vol] 564 U/L High 30-170 [facility] Comment on above: Performed By: #### L AB19, LAB62 ####De Icer: MARY SOTELO ([id number])[facility] ([facility])[address] [place] [address] ECG 12-LEADon 07-29-2024 ECG 12-LEAD IMPRESSION: Sinus rhythm Multiple ventricular premature complexes Anterior infarct, old Electronically Signed On 07-29-2024 20:06:11 EDT by Eladio Valle [facility] GLUCOSE, RANDOMon 07-29-2024 Glucose [Mass/Vol] 163 mg/dL High 70-100 [facility] Comment on above: Performed By: #### L [id number] ####De Icer: MARY SOTELO ([id number])[facility] ([facility])[address] [place] [address] IDNon 07-29-2024 IDN Normal [facility] Nursing Noteon 07-29-2024 Nursing Note Patient returned fro m IR. Normal [facility] Nursing Note Normal [facility] Nursing Note To IR for tunneled v as cath. Normal [facility] Nursing Note Dr. Mahajan came by an d said EEG could be discontinued. Normal [facility] Nursing Note Called IR. Patient will get her tunneled catheter this afternoon. Normal [facility] Nursing Note Dr. Heath and gisselle palacios here. They were notified of issues with vas cath. They will talk to Renal to decide what to do. Repostion line vs cath roel vs HD? Normal [facility] Nursing Note CRRT alarming extremely negative again. Blood returned. Set disposed. Vas cath lines flushed. Normal [facility] Nursing Note CRRT alarming extremely negative pressure. Lines clamped and disconnected. Vas cath ports flushed again. CRRT restarted. Normal [facility] Nursing Note CRRT alarming extremely negative. Lines clamped. Vas cath ports flushed. Red line still pulls back easier. Will keep return line attached to red port. Normal [facility] Nursing Note CRRT alarming extremely negative. Lines clamped. Vas cath ports flushed. Red port pulls back easier. Will attach return line to red port. CRRT restarted. Normal [facility] Nursing Note Cath roel removed fro m vas cath. Both ports flush easily but neither draw back easily. CRRT started. Normal [facility] Nursing Note CRRT paused d/t acce ss line clotting at approximately [id number]. Trouble shooting attempted. Cath flow ordered and given at 0646. Normal [facility] Progress Noteon 07-29-2024 Progress Note 07/29/24 1249 Wean Screen Safety Screen Spontaneous Breathing Trial (SBT - RT) (sedation not weaned or turned off) No SBT done. Normal [facility] Progress Note Normal [facility] Progress Note Normal [facility] Progress Note OCCUPATIONAL THERAPY [facility] Name/MRN: Sandy Deng ([id number]) Date: 07/29/2024 Pt remains on strict bed rest. Will continue to follow. Jamey Muro OT Normal [facility] Progress Note Normal [facility] Progress Note Normal [facility] Progress Note Normal [facility] RENAL FUNCTION PANELon 07-29 Albumin [Mass/Vol] 2.0 g/dL Low 3.5-5.0 [facility] Comment on above: Performed By: #### L [id number] ####De Icer: MARY SOTELO ([id number])[facility] ([address] Anion gap [Moles/Vol] 2 mmol/L Low 3-13 [facility] Comment on above: Performed By: #### L [id number] ####De Icer: MARY SOTELO ([id number])[facility] ([facility])[address] [place] [address] Calcium [Mass/Vol] 8.6 mg/dL Normal 8.4-10.4 [facility] Comment on above: Performed By: #### L AB19 ####De Icer: MARY SOTELO ([id number])[facility] [place] [address] Chloride [Moles/Vol] 106 mmol/L Normal 98-107 [facility] Comment on above: Performed By: #### L AB19 ####De Icer: MARY SOTELO ([id number])[facility] ([facility])[address] [place] [address] CO2 [Moles/Vol] 26 mmol/L Normal 22-30 [facility] Comment on above: Performed By: #### L AB19 ####De Icer: MARY SOTELO ([id number])[facility] ([facility])[address] [place] [address] Creatinine [Mass/Vol] 1.94 mg/dL High 0.52-1.04 [facility] Comment on above: Performed By: #### L AB19 ####De Icer: MARY SOTELO ([id number])[facility] ([facility])[address] [place] [address] GLOMERULAR FILTRATION RATE ML/MIN/1.73 SQ M.PREDICTED 28.5 mL/min/1.73m*2 Low >60.0 [facility] Comment on above: Result Comment: Calc ulation based on the Chronic Kidney Disease Epidemiology Collaboration (CKD-EPI) equation refit without adjustment for race Performed By: #### L AB19 ####De Icer: MARY SOTELO ([id number])[facility] [place] [address] Glucose [Mass/Vol] 33 mg/dL Critically low 70-100 [facility] Comment on above: Performed By: #### L AB19 ####De Icer: MARY SOTELO ([id number])[facility] ([facility])[address] [place] [address] Phosphate [Mass/Vol] 4.4 mg/dL Normal 2.5-4.5 [facility] Comment on above: Performed By: #### L AB19 ####De Icer: MARY SOTELO ([id number])[facility] ([facility])[address] [place] [address] Potassium [Moles/Vol] 5.0 mmol/L Normal 3.5-5.1 [facility] Comment on above: Performed By: #### L AB19 ####De Icer: MARY SOTELO ([id number])[facility] ([facility])[address] [place] [address] Sodium [Moles/Vol] 133 mmol/L Low 135-145 [facility] Comment on above: Performed By: #### L AB19 ####De Icer: MARY SOTELO ([id number])[facility] ([facility])[address] [place] [address] Urea nitrogen [Mass/Vol] 41 mg/dL High 7-17 [facility] Comment on above: Performed By: #### L AB19 ####De Icer: MARY SOTELO ([id number])[facility] ([facility])[address] [place] [address] Albumin [Mass/Vol] 1.9 g/dL Low 3.5-5.0 [facility] Comment on above: Performed By: #### L AB19, LAB62 ####De Icer: MARY SOTELO ([id number])[facility] ([facility])[address] [place] [address] Anion gap [Moles/Vol] 2 mmol/L Low 3-13 [facility] Comment on above: Performed By: #### L AB19, LAB62 ####De Icer: MARY SOTELO ([id number])[facility] ([facility])[address] [place] [address] Calcium [Mass/Vol] 7.6 mg/dL Low 8.4-10.4 [facility] Comment on above: Performed By: #### L AB19, LAB62 ####De Icer: MARY SOTELO ([id number])[facility] ([facility])[address] [place] [address] [place] Chloride [Moles/Vol] 104 mmol/L Normal 98-107 [facility] Comment on above: Performed By: #### L AB19, LAB62 ####De Icer: MARY SOTELO ([id number])[facility] ([facility])[address] [place] [address] CO2 [Moles/Vol] 26 mmol/L Normal 22-30 [facility] Comment on above: Performed By: #### L AB19, LAB62 ####De Icer: MARY SOTELO ([id number])[facility] ([facility])[address] [place] [address] Creatinine [Mass/Vol] 1.59 mg/dL High 0.52-1.04 [facility] Comment on above: Performed By: #### L AB19, LAB62 ####De Icer: MARY SOTELO ([id number])[facility])[address] [place] [address] [place] GLOMERULAR FILTRATION RATE ML/MIN/1.73 SQ M.PREDICTED 36.1 mL/min/1.73m*2 Low >60.0 [facility] Comment on above: Result Comment: Calc ulation based on the Chronic Kidney Disease Epidemiology Collaboration (CKD-EPI) equation refit without adjustment for race Performed By: #### L AB19, LAB62 ####De Icer: MARY SOTELO ([id number])[facility])[address] [place] [address] Glucose [Mass/Vol] 145 mg/dL High 70-100 [facility] Comment on above: Performed By: #### L AB19, LAB62 ####De Icer: MARY [id number])[facility] [place] [address] Phosphate [Mass/Vol] 3.7 mg/dL Normal 2.5-4.5 [facility] Comment on above: Performed By: #### L AB19, LAB62 ####De Icer: MARY SOTELO ([id number])[facility] ([facility])[address] [place] [address] Potassium [Moles/Vol] 4.9 mmol/L Normal 3.5-5.1 [facility] Comment on above: Performed By: #### L AB19, LAB62 ####De Icer: MRAY SOTELO ([id number])[facility] ([facility])[address] [place] [address] Sodium [Moles/Vol] 131 mmol/L Low 135-145 [facility] Comment on above: Performed By: #### L AB19, LAB62 ####De Icer: MARY SOTELO ([id number])[facility] ([facility])[address] [place] [address] [place] Urea nitrogen [Mass/Vol] 35 mg/dL High 7-17 [facility] Comment on above: Performed By: #### L AB19, LAB62 ####De Icer: MARY SOTELO ([id number])[facility] [place] [address] [place] Albumin [Mass/Vol] 2.0 g/dL Low 3.5-5.0 [facility] Comment on above: Performed By: #### L AB19 ####De Icer: MARY SOTELO ([id number])[facility] ([facility])[address] [place] [address] [place] Anion gap [Moles/Vol] 1 mmol/L Low 3-13 [facility] Comment on above: Performed By: #### L AB19 ####De Icer: MARY SOTELO ([id number])[facility] ([facility])[address] [place] [address] [place] Calcium [Mass/Vol] 7.5 mg/dL Low 8.4-10.4 [facility] Comment on above: Performed By: #### L AB19 ####De Icer: MARY SOTELO ([id number])[facility] ([facility])[address] [place] [address] Chloride [Moles/Vol] 104 mmol/L Normal 98-107 [facility] Comment on above: Performed By: #### L AB19 ####De Icer: MARY SOTELO ([id number])[facility] ([facility])[address] [place] [address] CO2 [Moles/Vol] 25 mmol/L Normal 22-30 [facility] Comment on above: Performed By: #### L AB19 ####De Icer: MARY SOTELO ([id number])[facility] ([facility])[address] [place] [address] Creatinine [Mass/Vol] 1.32 mg/dL High 0.52-1.04 [facility] Comment on above: Performed By: #### L AB19 ####De Icer: MARY SOTELO ([id number])[facility] ([facility])[address] [place] [address] [place] GLOMERULAR FILTRATION RATE ML/MIN/1.73 SQ M.PREDICTED 45.2 mL/min/1.73m*2 Low >60.0 [facility] Comment on above: Result Comment: Calc ulation based on the Chronic Kidney Disease Epidemiology Collaboration (CKD-EPI) equation refit without adjustment for race Performed By: #### L AB19 ####De Icer: MARY SOTELO ([id number])[facility] [place] [address] [place] Glucose [Mass/Vol] 206 mg/dL High 70-100 [facility] Comment on above: Performed By: #### L AB19 ####De Icer: MARY SOTELO ([id number])[facility] [place] [address] [place] Phosphate [Mass/Vol] 3.2 mg/dL Normal 2.5-4.5 [facility] Comment on above: Performed By: #### L AB19 ####De Icer: MARY SOTELO ([id number])[facility])[address] [place] [address] Potassium [Moles/Vol] 5.2 mmol/L High 3.5-5.1 [facility] Comment on above: Performed By: #### L AB19 ####De Icer: MARY SOTELO ([id number])[facility])[address] [place] [address] Sodium [Moles/Vol] 131 mmol/L Low 135-145 [facility] Comment on above: Performed By: #### L AB19 ####De Icer: MARY SOTELO ([id number])[facility])[address] [place] [address] Urea nitrogen [Mass/Vol] 28 mg/dL High 7-17 [facility] Comment on above: Performed By: #### L AB19 ####De Icer: MARY SOTELO ([id number])[facility] ([facility])[address] [place] [address] Respiratory Cultureon 2023 RESPC Normal [facility] Comment on above: Performed By: #### M 100.2400, M100.2000 ####[facility] [id number] [place], [address] XR CHEST 1 VIEWon 07-29-2024 XR CHEST 1 VIEW Normal [facility] BASIC METABOLIC PANELon 07-05 Anion gap [Moles/Vol] 4 mmol/L Normal 3-13 [facility] Comment on above: Performed By: #### L AB103, [id number], LAB15 ####De Icer: MARY SOTELO ([id number])[facility])[address] [place] [address] Calcium [Mass/Vol] 7.4 mg/dL Low 8.4-10.4 [facility] Comment on above: Performed By: #### L AB103, [id number], LAB15 ####De Icer: MARY SOTELO ([id number])[facility] [place] [address] [place] Chloride [Moles/Vol] 104 mmol/L Normal 98-107 [facility] Comment on above: Performed By: #### L AB103, ZSZ101, LAB15 ####De Icer: MARY SOTELO ([id number])[facility] [place] [address] [place] CO2 [Moles/Vol] 23 mmol/L Normal 22-30 [facility] Comment on above: Performed By: #### Dora AB103, [id number], LAB15 ####De Icer: MARY SOTELO ([id number])[facility] ([facility])[address] [place] [address] Creatinine [Mass/Vol] 1.80 mg/dL High 0.52-1.04 [facility] Comment on above: Performed By: #### Dora AB103, [id number], LAB15 ####De Icer: MARY SOTELO ([id number])[facility] ([facility])[address] [place] [address] [place] GLOMERULAR FILTRATION RATE ML/MIN/1.73 SQ M.PREDICTED 31.1 mL/min/1.73m*2 Low >60.0 [facility] Comment on above: Result Comment: Calc ulation based on the Chronic Kidney Disease Epidemiology Collaboration (CKD-EPI) equation refit without adjustment for race Performed By: #### Dora AB103, PVZ765, LAB15 ####De Icer: MARY SOTELO ([id number])[facility] [place] [address] [place] Glucose [Mass/Vol] 143 mg/dL High 70-100 [facility] Comment on above: Performed By: #### L AB103, [id number], LAB15 ####De Icer: MARY SOTELO ([id number])[facility] [place] [address] [place] Potassium [Moles/Vol] 4.5 mmol/L Normal 3.5-5.1 [facility] Comment on above: Performed By: #### L AB103, [id number], LAB15 ####De Icer: MARY SOTELO ([id number])[facility])[address] [place] [address] Sodium [Moles/Vol] 131 mmol/L Low 135-145 [facility] Comment on above: Performed By: #### L AB103, [id number], LAB15 ####De Icer: MARY SOTELO ([id number])[facility] ([facility])[address] [place] [address] Urea nitrogen [Mass/Vol] 34 mg/dL High 7-17 [facility] Comment on above: Performed By: #### L AB103, [id number], LAB15 ####De Icer: MARY SOTELO ([id number])[facility] ([facility])[address] [place] [address] BLOOD GAS ARTERIALon 024 Base excess Calc (Bld) [Moles/Vol] -1.2000 mmol/L Normal -3.0-3.0 [facility] Comment on above: Performed By: #### L AB76 ####De Icer: MARY SOTELO ([id number])[facility] ([facility])[address] [place] [address] CO2 [Moles/Vol] 24.6 mmol/L Normal 23.0-27.0 [facility] Comment on above: Performed By: #### L AB76 ####De Icer: MARY SOTELO ([id number])[facility] ([facility])[address] [place] [address] [place] HCO3 (Bld) [Moles/Vol] 23.4 mmol/L Normal 21.0-25.0 [facility] Comment on above: Performed By: #### L AB76 ####De Icer: MARY SOTELO ([id number])[facility])[address] [place] [address] Hemoglobin (Bld) [Mass/Vol] 9.2 g/dL Normal Screen only [facility] Comment on above: Performed By: #### L AB76 ####De Icer: MARY SOTELO ([id number])[facility] ([facility])[address] [place] [address] OXYGEN SATURATION (%) IN ARTERIAL BLOOD 98.1 % Normal 95.0-100.0 [facility] Comment on above: Performed By: #### L AB76 ####De Icer: MARY SOTELO ([id number])[facility] ([facility])[address] [place] [address] PCO2 ARTERIAL 38.6 mm Hg Normal >35.0-<45.0 [facility] Comment on above: Performed By: #### L AB76 ####De Icer: MARY SOTELO ([id number])[facility] ([facility])[address] [place] [address] PH ARTERIAL 7.401 Normal 7.350-7.450 [facility] Comment on above: Performed By: #### L AB76 ####De Icer: MARY SOTELO ([id number])[facility] ([facility])[address] [place] [address] PO2 ARTERIAL 120.0 mm Hg High 80.0-100.0 [facility] Comment on above: Performed By: #### L AB76 ####De Icer: MARY SOTELO ([id number])[facility] ([facility])[address] [place] [address] SOURCE OF OXYGEN Vent Normal [facility] Comment on above: Performed By: #### L AB76 ####De Icer: MARY SOTELO ([id number])[facility] ([facility])[address] [place] [address] [place] CALCIUM, IONIZEDon 4 CALCIUM IONIZED 4.10 mg/dL Low 4.30-5.20 [facility] Comment on above: Performed By: #### L AB54 ####De Icer: MARY SOTELO ([id number])[facility] ([facility])[address] [place] [address] [place] PH, IONIZED CALCIUM 7.52 High 7.31-7.46 [facility] Comment on above: Performed By: #### L AB54 ####De Icer: MARY SOTELO ([id number])[facility])[address] [place] [address] [place] CALCIUM IONIZED 4.30 mg/dL Normal 4.30-5.20 [facility] Comment on above: Performed By: #### L AB54 ####De Icer: MARY SOTELO ([id number])[facility] ([facility])[address] [place] [address] [place] PH, IONIZED CALCIUM 7.46 Normal 7.31-7.46 [facility] Comment on above: Performed By: #### L AB54 ####De Icer: MARY SOTELO ([id number])[facility])[address] [place] [address] [place] CALCIUM IONIZED 4.20 mg/dL Low 4.30-5.20 [facility] Comment on above: Performed By: #### L AB54 ####De Icer: MARY SOTELO ([id number])[facility] ([facility])[address] [place] [address] [place] PH, IONIZED CALCIUM 7.38 Normal 7.31-7.46 [facility] Comment on above: Performed By: #### L AB54 ####De Icer: MARY SOTELO ([id number])[facility] ([facility])[address] [place] [address] [place] CALCIUM IONIZED 4.10 mg/dL Low 4.30-5.20 [facility] Comment on above: Performed By: #### L AB54 ####De Icer: MARY SOTELO ([id number])[facility])[address] [place] [address] [place] PH, IONIZED CALCIUM 7.44 Normal 7.31-7.46 [facility] Comment on above: Performed By: #### L AB54 ####De Icer: MARY SOTELO ([id number])[facility])[address] [place] [address] CARECOORDon 07-28-2024 CARECOORD Normal [facility] CBC WITH AUTO DIFFERENTIALon 07-28-2024 Basophils (Bld) [#/Vol] 0.0 10*3/uL Normal 0.0-0.2 [facility] Comment on above: Performed By: #### L [id number] ####De Icer: MARY SOTELO ([id number])[facility])[address] [place] [address] Basophils/100 WBC (Bld) 0.1 % Normal 0.0-2.0 [facility] Comment on above: Performed By: #### L [id number] ####De Icer: MARY SOTELO ([id number])[address] Eosinophils (Bld) [#/Vol] 0.0 10*3/uL Normal 0.0-0.5 [facility] Comment on above: Performed By: #### L [id number] ####De Icer: MARY SOTELO ([id number])[address] Eosinophils/100 WBC (Bld) 0.0 % Normal 0.0-6.0 [facility] Comment on above: Performed By: #### L [id number] ####De Icer: MARY SOTELO ([id number])[address] Erythrocyte distribution width (RBC) [Ratio] 15.0 % Normal 11.5-15.0 [facility] Comment on above: Performed By: #### L [id number] ####De Icer: MARY [id number])[address] Hematocrit (Bld) [Volume fraction] 25.8 % Low 35.0-47.0 [facility] Comment on above: Performed By: #### L [id number] ####De Icer: MARY [id number])[facility])[address] [place] [address] Hemoglobin (Bld) [Mass/Vol] 8.8 g/dL Low 11.7-16.0 [facility] Comment on above: Performed By: #### L [id number] ####De Icer: MARY SOTELO ([id number])[facility])[address] [place] [address] IMMATURE GRANS % 0.4 % Normal 0.0-2.0 [facility] Comment on above: Performed By: #### L [id number] ####De Icer: MARY STOELO ([id number])[facility] [place] [place] [address] IMMATURE GRANS ABSOLUTE 0.1 10*3/uL High <0.1 [facility] Comment on above: Performed By: #### L [id number] ####De Icer: MARY SOTELO ([id number])[facility])[address] [place] [address] Lymphocytes (Bld) [#/Vol] 0.3 10*3/uL Low 1.0-4.3 [facility] Comment on above: Performed By: #### L [id number] ####De Icer: MARY SOTELO ([id number])[facility] [place])[address] [place] [address] Lymphocytes/100 WBC (Bld) 2.9 % Low 15.0-45.0 [facility] Comment on above: Performed By: #### L [id number] ####De Icer: MARY SOTELO ([id number])[facility] [place])[address] [place] [address] MCH (RBC) [Entitic mass] 28.9 pg Normal 26.0-34.0 [facility] Comment on above: Performed By: #### L [id number] ####De Icer: MARY SOTELO ([id number])[facility] [place])[address] [place] [address] MCHC 34.1 % Normal 30.5-36.0 [facility] Comment on above: Performed By: #### L [id number] ####De Icer: MARY SOTELO ([id number])[facility] [place])[address] [place] [address] MCV (RBC) [Entitic vol] 84.6 fL Normal 77.0-99.0 [facility] Comment on above: Performed By: #### L [id number] ####De Icer: MARY SOTELO ([id number])[facility] ([facility])[address] [place] [address] Monocytes (Bld) [#/Vol] 0.4 10*3/uL Normal 0.0-0.9 [facility] Comment on above: Performed By: #### L [id number] ####De Icer: MARY SOTELO ([id number])[facility] [place])[address] [place] [address] Monocytes/100 WBC (Bld) 3.6 % Low 5.0-13.0 [facility] Comment on above: Performed By: #### L [id number] ####De Icer: MARY SOTELO ([id number])[facility] [place])[address] [place] [address] NEUTROPHILS ABSOLUTE 10.7 10*3/uL High 1.8-7.5 [facility] Comment on above: Performed By: #### L [id number] ####De Icer: MARY SOTELO ([id number])[facility] [place])[address] [place] [address] Neutrophils/100 WBC (Bld) 93.0 % High 38.0-82.0 [facility] Comment on above: Performed By: #### L [id number] ####De Icer: MARY SOTELO ([id number])[facility] [place])[address] [place] [address] NRBC 0.0 /100 WBCs Normal 0.0-2.0 [facility] Comment on above: Performed By: #### L [id number] ####De Icer: MARY SOTELO ([id number])[facility] ([facility])[address] [place] [address] Platelet mean volume (Bld) [Entitic vol] 10.5 fL Normal 9.0-12.7 [facility] Comment on above: Performed By: #### L [id number] ####De Icer: MARY SOTELO ([id number])[facility] ([facility])[address] [place] [address] Platelets (Bld) [#/Vol] 160 10*3/uL Normal 140-440 [facility] Comment on above: Performed By: #### L [id number] ####De Icer: MARY SOTELO ([id number])[facility] ([facility])[address] [place] [address] RBC (Bld) [#/Vol] 3.05 10*6/uL Low 3.80-5.20 [facility] Comment on above: Performed By: #### L [id number] ####De Icer: MARY SOTELO ([id number])[facility] ([facility])[address] [place] [address] WBC (Bld) [#/Vol] 11.5 10*3/uL High 3.6-10.7 [facility] Comment on above: Performed By: #### L [id number] ####De Icer: MARY SOTELO ([id number])[facility] ([facility])[address] [place] [address] COMPREHENSIVE METABOLIC PANE [place] 07-28-2024 Albumin [Mass/Vol] 2.2 g/dL Low 3.5-5.0 [facility] Comment on above: Performed By: #### L [id number], [id number], LAB17 ####De Icer: MARY SOTELO ([id number])[facility] [place])[address] [place] [address] ALP [Catalytic activity/Vol] 78 U/L Normal 38-126 [facility] Comment on above: Performed By: #### L AB103, [id number], LAB17 ####De Icer: MARY SOTELO ([id number])[facility] ([facility])[address] [place] [address] ALT [Catalytic activity/Vol] 23 U/L Normal 0-34 [facility] Comment on above: Performed By: #### L AB103, [id number], LAB17 ####De Icer: MARY SOTELO ([id number])[facility] ([facility])[address] [place] [address] Anion gap [Moles/Vol] 4 mmol/L Normal 3-13 [facility] Comment on above: Performed By: #### L AB103, [id number], LAB17 ####De Icer: MARY SOTELO ([phone])[facility] [place])[address] [place] [address] AST [Catalytic activity/Vol] 44 U/L Normal 15-46 [facility] Comment on above: Performed By: #### L AB103, [id number], LAB17 ####De Icer: MARY SOTELO ([id number])[facility] ([facility])[address] [place] [address] Bilirubin [Mass/Vol] 0.5 mg/dL Normal 0.2-1.3 [facility] Comment on above: Performed By: #### L AB103, [id number], LAB17 ####De Icer: MARY SOTELO ([id number])[facility] ([facility])[address] [place] [address] Calcium [Mass/Vol] 7.3 mg/dL Low 8.4-10.4 [facility] Comment on above: Performed By: #### L AB103, [id number], LAB17 ####De Icer: MARY SOTELO ([id number])[facility] [place])[address] [place] [address] Chloride [Moles/Vol] 102 mmol/L Normal 98-107 [facility] Comment on above: Performed By: #### L AB103, [id number], LAB17 ####De Icer: MARY SOTELO ([id number])[facility] [place] [address] CO2 [Moles/Vol] 24 mmol/L Normal 22-30 [facility] Comment on above: Performed By: #### L AB103, [id number], LAB17 ####De Icer: MARY SOTELO ([id number])[facility] ([facility])[address] [place] [address] Creatinine [Mass/Vol] 1.50 mg/dL High 0.52-1.04 [facility] Comment on above: Performed By: #### L AB103, [id number], LAB17 ####De Icer: MARY SOTELO ([id number])[facility] [place])[address] [place] [address] GLOMERULAR FILTRATION RATE ML/MIN/1.73 SQ M.PREDICTED 38.8 mL/min/1.73m*2 Low >60.0 [facility] Comment on above: Result Comment: Calc ulation based on the Chronic Kidney Disease Epidemiology Collaboration (CKD-EPI) equation refit without adjustment for race Performed By: #### L AB103, [id number], LAB17 ####De Icer: MARY SOTELO ([id number])[facility] ([facility])[address] [place] [address] Glucose [Mass/Vol] 149 mg/dL High 70-100 [facility] Comment on above: Performed By: #### L AB103, [id number], LAB17 ####De Icer: MRAY SOTELO ([id number])[facility] ([facility])[address] [place] [address] Potassium [Moles/Vol] 4.5 mmol/L Normal 3.5-5.1 [facility] Comment on above: Performed By: #### L AB103, QGL634, LAB17 ####De Icer: MARY SOTELO ([id number])[facility] [place])[address] [place] [address] Protein [Mass/Vol] 4.6 g/dL Low 6.3-8.2 [facility] Comment on above: Performed By: #### L AB103, [id number], LAB17 ####De Icer: MARY SOTELO ([id number])[facility] [place])[address] [place] [address] Sodium [Moles/Vol] 130 mmol/L Low 135-145 [facility] Comment on above: Performed By: #### L AB103, [id number], LAB17 ####De Icer: MARY SOTELO ([id number])[facility] [place])[address] [place] [address] Urea nitrogen [Mass/Vol] 31 mg/dL High 7-17 [facility] Comment on above: Performed By: #### L AB103, [id number], LAB17 ####De Icer: MARY SOTELO ([id number])[facility] [place])[address] [place] [address] Consulton 07-28-2024 Consult Normal [facility] ECG 12-LEADon 07-28-2024 ECG 12-LEAD IMPRESSION: Sinus rhythm Multiple ventricular premature complexes Anterior infarct, old Borderline T abnormalities Electronically Signed On 07-28-2024 12:41:46 EDT by Keisha Acosta Normal [facility] IDNon 07-28-2024 IDAnia Normal [facility] MAGNESIUMon 07-28-2024 Magnesium [Mass/Vol] 2.7 mg/dL High 1.6-2.3 [facility] Comment on above: Performed By: #### L ABErika, [id number], LAB17 ####De Icer: MARY SOTELO ([id number])[facility] [place])[address] [place] [address] [place] Magnesium [Mass/Vol] 2.2 mg/dL Normal 1.6-2.3 [facility] Comment on above: Performed By: #### L AB103, [id number], LAB15 ####De Icer: MARY SOTELO ([id number])[facility] [place])[address] [place] [address] PHOSPHORUSon 07-28-2024 Phosphate [Mass/Vol] 3.5 mg/dL Normal 2.5-4.5 [facility] Comment on above: Performed By: #### L AB103, [id number], LAB17 ####De Icer: MARY SOTELO ([id number])[facility] [place])[address] [place] [address] Phosphate [Mass/Vol] 3.6 mg/dL Normal 2.5-4.5 [facility] Comment on above: Performed By: #### L AB103, [id number], LAB15 ####De Icer: MARY SOTELO ([id number])[facility] ([facility])[address] [place] [address] Progress Noteon 07-28-2024 Progress Note Normal [facility] Progress Note Normal [facility] Progress Note Normal [facility] Progress Note [facility] RENAL FUNCTION PANELon 07-28 Albumin [Mass/Vol] 2.2 g/dL Low 3.5-5.0 [facility] Comment on above: Performed By: #### L AB19 ####De Icer: MARY SOTELO ([id number])[facility] ([facility])[address] [place] [address] Anion gap [Moles/Vol] 0 mmol/L Low 3-13 [facility] Comment on above: Performed By: #### L AB19 ####De Icer: MARY SOTELO ([id number])[facility] ([facility])[address] [place] [address] Calcium [Mass/Vol] 7.4 mg/dL Low 8.4-10.4 [facility] Comment on above: Performed By: #### L AB19 ####De Icer: MARY SOTELO ([id number])[facility] ([facility])[address] [place] [address] [place] Chloride [Moles/Vol] 104 mmol/L Normal 98-107 [facility] Comment on above: Performed By: #### L AB19 ####De Icer: MARY SOTELO ([id number])[facility] ([facility])[address] [place] [address] [place] CO2 [Moles/Vol] 26 mmol/L Normal 22-30 [facility] Comment on above: Performed By: #### L AB19 ####De Icer: MARY SOTELO ([id number])[facility] [place], [place] [id number] [place] [address] Creatinine [Mass/Vol] 1.26 mg/dL High 0.52-1.04 [facility] Comment on above: Performed By: #### L AB19 ####De Icer: MARY SOTELO ([id number])[facility] [place] [address] GLOMERULAR FILTRATION RATE ML/MIN/1.73 SQ M.PREDICTED 47.8 mL/min/1.73m*2 Low >60.0 [facility] Comment on above: Result Comment: Calc ulation based on the Chronic Kidney Disease Epidemiology Collaboration (CKD-EPI) equation refit without adjustment for race Performed By: #### L AB19 ####De Icer: MARY SOTELO ([id number])[facility] [place] [address] [place] Glucose [Mass/Vol] 123 mg/dL High 70-100 [facility] Comment on above: Performed By: #### L AB19 ####De Icer: MARY SOTELO ([id number])[facility] [place] [address] [place] Phosphate [Mass/Vol] 2.4 mg/dL Low 2.5-4.5 [facility] Comment on above: Performed By: #### L AB19 ####De Icer: MARY SOTELO ([id number])[facility] [place] [address] [place] Potassium [Moles/Vol] 4.6 mmol/L Normal 3.5-5.1 [facility] Comment on above: Performed By: #### L AB19 ####De Icer: MARY SOTELO ([id number])[facility] [place] [address] [place] Sodium [Moles/Vol] 130 mmol/L Low 135-145 [facility] Comment on above: Performed By: #### L AB19 ####De Icer: MARY SOTELO ([id number])[facility] [place])[address] [place] [address] Urea nitrogen [Mass/Vol] 28 mg/dL High 7-17 [facility] Comment on above: Performed By: #### L AB19 ####De Icer: MARY SOTELO ([id number])[facility] ([facility])[address] [place] [address] Albumin [Mass/Vol] 2.1 g/dL Low 3.5-5.0 [facility] Comment on above: Performed By: #### L AB19 ####De Icer: MARY SOTELO ([id number])[facility] ([facility])[address] [place] [address] Anion gap [Moles/Vol] 3 mmol/L Normal 3-13 [facility] Comment on above: Performed By: #### L AB19 ####De Icer: MARY SOTELO ([id number])[facility] ([facility])[address] [place] [address] Calcium [Mass/Vol] 7.8 mg/dL Low 8.4-10.4 [facility] Comment on above: Performed By: #### L AB19 ####De Icer: MARY SOTELO ([id number])[facility] ([facility])[address] [place] [address] Chloride [Moles/Vol] 103 mmol/L Normal 98-107 [facility] Comment on above: Performed By: #### L AB19 ####De Icer: MARY SOTELO ([id number])[facility] ([facility])[address] [place] [address] CO2 [Moles/Vol] 26 mmol/L Normal 22-30 [facility] Comment on above: Performed By: #### L AB19 ####De Icer: MARY SOTELO ([id number])[facility] ([facility])[address] [place] [address] Creatinine [Mass/Vol] 1.33 mg/dL High 0.52-1.04 [facility] Comment on above: Performed By: #### L AB19 ####De Icer: MARY SOTELO ([id number])[facility] ([facility])[address] [place] [address] [place] GLOMERULAR FILTRATION RATE ML/MIN/1.73 SQ M.PREDICTED 44.8 mL/min/1.73m*2 Low >60.0 [facility] Comment on above: Result Comment: Calc ulation based on the Chronic Kidney Disease Epidemiology Collaboration (CKD-EPI) equation refit without adjustment for race Performed By: #### L AB19 ####De Icer: MARY SOTELO ([id number])[facility] ([facility])[address] [place] [address] Glucose [Mass/Vol] 139 mg/dL High 70-100 [facility] Comment on above: Performed By: #### L AB19 ####De Icer: MARY SOTELO ([id number])[facility] [place] [address] Phosphate [Mass/Vol] 2.7 mg/dL Normal 2.5-4.5 [facility] Comment on above: Performed By: #### L AB19 ####De Icer: MARY SOTELO ([id number])[facility] ([facility])[address] [place] [address] [place] Potassium [Moles/Vol] 4.2 mmol/L Normal 3.5-5.1 [facility] Comment on above: Performed By: #### L AB19 ####De Icer: MARY SOTELO ([id number])[facility] ([facility])[address] [place] [address] [place] Sodium [Moles/Vol] 131 mmol/L Low 135-145 [facility] Comment on above: Performed By: #### L AB19 ####De Icer: MARY SOTELO ([id number])[facility] ([facility])[address] [place] [address] [place] Urea nitrogen [Mass/Vol] 30 mg/dL High 7-17 [facility] Comment on above: Performed By: #### L AB19 ####De Icer: MARY SOTELO ([id number])[facility] ([facility])[address] [place] [address] XR CHEST 1 VIEWon 07-28-2024 XR CHEST 1 VIEW Normal [facility] BASIC METABOLIC PANELon 07-05 Anion gap [Moles/Vol] 6 mmol/L Normal 3-13 [facility] Comment on above: Performed By: #### L AB103, LAB15 ####De Icer: MARY SOTELO ([id number])[facility] ([facility])[address] [place] [address] Calcium [Mass/Vol] 7.3 mg/dL Low 8.4-10.4 [facility] Comment on above: Performed By: #### L AB103, LAB15 ####De Icer: MARY SOTELO ([id number])[facility] [place] [address] Chloride [Moles/Vol] 102 mmol/L Normal 98-107 [facility] Comment on above: Performed By: #### L AB103, LAB15 ####De Icer: MARY SOTELO ([id number])[facility] ([facility])[address] [place] [address] [place] CO2 [Moles/Vol] 24 mmol/L Normal 22-30 [facility] Comment on above: Performed By: #### L AB103, LAB15 ####De Icer: MARY SOTELO ([id number])[facility] [place] [address] Creatinine [Mass/Vol] 2.18 mg/dL High 0.52-1.04 [facility] Comment on above: Performed By: #### L AB103, LAB15 ####De Icer: MARY SOTELO ([id number])[facility] ([facility])[address] [place] [address] GLOMERULAR FILTRATION RATE ML/MIN/1.73 SQ M.PREDICTED 24.7 mL/min/1.73m*2 Low >60.0 [facility] Comment on above: Result Comment: Calc ulation based on the Chronic Kidney Disease Epidemiology Collaboration (CKD-EPI) equation refit without adjustment for race Performed By: #### L AB103, LAB15 ####De Icer: MARY SOTELO ([id number])[facility])[address] [place] [address] Glucose [Mass/Vol] 87 mg/dL Normal 70-100 [facility] Comment on above: Performed By: #### L AB103, LAB15 ####De Icer: MARY SOTELO ([id number])[facility])[address] [place] [address] Potassium [Moles/Vol] 3.6 mmol/L Normal 3.5-5.1 [facility] Comment on above: Performed By: #### L AB103, LAB15 ####De Icer: MARY SOTELO ([id number])[facility] ([facility])[address] [place] [address] [place] Sodium [Moles/Vol] 131 mmol/L Low 135-145 [facility] Comment on above: Performed By: #### L AB103, LAB15 ####De Icer: MARY SOTELO ([id number])[facility])[address] [place] [address] [place] Urea nitrogen [Mass/Vol] 41 mg/dL High 7-17 [facility] Comment on above: Performed By: #### L AB103, LAB15 ####De Icer: MARY SOTELO ([id number])[facility])[address] [place] [address] [place] BLOOD GAS ARTERIALon 024 Base excess Calc (Bld) [Moles/Vol] 0.4 mmol/L Normal -3.0-3.0 [facility] Comment on above: Performed By: #### L AB76 ####De Icer: MARY SOTELO ([id number])[facility] [place] [address] CO2 [Moles/Vol] 26.5 mmol/L Normal 23.0-27.0 [facility] Comment on above: Performed By: #### L AB76 ####De Icer: MARY SOTELO ([id number])[facility] [place] [address] HCO3 (Bld) [Moles/Vol] 25.3 mmol/L High 21.0-25.0 [facility] Comment on above: Performed By: #### L AB76 ####De Icer: MARY SOTELO ([id number])[facility] ([facility])[address] [place] [address] Hemoglobin (Bld) [Mass/Vol] 8.9 g/dL Normal Screen only [facility] Comment on above: Performed By: #### L AB76 ####De Icer: MARY SOTELO ([id number])[facility] ([facility])[address] [place] [address] OXYGEN SATURATION (%) IN ARTERIAL BLOOD 97.1 % Normal 95.0-100.0 [facility] Comment on above: Performed By: #### L AB76 ####De Icer: MARY SOTELO ([id number])[facility] ([facility])[address] [place] [address] PCO2 ARTERIAL 41.9 mm Hg Normal >35.0-<45.0 [facility] Comment on above: Performed By: #### L AB76 ####De Icer: MARY SOTELO ([id number])[facility] ([facility])[address] [place] [address] PH ARTERIAL 7.398 Normal 7.350-7.450 [facility] Comment on above: Performed By: #### L AB76 ####De Icer: MARY SOTELO ([id number])[facility] ([facility])[address] [place] [address] PO2 ARTERIAL 100.1 mm Hg High 80.0-100.0 [facility] Comment on above: Performed By: #### L AB76 ####De Icer: MARY SOTELO ([id number])[facility] ([facility])[address] [place] [address] SOURCE OF OXYGEN 30% Oxygen Normal [facility] Comment on above: Result Comment: vent Performed By: #### L AB76 ####De Icer: MARY SOTELO ([id number])[facility] ([facility])[address] [place] [address] Base excess Calc (Bld) [Moles/Vol] -2.5000 mmol/L Normal -3.0-3.0 [facility] Comment on above: Order Comment: 30 mi n after vent changes Performed By: #### L [id number] ####De Icer: MARY SOTELO ([id number])[facility] ([facility])[address] [place] [address] CO2 [Moles/Vol] 26.0 mmol/L Normal 23.0-27.0 [facility] Comment on above: Order Comment: 30 mi n after vent changes Performed By: #### L [id number] ####De Icer: MARY SOTELO ([id number])[facility] ([facility])[address] [place] [address] HCO3 (Bld) [Moles/Vol] 24.4 mmol/L Normal 21.0-25.0 [facility] Comment on above: Order Comment: 30 mi n after vent changes Performed By: #### L [id number] ####De Icer: MARY SOTELO ([id number])[facility] ([facility])[address] [place] [address] Hemoglobin (Bld) [Mass/Vol] 9.3 g/dL Normal Screen only [facility] Comment on above: Order Comment: 30 mi n after vent changes Performed By: #### L [id number] ####De Icer: MARY SOTELO ([id number])[facility] ([facility])[address] [place] [address] OXYGEN SATURATION (%) IN ARTERIAL BLOOD 97.1 % Normal 95.0-100.0 [facility] Comment on above: Order Comment: 30 mi n after vent changes Performed By: #### L [id number] ####De Icer: MARY SOTELO ([id number])[facility] ([facility])[address] [place] [address] PCO2 ARTERIAL 52.3 mm Hg High >35.0-<45.0 [facility] Comment on above: Order Comment: 30 mi n after vent changes Performed By: #### L [id number] ####De Icer: MARY SOTELO ([id number])[facility] ([facility])[address] [place] [address] PH ARTERIAL 7.286 Low 7.350-7.450 [facility] Comment on above: Order Comment: 30 mi n after vent changes Performed By: #### L [id number] ####De Icer: MARY SOTELO ([id number])[facility] ([facility])[address] [place] [address] PO2 ARTERIAL 115.1 mm Hg High 80.0-100.0 [facility] Comment on above: Order Comment: 30 mi n after vent changes Performed By: #### L [id number] ####De Icer: MARY SOTELO ([id number])[facility] ([facility])[address] [place] [address] SOURCE OF OXYGEN 30% Oxygen Normal [facility] Comment on above: Order Comment: 30 mi n after vent changes Result Comment: vent Performed By: #### L [id number] ####De Icer: MARY SOTELO ([id number])[facility] ([facility])[address] [place] [address] Base excess Calc (Bld) [Moles/Vol] -6.7000 mmol/L Low -3.0-3.0 [facility] Comment on above: Performed By: #### L [id number] ####De Icer: MARY SOTELO ([phone])[facility] ([facility])[address] [place] [address] CO2 [Moles/Vol] 22.8 mmol/L Low 23.0-27.0 [facility] Comment on above: Performed By: #### L [id number] ####De Icer: MARY SOTELO ([id number])[facility] ([facility])[address] [place] [address] HCO3 (Bld) [Moles/Vol] 21.1 mmol/L Normal 21.0-25.0 [facility] Comment on above: Performed By: #### L [id number] ####De Icer: MARY SOTELO ([phone])[facility] ([facility])[address] [place] [address] Hemoglobin (Bld) [Mass/Vol] 9.9 g/dL Normal Screen only [facility] Comment on above: Performed By: #### L [id number] ####De Icer: MARY SOTELO ([phone])[facility])[address] [place] [address] OXYGEN SATURATION (%) IN ARTERIAL BLOOD 96.9 % Normal 95.0-100.0 [facility] Comment on above: Performed By: #### L [id number] ####De Icer: MARY SOTELO ([phone])[facility] ([facility])[address] [place] [address] PCO2 ARTERIAL 53.5 mm Hg High >35.0-<45.0 [facility] Comment on above: Performed By: #### L [id number] ####De Icer: MARY SOTELO ([id number])[facility] ([facility])[address] [place] [address] PH ARTERIAL 7.214 Low 7.350-7.450 [facility] Comment on above: Performed By: #### L [id number] ####De Icer: MARY SOTELO ([phone])[facility] ([facility])[address] [place] [address] PO2 ARTERIAL 108.9 mm Hg High 80.0-100.0 [facility] Comment on above: Performed By: #### L [id number] ####De Icer: MARY [id number])[facility] ([facility])[address] [place] [address] [place] SOURCE OF OXYGEN Vent Normal [facility] Comment on above: Performed By: #### L [id number] ####De Icer: MARY SOTELO ([phone])[facility] [place] [address] [place] C3, BLOODon 07-27-2024 C3, BLOOD 56 mg/dL Low 88-165 [facility] Comment on above: Performed By: #### L [id number], [id number] ####De Icer: MARLENY GUZMÁN ([id number])[facility] KASSANDRARADHA ([facility])[address] C4 COMPLEMENTon 07-27-2024 C4, BLOOD 10 mg/dL Low 14-44 [facility] Comment on above: Performed By: #### L [id number], [id number] ####De Icer: MARLENY GUZMÁN ([id number])[facility] BARBRADHA ([facility])[address] [place] [address] [place] CALCIUM, IONIZEDon 4 CALCIUM IONIZED 4.00 mg/dL Low 4.30-5.20 [facility] Comment on above: Performed By: #### L [id number] ####De Icer: MARY SOTELO ([id number])[facility] [place] [address] [place] PH, IONIZED CALCIUM 7.50 High 7.31-7.46 [facility] Comment on above: Performed By: #### L [id number] ####De Icer: MARY SOTELO ([id number])[facility] ([facility])[address] [place] [address] [place] CALCIUM IONIZED 4.20 mg/dL Low 4.30-5.20 [facility] Comment on above: Performed By: #### L [id number] ####De Icer: MARY SOTELO ([id number])[facility] [place] [address] [place] PH, IONIZED CALCIUM 7.32 Normal 7.31-7.46 [facility] Comment on above: Performed By: #### L AB54 ####De Icer: MARY SOTELO ([phone])[facility])[address] [place] [address] CALCIUM IONIZED 3.70 mg/dL Low 4.30-5.20 [facility] Comment on above: Performed By: #### L [id number] ####De Icer: MARY SOTELO ([phone])[facility])[address] [place] [address] PH, IONIZED CALCIUM 7.22 Low 7.31-7.46 [facility] Comment on above: Performed By: #### L AB54 ####De Icer: MARY SOTELO ([phone])[facility])[address] [place] [address] CARECOORDon 07-27-2024 CARECOORD Normal [facility] CBC WITH AUTO DIFFERENTIALon 07-27-2024 Erythrocyte distribution width (RBC) [Ratio] 15.3 % High 11.5-15.0 [facility] Comment on above: Performed By: #### L [id number], [id number] ####De Icer: MARY SOTELO ([id number])[facility])[address] [place] [address] Hematocrit (Bld) [Volume fraction] 27.2 % Low 35.0-47.0 [facility] Comment on above: Performed By: #### L [id number], [id number] ####De Icer: MARY SOTELO ([id number])[facility] ([facility])[address] [place] [address] Hemoglobin (Bld) [Mass/Vol] 8.8 g/dL Low 11.7-16.0 [facility] Comment on above: Performed By: #### L [id number], [id number] ####De Icer: MARY SOTELO ([id number])[facility])[address] [place] [address] MCH (RBC) [Entitic mass] 28.5 pg Normal 26.0-34.0 [facility] Comment on above: Performed By: #### L [id number], [id number] ####De Icer: MARY SOTELO ([id number])[facility])[address] [place] [address] MCHC 32.4 % Normal 30.5-36.0 [facility] Comment on above: Performed By: #### L [id number], [id number] ####De Icer: MARY SOTELO ([phone])[facility])[address] [place] [address] MCV (RBC) [Entitic vol] 88.0 fL Normal 77.0-99.0 [facility] Comment on above: Performed By: #### L [id number], [id number] ####De Icer: MARY SOTELO ([id number])[facility])[address] [place] [address] Platelet mean volume (Bld) [Entitic vol] 10.4 fL Normal 9.0-12.7 [facility] Comment on above: Performed By: #### Dora [id number], [id number] ####De Icer: MARY SOTELO ([id number])[facility])[address] [place] [address] Platelets (Bld) [#/Vol] 186 10*3/uL Normal 140-440 [facility] Comment on above: Performed By: #### L [id number], [id number] ####De Icer: MARY SOTELO ([id number])[facility])[address] [place] [address] RBC (Bld) [#/Vol] 3.09 10*6/uL Low 3.80-5.20 [facility] Comment on above: Performed By: #### L [id number], [id number] ####De Icer: MARY SOTELO ([id number])[facility])[address] [place] [address] WBC (Bld) [#/Vol] 14.5 10*3/uL High 3.6-10.7 [facility] Comment on above: Performed By: #### L [id number], [id number] ####De Icer: MRAY SOTELO ([id number])[facility] ([facility])[address] [place] [address] CKon 07-27-2024 CK [Catalytic activity/Vol] 865 U/L High 30-170 [facility] Comment on above: Performed By: #### L AB62, LAB17, [id number], [id number] ####De Icer: MARY SOTELO ([phone])[facility] ([facility])[address] [place] [address] COMPREHENSIVE METABOLIC PANE [place] 07-27-2024 Albumin [Mass/Vol] 2.4 g/dL Low 3.5-5.0 [facility] Comment on above: Performed By: #### L AB62, LAB17, [id number], [id number] ####De Icer: MARY SOTELO ([id number])[facility] ([facility])[address] [place] [address] ALP [Catalytic activity/Vol] 66 U/L Normal 38-126 [facility] Comment on above: Performed By: #### L AB62, LAB17, [id number], [id number] ####De Icer: MARY SOTELO ([id number])[facility] ([facility])[address] [place] [address] ALT [Catalytic activity/Vol] 19 U/L Normal 0-34 [facility] Comment on above: Performed By: #### L AB62, LAB17, [id number], [id number] ####De Icer: MARY SOTELO ([id number])[facility] ([facility])[address] [place] [address] Anion gap [Moles/Vol] 11 mmol/L Normal 3-13 [facility] Comment on above: Performed By: #### L AB62, LAB17, [id number], [id number] ####De Icer: MARY SOTELO ([id number])[facility])[address] [place] [address] AST [Catalytic activity/Vol] 28 U/L Normal 15-46 [facility] Comment on above: Performed By: #### L AB62, LAB17, [id number], CUT335 ####De Icer: AMRY SOTELO ([id number])[facility] ([facility])[address] [place] [address] Bilirubin [Mass/Vol] 0.3 mg/dL Normal 0.2-1.3 [facility] Comment on above: Performed By: #### L AB62, LAB17, RND005, [id number] ####De Icer: MARY SOTELO ([id number])[facility] ([facility])[address] [place] [address] Calcium [Mass/Vol] 6.5 mg/dL Low 8.4-10.4 [facility] Comment on above: Performed By: #### L AB62, LAB17, APL047, IEF162 ####De Icer: MARY SOTELO ([id number])[facility] ([facility])[address] [place] [address] [place] Chloride [Moles/Vol] 101 mmol/L Normal 98-107 [facility] Comment on above: Performed By: #### L AB62, LAB17, DRO032, [id number] ####De Icer: MARY SOTELO ([phone])[facility] ([facility])[address] [place] [address] [place] CO2 [Moles/Vol] 18 mmol/L Low 22-30 [facility] Comment on above: Performed By: #### L AB62, LAB17, RYT366, SVD535 ####De Icer: MARY SOTELO ([id number])[facility] ([facility])[address] [place] [address] [place] Creatinine [Mass/Vol] 4.00 mg/dL High 0.52-1.04 [facility] Comment on above: Performed By: #### L AB62, LAB17, VFN464, ZDM039 ####De Icer: MARY SOTELO ([id number])[facility] ([address] GLOMERULAR FILTRATION RATE ML/MIN/1.73 SQ M.PREDICTED 11.9 mL/min/1.73m*2 Low >60.0 [facility] Comment on above: Result Comment: Calc ulation based on the Chronic Kidney Disease Epidemiology Collaboration (CKD-EPI) equation refit without adjustment for race Performed By: #### L AB62, LAB17, HRN735, PMU122 ####De Icer: MARY SOTELO ([phone])[facility])[address] [place] [address] Glucose [Mass/Vol] 254 mg/dL High 70-100 [facility] Comment on above: Performed By: #### L AB62, LAB17, NAO968, KGM701 ####De Icer: MARY SOTELO ([id number])[facility])[address] [place] [address] Potassium [Moles/Vol] 4.3 mmol/L Normal 3.5-5.1 [facility] Comment on above: Performed By: #### L AB62, LAB17, NUN389, GGD804 ####De Icer: MRAY SOTELO ([id number])[facility])[address] [place] [address] Protein [Mass/Vol] 4.9 g/dL Low 6.3-8.2 [facility] Comment on above: Performed By: #### L AB62, LAB17, QNT163, SFY325 ####De Icer: MARY SOTELO ([phone])[facility])[address] [place] [address] [place] Sodium [Moles/Vol] 130 mmol/L Low 135-145 [facility] Comment on above: Performed By: #### L AB62, LAB17, BQH919, CTV150 ####De Icer: MARY SOTELO ([id number])[facility])[address] [place] [address] [place] Urea nitrogen [Mass/Vol] 66 mg/dL High 7-17 [facility] Comment on above: Performed By: #### L AB62, LAB17, EUP452, XPM649 ####De Icer: MARY SOTELO ([id number])[facility])[address] [place] [address] Consulton 07-27-2024 Consult Normal [facility] Consult Normal [facility] Consult Normal [facility] ECG 12-LEADon 07-27-2024 ECG 12-LEAD IMPRESSION: Sinus rhythm Short MS interval Left anterior fascicular block Anteroseptal infarct, age indeterminate Nonspecific T abnormalities, lateral leads Electronically Signed On 07-27-2024 07:43:40 EDT by Mira Byrd Normal [facility] FREE T4on 07-27-2024 Free T4 [Mass/Vol] 1.67 ng/dL Normal 0.78-2.19 [facility] Comment on above: Performed By: #### L [id number] ####De Icer: MARY SOTELO ([phone])[facility])[address] [place] [address] HEPATITIS B SURFACE ANTIBODY on 07-27-2024 HEPATITIS B VIRUS SURFACE AB <8.0 Normal [facility] Comment on above: Result Comment: ORDE R COMMENTS:Interpretation:<8.0 Non-Reactive8.0-11.9 Equivocal>= 12.0 Ab DetectedNote: If an equivocal result is interpreted, an antibody status is unable to be determined. Collect new specimen if clinically indicated. Performed By: #### L [id number], [id number] ####De Icer: MARY SOTELO ([id number])[facility])[address] [place] [address] HEPATITIS B SURFACE ANTIGENo n 07-27-2024 HEPATITIS B VIRUS SURFACE AG Not detected Normal Not Detected [facility] Comment on above: Performed By: #### L [id number], [id number] ####De Icer: MARY SOTELO ([phone])[facility])[address] [place] [address] MAGNESIUMon 07-27-2024 Magnesium [Mass/Vol] 1.9 mg/dL Normal 1.6-2.3 [facility] Comment on above: Performed By: #### L AB103, LAB15 ####De Icer: MARY SOTELO ([id number])[facility])[address] [place] [address] Magnesium [Mass/Vol] 2.0 mg/dL Normal 1.6-2.3 [facility] Comment on above: Performed By: #### L AB62, LAB17, [id number], [id number] ####De Icer: MARY SOTELO ([phone])[facility])[address] [place] [address] MANUAL DIFFERENTIAL (CELLAVI ESPINOZA)on 07-27-2024 ANISOCYTOSIS PRESENCE IN BLOOD BY LIGHT MICROSCOPY Slight Abnormal (none) [facility] Comment on above: Performed By: #### L [id number], [id number] ####De Icer: MARY SOTELO ([id number])[facility])[address] [place] [address] BAND NEUTROPHILS TOTAL PER COUNTED LEUKOCYTES BY MANUAL COUNT Normal [facility] Comment on above: Performed By: #### L [id number], [id number] ####De Icer: MARY SOTELO ([phone])[facility])[address] [place] [address] BASOPHILIC STIPPLING PRESENCE IN BLOOD BY LIGHT MICROSCOPY Rare Abnormal (none) [facility] Comment on above: Performed By: #### L [id number], [id number] ####De Icer: MARY SOTELO ([id number])[facility])[address] [place] [address] BASOPHILS TOTAL PER COUNTED LEUKOCYTES BY MANUAL COUNT Normal [facility] Comment on above: Performed By: #### L [id number], [id number] ####De Icer: MARY SOTELO ([id number])[facility])[address] [place] [address] BLASTS TOTAL PER COUNTED LEUKOCYTES BY MANUAL COUNT Normal [facility] Comment on above: Performed By: #### L [id number], [id number] ####De Icer: MARY SOTELO ([id number])[facility] ([facility])[address] [place] [address] [place] EOSINOPHILS TOTAL PER COUNTED LEUKOCYTES BY MANUAL COUNT Normal [facility] Comment on above: Performed By: #### L [id number], [id number] ####De Icer: MARY SOTELO ([id number])[facility] ([facility])[address] [place] [address] [place] LYMPHOCYTE VARIANT/100 LEUKOCYTES IN BLOOD- CELLAVISION 1 % High <=0 [facility] Comment on above: Performed By: #### L [id number], [id number] ####De Icer: MARY SOTELO ([id number])[facility] ([facility])[address] [place] [address] [place] LYMPHOCYTES (10*3/UL) IN BLOOD-CELLAVISION 0.7 10*3/uL Low 1.0-4.3 [facility] Comment on above: Performed By: #### L [id number], [id number] ####De Icer: MARY SOTELO ([id number])[facility] [place] [address] [place] LYMPHOCYTES TOTAL PER COUNTED LEUKOCYTES BY MANUAL COUNT 5 Normal [facility] Comment on above: Performed By: #### L [id number], [id number] ####De Icer: MARY SOTELO ([phone])[facility] ([facility])[address] [place] [address] [place] LYMPHOCYTES/100 LEUKOCYTES IN BLOOD-CELLAVISION 5 % Low 15-45 [facility] Comment on above: Performed By: #### L [id number], [id number] ####De Icer: MARY SOTELO ([id number])[facility] ([facility])[address] [place] [address] [place] MACROCYTES (PRESENCE) IN BLOOD BY LIGHT MICROSCOPY Slight Abnormal (none) [facility] Comment on above: Performed By: #### L [id number], [id number] ####De Icer: MARY SOTELO ([id number])[facility] ([facility])[address] [place] [address] [place] METAMYELOCYTES TOTAL PER COUNTED LEUKOCYTES BY MANUAL COUNT Normal [facility] Comment on above: Performed By: #### L [id number], [id number] ####De Icer: MARY SOTELO ([id number])[facility] ([facility])[address] [place] [address] MICROCYTES (PRESENCE) IN BLOOD BY LIGHT MICROSCOPY Slight Abnormal (none) [facility] Comment on above: Performed By: #### L [id number], [id number] ####De Icer: MARY SOTELO ([id number])[facility] ([facility])[address] [place] [address] [place] MONOCYTES (10*3/UL) IN BLOOD-CELLAVISION 0.7 10*3/uL Normal 0.0-0.9 [facility] Comment on above: Performed By: #### L [id number], [id number] ####De Icer: MARY SOTELO ([id number])[facility] ([facility])[address] [place] [address] [place] MONOCYTES TOTAL PER COUNTED LEUKOCYTES BY MANUAL COUNT 5 Normal [facility] Comment on above: Performed By: #### L [id number], [id number] ####De Icer: MARY SOTELO ([id number])[facility] ([facility])[address] [place] [address] [place] MONOCYTES/100 LEUKOCYTES IN BLOOD-KACEY 5 % Normal 5-13 [facility] Comment on above: Performed By: #### L [id number], [id number] ####De Icer: MARY SOTELO ([id number])[facility] ([facility])[address] [place] [address] [place] MYELOCYTES COUNTED BY MANUAL COUNT Normal [facility] Comment on above: Performed By: #### L [id number], [id number] ####De Icer: MRAY SOTELO ([id number])[facility] ([facility])[address] [place] [address] [place] NEUTROPHILS TOTAL PER COUNTED LEUKOCYTES BY MANUAL COUNT 90 Normal [facility] Comment on above: Performed By: #### L [id number], [id number] ####De Icer: MARY SOTELO ([phone])[facility] [place] [address] OVALOCYTES PRESENCE IN BLOOD BY LIGHT MICROSCOPY Slight Abnormal (none) [facility] Comment on above: Performed By: #### L [id number], [id number] ####De Icer: MARY SOTELO ([phone])[facility] [place] [address] [place] POIKILOCYTOSIS (PRESENCE) IN BLOOD BY LIGHT MICROSCOPY Slight Abnormal (none) [facility] Comment on above: Performed By: #### L [id number], [id number] ####De Icer: MARY SOTELO ([id number])[facility])[address] [place] [address] POLYCHROMASIA IN BLOOD BY LIGHT MICROSCOPY Slight Abnormal (none) [facility] Comment on above: Performed By: #### L [id number], [id number] ####De Icer: MARY SOTELO ([id number])[facility] ([facility])[address] [place] [address] PROMYELOCYTES TOTAL PER COUNTED LEUKOCYTES BY MANUAL COUNT Normal [facility] Comment on above: Performed By: #### L [id number], [id number] ####De Icer: MARY SOTELO ([id number])[facility] ([facility])[address] [place] [address] RBC MORPHOLOGY IN BLOOD abnormal Normal [facility] Comment on above: Performed By: #### L [id number], [id number] ####De Icer: MARY SOTELO ([id number])[facility] ([facility])[address] [place] [address] [place] SEGMENTED NEUTROPHILS (10*3/UL) IN BLOOD-CELLAVISION 12.9 10*3/uL High 1.8-7.5 [facility] Comment on above: Performed By: #### L [id number], [id number] ####De Icer: MARY SOETLO ([id number])[facility])[address] [place] [address] SEGMENTED NEUTROPHILS/100 LEUKOCYTES-CE 89 % High 38-82 [facility] Comment on above: Performed By: #### L [id number], [id number] ####De Icer: MARY SOTELO ([id number])[facility])[address] [place] [address] UNCLASSIFIED CELLS TOTAL PER COUNTED LEUKOCYTES BY MANUAL COUNT Normal [facility] Comment on above: Performed By: #### L [id number], [id number] ####De Icer: MARY SOTELO ([id number])[facility])[address] [place] [address] VARIANT LYMPHOCYTES (10*3/UL) IN BLOOD-CELLAVISION 0.1 10*3/uL High <=0.0 [facility] Comment on above: Performed By: #### L [id number], [id number] ####De Icer: MARY SOTELO ([id number])[facility])[address] [place] [address] VARIANT LYMPHOCYTES TOTAL PER COUNTED LEUKOCYTES BY MANUAL COUNT 1 Normal [facility] Comment on above: Performed By: #### L [id number], [id number] ####De Icer: MARY SOTELO ([id number])[facility])[address] [place] [address] PHOSPHORUSon 07-27-2024 Phosphate [Mass/Vol] 6.8 mg/dL High 2.5-4.5 [facility] Comment on above: Performed By: #### L [id number], [id number], [id number], [id number] ####De Icer: MARY SOTELO ([id number])[facility])[address] [place] [address] PNEUMONIA PCR PANELon 2023 PNEUMONIA PCR PANEL Normal [facility] Comment on above: Performed By: #### L [id number] ####De Icer: MARY SOTELO ([id number])[facility])[address] [place] [address] Progress Noteon 07-27-2024 Progress Note Normal [facility] Progress Note Normal [facility] Progress Note OCCUPATIONAL THERAPY [facility] Name/MRN: Sandy Deng ([id number]) Date: 07/27/2024 Intubated, sedated, on bed rest. Will follow. Delmar Ling, OT Normal [facility] Progress Note PHYSICAL THERAPY [facility] Name/MRN: Sandy Deng ([id number]) Date: 07/27/2024 Screen Note. Pt remains intubated and sedated, and on strict bed rest orders. Will continue to follow and re-attempt as able. Jennifer Saldaña, SPT Normal [facility] Progress Note Normal [facility] Progress Note Normal [facility] Progress [facility] RENAL FUNCTION PANELon 07-27 Albumin [Mass/Vol] 2.4 g/dL Low 3.5-5.0 [facility] Comment on above: Performed By: #### L [id number] ####De Icer: MARY SOTELO ([id number])[facility] ([facility])[address] [place] [address] Anion gap [Moles/Vol] 4 mmol/L Normal 3-13 [facility] Comment on above: Performed By: #### L [id number] ####De Icer: MARY SOTELO ([id number])[facility] ([facility])[address] [place] [address] Calcium [Mass/Vol] 7.5 mg/dL Low 8.4-10.4 [facility] Comment on above: Performed By: #### L [id number] ####De Icer: MAYR SOTELO ([id number])[facility] ([facility])[address] [place] [address] [place] Chloride [Moles/Vol] 102 mmol/L Normal 98-107 [facility] Comment on above: Performed By: #### L [id number] ####De Icer: MARY SOTELO ([id number])[facility] ([facility])[address] [place] [address] [place] CO2 [Moles/Vol] 25 mmol/L Normal 22-30 [facility] Comment on above: Performed By: #### L [id number] ####De Icer: MARY SOTELO ([id number])[facility] ([facility])[address] [place] [id number] [place] [address] Creatinine [Mass/Vol] 2.81 mg/dL High 0.52-1.04 [facility] Comment on above: Performed By: #### L AB19 ####De Icer: MARY SOTELO ([id number])[facility] [place] [address] [place] GLOMERULAR FILTRATION RATE ML/MIN/1.73 SQ M.PREDICTED 18.2 mL/min/1.73m*2 Low >60.0 [facility] Comment on above: Result Comment: Calc ulation based on the Chronic Kidney Disease Epidemiology Collaboration (CKD-EPI) equation refit without adjustment for race Performed By: #### L AB19 ####De Icer: MARY SOTELO ([id number])[facility] [place] [address] Glucose [Mass/Vol] 83 mg/dL Normal 70-100 [facility] Comment on above: Performed By: #### L AB19 ####De Icer: MARY SOTELO ([id number])[facility] [place] [address] [place] Phosphate [Mass/Vol] 4.6 mg/dL High 2.5-4.5 [facility] Comment on above: Performed By: #### L AB19 ####De Icer: MARY SOTELO ([id number])[facility] ([facility])[address] [place] [address] [place] Potassium [Moles/Vol] 3.6 mmol/L Normal 3.5-5.1 [facility] Comment on above: Performed By: #### L AB19 ####De Icer: MARY SOTELO ([id number])[facility] [place] [address] [place] Sodium [Moles/Vol] 131 mmol/L Low 135-145 [facility] Comment on above: Performed By: #### L AB19 ####De Icer: MARY SOTELO ([id number])[facility] [place] [address] Urea nitrogen [Mass/Vol] 49 mg/dL High 7-17 [facility] Comment on above: Performed By: #### L AB19 ####De Icer: MARY SOTELO ([id number])[facility] [place] [address] [place] RESPIRATORY CULTURE AND STAI Non 07-27-2024 RESPIRATORY CULTURE AND STAIN Normal [facility] Comment on above: Performed By: #### L [id number] ####De Icer: MARY SOTELO ([id number])[facility] [place] [address] RESPIRATORY PATHOGENS PANEL BY PCRon 07-27-2024 RESPIRATORY PATHOGENS PANEL BY PCR Normal [facility] Comment on above: Performed By: #### L [id number] ####De Icer: MARY SOTELO ([id number])[facility] [place] [address] Renal Profileon 07-27-2024 ALB Normal 3.2-5.0 [facility] Comment on above: Result Comment: Canc elled via OM: Order cancelled - Patient discharged Performed By: #### L 500.3600 ####[facility] [address] [facility] [address] BUN Normal 7-18 [facility] Comment on above: Result Comment: Canc elled via OM: Order cancelled - Patient discharged Performed By: #### L 500.3600 ####[facility] [address] [place], [address] BUN/CRE Normal 10-20 [facility] Comment on above: Result Comment: Canc elled via OM: Order cancelled - Patient discharged Performed By: #### L 500.3600 ####[facility] [address] [place], [address] CA,Total Normal 8.5-10.1 [facility] Comment on above: Result Comment: Canc elled via OM: Order cancelled - Patient discharged Performed By: #### L 500.3600 ####[facility] [address] [place], [address] CL Normal 98-107 [facility] Comment on above: Result Comment: Canc elled via OM: Order cancelled - Patient discharged Performed By: #### L 500.3600 ####[facility] [address] [place], [address] CO2 Normal 21.0-32.0 [facility] Comment on above: Result Comment: Canc elled via OM: Order cancelled - Patient discharged Performed By: #### L 500.3600 ####[facility] [address] [place], [address] CREAT,SERUM Normal 0.55-1.02 [facility] Comment on above: Result Comment: Canc elled via OM: Order cancelled - Patient discharged Performed By: #### L 500.3600 ####[facility] [address] [place], [address] EST GFR Normal >60 [facility] Comment on above: Result Comment: Canc elled via OM: Order cancelled - Patient discharged Performed By: #### L 500.3600 ####[facility] [address] [place], [address] EST GFR - AA Normal >60 [facility] Comment on above: Result Comment: Canc elled via OM: Order cancelled - Patient discharged Performed By: #### L 500.3600 ####[facility] [address] [place], [address] GLU Normal 74-106 [facility] Comment on above: Result Comment: Canc elled via OM: Order cancelled - Patient discharged Performed By: #### L 500.3600 ####[facility] [address] [place], [address] PHOS Normal 2.5-4.9 [facility] Comment on above: Result Comment: Canc elled via OM: Order cancelled - Patient discharged Performed By: #### L 500.3600 ####[facility] [address] [place], [address] Potassium Normal 3.5-5.1 [facility] Comment on above: Result Comment: Canc elled via OM: Order cancelled - Patient discharged Performed By: #### L 500.3600 ####[facility] [address] [place], [address] Renal Profile Normal 136-145 [facility] Comment on above: Result Comment: Canc elled via OM: Order cancelled - Patient discharged Performed By: #### L 500.3600 ####[facility] [address] [place], [address] TROPONIN Ion 07-27-2024 Troponin I.cardiac [Mass/Vol] 0.017 ng/mL Normal <0.034 [facility] Comment on above: Result Comment: BINA Olivarez COMMENTS:Patients with high levels of Biotin oral intake (ie >5 mg/day) may have falsely decreased Troponin levels. Performed By: #### L [id number] ####De Icer: MARY SOTELO ([id number])[facility] ([facility])[address] [place] [address] US RETROPERITONEUM LIMITEDon 07-27-2024 US RETROPERITONEUM LIMITED Normal [facility] Vitamin D 1,25-Dihydroxyon 0 07-27-2024 VIT D 1,25 DIHY 41.6 pg/mL Normal 24.8-81.5 [facility] Comment on above: Result Comment: Perf ormed at: - [facility] [address] [id number] Director: Rico Lord MD, Phone: [phone] Performed By: #### L 509.1000, L501.9985, L506.1000, L100.0100, L500.4050, L3300.0960 ####[facility] [address] [place], [address] Abdomen Single View (Portabl e)on 07-26-2024 Abdomen Single View (Portable) Normal [facility] BLOOD GAS ARTERIALon 024 Base excess Calc (Bld) [Moles/Vol] -16.57604 mmol/L Low -3.0-3.0 [facility] Comment on above: Performed By: #### L AB76 ####De Icer: MARY SOTELO ([id number])[facility])[address] [place] [address] CO2 [Moles/Vol] 11.7 mmol/L Low 23.0-27.0 [facility] Comment on above: Performed By: #### L AB76 ####De Icer: MARY SOTELO ([id number])[facility] ([facility])[address] [place] [address] HCO3 (Bld) [Moles/Vol] 10.7 mmol/L Low 21.0-25.0 [facility] Comment on above: Performed By: #### L AB76 ####De Icer: MARY SOTELO ([id number])[facility])[address] [place] [address] Hemoglobin (Bld) [Mass/Vol] 8.1 g/dL Normal Screen only [facility] Comment on above: Performed By: #### L AB76 ####De Icer: MARY SOTELO ([id number])[facility])[address] [place] [address] OXYGEN SATURATION (%) IN ARTERIAL BLOOD 94.9 % Low 95.0-100.0 [facility] Comment on above: Performed By: #### L AB76 ####De Icer: MARY SOTELO ([id number])[facility])[address] [place] [address] [place] PCO2 ARTERIAL 30.4 mm Hg Low >35.0-<45.0 [facility] Comment on above: Performed By: #### L AB76 ####De Icer: MARY SOTELO ([id number])[facility] ([facility])[address] [place] [address] PH ARTERIAL 7.166 Critically low 7.350-7.450 [facility] Comment on above: Performed By: #### L AB76 ####De Icer: MARY SOTELO ([id number])[facility] ([facility])[address] [place] [address] PO2 ARTERIAL 95.4 mm Hg Normal 80.0-100.0 [facility] Comment on above: Performed By: #### L AB76 ####De Icer: MARY SOTELO ([id number])[facility] ([facility])[address] [place] [address] SOURCE OF OXYGEN Vent Normal [facility] Comment on above: Performed By: #### L AB76 ####De Icer: MARY SOTELO ([id number])[facility] ([facility])[address] [place] [address] Bedside Glucoseon 07-26-2024 FINGERSTICK GLU 290 mg/dL High 74-106 [facility] Comment on above: Result Comment: SHELLY GEMENT OF PATIENT CARE PER NURSING PROTOCOL Performed By: #### L 501.080 ####[facility] [address] [place] [address] FINGERSTICK GLU 224 mg/dL High 74-106 [facility] Comment on above: Result Comment: SHELLY GEMENT OF PATIENT CARE PER NURSING PROTOCOL Performed By: #### L 501.080 ####[facility] [address] [facility] [address] FINGERSTICK GLU 193 mg/dL High 74-106 [facility] Comment on above: Result Comment: SHELLY GEMENT OF PATIENT CARE PER NURSING PROTOCOL Performed By: #### L 501.080 ####[facility] [address] [place], [address] Blood Gases by [facility] 024 Base excess Calc (Bld) [Moles/Vol] -15 mmol/L Low -2 to +2 [facility] Comment on above: Performed By: #### L 9000.0800 ####[facility] [address] [place], [address] Blood Gas Type ART [facility] Comment on above: Performed By: #### L 9000.0800 ####[facility] [address] [place], [address] CO2 [Moles/Vol] 18 mmol/L [facility] Comment on above: Performed By: #### L 9000.0800 ####[facility] [address] [place], [address] FI02 50.0 [facility] Comment on above: Performed By: #### L 9000.0800 ####[facility] [address] [place], [address] HCO3 (Bld) [Moles/Vol] 16.3 mmol/L Low 22-26 [facility] Comment on above: Performed By: #### L 9000.0800 ####[facility] [address] [place], [address] Mode AC Normal [facility] Comment on above: Performed By: #### L 9000.0800 ####[facility] [address] [place], [address] O2 Delivery Dev Not entered [facility] Comment on above: Performed By: #### L 9000.0800 ####[facility] [address] [place], [address] pCO2 64.6 mmHg High 35-45 [facility] Comment on above: Performed By: #### L 9000.0800 ####[facility] [address] [place], [address] PEEP 5 Normal [facility] Comment on above: Performed By: #### L 9000.0800 ####[facility] [address] [place], [address] pH (Bld) 7.01 [pH] Invalid Interpretation Code 7.35-7.45 [facility] Comment on above: Performed By: #### L 9000.0800 ####[facility] [address] [place], [address] PO2 127 mmHG High 75-100 [facility] Comment on above: Performed By: #### L 9000.0800 ####[facility] [address] [place], [address] Read Back By Yes Normal [facility] Comment on above: Performed By: #### L 9000.0800 ####[facility] [address] [place], [address] Results To brown Normal [facility] Comment on above: Performed By: #### L 9000.0800 ####[facility] [address] [place], [address] RR 16 Normal [facility] Comment on above: Performed By: #### L 9000.0800 ####[facility] [address] [place], [address] SITE R Brach Normal [facility] Comment on above: Performed By: #### L 9000.0800 ####[facility] [address] [place], [address] SO2 96 Normal 95-99 [facility] Comment on above: Performed By: #### L 9000.0800 ####[facility] [address] [place], [address] Time Given 12:36:55 Normal [facility] Comment on above: Performed By: #### L 9000.0800 ####[facility] [address] [place], [address] Vt 400.0 mL Normal [facility] Comment on above: Performed By: #### L 9000.0800 ####[facility] [address] [place], [address] Base excess Calc (Bld) [Moles/Vol] -11 mmol/L Low -2 to +2 [facility] Comment on above: Performed By: #### L 9000.0800 ####[facility] [address] [place], [address] Blood Gas Type ART Normal [facility] Comment on above: Performed By: #### L 9000.0800 ####[facility] [address] [place], [address] CO2 [Moles/Vol] 23 mmol/L Normal [facility] Comment on above: Performed By: #### L 9000.0800 ####[facility] [address] [place], [address] FI02 4.0 Normal [facility] Comment on above: Performed By: #### L 9000.0800 ####[facility] [address] [place], [address] HCO3 (Bld) [Moles/Vol] 20.1 mmol/L Low 22-26 [facility] Comment on above: Performed By: #### L 9000.0800 ####[facility] [address] [place], [address] Mode Not entered Normal [facility] Comment on above: Performed By: #### L 9000.0800 ####[facility] [address] [place], [address] O2 Delivery Dev Not entered [facility] Comment on above: Performed By: #### L 9000.0800 ####[facility] [address] [place], [address] pCO2 82.1 mmHg Invalid Interpretation Code 35-45 [facility] Comment on above: Performed By: #### L 9000.0800 ####[facility] [address] [place], [address] pH (Bld) 7.00 [pH] Invalid Interpretation Code 7.35-7.45 [facility] Comment on above: Performed By: #### L 9000.0800 ####[facility] [address] [place], [address] PO2 119 mmHG High 75-100 [facility] Comment on above: Performed By: #### L 9000.0800 ####[facility] [address] [place], [address] Read Back By Yes [facility] Comment on above: Performed By: #### L 9000.0800 ####[facility] [address] [place], [address] Results To José Miguel [facility] Comment on above: Performed By: #### L 9000.0800 ####[facility] [address] [place], [address] SITE L Radial Normal [facility] Comment on above: Performed By: #### L 9000.0800 ####[facility] [address] [place], [address] SO2 95 Normal 95-99 [facility] Comment on above: Performed By: #### L 9000.0800 ####[facility] [address] [place], [address] Time Given 09:09:17 Normal [facility] Comment on above: Performed By: #### L 9000.0800 ####[facility] [address] [place], [address] Brain/Head without Contrasto n 07-26-2024 Brain/Head without Contrast Normal [facility] Brain/Head without Contrast Normal [facility] CALCIUM, IONIZEDon CALCIUM IONIZED 2.80 mg/dL Low 4.30-5.20 [facility] Comment on above: Performed By: #### L AB54 ####De Icer: MARY SOTELO ([id number])[facility])[address] [place] [address] PH, IONIZED CALCIUM 7.29 Low 7.31-7.46 [facility] Comment on above: Performed By: #### L AB54 ####De Icer: MARY SOTELO ([id number])[facility])[address] [place] [address] CBC WITH AUTO DIFFERENTIALon 07-26-2024 Basophils (Bld) [#/Vol] 0.0 10*3/uL Normal 0.0-0.2 [facility] Comment on above: Performed By: #### L [id number] ####De Icer: MARY SOTELO ([id number])[facility])[address] [place] [address] Basophils/100 WBC (Bld) 0.1 % Normal 0.0-2.0 [facility] Comment on above: Performed By: #### L [id number] ####De Icer: MARY SOTELO ([id number])[facility])[address] [place] [address] Eosinophils (Bld) [#/Vol] 0.0 10*3/uL Normal 0.0-0.5 [facility] Comment on above: Performed By: #### L [id number] ####De Icer: MARY SOTELO ([id number])[facility])[address] [place] [address] [place] Eosinophils/100 WBC (Bld) 0.1 % Normal 0.0-6.0 [facility] Comment on above: Performed By: #### L [id number] ####De Icer: MARY SOTELO ([id number])[facility])[address] [place] [address] Erythrocyte distribution width (RBC) [Ratio] 15.5 % High 11.5-15.0 [facility] Comment on above: Performed By: #### L [id number] ####De Icer: MARY SOTELO ([id number])[facility])[address] [place] [address] Hematocrit (Bld) [Volume fraction] 31.3 % Low 35.0-47.0 [facility] Comment on above: Performed By: #### L [id number] ####De Icer: MARY SOTELO ([id number])[address] Hemoglobin (Bld) [Mass/Vol] 10.1 g/dL Low 11.7-16.0 [facility] Comment on above: Performed By: #### L [id number] ####De Icer: MARY SOTELO ([id number])[facility])[address] [place] [address] IMMATURE GRANS % 0.6 % Normal 0.0-2.0 [facility] Comment on above: Performed By: #### L [id number] ####De Icer: MARY SOTELO ([id number])[facility])[address] [place] [address] IMMATURE GRANS ABSOLUTE 0.1 10*3/uL High <0.1 [facility] Comment on above: Performed By: #### L [id number] ####De Icer: MARY SOTELO ([id number])[address] Lymphocytes (Bld) [#/Vol] 1.2 10*3/uL Normal 1.0-4.3 [facility] Comment on above: Performed By: #### L [id number] ####De Icer: MARY SOTELO ([id number])[facility])[address] [place] [address] Lymphocytes/100 WBC (Bld) 6.2 % Low 15.0-45.0 [facility] Comment on above: Performed By: #### L [id number] ####De Icer: MARY SOTELO ([id number])[facility])[address] [place] [address] MCH (RBC) [Entitic mass] 28.6 pg Normal 26.0-34.0 [facility] Comment on above: Performed By: #### L [id number] ####De Icer: MARY SOTELO ([id number])[facility])[address] [place] [address] MCHC 32.3 % Normal 30.5-36.0 [facility] Comment on above: Performed By: #### L [id number] ####De Icer: MARY SOTELO ([id number])[facility])[address] [place] [address] MCV (RBC) [Entitic vol] 88.7 fL Normal 77.0-99.0 [facility] Comment on above: Performed By: #### L [id number] ####De Icer: MARY SOTELO ([id number])[facility])[address] [place] [address] Monocytes (Bld) [#/Vol] 1.4 10*3/uL High 0.0-0.9 [facility] Comment on above: Performed By: #### L [id number] ####De Icer: MARY SOTELO ([id number])[facility])[address] [place] [address] Monocytes/100 WBC (Bld) 7.2 % Normal 5.0-13.0 [facility] Comment on above: Performed By: #### L [id number] ####De Icer: MARY SOTELO ([id number])[facility] ([facility])[address] [place] [address] NEUTROPHILS ABSOLUTE 16.1 10*3/uL High 1.8-7.5 [facility] Comment on above: Performed By: #### L [id number] ####De Icer: MARY SOTELO ([id number])[facility] ([facility])[address] [place] [address] Neutrophils/100 WBC (Bld) 85.8 % High 38.0-82.0 [facility] Comment on above: Performed By: #### L [id number] ####De Icer: MARY SOTELO ([id number])[facility] ([facility])[address] [place] [address] NRBC 1.1 /100 WBCs Normal 0.0-2.0 [facility] Comment on above: Performed By: #### L [id number] ####De Icer: MARY SOTELO ([id number])[facility] ([facility])[address] [place] [address] Platelet mean volume (Bld) [Entitic vol] 11.0 fL Normal 9.0-12.7 [facility] Comment on above: Performed By: #### L [id number] ####De Icer: MARY SOTELO ([id number])[facility] ([facility])[address] [place] [address] Platelets (Bld) [#/Vol] 244 10*3/uL Normal 140-440 [facility] Comment on above: Performed By: #### L [id number] ####De Icer: MARY SOTELO ([id number])[facility] ([facility])[address] [place] [address] [place] RBC (Bld) [#/Vol] 3.53 10*6/uL Low 3.80-5.20 [facility] Comment on above: Performed By: #### L [id number] ####De Icer: MARY SOTELO ([id number])[facility] ([facility])[address] [place] [address] [place] WBC (Bld) [#/Vol] 18.7 10*3/uL High 3.6-10.7 [facility] Comment on above: Performed By: #### L [id number] ####De Icer: MARY SOTELO ([id number])[facility] ([facility])[address] [place] [address] CBC-Complete Blood Cnt No Di ffon 07-26-2024 Erythrocyte distribution width (RBC) [Ratio] 15.0 % High 11.6-14.6 [facility] Comment on above: Performed By: #### L 100.0500, L500.3600 ####[facility] [address] [place], [address] Hematocrit (Bld) [Volume fraction] 22.7 % Low 37-47 [facility] Comment on above: Performed By: #### L 100.0500, L500.3600 ####[facility] [address] [place], [address] Hemoglobin (Bld) [Mass/Vol] 6.9 g/dL Low 12.0-15.0 [facility] Comment on above: Performed By: #### L 100.0500, L500.3600 ####[facility] [address] [place], [address] MCH (RBC) [Entitic mass] 28.9 pg Normal 27.0-32.0 [facility] Comment on above: Performed By: #### L 100.0500, L500.3600 ####[facility] [address] [place], [address] MCHC (RBC) [Mass/Vol] 30.4 g/dL Low 32-36 [facility] Comment on above: Performed By: #### L 100.0500, L500.3600 ####[facility] [address] [place], [address] MCV (RBC) [Entitic vol] 95.0 fL Normal 81-99 [facility] Comment on above: Performed By: #### L 100.0500, L500.3600 ####[facility] [address] [place], [address] Platelet mean volume (Bld) [Entitic vol] 10.8 fL Normal 6.2-12.0 [facility] Comment on above: Performed By: #### L 100.0500, L500.3600 ####[facility] [address] [place], [address] Platelets (Bld) [#/Vol] 164 10*3/uL Normal 150-450 [facility] Comment on above: Performed By: #### L 100.0500, L500.3600 ####[facility] [address] [place], [address] RBC (Bld) [#/Vol] 2.39 10*6/uL Low 4.2-5.4 [facility] Comment on above: Performed By: #### L 100.0500, L500.3600 ####[facility] [address] [place], [address] RDW SD 52.6 fl High 35.1-43.9 [facility] Comment on above: Performed By: #### L 100.0500, L500.3600 ####[facility] [address] [place], [address] WBC (Bld) [#/Vol] 8.3 10*3/uL Normal 4.4-11.0 [facility] Comment on above: Performed By: #### L 100.0500, L500.3600 ####[facility] [address] [place], [address] COMPREHENSIVE METABOLIC PANE [facility] 07-26-2024 Albumin [Mass/Vol] 2.9 g/dL Low 3.5-5.0 [facility] Comment on above: Performed By: #### L AB17, ESB299, FDL564, [id number], JPD706 ####De Icer: MARY SOTELO ([id number])[facility] ([facility])[address] [place] [address] ALP [Catalytic activity/Vol] 68 U/L Normal 38-126 [facility] Comment on above: Performed By: #### L AB17, UXJ584, FNZ553, [id number], IOO805 ####De Icer: MARY SOTELO ([id number])[facility] ([facility])[address] [place] [address] ALT [Catalytic activity/Vol] 21 U/L Normal 0-34 [facility] Comment on above: Performed By: #### L AB17, AMY141, HOR745, [id number], IJD426 ####De Icer: MARY SOTELO ([id number])[facility] ([facility])[address] [place] [address] Anion gap [Moles/Vol] 10 mmol/L Normal 3-13 [facility] Comment on above: Performed By: #### L AB17, MSQ742, BXQ246, [id number], GYC990 ####De Icer: MARY SOTELO ([id number])[facility] ([facility])[address] [place] [address] AST [Catalytic activity/Vol] 40 U/L Normal 15-46 [facility] Comment on above: Performed By: #### L AB17, RQV336, MSS711, [id number], NGB118 ####De Icer: MARY SOTELO ([id number])[facility] ([facility])[address] [place] [address] Bilirubin [Mass/Vol] 0.5 mg/dL Normal 0.2-1.3 [facility] Comment on above: Performed By: #### L AB17, IRM501, APA393, [id number], HPB998 ####De Icer: MARY SOTELO ([id number])[facility] ([facility])[address] [place] [address] Calcium [Mass/Vol] 5.5 mg/dL Critically low 8.4-10.4 [facility] Comment on above: Performed By: #### L AB17, ALE774, LZP403, [id number], NAE165 ####De Icer: MARY SOTELO ([id number])[facility] ([facility])[address] [place] [address] Chloride [Moles/Vol] 98 mmol/L Normal 98-107 [facility] Comment on above: Performed By: #### L AB17, RKU552, EZI668, [id number], WKI770 ####De Icer: MARY SOTELO ([id number])[facility] [place] [address] CO2 [Moles/Vol] 17 mmol/L Low 22-30 [facility] Comment on above: Performed By: #### L AB17, YWA372, ARX319, [id number], OVY201 ####De Icer: MARY SOTELO ([id number])[facility] [place] [address] Creatinine [Mass/Vol] 4.56 mg/dL High 0.52-1.04 [facility] Comment on above: Performed By: #### L AB17, OHZ769, BXE419, [id number], AYN344 ####De Icer: MARY SOTELO ([id number])[facility] ([facility])[address] [place] [address] GLOMERULAR FILTRATION RATE ML/MIN/1.73 SQ M.PREDICTED 10.2 mL/min/1.73m*2 Low >60.0 [facility] Comment on above: Result Comment: Calc ulation based on the Chronic Kidney Disease Epidemiology Collaboration (CKD-EPI) equation refit without adjustment for race Performed By: #### L AB17, XOX521, ZPQ844, [id number], YPR921 ####De Icer: MARY SOTELO ([id number])[facility] [place] [address] Glucose [Mass/Vol] 252 mg/dL High 70-100 [facility] Comment on above: Performed By: #### L AB17, UHE471, CCG138, [id number], UTA339 ####De Icer: MARY SOTELO ([id number])[facility] ([facility])[address] [place] [address] Potassium [Moles/Vol] 5.5 mmol/L High 3.5-5.1 [facility] Comment on above: Performed By: #### L AB17, HPN642, CLD577, [id number], ABT195 ####De Icer: MARY SOTLEO ([id number])[facility] ([facility])[address] [place] [address] Protein [Mass/Vol] 5.5 g/dL Low 6.3-8.2 [facility] Comment on above: Performed By: #### L AB17, UTJ464, GRU592, [id number], HEG520 ####De Icer: MARY SOTELO ([id number])[facility] ([facility])[address] [place] [address] Sodium [Moles/Vol] 125 mmol/L Low 135-145 [facility] Comment on above: Performed By: #### L AB17, AKW144, JBU720, [id number], EET295 ####De Icer: MARY SOTELO ([id number])[facility] [place] [address] Urea nitrogen [Mass/Vol] 76 mg/dL High 7-17 [facility] Comment on above: Performed By: #### L AB17, VFD797, HQB634, [id number], KIC814 ####De Icer: MARY SOTELO ([id number])[facility] ([facility])[address] [place] [address] [place] CPK Total, Creatine Kinaseon 07-26-2024 CPK TOTAL 1209 U/L High 26-192 [facility] Comment on above: Order Comment: Comme nts: DC when propofol is d/c'dDC when propofol is d/c'd Performed By: #### L 501.3620, L501.5000 ####[facility] [address] [place], [address] CREATININE, URINE, RANDOMon 07-26-2024 CREATININE, URINE 96.9 mg/dL Normal No Range [facility] Comment on above: Performed By: #### L AB444, AGF706, OWQ642 ####De Icer: MARY SOTELO ([id number])[facility] ([facility])[address] [place] [address] CT CERVICAL SPINE WO IV CONT RASTon 07-26-2024 CT CERVICAL SPINE WO IV CONTRAST Normal [facility] CT HEAD WO IV CONTRASTon CT HEAD WO IV CONTRAST Normal [facility] CXR for Line Placementon CXR for Line Placement Normal [facility] Chest 1 View (Portable)on Chest 1 View (Portable) Normal [facility] Consulton 07-26-2024 Consult Normal [facility] Consultation - Intensiviston 07-26-2024 Consultation - Web Press Jogger Normal [facility] HEMOGLOBIN A1Con 07-26-2024 Glucose [Mass/Vol] 131 mg/dL Normal [facility] Comment on above: Order Comment: If no t done within the last 3 mos Performed By: #### L AB90 ####De Icer: MARY SOTELO ([id number])[facility] ([facility])[address] [place] [address] HbA1c (Bld) [Mass fraction] 6.2 % High <5.7 [facility] Comment on above: Order Comment: If no t done within the last 3 mos Result Comment: Norm al less than 5.7%Prediabetes 5.7% to 6.4%Diabetes 6.5% or higher--HgbA1C levels may not be accurate in patients who have renal disease, received recent blood transfusions, are anemic, or who have dyshemoglobinemia. Performed By: #### L AB90 ####De Icer: MARY SOTELO ([id number])[facility] ([facility])[address] [place] [address] LACTIC ACID WITH REFLEXon Lactate [Moles/Vol] 0.9 mmol/L Normal 0.7-2.0 [facility] Comment on above: Performed By: #### L [id number] ####De Icer: MARY SOTELO ([id number])[facility])[address] [place] [address] LEGIONELLA AND STREPTOCOCCUS URINE ANTIGENon 07-26-2024 LEGIONELLA AND STREPTOCOCCUS URINE ANTIGEN Normal [facility] Comment on above: Performed By: #### L [id number] ####De Icer: MARY SOTELO ([id number])[facility])[address] [place] [address] MAGNESIUMon 07-26-2024 Magnesium [Mass/Vol] 1.5 mg/dL Low 1.6-2.3 [facility] Comment on above: Performed By: #### L AB17, MFJ849, HDS034, [id number], HRE807 ####De Icer: MARY SOTELO ([id number])[facility])[address] [place] [address] MR/CON.PCM.NEon 07-26-2024 MR/CON.PCM.NE Normal [facility] OSMOLALITY, SERUMon 07-26-20 24 OSMOLALITY, SERUM 309 mOsm/kg High 280-300 [facility] Comment on above: Performed By: #### L AB107 ####De Icer: MARY SOTELO ([id number])[facility])[address] [place] [address] OSMOLALITY, URINEon 07-26-20 24 OSMOLALITY, URINE 316 mOsm/kg Normal 300-1000 [facility] Comment on above: Performed By: #### L AB444, WWR183, KOH945 ####De Icer: MARY SOTELO ([id number])[facility])[address] [place] [address] PHOSPHORUSon 07-26-2024 Phosphate [Mass/Vol] 8.5 mg/dL High 2.5-4.5 [facility] Comment on above: Performed By: #### L AB17, AZS890, PDA861, [id number], PPX399 ####De Icer: MARY SOTELO ([id number])[facility] [place] [address] [place] PROCALCITONIN TESTon 024 PROCALCITONIN 2.48 ng/mL High 0.00-0.09 [facility] Comment on above: Result Comment: ORDE R COMMENTS:PCT <0.50 = Low risk of severe sepsis and/or septic shock.PCT >2.00 = High risk of severe sepsis and/or septic shock. Performed By: #### L [id number] ####De Icer: MARY SOTELO ([id number])[facility] ([facility])[address] [place] [address] Partial Thromboplast Timeon 07-26-2024 aPTT Coag (Bld) [Time] 33.7 s Normal 24.1-36.2 [facility] Comment on above: Performed By: #### L 300.4310, L300.3900 ####[facility] [address] [facility] [id number] Procedure Reporton Procedure Report Normal [facility] Procedure Report Normal [facility] Prothrombin Time w/INRon INR Coag (PPP) [Relative time] 1.3 {INR} Normal [facility] Comment on above: Performed By: #### L 300.4310, L300.3900 ####[facility] [address] [facility] [address] PT Coag (PPP) [Time] 15.7 s High 11.7-14.9 [facility] Comment on above: Performed By: #### L 300.4310, L300.3900 ####[facility] [address] [place], [address] Renal Profileon 07-26-2024 Albumin [Mass/Vol] 2.4 g/dL Low 3.2-5.0 [facility] Comment on above: Performed By: #### L 100.0500, L500.3600 ####[facility] [address] [place], [address] BUN/CRE 15.4 RATIO Normal 10-20 [facility] Comment on above: Performed By: #### L 100.0500, L500.3600 ####[facility] [address] [place], [address] CA,Total 5.5 mg/dL Invalid Interpretation Code 8.5-10.1 [facility] Comment on above: Result Comment: Crit ical Result(s) Called at: 03:18:33 07/26/2024 by:Ana Rosa Andrew to [facility]. Results read back by same. Performed By: #### L 100.0500, L500.3600 ####[facility] [address] [place], [address] Chloride [Moles/Vol] 100 mmol/L Normal 98-107 [facility] Comment on above: Performed By: #### L 100.0500, L500.3600 ####[facility] [address] [place], [address] CO2 [Moles/Vol] 20.0 mmol/L Low 21.0-32.0 [facility] Comment on above: Performed By: #### L 100.0500, L500.3600 ####[facility] [address] [place], [address] Creatinine [Mass/Vol] 3.84 mg/dL High 0.55-1.02 [facility] Comment on above: Result Comment: The validity of the calculated GFR GFRAA in patients over70 years has not been determined. Clinical correlation isessential. Performed By: #### L 100.0500, L500.3600 ####[facility] [address] [place], [address] ECRCL 11.26 ml/min Normal [facility] Comment on above: Performed By: #### L 100.0500, L500.3600 ####[facility] [address] [place], [address] EST GFR - AA 15 mL/min Low >60 [facility] Comment on above: Result Comment: Afri can Nauruan GFR Calc Performed By: #### L 100.0500, L500.3600 ####[facility] [address] [place], [address] GFR/1.73 sq M.predicted among non-blacks MDRD (S/P/Bld) [Vol rate/Area] 13 mL/min/{1.73_m2} Low >60 [facility] Comment on above: Result Comment: Non- GFR Calc Performed By: #### L 100.0500, L500.3600 ####[facility] [address] [place], [address] Glucose [Mass/Vol] 167 mg/dL High 74-106 [facility] Comment on above: Result Comment: Fast ing Glucose result greater than or equal to 126 mg/dLsuggests DIABETES MELLITUS per A.D.A. criteria. Performed By: #### L 100.0500, L500.3600 ####[facility] [address] [place], [address] Phosphate [Mass/Vol] 7.0 mg/dL High 2.5-4.9 [facility] Comment on above: Performed By: #### L 100.0500, L500.3600 ####[facility] [address] [place], [address] Potassium [Moles/Vol] 5.6 mmol/L High 3.5-5.1 [facility] Comment on above: Performed By: #### L 100.0500, L500.3600 ####[facility] [address] [place], [address] Sodium [Moles/Vol] 131 mmol/L Low 136-145 [facility] Comment on above: Performed By: #### L 100.0500, L500.3600 ####[facility] [address] [place], [address] Urea nitrogen [Mass/Vol] 59 mg/dL High 7-18 [facility] Comment on above: Performed By: #### L 100.0500, L500.3600 ####[facility] [address] [place], [address] SODIUM, URINE, RANDOMon 07-05 Sodium (U) [Moles/Vol] 31 mmol/L Normal 30-90 [facility] Comment on above: Performed By: #### L AB444, VHR827, DQI345 ####De Icer: MARY SOTELO ([id number])[facility] ([facility])[address] [place] [address] [place] THYROID STIMULATING HORMONEo n 07-26-2024 THYROID STIMULATING HORMONE 3.472 uIU/mL Normal 0.465-4.680 [facility] Comment on above: Performed By: #### L AB17, NQX593, SZL227, [id number], KIY715 ####De Icer: MARY SOTELO ([id number])[facility] ([facility])[address] [place] [address] [place] TROPONIN Ion 07-26-2024 Troponin I.cardiac [Mass/Vol] 0.014 ng/mL Normal <0.034 [facility] Comment on above: Result Comment: ORDE R COMMENTS:Patients with high levels of Biotin oral intake (ie >5 mg/day) may have falsely decreased Troponin levels. Performed By: #### L AB747 ####De Icer: MARY SOTELO ([id number])[facility] ([facility])[address] [place] [address] [place] TROPONIN, WITH SERIAL REFLEX on 07-26-2024 Troponin I.cardiac [Mass/Vol] 0.013 ng/mL Normal <0.034 [facility] Comment on above: Result Comment: ORDE R COMMENTS:Patients with high levels of Biotin oral intake (ie >5 mg/day) may have falsely decreased Troponin levels. Performed By: #### L AB17, HMT495, PKH759, [id number], KAG558 ####De Icer: MARY SOTELO ([id number])[facility] ([address] Triglycerideson 07-26-2024 Triglyceride [Mass/Vol] 103 mg/dL Normal [facility] Comment on above: Order Comment: Comme nts: DC when propofol is d/c'dDC when propofol is d/c'd Result Comment: The drugs N-Acetylcysteine and Metamizole may falselydepress this assay.Serum Triglycerides Reference Interval Normal <150 mg/dL Borderline high 150 - 199 mg/dL High 200 - 499 mg/dL Very High > or = 500 mg/dL Performed By: #### L 501.3620, L501.5000 ####[facility] [address] [place], [place], [address] XR ABDOMEN 1 VIEWon 07-26-20 24 XR ABDOMEN 1 VIEW Normal [facility] XR CHEST 1 VIEWon 07-26-2024 XR CHEST 1 VIEW [facility] Basic Metabolic Profile (BMP )on 07-25-2024 BUN/CRE 13.8 RATIO Normal 10-20 [facility] Comment on above: Performed By: #### L 500.2500 ####[facility] [address] [place], [address] CA,Total 5.7 mg/dL Invalid Interpretation Code 8.5-10.1 [facility] Comment on above: Result Comment: Crit ical Result(s) Called at: 07:31:06 07/25/2024 by: Hannah Velazquez RN ([facility]). Results read back by same. Performed By: #### L 500.2500 ####[facility] [address] [place], [address] Chloride [Moles/Vol] 97 mmol/L Low 98-107 [facility] Comment on above: Performed By: #### L 500.2500 ####[facility] [address] [place], [address] CO2 [Moles/Vol] 23.0 mmol/L Normal 21.0-32.0 [facility] Comment on above: Performed By: #### L 500.2500 ####[facility] [address] [place], [address] Creatinine [Mass/Vol] 3.77 mg/dL High 0.55-1.02 [facility] Comment on above: Result Comment: The validity of the calculated GFR GFRAA in patients over70 years has not been determined. Clinical correlation isessential. Performed By: #### L 500.2500 ####[facility] [address] [place], [address] ECRCL 11.47 ml/min Normal [facility] Comment on above: Performed By: #### L 500.2500 ####[facility] [address] [place], [address] EST GFR - AA 16 mL/min Low >60 [facility] Comment on above: Result Comment: Afri can Nauruan GFR Calc Performed By: #### L 500.2500 ####[facility] [address] [place], [address] GAP 10 Normal 5-15 [facility] Comment on above: Performed By: #### L 500.2500 ####[facility] [address] [place], [address] GFR/1.73 sq M.predicted among non-blacks MDRD (S/P/Bld) [Vol rate/Area] 13 mL/min/{1.73_m2} Low >60 [facility] Comment on above: Result Comment: Non- GFR Calc Performed By: #### L 500.2500 ####[facility] [address] [place], [address] Glucose [Mass/Vol] 275 mg/dL High 74-106 [facility] Comment on above: Result Comment: Gluc ose result greater than or equal to 200 mg/dLsuggests DIABETES MELLITUS per A.D.A. criteria. Performed By: #### L 500.2500 ####[facility] [address] [place], [address] Potassium [Moles/Vol] 5.1 mmol/L Normal 3.5-5.1 [facility] Comment on above: Performed By: #### L 500.2500 ####[facility] [address] [place], [address] Sodium [Moles/Vol] 130 mmol/L Low 136-145 [facility] Comment on above: Performed By: #### L 500.2500 ####[facility] [address] [place], [address] Urea nitrogen [Mass/Vol] 52 mg/dL High 7-18 [facility] Comment on above: Performed By: #### L 500.2500 ####[facility] [address] [place], [address] Bedside Glucoseon 07-25-2024 FINGERSTICK GLU 249 mg/dL High -106 [facility] Comment on above: Result Comment: SHELLY GEMENT OF PATIENT CARE PER NURSING PROTOCOL Performed By: #### L 501.080 ####[facility] [address] [place], [address] FINGERSTICK GLU 140 mg/dL High 74-106 [facility] Comment on above: Result Comment: SHELLY GEMENT OF PATIENT CARE PER NURSING PROTOCOL Performed By: #### L 501.080 ####[facility] [address] [place], [address] FINGERSTICK GLU 270 mg/dL High 74-106 [facility] Comment on above: Result Comment: SHELLY GEMENT OF PATIENT CARE PER NURSING PROTOCOL Performed By: #### L 501.080 ####[facility] [address] [place], [address] CBC W/Diff, Automatedon 09-2 Absolute Lymph 1.26 X10 3/uL Normal 0.83-4.51 [facility] Comment on above: Performed By: #### L 100.0100 ####[facility] [address] [place], [address] Absolute Neut 7.1 X10 3/uL Normal 2.0-7.7 [facility] Comment on above: Performed By: #### L 100.0100 ####[facility] [address] [place], [address] Basophils/100 WBC (Bld) 0.2 % Normal 0-1 [facility] Comment on above: Performed By: #### L 100.0100 ####[facility] [address] [place], [address] Eosinophils/100 WBC (Bld) 0.6 % Normal 0-5 [facility] Comment on above: Performed By: #### L 100.0100 ####[facility] [address] [place], [address] Erythrocyte distribution width (RBC) [Ratio] 15.1 % High 11.6-14.6 [facility] Comment on above: Performed By: #### L 100.0100 ####[facility] [address] [place], [address] Hematocrit (Bld) [Volume fraction] 26.8 % Low 37-47 [facility] Comment on above: Performed By: #### L 100.0100 ####[facility] [address] [place], [address] Hemoglobin (Bld) [Mass/Vol] 8.0 g/dL Low 12.0-15.0 [facility] Comment on above: Performed By: #### L 100.0100 ####[facility] [address] [place], [address] IG% 0.800 Normal 0.0-0.9 [facility] Comment on above: Result Comment: IG% - Immature Granulocytes (promyelocytes, myelocytes andmetamyelocytes) > 1% indicates that a LEFT SHIFT is Present. Performed By: #### L 100.0100 ####[facility] [address] [place], [address] Lymphocytes/100 WBC (Bld) 13.5 % Low 19-41 [facility] Comment on above: Performed By: #### L 100.0100 ####[facility] [address] [place], [address] MCH (RBC) [Entitic mass] 28.5 pg Normal 27.0-32.0 [facility] Comment on above: Performed By: #### L 100.0100 ####[facility] [address] [place], [address] MCHC (RBC) [Mass/Vol] 29.9 g/dL Low 32-36 [facility] Comment on above: Performed By: #### L 100.0100 ####[facility] [address] [place], [address] MCV (RBC) [Entitic vol] 95.4 fL Normal 81-99 [facility] Comment on above: Performed By: #### L 100.0100 ####[facility] [address] [place], [address] Monocytes/100 WBC (Bld) 9.1 % Normal 0-10 [facility] Comment on above: Performed By: #### L 100.0100 ####[facility] [address] [place], [address] Neutrophils/100 WBC (Bld) 75.8 % High 47-70 [facility] Comment on above: Performed By: #### L 100.0100 ####[facility] [address] [place], [address] Nucleated RBC (Bld) [#/Vol] 0.3 10*3/uL Normal 0-5 [facility] Comment on above: Performed By: #### L 100.0100 ####[facility] [address] [place], [address] Platelet mean volume (Bld) [Entitic vol] 11.0 fL Normal 6.2-12.0 [facility] Comment on above: Performed By: #### L 100.0100 ####[facility] [address] [place], [address] Platelets (Bld) [#/Vol] 204 10*3/uL Normal 150-450 [facility] [facility] Comment on above: Performed By: #### L 100.0100 ####[facility] [address] [place], [address] RBC (Bld) [#/Vol] 2.81 10*6/uL Low 4.2-5.4 [facility] Comment on above: Performed By: #### L 100.0100 ####[facility] [address] [place], [address] RDW SD 53.3 fl High 35.1-43.9 [facility] Comment on above: Performed By: #### L 100.0100 ####[facility] [address] [place], [address] WBC (Bld) [#/Vol] 9.3 10*3/uL Normal 4.4-11.0 [facility] Comment on above: Performed By: #### L 100.0100 ####[facility] [address] [place], [address] HH, Hemoglobin AND Hematocri ton 07-25-2024 Hematocrit (Bld) [Volume fraction] 28.5 % Low 37-47 [facility] Comment on above: Performed By: #### L 100.0600 ####[facility] [address] [place], [address] Hemoglobin (Bld) [Mass/Vol] 8.7 g/dL Low 12.0-15.0 [facility] Comment on above: Performed By: #### L 100.0600 ####[facility] [address] [place], [address] 12 Lead EKGon 07-24-2024 12 Lead EKG Normal [facility] BNP,B-Type NATRIURETIC PEPTI Rinku 07-24-2024 Natriuretic peptide B (Bld) [Mass/Vol] 2478.5 pg/mL High 0-100 [facility] Comment on above: Performed By: #### L 503.6030, L501.2300, L501.3620, L509.7000, L101.9900, L501.5200, L503.6550, L501.6710, L503.6620, L300.8000, L504.2610 ####[facility] [address] [place], [address] Basic Metabolic Profile (BMP )on 07-24-2024 BUN Normal 7-18 [facility] Comment on above: Result Comment: Heena garcia via OM: Order edited - Discontinuing original order Performed By: #### L 500.2500 ####[facility] [address] [place], [address] BUN/CRE Normal 10-20 [facility] Comment on above: Result Comment: Heena garcia via OM: Order edited - Discontinuing original order Performed By: #### L 500.2500 ####[facility] [address] [place], [address] CA,Total Normal 8.5-10.1 [facility] Comment on above: Result Comment: Canc elled via OM: Order edited - Discontinuing original order Performed By: #### L 500.2500 ####[facility] [address] [place], [address] CL Normal 98-107 [facility] Comment on above: Result Comment: Canc elled via OM: Order edited - Discontinuing original order Performed By: #### L 500.2500 ####[facility] [address] [place], [address] CO2 Normal 21.0-32.0 [facility] Comment on above: Result Comment: Canc elled via OM: Order edited - Discontinuing original order Performed By: #### L 500.2500 ####[facility] [address] [place], [address] CREAT,SERUM Normal 0.55-1.02 [facility] Comment on above: Result Comment: Canc elled via OM: Order edited - Discontinuing original order Performed By: #### L 500.2500 ####[facility] [address] [place], [address] EST GFR Normal >60 [facility] Comment on above: Result Comment: Canc elled via OM: Order edited - Discontinuing original order Performed By: #### L 500.2500 ####[facility] [address] [place], [address] EST GFR - AA Normal >60 [facility] Comment on above: Result Comment: Canc elled via OM: Order edited - Discontinuing original order Performed By: #### L 500.2500 ####[facility] [address] [place], [address] GAP Normal 5-15 [facility] Comment on above: Result Comment: Canc elled via OM: Order edited - Discontinuing original order Performed By: #### L 500.2500 ####[facility] [address] [place], [address] GLU Normal 74-106 [facility] Comment on above: Result Comment: Canc elled via OM: Order edited - Discontinuing original order Performed By: #### L 500.2500 ####[facility] [address] [place], [address] Potassium Normal 3.5-5.1 [facility] Comment on above: Result Comment: Canc elled via OM: Order edited - Discontinuing original order Performed By: #### L 500.2500 ####[facility] [address] [place], [address] Basic Metabolic Profile (BMP) Normal 136-145 [facility] Comment on above: Result Comment: Canc elled via OM: Order edited - Discontinuing original order Performed By: #### L 500.2500 ####[facility] [address] [place], [address] BUN/CRE 14.2 RATIO Normal 10-20 [facility] Comment on above: Performed By: #### L 500.2500 ####[facility] [address] [place], [address] CA,Total 5.5 mg/dL Invalid Interpretation Code 8.5-10.1 [facility] Comment on above: Performed By: #### L 500.2500 ####[facility] [address] [place], [address] Chloride [Moles/Vol] 103 mmol/L Normal 98-107 [facility] Comment on above: Performed By: #### L 500.2500 ####[facility] [address] [place], [address] CO2 [Moles/Vol] 24.0 mmol/L Normal 21.0-32.0 [facility] Comment on above: Performed By: #### L 500.2500 ####[facility] [address] [place], [address] Creatinine [Mass/Vol] 3.65 mg/dL High 0.55-1.02 [facility] Comment on above: Result Comment: The validity of the calculated GFR GFRAA in patients over70 years has not been determined. Clinical correlation isessential. Performed By: #### L 500.2500 ####[facility] [address] [place], [address] ECRCL 11.92 ml/min Normal [facility] Comment on above: Performed By: #### L 500.2500 ####[facility] [address] [place], [address] EST GFR - AA 16 mL/min Low >60 [facility] Comment on above: Result Comment: Afri can Nauruan GFR Calc Performed By: #### L 500.2500 ####[facility] [address] [place], [address] GAP 8 Normal 5-15 [facility] Comment on above: Performed By: #### L 500.2500 ####[facility] [address] [place], [address] GFR/1.73 sq M.predicted among non-blacks MDRD (S/P/Bld) [Vol rate/Area] 13 mL/min/{1.73_m2} Low >60 [facility] Comment on above: Result Comment: Non- GFR Calc Performed By: #### L 500.2500 ####[facility] [address] [place], [address] Glucose [Mass/Vol] 215 mg/dL High 74-106 [facility] Comment on above: Result Comment: Gluc ose result greater than or equal to 200 mg/dLsuggests DIABETES MELLITUS per A.D.A. criteria. Performed By: #### L 500.2500 ####[facility] [address] [place], [address] Potassium [Moles/Vol] 5.2 mmol/L High 3.5-5.1 [facility] Comment on above: Performed By: #### L 500.2500 ####[facility] [address] [place], [address] Sodium [Moles/Vol] 135 mmol/L Low 136-145 [facility] Comment on above: Performed By: #### L 500.2500 ####[facility] [address] [place], [address] Urea nitrogen [Mass/Vol] 52 mg/dL High 7-18 [facility] Comment on above: Performed By: #### L 500.2500 ####[facility] [address] [place], [address] Bedside Glucoseon 07-24-2024 FINGERSTICK GLU 239 mg/dL High 74-106 [facility] Comment on above: Result Comment: SHELLY GEMENT OF PATIENT CARE PER NURSING PROTOCOL Performed By: #### L 501.080 ####[facility] [address] [place], [address] FINGERSTICK GLU 281 mg/dL High 74-106 [facility] Comment on above: Result Comment: SHELLY GEMENT OF PATIENT CARE PER NURSING PROTOCOL Performed By: #### L 501.080 ####[facility] [address] [place], [address] FINGERSTICK GLU 287 mg/dL High 74-106 [facility] Comment on above: Result Comment: SHELLY GEMENT OF PATIENT CARE PER NURSING PROTOCOL Performed By: #### L 501.080 ####[facility] [address] [place], [address] FINGERSTICK GLU 193 mg/dL High 74-106 [facility] Comment on above: Result Comment: SHELLY GEMENT OF PATIENT CARE PER NURSING PROTOCOL Performed By: #### L 501.080 ####[facility] [address] [place], [address] FINGERSTICK GLU 337 mg/dL High 74-106 [facility] Comment on above: Result Comment: SHELLY GEMENT OF PATIENT CARE PER NURSING PROTOCOL Performed By: #### L 501.080 ####[facility] [address] [place], [address] FINGERSTICK GLU 177 mg/dL High 74-106 [facility] Comment on above: Result Comment: SHELLY GEMENT OF PATIENT CARE PER NURSING PROTOCOL Performed By: #### L 501.080 ####[facility] [address] [place], [address] FINGERSTICK GLU 225 mg/dL High 74-106 [facility] Comment on above: Result Comment: SHELLY GEMENT OF PATIENT CARE PER NURSING PROTOCOL Performed By: #### L 501.080 ####[facility] [address] [place], [address] CBC W/Diff, Automatedon 07-05 Absolute Lymph 0.47 X10 3/uL Low 0.83-4.51 [facility] Comment on above: Performed By: #### L 509.1000, L501.9985, L506.1000, L100.0100, L500.4050, L3300.0960 ####[facility] [address] [place], [address] Absolute Neut 6.3 X10 3/uL Normal 2.0-7.7 [facility] Comment on above: Performed By: #### L 509.1000, L501.9985, L506.1000, L100.0100, L500.4050, L3300.0960 ####[facility] [address] [place], [address] Basophils/100 WBC (Bld) 0.7 % Normal 0-1 [facility] Comment on above: Performed By: #### L 509.1000, L501.9985, L506.1000, L100.0100, L500.4050, L3300.0960 ####[facility] [address] [place], [address] Eosinophils/100 WBC (Bld) 1.6 % Normal 0-5 [facility] Comment on above: Performed By: #### L 509.1000, L501.9985, L506.1000, L100.0100, L500.4050, L3300.0960 ####[facility] [address] [place], [address] Erythrocyte distribution width (RBC) [Ratio] 14.9 % High 11.6-14.6 [facility] Comment on above: Performed By: #### L 509.1000, L501.9985, L506.1000, L100.0100, L500.4050, L3300.0960 ####[facility] [address] [place], [address] Hematocrit (Bld) [Volume fraction] 29.4 % Low 37-47 [facility] Comment on above: Performed By: #### L 509.1000, L501.9985, L506.1000, L100.0100, L500.4050, L3300.0960 ####[facility] [address] [place], [address] Hemoglobin (Bld) [Mass/Vol] 8.6 g/dL Low 12.0-15.0 [facility] Comment on above: Performed By: #### L 509.1000, L501.9985, L506.1000, L100.0100, L500.4050, L3300.0960 ####[facility] [address] [place], [address] IG% 2.100 High 0.0-0.9 [facility] Comment on above: Result Comment: IG% - Immature Granulocytes (promyelocytes, myelocytes andmetamyelocytes) > 1% indicates that a LEFT SHIFT is Present. Performed By: #### L 509.1000, L501.9985, L506.1000, L100.0100, L500.4050, L3300.0960 ####[facility] [address] [place], [address] Lymphocytes/100 WBC (Bld) 6.5 % Low 19-41 [facility] Comment on above: Performed By: #### L 509.1000, L501.9985, L506.1000, L100.0100, L500.4050, L3300.0960 ####[facility] [address] [place], [address] MCH (RBC) [Entitic mass] 28.2 pg Normal 27.0-32.0 [facility] Comment on above: Performed By: #### L 509.1000, L501.9985, L506.1000, L100.0100, L500.4050, L3300.0960 ####[facility] [address] [place], [address] MCHC (RBC) [Mass/Vol] 29.3 g/dL Low 32-36 [facility] Comment on above: Performed By: #### L 509.1000, L501.9985, L506.1000, L100.0100, L500.4050, L3300.0960 ####[facility] [address] [place], [address] MCV (RBC) [Entitic vol] 96.4 fL Normal 81-99 [facility] Comment on above: Performed By: #### L 509.1000, L501.9985, L506.1000, L100.0100, L500.4050, L3300.0960 ####[facility] [address] [place], [address] Monocytes/100 WBC (Bld) 2.2 % Normal 0-10 [facility] Comment on above: Performed By: #### L 509.1000, L501.9985, L506.1000, L100.0100, L500.4050, L3300.0960 ####[facility] [address] [place], [address] Neutrophils/100 WBC (Bld) 86.9 % High 47-70 [facility] Comment on above: Performed By: #### L 509.1000, L501.9985, L506.1000, L100.0100, L500.4050, L3300.0960 ####[facility] [address] [place], [address] Nucleated RBC (Bld) [#/Vol] 0.3 10*3/uL Normal 0-5 [facility] Comment on above: Performed By: #### L 509.1000, L501.9985, L506.1000, L100.0100, L500.4050, L3300.0960 ####[facility] [address] [place], [address] Platelet mean volume (Bld) [Entitic vol] 10.3 fL Normal 6.2-12.0 [facility] Comment on above: Performed By: #### L 509.1000, L501.9985, L506.1000, L100.0100, L500.4050, L3300.0960 ####[facility] [address] [place], [address] Platelets (Bld) [#/Vol] 196 10*3/uL Normal 150-450 [facility] Comment on above: Performed By: #### L 509.1000, L501.9985, L506.1000, L100.0100, L500.4050, L3300.0960 ####[facility] [address] [place], [address] RBC (Bld) [#/Vol] 3.05 10*6/uL Low 4.2-5.4 [facility] Comment on above: Performed By: #### L 509.1000, L501.9985, L506.1000, L100.0100, L500.4050, L3300.0960 ####[facility] [address] [place], [address] RDW SD 52.3 fl High 35.1-43.9 [facility] Comment on above: Performed By: #### L 509.1000, L501.9985, L506.1000, L100.0100, L500.4050, L3300.0960 ####[facility] [address] [place], [address] WBC (Bld) [#/Vol] 7.3 10*3/uL Normal 4.4-11.0 [facility] Comment on above: Performed By: #### L 509.1000, L501.9985, L506.1000, L100.0100, L500.4050, L3300.0960 ####[facility] [address] [place], [address] CPK Total, Creatine Kinaseon 07-24-2024 CPK TOTAL 604 U/L High 26-192 [facility] Comment on above: Order Comment: Comme nts: May add to ED labsComments: add to ED labsComments: may add to ED labsmay add to ED labs Performed By: #### L 503.6030, L501.2300, L501.3620, L509.7000, L101.9900, L501.5200, L503.6550, L501.6710, L503.6620, L300.8000, L504.2610 ####[facility] [address] [place], [address] CRPon 07-24-2024 C-REACTIVE PROT 62.00 mg/L High 0.0-3.0 [facility] Comment on above: Order Comment: Comme [...] L501.2300, L501.3620, L509.7000, L101.9900, L501.5200, L503.6550, L501.6710, L503.6620, L300.8000, L504.2610 ####[facility] [address] [place], [address] Calcium, Urine (Random)on Calcium Ur Wheatcroft < 5.0 Normal Not Estab. [facility] Comment on above: Performed By: #### L 501.2240 ####[facility] [address] [place], [address] Comprehensive Metabolic Prof ilon 07-24-2024 Albumin [Mass/Vol] 2.9 g/dL Low 3.2-5.0 [facility] Comment on above: Performed By: #### L 509.1000, L501.9985, L506.1000, L100.0100, L500.4050, L3300.0960 ####[facility] [address] [place], [address] Albumin/Globulin [Mass ratio] 0.7 {ratio} Low 0.9-2.4 [facility] Comment on above: Performed By: #### L 509.1000, L501.9985, L506.1000, L100.0100, L500.4050, L3300.0960 ####[facility] [address] [place], [address] ALK P 78 U/L Normal 45-117 [facility] Comment on above: Performed By: #### L 509.1000, L501.9985, L506.1000, L100.0100, L500.4050, L3300.0960 ####[facility] [address] [place], [address] ALT [Catalytic activity/Vol] 17 U/L Normal 13-56 [facility] Comment on above: Performed By: #### L 509.1000, L501.9985, L506.1000, L100.0100, L500.4050, L3300.0960 ####[facility] [address] [place], [address] AST [Catalytic activity/Vol] 18 U/L Normal 15-37 [facility] Comment on above: Performed By: #### L 509.1000, L501.9985, L506.1000, L100.0100, L500.4050, L3300.0960 ####[facility] [address] [place], [address] Bilirubin [Mass/Vol] 0.40 mg/dL Normal 0.20-1.00 [facility] Comment on above: Result Comment: For patients on eltrombopag therapy, use of Dimension [place] TBIL is not recommended. Performed By: #### L 509.1000, L501.9985, L506.1000, L100.0100, L500.4050, L3300.0960 ####[facility] [address] [place], [address] BUN/CRE 12.2 RATIO Normal 10-20 [facility] Comment on above: Performed By: #### L 509.1000, L501.9985, L506.1000, L100.0100, L500.4050, L3300.0960 ####[facility] [address] [place], [address] CA,Total 5.7 mg/dL Invalid Interpretation Code 8.5-10.1 [facility] Comment on above: Result Comment: Crit ical Result(s) Called at: 11:08:06 07/24/2024 by: Hannah Deleon RN ([facility]). Results read back by same. Performed By: #### L 509.1000, L501.9985, L506.1000, L100.0100, L500.4050, L3300.0960 ####[facility] [address] [place], [address] Chloride [Moles/Vol] 103 mmol/L Normal 98-107 [facility] Comment on above: Performed By: #### L 509.1000, L501.9985, L506.1000, L100.0100, L500.4050, L3300.0960 ####[facility] [address] [place], [address] CO2 [Moles/Vol] 23.0 mmol/L Normal 21.0-32.0 [facility] Comment on above: Performed By: #### L 509.1000, L501.9985, L506.1000, L100.0100, L500.4050, L3300.0960 ####[facility] [address] [place], [address] Creatinine [Mass/Vol] 3.45 mg/dL High 0.55-1.02 [facility] Comment on above: Result Comment: The validity of the calculated GFR GFRAA in patients over70 years has not been determined. Clinical correlation isessential. Performed By: #### L 509.1000, L501.9985, L506.1000, L100.0100, L500.4050, L3300.0960 ####[facility] [address] [place], [address] ECRCL 12.61 ml/min Normal [facility] Comment on above: Performed By: #### L 509.1000, L501.9985, L506.1000, L100.0100, L500.4050, L3300.0960 ####[facility] [address] [place], [address] EST GFR - AA 17 mL/min Low >60 [facility] Comment on above: Result Comment: Afri can Nauruan GFR Calc Performed By: #### L 509.1000, L501.9985, L506.1000, L100.0100, L500.4050, L3300.0960 ####[facility] [address] [place], [address] GAP 8 Normal 5-15 [facility] Comment on above: Performed By: #### L 509.1000, L501.9985, L506.1000, L100.0100, L500.4050, L3300.0960 ####[facility] [address] [place], [address] GFR/1.73 sq M.predicted among non-blacks MDRD (S/P/Bld) [Vol rate/Area] 14 mL/min/{1.73_m2} Low >60 [facility] Comment on above: Result Comment: Non- GFR Calc Performed By: #### L 509.1000, L501.9985, L506.1000, L100.0100, L500.4050, L3300.0960 ####[facility] [address] [place], [address] Globulin (S) [Mass/Vol] 3.9 g/dL Normal 2.2-4.2 [facility] Comment on above: Performed By: #### L 509.1000, L501.9985, L506.1000, L100.0100, L500.4050, L3300.0960 ####[facility] [address] [place], [address] Glucose [Mass/Vol] 220 mg/dL High 74-106 [facility] Comment on above: Result Comment: Gluc ose result greater than or equal to 200 mg/dLsuggests DIABETES MELLITUS per A.D.A. criteria. Performed By: #### L 509.1000, L501.9985, L506.1000, L100.0100, L500.4050, L3300.0960 ####[facility] [address] [place], [address] Potassium [Moles/Vol] 6.2 mmol/L Invalid Interpretation Code 3.5-5.1 [facility] Comment on above: Result Comment: Crit ical Result(s) Called at: 11:08:06 07/24/2024 by: Hannah Deleon RN ([facility]). Results read back by same. Performed By: #### L 509.1000, L501.9985, L506.1000, L100.0100, L500.4050, L3300.0960 ####[facility] [address] [place], [address] Sodium [Moles/Vol] 134 mmol/L Low 136-145 [facility] Comment on above: Performed By: #### L 509.1000, L501.9985, L506.1000, L100.0100, L500.4050, L3300.0960 ####[facility] [address] [place], [address] T PROT 6.8 g/dL Normal 6.4-8.2 [facility] Comment on above: Performed By: #### L 509.1000, L501.9985, L506.1000, L100.0100, L500.4050, L3300.0960 ####[facility] [address] [place], [address] Urea nitrogen [Mass/Vol] 42 mg/dL High 7-18 [facility] Comment on above: Performed By: #### L 509.1000, L501.9985, L506.1000, L100.0100, L500.4050, L3300.0960 ####[facility] [address] [place], [address] Consultation - Nephrologyon 07-24-2024 Consultation - Nephrology Normal [facility] Creatinine, Urine (random)on 07-24-2024 UR CREAT 78.60 mg/dL Normal NO RANGE EST. [facility] Comment on above: Performed By: #### L 501.1200, L501.5500 ####[facility] [address] [place], [place], [address] D-Dimer Quantitative (DVT/PE )on 07-24-2024 D-DIMER QUANT 2.82 FEU/ug/m Invalid Interpretation Code 0.27-0.49 [facility] Comment on above: Result Comment: D-Di vera ELEVATED (>0.49): Additional studies and clinicalassessments are indicated to conclude diagnosis of:Deep Vein Thrombosis (DVT) or Pulmonary Embolism (PE)CRITICAL VALUE CALLED TO [id number]/21/24 0038 Ana Rosa Andrew.RESULTS READ BACK BY SAME. Performed By: #### L 503.6030, L501.2300, L501.3620, L509.7000, L101.9900, L501.5200, L503.6550, L501.6710, L503.6620, L300.8000, L504.2610 ####[facility] [address] [place], [place], [address] Erythrocyte Sed Rateon 07-24 SED RATE 21 mm/hr Normal 0-30 [facility] Comment on above: Performed By: #### L 503.6030, L501.2300, L501.3620, L509.7000, L101.9900, L501.5200, L503.6550, L501.6710, L503.6620, L300.8000, L504.2610 ####[facility] [address] [place], [place], [id number] Ferritinon 07-24-2024 Ferritin [Mass/Vol] 106 ng/mL Normal 8-252 [facility] Comment on above: Order Comment: Comme nts: May add to ED labsComments: add to ED labsComments: may add to ED labsmay add to ED labs Performed By: #### L 503.6030, L501.2300, L501.3620, L509.7000, L101.9900, L501.5200, L503.6550, L501.6710, L503.6620, L300.8000, L504.2610 ####[facility] [address] [place], [place], [id number] Hemoglobin A1con 07-24-2024 HbA1c (Bld) [Mass fraction] 5.7 % High 3.8-5.6 [facility] Comment on above: Result Comment: Norm al < 5.7 % Prediabetic 5.7 - 6.4 % Diabetic >or= 6.5 % Please note range changes. Performed By: #### L 509.1000, L501.9985, L506.1000, L100.0100, L500.4050, L3300.0960 ####[facility] [address] [place], [place], [id number] Iron+Iron Binding Capacityon 07-24-2024 Iron [Mass/Vol] 24 ug/dL Low 50-170 [facility] Comment on above: Order Comment: Comme nts: May add to ED labsComments: add to ED labsComments: may add to ED labsmay add to ED labs Performed By: #### L 503.6030, L501.2300, L501.3620, L509.7000, L101.9900, L501.5200, L503.6550, L501.6710, L503.6620, L300.8000, L504.2610 ####[facility] [address] [place], [address] IRON SATURATION 10.3 Low 15.0-55.0 [facility] Comment on above: Order Comment: Comme nts: May add to ED labsComments: add to ED labsComments: may add to ED labsmay add to ED labs Performed By: #### L 503.6030, L501.2300, L501.3620, L509.7000, L101.9900, L501.5200, L503.6550, L501.6710, L503.6620, L300.8000, L504.2610 ####[facility] [address] [place], [address] TIBC 233 ug/dL Low 250-450 [facility] Comment on above: Order Comment: Comme nts: May add to ED labsComments: add to ED labsComments: may add to ED labsmay add to ED labs Performed By: #### L 503.6030, L501.2300, L501.3620, L509.7000, L101.9900, L501.5200, L503.6550, L501.6710, L503.6620, L300.8000, L504.2610 ####[facility] [address] [place], [address] Kidney and Bladderon 024 Kidney and Bladder Normal [facility] L501.2276on 07-24-2024 Ionized Calcium 3.39 mg/dL Low 4.36-5.20 [facility] Comment on above: Performed By: #### L 501.3236 ####[facility] [address] [place], [address] LDHon 07-24-2024 LDH 334 U/L High 84-246 [facility] Comment on above: Order Comment: Comme nts: May add to ED labsComments: add to ED labsComments: may add to ED labsmay add to ED labs Performed By: #### L 503.6030, L501.2300, L501.3620, L509.7000, L101.9900, L501.5200, L503.6550, L501.6710, L503.6620, L300.8000, L504.2610 ####[facility] [address] [place], [address] Liver Profileon 07-24-2024 Albumin [Mass/Vol] 2.7 g/dL Low 3.2-5.0 [facility] Comment on above: Performed By: #### L 500.6040 ####[facility] [address] [place], [address] ALK P 75 U/L Normal 45-117 [facility] Comment on above: Performed By: #### L 500.3400 ####[facility] [address] [place], [address] ALT [Catalytic activity/Vol] 17 U/L Normal 13-56 [facility] Comment on above: Performed By: #### L 500.3400 ####[facility] [address] [place], [address] AST [Catalytic activity/Vol] 17 U/L Normal 15-37 [facility] Comment on above: Performed By: #### L 500.3400 ####[facility] [address] [place], [address] Bilirubin [Mass/Vol] 0.20 mg/dL Normal 0.20-1.00 [facility] Comment on above: Result Comment: For patients on eltrombopag therapy, use of Dimension [place] TBIL is not recommended. Performed By: #### L 500.3400 ####[facility] [address] [place], [address] Bilirubin.direct [Mass/Vol] 0.10 mg/dL Normal 0.00-0.30 [facility] Comment on above: Performed By: #### L 500.3400 ####[facility] [address] [place], [address] Globulin (S) [Mass/Vol] 3.7 g/dL Normal 2.2-4.2 [facility] Comment on above: Performed By: #### L 500.3400 ####[facility] [address] [place], [address] T PROT 6.4 g/dL Normal 6.4-8.2 [facility] Comment on above: Performed By: #### L 500.3400 ####[facility] [address] [place], [address] M100.678on 07-24-2024 M100.678 Normal [facility] Comment on above: Performed By: #### M 100.678 ####[facility] [address] [place], [place], [address] Magnesiumon 07-24-2024 Magnesium [Mass/Vol] 1.6 mg/dL Normal 1.6-2.6 [facility] Comment on above: Order Comment: Comme nts: May add to ED labsComments: add to ED labsComments: may add to ED labsmay add to ED labs Performed By: #### L 503.6030, L501.2300, L501.3620, L509.7000, L101.9900, L501.5200, L503.6550, L501.6710, L503.6620, L300.8000, L504.2610 ####[facility] [address] [place], [place], [address] PTHINon 07-24-2024 PTH 1027.8 pg/mL High 18.4-80.1 [facility] Comment on above: Performed By: #### L 509.1000, L501.9985, L506.1000, L100.0100, L500.4050, L3300.0960 ####[facility] [address] [place], [address] Phosphoruson 07-24-2024 Phosphate [Mass/Vol] 5.0 mg/dL High 2.5-4.9 [facility] Comment on above: Order Comment: Comme nts: May add to ED labsComments: add to ED labsComments: may add to ED labsmay add to ED labs Performed By: #### L 503.6030, L501.2300, L501.3620, L509.7000, L101.9900, L501.5200, L503.6550, L501.6710, L503.6620, L300.8000, L504.2610 ####[facility] [address] [place], [place], [address] Procalcitoninon 07-24-2024 Procalcitonin 0.11 ng/mL High 0.00-0.09 [facility] Comment on above: Result Comment: A [...] L501.2300, L501.3620, L509.7000, L101.9900, L501.5200, L503.6550, L501.6710, L503.6620, L300.8000, L504.2610 ####[facility] [address] [facility] [place], [place], [id number] Stool Occult Blood iFOBon STOB Positive Normal [facility] Comment on above: Performed By: #### M 100.7900 ####[facility] [address] [facility]. [place], [place], [address] Type AND Screenon 07-24-2024 Ab SCREEN GEL TNP Normal [facility] Comment on above: Order Comment: CMV N EG? NNumber of units to transfuse: 1Is pt's Hgb is = to 7.0 mg/dl or Hct </= 21%? YReason for Ordering Blood: ChronicAre the blood/blood products to be transfused? YIs the patient having/had surgery? NHas pt arrived? GordyNasteresa NielsenNY Result Comment: AMENDED REPORT 07/24/24 0141: Antibody Screen previously reported as:NEGATIVE Performed By: #### B EYAD MCDONNELLS, Y80526-6 ####[facility] [address] [place], [address] Urinalysis, Completeon 07-24 BACTERIA 1+ /hpf Normal None Seen [facility] Comment on above: Order Comment: CLEAN CATCH Performed By: #### L 400.0001 ####[facility] [address] [place], [address] WBC 0-5 SEEN Normal 0-5 [facility] Comment on above: Order Comment: CLEAN CATCH Performed By: #### L 400.0001 ####[facility] [address] [place], [address] Urine Sodiumon 07-24-2024 Sodium (U) [Moles/Vol] 23 mmol/L Normal Not Establ. [facility] Comment on above: Performed By: #### L 501.1200, L501.5500 ####[facility] [address] [place], [address] Vitamin D,25 Hydroxyon 07-24 Vitamin D 25-OH 11.5 ng/mL Normal [facility] Comment on above: Result Comment: Greta min D 25(OH) Status Range Deficiency <20 ng/mL (50nmol/L) Insufficiency 20 - 30 ng/mL (50 - 75 nmol/L) Sufficiency 30 - 100 ng/mL (75 - 250 nmol/L) Toxicity >100 ng/mL (>250 nmol/L) Performed By: #### L 509.1000, L501.9985, L506.1000, L100.0100, L500.4050, L3300.0960 ####[facility] [address] [place], [address] 12 Lead EKGon 07-23-2024 12 Lead EKG Normal [facility] BRCon 07-23-2024 RC Normal [facility] Comment on above: Result Comment: [id number] OP RC TRANSFUSED 07/26/24 [id number] OP RC TRANSFUSED 07/26/24 0424 Performed By: #### B RC ####[facility] [address] [place], [address] Result Comment: [id number] OP RC TRANSFUSED 07/24/24 0306 Performed By: #### B RC, BTS, [id number] ####[facility] [address] [place], [address] Basic Metabolic Profile (BMP )on 07-23-2024 BUN/CRE 12.0 RATIO Normal 08-22 [facility] Comment on above: Order Comment: 'TROP ' Serial specimen #1, #2 or #3: 1 Performed By: #### L 100.0100, L500.2500, L501.4020 ####[facility] [address] [place], [address] CA,Total 5.4 mg/dL Invalid Interpretation Code 8.5-10.1 [facility] Comment on above: Order Comment: 'TROP ' Serial specimen #1, #2 or #3: 1 Result Comment: Crit ical Result(s) Called at: 23:18:14 07/23/2024 by:[facility] Results read back by same. Performed By: #### L 100.0100, L500.2500, L501.4020 ####[facility] [address] [place], [address] Chloride [Moles/Vol] 101 mmol/L Normal 98-107 [facility] Comment on above: Order Comment: 'TROP ' Serial specimen #1, #2 or #3: 1 Performed By: #### L 100.0100, L500.2500, L501.4020 ####[facility] [address] [place], [address] CO2 [Moles/Vol] 29.0 mmol/L Normal 21.0-32.0 [facility] Comment on above: Order Comment: 'TROP ' Serial specimen #1, #2 or #3: 1 Performed By: #### L 100.0100, L500.2500, L501.4020 ####[facility] [address] [place], [address] Creatinine [Mass/Vol] 3.66 mg/dL High 0.55-1.02 [facility] Comment on above: Order Comment: 'TROP ' Serial specimen #1, #2 or #3: 1 Result Comment: The validity of the calculated GFR GFRAA in patients over70 years has not been determined. Clinical correlation isessential. Performed By: #### L 100.0100, L500.2500, L501.4020 ####[facility] [address] [place], [address] EST GFR - AA 16 mL/min Low >60 [facility] Comment on above: Order Comment: 'TROP ' Serial specimen #1, #2 or #3: 1 Result Comment: Afri can Nauruan GFR Calc Performed By: #### L 100.0100, L500.2500, L501.4020 ####[facility] [address] [place], [address] GAP 4 Low 5-15 [facility] Comment on above: Order Comment: 'TROP ' Serial specimen #1, #2 or #3: 1 Performed By: #### L 100.0100, L500.2500, L501.4020 ####[facility] [address] [place], [address] GFR/1.73 sq M.predicted among non-blacks MDRD (S/P/Bld) [Vol rate/Area] 13 mL/min/{1.73_m2} Low >60 [facility] Comment on above: Order Comment: 'TROP ' Serial specimen #1, #2 or #3: 1 Result Comment: Non- GFR Calc Performed By: #### L 100.0100, L500.2500, L501.4020 ####[facility] [address] [place], [address] Glucose [Mass/Vol] 146 mg/dL High 74-106 [facility] Comment on above: Order Comment: 'TROP ' Serial specimen #1, #2 or #3: 1 Result Comment: Fast ing Glucose result greater than or equal to 126 mg/dLsuggests DIABETES MELLITUS per A.D.A. criteria. Performed By: #### L 100.0100, L500.2500, L501.4020 ####[facility] [address] [place], [address] Potassium [Moles/Vol] 5.4 mmol/L High 3.5-5.1 [facility] Comment on above: Order Comment: 'TROP ' Serial specimen #1, #2 or #3: 1 Performed By: #### L 100.0100, L500.2500, L501.4020 ####[facility] [address] [place], [address] Sodium [Moles/Vol] 134 mmol/L Low 136-145 [facility] Comment on above: Order Comment: 'TROP ' Serial specimen #1, #2 or #3: 1 Performed By: #### L 100.0100, L500.2500, L501.4020 ####[facility] [address] [place], [address] Urea nitrogen [Mass/Vol] 44 mg/dL High 7-18 [facility] Comment on above: Order Comment: 'TROP ' Serial specimen #1, #2 or #3: 1 Performed By: #### L 100.0100, L500.2500, L501.4020 ####[facility] [address] [place], [address] Bedside Glucoseon 07-23-2024 FINGERSTICK GLU 120 mg/dL High 74-106 [facility] Comment on above: Result Comment: SHELLY GEMENT OF PATIENT CARE PER NURSING PROTOCOL Performed By: #### L 501.080 ####[facility] [address] [place], [address] FINGERSTICK GLU 163 mg/dL High 74-106 [facility] Comment on above: Result Comment: SHELLY GEMENT OF PATIENT CARE PER NURSING PROTOCOL Performed By: #### L 501.080 ####[facility] [address] [place], [address] CBC W/Diff, Automatedon 09-2 0-2023 Absolute Lymph 1.37 X10 3/uL Normal 0.83-4.51 [facility] Comment on above: Performed By: #### L 100.0100, L500.2500, L501.4020 ####[facility] [address] [place], [address] Absolute Neut 4.2 X10 3/uL Normal 2.0-7.7 [facility] Comment on above: Performed By: #### L 100.0100, L500.2500, L501.4020 ####[facility] [address] [place], [address] Basophils/100 WBC (Bld) 0.5 % Normal 0-1 [facility] Comment on above: Performed By: #### L 100.0100, L500.2500, L501.4020 ####[facility] [address] [place], [address] Eosinophils/100 WBC (Bld) 4.6 % Normal 0-5 [facility] Comment on above: Performed By: #### L 100.0100, L500.2500, L501.4020 ####[facility] [address] [place], [address] Erythrocyte distribution width (RBC) [Ratio] 13.5 % Normal 11.6-14.6 [facility] Comment on above: Performed By: #### L 100.0100, L500.2500, L501.4020 ####[facility] [address] [place], [address] Hematocrit (Bld) [Volume fraction] 24.0 % Low 37-47 [facility] Comment on above: Performed By: #### L 100.0100, L500.2500, L501.4020 ####[facility] [address] [place], [address] Hemoglobin (Bld) [Mass/Vol] 7.0 g/dL Low 12.0-15.0 [facility] Comment on above: Performed By: #### L 100.0100, L500.2500, L501.4020 ####[facility] [address] [place], [address] IG% 0.600 Normal 0.0-0.9 [facility] Comment on above: Result Comment: IG% - Immature Granulocytes (promyelocytes, myelocytes andmetamyelocytes) > 1% indicates that a LEFT SHIFT is Present. Performed By: #### L 100.0100, L500.2500, L501.4020 ####[facility] [address] [place], [address] Lymphocytes/100 WBC (Bld) 21.1 % Normal 19-41 [facility] Comment on above: Performed By: #### L 100.0100, L500.2500, L501.4020 ####[facility] [address] [place], [address] MCH (RBC) [Entitic mass] 28.3 pg Normal 27.0-32.0 [facility] Comment on above: Performed By: #### L 100.0100, L500.2500, L501.4020 ####[facility] [address] [place], [address] MCHC (RBC) [Mass/Vol] 29.2 g/dL Low 32-36 [facility] Comment on above: Performed By: #### L 100.0100, L500.2500, L501.4020 ####[facility] [address] [place], [address] MCV (RBC) [Entitic vol] 97.2 fL Normal 81-99 [facility] Comment on above: Performed By: #### L 100.0100, L500.2500, L501.4020 ####[facility] [address] [place], [address] Monocytes/100 WBC (Bld) 7.7 % Normal 0-10 [facility] Comment on above: Performed By: #### L 100.0100, L500.2500, L501.4020 ####[facility] [address] [place], [address] Neutrophils/100 WBC (Bld) 65.5 % Normal 47-70 [facility] Comment on above: Performed By: #### L 100.0100, L500.2500, L501.4020 ####[facility] [address] [place], [address] Nucleated RBC (Bld) [#/Vol] 0 10*3/uL Normal 0-5 [facility] Comment on above: Performed By: #### L 100.0100, L500.2500, L501.4020 ####[facility] [address] [place], [address] Platelet mean volume (Bld) [Entitic vol] 10.2 fL Normal 6.2-12.0 [facility] Comment on above: Performed By: #### L 100.0100, L500.2500, L501.4020 ####[facility] [address] [place], [address] Platelets (Bld) [#/Vol] 182 10*3/uL Normal 150-450 [facility] Comment on above: Performed By: #### L 100.0100, L500.2500, L501.4020 ####[facility] [address] [place], [address] RBC (Bld) [#/Vol] 2.47 10*6/uL Low 4.2-5.4 [facility] Comment on above: Performed By: #### L 100.0100, L500.2500, L501.4020 ####[facility] [address] [place], [address] RDW SD 48.6 fl High 35.1-43.9 [facility] Comment on above: Performed By: #### L 100.0100, L500.2500, L501.4020 ####[facility] [address] [place], [address] WBC (Bld) [#/Vol] 6.5 10*3/uL Normal 4.4-11.0 [facility] Comment on above: Performed By: #### L 100.0100, L500.2500, L501.4020 ####[facility] [address] [place], [address] Chest PA and Lateralon 07-23 Chest PA and Lateral Normal [facility] Emergency Department Summary on 07-23-2024 Emergency Department Summary Normal [facility] H AND P Exam - Hospitaliston 07-23-2024 H&P Exam - Hospitalist Normal [facility] L501.4020on 07-23-2024 TROPONIN-I HS 30 pg/mL Normal 3.0-54.0 [facility] Comment on above: Order Comment: 'TROP ' Serial specimen #1, #2 or #3: 1 Result Comment: Plea se Note: New Test Units and Gender Specific Reference Ranges. For more information see Policy Stat Procedure [place] High Sensitivity Troponin (TNIH) and attachments. Performed By: #### L 100.0100, L500.2500, L501.4020 ####[facility] [address] [place], [address] Urinalysis, Completeon 07-23 EPI,SQUAMOUS 0 SEEN Normal 5-10 [facility] Comment on above: Order Comment: CLEAN CATCH Performed By: #### L 400.0001 ####[facility] [address] [place], [address] Mucus Ql (Urine sed) 0 SEEN Normal [facility] Comment on above: Order Comment: CLEAN CATCH Performed By: #### L 400.0001 ####[facility] [address] [place], [address] RBC 0 SEEN Normal 0-5 [facility] Comment on above: Order Comment: CLEAN CATCH Performed By: #### L 400.0001 ####[facility] [address] [place], [address] Office Visit Reporton 2023 Office Visit Report Normal [facility] Basophil percentageOrdered B y: Christy Bradley on 01-15-2024 Basophil percentage 3.7 mg/dL 2.5-4.9 [facility] Bilirubin [Mass/Vol] 0.50 mg/dL 0.20-1.00 [facility] Comment on above: For patients on eltr ombopag therapy, use of Dimension [place] TBIL is not recommended. Chloride [Moles/Vol] 105 mmol/L 98-107 [facility] Cholesterol [Mass/Vol] 145 mg/dL <200 [facility] Comment on above: <200 mg/dL Desirable 200-240 mg/dL Borderline >240 mg/dL High Risk Glucose [Mass/Vol] 180 mg/dL 74-106 [facility] Comment on above: Fasting Glucose resu lt greater than or equal to 126 mg/dL suggests DIABETES MELLITUS per A.D.A. criteria. Hemoglobin (Bld) [Mass/Vol] 11.4 g/dL 12.0-15.0 [facility] Potassium [Moles/Vol] 4.8 mmol/L 3.5-5.1 [facility] Protein [Mass/Vol] 6.8 g/dL 6.4-8.2 [facility] Sodium [Moles/Vol] 140 mmol/L 136-145 [facility] Triglyceride [Mass/Vol] 132 mg/dL <199 [facility] Comment on above: The drugs N-Acetylcy steine and Metamizole may falsely depress this assay.Serum Triglycerides Reference Interval Normal <150 mg/dL Borderline high 150 - 199 mg/dL High 200 - 499 mg/dL Very High > or = 500 mg/dL WBC (Bld) [#/Vol] 6.9 10*3/uL 4.4-11.0 [facility] Determination of erythrocyte mean corpuscular volume (MCV)Ordered By: Christy Huerta on 01-15-2024 MCV (RBC) [Entitic vol] 95.9 fL 81-99 [facility] Direct bilirubinOrdered By: Christy Huerta on 01-15-2024 Bilirubin.direct [Mass/Vol] 0.10 mg/dL 0.00-0.30 [facility] Erythrocyte distribution wid th ratioOrdered By: Christy Huerta on 01-15-2024 Erythrocyte distribution width (RBC) [Ratio] 12.3 % 11.6-14.6 [facility] Erythrocyte distribution wid th standard deviationOrdered By: Christy Huerta on 01-15-2024 Erythrocyte distribution width (RBC) [Entitic vol] 43.2 fL 35.1-43.9 [facility] Hematocrit Auto (Bld) [Volum e fraction]Ordered By: Christy Huerta on 01-15-2024 Hematocrit (Bld) [Volume fraction] 37.6 % 37-47 [facility] Laboratory - Chemistry and C hemistry - challengeOrdered By: Christy Huerta on 01-15-2024 Albumin/Globulin [Mass ratio] 0.9 {ratio} 0.9-2.4 [facility] ALP [Catalytic activity/Vol] 82 U/L 45-117 [facility] ALT [Catalytic activity/Vol] 14 U/L 13-56 [facility] Cholesterol in HDL [Mass/Vol] 59 mg/dL >40 [facility] Comment on above: The drugs N-Acetylcy steine and Metamizole may falsely depress this assay. Reference Range HDL <40 mg/dL Low HDL Cholesterol HDL >or= 60 mg/dL High HDL Cholesterol Cholesterol in LDL [Mass/Vol] 60 mg/dL 0-130 [facility] CO2 [Moles/Vol] 31.0 mmol/L 21.0-32.0 [facility] Cobalamin (Vitamin B12) [Mass/Vol] 753 pg/mL 211-911 [facility] Globulin (S) [Mass/Vol] 3.5 g/dL 2.2-4.2 [facility] Urea nitrogen/Creatinine [Mass ratio] 11.8 mg/mg 10-20 [facility] Laboratory - Hematology and Cell countsOrdered By: Christy Huerta on 01-15-2024 MCH (RBC) [Entitic mass] 29.1 pg 27.0-32.0 [facility] MCHC (RBC) [Mass/Vol] 30.3 g/dL 32-36 [facility] Platelet mean volume (Bld) [Entitic vol] 10.6 fL 6.2-12.0 [facility] Platelets (Bld) [#/Vol] 188 10*3/uL 150-450 [facility] No Panel InformationOrdered By: Christy Huerta on 01-15-2024 Estimated GFR (MDRD) Amer 22 mL/min >60 [facility] Comment on above: GFR Calc Estimated GFR (MDRD) Non-Af Amer 18 mL/min >60 [facility] Comment on above: Non- GFR Calc Parathyroid Hormone (Intact) 137.2 pg/mL 18.4-80.1 [facility] VLDL Cholesterol 26 mg/dL 5-40 [facility] RBC Auto (Bld) [#/Vol]Ordere d By: Christy Huerta on 01-15-2024 RBC (Bld) [#/Vol] 3.92 10*6/uL 4.2-5.4 [facility] Serum or plasma calcium lesly urement (mass/volume)Ordered By: Christy Huerta on 01-15-2024 Calcium [Mass/Vol] 9.1 mg/dL 8.5-10.1 [facility] Serum or plasma creatinine m easurement (mass/volume)Ordered By: Christy Huerta on 01-15-2024 Creatinine [Mass/Vol] 2.79 mg/dL 0.55-1.02 [facility] Comment on above: The validity of the calculated GFR & GFRAA in patients over 70 years has not been determined. Clinical correlation is essential. Serum or plasma thyroid stim ulating hormone (TSH) measurement (units/volume)Ordered By: Christy Huerta on 01-15-2024 TSH Qn 2.34 uIU/mL 0.358-3.74 [facility] Serum or plasma urea nitroge n measurement (mass/volume)Ordered By: Christy Huerta on 01-15-2024 Urea nitrogen [Mass/Vol] 33 mg/dL 7-18 [facility] Thin prep Papanicolaou smear with manual screeningOrdered By: Christy Huerta on 01-15-2024 Thin prep Papanicolaou smear with manual screening 3.3 g/dL 3.2-5.0 [facility] Thin prep Papanicolaou smear with manual screening 16 U/L 15-37 [facility] Thin prep Papanicolaou smear with manual screening 4 5-15 [facility] Laboratory - Hematology and Cell countson 12-03-2023 HbA1c (Bld) [Mass fraction] 8.6 % 4.2-6.3 [facility] Basophil percentageOrdered B y: Christy Huerta on 11-18-2023 Basophil percentage 3.3 mg/dL 2.5-4.9 [facility] Chloride [Moles/Vol] 108 mmol/L 98-107 [facility] Glucose [Mass/Vol] 359 mg/dL 74-106 [facility] Comment on above: Glucose result great er than or equal to 200 mg/dLsuggests DIABETES MELLITUS per A.D.A. criteria. Potassium [Moles/Vol] 5.6 mmol/L 3.5-5.1 [facility] Sodium [Moles/Vol] 139 mmol/L 136-145 [facility] Laboratory - Chemistry and C hemistry - challengeOrdered By: Christy Huerta on 11-18-2023 CO2 [Moles/Vol] 27.0 mmol/L 21.0-32.0 [facility] Urea nitrogen/Creatinine [Mass ratio] 18.5 mg/mg 10-20 [facility] No Panel InformationOrdered By: Christy Huerta on 11-18-2023 Estimated GFR (MDRD) Amer 22 mL/min >60 [facility] Comment on above: GFR Calc Estimated GFR (MDRD) Non-Af Amer 19 mL/min >60 [facility] Comment on above: Non- GFR Calc Serum or plasma calcium lesly urement (mass/volume)Ordered By: Christy Huerta on 11-18-2023 Calcium [Mass/Vol] 8.8 mg/dL 8.5-10.1 [facility] Serum or plasma creatinine m easurement (mass/volume)Ordered By: Christy Huerta on 11-18-2023 Creatinine [Mass/Vol] 2.75 mg/dL 0.55-1.02 [facility] Comment on above: The validity of the calculated GFR & GFRAA in patients over 70 years has not been determined. Clinical correlation is essential. Serum or plasma urea nitroge n measurement (mass/volume)Ordered By: Christy Huerta on 11-18-2023 Urea nitrogen [Mass/Vol] 51 mg/dL 7-18 [facility] Thin prep Papanicolaou smear with manual screeningOrdered By: Christy Huerta on 11-18-2023 Thin prep Papanicolaou smear with manual screening 2.9 g/dL 3.2-5.0 [facility] Bacteria identified Respirat ory culture Nom (Unsp spec)Ordered By: Jeanna Davis on 10-29-2023 Respiratory Culture Pseudomonas aeruginosa [facility] Respiratory Culture Staphylococcus aureus [facility] Respiratory Culture Pseudomonas aeruginosa [facility] Respiratory Culture Staphylococcus aureus [facility] Gram stain for investigation of transfusion reactionOrdered By: Jeanna Davis on 10-29-2023 Microscopic observation Gram stain Nom (Unsp spec) [facility] Microscopic observation Gram stain Nom (Unsp spec) [facility] 24 hour urine protein measur ement (mass/time)Ordered By: Christy Huerta on 10-13-2023 Protein (24H U) [Mass/Time] 2213.8 mg/24HR 0-151 [facility] 24 hour urine protein measur ement (mass/volume)Ordered By: Christy Huerta on 10-13-2023 Protein (24H U) [Mass/Vol] 177.1 mg/dL 0.0-11.8 [facility] Creatinine clearanceOrdered By: Christy Huerta on 10-13-2023 Creatinine renal clearance Unsp time (U+S/P) [Vol/Time] 21 ml/min 100-200 [facility] Culture, urineOrdered By: Aashish Huerta on 10-13-2023 Bacteria identified Cx Nom (U) Culture exhibits no growth. [facility] Bacteria identified Cx Nom (U) Culture exhibits no growth. [facility] Laboratory - Specimen inform ationOrdered By: Christy Huerta on 10-13-2023 Collection duration (U) 24.0 HOURS 24.0-24.0 [facility] Comment on above: *Additional results available. Contact laboratory/see report* No Panel InformationOrdered By: Christy Huerta on 10-13-2023 Estimated GFR (MDRD) Amer 25 mL/min >60 [facility] Comment on above: GFR Calc Estimated GFR (MDRD) Non-Af Amer 21 mL/min >60 [facility] Comment on above: Non- GFR Calc Timed Urine Volume 1250 mL [facility] Comment on above: *Additional results available. Contact laboratory/see report* Thin prep Papanicolaou smear with manual screeningOrdered By: Christy Huerta on 10-13-2023 Creatinine (U) [Mass/Vol] 2.5 mg/dL 0.6-1.0 [facility] Urine creatinine measurement (mass/volume)Ordered By: Christy Huerta on 10-13-2023 Creatinine (U) [Mass/Vol] 61.4 mg/dL NO RANGE EST. [facility] Basophil percentageOrdered B y: Christy Huerta on 10-09-2023 Basophil percentage 10-25 SEEN /hpf 0-5 [facility] Bilirubin Test strip Ql (U)O rdered By: Christy Huerta on 10-09-2023 Bilirubin Ql (U) Negative Negative [facility] Ketones Test strip Ql (U)Ord ered By: Christy Huerta on 10-09-2023 Ketones Ql (U) Negative Negative [facility] Mucus LM Ql (Urine sed)Order ed By: Christy Huerta on 10-09-2023 Mucus Ql (Urine sed) 0 SEEN /hpf [facility] Nitrite Test strip Ql (U)Ord ered By: Christy Huerta on 10-09-2023 Nitrite Ql (U) Negative Negative [facility] Protein Test strip Ql (U)Ord ered By: Christy Huerta on 10-09-2023 Protein Ql (U) 100 mg/dl Negative [facility] Squamous epithelial cells de tection in urine sediment by light microscopyOrdered By: Christy Huerta on 10-09-2023 Epithelial cells.squamous LM Ql (Urine sed) 0-5 SEEN /hpf 5-10 [facility] Urine blood detectionOrdered By: Christy Huerta on 10-09-2023 RBC Ql (U) 10 /ul Negative [facility] RBC Ql (U) 0-5 SEEN /hpf 0-5 [facility] Urine clarityOrdered By: Malcolm Huerta on 10-09-2023 Clarity (U) Sl. Cloudy Clear [facility] Urine color determinationOrd ered By: Christy Huerta on 10-09-2023 Color (U) Yellow Yellow [facility] Urine glucose detectionOrder ed By: Christy Huerta on 10-09-2023 Glucose Ql (U) 250 mg/dl Normal [facility] Urine leukocyte esterase det ection by dipstickOrdered By: Christy Huerta on 10-09-2023 Leukocyte esterase Test strip Ql (U) 100 /ul Negative [facility] Urine pHOrdered By: Mary Huerta on 10-09-2023 pH (U) 5.0 [pH] 5.0 - 8.0 [facility] Urine sediment bacteria coun t by microscopy (number/high power field)Ordered By: Christy Huerta on 10-09-2023 Bacteria LM.HPF (Urine sed) [#/Area] 0 /[HPF] None Seen [facility] Urine specific gravity measu rementOrdered By: Christy Huerta on 10-09-2023 Specific gravity (U) [Rel density] 1.015 1.002-1.030 [facility] Urobilinogen Auto test strip Ql (U)Ordered By: Christy uHerta on 10-09-2023 Urobilinogen Ql (U) Normal mg/dl Normal [facility] Basophil percentageOrdered B y: Christy Huerta on 10-06-2023 Basophil percentage 2.9 mg[facility]dL 2[facility]5-4.9 [facility] Chloride [Moles/Vol] 104 mmol/L 98-107 [facility] Glucose [Mass/Vol] 273 mg/dL 74-106 [facility] Comment on above: Glucose result great er than or equal to 200 mg/dLsuggests DIABETES MELLITUS per A.D.A. criteria. Potassium [Moles/Vol] 4.8 mmol/L 3.5-5.1 [facility] Sodium [Moles/Vol] 139 mmol/L 136-145 [facility] WBC (Bld) [#/Vol] 10.3 10*3/uL 4.4-11.0 [facility] Blood erythrocytes count (nu mber/volume)Ordered By: Christy Huerta on 10-06-2023 RBC (Bld) [#/Vol] 3.48 10*6/uL 4.2-5.4 [facility] Blood hemoglobin measurement (mass/volume)Ordered By: Christy Huerta on 10-06-2023 Hemoglobin (Bld) [Mass/Vol] 10.5 g/dL 12.0-15.0 [facility] Blood platelet mean volumeOr dered By: Christy Huerta on 10-06-2023 Platelet mean volume (Bld) [Entitic vol] 10.5 fL 6.2-12.0 [facility] Determination of erythrocyte mean corpuscular volume (MCV)Ordered By: Christy Heurta on 10-06-2023 MCV (RBC) [Entitic vol] 99.1 fL 81-99 [facility] Hematocrit Auto (Bld) [Volum e fraction]Ordered By: Christy Huerta on 10-06-2023 Hematocrit (Bld) [Volume fraction] 34.5 % 37-47 [facility] Laboratory - Chemistry and C hemistry - challengeOrdered By: Christy Huerta on 10-06-2023 CO2 [Moles/Vol] 30.0 mmol/L 21.0-32.0 [facility] Urea nitrogen/Creatinine [Mass ratio] 13.7 mg/mg 10-20 [facility] Laboratory - Hematology and Cell countsOrdered By: Christy Huerta on 10-06-2023 Erythrocyte distribution width (RBC) [Entitic vol] 45.4 fL 35.1-43.9 [facility] Erythrocyte distribution width (RBC) [Ratio] 12.6 % 11.6-14.6 [facility] MCH (RBC) [Entitic mass] 30.2 pg 27.0-32.0 [facility] MCHC Auto (RBC) [Mass/Vol]Or dered By: Christy Huerta on 10-06-2023 MCHC (RBC) [Mass/Vol] 30.4 g/dL 32-36 [facility] No Panel InformationOrdered By: Christy Huerta on 10-06-2023 Estimated GFR (MDRD) Amer 26 mL/min >60 [facility] Comment on above: GFR Calc Estimated GFR (MDRD) Non-Af Amer 22 mL/min >60 [facility] Comment on above: Non- GFR Calc Parathyroid Hormone (Intact) 53.6 pg/mL 18.4-80.1 [facility] Platelets bldOrdered By: Malcolm Huerta on 10-06-2023 Platelets (Bld) [#/Vol] 180 10*3/uL 150-450 [facility] Serum or plasma albumin lesly urement (mass/volume)Ordered By: Christy Huerta on 10-06-2023 Albumin [Mass/Vol] 2.9 g/dL 3.2-5.0 [facility] Serum or plasma calcium lesly urement (mass/volume)Ordered By: Christy Huerta on 10-06-2023 Calcium [Mass/Vol] 9.1 mg/dL 8.5-10.1 [facility] Serum or plasma creatinine m easurement (mass/volume)Ordered By: Christy Huerta on 10-06-2023 Creatinine [Mass/Vol] 2.41 mg/dL 0.55-1.02 [facility] Comment on above: The validity of the calculated GFR & GFRAA in patients over 70 years has not been determined. Clinical correlation is essential. Serum or plasma urea nitroge n measurement (mass/volume)Ordered By: Christy Huerta on 10-06-2023 Urea nitrogen [Mass/Vol] 33 mg/dL 7-18 [facility] Urine creatinine measurement (mass/volume)Ordered By: Christy Huerta on 10-06-2023 Creatinine (U) [Mass/Vol] 65.00 mg/dL NO RANGE EST. [facility] Urine protein measurement (m ass/volume)Ordered By: Christy Huerta on 10-06-2023 Protein (U) [Mass/Vol] 229.6 mg/dL 0.0-11.8 [facility] Urine protein/creatinine mas s ratioOrdered By: Christy Huerta on 10-06-2023 Protein/Creatinine (U) [Mass ratio] 3532 mg/g CRE 0-200 [facility] Laboratory - Hematology and Cell countson 07-14-2023 HbA1c (Bld) [Mass fraction] 8.7 % 4.2-6.3 [facility] Basophil percentageOrdered B y: Christy Huerta on 06-19-2023 Basophil percentage 3.3 mg/dL 2.5-4.9 [facility] Chloride [Moles/Vol] 107 mmol/L 98-107 [facility] Glucose [Mass/Vol] 251 mg/dL 74-106 [facility] Comment on above: Glucose result great er than or equal to 200 mg/dLsuggests DIABETES MELLITUS per A.D.A. criteria. Potassium [Moles/Vol] 5.4 mmol/L 3.5-5.1 [facility] Sodium [Moles/Vol] 140 mmol/L 136-145 [facility] Laboratory - Chemistry and C hemistry - challengeOrdered By: Christy Huerta on 06-19-2023 CO2 [Moles/Vol] 32.0 mmol/L 21.0-32.0 [facility] Urea nitrogen/Creatinine [Mass ratio] 14.5 mg/mg 10-20 [facility] No Panel InformationOrdered By: Christy Huerta on 06-19-2023 Estimated GFR (MDRD) Amer 27 mL/min >60 [facility] Comment on above: GFR Calc Estimated GFR (MDRD) Non-Af Amer 22 mL/min >60 [facility] Comment on above: Non- GFR Calc Parathyroid Hormone (Intact) 118.0 pg/mL 18.4-80.1 [facility] Serum or plasma albumin lesly urement (mass/volume)Ordered By: Christy Huerta on 06-19-2023 Albumin [Mass/Vol] 3.0 g/dL 3.2-5.0 [facility] Serum or plasma calcium lesly urement (mass/volume)Ordered By: Christy Huerta on 06-19-2023 Calcium [Mass/Vol] 8.4 mg/dL 8.5-10.1 [facility] Serum or plasma creatinine m easurement (mass/volume)Ordered By: Christy Huerta on 06-19-2023 Creatinine [Mass/Vol] 2.34 mg/dL 0.55-1.02 [facility] Comment on above: The validity of the calculated GFR & GFRAA in patients over 70 years has not been determined. Clinical correlation is essential. Serum or plasma urea nitroge n measurement (mass/volume)Ordered By: Christy Huerta on 06-19-2023 Urea nitrogen [Mass/Vol] 34 mg/dL 7-18 [facility] Urine creatinine measurement (mass/volume)Ordered By: Christy Huerta on 06-19-2023 Creatinine (U) [Mass/Vol] 85.10 mg/dL NO RANGE EST. [facility] Urine protein measurement (m ass/volume)Ordered By: Christy Huerta on 06-19-2023 Protein (U) [Mass/Vol] 247.0 mg/dL 0.0-11.8 [facility] Urine protein/creatinine mas s ratioOrdered By: Christy Huerta on 06-19-2023 Protein/Creatinine (U) [Mass ratio] 2902 mg/g CRE 0-200 [facility] Basophil percentageOrdered B y: Sin Lujan on 03-17-2023 Basophil percentage 3.4 mg/dL 2.5-4.9 [facility] Chloride [Moles/Vol] 100 mmol/L 98-107 [facility] Glucose [Mass/Vol] 151 mg/dL 74-106 [facility] Comment on above: Fasting Glucose resu lt greater than or equal to 126 mg/dL suggests DIABETES MELLITUS per A.D.A. criteria. Potassium [Moles/Vol] 5.1 mmol/L 3.5-5.1 [facility] Sodium [Moles/Vol] 137 mmol/L 136-145 [facility] Laboratory - Chemistry and C hemistry - challengeOrdered By: Sin Lujan on 03-17-2023 CO2 [Moles/Vol] 32.0 mmol/L 21.0-32.0 [facility] Magnesium [Mass/Vol] 2.5 mg/dL 1.6-2.6 [facility] Urea nitrogen/Creatinine [Mass ratio] 16.1 mg/mg 10-20 [facility] No Panel InformationOrdered By: Sin Lujan on 03-17-2023 Estimated GFR (MDRD) Amer 24 mL/min >60 [facility] Comment on above: GFR Calc Estimated GFR (MDRD) Non-Af Amer 20 mL/min >60 [facility] Comment on above: Non- GFR Calc Parathyroid Hormone (Intact) 39.8 pg/mL 18.4-80.1 [facility] Serum or plasma albumin lesly urement (mass/volume)Ordered By: Sin Lujan on 03-17-2023 Albumin [Mass/Vol] 3.3 g/dL 3.2-5.0 [facility] Serum or plasma calcium lesly urement (mass/volume)Ordered By: Sin Lujan on 03-17-2023 Calcium [Mass/Vol] 9.6 mg/dL 8.5-10.1 [facility] Serum or plasma creatinine m easurement (mass/volume)Ordered By: Sin Lujan on 03-17-2023 Creatinine [Mass/Vol] 2.61 mg/dL 0.55-1.02 [facility] Comment on above: The validity of the calculated GFR & GFRAA in patients over 70 years has not been determined. Clinical correlation is essential. Serum or plasma urea nitroge n measurement (mass/volume)Ordered By: Sin Lujan on 03-17-2023 Urea nitrogen [Mass/Vol] 42 mg/dL 7-18 [facility] Urine creatinine measurement (mass/volume)Ordered By: Sin Lujan on 03-17-2023 Creatinine (U) [Mass/Vol] 29.80 mg/dL NO RANGE EST. [facility] Urine protein measurement (m ass/volume)Ordered By: Sin Lujan on 03-17-2023 Protein (U) [Mass/Vol] 75.7 mg/dL 0.0-11.8 [facility] Urine protein/creatinine mas s ratioOrdered By: Sin Lujan on 03-17-2023 Protein/Creatinine (U) [Mass ratio] 2540 mg/g CRE 0-200 [facility] Basophil percentageOrdered B y: Dr. Lujan on 02-26-2023 Basophil percentage 4.1 mg/dL 2.5-4.9 [facility] Bilirubin [Mass/Vol] 0.40 mg/dL 0.20-1.00 [facility] Comment on above: For patients on eltr ombopag therapy, use of Dimension [place] TBIL is not recommended. Chloride [Moles/Vol] 105 mmol/L 98-107 [facility] Glucose [Mass/Vol] 270 mg/dL 74-106 [facility] Comment on above: Glucose result great er than or equal to 200 mg/dLsuggests DIABETES MELLITUS per A.D.A. criteria. Potassium [Moles/Vol] 5.0 mmol/L 3.5-5.1 [facility] Protein [Mass/Vol] 6.9 g/dL 6.4-8.2 [facility] Sodium [Moles/Vol] 134 mmol/L 136-145 [facility] WBC (Bld) [#/Vol] 5.6 10*3/uL 4.4-11.0 [facility] Blood erythrocytes count (nu mber/volume)Ordered By: Dr. Lujan on 02-26-2023 RBC (Bld) [#/Vol] 4.10 10*6/uL 4.2-5.4 [facility] Blood hemoglobin measurement (mass/volume)Ordered By: Dr. Lujan on 02-26-2023 Hemoglobin (Bld) [Mass/Vol] 12.1 g/dL 12.0-15.0 [facility] Blood platelet mean volumeOr dered By: Dr. Lujan on 02-26-2023 Platelet mean volume (Bld) [Entitic vol] 10.2 fL 6.2-12.0 [facility] Determination of erythrocyte mean corpuscular volume (MCV)Ordered By: Dr. Lujan on 02-26-2023 MCV (RBC) [Entitic vol] 95.9 fL 81-99 [facility] Hematocrit Auto (Bld) [Volum e fraction]Ordered By: Dr. Lujan on 02-26-2023 Hematocrit (Bld) [Volume fraction] 39.3 % 37-47 [facility] Laboratory - Chemistry and C hemistry - challengeOrdered By: Dr. Lujan on 02-26-2023 ALP [Catalytic activity/Vol] 88 U/L 45-117 [facility] ALT [Catalytic activity/Vol] 16 U/L 13-56 [facility] CO2 [Moles/Vol] 26.0 mmol/L 21.0-32.0 [facility] Globulin (S) [Mass/Vol] 3.8 g/dL 2.2-4.2 [facility] Urea nitrogen/Creatinine [Mass ratio] 17.7 mg/mg 10-20 [facility] Laboratory - Hematology and Cell countsOrdered By: Dr. Lujan on 02-26-2023 Erythrocyte distribution width (RBC) [Entitic vol] 49.3 fL 35.1-43.9 [facility] Erythrocyte distribution width (RBC) [Ratio] 14.0 % 11.6-14.6 [facility] MCH (RBC) [Entitic mass] 29.5 pg 27.0-32.0 [facility] MCHC Auto (RBC) [Mass/Vol]Or dered By: Dr. Lujan on 02-26-2023 MCHC (RBC) [Mass/Vol] 30.8 g/dL 32-36 [facility] No Panel InformationOrdered By: Dr. Lujan on 02-26-2023 Estimated GFR (MDRD) Amer 29 mL/min >60 [facility] Comment on above: GFR Calc Estimated GFR (MDRD) Non-Af Amer 24 mL/min >60 [facility] Comment on above: Non- GFR Calc Thyroid Stimulating Hormone (TSH) 2.30 uIU/mL 0.358-3.74 [facility] Vitamin D 25-Hydroxy 54.6 ng/mL [facility] Comment on above: Vitamin D 25(OH) Sta tus Range Deficiency <20 ng/mL (50nmol/L) Insufficiency 20 - 30 ng/mL (50 - 75 nmol/L) Sufficiency 30 - 100 ng/mL (75 - 250 nmol/L) Toxicity >100 ng/mL (>250 nmol/L) No Panel InformationOrdered By: Dr. Huerta on 02-26-2023 Parathyroid Hormone (Intact) 110.4 pg/mL 18.4-80.1 [facility] Platelets bldOrdered By: Dr. Lujan on 02-26-2023 Platelets (Bld) [#/Vol] 217 10*3/uL 150-450 [facility] Serum or plasma albumin lesly urement (mass/volume)Ordered By: Dr. Lujan on 02-26-2023 Albumin [Mass/Vol] 3.1 g/dL 3.2-5.0 [facility] Serum or plasma albumin/glob ulin mass ratioOrdered By: Dr. Lujan on 02-26-2023 Albumin/Globulin [Mass ratio] 0.8 {ratio} 0.9-2.4 [facility] Serum or plasma calcium lesly urement (mass/volume)Ordered By: Dr. Lujan on 02-26-2023 Calcium [Mass/Vol] 8.7 mg/dL 8.5-10.1 [facility] Serum or plasma creatinine m easurement (mass/volume)Ordered By: Dr. Lujan on 02-26-2023 Creatinine [Mass/Vol] 2.20 mg/dL 0.55-1.02 [facility] Comment on above: The validity of the calculated GFR & GFRAA in patients over 70 years has not been determined. Clinical correlation is essential. Serum or plasma urea nitroge n measurement (mass/volume)Ordered By: Dr. Lujan on 02-26-2023 Urea nitrogen [Mass/Vol] 39 mg/dL 7-18 [facility] Thin prep Papanicolaou smear with manual screeningOrdered By: Dr. Lujan on 02-26-2023 Thin prep Papanicolaou smear with manual screening 15 U/L 15-37 [facility] Thin prep Papanicolaou smear with manual screening 3 5-15 [facility] Laboratory - Hematology and Cell countson 01-01-2023 HbA1c (Bld) [Mass fraction] 9.0 % [facility] Absolute lymphocyte counton 10-11-2022 Lymphocytes Auto (Unsp spec) [#/Vol] 2.65 10*3/uL 0.83-4.51 [facility] Work Phone: Basophil percentageon 2021 Amylase [Catalytic activity/Vol] 51 U/L 25-115 [facility] Work Phone: Basophils/100 WBC (Bld) 1.2 % 0-1 [facility] Work Phone: Bilirubin [Mass/Vol] 0.30 mg/dL 0.20-1.00 [facility] Work Phone: Comment on above: For patients on eltr ombopag therapy, use of Dimension [place] TBIL is not recommended. Chloride [Moles/Vol] 101 mmol/L 98-107 [facility] Work Phone: Cholesterol [Mass/Vol] 266 mg/dL <200 [facility] Work Phone: Comment on above: <200 mg/dL Desirable 200-240 mg/dL Borderline >240 mg/dL High Risk Eosinophils/100 WBC (Bld) 8.5 % 0-5 [facility] Work Phone: Glucose [Mass/Vol] 206 mg/dL 74-106 [facility] Work Phone: Comment on above: Glucose result great er than or equal to 200 mg/dLsuggests DIABETES MELLITUS per A.D.A. criteria. Neutrophils (Bld) [#/Vol] 3.7 10*3/uL 2.0-7.7 [facility] Work Phone: Neutrophils/100 WBC (Bld) 49.0 % 47-70 [facility] Work Phone: Potassium [Moles/Vol] 4.2 mmol/L 3.5-5.1 [facility] Work Phone: Protein [Mass/Vol] 6.9 g/dL 6.4-8.2 [facility] Work Phone: Sodium [Moles/Vol] 138 mmol/L 136-145 [facility] Work Phone: Triglyceride [Mass/Vol] 198 mg/dL <199 [facility] Work Phone: Comment on above: The drugs N-Acetylcy steine and Metamizole may falsely depress this assay.Serum Triglycerides Reference Interval Normal <150 mg/dL Borderline high 150 - 199 mg/dL High 200 - 499 mg/dL Very High > or = 500 mg/dL WBC (Bld) [#/Vol] 7.5 10*3/uL 4.4-11.0 [facility] Work Phone: Blood erythrocytes count (nu mber/volume)on 10-11-2022 RBC (Bld) [#/Vol] 4.53 10*6/uL 4.2-5.4 [facility] Work Phone: Blood hemoglobin measurement (mass/volume)on 10-11-2022 Hemoglobin (Bld) [Mass/Vol] 13.4 g/dL 12.0-15.0 [facility] Work Phone: Blood lymphocytes/100 leukoc yteson 10-11-2022 Lymphocytes/100 WBC (Bld) 35.2 % 19-41 [facility] Work Phone: Blood monocytes/100 leukocyt eson 10-11-2022 Monocytes/100 WBC (Bld) 5.8 % 0-10 [facility] Work Phone: Blood platelet mean volumeon 10-11-2022 Platelet mean volume (Bld) [Entitic vol] 10.5 fL 6.2-12.0 [facility] Work Phone: Determination of erythrocyte mean corpuscular volume (MCV)on 10-11-2022 MCV (RBC) [Entitic vol] 96.9 fL 81-99 [facility] Work Phone: Erythrocyte sedimentation ra darek 10-11-2022 ESR (Bld) [Velocity] 38 mm/h 0-30 [facility] Work Phone: Hematocrit Auto (Bld) [Volum e fraction]on 10-11-2022 Hematocrit (Bld) [Volume fraction] 43.9 % 37-47 [facility] Work Phone: INR in Blood by Coagulation assayon 10-11-2022 INR Coag (Bld) [Relative time] 0.9 {INR} [facility] Work Phone: Iron measurement (mass/mass) on 10-11-2022 Iron (Unsp spec) [Mass/Mass] 67 ug/dL 50-170 [facility] Work Phone: Laboratory - Chemistry and C hemistry - challengeon 10-11-2022 ALP [Catalytic activity/Vol] 93 U/L 45-117 [facility] Work Phone: ALT [Catalytic activity/Vol] 11 U/L 13-56 [facility] Work Phone: CO2 [Moles/Vol] 30.0 mmol/L 21.0-32.0 [facility] Work Phone: Globulin (S) [Mass/Vol] 3.8 g/dL 2.2-4.2 [facility] Work Phone: Lipase [Catalytic activity/Vol] 82 U/L 73-393 [facility] Work Phone: Urea nitrogen/Creatinine [Mass ratio] 16.2 mg/mg 10-20 [facility] Work Phone: Laboratory - Coagulationon 1 12-12-2021 aPTT Coag (Bld) [Time] 29.2 s 24.1-36.2 [facility] Work Phone: PT Coag (PPP) [Time] 12.2 s 11.7-14.9 [facility] Work Phone: Laboratory - Hematology and Cell countson 10-11-2022 Erythrocyte distribution width (RBC) [Entitic vol] 48.3 fL 35.1-43.9 [facility] Work Phone: Erythrocyte distribution width (RBC) [Ratio] 13.4 % 11.6-14.6 [facility] Work Phone: Immature granulocytes/100 WBC (Bld) 0.300 % 0.0-0.9 [facility] Work Phone: Comment on above: IG% - Immature Granu locytes (promyelocytes, myelocytes and metamyelocytes) > 1% indicates that a LEFT SHIFT is Present. MCH (RBC) [Entitic mass] 29.6 pg 27.0-32.0 [facility] Work Phone: Nucleated RBC/100 WBC (Bld) [Ratio] 0 % 0-5 [facility] Work Phone: MCHC Auto (RBC) [Mass/Vol]on 10-11-2022 MCHC (RBC) [Mass/Vol] 30.5 g/dL 32-36 [facility] Work Phone: No Panel Informationon 10-11 Estimated GFR (MDRD) Amer 27 mL/min >60 [facility] Work Phone: Comment on above: GFR Calc Estimated GFR (MDRD) Non-Af Amer 22 mL/min >60 [facility] Work Phone: Comment on above: Non- GFR Calc Thyroid Stimulating Hormone (TSH) 1.67 uIU/mL 0.358-3.74 [facility] Work Phone: Vitamin D 25-Hydroxy 30.7 ng/mL [facility] Work Phone: Comment on above: Vitamin D 25(OH) Sta tus Range Deficiency <20 ng/mL (50nmol/L) Insufficiency 20 - 30 ng/mL (50 - 75 nmol/L) Sufficiency 30 - 100 ng/mL (75 - 250 nmol/L) Toxicity >100 ng/mL (>250 nmol/L) Platelets bldon 10-11-2022 Platelets (Bld) [#/Vol] 301 10*3/uL 150-450 [facility] Work Phone: Serum or plasma albumin lesly urement (mass/volume)on 10-11-2022 Albumin [Mass/Vol] 3.1 g/dL 3.2-5.0 [facility] Work Phone: Serum or plasma albumin/glob ulin mass ratioon 10-11-2022 Albumin/Globulin [Mass ratio] 0.8 {ratio} 0.9-2.4 [facility] Work Phone: Serum or plasma calcium lesly urement (mass/volume)on 10-11-2022 Calcium [Mass/Vol] 9.2 mg/dL 8.5-10.1 [facility] Work Phone: Serum or plasma cholesterol in HDL measurement (mass/volume)on 10-11-2022 Cholesterol in HDL [Mass/Vol] 64 mg/dL >40 [facility] Work Phone: Comment on above: The drugs N-Acetylcy steine and Metamizole may falsely depress this assay. Reference Range HDL <40 mg/dL Low HDL Cholesterol HDL >or= 60 mg/dL High HDL Cholesterol Serum or plasma cholesterol in VLDL measurement (mass/volume)on 10-11-2022 Cholesterol in VLDL [Mass/Vol] 40 mg/dL 5-40 [facility] Work Phone: Serum or plasma creatinine m easurement (mass/volume)on 10-11-2022 Creatinine [Mass/Vol] 2.35 mg/dL 0.55-1.02 [facility] Work Phone: Comment on above: The validity of the calculated GFR & GFRAA in patients over 70 years has not been determined. Clinical correlation is essential. Serum or plasma ferritin allyn surement (mass/volume)on 10-11-2022 Ferritin [Mass/Vol] 27 ng/mL 8-252 [facility] Work Phone: Serum or plasma low density lipoprotein (LDL) cholesterol measurement (mass/volume)on 10-11-2022 Cholesterol in LDL [Mass/Vol] 162 mg/dL 0-130 [facility] Work Phone: Serum or plasma urea nitroge n measurement (mass/volume)on 10-11-2022 Urea nitrogen [Mass/Vol] 38 mg/dL 7-18 [facility] Work Phone: Thin prep Papanicolaou smear with manual screeningon 10-11-2022 Thin prep Papanicolaou smear with manual screening 8 U/L 15-37 [facility] Work Phone: Thin prep Papanicolaou smear with manual screening 7 5-15 [facility] Work Phone: Laboratory - Hematology and Cell countson 07-04-2022 HbA1c (Bld) [Mass fraction] 7.2 % [facility] Work Phone: NICOTINE+METABOLITES,Son [id number] 156 ng/mL Normal [facility] Comment on above: Performed By: #### H EPFP #### [facility] [address] [place] [address] COTININE 194 ng/mL Normal [facility] Comment on above: Performed By: #### H EPFP #### [facility] [address] [place] [address] NICOTINE 7 ng/mL Normal [facility] Comment on above: Result Comment: Cons istent with use of a nicotine-containing product within 48 hours of specimen collection. Nicotine is metabolized to cotinine and 0-SQ-buenjqln. INTERPRETIVE INFORMATION: Nicotine and Metabolites, Serum or [...] developed and its performance characteristics determined by [employer]. It has not been cleared or approved by the [place] Food and Drug Administration. This test was performed in a CLIA certified laboratory and is intended for clinical purposes. Performed By: [facility] [address] [place] [id number] [employer] Rece[employer] Analyst: Fabrizio Cruz MD, PhD Performed By: #### H EPFP #### [facility] [address] [place] [address] DRUG-PROFILE 9,BLOOD WITH RE FLEX TO CONFIRMATIONon 05-31-2022 AMPHETAMINES SCREEN Negative Normal Cutoff 20 [facility] Comment on above: Performed By: #### H EPFP #### [facility] [address] [place] [address] BARBITURATES SCREEN Negative Normal Cutoff 50 [facility] Comment on above: Performed By: #### H EPFP #### [facility] [address] [place] [address] BENZODIAZEPINES SCREEN Negative Normal Cutoff 50 [facility] Comment on above: Performed By: #### H EPFP #### [facility] [address] [place] [address] BUPRENORPHINE SCREEN Negative Normal Cutoff 1 [facility] Comment on above: Performed By: #### H EPFP #### [facility] [address] [place] [address] CANNABINOID SCREEN Negative Normal Cutoff 20 [facility] Comment on above: Performed By: #### H EPFP #### [facility] [address] [place] [address] COCAINE SCREEN Negative Normal Cutoff 20 [facility] Comment on above: Performed By: #### H EPFP #### [facility] [address] [place] [address] DRUG SCREEN COMMENT See Note Normal [facility] Comment on above: Result Comment: INTE [...] developed and its performance characteristics determined by [employer]. It has not been cleared or approved by the US Food and Drug Administration. This test was performed in a CLIA certified laboratory and is intended for clinical purposes. Performed By: [facility] [address] [place] [id number] Account[employer] Receivable Analyst: Fabrizio Cruz MD, PhD Performed By: #### H EPFP #### [facility] [address] [place] [address] METHADONE SCREEN Negative Normal Cutoff 25 [facility] Comment on above: Performed By: #### H EPFP #### [facility] [address] [place] [address] METHAMPHETAMINES SCREEN Negative Normal Cutoff 20 [facility] Comment on above: Performed By: #### H EPFP #### [facility] [address] [place] [address] OPIATE SCREEN Negative Normal Cutoff 20 [facility] Comment on above: Performed By: #### H EPFP #### [facility] [address] [place] [address] OXYCODONE SCREEN Negative Normal Cutoff 20 [facility] Comment on above: Performed By: #### H EPFP #### [facility] [address] [place] [address] PCP SCREEN Negative Normal Cutoff 10 [facility] Comment on above: Performed By: #### H EPFP #### [facility] [address] [place] [address] T-SPOT TBon 05-30-2022 NIL[NEG]CONTROL SPOT COUNT Passed Normal [facility] Comment on above: Performed By: #### H EPFP #### [facility] [address] [place] [address] PANEL A SPOT COUNT 0 Normal [facility] Comment on above: Performed By: #### H EPFP #### [facility] [address] [place] [address] PANEL B SPOT COUNT 2 Normal [facility] Comment on above: Performed By: #### H EPFP #### [facility] [address] [place] [address] POS CONTROL SPOT COUNT Passed Normal [facility] Comment on above: Performed By: #### H EPFP #### [facility] [address] [place] [address] T-SPOT.TB INTERP Negative Normal Normal Value: Negative [facility] Comment on above: Result Comment: A ne [...] Performed By: #### H EPFP #### [facility] [address] [place] [address] ABO/RH GROUP TESTon 05-28-20 ABO TYPE O Normal [facility] Comment on above: Performed By: #### H LAS1 #### [facility] [address] [place] [address] RH TYPE Positive Normal [facility] Comment on above: Performed By: #### H LAS1 #### [facility] [address] [place] [id number] AUTOCROSSMATCH, FLOWon 05-28 AUTOCROSSMATCH, FLOW SEE SEPARATE REPORT Normal [facility] Comment on above: Result Comment: Test performed at [facility] Histocompatibility and Immunogenetics Laboratory [facility], 6th Floor [address] [place] [address] Performed By: #### U SWETHA #### [facility] [address] [place] [address] AUTOCROSSMATCH, FLOW Canceled Normal [facility] Comment on above: Order Comment: TEST AUTOCROSSMATCH, FLOW WAS CANCELLED, 05/28/2022 13:06 Result Comment: Test performed at [facility]ocompatibility and Immunogenetics [facility], 6[facility] [address] [place] [address] Performed By: #### H EPFP #### [facility] [address] [place] [address] Blood Typing (ABO + Rho D)on 05-28-2022 ABO group Nom (Bld) O [facility] [employer] Work Phone: Rh immune globulin screen (Bld) [Interp] Positive [facility]- [facility] [employer] Work Phone: Blood Urea Nitrogen, Serumon 05-28-2022 Urea nitrogen [Mass/Vol] 47 mg/dL above high threshold 6 - 23 [facility] [employer] Work Phone: C PEPTIDEon 05-28-2022 C PEPTIDE 0.1 ng/mL Low 0.7 - 3.9 [facility] Comment on above: Performed By: #### U SWETHA #### [facility] [address] [place] [address] C Peptide, Serumon C peptide [Mass/Vol] 0.1 ng/mL below low threshold 0.7 - 3.9 [facility] [employer] Work Phone: CBCon 05-28-2022 Erythrocyte distribution width (RBC) [Ratio] 13.5 % Normal 11.5 - 14.5 [facility] Comment on above: Performed By: #### U SWETHA #### [facility] [address] [place] [address] Hematocrit (Bld) [Volume fraction] 37.0 % Normal 36.0 - 46.0 [facility] Comment on above: Performed By: #### U SWETHA #### [facility] [address] [place] [address] Hemoglobin (Bld) [Mass/Vol] 11.3 g/dL Low 12.0 - 16.0 [facility] Comment on above: Performed By: #### U SWETHA #### [facility] [address] [place] [address] MCHC (RBC) [Mass/Vol] 30.5 g/dL Low 32.0 - 36.0 [facility] Comment on above: Performed By: #### U SWETHA #### [facility] [address] [place] [address] MCV (RBC) [Entitic vol] 101 fL High 80 - 100 [facility] Comment on above: Performed By: #### U SWETHA #### [facility] [address] [place] [address] NUCLEATED RBC 0.0 /100 WBC Normal 0.0-0.0 [facility] Comment on above: Performed By: #### U WSETHA #### [facility] [address] [place] [address] Platelets (Bld) [#/Vol] 240 10*3/uL Normal 150 - 450 [facility] Comment on above: Performed By: #### U SWETHA #### [facility] [address] [place] [address] RBC 3.66 x10E12/L Low 4.00 - 5.20 [facility] Comment on above: Performed By: #### U SWETHA #### [facility] [address] [place] [address] WBC (Bld) [#/Vol] 9.3 10*3/uL Normal 4.4 - 11.3 [facility] Comment on above: Performed By: #### U SWETHA #### [facility] [address] [place] [address] CMV IGGon 05-28-2022 CMV IGG AB Reactive Abnormal NONREACTIVE [facility] Comment on above: Performed By: #### H LAS1 #### [facility] [address] [place] [address] CMV IgGon 05-28-2022 CMV IgG Reactive Abnormal See Below [facility]- [facility] [address] [address] Work Phone: Comment on above: SOURCE: Reference Ra nge: NONREACTIVE CREATININEon 05-28-2022 Creatinine [Mass/Vol] 2.19 mg/dL High 0.50 - 1.05 [facility] Comment on above: Performed By: #### H LAS1 #### [facility] [address] [place] [address] GFR/1.73 sq M.predicted among non-blacks MDRD (S/P/Bld) [Vol rate/Area] 25 mL/min/{1.73_m2} Abnormal >90 [facility] Comment on above: Result Comment: CALC ULATIONS OF ESTIMATED GFR ARE PERFORMED USING THE 2020 CKD-EPI STUDY REFIT EQUATION WITHOUT THE RACE VARIABLE FOR THE IDMS-TRACEABLE CREATININE METHODS. https://jasn.asnjournals.org/content/early/ASN.57356 09345 Performed By: #### H LAS1 #### [facility] [address] [place] [address] Creatinine, Serumon 05-28-20 Creatinine [Mass/Vol] 2.19 mg/dL above high threshold See Below [facility]- [facility] [employer] Work Phone: Comment on above: Reference Range: 0.5 0 - 1.05 Creatinine, Serum 25 {mL/min/1.73m2} Abnormal >90 [facility]-Transplant- [employer] Work Phone: Comment on above: CALCULATIONS OF EMILIO MATED GFR ARE PERFORMED USING THE 2020 CKD-EPI STUDY REFIT EQUATION WITHOUT THE RACE VARIABLE FOR THE IDMS-TRACEABLE CREATININE METHODS.https://jasn.asnjournals.org/content/early/A SN.8053617309 EBV PANELon 05-28-2022 VCA IGM ANTIBODY Negative Normal NEGATIVE [facility] Comment on above: Performed By: #### E BVP1 #### [facility] [address] [place] [address] EBV EA-D IGG ANTIBODY Negative Normal NEGATIVE [facility] Comment on above: Performed By: #### E BVP1 #### [facility] [address] [place] [address] EBV INTERPRETATION SEE BELOW Normal [facility] Comment on above: Result Comment: . EB V INTERPRETATION CHART . VCA-IGG VCA-IGM NA-IGG EA-IGG . PRIMARY ACUTE +/- +/- - +/- LATE ACUTE + +/- +/- +/- RECOVERING + - - + PREVIOUS INFECTION + - +/- - Performed By: #### E BVP1 #### [facility] [address] [place] [address] EBV NA-1 IGG ANTIBODY Positive Abnormal NEGATIVE [facility] Comment on above: Performed By: #### E BVP1 #### [facility] [address] [place] [address] VCA IGG ANTIBODY Positive Abnormal NEGATIVE [facility] Comment on above: Performed By: #### E BVP1 #### [facility] [address] [place] [address] HEMOGLOBIN A1Con 05-28-2022 Glucose [Mass/Vol] 194 mg/dL Normal [facility] Comment on above: Performed By: #### H EPFP #### [facility] [address] [place] [address] HbA1c (Bld) [Mass fraction] 8.4 % Abnormal [facility] Comment on above: Result Comment: Diag nosis of Diabetes-Adults Non-Diabetic: < or = 5.6% Increased risk for developing diabetes: 5.7-6.4% Diagnostic of diabetes: > or = 6.5% . Monitoring of Diabetes Age (y) Therapeutic Goal (%) Adults: >18 <7.0 Pediatrics: 13-18 <7.5 7-12 <8.0 0- 6 7.5-8.5 [place] [employer]. Diabetes Care 33(S1), Nov 2009. Performed By: #### H EPFP #### [facility] [address] [place] [address] HEPATIC FUNCTION PANELon Albumin [Mass/Vol] 3.5 g/dL Normal 3.4 - 5.0 [facility] Comment on above: Performed By: #### H EPFP #### [facility] [address] [place] [address] ALP [Catalytic activity/Vol] 70 U/L Normal 33 - 136 [facility] Comment on above: Performed By: #### H EPFP #### [facility] [address] [place] [address] ALT [Catalytic activity/Vol] 12 U/L Normal 7 - 45 [facility] Comment on above: Result Comment: Lauren ents treated with Sulfasalazine may generate falsely decreased results for ALT. Performed By: #### H EPFP #### [facility] [address] [place] [address] AST [Catalytic activity/Vol] 15 U/L Normal 9 - 39 [facility] Comment on above: Performed By: #### H EPFP #### [facility] [address] [place] [address] Bilirubin [Mass/Vol] 0.3 mg/dL Normal 0.0 - 1.2 [facility] Comment on above: Performed By: #### H EPFP #### [facility] [address] [place] [address] Bilirubin.indirect [Mass/Vol] 0.1 mg/dL Normal 0.0 - 0.3 [facility] Comment on above: Performed By: #### H EPFP #### [facility] [address] [place] [address] Protein [Mass/Vol] 6.0 g/dL Low 6.4 - 8.2 [facility] Comment on above: Performed By: #### H EPFP #### [facility] [address] [place] [address] HEPATITIS B CORE AB-TOTALon 05-28-2022 HEP. B CORE AB-TOTAL Non-Reactive Normal NONREACTIVE [facility] Comment on above: Result Comment: Resu lts from patients taking biotin supplements or receiving high-dose biotin therapy should be interpreted with caution due to possible interference with this test. Providers may contact their local laboratory for further information. Performed By: #### H BCRT #### [facility] [address] [place] [address] Lab Specimen Source Normal [facility] Comment on above: Performed By: #### H BCRT #### [facility] [address] [place] [address] Performed By: #### S YPHR #### [facility] [address] [place], [place] [id number] Performed By: #### H LAS1 #### [facility] [address] [place], [place] Performed By: #### U SWETHA #### [facility] [address] [place] [address] HEPATITIS B SURF ABon 2021 HEP B SURF AB <3.1 Normal <10 [facility] Comment on above: Result Comment: INTE RPRETIVE CRITERIA: <10 mIU/mL....NONREACTIVE >=10 mIU/mL...REACTIVE . Biotin interference may cause falsely decreased results. Patients taking a Biotin dose of up to 5 mg/day should refrain from taking Biotin for 24 hours before sample collection. Providers may contact their local laboratory for further information. Performed By: #### H LAS1 #### [facility] [address] [place] HEPATITIS B SURFACE AGon HEP.B SURFACE AG Non-Reactive Normal NONREACTIVE [facility] Comment on above: Result Comment: Biot in interference may cause falsely decreased results. Patients taking a Biotin dose of up to 5 mg/day should refrain from taking Biotin for 24 hours before sample collection. Providers may contact their local laboratory for further information. Performed By: #### U SWETHA #### [facility] [address] [place], [place] HEPATITIS C ABon 05-28-2022 HEPATITIS C AB Non-Reactive Normal NONREACTIVE [facility] Comment on above: Result Comment: Resu lts from patients taking biotin supplements or receiving high-dose biotin therapy should be interpreted with caution due to possible interference with this test. Providers may contact their local laboratory for further information. Performed By: #### H LAS1 #### [facility] [address] [place], [place] HIV 1/2 ANTIGEN/ANTIBODY SCR EEN WITH REFLEX TO CONFIRMATIONon 05-28-2022 HIV 1/2 AG/AB SCREEN Non-Reactive Normal NONREACTIVE [facility] Comment on above: Result Comment: HIV Ag/Ab screen is performed using the Siem[employer] HIV Ag/Ab Combo assay which detects the presence of HIV p24 antigen as well as antibodies to HIV-1 (Group M and O) and HIV-2. . No laboratory evidence of HIV infection. If acute HIV infection is suspected, consider testing for HIV RNA by PCR (viral load). Performed By: #### H LAS1 #### [facility] [address] [place] [id number] HIV 1+2 Ab Qn (S) Non-Reactive See Below [facility]- [facility] [address]elin [address] Work Phone: Comment on above: SOURCE: Reference Ra nge: NONREACTIVE HIV Ag/Ab screen is performed using the Siemens Sugar [employer] HIV Ag/Ab Combo assay which detects the presence of HIV p24 antigen as well as antibodies to HIV-1 (Group M and O) and HIV-2..No laboratory evidence of HIV infection. If acute HIV infection is suspected, consider testing for HIV RNA by PCR (viral load). HLA CLASS I AB SCREEN,FCon 0 05-28-2022 HLA CLASS I AB SCREEN,FC SEE COMMENT Normal [facility] Comment on above: Result Comment: HLA CLASS I AB SCREEN,FLOW CYTOMETRY SEE SEPARATE REPORT. Test performed at [facility] Histocompatibility and Immunogenetics Laboratory [facility], 6th Floor [address] [place] [address] Performed By: #### H LAS1 #### [facility] [address] [place] [id number] HLA CLASS I AB SCREEN,FC Canceled Normal [facility] Comment on above: Order Comment: TEST HLA CLASS I AB SCREEN,FC WAS CANCELLED, 05/28/2022 13:06 Performed By: #### H LAS1 #### [facility] [address] [place] [id number] HLA CLASS II AB SCREEN,FCon 05-28-2022 HLA CLASS II AB SCREEN,FC SEE COMMENT Normal [facility] Comment on above: Result Comment: HLA CLASS II AB SCREEN,FLOW CYTOMETRY SEE SEPARATE REPORT. Test performed at [facility] Histocompatibility and Immunogenetics Laboratory [facility], 6th Floor [address] [place] [address] Performed By: #### U SWETHA #### [facility] [address] [place] [id number] HLA CLASS II AB SCREEN,FC Canceled Normal [facility] Comment on above: Order Comment: TEST HLA CLASS II AB SCREEN,FC WAS CANCELLED, 05/28/2022 13:06 Performed By: #### H LAS1 #### [facility] [address] [place] [address] HLA-A,B,C LRon 05-28-2022 HLA-A LOCUS LR TYPE SEE COMMENT Normal [facility] Comment on above: Result Comment: HLA- A LOCUS, LOW RESOLUTION TYPE SEE SEPARATE REPORT. Performed By: #### H EPFP #### [facility] [address] [place] [address] HLA-B LOCUS LR TYPE SEE COMMENT Normal [facility] Comment on above: Result Comment: HLA- B LOCUS, LOW RESOLUTION TYPE SEE SEPARATE REPORT. Performed By: #### H EPFP #### [facility] [address] [place] [address] HLA-C LOCUS LR TYPE SEE COMMENT Normal [facility] Comment on above: Result Comment: HLA- C LOCUS, LOW RESOLUTION TYPE SEE SEPARATE REPORT. Test performed at [facility] Histocompatibility and Immunogenetics Laboratory [facility], 6th Floor [address] [place] [address] Performed By: #### H EPFP #### [facility] [address] [place] [address] HLA-A LOCUS LR TYPE Canceled Normal [facility] Comment on above: Order Comment: TEST HLA-A,B,C LR WAS CANCELLED, 05/28/2022 13:06 Performed By: #### H EPFP #### [facility] [address] [place] [address] HLA-B LOCUS LR TYPE Canceled Normal [facility] Comment on above: Order Comment: TEST HLA-A,B,C LR WAS CANCELLED, 05/28/2022 13:06 Performed By: #### H EPFP #### [facility] [address] [place] [address] HLA-C LOCUS LR TYPE Canceled Normal [facility] Comment on above: Order Comment: TEST HLA-A,B,C LR WAS CANCELLED, 05/28/2022 13:06 Performed By: #### H EPFP #### [facility] [address] [place] HLA-DPB1 HR TYPINGon 022 HLA-DPB1 HR TYPING SEE COMMENT Normal [facility] Comment on above: Result Comment: HLA- DPB1 HIGH RESOLUTION TYPING SEE SEPARATE REPORT. Test performed at [facility] Histocompatibility and Immunogenetics Laboratory [facility], 6th Floor [address] [place] [address] Performed By: #### D PBHT #### [facility] [address] [place] [id number] HLA-DPB1 HR TYPING Canceled Normal [facility] Comment on above: Order Comment: TEST HLA-DPB1 HR TYPING WAS CANCELLED, 05/28/2022 13:06 Performed By: #### D PBHT #### [facility] [address] [place] [id number] HLA-DQB1 HR TYPINGon 022 HLA-DQB1 HR TYPING SEE COMMENT Normal [facility] Comment on above: Result Comment: HLA- DQB1 HIGH RESOLUTION TYPING SEE SEPARATE REPORT. Test performed at [facility] Histocompatibility and Immunogenetics Laboratory [facility], 6th Floor [address] [place] [address] Performed By: #### D QBHT #### [facility] [address] [place] [id number] HLA-DQB1 HR TYPING Canceled Normal [facility] Comment on above: Order Comment: TEST HLA-DQB1 HR TYPING WAS CANCELLED, 05/28/2022 13:06 Performed By: #### H EPFP #### [facility] [address] [place] [id number] HLA-DRB1/3/4/5 AND DQB1 LR T YPINGon 05-28-2022 HLA-DRB1/3/4/5 & DQB1 LR TYPING SEE COMMENT Normal [facility] Comment on above: Result Comment: HLA- DRB1/3/4/5 AND DQB1 LOW RESOLUTION TYPING SEE SEPARATE REPORT. Test performed at [facility] Histocompatibility and Immunogenetics Laboratory [facility], 6th Floor [address] [place] [address] Performed By: #### H EPFP #### [facility] [address] [facility] [address] [place] [id number] HLA-DRB1/3/4/5 & DQB1 LR TYPING Canceled Normal [facility] Comment on above: Order Comment: TEST HLA-DRB1/3/4/5 AND DQB1 LR TYPING WAS CANCELLED, 05/28/2022 13:06 Performed By: #### H EPFP #### [facility] [address] [address] [place] [id number] Hemoglobin A1Con 05-28-2022 Glucose [Mass/Vol] 194 mg/dL [facility] Work Phone: HbA1c (Bld) [Mass fraction] 8.4 % Abnormal [facility] Work Phone: Comment on above: Diagnosis of Diabete s-Adults Non-Diabetic: < or = 5.6% Increased risk for developing diabetes: 5.7-6.4% Diagnostic of diabetes: > or = 6.5%. Monitoring of Diabetes Age (y) Therapeutic Goal (%) Adults: >18 <7.0 Pediatrics: 13-18 <7.5 7-12 <8.0 0- 6 7.5-8.5 [employer] [employer]. Diabetes Care 33(S1), Nov 2009. Hepatic Function Panelon Albumin BCP dye [Mass/Vol] 3.5 g/dL 3.4 - 5.0 [facility]-Transplant- [email or web address] Work Phone: ALP [Catalytic activity/Vol] 70 U/L 33 - 136 [facility]-Transplant- [email or web address] Work Phone: ALT With P-5'-P [Catalytic activity/Vol] 12 U/L 7 - 45 [facility]-Transplant- [email or web address] Work Phone: Comment on above: Patients treated wit h Sulfasalazine may generate falsely decreased results for ALT. AST With P-5'-P [Catalytic activity/Vol] 15 U/L 9 - 39 [facility]-Transplant- [email or web address] Work Phone: Bilirubin [Mass/Vol] 0.3 mg/dL 0.0 - 1.2 MG-T ransplant- [facility] [address] Work Phone: Bilirubin.direct [Mass/Vol] 0.1 mg/dL 0.0 - 0.3 MG-Transplant- [facility] [address] Work Phone: Protein [Mass/Vol] 6.0 g/dL below low threshold 6.4 - 8.2 [facility]-Transplant- [facility] [address] Work Phone: Hepatitis B Core Antibody, T otalon 05-28-2022 Hepatitis B Core Antibody, Total Non-Reactive See Below [facility]-Transplant- [facility] [address] Work Phone: Comment on above: [...] surface Ag IA Ql <3.1 <10 [facility] [employer] Work Phone: Comment on above: SOURCE: INTERPRETIVE CRITERIA:<10 mIU/mL....NONREACTIVE >=10 mIU/mL...REACTIVE . Biotin interference may cause falsely decreased results. Patients taking a Biotin dose of up to 5 mg/day should refrain from taking Biotin for 24 hours before sample collection. Providers may contact their local laboratory for further information. Laboratory - Drug toxicology on 05-28-2022 Amphetamines Screen Ql Negative Cutoff 20 MG -Transplant- [facility] Work Phone: Barbiturates Screen Ql Negative Cutoff 50 MG -Transplant- [facility] Work Phone: Benzodiazepines Screen Ql Negative Cutoff 50 MG-Transplant- [facility] Work Phone: Cannabinoids Screen Ql Negative Cutoff 20 MG -Transplant- [facility] Work Phone: Cocaine Screen Ql Negative Cutoff 20 MG-Mora splant- [facility] Work Phone: Methadone Screen Ql Negative Cutoff 25 MG-Tr ansplant- [facility] Work Phone: Methamphetamine Ql Negative Cutoff 20 MG-Tra nsplant- [facility] Work Phone: Opiates Screen Ql Negative Cutoff 20 MG-Mora splant- [facility] Work Phone: oxyCODONE Ql Negative Cutoff 20 MG-Transplan t- [facility] Work Phone: Phencyclidine Screen Ql Negative Cutoff 10 MG-Transplant- [facility] Work Phone: Laboratory - HLA antigenson 05-28-2022 HLA-A locus Nom (Bld/Tiss) SEE COMMENT [facility] [employer] Work Phone: Comment on above: HLA-A LOCUS, LOW RES OLUTION TYPE SEE SEPARATE REPORT. HLA-B locus Nom (Bld/Tiss) SEE COMMENT [facility] [employer] Work Phone: Comment on above: HLA-B LOCUS, LOW RES OLUTION TYPE SEE SEPARATE REPORT. HLA-C locus Nom (Bld/Tiss) SEE COMMENT [facility] [employer] Work Phone: Comment on above: HLA-C LOCUS, LOW RES OLUTION TYPE SEE SEPARATE REPORT.Test performed at [facility] Histocompatibility and Immunogenetics Laboratory [facility], 6th Floor [address] [place] [address] HLA-DP2 Ql (Bld/Tiss) SEE COMMENT [facility] [employer] Work Phone: Comment on above: HLA-DPB1 HIGH RESOLU TION TYPING SEE SEPARATE REPORT.Test performed at [facility] Histocompatibility and Immunogenetics Laboratory [facility], 6th Floor [address] [place] [address] HLA-DQB1 High resolution Nom (Bld/Tiss) SEE COMMENT [facility] [employer] Work Phone: Comment on above: HLA-DQB1 HIGH RESOLU TION TYPING SEE SEPARATE REPORT.Test performed at [facility] Histocompatibility and Immunogenetics Laboratory [facility], 6th [facility] [address] [place] [address] HLA-DR+DQ Nom (Bld/Tiss) SEE COMMENT [facility]-Trans[facility]- [facility] Work Phone: Comment on above: HLA-DRB1/3/4/5 & DQB 1 LOW RESOLUTION TYPING SEE SEPARATE REPORT.Test performed at [facility] Histocompatibility and Immunogenetics [facility], 6th Floor [address] [place] [address] HLA-A locus Nom (Bld/Tiss) Canceled [facility]-Transplant- [facility] Work Phone: HLA-B locus Nom (Bld/Tiss) Canceled [facility]-Transplant- [facility] Work Phone: HLA-C locus Nom (Bld/Tiss) Canceled MG-Transplant- [facility] [address] Work Phone: HLA-DP2 Ql (Bld/Tiss) Canceled MG- Transplant- [facility] Work Phone: HLA-DQB1 High resolution Nom (Bld/Tiss) Canceled MG-Transplant- [facility] [address] Work Phone: HLA-DR+DQ Nom (Bld/Tiss) Canceled MG-Transplant- [facility] [address] Work Phone: Laboratory - Hematology and Cell countson 05-28-2022 Erythrocyte distribution width (RBC) [Ratio] 13.5 % See Below [facility]-Transplant- [facility] [address] Work Phone: Comment on above: Reference Range: 11. 5 - 14.5 Hematocrit (Bld) [Volume fraction] 37.0 % See Below [facility]-Transplant- [facility] [address] Work Phone: Comment on above: Reference Range: 36. 0 - 46.0 Hemoglobin (Bld) [Mass/Vol] 11.3 g/dL below low threshold See Below [facility]-Trans[facility]- [facility] [address] Work Phone: Comment on above: Reference Range: 12. 0 - 16.0 MCHC (RBC) [Mass/Vol] 30.5 g/dL below low threshold See Below [facility]-Transplant- [facility] [address] Work Phone: Comment on above: Reference Range: 32. 0 - 36.0 MCV (RBC) [Entitic vol] 101 fL above high threshold 80 - 100 [facility]-Transplant- [facility] [address] Work Phone: Platelets (Bld) [#/Vol] 240 10*3/uL 150 - 450 [facility]-Transplant- [facility] [address] Work Phone: RBC (Bld) [#/Vol] 3.66 {x10E12/L} below low threshold See Below [facility]-Transplant- [facility] [address] Work Phone: Comment on above: Reference Range: 4.0 0 - 5.20 WBC (Bld) [#/Vol] 9.3 10*3/uL 4.4 - 11.3 MG-Tra nsplant- [facility] [address]99 Work Phone: Laboratory - Microbiology an d Antimicrobial susceptibilityon 05-28-2022 EBV capsid IgG IA Qn (S) Positive Abnormal NEGATIVE MG-Transplant- [facility] [address] Work Phone: EBV capsid IgM IA Qn (S) Negative NEGATIVE MG-Transplant- [facility] [address] Work Phone: EBV early IgM IA Qn (S) Negative NEGATIVE MG-Transplant- [facility] [address] Work Phone: EBV nuclear IgG IA Qn (S) Positive Abnormal NEGATIVE MG-Transplant- [facility] [address] Work Phone: Nicotine+Metabolites, Serumo n 05-28-2022 Cotinine [Mass/Vol] 194 ng/mL [facility] Work Phone: Nicotine [Mass/Vol] 7 ng/mL [facility] Work Phone: Comment on above: Consistent with use of a nicotine-containing product aucynb87 hours of specimen collection. Nicotine is metabolizedto cotinine and 0-IQ-zaatulta.INTERPRETIVE INFORMATION: Nicotine and Metabolites, Serum or Plasma, [...] developed and its performance characteristics determined by [employer]. It has not been cleared or approved by the [place] Food and Drug Administration. This test was performed in a CLIA certified laboratory and is intended for clinical purposes.Performed By: [facility] [place] [address] [id number] Director: Fabrizio Cruz MD, PhD [id number] e [Mass/Vol] 156 ng/mL -Transplant- [facility] Work Phone: No Panel Informationon 05-28 SEE COMMENT -Transplant - [email or web address] [address] Work Phone: Comment on above: HLA CLASS I AB SCREE N,FLOW CYTOMETRY SEE SEPARATE REPORT.Test performed at [facility] Histocompatibility and Immunogenetics Laboratory [facility], 6th Floor [address] [place] [address] HLA CLASS II AB SCRE EN,FLOW CYTOMETRY SEE SEPARATE REPORT.Test performed at [facility] Histocompatibility and Immunogenetics Laboratory [facility], 6th Floor [address] [place] [address] SEE SEPARATE REPORT MG-Tr ansplant- [email or web address] [address] Work Phone: Comment on above: Test performed at [facility] Histocompatibility and Immunogenetics Laboratory [facility], 6th Floor [address] [place] [address] Annotation comment [Interpretation] Narrative See Note -Transplant- [facility] Work Phone: Comment on above: INTERPRETIVE [...] developed and its performance characteristics determined by [employer]. It has not been cleared or approved by the US Food and Drug Administration. This test was performed in a CLIA certified laboratory and is intended for clinical purposes.Performed By: [facility] [place] [id number] Director: Fabrizio Cruz MD, PhD 0.0 {/100_WBC} 0.0-0.0 MG-Transpl ant- [email or web address] Work Phone: SEE BELOW [facility]-Transplant- [email or web address] Work Phone: Comment on above: . EBV INTERPRETATION CHART. VCA-IGG VCA-IGM NA-IGG EA-IGG. PRIMARY ACUTE +/- +/- - +/-LATE ACUTE + +/- +/- +/-RECOVERING + - - +PREVIOUS INFECTION + - +/- - Canceled [facility]-Transplant- [email or web address] [address] Work Phone: Comment on above: Test performed at [facility] Histocompatibility and Immunogenetics Laboratory [facility], 6th Floor [address] [place] [address] Office VIsit (Pre-Transplant Surgery)on 05-28-2022 Follow-up visit Diagnosis/Problems Assessed Pre-transplant evaluation for kidney transplant (V72.83) (Z01.818) History of end stage renal disease (V13.09) (Z87.448) History of diabetes mellitus (V12.29) (Z86.39) History of chronic obstructive lung disease (V12.69) (Z87.09) History of coronary artery disease (V12.59) (Z86.79) History of Appendectomy History of Hysterectomy Current smoker (305.1) (F17.200) Has access to [employer] Health insurance coverage Living Situation: Supportive [...] for: Provider has reviewed the risk of gerrad COVID-19 and the impact during the post-operative [...] Bird Lujan. Referral: Dr. Christy Huerta (tel: [phone] fax: [phone]). I am seeing SANDY DENG at the referring provider's request for surgical suitability for renal transplant candidate listing at [facility]. History of Present Illness Comments: Ms. SANDY [...] [Mass/Vol] 5.3 mg/dL High 2.5 - 4.9 [facility] Comment on above: Result Comment: The performance characteristics of phosphorus testing in heparinized plasma have been validated by the individual laboratory site where testing is performed. Testing on heparinized plasma is not approved by the FDA; however, such approval is not necessary. Performed By: #### H LAS1 #### [facility] [address] [place] [address] Phosphorus, Serumon 05-28-20 22 Phosphate [Mass/Vol] 5.3 mg/dL above high threshold 2.5 - 4.9 [facility]- [facility] [employer] Work Phone: Comment on above: The performance armond acteristics of phosphorus testing in heparinized plasma have been validated by the individual laboratory site where testing is performed. Testing on heparinized plasma is not approved by the FDA; however, such approval is not necessary. SYPHILIS SCREENING WITH REFL EXon 05-28-2022 SYPHILIS TOTAL AB Non-Reactive Normal NONREACTIVE [facility] Comment on above: Result Comment: No s ignificant level of Treponema pallidum antibody detected. Repeat testing in 2 to 4 weeks may be considered if early infection or incubating syphilis infection is suspected. Performed By: #### S [place]PH[place] #### [place] [address] [address] [place], [place] [id number] T. pallidum IgG+IgM IA Ql (S) Non-Reactive See Below [facility]- [facility] [employer] Work Phone: Comment on above: SOURCE: Reference Ra nge: NONREACTIVENo significant level of Treponema pallidum antibody detected. Repeat testing in 2 to 4 weeks may be considered if early infection or incubating syphilis infection is suspected. T-SPOT. TBon 05-28-2022 T-SPOT. TB Passed MG-Transplant- [facility] Work Phone: T-SPOT. TB 2 1 MG-Transplant- [facility] Work Phone: T-SPOT. TB 0 1 MG-Transplant- [facility] Work Phone: Tobacco Screening.on 022 Fall risk assessment a) No falls within the last year MG-Transplant- [facility] [email or web address] [address] Work Phone: Tobacco use status CP a) Yes MG-Transplant- [email or web address] Work Phone: Tobacco Screening. Yes MG-Tra nsplant- [facility] [employer] Work Phone: UA MICROSCOPICon 05-28-2022 Mucus Ql (Urine sed) 1+ /LPF Normal [facility] Comment on above: Performed By: #### U SWETHA #### [facility] [address] [place] [address] RBC 2 /HPF Normal 0-5 [facility] Comment on above: Performed By: #### U SWETHA #### [facility] [address] [place] [address] SQUAMOUS EPITH. CELLS 3 /HPF Normal [facility] Comment on above: Performed By: #### U SWETHA #### [facility] [address] [place] [address] WBC 12 /HPF Abnormal 0-5 [facility] Comment on above: Performed By: #### U SWETHA #### [facility] [address] [place] [address] UREA NITROGENon 05-28-2022 Urea nitrogen [Mass/Vol] 47 mg/dL High 6 - 23 [facility] Comment on above: Performed By: #### U SWETHA #### [facility] [address] [place] [address] URINALYSISon 05-28-2022 Appearance (U) CLEAR Normal CLEAR [facility] Comment on above: Performed By: #### H LAS1 #### [facility] [address] [place] [address] Bilirubin Ql (U) Negative Normal NEGATIVE [facility] Comment on above: Performed By: #### H LAS1 #### [facility] [address] [place] [address] Color (U) YELLOW Normal STRAW,YELLOW [facility] Comment on above: Performed By: #### H LAS1 #### [facility] [address] [place] [address] Glucose Ql (U) Negative Normal NEGATIVE [facility] Comment on above: Performed By: #### H LAS1 #### [facility] [address] [place] [address] Hemoglobin Ql (U) Negative Normal NEGATIVE [facility] Comment on above: Performed By: #### H LAS1 #### [facility] [address] [place] [address] Ketones Ql (U) Negative Normal NEGATIVE [facility] Comment on above: Performed By: #### H LAS1 #### [facility] [address] [place] [address] Leukocyte esterase Test strip Ql (U) SMALL (1+) Abnormal NEGATIVE [facility] Comment on above: Performed By: #### H LAS1 #### [facility] [address] [place] [address] Nitrite Ql (U) Negative Normal NEGATIVE [facility] Comment on above: Performed By: #### H LAS1 #### [facility] [address] [place] [address] pH (U) 5.0 [pH] Normal 5.0 - 8.0 [facility] Comment on above: Performed By: #### H LAS1 #### [facility] [address] [place] [address] Protein Ql (U) 100 (2+) Abnormal NEGATIVE [facility] Comment on above: Performed By: #### H LAS1 #### [facility] [address] [place] [address] Specific gravity (U) [Rel density] 1.016 Normal 1.005 - 1.035 [facility] Comment on above: Performed By: #### H LAS1 #### [facility] [address] [place] [address] Urobilinogen (U) [Mass/Vol] mg/dL Normal 0.0 - 1.9 [facility] Comment on above: Performed By: #### H LAS1 #### [facility] [address] [place] [address] Urinalysison 05-28-2022 Color (U) YELLOW See Below MG-Transplant- [facility] [employer] Work Phone: Comment on above: Reference Range: STR AW,YELLOW Glucose Ql (U) Negative NEGATIVE MG-Transpl ant- [facility] [address] Work Phone: Ketones Ql (U) Negative NEGATIVE MG-Transpl ant- [facility] [address] Work Phone: Leukocyte esterase Test strip Ql (U) SMALL (1+) Abnormal NEGATIVE MG-Transplant- [facility] [address] Work Phone: pH (U) 5.0 [pH] 5.0 - 8.0 MG-Transplant- [facility] [address] Work Phone: Protein (U) [Mass/Vol] 100 (2+) Abnormal NEGATIVE MG -Transplant- [facility] [address] Work Phone: RBC (U) [#/Vol] Negative NEGATIVE [facility]-Transp lant- [facility] [employer] Work Phone: Specific gravity (U) [Rel density] 1.016 1 See Below [facility]-Transplant- [facility] Work Phone: Comment on above: Reference Range: 1.0 05 - 1.035 Urinalysis Negative NEGATIVE MG-Transplant- [facility] [employer] Work Phone: Comment on above: Reference Range: [...] Urinalysis <2.0 0.0 - 1.9 [facility]Transplant- [email or web address] Work Phone: Urinalysis CLEAR CLEAR [facility]-Transplant- [facility] [address] Work Phone: Urinalysis, Microscopicon Urinalysis, Microscopic 1+ [facility]-Transplant- [email or web address] Work Phone: Urinalysis, Microscopic 3 {/HPF} MG-Transplant- [facility] [address] Work Phone: Urinalysis, Microscopic 2 {/HPF} 0-5 [facility]-Transplant- [email or web address] Work Phone: Urinalysis, Microscopic 12 {/HPF} Abnormal 0-5 [facility]Transplant- [email or web address] Work Phone: VARICELLA ZOSTER IGG ABon VARICELLA ZOSTER IGG AB Positive Normal NEGATIVE [facility] Comment on above: Result Comment: INTE RPRETATIVE [...] assays. Performed By: #### H LAS1 #### [facility] [address] [place] [address] Varicella Zoster IgG Antibod yon 05-28-2022 VZV IgG IA Ql (S) Positive NEGATIVE MG-Mora splant- [email or web address] Work Phone: Comment on above: INTERPRETATIVE [...] percentageon 2021 Basophil percentage 3.2 mg/dL 2.5-4.9 [facility] Work Phone: Chloride [Moles/Vol] 104 mmol/L 98-107 [facility] Work Phone: Glucose [Mass/Vol] 92 mg/dL 74-106 [facility] Work Phone: Potassium [Moles/Vol] 4.3 mmol/L 3.5-5.1 [facility] Work Phone: Sodium [Moles/Vol] 137 mmol/L 136-145 [facility] Work Phone: WBC (Bld) [#/Vol] 9.6 10*3/uL 4.4-11.0 [facility] Work Phone: Blood erythrocytes count (nu mber/volume)on 05-02-2022 RBC (Bld) [#/Vol] 4.06 10*6/uL 4.2-5.4 [facility] Work Phone: Blood hemoglobin measurement (mass/volume)on 05-02-2022 Hemoglobin (Bld) [Mass/Vol] 12.1 g/dL 12.0-15.0 [facility] Work Phone: Blood platelet mean volumeon 05-02-2022 Platelet mean volume (Bld) [Entitic vol] 9.5 fL 6.2-12.0 [facility] Work Phone: Determination of erythrocyte mean corpuscular volume (MCV)on 05-02-2022 MCV (RBC) [Entitic vol] 95.3 fL 81-99 [facility] Work Phone: Hematocrit Auto (Bld) [Volum e fraction]on 05-02-2022 Hematocrit (Bld) [Volume fraction] 38.7 % 37-47 [facility] Work Phone: Laboratory - Chemistry and C hemistry - challengeon 05-02-2022 CO2 [Moles/Vol] 29.0 mmol/L 21.0-32.0 [facility] Work Phone: Urea nitrogen/Creatinine [Mass ratio] 21.2 mg/mg 10-20 [facility] Work Phone: Laboratory - Hematology and Cell countson 05-02-2022 Erythrocyte distribution width (RBC) [Entitic vol] 46.5 fL 35.1-43.9 [facility] Work Phone: Erythrocyte distribution width (RBC) [Ratio] 13.2 % 11.6-14.6 [facility] Work Phone: MCH (RBC) [Entitic mass] 29.8 pg 27.0-32.0 [facility] Work Phone: MCHC Auto (RBC) [Mass/Vol]on 05-02-2022 MCHC (RBC) [Mass/Vol] 31.3 g/dL 32-36 [facility] Work Phone: No Panel Informationon 05-02 Estimated GFR (MDRD) Amer 35 mL/min >60 [facility] Work Phone: Comment on above: GFR Calc Estimated GFR (MDRD) Non-Af Amer 29 mL/min >60 [facility] Work Phone: Comment on above: Non- GFR Calc Parathyroid Hormone (Intact) 40.1 pg/mL 18.4-80.1 [facility] Work Phone: Platelets bldon 05-02-2022 Platelets (Bld) [#/Vol] 268 10*3/uL 150-450 [facility] Work Phone: Serum or plasma albumin lesly urement (mass/volume)on 05-02-2022 Albumin [Mass/Vol] 3.4 g/dL 3.2-5.0 [facility] Work Phone: Serum or plasma calcium lesly urement (mass/volume)on 05-02-2022 Calcium [Mass/Vol] 9.7 mg/dL 8.5-10.1 [facility] Work Phone: Serum or plasma creatinine m easurement (mass/volume)on 05-02-2022 Creatinine [Mass/Vol] 1.89 mg/dL 0.55-1.02 [facility] Work Phone: Comment on above: The validity of the calculated GFR & GFRAA in patients over 70 years has not been determined. Clinical correlation is essential. Serum or plasma urea nitroge n measurement (mass/volume)on 05-02-2022 Urea nitrogen [Mass/Vol] 40 mg/dL 7-18 [facility] Work Phone: Urine creatinine measurement (mass/volume)on 05-02-2022 Creatinine (U) [Mass/Vol] 72.60 mg/dL NO RANGE EST. [facility] Work Phone: Urine protein measurement (m ass/volume)on 05-02-2022 Protein (U) [Mass/Vol] 114.6 mg/dL 0.0-11.8 [facility] Work Phone: Urine protein/creatinine mas s ratioon 05-02-2022 Protein/Creatinine (U) [Mass ratio] 1579 mg/g CRE 0-200 [facility] Work Phone: Absolute lymphocyte counton 02-08-2022 Lymphocytes Auto (Unsp spec) [#/Vol] 1.86 10*3/uL 0.83-4.51 [facility] Work Phone: Basophil percentageon 2021 Amylase [Catalytic activity/Vol] 57 U/L 25-115 [facility] Work Phone: Basophils/100 WBC (Bld) 0.7 % 0-1 [facility] Work Phone: Bilirubin [Mass/Vol] 0.30 mg/dL 0.20-1.00 [facility] Work Phone: Comment on above: For patients on eltr ombopag therapy, use of Dimension [place] TBIL is not recommended. Chloride [Moles/Vol] 106 mmol/L 98-107 [facility] Work Phone: Eosinophils/100 WBC (Bld) 5.6 % 0-5 [facility] Work Phone: Glucose [Mass/Vol] 180 mg/dL 74-106 [facility] Work Phone: Comment on above: Fasting Glucose resu lt greater than or equal to 126 mg/dL suggests DIABETES MELLITUS per A.D.A. criteria. Neutrophils (Bld) [#/Vol] 5.1 10*3/uL 2.0-7.7 [facility] Work Phone: Neutrophils/100 WBC (Bld) 63.4 % 47-70 [facility] Work Phone: Potassium [Moles/Vol] 5.1 mmol/L 3.5-5.1 [facility] Work Phone: Protein [Mass/Vol] 7.7 g/dL 6.4-8.2 [facility] Work Phone: Sodium [Moles/Vol] 136 mmol/L 136-145 [facility] Work Phone: WBC (Bld) [#/Vol] 8.1 10*3/uL 4.4-11.0 [facility] Work Phone: Blood erythrocytes count (nu mber/volume)on 02-08-2022 RBC (Bld) [#/Vol] 4.10 10*6/uL 4.2-5.4 [facility] Work Phone: Blood hemoglobin measurement (mass/volume)on 02-08-2022 Hemoglobin (Bld) [Mass/Vol] 11.9 g/dL 12.0-15.0 [facility] Work Phone: Blood lymphocytes/100 leukoc yteson 02-08-2022 Lymphocytes/100 WBC (Bld) 23.0 % 19-41 [facility] Work Phone: Blood monocytes/100 leukocyt eson 02-08-2022 Monocytes/100 WBC (Bld) 6.9 % 0-10 [facility] Work Phone: Blood platelet mean volumeon 02-08-2022 Platelet mean volume (Bld) [Entitic vol] 9.9 fL 6.2-12.0 [facility] Work Phone: Determination of erythrocyte mean corpuscular volume (MCV)on 02-08-2022 MCV (RBC) [Entitic vol] 94.1 fL 81-99 [facility] Work Phone: Hematocrit Auto (Bld) [Volum e fraction]on 02-08-2022 Hematocrit (Bld) [Volume fraction] 38.6 % 37-47 [facility] Work Phone: Laboratory - Chemistry and C hemistry - challengeon 02-08-2022 ALP [Catalytic activity/Vol] 87 U/L 45-117 [facility] Work Phone: ALT [Catalytic activity/Vol] 16 U/L 13-56 [facility] Work Phone: CO2 [Moles/Vol] 27.0 mmol/L 21.0-32.0 [facility] Work Phone: Globulin (S) [Mass/Vol] 4.3 g/dL 2.2-4.2 [facility] Work Phone: Lipase [Catalytic activity/Vol] 55 U/L 73-393 [facility] Work Phone: Urea nitrogen/Creatinine [Mass ratio] 20.6 mg/mg 10-20 [facility] Work Phone: Laboratory - Hematology and Cell countson 02-08-2022 Erythrocyte distribution width (RBC) [Entitic vol] 46.5 fL 35.1-43.9 [facility] Work Phone: Erythrocyte distribution width (RBC) [Ratio] 13.3 % 11.6-14.6 [facility] Work Phone: Immature granulocytes/100 WBC (Bld) 0.400 % 0.0-0.9 [facility] Work Phone: Comment on above: IG% - Immature Granu locytes (promyelocytes, myelocytes and metamyelocytes) > 1% indicates that a LEFT SHIFT is Present. MCH (RBC) [Entitic mass] 29.0 pg 27.0-32.0 [facility] Work Phone: Nucleated RBC/100 WBC (Bld) [Ratio] 0 % 0-5 [facility] Work Phone: MCHC Auto (RBC) [Mass/Vol]on 02-08-2022 MCHC (RBC) [Mass/Vol] 30.8 g/dL 32-36 [facility] Work Phone: No Panel Informationon 02-08 Estimated GFR (MDRD) Amer 28 mL/min >60 [facility] Work Phone: Comment on above: GFR Calc Estimated GFR (MDRD) Non-Af Amer 23 mL/min >60 [facility] Work Phone: Comment on above: Non- GFR Calc Platelets bldon 02-08-2022 Platelets (Bld) [#/Vol] 235 10*3/uL 150-450 [facility] Work Phone: Serum or plasma albumin lesly urement (mass/volume)on 02-08-2022 Albumin [Mass/Vol] 3.4 g/dL 3.2-5.0 [facility] Work Phone: Serum or plasma albumin/glob ulin mass ratioon 02-08-2022 Albumin/Globulin [Mass ratio] 0.8 {ratio} 0.9-2.4 [facility] Work Phone: Serum or plasma calcium lesly urement (mass/volume)on 02-08-2022 Calcium [Mass/Vol] 9.6 mg/dL 8.5-10.1 [facility] Work Phone: Serum or plasma creatinine m easurement (mass/volume)on 02-08-2022 Creatinine [Mass/Vol] 2.28 mg/dL 0.55-1.02 [facility] Work Phone: Comment on above: The validity of the calculated GFR & GFRAA in patients over 70 years has not been determined. Clinical correlation is essential. Serum or plasma urea nitroge n measurement (mass/volume)on 02-08-2022 Urea nitrogen [Mass/Vol] 47 mg/dL 7-18 [facility] Work Phone: Thin prep Papanicolaou smear with manual screeningon 02-08-2022 Thin prep Papanicolaou smear with manual screening 16 U/L 15-37 [facility] Work Phone: Thin prep Papanicolaou smear with manual screening 3 5-15 [facility] Work Phone: Laboratory - Hematology and Cell countson 01-10-2022 HbA1c (Bld) [Mass fraction] 7.9 % [facility] Work Phone: Basophil percentageon 2021 Basophil percentage 4.8 mg/dL 2.5-4.9 [facility] Work Phone: Chloride [Moles/Vol] 108 mmol/L 98-107 [facility] Work Phone: Glucose [Mass/Vol] 204 mg/dL 74-106 [facility] Work Phone: Comment on above: Glucose result great er than or equal to 200 mg/dLsuggests DIABETES MELLITUS per A.D.A. criteria. Potassium [Moles/Vol] 4.7 mmol/L 3.5-5.1 [facility] Work Phone: Sodium [Moles/Vol] 138 mmol/L 136-145 [facility] Work Phone: WBC (Bld) [#/Vol] 7.8 10*3/uL 4.4-11.0 [facility] Work Phone: Blood erythrocytes count (nu mber/volume)on 12-24-2021 RBC (Bld) [#/Vol] 3.67 10*6/uL 4.2-5.4 [facility] Work Phone: Blood hemoglobin measurement (mass/volume)on 12-24-2021 Hemoglobin (Bld) [Mass/Vol] 10.9 g/dL 12.0-15.0 [facility] Work Phone: Blood platelet mean volumeon 12-24-2021 Platelet mean volume (Bld) [Entitic vol] 9.8 fL 6.2-12.0 [facility] Work Phone: Determination of erythrocyte mean corpuscular volume (MCV)on 12-24-2021 MCV (RBC) [Entitic vol] 92.1 fL 81-99 [facility] Work Phone: Hematocrit Auto (Bld) [Volum e fraction]on 12-24-2021 Hematocrit (Bld) [Volume fraction] 33.8 % 37-47 [facility] Work Phone: Laboratory - Chemistry and C hemistry - challengeon 12-24-2021 CO2 [Moles/Vol] 25.0 mmol/L 21.0-32.0 [facility] Work Phone: Urea nitrogen/Creatinine [Mass ratio] 23.2 mg/mg 10-20 [facility] Work Phone: Laboratory - Hematology and Cell countson 12-24-2021 Erythrocyte distribution width (RBC) [Entitic vol] 47.2 fL 35.1-43.9 [facility] Work Phone: Erythrocyte distribution width (RBC) [Ratio] 14.0 % 11.6-14.6 [facility] Work Phone: MCH (RBC) [Entitic mass] 29.7 pg 27.0-32.0 [facility] Work Phone: MCHC Auto (RBC) [Mass/Vol]on 12-24-2021 MCHC (RBC) [Mass/Vol] 32.2 g/dL 32-36 [facility] Work Phone: No Panel Informationon 12-24 Estimated GFR (MDRD) Amer 36 mL/min >60 [facility] Work Phone: Comment on above: GFR Calc Estimated GFR (MDRD) Non-Af Amer 29 mL/min >60 [facility] Work Phone: Comment on above: Non- GFR Calc Parathyroid Hormone (Intact) 55.7 pg/mL 18.4-80.1 [facility] Work Phone: Vitamin D 25-Hydroxy 45.6 ng/mL [facility] Work Phone: Comment on above: Vitamin D 25(OH) Sta tus Range Deficiency <20 ng/mL (50nmol/L) Insufficiency 20 - 30 ng/mL (50 - 75 nmol/L) Sufficiency 30 - 100 ng/mL (75 - 250 nmol/L) Toxicity >100 ng/mL (>250 nmol/L) Platelets bldon 12-24-2021 Platelets (Bld) [#/Vol] 225 10*3/uL 150-450 [facility] Work Phone: Serum or plasma albumin lesly urement (mass/volume)on 12-24-2021 Albumin [Mass/Vol] 3.2 g/dL 3.2-5.0 [facility] Work Phone: Serum or plasma calcium lesly urement (mass/volume)on 12-24-2021 Calcium [Mass/Vol] 8.9 mg/dL 8.5-10.1 [facility] Work Phone: Serum or plasma creatinine m easurement (mass/volume)on 12-24-2021 Creatinine [Mass/Vol] 1.85 mg/dL 0.55-1.02 [facility] Work Phone: Comment on above: The validity of the calculated GFR & GFRAA in patients over 70 years has not been determined. Clinical correlation is essential. Serum or plasma urea nitroge n measurement (mass/volume)on 12-24-2021 Urea nitrogen [Mass/Vol] 43 mg/dL 7-18 [facility] Work Phone: Basophil percentageon 2021 Bilirubin [Mass/Vol] 0.30 mg/dL 0.20-1.00 [facility] Work Phone: Comment on above: For patients on eltr ombopag therapy, use of Dimension [place] TBIL is not recommended. Chloride [Moles/Vol] 104 mmol/L 98-107 [facility] Work Phone: Cholesterol [Mass/Vol] 119 mg/dL <200 [facility] Work Phone: Comment on above: <200 mg/dL Desirable 200-240 mg/dL Borderline >240 mg/dL High Risk Glucose [Mass/Vol] 293 mg/dL 74-106 [facility] Work Phone: Comment on above: Glucose result great er than or equal to 200 mg/dLsuggests DIABETES MELLITUS per A.D.A. criteria. Potassium [Moles/Vol] 5.0 mmol/L 3.5-5.1 [facility] Work Phone: Protein [Mass/Vol] 7.2 g/dL 6.4-8.2 [facility] Work Phone: Sodium [Moles/Vol] 136 mmol/L 136-145 [facility] Work Phone: Triglyceride [Mass/Vol] 79 mg/dL [facility] Work Phone: Comment on above: The drugs N-Acetylcy steine and Metamizole may falsely depress this assay.Serum Triglycerides Reference Interval Normal <150 mg/dL Borderline high 150 - 199 mg/dL High 200 - 499 mg/dL Very High > or = 500 mg/dL WBC (Bld) [#/Vol] 6.4 10*3/uL 4.4-11.0 [facility] Work Phone: Blood erythrocytes count (nu mber/volume)on 12-19-2021 RBC (Bld) [#/Vol] 3.58 10*6/uL 4.2-5.4 [facility] Work Phone: Blood hemoglobin measurement (mass/volume)on 12-19-2021 Hemoglobin (Bld) [Mass/Vol] 10.4 g/dL 12.0-15.0 [facility] Work Phone: Blood platelet mean volumeon 12-19-2021 Platelet mean volume (Bld) [Entitic vol] 10.6 fL 6.2-12.0 [facility] Work Phone: Determination of erythrocyte mean corpuscular volume (MCV)on 12-19-2021 MCV (RBC) [Entitic vol] 93.9 fL 81-99 [facility] Work Phone: Hematocrit Auto (Bld) [Volum e fraction]on 12-19-2021 Hematocrit (Bld) [Volume fraction] 33.6 % 37-47 [facility] Work Phone: Iron measurement (mass/mass) on 12-19-2021 Iron (Unsp spec) [Mass/Mass] 50 ug/dL 50-170 [facility] Work Phone: Laboratory - Chemistry and C hemistry - challengeon 12-19-2021 ALP [Catalytic activity/Vol] 90 U/L 45-117 [facility] Work Phone: ALT [Catalytic activity/Vol] 21 U/L 13-56 [facility] Work Phone: CO2 [Moles/Vol] 26.0 mmol/L 21.0-32.0 [facility] Work Phone: Globulin (S) [Mass/Vol] 4.1 g/dL 2.2-4.2 [facility] Work Phone: Urea nitrogen/Creatinine [Mass ratio] 22.0 mg/mg 10-20 [facility] Work Phone: Laboratory - Hematology and Cell countson 12-19-2021 Erythrocyte distribution width (RBC) [Entitic vol] 47.5 fL 35.1-43.9 [facility] Work Phone: Erythrocyte distribution width (RBC) [Ratio] 13.8 % 11.6-14.6 [facility] Work Phone: MCH (RBC) [Entitic mass] 29.1 pg 27.0-32.0 [facility] Work Phone: MCHC Auto (RBC) [Mass/Vol]on 12-19-2021 MCHC (RBC) [Mass/Vol] 31.0 g/dL 32-36 [facility] Work Phone: No Panel Informationon 12-19 Estimated GFR (MDRD) Amer 35 mL/min >60 [facility] Work Phone: Comment on above: GFR Calc Estimated GFR (MDRD) Non-Af Amer 29 mL/min >60 [facility] Work Phone: Comment on above: Non- GFR Calc Parathyroid Hormone (Intact) 59.6 pg/mL 18.4-80.1 [facility] Work Phone: Thyroid Stimulating Hormone (TSH) 1.48 uIU/mL 0.358-3.74 [facility] Work Phone: Vitamin D 25-Hydroxy 46.2 ng/mL [facility] Work Phone: Comment on above: Vitamin D 25(OH) Sta tus Range Deficiency <20 ng/mL (50nmol/L) Insufficiency 20 - 30 ng/mL (50 - 75 nmol/L) Sufficiency 30 - 100 ng/mL (75 - 250 nmol/L) Toxicity >100 ng/mL (>250 nmol/L) Platelets bldon 12-19-2021 Platelets (Bld) [#/Vol] 237 10*3/uL 150-450 [facility] Work Phone: Serum or plasma albumin lesly urement (mass/volume)on 12-19-2021 Albumin [Mass/Vol] 3.1 g/dL 3.2-5.0 [facility] Work Phone: Serum or plasma albumin/glob ulin mass ratioon 12-19-2021 Albumin/Globulin [Mass ratio] 0.8 {ratio} 0.9-2.4 [facility] Work Phone: Serum or plasma calcium lesly urement (mass/volume)on 12-19-2021 Calcium [Mass/Vol] 8.8 mg/dL 8.5-10.1 [facility] Work Phone: Serum or plasma cholesterol in HDL measurement (mass/volume)on 12-19-2021 Cholesterol in HDL [Mass/Vol] 59 mg/dL [facility] Work Phone: Comment on above: The drugs N-Acetylcy steine and Metamizole may falsely depress this assay. Reference Range HDL <40 mg/dL Low HDL Cholesterol HDL >or= 60 mg/dL High HDL Cholesterol Serum or plasma cholesterol in VLDL measurement (mass/volume)on 12-19-2021 Cholesterol in VLDL [Mass/Vol] 16 mg/dL 5-40 [facility] Work Phone: Serum or plasma creatinine m easurement (mass/volume)on 12-19-2021 Creatinine [Mass/Vol] 1.86 mg/dL 0.55-1.02 [facility] Work Phone: Comment on above: The validity of the calculated GFR & GFRAA in patients over 70 years has not been determined. Clinical correlation is essential. Serum or plasma ferritin allyn surement (mass/volume)on 12-19-2021 Ferritin [Mass/Vol] 38 ng/mL 8-252 [facility] Work Phone: Serum or plasma low density lipoprotein (LDL) cholesterol measurement (mass/volume)on 12-19-2021 Cholesterol in LDL [Mass/Vol] 44 mg/dL 0-130 [facility] Work Phone: Serum or plasma urea nitroge n measurement (mass/volume)on 12-19-2021 Urea nitrogen [Mass/Vol] 41 mg/dL 7-18 [facility] Work Phone: Thin prep Papanicolaou smear with manual screeningon 12-19-2021 Thin prep Papanicolaou smear with manual screening 15 U/L 15-37 [facility] Work Phone: Thin prep Papanicolaou smear with manual screening 6 5-15 [facility] Work Phone: Office Visit: Diabetes follo w upon 03-05-2017 Dietary management education, guidance, and counseling (procedure) yes Invalid Interpretation Code [facility] Work Phone: Documentation of current medications (procedure) Done Invalid Interpretation Code [facility] Work Phone: Fall risk assessment Fall risk assessment Invali d Interpretation Code [facility] Work Phone: Smoking cessation education (procedure) yes Invalid Interpretation Code [facility] Work Phone: Tobacco smoking status NHIS Former Invalid Interpretation Code [facility] Work Phone: Tobacco use [facility] Current every day smoker Invalid Interpretation Code [facility] Work Phone: Office Visit: Diabetic Evalu ationon 02-18-2017 Adolescent depression screening assessment Adolescent depression screening assessment Invalid Interpretation Code [facility] Work Phone: Fall risk assessment No Invalid Interpretation Code [facility] Work Phone: Chart Maintenanceon 01-08-20 17 HbA1c 10.0 % Invalid Interpretation Code [facility] Work Phone: Office Visit: Diabetic Evalu ationon 11-04-2011 General categories [interpretation] of Cervical or vaginal smear or scraping by Cyto stain Hysteectomy Invalid Interpretation Code [facility] Work Phone: Vital Signs Date Time Vital Sign Value Performing Clinician Facility 06-01-2025 16:30-0400 Body temperature 97.4 [degF] Dr. Bird Lujan MD Work Phone: [facility] 06-01-2025 16:30-0400 Diastolic blood pressure 34 mm[Hg] Dr. Bird Lujan MD Work Phone: [facility] 06-01-2025 16:30-0400 Heart rate 64 /min Dr. Bird Lujan MD Work Phone: [facility] 06-01-2025 16:30-0400 Inhaled oxygen flow rate 3 L/min Dr. Bird Lujan MD Work Phone: 8(605)025-828220 [place] [address] 06-01-2025 16:30-0400 Respiratory rate 18 /min Dr. Bird Lujan MD Work Phone: 4(698)833-306220 [place] [address] 06-01-2025 16:30-0400 SaO2% (BldA) [Mass fraction] 100 % Dr. Bird Lujan MD Work Phone: 0(619)269-570920 [place] [address] 06-01-2025 16:30-0400 Systolic blood pressure 111 mm[Hg] Dr. Bird Lujan MD Work Phone: 8(863)647-157713 [place] [address] 06-01-2025 15:43-0400 Body mass index (BMI) [Ratio] 16.3 kg/m2 Dr. Bird Lujan MD Work Phone: 3(713)859-692213 [place] [address] 06-01-2025 15:43-0400 Body weight [address] Bird Lujan MD Work Phone: 1(521)104-191213 [place] [address] 05-30-2025 11:30-0400 Body height 167.[address] Brid Lujan MD Work Phone: 9(383)423-351813 [place] [address] 05-28-2025 00:40-0400 Heart rate 79 /min Dr. Bird Lujan MD Work Phone: 6(208)441-513613 [place] [address] 05-28-2025 00:40-0400 Respiratory rate 20 /min Dr. Bird Lujan MD Work Phone: 7(585)013-040413 [place] [address] 05-28-2025 00:31-0400 Body temperature 98.5 [degF] Dr. Bird Lujan MD Work Phone: 2(536)393-922013 [place] [address] 05-28-2025 00:31-0400 Diastolic blood pressure 63 mm[Hg] Dr. Bird Lujan MD Work Phone: 9(954)879-291813 [place] [address] 05-28-2025 00:31-0400 SaO2% (BldA) [Mass fraction] 97 % Dr. Bird Lujan MD Work Phone: 4(944)503-240213 [place] [address] 05-28-2025 00:31-0400 Systolic blood pressure 165 mm[Hg] Dr. Bird Lujan MD Work Phone: 3(450)101-855113 [place] [address] 05-27-2025 23:00-0400 Inhaled oxygen flow rate 3 L/min Dr. Bird Lujan MD Work Phone: 0(748)244-323513 [place] [address] 05-27-2025 19:07-0400 Body height 167.[address] Bird Lujan MD Work Phone: 6(928)302-989213 [place] [address] 05-27-2025 19:07-0400 Body mass index (BMI) [Ratio] 16.8 kg/m2 Dr. Bird Lujan MD Work Phone: 5(518)913-481713 [place] [address] 05-27-2025 19:07-0400 Body weight 47.[address] Bird Ljuan MD Work Phone: 5(076)499-982713 [place] [address] 05-20-2025 22:40-0400 Body temperature 97.8 [degF] Dr. Bird Lujan MD Work Phone: 2(295)740-733813 [place] [address] 05-20-2025 22:40-0400 Diastolic blood pressure 65 mm[Hg] Dr. Bird Lujan MD Work Phone: 0(879)403-079113 [place] [address] 05-20-2025 22:40-0400 Heart rate 52 /min Dr. Bird Lujan MD Work Phone: 5(264)759-963113 [place] [address] 05-20-2025 22:40-0400 Respiratory rate 16 /min Dr. Bird Lujan MD Work Phone: 3(112)396-704413 [place] [address] 05-20-2025 22:40-0400 SaO2% (BldA) [Mass fraction] 100 % Dr. Bird Lujan MD Work Phone: 6(888)513-817913 [place] [address] 05-20-2025 22:40-0400 Systolic blood pressure 194 mm[Hg] Dr. Bird Lujan MD Work Phone: 1(603)403-175213 [place] [address] 05-20-2025 22:19-0400 Body mass index (BMI) [Ratio] 17.9 kg/m2 Dr. Bird Lujan MD Work Phone: 6(981)361-845220 [place] [address] 05-20-2025 22:19-0400 Body weight 50.[address] Bird Lujan MD Work Phone: 5(885)767-631713 [place] [address] 05-20-2025 20:21-0400 Body height 167.[address] Bird Lujan MD Work Phone: 8(791)231-387313 [place] [address] 05-20-2025 20:21-0400 Inhaled oxygen flow rate 3 L/min Dr. Bird Lujan MD Work Phone: 7(754)747-578713 [place] [address] 05-18-2025 07:26-0400 Body mass index (BMI) [Ratio] 16 kg/m2 Dr. Bird Lujan MD Work Phone: 9(650)639-589713 [place] [address] 05-18-2025 07:26-0400 Body temperature 97.2 [degF] Dr. Bird Lujan MD Work Phone: 4(140)723-236513 [place] [address] 05-18-2025 07:26-0400 Body weight 44.[address] Bird Lujan MD Work Phone: 7(839)192-402513 [place] [address] 05-18-2025 07:26-0400 Diastolic blood pressure 59 mm[Hg] Dr. Bird Lujan MD Work Phone: 9(341)189-828913 [place] [address] 05-18-2025 07:26-0400 Heart rate 56 /min Dr. Bird Lujan MD Work Phone: 3(435)545-610813 [place] [address] 05-18-2025 07:26-0400 Inhaled oxygen flow rate 3 L/min Dr. Bird Lujan MD Work Phone: 3(758)381-845613 [place] [address] 05-18-2025 07:26-0400 Respiratory rate 16 /min Dr. Bird Lujan MD Work Phone: 7(362)267-977713 [place] [address] 05-18-2025 07:26-0400 SaO2% (BldA) [Mass fraction] 95 % Dr. Bird Lujan MD Work Phone: 7(998)875-242113 [place] [address] 05-18-2025 07:26-0400 Systolic blood pressure 142 mm[Hg] Dr. Bird Lujan MD Work Phone: 2(364)149-182613 [place] [address] 05-08-2025 12:50-0400 Body temperature 98.6 [degF] Dr. Bird Lujan MD Work Phone: 4(305)889-452113 [place] [address] 05-08-2025 12:50-0400 Diastolic blood pressure 65 mm[Hg] Dr. Bird Lujan MD Work Phone: 3(048)775-852820 [place] [address] 05-08-2025 12:50-0400 Heart rate 61 /min Dr. Bird Lujan MD Work Phone: 4(862)890-175413 [place] [address] 05-08-2025 12:50-0400 Respiratory rate 16 /min Dr. Bird Lujan MD Work Phone: 6(767)673-239813 [place] [address] 05-08-2025 12:50-0400 SaO2% (BldA) [Mass fraction] 100 % Dr. Bird Lujan MD Work Phone: 6(709)676-955013 [place] [address] 05-08-2025 12:50-0400 Systolic blood pressure 171 mm[Hg] Dr. Bird Lujan MD Work Phone: 8(820)702-687213 [place] [address] 05-08-2025 09:13-0400 Inhaled oxygen flow rate 2 L/min Dr. Bird Lujan MD Work Phone: 9(193)369-199613 [place] [address] 05-08-2025 08:01-0400 Body height 167.[address] Bird Lujan MD Work Phone: 4(070)100-318613 [place] [address] 05-08-2025 08:01-0400 Body mass index (BMI) [Ratio] 16.3 kg/m2 Dr. Bird Lujan MD Work Phone: 1(783)662-562913 [place] [address] 05-08-2025 08:01-0400 Body weight [address] Bird Lujan MD Work Phone: 2(206)845-482413 [place] [address] 04-09-2025 13:59-0400 Body temperature 97.8 [degF] Dr. Bird Lujan MD Work Phone: [facility] 04-09-2025 13:59-0400 Diastolic blood pressure 78 mm[Hg] Dr. Bird Lujan MD Work Phone: [facility] 04-09-2025 13:59-0400 Heart rate 50 /min Dr. Bird Lujan MD Work Phone: [facility] 04-09-2025 13:59-0400 Respiratory rate 16 /min Dr. Bird Lujan MD Work Phone: [facility] 04-09-2025 13:59-0400 SaO2% (BldA) [Mass fraction] 100 % Dr. Bird Lujan MD Work Phone: [facility] 04-09-2025 13:59-0400 Systolic blood pressure 163 mm[Hg] Dr. Bird Lujan MD Work Phone: [facility] 04-09-2025 12:22-0400 Body height 167.[address] Bird Lujan MD Work Phone: [facility] 04-09-2025 12:22-0400 Inhaled oxygen flow rate 3 L/min Dr. Bird Lujan MD Work Phone: [facility] 03-22-2025 13:04-0400 Body height 167.[address] Christy Huerta DO Work Phone: [facility] 03-22-2025 13:04-0400 Body temperature 98.2 [degF] Dr. Christy Huerta DO Work Phone: [facility] 03-22-2025 13:04-0400 Diastolic blood pressure 66 mm[Hg] Dr. Christy Huerta DO Work Phone: [facility] 03-22-2025 13:04-0400 Heart rate 55 /min Dr. Christy Huerta DO Work Phone: [facility] 03-22-2025 13:04-0400 Respiratory rate 16 /min Dr. Christy Huerta DO Work Phone: [facility] 03-22-2025 13:04-0400 SaO2% (BldA) [Mass fraction] 100 % Dr. Christy Huerta DO Work Phone: [facility] 03-22-2025 13:04-0400 Systolic blood pressure 177 mm[Hg] Dr. Christy Huerta DO Work Phone: [facility] 01-27-2025 08:42-0400 Body mass index (BMI) [Ratio] 17.2 kg/m2 Dr. Christy Huerta DO Work Phone: [facility] 01-27-2025 08:42-0400 Body weight 48.[address] Christy Huerta DO Work Phone: [facility] 01-27-2025 08:42-0400 Diastolic blood pressure 72 mm[Hg] Dr. Christy Huerta DO Work Phone: [facility] 01-27-2025 08:42-0400 Heart rate 65 /min Dr. Christy Huerta DO Work Phone: [facility] 01-27-2025 08:42-0400 Inhaled oxygen flow rate 3 L/min Dr. Christy Huerta DO Work Phone: [facility] 01-27-2025 08:42-0400 SaO2% (BldA) [Mass fraction] 99 % Dr. Christy Huerta DO Work Phone: [facility] 01-27-2025 08:42-0400 Systolic blood pressure 172 mm[Hg] Dr. Christy Huerta DO Work Phone: [facility] 01-11-2025 15:17-0400 Body temperature 97.8 [degF] Dr. Bird Lujan MD Work Phone: [facility] 01-11-2025 15:17-0400 Body weight 50.[address] Bird Lujan MD Work Phone: [facility] 01-11-2025 15:17-0400 Diastolic blood pressure 52 mm[Hg] Dr. Bird Lujan MD Work Phone: [facility] 01-11-2025 15:17-0400 Heart rate 60 /min Dr. Bird Lujan MD Work Phone: [facility] 01-11-2025 15:17-0400 Inhaled oxygen flow rate 3 L/min Dr. Bird Lujan MD Work Phone: 4(983)813-977120 [place] [address] 01-11-2025 15:17-0400 Respiratory rate 16 /min Dr. Bird Lujan MD Work Phone: 7(087)429-692020 [place] [address] 01-11-2025 15:17-0400 SaO2% (BldA) [Mass fraction] 100 % Dr. Bird Lujan MD Work Phone: 8(137)282-175220 [place] [address] 01-11-2025 15:17-0400 Systolic blood pressure 125 mm[Hg] Dr. Bird Lujan MD Work Phone: 3(431)737-153113 [place] [address] 01-10-2025 09:10-0400 Body height 167.[address] Bird Lujan MD Work Phone: 5(090)162-189213 [place] [address] 01-06-2025 09:46-0500 Inhaled oxygen flow rate 2 L/min Dr. Bird Lujan MD Work Phone: [facility] 01-06-2025 08:32-0500 Heart rate 65 /min Dr. Bird Lujan MD Work Phone: 9(568)332-085395 [address] 01-06-2025 08:27-0500 Body temperature 97.6 [degF] Dr. Bird Lujan MD Work Phone: 8(136)858-376995 [address] 01-06-2025 08:27-0500 Diastolic blood pressure 54 mm[Hg] Dr. Bird Lujan MD Work Phone: [facility] 01-06-2025 08:27-0500 Respiratory rate 18 /min Dr. Bird Lujan MD Work Phone: 3(441)201-105120 [place] [address] 01-06-2025 08:27-0500 SaO2% (BldA) [Mass fraction] 99 % Dr. Bird Lujan MD Work Phone: [facility] 01-06-2025 08:27-0500 Systolic blood pressure 143 mm[Hg] Dr. Bird Lujan MD Work Phone: [facility] 01-05-2025 16:00-0500 Body mass index (BMI) [Ratio] 16.5 kg/m2 Dr. Bird Lujan MD Work Phone: 4(669)320-475020 [place] [address] 01-05-2025 16:00-0500 Body weight 46.[address] Bird Lujan MD Work Phone: 0(041)691-149820 [place] [address] 01-05-2025 14:33-0500 Inhaled oxygen concentration 30 % Dr. Bird Lujan MD Work Phone: 7(030)780-787995 [address] 12-28-2024 19:34-0500 Body temperature 97.7 [degF] Dr. Bird Lujan MD Work Phone: 0(318)994-821020 [place] [address] 12-28-2024 19:34-0500 Diastolic blood pressure 54 mm[Hg] Dr. Bird Lujan MD Work Phone: 4(171)539-317120 [place] [address] 12-28-2024 19:34-0500 Heart rate 61 /min Dr. Bird Lujan MD Work Phone: 2(769)758-740420 [place] [address] 12-28-2024 19:34-0500 Respiratory rate 16 /min Dr. Bird Lujan MD Work Phone: [facility] 12-28-2024 19:34-0500 SaO2% (BldA) [Mass fraction] 100 % Dr. Bird Lujan MD Work Phone: [facility] 12-28-2024 19:34-0500 Systolic blood pressure 118 mm[Hg] Dr. Bird Lujan MD Work Phone: [facility] 12-28-2024 13:56-0500 Inhaled oxygen flow rate 6 L/min Dr. Bird Lujan MD Work Phone: [facility] 12-28-2024 10:12-0500 Body mass index (BMI) [Ratio] 17.8 kg/m2 Dr. Bird Lujan MD Work Phone: [facility] 12-28-2024 10:12-0500 Body weight [address] Bird Lujan MD Work Phone: [facility] 12-16-2024 13:53-0500 Body mass index (BMI) [Ratio] 17.4 kg/m2 Dr. Bird Lujan MD Work Phone: [facility] 12-16-2024 13:53-0500 Body weight 48.[address] Bird Lujan MD Work Phone: [facility] 12-16-2024 13:53-0500 Diastolic blood pressure 71 mm[Hg] Dr. Bird Lujan MD Work Phone: [facility] 12-16-2024 13:53-0500 Heart rate 61 /min Dr. Bird Lujan MD Work Phone: [facility] 12-16-2024 13:53-0500 Inhaled oxygen flow rate 3 L/min Dr. Bird Lujan MD Work Phone: [facility] 12-16-2024 13:53-0500 Respiratory rate 18 /min Dr. Bird Lujan MD Work Phone: [facility] 12-16-2024 13:53-0500 SaO2% (BldA) [Mass fraction] 100 % Dr. Bird Lujan MD Work Phone: [facility] 12-16-2024 13:53-0500 Systolic blood pressure 164 mm[Hg] Dr. Bird Lujan MD Work Phone: [facility] 12-02-2024 14:48-0500 Body temperature 98.4 [degF] Dr. Bird Lujan MD Work Phone: 5(761)174-986420 [place] [address] 12-02-2024 14:48-0500 Body weight 49.[address] Bird Lujan MD Work Phone: [facility] 12-02-2024 14:48-0500 Diastolic blood pressure 65 mm[Hg] Dr. Bird Lujan MD Work Phone: [facility] 12-02-2024 14:48-0500 Heart rate 65 /min Dr. Bird Lujan MD Work Phone: 9(292)849-199720 [place] [address] 12-02-2024 14:48-0500 Inhaled oxygen flow rate 3 L/min Dr. Bird Lujan MD Work Phone: [facility] 12-02-2024 14:48-0500 Respiratory rate 16 /min Dr. Bird Lujan MD Work Phone: [facility] 12-02-2024 14:48-0500 SaO2% (BldA) [Mass fraction] 99 % Dr. Bird Lujan MD Work Phone: [facility] 12-02-2024 14:48-0500 Systolic blood pressure 161 mm[Hg] Dr. Bird Lujan MD Work Phone: [facility] 11-20-2024 23:26-0500 Body temperature 98.3 [degF] Dr. Bird Lujan MD Work Phone: [facility] 11-20-2024 23:26-0500 Diastolic blood pressure 49 mm[Hg] Dr. Bird Lujan MD Work Phone: [facility] 11-20-2024 23:26-0500 Heart rate 73 /min Dr. Bird Lujan MD Work Phone: [facility] 11-20-2024 23:26-0500 Respiratory rate 19 /min Dr. Bird Lujan MD Work Phone: [facility] 11-20-2024 23:26-0500 SaO2% (BldA) [Mass fraction] 100 % Dr. Bird Lujan MD Work Phone: [facility] 11-20-2024 23:26-0500 Systolic blood pressure 119 mm[Hg] Dr. Bird Lujan MD Work Phone: [facility] 11-20-2024 18:44-0500 Body mass index (BMI) [Ratio] 17.9 kg/m2 Dr. Bird Lujan MD Work Phone: 6(653)843-004620 [place] [address] 11-20-2024 18:44-0500 Body weight 50.[address] Bird Lujan MD Work Phone: [facility] 11-20-2024 18:44-0500 Inhaled oxygen flow rate 3 L/min Dr. Bird Lujan MD Work Phone: 0(637)505-266020 [place] [address] 11-04-2024 16:07-0500 Body mass index (BMI) [Ratio] 18.1 kg/m2 Dr. Bird Lujan MD Work Phone: 1(422)496-448220 [place] [address] 11-04-2024 16:07-0500 Body temperature 97.2 [degF] Dr. Bird Lujan MD Work Phone: 5(652)721-321820 [place] [address] 11-04-2024 16:07-0500 Body weight 50.[address] Bird Lujan MD Work Phone: 7(480)304-618520 [place] [address] 11-04-2024 16:07-0500 Diastolic blood pressure 84 mm[Hg] Dr. Bird Lujan MD Work Phone: 0(184)049-176920 [place] [address] 11-04-2024 16:07-0500 Heart rate 72 /min Dr. Bird Lujan MD Work Phone: [facility] 11-04-2024 16:07-0500 Respiratory rate 15 /min Dr. Bird Lujan MD Work Phone: 1(569)166-927320 [place] [address] 11-04-2024 16:07-0500 SaO2% (BldA) [Mass fraction] 100 % Dr. Bird Lujan MD Work Phone: 2(083)257-327720 [place] [address] 11-04-2024 16:07-0500 Systolic blood pressure 194 mm[Hg] Dr. Bird Lujan MD Work Phone: 7(014)365-964620 [place] [address] 11-04-2024 15:51-0500 Diastolic blood pressure 82 mm[Hg] Dr. Bird Lujan MD Work Phone: 9(790)207-814920 [place] [address] 11-04-2024 15:51-0500 Systolic blood pressure 218 mm[Hg] Dr. Bird Lujan MD Work Phone: 7(911)756-376695 [address] 11-04-2024 08:00-0500 Body mass index (BMI) [Ratio] 18.1 kg/m2 Dr. Bird Lujan MD Work Phone: 0(480)914-552413 [place] [address] 11-04-2024 08:00-0500 Body temperature 97.4 [degF] Dr. Bird Lujan MD Work Phone: 1(021)018-686313 [place] [address] 11-04-2024 08:00-0500 Body weight 50.[address] Bird Lujan MD Work Phone: 4(313)645-653720 [place] [address] 11-04-2024 08:00-0500 Heart rate 75 /min Dr. Bird Lujan MD Work Phone: 5(853)701-908413 [place] [address] 11-04-2024 08:00-0500 Inhaled oxygen flow rate 3 L/min Dr. Bird Lujan MD Work Phone: 2(435)102-224913 [place] [address] 11-04-2024 08:00-0500 Respiratory rate 20 /min Dr. Bird Lujan MD Work Phone: 3(606)971-909820 [place] [address] 11-04-2024 08:00-0500 SaO2% (BldA) [Mass fraction] 99 % Dr. Bird Lujan MD Work Phone: 2(296)777-747795 [address] 10-07-2024 13:43-0500 Body mass index (BMI) [Ratio] 16.8 kg/m2 Dr. Bird Lujan MD Work Phone: 6(375)557-349320 [place] [address] 10-07-2024 13:43-0500 Body weight 47.[address] Bird Lujan MD Work Phone: [facility] 10-07-2024 13:43-0500 Diastolic blood pressure 73 mm[Hg] Dr. Bird Lujan MD Work Phone: [facility] 10-07-2024 13:43-0500 Heart rate 76 /min Dr. Bird Lujan MD Work Phone: [facility] 10-07-2024 13:43-0500 Inhaled oxygen flow rate 3 L/min Dr. Bird Lujan MD Work Phone: [facility] 10-07-2024 13:43-0500 SaO2% (BldA) [Mass fraction] 100 % Dr. Bird Lujan MD Work Phone: [facility] 10-07-2024 13:43-0500 Systolic blood pressure 172 mm[Hg] Dr. Bird Lujan MD Work Phone: [facility] 08-24-2024 15:33-0400 Heart rate 83 /min Lucina HoangFancredMike DO Work Phone: [facility] 08-24-2024 15:33-0400 Respiratory rate 12 /min Lucina Syntilla MedicalzekeFancredMike DO Work Phone: [facility] 08-24-2024 15:33-0400 SaO2% (BldA) [Mass fraction] 99 % Lucina Syntilla MedicalzekeAttensamaximilian DO Work Phone: [facility] 08-24-2024 07:34-0400 Body temperature 97.9 [degF] Lucina Syntilla Medicalzeke-Mike DO Work Phone: [facility] 08-24-2024 07:34-0400 Diastolic blood pressure 58 mm[Hg] Lucina Float: [place]-Mike DO Work Phone: [facility] 08-24-2024 07:34-0400 Systolic blood pressure 141 mm[Hg] Lucina Syntilla MedicalzekeAttensamaximilian DO Work Phone: [facility] 08-24-2024 06:00-0400 Body mass index (BMI) [Ratio] 19.43 kg/m2 Lucina Galvan DO Work Phone: [facility] 08-24-2024 06:00-0400 Body weight 54.6 kg Lucina Galvan DO Work Phone: [facility] 08-22-2024 23:29-0400 Body height 167.6 cm Lucina Galvan DO Work Phone: [facility] 08-21-2024 15:09-0400 SaO2% (BldA) [Mass fraction] 96.1 % Lucina Galvan DO Work Phone: [facility] 08-21-2024 09:09-0400 SaO2% (BldA) [Mass fraction] 96.6 % Lucina Galvan DO Work Phone: [facility] 08-20-2024 21:28-0400 SaO2% (BldA) [Mass fraction] 98.1 % Lucina Galvan DO Work Phone: [facility] 08-20-2024 16:12-0400 SaO2% (BldA) [Mass fraction] 96.9 % Lucina Galvan DO Work Phone: [facility] 08-20-2024 13:02-0400 SaO2% (BldA) [Mass fraction] 68.2 % Lucina Galvan DO Work Phone: [facility] 08-20-2024 10:31-0400 SaO2% (BldA) [Mass fraction] 92.1 % Lucina Galvan DO Work Phone: [facility] 08-13-2024 07:08-0400 SaO2% (BldA) [Mass fraction] 95.8 % Lucina Galvan DO Work Phone: [facility] 08-10-2024 12:21-0400 Diastolic blood pressure 56 mm[Hg] Colin Peoples MD Work Phone: [facility] 08-10-2024 12:21-0400 Heart rate 81 /min Colin Peoples MD Work Phone: [facility] 08-10-2024 12:21-0400 Systolic blood pressure 133 mm[Hg] Colin Peoples MD Work Phone: [facility] 08-10-2024 12:17-0400 Body temperature 97 [degF] Colin Peoples MD Work Phone: [facility] 08-10-2024 12:17-0400 Respiratory rate 16 /min Colin Peoples MD Work Phone: [facility] 08-10-2024 12:17-0400 SaO2% (BldA) [Mass fraction] 100 % Colin Peoples MD Work Phone: [facility] 08-07-2024 04:00-0400 Body mass index (BMI) [Ratio] 20.43 kg/m2 Colin Peoples MD Work Phone: [facility] 08-07-2024 04:00-0400 Body weight 57.4 kg Colin Peoples MD Work Phone: [facility] 08-03-2024 13:55-0400 Body height 167.6 cm Colin Peoples MD Work Phone: [facility] 07-31-2024 06:18-0400 SaO2% (BldA) [Mass fraction] 98.0 % Colin Peoples MD Work Phone: [facility] 02-05-2024 07:48-0400 Body height 167.[address] Sin Lujan Work Phone: [facility] 02-05-2024 07:48-0400 Body mass index (BMI) [Ratio] 15.1 kg/m2 Dr. Sin Lujan Work Phone: [facility] 02-05-2024 07:48-0400 Body temperature 94.6 [degF] Dr. Sin Lujan Work Phone: [facility] 02-05-2024 07:48-0400 Body weight 42.[address] Sin Lujan Work Phone: [facility] 02-05-2024 07:48-0400 Diastolic blood pressure 66 mm[Hg] Dr. Sin Lujan Work Phone: [facility] 02-05-2024 07:48-0400 Heart rate 61 /min Dr. Sin Lujan Work Phone: [facility] 02-05-2024 07:48-0400 Inhaled oxygen flow rate 3 L/min Dr. Sin Lujan Work Phone: [facility] 02-05-2024 07:48-0400 Respiratory rate 18 /min Dr. Sin Lujan Work Phone: [facility] 02-05-2024 07:48-0400 SaO2% (BldA) [Mass fraction] 99 % Dr. Sin Lujan Work Phone: [facility] 02-05-2024 07:48-0400 Systolic blood pressure 107 mm[Hg] Dr. Sin Lujan Work Phone: [facility] 12-03-2023 10:07-0500 Body height 167.[address] Sin Lujan Work Phone: [facility] 12-03-2023 10:07-0500 Body mass index (BMI) [Ratio] 16.2 kg/m2 Dr. Sin Lujan Work Phone: [facility] 12-03-2023 10:07-0500 Body temperature 97.8 [degF] Dr. Sin Lujan Work Phone: [facility] 12-03-2023 10:07-0500 Body weight 45.[address] Sin Lujan Work Phone: [facility] 12-03-2023 10:07-0500 Diastolic blood pressure 75 mm[Hg] Dr. Sin Lujan Work Phone: [facility] 12-03-2023 10:07-0500 Heart rate 52 /min Dr. Sin Lujan Work Phone: [facility] 12-03-2023 10:07-0500 Respiratory rate 16 /min Dr. Sin Lujan Work Phone: [facility] 12-03-2023 10:07-0500 SaO2% (BldA) [Mass fraction] 92 % Dr. Sin Lujan Work Phone: [facility] 12-03-2023 10:07-0500 Systolic blood pressure 148 mm[Hg] Dr. Sin Lujan Work Phone: [facility] 11-18-2023 10:57-0500 Body height 167.[address] Sin Lujan Work Phone: [facility] 11-18-2023 10:57-0500 Body mass index (BMI) [Ratio] 16 kg/m2 Dr. Sin Lujan Work Phone: [facility] 11-18-2023 10:57-0500 Body weight 44.[address] Sin Lujan Work Phone: [facility] 11-18-2023 10:57-0500 Diastolic blood pressure 72 mm[Hg] Dr. Sin Lujan Work Phone: [facility] 11-18-2023 10:57-0500 Heart rate 59 /min Dr. Sin Lujan Work Phone: [facility] 11-18-2023 10:57-0500 Inhaled oxygen flow rate 3 L/min Dr. Sin Lujan Work Phone: [facility] 11-18-2023 10:57-0500 Respiratory rate 18 /min Dr. Sin Lujan Work Phone: [facility] 11-18-2023 10:57-0500 SaO2% (BldA) [Mass fraction] 99 % Dr. Sin Lujan Work Phone: [facility] 11-18-2023 10:57-0500 Systolic blood pressure 148 mm[Hg] Dr. Sin Lujan Work Phone: [facility] 10-29-2023 08:59-0500 Body height 167.[address] Sin Lujan Work Phone: [facility] 10-29-2023 08:59-0500 Body mass index (BMI) [Ratio] 15.8 kg/m2 Dr. Sin Lujan Work Phone: [facility] 10-29-2023 08:59-0500 Body temperature 97.4 [degF] Dr. Sin Lujan Work Phone: [facility] 10-29-2023 08:59-0500 Body weight 44.[address] Sin Lujan Work Phone: [facility] 10-29-2023 08:59-0500 Diastolic blood pressure 63 mm[Hg] Dr. Sin Lujan Work Phone: [facility] 10-29-2023 08:59-0500 Heart rate 67 /min Dr. Sin Lujan Work Phone: [facility] 10-29-2023 08:59-0500 Inhaled oxygen flow rate 3 L/min Dr. Sin Lujan Work Phone: [facility] 10-29-2023 08:59-0500 Respiratory rate 22 /min Dr. Sin Lujan Work Phone: [facility] 10-29-2023 08:59-0500 SaO2% (BldA) [Mass fraction] 99 % Dr. Sin Lujan Work Phone: [facility] 10-29-2023 08:59-0500 Systolic blood pressure 121 mm[Hg] Dr. Sin Lujan Work Phone: [facility] 07-14-2023 10:44-0400 Body height 167.64 cm [employer] Jeanna Davis [employer] Work Phone: [facility] 07-14-2023 10:44-0400 Body mass index (BMI) [Ratio] 15.3 kg/m2 [employer] Jeanna Davis [employer] Work Phone: [facility] 07-14-2023 10:44-0400 Body temperature 97.8 [degF] [employer] Jeanna Daivs [employer] Work Phone: [facility] 07-14-2023 10:44-0400 Body weight 43.26 kg [employer] Jeanna Davis [employer] Work Phone: [facility] 07-14-2023 10:44-0400 Diastolic blood pressure 72 mm[Hg] [employer] Jeanna Davis [employer] Work Phone: [facility] 07-14-2023 10:44-0400 Heart rate 70 /min [employer] Jeanna Davis [employer] Work Phone: [facility] 07-14-2023 10:44-0400 Respiratory rate 16 /min [employer] Jeanna Davis [employer] Work Phone: [facility] 07-14-2023 10:44-0400 SaO2% (BldA) [Mass fraction] 95 % [employer] Jeanna Davis [employer] Work Phone: [facility] 07-14-2023 10:44-0400 Systolic blood pressure 144 mm[Hg] [employer] Jeanna Davis [employer] Work Phone: [facility] 06-25-2023 05:47-0400 Body mass index (BMI) [Ratio] 15.7 kg/m2 [employer] Jeanna Davis [employer] Work Phone: [facility] 06-25-2023 05:47-0400 Body temperature 96.8 [degF] [employer] Jeanna Davis [employer] Work Phone: [facility] 06-25-2023 05:47-0400 Body weight 44.45 kg [employer] Jeanna Davis [employer] Work Phone: [facility] 06-25-2023 05:47-0400 Diastolic blood pressure 75 mm[Hg] [employer] Jeanna Davis [employer] Work Phone: [facility] 06-25-2023 05:47-0400 Heart rate 62 /min [employer] Jeanna Davis [employer] Work Phone: [facility] 06-25-2023 05:47-0400 Respiratory rate 16 /min [employer] Jeanna Davis [employer] Work Phone: [facility] 06-25-2023 05:47-0400 SaO2% (BldA) [Mass fraction] 96 % [employer] Jeanna Davis [employer] Work Phone: [facility] 06-25-2023 05:47-0400 Systolic blood pressure 136 mm[Hg] [employer] Jeanna Davis [employer] Work Phone: [facility] 06-12-2023 08:36-0400 Body height 167.[address] Sin Lujan Work Phone: [facility] 06-12-2023 08:36-0400 Body weight 45.[address] Sin Lujan Work Phone: [facility] 06-12-2023 08:36-0400 Heart rate 59 /min Dr. Sin Lujan Work Phone: [facility] 06-12-2023 08:36-0400 Inhaled oxygen flow rate 2 L/min Dr. Sin Lujan Work Phone: [facility] 06-12-2023 08:36-0400 SaO2% (BldA) [Mass fraction] 89 % Dr. Sin Lujan Work Phone: [facility] 04-09-2023 14:31-0400 Body height 167.[address] Sin Lujan Work Phone: [facility] 04-09-2023 14:31-0400 Body mass index (BMI) [Ratio] 16 kg/m2 Dr. Sin Lujan Work Phone: [facility] 04-09-2023 14:31-0400 Body weight 44.[address] Sin Lujan Work Phone: [facility] 04-09-2023 14:31-0400 Diastolic blood pressure 65 mm[Hg] Dr. Sin Lujan Work Phone: [facility] 04-09-2023 14:31-0400 Heart rate 59 /min Dr. Sin Lujan Work Phone: [facility] 04-09-2023 14:31-0400 Respiratory rate 18 /min Dr. Sin Lujan Work Phone: [facility] 04-09-2023 14:31-0400 Systolic blood pressure 113 mm[Hg] Dr. Sin Lujan Work Phone: [facility] 02-17-2023 07:47-0400 Body height 167.[address] Sin Lujan Work Phone: [facility] 02-17-2023 07:47-0400 Body mass index (BMI) [Ratio] 16 kg/m2 Dr. Sin Lujan Work Phone: [facility] 02-17-2023 07:47-0400 Body temperature 97 [degF] Dr. Sin Lujan Work Phone: [facility] 02-17-2023 07:47-0400 Body weight 44.[address] Sin Lujan Work Phone: [facility] 02-17-2023 07:47-0400 Diastolic blood pressure 58 mm[Hg] Dr. Sin Lujan Work Phone: [facility] 02-17-2023 07:47-0400 Heart rate 69 /min Dr. Sin Lujan Work Phone: [facility] 02-17-2023 07:47-0400 Respiratory rate 18 /min Dr. Sin Lujan Work Phone: [facility] 02-17-2023 07:47-0400 SaO2% (BldA) [Mass fraction] 95 % Dr. Sin Lujan Work Phone: [facility] 02-17-2023 07:47-0400 Systolic blood pressure 98 mm[Hg] Dr. Sin Lujan Work Phone: [facility] 01-01-2023 13:19-0500 Body mass index (BMI) [Ratio] 16.2 kg/m2 Dr. Sin Lujan Work Phone: [facility] 01-01-2023 13:19-0500 Body temperature 96.9 [degF] Dr. Sin Lujan Work Phone: [facility] 01-01-2023 13:19-0500 Body weight 45.[address] Sin Lujan Work Phone: [facility] 01-01-2023 13:19-0500 Diastolic blood pressure 77 mm[Hg] Dr. Sin Lujan Work Phone: [facility] 01-01-2023 13:19-0500 Heart rate 67 /min Dr. Sin Lujan Work Phone: [facility] 01-01-2023 13:19-0500 Respiratory rate 18 /min Dr. Sin Lujan Work Phone: [facility] 01-01-2023 13:19-0500 SaO2% (BldA) [Mass fraction] 92 % Dr. Sin Lujan Work Phone: [facility] 01-01-2023 13:19-0500 Systolic blood pressure 143 mm[Hg] Dr. Sin Lujan Work Phone: [facility] 09-05-2022 07:40-0400 Body height 167.[address] Sin Lujan Work Phone: [facility] Work Phone: 09-05-2022 07:40-0400 Body mass index (BMI) [Ratio] 17.2 kg/m2 Dr. Sin Lujan Work Phone: [facility] Work Phone: 09-05-2022 07:40-0400 Body temperature 98 [degF] Dr. Sin Lujan Work Phone: [facility] Work Phone: 09-05-2022 07:40-0400 Body weight 48.[address] Sin Lujan Work Phone: [facility] Work Phone: 09-05-2022 07:40-0400 Diastolic blood pressure 73 mm[Hg] Dr. Sin Lujan Work Phone: [facility] Work Phone: 09-05-2022 07:40-0400 Heart rate 66 /min Dr. Sin Lujan Work Phone: [facility] Work Phone: 09-05-2022 07:40-0400 Respiratory rate 16 /min Dr. Sin Lujan Work Phone: [facility] Work Phone: 09-05-2022 07:40-0400 SaO2% (BldA) [Mass fraction] 99 % Dr. Sin Lujan Work Phone: [facility] Work Phone: 09-05-2022 07:40-0400 Systolic blood pressure 160 mm[Hg] Dr. Sin Lujan Work Phone: [facility] Work Phone: 07-31-2022 12:46-0400 Body height 167.[address] Sin Lujan Work Phone: [facility] Work Phone: 07-31-2022 12:46-0400 Body weight 45.[address] Sin Lujan Work Phone: [facility] Work Phone: 07-31-2022 12:46-0400 Heart rate 79 /min Dr. Sni Lujan Work Phone: [facility] Work Phone: 07-31-2022 12:46-0400 SaO2% (BldA) [Mass fraction] 97 % Dr. Sin Lujan Work Phone: [facility] Work Phone: 07-04-2022 10:35-0400 Body mass index (BMI) [Ratio] 16.5 kg/m2 Dr. Sin Lujan Work Phone: [facility] Work Phone: 07-04-2022 10:35-0400 Body temperature 95.2 [degF] Dr. Sin Lujan Work Phone: [facility] Work Phone: 07-04-2022 10:35-0400 Body weight 46.[address] Sin Lujan Work Phone: [facility] Work Phone: 07-04-2022 10:35-0400 Diastolic blood pressure 76 mm[Hg] Dr. Sin Lujan Work Phone: [facility] Work Phone: 07-04-2022 10:35-0400 Heart rate 68 /min Dr. Sin Lujan Work Phone: [facility] Work Phone: 07-04-2022 10:35-0400 Respiratory rate 18 /min Dr. Sin Lujan Work Phone: [facility] Work Phone: 07-04-2022 10:35-0400 SaO2% (BldA) [Mass fraction] 96 % Dr. Sin Lujan Work Phone: [facility] Work Phone: 07-04-2022 10:35-0400 Systolic blood pressure 130 mm[Hg] Dr. Sin Lujan Work Phone: [facility] Work Phone: 05-28-2022 12:54-0400 Body height 167.64 cm No PCP None UZ-Fpbihkjrrm-MM [facility] [place] [address] Work Phone: 05-28-2022 12:54-0400 Body mass index (BMI) [Ratio] 17.24 kg/m2 No PCP None MC-Tmqeicezat-DQX [place] [address] Work Phone: 05-28-2022 12:54-0400 Body surface area Derived from formula 1.53 m2 No PCP None ZB-Eidpxvaeua-ZEW [place] [address] Work Phone: 05-28-2022 12:54-0400 Body temperature 97.2 [degF] No PCP None PE-Vyiqupxzsw-T [facility] [place] [address] Work Phone: 05-28-2022 12:54-0400 Body weight 48.44 kg No PCP None LX-Wcpemvxrrf-CT [place] [address] Work Phone: 05-28-2022 12:54-0400 Diastolic blood pressure 55 mm[Hg] No PCP None DU-Vkaumjyueo-RGU [place] [address] Work Phone: 05-28-2022 12:54-0400 Heart rate 68 /min No PCP None WF-Fajafybigl-ZW [place] [address] Work Phone: 05-28-2022 12:54-0400 SaO2% (BldA) [Mass fraction] 98 % No PCP None BM-Mbvntlnmta-VID [place] [address] Work Phone: 05-28-2022 12:54-0400 Systolic blood pressure 111 mm[Hg] No PCP None XU-Gnmetvgnfy-AZS [place] [address] Work Phone: 05-28-2022 12:54-0400 0 1 No PCP None DT-Rylaidtjxd-FC [place] [address] Work Phone: Comment on above: [facility] 05-13-2022 08:14-0400 Body mass index (BMI) [Ratio] 16.9 kg/m2 Dr. Sin Lujan Work Phone: [facility] Work Phone: 05-13-2022 08:14-0400 Body temperature 97.4 [degF] Dr. Sin uLjan Work Phone: [facility] Work Phone: 05-13-2022 08:14-0400 Body weight 47.[address] Sin Lujan Work Phone: [facility] Work Phone: 05-13-2022 08:14-0400 Diastolic blood pressure 62 mm[Hg] Dr. Sin Lujan Work Phone: [facility] Work Phone: 05-13-2022 08:14-0400 Heart rate 67 /min Dr. Sin Lujan Work Phone: [facility] Work Phone: 05-13-2022 08:14-0400 Respiratory rate 16 /min Dr. Sin Lujan Work Phone: [facility] Work Phone: 05-13-2022 08:14-0400 SaO2% (BldA) [Mass fraction] 99 % Dr. Sin Lujan Work Phone: [facility] Work Phone: 05-13-2022 08:14-0400 Systolic blood pressure 126 mm[Hg] Dr. Sin Lujan Work Phone: [facility] Work Phone: 02-21-2022 13:07-0400 Body height 167.[address] Sin Lujan Work Phone: [facility] Work Phone: 02-21-2022 13:07-0400 Body mass index (BMI) [Ratio] 16.1 kg/m2 Dr. Sin Lujan Work Phone: [facility] Work Phone: 02-21-2022 13:07-0400 Body temperature 99.1 [degF] Dr. Sin Lujan Work Phone: [facility] Work Phone: 02-21-2022 13:07-0400 Body weight 45.[address] Sin Lujan Work Phone: [facility] Work Phone: 02-21-2022 13:07-0400 Diastolic blood pressure 75 mm[Hg] Dr. Sin Luajn Work Phone: [facility] Work Phone: 02-21-2022 13:07-0400 Heart rate 61 /min Dr. Sin Lujan Work Phone: [facility] Work Phone: 02-21-2022 13:07-0400 Respiratory rate 17 /min Dr. Sin Lujan Work Phone: [facility] Work Phone: 02-21-2022 13:07-0400 SaO2% (BldA) [Mass fraction] 95 % Dr. Sin Lujan Work Phone: [facility] Work Phone: 02-21-2022 13:07-0400 Systolic blood pressure 130 mm[Hg] Dr. Sin Lujan Work Phone: [facility] Work Phone: 02-21-2022 13:07-0400 Body height 167.[address] Sin Lujan Work Phone: [facility] Work Phone: 02-21-2022 13:07-0400 Body mass index (BMI) [Ratio] 16.1 kg/m2 Dr. Sin Lujan Work Phone: [facility] Work Phone: 02-21-2022 13:07-0400 Body temperature 99.1 [degF] Dr. Sin Lujan Work Phone: [facility] Work Phone: 02-21-2022 13:07-0400 Body weight 45.[address] Sin Lujan Work Phone: [facility] Work Phone: 02-21-2022 13:07-0400 Diastolic blood pressure 75 mm[Hg] Dr. Sin Lujan Work Phone: [facility] Work Phone: 02-21-2022 13:07-0400 Heart rate 61 /min Dr. Sin Lujan Work Phone: [facility] Work Phone: 02-21-2022 13:07-0400 Respiratory rate 17 /min Dr. Sin Lujan Work Phone: [facility] Work Phone: 02-21-2022 13:07-0400 SaO2% (BldA) [Mass fraction] 95 % Dr. Sin Lujan Work Phone: [facility] Work Phone: 02-21-2022 13:07-0400 Systolic blood pressure 130 mm[Hg] Dr. Sin Lujan Work Phone: [facility] Work Phone: 01-10-2022 08:05-0500 Body mass index (BMI) [Ratio] 17.3 kg/m2 Dr. Sin Lujan Work Phone: [facility] Work Phone: 01-10-2022 08:05-0500 Body temperature 97.3 [degF] Dr. Sin Lujan Work Phone: [facility] Work Phone: 01-10-2022 08:05-0500 Body weight 48.[address] Sin Lujan Work Phone: [facility] Work Phone: 01-10-2022 08:05-0500 Diastolic blood pressure 60 mm[Hg] Dr. Sin Lujan Work Phone: [facility] Work Phone: 01-10-2022 08:05-0500 Heart rate 77 /min Dr. Sin Lujan Work Phone: [facility] Work Phone: 01-10-2022 08:05-0500 Respiratory rate 18 /min Dr. Sin Lujan Work Phone: [facility] Work Phone: 01-10-2022 08:05-0500 SaO2% (BldA) [Mass fraction] 95 % Dr. Sin Lujan Work Phone: [facility] Work Phone: 01-10-2022 08:05-0500 Systolic blood pressure 140 mm[Hg] Dr. Sin Lujan Work Phone: [facility] Work Phone: 01-10-2022 07:05-0500 Body height 167.[address] Sin Lujan Work Phone: [facility] Work Phone: 01-10-2022 07:05-0500 Body mass index (BMI) [Ratio] 17.3 kg/m2 Dr. Sin Lujan Work Phone: [facility] Work Phone: 01-10-2022 07:05-0500 Body temperature 97.3 [degF] Dr. Sin Lujan Work Phone: [facility] Work Phone: 01-10-2022 07:05-0500 Body weight 48.[address] Sin Lujan Work Phone: [facility] Work Phone: 01-10-2022 07:05-0500 Diastolic blood pressure 60 mm[Hg] Dr. Sin Lujan Work Phone: [facility] Work Phone: 01-10-2022 07:05-0500 Heart rate 77 /min Dr. Sin Lujan Work Phone: [facility] Work Phone: 01-10-2022 07:05-0500 Respiratory rate 18 /min Dr. Sin Lujan Work Phone: [facility] Work Phone: 01-10-2022 07:05-0500 SaO2% (BldA) [Mass fraction] 95 % Dr. Sin Lujan Work Phone: [facility] Work Phone: 01-10-2022 07:05-0500 Systolic blood pressure 140 mm[Hg] Dr. Sin Lujan Work Phone: [facility] Work Phone: 03-05-2017 16:53-0400 BMI (Body Mass Index) 16.91 kg/m2 Ana Rosa Bustillo DEPARTMENTAL BUYER [facility] Work Phone: 03-05-2017 16:53-0400 BP Diastolic 68 mm[Hg] Ana Rosakosta Bustillo DEPARTMENTAL BU[employer]ER [facility] Work Phone: 03-05-2017 16:53-0400 BP Systolic 120 mm[Hg] Ana Rosakosta Bustillo LPN [facility] Work Phone: 03-05-2017 16:53-0400 Height 167.64 cm Ana Rosakosta Bustillo LPN [facility] Work Phone: 03-05-2017 16:53-0400 Pulse (Heart Rate) 92 /min Ana Rosa Bustillo [employer]PARTMENTAL BU[employer] [facility] Work Phone: 03-05-2017 16:53-0400 Pulse Oximetry 98 % Ana Rosa Bustillo LPN [facility] Work Phone: 03-05-2017 16:53-0400 Respiratory Rate 16 /min Ana Rosa Bustillo LPN [facility] Work Phone: 03-05-2017 16:53-0400 Weight 47.54 kg Ana Rosa Bustillo LPN [facility] Work Phone: 02-18-2017 14:22-0400 Body Temperature 97.9 [degF] Ana Rosa Bustillo LPN [facility] Work Phone: 02-18-2017 14:22-0400 BSA (Body Surface Area) 1.53 m2 Ana Rosa Bustillo LPN [facility] Work Phone: 02-18-2017 14:22-0400 Height 167.64 cm Ana Rosa Bustillo LPN [facility] Work Phone: 02-18-2017 14:22-0400 Weight 48.53 kg Ana Rosa [facility] Work Phone: Encounters Encounter Date Encounter Type Care Provider Facility Start: 06-01-2025 Dr. Stacy Huerta [facility] Work Phone: Start: 05-31-2025 Dr. Favian Sinclair MD -[facility] Start: 05-31-2025 ambulatory [facility] ty:[facility] Start: 05-31-2025 Dr. Stacy Huerta [facility] Inpatient Physicians Work Phone: Start: 05-30-2025 Dr. Favian Sinclair MD [facility] Start: 05-30-2025 Dr. Stacy Huerta [facility] Work Phone: Start: 05-29-2025 Dr. Khai Bullard [facility] Inpatient Physicians Work Phone: Start: 05-29-2025 Dr. Brielle Turner MD -[facility] Start: 05-28-2025 Dr. Brielle Turner MD -[facility] Start: 05-28-2025 ambulatory Christy Huerta Facility: [facility] Start: 05-28-2025 End: 06-01-2025 Evaluation and management of inpatient Dr. [place] Lujan MD Work Phone: -Progressive Care Unit Start: 05-28-2025 End: 06-01-2025 Dr. Favian Nicholas DO -[facility] Work Phone: Start: 05-20-2025 End: 05-20-2025 [facility]. [facility] Work [facility] Start: 05-20-2025 End: 05-20-2025 Emergency department patient visit Dr. [place] Lujan MD Work Phone: -Emergency Department Work Phone: Start: 05-18-2025 End: 05-18-2025 Patient encounter procedure 2ND PRESSMAN Irais Justice [facility] Pulmonary Medicine Work Phone: Start: 05-18-2025 End: 05-18-2025 2ND PRESSMAN Irais Justice [facility] Pulmona ry Medicine Work Phone: Start: 05-18-2025 End: 05-18-[address] [place] Lujan MD Work Phone: -[facility] Start: 05-08-2025 End: 05-08-2025 Dr. Justin Parisi DO -Emergency Department Work Phone: Start: 05-08-2025 End: 05-08-2025 Emergency department patient visit Dr. [place] Lujan MD Work Phone: -Emergency Department Work Phone: Start: 04-11-2025 End: 04-11-[address] [place] Lujan MD Work Phone: [facility] Work Phone: Start: 04-11-2025 End: 04-11-[address] Christy Huerta DO -Laboratory Specimen Work Phone: Start: 04-11-2025 End: 04-11-2025 Dr. Christy Huerta DO -Laboratory Specime n Work Phone: Start: 04-11-2025 End: 04-11-2025 ambulatory Christy Huerta Facility:[facility] Start: 04-09-2025 End: 04-09-2025 Dr. [place] Lujan MD Work Phone: -Emergency Department Work Phone: Start: 04-09-2025 End: 04-09-2025 Emergency department patient visit Dr. [place] Lujan MD Work Phone: [facility] Work Phone: Start: 04-09-2025 End: 04-09-[address] [place] Lujan MD Work Phone: [facility] Work Phone: Start: 04-09-2025 End: 04-09-[address] Christy Huerta DO -Laboratory Work Phone: Start: 04-09-2025 End: 04-09-2025 Dr. Christy Huerta DO -Laboratory Work Phone: Start: 04-09-2025 End: 04-09-2025 ambulatory Christy Huerta Facility:[facility] Start: 03-22-2025 End: 03-22-2025 Patient encounter procedure Kayleigh BHARDWAJ -[facility] Work Phone: Start: 03-22-2025 End: 03-22-2025 Kayleigh BHARDWAJ -[facility] Work Phone: Start: 03-22-2025 End: 03-22-[address] Christy Huerta DO Work Phone: [facility] Work Phone: Start: 03-10-2025 ambulatory [place] Lam lity:[facility] Start: 01-27-2025 End: 01-27-2025 Patient encounter procedure Brenda Merdano NP-C -[facility] Work Phone: Start: 01-27-2025 End: 01-27-2025 Brenda Medrano 2ND PRESSMAN-C -[facility] Work Phone: Start: 01-27-2025 End: 01-27-2025 ambulatory [place] Lujan Facility:[facility] Start: 01-13-2025 Encounter for other preprocedural examination Favian Sinclair [facility] Start: 01-11-2025 End: 01-11-2025 Patient encounter procedure Kayleigh BHARDWAJ -[facility] Work Phone: Start: 01-11-2025 End: 01-11-2025 Kayleigh BHARDWAJ -[facility] Work Phone: Start: 01-11-2025 End: 01-11-2025 ambulatory [place] Lujan Facility:[facility] Start: 01-11-2025 End: 01-11-[address] [place] Lujan MD Work Phone: [facility] Work Phone: Start: 01-11-2025 End: 01-11-2025 Patient encounter procedure Jeanna Davis 2ND PRESSMAN-C -Cat Scan [facility] Work Phone: Start: 01-11-2025 End: 01-11-2025 Jeanna Davis 2ND PRESSMAN-C -Cat Scan, [facility] Work Phone: Start: 01-11-2025 End: 01-11-2025 ambulatory [place] Lujan Facility:[facility] Start: 01-06-2025 ambulatory [place] Lujan Faci lity:[facility] Start: 01-06-2025 Dr. He Cat MD -[facility] Work Phone: Start: 01-05-2025 Dr. He Cat MD -[facility] Work Phone: Start: 01-05-2025 Dr. Terrnace Alva DO -[facility] -[facility] Start: 01-04-2025 Dr. He Cat MD -[facility] Work Phone: Start: 01-03-2025 End: 01-06-2025 Evaluation and management of inpatient Alex Hinojosa Facility:[facility] Start: 01-03-2025 ambulatory Alex Hinojosa Facility:[facility] Start: 01-03-2025 End: 01-06-2025 Dr. He Cat MD -Progressive Care U nit Work Phone: Start: 12-30-2024 End: 12-30-2024 Telephone encounter Kidney Txp Coordinators Work Phone: [facility] Comment on above: Referral - Kidney Tx p Start: 12-30-2024 [facility] Start: 12-29-2024 End: 12-29-2024 Telephone encounter Kidney Txp Coordinators Work Phone: [facility] Comment on above: Referral - Kidney Tx p Start: 12-28-2024 [facility] Start: 12-28-2024 Dr. Favian Sinclair MD -[facility] -S Start: 12-28-2024 End: 12-28-2024 Dr. Favian Sinclair MD -S[facility] Day Care Start: 12-28-2024 End: 12-28-2024 ambulatory [facility] Facility:[facility] Start: 12-24-2024 End: 12-24-2024 Telephone encounter Kidney Txp Coordinators Work Phone: [facility] Comment on above: Referral - Kidney Tx p Start: 12-17-2024 ambulatory Tee Aguirre Fa cility:[facility] Start: 12-17-2024 End: 12-17-2024 Dr. Tee Aguirre MD -[facility] Start: 12-16-2024 End: 12-16-2024 Mynor ARGUETA -[facility] Work Phone: Start: 12-16-2024 End: 12-17-2024 ambulatory [place] Lujan Facility:[facility] Start: 12-02-2024 End: 12-02-2024 Dr. Favian Sinclair MD -[facility] Surgery Work Phone: Start: 12-02-2024 End: 12-02-2024 ambulatory Christy Huerta Facility:[facility] Start: 11-20-2024 End: 11-20-2024 Dr. Justin Parisi DO -Emergency Department Work Phone: Start: 11-20-2024 End: 11-20-2024 Emergency department patient visit Justin Parisi Facility:[facility] Start: 11-04-2024 End: 11-04-2024 Emergency department patient visit Ed Physician Provider Facility:[facility] Start: 11-04-2024 End: 11-04-2024 ED PHYSICIAN PROVIDER -Emergency Departm ent Work Phone: Start: 11-04-2024 End: 11-04-2024 ambulatory [place] Lujan Facility:[facility] Start: 11-02-2024 ambulatory [place] Lujan Faci lity:[facility] Start: 11-02-2024 End: 11-02-2024 Dr. Favian Sinclair MD -[facility] Start: 11-02-2024 End: 11-02-2024 ambulatory Christy Huerta Facility:[facility] Start: 10-16-2024 End: 10-16-2024 Jeanna Davis 2ND PRESSMAN-C -Cat Luis, [facility] Work Phone: Start: 10-16-2024 End: 10-16-2024 ambulatory Jeanna Davis NP Facility:[facility] Start: 10-07-2024 End: 10-07-2024 Brenda Medrano 2ND PRESSMAN-C -[facility] Work Phone: Start: 10-07-2024 End: 10-07-2024 ambulatory Brenda Medrano Facility:[facility] Start: 08-31-2024 End: 08-31-2024 ambulatory Tami Alfredo APRN - BUILDING SERVICEMAN Work Phone: [facility] Start: 08-31-2024 End: 08-31-2024 Patient encounter procedure Tami Alfredo STADIUM MANAGER - BUILDING SERVICEMAN Work Phone: [facility] Comment on above: Chronic respiratory failure with hypoxia and hypercapnia (HCC) [J96.11, J96.12] (Primary Dx); Centrilobular emphysema (HCC) [J43.2]; Other dysphagia [R13.19]; Hx of bacterial pneumonia [Z87.01] Start: 08-27-2024 End: 08-27-2024 ambulatory Tami Alfredo STADIUM MANAGER - BUILDING SERVICEMAN Work Phone: [facility] Start: 08-27-2024 End: 08-27-2024 Patient encounter procedure Tami Alfredo STADIUM MANAGER - BUILDING SERVICEMAN Work Phone: [facility] Comment on above: Chronic respiratory failure with hypoxia and hypercapnia (HCC) [J96.11, J96.12] (Primary Dx); Centrilobular emphysema (HCC) [J43.2]; History of recent pneumonia [Z87.01]; Other dysphagia [R13.19] Start: 08-25-2024 End: 08-25-2024 ambulatory Tami Alfredo STADIUM MANAGER - BUILDING SERVICEMAN Work Phone: [facility] Start: 08-25-2024 End: 08-25-2024 Patient encounter procedure Tami Alfredo STADIUM MANAGER - BUILDING SERVICEMAN Work Phone: [facility]od[facility] Comment on above: Chronic respiratory failure with hypoxia and hypercapnia (HCC) [J96.11, J96.12] (Primary Dx); Centrilobular emphysema (HCC) [J43.2]; Bilateral pleural effusion [J90]; Hx of bacterial pneumonia [Z87.01]; Cigarette nicotine dependence without complication [F17.210] Start: 08-13-2024 End: 08-13-2024 ambulatory ELIZABETH TYLER [facility] Start: 08-12-2024 End: 08-24-2024 Evaluation and management of inpatient Lucina HoangMike Work Phone: [facility] 6W Start: 08-11-2024 End: 08-11-2024 ambulatory ELIESER SOLIS [facility] Start: 08-11-2024 End: 11-10-2024 Subsequent hospital visit by physician Elieser Solis MD Work Phone: [facility] Comment on above: SDH (subdural hemato ma) (HCC) SDH (subdural hemato ma) (HCC) (Primary Dx) Start: 08-10-2024 End: 08-10-2024 ambulatory MADELINEBALBIR SHEEHANAKE [facility] Start: 07-28-2024 End: 07-28-2024 ambulatory TORITO MAHAJAN [facility] Start: 07-27-2024 End: 07-29-2024 ambulatory TORITO [facility] Start: 07-26-2024 End: 08-10-2024 Evaluation and management of inpatient Colin Peoples MD Work Phone: [facility] Trauma Neuro Progressive Care Unit PCU 3W Start: 07-24-2024 End: 07-24-2024 ambulatory Lani Samaniego Facility:[facility] Start: 07-23-2024 ambulatory Lani Samaniego Facility :[facility] Start: 07-23-2024 End: 07-26-2024 Evaluation and management of inpatient Lani Samaniego Facility:[facility] Start: 07-13-2024 ambulatory Christy Huerta Facility: [facility] Start: 07-01-2024 End: 07-01-2024 ambulatory [place] Lujan Facility:[facility] Start: 03-02-2024 End: 03-02-[address] [place] Lujan Work Phone: [facility] Work Phone: Start: 03-02-2024 End: 03-02-[address] [place] Lujan Work Phone: [facility]-Cardiovascula r Services Work Phone: Start: 02-05-2024 End: 02-05-[address] Sin Lujan Work Phone: [facility] Work Phone: Start: 02-02-2024 End: 02-02-[address] Sin Lujan Work Phone: [facility] Work Phone: Start: 02-02-2024 End: 02-02-[address] Sin Lujan Work Phone: [facility], [facility] Work Phone: Start: 01-15-2024 End: 01-15-[address] Sin Lujan Work Phone: [facility] Work Phone: Start: 01-15-2024 End: 01-15-[address] Sin Lujan Work Phone: [facility]-Laboratory, Phy Office [address] [place] [address] Start: 12-03-2023 End: 12-03-[address] Sin Lujan Work Phone: [facility] Work Phone: Start: 11-18-2023 End: 11-18-[address] Sin Lujan Work Phone: [facility] Work Phone: Start: 11-18-2023 End: 11-18-[address] Sin Lujan Work Phone: [facility] Work Phone: Start: 10-29-2023 End: 10-29-[address] Sin Lujan Work Phone: [facility] Work Phone: Start: 10-29-2023 End: 10-29-[address] [facility] Work [facility] Start: 10-29-2023 End: 10-29-[address] Sin Lujan Work Phone: [facility] [place] Work Phone: Start: 10-20-2023 End: 10-20-[address] Sin Lujan Work Phone: [facility] Work Phone: Start: 10-20-2023 End: 10-20-[address] Sin Lujan Work Phone: [facility]-Ultrasound, [facility] Work Phone: Start: 10-13-2023 End: 10-13-[address] Sin Lujan Work Phone: [facility] Work Phone: Start: 10-13-2023 End: 10-13-[address] Sin Lujan Work Phone: [facility]-Laboratory, Phy Office 3rd Flr Start: 10-09-2023 End: 10-09-[address] Sin Lujan Work Phone: [facility] Work Phone: Start: 10-09-2023 End: 10-09-2023 Patient encounter procedure 2ND PRESSMAN-C Jeanna Davis 2ND PRESSMAN Work Phone: [facility]-Laboratory, Phy Office 3rd Flr Start: 10-06-2023 End: 10-06-2023 ambulatory 2ND PRESSMAN-C Jeanna Davis 2ND PRESSMAN Work Phone: [facility] Work Phone: Start: 10-06-2023 End: 10-06-2023 Patient encounter procedure 2ND PRESSMAN-C Jeanna Davis 2ND PRESSMAN [facility] Start: 08-06-2023 End: 08-06-2023 Patient encounter procedure 2ND PRESSMAN-C Jeanna Davis 2ND PRESSMAN Work Phone: [facility]-Cat Scan, [facility] Work Phone: Start: 07-14-2023 End: 07-14-2023 Patient encounter procedure 2ND PRESSMAN-C Jeanna Davis 2ND PRESSMAN Work Phone: [facility] Work Phone: Start: 06-25-2023 End: 06-25-2023 Patient encounter procedure 2ND PRESSMAN-C Jeanna Davis 2ND PRESSMAN Work Phone: [facility] [place] Work Phone: Start: 06-19-2023 End: 06-19-[address] Sin Lujan Work Phone: [facility] Work Phone: Start: 06-19-2023 End: 06-19-[address] Sin Lujan Work Phone: [facility]-Laboratory, Phy Office [address] [place] [address] Start: 06-12-2023 Non-patient / Non-visit Dr. Aashish Lujan Work Phone: [facility] Start: 06-12-2023 End: 06-12-[address] Sin Lujan Work Phone: [facility]-Pulmonary Services/Neurology Work Phone: Start: 06-02-2023 End: 06-02-[address] Sin Lujan Work Phone: [facility] Work Phone: Start: 06-02-2023 End: 06-02-[address] Sin Lujan Work Phone: [facility]-Cat Scan, [facility] Work Phone: Start: 05-20-2023 Non-patient / Non-visit Dr. Aashish Lujan Work Phone: [facility] Start: 05-19-2023 End: 05-19-[address] Sin Lujan Work Phone: [facility] Work Phone: Start: 05-19-2023 End: 05-19-[address] Sin Lujan Work Phone: [facility]-Pulmonary Services/Neurology Work Phone: Start: 04-09-2023 End: 04-09-[address] Sin Lujan Work Phone: [facility] Work Phone: Start: 03-17-2023 End: 03-17-[address] Sin Lujan Work Phone: [facility]-Laboratory, Phy Office 3rd Txr Start: 03-06-2023 Non-patient / Non-visit Dr. Aashish Lujan Work Phone: [facility] Work Phone: Start: 02-28-2023 Non-patient / Non-visit Dr. Aashish Lujan [facility] Start: 02-27-2023 Non-patient / Non-visit Dr. Aashish Lujan Work Phone: [facility] Start: 02-27-2023 End: 02-27-[address] Sin Lujan Work Phone: [facility] Work Phone: Start: 02-27-2023 End: 02-27-[address] Sin Lujan Work Phone: [facility]-Cardiovascula r Services Start: 02-26-2023 End: 02-26-[address] Sin Lujan Work Phone: [facility] Work Phone: Start: 02-26-2023 End: 02-26-[address] Sin Lujan Work Phone: [facility] Start: 02-17-2023 End: 02-17-[address] Sin Lujan Work Phone: [facility] Start: 01-01-2023 End: 01-01-[address] Sin Lujan Work Phone: [facility] Start: 10-11-2022 End: 10-11-[address] Sin Lujan Work Phone: [facility] Work Phone: Start: 10-11-2022 End: 10-11-[address] Sin Lujan Work Phone: [facility] Start: 09-05-2022 End: 09-05-[address] Sin Lujan Work Phone: [facility] Start: 08-05-2022 Non-patient / Non-visit Dr. Aashish Lujan Work Phone: [facility] Start: 07-31-2022 End: 07-31-[address] [facility] Start: 07-29-2022 Non-patient / Non-visit Dr. Aashish Lujan Work Phone: [facility] Start: 07-29-2022 End: 07-29-[address] Sin Lujan Work Phone: [facility] Work Phone: Start: 07-29-2022 End: 07-29-[address] Sin Lujan Work Phone: [facility]-Pulmonary Services/Neurology Start: 07-04-2022 End: 07-04-[address] Sin Lujan Work Phone: [facility] Start: 06-09-2022 Chart Update No PCP None [facility] Work Phone: Start: 05-29-2022 Chart Update No PCP None [facility] Work Phone: Start: 05-29-2022 End: 05-29-[address] Sin Lujan Work Phone: [facility] Start: 05-28-2022 Patient encounter procedure No PCP None OB-Ygdtjwcxri-XOG Jackelin 1800 Work Phone: Start: 05-13-2022 End: 05-13-[address] Sin Lujan Work Phone: [facility] Start: 05-02-2022 End: 05-02-[address] [facility] Start: 02-21-2022 End: 02-21-[address] Sin Lujan Work Phone: [facility] Start: 02-18-2022 End: 02-18-[address] Sin Lujan Work Phone: [facility] Start: 02-08-2022 End: 02-08-[address] [facility] Start: 01-10-2022 End: 01-10-[address] Sin Lujan Work Phone: [facility] Start: 12-24-2021 End: 12-24-[address] Sin Lujan Work Phone: [facility]-Laboratory Start: 12-19-2021 End: 12-19-[address] Sin Lujan Work Phone: [facility]-Laboratory, [facility] Patient encounter status No PCP None [id number]-TTO Jackelin 1800 Work Phone: Procedures Date Procedure Procedure Detail Performing Clinician Start: 06-01-[address] [place] Lujan MD Work Phone: Start: 06-01-2025 Mean corpuscular hem oglobin concentration determination Dr. [place] Lujan MD Work Phone: Start: 06-01-2025 Platelet mean volume determination Dr. [place] Lujan MD Work Phone: Start: 05-31-2025 Blood count smear mc rscp w/mnl difrntl wbc count Dr. [place] Lujan MD Work Phone: Start: 05-31-2025 Nucleated red blood cell count procedure Dr. [place] Lujan MD Work Phone: Start: 05-31-2025 Serum inorganic phos phate measurement Dr. [place] Lujan MD Work Phone: Start: 05-30-2025 Urine microscopy: red cells Dr. [place] Lujan MD Work Phone: Start: 05-30-2025 Urnls dip stick/tabl et reagent auto microscopy Dr. [place] Lujan MD Work Phone: Start: 05-30-2025 Carbon dioxide measu rement, partial pressure Dr. [place] Lujan MD Work Phone: Start: 05-30-2025 Gases blood o2 satur ation only direct lesly Dr. [place] Lujan MD Work Phone: Start: 05-30-2025 Measurement of parti al pressure of oxygen in blood Dr. [place] Lujan MD Work Phone: Start: 05-30-[address] [place] Lujan MD Work Phone: Start: 05-30-2025 Plain chest X-ray Dr. Marquis Lujan MD Work Phone: Start: 05-30-[address] [place] Lujan MD Work Phone: Start: 05-30-2025 Sars-cov-2 Dr. Reynaldo Lujan MD Work Phone: Start: 05-30-[address] [place] Lujan MD Work Phone: Start: 05-27-[address] [place] Lujan MD Work Phone: Start: 05-27-2025 Plain chest X-ray Dr. Marquis Lujan MD Work Phone: Start: 05-27-2025 Blood count smear mc rscp w/mnl difrntl wbc count Dr. [place] Lujan MD Work Phone: Start: 05-27-2025 Mean corpuscular hem oglobin concentration determination Dr. [place] Lujan MD Work Phone: Start: 05-27-2025 Nucleated red blood cell count procedure Dr. [place] Lujan MD Work Phone: Start: 05-27-2025 Platelet mean volume determination Dr. [place] Lujan MD Work Phone: Start: 05-20-[address] [place] Lujan MD Work Phone: Start: 05-08-2025 Computed tomography of abdomen and pelvis with intravenous contrast Dr. [place] Lujan MD Work Phone: Start: 05-08-[address] [place] Lujan MD Work Phone: Start: 05-08-2025 Venous oxygen satura tion measurement Dr. [place] Lujan MD Work Phone: Start: 05-08-2025 X-ray of chest, PA a nd lateral views Dr. [place] Lujan MD Work Phone: Start: 05-08-2025 Urine microscopy: red cells Dr. [place] Lujan MD Work Phone: Start: 05-08-2025 Urnls dip stick/tabl et reagent auto microscopy Dr. [place] Lujan MD Work Phone: Start: 05-08-2025 Blood count smear mc rscp w/mnl difrntl wbc count Dr. [place] Lujan MD Work Phone: Start: 05-08-[address] [place] Lujan MD Work Phone: Start: 05-08-2025 Mean corpuscular hem oglobin concentration determination Dr. [place] Lujan MD Work Phone: Start: 05-08-2025 Nucleated red blood cell count procedure Dr. [place] Lujan MD Work Phone: Start: 05-08-2025 Platelet mean volume determination Dr. [place] Lujan MD Work Phone: Start: 05-08-[address] se measurement Dr. [place] Lujan MD Work Phone: Start: 01-11-2025 CT of chest without contrast Dr. [place] Lujan MD Work Phone: Start: 01-06-2025 Blood count smear rscp w/mnl difrntl wbc count Dr. Christy Huerta DO Work Phone: Start: 01-06-[address] Christy Huerat DO Work Phone: Start: 01-06-2025 Mean corpuscular [...] ph pco2 po2 co2 hco3 Sandyblanca Dykes Colby DO Work Phone: Start: 08-20-2024 Glucose quantitative [...] 08-14-2024 Glucose quantitative blood xcpt reagent strip Elizabteh Tyler MD Work Phone: Start: 08-14-2024 Glucose [...] End: 08-13-2024 Assay of troponin quantitative Ana Rosakosta Irizarry Carlin DO Work Phone: Start: 08-13-2024 End: [...] Rosa Edie Carlin DO Work Phone: Start: 6 End: 08-13-2024 Basic metabolic panel calcium total Janell Booker MD Work Phone: Start: 08-13-2024 Manual Differential panel - Blood Jimmy Costa DO Work Phone: Start: 08-13-2024 EEG CONTINUOUS MONITORING May Sherice Felipe DO Work Phone: Start: 08-13-2024 Blood count [...] Soto MD Start: 08-12-2024 Antibody screen REYNALDO ROWLAND SIXTO Comment on above: Performed By: #### L [id number] ####De Icer: MARY SOTELO ([id number])[facility] ([facility])[address] [place] [address] Start: 08-12-2024 Blood typing serologic abo April Soto MD Start: 08-12-2024 End: 08-12-2024 Cyanocobalamin vitamin b-12 May Wang DO Work Phone: Start: 08-12-2024 Assay of troponin quantitative Sapphire Bianchi PA-C Work Phone: Start: 08-12-2024 Blood gases any comb ination ph pco2 po2 co2 hco3 Ana Rosakosta Carlin DO Work Phone: Start: 08-12-2024 Bacteria identified in Blood by Culture Sapphire Bianchi PA-C Work Phone: Start: 08-12-2024 Blood gases, venous measurement Sapphire Bianchi PA-C Work Phone: Start: 08-12-2024 Comprehensive metabo lic panel Sapphire Bianchi PA-C Work Phone: Start: 08-12-2024 HC CUL TYP ID BLD PT HGN 6+ TRGT Sapphire Bianchi PA-C Work Phone: Start: 08-12-2024 Radiologic exam ches t single view Sapphire Bianchi PA-C Work Phone: Start: 08-12-2024 Ecg routine ecg w/le ast 12 lds i&r only Sapphire Bianchi PA-C Work Phone: Start: 08-11-2024 Ct head/brain w/o co ntrast material Elieser Solis MD Work Phone: Start: 08-10-2024 Glucose quantitative blood xcpt reagent strip Fly Emerson DO Work Phone: Start: 08-10-2024 Glucose quantitative blood xcpt reagent strip Fly Holli DO Work Phone: Start: 08-10-2024 End: 08-10-2024 Glucose quantitative blood xcpt reagent strip Fly Holli DO Work Phone: Start: 08-10-2024 End: 08-10-2024 Glucose quantitative blood xcpt reagent strip Fly Emerson DO Work Phone: Start: 08-10-2024 Basic metabolic pane l calcium total May Sherice Wang DO Work Phone: Start: 08-10-2024 Complement antigen e ach component Saroj Gaffney MD Work Phone: Start: 08-09-2024 Glucose quantitative blood xcpt reagent strip Fly Emerson DO Work Phone: Start: 08-09-2024 End: 08-09-2024 [...] Glucose quantitative blood xcpt reagent strip Fly Emerson DO Work Phone: Start: 08-09-2024 End: 08-09-2024 [...] Phone: Start: 08-08-2024 Renal function panel Ja connermarlo Wang DO Work Phone: Start: 08-07-2024 Glucose [...] May Sherice Iqbalnyder DO Work Phone: Start: 08-06-2024 Glucose quantitative [...] on above: Performed By: #### L [id number] ####De Icer: MARY SOTELO ([id number])[facility] ([address] Start: 08-06-2024 Blood typing serologic abo Jomar Snider MD Work Phone: Start: 08-06-2024 Basic metabolic pane l calcium total May Sherice Wang DO Work Phone: Start: 08-05-2024 Glucose [...] May Sherice Reshamirnyder DO Work Phone: Start: 08-04-2024 Glucose quantitative [...] Glucose quantitative blood xcpt reagent strip Fly Emerson DO Work Phone: Start: 08-03-2024 Glucose quantitative blood xcpt reagent strip Fly Emerson DO Work Phone: Start: 08-03-2024 Glucose quantitative blood xcpt reagent strip Saroj Sadler MD Work Phone: Start: 08-03-2024 End: 08-03-2024 Basic metabolic panel calcium total May Sherice Reamsnyder DO Work Phone: Start: 08-02-2024 Glucose quantitative blood xcpt reagent strip Saroj Sadler MD Work Phone: Start: 08-02-2024 Glucose quantitative blood xcpt reagent strip Saroj Sadler MD Work Phone: Start: 08-02-2024 Glucose quantitative blood xcpt reagent strip Kena Heath DO Work Phone: Start: 08-02-2024 Basic metabolic pane l calcium total May Sherice Wang DO Work Phone: Start: 08-01-2024 Glucose quantitative blood xcpt reagent strip Kena Heath DO Work Phone: Start: 08-01-2024 Glucose quantitative blood xcpt reagent strip Kena Heath DO Work Phone: Start: 08-01-2024 End: 08-01-2024 Renal function panel Joycelyn Noe O Work Phone: Start: 08-01-2024 Renal function panel Layton Diane DO Work Phone: Start: 08-01-2024 Ecg routine ecg w/le ast 12 lds trcg only w/o i&r Kena Heath DO Work Phone: Start: 08-01-2024 [...] on above: Performed By: #### L [id number] ####De Icer: MARY SOTELO ([id number])[facility] ([facility])[address] [place] [address] Start: 07-31-2024 ABO and Rh group [Ty pe] in Blood by Confirmatory method Joycelyn Diane DO Work Phone: Start: 07-31-2024 Blood typing serologic abo Joycelyn Diane DO Work Phone: Start: 07-31-2024 End: 07-31-2024 Renal function panel Joycelyn Diane D O Work Phone: Start: 07-31-2024 CHEST PHYSIOTHERAPY Jaden tawana Diane DO Work Phone: Start: 07-31-2024 Blood gases any comb ination ph pco2 po2 co2 hco3 Kena Luttmann DO Work Phone: Start: 07-31-2024 End: 07-31-2024 Renal function panel Joycelyn Diane D O Work Phone: Start: 07-31-2024 End: 07-31-2024 Renal function panel Joycelyn Diane D O Work Phone: Start: 07-30-2024 Renal function panel Layton Diane DO Work Phone: Start: 07-30-2024 CHEST PHYSIOTHERAPY Stanley tawana Dinae DO Work Phone: Start: 07-30-2024 EXTUBATION Joycelyn leigh DO Work Phone: Start: 07-30-2024 Renal function panel Layton Diane DO Work Phone: Start: 07-30-2024 Blood gases any comb ination ph pco2 po2 co2 hco3 Kena Luttmann DO Work Phone: Start: 07-30-2024 End: 07-30-2024 Renal function panel Joycelyn Diane D O Work Phone: Start: 07-30-2024 Radiologic exam ches t single view Joycelyn Diane DO Work Phone: Start: 07-30-2024 Blood gases any comb ination ph pco2 po2 co2 hco3 Congregational Parkinson DO Start: 07-30-2024 Renal function panel Traylor quinchaya Diane DO Work Phone: Start: 07-29-2024 End: 07-29-2024 Glucose quantitative blood xcpt reagent strip Kena Heath DO Work Phone: Start: 07-29-2024 POCT GLUCOSE METER UNSOLICITED RESULTS Kena Heath DO Work Phone: Start: 07-29-2024 POCT GLUCOSE METER UNSOLICITED RESULTS Kena Heath DO Work Phone: Start: 07-29-2024 Renal function panel Traylor susana Diane DO Work Phone: Start: 07-29-2024 IR CVC TUNNELED DIAL YSIS CATHETER PLACEMENT Joycelyn Diane DO Work Phone: Start: 07-29-2024 Blood gases any comb ination ph pco2 po2 co2 hco3 Joycelyn Diane DO Work Phone: Start: 07-29-2024 EEG CONTINUOUS MONITORING Torito Mahajan Work Phone: Start: 07-29-2024 Renal function panel Traylor susana Mari Diane DO Work Phone: Start: 07-29-2024 Blood gases any comb ination ph pco2 po2 co2 hco3 Joycelyn Diane DO Work Phone: Start: 07-29-2024 Blood gases any comb ination ph pco2 po2 co2 hco3 Saroj Knox MD Work Phone: Start: 07-29-2024 End: 07-29-2024 Renal function panel Joycelyn Noe O Work Phone: Start: 07-29-2024 Radiologic exam ches t single view Joycelyn Diane DO Work Phone: Start: 07-28-2024 End: 07-28-2024 Assay of phosphorus inorganic Joycelyn Diane DO Work Phone: Start: 07-28-2024 Glucose quantitative blood xcpt reagent strip Kena Heath DO Work Phone: Start: 07-28-2024 Assay of phosphorus inorganic Joycelyn Diane DO Work Phone: Start: 07-28-2024 Glucose quantitative blood xcpt reagent strip Kena Heath DO Work Phone: Start: 07-28-2024 Radiologic exam ches t single view Jocyelyn Diane DO Work Phone: Start: 07-28-2024 Basic metabolic pane l calcium total Joycelyn Guerra Diane DO Work Phone: Start: 07-28-2024 Ecg routine ecg w/le ast 12 lds trcg only w/o i&r Joycelyn Guerra Diane DO Work Phone: Start: 07-28-2024 EEG CONTINUOUS MONITORING Torito Mahajan Work Phone: Start: 07-28-2024 Glucose quantitative blood xcpt reagent strip Kena Heath DO Work Phone: Start: 07-28-2024 Blood gases any comb ination ph pco2 po2 co2 hco3 Saroj Knox MD Work Phone: Start: 07-28-2024 End: 07-28-2024 Comprehensive metabolic panel Kena Kumar DO Work Phone: Start: 07-27-2024 Glucose quantitative blood xcpt reagent strip Kena Masseybryan DO Work Phone: Start: 07-27-2024 Glucose quantitative blood xcpt reagent strip Kena Kumar DO Work Phone: Start: 07-27-2024 Basic metabolic pane l calcium total Saroj Knox MD Work Phone: Start: 07-27-2024 Ecg routine ecg w/le ast 12 lds trcg only w/o i&r Saroj Knox MD Work Phone: Start: 07-27-2024 End: 07-27-2024 Glucose quantitative blood xcpt reagent strip Kena Sparklerubia DO Work Phone: Start: 07-27-2024 End: 07-27-2024 [...] ination ph pco2 po2 co2 hco3 Clara Arguellesmartir DO Work Phone: Start: 07-27-2024 EEG [...] Start: 07-27-2024 End: 07-27-2024 Comprehensive metabolic panel Simone Momin DO Work Phone: Start: 07-27-2024 Manual Differential panel - Blood Kena Kumar DO Work Phone: Start: 07-27-2024 End: 07-27-2024 Smr prim src gram/giemsa stain bct fungi/cell SaGuerita Momin DO Work Phone: Start: 07-27-2024 End: 07-27-2024 Assay of troponin quantitative Clara Mayes DO Work Phone: Start: 07-27-2024 Insj non-tunneled ce ntral venous cath age 4 yr/> Calixto Tervino MD Work Phone: Start: 07-27-2024 Us vasc access sits vsl patency ndl entry Calixto Trevino MD Work Phone: Start: 07-27-2024 Radiologic exam ches t single view Saroj Knox MD Work Phone: Start: 07-26-2024 Blood gases any comb ination ph pco2 po2 co2 hco3 Simone Momin DO Work Phone: Start: 07-26-2024 Assay of osmolality blood SaGuerita oMmin DO Work Phone: Start: 07-26-2024 Artl cathj/cannulj mntr/transfusion spx prq Calixto Trevino MD Work Phone: Start: 07-26-2024 Creatinine other source Simone Momin DO Work Phone: Start: 07-26-2024 Iaadiadoo not otherw ise specified Simone Momin DO Work Phone: Start: 07-26-2024 Comprehensive [...] MD Work Phone: Start: 07-24-2024 Antibody screen Gorge Lujan Comment on above: Performed By: #### B EYAD MCDONNELLS, [id number] ####[facility] [id number] [place], [place], [id number] Start: 02-02-2024 CT of chest without contrast Dr. Sin Lujan Work Phone: Start: 10-29-2023 Investigation of transfusion reaction Dr. Sin Lujan Work Phone: Start: 10-29-2023 [address] micro[address] l culture Dr. Sin Lujan Work Phone: Start: 10-20-[address] Aashish Lujan Work Phone: Start: 10-13-[address] Suraj Lujan Work Phone: Start: 08-06-2023 CT of chest without contrast 2ND PRESSMAN-C Jeanna Davis 2ND PRESSMAN Work Phone: Start: 06-02-2023 CT of chest [...] w/ 2 .5 x 28 mm Promus Synergy 01/15/2018; PCI-MIESHA-Mid LCx w/ 3.0 x 16mm Promus Synergy 02/04/2018 Start: 04-02-2012 Colonoscopy Kidney Air Pollution Analyst rdinators Work Phone: Start: 12-26-2009 Lipid 1996 panel - S dottie or Plasma Kidney Coordinators Work Phone: Appendectomy No PCP None Hysterectomy No PCP None Plan of Treatment Date Care Activity Detail Author Start: 2034 RSV Vaccine (1 - 1-dose 75+ series) RSV Vaccine (1 - 1-dose 75+ series) [facility] Start: 08-12-2029 Cyanocobalamin vitamin b-12 Vitamin B-12 [facility] Start: 08-12-2029 [facility] Start: 09-04-2027 Diabetes Screening Diabetes Screening [facility] Start: 07-08-2027 DTaP/Tdap/Td Vaccines (3 - Td or Tdap) DTaP/Tdap/Td Vaccines (3 - Td or Tdap) [facility] Start: 07-08-2027 Urine microalbumin profile DTaP,Tdap,Td Vaccine (3 - Td or Tdap) [facility] Start: 07-08-2027 [facility] Start: 01-31-2026 Pneumococcal Vaccine: 50+ Years (3 of 3 - PCV20 or PCV21) Pneumococcal Vaccine: 50+ Years (3 of 3 - PCV20 or PCV21) [facility] Start: 09-20-2025 Pneumococcal Vaccine: Pediatrics (0 to 5 Years) and At-Risk Patients (6 to 64 Years) (3 of 3 - PPSV23 or PCV20) Pneumococcal Vaccine: Pediatrics (0 to 5 Years) and At-Risk Patients (6 to 64 Years) (3 of 3 - PPSV23 or PCV20) [facility] Start: 09-20-2025 [facility] Start: 09-06-2025 Diabetes: Estimated Glomerular Filtration Rate for Kidney Health Diabetes: Estimated Glomerular Filtration Rate for Kidney Health [facility] Start: 08-30-2025 Diabetes: Estimated Glomerular Filtration Rate for Kidney Health Diabetes: Estimated Glomerular Filtration Rate for Kidney Health [facility] Start: 08-25-2025 Diabetes: Estimated Glomerular Filtration Rate for Kidney Health Diabetes: Estimated Glomerular Filtration Rate for Kidney Health [facility] Start: 08-24-2025 [facility] Start: 08-11-2025 Diabetes: Estimated Glomerular Filtration Rate for Kidney [facility] Diabetes: Estimated Glomerular Filtration Rate for Kidney Health [facility] Start: 08-10-2025 [facility] Start: 07-26-2025 Hemoglobin A1c measurement [facility] Start: 07-26-2025 Thyroid stimulating hormone measurement [facility] Start: 06-01-2025 Patient discharge [facility] Start: 06-01-2025 End: 06-01-2025 [facility] Start: 06-01-2025 Hemodialysis care [facility] Start: 06-01-2025 Ambulation without limitation [facility] Start: 06-01-2025 Dietary regime [facility] Start: 06-01-2025 Patient education [facility] Start: 06-01-2025 Cardiac monitoring [facility] Start: 06-01-2025 Notification of physician [facility] Start: 06-01-2025 Oxygen therapy [facility] Start: 06-01-2025 Pulse taking [facility] Start: 05-31-2025 Catheterization of vein [facility] Start: 05-31-2025 Notification of physician [facility] Start: 05-31-2025 End: 05-31-2025 [facility] Start: 05-30-2025 [facility] Start: 05-30-2025 End: 05-30-2025 [facility] Start: 05-30-2025 Hemodialysis care [facility] Start: 05-29-2025 [facility] Start: 05-29-2025 [facility] Start: 05-28-2025 End: 05-28-2025 [facility] Start: 05-28-2025 Care regimes management [facility] Start: 05-28-2025 Notification of physician [facility] Start: 05-28-2025 Referral to vascular surgeon [facility] Start: 05-28-2025 Referral to general surgeon [facility] Start: 05-28-2025 Care of hemodialysis equipment [facility] Start: 05-28-2025 Hemodialysis care [facility] Start: 05-28-2025 End: 05-28-2025 [facility] Start: 05-28-2025 Following clinical pathway protocol [facility] Start: 05-28-2025 Ambulation without limitation [facility] Start: 05-28-2025 Assessment of risk of venous thromboembolism [facility] Start: 05-28-2025 Care regimes management [facility] Start: 05-28-2025 Insertion of catheter into peripheral vein [facility] Start: 05-28-2025 Measuring intake and output [facility] Start: 05-28-2025 Notification of physician [facility] Start: 05-28-2025 Oxygen therapy [facility] Start: 05-28-2025 Providing care according to standard [facility] Start: 05-28-2025 Referral to teacher of the emotionally disturbed [facility] Start: 05-28-2025 End: 05-28-2025 [facility] Start: 05-28-2025 Verification routine [facility] Start: 05-28-2025 Hospital admission, emergency, from emergency room, medical nature [facility] Start: 05-28-2025 Admission procedure [facility] Start: 05-28-2025 Inhalation therapy procedure [facility] Start: 05-28-2025 Patient referral to dietitian [facility] Start: 05-27-2025 End: 05-27-2025 [facility] Start: 05-20-2025 [facility] Start: 05-08-2025 [facility] Start: 04-09-2025 [facility] Start: 01-06-2025 Patient discharge [facility] Start: 01-06-2025 Referral to occupational therapist [facility] Start: 01-06-2025 Referral to service [facility] Start: 01-05-2025 [facility] Start: 01-05-2025 Care of hemodialysis equipment [facility] Start: 01-05-2025 Hemodialysis care [facility] Start: 01-05-2025 [facility] Start: 01-05-2025 [facility] Start: 01-04-2025 End: 01-04-2025 [facility] Start: 01-04-2025 Care regimes management [facility] Start: 01-04-2025 Notification of physician [facility] Start: 01-04-2025 Continuous pulse oximetry [facility] Start: 01-04-2025 Care of hemodialysis equipment [facility] Start: 01-04-2025 Hemodialysis care [facility] Start: 01-04-2025 [facility] Start: 01-04-2025 Application of intermittent pneumatic compression device [facility] Start: 01-04-2025 End: 01-04-2025 [facility] Start: 01-04-2025 Notification of physician [facility] Start: 01-04-2025 Consultation for treatment [facility] Start: 01-04-2025 Following clinical pathway protocol [facility] Start: 01-04-2025 Ambulation without limitation [facility] Start: 01-04-2025 Assessment of risk of venous thromboembolism [facility] Start: 01-04-2025 Inhalation therapy procedure [facility] Start: 01-04-2025 Insertion of catheter into peripheral vein [facility] Start: 01-04-2025 Measuring intake and output [facility] Start: 01-04-2025 Oxygen therapy [facility] Start: 01-04-2025 Providing care according to standard [facility] Start: 01-04-2025 Referral to teacher of the emotionally disturbed [facility] Start: 01-04-2025 [facility] Start: 01-04-2025 Care regimes management [facility] Start: 01-04-2025 Dual pressure spontaneous ventilation support [facility] Start: 01-04-2025 Patient referral to dietitian [facility] Start: 01-03-2025 Admission procedure [facility] Start: 12-28-2024 Anesthesia vascular shunt/shunt revision [facility] Start: 12-28-2024 Arteriovenous anastomosis open direct [facility] Start: 12-28-2024 Patient discharge [facility] Start: 2024 Advance Directive Discussion Advance Directive Discussion [facility] Start: 2024 Screening for osteoporosis Bone Density Screening [facility] Start: 11-20-2024 [facility] Start: 11-04-2024 [facility] Start: 08-13-2024 End: 08-13-2024 ambulatory [facility] Start: 08-13-2024 End: 08-13-2024 Patient encounter procedure 08/13/2024 11:15 AM EDT Office Visit [facility] [address] [place] [address] Romero Wright MD [facility] [place] [address] [facility] Start: 08-10-2024 End: 07-27-2025 CT Head WO [facility] Work Phone: Start: 07-04-2024 Covid-19 Vaccine ( season) Covid-19 Vaccine ( season) [facility] Start: 07-04-2024 COVID-19 Vaccine ( season) COVID-19 Vaccine ( season) [facility] Start: 07-04-2024 COVID-19 Vaccine ( season) COVID-19 Vaccine ( season) [facility] Start: 07-04-2024 Influenza vaccination Influenza Vaccine (#1) [facility] Start: 07-04-2024 [facility] Start: 10-13-2023 [facility] Start: 10-13-2023 Bacteria identified in Urine by Culture [facility] Start: 10-23-2022 Shingrix Vaccine (2 of 2) Shingrix Vaccine (2 of 2) [facility] Start: 10-23-2022 Zoster Vaccines (2 of 2) Zoster Vaccines (2 of 2) [facility] Start: 10-23-2022 [facility] Start: 09-01-2022 Patient referral [facility] Work Phone: Start: 04-02-2022 Screening for malignant neoplasm of colon [facility] Start: 2019 RSV Immunization aged 60 or older (1 - 1-dose 60+ series) RSV Immunization aged 60 or older (1 - 1-dose 60+ series) [facility] Start: 2019 RSV Immunization for Adults (1 - Risk 60-74 years 1-dose series) RSV Immunization for Adults (1 - Risk 60-74 years 1-dose series) [facility] Start: 2019 [facility] Start: 03-05-2017 End: 03-06-2017 *CMP Complete Metabolic Panel *CMP Complete Metabolic Panel [facility] Work Phone: Start: 03-05-2017 End: 03-06-2017 *Microalbumin, Creatine Ratio, rand urine *Microalbumin, Creatine Ratio, rand urine [facility] Work Phone: Start: 03-05-2017 End: 03-06-2017 HbA1c *HgA1C [facility] Work Phone: Start: 03-05-2017 End: 03-06-2017 Lipid panel [AGGREGATE] *Lipid Profile [facility] Work Phone: Start: 02-18-2017 End: 02-23-2017 *CMP Complete Metabolic Panel *CMP Complete Metabolic Panel [facility] Work Phone: Start: 02-18-2017 End: 02-23-2017 *Microalbumin, Creatine Ratio, rand urine *Microalbumin, Creatine Ratio, rand urine [facility] Work Phone: Start: 02-18-2017 End: 02-23-2017 Lipid panel [AGGREGATE] *Lipid Profile [facility] Work Phone: Start: 12-26-2014 Lipid panel Lipid Screening [facility] Start: 01-21-2013 End: 01-21-2013 *BMP *BMP [facility] Work Phone: Start: 01-21-2013 End: 01-21-2013 *CBC with Differential *CBC with Differential [facility] Work Phone: Start: 01-21-2013 End: 01-21-2013 *CDIF - Clostridium Diff. Toxin Stool *CDIF - Clostridium Diff. Toxin Stool [facility] Work Phone: Start: 01-21-2013 End: 01-21-2013 Erythrocyte sedimentation rate *Sedimentation Rate (ESR) [facility] Work Phone: Start: 01-21-2013 End: 01-21-2013 Helicobacter pylori IgG Ab [Units/volume] in Serum *Helicobacter pylori [facility] Work Phone: Start: 01-21-2013 End: 01-21-2013 PT-TMJ PT-TMJ Physical Therapy [facility], [address] [place] [address], [id number] [facility] Work Phone: Start: 12-27-2012 Diabetes Screening Diabetes Screening [facility] Start: 12-04-2012 Screening for malignant neoplasm of breast Mammogram Screening [facility] Start: 2009 Pneumococcal Vaccine: 50+ (1 of 1 - PCV) Pneumococcal Vaccine: 50+ (1 of 1 - PCV) [facility] Start: 2009 Shingrix Vaccine (1 of 2) Shingrix Vaccine (1 of 2) [facility] Start: 04-30-2005 Urine microalbumin profile DTaP,Tdap,Td Vaccine (2 - Tdap) [facility] Start: 2004 Screening for malignant neoplasm of colon [facility] Start: 1999 Screening for malignant neoplasm of breast [facility] Start: 1989 Screening for malignant neoplasm of cervix [facility] Start: 1980 Screening for malignant neoplasm of cervix [facility] Start: 1978 Hepatitis A Vaccines (1 of 2 - Risk 2-dose series) Hepatitis A Vaccines (1 of 2 - Risk 2-dose series) [facility] Start: 1977 Anxiety Screening Anxiety Screening [facility] Start: 1977 Depression Screening Depression Screening [facility] Start: 1977 Diabetes: Urine Albumin-Creatinine Ratio for Kidney Health Diabetes: Urine Albumin-Creatinine Ratio for Kidney Health [facility] Start: 1977 Hepatitis C screening Hepatitis C Screening [facility] Start: 1977 HIV screening HIV Screening [facility] Start: 1977 [facility] Start: 1971 Depression Monitoring Depression Monitoring [facility] Start: 1971 [facility] Start: 1969 Diabetic foot examination [facility] Start: 1969 Glaucoma screening [facility] Start: 1969 Preventive dental service [facility] Start: 1960 MMR Vaccines (1 of 1 - Standard series) MMR Vaccines (1 of 1 - Standard series) [facility] Start: 1960 [facility] Start: 1959 Annual wellness visit [facility] Start: 1959 Cyanocobalamin vitamin b-12 Vitamin B-12 [facility] Start: 1959 Diabetes: Celiac Disease Screening Diabetes: Celiac Disease Screening [facility] Start: 1959 Lipid panel [facility] Start: 1959 Screening for malignant neoplasm of colon [facility] Start: 1959 [facility] End: 08-09-2024 Bacteria identified in Urine by Culture [facility] [employer] Work Phone: End: 08-20-2024 Blood gases, arterial measurement [facility] End: 08-20-2024 Blood gases, venous measurement [facility] [employer] Work Phone: CT Chest [facility] End: 08-05-2024 ECG 12 lead [facility] [employer] Work Phone: Exercise tolerance test [facility] Lipid 1995 panel - S dottie or Plasma [facility] 1995 panel - S dottie or Plasma [facility] Measurement of respiratory function [facility] Patient Education [facility] Work Phone: Patient referral [facility] Work Phone: Positron emission tomography with computed tomography [facility] Vitamin D, 25-hydrox y measurement [facility] Immunizations Immunization Date Immunization Notes Care Provider Fa cility 10-28-2024 Pneumococcal Vaccine PCV20 (Prevnar 20) Dr. Bird Lujan MD Work Phone: [facility] 10-28-[address] Bird Lujan MD Work Phone: [facility] 09-27-2024 Pfizer Covid-19 (Comirnaty) Dr. Bird Lujan MD Work Phone: [facility] 07-24-2024 Influenza, seasonal, injectable, preservative free; Translations: [Influenza, Split Virus, Trivalent, PF] Tami Alfredo STADIUM MANAGER - BUILDING SERVICEMAN Work Phone: [facility] 07-24-2024 [facility] DO Work Phone: [facility] 08-28-2022 influenza, injectabl e, quadrivalent, contains preservative [facility] DO Work Phone: [facility] 08-28-2022 influenza, injectabl e, quadrivalent, preservative free Dr. Bird Lujan MD Work Phone: [facility] 08-28-[address] [facility] DO Work Phone: [facility] 08-28-2022 influenza virus vaccine, unspecified formulation [facility] Work Phone: [facility] 03-22-2021 Moderna COVID-19 Vaccine 100 MCG/0.5ML Intramuscular Suspension No PCP None [facility] 02-22-2021 Moderna COVID-19 Vaccine 100 MCG/0.5ML Intramuscular Suspension No PCP None [facility] 01-31-2021 pneumococcal conjuga te vaccine, 13 valent No PCP None QY-Ffnaqknqvd-ORS [place] [address] Work Phone: 09-20-2020 pneumococcal polysaccharide vaccine, [address] Sin Lujan Work Phone: [facility] 09-20-2020 pneumococcal vaccine , unspecified formulation Dr. Sin Lujan Work Phone: [facility] Work Phone: 08-28-2020 influenza, injectabl e, quadrivalent, preservative free 2ND PRESSMANPaddy Davis NP Work Phone: [facility] 08-28-2020 influenza, seasonal, injectable Dr. Sin Lujan Work Phone: [facility] 08-28-2020 [facility] DO Work Phone: [facility] 08-12-2018 influenza, injectabl e, quadrivalent, preservative free Dr. Bird Lujan MD Work Phone: [facility] 08-12-2018 influenza, seasonal, injectable No PCP None [id number]-ZOB [place] [address] Work Phone: 08-11-[address] Sin Lujan Work Phone: [facility] 08-11-2017 Influenza, seasonal, injectable, preservative free Tami Alfredo STADIUM MANAGER - BUILDING SERVICEMAN Work Phone: [facility] 08-11-2017 [facility] DO Work Phone: [facility] 07-08-2017 influenza, injectabl e, quadrivalent, contains preservative No PCP None [facility] [place] [place] [address] Work Phone: 07-08-2017 influenza, injectabl e, quadrivalent, preservative free Dr. Bird Lujan MD Work Phone: [facility] 07-08-2017 tetanus toxoid, redu juliette diphtheria toxoid, and acellular pertussis vaccine, adsorbed No PCP None [facility] [place] [employer] [address] Work Phone: 08-12-2016 pneumococcal polysaccharide vaccine, 23 valent No PCP None [facility] [place] [place] [address] Work Phone: 07-15-2016 influenza, injectabl e, quadrivalent, preservative free 2ND PRESSMANPaddy Davis NP Work Phone: [facility] 07-15-2016 influenza, seasonal, injectable Dr. Sin Lujan Work Phone: [facility] 08-07-2015 influenza, injectabl e, quadrivalent, preservative free Dr. Bird Lujan MD Work Phone: [facility] 08-07-2015 influenza, seasonal, injectable No PCP None DI-Pywiepzdgi-SFG Jackelin Hargrove Work Phone: 08-03-[address] Sin Lujan Work Phone: [facility] 08-03-2014 Influenza, seasonal, injectable, preservative free Tami Alfredo STADIUM MANAGER - BUILDING SERVICEMAN Work Phone: [facility] 08-03-2014 [facility] Work Phone: [facility] 04-30-1995 diphtheria and tetan us toxoids, adsorbed for pediatric use [facility] DO Work Phone: [facility] Payers Date Payer Category Payer Unknown [id number] 2025 Unknown [id number] 2024 Private Health Insurance O [facility] [id number] 2024 Medicare [id number] 2024 Self-pay [id number] 2024 Commercial Managed C are - HMO [id number] 2024 Unknown 2024 Unknown [id number] 2011 Private Health Insurance [id number] Unknown [id number] Unknown [facility] PACKAGE PLAN [id number] Unknown [id number] 2.16.840.1.473367.3.579.2. 462 Unknown [id number] 2.16.840.1.947789.3.579.2. 462 Unknown [id number] 2.16.840.1.105516.3.579.2. 462 Unknown [id number] 2.16.840.1.186590.3.579.2. 462 Unknown [id number] 2.16.840.1.235534.3.579.2. 462 Unknown [id number] 2.16.840.1.246955.3.579.2. 462 Unknown [id number] 2.16.840.1.625199.3.579.2. 462 Unknown [id number] 2.16.840.1.007838.3.579.2. 462 Unknown [id number] 2.16.840.1.433635.3.579.2. 462 Unknown [id number] 2.16.840.1.228923.3.579.2. 462 Unknown [id number] 2.16.840.1.980634.3.579.2. 462 Unknown [id number] 2.16.840.1.974001.3.579.2. 462 Unknown [id number] 2.16.840.1.113470.3.579.2. 462 Unknown [id number] 2.16.840.1.294941.3.579.2. 462 Unknown [id number] 2.16.840.1.402324.3.579.2. 462 Unknown [id number] 2.16.840.1.876439.3.579.2. 462 Unknown [id number] 2.16.840.1.522105.3.579.2. 462 Unknown [id number] 2.16.840.1.879626.3.579.2. 462 Unknown [id number] 2.16.840.1.571502.3.579.2. 462 Unknown [id number] 2.16.840.1.385811.3.579.2. 462 Unknown [id number] 2.16.840.1.466032.3.579.2. 462 Unknown [id number] 2.16.840.1.628066.3.579.2. 462 Unknown [id number] 2.16.840.1.611425.3.579.2. 462 Unknown [id number] 2.16.840.1.857189.3.579.2. 462 Unknown [id number] 2.16.840.1.861741.3.579.2. 462 Unknown [id number] 2.16.840.1.348019.3.579.2. 462 Unknown [id number] 2.16.840.1.196252.3.579.2. 462 Unknown [id number] 2.16.840.1.339096.3.579.2. 462 Unknown [id number] 2.16.840.1.713278.3.579.2. 462 Unknown [id number] 2.16.840.1.363316.3.579.2. 462 Unknown [id number] 2.16.840.1.216237.3.579.2. 462 Unknown [id number] 2.16.840.1.743026.3.579.2. 462 Unknown [id number] 2.16.840.1.932795.3.579.2. 462 Unknown [id number] 2.16.840.1.172661.3.579.2. 462 Unknown [id number] 2.16.840.1.060752.3.579.2. 462 Unknown [id number] 2.16.840.1.146898.3.579.2. 462 Unknown [id number] 2.16.840.1.761597.3.579.2. 462 Unknown [id number] 2.16.840.1.123256.3.579.2. 462 Unknown [id number] 2.16840.1.249769.3.579.2. 462 Unknown [id number] 2.840.1.314922.3.579.2. 462 Unknown [id number] 2.840.1.955915.3.579.2. 462 Unknown [id number] 2.840.1.970977.3.579.2. 462 Unknown [id number] 2.840.1.586641.3.579.2. 462 Unknown [id number] 2.840.1.509942.3.579.2. 462 Unknown [id number] 2.840.1.618218.3.579.2. 462 Unknown [id number] 2.840.1.828111.3.579.2. 462 Unknown [id number] 2.16840.1.560024.3.579.2. 462 Unknown [id number] 2.16840.1.242169.3.579.2. 462 Unknown [id number] 2.16840.1.356920.3.579.2. 462 Unknown [id number] 2.16840.1.317313.3.579.2. 462 Unknown [id number] 2.16840.1.099564.3.579.2. 462 Unknown [id number] 2.16840.1.376501.3.579.2. 462 Social History Date Type Detail Facility Start: 01-10-2022 End: 07-14-2023 Tobacco smoking status ILIS Unknown if ever smoked [facility] Start: 08-26-2020 None [facility] Start: 08-26-2020 Spouse/ Signif icant Other [facility] Start: 08-29-2020 Cigarettes [facility] Start: 1960 Sex Assigned At Female [facility] Start: 08-12-2024 End: 08-24-2024 Current smoker Current smoker [facility] Start: 1960 Sex assigned at S [facility] Start: 08-12-2024 End: 08-24-2024 Gender identity Not on file [facility] Start: 08-12-2024 [facility] Start: 08-12-2024 Tobacco use and exposure Smokeless tobacco non-user [facility] Has the [employer], or [employer] threatened to shut off services in your home in past 12Mo No [employer] How often to you hav e a drink containing alcohol? Never [facility] How many standard drinks containing alcohol do you have on a typical day? eLama (I/We) worried belinda er (my/our) food would run out before (I/we) got money to buy more. Never true [employer] Start: 07-26-2024 End: 01-20-2025 Sex Female (finding) [facility] Start: 03-23-2009 End: 05-28-2025 Tobacco smoking status NHIS Ex-smoker [facility] End: 12-18-2009 History of tobacco use Current smoker [facility] End: 12-18-2009 History of tobacco use Cigarette Smoker [facility] Start: 04-02-2012 Alcoholic beverage intake Current non-drinker of alcohol (finding) [facility] Medical Equipment Procedure Code Equipment Code Equipment Origin al Text Equipment Identifier Dates Creation, AV fistula [id number] FDA Start: 12-28-2024 Creation, AV fistula [id number] FDA Start: 12-28-2024 Creation, AV fistula [id number] [facility] Start: 12-28-2024 Blood Sugar Diagnostic (Freestyle Precision [...] test blood sugar s 6-8 times daily [id number] Start: 03-23-2009 Blood Sugar Diagnostic (Freestyle Precision Jeff Strips) strip Start: 08-26-2023 End: 01-27-2025 Blood Sugar Diagnostic (Freestyle Precision Jeff Strips) strip Start: 08-26-2023 End: 01-27-2025 Blood Sugar Diagnostic (Freestyle Precision Jeff Strips) strip Start: 08-26-2023 End: 01-27-2025 Goals Date Patient Goal Desired Activity /State Functional Status Date Assessment Result Facility 06-01-2025 Functional status Ambulates;Bathroom Priv [facility] Work Phone: 01-06-2025 Functional status Ambulates;Bathroom Priv [facility] Work Phone: Mental Status Date Assessment Result Facility 06-01-2025 Cognitive function Voice/Name [facility] Work Phone: 05-20-2025 Cognitive function Awake;Alert;A ppropriate;Fol lows Commands [facility] Work Phone: 05-08-2025 Cognitive function Awake;Alert;A ppropriate;Fol lows Commands [facility] Work Phone: 04-09-2025 Cognitive function Awake;Alert;A ppropriate;Fol lows Commands [facility] Work Phone: 01-06-2025 Cognitive function Voice/Name [facility] Work Phone: 12-28-2024 Cognitive function Sedated [facility] Work Phone: 12-28-2024 Cognitive function Voice/Name [facility] Work Phone: 11-20-2024 Cognitive function Awake;Alert;A ppropriate;Fol lows Commands [facility] Work Phone: Clinical Notes 05-20-2023 to 06-01-2025 Note Date & Type Note Facility 06-01-2025 Discharge summary Note Date/Time June 01, 2025 3:12pm [facility] Medical Records Department [address] [place] [address] Discharge Summary 06/01/25 0755 MR#: [id number] Acct: [id number] Name: SANDY DENG Rep #:[id number] : 1960 64 From: Stacy Huerta DO PCP: Dr. Bird Lujan MD Status :ADM IN Location: [place] [id number]- Providers Date of Admission: 05/28/25 Date of Discharge: 06/01/25 Primary Care Physician: Dr. Bird Lujan MD Consultations 05/28/25 01:21 Consult: Nephrology Routine Consulting Provider: Christy Huerta Reason for Consult: dialysis EMERGENT Consult: No Notified: Yes Date Notified: 05/28/25 Time Notified: 00:26 Method of Notification: ED Physician Initiated 05/28/25 13:23 Consult: General Surgery Routine Consulting Provider: Brielle Turner Reason for Consult: need for tunneled catheter EMERGENT Consult: No Notified: Yes Date Notified: 05/28/25 Time Notified: 13:24 Method of Notification: Verbal 05/28/25 15:26 Consult: Vascular Surgery Routine Consulting Provider: Favian Sinclair Reason for Consult: Nonfunctioning fistula EMERGENT Consult: No Notified: Yes Date Notified: 05/28/25 Time Notified: 15:27 Method of Notification: Verbal Reason For Visit: CHF EXACERBATION Diagnosis Discharge Diagnosis (1) Arteriovenous fistula stenosis: Status: Acute Code(s): T82.858A - Stenosis of other vascular prosthetic devices, implants and grafts, initial encounter Qualifiers: Encounter type: subsequent encounter Qualified Code(s): T82.858D - Stenosis of other vascular prosthetic devices, implants and grafts, subsequent encounter Medications at Discharge Home Medications simvastatin 40 mg tablet 40 mg PO QHS cholesterol 06/21/18 albuterol sulfate 2.5 mg/3 mL (0.083 %) solution for nebulization 2.5 mg (3 mL) inhalation Q2H PRN PRN dyspnea, wheezing ##1 06/23/18 aspirin 81 mg tablet,delayed release 81 mg PO DAILY heart health 12/31/19 oxygen See Rx Instructions NASAL .COMPLEX O2 therapy 12/03/23 ipratropium 0.5 mg-albuterol 3 mg (2.5 mg base)/3 mL nebulization soln 3 ml inhalation Q4H PRN PRN SOB &/OR WHEEZING #180 mL 12/29/23 denosumab 60 mg/mL subcutaneous syringe (Prolia) 60 mg subcut [id number] bone health #1 mL 06/10/24 clopidogrel 75 mg tablet 75 mg PO DAILY anti platelet #90 tabs 07/26/24 nitroglycerin 0.4 mg sublingual tablet 0.4 mg sublingual Q5-15M PRN chest pain #25 tabs 10/21/24 metoprolol tartrate 50 mg tablet 50 mg PO BID blood pressure #180 tabs 11/11/24 amlodipine 10 mg tablet (Norvasc) 10 mg PO DAILY blood pressure 30 days #30 tabs11/20/24 buspirone 7.5 mg tablet 7.5 mg PO DAILY Antianxiety 12/14/24 sevelamer carbonate 800 mg tablet 800 mg PO TID PRN To lower Phosphorus 12/14/24 cefdinir 300 mg capsule 300 mg PO BID 5 days #10 caps 01/06/25 pseudoephedrine-guaifenesin ER 60 mg-600 mg tablet,extend release 12hr (Mucinex D) 1 tab PO BID cold symptoms #14 tabs 01/06/25 blood-glucose sensor (FreeStyle Eileen 2 Plus Sensor device) #6 ea 02/09/25 insulin pump cart,auto,BT,G6/L (Omnipod 5 (G6/Eileen 2 Plus) subcutaneous cartridge) #30 ea 02/09/25 albuterol sulfate 90 mcg/actuation aerosol inhaler 2 puff inhalation Q6H PRN PRNCough #8.5 grams 03/14/25 blood-glucose sensor (Dexcom G6 Sensor device) #3 ea 04/07/25 blood-glucose transmitter (Dexcom G6 Transmitter device) #1 ea 04/07/25 insulin lispro 100 unit/mL subcutaneous solution (Humalog U-100 Insulin) 60 unit(0.6 mL) continuous subcutaneous infusion .continuous #54 mL 04/07/25 ondansetron 4 mg disintegrating tablet 4 mg PO Q8H PRN PRN Nausea #10 tabs 05/08/25 roflumilast 500 mcg tablet (Daliresp) 500 mcg PO DAILY breathing #30 tabs 05/11/25 fluticasone fur. 200 mcg-umeclid 62.5 mcg-vilant 25 mcg inhalat.powder (Trelegy Ellipta) 1 inh inhalation DAILY breathing #3 ea 05/18/25 calcitriol 0.5 mcg capsule 0.5 mcg PO DAILY supplement 05/31/25 potassium chloride 20 mEq tablet,extended release(part/cryst) 20 meq PO BID potassium 05/31/25 Hospital Course Operations - (Fistulogram with dilation due to stenosis) Procedures Dialysis and - (Chest x-ray/AV fistula ultrasound) Summary of Care Provided Minutes Spent on Discharge: 38 Hospital Course: Mrs. Deng is a 64-year-old white female with a history of chronic hypoxic respiratory failure secondary to COPD and end-stage renal disease that is HD dependent who presented to the emergency department at [facility] complaining of shortness of breath.. She also complained of some briefintermittent substernal chest discomfort. She states she has a chronic cough that is a little bit worse but not productive. She states her symptoms of shortness of breath are worse when she lies down. She did albuterol nebulizers at home and it helped a little bit but not much. She denied fever or chills. She does home HD which is a relatively new thing for her with regards to her right upper extremity fistula. Her previous dialysis sessions have not been problematic however when she tried dialysis on the day of presentation the venous return line was causing severe pain and the machine was indicating high pressures. They called the dialysis clinic and she was instructed to come the emergency department. Patient did admit to drinking more fluid than typical at home over the last few days. Vital signs on presentation showed a temperature of 98.3, heart rate 71, respiratory was 20, blood pressure was 166/66 and pulse ox wa 100 % on 3 L nasal cannula which is her baseline. CBC was unremarkable except for a chronic stable anemia. Chemistry panel was consistent with previous labs with her CKD. Her initial troponin was 135 with a delta of 133. Chest x-ray showed volume overload. EKG showed normal sinus rhythm with normal intervals and no ectopy. There were no changes consistent with acute ischemia. Given the issues with her dialysis and her fistula as well as her shortness of breath she was admitted. The initial plan was to put a tunneled dialysis catheter in however this procedure was canceled as they were able to cannulate her fistula. Patient did continue to have pain with cannulation of the fistula and an ultrasound of her fistula was performed and showed abnormal flow. Vascular surgery was consulted and she was taken for a fistulogram on 06/01/2025 at which time she was found to have a severe stenosis. This was opened up. Dialysis was run post procedure and the patient tolerated the procedure well without any issues with flow or pain. Given her improved function of her fistula she was able to be discharged home after dialysis on 06/01/2025. Patientdid develop some somnolence after dialysis initially. She was very anxious and was given a very low-dose of Ativan however she appeared to be get hypercapnia with an elevated CO2 and a mild respiratory acidosis. This resolved fairly quickly with treatment of BiPAP and completion of dialysis. Otherwise she was on her baseline oxygen of 3 L and stable throughout her hospitalization. She will follow-up with Dr. Sinclair from vascular surgery in 2 weeks. She will need to follow-up with Dr. Huerta from nephrology as previously directed by her. I willhave her follow-up with her primary care physician within the next week. No medication changes were made at the time of discharge. She was discharged in stable condition and is to continue her home dialysis as previously directed. Discharge diagnoses: Malfunctioning dialysis fistula Acute on chronic hypoxic and hypercapnic respiratory failure Elevated troponin secondary to demand ischemia and decreased clearance with end-stage renal disease Volume overload secondary to inefficient dialysis Shortness of breath Cachexia CAD Essential hypertension Hyperlipidemia He has RD Chronic anemia secondary to renal disease DM-1 Physical Exam Const alert, oriented x3 and no apparent distress; Negative for average body habitus, healthy appearing or well nourished Constitutional Narrative: Thin, upper middle-aged, white female, who appears older than stated age returning from fistulogram and getting ready to go on dialysis, appears comfortable, nontoxic, spouse at bedside, patient is slightly tired from sedation given during procedure General Appearance: cooperative, well kempt and well developed Orientation / Consciousness: awake, oriented to person, oriented to place and oriented to time HEENT normocephalic, head/scalp atraumatic and moist oral mucous membranes; Negative for hearing grossly normal bilaterally HEENT Narrative: Marked hearing loss, Mallampati 1-2, no thrush Eyes Eyes Narrative: No scleral icterus Neck supple Neck Narrative: Trachea midline Resp normal respiratory effort, no retractions, no use of accessory muscles and clearto auscultation bilaterally Resp Narrative: Few crackles at bases bilaterally Auscultation: rales bilateral base; Negative for crackles, rhonchi or wheezes Cardio regular rate, regular rhythm, S1 normal heart sound, S2 normal heart sound, no murmurs, no rub, no gallops and no clicks GI normal to inspection, nondistended, normoactive bowel sounds, soft to palpation and non-tender GI Narrative: Scaphoid abdomen Extremity no clubbing, cyanosis or edema Extremity Narrative: Right upper extremity fistula which has a thrill bruit and thrill, intervention site covered in clean dry and intact, no signs of swelling or ecchymosis, decreased lean muscle mass Skin no jaundice, no petechiae and no mottling Skin Narrative: Ecchymosis on right anterior chest area Neuro oriented x3, moves all extremities and no focal motor deficits Neuro Narrative: Markedly hard of hearing which limits exam some Speech: speech normal Psych affect normal Psych Narrative: Eye contact is good, patient interacts appropriately, affect is slightly flat but appropriate for current situation Mood & Affect: anxious Medical Records Data Medical Nutrition Assessment Dietitian: Malnutrition Criteria Met Start: 05/30/25 11:40 Freq: Status: Active Protocol: Document 05/30/25 11:41 RMA (Rec: 05/30/25 11:41 RMA [id number]) Nutrition Malnutrition Evidence of Yes Malnutrition Exists Malnutrition ( Chronic moderate): Evidenced By Suboptimal Energy Intake (Moderate),Physical Changes ( Moderate) Clinical Problem Chronic Disease or Condition Related Malnutrition Etiology moderate pro-korey malnutrition in the context of chronic disease related to chronic kidney disease, inadequate oral/energy intake and underweight status Signs/Symptoms as evidenced by BMI 17.0, PO meeting less than 75% estimated nutrition needs and muscle wasting/fat depletion in the clavicle, arms and legs; fluid weight masking muscle weight loss Status Active Problem Altered Nutrient-Related Laboratory Values Etiology (BUN, creatinine and GFR) related to ESRD/CKD Signs/Symptoms as evidenced by BUN level of 55, creatinine level of 4. 05 and GFR of 12. Status Active Problem Recommendation Dietitian Recommend resume PO with 2000 calorie/consistent Recommendations/ carbohydrate; Renal diet. Changes Pt dislikes PO Nepro; but agrees to trying some Beneprotein for tolerance. Weight / BMI Weight Weight: 46.7 kg Body Mass Index (BMI) 16.6 ABG / Lab / Microbiology Data 06/01/25 05:31 06/01/25 05:31 Laboratory: Laboratory Results - last 24 hr 05/31/25 11:43: POC Glucose 318 H 05/31/25 15:56: POC Glucose 275 H 05/31/25 16:30: POC Glucose 276 H 05/31/25 22:07: POC Glucose 270 H 06/01/25 05:31: WBC 5.4, RBC 3.33 L, Hgb 9.4 L, Hct 31.1 L, MCV 93.4, MCH 28.2, MCHC 30.2 L, RDW Std Deviation 48.6 H, RDW Coeff of Iron 14.6, Plt Count 202, MPV10.0, Sodium 131 L, Potassium 4.5, Chloride 93 L, Carbon Dioxide 19.7 L, Anion Gap 18 H, BUN 70 H, Creatinine 4.58 H, Estim Creat Clear Calc 9.03 L*, Est GFR (MDRD) Non-Af 10 L, BUN/Creatinine Ratio 15.2, Glucose 255 H, Hemoglobin A1c 5.9H, Calcium 8.3 06/01/25 06:25: POC Glucose 233 H 06/01/25 13:03: POC Glucose 274 H Microbiology: Microbiology 05/30/25 16:06 Mucosa - Nasopharyngeal Coronavirus COVID-19 PCR - Final 05/30/25 16:06 Mucosa - Nasopharyngeal Respiratory Panel (PCR) - Final D/C Instructions Discharge Activity: Return to Normal Activity Cleanse incision/area with: Keep Dressing Clean & Dry DC O2, CPAP, BIPAP Needs Home O2 Discharge instructions: Yes Type of respiratory needs?: Oxygen Oxygen frequency: Continuous Continuous oxygen liters per minute: 3 DC home with Oxygen: Yes Home O2 MD Review: I have reviewed the oxygen testing, and the patient qualifies for home oxygen equipment and portability. The patient is mobile in the home and the community. Meaningful Use Info Meaningful Use Meaningful Use Diagnoses (Choose all that apply): None applicable Discharge Plan Admission Admit Date/Time: 05/28/25 00:21 Primary Reason for Your Visit: Shortness of breath Attending Provider: Stacy Huerta Primary Care Provider: Bird Lujan Consulting Providers: Christy Huerta; Favian Nicholas; Brielle Turner; Favian Sinclair;Khai Bullard Discharge Orders/Prescriptions Prescriptions: Continued aspirin 81 mg tablet,delayed release (DR/EC) 81 mg PO DAILY oxygen See Rx Instructions NASAL .COMPLEX Rx Instructions: 3L NASALLY; 3 l Trelegy Ellipta 200-62.5-25 mcg blister with device 1 inh inhalation DAILY Qty: 3 3RF simvastatin 40 MG tablet 40 mg PO QHS albuterol sulfate 2.5 MG/3 ML solution for nebulization 2.5 mg INHALATION Q2H PRN PRN (Reason: dyspnea, wheezing) Qty: 1 0RF amlodipine [Norvasc] 10 mg tablet 10 mg PO DAILY 30 Days Qty: 30 0RF sevelamer carbonate 800 mg tablet 800 mg PO TID PRN (Reason: To lower Phosphorus) buspirone 7.5 mg tablet 7.5 mg PO DAILY Patient Comments: PT ONLY WANTS TO TAKE ONCE PER DAY cefdinir 300 mg capsule 300 mg PO BID 5 Days Qty: 10 0RF pseudoephedrine-guaifenesin [Mucinex D] 60-600 mg tablet extended release 12 hr 1 tab PO BID Qty: 14 0RF potassium chloride 20 mEq tablet,ER particles/crystals 20 meq PO BID calcitriol 0.5 mcg capsule 0.5 mcg PO DAILY ondansetron 4 mg tablet,disintegrating 4 mg PO Q8H PRN PRN (Reason: Nausea) Qty: 10 0RF ipratropium-albuterol 0.5 mg-3 mg(2.5 mg base)/3 mL solution for nebulization 3 ml inhalation Q4H PRN PRN (Reason: SOB &/OR WHEEZING) Qty: 180 6RF Prolia 60 mg/mL syringe 60 mg subcut [id number] Qty: 1 1RF Patient Comments: Next injection is 01/06/2025 clopidogrel 75 mg tablet 75 mg PO DAILY Qty: 90 3RF nitroglycerin 0.4 mg tablet, sublingual 0.4 mg SUBLINGUAL Q5-15M PRN (Reason: chest pain) Qty: 25 44RF Rx Instructions: until response; do not exceed 3 doses per episode metoprolol tartrate 50 mg tablet 50 mg PO BID Qty: 180 3RF (DME) FreeStyle Eileen 2 Plus Sensor [...] Rx Instructions: 1 transmitter q 90 days roflumilast [Daliresp] 500 mcg tablet 500 mcg PO DAILY Qty: 30 11RF Referrals / Follow Up: Christy Huerta DO [Med Staff - Consulting] - See Referral Note (As directed by Dr. Huerta) Bird Lujan MD [Primary Care Provider] - In 1 Week Favian Sinclair MD [Med Staff - Active Staff] - Within 1 Week Disposition Disposition (needs filled in before D/C Order can be placed): Home, Self Care Charges/Coding Visit Charges Inpatient E&M: 78461 Disch Hosp >30min 06/01/25 1512 <Electronically signed by Stacy Huerta DO> Cosigner Signature (if applicable): CC: Dr. Christy Huerta DO; Dr. Bird Lujan MD; Dr. Favian Sinclair MD; Dr.Kathryn Bradley DO~ Signed [facility] Work Phone: 1(316) 744-128307-30-2025 Hospital Discharge instructionsAdditional Instructions [facility]: [facility] 1(665) 500-714707-29-2025 Progress note Author Favian Sinclair [facility] Note Date/Time May 31, 2025 6:15 pm [facility] Medical Records Department [address] [place] [address] Progress Note - Surgery 05/31/25 181 MR#: [id number] Acct: [id number] Name: SANDY DENG Rep #:[id number] : 1960 64 From: Favian Sinclair MD PCP: Dr. Bird Lujan MD Status :ADM IN Location: [place] [address] Subjective Subjective Feeling better today, much more alert. Did not attempt HD today since successfulyesterday Objective Data Objective Data A&O x 3, NAD RRR Resp non labored +thrill adjacent to AC fossa, diminished more cephalad by mid upper arm Vital Signs: Vital Signs Temp Pulse Resp BP Pulse Ox O2 Del Method O2 Flow Rate 97.1 F L 62 20 H 124/42 H 95 Nasal Cannula 2 05/31/25 17:00 05/31/25 17:00 05/31/25 17:00 05/31/25 17:00 05/31/25 17:00 05/31/25 17:00 05/31/25 17:00 Oxygen Flow Rate (L/min) 2 Oxygen Delivery Method Nasal Cannula Weight: 100 lb 15.547 oz Body Mass Index (BMI) 16.2 Intake & Output: Intake and Output for Last 24 Hours 05/29/25 05/30/25 05/31/25 23:59 23:59 23:59 Intake Total 1070 / 1070 480 / 480 Output Total 2780 / 2780 Balance 1070 / 1070 -2780 / -2780 480 / 480 Medical Nutrition Assessment Dietitian: Malnutrition Criteria Met Start: 05/30/25 11:40 Freq: Status: Active Protocol: Document 05/30/25 11:41 RMA (Rec: 05/30/25 11:41 RMA [id number]) Nutrition Malnutrition Evidence of Yes Malnutrition Exists Malnutrition ( Chronic moderate): Evidenced By Suboptimal Energy Intake (Moderate),Physical Changes ( Moderate) Clinical Problem Chronic Disease or Condition Related Malnutrition Etiology moderate pro-korey malnutrition in the context of chronic disease related to chronic kidney disease, inadequate oral/energy intake and underweight status Signs/Symptoms as evidenced by BMI 17.0, PO meeting less than 75% estimated nutrition needs and muscle wasting/fat depletion in the clavicle, arms and legs; fluid weight masking muscle weight loss Status Active Problem Altered Nutrient-Related Laboratory Values Etiology (BUN, creatinine and GFR) related to ESRD/CKD Signs/Symptoms as evidenced by BUN level of 55, creatinine level of 4. 05 and GFR of 12. Status Active Problem Recommendation Dietitian Recommend resume PO with 2000 calorie/consistent Recommendations/ carbohydrate; Renal diet. Changes Pt dislikes PO Nepro; but agrees to trying some Beneprotein for tolerance. Lab / Micro Data 05/31/25 04:48 05/31/25 04:48 Labs: Laboratory Results - last 24 hr 05/30/25 17:18: POC Glucose 187 H 05/30/25 18:45: Urine Color Straw, Urine Clarity Clear, Urine pH 6.0, Ur Specific [place] 1.020, Urine Protein 500 H, Urine Glucose (UA) 100 H, Urine Ketones Negative, Urine Occult Blood 25 H, Urine Nitrite Negative, Urine Bilirubin Negative, Urine Urobilinogen Normal, Ur Leukocyte Esterase 25 H, UrineRBC 0-5 SEEN, Urine WBC 0- 5 SEEN, Ur Squamous Epith Cells 0-5 SEEN, Urine Bacteria 0 SEEN, Urine Mucus 0 SEEN 05/30/25 22:03: POC Glucose 264 H 05/31/25 04:48: WBC 4.6, RBC 3.29 L, Hgb 9.4 L, Hct 31.6 L, MCV 96.0, MCH 28.6, MCHC 29.7 L, RDW Std Deviation 52.3 H, RDW Coeff of Iron 15.1 H, Plt Count 169, MPV 9.1, Immature Gran % (Auto) 0.700, Neut % (Auto) 69.9, Lymph % (Auto) 15.5 L, Lynn % (Auto) 9.6, Eos % (Auto) 3.9, Baso % (Auto) 0.4, Absolute Neuts (auto) 3.2, Absolute Lymphs (auto) 0.71 L, Nucleated RBC % 0, Sodium 133, Potassium 5.1, Chloride 95 L, Carbon Dioxide 22.1, Anion Gap 16 H, BUN 54 H, Creatinine 3.48 H, Estim Creat Clear Calc 11.65 L, Est GFR (MDRD) Non-Af 14 L, BUN/Creatinine Ratio 15.5, Glucose 265 H, Calcium 8.5, Phosphorus 5.9 H, Magnesium 2.2 05/31/25 06:43: POC Glucose 226 H 05/31/25 15:56: POC Glucose 275 H 05/31/25 16:30: POC Glucose 276 H Micro: Microbiology 05/30/25 16:06 Mucosa - Nasopharyngeal Coronavirus COVID-19 PCR - Final 05/30/25 16:06 Mucosa - Nasopharyngeal Respiratory Panel (PCR) - Final Rhythm Strip Rhythm Strip: Sinus Rhythm Rate: 70 Ectopy: None Assessment & Plan Assessment/Plan (1) Arteriovenous fistula stenosis: QUALIFIERS: Encounter type: subsequent encounter Qualified Code(s): T82.858D - Stenosis of other vascular prosthetic devices, implants and grafts, subsequent encounter PLAN: -npo at midnight -fistulagram tomorrow -plan to use in afternoon if successful intervention then dc Charges/Coding Visit Charges Inpatient E&M: 81330 Subs Hosp L2 05/31/251814 <Electronically signed by Favian Sinclair MD> Cosigner Signature (if applicable): CC: ~ Signed [facility] Work Phone: 1(528) 311-985307-29-2025 Progress note Author Stacy Huerta [facility] Note Date/Time May 31, 2025 2:43 pm [facility] Medical Records Department [address] [place] [address] Progress Note - Hospitalist 05/31/25817 MR#: [id number] Acct: [id number] Name: SANDY DENG Frank Rep #:[id number] : 1960 64 From: Stacy Huerta DO PCP: Dr. Bird Lujan MD Status :ADM IN Location: [place] [address] 1 Reason for Visit Chief Complaint: Shortness of breath Subjective Subjective Patient states her breathing feels much better after dialysis yesterday and patient no longer requiring BiPAP which was initiated yesterday afternoon for CO2 retention and hypoxia. Per her she is back to her baseline. Awaiting fistulogram which is planned for later today or likely tomorrow. I didexplain that I would want her to run dialysis here prior to discharge to ensure that her fistula is working adequately. She and her voiced understanding. Objective Data Objective Data Vital Signs: Vital Signs Temp Pulse Resp BP Pulse Ox O2 Del Method O2 Flow Rate 97.9 F 77 18 124/48 H 95 Nasal Cannula 3 05/31/25 03:15 05/31/25 07:34 05/31/25 07:34 05/31/25 03:15 05/31/25 07:34 05/31/25 07:34 05/31/25 07:34 Oxygen Flow Rate (L/min) 3 Oxygen Delivery Method Nasal Cannula Weight: 45.8 kg Body Mass Index (BMI) 16.2 Intake & Output: Intake and Output for Last 24 Hours 05/29/25 05/30/25 05/31/25 23:59 23:59 23:59 Intake Total 1070 / 1070 Output Total 2780 / 2780 Balance 1070 / 1070 -2780 / -2780 Medical Nutrition Assessment Dietitian: Malnutrition Criteria Met Start: 05/30/25 11:40 Freq: Status: Active Protocol: Document 05/30/25 11:41 RMA (Rec: 05/30/25 11:41 RMA [id number]) Nutrition Malnutrition Evidence of Yes Malnutrition Exists Malnutrition ( Chronic moderate): Evidenced By Suboptimal Energy Intake (Moderate),Physical Changes ( Moderate) Clinical Problem Chronic Disease or Condition Related Malnutrition Etiology moderate pro-korey malnutrition in the context of chronic disease related to chronic kidney disease, inadequate oral/energy intake and underweight status Signs/Symptoms as evidenced by BMI 17.0, PO meeting less than 75% estimated nutrition needs and muscle wasting/fat depletion in the clavicle, arms and legs; fluid weight masking muscle weight loss Status Active Problem Altered Nutrient-Related Laboratory Values Etiology (BUN, creatinine and GFR) related to ESRD/CKD Signs/Symptoms as evidenced by BUN level of 55, creatinine level of 4. 05 and GFR of 12. Status Active Problem Recommendation Dietitian Recommend resume PO with 2000 calorie/consistent Recommendations/ carbohydrate; Renal diet. Changes Pt dislikes PO Nepro; but agrees to trying some Beneprotein for tolerance. Lab / Micro Data 05/31/25 04:48 05/31/25 04:48 Labs: Laboratory Results - last 24 hr 05/30/25 05:05: [place] > [address]65 H 05/30/25 09:16: POC Glucose 123 H 05/30/25 12:28: POC Glucose 134 H 05/30/25 15:45: C-React Prot Ext Range 53.70 H, NT pro BNP II Cancelled 05/30/25 15:46: ESR 22 05/30/25 17:18: POC Glucose 187 H 05/30/25 18:45: Urine Color Straw, Urine Clarity Clear, Urine pH 6.0, Ur Specific [place] 1.020, Urine Protein 500 H, Urine Glucose (UA) 100 H, Urine Ketones Negative, Urine Occult Blood 25 H, Urine Nitrite Negative, Urine Bilirubin Negative, Urine Urobilinogen Normal, Ur Leukocyte Esterase 25 H, UrineRBC 0-5 SEEN, Urine WBC 0- 5 SEEN, Ur Squamous Epith Cells 0-5 SEEN, Urine Bacteria 0 SEEN, Urine Mucus 0 SEEN 05/30/25 22:03: POC Glucose 264 H 05/31/25 04:48: WBC 4.6, RBC 3.29 L, Hgb 9.4 L, Hct 31.6 L, MCV 96.0, MCH 28.6, MCHC 29.7 L, RDW Std Deviation 52.3 H, RDW Coeff of Iron 15.1 H, Plt Count 169, MPV 9.1, Immature Gran % (Auto) 0.700, Neut % (Auto) 69.9, Lymph % (Auto) 15.5 L, Lynn % (Auto) 9.6, Eos % (Auto) 3.9, Baso % (Auto) 0.4, Absolute Neuts (auto) 3.2, Absolute Lymphs (auto) 0.71 L, Nucleated RBC % 0, Sodium 133, Potassium 5.1, Chloride 95 L, Carbon Dioxide 22.1, Anion Gap 16 H, BUN 54 H, Creatinine 3.48 H, Estim Creat Clear Calc 11.65 L, Est GFR (MDRD) Non-Af 14 L, BUN/Creatinine Ratio 15.5, Glucose 265 H, Calcium 8.5, Phosphorus 5.9 H, Magnesium 2.2 Micro: Microbiology 05/30/25 16:06 Mucosa - Nasopharyngeal Coronavirus COVID-19 PCR - Final 05/30/25 16:06 Mucosa - Nasopharyngeal Respiratory Panel (PCR) - Final ABG Data ABG results: ABG 05/30/25 05/30/25 14:24 16:19 Specimen Type ART ART Sample Site Not entered Not entered pH 7.24 L 7.31 L Bicarbonate Actual 27.9 H 30.2 H Total CO2 30 32 Base Excess 0 4 H O2 Saturation 93 L 94 L O2 % 3.0 7.0 ABG pCO2 65.8 H 60.3 H ABG pO2 83 80 O2 Delivery Device Not entered Not entered Vent Mode Not entered Not entered Radiography Diagnostic Testing: Radiology Impression A/V Fistula Ultrasound 05/28/25 15:23 Interpretation Summary Right upper arm fistula patent with >50% stenosis proximal. Otherwise adequate caliber/depth. Adequate flow volumes Ordering Physician: Khai Bullard Referring Physician: Bird Lujan Performed By: Abdulkadir Schaefer RVT Chest X-Ray 05/30/25 15:20 IMPRESSION: Increased right basilar consolidation, likely pneumonia. Moderate emphysema. Reading Location: [facility] Rhythm Strip Rhythm Strip: Sinus Rhythm Rate: 70 Ectopy: None Physical Exam Const alert, oriented x3 and no apparent distress; Negative for average body habitus, healthy appearing or well nourished Constitutional Narrative: Thin, upper middle-aged, white female, who appears older than stated age, sitting up in bed, watching television, spouse at bedside, appears comfortable and nontoxic, on her baseline oxygen at 2 L HEENT normocephalic, head/scalp atraumatic and moist oral mucous membranes HEENT Narrative: No thrush Neck Neck Narrative: Positive JVD Resp normal respiratory effort, no retractions, no use of accessory muscles and clearto auscultation bilaterally Resp Narrative: Diffusely diminished but clear Auscultation: Negative for crackles, rhonchi or wheezes Cardio regular rate, regular rhythm, S1 normal heart sound, S2 normal heart sound, no murmurs, no rub, no gallops and no clicks GI normal to inspection, nondistended, normoactive bowel sounds, soft to palpation and non-tender GI Narrative: Scaphoid abdomen Extremity no clubbing, cyanosis or edema Extremity Narrative: Right upper extremity fistula which has a thrill bruit and thrill, currently accessed for dialysis, decreased lean muscle mass Neuro moves all extremities and no focal motor deficits Neuro Narrative: Markedly hard of hearing Speech: speech normal Psych affect normal Psych Narrative: Eye contact is good, patient interacts appropriately, affect is slightly flat but appropriate for current situation Mood & Affect: anxious Assessment & Plan Assessment/Plan (1) Cachexia: (2) Dialysis AV fistula malfunction: (3) Elevated troponin I level: (4) End stage renal disease: (5) Dyspnea: PLAN: Plan Malfunctioning dialysis access - Fistula does show stenosis and patient will be taken for intervention likely tomorrow 06/01/2025 - patient was able to be run but had pain with higher flows - Will want to run dialysis here prior to discharge as she is home dialysis and want to ensure she does not have any issues after fistulogram has been performed Acute on chronic hypoxic and hypercapnic respiratory failure/COPD -Suspect hypercapnia was related to low-dose Ativan increased work of breathing -Avoid any sedating medications -Patient is now weaned off BiPAP and back to her baseline oxygen requirement so acute issue has resolved with intervention yesterday - Continue home inhalers - Patient is on 2 to 3 L at baseline chronically and currently on 2 L with oxygen saturations at 99% - Will check ambulatory pulse ox prior to discharge - Blood cultures are pending - Respiratory viral panel is negative - COVID is negative Elevated troponin - Secondary to demand ischemia with acute hypoxia related to volume overload andin the setting of CKD with decreased clearance - No further workup at this time Volume overloaded/shortness of breath - Secondary to problematic fistula - Resolved with fluid removal - Ongoing dialysis per nephrology - Patient is on her baseline oxygen Cachexia - Does not meet criteria for severe or moderate malnutrition - Patient is underweight with a BMI of 16.3 - Continue supplements - Dietitian is following CAD/essential hypertension/hyperlipidemia - Continue to hold Plavix and aspirin until vascular interventions are completedthen restart - continue home statin - Continue home metoprolol - Continue home amlodipine ESRD - 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 - HD per nephrology Chronic anemia secondary to renal disease - Hemoglobin remains stable DM-2 - Continue home insulin pump - Continue outpatient follow-up after discharge with endocrinology - Accu-Cheks as ordered DVT prophylaxis - Continue subcu heparin twice daily CODE STATUS - Full code Charges/Coding Visit Charges Inpatient E&M: 36261 Subs Hosp L2 05/31/25 1446 <Electronically signed by Stacy Huerta DO> Cosigner Signature (if applicable): CC: ~ Signed [facility] Work Phone: 1(438) 517-382107-29-2025 Progress note Author Christy Huerta [facility] Note Date/Time May 31, 2025 7:11 am [facility] Medical Records Department [address] [place] [address] Progress Note - Nephrology 05/30/25 1101 MR#: [id number] Acct: [id number] Name: SANDY DENG Rep #:[id number] : 1960 64 From: Christy Wright PCP: Dr. Bird Lujan MD Status :ADM IN Location: [place] [address] Subjective Subjective seen on dialysis. Tolerating fluid removal 2L so far. Pain with blood flow at 300cc/min. Tolerating better with 250 blood flow. Will need evaluation of AVF Objective Data Objective Data Vital Signs: Vital Signs Temp Pulse Resp BP Pulse Ox O2 Del Method O2 Flow Rate 97 F L 70 16 149/60 H 98 Nasal Cannula 2 05/30/25 08:10 05/30/25 10:30 05/30/25 10:23 05/30/25 10:30 05/30/25 09:22 05/30/25 09:22 05/30/25 09:22 Oxygen Flow Rate (L/min) 2 Oxygen Delivery Method Nasal Cannula Weight: 47.7 kg Body Mass Index (BMI) 16.9 Intake & Output: Intake and Output for Last 24 Hours 05/28/25 05/29/25 05/30/25 23:59 23:59 23:59 Intake Total 715 / 835 1070 / 1070 Balance 715 / 835 1070 / 1070 Lab / Micro Data 05/30/25 05:05 05/30/25 05:05 Labs: Laboratory Results - last 24 hr 05/29/25 11:35: POC Glucose 96 05/29/25 15:07: POC Glucose 131 H 05/29/25 16:42: POC Glucose 146 H 05/29/25 21:25: POC Glucose 195 H 05/29/25 23:06: POC Glucose 205 H 05/30/25 02:07: POC Glucose 167 H 05/30/25 05:05: WBC 5.8, RBC 3.31 L, Hgb 9.2 L, Hct 30.9 L, MCV 93.4, MCH 27.8, MCHC 29.8 L, RDW Std Deviation 50.5 H, RDW Coeff of Iron 15.1 H, Plt Count 207, MPV 9.8, Sodium 140, Potassium 4.8, Chloride 102, Carbon Dioxide 26.9, Anion Gap11, BUN 71 H, Creatinine 4.71 H, Estim Creat Clear Calc 8.97 L*, Est GFR (MDRD) Non-Af 10 L, BUN/Creatinine Ratio 15.0, Glucose 203 H, Calcium 8.7, Phosphorus 4.1, Albumin 3.5 05/30/25 06:09: POC Glucose 206 H 05/30/25 09:16: POC Glucose 123 H Rhythm Strip Rhythm Strip: Sinus Rhythm Rate: 70 Ectopy: None Physical Exam Const alert and oriented x3 Resp clear to auscultation bilaterally Resp Narrative: diminished GI non-tender and non-distended Auscultation: normoactive bowel sounds Palpation: soft Extremity no clubbing, cyanosis or edema General Extremity: AV fistula Assessment & Plan Assessment/Plan (1) ESRD (end stage renal disease) on dialysis: PLAN: due to diabetes on home hemodialysis 4x/wk. Last dialysis Friday. Difficulty with access use Friday and Friday Currently on dialysis with 16g needles. Pain with blood flow at 300, dropped to 250 blood flow. (2) Dialysis AV fistula malfunction: PLAN: evaluate for stenosis (3) Intermittent chest pain: (4) Dyspnea: PLAN: oxygenation stable (5) Essential (primary) hypertension: (6) Chronic obstructive pulmonary disease: QUALIFIERS: COPD type: unspecified COPD Qualified Code(s): J44.9 - Chronic obstructive pulmonary disease, unspecified PLAN: hx tobacco use (7) DM type 1 (diabetes mellitus, type 1): QUALIFIERS: Diabetes mellitus complication status: with kidney complications Diabetes mellitus complication detail: with chronic kidney disease Chronic kidney disease stage: stage 4 (severe) Qualified Code(s): E10.22 - Type 1 diabetes mellitus with diabetic chronic kidney disease; N18.4 - Chronic kidney disease, stage 4 (severe) (8) Lung nodule, multiple: (9) Atherosclerosis of coronary artery of [place] heart without angina pectoris: QUALIFIERS: Coronary Disease-Associated Artery/Lesion type: nativeartery Qualified Code(s): I25.10 - Atherosclerotic heart disease of [place] coronary artery without angina pectoris (10) Hypertension: QUALIFIERS: Hypertension type: unspecified Qualified Code(s): I10- Essential (primary) hypertension 05/31/25 0711 <Electronically signed by Christy Huerta DO> Cosigner Signature (if applicable): CC: ~ Signed [facility] Work Phone: [phone]) 563-749307-28-2025 Consult note Author Favian Sinclair [facility] Note Date/Time May 30, 2025 4:44 pm [facility] Medical Records Department [address] [place] [address] Consultation - Surgical 05/30/25 1637 MR#: [id number] Acct: [id number] Name: SANDY DENG Rep #:[id number] : 1960 64 From: Favian Sinclair MD PCP: Dr. Bird Lujan MD Status :ADM IN Location: [place] [address] Assessment & Plan Assessment/Plan (1) Arteriovenous fistula stenosis: QUALIFIERS: Encounter type: initial encounter Qualified Code(s): T82.858A - Stenosis of other vascular prosthetic devices, implants and grafts, initial encounter PLAN: - Duplex obtained today reveals stenosis in the mid fistula with otherwisenormal caliber and normal flow proximal and distal - Plan for fistulogram with intervention 06/01 - Okay to continue use of fistula for dialysis tomorrow HPI Consult Data Date of Consult: 05/30/25 HPI Narrative HPI Narrative: SANDY DENG, is a 64 F who presents with shortness of breath and presumed CHF exacerbation. She has history of end-stage renal disease currently on dialysis via right upper arm cephalic fistula which had been functioning well until Friday when approximately 5 minutes after beginning the session she developed discomfort cephalad to the venous return needle and had to abort her session. She presented over the weekend and efforts to perform inpatient dialysis were unsuccessful at access. This morning they were able to access thefistula however they also had pain at the venous return site and had to run at the lower rate. There is no evidence of hematoma or infiltration on physical exam. She was able to successfully complete her dialysis session today at the lower rate. The patient had a sedative prior to my evaluation she is very drowsy so the majority of the history is obtained from her . [facility] Medical History Chronic hypoxic respiratory failure On home oxygen therapy Wears hearing aid [...] nodule, solitary Fissure in skin of foot Carlotta's sign present Tobacco abuse CKD (chronic kidney [...] Anxiety Depression Atherosclerosis of coronary artery of [place] heart without angina pectoris NSTEMI (non-ST elevated [...] denosumab 60 mg/mL subcutaneous 60 mg subcut [id number] bone health 06/10/24 07/09/24 Rx syringe (Prolia) #1 mL clopidogrel 75 mg tablet 75 mg PO DAILY anti platelet #90 07/26/24 01/03/25 Rx tabs nitroglycerin 0.4 mg sublingual 0.4 mg sublingual Q5-1 5M PRN chest 10/21/24 Unknown Rx tablet pain #25 tabs metoprolol tartrate 50 mg tablet 50 mg PO BID blood pr essure #180 11/11/24 01/03/25 Rx tabs amlodipine 10 mg tablet (Norvasc) 10 mg PO DAILY blood pressure 30 11/20/24 01/03/25 Rx days #30 tabs buspirone 7.5 mg tablet 7.5 mg PO DAILY Antianxiety 12/14/24 01/03/25 History sevelamer carbonate 800 mg tablet 800 mg PO TID To low er Phosphorus 12/14/24 01/03/25 History cefdinir 300 mg capsule 300 mg PO BID 5 days #10 cap s 01/06/25 Unknown Rx pseudoephedrine-guaifenesin ER 60 1 tab PO BID cold sy mptoms #14 tabs 01/06/25 Unknown Rx mg-600 mg tablet,extend release 12hr (Mucinex D) blood-glucose sensor (FreeStyle #6 ea 02/09/25 Unknown [...] infusion . continuous U-100 Insulin) #54 mL ondansetron 4 mg disintegrating 4 mg PO Q8H PRN PRN Na usea #10 tabs 05/08/25 Unknown Rx tablet roflumilast 500 mcg tablet 500 mcg PO DAILY breathing #30 tabs 05/11/25 Unknown Rx (Daliresp) fluticasone fur. 200 mcg-umeclid 1 inh inhalation ALEJANDRA Y breathing 05/18/25 Unknown Rx 62.5 mcg-vilant 25 mcg #3 ea inhalat.powder (Trelegy Ellipta) Allergy/AdvReac Type Severity Reaction Status Date / Time No Known Allergies Allergy Verified 05/27/25 19:11 Family History Mother Heart disease COPD (chronic [...] you feel safe at home: Yes ROS Review of Systems ROS Unobtainable: due to mental status Physical Exam Const Constitutional Narrative: Awakens briefly to verbal General Appearance: cooperative, ill appearing Positive for chronically and frail; Negative for combative or lethargic Orientation / Consciousness: lethargic Exam Limitations: altered mental status HEENT Head and Scalp: normocephalic and atraumatic Neck full ROM General: trachea midline Resp normal respiratory effort, no use of accessory muscles and clear to auscultationbilaterally Effort and Inspection: Negative for labored, stridor or audible wheezes Cardio regular rate and regular rhythm Cardio Narrative: +thrill RUE Peripheral Pulses: brachial pulses present and radial pulses present Back/Spine Cervical Spine: cervical ROM normal Extremity full ROM, normal capillary refill and no clubbing, cyanosis or edema Skin no rashes or lesions noted and no wounds Neuro no focal motor deficits Medical Records Data Medical Nutrition Assessment Dietitian: Malnutrition Criteria Met Start: 05/30/25 11:40 Freq: Status: Active Protocol: Document 05/30/25 11:41 RMA (Rec: 05/30/25 11:41 RMA [id number]) Nutrition Malnutrition Evidence of Yes Malnutrition Exists Malnutrition ( Chronic moderate): Evidenced By Suboptimal Energy Intake (Moderate),Physical Changes ( Moderate) Clinical Problem Chronic Disease or Condition Related Malnutrition Etiology moderate pro-korey malnutrition in the context of chronic disease related to chronic kidney disease, inadequate oral/energy intake and underweight status Signs/Symptoms as evidenced by BMI 17.0, PO meeting less than 75% estimated nutrition needs and muscle wasting/fat depletion in the clavicle, arms and legs; fluid weight masking muscle weight loss Status Active Problem Altered Nutrient-Related Laboratory Values Etiology (BUN, creatinine and GFR) related to ESRD/CKD Signs/Symptoms as evidenced by BUN level of 55, creatinine level of 4. 05 and GFR of 12. Status Active Problem Recommendation Dietitian Recommend resume PO with 2000 calorie/consistent Recommendations/ carbohydrate; Renal diet. Changes Pt dislikes PO Nepro; but agrees to trying some Beneprotein for tolerance. Lab / Micro Data 05/30/25 05:05 05/30/25 05:05 Labs: Laboratory Results - last 24 hr 05/29/25 16:42: POC Glucose 146 H 05/29/25 21:25: POC Glucose 195 H 05/29/25 23:06: POC Glucose 205 H 05/30/25 02:07: POC Glucose 167 H 05/30/25 05:05: WBC 5.8, RBC 3.31 L, Hgb 9.2 L, Hct 30.9 L, MCV 93.4, MCH 27.8, MCHC 29.8 L, RDW Std Deviation 50.5 H, RDW Coeff of Iron 15.1 H, Plt Count 207, MPV 9.8, Sodium 140, Potassium 4.8, Chloride 102, Carbon Dioxide 26.9, Anion Gap11, BUN 71 H, Creatinine 4.71 H, Estim Creat Clear Calc 8.97 L*, Est GFR (MDRD) Non-Af 10 L, BUN/Creatinine Ratio 15.0, Glucose 203 H, Calcium 8.7, Phosphorus 4.1, [place] > [address] H, Albumin 3.5 05/30/25 06:09: POC Glucose 206 H 05/30/25 09:16: POC Glucose 123 H 05/30/25 12:28: POC Glucose 134 H 05/30/25 15:45: C-React Prot Ext Range 53.70 H, NT pro BNP II Cancelled 05/30/25 15:46: ESR 22 ABG Data ABG results: ABG 05/30/25 05/30/25 14:24 16:19 Specimen Type ART ART Sample Site Not entered Not entered pH 7.24 L 7.31 L Bicarbonate Actual 27.9 H 30.2 H Total CO2 30 32 Base Excess 0 4 H O2 Saturation 93 L 94 L O2 % 3.0 7.0 ABG pCO2 65.8 H 60.3 H ABG pO2 83 80 O2 Delivery Device Not entered Not entered Vent Mode Not entered Not entered Rhythm Strip Rhythm Strip: Sinus Rhythm Rate: 70 Ectopy: None Imaging Radiology Impression Chest X-Ray 05/30/25 15:20 IMPRESSION: Increased right basilar consolidation, likely pneumonia. Moderate emphysema. Reading Location: [id number] Charges/Coding Visit Charges Inpatient E&M: 19324 Init Hosp L2 05/30/25 1644 <Electronically signed by Favian Sinclair MD> Cosigner Signature (if applicable): CC: Dr. Bird Lujan MD~ Signed [facility] Work Phone: 1(414) 550-473107-28-2025 Progress note Author Stacy Huerta [facility] Note Date/Time May 30, 2025 3:48 pm [facility] Medical Records Department [address] [place] [address] Progress Note - Hospitalist 05/30/25 1546 MR#: [id number] Acct: [id number] Name: CALEBSANDY A Rep #:[id number] : 1960 64 From: Stacy Huerta DO PCP: Dr. Bird Lujan MD Status :ADM IN Location: [place] [address] Hospitalist Note I was called due to altered mental status and confusion. Patient's reported she gets like this when her she is retaining CO2. We obtained an ABG and this showed a pH of 7.24 with a PCO2 of 65.8 and a pO2 of 83 on 3 L nasal cannula. She was transitioned to her home CPAP but remained hypoxic so she was transitioned to our BiPAP units. Repeat blood gas will be performed. Check respiratory viral panel. Patient is already on as needed scheduled aerosols. Will obtain blood cultures. Sed rate and CRP will be obtained and a UA will be obtained to ensure this is not related to any type of underlying infection. Hold off on empiric antibiotics with a normal white count today. Chest x-ray ispending. Patient did have dialysis today with removal of 2660 cc. 05/30/25 1548 <Electronically signed by Stacy Huerta DO> Cosigner Signature (if applicable): CC: ~ Signed [facility] Work Phone: [phone] Radiology Diagnostic study [facility]07-28-2025 Progress note Author Stacy Huerta [facility] Note Date/Time May 30, 2025 1:42 pm [facility] Medical Records Department [address] [place] [address] Progress Note - Hospitalist 05/30/25 0824 MR#: [id number] Acct: [id number] Name: SANDY DENG Rep #:[id number] : 1960 64 From: Stacy Huerta DO PCP: Dr. Bird Lujan MD Status :ADM IN Location: [place] [address]- 1 Reason for Visit Chief Complaint: Shortness of breath Subjective Subjective Patient is currently on dialysis with good flow however she has pain with higherflows. Discussed with Dr. Christy Huerta and plan is for ultrasound with Dr. Sinclair's involvement for potential fistulogram. Patient states her shortness ofbreath is improving as she is run on dialysis today but she is still short of breath and appears mildly short of breath at rest with conversation. Objective Data Objective Data Vital Signs: Vital Signs Temp Pulse Resp BP Pulse Ox O2 Del Method O2 Flow Rate 97 F L 70 12 159/66 H 100 Nasal Cannula 2 05/30/25 08:10 05/30/25 08:10 05/30/25 08:10 05/30/25 08:10 05/30/25 08:10 05/30/25 08:10 05/30/25 08:10 Oxygen Flow Rate (L/min) 2 Oxygen Delivery Method Nasal Cannula Weight: 47.7 kg Body Mass Index (BMI) 16.9 Intake & Output: Intake and Output for Last 24 Hours 05/28/25 05/29/25 05/30/25 23:59 23:59 23:59 Intake Total 715 / 835 1070 / 1070 Balance 715 / 835 1070 / 1070 Lab / Micro Data 05/30/25 05:05 05/30/25 05:05 Labs: Laboratory Results - last 24 hr 05/29/25 08:29: POC Glucose 94 05/29/25 10:11: POC Glucose 142 H 05/29/25 11:35: POC Glucose 96 05/29/25 15:07: POC Glucose 131 H 05/29/25 16:42: POC Glucose 146 H 05/29/25 21:25: POC Glucose 195 H 05/29/25 23:06: POC Glucose 205 H 05/30/25 02:07: POC Glucose 167 H 05/30/25 05:05: WBC 5.8, RBC 3.31 L, Hgb 9.2 L, Hct 30.9 L, MCV 93.4, MCH 27.8, MCHC 29.8 L, RDW Std Deviation 50.5 H, RDW Coeff of Iron 15.1 H, Plt Count 207, MPV 9.8, Sodium 140, Potassium 4.8, Chloride 102, Carbon Dioxide 26.9, Anion Gap11, BUN 71 H, Creatinine 4.71 H, Estim Creat Clear Calc 8.97 L*, Est GFR (MDRD) Non-Af 10 L, BUN/Creatinine Ratio 15.0, Glucose 203 H, Calcium 8.7, Phosphorus 4.1, Albumin 3.5 05/30/25 06:09: POC Glucose 206 H Rhythm Strip Rhythm Strip: Sinus Rhythm Rate: 70 Ectopy: None Physical Exam Const alert, oriented x3 and no apparent distress; Negative for average body habitus, healthy appearing or well nourished Constitutional Narrative: Thin, upper middle-aged, white female, who appears older than stated age, sitting up in bed, watching television, spouse at bedside, appears comfortable and nontoxic, currently on HD, HD nursing at bedside HEENT head/scalp atraumatic and moist oral mucous membranes Head and Scalp: normocephalic Resp normal respiratory effort, no retractions, no use of accessory muscles and No clear to auscultation bilaterally Resp Narrative: Diffusely diminished with inspiratory wheeze in the right base that clears with cough Auscultation: wheezes; Negative for crackles or rhonchi Cardio regular rate, regular rhythm, S1 normal heart sound, S2 normal heart sound, no murmurs, no rub, no gallops and no clicks GI normal to inspection, nondistended, normoactive bowel sounds, soft to palpation and non-tender GI Narrative: Scaphoid abdomen Extremity no clubbing, cyanosis or edema Extremity Narrative: Right upper extremity fistula which has a thrill bruit and thrill, currently accessed for dialysis, decreased lean muscle mass Skin Skin Narrative: Ecchymosis on right anterior chest area Neuro oriented x3, moves all extremities and no focal motor deficits Neuro Narrative: Markedly hard of hearing Speech: speech normal Psych Negative for affect normal Psych Narrative: Eye contact is good, patient interacts appropriately, affect is slightly flat but appropriate for current situation Assessment & Plan Assessment/Plan (1) Cachexia: (2) Dialysis AV fistula malfunction: (3) Elevated troponin I level: (4) End stage renal disease: (5) Dyspnea: PLAN: Plan Malfunctioning dialysis access - Fistula was able to be accessed today therefore tunneled dialysis catheter wascanceled - patient was able to be run but had pain with higher flows - Ultrasound is pending - Await vascular surgery input with regards to fistulogram Elevated troponin - Secondary to demand ischemia with acute hypoxia related to volume overload andin the setting of CKD with decreased clearance - No further workup at this time Volume overloaded/shortness of breath - Secondary to problematic fistula - Patient is feeling better with fluid removal today - Ongoing dialysis per nephrology - Patient is on her baseline oxygen Cachexia - Does not meet criteria for severe or moderate malnutrition - Patient is underweight with a BMI of 16.7 - Continue supplements - Dietitian is following CAD/essential hypertension/hyperlipidemia - Continue to hold Plavix and aspirin until vascular interventions are completedthen restart next-continue home statin - Continue home metoprolol - Continue home amlodipine ESRD - 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 - HD per nephrology Chronic anemia secondary to renal disease - Hemoglobin stable Chronic hypoxic respiratory failure/COPD - Continue home inhalers - Patient is on 2 to 3 L at baseline chronically - Remains on baseline oxygen at this time - Will check ambulatory pulse ox prior to discharge - Acute shortness of breath should improve with volume removal DM-2 - Continue home insulin pump - Continue outpatient follow-up after discharge with endocrinology - Accu-Cheks as ordered DVT prophylaxis - Continue subcu heparin twice daily CODE STATUS - Full code Charges/Coding Visit Charges Inpatient E&M: 22866 Subs Hosp L2 05/30/25 1342 <Electronically signed by Stacy Huerta DO> Cosigner Signature (if applicable): CC: ~ Signed [facility] Work Phone: 1(715) 571-121007-28-2025 Progress note Author Ana Rosa Romano [facility] Note Date/Time May 30, 2025 8:52 am [facility] Medical Records Department [address] [place] [address] Progress Note - Surgery 05/30/25 0817 MR#: [id number] Acct: [id number] Name: SANDY DENG Rep #:[id number] : 1960 64 From: Ana Rosa BHARDWAJ PA-C PCP: Dr. Bird Lujan MD Status :ADM IN Location: [place] [address] Subjective Subjective Patient evaluated resting comfortably in bed. She seems short of breath this morning. She has not had dialysis since last Wednesday. She states recently she had her chest catheter out [address] Sinclair created the right upper extremity fistula. Objective Data Objective Data Vital Signs: Vital Signs Temp Pulse Resp BP Pulse Ox O2 Del Method O2 Flow Rate 98 F 76 20 H 152/56 H 92 Nasal Cannula 2 05/30/25 03:20 05/30/25 03:20 05/30/25 03:20 05/30/25 03:20 05/30/25 03:20 05/30/25 03:20 05/30/25 03:20 Oxygen Flow Rate (L/min) 2 Oxygen Delivery Method Nasal Cannula Weight: 105 lb 2.568 oz Body Mass Index (BMI) 16.9 Intake & Output: Intake and Output for Last 24 Hours 05/28/25 05/29/25 05/30/25 23:59 23:59 23:59 Intake Total 715 / 835 1070 / 1070 Balance 715 / 835 1070 / 1070 Lab / Micro Data 05/30/25 05:05 05/30/25 05:05 Labs: Laboratory Results - last 24 hr 05/29/25 08:29: POC Glucose 94 05/29/25 10:11: POC Glucose 142 H 05/29/25 11:35: POC Glucose 96 05/29/25 15:07: POC Glucose 131 H 05/29/25 16:42: POC Glucose 146 H 05/29/25 21:25: POC Glucose 195 H 05/29/25 23:06: POC Glucose 205 H 05/30/25 02:07: POC Glucose 167 H 05/30/25 05:05: WBC 5.8, RBC 3.31 L, Hgb 9.2 L, Hct 30.9 L, MCV 93.4, MCH 27.8, MCHC 29.8 L, RDW Std Deviation 50.5 H, RDW Coeff of Iron 15.1 H, Plt Count 207, MPV 9.8, Sodium 140, Potassium 4.8, Chloride 102, Carbon Dioxide 26.9, Anion Gap11, BUN 71 H, Creatinine 4.71 H, Estim Creat Clear Calc 8.97 L*, Est GFR (MDRD) Non-Af 10 L, BUN/Creatinine Ratio 15.0, Glucose 203 H, Calcium 8.7, Phosphorus 4.1, Albumin 3.5 05/30/25 06:09: POC Glucose 206 H Rhythm Strip Rhythm Strip: Sinus Rhythm Rate: 70 Ectopy: None Physical Exam Chest Chest Narrative: Right chest with moderate amount of ecchymosis Extremity Extremity Narrative: Right upper extremity AV fistula- good pulse, bruit and thrill. Moderate amount of ecchymosis mid humerus at access sites Assessment & Plan Assessment/Plan (1) Dialysis AV fistula malfunction: (2) End stage renal disease: PLAN: Plan I am following this patient in conjunction with Dr. Turner. She will independently evaluate this patient. Labs reviewed Dialysis will plan to access the fistula and attempt to perform treatment this morning. If fistula is able to be accessed, we will plan to cancel tunneled dialysis catheter placement If unable to access, Dr. Turner will plan to place right chest possible left tunneled dialysis catheter today at approx 12:15 We will continue to monitor this patient Charges/Coding Visit Charges Inpatient E&M: 78411 Subs Hosp L2 05/30/25 0832 <Electronically signed by Ana Rosa BHARDWAJ PA-C> Cosigner Signature (if applicable): CC: ~ Signed ADDENDUM by STACY Romano on 05/30/25 at 0852 Addendum Received notification from Brenden, inpatient dialysis, he was able to access the patient's fistula and patient is able to complete dialysis treatment. Dr. Borrego see the patient for a possible elective fistulogram. Tunneled dialysis catheter placement procedure will be cancelled for today. We will sign off at this time. Please reach out to our service if needed in the future. Thank you 05/30/25 0852<Electronically signed by Ana Rosa BHARDWAJ PA-C> Cosigner Signature (if applicable): cc: ~* Signed [facility] Work Phone: 1(284) 675-174907-28-2025 Consult note Author Christy Huerta [facility] Note Date/Time May 30, 2025 8:00 am [facility] Medical Records Department [address] [place] [address] Consultation - Nephrology 05/28/25 1751 MR#: [id number] Acct: [id number] Name: SANDY DENG Rep #:[id number] : 1960 64 From: Christy Wright PCP: Dr. Bird Lujan MD Status :ADM IN Location: [place] [id number] Assessment & Plan Assessment/Plan (1) ESRD (end stage renal disease) on dialysis: PLAN: due to diabetes on home hemodialysis 4x/wk. Last dialysis Friday. Difficulty with access use Friday and Today. Will try Friday using AVF, otherwise will need tunneled catheter, fistulogram with vascular evaluation of AVF (2) Dialysis AV fistula malfunction: (3) Intermittent chest pain: (4) Dyspnea: PLAN: oxygenation stable (5) Essential (primary) hypertension: (6) Chronic obstructive pulmonary disease: QUALIFIERS: COPD type: unspecified COPD Qualified Code(s): J44.9 - Chronic obstructive pulmonary disease, unspecified PLAN: hx tobacco use (7) DM type 1 (diabetes mellitus, type 1): QUALIFIERS: Chronic kidney disease stage: stage 4 (severe) Diabetes mellitus complication detail: with chronic kidney disease Diabetes mellitus complication status: with kidney complications Qualified Code(s): E10.22 - Type 1 diabetes mellitus with diabetic chronic kidney disease; N18.4 - Chronic kidney disease, stage 4 (severe) (8) Lung nodule, multiple: (9) Atherosclerosis of coronary artery of [place] heart without angina pectoris: QUALIFIERS: Coronary Disease-Associated Artery/Lesion type: nativeartery Qualified Code(s): I25.10 - Atherosclerotic heart disease of [place] coronary artery without angina pectoris (10) Hypertension: QUALIFIERS: Hypertension type: unspecified Qualified Code(s): I10- Essential (primary) hypertension HPI Consult Data Date of Consult: 05/30/25 HPI Narrative Reason for Consultation: ESRD on home hemodialysis 4x/wk HPI Narrative: SANDY DENG, is a 64 F who presents with increased shortness of breath. Shehas ESRD on home hemodialysis, last treatment Friday. She could not receive her dialysis on Friday due to access issues. No push/pull of blood with needles after good flashback. She was unable to receive her dialysis today due to accessissues again. Dialysis nurse was not able to push/pull blood as well. Patient continues to have mild dyspnea with stable oxygenation on 2L NC. She has oliguria. Vascular surgeon notified of access issues. Tunneled dialysis catheterto be placed Friday if still have problems with access. [facility] Medical History On home oxygen therapy Wears [...] nodule, solitary Fissure in skin of foot Carlotta's sign present Tobacco abuse CKD (chronic kidney [...] Anxiety Depression Atherosclerosis of coronary artery of [place] heart without angina pectoris NSTEMI (non-ST elevated [...] denosumab 60 mg/mL subcutaneous 60 mg subcut [id number] bone health 06/10/24 07/09/24 Rx syringe (Prolia) #1 mL clopidogrel 75 mg tablet 75 mg PO DAILY anti platelet #90 07/26/24 01/03/25 Rx tabs nitroglycerin 0.4 mg sublingual 0.4 mg sublingual Q5-1 5M PRN chest 10/21/24 Unknown Rx tablet pain #25 tabs metoprolol tartrate 50 mg tablet 50 mg PO BID blood pr essure #180 11/11/24 01/03/25 Rx tabs amlodipine 10 mg tablet (Norvasc) 10 mg PO DAILY blood pressure 30 11/20/24 01/03/25 Rx days #30 tabs buspirone 7.5 mg tablet 7.5 mg PO DAILY Antianxiety 12/14/24 01/03/25 History sevelamer carbonate 800 mg tablet 800 mg PO TID To low er Phosphorus 12/14/24 01/03/25 History cefdinir 300 mg capsule 300 mg PO BID 5 days #10 cap s 01/06/25 Unknown Rx pseudoephedrine-guaifenesin ER 60 1 tab PO BID cold sy mptoms #14 tabs 01/06/25 Unknown Rx mg-600 mg tablet,extend release 12hr (Mucinex D) blood-glucose sensor (FreeStyle #6 ea 02/09/25 Unknown [...] infusion . continuous U-100 Insulin) #54 mL ondansetron 4 mg disintegrating 4 mg PO Q8H PRN PRN Na usea #10 tabs 05/08/25 Unknown Rx tablet roflumilast 500 mcg tablet 500 mcg PO DAILY breathing #30 tabs 05/11/25 Unknown Rx (Daliresp) fluticasone fur. 200 mcg-umeclid 1 inh inhalation ALEJANDRA Y breathing 05/18/25 Unknown Rx 62.5 mcg-vilant 25 mcg #3 ea inhalat.powder (Trelegy Ellipta) Allergy/AdvReac Type Severity Reaction Status Date / Time No Known Allergies Allergy Verified 05/27/25 19:11 Family History Mother Heart disease COPD (chronic [...] you feel safe at home: Yes ROS Constitutional Constitutional: Reports weakness; Denies chills or fever(s) ENT HEENT: Denies nasal congestion Cardiovascular Cardiovascular: Reports chest pain and dyspnea on exertion; Denies edema Respiratory/Chest Respiratory/Chest: Reports dyspnea on exertion, portable oxygen @ home and shortness of breath at rest; Denies wheezing Gastrointestinal Gastrointestinal: Reports anorexia; Denies abdominal pain, diarrhea, nausea or vomiting Genitourinary Genitourinary: Reports oliguria; Denies change in urinary stream Integumentary Integumentary: Denies rash Neurologic Neurologic: Reports weakness; Denies confusion or focal weakness Psychiatric Psychiatric: Reports anxiety and depression Hematologic/Lymphatic Hematologic/Lymphatic: Reports anemia, easy bleeding and easy bruising Physical Exam Const alert and oriented x3 General Appearance: anxious and frail Nutritional Appearance: thin Resp Auscultation: crackles bilateral base Cardio regular rate Cardio Narrative: murmur GI non-tender and non-distended Auscultation: normoactive bowel sounds Extremity no clubbing, cyanosis or edema Extremity Narrative: AVF with good thrill and bruit General Extremity: AV fistula Neuro moves all extremities and no focal motor deficits Motor Exam: tremor Psych cooperative Lab / Micro Data 05/30/25 05:05 05/30/25 05:05 Labs: Laboratory Results - last 24 hr 05/27/25 19:26: WBC 5.0, RBC 3.47 L, Hgb 9.8 L, Hct 32.2 L, MCV 92.8, MCH 28.2, MCHC 30.4 L, RDW Std Deviation 49.4 H, RDW Coeff of Iron 14.6, Plt Count 169, MPV11.4, Immature Gran % (Auto) 0.400, Neut % (Auto) 69.6, Lymph % (Auto) 16.0 L, Lynn % (Auto) 10.0, Eos % (Auto) 3.4, Baso % (Auto) 0.6, Absolute Neuts (auto) 3.5, Absolute Lymphs (auto) 0.80 L, Nucleated RBC % 0, Sodium Cancelled, Potassium Cancelled, Chloride Cancelled, Carbon Dioxide Cancelled, Anion Gap Cancelled, BUN Cancelled, Creatinine Cancelled, Estim Creat Clear Calc Cancelled, Est GFR (MDRD) Non-Af Cancelled, BUN/Creatinine Ratio Cancelled, Glucose Cancelled, Calcium Cancelled, Troponin T High Sens Cancelled 05/27/25 21:15: Sodium 142, Potassium 5.0, Chloride 108, Carbon Dioxide 24.1, Anion Gap 10, BUN 53 H, Creatinine 3.91 H, Estim Creat Clear Calc 10.71 L, Est GFR (MDRD) Non-Af 12 L, BUN/Creatinine Ratio 13.4, Glucose 109 H, Calcium 8.3, Troponin T High Sens 135 H* 05/27/25 23:04: Troponin T Hi Sens 2 Hr 133 H* 05/28/25 01:56: POC Glucose 156 H 05/28/25 05:30: WBC 3.8 L, RBC 3.49 L, Hgb 9.7 L, Hct 32.7 L, MCV 93.7, MCH 27.8, MCHC 29.7 L, RDW Std Deviation 48.7 H, RDW Coeff of Iron 14.5, Plt Count 142 L, MPV 10.4, Immature Gran % (Auto) 0.800, Neut % (Auto) 90.5 H, Lymph % (Auto) 5.5 L, Lynn % (Auto) 2.1, Eos % (Auto) 0.3, Baso % (Auto) 0.8, Absolute Neuts (auto) 3.5, Absolute Lymphs (auto) 0.21 L, Nucleated RBC % 0, Sodium 141, Potassium 4.8, Chloride 105, Carbon Dioxide 24.3, Anion Gap 12, BUN 55 H, Creatinine 4.05 H, Estim Creat Clear Calc 10.43 L, Est GFR (MDRD) Non-Af 12 L, BUN/Creatinine Ratio 13.6, Glucose 176 H, Calcium 8.3 05/28/25 12:05: POC Glucose 229 H Rhythm Strip Rhythm Strip: Sinus Rhythm Rate: 70 Ectopy: None Imaging Radiology Impression Chest X-Ray 05/27/25 19:50 IMPRESSION: Pulmonary findings as above. Reading Location: [facility] 05/30/25 0800 <Electronically signed by Christy Huerta DO> Cosigner Signature (if applicable): CC: Dr. Bird Lujan MD~ Signed [facility] Work Phone: 1(346) 117-602107-27-2025 Progress note Author [facility] Note Date/Time May 29, 2025 5:11 pm [facility] Medical Records Department [address] [place] [address] Progress Note - Hospitalist 05/29/25 1707 MR#: [id number] Acct: [id number] Name: SANDY DENG Rep #:[id number] : 1960 64 From: Khai Bullard DO PCP: Dr. Bird Lujan MD Status :ADM IN Location: [place] [id number] Reason for Visit Chief Complaint: Shortness of breath Subjective Subjective Patient was seen and examined today, she will undergo insertion of a tunneled dialysis catheter tomorrow, she will also be seen by vascular surgery. Patient remains on her home oxygen setting, creatinine today was 4.44 with a BUN of 69, potassium was slightly high at 5.3. Patient appears in no respiratory distress. Objective Data Objective Data Vital Signs: Vital Signs Temp Pulse Resp BP Pulse Ox O2 Del Method O2 Flow Rate 98.1 F 81 17 145/58 H 100 Nasal Cannula 2 05/29/25 15:00 05/29/25 15:17 05/29/25 15:17 05/29/25 15:00 05/29/25 15:00 05/29/25 15:00 05/29/25 15:00 Oxygen Flow Rate (L/min) 2 Oxygen Delivery Method Nasal Cannula Weight: 49.3 kg Body Mass Index (BMI) 17.5 Intake & Output: Intake and Output for Last 24 Hours 05/27/25 05/28/25 05/29/25 23:59 23:59 23:59 Intake Total 715 / 835 595 / 595 Balance 715 / 835 595 / 595 Lab / Micro Data 05/28/25 05:30 05/29/25 05:04 Labs: Laboratory Results - last 24 hr 05/28/25 19:04: POC Glucose 313 H 05/28/25 21:09: POC Glucose 334 H 05/29/25 05:04: Sodium 139, Potassium 5.3 H, Chloride 104, Carbon Dioxide 22.5, Anion Gap 12, BUN 69 H, Creatinine 4.44 H, Estim Creat Clear Calc 9.83 L*, Est GFR (MDRD) Non-Af 10 L, BUN/Creatinine Ratio 15.5, Glucose 164 H, Calcium 8.5 05/29/25 08:29: POC Glucose 94 05/29/25 10:11: POC Glucose 142 H 05/29/25 11:35: POC Glucose 96 05/29/25 15:07: POC Glucose 131 H 05/29/25 16:42: POC Glucose 146 H Rhythm Strip Rhythm Strip: Sinus Rhythm Rate: 70 Ectopy: None Physical Exam Const alert, oriented x3, no apparent distress and healthy appearing Constitutional Narrative: Patient appears older than her stated age General Appearance: cooperative, well kempt and well developed Orientation / Consciousness: awake, oriented to person, oriented to place and oriented to time HEENT normocephalic, head/scalp atraumatic and moist oral mucous membranes Eyes PERRL, EOMs intact bilaterally and conjunctivae normal Neck supple, no JVD and thyroid normal General: trachea midline Resp normal respiratory effort, no retractions and no use of accessory muscles Resp Narrative: Breath sounds are diminished bilaterally, there are inspiratory rales at the bases bilaterally Auscultation: rales bilateral base; Negative for rhonchi or wheezes Cardio regular rate, regular rhythm, S1 normal heart sound, S2 normal heart sound, no murmurs, no rub and no gallops GI normal to inspection, nondistended, normoactive bowel sounds, soft to palpation,non-tender and non-distended Extremity no clubbing, cyanosis or edema Skin no rashes or lesions noted General Skin Exam: no breakdown Neuro oriented x3, CN's II-XII intact bilaterally, moves all extremities, no focal motor deficits and no sensory deficits noted Sensorium / Orientation: awake and alert Speech: speech normal Psych affect normal Assessment & Plan Assessment/Plan (1) Dialysis AV fistula malfunction: PLAN: Plan 1. Fluid overload-secondary to nonfunctioning fistula for end-stage renal disease, patient's oxygen requirement appears stable at this time, she will undergo dialysis tomorrow after a tunneled dialysis catheter is placed #2 nonfunctioning fistula-patient will be evaluated by vascular surgery and havea duplex of the fistula tomorrow #3 chronic obstructive pulmonary disease-patient will remain on aerosol treatments, again I do not think she needs corticosteroid administration, I haveelected to keep her on Zithromax for now #4 coronary artery disease-patient's Plavix is being held at this time due to her catheter placement tomorrow #5 type 2 diabetes-patient's blood sugars will be monitored, I adjusted her insulin today due to low blood sugar readings. Patient is primarily going to betreated with sliding scale insulin for now #6 essential hypertension-patient will remain on her present medications #7 hyperlipidemia-patient is on a statin #8 chronic hypoxic respiratory failure secondary to COPD-again patient's oxygen requirement at rest for now is 2 L. This is her home oxygen setting. Total clinical time spent by myself addressing the patient's medical issues, reviewing all of her data, and collaborating with the patient's care team: 35 minutes Charges/Coding Visit Charges Inpatient E&M: 44086 Subs Hosp L2 05/29/25 0686 <Electronically signed by Khai Bullard DO> Cosigner Signature (if applicable): CC: ~ Signed [facility] Work Phone: [phone]) [phone] Progress note Author Brielle Turner [facility] Note Date/Time May 29, 2025 11:4 9am [facility] Medical Records Department [address] [place] [address] Progress Note - Surgery 05/29/25 1148 MR#: [id number] Acct: [id number] Name: SANDY DENG Rep #:[id number] : 1960 64 From: Brielle Turner MD PCP: Dr. Bird Lujan MD Status :ADM IN Location: [place] [address] Subjective Subjective Patient denies any issues overnight. Patient's creatinine is 4.44 from 4.05. Plan for tunneled dialysis catheter placement tomorrow Objective Data Objective Data Vital Signs: Vital Signs Temp Pulse Resp BP Pulse Ox O2 Del Method O2 Flow Rate 98 F 73 15 155/67 H 96 Nasal Cannula 2 05/29/25 08:30 05/29/25 08:36 05/29/25 08:30 05/29/25 08:30 05/29/25 08:30 05/29/25 08:30 05/29/25 08:30 Oxygen Flow Rate (L/min) 2 Oxygen Delivery Method Nasal Cannula Weight: 108 lb 11.006 oz Body Mass Index (BMI) 17.5 Intake & Output: Intake and Output for Last 24 Hours 05/27/25 05/28/25 05/29/25 23:59 23:59 23:59 Intake Total 715 / 835 595 / 595 Balance 715 / 835 595 / 595 Lab / Micro Data 05/28/25 05:30 05/29/25 05:04 Labs: Laboratory Results - last 24 hr 05/28/25 12:05: POC Glucose 229 H 05/28/25 19:04: POC Glucose 313 H 05/28/25 21:09: POC Glucose 334 H 05/29/25 05:04: Sodium 139, Potassium 5.3 H, Chloride 104, Carbon Dioxide 22.5, Anion Gap 12, BUN 69 H, Creatinine 4.44 H, Estim Creat Clear Calc 9.83 L*, Est GFR (MDRD) Non-Af 10 L, BUN/Creatinine Ratio 15.5, Glucose 164 H, Calcium 8.5 05/29/25 08:29: POC Glucose 94 07/27/25 10:11: POC Glucose 142 H Rhythm Strip Rhythm Strip: Sinus Rhythm Rate: 70 Ectopy: None Physical Exam Narrative Previous tunnel dialysis right IJ site well-healed?resolving ecchymosis Const oriented x3 and no apparent distress Assessment & Plan Assessment/Plan (1) Dialysis AV fistula malfunction: (2) ESRD (end stage renal disease) on dialysis: PLAN: Plan Plan for tunneled dialysis catheter placement Friday?time to be determined. Discussed procedure including risk not limited to bleeding, infection, catheter malfunction. Patient has no further questions. Brielle Turner M.D. Pager: [phone] [facility] [address] [place] [address], [facility], [address] [place] [address] Office: [phone] Charges/Coding Visit Charges Inpatient E&M: 35720 Subs Hosp L2 05/29/25 1149 <Electronically signed by Brielle Turner MD> Cosigner Signature (if applicable): CC: ~ Signed [facility] Work Phone: [phone]) 331-357907-27-2025 Consult note Author Brielle [facility] Note Date/Time May 29, 2025 11:4 8am [facility] Medical Records Department [address] [place] [address] Consultation - Surgical 05/28/251958 MR#: [id number] Acct: [id number] Name: SANDY DENG Rep #:[id number] : 1960 64 From: Brielle Turner MD PCP: Dr. Bird Lujan MD Status :ADM IN Location: [facility] [id number] Assessment & Plan Assessment/Plan (1) Dialysis AV fistula malfunction: (2) ESRD (end stage renal disease) on dialysis: PLAN: Plan Plan for tunneled dialysis catheter placement Friday?time to be determined. Discussed procedure including risk not limited to bleeding, infection, catheter malfunction. Patient has been over the questions time. Brielle Turner M.D. Pager: [phone] [facility] [address] [place] [address], Outpatient [facility], [address] [place] [address] Office: [phone] HPI Consult Data Date of Consult: 05/29/25 HPI Narrative HPI Narrative: SANDY DENG, is a 64 F who presents due to being unable to do dialysis through her right upper extremity fistula. Patient does do home IV dialysis however her was able to access the arterial as well as venous initially and that he had high pressure readings on the venous and was not getting good flows. Came into the hospital they attempted here and unable to get good flows on the venous as well. Consulted for temporary dialysis catheter. Patient had her previous 1 that was her right IJ removed about a month and a half ago per patient and her . Patient is on aspirin and Plavix which have been held for tunnel dialysis catheter placement Friday. [facility] Medical History On home oxygen therapy Wears [...] nodule, solitary Fissure in skin of foot Carlotta's sign present Tobacco abuse CKD (chronic kidney [...] Anxiety Depression Atherosclerosis of coronary artery of [place] heart without angina pectoris NSTEMI (non-ST elevated [...] denosumab 60 mg/mL subcutaneous 60 mg subcut [id number] bone health 06/10/24 07/09/24 Rx syringe (Prolia) #1 mL clopidogrel 75 mg tablet 75 mg PO DAILY anti platelet #90 07/26/24 01/03/25 Rx tabs nitroglycerin 0.4 mg sublingual 0.4 mg sublingual Q5-1 5M PRN chest 10/21/24 Unknown Rx tablet pain #25 tabs metoprolol tartrate 50 mg tablet 50 mg PO BID blood pr essure #180 11/11/24 01/03/25 Rx tabs amlodipine 10 mg tablet (Norvasc) 10 mg PO DAILY blood pressure 30 11/20/24 01/03/25 Rx days #30 tabs buspirone 7.5 mg tablet 7.5 mg PO DAILY Antianxiety 12/14/24 01/03/25 History sevelamer carbonate 800 mg tablet 800 mg PO TID To low er Phosphorus 12/14/24 01/03/25 History cefdinir 300 mg capsule 300 mg PO BID 5 days #10 cap s 01/06/25 Unknown Rx pseudoephedrine-guaifenesin ER 60 1 tab PO BID cold sy mptoms #14 tabs 01/06/25 Unknown Rx mg-600 mg tablet,extend release 12hr (Mucinex D) blood-glucose sensor (FreeStyle #6 ea 02/09/25 Unknown [...] infusion . continuous U-100 Insulin) #54 mL ondansetron 4 mg disintegrating 4 mg PO Q8H PRN PRN Na usea #10 tabs 05/08/25 Unknown Rx tablet roflumilast 500 mcg tablet 500 mcg PO DAILY breathing #30 tabs 05/11/25 Unknown Rx (Daliresp) fluticasone fur. 200 mcg-umeclid 1 inh inhalation ALEJANDRA Y breathing 05/18/25 Unknown Rx 62.5 mcg-vilant 25 mcg #3 ea inhalat.powder (Trelegy Ellipta) Allergy/AdvReac Type Severity Reaction Status Date / Time No Known Allergies Allergy Verified 05/27/25 19:11 Family History Mother Heart disease COPD (chronic [...] you feel safe at home: Yes ROS Constitutional Constitutional: Denies anorexia Eyes Eyes: Denies blurry vision ENT HEENT: Denies dysphagia Cardiovascular Cardiovascular: Denies chest pain Respiratory/Chest Respiratory/Chest: Denies cough Gastrointestinal Gastrointestinal: Denies abdominal pain Genitourinary Genitourinary: Denies dysuria Integumentary Integumentary: Denies jaundice Psychiatric Psychiatric: Denies anxiety Hematologic/Lymphatic Hematologic/Lymphatic: Reports easy bleeding and easy bruising Physical Exam Const alert, oriented x3 and no apparent distress HEENT normocephalic and head/scalp atraumatic Resp normal respiratory effort Cardio regular rate GI soft to palpation and non-tender; Negative for non-distended Palpation: Negative for guarding Extremity Extremity Narrative: Right upper extremity fistula good thrill Skin no rashes or lesions noted Neuro CN's II-XII intact bilaterally Psych mental status grossly normal Lab / Micro Data 05/28/25 05:30 05/29/25 05:04 Labs: Laboratory Results - last 24 hr 05/27/25 19:26: WBC 5.0, RBC 3.47 L, Hgb 9.8 L, Hct 32.2 L, MCV 92.8, MCH 28.2, MCHC 30.4 L, RDW Std Deviation 49.4 H, RDW Coeff of Iron 14.6, Plt Count 169, MPV11.4, Immature Gran % (Auto) 0.400, Neut % (Auto) 69.6, Lymph % (Auto) 16.0 L, Lynn % (Auto) 10.0, Eos % (Auto) 3.4, Baso % (Auto) 0.6, Absolute Neuts (auto) 3.5, Absolute Lymphs (auto) 0.80 L, Nucleated RBC % 0, Sodium Cancelled, Potassium Cancelled, Chloride Cancelled, Carbon Dioxide Cancelled, Anion Gap Cancelled, BUN Cancelled, Creatinine Cancelled, Estim Creat Clear Calc Cancelled, Est GFR (MDRD) Non-Af Cancelled, BUN/Creatinine Ratio Cancelled, Glucose Cancelled, Calcium Cancelled, Troponin T High Sens Cancelled 05/27/25 21:15: Sodium 142, Potassium 5.0, Chloride 108, Carbon Dioxide 24.1, Anion Gap 10, BUN 53 H, Creatinine 3.91 H, Estim Creat Clear Calc 10.71 L, Est GFR (MDRD) Non-Af 12 L, BUN/Creatinine Ratio 13.4, Glucose 109 H, Calcium 8.3, Troponin T High Sens 135 H* 05/27/25 23:04: Troponin T Hi Sens 2 Hr 133 H* 05/28/25 01:56: POC Glucose 156 H 05/28/25 05:30: WBC 3.8 L, RBC 3.49 L, Hgb 9.7 L, Hct 32.7 L, MCV 93.7, MCH 27.8, MCHC 29.7 L, RDW Std Deviation 48.7 H, RDW Coeff of Iron 14.5, Plt Count 142 L, MPV 10.4, Immature Gran % (Auto) 0.800, Neut % (Auto) 90.5 H, Lymph % (Auto) 5.5 L, Lynn % (Auto) 2.1, Eos % (Auto) 0.3, Baso % (Auto) 0.8, Absolute Neuts (auto) 3.5, Absolute Lymphs (auto) 0.21 L, Nucleated RBC % 0, Sodium 141, Potassium 4.8, Chloride 105, Carbon Dioxide 24.3, Anion Gap 12, BUN 55 H, Creatinine 4.05 H, Estim Creat Clear Calc 10.43 L, Est GFR (MDRD) Non-Af 12 L, BUN/Creatinine Ratio 13.6, Glucose 176 H, Calcium 8.3 05/28/25 12:05: POC Glucose 229 H 05/28/25 19:04: POC Glucose 313 H Rhythm Strip Rhythm Strip: Sinus Rhythm Rate: 70 Ectopy: None Imaging Radiology Impression Chest X-Ray 05/27/25 19:50 IMPRESSION: Pulmonary findings as above. Reading Location: [facility] Charges/Coding Visit Charges Inpatient E&M: 94857 Init Hosp L3 05/29/25 1148 <Electronically signed by Brielle Turner MD> Cosigner Signature (if applicable): CC: Dr. Bird Lujan MD~ Signed [facility] Work Phone: 1(871) 417-922207-26-2025 Progress note Author Favian Nicholas [facility] Note Date/Time May 28, 2025 7:35 pm [facility] Medical Records Department [address] [place] [address] Progress Note - Hospitalist 05/28/251933 MR#: [id number] Acct: [id number] Name: SANDY DENG Rep #:[id number] : 1960 64 From: Favian Nicholas DO PCP: Dr. Bird Lujan MD Status :ADM IN Location: [place] [address] Hospitalist Note Patient has insulin pump in her blood sugars were in the 300s. Patient requesting removal of her insulin pump and for us to manage her diabetes while she is here. Will discontinue the insulin pump and start her on basal, prandialand sliding scale insulin. Basal 20 twice daily, prandial 10 3 times daily withmeals as well as a low-dose sliding scale. 05/28/251934 <Electronically signed by Favian Nichoals DO> Cosigner Signature (if applicable): CC: ~ Signed [facility] Work Phone: 1(580) 882-830907-26-2025 Progress note Author [facility] Note Date/Time May 28, 2025 4:19 pm [facility] Medical Records Department [address] [place] [address] Progress Note - Hospitalist 05/28/25 1616 MR#: [id number] Acct: [id number] Name: SANDY DENG Rep #:[id number] : 1960 64 From: Khai Bullard DO PCP: Dr. Bird Lujan MD Status :ADM IN Location: [place] [address] Hospitalist Note Patient was seen and examined today, her fistula was not functioning properly and nephrology was unable to do dialysis today, I talked with Dr. Christy Huerta about the nonfunctioning fistula, I also told her that I talked with vascular surgery who asked me to obtain a duplex of the fistula, they would not be able to see the patient however until 05/30/2025. Dr. Huerta requested that I have a tunneled dialysis catheter placed, we will be unable to dialyze the patient thisweekend so that tunneled catheter placement will be on 05/30/2025. On my examination today, patient has no inspiratory or expiratory wheezing, I think itis unlikely that she has a flareup of COPD, her chest x-ray was read out as vascular congestion and pulmonary fibrosis or possible pneumonitis-I do not think the patient has pneumonitis. I have elected to drop her Solu-Medrol off and place her on budesonide aerosol treatments, I elected to place her on Zithromax in case she does have a flareup of COPD. Patient is on her home oxygen level which is 2 L, I had a discussion with her and her in the room today and she knows she will have to stay in the hospital into the next week. 05/28/25 1619 <Electronically signed by Khai Bullard DO> Cosigner Signature (if applicable): CC: ~ Signed [facility] Work Phone: 1(417) 303-479007-26-2025 History and physical note Author Favian Nicholas [facility] Note Date/Time May 28, 2025 12:4 8am [facility] Medical Records Department [address] [place] [address] H&P Exam - Hospitalist 05/28/25 0039 MR#: [id number] Acct: [id number] Name: SANDY DENG Rep #:[id number] : 1960 64 From: Favian Nicholas DO PCP: Dr. Bird Lujan MD Status :ADM IN Location: [place] [id number] HPI - General General Date of Service: 05/28/25 Chief Complaint: Shortness of breath HPI Narrative SANDY DENG, is a 64 F who presents with a 2-day history of shortness of breath. This is a 64-year-old female dialysis patient who does home dialysis has been short of breath for the past 3 days. She is short of breath all the time. Patient has been doing home dialysis and had most recently this past Friday with no issues but then on Friday patient had pain in her arm and had to be discontinued. They spoke with the dialysis nurse who told them that the venous line may have infiltrated. They present here concern for worsening fluidbuildup due to missing dialysis. Patient had a chest x-ray that showed some perhaps some pulmonary vascular congestion. Patient received methylprednisoloneand bronchodilators in the emergency room. [facility] Medical History On home oxygen therapy Wears [...] nodule, solitary Fissure in skin of foot Carlotta's sign present Tobacco abuse CKD (chronic kidney [...] Anxiety Depression Atherosclerosis of coronary artery of [place] without angina pectoris NSTEMI (non-ST elevated [...] denosumab 60 mg/mL subcutaneous 60 mg subcut [id number] bone health 06/10/24 07/09/24 Rx syringe (Prolia) #1 mL clopidogrel 75 mg tablet 75 mg PO DAILY anti platelet #90 07/26/24 01/03/25 Rx tabs nitroglycerin 0.4 mg sublingual 0.4 mg sublingual Q5-1 5M PRN chest 10/21/24 Unknown Rx tablet pain #25 tabs metoprolol tartrate 50 mg tablet 50 mg PO BID blood pr essure #180 11/11/24 01/03/25 Rx tabs amlodipine 10 mg tablet (Norvasc) 10 mg PO DAILY blood pressure 30 11/20/24 01/03/25 Rx days #30 tabs buspirone 7.5 mg tablet 7.5 mg PO DAILY Antianxiety 12/14/24 01/03/25 History sevelamer carbonate 800 mg tablet 800 mg PO TID To low er Phosphorus 12/14/24 01/03/25 History cefdinir 300 mg capsule 300 mg PO BID 5 days #10 cap s 01/06/25 Unknown Rx pseudoephedrine-guaifenesin ER 60 1 tab PO BID cold sy mptoms #14 tabs 01/06/25 Unknown Rx mg-600 mg tablet,extend release 12hr (Mucinex D) blood-glucose sensor (FreeStyle #6 ea 02/09/25 Unknown [...] infusion . continuous U-100 Insulin) #54 mL ondansetron 4 mg disintegrating 4 mg PO Q8H PRN PRN Na usea #10 tabs 05/08/25 Unknown Rx tablet roflumilast 500 mcg tablet 500 mcg PO DAILY breathing #30 tabs 05/11/25 Unknown Rx (Daliresp) fluticasone fur. 200 mcg-umeclid 1 inh inhalation ALEJANDRA Y breathing 05/18/25 Unknown Rx 62.5 mcg-vilant 25 mcg #3 ea inhalat.powder (Trelegy Ellipta) Allergy/AdvReac Type Severity Reaction Status Date / Time No Known Allergies Allergy Verified 05/27/25 19:11 Family History Mother Heart disease COPD (chronic [...] feel safe at home: Yes ROS ROS Narrative Bruising on chest from removal of tunneled dialysis catheter. Described as overall improved from previous. Weight has gone up 0.8 kg. Has chronic lower extremity edema but no change recently. All review of systems were negative except as mentioned above in the history of present illness and the other reviewof systems. Vital Signs Vital Signs Vital Signs: 05/27/25 19:07 05/27/25 19:11 05/27/25 19:11 Temperature 36.8 C 36.5 C L Temperature Source Oral Oral Pulse Rate 71 71 Respiratory Rate 20 H 20 H Respiratory Effort Short of Breath Respiratory Depth Normal Respiratory Pattern Normal Blood Pressure 166/66 H 166/66 H Blood Pressure Mean 99 99 Pulse Ox 100 100 Oxygen Delivery Method Nasal Cannula Venturi Mask Nasal Cannula Oxygen Flow Rate (L/min) 3 3 3 05/27/25 19:50 05/27/25 20:11 05/27/25 20:22 Temperature 37.0 C Temperature Source Oral Pulse Rate 69 78 Respiratory Rate 18 20 H Respiratory Effort Respiratory Depth Respiratory Pattern Normal Blood Pressure 166/66 H Blood Pressure Mean 99 Pulse Ox 999 Oxygen Delivery Method Nasal Cannula Nasal Cannula Oxygen Flow Rate (L/min) 2 3 05/27/25 21:00 05/27/25 22:00 05/27/25 23:00 Temperature Temperature Source Pulse Rate 72 80 80 Respiratory Rate Respiratory Effort Respiratory Depth Respiratory Pattern Blood Pressure 165/78 H 168/78 H 170/63 H Blood Pressure Mean 107 108 98 Pulse Ox 99 99 99 Oxygen Delivery Method Nasal Cannula Oxygen Flow Rate (L/min) 3 05/28/25 00:00 05/28/25 00:31 Temperature 36.9 C Temperature Source Pulse Rate 80 77 Respiratory Rate 22 H Respiratory Effort Respiratory Depth Respiratory Pattern Blood Pressure 173/63 H 165/63 H Blood Pressure Mean 99 97 Pulse Ox 99 97 Oxygen Delivery Method Oxygen Flow Rate (L/min) Weight Weight: 47.3 kg Body Mass Index (BMI) 16.8 Physical Exam Const alert and no apparent distress General Appearance: cooperative HEENT normocephalic and head/scalp atraumatic Neck no lymphadenopathy Neck Narrative: Positive JVD Resp Resp Narrative: Diminished breath sounds throughout bilateral lung russell. Faint end expiratorywheeze. Cardio regular rate, regular rhythm, S1 normal heart sound and S2 normal heart sound GI normal to inspection, nondistended, normoactive bowel sounds, soft to palpation,non-tender and non-distended Extremity normal to inspection and full ROM Skin Skin Narrative: Does have ecchymosis on her anterior chest. Neuro moves all extremities and no focal motor deficits Sensorium / Orientation: awake and alert Psych Mood & Affect: anxious Results Lab / Micro Data Attestation: I reviewed the patient's lab results. 05/27/25 19:26 05/27/25 21:15 Labs: Laboratory Results - last 24 hr 05/27/25 19:26: WBC 5.0, RBC 3.47 L, Hgb 9.8 L, Hct 32.2 L, MCV 92.8, MCH 28.2, MCHC 30.4 L, RDW Std Deviation 49.4 H, RDW Coeff of Iron 14.6, Plt Count 169, MPV11.4, Immature Gran % (Auto) 0.400, Neut % (Auto) 69.6, Lymph % (Auto) 16.0 L, Lynn % (Auto) 10.0, Eos % (Auto) 3.4, Baso % (Auto) 0.6, Absolute Neuts (auto) 3.5, Absolute Lymphs (auto) 0.80 L, Nucleated RBC % 0, Sodium Cancelled, Potassium Cancelled, Chloride Cancelled, Carbon Dioxide Cancelled, Anion Gap Cancelled, BUN Cancelled, Creatinine Cancelled, Estim Creat Clear Calc Cancelled, Est GFR (MDRD) Non-Af Cancelled, BUN/Creatinine Ratio Cancelled, Glucose Cancelled, Calcium Cancelled, Troponin T High Sens Cancelled 05/27/25 21:15: Sodium 142, Potassium 5.0, Chloride 108, Carbon Dioxide 24.1, Anion Gap 10, BUN 53 H, Creatinine 3.91 H, Estim Creat Clear Calc 10.71 L, Est GFR (MDRD) Non-Af 12 L, BUN/Creatinine Ratio 13.4, Glucose 109 H, Calcium 8.3, Troponin T High Sens 135 H* 05/27/25 23:04: Troponin T Hi Sens 2 Hr 133 H* Rhythm Strip Rhythm Strip: Sinus Rhythm Rate: 70 Ectopy: None Imaging Radiology Impression Chest X-Ray 05/27/25 19:50 IMPRESSION: Pulmonary findings as above. Reading Location: [facility] Assessment & Plan Assessment/Plan (1) COPD exacerbation: PLAN: Lungs sound very diminished. Will continue methylprednisolone as well as bronchodilators (2) End stage renal disease: PLAN: On home dialysis. Patient did not complete her dialysis session on the due to pain and concern for infiltration of the venous port. Dr. Huerta has been contacted by the emergency room answered the patient to have dialysis today on the . (3) Elevated troponin I level: PLAN: Suspect demand ischemia due to the dyspnea from COPD but also level is likely skewed upwards given her end-stage renal disease. PLAN: Plan Diabetes mellitus type 1: On insulin pump. Will continue with that. Check glucose before every meal and at bedtime. CAD: Stable continue aspirin and clopidogrel Hypertension: Stable continue with amiodarone and metoprolol titrate VTE prophylaxis with subcu heparin CODE STATUS: Addressed with the patient. Patient wishes to be full code. Discussed with the patient's at bedside. Charges/Coding Visit Charges Inpatient E&M: 11136 Init Hosp L3 05/28/25 0048 <Electronically signed by Favian Nicholas DO> Cosigner Signature (if applicable): CC: Dr. Bird Lujan MD; Dr. Favian Nciholas DO~ Signed [facility] Work Phone: [phone]) [phone] Discharge summary Author Bentley Salazar [facility] Note Date/Time May 28, 2025 12:2 8am [facility] Medical Records Department [address] [place] [address] Emergency Department Summary 05/27/25 MR#: [id number] Acct: [id number] Name: SANDY DENG Rep #:[id number] : 1960 64 From: Bentley Salazar MD PCP: Dr. Bird Lujan MD Status :REG ER Location: ED HPI History of Present Illness Chief Complaint: Shortness of Breath Informant: patient and spouse/S.O. Narrative Narrative: 64-year-old female gasping dyspnea for the past 2 days gradually worsening. Chronic cough that is worse but not productive of sputum. No blood. Occasionalrelatively brief substernal chest discomfort that she cannot describe otherwise. It is not sharp and tearing. Denies any new edema in her legs or calf pain. It is worse when she lies down. She denies any GI symptoms. She has COPD and is chronically on 3 L at home. She did albuterol nebulizer at home, it helped very little but it was a little bit helpful. Denies any fevers or chills. She is a dialysis patient, she makes a little bit of urine, she does home hemodialysis which is relatively new for her with regards to her right upper extremity AV fistula. Today is Friday, on Friday she did dialysis session without any trouble, but today when they did it, the venous return line was causing severe pain and the machine was indicating high pressures; they called the clinic and they were told the blood probably infiltrated and to not do dialysis anymore until tomorrow so they aborted. She admits that she has been drinking more fluid than usual lately. She has had stents in the past in her heart. [facility] Medical History On home oxygen therapy Wears [...] nodule, solitary Fissure in skin of foot Carlotta's sign present Tobacco abuse CKD (chronic kidney [...] Anxiety Depression Atherosclerosis of coronary artery of [place] without angina pectoris NSTEMI (non-ST elevated [...] denosumab 60 mg/mL subcutaneous 60 mg subcut [id number] bone health 06/10/24 07/09/24 Rx syringe (Prolia) #1 mL clopidogrel 75 mg tablet 75 mg PO DAILY anti platelet #90 07/26/24 01/03/25 Rx tabs nitroglycerin 0.4 mg sublingual 0.4 mg sublingual Q5-1 5M PRN chest 10/21/24 Unknown Rx tablet pain #25 tabs metoprolol tartrate 50 mg tablet 50 mg PO BID blood pr essure #180 11/11/24 01/03/25 Rx tabs amlodipine 10 mg tablet (Norvasc) 10 mg PO DAILY blood pressure 30 11/20/24 01/03/25 Rx days #30 tabs buspirone 7.5 mg tablet 7.5 mg PO DAILY Antianxiety 12/14/24 01/03/25 History sevelamer carbonate 800 mg tablet 800 mg PO TID To low er Phosphorus 12/14/24 01/03/25 History cefdinir 300 mg capsule 300 mg PO BID 5 days #10 cap s 01/06/25 Unknown Rx pseudoephedrine-guaifenesin ER 60 1 tab PO BID cold sy mptoms #14 tabs 01/06/25 Unknown Rx mg-600 mg tablet,extend release 12hr (Mucinex D) blood-glucose sensor (FreeStyle #6 ea 02/09/25 Unknown [...] infusion . continuous U-100 Insulin) #54 mL ondansetron 4 mg disintegrating 4 mg PO Q8H PRN PRN Na usea #10 tabs 05/08/25 Unknown Rx tablet roflumilast 500 mcg tablet 500 mcg PO DAILY breathing #30 tabs 05/11/25 Unknown Rx (Daliresp) fluticasone fur. 200 mcg-umeclid 1 inh inhalation ALEJANDRA Y breathing 05/18/25 Unknown Rx 62.5 mcg-vilant 25 mcg #3 ea inhalat.powder (Trelegy Ellipta) Allergy/AdvReac Type Severity Reaction Status Date / Time No Known Allergies Allergy Verified 05/27/25 19:11 Family History Mother Heart disease COPD (chronic [...] ROS ROS ED Constitutional Constitutional ED: Denies chills or fever(s) Eyes Eyes: Denies change in vision or diplopia ENT ENT ED: Denies rhinorrhea or sore throat Cardiovascular Cardiovascular: Reports chest pain and orthopnea; Denies leg edema, palpitationsor syncope Respiratory/Chest Respiratory/Chest: Reports cough, dyspnea, dyspnea on exertion, orthopnea and other Details: Extremely dyspneic with very little activity Gastrointestinal Gastrointestinal: Denies abdominal pain, diarrhea, nausea or vomiting Genitourinary Genitourinary ED: Denies dysuria or hematuria Musculoskeletal Musculoskeletal: Denies back pain or neck pain Integumentary Denies abscess or rash Neurologic Neurologic: Denies headache(s), paresthesias or weakness Psychiatric Psychiatric: Denies suicidal thoughts EXAM Physical Exam Const Vital Signs: 05/27/25 19:07 05/27/25 19:11 05/27/25 19:11 Temperature 98.3 F 97.7 F L Temperature Source Oral Oral Pulse Rate 71 71 Respiratory Rate 20 H 20 H Respiratory Effort Short of Breath Respiratory Depth Normal Respiratory Pattern Normal Blood Pressure 166/66 H 166/66 H Blood Pressure Mean 99 99 Pulse Ox 100 100 Oxygen Delivery Method Nasal Cannula Venturi Mask Nasal Cannula Oxygen Flow Rate (L/min) 3 3 3 05/27/25 19:50 05/27/25 20:11 05/27/25 20:22 Temperature 98.6 F Temperature Source Oral Pulse Rate 69 78 Respiratory Rate 18 20 H Respiratory Effort Respiratory Depth Respiratory Pattern Normal Blood Pressure 166/66 H Blood Pressure Mean 99 Pulse Ox 999 Oxygen Delivery Method Nasal Cannula Nasal Cannula Oxygen Flow Rate (L/min) 2 3 05/27/25 21:00 05/27/25 22:00 05/27/25 23:00 Temperature Temperature Source Pulse Rate 72 80 80 Respiratory Rate Respiratory Effort Respiratory Depth Respiratory Pattern Blood Pressure 165/78 H 168/78 H 170/63 H Blood Pressure Mean 107 108 98 Pulse Ox 99 99 99 Oxygen Delivery Method Nasal Cannula Oxygen Flow Rate (L/min) 3 05/28/25 00:00 Temperature Temperature Source Pulse Rate 80 Respiratory Rate Respiratory Effort Respiratory Depth Respiratory Pattern Blood Pressure 173/63 H Blood Pressure Mean 99 Pulse Ox 99 Oxygen Delivery Method Oxygen Flow Rate (L/min) Positive well nourished and well developed Constitutional Narrative: Tachypneic no distress General Appearance ED: well developed HEENT Reports moist mucous membranes normocephalic and atraumatic Eyes PERRL and EOMs intact bilaterally Neck full ROM and supple Resp Resp Narrative: Tachypnea, diffusely severely diminished, occasional inspiratory wheeze. Symmetric bilaterally. Trachea midline. No other adventitious breath sounds. Cardio regular rate, regular rhythm and no murmurs GI non-tender and non-distended Auscultation: normoactive bowel sounds Palpation: soft Back/Spine no CVA tenderness General Back: other FROM Extremity normal to inspection General Extremety ED: Negative for edema, pulses abnormal or tenderness General Extremity: Negative for edema or pulses abnormal Neuro oriented x3, CN's II-XII intact bilaterally and no sensory deficits noted Sensorium / Orientation: awake and alert Motor Exam: strength 5/5 throughout Psych Mood & Affect: anxious Skin no rashes or lesions noted and no wounds MDM MDM MDM Narrative Medical decision making narrative: 2 view chest x-ray my interpretation shows a small left pleural effusion, no pneumonia. According to radiology interpretation, the interstitial pattern favors edema. EKG shows nothing acute, no changes compared with her old on my interpretation. While waiting for blood work, she was treated with an albuterol/ipratropium nebulizer treatment. This helped a little but she was still feeling dyspneic although her oxygen saturations were excellent on her home O2. Her troponin is elevated at 135 however in context of her ESRD. This was repeated 2 hours later. It is similar at 133, arguing against ACS. It is unclear if her symptoms are more COPD-related or from pulmonary edema. Mysuspicion or concern is for the latter, since she states she has been drinking more fluids than lately, and she and her state that her weight today is about a kilogram over her dry weight and they were unable to take fluid off today since they were not able to get the venous line into her arm vein appropriately. Patient is having no chest pain while she is here, I do not think she needs to be admitted for those symptoms, my concern is that she is still dyspneic and borderline tachypneic, and they were told not to do dialysis again until tomorrow evening. I discussed with staff, we are going to have a dialysis nursehere in the morning. I discussed with Dr. Huerta, her teacher of the emotionally disturbed. She is in agreement that it would be reasonable to admit her but to make sure the patient understands that she will not be able to receive dialysis until the morning shift. Discussed that with the patient, she prefers to stay and have the dialysis nurse dialyze her in the morning. We both agree that this could be an early COPD exacerbation as well, so we also treated her with some steroids. Will discuss with hospitalist. History & Record Review Additional record(s) reviewed:: Other (Echocardiogram 12/2024: Normal EF, no diastolic dysfunction, 1+ mitral insufficiency) Lab Data Attestation: I reviewed the patient's lab results. Labs: Laboratory Results - last 24 hr 05/27/25 05/27/25 05/27/25 19:26 21:15 23:04 WBC 5.0 RBC 3.47 L Hgb 9.8 L Hct 32.2 L MCV 92.8 MCH 28.2 MCHC 30.4 L RDW Std Deviation 49.4 H RDW Coeff of Iron 14.6 Plt Count 169 MPV 11.4 Immature Gran % (Auto) 0.400 Neut % (Auto) 69.6 Lymph % (Auto) 16.0 L Lynn % (Auto) 10.0 Eos % (Auto) 3.4 Baso % (Auto) 0.6 Absolute Neuts (auto) 3.5 Absolute Lymphs (auto) 0.80 L Nucleated RBC % 0 Sodium Cancelled 142 Potassium Cancelled 5.0 Chloride Cancelled 108 Carbon Dioxide Cancelled 24.1 Anion Gap Cancelled 10 BUN Cancelled 53 H Creatinine Cancelled 3.91 H Estim Creat Clear Calc Cancelled 10.71 L Est GFR (MDRD) Non-Af Cancelled 12 L BUN/Creatinine Ratio Cancelled 13.4 Glucose Cancelled 109 H Calcium Cancelled 8.3 Troponin T High Sens Cancelled 135 H* Troponin T Hi Sens 2 Hr 133 H* Radiography Diagnostic Testing: Clinical Impression(s) from Imaging Studies Chest X-Ray 05/27/25 19:50 IMPRESSION: Pulmonary findings as above. Reading Location: [facility] PROCEDURE: CHEST 1 VIEW (PORTABLE) 05/27/2025 REASON FOR EXAM: DYSPNEA TECHNIQUE: Frontal view of the chest. COMPARISON: 05/08/2025. FINDINGS: The heart is enlarged. Vascular indistinctness lung bases favoring edema. Similar reticular opacities which may represent additional findings of edema, chronic interstitial changes, pneumonitis, or mixture thereof. Blunting of the bilateral costophrenic sulci likely representing small bilateral pleural effusions. Rhythm Strip Rhythm Strip: Sinus Rhythm Rate: 70 Ectopy: None EKG Initial EKG: Attestation: I personally reviewed and interpreted this EKG as follows: Interpretation: Sinus Rhythm and No Acute Injury Pattern Comments: Left axis. Borderline LVH. Prior EKG tracings: available for review Prior: Unchanged Management Discussion w/another healthcare provider: Hospitalist and It Support Analyst (NephrologyDr. Huerta) Discharge Plan Dx/Rx/DC Orders Clinical Impression: Dyspnea, End-stage renal disease on hemodialysis, Chronic obstructive pulmonarydisease, Intermittent chest pain Disposition Disposition: Acute Care [facility] What to do if you have Problems For any increased pain, shortness of breath, bleeding, nausea or vomiting, chestpain, or any unexpected problems, contact your Primary Care Provider. Call [employer] [facility] ([phone]) or report to the closest Emergency Room. Call 911 if necessary. 05/28/25 0028 <Electronically signed by Bentley Salazar MD> Cosigner Signature (if applicable): CC: Dr. Bird Lujan MD ~ Signed [facility] Work Phone: 1(546) 881-463807-25-2025 Radiology Diagnostic study [facility]07-25-2025 Discharge summary Author Bentley Salazar [facility] Note Date/Time May 28, 2025 12:2 8am [facility] Medical Records Department [address] [place] [address] Emergency Department Summary 05/27/25 MR#: [id number] Acct: [id number] Name: SANDY DENG Rep #:[id number] : 1960 64 From: Bentley Salazar MD PCP: Dr. Bird Lujan MD Status :REG ER Location: ED HPI History of Present Illness Chief Complaint: Shortness of Breath Informant: patient and spouse/S.O. Narrative Narrative: 64-year-old female gasping dyspnea for the past 2 days gradually worsening. Chronic cough that is worse but not productive of sputum. No blood. Occasionalrelatively brief substernal chest discomfort that she cannot describe otherwise. It is not sharp and tearing. Denies any new edema in her legs or calf pain. It is worse when she lies down. She denies any GI symptoms. She has COPD and is chronically on 3 L at home. She did albuterol nebulizer at home, it helped very little but it was a little bit helpful. Denies any fevers or chills. She is a dialysis patient, she makes a little bit of urine, she does home hemodialysis which is relatively new for her with regards to her right upper extremity AV fistula. Today is Friday, on Friday she did dialysis session without any trouble, but today when they did it, the venous return line was causing severe pain and the machine was indicating high pressures; they called the clinic and they were told the blood probably infiltrated and to not do dialysis anymore until tomorrow so they aborted. She admits that she has been drinking more fluid than usual lately. She has had stents in the past in her heart. [facility] Medical History On home oxygen therapy Wears [...] nodule, solitary Fissure in skin of foot Carlotta's sign present Tobacco abuse CKD (chronic kidney [...] Anxiety Depression Atherosclerosis of coronary artery of [place] heart without angina pectoris NSTEMI (non-ST elevated [...] denosumab 60 mg/mL subcutaneous 60 mg subcut [id number] bone health 06/10/24 07/09/24 Rx syringe (Prolia) #1 mL clopidogrel 75 mg tablet 75 mg PO DAILY anti platelet #90 07/26/24 01/03/25 Rx tabs nitroglycerin 0.4 mg sublingual 0.4 mg sublingual Q5-1 5M PRN chest 10/21/24 Unknown Rx tablet pain #25 tabs metoprolol tartrate 50 mg tablet 50 mg PO BID blood pr essure #180 11/11/24 01/03/25 Rx tabs amlodipine 10 mg tablet (Norvasc) 10 mg PO DAILY blood pressure 30 11/20/24 01/03/25 Rx days #30 tabs buspirone 7.5 mg tablet 7.5 mg PO DAILY Antianxiety 12/14/24 01/03/25 History sevelamer carbonate 800 mg tablet 800 mg PO TID To low er Phosphorus 12/14/24 01/03/25 History cefdinir 300 mg capsule 300 mg PO BID 5 days #10 cap s 01/06/25 Unknown Rx pseudoephedrine-guaifenesin ER 60 1 tab PO BID cold sy mptoms #14 tabs 01/06/25 Unknown Rx mg-600 mg tablet,extend release 12hr (Mucinex D) blood-glucose sensor (FreeStyle #6 ea 02/09/25 Unknown [...] infusion . continuous U-100 Insulin) #54 mL ondansetron 4 mg disintegrating 4 mg PO Q8H PRN PRN Na usea #10 tabs 05/08/25 Unknown Rx tablet roflumilast 500 mcg tablet 500 mcg PO DAILY breathing #30 tabs 05/11/25 Unknown Rx (Daliresp) fluticasone fur. 200 mcg-umeclid 1 inh inhalation ALEJANDRA Y breathing 05/18/25 Unknown Rx 62.5 mcg-vilant 25 mcg #3 ea inhalat.powder (Trelegy Ellipta) Allergy/AdvReac Type Severity Reaction Status Date / Time No Known Allergies Allergy Verified 05/27/25 19:11 Family History Mother Heart disease COPD (chronic [...] ROS ROS ED Constitutional Constitutional ED: Denies chills or fever(s) Eyes Eyes: Denies change in vision or diplopia ENT ENT ED: Denies rhinorrhea or sore throat Cardiovascular Cardiovascular: Reports chest pain and orthopnea; Denies leg edema, palpitationsor syncope Respiratory/Chest Respiratory/Chest: Reports cough, dyspnea, dyspnea on exertion, orthopnea and other Details: Extremely dyspneic with very little activity Gastrointestinal Gastrointestinal: Denies abdominal pain, diarrhea, nausea or vomiting Genitourinary Genitourinary ED: Denies dysuria or hematuria Musculoskeletal Musculoskeletal: Denies back pain or neck pain Integumentary Denies abscess or rash Neurologic Neurologic: Denies headache(s), paresthesias or weakness Psychiatric Psychiatric: Denies suicidal thoughts EXAM Physical Exam Const Vital Signs: 05/27/25 19:07 05/27/25 19:11 05/27/25 19:11 Temperature 98.3 F 97.7 F L Temperature Source Oral Oral Pulse Rate 71 71 Respiratory Rate 20 H 20 H Respiratory Effort Short of Breath Respiratory Depth Normal Respiratory Pattern Normal Blood Pressure 166/66 H 166/66 H Blood Pressure Mean 99 99 Pulse Ox 100 100 Oxygen Delivery Method Nasal Cannula Venturi Mask Nasal Cannula Oxygen Flow Rate (L/min) 3 3 3 05/27/25 19:50 05/27/25 20:11 05/27/25 20:22 Temperature 98.6 F Temperature Source Oral Pulse Rate 69 78 Respiratory Rate 18 20 H Respiratory Effort Respiratory Depth Respiratory Pattern Normal Blood Pressure 166/66 H Blood Pressure Mean 99 Pulse Ox 999 Oxygen Delivery Method Nasal Cannula Nasal Cannula Oxygen Flow Rate (L/min) 2 3 05/27/25 21:00 05/27/25 22:00 05/27/25 23:00 Temperature Temperature Source Pulse Rate 72 80 80 Respiratory Rate Respiratory Effort Respiratory Depth Respiratory Pattern Blood Pressure 165/78 H 168/78 H 170/63 H Blood Pressure Mean 107 108 98 Pulse Ox 99 99 99 Oxygen Delivery Method Nasal Cannula Oxygen Flow Rate (L/min) 3 05/28/25 00:00 Temperature Temperature Source Pulse Rate 80 Respiratory Rate Respiratory Effort Respiratory Depth Respiratory Pattern Blood Pressure 173/63 H Blood Pressure Mean 99 Pulse Ox 99 Oxygen Delivery Method Oxygen Flow Rate (L/min) Positive well nourished and well developed Constitutional Narrative: Tachypneic no distress General Appearance ED: well developed HEENT Reports moist mucous membranes normocephalic and atraumatic Eyes PERRL and EOMs intact bilaterally Neck full ROM and supple Resp Resp Narrative: Tachypnea, diffusely severely diminished, occasional inspiratory wheeze. Symmetric bilaterally. Trachea midline. No other adventitious breath sounds. Cardio regular rate, regular rhythm and no murmurs GI non-tender and non-distended Auscultation: normoactive bowel sounds Palpation: soft Back/Spine no CVA tenderness General Back: other FROM Extremity normal to inspection General Extremety ED: Negative for edema, pulses abnormal or tenderness General Extremity: Negative for edema or pulses abnormal Neuro oriented x3, CN's II-XII intact bilaterally and no sensory deficits noted Sensorium / Orientation: awake and alert Motor Exam: strength 5/5 throughout Psych Mood & Affect: anxious Skin no rashes or lesions noted and no wounds MDM MDM MDM Narrative Medical decision making narrative: 2 view chest x-ray my interpretation shows a small left pleural effusion, no pneumonia. According to radiology interpretation, the interstitial pattern favors edema. EKG shows nothing acute, no changes compared with her old on my interpretation. While waiting for blood work, she was treated with an albuterol/ipratropium nebulizer treatment. This helped a little but she was still feeling dyspneic although her oxygen saturations were excellent on her home O2. Her troponin is elevated at 135 however in context of her ESRD. This was repeated 2 hours later. It is similar at 133, arguing against ACS. It is unclear if her symptoms are more COPD-related or from pulmonary edema. Mysuspicion or concern is for the latter, since she states she has been drinking more fluids than lately, and she and her state that her weight today is about a kilogram over her dry weight and they were unable to take fluid off today since they were not able to get the venous line into her arm vein appropriately. Patient is having no chest pain while she is here, I do not think she needs to be admitted for those symptoms, my concern is that she is still dyspneic and borderline tachypneic, and they were told not to do dialysis again until tomorrow evening. I discussed with staff, we are going to have a dialysis nursehere in the morning. I discussed with Dr. Huerta, her teacher of the emotionally disturbed. She is in agreement that it would be reasonable to admit her but to make sure the patient understands that she will not be able to receive dialysis until the morning shift. Discussed that with the patient, she prefers to stay and have the dialysis nurse dialyze her in the morning. We both agree that this could be an early COPD exacerbation as well, so we also treated her with some steroids. Will discuss with hospitalist. History & Record Review Additional record(s) reviewed:: Other (Echocardiogram 12/2024: Normal EF, no diastolic dysfunction, 1+ mitral insufficiency) Lab Data Attestation: I reviewed the patient's lab results. Labs: Laboratory Results - last 24 hr 05/27/25 05/27/25 05/27/25 19:26 21:15 23:04 WBC 5.0 RBC 3.47 L Hgb 9.8 L Hct 32.2 L MCV 92.8 MCH 28.2 MCHC 30.4 L RDW Std Deviation 49.4 H RDW Coeff of Iron 14.6 Plt Count 169 MPV 11.4 Immature Gran % (Auto) 0.400 Neut % (Auto) 69.6 Lymph % (Auto) 16.0 L Lynn % (Auto) 10.0 Eos % (Auto) 3.4 Baso % (Auto) 0.6 Absolute Neuts (auto) 3.5 Absolute Lymphs (auto) 0.80 L Nucleated RBC % 0 Sodium Cancelled 142 Potassium Cancelled 5.0 Chloride Cancelled 108 Carbon Dioxide Cancelled 24.1 Anion Gap Cancelled 10 BUN Cancelled 53 H Creatinine Cancelled 3.91 H Estim Creat Clear Calc Cancelled 10.71 L Est GFR (MDRD) Non-Af Cancelled 12 L BUN/Creatinine Ratio Cancelled 13.4 Glucose Cancelled 109 H Calcium Cancelled 8.3 Troponin T High Sens Cancelled 135 H* Troponin T Hi Sens 2 Hr 133 H* Radiography Diagnostic Testing: Clinical Impression(s) from Imaging Studies Chest X-Ray 05/27/25 19:50 IMPRESSION: Pulmonary findings as above. Reading Location: [facility] PROCEDURE: CHEST 1 VIEW (PORTABLE) 05/27/2025 REASON FOR EXAM: DYSPNEA TECHNIQUE: Frontal view of the chest. COMPARISON: 05/08/2025. FINDINGS: The heart is enlarged. Vascular indistinctness lung bases favoring edema. Similar reticular opacities which may represent additional findings of edema, chronic interstitial changes, pneumonitis, or mixture thereof. Blunting of the bilateral costophrenic sulci likely representing small bilateral pleural effusions. Rhythm Strip Rhythm Strip: Sinus Rhythm Rate: 70 Ectopy: None EKG Initial EKG: Attestation: I personally reviewed and interpreted this EKG as follows: Interpretation: Sinus Rhythm and No Acute Injury Pattern Comments: Left axis. Borderline LVH. Prior EKG tracings: available for review Prior: Unchanged Management Discussion w/another healthcare provider: Hospitalist and It Support Analyst (NephrologyDr. Huerta) Discharge Plan Dx/Rx/DC Orders Clinical Impression: Dyspnea, End-stage renal disease on hemodialysis, Chronic obstructive pulmonarydisease, Intermittent chest pain Disposition Disposition: Acute Care Hospital [facility] What to do if you have Problems For any increased pain, shortness of breath, bleeding, nausea or vomiting, chestpain, or any unexpected problems, contact your Primary Care Provider. Call [facility] ([phone]) or report to the closest Emergency Room. Call 911 if necessary. 05/28/25 0028 <Electronically signed by Bentley Salazar MD> Cosigner Signature (if applicable): CC: Dr. Bird Lujan MD ~ Signed [facility] Work Phone: 1(927) 348-339207-06-2025 Radiology Diagnostic study note [facility] Imaging Services [address] [place] [address] Abdomen/Pelvis W IV Cont ONLY MR#: [id number] Acct: [id number] Name: SANDY DENG Rep #: [id number] : 1960 F 64 From: Jose Brown MD PCP: Dr. Bird Lujan MD Status: REG ER Study:Abdomen/Pelvis W IV Cont ONLY Date of E xam: 05/08/25 Exam# [id number] Ordering Dr: Justin Lara DO PROCEDURE: ABDOMEN/PELVIS [...] The ovaries are not identified. There is freefluid in the pelvis. There is no inguinal [...] of ascites in the abdomen. There is increasedattenuation of the intra-abdominal retroperitoneal and subcutaneous fat. [...] 3. Other findings as noted. Reading Location: [id number] CC: Dr. Justin Parisi DO; Dr. Bird Lujan MD ~ Lithopress Operator: Signed [facility] Work Phone: 1(804) 772-942307-06-2025 Radiology Diagnostic study note [facility] Imaging Services [address] [place], [place] [address] Chest PA and Lateral MR#: [id number] Acct: [id number] Name: SANDY DENG Rep #: [id number] : 1960 F 64 From: Jose Brown MD PCP: Dr. Bird Lujan MD Status: REG ER Study:Chest PA and Lateral Date of Exam: 05/08/25 Exam# [id number] Ordering Dr: Justin Lara DO PROCEDURE: CHEST [...] catheter. 3. Left pleural effusion. Reading Location: [id number] CC: Dr. Justin Parisi DO; Dr. Bird Lujan MD ~ Lithopress Operator: Signed [facility] Work Phone: 1(832) 394-549006-07-2025 Discharge summary Author Milind Heath [facility] Note Date/Time April 09, 2025 1:43p m [facility] Medical Records Department [address] [place] [address] Emergency Department Summary 04/09/25 MR#: [id number] Acct: [id number] Name: SANDY DENG Rep #:[id number] : [...] She is seen by Dr. Huerta the teacher of the emotionally disturbed. She has history of end-stage renal disease [...] nodule, solitary Fissure in skin of foot Carlotta's sign present Tobacco abuse CKD (chronic kidney [...] Anxiety Depression Atherosclerosis of coronary artery of [place] heart without angina pectoris NSTEMI (non-ST elevated [...] denosumab 60 mg/mL subcutaneous 60 mg subcut [id number] bone health 06/10/24 07/09/24 Rx syringe (Prolia) [...] follows: Interpretation: Sinus Bradycardia (Rate is 52. Collins to the left. MS interval is 176 [...] on hemodialysis, Atherosclerosis of coronary artery of [place] heart without angina pectoris, Chronic obstructive pulmonary [...] Prolia 60 mg/mL syringe 60 mg subcut [id number] Qty: 1 1RF Patient Comments: Next injection [...] Care Provider] - 1 Week Print Language: Djib[place]ian Disposition Disposition: Home, Self Care What to do if you have Problems For any increased pain, shortness of breath, bleeding, nausea or vomiting, chestpain, or any unexpected problems, contact your Primary Care Provider. Call [facility] ([phone]) or report to the closest Emergency Room. Call 911 if necessary. 04/09/25 1343 <Electronically signed by Milind Heath MD> Cosigner Signature (if applicable): CC: Dr. Bird Lujan MD ~ Signed [facility] Work Phone: 1(231) 224-305905-20-2025 Evaluation note* Diagnosis Onset Date Resolution Status Admit Date AV fistula acute March 22, 2025 12:59pm Hypercarbia acute May 18 8:42am Lung nodule, multiple acute May 8:42am Chronic hypoxic respiratory failure chronic May 18, 2025 8:42am Chronic obstructive pulmonar y disease chronic May 18, 2025 8:42am ESRD on hemodialysis chronic May 18, 2025 8:42am Elevated troponin I level acute May 28, 2025 12:21am End stage renal disease acute J 2024 12:21am COPD exacerbation chronic May 282024 12:21am [facility] Work Phone: 1(925) 223-528405-20-2025 Evaluation note* Diagnosis Onset Date Resolution Status Admit Date AV fistula acute March 22, 2025 12:59pm Hypercarbia acute May 18 8:42am Lung nodule, multiple acute May 8:42am Chronic hypoxic respiratory failure chronic May 18, 2025 8:42am Chronic obstructive pulmonar y disease chronic May 18, 2025 8:42am ESRD on hemodialysis chronic May 18, 2025 8:42am Arteriovenous fistula stenosis acute May 28, 2025 12:21am Cachexia acute May 28 12:21am Dialysis AV fistula malfunction acut e May 28, 2025 12:21am Dyspnea acute May 28 12:21am Elevated troponin I level acute May 28, 2025 12:21am End stage renal disease acute J wiley 2024 12:21am Intermittent chest pain acute J wiley 2024 12:21am Lung nodule, multiple acute May 12:21am Atherosclerosis of coronary artery of [place] heart without angina pectoris chronic May 28, 2025 12:21am Chronic obstructive pulmonar y disease chronic May 28, 2025 12:21am COPD exacerbation chronic May 282024 12:21am DM type 1 (diabetes mellitus , type 1) chronic May 28, 2025 12:21am ESRD (end stage renal diseas e) on dialysis chronic May 28, 2025 12:21am Essential (primary) hypertension chr onic May 28, 2025 12:21am Hypertension chronic May 28, 025 12:21am [facility] Work Phone: 1(869) 472-323503-27-2025 Evaluation note* Diagnosis Onset Date Resolution Status Admit Date DM type 1 (diabetes mellitus , type 1) chronic January 27, 2025 8:40am High cholesterol chronic January 272024 8:40am Hypertension chronic January 27, 2025 8:40am Insulin pump titration chronic [facility] 2024 8:40am Osteoporosis chronic January 27, 2025 8:40am Presence of insulin pump chronic January 27, 2025 8:40am Vitamin D deficiency [facility] 2024 8:40am AV fistula acute March 22, 2025 12:59pm Hypercarbia acute May 18 8:42am Lung nodule, multiple acute May 8:42am Chronic hypoxic respiratory failure chronic May 18, 2025 8:42am Chronic obstructive pulmonar y disease chronic May 18, 2025 8:42am ESRD on hemodialysis chronic May 18, 2025 8:42am Hypertension chronic May 18, 025 8:42am [facility] Work Phone: 1(407) 624-702003-27-2025 Evaluation note* Diagnosis Onset Date Resolution Status Admit Date DM type 1 (diabetes mellitus , type 1) chronic January 27, 2025 8:40am High cholesterol chronic January 272024 8:40am Hypertension chronic January 27, 2025 8:40am Insulin pump titration chronic [facility] 2024 8:40am Osteoporosis chronic January 27, 2025 8:40am Presence of insulin pump chronic January 27, 2025 8:40am Vitamin D deficiency chronic [facility] 2024 8:40am AV fistula acute March 22, 2025 12:59pm Hypercarbia acute May 18 8:42am Lung nodule, multiple acute May 8:42am Chronic hypoxic respiratory failure chronic May 18, 2025 8:42am Chronic obstructive pulmonar y disease chronic May 18, 2025 8:42am ESRD on hemodialysis chronic May 18, 2025 8:42am [facility] Work Phone: 1(735) 989-320103-11-2025 Evaluation note* Diagnosis Onset Date Resolution Status Admit Date AV fistula acute January 11 2:55pm DM type 1 (diabetes mellitus , type 1) chronic January 27, 2025 8:40am High cholesterol chronic January 272024 8:40am Hypertension chronic January 27, 2025 8:40am Insulin pump titration chronic [facility] 2024 8:40am Osteoporosis chronic January 27, 2025 8:40am Presence of insulin pump chronic January 27, 2025 8:40am Vitamin D deficiency chronic [facility] 2024 8:40am AV fistula acute March 22, 2025 12:59pm [facility] Work Phone: 1(551) 228-283403-11-2025 Radiology Diagnostic study [facility]03-06-2025 [facility]03-03-2025 Note [facility]02-27-2025 Telephone encounter Note* Telephone Encounter - [place] James - 12/30/2024 11:00 AM EST Called and spoke with the patient in regards to kidney transplant referral, she states she started the process with [facility], and would like to go through the process at that center, as one center is enough to go through testings, and appointments. Advised the patient if she changes her mind, provided her with our office phone number, referral ended, and she verbalized understanding. [place] James [facility]02-27-2025 Miscellaneous Notes* Telephone Encounter - [place] James - 12/30/2024 11:00 AM EST Called and spoke with the patient in regards to kidney transplant referral, she states she started the process with [facility], and would like to go through the process at that center, as one center is enough to go through testings, and appointments. Advised the patient if she changes her mind, provided her with our office phone number, referral ended, and she verbalized understanding. [place] James [facility] Telephone encounter Note * Telephone Encounter - Otilia Portillo Tech - 12/29/2024 10:50 AM EST I spoke with Lita at [facility] who confirmed the patients demographic information and confirmed that the phone number that we have on file for the patient is incorrect. The correct phone number is [phone]. [facility]02-26-2025 Miscellaneous Notes* Telephone Encounter - Otilia Portillo Tech - 12/29/2024 10:50 AM EST I spoke with Lita at [facility] who confirmed the patients demographic information and confirmed that the phone number that we have on file for the patient is incorrect. The correct phone number is [phone]. documented in [facility] encounterAd[facility]2025 [facility]02-21-2025 Telephone encounter Note* Telephone Encounter - [place] James - 12/24/2024 1:28 PM EST Called Sandy Deng without success regarding referral. Voicemail message was left for patient to call our office. [place] James [facility]02-21-2025 Miscellaneous Notes* Telephone Encounter - [place] James - 12/24/2024 1:28 PM EST Called Sandy Deng without success regarding referral. Voicemail message was left for patient to call our office. [place] James documented in [facility]Ad[facility] Evaluation note* Diagnosis Onset Date Resolution Status Admit Date Atherosclerosis of coronary artery of [place] heart without angina pectoris chronic December 16 [...] January 03, 2025 11:39pm Parapneumonic effusion acute [facility] 2024 11:39pm Pleural effusion [...] 27, 2025 8:40am Insulin pump titration chronic [facility] 2024 8:40am Osteoporosis chronic January 27, 2025 8:40am Presence of insulin pump chronic January 27, 2025 8:40am Vitamin D deficiency chronic [facility] 2024 8:40am AV fistula acute March 22, 2025 12:59pm [facility] Work Phone: 1(800) 547-862001-30-2025 Evaluation note* Diagnosis Onset Date Resolution Status Admit Date ESRD (end stage renal diseas e) on dialysis chronic December 02 2:26pm Atherosclerosis of coronary artery of [place] heart without angina pectoris chronic December 16, [...] January 03, 2025 11:39pm Parapneumonic effusion acute [facility] 2024 11:39pm Pleural effusion [...] 27, 2025 8:40am Insulin pump titration chronic [facility] 2024 8:40am Osteoporosis chronic January 27, 2025 8:40am Presence of insulin pump chronic January 27, 2025 8:40am Vitamin D deficiency chronic [facility] 2024 8:40am [facility] Work Phone: 1(610) 626-604612-05-2024 Evaluation note* Diagnosis Onset Date Resolution Status [...] November 04 3:09pm ESRD on hemodialysis chronic [place]2024 3:09pm Hypertension chronic November 04, 2024 3:09pm ESRD (end stage renal diseas e) on dialysis chronic December 02 2:26pm Atherosclerosis of coronary artery of [place] heart without angina pectoris chronic December 16, [...] January 03, 2025 11:39pm Parapneumonic effusion acute [facility] 2024 11:39pm Pleural effusion on left acute January 03, 2025 11:39pm COPD exacerbation chronic January 032024 11:39pm DM type 1 (diabetes mellitus , type 1) chronic January 03, 2025 11:39pm Hypertension chronic January 03 025 11:39pm Acute hyperkalemia resolved January 03, 2025 11:39pm Chronic hypoxemic respirator y failure resolved January 03, 2025 11:39pm AV fistula acute January 11 2:55pm [facility] Work Phone: 1(143) 975-307810-29-2024 History of Present illness Narrative* Tami Alfredo, SYED - BUILDING SERVICEMAN - 08/31/2024 1:43 PM EDT Patient seen by me at [facility]. Complete documentation including history with assessment and plan were documented in [facility] EMR. This encounter is for billing only. documented in this encounterSParma Community General [id number] History of Present illness Narrative* SYED Buck CNP - 08/27/2024 1:11 PM EDT Patient seen by me at [facility]. Complete documentation including history with assessment and plan were documented in [facility] EMR. This encounter is for billing only. documented in this encounterSParma Community General [id number] History of Present illness Narrative* SYED Buck CNP - 08/25/2024 4:04 PM EDT Patient seen by me at [facility]. Complete documentation including history with assessment and plan were documented in [facility] EMR. This encounter is for billing only. documented in this [facility]10-22-2024 Miscellaneous Notes* Care Coordination - SAPNA Ibarra - 08/24/2024 2:22 PM EDT Requested to arrange transport back to [facility]. Met with patient and spouse- patient ok with ambulette. Set up for 3:30 with roundtrip, lavern card accepted the trip. Cost provided to patient 51.80-59.80. Updated patient ,spouse-BO Garcia. Director Of Regulatory Affairs, Carmelina with [facility] and [facility]. * Care Coordination - Kimberlee Valdovinos - 08/24/2024 12:45 PM EDT Discharge med list transmitted to REHAB- [facility] for return via Careport per TCC request. * Care Coordination - Jesi Bach RN - 08/24/2024 12:38 PM EDT Auth obtained for [facility]. SW messaged to set up transport, SUBWAY CAR REPAIRER messaged to send orders and MAR. * [...] RN - 08/23/2024 1:19 PM EDT Per [facility] liaison Carmelina, will re-submit for MMO [...] EDT Care Management Progress Note Discharge Plan: [facility] This dealer relationship manager was tasked to follow this patient through the weekend assisting with dischargeplanning. Chart was reviewed. Messaged [facility] Liaison through secure chat to clarify auth status. Plan is to resubmit auth when patient is stable. Therapy see today request placed in [facility] for PT/OT updated notes to be [...] at baseline and stable to transfer to F. PT/OT recommending IPR. Confirmed with Lotteries Agent Carmelina that Insurance Authorization started for [facility] this am. Will await authorization [...] at baseline and stable for transfer to [facility]. Discharge plan [facility]. Requested PT/OT evaluation today if possible to start insurance auth for return. Length of Stay (Days): 5 GMLOS: No GMLOS Documented * Care Coordination - Alanna Silva RN - 08/16/2024 12:33 PM EDT Care Management Progress Note Patient remains on T3 ICU, pending F transfer - medically stable for F. PT/OT evals pending. Patient is from [facility]. DCP- return vs SNF vs home with [facility], dc planning on going. CM to follow. [...] EDT SW coverage for today. Pt from [facility]. SW received SDNV consult due to pt being unable to answer any questions upon admission due to altered mental status. SW following along with T[facility]. * Care Coordination - Amira Stark - 08/13/2024 10:20 AM EDT Return referral placed to [facility] via Careport per TCC request. Await review and response regarding ability to accept. [facility] notified. * Care Coordination - An Werner RN - 08/13/2024 9:56 AM EDT Care Managment Initial Assessment Date: 08/13/2024 Patient Name: Sandy Deng : 1960 Patient Information Source of Information: Patient Securities Supervisor Name/Contact Information: Jose at the bedside. Cognition/Language: Impaired Permission given to speak with patient outside industrial sales representative/caregiver as indicated: Yes Confirmation of Payer with patient/family: Yes Payer Name: [facility] [place]: No Confirmation of Primary Care Physician: Confirmed PCP Name: Dr. Bird Lujan Seen in last 2 years?: Yes Primary Caregiver: Self If assistance needed, confirmed caregiver ready, willing and able to care for patient at discharge:Yes Confirmed with: Jose Deng Living Arrangements Current Residence: House Number of Floors 2 (Lives on the first level.) Number of Entry Steps: 3 Bed/Bath Levels: Facility: Inpatient Rehab Facility Facility Name: [facility] Plan to Return: Yes Lives with: [...] Transportation/Shopping: Assistance Provider Transportation/Shopping Assistance Provider Name: Victor Manuel drives due to poor eyesight. Transportation Mode: Car Needs Assistance with Transportation at Discharge: No Meal Preparation: Independent Laundry/Cleaning: Independent Finances/Bill Paying: Independent Communication: Independent Types of Care Services/Equipment Utilized Care Services: Dialysis Type: NA Durable Medical Equipment: Oxygen (Continuous or prn) Oxygen Flow Rate: 3L continuous DME Provider: Judy Patient's Goal/Discharge Plan Patient expects to be discharged to: Return to [facility] to complete rehab. Discharge Planning Actions: Continue to follow Patient's Choice Rights and [employer] and Collaborative Relationships Disclosed as Indicated for Post-Acute Care: Interdisciplinary Team Engagement: Acute Rehab Social Work Referral for: Additional Information: Patient admitted to T3 from [facility] for Altered Mental Status. Confirmed at the bedside with Jose Deng that patient is from [facility] and that the discharge plan if for her to return. Referral placed in [facility]. Patient is currently on continuous EEG [...] improving Outcome: Not Progressing documented in this [facility]10-22-2024 [facility] 08-24-2024 Hospital course Narrative* William Jarrett [...] , and T1DM who was managed at [facility] from 08/12/24-08/24/24 for acute on chronic hypoxic and hypercapnic respiratory failure. Of note, patient was admitted from [facility] recent hospital admission from 07/26/24-08/10/24 when she was managed in the ICU for septic shock/subdural hematoma. While at [facility], patient experienced altered mental status and was found hypoxic in the 80's. She was managed in the ICU with NIV and brought to the general medical floor. While on the [facility], patient experienced AMS likely due to CO2 narcosis and was brought back to the ICU on NIV. She was stabilzed with improved mentation and ultimately was transferred back to the [facility] and strongly urged to use BiPap at night. She is currently AAOx3 after wearing the Bipap overnight, and is on 4 L of oxygen at 100%. She was ultimately stable upon discharge to [facility]. Disposition: Acute Rehab Activity: up with [...] Breztri Aerosphere 160-9-4.8 MCG/ACT aerosol Generic drug: Vwardfl-Jsrzepsgygg-Srayarrbuh busPIRone 7.5 MG tablet Commonly known as: [...] Commonly known as: Nitrostat * Omnipod 5 ZgrH0I5 Intro Gen 5 kit * Omnipod 5 UkjZ4T1 Pods Gen 5 misc Prolia 60 MG/ML solution prefilled syringe Generic drug: denosumab simvastatin 40 MG tablet Commonly known as: Zocor SPS 15 GM/60ML suspension Generic drug: sodium polystyrene Trelegy Ellipta 200-62.5-25 MCG/ACT aerosol powder Generic drug: Wbthtohxhis-Gihnezefd-Ryijxy * This list has 2 medication(s) that [...] 08/24/2024 1:33 PM EDT documented in this [facility]10-22-2024 History of Present illness Narrative* William Jrarett DO - 08/24/2024 11:13 AM EDT Med [...] so no tx. Plan transfer back to [facility] when arrangements in place. 31 (Discharge 11322) minutes spent qijk-ub-fqvu/floor time coordinating care and/or counseling patient. Savita Denise MD * Joni Monson MD - 08/23/2024 11:24 AM EDT Images from the original note were not included. Nephrology Progress Note Patient: Sandy Deng Room number: [id number] A Date of Admit: 08/12/2024 LOS: 11 days Referring physician: Kemar Adames DO Outpatient Bench Loom Weaver: Christy Huerta Assessment/Plan: Mrs. Sandy Deng is a 63 year old female with PMH of CKD 4, DM type 1, HTN, CAD, COPD (3L [id number]), initially presenting with resp distress and delirium, Covid positive. Also found to havepseudomonas and staph aures PNA. She was intubated, now extubated. CT head showed a small right SDH. Consulted for UMA on CKD 4 - follows with Dr Christy Huerta ([place]). On review of available labs,Cr has been 2.4-2.8, last (04/26) Cr 2.4 eGFR 20, 24 hr skdbfum=1451 mg. On admit, (07/26) Cr 4.56, CRRT [...] on BiPAP at night -dispo: looking for [facility] Will follow along as directed. Thank you for allowing us to participate in the care of this patient. Joni Monson MD Located Within [facility] ([facility]) Office phone: [phone] Office fax: [phone] 08/23/2024 Subjective Patient seen this am, spouse [...] 0314 08/21/24 0825 08/21/24 1432 08/22/24 0643 08/23/24 0314 WBC 6.2 -- -- 4.8 4.4 HGB 9.9* < > 10.2 8.6* 8.2* HCT 30.6* -- -- 26.6* 25.5* MCV 91.3 -- -- 92.0 89.8 PLT 157 -- -- 161 167 < > = values in this interval not displayed. Recent Labs 08/21/24 0314 08/21/24 0946 08/22/24 0643 08/23/244 NA 133* -- 130* 130* K 3.2* [...] PO (chewing/swallowing) however monitor acute need for BAGGAGE PORTER HEAD eval. Per MNT protocol will add 2PM [...] ? loss at baseline such as in confucianism, clavicle, etc (muscle)) Fluid Accumulation: No significant fluid accumulation (per chart) (BUE pitting, BLE non-pitting perflowsheets) Surgical Technician Strength: Not Performed Nutrition Assessment: Pt with [...] (pt was d/c 08/10, initially presented to [facility] 07/23 w/ acute resp distress and [...] removed 2.3L; pt stable for transfer to [facility] after being treated for septic shcok [...] admit --> 07/28/24: 134# bedscale, 08/07/24:126# bedscale) [place] Body Weight (lbs) (Calculated): 130 lbs [place] Body Weight (Kg) (Calculated): 59 kg % [place] Body Weight (Calculated): 83.1 % BMI (kg/m2) [...] Renae Squires RD Contact: Secure chat or *[phone] * Shanti Bianchi NP - 08/23/2024 9:26 AM EDT Images from the original note were not included. [facility] Wound Care Progress Note Sandy Deng AGE: [...] tablet by mouth 2 times daily. Cholecalciferol ([facility] Vitamin D3) 25 MCG (1000 [...] at 08/23/2024 4:45 PM EDT * Khai Espana, - 08/23/2024 9:00 AM EDT Med Team [...] not being treated; urology consulted. 35 (Subsequent 63655) minutes spent nkga-dx-jdrb/floor time coordinating care and/or counseling patient. Savita [...] (3 days 10mg, 3 days 5mg) Anticipated [place] Medications (ICU initiated) or Dose Changes and [...] original note were not included. OCCUPATIONAL THERAPY [facility] Treatment Note Name/MRN: Sandy Deng ([id number]) Date of : 1960 Age: 63 y.o. Room/Bed: T3-304/T3-304 A Discharge Recommendation: IP Rehab Other: Continue to assess pending progress. Prior Level of Function Prior Level of ADL Function: Independent Prior Level of Mobility: Independent; Device: Front wheeled walker Prior Level of Transfers: Independent [facility], information of independent is baseline prior [...] original note were not included. PHYSICAL THERAPY [facility] Re-Evaluation Name/MRN: Sandy Deng ([id number]) Evaluation Date: 08/22/2024 Date of : 1960 Admission Date: 08/12/2024 12:53 PM Age: 63 y.o. Room/Bed: T3304/[facility] A Discharge Recommendation: IP Rehab Equipment Needed: [...] Diagnosis Date COPD (chronic obstructive pulmonary disease) ([facility]) Diabetic neuropathy ([facility]) Hyperlipidemia Myocardial infarct ([facility]) Stage 4 chronic kidney disease (HCC) Type 1 diabetes ([facility]) Past Surgical History: Past Surgical History: Procedure Laterality Date CORONARY ANGIOPLASTY WITH STENT PLACEMENT CORONARY ANGIOPLASTY WITH STENT PLACEMENT Admission Diagnosis: Patient Active Problem List Diagnosis Date Noted Anxiety disorder due to medical condition 08/12/2024 Atherosclerosis of coronary artery 08/12/2024 Chest pain 08/12/2024 Chronic constipation 08/12/2024 Cigarette smoker 08/12/2024 Carlotta's sign present 08/12/2024 Depressive disorder 08/12/2024 Diabetic polyneuropathy (CMS/HCC) ([facility]) 08/12/2024 Dizziness 08/12/2024 Gastroparesis 08/12/2024 Hypoglycemia 08/12/2024 Injury of kidney 08/12/2024 Intermittent palpitations 08/12/2024 Intractable vomiting with nausea 08/12/2024 Respiratory failure with hypoxia ([facility]) 08/12/2024 Skin lesion of foot 08/12/2024 Hypercapnic respiratory failure ([facility]) 08/12/2024 SDH (subdural hematoma) ([facility]) 07/26/2024 COPD (chronic obstructive pulmonary disease) ([facility]) 07/26/2024 Type 1 diabetes mellitus with kidney complication ([facility]) 07/26/2024 Myocardial infarction ([facility]) 07/26/2024 Hyperlipidemia 07/26/2024 Diabetic neuropathy associated with type 1 diabetes mellitus ([facility]) 07/26/2024 Stage 4 chronic kidney disease ([facility]) 07/26/2024 Acute renal failure ([facility]) 07/26/2024 Anemia 07/26/2024 Hypocalcemia 07/26/2024 Multiple pulmonary nodules 05/17/2024 Underweight 04/14/2024 Solitary pulmonary nodule 02/06/2024 Wheezing 10/29/2023 History of coronary artery stent placement 02/04/2018 Nicotine dependence 01/08/2017 Hypertension 01/08/2017 Diabetic ketoacidosis (CMS/HCC) ([facility]) 12/30/2012 Medical Precautions: No active isolations Proper [...] Responsibilities: Independent Receives Help From: Spouse Active Auto Specialty Services Manager: N/A Prior Level of Function Prior Level [...] of Care supervision is transferred to a [facility] Physical Therapist. Goals and/or [...] Normal [] Scar/Lesion/Mass Inspection of teeth/lips/gums Dentition: [][place]aw Teeth []Dentures Lips/Gums: [x]Intact []Lesion Present Mucosa: [x]Yaurel []Moist []Dry Neck: External Appearance Overall Appearance: [...] PHOS 3.8 4.1 3.5 LFTs: Recent Labs 08/21/249 BILIRUBINU Negative Glucose: Recent Labs 08/19/24 0550 [...] this interval not displayed. ABGs: Recent Labs 08/20/24212008/21/24 0825 08/21/24 1432 PHART 7.274* 7.286* 7.373 UXA4CGX 59.2* 59.5* 51.3* PO2ART 113.3* 88.7 85.9 WMB3UMB 26.8* 27.7* 29.2* W4CXGZWO 40% Oxygen CPAP CPAP Lactic Acid: No [...] DVT Prophylaxis: Heparin subcutaneous Disposition: Transfer to [facility] Cosigned by Kemar Adames DO at 08/22/2024 3:38 PM EDT Associated attestation - Kemar Adames DO - 08/22/2024 3:38 PM EDT I have personally performed a pclo-lm-hthp diagnostic evaluation on this patient on date of dqvggyo23/20/24. History, labs, imaging studies, and electronic medical record have been reviewed by me. This note documented by the []Critical Care Fellow [x]seasonal warehouse associate []TONJA reflects my history, exam, and medical [...] days Referring physician: Savita Denise MD Outpatient Bench Loom Weaver: Christy Huerta Assessment/Plan: Mrs. Sandy Deng is a 63 year old female with PMH of CKD 4, DM type 1, HTN, CAD, COPD (3L E3qeizybvn), initially presenting with resp distress and delirium, Covid positive. Also found to havepseudomonas and staph aures PNA. She was intubated, now extubated. CT head showed a small right SDH. Consulted for UMA on CKD 4 - follows with Dr Christy Huerta ([place]). On review of available labs,Cr has been 2.4-2.8, last (04/26) Cr 2.4 eGFR 20, 24 hr vwbnbjx=7250 mg. On admit, (07/26) Cr 4.56, CRRT [...] care of this patient. Karyn Jones MD Located Within [facility] ([facility]) Pager [phone] Office phone: [phone] Office fax: [phone] 08/21/2024 Subjective Patient seen this am. She [...] rash LABS: Recent Labs 08/19/24 0550 08/20/24 0508/20/24 1024 08/20/24 2121 08/21/24 0314 08/21/24 0825 [...] -- 97* 99 -- CO2 28 -- -- BUN 28* -- 41* 47* -- [...] transferred out of ICU, declined to wear BiPAP.Drbrennan evaluation patient was somnolent and lethargic but [...] Inspection of teeth/lips/gums (NIV mask inplace)_ Dentition: [][place] Teeth []Dentures Lips/Gums: []Intact []Lesion Present Mucosa: []Yaurel []Moist []Dry Neck: External Appearance Overall Appearance: [...] 0550 08/20/24 0522 08/20/24 1024 08/20/24 1558 08/20/24212008/21/244 WBC 4.0 5.8 -- -- -- 6.2 [...] 08/20/24 1558 08/20/242120 PHART 7.244* 7.242* 7.274* MFZ6XCD 68.4* 67.9* 59.2* PO2ART 36.2* 101.2* 113.3* UIQ0GRJ 28.9* 28.6* 26.8* K5ZVYKTD Bi-PAP 40% Oxygen 40% Oxygen Lactic Acid: [...] PM EDT I have personally performed a meau-jf-dxbj diagnostic evaluation on this patient on date of eldjweg81/19/24. History, labs, imaging studies, and electronic medical record have been reviewed by me. This note documented by the []Critical Care Fellow [x]seasonal warehouse associate []TONJA reflects my history, exam, and medical [...] days Referring physician: Savita Denise MD Outpatient Bench Loom Weaver: Christy Huerta Assessment/Plan: Mrs. Sandy Deng is a 63 year old female with PMH of CKD 4, DM type 1, HTN, CAD, COPD (3L C4wuzjbjsj), initially presenting with resp distress and delirium, Covid positive. Also found to havepseudomonas and staph aures PNA. She was intubated, now extubated. CT head showed a small right SDH. Consulted for UMA on CKD 4 - follows with Dr Christy Huerta ([place]). On review of available labs,Cr has been 2.4-2.8, last (04/26) Cr 2.4 eGFR 20, 24 hr lizcqxk=3746 mg. On admit, (07/26) Cr 4.56, CRRT [...] be covering this weekend. Joni Monson MD Located Within [facility] ([facility] Office phone: [phone] Office fax: [phone] 08/20/2024 Subjective Patient seen this am, spouse [...] pleural effusions. * Sherri Domingo APRN - SUSAN - 08/20/2024 8:33 AM EDT Images from the original note were not included. [facility] Wound Care Progress Note Sandy Deng AGE: [...] tablet by mouth 2 times daily. Cholecalciferol ([facility] Vitamin D3) 25 MCG (1000 UT) chewable tablet Chew. clopidogrel (Plavix) 75 MG tablet Take 1 tablet by mouth daily. Continuous Glucose Sensor (Dexcom G6 Sensor) [facility] Continuous Glucose Transmitter (Dexcom G6 transmitter) [facility] fluticasone (Flonase) 50 [...] prep barrier wipe daily and PRN, leave INSTRUCTOR TECHNICAL TRAINING Nutritional support Wound Care to follow Recommend to follow up at [facility] wound care center after hospital [...] Daily, Janell Booker MD, 75 mg at 08/19/2421 dextrose 5 % infusion, 100 mL/hr, IntraVENous, PRN, Janell Booker MD dextrose 50 % solution 12.5 g, 12.5 g, IntraVENous, PRN, Janell Booker MD, 12.5 g at 08/20/24 0834 fluticasone (Flonase) nasal spray 2 spray, 2 spray, Each Nostril, Daily, Janell Booker MD, 2 sprayat 08/19/24 09 gabapentin (Neurontin) capsule 200 mg, 200 mg, Oral, BID, Janell Booker MD, 200 mg at 08/19/24 213 glucagon (human recombinant) injection 1 mg, 1 [...] TID WC, Janell Booker MD,2 Units at 08/19/241844 Insulin Lispro (Humalog) injection 6 Units, 6 [...] Janell Booker MD, 25 mg at 08/19/24 2131 senna-docusate sodium (Senokot-S) 8.6-50 MG tablet 2 tablet, 2 tablet, Oral, Daily PRN, Janell Booker MD sodium chloride (Triplett) 0.65 % nasal spray 1 spray, 1 [...] would like to meet with SW or gearcase assembler to discuss insurance coverage for dialysis before [...] use BiPAP overnight. Pulmonary following. 35 (Subsequent 74622) minutes spent vfhz-bo-mgtj/floor time coordinating care and/or counseling patient. Savita Denise MD * Joni Monson MD - 08/19/2024 3:19 PM EDT Images from the original note were not included. Nephrology Progress Note Patient: Sandy Deng Room number: [id number] A Date of Admit: 08/12/2024 LOS: 7 days Referring physician: Kemar Adames DO Outpatient Bench Loom Weaver: Christy Huerta Assessment/Plan: Mrs. Sandy Deng is a 63 year old female with PMH of CKD 4, DM type 1, HTN, CAD, COPD (3L G9iwcqkrip), initially presenting with resp distress and delirium, Covid positive. Also found to havepseudomonas and staph aures PNA. She was intubated, now extubated. CT head showed a small right SDH. Consulted for UMA on CKD 4 - follows with Dr Christy Huerta ([place]). On review of available labs,Cr has been 2.4-2.8, last (04/26) Cr 2.4 eGFR 20, 24 hr nercncb=2807 mg. On admit, (07/26) Cr 4.56, CRRT [...] in the care of this patient. Joni Monsno MD Located Within [facility] ([facility] Office phone: [phone] Office fax: [phone] 08/19/2024 Subjective Patient seen this am afternoon. [...] Systems: As above Physical Exam: Vitals: 08/18/24 2034 08/19/24 0531 08/19/24 0749 08/19/24 1100 BP: 141/63 BP Location: Left arm Patient Position: Lying Pulse: 71 69 63 70 Resp: Temp: 36 C (96.8 F) TempSrc: Temporal [...] hours ending 08/19/24 1519 [REMOVED] Urethral Catheter Kpbsmfmu-oxi-Wpoayu (mL): 25 mL FIO2 needs: on 4 [...] and dry, no rash LABS: Recent Labs 08/17/24 0223 08/18/24 0417 08/19/24 0550 WBC 4.5 4.5 4.0 HGB 9.1* 9.2* 9.3* HCT 28.7* 29.1* 29.5* MCV 91.7 92.1 93.1 PLT 105* 111* 114* Recent Labs 08/17/24 0223 08/18/24 0417 08/19/24 0550 08/19/24 0806 NA 132* 130* 126* [...] original note were not included. PHYSICAL THERAPY [facility] Treatment Note Name/MRN: Sandy Deng ([id number]) Date of : 1960 Age: 63 y.o. [...] time needed with all mobility and very [place].Noted wet, non-productive cough and tends to fatigue [...] aspiration issues 5 Hx of CAD 6 UAM/CKD currently on HD 7 right SDH 8 [...] within last 24 hours- BMP: Recent Labs 08/17/2422208/18/24 0417 08/19/24 0550 NA 132* 130* 126* [...] the last 72 hours. CBC: Recent Labs 08/17/2422208/18/247 08/19/24 0550 WBC 4.5 4.5 4.0 HGB [...] day, Janell Booker MD, 5,000Units at 08/19/24 0920 insulin glargine (Lantus) injection 10 Units, 10 Units, SubCUTAneous, Nightly, William Jarrett DO Insulin Lispro (Humalog) injection 0-12 Units, 0-12 Units, SubCUTAneous, TID WC, Janell Booker MD,12 Units at 08/19/24 1406 Insulin Lispro (Humalog) injection 8 Units, 8 Units, SubCUTAneous, TID WC, William Jarrett, , 8 Unitsat 08/19/24 1405 ipratropium-albuterol (Duo-Neb) 0.5-2.5 [...] Daily PRN, Janell Booker MD sodium chloride (Triplett) 0.65 % nasal spray 1 spray, 1 [...] Marie Deng : 1960(63 y.o.) Date: August 19, [...] would like to meet with SW or gearcase assembler to discuss insurance coverage for dialysis before [...] PT and OT recommended IPR on discharge. exploration manager following Cosigned by Savita Denise MD [...] as directed by pulmonary service. 35 (Subsequent 87563) minutes spent uzjv-rl-zzta/floor time coordinating care and/or counseling patient. Savita [...] this time. Continue to monitor need for BAGGAGE PORTER HEAD assessment given rec ent recommendations. 2. Will [...] flowsheets) (BUE pitting, BLE non-pitting per flowsheets) Surgical Technician Strength: Not Performed Nutrition Assessment: pt with previously reviewed PMH who remains admitted to the ICU after she initially presented to [facility] ED on 08/12/24 in respiratory distress, pt was d/c to [facility] following admit and was found with altered mentation, NC was taken off and pulse ox was 80%, pt was brought to [facility] ED for assessment, in theED mental [...] yesterday with recs to d/c back to [facility], wound care following due to left 4th toe abrasion, noted pt has been deemed stable for transfer to [facility] since 08/14. In terms of nutrition [...] prior to d/c, per paper chart at [facility] pt was receiving a Soft and Bite [...] admit --> 07/28/24: 134# bedscale, 08/07/24:126# bedscale) [place] Body Weight (lbs) (Calculated): 130 lbs [place] Body Weight (Kg) (Calculated): 59 kg % [place] Body Weight (Calculated): 83.1 % BMI (kg/m2) [...] determine Lidia Rojas RD Contact: available via [employer] or *[phone] * Joni Monson MD - 08/18/2024 12:55 PM EDT Images from the original note were not included. Nephrology Progress Note Patient: Sandy Deng Room number: T3-321/T3321 A Date of Admit: 08/12/2024 LOS: 6 days Referring physician: Kemar Adames DO Outpatient Bench Loom Weaver: Christy Huerta Assessment/Plan: Mrs. Sandy Deng is a 63 year old female with PMH of CKD 4, DM type 1, HTN, CAD, COPD (3L A0bigbczez), initially presenting with resp distress and delirium, Covid positive. Also found to havepseudomonas and staph aures PNA. She was intubated, now extubated. CT head showed a small right SDH. Consulted for UMA on CKD 4 - follows with Dr Christy Huerta ([place]). On review of available labs,Cr has been 2.4-2.8, last (04/26) Cr 2.4 eGFR 20, 24 hr coqbbhy=5705 mg. On admit, (07/26) Cr 4.56, CRRT [...] discussed with primary team. Joni Monson MD Located Within [facility] ([facility]) Office phone: [phone] Office fax: [phone] 08/18/2024 Subjective Patient seen this am during [...] ml Net -3250 ml [REMOVED] Urethral Catheter Odxldimj-kot-Hxdwvn (mL): 25 mL FIO2 needs: on 4 [...] with small pleural effusions. * Mayra Almeida, STADIUM MANAGER - BUILDING SERVICEMAN - 08/18/2024 12:05 PM EDT Images from the original note were not included. [facility] Wound Care PROGRESS Note Sandy Deng AGE: [...] tablet by mouth 2 times daily. Cholecalciferol ([facility] Vitamin D3) 25 MCG (1000 [...] prep barrier wipe daily and PRN, leave INSTRUCTOR TECHNICAL TRAINING Nutritional support Wound Care to follow Recommend to follow up at [facility] after hospital [...] and subdural hematoma who presents to the [facility] respiratory distress. Patient had been recently discharged 2 days prior to [facility], and was found altered, nasal [...] Normal [] Scar/Lesion/Mass Inspection of teeth/lips/gums Dentition: [x]Choctaw Teeth []Dentures Lips/Gums: [x]Intact []Lesion Present Mucosa: [x]Yaurel (noted dry blood in mouth) []Moist [x]Dry [...] within last 24 hours- BMP: Recent Labs 08/16/24 0339 08/17/24 0223 08/18/24 [...] 0223 08/17/24 0833 08/17/24 1133 08/17/24 1635 08/17/24202008/18/24 041 GLUCOSE 362* -- -- -- -- 152* [...] 15.7* ABGs: No results for input(s): PHART, LLL0TTO, PO2ART, ERQ9DMM, SO2ART, V3VADRML in thelast 72 hours. Lactic Acid: No [...] and OT recommended IPR on discharge, contacted gearcase assembler for prior auth timeline for discharge to [facility] Spoke with pt who would like to meet with SW or gearcase assembler to discuss insurance coverage for dialysis before pt is discharged from hospital. Encourage ambulation GI Prophylaxis: Pantoprazole PO DVT Prophylaxis: Heparin subcutaneous Disposition: Transfer to [facility], insurance auth started yesterday for [facility], expect it to take 2-3 days Cosigned by Kemar Adames DO at 08/18/2024 8:23 PM EDT Associated attestation - Kemra Adames DO - 08/18/2024 8:23 PM EDT I have personally performed a yyso-lm-zorc diagnostic evaluation on this patient on date of bntobpl03/16/24. History, labs, imaging studies, and electronic medical record have been reviewed by me. This note documented by the []Critical Care Fellow [x]seasonal warehouse associate []TONJA reflects my history, exam, and medical [...] original note were not included. PHYSICAL THERAPY [facility] Initial Evaluation Name/MRN: Sandy Deng ([id number]) Evaluation Date: 08/17/2024 Date of : 1960 [...] tasks. Pt present and states pt at [facility] IPR for one night and had respiratory event. Was not seen for therapies there yet but plan to go back for continued therapies. Pain: Pt denies any current pain. Past Medical History: Past Medical History: Diagnosis Date COPD (chronic obstructive pulmonary disease) (HCC) Diabetic neuropathy (HCC) Hyperlipidemia Myocardial infarct ([facility]) Stage 4 chronic kidney disease (HCC) Type 1 diabetes ([facility]) Past Surgical History: Past Surgical History: Procedure Laterality Date CORONARY ANGIOPLASTY WITH STENT PLACEMENT CORONARY ANGIOPLASTY WITH STENT PLACEMENT Admission Diagnosis: Patient Active Problem List Diagnosis Date Noted Anxiety disorder due to medical condition 08/12/2024 Atherosclerosis of coronary artery 08/12/2024 Chest pain 08/12/2024 Chronic constipation 08/12/2024 Cigarette smoker 08/12/2024 Carlotta's sign present 08/12/2024 Depressive disorder 08/12/2024 Diabetic polyneuropathy (CMS/HCC) ([facility]) 08/12/2024 Dizziness 08/12/2024 Gastroparesis 08/12/2024 Hypoglycemia 08/12/2024 Injury of kidney 08/12/2024 Intermittent palpitations 08/12/2024 Intractable vomiting with nausea 08/12/2024 Respiratory failure with hypoxia ([facility]) 08/12/2024 Skin lesion of foot 08/12/2024 Hypercapnic respiratory failure ([facility]) 08/12/2024 SDH (subdural hematoma) ([facility]) 07/26/2024 COPD (chronic obstructive pulmonary disease) ([facility]) 07/26/2024 Type 1 diabetes mellitus with kidney complication ([facility]) 07/26/2024 Myocardial infarction ([facility]) 07/26/2024 Hyperlipidemia 07/26/2024 Diabetic neuropathy associated with type 1 diabetes mellitus ([facility]) 07/26/2024 Stage 4 chronic kidney disease ([facility]) 07/26/2024 Acute renal failure ([facility]) 07/26/2024 Anemia 07/26/2024 Hypocalcemia 07/26/2024 Multiple pulmonary nodules 05/17/2024 Underweight 04/14/2024 Solitary pulmonary nodule 02/06/2024 Wheezing 10/29/2023 History of coronary artery stent placement 02/04/2018 Nicotine dependence 01/08/2017 Hypertension 01/08/2017 Diabetic ketoacidosis (CMS/HCC) ([facility]) 12/30/2012 Medical Precautions: No active isolations Proper [...] Responsibilities: Independent Receives Help From: Spouse Active Auto Specialty Services Manager: N/A Prior Level of Function Prior Level [...] of Care supervision is transferred to a [facility] Physical Therapist. Goals and/or treatment plan was established in collaboration with patient/family/other representatives. Cosigned by Maranda Greer PT at 08/17/2024 3:14 PM EDT * Jamey Muro OT - 08/17/2024 10:28 AM EDT Images from the original note were not included. OCCUPATIONAL THERAPY [facility] Initial Evaluation Name/MRN: Sandy Deng ([id number]) Evaluation Date: 08/17/2024 Date of : 1960 Admission Date: 08/12/2024 12:53 PM Age: 63 y.o. Room/Bed: T3-321/T3-321 A Discharge Recommendation: IP Rehab Other: Continue to assess pending progress. Assessment IMPRESSION: Pt presented with respiratory failure, hypoxia, and AMS upon admission. Pt had recent hospital admission for septic shock and subdural hematoma, pt went to [facility] for 2 days and thenended up in ER for this admission. Pt is independent prior to first admission and requires assistance prior to this admission at [facility]. Per pt and , therapy only [...] Diagnosis Date COPD (chronic obstructive pulmonary disease) ([facility]) Diabetic neuropathy ([facility]) Hyperlipidemia Myocardial infarct ([facility]) Stage 4 chronic kidney disease ([facility]) Type 1 diabetes ([facility]) Past Surgical History: Past Surgical History: Procedure Laterality Date CORONARY ANGIOPLASTY WITH STENT PLACEMENT CORONARY ANGIOPLASTY WITH STENT PLACEMENT Admission Diagnosis: Patient Active Problem List Diagnosis Date Noted Anxiety disorder due to medical condition 08/12/2024 Atherosclerosis of coronary artery 08/12/2024 Chest pain 08/12/2024 Chronic constipation 08/12/2024 Cigarette smoker 08/12/2024 Adrian's sign present 08/12/2024 Depressive disorder 08/12/2024 Diabetic polyneuropathy (CMS/HCC) ([facility]) 08/12/2024 Dizziness 08/12/2024 Gastroparesis 08/12/2024 Hypoglycemia 08/12/2024 Injury of kidney 08/12/2024 Intermittent palpitations 08/12/2024 Intractable vomiting with nausea 08/12/2024 Respiratory failure with hypoxia ([facility]) 08/12/2024 Skin lesion of foot 08/12/2024 Hypercapnic respiratory failure ([facility]) 08/12/2024 SDH (subdural hematoma) ([facility]) 07/26/2024 COPD (chronic obstructive pulmonary disease) ([facility]) 07/26/2024 Type 1 diabetes mellitus with kidney [...] Nicotine dependence 01/08/2017 Hypertension 01/08/2017 Diabetic ketoacidosis ([facility]/HCC) (HCC) 12/30/2012 Medical Precautions: No active isolations [...] is from first admission, pt was ar [facility] prior to this admission Patient admitted from home. Lives With: Spouse Type of Home: single family home Home Layout: Single Level Home Home Access: Stairs to Enter without Rails (# of stairs: 3) Bathroom Shower/Tub: Walk in Shower Toilet: Standard Home Equipment: front wheeled walker Homemaking Responsibilities: Independent Receives Help From: Spouse Active Auto Specialty Services Manager: N/A Prior Level of Function Prior Level of ADL Function: Independent Prior Level of Mobility: Independent; Device: Front wheeled walker Prior Level of Transfers: Independent Pt requires assistance at [facility], information of independent is baseline [...] Daily Activity Raw Score: 20 ADL Inpatient [facility] G-Code Modifier: CJ Plan Pt would benefit [...] of Care supervision is transferred to a [facility] Occupational Therapist. Goals and/or treatment plan was established in collaboration with patient/family/other representatives. * Radha Kelley RCP - 08/17/2024 9:48 AM EDT [facility] Respiratory Care Department Progress Note [...] and subdural hematoma who presents to the [facility] respiratory distress. Patient had been recently discharged 2 days prior to [facility], and was found altered, nasal [...] Vitals: BP MAP 135/68 (08/17/24 0400) 89 (08/17/24399) Arterial BP MAP (na) (08/13/24 [...] of teeth/lips/gums Lips/Gums: [x]Intact []Lesion Present Mucosa: [x]Yaurel []Moist []Dry Neck: External Appearance Overall Appearance: [...] 0829 08/16/24 1238 08/16/24 1710 08/16/24 2004 08/17/24222 GLUCOSE 270* -- -- -- -- 362* -- -- -- -- 152* POCGLU -- 302* 340* 368* 344* -- 405* 350* 163* 174* -- Procal: No results for input(s): PROCAL in the last 72 hours. CBC: Recent Labs 08/15/2462208/16/2433808/17/24222 WBC 5.0 4.8 4.5 HGB 9.5* 9.7* 9.1* HCT 30.3* 30.0* 28.7* PLT 90* 104* 105* MCV 92.4 91.5 91.7 RDW 15.9* 15.8* 15.8* ABGs: No results for input(s): PHART, FMH6MQJ, PO2ART, CPV3DYG, SO2ART, C0CNOMFA in thelast 72 hours. Lactic Acid: No [...] would like to meet with SW or gearcase assembler to discuss insurance coverage for dialysis before pt is discharged from hospital. Encourage ambulation. GI Prophylaxis: Pantoprazole PO DVT Prophylaxis: Heparin subcutaneous Disposition: Transfer to [facility] Cosigned by Kemar Adames DO at 08/17/2024 7:07 PM EDT Associated attestation - Kemar Adames DO - 08/17/2024 7:07 PM EDT I have personally performed a qrbo-ea-mjuk diagnostic evaluation on this patient on date of fdjevtm61/15/24. History, labs, imaging studies, and electronic medical record have been reviewed by me. This note documented by the []Critical Care Fellow [x]seasonal warehouse associate []TONJA reflects my history, exam, and medical [...] days Referring physician: Kemar Adames DO Outpatient Bench Loom Weaver: Christy Huerta DO ASSESSMENT/PLAN: #Nonoliguric UMA, dialysis dependent: [facility] dependent since 07/26 last admit. Baseline Cr had been 2.4-2.8, last (04/26) Cr 2.4 eGFR 20, 24 hr byenrfe=7630 mg. -Suspected ATN in setting of infection/HD [...] Skin: warm and dry, no rash Access: [facility] with clean dressing DATA: LABS: [...] 231 08/12/2024 Lab Results Component Value Date [id number] 932 (H) 08/12/2024 FOLATE 10.8 08/12/2024 Lab [...] IMAGING: POCT glucose meter Performed by: [facility], [address] [place] [address] CLIA ID: [id number] POCT glucose meter Performed by: [facility], [address] [place] [id number] CLIA ID: [id number] Signed: Jose Carlos Medrano MD Nephrology Located Within [facility] ([facility]) Pager: [phone] Office Office * Sherri Domingo, STADIUM MANAGER - BUILDING SERVICEMAN - 08/16/2024 10:32 AM EDT Images from the original note were not included. [facility] Wound Care PROGRESS Note Sandy Deng AGE: [...] tablet by mouth 2 times daily. Cholecalciferol ([facility] Vitamin D3) 25 MCG (1000 UT) chewable tablet Chew. clopidogrel (Plavix) 75 MG tablet Take 1 tablet by mouth daily. Continuous Glucose Sensor (Dexcom G6 Sensor) misc Continuous Glucose Transmitter (Dexcom G6 transmitter) [facility] fluticasone (Flonase) 50 [...] to follow Recommend to follow up at [facility] after hospital [...] from the original note were not included. [facility] - Infectious Diseases Attending Progress Note Subjective: Following for recent pneumonia as well as mastoid fluid bilaterally with CT showing L otitis media.+ known aspiration issues/ COPD/ recent COVID infection 07/24; recent MSSA/ Pseudomonas CTX-M pneumonia. Taken off of zosyn on 08/[address] Sandoval's recommendation. Vancomycin was last given on 08/14with repeat blood cx due to 1/2 with Staph epi--drawn peripherally. No problems with [...] 08/16/2024338 PROT 5.2 (L) 08/12/20242332 BILITOT 0.9 08/12/2024 233 ALKPHOS 52 08/12/2024 2333 AST 18 08/12/2024 233 ALT 13 08/12/20242332 [...] and subdural hematoma who presents to the [facility] respiratory distress. Patient had been recently discharged 2 days prior to [facility], and was found altered, nasal [...] 56.5 kg (124 lb 9 oz) (08/16/24 796) BMI Body mass index is 20.1 kg/m . I/O: 08/15 0700 - 08/16 0659 In: 418 [P.O.:318; I.V.:100] Out: 525 [Urine:525] [...] Normal [] Scar/Lesion/Mass Inspection of teeth/lips/gums Dentition: []Choctaw Teeth []Dentures Lips/Gums: [x]Intact []Lesion Present Mucosa: [x]Yaurel []Moist []Dry Neck: External Appearance Overall Appearance: [...] ABGs: Recent Labs 08/13/24 0658 PHART 7.291* JTA7VVS 49.4* PO2ART 84.7 ULD6XKG 23.3 G0CXOZBK 30% Oxygen Lactic Acid: Recent Labs 08/13/24 [...] would like to meet with SW or gearcase assembler to discuss insurance coverage for dialysis before pt is discharged from hospital. GI Prophylaxis: Pantoprazole PO DVT Prophylaxis: SCDs, subcutaneous heparin Disposition: Transfer to [facility] Cosigned by Kemar Adames DO at 08/16/2024 8:35 PM EDT Associated attestation - Kemar Adames DO - 08/16/2024 8:35 PM EDT I have personally performed a hzeh-lu-mvmj diagnostic evaluation on this patient on date of iqkcadx10/14/24 . History, labs, imaging studies, and electronic medical record have been reviewed by me. This note documented by the [x]seasonal warehouse associate []TONJA reflects my history, exam, and medical [...] days Referring physician: Elizabeth Tyler MD Outpatient Bench Loom Weaver: Dr. Christy Huerta Assessment / Plan 63 [...] hypercapneic respiratory failure. #Nonoliguric UMA, dialysis dependent: [facility] [employer] [facility] dependent since 07/26 last admit. Baseline Cr had been 2.4-2.8, last (04/26) Cr 2.4 eGFR 20, 24 hr muhqouy=2778 mg. -Suspected ATN in setting of infection/HD [...] last admit -On vanc/zosyn -ID evaluating Access: [facility] 07/29 Recommendations: -No acute indications for HD, next treatment tomorrow 08/16 -Repeat lasix 100 mg IV today -Will follow pancytopenia workup per primary, using citrate locks for HD line pending HIT testing -Renal function panel daily Thank you for allowing us to participate in the care of this patient. Please call with any questions. Saroj Gaffney MD Located Within [facility] ([facility]) Office phone: [phone] Office fax: [phone] Pager: [phone] 08/15/24 Subjective No acute events. Fairly modest [...] and subdural hematoma who presents to the [facility] respiratory distress. Patient had been recently discharged 2 days prior to [facility], and was found altered, nasal [...] Normal [] Scar/Lesion/Mass Inspection of teeth/lips/gums Dentition: []Choctaw Teeth []Dentures Lips/Gums: [x]Intact []Lesion Present Mucosa: [x]Yaurel []Moist []Dry Neck: External Appearance Overall Appearance: [...] within last 24 hours- BMP: Recent Labs 08/12/24233208/13/24 0507 08/14/24 0404 [...] displayed. ABGs: Recent Labs 08/12/24 1604 08/12/24 23308/13/2458 PHART -- -- 7.291* UBE5HAP -- -- 49.4* PO2ART -- -- 84.7 UIJ5XEC -- -- 23.3 V5FYLOSU Bi-PAP 30% Oxygen 30% Oxygen Lactic Acid: [...] PO DVT Prophylaxis: SCDs Disposition: Transfer to [facility] Cosigned by Elizabeth Tyler MD at 08/15/2024 1:22 PM EDT Associated attestation - Elizabeth Tyler MD - 08/15/2024 1:22 PM EDT I have personally performed a yhlg-jy-lfvx diagnostic evaluation on this patient on date of pxfoggo03/13/24. History, labs, imaging studies, and electronic medical record have been reviewed by me. This note documented by the [x]seasonal warehouse associate []TONJA reflects my history, exam, and medical [...] days Referring physician: Elizabeth Tyler MD Outpatient Bench Loom Weaver: Dr. Christy Huerta Assessment / Plan 63 [...] hypercapneic respiratory failure. #Nonoliguric UMA, dialysis dependent: [facility] [employer] dependent since 07/26 last admit. Baseline Cr had been 2.4-2.8, last (04/26) Cr 2.4 eGFR 20, 24 hr dihvdqc=9238 mg. -Suspected ATN in setting of infection/HD [...] last admit -On vanc/zosyn -ID evaluating Access: [facility] 07/29 Recommendations: -No acute indications for HD, monitoring for recovery -Lasix challenge today 100 mg IV x1 -Will follow pancytopenia workup per primary, using citrate locks for HD line pending HIT testing -Renal function panel daily Thank you for allowing us to participate in the care of this patient. Please call with any questions. Saroj Gaffney MD Located Within [facility] ([facility]) Office phone: [phone] Office fax: [phone] Pager: [phone] 08/14/24 Subjective No acute events. No issues [...] Yes, addressed in today's progress note Anticipated [place] Medications (ICU initiated) or Dose Changes and [...] hours of ICU transfer, page MICU res material controller for clarifications. * Janell Booker MD - [...] [facility] and today was found altered, nasal [...] kg/m . I/O: 08/13 0700 - 08/14 659 In: 1376.5 [I.V.:1006] Out: [...] Normal [] Scar/Lesion/Mass Inspection of teeth/lips/gums Dentition: []Choctaw Teeth []Dentures Lips/Gums: [x]Intact []Lesion Present Mucosa: []Yaurel []Moist []Dry Neck: External Appearance Overall Appearance: [...] last 24 hours BMP: Recent Labs 08/12/24 23308/13/24 0507 08/14/24 [...] 2333 08/13/24 0658 PHART -- -- 7.291* AYK0OFZ -- -- 49.4* PO2ART -- -- 84.7 XDV8PFI -- -- 23.3 C7LRKPBV Bi-PAP 30% Oxygen 30% Oxygen Lactic Acid: [...] EEG with video is abnormal. Continuous diffuse xsgfuotd-rf-pnnrpo diffuse slowing is seen unresponsive to stimulation. REM sleep architecture is observed. At times, fronto-centrally predominant fast activity is observed reminiscent of sleep spindles. No interictal epileptiform activity nor seizures are observed. The findings are supportive of a geobwbmw-ss-tiifst global encephalopathy non- specific as to etiology. [...] stabilized since admission. She canbe transferred to [facility]. Will restart all home meds, except metoprolol will be restarted at half the home dose. This note was written by a medical student. Plan is not finalized until resident/attending add an attestation or addendum. Cosigned by Elizabeth Tyler MD at 08/14/2024 1:01 PM EDT Associated attestation - Elizabeth Tyler MD - 08/14/2024 1:01 PM EDT I have personally performed a spkt-jm-iwur diagnostic evaluation on this patient on date of wwskwyr25/12/24. History, labs, imaging studies, and electronic medical record have been reviewed by me. This note documented by the [x]seasonal warehouse associate []TONJA reflects my history, exam, and medical [...] to follow on floor. * Bernadette Abraham, JUDE - 08/14/2024 12:36 AM EDT [facility] Respiratory Care Department Progress Note Comment or [...] requiring intubation, was followed by RD and [facility], underwent MBSS 08/04 with pureed/mildly thick liquids recs, was later upgraded to regular textures/mildly thick liquids. Per paper chart at [facility] pt was ordered a Soft and Bite Sized Diet with Mildly Thick Liquids. Did not appear to be receiving ONS. Recommend pt not be without nutrition for >72 hours if medically able. --> if pt is able to advance oral diet, consider goal of ALLI, CHO Controlled and monitor renal labs and need for additional therapeutic restrictions in setting of ESRD/HD. Consider [facility] evaluation for texture/consistency recommendations. Do feel that [...] data (need further clarification on PO intake LINK TRAINER MAINTENANCE MAN, pt weight appeared to be downtrending during recent admit however is now back up to similar weight at start of recent admit, will continue to monitor criteria) Context: Acute Illness Findings of the 6 clinical characteristics of malnutrition: Energy Intake: Unable to assess (during recent admit pt required intubation and EN, s/p MBSS with altered consistency diet recs, at [facility] pt was ordered soft and bite sized/mildly thick liquids, unclear intake LINK TRAINER MAINTENANCE MAN, pt is currently NPO and requiring NIV) [...] Mild (BUE pitting, BLE non-pitting per flowsheets) Surgical Technician Strength: Not Performed Nutrition Assessment: pt with PMH significant for COPD (4L NC at baseline), ESRD on HD, DM1, HLD and recent admission to ICU for septic shock and subdural hematoma (07/26-08/10/24) who presented to [facility] ED on 08/12/24 in respiratory distress, pt was d/c to [facility] following recent admit and was found with altered mentation, nasal cannula was taken off and pulse ox at 80%, pt brought to [facility] ED for assessment, in the ED [...] time, of note pt was followed by [facility] during recent admit- she was on altered consistency diet, underwent MBSS on 08/04 with pureed/mildly thick liquids recs, was later upgraded to regular textures/mildly thick liquids on 08/09 prior to d/c, at time of assessment pt is sleeping soundly in bed, NIV in place and pt on cEEG, [facility] and Bite Sized [...] On: Kcal/kg Weight Used for Energy Requirements: [place] Weight for Energy Calculation (kg): 59.1 kg Total Energy Requirements (kcals/day): 1655-1891kcals/day Weight Used for Protein Requirements: [place] Weight in Kg Used for Protein Requirements: [...] weight history prior to recent admit --> 9/25/24: 134# bedscale, 08/07/24:126# bedscale) [place] Body Weight (lbs) (Calculated): 130 lbs [place] Body Weight (Kg) (Calculated): 59 kg % [place] Body Weight (Calculated): 104.6 % BMI (kg/m2) [...] determine Lidia Rojas RD Contact: available via [employer] or *[phone] * Janell Booker MD - 08/13/2024 6:23 [...] Normal [] Scar/Lesion/Mass Inspection of teeth/lips/gums Dentition: []Choctaw Teeth []Dentures Lips/Gums: [x]Intact []Lesion Present Mucosa: []Yaurel []Moist []Dry Neck: External Appearance Overall Appearance: [...] -- -- 3.0 LFTs: Recent Labs 08/12/24 2333 08/13/24 1046 [...] 2333 08/13/24 0658 PHART -- -- 7.291* [id number] -- -- 49.4* PO2ART -- -- 84.7 GUF7QZS -- -- 23.3 [id number] Bi-PAP 30% Oxygen 30% Oxygen Lactic Acid: [...] EEG with video is abnormal. Continuous diffuse jglkwdun-we-vdslaz diffuse slowing is seen unresponsive to stimulation. REM sleep architecture is observed. At times, fronto-centrally predominant fast activity is observed reminiscent of sleep spindles. No interictal epileptiform activity nor seizures are observed. The findings are supportive of a vpzjemon-vi-cqiiec global encephalopathy non- specific as to etiology. [...] PM EDT I have personally performed a evsx-jz-dupi diagnostic evaluation on this patient on date of fwqyvvi18/11/24. History, labs, imaging studies, and electronic medical record have been reviewed by me. This note documented by the [x]seasonal warehouse associate []TONJA reflects my history, exam, and medical [...] so far today, excludingprocedures. documented in this [facility]10-21-2024 Nurse Note* Liliana Mott - 08/23/2024 3:02 PM EDT Patient Name: Sandy Deng Patient : 1960 Acct: [id number] Date of Admission: 08/12/2024 [facility]: [facility] A Code Status: Full Code Allergies: [...] artery Chest pain Chronic constipation Cigarette smoker Carlotta's sign present Depressive disorder Diabetic ketoacidosis (CMS/HCC) [...] - Before each treatment: Dialysis Machine No.: [id number] RO Machine Number: [id number] Dialyzer Lot No.: [id number] Tubing Lot Number: [id number] All Connections Secure: Yes Venous Parameters Set: Yes Arterial Parameters Set: Yes NS Bag: Yes Saline Line Double Clamped: Yes Dialyzer: Nipro Prime Volume (mL): 200 mL RO Machine Number: [id number] RO Machine Log Sheet Completed: Yes Machine Alarm Self Test: Completed, Passed (1315) (08/23/24 1323) Air Foam Detector: Tested, Proper Function, pH Reading Extracorporeal Circuit Tested for Integrity: Yes Machine Conductivity: 13.6 Manual Conductivity: 13.6 Manual Ph: 7 Bleach Test (Neg): Yes Bath Temperature: 36 C (96.8 F) Conductivity Meter Serial #: [id number] Machine Functioning Alarm Free? Yes Dialysis Bath: K+ (Potassium): 4 Ca+ (Calcium): 2.5 Na+ (Sodium): 137 HCO3 (Bicarb): 35 Bicarbonate Concentrate Lot No.: [id number] Acid Concentrate Lot No.: [id number] Chlorine Testing - Before each treatment and [...] Name: Sandy Deng Patient : 1960 Acct: [id number] Date of Admission: 08/12/2024 [facility] A Code Status: Full [...] artery Chest pain Chronic constipation Cigarette smoker Carlotta's sign present Depressive disorder Diabetic ketoacidosis (CMS/HCC) [...] Access Verified, Timeliness Second Clinician Verifying: Carlos Sancehz RN Time out performed prior to access [...] 0753 -- -- -- Tachypnea -- Clear;Diminished Yaurel Dry;Cool -- Soft;Rounded;Nondistended Active;Audible 08/21/24 1010 Alert (0) -- Regular -- Bi-PAP Diminished Yaurel Cool;Dry Fair Soft Active 08/21/24 1320 Alert (0) x3 Regular -- Bi-PAP Diminished Yaurel Cool;Dry Fair Soft Active Labs Lab Results Component Value Date/Time WBC 6.2 08/21/2024313 HGB 9.8 08/21/2024 0825 HCT 30.6 (L) 08/21/2024313 PLT 157 08/21/2024313 NA 133 (L) 08/21/2024313 K 3.2 (L) 08/21/2024313 CL 99 08/21/2024313 CO2 27 08/21/2024313 BUN 47 (H) 08/21/2024313 CREATININE 4.52 (H) 08/21/2024313 CALCIUM 7.8 (L) 08/21/2024313 PHOS 3.5 08/21/2024 0314 IV Drips and Rate/Dose Safety - Before each treatment: Dialysis Machine No.: [id number] RO Machine Number: [id number] Dialyzer Lot No.: [id number] Tubing Lot Number: [id number] All Connections Secure: Yes Venous Parameters Set: Yes Arterial Parameters Set: Yes NS Bag: Yes Saline Line Double Clamped: Yes Dialyzer: Nipro Prime Volume (mL): 200 mL RO Machine Number: [id number] RO Machine Log Sheet Completed: Yes Machine [...] HCO3 (Bicarb): 35 Bicarbonate Concentrate Lot No.: [id number] Acid Concentrate Lot No.: [id number] Chlorine Testing - Before each treatment and [...] F) Temporal 60 19 100 % -- 08/20/241942 -- -- -- 61 -- 100 % -- 08/20/241940 -- -- -- 55 19 100 % [...] Name: Sandy Deng Patient : 1960 Acct: [id number] Date of Admission: 08/12/2024 Room/Bed: T3-321/T3321 A [...] - Before each treatment: Dialysis Machine No.: [id number] Machine Number: [id number] Dialyzer Lot No.: [id number] Tubing Lot Number: [id number] All Connections Secure: Yes Venous Parameters Set: Yes Arterial Parameters Set: Yes NS Bag: Yes Saline Line Double Clamped: Yes Dialyzer: Nipro Prime Volume (mL): 250 mL RO Machine Number: [id number] RO Machine Log Sheet Completed: Yes Machine Alarm Self Test: Completed, Passed (08/18/24 0800) Air Foam Detector: Tested, Proper Function, pH Reading Extracorporeal Circuit Tested for Integrity: Yes Machine Conductivity: 13.9 Manual Conductivity: 14 Manual Ph: 7.2 Bleach Test (Neg): Yes Bath Temperature: 36 C (96.8 F) Conductivity Meter Serial #: [id number] Machine Functioning Alarm Free? Yes Dialysis Bath: K+ (Potassium): 3 Ca+ (Calcium): 2.5 Na+ (Sodium): 137 HCO3 (Bicarb): 35 Bicarbonate Concentrate Lot No.: [id number] Acid Concentrate Lot No.: [id number] Chlorine Testing - Before each treatment and [...] Name: Sandy Deng Patient : 1960 Acct: [id number] Date of Admission: 08/12/2024 Room/Bed: T3-321/T3-321 A [...] Date/Time WBC 4.8 08/16/2024338 HGB 9.7 (L) 08/16/2024 033 HGB 8.3 08/13/2024 0658 HCT 30.0 (L) 08/16/2024338 PLT 104 (L) 08/16/2024338 NA 131 (L) 08/16/2024338 K 4.1 08/16/2024338 CL 98 08/16/2024338 CO2 27 08/16/2024338 BUN 38 (H) 08/16/2024338 CREATININE 3.90 (H) 08/16/2024338 CALCIUM 7.2 (L) 08/16/2024338 PHOS 4.5 08/16/2024338 IV Drips and Rate/Dose Safety - Before each treatment: Dialysis Machine No.: [id number] RO Machine Number: [id number] Dialyzer Lot No.: [id number] Tubing Lot Number: [id number] All Connections Secure: Yes Venous Parameters Set: Yes Arterial Parameters Set: Yes NS Bag: Yes Saline Line Double Clamped: Yes Dialyzer: Nipro Prime Volume (mL): 200 mL RO Machine Number: [id number] RO Machine Log Sheet Completed: Yes Machine Alarm Self Test: Completed, Passed (1341) (08/16/24 1341) Air Foam Detector: Tested, Proper Function Extracorporeal Circuit Tested for Integrity: Yes Machine Conductivity: 13.4 Manual Conductivity: 13.8 Manual Ph: 7.4 Bleach Test (Neg): Yes Bath Temperature: 36 C (96.8 F) Conductivity Meter Serial #: [id number] Machine Functioning Alarm Free? Yes Dialysis Bath: K+ (Potassium): 3 Ca+ (Calcium): 2.5 Na+ (Sodium): 137 HCO3 (Bicarb): 35 Bicarbonate Concentrate Lot No.: [id number] Acid Concentrate Lot No.: [id number] Chlorine Testing - Before each treatment and [...] to face Response: See orders Notification Time: 08 Reason for Communication: Evaluate (Blood glucose 405) [...] Name: Sandy Deng Patient : 1960 Acct: [id number] Date of Admission: 08/12/2024 Room[facility]: [facility] A Code Status: [...] (L) 08/13/2024 1438 NA 134 (L) 08/13/2024 050 K 3.7 08/13/2024506 CL 103 08/13/2024506 CO2 19 (L) 08/13/2024506 BUN 18 (H) 08/13/2024506 CREATININE 2.43 (H) 08/13/2024506 CALCIUM 7.1 (L) 08/13/2024506 PHOS 3.0 08/13/2024506 IV Drips and Rate/Dose Safety - Before each treatment: Dialysis Machine No.: [id number] Machine Number: [id number] All Connections Secure: Yes Venous Parameters Set: Yes Arterial Parameters Set: Yes NS Bag: Yes Saline Line Double Clamped: Yes Dialyzer: Nipro Prime Volume (mL): 200 mL RO Machine Number: [id number] RO Machine Log Sheet Completed: Yes Machine Alarm Self Test: Completed, Passed (08/13/24 1520) Air Foam Detector: Tested, Proper Function, pH Reading Extracorporeal Circuit Tested for Integrity: Yes Machine Conductivity: 13.8 Manual Conductivity: 13.8 Manual Ph: 7 Bleach Test (Neg): Yes Bath Temperature: 36 C (96.8 F) Conductivity Meter Serial #: [id number] Machine Functioning Alarm Free? Yes Dialysis Bath: K+ (Potassium): 3 Ca+ (Calcium): 2.5 Na+ (Sodium): 137 HCO3 (Bicarb): 35 Chlorine Testing - Before each treatment and every 4 hours: Time On: 1525 Time Off: 1825 Treatment Goal: 2-2.5 Weight Height: 167.6 cm (5' 6) (08/13/2413) Weight: 62 kg (136 lb 11 oz) [...] -- 78 20 100 % -- -- 08/12/245 143/59 37.1 C (98.7 F) Temporal 76 [...] BC + presumptive staph epi) Provider Name: Raegan Provider Role: Resident Method [...] Stroke team narrator completed. documented in this [facility]10-21-2024 Consult note* Eladio Lebron MD - [...] tablet by mouth 2 times daily. Cholecalciferol ([facility] Vitamin D3) 25 MCG (1000 UT) chewable tablet Chew. clopidogrel (Plavix) 75 MG tablet Take 1 tablet by mouth daily. Continuous Glucose Sensor (Dexcom G6 Sensor) misc Continuous Glucose Transmitter (Dexcom G6 transmitter) [facility] estradiol (Estrace) 1 [...] 10 days. Insulin Disposable Pump (Omnipod 5 EgwC9H5 Intro Gen 5) kit Insulin Disposable Pump (Omnipod 5 NgsA3Z3 Pods Gen 5) [facility] glargine (Lantus) 100 UNIT/ML injection Inject [...] GRAMS BY MOUTH EVERYDAY FOR ONE DAY Margareth Peck 200-62.5-25 MCG/ACT aerosol powder FAMILY HISTORY: No [...] contact the on-call urology resident in the transportation economics teacher for void trial instructions. Would recommend doing void trial prior to the day of anticipated discharge if able. Follow up with urology for continued outpatient management Please page the material controller urology resident with any questions or concerns Thank you for allowing me to participate in the care of your patient Will discuss plan with Dr. Steen. Attestation to follow. Please do not hesitate to reach out to the urology team with additional questions or concerns On-Call Finder --> [facility] Urology Page on-call resident(s) first Eladio [...] Aerosphere 160-9-4.8 MCG/ACT aerosol 07/20/24 Historical Provider, MD busPIRone (Buspar) 7.5 MG tablet Take 1 tablet by mouth 2 times daily. Historical Provider, Cholecalciferol ([facility] Vitamin D3) 25 MCG (1000 UT) chewable tablet Chew. Historical Provider, clopidogrel (Plavix) 75 MG tablet Take 1 tablet by mouth daily. Historical Provider, Continuous Glucose Sensor (Dexcom G6 Sensor) [facility] 07/22/24 Historical Provider, Continuous Glucose Transmitter (Dexcom G6 transmitter) [facility] 07/25/24 Historical Provider, [...] Espana DO Insulin Disposable Pump (Omnipod 5 KbrJ5I8 Intro Gen 5) kit 12/03/23 Historical Provider, Insulin Disposable Pump (Omnipod 5 LubV8Z6 Pods Gen 5) [facility] 07/15/24 Historical Provider, [...] Normal [] Scar/Lesion/Mass Inspection of teeth/lips/gums Dentition: [x]Choctaw Teeth []Dentures Lips/Gums: [x]Intact []Lesion Present Mucosa: []Yaurel []Moist [x]Dry Neck: External Appearance Overall Appearance: [...] PHOS 3.4 3.8 4.1 CBC: Recent Labs 08/18/24 0417 08/19/24 0550 08/20/24 0522 08/20/24 1024 08/20/24 1250 WBC 4.5 4.0 5.8 -- -- HGB 9.2* 9.3* 9.9* 10.1 10.4 HCT 29.1* 29.5* 30.5* -- -- PLT 111* 114* 145 -- -- MCV 92.1 93.1 90.8 -- -- RDW 15.7* 15.6* 15.5* -- -- ABGs: Recent Labs 08/20/24 1024 08/20/24 1250 PHART 7.209* 7.244* [id number] 71.5* 68.4* PO2ART 63.4* 36.2* [id number] 27.9* 28.9* [id number] Nasal cannula Bi-PAP Labs in Last 3 [...] PM EDT I have personally performed a rilh-xh-fohz diagnostic evaluation on this patient on date of jyelogq94/18/24. History, labs, imaging studies, and electronic medical record have been reviewed by me. This note documented by the [x]Critical Care Fellow []seasonal warehouse associate []TONJA reflects my history, exam, and medical [...] from the original note were not included. [facility] - Infectious Diseases Attending Consult Note Reason for Consult: Respiratory distress, change in MS,lethargy, and pancytopenia and candiduria History of Present Illness: 63 F, DMT1, COPD on 4 L, recently admitted to [facility] form 07/26-08/10 for Respiratory failure, treated as aspiration pNA already, septic shock, off presors, UMA/CKD, and finally transferred to Rehab. Overthere she pulled her NC< and found altered, hypoxic, lethargic. Transferred back to [facility], and required NIV initially. Today she [...] puff 2 puff Inhalation q6h PRN Ana Rosakosta Carlin DO [Held by provider] aspirin EC tablet 81 mg 81 mg Oral Daily Ana Rosakosta Carlin DO [Held by provider] atorvastatin (Lipitor) tablet 20 mg 20 mg Oral Nightly Ana Rosakosta Carlin DO busPIRone (Buspar) tablet 7.5 mg 7.5 mg Oral BID May Wang DO [Held by provider] clopidogrel (Plavix) tablet 75 mg 75 mg Oral Daily Ana Rosakosta Carlin DO dextrose 5 % infusion 100 mL/hr IntraVENous PRN Ana Rosakosta Carlin DO dextrose 50 % solution 12.5 g 12.5 g IntraVENous PRN Ana Rosakosta Carlin DO [Held by provider] fluticasone (Flonase) nasal spray 2 spray 2 spray Each Nostril Daily Ana Rosakosta Carlin DO gabapentin (Neurontin) capsule 200 mg 200 mg Oral BID May Wang DO glucagon (human recombinant) injection 1 mg 1 mg IntraMUSCular PRN Ana Rosakosta Carlin DO glucose oral gel 15 g 15 g Oral PRN Ana Rosakosat Carlin DO [Held by provider] guaiFENesin (Robitussin) [...] Rosakosta Carlin DO 5,000 Units at 08/12/242049 insulin glargine (Lantus) injection 2 Units 2 Units SubCUTAneous Nightly Janell Booker MD Insulin Lispro (Humalog) injection 0-12 Units 0-12 Units SubCUTAneous TID Singh Lopez MD ipratropium-albuterol (Duo-Neb) 0.5-2.5 mg/3 mL nebulizer solution 3 mL 3 mL Nebulization TID Ana Rosakosta Irizarry Carlin, DO 3 mL at 08/13/24 0902 lisinopril tablet 2.5 mg 2.5 mg Oral Daily Ana Rosakosta Irizarry Carlin, DO [START ON 08/14/2024] methylPREDNISolone sod suc [...] puff 2 puff Inhalation BID Ana Rosakosta Irizarry Carlin, DO mupirocin (Bactroban) 2 % ointment 1 Application 1 Application Nasal BID Ana Rosakosta Pros, DO 1 Application at 08/13/24 0906 ondansetron ODT (Zofran-ODT) disintegrating tablet 4 mg 4 mg Oral q8h PRN Ana Rosakosta Irizarry Carlin, DO Or ondansetron (Zofran) injection 4 mg 4 mg IntraVENous q6h PRN Ana Rosakosta Irizarry Carlin, DO QUEtiapine (SEROquel) tablet 25 mg [...] 70 22 97 % -- -- 08/12/24 2101 131/50 36.7 C (98 F) Axillary 76 16 100 % -- -- 08/12/24 2100 131/50 -- -- 78 20 100 % [...] edema with small pleural effusions. Antimicrobials,Start/End Dates: Tjwfvfk29/10- Impression: 63 F, admitted with: Respiratory distress- [...] days Referring physician: Elizabeth Tyler MD Outpatient Bench Loom Weaver: Dr. Christy Huerta Reason for Consult UMA [...] hypercapneic respiratory failure. #Nonoliguric UMA, dialysis dependent: [facility] dependent since 07/26 last admit. Baseline Cr had been 2.4-2.8, last (04/26) Cr 2.4 eGFR 20, 24 hr vfhoexn=0006 mg. -Suspected ATN in setting of infection/HD [...] -S/p 1 dose vanc -ID evaluating Access: RIJ TDC 07/29 Case was discussed with ICU [...] call with any questions. Saroj Gaffney MD Located Within [facility] ([facility]) Office phone: [phone] Office fax: [phone] Pager: [phone] 08/13/24 History of Present Illness Sandy Deng [...] with hypercapneic respiratory failure. Recently discharged to [facility] from [facility] after admission for sepsis/shock as above. [...] Does not appear patient had HD at [facility] 08/12 (last treatment here 08/10), Cr relatively [...] labs and imaging as above. * Shanti Bianchi, MARQUITA - 08/13/2024 9:40 AM EDTAssociated Order(s): IP WOUND CARE NURSE CONSULT TO EVAL Images from the original note were not included. [facility] Wound Care CONSULT Note Sandy Deng AGE: [...] tablet by mouth 2 times daily. Cholecalciferol ([facility] Vitamin D3) 25 MCG (1000 UT) chewable tablet Chew. clopidogrel (Plavix) 75 MG tablet Take 1 tablet by mouth daily. Continuous Glucose Sensor (Dexcom G6 Sensor) misc Continuous Glucose Transmitter (Dexcom G6 transmitter) [facility] fluticasone (Flonase) 50 [...] prep barrier wipe daily and PRN, leave INSTRUCTOR TECHNICAL TRAINING Nutritional support Wound Care to follow Recommend to follow up at [facility] Outpatient wound care center after hospital [...] independent evaluation of this patient. Cosigned by Alxe Duff DO at 08/17/2024 8:37 AM EDT * Jomar Snider MD - 08/12/2024 11:04 PM EDT STROKE TEAM NOTE Patient Name: Sandy Deng Patient : 1960 Acct: [id number] Date of Admission: 08/12/2024 [facility] A PCP: Bird Lujan Stroke [...] mouth 2 times daily. Historical Provider, Cholecalciferol ([facility] Vitamin D3) 25 MCG (1000 UT) chewable tablet Chew. Historical Provider, clopidogrel (Plavix) 75 MG tablet Take 1 tablet by mouth daily. Historical Provider, Continuous Glucose Sensor (Dexcom G6 Sensor) [facility] 07/22/24 Historical Provider, Continuous Glucose Transmitter (Dexcom G6 transmitter) [facility] 07/25/24 Historical Provider, [...] Espana DO Insulin Disposable Pump (Omnipod 5 WxtF0I5 Intro Gen 5) kit 12/03/23 Historical Provider, Insulin Disposable Pump (Omnipod 5 QkkT0C1 Pods Gen 5) mis 07/15/24 Historical Provider, insulin glargine (Lantus) 100 [...] infusion, 100 mL/hr, IntraVENous, PRN, Ana Rosa Pros, DO dextrose 50 % solution 12.5 g, 12.5 g, IntraVENous, PRN, Ana Rosakosta Irizarry Carlin, DO [Held by provider] fluticasone (Flonase) nasal spray 2 spray, 2 spray, Each Nostril, Daily, Ana Rosakosta Pros, DO [Held by provider] gabapentin (Neurontin) capsule 200 mg, 200 mg, Oral, BID, Ana Rosakosta Irizarry Carlin, DO glucagon (human recombinant) injection 1 mg, 1 mg, IntraMUSCular, PRN, Ana Rosa Irizarry Carlin, DO glucose oral gel 15 g, 15 g, Oral, PRN, Ana Rosakosta Irizarry Carlin, DO [Held by provider] guaiFENesin (Robitussin) 100 MG/5ML liquid 200 mg, 200 mg, Oral, q4h PRN, AmMyrna Pros, DO [Held by provider] heparin injection 5,000 Units, 5,000 Units, SubCUTAneous, 2 times per day, Ana Rosa Irizarry Carlin, DO, 5,000 Units at 08/12/242049 Insulin Lispro (Humalog) injection 0-6 Units, 0-6 Units, SubCUTAneous, q6h, Ana Rosa Irizarry Carlin, DO,3 Units at 08/12/241823 ipratropium-albuterol (Duo-Neb) 0.5-2.5 mg/3 mL nebulizer solution 3 mL, 3 mL, Nebulization, TID, Ana Rosakosta Irizarry Carlin, DO, 3 mL at 08/12/242018 [Held by provider] lisinopril tablet 2.5 mg, 2.5 mg, Oral, Daily, Ana Rosa Edie Carlin, DO methylPREDNISolone sod suc (PF) (SOLU-Medrol) 40 MG injection 40 mg, 40 mg, IntraVENous, q6h, Ana Rosa Edie Carlin, DO, 40 mg at 08/12/24 1640 [Held by provider] metoprolol tartrate (Lopressor) tablet 50 mg, 50 mg, Oral, BID, Ana Rosa Edie Carlin, DO [Held by provider] mirtazapine (Remeron) tablet 7.5 mg, 7.5 mg, Oral, Nightly, Ana Rosa Edie Carlin, DO [Held by provider] mometasone-formoterol (Dulera 200) 200-5 MCG/ACT inhaler 2 puff, 2 puff, Inhalation, BID, Ana Rosa Edie Carlin, DO mupirocin (Bactroban) 2 % ointment 1 Application, 1 Application, Nasal, BID, Ana Rosakosta Irizarry Carlin, DO, 1 Application at 08/12/242049 [...] 445 ms QTC Interval 450 ms P Collins 76 degrees QRS Collins -24 degrees T Wave Collins 51 degrees MS Interval 162 ms Basic [...] PM Result Value Ref Range PRODUCT CODE H5823I71 Unit Number [id number] Unit ABO O Unit RH POS Crossmatch interpretation COMP Dispense Status Transfused Blood Expiration Date [id number] Product Blood Type 5100 Unit Volume 300 [...] non thrombolytic stroke workup documented in this [facility]10-21-2024 Hospital Discharge instructions* Discharge Instr - CHELO* Sindy Garrison RN - 08/23/2024 1:25 PM EDT Images from the original note were not included. Continuity of Care Form Patient Name: Sandy Deng : 1960 Admit date: 08/12/2024 Discharge date: 08/24/24 Code Status Order: Full Code Advance Directives: N Admitting Physician: Kemar Adames DO PCP: Bird Lujan Discharging Nurse: sindy soriano Discharging Hospital Unit/Room#: W6-971/W8-218 A Discharging Unit Emergency Contact: Extended Emergency Contact Information Primary Emergency Contact: Bobbi Steward Mobile Relation: Daughter Preferred language: Djiboutian Senior Credit Officer needed? No Secondary Emergency Contact: Jose Deng Mobile Relation: Spouse Preferred language: Djiboutian Senior Credit Officer needed? No Past Surgical History: Past Surgical [...] assistance Toileting Minimal assistance Feeding Minimal assistance Cash Clerk Minimal assistance Med Delivery yes Wound Care [...] 08/18/24 Pressure Injury Coccyx (Active) Site Assessment Painful;Pale;Yaurel 08/23/24799 Rosana-Wound Assessment Blanchable erythema;Fragile;Intact 08/23/24799 Wound [...] Rehab Therapies: physical therapy, occupational therapy, social science professor, and recreation therapy Weight Bearing Status/Restrictions: no restriction Other Medical Equipment (for information only, NOT a DME order): none Other Treatments: n/a Patient's personal belongings (please select all that are sent with patient): none RN SIGNATURE: MANAGEMENT/SOCIAL WORK SECTION Inpatient Status Date: 08/12/2024 Discharging to Facility/ Agency Name: [facility] Address: [address] [place] [address] Fax: Dialysis Facility (if applicable) Name: Address: Dialysis Schedule: Phone: Fax: Leaf Size Picker/Felt Tipping Machine Tender signature: ICIAN SECTION Name: Sandy Deng Prognosis: {Rehab Prognosis:93029} Condition at Discharge: {Patient Condition:80142} Rehab Potential (if transferring to Rehab): {Rehab Prognosis:87719} Recommended Labs or Other Treatments After Discharge: The individual is being admitted to a nursing facility directly from an [facility] or a unit of a [place] [facility] that is not operated by or licensed by [facility] under section 5119.14 or 5160-3-15.1 5 The individual requires the level of services provided by a nursing facility for the condition for which he or she was treated in the hospital and, Physician Certification: I certify the above information and transfer of Sandy Deng is necessary for the continuing treatment of the diagnosis listed and that she requires {CHELO Level of Care:63447} for {greater less than:02433} 30 days. Update Admission H&P: {CHELO Changes in H&P:33647} PHYSICIAN SIGNATURE: {E-signature:30661} documented in this [facility]10-11-2024 NoteReturn referral placed to [facility] via [facility] per [facility] request. Await review and response regarding ability to accept. TCC notified. [facility]10-11-2024 [facility]10-11-2024 Procedure note* Armen Diaz MD PhD - 08/13/2024 3:02 AM EDTAssociated Order(s): EEG CONTINUOUS MONITORING Images from the original note were not included. [facility] [address] [place] [address] [id number] CONTINUOUS LONG-TERM VIDEO EEG MONITORING REPORT Patient Name: Sandy Deng : 1960 Date of Study: 08/13/2024 Duration Recorded: 12-26 hrs EEG#: [id number] NUCLEAR POWERPLANT SUPERVISOR: Adam Hudson PROVIDER REQUESTING STUDY: May Wang [...] mg 75 mg Oral Daily Ana Rosakosta Carlin DO dextrose 5 % infusion 100 mL/hr IntraVENous PRN Ana Rosa Edie Carlin, DO dextrose 50 % solution 12.5 g 12.5 g IntraVENous PRN Ana Rosakosta Pros, DO [Held by provider] fluticasone (Flonase) nasal spray 2 spray 2 spray Each Nostril Daily Ana Rosa Pros DO gabapentin (Neurontin) capsule 200 mg 200 mg Oral BID May Wang DO glucagon (human recombinant) injection 1 mg 1 mg IntraMUSCular PRN Ana Rosakosta Carlin DO glucose oral gel 15 g 15 g Oral PRN Ana Rosakosta Pros, DO [Held by provider] guaiFENesin (Robitussin) 100 MG/5ML liquid 200 mg 200 mg Oral q4h PRN Ana Rosakosta Pros, DO [Held by provider] heparin injection 5,000 Units 5,000 Units SubCUTAneous 2 times per day Ana Rosakosta Carlin DO 5,000 Units at 08/12/242049 Insulin Lispro (Humalog) injection 0-6 Units 0-6 Units SubCUTAneous q6h Ana Rosakosta Carlin DO 3 Units at 08/13/24 010 ipratropium-albuterol (Duo-Neb) 0.5-2.5 mg/3 mL nebulizer solution 3 mL 3 mL Nebulization TID Ana Rosakosta Carlin, DO 3 mL at 08/12/24 2019 lactated [...] mg 2.5 mg Oral Daily Ana Rosakosta Carlin DO methylPREDNISolone sod suc (PF) (SOLU-Medrol) 40 MG injection 40 mg 40 mg IntraVENous q6h Ana Rosakosta Carlin, DO 40 mg at 08/12/24 2317 [Held by provider] metoprolol tartrate (Lopressor) tablet 50 mg 50 mg Oral BID Ana Rosa Edie Carlin, DO mirtazapine (Remeron) tablet 7.5 mg 7.5 mg Oral Nightly May Wang DO [Held by provider] mometasone-formoterol (Dulera 200) 200-5 MCG/ACT inhaler 2 puff 2 puff Inhalation BID Ana Rosa Edie Carlin, DO mupirocin (Bactroban) 2 % ointment 1 Application 1 Application Nasal BID Ana Rosa Edie Carlin, DO 1 Application at 08/12/242049 ondansetron [...] 2 puff 2 puff Inhalation DailyAmanda Edie Carlin, DO TECHNICAL ASPECTS: This continuous scalp EEG study with video was carried out at [facility]. Scalp electrodeswere positioned in person by an office technologist, following patient education, according to the 10-20 International system of electrode placement and maintained for integrity and quality of the recording. . EEG data with video was recorded continuously and digitally stored. The office technologist reviewed all automated detections and manual [...] diffuse delta-theta range (1.5-7 Hz, 20-35 uV) ioasyxdjo-rt-wqyigttczyoods slow wave activity was seen unresponsive to [...] EEG with video is abnormal. Continuous diffuse qiyttboo-vy-gchmhi diffuse slowing is seen unresponsive to stimulation. REM sleep architecture is observed. At times, fronto-centrally predominant fast activity is observed reminiscent of sleep spindles. No interictal epileptiform activity nor seizures are observed. The findings are supportive of a ywdaignh-li-rhvriv global encephalopathy non- specific as to etiology. Will continue video-EEG monitoring to evaluate the evolution of this encephalopathy. Jasmeet Arevalo, PhD Clinical Neurophysiologist Armen Diaz MD PhD Epilepsy Attending documented in this [facility]10-10-2024 NoteSoft restraints removed at this time. Dr. Hoang made aware. Clari Bronson RN 08/12/24 [facility]10-10-2024 Emergency department Note* Clari Bronson RN - 08/12/2024 4:34 PM EDT Soft restraints removed at this time. Dr. Hoang made aware. Clari Bronson RN 08/12/241633 * Margret Doan RN - 08/12/2024 4:33 PM EDT Report given to T3 RN. Margret Doan RN 08/12/24 1634 * Clari Bronson RN - 08/12/2024 3:16 PM EDT ICU at bedside. Clari Bronson RN 08/12/24 1517 * Lucina Galvan DO - 08/12/2024 11:35 AM EDT Emergency Department Encounter [facility] EMERGENCY DEPT Patient: Sandy Deng : 1960 [...] [employer] Lucina Galvan DO 08/12/24 5722 * Sapphire Bianchi PA-C - 08/12/2024 11:35 AM EDT Emergency Department Encounter [facility] Emergency Department Patient: Sandy Deng : [...] pneumonia, andrespiratory failure. Patient was discharged to [facility] days ago, and today was [...] tablet by mouth 2 times daily. Cholecalciferol ([facility] Vitamin D3) 25 MCG (1000 [...] 10 days. Insulin Disposable Pump (Omnipod 5 TtnD3T0 Intro Gen 5) kit Insulin Disposable Pump (Omnipod 5 UvvG1O7 Pods Gen 5) misc insulin glargine (Lantus) [...] GRAMS BY MOUTH EVERYDAY FOR ONE DAY Margareth Peck 200-62.5-25 MCG/ACT aerosol powder No Known Allergies [...] Psychiatric: Mood and Affect: Mood normal. Screenings: Grgeory Coma Scale Best Eye Response: To pain Best Verbal Response: Confused Best Motor Response: Withdraws to pain [place] Coma Scale Score: 10 NIH Stroke Scale 1A. Level of Consciousness: Requires Repeated Stimulation to Arouse or Responds to Pain 1B. Ask Month and Age: No Questions Right 1C. Blink Eyes & Squeeze Hands: Performs 0 Tasks 2. Best Gaze: Normal 3. Visual: No Visual Loss 4. Facial Palsy: Normal Symmetrical Movements 5A. Motor - Left Arm: Some Effort Against [place] 5B. Motor - Right Arm: Some Effort Against [place] 6A. Motor - Left Leg: Some Effort Against [place] 6B. Motor - Right Leg: Some Effort Against [place] 7. Limb Ataxia: Absent 8. Sensory Loss: [...] Abnormal Glucose 259 (*) Narrative: Performed by: [facility], [address] [place], [place] [id number] CLIA ID: [id number] POCT GLUCOSE METER UNSOLICITED RESULTS - Abnormal Glucose 252 (*) Narrative: Performed by: [facility], [address] [place] [id number] CLIA ID: [id number] POCT GLUCOSE METER UNSOLICITED RESULTS - Abnormal Glucose 253 (*) Narrative: Performed by: [facility], [address] [place] [address] CLIA ID: [id number] BLOOD CULTURE - Normal Blood Culture Blood [...] ACID WITH REFLEX PREPARE RBC PRODUCT CODE [id number] Unit Number [id number] Unit ABO O Unit RH POS Crossmatch interpretation COMP Dispense Status Transfused Blood Expiration Date Product Blood Type 5100 Unit Volume 300 PREPARE RBC PRODUCT CODE [id number] Unit Number [id number] Unit ABO O Unit RH POS Crossmatch [...] Department Physician in the absence of a lead caster helper. Please see Epiphany for interpretation of EKG. [...] 75 mg ( Oral Dose Auto Held 08/20/24 09) fluticasone (Flonase) nasal spray 2 spray ( Each Nostril Dose Auto Held 08/20/24 09) gabapentin (Neurontin) capsule 200 mg ( Oral [...] puff ( Inhalation Dose Auto Held 08/20/24 09) mupirocin (Bactroban) 2 % ointment 1 Application [...] Medication List Sapphire Bianchi PA-C [facility] Sapphire Bianchi PA-C 08/13/2412 Cosigned by Lucina Galvan DO at 08/13/2024 2:40 PM EDT * Yassine Montero DO - 08/12/2024 11:35 AM EDT Emergency Department Encounter Location: [facility] EMERGENCY DEPT Patient: Sandy Deng : [...] and respiratory failure. She was discharged to [facility] days ago after beingadmitted for [...] 445 ms QTC Interval 450 ms P [place] 76 degrees QRS [place] -24 degrees T Wave [place] 51 degrees MS Interval 162 ms XR [...] status and respiratoryfailure. She was discharged to [facility] 2 days ago after being admitted [...] are mis-transcribed.) Yassine Montero DO Acute [facility] Yassine Montero DO Resident 08/12/24 1611 Cosigned by Lucina Galvan DO at 08/12/2024 5:46 PM EDT documented in this [facility]10-10-2024 History and physical note* Ana Rosa [...] been recently discharged 2 days ago to [facility], and today was found altered, [...] Diagnosis Date COPD (chronic obstructive pulmonary disease) ([facility]) Diabetic neuropathy ([facility] Hyperlipidemia Myocardial infarct ([facility]) Stage 4 chronic kidney disease ([facility]) Type 1 diabetes ([facility]) Past Surgical History: Procedure Laterality Date CORONARY [...] Continuous [facility]ucose [facility]Dexcom [facility] Provider, Continuous Glucose Transmitter (Dexcom G6 transmitter) [facility] 07/25/24 Historical Provider, [...] Espana DO Insulin Disposable Pump (Omnipod 5 NjuD3C6 Intro Gen 5) kit 12/03/23 Historical Provider, Insulin Disposable Pump (Omnipod 5 TtqF2L0 Pods Gen 5) misc 07/15/24 Historical Provider, [...] MOUTH EVERYDAY FOR ONE DAY Historical Provider, Trelegy Ellipta 200-62.5-25 MCG/ACT aerosol powder 05/12/24 Historical Provider, gabapentin (Neurontin) 800 MG tablet 400 mg noon 800 mg at night 08/10/24 Historical ProviderMD HumaLOG KWIKPEN 100 UNIT/ML pen injection Inject 12 units 3 times a day by subcutaneous route. 08/10/24 Historical ProviderMD metoprolol tartrate (Lopressor) 50 MG tablet Take [...] Normal [] Scar/Lesion/Mass Inspection of teeth/lips/gums Dentition: [][place] Teeth []Dentures Lips/Gums: []Intact []Lesion Present Mucosa: [][place]urel []Moist []Dry Neck: External Appearance Overall Appearance: [...] within last 24 hours- BMP: Recent Labs 08/10/243408/11/24 0608/12/24 1337 NA 138 133* 132* K 4.2 4.6 3.6 CL 102 98 100 CO2 33* 23 28 BUN 25* 25* 19* CREATININE 2.85* 2.31* 2.38* CALCIUM 6.6* 6.7* 6.6* MG 1.8 -- -- PHOS 4.5 -- -- LFTs: No results for input(s): AST, ALT, PROT, ALBUMIN, BILITOT, BILIRUBINU, ALKPHOS,LIPASE in the last 72 hours. Glucose: Recent Labs 08/09/24200408/10/24 0035 08/10/24 0727 08/10/24 0735 08/10/24 0824 [...] ABGs: Recent Labs 08/12/24 1337 08/12/24 1604 [id number] Nasal cannula Bi-PAP Lactic Acid: Recent Labs [...] PM EDT I have personally performed a zbxm-th-jxvx diagnostic evaluation on this patient on date of qmbamse65/10/24. History, labs, imaging studies, and electronic medical record have been reviewed by me. This note documented by the [x]seasonal warehouse associate []TONJA reflects my history, exam, and medical [...] so far today, excludingprocedures. documented in this [facility]10-10-2024 [facility] 08-10-2024 Nurse Note* Jim Rodriguez RN - 08/10/2024 2:13 PM EDT [facility] verified with Dr. Espana that pt is leavingwith johnson catheter. * Rene Euceda - 08/10/2024 9:05 AM EDT Patient Name: Sandy Deng Patient : 1960 Acct: [id number] Date of Admission: 07/26/2024 Room[facility]Bed: [facility] B Code Status: Full Code Allergies: [...] - Before each treatment: Dialysis Machine No.: [id number] RO Machine Number: [id number] Dialyzer Lot No.: [id number] Tubing Lot Number: [id number] All Connections Secure: Yes Venous Parameters Set: Yes Arterial Parameters Set: Yes NS Bag: Yes Saline Line Double Clamped: Yes Dialyzer: Nipro Prime Volume (mL): 200 mL RO Machine Number: [id number] RO Machine Log Sheet Completed: Yes Machine Alarm Self Test: Completed, Passed (08/10/24944) Air Foam Detector: Tested, Proper Function, pH Reading Extracorporeal Circuit Tested for Integrity: Yes Machine Conductivity: 13.7 Manual Conductivity: 13.6 Machine Ph: 7 Manual Ph: 7.2 Bleach Test (Neg): Yes Bath Temperature: 36 C (96.8 F) Conductivity Meter Serial #: [id number] Machine Functioning Alarm Free? Yes Dialysis Bath: K+ (Potassium): 2 Ca+ (Calcium): 2.5 Na+ (Sodium): 136 HCO3 (Bicarb): 36 Bicarbonate Concentrate Lot No.: [id number] Acid Concentrate Lot No.: [id number] Chlorine Testing - Before each treatment and [...] (mmHg) TMP DFR Access Visible Intra-Hemodialysis Comments 10/08/24 0859 -- -- -- -- -- -- [...] 600 Yes pt resting, lines secure, removed [id number] 08/10/24 1115 350 mL/min 970 ml/hr -160 [...] [facility] 06[facility]- 1mg IM glucagon given per resident. 0647- glucose confirmation came back at 216. 0654- D5 infusion discontinued at this time. * Yenny Keller RN - 08/07/2024 8:51 PM EDT Patient Name: Sandy Deng Patient : 1960 Acct: [id number] Date of Admission: 07/26/2024 Room/Bed: [facility] B Code Status: Full Code Allergies: [...] HGB 8.1 (L) 08/07/2024105 HGB 7.1 07/31/2024 0605 HCT 26.7 (L) 08/07/2024105 PLT 128 (L) 08/07/2024105 NA 134 (L) 08/07/2024105 K 4.2 08/07/2024105 CL 102 08/07/2024105 CO2 31 (H) 08/07/2024105 BUN 23 (H) 08/07/2024105 CREATININE 2.07 (H) 08/07/2024105 CALCIUM 6.9 (L) 08/07/2024105 PHOS 3.7 08/07/2024105 IV Drips and Rate/Dose Safety - Before each treatment: Dialysis Machine No.: [id number] RO Machine Number: [id number] Dialyzer Lot No.: [id number] Tubing Lot Number: [id number] All Connections Secure: Yes Venous Parameters Set: Yes Arterial Parameters Set: Yes NS Bag: Yes Saline Line Double Clamped: Yes Dialyzer: Nipro Prime Volume (mL): 200 mL RO Machine Number: [id number] RO Machine Log Sheet Completed: Yes Machine Alarm Self Test: Completed, Passed (1615) (08/07/24 1630) Air Foam Detector: pH Reading, Proper Function, Tested Extracorporeal Circuit Tested for Integrity: Yes Machine Conductivity: 13.6 Manual Conductivity: 13.6 Machine Ph: 7 Manual Ph: 7 Bleach Test (Neg): Yes Bath Temperature: 36 C (96.8 F) Conductivity Meter Serial #: [id number] Machine Functioning Alarm Free? Yes Dialysis Bath: K+ (Potassium): 2 Ca+ (Calcium): 2.5 Na+ (Sodium): 136 HCO3 (Bicarb): 36 Bicarbonate Concentrate Lot No.: [id number] Acid Concentrate Lot No.: [id number] Chlorine Testing - Before each treatment and [...] Name: Sandy Deng Patient : 1960 Acct: [id number] Date of Admission: 07/26/2024 Room[facility]Bed: [facility] A Code Status: Full Code Allergies: [...] Alert (0) X3 Regular Nasal cannula Diminished [place] Warm;Dry Soft;Flat Present Other (Comment) Other (Comment) [...] - Before each treatment: Dialysis Machine No.: [id number] RO Machine Number: [id number] Dialyzer Lot No.: [id number] Tubing Lot Number: [id number] All Connections Secure: Yes Venous Parameters Set: Yes Arterial Parameters Set: Yes NS Bag: Yes Saline Line Double Clamped: Yes Dialyzer: Nipro Prime Volume (mL): 200 mL RO Machine Number: [id number] RO Machine Log Sheet Completed: Yes Machine Alarm Self Test: Completed, Passed (2103) (08/05/242103) Air Foam Detector: Tested, Proper Function Extracorporeal Circuit Tested for Integrity: Yes Machine Conductivity: 13.5 Manual Conductivity: 13.4 Manual Ph: 7.8 Bleach Test (Neg): Yes Bath Temperature: 36 C (96.8 F) Conductivity Meter Serial #: [id number] Machine Functioning Alarm Free? Yes Dialysis Bath: K+ (Potassium): 2 Ca+ (Calcium): 2.5 Na+ (Sodium): 136 HCO3 (Bicarb): 36 Bicarbonate Concentrate Lot No.: [id number] Acid Concentrate Lot No.: [id number] Chlorine Testing - Before each treatment and [...] (mmHg) TMP DFR Access Visible Intra-Hemodialysis Comments 08/05/246 200 mL/min 500 ml/hr -80 mmHg 80 [...] -- -- 73 20 100 % -- 08/05/24 2126 (!) 142/36 -- -- 72 20 100 % -- 08/05/24 2115 125/51 -- -- 71 18 100 % -- 08/05/242103 -- -- -- 74 21 100 % -- 08/05/24 2100 122/53 -- -- 70 20 100 % -- 08/05/24 2050 120/52 36.4 C (97.6 F) -- 71 [...] blanchable erythema. Prevention Measures in place, including: [place] sheet with pillows/wedges, Foam heel protectors (changed), [...] Name: Sandy Deng Patient : 1960 Acct: [id number] Date of Admission: 07/26/2024 Room/Bed: T2-213/T2-213 A [...] Results Component Value Date/Time WBC 10.8 (H) 08/03/202411/2023 HGB 8.5 (L) 08/03/202421 HGB 7.1 07/31/2024 0605 HCT 28.6 (L) 08/03/202421 PLT 210 08/03/202421 NA 137 08/03/202421 K 4.3 08/03/202421 CL 110 (H) 08/03/202421 CO2 26 08/03/202421 BUN 28 (H) 08/03/202421 CREATININE 2.29 (H) 08/03/202421 CALCIUM 7.4 (L) 08/03/202421 PHOS 3.4 08/03/202421 IV Drips and Rate/Dose Safety - Before each treatment: Dialysis Machine No.: [id number] RO Machine Number: [id number] All Connections Secure: Yes Venous Parameters Set: Yes Arterial Parameters Set: Yes NS Bag: Yes Saline Line Double Clamped: Yes Dialyzer: Nipro Prime Volume (mL): 200 mL RO Machine Number: [id number] RO Machine Log Sheet Completed: Yes Machine Alarm Self Test: Completed, Passed (08/03/24 1051) Air Foam Detector: Tested, Proper Function, pH Reading Extracorporeal Circuit Tested for Integrity: Yes Machine Conductivity: 13.7 Manual Conductivity: 13.6 Manual Ph: 7 Bleach Test (Neg): Yes Bath Temperature: 36 C (96.8 F) Conductivity Meter Serial #: [id number] Machine Functioning Alarm Free? Yes Dialysis Bath: [...] -120 mmHg 140 mmHg 80 600 Yes gearcase assembler RN at bedside to speak woth pt [...] and report given to Primary RN at 4766. Primary RN (First Initial, Last Name, Title): K Csepe RN Education Person Educated: Patient Knowledge Base: [...] paused d/t access line clotting at approximately 8083-6381. Trouble shooting attempted. Cath flow ordered and given at 0646. documented in this [facility]10-08-2024 History of Present illness Narrative* Saroj Gaffney MD - 08/10/2024 12:17 PM EDT Images from the original note were not included. Nephrology Progress Note Patient: Sandy Deng Room number: [id number] B Date of Admit: 07/26/2024 LOS: 15 days Admitting physician: Ino Conte MD Referring physician: Fly De La Garza DO Outpatient Bench Loom Weaver: Christy Huerta DO Assessment/Plan: 63 year old [...] last (04/26) Cr 2.4 eGFR 20, 24 dpskvmmxe=9841 mg. -Suspected ATN in setting of infection/HD instability on arrival -FeNa 1.2% on arrival -c3 56, c4 10 (both low) 07/27, ?IRGN -UA 08/09 turbid, loaded yeast, mod bacteria, >100 WBCs/RBCs, +500 LE -UPCR 2.59 g/g- likely inaccurate in setting of urinary contamination -Repeat c3/ in process -Currently on TTS dialysis schedule [...] mg IV lasix Anemia: Hgb 7.8 Access: [facility] 07/29 Recommendations: -HD today, continue TTS for now -Can continue lasix on HD off days to assist volume removal -Continue strict I/Os and daily renal function panel to monitor for recovery -Await repeat complements Thank you for this consult, we will continue to follow. Please call or page if any questions Located Within [facility] Pager: [phone] Office: [phone]. Office Subjective: Interval history/events: Seen and evaluated [...] with clean dressing intact LABS: Recent Labs 08/08/241608/09/243408/10/2434 WBC 7.6 7.7 6.0 HGB 8.7* 8.1* 7.8* HCT 28.9* 26.6* 26.2* MCV 95.7 94.7 95.6 PLT 118* 108* 95* No results found for: IRON, TIBC, FERRITIN No results found for: [id number], FOLATE Recent Labs 08/08/241608/09/243408/09/2413 08/10/243408/10/24 0735 NA 134* 136 -- 138 -- [...] PHOS 4.5 08/10/2024 No components found for: [id number] Diagnostic Studies: CXR 08/08 Findings: Right IJ [...] Type 1 diabetes. Initially patient presented to [facility] on 07/23 [...] the nightstand. Pt was then transferred to [facility]. Initial infectious workup returned with CTX-M [...] (04/26) Cr 2.4 eGFR 20, 24 hr unupdoq=2064 mg. - On admit, (07/26) Cr 4.56, [...] evaluated at bedside; recommend continuation of acute [place] diet - Monitor adequacy of PO for [...] and C4 complement Disposition: Approved 08/09-08/16 to [facility]. Transport arranged for today at 2 [...] case she was type I. [facility]. 7AM-5PM: contact resident on [facility] Med A (find by hovering over attending's name on left side of patient's chart) 5PM-7AM: contact Isabella stanton * Sada Fernandez, RD - 08/09/2024 4:36 PM EDT Nutrition Assessment Type and Reason for Visit: Reassess Nutrition Recommendations/Plan: Continue current diet per [place]. Per MNT, will discontinue Ensure d/t thickened [...] mass loss Fluid Accumulation: Mild Extremities, Generalized Surgical Technician Strength: Not Performed Nutrition Assessment: Pt PMH of COPD, diabetic neuropathy, hx of NSTEMI, stage 4 CKD (on HD TTS), and Type 1 diabetes. Initially patient presented to [facility] on 07/23 [...] the nightstand. Pt was then transferred to [facility]. Initial infectious workup returned with CTX-M Pseudomonas and S aureus identified on pneumonia PCR. Patient went into septic shock, requiring pressors, now resolved. Patient no longer on antibiotics. Patient saturating well on 3-4L NC. Home O2 requirement of 3L. Pt first advanced to PO diet 08/01; advanced to Regular/nectar thick per [place] recs today. Pt was sleepingat time of RD assessment and did not wake to name call. No trays at bedside to assess. Estimated Daily Nutrient Needs: Energy Requirements Based On: Kcal/kg Weight Used for Energy Requirements: [place] Weight for Energy Calculation (kg): 59 kg Total Energy Requirements (kcals/day): 25-30 kcals/kg = 3664-5595 kcals/day Weight Used for Protein Requirements: [place] Weight in Kg Used for Protein Requirements: [...] Nutrition Therapies: Adult diet Regular; Mildly Thick ([place]) Current Oral Intake Average Meal Intake: 76-100% (per flowsheet) Average Supplements Intake: None Ordered Anthropometric Measures: Height: 167.6 cm (5' 5.98) Current Body Weight: 57.2 kg (126 lb) (08/07) Weight Source: Bed Scale Admission Body Weight: 48 kg (105 lb 13.1 oz) [place] Body Weight (lbs) (Calculated): 130 lbs [place] Body Weight (Kg) (Calculated): 59 kg % [place] Body Weight (Calculated): 105.1 % BMI (kg/m2) [...] to determine Sada Fernandez RD, LD Contact: [phone] * Saroj Gaffney MD - 08/09/2024 1:34 PM EDT Images from the original note were not included. Nephrology Progress Note Patient: Sandy Dneg Room number: [id number] B Date of Admit: 07/26/2024 LOS: 14 days Admitting physician: Ino Conte MD Referring physician: Fly De La Garza DO Outpatient Bench Loom Weaver: Christy Huerta DO Assessment/Plan: 63 year old [...] last (04/26) Cr 2.4 eGFR 20, 24 kzcyozdet=9616 mg. -Suspected ATN in setting of infection/HD [...] Please call or page if any questions Located Within [facility] Pager: [phone] Office: [phone]. Office Subjective: Interval history/events: Seen at bedside [...] IRON, TIBC, FERRITIN No results found for: [id number], FOLATE Recent Labs 08/07/24 0106 08/08/24 0017 08/09/24 0035 08/09/24 06 NA 134* 134* 136 -- K 4.2 [...] PHOS 4.1 08/09/2024 No components found for: [id number] Diagnostic Studies: CXR 08/08 Findings: Right IJ [...] not included. Speech-Language Pathology SPEECH LANGUAGE PATHOLOGY [facility] Dysphagia Treatment Note Patient Name: Sandy Deng Evaluation Date: 08/09/2024 Date of : 1960 Admission Date: 07/26/2024 4:17 PM Age: 63 y.o. Room/Bed: [facility] B Subjective Patient was able to awaken but appeared somnolent. Family and RN reported patient with decreased POintake with current diet restrictions. Current Diet: Dietary Orders (From admission, onward) Start Ordered 08/04/24 1610 Adult diet Dysphagia - Pureed; Mildly Thick ([place]) Diet effective now Comments: Medications crushed and placed in pureed foods. Question Answer Comment Diet type Dysphagia - Pureed Fluid consistency Mildly Thick ([place]) 08/04/24 1611 08/03/24 1639 Supplement:PM Snack, HS [...] for dietadvancement. Plan & Recommendations Continue acute [place] therapy per initial plan of care and [...] Start: 08/04/24 Expected End: 08/18/24 Therapy Time [place] Individual Minutes Time In: 1125 Time Out: 1135 Minutes: 10 Shanti Bianchi MA, CCC/[place] * Amy Dorado, LINK TRAINER MAINTENANCE MAN - 08/09/2024 8:47 AM EDT Images from the original note were not included. PHYSICAL THERAPY [facility] Treatment Note Name/MRN: Sandy Deng ([id number]) Date of : 1960 Age: 63 y.o. [...] SBA for short periods. Standing with this LINK TRAINER MAINTENANCE MAN directly in front of pt, postural sway, BLE weakness and instability, min/mod assist for balance. Exercises Exercises Quad Sets: Adebayo x10 reps Heelslides: Adebayo x10 reps Gluteal Sets: Adebayo x10 reps Hip Abduction: Adebayo x10 reps Knee Long Arc Quad: Adebayo x10 reps Ankle Pumps: and ankle circles Aedbayo x10 reps Comments: increase time, rest breaks [...] Treatment Minutes: 26 Minutes (tp; fa) Amy Dorado PTA * Khai Espana, DO - 08/09/2024 8:03 [...] Type 1 diabetes. Initially patient presented to [facility] on 07/23 [...] the nightstand. Pt was then transferred to [facility]. Initial infectious workup returned with CTX-M [...] (04/26) Cr 2.4 eGFR 20, 24 hr taqojjv=6196 mg. - On admit, (07/26) Cr 4.56, [...] evaluated at bedside; recommend continuation of acute BAGGAGE [place]TER [place] therapy - Diet order of Regular solids [...] chart) 5PM-7AM: contact AI3 res * Jamey Muro OT - 08/08/2024 10:44 AM EDT Images from the original note were not included. OCCUPATIONAL THERAPY [facility] Treatment Note Name/MRN: Sandy Deng ([id number]) Date of : 1960 Age: 63 y.o. [...] original note were not included. PHYSICAL THERAPY [facility] Treatment Note Name/MRN: Sandy Deng ([id number]) Date of : 1960 Age: 63 y.o. [facility] Discharge Recommendation: IP Rehab Equipment Needed: [...] entire session. Saroj Amezcua, PT * Khai Ephraim Espana, DO - 08/08/2024 8:26 AM EDT [...] Type 1 diabetes. Initially patient presented to [facility] on 07/23 [...] the nightstand. Pt was then transferred to [facility]. Initial infectious workup returned with CTX-M [...] (04/26) Cr 2.4 eGFR 20, 24 hr rruqscb=1656 mg. - On admit, (07/26) Cr 4.56, [...] evaluated at bedside; recommend continuation of acute BAG[place] therapy - Diet order on pureed solids [...] at any point. 7AM-5PM: contact resident on [facility] Med A (find by hovering over [...] days Referring physician: Ino Conte MD Outpatient Bench Loom Weaver: Christy Huerta DO ASSESSMENT/PLAN: UMA on CKD 4 - Cr has been 2.4-2.8, last (04/26) Cr 2.4 eGFR 20, 24 hr xifhmow=1561 mg. - On admit, (07/26) Cr 4.56, [...] initial consultation. Interval history reviewed: transferred to [facility] Patient reports breathing comfortably Appetite has [...] IRON, TIBC, FERRITIN No results found for: [id number], FOLATE No results found for: COLORU, CLARITYU, [...] LABFUNG IMAGING: POCT glucose meter Performed by: [facility], [address] [place] [address] CLIA ID: [id number] Signed: Jose Carlos Medrano MD Nephrology Located Within [facility] ([facility]) Pager: [phone] Office Office * Khai Espana DO - 08/07/2024 8:18 AM EDT Med Team Progress Note Sandy Deng : 1960(63 y.o.) Date: August 07, 2024 Med Team: Frank Attending: Dr. De La Garza Chief Complaint: Brain bleed Subjective: Sandy Deng is a 63 yo F with a PMH of COPD, diabetic neuropathy, hx of NSTEMI, stage 4 CKD (on HD TTS), and Type 1 diabetes. Initially patient presented to [facility] on 07/23 [...] the nightstand. Pt was then transferred to [facility]. Initial infectious workup returned with CTX-M [...] (04/26) Cr 2.4 eGFR 20, 24 hr pfwdepr=8896 mg. - On admit, (07/26) Cr 4.56, [...] evaluated at bedside; recommend continuation of acute BAG[place] therapy - Diet order on pureed solids [...] of patient's chart) 5PM-7AM: contact 3 maximino * Elle Isreal PTA - 08/06/2024 2:28 PM EDT Images from the original note were not included. PHYSICAL THERAPY [facility] Treatment Note Name/MRN: Sandy Deng ([id number]) Date of : 1960 Age: 63 y.o. [...] Risk Score: 60 (High Risk) Precautions/Restrictions: Lines/Drains/Airways: JEAN-PAUL, johnson, [place] 2L [...] Timed Code Treatment Minutes: 11 Minutes (FA) LINK TRAINER MAINTENANCE MAN wore PPE in compliance with hospital guidelines and regulation when treating this patient. Elle Israel PTA * GUILLERMO Dorantes - 08/06/2024 11:26 AM EDT Images from the original note were not included. OCCUPATIONAL THERAPY [facility] Treatment Note Name/MRN: Sandy Deng ([id number]) Date of : 1960 Age: 63 y.o. [...] (Funct--1; Self--1) GUILLERMO Taylor * Shanti Bianchi, RENATO - 08/06/2024 10:26 AM EDT Images from the original note were not included. Speech-Language Pathology SPEECH LANGUAGE PATHOLOGY [facility] Dysphagia Treatment Note Patient Name: Sandy Deng Evaluation Date: 08/06/2024 Date of : 1960 Admission Date: 07/26/2024 4:17 PM Age: 63 y.o. Room[facility]: [facility] A Subjective Patient was awake and cooperative. Current Diet: Dietary Orders (From admission, onward) Start Ordered 08/04/24 1610 Adult diet Dysphagia - Pureed; Mildly Thick ([place]) Diet effective now Comments: Medications crushed and placed in pureed foods. Question Answer Comment Diet type Dysphagia - Pureed Fluid consistency Mildly Thick ([place]) 08/04/24 1611 08/03/24 1639 Supplement:PM Snack, HS [...] wheat. Plan & Recommendations Plan: Continue acute BAGGAGE [place]TER [place] therapy per initial plan of care and [...] x 16. Plan & Recommendations Continue acute BAGGAGE [place]TER [place] therapy per initial plan of care and [...] Start: 08/04/24 Expected End: 08/18/24 Therapy Time B[facility] Individual Minutes Time In: 1000 Time Out: 1010 Minutes: 10 Shanti Bianchi MA, CCC/B[facility] * GUILLERMO Dorantes - 08/06/2024 8:02 AM EDT Images from the original note were not included. OCCUPATIONAL THERAPY [facility] Name/MRN: Sandy Deng ([id number]) Date: 08/06/2024 Hold OT this a.m.; HgB [...] Type 1 diabetes. Initially patient presented to [facility] on 07/23 [...] the nightstand. Pt was then transferred to [facility]. Initial infectious workup returned with CTX-M [...] evaluated at bedside; recommend continuation of acute [place] therapy - Diet order on pureed solids [...] original note were not included. OCCUPATIONAL THERAPY [facility] Treatment Note Name/MRN: Sandy Deng ([id number]) Date of : 1960 Age: 63 y.o. [...] assist due to retro-grade balance Device(s) used: [facility] Cognition - Arousal/alertness: appropriate responses to stimuli [...] tested positive for COVID on 07/24. At [facility] she had worsening hypoxia and was placed on NIV but failed. Was ultimately intubated. Noted to be hypotensive and started on levophed. Ptwas transferred to [facility] for higher level of care. On [...] Normal [] Scar/Lesion/Mass Inspection of teeth/lips/gums Dentition: []Choct[place] Teeth []Dentures Lips/Gums: [x]Intact []Lesion Present Mucosa: [x]Yaurel [x]Moist []Dry Neck: External Appearance Overall Appearance: [...] 72 hours. CBC: Recent Labs 08/03/24 0022 08/04/2431408/05/24 0256 WBC 10.8* 8.5 7.4 HGB 8.5* 8.3* 7.4* HCT 28.6* 26.5* 23.6* PLT 210 178 168 MCV 92.3 91.1 90.4 RDW 18.1* 17.4* 17.7* ABGs: No results for input(s): PHART, DTO2WIJ, PO2ART, HXN0HOS, SO2ART, E6LYJLIQ in thelast 72 hours. Lactic Acid: Recent Labs 08/05/24255 LACTATE 0.5* INR: No results for input(s): [...] evaluated at bedside; recommend continuation of acute BAG[place] therapy On Pureed solids and Mildly thick [...] original note were not included. PHYSICAL THERAPY [facility] Treatment Note Name/MRN: Sandy Deng ([id number]) Date of : 1960 Age: 63 y.o. [...] 1 TP) Jennifer Saldaña, SPT * Svitlana Albarran, CCC-[facility] - 08/05/2024 9:22 AM EDT Images from the original note were not included. Speech-Language Pathology SPEECH LANGUAGE PATHOLOGY [facility] Dysphagia Treatment Note Patient Name: Sandy Deng Evaluation Date: 08/05/2024 Date of : 1960 Admission Date: 07/26/2024 4:17 PM Age: 63 y.o. Room/Bed: T2-213/T2213 A Subjective Patient alert and cooperative. Seen [...] Adult diet Dysphagia - Pureed; Mildly Thick ([place]) Diet effective now Comments: Medications crushed and placed in pureed foods. Question Answer Comment Diet type Dysphagia - Pureed Fluid consistency Mildly Thick ([place]) 08/04/24 1611 08/03/24 1639 Supplement:PM Snack, HS [...] wheat. Plan & Recommendations Plan: Continue acute BAGG[place] therapy per initial plan of care and [...] Start: 08/04/24 Expected End: 08/18/24 Therapy Time [facility] Individual Minutes Time In: 852 Time Out: 909 Minutes: 17 Svitlana Albarran CCC-B[facility] * Jose Carlos Medrano MD - 08/05/2024 8:09 AM EDT Images from the original note were not included. NEPHROLOGY SOAP NOTE Visit date: 08/05/24, 8:10 AM Patient: Sandy Deng Room number: T2-213/T2-213 A Date of Admit: 07/26/2024 LOS: 10 days Referring physician: Saroj Sadler MD Outpatient Bench Loom Weaver: Christy Huerta DO ASSESSMENT/PLAN: UMA on CKD 4 - Cr has been 2.4-2.8, last (04/26) Cr 2.4 eGFR 20, 24 hr sliding=6333 mg. - On admit, (07/26) Cr 4.56, [...] IRON, TIBC, FERRITIN No results found for: [id number], FOLATE No results found for: COLORU, CLARITYU, [...] EDT Signed: Jose Carlos Medrano MD Nephrology Located Within [facility] ([facility]) Pager: [phone] Office Office * Janell Booker MD - [...] not included. Speech-Language Pathology SPEECH LANGUAGE PATHOLOGY [facility] Modified Barium Swallow Study Patient Name: Sandy Deng Evaluation Date: 08/04/2024 Date of : 1960 Admission Date: 07/26/2024 4:17 PM Age: 63 y.o. Room/Bed: T2-213/T2213 A IMPRESSION: The patient presents with moderate [...] aspiration. Pt would benefit from skilled acute BAG[place] services to initiate oropharyngeal exercises, ensure diet [...] cooperative. She had difficulty following directions. Radiologist: Ashok/Leola Prior MBSS?: No Baseline Diet: unable to [...] Diagnosis Date COPD (chronic obstructive pulmonary disease) ([facility]) Diabetic neuropathy ([facility]) Hyperlipidemia Myocardial infarct ([facility]) Stage 4 chronic kidney disease (HCC) Type 1 diabetes ([facility]) Past Surgical History: Past Surgical History: Procedure Laterality Date CORONARY ANGIOPLASTY WITH STENT PLACEMENT CORONARY ANGIOPLASTY WITH STENT PLACEMENT Admission Diagnosis: Patient Active Problem List Diagnosis Date Noted SDH (subdural hematoma) ([facility]) 07/26/2024 COPD (chronic obstructive pulmonary disease) ([facility]) 07/26/2024 Type 1 diabetes mellitus with kidney complication ([facility]) 07/26/2024 Myocardial infarction ([facility]) 07/26/2024 Hyperlipidemia 07/26/2024 Diabetic neuropathy associated with type 1 diabetes mellitus ([facility]) 07/26/2024 Stage 4 chronic kidney disease ([facility]) 07/26/2024 Pain: unable to answer but no evidence of same Reason for current admission: Found to have a subdural hematoma. She reportedly had a fall 1 month ago from bed. states she hit her head on the nightstand. She is on Plavix and ASA for a stent placed 7 years ago. Pt tested positive for COVID on 07/24. At [facility] she had worsening hypoxiaand was placed on NIV but failed. Was ultimately intubated. Noted to be hypotensive and started on levophed. Pt was transferred to [facility] for higher level of care. On [...] Start: 08/04/24 Expected End: 08/18/24 Therapy Time [facility] [facility] Individual Minutes Time In: 1350 Time Out: 1410 Minutes: 20 Shanti Bianchi MA, CCC/B[facility] * May Smiley Alma Deliafrancisca, DO - 08/04/2024 11:22 AM EDT ICU [...] tested positive for COVID on 07/24. At [facility] she had worsening hypoxia and was placed on NIV but failed. Was ultimately intubated. Noted to be hypotensive and started on levophed. Ptwas transferred to [facility] for higher level of care. On [...] Normal [] Scar/Lesion/Mass Inspection of teeth/lips/gums Dentition: []Choctaw Teeth []Dentures Lips/Gums: []Intact []Lesion Present Mucosa: []Yaurel []Moist []Dry Neck: External Appearance Overall Appearance: [...] hours- BMP: Recent Labs 08/02/24 0025 08/03/24 00208/04/24 0315 NA 134* 137 134* K 4.1 [...] 17.4* ABGs: No results for input(s): PHART, MWH0CFS, PO2ART, TVX9QBJ, SO2ART, X7QNPLVQ in thelast 72 hours. Lactic Acid: No [...] and Plan: Principal Problem: SDH (subdural hematoma) ([facility]) Active Problems: COPD (chronic obstructive pulmonary disease) (HCC) Type 1 diabetes mellitus with kidney complication (HCC) Hyperlipidemia Diabetic neuropathy associated with type 1 diabetes mellitus ([facility]) Assessment: Acute on Chronic Hypoxemic, Hypercapnic Resp [...] DVT Prophylaxis: Heparin subcutaneous Disposition: Transfer to [facility] I performed a history and physical [...] plan. Saroj Sadler MD * Svitlana Albarran [facility] - 08/04/2024 9:23 AM EDT Images from the original note were not included. Speech-Language Pathology SPEECH LANGUAGE PATHOLOGY [facility] Dysphagia Treatment Note Patient Name: [...] liquids. Plan & Recommendations Plan: Continue acute BAGGAGE [place]TER [place] therapy per initial plan of care and [...] Start: 08/04/24 Expected End: 08/18/24 Therapy Time BAG[place] [place] Individual Minutes Time In: 854 Time Out: 904 Minutes: 10 CASSIE Murrell * Shanti García, RD - 08/03/2024 4:36 [...] mass loss Fluid Accumulation: Mild Extremities, Generalized Surgical Technician Strength: Not Performed Nutrition Assessment: Pt is a 63-year-old female with multiple medical co-morbidities including Type I DM (on insulin pump), COPD on 4L home O2, CKD4, on ASA/Plavix who initially [facility] withacute respiratory distress and acute delirium. 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 She was found to be hypoxic and hypercarbic, and COVID positive. She continued to be delirious and did not tolerate NIV, and required intubation 07/27/24. A CT head was done to evaluate her altered mental status, and she was found to have a small acute right sided SDH vs. epidural hematoma. For this reason, [facility] wa consulted for further neurologic management [...] act but not able to answer questinos. BAGGAGE PORTER HEAD evaluated pt today 08/03/24 and recommends a soft and bitesized diet; pt is on same. Estimated Daily Nutrient Needs: Energy Requirements Based On: Kcal/kg Weight Used for Energy Requirements: [place] Weight for Energy Calculation (kg): 59 kg Total Energy Requirements (kcals/day): 25-30 kcals/kg = 3278-0347 kcals/day Weight Used for Protein Requirements: [place] Weight in Kg Used for Protein Requirements: [...] Weight: 48 kg (105 lb 13.1 oz) [place] Body Weight (lbs) (Calculated): 130 lbs [place] Body Weight (Kg) (Calculated): 59 kg % [place] Body Weight (Calculated): 105.1 % BMI (kg/m2) [...] Planning: Too soon to determine Shanti García RD,LD,[facility] Contact: *[phone] or Self-A-r-T Chat * Jose Carlos Medrano MD - 08/03/2024 1:32 PM EDT Images from the original note were not included. NEPHROLOGY SOAP NOTE Visit date: 08/03/24, 1:32 PM Patient: Sandy Deng Room number: T2-213/T2-213 A Date of Admit: 07/26/2024 LOS: 8 days Referring physician: Fly De La Garza DO Outpatient Bench Loom Weaver: Christy Huerta DO ASSESSMENT/PLAN: Non oliguric UMA on CKD 4 - Cr has been 2.4-2.8, last (04/26) Cr 2.4 eGFR 20, 24 hr wotkknw=7470 mg. - On admit, (07/26) Cr 4.56, CRRT initiation for severe acidosis in setting of hemodynamic instability 9/23-08/01. - now non-oliguric, transitioned to intermittent HD [...] IRON, TIBC, FERRITIN No results found for: [id number], FOLATE No results found for: COLORU, CLARITYU, [...] IMAGING: POCT glucose meter Performed by: [facility], [address] [place] [id number] CLIA ID: [id number] POCT glucose meter Performed by: [facility], [address] [place] [id number] CLIA ID: [id number] POCT glucose meter Performed by: [facility], [address] [place] [id number] CLIA ID: [id number] Signed: Jose Carlos Medrano MD Nephrology Located Within [facility] ([facility]) Pager: [phone] Office Office * RENATO Kern - 08/03/2024 9:46 AM EDT Images from the original note were not included. Speech-Language Pathology SPEECH LANGUAGE PATHOLOGY [facility] Dysphagia Treatment Note Patient Name: Sandy Deng Evaluation Date: 08/03/2024 Date of : 1960 Admission Date: 07/26/2024 4:17 PM Age: 63 y.o. Room/Bed: [facility] A Subjective Patient lethargic and cooperative. Seen [...] per dysphagia plan of care. Continue acute BAGGAGE [place]ORTER HEAD therapy per initial plan of care and [...] Start: 08/01/24 Expected End: 08/15/24 Therapy Time BAGG[place] [facility] [place] Individual Minutes Time In: 922 Time Out: 934 Minutes: 12 RENATO Kern * Jennifer Saldaña - 08/03/2024 9:36 AM EDT Images from the original note were not included. PHYSICAL THERAPY [facility] Initial Evaluation Name/MRN: Sandy Deng ([id number]) Evaluation Date: 08/03/2024 Date of : 1960 [...] 35 (Medium Risk) Precautions/Restrictions: Lines/Drains/Airways: PIV, johnson, [place] 2L (pt on 3L at home [...] Responsibilities: Independent Receives Help From: Spouse Active Auto Specialty Services Manager: N/A Prior Level of Function ADL Assistance: [...] Raw Score (No Stairs) : 10 JH-HLM -HL Score: Transferred to chair/commode Plan [...] Individual Co-treatment Time In 08 Time Out 0846 Minutes 33 Timed Code Treatment Minutes: 12 Minutes (1 FA) JEY Caldwell Patient's Physical Therapy Plan of Care supervision is transferred to a [facility] Physical Therapist. Goals and/or [...] tested positive for COVID on 07/24. At [facility] she had worsening hypoxia and was placed on NIV but failed. Was ultimately intubated. Noted to be hypotensive and started on levophed. Pt was transferred to [facility] for higher level of care. On [...] BP MAP 160/64 (08/03/24 0600) 92 (08/03/24 06) Arterial BP MAP 99/37 (07/31/24 1320) 54 mmHg (07/31/24 1320) Temp 36.4 C (97.6 F) (08/03/24 0000) Pulse 65 (08/03/24 0600) Resp 25 (08/03/24 06) SpO2 100 % (08/03/24 06) Weight 62 kg (136 lb 11 oz) (07/29/24 0500) BMI Body mass index is 22.06 kg/m . I/O: 08/02 0700 - 08/03 06 In: 787 [P.O.:120; I.V.:567] Out: 445 [Urine:445] [...] Normal [] Scar/Lesion/Mass Inspection of teeth/lips/gums Dentition: [x][place] Teeth []Dentures Lips/Gums: [x]Intact []Lesion Present Mucosa: [x][place]urel [x]Moist []Dry Neck: External Appearance Overall Appearance: [...] 18.1* ABGs: No results for input(s): PHART, SQJ6ZLD, PO2ART, NUH4JQM, SO2ART, Y9TUAFNT in the last 72 hours. Labs in [...] and Plan: Principal Problem: SDH (subdural hematoma) ([facility]) Active Problems: COPD (chronic obstructive pulmonary disease) ([facility]) Type 1 diabetes mellitus with kidney complication [...] for soft and bite sized diet per BAGGAGE [facility]. Has not expressed desire to eat. -Start [...] original note were not included. PHYSICAL THERAPY [facility] Name/MRN: Sandy Deng ([id number]) Date: 08/02/2024 Attempt Note. PT Eval and Treat order received. Per RN, pt eating and fatigued following OT. Pt states she reallytired and observed to have difficulty keeping eyes open. Pt educated on benefits of getting up in chair. Pt still would like to rest. Will continue to follow and re-attempt as able. Jennifer Saldaña, SPT * [place] Alana, CARPET FLOOR LAYER APPRENTICE - 08/02/2024 12:05 PM EDT [facility] Respiratory Care Department Progress Note [...] not included. Speech-Language Pathology SPEECH LANGUAGE PATHOLOGY [facility] Dysphagia Treatment Note Patient Name: [...] per dysphagia plan of care. Continue acute BAGG[place] therapy per initial plan of care and [...] Start: 08/01/24 Expected End: 08/15/24 Therapy Time B[facility] Individual Minutes Time In: 1057 Time Out: 1106 Minutes: 9 RENATO Kern * Jamey Muro OT - 08/02/2024 11:09 AM EDT Images from the original note were not included. OCCUPATIONAL THERAPY [facility] Initial Evaluation Name/MRN: Sandy Deng ([id number]) Evaluation Date: 08/02/2024 Date of : 1960 [...] Diagnosis Date COPD (chronic obstructive pulmonary disease) ([facility]) Diabetic neuropathy ([facility]) Hyperlipidemia Myocardial infarct ([facility]) Stage 4 chronic kidney disease ([facility]) Type 1 diabetes ([facility]) Past Surgical History: Past Surgical History: Procedure Laterality Date CORONARY ANGIOPLASTY WITH STENT PLACEMENT CORONARY ANGIOPLASTY WITH STENT PLACEMENT Admission Diagnosis: Patient Active Problem List Diagnosis Date Noted SDH (subdural hematoma) ([facility]) 07/26/2024 COPD (chronic obstructive pulmonary disease) ([facility]) 07/26/2024 Type 1 diabetes mellitus with kidney complication ([facility]) 07/26/2024 Myocardial infarction ([facility]) 07/26/2024 Hyperlipidemia 07/26/2024 Diabetic neuropathy associated with type 1 diabetes mellitus ([facility]) 07/26/2024 Stage 4 chronic kidney disease ([facility]) 07/26/2024 Medical Precautions: No active isolations Proper [...] Responsibilities: Independent Receives Help From: Spouse Active Auto Specialty Services Manager: N/A Prior Level of Function ADL Assistance: [...] Daily Activity Raw Score: 15 ADL [facility] G-Code Modifier: CK Plan Pt would benefit [...] of Care supervision is transferred to a [facility] Occupational Therapist. Goals and/or treatment plan was established in collaboration with patient/family/other representatives. * Karyn Jones MD - 08/02/2024 10:06 AM EDT Images from the original note were not included. Nephrology Progress Note Patient: Sandy Deng Room number: T2-213/T2-213 A Date of Admit: 07/26/2024 LOS: 7 days Referring physician: Saroj Sadler MD Outpatient Bench Loom Weaver: Christy Huerta Assessment/Plan: Mrs. Sandy Deng is a 63 year old female with PMH of CKD 4, DM type 1, HTN, CAD, COPD (3L [id number]), initially presenting with resp distress and delirium, Covid positive. She was eventuallyintubated. CT head showed a small right SDH. Consulted for UMA on CKD 4 - follows with Dr Wilson ([facility]). On review of available labs, Cr has been 2.4-2.8, last (04/26) Cr 2.4 eGFR 20, 24 hr bmxbtsh=4563 mg. On admit, (07/26) Cr 4.56, CRRT initiation for severe acidosis in setting of hemodynamic instability 07/26-08/01. Renal plan: Non oliguric UMA on CKD 4 - Cr has been 2.4-2.8, last (04/26) Cr 2.4 eGFR 20, 24 hr oocrkuq=0381 mg. - On admit, (07/26) Cr 4.56, [...] will start service tomorrow. Karyn Jones MD Located Within [facility] ([facility]) Pager [phone] Office phone: [phone] Office fax: [phone] 08/02/2024 Subjective Noted weekend events, episode of [...] 75 mL/hr, Last Rate: 75 mL/hr (08/01/245) Review of Systems: As above Physical Exam: [...] Catheter-Output (mL): 5 mL [REMOVED] Urethral Catheter Tvdddrbh-kkm-Tjnhqp (mL): 0 mL Urethral Catheter Straight-tip;Temperature probe-Output [...] tested positive for COVID on 07/24. At [facility] she had worsening hypoxia and was placed on NIV but failed. Was ultimately intubated. Noted to be hypotensive and started on levophed. Pt was transferred to [facility] for higher level of care. On [...] Normal [] Scar/Lesion/Mass Inspection of teeth/lips/gums Dentition: [x][place] Teeth []Dentures Lips/Gums: [x]Intact []Lesion Present Mucosa: [x]Yaurel [x]Moist []Dry Neck: External Appearance Overall Appearance: [...] 07/31/24 1216 07/31/24 1220 07/31/24 18007/31/24 1810 07/31/24200408/01/24 0002 08/01/24 0003 08/01/24 0608 [...] 07/30/24 0936 07/31/24 0605 PHART 7.399 7.335* BES7UOX 44.6 47.9* PO2ART 113.8* 143.8* QYQ7LHP 26.9* 25.0 T8LRBUCL 30% Oxygen Nasal cannula Labs in Last [...] and Plan: Principal Problem: SDH (subdural hematoma) (FORM[facility]LY [facility]) Active Problems: COPD (chronic obstructive pulmonary disease) ([facility]) Type 1 diabetes mellitus with kidney complication (HCC) Hyperlipidemia Diabetic neuropathy associated with type 1 diabetes mellitus ([facility]) Acute on Chronic Hypoxemic, Hypercapnic Resp Failure- [...] - Stop CRRT. HD on friday per nephrzea POND MD ISS D5 in NS as pt is not wanting to eat Anorexia Pt cleared for soft and bite sized diet per [facility]. Has not expressed desire to eat. -Start [...] PM EDT I have personally performed a kweq-mf-vgdr diagnostic evaluation on this patient on date of service08/02/24. History, labs, imaging studies, and electronic medical record have been reviewed by me. This note documented by the [x]seasonal warehouse associate []TONJA reflects my history, exam, and medical [...] tested positive for COVID on 07/24. At [facility] she had worsening hypoxia and was placed on NIV but failed. Was ultimately intubated. Noted to be hypotensive and started on levophed. Pt was transferred to [facility] for higher level of care. On [...] time. Was cleared for pureed diet by [facility]. Scheduled Meds:dexAMETHasone, 6 mg, IntraVENous, q24h Glycopyrrolate-Formoterol, [...] 07/31 0700 - 08/01 0659 In: 2298 [I.V.:1948] Out: 3089 [Urine:625] Ventilator: Resp Rate (Set): [...] Normal [] Scar/Lesion/Mass Inspection of teeth/lips/gums Dentition: [x]Choctaw Teeth []Dentures Lips/Gums: [x]Intact []Lesion Present Mucosa: [x]Yaurel [x]Moist []Dry Neck: External Appearance Overall Appearance: [...] 0936 07/31/24 0605 PHART 7.370 7.399 7.335* STR1RED 46.3* 44.6 47.9* PO2ART 114.1* 113.8* 143.8* YVZ4TLR 26.2* 26.9* 25.0 [id number] Vent 30% Oxygen Nasal cannula Labs in [...] and Plan: Principal Problem: SDH (subdural hematoma) ([facility]) Active Problems: COPD (chronic obstructive pulmonary disease) ([facility]) Type 1 diabetes mellitus with kidney complication [...] PM EDT I have personally performed a zcve-xf-mpfx diagnostic evaluation on this patient on date of service08/01/2024. History, labs, imaging studies, and electronic medical record have been reviewed by me. This note documented by the [x]seasonal warehouse associate []TONJA reflects my history, exam, and medical [...] days Referring physician: Kena Heath DO Outpatient Bench Loom Weaver: Christy Huerta Assessment/Plan: Mrs. Sandy Deng is a 63 year old female with PMH of CKD 4, DM type 1, HTN, CAD, COPD (3L N9krytfgpn), initially presenting with resp distress and delirium, Covid positive. She was eventuallyintubated. CT head showed a small right SDH. Consulted for UMA on CKD 4 - follows with Dr Wilson ([facility]). On review of available labs, Cr has been 2.4-2.8, last (04/26) Cr 2.4 eGFR 20, 24 hr yirtntb=1924 mg. On admit, (07/26) Cr 4.56, CRRT [...] Case discussed with BO. Joni Monson MD Located Within [facility] ([facility]) Office phone: [phone] Office fax: [phone] 08/01/2024 Subjective Patient seen this am during CRRT. Family at bedside. She had no new complaints, she appears confused, denied any pain, nausea or vomiting. Per RN, johnson replaced yesterday, patient was retaining 500 ml [...] Position: Pulse: 73 77 82 Resp: 17 22 Temp: TempSrc: SpO2: 100% 100% 100% [...] Catheter-Output (mL): 5 mL [REMOVED] Urethral Catheter Nysgvohx-mmh-Fdpygi (mL): 0 mL Urethral Catheter Straight-tip;Temperature probe-Output [...] not included. Speech-Language Pathology SPEECH LANGUAGE PATHOLOGY [facility] Dysphagia Treatment Note Patient Name: [...] Question: Medications? Answer: with enteral medications 07/31/24 170 Oxygen: Oxygen Therapy: Supplemental oxygen O2 Delivery [...] PO diet. Plan & Recommendations Continue acute [facility] therapy per initial plan of care and [...] Start: 08/01/24 Expected End: 08/15/24 Therapy Time [facility] Individual Minutes Time In: 0845 Time Out: 0900 Minutes: 15 Shanti Bianchi MA, CCC/[facility] * Joni Monson MD - 07/31/2024 2:48 PM EDT Images from the original note were not included. Nephrology Progress Note Patient: Sandy Deng Room number: T2-213/T2-213 A Date of Admit: 07/26/2024 LOS: 5 days Referring physician: Kena Heath DO Outpatient Bench Loom Weaver: Christy Huerta Assessment/Plan: Mrs. Sandy Deng is a 63 year old female with PMH of CKD 4, DM type 1, HTN, CAD, COPD (3L F9vyhshzqh), initially presenting with resp distress and delirium, Covid positive. She was eventuallyintubated. CT head showed a small right SDH. Consulted for UMA on CKD 4 - follows with Dr Wilson ([place]). On review of available labs, Cr has been 2.4-2.8, last (04/26) Cr 2.4 eGFR 20, 24 hr oqwakki=0666 mg. On admit, (07/26) Cr 4.56, CRRT [...] care of this patient. Joni Monson MD Located Within [facility] ([facility]) Office phone: [phone] Office fax: [phone] 07/31/2024 Subjective Patient seen this am during [...] Catheter-Output (mL): 5 mL [REMOVED] Urethral Catheter Ksskhxeu-obf-Zfwhfz (mL): 0 mL Urethral Catheter Straight-tip;Temperature probe-Output [...] not included. Speech-Language Pathology SPEECH LANGUAGE PATHOLOGY [facility] Bedside Swallow Evaluation Patient Name: Sandy Deng Evaluation Date: 07/31/2024 Date of : 1960 Admission Date: 07/26/2024 4:17 PM Age: 63 y.o. Room/Bed: T2/T2 A IMPRESSION: S/s oropharyngeal dysphagia. Intermittent overt [...] 08/01. Pt would benefit from skilled acute [facility] services to address further assess po intake [...] be evaluated. Dysphagia History: No history of [facility] services in EMR with retrospective chart review Baseline Diet: Regular Current Diet: Dietary Orders (From admission, onward) Start Ordered 07/30/241655 NPO diet without enteral medications Diet effective [...] List Diagnosis Date Noted SDH (subdural hematoma) ([facility]) 07/26/2024 COPD (chronic obstructive pulmonary disease) ([facility]) 07/26/2024 Type 1 diabetes mellitus with kidney complication ([facility]) 07/26/2024 Myocardial infarction (HCC) 07/26/2024 Hyperlipidemia 07/26/2024 Diabetic neuropathy associated with type 1 diabetes mellitus (HCC) 07/26/2024 Stage 4 chronic kidney disease (HCC) 07/26/2024 History of Present Illness: 63 year old female with a PMHx of COPD (3L O2 baseline), DM, CKD 4, HTN, CAD, PA (PCI with stents in 2017). at bedside. Pt was admitted to [facility] due to confusionand hallucinations. Pt has had episodes of staring off into space per family. Was found to have a subdural hematoma. She reportedly had a fall 1 month ago from bed. states she hit her head onthe nightstand. She is on Plavix and ASA for a stent placed 7 years ago. Pt tested positive for COVID on 07/24. Today at [facility] ICU she had worsening hypoxia and was placed on NIV but failed. Was ultimately intubated. Noted to be hypotensive and started on levophed. Pt was transferred to [facility] for higher level of care. On [...] clinical dysphagia evaluation Start: 07/31/24 Therapy Time [facility] Individual Minutes Time In: 1357 Time Out: 1419 Minutes: 22 RENATO Underwood * Joycelyn Diane DO - 07/31/2024 7:54 AM EDT ICU Progress Note Name: Sandy Deng : 1960(63 y.o.) Date: 07/31/24 Team: MICU Attending: Dr. Jones Subjective: Hospital Summary: 63 year old female with a PMHx of COPD (3L O2 baseline), DM, CKD 4, HTN, CAD, PA (PCI with stents in 2017). at bedside. Pt was admitted to [facility] due to confusion and hallucinations. Pt has had episodes of staring off into space per family. Was found to have a subdural hematoma. She reportedly had a fall 1 month ago from bed. states she hit her head on the nightstand. She is on Plavix and ASA for a stent placed 7 years ago. Pt tested positive for COVID on 07/24. Today at [facility] ICU she had worsening hypoxia and was placed on NIV but failed. Was ultimately intubated. Noted to be hypotensive and started on levophed. Pt was transferred to [facility] for higher level of care. On [...] (!) 10 (07/31/24 07) SpO2 99 % (07/31/24 07) Weight 62 kg (136 lb 11 oz) (07/29/24 0500) BMI Body mass index is 22.06 kg/m . I/O: 07/30 0700 - 07/31 0659 In: 2270 [I.V.:1577] Out: 8378 Ventilator: Oxygen Delivery: O2 Flow Rate (L/min): [...] Normal [] Scar/Lesion/Mass Inspection of teeth/lips/gums Dentition: []Choctaw Teeth []Dentures Lips/Gums: [x]Intact []Lesion Present Mucosa: [x]Yaurel [x]Moist []Dry Neck: External Appearance Overall Appearance: [...] 24 hours- BMP: Recent Labs 07/28/24 1257 07/28/24180707/30/24171407/31/24607/31/24 0605 NA 130* < > 132* 132* [...] not displayed. LFTs: Recent Labs 07/28/24 1257 07/28/24180707/30/24171407/31/2407/31/24 0605 AST 44 -- -- -- -- [...] 0557 07/30/24 0601 07/30/24 1114 07/30/24 1715 07/30/24199907/31/24 00007/31/24 00007/31/24 0604 07/31/24 06 GLUCOSE 33* -- -- -- 163* -- 147* 149* -- 89 114* -- -- 229* -- 161* POCGLU -- < > 83 <50* -- 177* 157* -- 155* -- -- 165* 237* -- 177* -- < > = values in this interval not displayed. Procal: No results for input(s): PROCAL in the last 72 hours. CBC: Recent Labs 07/30/24 0557 07/30/2493507/31/24607/31/24 06 WBC 13.6* -- 14.0* 13.3* HGB 7.3* < > 7.2* 7.1 7.1* HCT 23.0* -- 22.9* 22.3* PLT 161 -- 135* 146 MCV 90.2 -- 92.0 92.9 RDW 15.5* -- 15.1* 15.2* < > = values in this interval not displayed. ABGs: Recent Labs 07/30/24 02107/30/2493507/31/24 06 PHART 7.370 7.399 7.335* UMX9APG 46.3* 44.6 47.9* PO2ART 114.1* 113.8* 143.8* LBZ0GFV 26.2* 26.9* 25.0 P3MAAEAB Vent 30% Oxygen Nasal cannula Lactic Acid: [...] and Plan: Principal Problem: SDH (subdural hematoma) ([facility]) Active Problems: COPD (chronic obstructive pulmonary disease) (HCC) Type 1 diabetes mellitus with kidney complication (HCC) Hyperlipidemia Diabetic neuropathy associated with type 1 diabetes mellitus ([facility]) Assessment/Plan: Stable Small Right Temporal SDH (identified [...] PM EDT I have personally performed a rxvz-za-dfxu diagnostic evaluation on this patient on date of service07/31/2024. History, labs, imaging studies, and electronic medical record have been reviewed by me. This note documented by the [x]seasonal warehouse associate []TONJA reflects my history, exam, and medical [...] days Referring physician: Kena Heath DO Outpatient Bench Loom Weaver: Christy Huerta Reason for Consult: Asked to [...] 4 - follows with Dr Christy Huerta ([facility]). - On review of available labs, Cr has been 2.4-2.8, last (04/26) Cr 2.4 eGFR 20, 24 hr zqpnknr=7150 mg. - Home med includes losartan 25 [...] 7. Acute resp failure/COVID - intubated, per [facility] - remdesivir/steroids/meropenem 8. Altered MS, improving Trace [...] stents in 2017). who was admitted by,Ino Conet MD, for SDH (subdural hematoma) (HCC) [S06.5XAA]. [...] 4 - follows with Dr Christy Huerta ([place]). On review of available labs, Cr has been 2.4-2.8, last (04/26) Cr 2.4 eGFR 20, 24 hr gglvvvh=9531 mg. Home med includes losartan 25 mg [...] Urethral Catheter-Output (mL): 5 mL Urethral Catheter Rjvuspnl-vov-Itbcce (mL): 0 mL FIO2 needs: Patient Vitals [...] IRON, TIBC, FERRITIN No results found for: [id number], FOLATE Recent Labs 07/27/24 2114 07/28/24 0409 [...] 24 < > 26 26 -- 24 BUN 41* 34* 31* [...] studies and notes. Karyn Jones MD Pager [phone] [facility] [phone] D/w ICU * Torito Keyshawn - 07/30/2024 10:36 AM EDT NEUROCRITICAL CARE PROGRESS NOTE Patient Name: Sandy Deng Patient : 1960 Acct: [id number] Date of Admission: 07/26/2024 Room/Bed: -213/[facility]213 A PCP: Bird Lujan Interval Events: - [...] in 0.9 % sodium chloride 250 mL (Quj-Zylxjn-Ghaqb) (premix), 2-100 mcg/min, IntraVENous, Continuous, Smione Momin DO, Stopped at 07/30/24 0944 ondansetron ODT (Zofran-ODT) disintegrating tablet 4 mg, 4 mg, Oral, q8h PRN OR ondansetron (Zofran) injection 4 mg, 4 mg, IntraVENous, q6h PRN, Clara Mayes DO pantoprazole (ProtoNix) 40 mg in sodium chloride (PF) 0.9 % 10 mL injection, 40 mg, IntraVENous, BID, Clara Myaes DO, 40 mg at 07/30/24 0557 polyethylene glycol (PEG) 3350 (Miralax) packet 17 g, 17 g, Oral, Daily PRN, Clara Mayes DO PrismaSol BGK 4/2.5 CRRT solution, 750 mL/hr, CRRT, Continuous, Karyn Jones MD, Last Rate: 750 mL/hr at 07/30/24747, 750 mL/hr at 07/30/24747 PrismaSol BGK 4/2.5 CRRT solution, 750 mL/hr, CRRT, Continuous, Karyn Jones MD, Last Rate: 750 mL/hr at 07/30/24747, 750 mL/hr at 07/30/24747 PrismaSol BGK 4/2.5 CRRT solution, 750 mL/hr, [...] 2207) norepinephrine, 2-100 mcg/min, Last Rate: Stopped (07/30/24943) PrismaSol BGK 4/2.5, 750 mL/hr, Last Rate: 750 mL/hr (07/30/24747) PrismaSol BGK 4/2.5, 750 mL/hr, Last Rate: 750 mL/hr (07/30/24747) PrismaSol BGK 4/2.5, 750 mL/hr, Last Rate: 750 mL/hr (09/27/24 0747) Vitals: Patient Vitals for the past 8 [...] -- -- -- 66 16 100 % 07/30/24714 -- -- -- 65 16 100 % 07/30/24699 -- -- -- 64 16 100 % 07/30/2445 -- -- -- 64 16 100 % 07/30/24629 -- -- -- 65 16 100 % [...] 100 % 07/30/24 0315 -- -- -- 16 100 % 07/30/24 0300 -- -- -- 16 100 % 07/30/24 0245 -- -- -- 16 100 % I/O last 3 completed [...] 78 ALT 23 AST 44 BILITOT 0.5 @[facility]EFLAB([facility]) ABGs:)No results for input(s): PH, [...] original note were not included. PHYSICAL THERAPY [facility] Name/MRN: Sandy Deng ([id number]) Date: 07/30/2024 Screen Note. Pt remains intubated and sedated with orders for strict bed rest. Will continue to follow and re-attempt as able. Jennifer Saldaña, JEY * Joycelyn Diane DO - 07/30/2024 5:21 AM EDT ICU Progress Note Name: Sandy Deng : 1960(63 y.o.) Date: 07/30/24 Team: MICU Attending: Dr. Jones Subjective: Hospital Summary: 63 year old female with a PMHx of COPD (3L O2 baseline), DM, CKD 4, HTN, CAD, PA (PCI with stents in 2017). at bedside. Pt was admitted to [facility] due to confusion and hallucinations. Pt has had episodes of staring off into space per family. Was found to have a subdural hematoma. She reportedly had a fall 1 month ago from bed. states she hit her head on the nightstand. She is on Plavix and ASA for a stent placed 7 years ago. Pt tested positive for COVID on 07/24. Today at [facility] ICU she had worsening hypoxia and was placed on NIV but failed. Was ultimately intubated. Noted to be hypotensive and started on levophed. Pt was transferred to [facility] for higher level of care. On [...] 46.3, pO2 114.1 Diet: TF Glucerna 1.5 Korey goat rate 35 ml/hr, flushes 35cc Q4H [...] Normal [] Scar/Lesion/Mass Inspection of teeth/lips/gums Dentition: []Choctaw Teeth []Dentures Lips/Gums: [x]Intact []Lesion Present Mucosa: [x]Yaurel [x]Moist []Dry Neck: External Appearance Overall Appearance: [...] Labs 07/27/24 2114 07/28/24 0409 07/28/24 1257 07/28/24180707/29/24111407/29/24173507/30/24 0028 NA 131* 131* 130* < > 131* 133* 132* K 3.6 4.5 4.5 < > 4.9 5.0 5.3* CL 102 104 102 < > 104 106 106 CO2 < > BUN 41* 34* 31* < > 35* 41* 32* CREATININE 2.18* 1.80* 1.50* < > 1.59* 1.94* 1.54* CALCIUM 7.3* 7.4* 7.3* < > 7.6* 8.6 7.6* MG 1.9 2.2 2.7* -- -- -- -- PHOS -- 3.6 3.5 < > 3.7 4.4 4.2 < > = values in this interval not displayed. LFTs: Recent Labs 07/27/24 0530 07/27/24 1427 07/28/24 1257 07/28/24180707/29/24111407/29/24173507/30/24 0028 AST 28 -- 44 -- -- [...] Glucose: Recent Labs 07/28/24 1257 07/28/24 1514 07/28/24180707/28/24200607/28/24 2346 07/28/24 2349 07/29/24 0557 07/29/24 0601 07/29/24 11107/29/24173507/29/24 1844 07/29/24 19007/29/24201307/29/24202007/29/24202107/30/24 0028 GLUCOSE 149* -- 139* -- -- [...] Recent Labs 07/29/24 1006 07/29/24 1408 07/30/24 021 PHART 7.506* 7.439 7.370 OAF7JRJ 34.5* 37.9 46.3* PO2ART 88.9 96.3 114.1* HBN5YVA 26.7* 25.1* 26.2* R0PWYKJO 30% Oxygen 30% Oxygen Vent Lactic Acid: [...] and Plan: Principal Problem: SDH (subdural hematoma) ([facility]) Active Problems: COPD (chronic obstructive pulmonary disease) (HCC) Type 1 diabetes mellitus with kidney complication (HCC) Hyperlipidemia Diabetic neuropathy associated with type 1 diabetes mellitus ([facility]) Assessment/Plan: Stable Small Right Temporal SDH (identified [...] AM EDT I have personally performed a edys-re-ypmu diagnostic evaluation on this patient on date of service07/30/2024. History, labs, imaging studies, and electronic medical record have been reviewed by me. This note documented by the [x]seasonal warehouse associate []TONJA reflects my history, exam, and medical [...] Number Called: NA Name of Designated Family Securities Supervisor: Jose Deng and pt's sister Relationship: spouse Family Securities Supervisor Updated on the Following: Updated on [...] days Referring physician: Kena Heath DO Outpatient Bench Loom Weaver: Christy Huerta Reason for Consult: Asked to [...] 4 - follows with Dr Christy Huerta ([place]). - On review of available labs, Cr has been 2.4-2.8, last (04/26) Cr 2.4 eGFR 20, 24 hr gwnzwrw=7661 mg. - Home med includes losartan 25 [...] 4 - follows with Dr Christy Huerta ([place]). On review of available labs, Cr has been 2.4-2.8, last (04/26) Cr 2.4 eGFR 20, 24 hr dtpjmra=6058 mg. Home med includes losartan 25 mg [...] Urethral Catheter-Output (mL): 5 mL Urethral Catheter Sxwjuplu-roc-Taeysl (mL): 0 mL FIO2 needs: Patient Vitals [...] IRON, TIBC, FERRITIN No results found for: [id number], FOLATE Recent Labs 07/27/24 0530 07/27/24 1427 [...] studies and notes. Karyn Jones MD Pager [phone] [facility] [phone] D/w ICU * Jamey Muro, OT - 07/29/2024 11:27 AM EDT Images from the original note were not included. OCCUPATIONAL THERAPY [facility] Name/MRN: Sandy Deng ([id number]) Date: 07/29/2024 Pt remains on strict bed rest. Will continue to follow. Jamey Muro OT * Jennifer Saldaña - 07/29/2024 9:25 AM EDT Images from the original note were not included. PHYSICAL THERAPY [facility] Name/MRN: Sandy Deng ([id number]) Date: 07/29/2024 Hold Note. Pt remains intubated [...] O2 baseline), DM, CKD 4, HTN, CAD, PA (PCI with stents in 2017). at bedside. Pt was admitted to [facility] due to confusion and hallucinations. Pt has had episodes of staring off into space per family. Was found to have a subdural hematoma. She reportedly had a fall 1 month ago from bed. states she hit her head on the nightstand. She is on Plavix and ASA for a stent placed 7 years ago. Pt tested positive for COVID on 07/24. Today at [facility] ICU she had worsening hypoxia and was placed on NIV but failed. Was ultimately intubated. Noted to be hypotensive and started on levophed. Pt was transferred to [facility] for higher level of care. On arrival she was noted to have reduced urine output. Pt reportedly with CKD 4 and familystates has been told in the past she may need HD in the future. Pt has a hx of intention tremor. 9/24: Overnight, patient had dialysis catheter placed and [...] 32, pO2 110 Diet: TF Glucerna 1.5 Kroey goat rate 40 ml/hr, flushes 35cc Q4H [...] 67 (07/28/24 0000) Arterial BP MAP 146/57 (07/29/24699) 84 mmHg (07/29/24699) Temp 36.1 C (97 [...] Normal [] Scar/Lesion/Mass Inspection of teeth/lips/gums Dentition: []Choctaw Teeth []Dentures Lips/Gums: [x]Intact []Lesion Present Mucosa: [x]Yaurel [x]Moist []Dry Neck: External Appearance Overall Appearance: [...] Labs 07/27/24 2114 07/28/24 0409 07/28/24 1257 07/28/24180707/28/24234807/29/24 0557 NA 131* 131* 130* 131* 130* 131* K 3.6 4.5 4.5 4.2 4.6 5.2* CL 102 104 102 103 104 104 CO2 24 26 26 25 BUN 41* 34* 31* 30* 28* 28* CREATININE 2.18* 1.80* 1.50* 1.33* 1.26* 1.32* CALCIUM 7.3* 7.4* 7.3* 7.8* 7.4* 7.5* MG 1.9 2.2 2.7* -- -- -- PHOS -- 3.6 3.5 2.7 2.4* 3.2 LFTs: Recent Labs 07/26/24 1850 07/27/24 0530 07/27/24 1427 07/28/24 1257 07/28/24180707/28/24234807/29/24 0557 AST 40 28 -- 44 -- [...] 0409 07/29/24 0558 PHART 7.398 7.401 7.502* CRG7LXI 41.9 38.6 32.6* PO2ART 100.1* 120.0* 110.0* IYT8JOM 25.3* 23.4 25.0 P2LJVDKM 30% Oxygen Vent Vent Lactic Acid: Recent Labs 07/26/241849 [...] and Plan: Principal Problem: SDH (subdural hematoma) ([facility]) Active Problems: COPD (chronic obstructive pulmonary disease) [...] PM EDT I have personally performed a gcmd-wj-papx diagnostic evaluation on this patient on date of service07/29/2024. History, labs, imaging studies, and electronic medical record have been reviewed by me. This note documented by the [x]seasonal warehouse associate []TONJA reflects my history, exam, and medical [...] so far today, excludingprocedures. * Cruzito Molina [employer] - 07/29/2024 3:05 AM EDT 07/29/24 0258 [...] days Referring physician: Kena Heath DO Outpatient Bench Loom Weaver: Christy Huerta Reason for Consult: Asked to [...] 4 - follows with Dr Christy Huerta ([place]). - On review of available labs, Cr has been 2.4-2.8, last (04/26) Cr 2.4 eGFR 20, 24 hr ijuoeku=2148 mg. - Home med includes losartan 25 [...] 4 - follows with Dr Christy Huerta ([place]). On review of available labs, Cr has been 2.4-2.8, last (04/26) Cr 2.4 eGFR 20, 24 hr trcmwge=6498 mg. Home med includes losartan 25 mg [...] Urethral Catheter-Output (mL): 5 mL Urethral Catheter Mfueiise-riu-Bvtrdc (mL): 0 mL FIO2 needs: Patient Vitals [...] Unable to assess LABS: Recent Labs 07/26/24 18507/26/24 2232 07/27/24 0530 07/27/24 0652 07/27/24 1622 [...] IRON, TIBC, FERRITIN No results found for: [id number], FOLATE Recent Labs 07/26/24184907/27/24 0530 07/27/24 1427 [...] studies and notes. Karyn Jones MD Pager [phone] [facility] [phone] * Torito Mahajan - 07/28/2024 10:43 AM EDT NEUROCRITICAL CARE PROGRESS NOTE Patient Name: Sandy Deng Patient : 1960 Acct: [id number] Date of Admission: 07/26/2024 Room/Bed: T2213/[facility]213 A PCP: Bird Lujan Interval Events: - [...] Nightly, Saroj Knox MD, 5 Units at 07/27/24 2040 insulin regular [...] in 0.9 % sodium chloride 250 mL (Vxs-Qmkcpf-Fyjgd) (premix), 2-100 mcg/min, IntraVENous, Continuous, Simone Momin [...] -- -- 71 20 98 % -- 07/28/24937 -- -- 72 20 98 % -- 07/28/24929 -- -- 75 20 100 % -- 07/28/24921 -- -- 69 20 100 % -- 07/28/24919 -- -- 68 20 100 % -- 07/28/24914 -- -- 68 20 100 % -- 07/28/24899 -- -- 73 20 100 % -- 07/28/2445 -- -- 64 20 100 % -- 07/28/24829 -- -- 68 20 100 % -- 07/28/24814 -- -- 68 20 95 % -- 07/28/24799 36.2 C (97.1 F) Temporal 71 20 100 % -- 07/28/24744 -- -- 69 20 99 % -- 07/28/24729 -- -- 70 20 97 % -- 09/25/24 0715 -- -- 70 20 97 % -- 07/28/24 0700 -- -- 70 20 98 % -- 07/28/24 0645 -- -- 74 20 99 % -- 07/28/24 0630 -- -- 70 20 97 % -- 07/28/24 0615 -- -- 71 20 97 % -- 07/28/24 0600 -- -- 71 20 98 % -- [...] 416 ms QTC Interval 456 ms P Collins 0 degrees QRS Collins 14 degrees T Wave Collins 0 degrees MS Interval 0 ms Basic [...] 66 ALT 19 AST 28 BILITOT 0.3 @BRIEFLAB([facility]) ABGs:)No results for input(s): PH, [...] O2 baseline), DM, CKD 4, HTN, CAD, PA (PCI with stents in 2017). at bedside. Pt was admitted to [facility] due to confusion and hallucinations. Pt has had episodes of staring off into space per family. Was found to have a subdural hematoma. She reportedly had a fall 1 month ago from bed. states she hit her head on the nightstand. She is on Plavix and ASA for a stent placed 7 years ago. Pt tested positive for COVID on 07/24. Today at [facility] ICU she had worsening hypoxia and was placed on NIV but failed. Was ultimately intubated. Noted to be hypotensive and started on levophed. Pt was transferred to [facility] for higher level of care. On [...] 30%, PEEP 8 Diet: TF Glucerna 1.5 Korey goat rate 40 ml/hr, flushes 40cc Q4H [...] 67 (07/28/24 0000) Arterial BP MAP 136/50 (07/28/2400) 76 mmHg (07/28/24599) Temp 36.1 C (96.9 F) (07/28/24 0400) Pulse 71 (07/28/24599) Resp 20 (07/28/24599) SpO2 98 % (07/28/24599) Weight 61.2 kg (134 lb 14.7 oz) (07/28/24 0500) BMI Body mass index is 21.78 kg/m . I/O: 07/27 700 - 07/28 659 In: 2810.8 [I.V.:2421.8] Out: [...] Normal [] Scar/Lesion/Mass Inspection of teeth/lips/gums Dentition: []Choctaw Teeth []Dentures Lips/Gums: [x]Intact []Lesion Present Mucosa: [x]Yaurel [x]Moist []Dry Neck: External Appearance Overall Appearance: [...] 24 hours- BMP: Recent Labs 07/27/24 0507/27/24 14207/27/24 2114 07/28/24 0409 NA 130* 131* 131* 131* K 4.3 3.6 3.6 4.5 CL 101 102 102 104 CO2 18* 23 BUN 66* 49* 41* 34* CREATININE 4.00* 2.81* 2.18* 1.80* CALCIUM 6.5* 7.5* 7.3* 7.4* MG 2.0 -- 1.9 2.2 PHOS 6.8* 4.6* -- 3.6 LFTs: Recent Labs 07/26/24184907/27/24 0530 07/27/24 1427 AST 40 28 -- ALT 21 19 -- PROT 5.5* 4.9* -- ALBUMIN 2.9* 2.4* 2.4* BILITOT 0.5 0.3 -- ALKPHOS 68 66 -- Glucose: Recent Labs 07/26/24 1850 07/27/24 0150 07/27/24 0530 07/27/24 0950 07/27/24 1427 07/27/24 1506 07/27/24 1803 07/27/24 18107/27/24 18307/27/24201207/27/24 20407/27/24 21107/27/24 22207/27/24 2338 07/28/24 0409 [...] Labs 07/26/241849 PROCAL 2.48* CBC: Recent Labs 07/26/24184907/26/24223107/27/24 0530 07/27/24 0652 07/27/24 1622 07/28/24 0409 [...] this interval not displayed. ABGs: Recent Labs 07/27/24142307/27/24 16207/28/24 0409 PHART 7.286* 7.398 7.401 UQD3OPT 52.3* 41.9 38.6 PO2ART 115.1* 100.1* 120.0* FXB8TTQ 24.4 25.3* 23.4 F5JAHRQL 30% Oxygen 30% Oxygen Vent Lactic Acid: Recent Labs 07/26/241849 LACTATE 0.9 INR: No results for input(s): INR in the last 72 hours. Cardiac Injury Profile: Recent Labs 07/26/24184907/26/24215507/27/24 0246 07/27/24 0530 CKTOTAL -- -- -- [...] and Plan: Principal Problem: SDH (subdural hematoma) ([facility]) Active Problems: COPD (chronic obstructive pulmonary disease) ([facility]) Type 1 diabetes mellitus with kidney complication (HCC) Hyperlipidemia Diabetic neuropathy associated with type 1 diabetes mellitus ([facility]) Assessment/Plan: Stable Small Right Temporal SDH (identified [...] PM EDT I have personally performed a tqzx-br-gsxf diagnostic evaluation on this patient on date of service07/28/2024. History, labs, imaging studies, and electronic medical record have been reviewed by me. This note documented by the [x]seasonal warehouse associate []TONJA reflects my history, exam, and medical [...] Torres RCP - 07/28/2024 4:53 AM EDT [facility] Respiratory Care Department Progress Note Spontaneous Awakening [...] 1622 07/28/24 0409 PHART 7.286* 7.398 7.401 PTK1UIU 52.3* 41.9 38.6 PO2ART 115.1* 100.1* 120.0* RHK6FNY 24.4 25.3* 23.4 X2EBRQRL 30% Oxygen 30% Oxygen Vent Does this [...] 12- 24 hours post-extubation. [place] Sahni MA [facility] * Delmar Ling OT - 07/27/2024 8:22 AM EDT Images from the original note were not included. OCCUPATIONAL THERAPY [facility] Name/MRN: Sandy Deng ([id number]) Date: 07/27/2024 Intubated, sedated, on bed rest. Will follow. Delmar Ling OT * Jennifer Saldaña - 07/27/2024 7:30 AM EDT Images from the original note were not included. PHYSICAL THERAPY [facility] Name/MRN: Sandy Deng ([id number]) Date: 07/27/2024 Screen Note. Pt remains intubated and sedated, and on strict bed rest orders. Will continue to follow and re-attempt as able. JEY Caldwell * Dariel Santizo MD - 07/27/2024 7:08 AM EDT ICU Progress Note Name: Sandy Deng : 1960(63 y.o.) Date: 07/27/24 Team: MICU Attending: Kumar Subjective: Hospital Summary: Sandy Deng is a 63 year old female with a PMHx of COPD (3L O2 baseline), DM, CKD 4, HTN, CAD (PCI with stents in 2017). at bedside. Pt was admitted to [facility] due toconfusion and hallucinations. Pt has had episodes of staring off into space per family. Was found to have a subdural hematoma. She reportedly had a fall 1 month ago from bed. states she hit her head on the nightstand. She is on Plavix and ASA for a stent placed 7 years ago. Pt tested positive for COVID on 07/24. Today at [facility] ICU she had worsening hypoxia and was placed on NIV but failed. Was ultimately intubated. Noted to be hypotensive and started on levophed. Pt was transferred to [facility] for higher level of care. On [...] 25-200 mcg/hr, Last Rate: 100 mcg/hr (07/27/24 0572) norepinephrine, 2-100 mcg/min, Last Rate: 2 mcg/min [...] I/O: 07/26 07 - 07/27 659 In: 2531 [I.V.:2531] Out: [...] Normal [] Scar/Lesion/Mass Inspection of teeth/lips/gums Dentition: []Choctaw Teeth []Dentures Lips/Gums: [x]Intact []Lesion Present Mucosa: [x]Yaurel [x]Moist []Dry Neck: External Appearance Overall Appearance: [...] -- 320* 283* -- Procal: Recent Labs 07/26/241849 PROCAL 2.48* CBC: Recent Labs 07/26/24184907/26/24 2232 07/27/24 0530 07/27/24 0652 WBC 18.7* -- 14.5* -- HGB 10.1* 8.1 8.8* 9.9 HCT 31.3* -- 27.2* -- PLT 244 -- 186 -- MCV 88.7 -- 88.0 -- RDW 15.5* -- 15.3* -- ABGs: Recent Labs 07/26/24 2232 07/27/24 0652 PHART 7.166* 7.214* BFU1OVF 30.4* 53.5* PO2ART 95.4 108.9* LQK9JFL 10.7* 21.1 R2XVJEVR Vent Vent Lactic Acid: Recent Labs 07/26/24 1850 LACTATE 0.9 INR: No results for input(s): INR in the last 72 hours. Cardiac Injury Profile: Recent Labs 07/26/24 1850 07/26/24 2156 07/27/24 0246 TROPONINI 0.013 0.014 0.017 [...] and Plan: Principal Problem: SDH (subdural hematoma) ([facility]) Active Problems: COPD (chronic obstructive pulmonary disease) ([facility]) Type 1 diabetes mellitus with kidney complication (HCC) Hyperlipidemia Diabetic neuropathy associated with type 1 diabetes mellitus ([facility]) Assessment: Acute on chronic hypoxemic, hypercapneic respiratory [...] PM EDT I have personally performed a tlhc-ur-ferp diagnostic evaluation on this patient on date of service07/27/2024. History, labs, imaging studies, and electronic medical record have been reviewed by me. This note documented by the [x]seasonal warehouse associate []TONJA reflects my history, exam, and medical [...] CKD, on ASA/Plavix who initially presented to [facility] on 07/23 with [...] 750 mL/hr, Last Rate: 750 mL/hr (07/27/24 6599) PrismaSol BGK 2/3.5, 750 mL/hr, Last Rate: 750 mL/hr (07/27/24 023) PrismaSol BGK 2/3.5, 750 mL/hr, Last Rate: 750 mL/hr (07/27/24238) propofol, 5-50 mcg/kg/min, Last Rate: 20 mcg/kg/min (07/27/24 0230) sodium bicarbonate 150 mEq in sterile water 1,000 mL infusion, 75 mL/hr, Last Rate: 75 mL/hr (07/27/24 0134) vasopressin, 0.01-0.03 Units/min, Last Rate: 0.03 Units/min (07/26/24 2245) PRN Meds:PRN medications: dextrose, dextrose, glucagon (rDNA), glucose, hydrALAZINE, labetalol, naloxone, ondansetron ODT OR ondansetron, polyethylene glycol (PEG) 3350, sodium chloride, sodium chloride ASSESSMENT AND PLAN: 63 y.o. female s/p presented to [facility] ED with confusion since the prior night [...] SDH -patient admitted yesterday after transfer from [facility] with hypoxic respiratory failure, known COPD hx, [...] minutes (including chart/data review/analysis, care coordination, and ksqz-pz-cexb encounter), and was spent discussing/counseling the patient/family [...] & Acute Care Surgery Department of Surgery [facility] Pager: [phone] ~~~~~~~~~~~~~~~~~~~~~~~~~~~~~~~~~~~~~~~~~~~~~~~~~~~~~~~~~~~~~ This note may have been dictated using [employer] Edition 2.6 and/or [employer] Protective Voice Recognition Feature. The document was proofread; however, unrecognized voice recognition regional sales executive errors may be present. * Joni Monson [...] epidural hematoma and patient was transferred to [facility]. She was placed on levophed. She [...] call with any questions. Joni Monson MD Located Within [facility]) Office phone: [phone] Office fax: [phone] 07/27/2024 documented in this [facility]10-08-2024 Miscellaneous Notes* Care Coordination - Otilia Arellano RN - 08/10/2024 11:38 AM EDT Active with salicylic acid blender brenna ext [phone] per , tcc called left VM regarding discharge plan. At HD today , will [facility] , at bedside aware and agree to plan .. * Care Coordination - Unknown Case Management - 08/10/2024 10:00 AM EDT Patient Choice Patient Name: SANDY DENG Date of : 1960 All Providers Sent Referral Name: [facility] Address: [address] [place] [address] Name: [facility] Phone: [phone] Address: [address] [place] [address] Name: [facility] Phone: [phone] Address: [address] [place] [address] Name: [facility] Address: [address] [place] [address] Name: [facility] Address: [address] [place] [address] Name: [facility] Phone: [phone] Address: [address] [place] [address] * Care Coordination - SAPNA Richards - 08/10/2024 9:59 AM EDT Transportation set via cot through [facility] for today 08-10-24 @2pm to [facility]. TCC, RN, Director Of Regulatory Affairs, facility, Pt, and Pt's Jose notified. * Care Coordination - Kimberlee Valdovinos - 08/10/2024 8:14 AM EDT Discharge med list transmitted to REHAB- [facility] via [facility] per TCC request. * Care Coordination - Otilia Arellano RN - 08/10/2024 6:15 AM EDT [facility] mar today . Med team [...] she has been to HD class at [facility] . And that is the out [...] Need accepting rehab center- tcc messaged to [place] and [facility] and [facility] to see who can accept [...] improved Outcome: Progressing * Troy Singh - Gloria Vides RN - 08/08/2024 4:24 [...] improved Outcome: Progressing * Troy Singh - Gloria Vides RN - 08/07/2024 4:43 [...] out pt HD , will try for [facility], did not prefer days anything will [...] 8:29 AM EDT Referral placed to REHAB [facility] via [facility] per TCC request. Referral placed to [facility] via [facility] per TCC request. Await review and response regarding ability to accept. TCC notified. * Care Coordination - Otilia Arellano RN - 08/06/2024 6:50 AM EDT Transfer from [facility], complex discharge, need HD, recent covid, per PT/OT need rehab, live in [place], ready for discharge soon, not today , [...] and too far as she lives in [facility], will get lists to bedside and TCC did sent mass referral - weekend tcc to follow or therapy and acceptance options . Cont to follow , tcc will update the family as able . * Care Coordination - Shaniqua Parker RN - 08/06/2024 5:54 AM EDT Care Management Progress Note Chart reviewed. Patient admitted to [facility] ICU for SDH 07/26/2024. Consults to IP CONSULT TO NEUROSURGERY IP CONSULT TO NEUROLOGY IP CONSULT TO NEPHROLOGY IP CONSULT TO DIETITIAN IP WOUND CARE NURSE CONSULT TO EVAL Discharge Planning/Barriers: HDC - tunneled. iHD - T, TH, S. PT/OT recs noted. Late entry note from 08/05/24 - CM requested to start facility auth if able 08/05. CM was told by [facility] no dialysis bed available per secure chat we are back to not having a dialysis bed available. you should likely make other plans for her. CM explained by [facility] liaison, not willing to start auth until HD bed available. CM notes that [facility] IPR nor [facility] IPR have in house HD. Patient was hoping to have IPRwith in house HD. CM will discuss with patient, as able, for other options than IPR at [facility]. [place] and [facility] are locations not yet offered/confirmed if they have HD beds available. Discharge Plan: IPR vs SNF. Awaiting additional facility choices/discussion, clinical stability and medical clearance. Will continue to follow with [facility]. Length of Stay (Days): 11 GMLOS: [...] Progress Note Chart reviewed. Patient admitted to [facility] ICU for SDH 07/26/2024. Consults to IP CONSULT TO NEUROSURGERY IP CONSULT TO NEUROLOGY IP CONSULT TO NEPHROLOGY IP CONSULT TO DIETITIAN IP WOUND CARE NURSE CONSULT TO EVAL Discharge Planning/Barriers: HDC - tunneled. iHD - T, TH, S. PT/OT recs noted. CM spoke with patient at bedside. Re-introduced myself and role. Discussed discharge planning. [facility] does not have inpatient diaylsis. Patient would prefer to participate in IPR at [facility] where IPHD is available. CM updated facilities. Discharge Plan: [facility]. Awaiting OT eval, facility precert, clinical stability and medical clearance. Will continue to follow with [facility]. Length of Stay (Days): 9 GMLOS: 5.1 * Care Coordination - Shilo Rodrigez 08/03/2024 2:05 PM EDT Referral placed to Rehab - [facility] per [facility] request. Await review and response regarding ability [...] agreeable to rehab at discharge. CM tasked [facility] to send referrals to [facility] and [facility] for IPR and iHD. Discharge Plan: [facility] and [facility]. Awaiting facility acceptance, facility precert, clinical stability and medical clearance. Will continue to follow with [facility]. Length of Stay (Days): 8 GMLOS: 5.1 * Care Coordination - Gregg-Mario Alberto Momin DO - 08/02/2024 1:13 PM EDT ICU Transfer Checklist Transfer Med Reconciliation (resume home meds if able, convert to PO if able) Complete Antibiotics (name, indication, duration, convert to PO if able) Yes, addressed in today's progress note Steroid (indication, duration, convert to PO if able) Yes, addressed in today's progress note Anticipated [place] Medications (ICU initiated) or Dose Changes and [...] 24 hours of ICU transfer, page ICU Stella RES for clarifications. * Care Coordination - [...] Parker RN 07/27/2024 7:48 AM 07/30/2024 Clara DO Gerber 07/26/2024 5:12 PM Length of Stay (Days): [...] Progress Note Chart reviewed. Patient admitted to [facility] ICU for SDH 07/26/2024. Consults to IP [...] Assess Permission given to speak with patient outside industrial sales representative/caregiver as indicated: Confirmation of Payer with patient/family: Payer Name: [facility] [place] : Confirmation of Primary Care Physician: PCP [...] Information: Chart reviewed. Patient direct admit from [facility] to [facility] ICU for SDH 07/26/2024. Consults to IP CONSULT TO NEUROSURGERY IP CONSULT TO NEUROLOGY IP CONSULT TO NEPHROLOGY Initial Assessment: IA completed with chart review. Patient transferred from [facility]. NOK listed. Patient has insurance, prescription coverage and active with PCP. CM called PCP office spoke with BO Walker to confirm patient active. Discharge Planning/Barrier: Intubated/sedated. Art line. TLC CVC. HDC. CRRT. N/OGT. NPO. Johnson. IV qtt - levophed, vasopressin PT/OT/[place] pending. CM requests [facility] to follow peripherally. Discharge Plan: TBD. Awaiting clinical stability and medical clearance. Will continue to follow with [facility]. Shaniqua Parker RN documented in this [facility]10-08-2024 [facility] 08-09-2024 Hospital Discharge instructions* Discharge Instr [...] Unit/Room#: W3-339/W3-339 B Discharging Unit Phone Number: [phone] Emergency Contact: Extended Emergency Contact Information Primary Emergency Contact: BinBobbi Mobile Relation: Daughter Preferred language: Djiboutian Senior Credit Officer needed? No Secondary Emergency Contact: Jose Deng Mobile Relation: Spouse Preferred language: [place]iboutian Senior Credit Officer needed? No Past Surgical History: Past Surgical [...] assistance Toileting Minimal assistance Feeding Minimal assistance Cash Clerk Total assistance Med Delivery yes Wound Care [...] 07/26/24 Discharging to Facility/ Agency Name: [facility] Address: [address] [place] [address] Fax: Dialysis Facility (if applicable) Name: [facility] [place] is preference at out pt if needed Address: Dialysis Schedule: Phone: Fax: Leaf Size Picker/Felt Tipping Machine Tender signature: at1:31 PM PHYSICIAN SECTION Name: Sandy [...] to a nursing facility directly from an [facility] or a unit of a [facility] that is not operated by or licensed by [facility] under section 5119.14 or 5160-3-15.1 5 [...] in H&P PHYSICIAN SIGNATURE: documented in this encounterSParma Community General [id number] NoteReferral placed to Rehab - [facility] TCC request. Await review and response regarding ability to accept. TCC notified. Electronically signed by [facility] Shilo [facility]09-26-2024 [facility]09-26-2024 Procedure note* Armen Diaz MD PhD - 07/29/2024 12:43 PM EDTAssociated Order(s): EEG CONTINUOUS MONITORING Images from the original note were not included. [facility] EEG [facility]ORAT[facility] [address] [place] [id number] CONTINUOUS LONG-TERM VIDEO EEG MONITORING REPORT Patient Name: Sandy Deng : 1960 Date of Study: 07/29/2024 Duration Recorded: 14:59:56 EEG#: [id number] NUCLEAR POWERPLANT SUPERVISOR: LIBRA Peters CLTM PROVIDER REQUESTING STUDY: Dr. Mahajan REASON FOR EXAM: Evaluate for epileptiform activity DIAGNOSIS TAG: Subdural Hemorrhage (SDH) HISTORY: Sandy Deng is a 63 y.o. female with history of COPD (3L O2 baseline), DM, CKD 4, HTN, CAD (PCI with stents in 2017). at bedside. Pt was admitted to [facility] due to confusion and hallucinations. Pt has had episodes of staring off into space per family. Was found to have a subdural hematoma. She reportedly had a fall 1 month ago from bed. states she hit her head on the nightstand. She is on Plavix and ASA for a stent placed 7 years ago. Pt tested positive for COVIDon 07/24. Today at [facility] ICU she had worsening hypoxia and was placed on NIV but failed. Was ultimately intubated. Noted to be hypotensive and started on levophed. Pt was transferred to [facility] for higher level of care. On [...] IVPB premix 2,000 mg IntraVENous Once Joycelyn Diane, DO dexAMETHasone (Decadron) injection 6 mg 6 [...] in 0.9 % sodium chloride 250 mL (Oaj-Nkmvuv-Bpoww) (premix) 2-100 mcg/min IntraVENous Continuous Saif-Mario Alberto [...] study with video was carried out at [facility]. Scalp electrodeswere positioned in person by an office technologist, following patient education, according to the 10-20 International system of electrode placement and maintained for integrity and quality of the recording. EEG data with video was recorded continuously and digitally stored. The office technologist reviewed all automated detections and manual [...] delta-theta range (0.5- 6.5 Hz, 20-55 uV) naaonedra-rc-kbolflnbqjuenk slowing was seen unresponsive to stimulation. At times, intermixed generalized periodic discharges with triphasic morphology and yuqncuag-cu-oukryrrci phase delay are observed(0.5-1.5 Hz, 70-120 uV). 12:25:37 -Continuous slowing, generalized + triphasic waves (Referential to average, LFF=1Hz, HFF=30Hz, Sens=5 uV/mm) INTERICTAL EPILEPTIFORM ACTIVITY: No epileptiform activity was seen. ICTAL ACTIVITY: No ictal activity was seen. NON-EPILEPTIC EVENTS: None ACTIVATION PROCEDURES: Photic stimulation was not performed. Hyperventilation was not performed. IMPRESSION AND ACTIONS TAKEN: This continuous EEG with video is abnormal. Continuous diffuse rfbadfvi-ze-luuodz slowing is seen with intermixed triphasic waves. [...] not included. [facility] [address] [place] [address] CONTINUOUS LONG-TERM VIDEO EEG MONITORING REPORT Patient Name: Sandy Deng : 1960 Date of Study: 07/28/2024 Duration Recorded: 23:48:31 EEG#: [id number] NUCLEAR POWERPLANT SUPERVISOR: LIBRA Peters CLTM PROVIDER REQUESTING STUDY: Dr. Mahajan REASON FOR EXAM: Evaluate for epileptiform activity DIAGNOSIS TAG: Subdural Hemorrhage (SDH) HISTORY: Sandy Deng is a 63 y.o. female with history of COPD (3L O2 baseline), DM, CKD 4, HTN, CAD (PCI with stents in 2017). at bedside. Pt was admitted to [facility] due to confusion and hallucinations. Pt has had episodes of staring off into space per family. Was found to have a subdural hematoma. She reportedly had a fall 1 month ago from bed. states she hit her head on the nightstand. She is on Plavix and ASA for a stent placed 7 years ago. Pt tested positive for COVIDon 07/24. Today at [facility] ICU she had worsening hypoxia and was placed on NIV but failed. Was ultimately intubated. Noted to be hypotensive and started on levophed. Pt was transferred to [facility] for higher level of care. On [...] Kena Heath DO 6 mg at 07/27/24 1809 dextrose 5 % infusion 100 mL/hr IntraVENous [...] in 0.9 % sodium chloride 250 mL (Vgd-Ohazvs-Rmapf) (premix) 2-100 mcg/min IntraVENous Continuous Saif-Mario Alberto Merrill, DO 1.88 mL/hr at 07/28/24 1151 2 mcg/min at07/28/24 1151 ondansetron ODT (Zofran-ODT) disintegrating tablet 4 mg 4 mg Oral q8h PRN Clara Mayes, DO Or ondansetron (Zofran) injection 4 mg 4 mg IntraVENous q6h PRN Clara Mayes, DO pantoprazole (ProtoNix) 40 mg in sodium chloride (PF) 0.9 % 10 mL injection 40 mg IntraVENous BID Clara Mayes, DO 40 mg at 07/28/24 0420 polyethylene [...] 5-50 mcg/kg/min IntraVENous Continuous Clara Mayes, DO 11.52 mL/hr at 07/28/24 1007 40 [...] study with video was carried out at [facility]. Scalp electrodeswere positioned in person by an office technologist, following patient education, according to the 10-20 International system of electrode placement and maintained for integrity and quality of the recording. EEG data with video was recorded continuously and digitally stored. The office technologist reviewed all automated detections and manual [...] delta-theta range (0.5- 6.5 Hz, 20-55 uV) mogdmpxbx-qt-gsdwawjzkxyplc slowing was seen unresponsive to stimulation. 12:04:28 -Continuous slowing, generalized (Referential to average, LFF=1Hz, HFF=30Hz, Sens=5 uV/mm) INTERICTAL EPILEPTIFORM ACTIVITY: No epileptiform activity was seen. ICTAL ACTIVITY: No ictal activity was seen. NON-EPILEPTIC EVENTS: None ACTIVATION PROCEDURES: Photic stimulation was not performed. Hyperventilation was not performed. IMPRESSION AND ACTIONS TAKEN: This continuous EEG with video is abnormal. Continuous diffuse urhurgvf-cj-oswcdr slowing is seen unresponsive to stimulation. No interictal epileptiform activity nor seizures are observed. Compared with the previous day of recording, a cyclic alternating pattern of encephalopathy (CAPE) is no longer observed. These findings remain indicative of a potentially worsening bvqposft-ao-sroatt global encephalopathy nonspecific as to etiology. Jasmeet Arevalo, PhD Clinical Neurophysiologist Armen Diaz MD PhD Epilepsy Attending * Armen Diaz MD PhD - 07/27/2024 1:43 PM EDTAssociated Order(s): EEG CONTINUOUS MONITORING Images from the original note were not included. [facility] [address] [place] [id number] CONTINUOUS LONG-TERM VIDEO EEG MONITORING REPORT Patient Name: Sandy Deng : 1960 Date of Study: 07/27/2024 Duration Recorded: 10:39:13 EEG#: [id number] NUCLEAR POWERPLANT SUPERVISOR: LIBRA Peters CLTM PROVIDER REQUESTING STUDY: Dr. Mahajan REASON FOR EXAM: Evaluate for epileptiform activity DIAGNOSIS TAG: Subdural Hemorrhage (SDH) HISTORY: Sandy Deng is a 63 y.o. female with history of COPD (3L O2 baseline), DM, CKD 4, HTN, CAD (PCI with stents in 2017). at bedside. Pt was admitted to [facility] due to confusion and hallucinations. Pt has had episodes of staring off into space per family. Was found to have a subdural hematoma. She reportedly had a fall 1 month ago from bed. states she hit her head on the nightstand. She is on Plavix and ASA for a stent placed 7 years ago. Pt tested positive for COVIDon 07/24. Today at [facility] ICU she had worsening hypoxia and was placed on NIV but failed. Was ultimately intubated. Noted to be hypotensive and started on levophed. Pt was transferred to [facility] for higher level of care. On [...] 25-200 mcg/hr IntraVENous Continuous Clara Mayes, DO 7.5 mL/hr at 07/27/24 0829 75 [...] in 0.9 % sodium chloride 250 mL (Hre-Uvdziv-Gaqyg) (premix) 2-100 mcg/min IntraVENous Continuous Saif-Mario Albertoeli Momin, DO 4.69 mL/hr at 07/27/24 1238 [...] study with video was carried out at [facility]. Scalp electrodeswere positioned in person by an office technologist, following patient education, according to the 10-20 International system of electrode placement and maintained for integrity and quality of the recording. EEG data with video was recorded continuously and digitally stored. The office technologist reviewed all automated detections and manual [...] upper axial body and head, with subtle fwaz-pxj-lvxjy head movements at a frequency of 4 [...] abnormal states. State 1is characterized by continuous gxgbhsdo-en-tfitav diffuse slowing. State 2 features lower amplitudeand [...] upper axial body and head, with subtle vrmy-act-okbvd head movements. This activity ended with a transition to CAPE State 2. The findings are supportive of a adtmscac-nt-cahoba global encephalopahy non- specific as to etiology. [...] documented as signed by this procedure note Meter Engineer: Dr. Knox The attending physician was physically [...] documented as signed by this procedure note Meter Engineer: Dr. Concepcion The attending physician was physically present while the proceduralist performed cantrell/critical components of the procedure. Attending: Dr. Concepcion Associated attestation - Mynor Concepcion DO - 07/27/2024 12:52 AM EDT I have reviewed and agree with the resident/fellow/TONJA note I was physically present for cantrell elements of the procedure Complications during procedure: None documented in this [facility]09-25-2024 [facility] 07-28-2024 Consult note* Shanti García, RICKY [...] loss Fluid Accumulation: No significant fluid accumulation Surgical Technician Strength: Not Performed Nutrition Assessment: Pt is a 63-year-old female with multiple medical co-morbidities including Type I DM (on insulin pump), COPD on 4L home O2, CKD4, on ASA/Plavix who initially presented to [facility] on 07/23 withacute respiratory distress and acute delirium. 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 She was found to be hypoxic and hypercarbic, and COVID positive. She continued to be delirious and did not tolerate NIV, and required intubation 07/27/24. A CT head was done to evaluate her altered mental status, and she was found to have a small acute right sided SDH vs. epidural hematoma. For this reason, [facility] wa consulted for further neurologic management [...] On: Kcal/kg Weight Used for Energy Requirements: [place] Weight for Energy Calculation (kg): 59 kg Total Energy Requirements (kcals/day): 25-30 kcals/kg = 3097-1716 kcals/day Weight Used for Protein Requirements: [place] Weight in Kg Used for Protein Requirements: 59 kg Estimated Total Protein (g/day): 1.2-1.4g protein/kg IBW = 71-83g protein/day Estimated Daily Total Fluid (ml/day): 1475 mls Nutrition Related Findings: +BS, abd soft, Hipolito 14. Trace RUE edema Wound Type: None (generalized bruising) Net IO Since Admission: 2,225.7 mL [07/28/24 1632] Current Nutrition Therapies: Enteral Nutrition Feeding Route: Orogastric EN Formula: Glucerna 1.5 Korey EN Schedule: Continuous EN Feeding Regimen: Glucerna [...] lb 13.1 oz) Weight Source: Not Specified [place] Body Weight (lbs) (Calculated): 130 lbs [place] Body Weight (Kg) (Calculated): 59 kg % [place] Body Weight (Calculated): 81.4 % BMI (kg/m2) [...] soon to determine Shanti García RD,LD,CNSC Contact: *[phone] or Self-A-r-T Chat * Torito Mahajan - 07/27/2024 2:11 PM EDTAssociated Order(s): IP CONSULT TO NEUROLOGY NEUROCRITICAL CARE CONSULT NOTE Patient Name: Sandy Deng Patient : 1960 Acct: [id number] Date of Admission: 07/26/2024 Room/Bed: T2-213/T2213 A PCP: Bird Lujan Chief Complaint: encephalopathy [...] Mayes DO, Last Rate: 7.5 mL/hr at 07/27/24828, 75 mcg/hr at 07/27/24828 glucagon (human recombinant) injection 1 mg, 1 [...] in 0.9 % sodium chloride 250 mL (Zkb-Lucxjb-Obuhs) (premix), 2-100 mcg/min, IntraVENous, Continuous, Simone Momin [...] 448 ms QTC Interval 459 ms P Collins 82 degrees QRS Collins -71 degrees T Wave Collins 88 degrees MS Interval 98 ms Procalcitonin [...] consulted. Per report, patient initially presented to [facility] with respiratory distress [...] 448 ms QTC Interval 459 ms P Collins 82 degrees QRS Collins -71 degrees T Wave Collins 88 degrees MS Interval 98 ms Procalcitonin [...] sign-off at this time Romero Wright MD [facility] Neurosurgery I spent 60 minutes of [...] days Referring physician: Kena Heath DO Outpatient Bench Loom Weaver: Christy Huerta Reason for Consult: Asked to [...] 4 - follows with Dr Christy Huerta ([facility]). - On review of available labs, Cr has been 2.4-2.8, last (04/26) Cr 2.4 eGFR 20, 24 hr xorayju=0267 mg. - Home med includes losartan 25 [...] epidural hematoma and patient was transferred to [facility]. She was placed on levophed. Initial [...] 4 - follows with Dr Christy Huerta ([facility]). On review of available labs, Cr has been 2.4-2.8, last (04/26) Cr 2.4 eGFR 20, 24 hr awrdpdg=8973 mg. Home med includes losartan 25 mg [...] IRON, TIBC, FERRITIN No results found for: [id number], FOLATE Recent Labs 07/26/24184907/27/24 0530 NA 125* [...] studies and notes. Karyn Jones MD Pager [phone] [facility] [phone] Greater than 65 min of time spent on prepping chart, reviewing outpt pcp/reimbursement consultant notes/cumulative labs, imaging, FTF time, interpretation of results, devt of POC, documentation and coordination ofcare * Simone Momin, - 07/26/2024 5:59 PM EDT Images from [...] 2017). at bedside. Pt was admitted to [facility] due to confusion and hallucinations. Pt has had episodes of staring off into space per family. Was found to have a subdural hematoma. She reportedly had a fall 1 month ago from bed. states she hit her head on the nightstand. She is on Plavix and ASA for a stent placed 7 years ago. Pt tested positive for COVID on 07/24. Today at [facility] ICU she had worsening hypoxia and was placed on NIV but failed. Was ultimately intubated. Noted to be hypotensive and started on levophed. Pt was transferred to [facility] for higher level of care. On [...] Normal [] Scar/Lesion/Mass Inspection of teeth/lips/gums Dentition: [x]Choct[place] Teeth []Dentures Lips/Gums: [x]Intact []Lesion Present Mucosa: [x][place]urel [x]Moist []Dry Neck: External Appearance Overall Appearance: [...] 24 hours- BMP: Recent Labs 07/26/24 1850 NA 125* K 5.5* CL 98 CO2 [...] AM EDT I have personally performed a sbkf-lo-rmxj diagnostic evaluation on this patient on date of hirglei81/23/24. History, labs, imaging studies, and electronic medical record have been reviewed by me. This note documented by the [x]seasonal warehouse associate []TONJA reflects my history, exam, and medical decision making. I have reviewed and agree with the care plan. Changes were made in the orders as necessary. ROS documentation was reviewed and negative unless otherwise stated in HPI. Assessment: Acute hypoxic, hypercapnic respiratory failure COVID19 pneumonia Acute metabolic encephalopathy R SDH, small/subacute Severe NAGMA UMA/CKD Plan: Continue [facility] vent support Add COVID19 rx incl decadron, remdes -->confirm COVID19 result from [facility] Follow-up micro studies and adjust abx Concern [...] failure is 35 minutes. documented in this [facility]09-24-2024 [facility] 07-27-2024 NoteAcceptable Specimen? Acceptable Specimen(Evaluation not needed) Gram Stain 3+ White Blood Cells No Epithelial cells 3+ Gram positive cocci 1+ Gram negative rodsWPaulding County HospitalComment on above:Performed By: #### M100.2400, M100.1999 ####[facility] [id number] [place], [phone] [facility] 07-26-2024 [facility]09-23-2024 [facility] 07-26-2024 History and physical note* Deacon Mazariegos MD - 07/26/2024 4:37 PM EDT Images from the original note were not included. [facility] SICU H&P 07/26/2024 6:01 PM Attending: Dr. Holbrook Chief Complaint: Brain Bleed History of Present Illness: 63 y.o. female presented to [facility] ED with confusion since the prior night [...] ADDENDUM I personally supervised the resident or STADIUM MANAGER/STACY in the evaluation and development of a [...] CKD, on ASA/Plavix who initially presented to [facility] on 07/23 (3 [...] sided SDH vs.epidural hematoma. For this reason, [facility] consulted for further neurologic management and she was transferred to SICU. I spoke to the patient's , son, and sister who were present at the patient's bedside. They report that leading up to her visit to [facility] ED she was acting delirious and frequently getting outof bed in the middle of night. She may have hit her head during one of these episodes, however she did not have a fall or witnessed head trauma during her brief hospitalization at [facility]. I reviewed her CT head from [facility] at 0100 this AM (07/26), with [...] MD Division of Trauma Department of Surgery [facility] documented in this encounterSPar[facility] [id number] [facility]07[facility]18-[facility]23 [facility] CenterChief [facility] Narrative - Reported* ChiefComplaintFreeTextNoteForm_: * Kidney transplant surgical evaluation for potential active candidacy on kidney transplant list [id number] [address] Work Phone: Evaluation note* Diagnosis Onset Date Resolution Status CKD (chronic kidney disease) stage 4, GFR 15-29 ml/min chronic Diabetes chronic Essential (primary) hypertension chronic Tobacco abuse [facility] Work Phone: Evaluation note* Diagnosis Onset Date Resolution Status CKD (chronic kidney disease) stage 4, GFR 15-29 ml/min chronic Diabetes chronic Essential (primary) hypertension chronic Tobacco abuse chronic Chronic obstructive pulmonary disease chronic Smoking greater than 30 pack years [facility] Work Phone: Evaluation note* Diagnosis Onset Date Resolution Status Chronic obstructive pulmonary disease chronic Respiratory failure with hypoxia chronic Smoking greater than 30 pack years chronic Fissure in skin of foot acut e CKD (chronic kidney disease) stage 4, GFR 15-29 ml/min chronic DM type 1 (diabetes mellitus, type 1) chronic Tobacco abuse [facility] Work Phone: Evaluation note* Diagnosis Onset Date Resolution Status Fissure in skin of foot acut e CKD (chronic kidney disease) stage 4, GFR 15-29 ml/min chronic DM type 1 (diabetes mellitus, type 1) chronic Tobacco abuse chronic Chronic obstructive pulmonary disease chronic Smoking greater than 30 pack years [facility] Work Phone: Evaluation note* Diagnosis Onset Date Resolution Status CKD (chronic kidney disease) stage 4, GFR 15-29 ml/min chronic DM type 1 (diabetes mellitus, type 1) chronic Hyperlipidemia chronic 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 Atherosclerosis of coronary artery of [place] without angina pectoris chronic Chronic obstructive pulmonary disease chronic Cigarette nicotine dependence [facility] Work Phone: Evaluation note* Diagnosis Onset Date Resolution Status Atherosclerosis of coronary artery of [place] without angina pectoris chronic Chronic obstructive pulmonary disease chronic Cigarette nicotine dependence chronic Atherosclerosis of coronary artery of [place] without angina pectoris chronic Essential (primary) hypertension chronic Hyperlipidemia [facility] Work Phone: evaluation note* Diagnosis Onset Date Resolution Status Atherosclerosis of coronary artery of [place] heart without angina pectoris chronic Essential (primary) hypertension chronic Hyperlipidemia [facility] Work Phone: evaluation note* Diagnosis Onset Date Resolution Status Lung nodule, solitary acute Chronic obstructive pulmonary disease chronic Smoking greater than 30 pack years chronic CKD (chronic kidney disease) stage 4, GFR 15-29 ml/min chronic DM type 1 (diabetes mellitus, type 1) [facility] Work Phone: evaluation note* Diagnosis Onset Date Resolution Status CKD (chronic kidney disease) stage 4, GFR 15-29 ml/min chronic DM type 1 (diabetes mellitus, type 1) [facility] Work Phone: evaluation note* Diagnosis Onset Date Resolution Status CKD (chronic kidney disease) stage 4, GFR 15-29 ml/min chronic DM type 1 (diabetes mellitus, type 1) chronic Lung nodule, solitary acute Chronic obstructive pulmonary disease chronic Respiratory failure with hypoxia [facility] Work Phone: evaluation note* Diagnosis Onset Date Resolution Status Lung nodule, solitary acute Chronic obstructive pulmonary disease chronic Respiratory failure with hypoxia chronic Atherosclerosis of coronary artery of [place] without angina pectoris chronic Essential (primary) hypertension chronic Hyperlipidemia [facility] Work Phone: evaluation note* Diagnosis Onset Date Resolution Status Lung nodule, solitary acute Chronic obstructive pulmonary disease chronic Respiratory failure with hypoxia chronic Atherosclerosis of coronary artery of [place] without angina pectoris chronic Essential (primary) hypertension chronic Hyperlipidemia chronic Body mass index (BMI) less than 16.5 chronic CKD (chronic kidney disease) stage 4, GFR 15-29 ml/min chronic DM type 1 (diabetes mellitus, type 1) chronic Nicotine abuse chronic Polyneuropathy due to type 1 diabetes mellitus [facility] Work Phone: evaluation note* Diagnosis Onset Date Resolution Status Lung nodule, solitary acute Chronic obstructive pulmonary disease chronic Respiratory failure with hypoxia chronic Atherosclerosis of coronary artery of [place] without angina pectoris chronic Essential (primary) [...] abuse chronic Respiratory failure with hypoxia chronic [facility] Work Phone: Evaluation note* Diagnosis Onset Date Resolution Status Atherosclerosis of coronary artery of [place] without angina pectoris chronic Essential (primary) [...] chronic Respiratory failure with hypoxia [facility] Work Phone: Evaluation note* Diagnosis SDH (subdural hematoma) (HCC)- Primary Subdural hemorrhage SDH (subdural hematoma) (HCC) Subdural hemorrhage Stage 4 chronic kidney disease (HCC) COPD (chronic obstructive pulmonary disease) (HCC) Chronic airway obstruction, not elsewhere classified Type 1 diabetes mellitus with kidney complication (HCC) Hyperlipidemia Other and unspecified hyperlipidemia Diabetic neuropathy associated with type 1 diabetes mellitus (HCC) documented in this encounter [facility]* Diagnosis SDH (subdural hematoma) (HCC) Subdural hemorrhage documented in this encounter [facility] TXCOMEvaluation note* Diagnosis Hypercapnic respiratory failure (HCC)- Primary Hypercapnic respiratory failure (HCC) Chronic obstructive pulmonary disease, unspecified COPD type (HCC) documented in [facility] encounter [facility]* Diagnosis Chronic respiratory failure with hypoxia and hypercapnia (HCC) [J96.11, J96.12]- Primary Centrilobular emphysema (HCC) [J43.2] Bilateral pleural effusion [J90] Unspecified pleural effusion Hx of bacterial pneumonia [Z87.01] Cigarette nicotine dependence without complication [F17.210] documented in this encounter [facility]* Diagnosis Chronic respiratory failure with hypoxia [...] hemorrhage documented in this encounter [facility] Author Favian Nicholas [facility] Note Date/Time May 28, 2025 12:4 8am [facility] Medical Records Department [address] [place] [address] H&P Exam - Hospitalist 05/28/25 0039 MR#: [id number] Acct: [id number] Name: SANDY DENG Rep #:[id number] 03 : 1960 64 From: Favian Nicholas DO PCP: Dr. Bird Lujan MD Status :ADM IN [facility] - General General Date of Service: 05/28/25 Chief Complaint: Shortness of breath HPI Narrative SANDY DENG, is a 64 F who presents with a 2-day history of shortness of breath. This is a 64-year-old female dialysis patient who does home dialysis has been short of breath for the past 3 days. She is short of breath all the time. Patient has been doing home dialysis and had most recently this past Friday with no issues but then on Friday patient had pain in her arm and had to be discontinued. They spoke with the dialysis nurse who told them that the venous line may have infiltrated. They present here concern for worsening fluidbuildup due to missing dialysis. Patient had a chest x-ray that showed some perhaps some pulmonary vascular congestion. Patient received methylprednisoloneand bronchodilators in the emergency room. [facility] Medical History On home oxygen therapy Wears [...] nodule, solitary Fissure in skin of foot Carlotta's sign present Tobacco abuse CKD (chronic kidney [...] Anxiety Depression Atherosclerosis of coronary artery of [place] heart without angina pectoris NSTEMI (non-ST elevated [...] denosumab 60 mg/mL subcutaneous 60 mg subcut [id number] bone health 06/10/24 07/09/24 Rx syringe (Prolia) #1 mL clopidogrel 75 mg tablet 75 mg PO DAILY anti platelet #90 07/26/24 01/03/25 Rx tabs nitroglycerin 0.4 mg sublingual 0.4 mg sublingual Q5-1 5M PRN chest 10/21/24 Unknown Rx tablet pain #25 tabs metoprolol tartrate 50 mg tablet 50 mg PO BID blood pr essure #180 11/11/24 01/03/25 Rx tabs amlodipine 10 mg tablet (Norvasc) 10 mg PO DAILY blood pressure 30 11/20/24 01/03/25 Rx days #30 tabs buspirone 7.5 mg tablet 7.5 mg PO DAILY Antianxiety 12/14/24 01/03/25 History sevelamer carbonate 800 mg tablet 800 mg PO TID To low er Phosphorus 12/14/24 01/03/25 History cefdinir 300 mg capsule 300 mg PO BID 5 days #10 cap s 01/06/25 Unknown Rx pseudoephedrine-guaifenesin ER 60 1 tab PO BID cold sy mptoms #14 tabs 01/06/25 Unknown Rx mg-600 mg tablet,extend release 12hr (Mucinex D) blood-glucose sensor (FreeStyle #6 ea 02/09/25 Unknown [...] infusion . continuous U-100 Insulin) #54 mL ondansetron 4 mg disintegrating 4 mg PO Q8H PRN PRN Na usea #10 tabs 05/08/25 Unknown Rx tablet roflumilast 500 mcg tablet 500 mcg PO DAILY breathing #30 tabs 05/11/25 Unknown Rx (Daliresp) fluticasone fur. 200 mcg-umeclid 1 inh inhalation ALEJANDRA Y breathing 05/18/25 Unknown Rx 62.5 mcg-vilant 25 mcg #3 ea inhalat.powder (Trelegy Ellipta) Allergy/AdvReac Type Severity Reaction Status Date / Time No Known Allergies Allergy Verified 05/27/25 19:11 Family History Mother Heart disease COPD (chronic [...] feel safe at home: Yes ROS ROS Narrative Bruising on chest from removal of tunneled dialysis catheter. Described as overall improved from previous. Weight has gone up 0.8 kg. Has chronic lower extremity edema but no change recently. All review of systems were negative except as mentioned above in the history of present illness and the other reviewof systems. Vital Signs Vital Signs Vital Signs: 05/27/25 19:07 05/27/25 19:11 05/27/25 19:11 Temperature 36.8 C 36.5 C L Temperature Source Oral Oral Pulse Rate 71 71 Respiratory Rate 20 H 20 H Respiratory Effort Short of Breath Respiratory Depth Normal Respiratory Pattern Normal Blood Pressure 166/66 H 166/66 H Blood Pressure Mean 99 99 Pulse Ox 100 100 Oxygen Delivery Method Nasal Cannula Venturi Mask Nasal Cannula Oxygen Flow Rate (L/min) 3 3 3 05/27/25 19:50 05/27/25 20:11 05/27/25 20:22 Temperature 37.0 C Temperature Source Oral Pulse Rate 69 78 Respiratory Rate 18 20 H Respiratory Effort Respiratory Depth Respiratory Pattern Normal Blood Pressure 166/66 H Blood Pressure Mean 99 Pulse Ox 999 Oxygen Delivery Method Nasal Cannula Nasal Cannula Oxygen Flow Rate (L/min) 2 3 05/27/25 21:00 05/27/25 22:00 05/27/25 23:00 Temperature Temperature Source Pulse Rate 72 80 80 Respiratory Rate Respiratory Effort Respiratory Depth Respiratory Pattern Blood Pressure 165/78 H 168/78 H 170/63 H Blood Pressure Mean 107 108 98 Pulse Ox 99 99 99 Oxygen Delivery Method Nasal Cannula Oxygen Flow Rate (L/min) 3 05/28/25 00:00 05/28/25 00:31 Temperature 36.9 C Temperature Source Pulse Rate 80 77 Respiratory Rate 22 H Respiratory Effort Respiratory Depth Respiratory Pattern Blood Pressure 173/63 H 165/63 H Blood Pressure Mean 99 97 Pulse Ox 99 97 Oxygen Delivery Method Oxygen Flow Rate (L/min) Weight Weight: 47.3 kg Body Mass Index (BMI) 16.8 Physical Exam Const alert and no apparent distress General Appearance: cooperative HEENT normocephalic and head/scalp atraumatic Neck no lymphadenopathy Neck Narrative: Positive JVD Resp Resp Narrative: Diminished breath sounds throughout bilateral lung russell. Faint end expiratorywheeze. Cardio regular rate, regular rhythm, S1 normal heart sound and S2 normal heart sound GI normal to inspection, nondistended, normoactive bowel sounds, soft to palpation,non-tender and non-distended Extremity normal to inspection and full ROM Skin Skin Narrative: Does have ecchymosis on her anterior chest. Neuro moves all extremities and no focal motor deficits Sensorium / Orientation: awake and alert Psych Mood & Affect: anxious Results Lab / Micro Data Attestation: I reviewed the patient's lab results. 05/27/25 19:26 05/27/25 21:15 Labs: Laboratory Results - last 24 hr 05/27/25 19:26: WBC 5.0, RBC 3.47 L, Hgb 9.8 L, Hct 32.2 L, MCV 92.8, MCH 28.2, MCHC 30.4 L, RDW Std Deviation 49.4 H, RDW Coeff of Iron 14.6, Plt Count 169, MPV11.4, Immature Gran % (Auto) 0.400, Neut % (Auto) 69.6, Lymph % (Auto) 16.0 L, Lynn % (Auto) 10.0, Eos % (Auto) 3.4, Baso % (Auto) 0.6, Absolute Neuts (auto) 3.5, Absolute Lymphs (auto) 0.80 L, Nucleated RBC % 0, Sodium Cancelled, Potassium Cancelled, Chloride Cancelled, Carbon Dioxide Cancelled, Anion Gap Cancelled, BUN Cancelled, Creatinine Cancelled, Estim Creat Clear Calc Cancelled, Est GFR (MDRD) Non-Af Cancelled, BUN/Creatinine Ratio Cancelled, Glucose Cancelled, Calcium Cancelled, Troponin T High Sens Cancelled 05/27/25 21:15: Sodium 142, Potassium 5.0, Chloride 108, Carbon Dioxide 24.1, Anion Gap 10, BUN 53 H, Creatinine 3.91 H, Estim Creat Clear Calc 10.71 L, Est GFR (MDRD) Non-Af 12 L, BUN/Creatinine Ratio 13.4, Glucose 109 H, Calcium 8.3, Troponin T High Sens 135 H* 05/27/25 23:04: Troponin T Hi Sens 2 Hr 133 H* Rhythm Strip Rhythm Strip: Sinus Rhythm Rate: 70 Ectopy: None Imaging Radiology Impression Chest X-Ray 05/27/25 19:50 IMPRESSION: Pulmonary findings as above. Reading Location: [facility] Assessment & Plan Assessment/Plan (1) COPD exacerbation: PLAN: Lungs sound very diminished. Will continue methylprednisolone as well as bronchodilators (2) End stage renal disease: PLAN: On home dialysis. Patient did not complete her dialysis session on the due to pain and concern for infiltration of the venous port. Dr. Huerta has been contacted by the emergency room answered the patient to have dialysis today on the . (3) Elevated troponin I level: PLAN: Suspect demand ischemia due to the dyspnea from COPD but also level is likely skewed upwards given her end-stage renal disease. PLAN: Plan Diabetes mellitus type 1: On insulin pump. Will continue with that. Check glucose before every meal and at bedtime. CAD: Stable continue aspirin and clopidogrel Hypertension: Stable continue with amiodarone and metoprolol titrate VTE prophylaxis with subcu heparin CODE STATUS: Addressed with the patient. Patient wishes to be full code. Discussed with the patient's at bedside. Charges/Coding Visit Charges Inpatient E&M: 17578 Init Hosp L3 05/28/25 0048 <Electronically signed by Favian Nicholas DO> Cosigner Signature (if applicable): CC: Dr. Bird Lujan MD; Dr. Favian Nicholas DO~ Signed [facility] Work Phone: History of Present illness Narrative* Kidney Transplant * [...] Lujan. * Referral: Dr. Christy Huerta (tel: [phone] fax: [phone]). * I am seeing SANDY DENG at the referring provider's request for surgical suitability for renaltransplant candidate listing at [facility]. * History of Present Illness Comments: Ms. [...] Information: * Dr. Viraj No is her Grey Tender. * Insulin use for 22 years * [...] * She was not seen by a Career Orientation Teacher. * Psych History: * No history * Psychosocial: * Smoking: yes, takes Bupropion. She is cutting back and now smokes 3 cigarettes per day. She has a 50 pack/year history. * Marijuana/Illicits: No * Alcohol: no * Financial: * She is retired. 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 * [...] is vaccinated against COVID-19 but not boosted. [id number] [address] Work Phone: Hospital Discharge instructionsAdditional [...] worsen. Zofran as needed for nausea and vomiting.[facility] Work Phone: Reason for referral (narrative)No reason for referral information availableWPaulding [facility] Work Phone: Chief Complaint and Reason [...] diabetes mellitus Atherosclerosis of coronary artery of [place] heart without angina pectoris Chronic obstructive pulmonary disease Cigarette nicotine dependence Chief Complaint 3 M FU CP CP Amb Documentation Amb Documentation OVERDUE FOR OV (2020) COPD COPD Reason for Visit Atherosclerosis of c oronary artery of [place] heart without angina pectoris Chronic obstructive pulmonary disease Cigarette nicotine dependence Atherosclerosis of coronary artery of [place] heart without angina pectoris Essential (primary) hypertension Hyperlipidemia Chief Complaint 3 M FU CP CP Amb Documentation Amb Documentation OVERDUE FOR OV (2020) COPD COPD SMOKER Reason for Visit Atherosclerosis of c oronary artery of [place] heart without angina pectoris Chronic obstructive pulmonary disease Cigarette nicotine dependence Atherosclerosis of coronary artery of [place] heart without angina pectoris Essential (primary) hypertension Hyperlipidemia Chief Complaint CP CP Amb Documentation Amb Documentation OVERDUE FOR OV (2020) COPD COPD SMOKER COPD COPD Reason for Visit Atherosclerosis of c oronary artery of [place] heart without angina pectoris Essential (primary) hypertension Hyperlipidemia Chief Complaint COPD COPD 4 M FU 6 M FU, RS 05/15 FLOR NODULE Reason for Visit Lung nodule, [...] with hypoxia Atherosclerosis of coronary artery of [place] heart without angina pectoris Essential (primary) hypertension Hyperlipidemia Chief Complaint FLANK PAIN, ABD PAIN 3 M FU 6 M FU 3 M FU RENAL,PTH, CBC Reason for Visit Lung nodule, solitar y Chronic obstructive pulmonary disease Respiratory failure with hypoxia Atherosclerosis of coronary artery of [place] heart without angina pectoris Essential (primary) hypertension [...] with hypoxia Atherosclerosis of coronary artery of [place] heart without angina pectoris Essential (primary) hypertension [...] Visit Atherosclerosis of c oronary artery of [place] heart without angina pectoris Essential (primary) hypertension [...] type 1 (diabetes mellitus, type 1) De cember 2023 1:39pm Hypertension October 07, 2024 1 :39pm Insulin pump titration October 07 1:39pm Osteoporosis October 07, 2024 1 :39pm Presence of insulin pump October 07, 2 024 1:39pm Underweight October 07, 2024 1 :39pm Hypercarbia November 04, 2024 3: 09pm Lung nodule, multiple November 04, 2024 3:09pm Chronic hypoxic respiratory failure Carlos Alberto tran 2024 3:09pm Chronic obstructive pulmonary disease Ja rinku 2024 3:09pm ESRD on hemodialysis November 04, 2024 3 :09pm Hypertension November 04, 2024 3: 09pm ESRD (end stage renal disease) on dialys is December 02, 2024 2:26pm Atherosclerosis of coronary artery of [place] heart without angina pectoris December 16, 2024 1:50pm ESRD (end stage renal disease) on dialys is December 16, 2024 1:50pm Essential (primary) hypertension Februar 2024 1:50pm Hyperlipidemia December 16, 2024 1:50pm [...] DM type 1 (diabetes mellitus, type 1) [facility] 2024 11:39pm Hypertension January 03, 2025 11:3 9pm Acute hyperkalemia January 03, 2025 11:3 9pm Chronic hypoxemic respiratory failure [facility] 2024 11:39pm AV fistula [...] 2024 2:26pm Atherosclerosis of coronary artery of [place] heart without angina pectoris December 16, 2024 [...] DM type 1 (diabetes mellitus, type 1) [facility] 2024 11:39pm Hypertension January 03, 2025 11:3 9pm Acute hyperkalemia January 03, 2025 11:3 9pm Chronic hypoxemic respiratory failure [facility] 2024 11:39pm AV fistula January 11, 2025 2:5 5pm DM type 1 (diabetes mellitus, type 1) [facility] 2024 8:40am High cholesterol [...] Admit Date Atherosclerosis of coronary artery of [place] heart without angina pectoris December 16, 2024 [...] DM type 1 (diabetes mellitus, type 1) [facility] 2024 11:39pm Hypertension January 03, 2025 11:3 9pm Acute hyperkalemia January 03, 2025 11:3 9pm Chronic hypoxemic respiratory failure [facility] 2024 11:39pm AV fistula January 11, 2025 2:5 5pm DM type 1 (diabetes mellitus, type 1) [facility] 2024 8:40am High cholesterol [...] DM type 1 (diabetes mellitus, type 1) [facility] 2024 8:40am High cholesterol January 27, 2025 8:4 0am Hypertension January 27, 2025 8:4 0am Insulin pump titration January 27, 2025 8:40am Osteoporosis January 27, 2025 8:4 0am Presence of insulin pump January 27 8:40am Vitamin D deficiency January 27, 2025 8: 40am AV fistula March 22, 2025 12:59 pm Chief Complaint Admit Date 3 M , RS 01/06January 27, 2025 8:4 0am 10 WK FU March 22, 2025 12:59 pm E-ORDER April 09, 2025 10:44 am abn labs April 09, 2025 12:22 pm gen weakness back pain May 08, 2025 7: 59am 3 M FU May 18, 2025 8:42 am Reason for Visit Admit Date DM type 1 (diabetes mellitus, type 1) [facility] 2024 8:40am High cholesterol [...] Complaint Admit Date 3 M FU, RS /January 27, 2025 [...] DM type 1 (diabetes mellitus, type 1) [facility] 2024 8:40am High cholesterol [...] on hemodialysis May 18, 2025 8:4 2am Chief Complaint Admit Date 10 WK FU March 22, 2025 12:59 pm E-ORDER April 09, 2025 10:44 am abn labs April 09, 2025 12:22 pm gen weakness back pain May 08, 2025 7: 59am 3 M FU May 18, 2025 8:42 am LOW POTASSIUM May 20, 2025 8:20 pm CHF EXACERBATION May 28, 2025 12:2 1am CHF EXACERBATION May 28, 2025 12:3 9am Reason for Visit Admit Date AV fistula March 22, 2025 12:59 pm Hypercarbia May 18, 2025 8:42 am Lung nodule, multiple May 18, 2025 8: 42am Chronic hypoxic respiratory failure May 18, 2025 8:42am Chronic obstructive pulmonary disease Ju ly 2024 8:42am ESRD on hemodialysis May 18, 2025 8:4 2am Elevated troponin I level May 28 12:21am End stage renal disease May 28, 2025 12:21am COPD exacerbation May 28, 2025 12:2 1am Chief Complaint Admit Date 10 WK FU March 22, 2025 12:59 pm E-ORDER April 09, 2025 10:44 am abn labs April 09, 2025 12:22 pm gen weakness back pain May 08, 2025 7: 59am 3 M FU May 18, 2025 8:42 am LOW POTASSIUM May 20, 2025 8:20 pm CHF EXACERBATION May 28, 2025 12:2 1am CHF EXACERBATION May 28, 2025 12:3 9am CHF EXACERBATION May 28, 2025 7:59 pm CHF EXACERBATION May 29, 2025 11:4 8am CHF EXACERBATION May 29, 2025 5:07 pm CHF EXACERBATION May 30, 2025 8:17 am CHF EXACERBATION May 30, 2025 8:24 am CHF EXACERBATION May 30, 2025 4:37 pm CHF EXACERBATION May 31, 2025 8:18 am CHF EXACERBATION May 31, 2025 6:11 pm CHF EXACERBATION June 01, 2025 7:55 am Reason for Visit Admit Date AV fistula March 22, 2025 12:59 pm Hypercarbia May 18, 2025 8:42 am Lung nodule, multiple May 18, 2025 8: 42am Chronic hypoxic respiratory failure May 18, 2025 8:42am Chronic obstructive pulmonary disease Ju ly 2024 8:42am ESRD on hemodialysis May 18, 2025 8:4 2am Arteriovenous fistula stenosis May 12:21am Cachexia May 28, 2025 12:2 1am Dialysis AV fistula malfunction May 12:21am Dyspnea May 28, 2025 12:2 1am Elevated troponin I level May 28 12:21am End stage renal disease May 28, 2025 12:21am Intermittent chest pain May 28, 2025 12:21am Lung nodule, multiple May 28, 2025 12 :21am Atherosclerosis of coronary artery of [place] heart without angina pectoris May 28, 2025 12:21am Chronic obstructive pulmonary disease Ju ly 2024 12:21am COPD exacerbation May 28, 2025 12:2 1am DM type 1 (diabetes mellitus, type 1) Ju ly 2024 12:21am ESRD (end stage renal disease) on dialys is May 28, 2025 12:21am Essential (primary) hypertension May 282024 12:21am Hypertension May 28, 2025 12:2 1am Family History Relationship Condition Age at Onset [...] Will No August 26 8:15pm Power of Banking And Finance Instructor No August 26, 2020 8:15pm Advance Directive Response Recorded Date/ Time Advance Directives No February 04 7:01am Living Will No August 26 7:15pm Power of Banking And Finance Instructor No August 26, 2020 7:15pm Date Activated [...] Do you have a Healthcare Power of Banking And Finance Instructor? No August 26, 2020 8:15pm Living Will No April 14, 2024 10:45pm Do you have a Healthcare Power of Banking And Finance Instructor? No April 14, 2024 10:45pm Advance Directives No January 10 9:10am Living Will No July 24, 2024 12:39am Do you have a Healthcare Power of Banking And Finance Instructor? No July 24, 2024 12:39am Living Will No November 20 8:06pm Do you have a Healthcare Power of Banking And Finance Instructor? No November 20, 2024 8:06pm Living Will No December 14 2:25pm Do you have a Healthcare Power of Banking And Finance Instructor? No December 14, 2024 2:25pm Living Will No January 04, 2025 1:39am Do you have a Healthcare Power of Banking And Finance Instructor? No January 04, 2025 1:39am Advance Directive Response Recorded Date/ Time Living Will No April 14, 2024 10:45pm Do you have a Healthcare Power of Banking And Finance Instructor? No April 14, 2024 10:45pm Advance Directives No January 10 9:10am Living Will No December 14 2:25pm Do you have a Healthcare Power of Banking And Finance Instructor? No December 14, 2024 2:25pm Living Will No January 04, 2025 1:39am Do you have a Healthcare Power of Banking And Finance Instructor? No January 04, 2025 1:39am Advance Directive Response Recorded Date/ Time Living Will No April 14, 2024 10:45pm Do you have a Healthcare Power of Banking And Finance Instructor? No April 14, 2024 10:45pm Advance Directives No January 10 9:10am Living Will No December 14 2:25pm Do you have a Healthcare Power of Banking And Finance Instructor? No December 14, 2024 2:25pm Living Will No January 04, 2025 1:39am Do you have a Healthcare Power of Banking And Finance Instructor? No January 04, 2025 1:39am Do you have a Healthcare Power of Banking And Finance Instructor? No April 09, 2025 12:26pm Advance Directive Response Recorded Date/ Time Advance Directives No January 10 9:10am Do you have a Healthcare Power of Banking And Finance Instructor? No April 09, 2025 12:26pm Do you have a Healthcare Power of Banking And Finance Instructor? No May 08, 2025 8:07am Advance Directive Response Recorded Date/ Time Do you have a Healthcare Power of Banking And Finance Instructor? No April 09, 2025 12:26pm Do you have a Healthcare Power of Banking And Finance Instructor? No May 08, 2025 8:07am Advance Directives No January 10 9:10am Advance Directive Response Recorded Date/ Time Do you have a Healthcare Power of Banking And Finance Instructor? No May 20, 2025 9:31pm Do you have a Healthcare Power of Banking And Finance Instructor? No April 09, 2025 12:26pm Do you have a Healthcare Power of Banking And Finance Instructor? No May 08, 2025 8:07am Advance Directives No January 10 9:10am Advance Directive Response Recorded Date/ Time Do you have a Healthcare Power of Banking And Finance Instructor? No May 20, 2025 9:31pm Do you have a Healthcare Power of Banking And Finance Instructor? No May 27, 2025 7:11pm Do you have a Healthcare Power of Banking And Finance Instructor? No April 09, 2025 12:26pm Do you have a Healthcare Power of Banking And Finance Instructor? No May 08, 2025 8:07am Advance Directives No January 10 9:10am Advance Directive Response Recorded Date/ Time Do you have a Healthcare Power of Banking And Finance Instructor? No May 20, 2025 9:31pm Do you have a Healthcare Power of Banking And Finance Instructor? No May 28, 2025 1:20am Do you have a Healthcare Power of Banking And Finance Instructor? No April 09, 2025 12:26pm Do you have a Healthcare Power of Banking And Finance Instructor? No May 08, 2025 8:07am Advance Directives No January 10 9:10am Summary Purpose Reason for Referral Specialty Diagnoses / Procedures Referred By Contac t Referred To Contact Radiology Diagnoses SDH (subdural hematoma) (HCC) Procedures CT head wo IV contrast Madeline Montalvo, STADIUM MANAGER - BUILDING SERVICEMAN [address] [place] [address] Referral ID Status Reason Start Date Expiration Date V isits Requested Visits Authorized [id number] Authorized 07/27/2024 07/27/2025 1 1 Specialty Diagnoses / Procedures Referred By Contac t Referred To Contact Radiology Diagnoses SDH (subdural hematoma) (HCC) Procedures CT head wo IV contrast Elieser Solis MD [address] [place] [address] [address] [place] [address] Referral ID Status Reason Start Date Expiration Date Visits Re quested Visits Authorized [id number] Closed 07/27/2024 09/10/2024 1 1 Additional Source [...] DATE CREATED AUTHOR AUTHOR'S ORGANIZ ATION 06/03/2022 [facility] DATE CREATED AUTHOR AUTHOR'S ORGANIZ ATION 12/18/2024 [facility] DATE CREATED AUTHOR AUTHOR'S ORGANIZ ATION 12/31/2024 [facility] DATE CREATED AUTHOR AUTHOR'S ORGANIZ ATION 06/01/2025 [facility] Care Teams (unrecognized sec tion and [...] Refe rring Provider Active Jeanna Davis NP, NP-C Attending Provider Active Team Status: Active Member [...] Active Member Role Status Dates Jeanna Davis 2ND PRESSMAN, 2ND PRESSMAN-C Referring Provider, Other Pr ovider Active Dr. Sin Lujan MD Primary Care Provider Activ e Dr. Rios Cordova MD Attending Provider Active Team Status: Inactive Member Role Status Dates Jeanna Davis 2ND PRESSMAN, 2ND PRESSMAN-C Attending Provider, Referrin g Provider Active Dr. Sin Lujan MD Primary Care Provider Activ e Team Status: Inactive Member Role Status Dates Dr. Sin Lujan MD Primary Care Provider Activ e Dr. Christy Huerta DO Attending Provider Active Team Status: Active Member Role Status Jeanna Davsi 2ND PRESSMAN, 2ND PRESSMAN-C Referring Provider, Other Pr ovider Active Dr. [...] Primary Care Provider Activ e Jeanna Davis 2ND PRESSMAN, 2ND PRESSMAN-C Attending Provider Active Team Status: Inactive Member Role Status Dates Dr. Sin Lujan MD Primary Care Provider, Refe rring Provider Active Kena Sandy 2ND PRESSMAN, 2ND PRESSMAN-C Attending Provider Active Team Status: Inactive Member Role Status Dates Dr. Sin Lujan MD Primary Care Provider Activ e Jeanna Davis 2ND PRESSMAN, 2ND PRESSMAN-C Attending Provider, Referrin g Provider Active Team Status: Active Member Role Status Dates Dr. Bird Lujan MD Family Provider Active Dr. Bird Lujan MD Primary Care Provider Acti ve Team Status: Inactive Member Role Status Dates Dr. Bird Lujan MD Primary Care Provider, Ref erring Provider Active Kena Sandy 2ND PRESSMAN, 2ND PRESSMAN-C Attending Provider Active Team Status: Inactive Member Role Status Dates Dr. Bird Lujan MD Primary Care Provider, Ref erring Provider Active Brenda Medrano NP-C Attending Provider Active Team Status: Inactive Member Role Status Dates Dr. Bird Lujan MD Primary Care Provider, Ref erring Provider Active Jeanna Davis 2ND PRESSMAN, 2ND PRESSMAN-C Attending Provider Active Team Status: Inactive Member Role Status Dates Dr. Bird Lujan MD Primary Care Provider Acti ve Dr. Christy Huerta DO Attending Provider Active Team Status: Inactive Member Role Status Dates Dr. Bird Lujan MD Primary Care Provider Acti ve Jeanna Davis 2ND PRESSMAN, 2ND PRESSMAN-C Attending Provider, Referrin g Provider Active Team Status: Inactive Member Role Status Dates Dr. Bird Lujan MD Primary Care Provider Acti ve Dr. Sherice Skelton , DPM Attending Provider, Referring Pr ovider Active Forgesmith Relationship Specialty Start Date End Date Bird Lujan [address] [place] [phone] PCP - General Family Medicine 07/26/24 Forgesmith Relationship Specialty Start Date End Date Bird Lujan [address] [place] [phone] PCP - General Family Medicine 07/26/24 Param Sousa, BO Registered Nurse Academic Coach Manager 08/11/24 Forgesmith Relationship Specialty Start Date End Date Bird Lujan [address] [place] [address] PCP - General Family Medicine 07/26/24 Param Sousa, RN Registered Nurse Academic Coach Manager 08/11/2409/26 Forgesmith Relationship Specialty Start Date End Date Bird Lujan [address] [place] [address] PCP - General Family Medicine 07/26/24 Forgesmith Relationship Specialty Start Date End Date Bird Lujan [address] [place] [address] PCP - General Family Medicine 07/26/24 Forgesmith Relationship Specialty Start Date End Date Bird Lujan [address] [place] [address] PCP - General Family Medicine 07/26/24 Param Sousa, RN Registered Nurse Academic Coach Manager 08/11/2409/26 Forgesmith Relationship Specialty Start Date End Date Bird Lujan MD [address] [facility] [place], [place] [id number] PCP - General 10/17/08 Team Status: Active [...] 2024 End: October 16, 2024 Jeanna Davis 2ND PRESSMAN, 2ND PRESSMAN-C Attending Provider Active Start: October 16, 2024 End: October 16, 2024 Jeanna Davis 2ND PRESSMAN, 2ND PRESSMAN-C Referring Provider Active Start: October 16, 2024 [...] 2024 End: November 04, 2024 Jeanna Davis 2ND PRESSMAN, 2ND PRESSMAN-C Attending Provider Active Start: November 04, 2024 [...] 2024 End: December 16, 2024 Mynor Anthony 2ND PRESSMAN, 2ND PRESSMAN-C Attending Provider Active S tart: December 16, [...] t: January 04, 2025 Dr. Christy Huerta , Other Provider Active Sta rt: January 04, [...] t: January 04, 2025 Dr. Terrance Alva , Other Provider Active Start : January 04, [...] rt: January 05, 2025 Dr. Terrance Alva , Attending Provider Active S tart: January 05, [...] t: January 06, 2025 Dr. Christy Huerta , Other Provider Active Sta rt: January 06, 2025 Dr. He Cat MD Attending Provider Active Start: January 06, 2025 Dr. He Cat MD Other Provider Active Sta rt: January 06, 2025 Team Status: Inactive Member Role Status Dates Dr. Bird Lujan MD Primary Care Provider Acti ve Start: January 11, 2025 End: January 11, 2025 Jeanna Davis NP 2ND PRESSMAN-C Attending Provider Active Start: January 11, 2025 End: January 11, 2025 Jeanna Davis NP 2ND PRESSMAN-C Referring Provider Active Start: January 11, 2025 [...] January 27, 2025 End: January 27, 2025 MITCH MezaC Attending Provider Active Start: January 27, 2025 [...] January 11, 2025 End: January 11, 2025 MITCH Morgan NPC Attending Provider Active Start: January 11, 2025 End: January 11, 2025 MITCH Morgan NPC Referring Provider Active Start: January 11, 2025 End: January 11, 2025 Team Status: Inactive Member Role/Relationship Status Dates Dr. Bird Lujan MD Primary Care Provider Acti ve Start: January 11, 2025 End: January 11, 2025 Dr. Bird Lujan MD Referring Provider Active Start: January 11, 2025 End: January 11, 2025 BENTNO Bucio Attending Provider Active Star t: January 11, 2025 End: January 11, 2025 Team Status: Inactive Member Role/Relationship Status Dates Dr. Bird Lujan MD Primary Care Provider Acti ve Start: January 27, 2025 End: January 27, 2025 Dr. Bird Lujan MD Referring Provider Active Start: January 27, 2025 End: January 27, 2025 MITCH MezaC Attending Provider Active Start: January 27, 2025 [...] End: May 20, 2025 Dr. Alonzo Edwards DO Emergency Provider Active S tart: May 20, 2025 End: May 20, 2025 Team Status: Inactive Member Role/Relationship Status [...] End: May 20, 2025 Dr. Alonzo Edwards DO Attending Provider Active S tart: May 20, 2025 End: May 20, 2025 Dr. Alonzo Edwards DO Emergency Provider Active S tart: May 20, 2025 End: May 20, 2025 Team Status: Active Member Role/Relationship Status Dates Dr. Bird Lujan MD Primary Care Provider Acti ve Start: May 28, 2025 Dr. Bentley Salazar MD Emergency Provider Active Start: May 28, 2025 Dr. Favian Nicholas DO Admit Provider Active Star t: May 28, 2025 Dr. Favian Nicholas DO Attending Provider Active Start: May 28, 2025 Team Status: Active Member Role/Relationship Status Dates Dr. Bird Lujan MD Primary Care Provider Acti ve Start: May 28, 2025 Dr. Bentley Salazar MD Emergency Provider Active Start: May 28, 2025 Dr. Favian Nicholas DO Admit Provider Active Star t: May 28, 2025 Dr. Favian Nicholas DO Attending Provider Active Start: May 28, 2025 Dr. Favian Nicholas DO Other Provider Active Star t: May 28, 2025 Team Status: Inactive Member Role/Relationship Status Dates Dr. Bird Lujan MD Primary Care Provider Acti ve Start: May 28, 2025 End: June 01, 2025 Dr. Bentley Salazar MD Emergency Provider Active Start: May 28, 2025 End: June 01, 2025 Dr. Favian Nicholas DO Admit Provider Active Star t: May 28, 2025 End: June 01, 2025 Dr. Favian Nicholas DO Other Provider Active Star t: May 28, 2025 End: June 01, 2025 Dr. Christy Huerta DO Other Provider Active Sta rt: May 28, 2025 End: June 01, 2025 Dr. Brielle Tunrer MD Other Provider Active S tart: May 28, 2025 End: June 01, 2025 Dr. Favian Sinclair MD Other Provider Active Start : May 28, 2025 End: June 01, 2025 Dr. Stacy Huerta , DO Attending Provider Active S tart: May 28, 2025 End: June 01, 2025 Dr. Khai Bullard , DO Other Provider Active S tart: May 28, 2025 End: June 01, 2025 Team Status: Active Member Role/Relationship Status Dates Dr. Bird Lujan MD Primary Care Provider Acti ve Start: May 28, 2025 Dr. Bentley Salazar MD Emergency Provider Active Start: May 28, 2025 Dr. Favian Nicholas , DO Admit Provider Active Star t: May 28, 2025 Dr. Favian Nicholas , DO Other Provider Active Star t: May 28, 2025 Dr. Christy Huerta , DO Other Provider Active Sta rt: May 28, 2025 Dr. Khai Bullard , DO Other Provider Active S tart: May 28, 2025 Dr. Brielle Turner MD Attending Provider Active Start: May 28, 2025 Dr. Brielle Turner MD Other Provider Active S tart: May 28, 2025 Dr. Favian Sinclair MD Other Provider Active Start : May 28, 2025 Team Status: Active Member Role/Relationship Status Dates Dr. Bird Lujan MD Primary Care Provider Acti ve Start: May 29, 2025 Dr. Bentley Salazar MD Emergency Provider Active Start: May 29, 2025 Dr. Favian Nicholas DO Admit Provider Active Star t: May 29, 2025 Dr. Favian Nicholas , DO Other Provider Active Star t: May 29, 2025 Dr. Christy Huerta , DO Other Provider Active Sta rt: May 29, 2025 Dr. Khai Bullard , DO Other Provider Active S tart: May 29, 2025 Dr. Brielle Turnre MD Attending Provider Active Start: May 29, 2025 Dr. Brielle Turner MD Other Provider Active S tart: May 29, 2025 Dr. Favian Sinclair MD Other Provider Active Start : May 29, 2025 Team Status: Active Member Role/Relationship Status Dates Dr. Bird Lujan MD Primary Care Provider Acti ve Start: May 29, 2025 Dr. Bentley Salazar MD Emergency Provider Active Start: May 29, 2025 Dr. Favian Nicholas , DO Admit Provider Active Star t: May 29, 2025 Dr. Favian Nicholas , DO Other Provider Active Star t: May 29, 2025 Dr. Christy Huerta , DO Other Provider Active Sta rt: May 29, 2025 Dr. Khai Bullard , DO Attending Provider Active Start: May 29, 2025 Dr. Khai Bullard , DO Other Provider Active S tart: May 29, 2025 Dr. Brielle Turner MD Other Provider Active S tart: May 29, 2025 Dr. Favian Sinclair MD Other Provider Active Start : May 29, 2025 Team Status: Active Member Role/Relationship Status Dates Dr. Bird Lujan MD Primary Care Provider Acti ve Start: May 30, 2025 Dr. Bentley Salazar MD Emergency Provider Active Start: May 30, 2025 Dr. Favian Nicholas , Admit Provider Active Star t: May 30, 2025 Dr. Favian Nicholas , DO Other Provider Active Star t: May 30, 2025 Dr. Christy Huerta , DO Other Provider Active Sta rt: May 30, 2025 Dr. Brielle Turner MD Other Provider Active S tart: May 30, 2025 Dr. Favian Sinclair MD Other Provider Active Start : May 30, 2025 Dr. Stacy Huerta , DO Other Provider Active Start : May 30, 2025 Dr. Khai Bullard , DO Other Provider Active S tart: May 30, 2025 Ana Rosa BHARDWAJ PA-C Attending Provider Active Start: May 30, 2025 Team Status: Active Member Role/Relationship Status Dates Dr. Bird Lujan MD Primary Care Provider Acti ve Start: May 30, 2025 Dr. Bentley Salazar MD Emergency Provider Active Start: May 30, 2025 Dr. Favian Nicholas DO Admit Provider Active Star t: May 30, 2025 Dr. Favian Nicholas DO Other Provider Active Star t: May 30, 2025 Dr. Christy Huerta , DO Other Provider Active Sta rt: May 30, 2025 Dr. Brielle Turner MD Other Provider Active S tart: May 30, 2025 Dr. Favian Sinclair MD Other Provider Active Start : May 30, 2025 Dr. Stacy Huerta , DO Attending Provider Active S tart: May 30, 2025 Dr. Stacy Huerta , DO Other Provider Active Start : May 30, 2025 Dr. Khai Bullard , DO Other Provider Active S tart: May 30, 2025 Team Status: Active Member Role/Relationship Status Dates Dr. Bird Lujan MD Primary Care Provider Acti ve Start: May 30, 2025 Dr. Bentley Salazar MD Emergency Provider Active Start: May 30, 2025 Dr. Favian Nicholas , DO Admit Provider Active Star t: May 30, 2025 Dr. Favian Nicholas , DO Other Provider Active Star t: May 30, 2025 Dr. Christy Huerta , DO Other Provider Active Sta rt: May 30, 2025 Dr. Brielle Turner MD Other Provider Active S tart: May 30, 2025 Dr. Favian Sinclair MD Attending Provider Active S tart: May 30, 2025 Dr. Favian Sinclair MD Other Provider Active Start : May 30, 2025 Dr. Stacy Huerta , DO Other Provider Active Start : May 30, 2025 Dr. Khai Bullard , DO Other Provider Active S tart: May 30, 2025 Team Status: Active Member Role/Relationship Status Dates Dr. Bird Lujan MD Primary Care Provider Acti ve Start: May 31, 2025 Dr. Bentley Salazar MD Emergency Provider Active Start: May 31, 2025 Dr. Favian Nicholas , DO Admit Provider Active Star t: May 31, 2025 Dr. Favian Nicholas , DO Other Provider Active Star t: May 31, 2025 Dr. Christy Huerta , DO Other Provider Active Sta rt: May 31, 2025 Dr. Brielle Turner MD Other Provider Active S tart: May 31, 2025 Dr. Favian Sinclair MD Other Provider Active Start : May 31, 2025 Dr. Stacy Huerta , DO Attending Provider Active S tart: May 31, 2025 Dr. Stacy Huerta , DO Other Provider Active Start : May 31, 2025 Dr. Khai Bullard , DO Other Provider Active S tart: May 31, 2025 Team Status: Active Member Role/Relationship Status Dates Dr. Bird Lujan MD Primary Care Provider Acti ve Start: May 31, 2025 Dr. Bentley Salazar MD Emergency Provider Active Start: May 31, 2025 Dr. Favian Nicholas DO Admit Provider Active Star t: May 31, 2025 Dr. Favian Nicholas DO Other Provider Active Star t: May 31, 2025 Dr. Christy Huerta , DO Other Provider Active Sta rt: May 31, 2025 Dr. Brielle Turner MD Other Provider Active S tart: May 31, 2025 Dr. Favian Sinclair MD Attending Provider Active S tart: May 31, 2025 Dr. Favian Sinclair MD Other Provider Active Start : May 31, 2025 Dr. Stacy Huerta DO Other Provider Active Start : May 31, 2025 Dr. Khai Bullard , Other Provider Active S tart: May 31, 2025 Team Status: Active Member Role/Relationship Status Dates Dr. Bird Lujan MD Primary Care Provider Acti ve Start: June 01, 2025 Dr. Bentley Salazar MD Emergency Provider Active Start: June 01, 2025 Dr. Favian Nicholas DO Admit Provider Active Star t: June 01, 2025 Dr. Favian Nicholas DO Other Provider Active Star t: June 01, 2025 Dr. Christy Huerta , DO Other Provider Active Sta rt: June 01, 2025 Dr. Brielle Turner MD Other Provider Active S tart: June 01, 2025 Dr. Favian Sinclair MD Other Provider Active Start : June 01, 2025 Dr. Stacy Huerta DO Attending Provider Active S tart: June 01, 2025 Dr. Stacy Huerta , Other Provider Active Start : June 01, 2025 Dr. Khai Bullard , Other Provider Active S tart: June 01, 2025 Reason for Visit (unrecogniz ed section and content) Specialty Diagnoses / Procedures Referred By Contac t Referred To Contact Diagnoses SDH (subdural hematoma) (HCC) brain bleed Procedures [id number] Ino Conte MD [address] [place] [id number] [facility] [address] [place] [address] Referral ID Status Reason Start Date Expiration Date Visits Re quested Visits Authorized [id number] 1 1 Specialty Diagnoses / Procedures Referred By Contac t Referred To Contact Radiology Diagnoses SDH (subdural hematoma) (HCC) Procedures CT head wo IV contrast Elieser Solis MD [address] [place] [address] Referral ID Status Reason Start Date Expiration Date Visits Re quested Visits Authorized [id number] Closed 07/27/2024 09/10/2024 1 1 Reason Comments [...] Tyler MD [address] [place] [address] Phone: tel: fax: [facility] [address] [place] [address] Phone: tel: Referral ID Status Reason Start Date Expiration Date Visits Re quested Visits Authorized [id number] 1 1 Reason Comments Referral - Kidney Txp Scheduled Active and Recently Administ ered Medications (unrecognized section and content) Medication Order 08/08/2024 08/09/2024 08/10/2024 busPIRone (Buspar) tablet 7.5 mg 7.5 mg, Oral, 2 times daily, First dose on 08/02/24 at 1330 0845 (Given - Provider: Blue Middleton RN)2126 (Given - Provider: Joycelyn Welch RN) 09 (Given - Provider: Chava Rodriguez)2052 (Given - [...] Blue Middleton RN) 0919 (Given - Provider: Cahva Rodriguez) 0900 (Not Given - Provider: Jim [...] at 0900 0845 (Given - Provider: Blue Middletno RN)2127 (Given - Provider: Joycelyn Welch RN) [...] RN) 132 (Given - Provider: Jim Rodriguez, BO - [...] Middleton RN)1153 (Given - Provider: Blue Middleton, RN)1700 (Given - Provider: Blue Middleton, RN) 0800 (Given - Provider: Blue Middleton, RN)1302 [...] Units 2126 (Given - Provider: Joycelyn Welch, BO) 2052 (Given - Provider: oJycelyn Welch RN) ipratropium-albuterol (Duo-Neb) 0.5-2.5 mg/3 mL nebulizer solution 3 mL 3 mL, Nebulization, 3 times daily, First dose (after last modification) on 08/07/24 at 1400 0848 (Given - Provider: Sangeeta Rouse RCP)1344 (Given - Provider: Sangeeta Rouse RCP)2030 (Given - Provider: Daina Carvalho, JUDE) 0905 (Given - Provider: Mary Mcintosh, [employer])1433 (Given - Provider: Mary Mcintosh, JUDE)2239 (Given [...] 1153 (New Bag - Provider: Blue Middleton, BO)1453 (Stopped - Provider: Blue Middleton RN) predniSONE (Deltasone) tablet 40 mg 40 mg, Oral, Daily, First dose on 08/07/24 at 1145, For 5 days, On hold since 08/07/2024 at 1145 until manually unheld 0900 (Dose Auto Held - Provider: Khai Espana DO) 0900 (Dose Auto Held - Provider: Khai Espana DO) 0900 (Dose Auto Held - Provider: Khai Espana, )1640 (Unheld by provider - Provider: Automatic Discharge [...] PRN, mild pain (1-3), fever, Starting on [place] 08/01/24 at 1331, If inadequate response within [...] Blood sugar less than 70mg/dL, Starting on 07/26/24 at 1809, Start infusion following administration of dextrose 50% or glucagon. 0611 (New Bag - Provider: Joycelyn Welch RN) dextrose 50 % solution 12.5 g 12.5 g, IntraVENous, PRN, low blood sugar, Blood glucose less than 70 mg/dL and patient NOT ALERT or NPO., Starting on 07/26/24 at 1809, If patient does not respond [...] sedation for opioid reversal - MUST notify material controller provider immediately after first dose, may give [...] Bre Ortiz, JUDE)1533 (Given - Provider: Bre Ortiz, JUDE) busPIRone (Buspar) tablet 7.5 mg 7.5 mg, Oral, 2 times daily, First dose on Son[place] 08/12/24 at 2100 0812 (Given - Provider: Calixto Sanchez RN)2042 (Given - Provider: Romero Tobin, BO) 0845 (Given - Provider: Nikolay Rene, BO)204 (Given - Provider: Juanis Rojas, BO) 0834 [...] Reason: Other - Comment: medication not available) 09 (Not Given - Provider: Nikolay Rene RN [...] Sanchez RN)2042 (Given - Provider: Romero Tobin, OB) 0843 (Given - Provider: Nikolay Rene, BO)2043 (Given - Provider: Juanis Rojas, BO) 0833 (Given - Provider: Sindy Garrison, BO) heparin injection 5,000 Units 5,000 Units, SubCUTAneous, Every 12 hours scheduled (2 times per day), First dose on 08/16/24 at 1115 0811 (Given - Provider: Calixto Sanchez RN)2043 (Given - Provider: Romero Tobin, RN) 0842 (Given - Provider: Nikolay Rene, RN)2041 (Given - Provider: Juanis Rojas, RN) 0832 (Given - Provider: Sindy Garrison, RN) insulin glargine (Lantus) injection 5 Units 5 [...] Marylu Zamudio, BO)1838 (Given - Provider: Marylu Zamudio, RN) 0844 (Given - Provider: Nikolay Rene, BO)1238 (Given - Provider: Nikolay Rene, BO)1700 (Not Given - Provider: Nikolay Rene RN - Reason: Order parameters not met) 0834 (Given - Provider: Sindy Garrison, BO)1411 (Given - Provider: Sindy Garrison, BO - Comment: late lunch)1700 (Canceled Entry - [...] Nikolay Rene RN)1817 (Given - Provider: Nikolay Rene RN) 0840 (Given - Provider: Sindy Garrison, BO)1413 (Given - Provider: Sindy Garrison, BO - Comment: late lunch)1700 (Canceled Entry - [...] Rene RN) 0833 (Given - Provider: Sindy Garrison, [...] Rene RN) 0831 (Given - Provider: Sindy Garrison RN) potassium chloride CR (Klor-Con M10) ER tablet [...] Sanchez RN - Comment: clustered w meds 12/05 availability) 0843 (Given - Provider: Nikolay Rene RN) 0832 (Given - Provider: Sindy Garrison RN) tiotropium (Spiriva Respimat) 2.5 MCG/ACT inhaler 2 puff 2 puff, Inhalation, Daily, First dose on Soni 08/12/24 at 1815, On hold since Fri08/20/2024 at 1428 until manually unheld 0900 (Dose Auto Held - Provider: Glenda Ma MD) 09 (Dose Auto Held - Provider: Glenda Ma MD) 09 (Dose Auto Held - Provider: Glenda [...] Starting on Fri08/17/24 at 1646 sodium chloride (Triplett) 0.65 % nasal spray 1 spray 1 [...] or prosecute any alcohol or drug abuse patient.[facility] Center[facility] the event this information is protected by the Federal Confidentiality of Alcohol and Drug Abuse Patient Records regulations: The Federal rules restrict any use of the information to criminally investigate or prosecute any alcohol or drug abuse patient.[facility] Center[facility] the event this information is protected by the Federal Confidentiality of Alcohol and Drug Abuse Patient Records regulations: The Federal rules restrict any use of the information to criminally investigate or prosecute any alcohol or drug abuse patient.[facility] FOR RECORDS PERTAINING TO PATIENTS [...] BE BASED ON THE PRIMARY CLINICAL RECORDS. [facility] [employer] [facility]. provides no warranty or guarantee of the accuracy or completeness of information in this document.
--- NOTE | 2025-06-02 05:25 | RAD_ITS ---
PROCEDURE: CHEST 1 VIEW (PORTABLE) 06/02/2025 REASON FOR EXAM: SOB TECHNIQUE: Frontal view of the chest. COMPARISON: 05/27/2025 FINDINGS: Normal heart size. Persistent right mid and lower lung zone airspace disease, small adjacent effusion. No pneumothorax. Well inflated and clear left lung. RAD/Chest 1 View (Portable) IMPRESSION: Suspect right lung base pneumonia, no interval change. Reading Location: [facility]
[2025-06-02 05:33] LABS: Anion Gap 28 (5-15); BUN 59 mg/dL (4-19); BUN/Creat Ratio 14.9 RATIO (10-20); Calcium,Total 8.3 mg/dL (7.6-11.0); Carbon Dioxide 11.6 mmol/L (21.0-32.0); Chloride 93 mmol/L (98-108); Estimated Creatinine Clearance 10.57 ml/min (50-250); Glucose 366 mg/dL (70-99); Potassium 6.1 mmol/L (3.3-5.1)
[2025-06-02 06:01] LABS: Potassium 6.2 mmol/L (3.3-5.1)
[2025-06-02 06:30] LABS: BETA-HYDROXYBUTYRATE 8.3 mmol/L (0.0-0.3)
[2025-06-02] MEDS: Insulin Lispro 10 UNIT in Syringe 0 ML 6 UNIT IV (06:45)
[2025-06-02] MEDS: Calcium Gluconate IV 3 GM in Syringe 1 EACH IV (06:46)
[2025-06-02] MEDS: Sodium Bicarbonate 8.4% 50 ML Syringe 50 MEQ IV (06:50)
--- NOTE | 2025-06-02 07:21 | PCM.HP.STD ---
HPI - General General Date of Admission: 06/02/25 Date of Service: 06/02/25 Chief Complaint: Shortness of breath HPI Narrative SANDY ELLIS, is a 64 F who presented to the emergency department at [facility] early on the morning of 06/02/2025 with a chief complaint of shortness of breath. Patient is chronic hypoxic respiratory failure and on chronic oxygen at 3 L nasal cannula. Her saturations were stable but she seemed to be more tachypneic and having increased confusion. Storms through the night because her electricity go off and her was concerned that maybe she was having some respiratory issues related to her breathing problems. We also discovered that she had not been wearing her insulin pump initially it was thought that she did not have the right supplies but that does not seem to be the case. The states they have all the supplies needed at home but they did not hook her up when she left because she was little bit tired and seemed a little confused from the medication so we did not put her on a pump as ordered at discharge from the hospital. On further questioning, we discovered that she asked the pump to be taken off on Friday and it does not seem like she may have had insulin since that point in time. There did not appear to be any physician notification of pump removal and patient was not getting insulin from what I can tell. She was to go to the OR on Friday for tunneled dialysis catheter placement however this did not end up happening because her fistula was working enough to run dialysis. A fistulogram was done on 06/01/2021 and the patient was run on dialysis without any difficulties and therefore was sent home on the same day. VS on presentation 94.7, HR 60, RR 25, 103/34, 93% on 3 L nasal cannula. CBC shows stable anemia. Chem panel is marked abn with Na 132, K was 6.1, HCO3 was 11.6, AG was 28, renal function was stable, glucose was 255, A1c 5.9. ABG showed a pH of 7.06/pCO2 56.7/PaO2 was 78/bicarb was 16.1. Chest x-ray showed persistent right and mid lower lobe airspace disease that appears to be chronic. Symptoms are no different than previously per . DKA was diagnosed by the emergency department she was placed on an insulin drip and given IV fluids and made NPO. She will be admitted to the intensive care unit. [facility] Medical History Chronic hypoxic respiratory failure On home oxygen therapy Wears hearing aid Wears glasses Post-menopausal Insulin dependent diabetes mellitus Diabetes History of renal dialysis History of renal disease Anemia High cholesterol Easy bruising Excessive bleeding Injury of head and neck Former smoker Emphysema, unspecified History of edema History of echocardiogram History of stress test Cardiology follow-up encounter Osteoporosis Presence of insulin pump Severely underweight adult Lung nodule, multiple Nicotine abuse Lung nodule, solitary Fissure in skin of foot Adrian's sign present Tobacco abuse CKD (chronic kidney disease) stage 4, GFR 15-29 ml/min Body mass index (BMI) less than 16.5 Underweight Polyneuropathy due to type 1 diabetes mellitus Stage 4 chronic kidney disease due to type 1 diabetes mellitus Respiratory failure with hypoxia Smoking greater than 30 pack years Anemia Diabetic nephropathy, type I Hyperkalemia Renal insufficiency Diabetes Chronic obstructive pulmonary disease Essential (primary) hypertension Hypersomnia Anxiety Depression Atherosclerosis of coronary artery of [place] heart without angina pectoris NSTEMI (non-ST elevated myocardial infarction) (01/12/18) DM type 1 (diabetes mellitus, type 1) Hyperlipidemia COPD (chronic obstructive pulmonary disease) Home Medications ?Medication ?Instructions ?Recorded ?Last Taken ?Type simvastatin 40 mg tablet 40 mg PO QHS cholesterol 06/21/18 01/03/25 History albuterol sulfate 2.5 mg/3 mL 2.5 mg (3 mL) inhalation Q2H PRN 06/23/18 Unknown Rx (0.083 %) solution for nebulization PRN dyspnea, wheezing ##1 aspirin 81 mg tablet,delayed 81 mg PO DAILY heart health 12/31/19 01/03/25 History release oxygen See Rx Instructions NASAL .COMPLEX 12/03/23 01/04/25 History O2 therapy ipratropium 0.5 mg-albuterol 3 mg 3 ml inhalation Q4H PRN PRN SOB 12/29/23 Unknown Rx (2.5 mg base)/3 mL nebulization &/OR WHEEZING #180 mL soln denosumab 60 mg/mL subcutaneous 60 mg subcut [id number] bone health 06/10/24 07/09/24 Rx syringe (Prolia) #1 mL clopidogrel 75 mg tablet 75 mg PO DAILY anti platelet #90 07/26/24 01/03/25 Rx tabs nitroglycerin 0.4 mg sublingual 0.4 mg sublingual Q5-15M PRN chest 10/21/24 Unknown Rx tablet pain #25 tabs metoprolol tartrate 50 mg tablet 50 mg PO BID blood pressure #180 11/11/24 01/03/25 Rx tabs amlodipine 10 mg tablet (Norvasc) 10 mg PO DAILY blood pressure 30 11/20/24 01/03/25 Rx days #30 tabs buspirone 7.5 mg tablet 7.5 mg PO DAILY Antianxiety 12/14/24 01/03/25 History sevelamer carbonate 800 mg tablet 800 mg PO TID PRN To lower 12/14/24 01/03/25 History Phosphorus blood-glucose sensor (FreeStyle #6 ea 02/09/25 Unknown Rx Eileen 2 Plus Sensor device) insulin pump cart,auto,BT,G6/L #30 ea 02/09/25 Unknown Rx (Omnipod 5 (G6/Eileen 2 Plus) subcutaneous cartridge) albuterol sulfate 90 mcg/actuation 2 puff inhalation Q6H PRN PRN 03/14/25 Unknown Rx aerosol inhaler Cough #8.5 grams blood-glucose sensor (Dexcom G6 #3 ea 04/07/25 Unknown Rx Sensor device) blood-glucose transmitter (Dexcom #1 ea 04/07/25 Unknown Rx G6 Transmitter device) insulin lispro 100 unit/mL 60 unit (0.6 mL) continuous 04/07/25 Unknown Rx subcutaneous solution (Humalog subcutaneous infusion .continuous U-100 Insulin) #54 mL ondansetron 4 mg disintegrating 4 mg PO Q8H PRN PRN Nausea #10 tabs 05/08/25 Unknown Rx tablet roflumilast 500 mcg tablet 500 mcg PO DAILY breathing #30 tabs 05/11/25 Unknown Rx (Daliresp) fluticasone fur. 200 mcg-umeclid 1 inh inhalation DAILY breathing 05/18/25 Unknown Rx 62.5 mcg-vilant 25 mcg #3 ea inhalat.powder (Trelegy Ellipta) calcitriol 0.5 mcg capsule 0.5 mcg PO DAILY supplement 05/31/25 Unknown History potassium chloride 20 mEq 20 meq PO BID potassium 05/31/25 Unknown History tablet,extended release(part/cryst) pseudoephedrine-guaifenesin ER 60 1 tab PO BID PRN cold symptoms 06/02/25 Unknown History mg-600 mg tablet,extend release 12hr (Mucinex D) Allergy/AdvReac Type Severity Reaction Status Date / Time No Known Allergies Allergy Verified 05/27/25 19:11 Family History Mother Heart disease COPD (chronic obstructive pulmonary disease) Lupus Daughter Growth disorder Down syndrome Fibromyalgia Grandfather Colon cancer Diabetes Grandmother Heart disease CVA (cerebral vascular accident) Diabetes Pulmonary disease Sister Hypertension Kidney disease Surgical History Hx of surgical procedure History of cardiac catheterization History of coronary artery stent placement Hx of surgical procedure H/O: Hx of appendectomy H/O: hysterectomy History of coronary artery stent placement (02/04/18) Social History household members: spouse housing: house pets and animals: Yes pets and animals: cat(s) Smoking Status: Former smoker how long ago did patient quit smoking: Since 05/2024 cut back and has only had ~ 10 cigarettes since then. quit status: considering quitting alcohol intake: never substance use type: does not use caffeine: Yes Type: carbonated beverages Number of servings: 4 what type of physical activity do you participate in: none seatbelt use: always do you feel safe at home: Yes ROS Review of Systems ROS Unobtainable: other Details: Confusion Vital Signs Vital Signs Vital Signs: 06/02/25 04:21 06/02/25 04:45 06/02/25 04:47 Temperature 94.7 F L Temperature Source Axillary Pulse Rate 60 58 L 57 L Respiratory Rate 25 H 24 H 24 H Respiratory Effort Blood Pressure 103/34 L Blood Pressure Mean 57 Pulse Ox 93 100 100 Oxygen Delivery Method Room Air Oxygen Flow Rate (L/min) Fraction of Inspired Oxygen (FIO2) 40 06/02/25 04:52 06/02/25 05:00 06/02/25 05:10 Temperature Temperature Source Pulse Rate 55 L Respiratory Rate 17 Respiratory Effort Short of Breath Blood Pressure 103/45 L Blood Pressure Mean 63 Pulse Ox Oxygen Delivery Method Bi-pap Oxygen Flow Rate (L/min) 40 Fraction of Inspired Oxygen (FIO2) 35 06/02/25 05:15 06/02/25 05:30 06/02/25 05:30 Temperature Temperature Source Pulse Rate 55 L 58 L Respiratory Rate 21 H 20 H Respiratory Effort Blood Pressure 98/37 L 68/56 L Blood Pressure Mean 55 62 Pulse Ox 90 Oxygen Delivery Method Oxygen Flow Rate (L/min) Fraction of Inspired Oxygen (FIO2) 06/02/25 05:38 06/02/25 05:45 06/02/25 06:00 Temperature Temperature Source Pulse Rate 53 L 54 L Respiratory Rate 18 18 Respiratory Effort Blood Pressure 97/37 L 95/41 L 99/35 L Blood Pressure Mean 55 57 55 Pulse Ox Oxygen Delivery Method Oxygen Flow Rate (L/min) Fraction of Inspired Oxygen (FIO2) 06/02/25 06:15 06/02/25 06:30 06/02/25 06:40 Temperature Temperature Source Pulse Rate 54 L 72 55 L Respiratory Rate 16 17 21 H Respiratory Effort Blood Pressure 101/32 L 98/39 L 94/39 L Blood Pressure Mean 53 56 55 Pulse Ox Oxygen Delivery Method Oxygen Flow Rate (L/min) Fraction of Inspired Oxygen (FIO2) 06/02/25 06:45 Temperature Temperature Source Pulse Rate 55 L Respiratory Rate 20 H Respiratory Effort Blood Pressure 98/38 L Blood Pressure Mean 55 Pulse Ox Oxygen Delivery Method Oxygen Flow Rate (L/min) Fraction of Inspired Oxygen (FIO2) Weight Weight: 46.8 kg Body Mass Index (BMI) 17.6 Physical Exam Const no apparent distress; Negative for alert, oriented x3, average body habitus, healthy appearing or well nourished Constitutional Narrative: Very somnolent, upper middle-aged, white female who appears much older than stated age, lying in bed, awakens but easily falls back asleep Orientation / Consciousness: confused, disoriented and lethargic HEENT normocephalic, head/scalp atraumatic and hearing grossly normal bilaterally HEENT Narrative: Mucous membranes are significantly dry, Mallampati is 1, dentition is poor, no thrush, temporal wasting Eyes PERRL; Negative for conjunctivae normal Eyes Narrative: Conjunctiva are mildly pale bilaterally, no scleral icterus Neck supple Neck Narrative: Neck veins are flat, trachea is midline Resp no retractions and no use of accessory muscles Resp Narrative: Tachypnea, few scattered end expiratory wheezes, no signs of extremis Cardio regular rate, regular rhythm, S1 normal heart sound, S2 normal heart sound, no murmurs, no rub, no gallops and no clicks GI normal to inspection, nondistended, normoactive bowel sounds, soft to palpation and non-tender GI Narrative: Scaphoid abdomen Extremity no clubbing, cyanosis or edema Extremity Narrative: Marked decreased lean muscle mass Skin Skin Narrative: Skin is thin Neuro No oriented x3 Neuro Narrative: Spontaneously moves all extremities Speech: Negative for speech normal Psych Psych Narrative: Very flat and minimally interactive at this time Results Lab / Micro Data 06/02/25 04:45 06/02/25 17:51 Labs: Laboratory Results - last 24 hr 06/02/25 04:45: WBC 7.3, RBC 2.95 L, Hgb 8.4 L, Hct 29.2 L, MCV 99.0 D, MCH 28.5, MCHC 28.8 L, RDW Std Deviation 53.7 H, RDW Coeff of Iron 15.4 H, Plt Count 237, MPV 9.9, Immature Gran % (Auto) 0.500, Neut % (Auto) 84.7 H, Lymph % (Auto) 6.0 L, [place] % (Auto) 8.0, Eos % (Auto) 0.7, Baso % (Auto) 0.1, Absolute Neuts (auto) 6.2, Absolute Lymphs (auto) 0.44 L, Nucleated RBC % 0.5, Sodium 132 L, Potassium 6.1 H*, Chloride 93 L, Carbon Dioxide 11.6 L, Anion Gap 28 H, BUN 59 H, Creatinine 3.92 H, Estim Creat Clear Calc 10.57 L, Est GFR (MDRD) Non-Af 12 L, BUN/Creatinine Ratio 14.9, Glucose 366 H, Calcium 8.3 06/02/25 05:35: POC Glucose 366 H 06/02/25 05:40: Potassium 6.2 H*, b-Hydroxybutyric mmol/L 8.3 H ABG Data ABG results: ABG 06/02/25 04:55 Specimen Type ROHIT Sample Site Not entered O2 % 40.0 VBG pH 7.07 L* VBG pO2 102 H VBG HCO3 14 L VBG Total CO2 15 L VBG O2 Sat (Calc) 95 H VBG Base Excess -16 L POC Mix VBG pCO2 Pt Tmp 47.5 O2 Delivery Device BiPAP Crit Call To/Read Back Yes Blood Gas Notified Whom Thor Blood Gas Notified Time 04:56:57 Clinical Comments bipap 14. 6. 40% Imaging Radiology Impression Chest X-Ray 06/02/25 05:25 IMPRESSION: Suspect right lung base pneumonia, no interval change. Reading Location: [place] [address] Assessment & Plan Assessment/Plan (1) Acute hyperkalemia: (2) DKA, type 1: (3) Severe malnutrition: (4) Toxic metabolic encephalopathy: PLAN: Plan DKA - There is some confusion on when she last had her insulin pump on reports it was Friday but there is no documentation that it was removed and no discussion with the attending physician - Insulin drip - DKA protocol with serial BMPs/mag/Phos - Once gap is closed x 2 will check beta hydroxybutyrate - Replace insulin pump after DKA is resolved Anion gap metabolic acidosis - Secondary to the above - Monitor per DKA protocol Toxic/metabolic encephalopathy - Secondary to severe acidosis - Treatment as noted above - Should resolve his DKA resolves Hyperkalemia - Secondary to severe acidosis - Should resolve his acidosis corrects - No need for emergent dialysis Malfunctioning dialysis access - Resolved with fistulogram done on 06/01/2025 Chronic hypoxic and hypercapnic respiratory failure/COPD -Avoid any sedating medications - Continue home inhalers - Patient is on 2 to 3 L at baseline chronically and currently on 2 L with oxygen saturations at 99% - Baseline CO2 is elevated - Blood cultures are pending Cachexia/severe malnutrition - Dietitian is following - Patient is underweight with a BMI of 16.3 - Continue supplements - Dietitian is following CAD/essential hypertension/hyperlipidemia - Continue aspirin and Plavix - continue home statin - Hold metoprolol and amlodipine ESRD - 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 - HD per nephrology -Patient does home dialysis at baseline - Nephrology consult Chronic anemia secondary to renal disease - Hemoglobin remains stable DM-1 - Restart insulin pump when out of DKA - Continue outpatient follow-up after discharge with endocrinology DVT prophylaxis - Continue subcu heparin twice daily CODE STATUS - Full code Charges/Coding Visit Charges Inpatient E&M: 72682 Init Hosp L3
--- NOTE | 2025-06-02 07:31 | CPS ---
Pt will not keep BIPAP mask on at this time. This RT took pt off bipap and placed on NC at this time. RN aware.
[2025-06-02 07:49] LABS: Base Excess -14 mmol/L (-2 to +2); FI02 3.0; PO2 78 mmHG (75-100); SITE L Brach; SO2 88 % (95-99); Time Given 07:47:39
[2025-06-02] MEDS: Insulin Lispro 100 UNIT in 0.9% Normal Saline (100mL Bag) 99 ML CONT INF ×2 (07:55→11:00)
[2025-06-02] MEDS: Aspirin E.C. 81 MG Tablet PO (09:19)
[2025-06-02] MEDS: Heparin Injection (Vial) 5,000 UNIT/ML VIAL 5000 UNIT SC ×2 (09:21→22:21)
--- NOTE | 2025-06-02 10:14 | PCM.CONS.R ---
Assessment & Plan Assessment/Plan (1) End-stage renal disease on hemodialysis: PLAN: dialysis today and tomorrow, home hemodialysis 4x/week (2) Acute hyperkalemia: PLAN: urgent dialysis (3) Chronic hypoxemic respiratory failure: (4) Anemia: PLAN: retacrit (5) Hypercarbia: (6) DKA, type 1: HPI Consult Data Date of Consult: 06/02/25 HPI Narrative Reason for Consultation: ESRD HPI Narrative: SANDY ELLIS, is a 64 F with ESRD due to DMtype 1 on home hemodialysis. Discharged yesterday after fistulogram with angioplasty for malfunctioning fistula, readmitted for hypoxia, DKA with hyperkalemia potassium 6.2 sugar 366, bicarbonate 11.6. Lost power at home and BIPAP machine stopped working. Currently started dialysis with discomfort with venous needle. Needle replacement successful and resumed dialysis. Pain resolved. Hgb low at 8.4g. Vitals stable. [facility] Medical History Chronic hypoxic respiratory failure On home oxygen therapy Wears hearing aid Wears glasses Post-menopausal Insulin dependent diabetes mellitus Diabetes History of renal dialysis History of renal disease Anemia High cholesterol Easy bruising Excessive bleeding Injury of head and neck Former smoker Emphysema, unspecified History of edema History of echocardiogram History of stress test Cardiology follow-up encounter Osteoporosis Presence of insulin pump Severely underweight adult Lung nodule, multiple Nicotine abuse Lung nodule, solitary Fissure in skin of foot [place]'s sign present Tobacco abuse CKD (chronic kidney disease) stage 4, GFR 15-29 ml/min Body mass index (BMI) less than 16.5 Underweight Polyneuropathy due to type 1 diabetes mellitus Stage 4 chronic kidney disease due to type 1 diabetes mellitus Respiratory failure with hypoxia Smoking greater than 30 pack years Anemia Diabetic nephropathy, type I Hyperkalemia Renal insufficiency Diabetes Chronic obstructive pulmonary disease Essential (primary) hypertension Hypersomnia Anxiety Depression Atherosclerosis of coronary artery of [place] heart without angina pectoris NSTEMI (non-ST elevated myocardial infarction) (01/12/18) DM type 1 (diabetes mellitus, type 1) Hyperlipidemia COPD (chronic obstructive pulmonary disease) Home Medications ?Medication ?Instructions ?Recorded ?Last Taken ?Type simvastatin 40 mg tablet 40 mg PO QHS cholesterol 06/21/18 01/03/25 History albuterol sulfate 2.5 mg/3 mL 2.5 mg (3 mL) inhalation Q2H PRN 06/23/18 Unknown Rx (0.083 %) solution for nebulization PRN dyspnea, wheezing ##1 aspirin 81 mg tablet,delayed 81 mg PO DAILY heart health 12/31/19 01/03/25 History release oxygen See Rx Instructions NASAL .COMPLEX 12/03/23 01/04/25 History O2 therapy ipratropium 0.5 mg-albuterol 3 mg 3 ml inhalation Q4H PRN PRN SOB 12/29/23 Unknown Rx (2.5 mg base)/3 mL nebulization &/OR WHEEZING #180 mL soln denosumab 60 mg/mL subcutaneous 60 mg subcut [id number] bone health 06/10/24 07/09/24 Rx syringe (Prolia) #1 mL clopidogrel 75 mg tablet 75 mg PO DAILY anti platelet #90 07/26/24 01/03/25 Rx tabs nitroglycerin 0.4 mg sublingual 0.4 mg sublingual Q5-15M PRN chest 10/21/24 Unknown Rx tablet pain #25 tabs metoprolol tartrate 50 mg tablet 50 mg PO BID blood pressure #180 11/11/24 01/03/25 Rx tabs amlodipine 10 mg tablet (Norvasc) 10 mg PO DAILY blood pressure 30 11/20/24 01/03/25 Rx days #30 tabs buspirone 7.5 mg tablet 7.5 mg PO DAILY Antianxiety 12/14/24 01/03/25 History sevelamer carbonate 800 mg tablet 800 mg PO TID PRN To lower 12/14/24 01/03/25 History Phosphorus blood-glucose sensor (FreeStyle #6 ea 02/09/25 Unknown Rx Eileen 2 Plus Sensor device) insulin pump cart,auto,BT,G6/L #30 ea 02/09/25 Unknown Rx (Omnipod 5 (G6/Eileen 2 Plus) subcutaneous cartridge) albuterol sulfate 90 mcg/actuation 2 puff inhalation Q6H PRN PRN 03/14/25 Unknown Rx aerosol inhaler Cough #8.5 grams blood-glucose sensor (Dexcom G6 #3 ea 04/07/25 Unknown Rx Sensor device) blood-glucose transmitter (Dexcom #1 ea 04/07/25 Unknown Rx G6 Transmitter device) insulin lispro 100 unit/mL 60 unit (0.6 mL) continuous 04/07/25 Unknown Rx subcutaneous solution (Humalog subcutaneous infusion .continuous U-100 Insulin) #54 mL ondansetron 4 mg disintegrating 4 mg PO Q8H PRN PRN Nausea #10 tabs 05/08/25 Unknown Rx tablet roflumilast 500 mcg tablet 500 mcg PO DAILY breathing #30 tabs 05/11/25 Unknown Rx (Daliresp) fluticasone fur. 200 mcg-umeclid 1 inh inhalation DAILY breathing 05/18/25 Unknown Rx 62.5 mcg-vilant 25 mcg #3 ea inhalat.powder (Trelegy Ellipta) calcitriol 0.5 mcg capsule 0.5 mcg PO DAILY supplement 05/31/25 Unknown History potassium chloride 20 mEq 20 meq PO BID potassium 05/31/25 Unknown History tablet,extended release(part/cryst) pseudoephedrine-guaifenesin ER 60 1 tab PO BID PRN cold symptoms 06/02/25 Unknown History mg-600 mg tablet,extend release 12hr (Mucinex D) Allergy/AdvReac Type Severity Reaction Status Date / Time No Known Allergies Allergy Verified 05/27/25 19:11 Family History Mother Heart disease COPD (chronic obstructive pulmonary disease) Lupus Daughter Growth disorder Down syndrome Fibromyalgia Grandfather Colon cancer Diabetes Grandmother Heart disease CVA (cerebral vascular accident) Diabetes Pulmonary disease Sister Hypertension Kidney disease Surgical History Hx of surgical procedure History of cardiac catheterization History of coronary artery stent placement Hx of surgical procedure H/O: Hx of appendectomy H/O: hysterectomy History of coronary artery stent placement (02/04/18) Social History household members: spouse housing: house pets and animals: Yes pets and animals: cat(s) Smoking Status: Former smoker how long ago did patient quit smoking: Since 05/2024 cut back and has only had ~ 10 cigarettes since then. quit status: considering quitting alcohol intake: never substance use type: does not use caffeine: Yes Type: carbonated beverages Number of servings: 4 what type of physical activity do you participate in: none seatbelt use: always do you feel safe at home: Yes ROS Constitutional Constitutional: Reports weakness; Denies chills or fever(s) Cardiovascular Cardiovascular: Denies chest pain or edema Respiratory/Chest Respiratory/Chest: Reports portable oxygen @ home, shortness of breath at rest and wheezing Gastrointestinal Gastrointestinal: Denies abdominal pain, diarrhea, nausea or vomiting Neurologic Neurologic: Reports weakness Psychiatric Psychiatric: Reports anxiety Hematologic/Lymphatic Hematologic/Lymphatic: Reports anemia Physical Exam Const alert and oriented x3 General Appearance: frail Nutritional Appearance: thin Resp Auscultation: wheezes and diminished lung sounds Cardio regular rate GI non-tender and non-distended Auscultation: normoactive bowel sounds Palpation: soft Extremity General Extremity: AV fistula Neuro Sensorium / Orientation: awake and alert Psych cooperative Lab / Micro Data 06/02/25 04:45 06/02/25 05:40 Labs: Laboratory Results - last 24 hr 06/02/25 04:45: WBC 7.3, RBC 2.95 L, Hgb 8.4 L, Hct 29.2 L, MCV 99.0 D, MCH 28.5, MCHC 28.8 L, RDW Std Deviation 53.7 H, RDW Coeff of Iron 15.4 H, Plt Count 237, MPV 9.9, Immature Gran % (Auto) 0.500, Neut % (Auto) 84.7 H, Lymph % (Auto) 6.0 L, [place] % (Auto) 8.0, Eos % (Auto) 0.7, Baso % (Auto) 0.1, Absolute Neuts (auto) 6.2, Absolute Lymphs (auto) 0.44 L, Nucleated RBC % 0.5, Sodium 132 L, Potassium 6.1 H*, Chloride 93 L, Carbon Dioxide 11.6 L, Anion Gap 28 H, BUN 59 H, Creatinine 3.92 H, Estim Creat Clear Calc 10.57 L, Est GFR (MDRD) Non-Af 12 L, BUN/Creatinine Ratio 14.9, Glucose 366 H, Calcium 8.3 06/02/25 05:35: POC Glucose 366 H 06/02/25 05:40: Potassium 6.2 H*, b-Hydroxybutyric mmol/L 8.3 H 06/02/25 06:42: Lactic Acid 1.3 06/02/25 08:02: POC Glucose 339 H 06/02/25 09:09: POC Glucose 324 H ABG Data ABG results: ABG 06/02/25 06/02/25 04:55 07:46 Specimen Type ROHIT ART Sample Site Not entered L Brach pH 7.06 L* Bicarbonate Actual 16.1 L Total CO2 18 Base Excess -14 L O2 Saturation 88 L O2 % 40.0 3.0 ABG pCO2 56.7 H ABG pO2 78 VBG pH 7.07 L* VBG pO2 102 H VBG HCO3 14 L VBG Total CO2 15 L VBG O2 Sat (Calc) 95 H VBG Base Excess -16 L POC Mix VBG pCO2 Pt Tmp 47.5 O2 Delivery Device BiPAP Cannula Vent Mode Not entered Crit Call To/Read Back Yes Yes Blood Gas Notified Whom Thor fontenot Blood Gas Notified Time 04:56:57 07:47:39 Clinical Comments bipap 14. 6. 40% Rhythm Strip Rhythm Strip: Sinus Rhythm Rate: 55 Ectopy: None Imaging Radiology Impression Chest X-Ray 06/02/25 05:25 IMPRESSION: Suspect right lung base pneumonia, no interval change. Reading Location: [place] [address]
[2025-06-02] MEDS: Albuterol 2.5 MG/3 ML VIAL.NEB. INHALATION (10:41)
[2025-06-02 11:05] LABS: Anion Gap 20 (5-15); BUN 56 mg/dL (4-19); BUN/Creat Ratio 15.9 RATIO (10-20); Calcium,Total 8.6 mg/dL (7.6-11.0); Carbon Dioxide 17.7 mmol/L (21.0-32.0); Chloride 97 mmol/L (98-108); Estimated Creatinine Clearance 11.65 ml/min (50-250); Glucose 285 mg/dL (70-99); Magnesium 2.3 mg/dL (1.5-2.2); Potassium 4.3 mmol/L (3.3-5.1)
[2025-06-02] MEDS: PureFlow B 2K Dialysis Soln 1 BAG 6 BAG PF (11:27)
[2025-06-02] MEDS: 0.9% Normal Saline 1,000 ML IV.SOLN. 1000 ML OPERA.SITE (11:27)
[2025-06-02] MEDS: Epoetin Alfa epbx 10,000 UNIT/ML 6000 UNIT IV (11:28)
[2025-06-02] MEDS: Dext 5%-0.45% NS 1,000 ML 150 ML IV ×2 (13:23→20:24)
--- NOTE | 2025-06-02 14:17 | CHAPLAIN ---
Type of Pastoral Visit _x__ Initial Visit ___ Follow-up Visit ___ On-call Visit ___ General Patient Visit ___ Spiritual Assessment ___ Family Conference ___ Bereavement ___ Rapid Response ___ Code Blue ___ Other (describe below) Pastoral Care Referral From _x__ Patient ___ Family ___ Nurse ___ Physician ___ Acute Dialysis Registered Nurse ___ Headmaster/Mistress ___ Other (describe below) Sacrament/Intervention ___ Active listening ___ Anointing ___ Mormonism ___ Bereavement ___ Communion ___ Nora exploration ___ ___ Life review ___ Prayer ___ Reconciliation ___ Sacrament of Sick _x__ Supportive presence ___ Wedding ___ Other (describe below) Pastoral Comments patient is receiving dialysis but is awake and alert; spouse is at the bedside; offer of support and listening presence or prayer; pt denies having needs and says that she is fine although appears to be quite weak and somewhat slow to answer questions; spouse says that he has said prayers for the patient and also denies further needs
--- NOTE | 2025-06-02 14:49 | CASEMGMT ---
Addendum entered by Myriam Deng 06/03/25 11:54: See Dr. Huerta's finished and signed H&P for further details regarding the pt's insulin pump and use during the index admission. Original Note: BO NICHOLSON Readmission Chart Review Initial: 05/28/25-06/01/25. Dx: CHF Exacerbation Current: 06/02/25. Dx: DKA This patient was discharged home yesterday with the support of her . The patient completes at-home dialysis every Friday, Friday, , and Friday. The patient was dialyzed here before discharge. The patient wears home oxygen through [employer] at 3L continuous and NIV at HS and with naps. The patient was not prescribed any new medications. The patient is also diabetic (Type 1). The patient returned to [facility] ER on 06/02 with confusion and concern for low oxygen and was subsequently admitted to the ICU in DKA. BO NICHOLSON to the patient's room at this time. The patient recently finished getting hemodialysis. The patient is currently drowsy, hard of hearing, and disoriented. The patient's is at the bedside and willing to review readmission. The patient?s states that he helps care for the patient at home. The patient's states that their power went out last night and that the patient was not getting any oxygen during that time. The patient's also states that he did not put the insulin pump back onto the patient once the patient got home. Patient's states that the patient was not eating or feeling well and that the patient?s blood sugar levels were within normal limits, and the insulin pump ?was not needed then.? Patient's states multiple times that they have all of the necessary supplies to help care for the patient?s diabetes. Patient's also states that [facility] provides them with a sufficient amount of dialysis supplies needed for care. Patient's states that the patient was able to take her prescriptions last night. The patient was unable to follow up with the PCP, vacation planner, or vascular doctor due to the rapid readmission. Moving forward, the patient?s anticipates that the patient will be able to return home once medically stable. PT/OT are consulted. To follow. Nephrology consulted. Case management to follow up for any further discharge needs. Patient denies any further questions or concerns at this time. Tentative plan: Home with 's support, continue hemodialysis (at home) Friday, Friday, , & Friday, continual oxygen through , and appropriate care regarding the patient?s diabetes.
[2025-06-02 16:05] LABS: Magnesium 2.0 mg/dL (1.5-2.2)
[2025-06-02 16:06] LABS: Anion Gap 15 (5-15); Carbon Dioxide 20.2 mmol/L (21.0-32.0); Chloride 99 mmol/L (98-108); Potassium 4.5 mmol/L (3.3-5.1)
[2025-06-02 18:40] LABS: Anion Gap 11 (5-15); Carbon Dioxide 24.1 mmol/L (21.0-32.0); Chloride 100 mmol/L (98-108); Magnesium 1.9 mg/dL (1.5-2.2); Potassium 4.0 mmol/L (3.3-5.1)
[2025-06-02 19:56] LABS: BETA-HYDROXYBUTYRATE 1.2 mmol/L (0.0-0.3)
[2025-06-03] VITALS (43 sets, daily range): BP systolic 131–176; BP diastolic 45–76; PULSE 59–80; RESP 12–26; TEMP 36.3–36.8; O2SAT 98–100; BMI 18.3; BMI 17.4
[2025-06-03] MEDS: Dext 5%-0.45% NS 1,000 ML 150 ML IV ×2 (03:31→10:42)
[2025-06-03 04:35] LABS: Hematocrit 27.0 % (37-47); Hemoglobin 8.5 g/dL (12.0-15.0); Immature Granulocytes Count 0.040 X10^3/uL (0.0-0.0); Mean Corp Hgb Conc 31.5 g/dL (32-36); Mean Corpuscular Volume 90.0 fL (81-99); Mean Platelet Vol. 9.7 fl (6.2-12.0); NRBC Flagged by Analyzer 0.4 % (0-5); Platelet Count 192 K/mm3 (150-450); RBC Distribution Width CV 15.8 % (11.6-14.6); RBC Distribution Width SD 47.9 fl (35.1-43.9); Red Blood Count 3.00 M/mm3 (4.2-5.4); White Blood Count 7.0 K/mm3 (4.4-11.0)
[2025-06-03 05:00] LABS: AST(SGOT) 31 U/L (<=31); Alanine Aminotransfer ALT/SGPT 14 U/L (<=34); Albumin, Serum 3.1 g/dL (3.4-4.8); Alkaline Phosphatase 73 U/L (35-104); Anion Gap 9 (5-15); BUN 35 mg/dL (4-19); BUN/Creat Ratio 11.9 RATIO (10-20); Calcium,Total 8.1 mg/dL (7.6-11.0); Carbon Dioxide 25.1 mmol/L (21.0-32.0); Chloride 100 mmol/L (98-108); Estimated Creatinine Clearance 13.36 ml/min (50-250); Globulin 2.0 g/dL (2.2-4.2); Glucose 138 mg/dL (70-99); Magnesium 1.9 mg/dL (1.5-2.2); Potassium 3.5 mmol/L (3.3-5.1)
[2025-06-03 06:37] LABS: BETA-HYDROXYBUTYRATE 0.0 mmol/L (0.0-0.3)
--- NOTE | 2025-06-03 07:13 | PN.HOSP_ITS ---
Reason for Visit Chief Complaint: Shortness of breath Subjective Subjective No issues overnight. Still some mild confusion this morning. Currently on BiPAP will continue through dialysis. Plan is for dialysis today instead of tomorrow to help now. Anticipate discharge home as long as mental status improves and blood sugars remained stable. DKA has resolved with normal weight hydroxybutyrate plan on transitioning off the insulin drip once she is off Objective Data Objective Data Vital Signs: Vital Signs Temp Pulse Resp BP Pulse Ox O2 Del Method O2 Flow Rate 97.4 F L 75 22 H 171/66 H 100 Nasal Cannula 2 06/03/25 04:00 06/03/25 07:00 06/03/25 07:00 06/03/25 07:00 06/03/25 07:00 06/03/25 07:00 06/03/25 07:00 FiO2 35 06/03/25 06:25 Oxygen Flow Rate (L/min) 2 Oxygen Delivery Method Nasal Cannula Weight: 47 kg Body Mass Index (BMI) 18.3 Intake & Output: Intake and Output for Last 24 Hours 06/01/25 06/02/25 06/03/25 23:59 23:59 23:59 Intake Total 1055.88 / 1058.98 1022.64 / 1022.64 Output Total 1070 / 1070 0 / 0 Balance -14.12 / -11.02 1022.64 / 1022.64 Medical Nutrition Assessment Dietitian: Malnutrition Criteria Met Start: 06/02/25 10:20 Freq: Status: Active Protocol: Document 06/02/25 10:20 RMA (Rec: 06/02/25 10:20 RMA [id number]) Nutrition Malnutrition Evidence of Yes Malnutrition Exists Malnutrition (severe Chronic ): Evidenced By Suboptimal Energy Intake (Severe),Weight Loss (Severe), Physical Changes (Severe) Clinical Problem Chronic Disease or Condition Related Malnutrition Etiology severe protein-calorie malnutrition in the context of chronic disease and debility related to inadequate oral /energy intake and increased energy expenditure/COPD Signs/Symptoms as evidenced by currently NPO, BMI 17.9, approximately 8-10% unintentional weight loss x past 6-12 months, inadequate oral intake meeting less than 75% estimated nutrition needs x 12 months and obvious physical signs of muscle wasting and fat depletion in the clavicle, orbital, temporal region, arms and legs. Status Active Problem Recommendation Dietitian Recommend advance diet to Carbohydrate- Controlled/Renal Recommendations/ General. Changes Liberalize diet as needed as PO adequacy established with meals. Consider TRAVERSE ROD ASSEMBLER consult to evaluate swallowing ability; texture/consistency as per TRAVERSE ROD ASSEMBLER. PO Nepro as pt willing; has refused in the past. Diet education as pt agreeable. Lab / Micro Data 06/03/25 04:15 06/03/25 04:15 Labs: Laboratory Results - last 24 hr 06/02/25 06:42: Lactic Acid 1.3 06/02/25 08:02: POC Glucose 339 H 06/02/25 09:09: POC Glucose 324 H 06/02/25 10:03: POC Glucose 294 H 06/02/25 10:24: Sodium 135, Potassium 4.3, Chloride 97 L, Carbon Dioxide 17.7 L, Anion Gap 20 H, BUN 56 H, Creatinine 3.48 H, Estim Creat Clear Calc 11.65 L, Est GFR (MDRD) Non-Af 14 L, BUN/Creatinine Ratio 15.9, Glucose 285 H, Calcium 8.6, P hosphorus 6.7 H, Magnesium 2.3 H 06/02/25 11:02: POC Glucose 255 H 06/02/25 12:09: POC Glucose 224 H 06/02/25 13:16: POC Glucose 186 H 06/02/25 14:02: POC Glucose 186 H 06/02/25 14:41: Sodium 134, Potassium 4.5, Chloride 99, Carbon Dioxide 20.2 L, Anion Gap 15, Phosphorus 3.9, Magnesium 2.0 06/02/25 15:03: POC Glucose 176 H 06/02/25 16:01: POC Glucose 208 H 06/02/25 17:01: POC Glucose 199 H 06/02/25 17:51: Sodium 135, Potassium 4.0, Chloride 100, Carbon Dioxide 24.1, Anion Gap 11, Phosphorus 3.3, Magnesium 1.9, b-Hydroxybutyric mmol/L 1.2 H 06/02/25 18:01: POC Glucose 217 H 06/02/25 20:05: POC Glucose 230 H 06/02/25 21:09: POC Glucose 227 H 06/02/25 22:02: POC Glucose 212 H 06/02/25 23:13: POC Glucose 214 H 06/03/25 00:09: POC Glucose 193 H 06/03/25 01:01: POC Glucose 172 H 06/03/25 02:12: POC Glucose 166 H 06/03/25 03:08: POC Glucose 162 H 06/03/25 04:07: POC Glucose 126 H 06/03/25 04:15: WBC 7.0, RBC 3.00 L, Hgb 8.5 L, Hct 27.0 L, MCV 90.0 D, MCH 28.3, MCHC 31.5 L D, RDW Std Deviation 47.9 H, RDW Coeff of Iron 15.8 H, Plt Count 192, MPV 9.7, Immature Gran % (Auto) 0.600, Neut % (Auto) 78.3 H, Lymph % (Auto) 12.1 L, [place] % (Auto) 6.8, Eos % (Auto) 2.1, Baso % (Auto) 0.1, Absolute Neuts (auto) 5.5, Absolute Lymphs (auto) 0.85, Nucleated RBC % 0.4, Sodium 134, Potassium 3.5, Chloride 100, Carbon Dioxide 25.1, Anion Gap 9, BUN 35 H, C reatinine 2.95 H, Estim Creat Clear Calc 13.36 L, Est GFR (MDRD) Non-Af 17 L, BUN/Creatinine Ratio 11.9, Glucose 138 H, Calcium 8.1, Phosphorus 2.3 L, Magnesium 1.9, Total Bilirubin 0.36, AST 31, ALT 14, Alkaline Phosphatase 73, T otal Protein 5.1 L, Albumin 3.1 L, Globulin 2.0 L, Albumin/Globulin Ratio 1.5, b-Hydroxybutyric mmol/L 0.0 ABG Data ABG results: ABG 06/02/25 07:46 Specimen Type ART Sample Site L Brach pH 7.06 L* Bicarbonate Actual 16.1 L Total CO2 18 Base Excess -14 L O2 Saturation 88 L O2 % 3.0 ABG pCO2 56.7 H ABG pO2 78 O2 Delivery Device Cannula Vent Mode Not entered Crit Call To/Read Back Yes Blood Gas Notified Whom po Blood Gas Notified Time 07:47:39 Rhythm Strip Rhythm Strip: Sinus Rhythm Rate: 55 Ectopy: None Physical Exam Const alert and no apparent distress; Negative for oriented x3, average body habitus, healthy appearing or well nourished Constitutional Narrative: Mildly confused but awake and alert, upper middle-aged, white female who appears much older than stated age, lying in bed, currently on BiPAP, at bedside Orientation / Consciousness: confused HEENT normocephalic and head/scalp atraumatic; Negative for hearing grossly normal bilaterally HEENT Narrative: Marked hearing loss Neck Neck Narrative: N Resp normal respiratory effort, no retractions, no use of accessory muscles and clear to auscultation bilaterally Resp Narrative: few scattered end expiratory wheezes, on her nocturnal BiPAP as she is waking up this morning Auscultation: Negative for crackles, rhonchi or wheezes Cardio regular rate, regular rhythm, S1 normal heart sound, S2 normal heart sound, no murmurs, no rub, no gallops and no clicks GI normal to inspection, nondistended, normoactive bowel sounds, soft to palpation and non-tender GI Narrative: Scaphoid abdomen Extremity no clubbing, cyanosis or edema Extremity Narrative: Marked decreased lean muscle mass, right upper extremity fistula accessed and patient is on dialysis Neuro moves all extremities and no focal motor deficits Neuro Narrative: Significant generalized weakness noted but no focal deficits Sensorium / Orientation: awake, alert and oriented to person Speech: Negative for speech normal Psych Psych Narrative: Affect is still slightly flat but much improved, eye contact is good, patient much more interactive Assessment & Plan Assessment/Plan (1) Acute hyperkalemia: (2) DKA, type 1: (3) Severe malnutrition: (4) Toxic metabolic encephalopathy: PLAN: Plan DKA - Resolved - Beta hydroxybutyrate is unremarkable - Discontinue DKA protocol - Transition to insulin pump with repeat BMP in 4 hours to ensure appropriate functioning Anion gap metabolic acidosis - Resolved Toxic/metabolic encephalopathy - Resolving Hyperkalemia - Resolved Malfunctioning dialysis access - Resolved with fistulogram done on 06/01/2025 Chronic hypoxic and hypercapnic respiratory failure/COPD -Avoid any sedating medications - Continue home inhalers - Patient is on 2 to 3 L at baseline chronically and currently on 2 L with oxygen saturations at 99% - Baseline CO2 is elevated - BiPAP nocturnally - Blood cultures are pending from admission but patient had blood cultures on the that were unremarkable for growth Cachexia/severe malnutrition - Dietitian is following - Patient is underweight with a BMI of 16.3 - Continue supplements - Dietitian is following CAD/essential hypertension/hyperlipidemia - Continue aspirin and Plavix - continue home statin - Restart home metoprolol and amlodipine ESRD - 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 - HD per nephrology - Patient does home dialysis at baseline - Nephrology is following-appreciate input Chronic anemia secondary to renal disease - Hemoglobin remains stable DM-1 - Restart insulin pump after dialysis - Accu-Cheks as ordered - Check BMP 4 hours after reinitiating pump - Continue outpatient follow-up after discharge with endocrinology DVT prophylaxis - Continue subcu heparin twice daily CODE STATUS - Full code--> this was reconfirmed with Charges/Coding Visit Charges Inpatient E&M: 14155 Subs Hosp L2
[2025-06-03] MEDS: 0.9% Normal Saline 1,000 ML IV.SOLN. 1000 ML OPERA.SITE (08:19)
[2025-06-03] MEDS: PureFlow B 2K Dialysis Soln 1 BAG 6 BAG PF (08:20)
[2025-06-03] MEDS: Epoetin Alfa epbx 10,000 UNIT/ML 6000 UNIT IV (08:22)
[2025-06-03] MEDS: Sodium Phosphate/Na Biphos 30 MMOL in 0.9% Normal Saline (250mL Bag) 250 ML 62.5 MMOL IV (09:21)
--- NOTE | 2025-06-03 09:33 | PN.RENAL_ITS ---
Subjective Subjective seen on dialysis, tolerating fluid removal, attempt 2L today. Pt on BIPAP, wants to go home. Potassium stable Objective Data Objective Data Vital Signs: Vital Signs Temp Pulse Resp BP Pulse Ox O2 Del Method O2 Flow Rate 97.8 F 70 17 152/62 H 100 Bi-pap 2 06/03/25 09:00 06/03/25 09:30 06/03/25 09:30 06/03/25 09:30 06/03/25 09:30 06/03/25 09:30 06/03/25 07:00 FiO2 35 06/03/25 09:30 Oxygen Flow Rate (L/min) 2 Oxygen Delivery Method Bi-pap Weight: 47 kg Body Mass Index (BMI) 18.3 Intake & Output: Intake and Output for Last 24 Hours 06/01/25 06/02/25 06/03/25 23:59 23:59 23:59 Intake Total 1055.88 / 1058.98 1025.12 / 1025.12 Output Total 1070 / 1070 0 / 0 Balance -14.12 / -11.02 1025.12 / 1025.12 Medical Nutrition Assessment Dietitian: Malnutrition Criteria Met Start: 06/02/25 10:20 Freq: Status: Active Protocol: Document 06/02/25 10:20 RMA (Rec: 06/02/25 10:20 RMA [id number]) Nutrition Malnutrition Evidence of Yes Malnutrition Exists Malnutrition (severe Chronic ): Evidenced By Suboptimal Energy Intake (Severe),Weight Loss (Severe), Physical Changes (Severe) Clinical Problem Chronic Disease or Condition Related Malnutrition Etiology severe protein-calorie malnutrition in the context of chronic disease and debility related to inadequate oral /energy intake and increased energy expenditure/COPD Signs/Symptoms as evidenced by currently NPO, BMI 17.9, approximately 8-10% unintentional weight loss x past 6-12 months, inadequate oral intake meeting less than 75% estimated nutrition needs x 12 months and obvious physical signs of muscle wasting and fat depletion in the clavicle, orbital, temporal region, arms and legs. Status Active Problem Recommendation Dietitian Recommend advance diet to Carbohydrate- Controlled/Renal Recommendations/ General. Changes Liberalize diet as needed as PO adequacy established with meals. Consider METAL DRILL OPERATOR consult to evaluate swallowing ability; texture/consistency as per METAL DRILL OPERATOR. PO Nepro as pt willing; has refused in the past. Diet education as pt agreeable. Lab / Micro Data 06/03/25 04:15 06/03/25 04:15 Labs: Laboratory Results - last 24 hr 06/02/25 08:02: POC Glucose 339 H 06/02/25 09:09: POC Glucose 324 H 06/02/25 10:03: POC Glucose 294 H 06/02/25 10:24: Sodium 135, Potassium 4.3, Chloride 97 L, Carbon Dioxide 17.7 L, Anion Gap 20 H, BUN 56 H, Creatinine 3.48 H, Estim Creat Clear Calc 11.65 L, Est GFR (MDRD) Non-Af 14 L, BUN/Creatinine Ratio 15.9, Glucose 285 H, Calcium 8.6, P hosphorus 6.7 H, Magnesium 2.3 H 06/02/25 11:02: POC Glucose 255 H 06/02/25 12:09: POC Glucose 224 H 06/02/25 13:16: POC Glucose 186 H 06/02/25 14:02: POC Glucose 186 H 06/02/25 14:41: Sodium 134, Potassium 4.5, Chloride 99, Carbon Dioxide 20.2 L, Anion Gap 15, Phosphorus 3.9, Magnesium 2.0 06/02/25 15:03: POC Glucose 176 H 06/02/25 16:01: POC Glucose 208 H 06/02/25 17:01: POC Glucose 199 H 06/02/25 17:51: Sodium 135, Potassium 4.0, Chloride 100, Carbon Dioxide 24.1, Anion Gap 11, Phosphorus 3.3, Magnesium 1.9, b-Hydroxybutyric mmol/L 1.2 H 06/02/25 18:01: POC Glucose 217 H 06/02/25 20:05: POC Glucose 230 H 06/02/25 21:09: POC Glucose 227 H 06/02/25 22:02: POC Glucose 212 H 06/02/25 23:13: POC Glucose 214 H 06/03/25 00:09: POC Glucose 193 H 06/03/25 01:01: POC Glucose 172 H 06/03/25 02:12: POC Glucose 166 H 06/03/25 03:08: POC Glucose 162 H 06/03/25 04:07: POC Glucose 126 H 06/03/25 04:15: WBC 7.0, RBC 3.00 L, Hgb 8.5 L, Hct 27.0 L, MCV 90.0 D, MCH 28.3, MCHC 31.5 L D, RDW Std Deviation 47.9 H, RDW Coeff of Iron 15.8 H, Plt Count 192, MPV 9.7, Immature Gran % (Auto) 0.600, Neut % (Auto) 78.3 H, Lymph % (Auto) 12.1 L, [place] % (Auto) 6.8, Eos % (Auto) 2.1, Baso % (Auto) 0.1, Absolute Neuts (auto) 5.5, Absolute Lymphs (auto) 0.85, Nucleated RBC % 0.4, Sodium 134, Potassium 3.5, Chloride 100, Carbon Dioxide 25.1, Anion Gap 9, BUN 35 H, C reatinine 2.95 H, Estim Creat Clear Calc 13.36 L, Est GFR (MDRD) Non-Af 17 L, BUN/Creatinine Ratio 11.9, Glucose 138 H, Calcium 8.1, Phosphorus 2.3 L, Magnesium 1.9, Total Bilirubin 0.36, AST 31, ALT 14, Alkaline Phosphatase 73, T otal Protein 5.1 L, Albumin 3.1 L, Globulin 2.0 L, Albumin/Globulin Ratio 1.5, b-Hydroxybutyric mmol/L 0.0 06/03/25 05:34: POC Glucose 116 H 06/03/25 07:00: POC Glucose 90 06/03/25 08:39: POC Glucose 92 Rhythm Strip Rhythm Strip: Sinus Rhythm Rate: 55 Ectopy: None Physical Exam Narrative on BIPAP Const alert and oriented x3 General Appearance: frail Nutritional Appearance: cachectic and thin Resp Auscultation: wheezes and diminished lung sounds Cardio regular rate GI non-tender and non-distended Auscultation: normoactive bowel sounds Palpation: soft Extremity General Extremity: AV fistula Neuro Sensorium / Orientation: awake and alert Psych cooperative Assessment & Plan Assessment/Plan (1) End-stage renal disease on hemodialysis: PLAN: dialysis today home hemodialysis 4x/week (2) Acute hyperkalemia: PLAN: resolved (3) Chronic hypoxemic respiratory failure: PLAN: stable (4) Anemia: PLAN: retacrit (5) DKA, type 1: PLAN: resolved
[2025-06-03] MEDS: Heparin Injection (Vial) 5,000 UNIT/ML VIAL 5000 UNIT SC ×2 (11:56→22:34)
[2025-06-03] MEDS: Aspirin E.C. 81 MG Tablet PO (11:56)
--- NOTE | 2025-06-03 15:37 | CASEMGMT ---
PT/OT collaborates with this RN CM stating that the pt did not do well with therapy today and that the pt is not safe to return home in her current condition. PT is recommending a short term SNF stay for rehab to help the pt return to her PLOF, prior to returning home. This RN CM generated a list of SNF's in-network with the pt's insurance that are local to the pt's geographical location. RN CM to the pt room at this time. Pt's is at bedside. Pt is currently A&Ox3 and is sitting up in the chair. This RN CM reviewed how the pt did with PT/OT and that they are recommending a short term SNF stay. At this time, the pt and the pt's adamantly decline SNF needs. Pt states that he will be able to care for the pt at home, even in the pt's current condition. This RN CM notified the that chances of readmission are possible based on the pt's performance with therapy. Pt states understanding but states that they also have family support at home including the pt's GS, daughter, and SHIRLENE. This RN CM inquired if the pt would be receptive to C. Pt and pt's also decline stating, We have a big dog at home and HH would not be an option. Pt and pt's also decline OP therapy or any other additional resources/ therapy needs. This RN CM did provide the pt and pt's with the list of SNF's in the case that they change their minds. Pt and pt decline further questions, concerns, or needs at this time. Hospitalist updated with the above information.
[2025-06-03 17:11] LABS: Anion Gap 10 (5-15); BUN 22 mg/dL (4-19); BUN/Creat Ratio 9.9 RATIO (10-20); Calcium,Total 7.7 mg/dL (7.6-11.0); Carbon Dioxide 24.3 mmol/L (21.0-32.0); Chloride 104 mmol/L (98-108); Estimated Creatinine Clearance 17.59 ml/min (50-250); Glucose 157 mg/dL (70-99); Potassium 3.7 mmol/L (3.3-5.1)
[2025-06-03] MEDS: Albuterol 2.5 MG/3 ML VIAL.NEB. INHALATION (21:39)
[2025-06-03] MEDS: 0.9% Saline Lock 10 ML Syringe IV (22:35)
[2025-06-04] VITALS (9 sets, daily range): BP systolic 141–157; BP diastolic 57–61; PULSE 60–72; RESP 12–24; TEMP 36.3–36.9; O2SAT 96–100; BMI 18.3
[2025-06-04] MEDS: 0.9% Saline Lock 10 ML Syringe IV (08:23)
[2025-06-04] MEDS: Aspirin E.C. 81 MG Tablet PO (08:24)
[2025-06-04] MEDS: Heparin Injection (Vial) 5,000 UNIT/ML VIAL 5000 UNIT SC (08:26)
[2025-06-04 08:41] LABS: Anion Gap 11 (5-15); BUN 29 mg/dL (4-19); BUN/Creat Ratio 9.6 RATIO (10-20); Calcium,Total 7.9 mg/dL (7.6-11.0); Carbon Dioxide 23.7 mmol/L (21.0-32.0); Chloride 102 mmol/L (98-108); Estimated Creatinine Clearance 13.66 ml/min (50-250); Glucose 143 mg/dL (70-99); Potassium 3.7 mmol/L (3.3-5.1)
[2025-06-04 08:44] LABS: Hematocrit 30.7 % (37-47); Hemoglobin 9.4 g/dL (12.0-15.0); Mean Corp Hgb Conc 30.6 g/dL (32-36); Mean Corpuscular Volume 93.0 fL (81-99); Mean Platelet Vol. 8.9 fl (6.2-12.0); Platelet Count 165 K/mm3 (150-450); RBC Distribution Width CV 16.7 % (11.6-14.6); RBC Distribution Width SD 54.2 fl (35.1-43.9); Red Blood Count 3.30 M/mm3 (4.2-5.4); White Blood Count 6.4 K/mm3 (4.4-11.0)
--- NOTE | 2025-06-04 09:08 | PCM.DC.SUM ---
Providers Date of Admission: 06/02/25 Date of Discharge: 06/04/25 Primary Care Physician: Dr. Bird Lujan MD Consultations 06/02/25 08:26 Consult: Nephrology Routine Consulting Provider: Christy Huerta Reason for Consult: Chronic HD EMERGENT Consult: No MD Notified: Yes Date Notified: 06/02/25 Time Notified: 08:26 Method of Notification: Text Reason For Visit: DKA Diagnosis Discharge Diagnosis (1) Acute hyperkalemia: Status: Acute Code(s): E87.5 - Hyperkalemia (2) DKA, type 1: Status: Acute Code(s): E10.10 - Type 1 diabetes mellitus with ketoacidosis without coma (3) Severe malnutrition: Status: Acute Code(s): E43 - Unspecified severe protein-calorie malnutrition (4) Toxic metabolic encephalopathy: Status: Acute Code(s): G92.8 - Other toxic encephalopathy (5) End-stage renal disease on hemodialysis: Status: Acute Code(s): N18.6 - End stage renal disease; Z99.2 - Dependence on renal dialysis (6) Anemia: Status: Acute Code(s): D64.9 - Anemia, unspecified (7) Chronic hypoxemic respiratory failure: Status: Chronic Code(s): J96.11 - Chronic respiratory failure with hypoxia Medications at Discharge Home Medications simvastatin 40 mg tablet 40 mg PO QHS cholesterol 06/21/18 albuterol sulfate 2.5 mg/3 mL (0.083 %) solution for nebulization 2.5 mg (3 mL) inhalation Q2H PRN PRN dyspnea, wheezing ##1 06/23/18 aspirin 81 mg tablet,delayed release 81 mg PO DAILY heart health 12/31/19 oxygen See Rx Instructions NASAL .COMPLEX O2 therapy 12/03/23 ipratropium 0.5 mg-albuterol 3 mg (2.5 mg base)/3 mL nebulization soln 3 ml inhalation Q4H PRN PRN SOB &/OR WHEEZING #180 mL 12/29/23 denosumab 60 mg/mL subcutaneous syringe (Prolia) 60 mg subcut [id number] bone health #1 mL 06/10/24 clopidogrel 75 mg tablet 75 mg PO DAILY anti platelet #90 tabs 07/26/24 nitroglycerin 0.4 mg sublingual tablet 0.4 mg sublingual Q5-15M PRN chest pain #25 tabs 10/21/24 metoprolol tartrate 50 mg tablet 50 mg PO BID blood pressure #180 tabs 11/11/24 amlodipine 10 mg tablet (Norvasc) 10 mg PO DAILY blood pressure 30 days #30 tabs 11/20/24 buspirone 7.5 mg tablet 7.5 mg PO DAILY Antianxiety 12/14/24 sevelamer carbonate 800 mg tablet 800 mg PO TID PRN To lower Phosphorus 12/14/24 blood-glucose sensor (FreeStyle Eileen 2 Plus Sensor device) #6 ea 02/09/25 insulin pump cart,auto,BT,G6/L (Omnipod 5 (G6/Eileen 2 Plus) subcutaneous cartridge) #30 ea 02/09/25 albuterol sulfate 90 mcg/actuation aerosol inhaler 2 puff inhalation Q6H PRN PRN Cough #8.5 grams 03/14/25 blood-glucose sensor (DexOneflare G6 Sensor device) #3 ea 04/07/25 blood-glucose transmitter (Dexcom G6 Transmitter device) #1 ea 04/07/25 insulin lispro 100 unit/mL subcutaneous solution (Humalog U-100 Insulin) 60 unit (0.6 mL) continuous subcutaneous infusion .continuous #54 mL 04/07/25 ondansetron 4 mg disintegrating tablet 4 mg PO Q8H PRN PRN Nausea #10 tabs 05/08/25 roflumilast 500 mcg tablet (Daliresp) 500 mcg PO DAILY breathing #30 tabs 05/11/25 fluticasone fur. 200 mcg-umeclid 62.5 mcg-vilant 25 mcg inhalat.powder (Trelegy Ellipta) 1 inh inhalation DAILY breathing #3 ea 05/18/25 calcitriol 0.5 mcg capsule 0.5 mcg PO DAILY supplement 05/31/25 potassium chloride 20 mEq tablet,extended release(part/cryst) 20 meq PO BID potassium 05/31/25 pseudoephedrine-guaifenesin ER 60 mg-600 mg tablet,extend release 12hr (Mucinex D) 1 tab PO BID PRN cold symptoms 06/02/25 Hospital Course Operations None Procedures Dialysis, EKG and - (Chest x-ray) Summary of Care Provided Minutes Spent on Discharge: 39 Hospital Course: SANDY ELLIS, is a 64 F who presented to the emergency department at [facility] early on the morning of 06/02/2025 with a chief complaint of shortness of breath. Patient is chronic hypoxic respiratory failure and on chronic oxygen at 3 L nasal cannula. Her saturations were stable but she seemed to be more tachypneic and having increased confusion. Storms through the night because her electricity go off and her was concerned that maybe she was having some respiratory issues related to her breathing problems. We also discovered that she had not been wearing her insulin pump initially it was thought that she did not have the right supplies but that does not seem to be the case. The states they have all the supplies needed at home but they did not hook her up when she left because she was little bit tired and seemed a little confused from the medication so we did not put her on a pump as ordered at discharge from the hospital. On further questioning, we discovered that she asked the pump to be taken off on Friday and it does not seem like she may have had insulin since that point in time. There did not appear to be any physician notification of pump removal and patient was not getting insulin from what I can tell. She was to go to the OR on Friday for tunneled dialysis catheter placement however this did not end up happening because her fistula was working enough to run dialysis. A fistulogram was done on 06/01/2021 and the patient was run on dialysis without any difficulties and therefore was sent home on the same day. VS on presentation 94.7, HR 60, RR 25, 103/34, 93% on 3 L nasal cannula. CBC shows stable anemia. Chem panel is marked abn with Na 132, K was 6.1, HCO3 was 11.6, AG was 28, renal function was stable, glucose was 255, A1c 5.9. ABG showed a pH of 7.06/pCO2 56.7/PaO2 was 78/bicarb was 16.1. Chest x-ray showed persistent right and mid lower lobe airspace disease that appears to be chronic. Symptoms are no different than previously per . DKA was diagnosed by the emergency department she was placed on an insulin drip and given IV fluids and made NPO. She is admitted to intensive care unit and placed on insulin drip, IV fluids per protocol, electrolyte replacement per protocol, BiPAP as she was having difficulty compensating from a respiratory standpoint due to her chronic lung disease and nephrology was consulted for dialysis. She had dialysis on and Friday. Within 24 hours of admission, her gap had closed and her beta-hydroxybutyrate had cleared. She was transition back to her insulin pump midday on 06/03/2025 and a repeat BMP was done 4 hours after this. BMP looked good. She continued on her insulin pump and repeat lab was drawn in the a.m. of 06/04/2025 which remained good. No signs of acidosis or anion gap present. Blood sugars were fairly well-controlled. She was seen by physical Occupational Therapy and they did recommend placement at discharge. Case management discussed this with family and they were adamant that they were going to take her home and wanted no services. This was reiterated with me. Given this, I am concerned about readmission after discharge due to functional status. I think she is a high risk for readmission based on her chronic medical issues and her overall deconditioning. She was discharged home in stable condition with insulin pump in place on 06/04/2025. No medication changes were made at the time of discharge. Follow-ups given at her previous hospitalization stand and she should follow-up according to this documentation. Continue home dialysis as she had been previously. We did have repeat CODE STATUS discussion and both she and her maintains that she would like to remain full code and understand the risks. Discharge diagnoses: DKA Anion gap metabolic acidosis Toxic/metabolic encephalopathy Hyperkalemia Malfunctioning dialysis access-resolved Chronic hypoxic and hypercapnic respiratory failure COPD Cachexia Severe malnutrition CAD Essential hypertension Hyperlipidemia End-stage renal disease Chronic anemia secondary to renal disease DM-1 Physical Exam Narrative Patient states she is feeling well. Tolerating her insulin pump without any issues. Labs look good. Patient and clear the knowledge of discharge anywhere but home. Const alert, oriented x3 and no apparent distress; Negative for average body habitus, healthy appearing or well nourished Constitutional Narrative: Blood pressure middle-aged, cachectic appearing, white female who appears older than stated age sitting up in bed, appears comfortable, at bedside, watching television, nontoxic General Appearance: cooperative, comfortable and well kempt Orientation / Consciousness: awake, oriented to person, oriented to place, oriented to time and disoriented Nutritional Appearance: cachectic HEENT normocephalic and head/scalp atraumatic; Negative for hearing grossly normal bilaterally HEENT Narrative: Mallampati 1, no thrush, temporal wasting bilaterally, marked hearing loss Eyes Negative for conjunctivae normal Eyes Narrative: Conjunctiva are mildly pale bilaterally, no scleral icterus Neck supple Neck Narrative: Trachea midline, neck veins are flat Resp normal respiratory effort, no retractions, no use of accessory muscles and clear to auscultation bilaterally Resp Narrative: Diminished but clear Auscultation: Negative for crackles, rhonchi or wheezes Cardio regular rate, regular rhythm, S1 normal heart sound, S2 normal heart sound, no murmurs, no rub, no gallops and no clicks GI normal to inspection, nondistended, normoactive bowel sounds, soft to palpation and non-tender GI Narrative: Scaphoid abdomen Extremity no clubbing, cyanosis or edema Extremity Narrative: Marked decreased lean muscle mass, right upper extremity fistula accessed and patient is on dialysis Skin no jaundice, no petechiae and no mottling Skin Narrative: Skin is thin Neuro oriented x3, moves all extremities and no focal motor deficits Neuro Narrative: Significant generalized weakness noted but no focal deficits Speech: speech normal Psych affect normal Psych Narrative: Appears much improved, eye contact is good and patient interacts appropriately, hearing loss impacts interactions Medical Records Data Medical Nutrition Assessment Dietitian: Malnutrition Criteria Met Start: 06/02/25 10:20 Freq: Status: Active Protocol: Document 06/02/25 10:20 RMA (Rec: 06/02/25 10:20 RMA [id number]) Nutrition Malnutrition Evidence of Yes Malnutrition Exists Malnutrition (severe Chronic ): Evidenced By Suboptimal Energy Intake (Severe),Weight Loss (Severe), Physical Changes (Severe) Clinical Problem Chronic Disease or Condition Related Malnutrition Etiology severe protein-calorie malnutrition in the context of chronic disease and debility related to inadequate oral /energy intake and increased energy expenditure/COPD Signs/Symptoms as evidenced by currently NPO, BMI 17.9, approximately 8-10% unintentional weight loss x past 6-12 months, inadequate oral intake meeting less than 75% estimated nutrition needs x 12 months and obvious physical signs of muscle wasting and fat depletion in the clavicle, orbital, temporal region, arms and legs. Status Active Problem Recommendation Dietitian Recommend advance diet to Carbohydrate-Controlled/Renal Recommendations/ General. Changes Liberalize diet as needed as PO adequacy established with meals. Consider RECRUITMENT DIRECTOR consult to evaluate swallowing ability; texture/consistency as per RECRUITMENT DIRECTOR. NIXON Ng as pt willing; has refused in the past. Diet education as pt agreeable. Weight / BMI Weight Weight: 46.9 kg Body Mass Index (BMI) 18.3 ABG / Lab / Microbiology Data 06/04/25 08:37 06/04/25 08:00 Laboratory: Laboratory Results - last 24 hr 06/03/25 15:18: POC Glucose 164 H 06/03/25 16:10: Sodium 138, Potassium 3.7, Chloride 104, Carbon Dioxide 24.3, Anion Gap 10, BUN 22 H, Creatinine 2.24 H, Estim Creat Clear Calc 17.59 L, Est GFR (MDRD) Non-Af 24 L, BUN/Creatinine Ratio 9.9 L, Glucose 157 H, Calcium 7.7 06/03/25 16:15: POC Glucose 148 H 06/03/25 22:31: POC Glucose 141 H 06/04/25 08:00: WBC Cancelled, Corrected WBC Cancelled, RBC Cancelled, Hgb Cancelled, Hct Cancelled, MCV Cancelled, MCH Cancelled, MCHC Cancelled, RDW Std Deviation Cancelled, RDW Coeff of Iron Cancelled, Plt Count Cancelled, MPV Cancelled, Diff Path Review Cancelled, Sodium 136, Potassium 3.7, Chloride 102, Carbon Dioxide 23.7, Anion Gap 11, BUN 29 H, Creatinine 3.04 H, Estim Creat Clear Calc 13.66 L, Est GFR (MDRD) Non-Af 16 L, BUN/Creatinine Ratio 9.6 L, Glucose 143 H, Calcium 7.9 06/04/25 08:37: WBC 6.4, RBC 3.30 L, Hgb 9.4 L, Hct 30.7 L, MCV 93.0, MCH 28.5, MCHC 30.6 L, RDW Std Deviation 54.2 H, RDW Coeff of Iron 16.7 H, Plt Count 165, MPV 8.9 Microbiology: Microbiology 06/02/25 06:58 Blood Culture (Wb) - Left Forearm Blood Culture - Preliminary No growth in 48 hours. 06/02/25 06:42 Blood Culture (Wb) - Anticubital Left Blood Culture - Preliminary No growth in 48 hours. D/C Instructions Discharge Activity: Return to Normal Activity DC O2, CPAP, BIPAP Needs Home O2 Discharge instructions: Yes Type of respiratory needs?: Oxygen Oxygen frequency: Continuous Continuous oxygen liters per minute: 2-3 DC home with Oxygen: Yes Home O2 MD Review: I have reviewed the oxygen testing, and the patient qualifies for home oxygen equipment and portability. The patient is mobile in the home and the community. Meaningful Use Info Meaningful Use Meaningful Use Diagnoses (Choose all that apply): None applicable Discharge Plan Admission Admit Date/Time: 06/02/25 07:07 Primary Reason for Your Visit: Altered mental status Attending Provider: Stacy Huerta Primary Care Provider: Bird Lujan Consulting Providers: Christy Huerta Discharge Orders/Prescriptions Prescriptions: Continued aspirin 81 mg tablet,delayed release (DR/EC) 81 mg PO DAILY oxygen See Rx Instructions NASAL .COMPLEX Rx Instructions: 3L NASALLY; 3 l Trelegy Ellipta 200-62.5-25 mcg blister with device 1 inh inhalation DAILY Qty: 3 3RF simvastatin 40 MG tablet 40 mg PO QHS albuterol sulfate 2.5 MG/3 ML solution for nebulization 2.5 mg INHALATION Q2H PRN PRN (Reason: dyspnea, wheezing) Qty: 1 0RF amlodipine [Norvasc] 10 mg tablet 10 mg PO DAILY 30 Days Qty: 30 0RF sevelamer carbonate 800 mg tablet 800 mg PO TID PRN (Reason: To lower Phosphorus) buspirone 7.5 mg tablet 7.5 mg PO DAILY Patient Comments: PT ONLY WANTS TO TAKE ONCE PER DAY potassium chloride 20 mEq tablet,ER particles/crystals 20 meq PO BID calcitriol 0.5 mcg capsule 0.5 mcg PO DAILY ondansetron 4 mg tablet,disintegrating 4 mg PO Q8H PRN PRN (Reason: Nausea) Qty: 10 0RF pseudoephedrine-guaifenesin [Mucinex D] 60-600 mg tablet extended release 12 hr 1 tab PO BID PRN (Reason: cold symptoms) ipratropium-albuterol 0.5 mg-3 mg(2.5 mg base)/3 mL solution for nebulization 3 ml inhalation Q4H PRN PRN (Reason: SOB &/OR WHEEZING) Qty: 180 6RF Prolia 60 mg/mL syringe 60 mg subcut [id number] Qty: 1 1RF Patient Comments: Next injection is 01/06/2025 clopidogrel 75 mg tablet 75 mg PO DAILY Qty: 90 3RF nitroglycerin 0.4 mg tablet, sublingual 0.4 mg SUBLINGUAL Q5-15M PRN (Reason: chest pain) Qty: 25 44RF Rx Instructions: until response; do not exceed 3 doses per episode metoprolol tartrate 50 mg tablet 50 mg PO BID Qty: 180 3RF (DME) FreeStyle Eileen 2 Plus Sensor Device See Rx Instructions .Route Qty: 6 2RF Rx Instructions: 1 sensor q 15 days (DME) Omnipod 5 (G6/Eileen 2 Plus) Cartridge See Rx Instructions .Route Qty: 30 2RF Rx Instructions: 1 pod q 3 days, must be compatible with eileen 2 plus albuterol sulfate 90 mcg/actuation HFA aerosol inhaler 2 puff INHALATION Q6H PRN PRN (Reason: Cough) Qty: 8.5 2RF insulin lispro [Humalog U-100 Insulin] 100 unit/mL solution 60 unit continuous subcutaneous infusion .continuous Qty: 54 1RF Rx Instructions: via insulin pump Advised to increase the insulin pump (DME) Dexcom G6 Sensor Device See Rx Instructions .Route Qty: 3 5RF Rx Instructions: 1 sensor q 10 days (DME) Dexcom G6 Transmitter Device See Rx Instructions .Route Qty: 1 1RF Rx Instructions: 1 transmitter q 90 days roflumilast [Daliresp] 500 mcg tablet 500 mcg PO DAILY Qty: 30 11RF Referrals / Follow Up: Bird Lujan MD [Primary Care Provider] - Within 1 Week Disposition Disposition (needs filled in before D/C Order can be placed): Home, Self Care Charges/Coding Visit Charges Inpatient E&M: 59895 Disch Hosp >30min
== END 2025-06-04 13:15 | disposition home or self-care (01) | DRG 637 ==
LOC: ED 07:23 → ICU 07:48
PROVIDERS: Admitting Provider Internal Medicine; Emergency Provider Emergency Medicine; PCP Family Medicine; Visit Provider Internal Medicine
DX: E10.10 Type 1 diabetes mellitus with ketoacidosis without coma (principal); E43 Unspecified severe protein-calorie malnutrition; G92.8 Other toxic encephalopathy; N18.6 End stage renal disease; J96.12 Chronic respiratory failure with hypercapnia; I12.0 Hypertensive chronic kidney disease with stage 5 chronic kidney disease or end stage renal disease; J96.11 Chronic respiratory failure with hypoxia; R64 Cachexia; Z68.1 Body mass index [BMI] 19.9 or less, adult; D63.1 Anemia in chronic kidney disease; J44.9 Chronic obstructive pulmonary disease, unspecified; E10.21 Type 1 diabetes mellitus with diabetic nephropathy; E78.5 Hyperlipidemia, unspecified; I25.10 Atherosclerotic heart disease of native coronary artery without angina pectoris; E10.22 Type 1 diabetes mellitus with diabetic chronic kidney disease; Z99.2 Dependence on renal dialysis; Z79.4 Long term (current) use of insulin; E10.42 Type 1 diabetes mellitus with diabetic polyneuropathy; E87.5 Hyperkalemia; I25.2 Old myocardial infarction; Z83.3 Family history of diabetes mellitus; Z87.891 Personal history of nicotine dependence; Z95.5 Presence of coronary angioplasty implant and graft; Z79.51 Long term (current) use of inhaled steroids; Z79.899 Other long term (current) drug therapy; Z79.82 Long term (current) use of aspirin; Z79.02 Long term (current) use of antithrombotics/antiplatelets; Z99.81 Dependence on supplemental oxygen
CPT/HCPCS: 36415; 36600; 71045; 80048; 80051; 80053; 82010; 82803; 82962; 83605; 83735; 84100; 84132; 85025; 85027; 87040; 90937; 93005; 94002; 94003; 94640; 94762; 97162; 97166; 97802; 99252; 99285; 99406; A4216; G0257; G0463; J0612; Q5106

== ENCOUNTER 2025-07-09 17:46 | Emergency (ER) | payer MEDICARE, OTHER, SELFPAY ==
[2025-07-09 17:47] VITALS: BP 139/44; PULSE 58; RESP 18; TEMP 36.4; O2SAT 99; BMI 18.1
[2025-07-09 17:52] VITALS: O2SAT 99
--- OUTSIDE RECORDS SUMMARY | 2025-07-09 18:42 | XMS RPT_ITS | CCD ---
Author Organization [facility] Care Team Providers Care Youth Teacher Name Role Phone Jacobi VALERIO, Ana Rosa F Unavailable Unavailabl e Germángeri ENVIRONMENTAL SERVICES DIRECTOR, Ana Rosa F Unavailable Unavailabl e Dr. Sin Lujan Primary Care Provider [phone] Dr. Sin Lujan Referring Provider ELLIE Medrano Attending Provider Dr. Rios Cordova Attending Provider ELLIE Medrano Attending Provider Dr. Rios Cordova Referring Provider [phone] None, No PCP Unavailable Unavailable Dr. Sin Lujan Primary Care Provider Dr. Sin Lujan Referring Provider Susan JUÁREZ DAIRY NUTRITION SPECIALIST-C Jeanna Attending Provider [phone] ELLIE Medrano Attending Provider Susan DAIRY NUTRITION SPECIALIST, DAIRY NUTRITION SPECIALIST-C Jeanna Referring Provider [phone] Susan JUÁREZ, DAIRY NUTRITION SPECIALIST-C Jeanna Other Provider Dr. Rios Cordova Attending Provider [phone] Sin Lujan Primary Care Provider Dr. Sin Lujan Referring Provider ELLIE Medrano Attending Provider [phone] Susan DAIRY NUTRITION SPECIALIST, DAIRY NUTRITION SPECIALIST-C Jeanna Referring Provider [phone] Susan DAIRY NUTRITION SPECIALIST, DAIRY NUTRITION SPECIALIST-C Jeanna Other Provider Dr. Rios Cordova Attending Provider Dr. Rios Cordova Referring Provider Dr. Sin Lujan Primary Care Provider [phone] Dr. Sin Lujan Referring Provider ELLIE Medrano Attending Provider [phone] Susan DAIRY NUTRITION SPECIALIST, DAIRY NUTRITION SPECIALIST-C Jeanna Attending Provider Phoebe BHARDWAJ, PA Radha Palacios Referring Provider Phoebe BHARDWAJ, PA Radha Palacios Other Provider Dr. Salomon Robbins Attending Provider Radha Aranda Attending Provider Unavailable Dr. Sin Lujan Primary Care Provider [phone] Dr. Sin Lujan Referring Provider Heidi Russell Attending Provider Unavailable Phoebe BHARDWAJ, PA Radha Palacios Attending Provider Ssuan DAIRY NUTRITION SPECIALIST, DAIRY NUTRITION SPECIALIST-C Jeanna Referring Provider Susan DAIRY NUTRITION SPECIALIST, DAIRY NUTRITION SPECIALIST-C Jeanna Other Provider Dr. Rios Cordova Attending Provider Dr. Sin Lujan Primary Care Provider [phone] Dr. Sin Lujan Referring Provider Dr. Terrance Alva Attending Provider Susan DAIRY NUTRITION SPECIALIST, DAIRY NUTRITION SPECIALIST-C Jeanna Referring Provider Susan DAIRY NUTRITION SPECIALIST, DAIRY NUTRITION SPECIALIST-C Jeanna Other Provider Dr. Sin Lujan Primary Care Provider [phone] Dr. Terrance Alva Attending Provider Dr. Sin Lujan Referring Provider Dr. Rios Cordova Attending Provider ELLIE Medrano Attending Provider [phone] Sin Lujan Primary Care Provider [phone] Dr. Sin Lujan Primary Care Provider Dr. Sin Lujan Referring Provider Susan DAIRY NUTRITION SPECIALIST, DAIRY NUTRITION SPECIALIST-C Jeanna Attending Provider Dr. Sin Lujan Primary Care Provider Dr. Sin Lujan Referring Provider Du DAIRY NUTRITION SPECIALIST, DAIRY NUTRITION SPECIALIST-C Kena Attending Provider Dr. Sin Lujan Primary Care Provider Dr. Sin Lujan Referring Provider Susan DAIRY NUTRITION SPECIALIST, DAIRY NUTRITION SPECIALIST-C Jeanna Attending Provider Du DAIRY NUTRITION SPECIALIST, DAIRY NUTRITION SPECIALIST-C Kena Attending Provider MARQUITA Medrano-C Brenda Attending Provider Dr. Juliet Lujan Primary Care Provider Dr. Juliet Lujan Referring Provider [phone] Susan DAIRY NUTRITION SPECIALIST, DAIRY NUTRITION SPECIALIST-C Jeanna Attending Provider Juliet Lujan Primary Care Provider Juliet Lujan Primary Care Provider Lars RN, Param Unavailable Unavailable Lars RN, Param Unavailable Unavailable Lars RN, Param Unavailable Unavailable COLIN PEOPLES Referring Unavailable [facility] Primary Care Unavailable INO CONTE Admitting Unavailable JONI ARANA Consulting Unavailab FLY Adhikari Attending Unavailable ELIZABETH TYLER Referring Unavailable [facility] Primary Care Unavailable TORITO MAHAJAN Referring Unavailable [facility] Primary Care Unavailable SUNI BROWN Referring Unavailable [facility] Primary Care Unavailable TARI BRIGGS Consulting Unavailable KEMAR ADAMES Admitting Unavailable SAVITA DENISE Attending Unavailable TORITO MAHAJAN Referring Unavailable [facility] Primary Care Unavailable MADELINE MONTALVO Attending Unavailable MADELINE MONTALVO Referring Unavailable JULIET LUJAN Primary Care Unavailable ELIESER SOLIS Attending Unavailable WEEKS, ELIESER Referring Unavailable JULIET LUJAN Primary Care Unavailable Tai DAIGLE, Juliet Cochran Primary Care Provider Tai DAIGLE, Dr. Pang Primary Care Provider Tai DAIGLE, Dr. Pang Referring Provider Mitchell DAIRY NUTRITION SPECIALIST-C, Brenda Attending Provider Susan DAIRY NUTRITION SPECIALIST-C, Jeanna Attending Provider Susan DAIRY NUTRITION SPECIALIST-C, Jeanna Referring Provider Po ANDERSON, Dr. Harrison Attending Provider Po ANDERSON, Dr. Harrison Referring Provider Dottie DAIGLE, Dr. Ballesteros Attending Provider Provider, Ed Physician Attending Provider Catina acuna Provider, Ed Physician Emergency Provider Catina LoveEugenio ANDERSON, Dr. Anderson Attending Provider [facility], Dr. Anderson Emergency Provider [facility] DAIRY NUTRITION SPECIALIST-C, Mynor Barbosa Attending Provider Kayleigh Farnsworth Attending Provider Kayleigh Farnsworth Referring Provider Timothy DAIGLE, Dr. Oliveira Attending Provider Dottie DAIGLE, Dr. Ballesteros Referring Provider Dr. Favian Sinclair MD Other Provider Dr. Milind Heath MD Emergency Provider Micaela DAIGLE, Dr. Johnson Attending Provider Micaela DAIGLE, Dr. Johnson Admit Provider Micaela DAIGLE, Dr. Johnson Other Provider Po ANDERSON, Dr. Harrison Other Provider [phone] Pradeep DAIGLE, Dr. Cutler Attending Provider Pradeep DAIGLE, Dr. Cutler Other Provider José Miguel DAIGLE, Dr. Hendricks Other Provider Elham DAIGLE, Dr. Peña Other Provider Art DAIGLE, Dr. Nation Other Provider Artie ANDERSON, Dr. Carlos Other Provider Juan Pablo DAIGLE, Dr. Jimmy Walton Other Provider [phone] Vargas DAIGLE, Dr. Garcia Other Provider [phone] Frannie DAIGLE, Dr. Dorado Other Provider [phone] Lauren DAIGLE, Dr. Stone Other Provider Choco DAIGLE, Dr. Burdick Other Provider [phone] Jeet DAIGLE, Dr. Jameson Other Provider [phone] Guilherme DAIGLE, Dr. Motta Other Provider [phone] Prema DAIGLE, Dr. Cadet Other Provider Lorenzo DAIGLE, Dr. Kim Other Provider Unavailabl mari Franco MD, Dr. Turner Other Provider [phone] Marquez DAIGLE, Dr. Awad Other Provider Yahir DAIGLE, Dr. Langston Other Provider [phone] Peter DAIGLE, Dr. Wang Other Provider Altagracia ANDERSON, Dr. Holguin Other Provider [phone] Adrienne DAIGLE, Dr. Michael Other Provider [phone] Shamika DAIGLE, Dr. Marcano Other Provider [phone] Hardy ANDERSON, Dr. Lopez Other Provider Joaquin DAIGLE, Dr. Lemus Other Provider Donny DAIGLE, Dr. Champagne Other Provider Pradeep DAIGLE, Dr. Cutler Referring Provider Artie ANDERSON, Dr. Carlos Attending Provider Dottie DAIGLE, Dr. Ballesteros Attending Provider [phone] Po ANDERSON, Dr. Harrison Referring Provider Dr. Juliet Lujan MD Primary Care Provider Dr. Juliet Lujan MD Referring Provider Susan DAIRY NUTRITION SPECIALIST-C, Jeanna Attending Provider Susan DAIRY NUTRITION SPECIALIST-C, Jeanna Referring Provider Mitchell DAIRY NUTRITION SPECIALIST-C, Brenda Attending Provider Dottie DAIGLE, Dr. Ballesteros Attending Provider [phone] Po ANDERSON, Dr. Harrison Attending Provider Po ANDERSON, Dr. Harrison Referring Provider Tai DAIGLE, Dr. Pang Primary Care Provider Susan DAIRY NUTRITION SPECIALIST-C, Jeanna Attending Provider Susan DAIRY NUTRITION SPECIALIST-C, Jeanna Referring Provider Tai DAIGLE, Dr. Pang Referring Provider Kayleigh Farnsworth Attending Provider Mitchell DAIRY NUTRITION SPECIALIST-C, Brenda Attending Provider Po ANDERSON, Dr. Harrison Attending Provider Po ANDERSON, Dr. Harrison Referring Provider Kumar DAIGLE, Dr. Vaz Attending Provider Dr. Milind Heath MD Emergency Provider Dr. Justin Parisi DO Emergency Provider Dr. Juliet Lujan MD Primary Care Provider Dr. Juliet Lujan MD Referring Provider Kayleigh Farnsworth Attending Provider Isak ANDERSON, Dr. Anderson Attending Provider Reshma DAIRY NUTRITION SPECIALIST-C, Irais Palacios Attending Provider Dr. Alonzo Edwards DO Emergency Provider Dr. Juliet Lujan MD Primary Care Provider Tai DAIGLE, Dr. Pang Referring Provider [phone] Kayleigh Farnsworth Attending Provider Kumar DAIGLE, Dr. Vaz Attending Provider Kumar DAIGLE, Dr. Vaz Emergency Provider KateEugenio ANDERSON, Dr. Anderson [facility] Emergency Provider Reshma ARGUETA, Irais Palacios Attending Provider Jerry ANDERSON, Dr. Rosado Attending Provider Jerry ANDERSON, Dr. Rosado Emergency Provider Marie DAIGLE, Dr. Hagan Emergency Provider Cristopher ANDERSON, Dr. Ballesteros Admit Provider Cristopher ANDERSON, Dr. Ballesteros Attending Provider Cristopher ANDERSON, Dr. Ballesteros Other Provider Cristopher ANDERSON, Dr. Ballesteros Other Provider Po ANDERSON, Dr. Harrison Other Provider Johnny DAIGLE, Dr. Hannah Other Provider Dr. Favian Sinclair MD Other Provider [phone] Stacy Fontenot DO Attending Provider Dr. Khai Bullard DO Other Provider Dr. Favian Nicholas DO Attending Provider Dr. Brielle Turner MD Attending Provider Dr. Khai Bullard DO Attending Provider Dr. Stacy Fontenot DO Other Provider Ana Rosa Romano PA-C Attending Provider Dr. Favian Sinclair MD Attending Provider Dr. Shivani Mcrae DO Emergency Provider Dr. Stacy Fontenot DO Admit Provider Irais Justice Referring Unavailable [facility] Primary Care Unavailable Irais Justice Attending Unavailable Christy Fontenot Consulting Unavailable Satcy Fontenot Admitting Unavailable Stacy Fontenot Attending Unavailable [facility] Primary Care Unavailable Po Christy Consulting Unavailable Cristopher, Favian Admitting Unavailable Stacy Fontenot Attending Unavailable [facility] Care Unavailable Jonina, Favian Consulting Unavailable Brielle Turner Consulting Unavailable Favian Sinclair Consulting Unavailable Khai Bullard Consulting Unavailable Danette Lani L Admitting Unavailable Lani Samaniego L Consulting Unavailable Favian Nicholas Attending Unavailable [facility] Care Unavailable Marshal Jacobo Consulting Unavailable Leon [...] Consulting Unavailable Lopez Renae Consulting Unavailable Liya Fontenot Consulting Unavailable Eve Adhikari Consulting Unavailable Baldo Tripp Consulting Unavailable Eladio Valdez Consulting Unavailable Casey Lizarraga Consulting Unavailable Terrance Alva Consulting Unavailable Jimmy Almeida Consulting Unavailable Jose Kaye Consulting Unavailable Estrada Kathleen Consulting Unavailable Betrha Aguilar Consulting UnavailGennaro Cordova Consulting Unavailable Trino Marcano Consulting Unavailable Chichi Lloyd Consulting Unavailable Julio Ventura Consulting Unavailable Ritesh Zayas Consulting Unavailable Kian Sinclair Consulting Unavailable Felipe Green Consulting Unavailable Fernanda Deleon Consulting Unavailable Allan Nuñez Consulting Unavailable Ihsan Hines Consulting Unavailable Po Christy Consulting Unavailable Po, Christy Consulting Unavailable Cristopher, Favian Admitting Unavailable Stacy Fontenot Referring Unavailable Favian Sinclair Attending Unavailable [facility] Care Unavailable Cristopher Favian Consulting Unavailable Brielle Turner Consulting Unavailable Dottie Favian Consulting Unavailable Khai Bullard Consulting Unavailable Stacy Fontenot Consulting Unavailable Lani Samaniego Consulting Unavailable Lani Samaniego Admitting Unavailable Favian Nicholas Referring Unavailable Terrance Alva Attending Unavailable [facility] Primary Care Unavailable DonnellMarshal chadwick Consulting Unavailable Leon Cao Consulting Unavailable AdeMario roberson Consulting Unavailable Hinducosme Janet Consulting Unavailable Jamey Kayleigh Consulting Unavailable Shwetha Liliana Consulting Unavailable Eduardo Simpson Consulting Unavailable Stephanie Torres Consulting Unavailable James Mendiola Consulting Unavailable Kalia Cohen Consulting Unavailable Jose Alejandro Chow Consulting Unavailable Kiersten Sherwood Consulting Unavailable Torito Peña Consulting Unavailable Roxanne Mariscal Consulting Unavailable Compa Robles Consulting Unavailable Viji Finchd Carroll Consulting UnavailLyle Gonzalez Consulting Unavailable Frederick Padilla Consulting Unavailable Lopez Renae Consulting Unavailable Liya Fontenot Consulting Unavailable Eve Adhikari Consulting Unavailable Baldo [...] Nuñez Consulting Unavailable Ihsan Hines Consulting Unavailable Cristopher, Favian Consulting Unavailable Lani Samaniego Attending Unavailable Christy Fontenot Consulting Unavailable Favian Nicholas Attending Unavailable Alex Hinojosa Admitting Unavailable Christy Fontenot Consulting Unavailable He Cat Attending Unavailable [facility] Care Unavailable Alex Hinojosa Consulting Unavailable He Cat Consulting Unavailable Susan DAIRY NUTRITION SPECIALIST, Jeanna Attending Unavailable Susan DAIRY NUTRITION SPECIALIST, Jeanna Referring Unavailable [facility] Primary Care Unavailable Kayleigh Payne Attending Unavailable Kayleigh Payne Referring Unavailable Ranney, Christopher Primary Care Unavailable Ranney, Christopher Primary Care Unavailable Milind Heath Attending Unavailable Ranney, Christopher Primary Care Unavailable Provider, Ed Physician Attending Unavailab le Ranney, Christopher Primary Care Unavailable Justin Parisi Attending Unavailabl e Ranney, Christopher Primary Care Unavailable Alonzo Edwards Attending Unavailable Justin Parisi Attending Unavailabl e Ranney, Christopher Primary Care Unavailable Alex Hinojosa Attending Unavailable Ranney, Christopher Primary Care Unavailable Ana Rosa Munoz Attending Unavailable Khai Bullard Attending Unavailable Brielle Turner Attending Unavailable Po, Christy Consulting Unavailable Stacy Fontenot Admitting Unavailable Stacy Fontenot Attending Unavailable Ranney, Christopher Primary Care Unavailable Po Stacy Consulting Unavailable Stacy Fontenot Attending Unavailable Dottie Favina Attending Unavailable Dottie, Favian Referring Unavailable [place], Favian Consulting Unavailable Ranney, Christopher Primary Care Unavailable Baldo Tripp Attending Unavailable Kayleigh Payne Attending Unavailable Ranney, Christopher Referring Unavailable Ranney, Christopher Primary Care Unavailable Ranney, Christopher Referring Unavailable Ranney, Christopher Primary Care Unavailable Brenda Medrano Attending Unavailable Brenda Medrano Attending Unavailable Ranney, Christopher Primary Care Unavailable Ranney, Christopher Referring Unavailable Ranney, Christopher Referring Unavailable Ranney, Christopher Primary Care Unavailable Kayleigh Payne Attending Unavailable Ranney, Christopher Referring Unavailable Ranney, Christopher Primary Care Unavailable Mynor Anthony NP Attending Unavailable Po, Christy Referring Unavailable [place] Attending Unavailable Ranney, Christopher Primary Care Unavailable Ranney, Christopher Referring Unavailable Ranney, Christopher Primary Care Unavailable Jeanna Davis NP Attending Unavailable Irais Justice Attending Unavailable Ranney, Christopher Referring Unavailable Ranney, Christopher Primary Care Unavailable Brenda Medrano Attending Unavailable Ranney, Christopher Primary Care Unavailable [place] Favian Attending Unavailable Ranney, Christopher Primary Care Unavailable Ranney, Christopher Primary Care Unavailable Dottie, Favian Attending Unavailable Lani Samaniego Referring Unavailable Saroj Lemos Attending Unavailable Ranney, Christopher Primary Care Unavailable Ranney, Christopher Primary Care Unavailable Tee Aguirre Attending Unavailabl e [place], Favian Referring Unavailable Ranney, Christopher Primary Care Unavailable Salomon Robbins Attending Unavailable Kayleigh Payne Attending Unavailable [facility] Primary Care Unavailable [facility] Referring Unavailable Favian Sinclair Attending Unavailable [facility] Primary Care Unavailable [facility] Referring Unavailable Favian Nicholas Attending Unavailable Christy Fontenot Consulting Unavailable He Cat Attending Unavailable [facility] Care Unavailable Alex Hinojosa Admitting Unavailable Alex Hinojosa Consulting Unavailable Favian Sinclair Attending Unavailable Favian Sinclair Referring Unavailable [facility] Primary Care Unavailable Christy Fontenot Attending Unavailable Po, Christy Referring Unavailable [facility] Primary Care Unavailable Christy Fontenot Referring Unavailable Christy Fontenot Attending Unavailable [facility] Care Unavailable Khai Bullard Referring Unavailable Susan DAIRY NUTRITION SPECIALIST, Jeanna Attending Unavailable Susan DAIRY NUTRITION SPECIALIST, Jeanna Referring Unavailable [facility] Primary Care Unavailable Terrance Alva Attending Unavailable Pradeep, He Referring Unavailable Eladio Valdez Consulting Unavailable Casey [...] Sinclair Consulting Unavailable Felipe Green Consulting Unavailable Ezio Frias Consulting Unavailable Fernanda Deleon Consulting Unavailable Krys Wick Consulting Unavailable John Dash Consulting Unavailable Allan Nuñez Consulting Unavailable Ihsan Hines Consulting Unavailable Christy Fontenot Attending Unavailable Christy Fontenot Referring Unavailable [facility] Primary Care Unavailable Christy Fontenot Attending Unavailable [facility] Unavailable Allergies Allergy Classification Reported Allergen(s) Allergy Type Date of Onset Reaction(s) Facility (3 sources) environmental [Other] Propensity to adverse reactions 9 [facility] Medications Current Medications Medication Drug Class(es) [...] Plus Sensor) device Active 0 .Route 6 2 February 09, 2025 8:21am Type 1 [...] (20 sources) Corticosteroid, beta2-Adrenergic Agonist Start: 07-20-2024 Breztri Aerosph ere 160-9-4.8 MCG/ACT aerosol 07/20/2024 Active Start: 07-20-2024 End: 10-07-2024 Bxqisubred-Ljivflom-Vvngoeqw ol (Breztri Aerosphere) 160-9-4.8 mcg/actuation HFA aerosol [...] 2024 2:12pm calcitriol 0.0005 mg oral capsule (3 sources) Vitamin D3 Analog Start: 05-31-2025 Calcium Carbonate / vitamin D3 (3 sources) CALCIUM CARBONATE/VITAMIN D3 (CALCIUM + D ORAL) Take by mouth three times daily. Active cholecalciferol 0.025 mg chewable tablet (12 sources) Vitamin D Cholecalciferol ([employer] Vitamin D3) 25 MCG (1000 UT) chewable tablet Chew. Active [facility] VITAMIN D3 1 000 UNIT CHEW Weekly CHOLECALCIFEROL [id number] Alyssia Ibanez RN RN Continuous Glucose Sensor (Dexcom G6 Sensor) [place] (6 sources) Start: 07-22-2024 Continuous Glucose Sensor (Dexcom G6 Sensor) [place] 07/22/2024 Active Continuous Glucose Transmitter (Dexcom G6 transmitter) [place] (6 sources) Start: 07-25-2024 Continuous Glucose Transmitter (Dexcom G6 transmitter) [place] 07/25/2024 Active 1 ml denosumab 60 mg/ml [...] mouth once daily. Active Flash Glucose Scanning [place] (Freestyle Eileen 2 [place]) [place] (20 sources) Start: 11-20-2020 Flash Glucose Scanning [place] (Freestyle [place]en 2 [place]) [place] Active 0 .ROUTE .MEDSUPPLY 1 November 20, 2020 10:12am As directed Start: 11-20-2020 End: 01-27-2025 Flash Glucose Scanning [place] r (Freestyle [place]en 2 [place]) [place] Discontinued 0 .ROUTE .MEDSUPPLY 1 November 20, 2020 1:00am January 27, 2025 8:47am As directed Start: 11-20-2020 Flash Glucose Scanning [place] (Freestyle [place]en 2 [place]) [place] Active 0 .ROUTE .MEDSUPPLY November 20, 2020 12:00am As directed Start: 11-20-2020 Flash Glucose Scanning [place] ([employer] Eileen 2 [place]) misc Active 0 .ROUTE .MEDSUPPLY November 20, 2020 [...] 05-18-2025 End: 05-18-2025 Start: 05-18-2025 End: 05-18-2025 Qqupzvgkuvj-Xddylkfra-Unfrxr er (Trelegy Ellipta) 200-62.5-25 mcg blister with device Discontinued 1 NMA INHALATION DAILY 3 May 18, 2025 8:59am May 18, 2025 9:22am breathing Start: 12-30-2024 End: 05-18-2025 Start: 12-30-2024 End: 05-18-2025 Ukhtbqavkzp-Xhtxzcyja-Cwbmog er (Trelegy Ellipta) 200-62.5-25 mcg blister with device Discontinued 1 NMA INHALATION DAILY 3 December 30, 2024 12:58pm May 18, 2025 8:59am breathing Start: 12-30-2024 Fluticasone-Um eclidin-Vilanter (Trelegy Ellipta) 200-62.5-25 mcg blister with device Active 1 NMA INHALATION DAILY 3 December 30, 2024 12:58pm breathing Start: 12-30-2024 Start: 10-13-2024 End: 12-30-2024 Xcsjhkuisdf-Kqamxpufb-Kvawzd er (Trelegy Ellipta) 200-62.5-25 mcg blister with device Discontinued 1 NMA INHALATION DAILY 3 October 13, 2024 1:00am December 30, 2024 12:58pm Start: 10-13-2024 End: 12-30-2024 Start: 10-29-2023 End: 07-20-2024 Xlijceaegyj-Euykybcuc-Kxuagh er (Trelegy Ellipta) 200-62.5-25 mcg blister with [...] 29, 2023 3:13pm Start: 10-01-2023 End: 10-29-2023 Jhvjqlvtosj-Eljbxjfyh-Wbegrg er (Trelegy Ellipta) 200-62.5-25 mcg blister with device Discontinued 1 NMA INHALATION DAILY 3 October 01, 2023 3:45pm October 29, 2023 4:14pm Start: 10-01-2023 End: 10-29-2023 Start: 10-01-2023 End: 10-29-2023 Kfhmmgbytvo-Pokbeseif-Aogdgi er (Trelegy Ellipta) 200-62.5-25 mcg blister with device Discontinued 1 INH INHALATION DAILY October 01, 2023 3:45pm October 29, 2023 4:14pm Start: 10-01-2023 End: 10-29-2023 Sequgtoeeks-Jtnmtcftj-Mabgyp er (Trelegy Ellipta) 200-62.5-25 mcg blister with device Discontinued 1 INH INHALATION DAILY 3 October 01, 2023 2:45pm October 29, 2023 3:14pm Start: 10-01-2023 Fluticasone-Um eclidin-Vilanter (Trelegy Ellipta) 200-62.5-25 mcg blister with device Active 1 INH INHALATION DAILY 3 October 01, 2023 2:45pm Start: 06-25-2023 End: 10-01-2023 Cyannwynfzl-Mbfizdsxv-Xwrtvk er (Trelegy Ellipta) 200-62.5-25 mcg blister with device Discontinued 1 NMA INHALATION DAILY 60 June 25, 2023 12:00am October 01, 2023 3:46pm Start: 06-25-2023 End: 10-01-2023 Start: 06-25-2023 End: 10-01-2023 Hnuzziwifgy-Gkaokazji-Xrsrsu er (Trelegy Ellipta) 200-62.5-25 mcg blister with device Discontinued 1 INH INHALATION DAILY 60 June 25, 2023 12:00am October 01, 2023 3:46pm Start: 06-25-2023 End: 10-01-2023 Pryhpipvwxb-Bpvtwchby-Qzlohz er (Trelegy Ellipta) 200-62.5-25 mcg blister with device Discontinued 1 INH INHALATION DAILY 60 June 24, 2023 11:00pm October 01, 2023 2:46pm 12 hr guaiFENesin 600 mg / pseudoephedrine hydrochloride 60 mg extended release oral tablet (14 sources) alpha-Adrenergic Agonist Start: 01-06-2025 End: 06-02-2025 Start: 01-06-2025 take 1 tablet by vasile th every twelve hours Pseudoephedrine-Guaifenesin (Mucinex D) 60-600 mg tablet extended release 12 hr Active 1 {tbl} PO TWICE A DAY 14 January 06, 2025 1:00am cold symptoms Insulin Disposable Pump (Omnipod 5 [id number] Intro Gen 5) kit (3 sources) Start: 12-03-2023 Insulin Disposable Pump (Omnipod 5 [id number] Intro Gen 5) kit 12/03/2023 Active Insulin Disposable Pump (Omnipod 5 [id number] Pods Gen 5) misc (3 sources) Start: 07-15-2024 Insulin Disposable Pump (Omnipod 5 [id number] Pods Gen 5) [place] 07/15/2024 Active insulin glargine 100 unt/ml injectable [...] Discontinued 15 U SC EVERY MORNING 15 1 August 27, 2023 3:27pm October 29, 2023 [...] 21 units sq q hs INSULIN GLARGINE [id number] Alyssia Ibanez RN RN Start: 01-21-2015 End: [...] 20 units sq q hs INSULIN GLARGINE [id number] Qi Dunham LPN Insulin Pump Cart,Auto,Bt,G6 /L [...] ZOFRAN 8 MG TABS PRN ONDANSETRON HCL [id number] Alyssia Ibanez RN RN Oxygen (6 sources) [...] chloride 20 meq extended release oral tablet (7 sources) Start: 05-31-2025 Start: 08-22-2024 End: 08-22-2024 [...] sevelamer carbonate 800 mg o ral tablet (12 sources) Phosphate Binder Start: 12-14-2024 simvastatin 40 [...] TABS One tablet by mouth daily SIMVASTATIN [id number] Alyssia Ibanez RN RN Trelegy Ellipta 200-62.5-25 [...] pain and fever 20 ml albumin human, assisted 250 mg/ml injection (12 sources) Human Serum Albumin Start: 08-16-2024 End: 08-17-2024 Start: 08-16-2024 End: 08-16-2024 Start: 08-13-2024 End: 08-13-2024 Start: 08-05-2024 End: 08-05-2024 [id number] 200 actuat albuter ol 0.09 mg/actuat metered [...] 90 Base) MCG/ACT AERS PRN ALBUTEROL SULFATE [id number] Alyssia Ibanez RN RN albuterol 0.833 mg/ml [...] AUGMENTIN 875-125 MG TABS bid AMOXICILLIN-POT CLAVULANATE [id number] Edie Kearney MD Start: 12-30-2012 AUGMENTIN 875- 125 MG TABS bid AMOXICILLIN-POT CLAVULANATE [id number] Edie Kearney MD take 10 mL by mouth every eight hours AUGMENTIN 250-62.5 MG/5ML SUSR 10 ml po q 8 hrs AMOXICILLIN-POT CLAVULANATE [id number] Qi Dunham LPN End: 12-30-2012 take 10 mL by mouth every eight hours AUGMENTIN 250-62.5 MG/5ML SUSR 10 ml po q 8 hrs AMOXICILLIN-POT CLAVULANATE [id number] Edie Kearney MD ASPIRIN TBEC (2 sources) take 1 tablet by mouth once daily ASPIR-81 TBEC One tablet by mouth daily ASPIRIN TBEC [id number] Qi Dunham LPN atorvastatin 20 mg oral tablet (2 sources) HMG-CoA Reductase Inhibitor Start: 08-12-20 24 End: 08-24-20 24 azithromycin 500 mg oral tablet (20 sources) Macrolide Antimicrobial Start: 06-23-20 18 End: 06-30-20 18 B-Complex With Vitamin C (Super B/C) capsule (19 sources) Start: 07-04-20 End: 10-29-20 23 B-Complex With Vitamin C [...] 08-01-2024 End: 08-01-2024 Start: 07-28-2024 End: 07-30-2024 cefdinir 300 mg oral capsule (20 sources) Cephalosporin Antibacterial Start: 01-06-2025 End: 06-02-2025 Start: 06-23-2018 End: 07-30-2018 Start: 06-23-2018 End: 07-30-2018 take 1 capsule by mouth every twelve hours Cefdinir 300 MG capsule Discontinued 300 mg PO Q12H June 23, 2018 12:00am July 30, 2018 12:55pm Chronic obstructive pulmonary disease with (acute) exacerbation Pneumonia, unspecified organism Pneumonia, COPD exac cholecalciferol 9.52 unt/ml / glucose 357 mg/ml oral gel (4 sources) Vitamin D Start: 08-12-2024 End: 08-24-2024 Start: 07-26-2024 End: 08-10-2024 ciprofloxacin 500 mg oral tablet (4 sources) Quinolone Antimicrobial End: 12-30-2012 take 500 mg by mouth every twelve hours CIPRO 500 MG/5ML (10%) SUSR 500mg po q 12 hrs CIPROFLOXACIN [id number] Qi Dunham LPN clopidogrel 75 mg oral [...] by mouth twice daily prn DOCUSATE SODIUM [id number] Alyssia Ibanez RN RN docusate sodium 50 mg / sennosides, assisted 8.6 mg oral tablet (2 sources) Start: 08-17-2024 End: 08-24-2024 doxycycline hyclate 100 mg oral tablet (20 sources) Tetracycline- class Drug Start: 06-27-2021 End: 02-21-2022 Start: 01-21-2013 End: 01-31-2013 take 1 tablet by mouth every twelve hours DOXYCYCLINE HYCLATE 100 MG TABS 100 mg po every 12 hrs x 10 d DOXYCYCLINE HYCLATE [id number] Edie Kearney MD ergocalciferol 1.25 mg oral capsule (20 sources) Provitamin D2 Compound Start: 06-21-2018 End: 07-14-2023 escitalopram 20 mg oral tabl et (20 sources) Serotonin Reuptake Inhibitor Start: 06-21-2018 End: 11-19-2019 take 1 tablet by mouth once alejandra y ESCITALOPRAM OXALATE 10 MG TABS One tablet by mouth daily ESCITALOPRAM OXALATE [id number] Alyssia Ibanez RN RN ferrous sulfate 325 [...] 1:00am July 19, 2021 1:00pm As directed Lmpmibfocmp-Unyxhvpcd-Svxlko er (20 sources) Anticholinergic, Corticosteroid, beta2-Adrenergic Agonist Start: 02-17-2023 End: 06-25-2023 Glogccfyfiz-Dgkgerlyq-Jbqoeu er (Trelegy Ellipta) 100-62.5-25 mcg blister with device Discontinued 1 NMA INHALATION daily 60 February 17, 2023 9:13am June 25, 2023 8:59am Chronic obstructive pulmonary disease, unspecified administer at approximately the same time(s) each day Start: 02-17-2023 End: 06-25-2023 Start: 02-17-2023 End: 06-25-2023 Mlojgalxvut-Szlusnhex-Ufbofr er (Trelegy Ellipta) 100-62.5-25 mcg blister with device Discontinued 1 INH INHALATION daily February 17, 2023 9:13am June 25, 2023 8:59am administer at approximately the same time(s) each day Start: 02-17-2023 End: 06-25-2023 Lmrksmnwzsn-Saiatmxtg-Ratbbo er (Trelegy Ellipta) 100-62.5-25 mcg blister with device Discontinued 1 INH INHALATION daily 60 February 17, 2023 8:13am June 25, 2023 7:59am administer at approximately the same time(s) each day Start: 02-17-2023 Fluticasone-Um eclidin-Vilanter (Trelegy Ellipta) 100-62.5-25 mcg blister with device Active 1 INH INHALATION daily 60 February 17, 2023 9:13am administer at approximately the same time(s) each day Start: 02-21-2022 End: 02-17-2023 Qkuobzujiqi-Ozjoarqqr-Nppkcw er (Trelegy Ellipta) 100-62.5-25 mcg blister with device Discontinued 1 NMA INHALATION daily 60 February 21, 2022 1:21pm February 17, 2023 9:13am Chronic obstructive pulmonary disease, unspecified administer at approximately the same time(s) each day Start: 02-21-2022 End: 02-17-2023 Start: 02-21-2022 End: 02-17-2023 Tpjyuyqtkqv-Ebcrcuhfi-Ttmhup er (Trelegy Ellipta) 100-62.5-25 mcg blister with device Discontinued 1 INH INHALATION daily 60 February 21, 2022 12:21pm February 17, 2023 8:13am administer at approximately the same time(s) each day Start: 02-21-2022 End: 02-17-2023 Sgexfezzdok-Jsdtxtcup-Chfjlp er (Trelegy Ellipta) 100-62.5-25 mcg blister with [...] time(s) each day Start: 01-16-2022 End: 02-21-2022 Upkgtmtxtzv-Kncmtimoo-Zeekxl er (Trelegy Ellipta) 100-62.5-25 mcg blister with device Discontinued 1 NMA INHALATION daily 60 0 January 16, 2022 11:47am February 21, 2022 1:22pm Chronic obstructive pulmonary disease, unspecified administer at approximately the same time(s) each day Start: 01-16-2022 End: 02-21-2022 Start: 01-16-2022 End: 02-21-2022 Cmmaxpkgqsq-Mozwrhqsy-Qiugbm er (Trelegy Ellipta) 100-62.5-25 mcg blister with device Discontinued 1 INH INHALATION daily 60 January 16, 2022 10:47am February 21, 2022 12:22pm administer at approximately the same time(s) each day Start: 01-16-2022 End: 02-21-2022 Fysrntxdsfb-Mqbtoolys-Nanaju er (Trelegy Ellipta) 100-62.5-25 mcg blister with device Discontinued 1 INH INHALATION daily 60 January 16, 2022 11:47am February 21, 2022 1:22pm administer at approximately the same time(s) each day Start: 01-16-2022 Fluticasone-Um eclidin-Vilanter (Trelegy Ellipta) 100-62.5-25 mcg blister with device Active 1 INH INHALATION daily 60 January 16, 2022 11:47am administer at approximately the same time(s) each day Start: 09-10-2021 End: 01-16-2022 Aokaayjncxv-Lueykspdi-Eifkrj er (Trelegy Ellipta) 100-62.5-25 mcg blister with device Discontinued 1 NMA INHALATION daily 60 3 September 10, 2021 2:48pm January 16, 2022 11:48am Chronic obstructive pulmonary disease, unspecified administer at approximately the same time(s) each day Start: 09-10-2021 End: 01-16-2022 Start: 09-10-2021 End: 01-16-2022 Huqqcvsdvra-Gexklpzxk-Eksahk er (Trelegy Ellipta) 100-62.5-25 mcg blister with device Discontinued 1 INH INHALATION daily 60 September 10, 2021 1:48pm January 16, 2022 10:48am administer at approximately the same time(s) each day Start: 09-10-2021 End: 01-16-2022 Mcsrrmlidcq-Djocgccrh-Dqtwjr er (Trelegy Ellipta) 100-62.5-25 mcg blister with device Discontinued 1 INH INHALATION daily 60 September 10, 2021 2:48pm January 16, 2022 11:48am administer at approximately the same time(s) each day Start: 04-03-2021 End: 09-10-2021 Mblsdcptfin-Rbxfqqgui-Mcljgp er (Trelegy Ellipta) 100-62.5-25 mcg blister with device Discontinued 1 NMA INHALATION daily 60 April 03, 2021 10:55am September 10, 2021 2:49pm Chronic obstructive pulmonary disease, unspecified administer at approximately the same time(s) each day Start: 04-03-2021 End: 09-10-2021 Start: 04-03-2021 End: 09-10-2021 Slpwcgbbhpe-Cjdvfxvgn-Muodsg er (Trelegy Ellipta) 100-62.5-25 mcg blister with device Discontinued 1 INH INHALATION daily 60 April 03, 2021 9:55am September 10, 2021 1:49pm administer at approximately the same time(s) each day Start: 04-03-2021 End: 09-10-2021 Fvkzyjesnwx-Sbekinydm-Qxlzuj er (Trelegy Ellipta) 100-62.5-25 mcg blister with device Discontinued 1 INH INHALATION daily 60 April 03, 2021 10:55am September 10, 2021 2:49pm administer at approximately the same time(s) each day Start: 09-12-2020 End: 04-03-2021 Cbidzniptmy-Rogdfycac-Weudwk er (Trelegy Ellipta) 100-62.5-25 mcg blister with device Discontinued 1 INH INHALATION daily 60 September 12, 2020 9:59am April 03, 2021 10:55am administer at approximately the same time(s) each day Start: 09-12-2020 End: 04-03-2021 Pkcwrhaazjl-Gutfdozsm-Evjomf er (Trelegy Ellipta) 100-62.5-25 mcg blister with device Discontinued 1 NMA INHALATION daily 60 3 September 12, 2020 1:00am April 03, 2021 10:55am Chronic obstructive pulmonary disease, unspecified administer at approximately the same time(s) each day Start: 09-12-2020 End: 04-03-2021 Start: 09-12-2020 End: 04-03-2021 Dsdftfugwgy-Iauxedqza-Ktejpp er (Trelegy Ellipta) 100-62.5-25 mcg blister with device Discontinued 1 INH INHALATION daily 60 September 12, 2020 12:00am April 03, 2021 9:55am administer at approximately the same time(s) each day Start: 09-12-2020 End: 04-03-2021 Noscpgbopwy-Zlzrdqoeq-Vekbmz er (Trelegy Ellipta) 100-62.5-25 mcg blister with [...] in case of hypoglycemia emergency GLUCAGON (RDNA) [id number] Alyssia Ibanez RN RN 150 ml glucose [...] po q 4 hrs prn HYDROMORPHONE HCL [id number] Qi Dunham LPN ibuprofen 200 mg oral tablet (8 sources) Nonsteroidal Anti-inflammatory Drug End: 12-16-2012 take 1 tablet by mouth every six hours as needed MOTRIN IB TABS 800 mg by mouth q 6 hrs prn IBUPROFEN TABS 50262329944 Qi Dunham LPN End: 12-30-2012 ADVIL 200 MG CAPS q 4 hrs as needed IBUPROFEN [id number] Edie Kearney MD Insulin Basal Pump (Pt's [...] SOLN 21 units at bedtime INSULIN DETEMIR [id number] Alyssia Ibanez RN RN insulin isophane, human [...] a day with meals INSULIN LISPRO (HUMAN) [id number] Qi uDnham [facility] End: 12-30-2012 take 5 [IU] by subcutaneous injection three times daily at mealtime HUMALOG 100 UNIT/ML SOLN 5 units sq three times a day with meals INSULIN LISPRO (HUMAN) [id number] Edie Kearney MD Insulin Pump Cart,Auto,Bt-Cn tr [...] 15/64 0.3 ML MISC INSULIN SYRINGE-NEEDLE U-100 [id number] Alyssia Ibanez RN RN insulin aspart, human [...] NOVOLOG 100 UNIT /ML SOLN INSULIN ASPART [id number] Alyssia Ibanez RN RN insulin, regular, human [...] by mouth daily for 5 days LEVOFLOXACIN 23343559606 Qi Dunham LPN lisinopril 2.5 mg oral [...] Nitrofuran Antibacterial Start: 08-09-2024 End: 08-24-2024 nystatin 856277 unt/ml oral suspension (20 sources) Polyene Antifungal Start: 06-23-2018 End: 12-31-2018 oxyCODONE hydrochloride 5 mg oral tablet (12 sources) Opioid Agonist Start: 12-28-2024 End: 01-04-2025 [...] Start: 08-12-2024 End: 08-12-2024 polyethylene glycol 3350 16962 mg powder for oral solution (4 sources) Osmotic Laxative Start: 08-17-2024 End: 08-24-2024 Start: 07-26-2024 End: 08-10-2024 take 17 g by mouth every twenty-four jesus rs as needed for constipation potassium gluconate 2.13 meq oral tablet (12 sources) Start: 12-16-2024 End: 01-06-2025 potassium phosphate [...] 18 MCG CAPS Daily TIOTROPIUM BROMIDE MONOHYDRATE [id number] Alyssia Ibanez RN RN varenicline 1 mg oral tablet (4 sources) Partial Cholinergic Nicotinic Agonist End: 01-21-2013 take 2 tablets by mouth once daily CHANTIX 1 MG TABS Two tablets by mouth daily VARENICLINE TARTRATE [id number] Edie Kearney MD (6 sources) Start: 08-22-2024 [...] Date Documented Da te Episodic/Chronic Abdominal pain (8 sources) Abdominal pain; Translations: [Unspecified abdominal pain] [...] Chronic Complication of device; implant or graft (7 sources) Arteriovenous fistula stenosis; Translations: [Stenosis of other vascular prosthetic devices, implants and grafts, initial encounter] Onset: 06-28-2025 05-31-2025 Chronic Complication of device; implant or graft (8 sources) Disorder of surgical arteriovenous fistula; Translations: [Other mechanical complication of surgically created arteriovenous fistula, initial encounter] Onset: 06-28-2025 05-28-2025 Episodic Coronary atherosclerosis and other heart disease (20 sources) Coronary atherosclerosis; Translations: [Atherosclerotic heart disease of [place] coronary artery without angina pectoris] Onset: 08-12-2024 02-17-2023 Chronic Deficiency and other anemia (20 sources) Anemia; Translations: [Anemia, unspecified] Onset: 07-26-2024 12-13-2022 Episodic Deficiency and other anemia (12 sources) Normocytic normochromic anemia; Translations: [Anemia, unspecified] 07-23-2024 Episodic Deficiency and other anemia (1 source) Anemia, unspecified; Translations: [Anemia, unspecified] Onset: 06-04-2025 Episodic Diabetes mellitus with complications (20 sources) [...] disorders (20 sources) Ketoacidosis; Translations: [Acidosis] Onset: 05-24-2025 06-21-2018 Episodic Genitourinary symptoms and ill-defined conditions [...] Onset: 08-12-2024 06-21-2018 Episodic Nonspecific chest pain (14 sources) Chest pain; Translations: [Chest pain, unspecified] Onset: 08-12-2024 08-12-2024 Episodic Nutritional deficiencies (20 sources) Vitamin D deficiency; Translations: [Vitamin D deficiency, unspecified] Onset: 06-04-2025 01-27-2025 Chronic Nutritional deficiencies (7 sources) Cachexia; Translations: [Cachexia] Onset: 06-28-2025 05-30-2025 Episodic Osteoporosis (20 sources) Osteoporosis; Translations: [Age-related osteoporosis without current [...] (recurrent)] 08-25-2024 Episodic Other lower respiratory disease (12 sources) Dyspnea on exertion; Translations: [Other forms of dyspnea] 05-05-2024 Episodic Other lower respiratory disease (20 sources) Hypercapnia; Translations: [Other abnormalities of breathing] 11-04-2024 Episodic Other lower respiratory disease (7 sources) Dyspnea; Translations: [Dyspnea, unspecified] 05-27-2025 Episodic Other lower respiratory disease (2 sources) Other abnormalities of breathing; Translations: [Other abnormalities of breathing] Onset: 03-24-2025 Episodic Other lower respiratory disease (1 source) Dyspnea, unspecified; Translations: [Dyspnea, unspecified] Onset: 06-28-2025 Episodic Other nervous system disorders (2 sources) Toxic metabolic encephalopathy; 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] 06-02-2025 Episodic Other nutritional; endocrine; and metabolic disorders [...] Episodic Other nutritional; endocrine; and metabolic disorders (12 sources) Severe thinness in adulthood; Translations: [Underweight] 08-01-2024 Episodic Other screening for suspected conditions (not mental disorders or infectious disease) (20 sources) Patient encounter status; Translations: [Encounter for screening for osteoporosis] Onset: 06-28-2025 08-01-2024 Episodic Other skin disorders (20 sources) [...] [Tobacco use disorder] Episodic Residual codes; unclassified (20 sources) Harmful pattern of use of nicotine; [...] loss of consciousness status unknown, initial encounter ([facility]); Translations: [Traumatic subdural hemorrhage with loss of consciousness status unknown, initial encounter ([facility])] Onset: 07-26-2024 Unclassified (3 sources) PMH - PAST MEDICAL HISTORY OF 03-23-2009 Unclassified (1 source) Other toxic encephalopathy; 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] Onset: 06-04-2025 Viral infection (12 sources) Disease caused by 2019-nCoV; Translations: [COVID-19] [...] [Dizziness and giddiness] Onset: 4 08-12-2024 Episodic Other gastrointestinal disorders (2 sources) H/O: gastrointestinal disease; Translations: [Personal history of other diseases of the digestive system] Onset: 3 01-21-2013 Episodic Other upper respiratory disease (4 sources) Retropharyngeal abscess; Translations: [Disorder of pharynx] Onset: 3 01-21-2013 Episodic Pleurisy; pneumothorax; pulmonary collapse (20 sources) Bilateral pleural effusion; Translations: [Pleural effusion, [...] loss of consciousness status unknown, initial encounter ([facility]); Translations: [Traumatic subdural hemorrhage with loss of consciousness status unknown, initial encounter ([facility])] Onset: 4 Results Test Name Value Interpretation Reference Range Facility Anion gap in Serum or Plasma Ordered By: Stacy Fontenot on 06-04-2025 Anion gap [Moles/Vol] 11 mmol/L 5-15 [facility] BUN/creatinine ratioOrdered By: Stacy Fontenot on 06-04-2025 Urea nitrogen/Creatinine [Mass ratio] 9.6 mg/mg Low 10-20 [facility] Carbon dioxide, total [Moles /volume] in Central venous bloodOrdered By: Stacy Fontenot on 06-04-2025 CO2 [Moles/Vol] 23.7 mmol/L 21.0-32.0 [facility] Chloride assayOrdered By: Marisol Fontenot on 06-04-2025 Chloride [Moles/Vol] 102 mmol/L 98-108 [facility] Culture, Blood (WB)on 2024 CUB No growth in 5 days. Normal [facility] Comment on above: Performed By: #### M 200.1000 ####[facility] [id number] [place], [address] Erythrocyte distribution wid th ratioOrdered By: Stacy Fontenot on 06-04-2025 Erythrocyte distribution width (RBC) [Ratio] 16.7 % High 11.6-14.6 [facility] Erythrocyte distribution wid th standard deviationOrdered By: Stacy Fontenot on 06-04-2025 Erythrocyte distribution width (RBC) [Ratio] 54.2 fl High 35.1-43.9 [facility] Glomerular filtration rate ( GFR) estimation/1.73 sq m using serum, plasma, or whole bOrdered By: Stacy Fontenot on 06-04-2025 GFR/1.73 sq M.predicted among non-blacks MDRD (S/P/Bld) [Vol rate/Area] 16 mL/min/{1.73_m2} Low >60 [facility] Hematocrit Auto (Bld) [Volum e fraction]Ordered By: Stacy Fontenot on 06-04-2025 Hematocrit (Bld) [Volume fraction] 30.7 % Low 37-47 [facility] Hemoglobin measurementOrdere d By: Stacy Fontenot on 06-04-2025 Hemoglobin (Bld) [Mass/Vol] 9.4 g/dL Low 12.0-15.0 [facility] MCV (mean corpuscular volume ) determinationOrdered By: Stacy Fontenot on 06-04-2025 MCV (RBC) [Entitic vol] 93.0 fL 81-99 [facility] Mean corpuscular hemoglobin (MCH) determinationOrdered By: Stacy Fontenot on 06-04-2025 MCH (RBC) [Entitic mass] 28.5 pg 27.0-32.0 [facility] Platelet countOrdered By: Marisol Fontenot on 06-04-2025 Platelets (Bld) [#/Vol] 165 10*3/uL 150-450 [facility] Potassium measurement (mass/ volume)Ordered By: Stacy Fontenot on 06-04-2025 Potassium (Unsp spec) [Mass/Vol] 3.7 mmol/L 3.3-5.1 [facility] RBC Auto (Bld) [#/Vol]Ordere d By: Stacy Fontenot on 06-04-2025 RBC (Bld) [#/Vol] 3.30 10*6/uL Low 4.2-5.4 [facility] Serum creatinine measurement (mass/volume)Ordered By: Stacy Fontenot on 06-04-2025 Creatinine [Mass/Vol] 3.04 mg/dL High 0.70-1.20 [facility] Serum glucose measurement (m ass/volume)Ordered By: Stacy Fontenot on 06-04-2025 Glucose [Mass/Vol] 143 mg/dL High 70-99 [facility] Serum or plasma calcium lesly urement (mass/volume)Ordered By: Stacy Fontenot on 06-04-2025 Calcium [Mass/Vol] 7.9 mg/dL 7.6-11.0 [facility] Serum or plasma urea nitroge n measurement (mass/volume)Ordered By: Stacy Fontenot on 06-04-2025 Urea nitrogen [Mass/Vol] 29 mg/dL High 4-19 [facility] Sodium levelOrdered By: Veronica Fontenot on 06-04-2025 Sodium [Moles/Vol] 136 mmol/L 133-145 [facility] White blood cell (WBC) count Ordered By: Stacy Fontenot on 06-04-2025 WBC (Bld) [#/Vol] 6.4 10*3/uL 4.4-11.0 [facility] Absolute lymphocyte countOrd ered By: Stacy Fontenot on 06-03-2025 Lymphocytes Auto (Unsp spec) [#/Vol] 0.85 10*3/uL 0.83-4.51 [facility] Automated lymphocyte count a s percentage of total leukocytesOrdered By: Stacy Fontenot on 06-03-2025 Lymphocytes/100 WBC Auto (Unsp spec) 12.1 % Low 19-41 [facility] Basophil percentageOrdered B y: Stacy Fontenot on 06-03-2025 Basophils/100 WBC (Bld) 0.1 % 0-1 [facility] Beta-hydroxybutyrateOrdered By: Stacy Fontenot on 06-03-2025 Beta hydroxybutyrate [Mass/Vol] 0.0 mmol/L 0.0-0.3 [facility] Bilirubin, totalOrdered By: Stacy Fontenot on 06-03-2025 Bilirubin [Mass/Vol] 0.36 mg/dL 0.00-1.30 [facility] Eosinophil percentageOrdered By: Stacy Fontenot on 06-03-2025 Eosinophils/100 WBC (Bld) 2.1 % 0-5 [facility] Glucose measurement at bedsi deOrdered By: Stacy Fontenot on 06-03-2025 Glucose [Mass/Vol] 141 mg/dL High 74-106 [facility] Immature granulocytes/100 WB C Auto (Bld)Ordered By: Stacy Fontenot on 06-03-2025 Immature granulocytes/100 WBC (Bld) 0.600 % 0.0-0.9 [facility] Magnesium measurement (mass/ volume)Ordered By: Stacy Fontenot on 06-03-2025 Magnesium (Unsp spec) [Mass/Vol] 1.9 mg/dL 1.5-2.2 [facility] Monocyte percentageOrdered B y: Stacy Fontenot on 06-03-2025 Monocytes/100 WBC (Bld) 6.8 % 0-10 [facility] Neutrophil percentageOrdered By: Stacy Fontenot on 06-03-2025 Neutrophils/100 WBC (Bld) 78.3 % High 47-70 [facility] No Panel InformationOrdered By: Stacy Fontenot on 06-03-2025 31 U/L <32 [facility] Serum globulin measurementOr dered By: Stacy Fontenot on 06-03-2025 Globulin (S) [Mass/Vol] 2.0 g/dL Low 2.2-4.2 [facility] Serum or plasma alanine martinez otransferase (ALT) measurementOrdered By: Stacy Fontenot on 06-03-2025 ALT [Catalytic activity/Vol] 14 U/L <35 [facility] Serum or plasma albumin lesly urement (mass/volume)Ordered By: Stacy Fontenot on 06-03-2025 Albumin [Mass/Vol] 3.1 g/dL Low 3.4-4.8 [facility] Serum or plasma albumin/glob ulin mass ratioOrdered By: Stacy Fontenot on 06-03-2025 Albumin/Globulin [Mass ratio] 1.5 {ratio} 0.9-2.4 [facility] Serum or plasma alkaline william sphatase measurementOrdered By: Stacy Fontenot on 06-03-2025 ALP [Catalytic activity/Vol] 73 U/L 35-104 [facility] Total proteinOrdered By: Layla pylearacelis Po on 06-03-2025 Protein [Mass/Vol] 5.1 g/dL Low 5.9-8.4 [facility] Absolute lymphocyte countOrd ered By: Shivani Mcrae on 06-02-2025 Lymphocytes Auto (Unsp spec) [#/Vol] 0.44 10*3/uL Low 0.83-4.51 [facility] Anion gap in Serum or Plasma Ordered By: Shivani Mcrae on 06-02-2025 Anion gap [Moles/Vol] 28 mmol/L High 5-15 [facility] Automated lymphocyte count a s percentage of total leukocytesOrdered By: Shivani Mcrae on 06-02-2025 Lymphocytes/100 WBC Auto (Unsp spec) 6.0 % Low 19-41 [facility] BUN/creatinine ratioOrdered By: Shivani Mcrae on 06-02-2025 Urea nitrogen/Creatinine [Mass ratio] 14.9 mg/mg 10-20 [facility] Basic Metabolic Profile (BMP )on 06-02-2025 BUN/CRE 15.9 RATIO Normal -20 [facility] Comment on above: Performed By: #### L 500.2500, L501.5200, L501.2300 ####[facility] [address] [place], [address] Calcium [Mass/Vol] 8.6 mg/dL Normal 7.6-11.0 [facility] Comment on above: Performed By: #### L 500.2500, L501.5200, L501.2300 ####[facility] [address] [place], [address] Chloride [Moles/Vol] 97 mmol/L Low 98-108 [facility] Comment on above: Performed By: #### L 500.2500, L501.5200, L501.2300 ####[facility] [address] [place], [address] CO2 [Moles/Vol] 17.7 mmol/L Low 21.0-32.0 [facility] Comment on above: Performed By: #### L 500.2500, L501.5200, L501.2300 ####[facility] [address] [place], [address] Creatinine [Mass/Vol] 3.48 mg/dL High 0.70-1.20 [facility] Comment on above: Performed By: #### L 500.2500, [id number], L501.2300 ####[facility] [address] [place], [address] GAP 20 High 5-15 [facility] Comment on above: Performed By: #### L 500.2500, L501.5200, L501.2300 ####[facility] [address] [place], [address] GFR/1.73 sq M.predicted among non-blacks MDRD (S/P/Bld) [Vol rate/Area] 14 mL/min/{1.73_m2} Low >60 [facility] Comment on above: Result Comment: mL/m in/1.73m2 CKD-EPI Creatinine Equation (2020) Performed By: #### L 500.2500, L501.5200, L501.2300 ####[facility] [address] [place], [address] Glucose [Mass/Vol] 285 mg/dL High 70-99 [facility] Comment on above: Performed By: #### L 500.2500, L501.5200, L501.2300 ####[facility] [address] [place], [address] Potassium [Moles/Vol] 4.3 mmol/L Normal 3.3-5.1 [facility] Comment on above: Performed By: #### L 500.2500, L501.5200, L501.2300 ####[facility] [address] [place], [address] Sodium [Moles/Vol] 135 mmol/L Normal 133-145 [facility] Comment on above: Performed By: #### L 500.2500, L501.5200, L501.2300 ####[facility] [address] [place], [address] Urea nitrogen [Mass/Vol] 56 mg/dL High 4-19 [facility] Comment on above: Performed By: #### L 500.2500, L501.5200, L501.2300 ####[facility] [address] [place], [address] BUN/CRE 14.9 RATIO Normal 10-20 [facility] Comment on above: Performed By: #### L 500.2500, L100.0100 ####[facility] [address] [place], [address] Calcium [Mass/Vol] 8.3 mg/dL Normal 7.6-11.0 [facility] Comment on above: Performed By: #### L 500.2500, L100.0100 ####[facility] [address] [place], [address] Chloride [Moles/Vol] 93 mmol/L Low 98-108 [facility] Comment on above: Performed By: #### L 500.2500, L100.0100 ####[facility] [address] [place], [address] CO2 [Moles/Vol] 11.6 mmol/L Low 21.0-32.0 [facility] Comment on above: Performed By: #### L 500.2500, L100.0100 ####[facility] [address] [place], [address] Creatinine [Mass/Vol] 3.92 mg/dL High 0.70-1.20 [facility] Comment on above: Performed By: #### L 500.2500, L100.0100 ####[facility] [address] [place], [address] ECRCL 10.57 ml/min Low 50-250 [facility] Comment on above: Performed By: #### L 500.2500, L100.0100 ####[facility] [address] [place], [address] GAP 28 High 5-15 [facility] Comment on above: Performed By: #### L 500.2500, L100.0100 ####[facility] [address] [place], [address] GFR/1.73 sq M.predicted among non-blacks MDRD (S/P/Bld) [Vol rate/Area] 12 mL/min/{1.73_m2} Low >60 [facility] Comment on above: Result Comment: mL/m in/1.73m2 CKD-EPI Creatinine Equation (2020) Performed By: #### L 500.2500, L100.0100 ####[facility] [address] [place], [address] Glucose [Mass/Vol] 366 mg/dL High 70-99 [facility] Comment on above: Performed By: #### L 500.2500, L100.0100 ####[facility] [address] [place], [address] Potassium [Moles/Vol] 6.1 mmol/L Invalid Interpretation Code 3.3-5.1 [facility] Comment on above: Result Comment: Crit ical Result(s) Called at:[id number]: FREDDIE DUNHAM??Results read back by same. Performed By: #### L 500.2500, L100.0100 ####[facility] [address] [place], [address] Sodium [Moles/Vol] 132 mmol/L Low 133-145 [facility] Comment on above: Performed By: #### L 500.2500, L100.0100 ####[facility] [address] [place], [address] Urea nitrogen [Mass/Vol] 59 mg/dL High 4-19 [facility] Comment on above: Performed By: #### L 500.2500, L100.0100 ####[facility] [address] [place], [address] Basophil percentageOrdered B y: Shivani Godman on 06-02-2025 Basophils/100 WBC (Bld) 0.1 % 0-1 [facility] Bedside Glucoseon 06-02-2025 FINGERSTICK GLU 186 mg/dL High 74-106 [facility] Comment on above: Result Comment: SHELLY GEMENT OF PATIENT CARE PER NURSING PROTOCOL Performed By: #### L 501.080 ####[facility] [address] [place], [address] FINGERSTICK GLU 186 mg/dL High 74-106 [facility] Comment on above: Result Comment: SHELLY GEMENT OF PATIENT CARE PER NURSING PROTOCOL Performed By: #### L 501.080 ####[facility] [address] [place], [address] FINGERSTICK GLU 294 mg/dL High 74-106 [facility] Comment on above: Result Comment: SHELLY GEMENT OF PATIENT CARE PER NURSING PROTOCOL Performed By: #### L 501.080 ####[facility] [address] [place], [address] FINGERSTICK GLU 255 mg/dL High 74-106 [facility] Comment on above: Result Comment: SHELLY GEMENT OF PATIENT CARE PER NURSING PROTOCOL Performed By: #### L 501.080 ####[facility] [address] [place], [address] FINGERSTICK GLU 224 mg/dL High 74-106 [facility] Comment on above: Result Comment: SHELLY GEMENT OF PATIENT CARE PER NURSING PROTOCOL Performed By: #### L 501.080 ####[facility] [address] [place], [address] FINGERSTICK GLU 324 mg/dL High 74-106 [facility] Comment on above: Result Comment: Dr Kyle prabhakar FollowedInsulin GivenMANAGEMENT OF PATIENT CARE PER NURSING PROTOCOL Performed By: #### L 501.080 ####[facility] [address] [place], [address] FINGERSTICK GLU 339 mg/dL High -106 [facility] Comment on above: Result Comment: Dr Kyle prabhakar FollowedInsulin GivenMANAGEMENT OF PATIENT CARE PER NURSING PROTOCOL Performed By: #### L 501.080 ####[facility] [address] [place], [address] FINGERSTICK GLU 366 mg/dL High -[address] [place] [address] Comment on above: Result Comment: SHLELY GEMENT OF PATIENT CARE PER NURSING PROTOCOL Performed By: #### L 501.080 ####[facility] [address] [place], [address] Beta-Hydroxbytyrateon 2024 BETA-HYDROXYBUT 8.3 mmol/L High 0.0-0.3 [facility] Comment on above: Performed By: #### L 501.6901 ####[facility] [address] [place], [address] Beta-hydroxybutyrateOrdered By: Shivani Mcrae on 06-02-2025 Beta hydroxybutyrate [Mass/Vol] 8.3 mmol/L High 0.0-0.3 [facility] Blood Gases by CPSon 025 Base excess Calc (Bld) [Moles/Vol] -14 mmol/L Low -2 to +2 [facility] Comment on above: Performed By: #### L 9000.0800 ####[facility] [address] [place], [address] Blood Gas Type ART Normal [facility] Comment on above: Performed By: #### L 8999.08 ####[facility] [address] [place], [address] CO2 [Moles/Vol] 18 mmol/L Normal [facility] Comment on above: Performed By: #### L 8999.0800 ####[facility] [address] [place], [address] FI02 3.0 Normal [facility] Comment on above: Performed By: #### L 8999.0800 ####[facility] [address] [place], [address] HCO3 (Bld) [Moles/Vol] 16.1 mmol/L Low 22-26 [facility] Comment on above: Performed By: #### L 8999.08 ####[facility] [address] [place], [address] Mode Not entered Normal [facility] Comment on above: Performed By: #### L 8999.0800 ####[facility] [address] [place], [address] O2 Delivery Dev Cannula Normal [facility] Comment on above: Performed By: #### L 8999.08 ####[facility] [address] [place], [address] pCO2 56.7 mmHg High 35-45 [facility] Comment on above: Performed By: #### L 8999.08 ####[facility] [address] [place], [address] pH (Bld) 7.06 [pH] Invalid Interpretation Code 7.35-7.45 [facility] Comment on above: Performed By: #### L 8999.0800 ####[facility] [address] [place], [address] PO2 78 mmHG Normal 75-100 [facility] Comment on above: Performed By: #### L 9000.0800 ####[facility] [address] [place], [address] Read Back By Yes Normal [facility] Comment on above: Performed By: #### L 9000.0800 ####[facility] [address] [place], [address] Results To po [facility] Comment on above: Performed By: #### L 9000.0800 ####[facility] [address] [place], [address] SITE L Brach Normal [facility] Comment on above: Performed By: #### L 9000.0800 ####[facility] [address] [place], [address] SO2 88 Low 95-99 [facility] Comment on above: Performed By: #### L 9000.0800 ####[facility] [address] [place], [address] Time Given 07:47:39 [facility] Comment on above: Performed By: #### L 9000.0800 ####[facility] [address] [place], [address] Blood base excess determinat ionOrdered By: Stacy Fontenot on 06-02-2025 Base excess Calc (BldV) [Moles/Vol] -14 mmol/L Low -2-2 [facility] Blood bicarbonate measuremen tOrdered By: Stacy Fontenot on 06-02-2025 HCO3 (Bld) [Moles/Vol] 16.1 mmol/L Low 22-26 [facility] CBC W/Diff, Automatedon 07-3 Absolute Lymph 0.44 X10 3/uL Low 0.83-4.51 [facility] Comment on above: Performed By: #### L 500.2500, L100.0100 ####[facility] [address] [place], [address] Absolute Neut 6.2 X10 3/uL Normal 2.0-7.7 [facility] Comment on above: Performed By: #### L 500.2500, L100.0100 ####[facility] [address] [place], [address] Basophils/100 WBC (Bld) 0.1 % Normal 0-1 [facility] Comment on above: Performed By: #### L 500.2500, L100.0100 ####[facility] [address] [place], [address] Eosinophils/100 WBC (Bld) 0.7 % Normal 0-5 [facility] Comment on above: Performed By: #### L 500.2500, L100.0100 ####[facility] [address] [place], [address] Erythrocyte distribution width (RBC) [Ratio] 15.4 % High 11.6-14.6 [facility] Comment on above: Performed By: #### L 500.2500, L100.0100 ####[facility] [address] [place], [address] Hematocrit (Bld) [Volume fraction] 29.2 % Low 37-47 [facility] Comment on above: Performed By: #### L 500.2500, L100.0100 ####[facility] [address] [place], [address] Hemoglobin (Bld) [Mass/Vol] 8.4 g/dL Low 12.0-15.0 [facility] Comment on above: Performed By: #### L 500.2500, L100.0100 ####[facility] [address] [place], [address] IG% 0.500 Normal 0.0-0.9 [facility] Comment on above: Result Comment: IG% - Immature Granulocytes (promyelocytes, myelocytes andmetamyelocytes) > 1% indicates that a LEFT SHIFT is Present. Performed By: #### L 500.2500, L100.0100 ####[facility] [address] [place], [address] Lymphocytes/100 WBC (Bld) 6.0 % Low 19-41 [facility] Comment on above: Performed By: #### L 500.2500, L100.0100 ####[facility] [address] [place], [address] MCH (RBC) [Entitic mass] 28.5 pg Normal 27.0-32.0 [facility] Comment on above: Performed By: #### L 500.2500, L100.0100 ####[facility] [address] [place], [address] MCHC (RBC) [Mass/Vol] 28.8 g/dL Low 32-36 [facility] Comment on above: Performed By: #### L 500.2500, L100.0100 ####[facility] [address] [place], [address] MCV (RBC) [Entitic vol] 99.0 fL Normal 81-99 [facility] Comment on above: Performed By: #### L 500.2500, L100.0100 ####[facility] [address] [place], [address] Monocytes/100 WBC (Bld) 8.0 % Normal 0-10 [facility] Comment on above: Performed By: #### L 500.2500, L100.0100 ####[facility] [address] [place], [address] Neutrophils/100 WBC (Bld) 84.7 % High 47-70 [facility] Comment on above: Performed By: #### L 500.2500, L100.0100 ####[facility] [address] [place], [address] Nucleated RBC (Bld) [#/Vol] 0.5 10*3/uL Normal 0-5 [facility] Comment on above: Performed By: #### L 500.2500, L100.0100 ####[facility] [address] [place], [address] Platelet mean volume (Bld) [Entitic vol] 9.9 fL Normal 6.2-12.0 [facility] Comment on above: Performed By: #### L 500.2500, L100.0100 ####[facility] [address] [place], [address] Platelets (Bld) [#/Vol] 237 10*3/uL Normal 150-450 [facility] Comment on above: Performed By: #### L 500.2500, L100.0100 ####[facility] [address] [place], [address] RBC (Bld) [#/Vol] 2.95 10*6/uL Low 4.2-5.4 [facility] Comment on above: Performed By: #### L 500.2500, L100.0100 ####[facility] [address] [place], [address] RDW SD 53.7 fl High 35.1-43.9 [facility] Comment on above: Performed By: #### L 500.2500, L100.0100 ####[facility] [address] [place], [address] WBC (Bld) [#/Vol] 7.3 10*3/uL Normal 4.4-11.0 [facility] Comment on above: Performed By: #### L 500.2500, L100.0100 ####[facility] [address] [place], [address] CO2 (BldV) [Moles/Vol]Ordere d By: Shivani Mcrae on 06-02-2025 CO2 [Moles/Vol] 15 mmol/L Low 23-33 [facility] Carbon dioxide, total [Moles /volume] in Central venous bloodOrdered By: Shivani Mcrae on 06-02-2025 CO2 [Moles/Vol] 11.6 mmol/L Low 21.0-32.0 [facility] Chest 1 View (Portable)on Chest 1 View (Portable) Normal [facility] Chloride assayOrdered By: Wesley Mcrae on 06-02-2025 Chloride [Moles/Vol] 93 mmol/L Low 98-108 [facility] Emergency Department Summary on 06-02-2025 Emergency Department Summary Normal [facility] Eosinophil percentageOrdered By: Shivani Mcrae on 06-02-2025 Eosinophils/100 WBC (Bld) 0.7 % 0-5 [facility] Erythrocyte distribution wid th ratioOrdered By: Shivani Mcrae on 06-02-2025 Erythrocyte distribution width (RBC) [Ratio] 15.4 % High 11.6-14.6 [facility] Erythrocyte distribution wid th standard deviationOrdered By: Shivani Mcrae on 06-02-2025 Erythrocyte distribution width (RBC) [Ratio] 53.7 fl High 35.1-43.9 [facility] Glomerular filtration rate ( GFR) estimation/1.73 sq m using serum, plasma, or whole bOrdered By: Shivani Mcrae on 06-02-2025 GFR/1.73 sq M.predicted among non-blacks MDRD (S/P/Bld) [Vol rate/Area] 12 mL/min/{1.73_m2} Low >60 [facility] Glucose measurement at bedsi deOrdered By: Shivani Mcrae on 06-02-2025 Glucose [Mass/Vol] 366 mg/dL High 74-106 [facility] Hematocrit Auto (Bld) [Volum e fraction]Ordered By: Shivani Mcrae on 06-02-2025 Hematocrit (Bld) [Volume fraction] 29.2 % Low 37-47 [facility] Hemoglobin measurementOrdere d By: Shivani Mcrae on 06-02-2025 Hemoglobin (Bld) [Mass/Vol] 8.4 g/dL Low 12.0-15.0 [facility] Immature granulocytes/100 WB C Auto (Bld)Ordered By: Shivani Mcrae on 06-02-2025 Immature granulocytes/100 WBC (Bld) 0.500 % 0.0-0.9 [facility] Lactic Acidon 06-02-2025 Lactate [Moles/Vol] 1.3 mmol/L Normal 0.0-2.0 [facility] Comment on above: Order Comment: Y Performed By: #### L 503.6005 ####[facility] [address] [place], [place], [address] MCV (mean corpuscular volume ) determinationOrdered By: Shivani Mcrae on 06-02-2025 MCV (RBC) [Entitic vol] 99.0 fL 81-99 [facility] Magnesiumon 06-02-2025 Magnesium [Mass/Vol] 2.3 mg/dL High 1.5-2.2 [facility] Comment on above: Performed By: #### L 500.2500, L501.5200, L501.2300 ####[facility] [address] [place], [place], [address] Mean corpuscular hemoglobin (MCH) determinationOrdered By: Shivani Mcrae on 06-02-2025 MCH (RBC) [Entitic mass] 28.5 pg 27.0-32.0 [facility] Measurement, pHOrdered By: Familia Fontenot on 06-02-2025 pH (Unsp spec) 7.06 [pH] Low 7.35-7.45 [facility] Monocyte percentageOrdered B y: Shivani Mcrae on 06-02-2025 Monocytes/100 WBC (Bld) 8.0 % 0-10 [facility] Neutrophil percentageOrdered By: Shivani Mcrae on 06-02-2025 Neutrophils/100 WBC (Bld) 84.7 % High 47-70 [facility] No Panel InformationOrdered By: Stacy oFntenot on 06-02-2025 ART [facility] L Brach [facility] Not entered [facility] Cannula [facility] 07:47:39 [facility] po [facility] Yes [facility] No Panel InformationOrdered By: Shivani Mcrae on 06-02-2025 bipap 14. 6. 40% [facility] Phosphoruson 06-02-2025 Phosphate [Mass/Vol] 6.7 mg/dL High 2.7-4.5 [facility] Comment on above: Performed By: #### L 500.2500, L501.5200, L501.2300 ####[facility] [address] [place], [address] Platelet countOrdered By: Wesley Mcrae on 06-02-2025 Platelets (Bld) [#/Vol] 237 10*3/uL 150-450 [facility] Potassiumon 06-02-2025 Potassium [Moles/Vol] 6.2 mmol/L Invalid Interpretation Code 3.3-5.1 [facility] Comment on above: Result Comment: Crit ical Result(s) Called at:0600 by:??FREDDIE HAVEN TO LEXISCHAFER Results read back by same. Performed By: #### L 501.5600 ####[facility] [address] [place], [address] Potassium measurement (mass/ volume)Ordered By: Shivani Mcrae on 06-02-2025 Potassium (Unsp spec) [Mass/Vol] 6.2 mmol/L High 3.3-5.1 [facility] RBC Auto (Bld) [#/Vol]Ordere d By: Shivani Mcrae on 06-02-2025 RBC (Bld) [#/Vol] 2.95 10*6/uL Low 4.2-5.4 [facility] Serum creatinine measurement (mass/volume)Ordered By: Shivani Mcrae on 06-02-2025 Creatinine [Mass/Vol] 3.92 mg/dL High 0.70-1.20 [facility] Serum glucose measurement (m ass/volume)Ordered By: Shivani Mcrae on 06-02-2025 Glucose [Mass/Vol] 366 mg/dL High 70-99 [facility] Serum or plasma calcium lesly urement (mass/volume)Ordered By: Shivani Mcrae on 06-02-2025 Calcium [Mass/Vol] 8.3 mg/dL 7.6-11.0 [facility] Serum or plasma urea nitroge n measurement (mass/volume)Ordered By: Shivani Mcrae on 06-02-2025 Urea nitrogen [Mass/Vol] 59 mg/dL High 4-19 [facility] Sodium levelOrdered By: Juan Mcrae on 06-02-2025 Sodium [Moles/Vol] 132 mmol/L Low 133-145 [facility] Total carbon dioxide measure mentOrdered By: Stacy Fontento on 06-02-2025 CO2 [Moles/Vol] 18 mmol/L [facility] Venous Blood Gason Blood Gas Type ROHIT Normal [facility] Comment on above: Performed By: #### L 900.0810 ####[facility] [address] [place], [address] CO2 [Moles/Vol] 15 mmol/L Low 23-33 [facility] Comment on above: Performed By: #### L 0.0810 ####[facility] [address] [place], [address] Comment bipap 14. 6. 40% Normal [facility] Comment on above: Performed By: #### L 9000.0810 ####[facility] [address] [place], [address] FI02 40.0 Normal [facility] Comment on above: Performed By: #### L 900.0810 ####[facility] [address] [place], [address] HCO3 (Bld) [Moles/Vol] 14 mmol/L Low 22-26 [facility] Comment on above: Performed By: #### L 0.0810 ####[facility] [address] [place], [address] O2 Delivery Dev BiPAP Normal [facility] Comment on above: Performed By: #### L 9000.0810 ####[facility] [address] [place], [address] Read Back By Yes Normal [facility] Comment on above: Performed By: #### L 900.0810 ####[facility] [address] [place], [address] Results To [facility] Comment on above: Performed By: #### L 900.0810 ####[facility] [address] [place], [address] SITE Not entered [facility] Comment on above: Performed By: #### L 900.0810 ####[facility] [address] [place], [address] Time Given 04:56:57 [facility] Comment on above: Performed By: #### L 900.0810 ####[facility] [address] [place], [address] VBG BE -16 mmol/L Low -1.0-3.5 [facility] Comment on above: Performed By: #### L 900.0810 ####[facility] [address] [place], [address] VBG pCO2 47.5 mmHg Normal 41-51 [facility] Comment on above: Performed By: #### L 900.0810 ####[facility] [address] [place], [address] VBG pH 7.07 Invalid Interpretation Code 7.32-7.42 [facility] Comment on above: Performed By: #### L 900.0810 ####[facility] [address] [place], [address] VBG PO2 102 mmHg High 25-40 [facility] Comment on above: Performed By: #### L 9000.0810 ####[facility] [address] [place], [address] VBG SO2 95 High 50-70 [facility] Comment on above: Performed By: #### L 9000.0810 ####[facility] [address] [place], [address] Venous blood base excess allyn surementOrdered By: Shivani Mcrae on 06-02-2025 Base excess Calc (BldV) [Moles/Vol] -16 mmol/L Low -1.0-3.5 [facility] Venous blood bicarbonate allyn surementOrdered By: Shivani Mcrae on 06-02-2025 HCO3 (Bld) [Moles/Vol] 14 mmol/L Low 22-26 [facility] Venous blood pH measurementO rdered By: Shivani Mcrae on 06-02-2025 pH (BldV) 7.07 [pH] Low 7.32-7.42 [facility] Venous blood partial pressur e of carbon dioxide measurementOrdered By: Shivani Mcrae on 06-02-2025 CO2 (BldV) [Partial pressure] 47.5 mm[Hg] 41-51 [facility] Venous blood partial pressur e of oxygen measurementOrdered By: Shivani Mcrae on 06-02-2025 Oxygen (BldV) [Partial pressure] 102 mm[Hg] High 25-40 [facility] White blood cell (WBC) count Ordered By: Shivani Mcrae on 06-02-2025 WBC (Bld) [#/Vol] 7.3 10*3/uL 4.4-11.0 [facility] 12 Lead EKGon 06-01-2025 12 Lead EKG Normal [facility] Anion gap in Serum or Plasma Ordered By: Stacy Fontenot on 06-01-2025 Anion gap [Moles/Vol] 18 mmol/L High 5-15 [facility] BUN/creatinine ratioOrdered By: Stacy Fontenot on 06-01-2025 Urea nitrogen/Creatinine [Mass ratio] 15.2 mg/mg - [facility] Basic Metabolic Profile (BMP )on 06-01-2025 BUN/CRE 15.2 RATIO Normal 08-22 [facility] Comment on above: Performed By: #### L 100.0500, L500.2500 ####[facility] [address] [place], [address] Calcium [Mass/Vol] 8.3 mg/dL Normal 7.6-11.0 [facility] Comment on above: Performed By: #### L 100.0500, L500.2500 ####[facility] [address] [place], [address] Chloride [Moles/Vol] 93 mmol/L Low 98-108 [facility] Comment on above: Performed By: #### L 100.0500, L500.2500 ####[facility] [address] [place], [address] CO2 [Moles/Vol] 19.7 mmol/L Low 21.0-32.0 [facility] Comment on above: Performed By: #### L 100.0500, L500.2500 ####[facility] [address] [place], [address] Creatinine [Mass/Vol] 4.58 mg/dL High 0.70-1.20 [facility] Comment on above: Performed By: #### L 100.0500, L500.2500 ####[facility] [address] [place], [address] ECRCL 9.03 ml/min Invalid Interpretation Code 50-250 [facility] Comment on above: Performed By: #### L 100.0500, L500.2500 ####[facility] [address] [place], [address] GAP 18 High 5-15 [facility] Comment on above: Performed By: #### L 100.0500, L500.2500 ####[facility] [address] [place], [address] GFR/1.73 sq M.predicted among non-blacks MDRD (S/P/Bld) [Vol rate/Area] 10 mL/min/{1.73_m2} Low >60 [facility] Comment on above: Result Comment: mL/m in/1.73m2 CKD-EPI Creatinine Equation (2020) Performed By: #### L 100.0500, L500.2500 ####[facility] [address] [place], [address] Glucose [Mass/Vol] 255 mg/dL High 70-99 [facility] Comment on above: Performed By: #### L 100.0500, L500.2500 ####[facility] [address] [place], [address] Potassium [Moles/Vol] 4.5 mmol/L Normal 3.3-5.1 [facility] Comment on above: Performed By: #### L 100.0500, L500.2500 ####[facility] [address] [place], [address] Sodium [Moles/Vol] 131 mmol/L Low 133-145 [facility] Comment on above: Performed By: #### L 100.0500, L500.2500 ####[facility] [address] [place], [address] Urea nitrogen [Mass/Vol] 70 mg/dL High 4-19 [facility] Comment on above: Performed By: #### L 100.0500, L500.2500 ####[facility] [address] [place], [address] Bedside Glucoseon 06-01-2025 FINGERSTICK GLU 274 mg/dL High 74-106 [facility] Comment on above: Result Comment: SHELLY ENGEL OF PATIENT CARE PER NURSING PROTOCOL Performed By: #### L 501.080 ####[facility] [address] [place], [address] FINGERSTICK GLU 233 mg/dL High 74-106 [facility] Comment on above: Result Comment: SHELLY ENGEL OF PATIENT CARE PER NURSING PROTOCOL Performed By: #### L 501.080 ####[facility] [address] [place], [address] CBC-Complete Blood Cnt No Di ffon 06-01-2025 Erythrocyte distribution width (RBC) [Ratio] 14.6 % Normal 11.6-14.6 [facility] Comment on above: Performed By: #### L 100.0500, L500.2500 ####[facility] [address] [place], [address] Hematocrit (Bld) [Volume fraction] 31.1 % Low 37-47 [facility] Comment on above: Performed By: #### L 100.0500, L500.2500 ####[facility] [address] [place], [address] Hemoglobin (Bld) [Mass/Vol] 9.4 g/dL Low 12.0-15.0 [facility] Comment on above: Performed By: #### L 100.0500, L500.2500 ####[facility] [address] [place], [address] MCH (RBC) [Entitic mass] 28.2 pg Normal 27.0-32.0 [facility] Comment on above: Performed By: #### L 100.0500, L500.2500 ####[facility] [address] [place], [address] MCHC (RBC) [Mass/Vol] 30.2 g/dL Low 32-36 [facility] Comment on above: Performed By: #### L 100.0500, L500.2500 ####[facility] [address] [place], [address] MCV (RBC) [Entitic vol] 93.4 fL Normal 81-99 [facility] Comment on above: Performed By: #### L 100.0500, L500.2500 ####[facility] [address] [place], [address] Platelet mean volume (Bld) [Entitic vol] 10.0 fL Normal 6.2-12.0 [facility] Comment on above: Performed By: #### L 100.0500, L500.2500 ####[facility] [address] [place], [address] Platelets (Bld) [#/Vol] 202 10*3/uL Normal 150-450 [facility] Comment on above: Performed By: #### L 100.0500, L500.2500 ####[facility] [address] [place], [address] RBC (Bld) [#/Vol] 3.33 10*6/uL Low 4.2-5.4 [facility] Comment on above: Performed By: #### L 100.0500, L500.2500 ####[facility] [address] [place], [address] RDW SD 48.6 fl High 35.1-43.9 [facility] Comment on above: Performed By: #### L 100.0500, L500.2500 ####[facility] [address] [place], [address] WBC (Bld) [#/Vol] 5.4 10*3/uL Normal 4.4-11.0 [facility] Comment on above: Performed By: #### L 100.0500, L500.2500 ####[facility] [address] [place], [address] Carbon dioxide, total [Moles /volume] in Central venous bloodOrdered By: Stacy Fontenot on 06-01-2025 CO2 [Moles/Vol] 19.7 mmol/L Low 21.0-32.0 [facility] Chloride assayOrdered By: Marisol Fontenot on 06-01-2025 Chloride [Moles/Vol] 93 mmol/L Low 98-108 [facility] Erythrocyte distribution wid th ratioOrdered By: Stacy Fontenot on 06-01-2025 Erythrocyte distribution width (RBC) [Ratio] 14.6 % 11.6-14.6 [facility] Erythrocyte distribution wid th standard deviationOrdered By: Stacy Fontenot on 06-01-2025 Erythrocyte distribution width (RBC) [Ratio] 48.6 fl High 35.1-43.9 [facility] Glomerular filtration rate ( GFR) estimation/1.73 sq m using serum, plasma, or whole bOrdered By: Stacy Fontenot on 06-01-2025 GFR/1.73 sq M.predicted among non-blacks MDRD (S/P/Bld) [Vol rate/Area] 10 mL/min/{1.73_m2} Low >60 [facility] deOrdered By: Stacy Fontenot on 06-01-2025 Glucose [Mass/Vol] 274 mg/dL High 74-106 [facility] Hematocrit Auto (Bld) [Volum e fraction]Ordered By: Stacy Fontenot on 06-01-2025 Hematocrit (Bld) [Volume fraction] 31.1 % Low 37-47 [facility] Hemoglobin A1con 06-01-2025 HbA1c (Bld) [Mass fraction] 5.9 % High <=5.6 [facility] Comment on above: Result Comment: Norm al < 5.7 % Prediabetic 5.7 - 6.4 % Diabetic >or= 6.5 % Please note range changes. Performed By: #### L 471.3741 ####[facility] [address] [place], [place], [id number] Hemoglobin A1c percentageOrd ered By: Favian [place] on 06-01-2025 HbA1c (Bld) [Mass fraction] 5.9 % High <5.7 [facility] Hemoglobin measurementOrdere d By: Stacy Fontenot on 06-01-2025 Hemoglobin (Bld) [Mass/Vol] 9.4 g/dL Low 12.0-15.0 [facility] MCV (mean corpuscular volume ) determinationOrdered By: Stacy Fontenot on 06-01-2025 MCV (RBC) [Entitic vol] 93.4 fL 81-99 [facility] Mean corpuscular hemoglobin (MCH) determinationOrdered By: Stacy Fontenot on 06-01-2025 MCH (RBC) [Entitic mass] 28.2 pg 27.0-32.0 [facility] Operative Reporton Operative Report Normal [facility] Platelet countOrdered By: Marisol Fontenot on 06-01-2025 Platelets (Bld) [#/Vol] 202 10*3/uL 150-450 [facility] Potassium measurement (mass/ volume)Ordered By: Stacy Fontenot on 06-01-2025 Potassium (Unsp spec) [Mass/Vol] 4.5 mmol/L 3.3-5.1 [facility] RBC Auto (Bld) [#/Vol]Ordere d By: Stacy Fontenot on 06-01-2025 RBC (Bld) [#/Vol] 3.33 10*6/uL Low 4.2-5.4 [facility] Serum creatinine measurement (mass/volume)Ordered By: Stacy Fontenot on 06-01-2025 Creatinine [Mass/Vol] 4.58 mg/dL High 0.70-1.20 [facility] Serum glucose measurement (m ass/volume)Ordered By: Stacy Fontenot on 06-01-2025 Glucose [Mass/Vol] 255 mg/dL High 70-99 [facility] Serum or plasma calcium lesly urement (mass/volume)Ordered By: Stacy Fontenot on 06-01-2025 Calcium [Mass/Vol] 8.3 mg/dL 7.6-11.0 [facility] Serum or plasma urea nitroge n measurement (mass/volume)Ordered By: Stacy Fontenot on 06-01-2025 Urea nitrogen [Mass/Vol] 70 mg/dL High 4-19 [facility] Sodium levelOrdered By: Veronica Fontenot on 06-01-2025 Sodium [Moles/Vol] 131 mmol/L Low 133-145 [facility] White blood cell (WBC) count Ordered By: Stacy Fontenot on 06-01-2025 WBC (Bld) [#/Vol] 5.4 10*3/uL 4.4-11.0 [facility] Absolute lymphocyte countOrd ered By: Stacy Fontenot on 05-31-2025 Lymphocytes Auto (Unsp spec) [#/Vol] 0.71 10*3/uL Low 0.83-4.51 [facility] Automated lymphocyte count a s percentage of total leukocytesOrdered By: Stacy Fontenot on 05-31-2025 Lymphocytes/100 WBC Auto (Unsp spec) 15.5 % Low 19-41 [facility] Basic Metabolic Profile (BMP )on 05-31-2025 BUN/CRE 15.5 RATIO Normal 10-20 [facility] Comment on above: Performed By: #### L 501.2300, L500.2500, L100.0100, L501.5200 ####[facility] [address] [place], [address] Calcium [Mass/Vol] 8.5 mg/dL Normal 7.6-11.0 [facility] Comment on above: Performed By: #### L 501.2300, L500.2500, L100.0100, L501.5200 ####[facility] [address] [place], [address] Chloride [Moles/Vol] 95 mmol/L Low 98-108 [facility] Comment on above: Performed By: #### L 501.2300, L500.2500, L100.0100, L501.5200 ####[facility] [address] [place], [address] CO2 [Moles/Vol] 22.1 mmol/L Normal 21.0-32.0 [facility] Comment on above: Performed By: #### L 501.2300, L500.2500, L100.0100, L501.5200 ####[facility] [address] [place], [address] Creatinine [Mass/Vol] 3.48 mg/dL High 0.70-1.20 [facility] Comment on above: Performed By: #### L 501.2300, L500.2500, L100.0100, L501.5200 ####[facility] [address] [place], [address] ECRCL 11.65 ml/min Low 50-250 [facility] Comment on above: Performed By: #### L 501.2300, L500.2500, L100.0100, L501.5200 ####[facility] [address] [place], [address] GAP 16 High 5-15 [facility] Comment on above: Performed By: #### L 501.2300, L500.2500, L100.0100, L501.5200 ####[facility] [address] [place], [address] GFR/1.73 sq M.predicted among non-blacks MDRD (S/P/Bld) [Vol rate/Area] 14 mL/min/{1.73_m2} Low >60 [facility] Comment on above: Result Comment: mL/m in/1.73m2 CKD-EPI Creatinine Equation (2020) Performed By: #### L 501.2300, L500.2500, L100.0100, L501.5200 ####[facility] [address] [place], [address] Glucose [Mass/Vol] 265 mg/dL High 70-99 [facility] Comment on above: Performed By: #### L 501.2300, L500.2500, L100.0100, L501.5200 ####[facility] [address] [place], [address] Potassium [Moles/Vol] 5.1 mmol/L Normal 3.3-5.1 [facility] Comment on above: Performed By: #### L 501.2300, L500.2500, L100.0100, L501.5200 ####[facility] [address] [place], [address] Sodium [Moles/Vol] 133 mmol/L Normal 133-145 [facility] Comment on above: Performed By: #### L 501.2300, L500.2500, L100.0100, L501.5200 ####[facility] [address] [place], [address] Urea nitrogen [Mass/Vol] 54 mg/dL High 4-19 [facility] Comment on above: Performed By: #### L 501.2300, L500.2500, L100.0100, L501.5200 ####[facility] [address] [place], [address] Basophil percentageOrdered B y: Stacy Fontenot on 05-31-2025 Basophils/100 WBC (Bld) 0.4 % 0-1 [facility] Bedside Glucoseon 05-31-2025 FINGERSTICK GLU 270 mg/dL High 74-106 [facility] Comment on above: Result Comment: SHELLY GEMENT OF PATIENT CARE PER NURSING PROTOCOL Performed By: #### L 501.080 ####[facility] [address] [place], [address] FINGERSTICK GLU 318 mg/dL High 74-106 [facility] Comment on above: Result Comment: SHELLY GEMENT OF PATIENT CARE PER NURSING PROTOCOL Performed By: #### L 501.080 ####[facility] [address] [place], [address] FINGERSTICK GLU 276 mg/dL High 74-106 [facility] Comment on above: Result Comment: SHELLY GEMENT OF PATIENT CARE PER NURSING PROTOCOL Performed By: #### L 501.080 ####[facility] [address] [place], [address] FINGERSTICK GLU 275 mg/dL High 74-106 [facility] Comment on above: Result Comment: SHELLY GEMENT OF PATIENT CARE PER NURSING PROTOCOL Performed By: #### L 501.080 ####[facility] [address] [place], [address] FINGERSTICK GLU 226 mg/dL High [address] [facility] Comment on above: Result Comment: SHELLY GEMENT OF PATIENT CARE PER NURSING PROTOCOL Performed By: #### L 501.080 ####[facility] [address] [place], [address] FINGERSTICK GLU 264 mg/dL High 74-106 [facility] Comment on above: Result Comment: SHELLY GEMENT OF PATIENT CARE PER NURSING PROTOCOL Performed By: #### L 501.080 ####[facility] [address] [place], [address] FINGERSTICK GLU 187 mg/dL High [address] [place] [address] Comment on above: Result Comment: SHELLY GEMENT OF PATIENT CARE PER NURSING PROTOCOL Performed By: #### L 501.080 ####[facility] [address] [place], [address] CBC W/Diff, Automatedon 07-2 Absolute Lymph 0.71 X10 3/uL Low 0.83-4.51 [facility] Comment on above: Performed By: #### L 501.2300, L500.2500, L100.0100, L501.5200 ####[facility] [address] [place], [address] Absolute Neut 3.2 X10 3/uL Normal 2.0-7.7 [facility] Comment on above: Performed By: #### L 501.2300, L500.2500, L100.0100, L501.5200 ####[facility] [address] [place], [address] Basophils/100 WBC (Bld) 0.4 % Normal 0-1 [facility] Comment on above: Performed By: #### L 501.2300, L500.2500, L100.0100, L501.5200 ####[facility] [address] [place], [address] Eosinophils/100 WBC (Bld) 3.9 % Normal 0-5 [facility] Comment on above: Performed By: #### L 501.2300, L500.2500, L100.0100, L501.5200 ####[facility] [address] [place], [address] Erythrocyte distribution width (RBC) [Ratio] 15.1 % High 11.6-14.6 [facility] Comment on above: Performed By: #### L 501.2300, L500.2500, L100.0100, L501.5200 ####[facility] [address] [place], [address] Hematocrit (Bld) [Volume fraction] 31.6 % Low 37-47 [facility] Comment on above: Performed By: #### L 501.2300, L500.2500, L100.0100, L501.5200 ####[facility] [address] [place], [address] Hemoglobin (Bld) [Mass/Vol] 9.4 g/dL Low 12.0-15.0 [facility] Comment on above: Performed By: #### L 501.2300, L500.2500, L100.0100, L501.5200 ####[facility] [address] [place], [address] IG% 0.700 Normal 0.0-0.9 [facility] Comment on above: Result Comment: IG% - Immature Granulocytes (promyelocytes, myelocytes andmetamyelocytes) > 1% indicates that a LEFT SHIFT is Present. Performed By: #### L 501.2300, L500.2500, L100.0100, L501.5200 ####[facility] [address] [place], [address] Lymphocytes/100 WBC (Bld) 15.5 % Low 19-41 [facility] Comment on above: Performed By: #### L 501.2300, L500.2500, L100.0100, L501.5200 ####[facility] [address] [place], [address] MCH (RBC) [Entitic mass] 28.6 pg Normal 27.0-32.0 [facility] Comment on above: Performed By: #### L 501.2300, L500.2500, L100.0100, L501.5200 ####[facility] [address] [place], [address] MCHC (RBC) [Mass/Vol] 29.7 g/dL Low 32-36 [facility] Comment on above: Performed By: #### L 501.2300, L500.2500, L100.0100, L501.5200 ####[facility] [address] [place], [address] MCV (RBC) [Entitic vol] 96.0 fL Normal 81-99 [facility] Comment on above: Performed By: #### L 501.2300, L500.2500, L100.0100, L501.5200 ####[facility] [address] [place], [address] Monocytes/100 WBC (Bld) 9.6 % Normal 0-10 [facility] Comment on above: Performed By: #### L 501.2300, L500.2500, L100.0100, L501.5200 ####[facility] [address] [place], [address] Neutrophils/100 WBC (Bld) 69.9 % Normal 47-70 [facility] Comment on above: Performed By: #### L 501.2300, L500.2500, L100.0100, L501.5200 ####[facility] [address] [place], [address] Nucleated RBC (Bld) [#/Vol] 0 10*3/uL Normal 0-5 [facility] Comment on above: Performed By: #### L 501.2300, L500.2500, L100.0100, L501.5200 ####[facility] [address] [place], [address] Platelet mean volume (Bld) [Entitic vol] 9.1 fL Normal 6.2-12.0 [facility] Comment on above: Performed By: #### L 501.2300, L500.2500, L100.0100, L501.5200 ####[facility] [address] [place], [address] Platelets (Bld) [#/Vol] 169 10*3/uL Normal 150-450 [facility] Comment on above: Performed By: #### L 501.2300, L500.2500, L100.0100, L501.5200 ####[facility] [address] [place], [address] RBC (Bld) [#/Vol] 3.29 10*6/uL Low 4.2-5.4 [facility] Comment on above: Performed By: #### L 501.2300, L500.2500, L100.0100, L501.5200 ####[facility] [address] [place], [address] RDW SD 52.3 fl High 35.1-43.9 [facility] Comment on above: Performed By: #### L 501.2300, L500.2500, L100.0100, L501.5200 ####[facility] [address] [place], [address] WBC (Bld) [#/Vol] 4.6 10*3/uL Normal 4.4-11.0 [facility] Comment on above: Performed By: #### L 501.2300, L500.2500, L100.0100, L501.5200 ####[facility] [address] [place], [address] Eosinophil percentageOrdered By: Stacy Fontenot on 05-31-2025 Eosinophils/100 WBC (Bld) 3.9 % 0-5 [facility] Immature granulocytes/100 WB C Auto (Bld)Ordered By: Stacy Fontenot on 05-31-2025 Immature granulocytes/100 WBC (Bld) 0.700 % 0.0-0.9 [facility] Magnesiumon 05-31-2025 Magnesium [Mass/Vol] 2.2 mg/dL Normal 1.5-2.2 [facility] Comment on above: Performed By: #### L 501.2300, L500.2500, L100.0100, L501.5200 ####[facility] [address] [place], [place], [id number] Magnesium measurement (mass/ volume)Ordered By: Stacy Fontenot on 05-31-2025 Magnesium (Unsp spec) [Mass/Vol] 2.2 mg/dL 1.5-2.2 [facility] Monocyte percentageOrdered B y: Stacy Fontenot on 05-31-2025 Monocytes/100 WBC (Bld) 9.6 % 0-10 [facility] Neutrophil percentageOrdered By: Stacy Fontenot on 05-31-2025 Neutrophils/100 WBC (Bld) 69.9 % 47-70 [facility] Phosphoruson 05-31-2025 Phosphate [Mass/Vol] 5.9 mg/dL High 2.7-4.5 [facility] Comment on above: Performed By: #### L 501.2300, L500.2500, L100.0100, L501.5200 ####[facility] [address] [place], [address] Arterial study reportOrdered By: Favian Sinclair on 05-30-2025 Noninvasive arteriosclerosis study report [facility] Work Phone: Bedside Glucoseon 05-30-2025 FINGERSTICK GLU 134 mg/dL High 74-106 [facility] Comment on above: Result Comment: SHELLY GEMENT OF PATIENT CARE PER NURSING PROTOCOL Performed By: #### L 501.080 ####[facility] [address] [place], [address] FINGERSTICK GLU 123 mg/dL High 74-106 [facility] Comment on above: Result Comment: SHELLY GEMENT OF PATIENT CARE PER NURSING PROTOCOL Performed By: #### L 501.080 ####[facility] [address] [place], [address] FINGERSTICK GLU 206 mg/dL High 74-106 [facility] Comment on above: Result Comment: SHELLY GEMENT OF PATIENT CARE PER NURSING PROTOCOL Performed By: #### L 501.080 ####[facility] [address] [place], [address] FINGERSTICK GLU 167 mg/dL High 74-106 [facility] Comment on above: Result Comment: SHELLY GEMENT OF PATIENT CARE PER NURSING PROTOCOL Performed By: #### L 501.080 ####[facility] [address] [place], [address] Bilirubin Test strip Ql (U)O rdered By: Stacy Fontenot on 05-30-2025 Bilirubin Ql (U) Negative Negative [facility] Blood Gases by CPSon 025 Base excess Calc (Bld) [Moles/Vol] 4 mmol/L High -2 to +2 [facility] Comment on above: Performed By: #### L 9000.0800 ####[facility] [address] [place], [address] Blood Gas Type ART Normal [facility] Comment on above: Performed By: #### L 9000.0800 ####[facility] [address] [place], [address] CO2 [Moles/Vol] 32 mmol/L Normal [facility] Comment on above: Performed By: #### L 8999.0800 ####[facility] [address] [place], [address] FI02 7.0 Normal [facility] Comment on above: Performed By: #### L 8999.0800 ####[facility] [address] [place], [address] HCO3 (Bld) [Moles/Vol] 30.2 mmol/L High 22-26 [facility] Comment on above: Performed By: #### L 8999.0800 ####[facility] [address] [place], [address] Mode Not entered [facility] Comment on above: Performed By: #### L 8999.0800 ####[facility] [address] [place], [address] O2 Delivery Dev Not entered [facility] Comment on above: Performed By: #### L 8999.0800 ####[facility] [address] [place], [address] pCO2 60.3 mmHg High 35-45 [facility] Comment on above: Performed By: #### L 9000.0800 ####[facility] [address] [place], [address] pH (Bld) 7.31 [pH] Low 7.35-7.45 [facility] Comment on above: Performed By: #### L 9000.0800 ####[facility] [address] [place], [address] PO2 80 mmHG Normal 75-100 [facility] Comment on above: Performed By: #### L 0.0800 ####[facility] [address] [place], [address] SITE Not entered Normal [facility] Comment on above: Performed By: #### L 8999.0800 ####[facility] [address] [place], [address] SO2 94 Low 95-99 [facility] Comment on above: Performed By: #### L 8999.0800 ####[facility] [address] [place], [address] Base excess Calc (Bld) [Moles/Vol] 0 mmol/L Normal -2 to +2 [facility] Comment on above: Performed By: #### L 8999.0800 ####[facility] [address] [place], [address] Blood Gas Type ART Normal [facility] Comment on above: Performed By: #### L 8999.0800 ####[facility] [address] [place], [address] CO2 [Moles/Vol] 30 mmol/L Normal [facility] Comment on above: Performed By: #### L 8999.0800 ####[facility] [address] [place], [address] FI02 3.0 Normal [facility] Comment on above: Performed By: #### L 8999.0800 ####[facility] [address] [place], [address] HCO3 (Bld) [Moles/Vol] 27.9 mmol/L High 22-26 [facility] Comment on above: Performed By: #### L 8999.0800 ####[facility] [address] [place], [address] Mode Not entered Normal [facility] Comment on above: Performed By: #### L 8999.0800 ####[facility] [address] [place], [address] O2 Delivery Dev Not entered Normal [facility] Comment on above: Performed By: #### L 9000.0800 ####[facility] [address] [place], [address] pCO2 65.8 mmHg High 35-45 [facility] Comment on above: Performed By: #### L 9000.0800 ####[facility] [address] [place], [address] pH (Bld) 7.24 [pH] Low 7.35-7.45 [facility] Comment on above: Performed By: #### L 9000.0800 ####[facility] [address] [place], [address] PO2 83 mmHG Normal 75-100 [facility] Comment on above: Performed By: #### L 9000.0800 ####[facility] [address] [place], [address] SITE Not entered Normal [facility] Comment on above: Performed By: #### L 9000.0800 ####[facility] [address] [place], [address] SO2 93 Low 95-99 [facility] Comment on above: Performed By: #### L 9000.0800 ####[facility] [address] [place], [address] Blood base excess determinat ionOrdered By: Stacy Fontenot on 05-30-2025 Base excess Calc (BldV) [Moles/Vol] 4 mmol/L High -2-2 [facility] Blood bicarbonate measuremen tOrdered By: Stacy Fontenot on 05-30-2025 HCO3 (Bld) [Moles/Vol] 30.2 mmol/L High 22-26 [facility] CBC-Complete Blood Cnt No Di ffon 05-30-2025 Erythrocyte distribution width (RBC) [Ratio] 15.1 % High 11.6-14.6 [facility] Comment on above: Performed By: #### L 500.3600, L100.0500 ####[facility] [address] [place], [address] Hematocrit (Bld) [Volume fraction] 30.9 % Low 37-47 [facility] Comment on above: Performed By: #### L 500.3600, L100.0500 ####[facility] [address] [place], [address] Hemoglobin (Bld) [Mass/Vol] 9.2 g/dL Low 12.0-15.0 [facility] Comment on above: Performed By: #### L 500.3600, L100.0500 ####[facility] [address], [address] MCH (RBC) [Entitic mass] 27.8 pg Normal 27.0-32.0 [facility] Comment on above: Performed By: #### L 500.3600, L100.0500 ####[facility] [address] [place], [address] MCHC (RBC) [Mass/Vol] 29.8 g/dL Low 32-36 [facility] Comment on above: Performed By: #### L 500.3600, L100.0500 ####[facility] [address] [place], [address] MCV (RBC) [Entitic vol] 93.4 fL Normal 81-99 [facility] Comment on above: Performed By: #### L 500.3600, L100.0500 ####[facility] [address] [place], [address] Platelet mean volume (Bld) [Entitic vol] 9.8 fL Normal 6.2-12.0 [facility] Comment on above: Performed By: #### L 500.3600, L100.0500 ####[facility] [address] [place], [address] Platelets (Bld) [#/Vol] 207 10*3/uL Normal 150-450 [facility] Comment on above: Performed By: #### L 500.3600, L100.0500 ####[facility] [address] [place], [address] RBC (Bld) [#/Vol] 3.31 10*6/uL Low 4.2-5.4 [facility] Comment on above: Performed By: #### L 500.3600, L100.0500 ####[facility] [address] [place], [address] RDW SD 50.5 fl High 35.1-43.9 [facility] Comment on above: Performed By: #### L 500.3600, L100.0500 ####[facility] [address] [place], [address] WBC (Bld) [#/Vol] 5.8 10*3/uL Normal 4.4-11.0 [facility] Comment on above: Performed By: #### L 500.3600, L100.0500 ####[facility] [address] [place], [address] CRPon 05-30-2025 C-REACTIVE PROT 53.70 mg/L High 0.0-3.0 [facility] Comment on above: Performed By: #### L 501.6710, L101.9900 ####[facility] [address] [place], [address] Chest 1 View (Portable)on Chest 1 View (Portable) Normal [facility] Consultation - Surgicalon Consultation - Surgical Normal [facility] Electrocardiogram reportOrde red By: Salomon Robbins on 05-30-2025 EKG study [facility] Work Phone: Erythrocyte Sed Rateon 05-30 SED RATE 22 mm/hr Normal 0-30 [facility] Comment on above: Performed By: #### L 501.6710, L101.9900 ####[facility] [address] [place], [place], [address] Erythrocyte sedimentation ra teOrdered By: Stacy Fontenot on 05-30-2025 ESR (Bld) [Velocity] 22 mm/h 0-30 [facility] Ketones Test strip Ql (U)Ord ered By: Stacy Fontenot on 05-30-2025 Ketones Ql (U) Negative Negative [facility] M100.019on 05-30-2025 M100.019 Negative Normal [facility] Comment on above: Performed By: #### M 100.019, M100.638 ####[facility] [address] [place], [place], [address] Measurement, pHOrdered By: Familia Fontenot on 05-30-2025 pH (Unsp spec) 7.31 [pH] Low 7.35-7.45 [facility] Mucus LM Ql (Urine sed)Order ed By: Stacy Fontenot on 05-30-2025 Mucus Ql (Urine sed) 0 SEEN /hpf [facility] Natriuretic peptide.B prohor alex N-Terminal [Mass/volume] in Serum or PlasmaOrdered By: Christy Fontenot on 05-30-2025 Natriuretic peptide.B prohormone N-Terminal [Mass/Vol] > 58345 pg/mL High <900 [facility] Nitrite Test strip Ql (U)Ord ered By: Stacy Fontenot on 05-30-2025 Nitrite Ql (U) Negative Negative [facility] No Panel InformationOrdered By: Stacy Fontenot on 05-30-2025 ART [facility] Not entered [facility] Pro- Brain NATRIURETIC PEPTI Rinku 05-30-2025 proBNP > 01801 High <=900 [facility] Comment on above: Order Comment: DUPLI HARESH Result Comment: DUPL ICATEHeart Failure Unlikely: < 300 pg/mLHeart Failure Likely< 50 Years: > 450 pg/mL50-75 Years: > 900 pg/mL>75 Years: > 1800 pg/mL Performed By: #### L 503.7505 ####[facility] [address] [place], [address] Protein Test strip Ql (U)Ord ered By: Stacy Fontenot on 05-30-2025 Protein Ql (U) 500 mg/dl High Negative [facility] RESPIRATORY PANEL MOLECULARo n 05-30-2025 RP PANEL Normal [facility] Comment on above: Performed By: #### M 100.019, M100.638 ####[facility] [address] [place], [address] Renal Profileon 05-30-2025 Albumin [Mass/Vol] 3.5 g/dL Normal 3.4-4.8 [facility] Comment on above: Performed By: #### L 500.3600, L100.0500 ####[facility] [address] [place], [address] BUN/CRE 15.0 RATIO Normal 10-20 [facility] Comment on above: Performed By: #### L 500.3600, L100.0500 ####[facility] [address] [place], [address] Calcium [Mass/Vol] 8.7 mg/dL Normal 7.6-11.0 [facility] Comment on above: Performed By: #### L 500.3600, L100.0500 ####[facility] [address] [place], [address] Chloride [Moles/Vol] 102 mmol/L Normal 98-108 [facility] Comment on above: Performed By: #### L 500.3600, L100.0500 ####[facility] [address] [place], [address] CO2 [Moles/Vol] 26.9 mmol/L Normal 21.0-32.0 [facility] Comment on above: Performed By: #### L 500.3600, L100.0500 ####[facility] [address] [place], [address] Creatinine [Mass/Vol] 4.71 mg/dL High 0.70-1.20 [facility] Comment on above: Performed By: #### L 500.3600, L100.0500 ####[facility] [address] [place], [address] ECRCL 8.97 ml/min Invalid Interpretation Code 50-250 [facility] Comment on above: Performed By: #### L 500.3600, L100.0500 ####[facility] [address] [place], [address] GAP 11 Normal 5-15 [facility] Comment on above: Performed By: #### L 500.3600, L100.0500 ####[facility] [address] [place], [address] GFR/1.73 sq M.predicted among non-blacks MDRD (S/P/Bld) [Vol rate/Area] 10 mL/min/{1.73_m2} Low >60 [facility] Comment on above: Result Comment: mL/m in/1.73m2 CKD-EPI Creatinine Equation (2020) Performed By: #### L 500.3600, L100.0500 ####[facility] [address] [place], [address] Glucose [Mass/Vol] 203 mg/dL High 70-99 [facility] Comment on above: Performed By: #### L 500.3600, L100.0500 ####[facility] [address] [place], [address] Phosphate [Mass/Vol] 4.1 mg/dL Normal 2.7-4.5 [facility] Comment on above: Performed By: #### L 500.3600, L100.0500 ####[facility] [address], [address] Potassium [Moles/Vol] 4.8 mmol/L Normal 3.3-5.1 [facility] Comment on above: Performed By: #### L 500.3600, L100.0500 ####[facility] [address] [place], [address] Sodium [Moles/Vol] 140 mmol/L Normal 133-145 [facility] Comment on above: Performed By: #### L 500.3600, L100.0500 ####[facility] [address] [place], [address] Urea nitrogen [Mass/Vol] 71 mg/dL High 4-19 [facility] Comment on above: Performed By: #### L 500.3600, L100.0500 ####[facility] [address] [place], [address] Respiratory pathogens detect ion panel by molecular detection methodOrdered By: Stacy Fontenot on 05-30-2025 Respiratory pathogens DNA and RNA panel MARISA+probe (Resp) [facility] Ebhi-yjx-0Lzmaaqj By: Nate Fontenot on 05-30-2025 SARS-CoV-2 (COVID-19) RNA MARISA+probe Ql (Unsp spec) [facility] Serum or plasma C reactive p rotein measurement (mass/volume)Ordered By: Stacy Fontenot on 05-30-2025 CRP [Mass/Vol] 53.70 mg/L High 0.0-3.0 [facility] Serum or plasma albumin lesly urement (mass/volume)Ordered By: Christy Fontenot on 05-30-2025 Albumin [Mass/Vol] 3.5 g/dL 3.4-4.8 [facility] Squamous epithelial cells de tection in urine sediment by light microscopyOrdered By: Stacy Fontenot on 05-30-2025 Epithelial cells.squamous LM Ql (Urine sed) 0-5 SEEN /hpf 5-10 [facility] Total carbon dioxide measure mentOrdered By: Stacy Fontenot on 05-30-2025 CO2 [Moles/Vol] 32 mmol/L [facility] Urinalysis, Completeon 05-30 EPI,SQUAMOUS 0-5 SEEN Normal 5-10 [facility] Comment on above: Order Comment: Urine , Random Performed By: #### L 400.0001 ####[facility] [address] [place], [address] RBC 0-5 SEEN Normal 0-5 [facility] Comment on above: Order Comment: Urine , Random Performed By: #### L 400.0001 ####[facility] [address] [place], [address] WBC 0-5 SEEN Normal 0-5 [facility] Comment on above: Order Comment: Urine , Random Performed By: #### L 400.0001 ####[facility] [address] [place], [address] BACTERIA 0 SEEN Normal None Seen [facility] Comment on above: Order Comment: Urine , Random Performed By: #### L 400.0001 ####[facility] [address] [place], [address] Mucus Ql (Urine sed) 0 SEEN Normal [facility] Comment on above: Order Comment: Urine , Random Performed By: #### L 400.0001 ####[facility] [address] [place], [address] Urine clarityOrdered By: Layla Fontenot on 05-30-2025 Clarity (U) Clear Clear [facility] Urine color determinationOrd ered By: Stacy Fontenot on 05-30-2025 Color (U) Straw Yellow [facility] Urine glucose detectionOrder ed By: Stacy Fontenot on 05-30-2025 Glucose Ql (U) 100 mg/dl High Normal [facility] Urine leukocyte esterase det ection by dipstickOrdered By: Stacy Fontenot on 05-30-2025 Leukocyte esterase Test strip Ql (U) 25 /ul High Negative [facility] Urine pHOrdered By: Stacy Fontenot on 05-30-2025 pH (U) 6.0 [pH] 5.0 - 8.0 [facility] Urine sediment bacteria coun t by microscopy (number/high power field)Ordered By: Stacy Fontenot on 05-30-2025 Bacteria LM.HPF (Urine sed) [#/Area] 0 /[HPF] None Seen [facility] Urine specific gravity measu rementOrdered By: Stacy Fontenot on 05-30-2025 Specific gravity (U) [Rel density] 1.020 1.002-1.030 [facility] Urine urobilinogen measureme ntOrdered By: Stacy Fontenot on 05-30-2025 Urobilinogen Ql (U) Normal mg/dl Normal [facility] White blood cell countOrdere d By: Stacy Fontenot on 05-30-2025 White blood cell count 0-5 SEEN /hpf 0-5 [facility] Basic Metabolic Profile (BMP )on 05-29-2025 BUN/CRE 15.5 RATIO Normal 10-20 [facility] Comment on above: Performed By: #### L 500.2500 ####[facility] [address], [address] Calcium [Mass/Vol] 8.5 mg/dL Normal 7.6-11.0 [facility] Comment on above: Performed By: #### L 500.2500 ####[facility] [address] [place], [address] Chloride [Moles/Vol] 104 mmol/L Normal 98-108 [facility] Comment on above: Performed By: #### L 500.2500 ####[facility] [address] [place], [address] CO2 [Moles/Vol] 22.5 mmol/L Normal 21.0-32.0 [facility] Comment on above: Performed By: #### L 500.2500 ####[facility] [address] [place], [address] Creatinine [Mass/Vol] 4.44 mg/dL High 0.70-1.20 [facility] Comment on above: Performed By: #### L 500.2500 ####[facility] [address] [place], [address] ECRCL 9.83 ml/min Invalid Interpretation Code 50-250 [facility] Comment on above: Performed By: #### L 500.2500 ####[facility] [address] [place], [address] GAP 12 Normal 5-15 [facility] Comment on above: Performed By: #### L 500.2500 ####[facility] [address], [address] GFR/1.73 sq M.predicted among non-blacks MDRD (S/P/Bld) [Vol rate/Area] 10 mL/min/{1.73_m2} Low >60 [facility] Comment on above: Result Comment: mL/m in/1.73m2 CKD-EPI Creatinine Equation (2020) Performed By: #### L 500.2500 ####[facility] [address] [place], [address] Glucose [Mass/Vol] 164 mg/dL High 70-99 [facility] Comment on above: Performed By: #### L 500.2500 ####[facility] [address] [place], [address] Potassium [Moles/Vol] 5.3 mmol/L High 3.3-5.1 [facility] Comment on above: Performed By: #### L 500.2500 ####[facility] [address] [place], [address] Sodium [Moles/Vol] 139 mmol/L Normal 133-145 [facility] Comment on above: Performed By: #### L 500.2500 ####[facility] [address] [place], [address] Urea nitrogen [Mass/Vol] 69 mg/dL High 4-19 [facility] Comment on above: Performed By: #### L 500.2500 ####[facility] [address] [place], [address] Bedside Glucoseon 05-29-2025 FINGERSTICK GLU 205 mg/dL High 74-106 [facility] Comment on above: Result Comment: SHELLY GEMENT OF PATIENT CARE PER NURSING PROTOCOL Performed By: #### L 501.080 ####[facility] [address] [place], [address] FINGERSTICK GLU 195 mg/dL High 74-106 [facility] Comment on above: Result Comment: SHELLY GEMENT OF PATIENT CARE PER NURSING PROTOCOL Performed By: #### L 501.080 ####[facility] [address] [place], [address] FINGERSTICK GLU 146 mg/dL High 74-106 [facility] Comment on above: Result Comment: SHELLY GEMENT OF PATIENT CARE PER NURSING PROTOCOL Performed By: #### L 501.080 ####[facility] [address] [place], [address] FINGERSTICK GLU 131 mg/dL High 74-106 [facility] Comment on above: Result Comment: SHELLY GEMENT OF PATIENT CARE PER NURSING PROTOCOL Performed By: #### L 501.080 ####[facility] [address] [place], [address] FINGERSTICK GLU 96 mg/dL Normal 74-106 [facility] Comment on above: Result Comment: SHELLY GEMENT OF PATIENT CARE PER NURSING PROTOCOL Performed By: #### L 501.080 ####[facility] [address] [place], [address] FINGERSTICK GLU 142 mg/dL High 74-106 [facility] Comment on above: Result Comment: SHELLY GEMENT OF PATIENT CARE PER NURSING PROTOCOL Performed By: #### L 501.080 ####[facility] [address] [place], [address] FINGERSTICK GLU 94 mg/dL Normal 74-106 [facility] Comment on above: Result Comment: SHELLY GEMENT OF PATIENT CARE PER NURSING PROTOCOL Performed By: #### L 501.080 ####[facility] [address] [place], [address] AV Fistula/Dialysis Graft Sc anon 05-28-2025 AV Fistula/Dialysis Graft Scan Normal [facility] Basic Metabolic Profile (BMP )on 05-28-2025 BUN/CRE 13.6 RATIO Normal 10-20 [facility] Comment on above: Performed By: #### L 100.0100, L500.2500 ####[facility] [address] [place], [address] Calcium [Mass/Vol] 8.3 mg/dL Normal 7.6-11.0 [facility] Comment on above: Performed By: #### L 100.0100, L500.2500 ####[facility] [address] [place], [address] Chloride [Moles/Vol] 105 mmol/L Normal 98-108 [facility] Comment on above: Performed By: #### L 100.0100, L500.2500 ####[facility] [address] [place], [address] CO2 [Moles/Vol] 24.3 mmol/L Normal 21.0-32.0 [facility] Comment on above: Performed By: #### L 100.0100, L500.2500 ####[facility] [address] [place], [address] Creatinine [Mass/Vol] 4.05 mg/dL High 0.70-1.20 [facility] Comment on above: Performed By: #### L 100.0100, L500.2500 ####[facility] [address] [place], [address] ECRCL 10.43 ml/min Low 50-250 [facility] Comment on above: Performed By: #### L 100.0100, L500.2500 ####[facility] [address], [address] GAP 12 Normal 5-15 [facility] Comment on above: Performed By: #### L 100.0100, L500.2500 ####[facility] [address], [address] GFR/1.73 sq M.predicted among non-blacks MDRD (S/P/Bld) [Vol rate/Area] 12 mL/min/{1.73_m2} Low >60 [facility] Comment on above: Result Comment: mL/m in/1.73m2 CKD-EPI Creatinine Equation (2020) Performed By: #### L 100.0100, L500.2500 ####[facility] [address], [address] Glucose [Mass/Vol] 176 mg/dL High 70-99 [facility] Comment on above: Performed By: #### L 100.0100, L500.2500 ####[facility] [address] [place], [address] Potassium [Moles/Vol] 4.8 mmol/L Normal 3.3-5.1 [facility] Comment on above: Performed By: #### L 100.0100, L500.2500 ####[facility] [address] [place], [address] Sodium [Moles/Vol] 141 mmol/L Normal 133-145 [facility] Comment on above: Performed By: #### L 100.0100, L500.2500 ####[facility] [address] [place], [address] Urea nitrogen [Mass/Vol] 55 mg/dL High 4-19 [facility] Comment on above: Performed By: #### L 100.0100, L500.2500 ####[facility] [address] [place], [address] Bedside Glucoseon 05-28-2025 FINGERSTICK GLU 334 mg/dL High 74-106 [facility] Comment on above: Result Comment: SHELLY GEMENT OF PATIENT CARE PER NURSING PROTOCOL Performed By: #### L 501.080 ####[facility] [address] [place], [address] FINGERSTICK GLU 313 mg/dL High 74-106 [facility] Comment on above: Result Comment: SHELLY GEMENT OF PATIENT CARE PER NURSING PROTOCOL Performed By: #### L 501.080 ####[facility] [address] [place], [address] FINGERSTICK GLU 229 mg/dL High 74-106 [facility] Comment on above: Result Comment: SHELLY GEMENT OF PATIENT CARE PER NURSING PROTOCOL Performed By: #### L 501.080 ####[facility] [facility] [address] [place], [address] FINGERSTICK GLU 156 mg/dL High 74-106 [facility] Comment on above: Result Comment: SHELLY GEMENT OF PATIENT CARE PER NURSING PROTOCOL Performed By: #### L 501.080 ####[facility] [address] [place], [address] CBC W/Diff, Automatedon 07- Absolute Lymph 0.21 X10 3/uL Low 0.83-4.51 [facility] Comment on above: Performed By: #### L 100.0100, L500.2500 ####[facility] [address] [place], [address] Absolute Neut 3.5 X10 3/uL Normal 2.0-7.7 [facility] Comment on above: Performed By: #### L 100.0100, L500.2500 ####[facility] [address] [place], [address] Basophils/100 WBC (Bld) 0.8 % Normal 0-1 [facility] Comment on above: Performed By: #### L 100.0100, L500.2500 ####[facility] [address] [place], [address] Eosinophils/100 WBC (Bld) 0.3 % Normal 0-5 [facility] Comment on above: Performed By: #### L 100.0100, L500.2500 ####[facility] [address] [place], [address] Erythrocyte distribution width (RBC) [Ratio] 14.5 % Normal 11.6-14.6 [facility] Comment on above: Performed By: #### L 100.0100, L500.2500 ####[facility] [address] [place], [address] Hematocrit (Bld) [Volume fraction] 32.7 % Low 37-47 [facility] Comment on above: Performed By: #### L 100.0100, L500.2500 ####[facility] [address] [place], [address] Hemoglobin (Bld) [Mass/Vol] 9.7 g/dL Low 12.0-15.0 [facility] Comment on above: Performed By: #### L 100.0100, L500.2500 ####[facility] [address] [place], [address] IG% 0.800 Normal 0.0-0.9 [facility] Comment on above: Result Comment: IG% - Immature Granulocytes (promyelocytes, myelocytes andmetamyelocytes) > 1% indicates that a LEFT SHIFT is Present. Performed By: #### L 100.0100, L500.2500 ####[facility] [address] [place], [address] Lymphocytes/100 WBC (Bld) 5.5 % Low 19-41 [facility] Comment on above: Performed By: #### L 100.0100, L500.2500 ####[facility] [address] [place], [address] MCH (RBC) [Entitic mass] 27.8 pg Normal 27.0-32.0 [facility] Comment on above: Performed By: #### L 100.0100, L500.2500 ####[facility] [address] [place], [address] MCHC (RBC) [Mass/Vol] 29.7 g/dL Low 32-36 [facility] Comment on above: Performed By: #### L 100.0100, L500.2500 ####[facility] [address] [place], [address] MCV (RBC) [Entitic vol] 93.7 fL Normal 81-99 [facility] Comment on above: Performed By: #### L 100.0100, L500.2500 ####[facility] [address] [place], [address] Monocytes/100 WBC (Bld) 2.1 % Normal 0-10 [facility] Comment on above: Performed By: #### L 100.0100, L500.2500 ####[facility] [address] [place], [address] Neutrophils/100 WBC (Bld) 90.5 % High 47-70 [facility] Comment on above: Performed By: #### L 100.0100, L500.2500 ####[facility] [address] [place], [address] Nucleated RBC (Bld) [#/Vol] 0 10*3/uL Normal 0-5 [facility] Comment on above: Performed By: #### L 100.0100, L500.2500 ####[facility] [address] [place], [address] Platelet mean volume (Bld) [Entitic vol] 10.4 fL Normal 6.2-12.0 [facility] Comment on above: Performed By: #### L 100.0100, L500.2500 ####[facility] [address] [place], [address] Platelets (Bld) [#/Vol] 142 10*3/uL Low 150-450 [facility] Comment on above: Performed By: #### L 100.0100, L500.2500 ####[facility] [address] [place], [address] RBC (Bld) [#/Vol] 3.49 10*6/uL Low 4.2-5.4 [facility] Comment on above: Performed By: #### L 100.0100, L500.2500 ####[facility] [address] [place], [address] RDW SD 48.7 fl High 35.1-43.9 [facility] Comment on above: Performed By: #### L 100.0100, L500.2500 ####[facility] [address] [place], [address] WBC (Bld) [#/Vol] 3.8 10*3/uL Low 4.4-11.0 [facility] Comment on above: Performed By: #### L 100.0100, L500.2500 ####[facility] [address] [place], [address] Consultation - Nephrologyon 05-28-2025 Consultation - Nephrology Normal [facility] Consultation - Surgicalon Consultation - Surgical Normal [facility] H AND P Exam - Hospitaliston 05-28-2025 H&P Exam - Hospitalist Normal [facility] Troponin T HS 4 HRon 025 Trop T High Sen Normal <=14 [facility] Comment on above: Result Comment: Heena garcia via OM: Ordered Performed By: #### L 499.0043 ####[facility] [address], [address] 12 Lead EKGon 05-27-2025 12 Lead EKG Normal [facility] Absolute lymphocyte countOrd ered By: Bentleyjose ramon Salazar on 05-27-2025 Lymphocytes Auto (Unsp spec) [#/Vol] 0.80 10*3/uL Low 0.83-4.51 [facility] Anion gap in Serum or Plasma Ordered By: Bentleyjose ramon Salazar on 05-27-2025 Anion gap [Moles/Vol] 10 mmol/L 5-15 [facility] Automated lymphocyte count a s percentage of total leukocytesOrdered By: Bentley Salazar on 05-27-2025 Lymphocytes/100 WBC Auto (Unsp spec) 16.0 % Low 19-41 [facility] BUN/creatinine ratioOrdered By: Bentley Salazar on 05-27-2025 Urea nitrogen/Creatinine [Mass ratio] 13.4 mg/mg 10-20 [facility] Basic Metabolic Profile (BMP )on 05-27-2025 BUN/CRE 13.4 RATIO Normal 10-20 [facility] Comment on above: Performed By: #### L 500.2500, L501.4021 ####[facility] [address] [facility] [address] Calcium [Mass/Vol] 8.3 mg/dL Normal 7.6-11.0 [facility] Comment on above: Performed By: #### L 500.2500, L501.4021 ####[facility] [address], [address] Chloride [Moles/Vol] 108 mmol/L Normal 98-108 [facility] Comment on above: Performed By: #### L 500.2500, L501.4021 ####[facility] [address] [place], [address] CO2 [Moles/Vol] 24.1 mmol/L Normal 21.0-32.0 [facility] Comment on above: Performed By: #### L 500.2500, L501.4021 ####[facility] [address] [place], [address] Creatinine [Mass/Vol] 3.91 mg/dL High 0.70-1.20 [facility] Comment on above: Performed By: #### L 500.2500, L501.4021 ####[facility] [address] [place], [address] ECRCL 10.71 ml/min Low 50-250 [facility] Comment on above: Performed By: #### L 500.2500, L501.4021 ####[facility] [address] [place], [address] GAP 10 Normal 5-15 [facility] Comment on above: Performed By: #### L 500.2500, L501.4021 ####[facility] [address] [place], [address] GFR/1.73 sq M.predicted among non-blacks MDRD (S/P/Bld) [Vol rate/Area] 12 mL/min/{1.73_m2} Low >60 [facility] Comment on above: Result Comment: mL/m in/1.73m2 CKD-EPI Creatinine Equation (2020) Performed By: #### L 500.2500, L501.4021 ####[facility] [address] [place], [address] Glucose [Mass/Vol] 109 mg/dL High 70-99 [facility] Comment on above: Performed By: #### L 500.2500, L501.4021 ####[facility] [address] [place], [address] Potassium [Moles/Vol] 5.0 mmol/L Normal 3.3-5.1 [facility] Comment on above: Result Comment: Hemo lysis present, Results??could be affected.?? Performed By: #### L 500.2500, L501.4021 ####[facility] [address] [place], [address] Sodium [Moles/Vol] 142 mmol/L Normal 133-145 [facility] Comment on above: Performed By: #### L 500.2500, L501.4021 ####[facility] [address] [place], [address] Urea nitrogen [Mass/Vol] 53 mg/dL High 4-19 [facility] Comment on above: Performed By: #### L 500.2500, L501.4021 ####[facility] [address] [place], [address] BUN Normal -19 [facility] Comment on above: Result Comment: This specimen has been REJECTED due to Laboratory criteria:Hemolyzed.RADHA (ED) has been notified of need of recollection.05/27/252109 Brenda Lollo Performed By: #### L 100.0100, L500.2500 ####[facility] [address] [place], [address] BUN/CRE Normal 10-20 [facility] Comment on above: Result Comment: This specimen has been REJECTED due to Laboratory criteria:Hemolyzed.RADHA (ED) has been notified of need of recollection.05/27/252109 Brenda Lollo Performed By: #### L 100.0100, L500.2500 ####[facility] [address] [place], [address] Calcium Normal 7.6-11.0 [facility] Comment on above: Result Comment: This specimen has been REJECTED due to Laboratory criteria:Hemolyzed.RADHA (ED) has been notified of need of recollection.05/27/252109 Brenda Lollo Performed By: #### L 100.0100, L500.2500 ####[facility] [address] [place], [address] CL Normal 98-108 [facility] Comment on above: Result Comment: This specimen has been REJECTED due to Laboratory criteria:Hemolyzed.RADHA (ED) has been notified of need of recollection.05/27/252109 Brenda Lollo Performed By: #### L 100.0100, L500.2500 ####[facility] [address] [place], [address] CO2 Normal 21.0-32.0 [facility] Comment on above: Result Comment: This specimen has been REJECTED due to Laboratory criteria:Hemolyzed.RADHA (ED) has been notified of need of recollection.05/27/252109 Brenda Lollo Performed By: #### L 100.0100, L500.2500 ####[facility] [address] [place], [address] CREAT,SERUM Normal 0.70-1.20 [facility] Comment on above: Result Comment: This specimen has been REJECTED due to Laboratory criteria:Hemolyzed.RADHA (ED) has been notified of need of recollection.05/27/252109 Brenda Lollo Performed By: #### L 100.0100, L500.2500 ####[facility] [address] [place], [address] eGFR Normal >60 [facility] Comment on above: Result Comment: This specimen has been REJECTED due to Laboratory criteria:Hemolyzed.RADHA (ED) has been notified of need of recollection.05/27/252109 Brenda Lollo Performed By: #### L 100.0100, L500.2500 ####[facility] [address] [place], [address] GAP Normal 5-15 [facility] Comment on above: Result Comment: This specimen has been REJECTED due to Laboratory criteria:Hemolyzed.RADHA (ED) has been notified of need of recollection.05/27/252109 Brenda Lollo Performed By: #### L 100.0100, L500.2500 ####[facility] [address] [place], [address] GLU Normal 70-99 [facility] Comment on above: Result Comment: This specimen has been REJECTED due to Laboratory criteria:Hemolyzed.RADHA (ED) has been notified of need of recollection.05/27/252109 Brenda Lollo Performed By: #### L 100.0100, L500.2500 ####[facility] [address] [place], [address] Potassium Normal 3.3-5.1 [facility] Comment on above: Result Comment: This specimen has been REJECTED due to Laboratory criteria:Hemolyzed.RADHA (ED) has been notified of need of recollection.05/27/252109 Brenda Lollo Performed By: #### L 100.0100, L500.2500 ####[facility] [address] [place], [address] Basic Metabolic Profile (BMP) Normal 133-145 [facility] Comment on above: Result Comment: This specimen has been REJECTED due to Laboratory criteria:Hemolyzed.RADHA (ED) has been notified of need of recollection.05/27/252109 Brenda Lollo Performed By: #### L 100.0100, L500.2500 ####[facility] [address] [place], [address] Basophil percentageOrdered B y: Bentley Salazar on 05-27-2025 Basophils/100 WBC (Bld) 0.6 % 0-1 [facility] CBC W/Diff, Automatedon 05-04 Absolute Lymph 0.80 X10 3/uL Low 0.83-4.51 [facility] Comment on above: Performed By: #### L 100.0100, L500.2500 ####[facility] [address] [place], [address] Absolute Neut 3.5 X10 3/uL Normal 2.0-7.7 [facility] Comment on above: Performed By: #### L 100.0100, L500.2500 ####[facility] [address] [place], [address] Basophils/100 WBC (Bld) 0.6 % Normal 0-1 [facility] Comment on above: Performed By: #### L 100.0100, L500.2500 ####[facility] [address] [place], [address] Eosinophils/100 WBC (Bld) 3.4 % Normal 0-5 [facility] Comment on above: Performed By: #### L 100.0100, L500.2500 ####[facility] [address] [place], [address] Erythrocyte distribution width (RBC) [Ratio] 14.6 % Normal 11.6-14.6 [facility] Comment on above: Performed By: #### L 100.0100, L500.2500 ####[facility] [address] [place], [address] Hematocrit (Bld) [Volume fraction] 32.2 % Low 37-47 [facility] Comment on above: Performed By: #### L 100.0100, L500.2500 ####[facility] [address] [place], [address] Hemoglobin (Bld) [Mass/Vol] 9.8 g/dL Low 12.0-15.0 [facility] Comment on above: Performed By: #### L 100.0100, L500.2500 ####[facility] [address] [place], [address] IG% 0.400 Normal 0.0-0.9 [facility] Comment on above: Result Comment: IG% - Immature Granulocytes (promyelocytes, myelocytes andmetamyelocytes) > 1% indicates that a LEFT SHIFT is Present. Performed By: #### L 100.0100, L500.2500 ####[facility] [address] [place], [address] Lymphocytes/100 WBC (Bld) 16.0 % Low 19-41 [facility] Comment on above: Performed By: #### L 100.0100, L500.2500 ####[facility] [address] [place], [address] MCH (RBC) [Entitic mass] 28.2 pg Normal 27.0-32.0 [facility] Comment on above: Performed By: #### L 100.0100, L500.2500 ####[facility] [address] [place], [address] MCHC (RBC) [Mass/Vol] 30.4 g/dL Low 32-36 [facility] Comment on above: Performed By: #### L 100.0100, L500.2500 ####[facility] [address] [place], [address] MCV (RBC) [Entitic vol] 92.8 fL Normal 81-99 [facility] Comment on above: Performed By: #### L 100.0100, L500.2500 ####[facility] [address] [place], [address] Monocytes/100 WBC (Bld) 10.0 % Normal 0-10 [facility] Comment on above: Performed By: #### L 100.0100, L500.2500 ####[facility] [address] [place], [address] Neutrophils/100 WBC (Bld) 69.6 % Normal 47-70 [facility] Comment on above: Performed By: #### L 100.0100, L500.2500 ####[facility] [address] [place], [address] Nucleated RBC (Bld) [#/Vol] 0 10*3/uL Normal 0-5 [facility] Comment on above: Performed By: #### L 100.0100, L500.2500 ####[facility] [address] [place], [address] Platelet mean volume (Bld) [Entitic vol] 11.4 fL Normal 6.2-12.0 [facility] Comment on above: Performed By: #### L 100.0100, L500.2500 ####[facility] [address] [place], [address] Platelets (Bld) [#/Vol] 169 10*3/uL Normal 150-450 [facility] Comment on above: Performed By: #### L 100.0100, L500.2500 ####[facility] [address] [place], [address] RBC (Bld) [#/Vol] 3.47 10*6/uL Low 4.2-5.4 [facility] Comment on above: Performed By: #### L 100.0100, L500.2500 ####[facility] [address] [place], [address] RDW SD 49.4 fl High 35.1-43.9 [facility] Comment on above: Performed By: #### L 100.0100, L500.2500 ####[facility] [address] [place], [address] WBC (Bld) [#/Vol] 5.0 10*3/uL Normal 4.4-11.0 [facility] Comment on above: Performed By: #### L 100.0100, L500.2500 ####[facility] [address] [place], [address] Carbon dioxide, total [Moles /volume] in Central venous bloodOrdered By: Bentley Salazar on 05-27-2025 CO2 [Moles/Vol] 24.1 mmol/L 21.0-32.0 [facility] Chest 1 View (Portable)on Chest 1 View (Portable) Normal [facility] Chloride assayOrdered By: Carrington Salazar on 05-27-2025 Chloride [Moles/Vol] 108 mmol/L 98-108 [facility] Emergency Department Summary on 05-27-2025 Emergency Department Summary Normal [facility] Eosinophil percentageOrdered By: Bentley Salazar on 05-27-2025 Eosinophils/100 WBC (Bld) 3.4 % 0-5 [facility] Erythrocyte distribution wid th ratioOrdered By: Bentley Salazar on 05-27-2025 Erythrocyte distribution width (RBC) [Ratio] 14.6 % 11.6-14.6 [facility] Erythrocyte distribution wid th standard deviationOrdered By: Bentley Salazar on 05-27-2025 Erythrocyte distribution width (RBC) [Ratio] 49.4 fl High 35.1-43.9 [facility] Glomerular filtration rate ( GFR) estimation/1.73 sq m using serum, plasma, or whole bOrdered By: Bentley Salazar on 05-27-2025 GFR/1.73 sq M.predicted among non-blacks MDRD (S/P/Bld) [Vol rate/Area] 12 mL/min/{1.73_m2} Low >60 [facility] Hematocrit Auto (Bld) [Volum e fraction]Ordered By: Bentley Salazar on 05-27-2025 Hematocrit (Bld) [Volume fraction] 32.2 % Low 37-47 [facility] Hemoglobin measurementOrdere d By: Bentley Salazar on 05-27-2025 Hemoglobin (Bld) [Mass/Vol] 9.8 g/dL Low 12.0-15.0 [facility] Immature granulocytes/100 WB C Auto (Bld)Ordered By: Bentley Salazar on 05-27-2025 Immature granulocytes/100 WBC (Bld) 0.400 % 0.0-0.9 [facility] L501.4021on 05-27-2025 Trop T High Sen 135 ng/L Invalid Interpretation Code <=14 [facility] Comment on above: Result Comment: Crit ical Result(s) Called at: 2151 by:??YAZMIN STEIN LSPARR. Results read back by same. Performed By: #### L 500.2500, L501.4021 ####[facility] [address] [place], [address] MCV (mean corpuscular volume ) determinationOrdered By: Bentley Salazar on 05-27-2025 MCV (RBC) [Entitic vol] 92.8 fL 81-99 [facility] Mean corpuscular hemoglobin (MCH) determinationOrdered By: Bentley Salazar on 05-27-2025 MCH (RBC) [Entitic mass] 28.2 pg 27.0-32.0 [facility] Monocyte percentageOrdered B y: Bentley Salazar on 05-27-2025 Monocytes/100 WBC (Bld) 10.0 % 0-10 [facility] Neutrophil percentageOrdered By: Bentley Salazar on 05-27-2025 Neutrophils/100 WBC (Bld) 69.6 % 47-70 [facility] Platelet countOrdered By: Carrington Salazar on 05-27-2025 Platelets (Bld) [#/Vol] 169 10*3/uL 150-450 [facility] Potassium measurement (mass/ volume)Ordered By: Bentley Salazar on 05-27-2025 Potassium (Unsp spec) [Mass/Vol] 5.0 mmol/L 3.3-5.1 [facility] RBC Auto (Bld) [#/Vol]Ordere d By: Bentley Salazar on 05-27-2025 RBC (Bld) [#/Vol] 3.47 10*6/uL Low 4.2-5.4 [facility] Serum creatinine measurement (mass/volume)Ordered By: Bentley Salazar on 05-27-2025 Creatinine [Mass/Vol] 3.91 mg/dL High 0.70-1.20 [facility] Serum glucose measurement (m ass/volume)Ordered By: Bentley Salazar on 05-27-2025 Glucose [Mass/Vol] 109 mg/dL High 70-99 [facility] Serum or plasma calcium lesly urement (mass/volume)Ordered By: Bentley Salazar on 05-27-2025 Calcium [Mass/Vol] 8.3 mg/dL 7.6-11.0 [facility] Serum or plasma urea nitroge n measurement (mass/volume)Ordered By: Bentley Salazar on 05-27-2025 Urea nitrogen [Mass/Vol] 53 mg/dL High 4-19 [facility] Sodium levelOrdered By: Kevin Salazar on 05-27-2025 Sodium [Moles/Vol] 142 mmol/L 133-145 [facility] Troponin T HS 2 HRon 025 Trop T High Sen 133 ng/L Invalid Interpretation Code <=14 [facility] Comment on above: Result Comment: Crit ical Result(s) Called at 2349: by:??NBURNS TO ESMARTResults read back by same. Performed By: #### L 499.0042 ####[facility] [address] [place], [place], [address] Troponin T.cardiac [Mass/vol ume] in Serum or Plasma by High sensitivity methodOrdered By: Bentley Salazar on 05-27-2025 Troponin T.cardiac High sensitivity method [Mass/Vol] 133 ng/L High <14 [facility] Troponin T.cardiac High sensitivity method [Mass/Vol] 135 ng/L High <14 [facility] White blood cell (WBC) count Ordered By: Bentley Salazar on 05-27-2025 WBC (Bld) [#/Vol] 5.0 10*3/uL 4.4-11.0 [facility] Anion gap in Serum or Plasma Ordered By: Shivani Mcrae on 05-20-2025 Anion gap [Moles/Vol] 10 mmol/L 5-15 [facility] BUN/creatinine ratioOrdered By: Shivani Mcrae on 05-20-2025 Urea nitrogen/Creatinine [Mass ratio] 8.6 mg/mg Low 10-20 [facility] Basic Metabolic Profile (BMP )on 05-20-2025 BUN/CRE 8.6 RATIO Low - [facility] Comment on above: Performed By: #### L 500.2500 ####[facility] [address] [place], [address] Calcium [Mass/Vol] 7.9 mg/dL Normal 7.6-11.0 [facility] Comment on above: Performed By: #### L 500.2500 ####[facility] [address] [place], [address] Chloride [Moles/Vol] 100 mmol/L Normal 98-108 [facility] Comment on above: Performed By: #### L 500.2500 ####[facility] [address] [place], [address] CO2 [Moles/Vol] 27.7 mmol/L Normal 21.0-32.0 [facility] Comment on above: Performed By: #### L 500.2500 ####[facility] [address] [place], [address] Creatinine [Mass/Vol] 2.33 mg/dL High 0.70-1.20 [facility] Comment on above: Performed By: #### L 500.2500 ####[facility] [address] [place], [address] ECRCL 19.11 ml/min Low 50-250 [facility] Comment on above: Performed By: #### L 500.2500 ####[facility] [facility] [address] [place], [address] GAP 10 Normal 5-15 [facility] Comment on above: Performed By: #### L 500.2500 ####[facility] [address] [place], [address] GFR/1.73 sq M.predicted among non-blacks MDRD (S/P/Bld) [Vol rate/Area] 23 mL/min/{1.73_m2} Low >60 [facility] Comment on above: Result Comment: mL/m in/1.73m2 CKD-EPI Creatinine Equation (2020) Performed By: #### L 500.2500 ####[facility] [address] [place], [address] Glucose [Mass/Vol] 164 mg/dL High 70-99 [facility] Comment on above: Performed By: #### L 500.2500 ####[facility] [address] [place], [address] Potassium [Moles/Vol] 3.2 mmol/L Low 3.3-5.1 [facility] Comment on above: Result Comment: Hemo lysis present, Results??could be affected.?? Performed By: #### L 500.2500 ####[facility] [address] [place], [address] Sodium [Moles/Vol] 138 mmol/L Normal 133-145 [facility] Comment on above: Performed By: #### L 500.2500 ####[facility] [address] [place], [address] Urea nitrogen [Mass/Vol] 20 mg/dL High 4-19 [facility] Comment on above: Performed By: #### L 500.2500 ####[facility] [address] [place], [address] Carbon dioxide, total [Moles /volume] in Central venous bloodOrdered By: Shivani Mcrae on 05-20-2025 CO2 [Moles/Vol] 27.7 mmol/L 21.0-32.0 [facility] Chloride assayOrdered By: Wesley Mcrae on 05-20-2025 Chloride [Moles/Vol] 100 mmol/L 98-108 [facility] Emergency Department Summary on 05-20-2025 Emergency Department Summary Normal [facility] Glomerular filtration rate ( GFR) estimation/1.73 sq m using serum, plasma, or whole bOrdered By: Shivani Mcrae on 05-20-2025 GFR/1.73 sq M.predicted among non-blacks MDRD (S/P/Bld) [Vol rate/Area] 23 mL/min/{1.73_m2} Low >60 [facility] Comment on above: mL/min/1.73m2 CKD-EP I Creatinine Equation (2020) Potassium measurement (mass/ volume)Ordered By: Shivani Mcrae on 05-20-2025 Potassium (Unsp spec) [Mass/Vol] 3.2 mmol/L Low 3.3-5.1 [facility] Comment on above: Hemolysis present, R esults could be affected. Serum creatinine measurement (mass/volume)Ordered By: Shivani Mcrae on 05-20-2025 Creatinine [Mass/Vol] 2.33 mg/dL High 0.70-1.20 [facility] Serum glucose measurement (m ass/volume)Ordered By: Shivani Mcrae on 05-20-2025 Glucose [Mass/Vol] 164 mg/dL High 70-99 [facility] Serum or plasma calcium lesly urement (mass/volume)Ordered By: Shivani Mcrae on 05-20-2025 Calcium [Mass/Vol] 7.9 mg/dL 7.6-11.0 [facility] Serum or plasma urea nitroge n measurement (mass/volume)Ordered By: Shivani Mcrae on 05-20-2025 Urea nitrogen [Mass/Vol] 20 mg/dL High 4-19 [facility] Sodium levelOrdered By: Juan Mcrae on 05-20-2025 Sodium [Moles/Vol] 138 mmol/L 133-145 [facility] Pulmonary Visit Reporton Pulmonary Visit Report Normal [facility] Abdomen/Pelvis W IV Cont ONL Yon 05-08-2025 Abdomen/Pelvis W IV Cont ONLY Normal [facility] Absolute lymphocyte countOrd ered By: Justin Parisi on 05-08-2025 Lymphocytes Auto (Unsp spec) [#/Vol] 1.62 10*3/uL 0.83-4.51 [facility] Absolute neutrophil countOrd ered By: Justin Parisi on 05-08-2025 Neutrophils (Bld) [#/Vol] 2.9 10*3/uL 2.0-7.7 [facility] Anion gap in Serum or Plasma Ordered By: Justinmarine Parisi on 05-08-2025 Anion gap [Moles/Vol] 11 mmol/L 5-15 [facility] Automated lymphocyte count a s percentage of total leukocytesOrdered By: Justin Parisi on 05-08-2025 Lymphocytes/100 WBC Auto (Unsp spec) 27.5 % 19-41 [facility] BUN/creatinine ratioOrdered By: [place] Isak on 05-08-2025 Urea nitrogen/Creatinine [Mass ratio] 8.8 mg/mg Low 10-20 [facility] Basophil percentageOrdered B y: Justin Parisi on 05-08-2025 Basophils/100 WBC (Bld) 0.8 % 0-1 [facility] Beta-Hydroxbytyrateon 2024 BETA-HYDROXYBUT 0.4 mmol/L High 0.0-0.3 [facility] Comment on above: Performed By: #### L 501.6901 ####[facility] [address] [place], [place], [id number] Beta-hydroxybutyrateOrdered By: [facility] CountylatriceTerese on 05-08-2025 Beta hydroxybutyrate [Mass/Vol] 0.4 mmol/L High 0.0-0.3 [facility] Bilirubin Test strip Ql (U)O rdered By: [place] Isak on 05-08-2025 Bilirubin Ql (U) Negative Negative [facility] Bilirubin, totalOrdered By: [facility] CountyIglesia on 05-08-2025 Bilirubin [Mass/Vol] 0.30 mg/dL 0.00-1.30 [facility] CBC W/Diff, Automatedon Absolute Lymph 1.62 X10 3/uL Normal 0.83-4.51 [facility] Comment on above: Performed By: #### L 501.5200, L100.0100, L501.2450, L500.4050 ####[facility] [address] [place], [address] Absolute Neut 2.9 X10 3/uL Normal 2.0-7.7 [facility] Comment on above: Performed By: #### L 501.5200, L100.0100, L501.2450, L500.4050 ####[facility] [address] [place], [address] Basophils/100 WBC (Bld) 0.8 % Normal 0-1 [facility] Comment on above: Performed By: #### L 501.5200, L100.0100, L501.2450, L500.4050 ####[facility] [address] [place], [address] Eosinophils/100 WBC (Bld) 15.1 % High 0-5 [facility] Comment on above: Performed By: #### L 501.5200, L100.0100, L501.2450, L500.4050 ####[facility] [address] [place], [address] Erythrocyte distribution width (RBC) [Ratio] 13.8 % Normal 11.6-14.6 [facility] Comment on above: Performed By: #### L 501.5200, L100.0100, L501.2450, L500.4050 ####[facility] [address] [place], [address] Hematocrit (Bld) [Volume fraction] 37.2 % Normal 37-47 [facility] Comment on above: Performed By: #### L 501.5200, L100.0100, L501.2450, L500.4050 ####[facility] [address] [place], [address] Hemoglobin (Bld) [Mass/Vol] 11.2 g/dL Low 12.0-15.0 [facility] Comment on above: Performed By: #### L 501.5200, L100.0100, L501.2450, L500.4050 ####[facility] [address] [place], [address] IG% 0.200 Normal 0.0-0.9 [facility] Comment on above: Result Comment: IG% - Immature Granulocytes (promyelocytes, myelocytes andmetamyelocytes) > 1% indicates that a LEFT SHIFT is Present. Performed By: #### L 501.5200, L100.0100, L501.2450, L500.4050 ####[facility] [address] [place], [address] Lymphocytes/100 WBC (Bld) 27.5 % Normal 19-41 [facility] Comment on above: Performed By: #### L 501.5200, L100.0100, L501.2450, L500.4050 ####[facility] [address] [place], [address] MCH (RBC) [Entitic mass] 28.1 pg Normal 27.0-32.0 [facility] Comment on above: Performed By: #### L 501.5200, L100.0100, L501.2450, L500.4050 ####[facility] [address] [place], [address] MCHC (RBC) [Mass/Vol] 30.1 g/dL Low 32-36 [facility] Comment on above: Performed By: #### L 501.5200, L100.0100, L501.2450, L500.4050 ####[facility] [address] [place], [address] MCV (RBC) [Entitic vol] 93.2 fL Normal 81-99 [facility] Comment on above: Performed By: #### L 501.5200, L100.0100, L501.2450, L500.4050 ####[facility] [address] [place], [address] Monocytes/100 WBC (Bld) 7.1 % Normal 0-10 [facility] Comment on above: Performed By: #### L 501.5200, L100.0100, L501.2450, L500.4050 ####[facility] [address] [place], [address] Neutrophils/100 WBC (Bld) 49.3 % Normal 47-70 [facility] Comment on above: Performed By: #### L 501.5200, L100.0100, L501.2450, L500.4050 ####[facility] [address] [place], [address] Nucleated RBC (Bld) [#/Vol] 0 10*3/uL Normal 0-5 [facility] Comment on above: Performed By: #### L 501.5200, L100.0100, L501.2450, L500.4050 ####[facility] [address] [place], [address] Platelet mean volume (Bld) [Entitic vol] 9.9 fL Normal 6.2-12.0 [facility] Comment on above: Performed By: #### L 501.5200, L100.0100, L501.2450, L500.4050 ####[facility] [address] [place], [address] Platelets (Bld) [#/Vol] 154 10*3/uL Normal 150-450 [facility] Comment on above: Performed By: #### L 501.5200, L100.0100, L501.2450, L500.4050 ####[facility] [address] [place], [address] RBC (Bld) [#/Vol] 3.99 10*6/uL Low 4.2-5.4 [facility] Comment on above: Performed By: #### L 501.5200, L100.0100, L501.2450, L500.4050 ####[facility] [address] [place], [address] RDW SD 47.4 fl High 35.1-43.9 [facility] Comment on above: Performed By: #### L 501.5200, L100.0100, L501.2450, L500.4050 ####[facility] [address] [place], [address] WBC (Bld) [#/Vol] 5.9 10*3/uL Normal 4.4-11.0 [facility] Comment on above: Performed By: #### L 501.5200, L100.0100, L501.2450, L500.4050 ####[facility] [address] [place], [address] CO2 (BldV) [Moles/Vol]Ordere d By: Justin Parisi on 05-08-2025 CO2 [Moles/Vol] 37 mmol/L High 23-33 [facility] Carbon dioxide, total [Moles /volume] in Central venous bloodOrdered By: Justin Parisi on 05-08-2025 CO2 [Moles/Vol] 28.6 mmol/L 21.0-32.0 [facility] Chest PA and Lateralon 05-08 Chest PA and Lateral Normal [facility] Chloride assayOrdered By: Neli Parisi on 05-08-2025 Chloride [Moles/Vol] 102 mmol/L 98-108 [facility] Comprehensive Metabolic Prof ilon 05-08-2025 Albumin [Mass/Vol] 3.6 g/dL Normal 3.4-4.8 [facility] Comment on above: Performed By: #### L 501.5200, L100.0100, L501.2450, L500.4050 ####[facility] [address] [place], [address] Albumin/Globulin [Mass ratio] 1.3 {ratio} Normal 0.9-2.4 [facility] Comment on above: Performed By: #### L 501.5200, L100.0100, L501.2450, L500.4050 ####[facility] [address] [place], [address] ALK PHOS 63 U/L Normal 35-104 [facility] Comment on above: Performed By: #### L 501.5200, L100.0100, L501.2450, L500.4050 ####[facility] [address] [place], [address] ALT [Catalytic activity/Vol] 9 U/L Normal <=34 [facility] Comment on above: Performed By: #### L 501.5200, L100.0100, L501.2450, L500.4050 ####[facility] [address] [place], [address] AST [Catalytic activity/Vol] 22 U/L Normal <=31 [facility] Comment on above: Result Comment: Hemo lysis present, Results??could be affected.?? Performed By: #### L 501.5200, L100.0100, L501.2450, L500.4050 ####[facility] [address] [place], [address] Bilirubin [Mass/Vol] 0.30 mg/dL Normal 0.00-1.30 [facility] Comment on above: Performed By: #### L 501.5200, L100.0100, L501.2450, L500.4050 ####[facility] [address] [place], [address] BUN/CRE 8.8 RATIO Low 10-20 [facility] Comment on above: Performed By: #### L 501.5200, L100.0100, L501.2450, L500.4050 ####[facility] [address] [place], [address] Calcium [Mass/Vol] 8.3 mg/dL Normal 7.6-11.0 [facility] Comment on above: Performed By: #### L 501.5200, L100.0100, L501.2450, L500.4050 ####[facility] [address] [place], [address] Chloride [Moles/Vol] 102 mmol/L Normal 98-108 [facility] Comment on above: Performed By: #### L 501.5200, L100.0100, L501.2450, L500.4050 ####[facility] [address] [place], [address] CO2 [Moles/Vol] 28.6 mmol/L Normal 21.0-32.0 [facility] Comment on above: Performed By: #### L 501.5200, L100.0100, L501.2450, L500.4050 ####[facility] [address] [place], [address] Creatinine [Mass/Vol] 3.92 mg/dL High 0.70-1.20 [facility] Comment on above: Performed By: #### L 501.5200, L100.0100, L501.2450, L500.4050 ####[facility] [address] [place], [address] ECRCL 10.39 ml/min Low 50-250 [facility] Comment on above: Performed By: #### L 501.5200, L100.0100, L501.2450, L500.4050 ####[facility] [address] [place], [address] GAP 11 Normal 5-15 [facility] Comment on above: Performed By: #### L 501.5200, L100.0100, L501.2450, L500.4050 ####[facility] [address] [place], [address] GFR/1.73 sq M.predicted among non-blacks MDRD (S/P/Bld) [Vol rate/Area] 12 mL/min/{1.73_m2} Low >60 [facility] Comment on above: Result Comment: mL/m in/1.73m2 CKD-EPI Creatinine Equation (2020) Performed By: #### L 501.5200, L100.0100, L501.2450, L500.4050 ####[facility] [address] [place], [address] Globulin (S) [Mass/Vol] 2.7 g/dL Normal 2.2-4.2 [facility] Comment on above: Performed By: #### L 501.5200, L100.0100, L501.2450, L500.4050 ####[facility] [address] [place], [address] Glucose [Mass/Vol] 113 mg/dL High 70-99 [facility] Comment on above: Performed By: #### L 501.5200, L100.0100, L501.2450, L500.4050 ####[facility] [address] [place], [address] Potassium [Moles/Vol] 3.4 mmol/L Normal 3.3-5.1 [facility] Comment on above: Result Comment: Hemo lysis present, Results??could be affected.?? Performed By: #### L 501.5200, L100.0100, L501.2450, L500.4050 ####[facility] [address] [place], [address] Sodium [Moles/Vol] 141 mmol/L Normal 133-145 [facility] Comment on above: Performed By: #### L 501.5200, L100.0100, L501.2450, L500.4050 ####[facility] [address] [place], [place], [address] T PROT 6.2 g/dL Normal 5.9-8.4 [facility] Comment on above: Performed By: #### L 501.5200, L100.0100, L501.2450, L500.4050 ####[facility] [address] [place], [address] Urea nitrogen [Mass/Vol] 34 mg/dL High 4-19 [facility] Comment on above: Performed By: #### L 501.5200, L100.0100, L501.2450, L500.4050 ####[facility] [address] [place], [place], [address] Emergency Department Summary on 05-08-2025 Emergency Department Summary Normal [facility] Eosinophil percentageOrdered By: Justin Parisi on 05-08-2025 Eosinophils/100 WBC (Bld) 15.1 % High 0-5 [facility] Erythrocyte distribution wid th ratioOrdered By: [facility] Hospital[facility] on 05-08-2025 Erythrocyte distribution width (RBC) [Ratio] 13.8 % 11.6-14.6 [facility] Erythrocyte distribution wid th standard deviationOrdered By: Justin Becker on 05-08-2025 Erythrocyte distribution width (RBC) [Ratio] 47.4 fl High 35.1-43.9 [facility] Glomerular filtration rate ( GFR) estimation/1.73 sq m using serum, plasma, or whole bOrdered By: Justin Parisi on 05-08-2025 GFR/1.73 sq M.predicted among non-blacks MDRD (S/P/Bld) [Vol rate/Area] 12 mL/min/{1.73_m2} Low >60 [facility] Comment on above: mL/min/1.73m2 CKD-EP I Creatinine Equation (2020) Hematocrit Auto (Bld) [Volum e fraction]Ordered By: Justin Parisi on 05-08-2025 Hematocrit (Bld) [Volume fraction] 37.2 % 37-47 [facility] Hemoglobin measurementOrdere d By: Justin Parisi on 05-08-2025 Hemoglobin (Bld) [Mass/Vol] 11.2 g/dL Low 12.0-15.0 [facility] Immature granulocytes/100 WB C Auto (Bld)Ordered By: Justin Parisi on 05-08-2025 Immature granulocytes/100 WBC (Bld) 0.200 % 0.0-0.9 [facility] Comment on above: IG% - Immature Granu locytes (promyelocytes, myelocytes and metamyelocytes) > 1% indicates that a LEFT SHIFT is Present. Ketones Test strip Ql (U)Ord ered By: Justin Parisi on 05-08-2025 Ketones Ql (U) Negative Negative [facility] Laboratory - Chemistry and C hemistry - challengeOrdered By: Justin Parisi on 05-08-2025 AST [Catalytic activity/Vol] 22 U/L <32 [facility] Comment on above: Hemolysis present, R esults could be affected. Lipaseon 05-08-2025 Lipase [Catalytic activity/Vol] 12 U/L Low 13-75 [facility] Comment on above: Result Comment: Ry adhikari note:LIPASE revised reference range effective 23.New Lipase methodology. Expected to produce lower valuesthan the previous assay method.NEW Reference Range: 13 - 75 U/L Performed By: #### L 501.5200, L100.0100, L501.2450, L500.4050 ####[facility] [address] [place], [address] Lipase measurementOrdered By : [facility] CountyIglesia on 05-08-2025 Lipase [Catalytic activity/Vol] 12 U/L Low 13-75 [facility] Comment on above: Please note:LIPASE r evised reference range effective 23. New Lipase methodology. Expected to produce lower values than the previous assay method. NEW Reference Range: 13 - 75 U/L MCV (mean corpuscular volume ) determinationOrdered By: Justin Parisi on 05-08-2025 MCV (RBC) [Entitic vol] 93.2 fL 81-99 [facility] Magnesiumon 05-08-2025 Magnesium [Mass/Vol] 2.1 mg/dL Normal 1.5-2.2 [facility] Comment on above: Performed By: #### L 501.5200, L100.0100, L501.2450, L500.4050 ####[facility] [address], [address] Magnesium measurement (mass/ volume)Ordered By: Justin Parisi on 05-08-2025 Magnesium (Unsp spec) [Mass/Vol] 2.1 mg/dL 1.5-2.2 [facility] Mean corpuscular hemoglobin (MCH) determinationOrdered By: Justin Parisi on 05-08-2025 MCH (RBC) [Entitic mass] 28.1 pg 27.0-32.0 [facility] Mean corpuscular hemoglobin concentration (MCHC) determinationOrdered By: Justin Parisi on 05-08-2025 MCHC (RBC) [Mass/Vol] 30.1 g/dL Low 32-36 [facility] Mean platelet volume determi nationOrdered By: Justin Parisi on 05-08-2025 Platelet mean volume (Bld) [Entitic vol] 9.9 fL 6.2-12.0 [facility] Microscopic analysis of urin e for red blood cells (RBC)Ordered By: Justin Parisi on 05-08-2025 Microscopic analysis of urine for red blood cells (RBC) 0 SEEN /hpf 0-5 [facility] Monocyte percentageOrdered B y: Justin Parisi on 05-08-2025 Monocytes/100 WBC (Bld) 7.1 % 0-10 [facility] Mucus LM Ql (Urine sed)Order ed By: Justin Parisi on 05-08-2025 Mucus Ql (Urine sed) 0 SEEN /hpf [facility] Neutrophil percentageOrdered By: Justin Parisi on 05-08-2025 Neutrophils/100 WBC (Bld) 49.3 % 47-70 [facility] Nitrite Test strip Ql (U)Ord ered By: Justin Parisi on 05-08-2025 Nitrite Ql (U) Negative Negative [facility] No Panel InformationOrdered By: Justin Parisi on 05-08-2025 Blood Gas Sample Site Not entered [facility] Blood Gas Specimen Type ROHIT [facility] Oxygen Delivery Device Not entered [facility] ROHIT [facility] Not entered [facility] 22 U/L <32 [facility] Nucleated red blood cell per centageOrdered By: Justin Parisi on 05-08-2025 Nucleated RBC/100 WBC (Bld) [Ratio] 0 % 0-5 [facility] Platelet countOrdered By: Neli Parisi on 05-08-2025 Platelets (Bld) [#/Vol] 154 10*3/uL 150-450 [facility] Potassium measurement (mass/ volume)Ordered By: Justin Parisi on 05-08-2025 Potassium (Unsp spec) [Mass/Vol] 3.4 mmol/L 3.3-5.1 [facility] Comment on above: Hemolysis present, R esults could be affected. Protein Test strip Ql (U)Ord ered By: Justin Parisi on 05-08-2025 Protein Ql (U) 500 mg/dl High Negative [facility] RBC Auto (Bld) [#/Vol]Ordere d By: Justin Parisi on 05-08-2025 RBC (Bld) [#/Vol] 3.99 10*6/uL Low 4.2-5.4 [facility] Serum creatinine measurement (mass/volume)Ordered By: Justin Parisi on 05-08-2025 Creatinine [Mass/Vol] 3.92 mg/dL High 0.70-1.20 [facility] Serum globulin measurementOr dered By: Justin Parisi on 05-08-2025 Globulin (S) [Mass/Vol] 2.7 g/dL 2.2-4.2 [facility] Serum glucose measurement (m ass/volume)Ordered By: Justin Parisi on 05-08-2025 Glucose [Mass/Vol] 113 mg/dL High 70-99 [facility] Serum or plasma alanine martinez otransferase (ALT) measurementOrdered By: Justin Parisi on 05-08-2025 ALT [Catalytic activity/Vol] 9 U/L <35 [facility] Serum or plasma albumin lesly urement (mass/volume)Ordered By: Justin Becker on 05-08-2025 Albumin [Mass/Vol] 3.6 g/dL 3.4-4.8 [facility] Serum or plasma albumin/glob ulin mass ratioOrdered By: Justin Parisi on 05-08-2025 Albumin/Globulin [Mass ratio] 1.3 {ratio} 0.9-2.4 [facility] Serum or plasma alkaline william sphatase measurementOrdered By: Justin Parisi on 05-08-2025 ALP [Catalytic activity/Vol] 63 U/L 35-104 [facility] Serum or plasma calcium lesly urement (mass/volume)Ordered By: Justin Becker on 05-08-2025 Calcium [Mass/Vol] 8.3 mg/dL 7.6-11.0 [facility] Serum or plasma urea nitroge n measurement (mass/volume)Ordered By: Justin Parisi on 05-08-2025 Urea nitrogen [Mass/Vol] 34 mg/dL High 4-19 [facility] Sodium levelOrdered By: Chetan Parisi on 05-08-2025 Sodium [Moles/Vol] 141 mmol/L 133-145 [facility] Squamous epithelial cells de tection in urine sediment by light microscopyOrdered By: Justin Parisi on 05-08-2025 Epithelial cells.squamous LM Ql (Urine sed) 0-5 SEEN /hpf 5-10 [facility] Total proteinOrdered By: Vega Parisi on 05-08-2025 Protein [Mass/Vol] 6.2 g/dL 5.9-8.4 [facility] Urinalysis, Completeon 05-08 EPI,SQUAMOUS 0-5 SEEN Normal 5-10 [facility] Comment on above: Order Comment: BONNIE TER SPECIMEN Performed By: #### L 400.0001 ####[facility] [address] [place], [address] BACTERIA 0 SEEN Normal None Seen [facility] Comment on above: Order Comment: BONNIE TER SPECIMEN Performed By: #### L 400.0001 ####[facility] [address] [place], [address] Mucus Ql (Urine sed) 0 SEEN Normal [facility] Comment on above: Order Comment: BONNIE TER SPECIMEN Performed By: #### L 400.0001 ####[facility] [address] [place], [address] RBC 0 SEEN Normal 0-5 [facility] Comment on above: Order Comment: BONNIE TER SPECIMEN Performed By: #### L 400.0001 ####[facility] [address] [place], [address] WBC 0 SEEN Normal 0-5 [facility] Comment on above: Order Comment: BONNIE TER SPECIMEN Performed By: #### L 400.0001 ####[facility] [address] [place], [address] Urine clarityOrdered By: Vega Parisi on 05-08-2025 Clarity (U) Clear Clear [facility] Urine color determinationOrd ered By: Justin Parisi on 05-08-2025 Color (U) Yellow Yellow [facility] Urine glucose detectionOrder ed By: Justin Parisi on 05-08-2025 Glucose Ql (U) 50 mg/dl High Normal [facility] Urine leukocyte esterase det ection by dipstickOrdered By: Justin Parisi on 05-08-2025 Leukocyte esterase Test strip Ql (U) Negative Negative [facility] Urine pHOrdered By: Justin Parekh on 05-08-2025 pH (U) 6.0 [pH] 5.0 - 8.0 [facility] Urine sediment bacteria coun t by microscopy (number/high power field)Ordered By: Justin Parisi on 05-08-2025 Bacteria LM.HPF (Urine sed) [#/Area] 0 /[HPF] None Seen [facility] Urine specific gravity measu rementOrdered By: Justin Parisi on 05-08-2025 Specific gravity (U) [Rel density] 1.020 1.002-1.030 [facility] Urine urobilinogen measureme ntOrdered By: [facility] County[facility]les[facility] on 05-08-2025 Urobilinogen Ql (U) Normal mg/dl Normal [facility] Venous Blood Gason Blood Gas Type ROHIT Normal [facility] Comment on above: Performed By: #### L 9000.0810 ####[facility] [address] [place], [place], [id number] CO2 [Moles/Vol] 37 mmol/L High 23-33 [facility] Comment on above: Performed By: #### L 9000.0810 ####[facility] [address] [place], [address] FI02 2.0 Normal [facility] Comment on above: Performed By: #### L 9000.0810 ####[facility] [address] [place], [address] HCO3 (Bld) [Moles/Vol] 35 mmol/L High 22-26 [facility] Comment on above: Performed By: #### L 9000.0810 ####[facility] [address] [place], [address] O2 Delivery Dev Not entered Normal [facility] Comment on above: Performed By: #### L 9000.0810 ####[facility] [address] [place], [address] SITE Not entered Normal [facility] Comment on above: Performed By: #### L 9000.0810 ####[facility] [address] [place], [address] VBG BE 8 mmol/L High -1.0-3.5 [facility] Comment on above: Performed By: #### L 9000.0810 ####[facility] [address] [place], [address] VBG pCO2 67.0 mmHg High 41-51 [facility] Comment on above: Performed By: #### L 9000.0810 ####[facility] [address] [place], [place], [id number] VBG pH 7.32 Normal 7.32-7.42 [facility] Comment on above: Performed By: #### L 9000.0810 ####[facility] [address] [place], [address] VBG PO2 27 mmHg Normal 25-40 [facility] Comment on above: Performed By: #### L 9000.0810 ####[facility] [address] [place], [address] VBG SO2 44 Low 50-70 [facility] Comment on above: Performed By: #### L 9000.0810 ####[facility] [address] [place], [address] Venous blood base excess allyn surementOrdered By: Justin Parisi on 05-08-2025 Base excess Calc (BldV) [Moles/Vol] 8 mmol/L High -1.0-3.5 [facility] Venous blood bicarbonate allyn surementOrdered By: Justin Parisi on 05-08-2025 HCO3 (Bld) [Moles/Vol] 35 mmol/L High 22-26 [facility] Venous blood oxygen saturati on measurementOrdered By: Justin Parisi on 05-08-2025 Oxygen saturation in Blood 44 % Low 50-70 [facility] Venous blood pH measurementO rdered By: Justin Parisi on 05-08-2025 pH (BldV) 7.32 [pH] 7.32-7.42 [facility] Venous blood partial pressur e of carbon dioxide measurementOrdered By: Justin Parisi on 05-08-2025 CO2 (BldV) [Partial pressure] 67.0 mm[Hg] High 41-51 [facility] Venous blood partial pressur e of oxygen measurementOrdered By: Justin Becker on 05-08-2025 Oxygen (BldV) [Partial pressure] 27 mm[Hg] 25-40 [facility] White blood cell (WBC) count Ordered By: Justin Parisi on 05-08-2025 WBC (Bld) [#/Vol] 5.9 10*3/uL 4.4-11.0 [facility] White blood cell countOrdere d By: Justin Parisi on 05-08-2025 White blood cell count 0 SEEN /hpf 0-5 [facility] Potassiumon 04-11-2025 Potassium [Moles/Vol] 3.7 mmol/L Normal 3.3-5.1 [facility] Comment on above: Performed By: #### L 501.5600 ####[facility] [address] [place], [address] Potassium measurement (mass/ volume)Ordered By: Christy Fontenot on 04-11-2025 Potassium (Unsp spec) [Mass/Vol] 3.7 mmol/L 3.3-5.1 [facility] 12 Lead EKGon 04-09-2025 12 Lead EKG Normal [facility] Anion gap in Serum or Plasma Ordered By: Milind Heath on 04-09-2025 Anion gap [Moles/Vol] 8 mmol/L 5-15 [facility] BUN/creatinine ratioOrdered By: Milind Heath on 04-09-2025 Urea nitrogen/Creatinine [Mass ratio] 5.6 mg/mg Low 10-20 [facility] Basic Metabolic Profile (BMP )on 04-09-2025 BUN/CRE 5.6 RATIO Low 10-20 [facility] Comment on above: Performed By: #### L 500.2500, L501.5200 ####[facility] [address] [place], [address] Calcium [Mass/Vol] 9.2 mg/dL Normal 7.6-11.0 [facility] Comment on above: Performed By: #### L 500.2500, L501.5200 ####[facility] [address] [place], [address] Chloride [Moles/Vol] 102 mmol/L Normal 98-108 [facility] Comment on above: Performed By: #### L 500.2500, L501.5200 ####[facility] [address] [place], [address] CO2 [Moles/Vol] 31.4 mmol/L Normal 21.0-32.0 [facility] Comment on above: Performed By: #### L 500.2500, L501.5200 ####[facility] [address] [place], [address] Creatinine [Mass/Vol] 3.39 mg/dL High 0.70-1.20 [facility] Comment on above: Performed By: #### L 500.2500, L501.5200 ####[facility] [address] [place], [address] GAP 8 Normal 5-15 [facility] Comment on above: Performed By: #### L 500.2500, L501.5200 ####[facility] [address] [place], [address] GFR/1.73 sq M.predicted among non-blacks MDRD (S/P/Bld) [Vol rate/Area] 14 mL/min/{1.73_m2} Low >60 [facility] Comment on above: Result Comment: mL/m in/1.73m2 CKD-EPI Creatinine Equation (2020) Performed By: #### L 500.2500, L501.5200 ####[facility] [address] [place], [address] Glucose [Mass/Vol] 151 mg/dL High 70-99 [facility] Comment on above: Performed By: #### L 500.2500, L501.5200 ####[facility] [address] [place], [address] Potassium [Moles/Vol] 2.8 mmol/L Low 3.3-5.1 [facility] Comment on above: Result Comment: Hemo lysis present, Results??could be affected.?? Performed By: #### L 500.2500, L501.5200 ####[facility] [address] [place], [address] Sodium [Moles/Vol] 142 mmol/L Normal 133-145 [facility] Comment on above: Performed By: #### L 500.2500, L501.5200 ####[facility] [address] [place], [address] Urea nitrogen [Mass/Vol] 19 mg/dL Normal 4-19 [facility] Comment on above: Performed By: #### L 500.2500, L501.5200 ####[facility] [address] [place], [address] Carbon dioxide, total [Moles /volume] in Central venous bloodOrdered By: Milind Heath on 04-09-2025 CO2 [Moles/Vol] 31.4 mmol/L 21.0-32.0 [facility] Chloride assayOrdered By: Britton Heath on 04-09-2025 Chloride [Moles/Vol] 102 mmol/L 98-108 [facility] Emergency Department Summary on 04-09-2025 Emergency Department Summary Normal [facility] Glomerular filtration rate ( GFR) estimation/1.73 sq m using serum, plasma, or whole bOrdered By: Milind Heath on 04-09-2025 GFR/1.73 sq M.predicted among non-blacks MDRD (S/P/Bld) [Vol rate/Area] 14 mL/min/{1.73_m2} Low >60 [facility] Comment on above: mL/min/1.73m2 CKD-EP I Creatinine Equation (2020) Magnesiumon 04-09-2025 Magnesium [Mass/Vol] 2.2 mg/dL Normal 1.5-2.2 [facility] Comment on above: Performed By: #### L 500.2500, L501.5200 ####[facility] [address] [place], [place], [address] Magnesium measurement (mass/ volume)Ordered By: Milind Heath on 04-09-2025 Magnesium (Unsp spec) [Mass/Vol] 2.2 mg/dL 1.5-2.2 [facility] Potassiumon 04-09-2025 Potassium [Moles/Vol] 2.3 mmol/L Invalid Interpretation Code 3.3-5.1 [facility] Comment on above: Result Comment: Crit ical Result(s) Called at:1140 by:??August Ibanez to Dr. Alvarez. Results read back by same. Performed By: #### L 501.5600 ####[facility] [address] [place], [place], [address] Potassium measurement (mass/ volume)Ordered By: Milind Heath on 04-09-2025 Potassium (Unsp spec) [Mass/Vol] 2.8 mmol/L Low 3.3-5.1 [facility] Comment on above: Hemolysis present, R esults could be affected. Potassium measurement (mass/ volume)Ordered By: Christy Fontenot on 04-09-2025 Potassium (Unsp spec) [Mass/Vol] 2.3 mmol/L Low 3.3-5.1 [facility] Comment on above: Critical Result(s) C alled at:1140 by: August Ibanez to Dr. Sarah Fontenot. Results read back by same. Serum creatinine measurement (mass/volume)Ordered By: Milind Heath on 04-09-2025 Creatinine [Mass/Vol] 3.39 mg/dL High 0.70-1.20 [facility] Serum glucose measurement (m ass/volume)Ordered By: Milind Heath on 04-09-2025 Glucose [Mass/Vol] 151 mg/dL High 70-99 [facility] Serum or plasma calcium lesly urement (mass/volume)Ordered By: Milind Heath on 04-09-2025 Calcium [Mass/Vol] 9.2 mg/dL 7.6-11.0 [facility] Serum or plasma urea nitroge n measurement (mass/volume)Ordered By: Milind Heath on 04-09-2025 Urea nitrogen [Mass/Vol] 19 mg/dL - [facility] Sodium levelOrdered By: Milind Heath on 04-09-2025 Sodium [Moles/Vol] 142 mmol/L 133-145 [facility] Surgery Visit Reporton 03-22 Surgery Visit Report Normal [facility] Endocrinology Visit Reporton 01-27-2025 Endocrinology Visit Report Normal [facility] Chest without Contraston Chest without Contrast Normal [facility] Surgery Visit Reporton 01-11 Surgery Visit Report Normal [facility] Basic Metabolic Profile (BMP )on 01-07-2025 BUN Normal 02-19 [facility] Comment on above: Result Comment: Canc elled via OM: Order cancelled - Patient discharged Performed By: #### L 500.2500, L100.0100 ####[facility] [address] [place], [address] BUN/CRE Normal - [facility] Comment on above: Result Comment: Canc elled via OM: Order cancelled - Patient discharged Performed By: #### L 500.2500, L100.0100 ####[facility] [address] [place], [address] Calcium Normal 7.6-11.0 [facility] Comment on above: Result Comment: Canc elled via OM: Order cancelled - Patient discharged Performed By: #### L 500.2500, L100.0100 ####[facility] [address] [place], [address] CL Normal 98-108 [facility] Comment on above: Result Comment: Canc elled via OM: Order cancelled - Patient discharged Performed By: #### L 500.2500, L100.0100 ####[facility] [address] [place], [address] CO2 Normal 21.0-32.0 [facility] Comment on above: Result Comment: Canc elled via OM: Order cancelled - Patient discharged Performed By: #### L 500.2500, L100.0100 ####[facility] [address] [place], [address] CREAT,SERUM Normal 0.70-1.20 [facility] Comment on above: Result Comment: Canc elled via OM: Order cancelled - Patient discharged Performed By: #### L 500.2500, L100.0100 ####[facility] [address] [place], [address] eGFR Normal >60 [facility] Comment on above: Result Comment: Canc elled via OM: Order cancelled - Patient discharged Performed By: #### L 500.2500, L100.0100 ####[facility] [address] [place], [address] GAP Normal 5-15 [facility] Comment on above: Result Comment: Canc elled via OM: Order cancelled - Patient discharged Performed By: #### L 500.2500, L100.0100 ####[facility] [address] [place], [address] GLU Normal 70-99 [facility] Comment on above: Result Comment: Canc elled via OM: Order cancelled - Patient discharged Performed By: #### L 500.2500, L100.0100 ####[facility] [address] [place], [address] Potassium Normal 3.3-5.1 [facility] Comment on above: Result Comment: Canc elled via OM: Order cancelled - Patient discharged Performed By: #### L 500.2500, L100.0100 ####[facility] [address] [place], [address] Basic Metabolic Profile (BMP) Normal 133-145 [facility] Comment on above: Result Comment: Canc elled via OM: Order cancelled - Patient discharged Performed By: #### L 500.2500, L100.0100 ####[facility] [address] [place], [address] CBC W/Diff, Automatedon 03-0 -2024 Absolute Neut Normal 2.0-7.7 [facility] Comment on above: Result Comment: Canc elled via OM: Order cancelled - Patient discharged Performed By: #### L 500.2500, L100.0100 ####[facility] [address] [place], [address] HCT Normal 37-47 [facility] Comment on above: Result Comment: Canc elled via OM: Order cancelled - Patient discharged Performed By: #### L 500.2500, L100.0100 ####[facility] [address] [place], [address] HGB Normal 12.0-15.0 [facility] Comment on above: Result Comment: Canc elled via OM: Order cancelled - Patient discharged Performed By: #### L 500.2500, L100.0100 ####[facility] [address] [place], [address] MCH Normal 27.0-32.0 [facility] Comment on above: Result Comment: Canc elled via OM: Order cancelled - Patient discharged Performed By: #### L 500.2500, L100.0100 ####[facility] [address] [place], [address] MCHC Normal 32-36 [facility] Comment on above: Result Comment: Canc elled via OM: Order cancelled - Patient discharged Performed By: #### L 500.2500, L100.0100 ####[facility] [address] [place], [address] MCV Normal 81-99 [facility] Comment on above: Result Comment: Canc elled via OM: Order cancelled - Patient discharged Performed By: #### L 500.2500, L100.0100 ####[facility] [address] [place], [address] NEUT% Normal 47-70 [facility] Comment on above: Result Comment: Canc elled via OM: Order cancelled - Patient discharged Performed By: #### L 500.2500, L100.0100 ####[facility] [address] [place], [address] PLT Normal 150-450 [facility] Comment on above: Result Comment: Canc elled via OM: Order cancelled - Patient discharged Performed By: #### L 500.2500, L100.0100 ####[facility] [address] [place], [address] RBC Normal 4.2-5.4 [facility] Comment on above: Result Comment: Canc elled via OM: Order cancelled - Patient discharged Performed By: #### L 500.2500, L100.0100 ####[facility] [address] [place], [address] RDW CV Normal 11.6-14.6 [facility] Comment on above: Result Comment: Canc elled via OM: Order cancelled - Patient discharged Performed By: #### L 500.2500, L100.0100 ####[facility] [address] [place], [address] RDW SD Normal 35.1-43.9 [facility] Comment on above: Result Comment: Canc elled via OM: Order cancelled - Patient discharged Performed By: #### L 500.2500, L100.0100 ####[facility] [address] [place], [address] WBC Normal 4.4-11.0 [facility] Comment on above: Result Comment: Canc elled via OM: Order cancelled - Patient discharged Performed By: #### L 500.2500, L100.0100 ####[facility] [address] [place], [address] Absolute lymphocyte countOrd ered By: He Cat on 01-06-2025 Lymphocytes Auto (Unsp spec) [#/Vol] 0.66 10*3/uL Low 0.83-4.51 [facility] Absolute neutrophil countOrd ered By: He Cat on 01-06-2025 Absolute neutrophil count 9.7 X10^3/uL High 2.0-7.7 [facility] Anion gap [Moles/Vol]Ordered By: He Cat on 01-06-2025 Anion gap in Serum or Plasma 12 - [facility] Anion gap in Serum or Plasma Ordered By: He Cat on 01-06-2025 Anion gap [Moles/Vol] 12 mmol/L 03-17 [facility] Automated lymphocyte count a s percentage of total leukocytesOrdered By: He Cat on 01-06-2025 Lymphocytes/100 WBC Auto (Unsp spec) 6.0 % Low - [facility] BUN/creatinine ratioOrdered By: He Cat on 01-06-2025 Urea nitrogen/Creatinine [Mass ratio] 13.0 mg/mg - [facility] BUN/creatinine ratio 13.0 RATIO - [facility] Basic Metabolic Profile (BMP )on 01-06-2025 BUN/CRE 13.0 RATIO Normal - [facility] Comment on above: Performed By: #### L 500.2500, L100.0100 ####[facility] [address] [place], [address] Calcium [Mass/Vol] 8.9 mg/dL Normal 7.6-11.0 [facility] Comment on above: Performed By: #### L 500.2500, L100.0100 ####[facility] [address] [place], [address] Chloride [Moles/Vol] 101 mmol/L Normal 98-108 [facility] Comment on above: Performed By: #### L 500.2500, L100.0100 ####[facility] [address] [place], [address] CO2 [Moles/Vol] 21.1 mmol/L Normal 21.0-32.0 [facility] Comment on above: Performed By: #### L 500.2500, L100.0100 ####[facility] [address] [place], [address] Creatinine [Mass/Vol] 3.23 mg/dL High 0.70-1.20 [facility] Comment on above: Performed By: #### L 500.2500, L100.0100 ####[facility] [address] [place], [address] ECRCL 12.75 ml/min Low 50-250 [facility] Comment on above: Performed By: #### L 500.2500, L100.0100 ####[facility] [address] [place], [address] GAP 12 Normal 5-15 [facility] Comment on above: Performed By: #### L 500.2500, L100.0100 ####[facility] [address], [address] GFR/1.73 sq M.predicted among non-blacks MDRD (S/P/Bld) [Vol rate/Area] 15 mL/min/{1.73_m2} Low >60 [facility] Comment on above: Result Comment: mL/m in/1.73m2 CKD-EPI Creatinine Equation (2020) Performed By: #### L 500.2500, L100.0100 ####[facility] [address] [place], [address] Glucose [Mass/Vol] 337 mg/dL High 70-99 [facility] Comment on above: Performed By: #### L 500.2500, L100.0100 ####[facility] [address] [place], [address] Potassium [Moles/Vol] 5.6 mmol/L High 3.3-5.1 [facility] Comment on above: Performed By: #### L 500.2500, L100.0100 ####[facility] [address] [place], [address] Sodium [Moles/Vol] 134 mmol/L Normal 133-145 [facility] Comment on above: Performed By: #### L 500.2500, L100.0100 ####[facility] [address] [place], [address] Urea nitrogen [Mass/Vol] 42 mg/dL High 4-19 [facility] Comment on above: Performed By: #### L 500.2500, L100.0100 ####[facility] [address] [place], [address] Basophil percentageOrdered B y: He Cat on 01-06-2025 Basophils/100 WBC (Bld) 0.1 % 0-1 [facility] Bedside Glucoseon 01-06-2025 FINGERSTICK GLU 374 mg/dL High 74-106 [facility] Comment on above: Result Comment: SHELLY GEMENT OF PATIENT CARE PER NURSING PROTOCOL Performed By: #### L 501.080 ####[facility] [address] [place], [address] FINGERSTICK GLU 309 mg/dL High 74-106 [facility] Comment on above: Result Comment: SHELLY GEMENT OF PATIENT CARE PER NURSING PROTOCOL Performed By: #### L 501.080 ####[facility] [address] [place], [address] CBC W/Diff, Automatedon 03-0 6-2024 Absolute Lymph 0.66 X10 3/uL Low 0.83-4.51 [facility] Comment on above: Performed By: #### L 500.2500, L100.0100 ####[facility] [address] [place], [address] Absolute Neut 9.7 X10 3/uL High 2.0-7.7 [facility] Comment on above: Performed By: #### L 500.2500, L100.0100 ####[facility] [address] [place], [address] Basophils/100 WBC (Bld) 0.1 % Normal 0-1 [facility] Comment on above: Performed By: #### L 500.2500, L100.0100 ####[facility] [address] [place], [address] Eosinophils/100 WBC (Bld) 0.1 % Normal 0-5 [facility] Comment on above: Performed By: #### L 500.2500, L100.0100 ####[facility] [address] [place], [address] Erythrocyte distribution width (RBC) [Ratio] 13.0 % Normal 11.6-14.6 [facility] Comment on above: Performed By: #### L 500.2500, L100.0100 ####[facility] [address] [place], [address] Hematocrit (Bld) [Volume fraction] 28.8 % Low 37-47 [facility] Comment on above: Performed By: #### L 500.2500, L100.0100 ####[facility] [address] [place], [address] Hemoglobin (Bld) [Mass/Vol] 9.1 g/dL Low 12.0-15.0 [facility] Comment on above: Performed By: #### L 500.2500, L100.0100 ####[facility] [address] [place], [address] IG% 1.000 High 0.0-0.9 [facility] Comment on above: Result Comment: IG% - Immature Granulocytes (promyelocytes, myelocytes andmetamyelocytes) > 1% indicates that a LEFT SHIFT is Present. Performed By: #### L 500.2500, L100.0100 ####[facility] [address] [place], [address] Lymphocytes/100 WBC (Bld) 6.0 % Low 19-41 [facility] Comment on above: Performed By: #### L 500.2500, L100.0100 ####[facility] [address] [place], [address] MCH (RBC) [Entitic mass] 30.4 pg Normal 27.0-32.0 [facility] Comment on above: Performed By: #### L 500.2500, L100.0100 ####[facility] [address] [place], [address] MCHC (RBC) [Mass/Vol] 31.6 g/dL Low 32-36 [facility] Comment on above: Performed By: #### L 500.2500, L100.0100 ####[facility] [address] [place], [address] MCV (RBC) [Entitic vol] 96.3 fL Normal 81-99 [facility] Comment on above: Performed By: #### L 500.2500, L100.0100 ####[facility] [address] [place], [address] Monocytes/100 WBC (Bld) 4.8 % Normal 0-10 [facility] Comment on above: Performed By: #### L 500.2500, L100.0100 ####[facility] [address] [place], [address] Neutrophils/100 WBC (Bld) 88.0 % High 47-70 [facility] Comment on above: Performed By: #### L 500.2500, L100.0100 ####[facility] [address] [place], [address] Nucleated RBC (Bld) [#/Vol] 0 10*3/uL Normal 0-5 [facility] Comment on above: Performed By: #### L 500.2500, L100.0100 ####[facility] [address] [place], [address] Platelet mean volume (Bld) [Entitic vol] 9.8 fL Normal 6.2-12.0 [facility] Comment on above: Performed By: #### L 500.2500, L100.0100 ####[facility] [address] [place], [address] Platelets (Bld) [#/Vol] 229 10*3/uL Normal 150-450 [facility] Comment on above: Performed By: #### L 500.2500, L100.0100 ####[facility] [address] [place], [address] RBC (Bld) [#/Vol] 2.99 10*6/uL Low 4.2-5.4 [facility] Comment on above: Performed By: #### L 500.2500, L100.0100 ####[facility] [address] [place], [address] RDW SD 45.0 fl High 35.1-43.9 [facility] Comment on above: Performed By: #### L 500.2500, L100.0100 ####[facility] [address] [place], [address] WBC (Bld) [#/Vol] 11.0 10*3/uL Normal 4.4-11.0 [facility] Comment on above: Performed By: #### L 500.2500, L100.0100 ####[facility] [address] [place], [place], [id number] Calcium [Mass/Vol]Ordered By : He Cat on 01-06-2025 Serum or plasma calcium measurement (mass/volume) 8.9 mg/dL 7.6-11.0 [facility] Carbon dioxide, total [Moles /volume] in Central venous bloodOrdered By: He Cat on 01-06-2025 CO2 [Moles/Vol] 21.1 mmol/L 21.0-32.0 [facility] Carbon dioxide, total [Moles/volume] in Central venous blood 21.1 mmol/L 21.0-32.0 [facility] Chloride assayOrdered By: Sarbjit Cat on 01-06-2025 Chloride [Moles/Vol] 101 mmol/L 98-108 [facility] Chloride assay 101 mmol/L 98-108 [facility] Creatinine [Mass/Vol]Ordered By: He Cat on 01-06-2025 Serum creatinine measurement (mass/volume) 3.23 mg/dL High 0.70-1.20 [facility] Discharge Instructionon 03 Discharge Instruction Normal [facility] Eosinophil percentageOrdered By: He Cat on 01-06-2025 Eosinophils/100 WBC (Bld) 0.1 % 0-5 [facility] Eosinophil percentage 0.1 % 0-1 [facility] Erythrocyte distribution wid th (RBC) [Entitic vol]Ordered By: He Cat on 01-06-2025 Erythrocyte distribution width standard deviation 45.0 fl High 35.1-43.9 [facility] Erythrocyte distribution wid th (RBC) [Ratio]Ordered By: He Cat on 01-06-2025 Erythrocyte distribution width ratio 13.0 % 11.6-14.6 [facility] Erythrocyte distribution wid th ratioOrdered By: He Cat on 01-06-2025 Erythrocyte distribution width (RBC) [Ratio] 13.0 % 11.6-14.6 [facility] Erythrocyte distribution wid th standard deviationOrdered By: He Cat on 01-06-2025 Erythrocyte distribution width (RBC) [Ratio] 45.0 fl High 35.1-43.9 [facility] Estimation of creatinine abdulkadir aranceOrdered By: He Cat on 01-06-2025 Estimation of creatinine clearance 12.75 ml/min Low 50-250 [facility] GFR/1.73 sq M.predicted kris g non-blacks MDRD (S/P/Bld) [Vol rate/Area]Ordered By: He Cat on 01-06-2025 Glomerular filtration rate (GFR) estimation/1.73 sq m using serum, plasma, or whole b 15 Low >60 [facility] Glomerular filtration rate ( GFR) estimation/1.73 sq m using serum, plasma, or whole bOrdered By: He Cat on 01-06-2025 GFR/1.73 sq M.predicted among non-blacks MDRD (S/P/Bld) [Vol rate/Area] 15 mL/min/{1.73_m2} Low >60 [facility] Glucose [Mass/Vol]Ordered By : He Cat on 01-06-2025 Serum glucose measurement (mass/volume) 337 mg/dL High 70-99 [facility] Glucose measurement at bedsi deOrdered By: He Cat on 01-06-2025 Glucose [Mass/Vol] 374 mg/dL High 74-106 [facility] Glucose measurement at bedside 374 mg/dL High 74-106 [facility] Hematocrit Auto (Bld) [Volum e fraction]Ordered By: He Cat on 01-06-2025 Hematocrit (Bld) [Volume fraction] 28.8 % Low 37-47 [facility] Automated blood hematocrit (percentage) 28.8 % Low 37-47 [facility] Hemoglobin measurementOrdere d By: He Cat on 01-06-2025 Hemoglobin (Bld) [Mass/Vol] 9.1 g/dL Low 12.0-15.0 [facility] Hemoglobin measurement 9.1 g/dL Low 12.0-15.0 [facility] Immature granulocytes/100 WB C Auto (Bld)Ordered By: He Cta on 01-06-2025 Immature granulocytes/100 WBC (Bld) 1.000 % High 0.0-0.9 [facility] Automated immature granulocyte percentage 1.000 % High 0.0-0.9 [facility] Lymphocytes Auto (Unsp spec) [#/Vol]Ordered By: He Cat on 01-06-2025 Absolute lymphocyte count 0.66 X10^3/uL Low 0.83-4.51 [facility] Lymphocytes/100 WBC Auto (Un sp spec)Ordered By: He Cat on 01-06-2025 Automated lymphocyte count as percentage of total leukocytes 6.0 % Low 19-41 [facility] MCV (RBC) [Entitic vol]Order ed By: He Cat on 01-06-2025 MCV (mean corpuscular volume) determination 96.3 fL 81-99 [facility] MCV (mean corpuscular volume ) determinationOrdered By: He Cat on 01-06-2025 MCV (RBC) [Entitic vol] 96.3 fL 81-99 [facility] Mean corpuscular hemoglobin (MCH) determinationOrdered By: He Cat on 01-06-2025 MCH (RBC) [Entitic mass] 30.4 pg 27.0-32.0 [facility] Mean corpuscular hemoglobin (MCH) determination 30.4 pg 27.0-32.0 [facility] Mean corpuscular hemoglobin concentration (MCHC) determinationOrdered By: He Cat on 01-06-2025 Mean corpuscular hemoglobin concentration (MCHC) determination 31.6 g/dL Low 32-36 [facility] Mean platelet volume determi nationOrdered By: He Cat on 01-06-2025 Mean platelet volume determination 9.8 fl 6.2-12.0 [facility] Monocyte percentageOrdered B y: He Cat on 01-06-2025 Monocytes/100 WBC (Bld) 4.8 % 0-10 [facility] Monocyte percentage 4.8 % 0-10 [facility] Neutrophil percentageOrdered By: He Cat on 01-06-2025 Neutrophils/100 WBC (Bld) 88.0 % High 47-70 [facility] Neutrophil percentage 88.0 % High 47-70 [facility] Nucleated red blood cell per centageOrdered By: He Cat on 01-06-2025 Nucleated red blood cell percentage 0 % 0-5 [facility] Platelet countOrdered By: Sarbjit Cat on 01-06-2025 Platelets (Bld) [#/Vol] 229 10*3/uL 150-450 [facility] Platelet count 229 K/mm3 150-450 [facility] Potassium (Unsp spec) [Mass/ Vol]Ordered By: He Cat on 01-06-2025 Potassium measurement (mass/volume) 5.6 mmol/L High 3.3-5.1 [facility] Potassium measurement (mass/ volume)Ordered By: He Cat on 01-06-2025 Potassium (Unsp spec) [Mass/Vol] 5.6 mmol/L High 3.3-5.1 [facility] RBC Auto (Bld) [#/Vol]Ordere d By: He Cat on 01-06-2025 RBC (Bld) [#/Vol] 2.99 10*6/uL Low 4.2-5.4 [facility] Automated blood erythrocyte count 2.99 M/mm3 Low 4.2-5.4 [facility] Serum creatinine measurement (mass/volume)Ordered By: He Cat on 01-06-2025 Creatinine [Mass/Vol] 3.23 mg/dL High 0.70-1.20 [facility] Serum glucose measurement (m ass/volume)Ordered By: He Cat on 01-06-2025 Glucose [Mass/Vol] 337 mg/dL High 70-99 [facility] Serum or plasma calcium lesly urement (mass/volume)Ordered By: He Cat on 01-06-2025 Calcium [Mass/Vol] 8.9 mg/dL 7.6-11.0 [facility] Serum or plasma urea nitroge n measurement (mass/volume)Ordered By: He Cat on 01-06-2025 Urea nitrogen [Mass/Vol] 42 mg/dL High 4-19 [facility] Sodium levelOrdered By: Samantha Cat on 01-06-2025 Sodium [Moles/Vol] 134 mmol/L 133-145 [facility] Sodium level 134 mmol/L 133-145 [facility] Urea nitrogen [Mass/Vol]Orde red By: He Cat on 01-06-2025 Serum or plasma urea nitrogen measurement (mass/volume) 42 mg/dL High 4-19 [facility] White blood cell (WBC) count Ordered By: He Cat on 01-06-2025 WBC (Bld) [#/Vol] 11.0 10*3/uL 4.4-11.0 [facility] White blood cell (WBC) count 11.0 K/mm3 4.4-11.0 [facility] Albumin [Mass/Vol]Ordered By : Christy Fontenot on 01-05-2025 Serum or plasma albumin measurement (mass/volume) 3.4 g/dL 3.4-4.8 [facility] Arterial patency Wrist arter y --pre arterial punctureOrdered By: He Cat on 01-05-2025 Assessment of wrist artery patency prior to arterial puncture Positive [facility] Assessment of wrist artery p atency prior to arterial punctureOrdered By: He Cat on 01-05-2025 Arterial patency Wrist artery --pre arterial puncture Positive [facility] Base excess Calc (BldV) [Mol es/Vol]Ordered By: He Cat on 01-05-2025 Blood base excess determination -1 mmol/L -2-2 [facility] Bedside Glucoseon 01-05-2025 FINGERSTICK GLU 338 mg/dL High [address] [facility] Comment on above: Result Comment: SHELLY GEMENT OF PATIENT CARE PER NURSING PROTOCOL Performed By: #### L 501.080 ####[facility] [address] [place], [place], [id number]) FINGERSTICK GLU 292 mg/dL High [address] [facility] Comment on above: Result Comment: SHELLY GEMENT OF PATIENT CARE PER NURSING PROTOCOL Performed By: #### L 501.080 ####[facility] [address] [place], [address] FINGERSTICK GLU 419 mg/dL High [address] [facility] Comment on above: Result Comment: SHELLY GEMENT OF PATIENT CARE PER NURSING PROTOCOL Performed By: #### L 501.080 ####[facility] [address] [place], [address] FINGERSTICK GLU 286 mg/dL High 74-106 [facility] Comment on above: Result Comment: SHELLY GEMENT OF PATIENT CARE PER NURSING PROTOCOL Performed By: #### L 501.080 ####[facility] [address] [place], [address] Blood Gases by [facility] 025 TINY TEST Positive Normal [facility] Comment on above: Performed By: #### L 9000.0800 ####[facility] [address] [place], [address] Base excess Calc (Bld) [Moles/Vol] -1 mmol/L Normal -2 to +2 [facility] Comment on above: Performed By: #### L 9000.0800 ####[facility] [address] [place], [address] Blood Gas Type ART Normal [facility] Comment on above: Performed By: #### L 9000.0800 ####[facility] [address] [place], [address] Comment Normal [facility] Comment on above: Result Comment: Bipa p settings of IPAP 18, EPAP 8, fio2 30 % Performed By: #### L 9000.0800 ####[facility] [address] [place], [address] FI02 30.0 Normal [facility] Comment on above: Performed By: #### L 9000.0800 ####[facility] [address] [place], [address] Mode Not entered Normal [facility] Comment on above: Performed By: #### L 9000.0800 ####[facility] [address] [place], [address] O2 Delivery Dev BiPAP Normal [facility] Comment on above: Performed By: #### L 9000.0800 ####[facility] [address] [place], [address] pCO2 55.0 mmHg High 35-45 [facility] Comment on above: Performed By: #### L 9000.0800 ####[facility] [address] [place], [address] pH (Bld) 7.28 [pH] Low 7.35-7.45 [facility] Comment on above: Performed By: #### L 9000.0800 ####[facility] [address] [place], [address] PO2 87 mmHG Normal 75-100 [facility] Comment on above: Performed By: #### L 9000.0800 ####[facility] [address] [place], [address] SITE L Radial Normal [facility] Comment on above: Performed By: #### L 9000.0800 ####[facility] [address] [place], [address] SO2 95 Normal 95-99 [facility] Comment on above: Performed By: #### L 9000.0800 ####[facility] [address] [place], [address] Blood base excess determinat ionOrdered By: He Cat on 01-05-2025 Base excess Calc (BldV) [Moles/Vol] -1 mmol/L -2-2 [facility] Blood bicarbonate measuremen tOrdered By: He Cat on 01-05-2025 HCO3 (Bld) [Moles/Vol] 25.6 mmol/L Normal 22-26 [facility] Comment on above: Performed By: #### L 9000.0800 ####[facility] [address] [place], [address] Blood bicarbonate measurement 25.6 mmol/L 22-26 [facility] CBC-Complete Blood Cnt No Di ffon 01-05-2025 Erythrocyte distribution width (RBC) [Ratio] 12.9 % Normal 11.6-14.6 [facility] Comment on above: Performed By: #### L 100.0500, L500.3600 ####[facility] [address] [place], [address] Hematocrit (Bld) [Volume fraction] 29.6 % Low 37-47 [facility] Comment on above: Performed By: #### L 100.0500, L500.3600 ####[facility] [address] [place], [address] Hemoglobin (Bld) [Mass/Vol] 9.4 g/dL Low 12.0-15.0 [facility] Comment on above: Performed By: #### L 100.0500, L500.3600 ####[facility] [address] [place], [address] MCH (RBC) [Entitic mass] 30.3 pg Normal 27.0-32.0 [facility] Comment on above: Performed By: #### L 100.0500, L500.3600 ####[facility] [address] [place], [address] MCHC (RBC) [Mass/Vol] 31.8 g/dL Low 32-36 [facility] Comment on above: Performed By: #### L 100.0500, L500.3600 ####[facility] [address] [place], [address] MCV (RBC) [Entitic vol] 95.5 fL Normal 81-99 [facility] Comment on above: Performed By: #### L 100.0500, L500.3600 ####[facility] [address] [place], [address] Platelet mean volume (Bld) [Entitic vol] 10.0 fL Normal 6.2-12.0 [facility] Comment on above: Performed By: #### L 100.0500, L500.3600 ####[facility] [address] [place], [address] Platelets (Bld) [#/Vol] 235 10*3/uL Normal 150-450 [facility] Comment on above: Performed By: #### L 100.0500, L500.3600 ####[facility] [address] [place], [address] RBC (Bld) [#/Vol] 3.10 10*6/uL Low 4.2-5.4 [facility] Comment on above: Performed By: #### L 100.0500, L500.3600 ####[facility] [address] [place], [address] RDW SD 44.2 fl High 35.1-43.9 [facility] Comment on above: Performed By: #### L 100.0500, L500.3600 ####[facility] [address] [place], [address] WBC (Bld) [#/Vol] 10.5 10*3/uL Normal 4.4-11.0 [facility] Comment on above: Performed By: #### L 100.0500, L500.3600 ####[facility] [address] [place], [address] Consultation - Intensiviston 01-05-2025 Consultation - Director Of [employer] Normal [facility] Determination of fraction of inspired oxygenOrdered By: He Cat on 01-05-2025 Determination of fraction of inspired oxygen 30.0 [facility] HbA1c (Bld) [Mass fraction]O rdered By: He Cat on 01-05-2025 Hemoglobin A1c percentage 6.6 % >5.7 [facility] Hemoglobin A1con 01-05-2025 HbA1c (Bld) [Mass fraction] 6.6 % Normal <=5.6 [facility] Comment on above: Performed By: #### L 501.9985 ####[facility] [address] [place], [place], [address] Hemoglobin A1c percentageOrd ered By: He Cat on 01-05-2025 HbA1c (Bld) [Mass fraction] 6.6 % >5.7 [facility] L509.7001on 01-05-2025 Procalcitonin 2.31 ng/mL High <=0.10 [facility] Comment on above: Result Comment: Inte [...] Performed By: #### L 509.7001 ####[facility] [address] [place], [place], [address] Measurement, pHOrdered By: Isabelle Cat on 01-05-2025 pH (Unsp spec) 7.28 [pH] Low 7.35-7.45 [facility] No Panel InformationOrdered By: He Cat on 01-05-2025 ART [facility] L Radial [facility] Not entered [facility] BiPAP [facility] See comment [facility] No Panel InformationOrdered By: Terrance Alva on 01-05-2025 2.31 ng/mL High <0.11 [facility] Oxygen saturation measuremen tOrdered By: He Cat on 01-05-2025 Oxygen saturation measurement 95 % 95-99 [facility] Partial pressure of carbon d ioxide measurementOrdered By: He Cat on 01-05-2025 Partial pressure of carbon dioxide measurement 55.0 mmHg High 35-45 [facility] Partial pressure of oxygen m easurementOrdered By: He Cat on 01-05-2025 Partial pressure of oxygen measurement 87 mmHG 75-100 [facility] RESPIRATORY PANEL MOLECULARo n 01-05-2025 RP PANEL Normal [facility] Comment on above: Performed By: #### M 100.638 ####[facility] [address] [place], [address] Renal Profileon 01-05-2025 Albumin [Mass/Vol] 3.4 g/dL Normal 3.4-4.8 [facility] Comment on above: Performed By: #### L 100.0500, L500.3600 ####[facility] [address] [place], [address] BUN/CRE 10.7 RATIO Normal 10-20 [facility] Comment on above: Performed By: #### L 100.0500, L500.3600 ####[facility] [address] [place], [address] Calcium [Mass/Vol] 9.2 mg/dL Normal 7.6-11.0 [facility] Comment on above: Performed By: #### L 100.0500, L500.3600 ####[facility] [address] [place], [address] Chloride [Moles/Vol] 95 mmol/L Low 98-108 [facility] Comment on above: Performed By: #### L 100.0500, L500.3600 ####[facility] [address] [place], [address] CO2 [Moles/Vol] 23.6 mmol/L Normal 21.0-32.0 [facility] Comment on above: Performed By: #### L 100.0500, L500.3600 ####[facility] [address] [place], [address] Creatinine [Mass/Vol] 3.67 mg/dL High 0.70-1.20 [facility] Comment on above: Performed By: #### L 100.0500, L500.3600 ####[facility] [address] [place], [address] ECRCL 11.77 ml/min Low 50-250 [facility] Comment on above: Performed By: #### L 100.0500, L500.3600 ####[facility] [address] [place], [address] GAP 11 Normal 5-15 [facility] Comment on above: Performed By: #### L 100.0500, L500.3600 ####[facility] [address], [address] GFR/1.73 sq M.predicted among non-blacks MDRD (S/P/Bld) [Vol rate/Area] 13 mL/min/{1.73_m2} Low >60 [facility] Comment on above: Result Comment: mL/m in/1.73m2 CKD-EPI Creatinine Equation (2020) Performed By: #### L 100.0500, L500.3600 ####[facility] [address] [place], [address] Glucose [Mass/Vol] 301 mg/dL High 70-99 [facility] Comment on above: Performed By: #### L 100.0500, L500.3600 ####[facility] [address] [place], [address] Potassium [Moles/Vol] 6.1 mmol/L Invalid Interpretation Code 3.3-5.1 [facility] Comment on above: Result Comment: Crit ical Result(s) Called at 01/05/2025-09:34 by Kalia Tong??Results read back by same. Performed By: #### L 100.0500, L500.3600 ####[facility] [address] [place], [address] Sodium [Moles/Vol] 130 mmol/L Low 133-145 [facility] Comment on above: Performed By: #### L 100.0500, L500.3600 ####[facility] [address] [place], [address] Urea nitrogen [Mass/Vol] 39 mg/dL High 4-19 [facility] Comment on above: Performed By: #### L 100.0500, L500.3600 ####[facility] [address] [place], [place], [id number] Respiratory pathogens detect ion panel by molecular detection methodOrdered By: Terrance Alva on 01-05-2025 Respiratory pathogens DNA and RNA panel MARISA+probe (Resp) [facility] Serum or plasma albumin lesly urement (mass/volume)Ordered By: Christy Fontenot on 01-05-2025 Albumin [Mass/Vol] 3.4 g/dL 3.4-4.8 [facility] Serum or plasma vancomycin m easurement (mass/volume)Ordered By: He Cat on 01-05-2025 Vancomycin [Mass/Vol] 15.1 ug/mL High 0.0-15.0 [facility] Serum phosphorus measurement Ordered By: Christy Fontenot on 01-05-2025 Serum phosphorus measurement 4.3 mg/dL 2.7-4.5 [facility] Total carbon dioxide measure mentOrdered By: He Cat on 01-05-2025 CO2 [Moles/Vol] 27 mmol/L Normal [facility] Comment on above: Performed By: #### L 9000.0800 ####[facility] [address] [place], [place], [id number] Total carbon dioxide measurement 27 mmol/L [facility] Vancomycin [Mass/Vol]Ordered By: He Cat on 01-05-2025 Serum or plasma vancomycin measurement (mass/volume) 15.1 ug/mL High 0.0-15.0 [facility] Vancomycin, Random Levelon 0 01-05-2025 VANCO, RANDOM 15.1 ug/mL High 0.0-15.0 [facility] Comment on above: Order Comment: Comme nts: BEFORE HEMODIALYSIS Result Comment: VANC OMYCIN STANDARD DRUG THERAPY: CRITICAL VALUE IS > 15.0 mg/LVANCOMYCIN HIGH INTENSITY THERAPY: CRITICAL VALUE IS > 20.0 mg/LPLEASE CONTACT PHARMACY SERVICES (#[id number]) FOR INTERPRETATIONOF RESULTS. THIS RESULT DOES NOT REPRESENT A PEAK OR TROUGHLEVEL FOR THIS DRUG. Performed By: #### L 501.8850 ####[facility] [address] [place], [address] pH (Unsp spec)Ordered By: Sarbjit Cat on 01-05-2025 Measurement, pH 7.28 Low 7.35-7.45 [facility] Basic Metabolic Profile (BMP )on 01-04-2025 BUN/CRE 9.2 RATIO Low 10-20 [facility] Comment on above: Performed By: #### L 100.0100, L500.2500 ####[facility] [address] [place], [address] Calcium [Mass/Vol] 9.8 mg/dL Normal 7.6-11.0 [facility] Comment on above: Performed By: #### L 100.0100, L500.2500 ####[facility] [address] [place], [address] Chloride [Moles/Vol] 94 mmol/L Low 98-108 [facility] Comment on above: Performed By: #### L 100.0100, L500.2500 ####[facility] [address] [place], [address] CO2 [Moles/Vol] 26.9 mmol/L Normal 21.0-32.0 [facility] Comment on above: Performed By: #### L 100.0100, L500.2500 ####[facility] [address] [place], [address] Creatinine [Mass/Vol] 4.27 mg/dL High 0.70-1.20 [facility] Comment on above: Performed By: #### L 100.0100, L500.2500 ####[facility] [address] [place], [address] ECRCL 10.41 ml/min Low 50-250 [facility] Comment on above: Performed By: #### L 100.0100, L500.2500 ####[facility] [address] [place], [address] GAP 8 Normal 5-15 [facility] Comment on above: Performed By: #### L 100.0100, L500.2500 ####[facility] [address] [place], [address] GFR/1.73 sq M.predicted among non-blacks MDRD (S/P/Bld) [Vol rate/Area] 11 mL/min/{1.73_m2} Low >60 [facility] Comment on above: Result Comment: mL/m in/1.73m2 CKD-EPI Creatinine Equation (2020) Performed By: #### L 100.0100, L500.2500 ####[facility] [address] [place], [address] Glucose [Mass/Vol] 256 mg/dL High 70-99 [facility] Comment on above: Performed By: #### L 100.0100, L500.2500 ####[facility] [address] [place], [address] Potassium [Moles/Vol] 5.4 mmol/L High 3.3-5.1 [facility] Comment on above: Performed By: #### L 100.0100, L500.2500 ####[facility] [address] [place], [address] Sodium [Moles/Vol] 129 mmol/L Low 133-145 [facility] Comment on above: Performed By: #### L 100.0100, L500.2500 ####[facility] [address] [place], [address] Urea nitrogen [Mass/Vol] 39 mg/dL High 4-19 [facility] Comment on above: Performed By: #### L 100.0100, L500.2500 ####[facility] [address] [place], [address] Bedside Glucoseon 01-04-2025 FINGERSTICK GLU 308 mg/dL High 74-106 [facility] Comment on above: Result Comment: SHELLY GEMENT OF PATIENT CARE PER NURSING PROTOCOL Performed By: #### L 501.080 ####[facility] [address] [place], [address] FINGERSTICK GLU 133 mg/dL [address] Comment on above: Result Comment: SHELLY GEMENT OF PATIENT CARE PER NURSING PROTOCOL Performed By: #### L 501.080 ####[facility] [address] [place], [address] FINGERSTICK GLU 282 mg/dL High [address] [place] [address] Comment on above: Result Comment: SHELLY GEMENT OF PATIENT CARE PER NURSING PROTOCOL Performed By: #### L 501.080 ####[facility] [address] [place], [address] FINGERSTICK GLU 33 mg/dL Invalid Interpretation Code [address] [place] [address] Comment on above: Result Comment: Reji raphael GivenMANAGEMENT OF PATIENT CARE PER NURSING PROTOCOL Performed By: #### L 501.080 ####[facility] [address] [place], [address] FINGERSTICK GLU 37 mg/dL Invalid Interpretation Code [address] [place] [address] Comment on above: Result Comment: Snac k GivenMANAGEMENT OF PATIENT CARE PER NURSING PROTOCOL Performed By: #### L 501.080 ####[facility] [address] [place], [address] FINGERSTICK GLU 303 mg/dL High 74-106 [facility] Comment on above: Result Comment: SHELLY GEMENT OF PATIENT CARE PER NURSING PROTOCOL Performed By: #### L 501.080 ####[facility] [address] [place], [address] FINGERSTICK GLU 188 mg/dL High 74-106 [facility] Comment on above: Result Comment: SHELLY GEMENT OF PATIENT CARE PER NURSING PROTOCOL Performed By: #### L 501.080 ####[facility] [address] [place], [address] FINGERSTICK GLU 132 mg/dL High 74-106 [facility] Comment on above: Result Comment: SHELLY GEMENT OF PATIENT CARE PER NURSING PROTOCOL Performed By: #### L 501.080 ####[facility] [address] [place], [address] FINGERSTICK GLU 153 mg/dL High -106 [facility] Comment on above: Result Comment: SHELLY GEMENT OF PATIENT CARE PER NURSING PROTOCOL Performed By: #### L 501.080 ####[facility] [address] [place], [address] FINGERSTICK GLU 173 mg/dL High 74-106 [facility] Comment on above: Result Comment: SHELLY GEMENT OF PATIENT CARE PER NURSING PROTOCOL Performed By: #### L 501.080 ####[facility] [address] [place], [address] FINGERSTICK GLU 251 mg/dL High [address] [place] [address] Comment on above: Result Comment: SHELLY GEMENT OF PATIENT CARE PER NURSING PROTOCOL Performed By: #### L 501.080 ####[facility] [address] [place], [address] FINGERSTICK GLU 244 mg/dL High 74-106 [facility] Comment on above: Result Comment: SHELLY GEMENT OF PATIENT CARE PER NURSING PROTOCOL Performed By: #### L 501.080 ####[facility] [address] [place], [address] FINGERSTICK GLU 170 mg/dL High 74-106 [facility] Comment on above: Result Comment: SHELLY ENGEL OF PATIENT CARE PER NURSING PROTOCOL Performed By: #### L 501.080 ####[facility] [address] [place], [address] Blood Gases by [facility] 025 TINY TEST Positive Normal [facility] Comment on above: Performed By: #### L 9000.0800 ####[facility] [address] [place], [address] Base excess Calc (Bld) [Moles/Vol] 7 mmol/L High -2 to +2 [facility] Comment on above: Performed By: #### L 9000.0800 ####[facility] [address] [place], [address] Blood Gas Type ART Normal [facility] Comment on above: Performed By: #### L 9000.0800 ####[facility] [address] [place], [address] CO2 [Moles/Vol] 36 mmol/L Normal [facility] Comment on above: Performed By: #### L 9000.0800 ####[facility] [address] [place], [address] Comment Normal [facility] Comment on above: Result Comment: Bipa p settings of 15/8 rate of 12, fio2 30% Performed By: #### L 9000.0800 ####[facility] [address] [place], [address] FI02 30.0 Normal [facility] Comment on above: Performed By: #### L 9000.0800 ####[facility] [address] [place], [address] HCO3 (Bld) [Moles/Vol] 33.3 mmol/L High 22-26 [facility] Comment on above: Performed By: #### L 9000.0800 ####[facility] [address] [place], [address] Mode Not entered Normal [facility] Comment on above: Performed By: #### L 9000.0800 ####[facility] [address] [place], [address] O2 Delivery Dev BiPAP Normal [facility] Comment on above: Performed By: #### L 9000.0800 ####[facility] [address] [place], [address] pCO2 71.6 mmHg Invalid Interpretation Code 35-45 [facility] Comment on above: Performed By: #### L 9000.0800 ####[facility] [address] [place], [address] pH (Bld) 7.28 [pH] Low 7.35-7.45 [facility] Comment on above: Performed By: #### L 9000.0800 ####[facility] [address] [place], [address] PO2 69 mmHG Low 75-100 [facility] Comment on above: Performed By: #### L 9000.0800 ####[facility] [address] [place], [address] Read Back By Yes Normal [facility] Comment on above: Performed By: #### L 9000.0800 ####[facility] [address] [place], [address] SITE % Normal [facility] Comment on above: Performed By: #### L 9000.0800 ####[facility] [address] [place], [address] SO2 90 Low 95-99 [facility] Comment on above: Performed By: #### L 9000.0800 ####[facility] [address] [place], [address] TINY TEST Positive Normal [facility] Comment on above: Performed By: #### L 0.0800 ####[facility] [address] [place], [address] Base excess Calc (Bld) [Moles/Vol] 4 mmol/L High -2 to +2 [facility] Comment on above: Performed By: #### L 0.0800 ####[facility] [address] [place], [address] Blood Gas Type ART Normal [facility] Comment on above: Performed By: #### L 0.0800 ####[facility] [address] [place], [address] CO2 [Moles/Vol] 34 mmol/L Normal [facility] Comment on above: Performed By: #### L 0.0800 ####[facility] [address] [place], [address] FI02 3.0 [facility] Comment on above: Performed By: #### L 0.0800 ####[facility] [address] [place], [address] HCO3 (Bld) [Moles/Vol] 31.3 mmol/L High 22-26 [facility] Comment on above: Performed By: #### L 0.0800 ####[facility] [address] [place], [address] Mode Not entered [facility] Comment on above: Performed By: #### L 9000.0800 ####[facility] [address] [place], [address] O2 Delivery Dev Cannula Normal [facility] Comment on above: Performed By: #### L 0.0800 ####[facility] [address] [place], [address] pCO2 72.6 mmHg Invalid Interpretation Code 35-45 [facility] Comment on above: Performed By: #### L 9000.0800 ####[facility] [address] [place], [address] pH (Bld) 7.24 [pH] Low 7.35-7.45 [facility] Comment on above: Performed By: #### L 9000.0800 ####[facility] [address] [place], [address] PO2 86 mmHG Normal 75-100 [facility] Comment on above: Performed By: #### L 9000.0800 ####[facility] [address] [place], [address] Read Back By Yes [facility] Comment on above: Performed By: #### L 9000.0800 ####[facility] [address] [place], [address] Results To pradeep [facility] Comment on above: Performed By: #### L 9000.0800 ####[facility] [address] [place], [address] SITE L Radial Normal [facility] Comment on above: Performed By: #### L 9000.0800 ####[facility] [address] [place], [address] SO2 94 Low 95-99 [facility] Comment on above: Performed By: #### L 9000.0800 ####[facility] [address] [place], [address] Time Given 10:46:25 Normal [facility] Comment on above: Performed By: #### L 9000.0800 ####[facility] [address] [place], [address] CBC W/Diff, Automatedon 03-0 4-2024 Absolute Lymph 2.60 X10 3/uL Normal 0.83-4.51 [facility] Comment on above: Performed By: #### L 100.0100, L500.2500 ####[facility] [address] [place], [address] Absolute Neut 7.4 X10 3/uL Normal 2.0-7.7 [facility] Comment on above: Performed By: #### L 100.0100, L500.2500 ####[facility] [address] [place], [address] Basophils/100 WBC (Bld) 0.6 % Normal 0-1 [facility] Comment on above: Performed By: #### L 100.0100, L500.2500 ####[facility] [address] [place], [address] Eosinophils/100 WBC (Bld) 6.4 % High 0-5 [facility] Comment on above: Performed By: #### L 100.0100, L500.2500 ####[facility] [address] [place], [address] Erythrocyte distribution width (RBC) [Ratio] 12.5 % Normal 11.6-14.6 [facility] Comment on above: Performed By: #### L 100.0100, L500.2500 ####[facility] [address] [place], [address] Hematocrit (Bld) [Volume fraction] 29.7 % Low 37-47 [facility] Comment on above: Performed By: #### L 100.0100, L500.2500 ####[facility] [address] [place], [address] Hemoglobin (Bld) [Mass/Vol] 9.2 g/dL Low 12.0-15.0 [facility] Comment on above: Performed By: #### L 100.0100, L500.2500 ####[facility] [address] [place], [address] IG% 0.400 Normal 0.0-0.9 [facility] Comment on above: Result Comment: IG% - Immature Granulocytes (promyelocytes, myelocytes andmetamyelocytes) > 1% indicates that a LEFT SHIFT is Present. Performed By: #### L 100.0100, L500.2500 ####[facility] [address] [place], [address] Lymphocytes/100 WBC (Bld) 21.5 % Normal 19-41 [facility] Comment on above: Performed By: #### L 100.0100, L500.2500 ####[facility] [address] [place], [address] MCH (RBC) [Entitic mass] 30.3 pg Normal 27.0-32.0 [facility] Comment on above: Performed By: #### L 100.0100, L500.2500 ####[facility] [address] [place], [address] MCHC (RBC) [Mass/Vol] 31.0 g/dL Low 32-36 [facility] Comment on above: Performed By: #### L 100.0100, L500.2500 ####[facility] [address] [place], [address] MCV (RBC) [Entitic vol] 97.7 fL Normal 81-99 [facility] Comment on above: Performed By: #### L 100.0100, L500.2500 ####[facility] [address] [place], [address] Monocytes/100 WBC (Bld) 10.2 % High 0-10 [facility] Comment on above: Performed By: #### L 100.0100, L500.2500 ####[facility] [address] [place], [address] Neutrophils/100 WBC (Bld) 60.9 % Normal 47-70 [facility] Comment on above: Performed By: #### L 100.0100, L500.2500 ####[facility] [address] [place], [address] Nucleated RBC (Bld) [#/Vol] 0 10*3/uL Normal 0-5 [facility] Comment on above: Performed By: #### L 100.0100, L500.2500 ####[facility] [address] [place], [address] Platelet mean volume (Bld) [Entitic vol] 9.5 fL Normal 6.2-12.0 [facility] Comment on above: Performed By: #### L 100.0100, L500.2500 ####[facility] [address] [place], [address] Platelets (Bld) [#/Vol] 227 10*3/uL Normal 150-450 [facility] Comment on above: Performed By: #### L 100.0100, L500.2500 ####[facility] [address] [place], [address] RBC (Bld) [#/Vol] 3.04 10*6/uL Low 4.2-5.4 [facility] Comment on above: Performed By: #### L 100.0100, L500.2500 ####[facility] [address] [place], [address] RDW SD 44.8 fl High 35.1-43.9 [facility] Comment on above: Performed By: #### L 100.0100, L500.2500 ####[facility] [address] [place], [address] WBC (Bld) [#/Vol] 12.1 10*3/uL High 4.4-11.0 [facility] Comment on above: Performed By: #### L 100.0100, L500.2500 ####[facility] [address] [place], [address] Consultation - Nephrologyon 01-04-2025 Consultation - Nephrology Normal [facility] Influenza virus A and B and SARS-CoV-2 (COVID-19) and Respiratory syncytial virus RNAOrdered By: He Cat on 01-04-2025 SARS-CoV-2 (COVID-19) RNA MARISA+probe Ql (Unsp spec) [facility] M100.678on 01-04-2025 M100.678 Pending SARS-CoV-2 (COVID 19) Negative INFLUENZA A Negative INFLUENZA B Negative RSV PCR Negative Normal [facility] Comment on above: Performed By: #### M 100.678 ####[facility] [address] [place], [address] M8200.1000on 01-04-2025 M8200.1000 Normal Reference Ran ge = Negative GeneXpert Instrument, PCR method MRSA PCR MRSA NEGATIVE Normal [facility] Comment on above: Performed By: #### M 8200.1000 ####[facility] [address] [place], [address] Nasal methicillin resistant Staphylococcus aureus (MRSA) DNA detection by PCROrdered By: He Cat on 01-04-2025 MRSA DNA MARISA+probe Ql (Nose) [facility] No Panel InformationOrdered By: He Cat on 01-04-2025 Yes [facility] 10:46:25 [facility] 12 Lead EKGon 01-03-2025 12 Lead EKG Normal [facility] Basic Metabolic Profile (BMP )on 01-03-2025 BUN/CRE 9.0 RATIO Low 10-20 [facility] Comment on above: Performed By: #### L 100.0100, L500.2500 ####[facility] [address] [place], [address] Calcium [Mass/Vol] 9.2 mg/dL Normal 7.6-11.0 [facility] Comment on above: Performed By: #### L 100.0100, L500.2500 ####[facility] [address] [place], [address] Chloride [Moles/Vol] 95 mmol/L Low 98-108 [facility] Comment on above: Performed By: #### L 100.0100, L500.2500 ####[facility] [address] [place], [address] CO2 [Moles/Vol] 32.3 mmol/L High 21.0-32.0 [facility] Comment on above: Performed By: #### L 100.0100, L500.2500 ####[facility] [address] [place], [address] Creatinine [Mass/Vol] 4.48 mg/dL High 0.70-1.20 [facility] Comment on above: Performed By: #### L 100.0100, L500.2500 ####[facility] [address] [place], [address] ECRCL 11.50 ml/min Low 50-250 [facility] Comment on above: Performed By: #### L 100.0100, L500.2500 ####[facility] [address] [place], [address] GAP 5 Normal 5-15 [facility] Comment on above: Performed By: #### L 100.0100, L500.2500 ####[facility] [address] [place], [address] GFR/1.73 sq M.predicted among non-blacks MDRD (S/P/Bld) [Vol rate/Area] 10 mL/min/{1.73_m2} Low >60 [facility] Comment on above: Result Comment: mL/m in/1.73m2 CKD-EPI Creatinine Equation (2020) Performed By: #### L 100.0100, L500.2500 ####[facility] [address] [place], [address] Glucose [Mass/Vol] 158 mg/dL High 70-99 [facility] Comment on above: Performed By: #### L 100.0100, L500.2500 ####[facility] [address] [place], [address] Potassium [Moles/Vol] 5.8 mmol/L High 3.3-5.1 [facility] Comment on above: Result Comment: Hemo lysis present, Results??could be affected.?? Performed By: #### L 100.0100, L500.2500 ####[facility] [address] [place], [address] Sodium [Moles/Vol] 133 mmol/L Normal 133-145 [facility] Comment on above: Performed By: #### L 100.0100, L500.2500 ####[facility] [address] [place], [address] Urea nitrogen [Mass/Vol] 40 mg/dL High 4-19 [facility] Comment on above: Performed By: #### L 100.0100, L500.2500 ####[facility] [address] [place], [address] CBC W/Diff, Automatedon 03-0 -2024 Absolute Lymph 1.39 X10 3/uL Normal 0.83-4.51 [facility] Comment on above: Performed By: #### L 100.0100, L500.2500 ####[facility] [address] [place], [address] Absolute Neut 6.3 X10 3/uL Normal 2.0-7.7 [facility] Comment on above: Performed By: #### L 100.0100, L500.2500 ####[facility] [address] [place], [address] Basophils/100 WBC (Bld) 0.6 % Normal 0-1 [facility] Comment on above: Performed By: #### L 100.0100, L500.2500 ####[facility] [address] [place], [address] Eosinophils/100 WBC (Bld) 7.0 % High 0-5 [facility] Comment on above: Performed By: #### L 100.0100, L500.2500 ####[facility] [address] [place], [address] Erythrocyte distribution width (RBC) [Ratio] 12.4 % Normal 11.6-14.6 [facility] Comment on above: Performed By: #### L 100.0100, L500.2500 ####[facility] [address] [place], [address] Hematocrit (Bld) [Volume fraction] 31.8 % Low 37-47 [facility] Comment on above: Performed By: #### L 100.0100, L500.2500 ####[facility] [address] [place], [address] Hemoglobin (Bld) [Mass/Vol] 10.1 g/dL Low 12.0-15.0 [facility] Comment on above: Performed By: #### L 100.0100, L500.2500 ####[facility] [address] [place], [address] IG% 0.400 Normal 0.0-0.9 [facility] Comment on above: Result Comment: IG% - Immature Granulocytes (promyelocytes, myelocytes andmetamyelocytes) > 1% indicates that a LEFT SHIFT is Present. Performed By: #### L 100.0100, L500.2500 ####[facility] [address] [place], [address] Lymphocytes/100 WBC (Bld) 15.0 % Low 19-41 [facility] Comment on above: Performed By: #### L 100.0100, L500.2500 ####[facility] [address] [place], [address] MCH (RBC) [Entitic mass] 30.4 pg Normal 27.0-32.0 [facility] Comment on above: Performed By: #### L 100.0100, L500.2500 ####[facility] [address] [place], [address] MCHC (RBC) [Mass/Vol] 31.8 g/dL Low 32-36 [facility] Comment on above: Performed By: #### L 100.0100, L500.2500 ####[facility] [address] [place], [address] MCV (RBC) [Entitic vol] 95.8 fL Normal 81-99 [facility] Comment on above: Performed By: #### L 100.0100, L500.2500 ####[facility] [address] [place], [address] Monocytes/100 WBC (Bld) 8.8 % Normal 0-10 [facility] Comment on above: Performed By: #### L 100.0100, L500.2500 ####[facility] [address] [place], [address] Neutrophils/100 WBC (Bld) 68.2 % Normal 47-70 [facility] Comment on above: Performed By: #### L 100.0100, L500.2500 ####[facility] [address] [place], [address] Nucleated RBC (Bld) [#/Vol] 0 10*3/uL Normal 0-5 [facility] Comment on above: Performed By: #### L 100.0100, L500.2500 ####[facility] [address] [place], [address] Platelet mean volume (Bld) [Entitic vol] 9.5 fL Normal 6.2-12.0 [facility] Comment on above: Performed By: #### L 100.0100, L500.2500 ####[facility] [address] [place], [address] Platelets (Bld) [#/Vol] 228 10*3/uL Normal 150-450 [facility] Comment on above: Performed By: #### L 100.0100, L500.2500 ####[facility] [address] [place], [address] RBC (Bld) [#/Vol] 3.32 10*6/uL Low 4.2-5.4 [facility] Comment on above: Performed By: #### L 100.0100, L500.2500 ####[facility] [address] [place], [address] RDW SD 43.1 fl Normal 35.1-43.9 [facility] Comment on above: Performed By: #### L 100.0100, L500.2500 ####[facility] [address] [place], [address] WBC (Bld) [#/Vol] 9.3 10*3/uL Normal 4.4-11.0 [facility] Comment on above: Performed By: #### L 100.0100, L500.2500 ####[facility] [address] [place], [address] Chest PA and Lateralon 01-03 Chest PA and Lateral Normal [facility] Emergency Department Summary on 01-03-2025 Emergency Department [facility] CNPN Telephone (TXCTGL) SANDY DENG ([id number]) 1960 F Date Time Provider Department 12/30/24 KIDNEY TXP COORDINATORS TXCTGL During your visit today, we recorded the following information about you: JacobMontana 12/30/2024 11:06 AM Signed Called and spoke with the patient in regards to kidney transplant referral, she states she started the process with [facility], and would like to go [...] Reason for Visit: Referral - Kidney Txp [[id number]] Prescriptions as of 12/30/2024 - promethazine (PHENERGAN) [...] Encounter Status:Closed by MONTANA JAMES on 12/30/24 [facility] 12-29-2024 CNPN Telephone (TXCTGL) SANDY DENG ([id number]) 1960 F Date Time Provider Department 12/29/24 KIDNEY TXP COORDINATORS TXCTGL During your visit today, we recorded the following information about you: Otilia Portillo Tech 12/29/2024 10:51 AM Signed I spoke with Lita at [facility] who confirmed the patients demographic information and confirmed that the phone number that we have on file for the patient is incorrect. The correct phone number is [phone]. Allergies As of Date: 12/29/2024 Noted Allergy Reaction environmental [Other] 03/23/2009 Date Reviewed: 04/02/2012 Reviewed by: Dominga Garza (Rn), RN - Fully Assessed Reason for Visit: Referral - Kidney Txp [[id number]] Prescriptions as of 12/29/2024 - promethazine (PHENERGAN) [...] Status:Closed by OTILIA PORTILLO on 12/29/24 Normal [facility] Bedside Glucoseon 12-28-2024 FINGERSTICK GLU 207 mg/dL High -106 [facility] Comment on above: Result Comment: SHELLY GEMENT OF PATIENT CARE PER NURSING PROTOCOL Performed By: #### L 501.080 ####[facility] [address] [facility] [phone]) FINGERSTICK GLU 166 mg/dL High -106 [facility] Comment on above: Result Comment: SHELLY GEMENT OF PATIENT CARE PER NURSING PROTOCOL Performed By: #### L 501.080 ####[facility] [address] [facility] [phone] FINGERSTICK GLU 135 mg/dL High -106 [facility] Comment on above: Result Comment: SHELLY GEMENT OF PATIENT CARE PER NURSING PROTOCOL Performed By: #### L 501.080 ####[facility] [address] [facility] [phone] Discharge Instructionon 12-05 Discharge Instruction Normal [facility] Glucose measurement at bedsi deOrdered By: Favian Sinclair on 12-28-2024 Glucose [Mass/Vol] 207 mg/dL High 74-106 [facility] Glucose measurement at bedside 207 mg/dL High 74-106 [facility] MR/POSTOP.ANEon 12-28-2024 MR/POSTOP.ANE Normal [facility] MR/HVOMXEBT5dy 12-28-2024 MR/POSTOPAN2 Normal [facility] Operative Reporton Operative Report Normal [facility] Basic Metabolic Profile (BMP )on 12-25-2024 BUN/CRE 6.9 RATIO Low 10-20 [facility] Comment on above: Performed By: #### L 500.2500, L100.0500 ####[facility] [address] [place], [address] CA,Total 9.0 mg/dL Normal 8.5-10.1 [facility] Comment on above: Performed By: #### L 500.2500, L100.0500 ####[facility] [address] [place], [address] Chloride [Moles/Vol] 96 mmol/L Low 98-107 [facility] Comment on above: Performed By: #### L 500.2500, L100.0500 ####[facility] [address] [place], [address] CO2 [Moles/Vol] 35.0 mmol/L High 21.0-32.0 [facility] Comment on above: Performed By: #### L 500.2500, L100.0500 ####[facility] [address] [place], [address] Creatinine [Mass/Vol] 3.19 mg/dL High 0.55-1.02 [facility] Comment on above: Result Comment: The validity of the calculated GFR GFRAA in patients over70 years has not been determined. Clinical correlation isessential. Performed By: #### L 500.2500, L100.0500 ####[facility] [address] [place], [address] EST GFR - AA 19 mL/min Low >60 [facility] Comment on above: Result Comment: Afri can Yemeni GFR Calc Performed By: #### L 500.2500, L100.0500 ####[facility] [address] [place], [address] GAP 3 Low 5-15 [facility] Comment on above: Performed By: #### L 500.2500, L100.0500 ####[facility] [address] [place], [address] GFR/1.73 sq M.predicted among non-blacks MDRD (S/P/Bld) [Vol rate/Area] 16 mL/min/{1.73_m2} Low >60 [facility] Comment on above: Result Comment: Non- GFR Calc Performed By: #### L 500.2500, L100.0500 ####[facility] [address] [place], [address] Glucose [Mass/Vol] 212 mg/dL High 74-106 [facility] Comment on above: Result Comment: Gluc ose result greater than or equal to 200 mg/dLsuggests DIABETES MELLITUS per A.D.A. criteria. Performed By: #### L 500.2500, L100.0500 ####[facility] [address] [place], [address] Potassium [Moles/Vol] 4.0 mmol/L Normal 3.5-5.1 [facility] Comment on above: Performed By: #### L 500.2500, L100.0500 ####[facility] [address] [place], [address] Sodium [Moles/Vol] 134 mmol/L Low 136-145 [facility] Comment on above: Performed By: #### L 500.2500, L100.0500 ####[facility] [address] [place], [address] Urea nitrogen [Mass/Vol] 22 mg/dL High 7-18 [facility] Comment on above: Performed By: #### L 500.2500, L100.0500 ####[facility] [address] [place], [address] Blood urea nitrogen (BUN)/cr eatinine ratioOrdered By: Favian Sinclair on 12-25-2024 Blood urea nitrogen (BUN)/creatinine ratio 6.9 RATIO Low 10-20 [facility] CBC-Complete Blood Cnt No Di ffon 12-25-2024 Erythrocyte distribution width (RBC) [Ratio] 12.4 % Normal 11.6-14.6 [facility] Comment on above: Performed By: #### L 500.2500, L100.0500 ####[facility] [address] [place], [address] Hematocrit (Bld) [Volume fraction] 33.1 % Low 37-47 [facility] Comment on above: Performed By: #### L 500.2500, L100.0500 ####[facility] [address] [place], [address] Hemoglobin (Bld) [Mass/Vol] 10.6 g/dL Low 12.0-15.0 [facility] Comment on above: Performed By: #### L 500.2500, L100.0500 ####[facility] [address] [place], [address] MCH (RBC) [Entitic mass] 30.1 pg Normal 27.0-32.0 [facility] Comment on above: Performed By: #### L 500.2500, L100.0500 ####[facility] [address] [place], [address] MCHC (RBC) [Mass/Vol] 32.0 g/dL Normal 32-36 [facility] Comment on above: Performed By: #### L 500.2500, L100.0500 ####[facility] [address] [place], [address] MCV (RBC) [Entitic vol] 94.0 fL Normal 81-99 [facility] Comment on above: Performed By: #### L 500.2500, L100.0500 ####[facility] [address] [place], [address] Platelet mean volume (Bld) [Entitic vol] 9.4 fL Normal 6.2-12.0 [facility] Comment on above: Performed By: #### L 500.2500, L100.0500 ####[facility] [address] [place], [address] Platelets (Bld) [#/Vol] 220 10*3/uL Normal 150-450 [facility] Comment on above: Performed By: #### L 500.2500, L100.0500 ####[facility] [address] [place], [address] RBC (Bld) [#/Vol] 3.52 10*6/uL Low 4.2-5.4 [facility] Comment on above: Performed By: #### L 500.2500, L100.0500 ####[facility] [address] [place], [address] RDW SD 42.8 fl Normal 35.1-43.9 [facility] Comment on above: Performed By: #### L 500.2500, L100.0500 ####[facility] [address] [place], [address] WBC (Bld) [#/Vol] 7.7 10*3/uL Normal 4.4-11.0 [facility] Comment on above: Performed By: #### L 500.2500, L100.0500 ####[facility] [address], [address] Calcium [Mass/Vol]Ordered By : Favian Sinclair on 12-25-2024 Serum or plasma calcium measurement (mass/volume) 9.0 mg/dL 8.5-10.1 [facility] Carbon dioxide measurementOr dered By: Favian Sinclair on 12-25-2024 CO2 [Moles/Vol] 35.0 mmol/L High 21.0-32.0 [facility] Carbon dioxide measurement 35.0 mmol/L High 21.0-32.0 [facility] Chloride measurementOrdered By: Favian Sinclair on 12-25-2024 Chloride [Moles/Vol] 96 mmol/L Low 98-107 [facility] Chloride measurement 96 mmol/L Low 98-107 [facility] Creatinine [Mass/Vol]Ordered By: Favian Sinclair on 12-25-2024 Serum or plasma creatinine measurement (mass/volume) 3.19 mg/dL High 0.55-1.02 [facility] Erythrocyte distribution wid th (RBC) [Entitic vol]Ordered By: Favian Sinclair on 12-25-2024 Erythrocyte distribution width standard deviation 42.8 fl 35.1-43.9 [facility] Erythrocyte distribution wid th (RBC) [Ratio]Ordered By: Favian Sinclair on 12-25-2024 Erythrocyte distribution width ratio 12.4 % 11.6-14.6 [facility] Erythrocyte distribution wid th ratioOrdered By: Favian Sinclair 12-25-2024 Erythrocyte distribution width (RBC) [Ratio] 12.4 % 11.6-14.6 [facility] Erythrocyte distribution wid th standard deviationOrdered By: Favian Sinclair 12-25-2024 Erythrocyte distribution width (RBC) [Ratio] 42.8 fl 35.1-43.9 [facility] Estimated glomerular filtrat ion rate (GFR) AmericanOrdered By: Favian Sinclair on 12-25-2024 Estimated glomerular filtration rate (GFR) 19 mL/min Low >60 [facility] Glomerular filtration rate ( GFR) estimationOrdered By: Favian Sinclair on 12-25-2024 GFR/1.73 sq M.predicted among non-blacks MDRD (S/P/Bld) [Vol rate/Area] 16 mL/min/{1.73_m2} Low >60 [facility] Glomerular filtration rate (GFR) estimation 16 mL/min Low >60 [facility] Glucose measurementOrdered B y: Favian Sinclair on 12-25-2024 Glucose [Mass/Vol] 212 mg/dL High 74-106 [facility] Glucose measurement 212 mg/dL High 74-106 [facility] Hematocrit Auto (Bld) [Volum e fraction]Ordered By: Favian Sinclair on 12-25-2024 Hematocrit (Bld) [Volume fraction] 33.1 % Low 37-47 [facility] Automated blood hematocrit (percentage) 33.1 % Low 37-47 [facility] Hemoglobin measurementOrdere d By: Favian Sinclair on 12-25-2024 Hemoglobin (Bld) [Mass/Vol] 10.6 g/dL Low 12.0-15.0 [facility] Hemoglobin measurement 10.6 g/dL Low 12.0-15.0 [facility] MCV (RBC) [Entitic vol]Order ed By: Favian Sinclair on 12-25-2024 MCV (mean corpuscular volume) determination 94.0 fL 81-99 [facility] MCV (mean corpuscular volume ) determinationOrdered By: Favian Sinclair on 12-25-2024 MCV (RBC) [Entitic vol] 94.0 fL 81-99 [facility] Mean corpuscular hemoglobin (MCH) determinationOrdered By: Favian Sinclair on 12-25-2024 MCH (RBC) [Entitic mass] 30.1 pg 27.0-32.0 [facility] Mean corpuscular hemoglobin (MCH) determination 30.1 pg 27.0-32.0 [facility] Mean corpuscular hemoglobin concentration (MCHC) determinationOrdered By: Favian Sinclair on 12-25-2024 Mean corpuscular hemoglobin concentration (MCHC) determination 32.0 g/dL 32-36 [facility] Mean platelet volume determi nationOrdered By: Favian Sinclair on 12-25-2024 Mean platelet volume determination 9.4 fl 6.2-12.0 [facility] Platelet countOrdered By: Shreyas Sinclair on 12-25-2024 Platelets (Bld) [#/Vol] 220 10*3/uL 150-450 [facility] Platelet count 220 K/mm3 150-450 [facility] Potassium measurementOrdered By: Favian Sinclair on 12-25-2024 Potassium [Moles/Vol] 4.0 mmol/L 3.5-5.1 [facility] Potassium measurement 4.0 mmol/L 3.5-5.1 [facility] RBC Auto (Bld) [#/Vol]Ordere d By: Favian Sinclair on 12-25-2024 RBC (Bld) [#/Vol] 3.52 10*6/uL Low 4.2-5.4 [facility] Automated blood erythrocyte count 3.52 M/mm3 Low 4.2-5.4 [facility] Serum anion gap measurementO rdered By: Favian Sinclair on 12-25-2024 Serum anion gap measurement 3 Low 5-15 [facility] Serum or plasma calcium lesly urement (mass/volume)Ordered By: Favian Sinclair on 12-25-2024 Calcium [Mass/Vol] 9.0 mg/dL 8.5-10.1 [facility] Serum or plasma creatinine m easurement (mass/volume)Ordered By: Favian Sinclair on 12-25-2024 Creatinine [Mass/Vol] 3.19 mg/dL High 0.55-1.02 [facility] Serum or plasma urea nitroge n measurement (mass/volume)Ordered By: Favian Sinclair on 12-25-2024 Urea nitrogen [Mass/Vol] 22 mg/dL High 7-18 [facility] Sodium levelOrdered By: Favian Sinclair on 12-25-2024 Sodium [Moles/Vol] 134 mmol/L Low 136-145 [facility] Sodium level 134 mmol/L Low 136-145 [facility] Urea nitrogen [Mass/Vol]Orde red By: Favian Sinclair on 12-25-2024 Serum or plasma urea nitrogen measurement (mass/volume) 22 mg/dL High 7-18 [facility] White blood cell (WBC) count Ordered By: Favian Sinclair on 12-25-2024 WBC (Bld) [#/Vol] 7.7 10*3/uL 4.4-11.0 [facility] White blood cell (WBC) count 7.7 K/mm3 4.4-11.0 [facility] Siri 12-24-2024 CNPN Telephone (TXCTGL) SANDY DENG ([id number]) 1960 F Date Time Provider Department 12/24/24 [...] Reason for Visit: Referral - Kidney Txp [[id number]] Prescriptions as of 12/24/2024 - promethazine (PHENERGAN) [...] Status:Closed by MON[place] JAMES on 12/24/24 Normal [facility] MR/PAT.ANEon 12-20-2024 MR/PAT.ANE Normal [facility] Echo Completeon 12-17-2024 Echo Complete Normal [facility] Cardiology Visit Reporton Cardiology Visit Report Normal [facility] MR/PAT.ANEon 12-15-2024 MR/PAT.ANE Normal [facility] MR/PAT.ANEon 12-14-2024 MR/PAT.ANE Normal [facility] MR/BMS.BVSon 12-02-2024 MR/BMS.BVS Normal [facility] 12 Lead EKGon 11-20-2024 12 Lead EKG Normal [facility] 12 Lead EKG Normal [facility] ALP [Catalytic activity/Vol] Ordered By: Alex Kaur on 11-20-2024 Serum or plasma alkaline phosphatase measurement 71 U/L 45-117 [facility] ALT [Catalytic activity/Vol] Ordered By: Alex Kaur on 11-20-2024 Serum or plasma alanine aminotransferase (ALT) measurement 17 U/L 13-56 [facility] Absolute neutrophil countOrd ered By: Alex Kaur on 11-20-2024 Absolute neutrophil count 4.4 X10^3/uL 2.0-7.7 [facility] Albumin [Mass/Vol]Ordered By : Alex Kaur on 11-20-2024 Serum or plasma albumin measurement (mass/volume) 2.9 g/dL Low 3.2-5.0 [facility] Albumin to globulin ratioOrd ered By: Alex Kaur on 11-20-2024 Albumin to globulin ratio 0.9 RATIO 0.9-2.4 [facility] Basophil percentageOrdered B y: Alex Kaur on 11-20-2024 Basophil percentage 0.6 % 0-1 [facility] Bilirubin, totalOrdered By: Alex Kaur on 11-20-2024 Bilirubin, total 0.30 mg/dL 0.20-1.00 [facility] Blood urea nitrogen (BUN)/cr eatinine ratioOrdered By: Alex Kaur on 11-20-2024 Blood urea nitrogen (BUN)/creatinine ratio 8.1 RATIO Low 10-20 [facility] CBC W/Diff, Automatedon 11-03 Absolute Lymph 1.88 X10 3/uL Normal 0.83-4.51 [facility] Comment on above: Performed By: #### L 500.4050, L100.0100 ####[facility] [address] [place], [address] Absolute Neut 4.4 X10 3/uL Normal 2.0-7.7 [facility] Comment on above: Performed By: #### L 500.4050, L100.0100 ####[facility] [address] [place], [address] Basophils/100 WBC (Bld) 0.6 % Normal 0-1 [facility] Comment on above: Performed By: #### L 500.4050, L100.0100 ####[facility] [address] [place], [address] Eosinophils/100 WBC (Bld) 7.6 % High 0-5 [facility] Comment on above: Performed By: #### L 500.4050, L100.0100 ####[facility] [address] [place], [address] Erythrocyte distribution width (RBC) [Ratio] 12.6 % Normal 11.6-14.6 [facility] Comment on above: Performed By: #### L 500.4050, L100.0100 ####[facility] [address] [place], [address] Hematocrit (Bld) [Volume fraction] 35.8 % Low 37-47 [facility] Comment on above: Performed By: #### L 500.4050, L100.0100 ####[facility] [address] [place], [address] Hemoglobin (Bld) [Mass/Vol] 11.5 g/dL Low 12.0-15.0 [facility] Comment on above: Performed By: #### L 500.4050, L100.0100 ####[facility] [address] [place], [address] IG% 0.500 Normal 0.0-0.9 [facility] Comment on above: Result Comment: IG% - Immature Granulocytes (promyelocytes, myelocytes andmetamyelocytes) > 1% indicates that a LEFT SHIFT is Present. Performed By: #### L 500.4050, L100.0100 ####[facility] [address] [place], [address] Lymphocytes/100 WBC (Bld) 24.4 % Normal 19-41 [facility] Comment on above: Performed By: #### L 500.4050, L100.0100 ####[facility] [address] [place], [address] MCH (RBC) [Entitic mass] 30.4 pg Normal 27.0-32.0 [facility] Comment on above: Performed By: #### L 500.4050, L100.0100 ####[facility] [address] [place], [address] MCHC (RBC) [Mass/Vol] 32.1 g/dL Normal 32-36 [facility] Comment on above: Performed By: #### L 500.4050, L100.0100 ####[facility] [address] [place], [address] MCV (RBC) [Entitic vol] 94.7 fL Normal 81-99 [facility] Comment on above: Performed By: #### L 500.4050, L100.0100 ####[facility] [address] [place], [address] Monocytes/100 WBC (Bld) 9.7 % Normal 0-10 [facility] Comment on above: Performed By: #### L 500.4050, L100.0100 ####[facility] [address] [place], [address] Neutrophils/100 WBC (Bld) 57.2 % Normal 47-70 [facility] Comment on above: Performed By: #### L 500.4050, L100.0100 ####[facility] [address] [place], [address] Nucleated RBC (Bld) [#/Vol] 0 10*3/uL Normal 0-5 [facility] Comment on above: Performed By: #### L 500.4050, L100.0100 ####[facility] [address] [place], [address] Platelet mean volume (Bld) [Entitic vol] 9.1 fL Normal 6.2-12.0 [facility] Comment on above: Performed By: #### L 500.4050, L100.0100 ####[facility] [address] [place], [address] Platelets (Bld) [#/Vol] 193 10*3/uL Normal 150-450 [facility] Comment on above: Performed By: #### L 500.4050, L100.0100 ####[facility] [address] [place], [address] RBC (Bld) [#/Vol] 3.78 10*6/uL Low 4.2-5.4 [facility] Comment on above: Performed By: #### L 500.4050, L100.0100 ####[facility] [address] [place], [address] RDW SD 42.2 fl Normal 35.1-43.9 [facility] Comment on above: Performed By: #### L 500.4050, L100.0100 ####[facility] [address] [place], [address] WBC (Bld) [#/Vol] 7.7 10*3/uL Normal 4.4-11.0 [facility] Comment on above: Performed By: #### L 500.4050, L100.0100 ####[facility] [address] [place], [address] Calcium [Mass/Vol]Ordered By : Alex Kaur on 11-20-2024 Serum or plasma calcium measurement (mass/volume) 9.3 mg/dL 8.5-10.1 [facility] Carbon dioxide measurementOr dered By: Alex Kaur on 11-20-2024 Carbon dioxide measurement 33.0 mmol/L High 21.0-32.0 [facility] Chest 1 View (Portable)on Chest 1 View (Portable) Normal [facility] Chloride measurementOrdered By: Alex Kaur on 11-20-2024 Chloride measurement 102 mmol/L 98-107 [facility] Comprehensive Metabolic Prof ilon 11-20-2024 Albumin [Mass/Vol] 2.9 g/dL Low 3.2-5.0 [facility] Comment on above: Performed By: #### L 500.4050, L100.0100 ####[facility] [address] [place], [address] Albumin/Globulin [Mass ratio] 0.9 {ratio} Normal 0.9-2.4 [facility] Comment on above: Performed By: #### L 500.4050, L100.0100 ####[facility] [address] [place], [address] ALK P 71 U/L Normal 45-117 [facility] Comment on above: Performed By: #### L 500.4050, L100.0100 ####[facility] [address] [place], [address] ALT [Catalytic activity/Vol] 17 U/L Normal 13-56 [facility] Comment on above: Performed By: #### L 500.4050, L100.0100 ####[facility] [address] [place], [address] AST [Catalytic activity/Vol] 14 U/L Low 15-37 [facility] Comment on above: Performed By: #### L 500.4050, L100.0100 ####[facility] [address] [place], [address] Bilirubin [Mass/Vol] 0.30 mg/dL Normal 0.20-1.00 [facility] Comment on above: Result Comment: For patients on eltrombopag therapy, use of Dimension [place] TBIL is not recommended. Performed By: #### L 500.4050, L100.0100 ####[facility] [address] [place], [address] BUN/CRE 8.1 RATIO Low 10-20 [facility] Comment on above: Performed By: #### L 500.4050, L100.0100 ####[facility] [address] [place], [address] CA,Total 9.3 mg/dL Normal 8.5-10.1 [facility] Comment on above: Performed By: #### L 500.4050, L100.0100 ####[facility] [address] [place], [address] Chloride [Moles/Vol] 102 mmol/L Normal 98-107 [facility] Comment on above: Performed By: #### L 500.4050, L100.0100 ####[facility] [address] [place], [address] CO2 [Moles/Vol] 33.0 mmol/L High 21.0-32.0 [facility] Comment on above: Performed By: #### L 500.4050, L100.0100 ####[facility] [address] [place], [address] Creatinine [Mass/Vol] 2.85 mg/dL High 0.55-1.02 [facility] Comment on above: Result Comment: The validity of the calculated GFR GFRAA in patients over70 years has not been determined. Clinical correlation isessential. Performed By: #### L 500.4050, L100.0100 ####[facility] [address] [place], [address] ECRCL 15.85 ml/min Normal [facility] Comment on above: Performed By: #### L 500.4050, L100.0100 ####[facility] [address] [place], [address] EST GFR - AA 21 mL/min Low >60 [facility] Comment on above: Result Comment: Afri can Yemeni GFR Calc Performed By: #### L 500.4050, L100.0100 ####[facility] [address] [place], [address] GAP 2 Low 5-15 [facility] Comment on above: Performed By: #### L 500.4050, L100.0100 ####[facility] [address] [place], [address] GFR/1.73 sq M.predicted among non-blacks MDRD (S/P/Bld) [Vol rate/Area] 18 mL/min/{1.73_m2} Low >60 [facility] Comment on above: Result Comment: Non- GFR Calc Performed By: #### L 500.4050, L100.0100 ####[facility] [address] [place], [address] Globulin (S) [Mass/Vol] 3.4 g/dL Normal 2.2-4.2 [facility] Comment on above: Performed By: #### L 500.4050, L100.0100 ####[facility] [address] [place], [address] Glucose [Mass/Vol] 105 mg/dL Normal 74-106 [facility] Comment on above: Result Comment: Fast ing Glucose result from 100 to 125 mg/dLsuggests IMPAIRED HOMEOSTASIS per A.D.A. criteria. Performed By: #### L 500.4050, L100.0100 ####[facility] [address] [place], [address] Potassium [Moles/Vol] 4.4 mmol/L Normal 3.5-5.1 [facility] Comment on above: Performed By: #### L 500.4050, L100.0100 ####[facility] [address] [place], [address] Sodium [Moles/Vol] 137 mmol/L Normal 136-145 [facility] Comment on above: Performed By: #### L 500.4050, L100.0100 ####[facility] [address] [place], [address] T PROT 6.3 g/dL Low 6.4-8.2 [facility] Comment on above: Performed By: #### L 500.4050, L100.0100 ####[facility] [address] [place], [address] Urea nitrogen [Mass/Vol] 23 mg/dL High 7-18 [facility] Comment on above: Performed By: #### L 500.4050, L100.0100 ####[facility] [address] [place], [address] Creatinine [Mass/Vol]Ordered By: Alex Kaur on 11-20-2024 Serum or plasma creatinine measurement (mass/volume) 2.85 mg/dL High 0.55-1.02 [facility] Emergency Department Summary on 11-20-2024 Emergency Department Summary Normal [facility] Eosinophil percentageOrdered By: Alex Kaur on 11-20-2024 Eosinophil percentage 7.6 % High 0-5 [facility] Erythrocyte distribution wid th (RBC) [Entitic vol]Ordered By: Alex Kaur on 11-20-2024 Erythrocyte distribution width standard deviation 42.2 fl 35.1-43.9 [facility] Erythrocyte distribution wid th (RBC) [Ratio]Ordered By: Alex Kaur on 11-20-2024 Erythrocyte distribution width ratio 12.6 % 11.6-14.6 [facility] Estimated glomerular filtrat ion rate (GFR) AmericanOrdered By: Alex Kaur on 11-20-2024 Estimated glomerular filtration rate (GFR) 21 mL/min Low >60 [facility] Estimation of creatinine abdulkadir aranceOrdered By: Alex Kaur on 11-20-2024 Estimation of creatinine clearance 15.85 ml/min [facility] Glomerular filtration rate ( GFR) estimationOrdered By: Alex Kaur on 11-20-2024 Glomerular filtration rate (GFR) estimation 18 mL/min Low >60 [facility] Glucose measurementOrdered B y: Alex Kaur on 11-20-2024 Glucose measurement 105 mg/dL 74-106 [facility] Hematocrit Auto (Bld) [Volum e fraction]Ordered By: Alex Kaur on 11-20-2024 Automated blood hematocrit (percentage) 35.8 % Low 37-47 [facility] Hemoglobin measurementOrdere d By: Alex Kaur on 11-20-2024 Hemoglobin measurement 11.5 g/dL Low 12.0-15.0 [facility] Immature granulocytes/100 WB C Auto (Bld)Ordered By: Alex Kaur on 11-20-2024 Automated immature granulocyte percentage 0.500 % 0.0-0.9 [facility] L501.4020on 11-20-2024 TROPONIN-I HS 108 pg/mL High 3.0-54.0 [facility] Comment on above: Order Comment: 'TROP ' Serial specimen #1, #2 or #3: 2 Result Comment: Plea se Note: New Test Units and Gender Specific Reference Ranges. For more information see Policy Stat Procedure Cantwell High Sensitivity Troponin (TNIH) and attachments. Performed By: #### L 501.4020 ####[facility] [address] [place], [place], [address] TROPONIN-I HS 113 pg/mL High 3.0-54.0 [facility] Comment on above: Order Comment: 'TROP ' Serial specimen #1, #2 or #3: 1 Result Comment: Plea se Note: New Test Units and Gender Specific Reference Ranges. For more information see Policy Stat Procedure [place] High Sensitivity Troponin (TNIH) and attachments. Performed By: #### L 501.4020 ####[facility] [address] [facility] [place], [place], [address] Lymphocytes Auto (Unsp spec) [#/Vol]Ordered By: Alex Kaur on 11-20-2024 Absolute lymphocyte count 1.88 X10^3/uL 0.83-4.51 [facility] Lymphocytes/100 WBC Auto (Un sp spec)Ordered By: Alex Kaur on 11-20-2024 Automated lymphocyte count as percentage of total leukocytes 24.4 % 19-41 [facility] MCV (RBC) [Entitic vol]Order ed By: Alex Kaur on 11-20-2024 MCV (mean corpuscular volume) determination 94.7 fL 81-99 [facility] Mean corpuscular hemoglobin (MCH) determinationOrdered By: Alex Kaur on 11-20-2024 Mean corpuscular hemoglobin (MCH) determination 30.4 pg 27.0-32.0 [facility] Mean corpuscular hemoglobin concentration (MCHC) determinationOrdered By: Alex Kaur on 11-20-2024 Mean corpuscular hemoglobin concentration (MCHC) determination 32.1 g/dL 32-36 [facility] Mean platelet volume determi nationOrdered By: Alex Kaur on 11-20-2024 Mean platelet volume determination 9.1 fl 6.2-12.0 [facility] Monocyte percentageOrdered B y: Alex Kaur on 11-20-2024 Monocyte percentage 9.7 % 0-10 [facility] Neutrophil percentageOrdered By: Alex Kaur on 11-20-2024 Neutrophil percentage 57.2 % 47-70 [facility] No Panel InformationOrdered By: Alex Kaur on 11-20-2024 14 U/L Low 15-37 [facility] Nucleated red blood cell per centageOrdered By: Alex Kaur on 11-20-2024 Nucleated red blood cell percentage 0 % 0-5 [facility] Platelet countOrdered By: Benton Kaur on 11-20-2024 Platelet count 193 K/mm3 150-450 [facility] Potassium measurementOrdered By: Alex Kaur on 11-20-2024 Potassium measurement 4.4 mmol/L 3.5-5.1 [facility] RBC Auto (Bld) [#/Vol]Ordere d By: Alex Kaur on 11-20-2024 Automated blood erythrocyte count 3.78 M/mm3 Low 4.2-5.4 [facility] Serum anion gap measurementO rdered By: Alex Kaur on 11-20-2024 Serum anion gap measurement 2 Low 5-15 [facility] Serum globulin measurementOr dered By: Alex Kaur on 11-20-2024 Serum globulin measurement 3.4 g/dL 2.2-4.2 [facility] Sodium levelOrdered By: Alex Kaur on 11-20-2024 Sodium level 137 mmol/L 136-145 [facility] Total proteinOrdered By: Brooke Kaur on 11-20-2024 Total protein 6.3 g/dL Low 6.4-8.2 [facility] Troponin IOrdered By: Alex vidales on 11-20-2024 Troponin I 108 pg/mL High 3.0-54.0 [facility] Urea nitrogen [Mass/Vol]Orde red By: Alex Kaur on 11-20-2024 Serum or plasma urea nitrogen measurement (mass/volume) 23 mg/dL High 7-18 [facility] White blood cell (WBC) count Ordered By: Alex Kaur on 11-20-2024 White blood cell (WBC) count 7.7 K/mm3 4.4-11.0 [facility] Basic Metabolic Profile (BMP )on 11-04-2024 BUN Normal 7-18 [facility] Comment on above: Order Comment: 1Y Result Comment: PT. DISCHARGED Performed By: #### L 500.2500, L100.0100 ####[facility] [address] [place], [address] BUN/CRE Normal 10-20 [facility] Comment on above: Order Comment: 1Y Result Comment: PT. DISCHARGED Performed By: #### L 500.2500, L100.0100 ####[facility] [address] [place], [address] CA,Total Normal 8.5-10.1 [facility] Comment on above: Order Comment: 1Y Result Comment: PT. DISCHARGED Performed By: #### L 500.2500, L100.0100 ####[facility] [address] [place], [address] CL Normal 98-107 [facility] Comment on above: Order Comment: 1Y Result Comment: PT. DISCHARGED Performed By: #### L 500.2500, L100.0100 ####[facility] [address] [place], [address] CO2 Normal 21.0-32.0 [facility] Comment on above: Order Comment: 1Y Result Comment: PT. DISCHARGED Performed By: #### L 500.2500, L100.0100 ####[facility] [address] [place], [address] CREAT,SERUM Normal 0.55-1.02 [facility] Comment on above: Order Comment: 1Y Result Comment: PT. DISCHARGED Performed By: #### L 500.2500, L100.0100 ####[facility] [address] [place], [address] EST GFR Normal >60 [facility] Comment on above: Order Comment: 1Y Result Comment: PT. DISCHARGED Performed By: #### L 500.2500, L100.0100 ####[facility] [address] [place], [address] EST GFR - AA Normal >60 [facility] Comment on above: Order Comment: 1Y Result Comment: PT. DISCHARGED Performed By: #### L 500.2500, L100.0100 ####[facility] [address] [place], [address] GAP Normal 5-15 [facility] Comment on above: Order Comment: 1Y Result Comment: PT. DISCHARGED Performed By: #### L 500.2500, L100.0100 ####[facility] [address] [place], [address] GLU Normal 74-106 [facility] Comment on above: Order Comment: 1Y Result Comment: PT. DISCHARGED Performed By: #### L 500.2500, L100.0100 ####[facility] [address] [place], [address] Potassium Normal 3.5-5.1 [facility] Comment on above: Order Comment: 1Y Result Comment: PT. DISCHARGED Performed By: #### L 500.2500, L100.0100 ####[facility] [address] [place], [address] Basic Metabolic Profile (BMP) Normal 136-145 [facility] Comment on above: Order Comment: 1Y Result Comment: PT. DISCHARGED Performed By: #### L 500.2500, L100.0100 ####[facility] [address] [place], [address] CBC W/Diff, Automatedon 01-0 Absolute Neut Normal 2.0-7.7 [facility] Comment on above: Result Comment: PT D ISCHARGED Performed By: #### L 500.2500, L100.0100 ####[facility] [address] [place], [address] HCT Normal 37-47 [facility] Comment on above: Result Comment: PT D ISCHARGED Performed By: #### L 500.2500, L100.0100 ####[facility] [address] [place], [address] HGB Normal 12.0-15.0 [facility] Comment on above: Result Comment: PT D ISCHARGED Performed By: #### L 500.2500, L100.0100 ####[facility] [address] [place], [address] MCH Normal 27.0-32.0 [facility] Comment on above: Result Comment: PT D ISCHARGED Performed By: #### L 500.2500, L100.0100 ####[facility] [address] [place], [address] MCHC Normal 32-36 [facility] Comment on above: Result Comment: PT D ISCHARGED Performed By: #### L 500.2500, L100.0100 ####[facility] [address] [place], [address] MCV Normal 81-99 [facility] Comment on above: Result Comment: PT D ISCHARGED Performed By: #### L 500.2500, L100.0100 ####[facility] [address] [place], [address] NEUT% Normal 47-70 [facility] Comment on above: Result Comment: PT D ISCHARGED Performed By: #### L 500.2500, L100.0100 ####[facility] [address] [place], [address] PLT Normal 150-450 [facility] Comment on above: Result Comment: PT D ISCHARGED Performed By: #### L 500.2500, L100.0100 ####[facility] [address] [place], [address] RBC Normal 4.2-5.4 [facility] Comment on above: Result Comment: PT D ISCHARGED Performed By: #### L 500.2500, L100.0100 ####[facility] [address] [place], [address] RDW CV Normal 11.6-14.6 [facility] Comment on above: Result Comment: PT D ISCHARGED Performed By: #### L 500.2500, L100.0100 ####[facility] [address] [place], [address] RDW SD Normal 35.1-43.9 [facility] Comment on above: Result Comment: PT D ISCHARGED Performed By: #### L 500.2500, L100.0100 ####[facility] [address] [place], [address] WBC Normal 4.4-11.0 [facility] Comment on above: Result Comment: PT D ISCHARGED Performed By: #### L 500.2500, L100.0100 ####[facility] [address] [place], [address] Pulmonary Visit Reporton Pulmonary Visit Report Normal [facility] Dialysis Vein Map PRE-OP ADEBAYO ATon 11-02-2024 Dialysis Vein Map PRE-OP BILAT Normal [facility] Chest without Contraston Chest without Contrast Normal [facility] Endocrinology Visit Reporton 10-07-2024 Endocrinology Visit Report Normal [facility] Progress Noteon 08-31-2024 Progress Note Patient seen by me a t [facility]. Complete documentation including history with assessment and plan were documented in [facility] EMR. This encounter is for billing only. Normal [facility] Progress Noteon 08-27-2024 Progress Note Patient seen by me a t [facility]. Complete documentation including history with assessment and plan were documented in [facility] EMR. This encounter is for billing only. Normal [facility] Progress Noteon 08-25-2024 Progress Note Patient seen by me a t [facility]. Complete documentation including history with assessment and plan were documented in [facility] EMR. This encounter is for billing only. Normal [facility] 30on 08-24-2024 30 Normal [facility] [id number] 08-24-2024 [id number] [facility] [id number] [facility] [id number] Discharge med list transmitted to REHAB- [facility] for return via [facility] per TCC request. [facility] [id number] Auth obtained for SR H. SW messaged to set up transport, CD MANUFACTURING SUPERVISOR messaged to send orders and MAR. [facility] BASIC METABOLIC PANELon 08-04 Anion gap [Moles/Vol] 6 mmol/L Normal 3-[address] [facility] Comment on above: Performed By: #### L AB113, LAB15, [id number] ####Textile Engineer: MARY SOTELO ([id number])[facility] ([facility])[address] [place] [address] Calcium [Mass/Vol] 7.3 mg/dL Low 8.4-10.4 [facility] Comment on above: Performed By: #### L AB113, LAB15, [id number] ####Textile Engineer: MARY SOTLEO ([id number])[facility] [place] [address] [place] Chloride [Moles/Vol] 100 mmol/L Normal 98-107 [facility] Comment on above: Performed By: #### L AB113, LAB15, [id number] ####Textile Engineer: MARY SOTELO ([phone])[facility] ([facility])[address] [place] [address] [place] CO2 [Moles/Vol] 25 mmol/L Normal 22-30 [facility] Comment on above: Performed By: #### L AB113, LAB15, [id number] ####Textile Engineer: MARY SOTELO ([id number])[facility] ([facility])[address] [place] [address] [place] Creatinine [Mass/Vol] 2.15 mg/dL High 0.52-1.[address] [facility] Comment on above: Performed By: #### L AB113, LAB15, [id number] ####Textile Engineer: MARY SOTELO ([id number])[facility] ([facility])[address] [place] [address] [place] GLOMERULAR FILTRATION RATE ML/MIN/1.73 SQ M.PREDICTED 25.2 mL/min/1.73m*2 Low >60.0 [facility] Comment on above: Result Comment: Calc ulation based on the Chronic Kidney Disease Epidemiology Collaboration (CKD-EPI) equation refit without adjustment for race Performed By: #### Dora AB113, LAB15, [id number] ####Textile Engineer: MARY SOTELO ([id number])[facility] ([facility])[address] [place] [address] Glucose [Mass/Vol] 282 mg/dL High 70-100 [facility] Comment on above: Performed By: #### Dora AB113, LAB15, [id number] ####Textile Engineer: MARY SOTELO ([id number])[facility] ([facility])[address] [place] [address] Potassium [Moles/Vol] 3.9 mmol/L Normal 3.5-5.[address] [facility] Comment on above: Performed By: #### Dora ABGabbie, LAB15, [id number] ####Textile Engineer: MARY SOTELO ([id number])[facility] ([facility])[address] [place] [address] [place] Sodium [Moles/Vol] 130 mmol/L Low 135-145 [facility] Comment on above: Performed By: #### L AB113, LAB15, [id number] ####Textile Engineer: MARY SOTELO ([id number])[facility])[address] [place] [address] [place] Urea nitrogen [Mass/Vol] 20 mg/dL High 7-17 [facility] Comment on above: Performed By: #### L AB113, LAB15, [id number] ####Textile Engineer: MARY SOTELO ([id number])[facility] ([facility] [place] [address] Basic metabolic 1998 panelon 08-24-2024 Anion gap [Moles/Vol] 6 mmol/L 3 - 13 mmol/L [facility] Calcium [Mass/Vol] 7.3 mg/dL Low 8.4 - 10. 4 mg/dL [facility] Chloride [Moles/Vol] 100 mmol/L 98 - 10 7 mmol/L [facility] CO2 [Moles/Vol] 25 mmol/L 22 - 30 mmol/L [facility] Creatinine [Mass/Vol] 2.15 mg/dL High 0.52 - 1.04 mg/dL [facility] GFR/1.73 sq M.predicted (S/P/Bld) [Vol rate/Area] 25.2 mL/min Low - PINF [facility] Glucose [Mass/Vol] 282 mg/dL High 70 - 100 mg/dL [facility] Interpretation and review of laboratory results Abnormal [facility] Potassium [Moles/Vol] 3.9 mmol/L 3.5 - 5.1 mmol/L [facility] Sodium [Moles/Vol] 130 mmol/L Low 135 - 145 mmol/L [facility] Urea nitrogen [Mass/Vol] 20 mg/dL High 7 - 17 mg/dL [facility] CBC W Auto Differential pane l (Bld)on 08-24-2024 Basophils (Bld) [#/Vol] 0 10*3/uL 0.0 - 0.2 10*3/uL [facility] Basophils/100 WBC (Bld) 0.5 % 0.0 - 2.0 % [facility] Eosinophils (Bld) [#/Vol] 0.4 10*3/uL 0.0 - 0.5 10*3/uL [facility] Eosinophils/100 WBC (Bld) 7.2 % High 0.0 - 6.0 % [facility] Erythrocyte distribution width (RBC) [Ratio] 16.3 % High 11.5 - 15.0 % [facility] Hematocrit (Bld) [Volume fraction] 25.5 % Low 35.0 - 47.0 % [facility] Hemoglobin (Bld) [Mass/Vol] 8.2 g/dL Low 11.7 - 16.0 g/dL [facility] [employer] Immature granulocytes (Bld) [#/Vol] 0 10*3/uL NINF - 0.1 10*3/uL [facility] [employer] Immature granulocytes/100 WBC (Bld) 0.3 % 0.0 - 2.0 % [facility] Interpretation and review of laboratory results Abnormal [facility] Lymphocytes (Bld) [#/Vol] 1.1 10*3/uL 1.0 - 4.3 10*3/uL [facility] [employer] Lymphocytes/100 WBC (Bld) 18.6 % 15.0 - 45.0 % [facility] MCH (RBC) [Entitic mass] 29.1 pg 26.0 - 34.0 pg [facility] MCHC (RBC) [Mass/Vol] 32.2 % 30.5 - 36.0 % [facility] MCV (RBC) [Entitic vol] 90.4 fL 77.0 - 99.0 fL [facility] [employer] Monocytes (Bld) [#/Vol] 0.4 10*3/uL 0.0 - 0.9 10*3/uL [facility] [employer] Monocytes/100 WBC (Bld) 7.6 % 5.0 - 13.0 % [facility] Neutrophils (Bld) [#/Vol] 3.8 10*3/uL 1.8 - 7.5 10*3/uL [facility] [employer] Neutrophils/100 WBC (Bld) 65.8 % 38.0 - 82.0 % [facility] Nucleated RBC/100 WBC (Bld) [Ratio] 0 % [facility] Platelet mean volume (Bld) [Entitic vol] 10.6 fL 9.0 - 12.7 fL [facility] [employer] Platelets (Bld) [#/Vol] 198 10*3/uL 140 - 440 10*3/uL [facility] RBC (Bld) [#/Vol] 2.82 10*6/uL Low 3.80 - 5.2 0 10*6/uL [facility] [employer] WBC (Bld) [#/Vol] 5.8 10*3/uL 3.6 - 10.7 10*3/uL [facility] CBC WITH AUTO DIFFERENTIALon 08-24-2024 Basophils (Bld) [#/Vol] 0.0 10*3/uL Normal 0.0-0.2 [facility] Comment on above: Performed By: #### L [id number] ####Textile Engineer: MARY SOTELO ([phone])[facility])[address] [place] [address] Basophils/100 WBC (Bld) 0.5 % Normal 0.0-2.0 [facility] Comment on above: Performed By: #### L [id number] ####Textile Engineer: MARY SOTELO ([id number])[facility])50 [place] [address] Eosinophils (Bld) [#/Vol] 0.4 10*3/uL Normal 0.0-0.5 [facility] Comment on above: Performed By: #### L [id number] ####Textile Engineer: MARY SOTELO ([phone])[facility])[address] [place] [address] Eosinophils/100 WBC (Bld) 7.2 % High 0.0-6.0 [facility] Comment on above: Performed By: #### L [id number] ####Textile Engineer: MARY SOTELO ([phone])[facility])[address] [place] [address] Erythrocyte distribution width (RBC) [Ratio] 16.3 % High 11.5-15.0 [facility] Comment on above: Performed By: #### L [id number] ####Textile Engineer: MARY SOTELO ([phone])[facility])[address] [place] [address] Hematocrit (Bld) [Volume fraction] 25.5 % Low 35.0-47.0 [facility] Comment on above: Performed By: #### L [id number] ####Textile Engineer: MARY SOTELO ([id number])[facility])[address] [place] [address] Hemoglobin (Bld) [Mass/Vol] 8.2 g/dL Low 11.7-16.0 [facility] Comment on above: Performed By: #### L [id number] ####Textile Engineer: MARY [id number])[facility] ([facility])[address] [place] [address] IMMATURE GRANS % 0.3 % Normal 0.0-2.0 [facility] Comment on above: Performed By: #### L [id number] ####Textile Engineer: MARY SOTELO ([phone])[facility])[address] [place] [address] IMMATURE GRANS ABSOLUTE 0.0 10*3/uL Normal <0.1 [facility] Comment on above: Performed By: #### L [id number] ####Textile Engineer: MARY SOTELO ([phone])[facility])[address] [place] [address] Lymphocytes (Bld) [#/Vol] 1.1 10*3/uL Normal 1.0-4.3 [facility] Comment on above: Performed By: #### L [id number] ####Textile Engineer: MARY SOTELO ([phone])[facility])[address] [place] [address] Lymphocytes/100 WBC (Bld) 18.6 % Normal 15.0-45.0 [facility] Comment on above: Performed By: #### L [id number] ####Textile Engineer: MARY SOTELO ([phone])[facility])[address] [place] [address] MCH (RBC) [Entitic mass] 29.1 pg Normal 26.0-34.0 [facility] Comment on above: Performed By: #### L [id number] ####Textile Engineer: MARY SOTELO ([phone])[facility])[address] [place] [address] MCHC 32.2 % Normal 30.5-36.0 [facility] Comment on above: Performed By: #### L [id number] ####Textile Engineer: MARY SOTELO ([phone])[facility])[address] [place] [address] MCV (RBC) [Entitic vol] 90.4 fL Normal 77.0-99.0 [facility] Comment on above: Performed By: #### L [id number] ####Textile Engineer: MARY SOTELO ([phone])[facility])[address] [place] [address] Monocytes (Bld) [#/Vol] 0.4 10*3/uL Normal 0.0-0.9 [facility] Comment on above: Performed By: #### L [id number] ####Textile Engineer: MARY SOTELO ([phone])[facility] ([facility])[address] [place] [address] Monocytes/100 WBC (Bld) 7.6 % Normal 5.0-13.0 [facility] Comment on above: Performed By: #### L [id number] ####Textile Engineer: MARY SOTELO ([id number])[facility])[address] [place] [address] NEUTROPHILS ABSOLUTE 3.8 10*3/uL Normal 1.8-7.5 [facility] Comment on above: Performed By: #### L [id number] ####Textile Engineer: MARY SOTELO ([id number])[facility])[address] [place] [address] Neutrophils/100 WBC (Bld) 65.8 % Normal 38.0-82.0 [facility] Comment on above: Performed By: #### L [id number] ####Textile Engineer: MARY SOTELO ([phone])[facility])[address] [place] [address] NRBC 0.0 /100 WBCs Normal 0.0-2.0 [facility] Comment on above: Performed By: #### L [id number] ####Textile Engineer: MARY SOTELO ([phone])[facility])[address] [place] [address] Platelet mean volume (Bld) [Entitic vol] 10.6 fL Normal 9.0-12.7 [facility] Comment on above: Performed By: #### L [id number] ####Textile Engineer: MARY SOTELO ([id number])[facility] ([facility])[address] [place] [address] Platelets (Bld) [#/Vol] 198 10*3/uL Normal 140-440 [facility] Comment on above: Performed By: #### L [id number] ####Textile Engineer: MARY SOTELO ([id number])[facility] ([facility])[address] [place] [address] RBC (Bld) [#/Vol] 2.82 10*6/uL Low 3.80-5.20 [facility] Comment on above: Performed By: #### L [id number] ####Textile Engineer: MARY SOTELO ([id number])[facility] ([facility])[address] [place] [address] WBC (Bld) [#/Vol] 5.8 10*3/uL Normal 3.6-10.7 [facility] Comment on above: Performed By: #### L [id number] ####Textile Engineer: MARY SOTELO ([id number])[facility] ([facility])[address] [place] [address] Laboratory - Chemistry and C hemistry - challengeon 08-24-2024 Glucose [Mass/Vol] 293 mg/dL High 70 - 100 mg/dL [facility] Glucose [Mass/Vol] 219 mg/dL High 70 - 100 mg/dL [facility] Glucose [Mass/Vol] 277 mg/dL High 70 - 100 mg/dL [facility] Magnesium [Mass/Vol] 1.8 mg/dL 1.6 - 2 .3 mg/dL [facility] MAGNESIUMon 08-24-2024 Magnesium [Mass/Vol] 1.8 mg/dL Normal 1.6-2.3 [facility] Comment on above: Performed By: #### L AB113, LAB15, [id number] ####Textile Engineer: MARY SOTELO ([id number])[facility] ([facility])[address] [place] [address] Magnesium [Mass/Vol]on 08-24 Interpretation and review of laboratory results Normal [facility] No Panel Informationon 08-24 Interpretation and review of laboratory results Abnormal [facility] Interpretation and review of laboratory results Abnormal [facility] Interpretation and review of laboratory results Abnormal [facility] PHOSPHORUSon 08-24-2024 Phosphate [Mass/Vol] 1.8 mg/dL Low 2.5-4.5 [facility] Comment on above: Performed By: #### L AB113, LAB15, [id number] ####Textile Engineer: MARY SOTELO ([phone])[facility] ([facility])[address] [place] [address] [place] Phosphate [Moles/Vol]on 08-04 Interpretation and review of laboratory results Abnormal [facility] Phosphate [Mass/Vol] 1.8 mg/dL Low 2.5 - 4 .5 mg/dL [facility] Progress Noteon 08-24-2024 Progress Note Normal [facility] BASIC METABOLIC PANELon 08-04 Anion gap [Moles/Vol] 5 mmol/L Normal 3-[address] [facility] Comment on above: Performed By: #### L AB15, [id number], [id number] ####Textile Engineer: MARY SOTELO ([id number])[facility] ([facility])[address] [place] [address] [place] Calcium [Mass/Vol] 7.3 mg/dL Low 8.4-10.4 [facility] Comment on above: Performed By: #### Dora AB15, [id number], [id number] ####Textile Engineer: MARY SOTELO ([id number])[facility] ([facility])[address] [place] [address] [place] Chloride [Moles/Vol] 99 mmol/L Normal 98-107 [facility] Comment on above: Performed By: #### L AB15, [id number], [id number] ####Textile Engineer: MARY SOTELO ([phone])[facility] ([facility])[address] [place] [address] [place] CO2 [Moles/Vol] 27 mmol/L Normal 22-30 [facility] Comment on above: Performed By: #### L AB15, [id number], [id number] ####Textile Engineer: MARY SOTELO ([phone])[facility])[address] [place] [address] Creatinine [Mass/Vol] 3.39 mg/dL High 0.52-1.[address] [facility] Comment on above: Performed By: #### L AB15, [id number], [id number] ####Textile Engineer: MARY SOTELO ([id number])[facility] ([facility])[address] [place] [address] GLOMERULAR FILTRATION RATE ML/MIN/1.73 SQ M.PREDICTED 14.6 mL/min/1.73m*2 Low >60.0 [facility] Comment on above: Result Comment: Calc ulation based on the Chronic Kidney Disease Epidemiology Collaboration (CKD-EPI) equation refit without adjustment for race Performed By: #### L AB15, [id number], [id number] ####Textile Engineer: MARY SOTELO ([id number])[facility] ([facility])[address] [place] [address] Glucose [Mass/Vol] 299 mg/dL High 70-100 [facility] Comment on above: Performed By: #### L AB15, [id number], [id number] ####Textile Engineer: MARY SOTELO ([id number])[facility] ([facility])[address] [place] [address] Potassium [Moles/Vol] 4.0 mmol/L Normal 3.5-5.[address] [facility] Comment on above: Performed By: #### L AB15, [id number], [id number] ####Textile Engineer: MARY SOTELO ([id number])[facility] ([facility])[address] [place] [address] [place] Sodium [Moles/Vol] 130 mmol/L Low 135-145 [facility] Comment on above: Performed By: #### L AB15, [id number], [id number] ####Textile Engineer: MARY SOTELO ([phone])[facility])[address] [place] [address] [place] Urea nitrogen [Mass/Vol] 37 mg/dL High 7-17 [facility] Comment on above: Performed By: #### L AB15, [id number], [id number] ####Textile Engineer: MARY SOTELO ([id number])[facility] ([facility])[address] Bacteria identified Cx Nom ( U)Ordered By: Kalia Gifford on 08-23-2024 Interpretation and review of laboratory results Abnormal [facility] Basic metabolic 1998 panelon 08-23-2024 Anion gap [Moles/Vol] 5 mmol/L 3 - 13 mmol/L [facility] Calcium [Mass/Vol] 7.3 mg/dL Low 8.4 - 10. 4 mg/dL [facility] Chloride [Moles/Vol] 99 mmol/L 98 - 10 7 mmol/L [facility] CO2 [Moles/Vol] 27 mmol/L 22 - 30 mmol/L [facility] Creatinine [Mass/Vol] 3.39 mg/dL High 0.52 - 1.04 mg/dL [facility] GFR/1.73 sq M.predicted (S/P/Bld) [Vol rate/Area] 14.6 mL/min Low - PINF [facility] Glucose [Mass/Vol] 299 mg/dL High 70 - 100 mg/dL [facility] Interpretation and review of laboratory results Abnormal [facility] Potassium [Moles/Vol] 4 mmol/L 3.5 - 5.1 mmol/L [facility] Sodium [Moles/Vol] 130 mmol/L Low 135 - 145 mmol/L [facility] Urea nitrogen [Mass/Vol] 37 mg/dL High 7 - 17 mg/dL [facility] CARECOORDon 08-23-2024 CARECOORD Normal [facility] CBC W Auto Differential pane l (Bld)on 08-23-2024 Basophils (Bld) [#/Vol] 0 10*3/uL 0.0 - 0.2 10*3/uL [facility] Basophils/100 WBC (Bld) 0.2 % 0.0 - 2.0 % [facility] Eosinophils (Bld) [#/Vol] 0.1 10*3/uL 0.0 - 0.5 10*3/uL [facility] Eosinophils/100 WBC (Bld) 1.1 % 0.0 - 6.0 % [facility] Erythrocyte distribution width (RBC) [Ratio] 15.9 % High 11.5 - 15.0 % [facility] Hematocrit (Bld) [Volume fraction] 25.5 % Low 35.0 - 47.0 % [facility] Hemoglobin (Bld) [Mass/Vol] 8.2 g/dL Low 11.7 - 16.0 g/dL [facility] Immature granulocytes (Bld) [#/Vol] 0 10*3/uL NINF - 0.1 10*3/uL [facility] Immature granulocytes/100 WBC (Bld) 0.5 % 0.0 - 2.0 % [facility] Interpretation and review of laboratory results Abnormal [facility] Lymphocytes (Bld) [#/Vol] 0.6 10*3/uL Low 1.0 - 4.3 10*3/uL [facility] Lymphocytes/100 WBC (Bld) 14.6 % Low 15.0 - 45.0 % [facility] MCH (RBC) [Entitic mass] 28.9 pg 26.0 - 34.0 pg [facility] MCHC (RBC) [Mass/Vol] 32.2 % 30.5 - 36.0 % [facility] MCV (RBC) [Entitic vol] 89.8 fL 77.0 - 99.0 fL [facility] Monocytes (Bld) [#/Vol] 0.3 10*3/uL 0.0 - 0.9 10*3/uL [facility] Monocytes/100 WBC (Bld) 7.3 % 5.0 - 13.0 % [facility] Neutrophils (Bld) [#/Vol] 3.4 10*3/uL 1.8 - 7.5 10*3/uL [facility] Neutrophils/100 WBC (Bld) 76.3 % 38.0 - 82.0 % [facility] Nucleated RBC/100 WBC (Bld) [Ratio] 0 % [facility] Platelet mean volume (Bld) [Entitic vol] 10.4 fL 9.0 - 12.7 fL [facility] Platelets (Bld) [#/Vol] 167 10*3/uL 140 - 440 10*3/uL [facility] RBC (Bld) [#/Vol] 2.84 10*6/uL Low 3.80 - 5.2 0 10*6/uL [facility] WBC (Bld) [#/Vol] 4.4 10*3/uL 3.6 - 10.7 10*3/uL [facility] CBC WITH AUTO DIFFERENTIALon 08-23-2024 Basophils (Bld) [#/Vol] 0.0 10*3/uL Normal 0.0-0.2 [facility] Comment on above: Performed By: #### L [id number] ####Textile Engineer: MARY SOTELO ([phone])[facility])[address] [place] [address] Basophils/100 WBC (Bld) 0.2 % Normal 0.0-2.0 [facility] Comment on above: Performed By: #### L [id number] ####Textile Engineer: MARY SOTELO ([id number])[facility])[address] [place] [address] Eosinophils (Bld) [#/Vol] 0.1 10*3/uL Normal 0.0-0.5 [facility] Comment on above: Performed By: #### L [id number] ####Textile Engineer: MARY SOTELO ([phone])[facility])[address] [place] [address] Eosinophils/100 WBC (Bld) 1.1 % Normal 0.0-6.0 [facility] Comment on above: Performed By: #### L [id number] ####Textile Engineer: MARY SOTELO ([id number])[facility])[address] [place] [address] Erythrocyte distribution width (RBC) [Ratio] 15.9 % High 11.5-15.0 [facility] Comment on above: Performed By: #### L [id number] ####Textile Engineer: MARY SOTELO ([id number])[facility])[address] [place] [address] Hematocrit (Bld) [Volume fraction] 25.5 % Low 35.0-47.0 [facility] Comment on above: Performed By: #### L [id number] ####Textile Engineer: MARY SOTELO ([id number])[facility])[address] [place] [address] Hemoglobin (Bld) [Mass/Vol] 8.2 g/dL Low 11.7-16.0 [facility] Comment on above: Performed By: #### L [id number] ####Textile Engineer: MARY SOTELO ([phone])[facility])[address] [place] [address] IMMATURE GRANS % 0.5 % Normal 0.0-2.0 [facility] Comment on above: Performed By: #### L [id number] ####Textile Engineer: MARY SOTELO ([phone])[facility])[address] [place] [address] IMMATURE GRANS ABSOLUTE 0.0 10*3/uL Normal <0.1 [facility] Comment on above: Performed By: #### L [id number] ####Textile Engineer: MARY SOTELO ([id number])[facility] ([facility])[address] [place] [address] Lymphocytes (Bld) [#/Vol] 0.6 10*3/uL Low 1.0-4.3 [facility] Comment on above: Performed By: #### L [id number] ####Textile Engineer: MARY SOTELO ([phone])[facility])[address] [place] [address] Lymphocytes/100 WBC (Bld) 14.6 % Low 15.0-45.0 [facility] Comment on above: Performed By: #### L [id number] ####Textile Engineer: MARY SOTELO ([phone])[facility])[address] [place] [address] MCH (RBC) [Entitic mass] 28.9 pg Normal 26.0-34.0 [facility] Comment on above: Performed By: #### L [id number] ####Textile Engineer: MARY SOTELO ([id number])[facility] [place] [address] MCHC 32.2 % Normal 30.5-36.0 [facility] Comment on above: Performed By: #### L [id number] ####Textile Engineer: MARY SOTELO ([id number])[facility] ([facility])[address] [place] [address] MCV (RBC) [Entitic vol] 89.8 fL Normal 77.0-99.0 [facility] Comment on above: Performed By: #### L [id number] ####Textile Engineer: MARY SOTELO ([phone])[facility] ([facility])[address] [place] [address] Monocytes (Bld) [#/Vol] 0.3 10*3/uL Normal 0.0-0.9 [facility] Comment on above: Performed By: #### L [id number] ####Textile Engineer: MARY SOTELO ([id number])[facility] ([facility])[address] [place] [address] Monocytes/100 WBC (Bld) 7.3 % Normal 5.0-13.0 [facility] Comment on above: Performed By: #### L [id number] ####Textile Engineer: MARY SOTELO ([id number])[facility] ([facility])[address] [place] [address] NEUTROPHILS ABSOLUTE 3.4 10*3/uL Normal 1.8-7.5 [facility] Comment on above: Performed By: #### L [id number] ####Textile Engineer: MARY SOTELO ([phone])[facility] ([facility])[address] [place] [address] Neutrophils/100 WBC (Bld) 76.3 % Normal 38.0-82.0 [facility] Comment on above: Performed By: #### L [id number] ####Textile Engineer: MARY SOTELO ([id number])[facility] ([facility])[address] [place] [address] NRBC 0.0 /100 WBCs Normal 0.0-2.0 [facility] Comment on above: Performed By: #### L [id number] ####Textile Engineer: MARY SOTELO ([phone])[facility])[address] [place] [address] Platelet mean volume (Bld) [Entitic vol] 10.4 fL Normal 9.0-12.7 [facility] Comment on above: Performed By: #### L [id number] ####Textile Engineer: MARY SOTELO ([id number])[facility] ([facility])[address] [place] [address] Platelets (Bld) [#/Vol] 167 10*3/uL Normal 140-440 [facility] Comment on above: Performed By: #### L [id number] ####Textile Engineer: MARY SOTELO ([phone])[facility])[address] [place] [address] RBC (Bld) [#/Vol] 2.84 10*6/uL Low 3.80-5.20 [facility] Comment on above: Performed By: #### L [id number] ####Textile Engineer: MARY SOTELO ([id number])[facility])[address] [place] [address] WBC (Bld) [#/Vol] 4.4 10*3/uL Normal 3.6-10.7 [facility] Comment on above: Performed By: #### L [id number] ####Textile Engineer: MARY SOTELO ([phone])[facility])[address] [place] [address] Consulton 08-23-2024 Consult Normal [facility] HBV surface Ab IA Qnon 08-23 [facility] HBV surface Ag IA Qlon 08-23 Interpretation and review of laboratory results Normal [facility] HEPATITIS B SURFACE ANTIBODY on 08-23-2024 HEPATITIS B VIRUS SURFACE AB <8.0 Normal [facility] Comment on above: Result Comment: BINA Olivarez COMMENTS:Interpretation:<8.0 Non-Reactive8.0-11.9 Equivocal>= 12.0 Ab DetectedNote: If an equivocal result is interpreted, an antibody status is unable to be determined. Collect new specimen if clinically indicated. Performed By: #### L [id number], [id number] ####Textile Engineer: MARY SOTELO ([phone])[facility])[address] [place] [address] HEPATITIS B SURFACE ANTIGENo n 08-23-2024 HEPATITIS B VIRUS SURFACE AG Not detected Normal Not Detected [facility] Comment on above: Performed By: #### L AB472, [id number] ####Textile Engineer: MARY SOTELO ([id number])[facility] ([facility])[address] [place] [address] IDNon 08-23-2024 IDN Normal [facility] IDN Normal [facility] Laboratory - Chemistry and C hemistry - challengeon 08-23-2024 Glucose [Mass/Vol] 126 mg/dL High 70 - 100 mg/dL [facility] Glucose [Mass/Vol] 166 mg/dL High 70 - 100 mg/dL [facility] Glucose [Mass/Vol] 129 mg/dL High 70 - 100 mg/dL [facility] Glucose [Mass/Vol] 287 mg/dL High 70 - 100 mg/dL [facility] Glucose [Mass/Vol] 304 mg/dL High 70 - 100 mg/dL [facility] Magnesium [Mass/Vol] 1.9 mg/dL 1.6 - 2 .3 mg/dL [facility] Laboratory - Microbiology an d Antimicrobial susceptibilityon 08-23-2024 HBV surface Ab IA Qn mIU/mL [facility] HBV surface Ag IA Ql Not detected Not Detected [facility] Laboratory - Microbiology an d Antimicrobial susceptibilityOrdered By: Kalia Gifford on 08-23-2024 Bacteria identified Cx Nom (U) Normal urogenital keven present [facility] Bacteria identified Cx Nom (U) 50,000-90,000 CFU/mL Abbi albicans Abnormal [facility] MAGNESIUMon 08-23-2024 Magnesium [Mass/Vol] 1.9 mg/dL Normal 1.6-2.3 [facility] Comment on above: Performed By: #### L AB15, [id number], [id number] ####Textile Engineer: MARY SOTELO ([phone])[facility] ([facility])[address] [place] [address] No Panel Informationon 08-23 Interpretation and review of laboratory results Abnormal [facility] Interpretation and review of laboratory results Abnormal [facility] Interpretation and review of laboratory results Abnormal [facility] Interpretation and review of laboratory results Abnormal [facility] Interpretation and review of laboratory results Abnormal [facility] Interpretation and review of laboratory results Normal [facility] Nursing Noteon 08-23-2024 Nursing Note Normal [facility] PHOSPHORUSon 08-23-2024 Phosphate [Mass/Vol] 2.5 mg/dL Normal 2.5-4.5 [facility] Comment on above: Performed By: #### L AB15, [id number], [id number] ####Textile Engineer: MARY SOTELO ([id number])[facility] ([facility] [place] [address] [place] Phosphate [Moles/Vol]on 08-04 Phosphate [Mass/Vol] 2.5 mg/dL 2.5 - 4 .5 mg/dL [facility] Progress Noteon 08-23-[address] [facility] Progress Note Normal [facility] Progress Note Normal [facility] US Kidneyon 08-23-2024 [facility] Radiology Study observation (narrative) [facility] US KidneyOrdered By: Daniel esquivel on 08-23-2024 [facility] Work Phone: US RENAL COMPLETEon 08-23-20 US RENAL COMPLETE Normal [facility] BASIC METABOLIC PANELon 08-04 Anion gap [Moles/Vol] 5 mmol/L Normal 3-13 [facility] Comment on above: Performed By: #### L AB103, LAB15, [id number] ####Textile Engineer: MARY SOTELO ([id number])[facility] ([facility] [place] [address] [place] Calcium [Mass/Vol] 7.3 mg/dL Low 8.4-10.4 [facility] Comment on above: Performed By: #### L AB103, LAB15, [id number] ####Textile Engineer: MARY SOTELO ([id number])[facility] ([facility])[address] [place] [address] Chloride [Moles/Vol] 97 mmol/L Low 98-107 [facility] Comment on above: Performed By: #### Dora AB103, LAB15, [id number] ####Textile Engineer: MARY SOTELO ([phone])[facility] [place] [address] CO2 [Moles/Vol] 28 mmol/L Normal 22-30 [facility] Comment on above: Performed By: #### Dora AB103, LAB15, [id number] ####Textile Engineer: MARY SOTELO ([phone])[facility] ([facility])[address] [place] [address] Creatinine [Mass/Vol] 3.04 mg/dL High 0.52-1.[address] [facility] Comment on above: Performed By: #### Dora AB103, LAB15, [id number] ####Textile Engineer: MARY SOTELO ([id number])[facility] ([facility])[address] [place] [address] [place] GLOMERULAR FILTRATION RATE ML/MIN/1.73 SQ M.PREDICTED 16.6 mL/min/1.73m*2 Low >60.0 [facility] Comment on above: Result Comment: Calc ulation based on the Chronic Kidney Disease Epidemiology Collaboration (CKD-EPI) equation refit without adjustment for race Performed By: #### L AB103, LAB15, [id number] ####Textile Engineer: MARY SOTELO ([phone])[facility] ([facility])[address] [place] [address] [place] Glucose [Mass/Vol] 309 mg/dL High 70-100 [facility] Comment on above: Performed By: #### L AB103, LAB15, [id number] ####Textile Engineer: MARY [id number])[facility] [place] [address] Potassium [Moles/Vol] 3.4 mmol/L Low 3.5-5.[address] [facility] Comment on above: Performed By: #### L AB103, LAB15, [id number] ####Textile Engineer: MARY SOTELO ([phone])[facility])[address] [place] [address] Sodium [Moles/Vol] 130 mmol/L Low 135-145 [facility] Comment on above: Performed By: #### L AB103, LAB15, [id number] ####Textile Engineer: MARY SOTELO ([phone])[facility])[address] [place] [address] Urea nitrogen [Mass/Vol] 28 mg/dL High 7-17 [facility] Comment on above: Performed By: #### L AB103, LAB15, [id number] ####Textile Engineer: MARY SOTELO ([phone])[facility] ([facility])[address] [place] [address] Basic metabolic 1998 panelon 08-22-2024 Anion gap [Moles/Vol] 5 mmol/L 3 - 13 mmol/L [facility] Calcium [Mass/Vol] 7.3 mg/dL Low 8.4 - 10. 4 mg/dL [facility] Chloride [Moles/Vol] 97 mmol/L Low 98 - 10 7 mmol/L [facility] CO2 [Moles/Vol] 28 mmol/L 22 - 30 mmol/L [facility] Creatinine [Mass/Vol] 3.04 mg/dL High 0.52 - 1.04 mg/dL [facility] GFR/1.73 sq M.predicted (S/P/Bld) [Vol rate/Area] 16.6 mL/min Low - PINF [facility] Glucose [Mass/Vol] 309 mg/dL High 70 - 100 mg/dL [facility] Interpretation and review of laboratory results Abnormal [facility] Potassium [Moles/Vol] 3.4 mmol/L Low 3.5 - 5.1 mmol/L [facility] Sodium [Moles/Vol] 130 mmol/L Low 135 - 145 mmol/L [facility] Urea nitrogen [Mass/Vol] 28 mg/dL High 7 - 17 mg/dL [facility] CALCIUM, IONIZEDon CALCIUM IONIZED 3.90 mg/dL Low 4.30-5.20 [facility] Comment on above: Performed By: #### L [id number] ####Textile Engineer: MARY SOTELO ([phone])[facility] ([facility])[address] [place] [address] PH, IONIZED CALCIUM 7.42 Normal 7.31-7.46 [facility] Comment on above: Performed By: #### L AB54 ####Textile Engineer: MARY SOTELO ([phone])[facility] ([facility])[address] [place] [address] CBC W Auto Differential pane l (Bld)on 08-22-2024 Basophils (Bld) [#/Vol] 0 10*3/uL 0.0 - 0.2 10*3/uL [facility] Basophils/100 WBC (Bld) 0.4 % 0.0 - 2.0 % [facility] Eosinophils (Bld) [#/Vol] 0.4 10*3/uL 0.0 - 0.5 10*3/uL [facility] Eosinophils/100 WBC (Bld) 7.7 % High 0.0 - 6.0 % [facility] Erythrocyte distribution width (RBC) [Ratio] 16.2 % High 11.5 - 15.0 % [facility] Hematocrit (Bld) [Volume fraction] 26.6 % Low 35.0 - 47.0 % [facility] Hemoglobin (Bld) [Mass/Vol] 8.6 g/dL Low 11.7 - 16.0 g/dL [facility] Immature granulocytes (Bld) [#/Vol] 0 10*3/uL NINF - 0.1 10*3/uL [facility] [employer] Immature granulocytes/100 WBC (Bld) 0.4 % 0.0 - 2.0 % [facility] Interpretation and review of laboratory results Abnormal [facility] Lymphocytes (Bld) [#/Vol] 0.9 10*3/uL Low 1.0 - 4.3 10*3/uL [facility] [employer] Lymphocytes/100 WBC (Bld) 18.2 % 15.0 - 45.0 % [facility] MCH (RBC) [Entitic mass] 29.8 pg 26.0 - 34.0 pg [facility] MCHC (RBC) [Mass/Vol] 32.3 % 30.5 - 36.0 % [facility] MCV (RBC) [Entitic vol] 92 fL 77.0 - 99.0 fL [facility] Monocytes (Bld) [#/Vol] 0.4 10*3/uL 0.0 - 0.9 10*3/uL [facility] Monocytes/100 WBC (Bld) 7.9 % 5.0 - 13.0 % [facility] Neutrophils (Bld) [#/Vol] 3.1 10*3/uL 1.8 - 7.5 10*3/uL [facility] Neutrophils/100 WBC (Bld) 65.4 % 38.0 - 82.0 % [facility] Nucleated RBC/100 WBC (Bld) [Ratio] 0 % [facility] Platelet mean volume (Bld) [Entitic vol] 10.1 fL 9.0 - 12.7 fL [facility] Platelets (Bld) [#/Vol] 161 10*3/uL 140 - 440 10*3/uL [facility] RBC (Bld) [#/Vol] 2.89 10*6/uL Low 3.80 - 5.2 0 10*6/uL [facility] WBC (Bld) [#/Vol] 4.8 10*3/uL 3.6 - 10.7 10*3/uL [facility] CBC WITH AUTO DIFFERENTIALon 08-22-2024 Basophils (Bld) [#/Vol] 0.0 10*3/uL Normal 0.0-0.2 [facility] Comment on above: Performed By: #### L [id number] ####Textile Engineer: MARY SOTELO ([id number])[address] Basophils/100 WBC (Bld) 0.4 % Normal 0.0-2.0 [facility] Comment on above: Performed By: #### L [id number] ####Textile Engineer: MARY SOTELO ([id number])[facility] Eosinophils (Bld) [#/Vol] 0.4 10*3/uL Normal 0.0-0.5 [facility] Comment on above: Performed By: #### L [id number] ####Textile Engineer: MARY SOTELO ([id number])[facility])[address] [place] [address] Eosinophils/100 WBC (Bld) 7.7 % High 0.0-6.0 [facility] Comment on above: Performed By: #### L [id number] ####Textile Engineer: MARY SOTELO ([phone])[address] Erythrocyte distribution width (RBC) [Ratio] 16.2 % High 11.5-15.0 [facility] Comment on above: Performed By: #### L [id number] ####Textile Engineer: MARY SOTELO ([phone])[facility])[address] [place] [address] Hematocrit (Bld) [Volume fraction] 26.6 % Low 35.0-47.0 [facility] Comment on above: Performed By: #### L [id number] ####Textile Engineer: MARY SOTELO ([id number])[address] Hemoglobin (Bld) [Mass/Vol] 8.6 g/dL Low 11.7-16.0 [facility] Comment on above: Performed By: #### L [id number] ####Textile Engineer: MARY SOTELO ([id number])[facility])[address] [place] [address] IMMATURE GRANS % 0.4 % Normal 0.0-2.0 [facility] Comment on above: Performed By: #### L [id number] ####Textile Engineer: MARY SOTELO ([id number])[address] IMMATURE GRANS ABSOLUTE 0.0 10*3/uL Normal <0.1 [facility] Comment on above: Performed By: #### L [id number] ####Textile Engineer: MARY SOTELO ([id number])[facility])[address] [place] [address] Lymphocytes (Bld) [#/Vol] 0.9 10*3/uL Low 1.0-4.3 [facility] Comment on above: Performed By: #### L [id number] ####Textile Engineer: MARY SOTELO ([id number])[facility])[address] [place] [address] Lymphocytes/100 WBC (Bld) 18.2 % Normal 15.0-45.0 [facility] Comment on above: Performed By: #### L [id number] ####Textile Engineer: MARY SOTELO ([id number])[address] MCH (RBC) [Entitic mass] 29.8 pg Normal 26.0-34.0 [facility] Comment on above: Performed By: #### L [id number] ####Textile Engineer: MARY SOTELO ([id number])[address] MCHC 32.3 % Normal 30.5-36.0 [facility] Comment on above: Performed By: #### L [id number] ####Textile Engineer: MARY SOTELO ([phone])[facility])[address] [place] [address] MCV (RBC) [Entitic vol] 92.0 fL Normal 77.0-99.0 [facility] Comment on above: Performed By: #### L [id number] ####Textile Engineer: MARY SOTELO ([phone])[facility])[address] [place] [address] Monocytes (Bld) [#/Vol] 0.4 10*3/uL Normal 0.0-0.9 [facility] Comment on above: Performed By: #### L [id number] ####Textile Engineer: MARY SOTELO ([phone])[facility] ([facility])[address] [place] [address] Monocytes/100 WBC (Bld) 7.9 % Normal 5.0-13.0 [facility] Comment on above: Performed By: #### L [id number] ####Textile Engineer: MARY SOTELO ([phone])[facility] ([facility])[address] [place] [address] NEUTROPHILS ABSOLUTE 3.1 10*3/uL Normal 1.8-7.5 [facility] Comment on above: Performed By: #### L [id number] ####Textile Engineer: MARY SOTELO ([id number])[facility] ([facility])[address] [place] [address] Neutrophils/100 WBC (Bld) 65.4 % Normal 38.0-82.0 [facility] Comment on above: Performed By: #### L [id number] ####Textile Engineer: MARY SOTELO ([phone])[facility] ([facility])[address] [place] [address] NRBC 0.0 /100 WBCs Normal 0.0-2.0 [facility] Comment on above: Performed By: #### L [id number] ####Textile Engineer: MARY SOTELO ([id number])[facility] ([facility])[address] [place] [address] Platelet mean volume (Bld) [Entitic vol] 10.1 fL Normal 9.0-12.7 [facility] Comment on above: Performed By: #### L [id number] ####Textile Engineer: MARY SOTELO ([phone])[facility] ([facility])[address] [place] [address] [place] Platelets (Bld) [#/Vol] 161 10*3/uL Normal 140-440 [facility] Comment on above: Performed By: #### L [id number] ####Textile Engineer: MARY SOTELO ([id number])[facility] ([address] RBC (Bld) [#/Vol] 2.89 10*6/uL Low 3.80-5.20 [facility] Comment on above: Performed By: #### L [id number] ####Textile Engineer: MARY SOTELO ([id number])[facility] ([facility])[address] [place] [address] WBC (Bld) [#/Vol] 4.8 10*3/uL Normal 3.6-10.7 [facility] Comment on above: Performed By: #### L [id number] ####Textile Engineer: MARY SOTELO ([phone])[facility])[address] [place] [address] Calcium.ionized [Moles/Vol]o n 08-22-2024 Calcium.ionized (Bld) [Moles/Vol] 3.9 mg/dL Low 4.30 - 5.20 mg/dL [facility] Interpretation and review of laboratory results Abnormal [facility] PH, IONIZED CALCIUM 7.42 7.31 - 7.46 [facility] IDNon 08-22-2024 IDN Normal [facility] - Chemistry and C hemistry - challengeon 08-22-2024 Glucose [Mass/Vol] 257 mg/dL High 70 - 100 mg/dL [facility] Glucose [Mass/Vol] 255 mg/dL High 70 - 100 mg/dL [facility] Glucose [Mass/Vol] 287 mg/dL High 70 - 100 mg/dL [facility] Glucose [Mass/Vol] 310 mg/dL High 70 - 100 mg/dL [facility] Magnesium [Mass/Vol] 2 mg/dL 1.6 - 2 .3 mg/dL [facility] MAGNESIUMon 08-22-2024 Magnesium [Mass/Vol] 2.0 mg/dL Normal 1.6-2.3 [facility] Comment on above: Performed By: #### L AB103, LAB15, [id number] ####Textile Engineer: MARY SOTELO ([phone])[facility])[address] [place] [address] Magnesium [Mass/Vol]on 08-22 Interpretation and review of laboratory results Normal [facility] No Panel Informationon 08-22 Interpretation and review of laboratory results Abnormal [facility] Interpretation and review of laboratory results Abnormal [facility] Interpretation and review of laboratory results Abnormal [facility] Interpretation and review of laboratory results Abnormal [facility] PHOSPHORUSon 08-22-2024 Phosphate [Mass/Vol] 2.3 mg/dL Low 2.5-4.5 [facility] Comment on above: Performed By: #### L AB103, LAB15, [id number] ####Textile Engineer: MARY SOTELO ([phone])[facility])[address] [place] [address] [place] Phosphate [Moles/Vol]on 08-04 Interpretation and review of laboratory results Abnormal [facility] Phosphate [Mass/Vol] 2.3 mg/dL Low 2.5 - 4 .5 mg/dL [facility] Progress Noteon 08-22-[address] [facility] Note [facility] Progress Note Normal [facility] Progress Note Normal [facility] BASIC METABOLIC PANELon 08-03 Anion gap [Moles/Vol] 7 mmol/L Normal 3-[address] [facility] Comment on above: Performed By: #### L AB113, LAB15, [id number] ####Textile Engineer: MARY SOTELO ([phone])[facility] ([facility])[address] [place] [address] [place] Calcium [Mass/Vol] 7.8 mg/dL Low 8.4-10.4 [facility] Comment on above: Performed By: #### L AB113, LAB15, [id number] ####Textile Engineer: MARY SOTELO ([phone])[facility])[address] [place] [address] [place] Chloride [Moles/Vol] 99 mmol/L Normal 98-107 [facility] Comment on above: Performed By: #### L AB113, LAB15, [id number] ####Textile Engineer: MARY SOTELO ([id number])[facility] ([facility])[address] [place] [address] CO2 [Moles/Vol] 27 mmol/L Normal 22-30 [facility] Comment on above: Performed By: #### L AB113, LAB15, [id number] ####Textile Engineer: MARY SOTELO ([phone])[facility])[address] [place] [address] Creatinine [Mass/Vol] 4.52 mg/dL High 0.52-1.[address] [facility] Comment on above: Performed By: #### L AB113, LAB15, [id number] ####Textile Engineer: MARY SOTELO ([phone])[facility] ([facility])[address] [place] [address] GLOMERULAR FILTRATION RATE ML/MIN/1.73 SQ M.PREDICTED 10.3 mL/min/1.73m*2 Low >60.0 [facility] Comment on above: Result Comment: Calc ulation based on the Chronic Kidney Disease Epidemiology Collaboration (CKD-EPI) equation refit without adjustment for race Performed By: #### L AB113, LAB15, [id number] ####Textile Engineer: MARY SOTELO ([id number])[facility] ([facility])[address] [place] [address] Glucose [Mass/Vol] 73 mg/dL Normal 70-100 [facility] Comment on above: Performed By: #### L AB113, LAB15, [id number] ####Textile Engineer: MARY SOTELO ([id number])[facility] [place] [address] [place] Potassium [Moles/Vol] 3.2 mmol/L Low 3.5-5.[address] [facility] Comment on above: Performed By: #### L AB113, LAB15, [id number] ####Textile Engineer: MARY SOTELO ([phone])[facility] [place] [address] Sodium [Moles/Vol] 133 mmol/L Low 135-145 [facility] Comment on above: Performed By: #### L AB113, LAB15, [id number] ####Textile Engineer: MARY SOTELO ([phone])[facility])[address] [place] [address] Urea nitrogen [Mass/Vol] 47 mg/dL High 7-17 [facility] Comment on above: Performed By: #### L AB113, LAB15, [id number] ####Textile Engineer: MARY SOTELO ([phone])[facility])[address] [place] [address] BLOOD GAS ARTERIALon 024 Base excess Calc (Bld) [Moles/Vol] 3.2 mmol/L High -3.0-3.0 [facility] Comment on above: Performed By: #### L [id number] ####Textile Engineer: MARY SOTELO ([phone])[facility])[address] [place] [address] CO2 [Moles/Vol] 30.8 mmol/L High 23.0-27.0 [facility] Comment on above: Performed By: #### L [id number] ####Textile Engineer: MARY SOTELO ([phone])[facility])[address] [place] [address] HCO3 (Bld) [Moles/Vol] 29.2 mmol/L High 21.0-25.0 [facility] Comment on above: Performed By: #### L [id number] ####Textile Engineer: MARY SOTELO ([phone])[facility])[address] [place] [address] Hemoglobin (Bld) [Mass/Vol] 10.2 g/dL Normal Screen only [facility] Comment on above: Performed By: #### L [id number] ####Textile Engineer: MARY SOTELO ([phone])[facility])[address] [place] [address] OXYGEN SATURATION (%) IN ARTERIAL BLOOD 96.1 % Normal 95.0-100.0 [facility] Comment on above: Performed By: #### L [id number] ####Textile Engineer: MARY SOTELO ([id number])[facility] ([facility])[address] [place] [address] PCO2 ARTERIAL 51.3 mm Hg High >35.0-<45.0 [facility] Comment on above: Performed By: #### L [id number] ####Textile Engineer: MARY SOTELO ([id number])[facility] ([facility])[address] [place] [address] PH ARTERIAL 7.373 Normal 7.350-7.450 [facility] Comment on above: Performed By: #### L [id number] ####Textile Engineer: MARY SOTELO ([id number])[facility] ([facility])[address] [place] [address] PO2 ARTERIAL 85.9 mm Hg Normal 80.0-100.0 [facility] Comment on above: Performed By: #### L [id number] ####Textile Engineer: MARY SOTELO ([id number])[facility] ([facility])[address] [place] [address] SOURCE OF OXYGEN CPAP Normal [facility] Comment on above: Result Comment: 30% Performed By: #### L [id number] ####Textile Engineer: MARY SOTELO ([phone])[facility] ([facility])[address] [place] [address] Base excess Calc (Bld) [Moles/Vol] 0.4 mmol/L Normal -3.0-3.0 [facility] Comment on above: Performed By: #### L [id number] ####Textile Engineer: MARY SOTELO ([id number])[facility] ([facility])[address] [place] [address] CO2 [Moles/Vol] 29.5 mmol/L High 23.0-27.0 [facility] Comment on above: Performed By: #### L [id number] ####Textile Engineer: MARY SOTELO ([phone])[facility] ([facility])[address] [place] [address] HCO3 (Bld) [Moles/Vol] 27.7 mmol/L High 21.0-25.0 S [facility] Comment on above: Performed By: #### L [id number] ####Textile Engineer: MARY SOTELO ([phone])[facility])[address] [place] [address] Hemoglobin (Bld) [Mass/Vol] 9.8 g/dL Normal Screen only [facility] Comment on above: Performed By: #### L [id number] ####Textile Engineer: MARY SOTELO ([phone])[facility])[address] [place] [address] OXYGEN SATURATION (%) IN ARTERIAL BLOOD 96.6 % Normal 95.0-100.0 [facility] Comment on above: Performed By: #### L [id number] ####Textile Engineer: MARY SOTELO ([phone])[facility])[address] [place] [address] PCO2 ARTERIAL 59.5 mm Hg High >35.0-<45.0 [facility] Comment on above: Performed By: #### L [id number] ####Textile Engineer: MARY SOTELO ([phone])[facility])[address] [place] [address] PH ARTERIAL 7.286 Low 7.350-7.450 [facility] Comment on above: Performed By: #### L [id number] ####Textile Engineer: MARY SOTELO ([phone])[facility])[address] [place] [address] PO2 ARTERIAL 88.7 mm Hg Normal 80.0-100.0 [facility] Comment on above: Performed By: #### L [id number] ####Textile Engineer: MARY SOTELO ([phone])[facility])[address] [place] [address] SOURCE OF OXYGEN CPAP Normal [facility] Comment on above: Result Comment: 30% Performed By: #### L [id number] ####Textile Engineer: MARY SOTELO ([id number])[facility] ([facility])[address] [place], [place] [id number] [facility] Basic metabolic 1998 panelon 08-21-2024 Anion gap [Moles/Vol] 7 mmol/L 3 - 13 mmol/L [facility] Calcium [Mass/Vol] 7.8 mg/dL Low 8.4 - 10. 4 mg/dL [facility] Chloride [Moles/Vol] 99 mmol/L 98 - 10 7 mmol/L [facility] CO2 [Moles/Vol] 27 mmol/L 22 - 30 mmol/L [facility] Creatinine [Mass/Vol] 4.52 mg/dL High 0.52 - 1.04 mg/dL [facility] GFR/1.73 sq M.predicted (S/P/Bld) [Vol rate/Area] 10.3 mL/min Low - PINF [facility] Glucose [Mass/Vol] 73 mg/dL 70 - 100 mg/dL [facility] Interpretation and review of laboratory results Abnormal [facility] Potassium [Moles/Vol] 3.2 mmol/L Low 3.5 - 5.1 mmol/L [facility] Sodium [Moles/Vol] 133 mmol/L Low 135 - 145 mmol/L [facility] Urea nitrogen [Mass/Vol] 47 mg/dL High 7 - 17 mg/dL [facility] CARECOORDon 08-21-2024 CARECOORD Normal [facility] CBC W Auto Differential pane l (Bld)on 08-21-2024 Basophils (Bld) [#/Vol] 0 10*3/uL 0.0 - 0.2 10*3/uL [facility] Basophils/100 WBC (Bld) 0.3 % 0.0 - 2.0 % [facility] Eosinophils (Bld) [#/Vol] 0.6 10*3/uL High 0.0 - 0.5 10*3/uL [facility] Eosinophils/100 WBC (Bld) 9.4 % High 0.0 - 6.0 % [facility] Erythrocyte distribution width (RBC) [Ratio] 15.9 % High 11.5 - 15.0 % [facility] Hematocrit (Bld) [Volume fraction] 30.6 % Low 35.0 - 47.0 % [facility] Hemoglobin (Bld) [Mass/Vol] 9.9 g/dL Low 11.7 - 16.0 g/dL [facility] Immature granulocytes (Bld) [#/Vol] 0 10*3/uL NINF - 0.1 10*3/uL [facility] [employer] Immature granulocytes/100 WBC (Bld) 0.2 % 0.0 - 2.0 % [facility] Interpretation and review of laboratory results Abnormal [facility] Lymphocytes (Bld) [#/Vol] 1.2 10*3/uL 1.0 - 4.3 10*3/uL [facility] Lymphocytes/100 WBC (Bld) 19.6 % 15.0 - 45.0 % [facility] MCH (RBC) [Entitic mass] 29.6 pg 26.0 - 34.0 pg [facility] MCHC (RBC) [Mass/Vol] 32.4 % 30.5 - 36.0 % [facility] MCV (RBC) [Entitic vol] 91.3 fL 77.0 - 99.0 fL [facility] Monocytes (Bld) [#/Vol] 0.5 10*3/uL 0.0 - 0.9 10*3/uL [facility] Monocytes/100 WBC (Bld) 7.6 % 5.0 - 13.0 % [facility] Neutrophils (Bld) [#/Vol] 3.9 10*3/uL 1.8 - 7.5 10*3/uL [facility] [employer] Neutrophils/100 WBC (Bld) 62.9 % 38.0 - 82.0 % [facility] Nucleated RBC/100 WBC (Bld) [Ratio] 0 % [facility] Platelet mean volume (Bld) [Entitic vol] 10.5 fL 9.0 - 12.7 fL [facility] Platelets (Bld) [#/Vol] 157 10*3/uL 140 - 440 10*3/uL [facility] RBC (Bld) [#/Vol] 3.35 10*6/uL Low 3.80 - 5.2 0 10*6/uL [facility] [employer] WBC (Bld) [#/Vol] 6.2 10*3/uL 3.6 - 10.7 10*3/uL [facility] CBC WITH AUTO DIFFERENTIALon 08-21-2024 Basophils (Bld) [#/Vol] 0.0 10*3/uL Normal 0.0-0.2 [facility] Comment on above: Performed By: #### L [id number] ####Textile Engineer: MARY SOTELO ([phone])[facility])[address] [place] [address] Basophils/100 WBC (Bld) 0.3 % Normal 0.0-2.0 [facility] Comment on above: Performed By: #### L [id number] ####Textile Engineer: MARY SOTELO ([phone])[facility])[address] [place] [address] Eosinophils (Bld) [#/Vol] 0.6 10*3/uL High 0.0-0.5 [facility] Comment on above: Performed By: #### L [id number] ####Textile Engineer: MARY SOTELO ([phone])[facility])[address] [place] [address] Eosinophils/100 WBC (Bld) 9.4 % High 0.0-6.0 [facility] Comment on above: Performed By: #### L [id number] ####Textile Engineer: MARY SOTELO ([phone])[facility])[address] [place] [address] Erythrocyte distribution width (RBC) [Ratio] 15.9 % High 11.5-15.0 [facility] Comment on above: Performed By: #### L [id number] ####Textile Engineer: MARY SOTELO ([phone])[facility])[address] [place] [address] Hematocrit (Bld) [Volume fraction] 30.6 % Low 35.0-47.0 [facility] Comment on above: Performed By: #### L [id number] ####Textile Engineer: MARY SOTELO ([phone])[facility])[address] [place] [address] Hemoglobin (Bld) [Mass/Vol] 9.9 g/dL Low 11.7-16.0 [facility] Comment on above: Performed By: #### L [id number] ####Textile Engineer: MARY SOTELO ([phone])[facility])[address] [place] [address] IMMATURE GRANS % 0.2 % Normal 0.0-2.0 [facility] Comment on above: Performed By: #### L [id number] ####Textile Engineer: MARY SOTELO ([phone])[facility])[address] [place] [address] IMMATURE GRANS ABSOLUTE 0.0 10*3/uL Normal <0.1 [facility] Comment on above: Performed By: #### L [id number] ####Textile Engineer: MARY SOTELO ([phone])[facility])[address] [place] [address] Lymphocytes (Bld) [#/Vol] 1.2 10*3/uL Normal 1.0-4.3 [facility] Comment on above: Performed By: #### L [id number] ####Textile Engineer: MARY SOTELO ([phone])[facility])[address] [place] [address] Lymphocytes/100 WBC (Bld) 19.6 % Normal 15.0-45.0 [facility] Comment on above: Performed By: #### L [id number] ####Textile Engineer: MARY SOTELO ([phone])[facility])[address] [place] [address] MCH (RBC) [Entitic mass] 29.6 pg Normal 26.0-34.0 [facility] Comment on above: Performed By: #### L [id number] ####Textile Engineer: MARY SOTELO ([phone])[facility])[address] [place] [address] MCHC 32.4 % Normal 30.5-36.0 [facility] Comment on above: Performed By: #### L [id number] ####Textile Engineer: MARY SOTELO ([id number])[facility])[address] [place] [address] MCV (RBC) [Entitic vol] 91.3 fL Normal 77.0-99.0 [facility] Comment on above: Performed By: #### L [id number] ####Textile Engineer: MARY SOTELO ([id number])[facility])[address] [place] [address] Monocytes (Bld) [#/Vol] 0.5 10*3/uL Normal 0.0-0.9 [facility] Comment on above: Performed By: #### L [id number] ####Textile Engineer: MARY SOTELO ([phone])[facility] ([facility])[address] [place] [address] Monocytes/100 WBC (Bld) 7.6 % Normal 5.0-13.0 [facility] Comment on above: Performed By: #### L [id number] ####Textile Engineer: MARY SOTELO ([phone])[facility])[address] [place] [address] NEUTROPHILS ABSOLUTE 3.9 10*3/uL Normal 1.8-7.5 [facility] Comment on above: Performed By: #### L [id number] ####Textile Engineer: MARY SOTELO ([id number])[facility] ([facility])[address] [place] [address] Neutrophils/100 WBC (Bld) 62.9 % Normal 38.0-82.0 [facility] Comment on above: Performed By: #### L [id number] ####Textile Engineer: MARY SOTELO ([phone])[facility])[address] [place] [address] NRBC 0.0 /100 WBCs Normal 0.0-2.0 [facility] Comment on above: Performed By: #### L [id number] ####Textile Engineer: MARY SOTELO ([phone])[facility])[address] [place] [address] Platelet mean volume (Bld) [Entitic vol] 10.5 fL Normal 9.0-12.7 [facility] Comment on above: Performed By: #### L [id number] ####Textile Engineer: MARY SOTELO ([id number])[facility] ([facility])[address] [place] [address] Platelets (Bld) [#/Vol] 157 10*3/uL Normal 140-440 [facility] Comment on above: Performed By: #### L [id number] ####Textile Engineer: MARY SOTELO ([id number])[facility] ([facility])[address] [place] [address] RBC (Bld) [#/Vol] 3.35 10*6/uL Low 3.80-5.20 [facility] Comment on above: Performed By: #### L [id number] ####Textile Engineer: MARY SOTELO ([id number])[facility] ([facility])[address] [place] [address] WBC (Bld) [#/Vol] 6.2 10*3/uL Normal 3.6-10.7 [facility] Comment on above: Performed By: #### L [id number] ####Textile Engineer: MARY SOTELO ([phone])[facility] ([facility])[address] [place] [address] COMPLETE URINALYSISon 2023 BACTERIA (#/HPF) IN URINE Many Abnormal Negative [facility] Comment on above: Performed By: #### L [id number] ####Textile Engineer: MARY SOTELO ([phone])[facility])[address] [place] [address] BILIRUBIN, TOTAL PRESENCE IN URINE Negative Normal Negative [facility] Comment on above: Performed By: #### L [id number] ####Textile Engineer: MARY SOTELO ([id number])[facility] ([facility])[address] [place] [address] Clarity (U) Extra Turbid Abnormal Clear [facility] Comment on above: Performed By: #### L [id number] ####Textile Engineer: MARY SOTELO ([phone])[facility] ([facility])[address] [place] [address] Color (U) Yellow Normal Lt. Yellow [facility] Comment on above: Performed By: #### L [id number] ####Textile Engineer: MARY SOTELO ([phone])[facility])[address] [place] [address] GLUCOSE (MG/DL) IN URINE Normal Normal Normal (<70) [facility] Comment on above: Performed By: #### L [id number] ####Textile Engineer: MARY SOTELO ([id number])[facility] ([facility])[address] [place] [address] HEMOGLOBIN PRESENCE IN URINE 1.0 mg/dL Abnormal Negative [facility] Comment on above: Performed By: #### L [id number] ####Textile Engineer: MARY SOTELO ([phone])[facility])[address] [place] [address] HYALINE CASTS (#/LPF) IN URINE SEDIMENT BY MICROSCOPY Negative Normal Negative [facility] Comment on above: Performed By: #### L [id number] ####Textile Engineer: MARY SOTELO ([id number])[facility] ([facility])[address] [place] [address] Ketones Ql (U) Negative Normal Negative [facility] Comment on above: Performed By: #### L [id number] ####Textile Engineer: MARY SOTELO ([phone])[facility] ([facility])[address] [place] [address] LEUKOCYTE ESTERASE PRESENCE IN URINE BY TEST STRIP 500 Bere/uL Abnormal Negative [facility] Comment on above: Performed By: #### L [id number] ####Textile Engineer: MARY SOTELO ([phone])[facility] ([facility])[address] [place] [address] NITRITE PRESENCE IN URINE Negative Normal Negative [facility] Comment on above: Performed By: #### L [id number] ####Textile Engineer: MARY SOTELO ([id number])[facility] ([facility])[address] [place] [address] pH (U) 6.0 [pH] Normal 5.0-8.0 [facility] Comment on above: Performed By: #### L [id number] ####Textile Engineer: MARY SOTELO ([phone])[facility])[address] [place] [address] Protein (U) [Mass/Vol] 100 mg/dL Abnormal Negative [facility] Comment on above: Performed By: #### L [id number] ####Textile Engineer: MARY SOTELO ([id number])[facility] ([facility])[address] [place] [address] RBC (#/HPF) IN URINE SEDIMENT >100 Abnormal 0-2 [facility] Comment on above: Performed By: #### L [id number] ####Textile Engineer: MARY SOTELO ([phone])[facility])[address] [place] [address] Specific gravity (U) [Rel density] 1.009 Normal 1.005-1.030 [facility] Comment on above: Performed By: #### L [id number] ####Textile Engineer: MARY SOTELO ([phone])[facility])[address] [place] [address] SQUAMOUS EPITHELIAL CELLS (#/HPF) IN URINE SEDIMENT Negative Normal 3-5 [facility] Comment on above: Performed By: #### L [id number] ####Textile Engineer: MARY SOTELO ([phone])[facility])[address] [place] [address] UROBILINOGEN (MG/DL) IN URINE Normal Normal Normal (0-1) [facility] Comment on above: Performed By: #### L [id number] ####Textile Engineer: MARY SOTELO ([phone])[facility])[address] [place] [address] WBC (LEUKOCYTE) (#/HPF) IN URINE SEDIMENT >100 Abnormal 0-5 [facility] Comment on above: Performed By: #### L [id number] ####Textile Engineer: MARY SOTELO ([phone])[facility] [place] [address] [place] WBC (LEUKOCYTE) CLUMPS (#/HPF) IN URINE SEDIMENT Many Abnormal Negative [facility] Comment on above: Performed By: #### L [id number] ####Textile Engineer: MARY SOTELO ([id number])[facility] ([facility] [place] [address] [place] YEAST (#/HPF) IN URINE Moderate Abnormal Negative [facility] Comment on above: Performed By: #### L [id number] ####Textile Engineer: MARY SOTELO ([id number])[facility])[address] [place] [address] [place] GLUCOSE, RANDOMon 08-21-2024 Glucose [Mass/Vol] 27 mg/dL Critically low 70-100 [facility] Comment on above: Performed By: #### L [id number] ####Textile Engineer: MARY SOTELO ([phone])[facility])[address] [place] [address] Glucose (Bld) [Mass/Vol]Orde red By: Madison Donaldson on 08-21-2024 Glucose [Mass/Vol] 27 mg/dL Critically low 70 - 10 0 mg/dL [facility] Interpretation and review of laboratory results Abnormal [facility] Laboratory - Chemistry and C hemistry - challengeon 08-21-2024 Glucose [Mass/Vol] 228 mg/dL High 70 - 100 mg/dL [facility] Glucose [Mass/Vol] 123 mg/dL High 70 - 100 mg/dL [facility] Glucose [Mass/Vol] 110 mg/dL High 70 - 100 mg/dL [facility] Base excess Calc (Bld) [Moles/Vol] 3.2 mmol/L High -3.0 - 3.0 mmol/L [facility] CO2 (Bld) [Partial pressure] 51.3 mm[Hg] High - PINF [facility] CO2 [Moles/Vol] 30.8 mmol/L High 23.0 - 27.0 mmol/L [facility] HCO3 (Bld) [Moles/Vol] 29.2 mmol/L High 21.0 - 25.0 mmol/L [facility] Oxygen (Bld) [Partial pressure] 85.9 mm[Hg] [facility] pH (Bld) 7.373 [pH] 7.350 - 7.450 [facility] Glucose [Mass/Vol] 103 mg/dL High 70 - 100 mg/dL [facility] Glucose [Mass/Vol] 106 mg/dL High 70 - 100 mg/dL [facility] Glucose [Mass/Vol] 128 mg/dL High 70 - 100 mg/dL [facility] Glucose [Mass/Vol] 166 mg/dL High 70 - 100 mg/dL [facility] Glucose [Mass/Vol] mg/dL Low 70 - 100 mg/dL [facility] Base excess Calc (Bld) [Moles/Vol] 0.4 mmol/L -3.0 - 3.0 mmol/L [facility] CO2 (Bld) [Partial pressure] 59.5 mm[Hg] High - PINF [facility] CO2 [Moles/Vol] 29.5 mmol/L High 23.0 - 27.0 mmol/L [facility] HCO3 (Bld) [Moles/Vol] 27.7 mmol/L High 21.0 - 25.0 mmol/L [facility] Oxygen (Bld) [Partial pressure] 88.7 mm[Hg] [facility] pH (Bld) 7.286 [pH] Low 7.350 - 7.450 [facility] Magnesium [Mass/Vol] 2.1 mg/dL 1.6 - 2 .3 mg/dL [facility] Laboratory - Hematology and Cell countson 08-21-2024 Hemoglobin (Bld) [Mass/Vol] 10.2 g/dL Screen only [facility] Hemoglobin (Bld) [Mass/Vol] 9.8 g/dL Screen only [facility] MAGNESIUMon 08-21-2024 Magnesium [Mass/Vol] 2.1 mg/dL Normal 1.6-2.3 [facility] Comment on above: Performed By: #### L [id number], [id number], [id number] ####Textile Engineer: MARY SOTELO ([id number])[facility] ([address] No Panel Informationon 08-21 Interpretation and review of laboratory results Abnormal [facility] Interpretation and review of laboratory results Abnormal [facility] Interpretation and review of laboratory results Abnormal [facility] Interpretation and review of laboratory results Abnormal [facility] Source Of Oxygen CPAP [facility] Interpretation and review of laboratory results Abnormal [facility] Interpretation and review of laboratory results Abnormal [facility] Interpretation and review of laboratory results Abnormal [facility] Interpretation and review of laboratory results Abnormal [facility] Interpretation and review of laboratory results Abnormal [facility] Interpretation and review of laboratory results Abnormal [facility] Source Of Oxygen CPAP [facility] Interpretation and review of laboratory results Normal [facility] Nursing Noteon 08-21-2024 Nursing Note Normal [facility] PHOSPHORUSon 08-21-2024 Phosphate [Mass/Vol] 3.5 mg/dL Normal 2.5-4.5 [facility] Comment on above: Performed By: #### L AB113, [id number], [id number] ####Textile Engineer: MARY SOTELO ([id number])[facility])[address] [place] [address] [place] Phosphate [Moles/Vol]on 08-03 Phosphate [Mass/Vol] 3.5 mg/dL 2.5 - 4 .5 mg/dL [facility] Progress Noteon 08-21-[address] [facility] Progress Note Normal [facility] Progress Note Normal [facility] URINE CULTUREon 08-21-2024 Bacteria identified Cx Nom (U) Normal [facility] Comment on above: Performed By: #### L [id number] ####Textile Engineer: MARY SOTELO ([id number])[facility] ([facility])[address] [place] [address] [place] Urinalysis complete panel (U )on 08-21-2024 Bacteria LM.HPF (Urine sed) [#/Area] Many Abnormal Negative /HPF [facility] Bilirubin Ql (U) Negative Negative mg/dL [facility] Clarity (U) Extra Turbid Abnormal Clear [facility] Color (U) Yellow Lt. Yellow [facility] Epithelial cells.squamous LM.HPF (Urine sed) [#/Area] [facility]U) Normal Normal (<70) mg/dL [facility] Hemoglobin Ql (U) 1.0 mg/dL Abnormal Negative [facility] Hyaline casts Auto (Urine sed) [#/Area] Negative Negative /LPF [facility] Interpretation and review of laboratory results Abnormal [facility] Ketones (U) [Mass/Vol] Negative Negat pawan mg/dL [facility] Leukocyte clumps LM.HPF (Urine sed) [#/Area] Many Abnormal Negative /HPF [facility] Leukocyte esterase Test strip Ql (U) 500 Abnormal Negative Bere/uL [facility] Nitrite Ql (U) Negative Negative [facility] th pH (U) 6.0 [pH] 5.0 - 8.0 pH [facility] Protein (U) [Mass/Vol] 100 mg/dL Abnormal Negative [facility] RBC LM.HPF (Urine sed) [#/Area] /[HPF] Abnormal [facility] Specific gravity (U) [Rel density] 1.009 1.005 - 1.030 [facility] Urobilinogen (U) [Mass/Vol] Normal Normal (0-1) mg/dL [facility] WBC LM.HPF (Urine sed) [#/Area] /[HPF] Abnormal [facility] Yeast.budding LM.HPF (Urine sed) [#/Area] Moderate Abnormal Negative /HPF [facility] BASIC METABOLIC PANELon 08-03 Anion gap [Moles/Vol] 8 mmol/L Normal 3-[address] [facility] Comment on above: Performed By: #### L AB15, [id number], [id number] ####Textile Engineer: MARY SOTELO ([id number])[facility] ([facility])[address] [place] [address] Calcium [Mass/Vol] 7.8 mg/dL Low 8.4-10.4 [facility] Comment on above: Performed By: #### L AB15, [id number], [id number] ####Textile Engineer: MARY SOTELO ([id number])[facility] ([facility])[address] [place] [address] Chloride [Moles/Vol] 97 mmol/L Low 98-107 [facility] Comment on above: Performed By: #### Dora AB15, [id number], [id number] ####Textile Engineer: MARY SOTELO ([id number])[facility])[address] [place] [address] CO2 [Moles/Vol] 24 mmol/L Normal 22-30 [facility] Comment on above: Performed By: #### Dora OTT, [id number], [id number] ####Textile Engineer: MARY SOTELO ([phone])[facility])[address] [place] [address] Creatinine [Mass/Vol] 3.58 mg/dL High 0.52-1.[address] [facility] Comment on above: Performed By: #### Dora OTT, [id number], [id number] ####Textile Engineer: MARY SOTELO ([id number])[facility])[address] [place] [address] GLOMERULAR FILTRATION RATE ML/MIN/1.73 SQ M.PREDICTED 13.6 mL/min/1.73m*2 Low >60.0 [facility] Comment on above: Result Comment: Calc ulation based on the Chronic Kidney Disease Epidemiology Collaboration (CKD-EPI) equation refit without adjustment for race Performed By: #### Dora OTT, [id number], [id number] ####Textile Engineer: MARY SOTELO ([id number])[facility] ([facility])[address] [place] [address] Glucose [Mass/Vol] 150 mg/dL High 70-100 [facility] Comment on above: Performed By: #### Dora PARISH15, [id number], [id number] ####Textile Engineer: MARY SOTELO ([id number])[facility])[address] [place] [address] [place] Potassium [Moles/Vol] 4.0 mmol/L Normal 3.5-5.[address] [facility] Comment on above: Performed By: #### Dora AB15, [id number], [id number] ####Textile Engineer: MARY SOTELO ([id number])[facility])[address] [place] [address] [place] Sodium [Moles/Vol] 129 mmol/L Low 135-145 [facility] Comment on above: Performed By: #### L AB15, [id number], [id number] ####Textile Engineer: MARY SOTELO ([phone])[facility] ([facility])[address] [place] [address] Urea nitrogen [Mass/Vol] 41 mg/dL High 7-17 [facility] Comment on above: Performed By: #### L AB15, [id number], [id number] ####Textile Engineer: MARY SOTELO ([id number])[facility] ([facility])[address] [place] [address] BLOOD GAS ARTERIALon 08-20- 024 Base excess Calc (Bld) [Moles/Vol] -0.7000 mmol/L Normal -3.0-3.0 [facility] Comment on above: Performed By: #### L AB76 ####Textile Engineer: MARY SOTELO ([id number])[facility] ([facility])[address] [place] [address] CO2 [Moles/Vol] 28.6 mmol/L High 23.0-27.0 [facility] Comment on above: Performed By: #### L AB76 ####Textile Engineer: MARY SOTELO ([id number])[facility] ([facility])[address] [place] [address] HCO3 (Bld) [Moles/Vol] 26.8 mmol/L High 21.0-25.0 [facility] Comment on above: Performed By: #### L AB76 ####Textile Engineer: MARY SOTELO ([id number])[facility] ([facility])[address] [place] [address] Hemoglobin (Bld) [Mass/Vol] 10.3 g/dL Normal Screen only [facility] Comment on above: Performed By: #### L AB76 ####Textile Engineer: MARY SOTELO ([id number])[facility] ([facility])[address] [place] [address] OXYGEN SATURATION (%) IN ARTERIAL BLOOD 98.1 % Normal 95.0-100.0 [facility] Comment on above: Performed By: #### L AB76 ####Textile Engineer: MARY SOTELO ([id number])[facility] ([facility])[address] [place] [address] PCO2 ARTERIAL 59.2 mm Hg High >35.0-<45.0 [facility] Comment on above: Performed By: #### L AB76 ####Textile Engineer: MARY SOTELO ([id number])[facility] ([facility])[address] [place] [address] PH ARTERIAL 7.274 Low 7.350-7.450 [facility] Comment on above: Performed By: #### L AB76 ####Textile Engineer: MARY SOTELO ([phone])[facility])[address] [place] [address] PO2 ARTERIAL 113.3 mm Hg High 80.0-[facility].0 [facility] Comment on above: Performed By: #### L AB76 ####Textile Engineer: MARY SOTELO ([id number])[facility])[address] [place] [address] SOURCE OF OXYGEN 40% Oxygen Normal [facility] Comment on above: Performed By: #### L AB76 ####Textile Engineer: MARY SOTELO ([id number])[facility] ([facility])[address] [place] [address] Base excess Calc (Bld) [Moles/Vol] 0.2 mmol/L Normal -3.0-3.0 [facility] Comment on above: Performed By: #### L AB76 ####Textile Engineer: MARY SOTELO ([id number])[facility] ([facility])[address] [place] [address] CO2 [Moles/Vol] 30.7 mmol/L High 23.0-27.0 [facility] Comment on above: Performed By: #### L AB76 ####Textile Engineer: MARY SOTELO ([id number])[facility] [place] [address] HCO3 (Bld) [Moles/Vol] 28.6 mmol/L High 21.0-25.0 [facility] Comment on above: Performed By: #### L AB76 ####Textile Engineer: MARY STOELO ([phone])[facility] ([facility])[address] [place] [address] Hemoglobin (Bld) [Mass/Vol] 10.5 g/dL Normal Screen only [facility] Comment on above: Performed By: #### L AB76 ####Textile Engineer: MARY SOTELO ([id number])[facility] ([facility])[address] [place] [address] OXYGEN SATURATION (%) IN ARTERIAL BLOOD 96.9 % Normal 95.0-100.0 [facility] Comment on above: Performed By: #### L [id number] ####Textile Engineer: MARY SOTELO ([phone])[facility] ([facility])[address] [place] [address] PCO2 ARTERIAL 67.9 mm Hg High >35.0-<45.0 [facility] Comment on above: Performed By: #### L [id number] ####Textile Engineer: MARY SOTELO ([phone])[facility] ([facility])[address] [place] [address] PH ARTERIAL 7.242 Low 7.350-7.450 [facility] Comment on above: Performed By: #### L [id number] ####Textile Engineer: MARY SOTELO ([phone])[facility] ([facility])[address] [place] [address] PO2 ARTERIAL 101.2 mm Hg High 80.0-100.0 [facility] Comment on above: Performed By: #### L [id number] ####Textile Engineer: MARY SOTELO ([id number])[facility] ([facility])[address] [place] [address] SOURCE OF OXYGEN 40% Oxygen Normal [facility] Comment on above: Performed By: #### L [id number] ####Textile Engineer: MARY SOTELO ([phone])[facility] ([facility])[address] [place] [address] Base excess Calc (Bld) [Moles/Vol] 0.5 mmol/L Normal -3.0-3.0 [facility] Comment on above: Performed By: #### L [id number] ####Textile Engineer: MARY SOTELO ([id number])[facility] ([facility])[address] [place] [address] [place] CO2 [Moles/Vol] 31.0 mmol/L High 23.0-27.0 [facility] Comment on above: Performed By: #### L [id number] ####Textile Engineer: MARY SOTELO ([phone])[facility] ([facility])[address] [place] [address] HCO3 (Bld) [Moles/Vol] 28.9 mmol/L High 21.0-25.0 [facility] Comment on above: Performed By: #### L [id number] ####Textile Engineer: MARY SOTELO ([id number])[facility] ([facility])[address] [place] [address] Hemoglobin (Bld) [Mass/Vol] 10.4 g/dL Normal Screen only [facility] Comment on above: Performed By: #### L [id number] ####Textile Engineer: MARY SOTELO ([phone])[facility] ([facility])[address] [place] [address] OXYGEN SATURATION (%) IN ARTERIAL BLOOD 68.2 % Low 95.0-100.0 [facility] Comment on above: Performed By: #### L [id number] ####Textile Engineer: MARY SOTELO ([id number])[facility] ([facility])[address] [place] [address] PCO2 ARTERIAL 68.4 mm Hg High >35.0-<45.0 [facility] Comment on above: Performed By: #### L [id number] ####Textile Engineer: MARY SOTELO ([phone])[facility] ([facility])[address] [place] [address] PH ARTERIAL 7.244 Low 7.350-7.450 [facility] Comment on above: Performed By: #### L [id number] ####Textile Engineer: MARY SOTELO ([id number])[facility] ([facility])[address] [place] [address] PO2 ARTERIAL 36.2 mm Hg Critically low 80.0-100.0 [facility] Comment on above: Performed By: #### L [id number] ####Textile Engineer: MARY SOTELO ([id number])[facility] ([facility])[address] [place] [address] SOURCE OF OXYGEN Bi-PAP Normal [facility] Comment on above: Result Comment: 10/07 , 3 L Performed By: #### L [id number] ####Textile Engineer: MARY SOTELO ([id number])[facility] ([facility])[address] [place] [address] Base excess Calc (Bld) [Moles/Vol] -1.0000 mmol/L Normal -3.0-3.0 [facility] Comment on above: Performed By: #### L [id number] ####Textile Engineer: MARY SOTELO ([phone])[facility] ([facility])[address] [place] [address] CO2 [Moles/Vol] 30.1 mmol/L High 23.0-27.0 [facility] Comment on above: Performed By: #### L [id number] ####Textile Engineer: MARY SOTELO ([phone])[facility] ([facility])[address] [place] [address] [place] HCO3 (Bld) [Moles/Vol] 27.9 mmol/L High 21.0-25.0 [facility] Comment on above: Performed By: #### L [id number] ####Textile Engineer: MARY SOTELO ([phone])[facility])[address] [place] [address] [place] Hemoglobin (Bld) [Mass/Vol] 10.1 g/dL Normal Screen only [facility] Comment on above: Performed By: #### L [id number] ####Textile Engineer: MARY SOTELO ([id number])[facility] ([facility])[address] [place] [address] OXYGEN SATURATION (%) IN ARTERIAL BLOOD 92.1 % Low 95.0-100.0 [facility] Comment on above: Performed By: #### L [id number] ####Textile Engineer: MARY SOTELO ([phone])[facility])[address] [place] [address] PCO2 ARTERIAL 71.5 mm Hg High >35.0-<45.0 [facility] Comment on above: Performed By: #### L [id number] ####Textile Engineer: MARY SOTELO ([id number])[facility] ([facility])[address] [place] [address] PH ARTERIAL 7.209 Low 7.350-7.450 [facility] Comment on above: Performed By: #### L [id number] ####Textile Engineer: MARY SOTELO ([phone])[facility] [place] [address] PO2 ARTERIAL 63.4 mm Hg Low 80.0-100.0 [facility] Comment on above: Performed By: #### L [id number] ####Textile Engineer: MARY SOTELO ([id number])[facility] ([facility])[address] [place] [address] SOURCE OF OXYGEN Nasal cannula Normal [facility] Comment on above: Result Comment: 3L Performed By: #### L [id number] ####Textile Engineer: MARY SOTELO ([id number])[facility] ([facility])[address] [place] [address] Basic metabolic 1998 panelon 08-20-2024 Anion gap [Moles/Vol] 8 mmol/L 3 - 13 mmol/L [facility] Calcium [Mass/Vol] 7.8 mg/dL Low 8.4 - 10. 4 mg/dL [facility] Chloride [Moles/Vol] 97 mmol/L Low 98 - 10 7 mmol/L [facility] CO2 [Moles/Vol] 24 mmol/L 22 - 30 mmol/L [facility] Creatinine [Mass/Vol] 3.58 mg/dL High 0.52 - 1.04 mg/dL [facility] GFR/1.73 sq M.predicted (S/P/Bld) [Vol rate/Area] 13.6 mL/min Low - PINF [facility] Glucose [Mass/Vol] 150 mg/dL High 70 - 100 mg/dL [facility] Interpretation and review of laboratory results Abnormal [facility] Potassium [Moles/Vol] 4 mmol/L 3.5 - 5.1 mmol/L [facility] Sodium [Moles/Vol] 129 mmol/L Low 135 - 145 mmol/L [facility] Urea nitrogen [Mass/Vol] 41 mg/dL High 7 - 17 mg/dL [facility] CALCIUM, IONIZEDon CALCIUM IONIZED 4.30 mg/dL Normal 4.30-5.20 [facility] Comment on above: Performed By: #### L [id number] ####Textile Engineer: MARY SOTELO ([id number])[facility] ([facility])[address] [place] [address] PH, IONIZED CALCIUM 7.25 Low 7.31-7.46 [facility] Comment on above: Performed By: #### L [id number] ####Textile Engineer: MARY SOTELO ([id number])[facility] ([facility])[address] [place] [address] CARECOORDon 08-20-2024 CARECOORD Normal [facility] CBC W Auto Differential pane l (Bld)on 08-20-2024 Basophils (Bld) [#/Vol] 0 10*3/uL 0.0 - 0.2 10*3/uL [facility] Basophils/100 WBC (Bld) 0 % 0.0 - 2.0 % [facility] Eosinophils (Bld) [#/Vol] 0.1 10*3/uL 0.0 - 0.5 10*3/uL [facility] Eosinophils/100 WBC (Bld) 1.4 % 0.0 - 6.0 % [facility] Erythrocyte distribution width (RBC) [Ratio] 15.5 % High 11.5 - 15.0 % [facility] Hematocrit (Bld) [Volume fraction] 30.5 % Low 35.0 - 47.0 % [facility] Hemoglobin (Bld) [Mass/Vol] 9.9 g/dL Low 11.7 - 16.0 g/dL [facility] Immature granulocytes (Bld) [#/Vol] 0 10*3/uL NINF - 0.1 10*3/uL [facility] Immature granulocytes/100 WBC (Bld) 0.5 % 0.0 - 2.0 % [facility] Interpretation and review of laboratory results Abnormal [facility] Lymphocytes (Bld) [#/Vol] 0.6 10*3/uL Low 1.0 - 4.3 10*3/uL [facility] Lymphocytes/100 WBC (Bld) 10.8 % Low 15.0 - 45.0 % [facility] MCH (RBC) [Entitic mass] 29.5 pg 26.0 - 34.0 pg [facility] MCHC (RBC) [Mass/Vol] 32.5 % 30.5 - 36.0 % [facility] MCV (RBC) [Entitic vol] 90.8 fL 77.0 - 99.0 fL [facility] Monocytes (Bld) [#/Vol] 0.3 10*3/uL 0.0 - 0.9 10*3/uL [facility] Monocytes/100 WBC (Bld) 4.5 % Low 5.0 - 13.0 % [facility] Neutrophils (Bld) [#/Vol] 4.8 10*3/uL 1.8 - 7.5 10*3/uL [facility] Neutrophils/100 WBC (Bld) 82.8 % High 38.0 - 82.0 % [facility] Nucleated RBC/100 WBC (Bld) [Ratio] 0 % [facility] [employer] Platelet mean volume (Bld) [Entitic vol] 10.3 fL 9.0 - 12.7 fL [facility] Platelets (Bld) [#/Vol] 145 10*3/uL 140 - 440 10*3/uL [facility] RBC (Bld) [#/Vol] 3.36 10*6/uL Low 3.80 - 5.2 0 10*6/uL [facility] WBC (Bld) [#/Vol] 5.8 10*3/uL 3.6 - 10.7 10*3/uL [facility] CBC WITH AUTO DIFFERENTIALon 08-20-2024 Basophils (Bld) [#/Vol] 0.0 10*3/uL Normal 0.0-0.2 [facility] Comment on above: Performed By: #### L [id number] ####Textile Engineer: MARY SOTELO ([phone])[facility] ([facility])[address] [place] [address] Basophils/100 WBC (Bld) 0.0 % Normal 0.0-2.0 [facility] Comment on above: Performed By: #### L [id number] ####Textile Engineer: MARY SOTELO ([phone])[facility])[address] [place] [address] [place] Eosinophils (Bld) [#/Vol] 0.1 10*3/uL Normal 0.0-0.5 [facility] Comment on above: Performed By: #### L [id number] ####Textile Engineer: MARY SOTELO ([id number])[facility] ([facility])[address] [place] [address] Eosinophils/100 WBC (Bld) 1.4 % Normal 0.0-6.0 [facility] Comment on above: Performed By: #### L [id number] ####Textile Engineer: MARY SOTELO ([phone])[facility])[address] [place] [address] Erythrocyte distribution width (RBC) [Ratio] 15.5 % High 11.5-15.0 [facility] Comment on above: Performed By: #### L [id number] ####Textile Engineer: MARY SOTELO ([id number])[facility] ([facility])[address] [place] [address] Hematocrit (Bld) [Volume fraction] 30.5 % Low 35.0-47.0 [facility] Comment on above: Performed By: #### L [id number] ####Textile Engineer: MARY SOTELO ([phone])[facility])[address] [place] [address] [place] Hemoglobin (Bld) [Mass/Vol] 9.9 g/dL Low 11.7-16.0 [facility] Comment on above: Performed By: #### L [id number] ####Textile Engineer: MARY SOTELO ([id number])[facility])[address] [place] [address] IMMATURE GRANS % 0.5 % Normal 0.0-2.0 [facility] Comment on above: Performed By: #### L [id number] ####Textile Engineer: MARY SOTELO ([id number])[facility])[address] [place] [address] IMMATURE GRANS ABSOLUTE 0.0 10*3/uL Normal <0.1 [facility] Comment on above: Performed By: #### L [id number] ####Textile Engineer: MARY SOTELO ([id number])[facility])[address] [place] [address] Lymphocytes (Bld) [#/Vol] 0.6 10*3/uL Low 1.0-4.3 [facility] Comment on above: Performed By: #### L [id number] ####Textile Engineer: MARY SOTELO ([id number])[facility])[address] [place] [address] Lymphocytes/100 WBC (Bld) 10.8 % Low 15.0-45.0 [facility] Comment on above: Performed By: #### L [id number] ####Textile Engineer: MARY SOTELO ([id number])[facility])[address] [place] [address] MCH (RBC) [Entitic mass] 29.5 pg Normal 26.0-34.0 [facility] Comment on above: Performed By: #### L [id number] ####Textile Engineer: MARY SOTELO ([id number])[facility])[address] [place] [address] MCHC 32.5 % Normal 30.5-36.0 [facility] Comment on above: Performed By: #### L [id number] ####Textile Engineer: MARY SOTELO ([id number])[facility] ([facility])[address] [place] [address] MCV (RBC) [Entitic vol] 90.8 fL Normal 77.0-99.0 [facility] Comment on above: Performed By: #### L [id number] ####Textile Engineer: MARY SOTELO ([phone])[facility] ([facility])[address] [place] [address] Monocytes (Bld) [#/Vol] 0.3 10*3/uL Normal 0.0-0.9 [facility] Comment on above: Performed By: #### L [id number] ####Textile Engineer: MARY SOTELO ([id number])[facility])[address] [place] [address] Monocytes/100 WBC (Bld) 4.5 % Low 5.0-13.0 [facility] Comment on above: Performed By: #### L [id number] ####Textile Engineer: MARY SOTELO ([id number])[facility] ([facility])[address] [place] [address] NEUTROPHILS ABSOLUTE 4.8 10*3/uL Normal 1.8-7.5 [facility] Comment on above: Performed By: #### L [id number] ####Textile Engineer: MARY SOTELO ([phone])[facility])[address] [place] [address] Neutrophils/100 WBC (Bld) 82.8 % High 38.0-82.0 [facility] Comment on above: Performed By: #### L [id number] ####Textile Engineer: MARY SOTELO ([id number])[facility])[address] [place] [address] NRBC 0.0 /100 WBCs Normal 0.0-2.0 [facility] Comment on above: Performed By: #### L [id number] ####Textile Engineer: MARY SOTELO ([phone])[facility] [place] [address] Platelet mean volume (Bld) [Entitic vol] 10.3 fL Normal 9.0-12.7 [facility] Comment on above: Performed By: #### L [id number] ####Textile Engineer: MARY SOTELO ([phone])[facility])[address] [place] [address] Platelets (Bld) [#/Vol] 145 10*3/uL Normal 140-440 [facility] Comment on above: Performed By: #### L [id number] ####Textile Engineer: MARY SOTELO ([phone])[facility])[address] [place] [address] RBC (Bld) [#/Vol] 3.36 10*6/uL Low 3.80-5.20 [facility] Comment on above: Performed By: #### L [id number] ####Textile Engineer: MARY SOTELO ([id number])[facility] ([facility])[address] [place] [address] WBC (Bld) [#/Vol] 5.8 10*3/uL Normal 3.6-10.7 [facility] Comment on above: Performed By: #### L [id number] ####Textile Engineer: MARY SOTELO ([phone])[facility])[address] [place] [address] Calcium.ionized [Moles/Vol]O rdered By: Fredy Friend on 08-20-2024 Calcium.ionized (Bld) [Moles/Vol] 4.3 mg/dL 4.30 - 5.20 mg/dL [facility] Interpretation and review of laboratory results Abnormal [facility] PH, IONIZED CALCIUM 7.25 Low 7.31 - 7.46 [facility] Consulton 08-20-2024 Consult Normal [facility] Laboratory - Chemistry and C hemistry - challengeon 08-20-2024 Base excess Calc (Bld) [Moles/Vol] -0.7000 mmol/L -3.0 - 3.0 mmol/L [facility] CO2 (Bld) [Partial pressure] 59.2 mm[Hg] High - PINF [facility] CO2 [Moles/Vol] 28.6 mmol/L High 23.0 - 27.0 mmol/L [facility] HCO3 (Bld) [Moles/Vol] 26.8 mmol/L High 21.0 - 25.0 mmol/L [facility] Oxygen (Bld) [Partial pressure] 113.3 mm[Hg] High [facility] pH (Bld) 7.274 [pH] Low 7.350 - 7.450 [facility] Glucose [Mass/Vol] 124 mg/dL High 70 - 100 mg/dL [facility] Base excess Calc (Bld) [Moles/Vol] 0.2 mmol/L -3.0 - 3.0 mmol/L [facility] CO2 (Bld) [Partial pressure] 67.9 mm[Hg] High - PINF [facility] CO2 [Moles/Vol] 30.7 mmol/L High 23.0 - 27.0 mmol/L [facility] HCO3 (Bld) [Moles/Vol] 28.6 mmol/L High 21.0 - 25.0 mmol/L [facility] Oxygen (Bld) [Partial pressure] 101.2 mm[Hg] High [facility] pH (Bld) 7.242 [pH] Low 7.350 - 7.450 [facility] Base excess Calc (Bld) [Moles/Vol] 0.5 mmol/L -3.0 - 3.0 mmol/L [facility] CO2 (Bld) [Partial pressure] 68.4 mm[Hg] High - PINF [facility] CO2 [Moles/Vol] 31 mmol/L High 23.0 - 27.0 mmol/L [facility] HCO3 (Bld) [Moles/Vol] 28.9 mmol/L High 21.0 - 25.0 mmol/L [facility] Oxygen (Bld) [Partial pressure] 36.2 mm[Hg] Critically low [facility] pH (Bld) 7.244 [pH] Low 7.350 - 7.450 [facility] Glucose [Mass/Vol] 185 mg/dL High 70 - 100 mg/dL [facility] Glucose [Mass/Vol] 158 mg/dL High 70 - 100 mg/dL [facility] Magnesium [Mass/Vol] 2 mg/dL 1.6 - 2 .3 mg/dL [facility] Laboratory - Chemistry and C hemistry - challengeOrdered By: Audrey Blanchard on 08-20-2024 Base excess Calc (Bld) [Moles/Vol] -1 mmol/L -3.0 - 3.0 mmol/L [facility] CO2 (Bld) [Partial pressure] 71.5 mm[Hg] High - PINF [facility] CO2 [Moles/Vol] 30.1 mmol/L High 23.0 - 27.0 mmol/L [facility] HCO3 (Bld) [Moles/Vol] 27.9 mmol/L High 21.0 - 25.0 mmol/L [facility] Oxygen (Bld) [Partial pressure] 63.4 mm[Hg] Low [facility] pH (Bld) 7.209 [pH] Low 7.350 - 7.450 [facility] Laboratory - Hematology and Cell countson 08-20-2024 Hemoglobin (Bld) [Mass/Vol] 10.3 g/dL Screen only [facility] Hemoglobin (Bld) [Mass/Vol] 10.5 g/dL Screen only [facility] Hemoglobin (Bld) [Mass/Vol] 10.4 g/dL Screen only [facility] Laboratory - Hematology and Cell countsOrdered By: Audrey Blanchard on 08-20-2024 Hemoglobin (Bld) [Mass/Vol] 10.1 g/dL Screen only [facility] MAGNESIUMon 08-20-2024 Magnesium [Mass/Vol] 2.0 mg/dL Normal 1.6-2.3 [facility] Comment on above: Performed By: #### L [id number], [id number], [id number] ####Textile Engineer: MARY SOTELO ([phone])[facility] ([address] No Panel Informationon 08-20 Interpretation and review of laboratory results Abnormal [facility] Source Of Oxygen 40% Oxygen [facility] Interpretation and review of laboratory results Abnormal [facility] Health [facility] Interpretation and review of laboratory results Abnormal [facility] Source Of Oxygen 40% Oxygen [facility] Interpretation and review of laboratory results Abnormal [facility] Source Of Oxygen Bi-PAP [facility] Interpretation and review of laboratory results Abnormal [facility] Interpretation and review of laboratory results Abnormal [facility] Interpretation and review of laboratory results Normal [facility] No Panel InformationOrdered By: Audrey Blanchard on 08-20-2024 Interpretation and review of laboratory results Abnormal [facility] Source Of Oxygen Nasal cannula [facility] PHOSPHORUSon 08-20-2024 Phosphate [Mass/Vol] 4.1 mg/dL Normal 2.5-4.5 [facility] Comment on above: Performed By: #### L [id number], [id number], [id number] ####Textile Engineer: MARY SOTELO ([phone])[facility])[address] [place] [address] [place] Phosphate [Moles/Vol]on 08-03 Phosphate [Mass/Vol] 4.1 mg/dL 2.5 - 4 .5 mg/dL [facility] Progress Noteon 08-20-2024 Progress Note OCCUPATIONAL THERAPY Attempted OT services, pt on hold due to pt unable to stay aroused/limited responsiveness. Will reattempt when pt is alert/able to participate. Normal [facility] Progress [facility] Normal [facility] Progress Note Normal [facility] Progress Note Normal [facility] Progress Note Normal [facility] BASIC METABOLIC PANELon 08-03 Anion gap [Moles/Vol] 3 mmol/L Normal 3-13 [facility] Comment on above: Performed By: #### L [id number], LAB15, [id number], [id number] ####Textile Engineer: MARY SOTELO ([id number])[facility] ([facility])[address] [place] [address] [place] Calcium [Mass/Vol] 7.4 mg/dL Low 8.4-10.4 [facility] Comment on above: Performed By: #### L AB113, LAB15, [id number], [id number] ####Textile Engineer: MARY SOTELO ([phone])[facility] ([facility])[address] [place] [address] [place] Chloride [Moles/Vol] 95 mmol/L Low 98-107 [facility] Comment on above: Performed By: #### L AB113, LAB15, [id number], [id number] ####Textile Engineer: MARY SOTELO ([id number])[facility] ([facility])[address] [place] [address] CO2 [Moles/Vol] 28 mmol/L Normal 22-30 [facility] Comment on above: Performed By: #### L AB113, LAB15, [id number], [id number] ####Textile Engineer: MARY SOTELO ([id number])[facility] ([facility])[address] [place] [address] Creatinine [Mass/Vol] 2.98 mg/dL High 0.52-1.[address] [facility] Comment on above: Performed By: #### L AB113, LAB15, [id number], [id number] ####Textile Engineer: MARY SOTELO ([phone])[facility])[address] [place] [address] GLOMERULAR FILTRATION RATE ML/MIN/1.73 SQ M.PREDICTED 17.0 mL/min/1.73m*2 Low >60.0 [facility] Comment on above: Result Comment: Calc ulation based on the Chronic Kidney Disease Epidemiology Collaboration (CKD-EPI) equation refit without adjustment for race Performed By: #### L AB113, LAB15, [id number], [id number] ####Textile Engineer: MARY SOTELO ([id number])[facility] ([facility])[address] [place] [address] Glucose [Mass/Vol] 626 mg/dL Critically high 70-100 [facility] Comment on above: Performed By: #### L AB113, LAB15, [id number], [id number] ####Textile Engineer: MARY SOTELO ([phone])[facility])[address] [place] [address] Potassium [Moles/Vol] 4.4 mmol/L Normal 3.5-5.[address] [facility] Comment on above: Performed By: #### L AB113, LAB15, [id number], [id number] ####Textile Engineer: MARY SOTELO ([phone])[facility] ([facility])[address] [place] [address] Sodium [Moles/Vol] 126 mmol/L Low 135-145 [facility] Comment on above: Performed By: #### L AB113, LAB15, [id number], [id number] ####Textile Engineer: MARY SOTELO ([phone])[facility] ([place] [facility] [place] [address] Urea nitrogen [Mass/Vol] 28 mg/dL High 05-19 [facility] Comment on above: Performed By: #### L [id number], LAB15, [id number], [id number] ####Textile Engineer: MAYR SOTELO ([id number])[facility] ([facility])[address] [place] [address] BETA HYDROXYBUTYRATEon 08-19 BETA HYDROXYBUTYRATE 7.01 mg/dL High 0.20-2.81 [facility] Comment on above: Performed By: #### L AB113, LAB15, [id number], [id number] ####Textile Engineer: MARY SOTELO ([id number])[facility] ([facility])[address] [place] [address] Bacteria identified Cx Nom ( Bld)on 08-19-2024 Interpretation and review of laboratory results Normal [facility] [employer] Basic metabolic 1998 panelon 08-19-2024 Anion gap [Moles/Vol] 3 mmol/L 3 - 13 mmol/L [facility] Calcium [Mass/Vol] 7.4 mg/dL Low 8.4 - 10. 4 mg/dL [facility] Chloride [Moles/Vol] 95 mmol/L Low 98 - 10 7 mmol/L [facility] CO2 [Moles/Vol] 28 mmol/L 22 - 30 mmol/L [facility] Creatinine [Mass/Vol] 2.98 mg/dL High 0.52 - 1.04 mg/dL [facility] GFR/1.73 sq M.predicted (S/P/Bld) [Vol rate/Area] 17 mL/min Low - PINF [facility] Glucose [Mass/Vol] 626 mg/dL Critically high 70 - 1 00 mg/dL [facility] Interpretation and review of laboratory results Abnormal [facility] Potassium [Moles/Vol] 4.4 mmol/L 3.5 - 5.1 mmol/L [facility] Sodium [Moles/Vol] 126 mmol/L Low 135 - 145 mmol/L [facility] Urea nitrogen [Mass/Vol] 28 mg/dL High 7 - 17 mg/dL [facility] CALCIUM, IONIZEDon CALCIUM IONIZED 4.20 mg/dL Low 4.30-5.20 [facility] Comment on above: Performed By: #### L [id number] ####Textile Engineer: MARY SOTELO ([id number])[address] PH, IONIZED CALCIUM 7.21 Low 7.31-7.46 [facility] Comment on above: Performed By: #### L [id number] ####Textile Engineer: MARY SOTELO ([id number])[facility] ([facility])[address] [place] [address] CBC W Auto Differential pane l (Bld)on 08-19-2024 Basophils (Bld) [#/Vol] 0 10*3/uL 0.0 - 0.2 10*3/uL [facility] Basophils/100 WBC (Bld) 0.3 % 0.0 - 2.0 % [facility] Eosinophils (Bld) [#/Vol] 0.1 10*3/uL 0.0 - 0.5 10*3/uL [facility] Eosinophils/100 WBC (Bld) 2.5 % 0.0 - 6.0 % [facility] Erythrocyte distribution width (RBC) [Ratio] 15.6 % High 11.5 - 15.0 % [facility] Hematocrit (Bld) [Volume fraction] 29.5 % Low 35.0 - 47.0 % [facility] Hemoglobin (Bld) [Mass/Vol] 9.3 g/dL Low 11.7 - 16.0 g/dL [facility] Immature granulocytes (Bld) [#/Vol] 0 10*3/uL NINF - 0.1 10*3/uL [facility] Immature granulocytes/100 WBC (Bld) 0.3 % 0.0 - 2.0 % [facility] Interpretation and review of laboratory results Abnormal [facility] Lymphocytes (Bld) [#/Vol] 0.6 10*3/uL Low 1.0 - 4.3 10*3/uL [facility] Lymphocytes/100 WBC (Bld) 14.8 % Low 15.0 - 45.0 % [facility] MCH (RBC) [Entitic mass] 29.3 pg 26.0 - 34.0 pg [facility] MCHC (RBC) [Mass/Vol] 31.5 % 30.5 - 36.0 % [facility] MCV (RBC) [Entitic vol] 93.1 fL 77.0 - 99.0 fL [facility] Monocytes (Bld) [#/Vol] 0.3 10*3/uL 0.0 - 0.9 10*3/uL [facility] Monocytes/100 WBC (Bld) 6.8 % 5.0 - 13.0 % [facility] Neutrophils (Bld) [#/Vol] 3 10*3/uL 1.8 - 7.5 10*3/uL [facility] Neutrophils/100 WBC (Bld) 75.3 % 38.0 - 82.0 % [facility] Nucleated RBC/100 WBC (Bld) [Ratio] 0 % [facility] Platelet mean volume (Bld) [Entitic vol] 10.6 fL 9.0 - 12.7 fL [facility] Platelets (Bld) [#/Vol] 114 10*3/uL Low 140 - 440 10*3/uL [facility] RBC (Bld) [#/Vol] 3.17 10*6/uL Low 3.80 - 5.2 0 10*6/uL [facility] WBC (Bld) [#/Vol] 4 10*3/uL 3.6 - 10.7 10*3/uL [facility] CBC WITH AUTO DIFFERENTIALon 08-19-2024 Basophils (Bld) [#/Vol] 0.0 10*3/uL Normal 0.0-0.2 [facility] Comment on above: Performed By: #### L [id number] ####Textile Engineer: MARY SOTELO ([id number])[facility] ([facility] Basophils/100 WBC (Bld) 0.3 % Normal 0.0-2.0 [facility] Comment on above: Performed By: #### L [id number] ####Textile Engineer: MARY SOTELO ([id number])[facility])[address] [place] [address] Eosinophils (Bld) [#/Vol] 0.1 10*3/uL Normal 0.0-0.5 [facility] Comment on above: Performed By: #### L [id number] ####Textile Engineer: MARY SOTELO ([id number])[address] Eosinophils/100 WBC (Bld) 2.5 % Normal 0.0-6.0 [facility] Comment on above: Performed By: #### L [id number] ####Textile Engineer: MARY SOTELO ([id number])[facility])[address] [place] [address] Erythrocyte distribution width (RBC) [Ratio] 15.6 % High 11.5-15.0 [facility] Comment on above: Performed By: #### L [id number] ####Textile Engineer: MARY SOTELO ([id number])[address] Hematocrit (Bld) [Volume fraction] 29.5 % Low 35.0-47.0 [facility] Comment on above: Performed By: #### L [id number] ####Textile Engineer: MARY SOTELO ([id number])[address] Hemoglobin (Bld) [Mass/Vol] 9.3 g/dL Low 11.7-16.0 [facility] Comment on above: Performed By: #### L [id number] ####Textile Engineer: MARY SOTELO ([id number])[facility])[address] [place] [address] IMMATURE GRANS % 0.3 % Normal 0.0-2.0 [facility] Comment on above: Performed By: #### L [id number] ####Textile Engineer: MARY SOTELO ([id number])[address] IMMATURE GRANS ABSOLUTE 0.0 10*3/uL Normal <0.1 [facility] Comment on above: Performed By: #### L [id number] ####Textile Engineer: MARY SOTELO ([id number])[facility])[address] [place] [address] Lymphocytes (Bld) [#/Vol] 0.6 10*3/uL Low 1.0-4.3 [facility] Comment on above: Performed By: #### L [id number] ####Textile Engineer: MARY SOTELO ([id number])[address] Lymphocytes/100 WBC (Bld) 14.8 % Low 15.0-45.0 [facility] Comment on above: Performed By: #### L [id number] ####Textile Engineer: MARY SOTELO ([id number])[facility])[address] [place] [address] MCH (RBC) [Entitic mass] 29.3 pg Normal 26.0-34.0 [facility] Comment on above: Performed By: #### L [id number] ####Textile Engineer: MARY SOTELO ([id number])[address] MCHC 31.5 % Normal 30.5-36.0 [facility] Comment on above: Performed By: #### L [id number] ####Textile Engineer: MARY SOTELO ([id number])[address] MCV (RBC) [Entitic vol] 93.1 fL Normal 77.0-99.0 [facility] Comment on above: Performed By: #### L [id number] ####Textile Engineer: MARY [id number])[facility] ([facility])[address] [place] [address] Monocytes (Bld) [#/Vol] 0.3 10*3/uL Normal 0.0-0.9 [facility] Comment on above: Performed By: #### L [id number] ####Textile Engineer: MARY SOTELO ([id number])[facility] ([facility])[address] [place] [address] Monocytes/100 WBC (Bld) 6.8 % Normal 5.0-13.0 [facility] Comment on above: Performed By: #### L [id number] ####Textile Engineer: MARY SOTELO ([id number])[facility] ([facility])[address] [place] [address] NEUTROPHILS ABSOLUTE 3.0 10*3/uL Normal 1.8-7.5 [facility] Comment on above: Performed By: #### L [id number] ####Textile Engineer: MARY SOTELO ([id number])[facility] ([facility])[address] [place] [address] Neutrophils/100 WBC (Bld) 75.3 % Normal 38.0-82.0 [facility] Comment on above: Performed By: #### L [id number] ####Textile Engineer: MARY SOTELO ([id number])[facility] ([facility])[address] [place] [address] NRBC 0.0 /100 WBCs Normal 0.0-2.0 [facility] Comment on above: Performed By: #### L [id number] ####Textile Engineer: MARY SOTELO ([id number])[facility] ([facility])[address] [place] [address] Platelet mean volume (Bld) [Entitic vol] 10.6 fL Normal 9.0-12.7 [facility] Comment on above: Performed By: #### L [id number] ####Textile Engineer: MARY SOTELO ([id number])[facility] ([facility])[address] [place] [address] Platelets (Bld) [#/Vol] 114 10*3/uL Low 140-440 [facility] Comment on above: Performed By: #### L [id number] ####Textile Engineer: MARY SOTELO ([id number])[facility] ([facility])[address] [place] [address] RBC (Bld) [#/Vol] 3.17 10*6/uL Low 3.80-5.20 [facility] Comment on above: Performed By: #### L [id number] ####Textile Engineer: MARY SOTELO ([id number])[facility] ([facility])[address] [place] [address] WBC (Bld) [#/Vol] 4.0 10*3/uL Normal 3.6-10.7 [facility] Comment on above: Performed By: #### L [id number] ####Textile Engineer: MARY SOTELO ([id number])[facility] ([facility])[address] [place] [address] Calcium.ionized [Moles/Vol]O rdered By: Yoana Boyd on 08-19-2024 Calcium.ionized (Bld) [Moles/Vol] 4.2 mg/dL Low 4.30 - 5.20 mg/dL [facility] Interpretation and review of laboratory results Abnormal [facility] PH, IONIZED CALCIUM 7.21 Low 7.31 - 7.46 [facility] GLUCOSE, RANDOMon 08-19-2024 Glucose [Mass/Vol] 653 mg/dL Critically high 70-100 S [facility] Comment on above: Performed By: #### L [id number] ####Textile Engineer: MARY SOTELO ([id number])[facility] ([facility])[address] [place] [address] Glucose (Bld) [Mass/Vol]on 1 Glucose [Mass/Vol] 653 mg/dL Critically high 70 - 1 00 mg/dL [facility] Interpretation and review of laboratory results Abnormal [facility] Laboratory - Chemistry and C hemistry - challengeon 08-19-2024 Glucose [Mass/Vol] 118 mg/dL High 70 - 100 mg/dL [facility] Glucose [Mass/Vol] 162 mg/dL High 70 - 100 mg/dL [facility] Glucose [Mass/Vol] 268 mg/dL High 70 - 100 mg/dL [facility] Glucose [Mass/Vol] 414 mg/dL High 70 - 100 mg/dL [facility] Glucose [Mass/Vol] mg/dL High 70 - 100 mg/dL [facility] Glucose [Mass/Vol] mg/dL High 70 - 100 mg/dL [facility] Glucose [Mass/Vol] mg/dL High 70 - 100 mg/dL [facility] Beta hydroxybutyrate [Mass/Vol] 7.01 mg/dL High 0.20 - 2.81 mg/dL [facility] Magnesium [Mass/Vol] 2 mg/dL 1.6 - 2 .3 mg/dL [facility] Glucose [Mass/Vol] mg/dL High 70 - 100 mg/dL [facility] Laboratory - Microbiology an d Antimicrobial susceptibilityon 08-19-2024 Bacteria identified Cx Nom (Bld) No growth at 5 days [facility] MAGNESIUMon 08-19-2024 Magnesium [Mass/Vol] 2.0 mg/dL Normal 1.6-2.3 [facility] Comment on above: Performed By: #### L [id number], LAB15, [id number], [id number] ####Textile Engineer: MARY SOTELO ([id number])[address] No Panel Informationon 08-19 Interpretation and review of laboratory results Abnormal [facility] Interpretation and review of laboratory results Abnormal [facility] Interpretation and review of laboratory results Abnormal [facility] Interpretation and review of laboratory results Abnormal [facility] Interpretation and review of laboratory results Abnormal [facility] Interpretation and review of laboratory results Abnormal [facility] Interpretation and review of laboratory results Abnormal [facility] Interpretation and review of laboratory results Abnormal [facility] Interpretation and review of laboratory results Normal [facility] Interpretation and review of laboratory results Abnormal [facility] Nursing Noteon 08-19-2024 Nursing Note Pt MBS for dinner wa s 162 orders for 8 scheduled H. Log and [address] Baires paged. Orders to give SSI and Hold scheduled 8 units if pt does not eat dinner. Pt did not want to eat dinner; 8 units held Normal [facility] Nursing Note Pt seemingly more confused and a little more lethargic than this morning. Med Team paged to make aware Normal [facility] Nursing Note Pt recheck MBS was 527. Dr. Bijan Jarrett paged to make aware Normal [facility] Nursing Note Pt MBS still reading HI. Med Team at bedside. Physician stated no need to draw confirmation, but to give 1 time 15 unit of R and recheck in one hour. Normal [facility] Nursing Note Dr. Bijan Jarrett paged wi th repeat glucose of 653 Normal [facility] Nursing Note Critical Care lab called with result of 626. Med Team A paged regarding. Normal [facility] PHOSPHORUSon 08-19-2024 Phosphate [Mass/Vol] 3.8 mg/dL Normal 2.5-4.5 [facility] Comment on above: Performed By: #### L AB113, LAB15, [id number], [id number] ####Textile Engineer: MARY SOTELO ([id number])[facility])[address] [place] [address] [place] Phosphate [Moles/Vol]on 08-03 Phosphate [Mass/Vol] 3.8 mg/dL 2.5 - 4 .5 mg/dL [facility] Progress Noteon 08-19-[address] [facility] Progress Note [facility] Progress Note [facility] Progress [facility] Normal [facility] BASIC METABOLIC PANELon 08-03 Anion gap [Moles/Vol] 4 mmol/L Normal 3-[address] [facility] Comment on above: Performed By: #### L AB113, [id number], LAB15 ####Textile Engineer: MARY SOTELO ([id number])[facility] ([facility])[address] [place] [address] [place] Calcium [Mass/Vol] 7.9 mg/dL Low 8.4-10.4 [facility] Comment on above: Performed By: #### L AB113, [id number], LAB15 ####Textile Engineer: MARY SOTELO ([id number])[facility])[address] [place] [address] Chloride [Moles/Vol] 99 mmol/L Normal 98-107 [facility] Comment on above: Performed By: #### L AB113, [id number], LAB15 ####Textile Engineer: MARY SOTELO ([id number])[facility] ([facility])[address] [place] [address] CO2 [Moles/Vol] 27 mmol/L Normal 22-30 [facility] Comment on above: Performed By: #### L AB113, [id number], LAB15 ####Textile Engineer: MARY SOTELO ([id number])[facility])[address] [place] [address] Creatinine [Mass/Vol] 3.57 mg/dL High 0.52-1.[address] [facility] Comment on above: Performed By: #### L AB113, [id number], LAB15 ####Textile Engineer: MARY SOTELO ([id number])[facility])[address] [place] [address] GLOMERULAR FILTRATION RATE ML/MIN/1.73 SQ M.PREDICTED 13.7 mL/min/1.73m*2 Low >60.0 [facility] Comment on above: Result Comment: Calc ulation based on the Chronic Kidney Disease Epidemiology Collaboration (CKD-EPI) equation refit without adjustment for race Performed By: #### L AB113, [id number], LAB15 ####Textile Engineer: MARY SOTELO ([id number])[facility] ([facility])[address] [place] [address] [place] Glucose [Mass/Vol] 281 mg/dL High 70-100 [facility] Comment on above: Performed By: #### L AB113, [id number], LAB15 ####Textile Engineer: MARY SOTELO ([id number])[facility])[address] [place] [address] Potassium [Moles/Vol] 3.8 mmol/L Normal 3.5-5.1 [facility] Comment on above: Performed By: #### L AB113, [id number], LAB15 ####Textile Engineer: MARY SOTELO ([id number])[facility] ([facility])[address] [place] [address] Sodium [Moles/Vol] 130 mmol/L Low 135-145 [facility] Comment on above: Performed By: #### L AB113, [id number], LAB15 ####Textile Engineer: MARY SOTELO ([id number])[facility] ([facility])[address] [place] [address] Urea nitrogen [Mass/Vol] 35 mg/dL High 7-17 [facility] Comment on above: Performed By: #### L AB113, [id number], LAB15 ####Textile Engineer: MARY SOTELO ([id number])[facility] ([facility])[address] [place] [address] Basic metabolic 1998 panelon 08-18-2024 Anion gap [Moles/Vol] 4 mmol/L 3 - 13 mmol/L [facility] Calcium [Mass/Vol] 7.9 mg/dL Low 8.4 - 10. 4 mg/dL [facility] Chloride [Moles/Vol] 99 mmol/L 98 - 10 7 mmol/L [facility] CO2 [Moles/Vol] 27 mmol/L 22 - 30 mmol/L [facility] Creatinine [Mass/Vol] 3.57 mg/dL High 0.52 - 1.04 mg/dL [facility] GFR/1.73 sq M.predicted (S/P/Bld) [Vol rate/Area] 13.7 mL/min Low - PINF [facility] Glucose [Mass/Vol] 281 mg/dL High 70 - 100 mg/dL [facility] Interpretation and review of laboratory results Abnormal [facility] Potassium [Moles/Vol] 3.8 mmol/L 3.5 - 5.1 mmol/L [facility] Sodium [Moles/Vol] 130 mmol/L Low 135 - 145 mmol/L [facility] Urea nitrogen [Mass/Vol] 35 mg/dL High 7 - 17 mg/dL [facility] CALCIUM, IONIZEDon CALCIUM IONIZED 4.50 mg/dL Normal 4.30-5.20 [facility] Comment on above: Performed By: #### L [id number] ####Textile Engineer: MARY SOTELO ([id number])[facility] ([facility])[address] [place] [address] PH, IONIZED CALCIUM 7.26 Low 7.31-7.46 [facility] Comment on above: Performed By: #### L [id number] ####Textile Engineer: MARY SOTELO ([id number])[facility] ([facility])[address] [place] [address] CARECOORDon 08-18-2024 CARECOORD Normal [facility] CBC W Auto Differential pane l (Bld)on 08-18-2024 Basophils (Bld) [#/Vol] 0 10*3/uL 0.0 - 0.2 10*3/uL [facility] Basophils/100 WBC (Bld) 0.2 % 0.0 - 2.0 % [facility] Eosinophils (Bld) [#/Vol] 0.1 10*3/uL 0.0 - 0.5 10*3/uL [facility] Eosinophils/100 WBC (Bld) 2.9 % 0.0 - 6.0 % [facility] Erythrocyte distribution width (RBC) [Ratio] 15.7 % High 11.5 - 15.0 % [facility] Hematocrit (Bld) [Volume fraction] 29.1 % Low 35.0 - 47.0 % [facility] Hemoglobin (Bld) [Mass/Vol] 9.2 g/dL Low 11.7 - 16.0 g/dL [facility] Immature granulocytes (Bld) [#/Vol] 0 10*3/uL NINF - 0.1 10*3/uL [facility] Immature granulocytes/100 WBC (Bld) 0.7 % 0.0 - 2.0 % [facility] Interpretation and review of laboratory results Abnormal [facility] IPF 4 [facility] Lymphocytes (Bld) [#/Vol] 0.8 10*3/uL Low 1.0 - 4.3 10*3/uL [facility] Lymphocytes/100 WBC (Bld) 17.9 % 15.0 - 45.0 % [facility] MCH (RBC) [Entitic mass] 29.1 pg 26.0 - 34.0 pg [facility] MCHC (RBC) [Mass/Vol] 31.6 % 30.5 - 36.0 % [facility] MCV (RBC) [Entitic vol] 92.1 fL 77.0 - 99.0 fL [facility] Monocytes (Bld) [#/Vol] 0.4 10*3/uL 0.0 - 0.9 10*3/uL [facility] Monocytes/100 WBC (Bld) 7.8 % 5.0 - 13.0 % [facility] Neutrophils (Bld) [#/Vol] 3.2 10*3/uL 1.8 - 7.5 10*3/uL [facility] Neutrophils/100 WBC (Bld) 70.5 % 38.0 - 82.0 % [facility] Nucleated RBC/100 WBC (Bld) [Ratio] 0 % [facility] Platelet mean volume (Bld) [Entitic vol] 10.2 fL 9.0 - 12.7 fL [facility] Platelets (Bld) [#/Vol] 111 10*3/uL Low 140 - 440 10*3/uL [facility] RBC (Bld) [#/Vol] 3.16 10*6/uL Low 3.80 - 5.2 0 10*6/uL [facility] WBC (Bld) [#/Vol] 4.5 10*3/uL 3.6 - 10.7 10*3/uL [facility] CBC WITH AUTO DIFFERENTIALon 08-18-2024 Basophils (Bld) [#/Vol] 0.0 10*3/uL Normal 0.0-0.2 [facility] Comment on above: Performed By: #### L [id number] ####Textile Engineer: MARY SOTELO ([phone])[address] Basophils/100 WBC (Bld) 0.2 % Normal 0.0-2.0 [facility] Comment on above: Performed By: #### L [id number] ####Textile Engineer: MARY SOTELO ([id number])[facility])[address] [place] [address] Eosinophils (Bld) [#/Vol] 0.1 10*3/uL Normal 0.0-0.5 [facility] Comment on above: Performed By: #### L [id number] ####Textile Engineer: MARY SOTELO ([id number])[facility])[address] [place] [address] Eosinophils/100 WBC (Bld) 2.9 % Normal 0.0-6.0 [facility] Comment on above: Performed By: #### L [id number] ####Textile Engineer: MARY SOTELO ([id number])[address] Erythrocyte distribution width (RBC) [Ratio] 15.7 % High 11.5-15.0 [facility] Comment on above: Performed By: #### L [id number] ####Textile Engineer: MARY SOTELO ([id number])[facility])[address] [place] [address] Hematocrit (Bld) [Volume fraction] 29.1 % Low 35.0-47.0 [facility] Comment on above: Performed By: #### L [id number] ####Textile Engineer: MARY SOTELO ([id number])[address] Hemoglobin (Bld) [Mass/Vol] 9.2 g/dL Low 11.7-16.0 [facility] Comment on above: Performed By: #### L [id number] ####Textile Engineer: MARY SOTELO ([id number])[facility])[address] [place] [address] IMMATURE GRANS % 0.7 % Normal 0.0-2.0 [facility] Comment on above: Performed By: #### L [id number] ####Textile Engineer: MARY SOTELO ([id number])[address] IMMATURE GRANS ABSOLUTE 0.0 10*3/uL Normal <0.1 [facility] Comment on above: Performed By: #### L [id number] ####Textile Engineer: MARY SOTELO ([id number])[facility])[address] [place] [address] IPF 4 Normal [facility] Comment on above: Performed By: #### L [id number] ####Textile Engineer: MARY SOTELO ([id number])[facility])[address] [place] [address] Lymphocytes (Bld) [#/Vol] 0.8 10*3/uL Low 1.0-4.3 [facility] Comment on above: Performed By: #### L [id number] ####Textile Engineer: MARY SOTELO ([id number])[address] Lymphocytes/100 WBC (Bld) 17.9 % Normal 15.0-45.0 [facility] Comment on above: Performed By: #### L [id number] ####Textile Engineer: MARY SOTELO ([id number])[address] MCH (RBC) [Entitic mass] 29.1 pg Normal 26.0-34.0 [facility] Comment on above: Performed By: #### L [id number] ####Textile Engineer: MARY SOTELO ([id number])[address] MCHC 31.6 % Normal 30.5-36.0 [facility] Comment on above: Performed By: #### L [id number] ####Textile Engineer: MARY SOTELO ([id number])[address] MCV (RBC) [Entitic vol] 92.1 fL Normal 77.0-99.0 [facility] Comment on above: Performed By: #### L [id number] ####Textile Engineer: MARY SOTELO ([id number])[facility] ([facility])[address] [place] [address] Monocytes (Bld) [#/Vol] 0.4 10*3/uL Normal 0.0-0.9 [facility] Comment on above: Performed By: #### L [id number] ####Textile Engineer: MARY SOTELO ([phone])[facility] ([facility])[address] [place] [address] Monocytes/100 WBC (Bld) 7.8 % Normal 5.0-13.0 [facility] Comment on above: Performed By: #### L [id number] ####Textile Engineer: MARY SOTELO ([phone])[facility] ([facility])[address] [place] [address] NEUTROPHILS ABSOLUTE 3.2 10*3/uL Normal 1.8-7.5 [facility] Comment on above: Performed By: #### L [id number] ####Textile Engineer: MARY SOTELO ([id number])[facility] ([facility])[address] [place] [address] Neutrophils/100 WBC (Bld) 70.5 % Normal 38.0-82.0 [facility] Comment on above: Performed By: #### L [id number] ####Textile Engineer: MARY SOTELO ([id number])[facility] ([facility])[address] [place] [address] NRBC 0.0 /100 WBCs Normal 0.0-2.0 [facility] Comment on above: Performed By: #### L [id number] ####Textile Engineer: MARY SOTELO ([phone])[facility] ([facility])[address] [place] [address] Platelet mean volume (Bld) [Entitic vol] 10.2 fL Normal 9.0-12.7 [facility] Comment on above: Performed By: #### L [id number] ####Textile Engineer: MARY SOTELO ([phone])[facility] ([facility])[address] [place] [address] [place] Platelets (Bld) [#/Vol] 111 10*3/uL Low 140-440 [facility] Comment on above: Performed By: #### L [id number] ####Textile Engineer: MARY SOTELO ([id number])[facility] ([facility])[address] [place] [address] RBC (Bld) [#/Vol] 3.16 10*6/uL Low 3.80-5.20 [facility] Comment on above: Performed By: #### L [id number] ####Textile Engineer: MARY SOTELO ([id number])[facility] ([facility])[address] [place] [address] WBC (Bld) [#/Vol] 4.5 10*3/uL Normal 3.6-10.7 [facility] Comment on above: Performed By: #### L [id number] ####Textile Engineer: MARY SOTELO ([phone])[facility] ([facility])[address] [place] [address] Calcium.ionized [Moles/Vol]O rdered By: Elliott Macedo on 08-18-2024 Calcium.ionized (Bld) [Moles/Vol] 4.5 mg/dL 4.30 - 5.20 mg/dL [facility] Interpretation and review of laboratory results Abnormal [facility] PH, IONIZED CALCIUM 7.26 Low 7.31 - 7.46 [facility] IDNon 08-18-2024 IDN Normal [facility] - Chemistry and C hemistry - challengeon 08-18-2024 Glucose [Mass/Vol] 297 mg/dL High 70 - 100 mg/dL [facility] Glucose [Mass/Vol] 325 mg/dL High 70 - 100 mg/dL [facility] Glucose [Mass/Vol] 181 mg/dL High 70 - 100 mg/dL [facility] Glucose [Mass/Vol] 187 mg/dL High 70 - 100 mg/dL [facility] Magnesium [Mass/Vol] 2 mg/dL 1.6 - 2 .3 mg/dL [facility] MAGNESIUMon 08-18-2024 Magnesium [Mass/Vol] 2.0 mg/dL Normal 1.6-2.3 [facility] Comment on above: Performed By: #### L [id number], [id number], LAB15 ####Textile Engineer: MARY SOTELO ([phone])[facility] ([facility])[address] [place] [address] No Panel Informationon 08-18 Interpretation and review of laboratory results Abnormal [facility] Interpretation and review of laboratory results Abnormal [facility] Interpretation and review of laboratory results Abnormal [facility] Interpretation and review of laboratory results Abnormal [facility] Interpretation and review of laboratory results Normal [facility] Nursing Noteon 08-18-2024 Nursing Note Normal [facility] PHOSPHORUSon 08-18-2024 Phosphate [Mass/Vol] 3.4 mg/dL Normal 2.5-4.5 [facility] Comment on above: Performed By: #### L [id number], [id number], LAB15 ####Textile Engineer: MARY SOTELO ([phone])[facility] ([facility])[address] [place] [address] [place] Phosphate [Moles/Vol]on 08-03 Phosphate [Mass/Vol] 3.4 mg/dL 2.5 - 4 .5 mg/dL [facility] Progress Noteon 08-18-[address] [facility] Progress Note Normal [facility] Progress Note Normal [facility] Progress Note Normal [facility] BASIC METABOLIC PANELon 08-03 Anion gap [Moles/Vol] 5 mmol/L Normal 3-13 [facility] Comment on above: Performed By: #### L AB103, [id number], LAB15 ####Textile Engineer: MARY SOTELO ([phone])[facility] ([facility])[address] [place] [address] [place] Calcium [Mass/Vol] 7.0 mg/dL Low 8.4-10.4 [facility] Comment on above: Performed By: #### L AB103, [id number], LAB15 ####Textile Engineer: MARY SOTELO ([id number])[facility] [place] [address] [place] Chloride [Moles/Vol] 100 mmol/L Normal 98-107 [facility] Comment on above: Performed By: #### L AB103, [id number], LAB15 ####Textile Engineer: MARY SOTELO ([phone])[facility] ([facility])[address] [place] [address] CO2 [Moles/Vol] 28 mmol/L Normal 22-30 [facility] Comment on above: Performed By: #### L AB103, [id number], LAB15 ####Textile Engineer: MARY SOTELO ([phone])[facility])[address] [place] [address] Creatinine [Mass/Vol] 2.31 mg/dL High 0.52-1.[address] [facility] Comment on above: Performed By: #### L AB103, [id number], LAB15 ####Textile Engineer: MARY SOTELO ([phone])[facility] ([facility])[address] [place] [address] GLOMERULAR FILTRATION RATE ML/MIN/1.73 SQ M.PREDICTED 23.1 mL/min/1.73m*2 Low >60.0 [facility] Comment on above: Result Comment: Calc ulation based on the Chronic Kidney Disease Epidemiology Collaboration (CKD-EPI) equation refit without adjustment for race Performed By: #### L AB103, [id number], LAB15 ####Textile Engineer: MARY SOTELO ([id number])[facility] ([facility])[address] [place] [address] Glucose [Mass/Vol] 152 mg/dL High 70-100 [facility] Comment on above: Performed By: #### L AB103, [id number], LAB15 ####Textile Engineer: MARY SOTELO ([phone])[facility])[address] [place] [address] Potassium [Moles/Vol] 3.6 mmol/L Normal 3.5-5.[address] [facility] Comment on above: Performed By: #### L AB103, [id number], LAB15 ####Textile Engineer: MARY SOTELO ([phone])[facility] ([facility])[address] [place] [address] Sodium [Moles/Vol] 132 mmol/L Low 135-145 [facility] Comment on above: Performed By: #### L AB103, [id number], LAB15 ####Textile Engineer: MARY SOTELO ([phone])[facility] ([facility])[address] [place] [address] Urea nitrogen [Mass/Vol] 21 mg/dL High 7-17 [facility] Comment on above: Performed By: #### L AB103, [id number], LAB15 ####Textile Engineer: MARY SOTELO ([phone])[facility] ([facility])[address] [place] [address] Bacteria identified Cx Nom ( Bld)on 08-17-2024 Interpretation and review of laboratory results Normal [facility] Basic metabolic 1998 panelon 08-17-2024 Anion gap [Moles/Vol] 5 mmol/L 3 - 13 mmol/L [facility] Calcium [Mass/Vol] 7 mg/dL Low 8.4 - 10. 4 mg/dL [facility] Chloride [Moles/Vol] 100 mmol/L 98 - 10 7 mmol/L [facility] CO2 [Moles/Vol] 28 mmol/L 22 - 30 mmol/L [facility] Creatinine [Mass/Vol] 2.31 mg/dL High 0.52 - 1.04 mg/dL [facility] GFR/1.73 sq M.predicted (S/P/Bld) [Vol rate/Area] 23.1 mL/min Low - PINF [facility] Glucose [Mass/Vol] 152 mg/dL High 70 - 100 mg/dL [facility] Interpretation and review of laboratory results Abnormal [facility] Potassium [Moles/Vol] 3.6 mmol/L 3.5 - 5.1 mmol/L [facility] Sodium [Moles/Vol] 132 mmol/L Low 135 - 145 mmol/L [facility] Urea nitrogen [Mass/Vol] 21 mg/dL High 7 - 17 mg/dL [facility] CALCIUM, IONIZEDon 10-15-202 4 CALCIUM IONIZED 3.80 mg/dL Low 4.30-5.20 [facility] Comment on above: Performed By: #### L [id number] ####Textile Engineer: MARY SOTELO ([phone])[facility] ([facility] [place] [address] PH, IONIZED CALCIUM 7.39 Normal 7.31-7.46 [facility] Comment on above: Performed By: #### L AB54 ####Textile Engineer: MARY SOTELO ([id number])[facility] ([facility])[address] [place] [address] CARECOORDon 08-17-2024 CARECOORD Normal [facility] CBC W Auto Differential pane l (Bld)on 08-17-2024 Basophils (Bld) [#/Vol] 0 10*3/uL 0.0 - 0.2 10*3/uL [facility] [employer] Basophils/100 WBC (Bld) 0.2 % 0.0 - 2.0 % [facility] Eosinophils (Bld) [#/Vol] 0.1 10*3/uL 0.0 - 0.5 10*3/uL [facility] [employer] Eosinophils/100 WBC (Bld) 2.6 % 0.0 - 6.0 % [facility] [employer] Erythrocyte distribution width (RBC) [Ratio] 15.8 % High 11.5 - 15.0 % [facility] [employer] Hematocrit (Bld) [Volume fraction] 28.7 % Low 35.0 - 47.0 % [facility] [employer] Hemoglobin (Bld) [Mass/Vol] 9.1 g/dL Low 11.7 - 16.0 g/dL [facility] [employer] Immature granulocytes (Bld) [#/Vol] 0 10*3/uL NINF - 0.1 10*3/uL [facility] [employer] Immature granulocytes/100 WBC (Bld) 0.4 % 0.0 - 2.0 % [facility] [employer] Interpretation and review of laboratory results Abnormal [facility] IPF 4 [facility] Lymphocytes (Bld) [#/Vol] 0.7 10*3/uL Low 1.0 - 4.3 10*3/uL [facility] [employer] Lymphocytes/100 WBC (Bld) 15.7 % 15.0 - 45.0 % [facility] MCH (RBC) [Entitic mass] 29.1 pg 26.0 - 34.0 pg [facility] MCHC (RBC) [Mass/Vol] 31.7 % 30.5 - 36.0 % [facility] MCV (RBC) [Entitic vol] 91.7 fL 77.0 - 99.0 fL [facility] Monocytes (Bld) [#/Vol] 0.3 10*3/uL 0.0 - 0.9 10*3/uL [facility] Monocytes/100 WBC (Bld) 6.8 % 5.0 - 13.0 % [facility] Neutrophils (Bld) [#/Vol] 3.4 10*3/uL 1.8 - 7.5 10*3/uL [facility] Neutrophils/100 WBC (Bld) 74.3 % 38.0 - 82.0 % [facility] Nucleated RBC/100 WBC (Bld) [Ratio] 0 % [facility] Platelet mean volume (Bld) [Entitic vol] 10.7 fL 9.0 - 12.7 fL [facility] Platelets (Bld) [#/Vol] 105 10*3/uL Low 140 - 440 10*3/uL [facility] RBC (Bld) [#/Vol] 3.13 10*6/uL Low 3.80 - 5.2 0 10*6/uL [facility] WBC (Bld) [#/Vol] 4.5 10*3/uL 3.6 - 10.7 10*3/uL [facility] CBC WITH AUTO DIFFERENTIALon 08-17-2024 Basophils (Bld) [#/Vol] 0.0 10*3/uL Normal 0.0-0.2 [facility] Comment on above: Performed By: #### L [id number] ####Textile Engineer: MARY SOTELO ([id number])[address] Basophils/100 WBC (Bld) 0.2 % Normal 0.0-2.0 [facility] Comment on above: Performed By: #### L [id number] ####Textile Engineer: MARY SOTELO ([phone])[address] Eosinophils (Bld) [#/Vol] 0.1 10*3/uL Normal 0.0-0.5 [facility] Comment on above: Performed By: #### L [id number] ####Textile Engineer: MARY SOTELO ([id number])[facility])[address] [place] [address] Eosinophils/100 WBC (Bld) 2.6 % Normal 0.0-6.0 [facility] Comment on above: Performed By: #### L [id number] ####Textile Engineer: MARY SOTELO ([phone])[facility])[address] [place] [address] Erythrocyte distribution width (RBC) [Ratio] 15.8 % High 11.5-15.0 [facility] Comment on above: Performed By: #### L [id number] ####Textile Engineer: MARY SOTELO ([id number])[facility])[address] [place] [address] Hematocrit (Bld) [Volume fraction] 28.7 % Low 35.0-47.0 [facility] Comment on above: Performed By: #### L [id number] ####Textile Engineer: MARY SOTELO ([id number])[facility])[address] [place] [address] Hemoglobin (Bld) [Mass/Vol] 9.1 g/dL Low 11.7-16.0 [facility] Comment on above: Performed By: #### L [id number] ####Textile Engineer: MARY SOTELO ([phone])[facility])[address] [place] [address] IMMATURE GRANS % 0.4 % Normal 0.0-2.0 [facility] Comment on above: Performed By: #### L [id number] ####Textile Engineer: MARY SOTELO ([phone])[facility])[address] [place] [address] IMMATURE GRANS ABSOLUTE 0.0 10*3/uL Normal <0.1 [facility] Comment on above: Performed By: #### L [id number] ####Textile Engineer: MARY SOTELO ([phone])[facility])[address] [place] [address] [place] IPF 4 Normal [facility] Comment on above: Performed By: #### L [id number] ####Textile Engineer: MARY SOTELO ([phone])[facility])[address] [place] [address] Lymphocytes (Bld) [#/Vol] 0.7 10*3/uL Low 1.0-4.3 [facility] Comment on above: Performed By: #### L [id number] ####Textile Engineer: MARY SOTELO ([id number])[address] Lymphocytes/100 WBC (Bld) 15.7 % Normal 15.0-45.0 [facility] Comment on above: Performed By: #### L [id number] ####Textile Engineer: MARY SOTELO ([phone])[facility])[address] [place] [address] MCH (RBC) [Entitic mass] 29.1 pg Normal 26.0-34.0 [facility] Comment on above: Performed By: #### L [id number] ####Textile Engineer: MARY SOTELO ([id number])[address] MCHC 31.7 % Normal 30.5-36.0 [facility] Comment on above: Performed By: #### L [id number] ####Textile Engineer: MARY SOTELO ([id number])[facility])[address] [place] [address] MCV (RBC) [Entitic vol] 91.7 fL Normal 77.0-99.0 [facility] Comment on above: Performed By: #### L [id number] ####Textile Engineer: MARY SOTELO ([id number])[facility])[address] [place] [address] Monocytes (Bld) [#/Vol] 0.3 10*3/uL Normal 0.0-0.9 [facility] Comment on above: Performed By: #### L [id number] ####Textile Engineer: MARY SOTELO ([id number])[facility] ([facility])[address] [place] [address] Monocytes/100 WBC (Bld) 6.8 % Normal 5.0-13.0 [facility] Comment on above: Performed By: #### L [id number] ####Textile Engineer: MARY SOTELO ([id number])[facility] ([facility])[address] [place] [address] NEUTROPHILS ABSOLUTE 3.4 10*3/uL Normal 1.8-7.5 [facility] Comment on above: Performed By: #### L [id number] ####Textile Engineer: MARY SOTELO ([id number])[facility] ([facility])[address] [place] [address] Neutrophils/100 WBC (Bld) 74.3 % Normal 38.0-82.0 [facility] Comment on above: Performed By: #### L [id number] ####Textile Engineer: MARY SOTELO ([phone])[facility] ([facility])[address] [place] [address] NRBC 0.0 /100 WBCs Normal 0.0-2.0 [facility] Comment on above: Performed By: #### L [id number] ####Textile Engineer: MARY SOTELO ([id number])[facility] ([facility])[address] [place] [address] Platelet mean volume (Bld) [Entitic vol] 10.7 fL Normal 9.0-12.7 [facility] Comment on above: Performed By: #### L [id number] ####Textile Engineer: MARY SOTELO ([id number])[facility] ([facility])[address] [place] [address] Platelets (Bld) [#/Vol] 105 10*3/uL Low 140-440 [facility] Comment on above: Performed By: #### L [id number] ####Textile Engineer: MARY SOTELO ([phone])[facility])[address] [place] [address] RBC (Bld) [#/Vol] 3.13 10*6/uL Low 3.80-5.20 [facility] Comment on above: Performed By: #### L [id number] ####Textile Engineer: MARY SOTELO ([phone])[facility])[address] [place] [address] WBC (Bld) [#/Vol] 4.5 10*3/uL Normal 3.6-10.7 [facility] Comment on above: Performed By: #### L [id number] ####Textile Engineer: MARY SOTELO ([phone])[address] Calcium.ionized [Moles/Vol]o n 08-17-2024 Calcium.ionized (Bld) [Moles/Vol] 3.8 mg/dL Low 4.30 - 5.20 mg/dL [facility] Interpretation and review of laboratory results Abnormal [facility] PH, IONIZED CALCIUM 7.39 7.31 - 7.46 [facility] IDNon 08-17-2024 IDN Normal [facility] - Chemistry and C hemistry - challengeon 08-17-2024 Glucose [Mass/Vol] 178 mg/dL High 70 - 100 mg/dL [facility] Glucose [Mass/Vol] 112 mg/dL High 70 - 100 mg/dL [facility] Glucose [Mass/Vol] 213 mg/dL High 70 - 100 mg/dL [facility] Glucose [Mass/Vol] 286 mg/dL High 70 - 100 mg/dL [facility] Magnesium [Mass/Vol] 2 mg/dL 1.6 - 2 .3 mg/dL [facility] Laboratory - Microbiology an d Antimicrobial susceptibilityon 08-17-2024 Bacteria identified Cx Nom (Bld) No growth at 5 days [facility] MAGNESIUMon 08-17-2024 Magnesium [Mass/Vol] 2.0 mg/dL Normal 1.6-2.3 [facility] Comment on above: Performed By: #### L AB103, [id number], LAB15 ####Textile Engineer: MARY SOTELO ([phone])[facility])[address] [place] [address] No Panel Informationon 08-17 Interpretation and review of laboratory results Abnormal [facility] Interpretation and review of laboratory results Abnormal [facility] Interpretation and review of laboratory results Abnormal [facility] Interpretation and review of laboratory results Abnormal [facility] Interpretation and review of laboratory results Normal [facility] PHOSPHORUSon 08-17-2024 Phosphate [Mass/Vol] 2.8 mg/dL Normal 2.5-4.5 [facility] Comment on above: Performed By: #### L AB103, [id number], LAB15 ####Textile Engineer: MARY SOTELO ([id number])[facility] ([facility])[address] [place] [address] Phosphate [Moles/Vol]on 08-03 Phosphate [Mass/Vol] 2.8 mg/dL 2.5 - 4 .5 mg/dL [facility] Progress Noteon 08-17-[address] [facility] Progress Note Normal [facility] Progress Note Normal [facility] Progress Note Normal [facility] BASIC METABOLIC PANELon 08-03 Anion gap [Moles/Vol] 6 mmol/L Normal 3-[address] [facility] Comment on above: Performed By: #### L AB103, [id number], LAB15 ####Textile Engineer: MARY SOTELO ([id number])[facility] ([facility])[address] [place] [address] Calcium [Mass/Vol] 7.2 mg/dL Low 8.4-10.4 [facility] Comment on above: Performed By: #### L AB103, [id number], LAB15 ####Textile Engineer: MARY SOTELO ([id number])[facility])[address] [place] [address] Chloride [Moles/Vol] 98 mmol/L Normal 98-107 [facility] Comment on above: Performed By: #### L AB103, [id number], LAB15 ####Textile Engineer: MARY SOTELO ([phone])[facility])[address] [place] [address] CO2 [Moles/Vol] 27 mmol/L Normal 22-30 [facility] Comment on above: Performed By: #### L AB103, [id number], LAB15 ####Textile Engineer: MARY SOTELO ([phone])[facility])[address] [place] [address] Creatinine [Mass/Vol] 3.90 mg/dL High 0.52-1.[address] [facility] Comment on above: Performed By: #### L AB103, [id number], LAB15 ####Textile Engineer: MARY SOTELO ([phone])[facility])[address] [place] [address] GLOMERULAR FILTRATION RATE ML/MIN/1.73 SQ M.PREDICTED 12.3 mL/min/1.73m*2 Low >60.0 [facility] Comment on above: Result Comment: Calc ulation based on the Chronic Kidney Disease Epidemiology Collaboration (CKD-EPI) equation refit without adjustment for race Performed By: #### L AB103, [id number], LAB15 ####Textile Engineer: MARY SOTELO ([id number])[facility] ([facility])[address] [place] [address] Glucose [Mass/Vol] 362 mg/dL High 70-100 [facility] Comment on above: Performed By: #### L AB103, [id number], LAB15 ####Textile Engineer: MARY SOTELO ([phone])[facility])[address] [place] [address] Potassium [Moles/Vol] 4.1 mmol/L Normal 3.5-5.[address] [facility] Comment on above: Performed By: #### L AB103, [id number], LAB15 ####Textile Engineer: MARY [id number])[facility] ([facility])[address] [place] [address] Sodium [Moles/Vol] 131 mmol/L Low 135-145 [facility] Comment on above: Performed By: #### L AB103, [id number], LAB15 ####Textile Engineer: MARY SOTELO ([id number])[facility] [place] [address] Urea nitrogen [Mass/Vol] 38 mg/dL High 7-17 [facility] Comment on above: Performed By: #### L AB103, [id number], LAB15 ####Textile Engineer: MARY SOTELO ([id number])[facility] [place] [address] Bacteria identified Cx Nom ( U)Ordered By: Matilde Ronquillo on 08-16-2024 Interpretation and review of laboratory results Abnormal [facility] Basic metabolic 1998 panelon 08-16-2024 Anion gap [Moles/Vol] 6 mmol/L 3 - 13 mmol/L [facility] Calcium [Mass/Vol] 7.2 mg/dL Low 8.4 - 10. 4 mg/dL [facility] Chloride [Moles/Vol] 98 mmol/L 98 - 10 7 mmol/L [facility] CO2 [Moles/Vol] 27 mmol/L 22 - 30 mmol/L [facility] Creatinine [Mass/Vol] 3.9 mg/dL High 0.52 - 1.04 mg/dL [facility] GFR/1.73 sq M.predicted (S/P/Bld) [Vol rate/Area] 12.3 mL/min Low - PINF [facility] Glucose [Mass/Vol] 362 mg/dL High 70 - 100 mg/dL [facility] Interpretation and review of laboratory results Abnormal [facility] Potassium [Moles/Vol] 4.1 mmol/L 3.5 - 5.1 mmol/L [facility] Sodium [Moles/Vol] 131 mmol/L Low 135 - 145 mmol/L [facility] Urea nitrogen [Mass/Vol] 38 mg/dL High 7 - 17 mg/dL [facility] CALCIUM, IONIZEDon CALCIUM IONIZED 4.20 mg/dL Low 4.30-5.20 [facility] [facility] Comment on above: Performed By: #### L [id number] ####Textile Engineer: MARY SOTELO ([id number])[facility] ([facility])[address] [place] [address] PH, IONIZED CALCIUM 7.16 Low 7.31-7.46 [facility] Comment on above: Performed By: #### L [id number] ####Textile Engineer: MARY SOTELO ([phone])[facility] ([facility])[address] [place] [address] CARECOORDon 08-16-2024 CARECOORD Normal [facility] CBC W Auto Differential pane l (Bld)on 08-16-2024 Basophils (Bld) [#/Vol] 0 10*3/uL 0.0 - 0.2 10*3/uL [facility] Basophils/100 WBC (Bld) 0.2 % 0.0 - 2.0 % [facility] Eosinophils (Bld) [#/Vol] 0 10*3/uL 0.0 - 0.5 10*3/uL [facility] Eosinophils/100 WBC (Bld) 0.4 % 0.0 - 6.0 % [facility] [employer] Erythrocyte distribution width (RBC) [Ratio] 15.8 % High 11.5 - 15.0 % [facility] Hematocrit (Bld) [Volume fraction] 30 % Low 35.0 - 47.0 % [facility] [employer] Hemoglobin (Bld) [Mass/Vol] 9.7 g/dL Low 11.7 - 16.0 g/dL [facility] [employer] Immature granulocytes (Bld) [#/Vol] 0 10*3/uL NINF - 0.1 10*3/uL [facility] [employer] Immature granulocytes/100 WBC (Bld) 0.6 % 0.0 - 2.0 % [facility] [employer] Interpretation and review of laboratory results Abnormal [facility] [employer] Lymphocytes (Bld) [#/Vol] 0.5 10*3/uL Low 1.0 - 4.3 10*3/uL [facility] Lymphocytes/100 WBC (Bld) 10.1 % Low 15.0 - 45.0 % [facility] [employer] MCH (RBC) [Entitic mass] 29.6 pg 26.0 - 34.0 pg [facility] [employer] MCHC (RBC) [Mass/Vol] 32.3 % 30.5 - 36.0 % [facility] [employer] MCV (RBC) [Entitic vol] 91.5 fL 77.0 - 99.0 fL [facility] Monocytes (Bld) [#/Vol] 0.3 10*3/uL 0.0 - 0.9 10*3/uL [facility] Monocytes/100 WBC (Bld) 6.9 % 5.0 - 13.0 % [facility] Neutrophils (Bld) [#/Vol] 3.9 10*3/uL 1.8 - 7.5 10*3/uL [facility] Neutrophils/100 WBC (Bld) 81.8 % 38.0 - 82.0 % [facility] Nucleated RBC/100 WBC (Bld) [Ratio] 0 % [facility] Platelet mean volume (Bld) [Entitic vol] 10.2 fL 9.0 - 12.7 fL [facility] Platelets (Bld) [#/Vol] 104 10*3/uL Low 140 - 440 10*3/uL [facility] RBC (Bld) [#/Vol] 3.28 10*6/uL Low 3.80 - 5.2 0 10*6/uL [facility] WBC (Bld) [#/Vol] 4.8 10*3/uL 3.6 - 10.7 10*3/uL [facility] CBC WITH AUTO DIFFERENTIALon 08-16-2024 Basophils (Bld) [#/Vol] 0.0 10*3/uL Normal 0.0-0.2 [facility] Comment on above: Performed By: #### L [id number] ####Textile Engineer: MARY SOTELO ([phone])[address] Basophils/100 WBC (Bld) 0.2 % Normal 0.0-2.0 [facility] [employer] [facility] Comment on above: Performed By: #### L [id number] ####Textile Engineer: MARY SOTELO ([id number])[facility])[address] [place] [address] Eosinophils (Bld) [#/Vol] 0.0 10*3/uL Normal 0.0-0.5 [facility] Comment on above: Performed By: #### L [id number] ####Textile Engineer: MARY SOTELO ([phone])[facility])[address] [place] [address] Eosinophils/100 WBC (Bld) 0.4 % Normal 0.0-6.0 [facility] Comment on above: Performed By: #### L [id number] ####Textile Engineer: MARY SOTELO ([id number])[facility])[address] [place] [address] Erythrocyte distribution width (RBC) [Ratio] 15.8 % High 11.5-15.0 [facility] Comment on above: Performed By: #### L [id number] ####Textile Engineer: MARY SOTELO ([phone])[address] Hematocrit (Bld) [Volume fraction] 30.0 % Low 35.0-47.0 [facility] Comment on above: Performed By: #### L [id number] ####Textile Engineer: MARY SOTELO ([id number])[address] Hemoglobin (Bld) [Mass/Vol] 9.7 g/dL Low 11.7-16.0 [facility] Comment on above: Performed By: #### L [id number] ####Textile Engineer: MARY SOTELO ([id number])[address] IMMATURE GRANS % 0.6 % Normal 0.0-2.0 [facility] Comment on above: Performed By: #### L [id number] ####Textile Engineer: MARY SOTELO ([id number])[address] IMMATURE GRANS ABSOLUTE 0.0 10*3/uL Normal <0.1 [facility] Comment on above: Performed By: #### L [id number] ####Textile Engineer: MARY SOTELO ([id number])[facility])[address] [place] [address] Lymphocytes (Bld) [#/Vol] 0.5 10*3/uL Low 1.0-4.3 [facility] Comment on above: Performed By: #### L [id number] ####Textile Engineer: MARY SOTELO ([phone])[facility])[address] [place] [address] Lymphocytes/100 WBC (Bld) 10.1 % Low 15.0-45.0 [facility] Comment on above: Performed By: #### L [id number] ####Textile Engineer: MARY SOTELO ([id number])[address] MCH (RBC) [Entitic mass] 29.6 pg Normal 26.0-34.0 [facility] Comment on above: Performed By: #### L [id number] ####Textile Engineer: MARY SOTELO ([phone])[address] MCHC 32.3 % Normal 30.5-36.0 [facility] Comment on above: Performed By: #### L [id number] ####Textile Engineer: MARY SOTELO ([id number])[address] MCV (RBC) [Entitic vol] 91.5 fL Normal 77.0-99.0 [facility] Comment on above: Performed By: #### L [id number] ####Textile Engineer: MARY SOTELO ([phone])[facility])[address] [place] [address] Monocytes (Bld) [#/Vol] 0.3 10*3/uL Normal 0.0-0.9 [facility] Comment on above: Performed By: #### L [id number] ####Textile Engineer: MARY SOTELO ([phone])[facility])[address] [place] [address] Monocytes/100 WBC (Bld) 6.9 % Normal 5.0-13.0 [facility] Comment on above: Performed By: #### L [id number] ####Textile Engineer: MARY SOTELO ([id number])[facility] ([facility])[address] [place] [address] NEUTROPHILS ABSOLUTE 3.9 10*3/uL Normal 1.8-7.5 [facility] Comment on above: Performed By: #### L [id number] ####Textile Engineer: MARY SOTELO ([phone])[facility])[address] [place] [address] Neutrophils/100 WBC (Bld) 81.8 % Normal 38.0-82.0 [facility] Comment on above: Performed By: #### L [id number] ####Textile Engineer: MARY SOTELO ([id number])[facility] ([facility])[address] [place] [address] NRBC 0.0 /100 WBCs Normal 0.0-2.0 [facility] Comment on above: Performed By: #### L [id number] ####Textile Engineer: MARY SOTELO ([id number])[facility])[address] [place] [address] Platelet mean volume (Bld) [Entitic vol] 10.2 fL Normal 9.0-12.7 [facility] Comment on above: Performed By: #### L [id number] ####Textile Engineer: MARY SOTELO ([id number])[facility] ([facility])[address] [place] [address] [place] Platelets (Bld) [#/Vol] 104 10*3/uL Low 140-440 [facility] Comment on above: Performed By: #### L [id number] ####Textile Engineer: MARY SOTELO ([id number])[facility] ([facility])[address] [place] [address] RBC (Bld) [#/Vol] 3.28 10*6/uL Low 3.80-5.20 [facility] Comment on above: Performed By: #### L [id number] ####Textile Engineer: MARY SOTELO ([phone])[facility])[address] [place] [address] WBC (Bld) [#/Vol] 4.8 10*3/uL Normal 3.6-10.7 [facility] Comment on above: Performed By: #### L [id number] ####Textile Engineer: MARY SOTELO ([id number])[facility] ([facility])[address] [place] [address] Calcium.ionized [Moles/Vol]o n 08-16-2024 Calcium.ionized (Bld) [Moles/Vol] 4.2 mg/dL Low 4.30 - 5.20 mg/dL [facility] Interpretation and review of laboratory results Abnormal [facility] PH, IONIZED CALCIUM 7.16 Low 7.31 - 7.46 [facility] IDNon 08-16-2024 IDN Normal [facility] Laboratory - Chemistry and C hemistry - challengeon 08-16-2024 Glucose [Mass/Vol] 174 mg/dL High 70 - 100 mg/dL [facility] Glucose [Mass/Vol] 163 mg/dL High 70 - 100 mg/dL [facility] Glucose [Mass/Vol] 350 mg/dL High 70 - 100 mg/dL [facility] Glucose [Mass/Vol] 405 mg/dL High 70 - 100 mg/dL [facility] Magnesium [Mass/Vol] 2.2 mg/dL 1.6 - 2 .3 mg/dL [facility] Laboratory - Microbiology an d Antimicrobial susceptibilityOrdered By: Matilde Ronquillo on 08-16-2024 Bacteria identified Cx Nom (U) >100,000 CFU/mL Abbi albicans Abnormal [facility] MAGNESIUMon 08-16-2024 Magnesium [Mass/Vol] 2.2 mg/dL Normal 1.6-2.3 [facility] Comment on above: Performed By: #### L [id number], [id number], [id number] ####Textile Engineer: MARY SOTELO ([id number])[facility] ([facility])[address] [place] [address] [place] No Panel Informationon 08-16 Interpretation and review of laboratory results Abnormal [facility] Interpretation and review of laboratory results Abnormal [facility] Interpretation and review of laboratory results Abnormal [facility] Interpretation and review of laboratory results Abnormal [facility] Interpretation and review of laboratory results Normal [facility] Nursing Noteon 08-16-2024 Nursing Note Normal [facility] PHOSPHORUSon 08-16-2024 Phosphate [Mass/Vol] 4.5 mg/dL Normal 2.5-4.5 [facility] Comment on above: Performed By: #### L [id number], [id number], LAB15 ####Textile Engineer: MARY SOTELO ([phone])[facility])[address] [place] [address] [place] Phosphate [Moles/Vol]on 08-03 Phosphate [Mass/Vol] 4.5 mg/dL 2.5 - 4 .5 mg/dL [facility] Progress Noteon 08-16-[address] [facility] Progress Note [facility] Progress Note Normal [facility] Progress Note Normal [facility] BASIC METABOLIC PANELon 08-03 Anion gap [Moles/Vol] 8 mmol/L Normal 3-13 [facility] Comment on above: Performed By: #### L [id number], [id number], LAB15 ####Textile Engineer: MARY SOTELO ([id number])[facility])[address] [place] [address] [place] Calcium [Mass/Vol] 7.1 mg/dL Low 8.4-10.4 [facility] Comment on above: Performed By: #### L [id number], [id number], LAB15 ####Textile Engineer: MARY SOTELO ([id number])[facility])[address] [place] [address] [place] Chloride [Moles/Vol] 100 mmol/L Normal 98-107 [facility] Comment on above: Performed By: #### L AB113, [id number], LAB15 ####Textile Engineer: MARY SOTELO ([id number])[facility] [place] [address] CO2 [Moles/Vol] 22 mmol/L Normal 22-30 [facility] Comment on above: Performed By: #### L AB113, [id number], LAB15 ####Textile Engineer: MARY SOTELO ([id number])[facility] ([facility])[address] [place] [address] Creatinine [Mass/Vol] 2.97 mg/dL High 0.52-1.[address] [facility] Comment on above: Performed By: #### Dora AB113, [id number], LAB15 ####Textile Engineer: MARY SOTELO ([id number])[facility] ([facility])[address] [place] [address] [place] GLOMERULAR FILTRATION RATE ML/MIN/1.73 SQ M.PREDICTED 17.1 mL/min/1.73m*2 Low >60.0 [facility] Comment on above: Result Comment: Calc ulation based on the Chronic Kidney Disease Epidemiology Collaboration (CKD-EPI) equation refit without adjustment for race Performed By: #### Dora ABGabbie, [id number], LAB15 ####Textile Engineer: MARY SOTELO ([id number])[facility] ([facility])[address] [place] [address] Glucose [Mass/Vol] 270 mg/dL High 70-100 [facility] Comment on above: Performed By: #### Dora AB113, [id number], LAB15 ####Textile Engineer: MARY SOTELO ([id number])[facility] [place] [address] [place] Potassium [Moles/Vol] 3.9 mmol/L Normal 3.5-5.[address] [facility] Comment on above: Performed By: #### L AB113, [id number], LAB15 ####Textile Engineer: MARY SOTELO ([id number])[facility] ([facility])[address] [place] [address] [place] Sodium [Moles/Vol] 130 mmol/L Low 135-145 [facility] Comment on above: Performed By: #### L AB113, [id number], LAB15 ####Textile Engineer: MARY SOTELO ([phone])[facility] ([facility])[address] [place] [address] Urea nitrogen [Mass/Vol] 27 mg/dL High 7-17 [facility] Comment on above: Performed By: #### L AB113, [id number], LAB15 ####Textile Engineer: MARY SOTELO ([id number])[facility] [place] [address] Bacteria identified Cx Nom ( Bld)Ordered By: Kaitlyn Corona on 08-15-2024 Interpretation and review of laboratory results Abnormal [facility] Basic metabolic 1998 panelOr dered By: Deirdre Maciel on 08-15-2024 Anion gap [Moles/Vol] 8 mmol/L 3 - 13 mmol/L [facility] Calcium [Mass/Vol] 7.1 mg/dL Low 8.4 - 10. 4 mg/dL [facility] Chloride [Moles/Vol] 100 mmol/L 98 - 10 7 mmol/L [facility] CO2 [Moles/Vol] 22 mmol/L 22 - 30 mmol/L [facility] Creatinine [Mass/Vol] 2.97 mg/dL High 0.52 - 1.04 mg/dL [facility] GFR/1.73 sq M.predicted (S/P/Bld) [Vol rate/Area] 17.1 mL/min Low - PINF [facility] Glucose [Mass/Vol] 270 mg/dL High 70 - 100 mg/dL [facility] Interpretation and review of laboratory results Abnormal [facility] Potassium [Moles/Vol] 3.9 mmol/L 3.5 - 5.1 mmol/L [facility] Sodium [Moles/Vol] 130 mmol/L Low 135 - 145 mmol/L [facility] Urea nitrogen [Mass/Vol] 27 mg/dL High 7 - 17 mg/dL [facility] CALCIUM, IONIZEDon 4 CALCIUM IONIZED 3.90 mg/dL Low 4.30-5.20 [facility] Comment on above: Performed By: #### L [id number] ####Textile Engineer: MARY SOTELO ([id number])[facility] ([facility])[address] [place] [address] PH, IONIZED CALCIUM 7.29 Low 7.31-7.46 [facility] Comment on above: Performed By: #### L [id number] ####Textile Engineer: MARY SOTELO ([id number])[facility] ([facility])[address] [place] [address] CBC W Auto Differential pane l (Bld)Ordered By: Olamide Orozco on 08-15-2024 Basophils (Bld) [#/Vol] 0 10*3/uL 0.0 - 0.2 10*3/uL [employer] Basophils/100 WBC (Bld) 0.2 % 0.0 - 2.0 % [facility] [employer] Eosinophils (Bld) [#/Vol] 0 10*3/uL 0.0 - 0.5 10*3/uL [facility] Eosinophils/100 WBC (Bld) 0.6 % 0.0 - 6.0 % [facility] [employer] Erythrocyte distribution width (RBC) [Ratio] 15.9 % High 11.5 - 15.0 % [facility] [employer] Hematocrit (Bld) [Volume fraction] 30.3 % Low 35.0 - 47.0 % [facility] [employer] Hemoglobin (Bld) [Mass/Vol] 9.5 g/dL Low 11.7 - 16.0 g/dL [facility] [employer] Immature granulocytes (Bld) [#/Vol] 0 10*3/uL NINF - 0.1 10*3/uL [facility] [employer] Immature granulocytes/100 WBC (Bld) 0.8 % 0.0 - 2.0 % [facility] [employer] Interpretation and review of laboratory results Abnormal [facility] IPF 4 [facility] Lymphocytes (Bld) [#/Vol] 0.6 10*3/uL Low 1.0 - 4.3 10*3/uL [facility] Lymphocytes/100 WBC (Bld) 12.7 % Low 15.0 - 45.0 % [facility] [employer] MCH (RBC) [Entitic mass] 29 pg 26.0 - 34.0 pg [facility] MCHC (RBC) [Mass/Vol] 31.4 % 30.5 - 36.0 % [facility] MCV (RBC) [Entitic vol] 92.4 fL 77.0 - 99.0 fL [facility] Monocytes (Bld) [#/Vol] 0.4 10*3/uL 0.0 - 0.9 10*3/uL [facility] Monocytes/100 WBC (Bld) 7.3 % 5.0 - 13.0 % [facility] Neutrophils (Bld) [#/Vol] 3.9 10*3/uL 1.8 - 7.5 10*3/uL [facility] Neutrophils/100 WBC (Bld) 78.4 % 38.0 - 82.0 % [facility] Nucleated RBC/100 WBC (Bld) [Ratio] 0 % [facility] [employer] Platelet mean volume (Bld) [Entitic vol] 10.1 fL 9.0 - 12.7 fL [facility] Platelets (Bld) [#/Vol] 90 10*3/uL Low 140 - 440 10*3/uL [facility] RBC (Bld) [#/Vol] 3.28 10*6/uL Low 3.80 - 5.2 0 10*6/uL [facility] WBC (Bld) [#/Vol] 5 10*3/uL 3.6 - 10.7 10*3/uL [facility] CBC WITH AUTO DIFFERENTIALon 08-15-2024 Basophils (Bld) [#/Vol] 0.0 10*3/uL Normal 0.0-0.2 [facility] Comment on above: Performed By: #### L [id number] ####Textile Engineer: MARY SOTELO ([id number])[address] Basophils/100 WBC (Bld) 0.2 % Normal 0.0-2.0 [facility] Comment on above: Performed By: #### L [id number] ####Textile Engineer: MARY SOTELO ([phone])[address] Eosinophils (Bld) [#/Vol] 0.0 10*3/uL Normal 0.0-0.5 [facility] Comment on above: Performed By: #### L [id number] ####Textile Engineer: MARY SOTELO ([id number])[facility])[address] [place] [address] Eosinophils/100 WBC (Bld) 0.6 % Normal 0.0-6.0 [facility] Comment on above: Performed By: #### L [id number] ####Textile Engineer: MARY SOTELO ([id number])[facility])[address] [place] [address] Erythrocyte distribution width (RBC) [Ratio] 15.9 % High 11.5-15.0 [facility] Comment on above: Performed By: #### L [id number] ####Textile Engineer: MARY SOTELO ([id number])[address] Hematocrit (Bld) [Volume fraction] 30.3 % Low 35.0-47.0 [facility] Comment on above: Performed By: #### L [id number] ####Textile Engineer: MARY SOTELO ([phone])[facility])[address] [place] [address] Hemoglobin (Bld) [Mass/Vol] 9.5 g/dL Low 11.7-16.0 [facility] Comment on above: Performed By: #### L [id number] ####Textile Engineer: MARY SOTELO ([phone])[facility])[address] [place] [address] IMMATURE GRANS % 0.8 % Normal 0.0-2.0 [facility] Comment on above: Performed By: #### L [id number] ####Textile Engineer: MARY SOTELO ([phone])[facility])[address] [place] [address] IMMATURE GRANS ABSOLUTE 0.0 10*3/uL Normal <0.1 [facility] Comment on above: Performed By: #### L [id number] ####Textile Engineer: MARY SOTELO ([phone])[facility])[address] [place] [address] [place] IPF 4 Normal [facility] Comment on above: Performed By: #### L [id number] ####Textile Engineer: MARY SOTELO ([phone])[facility])[address] [place] [address] Lymphocytes (Bld) [#/Vol] 0.6 10*3/uL Low 1.0-4.3 [facility] Comment on above: Performed By: #### L [id number] ####Textile Engineer: MARY SOTELO ([phone])[facility])[address] [place] [address] Lymphocytes/100 WBC (Bld) 12.7 % Low 15.0-45.0 [facility] Comment on above: Performed By: #### L [id number] ####Textile Engineer: MARY SOTELO ([phone])[facility])[address] [place] [address] MCH (RBC) [Entitic mass] 29.0 pg Normal 26.0-34.0 [facility] Comment on above: Performed By: #### L [id number] ####Textile Engineer: MARY SOTELO ([phone])[facility])[address] [place] [address] MCHC 31.4 % Normal 30.5-36.0 [facility] Comment on above: Performed By: #### L [id number] ####Textile Engineer: MARY SOTELO ([phone])[facility])[address] [place] [address] MCV (RBC) [Entitic vol] 92.4 fL Normal 77.0-99.0 [facility] Comment on above: Performed By: #### L [id number] ####Textile Engineer: MARY SOTELO ([phone])[facility])[address] [place] [address] Monocytes (Bld) [#/Vol] 0.4 10*3/uL Normal 0.0-0.9 [facility] Comment on above: Performed By: #### L [id number] ####Textile Engineer: MARY SOTELO ([phone])[facility] ([facility])[address] [place] [address] Monocytes/100 WBC (Bld) 7.3 % Normal 5.0-13.0 [facility] Comment on above: Performed By: #### L [id number] ####Textile Engineer: MARY SOTELO ([id number])[facility] ([facility])[address] [place] [address] NEUTROPHILS ABSOLUTE 3.9 10*3/uL Normal 1.8-7.5 [facility] Comment on above: Performed By: #### L [id number] ####Textile Engineer: MARY SOTELO ([phone])[facility] ([facility])[address] [place] [address] Neutrophils/100 WBC (Bld) 78.4 % Normal 38.0-82.0 [facility] Comment on above: Performed By: #### L [id number] ####Textile Engineer: MARY SOTELO ([id number])[facility] ([facility])[address] [place] [address] NRBC 0.0 /100 WBCs Normal 0.0-2.0 [facility] Comment on above: Performed By: #### L [id number] ####Textile Engineer: MARY SOTELO ([phone])[facility] ([facility])[address] [place] [address] Platelet mean volume (Bld) [Entitic vol] 10.1 fL Normal 9.0-12.7 [facility] Comment on above: Performed By: #### L [id number] ####Textile Engineer: MARY SOTELO ([id number])[facility] ([facility])[address] [place] [address] [place] Platelets (Bld) [#/Vol] 90 10*3/uL Low 140-440 [facility] Comment on above: Performed By: #### L [id number] ####Textile Engineer: MARY SOTELO ([id number])[facility] ([facility])[address] [place] [address] RBC (Bld) [#/Vol] 3.28 10*6/uL Low 3.80-5.20 [facility] Comment on above: Performed By: #### L [id number] ####Textile Engineer: MARY SOTELO ([id number])[facility] ([facility])[address] [place] [address] WBC (Bld) [#/Vol] 5.0 10*3/uL Normal 3.6-10.7 [facility] Comment on above: Performed By: #### L [id number] ####Textile Engineer: MARY SOTELO ([id number])[facility] ([facility])[address] [place] [address] Calcium.ionized [Moles/Vol]O rdered By: Nicole Lakhani on 08-15-2024 Calcium.ionized (Bld) [Moles/Vol] 3.9 mg/dL Low 4.30 - 5.20 mg/dL [facility] Interpretation and review of laboratory results Abnormal [facility] PH, IONIZED CALCIUM 7.29 Low 7.31 - 7.46 [facility] IDNon 08-15-2024 IDN Normal [facility] - Chemistry and C hemistry - challengeon 08-15-2024 Glucose [Mass/Vol] 344 mg/dL High 70 - 100 mg/dL [facility] Glucose [Mass/Vol] 368 mg/dL High 70 - 100 mg/dL [facility] Glucose [Mass/Vol] 340 mg/dL High 70 - 100 mg/dL [facility] Glucose [Mass/Vol] 302 mg/dL High 70 - 100 mg/dL [facility] Magnesium [Mass/Vol] 2.1 mg/dL 1.6 - 2 .3 mg/dL [facility] Laboratory - Microbiology an d Antimicrobial susceptibilityOrdered By: Kaitlyn Corona on 08-15-2024 Bacteria identified Cx Nom (Bld) Staphylococcus epidermidis Critically abnormal [facility] Laboratory - Miscellaneous t estson 08-15-2024 Service comment (Unsp spec) [Interp] 0.052 [facility] - Serology - non- microon 08-15-2024 Heparin induced platelet Ab Ql (S) Negative Negative [facility] MAGNESIUMon 08-15-2024 Magnesium [Mass/Vol] 2.1 mg/dL Normal 1.6-2.3 [facility] Comment on above: Performed By: #### L AB113, [id number], LAB15 ####Textile Engineer: MARY SOTELO ([phone])[facility])[address] [place] [address] No Panel Informationon 08-15 Interpretation and review of laboratory results Abnormal [facility] Interpretation and review of laboratory results Abnormal [facility] Interpretation and review of laboratory results Abnormal [facility] Interpretation and review of laboratory results Abnormal [facility] Interpretation and review of laboratory results Normal [facility] PHOSPHORUSon 08-15-2024 Phosphate [Mass/Vol] 4.5 mg/dL Normal 2.5-4.5 [facility] Comment on above: Performed By: #### Dora ABGabbie, [id number], LAB15 ####Textile Engineer: MARY SOTELO ([id number])[facility] ([facility])[address] [place] [address] [place] Phosphate [Moles/Vol]on 08-03 Phosphate [Mass/Vol] 4.5 mg/dL 2.5 - 4 .5 mg/dL [facility] Progress Noteon 08-15-[address] [facility] Progress Note [facility] BASIC METABOLIC PANELon 08-03 Anion gap [Moles/Vol] 10 mmol/L Normal - [facility] Comment on above: Performed By: #### L AB113, [id number], LAB15 ####Textile Engineer: MARY SOTELO ([phone])[facility] ([facility])[address] [place] [address] Calcium [Mass/Vol] 6.8 mg/dL Low 8.4-10.4 [facility] Comment on above: Performed By: #### L AB113, [id number], LAB15 ####Textile Engineer: MARY SOTELO ([phone])[facility] ([facility])[address] [place] [address] Chloride [Moles/Vol] 96 mmol/L Low 98-107 [facility] Comment on above: Performed By: #### L AB113, [id number], LAB15 ####Textile Engineer: MARY SOTELO ([id number])[facility] [place] [address] CO2 [Moles/Vol] 25 mmol/L Normal 22-30 [facility] Comment on above: Performed By: #### L AB113, [id number], LAB15 ####Textile Engineer: MARY SOTELO ([phone])[facility])[address] [place] [address] Creatinine [Mass/Vol] 1.91 mg/dL High 0.52-1.[address] [facility] Comment on above: Performed By: #### L AB113, [id number], LAB15 ####Textile Engineer: MARY SOTELO ([phone])[facility] ([facility])[address] [place] [address] GLOMERULAR FILTRATION RATE ML/MIN/1.73 SQ M.PREDICTED 29.0 mL/min/1.73m*2 Low >60.0 [facility] Comment on above: Result Comment: Calc ulation based on the Chronic Kidney Disease Epidemiology Collaboration (CKD-EPI) equation refit without adjustment for race Performed By: #### L AB113, [id number], LAB15 ####Textile Engineer: MARY SOTELO ([id number])[facility] ([facility])[address] [place] [address] Glucose [Mass/Vol] 361 mg/dL High 70-100 [facility] Comment on above: Performed By: #### L AB113, [id number], LAB15 ####Textile Engineer: MARY SOTELO ([phone])[facility])[address] [place] [address] Potassium [Moles/Vol] 3.5 mmol/L Normal 3.5-5.[address] [facility] Comment on above: Performed By: #### L AB113, [id number], LAB15 ####Textile Engineer: MARY SOTELO ([id number])[facility] ([facility])[address] [place] [address] Sodium [Moles/Vol] 130 mmol/L Low 135-145 [facility] Comment on above: Performed By: #### L AB113, [id number], LAB15 ####Textile Engineer: MARY SOTELO ([phone])[facility] ([facility])[address] [place] [address] Urea nitrogen [Mass/Vol] 18 mg/dL High 7-17 [facility] Comment on above: Performed By: #### L AB113, [id number], LAB15 ####Textile Engineer: MARY SOTELO ([phone])[facility] ([facility])[address] [place] [address] BLOOD CULTUREon 08-14-2024 Bacteria identified Cx Nom (Bld) Normal [facility] Comment on above: Performed By: #### L [id number] ####Textile Engineer: MARY SOTELO ([id number])[facility] ([facility])[address] [place] [address] Bacteria identified Cx Nom (Bld) Normal [facility] Comment on above: Performed By: #### L [id number] ####Textile Engineer: MARY SOTELO ([phone])[facility])[address] [place] [address] Basic metabolic 1998 panelon 08-14-2024 Anion gap [Moles/Vol] 10 mmol/L 3 - 13 mmol/L [facility] Calcium [Mass/Vol] 6.8 mg/dL Low 8.4 - 10. 4 mg/dL [facility] Chloride [Moles/Vol] 96 mmol/L Low 98 - 10 7 mmol/L [facility] CO2 [Moles/Vol] 25 mmol/L 22 - 30 mmol/L [facility] Creatinine [Mass/Vol] 1.91 mg/dL High 0.52 - 1.04 mg/dL [facility] GFR/1.73 sq M.predicted (S/P/Bld) [Vol rate/Area] 29 mL/min Low - PINF [facility] Glucose [Mass/Vol] 361 mg/dL High 70 - 100 mg/dL [facility] Interpretation and review of laboratory results Abnormal [facility] Potassium [Moles/Vol] 3.5 mmol/L 3.5 - 5.1 mmol/L [facility] Sodium [Moles/Vol] 130 mmol/L Low 135 - 145 mmol/L [facility] Urea nitrogen [Mass/Vol] 18 mg/dL High 7 - 17 mg/dL [facility] CBC W Auto Differential pane l (Bld)Ordered By: Wei Adamson on 08-14-2024 Basophils (Bld) [#/Vol] 0 10*3/uL 0.0 - 0.2 10*3/uL [facility] Basophils/100 WBC (Bld) 0.2 % 0.0 - 2.0 % [facility] Eosinophils (Bld) [#/Vol] 0 10*3/uL 0.0 - 0.5 10*3/uL [facility] Eosinophils/100 WBC (Bld) 0.2 % 0.0 - 6.0 % [facility] Erythrocyte distribution width (RBC) [Ratio] 16.4 % High 11.5 - 15.0 % [facility] Hematocrit (Bld) [Volume fraction] 28.7 % Low 35.0 - 47.0 % [facility] Hemoglobin (Bld) [Mass/Vol] 9.2 g/dL Low 11.7 - 16.0 g/dL [facility] Immature granulocytes (Bld) [#/Vol] 0 10*3/uL NINF - 0.1 10*3/uL [facility] Immature granulocytes/100 WBC (Bld) 0.6 % 0.0 - 2.0 % [facility] Interpretation and review of laboratory results Abnormal [facility] IPF 4 [facility] Lymphocytes (Bld) [#/Vol] 0.7 10*3/uL Low 1.0 - 4.3 10*3/uL [facility] Lymphocytes/100 WBC (Bld) 13.6 % Low 15.0 - 45.0 % [facility] MCH (RBC) [Entitic mass] 29.2 pg 26.0 - 34.0 pg [facility] MCHC (RBC) [Mass/Vol] 32.1 % 30.5 - 36.0 % [facility] MCV (RBC) [Entitic vol] 91.1 fL 77.0 - 99.0 fL [facility] Monocytes (Bld) [#/Vol] 0.4 10*3/uL 0.0 - 0.9 10*3/uL [facility] Monocytes/100 WBC (Bld) 8 % 5.0 - 13.0 % [facility] Neutrophils (Bld) [#/Vol] 4 10*3/uL 1.8 - 7.5 10*3/uL [facility] Neutrophils/100 WBC (Bld) 77.4 % 38.0 - 82.0 % [facility] Nucleated RBC/100 WBC (Bld) [Ratio] 0 % [facility] Platelet mean volume (Bld) [Entitic vol] 10.9 fL 9.0 - 12.7 fL [facility] Platelets (Bld) [#/Vol] 79 10*3/uL Low 140 - 440 10*3/uL [facility] RBC (Bld) [#/Vol] 3.15 10*6/uL Low 3.80 - 5.2 0 10*6/uL [facility] WBC (Bld) [#/Vol] 5.2 10*3/uL 3.6 - 10.7 10*3/uL [facility] CBC WITH AUTO DIFFERENTIALon 08-14-2024 Basophils (Bld) [#/Vol] 0.0 10*3/uL Normal 0.0-0.2 [facility] Comment on above: Performed By: #### L [id number] ####Textile Engineer: MARY [id number])[address] Basophils/100 WBC (Bld) 0.2 % Normal 0.0-2.0 [facility] Comment on above: Performed By: #### L [id number] ####Textile Engineer: MARY [id number])[address] Eosinophils (Bld) [#/Vol] 0.0 10*3/uL Normal 0.0-0.5 [facility] Comment on above: Performed By: #### L [id number] ####Textile Engineer: MARY [id number])[facility])[address] [place] [address] Eosinophils/100 WBC (Bld) 0.2 % Normal 0.0-6.0 [facility] Comment on above: Performed By: #### L [id number] ####Textile Engineer: MARY SOTELO ([phone])[facility])[address] [place] [address] Erythrocyte distribution width (RBC) [Ratio] 16.4 % High 11.5-15.0 [facility] Comment on above: Performed By: #### L [id number] ####Textile Engineer: MARY SOTELO ([id number])[facility])[address] [place] [address] Hematocrit (Bld) [Volume fraction] 28.7 % Low 35.0-47.0 [facility] Comment on above: Performed By: #### L [id number] ####Textile Engineer: MARY SOTELO ([phone])[facility])[address] [place] [address] Hemoglobin (Bld) [Mass/Vol] 9.2 g/dL Low 11.7-16.0 [facility] Comment on above: Performed By: #### L [id number] ####Textile Engineer: MARY SOTELO ([phone])[facility])[address] [place] [address] IMMATURE GRANS % 0.6 % Normal 0.0-2.0 [facility] Comment on above: Performed By: #### L [id number] ####Textile Engineer: MARY SOTELO ([phone])[facility])[address] [place] [address] IMMATURE GRANS ABSOLUTE 0.0 10*3/uL Normal <0.1 [facility] Comment on above: Performed By: #### L [id number] ####Textile Engineer: MARY SOTELO ([phone])[facility])[address] [place] [address] IPF 4 Normal [facility] Comment on above: Performed By: #### L [id number] ####Textile Engineer: MARY SOTELO ([id number])[facility])[address] [place] [address] Lymphocytes (Bld) [#/Vol] 0.7 10*3/uL Low 1.0-4.3 [facility] Comment on above: Performed By: #### L [id number] ####Textile Engineer: MARY SOTELO ([phone])[facility])[address] [place] [address] Lymphocytes/100 WBC (Bld) 13.6 % Low 15.0-45.0 [facility] Comment on above: Performed By: #### L [id number] ####Textile Engineer: MARY SOTELO ([phone])[facility])[address] [place] [address] MCH (RBC) [Entitic mass] 29.2 pg Normal 26.0-34.0 [facility] Comment on above: Performed By: #### L [id number] ####Textile Engineer: MARY SOTELO ([id number])[facility])[address] [place] [address] MCHC 32.1 % Normal 30.5-36.0 [facility] Comment on above: Performed By: #### L [id number] ####Textile Engineer: MARY SOTELO ([phone])[facility])[address] [place] [address] MCV (RBC) [Entitic vol] 91.1 fL Normal 77.0-99.0 [facility] Comment on above: Performed By: #### L [id number] ####Textile Engineer: MARY SOTELO ([phone])[facility])[address] [place] [address] Monocytes (Bld) [#/Vol] 0.4 10*3/uL Normal 0.0-0.9 [facility] Comment on above: Performed By: #### L [id number] ####Textile Engineer: MARY SOTELO ([id number])[facility] ([facility])[address] [place] [address] Monocytes/100 WBC (Bld) 8.0 % Normal 5.0-13.0 [facility] Comment on above: Performed By: #### L [id number] ####Textile Engineer: MARY SOTELO ([id number])[facility] ([facility])[address] [place] [address] NEUTROPHILS ABSOLUTE 4.0 10*3/uL Normal 1.8-7.5 [facility] Comment on above: Performed By: #### L [id number] ####Textile Engineer: MARY SOTELO ([id number])[facility] ([facility])[address] [place] [address] Neutrophils/100 WBC (Bld) 77.4 % Normal 38.0-82.0 [facility] Comment on above: Performed By: #### L [id number] ####Textile Engineer: MARY SOTELO ([id number])[facility] ([facility])[address] [place] [address] NRBC 0.0 /100 WBCs Normal 0.0-2.0 [facility] Comment on above: Performed By: #### L [id number] ####Textile Engineer: MARY SOTELO ([id number])[facility] ([facility])[address] [place] [address] Platelet mean volume (Bld) [Entitic vol] 10.9 fL Normal 9.0-12.7 [facility] Comment on above: Performed By: #### L [id number] ####Textile Engineer: MARY SOTELO ([id number])[facility] ([facility])[address] [place] [address] [place] Platelets (Bld) [#/Vol] 79 10*3/uL Low 140-440 [facility] Comment on above: Performed By: #### L [id number] ####Textile Engineer: AMRY SOTELO ([phone])[facility] ([facility])[address] [place] [address] [place] RBC (Bld) [#/Vol] 3.15 10*6/uL Low 3.80-5.20 [facility] Comment on above: Performed By: #### L [id number] ####Textile Engineer: MARY SOTELO ([id number])[facility] ([facility])[address] [place] [address] WBC (Bld) [#/Vol] 5.2 10*3/uL Normal 3.6-10.7 [facility] Comment on above: Performed By: #### L [id number] ####Textile Engineer: MARY SOTELO ([id number])[facility] ([facility])[address] [place] [address] IDNon 08-14-2024 IDN Normal [facility] - Chemistry and C hemistry - challengeon 08-14-2024 Glucose [Mass/Vol] 248 mg/dL High 70 - 100 mg/dL [facility] Glucose [Mass/Vol] 233 mg/dL High 70 - 100 mg/dL [facility] Glucose [Mass/Vol] 294 mg/dL High 70 - 100 mg/dL [facility] Glucose [Mass/Vol] 356 mg/dL High 70 - 100 mg/dL [facility] Magnesium [Mass/Vol] 2.1 mg/dL 1.6 - 2 .3 mg/dL [facility] MAGNESIUMon 08-14-2024 Magnesium [Mass/Vol] 2.1 mg/dL Normal 1.6-2.3 [facility] Comment on above: Performed By: #### L AB113, [id number], LAB15 ####Textile Engineer: MARY SOTELO ([id number])[facility] ([facility])[address] [place] [address] No Panel Informationon 08-14 Interpretation and review of laboratory results Abnormal [facility] Interpretation and review of laboratory results Abnormal [facility] Interpretation and review of laboratory results Abnormal [facility] Interpretation and review of laboratory results Abnormal [facility] Interpretation and review of laboratory results Normal [facility] PHOSPHORUSon 08-14-2024 Phosphate [Mass/Vol] 2.9 mg/dL Normal 2.5-4.5 [facility] Comment on above: Performed By: #### L ABGabbie, [id number], LAB15 ####Textile Engineer: MARY SOTELO ([phone])[facility] ([facility])[address] [place] [address] [place] Phosphate [Moles/Vol]on 08-03 Phosphate [Mass/Vol] 2.9 mg/dL 2.5 - 4 .5 mg/dL [facility] Progress Noteon 08-14-[address] [facility] Progress Note [facility] Progress Note [facility] Progress Note Normal [facility] BASIC METABOLIC PANELon 08-03 Anion gap [Moles/Vol] 11 mmol/L Normal 3-13 [facility] Comment on above: Performed By: #### Dora ABDante, [id number], [id number] ####Textile Engineer: MARY SOTELO ([phone])[facility] [place] [address] [place] Calcium [Mass/Vol] 7.1 mg/dL Low 8.4-10.4 [facility] Comment on above: Performed By: #### Dora OTT, [id number], [id number] ####Textile Engineer: MARY SOTELO ([phone])[facility] [place] [address] [place] Chloride [Moles/Vol] 103 mmol/L Normal 98-107 [facility] Comment on above: Performed By: #### Dora ABDante, [id number], [id number] ####Textile Engineer: MARY SOTELO ([phone])[facility] [place] [address] [place] CO2 [Moles/Vol] 19 mmol/L Low 22-30 [facility] Comment on above: Performed By: #### L AB15, [id number], [id number] ####Textile Engineer: MARY SOTELO ([id number])[facility] ([facility])[address] [place] [address] [place] Creatinine [Mass/Vol] 2.43 mg/dL High 0.52-1.[address] [facility] Comment on above: Performed By: #### L AB15, [id number], [id number] ####Textile Engineer: MARY SOTELO ([phone])[facility])[address] [place] [address] GLOMERULAR FILTRATION RATE ML/MIN/1.73 SQ M.PREDICTED 21.7 mL/min/1.73m*2 Low >60.0 [facility] Comment on above: Result Comment: Calc ulation based on the Chronic Kidney Disease Epidemiology Collaboration (CKD-EPI) equation refit without adjustment for race Performed By: #### L AB15, [id number], [id number] ####Textile Engineer: MARY SOTELO ([phone])[facility])[address] [place] [address] Glucose [Mass/Vol] 211 mg/dL High 70-100 [facility] Comment on above: Performed By: #### L AB15, [id number], [id number] ####Textile Engineer: MARY SOTELO ([id number])[facility] ([facility])[address] [place] [address] Potassium [Moles/Vol] 3.7 mmol/L Normal 3.5-5.[address] [facility] Comment on above: Performed By: #### L AB15, [id number], [id number] ####Textile Engineer: MARY SOTELO ([phone])[facility] ([facility])[address] [place] [address] Sodium [Moles/Vol] 134 mmol/L Low 135-145 [facility] Comment on above: Performed By: #### L AB15, [id number], [id number] ####Textile Engineer: MARY SOTELO ([id number])[facility] ([facility])[address] [place] [address] [place] Urea nitrogen [Mass/Vol] 18 mg/dL High 7-17 [facility] Comment on above: Performed By: #### L AB15, [id number], [id number] ####Textile Engineer: MARY SOTELO ([phone])[facility])[address] [place] [address] BETA HYDROXYBUTYRATEon 08-13 BETA HYDROXYBUTYRATE 33.80 mg/dL High 0.20-2.81 [facility] Comment on above: Performed By: #### L AB89, [id number], [id number], [id number] ####Textile Engineer: MARY SOTELO ([id number])[facility] ([facility])[address] [place] [address] BLOOD GAS ARTERIALon 024 Base excess Calc (Bld) [Moles/Vol] -3.2000 mmol/L Low -3.0-3.0 [facility] Comment on above: Performed By: #### L AB76 ####Textile Engineer: MARY SOTELO ([id number])[facility] ([facility])[address] [place] [address] CO2 [Moles/Vol] 24.8 mmol/L Normal 23.0-27.0 [facility] Comment on above: Performed By: #### L AB76 ####Textile Engineer: MARY SOTELO ([phone])[facility] ([facility])[address] [place] [address] HCO3 (Bld) [Moles/Vol] 23.3 mmol/L Normal 21.0-25.0 [facility] Comment on above: Performed By: #### L AB76 ####Textile Engineer: MARY SOTELO ([id number])[facility] ([facility])[address] [place] [address] Hemoglobin (Bld) [Mass/Vol] 8.3 g/dL Normal Screen only [facility] Comment on above: Performed By: #### L AB76 ####Textile Engineer: MARY [phone])[facility])[address] [place] [address] OXYGEN SATURATION (%) IN ARTERIAL BLOOD 95.8 % Normal 95.0-100.0 [facility] Comment on above: Performed By: #### L AB76 ####Textile Engineer: MARY [phone])[facility] [place] [address] PCO2 ARTERIAL 49.4 mm Hg High >35.0-<45.0 [facility] Comment on above: Performed By: #### L AB76 ####Textile Engineer: MARY SOTELO ([phone])[facility] [place] [address] PH ARTERIAL 7.291 Low 7.350-7.450 [facility] Comment on above: Performed By: #### L AB76 ####Textile Engineer: MARY SOTELO ([id number])[facility] ([facility])[address] [place] [address] PO2 ARTERIAL 84.7 mm Hg Normal 80.0-100.0 [facility] Comment on above: Performed By: #### L AB76 ####Textile Engineer: MARY SOTELO ([id number])[facility] ([facility])[address] [place] [address] SOURCE OF OXYGEN 30% Oxygen Normal [facility] Comment on above: Performed By: #### L AB76 ####Textile Engineer: MARY SOTELO ([id number])[facility] ([facility])[address] [place] [address] CARECOORDon 08-13-2024 CARECOORD Normal [facility] CARECOORD Normal [facility] CBC W Auto Differential pane l (Bld)Ordered By: Elin Cline on 08-13-2024 Basophils (Bld) [#/Vol] 0 10*3/uL 0.0 - 0.2 10*3/uL [facility] Basophils/100 WBC (Bld) 0 % 0.0 - 2.0 % [facility] Eosinophils (Bld) [#/Vol] 0 10*3/uL 0.0 - 0.5 10*3/uL [facility] Eosinophils/100 WBC (Bld) 0 % 0.0 - 6.0 % [facility] Erythrocyte distribution width (RBC) [Ratio] 15.9 % High 11.5 - 15.0 % [facility] Hematocrit (Bld) [Volume fraction] 28.2 % Low 35.0 - 47.0 % [facility] Hemoglobin (Bld) [Mass/Vol] 9.2 g/dL Low 11.7 - 16.0 g/dL [facility] Immature granulocytes (Bld) [#/Vol] 0 10*3/uL NINF - 0.1 10*3/uL [facility] Immature granulocytes/100 WBC (Bld) 0.6 % 0.0 - 2.0 % [facility] Interpretation and review of laboratory results Abnormal [facility] IPF 3 [facility] Lymphocytes (Bld) [#/Vol] 0.3 10*3/uL Low 1.0 - 4.3 10*3/uL [facility] Lymphocytes/100 WBC (Bld) 9 % Low 15.0 - 45.0 % [facility] MCH (RBC) [Entitic mass] 29.4 pg 26.0 - 34.0 pg [facility] MCHC (RBC) [Mass/Vol] 32.6 % 30.5 - 36.0 % [facility] MCV (RBC) [Entitic vol] 90.1 fL 77.0 - 99.0 fL [facility] [employer] Monocytes (Bld) [#/Vol] 0.1 10*3/uL 0.0 - 0.9 10*3/uL [facility] [facility] Mon[facility]/100 WBC (Bld) 3.8 % Low 5.0 - 13.0 % [facility] Neutrophils (Bld) [#/Vol] 2.7 10*3/uL 1.8 - 7.5 10*3/uL [facility] Neutrophils/100 WBC (Bld) 86.6 % High 38.0 - 82.0 % [facility] Nucleated RBC/100 WBC (Bld) [Ratio] 0 % [facility] Platelet mean volume (Bld) [Entitic vol] 10.5 fL 9.0 - 12.7 fL [facility] Platelets (Bld) [#/Vol] 78 10*3/uL Low 140 - 440 10*3/uL [facility] RBC (Bld) [#/Vol] 3.13 10*6/uL Low 3.80 - 5.2 0 10*6/uL [facility] WBC (Bld) [#/Vol] 3.1 10*3/uL Low 3.6 - 10.7 10*3/uL [facility] CBC WITH AUTO DIFFERENTIALon 08-13-2024 Basophils (Bld) [#/Vol] 0.0 10*3/uL Normal 0.0-0.2 [facility] Comment on above: Performed By: #### L [id number] ####Textile Engineer: MARY SOTELO ([phone])[facility] ([facility])[address] [place] [address] Basophils/100 WBC (Bld) 0.0 % Normal 0.0-2.0 [facility] Comment on above: Performed By: #### L [id number] ####Textile Engineer: MARY SOTELO ([phone])[facility])[address] [place] [address] Eosinophils (Bld) [#/Vol] 0.0 10*3/uL Normal 0.0-0.5 [facility] Comment on above: Performed By: #### L [id number] ####Textile Engineer: MARY SOTELO ([phone])[facility])[address] [place] [address] Eosinophils/100 WBC (Bld) 0.0 % Normal 0.0-6.0 [facility] Comment on above: Performed By: #### L [id number] ####Textile Engineer: MARY SOTELO ([phone])[facility])[address] [place] [address] Erythrocyte distribution width (RBC) [Ratio] 15.9 % High 11.5-15.0 [facility] Comment on above: Performed By: #### L [id number] ####Textile Engineer: MARY SOTELO ([phone])[facility])[address] [place] [address] Hematocrit (Bld) [Volume fraction] 28.2 % Low 35.0-47.0 [facility] Comment on above: Performed By: #### L [id number] ####Textile Engineer: MARY SOTELO ([phone])[facility])[address] [place] [address] Hemoglobin (Bld) [Mass/Vol] 9.2 g/dL Low 11.7-16.0 [facility] Comment on above: Performed By: #### L [id number] ####Textile Engineer: MARY SOTELO ([phone])[facility])[address] [place] [address] IMMATURE GRANS % 0.6 % Normal 0.0-2.0 [facility] Comment on above: Performed By: #### L [id number] ####Textile Engineer: MARY SOTELO ([phone])[facility])[address] [place] [address] IMMATURE GRANS ABSOLUTE 0.0 10*3/uL Normal <0.1 [facility] Comment on above: Performed By: #### L [id number] ####Textile Engineer: MARY SOTELO ([phone])[place] [address] [place] IPF 3 Normal [facility] Comment on above: Performed By: #### L [id number] ####Textile Engineer: MARY SOTELO ([phone])[facility])[address] [place] [address] Lymphocytes (Bld) [#/Vol] 0.3 10*3/uL Low 1.0-4.3 [facility] Comment on above: Performed By: #### L [id number] ####Textile Engineer: MARY SOTELO ([phone])[facility])[address] [place] [address] Lymphocytes/100 WBC (Bld) 9.0 % Low 15.0-45.0 [facility] Comment on above: Performed By: #### L [id number] ####Textile Engineer: MARY SOTELO ([phone])[facility])[address] [place] [address] MCH (RBC) [Entitic mass] 29.4 pg Normal 26.0-34.0 [facility] Comment on above: Performed By: #### L [id number] ####Textile Engineer: MARY SOTELO ([id number])[facility] ([facility])[address] [place] [address] MCHC 32.6 % Normal 30.5-36.0 [facility] Comment on above: Performed By: #### L [id number] ####Textile Engineer: MARY SOTELO ([phone])[facility] ([facility])[address] [place] [address] MCV (RBC) [Entitic vol] 90.1 fL Normal 77.0-99.0 [facility] Comment on above: Performed By: #### L [id number] ####Textile Engineer: MARY SOTELO ([id number])[facility] ([facility])[address] [place] [address] Monocytes (Bld) [#/Vol] 0.1 10*3/uL Normal 0.0-0.9 [facility] Comment on above: Performed By: #### L [id number] ####Textile Engineer: MARY SOTELO ([phone])[facility] ([facility])[address] [place] [address] Monocytes/100 WBC (Bld) 3.8 % Low 5.0-13.0 [facility] Comment on above: Performed By: #### L [id number] ####Textile Engineer: MARY SOTELO ([phone])[facility] ([facility])[address] [place] [address] NEUTROPHILS ABSOLUTE 2.7 10*3/uL Normal 1.8-7.5 [facility] Comment on above: Performed By: #### L [id number] ####Textile Engineer: MARY SOTELO ([phone])[facility] ([facility])[address] [place] [address] Neutrophils/100 WBC (Bld) 86.6 % High 38.0-82.0 [facility] Comment on above: Performed By: #### L [id number] ####Textile Engineer: MARY SOTELO ([phone])[facility] ([facility])[address] [place] [address] NRBC 0.0 /100 WBCs Normal 0.0-2.0 [facility] Comment on above: Performed By: #### L [id number] ####Textile Engineer: MARY SOTELO ([phone])[facility])[address] [place] [address] Platelet mean volume (Bld) [Entitic vol] 10.5 fL Normal 9.0-12.7 [facility] Comment on above: Performed By: #### L [id number] ####Textile Engineer: MARY SOTELO ([id number])[facility] ([facility])[address] [place] [address] Platelets (Bld) [#/Vol] 78 10*3/uL Low 140-440 [facility] Comment on above: Performed By: #### L [id number] ####Textile Engineer: MARY SOTELO ([phone])[facility])[address] [place] [address] RBC (Bld) [#/Vol] 3.13 10*6/uL Low 3.80-5.20 [facility] Comment on above: Performed By: #### L [id number] ####Textile Engineer: MARY SOTELO ([id number])[facility] ([facility])[address] [place] [address] WBC (Bld) [#/Vol] 3.1 10*3/uL Low 3.6-10.7 [facility] Comment on above: Performed By: #### L [id number] ####Textile Engineer: MARY SOTELO ([phone])[facility] ([facility])[address] [place] [address] Erythrocyte distribution width (RBC) [Ratio] 16.1 % High 11.5-15.0 [facility] Comment on above: Performed By: #### L [id number], [id number] ####Textile Engineer: MARY SOTELO ([phone])[facility])[address] [place] [address] Hematocrit (Bld) [Volume fraction] 21.0 % Low 35.0-47.0 [facility] Comment on above: Performed By: #### L [id number], [id number] ####Textile Engineer: MARY SOTELO ([id number])[facility])[address] [place] [address] Hemoglobin (Bld) [Mass/Vol] 6.7 g/dL Critically low 11.7-16.0 [facility] Comment on above: Performed By: #### L [id number], [id number] ####Textile Engineer: MARY SOTELO ([phone])[facility])[address] [place] [address] IPF 3 Normal [facility] Comment on above: Performed By: #### L [id number], [id number] ####Textile Engineer: MARY SOTELO ([phone])[address] MCH (RBC) [Entitic mass] 29.8 pg Normal 26.0-34.0 [facility] Comment on above: Performed By: #### L [id number], [id number] ####Textile Engineer: MARY SOTELO ([id number])[facility])[address] [place] [address] MCHC 31.9 % Normal 30.5-36.0 [facility] Comment on above: Performed By: #### L [id number], [id number] ####Textile Engineer: MARY SOTELO ([phone])[facility])[address] [place] [address] MCV (RBC) [Entitic vol] 93.3 fL Normal 77.0-99.0 [facility] Comment on above: Performed By: #### L [id number], [id number] ####Textile Engineer: MARY SOTELO ([id number])[facility])[address] [place] [address] Platelet mean volume (Bld) [Entitic vol] 11.1 fL Normal 9.0-12.7 [facility] Comment on above: Performed By: #### L [id number], [id number] ####Textile Engineer: MARY SOTELO ([id number])[facility] ([facility])[address] [place] [address] Platelets (Bld) [#/Vol] 65 10*3/uL Low 140-440 [facility] Comment on above: Performed By: #### L [id number], [id number] ####Textile Engineer: MARY SOTELO ([id number])[facility] ([facility])[address] [place] [address] RBC (Bld) [#/Vol] 2.25 10*6/uL Low 3.80-5.20 [facility] Comment on above: Performed By: #### L [id number], [id number] ####Textile Engineer: MARY SOTELO ([id number])[facility] ([facility])[address] [place] [address] WBC (Bld) [#/Vol] 2.5 10*3/uL Low 3.6-10.7 [facility] Comment on above: Performed By: #### L [id number], [id number] ####Textile Engineer: MARY SOTELO ([id number])[facility] ([facility])[address] [place] [address] COMPLETE URINALYSISon 2023 BACTERIA (#/HPF) IN URINE Few Abnormal Negative [facility] Comment on above: Performed By: #### L [id number] ####Textile Engineer: MARY SOTELO ([id number])[facility] ([facility])[address] [place] [address] BILIRUBIN, TOTAL PRESENCE IN URINE Negative Normal Negative [facility] Comment on above: Performed By: #### L [id number] ####Textile Engineer: MRAY SOTELO ([phone])[facility])[address] [place] [address] Clarity (U) Extra Turbid Abnormal Clear [facility] Comment on above: Performed By: #### L [id number] ####Textile Engineer: MARY SOTELO ([id number])[facility] ([facility])[address] [place] [address] Color (U) Yellow Normal Lt. Yellow [facility] Comment on above: Performed By: #### L [id number] ####Textile Engineer: MARY SOTELO ([id number])[facility] ([facility])[address] [place] [address] GLUCOSE (MG/DL) IN URINE Normal Normal Normal (<70) [facility] Comment on above: Performed By: #### L [id number] ####Textile Engineer: MARY SOTELO ([id number])[facility] ([facility])[address] [place] [address] HEMOGLOBIN PRESENCE IN URINE 0.2 mg/dL Abnormal Negative [facility] Comment on above: Performed By: #### L [id number] ####Textile Engineer: MARY SOTELO ([id number])[facility])[address] [place] [address] Ketones Ql (U) Trace Abnormal Negative [facility] Comment on above: Performed By: #### L [id number] ####Textile Engineer: MARY SOTELO ([id number])[facility] ([facility])[address] [place] [address] LEUKOCYTE ESTERASE PRESENCE IN URINE BY TEST STRIP 500 Bere/uL Abnormal Negative [facility] Comment on above: Performed By: #### L [id number] ####Textile Engineer: MARY SOTELO ([id number])[facility] [place] [address] MUCUS (#/LPF) IN URINE SEDIMENT Few Normal Negative [facility] Comment on above: Performed By: #### L [id number] ####Textile Engineer: MARY SOTELO ([id number])[facility] ([facility])[address] [place] [address] NITRITE PRESENCE IN URINE Negative Normal Negative [facility] Comment on above: Performed By: #### L [id number] ####Textile Engineer: MARY SOTELO ([phone])[facility] ([facility])[address] [place] [address] [place] NON-SQUAMOUS EPITHELIAL (#/HPF) IN URINE 0-2 Abnormal Negative [facility] Comment on above: Performed By: #### L [id number] ####Textile Engineer: MARY SOTELO ([phone])[facility] ([facility])[address] [place] [address] pH (U) 5.5 [pH] Normal 5.0-8.0 [facility] Comment on above: Performed By: #### L [id number] ####Textile Engineer: MARY SOTELO ([id number])[facility] ([facility])[address] [place] [address] Protein (U) [Mass/Vol] 100 mg/dL Abnormal Negative [facility] Comment on above: Performed By: #### L [id number] ####Textile Engineer: MARY SOTELO ([phone])[facility])[address] [place] [address] [place] RBC (#/HPF) IN URINE SEDIMENT 11-25 Abnormal 0-2 [facility] Comment on above: Performed By: #### L [id number] ####Textile Engineer: MARY SOTELO ([phone])[facility])[address] [place] [address] Specific gravity (U) [Rel density] 1.021 Normal 1.005-1.030 [facility] Comment on above: Performed By: #### L [id number] ####Textile Engineer: MARY SOTELO ([phone])[facility])[address] [place] [address] SQUAMOUS EPITHELIAL CELLS (#/HPF) IN URINE SEDIMENT 0-2 Normal 3-5 [facility] Comment on above: Performed By: #### L [id number] ####Textile Engineer: MARY SOTELO ([phone])[facility])[address] [place] [address] [place] UROBILINOGEN (MG/DL) IN URINE Normal Normal Normal (0-1) [facility] Comment on above: Performed By: #### L [id number] ####Textile Engineer: MARY SOTELO ([id number])[facility])[address] [place] [address] WBC (LEUKOCYTE) (#/HPF) IN URINE SEDIMENT >100 Abnormal 0-5 [facility] Comment on above: Performed By: #### L [id number] ####Textile Engineer: MARY SOTELO ([phone])[facility])[address] [place] [address] WBC (LEUKOCYTE) CLUMPS (#/HPF) IN URINE SEDIMENT Occasional Abnormal Negative [facility] Comment on above: Performed By: #### L [id number] ####Textile Engineer: MARY SOTELO ([id number])[facility])[address] [place] [address] YEAST (#/HPF) IN URINE Many Abnormal Negative [facility] Comment on above: Performed By: #### L [id number] ####Textile Engineer: MARY SOTELO ([phone])[facility])[address] [place] [address] Consulton 08-13-2024 Consult Normal [facility] Consult Normal [facility] Consult Normal [facility] HAPTOGLOBINon 08-13-2024 HAPTOGLOBIN 44.2 mg/dL Normal 30.0-200.0 [facility] Comment on above: Performed By: #### L AB89, [id number], [id number], [id number] ####Textile Engineer: MARY SOTELO ([id number])[facility])[address] [place] [address] HEMOGLOBIN AND HEMATOCRIT, B LOODon 08-13-2024 Hematocrit (Bld) [Volume fraction] 28.3 % Low 35.0-47.0 [facility] Comment on above: Order Comment: Recom mend 1 hour post transfusion Performed By: #### L [id number] ####Textile Engineer: MARY SOTELO ([phone])[facility])[address] [place] [address] Hemoglobin (Bld) [Mass/Vol] 9.2 g/dL Low 11.7-16.0 [facility] Comment on above: Order Comment: Recom mend 1 hour post transfusion Performed By: #### L [id number] ####Textile Engineer: MARY SOTELO ([id number])[facility])[address] [place] [address] Hematocrit (Bld) [Volume fraction] 27.5 % Low 35.0-47.0 [facility] Comment on above: Order Comment: Recom mend 1 hour post transfusion Performed By: #### L [id number] ####Textile Engineer: MARY SOTELO ([id number])[address] Hemoglobin (Bld) [Mass/Vol] 8.7 g/dL Low 11.7-16.0 [facility] Comment on above: Order Comment: Recom mend 1 hour post transfusion Performed By: #### L [id number] ####Textile Engineer: MARY SOTELO ([phone])[facility])[address] [place] [address] HEPARIN-INDUCED PLATELET AB, REFL JONO UNFRAC HEP (BKR QUEST)on 08-13-2024 [facility]ST HEPARIN INDUCED PLATELET ANTIBODY Negative Normal Negative [facility] Comment on above: Result Comment: This [...] Thromb Haemost 2008;6:1304-12). Performed By: #### L [id number] ####[facility] ([facility])[address] [place], [place] QUEST PATIENT O.D. 0.052 Normal [facility] Comment on above: Result Comment: ____ ! O.D.units ! Result !! ! !! <=0.300 ! Negative !! >0.300 to <=0.500 ! Weak Positive !! >0.500 ! Positive !! ! !For additional information, please refer [email or web address](This link is being provided for informational/educational purposes only.)Test Performed by [employer] [facility],[address] [place] [id number] Wells M.D., Ph.D., Director of [phone], [place] [id number] Performed By: #### L [id number] ####[employer] ([employer]DB[employer])[address] [place] [address] [place] Hemoglobin (Bld) [Mass/Vol]O rdered By: Laurel Alva on 08-13-2024 Hematocrit (Bld) [Volume fraction] 28.3 % Low 35.0 - 47.0 % [facility] Interpretation and review of laboratory results Abnormal [facility] LACTATE DEHYDROGENASEon 08-03 LDH [Catalytic activity/Vol] 184 U/L Normal 120-246 [facility] Comment on above: Performed By: #### L AB89, [id number], [id number], [id number] ####Textile Engineer: MARY SOTELO ([phone])[address] LACTIC ACID WITH REFLEXon Lactate [Moles/Vol] mmol/L Low 0.7-2.0 [facility] Comment on above: Performed By: #### L [id number] ####Textile Engineer: MARY SOTELO ([phone])[facility] ([facility] [place] [address] Laboratory - Chemistry and C hemistry - challengeon 08-13-2024 Glucose [Mass/Vol] 310 mg/dL High 70 - 100 mg/dL [facility] Glucose [Mass/Vol] 259 mg/dL High 70 - 100 mg/dL [facility] Glucose [Mass/Vol] 176 mg/dL High 70 - 100 mg/dL [facility] Troponin I.cardiac [Mass/Vol] 0.074 ng/mL High NINF - 0.034 ng/mL [facility] Glucose [Mass/Vol] 307 mg/dL High 70 - 100 mg/dL [facility] Troponin I.cardiac [Mass/Vol] 0.07 ng/mL High NINF - 0.034 ng/mL [facility] Troponin I.cardiac [Mass/Vol] 0.065 ng/mL High NINF - 0.034 ng/mL [facility] Glucose [Mass/Vol] 259 mg/dL High 70 - 100 mg/dL [facility] Troponin I.cardiac [Mass/Vol] 0.073 ng/mL High NINF - 0.034 ng/mL [facility] Lactate [Moles/Vol] mmol/L Low 0.7 - 2. 0 mmol/L [facility] Base excess Calc (Bld) [Moles/Vol] -3.2000 mmol/L Low -3.0 - 3.0 mmol/L [facility] CO2 (Bld) [Partial pressure] 49.4 mm[Hg] High - PINF [facility] CO2 [Moles/Vol] 24.8 mmol/L 23.0 - 27.0 mmol/L [facility] HCO3 (Bld) [Moles/Vol] 23.3 mmol/L 21.0 - 25.0 mmol/L [facility] Oxygen (Bld) [Partial pressure] 84.7 mm[Hg] [facility] pH (Bld) 7.291 [pH] Low 7.350 - 7.450 [facility] Beta hydroxybutyrate [Mass/Vol] 33.8 mg/dL High 0.20 - 2.81 mg/dL [facility] Laboratory - Hematology and Cell countson 08-13-2024 Haptoglobin [Mass/Vol] 44.2 mg/dL 30.0 - 200.0 mg/dL [facility] Hemoglobin (Bld) [Mass/Vol] 8.3 g/dL Screen only [facility] Anisocytosis Ql (Bld) Slight Abnormal (none) [facility] Band form neutrophils (Bld) [#/Vol] 0.1 10*3/uL High NINF - 0.0 10*3/uL [facility] Band form neutrophils/100 WBC (Bld) 2 % High NINF - 0 % [facility] Basophilic stippling LM Ql (Bld) Slight Abnormal (none) [facility] Lymphocytes (Bld) [#/Vol] 0.2 10*3/uL Low 1.0 - 4.3 10*3/uL [facility] Lymphocytes/100 WBC (Bld) 7 % Low 15 - 45 % [facility] Microcytes Ql (Bld) Slight Abnormal (none) [facility] Monocytes (Bld) [#/Vol] 0 10*3/uL 0.0 - 0.9 10*3/uL [facility] Monocytes/100 WBC (Bld) 0 % Low 5 - 13 % [facility] Neutrophils (Bld) [#/Vol] 2.3 10*3/uL 1.8 - 7.5 10*3/uL [facility] Polychromasia LM Ql (Bld) Slight Abnormal (none) [facility] RBC morphology finding Nom (Bld) abnormal [facility] Segmented neutrophils/100 WBC (Bld) 91 % High 38 - 82 % [facility] Laboratory - Hematology and Cell countsOrdered By: Laurel Alva on 08-13-2024 Hemoglobin (Bld) [Mass/Vol] 9.2 g/dL Low 11.7 - 16.0 g/dL [facility] MAGNESIUMon 08-13-2024 Magnesium [Mass/Vol] 1.5 mg/dL Low 1.6-2.3 [facility] Comment on above: Performed By: #### L AB15, [id number], [id number] ####Textile Engineer: MARY SOTELO ([id number])[facility] ([address] MANUAL DIFFERENTIAL (CELLAVI ESPINOZA)on 08-13-2024 ANISOCYTOSIS PRESENCE IN BLOOD BY LIGHT MICROSCOPY Slight Abnormal (none) [facility] Comment on above: Performed By: #### L [id number], [id number] ####Textile Engineer: MARY SOTELO ([id number])[facility] ([facility])[address] [place] [address] [place] BAND NEUTROPHILS TOTAL PER COUNTED LEUKOCYTES BY MANUAL COUNT 2 Normal [facility] Comment on above: Performed By: #### L [id number], [id number] ####Textile Engineer: MARY OSTELO ([phone])[facility] ([facility])[address] [place] [address] [place] BANDS (10*3/UL) IN BLOOD-CELLAVISION 0.1 10*3/uL High <=0.0 [facility] Comment on above: Performed By: #### L [id number], [id number] ####Textile Engineer: MARY SOTEOL ([id number])[facility] ([facility])[address] [place] [address] BASOPHILIC STIPPLING PRESENCE IN BLOOD BY LIGHT MICROSCOPY Slight Abnormal (none) [facility] Comment on above: Performed By: #### L [id number], [id number] ####Textile Engineer: MARY SOTELO ([phone])[facility] ([facility])[address] [place] [address] [place] BASOPHILS TOTAL PER COUNTED LEUKOCYTES BY MANUAL COUNT Normal [facility] Comment on above: Performed By: #### L [id number], [id number] ####Textile Engineer: MARY SOTELO ([phone])[facility] ([facility])[address] [place] [address] [place] BLASTS TOTAL PER COUNTED LEUKOCYTES BY MANUAL COUNT Normal [facility] Comment on above: Performed By: #### L [id number], [id number] ####Textile Engineer: MARY SOTELO ([phone])[facility])[address] [place] [address] [place] EOSINOPHILS TOTAL PER COUNTED LEUKOCYTES BY MANUAL COUNT Normal [facility] Comment on above: Performed By: #### L [id number], [id number] ####Textile Engineer: MARY SOTELO ([phone])[facility] ([facility])[address] [place] [address] [place] LYMPHOCYTES (10*3/UL) IN BLOOD-CELLAVISION 0.2 10*3/uL Low 1.0-4.3 [facility] Comment on above: Performed By: #### L [id number], [id number] ####Textile Engineer: MARY SOTELO ([phone])[facility] ([facility])[address] [place] [address] [place] LYMPHOCYTES TOTAL PER COUNTED LEUKOCYTES BY MANUAL COUNT 7 Normal [facility] Comment on above: Performed By: #### L [id number], [id number] ####Textile Engineer: MARY SOTELO ([phone])[facility])[address] [place] [address] LYMPHOCYTES/100 LEUKOCYTES IN BLOOD-CELLAVISION 7 % Low 15-45 [facility] Comment on above: Performed By: #### Dora [id number], [id number] ####Textile Engineer: MARY SOTELO ([phone])[facility] ([facility])[address] [place] [address] METAMYELOCYTES TOTAL PER COUNTED LEUKOCYTES BY MANUAL COUNT Normal [facility] Comment on above: Performed By: #### L [id number], [id number] ####Textile Engineer: MARY SOTELO ([phone])[facility] ([facility])[address] [place] [address] MICROCYTES (PRESENCE) IN BLOOD BY LIGHT MICROSCOPY Slight Abnormal (none) [facility] Comment on above: Performed By: #### L [id number], [id number] ####Textile Engineer: MARY SOTELO ([phone])[facility] ([facility])[address] [place] [address] [place] MONOCYTES (10*3/UL) IN BLOOD-CELLAVISION 0.0 10*3/uL Normal 0.0-0.9 [facility] Comment on above: Performed By: #### L [id number], [id number] ####Textile Engineer: MARY SOTELO ([id number])[facility])[address] [place] [address] [place] MONOCYTES TOTAL PER COUNTED LEUKOCYTES BY MANUAL COUNT 0 Normal [facility] Comment on above: Performed By: #### L [id number], [id number] ####Textile Engineer: MARY SOTELO ([id number])[facility] ([facility])[address] [place] [address] [place] MONOCYTES/100 LEUKOCYTES IN BLOOD-KACEY 0 % Low 5-13 [facility] Comment on above: Performed By: #### L [id number], [id number] ####Textile Engineer: MARY SOTELO ([id number])[facility] ([facility])[address] [place] [address] [place] MYELOCYTES COUNTED BY MANUAL COUNT Normal [facility] Comment on above: Performed By: #### L [id number], [id number] ####Textile Engineer: MARY SOTELO ([phone])[facility] ([facility])[address] [place] [address] [place] NEUTROPHILS BAND FORM/100 LEUKOCYTES IN BLOOD-CELLAVISI 2 % High <=0 [facility] Comment on above: Performed By: #### Dora [id number], [id number] ####Textile Engineer: MARY SOTELO ([phone])[facility] ([facility])[address] [place] [address] [place] NEUTROPHILS TOTAL PER COUNTED LEUKOCYTES BY MANUAL COUNT 90 Normal [facility] Comment on above: Performed By: #### L [id number], [id number] ####Textile Engineer: MARY SOTELO ([phone])[facility] ([facility])[address] [place] [address] [place] POLYCHROMASIA IN BLOOD BY LIGHT MICROSCOPY Slight Abnormal (none) [facility] Comment on above: Performed By: #### L [id number], [id number] ####Textile Engineer: MARY SOTELO ([phone])[facility] ([facility])[address] [place] [address] [place] PROMYELOCYTES TOTAL PER COUNTED LEUKOCYTES BY MANUAL COUNT Normal [facility] Comment on above: Performed By: #### L [id number], [id number] ####Textile Engineer: MARY [id number])[facility])[address] [place] [address] [place] RBC MORPHOLOGY IN BLOOD abnormal Normal [facility] Comment on above: Performed By: #### L [id number], [id number] ####Textile Engineer: MARY SOTELO ([phone])[facility] ([facility])[address] [place] [address] SEGMENTED NEUTROPHILS (10*3/UL) IN BLOOD-CELLAVISION 2.3 10*3/uL Normal 1.8-7.5 [facility] Comment on above: Performed By: #### L [id number], [id number] ####Textile Engineer: MARY SOTELO ([id number])[facility] ([facility])[address] [place] [address] SEGMENTED NEUTROPHILS/100 LEUKOCYTES-CE 91 % High 38-82 [facility] Comment on above: Performed By: #### L [id number], [id number] ####Textile Engineer: MARY SOTELO ([phone])[facility] [place] [address] UNCLASSIFIED CELLS TOTAL PER COUNTED LEUKOCYTES BY MANUAL COUNT Normal [facility] Comment on above: Performed By: #### L [id number], [id number] ####Textile Engineer: MARY SOTELO ([id number])[facility] ([facility])[address] [place] [address] VARIANT LYMPHOCYTES TOTAL PER COUNTED LEUKOCYTES BY MANUAL COUNT Normal [facility] Comment on above: Performed By: #### L [id number], [id number] ####Textile Engineer: MARY SOTELO ([phone])[facility])[address] [place] [address] No Panel Informationon 08-13 Interpretation and review of laboratory results Abnormal [facility] Interpretation and review of laboratory results Abnormal [facility] Interpretation and review of laboratory results Abnormal [facility] Interpretation and review of laboratory results Abnormal [facility] Interpretation and review of laboratory results Normal [facility] Interpretation and review of laboratory results Abnormal [facility] Interpretation and review of laboratory results Abnormal [facility] Interpretation and review of laboratory results Abnormal [facility] Source Of Oxygen 30[facility] Interpretation and review of laboratory results Abnormal [facility] Health Bands Manual 2 [facility] Lymphocytes Manual 7 [facility] Monocytes Manual 0 [facility] alth Neutrophils Manual 90 [facility] No Panel InformationOrdered By: Tanisha Main on 08-13-2024 Interpretation and review of laboratory results Abnormal [facility] mecA/C (MRSE/MRSL) Detected Abnormal Not Detected [facility] Staphylococcus epidermidis Detected Abnormal Not Detected [facility] Nursing Noteon 08-13-2024 Nursing Note Normal [facility] PHOSPHORUSon 08-13-2024 Phosphate [Mass/Vol] 3.0 mg/dL Normal 2.5-4.5 [facility] Comment on above: Performed By: #### L [id number], [id number], [id number] ####Textile Engineer: MARY SOTELO ([phone])[facility] ([facility])[address] [place] [address] PROTIME AND APTTon aPTT Coag (Bld) [Time] 29.6 s Normal 20.0-30.5 [facility] Comment on above: Performed By: #### L [id number] ####Textile Engineer: MARY SOTELO ([id number])[facility] ([facility])[address] [place] [address] INR Coag (PPP) [Relative time] 1.0 {INR} Normal 0.9-1.1 [facility] Comment on above: Result Comment: Elias [...] prevent Myocardial Infarction Performed By: #### L [id number] ####Textile Engineer: MARY SOTELO ([id number])[facility] ([facility])[address] [place] [address] PT Coag (PPP) [Time] 11.6 s Normal 9.0-12.0 [facility] Comment on above: Performed By: #### L [id number] ####Textile Engineer: MARY SOTELO ([id number])[facility] ([facility])[address] [place] [address] Progress Noteon 08-13-2024 Progress Note Chart reviewed, as I was notified via [facility] of patient's readmission to [facility] yesterday (08/12) with altered mental status. Closing patient's transitional program at this time d/t her readmission. Normal [facility] Progress Note Normal [facility] Progress Note Normal [facility] RESPIRATORY PATHOGENS PANEL BY PCRon 08-13-2024 RESPIRATORY PATHOGENS PANEL BY PCR Normal [facility] Comment on above: Performed By: #### L [id number] ####Textile Engineer: MARY SOTELO ([id number])[facility])[address] [place] [address] Respiratory pathogens DNA an d RNA panel MARISA+non-probe (Nph)on 08-13-2024 Adenovirus Not detected Not Detected [facility] B. pertussis DNA MARISA+probe Ql (Unsp spec) Not detected Not Detected [facility] Bordetella parapertussis Not detected Not Detected [facility] Chlamydia pneumoniae Not detected Not Detected [facility] Coronavirus 229E Not detected Not Detected [facility] Coronavirus HKU1 Not detected Not Detected [facility] Coronavirus NL63 Not detected Not Detected [facility] Coronavirus OC43 Not detected Not Detected [facility] FLUAV RNA MARISA+non-probe Ql (Nph) Not detected Not Detected [facility] FLUBV RNA MARISA+non-probe Ql (Nph) Not detected Not Detected [facility] Human Metapneumovirus Not detected Not Detected [facility] Human Rhinovirus/Enterovirus Not detected Not Detected [facility] Interpretation and review of laboratory results Normal [facility] Mycoplasma pneumoniae Not detected Not Detected [facility] Parainfluenza 1 Not detected Not Detected [facility] Parainfluenza 2 Not detected Not Detected [facility] Parainfluenza 3 Not detected Not Detected [facility] Parainfluenza 4 Not detected Not Detected [facility] Respiratory Syncytial Virus Not detected Not Detected [facility] SARS-CoV-2 (COVID-19) RNA MARISA+non-probe Ql (Nph) Not detected Not Detected [facility] TROPONIN Ion 08-13-2024 Troponin I.cardiac [Mass/Vol] 0.074 ng/mL High <0.034 [facility] Comment on above: Result Comment: BINA R COMMENTS:Patients with high levels of Biotin oral intake (ie >5 mg/day) may have falsely decreased Troponin levels. Performed By: #### L [id number] ####Textile Engineer: MARY SOTELO ([phone])[address] Troponin I.cardiac [Mass/Vol] 0.070 ng/mL High <0.034 [facility] Comment on above: Result Comment: BINA Olivarez COMMENTS:Patients with high levels of Biotin oral intake (ie >5 mg/day) may have falsely decreased Troponin levels. Performed By: #### L [id number] ####Textile Engineer: MARY SOTELO ([phone])[address] Troponin I.cardiac [Mass/Vol] 0.073 ng/mL High <0.034 [facility] Comment on above: Result Comment: BINA Olivarez COMMENTS:Patients with high levels of Biotin oral intake (ie >5 mg/day) may have falsely decreased Troponin levels. Performed By: #### L [id number] ####Textile Engineer: MARY SOTELO ([phone])[facility])[address] [place] [address] TROPONIN, WITH SERIAL REFLEX on 08-13-2024 Troponin I.cardiac [Mass/Vol] 0.065 ng/mL High <0.034 [facility] Comment on above: Result Comment: BINA Olivarez COMMENTS:Patients with high levels of Biotin oral intake (ie >5 mg/day) may have falsely decreased Troponin levels. Performed By: #### L AB89, [id number], [id number], [id number] ####Textile Engineer: MARY SOTELO ([phone])[facility] ([facility])[address] [place] [address] Troponin I.cardiac [Mass/Vol ]on 08-13-2024 Interpretation and review of laboratory results Abnormal [facility] Interpretation and review of laboratory results Abnormal [facility] Interpretation and review of laboratory results Abnormal [facility] Interpretation and review of laboratory results Abnormal [facility] URINE CULTUREon 08-13-2024 Bacteria identified Cx Nom (U) Normal [facility] Comment on above: Performed By: #### L [id number] ####Textile Engineer: MARY SOTELO ([phone])[facility] ([facility])[address] [place] [address] Urinalysis complete panel (U )on 08-13-2024 Bacteria LM.HPF (Urine sed) [#/Area] Few Abnormal Negative /HPF [facility] Bilirubin Ql (U) Negative Negative mg/dL [facility] Clarity (U) Extra Turbid Abnormal Clear [facility] Color (U) Yellow Lt. Yellow [facility] Epithelial cells.squamous LM.HPF (Urine sed) [#/Area] 0-2 [facility] Glucose Ql (U) Normal Normal (<70) mg/dL [facility] Hemoglobin Ql (U) 0.2 mg/dL Abnormal Negative [facility] Interpretation and review of laboratory results Abnormal [facility] Ketones (U) [Mass/Vol] Trace Abnormal Negat pawan mg/dL [facility] Leukocyte clumps LM.HPF (Urine sed) [#/Area] Occasional Abnormal Negative /HPF [facility] Leukocyte esterase Test strip Ql (U) 500 Abnormal Negative Bere/uL [facility] Mucus LM.HPF (Urine sed) [#/Area] Few Negative /LPF [facility] Nitrite Ql (U) Negative Negative [facility] Non-Squamous Epithalial Cells, Urine 0-2 Abnormal Negative /HPF [facility] pH (U) 5.5 [pH] 5.0 - 8.0 pH [facility] Protein (U) [Mass/Vol] 100 mg/dL Abnormal Negative [facility] RBC LM.HPF (Urine sed) [#/Area] 11-25 Abnormal [facility] Specific gravity (U) [Rel density] 1.021 1.005 - 1.030 [facility] Urobilinogen (U) [Mass/Vol] Normal Normal (0-1) mg/dL [facility] WBC LM.HPF (Urine sed) [#/Area] /[HPF] Abnormal [facility] Yeast.budding LM.HPF (Urine sed) [#/Area] Many Abnormal Negative /HPF [facility] BASIC METABOLIC PANELon 10-2023 Anion gap [Moles/Vol] 4 mmol/L Normal 3-[address] [facility] Comment on above: Performed By: #### L [id number], [id number], [id number] ####Textile Engineer: MARY SOTELO ([phone])[facility] ([facility])[address] [place] [address] Calcium [Mass/Vol] 6.6 mg/dL Low 8.4-10.4 [facility] Comment on above: Performed By: #### Dora [id number], [id number], [id number] ####Textile Engineer: MARY SOTELO ([id number])[facility] ([facility])[address] [place] [address] [place] Chloride [Moles/Vol] 100 mmol/L Normal 98-107 [facility] Comment on above: Performed By: #### L [id number], LAB15, [id number] ####Textile Engineer: MARY SOTELO ([phone])[facility] ([facility])[address] [place] [address] [place] CO2 [Moles/Vol] 28 mmol/L Normal 22-30 [facility] Comment on above: Performed By: #### L [id number], LAB15, [id number] ####Textile Engineer: MARY SOTELO ([id number])[facility])[address] [place] [address] Creatinine [Mass/Vol] 2.38 mg/dL High 0.52-1.[address] [facility] Comment on above: Performed By: #### L [id number], LAB15, [id number] ####Textile Engineer: MARY SOTEOL ([phone])[facility])[address] [place] [address] GLOMERULAR FILTRATION RATE ML/MIN/1.73 SQ M.PREDICTED 22.3 mL/min/1.73m*2 Low >60.0 [facility] Comment on above: Result Comment: Calc ulation based on the Chronic Kidney Disease Epidemiology Collaboration (CKD-EPI) equation refit without adjustment for race Performed By: #### L [id number], LAB15, [id number] ####Textile Engineer: MARY SOTELO ([phone])[facility])[address] [place] [address] Glucose [Mass/Vol] 229 mg/dL High 70-100 [facility] Comment on above: Performed By: #### L [id number], LAB15, [id number] ####Textile Engineer: MARY SOTELO ([phone])[facility])[address] [place] [address] Potassium [Moles/Vol] 3.6 mmol/L Normal 3.5-5.[address] [facility] Comment on above: Performed By: #### L [id number], LAB15, [id number] ####Textile Engineer: MARY SOTELO ([phone])[facility] ([facility])[address] [place] [address] Sodium [Moles/Vol] 132 mmol/L Low 135-145 [facility] Comment on above: Performed By: #### L [id number], LAB15, [id number] ####Textile Engineer: MARY SOTELO ([phone])[facility])[address] [place] [address] [place] Urea nitrogen [Mass/Vol] 19 mg/dL High 7-17 [facility] Comment on above: Performed By: #### L [id number], LAB15, [id number] ####Textile Engineer: MARY SOTELO ([phone])[facility])[address] [place] [address] BLOOD CULTUREon 10-10-2024 Bacteria identified Cx Nom (Bld) Normal [facility] Comment on above: Performed By: #### L [id number] ####Textile Engineer: MARY SOTELO ([id number])[facility] ([facility])[address] [place] [address] Performed By: #### L [id number], [id number] ####Textile Engineer: MARY SOTELO ([phone])[facility] ([facility])[address] [place] [address] BLOOD CULTURE IDENTIFICATION - AEROBICon 08-12-2024 BLOOD CULTURE IDENTIFICATION - AEROBIC Normal [facility] Comment on above: Performed By: #### L [id number], [id number] ####Textile Engineer: MARY SOTELO ([id number])[facility] ([facility])[address] [place] [address] BLOOD GAS, VENOUSon 08-12-20 24 Base excess Calc (BldV) [Moles/Vol] -2.5000 mmol/L Normal -3.0-3.0 [facility] Comment on above: Performed By: #### L [id number] ####Textile Engineer: MARY SOTELO ([id number])[facility] ([facility])[address] [place] [address] CO2 [Moles/Vol] 26.1 mmol/L Normal 24.0-28.0 [facility] Comment on above: Performed By: #### L [id number] ####Textile Engineer: MARY SOTELO ([id number])[facility] ([facility])[address] [place] [address] HCO3 (Bld) [Moles/Vol] 24.5 mmol/L Normal 23.0-27.0 [facility] Comment on above: Performed By: #### L [id number] ####Textile Engineer: MARY SOTELO ([phone])[facility])[address] [place] [address] Hemoglobin (Bld) [Mass/Vol] 9.6 g/dL Normal Screen only [facility] Comment on above: Performed By: #### L [id number] ####Textile Engineer: MARY SOTELO ([id number])[facility])[address] [place] [address] OXYGEN (MM HG) IN VENOUS BLOOD 57.8 mm Hg Normal [facility] Comment on above: Performed By: #### L [id number] ####Textile Engineer: MARY SOTELO ([phone])[facility])[address] [place] [address] OXYGEN SATURATION (%) IN VENOUS BLOOD 89.0 % Normal [facility] Comment on above: Performed By: #### L [id number] ####Textile Engineer: MARY SOTELO ([phone])[address] PCO2, ROHIT 53.4 mm Hg Normal 40.0-55.0 [facility] Comment on above: Performed By: #### L [id number] ####Textile Engineer: MARY SOTELO ([phone])[facility])[address] [place] [address] PH VENOUS 7.279 Low 7.330-7.430 [facility] Comment on above: Performed By: #### L [id number] ####Textile Engineer: MARY SOTELO ([phone])[address] SOURCE OF OXYGEN 30% Oxygen Normal [facility] Comment on above: Result Comment: BINA Olivarez COMMENTS:Assessment of oxygenation is best done with an arterial blood gas determination. Reference ranges for pO2, bicarbonate, and base excess are for mixed venous blood. Specimens drawn from a peripheral vein will often have higher values. Performed By: #### L [id number] ####Textile Engineer: MARY SOTELO ([phone])[address] Base excess Calc (BldV) [Moles/Vol] -1.4000 mmol/L Normal -3.0-3.0 [facility] Comment on above: Performed By: #### L [id number] ####Textile Engineer: MARY [id number])[facility] [place] [address] [place] CO2 [Moles/Vol] 27.7 mmol/L Normal 24.0-28.0 [facility] Comment on above: Performed By: #### L [id number] ####Textile Engineer: MARY SOTELO ([phone])[facility] ([facility])[address] [place] [address] HCO3 (Bld) [Moles/Vol] 25.9 mmol/L Normal 23.0-27.0 [facility] Comment on above: Performed By: #### L [id number] ####Textile Engineer: MARY SOTELO ([id number])[facility] ([facility])[address] [place] [address] Hemoglobin (Bld) [Mass/Vol] 7.7 g/dL Normal Screen only [facility] Comment on above: Performed By: #### L [id number] ####Textile Engineer: MARY SOTELO ([phone])[facility] ([facility])[address] [place] [address] OXYGEN (MM HG) IN VENOUS BLOOD 73.2 mm Hg Normal [facility] Comment on above: Performed By: #### L [id number] ####Textile Engineer: MARY SOTELO ([phone])[facility] ([facility])[address] [place] [address] OXYGEN SATURATION (%) IN VENOUS BLOOD 94.9 % Normal [facility] Comment on above: Performed By: #### L [id number] ####Textile Engineer: MARY SOTELO ([id number])[facility] ([facility])[address] [place] [address] [place] PCO2, ROHIT 58.7 mm Hg High 40.0-55.0 [facility] Comment on above: Performed By: #### L [id number] ####Textile Engineer: MARY SOTELO ([id number])[facility] ([facility])[address] [place] [address] [place] PH VENOUS 7.262 Low 7.330-7.430 [facility] Comment on above: Performed By: #### L [id number] ####Textile Engineer: MARY SOTELO ([phone])[facility])[address] [place] [address] SOURCE OF OXYGEN Bi-PAP Normal [facility] Comment on above: Result Comment: BINA [...] higher values. Performed By: #### L [id number] ####Textile Engineer: MARY SOTELO ([phone])[facility] ([facility])[address] [place] [address] Base excess Calc (BldV) [Moles/Vol] -0.7000 mmol/L Normal -3.0-3.0 [facility] Comment on above: Performed By: #### L [id number] ####Textile Engineer: MARY SOTELO ([id number])[facility] ([facility])[address] [place] [address] CO2 [Moles/Vol] 33.5 mmol/L High 24.0-28.0 [facility] Comment on above: Performed By: #### L [id number] ####Textile Engineer: MARY SOTELO ([id number])[facility])[address] [place] [address] HCO3 (Bld) [Moles/Vol] 30.4 mmol/L High 23.0-27.0 [facility] Comment on above: Performed By: #### L [id number] ####Textile Engineer: MARY SOTELO ([phone])[facility])[address] [place] [address] Hemoglobin (Bld) [Mass/Vol] 9.1 g/dL Normal Screen only [facility] Comment on above: Performed By: #### L [id number] ####Textile Engineer: MARY SOTELO ([id number])[facility])[address] [place] [address] OXYGEN (MM HG) IN VENOUS BLOOD 44.4 mm Hg Normal [facility] Comment on above: Performed By: #### L [id number] ####Textile Engineer: MARY SOTELO ([id number])[facility] ([facility])[address] [place] [address] OXYGEN SATURATION (%) IN VENOUS BLOOD 74.5 % Normal [facility] Comment on above: Performed By: #### L [id number] ####Textile Engineer: MARY SOTELO ([id number])[facility] C[facility])[address] [place] [address] PCO2, ROHIT 101.8 mm Hg High 40.0-55.0 [facility] Comment on above: Performed By: #### L [id number] ####Textile Engineer: MARY SOTELO ([phone])[facility])[address] [place] [address] PH VENOUS 7.093 Low 7.330-7.430 [facility] Comment on above: Performed By: #### L AB79 ####Textile Engineer: MARY SOTELO ([phone])[facility])[address] [place] [address] SOURCE OF OXYGEN Nasal cannula Normal [facility] Comment on above: Result Comment: Heuy Schilling COMMENTS:Assessment of oxygenation is best done with an arterial blood gas determination. Reference ranges for pO2, bicarbonate, and base excess are for mixed venous blood. Specimens drawn from a peripheral vein will often have higher values.Interpret with caution, pO2 value falsely increased due to vacuum in tube. For accurate results, please draw on a syringe. Performed By: #### L AB79 ####Textile Engineer: MARY SOTELO ([phone])[facility] ([facility])[address] [place] [address] BLOOD TYPE AND SCREEN GELon 08-12-2024 ABO GROUPING O Normal [facility] Comment on above: Performed By: #### L [id number] ####Textile Engineer: MARY SOTELO ([phone])[facility] ([facility])[address] [place] [address] RH TYPE IN BLOOD Positive Normal [facility] Comment on above: Performed By: #### L [id number] ####Textile Engineer: MARY SOTELO ([id number])[facility] ([facility])[address] [place] [address] CBC WITH AUTO DIFFERENTIALon 08-12-2024 Basophils (Bld) [#/Vol] 0.0 10*3/uL Normal 0.0-0.2 [facility] Comment on above: Performed By: #### L [id number], [id number] ####Textile Engineer: MARY SOTELO ([phone])[facility])[address] [place] [address] Basophils/100 WBC (Bld) 0.8 % Normal 0.0-2.0 [facility] Comment on above: Performed By: #### L [id number], [id number] ####Textile Engineer: MARY SOTELO ([phone])[facility])[address] [place] [address] Eosinophils (Bld) [#/Vol] 0.1 10*3/uL Normal 0.0-0.5 [facility] Comment on above: Performed By: #### L [id number], [id number] ####Textile Engineer: MARY SOTELO ([id number])[facility])[address] [place] [address] Eosinophils/100 WBC (Bld) 2.9 % Normal 0.0-6.0 [facility] Comment on above: Performed By: #### L [id number], [id number] ####Textile Engineer: MARY SOTELO ([id number])[facility])[address] [place] [address] Erythrocyte distribution width (RBC) [Ratio] 16.4 % High 11.5-15.0 [facility] Comment on above: Performed By: #### L [id number], [id number] ####Textile Engineer: MARY [id number])[facility] [address] Hematocrit (Bld) [Volume fraction] 22.3 % Low 35.0-47.0 [facility] Comment on above: Performed By: #### Dora AB296, [id number] ####Textile Engineer: MARY SOTELO ([id number])[facility])[address] [place] [address] Hemoglobin (Bld) [Mass/Vol] 6.9 g/dL Critically low 11.7-16.0 [facility] Comment on above: Performed By: #### Dora [id number], [id number] ####Textile Engineer: MARY SOTELO ([phone])[facility])[address] [place] [address] IMMATURE GRANS % 0.5 % Normal 0.0-2.0 [facility] Comment on above: Performed By: #### Dora PARISH29Stefania [id number] ####Textile Engineer: MARY SOTELO ([phone])[facility] ([facility])[address] [place] [address] IMMATURE GRANS ABSOLUTE 0.0 10*3/uL Normal <0.1 [facility] Comment on above: Performed By: #### Dora AB296, [id number] ####Textile Engineer: MARY SOTELO ([phone])[facility])[address] [place] [address] IPF 4 Normal [facility] Comment on above: Performed By: #### Dora PARISH29Stefania, [id number] ####Textile Engineer: MARY SOTELO ([id number])[facility] ([facility])[address] [place] [address] Lymphocytes (Bld) [#/Vol] 0.6 10*3/uL Low 1.0-4.3 [facility] Comment on above: Performed By: #### Dora AB296, [id number] ####Textile Engineer: MARY SOTELO ([id number])[facility])[address] [place] [address] Lymphocytes/100 WBC (Bld) 14.8 % Low 15.0-45.0 [facility] Comment on above: Performed By: #### Dora [id number], [id number] ####Textile Engineer: MARY SOTELO ([phone])[facility])[address] [place] [address] MCH (RBC) [Entitic mass] 28.9 pg Normal 26.0-34.0 [facility] Comment on above: Performed By: #### Dora AB296, [id number] ####Textile Engineer: MARY SOTELO ([phone])[facility])[address] [place] [address] MCHC 30.9 % Normal 30.5-36.0 [facility] Comment on above: Performed By: #### Dora AB296, [id number] ####Textile Engineer: MARY SOTELO ([id number])[facility])[address] [place] [address] MCV (RBC) [Entitic vol] 93.3 fL Normal 77.0-99.0 [facility] Comment on above: Performed By: #### Dora AB296, [id number] ####Textile Engineer: MARY SOTELO ([id number])[facility])[address] [place] [address] Monocytes (Bld) [#/Vol] 0.2 10*3/uL Normal 0.0-0.9 [facility] Comment on above: Performed By: #### Dora [id number], [id number] ####Textile Engineer: MARY SOTELO ([phone])[facility])[address] [place] [address] Monocytes/100 WBC (Bld) 5.0 % Normal 5.0-13.0 [facility] Comment on above: Performed By: #### L [id number], [id number] ####Textile Engineer: MARY SOTELO ([phone])[facility])[address] [place] [address] NEUTROPHILS ABSOLUTE 2.9 10*3/uL Normal 1.8-7.5 [facility] Comment on above: Performed By: #### L [id number], [id number] ####Textile Engineer: MARY SOTELO ([id number])[facility] ([facility])[address] [place] [address] Neutrophils/100 WBC (Bld) 76.0 % Normal 38.0-82.0 [facility] Comment on above: Performed By: #### L [id number], [id number] ####Textile Engineer: MARY SOTELO ([id number])[facility] ([facility])[address] [place] [address] NRBC 0.0 /100 WBCs Normal 0.0-2.0 [facility] Comment on above: Performed By: #### L [id number], [id number] ####Textile Engineer: MARY SOTELO ([id number])[facility] ([facility])[address] [place] [address] Platelet mean volume (Bld) [Entitic vol] 10.6 fL Normal 9.0-12.7 [facility] Comment on above: Performed By: #### L [id number], [id number] ####Textile Engineer: MARY SOTELO ([phone])[facility] ([facility])[address] [place] [address] Platelets (Bld) [#/Vol] 85 10*3/uL Low 140-440 [facility] Comment on above: Performed By: #### L [id number], [id number] ####Textile Engineer: MARY SOTELO ([id number])[facility] ([facility])[address] [place] [address] [place] RBC (Bld) [#/Vol] 2.39 10*6/uL Low 3.80-5.20 [facility] Comment on above: Performed By: #### L [id number], [id number] ####Textile Engineer: MARY SOTELO ([id number])[facility] ([facility])[address] [place] [address] [place] WBC (Bld) [#/Vol] 3.8 10*3/uL Normal 3.6-10.7 [facility] Comment on above: Performed By: #### L [id number], [id number] ####Textile Engineer: MARY SOTELO ([id number])[facility])[address] [place] [address] Basophils (Bld) [#/Vol] 0.0 10*3/uL Normal 0.0-0.2 [facility] Comment on above: Performed By: #### L [id number] ####Textile Engineer: MARY SOTELO ([id number])[facility] ([facility])[address] [place] [address] Basophils/100 WBC (Bld) 0.8 % Normal 0.0-2.0 [facility] Comment on above: Performed By: #### L [id number] ####Textile Engineer: MARY SOTELO ([id number])[facility])[address] [place] [address] Eosinophils (Bld) [#/Vol] 0.1 10*3/uL Normal 0.0-0.5 [facility] Comment on above: Performed By: #### L [id number] ####Textile Engineer: MARY SOTELO ([id number])[facility])[address] [place] [address] Eosinophils/100 WBC (Bld) 2.5 % Normal 0.0-6.0 [facility] Comment on above: Performed By: #### L [id number] ####Textile Engineer: MARY SOTELO ([phone])[facility])[address] [place] [address] Erythrocyte distribution width (RBC) [Ratio] 16.5 % High 11.5-15.0 [facility] Comment on above: Performed By: #### L [id number] ####Textile Engineer: MARY SOTELO ([id number])[facility])[address] [place] [address] Hematocrit (Bld) [Volume fraction] 26.5 % Low 35.0-47.0 [facility] Comment on above: Performed By: #### L [id number] ####Textile Engineer: MARY SOTELO ([id number])[facility])[address] [place] [address] Hemoglobin (Bld) [Mass/Vol] 7.9 g/dL Low 11.7-16.0 [facility] Comment on above: Performed By: #### L [id number] ####Textile Engineer: MARY SOTELO ([phone])[facility])[address] [place] [address] IMMATURE GRANS % 0.6 % Normal 0.0-2.0 [facility] Comment on above: Performed By: #### L [id number] ####Textile Engineer: MARY SOTELO ([phone])[facility])[address] [place] [address] IMMATURE GRANS ABSOLUTE 0.0 10*3/uL Normal <0.1 [facility] Comment on above: Performed By: #### L [id number] ####Textile Engineer: MARY SOTELO ([phone])[facility])[address] [place] [address] [place] IPF 5 Normal [facility] Comment on above: Performed By: #### L [id number] ####Textile Engineer: MARY SOTELO ([phone])[facility])[address] [place] [address] Lymphocytes (Bld) [#/Vol] 1.3 10*3/uL Normal 1.0-4.3 [facility] Comment on above: Performed By: #### L [id number] ####Textile Engineer: MARY SOTELO ([phone])[facility])[address] [place] [address] [place] Lymphocytes/100 WBC (Bld) 27.1 % Normal 15.0-45.0 [facility] Comment on above: Performed By: #### L [id number] ####Textile Engineer: MARY SOTELO ([phone])[facility])[address] [place] [address] MCH (RBC) [Entitic mass] 28.4 pg Normal 26.0-34.0 [facility] Comment on above: Performed By: #### L [id number] ####Textile Engineer: MARY SOTELO ([phone])[facility])[address] [place] [address] MCHC 29.8 % Low 30.5-36.0 [facility] Comment on above: Performed By: #### L [id number] ####Textile Engineer: MARY SOTELO ([id number])[facility])[address] [place] [address] MCV (RBC) [Entitic vol] 95.3 fL Normal 77.0-99.0 [facility] Comment on above: Performed By: #### L [id number] ####Textile Engineer: MARY SOTELO ([phone])[facility])[address] [place] [address] Monocytes (Bld) [#/Vol] 0.6 10*3/uL Normal 0.0-0.9 [facility] Comment on above: Performed By: #### L [id number] ####Textile Engineer: MARY SOTELO ([phone])[facility])[address] [place] [address] Monocytes/100 WBC (Bld) 13.4 % High 5.0-13.0 [facility] Comment on above: Performed By: #### L [id number] ####Textile Engineer: MARY SOTELO ([phone])[facility])[address] [place] [address] NEUTROPHILS ABSOLUTE 2.7 10*3/uL Normal 1.8-7.5 [facility] Comment on above: Performed By: #### L [id number] ####Textile Engineer: MARY SOTELO ([phone])[facility])[address] [place] [address] Neutrophils/100 WBC (Bld) 55.6 % Normal 38.0-82.0 [facility] Comment on above: Performed By: #### L [id number] ####Textile Engineer: MARY SOTELO ([phone])[facility] ([facility])[address] [place] [address] NRBC 0.0 /100 WBCs Normal 0.0-2.0 [facility] Comment on above: Performed By: #### L [id number] ####Textile Engineer: MARY SOTELO ([id number])[facility] ([facility])[address] [place] [address] Platelet mean volume (Bld) [Entitic vol] 11.3 fL Normal 9.0-12.7 [facility] Comment on above: Performed By: #### L [id number] ####Textile Engineer: MARY SOTELO ([phone])[facility] ([facility])[address] [place] [address] Platelets (Bld) [#/Vol] 89 10*3/uL Low 140-440 [facility] Comment on above: Performed By: #### L [id number] ####Textile Engineer: MARY SOTELO ([phone])[facility] ([facility])[address] [place] [address] RBC (Bld) [#/Vol] 2.78 10*6/uL Low 3.80-5.20 [facility] Comment on above: Performed By: #### L [id number] ####Textile Engineer: MARY SOTELO ([phone])[facility] ([facility])[address] [place] [address] WBC (Bld) [#/Vol] 4.8 10*3/uL Normal 3.6-10.7 [facility] Comment on above: Performed By: #### L [id number] ####Textile Engineer: MARY SOTEOL ([phone])[facility])[address] [place] [address] COMPREHENSIVE METABOLIC PANE [place] 08-12-2024 Albumin [Mass/Vol] 2.9 g/dL Low 3.5-5.0 [facility] Comment on above: Performed By: #### L [id number] ####Textile Engineer: MARY SOTELO ([phone])[facility] ([facility])[address] [place] [address] [place] ALP [Catalytic activity/Vol] 52 U/L Normal 38-126 [facility] Comment on above: Performed By: #### L [id number] ####Textile Engineer: MARY SOTELO ([phone])[facility] ([facility])[address] [place] [address] [place] ALT [Catalytic activity/Vol] 13 U/L Normal 0-34 [facility] Comment on above: Performed By: #### L AB17 ####Textile Engineer: MARY SOTELO ([id number])[facility] ([facility])[address] [place] [address] Anion gap [Moles/Vol] 7 mmol/L Normal 3-13 [facility] Comment on above: Performed By: #### L [id number] ####Textile Engineer: MARY SOTELO ([phone])[facility] ([facility])[address] [place] [address] AST [Catalytic activity/Vol] 18 U/L Normal 15-46 [facility] Comment on above: Performed By: #### L [id number] ####Textile Engineer: MARY SOTELO ([phone])[facility] ([facility])[address] [place] [address] Bilirubin [Mass/Vol] 0.9 mg/dL Normal 0.2-1.3 [facility] Comment on above: Performed By: #### L AB17 ####Textile Engineer: MARY SOTELO ([phone])[facility] ([facility])[address] [place] [address] [place] Calcium [Mass/Vol] 6.9 mg/dL Low 8.4-10.4 [facility] Comment on above: Performed By: #### L [id number] ####Textile Engineer: MARY SOTELO ([phone])[facility] ([facility])[address] [place] [address] [place] Chloride [Moles/Vol] 100 mmol/L Normal 98-107 [facility] Comment on above: Performed By: #### L [id number] ####Textile Engineer: MARY SOTELO ([id number])[facility])[address] [place] [address] CO2 [Moles/Vol] 22 mmol/L Normal 22-30 [facility] Comment on above: Performed By: #### L AB17 ####Textile Engineer: MARY SOTELO ([phone])[facility])[address] [place] [address] Creatinine [Mass/Vol] 2.56 mg/dL High 0.52-1.[address] [facility] Comment on above: Performed By: #### L AB17 ####Textile Engineer: MARY SOTELO ([phone])[facility])[address] [place] [address] GLOMERULAR FILTRATION RATE ML/MIN/1.73 SQ M.PREDICTED 20.4 mL/min/1.73m*2 Low >60.0 [facility] Comment on above: Result Comment: Calc ulation based on the Chronic Kidney Disease Epidemiology Collaboration (CKD-EPI) equation refit without adjustment for race Performed By: #### L AB17 ####Textile Engineer: MARY SOTELO ([phone])[facility])[address] [place] [address] Glucose [Mass/Vol] 220 mg/dL High 70-100 [facility] Comment on above: Performed By: #### L AB17 ####Textile Engineer: MARY SOTELO ([phone])[facility])[address] [place] [address] [place] Potassium [Moles/Vol] 4.2 mmol/L Normal 3.5-5.[address] [facility] Comment on above: Performed By: #### L AB17 ####Textile Engineer: MARY SOTELO ([phone])[facility])[address] [place] [address] [place] Protein [Mass/Vol] 5.2 g/dL Low 6.3-8.2 [facility] Comment on above: Performed By: #### L AB17 ####Textile Engineer: MARY SOTELO ([id number])[address] Sodium [Moles/Vol] 130 mmol/L Low 135-145 [facility] Comment on above: Performed By: #### L AB17 ####Textile Engineer: MARY SOTELO ([phone])[address] Urea nitrogen [Mass/Vol] 20 mg/dL High 7-17 [facility] Comment on above: Performed By: #### L AB17 ####Textile Engineer: MARY SOTELO ([id number])[address] HEAD NECK ANGIO W AND WO IV CONTRASTon 08-12-2024 CT HEAD NECK ANGIO W AND WO IV CONTRAST Normal [facility] CT HEAD WO IV CONTRASTon CT HEAD WO IV CONTRAST Normal [facility] CT HEAD WO IV CONTRAST Normal [facility] CT Head WO contraston [address] evidence of an acute intracranial abnormality. Previous small right frontal convexity subdural hemorrhage is no longer identified. New left greater than right mastoid effusions, nonspecific. No evidence of coalescence. Left middle ear effusion. Correlate with symptoms to exclude any potential infectious or inflammatory process. Report Dictated on Electronically Signed By: Reece Mckniley MD Electronically Signed Date/Time: 08/12/2024 8:18 AM [facility] [employer] Patient Name: SANDY DENG : 1960 Exam [...] Electronically Signed Date/Time: 08/12/2024 8:18 AM EDT [facility] CT Head WO contrastOrdered B y: Reece Mckinley on 08-12-2024 [facility] [employer] Work Phone: CT PERFUSIONon 08-12-2024 CT PERFUSION Normal [facility] Consulton 08-12-2024 Consult Normal [facility] ECG 12-LEADon 08-12-2024 ECG 12-LEAD IMPRESSION: Sinus rhythm Consider left ventricular hypertrophy Electronically Signed On 08-12-2024 18:40:59 EDT by Fabrizio Guillory Normal [facility] ED Nursing Noteon 08-12-2024 ED Nursing Note Report given to Jordon Doan RN 08/12/24 1634 Normal [facility] ED Nursing Note ICU at bedside. Clari Bronson RN 08/12/24 1517 Normal [facility] ED Provider Noteon ED Provider Note Normal [facility] FERRITINon 08-12-2024 Ferritin [Mass/Vol] 231 ng/mL Normal 11-264 [facility] Comment on above: Performed By: #### L AB69, LAB68, [id number], LAB67 ####Textile Engineer: MARY SOTELO ([phone])[facility] ([facility])[address] [place] [address] FOLATEon 08-12-2024 FOLATE RESULT 10.8 ng/mL Normal >=2.9 [facility] Comment on above: Performed By: #### L AB69, LAB68, [id number], LAB67 ####Textile Engineer: MARY SOTELO ([phone])[facility] ([facility])[address] [place] [address] [place] IDNon 08-12-2024 IDN Normal [facility] IRON AND TIBCon 08-12-2024 IRON BINDING CAPACITY 158 ug/dL Low 261-497 [facility] Comment on above: Performed By: #### L [id number] ####Textile Engineer: MARY SOTELO ([phone])[facility])[address] [place] [address] IRON SATURATION 45 % Normal 15-50 [facility] Comment on above: Performed By: #### L [id number] ####Textile Engineer: MARY SOTELO ([phone])[facility])[address] [place] [address] IRON, TOTAL 71 ug/dL Normal 37-170 [facility] Comment on above: Performed By: #### L [id number] ####Textile Engineer: MARY SOTELO ([phone])[facility])[address] [place] [address] LACTIC ACID WITH REFLEXon Lactate [Moles/Vol] 1.6 mmol/L Normal 0.7-2.0 [facility] Comment on above: Performed By: #### L [id number] ####Textile Engineer: MARY SOTELO ([phone])[facility] ([facility])[address] [place] [address] NT PRO BNPon 08-12-2024 NT PRO BNP >54789 High <125 [facility] Comment on above: Performed By: #### L [id number], [id number], [id number] ####Textile Engineer: MARY SOTELO ([phone])[facility] ([facility])[address] [place] [address] Nursing Noteon 08-12-2024 Nursing Note Normal [facility] RETICULOCYTESon 08-12-2024 Reticulocytes/100 RBC (Bld) 2.41 % Normal [facility] Comment on above: Result Comment: Newb orn < 5%Adults 0.4 - 2.0% Performed By: #### L [id number], [id number] ####Textile Engineer: MARY SOTELO ([phone])[facility] ([facility])[address] [place] [address] TROPONIN Ion 08-12-2024 Troponin I.cardiac [Mass/Vol] 0.052 ng/mL High <0.034 [facility] Comment on above: Result Comment: BINA R COMMENTS:Patients with high levels of Biotin oral intake (ie >5 mg/day) may have falsely decreased Troponin levels. Performed By: #### L AB69, LAB68, [id number], LAB67 ####Textile Engineer: MARY SOTELO ([phone])[facility])[address] [place] [address] Troponin I.cardiac [Mass/Vol] 0.046 ng/mL High <0.034 [facility] Comment on above: Result Comment: BINA R COMMENTS:Patients with high levels of Biotin oral intake (ie >5 mg/day) may have falsely decreased Troponin levels. Performed By: #### L [id number] ####Textile Engineer: MARY SOTELO ([phone])[address] TROPONIN, WITH SERIAL REFLEX on 08-12-2024 Troponin I.cardiac [Mass/Vol] 0.046 ng/mL High <0.034 [facility] Comment on above: Result Comment: BINA Olivarez COMMENTS:Patients with high levels of Biotin oral intake (ie >5 mg/day) may have falsely decreased Troponin levels. Performed By: #### L [id number], LAB15, [id number] ####Textile Engineer: MARY SOTELO ([id number])[facility] ([facility])[address] [place] [address] VITAMIN B12on 08-12-2024 Cobalamin (Vitamin B12) [Mass/Vol] 932 pg/mL High 239-931 [facility] Comment on above: Performed By: #### L AB69, LAB68, [id number], LAB67 ####Textile Engineer: MARY SOTELO ([phone])[facility])[address] [place] [address] CARECOORDon 08-11-2024 [place] Patient Choice Patient Name: SANDY DENG Date of : 1960 [address] [facility] [address] Head WO contraston 2023 Radiology Study observation (narrative) [facility] Progress Noteon 08-11-2024 Progress Note Normal [facility] BASIC METABOLIC PANELon 10 Anion gap [Moles/Vol] 2 mmol/L Low 3-[address] [facility] Comment on above: Performed By: #### L AB113, [id number], LAB15 ####Textile Engineer: MARY SOTELO ([id number])[facility] ([facility])[address] [place] [address] Calcium [Mass/Vol] 6.6 mg/dL Low 8.4-10.4 [facility] Comment on above: Performed By: #### L AB113, [id number], LAB15 ####Textile Engineer: MARY SOTELO ([id number])[facility] [place] [address] Chloride [Moles/Vol] 102 mmol/L Normal 98-107 [facility] Comment on above: Performed By: #### L AB113, [id number], LAB15 ####Textile Engineer: MARY SOTELO ([id number])[facility] [place] [address] CO2 [Moles/Vol] 33 mmol/L High 22-30 [facility] Comment on above: Performed By: #### L AB113, [id number], LAB15 ####Textile Engineer: MARY SOTELO ([phone])[facility])[address] [place] [address] Creatinine [Mass/Vol] 2.85 mg/dL High 0.52-1.[address] [facility] Comment on above: Performed By: #### L AB113, [id number], LAB15 ####Textile Engineer: MARY SOTELO ([phone])[facility])[address] [place] [address] [place] GLOMERULAR FILTRATION RATE ML/MIN/1.73 SQ M.PREDICTED 17.9 mL/min/1.73m*2 Low >60.0 [facility] Comment on above: Result Comment: Calc ulation based on the Chronic Kidney Disease Epidemiology Collaboration (CKD-EPI) equation refit without adjustment for race Performed By: #### Dora AB113, [id number], LAB15 ####Textile Engineer: MARY SOTELO ([phone])[facility] ([facility])[address] [place] [address] Glucose [Mass/Vol] 110 mg/dL High 70-100 [facility] Comment on above: Performed By: #### Dora AB113, [id number], LAB15 ####Textile Engineer: MARY SOTELO ([phone])[facility] ([facility])[address] [place] [address] Potassium [Moles/Vol] 4.2 mmol/L Normal 3.5-5.[address] [facility] Comment on above: Performed By: #### Dora AB113, [id number], LAB15 ####Textile Engineer: MARY SOTELO ([phone])[facility] ([facility])[address] [place] [address] Sodium [Moles/Vol] 138 mmol/L Normal 135-145 [facility] Comment on above: Performed By: #### Dora ABGabbie, [id number], LAB15 ####Textile Engineer: MARY SOTELO ([phone])[facility])[address] [place] [address] Urea nitrogen [Mass/Vol] 25 mg/dL High 7-17 [facility] Comment on above: Performed By: #### Dora ABGabbie, [id number], LAB15 ####Textile Engineer: MARY SOTELO ([phone])[facility])[address] [place] [address] Basic metabolic 1998 panelon 08-10-2024 Anion gap [Moles/Vol] 2 mmol/L Low 3 - 13 mmol/L [facility] Calcium [Mass/Vol] 6.6 mg/dL Low 8.4 - 10. 4 mg/dL [facility] Chloride [Moles/Vol] 102 mmol/L 98 - 10 7 mmol/L [facility] CO2 [Moles/Vol] 33 mmol/L High 22 - 30 mmol/L [facility] Creatinine [Mass/Vol] 2.85 mg/dL High 0.52 - 1.04 mg/dL [facility] GFR/1.73 sq M.predicted (S/P/Bld) [Vol rate/Area] 17.9 mL/min Low - PINF [facility] Glucose [Mass/Vol] 110 mg/dL High 70 - 100 mg/dL [facility] Interpretation and review of laboratory results Abnormal [facility] Potassium [Moles/Vol] 4.2 mmol/L 3.5 - 5.1 mmol/L [facility] Sodium [Moles/Vol] 138 mmol/L 135 - 145 mmol/L [facility] Urea nitrogen [Mass/Vol] 25 mg/dL High 7 - 17 mg/dL [facility] C3, BLOODon 08-10-2024 C3, BLOOD 64 mg/dL Low 88-165 [facility] Comment on above: Performed By: #### L [id number], [id number] ####Textile Engineer: MARLENY GUZMÁN ([phone])[facility] ([facility])[address] [place] [address] C4 COMPLEMENTon 08-10-2024 C4, BLOOD 13 mg/dL Low 14-44 [facility] Comment on above: Performed By: #### L [id number], [id number] ####Textile Engineer: MARLENY GUZMÁN ([phone])[facility] ([facility])[address] [place] [address] CARECOORDon 08-10-2024 [facility] Normal [facility] Normal [facility] CARECOOMRO Transportation set v ia cot through [facility] for today 08-10-24 [facility], RN, Funeral Pre Need Consultant, facility, Pt, and Pt's Jose notified. Normal [facility]charge med [facility] per TCC request. Normal [facility] She is approved 08/09-08/16 to [facility], eligibility worker to send mar today . Med team notified of auth and need discharge orders . Done. SW to arrange transport today . Normal [facility] CBC W Auto Differential pane l (Bld)on 08-10-2024 Basophils (Bld) [#/Vol] 0.0 10*3/uL 0.0 - 0.2 10*3/uL [facility] Basophils/100 WBC (Bld) 0.2 % 0.0 - 2.0 % [facility] Eosinophils (Bld) [#/Vol] 0.3 10*3/uL 0.0 - 0.5 10*3/uL [facility] Eosinophils/100 WBC (Bld) 5.2 % 0.0 - 6.0 % [facility] Erythrocyte distribution width (RBC) [Ratio] 17.2 % High 11.5 - 15.0 % [facility] Hematocrit (Bld) [Volume fraction] 26.2 % Low 35.0 - 47.0 % [facility] Hemoglobin (Bld) [Mass/Vol] 7.8 g/dL Low 11.7 - 16.0 g/dL [facility] Immature granulocytes (Bld) [#/Vol] 0.1 10*3/uL High NINF - 0.1 10*3/uL [facility] Immature granulocytes/100 WBC (Bld) 0.8 % 0.0 - 2.0 % [facility] Interpretation and review of laboratory results Abnormal [facility] IPF 4 [facility] Lymphocytes (Bld) [#/Vol] 1.0 10*3/uL 1.0 - 4.3 10*3/uL [facility] Lymphocytes/100 WBC (Bld) 16.2 % 15.0 - 45.0 % [facility] MCH (RBC) [Entitic mass] 28.5 pg 26.0 - 34.0 pg [facility] MCHC (RBC) [Mass/Vol] 29.8 % Low 30.5 - 36.0 % [facility] MCV (RBC) [Entitic vol] 95.6 fL 77.0 - 99.0 fL [facility] Monocytes (Bld) [#/Vol] 0.4 10*3/uL 0.0 - 0.9 10*3/uL [facility] Monocytes/100 WBC (Bld) 6.2 % 5.0 - 13.0 % [facility] Neutrophils (Bld) [#/Vol] 4.3 10*3/uL 1.8 - 7.5 10*3/uL [facility] Neutrophils/100 WBC (Bld) 71.4 % 38.0 - 82.0 % [facility] Nucleated RBC/100 WBC (Bld) [Ratio] 0.0 % [facility] Platelet mean volume (Bld) [Entitic vol] 10.7 fL 9.0 - 12.7 fL [facility] Platelets (Bld) [#/Vol] 95 10*3/uL Low 140 - 440 10*3/uL [facility] RBC (Bld) [#/Vol] 2.74 10*6/uL Low 3.80 - 5.2 0 10*6/uL [facility] WBC (Bld) [#/Vol] 6.0 10*3/uL 3.6 - 10.7 10*3/uL [facility] CBC WITH AUTO DIFFERENTIALon 08-10-2024 Basophils (Bld) [#/Vol] 0.0 10*3/uL Normal 0.0-0.2 [facility] Comment on above: Performed By: #### L [id number] ####Textile Engineer: MARY SOTELO ([phone])[facility])[address] [place] [address] Basophils/100 WBC (Bld) 0.2 % Normal 0.0-2.0 [facility] Comment on above: Performed By: #### L [id number] ####Textile Engineer: MARY SOTELO ([id number])[facility] ([facility])[address] [place] [address] [place] Eosinophils (Bld) [#/Vol] 0.3 10*3/uL Normal 0.0-0.5 [facility] Comment on above: Performed By: #### L [id number] ####Textile Engineer: MARY SOTELO ([id number])[facility] ([facility])[address] [place] [address] [place] Eosinophils/100 WBC (Bld) 5.2 % Normal 0.0-6.0 [facility] Comment on above: Performed By: #### L [id number] ####Textile Engineer: MARY SOTELO ([id number])[address] Erythrocyte distribution width (RBC) [Ratio] 17.2 % High 11.5-15.0 [facility] Comment on above: Performed By: #### L [id number] ####Textile Engineer: MARY SOTELO ([id number])[address] Hematocrit (Bld) [Volume fraction] 26.2 % Low 35.0-47.0 [facility] Comment on above: Performed By: #### L [id number] ####Textile Engineer: MARY SOTELO ([phone])[address] Hemoglobin (Bld) [Mass/Vol] 7.8 g/dL Low 11.7-16.0 [facility] Comment on above: Performed By: #### L [id number] ####Textile Engineer: MARY SOTELO ([id number])[address] IMMATURE GRANS % 0.8 % [facility]2.[facility] Comment on above: Performed By: #### L [id number] ####Textile Engineer: MARY SOTELO ([id number])[address] IMMATURE GRANS ABSOLUTE 0.1 10*3/uL High <0.1 [facility] Comment on above: Performed By: #### L [id number] ####Textile Engineer: MARY SOTELO ([id number])[address] IPF 4 Normal [facility] Comment on above: Performed By: #### L [id number] ####Textile Engineer: MARY SOTELO ([id number])[facility] ([facility])[address] [place] [address] Lymphocytes (Bld) [#/Vol] 1.0 10*3/uL Normal 1.0-4.3 [facility] Comment on above: Performed By: #### L [id number] ####Textile Engineer: MARY SOTELO ([id number])[facility])[address] [place] [address] Lymphocytes/100 WBC (Bld) 16.2 % Normal 15.0-45.0 [facility] Comment on above: Performed By: #### L [id number] ####Textile Engineer: MARY SOTELO ([phone])[facility])[address] [place] [address] MCH (RBC) [Entitic mass] 28.5 pg Normal 26.0-34.0 [facility] Comment on above: Performed By: #### L [id number] ####Textile Engineer: MARY SOTELO ([phone])[facility])[address] [place] [address] MCHC 29.8 % Low 30.5-36.0 [facility] Comment on above: Performed By: #### L [id number] ####Textile Engineer: MARY SOTELO ([id number])[facility])[address] [place] [address] MCV (RBC) [Entitic vol] 95.6 fL Normal 77.0-99.0 [facility] Comment on above: Performed By: #### L [id number] ####Textile Engineer: MARY SOTELO ([id number])[facility])[address] [place] [address] Monocytes (Bld) [#/Vol] 0.4 10*3/uL Normal 0.0-0.9 [facility] Comment on above: Performed By: #### L [id number] ####Textile Engineer: MARY SOTELO ([phone])[facility])[address] [place] [address] Monocytes/100 WBC (Bld) 6.2 % Normal 5.0-13.0 [facility] Comment on above: Performed By: #### L [id number] ####Textile Engineer: MARY SOTELO ([id number])[facility] ([facility])[address] [place] [address] NEUTROPHILS ABSOLUTE 4.3 10*3/uL Normal 1.8-7.5 [facility] Comment on above: Performed By: #### L [id number] ####Textile Engineer: MARY SOTELO ([id number])[facility] ([facility])[address] [place] [address] Neutrophils/100 WBC (Bld) 71.4 % Normal 38.0-82.0 [facility] Comment on above: Performed By: #### L [id number] ####Textile Engineer: MARY SOTELO ([id number])[facility] ([facility])[address] [place] [address] NRBC 0.0 /100 WBCs Normal 0.0-2.0 [facility] Comment on above: Performed By: #### L [id number] ####Textile Engineer: MARY SOTELO ([id number])[facility] ([facility])[address] [place] [address] Platelet mean volume (Bld) [Entitic vol] 10.7 fL Normal 9.0-12.7 [facility] Comment on above: Performed By: #### L [id number] ####Textile Engineer: MARY SOTELO ([id number])[facility] ([facility])[address] [place] [address] Platelets (Bld) [#/Vol] 95 10*3/uL Low 140-440 [facility] Comment on above: Performed By: #### L [id number] ####Textile Engineer: MARY SOTELO ([id number])[facility] ([facility])[address] [place] [address] RBC (Bld) [#/Vol] 2.74 10*6/uL Low 3.80-5.20 [facility] Comment on above: Performed By: #### L [id number] ####Textile Engineer: MARY SOTELO ([id number])[facility])[address] [place] [address] WBC (Bld) [#/Vol] 6.0 10*3/uL Normal 3.6-10.7 [facility] Comment on above: Performed By: #### L [id number] ####Textile Engineer: MARY SOTELO ([id number])[facility])[address] [place] [address] GLUCOSE, RANDOMon 08-10-2024 Glucose [Mass/Vol] 61 mg/dL Low 70-100 [facility] Comment on above: Performed By: #### L [id number] ####Textile Engineer: MARY SOTELO ([phone])[facility])[address] [place] [address] Glucose (Bld) [Mass/Vol]on 1 Glucose [Mass/Vol] 61 mg/dL Low 70 - 100 mg/dL [facility] Interpretation and review of laboratory results Abnormal [facility] IDNon 08-10-2024 IDN Normal [facility] Laboratory - Chemistry and C hemistry - challengeon 08-10-2024 Glucose [Mass/Vol] 119 mg/dL High 70 - 100 mg/dL [facility] Glucose [Mass/Vol] 109 mg/dL High 70 - 100 mg/dL [facility] Glucose [Mass/Vol] 102 mg/dL High 70 - 100 mg/dL [facility] Glucose [Mass/Vol] 96 mg/dL 70 - 100 mg/dL [facility] Glucose [Mass/Vol] 103 mg/dL High 70 - 100 mg/dL [facility] Glucose [Mass/Vol] 65 mg/dL Low 70 - 100 mg/dL [facility] Magnesium [Mass/Vol] 1.8 mg/dL 1.6 - 2 .3 mg/dL [facility] Laboratory - Hematology and Cell countson 08-10-2024 Complement C3 [Mass/Vol] 64 mg/dL Low 88 - 165 mg/dL [facility] Complement C4 [Mass/Vol] 13 mg/dL Low 14 - 44 mg/dL [facility] MAGNESIUMon 08-10-2024 Magnesium [Mass/Vol] 1.8 mg/dL Normal 1.6-2.3 [facility] Comment on above: Performed By: #### L ABGabbie, [id number], LAB15 ####Textile Engineer: MARY SOTELO ([id number])[facility] ([facility])[address] [place] [address] No Panel Informationon 08-10 Interpretation and review of laboratory results Abnormal [facility] Interpretation and review of laboratory results Abnormal [facility] Interpretation and review of laboratory results Abnormal [facility] Interpretation and review of laboratory results Abnormal [facility] Interpretation and review of laboratory results Abnormal [facility] Interpretation and review of laboratory results Normal [facility] Interpretation and review of laboratory results Abnormal [facility] Interpretation and review of laboratory results Abnormal [facility] Interpretation and review of laboratory results Normal [facility] Nursing Noteon 08-10-2024 Nursing Note Report [facility] This RN verified with Dr. Espana that pt is leaving with johnson catheter. Normal [facility] Nursing Note Normal [facility] PHOSPHORUSon 08-10-2024 Phosphate [Mass/Vol] 4.5 mg/dL Normal 2.5-4.5 [facility] Comment on above: Performed By: #### L ABGabbie, [id number], LAB15 ####Textile Engineer: MARY SOTELO ([phone])[facility] [place] [address] Phosphate [Moles/Vol]on Phosphate [Mass/Vol] 4.5 mg/dL 2.5 - 4 .5 mg/dL [facility] Progress Noteon 08-10-2024 Progress Note Normal [facility] Progress Note Normal [facility] BASIC METABOLIC PANELon Anion gap [Moles/Vol] 1 mmol/L Low 3-[address] [facility] Comment on above: Performed By: #### L AB113, [id number], LAB15 ####Textile Engineer: MARY SOTELO ([id number])[facility])[address] [place] [address] Calcium [Mass/Vol] 6.9 mg/dL Low 8.4-10.4 [facility] Comment on above: Performed By: #### Dora AB113, [id number], LAB15 ####Textile Engineer: MARY SOTELO ([id number])[facility] ([facility])[address] [place] [address] Chloride [Moles/Vol] 105 mmol/L Normal 98-107 [facility] Comment on above: Performed By: #### Dora AB113, [id number], LAB15 ####Textile Engineer: MARY SOTELO ([id number])[facility] ([facility])[address] [place] [address] CO2 [Moles/Vol] 30 mmol/L Normal 22-30 [facility] Comment on above: Performed By: #### Dora AB113, [id number], LAB15 ####Textile Engineer: MARY SOTELO ([phone])[facility] ([facility])[address] [place] [address] Creatinine [Mass/Vol] 2.30 mg/dL High 0.52-1.[address] [facility] Comment on above: Performed By: #### Dora AB113, [id number], LAB15 ####Textile Engineer: MARY SOTELO ([phone])[facility])[address] [place] [address] [place] GLOMERULAR FILTRATION RATE ML/MIN/1.73 SQ M.PREDICTED 23.2 mL/min/1.73m*2 Low >60.0 [facility] Comment on above: Result Comment: Calc ulation based on the Chronic Kidney Disease Epidemiology Collaboration (CKD-EPI) equation refit without adjustment for race Performed By: #### L AB113, [id number], LAB15 ####Textile Engineer: MARY SOTELO ([id number])[facility] ([facility])[address] [place] [address] [place] Glucose [Mass/Vol] 69 mg/dL Low 70-100 [facility] Comment on above: Performed By: #### L AB113, [id number], LAB15 ####Textile Engineer: MARY SOTELO ([phone])[facility] [place] [address] Potassium [Moles/Vol] 4.3 mmol/L Normal 3.5-5.[address] [facility] Comment on above: Performed By: #### L AB113, [id number], LAB15 ####Textile Engineer: MARY SOTELO ([id number])[facility] ([facility])[address] [place] [address] Sodium [Moles/Vol] 136 mmol/L Normal 135-145 [facility] Comment on above: Performed By: #### Dora AB113, [id number], LAB15 ####Textile Engineer: MARY SOTELO ([id number])[facility] [place] [address] Urea nitrogen [Mass/Vol] 22 mg/dL High 7-17 [facility] Comment on above: Performed By: #### L AB113, [id number], LAB15 ####Textile Engineer: MARY SOTELO ([id number])[facility] ([facility])[address] [place] [address] Basic metabolic 1998 panelon 08-09-2024 Anion gap [Moles/Vol] 1 mmol/L Low 3 - 13 mmol/L [facility] Calcium [Mass/Vol] 6.9 mg/dL Low 8.4 - 10. 4 mg/dL [facility] Chloride [Moles/Vol] 105 mmol/L 98 - 10 7 mmol/L [facility] CO2 [Moles/Vol] 30 mmol/L 22 - 30 mmol/L [facility] Creatinine [Mass/Vol] 2.30 mg/dL High 0.52 - 1.04 mg/dL [facility] GFR/1.73 sq M.predicted (S/P/Bld) [Vol rate/Area] 23.2 mL/min Low - PINF [facility] Glucose [Mass/Vol] 69 mg/dL Low 70 - 100 mg/dL [facility] Interpretation and review of laboratory results Abnormal [facility] Potassium [Moles/Vol] 4.3 mmol/L 3.5 - 5.1 mmol/L [facility] Sodium [Moles/Vol] 136 mmol/L 135 - 145 mmol/L [facility] Urea nitrogen [Mass/Vol] 22 mg/dL High 7 - 17 mg/dL [facility] CARECOORDon 08-09-2024 CARECOORD Normal [facility] CARECOOMRO Normal [facility] CBC W Auto Differential pane l (Bld)on 08-09-2024 Basophils (Bld) [#/Vol] 0.0 10*3/uL 0.0 - 0.2 10*3/uL [facility] Basophils/100 WBC (Bld) 0.4 % 0.0 - 2.0 % [facility] Eosinophils (Bld) [#/Vol] 0.3 10*3/uL 0.0 - 0.5 10*3/uL [facility] Eosinophils/100 WBC (Bld) 4.3 % 0.0 - 6.0 % [facility] Erythrocyte distribution width (RBC) [Ratio] 17.2 % High 11.5 - 15.0 % [facility] Hematocrit (Bld) [Volume fraction] 26.6 % Low 35.0 - 47.0 % [facility] Hemoglobin (Bld) [Mass/Vol] 8.1 g/dL Low 11.7 - 16.0 g/dL [facility] Immature granulocytes (Bld) [#/Vol] 0.1 10*3/uL High NINF - 0.1 10*3/uL [facility] Immature granulocytes/100 WBC (Bld) 0.8 % 0.0 - 2.0 % [facility] Interpretation and review of laboratory results Abnormal [facility] IPF 3 [facility] Lymphocytes (Bld) [#/Vol] 1.3 10*3/uL 1.0 - 4.3 10*3/uL [facility] Lymphocytes/100 WBC (Bld) 17.0 % 15.0 - 45.0 % [facility] MCH (RBC) [Entitic mass] 28.8 pg 26.0 - 34.0 pg [facility] MCHC (RBC) [Mass/Vol] 30.5 % 30.5 - 36.0 % [facility] MCV (RBC) [Entitic vol] 94.7 fL 77.0 - 99.0 fL [facility] Monocytes (Bld) [#/Vol] 0.5 10*3/uL 0.0 - 0.9 10*3/uL [facility] Monocytes/100 WBC (Bld) 6.1 % 5.0 - 13.0 % [facility] Neutrophils (Bld) [#/Vol] 5.5 10*3/uL 1.8 - 7.5 10*3/uL [facility] Neutrophils/100 WBC (Bld) 71.4 % 38.0 - 82.0 % [facility] [employer] Nucleated RBC/100 WBC (Bld) [Ratio] 0.0 % [facility] [employer] Platelet mean volume (Bld) [Entitic vol] 10.5 fL 9.0 - 12.7 fL [facility] Platelets (Bld) [#/Vol] 108 10*3/uL Low 140 - 440 10*3/uL [facility] RBC (Bld) [#/Vol] 2.81 10*6/uL Low 3.80 - 5.2 0 10*6/uL [facility] WBC (Bld) [#/Vol] 7.7 10*3/uL 3.6 - 10.7 10*3/uL [facility] CBC WITH AUTO DIFFERENTIALon 08-09-2024 Basophils (Bld) [#/Vol] 0.0 10*3/uL Normal 0.0-0.2 [facility] Comment on above: Performed By: #### L [id number] ####Textile Engineer: MARY SOTELO ([id number])[address] Basophils/100 WBC (Bld) 0.4 % Normal 0.0-2.0 [facility] Comment on above: Performed By: #### L [id number] ####Textile Engineer: MARY SOTELO ([phone])[facility])[address] [place] [address] Eosinophils (Bld) [#/Vol] 0.3 10*3/uL Normal 0.0-0.5 [facility] Comment on above: Performed By: #### L [id number] ####Textile Engineer: MARY SOTELO ([id number])[facility] ([facility])[address] [place] [address] Eosinophils/100 WBC (Bld) 4.3 % Normal 0.0-6.0 [facility] Comment on above: Performed By: #### L [id number] ####Textile Engineer: MARY SOTELO ([id number])[facility])[address] [place] [address] Erythrocyte distribution width (RBC) [Ratio] 17.2 % High 11.5-15.0 [facility] Comment on above: Performed By: #### L [id number] ####Textile Engineer: MARY SOTELO ([id number])[facility])[address] [place] [address] Hematocrit (Bld) [Volume fraction] 26.6 % Low 35.0-47.0 [facility] Comment on above: Performed By: #### L [id number] ####Textile Engineer: MARY SOTELO ([phone])[facility])[address] [place] [address] Hemoglobin (Bld) [Mass/Vol] 8.1 g/dL Low 11.7-16.0 [facility] Comment on above: Performed By: #### L [id number] ####Textile Engineer: MARY SOTELO ([phone])[facility])[address] [place] [address] IMMATURE GRANS % 0.8 % Normal 0.0-2.0 [facility] Comment on above: Performed By: #### L [id number] ####Textile Engineer: MARY SOTELO ([phone])[facility])[address] [place] [address] IMMATURE GRANS ABSOLUTE 0.1 10*3/uL High <0.1 [facility] Comment on above: Performed By: #### L [id number] ####Textile Engineer: MARY SOTLEO ([phone])[facility])[address] [place] [address] [place] IPF 3 Normal [facility] Comment on above: Performed By: #### L [id number] ####Textile Engineer: MARY SOTELO ([phone])[facility])[address] [place] [address] Lymphocytes (Bld) [#/Vol] 1.3 10*3/uL Normal 1.0-4.3 [facility] Comment on above: Performed By: #### L [id number] ####Textile Engineer: MARY SOTELO ([phone])[facility])[address] [place] [address] Lymphocytes/100 WBC (Bld) 17.0 % Normal 15.0-45.0 [facility] Comment on above: Performed By: #### L [id number] ####Textile Engineer: MARY SOTELO ([phone])[facility])[address] [place] [address] MCH (RBC) [Entitic mass] 28.8 pg Normal 26.0-34.0 [facility] Comment on above: Performed By: #### L [id number] ####Textile Engineer: MARY SOTELO ([phone])[facility])[address] [place] [address] MCHC 30.5 % Normal 30.5-36.0 [facility] Comment on above: Performed By: #### L [id number] ####Textile Engineer: MARY SOTELO ([phone])[address] MCV (RBC) [Entitic vol] 94.7 fL Normal 77.0-99.0 [facility] Comment on above: Performed By: #### L [id number] ####Textile Engineer: MARY SOTELO ([phone])[facility])[address] [place] [address] Monocytes (Bld) [#/Vol] 0.5 10*3/uL Normal 0.0-0.9 [facility] Comment on above: Performed By: #### L [id number] ####Textile Engineer: MARY SOTELO ([phone])[facility] ([facility])[address] [place] [address] [place] Monocytes/100 WBC (Bld) 6.1 % Normal 5.0-13.0 [facility] Comment on above: Performed By: #### L [id number] ####Textile Engineer: MARY SOTELO ([phone])[facility] ([facility])[address] [place] [address] NEUTROPHILS ABSOLUTE 5.5 10*3/uL Normal 1.8-7.5 [facility] Comment on above: Performed By: #### L [id number] ####Textile Engineer: MARY SOTELO ([phone])[facility])[address] [place] [address] Neutrophils/100 WBC (Bld) 71.4 % Normal 38.0-82.0 [facility] Comment on above: Performed By: #### L [id number] ####Textile Engineer: MARY SOTELO ([id number])[facility] ([facility])[address] [place] [address] NRBC 0.0 /100 WBCs Normal 0.0-2.0 [facility] Comment on above: Performed By: #### L [id number] ####Textile Engineer: MARY SOTELO ([phone])[facility] ([facility])[address] [place] [address] Platelet mean volume (Bld) [Entitic vol] 10.5 fL Normal 9.0-12.7 [facility] Comment on above: Performed By: #### L [id number] ####Textile Engineer: MARY SOTELO ([phone])[facility] ([facility])[address] [place] [address] [place] Platelets (Bld) [#/Vol] 108 10*3/uL Low 140-440 [facility] Comment on above: Performed By: #### L [id number] ####Textile Engineer: MARY SOTELO ([phone])[facility] ([facility])[address] [place] [address] RBC (Bld) [#/Vol] 2.81 10*6/uL Low 3.80-5.20 [facility] Comment on above: Performed By: #### L [id number] ####Textile Engineer: MARY SOTELO ([phone])[facility] ([facility])[address] [place] [address] WBC (Bld) [#/Vol] 7.7 10*3/uL Normal 3.6-10.7 [facility] Comment on above: Performed By: #### L [id number] ####Textile Engineer: MARY SOTELO ([phone])[facility] ([facility])[address] [place] [address] COMPLETE URINALYSISon 2023 BACTERIA (#/HPF) IN URINE Moderate Abnormal Negative [facility] Comment on above: Performed By: #### L [id number] ####Textile Engineer: MARY SOTELO ([phone])[facility] ([facility])[address] [place] [address] BILIRUBIN, TOTAL PRESENCE IN URINE Negative Normal Negative [facility] Comment on above: Performed By: #### L [id number] ####Textile Engineer: MARY SOTELO ([phone])[facility])[address] [place] [address] Clarity (U) Extra Turbid Abnormal Clear [facility] Comment on above: Performed By: #### L [id number] ####Textile Engineer: MARY SOTELO ([phone])[facility] ([facility])[address] [place] [address] Color (U) Yellow Normal Lt. Yellow [facility] Comment on above: Performed By: #### L [id number] ####Textile Engineer: MARY SOTELO ([phone])[facility])[address] [place] [address] Glucose (U) [Mass/Vol] 50 mg/dL Normal Normal (<70) [facility] Comment on above: Performed By: #### L [id number] ####Textile Engineer: MARY SOTELO ([phone])[facility] ([facility])[address] [place] [address] HEMOGLOBIN PRESENCE IN URINE >1.0 Abnormal Negative [facility] Comment on above: Performed By: #### L [id number] ####Textile Engineer: MARY SOTELO ([phone])[facility] ([facility])[address] [place] [address] HYALINE CASTS (#/LPF) IN URINE SEDIMENT BY MICROSCOPY Negative Normal Negative [facility] Comment on above: Performed By: #### L [id number] ####Textile Engineer: MARY SOTELO ([phone])[facility])[address] [place] [address] Ketones Ql (U) Negative Normal Negative [facility] Comment on above: Performed By: #### L [id number] ####Textile Engineer: MARY SOTELO ([id number])[facility] ([facility])[address] [place] [address] LEUKOCYTE ESTERASE PRESENCE IN URINE BY TEST STRIP 500 Bere/uL Abnormal Negative [facility] Comment on above: Performed By: #### L [id number] ####Textile Engineer: MARY SOTELO ([phone])[facility])[address] [place] [address] NITRITE PRESENCE IN URINE Negative Normal Negative [facility] Comment on above: Performed By: #### L [id number] ####Textile Engineer: MARY SOTELO ([phone])[facility] ([facility])[address] [place] [address] pH (U) 5.0 [pH] Normal 5.0-8.0 [facility] Comment on above: Performed By: #### L [id number] ####Textile Engineer: MARY SOTELO ([id number])[facility])[address] [place] [address] Protein (U) [Mass/Vol] 70 mg/dL Abnormal Negative [facility] Comment on above: Performed By: #### L [id number] ####Textile Engineer: MARY [id number])[facility] ([facility])[address] [place] [address] [place] RBC (#/HPF) IN URINE SEDIMENT >100 Abnormal 0-2 [facility] Comment on above: Performed By: #### L [id number] ####Textile Engineer: MARY SOTELO ([phone])[facility])[address] [place] [address] Specific gravity (U) [Rel density] 1.007 Normal 1.005-1.030 [facility] Comment on above: Performed By: #### L [id number] ####Textile Engineer: MARY SOTELO ([phone])[facility] ([facility])[address] [place] [address] SQUAMOUS EPITHELIAL CELLS (#/HPF) IN URINE SEDIMENT 3-5 Normal 3-5 [facility] Comment on above: Performed By: #### L [id number] ####Textile Engineer: MARY SOTELO ([phone])[facility])[address] [place] [address] [place] UROBILINOGEN (MG/DL) IN URINE Normal Normal Normal (0-1) [facility] Comment on above: Performed By: #### L [id number] ####Textile Engineer: MARY SOTELO ([id number])[facility])[address] [place] [address] [place] WBC (LEUKOCYTE) (#/HPF) IN URINE SEDIMENT >100 Abnormal 0-5 [facility] Comment on above: Performed By: #### L [id number] ####Textile Engineer: MARY SOTELO ([phone])[facility])[address] [place] [address] [place] WBC (LEUKOCYTE) CLUMPS (#/HPF) IN URINE SEDIMENT Many Abnormal Negative [facility] Comment on above: Performed By: #### L [id number] ####Textile Engineer: MARY SOTELO ([id number])[facility] ([facility])[address] [place] [address] [place] YEAST (#/HPF) IN URINE Loaded Abnormal Negative [facility] Comment on above: Performed By: #### L [id number] ####Textile Engineer: MARY SOTELO ([id number])[facility])[address] [place] [address] [place] CREATININE, URINE, RANDOMon 08-09-2024 CREATININE, URINE 41.3 mg/dL Normal No Range [facility] Comment on above: Performed By: #### L [id number], [id number] ####Textile Engineer: MARY SOTELO ([phone])[facility] ([facility])[address] [place] [address] Creatinine (U) [Mass/Vol]on 08-09-2024 CREATININE, URINE 41.3 mg/dL No [facility] GLUCOSE, RANDOMon 08-09-2024 Glucose [Mass/Vol] 216 mg/dL High 70-100 [facility] Comment on above: Performed By: #### L [id number] ####Textile Engineer: MARY SOTELO ([phone])[facility])[address] [place] [address] Glucose (Bld) [Mass/Vol]on 1 Glucose [Mass/Vol] 216 mg/dL High 70 - 100 mg/dL [facility] Interpretation and review of laboratory results Abnormal [facility] IDNon 08-09-2024 IDN Normal [facility] IDN Normal [facility] - Chemistry and C hemistry - challengeon 08-09-2024 Glucose [Mass/Vol] 164 mg/dL High 70 - 100 mg/dL [facility] Glucose [Mass/Vol] 264 mg/dL High 70 - 100 mg/dL [facility] Glucose [Mass/Vol] 246 mg/dL High 70 - 100 mg/dL [facility] Glucose [Mass/Vol] 153 mg/dL High 70 - 100 mg/dL [facility] Glucose [Mass/Vol] 144 mg/dL High 70 - 100 mg/dL [facility] Glucose [Mass/Vol] 115 mg/dL High 70 - 100 mg/dL [facility] Glucose [Mass/Vol] mg/dL Low 70 - 100 mg/dL [facility] Glucose [Mass/Vol] 83 mg/dL 70 - 100 mg/dL [facility] Glucose [Mass/Vol] 70 mg/dL 70 - 100 mg/dL [facility] Glucose [Mass/Vol] mg/dL Low 70 - 100 mg/dL [facility] Magnesium [Mass/Vol] 1.8 mg/dL 1.6 - 2 .3 mg/dL [facility] Laboratory - Urinalysison Protein (U) [Mass/Vol] 107 mg/dL High 0 - 12 mg/dL [facility] MAGNESIUMon 08-09-2024 Magnesium [Mass/Vol] 1.8 mg/dL Normal 1.6-2.3 [facility] Comment on above: Performed By: #### L [id number], [id number], [id number] ####Textile Engineer: MARY SOTELO ([phone])[address] Magnesium [Mass/Vol]on 08-09 Interpretation and review of laboratory results Normal [facility] No Panel Informationon 08-09 Interpretation and review of laboratory results Abnormal [facility] Interpretation and review of laboratory results Abnormal [facility] Interpretation and review of laboratory results Abnormal [facility] Interpretation and review of laboratory results Abnormal [facility] Interpretation and review of laboratory results Abnormal [facility] Interpretation and review of laboratory results Abnormal [facility] Interpretation and review of laboratory results Abnormal [facility] Interpretation and review of laboratory results Abnormal [facility] Interpretation and review of laboratory results Normal [facility] Interpretation and review of laboratory results Normal [facility] Interpretation and review of laboratory results Abnormal [facility] Nursing Noteon 08-09-2024 Nursing Note Normal [facility] PHOSPHORUSon 08-09-2024 Phosphate [Mass/Vol] 4.1 mg/dL Normal 2.5-4.5 [facility] Comment on above: Performed By: #### L [id number], [id number], LAB15 ####Textile Engineer: MARY SOTELO ([phone])[facility])[address] [place] [address] PROTEIN, URINE, RANDOMon Protein (U) [Mass/Vol] 107 mg/dL High 0-12 [facility] Comment on above: Performed By: #### L [id number], [id number] ####Textile Engineer: MARY SOTELO ([id number])[facility] ([facility])[address] [place] [address] Phosphate [Moles/Vol]on Interpretation and review of laboratory results Normal [facility] Phosphate [Mass/Vol] 4.1 mg/dL 2.5 - 4 .5 mg/dL [facility] Progress Noteon 08-09-[address] [facility] Progress Note Normal [facility] Progress Note Normal [facility] Progress Note Normal [facility] Progress Note Normal [facility] URINE CULTUREon 08-09-2024 Bacteria identified Cx Nom (U) Normal [facility] Comment on above: Performed By: #### L [id number] ####Textile Engineer: MARY SOTELO ([id number])[facility] ([facility])[address] [place] [address] Urinalysis complete panel (U )on 08-09-2024 Bacteria LM.HPF (Urine sed) [#/Area] Moderate Abnormal Negative /HPF [facility] Bilirubin Ql (U) Negative Negative mg/dL [facility] Clarity (U) Extra Turbid [facility]normal [facility] Yellow Lt. Yellow [facility] Epithelial cells.squamous LM.HPF (Urine sed) [#/Area] 3-5 [facility] Glucose Ql (U) 50 mg/dL Normal (<70[facility] Hemoglobin Ql (U) >1.0 Abnormal Negative mg/dL [facility] Hyaline casts Auto (Urine sed) [#/Area] Negative Negative /LPF [facility] Interpretation and review of laboratory results Abnormal [facility] Ketones (U) [Mass/Vol] Negative Negat pawan mg/dL [facility] Leukocyte clumps LM.HPF (Urine sed) [#/Area] Many Abnormal Negative /HPF [facility] Leukocyte esterase Test strip Ql (U) 500 Abnormal Negative Bere/uL [facility] Nitrite Ql (U) Negative Negative [facility] th pH (U) 5.0 [pH] 5.0 - 8.0 pH [facility] Protein (U) [Mass/Vol] 70 mg/dL Abnormal Negative [facility] RBC LM.HPF (Urine sed) [#/Area] /[HPF] Abnormal [facility] Specific gravity (U) [Rel density] 1.007 1.005 - 1.030 [facility] Urobilinogen (U) [Mass/Vol] Normal Normal (0-1) mg/dL [facility] WBC LM.HPF (Urine sed) [#/Area] /[HPF] Abnormal [facility] Yeast.budding LM.HPF (Urine sed) [#/Area] Loaded Abnormal Negative /HPF [facility] ALBUMINon 08-08-2024 Albumin [Mass/Vol] 2.7 g/dL Low 3.5-5.0 [facility] Comment on above: Performed By: #### L AB45, [id number], LAB15, [id number] ####Textile Engineer: MARY SOTELO ([phone])[facility] ([facility])[address] [place] [address] BASIC METABOLIC PANELon 10-0 Anion gap [Moles/Vol] 2 mmol/L Low 3-[address] [facility] Comment on above: Performed By: #### L AB45, [id number], LAB15, [id number] ####Textile Engineer: MARY SOTELO ([phone])[facility] ([facility])[address] [place] [address] Calcium [Mass/Vol] 6.9 mg/dL Low 8.4-10.4 [facility] Comment on above: Performed By: #### L AB45, [id number], LAB15, [id number] ####Textile Engineer: MARY SOTELO ([phone])[facility] ([facility])[address] [place] [address] [place] Chloride [Moles/Vol] 100 mmol/L Normal 98-107 [facility] Comment on above: Performed By: #### L AB45, [id number], LAB15, [id number] ####Textile Engineer: MARY SOTELO ([id number])[facility] ([facility])[address] [place] [address] [place] CO2 [Moles/Vol] 32 mmol/L High 22-30 [facility] Comment on above: Performed By: #### L AB45, [id number], LAB15, [id number] ####Textile Engineer: MARY SOTELO ([id number])[facility])[address] [place] [address] Creatinine [Mass/Vol] 1.51 mg/dL High 0.52-1.[address] [facility] Comment on above: Performed By: #### L AB45, [id number], LAB15, [id number] ####Textile Engineer: MARY SOTELO ([phone])[facility] ([facility])[address] [place] [address] [place] GLOMERULAR FILTRATION RATE ML/MIN/1.73 SQ M.PREDICTED 38.4 mL/min/1.73m*2 Low >60.0 [facility] Comment on above: Result Comment: Calc ulation based on the Chronic Kidney Disease Epidemiology Collaboration (CKD-EPI) equation refit without adjustment for race Performed By: #### L AB45, [id number], LAB15, [id number] ####Textile Engineer: MARY SOTELO ([phone])[facility] ([facility])[address] [place] [address] [place] Glucose [Mass/Vol] 293 mg/dL High 70-100 [facility] Comment on above: Performed By: #### L AB45, [id number], LAB15, [id number] ####Textile Engineer: MARY SOTELO ([phone])[facility])[address] [place] [address] [place] Potassium [Moles/Vol] 3.7 mmol/L Normal 3.5-5.[address] [facility] Comment on above: Performed By: #### L AB45, [id number], LAB15, [id number] ####Textile Engineer: MARY SOTELO ([phone])[facility])[address] [place] [address] [place] Sodium [Moles/Vol] 134 mmol/L Low 135-145 [facility] Comment on above: Performed By: #### L AB45, [id number], LAB15, [id number] ####Textile Engineer: MARY SOTELO ([id number])[facility] ([facility])[address] [place] [address] Urea nitrogen [Mass/Vol] 14 mg/dL Normal 7-17 [facility] Comment on above: Performed By: #### L AB45, [id number], LAB15, [id number] ####Textile Engineer: MARY SOTELO ([id number])[facility] ([facility])[address] [place] [address] Basic metabolic 1998 panelon 08-08-2024 Anion gap [Moles/Vol] 2 mmol/L Low 3 - 13 mmol/L [facility] Calcium [Mass/Vol] 6.9 mg/dL Low 8.4 - 10. 4 mg/dL [facility] Chloride [Moles/Vol] 100 mmol/L 98 - 10 7 mmol/L [facility] CO2 [Moles/Vol] 32 mmol/L High 22 - 30 mmol/L [facility] Creatinine [Mass/Vol] 1.51 mg/dL High 0.52 - 1.04 mg/dL [facility] GFR/1.73 sq M.predicted (S/P/Bld) [Vol rate/Area] 38.4 mL/min Low - PINF [facility] Glucose [Mass/Vol] 293 mg/dL High 70 - 100 mg/dL [facility] Potassium [Moles/Vol] 3.7 mmol/L 3.5 - 5.1 mmol/L [facility] Sodium [Moles/Vol] 134 mmol/L Low 135 - 145 mmol/L [facility] Urea nitrogen [Mass/Vol] 14 mg/dL 7 - 17 mg/dL [facility] CBC W Auto Differential pane l (Bld)on 08-08-2024 Basophils (Bld) [#/Vol] 0.0 10*3/uL 0.0 - 0.2 10*3/uL [facility] Basophils/100 WBC (Bld) 0.1 % 0.0 - 2.0 % [facility] Eosinophils (Bld) [#/Vol] 0.3 10*3/uL 0.0 - 0.5 10*3/uL [facility] Eosinophils/100 WBC (Bld) 4.0 % 0.0 - 6.0 % [facility] Erythrocyte distribution width (RBC) [Ratio] 17.2 % High 11.5 - 15.0 % [facility] Hematocrit (Bld) [Volume fraction] 28.9 % Low 35.0 - 47.0 % [facility] Hemoglobin (Bld) [Mass/Vol] 8.7 g/dL Low 11.7 - 16.0 g/dL [facility] Immature granulocytes (Bld) [#/Vol] 0.1 10*3/uL High NINF - 0.1 10*3/uL [facility] Immature granulocytes/100 WBC (Bld) 1.3 % 0.0 - 2.0 % [facility] Interpretation and review of laboratory results Abnormal [facility] IPF 3 [facility] Lymphocytes (Bld) [#/Vol] 0.9 10*3/uL Low 1.0 - 4.3 10*3/uL [facility] Lymphocytes/100 WBC (Bld) 11.8 % Low 15.0 - 45.0 % [facility] MCH (RBC) [Entitic mass] 28.8 pg 26.0 - 34.0 pg [facility] MCHC (RBC) [Mass/Vol] 30.1 % Low 30.5 - 36.0 % [facility] MCV (RBC) [Entitic vol] 95.7 fL 77.0 - 99.0 fL [facility] Monocytes (Bld) [#/Vol] 0.3 10*3/uL 0.0 - 0.9 10*3/uL [facility] Monocytes/100 WBC (Bld) 4.5 % Low 5.0 - 13.0 % [facility] Neutrophils (Bld) [#/Vol] 5.9 10*3/uL 1.8 - 7.5 10*3/uL [facility] Neutrophils/100 WBC (Bld) 78.3 % 38.0 - 82.0 % [facility] Nucleated RBC/100 WBC (Bld) [Ratio] 0.0 % [facility] Platelet mean volume (Bld) [Entitic vol] 10.8 fL 9.0 - 12.7 fL [facility] Platelets (Bld) [#/Vol] 118 10*3/uL Low 140 - 440 10*3/uL [facility] RBC (Bld) [#/Vol] 3.02 10*6/uL Low 3.80 - 5.2 0 10*6/uL [facility] WBC (Bld) [#/Vol] 7.6 10*3/uL 3.6 - 10.7 10*3/uL [facility] CBC WITH AUTO DIFFERENTIALon 08-08-2024 Basophils (Bld) [#/Vol] 0.0 10*3/uL Normal 0.0-0.2 [facility] Comment on above: Performed By: #### L [id number] ####Textile Engineer: MARY SOTELO ([phone])[facility])[address] [place] [address] Basophils/100 WBC (Bld) 0.1 % Normal 0.0-2.0 [facility] Comment on above: Performed By: #### L [id number] ####Textile Engineer: MARY SOTELO ([phone])[facility])[address] [place] [address] Eosinophils (Bld) [#/Vol] 0.3 10*3/uL Normal 0.0-0.5 [facility] Comment on above: Performed By: #### L [id number] ####Textile Engineer: MARY SOTELO ([phone])[facility])[address] [place] [address] Eosinophils/100 WBC (Bld) 4.0 % Normal 0.0-6.0 [facility] Comment on above: Performed By: #### L [id number] ####Textile Engineer: MARY SOTELO ([phone])[facility])[address] [place] [address] Erythrocyte distribution width (RBC) [Ratio] 17.2 % High 11.5-15.0 [facility] Comment on above: Performed By: #### L [id number] ####Textile Engineer: MARY SOTELO ([phone])[facility])[address] [place] [address] [place] Hematocrit (Bld) [Volume fraction] 28.9 % Low 35.0-47.0 [facility] Comment on above: Performed By: #### L [id number] ####Textile Engineer: MARY SOTELO ([phone])[facility])[address] [place] [address] Hemoglobin (Bld) [Mass/Vol] 8.7 g/dL Low 11.7-16.0 [facility] Comment on above: Performed By: #### L [id number] ####Textile Engineer: MARY SOTELO ([phone])[facility])[address] [place] [address] IMMATURE GRANS % 1.3 % Normal 0.0-2.0 [facility] Comment on above: Performed By: #### L [id number] ####Textile Engineer: MARY SOTELO ([phone])[facility])[address] [place] [address] IMMATURE GRANS ABSOLUTE 0.1 10*3/uL High <0.1 [facility] Comment on above: Performed By: #### L [id number] ####Textile Engineer: MARY SOTELO ([phone])[facility])[address] [place], [place] [address] [place] IPF 3 Normal [facility] Comment on above: Performed By: #### L [id number] ####Textile Engineer: MARY SOTELO ([phone])[facility])[address] [place] [address] Lymphocytes (Bld) [#/Vol] 0.9 10*3/uL Low 1.0-4.3 [facility] Comment on above: Performed By: #### L [id number] ####Textile Engineer: MARY SOTELO ([phone])[facility])[address] [place] [address] Lymphocytes/100 WBC (Bld) 11.8 % Low 15.0-45.0 [facility] Comment on above: Performed By: #### L [id number] ####Textile Engineer: MARY SOTELO ([phone])[facility] ([facility])[address] [place] [address] MCH (RBC) [Entitic mass] 28.8 pg Normal 26.0-34.0 [facility] Comment on above: Performed By: #### L [id number] ####Textile Engineer: MARY SOTELO ([phone])[facility])[address] [place] [address] MCHC 30.1 % Low 30.5-36.0 [facility] Comment on above: Performed By: #### L [id number] ####Textile Engineer: MARY SOTELO ([phone])[facility])[address] [place] [address] MCV (RBC) [Entitic vol] 95.7 fL Normal 77.0-99.0 [facility] Comment on above: Performed By: #### L [id number] ####Textile Engineer: MARY SOTELO ([phone])[facility] ([facility])[address] [place] [address] Monocytes (Bld) [#/Vol] 0.3 10*3/uL Normal 0.0-0.9 [facility] Comment on above: Performed By: #### L [id number] ####Textile Engineer: MARY SOTELO ([phone])[facility])[address] [place] [address] Monocytes/100 WBC (Bld) 4.5 % Low 5.0-13.0 [facility] Comment on above: Performed By: #### L [id number] ####Textile Engineer: MARY SOTELO ([phone])[facility])[address] [place] [address] NEUTROPHILS ABSOLUTE 5.9 10*3/uL Normal 1.8-7.5 [facility] Comment on above: Performed By: #### L [id number] ####Textile Engineer: MARY SOTELO ([phone])[facility])[address] [place] [address] [place] Neutrophils/100 WBC (Bld) 78.3 % Normal 38.0-82.0 [facility] Comment on above: Performed By: #### L [id number] ####Textile Engineer: MARY SOTELO ([phone])[facility] ([facility])[address] [place] [address] NRBC 0.0 /100 WBCs Normal 0.0-2.0 [facility] Comment on above: Performed By: #### L [id number] ####Textile Engineer: MARY SOTELO ([phone])[facility] ([facility])[address] [place] [address] Platelet mean volume (Bld) [Entitic vol] 10.8 fL Normal 9.0-12.7 [facility] Comment on above: Performed By: #### L [id number] ####Textile Engineer: MARY SOTELO ([phone])[facility] ([facility])[address] [place] [address] [place] Platelets (Bld) [#/Vol] 118 10*3/uL Low 140-440 [facility] Comment on above: Performed By: #### L [id number] ####Textile Engineer: MARY SOTELO ([phone])[facility] ([facility])[address] [place] [address] RBC (Bld) [#/Vol] 3.02 10*6/uL Low 3.80-5.20 [facility] Comment on above: Performed By: #### L [id number] ####Textile Engineer: MARY SOTELO ([phone])[facility] ([facility])[address] [place] [address] [place] WBC (Bld) [#/Vol] 7.6 10*3/uL Normal 3.6-10.7 [facility] Comment on above: Performed By: #### L [id number] ####Textile Engineer: MARY SOTELO ([phone])[facility] ([facility])[address] [place] [address] [place] IDNon 08-08-2024 IDN Normal [facility] IDN Normal [facility] Laboratory - Chemistry and C hemistry - challengeon 08-08-2024 Glucose [Mass/Vol] 218 mg/dL High 70 - 100 mg/dL [facility] Glucose [Mass/Vol] 245 mg/dL High 70 - 100 mg/dL [facility] Glucose [Mass/Vol] 334 mg/dL High 70 - 100 mg/dL [facility] Glucose [Mass/Vol] 314 mg/dL High 70 - 100 mg/dL [facility] Albumin [Mass/Vol] 2.7 g/dL Low 3.5 - 5.0 g/dL [facility] Magnesium [Mass/Vol] 1.7 mg/dL 1.6 - 2 .3 mg/dL [facility] MAGNESIUMon 08-08-2024 Magnesium [Mass/Vol] 1.7 mg/dL Normal 1.6-2.3 [facility] Comment on above: Performed By: #### L [id number], [id number], LAB15, [id number] ####Textile Engineer: MARY SOTELO ([phone])[address] Magnesium [Mass/Vol]on 08-08 Interpretation and review of laboratory results Normal [facility] No Panel Informationon 08-08 Interpretation and review of laboratory results Abnormal [facility] Interpretation and review of laboratory results Abnormal [facility] Interpretation and review of laboratory results Abnormal [facility] Interpretation and review of laboratory results Abnormal [facility] Interpretation and review of laboratory results Abnormal [facility] Interpretation and review of laboratory results Abnormal [facility] PHOSPHORUSon 08-08-2024 Phosphate [Mass/Vol] 2.1 mg/dL Low 2.5-4.5 [facility] Comment on above: Performed By: #### L AB45, [id number], LAB15, [id number] ####Textile Engineer: MARY SOTELO ([phone])[facility] ([facility])[address] [place] [address] [place] Phosphate [Moles/Vol]on Phosphate [Mass/Vol] 2.1 mg/dL Low 2.5 - 4 .5 mg/dL [facility] Progress Noteon 08-08-2024 Progress Note Normal [facility] Progress Note Normal [facility] Progress Note Normal [facility] XR CHEST 1 VIEWon 08-08-2024 XR CHEST 1 VIEW Normal [facility] XR Chest Single viewon 08-08 [facility] Radiology Study observation (narrative) [facility] XR Chest Single viewOrdered By: Kalia Foy on 08-08-2024 [facility] [employer] Work Phone: BASIC METABOLIC PANELon Anion gap [Moles/Vol] 1 mmol/L Low 3-13 [facility] Comment on above: Performed By: #### L [id number], [id number], LAB15 ####Textile Engineer: MARY SOTELO ([phone])[facility])[address] [place] [address] Calcium [Mass/Vol] 6.9 mg/dL Low 8.4-10.4 [facility] Comment on above: Performed By: #### L AB103, [id number], LAB15 ####Textile Engineer: MARY SOTELO ([id number])[facility] ([facility])[address] [place] [address] Chloride [Moles/Vol] 102 mmol/L Normal 98-107 [facility] Comment on above: Performed By: #### L AB103, [id number], LAB15 ####Textile Engineer: MARY SOTELO ([phone])[facility])[address] [place] [address] CO2 [Moles/Vol] 31 mmol/L High 22-30 [facility] Comment on above: Performed By: #### L AB103, [id number], LAB15 ####Textile Engineer: MARY SOTELO ([phone])[facility])[address] [place] [address] Creatinine [Mass/Vol] 2.07 mg/dL High 0.52-1.[address] [facility] Comment on above: Performed By: #### L AB103, [id number], LAB15 ####Textile Engineer: MARY SOTELO ([phone])[facility])[address] [place] [address] GLOMERULAR FILTRATION RATE ML/MIN/1.73 SQ M.PREDICTED 26.3 mL/min/1.73m*2 Low >60.0 [facility] Comment on above: Result Comment: Calc ulation based on the Chronic Kidney Disease Epidemiology Collaboration (CKD-EPI) equation refit without adjustment for race Performed By: #### Dora AB103, [id number], LAB15 ####Textile Engineer: MARY SOTELO ([id number])[facility] ([facility])[address] [place] [address] Glucose [Mass/Vol] 141 mg/dL High 70-100 [facility] Comment on above: Performed By: #### Dora AB103, [id number], LAB15 ####Textile Engineer: MARY SOTELO ([phone])[facility])[address] [place] [address] Potassium [Moles/Vol] 4.2 mmol/L Normal 3.5-5.[address] [facility] Comment on above: Performed By: #### Dora AB103, [id number], LAB15 ####Textile Engineer: MARY SOTELO ([phone])[facility] ([facility])[address] [place] [address] Sodium [Moles/Vol] 134 mmol/L Low 135-145 [facility] Comment on above: Performed By: #### Dora AB103, [id number], LAB15 ####Textile Engineer: MARY SOTELO ([id number])[facility] ([facility])[address] [place] [address] [place] Urea nitrogen [Mass/Vol] 23 mg/dL High 7-17 [facility] Comment on above: Performed By: #### L AB103, [id number], LAB15 ####Textile Engineer: MARY SOTELO ([phone])[facility])[address] [place] [address] Basic metabolic 1998 panelon 08-07-2024 Anion gap [Moles/Vol] 1 mmol/L Low 3 - 13 mmol/L [facility] Calcium [Mass/Vol] 6.9 mg/dL Low 8.4 - 10. 4 mg/dL [facility] Chloride [Moles/Vol] 102 mmol/L 98 - 10 7 mmol/L [facility] CO2 [Moles/Vol] 31 mmol/L High 22 - 30 mmol/L [facility] Creatinine [Mass/Vol] 2.07 mg/dL High 0.52 - 1.04 mg/dL [facility] GFR/1.73 sq M.predicted (S/P/Bld) [Vol rate/Area] 26.3 mL/min Low - PINF [facility] Glucose [Mass/Vol] 141 mg/dL High 70 - 100 mg/dL [facility] Interpretation and review of laboratory results Abnormal [facility] Potassium [Moles/Vol] 4.2 mmol/L 3.5 - 5.1 mmol/L [facility] Sodium [Moles/Vol] 134 mmol/L Low 135 - 145 mmol/L [facility] Urea nitrogen [Mass/Vol] 23 mg/dL High 7 - 17 mg/dL [facility] CBC W Auto Differential pane l (Bld)Ordered By: Nicole Lakhani on 08-07-2024 Basophils (Bld) [#/Vol] 0.0 10*3/uL 0.0 - 0.2 10*3/uL [facility] Basophils/100 WBC (Bld) 0.1 % 0.0 - 2.0 % [facility] Eosinophils (Bld) [#/Vol] 0.5 10*3/uL 0.0 - 0.5 10*3/uL [facility] Eosinophils/100 WBC (Bld) 5.9 % 0.0 - 6.0 % [facility] Erythrocyte distribution width (RBC) [Ratio] 17.4 % High 11.5 - 15.0 % [facility] Hematocrit (Bld) [Volume fraction] 26.7 % Low 35.0 - 47.0 % [facility] Hemoglobin (Bld) [Mass/Vol] 8.1 g/dL Low 11.7 - 16.0 g/dL [facility] Immature granulocytes (Bld) [#/Vol] 0.1 10*3/uL High NINF - 0.1 10*3/uL [facility] Immature granulocytes/100 WBC (Bld) 1.0 % 0.0 - 2.0 % [facility] Interpretation and review of laboratory results Abnormal [facility] IPF 2 [facility] Lymphocytes (Bld) [#/Vol] 1.4 10*3/uL 1.0 - 4.3 10*3/uL [facility] Lymphocytes/100 WBC (Bld) 17.9 % 15.0 - 45.0 % [facility] MCH (RBC) [Entitic mass] 28.6 pg 26.0 - 34.0 pg [facility] MCHC (RBC) [Mass/Vol] 30.3 % Low 30.5 - 36.0 % [facility] MCV (RBC) [Entitic vol] 94.3 fL 77.0 - 99.0 fL [facility] Monocytes (Bld) [#/Vol] 0.6 10*3/uL 0.0 - 0.9 10*3/uL [facility] Monocytes/100 WBC (Bld) 7.2 % 5.0 - 13.0 % [facility] Neutrophils (Bld) [#/Vol] 5.5 10*3/uL 1.8 - 7.5 10*3/uL [facility] Neutrophils/100 WBC (Bld) 67.9 % 38.0 - 82.0 % [facility] Nucleated RBC/100 WBC (Bld) [Ratio] 0.0 % [facility] Platelet mean volume (Bld) [Entitic vol] 9.8 fL 9.0 - 12.7 fL [facility] Platelets (Bld) [#/Vol] 128 10*3/uL Low 140 - 440 10*3/uL [facility] RBC (Bld) [#/Vol] 2.83 10*6/uL Low 3.80 - 5.2 0 10*6/uL [facility] WBC (Bld) [#/Vol] 8.0 10*3/uL 3.6 - 10.7 10*3/uL [facility] CBC WITH AUTO DIFFERENTIALon 08-07-2024 Basophils (Bld) [#/Vol] 0.0 10*3/uL Normal 0.0-0.2 [facility] Comment on above: Performed By: #### L [id number] ####Textile Engineer: MARY SOTELO ([phone])[facility])[address] [place] [address] Basophils/100 WBC (Bld) 0.1 % Normal 0.0-2.0 [facility] Comment on above: Performed By: #### L [id number] ####Textile Engineer: MARY SOTELO ([id number])[facility])[address] [place] [address] Eosinophils (Bld) [#/Vol] 0.5 10*3/uL Normal 0.0-0.5 [facility] Comment on above: Performed By: #### L [id number] ####Textile Engineer: MARY SOTELO ([id number])[address] Eosinophils/100 WBC (Bld) 5.9 % Normal 0.0-6.0 [facility] Comment on above: Performed By: #### L [id number] ####Textile Engineer: MARY SOTELO ([phone])[facility])[address] [place] [address] Erythrocyte distribution width (RBC) [Ratio] 17.4 % High 11.5-15.0 [facility] Comment on above: Performed By: #### L [id number] ####Textile Engineer: MARY SOTELO ([id number])[address] Hematocrit (Bld) [Volume fraction] 26.7 % Low 35.0-47.0 [facility] Comment on above: Performed By: #### L [id number] ####Textile Engineer: MARY SOTELO ([id number])[address] Hemoglobin (Bld) [Mass/Vol] 8.1 g/dL Low 11.7-16.0 [facility] Comment on above: Performed By: #### L [id number] ####Textile Engineer: MARY SOTELO ([phone])[facility])[address] [place] [address] IMMATURE GRANS % 1.0 % Normal [facility]2.0 [facility] Comment on above: Performed By: #### L [id number] ####Textile Engineer: MARY SOTELO ([phone])[facility])[address] [place] [address] IMMATURE GRANS ABSOLUTE 0.1 10*3/uL High <0.1 [facility] Comment on above: Performed By: #### L [id number] ####Textile Engineer: MARY SOTELO ([phone])[facility])[address] [place] [address] IPF 2 Normal [facility] Comment on above: Performed By: #### L [id number] ####Textile Engineer: MARY SOTELO ([id number])[facility])[address] [place] [address] Lymphocytes (Bld) [#/Vol] 1.4 10*3/uL Normal 1.0-4.3 [facility] Comment on above: Performed By: #### L [id number] ####Textile Engineer: MARY SOTELO ([id number])[facility])[address] [place] [address] Lymphocytes/100 WBC (Bld) 17.9 % Normal 15.0-45.0 [facility] Comment on above: Performed By: #### L [id number] ####Textile Engineer: MARY SOTELO ([phone])[facility])[address] [place] [address] MCH (RBC) [Entitic mass] 28.6 pg Normal 26.0-34.0 [facility] Comment on above: Performed By: #### L [id number] ####Textile Engineer: MARY SOTELO ([phone])[facility])[address] [place] [address] MCHC 30.3 % Low 30.5-36.0 [facility] Comment on above: Performed By: #### L [id number] ####Textile Engineer: MARY SOTELO ([phone])[facility] ([facility])[address] [place] [address] MCV (RBC) [Entitic vol] 94.3 fL Normal 77.0-99.0 [facility] Comment on above: Performed By: #### L [id number] ####Textile Engineer: MARY SOTELO ([phone])[facility])[address] [place] [address] Monocytes (Bld) [#/Vol] 0.6 10*3/uL Normal 0.0-0.9 [facility] Comment on above: Performed By: #### L [id number] ####Textile Engineer: MARY SOTELO ([phone])[facility])[address] [place] [address] Monocytes/100 WBC (Bld) 7.2 % Normal 5.0-13.0 [facility] Comment on above: Performed By: #### L [id number] ####Textile Engineer: MARY SOTELO ([id number])[facility] ([facility])[address] [place] [address] NEUTROPHILS ABSOLUTE 5.5 10*3/uL Normal 1.8-7.5 [facility] Comment on above: Performed By: #### L [id number] ####Textile Engineer: MARY SOTELO ([phone])[facility])[address] [place] [address] Neutrophils/100 WBC (Bld) 67.9 % Normal 38.0-82.0 [facility] Comment on above: Performed By: #### L [id number] ####Textile Engineer: MARY SOTELO ([phone])[facility] ([facility])[address] [place] [address] NRBC 0.0 /100 WBCs Normal 0.0-2.0 [facility] Comment on above: Performed By: #### L [id number] ####Textile Engineer: MARY SOTELO ([phone])[facility] ([facility])[address] [place] [address] Platelet mean volume (Bld) [Entitic vol] 9.8 fL Normal 9.0-12.7 [facility] Comment on above: Performed By: #### L [id number] ####Textile Engineer: MARY SOTELO ([id number])[facility] ([facility])[address] [place] [address] Platelets (Bld) [#/Vol] 128 10*3/uL Low 140-440 [facility] Comment on above: Performed By: #### L [id number] ####Textile Engineer: MARY SOTELO ([id number])[facility] ([facility])[address] [place] [address] RBC (Bld) [#/Vol] 2.83 10*6/uL Low 3.80-5.20 [facility] Comment on above: Performed By: #### L [id number] ####Textile Engineer: MARY SOTELO ([id number])[facility] ([facility])[address] [place] [address] WBC (Bld) [#/Vol] 8.0 10*3/uL Normal 3.6-10.7 [facility] Comment on above: Performed By: #### L [id number] ####Textile Engineer: MARY SOTELO ([id number])[facility] ([facility])[address] [place] [address] IDNon 08-07-2024 IDN Normal [facility] IDN Normal [facility] Laboratory - Chemistry and C hemistry - challengeon 08-07-2024 Glucose [Mass/Vol] 176 mg/dL High 70 - 100 mg/dL [facility] Glucose [Mass/Vol] 283 mg/dL High 70 - 100 mg/dL [facility] Glucose [Mass/Vol] 249 mg/dL High 70 - 100 mg/dL [facility] Glucose [Mass/Vol] 179 mg/dL High 70 - 100 mg/dL [facility] Magnesium [Mass/Vol] 1.9 mg/dL 1.6 - 2 .3 mg/dL [facility] MAGNESIUMon 08-07-2024 Magnesium [Mass/Vol] 1.9 mg/dL Normal 1.6-2.3 [facility] Comment on above: Performed By: #### L AB103, [id number], LAB15 ####Textile Engineer: MARY SOTELO ([id number])[facility] ([facility])[address] [place] [address] No Panel Informationon 08-07 Interpretation and review of laboratory results Abnormal [facility] Interpretation and review of laboratory results Abnormal [facility] Interpretation and review of laboratory results Abnormal [facility] Interpretation and review of laboratory results Abnormal [facility] Interpretation and review of laboratory results Normal [facility] Nursing Noteon 08-07-2024 Nursing Note Normal [facility] PHOSPHORUSon 08-07-2024 Phosphate [Mass/Vol] 3.7 mg/dL Normal 2.5-4.5 [facility] Comment on above: Performed By: #### L AB103, [id number], LAB15 ####Textile Engineer: MARY SOTELO ([id number])[facility] [place] [address] Phosphate [Moles/Vol]on Phosphate [Mass/Vol] 3.7 mg/dL 2.5 - 4 .5 mg/dL [facility] Progress Noteon 08-07-2024 Progress Note Normal [facility] Progress Note Normal [facility] RESPIRATORY PATHOGENS PANEL BY PCRon 08-07-2024 RESPIRATORY PATHOGENS PANEL BY PCR Normal [facility] Comment on above: Performed By: #### L [id number] ####Textile Engineer: MARY SOTELO ([phone])[facility] [place] [address] Respiratory pathogens DNA an d RNA panel MARISA+non-probe (Nph)on 08-07-2024 Adenovirus Not detected Not Detected [facility] B. pertussis DNA MARISA+probe Ql (Unsp spec) Not detected Not Detected [facility] Bordetella parapertussis Not detected Not Detected [facility] Chlamydia pneumoniae Not detected Not Detected [facility] Coronavirus 229E Not detected Not Detected [facility] Coronavirus HKU1 Not detected Not Detected [facility] Coronavirus NL63 Not detected Not Detected [facility] Coronavirus OC43 Not detected Not Detected [facility] FLUAV RNA MARISA+non-probe Ql (Nph) Not detected Not Detected [facility] FLUBV RNA MARISA+non-probe Ql (Nph) Not detected Not Detected [facility] Human Metapneumovirus Not detected Not Detected [facility] Human Rhinovirus/Enterovirus Not detected Not Detected [facility] Interpretation and review of laboratory results Normal [facility] Mycoplasma pneumoniae Not detected Not Detected [facility] Parainfluenza 1 Not detected Not Detected [facility] Parainfluenza 2 Not detected Not Detected [facility] Parainfluenza 3 Not detected Not Detected [facility] Parainfluenza 4 Not detected Not Detected [facility] Respiratory Syncytial Virus Not detected Not Detected [facility] SARS-CoV-2 (COVID-19) RNA MARISA+non-probe Ql (Nph) Not detected Not Detected [facility] BASIC METABOLIC PANELon 10-0 Anion gap [Moles/Vol] 2 mmol/L Low 3-[address] [facility] Comment on above: Performed By: #### L AB103, LAB15, [id number] ####Textile Engineer: MARY SOTELO ([id number])[facility] [place] [address] Calcium [Mass/Vol] 7.4 mg/dL Low 8.4-10.4 [facility] Comment on above: Performed By: #### L AB103, LAB15, [id number] ####Textile Engineer: MARY SOTELO ([id number])[facility] ([facility])[address] [place] [address] [place] Chloride [Moles/Vol] 99 mmol/L Normal 98-107 [facility] Comment on above: Performed By: #### L AB103, LAB15, [id number] ####Textile Engineer: MARY SOTELO ([phone])[facility] [place] [address] [place] CO2 [Moles/Vol] 32 mmol/L High 22-30 [facility] Comment on above: Performed By: #### L AB103, LAB15, [id number] ####Textile Engineer: MARY SOTELO ([id number])[facility] ([facility])[address] [place] [address] Creatinine [Mass/Vol] 1.40 mg/dL High 0.52-1.[address] [facility] Comment on above: Performed By: #### L AB103, LAB15, [id number] ####Textile Engineer: MARY SOTELO ([id number])[facility] ([facility])[address] [place] [address] [place] GLOMERULAR FILTRATION RATE ML/MIN/1.73 SQ M.PREDICTED 42.1 mL/min/1.73m*2 Low >60.0 [facility] Comment on above: Result Comment: Calc ulation based on the Chronic Kidney Disease Epidemiology Collaboration (CKD-EPI) equation refit without adjustment for race Performed By: #### L AB103, LAB15, [id number] ####Textile Engineer: MARY SOTELO ([id number])[facility] ([facility])[address] [place] [address] [place] Glucose [Mass/Vol] 184 mg/dL High 70-100 [facility] Comment on above: Performed By: #### L AB103, LAB15, [id number] ####Textile Engineer: MARY SOTELO ([phone])[facility] ([facility])[address] [place] [address] Potassium [Moles/Vol] 3.1 mmol/L Low 3.5-5.[address] [facility] Comment on above: Performed By: #### L AB103, LAB15, [id number] ####Textile Engineer: MARY SOTELO ([phone])[facility] ([facility])[address] [place] [address] [place] Sodium [Moles/Vol] 133 mmol/L Low 135-145 [facility] Comment on above: Performed By: #### L AB103, LAB15, [id number] ####Textile Engineer: MARY SOTELO ([phone])[facility])[address] [place] [address] [place] Urea nitrogen [Mass/Vol] 16 mg/dL Normal 7-17 [facility] Comment on above: Performed By: #### L AB103, LAB15, [id number] ####Textile Engineer: MARY SOTELO ([id number])[facility] ([facility])[address] [place] [address] BLOOD TYPE AND SCREEN GELon 08-06-2024 ABO GROUPING O Normal [facility] Comment on above: Performed By: #### L [id number] ####Textile Engineer: MARY SOTELO ([id number])[facility] ([facility])[address] [place] [address] RH TYPE IN BLOOD Positive Normal [facility] Comment on above: Performed By: #### L [id number] ####Textile Engineer: MARY SOTELO ([id number])[facility] ([facility])[address] [place] [address] Basic metabolic 1998 panelon 08-06-2024 Anion gap [Moles/Vol] 2 mmol/L Low 3 - 13 mmol/L [facility] Calcium [Mass/Vol] 7.4 mg/dL Low 8.4 - 10. 4 mg/dL [facility] Chloride [Moles/Vol] 99 mmol/L 98 - 10 7 mmol/L [facility] CO2 [Moles/Vol] 32 mmol/L High 22 - 30 mmol/L [facility] Creatinine [Mass/Vol] 1.40 mg/dL High 0.52 - 1.04 mg/dL [facility] GFR/1.73 sq M.predicted (S/P/Bld) [Vol rate/Area] 42.1 mL/min Low - PINF [facility] Glucose [Mass/Vol] 184 mg/dL High 70 - 100 mg/dL [facility] Interpretation and review of laboratory results Abnormal [facility] Potassium [Moles/Vol] 3.1 mmol/L Low 3.5 - 5.1 mmol/L [facility] Sodium [Moles/Vol] 133 mmol/L Low 135 - 145 mmol/L [facility] Urea nitrogen [Mass/Vol] 16 mg/dL 7 - 17 mg/dL [facility] Blood type and Crossmatch pa eunice (Bld)on 08-06-2024 ABO group Nom (Bld) O [facility] Blood group antibody screen GEL Ql Negative [facility] D Ag Ql (RBC) Positive [facility] CARECOORDon 08-06-2024 CARECOORD Per nephro - UMA. Ho pe to recover . Line is tunneled . Nephrology updated on plans to work on out pt and placement . Normal [facility] Normal [facility] Normal [facility] Normal [facility] CBC W Auto Differential pane l (Bld)on 08-06-2024 Basophils (Bld) [#/Vol] 0.0 10*3/uL 0.0 - 0.2 10*3/uL [facility] Basophils/100 WBC (Bld) 0.2 % 0.0 - 2.0 % [facility] Eosinophils (Bld) [#/Vol] 0.4 10*3/uL 0.0 - 0.5 10*3/uL [facility] Eosinophils/100 WBC (Bld) 6.6 % High 0.0 - 6.0 % [facility] Erythrocyte distribution width (RBC) [Ratio] 17.8 % High 11.5 - 15.0 % [facility] Hematocrit (Bld) [Volume fraction] 21.6 % Low 35.0 - 47.0 % [facility] Hemoglobin (Bld) [Mass/Vol] 6.6 g/dL Critically low 11.7 - 16.0 g/dL [facility] Immature granulocytes (Bld) [#/Vol] 0.1 10*3/uL High NINF - 0.1 10*3/uL [facility] Immature granulocytes/100 WBC (Bld) 0.8 % 0.0 - 2.0 % [facility] Interpretation and review of laboratory results Abnormal [facility] IPF 3 [facility] Lymphocytes (Bld) [#/Vol] 1.2 10*3/uL 1.0 - 4.3 10*3/uL [facility] Lymphocytes/100 WBC (Bld) 17.9 % 15.0 - 45.0 % [facility] MCH (RBC) [Entitic mass] 28.4 pg 26.0 - 34.0 pg [facility] MCHC (RBC) [Mass/Vol] 30.6 % 30.5 - 36.0 % [facility] MCV (RBC) [Entitic vol] 93.1 fL 77.0 - 99.0 fL [facility] Monocytes (Bld) [#/Vol] 0.5 10*3/uL 0.0 - 0.9 10*3/uL [facility] Monocytes/100 WBC (Bld) 7.2 % 5.0 - 13.0 % [facility] Neutrophils (Bld) [#/Vol] 4.4 10*3/uL 1.8 - 7.5 10*3/uL [facility] Neutrophils/100 WBC (Bld) 67.3 % 38.0 - 82.0 % [facility] Nucleated RBC/100 WBC (Bld) [Ratio] 0.0 % [facility] Platelet mean volume (Bld) [Entitic vol] 10.6 fL 9.0 - 12.7 fL [facility] Platelets (Bld) [#/Vol] 120 10*3/uL Low 140 - 440 10*3/uL [facility] RBC (Bld) [#/Vol] 2.32 10*6/uL Low 3.80 - 5.2 0 10*6/uL [facility] WBC (Bld) [#/Vol] 6.5 10*3/uL 3.6 - 10.7 10*3/uL [facility] CBC WITH AUTO DIFFERENTIALon 08-06-2024 Basophils (Bld) [#/Vol] 0.0 10*3/uL Normal 0.0-0.2 [facility] Comment on above: Performed By: #### Dora [id number] ####Textile Engineer: MARY SOTELO ([id number])[address] Basophils/100 WBC (Bld) 0.2 % Normal 0.0-2.0 [facility] Comment on above: Performed By: #### L [id number] ####Textile Engineer: MARY SOTELO ([id number])[address] Eosinophils (Bld) [#/Vol] 0.4 10*3/uL Normal 0.0-0.5 [facility] Comment on above: Performed By: #### L [id number] ####Textile Engineer: MARY SOTELO ([phone])[facility])[address] [place] [address] Eosinophils/100 WBC (Bld) 6.6 % High 0.0-6.0 [facility] Comment on above: Performed By: #### L [id number] ####Textile Engineer: MARY SOTELO ([id number])[facility])[address] [place] [address] Erythrocyte distribution width (RBC) [Ratio] 17.8 % High 11.5-15.0 [facility] Comment on above: Performed By: #### L [id number] ####Textile Engineer: MARY SOTELO ([id number])[address] Hematocrit (Bld) [Volume fraction] 21.6 % Low 35.0-47.0 [facility] Comment on above: Performed By: #### L [id number] ####Textile Engineer: MARY SOTELO ([id number])[address] Hemoglobin (Bld) [Mass/Vol] 6.6 g/dL Critically low 11.7-16.0 [facility] Comment on above: Performed By: #### L [id number] ####Textile Engineer: MARY SOTELO ([id number])[address] IMMATURE GRANS % 0.8 % Normal 0.0-2.0 [facility] Comment on above: Performed By: #### L [id number] ####Textile Engineer: MARY SOTELO ([id number])[address] IMMATURE GRANS ABSOLUTE 0.1 10*3/uL High <0.1 [facility] Comment on above: Performed By: #### L [id number] ####Textile Engineer: MARY SOTELO ([id number])[facility])[address] [place] [address] [place] IPF 3 Normal [facility] Comment on above: Performed By: #### L [id number] ####Textile Engineer: MARY SOTELO ([id number])[facility])[address] [place] [address] Lymphocytes (Bld) [#/Vol] 1.2 10*3/uL Normal 1.0-4.3 [facility] Comment on above: Performed By: #### L [id number] ####Textile Engineer: MARY SOTELO ([id number])[facility])[address] [place] [address] Lymphocytes/100 WBC (Bld) 17.9 % Normal 15.0-45.0 [facility] Comment on above: Performed By: #### L [id number] ####Textile Engineer: MARY SOTELO ([id number])[facility])[address] [place] [address] MCH (RBC) [Entitic mass] 28.4 pg Normal 26.0-34.0 [facility] Comment on above: Performed By: #### L [id number] ####Textile Engineer: MARY SOTELO ([id number])[facility])[address] [place] [address] MCHC 30.6 % Normal 30.5-36.0 [facility] Comment on above: Performed By: #### L [id number] ####Textile Engineer: MARY SOTELO ([phone])[facility])[address] [place] [address] MCV (RBC) [Entitic vol] 93.1 fL Normal 77.0-99.0 [facility] Comment on above: Performed By: #### L [id number] ####Textile Engineer: MARY SOTELO ([id number])[facility])[address] [place] [address] Monocytes (Bld) [#/Vol] 0.5 10*3/uL Normal 0.0-0.9 [facility] Comment on above: Performed By: #### L [id number] ####Textile Engineer: MARY SOTELO ([id number])[facility])[address] [place] [address] Monocytes/100 WBC (Bld) 7.2 % Normal 5.0-13.0 [facility] Comment on above: Performed By: #### L [id number] ####Textile Engineer: MARY SOTELO ([id number])[facility] ([facility])[address] [place] [address] NEUTROPHILS ABSOLUTE 4.4 10*3/uL Normal 1.8-7.5 [facility] Comment on above: Performed By: #### L [id number] ####Textile Engineer: MARY SOTELO ([id number])[facility] ([facility])[address] [place] [address] Neutrophils/100 WBC (Bld) 67.3 % Normal 38.0-82.0 [facility] Comment on above: Performed By: #### L [id number] ####Textile Engineer: MARY SOTELO ([id number])[facility] ([facility])[address] [place] [address] NRBC 0.0 /100 WBCs Normal 0.0-2.0 [facility] Comment on above: Performed By: #### L [id number] ####Textile Engineer: MARY SOTELO ([id number])[facility] ([facility])[address] [place] [address] Platelet mean volume (Bld) [Entitic vol] 10.6 fL Normal 9.0-12.7 [facility] Comment on above: Performed By: #### L [id number] ####Textile Engineer: MARY SOTELO ([id number])[facility])[address] [place] [address] Platelets (Bld) [#/Vol] 120 10*3/uL Low 140-440 [facility] Comment on above: Performed By: #### L [id number] ####Textile Engineer: MARY SOTELO ([id number])[facility] [place] [address] RBC (Bld) [#/Vol] 2.32 10*6/uL Low 3.80-5.20 [facility] Comment on above: Performed By: #### L [id number] ####Textile Engineer: MARY SOTELO ([id number])[facility] ([facility])[address] [place] [address] WBC (Bld) [#/Vol] 6.5 10*3/uL Normal 3.6-10.7 [facility] Comment on above: Performed By: #### L [id number] ####Textile Engineer: MARY SOTELO ([id number])[facility] ([facility])[address] [place] [address] HEMOGLOBIN AND HEMATOCRIT, B LOODon 08-06-2024 Hematocrit (Bld) [Volume fraction] 25.2 % Low 35.0-47.0 [facility] Comment on above: Order Comment: Recom mend 1 hour post transfusion Performed By: #### L [id number] ####Textile Engineer: MARY SOTELO ([id number])[facility] ([facility])[address] [place] [address] Hemoglobin (Bld) [Mass/Vol] 7.9 g/dL Low 11.7-16.0 [facility] Comment on above: Order Comment: Recom mend 1 hour post transfusion Performed By: #### L [id number] ####Textile Engineer: MARY SOTELO ([id number])[facility] ([facility])[address] [place] [address] Hemoglobin (Bld) [Mass/Vol]o n 08-06-2024 Hematocrit (Bld) [Volume fraction] 25.2 % Low 35.0 - 47.0 % [facility] Interpretation and review of laboratory results Abnormal [facility] IDNon 08-06-2024 IDN The patient is Moderately Stable - Low risk of patient condition declining or worsening The patient's goals for the shift include The clinical goals for the shift include Normal [facility] IDN Normal [facility] IDN Normal [facility] Laboratory - Chemistry and C hemistry - challengeon 08-06-2024 Glucose [Mass/Vol] 271 mg/dL High 70 - 100 mg/dL [facility] Glucose [Mass/Vol] 305 mg/dL High 70 - 100 mg/dL [facility] Glucose [Mass/Vol] 333 mg/dL High 70 - 100 mg/dL [facility] Glucose [Mass/Vol] 199 mg/dL High 70 - 100 mg/dL [facility] Magnesium [Mass/Vol] 1.9 mg/dL 1.6 - 2 .3 mg/dL [facility] Laboratory - Hematology and Cell countson 08-06-2024 Hemoglobin (Bld) [Mass/Vol] 7.9 g/dL Low 11.7 - 16.0 g/dL [facility] MAGNESIUMon 08-06-2024 Magnesium [Mass/Vol] 1.9 mg/dL Normal 1.6-2.3 [facility] Comment on above: Performed By: #### L AB103, LAB15, [id number] ####Textile Engineer: MARY SOTELO ([id number])[facility] ([address] Magnesium [Mass/Vol]on 08-06 Interpretation and review of laboratory results Normal [facility] No Panel Informationon 08-06 Interpretation and review of laboratory results Abnormal [facility] Interpretation and review of laboratory results Abnormal [facility] Interpretation and review of laboratory results Abnormal [facility] Interpretation and review of laboratory results Abnormal [facility] Blood Expiration Date S [facility] Crossmatch interpretation COMP [facility] Dispense Status Transfused [facility] Product Blood Type 5100 [facility] PRODUCT CODE [id number] [facility] ABO O [id number] Positive [facility] Unit Volume 300 mL [facility] Nursing Noteon 08-06-2024 Nursing Note Patient bladder scanned for 113 ml. Patient states she does not need to void. Message sent to Dr Jarrett Normal [facility] Nursing Note Central line dressin g changed, patient tolerated well Normal [facility] Nursing Note Johnson removed per orders, patient tolerated well Normal [facility] PHOSPHORUSon 08-06-2024 Phosphate [Mass/Vol] 2.2 mg/dL Low 2.5-4.5 [facility] Comment on above: Performed By: #### L AB103, LAB15, [id number] ####Textile Engineer: MARY SOTELO ([id number])[facility])[address] [place] [address] Phosphate [Moles/Vol]on Interpretation and review of laboratory results Abnormal [facility] Phosphate [Mass/Vol] 2.2 mg/dL Low 2.5 - 4 .5 mg/dL [facility] Progress Noteon 08-06-[address] [facility] Progress [facility] Progress Note Normal [facility] Progress Note OCCUPATIONAL THERAPY [facility] Name/MRN: Sandy Deng ([id number]) Date: 08/06/2024 Hold OT this a.m.; HgB 6.6 with order to transfuse. Will follow and treat as appropriate. GUILLERMO Taylor Normal [facility] Progress Note Normal [facility] BASIC METABOLIC PANELon Anion gap [Moles/Vol] 0 mmol/L Low 3-[address] [facility] Comment on above: Performed By: #### L AB103, [id number], LAB15 ####Textile Engineer: MARY SOTELO ([id number])[facility] ([facility])[address] [place] [address] [place] Calcium [Mass/Vol] 6.7 mg/dL Low 8.4-10.4 [facility] Comment on above: Performed By: #### L AB103, [id number], LAB15 ####Textile Engineer: MARY SOTELO ([id number])[facility] ([facility])[address] [place] [address] [place] Chloride [Moles/Vol] 105 mmol/L Normal 98-107 [facility] Comment on above: Performed By: #### L AB103, [id number], LAB15 ####Textile Engineer: MARY SOTELO ([id number])[facility] [place] [address] CO2 [Moles/Vol] 26 mmol/L Normal 22-30 [facility] Comment on above: Performed By: #### L AB103, [id number], LAB15 ####Textile Engineer: MARY SOTELO ([id number])[facility] ([facility])[address] [place] [address] Creatinine [Mass/Vol] 2.56 mg/dL High 0.52-1.04 [facility] Comment on above: Performed By: #### L AB103, [id number], LAB15 ####Textile Engineer: MARY SOTELO ([id number])[facility])[address] [place] [address] GLOMERULAR FILTRATION RATE ML/MIN/1.73 SQ M.PREDICTED 20.4 mL/min/1.73m*2 Low >60.0 [facility] Comment on above: Result Comment: Calc ulation based on the Chronic Kidney Disease Epidemiology Collaboration (CKD-EPI) equation refit without adjustment for race Performed By: #### L AB103, AFQ989, LAB15 ####Textile Engineer: MARY SOTELO ([id number])[facility] ([facility])[address] [place] [address] Glucose [Mass/Vol] 151 mg/dL High 70-100 [facility] Comment on above: Performed By: #### L AB103, [id number], LAB15 ####Textile Engineer: MARY SOTELO ([id number])[facility] ([facility])[address] [place] [address] [place] Potassium [Moles/Vol] 4.0 mmol/L Normal 3.5-5.1 [facility] Comment on above: Performed By: #### L AB103, SER992, LAB15 ####Textile Engineer: MARY SOTELO ([id number])[facility] ([facility])[address] [place] [address] [place] Sodium [Moles/Vol] 132 mmol/L Low 135-145 [facility] Comment on above: Performed By: #### L AB103, [id number], LAB15 ####Textile Engineer: MARY SOTELO ([id number])[facility])[address] [place] [address] Urea nitrogen [Mass/Vol] 35 mg/dL High 7-17 [facility] Comment on above: Performed By: #### L AB103, [id number], LAB15 ####Textile Engineer: MARY SOTELO ([id number])[facility] ([facility])[address] [place] [address] Basic metabolic 1998 panelon 08-05-2024 Anion gap [Moles/Vol] 0 mmol/L Low 3 - 13 mmol/L [facility] Calcium [Mass/Vol] 6.7 mg/dL Low 8.4 - 10. 4 mg/dL [facility] Chloride [Moles/Vol] 105 mmol/L 98 - 10 7 mmol/L [facility] CO2 [Moles/Vol] 26 mmol/L 22 - 30 mmol/L [facility] Creatinine [Mass/Vol] 2.56 mg/dL High 0.52 - 1.04 mg/dL [facility] GFR/1.73 sq M.predicted (S/P/Bld) [Vol rate/Area] 20.4 mL/min Low - PINF [facility] Glucose [Mass/Vol] 151 mg/dL High 70 - 100 mg/dL [facility] Interpretation and review of laboratory results Abnormal [facility] Potassium [Moles/Vol] 4.0 mmol/L 3.5 - 5.1 mmol/L [facility] Sodium [Moles/Vol] 132 mmol/L Low 135 - 145 mmol/L [facility] Urea nitrogen [Mass/Vol] 35 mg/dL High 7 - 17 mg/dL [facility] CARECOORDon 08-05-2024 [facility] requested PT/OT t o see today via see today tool to start auth. Normal [facility] CBC W Auto Differential pane l (Bld)on 08-05-2024 Basophils (Bld) [#/Vol] 0.0 10*3/uL 0.0 - 0.2 10*3/uL [facility] Basophils/100 WBC (Bld) 0.0 % 0.0 - 2.0 % [facility] Eosinophils (Bld) [#/Vol] 0.0 10*3/uL 0.0 - 0.5 10*3/uL [facility] Eosinophils/100 WBC (Bld) 0.5 % 0.0 - 6.0 % [facility] Erythrocyte distribution width (RBC) [Ratio] 17.7 % High 11.5 - 15.0 % [facility] Hematocrit (Bld) [Volume fraction] 23.6 % Low 35.0 - 47.0 % [facility] Hemoglobin (Bld) [Mass/Vol] 7.4 g/dL Low 11.7 - 16.0 g/dL [facility] Immature granulocytes (Bld) [#/Vol] 0.1 10*3/uL High NINF - 0.1 10*3/uL [facility] Immature granulocytes/100 WBC (Bld) 0.7 % 0.0 - 2.0 % [facility] Interpretation and review of laboratory results Abnormal [facility] Lymphocytes (Bld) [#/Vol] 0.7 10*3/uL Low 1.0 - 4.3 10*3/uL [facility] Lymphocytes/100 WBC (Bld) 9.8 % Low 15.0 - 45.0 % [facility] MCH (RBC) [Entitic mass] 28.4 pg 26.0 - 34.0 pg [facility] MCHC (RBC) [Mass/Vol] 31.4 % 30.5 - 36.0 % [facility] MCV (RBC) [Entitic vol] 90.4 fL 77.0 - 99.0 fL [facility] Monocytes (Bld) [#/Vol] 0.3 10*3/uL 0.0 - 0.9 10*3/uL [facility] Monocytes/100 WBC (Bld) 4.2 % Low 5.0 - 13.0 % [facility] Neutrophils (Bld) [#/Vol] 6.3 10*3/uL 1.8 - 7.5 10*3/uL [facility] Neutrophils/100 WBC (Bld) 84.8 % High 38.0 - 82.0 % [facility] Nucleated RBC/100 WBC (Bld) [Ratio] 0.0 % [facility] Platelet mean volume (Bld) [Entitic vol] 10.0 fL 9.0 - 12.7 fL [facility] Platelets (Bld) [#/Vol] 168 10*3/uL 140 - 440 10*3/uL [facility] RBC (Bld) [#/Vol] 2.61 10*6/uL Low 3.80 - 5.2 0 10*6/uL [facility] WBC (Bld) [#/Vol] 7.4 10*3/uL 3.6 - 10.7 10*3/uL [facility] CBC WITH AUTO DIFFERENTIALon 08-05-2024 Basophils (Bld) [#/Vol] 0.0 10*3/uL Normal 0.0-0.2 [facility] Comment on above: Performed By: #### L [id number] ####Textile Engineer: MARY SOTELO ([phone])[facility])[address] [place] [address] Basophils/100 WBC (Bld) 0.0 % Normal 0.0-2.0 [facility] Comment on above: Performed By: #### L [id number] ####Textile Engineer: MARY SOTELO ([id number])[facility])[address] [place] [address] Eosinophils (Bld) [#/Vol] 0.0 10*3/uL Normal 0.0-0.5 [facility] Comment on above: Performed By: #### L [id number] ####Textile Engineer: MARY SOTELO ([phone])[facility])[address] [place] [address] Eosinophils/100 WBC (Bld) 0.5 % Normal 0.0-6.0 [facility] Comment on above: Performed By: #### L [id number] ####Textile Engineer: MARY SOTELO ([id number])[facility])[address] [place] [address] Erythrocyte distribution width (RBC) [Ratio] 17.7 % High 11.5-15.0 [facility] Comment on above: Performed By: #### L [id number] ####Textile Engineer: MARY SOTELO ([phone])[facility])[address] [place] [address] Hematocrit (Bld) [Volume fraction] 23.6 % Low 35.0-47.0 [facility] Comment on above: Performed By: #### L [id number] ####Textile Engineer: MARY SOTELO ([id number])[facility])[address] [place] [address] Hemoglobin (Bld) [Mass/Vol] 7.4 g/dL Low 11.7-16.0 [facility] Comment on above: Performed By: #### L [id number] ####Textile Engineer: MARY SOTELO ([phone])[facility])[address] [place] [address] IMMATURE GRANS % 0.7 % Normal 0.0-2.0 [facility] Comment on above: Performed By: #### L [id number] ####Textile Engineer: MARY SOTELO ([id number])[facility])[address] [place] [address] IMMATURE GRANS ABSOLUTE 0.1 10*3/uL High <0.1 [facility] Comment on above: Performed By: #### L [id number] ####Textile Engineer: MARY SOTELO ([id number])[facility])[address] [place] [address] Lymphocytes (Bld) [#/Vol] 0.7 10*3/uL Low 1.0-4.3 [facility] Comment on above: Performed By: #### L [id number] ####Textile Engineer: MARY SOTELO ([phone])[facility])[address] [place] [address] Lymphocytes/100 WBC (Bld) 9.8 % Low 15.0-45.0 [facility] [facility] Comment on above: Performed By: #### L [id number] ####Textile Engineer: MARY SOTELO ([phone])[facility])[address] [place] [address] MCH (RBC) [Entitic mass] 28.4 pg Normal 26.0-34.0 [facility] Comment on above: Performed By: #### L [id number] ####Textile Engineer: MARY SOTELO ([phone])[facility])[address] [place] [address] MCHC 31.4 % Normal 30.5-36.0 [facility] Comment on above: Performed By: #### L [id number] ####Textile Engineer: MARY SOTELO ([phone])[facility])[address] [place] [address] MCV (RBC) [Entitic vol] 90.4 fL Normal 77.0-99.0 [facility] Comment on above: Performed By: #### L [id number] ####Textile Engineer: MARY SOTELO ([phone])[facility])[address] [place] [address] Monocytes (Bld) [#/Vol] 0.3 10*3/uL Normal 0.0-0.9 [facility] Comment on above: Performed By: #### L [id number] ####Textile Engineer: MARY SOTELO ([phone])[facility])[address] [place] [address] Monocytes/100 WBC (Bld) 4.2 % Low 5.0-13.0 [facility] Comment on above: Performed By: #### L [id number] ####Textile Engineer: MARY SOTELO ([phone])[facility])[address] [place] [address] NEUTROPHILS ABSOLUTE 6.3 10*3/uL Normal 1.8-7.5 [facility] Comment on above: Performed By: #### L [id number] ####Textile Engineer: MARY SOTELO ([id number])[facility])[address] [place] [address] Neutrophils/100 WBC (Bld) 84.8 % High 38.0-82.0 [facility] Comment on above: Performed By: #### L [id number] ####Textile Engineer: MARY SOTELO ([phone])[facility] ([facility])[address] [place] [address] NRBC 0.0 /100 WBCs Normal 0.0-2.0 [facility] Comment on above: Performed By: #### L [id number] ####Textile Engineer: MARY SOTELO ([phone])[facility] ([facility])[address] [place] [address] Platelet mean volume (Bld) [Entitic vol] 10.0 fL Normal 9.0-12.7 [facility] Comment on above: Performed By: #### L [id number] ####Textile Engineer: MARY SOTELO ([phone])[facility] ([facility])[address] [place] [address] Platelets (Bld) [#/Vol] 168 10*3/uL Normal 140-440 [facility] Comment on above: Performed By: #### L [id number] ####Textile Engineer: MARY SOTELO ([phone])[facility] ([facility])[address] [place] [address] RBC (Bld) [#/Vol] 2.61 10*6/uL Low 3.80-5.20 [facility] Comment on above: Performed By: #### L [id number] ####Textile Engineer: MARY SOTELO ([id number])[facility] ([facility])[address] [place] [address] WBC (Bld) [#/Vol] 7.4 10*3/uL Normal 3.6-10.7 [facility] Comment on above: Performed By: #### L [id number] ####Textile Engineer: MARY SOTELO ([phone])[facility] ([facility])[address] [place] [address] LACTIC ACID WITH REFLEXon Lactate [Moles/Vol] 0.5 mmol/L Low 0.7-2.0 [facility] Comment on above: Performed By: #### L [id number] ####Textile Engineer: MARY SOTELO ([phone])[facility])[address] [place] [address] Laboratory - Chemistry and C hemistry - challengeon 08-05-2024 Glucose [Mass/Vol] 341 mg/dL High 70 - 100 mg/dL [facility] Glucose [Mass/Vol] 303 mg/dL High 70 - 100 mg/dL [facility] Procalcitonin [Mass/Vol] 0.16 ng/mL High 0.00 - 0.09 ng/mL [facility] Glucose [Mass/Vol] 285 mg/dL High 70 - 100 mg/dL [facility] Glucose [Mass/Vol] 139 mg/dL High 70 - 100 mg/dL [facility] Magnesium [Mass/Vol] 2.2 mg/dL 1.6 - 2 .3 mg/dL [facility] Lactate [Moles/Vol] 0.5 mmol/L Low 0.7 - 2. 0 mmol/L [facility] MAGNESIUMon 08-05-2024 Magnesium [Mass/Vol] 2.2 mg/dL Normal 1.6-2.3 [facility] Comment on above: Performed By: #### L [id number], [id number], LAB15 ####Textile Engineer: MARY SOTELO ([phone])[facility])[address] [place] [address] No Panel Informationon 08-05 Interpretation and review of laboratory results Abnormal [facility] Interpretation and review of laboratory results Abnormal [facility] Interpretation and review of laboratory results Abnormal [facility] Interpretation and review of laboratory results Abnormal [facility] Interpretation and review of laboratory results Normal [facility] Interpretation and review of laboratory results Abnormal [facility] Nursing Noteon 08-05-2024 Nursing Note Normal [facility] PHOSPHORUSon 08-05-2024 Phosphate [Mass/Vol] 3.6 mg/dL Normal 2.5-4.5 [facility] Comment on above: Performed By: #### L [id number], [id number], LAB15 ####Textile Engineer: MARY SOTELO ([phone])[facility] ([facility])[address] [place] [address] [place] PROCALCITONIN TESTon 024 PROCALCITONIN 0.16 ng/mL High 0.00-0.09 [facility] Comment on above: Result Comment: ORDE R COMMENTS:PCT <0.50 = Low risk of severe sepsis and/or septic shock.PCT >2.00 = High risk of severe sepsis and/or septic shock. Performed By: #### L [id number] ####Textile Engineer: MARY SOTELO ([id number])[facility] ([facility])[address] [place] [address] [place] Phosphate [Moles/Vol]on Phosphate [Mass/Vol] 3.6 mg/dL 2.5 - 4 .5 mg/dL [facility] Procalcitonin [Mass/Vol]on Interpretation and review of laboratory results Abnormal [facility] Progress Noteon 08-05-[address] [facility] Progress Note [facility] Progress Note [facility] Progress Note Normal [facility] Progress Note [facility] Progress Note Normal [facility] XR CHEST 1 VIEWon 08-05-2024 XR CHEST [address] [facility] XR Chest Single viewon 08-05 [facility] Radiology Study observation (narrative) [facility] BASIC METABOLIC PANELon Anion gap [Moles/Vol] 4 mmol/L Normal 3-13 [facility] Comment on above: Performed By: #### L [id number], [id number], LAB15 ####Textile Engineer: MARY SOTELO ([phone])[facility] ([facility])[address] [place] [address] [place] Calcium [Mass/Vol] 7.0 mg/dL Low 8.4-10.4 [facility] Comment on above: Performed By: #### L AB113, [id number], LAB15 ####Textile Engineer: MARY SOTELO ([id number])[facility] [place] [address] [place] Chloride [Moles/Vol] 104 mmol/L Normal 98-107 [facility] Comment on above: Performed By: #### Dora AB113, [id number], LAB15 ####Textile Engineer: MARY SOTELO ([phone])[facility] [place] [address] [place] CO2 [Moles/Vol] 26 mmol/L Normal 22-30 [facility] Comment on above: Performed By: #### Dora ABGabbie, [id number], LAB15 ####Textile Engineer: MARY SOTELO ([id number])[facility] ([facility])[address] [place] [address] Creatinine [Mass/Vol] 1.88 mg/dL High 0.52-1.[address] [facility] Comment on above: Performed By: #### Dora ABGabbie, [id number], LAB15 ####Textile Engineer: MARY SOTELO ([phone])[facility])[address] [place] [address] [place] GLOMERULAR FILTRATION RATE ML/MIN/1.73 SQ M.PREDICTED 29.6 mL/min/1.73m*2 Low >60.0 [facility] Comment on above: Result Comment: Calc ulation based on the Chronic Kidney Disease Epidemiology Collaboration (CKD-EPI) equation refit without adjustment for race Performed By: #### Dora ABGabbie, [id number], LAB15 ####Textile Engineer: MARY SOTELO ([phone])[facility])[address] [place] [address] [place] Glucose [Mass/Vol] 119 mg/dL High 70-100 [facility] Comment on above: Performed By: #### Dora AB113, [id number], LAB15 ####Textile Engineer: MARY SOTELO ([id number])[facility] [place] [address] [place] Potassium [Moles/Vol] 3.6 mmol/L Normal 3.5-5.[address] [facility] Comment on above: Performed By: #### L AB113, [id number], LAB15 ####Textile Engineer: MARY SOTELO ([phone])[facility] ([facility])[address] [place] [address] Sodium [Moles/Vol] 134 mmol/L Low 135-145 [facility] Comment on above: Performed By: #### L AB113, [id number], LAB15 ####Textile Engineer: MARY SOTELO ([id number])[facility] [place] [address] Urea nitrogen [Mass/Vol] 24 mg/dL High 7-17 [facility] Comment on above: Performed By: #### Dora AB113, [id number], LAB15 ####Textile Engineer: MARY SOTELO ([phone])[facility] ([facility])[address] [place] [address] Basic metabolic 1998 panelon 08-04-2024 Anion gap [Moles/Vol] 4 mmol/L 3 - 13 mmol/L [facility] Calcium [Mass/Vol] 7.0 mg/dL Low 8.4 - 10. 4 mg/dL [facility] Chloride [Moles/Vol] 104 mmol/L 98 - 10 7 mmol/L [facility] CO2 [Moles/Vol] 26 mmol/L 22 - 30 mmol/L [facility] Creatinine [Mass/Vol] 1.88 mg/dL High 0.52 - 1.04 mg/dL [facility] GFR/1.73 sq M.predicted (S/P/Bld) [Vol rate/Area] 29.6 mL/min Low - PINF [facility] Glucose [Mass/Vol] 119 mg/dL High 70 - 100 mg/dL [facility] Interpretation and review of laboratory results Abnormal [facility] Potassium [Moles/Vol] 3.6 mmol/L 3.5 - 5.1 mmol/L [facility] Sodium [Moles/Vol] 134 mmol/L Low 135 - 145 mmol/L [facility] Urea nitrogen [Mass/Vol] 24 mg/dL High 7 - 17 mg/dL [facility] CALCIUM, IONIZEDon CALCIUM IONIZED 3.70 mg/dL Low 4.30-5.20 [facility] Comment on above: Performed By: #### L [id number] ####Textile Engineer: MARY SOTELO ([phone])[facility] ([facility])[address] [place] [address] PH, IONIZED CALCIUM 7.45 Normal 7.31-7.46 [facility] Comment on above: Performed By: #### L AB54 ####Textile Engineer: MARY SOTELO ([phone])[facility] ([facility])[address] [place] [address] CARECOORDon 08-04-2024 CARECOORD Normal [facility] CBC W Auto Differential pane l (Bld)on 08-04-2024 Basophils (Bld) [#/Vol] 0.0 10*3/uL 0.0 - 0.2 10*3/uL [facility] Basophils/100 WBC (Bld) 0.1 % 0.0 - 2.0 % [facility] Eosinophils (Bld) [#/Vol] 0.1 10*3/uL 0.0 - 0.5 10*3/uL [facility] Eosinophils/100 WBC (Bld) 0.7 % 0.0 - 6.0 % [facility] [employer] Erythrocyte distribution width (RBC) [Ratio] 17.4 % High 11.5 - 15.0 % [facility] Hematocrit (Bld) [Volume fraction] 26.5 % Low 35.0 - 47.0 % [facility] Hemoglobin (Bld) [Mass/Vol] 8.3 g/dL Low 11.7 - 16.0 g/dL [facility] [employer] Immature granulocytes (Bld) [#/Vol] 0.1 10*3/uL High NINF - 0.1 10*3/uL [facility] Immature granulocytes/100 WBC (Bld) 1.1 % 0.0 - 2.0 % [facility] Interpretation and review of laboratory results Abnormal [facility] Lymphocytes (Bld) [#/Vol] 0.7 10*3/uL Low 1.0 - 4.3 10*3/uL [facility] Lymphocytes/100 WBC (Bld) 8.4 % Low 15.0 - 45.0 % [facility] MCH (RBC) [Entitic mass] 28.5 pg 26.0 - 34.0 pg [facility] [employer] MCHC (RBC) [Mass/Vol] 31.3 % 30.5 - 36.0 % [facility] [employer] MCV (RBC) [Entitic vol] 91.1 fL 77.0 - 99.0 fL [facility] [employer] Monocytes (Bld) [#/Vol] 0.3 10*3/uL 0.0 - 0.9 10*3/uL [facility] [employer] Monocytes/100 WBC (Bld) 3.6 % Low 5.0 - 13.0 % [facility] [employer] Neutrophils (Bld) [#/Vol] 7.4 10*3/uL 1.8 - 7.5 10*3/uL [facility] [employer] Neutrophils/100 WBC (Bld) 86.1 % High 38.0 - 82.0 % [facility] [employer] Nucleated RBC/100 WBC (Bld) [Ratio] 0.0 % [facility] [employer] Platelet mean volume (Bld) [Entitic vol] 9.1 fL 9.0 - 12.7 fL [facility] [employer] Platelets (Bld) [#/Vol] 178 10*3/uL 140 - 440 10*3/uL [facility] RBC (Bld) [#/Vol] 2.91 10*6/uL Low 3.80 - 5.2 0 10*6/uL [facility] WBC (Bld) [#/Vol] 8.5 10*3/uL 3.6 - 10.7 10*3/uL [facility] CBC WITH AUTO DIFFERENTIALon 08-04-2024 Basophils (Bld) [#/Vol] 0.0 10*3/uL Normal 0.0-0.2 [facility] [employer] [facility] Comment on above: Performed By: #### L [id number] ####Textile Engineer: MARY SOTELO ([id number])[address] Basophils/100 WBC (Bld) 0.1 % Normal 0.0-2.0 [facility] [employer] [facility] Comment on above: Performed By: #### L [id number] ####Textile Engineer: MARY SOTELO ([phone])[facility] ([facility])[address] [place] [address] Eosinophils (Bld) [#/Vol] 0.1 10*3/uL Normal 0.0-0.5 [facility] Comment on above: Performed By: #### L [id number] ####Textile Engineer: MARY SOTELO ([phone])[facility])[address] [place] [address] Eosinophils/100 WBC (Bld) 0.7 % Normal 0.0-6.0 [facility] Comment on above: Performed By: #### L [id number] ####Textile Engineer: MARY SOTELO ([phone])[facility])[address] [place] [address] Erythrocyte distribution width (RBC) [Ratio] 17.4 % High 11.5-15.0 [facility] Comment on above: Performed By: #### L [id number] ####Textile Engineer: MARY SOTELO ([phone])[address] Hematocrit (Bld) [Volume fraction] 26.5 % Low 35.0-47.0 [facility] Comment on above: Performed By: #### L [id number] ####Textile Engineer: MARY SOTELO ([id number])[facility])[address] [place] [address] Hemoglobin (Bld) [Mass/Vol] 8.3 g/dL Low 11.7-16.0 [facility] Comment on above: Performed By: #### L [id number] ####Textile Engineer: MARY SOTELO ([phone])[facility])[address] [place] [address] IMMATURE GRANS % 1.1 % Normal 0.0-2.0 [facility] Comment on above: Performed By: #### L [id number] ####Textile Engineer: MARY SOTELO ([phone])[facility])[address] [place] [address] IMMATURE GRANS ABSOLUTE 0.1 10*3/uL High <0.1 [facility] Comment on above: Performed By: #### L [id number] ####Textile Engineer: MARY SOTELO ([id number])[facility])[address] [place] [address] Lymphocytes (Bld) [#/Vol] 0.7 10*3/uL Low 1.0-4.3 [facility] Comment on above: Performed By: #### L [id number] ####Textile Engineer: MARY SOTELO ([phone])[facility])[address] [place] [address] Lymphocytes/100 WBC (Bld) 8.4 % Low 15.0-45.0 [facility] Comment on above: Performed By: #### L [id number] ####Textile Engineer: MARY SOTELO ([phone])[facility])[address] [place] [address] MCH (RBC) [Entitic mass] 28.5 pg Normal 26.0-34.0 [facility] Comment on above: Performed By: #### L [id number] ####Textile Engineer: MARY SOTELO ([phone])[facility])[address] [place] [address] MCHC 31.3 % Normal 30.5-36.0 [facility] Comment on above: Performed By: #### L [id number] ####Textile Engineer: MARY SOTELO ([phone])[facility])[address] [place] [address] MCV (RBC) [Entitic vol] 91.1 fL Normal 77.0-99.0 [facility] Comment on above: Performed By: #### L [id number] ####Textile Engineer: MARY SOTELO ([phone])[facility])[address] [place] [address] Monocytes (Bld) [#/Vol] 0.3 10*3/uL Normal 0.0-0.9 [facility] Comment on above: Performed By: #### L [id number] ####Textile Engineer: MARY SOTELO ([phone])[facility] ([facility])[address] [place] [address] Monocytes/100 WBC (Bld) 3.6 % Low 5.0-13.0 [facility] Comment on above: Performed By: #### L [id number] ####Textile Engineer: MARY SOTELO ([phone])[facility] ([facility])[address] [place] [address] NEUTROPHILS ABSOLUTE 7.4 10*3/uL Normal 1.8-7.5 [facility] Comment on above: Performed By: #### L [id number] ####Textile Engineer: MARY SOTELO ([phone])[facility])[address] [place] [address] Neutrophils/100 WBC (Bld) 86.1 % High 38.0-82.0 [facility] Comment on above: Performed By: #### L [id number] ####Textile Engineer: MARY SOTELO ([id number])[facility] ([facility])[address] [place] [address] NRBC 0.0 /100 WBCs Normal 0.0-2.0 [facility] Comment on above: Performed By: #### L [id number] ####Textile Engineer: MAYR SOTELO ([phone])[facility])[address] [place] [address] Platelet mean volume (Bld) [Entitic vol] 9.1 fL Normal 9.0-12.7 [facility] Comment on above: Performed By: #### L [id number] ####Textile Engineer: MARY SOTELO ([id number])[facility] ([facility])[address] [place] [address] [place] Platelets (Bld) [#/Vol] 178 10*3/uL Normal 140-440 [facility] Comment on above: Performed By: #### L [id number] ####Textile Engineer: MARY SOTELO ([phone])[facility] ([facility])[address] [place] [address] [place] RBC (Bld) [#/Vol] 2.91 10*6/uL Low 3.80-5.20 [facility] Comment on above: Performed By: #### L [id number] ####Textile Engineer: MARY SOTELO ([phone])[facility])[address] [place] [address] WBC (Bld) [#/Vol] 8.5 10*3/uL Normal 3.6-10.7 [facility] Comment on above: Performed By: #### L [id number] ####Textile Engineer: MARY SOTELO ([id number])[facility])[address] [place] [address] Calcium.ionized [Moles/Vol]o n 08-04-2024 Calcium.ionized (Bld) [Moles/Vol] 3.70 mg/dL Low 4.30 - 5.20 mg/dL [facility] Interpretation and review of laboratory results Abnormal [facility] PH, IONIZED CALCIUM 7.45 7.31 - 7.46 [facility] IDNon 08-04-2024 IDN Normal [facility] Laboratory - Chemistry and C hemistry - challengeon 08-04-2024 Glucose [Mass/Vol] 167 mg/dL High 70 - 100 mg/dL [facility] Glucose [Mass/Vol] 181 mg/dL High 70 - 100 mg/dL [facility] Glucose [Mass/Vol] 191 mg/dL High 70 - 100 mg/dL [facility] Glucose [Mass/Vol] 113 mg/dL High 70 - 100 mg/dL [facility] Magnesium [Mass/Vol] 2.0 mg/dL 1.6 - 2 .3 mg/dL [facility] MAGNESIUMon 08-04-2024 Magnesium [Mass/Vol] 2.0 mg/dL Normal 1.6-2.3 [facility] Comment on above: Performed By: #### L [id number], [id number], LAB15 ####Textile Engineer: MARY SOTELO ([phone])[facility])[address] [place] [address] No Panel Informationon 08-04 Interpretation and review of laboratory results Abnormal [facility] Interpretation and review of laboratory results Abnormal [facility] Interpretation and review of laboratory results Abnormal [facility] Interpretation and review of laboratory results Abnormal [facility] Interpretation and review of laboratory results Normal [facility] Nursing Noteon 08-04-2024 Nursing Note Normal [facility] PHOSPHORUSon 08-04-2024 Phosphate [Mass/Vol] 3.4 mg/dL Normal 2.5-4.5 [facility] Comment on above: Performed By: #### L AB113, [id number], LAB15 ####Textile Engineer: MARY SOTELO ([phone])[facility] ([facility])[address] [place] [address] [place] Phosphate [Moles/Vol]on Phosphate [Mass/Vol] 3.4 mg/dL 2.5 - 4 .5 mg/dL [facility] Progress Noteon 08-04-[address] [facility] Progress Note [facility] Progress Note [facility] Progress Note [facility] RF videography Hypopharynx a nd Esophagus Views for swallowing function W speech and W barium contrast [place] 08-04-2024 [facility] Radiology Study observation (narrative) [facility] RF videography Hypopharynx a nd Esophagus Views for swallowing function W speech and W barium contrast POOrdered By: Mynor Pulido on 08-04-2024 [facility] Work Phone: BASIC METABOLIC PANELon Anion gap [Moles/Vol] 1 mmol/L Low 3-[address] [facility] Comment on above: Performed By: #### L AB103, LAB15, [id number] ####Textile Engineer: MARY SOTELO ([id number])[facility] ([facility])[address] [place] [address] [place] Calcium [Mass/Vol] 7.4 mg/dL Low 8.4-10.4 [facility] Comment on above: Performed By: #### L AB103, LAB15, [id number] ####Textile Engineer: MARY SOTELO ([id number])[facility] ([facility])[address] [place] [address] [place] Chloride [Moles/Vol] 110 mmol/L High 98-107 [facility] Comment on above: Performed By: #### L AB103, LAB15, [id number] ####Textile Engineer: MARY SOTELO ([phone])[facility] [place] [address] CO2 [Moles/Vol] 26 mmol/L Normal 22-30 [facility] Comment on above: Performed By: #### L AB103, LAB15, [id number] ####Textile Engineer: MARY SOTELO ([id number])[facility] ([facility])[address] [place] [address] Creatinine [Mass/Vol] 2.29 mg/dL High 0.52-1.[address] [facility] Comment on above: Performed By: #### Dora ABErika, LAB15, [id number] ####Textile Engineer: MARY SOTELO ([phone])[facility] ([facility])[address] [place] [address] GLOMERULAR FILTRATION RATE ML/MIN/1.73 SQ M.PREDICTED 23.3 mL/min/1.73m*2 Low >60.0 [facility] Comment on above: Result Comment: Calc ulation based on the Chronic Kidney Disease Epidemiology Collaboration (CKD-EPI) equation refit without adjustment for race Performed By: #### L NOHEMI, LAB15, [id number] ####Textile Engineer: MARY SOTELO ([id number])[facility] ([facility])[address] [place] [address] [place] Glucose [Mass/Vol] 87 mg/dL Normal 70-100 [facility] Comment on above: Performed By: #### L AB103, LAB15, [id number] ####Textile Engineer: MARY SOTELO ([phone])[facility])[address] [place] [address] Potassium [Moles/Vol] 4.3 mmol/L Normal 3.5-5.[address] [facility] Comment on above: Performed By: #### L AB103, LAB15, [id number] ####Textile Engineer: MARY SOTELO ([phone])[facility] ([facility])[address] [place] [address] Sodium [Moles/Vol] 137 mmol/L Normal 135-145 [facility] Comment on above: Performed By: #### L AB103, LAB15, [id number] ####Textile Engineer: MARY SOTELO ([phone])[facility] ([facility])[address] [place] [address] Urea nitrogen [Mass/Vol] 28 mg/dL High 7-17 [facility] Comment on above: Performed By: #### L AB103, LAB15, [id number] ####Textile Engineer: MARY SOTELO ([id number])[facility] ([facility])[address] [place] [address] Basic metabolic 1998 panelon 08-03-2024 Anion gap [Moles/Vol] 1 mmol/L Low 3 - 13 mmol/L [facility] Calcium [Mass/Vol] 7.4 mg/dL Low 8.4 - 10. 4 mg/dL [facility] Chloride [Moles/Vol] 110 mmol/L High 98 - 10 7 mmol/L [facility] CO2 [Moles/Vol] 26 mmol/L 22 - 30 mmol/L [facility] Creatinine [Mass/Vol] 2.29 mg/dL High 0.52 - 1.04 mg/dL [facility] GFR/1.73 sq M.predicted (S/P/Bld) [Vol rate/Area] 23.3 mL/min Low - PINF [facility] Glucose [Mass/Vol] 87 mg/dL 70 - 100 mg/dL [facility] Potassium [Moles/Vol] 4.3 mmol/L 3.5 - 5.1 mmol/L [facility] Sodium [Moles/Vol] 137 mmol/L 135 - 145 mmol/L [facility] Urea nitrogen [Mass/Vol] 28 mg/dL High 7 - 17 mg/dL [facility] CALCIUM, IONIZEDon CALCIUM IONIZED 4.20 mg/dL Low 4.30-5.20 [facility] Comment on above: Performed By: #### L [id number] ####Textile Engineer: MARY SOTELO ([id number])[facility] [place] [address] PH, IONIZED CALCIUM 7.29 Low 7.31-7.46 [facility] Comment on above: Performed By: #### L [id number] ####Textile Engineer: MARY SOTELO ([phone])[facility] [place] [address] CARECOORDon 08-03-2024 CARECOORD Normal [facility] CBC W Auto Differential pane l (Bld)Ordered By: Irais Carranza on 08-03-2024 Basophils (Bld) [#/Vol] 0.0 10*3/uL 0.0 - 0.2 10*3/uL [employer] Basophils/100 WBC (Bld) 0.2 % 0.0 - 2.0 % [facility] Eosinophils (Bld) [#/Vol] 0.1 10*3/uL 0.0 - 0.5 10*3/uL [facility] [employer] Eosinophils/100 WBC (Bld) 0.5 % 0.0 - 6.0 % [facility] Erythrocyte distribution width (RBC) [Ratio] 18.1 % High 11.5 - 15.0 % [employer] Hematocrit (Bld) [Volume fraction] 28.6 % Low 35.0 - 47.0 % [facility] Hemoglobin (Bld) [Mass/Vol] 8.5 g/dL Low 11.7 - 16.0 g/dL [facility] [employer] Immature granulocytes (Bld) [#/Vol] 0.1 10*3/uL High NINF - 0.1 10*3/uL [employer] Immature granulocytes/100 WBC (Bld) 1.1 % 0.0 - 2.0 % [facility] Interpretation and review of laboratory results Abnormal [facility] [employer] Lymphocytes (Bld) [#/Vol] 0.7 10*3/uL Low 1.0 - 4.3 10*3/uL [facility] [employer] Lymphocytes/100 WBC (Bld) 6.5 % Low 15.0 - 45.0 % [facility] MCH (RBC) [Entitic mass] 27.4 pg 26.0 - 34.0 pg [facility] MCHC (RBC) [Mass/Vol] 29.7 % Low 30.5 - 36.0 % [facility] MCV (RBC) [Entitic vol] 92.3 fL 77.0 - 99.0 fL [facility] Monocytes (Bld) [#/Vol] 0.3 10*3/uL 0.0 - 0.9 10*3/uL [facility] Monocytes/100 WBC (Bld) 3.0 % Low 5.0 - 13.0 % [facility] Neutrophils (Bld) [#/Vol] 9.6 10*3/uL High 1.8 - 7.5 10*3/uL [facility] Neutrophils/100 WBC (Bld) 88.7 % High 38.0 - 82.0 % [facility] Nucleated RBC/100 WBC (Bld) [Ratio] 0.0 % [facility] Platelet mean volume (Bld) [Entitic vol] 9.9 fL 9.0 - 12.7 fL [facility] Platelets (Bld) [#/Vol] 210 10*3/uL 140 - 440 10*3/uL [facility] RBC (Bld) [#/Vol] 3.10 10*6/uL Low 3.80 - 5.2 0 10*6/uL [facility] WBC (Bld) [#/Vol] 10.8 10*3/uL High 3.6 - 10.7 10*3/uL [facility] CBC WITH AUTO DIFFERENTIALon 08-03-2024 Basophils (Bld) [#/Vol] 0.0 10*3/uL Normal 0.0-0.2 [facility] Comment on above: Performed By: #### L [id number] ####Textile Engineer: MARY SOTELO ([id number])[address] Basophils/100 WBC (Bld) 0.2 % Normal 0.0-2.0 [facility] Comment on above: Performed By: #### L [id number] ####Textile Engineer: MARY SOTELO ([id number])[facility])[address] [place] [address] Eosinophils (Bld) [#/Vol] 0.1 10*3/uL Normal 0.0-0.5 [facility] Comment on above: Performed By: #### L [id number] ####Textile Engineer: MARY SOTELO ([id number])[address] Eosinophils/100 WBC (Bld) 0.5 % Normal 0.0-6.0 [facility] Comment on above: Performed By: #### L [id number] ####Textile Engineer: MARY SOTELO ([id number])[facility])[address] [place] [address] Erythrocyte distribution width (RBC) [Ratio] 18.1 % High 11.5-15.0 [facility] Comment on above: Performed By: #### L [id number] ####Textile Engineer: MARY SOTELO ([id number])[address] Hematocrit (Bld) [Volume fraction] 28.6 % Low 35.0-47.0 [facility] Comment on above: Performed By: #### L [id number] ####Textile Engineer: MARY SOTELO ([id number])[address] Hemoglobin (Bld) [Mass/Vol] 8.5 g/dL Low 11.7-16.0 [facility] Comment on above: Performed By: #### L [id number] ####Textile Engineer: MARY SOTELO ([id number])[address] IMMATURE GRANS % 1.1 % Normal 0.0-2.0 [facility] Comment on above: Performed By: #### L [id number] ####Textile Engineer: MARY SOTELO ([id number])[address] IMMATURE GRANS ABSOLUTE 0.1 10*3/uL High <0.1 [facility] Comment on above: Performed By: #### L [id number] ####Textile Engineer: MARY [id number])[facility])[address] [place] [address] Lymphocytes (Bld) [#/Vol] 0.7 10*3/uL Low 1.0-4.3 [facility] Comment on above: Performed By: #### L [id number] ####Textile Engineer: MARY SOTELO ([phone])[facility])[address] [place] [address] Lymphocytes/100 WBC (Bld) 6.5 % Low 15.0-45.0 [facility] Comment on above: Performed By: #### L [id number] ####Textile Engineer: MARY SOTELO ([id number])[facility])[address] [place] [address] MCH (RBC) [Entitic mass] 27.4 pg Normal 26.0-34.0 [facility] Comment on above: Performed By: #### L [id number] ####Textile Engineer: MARY SOTELO ([id number])[facility])[address] [place] [address] MCHC 29.7 % Low 30.5-36.0 [facility] Comment on above: Performed By: #### L [id number] ####Textile Engineer: MARY SOTELO ([id number])[facility])[address] [place] [address] MCV (RBC) [Entitic vol] 92.3 fL Normal 77.0-99.0 [facility] Comment on above: Performed By: #### L [id number] ####Textile Engineer: MARY SOTELO ([id number])[facility])[address] [place] [address] Monocytes (Bld) [#/Vol] 0.3 10*3/uL Normal 0.0-0.9 [facility] Comment on above: Performed By: #### L [id number] ####Textile Engineer: MARY SOTELO ([id number])[facility])[address] [place] [address] Monocytes/100 WBC (Bld) 3.0 % Low 5.0-13.0 [facility] Comment on above: Performed By: #### L [id number] ####Textile Engineer: MARY SOTELO ([id number])[facility] ([facility])[address] [place] [address] NEUTROPHILS ABSOLUTE 9.6 10*3/uL High 1.8-7.5 [facility] Comment on above: Performed By: #### L [id number] ####Textile Engineer: MARY SOTELO ([id number])[facility] ([facility])[address] [place] [address] Neutrophils/100 WBC (Bld) 88.7 % High 38.0-82.0 [facility] Comment on above: Performed By: #### L [id number] ####Textile Engineer: MARY SOTELO ([id number])[facility] ([facility])[address] [place] [address] NRBC 0.0 /100 WBCs Normal 0.0-2.0 [facility] Comment on above: Performed By: #### L [id number] ####Textile Engineer: MARY SOTELO ([id number])[facility] ([facility])[address] [place] [address] Platelet mean volume (Bld) [Entitic vol] 9.9 fL Normal 9.0-12.7 [facility] Comment on above: Performed By: #### L [id number] ####Textile Engineer: MARY SOTELO ([id number])[facility] ([facility])[address] [place] [address] Platelets (Bld) [#/Vol] 210 10*3/uL Normal 140-440 [facility] Comment on above: Performed By: #### L [id number] ####Textile Engineer: MARY SOTELO ([id number])[facility] ([facility])[address] [place] [address] RBC (Bld) [#/Vol] 3.10 10*6/uL Low 3.80-5.20 [facility] Comment on above: Performed By: #### L [id number] ####Textile Engineer: MARY SOTELO ([id number])[facility])[address] [place] [address] WBC (Bld) [#/Vol] 10.8 10*3/uL High 3.6-10.7 [facility] Comment on above: Performed By: #### L [id number] ####Textile Engineer: MARY SOTELO ([id number])[facility] ([facility])[address] [place] [address] Calcium.ionized [Moles/Vol]o n 08-03-2024 Calcium.ionized (Bld) [Moles/Vol] 4.20 mg/dL Low 4.30 - 5.20 mg/dL [facility] Interpretation and review of laboratory results Abnormal [facility] PH, IONIZED CALCIUM 7.29 Low 7.31 - 7.46 [facility] Laboratory - Chemistry and C hemistry - challengeon 08-03-2024 Glucose [Mass/Vol] 118 mg/dL High 70 - 100 mg/dL [facility] Glucose [Mass/Vol] 93 mg/dL 70 - 100 mg/dL [facility] Glucose [Mass/Vol] 173 mg/dL High 70 - 100 mg/dL [facility] Glucose [Mass/Vol] 81 mg/dL 70 - 100 mg/dL [facility] Magnesium [Mass/Vol] 2.4 mg/dL High 1.6 - 2 .3 mg/dL [facility] Glucose [Mass/Vol] 88 mg/dL 70 - 100 mg/dL [facility] MAGNESIUMon 08-03-2024 Magnesium [Mass/Vol] 2.4 mg/dL High 1.6-2.3 [facility] Comment on above: Performed By: #### L AB103, LAB15, [id number] ####Textile Engineer: MARY SOTELO ([id number])[facility])[address] [place] [address] No Panel Informationon 08-03 Interpretation and review of laboratory results Abnormal [facility] Interpretation and review of laboratory results Normal [facility] Interpretation and review of laboratory results Abnormal [facility] Interpretation and review of laboratory results Normal [facility] Interpretation and review of laboratory results Abnormal [facility] Interpretation and review of laboratory results Normal [facility] Nursing Noteon 08-03-2024 Nursing Note Normal [facility] PHOSPHORUSon 08-03-2024 Phosphate [Mass/Vol] 3.4 mg/dL Normal 2.5-4.5 [facility] Comment on above: Performed By: #### L AB103, LAB15, [id number] ####Textile Engineer: MARY SOTELO ([id number])[facility])[address] [place] [address] [place] Phosphate [Moles/Vol]on Interpretation and review of laboratory results Normal [facility] Phosphate [Mass/Vol] 3.4 mg/dL 2.5 - 4 .5 mg/dL [facility] Progress Noteon 08-03-[address] [facility] Progress Note Normal [facility] Progress Note Normal [facility] BASIC METABOLIC PANELon 09-3 Anion gap [Moles/Vol] 3 mmol/L Normal 3-13 [facility] Comment on above: Performed By: #### L AB113, LAB15, [id number] ####Textile Engineer: MARY SOTELO ([id number])[facility] ([facility])[address] [place] [address] [place] Calcium [Mass/Vol] 7.4 mg/dL Low 8.4-10.4 [facility] Comment on above: Performed By: #### L AB113, LAB15, [id number] ####Textile Engineer: MARY SOTELO ([id number])[facility])[address] [place] [address] [place] Chloride [Moles/Vol] 107 mmol/L Normal 98-107 [facility] Comment on above: Performed By: #### L AB113, LAB15, [id number] ####Textile Engineer: MARY SOTELO ([id number])[facility] ([facility])[address] [place] [address] CO2 [Moles/Vol] 23 mmol/L Normal 22-30 [facility] Comment on above: Performed By: #### L AB113, LAB15, [id number] ####Textile Engineer: MARY SOTELO ([id number])[facility] [place] [address] Creatinine [Mass/Vol] 1.55 mg/dL High 0.52-1.[address] [facility] Comment on above: Performed By: #### L AB113, LAB15, [id number] ####Textile Engineer: MARY SOTELO ([id number])[facility] ([facility])[address] [place] [address] GLOMERULAR FILTRATION RATE ML/MIN/1.73 SQ M.PREDICTED 37.3 mL/min/1.73m*2 Low >60.0 [facility] Comment on above: Result Comment: Calc ulation based on the Chronic Kidney Disease Epidemiology Collaboration (CKD-EPI) equation refit without adjustment for race Performed By: #### L AB113, LAB15, [id number] ####Textile Engineer: MARY SOTELO ([id number])[facility] ([facility])[address] [place] [address] Glucose [Mass/Vol] 212 mg/dL High 70-100 [facility] Comment on above: Performed By: #### L AB113, LAB15, [id number] ####Textile Engineer: MARY SOTEOL ([id number])[facility] ([facility])[address] [place] [address] [place] Potassium [Moles/Vol] 4.1 mmol/L Normal 3.5-5.[address] [facility] Comment on above: Performed By: #### L AB113, LAB15, [id number] ####Textile Engineer: MARY SOTELO ([id number])[facility] [place] [address] Sodium [Moles/Vol] 134 mmol/L Low 135-145 [facility] Comment on above: Performed By: #### L AB113, LAB15, [id number] ####Textile Engineer: MARY SOTELO ([id number])[facility] ([facility])[address] [place] [address] Urea nitrogen [Mass/Vol] 21 mg/dL High 7-17 [facility] Comment on above: Performed By: #### L AB113, LAB15, [id number] ####Textile Engineer: MARY SOTELO ([phone])[facility] ([facility])[address] [place] [address] Basic metabolic 1998 panelon 08-02-2024 Anion gap [Moles/Vol] 3 mmol/L 3 - 13 mmol/L [facility] Calcium [Mass/Vol] 7.4 mg/dL Low 8.4 - 10. 4 mg/dL [facility] Chloride [Moles/Vol] 107 mmol/L 98 - 10 7 mmol/L [facility] CO2 [Moles/Vol] 23 mmol/L 22 - 30 mmol/L [facility] Creatinine [Mass/Vol] 1.55 mg/dL High 0.52 - 1.04 mg/dL [facility] GFR/1.73 sq M.predicted (S/P/Bld) [Vol rate/Area] 37.3 mL/min Low - PINF [facility] Glucose [Mass/Vol] 212 mg/dL High 70 - 100 mg/dL [facility] Interpretation and review of laboratory results Abnormal [facility] Potassium [Moles/Vol] 4.1 mmol/L 3.5 - 5.1 mmol/L [facility] Sodium [Moles/Vol] 134 mmol/L Low 135 - 145 mmol/L [facility] Urea nitrogen [Mass/Vol] 21 mg/dL High 7 - 17 mg/dL [facility] CALCIUM, IONIZEDon 4 CALCIUM IONIZED 4.30 mg/dL Normal 4.30-5.20 [facility] Comment on above: Performed By: #### L [id number] ####Textile Engineer: MARY SOTELO ([id number])[facility] [place] [address] PH, IONIZED CALCIUM 7.36 Normal 7.31-7.46 [facility] Comment on above: Performed By: #### L [id number] ####Textile Engineer: MARY SOTELO ([phone])[address] CARECOORDon 08-02-2024 CARECOOMRO Normal [facility] CARECOOMRO Normal [facility] CBC W Auto Differential pane l (Bld)on 08-02-2024 Basophils (Bld) [#/Vol] 0.0 10*3/uL 0.0 - 0.2 10*3/uL [facility] Basophils/100 WBC (Bld) 0.1 % 0.0 - 2.0 % [facility] Eosinophils (Bld) [#/Vol] 0.0 10*3/uL 0.0 - 0.5 10*3/uL [facility] Eosinophils/100 WBC (Bld) 0.4 % 0.0 - 6.0 % [facility] Erythrocyte distribution width (RBC) [Ratio] 17.8 % High 11.5 - 15.0 % [facility] Hematocrit (Bld) [Volume fraction] 24.7 % Low 35.0 - 47.0 % [facility] Hemoglobin (Bld) [Mass/Vol] 7.8 g/dL Low 11.7 - 16.0 g/dL [facility] Immature granulocytes (Bld) [#/Vol] 0.1 10*3/uL High NINF - 0.1 10*3/uL [facility] Immature granulocytes/100 WBC (Bld) 0.6 % 0.0 - 2.0 % [facility] Interpretation and review of laboratory results Abnormal [facility] Lymphocytes (Bld) [#/Vol] 0.4 10*3/uL Low 1.0 - 4.3 10*3/uL [facility] Lymphocytes/100 WBC (Bld) 4.5 % Low 15.0 - 45.0 % [facility] MCH (RBC) [Entitic mass] 28.4 pg 26.0 - 34.0 pg [facility] MCHC (RBC) [Mass/Vol] 31.6 % 30.5 - 36.0 % [facility] MCV (RBC) [Entitic vol] 89.8 fL 77.0 - 99.0 fL [facility] Monocytes (Bld) [#/Vol] 0.2 10*3/uL 0.0 - 0.9 10*3/uL [facility] Monocytes/100 WBC (Bld) 2.1 % Low 5.0 - 13.0 % [facility] Neutrophils (Bld) [#/Vol] 9.0 10*3/uL High 1.8 - 7.5 10*3/uL [facility] Neutrophils/100 WBC (Bld) 92.3 % High 38.0 - 82.0 % [facility] Nucleated RBC/100 WBC (Bld) [Ratio] 0.0 % [facility] Platelet mean volume (Bld) [Entitic vol] 10.4 fL 9.0 - 12.7 fL [facility] Platelets (Bld) [#/Vol] 177 10*3/uL 140 - 440 10*3/uL [facility] RBC (Bld) [#/Vol] 2.75 10*6/uL Low 3.80 - 5.2 0 10*6/uL [facility] WBC (Bld) [#/Vol] 9.8 10*3/uL 3.6 - 10.7 10*3/uL [facility] CBC WITH AUTO DIFFERENTIALon 08-02-2024 Basophils (Bld) [#/Vol] 0.0 10*3/uL Normal 0.0-0.2 [facility] Comment on above: Performed By: #### L [id number] ####Textile Engineer: MARY SOTELO ([phone])[address] Basophils/100 WBC (Bld) 0.1 % Normal 0.0-2.0 [facility] Comment on above: Performed By: #### L [id number] ####Textile Engineer: MARY SOTELO ([id number])[facility])[address] [place] [address] [place] Eosinophils (Bld) [#/Vol] 0.0 10*3/uL Normal 0.0-0.5 [facility] Comment on above: Performed By: #### L [id number] ####Textile Engineer: MARY SOTELO ([phone])[facility])[address] [place] [address] [place] Eosinophils/100 WBC (Bld) 0.4 % Normal 0.0-6.0 [facility] Comment on above: Performed By: #### L [id number] ####Textile Engineer: MARY SOTELO ([phone])[facility])[address] [place] [address] Erythrocyte distribution width (RBC) [Ratio] 17.8 % High 11.5-15.0 [facility] Comment on above: Performed By: #### L [id number] ####Textile Engineer: MARY SOTELO ([id number])[facility])[address] [place] [address] Hematocrit (Bld) [Volume fraction] 24.7 % Low 35.0-47.0 [facility] Comment on above: Performed By: #### L [id number] ####Textile Engineer: MARY SOTELO ([id number])[address] Hemoglobin (Bld) [Mass/Vol] 7.8 g/dL Low 11.7-16.0 [facility] Comment on above: Performed By: #### L [id number] ####Textile Engineer: MARY SOTELO ([phone])[facility])[address] [place] [address] IMMATURE GRANS % 0.6 % Normal 0.0-2.0 [facility] Comment on above: Performed By: #### L [id number] ####Textile Engineer: MARY SOTELO ([phone])[facility])[address] [place] [address] IMMATURE GRANS ABSOLUTE 0.1 10*3/uL High <0.1 [facility] Comment on above: Performed By: #### L [id number] ####Textile Engineer: MARY SOTELO ([phone])[facility])[address] [place] [address] Lymphocytes (Bld) [#/Vol] 0.4 10*3/uL Low 1.0-4.3 [facility] Comment on above: Performed By: #### L [id number] ####Textile Engineer: MARY SOTELO ([id number])[facility])[address] [place] [address] Lymphocytes/100 WBC (Bld) 4.5 % Low 15.0-45.0 [facility] Comment on above: Performed By: #### L [id number] ####Textile Engineer: MARY SOTELO ([phone])[facility])[address] [place] [address] MCH (RBC) [Entitic mass] 28.4 pg Normal 26.0-34.0 [facility] Comment on above: Performed By: #### L [id number] ####Textile Engineer: MARY SOTELO ([phone])[facility])[address] [place] [address] MCHC 31.6 % Normal 30.5-36.0 [facility] Comment on above: Performed By: #### L [id number] ####Textile Engineer: MARY SOTELO ([phone])[facility])[address] [place] [address] MCV (RBC) [Entitic vol] 89.8 fL Normal 77.0-99.0 [facility] Comment on above: Performed By: #### L [id number] ####Textile Engineer: MARY SOTELO ([phone])[facility])[address] [place] [address] Monocytes (Bld) [#/Vol] 0.2 10*3/uL Normal 0.0-0.9 [facility] Comment on above: Performed By: #### L [id number] ####Textile Engineer: MARY SOTELO ([id number])[facility])[address] [place] [address] Monocytes/100 WBC (Bld) 2.1 % Low 5.0-13.0 [facility] Comment on above: Performed By: #### L [id number] ####Textile Engineer: MARY SOTELO ([id number])[facility] ([facility])[address] [place] [address] NEUTROPHILS ABSOLUTE 9.0 10*3/uL High 1.8-7.5 [facility] Comment on above: Performed By: #### L [id number] ####Textile Engineer: MARY SOTELO ([phone])[facility] ([facility])[address] [place] [address] Neutrophils/100 WBC (Bld) 92.3 % High 38.0-82.0 [facility] Comment on above: Performed By: #### L [id number] ####Textile Engineer: MARY SOTELO ([id number])[facility] ([facility])[address] [place] [address] NRBC 0.0 /100 WBCs Normal 0.0-2.0 [facility] Comment on above: Performed By: #### L [id number] ####Textile Engineer: MARY SOTELO ([id number])[facility] ([facility])[address] [place] [address] Platelet mean volume (Bld) [Entitic vol] 10.4 fL Normal 9.0-12.7 [facility] Comment on above: Performed By: #### L [id number] ####Textile Engineer: MARY SOTELO ([id number])[facility] ([facility])[address] [place] [address] [place] Platelets (Bld) [#/Vol] 177 10*3/uL Normal 140-440 [facility] Comment on above: Performed By: #### L [id number] ####Textile Engineer: MARY SOTELO ([id number])[facility] ([facility])[address] [place] [address] [place] RBC (Bld) [#/Vol] 2.75 10*6/uL Low 3.80-5.20 [facility] Comment on above: Performed By: #### L [id number] ####Textile Engineer: MARY SOTELO ([id number])[facility] ([facility])[address] [place] [address] [place] WBC (Bld) [#/Vol] 9.8 10*3/uL Normal 3.6-10.7 [facility] Comment on above: Performed By: #### L [id number] ####Textile Engineer: MARY SOTELO ([id number])[facility] [place] [address] Calcium.ionized [Moles/Vol]o n 08-02-2024 Calcium.ionized (Bld) [Moles/Vol] 4.30 mg/dL 4.30 - 5.20 mg/dL [facility] Interpretation and review of laboratory results Normal [facility] PH, IONIZED CALCIUM 7.36 7.31 - 7.46 [facility] ECG 12-LEADon 08-02-2024 ECG 12-LEAD IMPRESSION: Unclear atrial rhythm - consider accelerated junctional Right bundle branch block Electronically Signed On 08-02-2024 08:53:44 EDT by Khai Duong Normal [facility] - Chemistry and C hemistry - challengeon 08-02-2024 Glucose [Mass/Vol] 211 mg/dL High 70 - 100 mg/dL [facility] Glucose [Mass/Vol] 202 mg/dL High 70 - 100 mg/dL [facility] Glucose [Mass/Vol] 180 mg/dL High 70 - 100 mg/dL [facility] Magnesium [Mass/Vol] 2.3 mg/dL 1.6 - 2 .3 mg/dL [facility] Glucose [Mass/Vol] 217 mg/dL High 70 - 100 mg/dL [facility] MAGNESIUMon 08-02-2024 Magnesium [Mass/Vol] 2.3 mg/dL Normal 1.6-2.3 [facility] Comment on above: Performed By: #### L [id number], [id number], [id number] ####Textile Engineer: MARY SOTELO ([id number])[facility] ([facility])[address] [place] [address] No Panel Informationon 08-02 Interpretation and review of laboratory results Abnormal [facility] Interpretation and review of laboratory results Abnormal [facility] CV EPIPHANY [facility] Interpretation and review of laboratory results Abnormal [facility] Interpretation and review of laboratory results Normal [facility] Interpretation and review of laboratory results Abnormal [facility] [employer] No Panel InformationOrdered By: Khai Duong on 08-02-2024 [address] [place] [address] [facility] [employer] Work Phone: OK Interval [address] [facility] [employer] Work Phone: QRS [place] -[address] [facility] Work Phone: QRSD Interval [address] [facility] DySISmedicalt h Work Phone: QT Interval [address] [facility] [employer] Work Phone: QTC Interval [address] [facility] [employer] Work Phone: T Wave [place] [address] [facility] [employer] Work Phone: [facility] Work Phone: PHOSPHORUSon 08-02-2024 Phosphate [Mass/Vol] 3.0 mg/dL Normal 2.5-4.5 [facility] Comment on above: Performed By: #### L AB113, LAB15, [id number] ####Textile Engineer: MARY SOTELO ([id number])[facility])[address] [place] [address] Phosphate [Moles/Vol]on 07-06 Phosphate [Mass/Vol] 3.0 mg/dL 2.5 - 4 .5 mg/dL [facility] Progress Noteon 08-02-2024 Progress Note Normal [facility] Progress Note Normal [facility] Progress Note Normal [facility] Progress Note Normal [facility] Progress Note Normal [facility] Progress Note Normal [facility] Vital signsOrdered By: Khai Duong on 08-02-2024 Heart rate 73 /min bpm [facility] [employer] Work Phone: CALCIUM, IONIZEDon CALCIUM IONIZED 4.10 mg/dL Low 4.30-5.20 [facility] Comment on above: Performed By: #### L AB54 ####Textile Engineer: MARY SOTELO ([phone])[facility] ([facility])[address] [place] [address] PH, IONIZED CALCIUM 7.38 Normal 7.31-7.46 [facility] Comment on above: Performed By: #### L AB54 ####Textile Engineer: MARY SOTELO ([id number])[facility])[address] [place] [address] CALCIUM IONIZED 4.30 mg/dL Normal 4.30-5.20 [facility] Comment on above: Performed By: #### L AB54 ####Textile Engineer: MARY SOTELO ([id number])[facility])[address] [place] [address] PH, IONIZED CALCIUM 7.32 Normal 7.31-7.46 [facility] Comment on above: Performed By: #### L AB54 ####Textile Engineer: MARY SOTELO ([phone])[facility])[address] [place] [address] CALCIUM IONIZED 4.50 mg/dL Normal 4.30-5.20 [facility] Comment on above: Performed By: #### L AB54 ####Textile Engineer: MARY SOTELO ([id number])[facility])[address] [place] [address] PH, IONIZED CALCIUM 7.31 Normal 7.31-7.46 [facility] Comment on above: Performed By: #### L AB54 ####Textile Engineer: MARY SOTELO ([id number])[facility])[address] [place] [address] CBC W Auto Differential pane l (Bld)on 08-01-2024 Basophils (Bld) [#/Vol] 0.0 10*3/uL 0.0 - 0.2 10*3/uL [facility] Basophils/100 WBC (Bld) 0.1 % 0.0 - 2.0 % [facility] Eosinophils (Bld) [#/Vol] 0.1 10*3/uL 0.0 - 0.5 10*3/uL [facility] Eosinophils/100 WBC (Bld) 0.7 % 0.0 - 6.0 % [facility] Erythrocyte distribution width (RBC) [Ratio] 17.1 % High 11.5 - 15.0 % [facility] [employer] Hematocrit (Bld) [Volume fraction] 25.9 % Low 35.0 - 47.0 % [facility] Hemoglobin (Bld) [Mass/Vol] 8.3 g/dL Low 11.7 - 16.0 g/dL [facility] [employer] Immature granulocytes (Bld) [#/Vol] 0.0 10*3/uL NINF - 0.1 10*3/uL [facility] Immature granulocytes/100 WBC (Bld) 0.3 % 0.0 - 2.0 % [facility] Interpretation and review of laboratory results Abnormal [facility] [employer] Lymphocytes (Bld) [#/Vol] 1.0 10*3/uL 1.0 - 4.3 10*3/uL [facility] Lymphocytes/100 WBC (Bld) 9.9 % Low 15.0 - 45.0 % [facility] [employer] MCH (RBC) [Entitic mass] 28.2 pg 26.0 - 34.0 pg [facility] [employer] MCHC (RBC) [Mass/Vol] 32.0 % 30.5 - 36.0 % [facility] [employer] MCV (RBC) [Entitic vol] 88.1 fL 77.0 - 99.0 fL [facility] [employer] Monocytes (Bld) [#/Vol] 0.5 10*3/uL 0.0 - 0.9 10*3/uL [facility] Monocytes/100 WBC (Bld) 4.9 % Low 5.0 - 13.0 % [facility] [employer] Neutrophils (Bld) [#/Vol] 8.7 10*3/uL High 1.8 - 7.5 10*3/uL [facility] Neutrophils/100 WBC (Bld) 84.1 % High 38.0 - 82.0 % [facility] [employer] Nucleated RBC/100 WBC (Bld) [Ratio] 0.0 % [facility] [employer] Platelet mean volume (Bld) [Entitic vol] 11.0 fL 9.0 - 12.7 fL [facility] [employer] Platelets (Bld) [#/Vol] 156 10*3/uL 140 - 440 10*3/uL [facility] RBC (Bld) [#/Vol] 2.94 10*6/uL Low 3.80 - 5.2 0 10*6/uL [facility] WBC (Bld) [#/Vol] 10.4 10*3/uL 3.6 - 10.7 10*3/uL [facility] CBC WITH AUTO DIFFERENTIALon 08-01-2024 Basophils (Bld) [#/Vol] 0.0 10*3/uL Normal 0.0-0.2 [facility] Comment on above: Performed By: #### L [id number] ####Textile Engineer: MARY SOTELO ([id number])[facility])[address] [place] [address] Basophils/100 WBC (Bld) 0.1 % Normal 0.0-2.0 [facility] Comment on above: Performed By: #### L [id number] ####Textile Engineer: MARY SOTELO ([id number])[facility])[address] [place] [address] Eosinophils (Bld) [#/Vol] 0.1 10*3/uL Normal 0.0-0.5 [facility] Comment on above: Performed By: #### L [id number] ####Textile Engineer: MARY SOTELO ([id number])[facility])[address] [place] [address] Eosinophils/100 WBC (Bld) 0.7 % Normal 0.0-6.0 [facility] Comment on above: Performed By: #### L [id number] ####Textile Engineer: MARY SOTELO ([id number])[facility])[address] [place] [address] Erythrocyte distribution width (RBC) [Ratio] 17.1 % High 11.5-15.0 [facility] Comment on above: Performed By: #### L [id number] ####Textile Engineer: MARY SOTELO ([id number])[facility])[address] [place] [address] Hematocrit (Bld) [Volume fraction] 25.9 % Low 35.0-47.0 [facility] Comment on above: Performed By: #### L [id number] ####Textile Engineer: MARY SOTELO ([id number])[facility])[address] [place] [address] Hemoglobin (Bld) [Mass/Vol] 8.3 g/dL Low 11.7-16.0 [facility] Comment on above: Performed By: #### L [id number] ####Textile Engineer: MARY SOTELO ([id number])[facility])[address] [place] [address] IMMATURE GRANS % 0.3 % Normal 0.0-2.0 [facility] Comment on above: Performed By: #### L [id number] ####Textile Engineer: MARY SOTELO ([id number])[address] IMMATURE GRANS ABSOLUTE 0.0 10*3/uL Normal <0.1 [facility] Comment on above: Performed By: #### L [id number] ####Textile Engineer: MARY SOTELO ([id number])[facility])[address] [place] [address] Lymphocytes (Bld) [#/Vol] 1.0 10*3/uL Normal 1.0-4.3 [facility] Comment on above: Performed By: #### L [id number] ####Textile Engineer: MARY SOTELO ([id number])[address] Lymphocytes/100 WBC (Bld) 9.9 % Low 15.0-45.0 [facility] Comment on above: Performed By: #### L [id number] ####Textile Engineer: MARY SOTELO ([id number])[facility])[address] [place] [address] MCH (RBC) [Entitic mass] 28.2 pg Normal 26.0-34.0 [facility] Comment on above: Performed By: #### L [id number] ####Textile Engineer: MARY SOTELO ([id number])[place] [address] [place] MCHC 32.0 % Normal 30.5-36.0 [facility] Comment on above: Performed By: #### L [id number] ####Textile Engineer: MARY SOTELO ([id number])[facility])[address] [place] [address] MCV (RBC) [Entitic vol] 88.1 fL Normal 77.0-99.0 [facility] Comment on above: Performed By: #### L [id number] ####Textile Engineer: MARY SOTELO ([id number])[facility] ([facility])[address] [place] [address] Monocytes (Bld) [#/Vol] 0.5 10*3/uL Normal 0.0-0.9 [facility] Comment on above: Performed By: #### L [id number] ####Textile Engineer: MARY SOTELO ([id number])[facility] ([facility])[address] [place] [address] Monocytes/100 WBC (Bld) 4.9 % Low 5.0-13.0 [facility] Comment on above: Performed By: #### L [id number] ####Textile Engineer: MARY SOTELO ([id number])[facility] ([facility])[address] [place] [address] NEUTROPHILS ABSOLUTE 8.7 10*3/uL High 1.8-7.5 [facility] Comment on above: Performed By: #### L [id number] ####Textile Engineer: MARY SOTELO ([id number])[facility] ([facility])[address] [place] [address] Neutrophils/100 WBC (Bld) 84.1 % High 38.0-82.0 [facility] Comment on above: Performed By: #### L [id number] ####Textile Engineer: MARY SOTELO ([id number])[facility])[address] [place] [address] NRBC 0.0 /100 WBCs Normal 0.0-2.0 [facility] Comment on above: Performed By: #### L [id number] ####Textile Engineer: MARY SOTELO ([id number])[facility] ([facility])[address] [place] [address] Platelet mean volume (Bld) [Entitic vol] 11.0 fL Normal 9.0-12.7 [facility] Comment on above: Performed By: #### L [id number] ####Textile Engineer: MARY SOTELO ([id number])[facility] ([facility])[address] [place] [address] Platelets (Bld) [#/Vol] 156 10*3/uL Normal 140-440 [facility] Comment on above: Performed By: #### L [id number] ####Textile Engineer: MARY SOTELO ([id number])[facility] ([facility])[address] [place] [address] RBC (Bld) [#/Vol] 2.94 10*6/uL Low 3.80-5.20 [facility] Comment on above: Performed By: #### L [id number] ####Textile Engineer: MARY SOTELO ([id number])[facility] ([facility])[address] [place] [address] WBC (Bld) [#/Vol] 10.4 10*3/uL Normal 3.6-10.7 [facility] Comment on above: Performed By: #### L [id number] ####Textile Engineer: MARY SOTELO ([id number])[facility] ([facility])[address] [place] [address] Calcium.ionized [Moles/Vol]o n 08-01-2024 Calcium.ionized (Bld) [Moles/Vol] 4.10 mg/dL Low 4.30 - 5.20 mg/dL [facility] Interpretation and review of laboratory results Abnormal [facility] PH, IONIZED CALCIUM 7.38 7.31 - 7.46 [facility] Calcium.ionized (Bld) [Moles/Vol] 4.30 mg/dL 4.30 - 5.20 mg/dL [facility] Interpretation and review of laboratory results Normal [facility] PH, IONIZED CALCIUM 7.32 7.31 - 7.46 [facility] Calcium.ionized (Bld) [Moles/Vol] 4.50 mg/dL 4.30 - 5.20 mg/dL [facility] Interpretation and review of laboratory results Normal [facility] PH, IONIZED CALCIUM 7.31 7.31 - 7.46 [facility] IDNon 08-01-2024 IDN Normal [facility] - Chemistry and C hemistry - challengeon 08-01-2024 Glucose [Mass/Vol] 192 mg/dL High 70 - 100 mg/dL [facility] Glucose [Mass/Vol] 170 mg/dL High 70 - 100 mg/dL [facility] Glucose [Mass/Vol] 166 mg/dL High 70 - 100 mg/dL [facility] Glucose [Mass/Vol] 120 mg/dL High 70 - 100 mg/dL [facility] Glucose [Mass/Vol] 161 mg/dL High 70 - 100 mg/dL [facility] No Panel Informationon 08-01 Interpretation and review of laboratory results Abnormal [facility] Interpretation and review of laboratory results Abnormal [facility] Interpretation and review of laboratory results Abnormal [facility] Interpretation and review of laboratory results Abnormal [facility] Interpretation and review of laboratory results Abnormal [facility] Progress Noteon 08-01-2024 Progress Note [facility] Progress Note Normal [facility] Progress Note [facility] RENAL FUNCTION PANELon 08-01 Albumin [Mass/Vol] 2.1 g/dL Low 3.5-5.0 [facility] Comment on above: Performed By: #### L [id number] ####Textile Engineer: MARY SOTELO ([id number])[facility] ([facility])[address] [place] [address] Anion gap [Moles/Vol] 3 mmol/L Normal 3-[address] [facility] Comment on above: Performed By: #### L [id number] ####Textile Engineer: MARY SOTELO ([id number])[facility] [place] [address] Calcium [Mass/Vol] 7.2 mg/dL Low 8.4-10.4 [facility] Comment on above: Performed By: #### L [id number] ####Textile Engineer: MARY SOTELO ([id number])[facility] [place] [address] Chloride [Moles/Vol] 106 mmol/L Normal 98-107 [facility] Comment on above: Performed By: #### L [id number] ####Textile Engineer: MARY SOTELO ([id number])[facility] [place] [address] CO2 [Moles/Vol] 23 mmol/L Normal 22-30 [facility] Comment on above: Performed By: #### L [id number] ####Textile Engineer: MARY SOTELO ([id number])[facility] ([facility])[address] [place] [address] Creatinine [Mass/Vol] 0.87 mg/dL Normal 0.52-1.[address] [facility] Comment on above: Performed By: #### L [id number] ####Textile Engineer: MARY SOTELO ([id number])[facility] ([facility])[address] [place] [address] GLOMERULAR FILTRATION RATE ML/MIN/1.73 SQ M.PREDICTED 74.5 mL/min/1.73m*2 Normal >60.0 [facility] Comment on above: Result Comment: Calc ulation based on the Chronic Kidney Disease Epidemiology Collaboration (CKD-EPI) equation refit without adjustment for race Performed By: #### L [id number] ####Textile Engineer: MARY SOTELO ([id number])[facility] [place] [address] [place] Glucose [Mass/Vol] 170 mg/dL High 70-100 [facility] Comment on above: Performed By: #### L [id number] ####Textile Engineer: MARY SOTELO ([id number])[facility] ([facility])[address] [place] [address] Phosphate [Mass/Vol] 2.3 mg/dL Low 2.5-4.5 [facility] Comment on above: Performed By: #### L AB19 ####Textile Engineer: MARY SOTELO ([id number])[facility])[address] [place] [address] Potassium [Moles/Vol] 4.1 mmol/L Normal 3.5-5.[address] [facility] Comment on above: Performed By: #### L [id number] ####Textile Engineer: MARY SOTELO ([phone])[facility] ([facility])[address] [place] [address] Sodium [Moles/Vol] 132 mmol/L Low 135-145 [facility] Comment on above: Performed By: #### L [id number] ####Textile Engineer: MARY SOTELO ([id number])[facility] ([facility])[address] [place] [address] Urea nitrogen [Mass/Vol] 13 mg/dL Normal 7-17 [facility] Comment on above: Performed By: #### L [id number] ####Textile Engineer: MARY SOTELO ([id number])[facility] ([facility])[address] [place] [address] Albumin [Mass/Vol] 2.0 g/dL Low 3.5-5.0 [facility] Comment on above: Performed By: #### L [id number] ####Textile Engineer: MARY SOTELO ([id number])[facility] ([facility])[address] [place] [address] [place] Anion gap [Moles/Vol] 2 mmol/L Low 3-13 [facility] Comment on above: Performed By: #### L AB19 ####Textile Engineer: MARY SOTELO ([id number])[facility])[address] [place] [address] [place] Calcium [Mass/Vol] 7.4 mg/dL Low 8.4-10.4 [facility] Comment on above: Performed By: #### L [id number] ####Textile Engineer: MARY SOTELO ([id number])[facility])[address] [place] [address] [place] Chloride [Moles/Vol] 106 mmol/L Normal 98-107 [facility] Comment on above: Performed By: #### L AB19 ####Textile Engineer: MARY SOTELO ([id number])[facility] ([facility])[address] [place] [address] CO2 [Moles/Vol] 24 mmol/L Normal 22-30 [facility] Comment on above: Performed By: #### L AB19 ####Textile Engineer: MARY SOTELO ([id number])[facility] ([facility])[address] [place] [address] Creatinine [Mass/Vol] 0.90 mg/dL Normal 0.52-1.[address] [facility] Comment on above: Performed By: #### L [id number] ####Textile Engineer: MARY SOTELO ([id number])[facility] ([facility])[address] [place] [address] GLOMERULAR FILTRATION RATE ML/MIN/1.73 SQ M.PREDICTED 71.5 mL/min/1.73m*2 Normal >60.0 [facility] Comment on above: Result Comment: Calc ulation based on the Chronic Kidney Disease Epidemiology Collaboration (CKD-EPI) equation refit without adjustment for race Performed By: #### L AB19 ####Textile Engineer: MARY SOTELO ([id number])[facility] [place] [address] [place] Glucose [Mass/Vol] 119 mg/dL High 70-100 [facility] Comment on above: Performed By: #### L [id number] ####Textile Engineer: MARY SOTELO ([id number])[facility] ([facility])[address] [place] [address] Phosphate [Mass/Vol] 2.6 mg/dL Normal 2.5-4.5 [facility] Comment on above: Performed By: #### L [id number] ####Textile Engineer: MARY [id number])[facility] ([facility])[address] [place] [address] Potassium [Moles/Vol] 4.0 mmol/L Normal 3.5-5.1 [facility] Comment on above: Performed By: #### L AB19 ####Textile Engineer: MARY SOTELO ([phone])[facility])[address] [place] [address] Sodium [Moles/Vol] 133 mmol/L Low 135-145 [facility] Comment on above: Performed By: #### L [id number] ####Textile Engineer: MARY SOTELO ([id number])[facility] ([facility])[address] [place] [address] Urea nitrogen [Mass/Vol] 14 mg/dL Normal 7-17 [facility] Comment on above: Performed By: #### L AB19 ####Textile Engineer: MARY SOTELO ([id number])[facility] ([facility])[address] [place] [address] Albumin [Mass/Vol] 2.1 g/dL Low 3.5-5.0 [facility] Comment on above: Performed By: #### L AB19 ####Textile Engineer: MARY SOTELO ([id number])[facility] ([facility])[address] [place] [address] Anion gap [Moles/Vol] 3 mmol/L Normal 3-13 [facility] Comment on above: Performed By: #### L AB19 ####Textile Engineer: MARY SOTELO ([phone])[facility])[address] [place] [address] Calcium [Mass/Vol] 7.8 mg/dL Low 8.4-10.4 [facility] Comment on above: Performed By: #### L AB19 ####Textile Engineer: MARY SOTELO ([id number])[facility])[address] [place] [address] Chloride [Moles/Vol] 105 mmol/L Normal 98-107 [facility] Comment on above: Performed By: #### L AB19 ####Textile Engineer: MARY SOTELO ([id number])[facility] ([facility])[address] [place] [address] [place] CO2 [Moles/Vol] 25 mmol/L Normal 22-30 [facility] Comment on above: Performed By: #### L AB19 ####Textile Engineer: MARY SOTELO ([id number])[facility] ([facility])[address] [place] [address] Creatinine [Mass/Vol] 0.85 mg/dL Normal 0.52-1.[address] [facility] Comment on above: Performed By: #### L [id number] ####Textile Engineer: MARY SOTELO ([id number])[facility] ([facility])[address] [place] [address] GLOMERULAR FILTRATION RATE ML/MIN/1.73 SQ M.PREDICTED 76.6 mL/min/1.73m*2 Normal >60.0 [facility] Comment on above: Result Comment: Calc ulation based on the Chronic Kidney Disease Epidemiology Collaboration (CKD-EPI) equation refit without adjustment for race Performed By: #### L [id number] ####Textile Engineer: MARY SOTELO ([id number])[facility] ([facility])[address] [place] [address] [place] Glucose [Mass/Vol] 161 mg/dL High 70-100 [facility] Comment on above: Performed By: #### L [id number] ####Textile Engineer: MARY SOTELO ([phone])[facility] ([facility])[address] [place] [address] [place] Phosphate [Mass/Vol] 3.0 mg/dL Normal 2.5-4.5 [facility] Comment on above: Performed By: #### L [id number] ####Textile Engineer: MARY SOTELO ([phone])[facility])[address] [place] [address] Potassium [Moles/Vol] 4.2 mmol/L Normal 3.5-5.[address] [facility] Comment on above: Performed By: #### L [id number] ####Textile Engineer: MARY SOTELO ([phone])[facility] [place] [address] Sodium [Moles/Vol] 133 mmol/L Low 135-145 [facility] Comment on above: Performed By: #### L [id number] ####Textile Engineer: MARY SOTELO ([id number])[facility] ([facility])[address] [place] [address] Urea nitrogen [Mass/Vol] 15 mg/dL Normal 7-17 [facility] Comment on above: Performed By: #### L [id number] ####Textile Engineer: MARY SOTELO ([phone])[facility] [place] [address] Renal function 2000 panelon 08-01-2024 Albumin [Mass/Vol] 2.1 g/dL Low 3.5 - 5.0 g/dL [facility] Anion gap [Moles/Vol] 3 mmol/L 3 - 13 mmol/L [facility] Calcium [Mass/Vol] 7.2 mg/dL Low 8.4 - 10. 4 mg/dL [facility] Chloride [Moles/Vol] 106 mmol/L 98 - 10 7 mmol/L [facility] CO2 [Moles/Vol] 23 mmol/L 22 - 30 mmol/L [facility] Creatinine [Mass/Vol] 0.87 mg/dL 0.52 - 1.04 mg/dL [facility] GFR/1.73 sq M.predicted (S/P/Bld) [Vol rate/Area] 74.5 mL/min - PINF [facility] Glucose [Mass/Vol] 170 mg/dL High 70 - 100 mg/dL [facility] Interpretation and review of laboratory results Abnormal [facility] Phosphate [Mass/Vol] 2.3 mg/dL Low 2.5 - 4 .5 mg/dL [facility] Potassium [Moles/Vol] 4.1 mmol/L 3.5 - 5.1 mmol/L [facility] Sodium [Moles/Vol] 132 mmol/L Low 135 - 145 mmol/L [facility] Urea nitrogen [Mass/Vol] 13 mg/dL 7 - 17 mg/dL [facility] Albumin [Mass/Vol] 2.0 g/dL Low 3.5 - 5.0 g/dL [facility] Anion gap [Moles/Vol] 2 mmol/L Low 3 - 13 mmol/L [facility] Calcium [Mass/Vol] 7.4 mg/dL Low 8.4 - 10. 4 mg/dL [facility] Chloride [Moles/Vol] 106 mmol/L 98 - 10 7 mmol/L [facility] CO2 [Moles/Vol] 24 mmol/L 22 - 30 mmol/L [facility] Creatinine [Mass/Vol] 0.90 mg/dL 0.52 - 1.04 mg/dL [facility] GFR/1.73 sq M.predicted (S/P/Bld) [Vol rate/Area] 71.5 mL/min - PINF [facility] Glucose [Mass/Vol] 119 mg/dL High 70 - 100 mg/dL [facility] Interpretation and review of laboratory results Abnormal [facility] Phosphate [Mass/Vol] 2.6 mg/dL 2.5 - 4 .5 mg/dL [facility] Potassium [Moles/Vol] 4.0 mmol/L 3.5 - 5.1 mmol/L [facility] Sodium [Moles/Vol] 133 mmol/L Low 135 - 145 mmol/L [facility] Urea nitrogen [Mass/Vol] 14 mg/dL 7 - 17 mg/dL [facility] Albumin [Mass/Vol] 2.1 g/dL Low 3.5 - 5.0 g/dL [facility] Anion gap [Moles/Vol] 3 mmol/L 3 - 13 mmol/L [facility] Calcium [Mass/Vol] 7.8 mg/dL Low 8.4 - 10. 4 mg/dL [facility] Chloride [Moles/Vol] 105 mmol/L 98 - 10 7 mmol/L [facility] CO2 [Moles/Vol] 25 mmol/L 22 - 30 mmol/L [facility] Creatinine [Mass/Vol] 0.85 mg/dL 0.52 - 1.04 mg/dL [facility] GFR/1.73 sq M.predicted (S/P/Bld) [Vol rate/Area] 76.6 mL/min - PINF [facility] Glucose [Mass/Vol] 161 mg/dL High 70 - 100 mg/dL [facility] Interpretation and review of laboratory results Abnormal [facility] Phosphate [Mass/Vol] 3.0 mg/dL 2.5 - 4 .5 mg/dL [facility] Potassium [Moles/Vol] 4.2 mmol/L 3.5 - 5.1 mmol/L [facility] Sodium [Moles/Vol] 133 mmol/L Low 135 - 145 mmol/L [facility] Urea nitrogen [Mass/Vol] 15 mg/dL 7 - 17 mg/dL [facility] ABO and Rh group Confirm Nom (Bld)on 07-31-2024 ABO group Nom (Bld) O [facility] D Ag Ql (RBC) Positive [facility] BLOOD GAS ARTERIALon 024 Base excess Calc (Bld) [Moles/Vol] -0.9000 mmol/L Normal -3.0-3.0 [facility] Comment on above: Performed By: #### L [id number] ####Textile Engineer: MARY SOTELO ([id number])[facility] ([facility])[address] [place] [address] CO2 [Moles/Vol] 26.4 mmol/L Normal 23.0-27.0 [facility] Comment on above: Performed By: #### L AB76 ####Textile Engineer: MARY SOTELO ([id number])[facility] ([facility])[address] [place] [address] HCO3 (Bld) [Moles/Vol] 25.0 mmol/L Normal 21.0-25.0 [facility] Comment on above: Performed By: #### L AB76 ####Textile Engineer: MARY SOTELO ([id number])[facility] ([facility])[address] [place] [address] Hemoglobin (Bld) [Mass/Vol] 7.1 g/dL Normal Screen only [facility] Comment on above: Performed By: #### L AB76 ####Textile Engineer: MARY [id number])[facility])[address] [place] [address] OXYGEN SATURATION (%) IN ARTERIAL BLOOD 98.0 % Normal 95.0-100.0 [facility] Comment on above: Performed By: #### L AB76 ####Textile Engineer: MARY [id number])[facility] ([facility])[address] [place] [address] PCO2 ARTERIAL 47.9 mm Hg High >35.0-[facility] Comment on above: Performed By: #### L AB76 ####Textile Engineer: MARY SOTELO ([phone])[facility])[address] [place] [address] PH ARTERIAL 7.335 Low 7.350-7.450 [facility] Comment on above: Performed By: #### L AB76 ####Textile Engineer: MARY SOTELO ([id number])[facility])[address] [place] [address] PO2 ARTERIAL 143.8 mm Hg High 80.0-100.0 [facility] Comment on above: Performed By: #### L AB76 ####Textile Engineer: MARY SOTELO ([id number])[facility])[address] [place] [address] SOURCE OF OXYGEN Nasal cannula Normal [facility] Comment on above: Performed By: #### L AB76 ####Textile Engineer: MARY SOTELO ([phone])[facility])[address] [place] [address] BLOOD TYPE AND SCREEN GELon 07-31-2024 ABO GROUPING O Normal [facility] Comment on above: Performed By: #### L [id number] ####Textile Engineer: MARY SOTELO ([id number])[facility] ([facility])[address] [place] [address] RH TYPE IN BLOOD Positive Normal [facility] Comment on above: Performed By: #### L [id number] ####Textile Engineer: MARY SOTELO ([id number])[facility] ([facility])[address] [place] [address] Blood type and Crossmatch pa eunice (Bld)on 07-31-2024 ABO group Nom (Bld) O [facility] Blood group antibody screen GEL Ql Negative [facility] D Ag Ql (RBC) Positive [facility] CALCIUM, IONIZEDon 4 CALCIUM IONIZED 4.70 mg/dL Normal 4.30-5.[facility] Comment on above: Performed By: #### L AB54 ####Textile Engineer: MARY SOTELO ([id number])[facility] ([facility])[address] [place] [address] [place] PH, IONIZED CALCIUM 7.31 Normal 7.31-7.46 [facility] Comment on above: Performed By: #### L AB54 ####Textile Engineer: MARY SOTELO ([id number])[facility] ([facility])[address] [place] [address] [place] CALCIUM IONIZED 4.80 mg/dL Normal 4.30-5.20 [facility] Comment on above: Performed By: #### L AB54 ####Textile Engineer: MARY SOTELO ([id number])[facility] ([facility])[address] [place] [address] [place] PH, IONIZED CALCIUM 7.36 Normal 7.31-7.46 [facility] Comment on above: Performed By: #### L AB54 ####Textile Engineer: MARY SOTELO ([id number])[facility] ([facility])[address] [place] [address] [place] CALCIUM IONIZED 4.90 mg/dL Normal 4.30-5.20 [facility] Comment on above: Performed By: #### L AB54 ####Textile Engineer: MARY SOTELO ([id number])[facility] ([facility])[address] [place] [address] [place] PH, IONIZED CALCIUM 7.35 Normal 7.31-7.46 [facility] Comment on above: Performed By: #### L AB54 ####Textile Engineer: MARY SOTELO ([id number])[facility])[address] [place] [address] [place] CALCIUM IONIZED 4.80 mg/dL Normal 4.30-5.20 [facility] Comment on above: Performed By: #### L AB54 ####Textile Engineer: MARY SOTELO ([phone])[facility])[address] [place] [address] PH, IONIZED CALCIUM 7.38 Normal 7.31-7.46 [facility] Comment on above: Performed By: #### L AB54 ####Textile Engineer: MARY SOTELO ([phone])[facility])[address] [place] [address] CBC (HEMOGRAM)on 07-31-2024 Erythrocyte distribution width (RBC) [Ratio] 15.2 % High 11.5-15.0 [facility] Comment on above: Performed By: #### L [id number] ####Textile Engineer: MARY SOTELO ([id number])[address] Hematocrit (Bld) [Volume fraction] 21.6 % Low 35.0-47.0 [facility] Comment on above: Performed By: #### L [id number] ####Textile Engineer: MARY SOTELO ([id number])[address] Hemoglobin (Bld) [Mass/Vol] 6.8 g/dL Critically low 11.7-16.0 [facility] Comment on above: Performed By: #### L [id number] ####Textile Engineer: MARY SOTELO ([id number])[facility])[address] [place] [address] MCH (RBC) [Entitic mass] 28.7 pg Normal 26.0-34.0 [facility] Comment on above: Performed By: #### L [id number] ####Textile Engineer: MARY SOTELO ([id number])[address] MCHC 31.5 % Normal 30.5-36.0 [facility] Comment on above: Performed By: #### L [id number] ####Textile Engineer: MARY SOTELO ([id number])[facility] ([address] MCV (RBC) [Entitic vol] 91.1 fL Normal 77.0-99.0 [facility] Comment on above: Performed By: #### L [id number] ####Textile Engineer: MARY SOTELO ([id number])[facility] ([facility])[address] [place] [address] Platelet mean volume (Bld) [Entitic vol] 10.9 fL Normal 9.0-12.7 [facility] Comment on above: Performed By: #### L [id number] ####Textile Engineer: MARY SOTELO ([id number])[facility] ([facility])[address] [place] [address] Platelets (Bld) [#/Vol] 158 10*3/uL Normal 140-440 [facility] Comment on above: Performed By: #### L [id number] ####Textile Engineer: MARY SOTELO ([id number])[facility] ([facility])[address] [place] [address] RBC (Bld) [#/Vol] 2.37 10*6/uL Low 3.80-5.20 [facility] Comment on above: Performed By: #### L [id number] ####Textile Engineer: MARY SOTELO ([id number])[facility] ([facility])[address] [place] [address] WBC (Bld) [#/Vol] 15.0 10*3/uL High 3.6-10.7 [facility] Comment on above: Performed By: #### L [id number] ####Textile Engineer: MARY SOTELO ([id number])[facility] ([facility])[address] [place] [address] CBC W Auto Differential pane l (Bld)on 07-31-2024 Basophils (Bld) [#/Vol] 0.0 10*3/uL 0.0 - 0.2 10*3/uL [facility] Basophils/100 WBC (Bld) 0.1 % 0.0 - 2.0 % [facility] Eosinophils (Bld) [#/Vol] 0.0 10*3/uL 0.0 - 0.5 10*3/uL [facility] Eosinophils/100 WBC (Bld) 0.2 % 0.0 - 6.0 % [facility] Erythrocyte distribution width (RBC) [Ratio] 15.2 % High 11.5 - 15.0 % [facility] Hematocrit (Bld) [Volume fraction] 22.3 % Low 35.0 - 47.0 % [facility] Hemoglobin (Bld) [Mass/Vol] 7.1 g/dL Low 11.7 - 16.0 g/dL [facility] Immature granulocytes (Bld) [#/Vol] 0.0 10*3/uL NINF - 0.1 10*3/uL [facility] Immature granulocytes/100 WBC (Bld) 0.3 % 0.0 - 2.0 % [facility] Interpretation and review of laboratory results Abnormal [facility] Lymphocytes (Bld) [#/Vol] 0.6 10*3/uL Low 1.0 - 4.3 10*3/uL [facility] Lymphocytes/100 WBC (Bld) 4.7 % Low 15.0 - 45.0 % [facility] MCH (RBC) [Entitic mass] 29.6 pg 26.0 - 34.0 pg [facility] MCHC (RBC) [Mass/Vol] 31.8 % 30.5 - 36.0 % [facility] MCV (RBC) [Entitic vol] 92.9 fL 77.0 - 99.0 fL [facility] Monocytes (Bld) [#/Vol] 0.6 10*3/uL 0.0 - 0.9 10*3/uL [facility] Monocytes/100 WBC (Bld) 4.4 % Low 5.0 - 13.0 % [facility] Neutrophils (Bld) [#/Vol] 12.0 10*3/uL High 1.8 - 7.5 10*3/uL [facility] Neutrophils/100 WBC (Bld) 90.3 % High 38.0 - 82.0 % [facility] Nucleated RBC/100 WBC (Bld) [Ratio] 0.0 % [facility] Platelet mean volume (Bld) [Entitic vol] 10.7 fL 9.0 - 12.7 fL [facility] Platelets (Bld) [#/Vol] 146 10*3/uL 140 - 440 10*3/uL [facility] RBC (Bld) [#/Vol] 2.40 10*6/uL Low 3.80 - 5.2 0 10*6/uL [facility] WBC (Bld) [#/Vol] 13.3 10*3/uL High 3.6 - 10.7 10*3/uL [facility] CBC W Auto Differential pane l (Bld)Ordered By: Olamide Orozco on 07-31-2024 Basophils (Bld) [#/Vol] 0.0 10*3/uL 0.0 - 0.2 10*3/uL [facility] Basophils/100 WBC (Bld) 0.1 % 0.0 - 2.0 % [facility] Eosinophils (Bld) [#/Vol] 0.0 10*3/uL 0.0 - 0.5 10*3/uL [facility] Eosinophils/100 WBC (Bld) 0.2 % 0.0 - 6.0 % [facility] Erythrocyte distribution width (RBC) [Ratio] 15.1 % High 11.5 - 15.0 % [facility] Hematocrit (Bld) [Volume fraction] 22.9 % Low 35.0 - 47.0 % [facility] Hemoglobin (Bld) [Mass/Vol] 7.2 g/dL Low 11.7 - 16.0 g/dL [facility] Immature granulocytes (Bld) [#/Vol] 0.1 10*3/uL High NINF - 0.1 10*3/uL [facility] Immature granulocytes/100 WBC (Bld) 0.4 % 0.0 - 2.0 % [facility] Interpretation and review of laboratory results Abnormal [facility] Lymphocytes (Bld) [#/Vol] 0.5 10*3/uL Low 1.0 - 4.3 10*3/uL [facility] Lymphocytes/100 WBC (Bld) 3.6 % Low 15.0 - 45.0 % [facility] MCH (RBC) [Entitic mass] 28.9 pg 26.0 - 34.0 pg [facility] MCHC (RBC) [Mass/Vol] 31.4 % 30.5 - 36.0 % [facility] MCV (RBC) [Entitic vol] 92.0 fL 77.0 - 99.0 fL [facility] Monocytes (Bld) [#/Vol] 0.3 10*3/uL 0.0 - 0.9 10*3/uL [facility] Monocytes/100 WBC (Bld) 2.0 % Low 5.0 - 13.0 % [facility] Neutrophils (Bld) [#/Vol] 13.2 10*3/uL High 1.8 - 7.5 10*3/uL [facility] Neutrophils/100 WBC (Bld) 93.7 % High 38.0 - 82.0 % [facility] Nucleated RBC/100 WBC (Bld) [Ratio] 0.0 % [facility] Platelet mean volume (Bld) [Entitic vol] 10.5 fL 9.0 - 12.7 fL [facility] Platelets (Bld) [#/Vol] 135 10*3/uL Low 140 - 440 10*3/uL [facility] RBC (Bld) [#/Vol] 2.49 10*6/uL Low 3.80 - 5.2 0 10*6/uL [facility] WBC (Bld) [#/Vol] 14.0 10*3/uL High 3.6 - 10.7 10*3/uL [facility] CBC WITH AUTO DIFFERENTIALon 07-31-2024 Basophils (Bld) [#/Vol] 0.0 10*3/uL Normal 0.0-0.2 [facility] Comment on above: Performed By: #### L [id number] ####Textile Engineer: MARY [id number])[address] Basophils/100 WBC (Bld) 0.1 % Normal 0.0-2.0 [facility] Comment on above: Performed By: #### L [id number] ####Textile Engineer: MARY [id number])[address] Eosinophils (Bld) [#/Vol] 0.0 10*3/uL Normal 0.0-0.5 [facility] Comment on above: Performed By: #### L [id number] ####Textile Engineer: MARY [id number])[facility])[address] [place] [address] Eosinophils/100 WBC (Bld) 0.2 % Normal 0.0-6.0 [facility] Comment on above: Performed By: #### L [id number] ####Textile Engineer: MARY SOTELO ([id number])[facility])[address] [place] [address] Erythrocyte distribution width (RBC) [Ratio] 15.2 % High 11.5-15.0 [facility] Comment on above: Performed By: #### L [id number] ####Textile Engineer: MARY SOTELO ([id number])[facility])[address] [place] [address] Hematocrit (Bld) [Volume fraction] 22.3 % Low 35.0-47.0 [facility] Comment on above: Performed By: #### L [id number] ####Textile Engineer: MARY SOTELO ([id number])[facility])[address] [place] [address] Hemoglobin (Bld) [Mass/Vol] 7.1 g/dL Low 11.7-16.0 [facility] Comment on above: Performed By: #### L [id number] ####Textile Engineer: MARY SOTELO ([phone])[facility])[address] [place] [address] IMMATURE GRANS % 0.3 % Normal 0.0-2.0 [facility] Comment on above: Performed By: #### L [id number] ####Textile Engineer: MARY SOTELO ([phone])[facility])[address] [place] [address] IMMATURE GRANS ABSOLUTE 0.0 10*3/uL Normal <0.1 [facility] Comment on above: Performed By: #### L [id number] ####Textile Engineer: MARY SOTELO ([phone])[facility])[address] [place] [address] Lymphocytes (Bld) [#/Vol] 0.6 10*3/uL Low 1.0-4.3 [facility] Comment on above: Performed By: #### L [id number] ####Textile Engineer: MARY SOTELO ([phone])[facility])[address] [place] [address] Lymphocytes/100 WBC (Bld) 4.7 % Low 15.0-45.0 [facility] Comment on above: Performed By: #### L [id number] ####Textile Engineer: MARY SOTELO ([phone])[facility])[address] [place] [address] MCH (RBC) [Entitic mass] 29.6 pg Normal 26.0-34.0 [facility] Comment on above: Performed By: #### L [id number] ####Textile Engineer: MARY SOTELO ([phone])[facility])[address] [place] [address] MCHC 31.8 % Normal 30.5-36.0 [facility] Comment on above: Performed By: #### L [id number] ####Textile Engineer: MARY SOTELO ([phone])[facility])[address] [place] [address] MCV (RBC) [Entitic vol] 92.9 fL Normal 77.0-99.0 [facility] Comment on above: Performed By: #### L [id number] ####Textile Engineer: MARY SOTELO ([phone])[facility])[address] [place] [address] Monocytes (Bld) [#/Vol] 0.6 10*3/uL Normal 0.0-0.9 [facility] Comment on above: Performed By: #### L [id number] ####Textile Engineer: MARY SOTELO ([phone])[facility])[address] [place] [address] Monocytes/100 WBC (Bld) 4.4 % Low 5.0-13.0 [facility] Comment on above: Performed By: #### L [id number] ####Textile Engineer: MARY SOTELO ([phone])[facility] ([facility])[address] [place] [address] NEUTROPHILS ABSOLUTE 12.0 10*3/uL High 1.8-7.5 [facility] Comment on above: Performed By: #### L [id number] ####Textile Engineer: MARY SOTELO ([id number])[facility] ([facility])[address] [place] [address] Neutrophils/100 WBC (Bld) 90.3 % High 38.0-82.0 [facility] Comment on above: Performed By: #### L [id number] ####Textile Engineer: MARY SOTELO ([phone])[facility])[address] [place] [address] NRBC 0.0 /100 WBCs Normal 0.0-2.0 [facility] Comment on above: Performed By: #### L [id number] ####Textile Engineer: MARY SOTELO ([id number])[facility] ([facility])[address] [place] [address] Platelet mean volume (Bld) [Entitic vol] 10.7 fL Normal 9.0-12.7 [facility] Comment on above: Performed By: #### L [id number] ####Textile Engineer: MARY SOTELO ([phone])[facility])[address] [place] [address] Platelets (Bld) [#/Vol] 146 10*3/uL Normal 140-440 [facility] Comment on above: Performed By: #### L [id number] ####Textile Engineer: MARY SOTELO ([id number])[facility])[address] [place] [address] RBC (Bld) [#/Vol] 2.40 10*6/uL Low 3.80-5.20 [facility] Comment on above: Performed By: #### L [id number] ####Textile Engineer: MARY SOTELO ([phone])[facility])[address] [place] [address] WBC (Bld) [#/Vol] 13.3 10*3/uL High 3.6-10.7 [facility] Comment on above: Performed By: #### L [id number] ####Textile Engineer: MARY SOTELO ([phone])[facility])[address] [place] [address] Basophils (Bld) [#/Vol] 0.0 10*3/uL Normal 0.0-0.2 [facility] Comment on above: Performed By: #### L [id number] ####Textile Engineer: MARY SOTELO ([phone])[facility])[address] [place] [address] Basophils/100 WBC (Bld) 0.1 % Normal 0.0-2.0 [facility] Comment on above: Performed By: #### L [id number] ####Textile Engineer: MARY SOTELO ([phone])[facility])[address] [place] [address] Eosinophils (Bld) [#/Vol] 0.0 10*3/uL Normal 0.0-0.5 [facility] Comment on above: Performed By: #### L [id number] ####Textile Engineer: MARY SOTELO ([phone])[facility] [facility] [place] [address] Eosinophils/100 WBC (Bld) 0.2 % Normal 0.0-6.0 [facility] Comment on above: Performed By: #### L [id number] ####Textile Engineer: MARY SOTELO ([phone])[facility])[address] [place] [address] Erythrocyte distribution width (RBC) [Ratio] 15.1 % High 11.5-15.0 [facility] Comment on above: Performed By: #### L [id number] ####Textile Engineer: MARY SOTELO ([phone])[facility])[address] [place] [address] Hematocrit (Bld) [Volume fraction] 22.9 % Low 35.0-47.0 [facility] Comment on above: Performed By: #### L [id number] ####Textile Engineer: MARY SOTELO ([phone])[facility])[address] [place] [address] Hemoglobin (Bld) [Mass/Vol] 7.2 g/dL Low 11.7-16.0 [facility] Comment on above: Performed By: #### L [id number] ####Textile Engineer: MARY SOTELO ([phone])[facility])[address] [place] [address] IMMATURE GRANS % 0.4 % Normal 0.0-2.0 [facility] Comment on above: Performed By: #### L [id number] ####Textile Engineer: MARY SOTELO ([phone])[facility])[address] [place] [address] IMMATURE GRANS ABSOLUTE 0.1 10*3/uL High <0.1 [facility] Comment on above: Performed By: #### L [id number] ####Textile Engineer: MARY SOTELO ([phone])[facility])[address] [place] [address] Lymphocytes (Bld) [#/Vol] 0.5 10*3/uL Low 1.0-4.3 [facility] Comment on above: Performed By: #### L [id number] ####Textile Engineer: MARY SOTELO ([phone])[facility])[address] [place] [address] Lymphocytes/100 WBC (Bld) 3.6 % Low 15.0-45.0 [facility] Comment on above: Performed By: #### L [id number] ####Textile Engineer: MARY SOTELO ([phone])[facility])[address] [place] [address] MCH (RBC) [Entitic mass] 28.9 pg Normal 26.0-34.0 [facility] Comment on above: Performed By: #### L [id number] ####Textile Engineer: MARY SOTELO ([phone])[facility])[address] [place] [address] MCHC 31.4 % Normal 30.5-36.0 [facility] Comment on above: Performed By: #### L [id number] ####Textile Engineer: MARY SOTELO ([phone])[facility])[address] [place] [address] MCV (RBC) [Entitic vol] 92.0 fL Normal 77.0-99.0 [facility] Comment on above: Performed By: #### L [id number] ####Textile Engineer: MARY SOTELO ([phone])[address] Monocytes (Bld) [#/Vol] 0.3 10*3/uL Normal 0.0-0.9 [facility] Comment on above: Performed By: #### L [id number] ####Textile Engineer: MARY SOTELO ([phone])[facility])[address] [place] [address] Monocytes/100 WBC (Bld) 2.0 % Low 5.0-13.0 [facility] Comment on above: Performed By: #### L [id number] ####Textile Engineer: MARY SOTELO ([phone])[facility])[address] [place] [address] NEUTROPHILS ABSOLUTE 13.2 10*3/uL High 1.8-7.5 [facility] Comment on above: Performed By: #### L [id number] ####Textile Engineer: MARY SOTELO ([phone])[facility])[address] [place] [address] Neutrophils/100 WBC (Bld) 93.7 % High 38.0-82.0 [facility] Comment on above: Performed By: #### L [id number] ####Textile Engineer: MARY [id number])[facility])[address] [place] [address] NRBC 0.0 /100 WBCs Normal 0.0-2.0 [facility] Comment on above: Performed By: #### L [id number] ####Textile Engineer: MARY SOTELO ([phone])[facility])[address] [place] [address] Platelet mean volume (Bld) [Entitic vol] 10.5 fL Normal 9.0-12.7 [facility] Comment on above: Performed By: #### L [id number] ####Textile Engineer: MARY SOTELO ([phone])[facility])[address] [place] [address] Platelets (Bld) [#/Vol] 135 10*3/uL Low 140-440 [facility] Comment on above: Performed By: #### L [id number] ####Textile Engineer: MARY SOTELO ([phone])[facility])[address] [place] [address] RBC (Bld) [#/Vol] 2.49 10*6/uL Low 3.80-5.20 [facility] Comment on above: Performed By: #### L [id number] ####Textile Engineer: MARY SOTELO ([phone])[facility])[address] [place] [address] WBC (Bld) [#/Vol] 14.0 10*3/uL High 3.6-10.7 [facility] Comment on above: Performed By: #### L [id number] ####Textile Engineer: MARY SOTELO ([phone])[facility])[address] [place] [address] CBC panel Auto (Bld)Ordered By: Akbar Warner on 07-31-2024 Erythrocyte distribution width (RBC) [Ratio] 15.2 % High 11.5 - 15.0 % [facility] Hematocrit (Bld) [Volume fraction] 21.6 % Low 35.0 - 47.0 % [facility] Hemoglobin (Bld) [Mass/Vol] 6.8 g/dL Critically low 11.7 - 16.0 g/dL [facility] Interpretation and review of laboratory results Abnormal [facility] MCH (RBC) [Entitic mass] 28.7 pg 26.0 - 34.0 pg [facility] MCHC (RBC) [Mass/Vol] 31.5 % 30.5 - 36.0 % [facility] MCV (RBC) [Entitic vol] 91.1 fL 77.0 - 99.0 fL [facility] Platelet mean volume (Bld) [Entitic vol] 10.9 fL 9.0 - 12.7 fL [facility] Platelets (Bld) [#/Vol] 158 10*3/uL 140 - 440 10*3/uL [facility] RBC (Bld) [#/Vol] 2.37 10*6/uL Low 3.80 - 5.2 0 10*6/uL [facility] WBC (Bld) [#/Vol] 15.0 10*3/uL High 3.6 - 10.7 10*3/uL [facility] Calcium.ionized [Moles/Vol]o n 07-31-2024 Calcium.ionized (Bld) [Moles/Vol] 4.70 mg/dL 4.30 - 5.20 mg/dL [facility] Interpretation and review of laboratory results Normal [facility] PH, IONIZED CALCIUM 7.31 7.31 - 7.46 [facility] Calcium.ionized (Bld) [Moles/Vol] 4.80 mg/dL 4.30 - 5.20 mg/dL [facility] Interpretation and review of laboratory results Normal [facility] PH, IONIZED CALCIUM 7.36 7.31 - 7.46 [facility] Calcium.ionized (Bld) [Moles/Vol] 4.90 mg/dL 4.30 - 5.20 mg/dL [facility] Interpretation and review of laboratory results Normal [facility] PH, IONIZED CALCIUM 7.35 7.31 - 7.46 [facility] Calcium.ionized (Bld) [Moles/Vol] 4.80 mg/dL 4.30 - 5.20 mg/dL [facility] Interpretation and review of laboratory results Normal [facility] PH, IONIZED CALCIUM 7.38 7.31 - 7.46 [facility] HEMOGLOBIN AND HEMATOCRIT, B LOODon 07-31-2024 Hematocrit (Bld) [Volume fraction] 25.4 % Low 35.0-47.0 [facility] Comment on above: Order Comment: Recom mend 1 hour post transfusion Performed By: #### L [id number] ####Textile Engineer: MARY SOTELO ([phone])[facility] ([facility])[address] [place] [address] Hemoglobin (Bld) [Mass/Vol] 8.0 g/dL Low 11.7-16.0 [facility] Comment on above: Order Comment: Recom mend 1 hour post transfusion Performed By: #### L [id number] ####Textile Engineer: MARY SOTELO ([id number])[facility] ([facility])[address] [place] [address] Hemoglobin (Bld) [Mass/Vol]o n 07-31-2024 Hematocrit (Bld) [Volume fraction] 25.4 % Low 35.0 - 47.0 % [facility] Interpretation and review of laboratory results Abnormal [facility] IDNon 07-31-2024 IDN Normal [facility] Laboratory - Chemistry and C hemistry - challengeon 07-31-2024 Glucose [Mass/Vol] 107 mg/dL High 70 - 100 mg/dL [facility] Glucose [Mass/Vol] 118 mg/dL High 70 - 100 mg/dL [facility] Glucose [Mass/Vol] 61 mg/dL Low 70 - 100 mg/dL [facility] Glucose [Mass/Vol] 127 mg/dL High 70 - 100 mg/dL [facility] Base excess Calc (Bld) [Moles/Vol] -0.9000 mmol/L -3.0 - 3.0 mmol/L [facility] CO2 (Bld) [Partial pressure] 47.9 mm[Hg] High - PINF [facility] CO2 [Moles/Vol] 26.4 mmol/L 23.0 - 27.0 mmol/L [facility] HCO3 (Bld) [Moles/Vol] 25.0 mmol/L 21.0 - 25.0 mmol/L [facility] Oxygen (Bld) [Partial pressure] 143.8 mm[Hg] High [facility] pH (Bld) 7.335 [pH] Low 7.350 - 7.450 [facility] Glucose [Mass/Vol] 177 mg/dL High 70 - 100 mg/dL [facility] Glucose [Mass/Vol] 237 mg/dL High 70 - 100 mg/dL [facility] Laboratory - Hematology and Cell countson 07-31-2024 Hemoglobin (Bld) [Mass/Vol] 8.0 g/dL Low 11.7 - 16.0 g/dL [facility] Hemoglobin (Bld) [Mass/Vol] 7.1 g/dL Screen only [facility] No Panel Informationon 07-31 Interpretation and review of laboratory results Abnormal [facility] Interpretation and review of laboratory results Abnormal [facility] Interpretation and review of laboratory results Abnormal [facility] Blood Expiration Date [id number] S [facility] Crossmatch interpretation COMP [facility] Product Blood Type 5100 [facility] PRODUCT CODE [id number] [facility] ABO O [facility] Unit Number [id number] [facility] alth Unit RH Positive [facility] Unit Volume 300 mL [facility] Interpretation and review of laboratory results Abnormal [facility] Interpretation and review of laboratory results Abnormal [facility] Source Of Oxygen Nasal cannula [facility] Interpretation and review of laboratory results Abnormal [facility] Interpretation and review of laboratory results Abnormal [facility] Progress Noteon 07-31-2024 Progress Note [facility] Progress Note Normal [facility] Progress Note Normal [facility] RENAL FUNCTION PANELon 07-31 Albumin [Mass/Vol] 1.9 g/dL Low 3.5-5.0 [facility] Comment on above: Performed By: #### L [id number] ####Textile Engineer: MARY SOTELO ([id number])[facility] ([address] Anion gap [Moles/Vol] 1 mmol/L Low 3-13 [facility] Comment on above: Performed By: #### L [id number] ####Textile Engineer: MARY SOTELO ([id number])[facility] ([facility])[address] [place] [address] Calcium [Mass/Vol] 8.2 mg/dL Low 8.4-10.4 [facility] Comment on above: Performed By: #### L [id number] ####Textile Engineer: MARY SOTELO ([phone])[facility] ([facility])[address] [place] [address] [place] Chloride [Moles/Vol] 104 mmol/L Normal 98-107 [facility] Comment on above: Performed By: #### L [id number] ####Textile Engineer: MARY SOTELO ([phone])[facility] ([facility])[address] [place] [address] CO2 [Moles/Vol] 25 mmol/L Normal 22-30 [facility] Comment on above: Performed By: #### L [id number] ####Textile Engineer: MARY SOTELO ([id number])[facility] ([facility])[address] [place] [address] Creatinine [Mass/Vol] 0.81 mg/dL Normal 0.52-1.[address] [facility] Comment on above: Performed By: #### L [id number] ####Textile Engineer: MARY SOTELO ([phone])[facility])[address] [place] [address] [place] GLOMERULAR FILTRATION RATE ML/MIN/1.73 SQ M.PREDICTED 81.2 mL/min/1.73m*2 Normal >60.0 [facility] Comment on above: Result Comment: Calc ulation based on the Chronic Kidney Disease Epidemiology Collaboration (CKD-EPI) equation refit without adjustment for race Performed By: #### L [id number] ####Textile Engineer: MARY SOTELO ([id number])[facility] ([facility])[address] [place] [address] [place] Glucose [Mass/Vol] 173 mg/dL High 70-100 [facility] Comment on above: Performed By: #### L [id number] ####Textile Engineer: MARY [id number])[facility] ([facility])[address] [place] [address] [place] Phosphate [Mass/Vol] 3.1 mg/dL Normal 2.5-4.5 [facility] Comment on above: Performed By: #### L [id number] ####Textile Engineer: MARY SOTELO ([id number])[facility] [place] [address] Potassium [Moles/Vol] 3.9 mmol/L Normal 3.5-5.1 [facility] Comment on above: Performed By: #### L [id number] ####Textile Engineer: MARY SOTELO ([phone])[facility] ([facility])[address] [place] [address] Sodium [Moles/Vol] 130 mmol/L Low 135-145 [facility] Comment on above: Performed By: #### L [id number] ####Textile Engineer: MARY SOTELO ([phone])[facility] [place] [address] Urea nitrogen [Mass/Vol] 16 mg/dL Normal 7-17 [facility] Comment on above: Performed By: #### L [id number] ####Textile Engineer: MARY SOTELO ([id number])[facility] ([facility])[address] [place] [address] Albumin [Mass/Vol] 1.9 g/dL Low 3.5-5.0 [facility] Comment on above: Performed By: #### L [id number] ####Textile Engineer: MARY SOTELO ([phone])[facility] [place] [address] [place] Anion gap [Moles/Vol] 2 mmol/L Low 3-13 [facility] Comment on above: Performed By: #### L [id number] ####Textile Engineer: MARY SOTELO ([phone])[facility] ([facility])[address] [place] [address] [place] Calcium [Mass/Vol] 8.7 mg/dL Normal 8.4-10.4 [facility] Comment on above: Performed By: #### L [id number] ####Textile Engineer: MARY SOTELO ([id number])[facility] ([facility])[address] [place] [address] [place] Chloride [Moles/Vol] 105 mmol/L Normal 98-107 [facility] Comment on above: Performed By: #### L [id number] ####Textile Engineer: MARY SOTELO ([id number])[facility] ([facility])[address] [place] [address] [place] CO2 [Moles/Vol] 25 mmol/L Normal 22-30 [facility] Comment on above: Performed By: #### L [id number] ####Textile Engineer: MARY SOTELO ([id number])[facility] ([facility])[address] [place] [address] Creatinine [Mass/Vol] 0.89 mg/dL Normal 0.52-1.[address] [facility] Comment on above: Performed By: #### L [id number] ####Textile Engineer: MARY SOTELO ([id number])[facility] ([facility])[address] [place] [address] [place] GLOMERULAR FILTRATION RATE ML/MIN/1.73 SQ M.PREDICTED 72.5 mL/min/1.73m*2 Normal >60.0 [facility] Comment on above: Result Comment: Calc ulation based on the Chronic Kidney Disease Epidemiology Collaboration (CKD-EPI) equation refit without adjustment for race Performed By: #### L [id number] ####Textile Engineer: MARY SOTELO ([id number])[facility] ([facility])[address] [place] [address] [place] Glucose [Mass/Vol] 104 mg/dL High 70-100 [facility] Comment on above: Performed By: #### L [id number] ####Textile Engineer: MARY SOTELO ([phone])[facility] ([facility])[address] [place] [address] [place] Phosphate [Mass/Vol] 3.2 mg/dL Normal 2.5-4.5 [facility] Comment on above: Performed By: #### L [id number] ####Textile Engineer: MARY SOTELO ([id number])[facility] [place] [address] Potassium [Moles/Vol] 3.7 mmol/L Normal 3.5-5.[address] [facility] Comment on above: Performed By: #### L [id number] ####Textile Engineer: MARY SOTELO ([id number])[facility] [place] [address] [place] Sodium [Moles/Vol] 132 mmol/L Low 135-145 [facility] Comment on above: Performed By: #### L [id number] ####Textile Engineer: MARY SOTELO ([phone])[facility] ([facility])[address] [place] [address] Urea nitrogen [Mass/Vol] 19 mg/dL High 7-17 [facility] Comment on above: Performed By: #### L [id number] ####Textile Engineer: MARY SOTELO ([id number])[facility] ([facility])[address] [place] [address] Albumin [Mass/Vol] 2.1 g/dL Low 3.5-5.0 [facility] Comment on above: Performed By: #### L [id number] ####Textile Engineer: MARY SOTELO ([phone])[facility] ([facility])[address] [place] [address] Anion gap [Moles/Vol] 3 mmol/L Normal 3-13 [facility] Comment on above: Performed By: #### L [id number] ####Textile Engineer: MARY SOTELO ([phone])[facility] ([facility])[address] [place] [address] [place] Calcium [Mass/Vol] 8.7 mg/dL Normal 8.4-10.4 [facility] Comment on above: Performed By: #### L AB19 ####Textile Engineer: MARY SOTELO ([id number])[facility] [place] [address] [place] Chloride [Moles/Vol] 105 mmol/L Normal 98-107 [facility] Comment on above: Performed By: #### L AB19 ####Textile Engineer: MARY SOTELO ([phone])[facility])[address] [place] [address] CO2 [Moles/Vol] 24 mmol/L Normal 22-30 [facility] Comment on above: Performed By: #### L AB19 ####Textile Engineer: MARY SOTELO ([phone])[facility])[address] [place] [address] Creatinine [Mass/Vol] 0.91 mg/dL Normal 0.52-1.[address] [facility] Comment on above: Performed By: #### L [id number] ####Textile Engineer: MARY SOTELO ([phone])[facility])[address] [place] [address] [place] GLOMERULAR FILTRATION RATE ML/MIN/1.73 SQ M.PREDICTED 70.6 mL/min/1.73m*2 Normal >60.0 [facility] Comment on above: Result Comment: Calc ulation based on the Chronic Kidney Disease Epidemiology Collaboration (CKD-EPI) equation refit without adjustment for race Performed By: #### L AB19 ####Textile Engineer: MARY SOTELO ([phone])[facility])[address] [place] [address] [place] Glucose [Mass/Vol] 161 mg/dL High 70-100 [facility] Comment on above: Performed By: #### L AB19 ####Textile Engineer: MARY SOTELO ([phone])[facility])[address] [place] [address] [place] Phosphate [Mass/Vol] 3.8 mg/dL Normal 2.5-4.5 [facility] Comment on above: Performed By: #### L AB19 ####Textile Engineer: MARY SOTELO ([phone])[facility])[address] [place] [address] Potassium [Moles/Vol] 4.2 mmol/L Normal 3.5-5.1 [facility] Comment on above: Performed By: #### L AB19 ####Textile Engineer: MARY SOTELO ([id number])[facility] ([facility])[address] [place] [address] Sodium [Moles/Vol] 131 mmol/L Low 135-145 [facility] Comment on above: Performed By: #### L AB19 ####Textile Engineer: MARY SOTELO ([id number])[facility] ([facility])[address] [place] [address] Urea nitrogen [Mass/Vol] 22 mg/dL High 7-17 [facility] Comment on above: Performed By: #### L AB19 ####Textile Engineer: MARY SOTELO ([phone])[facility] ([facility])[address] [place] [address] Albumin [Mass/Vol] 2.2 g/dL Low 3.5-5.0 [facility] Comment on above: Performed By: #### L AB19 ####Textile Engineer: MARY SOTELO ([id number])[facility] ([facility])[address] [place] [address] Anion gap [Moles/Vol] 3 mmol/L Normal 3-[address] [facility] Comment on above: Performed By: #### L AB19 ####Textile Engineer: MARY SOTELO ([id number])[facility] ([facility])[address] [place] [address] Calcium [Mass/Vol] 8.7 mg/dL Normal 8.4-10.4 [facility] Comment on above: Performed By: #### L AB19 ####Textile Engineer: MARY SOTELO ([phone])[facility] ([facility])[address] [place] [address] [place] Chloride [Moles/Vol] 105 mmol/L Normal 98-107 [facility] Comment on above: Performed By: #### L AB19 ####Textile Engineer: MARY SOTELO ([id number])[facility] ([facility])[address] [place] [address] [place] CO2 [Moles/Vol] 24 mmol/L Normal 22-30 [facility] Comment on above: Performed By: #### L AB19 ####Textile Engineer: MARY SOTELO ([phone])[facility] ([facility])[address] [place] [address] Creatinine [Mass/Vol] 0.98 mg/dL Normal 0.52-1.[address] [facility] Comment on above: Performed By: #### L AB19 ####Textile Engineer: MARY SOTELO ([phone])[facility] ([facility])[address] [place] [address] GLOMERULAR FILTRATION RATE ML/MIN/1.73 SQ M.PREDICTED 64.6 mL/min/1.73m*2 Normal >60.0 [facility] Comment on above: Result Comment: Calc ulation based on the Chronic Kidney Disease Epidemiology Collaboration (CKD-EPI) equation refit without adjustment for race Performed By: #### L AB19 ####Textile Engineer: MARY SOTELO ([id number])[facility] ([facility])[address] [place] [address] [place] Glucose [Mass/Vol] 229 mg/dL High 70-100 [facility] Comment on above: Performed By: #### L AB19 ####Textile Engineer: MARY SOTELO ([id number])[facility] ([facility])[address] [place] [address] Phosphate [Mass/Vol] 4.0 mg/dL Normal 2.5-4.5 [facility] Comment on above: Performed By: #### L AB19 ####Textile Engineer: MARY SOTELO ([phone])[facility] ([facility])[address] [place] [address] [place] Potassium [Moles/Vol] 4.5 mmol/L Normal 3.5-5.[address] [facility] Comment on above: Performed By: #### L AB19 ####Textile Engineer: MARY SOTELO ([phone])[facility] ([facility])[address] [place] [address] [place] Sodium [Moles/Vol] 132 mmol/L Low 135-145 [facility] Comment on above: Performed By: #### L AB19 ####Textile Engineer: MARY SOTELO ([id number])[address] Urea nitrogen [Mass/Vol] 24 mg/dL High 7-17 [facility] Comment on above: Performed By: #### L AB19 ####Textile Engineer: MARY SOTELO ([id number])[facility] ([address] Renal function 2000 panelon 07-31-2024 Albumin [Mass/Vol] 1.9 g/dL Low 3.5 - 5.0 g/dL [facility] Anion gap [Moles/Vol] 1 mmol/L Low 3 - 13 mmol/L [facility] Calcium [Mass/Vol] 8.2 mg/dL Low 8.4 - 10. 4 mg/dL [facility] Chloride [Moles/Vol] 104 mmol/L 98 - 10 7 mmol/L [facility] CO2 [Moles/Vol] 25 mmol/L 22 - 30 mmol/L [facility] Creatinine [Mass/Vol] 0.81 mg/dL 0.52 - 1.04 mg/dL [facility] GFR/1.73 sq M.predicted (S/P/Bld) [Vol rate/Area] 81.2 mL/min - PINF [facility] Glucose [Mass/Vol] 173 mg/dL High 70 - 100 mg/dL [facility] Interpretation and review of laboratory results Abnormal [facility] Phosphate [Mass/Vol] 3.1 mg/dL 2.5 - 4 .5 mg/dL [facility] Potassium [Moles/Vol] 3.9 mmol/L 3.5 - 5.1 mmol/L [facility] Sodium [Moles/Vol] 130 mmol/L Low 135 - 145 mmol/L [facility] Urea nitrogen [Mass/Vol] 16 mg/dL 7 - 17 mg/dL [facility] Albumin [Mass/Vol] 1.9 g/dL Low 3.5 - 5.0 g/dL [facility] Anion gap [Moles/Vol] 2 mmol/L Low 3 - 13 mmol/L [facility] Calcium [Mass/Vol] 8.7 mg/dL 8.4 - 10. 4 mg/dL [facility] Chloride [Moles/Vol] 105 mmol/L 98 - 10 7 mmol/L [facility] CO2 [Moles/Vol] 25 mmol/L 22 - 30 mmol/L [facility] Creatinine [Mass/Vol] 0.89 mg/dL 0.52 - 1.04 mg/dL [facility] GFR/1.73 sq M.predicted (S/P/Bld) [Vol rate/Area] 72.5 mL/min - PINF [facility] Glucose [Mass/Vol] 104 mg/dL High 70 - 100 mg/dL [facility] Interpretation and review of laboratory results Abnormal [facility] Phosphate [Mass/Vol] 3.2 mg/dL 2.5 - 4 .5 mg/dL [facility] Potassium [Moles/Vol] 3.7 mmol/L 3.5 - 5.1 mmol/L [facility] Sodium [Moles/Vol] 132 mmol/L Low 135 - 145 mmol/L [facility] Urea nitrogen [Mass/Vol] 19 mg/dL High 7 - 17 mg/dL [facility] Albumin [Mass/Vol] 2.1 g/dL Low 3.5 - 5.0 g/dL [facility] Anion gap [Moles/Vol] 3 mmol/L 3 - 13 mmol/L [facility] Calcium [Mass/Vol] 8.7 mg/dL 8.4 - 10. 4 mg/dL [facility] Chloride [Moles/Vol] 105 mmol/L 98 - 10 7 mmol/L [facility] CO2 [Moles/Vol] 24 mmol/L 22 - 30 mmol/L [facility] Creatinine [Mass/Vol] 0.91 mg/dL 0.52 - 1.04 mg/dL [facility] GFR/1.73 sq M.predicted (S/P/Bld) [Vol rate/Area] 70.6 mL/min - PINF [facility] Glucose [Mass/Vol] 161 mg/dL High 70 - 100 mg/dL [facility] Interpretation and review of laboratory results Abnormal [facility] Phosphate [Mass/Vol] 3.8 mg/dL 2.5 - 4 .5 mg/dL [facility] Potassium [Moles/Vol] 4.2 mmol/L 3.5 - 5.1 mmol/L [facility] Sodium [Moles/Vol] 131 mmol/L Low 135 - 145 mmol/L [facility] Urea nitrogen [Mass/Vol] 22 mg/dL High 7 - 17 mg/dL [facility] Albumin [Mass/Vol] 2.2 g/dL Low 3.5 - 5.0 g/dL [facility] Anion gap [Moles/Vol] 3 mmol/L 3 - 13 mmol/L [facility] Calcium [Mass/Vol] 8.7 mg/dL 8.4 - 10. 4 mg/dL [facility] Chloride [Moles/Vol] 105 mmol/L 98 - 10 7 mmol/L [facility] CO2 [Moles/Vol] 24 mmol/L 22 - 30 mmol/L [facility] Creatinine [Mass/Vol] 0.98 mg/dL 0.52 - 1.04 mg/dL [facility] GFR/1.73 sq M.predicted (S/P/Bld) [Vol rate/Area] 64.6 mL/min - PINF [facility] Glucose [Mass/Vol] 229 mg/dL High 70 - 100 mg/dL [facility] Interpretation and review of laboratory results Abnormal [facility] Phosphate [Mass/Vol] 4.0 mg/dL 2.5 - 4 .5 mg/dL [facility] Potassium [Moles/Vol] 4.5 mmol/L 3.5 - 5.1 mmol/L [facility] Sodium [Moles/Vol] 132 mmol/L Low 135 - 145 mmol/L [facility] Urea nitrogen [Mass/Vol] 24 mg/dL High 7 - 17 mg/dL [facility] BLOOD GAS ARTERIALon 024 Base excess Calc (Bld) [Moles/Vol] 1.9 mmol/L Normal -3.0-3.0 [facility] Comment on above: Performed By: #### L [id number] ####Textile Engineer: MARY SOTELO ([phone])[address] CO2 [Moles/Vol] 28.3 mmol/L High 23.0-27.0 [facility] Comment on above: Performed By: #### L [id number] ####Textile Engineer: MARY SOTELO ([phone])[facility])[address] [place] [address] HCO3 (Bld) [Moles/Vol] 26.9 mmol/L High 21.0-25.0 S [facility] Comment on above: Performed By: #### L [id number] ####Textile Engineer: MARY SOTELO ([id number])[facility] ([facility])[address] [place] [address] Hemoglobin (Bld) [Mass/Vol] 7.7 g/dL Normal Screen only [facility] Comment on above: Performed By: #### L [id number] ####Textile Engineer: MARY SOTELO ([id number])[facility] ([facility])[address] [place] [address] OXYGEN SATURATION (%) IN ARTERIAL BLOOD 97.9 % Normal 95.0-100.0 [facility] Comment on above: Performed By: #### L [id number] ####Textile Engineer: MARY SOTELO ([id number])[facility] [place] [address] PCO2 ARTERIAL 44.6 mm Hg Normal >35.0-<45.0 [facility] Comment on above: Performed By: #### L [id number] ####Textile Engineer: MARY SOTELO ([id number])[facility] ([facility])[address] [place] [address] PH ARTERIAL 7.399 Normal 7.350-7.450 [facility] Comment on above: Performed By: #### L [id number] ####Textile Engineer: MARY SOTELO ([phone])[facility] ([facility])[address] [place] [address] PO2 ARTERIAL 113.8 mm Hg High 80.0-100.0 [facility] Comment on above: Performed By: #### L [id number] ####Textile Engineer: MARY SOTELO ([phone])[facility] ([facility])[address] [place] [address] SOURCE OF OXYGEN 30% Oxygen Normal [facility] Comment on above: Result Comment: lon llator Performed By: #### L [id number] ####Textile Engineer: MARY SOTELO ([phone])[facility] ([facility])[address] [place] [address] Base excess Calc (Bld) [Moles/Vol] 0.7 mmol/L Normal -3.0-3.0 [facility] Comment on above: Performed By: #### L [id number] ####Textile Engineer: MARY SOTELO ([phone])[facility] ([facility])[address] [place] [address] CO2 [Moles/Vol] 27.6 mmol/L High 23.0-27.0 [facility] Comment on above: Performed By: #### L [id number] ####Textile Engineer: MARY SOTELO ([phone])[facility] ([facility])[address] [place] [address] HCO3 (Bld) [Moles/Vol] 26.2 mmol/L High 21.0-25.0 [facility] Comment on above: Performed By: #### L [id number] ####Textile Engineer: MARY SOTELO ([phone])[facility] ([facility])[address] [place] [address] Hemoglobin (Bld) [Mass/Vol] 7.9 g/dL Normal Screen only [facility] Comment on above: Performed By: #### L [id number] ####Textile Engineer: MARY SOTELO ([phone])[facility] ([facility])[address] [place] [address] OXYGEN SATURATION (%) IN ARTERIAL BLOOD 97.2 % Normal 95.0-100.0 [facility] Comment on above: Performed By: #### L [id number] ####Textile Engineer: MARY SOTELO ([phone])[facility] ([facility])[address] [place] [address] PCO2 ARTERIAL 46.3 mm Hg High >35.0-<45.0 [facility] Comment on above: Performed By: #### L [id number] ####Textile Engineer: MARY SOTELO ([phone])[facility])[address] [place] [address] PH ARTERIAL 7.370 Normal 7.350-7.450 [facility] Comment on above: Performed By: #### L [id number] ####Textile Engineer: MARY SOTELO ([phone])[facility] ([facility])[address] [place] [address] PO2 ARTERIAL 114.1 mm Hg High 80.0-[facility].0 [facility] Comment on above: Performed By: #### L [id number] ####Textile Engineer: MARY SOTELO ([id number])[facility] ([facility])[address] [place] [address] SOURCE OF OXYGEN Vent Normal [facility] Comment on above: Performed By: #### L [id number] ####Textile Engineer: MARY SOTELO ([phone])[facility])[address] [place] [address] CALCIUM, IONIZEDon 4 CALCIUM IONIZED 4.90 mg/dL Normal 4.30-5.20 [facility] Comment on above: Performed By: #### L [id number] ####Textile Engineer: MARY SOTELO ([phone])[facility])[address] [place] [address] PH, IONIZED CALCIUM 7.34 Normal 7.31-7.46 [facility] Comment on above: Performed By: #### L [id number] ####Textile Engineer: MARY SOTELO ([phone])[facility])[address] [place] [address] CALCIUM IONIZED 4.20 mg/dL Low 4.30-5.20 [facility] Comment on above: Performed By: #### L [id number] ####Textile Engineer: MARY SOTELO ([phone])[facility])[address] [place] [address] PH, IONIZED CALCIUM 7.43 Normal 7.31-7.46 [facility] Comment on above: Performed By: #### L [id number] ####Textile Engineer: MARY SOTELO ([id number])[facility] ([facility])[address] [place] [address] CALCIUM IONIZED 4.10 mg/dL Low 4.30-5.20 [facility] Comment on above: Performed By: #### L [id number] ####Textile Engineer: MARY SOTELO ([phone])[facility])[address] [place] [address] PH, IONIZED CALCIUM 7.42 Normal 7.31-7.46 [facility] Comment on above: Performed By: #### L [id number] ####Textile Engineer: MARY SOTELO ([phone])[facility])[address] [place] [address] CALCIUM IONIZED 4.30 mg/dL Normal 4.30-5.20 [facility] Comment on above: Performed By: #### L [id number] ####Textile Engineer: MARY SOTELO ([phone])[facility])[address] [place] [address] PH, IONIZED CALCIUM 7.37 Normal 7.31-7.46 [facility] Comment on above: Performed By: #### L [id number] ####Textile Engineer: MARY SOTELO ([phone])[facility])[address] [place] [address] CARECOORDon 07-30-2024 CARECOORD Normal [facility] CBC WITH AUTO DIFFERENTIALon 07-30-2024 Basophils (Bld) [#/Vol] 0.0 10*3/uL Normal 0.0-0.2 [facility] Comment on above: Performed By: #### L [id number] ####Textile Engineer: MARY SOTELO ([phone])[facility])[address] [place] [address] Basophils/100 WBC (Bld) 0.0 % Normal 0.0-2.0 [facility] Comment on above: Performed By: #### L [id number] ####Textile Engineer: MARY SOTELO ([phone])[facility])[address] [place] [address] Eosinophils (Bld) [#/Vol] 0.0 10*3/uL Normal 0.0-0.5 [facility] Comment on above: Performed By: #### L [id number] ####Textile Engineer: MARY SOTELO ([id number])[facility])[address] [place] [address] Eosinophils/100 WBC (Bld) 0.0 % Normal 0.0-6.0 [facility] Comment on above: Performed By: #### L [id number] ####Textile Engineer: MARY SOTELO ([id number])[address] Erythrocyte distribution width (RBC) [Ratio] 15.5 % High 11.5-15.0 [facility] Comment on above: Performed By: #### L [id number] ####Textile Engineer: MARY SOTELO ([phone])[facility])[address] [place] [address] Hematocrit (Bld) [Volume fraction] 23.0 % Low 35.0-47.0 [facility] Comment on above: Performed By: #### L [id number] ####Textile Engineer: MARY SOTELO ([id number])[address] Hemoglobin (Bld) [Mass/Vol] 7.3 g/dL Low 11.7-16.0 [facility] Comment on above: Performed By: #### L [id number] ####Textile Engineer: MARY SOTELO ([phone])[facility])[address] [place] [address] IMMATURE GRANS % 0.4 % Normal 0.0-2.0 [facility] Comment on above: Performed By: #### L [id number] ####Textile Engineer: MARY SOTELO ([phone])[facility])[address] [place] [address] IMMATURE GRANS ABSOLUTE 0.1 10*3/uL High <0.1 [facility] Comment on above: Performed By: #### L [id number] ####Textile Engineer: MARY SOTELO ([phone])[facility])[address] [place] [address] Lymphocytes (Bld) [#/Vol] 0.6 10*3/uL Low 1.0-4.3 [facility] Comment on above: Performed By: #### L [id number] ####Textile Engineer: MARY SOTELO ([id number])[facility])[address] [place] [address] Lymphocytes/100 WBC (Bld) 4.3 % Low 15.0-45.0 [facility] Comment on above: Performed By: #### L [id number] ####Textile Engineer: MARY SOTELO ([id number])[facility])[address] [place] [address] MCH (RBC) [Entitic mass] 28.6 pg Normal 26.0-34.0 [facility] Comment on above: Performed By: #### L [id number] ####Textile Engineer: MARY SOTELO ([phone])[facility])[address] [place] [address] MCHC 31.7 % Normal 30.5-36.0 [facility] Comment on above: Performed By: #### L [id number] ####Textile Engineer: MARY SOTELO ([phone])[facility])[address] [place] [address] MCV (RBC) [Entitic vol] 90.2 fL Normal 77.0-99.0 [facility] Comment on above: Performed By: #### L [id number] ####Textile Engineer: MARY SOTELO ([phone])[facility])[address] [place] [address] Monocytes (Bld) [#/Vol] 0.6 10*3/uL Normal 0.0-0.9 [facility] Comment on above: Performed By: #### L [id number] ####Textile Engineer: MARY SOTELO ([id number])[facility] ([facility])[address] [place] [address] Monocytes/100 WBC (Bld) 4.4 % Low 5.0-13.0 [facility] Comment on above: Performed By: #### L [id number] ####Textile Engineer: MARY SOTELO ([phone])[facility] ([facility])[address] [place] [address] NEUTROPHILS ABSOLUTE 12.3 10*3/uL High 1.8-7.5 [facility] Comment on above: Performed By: #### L [id number] ####Textile Engineer: MARY SOTELO ([id number])[facility])[address] [place] [address] Neutrophils/100 WBC (Bld) 90.9 % High 38.0-82.0 [facility] Comment on above: Performed By: #### L [id number] ####Textile Engineer: MARY SOTELO ([id number])[facility] ([facility])[address] [place] [address] NRBC 0.0 /100 WBCs Normal 0.0-2.0 [facility] Comment on above: Performed By: #### L [id number] ####Textile Engineer: MARY SOTELO ([id number])[facility] ([facility])[address] [place] [address] Platelet mean volume (Bld) [Entitic vol] 10.5 fL Normal 9.0-12.7 [facility] Comment on above: Performed By: #### L [id number] ####Textile Engineer: MARY SOTELO ([phone])[facility] ([facility])[address] [place] [address] [place] Platelets (Bld) [#/Vol] 161 10*3/uL Normal 140-440 [facility] Comment on above: Performed By: #### L [id number] ####Textile Engineer: MARY SOTELO ([phone])[facility] ([facility])[address] [place] [address] RBC (Bld) [#/Vol] 2.55 10*6/uL Low 3.80-5.20 [facility] Comment on above: Performed By: #### L [id number] ####Textile Engineer: MARY SOTELO ([id number])[facility] ([facility])[address] [place] [address] WBC (Bld) [#/Vol] 13.6 10*3/uL High 3.6-10.7 [facility] Comment on above: Performed By: #### L [id number] ####Textile Engineer: MARY SOTELO ([phone])[facility] ([facility])[address] [place] [address] IDNon 07-30-2024 IDN Normal [facility] - Chemistry and C hemistry - challengeon 07-30-2024 Glucose [Mass/Vol] 165 mg/dL High 70 - 100 mg/dL [facility] No Panel Informationon 07-30 Interpretation and review of laboratory results Abnormal [facility] Nursing Noteon 07-30-2024 Nursing Note Patient pulled out O G tube. Also pulled out ET tube a couple centimeters. . Respiratory therapist advanced ET tube. OG tube place to 55cm. Will get Xray. Restarted Fentanyl. Precedex maxed. Normal [facility] Nursing Note Patient got ahold of suction tubing on ET tube. Pulled her ET tube out a couple centimeters. Respiratory therapist notified. Normal [facility] Progress Noteon 07-30-2024 Progress Note Normal [facility] Progress Note Normal [facility] Progress [facility] Normal [facility] Progress Note Normal [facility] Progress Note PHYSICAL THERAPY [facility] Name/MRN: Sandy Deng ([id number]) Date: 07/30/2024 Screen Note. Pt remains intubated and sedated with orders for strict bed rest. Will continue to follow and re-attempt as able. Jennifer Saldaña, SPT Normal [facility] Progress Note Normal [facility] RENAL FUNCTION PANELon 07-30 Albumin [Mass/Vol] 2.0 g/dL Low 3.5-5.0 [facility] Comment on above: Performed By: #### L [id number] ####Textile Engineer: MARY SOTELO ([id number])[facility] ([facility])[address] [place] [address] Anion gap [Moles/Vol] 0 mmol/L Low 3-[address] [facility] Comment on above: Performed By: #### L [id number] ####Textile Engineer: MARY SOTELO ([phone])[facility] [place] [address] Calcium [Mass/Vol] 8.7 mg/dL Normal 8.4-10.4 [facility] Comment on above: Performed By: #### L [id number] ####Textile Engineer: MARY SOTELO ([id number])[facility] ([facility])[address] [place] [address] Chloride [Moles/Vol] 104 mmol/L Normal 98-107 [facility] Comment on above: Performed By: #### L [id number] ####Textile Engineer: MARY SOTELO ([phone])[facility] ([facility])[address] [place] [address] CO2 [Moles/Vol] 28 mmol/L Normal 22-30 [facility] Comment on above: Performed By: #### L [id number] ####Textile Engineer: MARY SOTELO ([phone])[facility] ([facility])[address] [place] [address] Creatinine [Mass/Vol] 0.98 mg/dL Normal 0.52-1.[address] [facility] Comment on above: Performed By: #### L [id number] ####Textile Engineer: MARY SOTELO ([phone])[facility])[address] [place] [address] GLOMERULAR FILTRATION RATE ML/MIN/1.73 SQ M.PREDICTED 64.6 mL/min/1.73m*2 Normal >60.0 [facility] Comment on above: Result Comment: Calc ulation based on the Chronic Kidney Disease Epidemiology Collaboration (CKD-EPI) equation refit without adjustment for race Performed By: #### L [id number] ####Textile Engineer: MARY SOTELO ([phone])[facility])[address] [place] [address] Glucose [Mass/Vol] 114 mg/dL High 70-100 [facility] Comment on above: Performed By: #### L [id number] ####Textile Engineer: MARY SOTELO ([phone])[facility] ([facility])[address] [place] [address] Phosphate [Mass/Vol] 3.7 mg/dL Normal 2.5-4.5 [facility] Comment on above: Performed By: #### L [id number] ####Textile Engineer: MARY SOTELO ([phone])[facility])[address] [place] [address] Potassium [Moles/Vol] 4.5 mmol/L Normal 3.5-5.[address] [facility] Comment on above: Performed By: #### L [id number] ####Textile Engineer: MARY SOTELO ([phone])[facility] ([facility])[address] [place] [address] Sodium [Moles/Vol] 132 mmol/L Low 135-145 [facility] Comment on above: Performed By: #### L [id number] ####Textile Engineer: MARY SOTELO ([phone])[facility])[address] [place] [address] [place] Urea nitrogen [Mass/Vol] 24 mg/dL High 7-17 [facility] Comment on above: Performed By: #### L [id number] ####Textile Engineer: MARY SOTELO ([phone])[facility])[address] [place] [address] [place] Albumin [Mass/Vol] 2.0 g/dL Low 3.5-5.0 [facility] Comment on above: Performed By: #### L [id number] ####Textile Engineer: MARY [id number])[facility])[address] [place] [address] Anion gap [Moles/Vol] 1 mmol/L Low 3-[address] [facility] Comment on above: Performed By: #### L [id number] ####Textile Engineer: MARY SOTELO ([phone])[facility] [place] [address] Calcium [Mass/Vol] 7.7 mg/dL Low 8.4-10.4 [facility] Comment on above: Performed By: #### L [id number] ####Textile Engineer: MARY SOTELO ([phone])[facility] [place] [address] Chloride [Moles/Vol] 104 mmol/L Normal 98-107 [facility] Comment on above: Performed By: #### L [id number] ####Textile Engineer: MARY SOTELO ([phone])[facility] [place] [address] CO2 [Moles/Vol] 28 mmol/L Normal 22-30 [facility] Comment on above: Performed By: #### L [id number] ####Textile Engineer: MARY SOTELO ([id number])[facility] ([facility])[address] [place] [address] Creatinine [Mass/Vol] 1.19 mg/dL High 0.52-1.[address] [facility] Comment on above: Performed By: #### L [id number] ####Textile Engineer: MARY SOTELO ([phone])[facility])[address] [place] [address] GLOMERULAR FILTRATION RATE ML/MIN/1.73 SQ M.PREDICTED 51.2 mL/min/1.73m*2 Low >60.0 [facility] Comment on above: Result Comment: Calc ulation based on the Chronic Kidney Disease Epidemiology Collaboration (CKD-EPI) equation refit without adjustment for race Performed By: #### L [id number] ####Textile Engineer: MARY SOTELO ([id number])[facility] ([facility])[address] [place] [address] Glucose [Mass/Vol] 89 mg/dL Normal 70-100 [facility] Comment on above: Performed By: #### L [id number] ####Textile Engineer: MARY SOTELO ([id number])[facility] ([facility])[address] [place] [address] Phosphate [Mass/Vol] 3.6 mg/dL Normal 2.5-4.5 [facility] Comment on above: Performed By: #### L [id number] ####Textile Engineer: MARY SOTELO ([phone])[facility] ([facility])[address] [place] [address] Potassium [Moles/Vol] 5.0 mmol/L Normal 3.5-5.[address] [facility] Comment on above: Performed By: #### L [id number] ####Textile Engineer: MARY SOTELO ([phone])[facility] ([facility])[address] [place] [address] Sodium [Moles/Vol] 133 mmol/L Low 135-145 [facility] Comment on above: Performed By: #### L [id number] ####Textile Engineer: MARY SOTELO ([phone])[facility] ([facility])[address] [place] [address] Urea nitrogen [Mass/Vol] 28 mg/dL High 7-17 [facility] Comment on above: Performed By: #### L [id number] ####Textile Engineer: MARY SOTELO ([phone])[facility])[address] [place] [address] Albumin [Mass/Vol] 2.1 g/dL Low 3.5-5.0 [facility] Comment on above: Performed By: #### L [id number] ####Textile Engineer: MARY SOTELO ([phone])[facility])[address] [place] [address] Anion gap [Moles/Vol] 1 mmol/L Low 3-13 [facility] Comment on above: Performed By: #### L [id number] ####Textile Engineer: MARY SOTELO ([phone])[facility])[address] [place] [address] Calcium [Mass/Vol] 7.3 mg/dL Low 8.4-10.4 [facility] Comment on above: Performed By: #### L [id number] ####Textile Engineer: MARY SOTELO ([phone])[facility] [place] [address] [place] Chloride [Moles/Vol] 105 mmol/L Normal 98-107 [facility] Comment on above: Performed By: #### L [id number] ####Textile Engineer: MARY SOTELO ([phone])[facility] [place] [address] CO2 [Moles/Vol] 26 mmol/L Normal 22-30 [facility] Comment on above: Performed By: #### L [id number] ####Textile Engineer: MARY SOTELO ([id number])[facility] ([facility])[address] [place] [address] Creatinine [Mass/Vol] 1.37 mg/dL High 0.52-1.04 [facility] Comment on above: Performed By: #### L [id number] ####Textile Engineer: MARY SOTELO ([phone])[facility] ([facility])[address] [place] [address] [place] GLOMERULAR FILTRATION RATE ML/MIN/1.73 SQ M.PREDICTED 43.2 mL/min/1.73m*2 Low >60.0 [facility] Comment on above: Result Comment: Calc ulation based on the Chronic Kidney Disease Epidemiology Collaboration (CKD-EPI) equation refit without adjustment for race Performed By: #### L [id number] ####Textile Engineer: MARY SOTELO ([phone])[facility] ([facility])[address] [place] [address] [place] Glucose [Mass/Vol] 149 mg/dL High 70-100 [facility] Comment on above: Performed By: #### L [id number] ####Textile Engineer: MARY SOTELO ([phone])[facility] ([facility])[address] [place] [address] Phosphate [Mass/Vol] 4.1 mg/dL Normal 2.5-4.5 [facility] Comment on above: Performed By: #### L [id number] ####Textile Engineer: MARY SOTELO ([phone])[facility] [place] [address] Potassium [Moles/Vol] 5.4 mmol/L High 3.5-5.1 [facility] Comment on above: Performed By: #### L [id number] ####Textile Engineer: MARY SOTELO ([phone])[facility] ([facility])[address] [place] [address] Sodium [Moles/Vol] 132 mmol/L Low 135-145 [facility] Comment on above: Performed By: #### L [id number] ####Textile Engineer: MARY SOTELO ([id number])[facility] ([facility])[address] [place] [address] Urea nitrogen [Mass/Vol] 31 mg/dL High 7-17 [facility] Comment on above: Performed By: #### L [id number] ####Textile Engineer: MARY SOTELO ([phone])[facility] ([facility])[address] [place] [address] Albumin [Mass/Vol] 2.0 g/dL Low 3.5-5.0 [facility] Comment on above: Performed By: #### L [id number] ####Textile Engineer: MARY SOTELO ([phone])[facility] ([facility])[address] [place] [address] Anion gap [Moles/Vol] 1 mmol/L Low 3-13 [facility] Comment on above: Performed By: #### L [id number] ####Textile Engineer: MARY SOTELO ([phone])[facility] ([facility])[address] [place] [address] Calcium [Mass/Vol] 7.6 mg/dL Low 8.4-10.4 [facility] Comment on above: Performed By: #### L [id number] ####Textile Engineer: MARY SOTELO ([id number])[facility] ([facility])[address] [place] [address] Chloride [Moles/Vol] 106 mmol/L Normal 98-107 [facility] Comment on above: Performed By: #### L [id number] ####Textile Engineer: MARY SOTELO ([phone])[facility] ([facility])[address] [place] [address] CO2 [Moles/Vol] 24 mmol/L Normal 22-30 [facility] Comment on above: Performed By: #### L [id number] ####Textile Engineer: MARY SOTELO ([phone])[facility])[address] [place] [address] Creatinine [Mass/Vol] 1.54 mg/dL High 0.52-1.[address] [facility] Comment on above: Performed By: #### L [id number] ####Textile Engineer: MARY SOTELO ([phone])[facility])[address] [place] [address] GLOMERULAR FILTRATION RATE ML/MIN/1.73 SQ M.PREDICTED 37.5 mL/min/1.73m*2 Low >60.0 [facility] Comment on above: Result Comment: Calc ulation based on the Chronic Kidney Disease Epidemiology Collaboration (CKD-EPI) equation refit without adjustment for race Performed By: #### L [id number] ####Textile Engineer: MARY SOTELO ([id number])[facility] ([facility])[address] [place] [address] Glucose [Mass/Vol] 147 mg/dL High 70-100 [facility] Comment on above: Performed By: #### L [id number] ####Textile Engineer: MARY SOTELO ([phone])[facility])[address] [place] [address] Phosphate [Mass/Vol] 4.2 mg/dL Normal 2.5-4.5 [facility] Comment on above: Performed By: #### L [id number] ####Textile Engineer: MARY [id number])[facility] ([facility])[address] [place] [address] Potassium [Moles/Vol] 5.3 mmol/L High 3.5-5.[address] [facility] Comment on above: Performed By: #### L [id number] ####Textile Engineer: MARY SOTELO ([phone])[facility] ([facility])[address] [place] [address] Sodium [Moles/Vol] 132 mmol/L Low 135-145 [facility] Comment on above: Performed By: #### L [id number] ####Textile Engineer: MARY SOTELO ([phone])[facility] ([facility])[address] [place] [address] Urea nitrogen [Mass/Vol] 32 mg/dL High 7-17 [facility] Comment on above: Performed By: #### L [id number] ####Textile Engineer: MARY SOTELO ([phone])[facility] ([facility])[address] [place] [address] Renal function 2000 panelon 07-30-2024 Albumin [Mass/Vol] 2.0 g/dL Low 3.5 - 5.0 g/dL [facility] Anion gap [Moles/Vol] 0 mmol/L Low 3 - 13 mmol/L [facility] Calcium [Mass/Vol] 8.7 mg/dL 8.4 - 10. 4 mg/dL [facility] XR CHEST 1 VIEWon 07-30-2024 XR CHEST 1 VIEW Normal [facility] BLOOD GAS ARTERIALon 024 Base excess Calc (Bld) [Moles/Vol] 0.9 mmol/L Normal -3.0-3.0 [facility] Comment on above: Performed By: #### L [id number] ####Textile Engineer: MARY SOTELO ([phone])[facility])[address] [place] [address] CO2 [Moles/Vol] 26.3 mmol/L Normal 23.0-27.0 [facility] Comment on above: Performed By: #### L [id number] ####Textile Engineer: MARY SOTELO ([id number])[facility] ([facility])[address] [place] [address] HCO3 (Bld) [Moles/Vol] 25.1 mmol/L High 21.0-25.0 [facility] Comment on above: Performed By: #### L [id number] ####Textile Engineer: MARY SOTELO ([phone])[facility])[address] [place] [address] Hemoglobin (Bld) [Mass/Vol] 8.3 g/dL Normal Screen only [facility] Comment on above: Performed By: #### L [id number] ####Textile Engineer: MARY SOTELO ([phone])[facility] ([facility])[address] [place] [address] OXYGEN SATURATION (%) IN ARTERIAL BLOOD 97.1 % Normal 95.0-100.0 [facility] Comment on above: Performed By: #### L [id number] ####Textile Engineer: MARY SOTELO ([id number])[facility] ([facility])[address] [place] [address] PCO2 ARTERIAL 37.9 mm Hg Normal >35.0-<45.0 [facility] Comment on above: Performed By: #### L [id number] ####Textile Engineer: MARY SOTELO ([id number])[facility] ([facility])[address] [place] [address] PH ARTERIAL 7.439 Normal 7.350-7.450 [facility] Comment on above: Performed By: #### L [id number] ####Textile Engineer: MARY SOTELO ([id number])[facility] ([facility])[address] [place] [address] PO2 ARTERIAL 96.3 mm Hg Normal 80.0-100.0 [facility] Comment on above: Performed By: #### L [id number] ####Textile Engineer: MARY OSTELO ([id number])[facility] ([facility])[address] [place] [address] SOURCE OF OXYGEN 30% Oxygen Normal [facility] Comment on above: Result Comment: vent ilator Performed By: #### L [id number] ####Textile Engineer: MARY SOTELO ([id number])[facility] ([facility])[address] [place] [address] Base excess Calc (Bld) [Moles/Vol] 3.5 mmol/L High -3.0-3.0 [facility] Comment on above: Performed By: #### L [id number] ####Textile Engineer: MARY SOTELO ([phone])[facility] ([facility])[address] [place] [address] CO2 [Moles/Vol] 27.7 mmol/L High 23.0-27.0 [facility] Comment on above: Performed By: #### L [id number] ####Textile Engineer: MARY SOTELO ([phone])[facility] ([facility])[address] [place] [address] HCO3 (Bld) [Moles/Vol] 26.7 mmol/L High 21.0-25.0 [facility] Comment on above: Performed By: #### L [id number] ####Textile Engineer: MARY SOTELO ([phone])[facility] ([facility])[address] [place] [address] Hemoglobin (Bld) [Mass/Vol] 8.0 g/dL Normal Screen only [facility] Comment on above: Performed By: #### L [id number] ####Textile Engineer: MARY SOTELO ([id number])[facility] ([facility])[address] [place] [address] OXYGEN SATURATION (%) IN ARTERIAL BLOOD 96.2 % Normal 95.0-100.0 [facility] Comment on above: Performed By: #### L [id number] ####Textile Engineer: MARY SOTELO ([id number])[facility])[address] [place] [address] PCO2 ARTERIAL 34.5 mm Hg Low >35.0-<45.0 [facility] Comment on above: Performed By: #### L [id number] ####Textile Engineer: MARY SOTELO ([phone])[facility] ([facility])[address] [place] [address] PH ARTERIAL 7.506 High 7.350-7.450 [facility] Comment on above: Performed By: #### L [id number] ####Textile Engineer: MARY SOTELO ([phone])[facility] ([facility])[address] [place] [address] PO2 ARTERIAL 88.9 mm Hg Normal 80.0-100.0 [facility] Comment on above: Performed By: #### L [id number] ####Textile Engineer: MARY SOTELO ([id number])[facility] ([facility])[address] [place] [address] SOURCE OF OXYGEN 30% Oxygen Normal [facility] Comment on above: Result Comment: vent ilator Performed By: #### L [id number] ####Textile Engineer: MARY SOTELO ([id number])[facility] ([facility])[address] [place] [address] Base excess Calc (Bld) [Moles/Vol] 1.9 mmol/L Normal -3.0-3.0 [facility] Comment on above: Performed By: #### L [id number] ####Textile Engineer: MARY SOTELO ([id number])[facility] ([facility])[address] [place] [address] CO2 [Moles/Vol] 26.0 mmol/L Normal 23.0-27.0 [facility] Comment on above: Performed By: #### L [id number] ####Textile Engineer: MARY SOTELO ([id number])[facility] ([facility])[address] [place] [address] HCO3 (Bld) [Moles/Vol] 25.0 mmol/L Normal 21.0-25.0 [facility] Comment on above: Performed By: #### L [id number] ####Textile Engineer: MARY SOTELO ([phone])[facility] ([facility])[address] [place] [address] Hemoglobin (Bld) [Mass/Vol] 8.2 g/dL Normal Screen only [facility] Comment on above: Performed By: #### L [id number] ####Textile Engineer: MARY SOTELO ([id number])[facility] ([facility])[address] [place] [address] OXYGEN SATURATION (%) IN ARTERIAL BLOOD 97.9 % Normal 95.0-100.0 [facility] Comment on above: Performed By: #### L [id number] ####Textile Engineer: MARY SOTELO ([phone])[facility] ([facility])[address] [place] [address] PCO2 ARTERIAL 32.6 mm Hg Low >35.0-<45.0 [facility] Comment on above: Performed By: #### L [id number] ####Textile Engineer: MARY SOTELO ([phone])[facility] ([facility])[address] [place] [address] PH ARTERIAL 7.502 High 7.350-7.450 [facility] Comment on above: Performed By: #### L [id number] ####Textile Engineer: MARY SOTELO ([id number])[facility] ([facility])[address] [place] [address] PO2 ARTERIAL 110.0 mm Hg High 80.0-[facility].0 [facility] Comment on above: Performed By: #### L [id number] ####Textile Engineer: MARY SOTELO ([phone])[facility] ([facility])[address] [place] [address] SOURCE OF OXYGEN Vent Normal [facility] Comment on above: Performed By: #### L [id number] ####Textile Engineer: MARY SOTELO ([id number])[facility] ([facility])[address] [place] [address] CALCIUM, IONIZEDon 4 CALCIUM IONIZED 4.70 mg/dL Normal 4.30-5.20 [facility] Comment on above: Performed By: #### L [id number] ####Textile Engineer: MARY SOTELO ([phone])[facility] ([facility])[address] [place] [address] PH, IONIZED CALCIUM 7.41 Normal 7.31-7.46 [facility] Comment on above: Performed By: #### L [id number] ####Textile Engineer: MARY SOTELO ([phone])[facility])[address] [place] [address] CALCIUM IONIZED 4.30 mg/dL Normal 4.30-5.20 [facility] Comment on above: Performed By: #### L [id number] ####Textile Engineer: MARY SOTELO ([phone])[facility])[address] [place] [address] PH, IONIZED CALCIUM 7.44 Normal 7.31-7.46 [facility] Comment on above: Performed By: #### L [id number] ####Textile Engineer: MARY SOTELO ([id number])[facility])[address] [place] [address] CALCIUM IONIZED 4.10 mg/dL Low 4.30-5.20 [facility] Comment on above: Performed By: #### L [id number] ####Textile Engineer: MARY SOTELO ([phone])[address] PH, IONIZED CALCIUM 7.51 High 7.31-7.46 [facility] Comment on above: Performed By: #### L [id number] ####Textile Engineer: MARY SOETLO ([id number])[facility])[address] [place] [address] CBC WITH AUTO DIFFERENTIALon 07-29-2024 Basophils (Bld) [#/Vol] 0.0 10*3/uL Normal 0.0-0.2 [facility] Comment on above: Performed By: #### L [id number] ####Textile Engineer: MARY SOTELO ([phone])[facility])[address] [place] [address] Basophils/100 WBC (Bld) 0.0 % Normal 0.0-2.0 [facility] Comment on above: Performed By: #### L [id number] ####Textile Engineer: MARY SOTELO ([phone])[facility])[address] [place] [address] Eosinophils (Bld) [#/Vol] 0.0 10*3/uL Normal 0.0-0.5 [facility] Comment on above: Performed By: #### L [id number] ####Textile Engineer: MARY SOTELO ([phone])[facility])[address] [place] [address] Eosinophils/100 WBC (Bld) 0.0 % Normal 0.0-6.0 [facility] Comment on above: Performed By: #### L [id number] ####Textile Engineer: MARY SOTELO ([phone])[address] Erythrocyte distribution width (RBC) [Ratio] 15.2 % High 11.5-15.0 [facility] Comment on above: Performed By: #### L [id number] ####Textile Engineer: MARY SOTELO ([phone])[address] Hematocrit (Bld) [Volume fraction] 23.1 % Low 35.0-47.0 [facility] Comment on above: Performed By: #### L [id number] ####Textile Engineer: MARY SOTELO ([phone])[facility])[address] [place] [address] Hemoglobin (Bld) [Mass/Vol] 7.7 g/dL Low 11.7-16.0 [facility] Comment on above: Performed By: #### L [id number] ####Textile Engineer: MARY SOTELO ([phone])[address] IMMATURE GRANS % 0.5 % Normal 0.0-2.0 [facility] Comment on above: Performed By: #### L [id number] ####Textile Engineer: MARY SOTELO ([phone])[facility])[address] [place] [address] IMMATURE GRANS ABSOLUTE 0.0 10*3/uL Normal <0.1 [facility] Comment on above: Performed By: #### L [id number] ####Textile Engineer: MARY SOTELO ([phone])[facility])[address] [place] [address] Lymphocytes (Bld) [#/Vol] 0.5 10*3/uL Low 1.0-4.3 [facility] Comment on above: Performed By: #### L [id number] ####Textile Engineer: MARY SOTELO ([phone])[address] Lymphocytes/100 WBC (Bld) 6.9 % Low 15.0-45.0 [facility] Comment on above: Performed By: #### L [id number] ####Textile Engineer: MARY SOTELO ([phone])[facility])[address] [place] [address] MCH (RBC) [Entitic mass] 28.6 pg Normal 26.0-34.0 [facility] Comment on above: Performed By: #### L [id number] ####Textile Engineer: MARY SOTELO ([phone])[facility])[address] [place] [address] MCHC 33.3 % Normal 30.5-36.0 [facility] Comment on above: Performed By: #### L [id number] ####Textile Engineer: MARY SOTELO ([phone])[facility])[address] [place] [address] MCV (RBC) [Entitic vol] 85.9 fL Normal 77.0-99.0 [facility] Comment on above: Performed By: #### L [id number] ####Textile Engineer: MARY SOTELO ([phone])[facility])[address] [place] [address] Monocytes (Bld) [#/Vol] 0.4 10*3/uL Normal 0.0-0.9 [facility] Comment on above: Performed By: #### L [id number] ####Textile Engineer: MARY SOTELO ([phone])[facility] ([facility])[address] [place] [address] Monocytes/100 WBC (Bld) 6.5 % Normal 5.0-13.0 [facility] Comment on above: Performed By: #### L [id number] ####Textile Engineer: MARY SOTELO ([phone])[facility] ([facility])[address] [place] [address] NEUTROPHILS ABSOLUTE 5.6 10*3/uL Normal 1.8-7.5 [facility] Comment on above: Performed By: #### L [id number] ####Textile Engineer: MARY SOTELO ([phone])[facility] ([facility])[address] [place] [address] Neutrophils/100 WBC (Bld) 86.1 % High 38.0-82.0 [facility] Comment on above: Performed By: #### L [id number] ####Textile Engineer: MARY SOTELO ([phone])[facility] ([facility])[address] [place] [address] NRBC 0.0 /100 WBCs Normal 0.0-2.0 [facility] Comment on above: Performed By: #### L [id number] ####Textile Engineer: MARY SOTELO ([phone])[facility] ([facility])[address] [place] [address] Platelet mean volume (Bld) [Entitic vol] 11.0 fL Normal 9.0-12.7 [facility] Comment on above: Performed By: #### L [id number] ####Textile Engineer: MARY SOTELO ([id number])[facility] ([facility])[address] [place] [address] Platelets (Bld) [#/Vol] 141 10*3/uL Normal 140-440 [facility] Comment on above: Performed By: #### L [id number] ####Textile Engineer: MARY SOTELO ([phone])[facility] ([facility])[address] [place] [address] RBC (Bld) [#/Vol] 2.69 10*6/uL Low 3.80-5.20 [facility] Comment on above: Performed By: #### L [id number] ####Textile Engineer: MARY SOTELO ([id number])[facility] ([facility])[address] [place] [address] WBC (Bld) [#/Vol] 6.5 10*3/uL Normal 3.6-10.7 [facility] Comment on above: Performed By: #### L [id number] ####Textile Engineer: MARY SOTELO ([phone])[facility] ([facility])[address] [place] [address] CKon 07-29-2024 CK [Catalytic activity/Vol] 564 U/L High 30-170 [facility] Comment on above: Performed By: #### L AB19, LAB62 ####Textile Engineer: MARY SOTELO ([id number])[facility] ([facility])[address] [place] [address] ECG 12-LEADon 07-29-2024 ECG 12-LEAD IMPRESSION: Sinus rhythm Multiple ventricular premature complexes Anterior infarct, old Electronically Signed On 07-29-2024 20:06:11 EDT by Eladio Valle [facility] GLUCOSE, RANDOMon 07-29-2024 Glucose [Mass/Vol] 163 mg/dL High 70-100 [facility] Comment on above: Performed By: #### L [id number] ####Textile Engineer: MARY SOTELO ([phone])[facility] ([facility])[address] [place] [address] IDNon 07-29-2024 IDN Normal [facility] Nursing Noteon 07-29-2024 Nursing Note Patient returned fro m IR. Normal [facility] Nursing Note Normal [facility] Nursing Note To IR for tunneled v as cath. Normal [facility] Nursing Note Dr. Mahajan came by an d said EEG could be discontinued. Normal [facility] Nursing Note Called IR. Patient will get her tunneled catheter this afternoon. Normal [facility] Nursing Note Dr. Heath and gisselle palacios here. They were notified of issues with vas cath. They will talk to Renal to decide what to do. Repostion line vs cath roel vs HD? Normal [facility] Nursing Note CRRT alarming extremely negative again. Blood returned. Set disposed. Vas cath lines flushed. Normal [facility] Nursing Note CRRT alarming extremely negative pressure. Lines clamped and disconnected. Vas cath ports flushed again. CRRT restarted. Normal [facility] Nursing Note CRRT alarming extremely negative. Lines clamped. Vas cath ports flushed. Red line still pulls back easier. Will keep return line attached to red port. Normal [facility] Nursing Note CRRT alarming extremely negative. Lines clamped. Vas cath ports flushed. Red port pulls back easier. Will attach return line to red port. CRRT restarted. Normal [facility] Nursing Note Cath roel removed fro m vas cath. Both ports flush easily but neither draw back easily. CRRT started. Normal [facility] Nursing Note CRRT paused d/t acce ss line clotting at approximately 4993-2614. Trouble shooting attempted. Cath flow ordered and given at 0646. Normal [facility] Progress Noteon 07-29-2024 Progress Note 07/29/24 1249 Wean Screen Safety Screen Spontaneous Breathing Trial (SBT - RT) (sedation not weaned or turned off) No SBT done. Normal [facility] Progress Note Normal [facility] Progress Note Normal [facility] Progress Note OCCUPATIONAL THERAPY [facility] Name/MRN: Sandy Deng ([id number]) Date: 07/29/2024 Pt remains on strict bed rest. Will continue to follow. Jamey Muro OT [facility] Progress Note Normal [facility] Progress Note Normal [facility] Progress Note Normal [facility] RENAL FUNCTION PANELon 07-29 Albumin [Mass/Vol] 2.0 g/dL Low 3.5-5.0 [facility] Comment on above: Performed By: #### L [id number] ####Textile Engineer: MARY SOTELO ([phone])[facility])[address] [place] [address] Anion gap [Moles/Vol] 2 mmol/L Low 3-[address] [facility] Comment on above: Performed By: #### L [id number] ####Textile Engineer: MARY SOTELO ([phone])[facility] [facility])[address] [place] [address] Calcium [Mass/Vol] 8.6 mg/dL Normal 8.4-10.4 [facility] Comment on above: Performed By: #### L [id number] ####Textile Engineer: MARY SOTELO ([phone])[facility])[address] [place] [address] Chloride [Moles/Vol] 106 mmol/L Normal 98-107 [facility] Comment on above: Performed By: #### L AB19 ####Textile Engineer: MARY SOTELO ([phone])[facility] ([facility])[address] [place] [address] CO2 [Moles/Vol] 26 mmol/L Normal 22-30 [facility] Comment on above: Performed By: #### L AB19 ####Textile Engineer: MARY SOTELO ([phone])[facility])[address] [place] [address] Creatinine [Mass/Vol] 1.94 mg/dL High 0.52-1.[address] [facility] Comment on above: Performed By: #### L AB19 ####Textile Engineer: MARY SOTELO ([phone])[facility])[address] [place] [address] [place] GLOMERULAR FILTRATION RATE ML/MIN/1.73 SQ M.PREDICTED 28.5 mL/min/1.73m*2 Low >60.0 [facility] Comment on above: Result Comment: Calc ulation based on the Chronic Kidney Disease Epidemiology Collaboration (CKD-EPI) equation refit without adjustment for race Performed By: #### L AB19 ####Textile Engineer: MARY SOTELO ([phone])[facility] ([facility])[address] [place] [address] Glucose [Mass/Vol] 33 mg/dL Critically low 70-100 [facility] Comment on above: Performed By: #### L AB19 ####Textile Engineer: MARY SOTELO ([phone])[facility] ([facility])[address] [place] [address] Phosphate [Mass/Vol] 4.4 mg/dL Normal 2.5-4.5 [facility] Comment on above: Performed By: #### L AB19 ####Textile Engineer: MARY SOTELO ([phone])[facility] ([facility])[address] [place] [address] Potassium [Moles/Vol] 5.0 mmol/L Normal 3.5-5.[address] [facility] Comment on above: Performed By: #### L AB19 ####Textile Engineer: MARY SOTELO ([phone])[facility] ([facility])[address] [place] [address] Sodium [Moles/Vol] 133 mmol/L Low 135-145 [facility] Comment on above: Performed By: #### L AB19 ####Textile Engineer: MARY SOTELO ([id number])[facility] ([facility])[address] [place] [address] Urea nitrogen [Mass/Vol] 41 mg/dL High 7-17 [facility] Comment on above: Performed By: #### L AB19 ####Textile Engineer: MARY SOTELO ([phone])[facility] ([facility])[address] [place] [address] [place] Albumin [Mass/Vol] 1.9 g/dL Low 3.5-5.0 [facility] Comment on above: Performed By: #### L AB19, LAB62 ####Textile Engineer: MARY SOTELO ([phone])[facility] ([facility])[address] [place] [address] [place] Anion gap [Moles/Vol] 2 mmol/L Low 3-13 [facility] Comment on above: Performed By: #### L AB19, LAB62 ####Textile Engineer: MARY SOTELO ([phone])[facility] ([facility])[address] [place] [address] Calcium [Mass/Vol] 7.6 mg/dL Low 8.4-10.4 [facility] Comment on above: Performed By: #### L AB19, LAB62 ####Textile Engineer: MARY SOTELO ([phone])[facility] [place] [address] Chloride [Moles/Vol] 104 mmol/L Normal 98-107 [facility] Comment on above: Performed By: #### L AB19, LAB62 ####Textile Engineer: MARY SOTELO ([phone])[facility])[address] [place] [address] CO2 [Moles/Vol] 26 mmol/L Normal 22-30 [facility] Comment on above: Performed By: #### L AB19, LAB62 ####Textile Engineer: MARY SOTELO ([phone])[facility] ([facility])[address] [place] [address] Creatinine [Mass/Vol] 1.59 mg/dL High 0.52-1.[address] [facility] Comment on above: Performed By: #### L AB19, LAB62 ####Textile Engineer: MARY SOTELO ([phone])[facility])[address] [place] [address] GLOMERULAR FILTRATION RATE ML/MIN/1.73 SQ M.PREDICTED 36.1 mL/min/1.73m*2 Low >60.0 [facility] Comment on above: Result Comment: Calc ulation based on the Chronic Kidney Disease Epidemiology Collaboration (CKD-EPI) equation refit without adjustment for race Performed By: #### L AB19, LAB62 ####Textile Engineer: MARY SOTELO ([phone])[facility] ([facility])[address] [place] [address] [place] Glucose [Mass/Vol] 145 mg/dL High 70-100 [facility] Comment on above: Performed By: #### L AB19, LAB62 ####Textile Engineer: MARY SOTELO ([phone])[facility] ([facility])[address] [place] [address] Phosphate [Mass/Vol] 3.7 mg/dL Normal 2.5-4.5 [facility] Comment on above: Performed By: #### L AB19, LAB62 ####Textile Engineer: MARY SOTELO ([phone])[facility] ([facility])[address] [place] [address] Potassium [Moles/Vol] 4.9 mmol/L Normal 3.5-5.1 [facility] Comment on above: Performed By: #### L AB19, LAB62 ####Textile Engineer: MARY SOTELO ([phone])[facility] ([facility])[address] [place] [address] [place] Sodium [Moles/Vol] 131 mmol/L Low 135-145 [facility] Comment on above: Performed By: #### L AB19, LAB62 ####Textile Engineer: MARY SOTELO ([phone])[facility] ([facility])[address] [place] [address] [place] Urea nitrogen [Mass/Vol] 35 mg/dL High 7-17 [facility] Comment on above: Performed By: #### L AB19, LAB62 ####Textile Engineer: MARY SOTELO ([phone])[facility] ([facility])[address] [place] [address] [place] Albumin [Mass/Vol] 2.0 g/dL Low 3.5-5.0 [facility] Comment on above: Performed By: #### L AB19 ####Textile Engineer: MARY SOTELO ([phone])[facility] ([facility])[address] [place] [address] [place] Anion gap [Moles/Vol] 1 mmol/L Low 3-13 [facility] Comment on above: Performed By: #### L AB19 ####Textile Engineer: MARY SOTELO ([phone])[facility])[address] [place] [address] Calcium [Mass/Vol] 7.5 mg/dL Low 8.4-10.4 [facility] Comment on above: Performed By: #### L AB19 ####Textile Engineer: MARY SOTELO ([phone])[facility])[address] [place] [address] Chloride [Moles/Vol] 104 mmol/L Normal 98-107 [facility] Comment on above: Performed By: #### L AB19 ####Textile Engineer: MARY SOTELO ([phone])[facility] ([facility])[address] [place] [address] CO2 [Moles/Vol] 25 mmol/L Normal 22-30 [facility] Comment on above: Performed By: #### L AB19 ####Textile Engineer: MARY SOTELO ([phone])[facility] ([facility])[address] [place] [address] Creatinine [Mass/Vol] 1.32 mg/dL High 0.52-1.04 [facility] Comment on above: Performed By: #### L AB19 ####Textile Engineer: MARY SOTELO ([phone])[facility] ([facility])[address] [place] [address] [place] GLOMERULAR FILTRATION RATE ML/MIN/1.73 SQ M.PREDICTED 45.2 mL/min/1.73m*2 Low >60.0 [facility] Comment on above: Result Comment: Calc ulation based on the Chronic Kidney Disease Epidemiology Collaboration (CKD-EPI) equation refit without adjustment for race Performed By: #### L AB19 ####Textile Engineer: MARY SOTELO ([phone])[facility] ([facility])[address] [place] [address] [place] Glucose [Mass/Vol] 206 mg/dL High 70-100 [facility] Comment on above: Performed By: #### L AB19 ####Textile Engineer: MARY SOTELO ([phone])[facility] ([facility])[address] [place] [address] Phosphate [Mass/Vol] 3.2 mg/dL Normal 2.5-4.5 [facility] Comment on above: Performed By: #### L AB19 ####Textile Engineer: MARY SOTELO ([phone])[facility])[address] [place] [address] Potassium [Moles/Vol] 5.2 mmol/L High 3.5-5.[address] [facility] Comment on above: Performed By: #### L AB19 ####Textile Engineer: MARY SOTELO ([phone])[facility])[address] [place] [address] Sodium [Moles/Vol] 131 mmol/L Low 135-145 [facility] Comment on above: Performed By: #### L AB19 ####Textile Engineer: MARY SOTELO ([phone])[facility])[address] [place] [address] Urea nitrogen [Mass/Vol] 28 mg/dL High 7-17 [facility] Comment on above: Performed By: #### L AB19 ####Textile Engineer: MARY SOTELO ([phone])[facility] ([facility])[address] [place] [address] Respiratory Cultureon 2023 RESPC Normal [facility] Comment on above: Performed By: #### M 100.2400, M100.2000 ####[facility] [id number] [place], [address] XR CHEST 1 VIEWon 07-29-2024 XR CHEST 1 VIEW Normal [facility] BASIC METABOLIC PANELon 07-05 Anion gap [Moles/Vol] 4 mmol/L Normal 3-[address] [facility] Comment on above: Performed By: #### L AB103, [id number], LAB15 ####Textile Engineer: MARY SOTELO ([id number])[facility])[address] [place] [address] [place] Calcium [Mass/Vol] 7.4 mg/dL Low 8.4-10.4 [facility] Comment on above: Performed By: #### L AB103, [id number], LAB15 ####Textile Engineer: MARY SOTELO ([id number])[facility] ([facility])[address] [place] [address] [place] Chloride [Moles/Vol] 104 mmol/L Normal 98-107 [facility] Comment on above: Performed By: #### L AB103, [id number], LAB15 ####Textile Engineer: MARY SOTELO ([id number])[facility] ([facility])[address] [place] [address] CO2 [Moles/Vol] 23 mmol/L Normal 22-30 [facility] Comment on above: Performed By: #### Dora AB103, [id number], LAB15 ####Textile Engineer: MARY SOTELO ([phone])[facility] ([facility])[address] [place] [address] Creatinine [Mass/Vol] 1.80 mg/dL High 0.52-1.[address] [facility] Comment on above: Performed By: #### L AB103, [id number], LAB15 ####Textile Engineer: MARY SOTELO ([id number])[facility] ([facility])[address] [place] [address] [place] GLOMERULAR FILTRATION RATE ML/MIN/1.73 SQ M.PREDICTED 31.1 mL/min/1.73m*2 Low >60.0 [facility] Comment on above: Result Comment: Calc ulation based on the Chronic Kidney Disease Epidemiology Collaboration (CKD-EPI) equation refit without adjustment for race Performed By: #### L AB103, [id number], LAB15 ####Textile Engineer: MARY SOTELO ([phone])[facility] ([facility])[address] [place] [address] [place] Glucose [Mass/Vol] 143 mg/dL High 70-100 [facility] Comment on above: Performed By: #### L AB103, [id number], LAB15 ####Textile Engineer: MARY SOTELO ([phone])[facility])[address] [place] [address] Potassium [Moles/Vol] 4.5 mmol/L Normal 3.5-5.1 [facility] Comment on above: Performed By: #### L AB103, [id number], LAB15 ####Textile Engineer: MARY SOTELO ([phone])[facility])[address] [place] [address] Sodium [Moles/Vol] 131 mmol/L Low 135-145 [facility] Comment on above: Performed By: #### L AB103, [id number], LAB15 ####Textile Engineer: MARY SOTELO ([phone])[facility])[address] [place] [address] Urea nitrogen [Mass/Vol] 34 mg/dL High 7-17 [facility] Comment on above: Performed By: #### L AB103, [id number], LAB15 ####Textile Engineer: MARY SOTELO ([phone])[facility] ([facility])[address] [place] [address] BLOOD GAS ARTERIALon 07-28- 024 Base excess Calc (Bld) [Moles/Vol] -1.2000 mmol/L Normal -3.0-3.0 [facility] Comment on above: Performed By: #### L AB76 ####Textile Engineer: MARY SOTELO ([phone])[facility] ([facility])[address] [place] [address] [place] CO2 [Moles/Vol] 24.6 mmol/L Normal 23.0-27.0 [facility] Comment on above: Performed By: #### L AB76 ####Textile Engineer: MARY SOTELO ([phone])[facility])[address] [place] [address] HCO3 (Bld) [Moles/Vol] 23.4 mmol/L Normal 21.0-25.0 [facility] Comment on above: Performed By: #### L AB76 ####Textile Engineer: MARY SOTELO ([phone])[facility])[address] [place] [address] Hemoglobin (Bld) [Mass/Vol] 9.2 g/dL Normal Screen only [facility] Comment on above: Performed By: #### L AB76 ####Textile Engineer: MARY SOTELO ([phone])[facility] ([facility])[address] [place] [address] OXYGEN SATURATION (%) IN ARTERIAL BLOOD 98.1 % Normal 95.0-100.0 [facility] Comment on above: Performed By: #### L AB76 ####Textile Engineer: MARY SOTELO ([id number])[facility] ([facility])[address] [place] [address] PCO2 ARTERIAL 38.6 mm Hg Normal >35.0-<45.0 [facility] Comment on above: Performed By: #### L AB76 ####Textile Engineer: MARY SOTELO ([id number])[facility] ([facility])[address] [place] [address] PH ARTERIAL 7.401 Normal 7.350-7.450 [facility] Comment on above: Performed By: #### L AB76 ####Textile Engineer: MARY SOTELO ([phone])[facility] ([facility])[address] [place] [address] PO2 ARTERIAL 120.0 mm Hg High 80.0-100.0 [facility] Comment on above: Performed By: #### L AB76 ####Textile Engineer: MARY SOTELO ([phone])[facility] ([facility])[address] [place] [address] SOURCE OF OXYGEN Vent [facility] Comment on above: Performed By: #### L AB76 ####Textile Engineer: MARY SOTELO ([phone])[facility] ([facility])[address] [place] [address] CALCIUM, IONIZEDon 4 CALCIUM IONIZED 4.10 mg/dL Low 4.30-5.[facility] Comment on above: Performed By: #### L AB54 ####Textile Engineer: MARY SOTELO ([phone])[facility] ([facility])[address] [place] [address] [place] PH, IONIZED CALCIUM 7.52 High 7.31-7.46 [facility] Comment on above: Performed By: #### L AB54 ####Textile Engineer: MARY SOTELO ([phone])[facility] ([facility])[address] [place] [address] [place] CALCIUM IONIZED 4.30 mg/dL Normal 4.30-5.[facility] Comment on above: Performed By: #### L AB54 ####Textile Engineer: MARY SOTELO ([phone])[facility] ([facility])[address] [place] [address] [place] PH, IONIZED CALCIUM 7.46 Normal 7.31-7.46 [facility] Comment on above: Performed By: #### L AB54 ####Textile Engineer: MARY SOTELO ([phone])[facility] ([facility])[address] [place] [address] [place] CALCIUM IONIZED 4.20 mg/dL Low 4.30-5.[facility] Comment on above: Performed By: #### L AB54 ####Textile Engineer: MARY SOTELO ([phone])[facility] ([facility])[address] [place] [address] PH, IONIZED CALCIUM 7.38 Normal 7.31-7.46 [facility] Comment on above: Performed By: #### L AB54 ####Textile Engineer: MARY SOTELO ([phone])[facility] ([facility])[address] [place] [address] [place] CALCIUM IONIZED 4.10 mg/dL Low 4.30-5.[facility] Comment on above: Performed By: #### L AB54 ####Textile Engineer: MARY SOTELO ([phone])[facility] ([facility])[address] [place] [address] [place] PH, IONIZED CALCIUM 7.44 Normal 7.31-7.46 [facility] Comment on above: Performed By: #### L AB54 ####Textile Engineer: MARY SOTELO ([phone])[facility])[address] [place] [address] CARECOORDon 07-28-2024 CARECOORD Normal [facility] CBC WITH AUTO DIFFERENTIALon 07-28-2024 Basophils (Bld) [#/Vol] 0.0 10*3/uL Normal 0.0-0.2 [facility] Comment on above: Performed By: #### L [id number] ####Textile Engineer: MARY SOTELO ([phone])[facility])[address] [place] [address] Basophils/100 WBC (Bld) 0.1 % Normal 0.0-2.0 [facility] Comment on above: Performed By: #### L [id number] ####Textile Engineer: MARY SOTELO ([phone])[facility])[address] [place] [address] Eosinophils (Bld) [#/Vol] 0.0 10*3/uL Normal 0.0-0.5 [facility] Comment on above: Performed By: #### L [id number] ####Textile Engineer: MARY SOTELO ([phone])[facility])[address] [place] [address] Eosinophils/100 WBC (Bld) 0.0 % Normal 0.0-6.0 [facility] Comment on above: Performed By: #### L [id number] ####Textile Engineer: MARY SOTELO ([phone])[facility])[address] [place] [address] Erythrocyte distribution width (RBC) [Ratio] 15.0 % Normal 11.5-15.0 [facility] Comment on above: Performed By: #### L [id number] ####Textile Engineer: MARY SOTELO ([phone])[facility])[address] [place] [address] Hematocrit (Bld) [Volume fraction] 25.8 % Low 35.0-47.0 [facility] Comment on above: Performed By: #### L [id number] ####Textile Engineer: MARY SOTELO ([phone])[facility])[address] [place] [address] Hemoglobin (Bld) [Mass/Vol] 8.8 g/dL Low 11.7-16.0 [facility] Comment on above: Performed By: #### L [id number] ####Textile Engineer: MARY SOTELO ([phone])[facility])[address] [place] [address] IMMATURE GRANS % 0.4 % Normal 0.0-2.0 [facility] Comment on above: Performed By: #### L [id number] ####Textile Engineer: MARY SOTELO ([phone])[facility])[address] [place] [address] IMMATURE GRANS ABSOLUTE 0.1 10*3/uL High <0.1 [facility] Comment on above: Performed By: #### L [id number] ####Textile Engineer: MARY SOTELO ([phone])[facility])[address] [place] [address] Lymphocytes (Bld) [#/Vol] 0.3 10*3/uL Low 1.0-4.3 [facility] Comment on above: Performed By: #### L [id number] ####Textile Engineer: MARY SOTELO ([phone])[facility])[address] [place] [address] Lymphocytes/100 WBC (Bld) 2.9 % Low 15.0-45.0 [facility] Comment on above: Performed By: #### L [id number] ####Textile Engineer: MARY SOTELO ([phone])[facility])[address] [place] [address] MCH (RBC) [Entitic mass] 28.9 pg Normal 26.0-34.0 [facility] Comment on above: Performed By: #### L [id number] ####Textile Engineer: MARY SOTELO ([phone])[facility])[address] [place] [address] MCHC 34.1 % Normal 30.5-36.0 [facility] Comment on above: Performed By: #### L [id number] ####Textile Engineer: MARY SOTELO ([phone])[facility])[address] [place] [address] MCV (RBC) [Entitic vol] 84.6 fL Normal 77.0-99.0 [facility] Comment on above: Performed By: #### L [id number] ####Textile Engineer: MARY SOTELO ([phone])[address] Monocytes (Bld) [#/Vol] 0.4 10*3/uL Normal 0.0-0.9 [facility] Comment on above: Performed By: #### L [id number] ####Textile Engineer: MARY SOTELO ([phone])[facility])[address] [place] [address] Monocytes/100 WBC (Bld) 3.6 % Low 5.0-13.0 [facility] Comment on above: Performed By: #### L [id number] ####Textile Engineer: MARY SOTELO ([phone])[facility])[address] [place] [address] NEUTROPHILS ABSOLUTE 10.7 10*3/uL High 1.8-7.5 [facility] Comment on above: Performed By: #### L [id number] ####Textile Engineer: MARY SOTELO ([phone])[facility])[address] [place] [address] Neutrophils/100 WBC (Bld) 93.0 % High 38.0-82.0 [facility] Comment on above: Performed By: #### L [id number] ####Textile Engineer: MARY [id number])[facility] ([facility])[address] [place] [address] NRBC 0.0 /100 WBCs Normal 0.0-2.0 [facility] Comment on above: Performed By: #### L [id number] ####Textile Engineer: MARY SOTELO ([phone])[facility])[address] [place] [address] Platelet mean volume (Bld) [Entitic vol] 10.5 fL Normal 9.0-12.7 [facility] Comment on above: Performed By: #### L [id number] ####Textile Engineer: MARY SOTELO ([phone])[facility])[address] [place] [address] Platelets (Bld) [#/Vol] 160 10*3/uL Normal 140-440 [facility] Comment on above: Performed By: #### L [id number] ####Textile Engineer: MARY SOTELO ([phone])[facility] ([facility])[address] [place] [address] RBC (Bld) [#/Vol] 3.05 10*6/uL Low 3.80-5.20 [facility] Comment on above: Performed By: #### L [id number] ####Textile Engineer: MARY SOTELO ([phone])[facility])[address] [place] [address] WBC (Bld) [#/Vol] 11.5 10*3/uL High 3.6-10.7 [facility] Comment on above: Performed By: #### L [id number] ####Textile Engineer: MARY SOTELO ([phone])[facility])[address] [place] [address] COMPREHENSIVE METABOLIC PANE [place] 07-28-2024 Albumin [Mass/Vol] 2.2 g/dL Low 3.5-5.0 [facility] Comment on above: Performed By: #### L [id number], [id number], LAB17 ####Textile Engineer: MARY SOTELO ([id number])[facility])[address] [place] [address] [place] ALP [Catalytic activity/Vol] 78 U/L Normal 38-126 [facility] Comment on above: Performed By: #### L [id number], [id number], LAB17 ####Textile Engineer: MARY SOTELO ([id number])[facility] ([facility])[address] [place] [address] [place] ALT [Catalytic activity/Vol] 23 U/L Normal 0-34 [facility] Comment on above: Performed By: #### L [id number], [id number], LAB17 ####Textile Engineer: MARY SOTELO ([id number])[facility] ([facility])[address] [place] [address] Anion gap [Moles/Vol] 4 mmol/L Normal 3-13 [facility] Comment on above: Performed By: #### Dora [id number], [id number], LAB17 ####Textile Engineer: MARY SOTELO ([phone])[facility] ([facility])[address] [place] [address] AST [Catalytic activity/Vol] 44 U/L Normal 15-46 [facility] [facility] Comment on above: Performed By: #### Dora AB103, [id number], LAB17 ####Textile Engineer: MARY SOTELO ([phone])[facility] ([facility])[address] [place] [address] Bilirubin [Mass/Vol] 0.5 mg/dL Normal 0.2-1.3 [facility] Comment on above: Performed By: #### L AB103, [id number], LAB17 ####Textile Engineer: MARY SOTELO ([phone])[facility] ([facility])[address] [place] [address] [place] Calcium [Mass/Vol] 7.3 mg/dL Low 8.4-10.4 [facility] Comment on above: Performed By: #### L AB103, [id number], LAB17 ####Textile Engineer: MARY SOTELO ([phone])[facility] ([facility])[address] [place] [address] [place] Chloride [Moles/Vol] 102 mmol/L Normal 98-107 [facility] Comment on above: Performed By: #### L AB103, [id number], LAB17 ####Textile Engineer: MARY SOTELO ([phone])[facility] ([facility])[address] [place] [address] CO2 [Moles/Vol] 24 mmol/L Normal 22-30 [facility] Comment on above: Performed By: #### L AB103, [id number], LAB17 ####Textile Engineer: MARY SOTELO ([phone])[facility] ([facility])[address] [place] [address] Creatinine [Mass/Vol] 1.50 mg/dL High 0.52-1.[address] [facility] Comment on above: Performed By: #### L AB103, [id number], LAB17 ####Textile Engineer: MARY SOTELO ([phone])[facility] ([facility])[address] [place] [address] GLOMERULAR FILTRATION RATE ML/MIN/1.73 SQ M.PREDICTED 38.8 mL/min/1.73m*2 Low >60.0 [facility] Comment on above: Result Comment: Calc ulation based on the Chronic Kidney Disease Epidemiology Collaboration (CKD-EPI) equation refit without adjustment for race Performed By: #### L AB103, [id number], LAB17 ####Textile Engineer: MARY SOTELO ([id number])[facility] ([facility])[address] [place] [address] Glucose [Mass/Vol] 149 mg/dL High 70-100 [facility] Comment on above: Performed By: #### L AB103, [id number], LAB17 ####Textile Engineer: MARY SOTELO ([phone])[facility])[address] [place] [address] Potassium [Moles/Vol] 4.5 mmol/L Normal 3.5-5.[address] [facility] Comment on above: Performed By: #### L AB103, [id number], LAB17 ####Textile Engineer: MARY [id number])[facility] [place] [address] Protein [Mass/Vol] 4.6 g/dL Low 6.3-8.2 [facility] Comment on above: Performed By: #### L AB103, [id number], LAB17 ####Textile Engineer: MARY SOTELO ([phone])[facility])[address] [place] [address] Sodium [Moles/Vol] 130 mmol/L Low 135-145 [facility] Comment on above: Performed By: #### L AB103, [id number], LAB17 ####Textile Engineer: MARY SOTELO ([phone])[facility])[address] [place] [address] Urea nitrogen [Mass/Vol] 31 mg/dL High 7-17 [facility] Comment on above: Performed By: #### L AB103, [id number], LAB17 ####Textile Engineer: MARY SOTELO ([phone])[facility] ([facility])[address] [place] [address] Consulton 07-28-2024 Consult Normal [facility] ECG 12-LEADon 07-28-2024 ECG 12-LEAD IMPRESSION: Sinus rhythm Multiple ventricular premature complexes Anterior infarct, old Borderline T abnormalities Electronically Signed On 07-28-2024 12:41:46 EDT by Keisha Acosta Normal [facility] IDNon 07-28-2024 IDAnia Normal [facility] MAGNESIUMon 07-28-2024 Magnesium [Mass/Vol] 2.7 mg/dL High 1.6-2.3 [facility] Comment on above: Performed By: #### L AB103, [id number], LAB17 ####Textile Engineer: MARY SOTELO ([phone])[facility])[address] [place] [address] Magnesium [Mass/Vol] 2.2 mg/dL Normal 1.6-2.3 [facility] Comment on above: Performed By: #### L AB103, [id number], LAB15 ####Textile Engineer: MARY SOTELO ([phone])[facility] ([facility])[address] [place] [address] [place] PHOSPHORUSon 07-28-2024 Phosphate [Mass/Vol] 3.5 mg/dL Normal 2.5-4.5 [facility] Comment on above: Performed By: #### L AB103, [id number], LAB17 ####Textile Engineer: MARY SOTELO ([phone])[facility] ([facility])[address] [place] [address] Phosphate [Mass/Vol] 3.6 mg/dL Normal 2.5-4.5 [facility] Comment on above: Performed By: #### L AB103, [id number], LAB15 ####Textile Engineer: MARY SOTELO ([phone])[facility] ([facility])[address] [place] [address] Progress Noteon 07-28-[address] [facility] [facility] Progress Note [facility] RENAL FUNCTION PANELon 07-28 Albumin [Mass/Vol] 2.2 g/dL Low 3.5-5.0 [facility] Comment on above: Performed By: #### L AB19 ####Textile Engineer: MARY SOTELO ([phone])[facility] ([facility])[address] [place] [address] Anion gap [Moles/Vol] 0 mmol/L Low 3-13 [facility] Comment on above: Performed By: #### L AB19 ####Textile Engineer: MARY SOTELO ([phone])[facility] ([facility])[address] [place] [address] Calcium [Mass/Vol] 7.4 mg/dL Low 8.4-10.4 [facility] Comment on above: Performed By: #### L AB19 ####Textile Engineer: MARY SOTELO ([phone])[facility] ([facility])[address] [place] [address] Chloride [Moles/Vol] 104 mmol/L Normal 98-107 [facility] Comment on above: Performed By: #### L AB19 ####Textile Engineer: MARY SOTELO ([phone])[facility])[address] [place] [address] CO2 [Moles/Vol] 26 mmol/L Normal 22-30 [facility] Comment on above: Performed By: #### L AB19 ####Textile Engineer: MARY SOTELO ([phone])[facility])[address] [place] [address] Creatinine [Mass/Vol] 1.26 mg/dL High 0.52-1.[address] [facility] Comment on above: Performed By: #### L AB19 ####Textile Engineer: MARY SOTELO ([phone])[facility])[address] [place] [address] GLOMERULAR FILTRATION RATE ML/MIN/1.73 SQ M.PREDICTED 47.8 mL/min/1.73m*2 Low >60.0 [facility] Comment on above: Result Comment: Calc ulation based on the Chronic Kidney Disease Epidemiology Collaboration (CKD-EPI) equation refit without adjustment for race Performed By: #### L AB19 ####Textile Engineer: MARY SOTELO ([phone])[facility])[address] [place] [address] Glucose [Mass/Vol] 123 mg/dL High 70-100 [facility] Comment on above: Performed By: #### L AB19 ####Textile Engineer: MARY SOTELO ([phone])[facility])[address] [place] [address] [place] Phosphate [Mass/Vol] 2.4 mg/dL Low 2.5-4.5 [facility] Comment on above: Performed By: #### L AB19 ####Textile Engineer: MARY SOTELO ([phone])[facility])[address] [place] [address] Potassium [Moles/Vol] 4.6 mmol/L Normal 3.5-5.1 [facility] Comment on above: Performed By: #### L AB19 ####Textile Engineer: MARY SOTELO ([phone])[facility] ([facility])[address] [place] [address] Sodium [Moles/Vol] 130 mmol/L Low 135-145 [facility] Comment on above: Performed By: #### L AB19 ####Textile Engineer: MARY SOTELO ([phone])[facility] ([facility])[address] [place] [address] Urea nitrogen [Mass/Vol] 28 mg/dL High 7-17 [facility] Comment on above: Performed By: #### L AB19 ####Textile Engineer: MARY SOTELO ([phone])[facility] ([facility])[address] [place] [address] Albumin [Mass/Vol] 2.1 g/dL Low 3.5-5.0 [facility] Comment on above: Performed By: #### L AB19 ####Textile Engineer: MARY SOTELO ([id number])[facility] ([facility])[address] [place] [address] Anion gap [Moles/Vol] 3 mmol/L Normal 3-13 [facility] Comment on above: Performed By: #### L AB19 ####Textile Engineer: MARY SOTELO ([id number])[facility] ([facility])[address] [place] [address] Calcium [Mass/Vol] 7.8 mg/dL Low 8.4-10.4 [facility] Comment on above: Performed By: #### L AB19 ####Textile Engineer: MARY SOTELO ([id number])[facility] ([facility])[address] [place] [address] [place] Chloride [Moles/Vol] 103 mmol/L Normal 98-107 [facility] Comment on above: Performed By: #### L AB19 ####Textile Engineer: MARY SOTELO ([id number])[facility] ([facility])[address] [place] [address] [place] CO2 [Moles/Vol] 26 mmol/L Normal 22-30 [facility] Comment on above: Performed By: #### L AB19 ####Textile Engineer: MARY SOTELO ([phone])[facility] ([facility])[address] [place] [address] Creatinine [Mass/Vol] 1.33 mg/dL High 0.52-1.[address] [facility] Comment on above: Performed By: #### L AB19 ####Textile Engineer: MARY SOTELO ([phone])[facility] ([facility])[address] [place] [address] GLOMERULAR FILTRATION RATE ML/MIN/1.73 SQ M.PREDICTED 44.8 mL/min/1.73m*2 Low >60.0 [facility] Comment on above: Result Comment: Calc ulation based on the Chronic Kidney Disease Epidemiology Collaboration (CKD-EPI) equation refit without adjustment for race Performed By: #### L AB19 ####Textile Engineer: MARY SOTELO ([phone])[facility] ([facility])[address] [place] [address] [place] Glucose [Mass/Vol] 139 mg/dL High 70-100 [facility] Comment on above: Performed By: #### L AB19 ####Textile Engineer: MARY SOTELO ([phone])[facility] ([facility])[address] [place] [address] Phosphate [Mass/Vol] 2.7 mg/dL Normal 2.5-4.5 [facility] Comment on above: Performed By: #### L AB19 ####Textile Engineer: MARY SOTELO ([id number])[facility] ([facility])[address] [place] [address] [place] Potassium [Moles/Vol] 4.2 mmol/L Normal 3.5-5.[address] [facility] Comment on above: Performed By: #### L AB19 ####Textile Engineer: MARY SOTELO ([id number])[facility] ([facility])[address] [place] [address] [place] Sodium [Moles/Vol] 131 mmol/L Low 135-145 [facility] Comment on above: Performed By: #### L AB19 ####Textile Engineer: MARY SOTELO ([phone])[facility] ([facility])[address] [place] [address] Urea nitrogen [Mass/Vol] 30 mg/dL High 7-17 [facility] Comment on above: Performed By: #### L AB19 ####Textile Engineer: MARY SOTELO ([phone])[facility] ([facility])[address] [place] [address] XR CHEST 1 VIEWon 07-28-2023 XR CHEST 1 VIEW Normal [facility] BASIC METABOLIC PANELon 07-05 Anion gap [Moles/Vol] 6 mmol/L Normal 3-[address] [facility] Comment on above: Performed By: #### L AB103, LAB15 ####Textile Engineer: MARY SOTELO ([phone])[facility] ([facility])[address] [place] [address] Calcium [Mass/Vol] 7.3 mg/dL Low 8.4-10.4 [facility] Comment on above: Performed By: #### L AB103, LAB15 ####Textile Engineer: MARY SOTELO ([phone])[facility] ([facility])[address] [place] [address] [place] Chloride [Moles/Vol] 102 mmol/L Normal 98-107 [facility] Comment on above: Performed By: #### L AB103, LAB15 ####Textile Engineer: MARY SOTELO ([phone])[facility] ([facility])[address] [place] [address] [place] CO2 [Moles/Vol] 24 mmol/L Normal 22-30 [facility] Comment on above: Performed By: #### L AB103, LAB15 ####Textile Engineer: MARY SOTELO ([phone])[facility] ([facility])[address] [place] [address] [place] Creatinine [Mass/Vol] 2.18 mg/dL High 0.52-1.[address] [facility] Comment on above: Performed By: #### L AB103, LAB15 ####Textile Engineer: MARY SOTELO ([phone])[facility])[address] [place] [address] GLOMERULAR FILTRATION RATE ML/MIN/1.73 SQ M.PREDICTED 24.7 mL/min/1.73m*2 Low >60.0 [facility] Comment on above: Result Comment: Calc ulation based on the Chronic Kidney Disease Epidemiology Collaboration (CKD-EPI) equation refit without adjustment for race Performed By: #### L 103, LAB15 ####Textile Engineer: MARY SOTELO ([phone])[facility])[address] [place] [address] Glucose [Mass/Vol] 87 mg/dL Normal 70-100 [facility] Comment on above: Performed By: #### L NOHEMI, LAB15 ####Textile Engineer: MARY SOTELO ([phone])[facility])[address] [place] [address] Potassium [Moles/Vol] 3.6 mmol/L Normal 3.5-5.[address] [facility] Comment on above: Performed By: #### L NOHEMI, LAB15 ####Textile Engineer: MARY SOTELO ([phone])[facility])[address] [place] [address] Sodium [Moles/Vol] 131 mmol/L Low 135-145 [facility] Comment on above: Performed By: #### L AB103, LAB15 ####Textile Engineer: MARY SOTELO ([phone])[facility])[address] [place] [address] [place] Urea nitrogen [Mass/Vol] 41 mg/dL High 7-17 [facility] Comment on above: Performed By: #### L AB103, LAB15 ####Textile Engineer: MARY SOTELO ([phone])[facility])[address] [place] [address] [place] BLOOD GAS ARTERIALon 024 Base excess Calc (Bld) [Moles/Vol] 0.4 mmol/L Normal -3.0-3.0 [facility] Comment on above: Performed By: #### L AB76 ####Textile Engineer: MARY SOTELO ([id number])[facility] ([facility])[address] [place] [address] CO2 [Moles/Vol] 26.5 mmol/L Normal 23.0-27.0 [facility] Comment on above: Performed By: #### L AB76 ####Textile Engineer: MARY SOTELO ([phone])[facility] ([facility])[address] [place] [address] HCO3 (Bld) [Moles/Vol] 25.3 mmol/L High 21.0-25.0 [facility] Comment on above: Performed By: #### L AB76 ####Textile Engineer: MARY SOTELO ([phone])[facility] ([facility])[address] [place] [address] Hemoglobin (Bld) [Mass/Vol] 8.9 g/dL Normal Screen only [facility] Comment on above: Performed By: #### L AB76 ####Textile Engineer: MARY SOTELO ([phone])[facility] ([facility])[address] [place] [address] OXYGEN SATURATION (%) IN ARTERIAL BLOOD 97.1 % Normal 95.0-100.0 [facility] Comment on above: Performed By: #### L AB76 ####Textile Engineer: MARY SOTELO ([id number])[facility] ([facility])[address] [place] [address] PCO2 ARTERIAL 41.9 mm Hg Normal >35.0-<45.0 [facility] Comment on above: Performed By: #### L AB76 ####Textile Engineer: MARY SOTELO ([phone])[facility] ([facility])[address] [place] [address] PH ARTERIAL 7.398 Normal 7.350-7.450 [facility] Comment on above: Performed By: #### L AB76 ####Textile Engineer: MARY SOTELO ([phone])[facility])[address] [place] [address] PO2 ARTERIAL 100.1 mm Hg High 80.0-100.0 [facility] Comment on above: Performed By: #### L AB76 ####Textile Engineer: MARY SOTELO ([phone])[facility] ([facility])[address] [place] [address] SOURCE OF OXYGEN 30% Oxygen Normal [facility] Comment on above: Result Comment: vent Performed By: #### L AB76 ####Textile Engineer: MARY SOTELO ([phone])[facility] ([facility])[address] [place] [address] Base excess Calc (Bld) [Moles/Vol] -2.5000 mmol/L Normal -3.0-3.0 [facility] Comment on above: Order Comment: 30 mi n after vent changes Performed By: #### L AB76 ####Textile Engineer: MARY SOTELO ([phone])[facility] ([facility])[address] [place] [address] CO2 [Moles/Vol] 26.0 mmol/L Normal 23.0-27.0 [facility] Comment on above: Order Comment: 30 mi n after vent changes Performed By: #### L AB76 ####Textile Engineer: MARY SOTELO ([phone])[facility] ([facility])[address] [place] [address] HCO3 (Bld) [Moles/Vol] 24.4 mmol/L Normal 21.0-25.0 [facility] Comment on above: Order Comment: 30 mi n after vent changes Performed By: #### L AB76 ####Textile Engineer: MARY SOTELO ([phone])[facility])[address] [place] [address] Hemoglobin (Bld) [Mass/Vol] 9.3 g/dL Normal Screen only [facility] Comment on above: Order Comment: 30 mi n after vent changes Performed By: #### L AB76 ####Textile Engineer: MRAY SOTELO ([id number])[facility] ([facility])[address] [place] [address] OXYGEN SATURATION (%) IN ARTERIAL BLOOD 97.1 % Normal 95.0-100.0 [facility] Comment on above: Order Comment: 30 mi n after vent changes Performed By: #### L AB76 ####Textile Engineer: MARY SOTELO ([phone])[facility] ([facility])[address] [place] [address] PCO2 ARTERIAL 52.3 mm Hg High >35.0-<45.0 [facility] Comment on above: Order Comment: 30 mi n after vent changes Performed By: #### L AB76 ####Textile Engineer: MARY SOTELO ([phone])[facility] ([facility])[address] [place] [address] PH ARTERIAL 7.286 Low 7.350-7.450 [facility] Comment on above: Order Comment: 30 mi n after vent changes Performed By: #### L AB76 ####Textile Engineer: MARY SOTELO ([phone])[facility] ([facility])[address] [place] [address] PO2 ARTERIAL 115.1 mm Hg High 80.0-100.0 [facility] Comment on above: Order Comment: 30 mi n after vent changes Performed By: #### L AB76 ####Textile Engineer: MARY SOTELO ([phone])[facility] ([facility])[address] [place] [address] SOURCE OF OXYGEN 30% Oxygen Normal [facility] Comment on above: Order Comment: 30 mi n after vent changes Result Comment: vent Performed By: #### L AB76 ####Textile Engineer: MARY SOTELO ([phone])[facility] ([facility])[address] [place] [address] Base excess Calc (Bld) [Moles/Vol] -6.7000 mmol/L Low -3.0-3.0 [facility] Comment on above: Performed By: #### L AB76 ####Textile Engineer: MARY SOTELO ([id number])[facility] ([facility])[address] [place] [address] [place] CO2 [Moles/Vol] 22.8 mmol/L Low 23.0-27.0 [facility] Comment on above: Performed By: #### L AB76 ####Textile Engineer: MARY SOTELO ([phone])[facility])[address] [place] [address] HCO3 (Bld) [Moles/Vol] 21.1 mmol/L Normal 21.0-25.0 [facility] Comment on above: Performed By: #### L AB76 ####Textile Engineer: MARY SOTELO ([phone])[facility] ([facility])[address] [place] [address] Hemoglobin (Bld) [Mass/Vol] 9.9 g/dL Normal Screen only [facility] Comment on above: Performed By: #### L AB76 ####Textile Engineer: MARY SOTELO ([id number])[facility] ([facility])[address] [place] [address] OXYGEN SATURATION (%) IN ARTERIAL BLOOD 96.9 % Normal 95.0-100.0 [facility] Comment on above: Performed By: #### L AB76 ####Textile Engineer: MARY SOTELO ([id number])[facility] [place] [address] PCO2 ARTERIAL 53.5 mm Hg High >35.0-<45.0 [facility] Comment on above: Performed By: #### L AB76 ####Textile Engineer: MARY SOTELO ([id number])[facility] ([facility])[address] [place] [address] PH ARTERIAL 7.214 Low 7.350-7.450 [facility] Comment on above: Performed By: #### L AB76 ####Textile Engineer: MARY SOTELO ([phone])[facility] [place] [address] PO2 ARTERIAL 108.9 mm Hg High 80.0-100.0 [facility] Comment on above: Performed By: #### L AB76 ####Textile Engineer: MARY SOTELO ([phone])[facility] ([facility])[address] [place] [address] SOURCE OF OXYGEN Vent Normal [facility] Comment on above: Performed By: #### L AB76 ####Textile Engineer: MARY SOTELO ([phone])[facility] ([facility] [place] [address] [place] C3, BLOODon 07-27-2024 C3, BLOOD 56 mg/dL Low 88-165 [facility] Comment on above: Performed By: #### L AB152, [id number] ####Textile Engineer: MARLENY GUZMÁN ([phone])[facility] ([facility])[address] [place] [address] C4 COMPLEMENTon 07-27-2024 C4, BLOOD 10 mg/dL Low 14-44 [facility] Comment on above: Performed By: #### L AB152, [id number] ####Textile Engineer: MARLENY GUZMÁN ([phone])[facility] ([facility])[address] [place] [address] [place] CALCIUM, IONIZEDon 4 CALCIUM IONIZED 4.00 mg/dL Low 4.30-5.20 [facility] Comment on above: Performed By: #### L AB54 ####Textile Engineer: MARY SOTELO ([phone])[facility] ([facility] [place] [address] [place] PH, IONIZED CALCIUM 7.50 High 7.31-7.46 [facility] Comment on above: Performed By: #### L AB54 ####Textile Engineer: MARY SOTELO ([phone])[facility] ([facility])[address] [place] [address] [place] CALCIUM IONIZED 4.20 mg/dL Low 4.30-5.20 [facility] Comment on above: Performed By: #### L AB54 ####Textile Engineer: MARY SOTELO ([phone])[facility])[address] [place] [address] PH, IONIZED CALCIUM 7.32 Normal 7.31-7.46 [facility] Comment on above: Performed By: #### L AB54 ####Textile Engineer: MARY SOTELO ([phone])[facility])[address] [place] [address] CALCIUM IONIZED 3.70 mg/dL Low 4.30-5.20 [facility] Comment on above: Performed By: #### L AB54 ####Textile Engineer: MARY SOTELO ([phone])[facility])[address] [place] [address] PH, IONIZED CALCIUM 7.22 Low 7.31-7.46 [facility] Comment on above: Performed By: #### L AB54 ####Textile Engineer: MARY SOTELO ([phone])[facility])[address] [place] [address] [employer]ORDon 07-27-2024 [facility] Normal [facility] CBC WITH AUTO DIFFERENTIALon 07-27-2024 Erythrocyte distribution width (RBC) [Ratio] 15.3 % High 11.5-15.0 [facility] Comment on above: Performed By: #### L [id number], [id number] ####Textile Engineer: MARY SOTELO ([phone])[facility] ([facility])[address] [place] [address] Hematocrit (Bld) [Volume fraction] 27.2 % Low 35.0-47.0 [facility] Comment on above: Performed By: #### L [id number], [id number] ####Textile Engineer: MARY SOTELO ([phone])[facility])[address] [place] [address] Hemoglobin (Bld) [Mass/Vol] 8.8 g/dL Low 11.7-16.0 [facility] Comment on above: Performed By: #### L [id number], [id number] ####Textile Engineer: MARY SOTELO ([phone])[facility] ([facility])[address] [place] [address] MCH (RBC) [Entitic mass] 28.5 pg Normal 26.0-34.0 [facility] Comment on above: Performed By: #### L [id number], [id number] ####Textile Engineer: MARY SOTELO ([phone])[facility])[address] [place] [address] MCHC 32.4 % Normal 30.5-36.0 [facility] Comment on above: Performed By: #### L [id number], [id number] ####Textile Engineer: MARY SOTELO ([phone])[facility])[address] [place] [address] MCV (RBC) [Entitic vol] 88.0 fL Normal 77.0-99.0 [facility] Comment on above: Performed By: #### L [id number], [id number] ####Textile Engineer: MARY SOTELO ([id number])[facility] ([facility])[address] [place] [address] Platelet mean volume (Bld) [Entitic vol] 10.4 fL Normal 9.0-12.7 [facility] Comment on above: Performed By: #### L [id number], [id number] ####Textile Engineer: MARY SOTELO ([phone])[facility])[address] [place] [address] Platelets (Bld) [#/Vol] 186 10*3/uL Normal 140-440 [facility] Comment on above: Performed By: #### L [id number], [id number] ####Textile Engineer: MARY SOTELO ([phone])[facility])[address] [place] [address] RBC (Bld) [#/Vol] 3.09 10*6/uL Low 3.80-5.20 [facility] Comment on above: Performed By: #### L [id number], [id number] ####Textile Engineer: MARY SOTELO ([phone])[facility] ([facility])[address] [place] [address] WBC (Bld) [#/Vol] 14.5 10*3/uL High 3.6-10.7 [facility] Comment on above: Performed By: #### L [id number], [id number] ####Textile Engineer: MARY SOTELO ([phone])[facility] ([facility])[address] [place] [address] CKon 07-27-2024 CK [Catalytic activity/Vol] 865 U/L High 30-170 [facility] Comment on above: Performed By: #### Dora AB62, LAB17, [id number], [id number] ####Textile Engineer: MARY SOTELO ([phone])[facility] ([facility])[address] [place] [address] COMPREHENSIVE METABOLIC PANE [place] 07-27-2024 Albumin [Mass/Vol] 2.4 g/dL Low 3.5-5.0 [facility] Comment on above: Performed By: #### L ABBonita, LAB17, [id number], [id number] ####Textile Engineer: MARY SOTELO ([phone])[facility] ([facility])[address] [place] [address] ALP [Catalytic activity/Vol] 66 U/L Normal 38-126 [facility] Comment on above: Performed By: #### L AB62, LAB17, [id number], [id number] ####Textile Engineer: MARY SOTELO ([phone])[facility] ([facility])[address] [place] [address] ALT [Catalytic activity/Vol] 19 U/L Normal 0-34 [facility] Comment on above: Performed By: #### L AB62, LAB17, KYQ717, [id number] ####Textile Engineer: MARY SOTELO ([phone])[facility])[address] [place] [address] Anion gap [Moles/Vol] 11 mmol/L Normal 3-13 [facility] Comment on above: Performed By: #### L AB62, LAB17, [id number], [id number] ####Textile Engineer: MARY SOTELO ([phone])[facility] ([facility])[address] [place] [address] AST [Catalytic activity/Vol] 28 U/L Normal 15-46 [facility] Comment on above: Performed By: #### L AB62, LAB17, NII712, [id number] ####Textile Engineer: MARY SOTELO ([phone])[facility] ([facility])[address] [place] [address] Bilirubin [Mass/Vol] 0.3 mg/dL Normal 0.2-1.3 [facility] Comment on above: Performed By: #### Dora AB62, LAB17, ZAR449, KBI268 ####Textile Engineer: MARY SOTELO ([phone])[facility] ([facility])[address] [place] [address] Calcium [Mass/Vol] 6.5 mg/dL Low 8.4-10.4 [facility] Comment on above: Performed By: #### Dora ABBonita, LAB17, [id number], [id number] ####Textile Engineer: MARY SOTELO ([phone])[facility] ([facility])[address] [place] [address] Chloride [Moles/Vol] 101 mmol/L Normal 98-107 [facility] Comment on above: Performed By: #### L AB62, LAB17, [id number], PPV145 ####Textile Engineer: MARY SOTELO ([phone])[facility] ([facility])[address] [place] [address] [place] CO2 [Moles/Vol] 18 mmol/L Low 22-30 [facility] Comment on above: Performed By: #### L AB62, LAB17, [id number], [id number] ####Textile Engineer: MARY SOTELO ([phone])[facility] ([facility])[address] [place] [address] [place] Creatinine [Mass/Vol] 4.00 mg/dL High 0.52-1.[address] [facility] Comment on above: Performed By: #### L AB62, LAB17, SWL785, [id number] ####Textile Engineer: MARY SOTELO ([phone])[facility])[address] [place] [address] GLOMERULAR FILTRATION RATE ML/MIN/1.73 SQ M.PREDICTED 11.9 mL/min/1.73m*2 Low >60.0 [facility] Comment on above: Result Comment: Calc ulation based on the Chronic Kidney Disease Epidemiology Collaboration (CKD-EPI) equation refit without adjustment for race Performed By: #### L AB62, LAB17, [id number], [id number] ####Textile Engineer: MARY SOTELO ([phone])[facility])[address] [place] [address] Glucose [Mass/Vol] 254 mg/dL High 70-100 [facility] Comment on above: Performed By: #### L AB62, LAB17, SGD403, NQO709 ####Textile Engineer: MARY SOTELO ([phone])[facility])[address] [place] [address] Potassium [Moles/Vol] 4.3 mmol/L Normal 3.5-5.[address] [facility] Comment on above: Performed By: #### L AB62, LAB17, QAZ644, AAR605 ####Textile Engineer: MARY SOTELO ([phone])[address] Protein [Mass/Vol] 4.9 g/dL Low 6.3-8.2 [facility] Comment on above: Performed By: #### L AB62, LAB17, IJX703, [id number] ####Textile Engineer: MARY SOTELO ([phone])[address] Sodium [Moles/Vol] 130 mmol/L Low 135-145 [facility] Comment on above: Performed By: #### L AB62, LAB17, IPP617, PEQ177 ####Textile Engineer: MARY [id number])[facility] ([facility])[address] [place] [address] Urea nitrogen [Mass/Vol] 66 mg/dL High 7-17 [facility] Comment on above: Performed By: #### L AB62, LAB17, XPE237, OSF432 ####Textile Engineer: MARY SOTELO ([phone])[facility] ([facility])[address] [place] [address] Consulton 07-27-2024 Consult Normal [facility] Consult Normal [facility] Consult Normal [facility] ECG 12-LEADon 07-27-2024 ECG 12-LEAD IMPRESSION: Sinus rhythm Short OK interval Left anterior fascicular block Anteroseptal infarct, age indeterminate Nonspecific T abnormalities, lateral leads Electronically Signed On 07-27-2024 07:43:40 EDT by Mira Byrd Normal [facility] FREE T4on 07-27-2024 Free T4 [Mass/Vol] 1.67 ng/dL Normal 0.78-2.19 [facility] Comment on above: Performed By: #### L [id number] ####Textile Engineer: MARY SOTELO ([id number])[facility] ([facility])[address] [place] [address] HEPATITIS B SURFACE ANTIBODY on 07-27-2024 HEPATITIS B VIRUS SURFACE AB <8.0 Normal [facility] Comment on above: Result Comment: ORDE R COMMENTS:Interpretation:<8.0 Non-Reactive8.0-11.9 Equivocal>= 12.0 Ab DetectedNote: If an equivocal result is interpreted, an antibody status is unable to be determined. Collect new specimen if clinically indicated. Performed By: #### L [id number], [id number] ####Textile Engineer: MARY SOTELO ([id number])[facility] ([facility])[address] [place] [address] HEPATITIS B SURFACE ANTIGENo n 07-27-2024 HEPATITIS B VIRUS SURFACE AG Not detected Normal Not Detected [facility] Comment on above: Performed By: #### L AB471, MAL244 ####Textile Engineer: MARY SOTELO ([phone])[facility] [place] [address] MAGNESIUMon 07-27-2024 Magnesium [Mass/Vol] 1.9 mg/dL Normal 1.6-2.3 [facility] Comment on above: Performed By: #### L AB103, LAB15 ####Textile Engineer: MARY SOTELO ([phone])[facility])[address] [place] [address] Magnesium [Mass/Vol] 2.0 mg/dL Normal 1.6-2.3 [facility] Comment on above: Performed By: #### L AB62, LAB17, TXL681, [id number] ####Textile Engineer: MARY SOTELO ([phone])[facility])[address] [place] [address] MANUAL DIFFERENTIAL (CELLAVI ESPINOZA)on 07-27-2024 ANISOCYTOSIS PRESENCE IN BLOOD BY LIGHT MICROSCOPY Slight Abnormal (none) [facility] Comment on above: Performed By: #### L [id number], [id number] ####Textile Engineer: MARY SOTELO ([phone])[facility] ([facility])[address] [place] [address] BAND NEUTROPHILS TOTAL PER COUNTED LEUKOCYTES BY MANUAL COUNT Normal [facility] Comment on above: Performed By: #### L [id number], [id number] ####Textile Engineer: MARY SOTELO ([phone])[facility])[address] [place] [address] BASOPHILIC STIPPLING PRESENCE IN BLOOD BY LIGHT MICROSCOPY Rare Abnormal (none) [facility] Comment on above: Performed By: #### L [id number], [id number] ####Textile Engineer: MARY SOTELO ([id number])[facility])[address] [place] [address] BASOPHILS TOTAL PER COUNTED LEUKOCYTES BY MANUAL COUNT Normal [facility] Comment on above: Performed By: #### L [id number], [id number] ####Textile Engineer: MARY SOTELO ([phone])[facility])[address] [place] [address] [place] BLASTS TOTAL PER COUNTED LEUKOCYTES BY MANUAL COUNT Normal [facility] Comment on above: Performed By: #### L [id number], [id number] ####Textile Engineer: MARY SOTELO ([phone])[facility] ([facility])[address] [place] [address] [place] EOSINOPHILS TOTAL PER COUNTED LEUKOCYTES BY MANUAL COUNT Normal [facility] Comment on above: Performed By: #### L [id number], [id number] ####Textile Engineer: MARY SOTELO ([id number])[facility] [place] [address] [place] LYMPHOCYTE VARIANT/100 LEUKOCYTES IN BLOOD- CELLAVISION 1 % High <=0 [facility] Comment on above: Performed By: #### L [id number], [id number] ####Textile Engineer: MARY SOTELO ([phone])[facility] ([facility])[address] [place] [address] [place] LYMPHOCYTES (10*3/UL) IN BLOOD-CELLAVISION 0.7 10*3/uL Low 1.0-4.3 [facility] Comment on above: Performed By: #### L [id number], [id number] ####Textile Engineer: MARY SOTELO ([id number])[facility] ([facility])[address] [place] [address] [place] LYMPHOCYTES TOTAL PER COUNTED LEUKOCYTES BY MANUAL COUNT 5 Normal [facility] Comment on above: Performed By: #### L [id number], [id number] ####Textile Engineer: MARY SOTELO ([phone])[facility] [place] [address] [place] LYMPHOCYTES/100 LEUKOCYTES IN BLOOD-CELLAVISION 5 % Low 15-45 [facility] Comment on above: Performed By: #### L [id number], [id number] ####Textile Engineer: MARY SOTELO ([phone])[facility] ([facility])[address] [place] [address] [place] MACROCYTES (PRESENCE) IN BLOOD BY LIGHT MICROSCOPY Slight Abnormal (none) [facility] Comment on above: Performed By: #### L [id number], [id number] ####Textile Engineer: MARY SOTELO ([phone])[facility])[address] [place] [address] [place] METAMYELOCYTES TOTAL PER COUNTED LEUKOCYTES BY MANUAL COUNT Normal [facility] Comment on above: Performed By: #### L [id number], [id number] ####Textile Engineer: MARY SOTELO ([id number])[facility] ([facility])[address] [place] [address] MICROCYTES (PRESENCE) IN BLOOD BY LIGHT MICROSCOPY Slight Abnormal (none) [facility] Comment on above: Performed By: #### L [id number], [id number] ####Textile Engineer: MARY SOTELO ([phone])[facility] ([facility])[address] [place] [address] [place] MONOCYTES (10*3/UL) IN BLOOD-CELLAVISION 0.7 10*3/uL Normal 0.0-0.9 [facility] Comment on above: Performed By: #### L [id number], [id number] ####Textile Engineer: MARY SOTELO ([phone])[facility] ([facility])[address] [place] [address] [place] MONOCYTES TOTAL PER COUNTED LEUKOCYTES BY MANUAL COUNT 5 Normal [facility] Comment on above: Performed By: #### L [id number], [id number] ####Textile Engineer: MARY SOTELO ([phone])[facility])[address] [place] [address] [place] MONOCYTES/100 LEUKOCYTES IN BLOOD-KACEY 5 % Normal 5-13 [facility] Comment on above: Performed By: #### L [id number], [id number] ####Textile Engineer: MARY SOTELO ([phone])[facility])[address] [place] [address] [place] MYELOCYTES COUNTED BY MANUAL COUNT Normal [facility] Comment on above: Performed By: #### L [id number], [id number] ####Textile Engineer: MARY SOTELO ([phone])[facility] ([facility])[address] [place] [address] [place] NEUTROPHILS TOTAL PER COUNTED LEUKOCYTES BY MANUAL COUNT 90 Normal [facility] Comment on above: Performed By: #### L [id number], [id number] ####Textile Engineer: MARY SOTELO ([phone])[facility] ([facility])[address] [place] [address] [place] OVALOCYTES PRESENCE IN BLOOD BY LIGHT MICROSCOPY Slight Abnormal (none) [facility] Comment on above: Performed By: #### L [id number], [id number] ####Textile Engineer: MARY SOTELO ([phone])[facility] ([facility])[address] [place] [address] [place] POIKILOCYTOSIS (PRESENCE) IN BLOOD BY LIGHT MICROSCOPY Slight Abnormal (none) [facility] Comment on above: Performed By: #### L [id number], [id number] ####Textile Engineer: MARY SOTELO ([phone])[facility] [place] [address] [place] POLYCHROMASIA IN BLOOD BY LIGHT MICROSCOPY Slight Abnormal (none) [facility] Comment on above: Performed By: #### L [id number], [id number] ####Textile Engineer: MARY SOTELO ([phone])[facility] ([facility])[address] [place] [address] [place] PROMYELOCYTES TOTAL PER COUNTED LEUKOCYTES BY MANUAL COUNT Normal [facility] Comment on above: Performed By: #### L [id number], [id number] ####Textile Engineer: MARY SOTELO ([phone])[facility] ([facility])[address] [place] [address] [place] RBC MORPHOLOGY IN BLOOD abnormal Normal [facility] Comment on above: Performed By: #### L [id number], [id number] ####Textile Engineer: MARY SOTELO ([phone])[facility] [place] [address] [place] SEGMENTED NEUTROPHILS (10*3/UL) IN BLOOD-CELLAVISION 12.9 10*3/uL High 1.8-7.5 [facility] Comment on above: Performed By: #### L [id number], [id number] ####Textile Engineer: MARY SOTELO ([phone])[facility])[address] [place] [address] SEGMENTED NEUTROPHILS/100 LEUKOCYTES-CE 89 % High 38-82 [facility] Comment on above: Performed By: #### L [id number], [id number] ####Textile Engineer: MARY SOTELO ([phone])[facility] ([facility])[address] [place] [address] UNCLASSIFIED CELLS TOTAL PER COUNTED LEUKOCYTES BY MANUAL COUNT Normal [facility] Comment on above: Performed By: #### L [id number], [id number] ####Textile Engineer: MARY SOTELO ([phone])[facility])[address] [place] [address] VARIANT LYMPHOCYTES (10*3/UL) IN BLOOD-CELLAVISION 0.1 10*3/uL High <=0.0 [facility] Comment on above: Performed By: #### L [id number], [id number] ####Textile Engineer: MARY SOTELO ([phone])[facility])[address] [place] [address] VARIANT LYMPHOCYTES TOTAL PER COUNTED LEUKOCYTES BY MANUAL COUNT 1 Normal [facility] Comment on above: Performed By: #### L [id number], [id number] ####Textile Engineer: MARY SOTELO ([phone])[facility])[address] [place] [address] [place] PHOSPHORUSon 07-27-2024 Phosphate [Mass/Vol] 6.8 mg/dL High 2.5-4.5 [facility] Comment on above: Performed By: #### L AB62, LAB17, [id number], [id number] ####Textile Engineer: MARY SOTELO ([phone])[facility])[address] [place] [address] [place] PNEUMONIA PCR PANELon 2023 PNEUMONIA PCR PANEL Normal [facility] Comment on above: Performed By: #### L [id number] ####Textile Engineer: MARY SOTELO ([phone])[facility] ([facility])[address] [place] [address] Progress Noteon 07-27-[address] [facility] Progress Note OCCUPATIONAL THERAPY [facility] Name/MRN: Sandy Deng ([id number]) Date: 07/27/2024 Intubated, sedated, on bed rest. Will follow. Delmar Ling, OT Normal [facility] Progress Note PHYSICAL THERAPY [facility] Name/MRN: Sandy Deng ([id number]) Date: 07/27/2024 Screen Note. Pt remains intubated and sedated, and on strict bed rest orders. Will continue to follow and re-attempt as able. Jennifer Saldaña, SPT Normal [facility] Progress Note Normal [facility] Progress Note Normal [facility] Progress Note Normal [facility] RENAL FUNCTION PANELon 07-27 Albumin [Mass/Vol] 2.4 g/dL Low 3.5-5.0 [facility] Comment on above: Performed By: #### L [id number] ####Textile Engineer: MARY SOTELO ([phone])[facility] ([facility])[address] [place] [address] Anion gap [Moles/Vol] 4 mmol/L Normal 3-13 [facility] Comment on above: Performed By: #### L AB19 ####Textile Engineer: MARY SOTELO ([phone])[facility] ([facility])[address] [place] [address] Calcium [Mass/Vol] 7.5 mg/dL Low 8.4-10.4 [facility] Comment on above: Performed By: #### L AB19 ####Textile Engineer: MARY SOTELO ([phone])[facility] ([facility])[address] [place] [address] Chloride [Moles/Vol] 102 mmol/L Normal 98-107 [facility] Comment on above: Performed By: #### L AB19 ####Textile Engineer: MARY SOTELO ([phone])[facility])[address] [place] [address] CO2 [Moles/Vol] 25 mmol/L Normal 22-30 [facility] Comment on above: Performed By: #### L AB19 ####Textile Engineer: MARY SOTELO ([phone])[facility])[address] [place] [address] Creatinine [Mass/Vol] 2.81 mg/dL High 0.52-1.[address] [facility] Comment on above: Performed By: #### L AB19 ####Textile Engineer: MARY SOTELO ([phone])[facility])[address] [place] [address] GLOMERULAR FILTRATION RATE ML/MIN/1.73 SQ M.PREDICTED 18.2 mL/min/1.73m*2 Low >60.0 [facility] Comment on above: Result Comment: Calc ulation based on the Chronic Kidney Disease Epidemiology Collaboration (CKD-EPI) equation refit without adjustment for race Performed By: #### L AB19 ####Textile Engineer: MARY SOTELO ([phone])[facility])[address] [place] [address] Glucose [Mass/Vol] 83 mg/dL Normal 70-100 [facility] Comment on above: Performed By: #### L AB19 ####Textile Engineer: MARY SOTELO ([phone])[facility])[address] [place] [address] Phosphate [Mass/Vol] 4.6 mg/dL High 2.5-4.5 [facility] Comment on above: Performed By: #### L AB19 ####Textile Engineer: MARY SOTELO ([phone])[facility])[address] [place] [address] Potassium [Moles/Vol] 3.6 mmol/L Normal 3.5-5.1 [facility] Comment on above: Performed By: #### L AB19 ####Textile Engineer: MARY SOTELO ([phone])[facility] ([facility])[address] [place] [address] Sodium [Moles/Vol] 131 mmol/L Low 135-145 [facility] Comment on above: Performed By: #### L AB19 ####Textile Engineer: MARY SOTELO ([phone])[facility] ([facility])[address] [place] [address] Urea nitrogen [Mass/Vol] 49 mg/dL High 7-17 [facility] Comment on above: Performed By: #### L AB19 ####Textile Engineer: MARY SOTELO ([phone])[facility] ([facility])[address] [place] [address] RESPIRATORY CULTURE AND STAI Non 07-27-2024 RESPIRATORY CULTURE AND STAIN Normal [facility] Comment on above: Performed By: #### L [id number] ####Textile Engineer: MARY SOTELO ([phone])[facility] ([facility])[address] [place] [address] RESPIRATORY PATHOGENS PANEL BY PCRon 07-27-2024 RESPIRATORY PATHOGENS PANEL BY PCR Normal [facility] Comment on above: Performed By: #### L [id number] ####Textile Engineer: MARY SOTELO ([phone])[facility] ([facility])[address] [place] [address] Renal Profileon 07-27-2024 ALB Normal 3.2-5.0 [facility] Comment on above: Result Comment: Canc elled via OM: Order cancelled - Patient discharged Performed By: #### L [id number] ####[facility] [address] [facility] [id number] BUN Normal 7-18 [facility] Comment on above: Result Comment: Canc elled via OM: Order cancelled - Patient discharged Performed By: #### L [id number] ####[facility] [address] [facility] [address] BUN/CRE Normal 10-20 [facility] Comment on above: Result Comment: Canc elled via OM: Order cancelled - Patient discharged Performed By: #### L [id number] ####[facility] [address] [place], [address] [place],Total Normal 8.5-10.1 [facility] Comment on above: Result Comment: Canc elled via OM: Order cancelled - Patient discharged Performed By: #### L [id number] ####[facility] [address] [place], [address] CL Normal 98-107 [facility] Comment on above: Result Comment: Canc elled via OM: Order cancelled - Patient discharged Performed By: #### L [id number] ####[facility] [address] [place], [address] CO2 Normal 21.0-32.0 [facility] Comment on above: Result Comment: Canc elled via OM: Order cancelled - Patient discharged Performed By: #### L 500.3600 ####[facility] [address] [place], [address] CREAT,SERUM Normal 0.55-1.02 [facility] Comment on above: Result Comment: Canc elled via OM: Order cancelled - Patient discharged Performed By: #### L 500.3600 ####[facility] [address] [place], [address] EST GFR Normal >60 [facility] Comment on above: Result Comment: Canc elled via OM: Order cancelled - Patient discharged Performed By: #### L 500.3600 ####[facility] [address] [place], [address] EST GFR - AA Normal >60 [facility] Comment on above: Result Comment: Canc elled via OM: Order cancelled - Patient discharged Performed By: #### L 500.3600 ####[facility] [address] [place], [address] GLU Normal 74-106 [facility] Comment on above: Result Comment: Canc elled via OM: Order cancelled - Patient discharged Performed By: #### L 500.3600 ####[facility] [address] [place], [address] PHOS Normal 2.5-4.9 [facility] Comment on above: Result Comment: Canc elled via OM: Order cancelled - Patient discharged Performed By: #### L 500.3600 ####[facility] [address] [place], [address] Potassium Normal 3.5-5.1 [facility] Comment on above: Result Comment: Canc elled via OM: Order cancelled - Patient discharged Performed By: #### L 500.3600 ####[facility] [address] [place], [address] Renal Profile Normal 136-145 [facility] Comment on above: Result Comment: Canc elled via OM: Order cancelled - Patient discharged Performed By: #### L 500.3600 ####[facility] [address] [place], [address] TROPONIN Ion 07-27-2024 Troponin I.cardiac [Mass/Vol] 0.017 ng/mL Normal <0.034 [facility] Comment on above: Result Comment: BINA Olivarez COMMENTS:Patients with high levels of Biotin oral intake (ie >5 mg/day) may have falsely decreased Troponin levels. Performed By: #### L [id number] ####Textile Engineer: MARY SOTELO ([phone])[facility] ([address] US RETROPERITONEUM LIMITEDon 07-27-2024 US RETROPERITONEUM LIMITED Normal [facility] Vitamin D 1,25-Dihydroxyon 0 07-27-2024 VIT D 1,25 DIHY 41.6 pg/mL Normal 24.8-81.5 [facility] Comment on above: Result Comment: Perf ormed at: BN - [facility] [address] [id number] Director: Rico Lord MD, Phone: [phone] Performed By: #### L 500.4050, L509.1000, L3300.4360, L501.3085, L506.1000, L100.0100 ####[facility] [address] [place], [place], [id number] Abdomen Single View (Portabl e)on 07-26-2024 Abdomen Single View (Portable) Normal [facility] BLOOD GAS ARTERIALon 024 Base excess Calc (Bld) [Moles/Vol] -16.55980 mmol/L Low -3.0-3.0 [facility] Comment on above: Performed By: #### L AB76 ####Textile Engineer: MARY SOTELO ([phone])[facility] ([facility])[address] [place] [address] CO2 [Moles/Vol] 11.7 mmol/L Low 23.0-27.0 [facility] Comment on above: Performed By: #### L AB76 ####Textile Engineer: MARY SOTELO ([phone])[facility] ([facility])[address] [place] [address] [place] HCO3 (Bld) [Moles/Vol] 10.7 mmol/L Low 21.0-25.0 [facility] Comment on above: Performed By: #### L AB76 ####Textile Engineer: MARY SOTELO ([phone])[facility] ([facility])[address] [place] [address] Hemoglobin (Bld) [Mass/Vol] 8.1 g/dL Normal Screen only [facility] Comment on above: Performed By: #### L AB76 ####Textile Engineer: MARY SOTELO ([phone])[facility] ([facility])[address] [place] [address] OXYGEN SATURATION (%) IN ARTERIAL BLOOD 94.9 % Low 95.0-100.0 [facility] Comment on above: Performed By: #### L AB76 ####Textile Engineer: MARY SOTELO ([id number])[facility] ([facility])[address] [place] [address] PCO2 ARTERIAL 30.4 mm Hg Low >35.0-<45.0 [facility] Comment on above: Performed By: #### L AB76 ####Textile Engineer: MARY SOTELO ([phone])[facility] ([facility] [place] [address] PH ARTERIAL 7.166 Critically low 7.350-7.450 [facility] Comment on above: Performed By: #### L AB76 ####Textile Engineer: MARY SOTELO ([phone])[facility] ([facility])[address] [place] [address] PO2 ARTERIAL 95.4 mm Hg Normal 80.0-100.0 [facility] Comment on above: Performed By: #### L AB76 ####Textile Engineer: MARY SOTELO ([phone])[facility] ([facility])[address] [place] [address] SOURCE OF OXYGEN Vent Normal [facility] Comment on above: Performed By: #### L AB76 ####Textile Engineer: MARY SOTELO ([phone])[facility] ([facility])[address] [place] [address] Bedside Glucoseon 07-26-2024 FINGERSTICK GLU 290 mg/dL High 74-106 [facility] Comment on above: Result Comment: SHELLY GEMENT OF PATIENT CARE PER NURSING PROTOCOL Performed By: #### L 501.080 ####[facility] [address] [facility] [id number] [place] GLU 224 mg/dL High 74-106 [facility] Comment on above: Result Comment: SHELLY GEMENT OF PATIENT CARE PER NURSING PROTOCOL Performed By: #### L 501.080 ####[facility] [address] [facility] [address] FINGERSTICK GLU 193 mg/dL High 74-106 [facility] Comment on above: Result Comment: SHELLY ENGEL OF PATIENT CARE PER NURSING PROTOCOL Performed By: #### L 501.080 ####[facility] [address] [place], [address] Blood Gases by [facility] 024 Base excess Calc (Bld) [Moles/Vol] -15 mmol/L Low -2 to +2 [facility] Comment on above: Performed By: #### L 9000.0800 ####[facility] [address] [place], [address] Blood Gas Type ART [facility] Comment on above: Performed By: #### L 9000.0800 ####[facility] [address] [place], [address] CO2 [Moles/Vol] 18 mmol/L Normal [facility] Comment on above: Performed By: #### L 9000.0800 ####[facility] [address] [place], [address] FI02 50.0 [facility] Comment on above: Performed By: #### L 9000.0800 ####[facility] [address] [place], [address] HCO3 (Bld) [Moles/Vol] 16.3 mmol/L Low 22-26 [facility] Comment on above: Performed By: #### L 9000.0800 ####[facility] [address] [place], [address] Mode AC Normal [facility] Comment on above: Performed By: #### L 9000.0800 ####[facility] [address] [place], [address] O2 Delivery Dev Not entered Normal [facility] Comment on above: Performed By: #### L 9000.0800 ####[facility] [address] [place], [address] pCO2 64.6 mmHg High 35-45 [facility] Comment on above: Performed By: #### L 9000.0800 ####[facility] [address] [place], [address] PEEP 5 Normal [facility] Comment on above: Performed By: #### L 9000.0800 ####[facility] [address] [place], [address] pH (Bld) 7.01 [pH] Invalid Interpretation Code 7.35-7.45 [facility] Comment on above: Performed By: #### L 9000.0800 ####[facility] [address] [place], [address] PO2 127 mmHG High 75-100 [facility] Comment on above: Performed By: #### L 9000.0800 ####[facility] [address] [place], [address] Read Back By Yes [facility] Comment on above: Performed By: #### L 9000.0800 ####[facility] [address] [place], [address] Results To brown [facility] Comment on above: Performed By: #### L 9000.0800 ####[facility] [address] [place], [address] RR 16 Normal [facility] Comment on above: Performed By: #### L 9000.0800 ####[facility] [address] [place], [address] SITE R Brach [facility] Comment on above: Performed By: #### L 9000.0800 ####[facility] [address] [place], [address] SO2 96 Normal 95-99 [facility] Comment on above: Performed By: #### L 9000.0800 ####[facility] [address] [place], [address] Time Given 12:36:55 Normal [facility] Comment on above: Performed By: #### L 9000.0800 ####[facility] [address] [place], [address] Vt 400.0 mL Normal [facility] Comment on above: Performed By: #### L 9000.0800 ####[facility] [address] [place], [address] Base excess Calc (Bld) [Moles/Vol] -11 mmol/L Low -2 to +2 [facility] Comment on above: Performed By: #### L 9000.0800 ####[facility] [address] [place], [address] Blood Gas Type ART Normal [facility] Comment on above: Performed By: #### L 9000.0800 ####[facility] [address] [place], [address] CO2 [Moles/Vol] 23 mmol/L Normal [facility] Comment on above: Performed By: #### L 9000.0800 ####[facility] [address] [place], [address] FI02 4.0 Normal [facility] Comment on above: Performed By: #### L 9000.0800 ####[facility] [address] [place], [address] HCO3 (Bld) [Moles/Vol] 20.1 mmol/L Low 22-26 [facility] Comment on above: Performed By: #### L 9000.0800 ####[facility] [address] [place], [address] Mode Not entered [facility] Comment on above: Performed By: #### L 9000.0800 ####[facility] [address] [place], [address] O2 Delivery Dev Not entered [facility] Comment on above: Performed By: #### L 9000.0800 ####[facility] [address] [place], [address] pCO2 82.1 mmHg Invalid Interpretation Code 35-45 [facility] Comment on above: Performed By: #### L 9000.0800 ####[facility] [address] [place], [address] pH (Bld) 7.00 [pH] Invalid Interpretation Code 7.35-7.45 [facility] Comment on above: Performed By: #### L 9000.0800 ####[facility] [address] [place], [address] PO2 119 mmHG High 75-100 [facility] Comment on above: Performed By: #### L 9000.0800 ####[facility] [address] [place], [address] Read Back By Yes [facility] Comment on above: Performed By: #### L 9000.0800 ####[facility] [address] [place], [address] Results To José Miguel [facility] Comment on above: Performed By: #### L 9000.0800 ####[facility] [address] [place], [address] SITE L Radial Normal [facility] Comment on above: Performed By: #### L 9000.0800 ####[facility] [address] [place], [address] SO2 95 Normal 95-99 [facility] Comment on above: Performed By: #### L 9000.0800 ####[facility] [address] [place], [address] Time Given 09:09:17 Normal [facility] Comment on above: Performed By: #### L 9000.0800 ####[facility] [address] [place], [address] Brain/Head without Contrasto n 07-26-2024 Brain/Head without Contrast Normal [facility] Brain/Head without Contrast Normal [facility] CALCIUM, IONIZEDon CALCIUM IONIZED 2.80 mg/dL Low 4.30-5.20 [facility] Comment on above: Performed By: #### L AB54 ####Textile Engineer: MARY SOTELO ([phone])[facility])[address] [place] [address] PH, IONIZED CALCIUM 7.29 Low 7.31-7.46 [facility] Comment on above: Performed By: #### L AB54 ####Textile Engineer: MARY SOTELO ([phone])[facility])[address] [place] [address] CBC WITH AUTO DIFFERENTIALon 07-26-2024 Basophils (Bld) [#/Vol] 0.0 10*3/uL Normal 0.0-0.2 [facility] Comment on above: Performed By: #### L [id number] ####Textile Engineer: MARY SOTELO ([phone])[facility])[address] [place] [address] Basophils/100 WBC (Bld) 0.1 % Normal 0.0-2.0 [facility] Comment on above: Performed By: #### L [id number] ####Textile Engineer: MARY SOTELO ([phone])[facility])[address] [place] [address] Eosinophils (Bld) [#/Vol] 0.0 10*3/uL Normal 0.0-0.5 [facility] Comment on above: Performed By: #### L [id number] ####Textile Engineer: MARY SOTELO ([phone])[facility])[address] [place] [address] Eosinophils/100 WBC (Bld) 0.1 % Normal 0.0-6.0 [facility] Comment on above: Performed By: #### L [id number] ####Textile Engineer: MARY SOTELO ([phone])[facility])[address] [place] [address] Erythrocyte distribution width (RBC) [Ratio] 15.5 % High 11.5-15.0 [facility] Comment on above: Performed By: #### L [id number] ####Textile Engineer: MARY SOTELO ([id number])[address] Hematocrit (Bld) [Volume fraction] 31.3 % Low 35.0-47.0 [facility] Comment on above: Performed By: #### L [id number] ####Textile Engineer: MARY SOTELO ([id number])[address] Hemoglobin (Bld) [Mass/Vol] 10.1 g/dL Low 11.7-16.0 [facility] Comment on above: Performed By: #### L [id number] ####Textile Engineer: MARY SOTELO ([phone])[facility])[address] [place] [address] IMMATURE GRANS % 0.6 % Normal 0.0-2.0 [facility] Comment on above: Performed By: #### L [id number] ####Textile Engineer: MARY SOTELO ([phone])[address] IMMATURE GRANS ABSOLUTE 0.1 10*3/uL High <0.1 [facility] Comment on above: Performed By: #### L [id number] ####Textile Engineer: MARY [id number])[facility])[address] [place] [address] Lymphocytes (Bld) [#/Vol] 1.2 10*3/uL Normal 1.0-4.3 [facility] Comment on above: Performed By: #### L [id number] ####Textile Engineer: MARY SOTELO ([phone])[facility])[address] [place] [address] Lymphocytes/100 WBC (Bld) 6.2 % Low 15.0-45.0 [facility] Comment on above: Performed By: #### L [id number] ####Textile Engineer: MARY SOTELO ([id number])[facility])[address] [place] [address] MCH (RBC) [Entitic mass] 28.6 pg Normal 26.0-34.0 [facility] Comment on above: Performed By: #### L [id number] ####Textile Engineer: MARY SOTELO ([phone])[facility])[address] [place] [address] MCHC 32.3 % Normal 30.5-36.0 [facility] Comment on above: Performed By: #### L [id number] ####Textile Engineer: MARY SOTELO ([phone])[facility])[address] [place] [address] MCV (RBC) [Entitic vol] 88.7 fL Normal 77.0-99.0 [facility] Comment on above: Performed By: #### L [id number] ####Textile Engineer: MARY SOTELO ([phone])[facility])[address] [place] [address] Monocytes (Bld) [#/Vol] 1.4 10*3/uL High 0.0-0.9 [facility] Comment on above: Performed By: #### L [id number] ####Textile Engineer: MARY SOTELO ([phone])[facility])[address] [place] [address] Monocytes/100 WBC (Bld) 7.2 % Normal 5.0-13.0 [facility] Comment on above: Performed By: #### L [id number] ####Textile Engineer: MARY SOTELO ([phone])[facility] ([facility])[address] [place] [address] NEUTROPHILS ABSOLUTE 16.1 10*3/uL High 1.8-7.5 [facility] Comment on above: Performed By: #### L [id number] ####Textile Engineer: MARY SOTELO ([id number])[facility] ([facility])[address] [place] [address] Neutrophils/100 WBC (Bld) 85.8 % High 38.0-82.0 [facility] Comment on above: Performed By: #### L [id number] ####Textile Engineer: MARY SOTELO ([id number])[facility] ([facility])[address] [place] [address] NRBC 1.1 /100 WBCs Normal 0.0-2.0 [facility] Comment on above: Performed By: #### L [id number] ####Textile Engineer: MARY SOTELO ([id number])[facility] ([facility])[address] [place] [address] Platelet mean volume (Bld) [Entitic vol] 11.0 fL Normal 9.0-12.7 [facility] Comment on above: Performed By: #### L [id number] ####Textile Engineer: MARY SOTELO ([id number])[facility] ([facility])[address] [place] [address] Platelets (Bld) [#/Vol] 244 10*3/uL Normal 140-440 [facility] Comment on above: Performed By: #### L [id number] ####Textile Engineer: MARY SOTELO ([phone])[facility] ([facility])[address] [place] [address] RBC (Bld) [#/Vol] 3.53 10*6/uL Low 3.80-5.20 [facility] Comment on above: Performed By: #### L [id number] ####Textile Engineer: MARY SOTELO ([phone])[facility] ([facility])[address] [place] [address] WBC (Bld) [#/Vol] 18.7 10*3/uL High 3.6-10.7 [facility] Comment on above: Performed By: #### L [id number] ####Textile Engineer: MARY SOTELO ([phone])[facility] ([facility])[address] [place] [address] CBC-Complete Blood Cnt No Di ffon 07-26-2024 Erythrocyte distribution width (RBC) [Ratio] 15.0 % High 11.6-14.6 [facility] Comment on above: Performed By: #### L 100.0500, L500.3600 ####[facility] [address] [place], [address] Hematocrit (Bld) [Volume fraction] 22.7 % Low 37-47 [facility] Comment on above: Performed By: #### L 100.0500, L500.3600 ####[facility] [address] [place], [address] Hemoglobin (Bld) [Mass/Vol] 6.9 g/dL Low 12.0-15.0 [facility] Comment on above: Performed By: #### L 100.0500, L500.3600 ####[facility] [address] [place], [address] MCH (RBC) [Entitic mass] 28.9 pg Normal 27.0-32.0 [facility] Comment on above: Performed By: #### L 100.0500, L500.3600 ####[facility] [address] [place], [address] MCHC (RBC) [Mass/Vol] 30.4 g/dL Low 32-36 [facility] Comment on above: Performed By: #### L 100.0500, L500.3600 ####[facility] [address] [place], [address] MCV (RBC) [Entitic vol] 95.0 fL Normal 81-99 [facility] Comment on above: Performed By: #### L 100.0500, L500.3600 ####[facility] [address] [place], [address] Platelet mean volume (Bld) [Entitic vol] 10.8 fL Normal 6.2-12.0 [facility] Comment on above: Performed By: #### L 100.0500, L500.3600 ####[facility] [address] [place], [address] Platelets (Bld) [#/Vol] 164 10*3/uL Normal 150-450 [facility] Comment on above: Performed By: #### L 100.0500, L500.3600 ####[facility] [address] [place], [address] RBC (Bld) [#/Vol] 2.39 10*6/uL Low 4.2-5.4 [facility] Comment on above: Performed By: #### L 100.0500, L500.3600 ####[facility] [address] [place], [address] RDW SD 52.6 fl High 35.1-43.9 [facility] Comment on above: Performed By: #### L 100.0500, L500.3600 ####[facility] [address] [place], [address] WBC (Bld) [#/Vol] 8.3 10*3/uL Normal 4.4-11.0 [facility] Comment on above: Performed By: #### L 100.0500, L500.3600 ####[facility] [address] [place], [address] COMPREHENSIVE METABOLIC PANE [place] 07-26-2024 Albumin [Mass/Vol] 2.9 g/dL Low 3.5-5.0 [facility] Comment on above: Performed By: #### L AB17, [id number], SVR191, [id number], DSA661 ####Textile Engineer: MARY SOTELO ([id number])[facility] ([facility])[address] [place] [address] ALP [Catalytic activity/Vol] 68 U/L Normal 38-126 [facility] Comment on above: Performed By: #### L AB17, GKY319, EQF160, [id number], CAK010 ####Textile Engineer: MARY SOTELO ([phone])[facility] ([facility])[address] [place] [address] ALT [Catalytic activity/Vol] 21 U/L Normal 0-34 [facility] Comment on above: Performed By: #### L AB17, FHA706, LDT516, [id number], [id number] ####Textile Engineer: MARY SOTELO ([id number])[facility] ([facility])[address] [place] [address] Anion gap [Moles/Vol] 10 mmol/L Normal 3-[address] [facility] Comment on above: Performed By: #### L AB17, WDV133, MNL144, [id number], HTZ470 ####Textile Engineer: MARY SOTELO ([id number])[facility] ([facility])[address] [place] [address] AST [Catalytic activity/Vol] 40 U/L Normal 15-46 [facility] Comment on above: Performed By: #### L AB17, GJP623, RPS418, [id number], DKX065 ####Textile Engineer: MARY SOTELO ([id number])[facility])[address] [place] [address] Bilirubin [Mass/Vol] 0.5 mg/dL Normal 0.2-1.3 [facility] Comment on above: Performed By: #### L AB17, QCB228, DGH860, [id number], NQZ220 ####Textile Engineer: MARY SOTELO ([id number])[facility] ([facility])[address] [place] [address] Calcium [Mass/Vol] 5.5 mg/dL Critically low 8.4-10.4 [facility] Comment on above: Performed By: #### L AB17, DKM840, IQX466, [id number], YBF283 ####Textile Engineer: MARY SOTELO ([id number])[facility] ([facility] [place] [address] Chloride [Moles/Vol] 98 mmol/L Normal 98-107 [facility] Comment on above: Performed By: #### L AB17, ORY922, KEV184, [id number], POG602 ####Textile Engineer: MARY SOTELO ([id number])[facility] ([facility])[address] [place] [address] CO2 [Moles/Vol] 17 mmol/L Low 22-30 [facility] Comment on above: Performed By: #### L AB17, IOY370, LMG179, [id number], VVK241 ####Textile Engineer: MARY SOTELO ([id number])[facility] [facility] ([facility])[address] [place] [address] Creatinine [Mass/Vol] 4.56 mg/dL High 0.52-1.[address] [facility] Comment on above: Performed By: #### L AB17, YGE807, HLK634, [id number], [id number] ####Textile Engineer: MARY SOTELO ([phone])[facility] ([facility])[address] [place] [address] [place] GLOMERULAR FILTRATION RATE ML/MIN/1.73 SQ M.PREDICTED 10.2 mL/min/1.73m*2 Low >60.0 [facility] Comment on above: Result Comment: Calc ulation based on the Chronic Kidney Disease Epidemiology Collaboration (CKD-EPI) equation refit without adjustment for race Performed By: #### L AB17, BIM943, VTY661, [id number], KWC652 ####Textile Engineer: MARY SOTELO ([id number])[facility] ([facility])[address] [place] [address] [place] Glucose [Mass/Vol] 252 mg/dL High 70-100 [facility] Comment on above: Performed By: #### L AB17, UJE885, POQ424, [id number], LBE278 ####Textile Engineer: MARY SOTELO ([phone])[facility])[address] [place] [address] Potassium [Moles/Vol] 5.5 mmol/L High 3.5-5.1 [facility] Comment on above: Performed By: #### L AB17, HVL217, FKP875, [id number], PYM681 ####Textile Engineer: MARY SOTELO ([phone])[facility] ([facility])[address] [place] [address] Protein [Mass/Vol] 5.5 g/dL Low 6.3-8.2 [facility] Comment on above: Performed By: #### L AB17, BJF438, ORC197, [id number], APY967 ####Textile Engineer: MARY SOTELO ([phone])[facility])[address] [place] [address] [place] Sodium [Moles/Vol] 125 mmol/L Low 135-145 [facility] Comment on above: Performed By: #### L AB17, UZU079, LTC912, [id number], FTD727 ####Textile Engineer: MARY SOTELO ([id number])[facility])[address] [place] [address] [place] Urea nitrogen [Mass/Vol] 76 mg/dL High 7-17 [facility] Comment on above: Performed By: #### L AB17, SNG901, AGA564, [id number], SDN955 ####Textile Engineer: MARY SOTELO ([phone])[facility])[address] [place] [address] [place] CPK Total, Creatine Kinaseon 07-26-2024 CPK TOTAL 1209 U/L High 26-192 [facility] Comment on above: Order Comment: Comme nts: DC when propofol is d/c'dDC when propofol is d/c'd Performed By: #### L 501.3620, L501.5000 ####[facility] [address] [place], [address] CREATININE, URINE, RANDOMon 07-26-2024 CREATININE, URINE 96.9 mg/dL Normal [facility] Comment on above: Performed By: #### L AB444, KXL649, TZM523 ####Textile Engineer: MARY SOTELO ([phone])[facility] ([facility])[address] [place] [address] CT CERVICAL SPINE WO IV CONT RASTon 07-26-2024 CT CERVICAL SPINE WO IV CONTRAST Normal [facility] CT HEAD WO IV CONTRASTon CT HEAD WO IV CONTRAST Normal [facility] CXR for Line Placementon CXR for Line Placement Normal [facility] Chest 1 View (Portable)on Chest 1 View (Portable) Normal [facility] Consulton 07-26-2024 Consult Normal [facility] Consultation - Intensiviston 07-26-2024 Consultation - Director Of Career Resources Normal [facility] HEMOGLOBIN A1Con 07-26-2024 Glucose [Mass/Vol] 131 mg/dL Normal [facility] Comment on above: Order Comment: If no t done within the last 3 mos Performed By: #### L AB90 ####Textile Engineer: MARY SOTELO ([id number])[facility] ([facility])[address] [place] [address] HbA1c (Bld) [Mass fraction] 6.2 % High <5.7 [facility] Comment on above: Order Comment: If no t done within the last 3 mos Result Comment: Norm al less than 5.7%Prediabetes 5.7% to 6.4%Diabetes 6.5% or higher--HgbA1C levels may not be accurate in patients who have renal disease, received recent blood transfusions, are anemic, or who have dyshemoglobinemia. Performed By: #### L AB90 ####Textile Engineer: MARY SOTELO ([phone])[facility])[address] [place] [address] LACTIC ACID WITH REFLEXon Lactate [Moles/Vol] 0.9 mmol/L Normal 0.7-2.0 [facility] Comment on above: Performed By: #### L [id number] ####Textile Engineer: MARY SOTELO ([phone])[facility] ([facility])[address] [place] [address] LEGIONELLA AND STREPTOCOCCUS URINE ANTIGENon 07-26-2024 LEGIONELLA AND STREPTOCOCCUS URINE ANTIGEN Normal [facility] Comment on above: Performed By: #### L [id number] ####Textile Engineer: MARY SOTELO ([id number])[facility])[address] [place] [address] MAGNESIUMon 07-26-2024 Magnesium [Mass/Vol] 1.5 mg/dL Low 1.6-2.3 [facility] Comment on above: Performed By: #### L AB17, UFP901, GRM270, [id number], YQY151 ####Textile Engineer: MARY SOTELO ([phone])[facility])[address] [place] [address] MR/CON.PCM.NEon 07-26-2024 MR/CON.PCM.NE Normal [facility] OSMOLALITY, SERUMon 07-26-20 24 OSMOLALITY, SERUM 309 mOsm/kg High 280-300 [facility] Comment on above: Performed By: #### L AB107 ####Textile Engineer: MARY SOTELO ([id number])[facility])[address] [place] [address] OSMOLALITY, URINEon 07-26-20 24 OSMOLALITY, URINE 316 mOsm/kg Normal 300-1000 [facility] Comment on above: Performed By: #### L AB444, NPD392, BFT902 ####Textile Engineer: MARY SOTELO ([phone])[facility])[address] PHOSPHORUSon 07-26-2024 Phosphate [Mass/Vol] 8.5 mg/dL High 2.5-4.5 [facility] Comment on above: Performed By: #### L AB17, JWL042, JSS642, [id number], KSG191 ####Textile Engineer: MARY SOTELO ([id number])[facility] ([facility])[address] [place] [address] PROCALCITONIN TESTon 024 PROCALCITONIN 2.48 ng/mL High 0.00-0.09 [facility] Comment on above: Result Comment: ORDE R COMMENTS:PCT <0.50 = Low risk of severe sepsis and/or septic shock.PCT >2.00 = High risk of severe sepsis and/or septic shock. Performed By: #### L [id number] ####Textile Engineer: MARY SOTEOL ([id number])[facility] ([facility])[address] [place] [address] Partial Thromboplast Timeon 07-26-2024 aPTT Coag (Bld) [Time] 33.7 s Normal 24.1-36.2 [facility] Comment on above: Performed By: #### L 300.4310, L300.3900 ####[facility] [address] [place], [place], [id number] Procedure Reporton Procedure Report Normal [facility] Procedure Report Normal [facility] Prothrombin Time w/INRon INR Coag (PPP) [Relative time] 1.3 {INR} Normal [facility] Comment on above: Performed By: #### L 300.4310, L300.3900 ####[facility] [address] [place], [place], [address] PT Coag (PPP) [Time] 15.7 s High 11.7-14.9 [facility] Comment on above: Performed By: #### L 300.4310, L300.3900 ####[facility] [address] [place], [address] Renal Profileon 07-26-2024 Albumin [Mass/Vol] 2.4 g/dL Low 3.2-5.0 [facility] Comment on above: Performed By: #### L 100.0500, L500.3600 ####[facility] [address] [place], [address] BUN/CRE 15.4 RATIO Normal 10-20 [facility] Comment on above: Performed By: #### L 100.0500, L500.3600 ####[facility] [address] [place], [address] CA,Total 5.5 mg/dL Invalid Interpretation Code 8.5-10.1 [facility] Comment on above: Result Comment: Crit ical Result(s) Called at: 03:18:33 07/26/2024 by:Ana Rosa Andrew to [employer]. Results read back by same. Performed By: #### L 100.0500, L500.3600 ####[facility] [address] [place], [address] Chloride [Moles/Vol] 100 mmol/L Normal 98-107 [facility] Comment on above: Performed By: #### L 100.0500, L500.3600 ####[facility] [address] [place], [address] CO2 [Moles/Vol] 20.0 mmol/L Low 21.0-32.0 [facility] Comment on above: Performed By: #### L 100.0500, L500.3600 ####[facility] [address] [place], [address] Creatinine [Mass/Vol] 3.84 mg/dL High 0.55-1.02 [facility] Comment on above: Result Comment: The validity of the calculated GFR GFRAA in patients over70 years has not been determined. Clinical correlation isessential. Performed By: #### L 100.0500, L500.3600 ####[facility] [address] [place], [address] ECRCL 11.26 ml/min Normal [facility] Comment on above: Performed By: #### L 100.0500, L500.3600 ####[facility] [address] [place], [address] EST GFR - AA 15 mL/min Low >60 [facility] Comment on above: Result Comment: Afri can Yemeni GFR Calc Performed By: #### L 100.0500, L500.3600 ####[facility] [address] [place], [address] GFR/1.73 sq M.predicted among non-blacks MDRD (S/P/Bld) [Vol rate/Area] 13 mL/min/{1.73_m2} Low >60 [facility] Comment on above: Result Comment: Non- GFR Calc Performed By: #### L 100.0500, L500.3600 ####[facility] [address] [place], [address] Glucose [Mass/Vol] 167 mg/dL High 74-106 [facility] Comment on above: Result Comment: Fast ing Glucose result greater than or equal to 126 mg/dLsuggests DIABETES MELLITUS per A.D.A. criteria. Performed By: #### L 100.0500, L500.3600 ####[facility] [address] [place], [address] Phosphate [Mass/Vol] 7.0 mg/dL High 2.5-4.9 [facility] Comment on above: Performed By: #### L 100.0500, L500.3600 ####[facility] [address] [place], [address] Potassium [Moles/Vol] 5.6 mmol/L High 3.5-5.1 [facility] Comment on above: Performed By: #### L 100.0500, L500.3600 ####[facility] [address] [place], [address] Sodium [Moles/Vol] 131 mmol/L Low 136-145 [facility] Comment on above: Performed By: #### L 100.0500, L500.3600 ####[facility] [address] [place], [address] Urea nitrogen [Mass/Vol] 59 mg/dL High 7-18 [facility] Comment on above: Performed By: #### L 100.0500, L500.3600 ####[facility] [address] [place], [address] SODIUM, URINE, RANDOMon 07-05 Sodium (U) [Moles/Vol] 31 mmol/L Normal 30-90 [facility] Comment on above: Performed By: #### L AB444, HLY067, VDB588 ####Textile Engineer: MARY SOTELO ([phone])[facility])[address] [place] [address] [place] THYROID STIMULATING HORMONEo n 07-26-2024 THYROID STIMULATING HORMONE 3.472 uIU/mL Normal 0.465-4.680 [facility] Comment on above: Performed By: #### L AB17, FNH851, BVK575, [id number], GCY842 ####Textile Engineer: MARY SOTELO ([id number])[facility] [place], [place] [id number] [place] TROPONIN Ion 07-26-2024 Troponin I.cardiac [Mass/Vol] 0.014 ng/mL Normal <0.034 [facility] Comment on above: Result Comment: BINA R COMMENTS:Patients with high levels of Biotin oral intake (ie >5 mg/day) may have falsely decreased Troponin levels. Performed By: #### L AB747 ####Textile Engineer: MARY SOTELO ([id number])[facility] ([facility])[address] TROPONIN, WITH SERIAL REFLEX on 07-26-2024 Troponin I.cardiac [Mass/Vol] 0.013 ng/mL Normal <0.034 [facility] Comment on above: Result Comment: BINA R COMMENTS:Patients with high levels of Biotin oral intake (ie >5 mg/day) may have falsely decreased Troponin levels. Performed By: #### L AB17, HJE153, JWA854, [id number], MCZ134 ####Textile Engineer: MARY SOTELO ([id number])[facility] [place] [address] Triglycerideson 07-26-2024 Triglyceride [Mass/Vol] 103 mg/dL Normal [facility] Comment on above: Order Comment: Comme nts: DC when propofol is d/c'dDC when propofol is d/c'd Result Comment: The drugs N-Acetylcysteine and Metamizole may falselydepress this assay.Serum Triglycerides Reference Interval Normal <150 mg/dL Borderline high 150 - 199 mg/dL High 200 - 499 mg/dL Very High > or = 500 mg/dL Performed By: #### L 501.3620, L501.5000 ####[facility] [address] [place], [address] XR ABDOMEN 1 VIEWon 07-26-20 24 XR ABDOMEN 1 VIEW Normal [facility] XR CHEST 1 VIEWon 07-26-2024 XR CHEST 1 VIEW Normal [facility] Basic Metabolic Profile (BMP )on 07-25-2024 BUN/CRE 13.8 RATIO Normal 10-20 [facility] Comment on above: Performed By: #### L 500.2500 ####[facility] [address] [place], [address] CA,Total 5.7 mg/dL Invalid Interpretation Code 8.5-10.1 [facility] Comment on above: Result Comment: Crit ical Result(s) Called at: 07:31:06 07/25/2024 by: Hannah Velazquez RN (PCU). Results read back by same. Performed By: #### L 500.2500 ####[facility] [address] [place], [address] Chloride [Moles/Vol] 97 mmol/L Low 98-107 [facility] Comment on above: Performed By: #### L 500.2500 ####[facility] [address] [place], [address] CO2 [Moles/Vol] 23.0 mmol/L Normal 21.0-32.0 [facility] Comment on above: Performed By: #### L 500.2500 ####[facility] [address] [place], [address] Creatinine [Mass/Vol] 3.77 mg/dL High 0.55-1.02 [facility] Comment on above: Result Comment: The validity of the calculated GFR GFRAA in patients over70 years has not been determined. Clinical correlation isessential. Performed By: #### L 500.2500 ####[facility] [address] [place], [address] ECRCL 11.47 ml/min Normal [facility] Comment on above: Performed By: #### L 500.2500 ####[facility] [address] [place], [address] EST GFR - AA 16 mL/min Low >60 [facility] Comment on above: Result Comment: Afri can Yemeni GFR Calc Performed By: #### L 500.2500 ####[facility] [address] [place], [address] GAP 10 Normal 5-15 [facility] Comment on above: Performed By: #### L 500.2500 ####[facility] [address] [place], [address] GFR/1.73 sq M.predicted among non-blacks MDRD (S/P/Bld) [Vol rate/Area] 13 mL/min/{1.73_m2} Low >60 [facility] Comment on above: Result Comment: Non- GFR Calc Performed By: #### L 500.2500 ####[facility] [address] [place], [address] Glucose [Mass/Vol] 275 mg/dL High 74-106 [facility] Comment on above: Result Comment: Gluc ose result greater than or equal to 200 mg/dLsuggests DIABETES MELLITUS per A.D.A. criteria. Performed By: #### L 500.2500 ####[facility] [address] [place], [address] Potassium [Moles/Vol] 5.1 mmol/L Normal 3.5-5.1 [facility] Comment on above: Performed By: #### L 500.2500 ####[facility] [address] [place], [address] Sodium [Moles/Vol] 130 mmol/L Low 136-145 [facility] Comment on above: Performed By: #### L 500.2500 ####[facility] [address] [place], [address] Urea nitrogen [Mass/Vol] 52 mg/dL High 7-18 [facility] Comment on above: Performed By: #### L 500.2500 ####[facility] [address] [place], [address] Bedside Glucoseon 07-25-2024 FINGERSTICK GLU 249 mg/dL High 74-106 [facility] Comment on above: Result Comment: SHELLY GEMENT OF PATIENT CARE PER NURSING PROTOCOL Performed By: #### L 501.080 ####[facility] [address] [place], [address] FINGERSTICK GLU 140 mg/dL High 74-106 [facility] Comment on above: Result Comment: SHELLY GEMENT OF PATIENT CARE PER NURSING PROTOCOL Performed By: #### L 501.080 ####[facility] [address] [place], [address] FINGERSTICK GLU 270 mg/dL High 74-106 [facility] Comment on above: Result Comment: SHELLY ENGEL OF PATIENT CARE PER NURSING PROTOCOL Performed By: #### L 501.080 ####[facility] [address] [place], [address] CBC W/Diff, Automatedon 07-05 Absolute Lymph 1.26 X10 3/uL Normal 0.83-4.51 [facility] Comment on above: Performed By: #### L 100.0100 ####[facility] [address] [place], [address] Absolute Neut 7.1 X10 3/uL Normal 2.0-7.7 [facility] Comment on above: Performed By: #### L 100.0100 ####[facility] [address] [place], [address] Basophils/100 WBC (Bld) 0.2 % Normal 0-1 [facility] Comment on above: Performed By: #### L 100.0100 ####[facility] [address] [place], [address] Eosinophils/100 WBC (Bld) 0.6 % Normal 0-5 [facility] Comment on above: Performed By: #### L 100.0100 ####[facility] [address] [place], [address] Erythrocyte distribution width (RBC) [Ratio] 15.1 % High 11.6-14.6 [facility] Comment on above: Performed By: #### L 100.0100 ####[facility] [address] [place], [address] Hematocrit (Bld) [Volume fraction] 26.8 % Low 37-47 [facility] Comment on above: Performed By: #### L 100.0100 ####[facility] [address] [place], [address] Hemoglobin (Bld) [Mass/Vol] 8.0 g/dL Low 12.0-15.0 [facility] Comment on above: Performed By: #### L 100.0100 ####[facility] [address] [place], [address] IG% 0.800 Normal 0.0-0.9 [facility] Comment on above: Result Comment: IG% - Immature Granulocytes (promyelocytes, myelocytes andmetamyelocytes) > 1% indicates that a LEFT SHIFT is Present. Performed By: #### L 100.0100 ####[facility] [address] [place], [address] Lymphocytes/100 WBC (Bld) 13.5 % Low 19-41 [facility] Comment on above: Performed By: #### L 100.0100 ####[facility] [address] [place], [address] MCH (RBC) [Entitic mass] 28.5 pg Normal 27.0-32.0 [facility] Comment on above: Performed By: #### L 100.0100 ####[facility] [address] [place], [address] MCHC (RBC) [Mass/Vol] 29.9 g/dL Low 32-36 [facility] Comment on above: Performed By: #### L 100.0100 ####[facility] [address] [place], [address] MCV (RBC) [Entitic vol] 95.4 fL Normal 81-99 [facility] Comment on above: Performed By: #### L 100.0100 ####[facility] [address] [place], [address] Monocytes/100 WBC (Bld) 9.1 % Normal 0-10 [facility] Comment on above: Performed By: #### L 100.0100 ####[facility] [address] [place], [address] Neutrophils/100 WBC (Bld) 75.8 % High 47-70 [facility] Comment on above: Performed By: #### L 100.0100 ####[facility] [address] [place], [address] Nucleated RBC (Bld) [#/Vol] 0.3 10*3/uL Normal 0-5 [facility] Comment on above: Performed By: #### L 100.0100 ####[facility] [address] [place], [address] Platelet mean volume (Bld) [Entitic vol] 11.0 fL Normal 6.2-12.0 [facility] Comment on above: Performed By: #### L 100.0100 ####[facility] [address] [place], [address] Platelets (Bld) [#/Vol] 204 10*3/uL Normal 150-450 [facility] Comment on above: Performed By: #### L 100.0100 ####[facility] [address] [place], [address] RBC (Bld) [#/Vol] 2.81 10*6/uL Low 4.2-5.4 [facility] Comment on above: Performed By: #### L 100.0100 ####[facility] [address] [place], [address] RDW SD 53.3 fl High 35.1-43.9 [facility] Comment on above: Performed By: #### L 100.0100 ####[facility] [address] [place], [address] WBC (Bld) [#/Vol] 9.3 10*3/uL Normal 4.4-11.0 [facility] Comment on above: Performed By: #### L 100.0100 ####[facility] [address] [place], [address] HH, Hemoglobin AND Hematocri ton 07-25-2024 Hematocrit (Bld) [Volume fraction] 28.5 % Low 37-47 [facility] Comment on above: Performed By: #### L 100.0600 ####[facility] [address] [place], [address] Hemoglobin (Bld) [Mass/Vol] 8.7 g/dL Low 12.0-15.0 [facility] Comment on above: Performed By: #### L 100.0600 ####[facility] [address] [place], [address] 12 Lead EKGon 07-24-2024 12 Lead EKG Normal [facility] BNP,B-Type NATRIURETIC PEPTI Rinku 07-24-2024 Natriuretic peptide B (Bld) [Mass/Vol] 2478.5 pg/mL High 0-100 [facility] Comment on above: Performed By: #### L 501.6710, L503.6030, L501.2300, L501.3620, L509.7000, L101.9900, L501.5200, L503.6550, L503.6620, L300.8000, L504.2610 ####[facility] [address] [place], [address] Basic Metabolic Profile (BMP )on 07-24-2024 BUN Normal 7-18 [facility] Comment on above: Result Comment: Heena elled via OM: Order edited - Discontinuing original order Performed By: #### L 500.2500 ####[facility] [address] [place], [address] BUN/CRE Normal 10-20 [facility] Comment on above: Result Comment: Heena elled via OM: Order edited - Discontinuing original order Performed By: #### L 500.2500 ####[facility] [address] [place], [address] CA,Total Normal 8.5-10.1 [facility] Comment on above: Result Comment: Canc elled via OM: Order edited - Discontinuing original order Performed By: #### L 500.2500 ####[facility] [address] [place], [address] CL Normal 98-107 [facility] Comment on above: Result Comment: Canc elled via OM: Order edited - Discontinuing original order Performed By: #### L 500.2500 ####[facility] [address] [place], [address] CO2 Normal 21.0-32.0 [facility] Comment on above: Result Comment: Canc elled via OM: Order edited - Discontinuing original order Performed By: #### L 500.2500 ####[facility] [address] [place], [address] CREAT,SERUM Normal 0.55-1.02 [facility] Comment on above: Result Comment: Canc elled via OM: Order edited - Discontinuing original order Performed By: #### L 500.2500 ####[facility] [facility] [address] [place], [address] EST GFR Normal >60 [facility] Comment on above: Result Comment: Canc elled via OM: Order edited - Discontinuing original order Performed By: #### L 500.2500 ####[facility] [address] [place], [address] EST GFR - AA Normal >60 [facility] Comment on above: Result Comment: Canc elled via OM: Order edited - Discontinuing original order Performed By: #### L 500.2500 ####[facility] [address] [place], [address] GAP Normal 5-15 [facility] Comment on above: Result Comment: Canc elled via OM: Order edited - Discontinuing original order Performed By: #### L 500.2500 ####[facility] [address] [place], [address] GLU Normal 74-106 [facility] Comment on above: Result Comment: Canc elled via OM: Order edited - Discontinuing original order Performed By: #### L 500.2500 ####[facility] [address] [place], [address] Potassium Normal 3.5-5.1 [facility] Comment on above: Result Comment: Canc elled via OM: Order edited - Discontinuing original order Performed By: #### L 500.2500 ####[facility] [address] [place], [address] Basic Metabolic Profile (BMP) Normal 136-145 [facility] Comment on above: Result Comment: Canc elled via OM: Order edited - Discontinuing original order Performed By: #### L 500.2500 ####[facility] [address] [place], [address] BUN/CRE 14.2 RATIO Normal 10-20 [facility] Comment on above: Performed By: #### L 500.2500 ####[facility] [address] [place], [address] CA,Total 5.5 mg/dL Invalid Interpretation Code 8.5-10.1 [facility] Comment on above: Performed By: #### L 500.2500 ####[facility] [address] [place], [address] Chloride [Moles/Vol] 103 mmol/L Normal 98-107 [facility] Comment on above: Performed By: #### L 500.2500 ####[facility] [address] [place], [address] CO2 [Moles/Vol] 24.0 mmol/L Normal 21.0-32.0 [facility] Comment on above: Performed By: #### L 500.2500 ####[facility] [address] [place], [address] Creatinine [Mass/Vol] 3.65 mg/dL High 0.55-1.02 [facility] Comment on above: Result Comment: The validity of the calculated GFR GFRAA in patients over70 years has not been determined. Clinical correlation isessential. Performed By: #### L 500.2500 ####[facility] [address] [place], [address] ECRCL 11.92 ml/min Normal [facility] Comment on above: Performed By: #### L 500.2500 ####[facility] [address] [place], [address] EST GFR - AA 16 mL/min Low >60 [facility] Comment on above: Result Comment: Afri can Yemeni GFR Calc Performed By: #### L 500.2500 ####[facility] [address] [place], [address] GAP 8 Normal 5-15 [facility] Comment on above: Performed By: #### L 500.2500 ####[facility] [address] [place], [address] GFR/1.73 sq M.predicted among non-blacks MDRD (S/P/Bld) [Vol rate/Area] 13 mL/min/{1.73_m2} Low >60 [facility] Comment on above: Result Comment: Non- GFR Calc Performed By: #### L 500.2500 ####[facility] [address] [place], [address] Glucose [Mass/Vol] 215 mg/dL High 74-106 [facility] Comment on above: Result Comment: Gluc ose result greater than or equal to 200 mg/dLsuggests DIABETES MELLITUS per A.D.A. criteria. Performed By: #### L 500.2500 ####[facility] [address] [place], [address] Potassium [Moles/Vol] 5.2 mmol/L High 3.5-5.1 [facility] Comment on above: Performed By: #### L 500.2500 ####[facility] [address] [place], [address] Sodium [Moles/Vol] 135 mmol/L Low 136-145 [facility] Comment on above: Performed By: #### L 500.2500 ####[facility] [address] [place], [address] Urea nitrogen [Mass/Vol] 52 mg/dL High 7-18 [facility] Comment on above: Performed By: #### L 500.2500 ####[facility] [address] [place], [address] Bedside Glucoseon 07-24-2024 FINGERSTICK GLU 239 mg/dL High 74-106 [facility] Comment on above: Result Comment: SHELLY GEMENT OF PATIENT CARE PER NURSING PROTOCOL Performed By: #### L 501.080 ####[facility] [address] [place], [address] FINGERSTICK GLU 281 mg/dL High 74-106 [facility] Comment on above: Result Comment: SHELLY GEMENT OF PATIENT CARE PER NURSING PROTOCOL Performed By: #### L 501.080 ####[facility] [address] [place], [address] FINGERSTICK GLU 287 mg/dL High 74-106 [facility] Comment on above: Result Comment: SHELLY GEMENT OF PATIENT CARE PER NURSING PROTOCOL Performed By: #### L 501.080 ####[facility] [address] [place], [address] FINGERSTICK GLU 193 mg/dL High 74-106 [facility] Comment on above: Result Comment: SHELLY GEMENT OF PATIENT CARE PER NURSING PROTOCOL Performed By: #### L 501.080 ####[facility] [address] [place], [address] FINGERSTICK GLU 337 mg/dL High 74-106 [facility] Comment on above: Result Comment: SHELLY GEMENT OF PATIENT CARE PER NURSING PROTOCOL Performed By: #### L 501.080 ####[facility] [address] [place], [address] FINGERSTICK GLU 177 mg/dL High 74-106 [facility] Comment on above: Result Comment: SHELLY GEMENT OF PATIENT CARE PER NURSING PROTOCOL Performed By: #### L 501.080 ####[facility] [address] [place], [address] FINGERSTICK GLU 225 mg/dL High 74-106 [facility] Comment on above: Result Comment: SHELLY GEMENT OF PATIENT CARE PER NURSING PROTOCOL Performed By: #### L 501.080 ####[facility] [address] [place], [address] CBC W/Diff, Automatedon 07-05 Absolute Lymph 0.47 X10 3/uL Low 0.83-4.51 [facility] Comment on above: Performed By: #### L 500.4050, L509.1000, L3300.0960, L501.9985, L506.1000, L100.0100 ####[facility] [address] [place], [address] Absolute Neut 6.3 X10 3/uL Normal 2.0-7.7 [facility] Comment on above: Performed By: #### L 500.4050, L509.1000, L3300.0960, L501.9985, L506.1000, L100.0100 ####[facility] [address] [place], [address] Basophils/100 WBC (Bld) 0.7 % Normal 0-1 [facility] Comment on above: Performed By: #### L 500.4050, L509.1000, L3300.0960, L501.9985, L506.1000, L100.0100 ####[facility] [address] [place], [address] Eosinophils/100 WBC (Bld) 1.6 % Normal 0-5 [facility] Comment on above: Performed By: #### L 500.4050, L509.1000, L3300.0960, L501.9985, L506.1000, L100.0100 ####[facility] [address] [place], [address] Erythrocyte distribution width (RBC) [Ratio] 14.9 % High 11.6-14.6 [facility] Comment on above: Performed By: #### L 500.4050, L509.1000, L3300.0960, L501.9985, L506.1000, L100.0100 ####[facility] [address] [place], [address] Hematocrit (Bld) [Volume fraction] 29.4 % Low 37-47 [facility] Comment on above: Performed By: #### L 500.4050, L509.1000, L3300.0960, L501.9985, L506.1000, L100.0100 ####[facility] [address] [place], [address] Hemoglobin (Bld) [Mass/Vol] 8.6 g/dL Low 12.0-15.0 [facility] Comment on above: Performed By: #### L 500.4050, L509.1000, L3300.0960, L501.9985, L506.1000, L100.0100 ####[facility] [address] [place], [address] IG% 2.100 High 0.0-0.9 [facility] Comment on above: Result Comment: IG% - Immature Granulocytes (promyelocytes, myelocytes andmetamyelocytes) > 1% indicates that a LEFT SHIFT is Present. Performed By: #### L 500.4050, L509.1000, L3300.0960, L501.9985, L506.1000, L100.0100 ####[facility] [address] [place], [address] Lymphocytes/100 WBC (Bld) 6.5 % Low 19-41 [facility] Comment on above: Performed By: #### L 500.4050, L509.1000, L3300.0960, L501.9985, L506.1000, L100.0100 ####[facility] [address] [place], [address] MCH (RBC) [Entitic mass] 28.2 pg Normal 27.0-32.0 [facility] Comment on above: Performed By: #### L 500.4050, L509.1000, L3300.0960, L501.9985, L506.1000, L100.0100 ####[facility] [address] [place], [address] MCHC (RBC) [Mass/Vol] 29.3 g/dL Low 32-36 [facility] Comment on above: Performed By: #### L 500.4050, L509.1000, L3300.0960, L501.9985, L506.1000, L100.0100 ####[facility] [address] [place], [address] MCV (RBC) [Entitic vol] 96.4 fL Normal 81-99 [facility] Comment on above: Performed By: #### L 500.4050, L509.1000, L3300.0960, L501.9985, L506.1000, L100.0100 ####[facility] [address] [place], [address] Monocytes/100 WBC (Bld) 2.2 % Normal 0-10 [facility] Comment on above: Performed By: #### L 500.4050, L509.1000, L3300.0960, L501.9985, L506.1000, L100.0100 ####[facility] [address] [place], [address] Neutrophils/100 WBC (Bld) 86.9 % High 47-70 [facility] Comment on above: Performed By: #### L 500.4050, L509.1000, L3300.0960, L501.9985, L506.1000, L100.0100 ####[facility] [address] [place], [address] Nucleated RBC (Bld) [#/Vol] 0.3 10*3/uL Normal 0-5 [facility] Comment on above: Performed By: #### L 500.4050, L509.1000, L3300.0960, L501.9985, L506.1000, L100.0100 ####[facility] [address] [place], [address] Platelet mean volume (Bld) [Entitic vol] 10.3 fL Normal 6.2-12.0 [facility] Comment on above: Performed By: #### L 500.4050, L509.1000, L3300.0960, L501.9985, L506.1000, L100.0100 ####[facility] [address] [place], [address] Platelets (Bld) [#/Vol] 196 10*3/uL Normal 150-450 [facility] Comment on above: Performed By: #### L 500.4050, L509.1000, L3300.0960, L501.9985, L506.1000, L100.0100 ####[facility] [address] [place], [address] RBC (Bld) [#/Vol] 3.05 10*6/uL Low 4.2-5.4 [facility] Comment on above: Performed By: #### L 500.4050, L509.1000, L3300.0960, L501.9985, L506.1000, L100.0100 ####[facility] [address] [place], [address] RDW SD 52.3 fl High 35.1-43.9 [facility] Comment on above: Performed By: #### L 500.4050, L509.1000, L3300.0960, L501.9985, L506.1000, L100.0100 ####[facility] [address] [place], [address] WBC (Bld) [#/Vol] 7.3 10*3/uL Normal 4.4-11.0 [facility] Comment on above: Performed By: #### L 500.4050, L509.1000, L3300.0960, L501.9985, L506.1000, L100.0100 ####[facility] [address] [place], [address] CPK Total, Creatine Kinaseon 07-24-2024 CPK TOTAL 604 U/L High 26-192 [facility] Comment on above: Order Comment: Comme nts: May add to ED labsComments: add to ED labsComments: may add to ED labsmay add to ED labs Performed By: #### L 501.6710, L503.6030, L501.2300, L501.3620, L509.7000, L101.9900, L501.5200, L503.6550, L503.6620, L300.8000, L504.2610 ####[facility] [address] [place], [address] CRPon 07-24-2024 C-REACTIVE PROT 62.00 mg/L High 0.0-3.0 [facility] Comment on above: Order Comment: Comme [...] (HSCRP)should be ordered. Performed By: #### L 501.6710, L503.6030, L501.2300, L501.3620, L509.7000, L101.9900, L501.5200, L503.6550, L503.6620, L300.8000, L504.2610 ####[facility] [address] [place], [address] Calcium, Urine (Random)on Calcium Ur [place] < 5.0 Normal Not Estab. [facility] Comment on above: Performed By: #### L 501.2240 ####[facility] [address] [place], [address] Comprehensive Metabolic Prof ilon 07-24-2024 Albumin [Mass/Vol] 2.9 g/dL Low 3.2-5.0 [facility] Comment on above: Performed By: #### L 500.4050, L509.1000, L3300.0960, L501.9985, L506.1000, L100.0100 ####[facility] [address] [place], [address] Albumin/Globulin [Mass ratio] 0.7 {ratio} Low 0.9-2.4 [facility] Comment on above: Performed By: #### L 500.4050, L509.1000, L3300.0960, L501.9985, L506.1000, L100.0100 ####[facility] [address] [place], [address] ALK P 78 U/L Normal 45-117 [facility] Comment on above: Performed By: #### L 500.4050, L509.1000, L3300.0960, L501.9985, L506.1000, L100.0100 ####[facility] [address] [place], [address] ALT [Catalytic activity/Vol] 17 U/L Normal 13-56 [facility] Comment on above: Performed By: #### L 500.4050, L509.1000, L3300.0960, L501.9985, L506.1000, L100.0100 ####[facility] [address] [place], [address] AST [Catalytic activity/Vol] 18 U/L Normal 15-37 [facility] Comment on above: Performed By: #### L 500.4050, L509.1000, L3300.0960, L501.9985, L506.1000, L100.0100 ####[facility] [address] [place], [address] Bilirubin [Mass/Vol] 0.40 mg/dL Normal 0.20-1.00 [facility] Comment on above: Result Comment: For patients on eltrombopag therapy, use of Dimension [place] TBIL is not recommended. Performed By: #### L 500.4050, L509.1000, L3300.0960, L501.9985, L506.1000, L100.0100 ####[facility] [address] [place], [address] BUN/CRE 12.2 RATIO Normal 10-20 [facility] Comment on above: Performed By: #### L 500.4050, L509.1000, L3300.0960, L501.9985, L506.1000, L100.0100 ####[facility] [address] [place], [address] CA,Total 5.7 mg/dL Invalid Interpretation Code 8.5-10.1 [facility] Comment on above: Result Comment: Crit ical Result(s) Called at: 11:08:06 07/24/2024 by: Hannah Deleon RN ([facility]). Results read back by same. Performed By: #### L 500.4050, L509.1000, L3300.0960, L501.9985, L506.1000, L100.0100 ####[facility] [address] [place], [address] Chloride [Moles/Vol] 103 mmol/L Normal 98-107 [facility] Comment on above: Performed By: #### L 500.4050, L509.1000, L3300.0960, L501.9985, L506.1000, L100.0100 ####[facility] [address] [place], [address] CO2 [Moles/Vol] 23.0 mmol/L Normal 21.0-32.0 [facility] Comment on above: Performed By: #### L 500.4050, L509.1000, L3300.0960, L501.9985, L506.1000, L100.0100 ####[facility] [address] [place], [address] Creatinine [Mass/Vol] 3.45 mg/dL High 0.55-1.02 [facility] Comment on above: Result Comment: The validity of the calculated GFR GFRAA in patients over70 years has not been determined. Clinical correlation isessential. Performed By: #### L 500.4050, L509.1000, L3300.0960, L501.9985, L506.1000, L100.0100 ####[facility] [address] [place], [address] ECRCL 12.61 ml/min Normal [facility] Comment on above: Performed By: #### L 500.4050, L509.1000, L3300.0960, L501.9985, L506.1000, L100.0100 ####[facility] [address] [place], [address] EST GFR - AA 17 mL/min Low >60 [facility] Comment on above: Result Comment: Afri can Yemeni GFR Calc Performed By: #### L 500.4050, L509.1000, L3300.0960, L501.9985, L506.1000, L100.0100 ####[facility] [address] [place], [address] GAP 8 Normal 5-15 [facility] Comment on above: Performed By: #### L 500.4050, L509.1000, L3300.0960, L501.9985, L506.1000, L100.0100 ####[facility] [address] [place], [address] GFR/1.73 sq M.predicted among non-blacks MDRD (S/P/Bld) [Vol rate/Area] 14 mL/min/{1.73_m2} Low >60 [facility] Comment on above: Result Comment: Non- GFR Calc Performed By: #### L 500.4050, L509.1000, L3300.0960, L501.9985, L506.1000, L100.0100 ####[facility] [address] [place], [address] Globulin (S) [Mass/Vol] 3.9 g/dL Normal 2.2-4.2 [facility] Comment on above: Performed By: #### L 500.4050, L509.1000, L3300.0960, L501.9985, L506.1000, L100.0100 ####[facility] [address] [place], [address] Glucose [Mass/Vol] 220 mg/dL High 74-106 [facility] Comment on above: Result Comment: Gluc ose result greater than or equal to 200 mg/dLsuggests DIABETES MELLITUS per A.D.A. criteria. Performed By: #### L 500.4050, L509.1000, L3300.0960, L501.9985, L506.1000, L100.0100 ####[facility] [address] [place], [address] Potassium [Moles/Vol] 6.2 mmol/L Invalid Interpretation Code 3.5-5.1 [facility] Comment on above: Result Comment: Crit ical Result(s) Called at: 11:08:06 07/24/2024 by: Hannah Deleon RN ([facility]). Results read back by same. Performed By: #### L 500.4050, L509.1000, L3300.0960, L501.9985, L506.1000, L100.0100 ####[facility] [address] [place], [address] Sodium [Moles/Vol] 134 mmol/L Low 136-145 [facility] Comment on above: Performed By: #### L 500.4050, L509.1000, L3300.0960, L501.9985, L506.1000, L100.0100 ####[facility] [address] [place], [address] T PROT 6.8 g/dL Normal 6.4-8.2 [facility] Comment on above: Performed By: #### L 500.4050, L509.1000, L3300.0960, L501.9985, L506.1000, L100.0100 ####[facility] [address] [place], [address] Urea nitrogen [Mass/Vol] 42 mg/dL High 7-18 [facility] Comment on above: Performed By: #### L 500.4050, L509.1000, L3300.0960, L501.9985, L506.1000, L100.0100 ####[facility] [address] [place], [address] Consultation - Nephrologyon 09-21-2024 Consultation - Nephrology Normal [facility] Creatinine, Urine (random)on 07-24-2024 UR CREAT 78.60 mg/dL Normal NO RANGE EST. [facility] Comment on above: Performed By: #### L 501.5500, L501.1200 ####[facility] [address] [place], [place], [id number] D-Dimer Quantitative (DVT/PE )on 07-24-2024 D-DIMER QUANT 2.82 FEU/ug/m Invalid Interpretation Code 0.27-0.49 [facility] Comment on above: Result Comment: D-Di vera ELEVATED (>0.49): Additional studies and clinicalassessments are indicated to conclude diagnosis of:Deep Vein Thrombosis (DVT) or Pulmonary Embolism (PE)CRITICAL VALUE CALLED TO LOWFDNLRT31/21/24 0038 Ana Rosa Andrew.RESULTS READ BACK BY SAME. Performed By: #### L 501.6710, L503.6030, L501.2300, L501.3620, L509.7000, L101.9900, L501.5200, L503.6550, L503.6620, L300.8000, L504.2610 ####[facility] [address] [place], [place], [id number] Erythrocyte Sed Rateon 07-24 SED RATE 21 mm/hr Normal 0-30 [facility] Comment on above: Performed By: #### L 501.6710, L503.6030, L501.2300, L501.3620, L509.7000, L101.9900, L501.5200, L503.6550, L503.6620, L300.8000, L504.2610 ####[facility] [address] [place], [place], [id number] Ferritinon 07-24-2024 Ferritin [Mass/Vol] 106 ng/mL Normal 8-252 [facility] Comment on above: Order Comment: Comme nts: May add to ED labsComments: add to ED labsComments: may add to ED labsmay add to ED labs Performed By: #### L 501.6710, L503.6030, L501.2300, L501.3620, L509.7000, L101.9900, L501.5200, L503.6550, L503.6620, L300.8000, L504.2610 ####[facility] [address] [place], [address] Hemoglobin A1con 07-24-2024 HbA1c (Bld) [Mass fraction] 5.7 % High 3.8-5.6 [facility] Comment on above: Result Comment: Norm al < 5.7 % Prediabetic 5.7 - 6.4 % Diabetic >or= 6.5 % Please note range changes. Performed By: #### L 500.4050, L509.1000, L3300.0960, L501.9985, L506.1000, L100.0100 ####[facility] [address] [place], [address] Iron+Iron Binding Capacityon 07-24-2024 Iron [Mass/Vol] 24 ug/dL Low 50-170 [facility] Comment on above: Order Comment: Comme nts: May add to ED labsComments: add to ED labsComments: may add to ED labsmay add to ED labs Performed By: #### L 501.6710, L503.6030, L501.2300, L501.3620, L509.7000, L101.9900, L501.5200, L503.6550, L503.6620, L300.8000, L504.2610 ####[facility] [address] [place], [address] IRON SATURATION 10.3 Low 15.0-55.0 [facility] Comment on above: Order Comment: Comme nts: May add to ED labsComments: add to ED labsComments: may add to ED labsmay add to ED labs Performed By: #### L 501.6710, L503.6030, L501.2300, L501.3620, L509.7000, L101.9900, L501.5200, L503.6550, L503.6620, L300.8000, L504.2610 ####[facility] [address] [place], [address] TIBC 233 ug/dL Low 250-450 [facility] Comment on above: Order Comment: Comme nts: May add to ED labsComments: add to ED labsComments: may add to ED labsmay add to ED labs Performed By: #### L 501.6710, L503.6030, L501.2300, L501.3620, L509.7000, L101.9900, L501.5200, L503.6550, L503.6620, L300.8000, L504.2610 ####[facility] [address] [place], [address] Kidney and Bladderon 024 Kidney and Bladder Normal [facility] L501.2276on 07-24-2024 Ionized Calcium 3.39 mg/dL Low 4.36-5.20 [facility] Comment on above: Performed By: #### L 501.2276 ####[facility] [address] [place], [address] LDHon 07-24-2024 LDH 334 U/L High 84-246 [facility] Comment on above: Order Comment: Comme nts: May add to ED labsComments: add to ED labsComments: may add to ED labsmay add to ED labs Performed By: #### L 501.6710, L503.6030, L501.2300, L501.3620, L509.7000, L101.9900, L501.5200, L503.6550, L503.6620, L300.8000, L504.2610 ####[facility] [address] [place], [address] Liver Profileon 07-24-2024 Albumin [Mass/Vol] 2.7 g/dL Low 3.2-5.0 [facility] Comment on above: Performed By: #### L 500.3400 ####[facility] [address] [place], [address] ALK P 75 U/L Normal 45-117 [facility] Comment on above: Performed By: #### L 500.3400 ####[facility] [address], [address] ALT [Catalytic activity/Vol] 17 U/L Normal 13-56 [facility] Comment on above: Performed By: #### L 500.3400 ####[facility] [address] [place], [address] AST [Catalytic activity/Vol] 17 U/L Normal 15-37 [facility] Comment on above: Performed By: #### L 500.3400 ####[facility] [address] [place], [address] Bilirubin [Mass/Vol] 0.20 mg/dL Normal 0.20-1.00 [facility] Comment on above: Result Comment: For patients on eltrombopag therapy, use of Dimension [place] TBIL is not recommended. Performed By: #### L 500.3400 ####[facility] [address] [place], [address] Bilirubin.direct [Mass/Vol] 0.10 mg/dL Normal 0.00-0.30 [facility] Comment on above: Performed By: #### L 500.3400 ####[facility] [address] [place], [address] Globulin (S) [Mass/Vol] 3.7 g/dL Normal 2.2-4.2 [facility] Comment on above: Performed By: #### L 500.3400 ####[facility] [address] [place], [address] T PROT 6.4 g/dL Normal 6.4-8.2 [facility] Comment on above: Performed By: #### L 500.3400 ####[facility] [address] [place], [address] M100.678on 07-24-2024 M100.678 Normal [facility] Comment on above: Performed By: #### M 100.678 ####[facility] [address] [place], [address] Magnesiumon 07-24-2024 Magnesium [Mass/Vol] 1.6 mg/dL Normal 1.6-2.6 [facility] Comment on above: Order Comment: Comme nts: May add to ED labsComments: add to ED labsComments: may add to ED labsmay add to ED labs Performed By: #### L 501.6710, L503.6030, L501.2300, L501.3620, L509.7000, L101.9900, L501.5200, L503.6550, L503.6620, L300.8000, L504.2610 ####[facility] [address] [place], [address] PTHINon 07-24-2024 PTH 1027.8 pg/mL High 18.4-80.1 [facility] Comment on above: Performed By: #### L 500.4050, L509.1000, L3300.0960, L501.9985, L506.1000, L100.0100 ####[facility] [address] [place], [address] Phosphoruson 07-24-2024 Phosphate [Mass/Vol] 5.0 mg/dL High 2.5-4.9 [facility] Comment on above: Order Comment: Comme nts: May add to ED labsComments: add to ED labsComments: may add to ED labsmay add to ED labs Performed By: #### L 501.6710, L503.6030, L501.2300, L501.3620, L509.7000, L101.9900, L501.5200, L503.6550, L503.6620, L300.8000, L504.2610 ####[facility] [address] [facility] [place], [place], [id number] Procalcitoninon 07-24-2024 Procalcitonin 0.11 ng/mL High 0.00-0.09 [facility] Comment on above: Result Comment: A [...] ng/mL are obtained. Performed By: #### L 501.6710, L503.6030, L501.2300, L501.3620, L509.7000, L101.9900, L501.5200, L503.6550, L503.6620, L300.8000, L504.2610 ####[facility] [address] [facility] [address] [place], [address] Stool Occult Blood iFOBon STOB Positive Normal [facility] Comment on above: Performed By: #### M 100.7900 ####[facility] [address] [facility] [place], [place], [id number] Type AND Screenon 4 Ab SCREEN GEL TNP Normal [facility] Comment on above: Order Comment: CMV [...] as:NEGATIVE Performed By: #### B RC, BTS, [id number] ####[facility] [address] [place], [address] Urinalysis, Completeon 07-24 BACTERIA 1+ /hpf Normal None Seen [facility] Comment on above: Order Comment: CLEAN CATCH Performed By: #### L 400.0001 ####[facility] [address] [place], [address] WBC 0-5 SEEN Normal 0-5 [facility] Comment on above: Order Comment: CLEAN CATCH Performed By: #### L 400.0001 ####[facility] [address] [place], [address] Urine Sodiumon 07-24-2024 Sodium (U) [Moles/Vol] 23 mmol/L Normal Not Establ. [facility] Comment on above: Performed By: #### L 501.5500, L501.1200 ####[facility] [address] [place], [address] Vitamin D,25 Hydroxyon 07-24 Vitamin D 25-OH 11.5 ng/mL Normal [facility] Comment on above: Result Comment: Greta min D 25(OH) Status Range Deficiency <20 ng/mL (50nmol/L) Insufficiency 20 - 30 ng/mL (50 - 75 nmol/L) Sufficiency 30 - 100 ng/mL (75 - 250 nmol/L) Toxicity >100 ng/mL (>250 nmol/L) Performed By: #### L 500.4050, L509.1000, L3300.0960, L501.9985, L506.1000, L100.0100 ####[facility] [address] [place], [address] 12 Lead EKGon 07-23-2024 12 Lead EKG Normal [facility] BRCon 07-23-2024 RC Normal [facility] Comment on above: Result Comment: [id number] OP RC TRANSFUSED 07/26/24 [id number] OP RC TRANSFUSED 07/26/24 0424 Performed By: #### B RC ####[facility] [address] [place], [address] Result Comment: [id number] OP RC TRANSFUSED 07/24/24 0306 Performed By: #### B RC, BTS, [id number] ####[facility] [address] [place], [id number] Basic Metabolic Profile (BMP )on 07-23-2024 BUN/CRE 12.0 RATIO Normal 08-22 [facility] Comment on above: Order Comment: 'TROP ' Serial specimen #1, #2 or #3: 1 Performed By: #### L 500.2500, L100.0100, L501.4020 ####[facility] [address] [place], [address] CA,Total 5.4 mg/dL Invalid Interpretation Code 8.5-10.1 [facility] Comment on above: Order Comment: 'TROP ' Serial specimen #1, #2 or #3: 1 Result Comment: Crit ical Result(s) Called at: 23:18:14 07/23/2024 by:[facility] Results read [facility] by same. Performed By: #### L 500.2500, L100.0100, L501.4020 ####[facility] [address] [place], [address] Chloride [Moles/Vol] 101 mmol/L Normal 98-107 [facility] Comment on above: Order Comment: 'TROP ' Serial specimen #1, #2 or #3: 1 Performed By: #### L 500.2500, L100.0100, L501.4020 ####[facility] [address] [place], [address] CO2 [Moles/Vol] 29.0 mmol/L Normal 21.0-32.0 [facility] Comment on above: Order Comment: 'TROP ' Serial specimen #1, #2 or #3: 1 Performed By: #### L 500.2500, L100.0100, L501.4020 ####[facility] [address] [place], [address] Creatinine [Mass/Vol] 3.66 mg/dL High 0.55-1.02 [facility] Comment on above: Order Comment: 'TROP ' Serial specimen #1, #2 or #3: 1 Result Comment: The validity of the calculated GFR GFRAA in patients over70 years has not been determined. Clinical correlation isessential. Performed By: #### L 500.2500, L100.0100, L501.4020 ####[facility] [address] [place], [address] EST GFR - AA 16 mL/min Low >60 [facility] Comment on above: Order Comment: 'TROP ' Serial specimen #1, #2 or #3: 1 Result Comment: Afri can Yemeni GFR Calc Performed By: #### L 500.2500, L100.0100, L501.4020 ####[facility] [address] [place], [address] GAP 4 Low 5-15 [facility] Comment on above: Order Comment: 'TROP ' Serial specimen #1, #2 or #3: 1 Performed By: #### L 500.2500, L100.0100, L501.4020 ####[facility] [address] [place], [address] GFR/1.73 sq M.predicted among non-blacks MDRD (S/P/Bld) [Vol rate/Area] 13 mL/min/{1.73_m2} Low >60 [facility] Comment on above: Order Comment: 'TROP ' Serial specimen #1, #2 or #3: 1 Result Comment: Non- GFR Calc Performed By: #### L 500.2500, L100.0100, L501.4020 ####[facility] [address] [place], [address] Glucose [Mass/Vol] 146 mg/dL High 74-106 [facility] Comment on above: Order Comment: 'TROP ' Serial specimen #1, #2 or #3: 1 Result Comment: Fast ing Glucose result greater than or equal to 126 mg/dLsuggests DIABETES MELLITUS per A.D.A. criteria. Performed By: #### L 500.2500, L100.0100, L501.4020 ####[facility] [address] [place], [address] Potassium [Moles/Vol] 5.4 mmol/L High 3.5-5.1 [facility] Comment on above: Order Comment: 'TROP ' Serial specimen #1, #2 or #3: 1 Performed By: #### L 500.2500, L100.0100, L501.4020 ####[facility] [address] [place], [address] Sodium [Moles/Vol] 134 mmol/L Low 136-145 [facility] Comment on above: Order Comment: 'TROP ' Serial specimen #1, #2 or #3: 1 Performed By: #### L 500.2500, L100.0100, L501.4020 ####[facility] [address] [place], [address] Urea nitrogen [Mass/Vol] 44 mg/dL High 7-18 [facility] Comment on above: Order Comment: 'TROP ' Serial specimen #1, #2 or #3: 1 Performed By: #### L 500.2500, L100.0100, L501.4020 ####[facility] [address] [place], [address] Bedside Glucoseon 07-23-2024 FINGERSTICK GLU 120 mg/dL High 74-106 [facility] Comment on above: Result Comment: SHELLY GEMENT OF PATIENT CARE PER NURSING PROTOCOL Performed By: #### L 501.080 ####[facility] [address] [place], [address] FINGERSTICK GLU 163 mg/dL High 74-106 [facility] Comment on above: Result Comment: SHELLY GEMENT OF PATIENT CARE PER NURSING PROTOCOL Performed By: #### L 501.080 ####[facility] [address] [place], [address] CBC W/Diff, Automatedon 07-05 Absolute Lymph 1.37 X10 3/uL Normal 0.83-4.51 [facility] Comment on above: Performed By: #### L 500.2500, L100.0100, L501.4020 ####[facility] [address] [place], [address] Absolute Neut 4.2 X10 3/uL Normal 2.0-7.7 [facility] Comment on above: Performed By: #### L 500.2500, L100.0100, L501.4020 ####[facility] [address] [place], [address] Basophils/100 WBC (Bld) 0.5 % Normal 0-1 [facility] Comment on above: Performed By: #### L 500.2500, L100.0100, L501.4020 ####[facility] [address] [place], [address] Eosinophils/100 WBC (Bld) 4.6 % Normal 0-5 [facility] Comment on above: Performed By: #### L 500.2500, L100.0100, L501.4020 ####[facility] [address] [place], [address] Erythrocyte distribution width (RBC) [Ratio] 13.5 % Normal 11.6-14.6 [facility] Comment on above: Performed By: #### L 500.2500, L100.0100, L501.4020 ####[facility] [address] [place], [address] Hematocrit (Bld) [Volume fraction] 24.0 % Low 37-47 [facility] Comment on above: Performed By: #### L 500.2500, L100.0100, L501.4020 ####[facility] [address] [place], [address] Hemoglobin (Bld) [Mass/Vol] 7.0 g/dL Low 12.0-15.0 [facility] Comment on above: Performed By: #### L 500.2500, L100.0100, L501.4020 ####[facility] [address] [place], [address] IG% 0.600 Normal 0.0-0.9 [facility] Comment on above: Result Comment: IG% - Immature Granulocytes (promyelocytes, myelocytes andmetamyelocytes) > 1% indicates that a LEFT SHIFT is Present. Performed By: #### L 500.2500, L100.0100, L501.4020 ####[facility] [address] [place], [address] Lymphocytes/100 WBC (Bld) 21.1 % Normal 19-41 [facility] Comment on above: Performed By: #### L 500.2500, L100.0100, L501.4020 ####[facility] [address] [place], [address] MCH (RBC) [Entitic mass] 28.3 pg Normal 27.0-32.0 [facility] Comment on above: Performed By: #### L 500.2500, L100.0100, L501.4020 ####[facility] [address] [place], [address] MCHC (RBC) [Mass/Vol] 29.2 g/dL Low 32-36 [facility] Comment on above: Performed By: #### L 500.2500, L100.0100, L501.4020 ####[facility] [address] [place], [address] MCV (RBC) [Entitic vol] 97.2 fL Normal 81-99 [facility] Comment on above: Performed By: #### L 500.2500, L100.0100, L501.4020 ####[facility] [address] [place], [address] Monocytes/100 WBC (Bld) 7.7 % Normal 0-10 [facility] Comment on above: Performed By: #### L 500.2500, L100.0100, L501.4020 ####[facility] [address] [place], [address] Neutrophils/100 WBC (Bld) 65.5 % Normal 47-70 [facility] Comment on above: Performed By: #### L 500.2500, L100.0100, L501.4020 ####[facility] [address] [place], [address] Nucleated RBC (Bld) [#/Vol] 0 10*3/uL Normal 0-5 [facility] Comment on above: Performed By: #### L 500.2500, L100.0100, L501.4020 ####[facility] [address] [place], [address] Platelet mean volume (Bld) [Entitic vol] 10.2 fL Normal 6.2-12.0 [facility] Comment on above: Performed By: #### L 500.2500, L100.0100, L501.4020 ####[facility] [address] [place], [address] Platelets (Bld) [#/Vol] 182 10*3/uL Normal 150-450 [facility] Comment on above: Performed By: #### L 500.2500, L100.0100, L501.4020 ####[facility] [address] [place], [address] RBC (Bld) [#/Vol] 2.47 10*6/uL Low 4.2-5.4 [facility] Comment on above: Performed By: #### L 500.2500, L100.0100, L501.4020 ####[facility] [address] [place], [address] RDW SD 48.6 fl High 35.1-43.9 [facility] Comment on above: Performed By: #### L 500.2500, L100.0100, L501.4020 ####[facility] [address] [place], [address] WBC (Bld) [#/Vol] 6.5 10*3/uL Normal 4.4-11.0 [facility] Comment on above: Performed By: #### L 500.2500, L100.0100, L501.4020 ####[facility] [address] [place], [address] Chest PA and Lateralon 07-23 Chest PA and Lateral Normal [facility] Emergency Department Summary on 07-23-2024 Emergency Department Summary Normal [facility] H AND P Exam - Hospitaliston 07-23-2024 H&P Exam - Hospitalist Normal [facility] L501.4020on 07-23-2024 TROPONIN-I HS 30 pg/mL Normal 3.0-54.0 [facility] Comment on above: Order Comment: 'TROP ' Serial specimen #1, #2 or #3: 1 Result Comment: Ry adhikari Note: New Test Units and Gender Specific Reference Ranges. For more information see Policy Stat Procedure [place] High Sensitivity Troponin (TNIH) and attachments. Performed By: #### L 500.2500, L100.0100, L501.4020 ####[facility] [address] [place], [address] Urinalysis, Completeon 07-23 EPI,SQUAMOUS 0 SEEN Normal 5-10 [facility] Comment on above: Order Comment: CLEAN CATCH Performed By: #### L 400.0001 ####[facility] [address] [place], [address] Mucus Ql (Urine sed) 0 SEEN Normal [facility] Comment on above: Order Comment: CLEAN CATCH Performed By: #### L 400.0001 ####[facility] [address] [place], [address] RBC 0 SEEN Normal 0-5 [facility] Comment on above: Order Comment: CLEAN CATCH Performed By: #### L 400.0001 ####[facility] [address] [place], [address] Basophil percentageOrdered B y: Christy Fontenot on 01-15-2024 Basophil percentage 3.7 mg/dL 2.5-4.9 [facility] Bilirubin [Mass/Vol] 0.50 mg/dL 0.20-1.00 [facility] Comment on above: For patients on eltr ombopag therapy, use of Dimension [place] TBIL is not recommended. Chloride [Moles/Vol] 105 mmol/L 98-107 [facility] Cholesterol [Mass/Vol] 145 mg/dL <200 [facility] Comment on above: <200 mg/dL Desirable 200-240 mg/dL Borderline >240 mg/dL High Risk Glucose [Mass/Vol] 180 mg/dL 74-106 [facility] Comment on above: Fasting Glucose resu lt greater than or equal to 126 mg/dL suggests DIABETES MELLITUS per A.D.A. criteria. Hemoglobin (Bld) [Mass/Vol] 11.4 g/dL 12.0-15.0 [facility] Potassium [Moles/Vol] 4.8 mmol/L 3.5-5.1 [facility] Protein [Mass/Vol] 6.8 g/dL 6.4-8.2 [facility] Sodium [Moles/Vol] 140 mmol/L 136-145 [facility] Triglyceride [Mass/Vol] 132 mg/dL <199 [facility] Comment on above: The drugs N-Acetylcy steine and Metamizole may falsely depress this assay.Serum Triglycerides Reference Interval Normal <150 mg/dL Borderline high 150 - 199 mg/dL High 200 - 499 mg/dL Very High > or = 500 mg/dL WBC (Bld) [#/Vol] 6.9 10*3/uL 4.4-11.0 [facility] Determination of erythrocyte mean corpuscular volume (MCV)Ordered By: Christy Fontenot on 01-15-2024 MCV (RBC) [Entitic vol] 95.9 fL 81-99 [facility] Direct bilirubinOrdered By: Christy Fontenot on 01-15-2024 Bilirubin.direct [Mass/Vol] 0.10 mg/dL 0.00-0.30 [facility] Erythrocyte distribution wid th ratioOrdered By: Christy Fontenot on 01-15-2024 Erythrocyte distribution width (RBC) [Ratio] 12.3 % 11.6-14.6 [facility] Erythrocyte distribution wid th standard deviationOrdered By: Christy Fontenot on 01-15-2024 Erythrocyte distribution width (RBC) [Entitic vol] 43.2 fL 35.1-43.9 [facility] Hematocrit Auto (Bld) [Volum e fraction]Ordered By: Christy Fontenot on 01-15-2024 Hematocrit (Bld) [Volume fraction] 37.6 % 37-47 [facility] Laboratory - Chemistry and C hemistry - challengeOrdered By: Christy Fontenot on 01-15-2024 Albumin/Globulin [Mass ratio] 0.9 {ratio} 0.9-2.4 [facility] ALP [Catalytic activity/Vol] 82 U/L 45-117 [facility] ALT [Catalytic activity/Vol] 14 U/L 13-56 [facility] Cholesterol in HDL [Mass/Vol] 59 mg/dL >40 [facility] Comment on above: The drugs N-Acetylcy steine and Metamizole may falsely depress this assay. Reference Range HDL <40 mg/dL Low HDL Cholesterol HDL >or= 60 mg/dL High HDL Cholesterol Cholesterol in LDL [Mass/Vol] 60 mg/dL 0-130 [facility] CO2 [Moles/Vol] 31.0 mmol/L 21.0-32.0 [facility] Cobalamin (Vitamin B12) [Mass/Vol] 753 pg/mL 211-911 [facility] Globulin (S) [Mass/Vol] 3.5 g/dL 2.2-4.2 [facility] Urea nitrogen/Creatinine [Mass ratio] 11.8 mg/mg 10-20 [facility] Laboratory - Hematology and Cell countsOrdered By: Christy Fontenot on 01-15-2024 MCH (RBC) [Entitic mass] 29.1 pg 27.0-32.0 [facility] MCHC (RBC) [Mass/Vol] 30.3 g/dL 32-36 [facility] Platelet mean volume (Bld) [Entitic vol] 10.6 fL 6.2-12.0 [facility] Platelets (Bld) [#/Vol] 188 10*3/uL 150-450 [facility] No Panel InformationOrdered By: Christy Fontenot on 01-15-2024 Estimated GFR (MDRD) Amer 22 mL/min >60 [facility] Comment on above: GFR Calc Estimated GFR (MDRD) Non-Af Amer 18 mL/min >60 [facility] Comment on above: Non- GFR Calc Parathyroid Hormone (Intact) 137.2 pg/mL 18.4-80.1 [facility] VLDL Cholesterol 26 mg/dL 5-40 [facility] RBC Auto (Bld) [#/Vol]Ordere d By: Christy Fontenot on 01-15-2024 RBC (Bld) [#/Vol] 3.92 10*6/uL 4.2-5.4 [facility] Serum or plasma calcium lesly urement (mass/volume)Ordered By: Christy Fontenot on 01-15-2024 Calcium [Mass/Vol] 9.1 mg/dL 8.5-10.1 [facility] Serum or plasma creatinine m easurement (mass/volume)Ordered By: Christy Fontenot on 01-15-2024 Creatinine [Mass/Vol] 2.79 mg/dL 0.55-1.02 [facility] Comment on above: The validity of the calculated GFR & GFRAA in patients over 70 years has not been determined. Clinical correlation is essential. Serum or plasma thyroid stim ulating hormone (TSH) measurement (units/volume)Ordered By: Christy Fontenot on 01-15-2024 TSH Qn 2.34 uIU/mL 0.358-3.74 [facility] Serum or plasma urea nitroge n measurement (mass/volume)Ordered By: Christy Fontenot on 01-15-2024 Urea nitrogen [Mass/Vol] 33 mg/dL 7-18 [facility] Thin prep Papanicolaou smear with manual screeningOrdered By: Christy Fontenot on 01-15-2024 Thin prep Papanicolaou smear with manual screening 3.3 g/dL 3.2-5.0 [facility] Thin prep Papanicolaou smear with manual screening 16 U/L 15-37 [facility] Thin prep Papanicolaou smear with manual screening 4 5-15 [facility] Laboratory - Hematology and Cell countson 12-03-2023 HbA1c (Bld) [Mass fraction] 8.6 % 4.2-6.3 [facility] Basophil percentageOrdered B y: Christy Fontenot on 11-18-2023 Basophil percentage 3.3 mg/dL 2.5-4.9 [facility] Chloride [Moles/Vol] 108 mmol/L 98-107 [facility] Glucose [Mass/Vol] 359 mg/dL 74-106 [facility] Comment on above: Glucose result great er than or equal to 200 mg/dLsuggests DIABETES MELLITUS per A.D.A. criteria. Potassium [Moles/Vol] 5.6 mmol/L 3.5-5.1 [facility] Sodium [Moles/Vol] 139 mmol/L 136-145 [facility] Laboratory - Chemistry and C hemistry - challengeOrdered By: Christy Fontenot on 11-18-2023 CO2 [Moles/Vol] 27.0 mmol/L 21.0-32.0 [facility] Urea nitrogen/Creatinine [Mass ratio] 18.5 mg/mg 10-20 [facility] No Panel InformationOrdered By: Christy Fontenot on 11-18-2023 Estimated GFR (MDRD) Amer 22 mL/min >60 [facility] Comment on above: GFR Calc Estimated GFR (MDRD) Non-Af Amer 19 mL/min >60 [facility] Comment on above: Non- GFR Calc Serum or plasma calcium lesly urement (mass/volume)Ordered By: Christy Fontenot on 11-18-2023 Calcium [Mass/Vol] 8.8 mg/dL 8.5-10.1 [facility] Serum or plasma creatinine m easurement (mass/volume)Ordered By: Christy Fontenot on 11-18-2023 Creatinine [Mass/Vol] 2.75 mg/dL 0.55-1.02 [facility] Comment on above: The validity of the calculated GFR & GFRAA in patients over 70 years has not been determined. Clinical correlation is essential. Serum or plasma urea nitroge n measurement (mass/volume)Ordered By: Christy Fontenot on 11-18-2023 Urea nitrogen [Mass/Vol] 51 mg/dL 7-18 [facility] Thin prep Papanicolaou smear with manual screeningOrdered By: Christy Fontenot on 11-18-2023 Thin prep Papanicolaou smear with manual screening 2.9 g/dL 3.2-5.0 [facility] Bacteria identified Respirat ory culture Nom (Unsp spec)Ordered By: Jeanna Davis on 10-29-2023 Respiratory Culture Pseudomonas aeruginosa [facility] Respiratory Culture Staphylococcus aureus [facility] Respiratory Culture Pseudomonas aeruginosa [facility] Respiratory Culture Staphylococcus aureus [facility] Gram stain for investigation of transfusion reactionOrdered By: Jeanna Davis on 10-29-2023 Microscopic observation Gram stain Nom (Unsp spec) [facility] Microscopic observation Gram stain Nom (Unsp spec) [facility] 24 hour urine protein measur ement (mass/time)Ordered By: Christy Fontenot on 10-13-2023 Protein (24H U) [Mass/Time] 2213.8 mg/24HR 0-151 [facility] 24 hour urine protein measur ement (mass/volume)Ordered By: Christy Fontenot on 10-13-2023 Protein (24H U) [Mass/Vol] 177.1 mg/dL 0.0-11.8 [facility] Creatinine clearanceOrdered By: Christy Fontenot on 10-13-2023 Creatinine renal clearance Unsp time (U+S/P) [Vol/Time] 21 ml/min 100-200 [facility] Culture, urineOrdered By: Aashish Fontenot on 10-13-2023 Bacteria identified Cx Nom (U) Culture exhibits no growth. [facility] Bacteria identified Cx Nom (U) Culture exhibits no growth. [facility] Laboratory - Specimen inform ationOrdered By: Christy Fontenot on 10-13-2023 Collection duration (U) 24.0 HOURS 24.0-24.0 [facility] Comment on above: *Additional results available. Contact laboratory/see report* No Panel InformationOrdered By: Christy Fontenot on 10-13-2023 Estimated GFR (MDRD) Amer 25 mL/min >60 [facility] Comment on above: GFR Calc Estimated GFR (MDRD) Non-Af Amer 21 mL/min >60 [facility] Comment on above: Non- GFR Calc Timed Urine Volume 1250 mL [facility] Comment on above: *Additional results available. Contact laboratory/see report* Thin prep Papanicolaou smear with manual screeningOrdered By: Christy Fontenot on 10-13-2023 Creatinine (U) [Mass/Vol] 2.5 mg/dL 0.6-1.0 [facility] Urine creatinine measurement (mass/volume)Ordered By: Christy Fontenot on 10-13-2023 Creatinine (U) [Mass/Vol] 61.4 mg/dL NO RANGE EST. [facility] Basophil percentageOrdered B y: Christy Fontenot on 10-09-2023 Basophil percentage 10-25 SEEN /hpf 0-5 [facility] Bilirubin Test strip Ql (U)O rdered By: Christy Fontenot on 10-09-2023 Bilirubin Ql (U) Negative Negative [facility] Ketones Test strip Ql (U)Ord ered By: Christy Fontenot on 10-09-2023 Ketones Ql (U) Negative Negative [facility] Mucus LM Ql (Urine sed)Order ed By: Christy Fontenot on 10-09-2023 Mucus Ql (Urine sed) 0 SEEN /hpf [facility] Nitrite Test strip Ql (U)Ord ered By: Christy Fontenot on 10-09-2023 Nitrite Ql (U) Negative Negative [facility] Protein Test strip Ql (U)Ord ered By: Christy Fontenot on 10-09-2023 Protein Ql (U) 100 mg/dl Negative [facility] Squamous epithelial cells de tection in urine sediment by light microscopyOrdered By: Christy Fontenot on 10-09-2023 Epithelial cells.squamous LM Ql (Urine sed) 0-5 SEEN /hpf 5-10 [facility] Urine blood detectionOrdered By: Christy Fontenot on 10-09-2023 RBC Ql (U) 10 /ul Negative [facility] RBC Ql (U) 0-5 SEEN /hpf 0-5 [facility] Urine clarityOrdered By: Malcolm Fontenot on 10-09-2023 Clarity (U) Sl. Cloudy Clear [facility] Urine color determinationOrd ered By: Christy Fontenot on 10-09-2023 Color (U) Yellow Yellow [facility] Urine glucose detectionOrder ed By: Christy Fontenot on 10-09-2023 Glucose Ql (U) 250 mg/dl Normal [facility] Urine leukocyte esterase det ection by dipstickOrdered By: Christy Fontenot on 10-09-2023 Leukocyte esterase Test strip Ql (U) 100 /ul Negative [facility] Urine pHOrdered By: Mary Fontenot on 10-09-2023 pH (U) 5.0 [pH] 5.0 - 8.0 [facility] Urine sediment bacteria coun t by microscopy (number/high power field)Ordered By: Christy Fontenot on 10-09-2023 Bacteria LM.HPF (Urine sed) [#/Area] 0 /[HPF] None Seen [facility] Urine specific gravity measu rementOrdered By: Christy Fontenot on 10-09-2023 Specific gravity (U) [Rel density] 1.015 1.002-1.030 [facility] Urobilinogen Auto test strip Ql (U)Ordered By: Christy Fontenot on 10-09-2023 Urobilinogen Ql (U) Normal mg/dl Normal [facility] Basophil percentageOrdered B y: Christy Fontenot on 10-06-2023 Basophil percentage 2.9 mg/dL 2.5-4.9 [facility] Chloride [Moles/Vol] 104 mmol/L 98-[address] [facility] Glucose [Mass/Vol] 273 mg/dL 74-106 [facility] Comment on above: Glucose result great er than or equal to 200 mg/dLsuggests DIABETES MELLITUS per A.D.A. criteria. Potassium [Moles/Vol] 4.8 mmol/L 3.5-5.1 [facility] Sodium [Moles/Vol] 139 mmol/L 136-145 [facility] WBC (Bld) [#/Vol] 10.3 10*3/uL 4.4-11.0 [facility] Blood erythrocytes count (nu mber/volume)Ordered By: Christy Fontenot on 10-06-2023 RBC (Bld) [#/Vol] 3.48 10*6/uL 4.2-5.4 [facility] Blood hemoglobin measurement (mass/volume)Ordered By: Christy Fontenot on 10-06-2023 Hemoglobin (Bld) [Mass/Vol] 10.5 g/dL 12.0-15.0 [facility] Blood platelet mean volumeOr dered By: Christy Fontenot on 10-06-2023 Platelet mean volume (Bld) [Entitic vol] 10.5 fL 6.2-12.0 [facility] Determination of erythrocyte mean corpuscular volume (MCV)Ordered By: Christy Fontenot on 10-06-2023 MCV (RBC) [Entitic vol] 99.1 fL 81-99 [facility] Hematocrit Auto (Bld) [Volum e fraction]Ordered By: Christy Fontenot on 10-06-2023 Hematocrit (Bld) [Volume fraction] 34.5 % 37-47 [facility] Laboratory - Chemistry and C hemistry - challengeOrdered By: Christy Fontenot on 10-06-2023 CO2 [Moles/Vol] 30.0 mmol/L 21.0-32.0 [facility] Urea nitrogen/Creatinine [Mass ratio] 13.7 mg/mg 10-20 [facility] Laboratory - Hematology and Cell countsOrdered By: Christy Fontenot on 10-06-2023 Erythrocyte distribution width (RBC) [Entitic vol] 45.4 fL 35.1-43.9 [facility] Erythrocyte distribution width (RBC) [Ratio] 12.6 % 11.6-14.6 [facility] MCH (RBC) [Entitic mass] 30.2 pg 27.0-32.0 [facility] MCHC Auto (RBC) [Mass/Vol]Or dered By: Christy Fontenot on 10-06-2023 MCHC (RBC) [Mass/Vol] 30.4 g/dL 32-36 [facility] No Panel InformationOrdered By: Christy Fontenot on 10-06-2023 Estimated GFR (MDRD) Amer 26 mL/min >60 [facility] Comment on above: GFR Calc Estimated GFR (MDRD) Non-Af Amer 22 mL/min >60 [facility] Comment on above: Non- GFR Calc Parathyroid Hormone (Intact) 53.6 pg/mL 18.4-80.1 [facility] Platelets bldOrdered By: Malcolm Fontenot on 10-06-2023 Platelets (Bld) [#/Vol] 180 10*3/uL 150-450 [facility] Serum or plasma albumin lesly urement (mass/volume)Ordered By: Christy Fontenot on 10-06-2023 Albumin [Mass/Vol] 2.9 g/dL 3.2-5.0 [facility] Serum or plasma calcium lesly urement (mass/volume)Ordered By: Christy Fontenot on 10-06-2023 Calcium [Mass/Vol] 9.1 mg/dL 8.5-10.1 [facility] Serum or plasma creatinine m easurement (mass/volume)Ordered By: Christy Fontenot on 10-06-2023 Creatinine [Mass/Vol] 2.41 mg/dL 0.55-1.02 [facility] Comment on above: The validity of the calculated GFR & GFRAA in patients over 70 years has not been determined. Clinical correlation is essential. Serum or plasma urea nitroge n measurement (mass/volume)Ordered By: Christy Fontenot on 10-06-2023 Urea nitrogen [Mass/Vol] 33 mg/dL 7-18 [facility] Urine creatinine measurement (mass/volume)Ordered By: Christy Fontenot on 10-06-2023 Creatinine (U) [Mass/Vol] 65.00 mg/dL NO RANGE EST. [facility] Urine protein measurement (m ass/volume)Ordered By: Christy Fontenot on 10-06-2023 Protein (U) [Mass/Vol] 229.6 mg/dL 0.0-11.8 [facility] Urine protein/creatinine mas s ratioOrdered By: Christy Fontenot on 10-06-2023 Protein/Creatinine (U) [Mass ratio] 3532 mg/g CRE 0-200 [facility] Laboratory - Hematology and Cell countson 07-14-2023 HbA1c (Bld) [Mass fraction] 8.7 % 4.2-6.3 [facility] Basophil percentageOrdered B y: Christy Fontenot on 06-19-2023 Basophil percentage 3.3 mg/dL 2.5-4.9 [facility] Chloride [Moles/Vol] 107 mmol/L 98-107 [facility] Glucose [Mass/Vol] 251 mg/dL 74-106 [facility] Comment on above: Glucose result great er than or equal to 200 mg/dLsuggests DIABETES MELLITUS per A.D.A. criteria. Potassium [Moles/Vol] 5.4 mmol/L 3.5-5.1 [facility] Sodium [Moles/Vol] 140 mmol/L 136-145 [facility] Laboratory - Chemistry and C hemistry - challengeOrdered By: Christy Fontenot on 06-19-2023 CO2 [Moles/Vol] 32.0 mmol/L 21.0-32.0 [facility] Urea nitrogen/Creatinine [Mass ratio] 14.5 mg/mg 10-20 [facility] No Panel InformationOrdered By: Christy Fontenot on 06-19-2023 Estimated GFR (MDRD) Amer 27 mL/min >60 [facility] Comment on above: GFR Calc Estimated GFR (MDRD) Non-Af Amer 22 mL/min >60 [facility] Comment on above: Non- GFR Calc Parathyroid Hormone (Intact) 118.0 pg/mL 18.4-80.1 [facility] Serum or plasma albumin lesly urement (mass/volume)Ordered By: Christy Fontenot on 06-19-2023 Albumin [Mass/Vol] 3.0 g/dL 3.2-5.0 [facility] Serum or plasma calcium lesly urement (mass/volume)Ordered By: Christy Fontenot on 06-19-2023 Calcium [Mass/Vol] 8.4 mg/dL 8.5-10.1 [facility] Serum or plasma creatinine m easurement (mass/volume)Ordered By: Christy Fontenot on 06-19-2023 Creatinine [Mass/Vol] 2.34 mg/dL 0.55-1.02 [facility] Comment on above: The validity of the calculated GFR & GFRAA in patients over 70 years has not been determined. Clinical correlation is essential. Serum or plasma urea nitroge n measurement (mass/volume)Ordered By: Christy Fontenot on 06-19-2023 Urea nitrogen [Mass/Vol] 34 mg/dL 7-18 [facility] Urine creatinine measurement (mass/volume)Ordered By: Christy Fonteont on 06-19-2023 Creatinine (U) [Mass/Vol] 85.10 mg/dL NO RANGE EST. [facility] Urine protein measurement (m ass/volume)Ordered By: Christy Fontenot on 06-19-2023 Protein (U) [Mass/Vol] 247.0 mg/dL 0.0-11.8 [facility] Urine protein/creatinine mas s ratioOrdered By: Christy Fontenot on 06-19-2023 Protein/Creatinine (U) [Mass ratio] 2902 mg/g CRE 0-200 [facility] Basophil percentageOrdered B y: Sin Lujan on 03-17-2023 Basophil percentage 3.4 mg/dL 2.5-4.9 [facility] Chloride [Moles/Vol] 100 mmol/L 98-107 [facility] Glucose [Mass/Vol] 151 mg/dL 74-106 [facility] Comment on above: Fasting Glucose resu lt greater than or equal to 126 mg/dL suggests DIABETES MELLITUS per A.D.A. criteria. Potassium [Moles/Vol] 5.1 mmol/L 3.5-5.1 [facility] Sodium [Moles/Vol] 137 mmol/L 136-145 [facility] Laboratory - Chemistry and C hemistry - challengeOrdered By: Sin Lujan on 03-17-2023 CO2 [Moles/Vol] 32.0 mmol/L 21.0-32.0 [facility] Magnesium [Mass/Vol] 2.5 mg/dL 1.6-2.6 [facility] Urea nitrogen/Creatinine [Mass ratio] 16.1 mg/mg 10-20 [facility] No Panel InformationOrdered By: Sin Lujan on 03-17-2023 Estimated GFR (MDRD) Amer 24 mL/min >60 [facility] Comment on above: GFR Calc Estimated GFR (MDRD) Non-Af Amer 20 mL/min >60 [facility] Comment on above: Non- GFR Calc Parathyroid Hormone (Intact) 39.8 pg/mL 18.4-80.1 [facility] Serum or plasma albumin lesly urement (mass/volume)Ordered By: Sin Lujan on 03-17-2023 Albumin [Mass/Vol] 3.3 g/dL 3.2-5.0 [facility] Serum or plasma calcium lesly urement (mass/volume)Ordered By: Sin Lujan on 03-17-2023 Calcium [Mass/Vol] 9.6 mg/dL 8.5-10.1 [facility] Serum or plasma creatinine m easurement (mass/volume)Ordered By: Sin Lujan on 03-17-2023 Creatinine [Mass/Vol] 2.61 mg/dL 0.55-1.02 [facility] Comment on above: The validity of the calculated GFR & GFRAA in patients over 70 years has not been determined. Clinical correlation is essential. Serum or plasma urea nitroge n measurement (mass/volume)Ordered By: Sin Lujan on 03-17-2023 Urea nitrogen [Mass/Vol] 42 mg/dL 7-18 [facility] Urine creatinine measurement (mass/volume)Ordered By: Sin Lujan on 03-17-2023 Creatinine (U) [Mass/Vol] 29.80 mg/dL NO RANGE EST. [facility] Urine protein measurement (m ass/volume)Ordered By: Sin Lujan on 03-17-2023 Protein (U) [Mass/Vol] 75.7 mg/dL 0.0-11.8 [facility] Urine protein/creatinine mas s ratioOrdered By: Sin Lujan on 03-17-2023 Protein/Creatinine (U) [Mass ratio] 2540 mg/g CRE 0-200 [facility] Basophil percentageOrdered B y: Dr. Lujan on 02-26-2023 Basophil percentage 4.1 mg/dL 2.5-4.9 [facility] Bilirubin [Mass/Vol] 0.40 mg/dL 0.20-1.00 [facility] Comment on above: For patients on eltr ombopag therapy, use of Dimension [place] TBIL is not recommended. Chloride [Moles/Vol] 105 mmol/L 98-107 [facility] Glucose [Mass/Vol] 270 mg/dL 74-106 [facility] Comment on above: Glucose result great er than or equal to 200 mg/dLsuggests DIABETES MELLITUS per A.D.A. criteria. Potassium [Moles/Vol] 5.0 mmol/L 3.5-5.1 [facility] Protein [Mass/Vol] 6.9 g/dL 6.4-8.2 [facility] Sodium [Moles/Vol] 134 mmol/L 136-145 [facility] WBC (Bld) [#/Vol] 5.6 10*3/uL 4.4-11.0 [facility] Blood erythrocytes count (nu mber/volume)Ordered By: Dr. Lujan on 02-26-2023 RBC (Bld) [#/Vol] 4.10 10*6/uL 4.2-5.4 [facility] Blood hemoglobin measurement (mass/volume)Ordered By: Dr. Lujan on 02-26-2023 Hemoglobin (Bld) [Mass/Vol] 12.1 g/dL 12.0-15.0 [facility] Blood platelet mean volumeOr dered By: Dr. Lujan on 02-26-2023 Platelet mean volume (Bld) [Entitic vol] 10.2 fL 6.2-12.0 [facility] Determination of erythrocyte mean corpuscular volume (MCV)Ordered By: Dr. Lujan on 02-26-2023 MCV (RBC) [Entitic vol] 95.9 fL 81-99 [facility] Hematocrit Auto (Bld) [Volum e fraction]Ordered By: Dr. Lujan on 02-26-2023 Hematocrit (Bld) [Volume fraction] 39.3 % 37-47 [facility] Laboratory - Chemistry and C hemistry - challengeOrdered By: Dr. Lujan on 02-26-2023 ALP [Catalytic activity/Vol] 88 U/L 45-117 [facility] ALT [Catalytic activity/Vol] 16 U/L 13-56 [facility] CO2 [Moles/Vol] 26.0 mmol/L 21.0-32.0 [facility] Globulin (S) [Mass/Vol] 3.8 g/dL 2.2-4.2 [facility] Urea nitrogen/Creatinine [Mass ratio] 17.7 mg/mg 10-20 [facility] Laboratory - Hematology and Cell countsOrdered By: Dr. Lujan on 02-26-2023 Erythrocyte distribution width (RBC) [Entitic vol] 49.3 fL 35.1-43.9 [facility] Erythrocyte distribution width (RBC) [Ratio] 14.0 % 11.6-14.6 [facility] MCH (RBC) [Entitic mass] 29.5 pg 27.0-32.0 [facility] MCHC Auto (RBC) [Mass/Vol]Or dered By: Dr. Lujan on 02-26-2023 MCHC (RBC) [Mass/Vol] 30.8 g/dL 32-36 [facility] No Panel InformationOrdered By: Dr. Lujan on 02-26-2023 Estimated GFR (MDRD) Amer 29 mL/min >60 [facility] Comment on above: GFR Calc Estimated GFR (MDRD) Non-Af Amer 24 mL/min >60 [facility] Comment on above: Non- GFR Calc Thyroid Stimulating Hormone (TSH) 2.30 uIU/mL 0.358-3.74 [facility] Vitamin D 25-Hydroxy 54.6 ng/mL [facility] Comment on above: Vitamin D 25(OH) Sta tus Range Deficiency <20 ng/mL (50nmol/L) Insufficiency 20 - 30 ng/mL (50 - 75 nmol/L) Sufficiency 30 - 100 ng/mL (75 - 250 nmol/L) Toxicity >100 ng/mL (>250 nmol/L) No Panel InformationOrdered By: Dr. Fontenot on 02-26-2023 Parathyroid Hormone (Intact) 110.4 pg/mL 18.4-80.1 [facility] Platelets bldOrdered By: Dr. Lujan on 02-26-2023 Platelets (Bld) [#/Vol] 217 10*3/uL 150-450 [facility] Serum or plasma albumin lesly urement (mass/volume)Ordered By: Dr. Lujan on 02-26-2023 Albumin [Mass/Vol] 3.1 g/dL 3.2-5.0 [facility] Serum or plasma albumin/glob ulin mass ratioOrdered By: Dr. Lujan on 02-26-2023 Albumin/Globulin [Mass ratio] 0.8 {ratio} 0.9-2.4 [facility] Serum or plasma calcium lesly urement (mass/volume)Ordered By: Dr. Lujan on 02-26-2023 Calcium [Mass/Vol] 8.7 mg/dL 8.5-10.1 [facility] Serum or plasma creatinine m easurement (mass/volume)Ordered By: Dr. Lujan on 02-26-2023 Creatinine [Mass/Vol] 2.20 mg/dL 0.55-1.02 [facility] Comment on above: The validity of the calculated GFR & GFRAA in patients over 70 years has not been determined. Clinical correlation is essential. Serum or plasma urea nitroge n measurement (mass/volume)Ordered By: Dr. Lujan on 02-26-2023 Urea nitrogen [Mass/Vol] 39 mg/dL 7-18 [facility] Thin prep Papanicolaou smear with manual screeningOrdered By: Dr. Lujan on 02-26-2023 Thin prep Papanicolaou smear with manual screening 15 U/L 15-37 [facility] Thin prep Papanicolaou smear with manual screening 3 5-15 [facility] Laboratory - Hematology and Cell countson 01-01-2023 HbA1c (Bld) [Mass fraction] 9.0 % [facility] Absolute lymphocyte counton 10-11-2022 Lymphocytes Auto (Unsp spec) [#/Vol] 2.65 10*3/uL 0.83-4.51 [facility] Work Phone: Basophil percentageon 2021 Amylase [Catalytic activity/Vol] 51 U/L 25-115 [facility] Work Phone: Basophils/100 WBC (Bld) 1.2 % 0-1 [facility] Work Phone: Bilirubin [Mass/Vol] 0.30 mg/dL 0.20-1.00 [facility] Work Phone: Comment on above: For patients on eltr ombopag therapy, use of Dimension [place] TBIL is not recommended. Chloride [Moles/Vol] 101 mmol/L 98-107 [facility] Work Phone: Cholesterol [Mass/Vol] 266 mg/dL <200 [facility] Work Phone: Comment on above: <200 mg/dL Desirable 200-240 mg/dL Borderline >240 mg/dL High Risk Eosinophils/100 WBC (Bld) 8.5 % 0-5 [facility] Work Phone: Glucose [Mass/Vol] 206 mg/dL 74-106 [facility] Work Phone: Comment on above: Glucose result great er than or equal to 200 mg/dLsuggests DIABETES MELLITUS per A.D.A. criteria. Neutrophils (Bld) [#/Vol] 3.7 10*3/uL 2.0-7.7 [facility] Work Phone: Neutrophils/100 WBC (Bld) 49.0 % 47-70 [facility] Work Phone: Potassium [Moles/Vol] 4.2 mmol/L 3.5-5.1 [facility] Work Phone: Protein [Mass/Vol] 6.9 g/dL 6.4-8.2 [facility] Work Phone: Sodium [Moles/Vol] 138 mmol/L 136-145 [facility] Work Phone: Triglyceride [Mass/Vol] 198 mg/dL <199 [facility] Work Phone: Comment on above: The drugs N-Acetylcy steine and Metamizole may falsely depress this assay.Serum Triglycerides Reference Interval Normal <150 mg/dL Borderline high 150 - 199 mg/dL High 200 - 499 mg/dL Very High > or = 500 mg/dL WBC (Bld) [#/Vol] 7.5 10*3/uL 4.4-11.0 [facility] Work Phone: Blood erythrocytes count (nu mber/volume)on 10-11-2022 RBC (Bld) [#/Vol] 4.53 10*6/uL 4.2-5.4 [facility] Work Phone: Blood hemoglobin measurement (mass/volume)on 10-11-2022 Hemoglobin (Bld) [Mass/Vol] 13.4 g/dL 12.0-15.0 [facility] Work Phone: Blood lymphocytes/100 leukoc yteson 10-11-2022 Lymphocytes/100 WBC (Bld) 35.2 % 19-41 [facility] Work Phone: Blood monocytes/100 leukocyt eson 10-11-2022 Monocytes/100 WBC (Bld) 5.8 % 0-10 [facility] Work Phone: Blood platelet mean volumeon 10-11-2022 Platelet mean volume (Bld) [Entitic vol] 10.5 fL 6.2-12.0 [facility] Work Phone: Determination of erythrocyte mean corpuscular volume (MCV)on 10-11-2022 MCV (RBC) [Entitic vol] 96.9 fL 81-99 [facility] Work Phone: Erythrocyte sedimentation ra darek 10-11-2022 ESR (Bld) [Velocity] 38 mm/h 0-30 [facility] Work Phone: Hematocrit Auto (Bld) [Volum e fraction]on 10-11-2022 Hematocrit (Bld) [Volume fraction] 43.9 % 37-47 [facility] Work Phone: INR in Blood by Coagulation assayon 10-11-2022 INR Coag (Bld) [Relative time] 0.9 {INR} [facility] Work Phone: Iron measurement (mass/mass) on 10-11-2022 Iron (Unsp spec) [Mass/Mass] 67 ug/dL 50-170 [facility] Work Phone: Laboratory - Chemistry and C hemistry - challengeon 10-11-2022 ALP [Catalytic activity/Vol] 93 U/L 45-117 [facility] Work Phone: ALT [Catalytic activity/Vol] 11 U/L 13-56 [facility] Work Phone: CO2 [Moles/Vol] 30.0 mmol/L 21.0-32.0 [facility] Work Phone: Globulin (S) [Mass/Vol] 3.8 g/dL 2.2-4.2 [facility] Work Phone: Lipase [Catalytic activity/Vol] 82 U/L 73-393 [facility] Work Phone: Urea nitrogen/Creatinine [Mass ratio] 16.2 mg/mg 10-20 [facility] Work Phone: Laboratory - Coagulationon 1 12-12-2021 aPTT Coag (Bld) [Time] 29.2 s 24.1-36.2 [facility] Work Phone: PT Coag (PPP) [Time] 12.2 s 11.7-14.9 [facility] Work Phone: Laboratory - Hematology and Cell countson 10-11-2022 Erythrocyte distribution width (RBC) [Entitic vol] 48.3 fL 35.1-43.9 [facility] Work Phone: Erythrocyte distribution width (RBC) [Ratio] 13.4 % 11.6-14.6 [facility] Work Phone: Immature granulocytes/100 WBC (Bld) 0.300 % 0.0-0.9 [facility] Work Phone: Comment on above: IG% - Immature Granu locytes (promyelocytes, myelocytes and metamyelocytes) > 1% indicates that a LEFT SHIFT is Present. MCH (RBC) [Entitic mass] 29.6 pg 27.0-32.0 [facility] Work Phone: Nucleated RBC/100 WBC (Bld) [Ratio] 0 % 0-5 [facility] Work Phone: MCHC Auto (RBC) [Mass/Vol]on 10-11-2022 MCHC (RBC) [Mass/Vol] 30.5 g/dL 32-36 [facility] Work Phone: No Panel Informationon 10-11 Estimated GFR (MDRD) Amer 27 mL/min >60 [facility] Work Phone: Comment on above: GFR Calc Estimated GFR (MDRD) Non-Af Amer 22 mL/min >60 [facility] Work Phone: Comment on above: Non- GFR Calc Thyroid Stimulating Hormone (TSH) 1.67 uIU/mL 0.358-3.74 [facility] Work Phone: Vitamin D 25-Hydroxy 30.7 ng/mL [facility] Work Phone: Comment on above: Vitamin D 25(OH) Sta tus Range Deficiency <20 ng/mL (50nmol/L) Insufficiency 20 - 30 ng/mL (50 - 75 nmol/L) Sufficiency 30 - 100 ng/mL (75 - 250 nmol/L) Toxicity >100 ng/mL (>250 nmol/L) Platelets bldon 10-11-2022 Platelets (Bld) [#/Vol] 301 10*3/uL 150-450 [facility] Work Phone: Serum or plasma albumin lesly urement (mass/volume)on 10-11-2022 Albumin [Mass/Vol] 3.1 g/dL 3.2-5.0 [facility] Work Phone: Serum or plasma albumin/glob ulin mass ratioon 10-11-2022 Albumin/Globulin [Mass ratio] 0.8 {ratio} 0.9-2.4 [facility] Work Phone: Serum or plasma calcium lesly urement (mass/volume)on 10-11-2022 Calcium [Mass/Vol] 9.2 mg/dL 8.5-10.1 [facility] Work Phone: Serum or plasma cholesterol in HDL measurement (mass/volume)on 10-11-2022 Cholesterol in HDL [Mass/Vol] 64 mg/dL >40 [facility] Work Phone: Comment on above: The drugs N-Acetylcy steine and Metamizole may falsely depress this assay. Reference Range HDL <40 mg/dL Low HDL Cholesterol HDL >or= 60 mg/dL High HDL Cholesterol Serum or plasma cholesterol in VLDL measurement (mass/volume)on 10-11-2022 Cholesterol in VLDL [Mass/Vol] 40 mg/dL 5-40 [facility] Work Phone: Serum or plasma creatinine m easurement (mass/volume)on 10-11-2022 Creatinine [Mass/Vol] 2.35 mg/dL 0.55-1.02 [facility] Work Phone: Comment on above: The validity of the calculated GFR & GFRAA in patients over 70 years has not been determined. Clinical correlation is essential. Serum or plasma ferritin allyn surement (mass/volume)on 10-11-2022 Ferritin [Mass/Vol] 27 ng/mL 8-252 [facility] Work Phone: Serum or plasma low density lipoprotein (LDL) cholesterol measurement (mass/volume)on 10-11-2022 Cholesterol in LDL [Mass/Vol] 162 mg/dL 0-130 [facility] Work Phone: Serum or plasma urea nitroge n measurement (mass/volume)on 10-11-2022 Urea nitrogen [Mass/Vol] 38 mg/dL 7-18 [facility] Work Phone: Thin prep Papanicolaou smear with manual screeningon 10-11-2022 Thin prep Papanicolaou smear with manual screening 8 U/L 15-37 [facility] Work Phone: Thin prep Papanicolaou smear with manual screening 7 5-15 [facility] Work Phone: Laboratory - Hematology and Cell countson 07-04-2022 HbA1c (Bld) [Mass fraction] 7.2 % [facility] Work Phone: NICOTINE+METABOLITES,Son [id number] 156 ng/mL Normal [facility] Comment on above: Performed By: #### H EPFP #### [facility] [address] [place] [address] COTININE 194 ng/mL Normal [facility] Comment on above: Performed By: #### H EPFP #### [facility] [address] [place] [address] NICOTINE 7 ng/mL Normal [facility] Comment on above: Result Comment: Cons istent with use of a nicotine-containing product within 48 hours of specimen collection. Nicotine is metabolized to cotinine and 8-[id number]-unmznkop. INTERPRETIVE INFORMATION: Nicotine and Metabolites, Serum or [...] developed and its performance characteristics determined by [employer]. It has not been cleared or approved by the US Food and Drug Administration. This test was performed in a CLIA certified laboratory and is intended for clinical purposes. Performed By: [facility] [address] [place] [address] Press Operator [employer]: Fabrizio Cruz MD, PhD Performed By: #### H EPFP #### [facility] [address] [place] [address] DRUG-PROFILE 9,BLOOD WITH RE FLEX TO CONFIRMATIONon 05-31-2022 AMPHETAMINES SCREEN Negative Normal Cutoff 20 [facility] Comment on above: Performed By: #### H EPFP #### [facility] [address] [place] [address] BARBITURATES SCREEN Negative Normal Cutoff 50 [facility] Comment on above: Performed By: #### H EPFP #### [facility] [address] [place] [address] BENZODIAZEPINES SCREEN Negative Normal Cutoff 50 [facility] Comment on above: Performed By: #### H EPFP #### [facility] [address] [place] [address] BUPRENORPHINE SCREEN Negative Normal Cutoff 1 [facility] Comment on above: Performed By: #### H EPFP #### [facility] [address] [place] [address] CANNABINOID SCREEN Negative Normal Cutoff 20 [facility] Comment on above: Performed By: #### H EPFP #### [facility] [address] [place] [address] COCAINE SCREEN Negative Normal Cutoff 20 [facility] Comment on above: Performed By: #### H EPFP #### [facility] [address] [place] [address] DRUG SCREEN COMMENT See Note Normal [facility] Comment on above: Result Comment: INTE [...] developed and its performance characteristics determined by [employer]. It has not been cleared or approved by the US Food and Drug Administration. This test was performed in a CLIA certified laboratory and is intended for clinical purposes. Performed By: [facility] [address] [place] [address] Press Operator [employer]: Fabrizio Cruz MD, PhD Performed By: #### H EPFP #### [facility] [address] [place] [address] METHADONE SCREEN Negative Normal Cutoff 25 [facility] Comment on above: Performed By: #### H EPFP #### [facility] [address] [place] [address] METHAMPHETAMINES SCREEN Negative Normal Cutoff 20 [facility] Comment on above: Performed By: #### H EPFP #### [facility] [address] [place] [address] OPIATE SCREEN Negative Normal Cutoff 20 [facility] Comment on above: Performed By: #### H EPFP #### [facility] [address] [place] [address] OXYCODONE SCREEN Negative Normal Cutoff 20 [facility] Comment on above: Performed By: #### H EPFP #### [facility] [address] [place] [address] PCP SCREEN Negative Normal Cutoff 10 [facility] Comment on above: Performed By: #### H EPFP #### [facility] [address] [place] [address] T-SPOT TBon 05-30-2022 NIL[NEG]CONTROL SPOT COUNT Passed Normal [facility] Comment on above: Performed By: #### H EPFP #### [facility] [address] [place] [address] PANEL A SPOT COUNT 0 Normal [facility] Comment on above: Performed By: #### H EPFP #### [facility] [address] [place] [address] PANEL B SPOT COUNT 2 Normal [facility] Comment on above: Performed By: #### H EPFP #### [facility] [address] [place] [address] POS CONTROL SPOT COUNT Passed Normal [facility] Comment on above: Performed By: #### H EPFP #### [facility] [address] [place] [address] T-SPOT.TB INTERP Negative Normal Normal Value: Negative [facility] Comment on above: [...] test. Performed By: #### H EPFP #### [facility] [address] [place] [address] ABO/RH GROUP TESTon 05-28-20 ABO TYPE O Normal [facility] Comment on above: Performed By: #### H LAS1 #### [facility] [address] [place] [id number] RH TYPE Positive Normal [facility] Comment on above: Performed By: #### H LAS1 #### [facility] [address] [place] [address] AUTOCROSSMATCH, FLOWon 05-28 AUTOCROSSMATCH, FLOW SEE SEPARATE REPORT Normal [facility] Comment on above: Result Comment: Test performed at [facility], 6th Floor [address] [place] [address] Performed By: #### U SWETHA #### [facility] [address] [facility] [place] [id number] AUTOCROSSMATCH, FLOW Canceled Normal [facility] Comment on above: Order Comment: TEST AUTOCROSSMATCH, FLOW WAS CANCELLED, 05/28/2022 13:06 Result Comment: Test performed at [facility], 6th Floor [address] [place] [address] Performed By: #### H EPFP #### [facility] [address] [place] [address] Blood Typing (ABO + Rho D)on 05-28-2022 ABO group Nom (Bld) O MG-[facility]- [facility] [employer] Work Phone: Rh immune globulin screen (Bld) [Interp] Positive MG-Transpl ant- [facility] [employer] 1800 Work Phone: Blood Urea Nitrogen, Serumon 05-28-2022 Urea nitrogen [Mass/Vol] 47 mg/dL above high threshold 6 - 23 [facility]- [facility] [employer] Work Phone: C PEPTIDEon 05-28-2022 C PEPTIDE 0.1 ng/mL Low 0.7 - 3.9 [facility] Comment on above: Performed By: #### U SWETHA #### [facility] [address] [place] [address] C Peptide, Serumon C peptide [Mass/Vol] 0.1 ng/mL below low threshold 0.7 - 3.9 [facility]- [facility] [employer] Work Phone: CBCon 05-28-2022 Erythrocyte distribution width (RBC) [Ratio] 13.5 % Normal 11.5 - 14.5 [facility] Comment on above: Performed By: #### U SWETHA #### [facility] [address] [place] [address] Hematocrit (Bld) [Volume fraction] 37.0 % Normal 36.0 - 46.0 [facility] Comment on above: Performed By: #### U SWETHA #### [facility] [address] [place] [address] Hemoglobin (Bld) [Mass/Vol] 11.3 g/dL Low 12.0 - 16.0 [facility] Comment on above: Performed By: #### U SWETHA #### [facility] [address] [place] [address] MCHC (RBC) [Mass/Vol] 30.5 g/dL Low 32.0 - 36.0 [facility] Comment on above: Performed By: #### U SWETHA #### [facility] [address] [place] [address] MCV (RBC) [Entitic vol] 101 fL High 80 - 100 [facility] Comment on above: Performed By: #### U SWETHA #### [facility] [address] [place] [address] NUCLEATED RBC 0.0 /100 WBC Normal 0.0-0.0 [facility] Comment on above: Performed By: #### U SWETHA #### [facility] [address] [place] [address] Platelets (Bld) [#/Vol] 240 10*3/uL Normal 150 - 450 [facility] Comment on above: Performed By: #### U SWETHA #### [facility] [address] [place] [address] RBC 3.66 x10E12/L Low 4.00 - 5.20 [facility] Comment on above: Performed By: #### U WSETHA #### [facility] [address] [place] [address] WBC (Bld) [#/Vol] 9.3 10*3/uL Normal 4.4 - 11.3 [facility] Comment on above: Performed By: #### U SWETHA #### [facility] [address] [place] [address] CMV IGGon 05-28-2022 CMV IGG AB Reactive Abnormal NONREACTIVE [facility] Comment on above: Performed By: #### H LAS1 #### [facility] [address] [place] [address] CMV IgGon 05-28-2022 CMV IgG Reactive Abnormal See Below [facility]- [facility] [employer] [address] Work Phone: Comment on above: SOURCE: Reference Ra nge: NONREACTIVE CREATININEon 05-28-2022 Creatinine [Mass/Vol] 2.19 mg/dL High 0.50 - 1.05 [facility] Comment on above: Performed By: #### H LAS1 #### [facility] [address] [place] [address] GFR/1.73 sq M.predicted among non-blacks MDRD (S/P/Bld) [Vol rate/Area] 25 mL/min/{1.73_m2} Abnormal >90 [facility] Comment on above: Result Comment: CALC ULATIONS OF ESTIMATED GFR ARE PERFORMED USING THE 2020 CKD-EPI STUDY REFIT EQUATION WITHOUT THE RACE VARIABLE FOR THE IDMS-TRACEABLE CREATININE METHODS. https://jasn.asnjournals.org/content/early/ASN.87503 02109 Performed By: #### H LAS1 #### [facility] [address] [place] [address] Creatinine, Serumon 05-28-20 Creatinine [Mass/Vol] 2.19 mg/dL above high threshold See Below [facility]- [facility] [employer] Work Phone: Comment on above: Reference Range: 0.5 0 - 1.05 Creatinine, Serum 25 {mL/min/1.73m2} Abnormal >90 [facility]- [facility] [employer] Work Phone: Comment on above: CALCULATIONS OF EMILIO MATED GFR ARE PERFORMED USING THE 2020 CKD-EPI STUDY REFIT EQUATION WITHOUT THE RACE VARIABLE FOR THE IDMS-TRACEABLE CREATININE METHODS.https://UrGiftsn.asnjournals.org/content/early/A SN.1407755415 EBV PANELon 05-28-2022 VCA IGM ANTIBODY Negative Normal NEGATIVE [facility] Comment on above: Performed By: #### E BVP1 #### [facility] [address] [place] [address] EBV EA-D IGG ANTIBODY Negative Normal NEGATIVE [facility] Comment on above: Performed By: #### E BVP1 #### [facility] [address] [place] [address] EBV INTERPRETATION SEE BELOW Normal [facility] Comment on above: Result Comment: . EB V INTERPRETATION CHART . VCA-IGG VCA-IGM NA-IGG EA-IGG . PRIMARY ACUTE +/- +/- - +/- LATE ACUTE + +/- +/- +/- RECOVERING + - - + PREVIOUS INFECTION + - +/- - Performed By: #### E BVP1 #### [facility] [address] [place] [address] EBV NA-1 IGG ANTIBODY Positive Abnormal NEGATIVE [facility] Comment on above: Performed By: #### E BVP1 #### [facility] [address] [place] [address] VCA IGG ANTIBODY Positive Abnormal NEGATIVE [facility] Comment on above: Performed By: #### E BVP1 #### [facility] [address] [place] [address] HEMOGLOBIN A1Con 05-28-2022 Glucose [Mass/Vol] 194 mg/dL Normal [facility] Comment on above: Performed By: #### H EPFP #### [facility] [address] [place] [address] HbA1c (Bld) [Mass fraction] 8.4 % Abnormal [facility] Comment on above: Result Comment: Diag nosis of Diabetes-Adults Non-Diabetic: < or = 5.6% Increased risk for developing diabetes: 5.7-6.4% Diagnostic of diabetes: > or = 6.5% . Monitoring of Diabetes Age (y) Therapeutic Goal (%) Adults: >18 <7.0 Pediatrics: 13-18 <7.5 7-12 <8.0 0- 6 7.5-8.5 [place] [employer]. Diabetes Care 33(S1), Nov 2009. Performed By: #### H EPFP #### [facility] [address] [place] [address] HEPATIC FUNCTION PANELon Albumin [Mass/Vol] 3.5 g/dL Normal 3.4 - 5.0 [facility] Comment on above: Performed By: #### H EPFP #### [facility] [address] [place] [address] ALP [Catalytic activity/Vol] 70 U/L Normal 33 - 136 [facility] Comment on above: Performed By: #### H EPFP #### [facility] [address] [place] [address] ALT [Catalytic activity/Vol] 12 U/L Normal 7 - 45 [facility] Comment on above: Result Comment: Lauren ents treated with Sulfasalazine may generate falsely decreased results for ALT. Performed By: #### H EPFP #### [facility] [address] [place] [address] AST [Catalytic activity/Vol] 15 U/L Normal 9 - 39 [facility] Comment on above: Performed By: #### H EPFP #### [facility] [address] [place] Bilirubin [Mass/Vol] 0.3 mg/dL Normal 0.0 - 1.2 [facility] Comment on above: Performed By: #### H EPFP #### [facility] [address] [place], [place] Bilirubin.indirect [Mass/Vol] 0.1 mg/dL Normal 0.0 - 0.3 [facility] Comment on above: Performed By: #### H EPFP #### [facility] [address] [place] [address] Protein [Mass/Vol] 6.0 g/dL Low 6.4 - 8.2 [facility] Comment on above: Performed By: #### H EPFP #### [facility] [address] [place] [address] HEPATITIS B CORE AB-TOTALon 05-28-2022 HEP. B CORE AB-TOTAL Non-Reactive Normal NONREACTIVE U [facility] Comment on above: Result Comment: Resu lts from patients taking biotin supplements or receiving high-dose biotin therapy should be interpreted with caution due to possible interference with this test. Providers may contact their local laboratory for further information. Performed By: #### H BCRT #### [facility] [address] [place] [address] Lab Specimen Source Normal [facility] Comment on above: Performed By: #### H BCRT #### [facility] [address] [place] Performed By: #### S YPHR #### [facility] [address] [place], [place] [id number] Performed By: #### H LAS1 #### [facility] [address] [place], [place] Performed By: #### U SWETHA #### [facility] [address] [place], [place] HEPATITIS B SURF ABon 2021 HEP B SURF AB <3.1 Normal <10 [facility] Comment on above: Result Comment: INTE RPRETIVE CRITERIA: <10 mIU/mL....NONREACTIVE >=10 mIU/mL...REACTIVE . Biotin interference may cause falsely decreased results. Patients taking a Biotin dose of up to 5 mg/day should refrain from taking Biotin for 24 hours before sample collection. Providers may contact their local laboratory for further information. Performed By: #### H LAS1 #### [facility] [address] [place] [id number] HEPATITIS B SURFACE AGon HEP.B SURFACE AG Non-Reactive Normal NONREACTIVE [facility] Comment on above: Result Comment: Biot in interference may cause falsely decreased results. Patients taking a Biotin dose of up to 5 mg/day should refrain from taking Biotin for 24 hours before sample collection. Providers may contact their local laboratory for further information. Performed By: #### U SWETHA #### [facility] [address] [place], [place] HEPATITIS C ABon 05-28-2022 HEPATITIS C AB Non-Reactive Normal NONREACTIVE [facility] Comment on above: Result Comment: Resu lts from patients taking biotin supplements or receiving high-dose biotin therapy should be interpreted with caution due to possible interference with this test. Providers may contact their local laboratory for further information. Performed By: #### H LAS1 #### [facility] [address] [place], [place] HIV 1/2 ANTIGEN/ANTIBODY SCR EEN WITH REFLEX TO CONFIRMATIONon 05-28-2022 HIV 1/2 AG/AB SCREEN Non-Reactive Normal NONREACTIVE [facility] Comment on above: Result Comment: [...] load). Performed By: #### H LAS1 #### [facility] [address] [place] [address] HIV 1+2 Ab Qn (S) Non-Reactive See Below MG-Tr [facility]- [facility] [employer] Work Phone: Comment on above: [...] I AB SCREEN,FC SEE COMMENT Normal [facility] Comment on above: Result Comment: HLA CLASS I AB SCREEN,FLOW CYTOMETRY SEE SEPARATE REPORT. Test performed at [facility], 6th Floor [address] [place] [address] Performed By: #### H LAS1 #### [facility] [address] [place] [id number] HLA CLASS I AB SCREEN,FC Canceled Normal [facility] Comment on above: Order Comment: TEST HLA CLASS I AB SCREEN,FC WAS CANCELLED, 05/28/2022 13:06 Performed By: #### H LAS1 #### [facility] [address] [place] [id number] HLA CLASS II AB SCREEN,FCon 05-28-2022 HLA CLASS II AB SCREEN,FC SEE COMMENT Normal [facility] Comment on above: Result Comment: HLA CLASS II AB SCREEN,FLOW CYTOMETRY SEE SEPARATE REPORT. Test performed at [facility], 6th Floor [address] [place] [address] Performed By: #### U SWETHA #### [facility] [address] [place] [id number] HLA CLASS II AB SCREEN,FC Canceled Normal [facility] Comment on above: Order Comment: TEST HLA CLASS II AB SCREEN,FC WAS CANCELLED, 05/28/2022 13:06 Performed By: #### H LAS1 #### [facility] [address] [place] [id number] HLA-A,B,C LRon 05-28-2022 HLA-A LOCUS LR TYPE SEE COMMENT Normal [facility] Comment on above: Result Comment: HLA- A LOCUS, LOW RESOLUTION TYPE SEE SEPARATE REPORT. Performed By: #### H EPFP #### [facility] [address] [place] [address] HLA-B LOCUS LR TYPE SEE COMMENT Normal [facility] Comment on above: Result Comment: HLA- B LOCUS, LOW RESOLUTION TYPE SEE SEPARATE REPORT. Performed By: #### H EPFP #### [facility] [address] [place] [address] HLA-C LOCUS LR TYPE SEE COMMENT Normal [facility] Comment on above: Result Comment: HLA- C LOCUS, LOW RESOLUTION TYPE SEE SEPARATE REPORT. Test performed at [facility], 6th Floor [address] [place] [address] Performed By: #### H EPFP #### [facility] [address] [place] [address] HLA-A LOCUS LR TYPE Canceled Normal [facility] Comment on above: Order Comment: TEST HLA-A,B,C LR WAS CANCELLED, 05/28/2022 13:06 Performed By: #### H EPFP #### [facility] [address] [place] [id number] HLA-B LOCUS LR TYPE Canceled Normal [facility] Comment on above: Order Comment: TEST HLA-A,B,C LR WAS CANCELLED, 05/28/2022 13:06 Performed By: #### H EPFP #### [facility] [address] [place] [address] HLA-C LOCUS LR TYPE Canceled Normal [facility] Comment on above: Order Comment: TEST HLA-A,B,C LR WAS CANCELLED, 05/28/2022 13:06 Performed By: #### H EPFP #### [facility] [address] [place], [place] HLA-DPB1 HR TYPINGon 022 HLA-DPB1 HR TYPING SEE COMMENT Normal [facility] Comment on above: Result Comment: HLA- DPB1 HIGH RESOLUTION TYPING SEE SEPARATE REPORT. Test performed at [facility], 6th Floor [address] [place] [address] Performed By: #### D PBHT #### [facility] [address] [facility] [place] HLA-DPB1 HR TYPING Canceled Normal [facility] Comment on above: Order Comment: TEST HLA-DPB1 HR TYPING WAS CANCELLED, 05/28/2022 13:06 Performed By: #### D PBHT #### [facility] [address] [place], [place] HLA-DQB1 HR TYPINGon 022 HLA-DQB1 HR TYPING SEE COMMENT Normal [facility] Comment on above: Result Comment: HLA- DQB1 HIGH RESOLUTION TYPING SEE SEPARATE REPORT. Test performed at [facility], 6th Floor [address] [place] [id number] Performed By: #### D QBHT #### [facility] [address] [place] [id number] HLA-DQB1 HR TYPING Canceled Normal [facility] Comment on above: Order Comment: TEST HLA-DQB1 HR TYPING WAS CANCELLED, 05/28/2022 13:06 Performed By: #### H EPFP #### [facility] [address] [place] [address] HLA-DRB1/3/4/5 AND DQB1 LR T YPINGon 05-28-2022 HLA-DRB1/3/4/5 & DQB1 LR TYPING SEE COMMENT Normal [facility] Comment on above: Result Comment: HLA- DRB1/3/4/5 AND DQB1 LOW RESOLUTION TYPING SEE SEPARATE REPORT. Test performed at [facility], 6[facility] [address] [place] [address] Performed By: #### H EPFP #### [facility] [address] [place] [address] HLA-DRB1/3/4/5 & DQB1 LR TYPING Canceled Normal [facility] Comment on above: Order Comment: TEST HLA-DRB1/3/4/5 AND DQB1 LR TYPING WAS CANCELLED, 05/28/2022 13:06 Performed By: #### H EPFP #### [facility] [address] [facility] [place] [address] Hemoglobin A1Con 05-28-2022 Glucose [Mass/Vol] 194 mg/dL [facility] Work Phone: HbA1c (Bld) [Mass fraction] 8.4 % Abnormal [facility] Work Phone: Comment on above: Diagnosis of Diabete s-Adults Non-Diabetic: < or = 5.6% Increased risk for developing diabetes: 5.7-6.4% Diagnostic of diabetes: > or = 6.5%. Monitoring of Diabetes Age (y) Therapeutic Goal (%) Adults: >18 <7.0 Pediatrics: 13-18 <7.5 7-12 <8.0 0- 6 7.5-8.5 [place] [employer]. Diabetes Care 33(S1), Nov 2009. Hepatic Function Panelon Albumin BCP dye [Mass/Vol] 3.5 g/dL 3.4 - 5.0 [facility]-Trans[facility]- [facility] [employer] [address] Work Phone: ALP [Catalytic activity/Vol] 70 U/L 33 - 136 [facility]-Trans[facility]- [facility] [employer] [address] Work Phone: ALT With P-5'-P [Catalytic activity/Vol] 12 U/L 7 - 45 [facility]- [facility] [employer] [address] Work Phone: Comment on above: Patients treated wit h Sulfasalazine may generate falsely decreased results for ALT. AST With P-5'-P [Catalytic activity/Vol] 15 U/L 9 - 39 [facility]- [facility] [place] [facility] Work Phone: Bilirubin [Mass/Vol] 0.3 mg/dL 0.0 - 1.2 MG-T ransplant- [facility] [place] [facility] Work Phone: Bilirubin.direct [Mass/Vol] 0.1 mg/dL 0.0 - 0.3 MG-Transplant- [facility] 1800 Work Phone: Protein [Mass/Vol] 6.0 g/dL below low threshold 6.4 - 8.2 MG-Transplant- [facility] [place] Work Phone: Hepatitis B Core Antibody, T otalon 05-28-2022 Hepatitis B Core Antibody, Total Non-Reactive See Below MG-Transplant- [facility] [place] Work Phone: Comment on above: SOURCE: Reference [...] surface Ag IA Ql <3.1 <10 [facility] [place] Work Phone: Comment on above: SOURCE: INTERPRETIVE CRITERIA:<10 mIU/mL....NONREACTIVE >=10 mIU/mL...REACTIVE . Biotin interference may cause falsely decreased results. Patients taking a Biotin dose of up to 5 mg/day should refrain from taking Biotin for 24 hours before sample collection. Providers may contact their local laboratory for further information. Laboratory - Drug toxicology on 05-28-2022 Amphetamines Screen Ql Negative Cutoff 20 [facility] Work Phone: Barbiturates Screen Ql Negative Cutoff 50 [facility] Work Phone: Benzodiazepines Screen Ql Negative Cutoff 50 MG-Transplant- [facility] Work Phone: Cannabinoids Screen Ql Negative Cutoff 20 MG -Transplant- [facility] Work Phone: Cocaine Screen Ql Negative Cutoff 20 MG-Mora splant- [facility] Work Phone: Methadone Screen Ql Negative Cutoff 25 MG-Tr ansplant- [facility] Work Phone: Methamphetamine Ql Negative Cutoff 20 MG-Tra nsplant- [facility] Work Phone: Opiates Screen Ql Negative Cutoff 20 MG-Mora splant- [facility] Work Phone: oxyCODONE Ql Negative Cutoff 20 MG-Transplan t- [facility] Work Phone: Phencyclidine Screen Ql Negative Cutoff 10 MG-Transplant- [facility] Work Phone: Laboratory - HLA antigenson 05-28-2022 HLA-A locus Nom (Bld/Tiss) SEE COMMENT [facility] Work Phone: Comment on above: HLA-A LOCUS, LOW RES OLUTION TYPE SEE SEPARATE REPORT. HLA-B locus Nom (Bld/Tiss) SEE COMMENT [facility] [employer] 1800 Work Phone: Comment on above: HLA-B LOCUS, LOW RES OLUTION TYPE SEE SEPARATE REPORT. HLA-C locus Nom (Bld/Tiss) SEE COMMENT [facility] [place] [address] Work Phone: Comment on above: HLA-C LOCUS, LOW RES OLUTION TYPE SEE SEPARATE REPORT.Test performed at [facility], [address] [place] [address] HLA-DP2 Ql (Bld/Tiss) SEE COMMENT [facility] [place] [address] Work Phone: Comment on above: HLA-DPB1 HIGH RESOLU TION TYPING SEE SEPARATE REPORT.Test performed at [facility], 6th Floor [address] [place] [address] HLA-DQB1 High resolution Nom (Bld/Tiss) SEE COMMENT [facility]-Transplant- [facility] Work Phone: Comment on above: HLA-DQB1 HIGH RESOLU TION TYPING SEE SEPARATE REPORT.Test performed at [facility], 6th Floor [address] [place] [address] HLA-DR+DQ Nom (Bld/Tiss) SEE COMMENT MG-Transplant- [facility] [place] [facility]99 Work Phone: Comment on above: HLA-DRB1/3/4/5 & DQB 1 LOW RESOLUTION TYPING SEE SEPARATE REPORT.Test performed at [facility], 6th Floor [address] [place] [address] HLA-A locus Nom (Bld/Tiss) Canceled [facility]-Transplant- [facility]99 Work Phone: HLA-B locus Nom (Bld/Tiss) Canceled [facility]-Transplant- [facility] Work Phone: HLA-C locus Nom (Bld/Tiss) Canceled MG-Transplant- [facility]99 Work Phone: HLA-DP2 Ql (Bld/Tiss) Canceled MG- Transplant- [facility]99 Work Phone: HLA-DQB1 High resolution Nom (Bld/Tiss) Canceled MG-Transplant- [facility]99 Work Phone: HLA-DR+DQ Nom (Bld/Tiss) Canceled MG-Transplant- [facility]99 Work Phone: Laboratory - Hematology and Cell countson 05-28-2022 Erythrocyte distribution width (RBC) [Ratio] 13.5 % See Below MG-Transplant- [facility] Work Phone: Comment on above: Reference [...] below low threshold See Below MG-Transplant- [facility] Work Phone: Comment on above: Reference Range: 32. 0 - 36.0 MCV (RBC) [Entitic vol] 101 fL above high threshold 80 - 100 [facility]-Transplant- [facility] Work Phone: Platelets (Bld) [#/Vol] 240 10*3/uL 150 - 450 [facility]-Transplant- [facility] Work Phone: RBC (Bld) [#/Vol] 3.66 {x10E12/L} below low threshold See Below MG-Transplant- [facility] Work Phone: Comment on above: Reference Range: 4.0 0 - 5.20 WBC (Bld) [#/Vol] 9.3 10*3/uL 4.4 - 11.3 MG-Tra nsplant- [facility] Work Phone: Laboratory - Microbiology an d Antimicrobial susceptibilityon 05-28-2022 EBV capsid IgG IA Qn (S) Positive Abnormal NEGATIVE MG-Transplant- [facility] Work Phone: EBV capsid IgM IA Qn (S) Negative NEGATIVE MG-Transplant- [facility] Work Phone: EBV early IgM IA Qn (S) Negative NEGATIVE MG-Transplant- [facility] Work Phone: EBV nuclear IgG IA Qn (S) Positive Abnormal NEGATIVE [facility]-Transplant- [facility] Work Phone: Nicotine+Metabolites, Serumo n 05-28-2022 Cotinine [Mass/Vol] 194 ng/mL [facility] Work Phone: Nicotine [Mass/Vol] 7 ng/mL [facility] Work Phone: Comment on above: Consistent with use of a nicotine-containing product hours of specimen collection. Nicotine is metabolizedto cotinine and 5-RT-iyfytknq.INTERPRETIVE INFORMATION: Nicotine and Metabolites, Serum or Plasma, [...] developed and its performance characteristics determined by [employer]. It has not been cleared or approved by the US Food and Drug Administration. This test was performed in a CLIA certified laboratory and is intended for clinical purposes.Performed By: [facility] [place] [id number] Director: Fabrizio Cruz MD, PhD Bloyx-5-[id number] e [Mass/Vol] 156 ng/mL [facility] Work Phone: No Panel Informationon 05-28 SEE COMMENT [facility]plant - [facility] [place] [address] Work Phone: Comment on above: HLA CLASS I AB SCREE N,FLOW CYTOMETRY SEE SEPARATE REPORT.Test performed at [facility], 6th Floor [address] [place] [address] HLA CLASS II AB SCRE EN,FLOW CYTOMETRY SEE SEPARATE REPORT.Test performed at [facility], 6th Floor [address] [place] [address] SEE SEPARATE REPORT MG-Tr ansplant- [facility] [employer] [address] Work Phone: Comment on above: Test performed at [facility], 6th Floor [id number] [place] [address] Annotation comment [Interpretation] Narrative See Note MG-Transplant- [facility] Work Phone: Comment on above: INTERPRETIVE INFORMA [...] developed and its performance characteristics determined by [employer]. It has not been cleared or approved by the US Food and Drug Administration. This test was performed in a CLIA certified laboratory and is intended for clinical purposes.Performed By: [facility] [place] [address] [id number] Director: Fabrizio Cruz MD, PhD 0.0 {/100_WBC} 0.0-0.0 MG-Transpl ant- [facility] [employer] [facility] Work Phone: SEE BELOW MG-Transplant- [facility] [employer] [facility] Work Phone: Comment on above: . EBV INTERPRETATION CHART. VCA-IGG VCA-IGM NA-IGG EA-IGG. PRIMARY ACUTE +/- +/- - +/-LATE ACUTE + +/- +/- +/-RECOVERING + - - +PREVIOUS INFECTION + - +/- - Canceled MG-Transplant- [facility] [employer] [facility] Work Phone: Comment on above: Test performed at [facility], 6th Floor [address] [place] [address] Office VIsit (Pre-Transplant Surgery)on 05-28-2022 Follow-up visit Diagnosis/Problems Assessed Pre-transplant evaluation for kidney transplant (V72.83) (Z01.818) History of end stage renal disease (V13.09) (Z87.448) History of diabetes mellitus (V12.29) (Z86.39) History of chronic obstructive lung disease (V12.69) (Z87.09) History of coronary artery disease (V12.59) (Z86.79) History of Appendectomy History of Hysterectomy Current smoker (305.1) (F17.200) Has access to [employer] and [employer] insurance coverage Living Situation: Supportive and [...] compliance with treatment. Primary Care Provider: Dr. Juliet Lujan. Referral: Dr. Christy Fontenot (tel: [phone] fax: [phone]). I am seeing SANDY DENG at the referring provider's request for surgical suitability for renal transplant candidate listing at [facility] [place]. History of Present Illness Comments: Ms. SANDY [...] [Mass/Vol] 5.3 mg/dL High 2.5 - 4.9 [facility] Comment on above: Result Comment: The performance characteristics of phosphorus testing in heparinized plasma have been validated by the individual laboratory site where testing is performed. Testing on heparinized plasma is not approved by the FDA; however, such approval is not necessary. Performed By: #### H LAS1 #### [facility] [address] [place] [address] Phosphorus, Serumon 05-28-20 Phosphate [Mass/Vol] 5.3 mg/dL above high threshold 2.5 - 4.9 MG-Transplant- [facility] [employer] [address] Work Phone: Comment on above: The performance armond acteristics of phosphorus testing in heparinized plasma have been validated by the individual laboratory site where testing is performed. Testing on heparinized plasma is not approved by the FDA; however, such approval is not necessary. SYPHILIS SCREENING WITH REFL EXon 05-28-2022 SYPHILIS TOTAL AB Non-Reactive Normal NONREACTIVE [facility] Comment on above: Result Comment: No s ignificant level of Treponema pallidum antibody detected. Repeat testing in 2 to 4 weeks may be considered if early infection or incubating syphilis infection is suspected. Performed By: #### S YPHR #### [facility] [address] [place] [id number] T. pallidum IgG+IgM IA Ql (S) Non-Reactive See Below [facility]-Transplant- [facility] [employer] [address] Work Phone: Comment on above: SOURCE: Reference Ra nge: NONREACTIVENo significant level of Treponema pallidum antibody detected. Repeat testing in 2 to 4 weeks may be considered if early infection or incubating syphilis infection is suspected. T-SPOT. TBon 05-28-2022 T-SPOT. TB Passed MG-Transplant- [facility] Work Phone: T-SPOT. TB 2 1 MG-Transplant- [facility] Work Phone: T-SPOT. TB 0 1 MG-Transplant- [facility] Work Phone: Tobacco Screening.on 022 Fall risk assessment a) No falls within the last year MG-Transplant- [facility] [employer] [address] Work Phone: Tobacco use status CPHS a) Yes MG-Transplant- [facility] [employer] [address] Work Phone: Tobacco Screening. Yes MG-Tra nsplant- [facility] [employer] Work Phone: UA MICROSCOPICon 05-28-2022 Mucus Ql (Urine sed) 1+ /LPF Normal [facility] Comment on above: Performed By: #### U SWETHA #### [facility] [address] [place] [address] RBC 2 /HPF Normal 0-5 [facility] Comment on above: Performed By: #### U WSETHA #### [facility] [address] [place] [address] SQUAMOUS EPITH. CELLS 3 /HPF Normal [facility] Comment on above: Performed By: #### U SWETHA #### [facility] [address] [place] [address] WBC 12 /HPF Abnormal 0-5 [facility] Comment on above: Performed By: #### U SWETHA #### [facility] [address] [place] [address] UREA NITROGENon 05-28-2022 Urea nitrogen [Mass/Vol] 47 mg/dL High 6 - 23 [facility] Comment on above: Performed By: #### U SWETHA #### [facility] [address] [place] [address] URINALYSISon 05-28-2022 Appearance (U) CLEAR Normal CLEAR [facility] Comment on above: Performed By: #### H LAS1 #### [facility] [address] [place] [address] Bilirubin Ql (U) Negative Normal NEGATIVE [facility] Comment on above: Performed By: #### H LAS1 #### [facility] [address] [place] [address] Color (U) YELLOW Normal STRAW,YELLOW [facility] Comment on above: Performed By: #### H LAS1 #### [facility] [address] [place] [address] Glucose Ql (U) Negative Normal NEGATIVE [facility] Comment on above: Performed By: #### H LAS1 #### [facility] [address] [place] [address] Hemoglobin Ql (U) Negative Normal NEGATIVE [facility] Comment on above: Performed By: #### H LAS1 #### [facility] [address] [place] [address] Ketones Ql (U) Negative Normal NEGATIVE [facility] Comment on above: Performed By: #### H LAS1 #### [facility] [address] [place] [address] Leukocyte esterase Test strip Ql (U) SMALL (1+) Abnormal NEGATIVE [facility] Comment on above: Performed By: #### H LAS1 #### [facility] [address] [place] [address] Nitrite Ql (U) Negative Normal NEGATIVE [facility] Comment on above: Performed By: #### H LAS1 #### [facility] [address] [place] [address] pH (U) 5.0 [pH] Normal 5.0 - 8.0 [facility] Comment on above: Performed By: #### H LAS1 #### [facility] [address] [place] [address] Protein Ql (U) 100 (2+) Abnormal NEGATIVE [facility] Comment on above: Performed By: #### H LAS1 #### [facility] [address] [place] [address] Specific gravity (U) [Rel density] 1.016 Normal 1.005 - 1.035 [facility] Comment on above: Performed By: #### H LAS1 #### [facility] [address] [place] [address] Urobilinogen (U) [Mass/Vol] mg/dL Normal 0.0 - 1.9 [facility] Comment on above: Performed By: #### H LAS1 #### [facility] [address] [place] [address] Urinalysison 05-28-2022 Color (U) YELLOW See Below MG-Transplant- [facility] [employer] Work Phone: Comment on above: Reference Range: STR AW,YELLOW Glucose Ql (U) Negative NEGATIVE MG-Transpl ant- [facility] [address] Work Phone: Ketones Ql (U) Negative NEGATIVE MG-Transpl ant- [facility] [employer] Work Phone: Leukocyte esterase Test strip Ql (U) SMALL (1+) Abnormal NEGATIVE MG-Transplant- [facility] Work Phone: pH (U) 5.0 [pH] 5.0 - 8.0 MG-Transplant- [facility] [employer] Work Phone: Protein (U) [Mass/Vol] 100 (2+) Abnormal NEGATIVE MG -Transplant- [facility] [address] Work Phone: RBC (U) [#/Vol] Negative NEGATIVE MG-Transp lant- [facility] Work Phone: Specific gravity (U) [Rel density] 1.016 1 See Below MG-Transplant- [facility] Work Phone: Comment on above: Reference Range: 1.0 05 - 1.035 Urinalysis Negative NEGATIVE MG-Transplant- [facility] [address] Work Phone: Comment on above: Reference [...] Urinalysis <2.0 0.0 - 1.9 MG-Transplant- [facility] Work Phone: Urinalysis CLEAR CLEAR MG-Transplant- [facility] Work Phone: Urinalysis, Microscopicon Urinalysis, Microscopic 1+ MG-Transplant- [facility] [employer] Work Phone: Urinalysis, Microscopic 3 {/HPF} MG-Transplant- [facility] [employer] [address] Work Phone: Urinalysis, Microscopic 2 {/HPF} 0-5 MG-Transplant- [facility] [employer] [address] Work Phone: Urinalysis, Microscopic 12 {/HPF} Abnormal 0-5 MG-Transplant- [facility] [employer] [address] Work Phone: VARICELLA ZOSTER IGG ABon VARICELLA ZOSTER IGG AB Positive Normal NEGATIVE [facility] Comment on above: [...] assays. Performed By: #### H LAS1 #### [facility] [address] [place] [address] Varicella Zoster IgG Antibod yon 05-28-2022 VZV IgG IA Ql (S) Positive NEGATIVE MG-Mora splant- [facility] [address] Work Phone: Comment on [...] percentageon 2021 Basophil percentage 3.2 mg/dL 2.5-4.9 [facility] Work Phone: Chloride [Moles/Vol] 104 mmol/L 98-107 [facility] Work Phone: Glucose [Mass/Vol] 92 mg/dL 74-106 [facility] Work Phone: Potassium [Moles/Vol] 4.3 mmol/L 3.5-5.1 [facility] Work Phone: Sodium [Moles/Vol] 137 mmol/L 136-145 [facility] Work Phone: WBC (Bld) [#/Vol] 9.6 10*3/uL 4.4-11.0 [facility] Work Phone: Blood erythrocytes count (nu mber/volume)on 05-02-2022 RBC (Bld) [#/Vol] 4.06 10*6/uL 4.2-5.4 [facility] Work Phone: Blood hemoglobin measurement (mass/volume)on 05-02-2022 Hemoglobin (Bld) [Mass/Vol] 12.1 g/dL 12.0-15.0 [facility] Work Phone: Blood platelet mean volumeon 05-02-2022 Platelet mean volume (Bld) [Entitic vol] 9.5 fL 6.2-12.0 [facility] Work Phone: Determination of erythrocyte mean corpuscular volume (MCV)on 05-02-2022 MCV (RBC) [Entitic vol] 95.3 fL 81-99 [facility] Work Phone: Hematocrit Auto (Bld) [Volum e fraction]on 05-02-2022 Hematocrit (Bld) [Volume fraction] 38.7 % 37-47 [facility] Work Phone: Laboratory - Chemistry and C hemistry - challengeon 05-02-2022 CO2 [Moles/Vol] 29.0 mmol/L 21.0-32.0 [facility] Work Phone: Urea nitrogen/Creatinine [Mass ratio] 21.2 mg/mg 10-20 [facility] Work Phone: Laboratory - Hematology and Cell countson 05-02-2022 Erythrocyte distribution width (RBC) [Entitic vol] 46.5 fL 35.1-43.9 [facility] Work Phone: Erythrocyte distribution width (RBC) [Ratio] 13.2 % 11.6-14.6 [facility] Work Phone: MCH (RBC) [Entitic mass] 29.8 pg 27.0-32.0 [facility] Work Phone: MCHC Auto (RBC) [Mass/Vol]on 05-02-2022 MCHC (RBC) [Mass/Vol] 31.3 g/dL 32-36 [facility] Work Phone: No Panel Informationon 05-02 Estimated GFR (MDRD) Amer 35 mL/min >60 [facility] Work Phone: Comment on above: GFR Calc Estimated GFR (MDRD) Non-Af Amer 29 mL/min >60 [facility] Work Phone: Comment on above: Non- GFR Calc Parathyroid Hormone (Intact) 40.1 pg/mL 18.4-80.1 [facility] Work Phone: Platelets bldon 05-02-2022 Platelets (Bld) [#/Vol] 268 10*3/uL 150-450 [facility] Work Phone: Serum or plasma albumin lesly urement (mass/volume)on 05-02-2022 Albumin [Mass/Vol] 3.4 g/dL 3.2-5.0 [facility] Work Phone: Serum or plasma calcium lesly urement (mass/volume)on 05-02-2022 Calcium [Mass/Vol] 9.7 mg/dL 8.5-10.1 [facility] Work Phone: Serum or plasma creatinine m easurement (mass/volume)on 05-02-2022 Creatinine [Mass/Vol] 1.89 mg/dL 0.55-1.02 [facility]: Comment on above: The validity of the calculated GFR & GFRAA in patients over 70 years has not been determined. Clinical correlation is essential. Serum or plasma urea nitroge n measurement (mass/volume)on 05-02-2022 Urea nitrogen [Mass/Vol] 40 mg/dL 7-18 [facility] Work Phone: Urine creatinine measurement (mass/volume)on 05-02-2022 Creatinine (U) [Mass/Vol] 72.60 mg/dL NO RANGE EST. [facility] Work Phone: Urine protein measurement (m ass/volume)on 05-02-2022 Protein (U) [Mass/Vol] 114.6 mg/dL 0.0-11.8 [facility] Work Phone: Urine protein/creatinine mas s ratioon 05-02-2022 Protein/Creatinine (U) [Mass ratio] 1579 mg/g CRE 0-200 [facility] Work Phone: Absolute lymphocyte counton 02-08-2022 Lymphocytes Auto (Unsp spec) [#/Vol] 1.86 10*3/uL 0.83-4.51 [facility] Work Phone: Basophil percentageon 2021 Amylase [Catalytic activity/Vol] 57 U/L 25-115 [facility] Work Phone: Basophils/100 WBC (Bld) 0.7 % 0-1 [facility] Work Phone: Bilirubin [Mass/Vol] 0.30 mg/dL 0.20-1.00 [facility] Work Phone: Comment on above: For patients on eltr ombopag therapy, use of [employer]ension [place] TBIL is not recommended. Chloride [Moles/Vol] 106 mmol/L 98-107 [facility] Work Phone: Eosinophils/100 WBC (Bld) 5.6 % 0-5 [facility] Work Phone: Glucose [Mass/Vol] 180 mg/dL 74-106 [facility] Work Phone: Comment on above: Fasting Glucose resu lt greater than or equal to 126 mg/dL suggests DIABETES MELLITUS per A.D.A. criteria. Neutrophils (Bld) [#/Vol] 5.1 10*3/uL 2.0-7.7 [facility] Work Phone: Neutrophils/100 WBC (Bld) 63.4 % 47-70 [facility] Work Phone: Potassium [Moles/Vol] 5.1 mmol/L 3.5-5.1 [facility] Work Phone: Protein [Mass/Vol] 7.7 g/dL 6.4-8.2 [facility] Work Phone: Sodium [Moles/Vol] 136 mmol/L 136-145 [facility] Work Phone: WBC (Bld) [#/Vol] 8.1 10*3/uL 4.4-11.0 [facility] Work Phone: Blood erythrocytes count (nu mber/volume)on 02-08-2022 RBC (Bld) [#/Vol] 4.10 10*6/uL 4.2-5.4 [facility] Work Phone: Blood hemoglobin measurement (mass/volume)on 02-08-2022 Hemoglobin (Bld) [Mass/Vol] 11.9 g/dL 12.0-15.0 [facility] Work Phone: Blood lymphocytes/100 leukoc yteson 02-08-2022 Lymphocytes/100 WBC (Bld) 23.0 % 19-41 [facility] Work Phone: Blood monocytes/100 leukocyt eson 02-08-2022 Monocytes/100 WBC (Bld) 6.9 % 0-10 [facility] Work Phone: Blood platelet mean volumeon 02-08-2022 Platelet mean volume (Bld) [Entitic vol] 9.9 fL 6.2-12.0 [facility] Work Phone: Determination of erythrocyte mean corpuscular volume (MCV)on 02-08-2022 MCV (RBC) [Entitic vol] 94.1 fL 81-99 [facility] Work Phone: Hematocrit Auto (Bld) [Volum e fraction]on 02-08-2022 Hematocrit (Bld) [Volume fraction] 38.6 % 37-47 [facility] Work Phone: Laboratory - Chemistry and C hemistry - challengeon 02-08-2022 ALP [Catalytic activity/Vol] 87 U/L 45-117 [facility] Work Phone: ALT [Catalytic activity/Vol] 16 U/L 13-56 [facility] Work Phone: CO2 [Moles/Vol] 27.0 mmol/L 21.0-32.0 [facility] Work Phone: Globulin (S) [Mass/Vol] 4.3 g/dL 2.2-4.2 [facility] Work Phone: Lipase [Catalytic activity/Vol] 55 U/L 73-393 [facility] Work Phone: Urea nitrogen/Creatinine [Mass ratio] 20.6 mg/mg 10-20 [facility] Work Phone: Laboratory - Hematology and Cell countson 02-08-2022 Erythrocyte distribution width (RBC) [Entitic vol] 46.5 fL 35.1-43.9 [facility] [facility] Work Phone: Erythrocyte distribution width (RBC) [Ratio] 13.3 % 11.6-14.6 [facility] Work Phone: Immature granulocytes/100 WBC (Bld) 0.400 % 0.0-0.9 [facility] Work Phone: Comment on above: IG% - Immature Granu locytes (promyelocytes, myelocytes and metamyelocytes) > 1% indicates that a LEFT SHIFT is Present. MCH (RBC) [Entitic mass] 29.0 pg 27.0-32.0 [facility] Work Phone: Nucleated RBC/100 WBC (Bld) [Ratio] 0 % 0-5 [facility] Work Phone: MCHC Auto (RBC) [Mass/Vol]on 02-08-2022 MCHC (RBC) [Mass/Vol] 30.8 g/dL 32-36 [facility] Work Phone: No Panel Informationon 02-08 Estimated GFR (MDRD) Amer 28 mL/min >60 [facility] Work Phone: Comment on above: GFR Calc Estimated GFR (MDRD) Non-Af Amer 23 mL/min >60 [facility] Work Phone: Comment on above: Non- GFR Calc Platelets bldon 02-08-2022 Platelets (Bld) [#/Vol] 235 10*3/uL 150-450 [facility] Work Phone: Serum or plasma albumin lesly urement (mass/volume)on 02-08-2022 Albumin [Mass/Vol] 3.4 g/dL 3.2-5.0 [facility] Work Phone: Serum or plasma albumin/glob ulin mass ratioon 02-08-2022 Albumin/Globulin [Mass ratio] 0.8 {ratio} 0.9-2.4 [facility] Work Phone: Serum or plasma calcium lesly urement (mass/volume)on 02-08-2022 Calcium [Mass/Vol] 9.6 mg/dL 8.5-10.1 [facility] Work Phone: Serum or plasma creatinine m easurement (mass/volume)on 02-08-2022 Creatinine [Mass/Vol] 2.28 mg/dL 0.55-1.02 [facility] Work Phone: Comment on above: The validity of the calculated GFR & GFRAA in patients over 70 years has not been determined. Clinical correlation is essential. Serum or plasma urea nitroge n measurement (mass/volume)on 02-08-2022 Urea nitrogen [Mass/Vol] 47 mg/dL 7-18 [facility] Work Phone: Thin prep Papanicolaou smear with manual screeningon 02-08-2022 Thin prep Papanicolaou smear with manual screening 16 U/L 15-37 [facility] Work Phone: Thin prep Papanicolaou smear with manual screening 3 5-15 [facility] Work Phone: Laboratory - Hematology and Cell countson 01-10-2022 HbA1c (Bld) [Mass fraction] 7.9 % [facility] Work Phone: Basophil percentageon 2021 Basophil percentage 4.8 mg/dL 2.5-4.9 [facility] Work Phone: Chloride [Moles/Vol] 108 mmol/L 98-[address] [facility] Work Phone: Glucose [Mass/Vol] 204 mg/dL 74-106 [facility] Work Phone: Comment on above: Glucose result great er than or equal to 200 mg/dLsuggests DIABETES MELLITUS per A.D.A. criteria. Potassium [Moles/Vol] 4.7 mmol/L 3.5-5.1 [facility] Work Phone: Sodium [Moles/Vol] 138 mmol/L 136-145 [facility] Work Phone: WBC (Bld) [#/Vol] 7.8 10*3/uL 4.4-11.0 [facility] Work Phone: Blood erythrocytes count (nu mber/volume)on 12-24-2021 RBC (Bld) [#/Vol] 3.67 10*6/uL 4.2-5.4 [facility] Work Phone: Blood hemoglobin measurement (mass/volume)on 12-24-2021 Hemoglobin (Bld) [Mass/Vol] 10.9 g/dL 12.0-15.0 [facility] Work Phone: Blood platelet mean volumeon 12-24-2021 Platelet mean volume (Bld) [Entitic vol] 9.8 fL 6.2-12.0 [facility] Work Phone: Determination of erythrocyte mean corpuscular volume (MCV)on 12-24-2021 MCV (RBC) [Entitic vol] 92.1 fL 81-99 [facility] Work Phone: Hematocrit Auto (Bld) [Volum e fraction]on 12-24-2021 Hematocrit (Bld) [Volume fraction] 33.8 % 37-47 [facility] Work Phone: Laboratory - Chemistry and C hemistry - challengeon 12-24-2021 CO2 [Moles/Vol] 25.0 mmol/L 21.0-32.0 [facility] Work Phone: Urea nitrogen/Creatinine [Mass ratio] 23.2 mg/mg 10-20 [facility] Work Phone: Laboratory - Hematology and Cell countson 12-24-2021 Erythrocyte distribution width (RBC) [Entitic vol] 47.2 fL 35.1-43.9 [facility] Work Phone: Erythrocyte distribution width (RBC) [Ratio] 14.0 % 11.6-14.6 [facility] Work Phone: MCH (RBC) [Entitic mass] 29.7 pg 27.0-32.0 [facility] Work Phone: MCHC Auto (RBC) [Mass/Vol]on 12-24-2021 MCHC (RBC) [Mass/Vol] 32.2 g/dL 32-36 [facility] Work Phone: No Panel Informationon 12-24 Estimated GFR (MDRD) Amer 36 mL/min >60 [facility] Work Phone: Comment on above: GFR Calc Estimated GFR (MDRD) Non-Af Amer 29 mL/min >60 [facility] Work Phone: Comment on above: Non- GFR Calc Parathyroid Hormone (Intact) 55.7 pg/mL 18.4-80.1 [facility] Work Phone: Vitamin D 25-Hydroxy 45.6 ng/mL [facility] Work Phone: Comment on above: Vitamin D 25(OH) Sta tus Range Deficiency <20 ng/mL (50nmol/L) Insufficiency 20 - 30 ng/mL (50 - 75 nmol/L) Sufficiency 30 - 100 ng/mL (75 - 250 nmol/L) Toxicity >100 ng/mL (>250 nmol/L) Platelets bldon 12-24-2021 Platelets (Bld) [#/Vol] 225 10*3/uL 150-450 [facility] Work Phone: Serum or plasma albumin lesly urement (mass/volume)on 12-24-2021 Albumin [Mass/Vol] 3.2 g/dL 3.2-5.0 [facility] Work Phone: Serum or plasma calcium lesly urement (mass/volume)on 12-24-2021 Calcium [Mass/Vol] 8.9 mg/dL 8.5-10.1 [facility] Work Phone: Serum or plasma creatinine m easurement (mass/volume)on 12-24-2021 Creatinine [Mass/Vol] 1.85 mg/dL 0.55-1.02 [facility] Work Phone: Comment on above: The validity of the calculated GFR & GFRAA in patients over 70 years has not been determined. Clinical correlation is essential. Serum or plasma urea nitroge n measurement (mass/volume)on 12-24-2021 Urea nitrogen [Mass/Vol] 43 mg/dL 7-18 [facility] Work Phone: Basophil percentageon 2021 Bilirubin [Mass/Vol] 0.30 mg/dL 0.20-1.00 [facility] Work Phone: Comment on above: For patients on eltr ombopag therapy, use of Dimension [place] TBIL is not recommended. Chloride [Moles/Vol] 104 mmol/L 98-107 [facility] Work Phone: Cholesterol [Mass/Vol] 119 mg/dL <200 [facility] Work Phone: Comment on above: <200 mg/dL Desirable 200-240 mg/dL Borderline >240 mg/dL High Risk Glucose [Mass/Vol] 293 mg/dL 74-106 [facility] Work Phone: Comment on above: Glucose result great er than or equal to 200 mg/dLsuggests DIABETES MELLITUS per A.D.A. criteria. Potassium [Moles/Vol] 5.0 mmol/L 3.5-5.1 [facility] Work Phone: Protein [Mass/Vol] 7.2 g/dL 6.4-8.2 [facility] Work Phone: Sodium [Moles/Vol] 136 mmol/L 136-145 [facility] Work Phone: Triglyceride [Mass/Vol] 79 mg/dL [facility] Work Phone: Comment on above: The drugs N-Acetylcy steine and Metamizole may falsely depress this assay.Serum Triglycerides Reference Interval Normal <150 mg/dL Borderline high 150 - 199 mg/dL High 200 - 499 mg/dL Very High > or = 500 mg/dL WBC (Bld) [#/Vol] 6.4 10*3/uL 4.4-11.0 [facility] Work Phone: Blood erythrocytes count (nu mber/volume)on 12-19-2021 RBC (Bld) [#/Vol] 3.58 10*6/uL 4.2-5.4 [facility] Work Phone: Blood hemoglobin measurement (mass/volume)on 12-19-2021 Hemoglobin (Bld) [Mass/Vol] 10.4 g/dL 12.0-15.0 [facility] Work Phone: Blood platelet mean volumeon 12-19-2021 Platelet mean volume (Bld) [Entitic vol] 10.6 fL 6.2-12.0 [facility] Work Phone: Determination of erythrocyte mean corpuscular volume (MCV)on 12-19-2021 MCV (RBC) [Entitic vol] 93.9 fL 81-99 [facility] Work Phone: Hematocrit Auto (Bld) [Volum e fraction]on 12-19-2021 Hematocrit (Bld) [Volume fraction] 33.6 % 37-47 [facility] Work Phone: Iron measurement (mass/mass) on 12-19-2021 Iron (Unsp spec) [Mass/Mass] 50 ug/dL 50-170 [facility] Work Phone: Laboratory - Chemistry and C hemistry - challengeon 12-19-2021 ALP [Catalytic activity/Vol] 90 U/L 45-117 [facility] Work Phone: ALT [Catalytic activity/Vol] 21 U/L 13-56 [facility] Work Phone: CO2 [Moles/Vol] 26.0 mmol/L 21.0-32.0 [facility] Work Phone: Globulin (S) [Mass/Vol] 4.1 g/dL 2.2-4.2 [facility] Work Phone: Urea nitrogen/Creatinine [Mass ratio] 22.0 mg/mg 10-20 [facility] Work Phone: Laboratory - Hematology and Cell countson 12-19-2021 Erythrocyte distribution width (RBC) [Entitic vol] 47.5 fL 35.1-43.9 [facility] Work Phone: Erythrocyte distribution width (RBC) [Ratio] 13.8 % 11.6-14.6 [facility] Work Phone: MCH (RBC) [Entitic mass] 29.1 pg 27.0-32.0 [facility] Work Phone: MCHC Auto (RBC) [Mass/Vol]on 12-19-2021 MCHC (RBC) [Mass/Vol] 31.0 g/dL 32-36 [facility] Work Phone: No Panel Informationon 12-19 Estimated GFR (MDRD) Amer 35 mL/min >60 [facility] Work Phone: Comment on above: GFR Calc Estimated GFR (MDRD) Non-Af Amer 29 mL/min >60 [facility] Work Phone: Comment on above: Non- GFR Calc Parathyroid Hormone (Intact) 59.6 pg/mL 18.4-80.1 [facility] Work Phone: Thyroid Stimulating Hormone (TSH) 1.48 uIU/mL 0.358-3.74 [facility] Work Phone: Vitamin D 25-Hydroxy 46.2 ng/mL [facility] Work Phone: Comment on above: Vitamin D 25(OH) Sta tus Range Deficiency <20 ng/mL (50nmol/L) Insufficiency 20 - 30 ng/mL (50 - 75 nmol/L) Sufficiency 30 - 100 ng/mL (75 - 250 nmol/L) Toxicity >100 ng/mL (>250 nmol/L) Platelets bldon 12-19-2021 Platelets (Bld) [#/Vol] 237 10*3/uL 150-450 [facility] Work Phone: Serum or plasma albumin lesly urement (mass/volume)on 12-19-2021 Albumin [Mass/Vol] 3.1 g/dL 3.2-5.0 [facility] Work Phone: Serum or plasma albumin/glob ulin mass ratioon 12-19-2021 Albumin/Globulin [Mass ratio] 0.8 {ratio} 0.9-2.4 [facility] Work Phone: Serum or plasma calcium lesly urement (mass/volume)on 12-19-2021 Calcium [Mass/Vol] 8.8 mg/dL 8.5-10.1 [facility] Work Phone: Serum or plasma cholesterol in HDL measurement (mass/volume)on 12-19-2021 Cholesterol in HDL [Mass/Vol] 59 mg/dL [facility] Work Phone: Comment on above: The drugs N-Acetylcy steine and Metamizole may falsely depress this assay. Reference Range HDL <40 mg/dL Low HDL Cholesterol HDL >or= 60 mg/dL High HDL Cholesterol Serum or plasma cholesterol in VLDL measurement (mass/volume)on 12-19-2021 Cholesterol in VLDL [Mass/Vol] 16 mg/dL 5-40 [facility] Work Phone: Serum or plasma creatinine m easurement (mass/volume)on 12-19-2021 Creatinine [Mass/Vol] 1.86 mg/dL 0.55-1.02 [facility] Work Phone: Comment on above: The validity of the calculated GFR & GFRAA in patients over 70 years has not been determined. Clinical correlation is essential. Serum or plasma ferritin allyn surement (mass/volume)on 12-19-2021 Ferritin [Mass/Vol] 38 ng/mL 8-252 [facility] Work Phone: Serum or plasma low density lipoprotein (LDL) cholesterol measurement (mass/volume)on 12-19-2021 Cholesterol in LDL [Mass/Vol] 44 mg/dL 0-130 [facility] Work Phone: Serum or plasma urea nitroge n measurement (mass/volume)on 12-19-2021 Urea nitrogen [Mass/Vol] 41 mg/dL 7-18 [facility] Work Phone: Thin prep Papanicolaou smear with manual screeningon 12-19-2021 Thin prep Papanicolaou smear with manual screening 15 U/L 15-37 [facility] Work Phone: Thin prep Papanicolaou smear with manual screening 6 5-15 [facility] Work Phone: Office Visit: Diabetes follo w upon 03-05-2017 Dietary management education, guidance, and counseling (procedure) yes Invalid Interpretation Code [facility] Work Phone: Documentation of current medications (procedure) Done Invalid Interpretation Code [facility] Work Phone: Fall risk assessment Fall risk assessment Invali d Interpretation Code [facility] Work Phone: Smoking cessation education (procedure) yes Invalid Interpretation Code [facility] Work Phone: Tobacco smoking status NHIS Former Invalid Interpretation Code [facility] Work Phone: Tobacco use [facility] Current every day smoker Invalid Interpretation Code [facility] Work Phone: Office Visit: Diabetic Evalu ationon 02-18-2017 Adolescent depression screening assessment Adolescent depression screening assessment Invalid Interpretation Code [facility] Work Phone: Fall risk assessment No Invalid Interpretation Code [facility] Work Phone: Chart Maintenanceon 01-08-20 17 HbA1c 10.0 % Invalid Interpretation Code [facility] Work Phone: Office Visit: Diabetic Evalu ationon 11-04-2011 General categories [interpretation] of Cervical or vaginal smear or scraping by Cyto stain Hysteectomy Invalid Interpretation Code [facility] Work Phone: Vital Signs Date Time Vital Sign Value Performing Clinician Facility 06-04-2025 12:30-0400 Body temperature 98.4 [degF] Dr. Juliet Lujan MD Work Phone: [facility] 06-04-2025 12:30-0400 Diastolic blood pressure 61 mm[Hg] Dr. Juliet Lujan MD Work Phone: [facility] 06-04-2025 12:30-0400 Heart rate 60 /min Dr. Juliet Lujan MD Work Phone: 9(640)477-416250 [place] [address] 06-04-2025 12:30-0400 Respiratory rate 24 /min Dr. Juliet Lujan MD Work Phone: 9(901)548-150505 [place] [address] 06-04-2025 12:30-0400 SaO2% (BldA) [Mass fraction] 100 % Dr. Juliet Lujan MD Work Phone: 9(523)596-697505 [place] [address] 06-04-2025 12:30-0400 Systolic blood pressure 141 mm[Hg] Dr. Juliet Lujan MD Work Phone: 4(074)657-682405 [place] [address] 06-04-2025 08:30-0400 Inhaled oxygen flow rate 3 L/min Dr. Juliet Lujan MD Work Phone: 7(059)189-245905 [place] [address] 06-04-2025 05:58-0400 Body mass index (BMI) [Ratio] 18.3 kg/m2 Dr. Juliet Lujan MD Work Phone: 8(802)225-619505 [place] [address] 06-04-2025 05:58-0400 Body weight 46.[address] Juliet Lujan MD Work Phone: 6(242)014-477205 [place] [address] 06-04-2025 01:58-0400 Inhaled oxygen concentration 35 % Dr. Juliet Lujan MD Work Phone: 0(963)353-007505 [place] [address] 06-02-2025 09:51-0400 Body height 160.[address] Juliet Lujan MD Work Phone: 4(487)341-408005 [place] [address] 06-02-2025 08:18-0400 Inhaled oxygen flow rate 3 L/min Dr. Juliet Lujan MD Work Phone: 3(539)124-446605 [place] [address] 06-02-2025 08:18-0400 SaO2% (BldA) [Mass fraction] 95 % Dr. Juliet Lujan MD Work Phone: 8(974)525-487805 [place] [address] 06-02-2025 08:08-0400 Body height 160.[address] Juliet Lujan MD Work Phone: 5(196)533-460905 [place] [address] 06-02-2025 08:08-0400 Body mass index (BMI) [Ratio] 17.9 kg/m2 Dr. Juliet Lujan MD Work Phone: 7(022)571-373105 [place] [address] 06-02-2025 08:08-0400 Body weight 45.[address] Juliet Lujan MD Work Phone: 2(072)972-795105 [place] [address] 06-02-2025 07:43-0400 Body temperature 97.7 [degF] Dr. Juliet Lujan MD Work Phone: 7(754)904-539905 [place] [address] 06-02-2025 07:43-0400 Diastolic blood pressure 38 mm[Hg] Dr. Juliet Lujan MD Work Phone: 2(681)806-866905 [place] [address] 06-02-2025 07:43-0400 Heart rate 55 /min Dr. Juliet Lujan MD Work Phone: 7(320)826-780805 [place] [address] 06-02-2025 07:43-0400 Respiratory rate 20 /min Dr. Juliet Lujan MD Work Phone: 5(433)833-542405 [place] [address] 06-02-2025 07:43-0400 Systolic blood pressure 98 mm[Hg] Dr. Juliet Lujan MD Work Phone: 6(009)158-732805 [place] [address] 06-02-2025 05:10-0400 Inhaled oxygen concentration 35 % Dr. Juliet Lujan MD Work Phone: 1(473)298-291005 [place] [address] 06-01-2025 16:30-0400 Body temperature 97.4 [degF] Dr. Juliet Lujan MD Work Phone: 4(041)036-790705 [place] [address] 06-01-2025 16:30-0400 Diastolic blood pressure 34 mm[Hg] Dr. Juliet Lujan MD Work Phone: 1(420)921-389205 [place] [address] 06-01-2025 16:30-0400 Heart rate 64 /min Dr. Juliet Lujan MD Work Phone: 0(022)577-877705 [place] [address] 06-01-2025 16:30-0400 Inhaled oxygen flow rate 3 L/min Dr. Juliet Lujan MD Work Phone: [facility] 06-01-2025 16:30-0400 Respiratory rate 18 /min Dr. Juliet Lujan MD Work Phone: [facility] 06-01-2025 16:30-0400 SaO2% (BldA) [Mass fraction] 100 % Dr. Juliet Lujan MD Work Phone: [facility] 06-01-2025 16:30-0400 Systolic blood pressure 111 mm[Hg] Dr. Juliet Lujan MD Work Phone: [facility] 06-01-2025 15:43-0400 Body mass index (BMI) [Ratio] 16.3 kg/m2 Dr. Juliet Lujan MD Work Phone: 2(624)344-174350 [place] [address] 06-01-2025 15:43-0400 Body weight [address] Juliet Lujan MD Work Phone: 7(780)550-786350 [place] [address] 05-30-2025 11:30-0400 Body height 167.[address] Juliet Lujan MD Work Phone: 7(578)220-117950 [place] [address] 05-28-2025 00:40-0400 Heart rate 79 /min Dr. Juliet Lujan MD Work Phone: [facility] 05-28-2025 00:40-0400 Respiratory rate 20 /min Dr. Juliet Lujan MD Work Phone: [facility] 05-28-2025 00:31-0400 Body temperature 98.5 [degF] Dr. Juliet Lujan MD Work Phone: [facility] 05-28-2025 00:31-0400 Diastolic blood pressure 63 mm[Hg] Dr. Juliet Lujan MD Work Phone: [facility] 05-28-2025 00:31-0400 SaO2% (BldA) [Mass fraction] 97 % Dr. Juliet Lujan MD Work Phone: [facility] 05-28-2025 00:31-0400 Systolic blood pressure 165 mm[Hg] Dr. Juliet Lujan MD Work Phone: 2(810)770-974850 [place] [address] 05-27-2025 23:00-0400 Inhaled oxygen flow rate 3 L/min Dr. Juliet Lujan MD Work Phone: 5(005)689-134405 [place] [address] 05-27-2025 19:07-0400 Body height 167.[address] Juliet Lujan MD Work Phone: 3(330)044-475805 [place] [address] 05-27-2025 19:07-0400 Body mass index (BMI) [Ratio] 16.8 kg/m2 Dr. Juliet Lujan MD Work Phone: 2(154)606-676505 [place] [address] 05-27-2025 19:07-0400 Body weight 47.[address] Juliet Lujan MD Work Phone: 4(555)972-269105 [place] [address] 05-20-2025 22:40-0400 Body temperature 97.8 [degF] Dr. Juliet Lujan MD Work Phone: 8(120)579-384905 [place] [address] 05-20-2025 22:40-0400 Diastolic blood pressure 65 mm[Hg] Dr. Juliet Lujan MD Work Phone: 4(645)552-519405 [place] [address] 05-20-2025 22:40-0400 Heart rate 52 /min Dr. Juliet Lujan MD Work Phone: 0(481)812-337705 [place] [address] 05-20-2025 22:40-0400 Respiratory rate 16 /min Dr. Juliet Lujan MD Work Phone: 0(549)617-909905 [place] [address] 05-20-2025 22:40-0400 SaO2% (BldA) [Mass fraction] 100 % Dr. Juliet Lujan MD Work Phone: 1(612)608-297005 [place] [address] 05-20-2025 22:40-0400 Systolic blood pressure 194 mm[Hg] Dr. Juliet Lujan MD Work Phone: 7(244)263-511105 [place] [address] 05-20-2025 22:19-0400 Body mass index (BMI) [Ratio] 17.9 kg/m2 Dr. Juliet Lujan MD Work Phone: [facility] 05-20-2025 22:19-0400 Body weight 50.[address] Juliet Lujan MD Work Phone: [facility] 05-20-2025 20:21-0400 Body height 167.[address] Juliet Lujan MD Work Phone: 7(244)482-573650 [place] [address] 05-20-2025 20:21-0400 Inhaled oxygen flow rate 3 L/min Dr. Juliet Lujan MD Work Phone: [facility] 05-18-2025 07:26-0400 Body mass index (BMI) [Ratio] 16 kg/m2 Dr. Juliet Lujan MD Work Phone: 2(298)449-196205 [place] [address] 05-18-2025 07:26-0400 Body temperature 97.2 [degF] Dr. Juliet Lujan MD Work Phone: 5(012)725-423250 [place] [address] 05-18-2025 07:26-0400 Body weight 44.[address] Juliet Lujan MD Work Phone: [facility] 05-18-2025 07:26-0400 Diastolic blood pressure 59 mm[Hg] Dr. Juliet Lujan MD Work Phone: [facility] 05-18-2025 07:26-0400 Heart rate 56 /min Dr. Juliet Lujan MD Work Phone: [facility] 05-18-2025 07:26-0400 Inhaled oxygen flow rate 3 L/min Dr. Juliet Lujan MD Work Phone: [facility] 05-18-2025 07:26-0400 Respiratory rate 16 /min Dr. Juliet Lujan MD Work Phone: [facility] 05-18-2025 07:26-0400 SaO2% (BldA) [Mass fraction] 95 % Dr. Juliet uLjan MD Work Phone: [facility] 05-18-2025 07:26-0400 Systolic blood pressure 142 mm[Hg] Dr. Juliet Lujan MD Work Phone: [facility] 05-08-2025 12:50-0400 Body temperature 98.6 [degF] Dr. Juliet Lujan MD Work Phone: [facility] 05-08-2025 12:50-0400 Diastolic blood pressure 65 mm[Hg] Dr. Juliet Lujan MD Work Phone: 6(691)078-336050 [place] [address] 05-08-2025 12:50-0400 Heart rate 61 /min Dr. Juliet Lujan MD Work Phone: 7(919)259-136905 [place] [address] 05-08-2025 12:50-0400 Respiratory rate 16 /min Dr. Juliet Lujan MD Work Phone: 7(514)436-029405 [place] [address] 05-08-2025 12:50-0400 SaO2% (BldA) [Mass fraction] 100 % Dr. Juliet Lujan MD Work Phone: 7(232)120-169805 [place] [address] 05-08-2025 12:50-0400 Systolic blood pressure 171 mm[Hg] Dr. Juliet Lujan MD Work Phone: 1(747)867-348505 [place] [address] 05-08-2025 09:13-0400 Inhaled oxygen flow rate 2 L/min Dr. Juliet Lujan MD Work Phone: 5(199)996-802405 [place] [address] 05-08-2025 08:01-0400 Body height 167.[address] Juliet Lujan MD Work Phone: 9(865)881-573705 [place] [address] 05-08-2025 08:01-0400 Body mass index (BMI) [Ratio] 16.3 kg/m2 Dr. Juliet Lujan MD Work Phone: 0(209)302-293205 [place] [address] 05-08-2025 08:01-0400 Body weight [address] Juliet Lujan MD Work Phone: 4(570)126-890505 [place] [address] 04-09-2025 13:59-0400 Body temperature 97.8 [degF] Dr. Juliet Lujan MD Work Phone: [facility] 04-09-2025 13:59-0400 Diastolic blood pressure 78 mm[Hg] Dr. Juliet Lujan MD Work Phone: [facility] 04-09-2025 13:59-0400 Heart rate 50 /min Dr. Juliet Lujan MD Work Phone: [facility] 04-09-2025 13:59-0400 Respiratory rate 16 /min Dr. Juliet Lujan MD Work Phone: [facility] 04-09-2025 13:59-0400 SaO2% (BldA) [Mass fraction] 100 % Dr. Juliet Lujan MD Work Phone: [facility] 04-09-2025 13:59-0400 Systolic blood pressure 163 mm[Hg] Dr. Juliet Lujan MD Work Phone: [facility] 04-09-2025 12:22-0400 Body height 167.[address] Juliet Lujan MD Work Phone: [facility] 04-09-2025 12:22-0400 Inhaled oxygen flow rate 3 L/min Dr. Juliet Lujan MD Work Phone: [facility] 03-22-2025 13:04-0400 Body height 167.[address] Christy Fontenot DO Work Phone: [facility] 03-22-2025 13:04-0400 Body temperature 98.2 [degF] Dr. Christy Fontenot DO Work Phone: [facility] 03-22-2025 13:04-0400 Diastolic blood pressure 66 mm[Hg] Dr. Christy Fontenot DO Work Phone: [facility] 03-22-2025 13:04-0400 Heart rate 55 /min Dr. Christy Fontenot DO Work Phone: [facility] 03-22-2025 13:04-0400 Respiratory rate 16 /min Dr. Christy Fontenot DO Work Phone: [facility] 03-22-2025 13:04-0400 SaO2% (BldA) [Mass fraction] 100 % Dr. Christy Fontenot DO Work Phone: [facility] 03-22-2025 13:04-0400 Systolic blood pressure 177 mm[Hg] Dr. Christy Fontenot DO Work Phone: [facility] 01-27-2025 08:42-0400 Body mass index (BMI) [Ratio] 17.2 kg/m2 Dr. Christy Fontenot DO Work Phone: [facility] 01-27-2025 08:42-0400 Body weight 48.[address] Christy Fontenot DO Work Phone: [facility] 01-27-2025 08:42-0400 Diastolic blood pressure 72 mm[Hg] Dr. Christy Fontenot DO Work Phone: [facility] 01-27-2025 08:42-0400 Heart rate 65 /min Dr. Christy Fontenot DO Work Phone: [facility] 01-27-2025 08:42-0400 Inhaled oxygen flow rate 3 L/min Dr. Christy Fontenot DO Work Phone: [facility] 01-27-2025 08:42-0400 SaO2% (BldA) [Mass fraction] 99 % Dr. Christy Fontenot DO Work Phone: [facility] 01-27-2025 08:42-0400 Systolic blood pressure 172 mm[Hg] Dr. Christy Fontenot DO Work Phone: [facility] 01-11-2025 15:17-0400 Body temperature 97.8 [degF] Dr. Juliet Lujan MD Work Phone: [facility] 01-11-2025 15:17-0400 Body weight 50.[address] Juliet Lujan MD Work Phone: [facility] 01-11-2025 15:17-0400 Diastolic blood pressure 52 mm[Hg] Dr. Juliet Lujan MD Work Phone: [facility] 01-11-2025 15:17-0400 Heart rate 60 /min Dr. Juliet Lujan MD Work Phone: [facility] 01-11-2025 15:17-0400 Inhaled oxygen flow rate 3 L/min Dr. Juliet Lujan MD Work Phone: 0(790)666-176850 [place] [address] 01-11-2025 15:17-0400 Respiratory rate 16 /min Dr. Juliet Lujan MD Work Phone: 1(473)635-510850 [place] [address] 01-11-2025 15:17-0400 SaO2% (BldA) [Mass fraction] 100 % Dr. Juliet Lujan MD Work Phone: 6(893)814-940705 [place] [address] 01-11-2025 15:17-0400 Systolic blood pressure 125 mm[Hg] Dr. Juliet Lujan MD Work Phone: 8(048)289-575505 [place] [address] 01-10-2025 09:10-0400 Body height 167.[address] Juliet Lujan MD Work Phone: 0(658)274-782305 [place] [address] 01-06-2025 09:46-0500 Inhaled oxygen flow rate 2 L/min Dr. Juliet Lujan MD Work Phone: [facility] 01-06-2025 08:32-0500 Heart rate 65 /min Dr. Juliet Lujan MD Work Phone: 3(939)635-722950 [place] [address] 01-06-2025 08:27-0500 Body temperature 97.6 [degF] Dr. Juliet Lujan MD Work Phone: [facility] 01-06-2025 08:27-0500 Diastolic blood pressure 54 mm[Hg] Dr. Juliet Lujan MD Work Phone: 5(682)900-449705 [place] [address] 01-06-2025 08:27-0500 Respiratory rate 18 /min Dr. Juliet Lujan MD Work Phone: 1(418)825-682405 [place] [address] 01-06-2025 08:27-0500 SaO2% (BldA) [Mass fraction] 99 % Dr. Juliet Lujan MD Work Phone: [facility] 01-06-2025 08:27-0500 Systolic blood pressure 143 mm[Hg] Dr. Juliet Lujan MD Work Phone: [facility] 01-05-2025 16:00-0500 Body mass index (BMI) [Ratio] 16.5 kg/m2 Dr. Juliet Lujan MD Work Phone: 0(859)302-859850 [place] [address] 01-05-2025 16:00-0500 Body weight 46.[address] Juliet Lujan MD Work Phone: 8(061)055-298105 [place] [address] 01-05-2025 14:33-0500 Inhaled oxygen concentration 30 % Dr. Juliet Lujan MD Work Phone: 5(301)043-677105 [place] [address] 12-28-2024 19:34-0500 Body temperature 97.7 [degF] Dr. Juliet Lujan MD Work Phone: 0(229)419-757505 [place] [address] 12-28-2024 19:34-0500 Diastolic blood pressure 54 mm[Hg] Dr. Juliet Lujan MD Work Phone: 5(591)436-531505 [place] [address] 12-28-2024 19:34-0500 Heart rate 61 /min Dr. Juliet Lujan MD Work Phone: 4(023)172-502805 [place] [address] 12-28-2024 19:34-0500 Respiratory rate 16 /min Dr. Juliet Lujan MD Work Phone: 3(886)585-910021 [address] 12-28-2024 19:34-0500 SaO2% (BldA) [Mass fraction] 100 % Dr. Juliet Lujan MD Work Phone: 3(206)699-144050 [place] [address] 12-28-2024 19:34-0500 Systolic blood pressure 118 mm[Hg] Dr. Juliet Lujan MD Work Phone: 9(154)580-330705 [place] [address] 12-28-2024 13:56-0500 Inhaled oxygen flow rate 6 L/min Dr. Juliet Lujan MD Work Phone: 2(566)080-608050 [place] [address] 12-28-2024 10:12-0500 Body mass index (BMI) [Ratio] 17.8 kg/m2 Dr. Juliet Lujan MD Work Phone: [facility] 12-28-2024 10:12-0500 Body weight [address] Juliet Lujan MD Work Phone: 6(531)011-247850 [place] [address] 12-16-2024 13:53-0500 Body mass index (BMI) [Ratio] 17.4 kg/m2 Dr. Juliet Lujan MD Work Phone: 3(526)494-373021 [address] 12-16-2024 13:53-0500 Body weight 48.[address] Juliet Lujan MD Work Phone: 3(602)926-286805 [place] [address] 12-16-2024 13:53-0500 Diastolic blood pressure 71 mm[Hg] Dr. Juliet Lujan MD Work Phone: 9(343)825-184705 [place] [address] 12-16-2024 13:53-0500 Heart rate 61 /min Dr. Juliet Lujan MD Work Phone: 6(079)357-314950 [place] [address] 12-16-2024 13:53-0500 Inhaled oxygen flow rate 3 L/min Dr. Juliet Lujan MD Work Phone: 3(756)918-377750 [place] [address] 12-16-2024 13:53-0500 Respiratory rate 18 /min Dr. Juliet Lujan MD Work Phone: 4(601)629-049550 [place] [address] 12-16-2024 13:53-0500 SaO2% (BldA) [Mass fraction] 100 % Dr. Juliet Lujan MD Work Phone: 9(636)029-959550 [place] [address] 12-16-2024 13:53-0500 Systolic blood pressure 164 mm[Hg] Dr. Juliet Lujan MD Work Phone: 1(464)808-098021 [address] 12-02-2024 14:48-0500 Body temperature 98.4 [degF] Dr. Juliet Lujan MD Work Phone: 9(228)379-747721 [address] 12-02-2024 14:48-0500 Body weight 49.[address] Juliet Lujan MD Work Phone: 7(680)866-089050 [place] [address] 12-02-2024 14:48-0500 Diastolic blood pressure 65 mm[Hg] Dr. Juliet Lujan MD Work Phone: 8(927)026-478405 [place] [address] 12-02-2024 14:48-0500 Heart rate 65 /min Dr. Juliet Lujan MD Work Phone: 9(237)996-639505 [place] [address] 12-02-2024 14:48-0500 Inhaled oxygen flow rate 3 L/min Dr. Juliet Lujan MD Work Phone: 6(344)787-170405 [place] [address] 12-02-2024 14:48-0500 Respiratory rate 16 /min Dr. Juliet Lujan MD Work Phone: 4(357)280-655505 [place] [address] 12-02-2024 14:48-0500 SaO2% (BldA) [Mass fraction] 99 % Dr. Juliet Lujan MD Work Phone: 1(091)249-429005 [place] [address] 12-02-2024 14:48-0500 Systolic blood pressure 161 mm[Hg] Dr. Juliet Lujan MD Work Phone: 6(415)527-557905 [place] [address] 11-20-2024 23:26-0500 Body temperature 98.3 [degF] Dr. Juliet Lujan MD Work Phone: 0(438)943-144905 [place] [address] 11-20-2024 23:26-0500 Diastolic blood pressure 49 mm[Hg] Dr. Juliet Lujan MD Work Phone: 0(217)776-501105 [place] [address] 11-20-2024 23:26-0500 Heart rate 73 /min Dr. Juliet Lujan MD Work Phone: 3(735)672-836205 [place] [address] 11-20-2024 23:26-0500 Respiratory rate 19 /min Dr. Juliet Lujan MD Work Phone: 1(012)311-181605 [place] [address] 11-20-2024 23:26-0500 SaO2% (BldA) [Mass fraction] 100 % Dr. Juliet Lujan MD Work Phone: 1(594)390-888805 [place] [address] 11-20-2024 23:26-0500 Systolic blood pressure 119 mm[Hg] Dr. Juliet Lujan MD Work Phone: [facility] 11-20-2024 18:44-0500 Body mass index (BMI) [Ratio] 17.9 kg/m2 Dr. Juliet Lujan MD Work Phone: 4(908)392-228950 [place] [address] 11-20-2024 18:44-0500 Body weight 50.[address] Juliet Lujan MD Work Phone: 8(311)556-730950 [place] [address] 11-20-2024 18:44-0500 Inhaled oxygen flow rate 3 L/min Dr. Juliet Lujan MD Work Phone: 4(763)083-608405 [place] [address] 11-04-2024 16:07-0500 Body mass index (BMI) [Ratio] 18.1 kg/m2 Dr. Juliet Lujan MD Work Phone: 5(242)275-958721 [address] 11-04-2024 16:07-0500 Body temperature 97.2 [degF] Dr. Juliet Lujan MD Work Phone: 6(495)425-481221 [address] 11-04-2024 16:07-0500 Body weight 50.[address] Juliet Lujan MD Work Phone: 5(065)425-999721 [address] 11-04-2024 16:07-0500 Diastolic blood pressure 84 mm[Hg] Dr. Juliet Lujan MD Work Phone: 6(185)190-329850 [place] [address] 11-04-2024 16:07-0500 Heart rate 72 /min Dr. Juliet Lujan MD Work Phone: 6(746)805-723950 [place] [address] 11-04-2024 16:07-0500 Respiratory rate 15 /min Dr. Juliet Lujan MD Work Phone: 4(466)274-341450 [place] [address] 11-04-2024 16:07-0500 SaO2% (BldA) [Mass fraction] 100 % Dr. Juliet Lujan MD Work Phone: 8(477)618-412850 [place] [address] 11-04-2024 16:07-0500 Systolic blood pressure 194 mm[Hg] Dr. Juliet Lujan MD Work Phone: [facility] 11-04-2024 15:51-0500 Diastolic blood pressure 82 mm[Hg] Dr. Juliet Lujan MD Work Phone: 8(381)778-631650 [place] [address] 11-04-2024 15:51-0500 Systolic blood pressure 218 mm[Hg] Dr. Juliet Lujan MD Work Phone: 2(429)553-585905 [place] [address] 11-04-2024 08:00-0500 Body mass index (BMI) [Ratio] 18.1 kg/m2 Dr. Juliet Lujan MD Work Phone: 1(552)402-176005 [place] [address] 11-04-2024 08:00-0500 Body temperature 97.4 [degF] Dr. Juliet Lujan MD Work Phone: 4(329)111-349805 [place] [address] 11-04-2024 08:00-0500 Body weight 50.[address] Juliet Lujan MD Work Phone: 8(812)138-784705 [place] [address] 11-04-2024 08:00-0500 Heart rate 75 /min Dr. Juliet Lujan MD Work Phone: 8(048)741-540005 [place] [address] 11-04-2024 08:00-0500 Inhaled oxygen flow rate 3 L/min Dr. Juliet Lujan MD Work Phone: 2(562)342-432005 [place] [address] 11-04-2024 08:00-0500 Respiratory rate 20 /min Dr. Juliet Lujan MD Work Phone: 1(622)581-647805 [place] [address] 11-04-2024 08:00-0500 SaO2% (BldA) [Mass fraction] 99 % Dr. Juliet Lujan MD Work Phone: 6(804)043-689905 [place] [address] 10-07-2024 13:43-0500 Body mass index (BMI) [Ratio] 16.8 kg/m2 Dr. Juliet Lujan MD Work Phone: 9(377)736-208005 [place] [address] 10-07-2024 13:43-0500 Body weight 47.[address] Juliet Lujan MD Work Phone: 5(829)263-073705 [place] [address] 10-07-2024 13:43-0500 Diastolic blood pressure 73 mm[Hg] Dr. Juliet Lujan MD Work Phone: [facility] 10-07-2024 13:43-0500 Heart rate 76 /min Dr. Juliet Lujan MD Work Phone: [facility] 10-07-2024 13:43-0500 Inhaled oxygen flow rate 3 L/min Dr. Juliet Lujan MD Work Phone: [facility] 10-07-2024 13:43-0500 SaO2% (BldA) [Mass fraction] 100 % Dr. Juliet Lujan MD Work Phone: [facility] 10-07-2024 13:43-0500 Systolic blood pressure 172 mm[Hg] Dr. Juliet Lujan MD Work Phone: [facility] 08-24-2024 15:33-0400 Heart rate 83 /min Lucina [employer] DO Work Phone: [facility] [employer] 08-24-2024 15:33-0400 Respiratory rate 12 /min [employer] Work Phone: [facility] [employer] 08-24-2024 15:33-0400 SaO2% (BldA) [Mass fraction] 99 % Lucina [employer] DO Work Phone: [facility] [employer] 08-24-2024 07:34-0400 Body temperature 97.9 [degF] Lucina [employer] DO Work Phone: [facility] [employer] 08-24-2024 07:34-0400 Diastolic blood pressure 58 mm[Hg] [employer] DO Work Phone: [facility] [employer] 08-24-2024 07:34-0400 Systolic blood pressure 141 mm[Hg] [employer] Work Phone: [facility] [employer] 08-24-2024 06:00-0400 Body mass index (BMI) [Ratio] 19.43 kg/m2 Lucina Galvan DO Work Phone: [facility] [employer] 08-24-2024 06:00-0400 Body weight 54.6 kg Lucina Galvan DO Work Phone: [facility] [employer] 08-22-2024 23:29-0400 Body height 167.6 cm Lucina Galvan DO Work Phone: [facility] [employer] 08-21-2024 15:09-0400 SaO2% (BldA) [Mass fraction] 96.1 % Lucina Galvan DO Work Phone: [facility] [employer] 08-21-2024 09:09-0400 SaO2% (BldA) [Mass fraction] 96.6 % Lucina Galvan DO Work Phone: [facility] [employer] 08-20-2024 21:28-0400 SaO2% (BldA) [Mass fraction] 98.1 % Lucina Galvan DO Work Phone: [facility] [employer] 08-20-2024 16:12-0400 SaO2% (BldA) [Mass fraction] 96.9 % Lucina Galvan DO Work Phone: [facility] [employer] 08-20-2024 13:02-0400 SaO2% (BldA) [Mass fraction] 68.2 % Lucina Galvan DO Work Phone: [facility] [employer] 08-20-2024 10:31-0400 SaO2% (BldA) [Mass fraction] 92.1 % Lucina Galvan DO Work Phone: [facility] [employer] 08-13-2024 07:08-0400 SaO2% (BldA) [Mass fraction] 95.8 % Lucina Galvan DO Work Phone: [facility] [employer] 08-10-2024 12:21-0400 Diastolic blood pressure 56 mm[Hg] Colin Peoples MD Work Phone: [facility] 08-10-2024 12:21-0400 Heart rate 81 /min Colin Peoples MD Work Phone: [facility] 08-10-2024 12:21-0400 Systolic blood pressure 133 mm[Hg] Colin Peoples MD Work Phone: [facility] 08-10-2024 12:17-0400 Body temperature 97 [degF] Colin Peoples MD Work Phone: [facility] [employer] 08-10-2024 12:17-0400 Respiratory rate 16 /min Colin Peoples MD Work Phone: [facility] [employer] 08-10-2024 12:17-0400 SaO2% (BldA) [Mass fraction] 100 % Colin Peoples MD Work Phone: [facility] 08-07-2024 04:00-0400 Body mass index (BMI) [Ratio] 20.43 kg/m2 Colin Peoples MD Work Phone: [facility] [employer] 08-07-2024 04:00-0400 Body weight 57.4 kg Colin Peoples MD Work Phone: [facility] 08-03-2024 13:55-0400 Body height 167.6 cm Colin Peoples MD Work Phone: [facility] 07-31-2024 06:18-0400 SaO2% (BldA) [Mass fraction] 98.0 % Colin Peoples MD Work Phone: [facility] 02-05-2024 07:48-0400 Body height 167.[address] Sin Lujan Work Phone: [facility] 02-05-2024 07:48-0400 Body mass index (BMI) [Ratio] 15.1 kg/m2 Dr. Sin Lujan Work Phone: [facility] 02-05-2024 07:48-0400 Body temperature 94.6 [degF] Dr. Sin Lujan Work Phone: [facility] 02-05-2024 07:48-0400 Body weight 42.[address] Sin Lujan Work Phone: [facility] 02-05-2024 07:48-0400 Diastolic blood pressure 66 mm[Hg] Dr. Sin Lujan Work Phone: [facility] 02-05-2024 07:48-0400 Heart rate 61 /min Dr. Sin Lujan Work Phone: [facility] 02-05-2024 07:48-0400 Inhaled oxygen flow rate 3 L/min Dr. Sin Lujan Work Phone: [facility] 02-05-2024 07:48-0400 Respiratory rate 18 /min Dr. Sin Lujan Work Phone: [facility] 02-05-2024 07:48-0400 SaO2% (BldA) [Mass fraction] 99 % Dr. Sin Lujan Work Phone: [facility] 02-05-2024 07:48-0400 Systolic blood pressure 107 mm[Hg] Dr. Sin Lujan Work Phone: [facility] 12-03-2023 10:07-0500 Body height 167.[address] Sin Lujan Work Phone: [facility] 12-03-2023 10:07-0500 Body mass index (BMI) [Ratio] 16.2 kg/m2 Dr. Sin Lujan Work Phone: [facility] 12-03-2023 10:07-0500 Body temperature 97.8 [degF] Dr. Sin Lujan Work Phone: [facility] 12-03-2023 10:07-0500 Body weight 45.[address] Sin Lujan Work Phone: [facility] 12-03-2023 10:07-0500 Diastolic blood pressure 75 mm[Hg] Dr. Sin Lujan Work Phone: [facility] 12-03-2023 10:07-0500 Heart rate 52 /min Dr. Sin Lujan Work Phone: [facility] 12-03-2023 10:07-0500 Respiratory rate 16 /min Dr. Sin Lujan Work Phone: [facility] 12-03-2023 10:07-0500 SaO2% (BldA) [Mass fraction] 92 % Dr. Sin Lujan Work Phone: [facility] 12-03-2023 10:07-0500 Systolic blood pressure 148 mm[Hg] Dr. Sin Lujan Work Phone: [facility] 11-18-2023 10:57-0500 Body height 167.[address] Sin Lujan Work Phone: [facility] 11-18-2023 10:57-0500 Body mass index (BMI) [Ratio] 16 kg/m2 Dr. Sin Lujan Work Phone: [facility] 11-18-2023 10:57-0500 Body weight 44.[address] Sin Lujan Work Phone: [facility] 11-18-2023 10:57-0500 Diastolic blood pressure 72 mm[Hg] Dr. Sin Lujan Work Phone: [facility] 11-18-2023 10:57-0500 Heart rate 59 /min Dr. Sin Lujan Work Phone: [facility] 11-18-2023 10:57-0500 Inhaled oxygen flow rate 3 L/min Dr. Sin Lujan Work Phone: [facility] 11-18-2023 10:57-0500 Respiratory rate 18 /min Dr. Sin Lujan Work Phone: [facility] 11-18-2023 10:57-0500 SaO2% (BldA) [Mass fraction] 99 % Dr. Sin Lujan Work Phone: [facility] 11-18-2023 10:57-0500 Systolic blood pressure 148 mm[Hg] Dr. Sin Lujan Work Phone: [facility] 10-29-2023 08:59-0500 Body height 167.[address] Sin Lujan Work Phone: [facility] 10-29-2023 08:59-0500 Body mass index (BMI) [Ratio] 15.8 kg/m2 Dr. Sin Lujan Work Phone: [facility] 10-29-2023 08:59-0500 Body temperature 97.4 [degF] Dr. Sin Lujan Work Phone: [facility] 10-29-2023 08:59-0500 Body weight 44.[address] Sin Lujan Work Phone: [facility] 10-29-2023 08:59-0500 Diastolic blood pressure 63 mm[Hg] Dr. Sin Lujan Work Phone: [facility] 10-29-2023 08:59-0500 Heart rate 67 /min Dr. Sin Lujan Work Phone: [facility] 10-29-2023 08:59-0500 Inhaled oxygen flow rate 3 L/min Dr. Sin Lujan Work Phone: [facility] 10-29-2023 08:59-0500 Respiratory rate 22 /min Dr. Sin Lujan Work Phone: [facility] 10-29-2023 08:59-0500 SaO2% (BldA) [Mass fraction] 99 % Dr. Sin Lujan Work Phone: [facility] 10-29-2023 08:59-0500 Systolic blood pressure 121 mm[Hg] Dr. Sin Lujan Work Phone: [facility] 07-14-2023 10:44-0400 Body height 167.64 cm [employer] Jeanna Davis [employer]IST Work Phone: [facility] 07-14-2023 10:44-0400 Body mass index (BMI) [Ratio] 15.3 kg/m2 [employer] Jeanna Davis [employer]IST Work Phone: [facility] 07-14-2023 10:44-0400 Body temperature 97.8 [degF] [employer]IST-C Jeanna Davis DA[employer] NUTRITION SPECIALIST Work Phone: [facility] 07-14-2023 10:44-0400 Body weight 43.26 kg [employer]IST-C Jeanna Davis [employer] N[employer] SPECIALIST Work Phone: [facility] 07-14-2023 10:44-0400 Diastolic blood pressure 72 mm[Hg] [employer] SPECIALIST-C Jeanna Davis DA[employer]Y NUTRITION SPECIALIST Work Phone: [facility] 07-14-2023 10:44-0400 Heart rate 70 /min [employer]IST-C Jeanna Davis DA[employer]Y NUTRITION SPECIALIST Work Phone: [facility] 07-14-2023 10:44-0400 Respiratory rate 16 /min [employer] SPECIALIST-C Jeanna Davis DAIRY NUTRITION SPECIALIST Work Phone: [facility] 07-14-2023 10:44-0400 SaO2% (BldA) [Mass fraction] 95 % [employer]IST-C Jeanna Davis DA[employer]Y NUTRITION SPECIALIST Work Phone: [facility] 07-14-2023 10:44-0400 Systolic blood pressure 144 mm[Hg] [employer] SPECIALIST-C Jeanna Davis DAIRY NUTRITION SPECIALIST Work Phone: [facility] 06-25-2023 05:47-0400 Body mass index (BMI) [Ratio] 15.7 kg/m2 [employer] SPECIALIST-C Jeanna Davis DAIRY NUTRITION SPECIALIST Work Phone: [facility] 06-25-2023 05:47-0400 Body temperature 96.8 [degF] [employer] SPECIALIST-C Jeanna Davis DA[employer]Y NUTRITION SPECIALIST Work Phone: [facility] 06-25-2023 05:47-0400 Body weight 44.45 kg [employer] SPECIALIST-C Jeanna Davis DAIRY NUTRITION SPECIALIST Work Phone: [facility] 06-25-2023 05:47-0400 Diastolic blood pressure 75 mm[Hg] [employer] SPECIALIST-C Jeanna Davis DAIRY NUTRITION SPECIALIST Work Phone: [facility] 06-25-2023 05:47-0400 Heart rate 62 /min [employer] SPECIALIST-C Jeanna Davis DAIRY NUTRITION SPECIALIST Work Phone: [facility] 06-25-2023 05:47-0400 Respiratory rate 16 /min [employer] SPECIALIST-C Jeanna Davis DA[employer]Y NUTRITION SPECIALIST Work Phone: [facility] 06-25-2023 05:47-0400 SaO2% (BldA) [Mass fraction] 96 % [employer] SPECIALIST-C Jeanna Davis DA[employer]Y NUTRITION SPECIALIST Work Phone: [facility] 06-25-2023 05:47-0400 Systolic blood pressure 136 mm[Hg] [employer] N[employer]ITION SPECIALIST-C Jeanna Davis DAIRY NUTRITION SPECIALIST Work Phone: [facility] 06-12-2023 08:36-0400 Body height 167.[address] Sin Lujan Work Phone: [facility] 06-12-2023 08:36-0400 Body weight 45.[address] Sin Lujan Work Phone: [facility] 06-12-2023 08:36-0400 Heart rate 59 /min Dr. Sin Lujan Work Phone: [facility] 06-12-2023 08:36-0400 Inhaled oxygen flow rate 2 L/min Dr. Sin Lujan Work Phone: [facility] 06-12-2023 08:36-0400 SaO2% (BldA) [Mass fraction] 89 % Dr. Sin Lujan Work Phone: [facility] 04-09-2023 14:31-0400 Body height 167.[address] Sin Lujan Work Phone: [facility] 04-09-2023 14:31-0400 Body mass index (BMI) [Ratio] 16 kg/m2 Dr. Sin Lujan Work Phone: [facility] 04-09-2023 14:31-0400 Body weight 44.[address] iSn Lujan Work Phone: [facility] 04-09-2023 14:31-0400 Diastolic blood pressure 65 mm[Hg] Dr. Sin Lujan Work Phone: [facility] 04-09-2023 14:31-0400 Heart rate 59 /min Dr. Sin Lujan Work Phone: [facility] 04-09-2023 14:31-0400 Respiratory rate 18 /min Dr. Sin Lujan Work Phone: [facility] 04-09-2023 14:31-0400 Systolic blood pressure 113 mm[Hg] Dr. Sin Lujan Work Phone: [facility] 02-17-2023 07:47-0400 Body height 167.[address] Sin Lujan Work Phone: [facility] 02-17-2023 07:47-0400 Body mass index (BMI) [Ratio] 16 kg/m2 Dr. Sin Lujan Work Phone: [facility] 02-17-2023 07:47-0400 Body temperature 97 [degF] Dr. Sin Lujan Work Phone: [facility] 02-17-2023 07:47-0400 Body weight 44.[address] Sin Lujan Work Phone: [facility] 02-17-2023 07:47-0400 Diastolic blood pressure 58 mm[Hg] Dr. Sin Lujan Work Phone: [facility] 02-17-2023 07:47-0400 Heart rate 69 /min Dr. Sin Lujan Work Phone: [facility] 02-17-2023 07:47-0400 Respiratory rate 18 /min Dr. Sin Lujan Work Phone: [facility] 02-17-2023 07:47-0400 SaO2% (BldA) [Mass fraction] 95 % Dr. Sin Lujan Work Phone: [facility] 02-17-2023 07:47-0400 Systolic blood pressure 98 mm[Hg] Dr. Sin Lujan Work Phone: [facility] 01-01-2023 13:19-0500 Body mass index (BMI) [Ratio] 16.2 kg/m2 Dr. Sin Lujan Work Phone: [facility] 01-01-2023 13:19-0500 Body temperature 96.9 [degF] Dr. Sin Lujan Work Phone: [facility] 01-01-2023 13:19-0500 Body weight 45.[address] Sin Lujan Work Phone: [facility] 01-01-2023 13:19-0500 Diastolic blood pressure 77 mm[Hg] Dr. Sin Lujan Work Phone: [phone] [place] [address] 01-01-2023 13:19-0500 Heart rate 67 /min Dr. Sin Lujan Work Phone: [facility] 01-01-2023 13:19-0500 Respiratory rate 18 /min Dr. Sin Lujan Work Phone: [facility] 01-01-2023 13:19-0500 SaO2% (BldA) [Mass fraction] 92 % Dr. Sin Lujan Work Phone: [facility] 01-01-2023 13:19-0500 Systolic blood pressure 143 mm[Hg] Dr. Sin Lujan Work Phone: [facility] 09-05-2022 07:40-0400 Body height 167.[address] Sin Lujan Work Phone: [facility] Work Phone: 09-05-2022 07:40-0400 Body mass index (BMI) [Ratio] 17.2 kg/m2 Dr. Sin Lujan Work Phone: [facility] Work Phone: 09-05-2022 07:40-0400 Body temperature 98 [degF] Dr. Sin Lujan Work Phone: [facility] Work Phone: 09-05-2022 07:40-0400 Body weight 48.[address] Sin Lujan Work Phone: [facility] Work Phone: 09-05-2022 07:40-0400 Diastolic blood pressure 73 mm[Hg] Dr. Sin Lujan Work Phone: [facility] Work Phone: 09-05-2022 07:40-0400 Heart rate 66 /min Dr. Sin Lujan Work Phone: [facility] Work Phone: 09-05-2022 07:40-0400 Respiratory rate 16 /min Dr. Sin Lujan Work Phone: [facility] Work Phone: 09-05-2022 07:40-0400 SaO2% (BldA) [Mass fraction] 99 % Dr. Sin Lujan Work Phone: [facility] Work Phone: 09-05-2022 07:40-0400 Systolic blood pressure 160 mm[Hg] Dr. Sin Lujan Work Phone: [facility] Work Phone: 07-31-2022 12:46-0400 Body height 167.[address] Sin Lujan Work Phone: [facility] Work Phone: 07-31-2022 12:46-0400 Body weight 45.[address] Sin Lujan Work Phone: [facility] Work Phone: 07-31-2022 12:46-0400 Heart rate 79 /min Dr. Sin Lujan Work Phone: [facility] Work Phone: 07-31-2022 12:46-0400 SaO2% (BldA) [Mass fraction] 97 % Dr. Sin Lujan Work Phone: [facility] Work Phone: 07-04-2022 10:35-0400 Body mass index (BMI) [Ratio] 16.5 kg/m2 Dr. Sin Lujan Work Phone: [facility] Work Phone: 07-04-2022 10:35-0400 Body temperature 95.2 [degF] Dr. Sin Lujan Work Phone: [facility] Work Phone: 07-04-2022 10:35-0400 Body weight 46.[address] Sin Lujan Work Phone: [facility] Work Phone: 07-04-2022 10:35-0400 Diastolic blood pressure 76 mm[Hg] Dr. Sin Lujan Work Phone: [facility] Work Phone: 07-04-2022 10:35-0400 Heart rate 68 /min Dr. Sin Lujan Work Phone: [facility] Work Phone: 07-04-2022 10:35-0400 Respiratory rate 18 /min Dr. Sin Lujan Work Phone: [facility] Work Phone: 07-04-2022 10:35-0400 SaO2% (BldA) [Mass fraction] 96 % Dr. Sin Lujan Work Phone: [facility] Work Phone: 07-04-2022 10:35-0400 Systolic blood pressure 130 mm[Hg] Dr. Sin Lujan Work Phone: [facility] Work Phone: 05-28-2022 12:54-0400 Body height 167.64 cm No PCP None YO-Wqsbsvuamp-UO [facility] [place] [address] Work Phone: 05-28-2022 12:54-0400 Body mass index (BMI) [Ratio] 17.24 kg/m2 No PCP None KA-Jzxnqvrdyi-[facility] [place] [address] Work Phone: 05-28-2022 12:54-0400 Body surface area Derived from formula 1.53 m2 No PCP None OY-Yrdjmzfylk-N[facility] [place] [address] Work Phone: 05-28-2022 12:54-0400 Body temperature 97.2 [degF] No PCP None ZG-Awekhxhfhf-C [facility] [place] [address] Work Phone: 05-28-2022 12:54-0400 Body weight 48.44 kg No PCP None LI-Eyiaybqzbn-OX C [place] [address] Work Phone: 05-28-2022 12:54-0400 Diastolic blood pressure 55 mm[Hg] No PCP None TF-Hnsdqmngdd-CKA [place] [address] Work Phone: 05-28-2022 12:54-0400 Heart rate 68 /min No PCP None WE-Fugjdislsv-SY [facility] [place] [address] Work Phone: 05-28-2022 12:54-0400 SaO2% (BldA) [Mass fraction] 98 % No PCP None WM-Dwpngjkgyz-RRK [place] [address] Work Phone: 05-28-2022 12:54-0400 Systolic blood pressure 111 mm[Hg] No PCP None JD-Pwjlwbbiil-O[facility] [place] [address] Work Phone: 05-28-2022 12:54-0400 0 1 No PCP None KZ-Fjtrrdpajt-EV [facility] [place] [address] Work Phone: Comment on above: [facility] 05-13-2022 08:14-0400 Body mass index (BMI) [Ratio] 16.9 kg/m2 Dr. Sin Lujan Work Phone: [facility] Work Phone: 05-13-2022 08:14-0400 Body temperature 97.4 [degF] Dr. Sin Lujan Work Phone: [facility] Work Phone: 05-13-2022 08:14-0400 Body weight 47.[address] Sin Lujan Work Phone: [facility] Work Phone: 05-13-2022 08:14-0400 Diastolic blood pressure 62 mm[Hg] Dr. Sin Lujan Work Phone: [facility] Work Phone: 05-13-2022 08:14-0400 Heart rate 67 /min Dr. Sin Lujan Work Phone: [facility] Work Phone: 05-13-2022 08:14-0400 Respiratory rate 16 /min Dr. Sin Lujan Work Phone: [facility] Work Phone: 05-13-2022 08:14-0400 SaO2% (BldA) [Mass fraction] 99 % Dr. Sin Lujan Work Phone: [facility] Work Phone: 05-13-2022 08:14-0400 Systolic blood pressure 126 mm[Hg] Dr. Sin Lujan Work Phone: [facility] Work Phone: 02-21-2022 13:07-0400 Body height 167.[address] Sin Lujan Work Phone: [facility] Work Phone: 02-21-2022 13:07-0400 Body mass index (BMI) [Ratio] 16.1 kg/m2 Dr. Sin Lujan Work Phone: [facility] Work Phone: 02-21-2022 13:07-0400 Body temperature 99.1 [degF] Dr. Sin Lujan Work Phone: [facility] Work Phone: 02-21-2022 13:07-0400 Body weight 45.[address] Sin Lujan Work Phone: [facility] Work Phone: 02-21-2022 13:07-0400 Diastolic blood pressure 75 mm[Hg] Dr. Sin Lujan Work Phone: [facility] Work Phone: 02-21-2022 13:07-0400 Heart rate 61 /min Dr. Sin Lujan Work Phone: [facility] Work Phone: 02-21-2022 13:07-0400 Respiratory rate 17 /min Dr. Sin Lujan Work Phone: [facility] Work Phone: 02-21-2022 13:07-0400 SaO2% (BldA) [Mass fraction] 95 % Dr. Sin Lujan Work Phone: [facility] Work Phone: 02-21-2022 13:07-0400 Systolic blood pressure 130 mm[Hg] Dr. Sin Lujan Work Phone: [facility] Work Phone: 02-21-2022 13:07-0400 Body height 167.[address] Sin Lujan Work Phone: [facility] Work Phone: 02-21-2022 13:07-0400 Body mass index (BMI) [Ratio] 16.1 kg/m2 Dr. Sin Lujan Work Phone: [facility] Work Phone: 02-21-2022 13:07-0400 Body temperature 99.1 [degF] Dr. Sin Lujan Work Phone: [facility] Work Phone: 02-21-2022 13:07-0400 Body weight 45.[address] Sin Lujan Work Phone: [facility] Work Phone: 02-21-2022 13:07-0400 Diastolic blood pressure 75 mm[Hg] Dr. Sin Lujan Work Phone: [facility] Work Phone: 02-21-2022 13:07-0400 Heart rate 61 /min Dr. Sin Lujan Work Phone: [facility] Work Phone: 02-21-2022 13:07-0400 Respiratory rate 17 /min Dr. Sin Lujan Work Phone: [facility] Work Phone: 02-21-2022 13:07-0400 SaO2% (BldA) [Mass fraction] 95 % Dr. Sin Lujan Work Phone: [facility] Work Phone: 02-21-2022 13:07-0400 Systolic blood pressure 130 mm[Hg] Dr. Sin Lujan Work Phone: [facility] Work Phone: 01-10-2022 08:05-0500 Body mass index (BMI) [Ratio] 17.3 kg/m2 Dr. Sin Lujan Work Phone: [facility] Work Phone: 01-10-2022 08:05-0500 Body temperature 97.3 [degF] Dr. Sin Lujan Work Phone: [facility] Work Phone: 01-10-2022 08:05-0500 Body weight 48.[address] Sin Lujan Work Phone: [facility] Work Phone: 01-10-2022 08:05-0500 Diastolic blood pressure 60 mm[Hg] Dr. Sin Lujan Work Phone: [facility] Work Phone: 01-10-2022 08:05-0500 Heart rate 77 /min Dr. Sin Lujan Work Phone: [facility] Work Phone: 01-10-2022 08:05-0500 Respiratory rate 18 /min Dr. Sin Lujan Work Phone: [facility] Work Phone: 01-10-2022 08:05-0500 SaO2% (BldA) [Mass fraction] 95 % Dr. Sin Lujan Work Phone: [facility] Work Phone: 01-10-2022 08:05-0500 Systolic blood pressure 140 mm[Hg] Dr. Sin Lujan Work Phone: [facility] Work Phone: 01-10-2022 07:05-0500 Body height 167.[address] Sin Lujan Work Phone: [facility] Work Phone: 01-10-2022 07:05-0500 Body mass index (BMI) [Ratio] 17.3 kg/m2 Dr. Sin Lujan Work Phone: [facility] Work Phone: 01-10-2022 07:05-0500 Body temperature 97.3 [degF] Dr. Sin Lujan Work Phone: [facility] Work Phone: 01-10-2022 07:05-0500 Body weight 48.[address] Sin Lujan Work Phone: [facility] Work Phone: 01-10-2022 07:05-0500 Diastolic blood pressure 60 mm[Hg] Dr. Sin Lujan Work Phone: [facility] Work Phone: 01-10-2022 07:05-0500 Heart rate 77 /min Dr. Sin Lujan Work Phone: [facility] Work Phone: 01-10-2022 07:05-0500 Respiratory rate 18 /min Dr. Sin Lujan Work Phone: [facility] Work Phone: 01-10-2022 07:05-0500 SaO2% (BldA) [Mass fraction] 95 % Dr. Sin Lujan Work Phone: [facility] Work Phone: 01-10-2022 07:05-0500 Systolic blood pressure 140 mm[Hg] Dr. Sin Lujan Work Phone: [facility] Work Phone: 03-05-2017 16:53-0400 BMI (Body Mass Index) 16.91 kg/m2 Ana Rosa Bustillo ENVIRONMENTAL SERVICES DIRECTOR [facility] Work Phone: 03-05-2017 16:53-0400 BP Diastolic 68 mm[Hg] Ana Rosa Bustillo ENVIRONMENTAL SERVICES DIRECTOR [facility] Work Phone: 03-05-2017 16:53-0400 BP Systolic 120 mm[Hg] Ana Rosakosta Bustillo ENVIRONMENTAL SERVICES DIRECTOR [facility] Work Phone: 03-05-2017 16:53-0400 Height 167.64 cm Ana Rosa Bustillo LPN [facility] Work Phone: 03-05-2017 16:53-0400 Pulse (Heart Rate) 92 /min Ana Rosa Bustillo ENVIRONMENTAL SERVICES DIRECTOR [facility] Work Phone: 03-05-2017 16:53-0400 Pulse Oximetry 98 % Ana Rosa Bustillo LPN [facility] Work Phone: 03-05-2017 16:53-0400 Respiratory Rate 16 /min AnaR osa Bustillo LPN [facility] Work Phone: 03-05-2017 16:53-0400 Weight 47.54 kg Ana Rosa Bustillo LPN [facility] Work Phone: 02-18-2017 14:22-0400 Body Temperature 97.9 [degF] Ana Rosa Bustillo LPN [facility] Work Phone: 02-18-2017 14:22-0400 BSA (Body Surface Area) 1.53 m2 Ana Rosa Bustillo LPN [facility] Work Phone: 02-18-2017 14:22-0400 Height 167.64 cm Ana Rosa Bustillo LPN [facility] Work Phone: 02-18-2017 14:22-0400 Weight 48.53 kg Ana Rosa Bustillo LPN [facility] Work Phone: Encounters Encounter Date Encounter Type Care Provider Facility Start: 08-17-2025 ambulatory [facility] Facility:[facility] Start: 06-04-2025 Dr. Stacy Fontenot DO -[facility] Work Phone: Start: 06-03-2025 Dr. Stacy Fontenot DO -[facility] Work Phone: Start: 06-02-2025 ambulatory [facility] Facility: [facility] Start: 06-02-2025 End: 06-04-2025 Evaluation and management of inpatient Dr. Juliet Lujan MD Work Phone: -Intensive Care Unit Start: 06-02-2025 End: 06-04-2025 Dr. Stacy Fontenot DO -Intensive Care Unit Work Phone: Start: 06-01-2025 Dr. Favian Sinclair MD -[facility] Start: 06-01-2025 Dr. Stacy Fontenot DO -[facility] Work Phone: Start: 06-01-2025 End: 06-01-2025 ambulatory Favian Sinclair Facility:[facility] Start: 05-31-2025 Dr. Favian Sinclair MD -[facility] Start: 05-31-2025 ambulatory Irais Euceda ty:[facility] Start: 05-31-2025 Dr. Stacy Fontenot [facility] Work Phone: Start: 05-30-2025 Dr. Favian Sinclair MD -[facility] Start: 05-30-2025 Dr. Stacy Fontenot [facility] Work Phone: Start: 05-29-2025 Dr. Khai Bullard [facility] Inpatient [facility]icians Work Phone: Start: 05-29-2025 Dr. Brielle Turner MD -[facility] Start: 05-28-2025 Dr. Brielle Turner MD [facility] Start: 05-28-2025 ambulatory [facility] Facility: [facility] Start: 05-28-2025 End: 06-01-2025 Evaluation and management of inpatient Dr. Juliet Lujan MD Work Phone: -Progressive Care Unit Start: 05-28-2025 End: 06-01-2025 Dr. Favian Nicholas [facility]patient [facility]icians Work Phone: Start: 05-20-2025 End: 05-20-2025 Dr. [facility] Work [facility] Start: 05-20-2025 End: 05-20-2025 Emergency department patient visit Dr. Juliet Lujan MD Work Phone: -Emergency Department Work Phone: Start: 05-18-2025 End: 05-18-2025 Patient encounter procedure DAIRY NUTRITION SPECIALIST Irais Justice -[facility] Work Phone: Start: 05-18-2025 End: 05-18-2025 MARQUITA Justice -[facility] Work Phone: Start: 05-18-2025 End: 05-18-[address] Juliet Lujan MD Work Phone: -[facility] Start: 05-08-2025 End: 05-08-2025 Dr. Justin Parisi DO -Emergency Department Work Phone: Start: 05-08-2025 End: 05-08-2025 Emergency department patient visit Dr. Juliet Lujan MD Work Phone: -Emergency Department Work Phone: Start: 04-11-2025 End: 04-11-[address] Juliet Lujan MD Work Phone: [facility] Work Phone: Start: 04-11-2025 End: 04-11-[address] Christy Fontenot DO -Laboratory Specimen Work Phone: Start: 04-11-2025 End: 04-11-2025 Dr. Christy Fontenot DO -Laboratory Specime n Work Phone: Start: 04-11-2025 End: 04-11-2025 ambulatory Christy Fontenot Facility:[facility] Start: 04-09-2025 End: 04-09-2025 Dr. Juliet Lujan MD Work Phone: -Emergency Department Work Phone: Start: 04-09-2025 End: 04-09-2025 Emergency department patient visit Dr. Juliet Lujan MD Work Phone: [facility] Work Phone: Start: 04-09-2025 End: 04-09-[address] Juliet Lujan MD Work Phone: [facility] Work Phone: Start: 04-09-2025 End: 04-09-[address] Christy Fontenot DO -Laboratory Work Phone: Start: 04-09-2025 End: 04-09-2025 Dr. Christy Fontenot DO -Laboratory Work Phone: Start: 04-09-2025 End: 04-09-2025 ambulatory Christy Fontenot Facility:[facility] Start: 03-22-2025 End: 03-22-2025 Patient encounter procedure Kayleigh BHARDWAJ -[facility] Work Phone: Start: 03-22-2025 End: 03-22-2025 Kayleigh BHARDWAJ [facility] Vascula r Surgery Work Phone: Start: 03-22-2025 End: 03-22-[address] Christy Fontenot DO Work Phone: [facility] Work Phone: Start: 03-10-2025 ambulatory Favianchance Sinclair Facility:[facility] Start: 01-27-2025 End: 01-27-2025 Patient encounter procedure Brenda Medrano DAIRY NUTRITION SPECIALIST-C -[facility] Work Phone: Start: 01-27-2025 End: 01-27-2025 Brenda Medrano DAIRY NUTRITION SPECIALIST-C -[facility] Work Phone: Start: 01-27-2025 End: 01-27-2025 ambulatory Brenda Medrano Facility:[facility] Start: 01-13-2025 Encounter for other [facility]procedural [facility] Start: 01-11-2025 End: 01-11-2025 Patient encounter procedure Kayleigh BHARDWAJ -[facility] Work Phone: Start: 01-11-2025 End: 01-11-2025 Kayleigh Payne [facility] Vascula r Surgery Work Phone: Start: 01-11-2025 End: 01-11-2025 ambulatory Juliet Lujan Facility:[facility] Start: 01-11-2025 End: 01-11-[address] Juliet Lujan MD Work Phone: [facility] Work Phone: Start: 01-11-2025 End: 01-11-2025 Patient encounter procedure Jeanna Davis DAIRY NUTRITION SPECIALIST-C -Cat Scan [facility] Work Phone: Start: 01-11-2025 End: 01-11-2025 Jeanna Davis DAIRY NUTRITION SPECIALIST-C -Cat Scan, [facility] Work Phone: Start: 01-11-2025 End: 01-11-2025 ambulatory Jeanna Davis DAIRY NUTRITION SPECIALIST Facility:[facility] Start: 01-06-2025 ambulatory Favian Sinclair Facility:[facility] Start: 01-06-2025 Dr. He Cat MD -[facility] Work Phone: Start: 01-05-2025 Dr. He Cat MD -[facility] Work Phone: Start: 01-05-2025 Dr. Terrance Alva DO -[facility] -[facility] Start: 01-04-2025 Dr. He Cat MD -[facility] Work Phone: Start: 01-03-2025 End: 01-06-2025 Evaluation and management of inpatient Christy Po Facility:[facility] Start: 01-03-2025 ambulatory Alex Hinojosa [facility] Start: 01-03-2025 End: 01-06-2025 Dr. He Cat MD -Progressive Care U nit Work Phone: Start: 12-30-2024 End: 12-30-2024 Telephone encounter Kidney Txp Coordinators Work Phone: [facility] Comment on above: Referral - Kidney Tx p Start: 12-30-2024 Encounter for other preprocedural examination Kayleigh Payne [facility] Start: 12-29-2024 End: 12-29-2024 Telephone encounter Kidney Txp Coordinators Work Phone: [facility] Comment on above: Referral - Kidney Tx p Start: 12-28-2024 ambulatory Favian Sinclair Facility:[facility] Start: 12-28-2024 Dr. Favian Sinclair MD -[facility] -[facility] Start: 12-28-2024 End: 12-28-2024 Dr. Favian Sinclair MD -Surgical Day Care Start: 12-28-2024 End: 12-28-2024 ambulatory Favian Sinclair Facility:[facility] Start: 12-24-2024 End: 12-24-2024 Telephone encounter Kidney Txp Coordinators Work Phone: [facility] Comment on above: Referral - Kidney Tx p Start: 12-17-2024 ambulatory Juliet Jonesi lity:[facility] Start: 12-17-2024 End: 12-17-2024 Dr. Tee Aguirre MD -[facility] Start: 12-16-2024 End: 12-16-2024 Mynor MEYERC -[facility] Work Phone: Start: 12-16-2024 End: 12-17-2024 ambulatory Kayleigh Payne Facility:[facility] Start: 12-02-2024 End: 12-02-2024 Dr. Favian Sinclair MD -[place] Work Phone: Start: 12-02-2024 End: 12-02-2024 ambulatory Christy Lee Facility:[facility] Start: 11-20-2024 End: 11-20-2024 Dr. Justin Love-Eugenio -Emergency Department Work Phone: Start: 11-20-2024 End: 11-20-2024 [facility] Start: 11-04-2024 End: 11-04-2024 Emergency department patient visit Daleshreyas Sellersnikolay Facility:[facility] Start: 11-04-2024 End: 11-04-2024 ED PHYSICIAN PROVIDER -Emergency Departm ent Work Phone: Start: 11-04-2024 End: 11-04-2024 ambulatory Juliet Lujan Facility:[facility] Start: 11-02-2024 ambulatory Juliet Lujan Faci [facility]ity:[facility] Start: 11-02-2024 End: 11-02-2024 Dr. Favian Sinclair MD -[facility] Start: 11-02-2024 End: 11-02-2024 ambulatory Christy Fontenot Facility:[facility] Start: 10-16-2024 End: 10-16-2024 [facility] Work Phone: Start: 10-16-2024 End: 10-16-2024 ambulatory Jeanna Davis DAIRY NUTRITION SPECIALIST Facility:[facility] Start: 10-07-2024 End: 10-07-2024 Brenda Medrano DAIRY NUTRITION SPECIALIST-C -[facility] Work Phone: Start: 10-07-2024 End: 10-07-2024 ambulatory Juliet Lujan Facility:[facility] Start: 08-31-2024 End: 08-31-2024 ambulatory Tami Alfredo SHORTS SIFTER - OPTOELECTRONICS ENGINEER Work Phone: [facility] Lung Nodule [facility] Start: 08-31-2024 End: 08-31-2024 Patient encounter procedure Tami Alfredo SHORTS SIFTER - OPTOELECTRONICS ENGINEER Work Phone: [facility] Comment on above: Chronic respiratory failure with hypoxia and hypercapnia (HCC) [J96.11, J96.12] (Primary Dx); Centrilobular emphysema (HCC) [J43.2]; Other dysphagia [R13.19]; Hx of bacterial pneumonia [Z87.01] Start: 08-27-2024 End: 08-27-2024 ambulatory Tami Alfredo SHORTS SIFTER - OPTOELECTRONICS ENGINEER Work Phone: [facility] Start: 08-27-2024 End: 08-27-2024 Patient encounter procedure Tami Alfredo SHORTS SIFTER - OPTOELECTRONICS ENGINEER Work Phone: [facility] Comment on above: Chronic respiratory failure with hypoxia and hypercapnia (HCC) [J96.11, J96.12] (Primary Dx); Centrilobular emphysema (HCC) [J43.2]; History of recent pneumonia [Z87.01]; Other dysphagia [R13.19] Start: 08-25-2024 End: 08-25-2024 ambulatory Tami Alfredo SHORTS SIFTER - OPTOELECTRONICS ENGINEER Work Phone: [facility] Start: 08-25-2024 End: 08-25-2024 Patient encounter procedure Tami Alfredo SHORTS SIFTER - OPTOELECTRONICS ENGINEER Work Phone: [facility] Comment on above: Chronic respiratory failure with hypoxia and hypercapnia (HCC) [J96.11, J96.12] (Primary Dx); Centrilobular emphysema (HCC) [J43.2]; Bilateral pleural effusion [J90]; Hx of bacterial pneumonia [Z87.01]; Cigarette nicotine dependence without complication [F17.210] Start: 08-13-2024 End: 08-13-2024 ambulatory ELIZABETH TYLER [facility] Start: 08-12-2024 End: 08-24-2024 Evaluation and management of inpatient Lucina Galvan DO Work Phone: [facility] 6W Start: 08-11-2024 End: 08-11-2024 ambulatory ELIESER SOLIS [facility] Start: 08-11-2024 End: 11-10-2024 Subsequent hospital visit by physician Elieser Solis MD Work Phone: [facility] Comment on above: SDH (subdural hemato ma) (HCC) SDH (subdural hemato ma) (HCC) (Primary Dx) Start: 08-10-2024 End: 08-10-2024 ambulatory MADELINE MONTALVO [facility] Start: 07-28-2024 End: 07-28-2024 ambulatory TORITO KEYSHAWN [facility] Start: 07-27-2024 End: 07-29-2024 ambulatory [facility] Start: 07-26-2024 End: 08-10-2024 Evaluation and management of inpatient Colin Peoples MD Work Phone: [facility] Trauma Neuro Progressive Care Unit PCU 3W Start: 07-24-2024 End: 07-24-2024 ambulatory Lani L White Facility:[facility] Start: 07-23-2024 ambulatory Lani L White Facility :[facility] Start: 07-23-2024 End: 07-26-2024 Evaluation and management of inpatient Lani L Danette Facility:[facility] Start: 07-13-2024 ambulatory Christy Fontenot Facility: [facility] Start: 03-02-2024 End: 03-02-[address] Juliet Lujan Work Phone: [facility] Work Phone: Start: 03-02-2024 End: 03-02-[address] Juliet Lujan Work Phone: [facility]-Cardiovascula r Services Work Phone: Start: 02-05-2024 End: 02-05-[address] Sin Lujan Work Phone: [facility]-Pulmonary Medicine [facility] Work Phone: Start: 02-02-2024 End: 02-02-[address] Sin Lujan Work Phone: [facility] Work Phone: Start: 02-02-2024 End: 02-02-[address] Sin Lujan Work Phone: [facility] Work Phone: Start: 01-15-2024 End: 01-15-[address] Sin Lujan Work Phone: [facility] Work Phone: Start: 01-15-2024 End: 01-15-[address] Sin Lujan Work Phone: [facility] Start: 12-03-2023 End: 12-03-[address] Sin Lujan Work Phone: [facility] Work Phone: Start: 11-18-2023 End: 11-18-[address] Sin Lujan Work Phone: [facility] Work Phone: Start: 11-18-2023 End: 11-18-2023 Patient encounter procedure Dr. Sin Lujan Work Phone: [facility] Work Phone: Start: 10-29-2023 End: 10-29-[address] Sin Lujan Work Phone: [facility] Work Phone: Start: 10-29-2023 End: 10-29-[address] Sin Lujan [facility] Work Phone: Start: 10-29-2023 End: 10-29-[address] [facility] Work Phone: Start: 10-20-2023 End: 10-20-[address] Sin Lujan Work Phone: [facility] Work Phone: Start: 10-20-2023 End: 10-20-[address] Sin Lujan Work Phone: [facility], [facility] Work Phone: Start: 10-13-2023 End: 10-13-[address] Sin Lujan Work Phone: [facility] Work Phone: Start: 10-13-2023 End: 10-13-[address] Sin Lujan [facility] Phone[facility] Start: 10-09-2023 End: 10-09-[address] Sin Lujan Work Phone: [facility] Work Phone: Start: 10-09-2023 End: 10-09-2023 Patient encounter procedure ELLIE Davis NP Work Phone: [facility], Phy Office 3rd Flr Start: 10-06-2023 End: 10-06-2023 ambulatory DAIRY NUTRITION SPECIALIST-Marquis Davis DAIRY NUTRITION SPECIALIST Work Phone: [facility] Work Phone: Start: 10-06-2023 End: 10-06-2023 Patient encounter procedure DAIRY NUTRITION SPECIALIST-Marquis Davis DAIRY NUTRITION SPECIALIST Work Phone: [facility]-Laboratory, y Office 3rd Flr Start: 08-06-2023 End: 08-06-2023 Patient encounter procedure DAIRY NUTRITION SPECIALIST-Marquis Davis DAIRY NUTRITION SPECIALIST Work Phone: [facility], [facility] Work Phone: Start: 07-14-2023 End: 07-14-2023 Patient encounter procedure DAIRY NUTRITION SPECIALIST-Marquis Davis DAIRY NUTRITION SPECIALIST Work Phone: [facility] Work Phone: Start: 06-25-2023 End: 06-25-2023 Patient encounter procedure DAIRY NUTRITION SPECIALISTPaddy Davis DAIRY NUTRITION SPECIALIST Work Phone: [facility] Work Phone: Start: 06-19-2023 End: 06-19-[address] Sin Lujan Work Phone: [facility] Work Phone: Start: 06-19-2023 End: 06-19-[address] Sin Lujan Work Phone: [facility]-Laboratory, y Office 3rd Flr Start: 06-12-2023 Non-patient / Non-visit Dr. Aashish Lujan Work Phone: [facility] Start: 06-12-2023 End: 06-12-[address] Sin Lujan Work Phone: [facility]-Pulmonary Services/Neurology Work Phone: Start: 06-02-2023 End: 06-02-[address] Sin Lujan Work Phone: [facility] Work Phone: Start: 06-02-2023 End: 06-02-[address] Sin Lujan Work Phone: [facility] Work Phone: Start: 05-20-2023 Non-patient / Non-visit Dr. Aashish Lujan Work Phone: [facility] Start: 05-19-2023 End: 05-19-[address] Sin Lujan Work Phone: [facility] Work Phone: Start: 05-19-2023 End: 05-19-[address] Sin Lujan Work Phone: [facility]-Pulmonary Services/Neurology Work Phone: Start: 04-09-2023 End: 04-09-[address] Sin Lujan Work Phone: [facility] Work Phone: Start: 03-17-2023 End: 03-17-[address] Sin Lujan Work Phone: [facility]-Laboratory, Phy Office 3rd Utr Start: 03-06-2023 Non-patient / Non-visit Dr. Aashish Lujan Work Phone: [facility] Work Phone: Start: 02-28-2023 Non-patient / Non-visit Dr. Aashish Lujan Work Phone: [facility] Start: 02-27-2023 Non-patient / Non-visit Dr. Aashish Lujan Work Phone: [facility] Start: 02-27-2023 End: 02-27-[address] Sin Lujan Work Phone: [facility] Work Phone: Start: 02-27-2023 End: 02-27-[address] Sin Lujan Work Phone: [facility]-Cardiovascula r Services Start: 02-26-2023 End: 02-26-[address] Sin Lujan Work Phone: [facility] Work Phone: Start: 02-26-2023 End: 02-26-[address] Sin Lujan Work Phone: [facility]-Laboratory Start: 02-17-2023 End: 02-17-[address] Sin Lujan [facility] Phone[facility] Start: 01-01-2023 End: 01-01-[address] Sin Lujan Work Phone: [facility] Start: 10-11-2022 End: 10-11-[address] Sin Lujan Work Phone: [facility] Work Phone: Start: 10-11-2022 End: 10-11-[address] Sin Lujan [facility] Start: 09-05-2022 End: 09-05-[address] Sin Lujan Work Phone[facility] Start: 08-05-2022 Non-patient / Non-visit Dr. Aashish Lujan Work Phone: [facility] Start: 07-31-2022 End: 07-31-[address] Sin Lujan Work Phone: [facility]-Pulmonary Services/Neurology Start: 07-29-2022 Non-patient / Non-visit Dr. Aashish Lujan Work Phone: [facility] Start: 07-29-2022 End: 07-29-[address] Sin Lujan Work Phone: [facility] Work Phone: Start: 07-29-2022 End: 07-29-[address] Sin Lujan Work Phone: [facility]-Pulmonary Services/Neurology Start: 07-04-2022 End: 07-04-[address] Sin Lujan Work Phone: [facility] Start: 06-09-2022 Chart Update No PCP None [facility] Work Phone: Start: 05-29-2022 Chart Update No PCP None [facility] Work Phone: Start: 05-29-2022 End: 05-29-[address] Sin Lujan Work Phone: [facility] Start: 05-28-2022 Patient encounter procedure No PCP None [id number] [place] [address] Work Phone: Start: 05-13-2022 End: 05-13-[address] Sin Lujan [facility] Phone[facility] Start: 05-02-2022 End: 05-02-[address] Sin Lujan Work Phone: [facility]-Laboratory Start: 02-21-2022 End: 02-21-[address] Sin Lujan Work Phone[facility] Start: 02-18-2022 End: 02-18-[address] Sin Lujan Work Phone: [facility] Start: 02-08-2022 End: 02-08-[address] Sin Lujan Work Phone: [facility]-Laboratory Start: 01-10-2022 End: 01-10-[address] Sin Lujan Work Phone: [facility] Start: 12-24-2021 End: 12-24-[address] Sin Lujan Work Phone: [facility]-Laboratory Start: 12-19-2021 End: 12-19-[address] Sin Lujan Work Phone[facility] Patient encounter status No PCP None [id number] [place] [address] Work Phone: Procedures Date Procedure Procedure Detail Performing Clinician Start: 06-04-2025 Mean corpuscular hem oglobin concentration determination Dr. Juliet Lujan MD Work Phone: Start: 06-04-2025 Platelet mean volume determination Dr. Juliet Lujan MD Work Phone: Start: 06-04-[address] Juliet Lujan MD Work Phone: Start: 06-03-2025 Blood count smear mc rscp w/mnl difrntl wbc count Dr. Juliet Lujan MD Work Phone: Start: 06-03-2025 Nucleated red blood cell count procedure Dr. Juliet Lujan MD Work Phone: Start: 06-03-2025 Serum inorganic phos phate measurement Dr. Juliet Lujan MD Work Phone: Start: 06-02-2025 Carbon dioxide measu rement, partial pressure Dr. Juliet Ljuan MD Work Phone: Start: 06-02-2025 Gases blood o2 satur ation only direct lesly Dr. Juliet Lujan MD Work Phone: Start: 06-02-2025 Measurement of parti al pressure of oxygen in blood Dr. Juliet Lujan MD Work Phone: Start: 06-02-[address] Juliet Lujan MD Work Phone: Start: 06-02-[address] Aashish Lujan MD Work Phone: Start: 06-02-2025 Plain chest X-ray Dr. Marquis Lujan MD Work Phone: Start: 06-02-2025 Venous oxygen satura tion measurement Dr. Juliet Lujan MD Work Phone: Start: 06-02-2025 Blood count smear mc rscp w/mnl difrntl wbc count Dr. Juliet Lujan MD Work Phone: Start: 06-02-[address] Juliet Lujan MD Work Phone: Start: 06-02-2025 Mean corpuscular hem oglobin concentration determination Dr. Juliet Lujan MD Work Phone: Start: 06-02-2025 Nucleated red blood cell count procedure Dr. Juliet Lujan MD Work Phone: Start: 06-02-2025 Platelet mean volume determination Dr. Juliet Lujan MD Work Phone: Start: 06-01-[address] Juliet Lujan MD Work Phone: Start: 06-01-2025 Mean corpuscular hem oglobin concentration determination Dr. Juliet Lujan MD Work Phone: Start: 06-01-2025 Platelet mean volume determination Dr. Juliet Lujan MD Work Phone: Start: 05-31-2025 Blood count smear mc rscp w/mnl difrntl wbc count Dr. Juliet Lujan MD Work Phone: Start: 05-31-2025 Nucleated red blood cell count procedure Dr. Juliet Lujan MD Work Phone: Start: 05-31-2025 Serum inorganic phos phate measurement Dr. Juliet Lujan MD Work Phone: Start: 05-30-2025 Urine microscopy: red cells Dr. Juliet Lujan MD Work Phone: Start: 05-30-2025 Urnls dip stick/tabl et reagent auto microscopy Dr. Juliet Lujan MD Work Phone: Start: 05-30-2025 Carbon dioxide measu rement, partial pressure Dr. Juliet Lujan MD Work Phone: Start: 05-30-2025 Gases blood o2 satur ation only direct lesly Dr. Juliet Lujan MD Work Phone: Start: 05-30-2025 Measurement of parti al pressure of oxygen in blood Dr. Juliet Lujan MD Work Phone: Start: 05-30-[address] Juliet Lujan MD Work Phone: Start: 05-30-2025 Plain chest X-ray Dr. Marquis Lujan MD Work Phone: Start: 05-30-[address] Juliet Lujan MD Work Phone: Start: 05-30-2025 Sars-cov-2 Dr. Reynaldo Lujan MD Work Phone: Start: 05-30-[address] Juliet Lujan MD Work Phone: Start: 05-27-[address] Juliet Lujan MD Work Phone: Start: 05-27-2025 Plain chest X-ray Dr. Marquis Lujan MD Work Phone: Start: 05-27-2025 Blood count smear mc rscp w/mnl difrntl wbc count Dr. Juliet Lujan MD Work Phone: Start: 05-27-2025 Mean corpuscular hem oglobin concentration determination Dr. Juliet Lujan MD Work Phone: Start: 05-27-2025 Nucleated red blood cell count procedure Dr. Juliet Lujan MD Work Phone: Start: 05-27-2025 Platelet mean volume determination Dr. Juliet Lujan MD Work Phone: Start: 05-20-[address] Juliet Lujan MD Work Phone: Start: 05-08-2025 Computed tomography of abdomen and pelvis with intravenous contrast Dr. Juliet Lujan MD Work Phone: Start: 05-08-[address] Juliet Lujan MD Work Phone: Start: 05-08-2025 Venous oxygen satura tion measurement Dr. Juliet Lujan MD Work Phone: Start: 05-08-2025 X-ray of chest, PA a nd lateral views Dr. Juliet Lujan MD Work Phone: Start: 05-08-2025 Urine microscopy: red cells Dr. Juliet Lujan MD Work Phone: Start: 05-08-2025 Urnls dip stick/tabl et reagent auto microscopy Dr. Juliet Lujan MD Work Phone: Start: 05-08-2025 Blood count smear mc rscp w/mnl difrntl wbc count Dr. Juliet Lujan MD Work Phone: Start: 05-08-[address] Juliet Lujan MD Work Phone: Start: 05-08-2025 Mean corpuscular hem oglobin concentration determination Dr. Juliet Lujan MD Work Phone: Start: 05-08-2025 Nucleated red blood cell count procedure Dr. Juliet Lujan MD Work Phone: Start: 05-08-2025 Platelet mean volume determination Dr. Juliet Lujan MD Work Phone: Start: 05-08-[address] se measurement Dr. Juliet Lujan MD Work Phone: Start: 01-11-2025 CT of chest without contrast Dr. Juliet Lujan MD Work Phone: Start: 01-06-2025 Blood count smear mc rscp w/mnl difrntl wbc count Dr. Christy Fontenot DO Work Phone: Start: 01-06-[address] Christy Fontenot DO Work Phone: Start: 01-06-2025 Mean corpuscular hem oglobin concentration determination Dr. Christy Fontenot DO Work Phone: Start: 01-06-2025 Nucleated red blood cell count procedure Dr. Christy Fontenot DO Work Phone: Start: 01-06-2025 Platelet mean volume determination Dr. Christy Fontenot DO Work Phone: Start: 01-05-[address] Juliet Lujan MD Work Phone: Start: 01-05-2025 Carbon dioxide measu rement, partial pressure Dr. Christy Fontenot DO Work Phone: Start: 01-05-2025 Gases blood o2 satur ation only direct lesly Dr. Christy Fontenot DO Work Phone: Start: 01-05-2025 Measurement of parti al pressure of oxygen in blood Dr. Christy Fontenot DO Work Phone: Start: 01-05-[address] Christy Fontenot DO Work Phone: Start: 01-05-2025 Serum inorganic phos phate measurement Dr. Christy Fontenot DO Work Phone: Start: 01-04-2025 Bacterial nucleic ac id assay Dr. Juliet Lujan MD Work Phone: Start: 01-04-2025 Dr. Reynaldo Lujan MD Work Phone: Start: 01-03-2025 X-ray of chest, PA a nd lateral views Dr. Juliet Lujan MD Work Phone: Start: 12-25-2024 Anion gap measurement Hasmukh Fontenot DO Work Phone: Start: 12-25-2024 BUN/Creatinine ratio Dr Uriel Fontenot DO Work Phone: Start: 12-25-2024 Mean corpuscular hem oglobin concentration determination Dr. Christy Fontenot DO Work Phone: Start: 12-25-2024 Measurement of renal function Dr. Christy Fontenot DO Work Phone: Start: 12-25-2024 Platelet mean volume determination Dr. Christy Fontenot DO Work Phone: Start: 11-20-2024 Plain chest X-ray Dr. Marquis Lujan MD Work Phone: Start: 10-16-2024 CT of chest without contrast Dr. Juliet Lujan MD Work Phone: Start: 08-24-2024 Glucose [...] ination ph pco2 po2 co2 hco3 Janell Safady MD Work Phone: Start: 08-21-2024 Glucose quantitative [...] 08-17-2024 Glucose quantitative blood xcpt reagent strip Kmear Adames DO Work Phone: Start: 08-17-2024 Glucose [...] 08-13-2024 TRANSFUSE RED BLOOD CELLS Ana Rosa Carlin DO Work Phone: Start: 08-13-2024 End: 08-13-2024 Assay of haptoglobin quantitative Ana Rosa Carlin DO Work Phone: Start: 08-13-2024 End: 08-13-2024 Basic metabolic panel calcium total Janell Booker MD Work Phone: Start: 08-13-2024 Manual Differential panel - Blood Jimmy Bradfordjaylentim DO Work Phone: Start: 08-13-2024 EEG CONTINUOUS [...] 08-12-2024 End: 08-12-2024 TRANSFUSE RED BLOOD CELLS pAril Soto MD Start: 08-12-2024 Antibody screen REYNLADO PEOPLES Comment on above: Performed By: #### L [id number] ####Textile Engineer: MARY SOTELO ([id number])[facility] ([facility])[address] [place] [address] Start: 08-12-2024 Blood typing serologic abo April Soto MD Start: 08-12-2024 End: 08-12-2024 Cyanocobalamin vitamin b-12 May krause Jovannial DO Work Phone: Start: 08-12-2024 Assay of troponin quantitative Sapphire Bianchi YANDELMarquis Work Phone: Start: 08-12-2024 Blood gases any comb ination ph pco2 po2 co2 hco3 Ana Rosakosta Carlin DO Work Phone: Start: 08-12-2024 Bacteria identified in Blood by Culture Sapphirekanwal HUMPHRIESMarquis Work Phone: Start: 08-12-2024 Blood gases, venous measurement Sapphirekanwal HUMPHRIESMarquis Work Phone: Start: 08-12-2024 Comprehensive metabo lic panel Sapphirefrank HUMPHRIESMarquis Work Phone: Start: 08-12-2024 HC CUL TYP ID BLD PT HGN 6+ TRGT Sapphirekanwal HUMPHRIESMarquis Work Phone: Start: 08-12-2024 Radiologic exam ches t single view Sapphire Bianchi YANDELPlayerize Work Phone: Start: 08-12-2024 Ecg routine ecg w/le ast 12 lds i&r only Sapphire Bianchi YANDELMarquis Work Phone: Start: 08-11-2024 Ct head/brain w/o co ntrast material Elieser Solis MD Work Phone: Start: 08-10-2024 Glucose quantitative blood xcpt reagent strip Fly Mills DO Work Phone: Start: 08-10-2024 Glucose quantitative blood xcpt reagent strip Fly Mills DO Work Phone: Start: 08-10-2024 End: 08-10-2024 Glucose quantitative blood xcpt reagent strip Fly Mills DO Work Phone: Start: 08-10-2024 End: 08-10-2024 Glucose quantitative blood xcpt reagent strip Fly Mills DO Work Phone: Start: 08-10-2024 Basic metabolic pane l calcium total May Wang DO Work Phone: Start: 08-10-2024 Complement antigen e ach component Saroj Gaffney MD Work Phone: Start: 08-09-2024 Glucose quantitative blood xcpt reagent strip Fly Mills DO Work Phone: Start: 08-09-2024 End: 08-09-2024 [...] Glucose quantitative blood xcpt reagent strip Fly Mills DO Work Phone: Start: 08-09-2024 End: 08-09-2024 [...] Radiologic exam ches t single view Khai Espana DO Work Phone: Start: 08-08-2024 Glucose quantitative blood xcpt reagent strip Ino Conte MD Work Phone: Start: 08-08-2024 Glucose quantitative blood xcpt reagent strip Ino Conte MD Work Phone: Start: 08-08-2024 Renal function panel Cosme prietomarlo Smiley Alma Deliashamirmarium DO Work Phone: Start: 08-07-2024 Glucose quantitative [...] Basic metabolic pane l calcium total May Iqballinetteal DO Work Phone: Start: 08-06-2024 Glucose quantitative [...] on above: Performed By: #### L [id number] ####Textile Engineer: MARY SOTELO ([id number])[facility] ([address] Start: 08-06-2024 Blood typing serologic abo [...] exam ches t single view Ana Rosakosta Carlin DO Work Phone: Start: 08-05-2024 Basic [...] Glucose quantitative blood xcpt reagent strip Fly Mills DO Work Phone: Start: 08-04-2024 Basic metabolic pane l calcium total May Sherice Wang DO Work Phone: Start: 08-03-2024 Glucose quantitative blood xcpt reagent strip Fly Mills DO Work Phone: Start: 08-03-2024 Glucose quantitative blood xcpt reagent strip Fly Holli DO Work Phone: Start: 08-03-2024 Glucose quantitative blood xcpt reagent strip Fly Mills DO Work Phone: Start: 08-03-2024 Glucose quantitative [...] 08-01-2024 End: 08-01-2024 Renal function panel Joycelyn Wright Work Phone: Start: 07-31-2024 Glucose quantitative blood xcpt reagent strip Kena Villagranrubia DO Work Phone: Start: 07-31-2024 End: 07-31-2024 [...] on above: Performed By: #### L [id number] ####Textile Engineer: MARY SOTELO ([id number])[facility] ([address] Start: 07-31-2024 ABO and Rh group [Ty pe] in Blood by Confirmatory method Joycelyn Diane DO Work Phone: Start: 07-31-2024 Blood typing serologic abo Joycelyn Diane DO Work Phone: Start: 07-31-2024 End: 07-31-2024 Renal function panel Joycelyn Wright Work Phone: Start: 07-31-2024 CHEST PHYSIOTHERAPY Jaden Diane DO Work Phone: Start: 07-31-2024 Blood gases any comb ination ph pco2 po2 co2 hco3 Kena Heath DO Work Phone: Start: 07-31-2024 End: 07-31-2024 Renal function panel Joycelyn Wright Work Phone: Start: 07-31-2024 End: 07-31-2024 Renal function panel Joycelynmelva Noe O Work Phone: Start: 07-30-2024 Renal function panel Traylor susana Diane DO Work Phone: Start: 07-30-2024 CHEST PHYSIOTHERAPY Stalney tawana Diane DO Work Phone: Start: 07-30-2024 EXTUBATION Joycelyn leigh DO Work Phone: Start: 07-30-2024 Renal function panel Traylor susana Dinae DO Work Phone: Start: 07-30-2024 Blood gases any comb ination ph pco2 po2 co2 hco3 Kena Heath DO Work Phone: Start: 07-30-2024 End: 07-30-2024 Renal function panel Joycelyntawana Noe O Work Phone: Start: 07-30-2024 Radiologic exam ches t single view Joycelyn Guerra Diane DO Work Phone: Start: 07-30-2024 Blood gases any comb ination ph pco2 po2 co2 hco3 Yarsanism Parkinson DO Start: 07-30-2024 Renal function panel Traylor susana Diane DO Work Phone: Start: 07-29-2024 End: [...] Kena Masseybryan DO Work Phone: Start: 07-28-2024 Assay of phosphorus inorganic Joycelyn Diane DO Work Phone: Start: 07-28-2024 Glucose quantitative blood xcpt reagent strip Kena Heath DO Work Phone: Start: 07-28-2024 Radiologic exam ches t single view Joycelyn Diane DO Work Phone: Start: 07-28-2024 Basic [...] Start: 07-27-2024 End: 07-27-2024 Comprehensive metabolic panel [facility] Merrill DO Work Phone: Start: 07-27-2024 Manual Differential panel - Blood Kena Heath DO Work Phone: Start: 07-27-2024 End: 07-27-2024 Smr prim src gram/giemsa stain bct fungi/cell [facility] hospitalMario Alberto Merrill DO Work Phone: Start: 07-27-2024 End: 07-27-2024 [...] comb ination ph pco2 po2 co2 hco3 SaGuerita Momin DO Work Phone: Start: 07-26-2024 Assay of osmolality blood SaGuerita Momin DO Work Phone: Start: 07-26-2024 Artl cathj/cannulj mntr/transfusion spx prq Calixto Trevino MD Work Phone: Start: 07-26-2024 Creatinine other source SaGuerita Momin DO Work Phone: Start: 07-26-2024 Iaadiadoo not otherw ise specified SaGuerita Momin DO Work Phone: Start: 07-26-2024 Comprehensive [...] Ct head/brain w/o co ntrast material Clara Jeffress DO Work Phone: Start: 07-26-2024 Ecg routine ecg w/le ast 12 lds trcg only w/o i&r Clara Jeffress DO Work Phone: Start: 07-26-2024 Thyrotropin [Units/v olume] in Serum or Plasma Elieser Solis MD Work Phone: Start: 07-24-2024 Antibody screen Irais Justice Comment on above: Performed By: #### B RENÉ MCDONNELL, [id number] ####[facility] [id number] Danitza [place], [place], [id number] Start: 02-02-2024 CT of chest without contrast Dr. Sin Lujan Work Phone: Start: 10-29-2023 Investigation of transfusion reaction Dr. Sin Lujan Work Phone: Start: 10-29-2023 [address] micro[address] l culture Dr. Sin Lujan Work Phone: Start: 10-20-[address] Aashish Lujan Work Phone: Start: 10-13-[address] Suraj Lujan Work Phone: Start: 08-06-2023 CT of chest without contrast DAIRY NUTRITION SPECIALISTEliaC Jeanna Davis DAIRY NUTRITION SPECIALIST Work Phone: Start: 06-02-2023 CT of chest [...] [employer] 02/04/2018 Start: 04-02-2012 Colonoscopy Kidney Channel Lip Stiffener Insoles rdinators Work Phone: Start: 12-26-2009 Lipid 1996 panel - S dottie or Plasma Kidney Coordinators Work Phone: Appendectomy No PCP None Hysterectomy No PCP None Plan of Treatment Date Care Activity Detail Author Start: 2034 RSV Vaccine (1 - 1-dose 75+ series) RSV Vaccine (1 - 1-dose 75+ series) [facility] Start: 08-12-2029 Cyanocobalamin vitamin b-12 Vitamin B-12 [facility] Start: 08-12-2029 [facility] Start: 09-04-2027 Diabetes Screening Diabetes Screening [facility] Start: 07-08-2027 DTaP/Tdap/Td Vaccines (3 - Td or Tdap) DTaP/Tdap/Td Vaccines (3 - Td or Tdap) [facility] Start: 07-08-2027 Urine microalbumin profile DTaP,Tdap,Td Vaccine (3 - Td or Tdap) [facility] Start: 07-08-2027 [facility] Start: 01-31-2026 Pneumococcal Vaccine: 50+ Years (3 of 3 - PCV20 or PCV21) Pneumococcal Vaccine: 50+ Years (3 of 3 - PCV20 or PCV21) [facility] Start: 09-20-2025 Pneumococcal Vaccine: Pediatrics (0 to 5 Years) and At-Risk Patients (6 to 64 Years) (3 of 3 - PPSV23 or PCV20) Pneumococcal Vaccine: Pediatrics (0 to 5 Years) and At-Risk Patients (6 to 64 Years) (3 of 3 - PPSV23 or PCV20) [facility] Start: 09-20-2025 [facility] Start: 09-06-2025 Diabetes: Estimated Glomerular Filtration Rate for Kidney Health Diabetes: Estimated Glomerular Filtration Rate for Kidney Health [facility] Start: 08-30-2025 Diabetes: Estimated Glomerular Filtration Rate for Kidney Health Diabetes: Estimated Glomerular Filtration Rate for Kidney Health [facility] Start: 08-25-2025 Diabetes: Estimated Glomerular Filtration Rate for Kidney Health Diabetes: Estimated Glomerular Filtration Rate for Kidney Health [facility] Start: 08-24-2025 [facility] Start: 08-11-2025 Diabetes: Estimated Glomerular Filtration Rate for [facility] Diabetes: Estimated Glomerular Filtration Rate for Kidney Health [facility] Start: 08-10-2025 [facility] Start: 07-26-2025 Hemoglobin A1c measurement [facility] Start: 07-26-2025 Thyroid stimulating hormone measurement [facility] Start: 06-04-2025 Patient discharge [facility] Start: 06-03-2025 Care planning and problem solving actions [facility] Start: 06-03-2025 Referral to service [facility] Start: 06-03-2025 Referral to occupational therapist [facility] Start: 06-03-2025 End: 06-03-2025 [facility] Start: 06-03-2025 Hemodialysis care [facility] Start: 06-03-2025 End: 06-03-2025 Serum inorganic phosphate measurement [facility] Start: 06-02-2025 End: 06-02-2025 Serum inorganic phosphate measurement [facility] Start: 06-02-2025 Blood culture [facility] Start: 06-02-2025 Hemodialysis care [facility] Start: 06-02-2025 Following clinical pathway protocol [facility] Start: 06-02-2025 Referral to child adolescent care [facility] Start: 06-02-2025 Assessment of risk of venous thromboembolism [facility] Start: 06-02-2025 Care regimes management [facility] Start: 06-02-2025 Catheterization of vein [facility] Start: 06-02-2025 Continuous pulse oximetry [facility] Start: 06-02-2025 Inhalation therapy procedure [facility] Start: 06-02-2025 Insertion of catheter into peripheral vein [facility] Start: 06-02-2025 Lab findings surveillance [facility] Start: 06-02-2025 Measuring intake and output [facility] Start: 06-02-2025 Nil by mouth [facility] Start: 06-02-2025 Notification of physician [facility] Start: 06-02-2025 Oxygen therapy [facility] Start: 06-02-2025 Patient referral to dietitian [facility] Start: 06-02-2025 Providing care according to standard [facility] Start: 06-02-2025 Referral to occupational therapist [facility] Start: 06-02-2025 Referral to service [facility] Start: 06-02-2025 Vital signs measurements [facility] Start: 06-02-2025 End: 06-02-2025 [facility] Start: 06-02-2025 Verification routine [facility] Start: 06-02-2025 Admission procedure [facility] Start: 06-02-2025 End: 06-02-2025 [facility] Start: 06-02-2025 Dual pressure spontaneous ventilation support [facility] Start: 06-02-2025 Patient referral to dietitian [facility] Start: 06-01-2025 Patient discharge [facility] Start: 06-01-2025 End: 06-01-2025 [facility] Start: 06-01-2025 Hemodialysis care [facility] Start: 06-01-2025 Ambulation without limitation [facility] Start: 06-01-2025 Dietary regime [facility] Start: 06-01-2025 Patient education [facility] Start: 06-01-2025 Cardiac monitoring [facility] Start: 06-01-2025 Notification of physician [facility] Start: 06-01-2025 Oxygen therapy [facility] Start: 06-01-2025 Pulse taking [facility] Start: 05-31-2025 Catheterization of vein [facility] Start: 05-31-2025 Notification of physician [facility] Start: 05-31-2025 End: 05-31-2025 [facility] Start: 05-30-2025 [facility] Start: 05-30-2025 Blood culture [facility] Start: 05-30-2025 End: 05-30-2025 [facility] Start: 05-30-2025 Hemodialysis care [facility] Start: 05-29-2025 [facility] Start: 05-29-2025 [facility] Start: 05-28-2025 End: 05-28-2025 [facility] Start: 05-28-2025 Care regimes management [facility] Start: 05-28-2025 Notification of physician [facility] Start: 05-28-2025 Referral to vascular surgeon [facility] Start: 05-28-2025 Referral to general surgeon [facility] Start: 05-28-2025 Care of hemodialysis equipment [facility] Start: 05-28-2025 Hemodialysis care [facility] Start: 05-28-2025 End: 05-28-2025 [facility] Start: 05-28-2025 Following clinical pathway protocol [facility] Start: 05-28-2025 Ambulation without limitation [facility] Start: 05-28-2025 Assessment of risk of venous thromboembolism [facility] Start: 05-28-2025 Care regimes management [facility] Start: 05-28-2025 Insertion of catheter into peripheral vein [facility] Start: 05-28-2025 Measuring intake and output [facility] Start: 05-28-2025 Notification of physician [facility] Start: 05-28-2025 Oxygen therapy [facility] Start: 05-28-2025 Providing care according to standard [facility] Start: 05-28-2025 Referral to child adolescent care [facility] Start: 05-28-2025 End: 05-28-2025 [facility] Start: 05-28-2025 Verification routine [facility] Start: 05-28-2025 Hospital admission, emergency, from emergency room, medical nature [facility] Start: 05-28-2025 Admission procedure [facility] Start: 05-28-2025 Inhalation therapy procedure [facility] Start: 05-28-2025 Patient referral to dietitian [facility] Start: 05-27-2025 End: 05-27-2025 [facility] Start: 05-20-2025 [facility] Start: 05-08-2025 [facility] Start: 04-09-2025 [facility] Start: 01-06-2025 Patient discharge [facility] Start: 01-06-2025 Referral to occupational therapist [facility] Start: 01-06-2025 Referral to service [facility] Start: 01-05-2025 [facility] Start: 01-05-2025 Care of hemodialysis equipment [facility] Start: 01-05-2025 Hemodialysis care [facility] Start: 01-05-2025 [facility] Start: 01-05-2025 [facility] Start: 01-04-2025 End: 01-04-2025 [facility] Start: 01-04-2025 Care regimes management [facility] Start: 01-04-2025 Notification of physician [facility] Start: 01-04-2025 Continuous pulse oximetry [facility] Start: 01-04-2025 Care of hemodialysis equipment [facility] Start: 01-04-2025 Hemodialysis care [facility] Start: 01-04-2025 [facility] Start: 01-04-2025 Application of intermittent pneumatic compression device [facility] Start: 01-04-2025 End: 01-04-2025 [facility] Start: 01-04-2025 Notification of physician [facility] Start: 01-04-2025 Consultation for treatment [facility] Start: 01-04-2025 Following clinical pathway protocol [facility] Start: 01-04-2025 Ambulation without limitation [facility] Start: 01-04-2025 Assessment of risk of venous thromboembolism [facility] Start: 01-04-2025 Inhalation therapy procedure [facility] Start: 01-04-2025 Insertion of catheter into peripheral vein [facility] Start: 01-04-2025 Measuring intake and output [facility] Start: 01-04-2025 Oxygen therapy [facility] Start: 01-04-2025 Providing care according to standard [facility] Start: 01-04-2025 Referral to child adolescent care [facility] Start: 01-04-2025 [facility] Start: 01-04-2025 Care regimes management [facility] Start: 01-04-2025 Dual pressure spontaneous ventilation support [facility] Start: 01-04-2025 Patient referral to dietitian [facility] Start: 01-03-2025 Admission procedure [facility] Start: 12-28-2024 Anesthesia vascular shunt/shunt revision [facility] Start: 12-28-2024 Arteriovenous anastomosis open direct [facility] Start: 12-28-2024 Patient discharge [facility] Start: 2024 Advance Directive Discussion Advance Directive Discussion [facility] Start: 2024 Screening for osteoporosis Bone Density Screening [facility] Start: 11-20-2024 [facility] Start: 11-04-2024 [facility] Start: 08-13-2024 End: 08-13-2024 ambulatory [facility] Start: 08-13-2024 End: 08-13-2024 Patient encounter procedure 08/13/2024 11:15 AM EDT Office Visit [facility] [place] [address] [place] [address] Romero Wright MD [address] [place] [address] [facility] Start: 08-10-2024 End: 07-27-2025 CT Head WO contrast [facility] Work Phone: Start: 07-04-2024 Covid-19 Vaccine ( season) Covid-19 Vaccine ( season) [facility] Start: 07-04-2024 COVID-19 Vaccine ( season) COVID-19 Vaccine ( season) [facility] Start: 07-04-2024 COVID-19 Vaccine ( season) COVID-19 Vaccine ( season) [facility] Start: 07-04-2024 Influenza vaccination Influenza Vaccine (#1) [facility] Start: 07-04-2024 [facility] Start: 10-13-2023 [facility] Start: 10-13-2023 Bacteria identified in Urine by Culture [facility] Start: 10-23-2022 Shingrix Vaccine (2 of 2) Shingrix Vaccine (2 of 2) [facility] Start: 10-23-2022 Zoster Vaccines (2 of 2) Zoster Vaccines (2 of 2) [facility] Start: 10-23-2022 [facility] Start: 07-04-2022 Patient referral [facility] Work Phone: Start: 04-02-2022 Screening for malignant neoplasm of colon [facility] Start: 2019 RSV Immunization aged 60 or older (1 - 1-dose 60+ series) RSV Immunization aged 60 or older (1 - 1-dose 60+ series) [facility] Start: 2019 RSV Immunization for Adults (1 - Risk 60-74 years 1-dose series) RSV Immunization for Adults (1 - Risk 60-74 years 1-dose series) [facility] Start: 2019 [facility] Start: 03-05-2017 End: 03-06-2017 *CMP Complete Metabolic Panel *CMP Complete Metabolic Panel [facility] Work Phone: Start: 03-05-2017 End: 03-06-2017 *Microalbumin, Creatine Ratio, rand urine *Microalbumin, Creatine Ratio, rand urine [facility] Work Phone: Start: 03-05-2017 End: 03-06-2017 HbA1c *HgA1C [facility] Work Phone: Start: 03-05-2017 End: 03-06-2017 Lipid panel [AGGREGATE] *Lipid Profile [facility] Work Phone: Start: 02-18-2017 End: 02-23-2017 *CMP Complete Metabolic Panel *CMP Complete Metabolic Panel [facility] Work Phone: Start: 02-18-2017 End: 02-23-2017 *Microalbumin, Creatine Ratio, rand urine *Microalbumin, Creatine Ratio, rand urine [facility] Work Phone: Start: 02-18-2017 End: 02-23-2017 Lipid panel [AGGREGATE] *Lipid Profile [facility] Work Phone: Start: 12-26-2014 Lipid panel Lipid Screening [facility] Start: 01-21-2013 End: 01-21-2013 *BMP *BMP [facility] Work Phone: Start: 01-21-2013 End: 01-21-2013 *CBC with Differential *CBC with Differential [facility] Work Phone: Start: 01-21-2013 End: 01-21-2013 *CDIF - Clostridium Diff. Toxin Stool *CDIF - Clostridium Diff. Toxin Stool [facility] Work Phone: Start: 01-21-2013 End: 01-21-2013 Erythrocyte sedimentation rate *Sedimentation Rate (ESR) [facility] Work Phone: Start: 01-21-2013 End: 01-21-2013 Helicobacter pylori IgG Ab [Units/volume] in Serum *Helicobacter pylori [facility] Work Phone: Start: 01-21-2013 End: 01-21-2013 PT-TMJ PT-TMJ Physical Therapy [facility], [address] [place] [address], [place], [address] [facility] Work Phone: Start: 12-27-2012 Diabetes Screening Diabetes Screening [facility] Start: 12-04-2012 Screening for malignant neoplasm of breast Mammogram Screening [facility] Start: 2009 Pneumococcal Vaccine: 50+ (1 of 1 - PCV) Pneumococcal Vaccine: 50+ (1 of 1 - PCV) [facility] Start: 2009 Shingrix Vaccine (1 of 2) Shingrix Vaccine (1 of 2) [facility] Start: 04-30-2005 Urine microalbumin profile DTaP,Tdap,Td Vaccine (2 - Tdap) [facility] Start: 2004 Screening for malignant neoplasm of colon [facility] Start: 1999 Screening for malignant neoplasm of breast [facility] Start: 1989 Screening for malignant neoplasm of cervix [facility] Start: 1980 Screening for malignant neoplasm of cervix [facility] Start: 1978 Hepatitis A Vaccines (1 of 2 - Risk 2-dose series) Hepatitis A Vaccines (1 of 2 - Risk 2-dose series) [facility] Start: 1977 Anxiety Screening Anxiety Screening [facility] Start: 1977 Depression Screening Depression Screening [facility] Start: 1977 Diabetes: Urine Albumin-Creatinine Ratio for Kidney Health Diabetes: Urine Albumin-Creatinine Ratio for Kidney Health [facility] Start: 1977 Hepatitis C screening Hepatitis C Screening [facility] Start: 1977 HIV screening HIV Screening [facility] Start: 1977 [facility] Start: 1971 Depression Monitoring Depression Monitoring [facility] Start: 1971 [facility] Start: 1969 Diabetic foot examination [facility] Start: 1969 Glaucoma screening [facility] Start: 1969 Preventive dental service [facility] Start: 1960 MMR Vaccines (1 of 1 - Standard series) MMR Vaccines (1 of 1 - Standard series) [facility] Start: 1960 [facility] Start: 1959 Annual wellness visit [facility] Start: 1959 Cyanocobalamin vitamin b-12 Vitamin B-12 [facility] Start: 1959 Diabetes: Celiac Disease Screening Diabetes: Celiac Disease Screening [facility] Start: 1959 Lipid panel [facility] Start: 1959 Screening for malignant neoplasm of colon [facility] Start: 1959 [facility] Alanine aminotransfe rase [Enzymatic activity/volume] in Serum or Plasma [facility] Albumin [Mass/volume ] in Serum or Plasma [facility] Alkaline phosphatase [Enzymatic activity/volume] in Serum or Plasma [facility] Anion gap in Serum o r Plasma [facility] Anion gap in Serum o r Plasma [facility] End: 08-09-2024 Bacteria identified in Urine by Culture [facility] [employer] Work Phone: Bilirubin, total measurement [facility] End: 08-20-2024 Blood gases, arterial measurement [facility] End: 08-20-2024 Blood gases, venous measurement [facility] [employer] Work Phone: BUN/Creatinine ratio [facility] BUN/Creatinine ratio [facility] Calcium [Mass/volume ] in Serum or Plasma [facility] Calcium [Mass/volume ] in Serum or Plasma [facility] Carbon dioxide, tota l [Moles/volume] in Central venous blood [facility] Carbon dioxide, tota l [Moles/volume] in Central venous blood [facility] Creatinine [Mass/vol ume] in Serum or Plasma [facility] Creatinine [Mass/vol ume] in Serum or Plasma [facility] CT Chest [facility] CT Chest W contrast IV [facility] CT Chest WO contrast [facility] End: 08-05-2024 ECG 12 lead [facility] [employer] Work Phone: Erythrocyte mean corpuscular volume determination [facility] Exercise tolerance test [facility] Glucose [Mass/volume ] in Serum or Plasma [facility] Glucose [Mass/volume ] in Serum or Plasma [facility] Hematocrit [Volume Fraction] of Blood [facility] Hemoglobin [Mass/vol ume] in Blood [facility] Leukocytes [#/volume ] in Blood [facility] Lipid 1995 panel - S dottie or Plasma [facility] Lipid 1996 panel - S dottie or Plasma [facility] Magnesium measurement [facility] Magnesium measurement [facility] Mean corpuscular hemoglobin concentration determination [facility] Mean corpuscular hemoglobin determination [facility] Measurement of renal function [facility] Measurement of renal function [facility] Measurement of respi ratory function [facility] Neutrophil count [facility] Neutrophil percent differential count [facility] Patient Education [facility] Work Phone: Patient referral [facility] Work Phone: Platelets [#/volume] in Blood [facility] Positron emission tomography with computed tomography [facility] Potassium measurement [facility] Potassium measurement [facility] Red blood cell count [facility] Red cell distributio n width determination [facility] Serum chloride measurement [facility] Serum chloride measurement [facility] Sodium measurement [facility] Sodium measurement [facility] Total protein measurement [facility] Urea nitrogen [Mass/volume] in Serum or Plasma [facility] Urea nitrogen [Mass/volume] in Serum or Plasma [facility] Vitamin D, 25-hydrox y measurement [facility] Immunizations Immunization Date Immunization Notes Care Provider [facility] 10-28-2024 Pneumococcal Vaccine PCV20 (Prevnar 20) Dr. Juliet Lujan MD Work Phone: [facility] 10-28-[address] Juliet Lujan MD Work Phone: [facility] 09-27-2024 Pfizer Covid-19 (Comirnaty) Dr. Juliet Lujan MD Work Phone: [facility] 07-24-2024 Influenza, seasonal, injectable, preservative free; Translations: [Influenza, Split Virus, Trivalent, PF] Tami Alfredo [employer] Work Phone: [facility] 07-24-2024 Lucina Galvan DO Work Phone: [facility] 08-28-2022 influenza, injectabl e, quadrivalent, contains preservative [facility] DO Work Phone: [facility] 08-28-2022 influenza, injectabl e, quadrivalent, preservative free Dr. Juliet Lujan MD Work Phone: [facility] 08-28-2022 zoster vaccine recombinant [facility] DO Work Phone: [facility] 08-28-2022 influenza virus vaccine, unspecified formulation [facility] Work Phone: [facility] 03-22-2021 Moderna COVID-19 Vaccine 100 MCG/0.5ML Intramuscular Suspension No PCP None [facility] 02-22-2021 Moderna COVID-19 Vaccine 100 MCG/0.5ML Intramuscular Suspension No PCP None [facility] 01-31-2021 pneumococcal conjuga te vaccine, 13 valent No PCP None [id number] [place] [address] Work Phone: 09-20-2020 pneumococcal polysaccharide vaccine, [address] Sin Lujan Work Phone: [facility] 09-20-2020 pneumococcal vaccine , unspecified formulation Dr. Sin Lujan Work Phone: [facility] Work Phone: 08-28-2020 influenza, injectabl e, quadrivalent, preservative free [employer] SPECIALISTPaddy Davis NP Work Phone: [facility] 08-28-2020 influenza, seasonal, injectable Dr. Sin Lujan Work Phone: [facility] 08-28-2020 [facility] DO Work Phone: [facility] 08-12-2018 influenza, injectabl e, quadrivalent, preservative free Dr. Juliet Lujan MD Work Phone: [facility] 08-12-2018 influenza, seasonal, injectable No PCP None [id number] [place] [address] Work Phone: 08-11-[address] Sin Lujan Work Phone: [facility] 08-11-2017 Influenza, seasonal, injectable, preservative free Tami Alfredo [employer] Work Phone: [facility] 08-11-2017 [facility] DO Work Phone: [facility] 07-08-2017 influenza, injectabl e, quadrivalent, contains preservative No PCP None [id number] [place] [address] Work Phone: 07-08-2017 influenza, injectabl e, quadrivalent, preservative free Dr. Juliet Lujan MD Work Phone: [facility] 07-08-2017 tetanus toxoid, redu juliette diphtheria toxoid, and acellular pertussis vaccine, adsorbed No PCP None [facility] [place] [employer] [address] Work Phone: 08-12-2016 pneumococcal polysaccharide vaccine, 23 valent No PCP None [facility] [place] [address] Work Phone: 07-15-2016 influenza, injectabl e, quadrivalent, preservative free [employer] SPECIALIST-C Jeanna Davis [employer] Work Phone: [facility] 07-15-2016 influenza, seasonal, injectable Dr. Sin Lujan Work Phone: [facility] 08-07-2015 influenza, injectabl e, quadrivalent, preservative free Dr. Juliet Lujan MD Work Phone: [facility] 08-07-2015 influenza, seasonal, injectable No PCP None [facility] [place] [employer] [address] Work Phone: 08-03-[address] Sin Lujan Work Phone: [facility] 08-03-2014 Influenza, seasonal, injectable, preservative free Tami Alfredo [employer] Work Phone: [facility] 08-03-2014 [facility] Work Phone: [facility] 04-30-1995 diphtheria and tetan us toxoids, adsorbed for pediatric use Lucina Galvan DO Work Phone: [facility] Health Payers Date Payer Category Payer Unknown [id number] 2025 Unknown [id number] 2024 Private Health Insurance [facility] [id number] 2024 Medicare [id number] 2024 Self-pay [id number] 2024 Commercial Managed C [facility] - HMO 1.2.840.759536.1.13.680.2. [id number] 2024 Unknown 2024 Unknown [id number] 2011 Private Health Insurance [id number] Unknown [id number] Unknown [facility] [id number] Unknown [id number] 2.16.840.1.276501.3.579.2. 462 Unknown [id number] 2.16.840.1.104850.3.579.2. 462 Unknown [id number] 2.16.840.1.055636.3.579.2. 462 Unknown [id number] 2.16.840.1.132107.3.579.2. 462 Unknown [id number] 2.16.840.1.239725.3.579.2. 462 Unknown [id number] 2.16.840.1.464485.3.579.2. 462 Unknown [id number] 2.16.840.1.053932.3.579.2. 462 Unknown [id number] 2..840.1.166227.3.579.2. 462 Unknown [id number] 2.16.840.1.556064.3.579.2. 462 Unknown [id number] 2.840.1.447929.3.579.2. 462 Unknown [id number] 2.16.840.1.578898.3.579.2. 462 Unknown [id number] 2.16840.1.410638.3.579.2. 462 Unknown [id number] 2.16.840.1.304843.3.579.2. 462 Unknown [id number] 2.16.840.1.525485.3.579.2. 462 Unknown [id number] 2.16840.1.482402.3.579.2. 462 Unknown [id number] 2.16.840.1.072207.3.579.2. 462 Unknown [id number] 2.16.840.1.487754.3.579.2. 462 Unknown [id number] 2.16.840.1.599359.3.579.2. 462 Unknown [id number] 2.16.840.1.993782.3.579.2. 462 Unknown [id number] 2.16.840.1.196644.3.579.2. 462 Unknown [id number] 2.16.840.1.513161.3.579.2. 462 Unknown [id number] 2.16.840.1.447913.3.579.2. 462 Unknown [id number] 2.16.840.1.559726.3.579.2. 462 Unknown [id number] 2.16.840.1.514944.3.579.2. 462 Unknown [id number] 2.16.840.1.899487.3.579.2. 462 Unknown [id number] 2.16.840.1.541404.3.579.2. 462 Unknown [id number] 2.16.840.1.684338.3.579.2. 462 Unknown [id number] 2.840.1.984485.3.579.2. 462 Unknown [id number] 2.16840.1.691306.3.579.2. 462 Unknown [id number] 2.16.840.1.322939.3.579.2. 462 Unknown [id number] 2..840.1.944576.3.579.2. 462 Unknown [id number] 2.16.840.1.240415.3.579.2. 462 Unknown [id number] 2.16.840.1.379478.3.579.2. 462 Unknown [id number] 2.16.840.1.180710.3.579.2. 462 Unknown [id number] 2.16.840.1.409692.3.579.2. 462 Unknown [id number] 2.16.840.1.392612.3.579.2. 462 Unknown [id number] 2.16.840.1.309608.3.579.2. 462 Unknown [id number] 2.16.840.1.194549.3.579.2. 462 Unknown [id number] 2.16.840.1.312453.3.579.2. 462 Unknown [id number] 2.16.840.1.590159.3.579.2. 462 Unknown [id number] 2.16.840.1.127914.3.579.2. 462 Unknown [id number] 2.16.840.1.331445.3.579.2. 462 Unknown [id number] 2.16.840.1.956804.3.579.2. 462 Unknown [id number] 2.16.840.1.125962.3.579.2. 462 Unknown [id number] 2.16.840.1.321223.3.579.2. 462 Unknown [id number] 2.16.840.1.678079.3.579.2. 462 Unknown [id number] 2.16840.1.760432.3.579.2. 462 Unknown [id number] 2..840.1.850995.3.579.2. 462 Unknown [id number] 2..840.1.704062.3.579.2. 462 Unknown [id number] 2.16.840.1.942800.3.579.2. 462 Unknown [id number] 2.16.840.1.860627.3.579.2. 462 Unknown [id number] 2.16.840.1.936413.3.579.2. 462 Unknown [id number] 2.16.840.1.142859.3.579.2. 462 Unknown [id number] 2.16.840.1.421432.3.579.2. 462 Unknown [id number] 2.16.840.1.729881.3.579.2. 462 Unknown [id number] 2.16.840.1.194549.3.579.2. 462 Unknown [id number] 2.16.840.1.947992.3.579.2. 462 Unknown [id number] 2.16.840.1.058913.3.579.2. 462 Unknown [id number] 2.16.840.1.295033.3.579.2. 462 Social History Date Type Detail Facility Start: 01-10-2022 End: 07-14-2023 Tobacco smoking status SDIS Unknown if ever smoked [facility] Start: 08-26-2020 None [facility] Start: 08-26-2020 Spouse/ Signif icant Other [facility] Start: 08-29-2020 Cigarettes [facility] Start: 1960 Sex Assigned At Female [facility] Start: 08-12-2024 End: 08-24-2024 Current smoker Current smoker [facility] Start: 1960 Sex assigned at S [facility] Start: 08-12-2024 End: 08-24-2024 Gender identity Not on file [facility] Start: 08-12-2024 [facility] tobacco [facility] Start: 08-12-2024 Tobacco use and exposure Smokeless tobacco non-user [facility] Has the [employer], [employer], or [employer] threatened to shut off services in your home in past 12Mo No [facility] How often to you hav e a drink containing alcohol? Never [facility] How many standard drinks containing alcohol do you have on a typical day? [facility] Carpooling Website (I/We) worried wheth er (my/our) food would run out before (I/we) got money to buy more. Never true [facility] [employer] [facility] Start: 07-26-2024 End: 01-20-2025 Sex Female (finding) [facility] Start: 03-23-2009 End: 06-02-2025 Tobacco smoking status NHIS Ex-smoker [facility] End: 12-18-2009 History of tobacco use Current smoker [facility] End: 12-18-2009 History of tobacco use Cigarette Smoker [facility] Start: 04-02-2012 Alcoholic beverage intake Current non-drinker of alcohol (finding) [facility] Medical Equipment Procedure Code Equipment Code Equipment Origin al Text Equipment Identifier Dates Creation, AV fistula [id number] FDA Start: 12-28-2024 Creation, AV fistula [id number] FDA Start: 12-28-2024 Creation, AV fistula [id number] FDA Start: 12-28-2024 Blood Sugar Diagnostic (Freestyle [...] test blood sugar s 6-8 times daily [id number] Start: 03-23-2009 Blood Sugar Diagnostic (Freestyle Precision Jeff Strips) strip Start: 08-26-2023 End: 01-27-2025 Blood Sugar Diagnostic (Freestyle Precision Jeff Strips) strip Start: 08-26-2023 End: 01-27-2025 Blood Sugar Diagnostic (Freestyle Precision Jeff Strips) strip Start: 08-26-2023 End: 01-27-2025 Goals Date Patient Goal Desired Activity /State Functional Status Date Assessment Result Facility 06-04-2025 Functional status Unable to Assess [facility] Work Phone: 06-03-2025 Functional status Bedpan [facility] Work Phone: 06-01-2025 Functional status Ambulates;Bathroom [facility] Work Phone: 01-06-2025 Functional status Ambulates;Bathroom [facility] Work Phone: Mental Status Date Assessment Result Facility 06-04-2025 Cognitive function Voice/Name [facility] Work Phone: 06-01-2025 Cognitive function Voice/Name [facility] Work Phone: 05-20-2025 Cognitive function Awake;Alert;A ppropriate;Fol lows Commands [facility] Work Phone: 05-08-2025 Cognitive function Awake;Alert;A ppropriate;Fol lows Commands [facility] Work Phone: 04-09-2025 Cognitive function Awake;Alert;A ppropriate;Fol lows Commands [facility] Work Phone: 01-06-2025 Cognitive function Voice/Name [facility] Work Phone: 12-28-2024 Cognitive function Sedated [facility] Work Phone: 12-28-2024 Cognitive function Voice/Name [facility] Work Phone: 11-20-2024 Cognitive function Awake;Alert;A ppropriate;Fol lows Commands [facility] Work Phone: Clinical Notes 05-20-2023 to 06-04-2025 Note Date & Type Note Facility 06-04-2025 Discharge summary Note Date/Time June 04, 2025 12:23pm [facility] Medical Records Department [address] [place] [id number] Discharge Summary 06/04/25 0908 MR#: [id number] Acct: [id number] Name: SANDY DENG Rep #:[id number] : 1960 64 From: Stacy Fontenot DO PCP: Dr. Juliet Lujan MD Status :ADM IN Location: ICU CVICU20 - Providers Date of Admission: 06/02/25 Date of Discharge: 06/04/25 Primary Care Physician: Dr. Juliet Lujan MD Consultations 06/02/25 08:26 Consult: Nephrology Routine Consulting Provider: Christy Fontenot Reason for Consult: Chronic HD EMERGENT Consult: No MD Notified: Yes Date Notified: 06/02/25 Time Notified: 08:26 Method of Notification: Text Reason For Visit: DKA Diagnosis Discharge Diagnosis (1) Acute hyperkalemia: Status: Acute Code(s): E87.5 - Hyperkalemia (2) DKA, type 1: Status: Acute Code(s): E10.10 - Type 1 diabetes mellitus with ketoacidosis without coma (3) Severe malnutrition: Status: Acute Code(s): E43 - Unspecified severe protein-calorie malnutrition (4) Toxic metabolic encephalopathy: Status: Acute Code(s): G92.8 - Other toxic encephalopathy (5) End-stage renal disease on hemodialysis: Status: Acute Code(s): N18.6 - End stage renal disease; Z99.2 - Dependence on renal dialysis (6) Anemia: Status: Acute Code(s): D64.9 - Anemia, unspecified (7) Chronic hypoxemic respiratory failure: Status: Chronic Code(s): J96.11 - Chronic respiratory failure with hypoxia Medications at Discharge Home Medications simvastatin 40 [...] mg/mL subcutaneous syringe (Prolia) 60 mg subcut [id number] bone health #1 mL 06/10/24 clopidogrel 75 [...] PO TID PRN To lower Phosphorus 12/14/24 blood-glucose sensor (FreeStyle Eileen 2 Plus Sensor device) #6 ea 02/09/25 insulin pump cart,auto,BT,G6/L (Omnipod 5 (G6/Eileen 2 Plus) subcutaneous cartridge) #30 ea 02/09/25 albuterol sulfate 90 mcg/actuation aerosol inhaler 2 puff inhalation Q6H PRN PRNCough #8.5 grams 03/14/25 blood-glucose sensor (DexCrowdMob G6 Sensor device) #3 ea 04/07/25 blood-glucose [...] release(part/cryst) 20 meq PO BID potassium 05/31/25 pseudoephedrine-guaifenesin ER 60 mg-600 mg tablet,extend release 12hr (Mucinex D) 1 tab PO BID PRN cold symptoms 06/02/25 Hospital Course Operations None Procedures Dialysis, EKG and - (Chest x-ray) Summary of Care Provided Minutes Spent on Discharge: 39 Hospital Course: SANDY DENG, is a 64 F who presented to the emergency department at [facility] early on the morning of 06/02/2025 with a chief complaint of shortness of breath. Patient is chronic hypoxic respiratory failure and on chronic oxygen at 3 L nasal cannula. Her saturations were stable but she seemedto be more tachypneic and having increased confusion. Storms through the night because her electricity go off and her was concerned that maybe she was having some respiratory issues related to her breathing problems. We also discovered that she had not been wearing her insulin pump initially it was thought that she did not have the right supplies but that does not seem to be the case. The states they have all the supplies needed at home but theydid not hook her up when she left because she was little bit tired and seemed a little confused from the medication so we did not put her on a pump as ordered at discharge from the hospital. On further questioning, we discovered that she asked the pump to be taken off on Friday and it does not seem like she may have had insulin since that point in time. There did not appear to be any physician notification of pump removal and patient was not getting insulin from what I cantell. She was to go to the OR on Friday for tunneled dialysis catheter placement however this did not end up happening because her fistula was working enough to run dialysis. A fistulogram was done on 06/01/2021 and the patient wasrun on dialysis without any difficulties and therefore was sent home on the sameday. VS on presentation 94.7, HR 60, RR 25, 103/34, 93% on 3 L nasal cannula. CBC shows stable anemia. Chem panel is marked abn with Na 132, K was 6.1, HCO3 was 11.6, AG was 28, renal function was stable, glucose was 255, A1c 5.9. ABG showed a pH of 7.06/pCO2 56.7/PaO2 was 78/bicarb was 16.1. Chest x-ray showed persistent right and mid lower lobe airspace disease that appears to be chronic. Symptoms are no different than previously per . DKA was diagnosed by theemergency department she was placed on an insulin drip and given IV fluids and made NPO. She is admitted to intensive care unit and placed on insulin drip, IVfluids per protocol, electrolyte replacement per protocol, BiPAP as she was having difficulty compensating from a respiratory standpoint due to her chronic lung disease and nephrology was consulted for dialysis. She had dialysis on and Friday. Within 24 hours of admission, her gap had closed and her beta-hydroxybutyrate had cleared. She was transition back to her insulin pump midday on 06/03/2025 and a repeat BMP was done 4 hours after this. BMP looked good. She continued on her insulin pump and repeat lab was drawn in the a.m. of06/04/2025 which remained good. No signs of acidosis or anion gap present. Bloodsugars were fairly well-controlled. She was seen by physical Occupational Therapy and they did recommend placement at discharge. Case management discussed this with family and they were adamant that they were going to take her home and wanted no services. This was reiterated with me. Given this, I amconcerned about readmission after discharge due to functional status. I think she is a high risk for readmission based on her chronic medical issues and her overall deconditioning. She was discharged home in stable condition with insulin pump in place on 06/04/2025. No medication changes were made at the time of discharge. Follow-ups given at her previous hospitalization stand and she should follow-up according to this documentation. Continue home dialysis as shehad been previously. We did have repeat CODE STATUS discussion and both she andher maintains that she would like to remain full code and understand therisks. Discharge diagnoses: DKA Anion gap metabolic acidosis Toxic/metabolic encephalopathy Hyperkalemia Malfunctioning dialysis access-resolved Chronic hypoxic and hypercapnic respiratory failure COPD Cachexia Severe malnutrition CAD Essential hypertension Hyperlipidemia End-stage renal disease Chronic anemia secondary to renal disease DM-1 Physical Exam Narrative Patient states she is feeling well. Tolerating her insulin pump without any issues. Labs look good. Patient and clear the knowledge of discharge anywhere but home. Const alert, oriented x3 and no apparent distress; Negative for average body habitus, healthy appearing or well nourished Constitutional Narrative: Blood pressure middle-aged, cachectic appearing, white female who appears older than stated age sitting up in bed, appears comfortable, at bedside, watching television, nontoxic General Appearance: cooperative, comfortable and well kempt Orientation / Consciousness: awake, oriented to person, oriented to place, oriented to time and disoriented Nutritional Appearance: cachectic HEENT normocephalic and head/scalp atraumatic; Negative for hearing grossly normal bilaterally HEENT Narrative: Mallampati 1, no thrush, temporal wasting bilaterally, marked hearing loss Eyes Negative for conjunctivae normal Eyes Narrative: Conjunctiva are mildly pale bilaterally, no scleral icterus Neck supple Neck Narrative: Trachea midline, neck veins are flat Resp normal respiratory effort, no retractions, no use of accessory muscles and clearto auscultation bilaterally Resp Narrative: Diminished but clear Auscultation: Negative for crackles, rhonchi or wheezes Cardio regular rate, regular rhythm, S1 normal heart sound, S2 normal heart sound, no murmurs, no rub, no gallops and no clicks GI normal to inspection, nondistended, normoactive bowel sounds, soft to palpation and non-tender GI Narrative: Scaphoid abdomen Extremity no clubbing, cyanosis or edema Extremity Narrative: Marked decreased lean muscle mass, right upper extremity fistula accessed and patient is on dialysis Skin no jaundice, no petechiae and no mottling Skin Narrative: Skin is thin Neuro oriented x3, moves all extremities and no focal motor deficits Neuro Narrative: Significant generalized weakness noted but no focal deficits Speech: speech normal Psych affect normal Psych Narrative: Appears much improved, eye contact is good and patient interacts appropriately, hearing loss impacts interactions Medical Records Data Medical Nutrition Assessment Dietitian: Malnutrition Criteria Met Start: 06/02/25 10:20 Freq: Status: Active Protocol: Document 06/02/25 10:20 RMA (Rec: 06/02/25 10:20 RMA [id number]) Nutrition Malnutrition Evidence of Yes Malnutrition Exists Malnutrition (severe Chronic ): Evidenced By Suboptimal Energy Intake (Severe),Weight Loss (Severe), Physical Changes (Severe) Clinical Problem Chronic Disease or Condition Related Malnutrition Etiology severe protein-calorie malnutrition in the context of chronic disease and debility related to inadequate oral /energy intake and increased energy expenditure/COPD Signs/Symptoms as evidenced by currently NPO, BMI 17.9, approximately 8-10% unintentional weight loss x past 6-12 months, inadequate oral intake meeting less than 75% estimated nutrition needs x 12 months and obvious physical signs of muscle wasting and fat depletion in the clavicle, orbital, temporal region, arms and legs. Status Active Problem Recommendation Dietitian Recommend advance diet to Carbohydrate-Controlled/Renal Recommendations/ General. Changes Liberalize diet as needed as PO adequacy established with meals. Consider MASTICATOR consult to evaluate swallowing ability; texture/consistency as per MASTICATOR. PO Nepro as pt willing; has refused in the past. Diet education as pt agreeable. Weight / BMI Weight Weight: 46.9 kg Body Mass Index (BMI) 18.3 ABG / Lab / Microbiology Data 06/04/25 08:37 06/04/25 08:00 Laboratory: Laboratory Results - last 24 hr 06/03/25 15:18: POC Glucose 164 H 06/03/25 16:10: Sodium 138, Potassium 3.7, Chloride 104, Carbon Dioxide 24.3, Anion Gap 10, BUN 22 H, Creatinine 2.24 H, Estim Creat Clear Calc 17.59 L, Est GFR (MDRD) Non-Af 24 L, BUN/Creatinine Ratio 9.9 L, Glucose 157 H, Calcium 7.7 06/03/25 16:15: POC Glucose 148 H 06/03/25 22:31: POC Glucose 141 H 06/04/25 08:00: WBC Cancelled, Corrected WBC Cancelled, RBC Cancelled, Hgb Cancelled, Hct Cancelled, MCV Cancelled, MCH Cancelled, MCHC Cancelled, RDW Std Deviation Cancelled, RDW Coeff of Iron Cancelled, Plt Count Cancelled, MPV Cancelled, Diff Path Review Cancelled, Sodium 136, Potassium 3.7, Chloride 102, Carbon Dioxide 23.7, Anion Gap 11, BUN 29 H, Creatinine 3.04 H, Estim Creat Clear Calc 13.66 L, Est GFR (MDRD) Non-Af 16 L, BUN/Creatinine Ratio 9.6 L, Glucose 143 H, Calcium 7.9 06/04/25 08:37: WBC 6.4, RBC 3.30 L, Hgb 9.4 L, Hct 30.7 L, MCV 93.0, MCH 28.5, MCHC 30.6 L, RDW Std Deviation 54.2 H, RDW Coeff of Iron 16.7 H, Plt Count 165, MPV 8.9 Microbiology: Microbiology 06/02/25 06:58 Blood Culture (Wb) - Left Forearm Blood Culture - Preliminary No growth in 48 hours. 06/02/25 06:42 Blood Culture (Wb) - Anticubital Left Blood Culture - Preliminary No growth in 48 hours. D/C Instructions Discharge Activity: Return to Normal Activity DC O2, CPAP, BIPAP Needs Home O2 Discharge instructions: Yes Type of respiratory needs?: Oxygen Oxygen frequency: Continuous Continuous oxygen liters per minute: 2-3 DC home with Oxygen: Yes Home O2 MD Review: I have reviewed the oxygen testing, and the patient qualifies for home oxygen equipment and portability. The patient is mobile in the home and the community. Meaningful Use Info Meaningful Use Meaningful Use Diagnoses (Choose all that apply): None applicable Discharge Plan Admission Admit Date/Time: 06/02/25 07:07 Primary Reason for Your Visit: Altered mental status Attending Provider: Stacy Fontenot Primary Care Provider: Juliet Lujan Consulting Providers: Christy Fontenot Discharge Orders/Prescriptions Prescriptions: Continued aspirin 81 mg [...] ONLY WANTS TO TAKE ONCE PER DAY potassium chloride 20 mEq tablet,ER particles/crystals 20 meq PO BID calcitriol 0.5 mcg capsule 0.5 mcg PO DAILY ondansetron 4 mg tablet,disintegrating 4 mg PO Q8H PRN PRN (Reason: Nausea) Qty: 10 0RF pseudoephedrine-guaifenesin [Mucinex D] 60-600 mg tablet extended release 12 hr 1 tab PO BID PRN (Reason: cold symptoms) ipratropium-albuterol 0.5 mg-3 mg(2.5 mg base)/3 mL solution for nebulization 3 ml inhalation Q4H PRN PRN (Reason: SOB &/OR WHEEZING) Qty: 180 6RF Prolia 60 mg/mL syringe 60 mg subcut [id number] Qty: 1 1RF Patient Comments: Next injection [...] Qty: 30 11RF Referrals / Follow Up: Juliet Lujan MD [Primary Care Provider] - Within 1 Week Disposition Disposition (needs filled in before D/C Order can be placed): Home, Self Care Charges/Coding Visit Charges Inpatient E&M: 67037 Disch Hosp >30min 06/04/25 1223 <Electronically signed by Stacy Fontenot DO> Cosigner Signature (if applicable): CC: Dr. Juliet Lujan MD; Dr. Stacy Fontenot DO~ Signed [facility] Work Phone: 1(306) 136-444708-01-2025 Progress note Author Stacy Fontenot [facility] Note Date/Time June 03, 2025 9:4 0am [facility] Medical Records Department [address] [place] [address] Progress Note - Hospitalist 06/03/25 0713 MR#: [id number] Acct: [id number] Name: SANDY DENG Rep #:[id number] : 1960 64 From: Stacy Fontenot DO PCP: Dr. Juliet Lujan MD Status :ADM IN Location: ICU CVICU20 11-03 Reason for Visit Chief Complaint: Shortness of breath Subjective Subjective No issues overnight. Still some mild confusion this morning. Currently on BiPAP will continue through dialysis. Plan is for dialysis today instead of tomorrow to help now. Anticipate discharge home as long as mental status improves and blood sugars remained stable. DKA has resolved with normal weight hydroxybutyrate plan on transitioning off the insulin drip once she is off Objective Data Objective Data Vital Signs: Vital Signs Temp Pulse Resp BP Pulse Ox O2 Del Method O2 Flow Rate 97.4 F L 75 22 H 171/66 H 100 Nasal Cannula 2 06/03/25 04:00 06/03/25 07:00 06/03/25 07:00 06/03/25 07:00 06/03/25 07:00 06/03/25 07:00 06/03/25 07:00 FiO2 35 06/03/25 06:25 Oxygen Flow Rate (L/min) 2 Oxygen Delivery Method Nasal Cannula Weight: 47 kg Body Mass Index (BMI) 18.3 Intake & Output: Intake and Output for Last 24 Hours 06/01/25 06/02/25 06/03/25 23:59 23:59 23:59 Intake Total 1055.88 / 1058.98 1022.64 / 1022.64 Output Total 1070 / 1070 0 / 0 Balance -14.12 / -11.02 1022.64 / 1022.64 Medical Nutrition Assessment Dietitian: Malnutrition Criteria Met Start: 06/02/25 10:20 Freq: Status: Active Protocol: Document 06/02/25 10:20 RMA (Rec: 06/02/25 10:20 RMA [id number]) Nutrition Malnutrition Evidence of Yes Malnutrition Exists Malnutrition (severe Chronic ): Evidenced By Suboptimal Energy Intake (Severe),Weight Loss (Severe), Physical Changes (Severe) Clinical Problem Chronic Disease or Condition Related Malnutrition Etiology severe protein-calorie malnutrition in the context of chronic disease and debility related to inadequate oral /energy intake and increased energy expenditure/COPD Signs/Symptoms as evidenced by currently NPO, BMI 17.9, approximately 8-10% unintentional weight loss x past 6-12 months, inadequate oral intake meeting less than 75% estimated nutrition needs x 12 months and obvious physical signs of muscle wasting and fat depletion in the clavicle, orbital, temporal region, arms and legs. Status Active Problem Recommendation Dietitian Recommend advance diet to Carbohydrate-Controlled/Renal Recommendations/ General. Changes Liberalize diet as needed as PO adequacy established with meals. Consider MASTICATOR consult to evaluate swallowing ability; texture/consistency as per MASTICATOR. PO Nepro as pt willing; has refused in the past. Diet education as pt agreeable. Lab / Micro Data 06/03/25 04:15 06/03/25 04:15 Labs: Laboratory Results - last 24 hr 06/02/25 06:42: Lactic Acid 1.3 06/02/25 08:02: POC Glucose 339 H 06/02/25 09:09: POC Glucose 324 H 06/02/25 10:03: POC Glucose 294 H 06/02/25 10:24: Sodium 135, Potassium 4.3, Chloride 97 L, Carbon Dioxide 17.7 L,Anion Gap 20 H, BUN 56 H, Creatinine 3.48 H, Estim Creat Clear Calc 11.65 L, EstGFR (MDRD) Non-Af 14 L, BUN/Creatinine Ratio 15.9, Glucose 285 H, Calcium 8.6, Phosphorus 6.7 H, Magnesium 2.3 H 06/02/25 11:02: POC Glucose 255 H 06/02/25 12:09: POC Glucose 224 H 06/02/25 13:16: POC Glucose 186 H 06/02/25 14:02: POC Glucose 186 H 06/02/25 14:41: Sodium 134, Potassium 4.5, Chloride 99, Carbon Dioxide 20.2 L, Anion Gap 15, Phosphorus 3.9, Magnesium 2.0 06/02/25 15:03: POC Glucose 176 H 06/02/25 16:01: POC Glucose 208 H 06/02/25 17:01: POC Glucose 199 H 06/02/25 17:51: Sodium 135, Potassium 4.0, Chloride 100, Carbon Dioxide 24.1, Anion Gap 11, Phosphorus 3.3, Magnesium 1.9, b-Hydroxybutyric mmol/L 1.2 H 06/02/25 18:01: POC Glucose 217 H 06/02/25 20:05: POC Glucose 230 H 06/02/25 21:09: POC Glucose 227 H 06/02/25 22:02: POC Glucose 212 H 06/02/25 23:13: POC Glucose 214 H 06/03/25 00:09: POC Glucose 193 H 06/03/25 01:01: POC Glucose 172 H 06/03/25 02:12: POC Glucose 166 H 06/03/25 03:08: POC Glucose 162 H 06/03/25 04:07: POC Glucose 126 H 06/03/25 04:15: WBC 7.0, RBC 3.00 L, Hgb 8.5 L, Hct 27.0 L, MCV 90.0 D, MCH 28.3, MCHC 31.5 L D, RDW Std Deviation 47.9 H, RDW Coeff of Iron 15.8 H, Plt Count 192, MPV 9.7, Immature Gran % (Auto) 0.600, Neut % (Auto) 78.3 H, Lymph % (Auto) 12.1 L, Duval % (Auto) 6.8, Eos % (Auto) 2.1, Baso % (Auto) 0.1, Absolute Neuts (auto) 5.5, Absolute Lymphs (auto) 0.85, Nucleated RBC % 0.4, Sodium 134, Potassium 3.5, Chloride 100, Carbon Dioxide 25.1, Anion Gap 9, BUN 35 H, Creatinine 2.95 H, Estim Creat Clear Calc 13.36 L, Est GFR (MDRD) Non-Af 17 L, BUN/Creatinine Ratio 11.9, Glucose 138 H, Calcium 8.1, Phosphorus 2.3 L, Magnesium 1.9, Total Bilirubin 0.36, AST 31, ALT 14, Alkaline Phosphatase 73, Total Protein 5.1 L, Albumin 3.1 L, Globulin 2.0 L, Albumin/Globulin Ratio 1.5, b-Hydroxybutyric mmol/L 0.0 ABG Data ABG results: ABG 06/02/25 07:46 Specimen Type ART Sample Site L Brach pH 7.06 L* Bicarbonate Actual 16.1 L Total CO2 18 Base Excess -14 L O2 Saturation 88 L O2 % 3.0 ABG pCO2 56.7 H ABG pO2 78 O2 Delivery Device Cannula Vent Mode Not entered Crit Call To/Read Back Yes Blood Gas Notified Whom po Blood Gas Notified Time 07:47:39 Rhythm Strip Rhythm Strip: Sinus Rhythm Rate: 55 Ectopy: None Physical Exam Const alert and no apparent distress; Negative for oriented x3, average body habitus, healthy appearing or well nourished Constitutional Narrative: Mildly confused but awake and alert, upper middle-aged, white female who appearsmuch older than stated age, lying in bed, currently on BiPAP, at bedside Orientation / Consciousness: confused HEENT normocephalic and head/scalp atraumatic; Negative for hearing grossly normal bilaterally HEENT Narrative: Marked hearing loss Neck Neck Narrative: N Resp normal respiratory effort, no retractions, no use of accessory muscles and clearto auscultation bilaterally Resp Narrative: few scattered end expiratory wheezes, on her nocturnal BiPAP as she is waking upthis morning Auscultation: Negative for crackles, rhonchi or wheezes Cardio regular rate, regular rhythm, S1 normal heart sound, S2 normal heart sound, no murmurs, no rub, no gallops and no clicks GI normal to inspection, nondistended, normoactive bowel sounds, soft to palpation and non-tender GI Narrative: Scaphoid abdomen Extremity no clubbing, cyanosis or edema Extremity Narrative: Marked decreased lean muscle mass, right upper extremity fistula accessed and patient is on dialysis Neuro moves all extremities and no focal motor deficits Neuro Narrative: Significant generalized weakness noted but no focal deficits Sensorium / Orientation: awake, alert and oriented to person Speech: Negative for speech normal Psych Psych Narrative: Affect is still slightly flat but much improved, eye contact is good, patient much more interactive Assessment & Plan Assessment/Plan (1) Acute hyperkalemia: (2) DKA, type 1: (3) Severe malnutrition: (4) Toxic metabolic encephalopathy: PLAN: Plan DKA - Resolved - Beta hydroxybutyrate is unremarkable - Discontinue DKA protocol - Transition to insulin pump with repeat BMP in 4 hours to ensure appropriate functioning Anion gap metabolic acidosis - Resolved Toxic/metabolic encephalopathy - Resolving Hyperkalemia - Resolved Malfunctioning dialysis access - Resolved with fistulogram done on 06/01/2025 Chronic hypoxic and hypercapnic respiratory failure/COPD -Avoid any sedating medications - Continue home inhalers - Patient is on 2 to 3 L at baseline chronically and currently on 2 L with oxygen saturations at 99% - Baseline CO2 is elevated - BiPAP nocturnally - Blood cultures are pending from admission but patient had blood cultures on the that were unremarkable for growth Cachexia/severe malnutrition - Dietitian is following - Patient is underweight with a BMI of 16.3 - Continue supplements - Dietitian is following CAD/essential hypertension/hyperlipidemia - Continue aspirin and Plavix - continue home statin - Restart home metoprolol and amlodipine ESRD - 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 - HD per nephrology - Patient does home dialysis at baseline - Nephrology is following-appreciate input Chronic anemia secondary to renal disease - Hemoglobin remains stable DM-1 - Restart insulin pump after dialysis - Accu-Cheks as ordered - Check BMP 4 hours after reinitiating pump - Continue outpatient follow-up after discharge with endocrinology DVT prophylaxis - Continue subcu heparin twice daily CODE STATUS - Full code--> this was reconfirmed with Charges/Coding Visit Charges Inpatient E&M: 61700 Subs Hosp L2 06/03/25 0940 <Electronically signed by Stacy Fontenot DO> Cosigner Signature (if applicable): CC: ~ Signed [facility] Work Phone: 1(680) 321-311108-01-2025 Consult note Author [facility] Note Date/Time June 03, 2025 9:3 6am [facility] Medical Records Department [address] [place] [id number] Consultation - Nephrology 06/02/25 1014 MR#: [id number] Acct: [id number] Name: SANDY DENG Rep #:[id number] : 1960 64 From: Christy Wright PCP: Dr. Juliet Lujan MD Status :ADM IN Location: ICU CVICU20 1-1 Assessment & Plan Assessment/Plan (1) End-stage renal disease on hemodialysis: PLAN: dialysis today and tomorrow, home hemodialysis 4x/week (2) Acute hyperkalemia: PLAN: urgent dialysis (3) Chronic hypoxemic respiratory failure: (4) Anemia: PLAN: retacrit (5) Hypercarbia: (6) DKA, type 1: HPI Consult Data Date of Consult: 06/02/25 HPI Narrative Reason for Consultation: ESRD HPI Narrative: SANDY DENG, is a 64 F with ESRD due to DMtype 1 on home hemodialysis. Discharged yesterday after fistulogram with angioplasty for malfunctioning fistula, readmitted for hypoxia, DKA with hyperkalemia potassium 6.2 sugar 366, bicarbonate 11.6. Lost power at home and BIPAP machine stopped working. Currently started dialysis with discomfort with venous needle. Needle replacement successful and resumed dialysis. Pain resolved. Hgb low at 8.4g. Vitals stable. [facility] Medical History Chronic hypoxic respiratory failure On [...] nodule, solitary Fissure in skin of foot Gordo's sign present Tobacco abuse CKD (chronic kidney [...] Anxiety Depression Atherosclerosis of coronary artery of [place] heart without angina pectoris NSTEMI (non-ST elevated [...] denosumab 60 mg/mL subcutaneous 60 mg subcut [id number] bone health 06/10/24 07/09/24 Rx syringe (Prolia) [...] 800 mg PO TID PRN To lower 12/14/24 01/03/25 History Phosphorus blood-glucose sensor (FreeStyle #6 ea 02/09/25 Unknown [...] 25 mcg #3 ea inhalat.powder (Trelegy Ellipta) calcitriol 0.5 mcg capsule 0.5 mcg PO DAILY supplement 05/31/25 Unknown History potassium chloride 20 mEq 20 meq PO BID potassium 05/04 07/28 Unknown History tablet,extended release(part/cryst) pseudoephedrine-guaifenesin ER 60 1 tab PO BID PRN col d symptoms 06/02/25 Unknown History mg-600 mg tablet,extend release 12hr (Mucinex D) Allergy/AdvReac Type Severity Reaction Status Date / [...] Constitutional: Reports weakness; Denies chills or fever(s) Cardiovascular Cardiovascular: Denies chest pain or edema Respiratory/Chest Respiratory/Chest: Reports portable oxygen @ home, shortness of breath at rest and wheezing Gastrointestinal Gastrointestinal: Denies abdominal pain, diarrhea, nausea or vomiting Neurologic Neurologic: Reports weakness Psychiatric Psychiatric: Reports anxiety Hematologic/Lymphatic Hematologic/Lymphatic: Reports anemia Physical Exam Const alert and oriented x3 General Appearance: frail Nutritional Appearance: thin Resp Auscultation: wheezes and diminished lung sounds Cardio regular rate GI non-tender and non-distended Auscultation: normoactive bowel sounds Palpation: soft Extremity General Extremity: AV fistula Neuro Sensorium / Orientation: awake and alert Psych cooperative Lab / Micro Data 06/02/25 04:45 06/02/25 05:40 Labs: Laboratory Results - last 24 hr 06/02/25 04:45: WBC 7.3, RBC 2.95 L, Hgb 8.4 L, Hct 29.2 L, MCV 99.0 D, MCH 28.5, MCHC 28.8 L, RDW Std Deviation 53.7 H, RDW Coeff of Iron 15.4 H, Plt Count 237, MPV 9.9, Immature Gran % (Auto) 0.500, Neut % (Auto) 84.7 H, Lymph % (Auto)6.0 L, Duval % (Auto) 8.0, Eos % (Auto) 0.7, Baso % (Auto) 0.1, Absolute Neuts (auto) 6.2, Absolute Lymphs (auto) 0.44 L, Nucleated RBC % 0.5, Sodium 132 L, Potassium 6.1 H*, Chloride 93 L, Carbon Dioxide 11.6 L, Anion Gap 28 H, BUN 59 H,Creatinine 3.92 H, Estim Creat Clear Calc 10.57 L, Est GFR (MDRD) Non-Af 12 L, BUN/Creatinine Ratio 14.9, Glucose 366 H, Calcium 8.3 06/02/25 05:35: POC Glucose 366 H 06/02/25 05:40: Potassium 6.2 H*, b-Hydroxybutyric mmol/L 8.3 H 06/02/25 06:42: Lactic Acid 1.3 06/02/25 08:02: POC Glucose 339 H 06/02/25 09:09: POC Glucose 324 H ABG Data ABG results: ABG 06/02/25 06/02/25 04:55 07:46 Specimen Type ROHIT ART Sample Site Not entered L Brach pH 7.06 L* Bicarbonate Actual 16.1 L Total CO2 18 Base Excess -14 L O2 Saturation 88 L O2 % 40.0 3.0 ABG pCO2 56.7 H ABG pO2 78 VBG pH 7.07 L* VBG pO2 102 H VBG HCO3 14 L VBG Total CO2 15 L VBG O2 Sat (Calc) 95 H VBG Base Excess -16 L POC Mix VBG pCO2 Pt Tmp 47.5 O2 Delivery Device BiPAP Cannula Vent Mode Not entered Crit Call To/Read Back Yes Yes Blood Gas Notified Whom Thor fontenot Blood Gas Notified Time 04:56:57 07:47:39 Clinical Comments bipap 14. 6. 40% Rhythm Strip Rhythm Strip: Sinus Rhythm Rate: 55 Ectopy: None Imaging Radiology Impression Chest X-Ray 06/02/25 05:25 IMPRESSION: Suspect right lung base pneumonia, no interval change. Reading Location: [place] [address] 06/03/25 0936 <Electronically signed by Christy Fontenot DO> Cosigner Signature (if applicable): CC: Dr. Juliet Lujan MD~ Signed [facility] Work Phone: 1(499) 629-381508-01-2025 Progress note Author [facility] Note Date/Time June 03, 2025 9:3 6am [facility] Medical Records Department [address] [place] [id number] Progress Note - Nephrology 06/03/25 0933 MR#: [id number] Acct: [id number] Name: SANDY DENG Rep #:[id number] : 1960 64 From: Christy Wright PCP: Dr. Juliet Lujan MD Status :ADM IN Location: ICU CVICU20 1-1 Subjective Subjective seen on dialysis, tolerating fluid removal, attempt 2L today. Pt on BIPAP, wantsto go home. Potassium stable Objective Data Objective Data Vital Signs: Vital Signs Temp Pulse Resp BP Pulse Ox O2 Del Method O2 Flow Rate 97.8 F 70 17 152/62 H 100 Bi-pap 2 06/03/25 09:00 06/03/25 09:30 06/03/25 09:30 06/03/25 09:30 06/03/25 09:30 06/03/25 09:30 06/03/25 07:00 FiO2 35 06/03/25 09:30 Oxygen Flow Rate (L/min) 2 Oxygen Delivery Method Bi-pap Weight: 47 kg Body Mass Index (BMI) 18.3 Intake & Output: Intake and Output for Last 24 Hours 06/01/25 06/02/25 06/03/25 23:59 23:59 23:59 Intake Total 1055.88 / 1058.98 1025.12 / 1025.12 Output Total 1070 / 1070 0 / 0 Balance -14.12 / -11.02 1025.12 / 1025.12 Medical Nutrition Assessment Dietitian: Malnutrition Criteria Met Start: 06/02/25 10:20 Freq: Status: Active Protocol: Document 06/02/25 10:20 RMA (Rec: 06/02/25 10:20 RMA [id number]) Nutrition Malnutrition Evidence of Yes Malnutrition Exists Malnutrition (severe Chronic ): Evidenced By Suboptimal Energy Intake (Severe),Weight Loss (Severe), Physical Changes (Severe) Clinical Problem Chronic Disease or Condition Related Malnutrition Etiology severe protein-calorie malnutrition in the context of chronic disease and debility related to inadequate oral /energy intake and increased energy expenditure/COPD Signs/Symptoms as evidenced by currently NPO, BMI 17.9, approximately 8-10% unintentional weight loss x past 6-12 months, inadequate oral intake meeting less than 75% estimated nutrition needs x 12 months and obvious physical signs of muscle wasting and fat depletion in the clavicle, orbital, temporal region, arms and legs. Status Active Problem Recommendation Dietitian Recommend advance diet to Carbohydrate-Controlled/Renal Recommendations/ General. Changes Liberalize diet as needed as PO adequacy established with meals. Consider MASTICATOR consult to evaluate swallowing ability; texture/consistency as per MASTICATOR. PO Nepro as pt willing; has refused in the past. Diet education as pt agreeable. Lab / Micro Data 06/03/25 04:15 06/03/25 04:15 Labs: Laboratory Results - last 24 hr 06/02/25 08:02: POC Glucose 339 H 06/02/25 09:09: POC Glucose 324 H 06/02/25 10:03: POC Glucose 294 H 06/02/25 10:24: Sodium 135, Potassium 4.3, Chloride 97 L, Carbon Dioxide 17.7 L,Anion Gap 20 H, BUN 56 H, Creatinine 3.48 H, Estim Creat Clear Calc 11.65 L, EstGFR (MDRD) Non-Af 14 L, BUN/Creatinine Ratio 15.9, Glucose 285 H, Calcium 8.6, Phosphorus 6.7 H, Magnesium 2.3 H 06/02/25 11:02: POC Glucose 255 H 06/02/25 12:09: POC Glucose 224 H 06/02/25 13:16: POC Glucose 186 H 06/02/25 14:02: POC Glucose 186 H 06/02/25 14:41: Sodium 134, Potassium 4.5, Chloride 99, Carbon Dioxide 20.2 L, Anion Gap 15, Phosphorus 3.9, Magnesium 2.0 06/02/25 15:03: POC Glucose 176 H 06/02/25 16:01: POC Glucose 208 H 06/02/25 17:01: POC Glucose 199 H 06/02/25 17:51: Sodium 135, Potassium 4.0, Chloride 100, Carbon Dioxide 24.1, Anion Gap 11, Phosphorus 3.3, Magnesium 1.9, b-Hydroxybutyric mmol/L 1.2 H 06/02/25 18:01: POC Glucose 217 H 06/02/25 20:05: POC Glucose 230 H 06/02/25 21:09: POC Glucose 227 H 06/02/25 22:02: POC Glucose 212 H 06/02/25 23:13: POC Glucose 214 H 06/03/25 00:09: POC Glucose 193 H 06/03/25 01:01: POC Glucose 172 H 06/03/25 02:12: POC Glucose 166 H 06/03/25 03:08: POC Glucose 162 H 06/03/25 04:07: POC Glucose 126 H 06/03/25 04:15: WBC 7.0, RBC 3.00 L, Hgb 8.5 L, Hct 27.0 L, MCV 90.0 D, MCH 28.3, MCHC 31.5 L D, RDW Std Deviation 47.9 H, RDW Coeff of Iron 15.8 H, Plt Count 192, MPV 9.7, Immature Gran % (Auto) 0.600, Neut % (Auto) 78.3 H, Lymph % (Auto) 12.1 L, Duval % (Auto) 6.8, Eos % (Auto) 2.1, Baso % (Auto) 0.1, Absolute Neuts (auto) 5.5, Absolute Lymphs (auto) 0.85, Nucleated RBC % 0.4, Sodium 134, Potassium 3.5, Chloride 100, Carbon Dioxide 25.1, Anion Gap 9, BUN 35 H, Creatinine 2.95 H, Estim Creat Clear Calc 13.36 L, Est GFR (MDRD) Non-Af 17 L, BUN/Creatinine Ratio 11.9, Glucose 138 H, Calcium 8.1, Phosphorus 2.3 L, Magnesium 1.9, Total Bilirubin 0.36, AST 31, ALT 14, Alkaline Phosphatase 73, Total Protein 5.1 L, Albumin 3.1 L, Globulin 2.0 L, Albumin/Globulin Ratio 1.5, b-Hydroxybutyric mmol/L 0.0 06/03/25 05:34: POC Glucose 116 H 06/03/25 07:00: POC Glucose 90 06/03/25 08:39: POC Glucose 92 Rhythm Strip Rhythm Strip: Sinus Rhythm Rate: 55 Ectopy: None Physical Exam Narrative on BIPAP Const alert and oriented x3 General Appearance: frail Nutritional Appearance: cachectic and thin Resp Auscultation: wheezes and diminished lung sounds Cardio regular rate GI non-tender and non-distended Auscultation: normoactive bowel sounds Palpation: soft Extremity General Extremity: AV fistula Neuro Sensorium / Orientation: awake and alert Psych cooperative Assessment & Plan Assessment/Plan (1) End-stage renal disease on hemodialysis: PLAN: dialysis today home hemodialysis 4x/week (2) Acute hyperkalemia: PLAN: resolved (3) Chronic hypoxemic respiratory failure: PLAN: stable (4) Anemia: PLAN: retacrit (5) DKA, type 1: PLAN: resolved 06/03/25 0936 <Electronically signed by Christy Fontenot DO> Cosigner Signature (if applicable): CC: ~ Signed [facility] Work Phone: 1(155) 154-797007-31-2025 History and physical note Author Stacy Fontenot [facility] Note Date/Time June 02, 2025 7:56 pm [facility] Medical Records Department [address] [place] [address] H&P Exam - Hospitalist 06/02/25 0721 MR#: [id number] Acct: [id number] Name: SANDY DENG Rep #:[id number] : 1960 64 From: Stacy Fontenot DO PCP: Dr. Juliet Lujan MD Status :ADM IN Location: ICU CVICU20 1-1 HPI - General General Date of Admission: 06/02/25 Date of Service: 06/02/25 Chief Complaint: Shortness of breath HPI Narrative SANDY DENG, is a 64 F who presented to the emergency department at [facility] early on the morning of 06/02/2025 with a chief complaint of shortness of breath. Patient is chronic hypoxic respiratory failure and on chronic oxygen at 3 L nasal cannula. Her saturations were stable but she seemedto be more tachypneic and having increased confusion. Storms through the night because her electricity go off and her was concerned that maybe she was having some respiratory issues related to her breathing problems. We also discovered that she had not been wearing her insulin pump initially it was thought that she did not have the right supplies but that does not seem to be the case. The states they have all the supplies needed at home but theydid not hook her up when she left because she was little bit tired and seemed a little confused from the medication so we did not put her on a pump as ordered at discharge from the hospital. On further questioning, we discovered that she asked the pump to be taken off on Friday and it does not seem like she may have had insulin since that point in time. There did not appear to be any physician notification of pump removal and patient was not getting insulin from what I cantell. She was to go to the OR on Friday for tunneled dialysis catheter placement however this did not end up happening because her fistula was working enough to run dialysis. A fistulogram was done on 06/01/2021 and the patient wasrun on dialysis without any difficulties and therefore was sent home on the sameday. VS on presentation 94.7, HR 60, RR 25, 103/34, 93% on 3 L nasal cannula. CBC shows stable anemia. Chem panel is marked abn with Na 132, K was 6.1, HCO3 was 11.6, AG was 28, renal function was stable, glucose was 255, A1c 5.9. ABG showeda pH of 7.06/pCO2 56.7/PaO2 was 78/bicarb was 16.1. Chest x-ray showed persistent right and mid lower lobe airspace disease that appears to be chronic. Symptoms are no different than previously per . DKA was diagnosed by the emergency department she was placed on an insulin drip and given IV fluids and made NPO. She will be admitted to the intensive care unit. PFSH Medical History Chronic hypoxic respiratory failure On [...] Anxiety Depression Atherosclerosis of coronary artery of [place] heart without angina pectoris NSTEMI (non-ST elevated [...] denosumab 60 mg/mL subcutaneous 60 mg subcut [id number] bone health 06/10/24 07/09/24 Rx syringe (Prolia) [...] 800 mg PO TID PRN To lower 12/14/24 01/03/25 History Phosphorus blood-glucose sensor (FreeStyle #6 ea 02/09/25 Unknown [...] 25 mcg #3 ea inhalat.powder (Trelegy Ellipta) calcitriol 0.5 mcg capsule 0.5 mcg PO DAILY supplement 05/31/25 Unknown History potassium chloride 20 mEq 20 meq PO BID potassium 05/04 07/28 Unknown History tablet,extended release(part/cryst) pseudoephedrine-guaifenesin ER 60 1 tab PO BID PRN col d symptoms 06/02/25 Unknown History mg-600 mg tablet,extend release 12hr (Mucinex D) Allergy/AdvReac Type Severity Reaction Status Date / [...] Yes ROS Review of Systems ROS Unobtainable: other Details: Confusion Vital Signs Vital Signs Vital Signs: 06/02/25 04:21 06/02/25 04:45 06/02/25 04:47 Temperature 94.7 F L Temperature Source Axillary Pulse Rate 60 58 L 57 L Respiratory Rate 25 H 24 H 24 H Respiratory Effort Blood Pressure 103/34 L Blood Pressure Mean 57 Pulse Ox 93 100 100 Oxygen Delivery Method Room Air Oxygen Flow Rate (L/min) Fraction of Inspired Oxygen (FIO2) 40 06/02/25 04:52 06/02/25 05:00 06/02/25 05:10 Temperature Temperature Source Pulse Rate 55 L Respiratory Rate 17 Respiratory Effort Short of Breath Blood Pressure 103/45 L Blood Pressure Mean 63 Pulse Ox Oxygen Delivery Method Bi-pap Oxygen Flow Rate (L/min) 40 Fraction of Inspired Oxygen (FIO2) 35 06/02/25 05:15 06/02/25 05:30 06/02/25 05:30 Temperature Temperature Source Pulse Rate 55 L 58 L Respiratory Rate 21 H 20 H Respiratory Effort Blood Pressure 98/37 L 68/56 L Blood Pressure Mean 55 62 Pulse Ox 90 Oxygen Delivery Method Oxygen Flow Rate (L/min) Fraction of Inspired Oxygen (FIO2) 06/02/25 05:38 06/02/25 05:45 06/02/25 06:00 Temperature Temperature Source Pulse Rate 53 L 54 L Respiratory Rate 18 18 Respiratory Effort Blood Pressure 97/37 L 95/41 L 99/35 L Blood Pressure Mean 55 57 55 Pulse Ox Oxygen Delivery Method Oxygen Flow Rate (L/min) Fraction of Inspired Oxygen (FIO2) 06/02/25 06:15 06/02/25 06:30 06/02/25 06:40 Temperature Temperature Source Pulse Rate 54 L 72 55 L Respiratory Rate 16 17 21 H Respiratory Effort Blood Pressure 101/32 L 98/39 L 94/39 L Blood Pressure Mean 53 56 55 Pulse Ox Oxygen Delivery Method Oxygen Flow Rate (L/min) Fraction of Inspired Oxygen (FIO2) 06/02/25 06:45 Temperature Temperature Source Pulse Rate 55 L Respiratory Rate 20 H Respiratory Effort Blood Pressure 98/38 L Blood Pressure Mean 55 Pulse Ox Oxygen Delivery Method Oxygen Flow Rate (L/min) Fraction of Inspired Oxygen (FIO2) Weight Weight: 46.8 kg Body Mass Index (BMI) 17.6 Physical Exam Const no apparent distress; Negative for alert, oriented x3, average body habitus, healthy appearing or well nourished Constitutional Narrative: Very somnolent, upper middle-aged, white female who appears much older than stated age, lying in bed, awakens but easily falls back asleep Orientation / Consciousness: confused, disoriented and lethargic HEENT normocephalic, head/scalp atraumatic and hearing grossly normal bilaterally HEENT Narrative: Mucous membranes are significantly dry, Mallampati is 1, dentition is poor, no thrush, temporal wasting Eyes PERRL; Negative for conjunctivae normal Eyes Narrative: Conjunctiva are mildly pale bilaterally, no scleral icterus Neck supple Neck Narrative: Neck veins are flat, trachea is midline Resp no retractions and no use of accessory muscles Resp Narrative: Tachypnea, few scattered end expiratory wheezes, no signs of extremis Cardio regular rate, regular rhythm, S1 normal heart sound, S2 normal heart sound, no murmurs, no rub, no gallops and no clicks GI normal to inspection, nondistended, normoactive bowel sounds, soft to palpation and non-tender GI Narrative: Scaphoid abdomen Extremity no clubbing, cyanosis or edema Extremity Narrative: Marked decreased lean muscle mass Skin Skin Narrative: Skin is thin Neuro No oriented x3 Neuro Narrative: Spontaneously moves all extremities Speech: Negative for speech normal Psych Psych Narrative: Very flat and minimally interactive at this time Results Lab / Micro Data 06/02/25 04:45 06/02/25 17:51 Labs: Laboratory Results - last 24 hr 06/02/25 04:45: WBC 7.3, RBC 2.95 L, Hgb 8.4 L, Hct 29.2 L, MCV 99.0 D, MCH 28.5, MCHC 28.8 L, RDW Std Deviation 53.7 H, RDW Coeff of Iron 15.4 H, Plt Count 237, MPV 9.9, Immature Gran % (Auto) 0.500, Neut % (Auto) 84.7 H, Lymph % (Auto)6.0 L, Duval % (Auto) 8.0, Eos % (Auto) 0.7, Baso % (Auto) 0.1, Absolute Neuts (auto) 6.2, Absolute Lymphs (auto) 0.44 L, Nucleated RBC % 0.5, Sodium 132 L, Potassium 6.1 H*, Chloride 93 L, Carbon Dioxide 11.6 L, Anion Gap 28 H, BUN 59 H,Creatinine 3.92 H, Estim Creat Clear Calc 10.57 L, Est GFR (MDRD) Non-Af 12 L, BUN/Creatinine Ratio 14.9, Glucose 366 H, Calcium 8.3 06/02/25 05:35: POC Glucose 366 H 06/02/25 05:40: Potassium 6.2 H*, b-Hydroxybutyric mmol/L 8.3 H ABG Data ABG results: ABG 06/02/25 04:55 Specimen Type ROHIT Sample Site Not entered O2 % 40.0 VBG pH 7.07 L* VBG pO2 102 H VBG HCO3 14 L VBG Total CO2 15 L VBG O2 Sat (Calc) 95 H VBG Base Excess -16 L POC Mix VBG pCO2 Pt Tmp 47.5 O2 Delivery Device BiPAP Crit Call To/Read Back Yes Blood Gas Notified Whom Thor Blood Gas Notified Time 04:56:57 Clinical Comments bipap 14. 6. 40% Imaging Radiology Impression Chest X-Ray 06/02/25 05:25 IMPRESSION: Suspect right lung base pneumonia, no interval change. Reading Location: [place] [address] Assessment & Plan Assessment/Plan (1) Acute hyperkalemia: (2) DKA, type 1: (3) Severe malnutrition: (4) Toxic metabolic encephalopathy: PLAN: Plan DKA - There is some confusion on when she last had her insulin pump on reports it was Friday but there is no documentation that it was removed and no discussion with the attending physician - Insulin drip - DKA protocol with serial BMPs/mag/Phos - Once gap is closed x 2 will check beta hydroxybutyrate - Replace insulin pump after DKA is resolved Anion gap metabolic acidosis - Secondary to the above - Monitor per DKA protocol Toxic/metabolic encephalopathy - Secondary to severe acidosis - Treatment as noted above - Should resolve his DKA resolves Hyperkalemia - Secondary to severe acidosis - Should resolve his acidosis corrects - No need for emergent dialysis Malfunctioning dialysis access - Resolved with fistulogram done on 06/01/2025 Chronic hypoxic and hypercapnic respiratory failure/COPD -Avoid any sedating medications - Continue home inhalers - Patient is on 2 to 3 L at baseline chronically and currently on 2 L with oxygen saturations at 99% - Baseline CO2 is elevated - Blood cultures are pending Cachexia/severe malnutrition - Dietitian is following - Patient is underweight with a BMI of 16.3 - Continue supplements - Dietitian is following CAD/essential hypertension/hyperlipidemia - Continue aspirin and Plavix - continue home statin - Hold metoprolol and amlodipine ESRD - 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 - HD per nephrology -Patient does home dialysis at baseline - Nephrology consult Chronic anemia secondary to renal disease - Hemoglobin remains stable DM-1 - Restart insulin pump when out of DKA - Continue outpatient follow-up after discharge with endocrinology DVT prophylaxis - Continue subcu heparin twice daily CODE STATUS - Full code Charges/Coding Visit Charges Inpatient E&M: 97436 Init Hosp L3 06/02/251955 <Electronically signed by Stacy Fontenot DO> Cosigner Signature (if applicable): CC: Dr. Juliet Lujan MD; Dr. Stacy Fontenot DO~ Signed [facility] Work Phone: 1(259) 182-847907-31-2025 Discharge summary Author Shivani Mcrae [facility] Note Date/Time June 02, 2025 7:23 am [facility] Medical Records Department [address] [place] [address] Emergency Department Summary 06/02/25 MR#: [id number] Acct: [id number] Name: SANDY DENG Rep #:[id number] : 1960 64 From: Shivani Wright PCP: Dr. Juliet Lujan MD Status :REG ER Location: ED HPI History of Present Illness Chief Complaint: Shortness of Breath Informant: patient and spouse/S.O. Narrative Narrative: Patient 64-year-old female with history of end-stage renal disease, chronic respiratory failure on 3 L of oxygen at baseline, type 1 diabetes mellitus presenting for confusion and concern for low oxygen. Patient was actually discharged from the hospital yesterday (did receive hemodialysis). She been hospitalized for fluid overload, shortness of breath and fistula stenosis. She underwent fistulogram with angioplasty and had balloon dilation. statesthat she has been very fatigued and weak since being home. She was sleeping with her CPAP on when the power went out. The CPAP switched to battery power however she was not receiving supplemental oxygen. felt that she was difficult to awake and he could not get a pulse ox reading on her. He called EMS. He did switch her to portable oxygen. She was 85-90% on room 2 when EMS arrived. She is brought to the ER for further ration. Patient has no complaints but is quite sleepy. No other complaints or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 Duval % (Auto) 10.0, Eos % (Auto) 3.4, [...] 90.5 H, Lymph % (Auto) 5.5 L, Duval % (Auto) 2.1, Eos % (Auto) 0.3, [...] 8.3 05/28/25 12:05: POC Glucose 229 H 07/26/25 19:04: POC Glucose 313 H Rhythm Strip Rhythm Strip: Sinus Rhythm Rate: 70 Ectopy: None Imaging Radiology Impression Chest X-Ray 05/27/25 19:50 IMPRESSION: Pulmonary findings as above. Reading Location: [facility] Charges/Coding Visit Charges Inpatient E&M: 46182 Init Hosp L3 05/29/25 1148 <Electronically signed by Brielle Turner MD> Cosigner Signature (if applicable): CC: Dr. Juliet Lujan MD~ Signed [facility] Work Phone: 1(114) 365-788307-26-2025 Progress note Author Favian Nicholas [facility] Note Date/Time May 28, 2025 7:[address] [facility] Medical Records Department [address] [place] [address] Progress Note - Hospitalist 05/28/251933 MR#: [id number] Acct: [id number] Name: ISHSANDY A Rep #:[id number] : 1960 64 From: Favian Nicholas DO PCP: Dr. Juliet Lujan MD Status :ADM IN Location: [place] [address] Hospitalist Note Patient has insulin pump in [...] sliding scale. 05/28/251934 <Electronically signed by Favian Nicholas DO> Cosigner Signature (if applicable): CC: ~ Signed [facility] Work Phone: 1(652) 178-354807-26-2025 Progress note Author Khai Bullard [facility] Note Date/Time May 28, 2025 4:[address] [facility] Medical Records Department [address] [place] [address] Progress Note - Hospitalist 05/28/25 1616 MR#: [id number] Acct: [id number] Name: SANDY DENG Rep #:[id number] : 1960 64 From: Khai Bullard DO PCP: Dr. Juliet Lujan MD Status :ADM IN Location: [place] [address] Hospitalist Note Patient was seen and examined today, her fistula was not functioning properly and nephrology was unable to do dialysis today, I talked with Dr. Christy Fontenot about the nonfunctioning fistula, I also told her that I talked with vascular surgery who asked me to obtain a duplex of the fistula, they would not be able to see the patient however until 05/30/2025. Dr. Fontenot requested that I have a tunneled dialysis [...] (if applicable): CC: ~ Signed [facility] Work Phone: 1(656) 525-385207-26-2025 History and physical note Author Favian Nicholas [facility] Note Date/Time May 28, 2025 12:4 8am [facility] Medical Records Department [address] [place] [address] H&P Exam - Hospitalist 05/28/25 0039 MR#: [id number] Acct: [id number] Name: SANDY DENG Rep #:[id number] : 1960 64 From: Favian Nicholas DO PCP: Dr. Juliet Lujan MD Status :ADM IN Location: [facility] [id number]- 1 [facility] - General General Date of Service: 05/28/25 [...] received methylprednisoloneand bronchodilators in the emergency room. [facility] Medical History On home oxygen therapy Wears [...] nodule, solitary Fissure in skin of foot Gordo's sign present Tobacco abuse CKD (chronic kidney [...] Anxiety Depression Atherosclerosis of coronary artery of [place] heart without angina pectoris NSTEMI (non-ST elevated [...] denosumab 60 mg/mL subcutaneous 60 mg subcut [id number] bone health 06/10/24 07/09/24 Rx syringe (Prolia) [...] (Auto) 69.6, Lymph % (Auto) 16.0 L, Du[place] % (Auto) 10.0, Eos % (Auto) 3.4, [...] IMPRESSION: Pulmonary findings as above. Reading Location: [id number] Assessment & Plan Assessment/Plan (1) COPD exacerbation: PLAN: Lungs sound very diminished. Will continue methylprednisolone as well as bronchodilators (2) End stage renal disease: PLAN: On home dialysis. Patient did not complete her dialysis session on the due to pain and concern for infiltration of the venous port. Dr. Fontenot has been contacted by the emergency room [...] at bedside. Charges/Coding Visit Charges Inpatient E&M: 63573 Init Hosp L3 05/28/25 0048 <Electronically signed by Favian Nicholas DO> Cosigner Signature (if applicable): CC: Dr. Juliet Lujan MD; Dr. Favian Nicholas DO~ Signed [facility] Work Phone: 1(902) 647-464107-26-2025 Discharge summary Author Bentley Salazar [facility] Note Date/Time May 28, 2025 12:2 8am [facility] Medical Records Department [address] [place] [address] Emergency Department Summary 05/27/25 MR#: [id number] Acct: [id number] Name: SANDY DENG Rep #:[id number] : 1960 64 From: Bentley Salazar MD PCP: Dr. Juliet Lujan MD Status :REG ER Location: ED [...] stents in the past in her heart. [facility] Medical History On home oxygen therapy Wears [...] nodule, solitary Fissure in skin of foot Gordo's sign present Tobacco abuse CKD (chronic kidney [...] Anxiety Depression Atherosclerosis of coronary artery of [place] heart without angina pectoris NSTEMI (non-ST elevated [...] denosumab 60 mg/mL subcutaneous 60 mg subcut [id number] bone health 06/10/24 07/09/24 Rx syringe (Prolia) [...] in the morning. I discussed with Dr. Fontenot, her child adolescent care. She is in agreement that it would [...] (Auto) 69.6 Lymph % (Auto) 16.0 L Du[place] % (Auto) 10.0 Eos % (Auto) 3.4 [...] IMPRESSION: Pulmonary findings as above. Reading Location: [id number] PROCEDURE: CHEST 1 VIEW (PORTABLE) 05/27/2025 REASON [...] Management Discussion w/another healthcare provider: Hospitalist and Nursing Unit Coordinator (NephrologyDr. Fontenot) Discharge Plan Dx/Rx/DC Orders Clinical Impression: Dyspnea, End-stage renal disease on hemodialysis, Chronic obstructive pulmonarydisease, Intermittent chest pain Disposition Disposition: Acute Care Hospital [facility] What to do if you have Problems For any increased pain, shortness of breath, bleeding, nausea or vomiting, chestpain, or any unexpected problems, contact your Primary Care Provider. Call [email or web address] [facility] ([phone]) or report to the closest Emergency Room. Call 911 if necessary. 05/28/25 0028 <Electronically signed by Bentley Salazar MD> Cosigner Signature (if applicable): CC: Dr. Juliet Lujan MD ~ Signed [facility] Work Phone: 1(249) 372-661407-25-2025 Radiology Diagnostic study [facility]07-25-2025 Discharge summary Author Bentley Salazar [facility] Note Date/Time May 28, 2025 12:2 8am [facility] Medical Records Department [address] [place] [address] Emergency Department Summary 05/27/25 MR#: [id number] Acct: [id number] Name: SANDY DENG Rep #:[id number] : 1960 64 From: Bentley Salazar MD PCP: Dr. Juliet Lujan MD Status :REG ER Location: ED [...] stents in the past in her heart. [facility] Medical History On home oxygen therapy Wears [...] nodule, solitary Fissure in skin of foot Gordo's sign present Tobacco abuse CKD (chronic kidney [...] Anxiety Depression Atherosclerosis of coronary artery of [place] heart without angina pectoris NSTEMI (non-ST elevated [...] denosumab 60 mg/mL subcutaneous 60 mg subcut [id number] bone health 06/10/24 07/09/24 Rx syringe (Prolia) [...] in the morning. I discussed with Dr. Fontenot, her child adolescent care. She is in agreement that it would [...] (Auto) 69.6 Lymph % (Auto) 16.0 L Du[place] % (Auto) 10.0 Eos % (Auto) 3.4 [...] IMPRESSION: Pulmonary findings as above. Reading Location: [id number] PROCEDURE: CHEST 1 VIEW (PORTABLE) 05/27/2025 REASON [...] Management Discussion w/another healthcare provider: Hospitalist and Nursing Unit Coordinator (NephrologyDr. Fontenot) Discharge Plan Dx/Rx/DC Orders Clinical Impression: Dyspnea, End-stage renal disease on hemodialysis, Chronic obstructive pulmonarydisease, Intermittent chest pain Disposition Disposition: Acute Care Hospital [facility] What to do if you have Problems For any increased pain, shortness of breath, bleeding, nausea or vomiting, chestpain, or any unexpected problems, contact your Primary Care Provider. Call [facility] ([phone]) or report to the closest Emergency Room. Call 911 if necessary. 05/28/25 0028 <Electronically signed by Bentley Salazar MD> Cosigner Signature (if applicable): CC: Dr. Juliet Lujan MD ~ Signed [facility] Work Phone: 1(251) 831-639207-06-2025 Radiology Diagnostic study note [facility] Imaging Services [address] [place], [place] [address] Abdomen/Pelvis W IV Cont ONLY MR#: [id number] Acct: [id number] Name: SANDY DENG Rep #: [id number] : 1960 F 64 From: Jose Brown MD PCP: Dr. Juliet Lujan MD Status: REG ER Study:Abdomen/Pelvis W IV Cont ONLY Date of E xam: 05/08/25 Exam# [id number] Ordering Dr: Justin Lara DO PROCEDURE: ABDOMEN/PELVIS [...] 3. Other findings as noted. Reading Location: [id number] CC: Dr. Justin Parisi DO; Dr. Juliet Lujan MD ~ Mold Unloader: Signed [facility] Work Phone: 1(545) 662-950507-06-2025 Radiology Diagnostic study note [facility] Imaging Services [address] [place] [address] Chest PA and Lateral MR#: [id number] Acct: [id number] Name: SANDY DENG Rep #: [id number] : 1960 F 64 From: Jose Brown MD PCP: Dr. Juliet Lujan MD Status: REG ER Study:Chest PA and Lateral Date of Exam: 05/08/25 Exam# [id number] Ordering Dr: Justin Lara DO PROCEDURE: CHEST [...] catheter. 3. Left pleural effusion. Reading Location: [id number] CC: Dr. Justin Parisi DO; Dr. Juliet Lujan MD ~ Mold Unloader: Signed [facility] Work Phone: [phone] Discharge summary Author Milind Heath [facility] Note Date/Time April 09, 2025 1:43p m [facility] Medical Records Department [address] [place] [address] Emergency Department Summary 04/09/25 MR#: [id number] Acct: [id number] Name: SANDY DENG Rep #:[id number] : 1960 64 From: Milind Heath MD PCP: Dr. Juliet Lujan MD Status :REG ER Location: ED [...] 64-year-old woman. She is seen by Dr. Fontenot the child adolescent care. She has history of end-stage renal disease [...] nodule, solitary Fissure in skin of foot Gordo's sign present Tobacco abuse CKD (chronic kidney [...] Anxiety Depression Atherosclerosis of coronary artery [place] heart without angina pectoris NSTEMI (non-ST elevated [...] denosumab 60 mg/mL subcutaneous 60 mg subcut [id number] bone health 06/10/24 07/09/24 Rx syringe (Prolia) [...] follows: Interpretation: Sinus Bradycardia (Rate is 52. [place] to the left. [place] interval is 176 ms. QRS duration 104 [...] on hemodialysis, Atherosclerosis of coronary artery of [place] heart without angina pectoris, Chronic obstructive pulmonary [...] Prolia 60 mg/mL syringe 60 mg subcut [id number] Qty: 1 1RF Patient Comments: Next injection [...] transmitter q 90 days Primary Care Provider: Juliet Lujan Referrals: Christy Fontenot DO [Med Staff - Consulting] - 3-5 Days Juliet Lujan MD [Primary Care Provider] - 1 Week Print Language: [place] Disposition Disposition: Home, Self Care What to do if you have Problems For any increased pain, shortness of breath, bleeding, nausea or vomiting, chestpain, or any unexpected problems, contact your Primary Care Provider. Call [facility] ([phone]) or report to the closest Emergency Room. Call 911 if necessary. 04/09/25 1343 <Electronically signed by Milind Heath MD> Cosigner Signature (if applicable): CC: Dr. Juliet Lujan MD ~ Signed [facility] Work Phone: 1(373) 908-424505-20-2025 Evaluation note* Diagnosis Onset Date Resolution Status [...] exacerbation chronic May 282024 12:21am [facility] Work Phone: 1(250) 756-234205-20-2025 Evaluation note* Diagnosis Onset Date Resolution Status [...] stage renal disease acute J 2024 12:21am Intermittent chest pain acute 2024 12:21am Lung nodule, multiple acute May 12:21am Atherosclerosis of coronary artery of [place] heart without angina pectoris chronic May 28, [...] 28, 2025 12:21am Hypertension chronic May 28, 2 025 12:21am [facility] Work Phone: 1(343) 679-724105-20-2025 Evaluation note* Diagnosis Onset Date Resolution Status [...] stage renal disease acute J 2024 12:21am Intermittent chest pain acute [facility] 2024 12:21am Lung nodule, multiple acute May 12:21am Atherosclerosis of coronary artery of [place] heart without angina pectoris chronic May 28, [...] 28, 2025 12:21am Hypertension chronic May 28, 2 025 12:21am Acute hyperkalemia acute May 052024 7:07am DKA, type 1 acute June 02 7:07am End-stage renal disease on hemodialysis acute June 02, 2025 7:07am Chronic hypoxemic respirator y failure chronic June 02, 2025 7:07am DM type 1 (diabetes mellitus , type 1) chronic June 02, 2025 7:07am [facility] Work Phone: 1(115) 919-385305-20-2025 Evaluation note* Diagnosis Onset Date Resolution Status [...] stage renal disease acute J 2024 12:21am Intermittent chest pain acute J wiley 2024 12:21am Lung nodule, multiple acute May 12:21am Atherosclerosis of coronary artery of [place] heart without angina pectoris chronic May 28, [...] 28, 2025 12:21am Hypertension chronic May 28, 2 025 12:21am Acute hyperkalemia acute May 052024 7:07am Anemia acute June 02 7:07am DKA, type 1 acute June 02 7:07am End-stage renal disease on hemodialysis acute June 02, 2025 7:07am Hypercarbia acute June 02 7:07am Severe malnutrition acute June 02, 2025 7:07am Toxic metabolic encephalopathy acute June 02, 2025 7:07am Chronic hypoxemic respirator y failure chronic June 02, 2025 7:07am DM type 1 (diabetes mellitus , type 1) chronic June 02, 2025 7:07am [facility] Work Phone: 1([phone]) 371-851203-27-2025 Evaluation note* Diagnosis Onset Date Resolution Status Admit Date DM type 1 (diabetes mellitus , type 1) chronic January 27, 2025 8:40am High cholesterol chronic January 272024 8:40am Hypertension chronic January 27, 2025 8:40am Insulin pump titration chronic [facility] 2024 8:40am Osteoporosis chronic January 27, 2025 8:40am Presence of insulin pump chronic January 27, 2025 8:40am Vitamin D deficiency chronic [facility] 2024 8:40am AV fistula acute March 22, 2025 12:59pm Hypercarbia acute May 18 8:42am Lung nodule, multiple acute May 8:42am Chronic hypoxic respiratory failure chronic May 18, 2025 8:42am Chronic obstructive pulmonar y disease chronic May 18, 2025 8:42am ESRD on hemodialysis chronic May 18, 2025 8:42am Hypertension chronic May 18, 8:42am [facility] Work Phone: 1([phone]) 941-170403-27-2025 Evaluation note* Diagnosis Onset Date Resolution Status Admit Date DM type 1 (diabetes mellitus , type 1) chronic January 27, 2025 8:40am High cholesterol chronic January 272024 8:40am Hypertension chronic January 27, 2025 8:40am Insulin pump titration chronic [facility] 2024 8:40am Osteoporosis chronic January 27, 2025 8:40am Presence of insulin pump chronic January 27, 2025 8:40am Vitamin D deficiency chronic [facility] 2024 8:40am AV fistula acute March 22, 2025 12:59pm Hypercarbia acute May 18 8:42am Lung nodule, multiple acute May 8:42am Chronic hypoxic respiratory failure chronic May 18, 2025 8:42am Chronic obstructive pulmonar y disease chronic May 18, 2025 8:42am ESRD on hemodialysis chronic May 18, 2025 8:42am [facility] Work Phone: 1(608) 920-463303-11-2025 Evaluation note* Diagnosis Onset Date Resolution Status Admit Date AV fistula acute January 11 2:55pm DM type 1 (diabetes mellitus , type 1) chronic January 27, 2025 8:40am High cholesterol chronic January 272024 8:40am Hypertension chronic January 27, 2025 8:40am Insulin pump titration chronic [facility] 2024 8:40am Osteoporosis chronic January 27, 2025 8:40am Presence of insulin pump chronic January 27, 2025 8:40am Vitamin D deficiency chronic [facility] 2024 8:40am AV fistula acute March 22, 2025 12:59pm [facility] Work Phone: 1(336) 327-505103-11-2025 Radiology Diagnostic study [facility]03-06-2025 [facility]03-03-2025 Note [facility]02-27-2025 Telephone encounter Note* Telephone Encounter - [place] James - 12/30/2024 11:00 AM EST Called and spoke with the patient in regards to kidney transplant referral, she states she started the process with [facility], and would like to go through the process at that center, as one center is enough to go through testings, and appointments. Advised the patient if she changes her mind, provided her with our office phone number, referral ended, and she verbalized understanding. [place] James [facility]02-27-2025 Miscellaneous Notes* Telephone Encounter - [place] James - 12/30/2024 11:00 AM EST Called and spoke with the patient in regards to kidney transplant referral, she states she started the process with [facility], and would like to go through the process at that center, as one center is enough to go through testings, and appointments. Advised the patient if she changes her mind, provided her with our office phone number, referral ended, and she verbalized understanding. [place] James [facility] Telephone encounter Note * Telephone Encounter - Otilia Portillo Tech - 12/29/2024 10:50 AM EST I spoke with Lita at [facility] who confirmed the patients demographic information and confirmed that the phone number that we have on file for the patient is incorrect. The correct phone number is [phone]. [facility]02-26-2025 Miscellaneous Notes* Telephone Encounter - Otilia Portillo Tech - 12/29/2024 10:50 AM EST I spoke with Lita at [facility] who confirmed the patients demographic information and confirmed that the phone number that we have on file for the patient is incorrect. The correct phone number is [phone]. [facility]2025 [facility]02-21-2025 Telephone encounter Note* Telephone Encounter - [place] James - 12/24/2024 1:28 PM EST Called Sandy Deng without success regarding referral. Voicemail message was left for patient to call our office. [place] James [facility]02-21-2025 Miscellaneous Notes* Telephone Encounter - [place] James - 12/24/2024 1:28 PM EST Called Sandy Deng without success regarding referral. Voicemail message was left for patient to call our office. [place] James [facility] Evaluation note* Diagnosis Onset Date Resolution Status Admit Date Atherosclerosis of coronary artery of [place] heart without angina pectoris chronic December 16, [...] January 03, 2025 11:39pm Parapneumonic effusion acute [facility] 2024 11:39pm Pleural effusion on left [...] 27, 2025 8:40am Insulin pump titration chronic [facility] 2024 8:40am Osteoporosis chronic January 27, 2025 8:40am Presence of insulin pump chronic January 27, 2025 8:40am Vitamin D deficiency chronic [facility] 2024 8:40am AV fistula acute March 22, 2025 12:59pm [facility] Work Phone: 1(183) 540-513501-30-2025 Evaluation note* Diagnosis Onset Date Resolution Status Admit Date ESRD (end stage renal diseas e) on dialysis chronic December 02 2:26pm Atherosclerosis of coronary artery of [place] heart without angina pectoris chronic December 16, [...] January 03, 2025 11:39pm Parapneumonic effusion acute [facility] 2024 11:39pm Pleural effusion on left acute January 03, 2025 11:39pm COPD exacerbation chronic January 032024 11:39pm DM type 1 (diabetes mellitus , type 1) chronic January 03, 2025 11:39pm Hypertension chronic January 03, 2 025 11:39pm Acute hyperkalemia resolved January 03, 2025 11:39pm Chronic hypoxemic respirator y failure resolved January 03, 2025 11:39pm AV fistula acute January 11 2:55pm DM type 1 (diabetes mellitus , type 1) chronic January 27, 2025 8:40am High cholesterol chronic January 272024 8:40am Hypertension chronic January 27, 2025 8:40am Insulin pump titration chronic [facility] 2024 8:40am Osteoporosis chronic January 27, 2025 8:40am Presence of insulin pump chronic January 27, 2025 8:40am Vitamin D deficiency chronic [facility] 2024 8:40am [facility] Work Phone: 1(144) 530-419012-05-2024 Evaluation note* Diagnosis Onset Date Resolution Status [...] 02 2:26pm Atherosclerosis of coronary artery of [place] heart without angina pectoris chronic December 16, [...] January 03, 2025 11:39pm Parapneumonic effusion acute [facility] 2024 11:39pm Pleural effusion on left acute January 03, 2025 11:39pm COPD exacerbation chronic January 032024 11:39pm DM type 1 (diabetes mellitus , type 1) chronic January 03, 2025 11:39pm Hypertension chronic January 03, 11:39pm Acute hyperkalemia resolved January 03, 2025 11:39pm Chronic hypoxemic respirator y failure resolved January 03, 2025 11:39pm AV fistula acute January 11 2:55pm [facility] Work Phone: 1(298) 546-711210-29-2024 History of Present illness Narrative* SYED Buck CNP - 08/31/2024 1:43 PM EDT Patient seen by me at [facility]. Complete documentation including history with assessment and plan were documented in [facility] EMR. This encounter is for billing only. documented in this [facility]10-25-2024 History of Present illness Narrative* SYED Buck CNP - 08/27/2024 1:11 PM EDT Patient seen by me at [facility]. Complete documentation including history with assessment and plan were documented in [facility] EMR. This encounter is for billing only. documented in this [facility]10-23-2024 History of Present illness Narrative* SYED Buck CNP - 08/25/2024 4:04 PM EDT Patient seen by me at [facility]. Complete documentation including history with assessment and plan were documented in [facility] EMR. This encounter is for billing only. documented in this [facility]10-22-2024 Miscellaneous Notes* Care Coordination - SAPNA Ibarra - 08/24/2024 2:22 PM EDT Requested to arrange transport back to [facility]. Met with patient and spouse- patient ok with ambulette. Set up for 3:30 with roundtrip, lavern card accepted the trip. Cost provided to patient 51.80-59.80. Updated patient ,spouse-BO Garcia. Funeral Pre Need Consultant, Carmelina with [facility] and TCC. * Care Coordination - Kimberlee Valdovinos - 08/24/2024 12:45 PM EDT [facility] per TCC request. * Care Coordination - Jesi Bach RN - 08/24/2024 12:38 PM EDT Auth obtained for [facility]. SW messaged to set up transport, CD MANUFACTURING SUPERVISOR messaged to send orders and MAR. * Care Plan - Juanis Rojas RN - 08/24/2024 6:45 AM EDT Problem: Knowledge Deficit Goal: Patient/family/caregiver demonstrates understanding of disease process, treatment plan, medications, and discharge instructions 08/24/2024 0645 by Juanis Rojas RN Outcome: Progressing 08/23/20241918 by Juanis Rojas RN Outcome: Progressing Problem: Potential for Compromised Skin Integrity Goal: Skin Integrity is Maintained or Improved 08/24/2024644 by Juanis Rojas RN Outcome: Progressing 08/23/20241918 by Juanis Rojas RN Outcome: Progressing Goal: Nutritional status is improving 08/24/202445 by Juanis Rojas RN Outcome: Progressing [...] RN - 08/23/2024 1:19 PM EDT Per [facility] liaison Carmelina, will re-submit for MMO [...] EDT Care Management Progress Note Discharge Plan: [facility] This general lithographic worker was tasked to follow this patient through the weekend assisting with dischargeplanning. Chart was reviewed. Messaged [facility] Liaison through secure chat to [...] at baseline and stable to transfer to [facility]. PT/OT recommending IPR. Confirmed with Toll Mechanic Carmelina that Insurance Authorization started for [facility] this am. Will await authorization . Length [...] at baseline and stable for transfer to [facility]. Discharge plan [facility]. Requested PT/OT evaluation today if possible to start insurance auth for return. Length of Stay (Days): 5 GMLOS: No GMLOS Documented * Care Coordination - Alanna Silva RN - 08/16/2024 12:33 PM EDT Care Management Progress Note Patient remains on T3 ICU, pending F transfer - medically stable for [facility]. PT/OT evals pending. Patient is from [facility]. DCP- return vs SNF vs home with [facility], dc planning on going. CM to follow. [...] Intake Outcome: Progressing * Care Plan - Lroe Lezama RN - 08/14/2024 6:17 AM EDT [...] EDT SW coverage for today. Pt from [facility]. SW received SDNJ consult due to pt being unable to answer any questions upon admission due to altered mental status. SW following along with TCC. * Care Coordination - Amira Stark - 08/13/2024 10:20 AM EDT [facility] via Careport per TCC request. Await review and response regarding ability to accept. TCC notified. * Care Coordination - An Werner RN - 08/13/2024 9:56 AM EDT Care Managment Initial Assessment Date: 08/13/2024 Patient Name: Sandy Deng : 1960 Patient Information Source of Information: Patient Chief Embalmer Name/Contact Information: Jose at the bedside. Cognition/Language: Impaired Permission given to speak with patient community relations representative/caregiver as indicated: Yes Confirmation of Payer with patient/family: Yes Payer Name: Medical [place]: No Confirmation of Primary Care Physician: Confirmed PCP Name: Dr. Juliet Lujan Seen in last 2 years?: Yes Primary Caregiver: Self If assistance needed, confirmed caregiver ready, willing and able to care for patient at discharge:Yes Confirmed with: Victor Manuel Deng Living Arrangements Current Residence: House Number of Floors 2 (Lives on the first level.) Number of Entry Steps: 3 Bed/Bath Levels: Facility: Inpatient Rehab Facility Facility Name: [facility] Plan to Return: Yes Lives with: Spouse/significant [...] expects to be discharged to: Return to [facility] to complete rehab. Discharge Planning Actions: Continue to follow Patient's Choice Rights and [employer] and Collaborative Relationships Disclosed as Indicated for Post-Acute Care: Interdisciplinary Team Engagement: Acute Rehab Social Work Referral for: Additional Information: Patient admitted to T3 from [facility] for Altered Mental Status. Confirmed at the bedside with Jose Deng that patient is from [facility] and that the discharge plan if for her to return. Referral placed in [facility]. Patient is currently on continuous EEG [...] improving Outcome: Not Progressing documented in this [facility]10-22-2024 [facility] [employer] 08-24-2024 Hospital course Narrative* William Jarrett DO - 08/24/2024 12:15 PM EDT Images from the original note were not included. Internal Medicine: Med Team Discharge Summary Sandy Marie Ish : 1960 ADMIT DATE: 08/12/2024 DISCHARGE DATE: 08/24/24 PCP: Juliet Lujan Visit Status: Admission Code Status: FULL [...] , and T1DM who was managed at [facility] from 08/12/24-08/24/24 for acute on chronic hypoxic and hypercapnic respiratory failure. Of note, patient was admitted from [facility] recent hospital admission from 07/26/24-08/10/24 when she was managed in the ICU for septic shock/subdural hematoma. While at [facility], patient experienced altered mental status and was found hypoxic in the 80's. She was managed in the ICU with NIV and brought to the general medical floor. While on the F, patient experienced AMS likely due to CO2 narcosis and was brought back to the ICU on NIV. She was stabilzed with improved mentation and ultimately was transferred back to the [facility] and strongly urged to use BiPap at night. She is currently AAOx3 after wearing the Bipap overnight, and is on 4 L of oxygen at 100%. She was ultimately stable upon discharge to [facility]. Disposition: Acute Rehab Activity: up with [...] Breztri Aerosphere 160-9-4.8 MCG/ACT aerosol Generic drug: Zrdfzoo-Xjnchvtwemr-Opincdgfny busPIRone 7.5 MG tablet Commonly known as: [...] Commonly known as: Nitrostat * Omnipod 5 [id number] Intro Gen 5 kit * Omnipod 5 [id number] Pods Gen 5 misc Prolia 60 MG/ML solution prefilled syringe Generic drug: denosumab simvastatin 40 MG tablet Commonly known as: Zocor SPS 15 GM/60ML suspension Generic drug: sodium polystyrene Trelegy Ellipta 200-62.5-25 MCG/ACT aerosol powder Generic drug: Ucqfmhpposu-Jbvzjxvun-Zvolxz * This list has 2 medication(s) that [...] 08/24/2024 1:33 PM EDT documented in this [facility]10-22-2024 History of Present illness Narrative* William Jarrett [...] so no tx. Plan transfer back to [facility] when arrangements in place. 31 (Discharge 81533) minutes spent pvnh-so-exur/floor time coordinating care and/or counseling patient. Savita Denise MD * Joni Monson MD - 08/23/2024 11:24 AM EDT Images from the original note were not included. Nephrology Progress Note Patient: Sandy Deng Room number: [id number] A Date of Admit: 08/12/2024 LOS: 11 days Referring physician: Kemar Adames DO Outpatient Pipe Fitter Welding: Christy Fontenot Assessment/Plan: Mrs. Sandy Deng is a 63 year old female with PMH of CKD 4, DM type 1, HTN, CAD, COPD (3L [id number]), initially presenting with resp distress and delirium, Covid positive. Also found to havepseudomonas and staph aures PNA. She was intubated, now extubated. CT head showed a small right SDH. Consulted for UMA on CKD 4 - follows with Dr Christy Fontenot ([place]). On review of available labs,Cr has been 2.4-2.8, last (04/26) Cr 2.4 eGFR 20, 24 hr clwcucq=8854 mg. On admit, (07/26) Cr 4.56, CRRT [...] care of this patient. Joni Monson MD [facility] ([facility]) Office phone: [phone] Office fax: [phone] 08/23/2024 Subjective Patient seen this am, spouse [...] PO (chewing/swallowing) however monitor acute need for MASTICATOR eval. Per MNT protocol will add 2PM [...] ? loss at baseline such as in jain, clavicle, etc (muscle)) Fluid Accumulation: No significant fluid accumulation (per chart) (BUE pitting, BLE non-pitting perflowsheets) Geological Manager Strength: Not Performed Nutrition Assessment: Pt with [...] removed 2.3L; pt stable for transfer to F after being treated for septic shcok and [...] admit --> 07/28/24: 134# bedscale, 08/07/24:126# bedscale) [place] Body Weight (lbs) (Calculated): 130 lbs [place] Body Weight (Kg) (Calculated): 59 kg % [place] Body Weight (Calculated): 83.1 % BMI (kg/m2) [...] Renae Squires RD Contact: Secure chat or *[phone] * Shanti Bianchi NP - 08/23/2024 9:26 AM EDT Images from the original note were not included. [facility] Wound Care Progress Note Sandy Deng [...] so not being treated; urology consulted. 35 (Gteajbcitq 02963) minutes spent gtrk-uo-kexe/floor time coordinating care and/or counseling patient. Savita [...] (3 days 10mg, 3 days 5mg) Anticipated [place] Medications (ICU initiated) or Dose Changes and [...] original note were not included. OCCUPATIONAL THERAPY [facility] Treatment Note Name/MRN: Sandy Deng ([id number]) Date of : 1960 Age: 63 y.o. Room/Bed: T3-304/T3-304 A Discharge Recommendation: IP Rehab Other: Continue to assess pending progress. Prior Level of Function Prior Level of ADL Function: Independent Prior Level of Mobility: Independent; Device: Front wheeled walker Prior Level of Transfers: Independent Pt requires assistance at [facility], information of independent is [...] original note were not included. PHYSICAL THERAPY [facility] Re-Evaluation Name/MRN: Sandy Deng ([id number]) Evaluation Date: 08/22/2024 Date of : 1960 [...] Diagnosis Date COPD (chronic obstructive pulmonary disease) ([facility]) Diabetic neuropathy ([facility]) Hyperlipidemia Myocardial infarct ([facility]) Stage 4 chronic kidney disease ([facility]) Type 1 diabetes ([facility]) Past Surgical History: Past Surgical History: Procedure Laterality Date CORONARY ANGIOPLASTY WITH STENT PLACEMENT CORONARY ANGIOPLASTY WITH STENT PLACEMENT Admission Diagnosis: Patient Active Problem List Diagnosis Date Noted Anxiety disorder due to medical condition 08/12/2024 Atherosclerosis of coronary artery 08/12/2024 Chest pain 08/12/2024 Chronic constipation 08/12/2024 Cigarette smoker 08/12/2024 Adrian's sign present 08/12/2024 Depressive disorder 08/12/2024 Diabetic polyneuropathy (CMS/HCC) ([facility]) 08/12/2024 Dizziness 08/12/2024 Gastroparesis 08/12/2024 Hypoglycemia 08/12/2024 Injury of kidney 08/12/2024 Intermittent palpitations 08/12/2024 Intractable vomiting with nausea 08/12/2024 Respiratory failure with hypoxia ([facility]) 08/12/2024 Skin lesion of foot 08/12/2024 Hypercapnic respiratory failure ([facility]) 08/12/2024 SDH (subdural hematoma) ([facility]) 07/26/2024 COPD (chronic obstructive pulmonary disease) ([facility]) 07/26/2024 Type 1 diabetes mellitus with kidney complication ([facility]) 07/26/2024 Myocardial infarction ([facility]) 07/26/2024 Hyperlipidemia 07/26/2024 Diabetic neuropathy associated with type 1 diabetes mellitus ([facility]) 07/26/2024 Stage 4 chronic kidney disease ([facility]) 07/26/2024 Acute renal failure ([facility]) 07/26/2024 Anemia 07/26/2024 Hypocalcemia 07/26/2024 Multiple pulmonary nodules 05/17/2024 Underweight 04/14/2024 Solitary pulmonary nodule 02/06/2024 Wheezing 10/29/2023 History of coronary artery stent placement 02/04/2018 Nicotine dependence 01/08/2017 Hypertension 01/08/2017 Diabetic ketoacidosis ([facility]) ([facility]) 12/30/2012 Medical Precautions: No active isolations Proper [...] Responsibilities: Independent Receives Help From: Spouse Active Machine Printer: N/A Prior Level of Function Prior Level [...] Raw Score (No Stairs) : 14 [facility] Score: Transferred to chair/commode Plan Pt would [...] of Care supervision is transferred to a [facility] Physical Therapist. Goals [...] none Objective: Last Vitals: BP MAP 126/53 (08/22/24 0408) 73 (08/22/24407) Arterial BP MAP (na) (08/13/24 [...] Normal [] Scar/Lesion/Mass Inspection of teeth/lips/gums Dentition: [][place] Teeth []Dentures Lips/Gums: [x]Intact []Lesion Present Mucosa: [x][place] []Moist []Dry Neck: External Appearance Overall Appearance: [...] 0825 08/21/24 1432 PHART 7.274* 7.286* 7.373 EEZ3UYM 59.2* 59.5* 51.3* PO2ART 113.3* 88.7 85.9 VHM3IZM 26.8* 27.7* 29.2* D9JYZUDZ 40% Oxygen CPAP CPAP Lactic Acid: No [...] DVT Prophylaxis: Heparin subcutaneous Disposition: Transfer to [facility] Cosigned by Kemar Adames DO at 08/22/2024 3:38 PM EDT Associated attestation - Kemar Adames DO - 08/22/2024 3:38 PM EDT I have personally performed a vblx-ab-nahl diagnostic evaluation on this patient on date of qaimihp65/20/24. History, labs, imaging studies, and electronic medical record have been reviewed by me. This note documented by the []Critical Care Fellow [x]warehouse stocker []TONJA reflects my history, exam, and medical [...] MS and hypercapnea. Change Lantus 5. Hlog /04/08 DC johnson Flomax Monitor for retention In [...] days Referring physician: Savita Denise MD Outpatient Pipe Fitter Welding: Christy Fontenot Assessment/Plan: Mrs. Sandy Deng is a 63 year old female with PMH of CKD 4, DM type 1, HTN, CAD, COPD (3L [id number]), initially presenting with resp distress and delirium, Covid positive. Also found to havepseudomonas and staph aures PNA. She was intubated, now extubated. CT head showed a small right SDH. Consulted for UMA on CKD 4 - follows with Dr Christy Fontenot ([place]). On review of available labs,Cr has been 2.4-2.8, last (04/26) Cr 2.4 eGFR 20, 24 hr ezflspq=4986 mg. On admit, (07/26) Cr 4.56, CRRT [...] exacerbation: on prednisone taper -dispo: [facility], not [facility] today Will follow along as directed. Thank you for allowing us to participate in the care of this patient. Karyn Jones MD [facility] ([facility]) Pager [phone] Office phone: [phone] Office fax: [phone] 08/21/2024 Subjective Patient seen this am. She [...] (08/21/24599) 78 (08/21/24599) Arterial BP MAP (na) (08/13/2432) Temp 36.3 C (97.3 F) (08/21/24 0400) Pulse 58 (08/21/24599) Resp 17 (08/21/24599) SpO2 [...] Inspection of teeth/lips/gums (NIV mask inplace)_ Dentition: [][place] Teeth []Dentures Lips/Gums: []Intact []Lesion Present Mucosa: [][place] []Moist []Dry Neck: External Appearance Overall Appearance: [...] 1558 08/20/24 2121 PHART 7.244* 7.242* 7.274* XRL2BVS 68.4* 67.9* 59.2* PO2ART 36.2* 101.2* 113.3* RGH2ZWS 28.9* 28.6* 26.8* F1PQTLEW Bi-PAP 40% Oxygen 40% Oxygen Lactic Acid: [...] PM EDT I have personally performed a outx-cp-visr diagnostic evaluation on this patient on date of gmfbkuv32/19/24. History, labs, imaging studies, and electronic medical record have been reviewed by me. This note documented by the []Critical Care Fellow [x]warehouse stocker []TONJA reflects my history, exam, and medical [...] days Referring physician: Savita Denise MD Outpatient Pipe Fitter Welding: Christy Fontenot Assessment/Plan: Mrs. Sandy Deng is a 63 year old female with PMH of CKD 4, DM type 1, HTN, CAD, COPD (3L [id number]), initially presenting with resp distress and delirium, Covid positive. Also found to havepseudomonas and staph aures PNA. She was intubated, now extubated. CT head showed a small right SDH. Consulted for UMA on CKD 4 - follows with Dr Christy Fontenot ([place]). On review of available labs,Cr has been 2.4-2.8, last (04/26) Cr 2.4 eGFR 20, 24 hr bynjgwi=0694 mg. On admit, (07/26) Cr 4.56, CRRT [...] exacerbation: on prednisone taper -dispo: [facility] today Will follow along as directed. Thank you for allowing us to participate in the care of this patient. Case discussed with primary team. Dr. Jones will be covering this weekend. Joni Monson MD [facility] ([facility]) Office phone: [phone] Office fax: [phone] 08/20/2024 Subjective Patient seen this am, spouse [...] from the original note were not included. [facility] Wound Care Progress Note Sandy Deng [...] prep barrier wipe daily and PRN, leave FAST FOOD CASHIER Nutritional support Wound Care to follow Recommend to follow up at [facility] Outpatient wound care center after [...] , Janell Booker MD,2 Units at 08/19/24 1845 Insulin Lispro (Humalog) injection 6 Units, 6 Units, SubCUTAneous, TID Sandy ESTEVEZ DO ipratropium-albuterol (Duo-Neb) 0.5-2.5 mg/3 mL nebulizer solution 3 mL, 3 mL, Nebulization, 4x daily PRN, Glenda Ma MD lisinopril tablet 2.5 mg, 2.5 mg, Oral, Daily, Janell Booker MD, 2.5 mg at 08/19/24 0920 metoprolol tartrate (Lopressor) tablet 25 mg, 25 [...] Daily PRN, Janell Booker MD sodium chloride ([place]) 0.65 % nasal spray 1 spray, 1 [...] would like to meet with SW or geriatric case manager to discuss insurance coverage for [...] use BiPAP overnight. Pulmonary following. 35 (Subsequent 63703) minutes spent nlrh-lz-ctqp/floor time coordinating care and/or counseling patient. Savita Denise MD * Joni Monson MD - 08/19/2024 3:19 PM EDT Images from the original note were not included. Nephrology Progress Note Patient: Sandy Deng Room number: [id number] A Date of Admit: 08/12/2024 LOS: 7 days Referring physician: Kemar Adames DO Outpatient Pipe Fitter Welding: Christy Fontenot Assessment/Plan: Mrs. Sandy Deng is a 63 year old female with PMH of CKD 4, DM type 1, HTN, CAD, COPD (3L M8vnutkdmp), initially presenting with resp distress and delirium, Covid positive. Also found to havepseudomonas and staph aures PNA. She was intubated, now extubated. CT head showed a small right SDH. Consulted for UMA on CKD 4 - follows with Dr Christy Fontenot ([place]). On review of available labs,Cr has been 2.4-2.8, last (04/26) Cr 2.4 eGFR 20, 24 hr nissohz=7421 mg. On admit, (07/26) Cr 4.56, CRRT [...] care of this patient. Joni Monson MD [facility] ([facility]) Office phone: [phone] Office fax: [phone] 08/19/2024 Subjective Patient seen this am afternoon. [...] hours ending 08/19/24 1519 [REMOVED] Urethral Catheter Uyezrmpt-bhm-Ztatkq (mL): 25 mL FIO2 needs: on 4 [...] original note were not included. PHYSICAL THERAPY [facility] Treatment Note Name/MRN: Sandy Deng ([id number]) Date of : 1960 Age: 63 y.o. Room/Bed: W7724/W7724 A Discharge Recommendation: IP Rehab Equipment Needed: [...] time needed with all mobility and very [place].Noted wet, non-productive cough and tends to fatigue [...] within last 24 hours- BMP: Recent Labs 08/17/2422208/18/247 08/19/24 0550 NA 132* 130* 126* K [...] Units, 8 Units, SubCUTAneous, TID WC, William Jarrett DO, 8 Unitsat 08/19/24 1405 [...] Daily PRN, Janell Booker MD sodium chloride ([place]) 0.65 % nasal spray 1 spray, 1 [...] would like to meet with SW or geriatric case manager to discuss insurance coverage for [...] PT and OT recommended IPR on discharge. solution manager following Cosigned by Saviat Denise MD at 08/19/2024 10:00 PM EDT [...] as directed by pulmonary service. 35 (Subsequent 38718) minutes spent yeyp-ib-eezf/floor time coordinating care and/or counseling patient. Savita [...] liquids prior to discharge. [facility] a Soft and Bite Sized Diet with Mildly Thick Liquids. RN and pt subjective denying issues with swallowing at this time. Continue to monitor need for MASTICATOR assessment given rec ent recommendations. 2. Will [...] flowsheets) (BUE pitting, BLE non-pitting per flowsheets) Geological Manager Strength: Not Performed Nutrition Assessment: pt with previously reviewed PMH who remains admitted to the ICU after she initially presented to [facility] on 08/12/24 in respiratory distress, pt was d/c to [facility] following admit and was found with altered mentation, NC was taken off and pulse ox was 80%, pt was brought to [facility] ED for assessment, in theED mental status [...] yesterday with recs to d/c back to [facility], wound care following due to left 4th toe abrasion, noted pt has been deemed stable for transfer to [facility] since 08/14. In terms of nutrition [...] prior [facility] [...] admit --> 07/28/24: 134# bedscale, 08/07/24:126# bedscale) [place] Body Weight (lbs) (Calculated): 130 lbs [place] Body Weight (Kg) (Calculated): 59 kg % [place] Body Weight (Calculated): 83.1 % BMI (kg/m2) [...] determine Lidia Rojas RD Contact: available via Grokr chat or *[phone] * Joni Monson MD - 08/18/2024 12:55 PM EDT Images from the original note were not included. Nephrology Progress Note Patient: Sandy Deng Room number: T3-321/T3-321 A Date of Admit: 08/12/2024 LOS: 6 days Referring physician: Kemar Adames DO Outpatient Pipe Fitter Welding: Christy Fontenot Assessment/Plan: Mrs. Sandy Deng is a 63 year old female with PMH of CKD 4, DM type 1, HTN, CAD, COPD (3L V3qmgaqgoi), initially presenting with resp distress and delirium, Covid positive. Also found to havepseudomonas and staph aures PNA. She was intubated, now extubated. CT head showed a small right SDH. Consulted for UMA on CKD 4 - follows with Dr Christy Fontenot ([place]). On review of available labs,Cr has been 2.4-2.8, last (04/26) Cr 2.4 eGFR 20, 24 hr kyuluwh=4389 mg. On admit, (07/26) Cr 4.56, CRRT [...] discussed with primary team. Joni Monson MD [facility] ([facility]) Office phone: [phone] Office fax: [phone] 08/18/2024 Subjective Patient seen this am during [...] ml Net -3250 ml [REMOVED] Urethral Catheter Krdcyscw-hit-Zekxrp (mL): 25 mL FIO2 needs: on 4 [...] with small pleural effusions. * Mayra Almeida, SHORTS SIFTER - OPTOELECTRONICS ENGINEER - 08/18/2024 12:05 PM EDT Images from the original note were not included. [facility] Wound Care PROGRESS Note Sandy Deng [...] tablet by mouth 2 times daily. Cholecalciferol ([facility] Vitamin D3) 25 MCG (1000 [...] DAY Margareth Peck 200-62.5-25 MCG/ACT aerosol powder REVIEW OF SYSTEMS [...] prep barrier wipe daily and PRN, leave FAST FOOD CASHIER Nutritional support Wound Care to follow Recommend to follow up at [facility] Outpatient wound care center after [...] and subdural hematoma who presents to the [facility] respiratory distress. Patient had been recently discharged 2 days prior to [facility], and was found altered, [...] Normal [] Scar/Lesion/Mass Inspection of teeth/lips/gums Dentition: [x][place] Teeth []Dentures Lips/Gums: [x]Intact []Lesion Present Mucosa: [x][place] (noted dry blood in mouth) []Moist [x]Dry [...] 0223 08/17/24 0833 08/17/24 1133 08/17/24 1635 08/17/24 20208/18/24416 GLUCOSE 362* -- -- -- -- 152* [...] 15.7* ABGs: No results for input(s): PHART, GYX2VCE, PO2ART, YZY4DWV, SO2ART, V6WRQMKM in thelast 72 hours. Lactic Acid: No [...] and OT recommended IPR on discharge, contacted geriatric case manager for prior auth timeline [facility] Spoke with pt who would like to meet with SW or geriatric case manager to discuss insurance coverage for dialysis before pt is discharged from hospital. Encourage ambulation GI Prophylaxis: Pantoprazole PO DVT Prophylaxis: Heparin subcutaneous Disposition: Transfer to [facility], [facility] auth [facility], expect it to take 2-3 days Cosigned by Kemar Adames DO at 08/18/2024 8:23 PM EDT Associated attestation - Kemar Adames DO - 08/18/2024 8:23 PM EDT I have personally performed a hewm-pq-cjxp diagnostic evaluation on this patient on date of voufuwz56/16/24. History, labs, imaging studies, and electronic medical record have been reviewed by me. This note documented by the []Critical Care Fellow [x]warehouse stocker []TONJA reflects my history, exam, and medical [...] original note were not included. PHYSICAL THERAPY [facility] Initial Evaluation Name/MRN: Sandy Deng ([id number]) Evaluation Date: 08/17/2024 Date of : 1960 [...] tasks. Pt present and states pt at [facility] for one night and had respiratory event. Was not seen for therapies there yet but plan to go back for continued therapies. Pain: Pt denies any current pain. Past Medical History: Past Medical History: Diagnosis Date COPD (chronic obstructive pulmonary disease) ([facility]) Diabetic neuropathy ([facility]) Hyperlipidemia Myocardial infarct ([facility]) Stage 4 chronic kidney disease ([facility]) Type 1 diabetes ([facility]) Past Surgical History: Past Surgical History: Procedure Laterality Date CORONARY ANGIOPLASTY WITH STENT PLACEMENT CORONARY ANGIOPLASTY WITH STENT PLACEMENT Admission Diagnosis: Patient Active Problem List Diagnosis Date Noted Anxiety disorder due to medical condition 08/12/2024 Atherosclerosis of coronary artery 08/12/2024 Chest pain 08/12/2024 Chronic constipation 08/12/2024 Cigarette smoker 08/12/2024 Adrian's sign present 08/12/2024 Depressive disorder 08/12/2024 Diabetic polyneuropathy (CMS/HCC) ([facility]) 08/12/2024 Dizziness 08/12/2024 Gastroparesis 08/12/2024 Hypoglycemia 08/12/2024 Injury of kidney 08/12/2024 Intermittent palpitations 08/12/2024 Intractable vomiting with nausea 08/12/2024 Respiratory failure with hypoxia ([facility]) 08/12/2024 Skin lesion of foot 08/12/2024 Hypercapnic respiratory failure ([facility]) 08/12/2024 SDH (subdural hematoma) ([facility]) 07/26/2024 COPD (chronic obstructive pulmonary disease) ([facility]) 07/26/2024 Type 1 diabetes mellitus with kidney complication ([facility]) 07/26/2024 Myocardial infarction ([facility]) 07/26/2024 Hyperlipidemia 07/26/2024 Diabetic neuropathy associated with type 1 diabetes mellitus ([facility]) 07/26/2024 Stage 4 chronic kidney disease ([facility]) 07/26/2024 Acute renal failure ([facility]) 07/26/2024 Anemia 07/26/2024 Hypocalcemia 07/26/2024 Multiple pulmonary nodules 05/17/2024 Underweight 04/14/2024 Solitary pulmonary nodule 02/06/2024 Wheezing 10/29/2023 History of coronary artery stent placement 02/04/2018 Nicotine dependence 01/08/2017 Hypertension 01/08/2017 Diabetic ketoacidosis ([facility]/HCC) ([facility]) 12/30/2012 Medical Precautions: No active isolations Proper [...] Responsibilities: Independent Receives Help From: Spouse Active Machine Printer: N/A Prior Level of Function Prior Level [...] 8 Quality of gait: antalgic, shuffling, narrow JARDE, slow amanda, path deviations, instability through all [...] of Care supervision is transferred to a [facility] Therapy Services Physical Therapist. Goals and/or treatment plan was established in collaboration with patient/family/other representatives. Cosigned by Maranda Greer PT at 08/17/2024 3:14 PM EDT * Jamey Muro, OT - 08/17/2024 10:28 AM EDT Images from the original note were not included. OCCUPATIONAL THERAPY [facility] Initial Evaluation Name/MRN: Sandy Deng ([id number]) Evaluation Date: 08/17/2024 Date of : 1960 Admission Date: 08/12/2024 12:53 PM Age: 63 y.o. Room/Bed: T3-321/T3-321 A Discharge Recommendation: IP Rehab Other: Continue to assess pending progress. Assessment IMPRESSION: Pt presented with respiratory failure, hypoxia, and AMS upon admission. Pt had recent hospital admission for septic shock and subdural hematoma, pt went to [facility] for 2 days and thenended up in ER for this admission. Pt is independent prior to first admission and requires assistance prior to this admission at [facility]. Per pt and , therapy [...] end of session with call light [facility], chair alarm on, and RN notified. Pain: [...] 08/12/2024 Chronic constipation 08/12/2024 Cigarette smoker 08/12/2024 Gordo's sign present 08/12/2024 Depressive disorder 08/12/2024 Diabetic polyneuropathy ([facility]) ([facility]) 08/12/2024 Dizziness 08/12/2024 Gastroparesis 08/12/2024 Hypoglycemia 08/12/2024 Injury of kidney 08/12/2024 Intermittent palpitations 08/12/2024 Intractable vomiting with nausea 08/12/2024 Respiratory failure with hypoxia ([facility]) 08/12/2024 Skin lesion of foot 08/12/2024 Hypercapnic respiratory failure ([facility]) 08/12/2024 SDH (subdural hematoma) ([facility]) 07/26/2024 COPD (chronic obstructive pulmonary disease) ([facility]) 07/26/2024 Type 1 diabetes mellitus with kidney complication ([facility]) 07/26/2024 Myocardial infarction ([facility]) 07/26/2024 Hyperlipidemia 07/26/2024 Diabetic neuropathy associated with type 1 diabetes mellitus ([facility]) 07/26/2024 Stage 4 chronic kidney disease ([facility]) 07/26/2024 Acute renal failure ([facility]) 07/26/2024 Anemia 07/26/2024 Hypocalcemia 07/26/2024 Multiple pulmonary nodules 05/17/2024 Underweight 04/14/2024 Solitary pulmonary nodule 02/06/2024 Wheezing 10/29/2023 History of coronary artery stent placement 02/04/2018 Nicotine dependence 01/08/2017 Hypertension 01/08/2017 Diabetic ketoacidosis ([facility]) ([facility]) 12/30/2012 Medical Precautions: No active isolations Proper [...] Responsibilities: Independent Receives Help From: Spouse Active Machine Printer: N/A Prior Level of Function Prior Level of ADL Function: Independent Prior Level of Mobility: Independent; Device: Front wheeled walker Prior Level of Transfers: Independent Pt requires assistance at [facility], information of independent is baseline prior to [...] of Care supervision is transferred to a [facility] Therapy Services Occupational Therapist. Goals and/or treatment plan was established in collaboration with patient/family/other representatives. * Radha Kelley RCP - 08/17/2024 9:48 AM EDT [facility] Respiratory Care Department Progress Note As [...] and subdural hematoma who presents to the [facility] respiratory distress. Patient had been recently discharged 2 days prior to [facility], and was found altered, [...] of teeth/lips/gums Lips/Gums: [x]Intact []Lesion Present Mucosa: [x][place] []Moist []Dry Neck: External Appearance Overall Appearance: [...] 08/15/24 1134 08/15/24 1706 08/15/24 2100 08/16/24 03308/16/24 0829 08/16/24 1238 08/16/24 1710 08/16/24 2004 08/17/24222 GLUCOSE 270* -- -- -- -- 362* -- -- -- -- 152* POCGLU -- 302* 340* 368* 344* -- 405* 350* 163* 174* -- Procal: No results for input(s): PROCAL in the last 72 hours. CBC: Recent Labs 08/15/24 0623 08/16/24 0339 08/17/24 0223 WBC 5.0 4.8 4.5 HGB 9.5* 9.7* 9.1* HCT 30.3* 30.0* 28.7* PLT 90* 104* 105* MCV 92.4 91.5 91.7 RDW 15.9* 15.8* 15.8* ABGs: No results for input(s): PHART, EOO9WSX, PO2ART, CID0IXT, SO2ART, Q0ZTCQDE in thelast 72 hours. Lactic Acid: No [...] would like to meet with SW or geriatric case manager to discuss insurance coverage for dialysis before pt is discharged from hospital. Encourage ambulation. GI Prophylaxis: Pantoprazole PO DVT Prophylaxis: Heparin subcutaneous Disposition: Transfer to [facility] Cosigned by Kemar Adames DO at 08/17/2024 7:07 PM EDT Associated attestation - Kemar Adames DO - 08/17/2024 7:07 PM EDT I have personally performed a axok-zb-rgek diagnostic evaluation on this patient on date of vtgafdf78/15/24. History, labs, imaging studies, and electronic medical record have been reviewed by me. This note documented by the []Critical Care Fellow [x]warehouse stocker []TONJA reflects my history, exam, and medical [...] days Referring physician: Kemar Adames DO Outpatient Pipe Fitter Welding: Christy Fontenot DO ASSESSMENT/PLAN: #Nonoliguric MUA, dialysis dependent: QUALITY CONTROL OPERATOR dependent since 07/26 last admit. Baseline Cr had been 2.4-2.8, last (04/26) Cr 2.4 eGFR 20, 24 hr fdifipu=9217 mg. -Suspected ATN in setting of infection/HD [...] Skin: warm and dry, no rash Access: [facility] TDC with clean dressing DATA: LABS: Recent [...] 231 08/12/2024 Lab Results Component Value Date [id number] 932 (H) 08/12/2024 FOLATE 10.8 08/12/2024 Lab [...] LABFUNG IMAGING: POCT glucose meter Performed by: [facility], [address] [place] [id number] CLIA ID: [id number] POCT glucose meter Performed by: [facility], [address] [place] [address] CLIA ID: [id number] Signed: Jose Carlos Medrano MD Nephrology [facility] ([facility]) Pager: [phone] Office Office * Sherri Domingo, SHORTS SIFTER - OPTOELECTRONICS ENGINEER - 08/16/2024 10:32 AM EDT Images from the original note were not included. [facility] Wound Care PROGRESS Note Sandy Deng [...] prep barrier wipe daily and PRN, leave FAST FOOD CASHIER Nutritional support Wound Care to follow Recommend to follow up at [facility] Outpatient wound care center after [...] from the original note were not included. [facility] - Infectious Diseases Attending [...] MICU Attending: Dr. Adames Subjective: Hospital Summary: aSndy Deng is a 63-year-old female with past medical history significant for COPD on 4L NC at baseline, ESRD on HD, T1DM, and recent admission to ICU for septic shock and subdural hematoma who presents to the [facility] respiratory distress. Patient had been recently discharged 2 days prior to [facility], and was found altered, [...] possible contaminant with staph epi (positive in 1 cultures). Nephro followingESRD on HD, improved acidosis [...] kg/m . I/O: 08/15 0700 - 08/16 659 In: 418 [P.O.:318; I.V.:100] [...] Normal [] Scar/Lesion/Mass Inspection of teeth/lips/gums Dentition: [][place] Teeth []Dentures Lips/Gums: [x]Intact []Lesion Present Mucosa: [x][place] []Moist []Dry Neck: External Appearance Overall Appearance: [...] last 24 hours- BMP: Recent Labs 08/14/24 04008/15/2462208/16/24 0339 NA 130* 130* 131* K 3.5 [...] hours. CBC: Recent Labs 08/14/24 0404 08/15/24 0608/16/24 0339 WBC 5.2 5.0 4.8 HGB 9.2* 9.5* 9.7* HCT 28.7* 30.3* 30.0* PLT 79* 90* 104* MCV 91.1 92.4 91.5 RDW 16.4* 15.9* 15.8* ABGs: Recent Labs 08/13/24 0658 PHART 7.291* API6JNM 49.4* PO2ART 84.7 YFL1RBQ 23.3 M8ACRHMK 30% Oxygen Lactic Acid: Recent Labs 08/13/24 [...] would like to meet with SW or geriatric case manager to discuss insurance coverage for dialysis before pt is discharged from hospital. GI Prophylaxis: Pantoprazole PO DVT Prophylaxis: SCDs, subcutaneous heparin Disposition: Transfer to [facility] Cosigned by Kemar Adames DO at 08/16/2024 8:35 PM EDT Associated attestation - Kemar Adames DO - 08/16/2024 8:35 PM EDT I have personally performed a gtcg-xw-alfy diagnostic evaluation on this patient on date of tmmukzy12/14/24 . History, labs, imaging studies, and electronic medical record have been reviewed by me. This note documented by the [x]warehouse stocker []TONJA reflects my history, exam, and medical [...] days Referring physician: Elizabeth Tyler MD Outpatient Pipe Fitter Welding: Dr. Christy Fontenot Assessment / Plan 63 y.o. female with a past medical history of CKD 4, DM type 1, HTN, CAD, COPD (3L O2 baseline), recent admit 07/26-08/10 for septic shock iso PsA/staph PNA and coronavirus infection (stay further c/b UMA requiring HD and SDH) who was admitted on 08/12/2024 with AMS, hypoxia, admitted to ICU with hypercapneic respiratory failure. 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 Baseline Cr had been 2.4-2.8, last (04/26) Cr 2.4 eGFR 20, 24 hr uibosuq=3807 mg. -Suspected ATN in setting of infection/HD [...] last admit -On vanc/zosyn -ID evaluating Access: [facility] [place] 07/29 Recommendations: -No acute indications for HD, next treatment tomorrow 08/16 -Repeat lasix 100 mg IV today -Will follow pancytopenia workup per primary, using citrate locks for HD line pending HIT testing -Renal function panel daily Thank you for allowing us to participate in the care of this patient. Please call with any questions. Saroj Gaffney MD [facility] ([facility]) Office phone: [phone] Office fax: [phone] Pager: [phone] 08/15/24 Subjective No acute events. Fairly modest response to high dose lasix yesterday and solutes uptrending. Still short of breath today and with some LE edema. Past Medical History Past Medical History: Diagnosis Date COPD (chronic obstructive pulmonary disease) ([facility]) Diabetic neuropathy ([facility]) Hyperlipidemia Myocardial infarct ([facility]) Stage 4 chronic kidney disease (HCC) Type 1 diabetes ([facility]) Medications Scheduled Meds:aspirin, 81 mg, Oral, Daily [...] and subdural hematoma who presents to the [facility] respiratory distress. Patient had been recently discharged 2 days prior to [facility], and was found altered, [...] Resp 16 (08/15/24 0000) SpO2 100 % (08/15/24) Weight 61.5 kg [...] Normal [] Scar/Lesion/Mass Inspection of teeth/lips/gums Dentition: [][place] Teeth []Dentures Lips/Gums: [x]Intact []Lesion Present Mucosa: [x][place] []Moist []Dry Neck: External Appearance Overall Appearance: [...] 2333 08/13/24 0658 PHART -- -- 7.291* CJZ1STF -- -- 49.4* PO2ART -- -- 84.7 KLK8TTP -- -- 23.3 F9YMIFTM Bi-PAP 30% Oxygen 30% Oxygen Lactic Acid: [...] PO DVT Prophylaxis: SCDs Disposition: Transfer to [facility] Cosigned by Elizabeth Tyler MD at 08/15/2024 1:22 PM EDT Associated attestation - Elizabeth Tyler MD - 08/15/2024 1:22 PM EDT I have personally performed a jrbq-uh-miqc diagnostic evaluation on this patient on date of mgovqez12/13/24. History, labs, imaging studies, and electronic medical record have been reviewed by me. This note documented by the [x]warehouse stocker []TONJA reflects my history, exam, and medical [...] days Referring physician: Elizabeth Tyler MD Outpatient Pipe Fitter Welding: Dr. Christy Fontenot Assessment / Plan 63 y.o. female with a past medical history of CKD 4, DM type 1, HTN, CAD, COPD (3L O2 baseline), recent admit 07/26-08/10 for septic shock iso PsA/staph PNA and coronavirus infection (stay further c/b UMA requiring HD and SDH) who was admitted on 08/12/2024 with AMS, hypoxia, admitted to ICU with hypercapneic respiratory failure. 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 Baseline Cr had been 2.4-2.8, last (04/26) Cr 2.4 eGFR 20, 24 hr pcffmii=6295 mg. -Suspected ATN in setting of infection/HD [...] last admit -On vanc/zosyn -ID evaluating Access: [facility] 07/29 Recommendations: -No acute indications for HD, monitoring for recovery -Lasix challenge today 100 mg IV x1 -Will follow pancytopenia workup per primary, using citrate locks for HD line pending HIT testing -Renal function panel daily Thank you for allowing us to participate in the care of this patient. Please call with any questions. Saroj Gaffney MD [facility] ([facility]) Office phone: [phone] Office fax: [phone] Pager: [phone] 08/14/24 Subjective No acute events. No issues with HD yesterday, UF 2.5L. Patient somewhat more awake/alert today. Slight shortness of breath and wheezing. No other complaints. Past Medical History Past Medical History: Diagnosis Date COPD (chronic obstructive pulmonary disease) ([facility]) Diabetic neuropathy ([facility]) Hyperlipidemia Myocardial infarct ([facility]) Stage 4 chronic kidney disease (HCC) Type 1 diabetes ([facility]) Medications Scheduled Meds:aspirin, 81 mg, Oral, Daily [...] Yes, addressed in today's progress note Anticipated [place] Medications (ICU initiated) or Dose Changes and [...] hours of ICU transfer, page MICU res clinical documentation consultant for clarifications. * Janell Booker MD - [...] had been recently [facility], and today was found altered, nasal [...] Normal [] Scar/Lesion/Mass Inspection of teeth/lips/gums Dentition: [][place] Teeth []Dentures Lips/Gums: [x]Intact []Lesion Present Mucosa: [][place] []Moist []Dry Neck: External Appearance Overall Appearance: [...] Glucose: Recent Labs 08/12/24 1337 08/12/24 1820 08/12/24233208/13/24 0057 08/13/24 0507 08/13/24 0509 08/13/24 0612 08/13/24 1025 08/13/24 1203 08/13/24 1758 08/13/24202008/13/24 2219 08/14/24 0404 08/14/24 0926 GLUCOSE 229* [...] 2333 08/13/24 0658 PHART -- -- 7.291* ZBM5RDT -- -- 49.4* PO2ART -- -- 84.7 STZ9CQB -- -- 23.3 K0OFDMIT Bi-PAP 30% Oxygen 30% Oxygen Lactic Acid: [...] EEG with video is abnormal. Continuous diffuse lrbvpvpc-oi-xeiojt diffuse slowing is seen unresponsive to stimulation. REM sleep architecture is observed. At times, fronto-centrally predominant fast activity is observed reminiscent of sleep spindles. No interictal epileptiform activity nor seizures are observed. The findings are supportive of a knplhnbk-kg-aimegd global encephalopathy non- specific as to etiology. [...] Prophylaxis: SCDs Disposition: Stable for Transfer to [facility]. Overall pt has quickly stabilized since admission. [...] PM EDT I have personally performed a sjfg-rt-knfi diagnostic evaluation on this patient on date of onsptnj26/12/24. History, labs, imaging studies, and electronic medical record have been reviewed by me. This note documented by the [x]warehouse stocker []TONJA reflects my history, exam, and medical [...] Abraham RRT - 08/14/2024 12:36 AM EDT [facility] Respiratory Care Department Progress Note Comment [...] requiring intubation, was followed by RD and MASTICATOR, underwent MBSS 08/04 with pureed/mildly thick liquids recs, was later upgraded to regular textures/mildly thick liquids. Per paper chart at [facility] pt was ordered a Soft and Bite Sized Diet with Mildly Thick Liquids. Did not appear to be receiving ONS. Recommend pt not be without nutrition for >72 hours if medically able. --> if pt is able to advance oral diet, consider goal of ALLI, CHO Controlled and monitor renal labs and need for additional therapeutic restrictions in setting of ESRD/HD. Consider MASTICATOR evaluation for texture/consistency recommendations. Do feel that [...] (need further clarification on PO intake NURSE COLLEGE, pt weight appeared to be downtrending during recent admit however is now back up to similar weight at start of recent admit, will continue to monitor criteria) Context: Acute Illness Findings of the 6 clinical characteristics of malnutrition: Energy Intake: Unable to assess (during recent admit pt required intubation and EN, s/p MBSS with altered consistency diet recs, at [facility] pt was ordered soft and bite sized/mildly thick liquids, unclear intake NURSE COLLEGE, pt is currently NPO and requiring NIV) [...] Mild (BUE pitting, BLE non-pitting per flowsheets) Geological Manager Strength: Not Performed Nutrition Assessment: pt with PMH significant for COPD (4L NC at baseline), ESRD on HD, DM1, HLD and recent admission to ICU for septic shock and subdural hematoma (07/26-08/10/24) who presented to [facility] ED on 08/12/24 in respiratory distress, pt was d/c to [facility] following recent admit and was found with altered mentation, nasal cannula was taken off and pulse ox at 80%, pt brought to [facility] ED for assessment, in the ED mental [...] time, of note pt was followed by MASTICATOR during recent admit- she was on altered consistency diet, underwent MBSS on 08/04 with pureed/mildly thick liquids recs, was later upgraded to regular textures/mildly thick liquids on 08/09 prior to d/c, at time of assessment pt is sleeping soundly in bed, NIV in place and pt on cEEG, per paper chart at [facility] ptwas receiving a Soft and [...] On: Kcal/kg Weight Used for Energy Requirements: [place] Weight for Energy Calculation (kg): 59.1 kg Total Energy Requirements (kcals/day): 1655-1891kcals/day Weight Used for Protein Requirements: [place] Weight in Kg Used for Protein Requirements: [...] admit --> 07/28/24: 134# bedscale, 08/07/24:126# bedscale) [place] Body Weight (lbs) (Calculated): 130 lbs [place] Body Weight (Kg) (Calculated): 59 kg % [place] Body Weight (Calculated): 104.6 % BMI (kg/m2) [...] determine Lidia Rojas RD Contact: available via apiOmat or *[phone] * Janell Booker MD - 08/13/2024 6:23 [...] [facility], and today was found altered, nasal [...] Weight 62 kg (136 lb 11 oz) (08/13/24548) BMI Body mass index is 22.06 kg/m . I/O: 08/12 0700 - 08/13 659 In: 2480.5 [I.V.:2075] Out: [...] Normal [] Scar/Lesion/Mass Inspection of teeth/lips/gums Dentition: [][place] Teeth []Dentures Lips/Gums: [x]Intact []Lesion Present Mucosa: [][place] []Moist []Dry Neck: External Appearance Overall Appearance: [...] 08/12/24 1337 08/12/24 1604 08/12/24 1820 08/12/24 23308/13/24 0057 08/13/24 0507 08/13/24 0658 08/13/24 0918 [...] 1604 08/12/24233208/13/24 0658 PHART -- -- 7.291* GOM6RLE -- -- 49.4* PO2ART -- -- 84.7 QKC7CGN -- -- 23.3 E2HKVPCP Bi-PAP 30% Oxygen 30% Oxygen Lactic Acid: [...] EEG with video is abnormal. Continuous diffuse uhnodpje-fb-pfhixe diffuse slowing is seen unresponsive to stimulation. REM sleep architecture is observed. At times, fronto-centrally predominant fast activity is observed reminiscent of sleep spindles. No interictal epileptiform activity nor seizures are observed. The findings are supportive of a mafufunn-ly-wguxwo global encephalopathy non- specific as to etiology. [...] PM EDT I have personally performed a ywzj-vc-mmip diagnostic evaluation on this patient on date of /11/24. History, labs, imaging studies, and electronic medical record have been reviewed by me. This note documented by the [x]warehouse stocker []TONJA reflects my history, exam, and medical [...] so far today, excludingprocedures. documented in this [facility]10-21-2024 Nurse Note* Liliana Mott - 08/23/2024 3:02 PM EDT Patient Name: Sandy Deng Patient : 1960 Acct: [id number] Date of Admission: 08/12/2024 Room[facility]Bed: [facility] A Code Status: Full Code Allergies: No [...] - Before each treatment: Dialysis Machine No.: [id number] Machine Number: [id number] Dialyzer Lot No.: [id number] Tubing Lot Number: [id number] All Connections Secure: Yes Venous Parameters Set: Yes Arterial Parameters Set: Yes NS Bag: Yes Saline Line Double Clamped: Yes Dialyzer: Nipro Prime Volume (mL): 200 mL RO Machine Number: [id number] RO Machine Log Sheet Completed: Yes Machine Alarm Self Test: Completed, Passed (2895) (08/23/24 1323) Air Foam Detector: Tested, Proper Function, pH Reading Extracorporeal Circuit Tested for Integrity: Yes Machine Conductivity: 13.6 Manual Conductivity: 13.6 Manual Ph: 7 Bleach Test (Neg): Yes Bath Temperature: 36 C (96.8 F) Conductivity Meter Serial #: [id number] Machine Functioning Alarm Free? Yes Dialysis Bath: K+ (Potassium): 4 Ca+ (Calcium): 2.5 Na+ (Sodium): 137 HCO3 (Bicarb): 35 Bicarbonate Concentrate Lot No.: [id number] Acid Concentrate Lot No.: [id number] Chlorine Testing - Before each treatment and [...] Name: Sandy Deng Patient : 1960 Acct: [id number] Date of Admission: 08/12/2024 [facility] A Code Status: Full [...] artery Chest pain Chronic constipation Cigarette smoker Gordo's sign present Depressive disorder Diabetic ketoacidosis (CMS/HCC) [...] 0753 -- -- -- Tachypnea -- Clear;Diminished [place] Dry;Cool -- Soft;Rounded;Nondistended Active;Audible 08/21/24 1010 Alert (0) -- Regular -- Bi-PAP Diminished [place] Cool;Dry Fair Soft Active 08/21/24 1320 Alert (0) x3 Regular -- Bi-PAP Diminished [place] Cool;Dry Fair Soft Active Labs Lab Results [...] - Before each treatment: Dialysis Machine No.: [id number] RO Machine Number: [id number] Dialyzer Lot No.: [id number] Tubing Lot Number: [id number] All Connections Secure: Yes Venous Parameters Set: Yes Arterial Parameters Set: Yes NS Bag: Yes Saline Line Double Clamped: Yes Dialyzer: Nipro Prime Volume (mL): 200 mL RO Machine Number: [id number] RO Machine Log Sheet Completed: Yes Machine [...] HCO3 (Bicarb): 35 Bicarbonate Concentrate Lot No.: [id number] Acid Concentrate Lot No.: [id number] Chlorine Testing - Before each treatment and [...] -- -- 62 15 100 % -- 08/20/242099 132/52 -- -- 63 17 100 % [...] with repeat glucose of 653 * Claudia Perze RN - 08/19/2024 7:56 AM EDT Critical Care lab called with result of 626. Med Team A paged regarding. * Laquita Shaikh LPN - 08/18/2024 11:23 AM EDT Patient Name: Sandy Deng Patient : 1960 Acct: [id number] Date of Admission: 08/12/2024 [facility] [place] A Code Status: [...] artery Chest pain Chronic constipation Cigarette smoker Gordo's sign present Depressive disorder Diabetic ketoacidosis (CMS/HCC) [...] - Before each treatment: Dialysis Machine No.: [id number] RO Machine Number: [id number] Dialyzer Lot No.: [id number] Tubing Lot Number: [id number] All Connections Secure: Yes Venous Parameters Set: Yes Arterial Parameters Set: Yes NS Bag: Yes Saline Line Double Clamped: Yes Dialyzer: Nipro Prime Volume (mL): 250 mL RO Machine Number: [id number] RO Machine Log Sheet Completed: Yes Machine Alarm Self Test: Completed, Passed (08/18/24799) Air Foam Detector: Tested, Proper Function, pH Reading Extracorporeal Circuit Tested for Integrity: Yes Machine Conductivity: 13.9 Manual Conductivity: 14 Manual Ph: 7.2 Bleach Test (Neg): Yes Bath Temperature: 36 C (96.8 F) Conductivity Meter Serial #: [id number] Machine Functioning Alarm Free? Yes Dialysis Bath: K+ (Potassium): 3 Ca+ (Calcium): 2.5 Na+ (Sodium): 137 HCO3 (Bicarb): 35 Bicarbonate Concentrate Lot No.: [id number] Acid Concentrate Lot No.: [id number] Chlorine Testing - Before each treatment and [...] 77 -- (!) 77 % -- 08/17/24 194 -- -- -- 69 16 97 % [...] to face Response: See orders Notification Time: 829 Reason for Communication: Evaluate (Blood glucose 405) Provider Role: Attending physician Method of Communication: Face to face Response: See orders Notification Time: 829 Handoff complete and report given to Primary [...] Name: Sandy Deng Patient : 1960 Acct: [id number] Date of Admission: 08/12/2024 Room/Bed: T3321/[facility] A Code Status: [...] artery Chest pain Chronic constipation Cigarette smoker Gordo's sign present Depressive disorder Diabetic ketoacidosis (CMS/HCC) [...] RN (First Initial, Last Name, Title): Bijan Quitnero RN Incapacitated Nurse Education Completed: Yes JT [...] - Before each treatment: Dialysis Machine No.: [id number] RO Machine Number: [id number] Dialyzer Lot No.: [id number] Tubing Lot Number: [id number] All Connections Secure: Yes Venous Parameters Set: Yes Arterial Parameters Set: Yes NS Bag: Yes Saline Line Double Clamped: Yes Dialyzer: Nipro Prime Volume (mL): 200 mL RO Machine Number: [id number] RO Machine Log Sheet Completed: Yes Machine Alarm Self Test: Completed, Passed (1340) (08/16/241340) Air Foam Detector: Tested, Proper Function Extracorporeal Circuit Tested for Integrity: Yes Machine Conductivity: 13.4 Manual Conductivity: 13.8 Manual Ph: 7.4 Bleach Test (Neg): Yes Bath Temperature: 36 C (96.8 F) Conductivity Meter Serial #: [id number] Machine Functioning Alarm Free? Yes Dialysis Bath: K+ (Potassium): 3 Ca+ (Calcium): 2.5 Na+ (Sodium): 137 HCO3 (Bicarb): 35 Bicarbonate Concentrate Lot No.: [id number] Acid Concentrate Lot No.: [id number] Chlorine Testing - Before each treatment and every 4 hours: Time On: 1351 Time Off: 1651 Treatment Goal: 3L as tolerated per Dr. Medrano at bedside Weight Height: 167.6 cm (5' 6) (08/13/24 0813) Weight: 56.5 kg (124 lb 9 oz) (08/16/241344) BMI (Calculated): 20.11 (08/16/24 134) 1st check: less than 0.1 ppm at: [...] Temporal 72 16 97 % -- 08/16/24 033 -- -- -- -- -- -- 56.5 kg (124 lb 9 oz) 08/15/242001 -- -- -- 72 19 97 % -- 08/15/241999 135/59 36.6 C (97.9 F) Temporal 73 16 97 % -- 08/15/241799 -- -- -- 78 17 100 % [...] Name: Sandy Deng Patient : 1960 Acct: [id number] Date of Admission: 08/12/2024 [facility] [place] A Code Status: [...] - Before each treatment: Dialysis Machine No.: [id number] Machine Number: [id number] All Connections Secure: Yes Venous Parameters Set: Yes Arterial Parameters Set: Yes NS Bag: Yes Saline Line Double Clamped: Yes Dialyzer: Nipro Prime Volume (mL): 200 mL RO Machine Number: [id number] RO Machine Log Sheet Completed: Yes Machine Alarm Self Test: Completed, Passed (08/13/24 1520) Air Foam Detector: Tested, Proper Function, pH Reading Extracorporeal Circuit Tested for Integrity: Yes Machine Conductivity: 13.8 Manual Conductivity: 13.8 Manual Ph: 7 Bleach Test (Neg): Yes Bath Temperature: 36 C (96.8 F) Conductivity Meter Serial #: [id number] Machine Functioning Alarm Free? Yes Dialysis Bath: [...] chat Response: No new orders Notification Time: 1745 Reason for Communication: Critical lab value (1/2 BC + presumptive staph epi) Provider Role: Resident Method of Communication: Secure chat Response: No new orders Notification Time: 1745 Handoff complete and report given to Primary [...] Stroke team narrator completed. documented in this [facility]10-21-2024 Consult note* Eladio Lebron MD - 08/23/2024 [...] 10 days. Insulin Disposable Pump (Omnipod 5 [id number] Intro Gen 5) kit Insulin Disposable Pump (Omnipod 5 BkmI8M3 Pods Gen 5) misc insulin glargine (Lantus) [...] contact the on-call urology resident in the materials management manager for void trial instructions. Would recommend doing void trial prior to the day of anticipated discharge if able. Follow up with urology for continued outpatient management Please page the clinical documentation consultant urology resident with any questions or concerns [...] the resident s findings and plan. William Stene MD * Glenda Ma MD - 08/20/2024 [...] Provider, Continuous Glucose Sensor (Dexcom G6 Sensor) [facility] 07/22/24 Historical Provider, Continuous Glucose Transmitter (Dexcom G6 transmitter) [place] 07/25/24 Historical Provider, estradiol (Estrace) 1 MG tablet Take 1 mg by mouth in the morning. Historical Provider, fluticasone (Flonase) 50 MCG/ACT nasal spray Administer 2 sprays into each nostril daily. Shake gently. Before first use, prime pump. After use, clean tip and replace cap. 08/10/24 08/10/25 Khai Espana, DO gabapentin (Neurontin) 100 MG capsule Take 2 capsules (200 mg) by mouth 2 times daily. 08/10/24 08/10/25 Khai Espana, DO guaiFENesin (Robitussin) 100 MG/5ML liquid Take 10 mL (200 mg) by mouth every 4 hours as needed forcough or congestion for up to 10 days. 08/10/24 08/20/24 Khai Espana, DO Insulin Disposable Pump (Omnipod 5 [id number] Intro Gen 5) kit 1/31/24 Historical Provider, Insulin Disposable Pump (Omnipod 5 CafW7S8 Pods Gen 5) misc 07/15/24 Historical Provider, [...] FOR ONE DAY Historical Provider, MD Zuluaga Ellipmika 200-62.5-25 MCG/ACT aerosol powder 05/12/24 Historical Provider, [...] Normal [] Scar/Lesion/Mass Inspection of teeth/lips/gums Dentition: [x][place] Teeth []Dentures Lips/Gums: [x]Intact []Lesion Present Mucosa: [][place] []Moist [x]Dry Neck: External Appearance Overall Appearance: [...] 08/20/24 1024 08/20/24 1250 PHART 7.209* 7.244* HCQ8OBP 71.5* 68.4* PO2ART 63.4* 36.2* CXI4CNW 27.9* 28.9* G8CHKAOI Nasal cannula Bi-PAP Labs in Last 3 [...] PM EDT I have personally performed a fbhe-dc-umvi diagnostic evaluation on this patient on date of dwyzmrh38/18/24. History, labs, imaging studies, and electronic medical record have been reviewed by me. This note documented by the [x]Critical Care Fellow []warehouse stocker []TONJA reflects my history, exam, and medical [...] from the original note were not included. [facility] - Infectious Diseases Attending Consult Note Reason for Consult: Respiratory distress, change in MS,lethargy, and pancytopenia and candiduria History of Present Illness: 63 F, DMT1, COPD on 4 L, recently admitted to [facility] form 07/26-08/10 for Respiratory failure, treated as aspiration pNA already, septic shock, off presors, UMA/CKD, and finally transferred to Rehab. Overthere she pulled her NC< and found altered, hypoxic, lethargic. Transferred back to [facility], and required NIV initially. Today she is [...] 7.5 mg 7.5 mg Oral BID May Wang, DO [Held by provider] clopidogrel (Plavix) tablet [...] mg 1 mg IntraMUSCular PRN Ana Rosa Carlin, DO glucose oral gel 15 g 15 [...] Rosa Carlin DO 3 mL at 08/13/24 09 lisinopril tablet 2.5 mg 2.5 mg Oral Daily Ana Rosakosta Carlin DO [START ON 08/14/2024] methylPREDNISolone sod [...] 25 mg 25 mg Oral Nightly May Wang, DO 25 mg at 08/13/24 0131 sodium chloride 0.9 % infusion 250 mL/hr IntraVENous PRN April Soto MD [Held by provider] tiotropium (Spiriva Respimat) 2.5 MCG/ACT inhaler 2 puff 2 puff Inhalation DailyBillyda Edie Carlin DO Allergies: No Known Allergies [...] edema with small pleural effusions. Antimicrobials,Start/End Dates: Opabpnk73/10- Impression: 63 F, admitted with: Respiratory distress- [...] days Referring physician: Elizabeth Tyler MD Outpatient Pipe Fitter Welding: Dr. Christy Fontenot Reason for Consult UMA requiring dialysis Chief [...] hypercapneic respiratory failure. 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 Baseline Cr had been 2.4-2.8, last (04/26) Cr 2.4 eGFR 20, 24 hr ibgxtxo=8064 mg. -Suspected ATN in setting of infection/HD [...] -S/p 1 dose vanc -ID evaluating Access: [facility] 07/29 Case was discussed with ICU [...] call with any questions. Saroj Gaffney MD [facility] ([facility]) Office phone: [phone] Office fax: [phone] Pager: [phone] 08/13/24 History of Present Illness Sandy Deng [...] with hypercapneic respiratory failure. Recently discharged to [facility] from [facility] after admission for sepsis/shock as above. Now [...] Does not appear patient had HD at [facility] 08/12 (last treatment here 08/10), Cr [...] from the original note were not included. [facility] Wound Care CONSULT Note Sandy Deng [...] tablet by mouth 2 times daily. Cholecalciferol ([facility] Vitamin D3) 25 MCG (1000 [...] to follow Recommend to follow up at [facility] wound care center after [...] Name: Sandy Deng Patient : 1960 Acct: [id number] Date of Admission: 08/12/2024 Room[facility]: [facility] A PCP: Juliet Lujan Stroke team; Floor History of Present [...] mouth 2 times daily. Historical Provider, Cholecalciferol ([facility] Vitamin D3) 25 MCG (1000 UT) chewable tablet Chew. Historical Provider, clopidogrel (Plavix) 75 MG tablet Take 1 tablet by mouth daily. Historical Provider, Continuous Glucose Sensor (Dexcom G6 Sensor) [place] 07/22/24 Historical Provider, Continuous Glucose Transmitter (Dexcom G6 transmitter) [place] 07/25/24 Historical Provider, estradiol (Estrace) 1 MG [...] Espana DO Insulin Disposable Pump (Omnipod 5 CypS2U5 Intro Gen 5) kit 12/03/23 Historical Provider, Insulin Disposable Pump (Omnipod 5 MosY8V9 Pods Gen 5) misc 07/15/24 Historical Provider, [...] mcg/mL) infusion, 0.1-1.5 mcg/kg/hr, IntraVENous, Continuous, May Wang DO, Last Rate: 2.88 mL/hr at 08/12/242014, 0.2 mcg/kg/hr at 08/12/242014 dextrose 5 % infusion, 100 mL/hr, IntraVENous, PRN, Ana Rosakosta Irizarry Carlin, DO dextrose 50 % solution 12.5 [...] mL, 3 mL, Nebulization, TID, Ana Rosa Irizarry Carlin, DO, 3 mL at 08/12/24 2019 [Held by provider] lisinopril tablet 2.5 mg, 2.5 mg, Oral, Daily, Ana Rosa Pros DO methylPREDNISolone sod suc (PF) (SOLU-Medrol) 40 MG injection 40 mg, 40 mg, IntraVENous, q6h, Ana Rosa Irizarry Carlin, DO, 40 mg at 08/12/24 1640 [Held by provider] metoprolol tartrate (Lopressor) tablet 50 mg, 50 mg, Oral, BID, Ana Rosa Pros, DO [Held by provider] mirtazapine (Remeron) tablet 7.5 mg, 7.5 mg, Oral, Nightly, Ana Rosa Pros, DO [Held by provider] mometasone-formoterol (Dulera 200) 200-5 MCG/ACT inhaler 2 puff, 2 puff, Inhalation, BID, Ana Rosa Pros DO mupirocin (Bactroban) 2 % ointment [...] Temp src Pulse Resp SpO2 Height Weight 08/12/241 131/50 36.7 C (98 F) Axillary 76 [...] 445 ms QTC Interval 450 ms P [place] 76 degrees QRS [place] -24 degrees T Wave [place] 51 degrees OK Interval 162 ms Basic metabolic panel Collection [...] PM Result Value Ref Range PRODUCT CODE [id number] Unit Number [id number] Unit ABO O Unit RH POS Crossmatch [...] non thrombolytic stroke workup documented in this [facility]10-21-2024 Hospital Discharge instructions* Discharge Instr - CHELO* Sindy Garrison RN - 08/23/2024 1:25 PM EDT Images from the original note were not included. Continuity of Care Form Patient Name: Sandy Deng : 1960 Admit date: 08/12/2024 Discharge date: 08/24/24 Code Status Order: Full Code Advance Directives: N Admitting Physician: Kemar Adames DO PCP: Juliet Lujan Discharging Nurse: sindy soriano Discharging Hospital Unit/Room#: W6-641/W6-641 A Discharging Unit Emergency Contact: Extended Emergency Contact Information Primary Emergency Contact: Bobbi Steward Mobile Relation: Daughter Preferred language: [place] Director Learning And Development needed? No Secondary Emergency Contact: Jose Deng Mobile Relation: Spouse Preferred language: [place] Director Learning And Development needed? No Past Surgical History: Past Surgical [...] assistance Toileting Minimal assistance Feeding Minimal assistance Knowledge Management Advisor Minimal assistance Med Delivery yes Wound Care Documentation and Therapy: Wound/Incision 08/12/24 Other (comment) Toe - fourth Anterior;Left (Active) Site Assessment Black 08/23/24 08 Rosana-Wound Assessment Pale;Purple 08/23/24 08 Drainage Description Unable to assess 08/22/242052 Odor None 08/23/24 08 Drainage Amount None 08/23/24 08 Treatments Site care 08/23/24 08 Primary Dressing Open to air 08/23/24 0800 Topical Other 08/15/24 0700 Number of days: 11 Wound/Incision 08/18/24 Pressure Injury Coccyx (Active) Site Assessment Painful;Pale;[place] 08/23/24799 Rosana-Wound Assessment Blanchable erythema;Fragile;Intact 08/23/24799 Wound [...] Rehab Therapies: physical therapy, occupational therapy, social service director, and recreation therapy Weight Bearing Status/Restrictions: no restriction Other Medical Equipment (for information only, NOT a DME order): none Other Treatments: n/a Patient's personal belongings (please select all that are sent with patient): none RN SIGNATURE: MANAGEMENT/SOCIAL WORK SECTION Inpatient Status Date: 08/12/2024 [facility] Address: [address] [place] [address] Fax: Dialysis Facility (if applicable) Name: Address: Dialysis Schedule: Phone: Fax: Metal Worker/Early Years Teacher signature: ICIAN SECTION Name: Sandy Deng Prognosis: {Rehab Prognosis:35176} Condition at Discharge: {Patient Condition:05817} Rehab Potential (if transferring to Rehab): {Rehab Prognosis:15624} Recommended Labs or Other Treatments After Discharge: The individual is being admitted to a nursing facility directly from an [facility] or a unit of a [facility] that is not operated by or licensed by [facility] under section 5119.14 or 5160-3-15.1 5 The individual requires the level of services provided by a nursing facility for the condition for which he or she was treated in the hospital and, Physician Certification: I certify the above information and transfer of Sandy Deng is necessary for the continuing treatment of the diagnosis listed and that she requires {CHELO Level of Care:05960} for {greater less than:26431} 30 days. Update Admission H&P: {CHELO Changes in H&P:68178} PHYSICIAN SIGNATURE: {E-signature:16476} documented in [facility]10-11-2024 NoteReturn referral placed to [facility] rehab H[facility] via [facility] per [facility] request. Await review and response regarding ability to accept. [facility] notified. [facility]10-11-2024 [facility]10-11-2024 Procedure note* Armen Diaz MD PhD - 08/13/2024 3:02 AM EDTAssociated Order(s): EEG CONTINUOUS MONITORING Images from the original note were not included. [facility] [address] [place] [id number] CONTINUOUS LONG-TERM VIDEO EEG MONITORING REPORT Patient Name: Sandy Deng : 1960 Date of Study: 08/13/2024 Duration Recorded: 12-26 hrs EEG#: [id number] WATCH ASSEMBLY INSTRUCTOR: Adam Hudson PROVIDER REQUESTING STUDY: May Wang [...] 2 puff Inhalation q6h PRN Ana Rosakosta Irizarry Carlin, DO [Held by provider] aspirin EC tablet 81 mg 81 mg Oral Daily Ana Rosakosta Pros, DO [Held by provider] atorvastatin (Lipitor) tablet 20 mg 20 mg Oral Nightly Ana Rosakosta Irizarry Carlin, DO busPIRone (Buspar) tablet 7.5 mg 7.5 mg Oral BID May Wang DO calcium gluconate 2000 mg in 100 mL IVPB premix 2,000 mg IntraVENous Once May Wang, DO 50 mL/hr at 08/13/24 0245 2,000 mg at 08/13/24 0245 [Held by provider] clopidogrel (Plavix) tablet 75 mg 75 mg Oral Daily Ana Rosakosta Pros, DO dextrose 5 % infusion 100 mL/hr IntraVENous PRN Ana Rosakosta Pros, DO dextrose 50 % solution 12.5 g 12.5 g IntraVENous PRN Ana Rosakosta Pros, DO [Held by provider] fluticasone (Flonase) nasal spray 2 spray 2 spray Each Nostril Daily Ana Rosakosta Pros, DO gabapentin (Neurontin) capsule 200 mg 200 mg Oral BID May Wang DO glucagon (human recombinant) injection 1 mg 1 mg IntraMUSCular PRN Ana Rosakosat Pros, DO glucose oral gel 15 g 15 g Oral PRN Ana Rosakosta Pros, DO [Held by provider] guaiFENesin (Robitussin) 100 MG/5ML liquid 200 mg 200 mg Oral q4h PRN Ana Rosakosta Pros, DO [Held by provider] heparin injection 5,000 Units 5,000 Units SubCUTAneous 2 times per day Ana Rosakosta Pros, DO 5,000 Units at 08/12/242049 Insulin Lispro (Humalog) injection 0-6 Units 0-6 Units SubCUTAneous q6h Ana Rosakosta Pros, DO 3 Units at 08/13/24 010 ipratropium-albuterol (Duo-Neb) 0.5-2.5 mg/3 mL nebulizer solution 3 mL 3 mL Nebulization TID Ana Rosakosta Pros, DO 3 mL at 08/12/242018 lactated ringers [...] mg 50 mg Oral BID Ana Rosakosta Carlin, DO mirtazapine (Remeron) tablet 7.5 mg 7.5 mg Oral Nightly May Wang DO [Held by provider] mometasone-formoterol (Dulera 200) 200-5 MCG/ACT inhaler 2 puff 2 puff Inhalation BID Ana Rosakosta Carlin DO mupirocin (Bactroban) 2 % ointment 1 Application 1 Application Nasal BID Ana Rosakosta Carlin DO 1 Application at 08/12/242049 ondansetron [...] study with video was carried out at [facility]. Scalp electrodeswere positioned in person by an chief ultrasound technologist, following patient education, according to the 10-20 International system of electrode placement and maintained for integrity and quality of the recording. . EEG data with video was recorded continuously and digitally stored. The chief ultrasound technologist reviewed all automated detections and manual [...] diffuse delta-theta range (1.5-7 Hz, 20-35 uV) qqufipgcw-ix-mlkvwsvagrycym slow wave activity was seen unresponsive to [...] EEG with video is abnormal. Continuous diffuse pbwntejq-nt-jqfqxx diffuse slowing is seen unresponsive to stimulation. REM sleep architecture is observed. At times, fronto-centrally predominant fast activity is observed reminiscent of sleep spindles. No interictal epileptiform activity nor seizures are observed. The findings are supportive of a wsbiyufm-nm-jaoxpe global encephalopathy non- specific as to etiology. Will continue video-EEG monitoring to evaluate the evolution of this encephalopathy. Jasmeet Arevalo, PhD Clinical Neurophysiologist Armen Diaz MD PhD Epilepsy Attending documented in this [facility]10-10-2024 NoteSoft restraints removed at this time. Dr. Hoang made aware. Clari Bronson RN 08/12/24 1634[facility]10-10-2024 Emergency department Note* Clari Bronson RN [...] 08/12/2024 11:35 AM EDT Emergency Department Encounter [facility] EMERGENCY DEPT Patient: Sandy Deng : 1960 [...] contact the dictating provider for clarification.) Lucina Galvan, DO [employer] Lucina Galvan DO 08/12/24 1755 * Sapphire Bianchi PA-C - 08/12/2024 11:35 AM EDT Emergency Department Encounter [facility] Emergency Department Patient: Sandy Deng : 1960 [...] pneumonia, andrespiratory failure. Patient was discharged to [facility] 2 days ago, and today [...] misc Continuous Glucose Transmitter (Dexcom G6 transmitter) [facility] estradiol (Estrace) 1 MG tablet Take 1 [...] 10 days. Insulin Disposable Pump (Omnipod 5 [id number] Intro Gen 5) kit Insulin Disposable Pump (Omnipod 5 [id number] Pods Gen 5) misc insulin glargine (Lantus) [...] Psychiatric: Mood and Affect: Mood normal. Screenings: [place] Coma Scale Best Eye Response: To pain [...] Motor - Left Arm: Some Effort Against [place] 5B. Motor - Right Arm: Some Effort Against [place] 6A. Motor - Left Leg: Some Effort Against [place] 6B. Motor - Right Leg: Some Effort Against [place] 7. Limb Ataxia: Absent 8. Sensory Loss: [...] Abnormal Glucose 259 (*) Narrative: Performed by: [facility], [address] [place] [address] CLIA ID: [id number] POCT GLUCOSE METER UNSOLICITED RESULTS - Abnormal Glucose 252 (*) Narrative: Performed by: [facility], [address] [place] [address] CLIA ID: [id number] POCT GLUCOSE METER UNSOLICITED RESULTS - Abnormal Glucose 253 (*) Narrative: Performed by: [facility], [address] [place] [address] CLIA ID: [id number] BLOOD CULTURE - Normal Blood Culture Blood [...] ACID WITH REFLEX PREPARE RBC PRODUCT CODE [id number] Unit Number [id number] Unit ABO O Unit RH POS Crossmatch interpretation COMP Dispense Status Transfused Blood Expiration Date Product Blood Type 5100 Unit Volume 300 PREPARE RBC PRODUCT CODE F1060R72 Unit Number [id number] Unit ABO O Unit RH POS Crossmatch interpretation COMP Dispense Status Transfused Blood Expiration Date [id number] Product Blood Type 5100 Unit Volume 300 [...] Department Physician in the absence of a completion supervisor. Please see Epiphany for interpretation of EKG. [...] 40 mg (40 mg IntraVENous Given 08/13/24 4281) albuterol 108 (90 Base) MCG/ACT inhaler 2 puff ( Inhalation Held by provider 08/12/24 4286) aspirin EC tablet 81 mg ( Oral Dose Auto Held 08/20/24 0900) busPIRone (Buspar) tablet 7.5 mg ( Oral Unheld by provider 08/13/24 0127) clopidogrel (Plavix) tablet 75 mg ( Oral Dose Auto Held 08/20/24 0900) fluticasone (Flonase) nasal spray 2 spray ( [...] 11:35 AM EDT Emergency Department Encounter Location: [facility] EMERGENCY DEPT Patient: Sandy Deng : 1960 [...] and respiratory failure. She was discharged to [facility] 2 days ago after beingadmitted [...] 445 ms QTC Interval 450 ms P [place] 76 degrees QRS [place] -24 degrees T Wave [place] 51 degrees OK Interval 162 ms XR chest 1 view [...] status and respiratoryfailure. She was discharged to [facility] 2 days ago after being [...] 08/12/2024 5:46 PM EDT documented in this [facility]10-10-2024 History and physical note* Ana Rosa Carlin, DO - 08/12/2024 3:20 PM EDT Images [...] been recently discharged 2 days ago to [facility], and today was found [...] Provider, Continuous Glucose Sensor (Dexcom G6 Sensor) [facility] 07/22/24 Historical Provider, Continuous Glucose Transmitter (Dexcom G6 transmitter) [facility] 07/25/24 Historical Provider, estradiol (Estrace) 1 MG [...] Espana DO Insulin Disposable Pump (Omnipod 5 [id number] Intro Gen 5) kit 12/03/23 Historical Provider, Insulin Disposable Pump (Omnipod 5 FwqC3N6 Pods Gen 5) misc 07/15/24 Historical Provider, [...] for 3 doses. 08/10/24 08/12/24 Khai Espana nitroglycerin (Nitrostat) 0.4 MG SL tablet 07/15/24 Historical Provider, Prolia 60 MG/ML solution prefilled syringe Historical Provider, simvastatin (Zocor) 40 MG tablet Take 40 mg by mouth daily. 07/14/24 Historical Provider, SPS 15 GM/60ML suspension TAKE 30 GRAMS BY MOUTH EVERYDAY FOR ONE DAY Historical Provider, MD Gouldlegy Ellipta 200-62.5-25 MCG/ACT aerosol powder 05/12/24 Historical [...] Normal [] Scar/Lesion/Mass Inspection of teeth/lips/gums Dentition: [][place] Teeth []Dentures Lips/Gums: []Intact []Lesion Present Mucosa: [][place] []Moist []Dry Neck: External Appearance Overall Appearance: [...] ABGs: Recent Labs 08/12/24 1337 08/12/24 1604 [id number] Nasal cannula Bi-PAP Lactic Acid: Recent Labs [...] PM EDT I have personally performed a maxz-hd-nfdi diagnostic evaluation on this patient on date of abxjaju63/10/24. History, labs, imaging studies, and electronic medical record have been reviewed by me. This note documented by the [x]warehouse stocker []TONJA reflects my history, exam, and medical [...] so far today, excludingprocedures. documented in this [facility]10-10-2024 [employer] 08-10-2024 Nurse Note* Jim Rodriguez RN - 08/10/2024 2:13 PM EDT Report called to nurse Syed at [facility]. This RN verified with Dr. Espana that pt is leavingwith johnson catheter. * Rene Euceda - 08/10/2024 9:05 AM EDT Patient Name: Sandy Deng Patient : 1960 Acct: [id number] Date of Admission: 07/26/2024 Room/Bed: [place] [...] - Before each treatment: Dialysis Machine No.: [id number] Machine Number: [id number] Dialyzer Lot No.: [id number] Tubing Lot Number: [id number] All Connections Secure: Yes Venous Parameters Set: Yes Arterial Parameters Set: Yes NS Bag: Yes Saline Line Double Clamped: Yes Dialyzer: Nipro Prime Volume (mL): 200 mL RO Machine Number: [id number] RO Machine Log Sheet Completed: Yes Machine Alarm Self Test: Completed, Passed (08/10/24 0945) Air Foam Detector: Tested, Proper Function, pH Reading Extracorporeal Circuit Tested for Integrity: Yes Machine Conductivity: 13.7 Manual Conductivity: 13.6 Machine Ph: 7 Manual Ph: 7.2 Bleach Test (Neg): Yes Bath Temperature: 36 C (96.8 F) Conductivity Meter Serial #: [id number] Machine Functioning Alarm Free? Yes Dialysis Bath: K+ (Potassium): 2 Ca+ (Calcium): 2.5 Na+ (Sodium): 136 HCO3 (Bicarb): 36 Bicarbonate Concentrate Lot No.: [id number] Acid Concentrate Lot No.: [id number] Chlorine Testing - Before each treatment and every 4 hours: Time On: 0901 Time Off: 1217 Treatment Goal: 2.5L Weight Height: 167.6 cm (5' 5.98) (08/03/24 1355) Weight: 57.4 kg (126 lb 8.7 oz) (08/07/24 0400) BMI (Calculated): 20.43 (08/07/24 040) 1st check: [...] 600 Yes pt resting, lines secure, removed 62205 08/10/24 1115 350 mL/min 970 ml/hr -160 [...] to [facility] 0639- 1mg IM glucagon given per resident. 0647- glucose confirmation came back at 216. 0654- D5 infusion discontinued at this time. * Yenny Keller RN - 08/07/2024 8:51 PM EDT Patient Name: Sandy Dneg Patient : 1960 Acct: [id number] Date of Admission: 07/26/2024 Room/Bed: [place] [...] - Before each treatment: Dialysis Machine No.: [id number] Machine Number: [id number] Dialyzer Lot No.: [id number] Tubing Lot Number: [id number] All Connections Secure: Yes Venous Parameters Set: Yes Arterial Parameters Set: Yes NS Bag: Yes Saline Line Double Clamped: Yes Dialyzer: Nipro Prime Volume (mL): 200 mL RO Machine Number: [id number] RO Machine Log Sheet Completed: Yes Machine Alarm Self Test: Completed, Passed (1616) (08/07/24 1630) Air Foam Detector: pH Reading, Proper Function, Tested Extracorporeal Circuit Tested for Integrity: Yes Machine Conductivity: 13.6 Manual Conductivity: 13.6 Machine Ph: 7 Manual Ph: 7 Bleach Test (Neg): Yes Bath Temperature: 36 C (96.8 F) Conductivity Meter Serial #: [id number] Machine Functioning Alarm Free? Yes Dialysis Bath: K+ (Potassium): 2 Ca+ (Calcium): 2.5 Na+ (Sodium): 136 HCO3 (Bicarb): 36 Bicarbonate Concentrate Lot No.: [id number] Acid Concentrate Lot No.: [id number] Chlorine Testing - Before each treatment and [...] -- -- 76 -- -- -- 08/07/24 191 104/50 -- -- 76 -- -- -- [...] Name: Sandy Deng Patient : 1960 Acct: [id number] Date of Admission: 07/26/2024 Room/Bed: T2-213/T2 A Code Status: Full Code Allergies: No [...] Alert (0) X3 Regular Nasal cannula Diminished [place] Warm;Dry Soft;Flat Present Other (Comment) Other (Comment) [...] - Before each treatment: Dialysis Machine No.: [id number] RO Machine Number: [id number] Dialyzer Lot No.: [id number] Tubing Lot Number: [id number] All Connections Secure: Yes Venous Parameters Set: Yes Arterial Parameters Set: Yes NS Bag: Yes Saline Line Double Clamped: Yes Dialyzer: Nipro Prime Volume (mL): 200 mL RO Machine Number: [id number] RO Machine Log Sheet Completed: Yes Machine Alarm Self Test: Completed, Passed (2103) (08/05/242103) Air Foam Detector: Tested, Proper Function Extracorporeal Circuit Tested for Integrity: Yes Machine Conductivity: 13.5 Manual Conductivity: 13.4 Manual Ph: 7.8 Bleach Test (Neg): Yes Bath Temperature: 36 C (96.8 F) Conductivity Meter Serial #: [id number] Machine Functioning Alarm Free? Yes Dialysis Bath: K+ (Potassium): 2 Ca+ (Calcium): 2.5 Na+ (Sodium): 136 HCO3 (Bicarb): 36 Bicarbonate Concentrate Lot No.: [id number] Acid Concentrate Lot No.: [id number] Chlorine Testing - Before each treatment and [...] -- -- 74 21 100 % -- 08/05/245 134/64 -- -- 71 21 100 % [...] blanchable erythema. Prevention Measures in place, including: [place] sheet with pillows/wedges, Foam heel protectors (changed), Heels elevated off bed on pillows, Sacral foam (in place, intact), Zinc/Moisture Barrier ointment, Waffle chair cushion (in place). Skin Care precaution order set in place. Dietitian consult in place. PT/OT consult in place. D/W nursing staff. Will continue to follow pt. Please Voicera for any questions or concerns. Ermelinda Juan, RN, BSN, CWCN * Deborah Carbajal RN - 08/03/2024 11:24 AM EDT Patient Name: Sandy Deng Patient : 1960 Acct: [id number] Date of Admission: 07/26/2024 Room/Bed: T2-213/T2-213 A [...] HGB 8.5 (L) 08/03/202421 HGB 7.1 07/31/2024 06 HCT 28.6 (L) 08/03/202421 PLT 210 08/03/202421 NA 137 08/03/202421 K 4.3 08/03/202421 CL 110 (H) 08/03/202421 CO2 26 08/03/202421 BUN 28 (H) 08/03/202421 CREATININE 2.29 (H) 08/03/202421 CALCIUM 7.4 (L) 08/03/202421 PHOS 3.4 08/03/202421 IV Drips and Rate/Dose Safety - Before each treatment: Dialysis Machine No.: [id number] Machine Number: [id number] All Connections Secure: Yes Venous Parameters Set: Yes Arterial Parameters Set: Yes NS Bag: Yes Saline Line Double Clamped: Yes Dialyzer: Nipro Prime Volume (mL): 200 mL RO Machine Number: [id number] RO Machine Log Sheet Completed: Yes Machine Alarm Self Test: Completed, Passed (08/03/24 1051) Air Foam Detector: Tested, Proper Function, pH Reading Extracorporeal Circuit Tested for Integrity: Yes Machine Conductivity: 13.7 Manual Conductivity: 13.6 Manual Ph: 7 Bleach Test (Neg): Yes Bath Temperature: 36 C (96.8 F) Conductivity Meter Serial #: [id number] Machine Functioning Alarm Free? Yes Dialysis Bath: [...] -120 mmHg 140 mmHg 80 600 Yes geriatric case manager RN at bedside to speak jacobo pt [...] and report given to Primary RN at 8133. Primary RN (First Initial, Last Name, Title): [...] PM EDT Patient returned from IR. * Meleico Li RN - 07/29/2024 4:12 PM EDT [...] paused d/t access line clotting at approximately 1127-3065. Trouble shooting attempted. Cath flow ordered and given at 0646. documented in this [facility]10-08-2024 History of Present illness Narrative* Saroj Gfafney MD - 08/10/2024 12:17 PM EDT Images from the original note were not included. Nephrology Progress Note Patient: Sandy Deng Room number: [id number] Date of Admit: 07/26/2024 LOS: 15 days Admitting physician: Ino Conte MD Referring physician: Fly De La Garza DO Outpatient Pipe Fitter Welding: Christy Fontenot DO Assessment/Plan: 63 year old female with [...] 2.4-2.8, last (04/26) Cr 2.4 eGFR , aqoonrknv=4205 mg. -Suspected ATN in setting of infection/HD [...] mg IV lasix Anemia: Hgb 7.8 Access: [facility] 07/29 Recommendations: -HD today, continue TTS for now -Can continue lasix on HD off days to assist volume removal -Continue strict I/Os and daily renal function panel to monitor for recovery -Await repeat complements Thank you for this consult, we will continue to follow. Please call or page if any questions [facility] Pager: [phone] Office: [phone]. Office Subjective: Interval history/events: Seen and evaluated [...] LABS: Recent Labs 08/08/24 0017 08/09/24 0035 08/10/2434 WBC 7.6 7.7 6.0 HGB 8.7* 8.1* 7.8* HCT 28.9* 26.6* 26.2* MCV 95.7 94.7 95.6 PLT 118* 108* 95* No results found for: IRON, TIBC, FERRITIN No results found for: [id number], FOLATE Recent Labs 08/08/24 0017 08/09/24 0035 [...] PHOS 4.5 08/10/2024 No components found for: [id number] Diagnostic Studies: CXR 08/08 Findings: Right IJ [...] Type 1 diabetes. Initially patient presented to [facility] on 07/23 with [...] the nightstand. Pt was then transferred to [facility]. Initial infectious workup returned with CTX-M Pseudomonas [...] (04/26) Cr 2.4 eGFR 20, 24 hr yzhisii=9612 mg. - On admit, (07/26) Cr 4.56, [...] evaluated at bedside; recommend continuation of acute MASTICATOR diet - Monitor adequacy of PO for [...] and C4 complement Disposition: Approved 08/09-08/16 to [facility]. Transport arranged for today at 2 [...] [facility] today. 7AM-5PM: contact resident on [facility] Med A (find by hovering over attending's name on left side of patient's chart) 5PM-7AM: contact MAKI stanton * Sada Fernandez, RICKY - 08/09/2024 4:36 PM EDT Nutrition Assessment Type and Reason for Visit: Reassess Nutrition Recommendations/Plan: Continue current diet per MASTICATOR. Per MNT, will discontinue Ensure d/t thickened [...] mass loss Fluid Accumulation: Mild Extremities, Generalized Geological Manager Strength: Not Performed Nutrition Assessment: Pt PMH of COPD, diabetic neuropathy, hx of NSTEMI, stage 4 CKD (on HD TTS), and Type 1 diabetes. Initially patient presented to [facility] on 07/23 with [...] the nightstand. Pt was then transferred to [facility]. Initial infectious workup returned with CTX-M Pseudomonas and S aureus identified on pneumonia PCR. Patient went into septic shock, requiring pressors, now resolved. Patient no longer on antibiotics. Patient saturating well on 3-4L NC. Home O2 requirement of 3L. Pt first advanced to PO diet 08/01; advanced to Regular/nectar thick per MASTICATOR recs today. Pt was sleepingat time of RD assessment and did not wake to name call. No trays at bedside to assess. Estimated Daily Nutrient Needs: Energy Requirements Based On: Kcal/kg Weight Used for Energy Requirements: [place] Weight for Energy Calculation (kg): 59 kg Total Energy Requirements (kcals/day): 25-30 kcals/kg = 5255-6366 kcals/day Weight Used for Protein Requirements: [place] Weight in Kg Used for Protein Requirements: [...] Nutrition Therapies: Adult diet Regular; Mildly Thick ([place]) Current Oral Intake Average Meal Intake: 76-100% (per flowsheet) Average Supplements Intake: None Ordered Anthropometric Measures: Height: 167.6 cm (5' 5.98) Current Body Weight: 57.2 kg (126 lb) (08/07) Weight Source: Bed Scale Admission Body Weight: 48 kg (105 lb 13.1 oz) [place] Body Weight (lbs) (Calculated): 130 lbs [place] Body Weight (Kg) (Calculated): 59 kg % [place] Body Weight (Calculated): 105.1 % BMI (kg/m2) [...] to determine Sada Fernandez RD, LD Contact: [phone] * Saorj Gaffney MD - 08/09/2024 1:34 PM EDT Images from the original note were not included. Nephrology Progress Note Patient: Sandy Deng Room number: [id number] Date of Admit: 07/26/2024 LOS: 14 days Admitting physician: Ino Conte MD Referring physician: Fly De La Garza DO Outpatient Pipe Fitter Welding: Christy Fontenot DO Assessment/Plan: 63 year old female with [...] last (04/26) Cr 2.4 eGFR , 24 ubupqokmj=6655 mg. -Suspected ATN in setting of infection/HD [...] 475 ccs/24 hrs Anemia: Hgb 8.1 Access: [facility] 07/29 Recommendations: -Ordered 80 mg IV lasix x1 -Tentatively plan for next HD tomorrow 08/10 -Continue strict I/Os and daily renal function panel to monitor for recovery -Checking UA and repeating complements; may need further workup pending results Thank you for this consult, we will continue to follow. Please call or page if any questions [facility] Pager: [phone] Office: [phone]. Office Subjective: Interval history/events: Seen at bedside [...] LABS: Recent Labs 08/07/24 0106 08/08/24 0017 08/09/2434 WBC 8.0 7.6 7.7 HGB 8.1* 8.7* 8.1* HCT 26.7* 28.9* 26.6* MCV 94.3 95.7 94.7 PLT 128* 118* 108* No results found for: IRON, TIBC, FERRITIN No results found for: [id number], FOLATE Recent Labs 08/07/24 0106 08/08/247 08/09/245 08/09/24612 NA 134* 134* 136 -- K 4.2 [...] PHOS 4.1 08/09/2024 No components found for: [id number] Diagnostic Studies: CXR 08/08 Findings: Right IJ [...] not included. Speech-Language Pathology SPEECH LANGUAGE PATHOLOGY [facility] Dysphagia Treatment Note Patient Name: Sandy Deng Evaluation Date: 08/09/2024 Date of : 1960 Admission Date: 07/26/2024 4:17 PM Age: 63 y.o. Room/Bed: 3339/[facility] B Subjective Patient was able to awaken but appeared somnolent. Family and RN reported patient with decreased POintake with current diet restrictions. Current Diet: Dietary Orders (From admission, onward) Start Ordered 08/04/24 1610 Adult diet Dysphagia - Pureed; Mildly Thick ([place]) Diet effective now Comments: Medications crushed and placed in pureed foods. Question Answer Comment Diet type Dysphagia - Pureed Fluid consistency Mildly Thick ([place]) 08/04/24 1611 08/03/24 1639 Supplement:PM Snack, HS [...] for dietadvancement. Plan & Recommendations Continue acute MASTICATOR therapy per initial plan of care and [...] Start: 08/04/24 Expected End: 08/18/24 Therapy Time MASTICATOR Individual Minutes Time In: 1125 Time Out: 1135 Minutes: 10 Shanti Bianchi MA, CCC/MASTICATOR * Amy Dorado, NURSE COLLEGE - 08/09/2024 8:47 AM EDT Images from the original note were not included. PHYSICAL THERAPY [facility] Treatment Note Name/MRN: Sandy Deng ([id number]) Date of : 1960 Age: 63 y.o. Room/Bed: [facility] Discharge Recommendation: IP Rehab Equipment [...] for short periods. Standing with this NURSE COLLEGE directly in front of pt, postural sway, [...] Minutes: 26 Minutes (tp; fa) Amy Dorado, NURSE COLLEGE * Khai Espana, DO - 08/09/2024 8:03 [...] Type 1 diabetes. Initially patient presented to [facility] on 07/23 with [...] the nightstand. Pt was then transferred to [facility]. Initial infectious workup returned with CTX-M Pseudomonas [...] PNA; Per ID stewardship, Tx with mary nan 07/27-08/02 Covid pos at OSH, micro testing [...] (04/26) Cr 2.4 eGFR 20, 24 hr vsdsueo=0670 mg. - On admit, (07/26) Cr 4.56, [...] evaluated at bedside; recommend continuation of acute MASTICATOR therapy - Diet order of Regular solids and Mildly thick liquids and meds whole in puree Acute on chronic anemia - received 1 unit of blood in morning (08/06) - Hgb 8.1 10 AM - Remains clinically stable Plan: - [...] monitor for now. 7AM-5PM: contact resident on [facility] Med A (find by hovering over attending's name on left side of patient's chart) 5PM-7AM: contact AI3 res * Jamey Muro OT - 08/08/2024 10:44 AM EDT Images from the original note were not included. OCCUPATIONAL THERAPY [facility] Treatment Note Name/MRN: Sandy Deng ([id number]) Date of : 1960 Age: 63 y.o. [...] original note were not included. PHYSICAL THERAPY [facility] Treatment Note Name/MRN: Sandy Deng ([id number]) Date of : 1960 Age: 63 y.o. [...] Type 1 diabetes. Initially patient presented to [facility] on 07/23 with [...] the nightstand. Pt was then transferred to [facility]. Initial infectious workup returned with CTX-M Pseudomonas [...] (04/26) Cr 2.4 eGFR 20, 24 hr xfpvoaa=2258 mg. - On admit, (07/26) Cr 4.56, [...] evaluated at bedside; recommend continuation of acute MASTICATOR therapy - Diet order on pureed solids [...] days Referring physician: Ino Conte MD Outpatient Pipe Fitter Welding: Christy Fontenot DO ASSESSMENT/PLAN: UMA on CKD 4 - Cr has been 2.4-2.8, last (04/26) Cr 2.4 eGFR 20, 24 hr kbfeywa=2864 mg. - On admit, (07/26) Cr 4.56, CRRT initiation for severe acidosis in setting of hemodynamic instability 9/23-08/01. - remains oliguric, transitioned to intermittent HD [...] initial consultation. Interval history reviewed: transferred to [facility] Patient reports breathing comfortably Appetite has [...] IRON, TIBC, FERRITIN No results found for: [id number], FOLATE No results found for: COLORU, CLARITYU, [...] LABFUNG IMAGING: POCT glucose meter Performed by: [facility], [address] [place] [address] CLIA ID: [id number] Signed: Jose Carlos Medrano MD Nephrology [facility] ([facility]) Pager: [phone] Office Office * Khai Yeyo Jovi, DO - 08/07/2024 8:18 AM EDT [...] Type 1 diabetes. Initially patient presented to [facility] on 07/23 with [...] the nightstand. Pt was then transferred to [facility]. Initial infectious workup returned with CTX-M Pseudomonas [...] Lactic acid .5 (08/05) - WBC 6.5 (10) - Off antibiotics Plan: - Continue spirometry - Maintain O2 saturation between 88-92% 2/2 COPD Trace Subdural Hematoma, Right-sided, Stable - notes patient fell about 1 month prior to admission and hit head - CT revealed trace R SDH Plan: - Stable no follow up needed MUA on CKD stage 4 - Cr has been 2.4-2.8, last (04/26) Cr 2.4 eGFR 20, 24 hr vunidvj=3962 mg. - On admit, (07/26) Cr 4.56, [...] evaluated at bedside; recommend continuation of acute MASTICATOR therapy - Diet order on pureed solids and Mildly thick liquids and meds whole in puree or crushed in puree Acute on chronic anemia - Hgb 6.6, received 1 unit of blood in morning (08/06) - Hgb 8.1 10 AM - Remains clinically stable Plan: - [...] waiting for placement 7AM-5PM: contact resident on [facility] Med A (find by hovering over attending's name on left side of patient's chart) 5PM-7AM: contact AI3 res * Elle Israel, NURSE COLLEGE - 08/06/2024 2:28 PM EDT Images from the original note were not included. PHYSICAL THERAPY [facility] Treatment Note Name/MRN: Sandy Deng ([id number]) Date of : 1960 Age: 63 y.o. [...] Code Treatment Minutes: 11 Minutes (FA) NURSE COLLEGE wore PPE in compliance with hospital guidelines and regulation when treating this patient. Elle Israel, NURSE COLLEGE * Sandy Bangura, LI - 08/06/2024 11:26 AM EDT Images from the original note were not included. OCCUPATIONAL THERAPY [facility] Treatment Note Name/MRN: Sandy Deng ([id number]) Date of : 1960 Age: 63 y.o. [...] (Funct--1; Self--1) GUILLERMO Taylor * Shanti Bianchi, MASTICATOR - 08/06/2024 10:26 AM EDT Images from the original note were not included. Speech-Language Pathology SPEECH LANGUAGE PATHOLOGY [facility] Dysphagia Treatment Note Patient Name: Sandy Deng Evaluation Date: 08/06/2024 Date of : 1960 Admission Date: 07/26/2024 4:17 PM Age: 63 y.o. Room/Bed: 3323/3323 A Subjective Patient was awake and cooperative. Current Diet: Dietary Orders (From admission, onward) Start Ordered 08/04/24 1610 Adult diet Dysphagia - Pureed; Mildly Thick ([place]) Diet effective now Comments: Medications crushed and placed in pureed foods. Question Answer Comment Diet type Dysphagia - Pureed Fluid consistency Mildly Thick ([place]) 08/04/24 1611 08/03/24 1639 Supplement:PM Snack, HS [...] wheat. Plan & Recommendations Plan: Continue acute MASTICATOR therapy per initial plan of care and [...] x 16. Plan & Recommendations Continue acute MASTICATOR therapy per initial plan of care and [...] Start: 08/04/24 Expected End: 08/18/24 Therapy Time MASTICATOR Individual Minutes Time In: 1000 Time Out: 1010 Minutes: 10 Shanti Bianchi MA, CCC/MASTICATOR * Sandy Gonzalez GUILLERMO Bangura - 08/06/2024 8:02 AM EDT Images from the original note were not included. OCCUPATIONAL THERAPY [facility] Name/MRN: Sandy Deng ([id number]) Date: 08/06/2024 Hold OT this a.m.; HgB 6.6 with order to transfuse. Will follow and treat as appropriate. Sandy GUILLERMO Bangura * Khai Espana, - 08/06/2024 7:20 AM [...] Type 1 diabetes. Initially patient presented to [facility] on 07/23 with [...] the nightstand. Pt was then transferred to [facility]. Initial infectious workup returned with CTX-M Pseudomonas [...] evaluated at bedside; recommend continuation of acute MASTICATOR therapy - Diet order on pureed solids [...] original note were not included. OCCUPATIONAL THERAPY [facility] Treatment Note Name/MRN: Sandy Deng ([id number]) Date of : 1960 Age: 63 y.o. [...] Score: 40 (Medium Risk) Precautions/Restrictions: Lines/Drains/Airways: JEAN-PAUL, elizabeth, CHELO [...] assist due to retro-grade balance Device(s) used: [facility] Cognition - Arousal/alertness: appropriate responses to stimuli [...] tested positive for COVID on 07/24. At [facility] ICU she had worsening hypoxia and was placed on NIV but failed. Was ultimately intubated. Noted to be hypotensive and started on levophed. Ptwas transferred to [facility] for higher level of care. On arrival [...] index is 21.54 kg/m . I/O: 08/04 700 - 08/05 659 In: 535 [P.O.:275; I.V.:60] [...] Normal [] Scar/Lesion/Mass Inspection of teeth/lips/gums Dentition: [][place] Teeth []Dentures Lips/Gums: [x]Intact []Lesion Present Mucosa: [x][place] [x]Moist []Dry Neck: External Appearance Overall Appearance: [...] 24 hours- BMP: Recent Labs 08/03/24 0022 08/04/2431408/05/24255 NA 137 134* 132* K 4.3 3.6 [...] 17.7* ABGs: No results for input(s): PHART, AMV8NOH, PO2ART, ACB9WKX, SO2ART, G6PKXGZX in thelast 72 hours. Lactic Acid: Recent [...] and Plan: Principal Problem: SDH (subdural hematoma) ([facility]) Active Problems: COPD (chronic obstructive pulmonary disease) [...] evaluated at bedside; recommend continuation of acute MASTICATOR therapy On Pureed solids and Mildly thick [...] original note were not included. PHYSICAL THERAPY [facility] Treatment Note Name/MRN: Sandy Deng ([id number]) Date of : 1960 Age: 63 y.o. Room/Bed: T2-213/T2 A Discharge [...] 08/31/24 Therapy Time Individual Co-treatment Time In 39 Time Out 1006 Minutes 27 Timed Code Treatment Minutes: (1 FA, 1 TP) Jennifer Saldaña, SPT * Svitlnaa Albarran, CCC-MASTICATOR - 08/05/2024 9:22 AM EDT Images from the original note were not included. Speech-Language Pathology SPEECH LANGUAGE PATHOLOGY [facility] Dysphagia Treatment Note Patient Name: Sandy [...] Adult diet Dysphagia - Pureed; Mildly Thick ([place]) Diet effective now Comments: Medications crushed and placed in pureed foods. Question Answer Comment Diet type Dysphagia - Pureed Fluid consistency Mildly Thick ([place]) 08/04/24 1611 08/03/24 1639 Supplement:PM Snack, HS [...] wheat. Plan & Recommendations Plan: Continue acute MASTICATOR therapy per initial plan of care and [...] Start: 08/04/24 Expected End: 08/18/24 Therapy Time MASTICATOR Individual Minutes Time In: 852 Time Out: 10 Minutes: 17 Svitlana Albarran CCC-MASTICATOR * Jose Carlos Medrano MD - 08/05/2024 8:09 AM EDT Images from the original note were not included. NEPHROLOGY SOAP NOTE Visit date: 08/05/24, 8:10 AM Patient: Sandy Deng Room number: T2-213/T2-213 A Date of Admit: 07/26/2024 LOS: 10 days Referring physician: Saroj Sadler MD Outpatient Pipe Fitter Welding: Christy Fontenot DO ASSESSMENT/PLAN: UMA on CKD 4 - Cr has been 2.4-2.8, last (04/26) Cr 2.4 eGFR 20, 24 hr inwlxnk=3981 mg. - On admit, (07/26) Cr 4.56, [...] myoclonus DATA: LABS: Recent Labs 08/03/24 0022 08/04/24 0315 08/05/24 0256 WBC 10.8* 8.5 7.4 HGB 8.5* 8.3* 7.4* HCT 28.6* 26.5* 23.6* MCV 92.3 91.1 90.4 PLT 210 178 168 Recent Labs 08/03/24 0022 08/04/24 0315 08/05/24 [...] IRON, TIBC, FERRITIN No results found for: [id number], FOLATE No results found for: COLORU, CLARITYU, [...] Narrative: [facility] DENG : 1960 [id number] Exam Date/Time: 08/05/2024 03:09 Procedure: XR CHEST [...] changes. Report Dictated on Electronically Signed By: Juliet Webb MD Electronically Signed Date/Time: 08/05/2024 5:44 AM EDT Signed: Jose Carlos Medrano MD Nephrology [facility] ([place]) Pager: [phone] Office Office * Janell Booker MD - [...] not included. Speech-Language Pathology SPEECH LANGUAGE PATHOLOGY [facility] Modified Barium Swallow Study Patient Name: [...] aspiration. Pt would benefit from skilled acute MASTICATOR services to initiate oropharyngeal exercises, ensure diet [...] Answer: Dysphagia - Soft and Bite Sized 08/02/241123 Textures tested: - thin liquid, (teaspoon, cup edge, straw, fed by clinician) - mildly thick liquid, (cup edge, fed by clinician) - puree, (teaspoon, fed by clinician) - regular solids Patient position: lateral Past Medical History: Past Medical History: Diagnosis Date COPD (chronic obstructive pulmonary disease) ([facility]) Diabetic neuropathy ([facility]) Hyperlipidemia Myocardial infarct ([facility]) Stage 4 chronic kidney disease ([facility]) Type 1 diabetes ([facility]) Past Surgical History: Past Surgical History: Procedure Laterality Date CORONARY ANGIOPLASTY WITH STENT PLACEMENT CORONARY ANGIOPLASTY WITH STENT PLACEMENT Admission Diagnosis: Patient Active Problem List Diagnosis Date Noted SDH (subdural hematoma) ([facility]) 07/26/2024 COPD (chronic obstructive pulmonary disease) ([facility]) 07/26/2024 Type 1 diabetes mellitus with kidney complication ([facility]) 07/26/2024 Myocardial infarction ([facility]) 07/26/2024 Hyperlipidemia 07/26/2024 Diabetic neuropathy associated with type 1 diabetes mellitus ([facility]) 07/26/2024 Stage 4 chronic kidney disease ([facility]) 07/26/2024 Pain: unable to answer but no evidence of same Reason for current admission: Found to have a subdural hematoma. She reportedly had a fall 1 month ago from bed. states she hit her head on the nightstand. She is on Plavix and ASA for a stent placed 7 years ago. Pt tested positive for COVID on 07/24. At [facility] ICU she had worsening hypoxiaand was placed on NIV but failed. Was ultimately intubated. Noted to be hypotensive and started on levophed. Pt was transferred to [facility] for higher level of care. On arrival [...] Start: 08/04/24 Expected End: 08/18/24 Therapy Time MASTICATOR Individual Minutes Time In: 1350 Time Out: 1410 Minutes: 20 Shanti Bianchi MA, CCC/MASTICATOR * May Wang, DO - 08/04/2024 11:22 [...] tested positive for COVID on 07/24. At [facility] ICU she had worsening hypoxia and was placed on NIV but failed. Was ultimately intubated. Noted to be hypotensive and started on levophed. Ptwas transferred to [facility] for higher level of care. On arrival [...] Normal [] Scar/Lesion/Mass Inspection of teeth/lips/gums Dentition: [][place] Teeth []Dentures Lips/Gums: []Intact []Lesion Present Mucosa: [][place] []Moist []Dry Neck: External Appearance Overall Appearance: [...] 17.4* ABGs: No results for input(s): PHART, XYK2CWK, PO2ART, OVH8MPV, SO2ART, O7AQPDMD in thelast 72 hours. Lactic Acid: No [...] and Plan: Principal Problem: SDH (subdural hematoma) ([facility]) Active Problems: COPD (chronic obstructive pulmonary disease) (H[facility]) Type 1 diabetes mellitus with kidney complication ([facility]) Hyperlipidemia Diabetic neuropathy associated with type 1 diabetes mellitus ([facility]) Assessment: Acute on Chronic Hypoxemic, Hypercapnic Resp [...] DVT Prophylaxis: Heparin subcutaneous Disposition: Transfer to [facility] I performed a history and physical [...] Saroj Sadler MD * Svitlana Albarran, [facility]-MASTICATOR - 08/04/2024 9:23 AM EDT Images from the original note were not included. Speech-Language Pathology SPEECH LANGUAGE PATHOLOGY [facility] Dysphagia Treatment Note Patient Name: Sandy Deng Evaluation Date: 08/04/2024 Date of : 1960 Admission Date: 07/26/2024 4:17 PM Age: 63 y.o. Room[facility]Bed: [facility] A Subjective Patient alert and cooperative. Seen [...] liquids. Plan & Recommendations Plan: Continue acute MASTICATOR therapy per initial plan of care and [...] Start: 08/04/24 Expected End: 08/18/24 Therapy Time MASTICATOR Individual Minutes Time In: 0855 Time Out: 05 Minutes: 10 Svitlana Albarran CCC-MASTICATOR * Shanti García RD - 08/03/2024 4:36 [...] mass loss Fluid Accumulation: Mild Extremities, Generalized Geological Manager Strength: Not Performed Nutrition Assessment: Pt is a 63-year-old female with multiple medical co-morbidities including Type I DM (on insulin pump), COPD on 4L home O2, CKD4, on ASA/Plavix who initially presented to [facility] on 07[facility] withacute respiratory distress and acute delirium. Reportedly had a fall from bed, hit head on the nightstand (one month NURSE COLLEGE). She was found to be hypoxic and hypercarbic, and COVID positive. She continued to be delirious and did not tolerate NIV, and required intubation 07/27/24. A CT head was done to evaluate her altered mental status, and she was found to have a small acute right sided SDH vs. epidural hematoma. For this reason, [facility] consulted for further neurologic management and [...] act but not able to answer questinos. MASTICATOR evaluated pt today 08/03/24 and recommends a soft and bitesized diet; pt is on same. Estimated Daily Nutrient Needs: Energy Requirements Based On: Kcal/kg Weight Used for Energy Requirements: [place] Weight for Energy Calculation (kg): 59 kg Total Energy Requirements (kcals/day): 25-30 kcals/kg = 1899-5143 kcals/day Weight Used for Protein Requirements: [place] Weight in Kg Used for Protein Requirements: [...] Weight: 48 kg (105 lb 13.1 oz) [place] Body Weight (lbs) (Calculated): 130 lbs [place] Body Weight (Kg) (Calculated): 59 kg % [place] Body Weight (Calculated): 105.1 % BMI (kg/m2) [...] Planning: Too soon to determine Shanti García RD,LD,[facility] Contact: *[phone] or [phone] Chat * Jose Carlos Medrano MD - 08/03/2024 1:32 PM EDT Images from the original note were not included. NEPHROLOGY SOAP NOTE Visit date: 08/03/24, 1:32 PM Patient: Sandy Deng Room number: T2-213/T2-213 A Date of Admit: 07/26/2024 LOS: 8 days Referring physician: Fly De La Garza DO Outpatient Pipe Fitter Welding: Christy Fontenot DO ASSESSMENT/PLAN: Non oliguric UMA on CKD 4 - Cr has been 2.4-2.8, last (04/26) Cr 2.4 eGFR 20, 24 hr keuikls=7351 mg. - On admit, (07/26) Cr 4.56, [...] IRON, TIBC, FERRITIN No results found for: [id number], FOLATE No results found for: COLORU, CLARITYU, [...] LABFUNG IMAGING: POCT glucose meter Performed by: [facility], [address] [place] [id number] CLIA ID: [id number] POCT glucose meter Performed by: [facility], [address] [place] [id number] CLIA ID: [id number] POCT glucose meter Performed by: [facility], [address] [place] [id number] CLIA ID: [id number] Signed: Jose Carlos Medrano MD Nephrology [facility] ([facility]) Pager: [phone] Office Office * RENATO Kern - 08/03/2024 9:46 AM EDT Images from the original note were not included. Speech-Language Pathology SPEECH LANGUAGE PATHOLOGY [facility] Dysphagia Treatment Note Patient Name: Sandy [...] per dysphagia plan of care. Continue acute MASTICATOR therapy per initial plan of care and [...] Start: 08/01/24 Expected End: 08/15/24 Therapy Time MASTICATOR Individual Minutes Time In: 922 Time Out: 934 Minutes: 12 RENATO Kern * Jennifer Saldaña - 08/03/2024 9:36 AM EDT Images from the original note were not included. PHYSICAL THERAPY [facility] Initial Evaluation Name/MRN: Sandy Deng ([id number]) Evaluation Date: 08/03/2024 Date of : 1960 [...] List Diagnosis Date Noted SDH (subdural hematoma) ([facility]) 07/26/2024 COPD (chronic obstructive pulmonary disease) ([facility]) 07/26/2024 Type 1 diabetes mellitus with kidney complication ([facility]CC) 07/26/2024 Myocardial infarction (HCC) 07/26/2024 Hyperlipidemia 07/26/2024 Diabetic neuropathy associated with type 1 diabetes mellitus ([facility]) 07/26/2024 Stage 4 chronic kidney disease ([facility]) 07/26/2024 Medical Precautions: No active isolations Proper [...] Responsibilities: Independent Receives Help From: Spouse Active Machine Printer: N/A Prior Level of Function ADL Assistance: [...] Raw Score (No Stairs) : 10 [facility] Score: Transferred to chair/commode Plan Pt [...] of Care supervision is transferred to a [facility] Therapy Services Physical Therapist. Goals [...] tested positive for COVID on 07/24. At [facility] ICU she had worsening hypoxia and was placed on NIV but failed. Was ultimately intubated. Noted to be hypotensive and started on levophed. Pt was transferred to [facility] for higher level of care. On arrival [...] 25 (08/03/24 0600) SpO2 100 % (08/03/24 06) Weight 62 [...] Normal [] Scar/Lesion/Mass Inspection of teeth/lips/gums Dentition: [x][place] Teeth []Dentures Lips/Gums: [x]Intact []Lesion Present Mucosa: [x][place] [x]Moist []Dry Neck: External Appearance Overall Appearance: [...] 4.1 4.3 CL 106 107 110* CO2 26 BUN 13 21* 28* CREATININE 0.87 [...] 18.1* ABGs: No results for input(s): PHART, OLD5EYH, PO2ART, LQP4BED, SO2ART, L3FVHFIZ in the last 72 hours. Labs in [...] for soft and bite sized diet per MASTICATOR. Has not expressed desire to eat. -Start [...] original note were not included. PHYSICAL THERAPY [facility] Name/MRN: Sandy Deng ([id number]) Date: 08/02/2024 Attempt Note. PT Eval and Treat order received. Per RN, pt eating and fatigued following OT. Pt states she reallytired and observed to have difficulty keeping eyes open. Pt educated on benefits of getting up in chair. Pt still would like to rest. Will continue to follow and re-attempt as able. Jennifer Saldaña, JEY * Montana Siegelneli COIL WINDING MACHINES SET UP MECHANIC - 08/02/2024 12:05 PM EDT [facility] Respiratory Care Department Progress Note As [...] not included. Speech-Language Pathology SPEECH LANGUAGE PATHOLOGY [facility] Dysphagia Treatment Note Patient Name: Sandy [...] Orders (From admission, onward) Start Ordered 08/01/24 09 Adult diet Dysphagia - Pureed; Isolation Tray [...] per dysphagia plan of care. Continue acute MASTICATOR therapy per initial plan of care and [...] Start: 08/01/24 Expected End: 08/15/24 Therapy Time MASTICATOR Individual Minutes Time In: 1057 Time Out: 1106 Minutes: 9 RENATO Kern * Jaemy Muro OT - 08/02/2024 11:09 AM EDT Images from the original note were not included. OCCUPATIONAL THERAPY [facility] Initial Evaluation Name/MRN: Sandy Deng ([id number]) Evaluation Date: 08/02/2024 Date of : 1960 Admission Date: 07/26/2024 4:17 PM Age: 63 y.o. Room/Bed: T2-213/T2213 A Discharge Recommendation: IP Rehab (If family [...] List Diagnosis Date Noted SDH (subdural hematoma) ([facility]) 07/26/2024 COPD (chronic obstructive pulmonary disease) ([facility]) 07/26/2024 Type 1 diabetes mellitus with kidney complication ([facility]) 07/26/2024 Myocardial infarction (HCC) 07/26/2024 Hyperlipidemia 07/26/2024 Diabetic neuropathy associated with type 1 diabetes mellitus (HCC) 07/26/2024 Stage 4 chronic kidney disease ([facility]) 07/26/2024 Medical Precautions: No active isolations Proper [...] Responsibilities: Independent Receives Help From: Spouse Active Machine Printer: N/A Prior Level of Function ADL Assistance: [...] of Care supervision is transferred to a [facility] Therapy Services Occupational Therapist. Goals and/or treatment plan was established in collaboration with patient/family/other representatives. * Karyn Jones MD - 08/02/2024 10:06 AM EDT Images from the original note were not included. Nephrology Progress Note Patient: Sandy Deng Room number: T2-213/T2-213 A Date of Admit: 07/26/2024 LOS: 7 days Referring physician: Saroj Sadler MD Outpatient Pipe Fitter Welding: Christy Fontenot Assessment/Plan: Mrs. Sandy Deng is a 63 year old female with PMH of CKD 4, DM type 1, HTN, CAD, COPD (3L D8etbblshh), initially presenting with resp distress and delirium, Covid positive. She was eventuallyintubated. CT head showed a small right SDH. Consulted for UMA on CKD 4 - follows with Dr Wilson ([place]). On review of available labs, Cr has been 2.4-2.8, last (04/26) Cr 2.4 eGFR 20, 24 hr gcygtgg=9892 mg. On admit, (07/26) Cr 4.56, CRRT initiation for severe acidosis in setting of hemodynamic instability 07/26-08/01. Renal plan: Non oliguric UMA on CKD 4 - Cr has been 2.4-2.8, last (04/26) Cr 2.4 eGFR 20, 24 hr cbktrbc=0858 mg. - On admit, (07/26) Cr 4.56, [...] will start service tomorrow. Karyn Jones MD [facility] ([facility]) Pager [phone] Office phone: [phone] Office fax: [phone] 08/02/2024 Subjective Noted weekend events, episode of [...] Catheter-Output (mL): 5 mL [REMOVED] Urethral Catheter Gjmymdsp-hgp-Nwkgbs (mL): 0 mL Urethral Catheter Straight-tip;Temperature probe-Output [...] tested positive for COVID on 07/24. At [facility] ICU she had worsening hypoxia and was placed on NIV but failed. Was ultimately intubated. Noted to be hypotensive and started on levophed. Pt was transferred to [facility] for higher level of care. On arrival [...] Normal [] Scar/Lesion/Mass Inspection of teeth/lips/gums Dentition: [x][place] Teeth []Dentures Lips/Gums: [x]Intact []Lesion Present Mucosa: [x][place] [x]Moist []Dry Neck: External Appearance Overall Appearance: [...] 07/30/24 0936 07/31/24 0605 PHART 7.399 7.335* PRP8ICO 44.6 47.9* PO2ART 113.8* 143.8* VOK3RLS 26.9* 25.0 T5VKOXRD 30% Oxygen Nasal cannula Labs in Last [...] for soft and bite sized diet per MASTICATOR. Has not expressed desire to eat. -Start [...] PM EDT I have personally performed a sfbu-hm-fvys diagnostic evaluation on this patient on date of service08/02/24. History, labs, imaging studies, and electronic medical record have been reviewed by me. This note documented by the [x]warehouse stocker []TONJA reflects my history, exam, and medical [...] tested positive for COVID on 07/24. At [facility] she had worsening hypoxia and was placed on NIV but failed. Was ultimately intubated. Noted to be hypotensive and started on levophed. Pt was transferred to [facility] for higher level of care. On arrival [...] time. Was cleared for pureed diet by MASTICATOR. Scheduled Meds:dexAMETHasone, 6 mg, IntraVENous, q24h Glycopyrrolate-Formoterol, [...] 07/31 0700 - 08/01 0659 In: 2298 [I.V.:194] Out: 3089 [Urine:625] Ventilator: Resp Rate (Set): [...] Normal [] Scar/Lesion/Mass Inspection of teeth/lips/gums Dentition: [x][place] Teeth []Dentures Lips/Gums: [x]Intact []Lesion Present Mucosa: [x][place] [x]Moist []Dry Neck: External Appearance Overall Appearance: [...] not displayed. CBC: Recent Labs 07/31/24 0607/31/24 1216 07/31/24 18008/01/24 0608 WBC 13.3* 15.0* -- 10.4 HGB 7.1 7.1* 6.8* 8.0* 8.3* HCT 22.3* 21.6* 25.4* 25.9* PLT 146 158 -- 156 MCV 92.9 91.1 -- 88.1 RDW 15.2* 15.2* -- 17.1* ABGs: Recent Labs 07/30/24 0212 07/30/24 0936 07/31/24 0605 PHART 7.370 7.399 7.335* TNA1WSV 46.3* 44.6 47.9* PO2ART 114.1* 113.8* 143.8* MIV5LBP 26.2* 26.9* 25.0 L7FSZEBN Vent 30% Oxygen Nasal cannula Labs in [...] and Plan: Principal Problem: SDH (subdural hematoma) ([facility]) Active Problems: COPD (chronic obstructive pulmonary disease) [...] PM EDT I have personally performed a iudh-to-xxum diagnostic evaluation on this patient on date of service08/01/2024. History, labs, imaging studies, and electronic medical record have been reviewed by me. This note documented by the [x]warehouse stocker []TONJA reflects my history, exam, and medical [...] days Referring physician: Kena Heath DO Outpatient Pipe Fitter Welding: Christy Fontenot Assessment/Plan: Mrs. Sandy Deng is a 63 year old female with PMH of CKD 4, DM type 1, HTN, CAD, COPD (3L H2phcvslek), initially presenting with resp distress and delirium, Covid positive. She was eventuallyintubated. CT head showed a small right SDH. Consulted for UMA on CKD 4 - follows with Dr Wilson ([place]). On review of available labs, Cr has been 2.4-2.8, last (04/26) Cr 2.4 eGFR 20, 24 hr hdzncqa=6777 mg. On admit, (07/26) Cr 4.56, CRRT [...] Case discussed with BO. Joni Monson MD [facility] ([facility]) Office phone: [phone] Office fax: [phone] 08/01/2024 Subjective Patient seen this am during [...] Catheter-Output (mL): 5 mL [REMOVED] Urethral Catheter Ornfokco-xvl-Nungfb (mL): 0 mL Urethral Catheter Straight-tip;Temperature probe-Output [...] not included. Speech-Language Pathology SPEECH LANGUAGE PATHOLOGY [facility] Dysphagia Treatment Note Patient Name: Sandy [...] PO diet. Plan & Recommendations Continue acute MASTICATOR therapy per initial plan of care and [...] Start: 08/01/24 Expected End: 08/15/24 Therapy Time MASTICATOR Individual Minutes Time In: 0845 Time Out: 0900 Minutes: 15 Shanti Bianchi MA, CCC/MASTICATOR * Joni Monson MD - 07/31/2024 2:48 PM EDT Images from the original note were not included. Nephrology Progress Note Patient: Sandy Deng Room number: T2-213/T2-213 A Date of Admit: 07/26/2024 LOS: 5 days Referring physician: Kena Heath DO Outpatient Pipe Fitter Welding: Christy Fontenot Assessment/Plan: Mrs. Sandy Deng is a 63 year old female with PMH of CKD 4, DM type 1, HTN, CAD, COPD (3L [id number]), initially presenting with resp distress and delirium, Covid positive. She was eventuallyintubated. CT head showed a small right SDH. Consulted for UMA on CKD 4 - follows with Dr Wilson ([place]). On review of available labs, Cr has been 2.4-2.8, last (04/26) Cr 2.4 eGFR 20, 24 hr jmnszeq=5694 mg. On admit, (07/26) Cr 4.56, CRRT [...] care of this patient. Joni Monson MD [facility] ([facility]) Office phone: [phone] Office fax: [phone] 07/31/2024 Subjective Patient seen this am during [...] Catheter-Output (mL): 5 mL [REMOVED] Urethral Catheter Xtoyzmwv-vow-Rfayem (mL): 0 mL Urethral Catheter Straight-tip;Temperature probe-Output [...] support devices as above. * Mary Menard, MASTICATOR - 07/31/2024 2:22 PM EDT Images from the original note were not included. Speech-Language Pathology SPEECH LANGUAGE PATHOLOGY [facility] Bedside Swallow Evaluation Patient Name: Sandy [...] 08/01. Pt would benefit from skilled acute MASTICATOR services to address further assess po intake [...] be evaluated. Dysphagia History: No history of MASTICATOR services in EMR with retrospective chart review [...] above. Report Dictated on Electronically Signed By: Juliet Webb MD Electronically Signed Date/Time: 07/30/2024 6:45 AM EDT Oxygen: Oxygen Therapy: Supplemental oxygen O2 Delivery Method: Nasal cannula O2 Flow Rate (L/min): 4 L/min Past Medical History: Past Medical History: Diagnosis Date COPD (chronic obstructive pulmonary disease) ([facility]) Diabetic neuropathy (HCC) Hyperlipidemia Myocardial infarct (HCC) Stage 4 chronic kidney disease (HCC) Type 1 diabetes ([facility]) Past Surgical History: Past Surgical History: Procedure Laterality Date CORONARY ANGIOPLASTY WITH STENT PLACEMENT CORONARY ANGIOPLASTY WITH STENT PLACEMENT Admission Diagnosis: Patient Active Problem List Diagnosis Date Noted SDH (subdural hematoma) ([facility]) 07/26/2024 COPD (chronic obstructive pulmonary disease) ([facility]) 07/26/2024 Type 1 diabetes mellitus with kidney complication ([facility]) 07/26/2024 Myocardial infarction ([facility]) 07/26/2024 Hyperlipidemia 07/26/2024 Diabetic neuropathy associated with type 1 diabetes mellitus ([facility]) 07/26/2024 Stage 4 chronic kidney disease ([facility]) 07/26/2024 History of Present Illness: 63 year old female with a PMHx of COPD (3L O2 baseline), DM, CKD 4, HTN, CAD, MA (PCI with stents in 2017). at bedside. Pt was admitted to [place] due to confusionand hallucinations. Pt has had episodes of staring off into space per family. Was found to have a subdural hematoma. She reportedly had a fall 1 month ago from bed. states she hit her head onthe nightstand. She is on Plavix and ASA for a stent placed 7 years ago. Pt tested positive for COVID on 07/24. Today at [place] ICU she had worsening hypoxia and was placed on NIV but failed. Was ultimately intubated. Noted to be hypotensive and started on levophed. Pt was transferred to [facility] for higher level of care. On arrival [...] clinical dysphagia evaluation Start: 07/31/24 Therapy Time MASTICATOR Individual Minutes Time In: 1357 Time Out: 1419 Minutes: 22 RENATO Underwood * Joycelyn Diane, DO - 07/31/2024 7:54 AM EDT ICU Progress Note Name: Sandy Deng : 1960(63 y.o.) Date: 07/31/24 Team: MICU Attending: Dr. Jones Subjective: Hospital Summary: 63 year old female with a PMHx of COPD (3L O2 baseline), DM, CKD 4, HTN, CAD, MA (PCI with stents in 2017). at bedside. Pt was admitted to [place] due to confusion and hallucinations. Pt has had episodes of staring off into space per family. Was found to have a subdural hematoma. She reportedly had a fall 1 month ago from bed. states she hit her head on the nightstand. She is on Plavix and ASA for a stent placed 7 years ago. Pt tested positive for COVID on 07/24. Today at [place] ICU she had worsening hypoxia and was placed on NIV but failed. Was ultimately intubated. Noted to be hypotensive and started on levophed. Pt was transferred to [facility] for higher level of care. On arrival [...] %, 100 mL/hr, Last Rate: 100 mL/hr (07/30/241737) PrismaSol BGK 2/3.5, 750 mL/hr, Last Rate: 750 mL/hr (07/30/241903) PrismaSol BGK 2/3.5, 750 mL/hr, Last Rate: 750 mL/hr (07/30/241903) PrismaSol BGK 2/3.5, 750 mL/hr, Last Rate: 750 mL/hr (07/30/24 1904) Objective: Last Vitals: BP MAP 102/67 (07/31/24 0100) 74 (07/31/24 0100) Arterial BP MAP 141/52 (07/31/24 0700) 75 mmHg (07/31/24699) Temp 36.1 C (97 F) (07/31/24 0400) Pulse 79 (07/31/24 07) Resp (!) 10 (07/31/24 07) SpO2 99 % (07/31/24699) Weight 62 kg (136 lb 11 oz) (07/29/24 0500) BMI Body mass index is 22.06 kg/m . I/O: 07/30 700 - 07/31 659 In: 2270 [I.V.:1577] Out: 8678 Ventilator: Oxygen Delivery: O2 Flow Rate (L/min): [...] Normal [] Scar/Lesion/Mass Inspection of teeth/lips/gums Dentition: [][place] Teeth []Dentures Lips/Gums: [x]Intact []Lesion Present Mucosa: [x][place] [x]Moist []Dry Neck: External Appearance Overall Appearance: [...] within last 24 hours- BMP: Recent Labs 07/28/24125607/28/24180707/30/24171407/31/24 00007/31/24 0605 NA 130* < > 132* 132* 131* K 4.5 < > 4.5 4.5 4.2 CL 102 < > 104 105 105 CO2 24 < > 28 24 24 BUN 31* < > 24* 24* 22* CREATININE 1.50* < > 0.98 0.98 0.91 CALCIUM 7.3* < > 8.7 8.7 8.7 MG 2.7* -- -- -- -- PHOS 3.5 < > 3.7 4.0 3.8 < > = values in this interval not displayed. LFTs: Recent Labs 07/28/24125607/28/24180707/30/24171407/31/24 00007/31/24 0605 AST 44 -- -- -- -- [...] 07/30/24 0557 07/30/24 0601 07/30/24 1114 07/30/24171407/30/24199907/31/24 0006 07/31/24 0007 07/31/24 0604 07/31/24 0605 [...] 0936 07/31/24 0605 PHART 7.370 7.399 7.335* ODA9MQV 46.3* 44.6 47.9* PO2ART 114.1* 113.8* 143.8* LWV3PDX 26.2* 26.9* 25.0 [id number] Vent 30% Oxygen Nasal cannula Lactic Acid: [...] procedures. Associated attestation - Kena Heath, - 07/31/2024 1:03 PM EDT I have personally performed a oxyi-fz-rasp diagnostic evaluation on this patient on date of service07/31/2024. History, labs, imaging studies, and electronic medical record have been reviewed by me. This note documented by the [x]warehouse stocker []TONJA reflects my history, exam, and medical [...] so far today, excludingprocedures. * Mary Mcintosh, JUDE - 07/30/2024 11:48 AM EDT 07/30/24 1141 [...] T2-/T2 A Date of Admit: 07/26/2024 LOS: 4 days Referring physician: Kena Heath DO Outpatient Pipe Fitter Welding: Christy Fontenot Reason for Consult: Asked to see/evaluate by [...] CKD 4 - follows with Dr Christy Fontenot ([place]). - On review of available labs, Cr has been 2.4-2.8, last (04/26) Cr 2.4 eGFR 20, 24 hr dtfhgln=3686 mg. - Home med includes losartan 25 [...] CKD 4 - follows with Dr Christy Fontenot ([place]). On review of available labs, Cr has been 2.4-2.8, last (04/26) Cr 2.4 eGFR 20, 24 hr kxzvftm=3688 mg. Home med includes losartan 25 mg [...] Urethral Catheter-Output (mL): 5 mL Urethral Catheter Diczoubw-xcn-Egwvmf (mL): 0 mL FIO2 needs: Patient Vitals [...] IRON, TIBC, FERRITIN No results found for: [id number], FOLATE Recent Labs 07/27/24 2114 07/28/24 0409 [...] studies and notes. Karyn Jones MD Pager [phone] [facility] [phone] D/w ICU * Torito Mahajan - 07/30/2024 10:36 AM EDT NEUROCRITICAL CARE PROGRESS NOTE Patient Name: Sandy Deng Patient : 1960 Acct: [id number] Date of Admission: 07/26/2024 Room[facility]: [facility] A PCP: Juliet Lujan Interval Events: - Removed from EEG [...] 8 mL/hr at 07/29/242206, 80 mcg/hr at 09/26/24 2207 glucagon (human recombinant) injection 1 mg, 1 [...] Deacon Mazariegos MD, 3 mL at 07/29/24 1944 labetalol (Normodyne,Trandate) injection 10 mg, 10 mg, [...] in 0.9 % sodium chloride 250 mL (Mwv-Uqqzmr-Bhvad) (premix), 2-100 mcg/min, IntraVENous, Continuous, Simone Momin [...] 30 mL, 30 mL, IntraVENous, PRN, Kena Luttmann, DO sodium chloride 0.9 % infusion, 75 [...] (97.3 F) Temporal 65 16 100 % 07/30/2445 -- -- -- 68 16 100 % [...] 78 ALT 23 AST 44 BILITOT 0.5 @[facility] ABGs:)No results for input(s): PH, PO2, PCO2, [...] original note were not included. PHYSICAL THERAPY [facility] Name/MRN: Sandy Deng ([id number]) Date: 07/30/2024 Screen Note. Pt remains intubated [...] O2 baseline), DM, CKD 4, HTN, CAD, MA (PCI with stents in 2017). at bedside. Pt was admitted to [place] due to confusion and hallucinations. Pt has had episodes of staring off into space per family. Was found to have a subdural hematoma. She reportedly had a fall 1 month ago from bed. states she hit her head on the nightstand. She is on Plavix and ASA for a stent placed 7 years ago. Pt tested positive for COVID on 07/24. Today at [place] ICU she had worsening hypoxia and was placed on NIV but failed. Was ultimately intubated. Noted to be hypotensive and started on levophed. Pt was transferred to [facility] for higher level of care. On arrival [...] Infusions:fentaNYL, 25-200 mcg/hr, Last Rate: 80 mcg/hr (09/26/24 2207) norepinephrine, 2-100 mcg/min, Last Rate: 2 mcg/min (07/29/241813) PrismaSol BGK 4/2.5, 750 mL/hr, Last Rate: 750 mL/hr (07/30/2436) PrismaSol BGK 4/2.5, 750 mL/hr, Last Rate: 750 mL/hr (07/30/2436) PrismaSol BGK 4/2.5, 750 mL/hr, Last Rate: 750 mL/hr (07/30/2435) propofol, 5-50 mcg/kg/min, Last Rate: 25 mcg/kg/min (07/29/24 230) Objective: Last Vitals: BP MAP (!) 71/31 [...] Normal [] Scar/Lesion/Mass Inspection of teeth/lips/gums Dentition: [][place] Teeth []Dentures Lips/Gums: [x]Intact []Lesion Present Mucosa: [x][place] [x]Moist []Dry Neck: External Appearance Overall Appearance: [...] BMP: Recent Labs 07/27/24 2114 07/28/24 0409 07/28/24125607/28/24180707/29/24 11107/29/246 07/30/24 0028 NA 131* 131* 130* < [...] 07/27/24 0530 07/27/24 1427 07/28/24 1257 07/28/24 18007/29/24 11107/29/24 1736 07/30/24 0028 AST 28 -- 44 [...] 1408 07/30/24 0212 PHART 7.506* 7.439 7.370 OWR1VPH 34.5* 37.9 46.3* PO2ART 88.9 96.3 114.1* RXE2TWV 26.7* 25.1* 26.2* R7BLVEVQ 30% Oxygen 30% Oxygen Vent Lactic Acid: [...] AM EDT I have personally performed a cowx-jc-bvpx diagnostic evaluation on this patient on date of service07/30/2024. History, labs, imaging studies, and electronic medical record have been reviewed by me. This note documented by the [x]warehouse stocker []TONJA reflects my history, exam, and medical [...] Number Called: NA Name of Designated Family Chief Embalmer: Jose Deng and pt's sister Relationship: spouse Family Chief Embalmer Updated on the Following: Updated on the [...] T2-213/T2213 A Date of Admit: 07/26/2024 LOS: 3 days Referring physician: Kena Heath DO Outpatient Pipe Fitter Welding: Christy Fontenot Reason for Consult: Asked to see/evaluate by [...] CKD 4 - follows with Dr Christy Fontenot ([place]). - On review of available labs, Cr has been 2.4-2.8, last (04/26) Cr 2.4 eGFR 20, 24 hr astuhnc=7829 mg. - Home med includes losartan 25 [...] CKD 4 - follows with Dr Christy Fontenot ([place]). On review of available labs, Cr has been 2.4-2.8, last (04/26) Cr 2.4 eGFR 20, 24 hr tqjlmbb=7441 mg. Home med includes losartan 25 mg [...] Vitals: 07/29/24 1215 07/29/24 1230 07/29/24 1238 09/26/24 1345 BP: BP Location: Patient Position: Pulse: [...] Urethral Catheter-Output (mL): 5 mL Urethral Catheter Xxaxsthq-jgj-Ggamet (mL): 0 mL FIO2 needs: Patient Vitals [...] IRON, TIBC, FERRITIN No results found for: [id number], FOLATE Recent Labs 07/27/24 0530 07/27/24 1427 [...] studies and notes. Karyn Jones MD Pager [phone] [facility] [phone] D/w ICU * Jamey Muro OT - 07/29/2024 11:27 AM EDT Images from the original note were not included. OCCUPATIONAL THERAPY [facility] Name/MRN: Sandy Deng ([id number]) Date: 07/29/2024 Pt remains on strict bed rest. Will continue to follow. Jamey Muro OT * Jennifer Saldaña - 07/29/2024 9:25 AM EDT Images from the original note were not included. PHYSICAL THERAPY [facility] Name/MRN: Sandy Deng ([id number]) Date: 07/29/2024 Hold Note. Pt remains intubated [...] O2 baseline), DM, CKD 4, HTN, CAD, MA (PCI with stents in 2017). at bedside. Pt was admitted to [place] due to confusion and hallucinations. Pt has had episodes of staring off into space per family. Was found to have a subdural hematoma. She reportedly had a fall 1 month ago from bed. states she hit her head on the nightstand. She is on Plavix and ASA for a stent placed 7 years ago. Pt tested positive for COVID on 07/24. Today at [place] ICU she had worsening hypoxia and was placed on NIV but failed. Was ultimately intubated. Noted to be hypotensive and started on levophed. Pt was transferred to [facility] for higher level of care. On arrival [...] 32, pO2 110 Diet: TF Glucerna 1.5 Korey goat rate 40 ml/hr, flushes 35cc Q4H [...] 0400) Pulse 74 (07/29/24 07) Resp 20 (07/29/24699) SpO2 98 % (07/29/24699) Weight 62 kg (136 lb 11 oz) (07/29/24 0500) BMI Body mass index is 22.06 kg/m . I/O: 09/25 0707/29 0659 In: 2652.4 [I.V.:1533.4] Out: 2398 Ventilator: [...] Normal [] Scar/Lesion/Mass Inspection of teeth/lips/gums Dentition: [][place] Teeth []Dentures Lips/Gums: [x]Intact []Lesion Present Mucosa: [x][place] [x]Moist []Dry Neck: External Appearance Overall Appearance: [...] 1850 07/27/24 0530 07/27/24 1427 07/28/24 1257 07/28/24 18007/28/24 23407/29/24 0557 AST 40 28 -- 44 -- -- -- ALT 21 -- -- -- -- PROT 5.5* 4.9* -- 4.6* -- -- -- ALBUMIN 2.9* 2.4* < > 2.2* 2.1* 2.2* 2.0* BILITOT 0.5 0.3 -- 0.5 -- -- -- ALKPHOS 68 66 -- 78 -- -- -- < > = values in this interval not displayed. Glucose: Recent Labs 07/27/24 0530 07/27/24 0950 07/27/24 1427 07/27/24 1506 07/27/24 21107/27/24 2222 07/27/24 2338 07/28/24 0409 07/28/24 0414 07/28/24 0938 07/28/24 1257 07/28/24 1514 07/28/24 18007/28/24200607/28/24 23407/28/24 23407/29/24 0557 07/29/24 [...] 0409 07/29/24 0558 PHART 7.398 7.401 7.502* OTM4CPB 41.9 38.6 32.6* PO2ART 100.1* 120.0* 110.0* UTX9FDE 25.3* 23.4 25.0 K9UDJWXW 30% Oxygen Vent Vent Lactic Acid: Recent [...] PM EDT I have personally performed a ovld-te-tnqp diagnostic evaluation on this patient on date of service07/29/2024. History, labs, imaging studies, and electronic medical record have been reviewed by me. This note documented by the [x]warehouse stocker []TONJA reflects my history, exam, and medical [...] so far today, excludingprocedures. * Cruzito Molina, QUALITY CONTROL OPERATOR - 07/29/2024 3:05 AM EDT 07/29/24 [...] days Referring physician: Kena Heath DO Outpatient Pipe Fitter Welding: Christy Fontenot Reason for Consult: Asked to see/evaluate by [...] CKD 4 - follows with Dr Christy Fontenot ([place]). - On review of available labs, Cr has been 2.4-2.8, last (04/26) Cr 2.4 eGFR 20, 24 hr fbyustu=2517 mg. - Home med includes losartan 25 [...] CKD 4 - follows with Dr Christy Fontenot ([place]). On review of available labs, Cr has been 2.4-2.8, last (04/26) Cr 2.4 eGFR 20, 24 hr naysnor=1398 mg. Home med includes losartan 25 mg [...] Urethral Catheter-Output (mL): 5 mL Urethral Catheter Ujfnmafi-kam-Drssii (mL): 0 mL FIO2 needs: Patient Vitals [...] IRON, TIBC, FERRITIN No results found for: [id number], FOLATE Recent Labs 07/26/24 18507/27/24 0530 07/27/24 1427 07/27/24 2114 07/28/24 0409 [...] studies and notes. Karyn Jones MD Pager [phone] [facility] [phone] * Torito Keyshawn - 07/28/2024 10:43 AM EDT NEUROCRITICAL CARE PROGRESS NOTE Patient Name: Sandy Deng Patient : 1960 Acct: [id number] Date of Admission: 07/26/2024 Room/Bed: T2-213/T2-213 A PCP: Juliet Lujan Interval Events: - Placed on cEEG [...] in 0.9 % sodium chloride 250 mL (Bwb-Nkmcdx-Nepzr) (premix), 2-100 mcg/min, IntraVENous, Continuous, Simone Momin DO, Last Rate: 1.88 mL/hr at 07/28/24 09, 2 mcg/min at 07/28/24 0927 ondansetron ODT [...] mL/hr at 07/28/24 0553, 750 mL/hr at 09/25/24 0553 PrismaSol BGK 4/2.5 CRRT solution, 750 mL/hr, CRRT, Continuous, Karyn Jones MD, Last Rate: 750 mL/hr at 07/28/24551, 750 mL/hr at 07/28/24551 propofol (Diprivan) infusion, 5-50 mcg/kg/min, IntraVENous, Continuous, [...] -- -- 69 20 100 % -- 07/28/2420 -- -- 68 20 100 % -- [...] -- -- 70 20 97 % -- 07/28/24714 -- -- 70 20 97 % -- 07/28/24699 -- -- 70 20 98 % -- 07/28/2445 -- -- 74 20 99 % -- 07/28/24629 -- -- 70 20 97 % -- [...] 416 ms QTC Interval 456 ms P [place] 0 degrees QRS [place] 14 degrees T Wave [place] 0 degrees OK Interval 0 ms Basic metabolic panel Collection [...] 66 ALT 19 AST 28 BILITOT 0.3 @[facility]) ABGs:)No results for input(s): PH, PO2, PCO2, [...] O2 baseline), DM, CKD 4, HTN, CAD, MA (PCI with stents in 2017). at bedside. Pt was admitted to [place] due to confusion and hallucinations. Pt has had episodes of staring off into space per family. Was found to have a subdural hematoma. She reportedly had a fall 1 month ago from bed. states she hit her head on the nightstand. She is on Plavix and ASA for a stent placed 7 years ago. Pt tested positive for COVID on 07/24. Today at [place] ICU she had worsening hypoxia and was placed on NIV but failed. Was ultimately intubated. Noted to be hypotensive and started on levophed. Pt was transferred to [facility] for higher level of care. On arrival [...] 0400) Pulse 71 (07/28/24 0600) Resp 20 (07/28/24 0600) SpO2 98 % (07/28/24599) Weight 61.2 kg (134 lb 14.7 oz) (07/28/24 0500) BMI Body mass index is 21.78 kg/m . I/O: 07/27 0700 - 07/28 0659 In: 2810.8 [I.V.:2421.8] Out: 2731 [Urine:73] Ventilator: [...] Normal [] Scar/Lesion/Mass Inspection of teeth/lips/gums Dentition: [][place] Teeth []Dentures Lips/Gums: [x]Intact []Lesion Present Mucosa: [x][place] [x]Moist []Dry Neck: External Appearance Overall Appearance: [...] 07/27/24 1803 07/27/24 1819 07/27/24 18307/27/24201207/27/24 20407/27/24 2114 07/27/24 2222 07/27/24 2338 07/28/24 0409 07/28/24 0414 GLUCOSE 252* -- 254* -- 83 -- -- -- -- -- -- 87 -- -- 143* -- POCGLU -- < > -- < > -- < > 53* 110* 86 64* 112* -- 88 119* -- 148* < > = values in this interval not displayed. Procal: Recent Labs 07/26/241849 PROCAL 2.48* CBC: Recent Labs 07/26/24184907/26/24 22307/27/24 0507/27/24 0652 07/27/24 1622 07/28/24 0409 WBC 18.7* [...] 1622 07/28/24 0409 PHART 7.286* 7.398 7.401 OZY6OFN 52.3* 41.9 38.6 PO2ART 115.1* 100.1* 120.0* TZK4FXG 24.4 25.3* 23.4 C2GEMXLM 30% Oxygen 30% Oxygen Vent Lactic Acid: [...] and Plan: Principal Problem: SDH (subdural hematoma) ([facility]) Active Problems: COPD (chronic obstructive pulmonary disease) ([facility]) Type 1 diabetes mellitus with kidney complication (HCC) Hyperlipidemia Diabetic neuropathy associated with type 1 diabetes mellitus ([facility]) Assessment/Plan: Stable Small Right Temporal SDH (identified [...] PM EDT I have personally performed a zzxn-vr-nfvb diagnostic evaluation on this patient on date of service07/28/2024. History, labs, imaging studies, and electronic medical record have been reviewed by me. This note documented by the [x]warehouse stocker []TONJA reflects my history, exam, and medical [...] Torres RCP - 07/28/2024 4:53 AM EDT [facility] Respiratory Care Department Progress Note Spontaneous [...] results Recent Labs 07/27/24 1424 07/27/24 1622 07/28/24408 PHART 7.286* 7.398 7.401 HOO5JCE 52.3* 41.9 38.6 PO2ART 115.1* 100.1* 120.0* GVT8IEE 24.4 25.3* 23.4 W0BTHNVY 30% Oxygen 30% Oxygen Vent Does this [...] 24 hours post-extubation. [place] Sahni MA [facility]-MASTICATOR * Delmar Ling OT - 07/27/2024 8:22 AM EDT Images from the original note were not included. OCCUPATIONAL THERAPY [facility] Name/MRN: Sandy Deng ([id number]) Date: 07/27/2024 Intubated, sedated, on bed rest. Will follow. Delmar Ling OT * Jennifer Saldaña - 07/27/2024 7:30 AM EDT Images from the original note were not included. PHYSICAL THERAPY [facility] Name/MRN: Sandy Deng ([id number]) Date: 07/27/2024 Screen Note. Pt remains intubated [...] 2017). at bedside. Pt was admitted to [place] due toconfusion and hallucinations. Pt has had episodes of staring off into space per family. Was found to have a subdural hematoma. She reportedly had a fall 1 month ago from bed. states she hit her head on the nightstand. She is on Plavix and ASA for a stent placed 7 years ago. Pt tested positive for COVID on 07/24. Today at [place] ICU she had worsening hypoxia and was placed on NIV but failed. Was ultimately intubated. Noted to be hypotensive and started on levophed. Pt was transferred to [facility] for higher level of care. On arrival [...] Infusions:fentaNYL, 25-200 mcg/hr, Last Rate: 100 mcg/hr (07/27/24543) norepinephrine, 2-100 mcg/min, Last Rate: 2 mcg/min (07/27/24705) PrismaSol BGK 2/3.5, 750 mL/hr, Last Rate: 750 mL/hr (07/27/24238) PrismaSol BGK 2/3.5, 750 mL/hr, Last Rate: 750 mL/hr (07/27/24238) PrismaSol BGK 2/3.5, 750 mL/hr, Last Rate: 750 mL/hr (07/27/24238) propofol, 5-50 mcg/kg/min, Last Rate: 20 mcg/kg/min (07/27/24229) sodium bicarbonate 150 mEq in sterile water 1,000 mL infusion, 75 mL/hr, Last Rate: 75 mL/hr (07/27/244) vasopressin, 0.01-0.03 Units/min, Last Rate: 0.03 Units/min (07/26/242244) Objective: Last Vitals: BP MAP (!) 135/39 (07/27/24 0000) 64 (07/27/24 0000) Arterial BP MAP 174/58 (07/27/24629) 96 mmHg (07/27/24629) Temp 37.3 C (99.1 F) (07/27/24 0400) Pulse 56 (07/27/24629) Resp 14 (07/27/24629) SpO2 100 % (09/24/24 0630) Weight 48 kg (105 lb 13.1 [...] Normal [] Scar/Lesion/Mass Inspection of teeth/lips/gums Dentition: [][place] Teeth []Dentures Lips/Gums: [x]Intact []Lesion Present Mucosa: [x][place] [x]Moist []Dry Neck: External Appearance Overall Appearance: [...] 2.0 PHOS 8.5* 6.8* LFTs: Recent Labs 07/26/24 18507/27/24 0530 AST 40 28 ALT 21 19 PROT 5.5* 4.9* ALBUMIN 2.9* 2.4* BILITOT 0.5 0.3 ALKPHOS 68 66 Glucose: Recent Labs 07/26/24 18507/27/24 0150 07/27/24 0517 07/27/24 0530 GLUCOSE 252* -- -- 254* POCGLU -- 320* 283* -- Procal: Recent Labs 07/26/24 185 PROCAL 2.48* CBC: Recent Labs 07/26/24 18507/26/24 22307/27/24 0530 07/27/24 0652 WBC 18.7* -- 14.5* -- HGB 10.1* 8.1 8.8* 9.9 HCT 31.3* -- 27.2* -- PLT 244 -- 186 -- MCV 88.7 -- 88.0 -- RDW 15.5* -- 15.3* -- ABGs: Recent Labs 07/26/24223107/27/24 0652 PHART 7.166* 7.214* AXX8SYP 30.4* 53.5* PO2ART 95.4 108.9* MAL7THH 10.7* 21.1 B0ZYEECX Vent Vent Lactic Acid: Recent Labs 07/26/24 1850 LACTATE 0.9 INR: No results for input(s): INR in the last 72 hours. Cardiac Injury Profile: Recent Labs 07/26/24184907/26/24 2156 07/27/24 0246 TROPONINI 0.013 0.014 0.017 [...] and Plan: Principal Problem: SDH (subdural hematoma) ([facility]) Active Problems: COPD (chronic obstructive pulmonary disease) ([facility]) Type 1 diabetes mellitus with kidney complication ([facility]) Hyperlipidemia Diabetic neuropathy associated with type 1 diabetes mellitus ([facility]) Assessment: Acute on chronic hypoxemic, hypercapneic respiratory [...] PM EDT I have personally performed a dirb-nx-sfic diagnostic evaluation on this patient on date of service07/27/2024. History, labs, imaging studies, and electronic medical record have been reviewed by me. This note documented by the [x]warehouse stocker []TONJA reflects my history, exam, and medical [...] CKD, on ASA/Plavix who initially presented to [facility] on 07/[facility] with acute respiratory distress and acutedelirium. She was found to be hypoxic and hypercarbic, and COVID positive. She continued to be delirious and did not tolerate NIV, and today required intubation. A CT head was done to evaluate her altered mental status, and she was found to have a small acute right sided SDH vs. epidural hematoma. For this reason, [facility] consulted for further neurologic management and [...] PLAN: 63 y.o. female s/p presented to [facility] ED with confusion since the prior night [...] SDH -patient admitted yesterday after transfer from [place] with hypoxic respiratory failure, known COPD hx, [...] minutes (including chart/data review/analysis, care coordination, and zhzs-qu-mvgp encounter), and was spent discussing/counseling the patient/family [...] & Acute Care Surgery Department of Surgery [facility] Pager: [phone] ~~~~~~~~~~~~~~~~~~~~~~~~~~~~~~~~~~~~~~~~~~~~~~~~~~~~~~~~~~~~~ This note may have been dictated using MyMedMatch Medical Practice Edition 2.6 and/or Virtuix Voice Recognition Feature. The document was proofread; however, unrecognized voice recognition diplomatic interpreter errors may be present. * Joni Monson [...] epidural hematoma and patient was transferred to [facility]. She was placed on levophed. She is [...] call with any questions. Joni Monson MD [facility] ([facility]) Office phone: [phone] Office fax: [phone] 07/27/2024 documented in this encounterSumma [id number] Miscellaneous Notes* Care Coordination - Otilia Arellano RN - 08/10/2024 11:38 AM EDT Active with pipeline dispatcher brenna ext [phone] per , tcc called left VM regarding discharge plan. At today , [facility] , at bedside aware and agree to plan .. * Care Coordination - Unknown Case Management - 08/10/2024 10:00 AM EDT Patient Choice Patient Name: SANDY DENG Date of : 1960 All Providers Sent Referral Name: [facility] Address: [address] [place] [address] Name: [facility] Phone: [phone] Address: [address] [place] [address] Name: [facility] Phone: [phone] Address: [address] [place] [address] Name: [facility] Address: [address] [place] [address] Name: [facility] Address: [address] [place] [address] Name: [facility] Phone: [phone] Address: [address] [place] [address] * Care Coordination - SAPNA Richards - 08/10/2024 9:59 AM EDT Transportation set via cot through [employer] for today 08-10-24 @2pm to [facility]. ROSALINE, RN, Funeral Pre Need Consultant, facility, Pt, and Pt's Jose notified. * Care Coordination - Kimberlee Valdovinos - 08/10/2024 8:14 AM EDT Discharge med list transmitted to REHAB- [facility] via Careport per TCC request. * Care Coordination - Otilia Arellano RN - 08/10/2024 6:15 AM EDT She is approved 08/09-08/16 to [facility], [facility] to send mar today . Med [...] Outcome: Progressing * Care Coordination - Otilia Arellnao RN - 08/09/2024 1:32 PM EDT Tcc met with , aware [facility] accepted , and auth has been submitted, tcc portion of chelo done . Need attending done , notified tx team . he stated she has been to class at [facility] . And that is the out [...] Need accepting rehab center- tcc messaged to [place] and [facility] and [facility] to see who can [...] out pt HD , [facility], did not prefer days anything will [...] 8:29 AM EDT [facility] per TCC request. Referral placed to SNF [facility] via Careport per TCC request. Await review and response regarding ability to accept. TCC notified. * Care Coordination - Otilia Arellano RN - 08/06/2024 6:50 AM EDT Transfer from [facility], complex discharge, need HD, recent covid, per PT/OT need rehab, live in [place], ready for discharge soon, not today , [...] and too far as she lives in [place] area, will get lists to bedside and [...] if able 08/05. CM [facility] per secure chat we are back to not having a dialysis bed available. you should likely make other plans for her. CM explained by [facility] liaison, not willing to start auth until HD bed available. CM notes that [facility] IPR nor [facility] IPR have in house HD. Patient was hoping to have IPRwith in house HD. CM will discuss with patient, as able, for other options than IPR at [facility]. [place] and [facility] are locations not yet offered/confirmed if they have HD beds available. Discharge Plan: IPR vs SNF. Awaiting additional facility choices/discussion, clinical stability and medical clearance. Will continue to follow with [facility]. Length of Stay (Days): 11 GMLOS: [...] Re-introduced myself and role. Discussed discharge planning. [facility] does not have inpatient diaylsis. Patient would prefer to participate in IPR at [facility] where IPHD is available. CM updated facilities. Discharge Plan: [facility]. Awaiting OT eval, facility precert, clinical stability and medical clearance. Will continue to follow with [facility]. Length of Stay (Days): 9 GMLOS: 5.1 * Care Coordination - Shilo Bose - 08/03/2024 2:05 PM EDT Referral placed to Rehab - [facility] via Careport per TCC request. Await review and response regarding ability to accept. TCC notified. * Care Coordination - Shaniqua Parker RN - 08/03/2024 1:53 PM EDT Care Management Progress Note Chart reviewed. Patient admitted to [facility] ICU for SDH 07/26/2024. Consults to IP [...] agreeable to rehab at discharge. CM tasked [facility] to send referrals to [facility] and [facility] for IPR and iHD. Discharge Plan: [facility] and [facility]. Awaiting facility acceptance, facility precert, clinical stability and medical clearance. Will continue to follow with [facility]. Length of Stay (Days): 8 GMLOS: [...] Yes, addressed in today's progress note Anticipated [facility] Medications (ICU initiated) or Dose Changes and [...] 24 hours of ICU transfer, page ICU [place] [facility] for clarifications. * Care Coordination - Shaniqua Parker RN - 08/02/2024 10:33 AM EDT Images from the original note were not included. Care Management Progress Note Chart reviewed. Patient admitted to [facility] ICU for SDH 07/26/2024. Consults to IP [...] Progress Note Chart reviewed. Patient admitted to [facility] ICU for SDH 07/26/2024. Consults to IP [...] Parker RN 07/27/2024 7:48 AM 07/30/2024 Clara Mayes, 07/26/2024 5:12 PM Length of Stay (Days): [...] Progress Note Chart reviewed. Patient admitted to [facility] ICU for SDH 07/26/2024. Consults to IP [...] Assess Permission given to speak with patient community relations representative/caregiver as indicated: Confirmation of Payer with patient/family: Payer Name: [employer] [place]: Confirmation of Primary Care Physician: PCP Name: Juliet Lujan Seen in last 2 years?: Yes [...] Information: Chart reviewed. [facility]. Consults to IP CONSULT TO NEUROSURGERY IP CONSULT TO NEUROLOGY IP CONSULT TO NEPHROLOGY Initial Assessment: IA completed with chart review. Patient transferred from [facility]. NOK listed. Patient has insurance, prescription coverage and active with PCP. CM called PCP office spoke with BO Walker to confirm patient active. Discharge Planning/Barrier: Intubated/sedated. Art line. TLC CVC. HDC. CRRT. N/OGT. NPO. Johnson. IV qtt - levophed, vasopressin PT/OT/MASTICATOR pending. CM [facility] follow [facility]. Discharge Plan: TBD. Awaiting clinical stability and medical clearance. Will [facility] to [facility] with [facility]. Shaniqua Parker RN documented in this [facility]10-08-2024 [facility] 08-09-2024 Hospital Discharge instructions* Discharge Instr - CHELO* Jim Rodriguez RN - 08/09/2024 1:31 PM EDT Images from the original note were not included. Continuity of Care Form Patient Name: Sandy Deng : 1960 Admit date: 07/26/2024 Discharge date: 08/10/2024 Code Status Order: Full Code Advance Directives: N Admitting Physician: Ino Conte MD PCP: Juliet Lujan Discharging Nurse: Jim SORIANO Discharging Hospital Unit/Room#: W3-339/W3-339 B Discharging Unit Phone Number: [phone] Emergency Contact: Extended Emergency Contact Information Primary Emergency Contact: Bobbi Steward Mobile Relation: Daughter Preferred language: Equatorial [place]an Director Learning And Development needed? No Secondary Emergency Contact: Jose Deng Mobile Relation: Spouse Preferred language: [place] Director Learning And Development needed? No Past Surgical History: Past Surgical [...] assistance Toileting Minimal assistance Feeding Minimal assistance Knowledge Management Advisor Total assistance Med Delivery yes Wound Care [...] Date: 07/26/24 Discharging to Facility/ Agency Name: [facility] Address: [address] [place] [address] Fax: Dialysis Facility (if applicable) Name: [facility] in [place] is preference at out pt if needed Address: Dialysis Schedule: Phone: Fax: Metal Worker/Early Years Teacher signature: at1:31 PM PHYSICIAN SECTION Name: Sandy [...] to a nursing facility directly from an [facility] or a unit of a [facility] that is not operated by or licensed by [facility] under section 5119.14 or 5160-3-15.1 5 The [...] in H&P PHYSICIAN SIGNATURE: documented in this [facility]10-01-2024 NoteRef[facility] TCC request. Await review and response regarding ability to accept. TCC notified. Electronically signed by [facility]09-26-2024 [facility]09-26-2024 Procedure note* Armen Diaz MD PhD - 07/29/2024 12:43 PM EDTAssociated Order(s): EEG CONTINUOUS MONITORING Images from the original note were not included. [facility] [address] [place] [address] CONTINUOUS LONG-TERM VIDEO EEG MONITORING REPORT Patient Name: Sandy Deng : 1960 Date of Study: 07/29/2024 Duration Recorded: 14:59:56 EEG#: [id number] WATCH ASSEMBLY INSTRUCTOR: LIBRA Peters CLTM PROVIDER REQUESTING STUDY: Dr. Mahajan REASON FOR EXAM: Evaluate for epileptiform activity DIAGNOSIS TAG: Subdural Hemorrhage (SDH) HISTORY: Sandy Deng is a 63 y.o. female with history of COPD (3L O2 baseline), DM, CKD 4, HTN, CAD (PCI with stents in 2017). at bedside. Pt was admitted to [facility] due to confusion and hallucinations. Pt has had episodes of staring off into space per family. Was found to have a subdural hematoma. She reportedly had a fall 1 month ago from bed. states she hit her head on the nightstand. She is on Plavix and ASA for a stent placed 7 years ago. Pt tested positive for COVIDon 07/24. Today at [facility] ICU she had worsening hypoxia and was placed on NIV but failed. Was ultimately intubated. Noted to be hypotensive and started on levophed. Pt was transferred to [facility] for higher level of care. On arrival [...] premix 2,000 mg IntraVENous Once Joycelyn Diane, dexAMETHasone (Decadron) injection 6 mg 6 mg [...] in 0.9 % sodium chloride 250 mL (Ruh-Zilvmx-Hjaou) (premix) 2-100 mcg/min IntraVENous Continuous Saif-Mario Alberto Merrill, DO 1.88 mL/hr at 07/29/24 1222 2 [...] CRRT solution 750 mL/hr CRRT Continuous Karyn P Nancyomali, MD 750 mL/hr at 07/29/24 0302 750 [...] mL/hrat 07/29/24 1120 25 mcg/kg/min at 07/29/24 112 remdesivir (Veklury) 100 mg in sodium chloride 0.9 % 250 mL IVPB 100 mg IntraVENous q24h Kena Heath DO Stopped at 07/28/242027 sodium chloride 0.9 % bolus 30 mL 30 mL IntraVENous PRN Kena Heath DO sodium chloride 0.9 % infusion 75 mL/hr IntraVENous PRN Clara Mayes, DO TECHNICAL ASPECTS: This continuous scalp EEG study with video was carried out at [facility]. Scalp electrodeswere positioned in person by an chief ultrasound technologist, following patient education, according to the 10-20 International system of electrode placement and maintained for integrity and quality of the recording. EEG data with video was recorded continuously and digitally stored. The chief ultrasound technologist reviewed all automated detections and manual [...] delta-theta range (0.5- 6.5 Hz, 20-55 uV) bulwbhtff-in-vmwshclzeiukjp slowing was seen unresponsive to stimulation. At times, intermixed generalized periodic discharges with triphasic morphology and wfzazlag-gx-lgymhrkgj phase delay are observed(0.5-1.5 Hz, 70-120 uV). 12:25:37 -Continuous slowing, generalized + triphasic waves (Referential to average, LFF=1Hz, HFF=30Hz, Sens=5 uV/mm) INTERICTAL EPILEPTIFORM ACTIVITY: No epileptiform activity was seen. ICTAL ACTIVITY: No ictal activity was seen. NON-EPILEPTIC EVENTS: None ACTIVATION PROCEDURES: Photic stimulation was not performed. Hyperventilation was not performed. IMPRESSION AND ACTIONS TAKEN: This continuous EEG with video is abnormal. Continuous diffuse jrdeogfw-xs-msowmd slowing is seen with intermixed triphasic waves. [...] from the original note were not included. [facility] [address] [place] [address] CONTINUOUS LONG-TERM VIDEO EEG MONITORING REPORT Patient Name: Sandy Deng : 1960 Date of Study: 07/28/2024 Duration Recorded: 23:48:31 EEG#: [id number] WATCH ASSEMBLY INSTRUCTOR: LIBRA Peters CLTM PROVIDER REQUESTING STUDY: Dr. Mahajan REASON FOR EXAM: Evaluate for epileptiform activity DIAGNOSIS TAG: Subdural Hemorrhage (SDH) HISTORY: Sandy Deng is a 63 y.o. female with history of COPD (3L O2 baseline), DM, CKD 4, HTN, CAD (PCI with stents in 2017). at bedside. Pt was admitted to [place] due to confusion and hallucinations. Pt has had episodes of staring off into space per family. Was found to have a subdural hematoma. She reportedly had a fall 1 month ago from bed. states she hit her head on the nightstand. She is on Plavix and ASA for a stent placed 7 years ago. Pt tested positive for COVIDon 07/24. Today at [place] ICU she had worsening hypoxia and was placed on NIV but failed. Was ultimately intubated. Noted to be hypotensive and started on levophed. Pt was transferred to [facility] for higher level of care. On arrival [...] in 0.9 % sodium chloride 250 mL (Syi-Bhjhhk-Servy) (premix) 2-100 mcg/min IntraVENous Continuous Simone Momin [...] study with video was carried out at [facility]. Scalp electrodeswere positioned in person by an chief ultrasound technologist, following patient education, according to the 10-20 International system of electrode placement and maintained for integrity and quality of the recording. EEG data with video was recorded continuously and digitally stored. The chief ultrasound technologist reviewed all automated detections and manual [...] delta-theta range (0.5- 6.5 Hz, 20-55 uV) hppntckmq-cs-awqhkrhfzttgjn slowing was seen unresponsive to stimulation. 12:04:28 -Continuous slowing, generalized (Referential to average, LFF=1Hz, HFF=30Hz, Sens=5 uV/mm) INTERICTAL EPILEPTIFORM ACTIVITY: No epileptiform activity was seen. ICTAL ACTIVITY: No ictal activity was seen. NON-EPILEPTIC EVENTS: None ACTIVATION PROCEDURES: Photic stimulation was not performed. Hyperventilation was not performed. IMPRESSION AND ACTIONS TAKEN: This continuous EEG with video is abnormal. Continuous diffuse iqumhliu-zg-lteynu slowing is seen unresponsive to stimulation. No interictal epileptiform activity nor seizures are observed. Compared with the previous day of recording, a cyclic alternating pattern of encephalopathy (CAPE) is no longer observed. These findings remain indicative of a potentially worsening mdphnoqe-ag-rfqscz global encephalopathy nonspecific as to etiology. Jasmeet Arevalo, PhD Clinical Neurophysiologist Armen Diaz MD PhD Epilepsy Attending * Armen Diaz MD PhD - 07/27/2024 1:43 PM EDTAssociated Order(s): EEG CONTINUOUS MONITORING Images from the original note were not included. [facility] [address] [place] [address] CONTINUOUS LONG-TERM VIDEO EEG MONITORING REPORT Patient Name: Sandy Deng : 1960 Date of Study: 07/27/2024 Duration Recorded: 10:39:13 EEG#: [id number] WATCH ASSEMBLY INSTRUCTOR: LIBRA Peters CLTM PROVIDER REQUESTING STUDY: Dr. Mahajan REASON FOR EXAM: Evaluate for epileptiform activity DIAGNOSIS TAG: Subdural Hemorrhage (SDH) HISTORY: Sandy Deng is a 63 y.o. female with history of COPD (3L O2 baseline), DM, CKD 4, HTN, CAD (PCI with stents in 2017). at bedside. Pt was admitted to [facility] due to confusion and hallucinations. Pt has had episodes of staring off into space per family. Was found to have a subdural hematoma. She reportedly had a fall 1 month ago from bed. states she hit her head on the nightstand. She is on Plavix and ASA for a stent placed 7 years ago. Pt tested positive for COVIDon 07/24. Today at [facility] ICU she had worsening hypoxia and was placed on NIV but failed. Was ultimately intubated. Noted to be hypotensive and started on levophed. Pt was transferred to [facility] for higher level of care. On arrival [...] injection 6 mg 6 mg IntraVENous q24h eKna Heath DO 6 mg at 07/26/24 2027 [...] solution 3 mL 3 mL Nebulization BID eDacon Mazariegos MD 3 mL at 07/27/24 0839 [...] in 0.9 % sodium chloride 250 mL (Mmc-Cvqwzd-Nyrzx) (premix) 2-100 mcg/min IntraVENous Continuous Simone Momin, DO 4.69 mL/hr at 07/27/24 1238 [...] study with video was carried out at [facility]. Scalp electrodeswere positioned in person by an chief ultrasound technologist, following patient education, according to the 10-20 International system of electrode placement and maintained for integrity and quality of the recording. EEG data with video was recorded continuously and digitally stored. The chief ultrasound technologist reviewed all automated detections and manual [...] upper axial body and head, with subtle jsmb-gxf-ymgeg head movements at a frequency of 4 [...] abnormal states. State 1is characterized by continuous sgxmorup-al-jnwhkh diffuse slowing. State 2 features lower amplitudeand [...] upper axial body and head, with subtle fxfc-qxh-nszqc head movements. This activity ended with a transition to CAPE State 2. The findings are supportive of a yeahbupm-cs-irgoet global encephalopahy non- specific as to etiology. [...] documented as signed by this procedure note [employer]: Dr. Knox The attending physician was physically [...] documented as signed by this procedure note [employer]: Dr. Concepcion The attending physician was physically present while the proceduralist performed cantrell/critical components of the procedure. Attending: Dr. Concepcion Associated attestation - Mynor Concepcion DO - 07/27/2024 12:52 AM EDT I have reviewed and agree with the resident/fellow/TONJA note I was physically present for cantrell elements of the procedure Complications during procedure: None documented in this [facility]09-25-2024 [facility] 07-28-2024 Consult note* Shanti García RD - [...] loss Fluid Accumulation: No significant fluid accumulation Geological Manager Strength: Not Performed Nutrition Assessment: Pt is a 63-year-old female with multiple medical co-morbidities including Type I DM (on insulin pump), COPD on 4L home O2, CKD4, on ASA/Plavix who initially presented to [facility] on 07/23 withacute respiratory distress and acute delirium. Reportedly had a fall from bed, hit head on the nightstand (one month [employer]). She was found to be hypoxic and hypercarbic, and COVID positive. She continued to be delirious and did not tolerate NIV, and required intubation 07/27/24. A CT head was done to evaluate her altered mental status, and she was found to have a small acute right sided SDH vs. epidural hematoma. For this reason, [facility] consulted for further neurologic management and [...] On: Kcal/kg Weight Used for Energy Requirements: [place] Weight for Energy Calculation (kg): 59 kg Total Energy Requirements (kcals/day): 25-30 kcals/kg = 3711-9554 kcals/day Weight Used for Protein Requirements: [place] Weight in Kg Used for Protein Requirements: [...] lb 13.1 oz) Weight Source: Not Specified [place] Body Weight (lbs) (Calculated): 130 lbs [place] Body Weight (Kg) (Calculated): 59 kg % [place] Body Weight (Calculated): 81.4 % BMI (kg/m2) [...] soon to determine Shanti García RD,LD,CNSC Contact: *[phone] or [phone] Chat * Torito Mahajan - 07/27/2024 2:11 PM EDTAssociated Order(s): IP CONSULT TO NEUROLOGY NEUROCRITICAL CARE CONSULT NOTE Patient Name: Sandy Deng Patient : 1960 Acct: [id number] Date of Admission: 07/26/2024 Room[facility]: [facility] PCP: Juliet Lujan Chief Complaint: encephalopathy History of Present [...] mg, 10 mg, IntraVENous, q2h PRN, Deacon Mazarieogs MD insulin regular 100 units in 100 [...] in 0.9 % sodium chloride 250 mL (Akk-Ajumwz-Zahfv) (premix), 2-100 mcg/min, IntraVENous, Continuous, Simone Momin [...] 448 ms QTC Interval 459 ms P [place] 82 degrees QRS [place] -71 degrees T Wave [place] 88 degrees [place] Interval 98 ms Procalcitonin Test Collection Time: [...] 66 ALT 19 AST 28 BILITOT 0.3 @[facility] ABGs:)No results for input(s): PH, PO2, PCO2, [...] Name: Sandy Deng Patient : 1960 PCP: Juliet Lujan History of Present Illness: 63 y/o F with PMHx of COPD, DM, HLD, CKD on ASA/Plavix who was found to have a small, right posterior temporal acute SDH for which neurosurgery has been consulted. Per report, patient initially presented to [facility] with respiratory distress and delirium.She was ultimately [...] 448 ms QTC Interval 459 ms P [place] 82 degrees QRS [place] -71 degrees T Wave [place] 88 degrees [place] Interval 98 ms Procalcitonin Test Collection Time: [...] sign-off at this time Romero Wright MD [facility] Neurosurgery I spent 60 minutes of my independent time evaluating the patient, reviewing the medical record, andcounseling/coordinating care regarding her acute SDH. * Karyn Jones MD - 07/27/2024 10:12 AM EDTAssociated Order(s): IP CONSULT TO NEPHROLOGY Images from the original note were not included. Initial Nephrology Consult Note Patient: Sandy Deng Room number: T2/T2 A Date of Admit: 07/26/2024 LOS: 1 days Referring physician: Kena Heath DO Outpatient Pipe Fitter Welding: Christy Fontenot Reason for Consult: Asked to see/evaluate by [...] CKD 4 - follows with Dr Christy Fontenot ([facility]). - On review of available labs, Cr has been 2.4-2.8, last (04/26) Cr 2.4 eGFR 20, 24 hr zhyyvcw=1011 mg. - Home med includes losartan 25 [...] epidural hematoma and patient was transferred to [facility]. She was placed on levophed. Initial labs [...] CKD 4 - follows with Dr Christy Fontenot ([place]). On review of available labs, Cr has been 2.4-2.8, last (04/26) Cr 2.4 eGFR 20, 24 hr bxsoyvr=6001 mg. Home med includes losartan 25 mg [...] IRON, TIBC, FERRITIN No results found for: [id number], FOLATE Recent Labs 07/26/24 18507/27/24 0530 NA 125* 130* K 5.5* 4.3 [...] studies and notes. Karyn Jones MD Pager [phone] [facility] [phone] Greater than 65 min of time spent on prepping chart, reviewing outpt pcp/specialty development consultant notes/cumulative labs, imaging, FTF time, interpretation [...] 2017). at bedside. Pt was admitted to [facility] due to confusion and hallucinations. Pt has had episodes of staring off into space per family. Was found to have a subdural hematoma. She reportedly had a fall 1 month ago from bed. states she hit her head on the nightstand. She is on Plavix and ASA for a stent placed 7 years ago. Pt tested positive for COVID on 07/24. Today at [facility] ICU she had worsening hypoxia and was placed on NIV but failed. Was ultimately intubated. Noted to be hypotensive and started on levophed. Pt was transferred to [facility] for higher level of care. On arrival [...] Normal [] Scar/Lesion/Mass Inspection of teeth/lips/gums Dentition: [x][place] [facility]eth []Dentures Lips/Gums: [x]Intact []Lesion Present Mucosa: [x][place] [x]Moist []Dry Neck: External Appearance Overall Appearance: [...] 1.5* PHOS 8.5* LFTs: Recent Labs 07/26/24 1850 AST 40 ALT 21 PROT 5.5* ALBUMIN 2.9* BILITOT 0.5 ALKPHOS 68 Glucose: Recent Labs 07/26/24 1850 GLUCOSE 252* Procal: Recent Labs 07/26/24 1850 PROCAL 2.48* CBC: Recent Labs 07/26/24 1850 WBC 18.7* HGB 10.1* HCT 31.3* PLT 244 MCV 88.7 RDW 15.5* Lactic Acid: Recent Labs 07/26/24 1850 LACTATE 0.9 Cardiac Injury Profile: Recent Labs [...] AM EDT I have personally performed a cdgr-oo-gdis diagnostic evaluation on this patient on date of ofpgkuz18/23/24. History, labs, imaging studies, and electronic medical record have been reviewed by me. This note documented by the [x]warehouse stocker []TONJA reflects my history, exam, and medical decision making. I have reviewed and agree with the care plan. Changes were made in the orders as necessary. ROS documentation was reviewed and negative unless otherwise stated in HPI. Assessment: Acute hypoxic, hypercapnic respiratory failure COVID19 pneumonia Acute metabolic encephalopathy R SDH, small/subacute Severe NAGMA UMA/CKD Plan: Continue mech vent support Add COVID19 rx incl decadron, remdes -->confirm COVID19 result from [facility] Follow-up micro studies and adjust abx Concern [...] failure is 35 minutes. documented in this encounterSAshtabula General [id number] [facility] [employer] 07-27-2024 NoteAcceptable Specimen? Acceptable Specimen(Evaluation not needed) Gram Stain 3+ White Blood Cells No Epithelial cells 3+ Gram positive cocci 1+ Gram negative rodsWLancaster Municipal HospitalComment on above:Performed By: #### M100.2400, M100.1999 ####[facility] [address] [place], [phone] [facility] 07-26-2024 [facility]09-23-2024 [facility] 07-26-2024 History and physical note* Deacon Mazariegos MD - 07/26/2024 4:37 PM EDT Images from the original note were not included. [facility] SICU H&P 07/26/2024 6:01 PM Attending: Dr. Holbrook Chief Complaint: Brain Bleed History of Present Illness: 63 y.o. female presented to [facility] ED with confusion since the prior night [...] ADDENDUM I personally supervised the resident or SHORTS SIFTER/PA-C in the evaluation and development of a [...] CKD, on ASA/Plavix who initially presented to [facility] on 07/23 (3 days ago) with acute [...] sided SDH vs.epidural hematoma. For this reason, [facility] kory consulted for further neurologic management and she was transferred to SICU. I spoke to the patient's , son, and sister who were present at the patient's bedside. They report that leading up to her visit to [facility] ED she was acting delirious and frequently getting outof bed in the middle of night. She may have hit her head during one of these episodes, however she did not have a fall or witnessed head trauma during her brief hospitalization at [facility]. I reviewed her CT head from [facility] [...] MD Division of Trauma Department of Surgery [facility] documented in this encounterSAshtabula General [id number] [facility]07-18-2023 Procedure [facility] Narrative - Reported* ChiefComplaintFreeTextNoteForm_: * Kidney transplant surgical evaluation for potential active candidacy on kidney transplant list [id number] [place] [address] Work Phone: Discharge summary Author Shivani [facility] Note Date/Time June 02, 2025 7:23 am [facility] Medical Records Department [address] [place] [address] Emergency Department Summary 06/02/25 MR#: [id number] Acct: [id number] Name: SANDY DENG Rep #:[id number] 13 : 1960 64 From: Shivani Wright PCP: Dr. Juliet Lujan MD Status :REG ER Location: ED HPI History of Present Illness Chief Complaint: Shortness of Breath Informant: patient and spouse/S.O. Narrative Narrative: Patient 64-year-old female with history of end-stage renal disease, chronic respiratory failure on 3 L of oxygen at baseline, type 1 diabetes mellitus presenting for confusion and concern for low oxygen. Patient was actually discharged from the hospital yesterday (did receive hemodialysis). She been hospitalized for fluid overload, shortness of breath and fistula stenosis. She underwent fistulogram with angioplasty and had balloon dilation. statesthat she has been very fatigued and weak since being home. She was sleeping with her CPAP on when the power went out. The CPAP switched to battery power however she was not receiving supplemental oxygen. felt that she was difficult to awake and he could not get a pulse ox reading on her. He called EMS. He did switch her to portable oxygen. She was 85-90% on room 2 when EMS arrived. She is brought to the ER for further ration. Patient has no complaints but is quite sleepy. No other complaints or concerns reported at this time. She has not put her insulin pump back on either since being home as she just got home yesterday. [facility] Medical History Chronic hypoxic respiratory failure On [...] Anxiety Depression Atherosclerosis of coronary artery of [place] heart without angina pectoris NSTEMI (non-ST elevated [...] denosumab 60 mg/mL subcutaneous 60 mg subcut [id number] bone health 06/10/24 07/09/24 Rx syringe (Prolia) [...] 800 mg PO TID PRN To lower 12/14/24 01/03/25 History Phosphorus blood-glucose sensor (FreeStyle #6 ea 02/09/25 Unknown [...] 25 mcg #3 ea inhalat.powder (Trelegy Ellipta) calcitriol 0.5 mcg capsule 0.5 mcg PO DAILY supplement 05/31/25 Unknown History potassium chloride 20 mEq 20 meq PO BID potassium 05/04 07/28 Unknown History tablet,extended release(part/cryst) pseudoephedrine-guaifenesin ER 60 1 tab PO BID PRN col d symptoms 06/02/25 Unknown History mg-600 mg tablet,extend release 12hr (Mucinex D) Allergy/AdvReac Type Severity Reaction Status Date / [...] Yes ROS ROS ED Constitutional Constitutional ED: Reports other Details: Somnolent ; Denies chills or fever(s) Cardiovascular Cardiovascular: Denies chest pain Respiratory/Chest Respiratory/Chest: Denies cough or dyspnea Gastrointestinal Gastrointestinal: Denies vomiting Integumentary Denies rash Neurologic Neurologic: Reports weakness Psychiatric Psychiatric: Denies anxiety Hematologic/Lymphatic Hematologic/Lymphatic: Reports easy bleeding and easy bruising EXAM Physical Exam Const Vital Signs: 06/02/25 04:21 06/02/25 04:45 06/02/25 04:47 Temperature 94.7 F L Temperature Source Axillary Pulse Rate 60 58 L 57 L Respiratory Rate 25 H 24 H 24 H Respiratory Effort Blood Pressure 103/34 L Blood Pressure Mean 57 Pulse Ox 93 100 100 Oxygen Delivery Method Room Air Oxygen Flow Rate (L/min) Fraction of Inspired Oxygen (FIO2) 40 06/02/25 04:52 06/02/25 05:00 06/02/25 05:10 Temperature Temperature Source Pulse Rate 55 L Respiratory Rate 17 Respiratory Effort Short of Breath Blood Pressure 103/45 L Blood Pressure Mean 63 Pulse Ox Oxygen Delivery Method Bi-pap Oxygen Flow Rate (L/min) 40 Fraction of Inspired Oxygen (FIO2) 35 06/02/25 05:15 06/02/25 05:30 06/02/25 05:30 Temperature Temperature Source Pulse Rate 55 L 58 L Respiratory Rate 21 H 20 H Respiratory Effort Blood Pressure 98/37 L 68/56 L Blood Pressure Mean 55 62 Pulse Ox 90 Oxygen Delivery Method Oxygen Flow Rate (L/min) Fraction of Inspired Oxygen (FIO2) 06/02/25 05:38 06/02/25 05:45 06/02/25 06:00 Temperature Temperature Source Pulse Rate 53 L 54 L Respiratory Rate 18 18 Respiratory Effort Blood Pressure 97/37 L 95/41 L 99/35 L Blood Pressure Mean 55 57 55 Pulse Ox Oxygen Delivery Method Oxygen Flow Rate (L/min) Fraction of Inspired Oxygen (FIO2) 06/02/25 06:15 06/02/25 06:30 06/02/25 06:40 Temperature Temperature Source Pulse Rate 54 L 72 55 L Respiratory Rate 16 17 21 H Respiratory Effort Blood Pressure 101/32 L 98/39 L 94/39 L Blood Pressure Mean 53 56 55 Pulse Ox Oxygen Delivery Method Oxygen Flow Rate (L/min) Fraction of Inspired Oxygen (FIO2) 06/02/25 06:45 Temperature Temperature Source Pulse Rate 55 L Respiratory Rate 20 H Respiratory Effort Blood Pressure 98/38 L Blood Pressure Mean 55 Pulse Ox Oxygen Delivery Method Oxygen Flow Rate (L/min) Fraction of Inspired Oxygen (FIO2) Positive cachectic General Appearance ED: cachectic and NAD Nutritional Appearance: cachectic HEENT Reports moist mucous membranes Neck supple Neck Narrative: Positive JVD Chest Wall inspection of chest normal Resp Resp Narrative: Mildly tachypneic. Scattered wheezing present. Cardio regular rate and regular rhythm GI normal to inspection, nondistended, normoactive bowel sounds and non-tender Extremity Extremity Narrative: AV fistula with palpable thrill in the right arm General Extremety ED: Negative for edema General Extremity: Negative for edema Neuro Neuro Narrative: Somnolent but arouses to verbal stimuli. Generally weak. Quickly goes back to sleep. Will answer some questions when pressured. Is A and O x 3. Skin no rashes or lesions noted MDM MDM MDM Narrative Medical decision making narrative: Patient via for concern of shortness of breath and increased somnolence. Her home O2 when out due to power outage. Differential includes hypercapnia, chronic hypoxia, hypoglycemia, hyperglycemia,hyperkalemia and symptomatic anemia. Will check blood gas as well as CBC and BMP. Will as patient is sleeping she isput on BiPAP here as well as 3 L of oxygen. She currently is 93 to 94% on 3 L. VBG shows metabolic acidosis with the patient 7.07, bicarb of 14 and pCO2 of 15. EKG is added on as well as chest x-ray. She is given albuterol treatment. EKG shows peaked T waves. Given that she does have end-stage renal disease and type 1 diabetes concern for underlying metabolic acidosis causing her presentation. CBC is stable within normal limits for the patient. Her BMP shows a glucose of 366, and elevated anion gap of 28, creatinine of 3.92 (consistent with end-stagerenal disease) and a potassium of 6.1. Patient ordered hyperkalemic order set as well as acetone level. Chest x-ray shows pulmonary vascular markings, hyperinflation and questionable infiltrate of the right lower lobe. Does not look significantly different from chest x-ray 3 days ago. The patient is in DKA. states that she has not had her insulin pump on since being out of the hospital. Seems that they were missing a piece at home and not able to put it back on. Potassium is elevated at 6.1. EKG did show peaked acuities. As she has end-stage renal disease she is given hyper-K cocktail. She is not given IV fluids because she is end-stage renal disease. She also has elevated anion gap of 28 which is above her baseline significantly. BHB is 8.3. Glucose is 366. This is all consistent with DKA. Patient started on insulin drip. Case is discussedwith hospitalist, Dr. Fontenot. She states the patient was on her insulin pump whilein the hospital so it is not clear why it was taken off. Lab Data Labs: Laboratory Results - last 24 hr 06/02/25 06/02/25 06/02/25 04:45 05:35 05:40 WBC 7.3 RBC 2.95 L Hgb 8.4 L Hct 29.2 L MCV 99.0 D MCH 28.5 MCHC 28.8 L RDW Std Deviation 53.7 H RDW Coeff of Iron 15.4 H Plt Count 237 MPV 9.9 Immature Gran % (Auto) 0.500 Neut % (Auto) 84.7 H Lymph % (Auto) 6.0 L Duval % (Auto) 8.0 Eos % (Auto) 0.7 Baso % (Auto) 0.1 Absolute Neuts (auto) 6.2 Absolute Lymphs (auto) 0.44 L Nucleated RBC % 0.5 Sodium 132 L Potassium 6.1 H* 6.2 H* Chloride 93 L Carbon Dioxide 11.6 L Anion Gap 28 H BUN 59 H Creatinine 3.92 H Estim Creat Clear Calc 10.57 L Est GFR (MDRD) Non-Af 12 L BUN/Creatinine Ratio 14.9 Glucose 366 H Calcium 8.3 b-Hydroxybutyric mmol/L 8.3 H POC Glucose 366 H ABG Data ABG results: ABG 06/02/25 04:55 Specimen Type ROHIT Sample Site Not entered O2 % 40.0 VBG pH 7.07 L* VBG pO2 102 H VBG HCO3 14 L VBG Total CO2 15 L VBG O2 Sat (Calc) 95 H VBG Base Excess -16 L POC Mix VBG pCO2 Pt Tmp 47.5 O2 Delivery Device BiPAP Crit Call To/Read Back Yes Blood Gas Notified Whom [facility] Blood Gas Notified Time 04:56:57 Clinical Comments bipap 14. 6. 40% Radiography Diagnostic Testing: Clinical Impression(s) from Imaging Studies Chest X-Ray 06/02/25 05:25 IMPRESSION: Suspect right lung base pneumonia, no interval change. Reading Location: [place] [address] Rhythm Strip Rhythm Strip: Sinus Rhythm Rate: 55 Ectopy: None EKG Initial EKG: Attestation: I personally reviewed and interpreted this EKG as follows: Interpretation: Sinus Bradycardia Comments: Sinus bradycardia 55 bpm Left axis deviation Minimal bulges criteria for LVH Peaked T waves which are more pronounced in the precordial leads compared to prior EKGs Management Discussion w/another healthcare provider: Hospitalist Critical Care Time Critical Care Time: Yes Critical care time (excluding procedures): 30-74 minutes (45), Discussing w/Patient &/or Family/B2B Account Executive, Arranging Admission or Transfer and PerformingDirect Patient Care at Bedside Discharge Plan Triage Chief Complaint: Shortness of Breath ED Provider: Shivani Mcrae Dx/Rx/DC Orders Clinical Impression: DKA, type 1, DM type 1 (diabetes mellitus, type 1), End-stage renal disease on hemodialysis, Chronic hypoxemic respiratory failure, Acute hyperkalemia Prescriptions: No Action aspirin 81 mg tablet,delayed [...] ONLY WANTS TO TAKE ONCE PER DAY potassium chloride 20 mEq tablet,ER particles/crystals 20 meq PO BID calcitriol 0.5 mcg capsule 0.5 mcg PO DAILY ondansetron 4 mg tablet,disintegrating 4 mg PO Q8H PRN PRN (Reason: Nausea) Qty: 10 0RF pseudoephedrine-guaifenesin [Mucinex D] 60-600 mg tablet extended release 12 hr 1 tab PO BID PRN (Reason: cold symptoms) ipratropium-albuterol 0.5 mg-3 mg(2.5 mg base)/3 mL solution for nebulization 3 ml inhalation Q4H PRN PRN (Reason: SOB &/OR WHEEZING) Qty: 180 6RF Prolia 60 mg/mL syringe 60 mg subcut [id number] Qty: 1 1RF Patient Comments: Next injection [...] 500 mcg PO DAILY Qty: 30 11RF Primary Care Provider: Juliet Lujan Referrals: Juliet Lujan MD [Primary Care Provider] - Print Language: [place] Disposition Disposition: Acute Care Hospital [facility] What to do if you have Problems For any increased pain, shortness of breath, bleeding, nausea or vomiting, chestpain, or any unexpected problems, contact your Primary Care Provider. Call [facility] ([phone]) or report to the closest Emergency Room. Call 911 if necessary. 06/02/25 0723 <Electronically signed by Shivani Mcrae DO> Cosigner Signature (if applicable): CC: Dr. Juliet Lujan MD ~ Signed [facility] Work Phone: Evaluation note* Diagnosis Onset Date Resolution Status CKD (chronic kidney disease) stage 4, GFR 15-29 ml/min chronic Diabetes chronic Essential (primary) hypertension chronic Tobacco abuse [facility] Work Phone: Evaluation note* Diagnosis Onset Date Resolution Status CKD (chronic kidney disease) stage 4, GFR 15-29 ml/min chronic Diabetes chronic Essential (primary) hypertension chronic Tobacco abuse chronic Chronic obstructive pulmonary disease chronic Smoking greater than 30 pack years [facility] Work Phone: evaluation note* Diagnosis Onset Date Resolution Status Chronic obstructive pulmonary disease chronic Respiratory failure with hypoxia chronic Smoking greater than 30 pack years chronic Fissure in skin of foot acut e CKD (chronic kidney disease) stage 4, GFR 15-29 ml/min chronic DM type 1 (diabetes mellitus, type 1) chronic Tobacco abuse [facility] Work Phone: Evaluation note* Diagnosis Onset Date Resolution Status Fissure in skin of foot acut e CKD (chronic kidney disease) stage 4, GFR 15-29 ml/min chronic DM type 1 (diabetes mellitus, type 1) chronic Tobacco abuse chronic Chronic obstructive pulmonary disease chronic Smoking greater than 30 pack years [facility] Work Phone: Evaluation note* Diagnosis Onset Date Resolution Status CKD (chronic kidney disease) stage 4, GFR 15-29 ml/min chronic DM type 1 (diabetes mellitus, type 1) chronic Hyperlipidemia chronic 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 Atherosclerosis of coronary artery of [place] without angina pectoris chronic Chronic obstructive pulmonary disease chronic Cigarette nicotine dependence [facility] Work Phone: Evaluation note* Diagnosis Onset Date Resolution Status Atherosclerosis of coronary artery of [place] without angina pectoris chronic Chronic obstructive pulmonary disease chronic Cigarette nicotine dependence chronic Atherosclerosis of coronary artery of [place] without angina pectoris chronic Essential (primary) hypertension chronic Hyperlipidemia [facility] Work Phone: evaluation note* Diagnosis Onset Date Resolution Status Atherosclerosis of coronary artery of [place] heart without angina pectoris chronic Essential (primary) hypertension chronic Hyperlipidemia [facility] Work Phone: evaluation note* Diagnosis Onset Date Resolution Status Lung nodule, solitary acute Chronic obstructive pulmonary disease chronic Smoking greater than 30 pack years chronic CKD (chronic kidney disease) stage 4, GFR 15-29 ml/min chronic DM type 1 (diabetes mellitus, type 1) [facility] Work Phone: evaluation note* Diagnosis Onset Date Resolution Status CKD (chronic kidney disease) stage 4, GFR 15-29 ml/min chronic DM type 1 (diabetes mellitus, type 1) [facility] Work Phone: evaluation note* Diagnosis Onset Date Resolution Status CKD (chronic kidney disease) stage 4, GFR 15-29 ml/min chronic DM type 1 (diabetes mellitus, type 1) chronic Lung nodule, solitary acute Chronic obstructive pulmonary disease chronic Respiratory failure with hypoxia [facility] Work Phone: evaluation note* Diagnosis Onset Date Resolution Status Lung nodule, solitary acute Chronic obstructive pulmonary disease chronic Respiratory failure with hypoxia chronic Atherosclerosis of coronary artery of [place] without angina pectoris chronic Essential (primary) hypertension chronic Hyperlipidemia [facility] Work Phone: evaluation note* Diagnosis Onset Date Resolution Status Lung nodule, solitary acute Chronic obstructive pulmonary disease chronic Respiratory failure with hypoxia chronic Atherosclerosis of coronary artery of [place] without angina pectoris chronic Essential (primary) hypertension chronic Hyperlipidemia chronic Body mass index (BMI) less than 16.5 chronic CKD (chronic kidney disease) stage 4, GFR 15-29 ml/min chronic DM type 1 (diabetes mellitus, type 1) chronic Nicotine abuse chronic Polyneuropathy due to type 1 diabetes mellitus [facility] Work Phone: evaluation note* Diagnosis Onset Date Resolution Status Lung nodule, solitary acute Chronic obstructive pulmonary disease chronic Respiratory failure with hypoxia chronic Atherosclerosis of coronary artery of [place] without angina pectoris chronic Essential (primary) [...] Nicotine abuse chronic Respiratory failure with hypoxia [facility] Work Phone: Evaluation note* Diagnosis Onset Date Resolution Status Atherosclerosis of coronary artery of [place] without angina pectoris chronic Essential (primary) [...] Nicotine abuse chronic Respiratory failure with hypoxia [facility] Work Phone: Evaluation note* Diagnosis SDH (subdural hematoma) (HCC)- Primary Subdural hemorrhage SDH (subdural hematoma) (HCC) Subdural hemorrhage Stage 4 chronic kidney disease (HCC) COPD (chronic obstructive pulmonary disease) (HCC) Chronic airway obstruction, not elsewhere classified Type 1 diabetes mellitus with kidney complication (HCC) Hyperlipidemia Other and unspecified hyperlipidemia Diabetic neuropathy associated with type 1 diabetes mellitus (HCC) [facility] Diagnosis SDH (subdural hematoma) (HCC) Subdural hemorrhage documented in this encounter [facility] [employer] WebsiteEvaluation note* Diagnosis Hypercapnic respiratory failure (HCC)- Primary Hypercapnic respiratory failure (HCC) Chronic obstructive pulmonary disease, unspecified COPD type (HCC) documented in this encounter [facility] [employer] WebsiteEvaluation note* Diagnosis Chronic respiratory failure with hypoxia and hypercapnia (HCC) [J96.11, J96.12]- Primary Centrilobular emphysema (HCC) [J43.2] Bilateral pleural effusion [J90] Unspecified pleural effusion Hx of bacterial pneumonia [Z87.01] Cigarette nicotine dependence without complication [F17.210] documented in this encounter [facility] [employer] WebsiteEvaluation note* Diagnosis Chronic respiratory failure with hypoxia [...] physical note Author Favian Nicholas [facility] Note Date/Time May 28, 2025 12:[address] [facility] Medical Records Department [address] [place] [address] H&P Exam - Hospitalist 05/28/25 0039 MR#: [id number] Acct: [id number] Name: SANDY DENG Rep #:[id number] : 1960 64 From: Favian Nicholas DO PCP: Dr. Juliet Lujan MD Status :ADM IN Location: [place] [address] HPI - General General Date of Service: [...] received methylprednisoloneand bronchodilators in the emergency room. [facility] Medical History On home oxygen therapy Wears [...] Anxiety Depression Atherosclerosis of coronary artery of [place] without angina pectoris NSTEMI (non-ST elevated [...] denosumab 60 mg/mL subcutaneous 60 mg subcut [id number] bone health 06/10/24 07/09/24 Rx syringe (Prolia) [...] (Auto) 69.6, Lymph % (Auto) 16.0 L, Duval % (Auto) 10.0, Eos % (Auto) 3.4, [...] IMPRESSION: Pulmonary findings as above. Reading Location: [id number] Assessment & Plan Assessment/Plan (1) COPD exacerbation: PLAN: Lungs sound very diminished. Will continue methylprednisolone as well as bronchodilators (2) End stage renal disease: PLAN: On home dialysis. Patient did not complete her dialysis session on the due to pain and concern for infiltration of the venous port. Dr. Fontenot has been contacted by the emergency room [...] at bedside. Charges/Coding Visit Charges Inpatient E&M: 21039 Init Hosp L3 05/28/25 0048 <Electronically signed by Favian Nicholas DO> Cosigner Signature (if applicable): CC: Dr. Juliet Lujan MD; Dr. Favian Nicholas DO~ Signed [facility] Work Phone: History of Present illness [...] with treatment. * Primary Care Provider: Dr. Juliet Lujan. * Referral: Dr. Christy Fontenot (tel: [phone] fax: [phone]). * I am seeing SANDY DENG at the referring provider's request for surgical suitability for renaltransplant candidate listing at [facility]. * History of Present Illness Comments: Ms. [...] Information: * Dr. Viraj No is her Mica Layer. * Insulin use for 22 years * [...] * She was not seen by a Backfiller. * Psych History: * No history * Psychosocial: * Smoking: yes, takes Bupropion. She is cutting back and now smokes 3 cigarettes per day. She has a 50 pack/year history. * Marijuana/Illicits: No * Alcohol: no * Financial: * She is retired. 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 * [...] is vaccinated against COVID-19 but not boosted. [facility] [place] [facility] Work Phone: Hospital Discharge instructionsAdditional [...] as needed for nausea and vomiting.[facility] Work Phone: Hospital Discharge instructionsAdditional Instructions Date of [facility]: [facility]: Reason for referral (narrative)No reason for referral information availableWLancaster [facility] Work Phone: Chief Complaint and Reason [...] diabetes mellitus Atherosclerosis of coronary artery of [place] heart without angina pectoris Chronic obstructive pulmonary disease Cigarette nicotine dependence Chief Complaint 3 M FU CP CP Amb Documentation Amb Documentation OVERDUE FOR OV (2020) COPD COPD Reason for Visit Atherosclerosis of c oronary artery of [place] heart without angina pectoris Chronic obstructive pulmonary disease Cigarette nicotine dependence Atherosclerosis of coronary artery of [place] heart without angina pectoris Essential (primary) hypertension Hyperlipidemia Chief Complaint 3 M FU CP CP Amb Documentation Amb Documentation OVERDUE FOR OV (2020) COPD COPD SMOKER Reason for Visit Atherosclerosis of c oronary artery of [place] heart without angina pectoris Chronic obstructive pulmonary disease Cigarette nicotine dependence Atherosclerosis of coronary artery of [place] heart without angina pectoris Essential (primary) hypertension Hyperlipidemia Chief Complaint CP CP Amb Documentation Amb Documentation OVERDUE FOR OV (2020) COPD COPD SMOKER COPD COPD Reason for Visit Atherosclerosis of c oronary artery of [place] heart without angina pectoris Essential (primary) hypertension Hyperlipidemia Chief Complaint COPD COPD 4 M FU 6 M FU, RS 07/13 LFOR NODULE Reason for Visit Lung nodule, solitar [...] with hypoxia Atherosclerosis of coronary artery of [place] heart without angina pectoris Essential (primary) hypertension Hyperlipidemia Chief Complaint FLANK PAIN, ABD PAIN 3 M FU 6 M FU 3 M FU RENAL,PTH, CBC Reason for Visit Lung nodule, solitar y Chronic obstructive pulmonary disease Respiratory failure with hypoxia Atherosclerosis of coronary artery of [place] heart without angina pectoris Essential (primary) hypertension [...] with hypoxia Atherosclerosis of coronary artery of [place] heart without angina pectoris Essential (primary) hypertension [...] Visit Atherosclerosis of c oronary artery of [place] heart without angina pectoris Essential (primary) hypertension [...] type 1 (diabetes mellitus, type 1) [facility] 2023 1:39pm Hypertension October 07, 2024 1 [...] 2024 2:26pm Atherosclerosis of coronary artery of [place] heart without angina pectoris December 16, 2024 [...] DM type 1 (diabetes mellitus, type 1) [facility] 2024 11:39pm Hypertension January 03, 2025 11:3 9pm Acute hyperkalemia January 03, 2025 11:3 9pm Chronic hypoxemic respiratory failure [facility] 2024 11:39pm AV fistula January 11, [...] 2024 2:26pm Atherosclerosis of coronary artery of [place] heart without angina pectoris December 16, 2024 [...] DM type 1 (diabetes mellitus, type 1) [facility] 2024 11:39pm Hypertension January 03, 2025 11:3 9pm Acute hyperkalemia January 03, 2025 11:3 9pm Chronic hypoxemic respiratory failure [facility] 2024 11:39pm AV fistula January 11, 2025 2:5 5pm DM type 1 (diabetes mellitus, type 1) [facility] 2024 8:40am High cholesterol January 27, [...] Admit Date Atherosclerosis of coronary artery of [place] heart without angina pectoris December 16, 2024 [...] DM type 1 (diabetes mellitus, type 1) [facility] 2024 11:39pm Hypertension January 03, 2025 11:3 9pm Acute hyperkalemia January 03, 2025 11:3 9pm Chronic hypoxemic respiratory failure [facility] 2024 11:39pm AV fistula January 11, 2025 2:5 5pm DM type 1 (diabetes mellitus, type 1) [facility] 2024 8:40am High cholesterol January 27, [...] DM type 1 (diabetes mellitus, type 1) [facility] 2024 8:40am High cholesterol January 27, [...] DM type 1 (diabetes mellitus, type 1) [facility] 2024 8:40am High cholesterol January 27, [...] DM type 1 (diabetes mellitus, type 1) [facility] 2024 8:40am High cholesterol January 27, [...] 18, 2025 8:42am Chronic obstructive pulmonary disease ly 2024 8:42am ESRD on hemodialysis May [...] 12 :21am Atherosclerosis of coronary artery of [place] heart without angina pectoris May 28, 2025 12:21am Chronic obstructive pulmonary disease Ju [facility] 2024 12:21am COPD exacerbation May 28, 2025 12:2 1am DM type 1 (diabetes mellitus, type 1) [facility] 2024 12:21am ESRD (end stage renal disease) on dialys is May 28, 2025 12:21am Essential (primary) hypertension May [id number] 12:21am Hypertension May 28, 2025 12:2 1am Chief Complaint [...] CHF EXACERBATION June 01, 2025 7:55 am CHF EXACERBATION June 01, 2025 6:15 pm DKA June 02, 2025 7:07 am Reason for Visit Admit Date AV [...] 12 :21am Atherosclerosis of coronary artery of [place] heart without angina pectoris May 28, 2025 12:21am Chronic obstructive pulmonary disease Ju [facility] 2024 12:21am COPD exacerbation May 28, 2025 12:2 1am DM type 1 (diabetes mellitus, type 1) [facility] 2024 12:21am ESRD (end stage renal disease) on dialys is May 28, 2025 12:21am Essential (primary) hypertension May [id number] 12:21am Hypertension May 28, 2025 12:2 1am Acute hyperkalemia June 02, 2025 7:07 am DKA, type 1 June 02, 2025 7:07 am End-stage renal disease on hemodialysis June 02, 2025 7:07am Chronic hypoxemic respiratory failure Ju [facility] 2024 7:07am DM type 1 (diabetes mellitus, type 1) [facility] 2024 7:07am Chief Complaint Admit Date 10 WK FU [...] CHF EXACERBATION June 01, 2025 7:55 am CHF EXACERBATION June 01, 2025 6:15 pm DKA June 02, 2025 7:07 am DKA June 02, 2025 7:21 am DKA June 03, 2025 7:1 3am DKA June 04, 2025 9:0 8am Reason for Visit Admit Date AV fistula [...] 12 :21am Atherosclerosis of coronary artery of [place] heart without angina pectoris May 28, 2025 12:21am Chronic obstructive pulmonary disease Ju ly 2024 12:21am COPD exacerbation May 28, 2025 12:2 1am DM type 1 (diabetes mellitus, type 1) Ju ly 2024 12:21am ESRD (end stage renal disease) on dialys is May 28, 2025 12:21am Essential (primary) hypertension May [id number] 12:21am Hypertension May 28, 2025 12:2 1am Acute hyperkalemia June 02, 2025 7:07 am Anemia June 02, 2025 7:07 am DKA, type 1 June 02, 2025 7:07 am End-stage renal disease on hemodialysis June 02, 2025 7:07am Hypercarbia June 02, 2025 7:07 am Severe malnutrition June 02, 2025 7:07 am Toxic metabolic encephalopathy May 7:07am Chronic hypoxemic respiratory failure Ju [facility] 2024 7:07am DM type 1 (diabetes mellitus, type 1) [facility] 2024 7:07am Family History No Family History Records Found [...] Will No August 26 8:15pm Power of Economic Geographer No August 26, 2020 8:15pm Advance Directive Response Recorded Date/ Time Advance Directives No February 04 7:01am Living Will No August 26 7:15pm Power of Economic Geographer No August 26, 2020 7:15pm Date Activated [...] Do you have a Healthcare Power of Economic Geographer? No August 26, 2020 8:15pm Living Will No April 14, 2024 10:45pm Do you have a Healthcare Power of Economic Geographer? No April 14, 2024 10:45pm Advance Directives No January 10 9:10am Living Will No July 24, 2024 12:39am Do you have a Healthcare Power of Economic Geographer? No July 24, 2024 12:39am Living Will No November 20 8:06pm Do you have a Healthcare Power of Economic Geographer? No November 20, 2024 8:06pm Living Will No December 14 2:25pm Do you have a Healthcare Power of Economic Geographer? No December 14, 2024 2:25pm Living Will No January 04, 2025 1:39am Do you have a Healthcare Power of Economic Geographer? No January 04, 2025 1:39am Advance Directive Response Recorded Date/ Time Living Will No April 14, 2024 10:45pm Do you have a Healthcare Power of Economic Geographer? No April 14, 2024 10:45pm Advance Directives No January 10 9:10am Living Will No December 14 2:25pm Do you have a Healthcare Power of Economic Geographer? No December 14, 2024 2:25pm Living Will No January 04, 2025 1:39am Do you have a Healthcare Power of Economic Geographer? No January 04, 2025 1:39am Advance Directive Response Recorded Date/ Time Living Will No April 14, 2024 10:45pm Do you have a Healthcare Power of Economic Geographer? No April 14, 2024 10:45pm Advance Directives No January 10 9:10am Living Will No December 14 2:25pm Do you have a Healthcare Power of Economic Geographer? No December 14, 2024 2:25pm Living Will No January 04, 2025 1:39am Do you have a Healthcare Power of Economic Geographer? No January 04, 2025 1:39am Do you have a Healthcare Power of Economic Geographer? No April 09, 2025 12:26pm Advance Directive Response Recorded Date/ Time Advance Directives No January 10 9:10am Do you have a Healthcare Power of Economic Geographer? No April 09, 2025 12:26pm Do you have a Healthcare Power of Economic Geographer? No May 08, 2025 8:07am Advance Directive Response Recorded Date/ Time Do you have a Healthcare Power of Economic Geographer? No April 09, 2025 12:26pm Do you have a Healthcare Power of Economic Geographer? No May 08, 2025 8:07am Advance Directives No January 10 9:10am Advance Directive Response Recorded Date/ Time Do you have a Healthcare Power of Economic Geographer? No May 20, 2025 9:31pm Do you have a Healthcare Power of Economic Geographer? No April 09, 2025 12:26pm Do you have a Healthcare Power of Economic Geographer? No May 08, 2025 8:07am Advance Directives No January 10 9:10am Advance Directive Response Recorded Date/ Time Do you have a Healthcare Power of Economic Geographer? No May 20, 2025 9:31pm Do you have a Healthcare Power of Economic Geographer? No May 27, 2025 7:11pm Do you have a Healthcare Power of Economic Geographer? No April 09, 2025 12:26pm Do you have a Healthcare Power of Economic Geographer? No May 08, 2025 8:07am Advance Directives No January 10 9:10am Advance Directive Response Recorded Date/ Time Do you have a Healthcare Power of Economic Geographer? No May 20, 2025 9:31pm Do you have a Healthcare Power of Economic Geographer? No May 28, 2025 1:20am Do you have a Healthcare Power of Economic Geographer? No April 09, 2025 12:26pm Do you have a Healthcare Power of Economic Geographer? No May 08, 2025 8:07am Advance Directives No January 10 9:10am Advance Directive Response Recorded Date/ Time Do you have a Healthcare Power of Economic Geographer? No May 20, 2025 9:31pm Do you have a Healthcare Power of Economic Geographer? No May 28, 2025 1:20am Do you have a Healthcare Power of Economic Geographer? No April 09, 2025 12:26pm Do you have a Healthcare Power of Economic Geographer? No May 08, 2025 8:07am Do you have a Healthcare Power of Economic Geographer? No June 02, 2025 4:29am Advance Directives No January 10 9:10am Advance Directive Response Recorded Date/ Time Do you have a Healthcare Power of Economic Geographer? No May 20, 2025 9:31pm Do you have a Healthcare Power of Economic Geographer? No May 28, 2025 1:20am Do you have a Healthcare Power of Economic Geographer? No April 09, 2025 12:26pm Do you have a Healthcare Power of Economic Geographer? No May 08, 2025 8:07am Do you have a Healthcare Power of Economic Geographer? No June 02, 2025 8:08am Advance Directives No January 10 9:10am Summary Purpose Reason for Referral Specialty Diagnoses / Procedures Referred By Cinthia t Referred To Contact Radiology Diagnoses SDH (subdural hematoma) (HCC) Procedures CT head wo IV contrast Madeline Montalvo, [employer] - [employer] ENGINEER [address] [place] [address] Referral ID Status Reason Start Date Expiration Date V isits Requested Visits Authorized [id number] Authorized 07/27/2024 07/27/2025 1 1 Specialty Diagnoses / Procedures Referred By Contac t Referred To Contact Radiology Diagnoses SDH (subdural hematoma) (HCC) Procedures CT head wo IV contrast Elieser Solis MD [address] [place] [address] Referral ID Status Reason Start Date Expiration Date Visits Re quested Visits Authorized [id number] Closed 07/27/2024 09/10/2024 1 1 Additional Source [...] section and content) DATE CREATED AUTHOR 06/02/2022 [employer] DATE CREATED AUTHOR AUTHOR'S ORGANIZ ATION 06/03/2022 [facility] DATE CREATED AUTHOR AUTHOR'S ORGANIZ ATION 12/18/2024 [facility] DATE CREATED AUTHOR AUTHOR'S ORGANIZ ATION 12/31/2024 [facility] DATE CREATED AUTHOR AUTHOR'S ORGANIZ ATION 07/09/2025 [facility] Care Teams (unrecognized sec tion and [...] Provider, Refe rring Provider Active Jeanna Davis DAIRY NUTRITION SPECIALIST, DAIRY NUTRITION SPECIALIST-C Attending Provider Active Team Status: Active Member [...] Primary Care Provider Activ e Dr. Christy Fontenot DO Attending Provider, Referring P rovider Active [...] Active Member Role Status Dates Jeanna Davis DAIRY NUTRITION SPECIALIST, DAIRY NUTRITION SPECIALIST-C Referring Provider, Other Pr ovider Active Dr. Sin Lujan MD Primary Care Provider Activ e Dr. Rios Cordova MD Attending Provider Active Team Status: Inactive Member Role Status Dates Jeanna Davsi DAIRY NUTRITION SPECIALIST, DAIRY NUTRITION SPECIALIST-C Attending Provider, Referrin g Provider Active Dr. Sin Lujan MD Primary Care Provider Activ e Team Status: Inactive Member Role Status Dates Dr. Sin Lujan MD Primary Care Provider Activ e Dr. Christy Fontenot DO Attending Provider Active Team Status: Active Member Role Status Dates Jeanna Davis DAIRY NUTRITION SPECIALIST, DAIRY NUTRITION SPECIALIST-C Referring Provider, Other Pr ovider Active Dr. [...] Primary Care Provider Activ e Dr. Christy Fontenot DO Attending Provider Active Team Status: Inactive Member Role Status Dates Dr. Sin Lujan MD Primary Care Provider Activ e Jeanna Davis DAIRY NUTRITION SPECIALIST, DAIRY NUTRITION SPECIALIST-C Attending Provider Active Team Status: Inactive Member Role Status Dates Dr. Sin Lujan MD Primary Care Provider, Refe rring Provider Active Kena Sandy NP, DAIRY NUTRITION SPECIALIST-C Attending Provider Active Team Status: Inactive Member Role Status Dates Dr. Sin Lujan MD Primary Care Provider Activ e Jeanna Davis DAIRY NUTRITION SPECIALIST, DAIRY NUTRITION SPECIALIST-C Attending Provider, Referrin g Provider Active Team Status: Active Member Role Status Dates Dr. Juliet Lujan MD Family Provider Active Dr. Juliet Lujan MD Primary Care Provider Acti ve Team Status: Inactive Member Role Status Dates Dr. Juliet Lujan MD Primary Care Provider, Ref erring Provider Active Kena Sandy DAIRY NUTRITION SPECIALIST, DAIRY NUTRITION SPECIALIST-C Attending Provider Active Team Status: Inactive Member Role Status Dates Dr. Juliet Lujan MD Primary Care Provider, Ref erring Provider Active Brenda Medrano NP-C Attending Provider Active Team Status: Inactive Member Role Status Dates Dr. Juliet Lujan MD Primary Care Provider, Ref erring Provider Active Jeanna Davis DAIRY NUTRITION SPECIALIST, DAIRY NUTRITION SPECIALIST-C Attending Provider Active Team Status: Inactive Member Role Status Dates Dr. Juliet Lujan MD Primary Care Provider Acti ve Dr. Christy Fontenot DO Attending Provider Active Team Status: Inactive Member Role Status Dates Dr. Juliet Lujan MD Primary Care Provider Acti ve Jeanna Davis DAIRY NUTRITION SPECIALIST, DAIRY NUTRITION SPECIALIST-C Attending Provider, Referrin g Provider Active Team Status: Inactive Member Role Status Dates Dr. Juliet Lujan MD Primary Care Provider Acti ve Dr. Sherice Skelton DPM Attending Provider, Referring Pr ovider Active Youth Teacher Relationship Specialty Start Date End Date Juliet Lujan [address] [place] [address] PCP - General Family Medicine 07/26/24 Youth Teacher Relationship Specialty Start Date End Date Juliet Lujan [address] [place] [address] PCP - General Family Medicine 07/26/24 Param Sousa, RN Registered Nurse Paid Search Marketing Strategist Manager 08/11/24 Youth Teacher Relationship Specialty Start Date End Date Juliet Lujan [address] [place] [address] PCP - General Family Medicine 07/26/24 Param Sousa, RN Registered Nurse Paid Search Marketing Strategist Manager 08/11/2409/26 Youth Teacher Relationship Specialty Start Date End Date Juliet Luajn [address] [place] [address] PCP - General Family Medicine 07/26/24 Youth Teacher Relationship Specialty Start Date End Date Juliet Lujan [address] [place] [address] PCP - General Family Medicine 07/26/24 Youth Teacher Relationship Specialty Start Date End Date Juliet Lujan [address] [place] [address] PCP - General Family Medicine 07/26/24 Param Sousa, RN Registered Nurse Paid Search Marketing Strategist Manager 08/11/2409/26 Youth Teacher Relationship Specialty Start Date End Date Juliet Lujan MD [address] [place] [address] PCP - General 10/17/08 Team Status: Active Member Role Status Dates Dr. Juliet Lujan MD Primary Care Provider Acti ve Team Status: Inactive Member Role Status Dates Dr. Juliet Lujan MD Primary Care Provider Acti ve Start: October 07, 2024 End: October 07, 2024 Dr. Juliet Lujan MD Referring Provider Active Start: October 07, 2024 End: October 07, 2024 Brenda Medrano NP-C Attending Provider Active Start: October 07, 2024 End: October 07, 2024 Team Status: Inactive Member Role Status Dates Dr. Juliet Lujan MD Primary Care Provider Acti ve Start: October 16, 2024 End: October 16, 2024 Jeanna Davis NP, DAIRY NUTRITION SPECIALIST-C Attending Provider Active Start: October 16, 2024 End: October 16, 2024 Jeanna Davis NP DAIRY NUTRITION SPECIALIST-C Referring Provider Active Start: October 16, 2024 End: October 16, 2024 Team Status: Inactive Member Role Status Dates Dr. Juliet Lujan MD Primary Care Provider Acti ve Start: November 02, 2024 End: November 02, 2024 Dr. Christy Fontenot DO Attending Provider Active Start: November 02, 2024 End: November 02, 2024 Dr. Christy Fontenot DO Referring Provider Active Start: November 02, 2024 End: November 02, 2024 Team Status: Active Member Role Status Dates Dr. Juliet Lujan MD Primary Care Provider Acti ve Start: November 02, 2024 Dr. Favian Sinclair MD Attending Provider Active S tart: November 02, 2024 Team Status: Inactive Member Role Status Dates Dr. Juliet Lujan MD Primary Care Provider Acti ve Start: November 04, 2024 End: November 04, 2024 Dr. Juliet Lujan MD Referring Provider Active Start: November 04, 2024 End: November 04, 2024 Jeanna Davis NP DAIRY NUTRITION SPECIALIST-C Attending Provider Active Start: November 04, 2024 End: November 04, 2024 Team Status: Inactive Member Role Status Dates Dr. Juliet Lujan MD Primary Care Provider Acti ve Start: November 04, 2024 End: November 04, 2024 Ed Physician Provider Attending Provider Active Start: November 04, 2024 End: November 04, 2024 Ed Physician Provider Emergency Provider Active Start: November 04, 2024 End: November 04, 2024 Team Status: Inactive Member Role Status Dates Dr. Juliet Lujan MD Primary Care Provider Acti ve [...] 2024 End: December 02, 2024 Dr. Christy Fontenot DO Referring Provider Active Start: December 02, 2024 End: December 02, 2024 Team Status: Inactive Member Role Status Dates Dr. Juliet Lujan MD Primary Care Provider Acti ve Start: December 16, 2024 End: December 16, 2024 Dr. Juliet Lujan MD Referring Provider Active Start: December 16, 2024 End: December 16, 2024 Mynor Anthony NP, DAIRY NUTRITION SPECIALIST-C Attending Provider Active S tart: December 16, 2024 End: December 16, 2024 Team Status: Inactive Member Role Status Dates BENTON Bucio Attending Provider Active Star t: December 17, 2024 End: December 17, 2024 BENTON Bucio Referring Provider Active Star t: December 17, 2024 End: December 17, 2024 Dr. Juliet Lujan MD Primary Care Provider Acti ve Start: December 17, 2024 End: December 17, 2024 Team Status: Active Member Role Status Dates Dr. Juliet Lujan MD Primary Care Provider Acti ve Start: December 17, 2024 Dr. Tee Aguirre MD Attending Provider Activ e Start: December 17, 2024 Team Status: Inactive Member Role Status Dates Dr. Favian Sinclair MD Attending Provider Active S tart: December 28, 2024 End: December 28, 2024 Dr. Favian Sinclair MD Referring Provider Active S tart: December 28, 2024 End: December 28, 2024 Dr. Juliet Lujan MD Primary Care Provider Acti ve Start: December 28, 2024 End: December 28, 2024 Team Status: Active Member Role Status Dates Dr. Favian Sinclair MD Attending Provider Active S tart: December 28, 2024 Dr. Favian Sinclair MD Referring Provider Active S tart: December 28, 2024 Dr. Favian Sinclair MD Other Provider Active Start : December 28, 2024 Dr. Juliet Lujan MD Primary Care Provider Acti ve Start: December 28, 2024 Team Status: Active Member Role Status Dates Dr. Juliet Lujan MD Primary Care Provider Acti ve Start: January 03, 2025 Dr. Milind Heath MD Emergency Provider Active Sta rt: January 03, 2025 Dr. Alex Hinojosa MD Attending Provider Active Start: January 03, 2025 Team Status: Inactive Member Role Status Dates Dr. Juliet Lujan MD Primary Care Provider Acti ve [...] 2025 End: January 06, 2025 Dr. Christy Fontenot DO Other Provider Active Sta rt: January 03, 2025 End: January 06, 2025 Dr. He Cat MD Attending Provider Active Start: January 03, 2025 End: January 06, 2025 Team Status: Active Member Role Status Dates Dr. Juliet Lujan MD Primary Care Provider Acti ve Start: January 04, 2025 Dr. Milind Heath MD Emergency Provider Active Sta rt: January 04, 2025 Dr. Alex Hinojosa MD Admit Provider Active Star t: January 04, 2025 Dr. Alex Hinojosa MD Other Provider Active Star t: January 04, 2025 Dr. Christy Fontenot DO Other Provider Active Sta rt: January [...] t: January 04, 2025 Dr. Ezio Frias DO Other Provider Active St art: January [...] Status: Active Member Role Status Dates Dr. Juliet Lujan MD Primary Care Provider Acti ve Start: January 05, 2025 Dr. Milind Heath MD Emergency Provider Active Sta rt: January 05, 2025 Dr. Alex Hinojosa MD Admit Provider Active Star t: January 05, 2025 Dr. Alex Hinojosa MD Other Provider Active Star t: January 05, 2025 Dr. Christy Fontenot DO Other Provider Active Sta rt: January 05, 2025 Dr. He Cat MD Referring Provider Active Start: January 05, 2025 Dr. He Cat MD Other Provider Active Sta rt: January 05, 2025 Dr. Terrance Alva DO Attending Provider Active S tart: January 05, 2025 Team Status: Active Member Role Status Dates Dr. Juliet Lujan MD Primary Care Provider Acti ve Start: January 05, 2025 Dr. Milind Heath MD Emergency Provider Active Sta rt: January 05, 2025 Dr. Alex Hinojosa MD Admit Provider Active Star t: January 05, 2025 Dr. Alex Hinojosa MD Other Provider Active Star t: January 05, 2025 Dr. Christy Fontenot DO Other Provider Active Sta rt: January 05, 2025 Dr. He Cat MD Attending Provider Active Start: January 05, 2025 Dr. He Cat MD Other Provider Active Sta rt: January 05, 2025 Team Status: Active Member Role Status Dates Dr. Juliet Lujan MD Primary Care Provider Acti ve Start: January 06, 2025 Dr. Milind Heath MD Emergency Provider Active Sta rt: January 06, 2025 Dr. Alex Hinojosa MD Admit Provider Active Star t: January 06, 2025 Dr. Alex Hinojosa MD Other Provider Active Star t: January 06, 2025 Dr. Christy Fontenot DO Other Provider Active Sta rt: January 06, 2025 Dr. He Cat MD Attending Provider Active Start: January 06, 2025 Dr. He Cat MD Other Provider Active Sta rt: January 06, 2025 Team Status: Inactive Member Role Status Dates Dr. Juliet Lujan MD Primary Care Provider Acti ve Start: January 11, 2025 End: January 11, 2025 Jeanna Davis DAIRY NUTRITION SPECIALIST, DAIRY NUTRITION SPECIALIST-C Attending Provider Active Start: January 11, 2025 End: January 11, 2025 Jeanna Davis DAIRY NUTRITION SPECIALIST, DAIRY NUTRITION SPECIALIST-C Referring Provider Active Start: January 11, 2025 End: January 11, 2025 Team Status: Inactive Member Role Status Dates Dr. Juliet Lujan MD Primary Care Provider Acti ve Start: January 11, 2025 End: January 11, 2025 Dr. Juliet Lujan MD Referring Provider Active Start: January 11, 2025 End: January 11, 2025 BENTON Bucio Attending Provider Active Star t: January 11, 2025 End: January 11, 2025 Team Status: Inactive Member Role Status Dates Dr. Juliet Lujan MD Primary Care Provider Acti ve Start: January 27, 2025 End: January 27, 2025 Dr. Juliet Lujan MD Referring Provider Active Start: January 27, 2025 End: January 27, 2025 ELLIE Meza Attending Provider Active Start: January 27, 2025 End: January 27, 2025 Team Status: Inactive Member Role Status Dates Dr. Juliet Lujan MD Primary Care Provider Acti ve Start: March 22, 2025 End: March 22, 2025 Dr. Juliet Lujan MD Referring Provider Active Start: March 22, 2025 End: March 22, 2025 BENTON Bucio Attending Provider Active Star t: March 22, 2025 End: March 22, 2025 Team Status: Active Member Role Status Dates Dr. Juliet Lujan MD Primary Care Provider Acti ve Start: April 09, 2025 Dr. Christy Fontento DO Attending Provider Active Start: April 09, 2025 Dr. Christy Fontenot DO Referring Provider Active Start: April 09, 2025 Team Status: Inactive Member Role Status Dates Dr. Juliet Lujan MD Primary Care Provider Acti ve Start: April 09, 2025 End: April 09, 2025 Dr. Milind Heath MD Emergency Provider Active Sta rt: April 09, 2025 End: April 09, 2025 Team Status: Inactive Member Role Status Dates Dr. Juliet Lujan MD Primary Care Provider Acti ve Start: April 09, 2025 End: April 09, 2025 Dr. Christy Fontenot DO Attending Provider Active Start: April 09, 2025 End: April 09, 2025 Dr. Christy Fontenot DO Referring Provider Active Start: April 09, 2025 End: April 09, 2025 Team Status: Active Member Role Status Dates Dr. Juliet Lujan MD Primary Care Provider Acti ve Start: April 11, 2025 Dr. Christy Fontenot DO Attending Provider Active Start: April 11, 2025 Dr. Christy Fontenot DO Referring Provider Active Start: April 11, 2025 Team Status: Inactive Member Role Status Dates Dr. Juliet Lujan MD Primary Care Provider Acti ve Start: April 11, 2025 End: April 11, 2025 Dr. Christy Fontenot DO Attending Provider Active Start: April 11, 2025 End: April 11, 2025 Dr. Christy Fontenot DO Referring Provider Active Start: April 11, 2025 End: April 11, 2025 Team Status: Active Member Role/Relationship Status Dates Dr. Juliet Lujan MD Primary Care Provider Acti ve Team Status: Inactive Member Role/Relationship Status Dates Dr. Juliet Lujan MD Primary Care Provider Acti ve Start: January 11, 2025 End: January 11, 2025 Jeanna Davis NP, DAIRY NUTRITION SPECIALIST-C Attending Provider Active Start: January 11, 2025 End: January 11, 2025 Jeanna Davis NP DAIRY NUTRITION SPECIALIST-C Referring Provider Active Start: January 11, 2025 End: January 11, 2025 Team Status: Inactive Member Role/Relationship Status Dates Dr. Juliet Lujan MD Primary Care Provider Acti ve Start: January 11, 2025 End: January 11, 2025 Dr. Juliet Lujan MD Referring Provider Active Start: January 11, 2025 End: January 11, 2025 BENTON Bucio Attending Provider Active Star t: January 11, 2025 End: January 11, 2025 Team Status: Inactive Member Role/Relationship Status Dates Dr. Juliet Lujan MD Primary Care Provider Acti ve Start: January 27, 2025 End: January 27, 2025 Dr. Juliet Lujan MD Referring Provider Active Start: January 27, 2025 End: January 27, 2025 MITCH MezaC Attending Provider Active Start: January 27, 2025 End: January 27, 2025 Team Status: Inactive Member Role/Relationship Status Dates Dr. Juliet Lujan MD Primary Care Provider Acti ve Start: March 22, 2025 End: March 22, 2025 Dr. Juliet Lujan MD Referring Provider Active Start: March 22, 2025 End: March 22, 2025 BENTON Bucio Attending Provider Active Star t: March 22, 2025 End: March 22, 2025 Team Status: Inactive Member Role/Relationship Status Dates Dr. Juliet Lujan MD Primary Care Provider Acti ve Start: April 09, 2025 End: April 09, 2025 Dr. Christy Fontenot DO Attending Provider Active Start: April 09, 2025 End: April 09, 2025 Dr. Christy Fontenot DO Referring Provider Active Start: April 09, 2025 End: April 09, 2025 Team Status: Inactive Member Role/Relationship Status Dates Dr. Juliet Lujan MD Primary Care Provider Acti ve Start: April 09, 2025 End: April 09, 2025 Dr. Milind Heath MD Attending Provider Active Sta rt: April 09, 2025 End: April 09, 2025 Dr. Milind Heath MD Emergency Provider Active Sta rt: April 09, 2025 End: April 09, 2025 Team Status: Inactive Member Role/Relationship Status Dates Dr. Juliet Lujan MD Primary Care Provider Acti ve Start: April 11, 2025 End: April 11, 2025 Dr. Christy Fontenot DO Attending Provider Active Start: April 11, 2025 End: April 11, 2025 Dr. Christy Fontenot DO Referring Provider Active Start: April 11, 2025 End: April 11, 2025 Team Status: Inactive Member Role/Relationship Status Dates Dr. Juliet Lujan MD Primary Care Provider Acti ve Start: May 08, 2025 End: May 08, 2025 Dr. Justin Parisi DO Emergency Provider Activ e Start: May 08, 2025 End: May 08, 2025 Team Status: Inactive Member Role/Relationship Status Dates Dr. Juliet Lujan MD Primary Care Provider Acti ve Start: January 27, 2025 End: January 27, 2025 Dr. Juliet Lujan MD Referring Provider Active Start: January 27, 2025 End: January 27, 2025 ELLIE Meza Attending Provider Active Start: January 27, 2025 End: January 27, 2025 Team Status: Inactive Member Role/Relationship Status Dates Dr. Juliet Lujan MD Primary Care Provider Acti ve Start: March 22, 2025 End: March 22, 2025 Dr. Juliet Lujan MD Referring Provider Active Start: March 22, 2025 End: March 22, 2025 BENTON Bucio Attending Provider Active Star t: March 22, 2025 End: March 22, 2025 Team Status: Inactive Member Role/Relationship Status Dates Dr. Juliet Lujan MD Primary Care Provider Acti ve Start: April 09, 2025 End: April 09, 2025 Dr. Christy Fontenot DO Attending Provider Active Start: April 09, 2025 End: April 09, 2025 Dr. Christy Fontenot DO Referring Provider Active Start: April 09, 2025 End: April 09, 2025 Team Status: Inactive Member Role/Relationship Status Dates Dr. Juliet Lujan MD Primary Care Provider Acti ve Start: April 09, 2025 End: April 09, 2025 Dr. Milind Heath MD Attending Provider Active Sta rt: April 09, 2025 End: April 09, 2025 Dr. Milind Heath MD Emergency Provider Active Sta rt: April 09, 2025 End: April 09, 2025 Team Status: Inactive Member Role/Relationship Status Dates Dr. Juliet Lujan MD Primary Care Provider Acti ve Start: April 11, 2025 End: April 11, 2025 Dr. Christy Fontenot DO Attending Provider Active Start: April 11, 2025 End: April 11, 2025 Dr. Christy Fontenot DO Referring Provider Active Start: April 11, 2025 End: April 11, 2025 Team Status: Inactive Member Role/Relationship Status Dates Dr. Juliet Lujan MD Primary Care Provider Acti ve Start: May 08, 2025 End: May 08, 2025 Dr. Justin Parisi DO Attending Provider Activ e Start: May 08, 2025 End: May 08, 2025 Dr. Justin Parisi DO Emergency Provider Activ e Start: May 08, 2025 End: May 08, 2025 Team Status: Inactive Member Role/Relationship Status Dates Dr. Juliet Lujan MD Primary Care Provider Acti ve Start: May 18, 2025 End: May 18, 2025 Dr. Juliet Lujan MD Referring Provider Active Start: May 18, 2025 End: May 18, 2025 ELLIE Mckeon Attending Provider Active Start: May 18, 2025 End: May 18, 2025 Team Status: Inactive Member Role/Relationship Status Dates Dr. Juliet Lujan MD Primary Care Provider Acti ve Start: May 20, 2025 End: May 20, 2025 Dr. Alonzo Edwards DO Emergency Provider Active S tart: May 20, 2025 End: May 20, 2025 Team Status: Inactive Member Role/Relationship Status Dates Dr. Juliet Lujan MD Primary Care Provider Acti ve Start: March 22, 2025 End: March 22, 2025 Dr. Juliet Lujan MD Referring Provider Active Start: March 22, 2025 End: March 22, 2025 BENTON Bucio Attending Provider Active Star t: March 22, 2025 End: March 22, 2025 Team Status: Inactive Member Role/Relationship Status Dates Dr. Juliet Lujan MD Primary Care Provider Acti ve Start: April 09, 2025 End: April 09, 2025 Dr. Christy Fontenot DO Attending Provider Active Start: April 09, 2025 End: April 09, 2025 Dr. Christy Fontenot DO Referring Provider Active Start: April 09, 2025 End: April 09, 2025 Team Status: Inactive Member Role/Relationship Status Dates Dr. Juliet Lujan MD Primary Care Provider Acti ve Start: April 09, 2025 End: April 09, 2025 Dr. Milind Heath MD Attending Provider Active Sta rt: April 09, 2025 End: April 09, 2025 Dr. Milind Heath MD Emergency Provider Active Sta rt: April 09, 2025 End: April 09, 2025 Team Status: Inactive Member Role/Relationship Status Dates Dr. Juliet Lujan MD Primary Care Provider Acti ve Start: April 11, 2025 End: April 11, 2025 Dr. Christy Fontenot DO Attending Provider Active Start: April 11, 2025 End: April 11, 2025 Dr. Christy oFntenot DO Referring Provider Active Start: April 11, 2025 End: April 11, 2025 Team Status: Inactive Member Role/Relationship Status Dates Dr. Juliet Lujan MD Primary Care Provider Acti ve Start: May 08, 2025 End: May 08, 2025 Dr. Justin Parisi DO Attending Provider Activ e Start: May 08, 2025 End: May 08, 2025 Dr. Justin Parisi , DO Emergency Provider Activ e Start: May 08, 2025 End: May 08, 2025 Team Status: Inactive Member Role/Relationship Status Dates Dr. Juliet Lujan MD Primary Care Provider Acti ve Start: May 18, 2025 End: May 18, 2025 Dr. Juliet Lujan MD Referring Provider Active Start: May 18, 2025 End: May 18, 2025 MITCH MckeonC Attending Provider Active Start: May 18, 2025 End: May 18, 2025 Team Status: Inactive Member Role/Relationship Status Dates Dr. Juliet Lujan MD Primary Care Provider Acti ve Start: May 20, 2025 End: May 20, 2025 Dr. Alonoz Edwards DO Attending Provider Active S tart: May 20, 2025 End: May 20, 2025 Dr. Alonzo Edwards DO Emergency Provider Active S tart: May 20, 2025 End: May 20, 2025 Team Status: Active Member Role/Relationship Status Dates Dr. Juliet Lujan MD Primary Care Provider Acti ve Start: May 28, 2025 Dr. Bentley Salazar MD Emergency Provider Active Start: May 28, 2025 Dr. Favian Nicholas DO Admit Provider Active Star t: May 28, 2025 Dr. Favian Nicholas DO Attending Provider Active Start: May 28, 2025 Team Status: Active Member Role/Relationship Status Dates Dr. Juliet Lujan MD Primary Care Provider Acti ve [...] Status: Inactive Member Role/Relationship Status Dates Dr. Juliet Lujan MD Primary Care Provider Acti ve Start: May 28, 2025 End: June 01, 2025 Dr. Bentley Salazar MD Emergency Provider Active Start: May 28, 2025 End: June 01, 2025 Dr. Favian Nicholas , DO Admit Provider Active Star t: May 28, 2025 End: June 01, 2025 Dr. Favian Nicholas , DO Other Provider Active Star t: May 28, 2025 End: June 01, 2025 Dr. Christy Fontenot , DO Other Provider Active Sta rt: May 28, 2025 End: June 01, 2025 Dr. Brielle Turner MD Other Provider Active S tart: May 28, 2025 End: June 01, 2025 Dr. Favian Sinclair MD Other Provider Active Start : May 28, 2025 End: June 01, 2025 Dr. Stacy Fontenot , DO Attending Provider Active S tart: May 28, 2025 End: June 01, 2025 Dr. Khai Bullard , DO Other Provider Active S tart: May 28, 2025 End: June 01, 2025 Team Status: Active Member Role/Relationship Status Dates Dr. Juliet Lujan MD Primary Care Provider Acti ve Start: May 28, 2025 Dr. Bentley Salazar MD Emergency Provider Active Start: May 28, 2025 Dr. Favian Nicholas DO Admit Provider Active Star t: May 28, 2025 Dr. Favian Nicholas DO Other Provider Active Star t: May 28, 2025 Dr. Christy Fontenot , DO Other Provider Active Sta rt: [...] Status: Active Member Role/Relationship Status Dates Dr. Juliet Lujan MD Primary Care Provider Acti ve Start: May 29, 2025 Dr. Bentley Salazar MD Emergency Provider Active Start: May 29, 2025 Dr. Favian Nicholas DO Admit Provider Active Star t: May 29, 2025 Dr. Favian Nicholas , DO Other Provider Active Star t: May 29, 2025 Dr. Christy Fontenot , DO Other Provider Active Sta rt: May 29, 2025 Dr. Khai Bullard , DO Other Provider Active S tart: May 29, 2025 Dr. Brielle Turner MD Attending Provider Active Start: May 29, 2025 Dr. Brielle Turner MD Other Provider Active S tart: May 29, 2025 Dr. Favian Sinclair MD Other Provider Active Start : May 29, 2025 Team Status: Active Member Role/Relationship Status Dates Dr. Juliet Lujan MD Primary Care Provider Acti ve Start: May 29, 2025 Dr. Bentley Salazar MD Emergency Provider Active Start: May 29, 2025 Dr. Favian Nicholas , DO Admit Provider Active Star t: May 29, 2025 Dr. Favian Nicholas , DO Other Provider Active Star t: May 29, 2025 Dr. Christy Fontenot , DO Other Provider Active Sta rt: [...] Status: Active Member Role/Relationship Status Dates Dr. Juliet Lujan MD Primary Care Provider Acti ve Start: May 30, 2025 Dr. Bentley Salazar MD Emergency Provider Active Start: May 30, 2025 Dr. Favian Nicholas , DO Admit Provider Active Star t: May 30, 2025 Dr. Favian Nicholas , DO Other Provider Active Star t: May 30, 2025 Dr. Christy Fontenot , DO Other Provider Active Sta rt: May 30, 2025 Dr. Brielle Turner MD Other Provider Active S tart: May 30, 2025 Dr. Favian Sinclair MD Other Provider Active Start : May 30, 2025 Dr. Stacy Fontenot , DO Other Provider Active Start : May 30, 2025 Dr. Khai Bullard , DO Other Provider Active S tart: May 30, 2025 Ana Rosa BHARDWAJ PA-C Attending Provider Active Start: May 30, 2025 Team Status: Active Member Role/Relationship Status Dates Dr. Juliet Lujan MD Primary Care Provider Acti ve Start: May 30, 2025 Dr. Bentley Salazar MD Emergency Provider Active Start: May 30, 2025 Dr. Favian Nicholas , DO Admit Provider Active Star t: May 30, 2025 Dr. Favian Nicholas , DO Other Provider Active Star t: May 30, 2025 Dr. Christy Fontenot , DO Other Provider Active Sta rt: May 30, 2025 Dr. Brielle Turner MD Other Provider Active S tart: May 30, 2025 Dr. Favian Sinclair MD Other Provider Active Start : May 30, 2025 Dr. Stacy Fontenot , DO Attending Provider Active S tart: May 30, 2025 Dr. Stacy Fontenot , DO Other Provider Active Start : May 30, 2025 Dr. Khai Bullard , DO Other Provider Active S tart: May 30, 2025 Team Status: Active Member Role/Relationship Status Dates Dr. Juliet Lujan MD Primary Care Provider Acti ve Start: May 30, 2025 Dr. Bentley Salazar MD Emergency Provider Active Start: May 30, 2025 Dr. Favian Nicholas , Admit Provider Active Star t: May 30, 2025 Dr. Favian Nicholas , DO Other Provider Active Star t: May 30, 2025 Dr. Christy Fontenot , DO Other Provider Active Sta rt: May 30, 2025 Dr. Brielle Turner MD Other Provider Active S tart: May 30, 2025 Dr. Favian Sinclair MD Attending Provider Active S tart: May 30, 2025 Dr. Favian Sinclair MD Other Provider Active Start : May 30, 2025 Dr. Stacy Fontenot , DO Other Provider Active Start : May 30, 2025 Dr. Khai Bullard , DO Other Provider Active S tart: May 30, 2025 Team Status: Active Member Role/Relationship Status Dates Dr. Juliet Lujan MD Primary Care Provider Acti ve Start: May 31, 2025 Dr. Bentley Salazar MD Emergency Provider Active Start: May 31, 2025 Dr. Favian Nicholas , DO Admit Provider Active Star t: May 31, 2025 Dr. Favian Nicholas , DO Other Provider Active Star t: May 31, 2025 Dr. Christy Fontenot , DO Other Provider Active Sta rt: May 31, 2025 Dr. Brielle Turner MD Other Provider Active S tart: May 31, 2025 Dr. Favian Sinclair MD Other Provider Active Start : May 31, 2025 Dr. Stacy Fontenot , DO Attending Provider Active S tart: May 31, 2025 Dr. Stacy Fontenot , DO Other Provider Active Start : May 31, 2025 Dr. Khai Bullard , DO Other Provider Active S tart: May 31, 2025 Team Status: Active Member Role/Relationship Status Dates Dr. Juliet Lujan MD Primary Care Provider Acti ve Start: May 31, 2025 Dr. Bentley Salazar MD Emergency Provider Active Start: May 31, 2025 Dr. Favian Nicholas DO Admit Provider Active Star t: May 31, 2025 Dr. Favian Nicholas , DO Other Provider Active Star t: May 31, 2025 Dr. Christy Fontenot , DO Other Provider Active Sta rt: May 31, 2025 Dr. Brielle Turner MD Other Provider Active S tart: May 31, 2025 Dr. Favian Sinclair MD Attending Provider Active S tart: May 31, 2025 Dr. Favian Sinclair MD Other Provider Active Start : May 31, 2025 Dr. Stacy Fontenot , DO Other Provider Active Start : May 31, 2025 Dr. Khai Bullard , DO Other Provider Active S tart: May 31, 2025 Team Status: Active Member Role/Relationship Status Dates Dr. Juliet Lujan MD Primary Care Provider Acti ve Start: June 01, 2025 Dr. Bentley Salazar MD Emergency Provider Active Start: June 01, 2025 Dr. Favian Nicholas DO Admit Provider Active Star t: June 01, 2025 Dr. Favian Nicholas , DO Other Provider Active Star t: June 01, 2025 Dr. Christy Fontenot , DO Other Provider Active Sta rt: June 01, 2025 Dr. Brielle Turner MD Other Provider Active S tart: June 01, 2025 Dr. Favian Sinclair MD Other Provider Active Start : June 01, 2025 Dr. Stacy Fontenot , DO Attending Provider Active S tart: June 01, 2025 Dr. Stacy Fontenot , DO Other Provider Active Start : June 01, 2025 Dr. Khai Bullard , DO Other Provider Active S tart: June 01, 2025 Team Status: Active Member Role/Relationship Status Dates Dr. Juliet Lujan MD Primary Care Provider Acti ve Start: June 01, 2025 Dr. Bentley Salazar MD Emergency Provider Active Start: June 01, 2025 Dr. Favian Nicholas , DO Admit Provider Active Star t: June 01, 2025 Dr. Favian Nicholas , DO Other Provider Active Star t: June 01, 2025 Dr. Christy Fontenot , DO Other Provider Active Sta rt: June 01, 2025 Dr. Brielle Turner MD Other Provider Active S tart: June 01, 2025 Dr. Favian Sinclair MD Attending Provider Active S tart: June 01, 2025 Dr. Favian Sinclair MD Other Provider Active Start : June 01, 2025 Dr. Stacy Fontenot , DO Other Provider Active Start : June 01, 2025 Dr. Khai Bullard , DO Other Provider Active S tart: June 01, 2025 Team Status: Active Member Role/Relationship Status Dates Dr. Juliet Lujan MD Primary Care Provider Acti ve Start: June 02, 2025 Dr. Shivani Mcrae , Emergency Provider Active Start: June 02, 2025 Dr. Stacy Fontenot , DO Admit Provider Active Start : June 02, 2025 Dr. Stacy Fontenot , DO Attending Provider Active S tart: June 02, 2025 Team Status: Inactive Member Role/Relationship Status Dates Dr. Juliet Lujan MD Primary Care Provider Acti ve Start: June 02, 2025 End: June 04, 2025 Dr. Shivani Mcrae , Emergency Provider Active Start: June 02, 2025 End: June 04, 2025 Dr. Stacy Fontenot , DO Admit Provider Active Start : June 02, 2025 End: June 04, 2025 Dr. Stacy Fontenot DO Attending Provider Active S tart: June 02, 2025 End: June 04, 2025 Dr. Christy Fontenot , Other Provider Active Sta rt: June 02, 2025 End: June 04, 2025 Team Status: Active Member Role/Relationship Status Dates Dr. Juliet Lujan MD Primary Care Provider Acti ve Start: June 02, 2025 Dr. Shivani Mcrae DO Emergency Provider Active Start: June 02, 2025 Dr. Stacy Fontenot DO Admit Provider Active Start : June 02, 2025 Dr. Stacy Fontenot DO Attending Provider Active S tart: June 02, 2025 Dr. Stacy Fontenot DO Other Provider Active Start : June 02, 2025 Dr. Christy Fontenot , Other Provider Active Sta rt: June 02, 2025 Team Status: Active Member Role/Relationship Status Dates Dr. Juliet Lujan MD Primary Care Provider Acti ve Start: June 03, 2025 Dr. Shivani Mcrae DO Emergency Provider Active Start: June 03, 2025 Dr. Stacy Fontenot DO Admit Provider Active Start : June 03, 2025 Dr. Stacy Fontenot DO Attending Provider Active S tart: June 03, 2025 Dr. Stacy Fontenot DO Other Provider Active Start : June 03, 2025 Dr. Christy Fontenot DO Other Provider Active Sta rt: June 03, 2025 Team Status: Active Member Role/Relationship Status Dates Dr. Juliet Lujan MD Primary Care Provider Acti ve Start: June 04, 2025 Dr. Shivani Mcrae DO Emergency Provider Active Start: June 04, 2025 Dr. Stacy Fontenot DO Admit Provider Active Start : June 04, 2025 Dr. Stacy Fontenot DO Attending Provider Active S tart: June 04, 2025 Dr. Stacy Fontenot DO Other Provider Active Start : June 04, 2025 Dr. Christy Fontenot DO Other Provider Active Sta rt: June 04, 2025 Reason for Visit (unrecogniz ed section and content) Specialty Diagnoses / Procedures Referred By Contac t Referred To Contact Diagnoses SDH (subdural hematoma) (HCC) brain bleed Procedures [id number] Ino Conte MD [address] [place] [id number] [facility] [address] [place] [address] Referral ID Status Reason Start Date Expiration Date Visits Re quested Visits Authorized [id number] 1 1 Specialty Diagnoses / Procedures Referred By Contac t Referred To Contact Radiology Diagnoses SDH (subdural hematoma) (HCC) Procedures CT head wo IV contrast Elieser Solis MD [address] [place] [address] Referral ID Status Reason Start Date Expiration Date Visits Re quested Visits Authorized [id number] Closed 07/27/2024 09/10/2024 1 1 Reason Comments [...] Tyler MD [address] [place] [address] Phone: tel: fax: [facility] Medical Intensive [facility] Unit [address] [place] [address] Phone: tel: Referral ID Status Reason Start Date Expiration Date Visits Re quested Visits Authorized [id number] 1 1 Reason Comments Referral - Kidney [...] Joycelyn Welch, BO) 2052 (Given - Provider: Joycelyn Welch RN) ipratropium-albuterol (Duo-Neb) 0.5-2.5 mg/3 mL nebulizer solution 3 mL 3 mL, Nebulization, 3 times daily, First dose (after last modification) on 08/07/24 at 1400 0848 (Given - Provider: Sangeeta Rouse RCP)1344 (Given - Provider: Sangeeta Rouse RCP)2030 (Given - Provider: Daina Carvalho, JUDE) 0905 (Given - Provider: Mary Mcintosh, QUALITY CONTROL OPERATOR)1433 (Given - Provider: Mary Mcintosh, JUDE)2239 (Given [...] PRN, mild pain (1-3), fever, Starting on [place] 08/01/24 at 1331, If inadequate response within [...] sedation for opioid reversal - MUST notify clinical documentation consultant provider immediately after first dose, may give [...] fever, Starting on 08/01/24 at 1331, Give OK if unable to administer by mouth or [...] RN) 0840 (Given - Provider: Sindy Garrison, OB)1413 (Given - Provider: Sindy Garrison, BO - [...] Carvalho RRT) 0814 (Given - Provider: Bre rOtiz RRT)1205 (Given - Provider: Bre Ortiz RRT)1532 [...] Starting on Fri08/17/24 at 1646 sodium chloride ([place]) 0.65 % nasal spray 1 spray 1 [...] or prosecute any alcohol or drug abuse patient.[facility] the event this information is protected by the Federal Confidentiality of Alcohol and Drug Abuse Patient Records regulations: The Federal rules restrict any use of the information to criminally investigate or prosecute any alcohol or drug abuse patient.[facility] the event this information is protected by the Federal Confidentiality of Alcohol and Drug Abuse Patient Records regulations: The Federal rules restrict any use of the information to criminally investigate or prosecute any alcohol or drug abuse patient.[facility] FOR RECORDS PERTAINING TO PATIENTS WHO [...] BE BASED ON THE PRIMARY CLINICAL RECORDS. [facility] [employer] [facility]. provides no warranty or guarantee of the accuracy or completeness of information in this document.
[2025-07-09 18:46] VITALS: BP 143/44; PULSE 58; RESP 16; O2SAT 100
--- NOTE | 2025-07-09 18:49 | CT_ITS ---
PROCEDURE: BRAIN/HEAD WITHOUT CONTRAST 07/09/2025 REASON FOR EXAM: TRAUMA TECHNIQUE: Procedure Code: CTBR Modality: CT Procedure: BRAIN/HEAD WITHOUT CONTRAST Coronal and Sagittal reconstruction series were provided. One or more dose reduction techniques were used (e.g., Automated exposure control, adjustment of the mA and/or kV according to patient size, use of iterative reconstruction technique. RADIATION DOSE SUMMARY: CTDlvol: Please see CT mGy DLP: Please see CT mGycm COMPARISON: None FINDINGS: Note: Images through the base of the brain and posterior fossa including the brainstem are slightly degraded by beam hardening artifact from the adjacent calvarium. Brain: There is no evidence of acute intracranial hemorrhage. Note is made that some parenchymal contusions may not be visible immediately. Consider follow-up imaging as clinically indicated. Mild parenchymal volume loss appropriate for age related involutional change. There is no focal extra-axial fluid collection. Appearance of the basal cisterns is unremarkable. No posterior fossa Chiari malformation. There is no midline shift or herniation. No evidence of pneumocephalus. Incidental intracranial calcifications noted. Intracranial calcific atherosclerosis. No parenchymal changes are seen suggestive of cytotoxic edema to indicate an acute territorial vascular infarct. Note is made that CT changes may lag clinical findings an acute stroke. If indicated, consider follow-up imaging or diffusion-weighted MRI. Ventricles: The ventricles do not appear obstructed. Pituitary: The pituitary fossa does not appear enlarged. The pituitary stalk does not appear deviated. Soft tissues: Mild soft tissue swelling along the frontal scalp. Right periorbital soft tissue swelling. Please refer to same-day CT maxillofacial report. Postoperative changes of the right ocular globe. Osseous: No acute calvarial fracture. No suspicious bone lesion. Visualized paranasal sinuses: Please refer to same-day CT maxillofacial report. Mastoids: Opacified left-sided mastoid air cells with fluid in the left mastoid antrum.. Middle ear cavities: Partially opacified left middle ear cavity. Clinical correlation for hemotympanum versus mild otitis media. If there is hemotympanum, consider thin-section skull base CT for further assessment. CT/Brain/Head without Contrast IMPRESSION: Partially opacified left middle ear cavity and opacified left-sided mastoid air cells. This could be posttraumatic or inflammatory/infectious. If there is hemotympanum, thin-section skull base CT is advised. - No evidence of acute intracranial injury otherwise. No evidence of acute intracranial hemorrhage or acute calvarial fracture. - Other findings discussed above. Reading Location: [id number]
--- NOTE | 2025-07-09 18:49 | CT_ITS ---
PROCEDURE: SPINE CERVICAL WITHOUT CONTRAS 07/09/2025 REASON FOR EXAM: TRAUMA TECHNIQUE: Procedure Code: CTSPC Modality: CT Procedure: SPINE CERVICAL WITHOUT CONTRAS Coronal and Sagittal reconstruction series were provided. One or more dose reduction techniques were used (e.g., Automated exposure control, adjustment of the mA and/or kV according to patient size, use of iterative reconstruction technique. RADIATION DOSE SUMMARY: CTDlvol: Please see CT mGy DLP: Please see CT mGycm COMPARISON: None FINDINGS: Osseous: There is straightening of cervical lordosis. Cervical vertebral body heights are maintained. Posterior cervical alignment is within normal limits. Cervical facet joints are not subluxed or dislocated. The atlantodental interval is maintained. Atlanto occipital and atlantoaxial articulations are within normal limits. No acute fracture of the cervical spine. Degenerative changes of the cervical spine are noted with mild disc space loss, anterior osteophytes, posterior bony ridging and facet arthropathy. If there are neurologic symptoms or radiculopathy, further evaluation by MRI is advised. Soft tissues: No prevertebral soft tissue swelling. No posterior paraspinal soft tissue hematoma. No cervical soft tissue emphysema. Vascular: Carotid calcifications noted. Vascular patency can not be assessed on this study. Thyroid: Heterogeneous thyroid with bilateral small nodules. Clinical correlation is advised. Consider thyroid ultrasound non emergently. Lung apices: Incompletely imaged moderate to large right pleural effusion extending to the right lung apex. Small left pleural effusion. Biapical pleural thickening. Parenchymal fibrotic changes and emphysematous changes. Confluent airspace opacity at the lung apices may be due to atelectasis or infiltrate. Clinical correlation with pulmonary symptoms. Radiographic correlation and follow-up to confirm resolution is advised. Underlying infection or malignancy can not be ruled out by this study. Mastoid air cells: There is opacification of tpek-jribrfz-tbkf-right mastoid air cells suggesting mastoiditis. Clinical correlation is advised. CT/Spine Cervical without Contras IMPRESSION: No acute fracture of the cervical spine. - Significant pleural effusions and pulmonary opacities at the visualized lung ap ices to be correlated clinically, as discussed above. - Other findings and recommendations discussed above.. Reading Location: [id number]
--- NOTE | 2025-07-09 18:54 | CT_ITS ---
PROCEDURE: SINUS/FACIAL BONE 07/09/2025 REASON FOR EXAM: TRAUMA TECHNIQUE: Procedure Code: CTSI Modality: CT Procedure: SINUS/FACIAL BONE Coronal and Sagittal reconstruction series were provided. One or more dose reduction techniques were used (e.g., Automated exposure control, adjustment of the mA and/or kV according to patient size, use of iterative reconstruction technique). RADIATION DOSE SUMMARY: CTDlvol: Please see CT mGy DLP: Please see CT mGycm COMPARISON: None FINDINGS: Soft tissues: There is focal preseptal right periorbital soft tissue swelling consistent with hemorrhagic contusion. There is right maxillofacial soft tissue swelling. No soft tissue emphysema is seen. No retained radiopaque soft tissue foreign body is seen. Orbits: Postoperative changes of the right ocular globe noted. The ocular globes are similar in size. Retro-orbital fat is preserved bilaterally. No intraconal hemorrhage is seen. Paranasal sinuses: No paranasal sinus hemorrhage, air-fluid levels or complete opacification. Mucosal thickening noted within the maxillary sinuses. Osseous: No acute maxillofacial fracture seen. The orbits and sinuses are intact. No acute maxillary or mandibular fracture. The temporomandibular joints are not subluxed or dislocated. No acute nasal bone fracture. The zygoma and pterygoid plates are intact. Dentition: There is absent dentition. There is bilateral dental decay. Dental decay appears most pronounced involving the left maxilla and mandible with associated periapical lucencies. Follow-up with complete dental exam is advised. Middle ear cavities: There is partial opacification of the left middle ear cavity. Clinical correlation for otitis media versus posttraumatic hemotympanum. If there is hemotympanum, further evaluation by thin section temporal bone skull base CT is advised. Mastoid air cells: Opacified mastoid air cells ofsj-jpyyptg-tbbi-right, some with air-fluid levels. This could be posttraumatic or related to bilateral zkip-[id number]-yzco-right mastoiditis. CT/Sinus/Facial Bone IMPRESSION: Right periorbital and maxillofacial soft tissue swelling. - No acute orbital or maxillofacial fracture seen. - Other findings discussed above in detail. Reading Location: [id number]
--- NOTE | 2025-07-09 18:57 | ED.VIS.FALL ---
HPI HPI - Fall History of Present Illness Chief Complaint: Fall Narrative Narrative: Chief complaint and HPI: 64-year-old female with past medical history of DM1, malnutrition, CKD on home dialysis, chronic hypoxia on 3 L nasal cannula presents for evaluation after mechanical fall. states that patient at baseline has generalized weakness which leads to frequent falls. She had an episode at home today in which she lost her balance and fell. She hit her head near her right eye. Developed a skin abrasion. No LOC. Endorses pain where the abrasion is located. Not on anticoagulation. states patient is supposed to receive home dialysis this evening. Patient denies any fever, chills, shortness of breath, chest pain, abdominal pain, nausea, vomiting. States her sugars have been controlled on her insulin pump. Reviewof systems: See HPI Medications: As listed on the chart Allergies: As listed on the chart PFSH: Per chart Vital signs: As listed on the chart. Reviewed. Physical exam: Gen: A&O x3, NAD Head: Normocephalic, atraumatic Eyes: No sclera icterus, conjunctiva clear, PERRL, EOMI, mild right lateral/upper eyelid periorbital swelling and edema with skin abrasion ENT: TMs clear BL, moist mucous membranes, no swelling/lacerations/blood in the mouth or the nares, No nasal septal hematoma Neck: Trachea midline, No JVD, Nontender CV: RRR, no murmurs, no chest wall TTP Resp: Lungs CTA BL, no w/r/c GI: Abd soft, non-distended, non-tender, no r/r/g, insulin pump without infection + Musc: Moves all extremities, no deformity, no spinal TTP, no edith step-offs, + 2 radial, PT, DP pulses, right upper extremity fistula with good thrill Skin: Warm, dry, intact Neuro: Alert, oriented, grossly intact, sensation intact, GCS 15 Psych: Cooperative, appropriate mood and affect [facility] Medical History Chronic hypoxic respiratory failure On home oxygen therapy Wears hearing aid Wears glasses Post-menopausal Insulin dependent diabetes mellitus Diabetes History of renal dialysis History of renal disease Anemia High cholesterol Easy bruising Excessive bleeding Injury of head and neck Former smoker Emphysema, unspecified History of edema History of echocardiogram History of stress test Cardiology follow-up encounter Osteoporosis Presence of insulin pump Severely underweight adult Lung nodule, multiple Nicotine abuse Lung nodule, solitary Fissure in skin of foot Adrian's sign present Tobacco abuse CKD (chronic kidney disease) stage 4, GFR 15-29 ml/min Body mass index (BMI) less than 16.5 Underweight Polyneuropathy due to type 1 diabetes mellitus Stage 4 chronic kidney disease due to type 1 diabetes mellitus Respiratory failure with hypoxia Smoking greater than 30 pack years Anemia Diabetic nephropathy, type I Hyperkalemia Renal insufficiency Diabetes Chronic obstructive pulmonary disease Essential (primary) hypertension Hypersomnia Anxiety Depression Atherosclerosis of coronary artery of [place] heart without angina pectoris NSTEMI (non-ST elevated myocardial infarction) (01/12/18) DM type 1 (diabetes mellitus, type 1) Hyperlipidemia COPD (chronic obstructive pulmonary disease) Home Medications ?Medication ?Instructions ?Recorded ?Last Taken ?Type simvastatin 40 mg tablet 40 mg PO QHS cholesterol 06/21/18 01/03/25 History albuterol sulfate 2.5 mg/3 mL 2.5 mg (3 mL) inhalation Q2H PRN 06/23/18 Unknown Rx (0.083 %) solution for nebulization PRN dyspnea, wheezing ##1 aspirin 81 mg tablet,delayed 81 mg PO DAILY heart health 12/31/19 01/03/25 History release oxygen See Rx Instructions NASAL .COMPLEX 12/03/23 01/04/25 History O2 therapy ipratropium 0.5 mg-albuterol 3 mg 3 ml inhalation Q4H PRN PRN SOB 12/29/23 Unknown Rx (2.5 mg base)/3 mL nebulization &/OR WHEEZING #180 mL soln denosumab 60 mg/mL subcutaneous 60 mg subcut [id number] bone health 06/10/24 07/09/24 Rx syringe (Prolia) #1 mL nitroglycerin 0.4 mg sublingual 0.4 mg sublingual Q5-15M PRN chest 10/21/24 Unknown Rx tablet pain #25 tabs metoprolol tartrate 50 mg tablet 50 mg PO BID blood pressure #180 11/11/24 01/03/25 Rx tabs amlodipine 10 mg tablet (Norvasc) 10 mg PO DAILY blood pressure 30 11/20/24 01/03/25 Rx days #30 tabs buspirone 7.5 mg tablet 7.5 mg PO DAILY Antianxiety 12/14/24 01/03/25 History sevelamer carbonate 800 mg tablet 800 mg PO TID PRN To lower 12/14/24 01/03/25 History Phosphorus blood-glucose sensor (FreeStyle #6 ea 02/09/25 Unknown Rx Juhi 2 Plus Sensor device) insulin pump cart,auto,BT,G6/L #30 ea 02/09/25 Unknown Rx (Omnipod 5 (G6/Juhi 2 Plus) subcutaneous cartridge) albuterol sulfate 90 mcg/actuation 2 puff inhalation Q6H PRN PRN 03/14/25 Unknown Rx aerosol inhaler Cough #8.5 grams blood-glucose sensor (Dexcom G6 #3 ea 04/07/25 Unknown Rx Sensor device) blood-glucose transmitter (Dexcom #1 ea 04/07/25 Unknown Rx G6 Transmitter device) insulin lispro 100 unit/mL 60 unit (0.6 mL) continuous 04/07/25 Unknown Rx subcutaneous solution (Humalog subcutaneous infusion .continuous U-100 Insulin) #54 mL ondansetron 4 mg disintegrating 4 mg PO Q8H PRN PRN Nausea #10 tabs 05/08/25 Unknown Rx tablet roflumilast 500 mcg tablet 500 mcg PO DAILY breathing #30 tabs 05/11/25 Unknown Rx (Daliresp) fluticasone fur. 200 mcg-umeclid 1 inh inhalation DAILY breathing 05/18/25 Unknown Rx 62.5 mcg-vilant 25 mcg #3 ea inhalat.powder (Trelegy Ellipta) calcitriol 0.5 mcg capsule 0.5 mcg PO DAILY supplement 05/31/25 Unknown History potassium chloride 20 mEq 20 meq PO BID potassium 05/31/25 Unknown History tablet,extended release(part/cryst) pseudoephedrine-guaifenesin ER 60 1 tab PO BID PRN cold symptoms 06/02/25 Unknown History mg-600 mg tablet,extend release 12hr (Mucinex D) clopidogrel 75 mg tablet 75 mg PO DAILY anti platelet #90 07/05/25 Unknown Rx tabs Allergy/AdvReac Type Severity Reaction Status Date / Time No Known Allergies Allergy Verified 07/09/25 17:51 Family History Mother Heart disease COPD (chronic obstructive pulmonary disease) Lupus Daughter Growth disorder Down syndrome Fibromyalgia Grandfather Colon cancer Diabetes Grandmother Heart disease CVA (cerebral vascular accident) Diabetes Pulmonary disease Sister Hypertension Kidney disease Surgical History Hx of surgical procedure History of cardiac catheterization History of coronary artery stent placement Hx of surgical procedure H/O: Hx of appendectomy H/O: hysterectomy History of coronary artery stent placement (02/04/18) Social History household members: spouse housing: house pets and animals: Yes pets and animals: cat(s) Smoking Status: Former smoker how long ago did patient quit smoking: Since 05/2024 cut back and has only had ~ 10 cigarettes since then. quit status: considering quitting alcohol intake: never substance use type: does not use caffeine: Yes Type: carbonated beverages Number of servings: 4 what type of physical activity do you participate in: none seatbelt use: always do you feel safe at home: Yes EXAM Physical Exam Const Vital Signs: 07/09/25 17:47 07/09/25 17:52 07/09/25 18:46 Temperature 97.6 F L Temperature Source Oral Pulse Rate 58 L 58 L Respiratory Rate 18 16 Respiratory Effort Normal Respiratory Depth Normal Respiratory Pattern Normal Blood Pressure 139/44 H 143/44 H Blood Pressure Mean 75 77 Pulse Ox 99 99 100 Oxygen Delivery Method Nasal Cannula Room Air Room Air Oxygen Flow Rate (L/min) 3 07/09/25 19:00 07/09/25 20:00 Temperature Temperature Source Pulse Rate 58 L 63 Respiratory Rate 20 H 19 H Respiratory Effort Respiratory Depth Respiratory Pattern Blood Pressure 162/40 H 165/44 H Blood Pressure Mean 80 84 Pulse Ox 100 99 Oxygen Delivery Method Room Air Oxygen Flow Rate (L/min) MDM MDM MDM Narrative Medical decision making narrative: 64-year-old female with past medical history of DM1, malnutrition, CKD on home dialysis, chronic hypoxia on 3 L nasal cannula presents for evaluation after mechanical fall. states that patient at baseline has generalized weakness which leads to frequent falls. She had an episode at home today in which she lost her balance and fell. She hit her head near her right eye. Developed a skin abrasion. No LOC. Not on anticoagulation. On presentation, patient no acute distress. She is on her baseline 3 L nasal cannula. Physical exam unremarkable except for right periorbital swelling, edema, tenderness from injury. Skin abrasion but no laceration. Differential diagnosis includes but is not limited to closed head injury, fracture, contusion. CT head, neck, face ordered. Patient is supposed to receive home dialysis this evening will obtain basic labs given she is a dialysis patient. CBC without leukocytosis. Patient has chronic anemia. Thrombocytopenia 125. Has a history of thrombocytopenia in the past. BMP shows baseline CKD with a BUN of 39 and creatinine of 4.07. Patient is to receive dialysis this evening at home. Potassium unremarkable. CT of the head negative for any acute traumatic injury other than her right periorbital soft tissue swelling. CT of the cervical spine negative for acute traumatic injury. CT of the face shows the right periorbital and maxillofacial soft tissue swelling but otherwise negative for fracture. Patient's symptoms are secondary to closed head injury and facial contusion. Follow-up with PCP. Recommend using home walker and cane for ambulation. Patient and updated of all the results of the plan. Patient stable to discharge home. Impression: 1. Closed head injury 2. Facial contusion 3. Mechanical fall with history of frequent falls Lab Data Labs: Laboratory Results - last 24 hr 07/09/25 19:00 WBC 5.3 RBC 3.01 L Hgb 8.8 L Hct 29.5 L MCV 98.0 MCH 29.2 MCHC 29.8 L RDW Std Deviation 51.5 H RDW Coeff of Iron 14.4 Plt Count 125 L MPV 10.8 Immature Gran % (Auto) 0.400 Neut % (Auto) 54.3 Lymph % (Auto) 25.0 Dickinson % (Auto) 7.3 Eos % (Auto) 11.9 H Baso % (Auto) 1.1 H Absolute Neuts (auto) 2.9 Absolute Lymphs (auto) 1.33 Nucleated RBC % 0 Sodium 141 Potassium 3.5 Chloride 102 Carbon Dioxide 28.7 Anion Gap 10 BUN 39 H Creatinine 4.07 H Estim Creat Clear Calc 10.14 L Est GFR (MDRD) Non-Af 12 L BUN/Creatinine Ratio 9.7 L Glucose 133 H Calcium 8.9 Radiography Diagnostic Testing: Clinical Impression(s) from Imaging Studies Brain CT 07/09/25 18:49 IMPRESSION: Partially opacified left middle ear cavity and opacified left-sided mastoid air cells. This could be posttraumatic or inflammatory/infectious. If there is hemotympanum, thin-section skull base CT is advised. - No evidence of acute intracranial injury otherwise. No evidence of acute intracranial hemorrhage or acute calvarial fracture. - Other findings discussed above. Reading Location: [id number] Cervical Spine CT 07/09/25 18:49 IMPRESSION: No acute fracture of the cervical spine. - Significant pleural effusions and pulmonary opacities at the visualized lung apices to be correlated clinically, as discussed above. - Other findings and recommendations discussed above.. Reading Location: [id number] Facial/Sinus 07/09/25 18:54 IMPRESSION: Right periorbital and maxillofacial soft tissue swelling. - No acute orbital or maxillofacial fracture seen. - Other findings discussed above in detail. Reading Location: [facility] Discharge Plan Triage Chief Complaint: Fall ED Provider: Justin Parisi Dx/Rx/DC Orders Prescriptions: No Action aspirin 81 mg tablet,delayed release (DR/EC) 81 mg PO DAILY oxygen See Rx Instructions NASAL .COMPLEX Rx Instructions: 3L NASALLY; 3 l Trelegy Ellipta 200-62.5-25 mcg blister with device 1 inh inhalation DAILY Qty: 3 3RF simvastatin 40 MG tablet 40 mg PO QHS albuterol sulfate 2.5 MG/3 ML solution for nebulization 2.5 mg INHALATION Q2H PRN PRN (Reason: dyspnea, wheezing) Qty: 1 0RF amlodipine [Norvasc] 10 mg tablet 10 mg PO DAILY 30 Days Qty: 30 0RF sevelamer carbonate 800 mg tablet 800 mg PO TID PRN (Reason: To lower Phosphorus) buspirone 7.5 mg tablet 7.5 mg PO DAILY Patient Comments: PT ONLY WANTS TO TAKE ONCE PER DAY potassium chloride 20 mEq tablet,ER particles/crystals 20 meq PO BID calcitriol 0.5 mcg capsule 0.5 mcg PO DAILY ondansetron 4 mg tablet,disintegrating 4 mg PO Q8H PRN PRN (Reason: Nausea) Qty: 10 0RF pseudoephedrine-guaifenesin [Mucinex D] 60-600 mg tablet extended release 12 hr 1 tab PO BID PRN (Reason: cold symptoms) ipratropium-albuterol 0.5 mg-3 mg(2.5 mg base)/3 mL solution for nebulization 3 ml inhalation Q4H PRN PRN (Reason: SOB &/OR WHEEZING) Qty: 180 6RF Prolia 60 mg/mL syringe 60 mg subcut [id number] Qty: 1 1RF Patient Comments: Next injection is 01/06/2025 nitroglycerin 0.4 mg tablet, sublingual 0.4 mg SUBLINGUAL Q5-15M PRN (Reason: chest pain) Qty: 25 44RF Rx Instructions: until response; do not exceed 3 doses per episode metoprolol tartrate 50 mg tablet 50 mg PO BID Qty: 180 3RF (DME) FreeStyle Juhi 2 Plus Sensor Device See Rx Instructions .Route Qty: 6 2RF Rx Instructions: 1 sensor q 15 days (DME) Omnipod 5 (G6/Juhi 2 Plus) Cartridge See Rx Instructions .Route Qty: 30 2RF Rx Instructions: 1 pod q 3 days, must be compatible with juhi 2 plus albuterol sulfate 90 mcg/actuation HFA aerosol inhaler 2 puff INHALATION Q6H PRN PRN (Reason: Cough) Qty: 8.5 2RF insulin lispro [Humalog U-100 Insulin] 100 unit/mL solution 60 unit continuous subcutaneous infusion .continuous Qty: 54 1RF Rx Instructions: via insulin pump Advised to increase the insulin pump (DME) Dexcom G6 Sensor Device See Rx Instructions .Route Qty: 3 5RF Rx Instructions: 1 sensor q 10 days (DME) Dexcom G6 Transmitter Device See Rx Instructions .Route Qty: 1 1RF Rx Instructions: 1 transmitter q 90 days roflumilast [Daliresp] 500 mcg tablet 500 mcg PO DAILY Qty: 30 11RF clopidogrel 75 mg tablet 75 mg PO DAILY Qty: 90 3RF Primary Care Provider: Bird Lujan Referrals: Bird Lujan MD [Primary Care Provider] - Print Language: Portuguese
[2025-07-09 19:00] VITALS: BP 162/40; PULSE 58; RESP 20; O2SAT 100
[2025-07-09 19:08] LABS: Hematocrit 29.5 % (37-47); Hemoglobin 8.8 g/dL (12.0-15.0); Immature Granulocytes Count 0.020 X10^3/uL (0.0-0.0); Mean Corp Hgb Conc 29.8 g/dL (32-36); Mean Corpuscular Volume 98.0 fL (81-99); Mean Platelet Vol. 10.8 fl (6.2-12.0); NRBC Flagged by Analyzer 0 % (0-5); Platelet Count 125 K/mm3 (150-450); RBC Distribution Width CV 14.4 % (11.6-14.6); RBC Distribution Width SD 51.5 fl (35.1-43.9); Red Blood Count 3.01 M/mm3 (4.2-5.4); White Blood Count 5.3 K/mm3 (4.4-11.0)
[2025-07-09 19:33] LABS: Anion Gap 10 (5-15); BUN 39 mg/dL (4-19); BUN/Creat Ratio 9.7 RATIO (10-20); Calcium,Total 8.9 mg/dL (7.6-11.0); Carbon Dioxide 28.7 mmol/L (21.0-32.0); Chloride 102 mmol/L (98-108); Estimated Creatinine Clearance 10.14 ml/min (50-250); Glucose 133 mg/dL (70-99); Potassium 3.5 mmol/L (3.3-5.1)
[2025-07-09 20:00] VITALS: BP 165/44; PULSE 63; RESP 19; O2SAT 99
[2025-07-09 21:08] VITALS: BP 145/60; PULSE 61; RESP 18; TEMP 36.4; O2SAT 98
== END 2025-07-09 21:15 | disposition home or self-care (01) ==
PROVIDERS: Emergency Provider Surgery; PCP Family Medicine; Visit Provider Surgery
DX: S00.11XA Contusion of right eyelid and periocular area, initial encounter (principal); N18.4 Chronic kidney disease, stage 4 (severe); Z79.4 Long term (current) use of insulin; E10.22 Type 1 diabetes mellitus with diabetic chronic kidney disease; W18.39XA Other fall on same level, initial encounter; I12.9 Hypertensive chronic kidney disease with stage 1 through stage 4 chronic kidney disease, or unspecified chronic kidney disease; F17.210 Nicotine dependence, cigarettes, uncomplicated; R29.6 Repeated falls; Z99.2 Dependence on renal dialysis; Z96.41 Presence of insulin pump (external) (internal); Z79.899 Other long term (current) drug therapy
CPT/HCPCS: 70450; 70486; 72125; 80048; 85025; 99285

== ENCOUNTER → 2025-07-20 | Outpatient (CLI) | payer MEDICARE, OTHER, SELFPAY ==
--- NOTE | 2025-07-20 13:49 | CT_ITS ---
PROCEDURE: CHEST WITHOUT CONTRAST 07/20/2025 REASON FOR EXAM: LEFT LUNG NODULES TECHNIQUE: Chest CT without contrast. Coronal and Sagittal reconstruction series were provided. One or more dose reduction techniques were used (e.g., Automated exposure control, adjustment of the mA and/or kV according to patient size, use of iterative reconstruction technique RADIATION DOSE SUMMARY: CTDlvol: 5.1 mGy DLP: 202.7 mGycm COMPARISON: CT lung 01/11/2025 FINDINGS: Lymph nodes: Redemonstration of multiple calcified as well as noncalcified mediastinal and hilar lymph node. Heart and Vasculature: Coronary artery calcifications are noted. Atherosclerotic calcifications of the thoracic aorta. Thoracic aorta and pulmonary arteries have normal contours; noncontrast technique limits evaluation. Pacer overlying left chest wall Coronary Artery Calcifications: Present Lungs and Airways: Bilateral emphysematous changes. Tree-in-bud nodularity is visualized within right lower lung. Interlobular septal thickening. Bilateral pulmonary nodules such as *Left upper lobe pulmonary nodule measuring 1 0.7 x 0.6 cm (2-143) previously measured 0.7 x 0.7 cm. *A new spiculated nodule is visualized within left upper lung measuring 1.2 x 0.6 cm (2-74) *New solid nodule within left lower lung measuring 0.4 x 0.3 cm (2-58) *Spiculated nodule within right upper lung adjacent to bronchovascular bundle measuring 0.5 cm (2-49) *Ill-defined nodule along bronchovascular tree measuring 0.8 cm (2-75) Pleura: Moderate right and small left pleural effusion. Upper Abdomen: Unremarkable Bones: Age-related degenerative changes CT/Chest without Contrast IMPRESSION: Coronary artery calcification (CAC) is is present Bilateral pulmonary nodules which are increased in number when compared to prio r study as mentioned above. Findings are indeterminate. Continued attention on short-term follow-up imaging in 3 months versus PET-CT can be obtained for better characterization. Advanced emphysematous changes with interlobular septal thickening. Findings a re concerning for underlying emphysematous changes superimposed with pulmonary congestion. Tree-in-bud nodularity within right lower lung. These findings are likely rela doni to underlying infectious/inflammatory process short-term follow-up is recommended. Moderate right and small left pleural effusion. Reading Location: [id number]
== END | disposition home or self-care (01) ==
LOC: CT 13:49
PROVIDERS: PCP Family Medicine; Referring Provider Nurse Practitioner Family; Visit Provider Nurse Practitioner Family
DX: R91.8 Other nonspecific abnormal finding of lung field (principal)
CPT/HCPCS: 71250

== ENCOUNTER → 2025-08-10 | Outpatient (CLI) | payer MEDICARE, OTHER, SELFPAY ==
--- NOTE | 2025-08-10 | FLU_PTH ---
PATIENT: SANDY ELLIS LOC: [facility]#:[id number] AGE/SX: 64/F ROOM: RE08/10/[address]: Irais Justice NP-Marquis : 1960 BED: DIS: 08/10/2025 SPEC #: [id number] RECD: 08/10/25 09:39 STATUS: HUGO REQ #: [id number] DAVID: 08/10/25 00:[address]: Irais Justice DEPT: CYTOLOGY RECD BY: Flavia Mckeon ENTERED: 08/10/25 12:48 SP TYPE: Fluid OTHR DR: Dr. Bird Lujan MD Tissues: THORACIC FLUID Procedures: Special Stain Group II Surgery Specimen Level IV Cytospin Fluid HEADER OPERATION: Ultrasound guided thoracentesis - right PRE-OP DIAGNOSIS: Pleural effusion TISSUE SUBMITTED: A- Thoracentesis fluid for cytology DIAGNOSIS CYTOLOGY A. Pleural fluid, right:: No malignant cells are identified CYTOLOGY STUDY Slides are reviewed. CYTOLOGY GROSS A. Received is 85 ml of yellow-cloudy fluid labeled with the patient's name and and designated per the requisition as "Thoracentesis fluid." Submitted for cytology and cell block preparation. 08/10/2025 CPT: 60097,76801
--- NOTE | 2025-08-10 08:18 | US_ITS ---
PROCEDURE: THORACENTESIS W US 08/10/2025 REASON FOR EXAM: MODERATE RIGHT SIDED PLEURAL EFFUSION TECHNIQUE: Diagnostic and therapeutic right THORACENTESIS w US COMPARISON: Chest CT of . FINDINGS: Preliminary imaging demonstrates the presence of a moderate left pleural effusion, as well as a larger right pleural effusion. Procedure: Following informed consent, and using standard sterile technique, a right ultrasound-guided thoracentesis was performed via a posterior approach. 2% lidocaine local anesthesia was followed by placement of the 5 Macedonian 7 cm [place] catheter into the right pleural fluid collection. Approximately 1275 mL clear yellow fluid was successfully removed, a portion sent to the laboratory for evaluation. No complication was encountered, the patient left the department in good condition without significant complaint. US/Thoracentesis W US IMPRESSION: Successful therapeutic and diagnostic right thoracentesis. Laboratory results pending. Reading Location: [place] [id number]
[2025-08-10 09:00] VITALS: BP 153/48; PULSE 56; RESP 18; O2SAT 100
[2025-08-10] MEDS: Lidocaine 2% (20 ml mdv) 20 ML Vial INFILT (09:04)
[2025-08-10 09:13] VITALS: BP 112/53; PULSE 54; RESP 18; O2SAT 100
[2025-08-10 09:20] VITALS: BP 116/36; PULSE 52; RESP 18; O2SAT 100
--- NOTE | 2025-08-10 09:28 | RAD_ITS ---
PROCEDURE: CHEST 1 VIEW 08/10/2025 REASON FOR EXAM: POST right THORACENTESIS TECHNIQUE: PA upright chest. COMPARISON: Chest x-ray of 06/02/2025. RAD/Chest 1 View IMPRESSION: A very small residual right pleural fluid collection is seen. A small left pleural fluid collection is noted. Chronic lung changes and hyperinflation are again noted. No pneumothorax is seen. The cardiomediastinal silhouette is stable, without evidence of cardiomegaly. Reading Location: [place] [address]
[2025-08-10 09:42] LABS: Cytology, Body Fluid / CSF SEE PATHOLOGY REPORT
[2025-08-10 10:28] LABS: Body Fluid Mononuclear WBC # 0.329 10^3/uL; Body Fluid Mononuclear WBC % 91.4 %; Body Fluid Polynuclear WBC # 0.031 10^3/uL; Body Fluid Polynuclear WBC % 8.6 %; White Blood Count/Body Fluid 0.360 10^3/uL
[2025-08-10 10:54] LABS: Glucose, Body Fluid 143 mg/dL (Not Establ.)
[2025-08-10 11:20] LABS: Appearance/Body Fluid CLEAR; Auto B Fluid Analyzer BKGD Ct COUNTS W/IN LIMITS (W/IN LIMITS); Color/Body Fluid YELLOW; Source- Body Fluid THORACENTESIS
[2025-08-10 11:21] LABS: Red Cell Count/Body Fluid 382 /mm3
[2025-08-10 11:31] LABS: Body Fluid QC Type(s) BF2; Neutrophil (Segs) 5 %; Other Cell Type/BF 2 %
[2025-08-10 15:30] LABS: Pathologist Comment/Body Fluid Reviewed
== END | disposition home or self-care (01) ==
PROVIDERS: PCP Family Medicine; Referring Provider Nurse Practitioner Family; Visit Provider Nurse Practitioner Family
DX: J90 Pleural effusion, not elsewhere classified (principal)
CPT/HCPCS: 32555; 71045; 82945; 83615; 84157; 87070; 87075; 87205; 88108; 88305; 88313; 89050

== ENCOUNTER 2025-08-15 14:20 | Inpatient (IN) | payer MEDICARE, OTHER, SELFPAY ==
[2025-08-15] VITALS (14 sets, daily range): BP systolic 116–151; BP diastolic 46–56; PULSE 62–68; RESP 13–32; TEMP 35.3–37.2; O2SAT 97–100; BMI 16.0; BMI 15.5
--- NOTE | 2025-08-15 14:25 | EKG12_ITS ---
Test Reason : SOB Blood Pressure : */* mmHG Vent. Rate : 64 BPM Atrial Rate : 64 BPM P-R Int : 156 ms QRS Dur : 88 ms QT Int : 432 ms P-R-T Axes : 78 -62 77 degrees QTcB Int : 445 ms Normal sinus rhythm Left axis deviation Minimal voltage criteria for LVH, may be normal variant ( [place] product ) Anteroseptal infarct , age undetermined Abnormal ECG When compared with ECG of 02-Jun-2025 05:23, No significant change was found Confirmed by MODESTO DAIGLE, NICOLA ([id number]), newspaper managing editor [place] ([id number]) on 08/18/2025 6:25:51 AM Referred By: KENDY Confirmed By: NICOLA SALVADOR MD
[2025-08-15 14:41] LABS: Hematocrit 29.2 % (37-47); Hemoglobin 9.0 g/dL (12.0-15.0); Immature Granulocytes Count 0.020 X10^3/uL (0.0-0.0); Mean Corp Hgb Conc 30.8 g/dL (32-36); Mean Corpuscular Volume 94.5 fL (81-99); Mean Platelet Vol. 9.2 fl (6.2-12.0); NRBC Flagged by Analyzer 0 % (0-5); Platelet Count 169 K/mm3 (150-450); RBC Distribution Width CV 13.9 % (11.6-14.6); RBC Distribution Width SD 47.8 fl (35.1-43.9); Red Blood Count 3.09 M/mm3 (4.2-5.4); White Blood Count 4.6 K/mm3 (4.4-11.0)
--- NOTE | 2025-08-15 14:46 | EX.ED.DYSGE1 ---
HPI History of Present Illness Chief Complaint: Shortness of Breath Narrative Narrative: Patient is a 64-year-old female with a history of a lung mass, CAD s/p stent placement, and type 1 DM, presenting with acute worsening dyspnea, peritoneal dialysis Friday. Patient is accompanied by a family member who is supplementing history. - Reports sudden onset of severe dyspnea while sitting at home today, stating, I can't breathe. - Unable to complete prescribed breathing treatment due to dyspnea. - Normally on 3 L of supplemental O2. - Diagnosed with a lung mass; scheduled for a PET scan tomorrow. - Underwent first thoracentesis last week, which provided symptom relief. - Has 2 coronary stents; experiences palpitations. - Denies cough, fever, chills, or chest pain. - On a no-carb diet in preparation for the PET scan; previously attempted scan was canceled due to hypoglycemia. - Currently not taking Plavix; stopped on Friday. - Uncertain about history of blood clots. -Has had a thoracentesis with 1 time recently took 1.5 L off [facility] Medical History Arteriovenous fistula stenosis Cachexia End stage renal disease On home oxygen therapy Wears hearing aid Wears glasses Post-menopausal Insulin dependent diabetes mellitus Diabetes History of renal dialysis History of renal disease Anemia High cholesterol Easy bruising Excessive bleeding Injury of head and neck Former smoker Emphysema, unspecified History of edema History of echocardiogram History of stress test Cardiology follow-up encounter ESRD (end stage renal disease) on dialysis Chronic hypoxic respiratory failure COPD exacerbation Osteoporosis Hypertension Presence of insulin pump Severely underweight adult Lung nodule, multiple Nicotine abuse Lung nodule, solitary Fissure in skin of foot Adrian's sign present Tobacco abuse CKD (chronic kidney disease) stage 4, GFR 15-29 ml/min Body mass index (BMI) less than 16.5 Underweight Polyneuropathy due to type 1 diabetes mellitus Stage 4 chronic kidney disease due to type 1 diabetes mellitus Respiratory failure with hypoxia Smoking greater than 30 pack years Anemia Diabetic nephropathy, type I Hyperkalemia Renal insufficiency Diabetes Chronic obstructive pulmonary disease Essential (primary) hypertension Hypersomnia Anxiety Depression Atherosclerosis of coronary artery of cahto heart without angina pectoris NSTEMI (non-ST elevated myocardial infarction) (01/12/18) DM type 1 (diabetes mellitus, type 1) Hyperlipidemia COPD (chronic obstructive pulmonary disease) Home Medications ?Medication ?Instructions ?Recorded ?Last Taken ?Type simvastatin 40 mg tablet 40 mg PO QHS cholesterol 06/21/18 08/14/25 History aspirin 81 mg tablet,delayed 81 mg PO DAILY heart health 12/31/19 08/15/25 History release oxygen See Rx Instructions NASAL .COMPLEX 12/03/23 01/04/25 History O2 therapy denosumab 60 mg/mL subcutaneous 60 mg subcut [id number] bone health 06/10/24 07/09/24 Rx syringe (Prolia) #1 mL nitroglycerin 0.4 mg sublingual 0.4 mg sublingual Q5-15M PRN chest 10/21/24 Unknown Rx tablet pain #25 tabs amlodipine 10 mg tablet (Norvasc) 10 mg PO DAILY blood pressure 30 11/20/24 08/15/25 Rx days #30 tabs buspirone 7.5 mg tablet 7.5 mg PO BID Antianxiety 12/14/24 08/15/25 History blood-glucose sensor (FreeStyle #6 ea 02/09/25 Unknown Rx Eileen 2 Plus Sensor device) blood-glucose sensor (Dexcom G6 #3 ea 04/07/25 Unknown Rx Sensor device) blood-glucose transmitter (Dexcom #1 ea 04/07/25 Unknown Rx G6 Transmitter device) insulin lispro 100 unit/mL 60 unit (0.6 mL) continuous 04/07/25 Unknown Rx subcutaneous solution (Humalog subcutaneous infusion .continuous U-100 Insulin) #54 mL roflumilast 500 mcg tablet 500 mcg PO DAILY breathing #30 tabs 05/11/25 08/15/25 Rx (Daliresp) fluticasone fur. 200 mcg-umeclid 1 inh inhalation DAILY breathing 05/18/25 08/15/25 Rx 62.5 mcg-vilant 25 mcg #3 ea inhalat.powder (Trelegy Ellipta) calcitriol 0.5 mcg capsule 0.5 mcg PO DAILY supplement 05/31/25 Unknown History potassium chloride 20 mEq 20 meq PO BID potassium 05/31/25 Unknown History tablet,extended release(part/cryst) clopidogrel 75 mg tablet 75 mg PO DAILY anti platelet #90 07/05/25 08/11/25 Rx Held on 08/15/25. tabs Instructions: PROCEDURE THIS WEEK albuterol sulfate 90 mcg/actuation 2 puff inhalation Q6H PRN PRN 08/02/25 Unknown Rx aerosol inhaler Cough #8.5 grams insulin pump cart,auto,BT,G6/7 08/15/25 Unknown History (Omnipod 5 G6-G7 Pods (Gen 5) subcutaneous cartridge) metoprolol tartrate 50 mg tablet 50 mg PO DAILY blood pressure 08/15/25 08/14/25 History sevelamer carbonate 0.8 gram oral 0.8 g PO TID PRN PHOSPHATES 08/15/25 Unknown History powder packet Allergy/AdvReac Type Severity Reaction Status Date / Time No Known Allergies Allergy Verified 08/02/25 13:13 Family History Mother Heart disease COPD (chronic obstructive pulmonary disease) Lupus Daughter Growth disorder Down syndrome Fibromyalgia Grandfather Colon cancer Diabetes Grandmother Heart disease CVA (cerebral vascular accident) Diabetes Pulmonary disease Sister Hypertension Kidney disease Surgical History Hx of surgical procedure History of cardiac catheterization History of coronary artery stent placement Hx of surgical procedure H/O: Hx of appendectomy H/O: hysterectomy History of coronary artery stent placement (02/04/18) Social History household members: spouse housing: house pets and animals: Yes pets and animals: cat(s) Smoking Status: Former smoker how long ago did patient quit smoking: Since 05/2024 cut back and has only had ~ 10 cigarettes since then. quit status: considering quitting alcohol intake: never substance use type: does not use caffeine: Yes Type: carbonated beverages Number of servings: 4 what type of physical activity do you participate in: none seatbelt use: always do you feel safe at home: Yes ROS ROS ED ROS Narrative Constitutional: Denies any fevers or chills, headaches Eyes: Denies double vision Cardiovascular: Denies chest pain or palpitations Respiratory: Complains of shortness of breath as noted above with cough Abdomen: Denies abdominal pain nausea vomit diarrhea : Denies urinary symptoms Neurological: Denies numbness, weakness, tingling Musculoskeletal: Denies back pain Skin: Denies any rashes or lesions EXAM Physical Exam Narrative Exam Narrative: General: Patient was lying in bed did appear to be uncomfortable secondary to difficulty breathing Head: Atraumatic, normocephalic Eyes: PERRL bilaterally, EOMI bilaterally, no conjunctival injection noted Neck: Soft, supple, trachea midline Cardiovascular: Regular rate and rhythm Respiratory: Diminished breath sounds bilaterally Abdomen: Soft, nondistended, nontender to palpation Extremities: +5/5 strength noted in the bilateral lower extremities Neurological: Patient follow commands knew that she was at [facility] year is 2024 Skin: Warm, dry, intact no rashes or lesions noted Const Vital Signs: 08/15/25 14:18 08/15/25 14:20 08/15/25 14:25 Temperature 97.5 F L Temperature Source Oral Pulse Rate 64 63 Respiratory Rate 16 19 H Respiratory Effort Respiratory Depth Respiratory Pattern Blood Pressure 139/56 H 144/55 H Blood Pressure Mean 83 84 Pulse Ox 99 100 100 Oxygen Delivery Method Nasal Cannula Nasal Cannula Nasal Cannula Oxygen Flow Rate (L/min) 3 3 3 08/15/25 14:32 08/15/25 15:25 08/15/25 16:00 Temperature 98.1 F 97.6 F L Temperature Source Oral Oral Pulse Rate 62 68 Respiratory Rate 20 H 32 H Respiratory Effort Short of Breath Respiratory Depth Normal Respiratory Pattern Tachypnea Blood Pressure 143/50 H 151/55 H Blood Pressure Mean 81 87 Pulse Ox 100 98 Oxygen Delivery Method Nasal Cannula Nasal Cannula Nasal Cannula Oxygen Flow Rate (L/min) 3 3 08/15/25 16:18 08/15/25 16:52 08/15/25 17:00 Temperature 98 F 97.9 F Temperature Source Oral Pulse Rate 63 63 62 Respiratory Rate 13 16 13 Respiratory Effort Respiratory Depth Respiratory Pattern Blood Pressure 131/48 H 146/50 H Blood Pressure Mean 75 82 Pulse Ox 99 99 Oxygen Delivery Method Nasal Cannula Oxygen Flow Rate (L/min) 3 MDM MDM MDM Narrative Medical decision making narrative: Patient is a 64-year-old female who presents to the emergency department chief complaint of sudden onset shortness of breath. On the differential diagnose includes but not limited to ACS, pneumonia, pneumothorax, pleural effusion. Once workup is obtained reviewed she will be reevaluated. Patient's CBC was reviewed which showed a white blood count 4.6, hemoglobin 9 which is stable, plate count was 9169. Patient's INR is 1, PT of 13.5. Patient sodium is 141, potassium is 4.4, creatinine of 3.64 she is due for dialysis today. Patient's proBNP elevated however she is a dialysis patient . Patient's chest x-ray was reviewed by myself and by radiology which was read as small right pleural effusion with a right basilar infiltrate and superimposed vascular congestion mild CHF noted. Patient CTA of the chest reviewed which showed few small right lower lobe segmental and subsegmental pulmonary emboli. Moderate right and small left pleural effusion with adjacent atelectasis. Patchy consolidation in the right lower lobe with opacification of the right lower lobe bronchial airways which may reflect aspiration or mucous plugging. Patient was given Rocephin and azithromycin at 1650. Moderate advanced centrilobular emphysema likely superimposed interstitial edema. No interval change in the few scattered subcentimeter pulmonary nodules largest in the left upper lobe measuring 8 mm. At this point in time we will discuss the case with hospitalist for admission for her worsening shortness of breath despite being on 3 L nasal cannula, pulmonary emboli and needing thoracentesis as well. Patient ambulated here in the emergency department and felt very weak and shaky and she also desaturated on her 3 L to 89%. Discussed case with hospitalist Dr. Huerta who accept the patient for admission after discussion we will place her on heparin in preparation for possible thoracentesis. Patient was notified as well as family ember at bedside they are agreeable this plan all question concerns answered. Lab Data Labs: Laboratory Results - last 24 hr 08/15/25 14:23 WBC 4.6 RBC 3.09 L Hgb 9.0 L Hct 29.2 L MCV 94.5 MCH 29.1 MCHC 30.8 L RDW Std Deviation 47.8 H RDW Coeff of Iron 13.9 Plt Count 169 MPV 9.2 Immature Gran % (Auto) 0.400 Neut % (Auto) 44.8 L Lymph % (Auto) 32.3 Owsley % (Auto) 8.4 Eos % (Auto) 13.2 H Baso % (Auto) 0.9 Absolute Neuts (auto) 2.1 Absolute Lymphs (auto) 1.49 Nucleated RBC % 0 PT 13.5 INR 1.0 APTT 38.9 H Sodium 141 Potassium 4.4 Chloride 104 Carbon Dioxide 28.9 Anion Gap 9 BUN 48 H Creatinine 3.64 H Estim Creat Clear Calc 10.97 L Est GFR (MDRD) Non-Af 13 L BUN/Creatinine Ratio 13.2 Glucose 166 H Calcium 7.7 [place] [address] H Radiography Diagnostic Testing: Clinical Impression(s) from Imaging Studies Chest X-Ray 08/15/25 15:00 IMPRESSION: Small right pleural effusion with right basilar infiltrate and superimposed vascular congestion and mild CHF. Reading Location: [id number] Chest CTA 08/15/25 15:45 IMPRESSION: 1. Few small right lower lobe segmental-subsegmental pulmonary arterial emboli. 2. Moderate right and small left pleural effusions with adjacent atelectasis. 3. Patchy consolidation in the right lower lobe with opacification of the right lower lobe bronchial airways, which may reflect aspiration or mucous plugging. 4. Moderate-advanced centrilobular emphysema. Likely superimposed interstitial edema. 5. No interval change in few scattered subcentimeter pulmonary nodules, the largest in the left upper lobe measuring 8 mm. Continued follow-up recommended. Reading Location: [id number] Discharge Plan Dx/Rx/DC Orders Clinical Impression: Pulmonary embolism, Pleural effusion, Acute on chronic hypoxic respiratory failure, DM type 1 (diabetes mellitus, type 1), Chronic obstructive pulmonary disease, End-stage renal disease (ESRD) Disposition Disposition: Acute Care [facility]
[2025-08-15 14:50] LABS: Prothrombin Time (Protime)PT. 13.5 SECONDS (11.7-14.9)
[2025-08-15 14:51] LABS: Partial Thromboplast Time 38.9 Seconds (24.1-36.2)
--- NOTE | 2025-08-15 15:00 | RAD_ITS ---
PROCEDURE: CHEST PA AND LATERAL 08/15/2025 REASON FOR EXAM: SOB TECHNIQUE: Procedure Code: RADCXR Modality: DX Procedure: CHEST PA AND LATERAL COMPARISON: Prior chest radiograph dated August 10, 2025. FINDINGS: Hardware: EKG electrodes are seen. Heart: The heart is nonenlarged. Mediastinum: The mediastinal contour is unremarkable. Lungs: Small right pleural effusion with right basilar infiltrate. Mild degree of vascular congestion. Follow-up recommended. Bones: Degenerative changes are identified within the thoracic spine. RAD/Chest PA and Lateral IMPRESSION: Small right pleural effusion with right basilar infiltrate and superimposed vas cular congestion and mild CHF. Reading Location: [place] [id number]
[2025-08-15 15:08] LABS: Anion Gap 9 (5-15); BUN 48 mg/dL (4-19); BUN/Creat Ratio 13.2 RATIO (10-20); Calcium,Total 7.7 mg/dL (7.6-11.0); Carbon Dioxide 28.9 mmol/L (21.0-32.0); Chloride 104 mmol/L (98-108); Estimated Creatinine Clearance 10.97 ml/min (50-250); Glucose 166 mg/dL (70-99); Potassium 4.4 mmol/L (3.3-5.1)
[2025-08-15 15:28] LABS: Pro- Brain NATRIURETIC PEPTIDE 63328 pg/mL (<=900)
--- NOTE | 2025-08-15 15:44 | ED.RN ---
ATTEMPTED TO PLACE PATIENT INTO A HOSPITAL GOWN. PT. DECLINED AT THIS TIME. PT. EDUCATED ON ED NEED FOR GOWN. PT. DECLINED AGAIN STATING, IF I GET ADMITTED I WILL PUT ONE ON.
--- NOTE | 2025-08-15 15:45 | CT_ITS ---
PROCEDURE: CTA CHEST W/WO CONTRAST 08/15/2025 REASON FOR EXAM: SOB TECHNIQUE: Procedure Code: [id number] Modality: CT Procedure: CTA CHEST W/WO CONTRAST Multiplanar Sagittal and Coronal images were obtained. 3D post processing was performed. CONTRAST: Isovue-300 VOLUME: 95 mL One or more dose reduction techniques were used (e.g., Automated exposure control, adjustment of the mA and/or kV according to patient size, use of iterative reconstruction technique). RADIATION DOSE SUMMARY: DLP: 131.32 mGycm COMPARISON: CT chest 07/20/2025. FINDINGS: PULMONARY VESSELS: Few small acute segmental-subsegmental pulmonary arterial emboli within the right lower lobe. No central PE. Normal caliber pulmonary trunk. No findings of right heart strain. LUNGS/PLEURA: Moderate right and small left pleural effusions with adjacent passive atelectasis. Patchy consolidation in the right lower lobe with opacification of the right lower lobe bronchial airways, which may reflect aspiration or mucous plugging. Moderate-advanced centrilobular pulmonary emphysema. Unchanged few scattered subcentimeter pulmonary nodules, the largest measuring up to 8 mm in the left upper lobe. Few scattered small calcified granulomas. MEDIASTINUM: No suspicious mediastinal, hilar or axillary lymph node enlargement. HEART: Normal in size. No pericardial effusion. Mild-moderate coronary artery calcifications. THORACIC AORTA: Normal course and caliber. Mild atherosclerotic disease. UPPER ABDOMEN: No significant abnormality, as visualized. BONES: Unremarkable osseous structures. Cachectic body habitus. CT/CTA Chest W/WO Contrast IMPRESSION: 1. Few small right lower lobe segmental-subsegmental pulmonary arterial emboli. 2. Moderate right and small left pleural effusions with adjacent atelectasis. 3. Patchy consolidation in the right lower lobe with opacification of the right lower lobe bronchial airways, which may reflect aspiration or mucous plugging. 4. Moderate-advanced centrilobular emphysema. Likely superimposed interstitial edema. 5. No interval change in few scattered subcentimeter pulmonary nodules, the lar gest in the left upper lobe measuring 8 mm. Continued follow-up recommended. Reading Location: [id number]
[2025-08-15] MEDS: Ceftriaxone 2 GM in 0.9% Normal Saline (50mL MB+) 50 ML IV (17:26)
--- NOTE | 2025-08-15 17:28 | PCM.HP.STD ---
[facility] - General General Date of Admission: 08/15/25 Date of Service: 08/15/25 Chief Complaint: Shortness of breath HPI Narrative SANDY ELLIS, is a 64 F who presented to the emergency department [facility] on 08/15/2025 with a chief complaint of shortness of breath. Patient has significant chronic illness and has been hospitalized several times recently. She has baseline chronic hypoxic and hypercapnic respiratory failure and follows with pulmonary medicine. She also has HD dependent doing home HD. Patient reported that she was fine yesterday but had sudden acute onset shortness of breath today while she was sitting and reported that she could not breathe. She tried to do breathing treatments however her shortness of breath was so severe she was unable to comply. Her baseline oxygen requirement is 3 L. Patient reported that she had a thoracentesis done last week and she did have symptom relief from that. She has had no fever or chills. Per review of records thoracentesis was on 08/10/2025 further removal of 1275 cc. No malignant cells were identified and effusion was transudative. Correction to the ED no she is not on PD she is on home HD. Vital signs on presentation showed a temperature of 97.5, heart rate 64, respiratory rate was 16 and 19, blood pressure was 139/56 and pulse ox was 99% on 3 L nasal cannula. CBC showed a chronic stable anemia with a hemoglobin of 9. She had no white count or left shift. Coags were overtly unremarkable. Chemistry panel showed chronic stable elevated BUN and serum creatinine and a glucose of 166. Patient is on her home insulin pump at baseline. Her BNP was 63,328. Chest x-ray showed a small right pleural effusion with a right basal infiltrate and superimposed vascular congestion with mild CHF and CTA of the chest was performed to rule out PE and showed few small right lower lobe segmental and subsegmental pulmonary emboli, moderate right and small left pleural effusion with adjacent compressive atelectasis, patchy consolidation in the right lower lobe, moderate advanced centrilobular emphysema with no interval change of pulmonary nodules Patient was started on heparin drip due to the need for repeat thoracentesis. Length of stay is estimated greater than 2 midnights. [facility] Medical History Arteriovenous fistula stenosis Cachexia End stage renal disease On home oxygen therapy Wears hearing aid Wears glasses Post-menopausal Insulin dependent diabetes mellitus Diabetes History of renal dialysis History of renal disease Anemia High cholesterol Easy bruising Excessive bleeding Injury of head and neck Former smoker Emphysema, unspecified History of edema History of echocardiogram History of stress test Cardiology follow-up encounter ESRD (end stage renal disease) on dialysis Chronic hypoxic respiratory failure COPD exacerbation Osteoporosis Hypertension Presence of insulin pump Severely underweight adult Lung nodule, multiple Nicotine abuse Lung nodule, solitary Fissure in skin of foot [place]'s sign present Tobacco abuse CKD (chronic kidney disease) stage 4, GFR 15-29 ml/min Body mass index (BMI) less than 16.5 Underweight Polyneuropathy due to type 1 diabetes mellitus Stage 4 chronic kidney disease due to type 1 diabetes mellitus Respiratory failure with hypoxia Smoking greater than 30 pack years Anemia Diabetic nephropathy, type I Hyperkalemia Renal insufficiency Diabetes Chronic obstructive pulmonary disease Essential (primary) hypertension Hypersomnia Anxiety Depression Atherosclerosis of coronary artery of [place] heart without angina pectoris NSTEMI (non-ST elevated myocardial infarction) (01/12/18) DM type 1 (diabetes mellitus, type 1) Hyperlipidemia COPD (chronic obstructive pulmonary disease) Home Medications ?Medication ?Instructions ?Recorded ?Last Taken ?Type simvastatin 40 mg tablet 40 mg PO QHS cholesterol 06/21/18 08/14/25 History aspirin 81 mg tablet,delayed 81 mg PO DAILY heart health 12/31/19 08/15/25 History release oxygen See Rx Instructions NASAL .COMPLEX 12/03/23 01/04/25 History O2 therapy denosumab 60 mg/mL subcutaneous 60 mg subcut [id number] bone health 06/10/24 07/09/24 Rx syringe (Prolia) #1 mL nitroglycerin 0.4 mg sublingual 0.4 mg sublingual Q5-15M PRN chest 10/21/24 Unknown Rx tablet pain #25 tabs amlodipine 10 mg tablet (Norvasc) 10 mg PO DAILY blood pressure 30 11/20/24 08/15/25 Rx days #30 tabs buspirone 7.5 mg tablet 7.5 mg PO BID Antianxiety 12/14/24 08/15/25 History blood-glucose sensor (FreeStyle #6 ea 02/09/25 Unknown Rx Eileen 2 Plus Sensor device) blood-glucose sensor (Dexcom G6 #3 ea 04/07/25 Unknown Rx Sensor device) blood-glucose transmitter (Dexcom #1 ea 04/07/25 Unknown Rx G6 Transmitter device) insulin lispro 100 unit/mL 60 unit (0.6 mL) continuous 04/07/25 Unknown Rx subcutaneous solution (Humalog subcutaneous infusion .continuous U-100 Insulin) #54 mL roflumilast 500 mcg tablet 500 mcg PO DAILY breathing #30 tabs 05/11/25 08/15/25 Rx (Daliresp) fluticasone fur. 200 mcg-umeclid 1 inh inhalation DAILY breathing 05/18/25 08/15/25 Rx 62.5 mcg-vilant 25 mcg #3 ea inhalat.powder (Trelegy Ellipta) calcitriol 0.5 mcg capsule 0.5 mcg PO DAILY supplement 05/31/25 Unknown History potassium chloride 20 mEq 20 meq PO BID potassium 05/31/25 Unknown History tablet,extended release(part/cryst) clopidogrel 75 mg tablet 75 mg PO DAILY anti platelet #90 07/05/25 08/11/25 Rx Held on 08/15/25. tabs Instructions: PROCEDURE THIS WEEK albuterol sulfate 90 mcg/actuation 2 puff inhalation Q6H PRN PRN 08/02/25 Unknown Rx aerosol inhaler Cough #8.5 grams insulin pump cart,auto,BT,G6/7 08/15/25 Unknown History (Omnipod 5 G6-G7 Pods (Gen 5) subcutaneous cartridge) metoprolol tartrate 50 mg tablet 50 mg PO DAILY blood pressure 08/15/25 08/14/25 History sevelamer carbonate 0.8 gram oral 0.8 g PO TID PRN PHOSPHATES 08/15/25 Unknown History powder packet Allergy/AdvReac Type Severity Reaction Status Date / Time No Known Allergies Allergy Verified 08/02/25 13:13 Family History Mother Heart disease COPD (chronic obstructive pulmonary disease) Lupus Daughter Growth disorder Down syndrome Fibromyalgia Grandfather Colon cancer Diabetes Grandmother Heart disease CVA (cerebral vascular accident) Diabetes Pulmonary disease Sister Hypertension Kidney disease Surgical History Hx of surgical procedure History of cardiac catheterization History of coronary artery stent placement Hx of surgical procedure H/O: Hx of appendectomy H/O: hysterectomy History of coronary artery stent placement (04/04/18) Social History household members: spouse housing: house pets and animals: Yes pets and animals: cat(s) Smoking Status: Former smoker how long ago did patient quit smoking: Since 05/2024 cut back and has only had ~ 10 cigarettes since then. quit status: considering quitting alcohol intake: never substance use type: does not use caffeine: Yes Type: carbonated beverages Number of servings: 4 what type of physical activity do you participate in: none seatbelt use: always do you feel safe at home: Yes ROS Constitutional Constitutional: Reports fatigue; Denies anorexia, change in weight, chills, fever(s), malaise, night sweats, weakness or other Eyes Eyes: Denies blurry vision, change in eye color, change in vision, discharge from eye(s), double vision, erythema, eye pain, loss of vision or other ENT HEENT: Denies abnormal hearing, dysphagia, ear pain, epistaxis, headache(s), hearing loss, nasal congestion, nasal discharge, post nasal drip, sinus pressure, sore throat or other Cardiovascular Cardiovascular: Denies chest pain, claudication, dyspnea on exertion, edema, lightheadedness, orthopnea, palpitations, paroxysmal nocturnal dyspnea, rapid heart rate, syncope or other Respiratory/Chest Respiratory/Chest: Reports dyspnea, shortness of breath at rest and shortness of breath with exertion; Denies cough, excessive phlegm production, hemoptysis, productive cough, wheezing or other Gastrointestinal Gastrointestinal: Denies abdominal pain, coffee ground emesis, constipation, diarrhea, dyspepsia, hematemesis, hematochezia, loose stools, melena, nausea, vomiting or other Genitourinary Genitourinary: Denies burning urination, difficulty urinating, dysuria, hematuria, nocturia, urinary frequency, urinary hesitancy, urinary incontinence, urinary urgency or other Musculoskeletal Musculoskeletal: Reports back pain; Denies arthralgias, joint pain, joint stiffness, joint swelling, myalgias, neck pain or other Neurologic Neurologic: Denies abnormal gait, abnormal speech, confusion, disequilibrium, dizziness, focal weakness, headache(s), numbness, paresthesias, seizure-like activity, seizures, syncope, tingling, tremor(s) or other Psychiatric Psychiatric: Denies anxiety, depression, homicidal ideation, suicidal ideation or other Endocrine Endocrinology: Denies change in body appearance, cold intolerance, excessive sweating, heat intolerance, polydipsia, polyuria or other Hematologic/Lymphatic Hematologic/Lymphatic: Denies anemia, easy bleeding, easy bruising, lymphadenopathy or other Allergic/Immunologic Allergic/Immunologic: Denies rhinitis, hives, eczemia, asthma or other Vital Signs Vital Signs Vital Signs: 08/15/25 14:18 08/15/25 14:20 08/15/25 14:25 Temperature 97.5 F L Temperature Source Oral Pulse Rate 64 63 Respiratory Rate 16 19 H Respiratory Effort Respiratory Depth Respiratory Pattern Blood Pressure 139/56 H 144/55 H Blood Pressure Mean 83 84 Pulse Ox 99 100 100 Oxygen Delivery Method Nasal Cannula Nasal Cannula Nasal Cannula Oxygen Flow Rate (L/min) 3 3 3 08/15/25 14:32 08/15/25 15:25 08/15/25 16:00 Temperature 98.1 F 97.6 F L Temperature Source Oral Oral Pulse Rate 62 68 Respiratory Rate 20 H 32 H Respiratory Effort Short of Breath Respiratory Depth Normal Respiratory Pattern Tachypnea Blood Pressure 143/50 H 151/55 H Blood Pressure Mean 81 87 Pulse Ox 100 98 Oxygen Delivery Method Nasal Cannula Nasal Cannula Nasal Cannula Oxygen Flow Rate (L/min) 3 3 08/15/25 16:18 08/15/25 16:52 08/15/25 17:00 Temperature 98 F 97.9 F Temperature Source Oral Pulse Rate 63 63 62 Respiratory Rate 13 16 13 Respiratory Effort Respiratory Depth Respiratory Pattern Blood Pressure 131/48 H 146/50 H Blood Pressure Mean 75 82 Pulse Ox 99 99 Oxygen Delivery Method Nasal Cannula Oxygen Flow Rate (L/min) 3 Weight Weight: 45.1 kg Body Mass Index (BMI) 16.0 Physical Exam Const alert, oriented x3 and no apparent distress; Negative for average body habitus, healthy appearing or well nourished Constitutional Narrative: Cachectic, upper middle-aged, white female, sitting up in bed, at the bedside changing insulin pump, appears comfortable but fatigued, does not appear toxic, no respiratory distress General Appearance: cooperative HEENT normocephalic and head/scalp atraumatic HEENT Narrative: Temporal wasting bilaterally, Mallampati 1, dentition is poor, no thrush Resp normal respiratory effort, no retractions, no use of accessory muscles and clear to auscultation bilaterally Resp Narrative: Severely diminished diffusely with marked decrease in air movement in right lower lobe but no adventitious sounds noted currently Auscultation: Negative for crackles, rhonchi or wheezes Cardio regular rate, regular rhythm, S1 normal heart sound, S2 normal heart sound, no murmurs, no rub, no gallops and no clicks GI normal to inspection, nondistended, normoactive bowel sounds, soft to palpation and non-tender GI Narrative: Scaphoid abdomen Extremity no clubbing, cyanosis or edema Extremity Narrative: Decreased lean muscle mass Neuro moves all extremities and no focal motor deficits Neuro Narrative: Severe generalized weakness Speech: speech normal Psych Psych Narrative: Affect is flat but expected for current situation, patient interacts appropriately makes good eye contact Results Lab / Micro Data 08/15/25 14:23 08/15/25 14:23 Labs: Laboratory Results - last 24 hr 08/15/25 14:23: WBC 4.6, RBC 3.09 L, Hgb 9.0 L, Hct 29.2 L, MCV 94.5, MCH 29.1, MCHC 30.8 L, RDW Std Deviation 47.8 H, RDW Coeff of Iron 13.9, Plt Count 169, MPV 9.2, Immature Gran % (Auto) 0.400, Neut % (Auto) 44.8 L, Lymph % (Auto) 32.3, [place] % (Auto) 8.4, Eos % (Auto) 13.2 H, Baso % (Auto) 0.9, Absolute Neuts (auto) 2.1, Absolute Lymphs (auto) 1.49, Nucleated RBC % 0, PT 13.5, INR 1.0, APTT 38.9 H, Sodium 141, Potassium 4.4, Chloride 104, Carbon Dioxide 28.9, Anion Gap 9, BUN 48 H, Creatinine 3.64 H, Estim Creat Clear Calc 10.97 L, Est GFR (MDRD) Non-Af 13 L, BUN/Creatinine Ratio 13.2, Glucose 166 H, Calcium 7.7, [place] [address] H Imaging Radiology Impression Chest X-Ray 08/15/25 15:00 IMPRESSION: Small right pleural effusion with right basilar infiltrate and superimposed vascular congestion and mild CHF. Reading Location: [facility] Chest CTA 08/15/25 15:45 IMPRESSION: 1. Few small right lower lobe segmental-subsegmental pulmonary arterial emboli. 2. Moderate right and small left pleural effusions with adjacent atelectasis. 3. Patchy consolidation in the right lower lobe with opacification of the right lower lobe bronchial airways, which may reflect aspiration or mucous plugging. 4. Moderate-advanced centrilobular emphysema. Likely superimposed interstitial edema. 5. No interval change in few scattered subcentimeter pulmonary nodules, the largest in the left upper lobe measuring 8 mm. Continued follow-up recommended. Reading Location: [facility] Assessment & Plan Assessment/Plan (1) Pleural effusion: (2) Pulmonary embolism: (3) Shortness of breath: (4) Hypoxia: PLAN: Plan Shortness of breath secondary to acute subsegmental PE and recurrent right pleural effusion -Patient had recent thoracentesis on 06/12/2025 for 1275 cc removal -Reaccumulation of right effusion however I doubt there is that much fluid compared to previous - Will send fluid studies next-check a.m. LDH - Heparin drip for PE until thoracentesis and then transition to Eliquis - Would recommend close follow-up with pulmonary medicine as patient will likely require ongoing thoracenteses and potentially referral for VATS pleurodesis versus talc pleurodesis with CT surgery if continues to get recurrent pleural effusions - May benefit from reevaluation of dry weight as well given recurrent effusions -Check ambulatory pulse ox prior to discharge - Pathology from most recent thoracentesis showed no malignant cells and appears to be transudative will reassess given 1 negative does not mean there is not a malignancy - With CT showing possible aspiration versus mucous plugging will have speech therapy evaluate patient Chronic hypoxic and hypercapnic respiratory failure/COPD - Baseline oxygen requirements is 2 to 3 L - Hold home Roflumilast and restart at discharge - Hold home triple therapy and restart at discharge - Patient uses nocturnal PAP therapy--> will order CPAP at 6 cm of water here Cachexia/severe malnutrition - Consult dietitian - Patient is underweight with a BMI of 15.6 - Start supplements CAD/essential hypertension/hyperlipidemia - Continue home aspirin and Plavix - continue home statin - Continue home amlodipine - Continue home metoprolol - Has previous MIESHA via PCI ESRD - 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 Christy Huerta Chronic anemia secondary to renal disease - Hemoglobin remains stable DM-1 -Continue insulin pump -Accu-Cheks per policy for utilization of home insulin pump Multiple pulmonary nodules - Plan is to proceed with PET scan - Imaging upcoming Osteoporosis - Patient is on outpatient Prolia DVT prophylaxis -Heparin drip CODE STATUS - Full code Charges/Coding Visit Charges Inpatient E&M: 10416 Init Hosp L2
[2025-08-15] MEDS: HEPARIN/D5w 25,000 UNITS 25,000 UNITS/250 ML IV.SOLN. 8.1 UNITS CONT INF (18:25)
[2025-08-15] MEDS: Azithromycin 500 MG in 0.9% Normal Saline (250mL Bag) 250 ML 250 MG IV (18:29)
[2025-08-16] VITALS (23 sets, daily range): BP systolic 118–153; BP diastolic 39–61; PULSE 56–65; RESP 14–24; TEMP 35.8–36.9; O2SAT 93–100; BMI 16.2; BMI 14.8
[2025-08-16 05:58] LABS: Hematocrit 27.3 % (37-47); Hemoglobin 8.5 g/dL (12.0-15.0); Immature Granulocytes Count 0.010 X10^3/uL (0.0-0.0); Mean Corp Hgb Conc 31.1 g/dL (32-36); Mean Corpuscular Volume 93.8 fL (81-99); Mean Platelet Vol. 9.8 fl (6.2-12.0); NRBC Flagged by Analyzer 0 % (0-5); Platelet Count 153 K/mm3 (150-450); RBC Distribution Width CV 13.7 % (11.6-14.6); RBC Distribution Width SD 47.0 fl (35.1-43.9); Red Blood Count 2.91 M/mm3 (4.2-5.4); White Blood Count 4.2 K/mm3 (4.4-11.0)
[2025-08-16 06:18] LABS: Magnesium 2.4 mg/dL (1.5-2.2)
[2025-08-16 06:30] LABS: AST(SGOT) 12 U/L (<=31); Alanine Aminotransfer ALT/SGPT < 5 U/L (<=34); Albumin, Serum 3.2 g/dL (3.4-4.8); Alkaline Phosphatase 48 U/L (35-104); Anion Gap 10 (5-15); BUN 52 mg/dL (4-19); BUN/Creat Ratio 13.7 RATIO (10-20); Calcium,Total 7.3 mg/dL (7.6-11.0); Carbon Dioxide 27.2 mmol/L (21.0-32.0); Chloride 104 mmol/L (98-108); Estimated Creatinine Clearance 10.63 ml/min (50-250); Globulin 2.5 g/dL (2.2-4.2); Glucose 154 mg/dL (70-99); Potassium 4.4 mmol/L (3.3-5.1)
[2025-08-16 06:35] LABS: Prothrombin Time (Protime)PT. 13.4 SECONDS (11.7-14.9)
[2025-08-16 06:37] LABS: Partial Thromboplast Time 109.3 Seconds (24.1-36.2)
--- NOTE | 2025-08-16 07:00 | US_ITS ---
PROCEDURE: THORACENTESIS W US 08/16/2025 REASON FOR EXAM: R EFFUSION TECHNIQUE: THORACENTESIS W US The procedure as well as the benefits and possible complications including infection, bleeding and pneumothorax were explained to the patient. Informed consent was obtained. The skin overlying the right hemithorax was prepped and draped in the usual sterile fashion. Following local anesthetic application, a 5 [place] catheter was placed into the right pleural space. 1390 mL of carolin colored fluid was aspirated. A 100 mL sample was sent to the laboratory. The patient tolerated the procedure well. COMPARISON: August 10, 2025. FINDINGS: Successful right ultrasound-guided thoracentesis. US/Thoracentesis W US IMPRESSION: Successful right ultrasound-guided thoracentesis with removal of 1309 mL of amb er colored fluid. Patient tolerated the procedure well. Reading Location: [place] [id number]
--- NOTE | 2025-08-16 08:07 | PCM.CONS.R ---
Assessment & Plan Assessment/Plan (1) End-stage renal disease (ESRD): PLAN: dialysis today. Next dialysis (2) Acute on chronic hypoxic respiratory failure: (3) Pleural effusion: (4) Pulmonary embolism: (5) DKA, type 1: (6) Anemia: PLAN: hgb 8.5g JIMMY on dialysis (7) Emphysema, unspecified: PLAN: hx tobacco use, on home oxygen (8) Hypertension: QUALIFIERS: Hypertension type: unspecified Qualified Code(s): I10 - Essential (primary) hypertension HPI Consult Data Date of Consult: 08/16/25 HPI Narrative Reason for Consultation: ESRD on home hemodialysis 4x/week HPI Narrative: SANDY ELLIS, is a 64 F with ESRD due to type 1 DM on home hemodialysis 4x/week presented to ED for acute shortness of breath while setting up for dialysis yesterday at home. Denied fever, chills, cough. She had wheezing. She is on home oxygen that did not help. She has emphysema with hs tobacco use. She is currently receiving her dialysis for missed treatment yesterday. Her last dialysis was Friday at home. She is breathing easier now. [facility] Medical History (Updated 08/16/25 @ 08:[address] Christy Huerta, ) Hypertension Arteriovenous fistula stenosis Cachexia End stage renal disease On home oxygen therapy Wears hearing aid Wears glasses Post-menopausal Insulin dependent diabetes mellitus Diabetes History of renal dialysis History of renal disease Anemia High cholesterol Easy bruising Excessive bleeding Injury of head and neck Former smoker Emphysema, unspecified History of edema History of echocardiogram History of stress test Cardiology follow-up encounter ESRD (end stage renal disease) on dialysis Chronic hypoxic respiratory failure COPD exacerbation Osteoporosis Presence of insulin pump Severely underweight adult Lung nodule, multiple Nicotine abuse Lung nodule, solitary Fissure in skin of foot Atwood's sign present Tobacco abuse CKD (chronic kidney disease) stage 4, GFR 15-29 ml/min Body mass index (BMI) less than 16.5 Underweight Polyneuropathy due to type 1 diabetes mellitus Stage 4 chronic kidney disease due to type 1 diabetes mellitus Respiratory failure with hypoxia Smoking greater than 30 pack years Anemia Diabetic nephropathy, type I Hyperkalemia Renal insufficiency Diabetes Chronic obstructive pulmonary disease Essential (primary) hypertension Hypersomnia Anxiety Depression Atherosclerosis of coronary artery of [place] heart without angina pectoris NSTEMI (non-ST elevated myocardial infarction) (01/12/18) DM type 1 (diabetes mellitus, type 1) Hyperlipidemia COPD (chronic obstructive pulmonary disease) Home Medications ?Medication ?Instructions ?Recorded ?Last Taken ?Type simvastatin 40 mg tablet 40 mg PO QHS cholesterol 06/21/18 08/14/25 History aspirin 81 mg tablet,delayed 81 mg PO DAILY heart health 12/31/19 08/15/25 History release oxygen See Rx Instructions NASAL .COMPLEX 12/03/23 01/04/25 History O2 therapy denosumab 60 mg/mL subcutaneous 60 mg subcut [id number] bone health 06/10/24 07/09/24 Rx syringe (Prolia) #1 mL nitroglycerin 0.4 mg sublingual 0.4 mg sublingual Q5-15M PRN chest 10/21/24 Unknown Rx tablet pain #25 tabs amlodipine 10 mg tablet (Norvasc) 10 mg PO DAILY blood pressure 30 11/20/24 08/15/25 Rx days #30 tabs buspirone 7.5 mg tablet 7.5 mg PO BID Antianxiety 12/14/24 08/15/25 History blood-glucose sensor (FreeStyle #6 ea 02/09/25 Unknown Rx Eileen 2 Plus Sensor device) blood-glucose sensor (Dexcom G6 #3 ea 04/07/25 Unknown Rx Sensor device) blood-glucose transmitter (Dexcom #1 ea 04/07/25 Unknown Rx G6 Transmitter device) insulin lispro 100 unit/mL 60 unit (0.6 mL) continuous 04/07/25 Unknown Rx subcutaneous solution (Humalog subcutaneous infusion .continuous U-100 Insulin) #54 mL roflumilast 500 mcg tablet 500 mcg PO DAILY breathing #30 tabs 05/11/25 08/15/25 Rx (Daliresp) fluticasone fur. 200 mcg-umeclid 1 inh inhalation DAILY breathing 05/18/25 08/15/25 Rx 62.5 mcg-vilant 25 mcg #3 ea inhalat.powder (Trelegy Ellipta) calcitriol 0.5 mcg capsule 0.5 mcg PO DAILY supplement 05/31/25 Unknown History potassium chloride 20 mEq 20 meq PO BID potassium 05/31/25 Unknown History tablet,extended release(part/cryst) clopidogrel 75 mg tablet 75 mg PO DAILY anti platelet #90 07/05/25 08/11/25 Rx Held on 08/15/25. tabs Instructions: PROCEDURE THIS WEEK albuterol sulfate 90 mcg/actuation 2 puff inhalation Q6H PRN PRN 08/02/25 Unknown Rx aerosol inhaler Cough #8.5 grams insulin pump cart,auto,BT,G6/7 08/15/25 Unknown History (Omnipod 5 G6-G7 Pods (Gen 5) subcutaneous cartridge) metoprolol tartrate 50 mg tablet 50 mg PO DAILY blood pressure 08/15/25 08/14/25 History sevelamer carbonate 0.8 gram oral 0.8 g PO TID PRN PHOSPHATES 08/15/25 Unknown History powder packet Allergy/AdvReac Type Severity Reaction Status Date / Time No Known Allergies Allergy Verified 08/02/25 13:13 Family History Mother Heart disease COPD (chronic obstructive pulmonary disease) Lupus Daughter Growth disorder Down syndrome Fibromyalgia Grandfather Colon cancer Diabetes Grandmother Heart disease CVA (cerebral vascular accident) Diabetes Pulmonary disease Sister Hypertension Kidney disease Surgical History Hx of surgical procedure History of cardiac catheterization History of coronary artery stent placement Hx of surgical procedure H/O: Hx of appendectomy H/O: hysterectomy History of coronary artery stent placement (02/04/18) Social History household members: spouse housing: house pets and animals: Yes pets and animals: cat(s) Smoking Status: Former smoker how long ago did patient quit smoking: Since 05/2024 cut back and has only had ~ 10 cigarettes since then. quit status: considering quitting alcohol intake: never substance use type: does not use caffeine: Yes Type: carbonated beverages Number of servings: 4 what type of physical activity do you participate in: none seatbelt use: always do you feel safe at home: Yes ROS Review of Systems ROS Unobtainable: other Details: QUILEUTE, limited historian Constitutional Constitutional: Denies chills or fever(s) Eyes Eyes: Denies loss of vision ENT HEENT: Denies nasal congestion Cardiovascular Cardiovascular: Denies chest pain Respiratory/Chest Respiratory/Chest: Reports portable oxygen @ home, shortness of breath at rest and wheezing Gastrointestinal Gastrointestinal: Denies abdominal pain Genitourinary Genitourinary: Denies change in urinary stream Musculoskeletal Musculoskeletal: Denies joint swelling or myalgias Integumentary Integumentary: Denies rash Neurologic Neurologic: Reports weakness Psychiatric Psychiatric: Reports anxiety; Denies confusion Hematologic/Lymphatic Hematologic/Lymphatic: Reports anemia Physical Exam Const alert and oriented x3 General Appearance: frail Nutritional Appearance: thin Eyes no scleral icterus Neck no JVD Resp no use of accessory muscles and clear to auscultation bilaterally Effort and Inspection: Negative for respiratory distress Auscultation: diminished lung sounds Cardio regular rate GI non-tender and non-distended Auscultation: normoactive bowel sounds Palpation: soft Extremity no clubbing, cyanosis or edema General Extremity: AV fistula Neuro moves all extremities and no focal motor deficits Sensorium / Orientation: awake and alert Psych cooperative Psych Narrative: QUILEUTE Lab / Micro Data 08/16/25 05:04 08/16/25 05:04 Labs: Laboratory Results - last 24 hr 08/15/25 14:23: WBC 4.6, RBC 3.09 L, Hgb 9.0 L, Hct 29.2 L, MCV 94.5, MCH 29.1, MCHC 30.8 L, RDW Std Deviation 47.8 H, RDW Coeff of Iron 13.9, Plt Count 169, MPV 9.2, Immature Gran % (Auto) 0.400, Neut % (Auto) 44.8 L, Lymph % (Auto) 32.3, Coleman % (Auto) 8.4, Eos % (Auto) 13.2 H, Baso % (Auto) 0.9, Absolute Neuts (auto) 2.1, Absolute Lymphs (auto) 1.49, Nucleated RBC % 0, PT 13.5, INR 1.0, APTT 38.9 H, Sodium 141, Potassium 4.4, Chloride 104, Carbon Dioxide 28.9, Anion Gap 9, BUN 48 H, Creatinine 3.64 H, Estim Creat Clear Calc 10.97 L, Est GFR (MDRD) Non-Af 13 L, BUN/Creatinine Ratio 13.2, Glucose 166 H, Calcium 7.7, [place] [address] H 08/16/25 05:04: WBC 4.2 L, RBC 2.91 L, Hgb 8.5 L, Hct 27.3 L, MCV 93.8, MCH 29.2, MCHC 31.1 L, RDW Std Deviation 47.0 H, RDW Coeff of Iron 13.7, Plt Count 153, MPV 9.8, Immature Gran % (Auto) 0.200, Neut % (Auto) 53.2, Lymph % (Auto) 25.1, Coleman % (Auto) 9.4, Eos % (Auto) 11.1 H, Baso % (Auto) 1.0, Absolute Neuts (auto) 2.2, Absolute Lymphs (auto) 1.04, Nucleated RBC % 0, Sodium 141, Potassium 4.4, Chloride 104, Carbon Dioxide 27.2, Anion Gap 10, BUN 52 H, Creatinine 3.80 H, Estim Creat Clear Calc 10.63 L, Est GFR (MDRD) Non-Af 13 L, BUN/Creatinine Ratio 13.7, Glucose 154 H, Calcium 7.3 L, Phosphorus 4.3, Magnesium 2.4 H, Total Bilirubin 0.18, AST 12, ALT < 5, Alkaline Phosphatase 48, Total Protein 5.7 L, Albumin 3.2 L, Globulin 2.5, Albumin/Globulin Ratio 1.3 Imaging Radiology Impression Chest X-Ray 08/15/25 15:00 IMPRESSION: Small right pleural effusion with right basilar infiltrate and superimposed vascular congestion and mild CHF. Reading Location: [facility]-1 Chest CTA 08/15/25 15:45 IMPRESSION: 1. Few small right lower lobe segmental-subsegmental pulmonary arterial emboli. 2. Moderate right and small left pleural effusions with adjacent atelectasis. 3. Patchy consolidation in the right lower lobe with opacification of the right lower lobe bronchial airways, which may reflect aspiration or mucous plugging. 4. Moderate-advanced centrilobular emphysema. Likely superimposed interstitial edema. 5. No interval change in few scattered subcentimeter pulmonary nodules, the largest in the left upper lobe measuring 8 mm. Continued follow-up recommended. Reading Location: [facility]
[2025-08-16] MEDS: 0.9% Normal Saline 1,000 ML IV.SOLN. 1000 ML OPERA.SITE (08:20)
[2025-08-16] MEDS: PureFlow B 2K Dialysis Soln 1 BAG 6 BAG PF (08:21)
[2025-08-16] MEDS: Epoetin Alfa epbx 10,000 UNIT/ML 10000 UNIT IV (09:20)
--- NOTE | 2025-08-16 11:46 | CASEMGMT ---
RN CM called Judy, left to call back for verification of O2 order.
--- NOTE | 2025-08-16 11:47 | CASEMGMT ---
BO NICHOLSON Assessment: Face to Face with pt for initial transition planning/care coordination assessment. RN BHARAT introduced self and role at [facility], pt voices understanding and consents to assessment. Pt is A&O x4 and answers all questions appropriately at this time. Pt lying in bed receiving dialysis, sitting at bedside. Pt in no distress. Agreeable to DC planning with present. Care providers, pharmacy, and demographics verified/updated. Strata: 3 Admitting Dx: PE/Pleural effusion PCP:Tai Specialists: Bradley, [employer]; , Paintings Restorer; CHAPIN[place]O, Cecilia Pulmonology. Preferred Pharmacy: [facility] Insurance: [facility], [facility] Prescription Benefit: yes LNOK: Jose, ; Bobbi, Daughter Living Arrangements: Pt lives with and daughter in a 1 level home with 3 steps to enter in ADLs: Pt states needing assistance with ADls and IADLs. Transportation: Pt family provides transportation. DME: shower chair, walker, w/c, cane, O2 through [employer]. Has portable tank and concentrator. HHC/SNF: Previously in [facility] R/U. 6 clicks = 20. Pt states no concerns with going home at time of dc. Pt currently doing peritoneal dialysis at home M, T, TH and FR, Pt and Pt state it is going well and deny concerns. Pt states no further concerns/needs. CM to follow. Advised pt to ask CM if any further question/concerns/needs arise, voices understanding. Pt Goal: Home Plan: Home with family support. Follow ST, PT, OT, Nephrology for consults and recommendations. Follow for any changes in O2. Yasmeen SORIANO CM
[2025-08-16] MEDS: Aspirin E.C. 81 MG Tablet PO (13:10)
--- NOTE | 2025-08-16 14:19 | CASEMGMT ---
RN BHARAT received VM from Judy, RN CM called back and left another VM to return call with O2 verification.
--- NOTE | 2025-08-16 14:21 | RAD_ITS ---
PROCEDURE: CHEST INSP/EXP 2 VIEW 08/16/2025 REASON FOR EXAM: POST THORA Status post right thoracentesis. TECHNIQUE: Procedure Code: [id number] Modality: DX Procedure: CHEST INSP/EXP 2 VIEW COMPARISON: Prior study dated August 15, 2025. FINDINGS: The patient is status post right thoracentesis. No evidence of pneumothorax. Blunting of the left costophrenic angle. Stable scarring at the lung bases. RAD/Chest Insp/Exp 2 View IMPRESSION: Status post right thoracentesis. No evidence of pneumothorax. Reading Location: [facility]
[2025-08-16] MEDS: Lidocaine 2% (20 ml mdv) 20 ML Vial INFILT (14:35)
--- NOTE | 2025-08-16 14:35 | FLU_PTH ---
PATIENT: SANDY ELLIS LOC: [facility] U#:[id number] AGE/SX: 64/F ROOM: [facility] RE08/15/[address]: Dr. Khai Bullard DO : 1960 BED: 1 DIS: 08/17/2025 SPEC #: [id number] RECD: 08/16/25 14:59 STATUS: HUGO REQ #: [id number] DAVID: 08/16/25 14:[address]: Khai Bullard DEPT: CYTOLOGY RECD BY: Flavia Mckeon ENTERED: 08/17/25 07:55 SP TYPE: Fluid OTHR DR: DO Dr. Bird Chisholm MD Dr. Kathryn Lee, DO Tissues: Pleural fluid, NOS Procedures: Special Stain Group II Surgery Specimen Level IV Cytospin Fluid HEADER OPERATION: Ultrasound guided thoracentesis PRE-OP DIAGNOSIS: Right pleural effusion TISSUE SUBMITTED: A- Thoracentesis fluid for cytology DIAGNOSIS CYTOLOGY A. Right pleural fluid, effusion, thoracentesis (cytospin, cellblock): * No malignant cells identified. CYTOLOGY STUDY Slides are reviewed. CYTOLOGY GROSS A. Received is 80 ml of yellow-cloudy fluid labeled with the patient's name and and designated per the requisition as Thoracentesis fluid. Submitted for cytology and cell block preparation. 08/17/2025 CPT: 92159,52024
--- NOTE | 2025-08-16 14:49 | CASEMGMT ---
RN CM received call from Judy, Pt current order is for 3L continuous and NIV HS.
[2025-08-16 15:00] LABS: Cytology, Body Fluid / CSF SEE PATHOLOGY REPORT
--- NOTE | 2025-08-16 15:15 | NURSING ---
BO Lee explained to BO Leija that pt had 1390mL off right side only 6 days after having 1275mL drained off of right side. Pt also has fluid present in left pleural space. Right side could potentially need drained again Friday in order to avoid pt too much discomfort over the weekend. Pt's blood thinner will also need to be addressed if she needs to be getting these done very frequently.
[2025-08-16 16:02] LABS: Auto B Fluid Analyzer BKGD Ct COUNTS W/IN LIMITS (W/IN LIMITS); Source- Body Fluid THORACENTESIS
[2025-08-16 16:03] LABS: Appearance/Body Fluid TURBID; Color/Body Fluid YELLOW
[2025-08-16 16:47] LABS: Body Fluid Mononuclear WBC # 0.498 10^3/uL; Body Fluid Mononuclear WBC % 90.0 %; Body Fluid Polynuclear WBC # 0.055 10^3/uL; Body Fluid Polynuclear WBC % 10.0 %; Red Cell Count/Body Fluid 0.005 10^6/ul; White Blood Count/Body Fluid 0.553 10^3/uL
[2025-08-16 16:55] LABS: Glucose, Body Fluid 164 mg/dL (Not Establ.)
--- NOTE | 2025-08-16 19:25 | PN.HOSP_ITS ---
Reason for Visit Chief Complaint: Shortness of breath Subjective Subjective Patient was seen and examined today, approximately 1500 cc of pleural fluid was removed from the right pleural cavity today using ultrasound guidance. I talked briefly with the patient and the patient's , she does have an appointment to see Dr. Alva later on this month. Patient's last pleural fluid cytology was negative for malignant cells. Patient will be placed on Eliquis beginning tonight, she underwent dialysis today. Objective Data Objective Data Vital Signs: Vital Signs Temp Pulse Resp BP Pulse Ox O2 Del Method O2 Flow Rate 97.5 F L 57 L 16 120/43 L 100 Nasal Cannula 4 08/16/25 17:48 08/16/25 17:48 08/16/25 17:48 08/16/25 17:48 08/16/25 17:48 08/16/25 17:48 08/16/25 14:50 Oxygen Flow Rate (L/min) 4 Oxygen Delivery Method Nasal Cannula Weight: 41.6 kg Body Mass Index (BMI) 14.8 Intake & Output: Intake and Output for Last 24 Hours 08/14/25 08/15/25 08/16/25 23:59 23:59 23:59 Intake Total 300 / 300 115.16 / 115.16 Output Total 4190 / 4190 Balance 300 / 300 -4074.84 / -4074.84 Medical Nutrition Assessment Dietitian: Malnutrition Criteria Met Start: 08/16/25 13:58 Freq: Status: Active Protocol: Document 08/16/25 13:58 SB (Rec: 08/16/25 13:58 SB [id number]) Nutrition Malnutrition Evidence of Yes Malnutrition Exists Malnutrition (severe Chronic ): Evidenced By Weight Loss (Severe),Physical Changes (Severe) Clinical Problem Chronic Disease or Condition Related Malnutrition Etiology severe malnutrition in the context of chronic illness likely related to inadequate oral/energy intake Signs/Symptoms as evidenced by 15% weight loss x 8-9 months, BMI: 14. 8kg/m2, and severe muscle/fat depletion in clavicle, temporal region, and orbitals. Status Active Problem Recommendation Dietitian Adjust to regular diet with fortified foods. Recommendations/ Pt refused ONS. Changes Recommend nutrition support due to signs and symptoms of malnutrition and severe weight loss. Will monitor weight trends and PO intake closely. Lab / Micro Data 08/17/25 05:06 08/16/25 05:04 Labs: Laboratory Results - last 24 hr 08/16/25 05:04: WBC 4.2 L, RBC 2.91 L, Hgb 8.5 L, Hct 27.3 L, MCV 93.8, MCH 29.2, MCHC 31.1 L, RDW Std Deviation 47.0 H, RDW Coeff of Iron 13.7, Plt Count 153, MPV 9.8, Immature Gran % (Auto) 0.200, Neut % (Auto) 53.2, Lymph % (Auto) 25.1, [place] % (Auto) 9.4, Eos % (Auto) 11.1 H, Baso % (Auto) 1.0, Absolute Neuts (auto) 2.2, Absolute Lymphs (auto) 1.04, Nucleated RBC % 0, Sodium 141, Potassium 4.4, Chloride 104, Carbon Dioxide 27.2, Anion Gap 10, BUN 52 H, C reatinine 3.80 H, Estim Creat Clear Calc 10.63 L, Est GFR (MDRD) Non-Af 13 L, BUN/Creatinine Ratio 13.7, Glucose 154 H, Calcium 7.3 L, Phosphorus 4.3, M agnesium 2.4 H, Total Bilirubin 0.18, AST 12, ALT < 5, Alkaline Phosphatase 48, Total Protein 5.7 L, Albumin 3.2 L, Globulin 2.5, Albumin/Globulin Ratio 1.3 08/16/25 06:11: PT 13.4, INR 1.0, APTT 109.3 H* 08/16/25 11:29: POC Glucose 91 08/16/25 14:35: Fluid WBC 0.553, Fluid RBC 0.005, Fluid Tot Cell Count 0.609 H, Fld Polynuclear WBCs # 0.055, Fld Polynuclear WBCs % 10.0, Fluid Mononuclear WBCs 0.498, Fld Mononuclear WBCs % 90.0, Fluid Glucose 164, Fluid Total Protein 2.5, Fluid LDH 66 08/16/25 16:38: POC Glucose 199 H Radiography Diagnostic Testing: Radiology Impression Thoracentesis Ultrasound 08/16/25 07:00 IMPRESSION: Successful right ultrasound-guided thoracentesis with removal of 1309 mL of carolin colored fluid. Patient tolerated the procedure well. Reading Location: [facility]- Chest X-Ray 08/16/25 14:21 IMPRESSION: Status post right thoracentesis. No evidence of pneumothorax. Reading Location: [facility]--1 Physical Exam Const alert, oriented x3 and no apparent distress Constitutional Narrative: Patient appears cachectic and older than her stated age General Appearance: cooperative, well kempt and well developed Orientation / Consciousness: awake, oriented to person, oriented to place and oriented to time HEENT normocephalic, head/scalp atraumatic and moist oral mucous membranes Eyes PERRL, EOMs intact bilaterally and conjunctivae normal Neck supple, no JVD, thyroid normal and no carotid bruits General: trachea midline Resp normal respiratory effort, no retractions, no use of accessory muscles and clear to auscultation bilaterally Auscultation: Negative for rales, rhonchi or wheezes Cardio regular rate, regular rhythm, S1 normal heart sound, S2 normal heart sound, no murmurs, no rub and no gallops GI normal to inspection, nondistended, normoactive bowel sounds, soft to palpation, non-tender and non-distended Extremity no clubbing, cyanosis or edema Skin no rashes or lesions noted General Skin Exam: no breakdown Neuro oriented x3, CN's II-XII intact bilaterally, no focal motor deficits and no sensory deficits noted Sensorium / Orientation: awake and alert Speech: speech normal Psych affect normal Assessment & Plan Assessment/Plan (1) Pulmonary embolism: PLAN: Plan 1. Pulmonary embolism-patient will be transition to [facility] #2 recurrent right pleural effusion-etiology unclear, patient will be following up with pulmonary medicine as outpatient #3 chronic hypoxic and hypercapnic respiratory failure-patient is on home oxygen, pulse ox was monitored here #4 essential hypertension-patient will remain on her current medications #5 end-stage renal disease-nephrology is participating in her care Total clinical time spent by myself addressing the patient's medical issues, reviewing the patient's data, and collaborating with the patient's care team: 35 minutes Charges/Coding Visit Charges Inpatient E&M: 32187 Subs Hosp L2
[2025-08-16] MEDS: APIXABAN 5 MG TABLET 10 MG PO (21:04)
[2025-08-16 22:42] LABS: Neutrophil (Segs) 10 %
[2025-08-16 22:49] LABS: Body Fluid QC Type(s) BF3Q
--- NOTE | 2025-08-17 00:41 | PCM.HOSP.N ---
Hospitalist Note D/t apixaban achieving therapeutic anticoagulation rapidly, overlapping with heparin drip is not required. First dose of apixaban given at 210308.16.25.
--- NOTE | 2025-08-17 03:17 | CPS ---
Pt refuses hospital cpap
[2025-08-17 03:24] VITALS: BMI 15.3
[2025-08-17 05:00] VITALS: BP 138/47; PULSE 57; RESP 16; TEMP 3.3; TEMP 38; O2SAT 95
[2025-08-17 06:38] LABS: Hematocrit 31.7 % (37-47); Hemoglobin 9.3 g/dL (12.0-15.0); Immature Granulocytes Count 0.030 X10^3/uL (0.0-0.0); Mean Corp Hgb Conc 29.3 g/dL (32-36); Mean Corpuscular Volume 96.4 fL (81-99); Mean Platelet Vol. 10.4 fl (6.2-12.0); NRBC Flagged by Analyzer 0 % (0-5); Platelet Count 186 K/mm3 (150-450); RBC Distribution Width CV 13.5 % (11.6-14.6); RBC Distribution Width SD 47.8 fl (35.1-43.9); Red Blood Count 3.29 M/mm3 (4.2-5.4); White Blood Count 4.2 K/mm3 (4.4-11.0)
[2025-08-17 07:04] LABS: LDH 163 U/L (84-246)
[2025-08-17 07:42] VITALS: O2SAT 100
[2025-08-17 09:12] LABS: Pathologist Comment/Body Fluid Reviewed
--- NOTE | 2025-08-17 09:19 | ST.MBS ---
Modified Barium Swallow Patient Information Study Date: 08/17/25 Study Time: 14:00 Diagnosis: Acute on chronic respiratory failure J96.21 Referring Physician: Stacy Huerta Reason for Referral: Assess swallow function, assess risk for aspiration, and determine recommendations for any necessary dysphagia interventions. Medical History: Patient is a 64 F who presented to the [facility] ED on 08/15/2025 with a chief complaint of shortness of breath. Patient has significant chronic illness and has been hospitalized several times recently. She has baseline chronic hypoxic and hypercapnic respiratory failure and follows with pulmonary medicine. Her baseline oxygen requirement is 3L. Patient reported that she had a thoracentesis done last week and she did have symptom relief from that. Chest x-ray in the ED showed a small right pleural effusion with a right basal infiltrate and superimposed vascular congestion with mild CHF and CTA of the chest was performed to rule out PE and showed few small right lower lobe segmental and subsegmental pulmonary emboli, moderate right and small left pleural effusion with adjacent compressive atelectasis, patchy consolidation in the right lower lobe, moderate advanced centrilobular emphysema with no interval change of pulmonary nodules. ST consulted for swallowing difficulty. Hx of dysphagia w/ MBSS completed 12/2012 recommending NPO w/ diet advancement to puree /? moderately thick liquids. Modified diet was not followed long due to pt dislike. 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 PMH significant for ESRD, DM type 1, injury of head and neck, former smoker, COPD, HTN, Lung nodules, severely underweight adult, osteoporosis, hyperkalemia, NSTEMI, HLD - See EMR for full, extensive PMH. Current Diet Ordered: Regular textures / Thin liquids Penetration-Aspiration Scale Penetration-Aspiration Scale: OBJECTIVE ASSESSMENT OF SWALLOW FUNCTION (QUANTITATIVE ? PER TRIAL): PENETRATION / ASPIRATION SCALE (ROMERO): 1 = does not enter airway 2 = enters airway/above vocal folds/ejected 3 = enters airway/above vocal folds/not ejected 4 = enters airway/contacts vocal folds/ejected 5 = enters airway/contacts vocal folds/not ejected 6 = enters airway/below vocal folds/ejected 7 = enters airway/below vocal folds/not ejected despite effort 8 = enters airway/below vocal folds/no effort VIDEOFLOROSCOPIC SCALE SCORE (ROMERO): Grade I = aspiration of material that has penetrated into the laryngeal vestibule, intact cough reflex Grade II = aspiration < 10 % of the bolus, intact cough reflex Grade III = aspiration of < 10 % of the bolus, reduced cough reflex or aspiration of > 10 % of the bolus, intact cough reflex Grade IV = aspiration of > 10 % of the bolus, reduced cough reflex Status Active ST Patient: Active Contact Information [facility] Speech Therapy:: Brenda Berman M.A. [facility]-[employer]NAGER Speech-Language Pathologist [facility] [address] [place] [address] [email or web address] [phone]
[2025-08-17] MEDS: Aspirin E.C. 81 MG Tablet PO (09:54)
[2025-08-17] MEDS: APIXABAN 5 MG TABLET 10 MG PO (09:55)
[2025-08-17 10:02] VITALS: BP 114/41; PULSE 62; RESP 16; TEMP 36.6; O2SAT 100
--- NOTE | 2025-08-17 11:18 | DCINST_ITS ---
Discharge Instructions DC O2, CPAP, BIPAP needs Home O2 Discharge instructions: Yes Type of respiratory needs?: Oxygen Oxygen frequency: Continuous Continuous oxygen liters per minute: 3 L Dressing / Incision Discharge Activity: Return to Normal Activity Weight Bearing Status: Full weight bearing Follow Up Care Test Results: Test results from this visit will be discussed in further detail at your follow- up appointment, if applicable. Discharge Plan Admission Admit Date/Time: 08/15/25 17:30 Primary Reason for Your Visit: Pulmonary embolism, right pleural effusion Attending Provider: Khai Bullard Primary Care Provider: Bird Lujan Consulting Providers: Christy Huerta; Stacy Huerta Instructions Additional Instructions / Restrictions: Follow-up with Dr. Alva's office as scheduled, stop Plavix-remain on 81 mg aspirin daily Discharge Orders/Prescriptions Prescriptions: New Eliquis 5 mg Tablet 10 mg PO BID Qty: 66 0RF Rx Instructions: Two twice a day for a total of 24 tablets, then reduce dose to 1 twice a day thereafter-start in the evening of 08/17/2025 Continued aspirin 81 mg tablet,delayed release (DR/EC) 81 mg PO DAILY oxygen See Rx Instructions NASAL .COMPLEX Rx Instructions: 3L NASALLY; 3 l Trelegy Ellipta 200-62.5-25 mcg blister with device 1 inh inhalation DAILY Qty: 3 3RF albuterol sulfate 90 mcg/actuation HFA aerosol inhaler 2 puff INHALATION Q6H PRN PRN (Reason: Cough) Qty: 8.5 2RF simvastatin 40 MG tablet 40 mg PO QHS amlodipine [Norvasc] 10 mg tablet 10 mg PO DAILY 30 Days Qty: 30 0RF buspirone 7.5 mg tablet 7.5 mg PO BID calcitriol 0.5 mcg capsule 0.5 mcg PO DAILY sevelamer carbonate 0.8 gram powder in packet 0.8 g PO TID PRN (Reason: PHOSPHATES) metoprolol tartrate 50 mg tablet 50 mg PO DAILY Prolia 60 mg/mL syringe 60 mg subcut [id number] Qty: 1 1RF Patient Comments: Next injection is 01/06/2025 nitroglycerin 0.4 mg tablet, sublingual 0.4 mg SUBLINGUAL Q5-15M PRN (Reason: chest pain) Qty: 25 44RF Rx Instructions: until response; do not exceed 3 doses per episode (DME) FreeStyle Eileen 2 Plus Sensor Device See Rx Instructions .Route Qty: 6 2RF Rx Instructions: 1 sensor q 15 days insulin lispro [Humalog U-100 Insulin] 100 unit/mL solution 60 unit continuous subcutaneous infusion .continuous Qty: 54 1RF Rx Instructions: via insulin pump Advised to increase the insulin pump (DME) Dexcom G6 Sensor Device See Rx Instructions .Route Qty: 3 5RF Rx Instructions: 1 sensor q 10 days (DME) Dexcom G6 Transmitter Device See Rx Instructions .Route Qty: 1 1RF Rx Instructions: 1 transmitter q 90 days roflumilast [Daliresp] 500 mcg tablet 500 mcg PO DAILY Qty: 30 11RF Discontinued potassium chloride 20 mEq tablet,ER particles/crystals 20 meq PO BID No Action (DME) Omnipod 5 G6-G7 Pods (Gen 5) Cartridge subcut Q3D Referrals / Follow Up: Bird Lujan MD [Primary Care Provider, Family Practice] - See Referral Note Referral Note: In 2 weeks Disposition Disposition (needs filled in before D/C Order can be placed): Home, Self Care
--- NOTE | 2025-08-17 11:28 | DS.PCM_ITS ---
Providers Date of Admission: 08/15/25 Date of Discharge: 08/17/25 Primary Care Physician: Dr. Bird Lujan MD Consultations 08/15/25 18:54 Consult: Nephrology Routine Consulting Provider: Christy Huerta Reason for Consult: ESRD EMERGENT Consult: No MD Notified: Yes Date Notified: 08/16/25 Time Notified: 06:13 Method of Notification: Text Consult: Onc/Wound/trademark affixer Routine Comment: Reason For Visit: PE/PLEURAL EFFUSION Diagnosis Discharge Diagnosis (1) End-stage renal disease (ESRD): Status: Acute Code(s): N18.6 - End stage renal disease (2) Acute on chronic hypoxic respiratory failure: Status: Chronic Code(s): J96.21 - Acute and chronic respiratory failure with hypoxia (3) Pleural effusion: Status: Acute Code(s): J90 - Pleural effusion, not elsewhere classified (4) Pulmonary embolism: Status: Acute Code(s): I26.99 - Other pulmonary embolism without acute cor pulmonale (5) DKA, type 1: Status: Acute Code(s): E10.10 - Type 1 diabetes mellitus with ketoacidosis without coma (6) Anemia: Status: Acute Code(s): D64.9 - Anemia, unspecified (7) Emphysema, unspecified: Status: Acute Code(s): J43.9 - Emphysema, unspecified (8) Hypertension: Status: Chronic Code(s): I10 - Essential (primary) hypertension Qualifiers: Hypertension type: unspecified Qualified Code(s): I10 - Essential (primary) hypertension Plan 1. Pulmonary embolism-patient will be transition to [facility] #2 recurrent right pleural effusion-etiology unclear, patient will be following up with pulmonary medicine as outpatient #3 chronic hypoxic and hypercapnic respiratory failure-patient is on home oxygen, pulse ox was monitored here #4 essential hypertension-patient will remain on her current medications #5 end-stage renal disease-nephrology is participating in her care #6 chronic severe protein caloric malnutrition as evidenced by 15% weight loss x 8 to 9 months, BMI of 14 Medications at Discharge Home Medications simvastatin 40 mg tablet 40 mg PO QHS cholesterol 06/21/18 aspirin 81 mg tablet,delayed release 81 mg PO DAILY heart health 12/31/19 oxygen See Rx Instructions NASAL .COMPLEX O2 therapy 12/03/23 denosumab 60 mg/mL subcutaneous syringe (Prolia) 60 mg subcut [id number] bone health #1 mL 06/10/24 nitroglycerin 0.4 mg sublingual tablet 0.4 mg sublingual Q5-15M PRN chest pain #25 tabs 10/21/24 amlodipine 10 mg tablet (Norvasc) 10 mg PO DAILY blood pressure 30 days #30 tabs 11/20/24 buspirone 7.5 mg tablet 7.5 mg PO BID Antianxiety 12/14/24 blood-glucose sensor ([employer]Style Eileen 2 Plus Sensor device) #6 ea 02/09/25 blood-glucose sensor (Dexcom G6 Sensor device) #3 ea 04/07/25 blood-glucose transmitter (Dexcom G6 Transmitter device) #1 ea 04/07/25 insulin lispro 100 unit/mL subcutaneous solution (Humalog U-100 Insulin) 60 unit (0.6 mL) continuous subcutaneous infusion .continuous #54 mL 04/07/25 roflumilast 500 mcg tablet (Daliresp) 500 mcg PO DAILY breathing #30 tabs 05/11/25 fluticasone fur. 200 mcg-umeclid 62.5 mcg-vilant 25 mcg inhalat.powder (Trelegy Ellipta) 1 inh inhalation DAILY breathing #3 ea 05/18/25 calcitriol 0.5 mcg capsule 0.5 mcg PO DAILY supplement 05/31/25 albuterol sulfate 90 mcg/actuation aerosol inhaler 2 puff inhalation Q6H PRN PRN Cough #8.5 grams 08/02/25 insulin pump cart,auto,BT,G6/7 (Omnipod 5 G6-G7 Pods (Gen 5) subcutaneous cartridge) 08/15/25 metoprolol tartrate 50 mg tablet 50 mg PO DAILY blood pressure 08/15/25 sevelamer carbonate 0.8 gram oral powder packet 0.8 g PO TID PRN PHOSPHATES 08/15/25 apixaban 5 mg tablet (Eliquis) 10 mg (2 x 5 mg) PO BID #66 tabs 08/17/25 Hospital Course Operations None Procedures None Summary of Care Provided Minutes Spent on Discharge: 32 Hospital Course: 64-year-old white female was seen in the emergency room at [facility] to place shortness of breath, she follows with pulmonary medicine and has baseline respiratory failure and is on home oxygen. She has a recurrent right pleural effusion-etiology was unclear. Workup in the emergency room showed her pulse ox to be 99% on 3 L, CBC showed a chronic stable anemia with hemoglobin of 9, beta nitric peptide was 63,328, chest x-ray showed a small right pleural effusion and a right basilar infiltrate and superimposed vascular congestion. CT of the chest was performed to rule out a PE and showed a few small right lower lobe segmental and subsegmental pulmonary emboli with adjacent compressive atelectasis and moderate advanced centrilobular emphysema. Patient was admitted to PCU, she was placed on anticoagulation and seen in consultation by nephrology due to her chronic end-stage renal disease with dialysis. She underwent a thoracentesis with removal of fluid for analysis. Patient improved during her hospitalization, on 08/17/2025, patient was seen and examined: On examination she appeared cachectic, she was in good spirits, she does not appear to be in any distress. Vital signs as documented. Skin warm and dry and without overt rashes. Neck without JVD, thyroid appears normal, trachea is midline, neck is supple. Lungs clear, normal air movement was noted. Heart exam notable for regular rhythm, normal sounds and absence of murmurs, rubs or gallops. Abdomen unremarkable and without evidence of organomegaly, masses, or abdominal aortic enlargement, bowel sounds are present in all 4 quadrants, no abdominal tenderness was noted. Extremities nonedematous, no cyanosis was noted, no clubbing was noted. Neuro: Cranial nerves II through XII are grossly intact, no focal motor deficits were noted, sensation to light touch and pinprick is intact, motor exam 5/5 throughout. Psych: Patient is alert and oriented x3, she does not appear anxious or depressed, she does not appear agitated. Patient was discharged home in stable condition on 08/17/2025 Medical Records Data Medical Nutrition Assessment Dietitian: Malnutrition Criteria Met Start: 08/16/25 13:58 Freq: Status: Active Protocol: Document 08/16/25 13:58 SB (Rec: 08/16/25 13:58 SB [id number]) Nutrition Malnutrition Evidence of Yes Malnutrition Exists Malnutrition (severe Chronic ): Evidenced By Weight Loss (Severe),Physical Changes (Severe) Clinical Problem Chronic Disease or Condition Related Malnutrition Etiology severe malnutrition in the context of chronic illness likely related to inadequate oral/energy intake Signs/Symptoms as evidenced by 15% weight loss x 8-9 months, BMI: 14. 8kg/m2, and severe muscle/fat depletion in clavicle, temporal region, and orbitals. Status Active Problem Recommendation Dietitian Adjust to regular diet with fortified foods. Recommendations/ Pt refused ONS. Changes Recommend nutrition support due to signs and symptoms of malnutrition and severe weight loss. Will monitor weight trends and PO intake closely. Weight / BMI Weight Weight: 43.2 kg Body Mass Index (BMI) 15.3 ABG / Lab / Microbiology Data 08/17/25 05:06 08/16/25 05:04 Laboratory: Laboratory Results - last 24 hr 08/16/25 11:29: POC Glucose 91 08/16/25 14:35: Fluid Source THORACENTESIS, Fluid Color YELLOW, Fluid Appearance TURBID, Fluid WBC 0.553, Fluid RBC 0.005, Fluid Tot Cell Count 0.609 H, Fld Polynuclear WBCs # 0.055, Fld Polynuclear WBCs % 10.0, Fluid Mononuclear WBCs 0.498, Fld Mononuclear WBCs % 90.0, Fluid Neutrophils 10, Fluid Lymphocytes 47, Fluid Monocytes 15, Fluid Macrophages 28, Fl Pathologist Comment Reviewed, Fluid Glucose 164, Fluid Total Protein 2.5, Fluid LDH 66, Fluid Comment 2 SEE COMMENT 08/16/25 16:38: POC Glucose 199 H 08/16/25 21:11: POC Glucose 150 H 08/17/25 05:06: WBC 4.2 L, RBC 3.29 L, Hgb 9.3 L, Hct 31.7 L, MCV 96.4, MCH 28.3, MCHC 29.3 L D, RDW Std Deviation 47.8 H, RDW Coeff of Iron 13.5, Plt Count 186, MPV 10.4, Immature Gran % (Auto) 0.700, Neut % (Auto) 54.8, Lymph % (Auto) 25.1, Island % (Auto) 9.1, Eos % (Auto) 9.3 H, Baso % (Auto) 1.0, Absolute Neuts (auto) 2.3, Absolute Lymphs (auto) 1.05, Nucleated RBC % 0, Lactate Dehydrogenase 163 Microbiology: Microbiology 08/16/25 14:35 Fluid - Pleural (Lung) Gram Stain - Final 08/16/25 14:35 Fluid - Pleural (Lung) Body Fluid Culture - Final No growth aerobically. 08/16/25 14:35 Fluid - Pleural (Lung) Anaerobic Culture - Final No growth in 5 days. Radiography Diagnostic Testing: Radiology Impression Thoracentesis Ultrasound 08/16/25 07:00 IMPRESSION: Successful right ultrasound-guided thoracentesis with removal of 1309 mL of carolin colored fluid. Patient tolerated the procedure well. Reading Location: [facility] Chest X-Ray 08/16/25 14:21 IMPRESSION: Status post right thoracentesis. No evidence of pneumothorax. Reading Location: [facility]--1 D/C Instructions Weight Bearing Status: Full weight bearing DC O2, CPAP, BIPAP Needs Home O2 Discharge instructions: Yes Type of respiratory needs?: Oxygen Oxygen frequency: Continuous Continuous oxygen liters per minute: 3 L DC home with Oxygen: Yes Home O2 MD Review: I have reviewed the oxygen testing, and the patient qualifies for home oxygen equipment and portability. The patient is mobile in the home and the community. Meaningful Use Info Meaningful Use Meaningful Use Diagnoses (Choose all that apply): None applicable Discharge Plan Admission Admit Date/Time: 08/15/25 17:30 Primary Reason for Your Visit: Pulmonary embolism, right pleural effusion Attending Provider: Khai Bullard Primary Care Provider: Bird Lujan Consulting Providers: Christy Huerta; Stacy Huerta Instructions Additional Instructions / Restrictions: Follow-up with Dr. Alva's office as scheduled, stop Plavix-remain on 81 mg aspirin daily Discharge Orders/Prescriptions Prescriptions: New Eliquis 5 mg Tablet 10 mg PO BID Qty: 66 0RF Rx Instructions: Two twice a day for a total of 24 tablets, then reduce dose to 1 twice a day thereafter-start in the evening of 08/17/2025 Continued aspirin 81 mg tablet,delayed release (DR/EC) 81 mg PO DAILY oxygen See Rx Instructions NASAL .COMPLEX Rx Instructions: 3L NASALLY; 3 l Trelegy Ellipta 200-62.5-25 mcg blister with device 1 inh inhalation DAILY Qty: 3 3RF albuterol sulfate 90 mcg/actuation HFA aerosol inhaler 2 puff INHALATION Q6H PRN PRN (Reason: Cough) Qty: 8.5 2RF simvastatin 40 MG tablet 40 mg PO QHS amlodipine [Norvasc] 10 mg tablet 10 mg PO DAILY 30 Days Qty: 30 0RF buspirone 7.5 mg tablet 7.5 mg PO BID calcitriol 0.5 mcg capsule 0.5 mcg PO DAILY sevelamer carbonate 0.8 gram powder in packet 0.8 g PO TID PRN (Reason: PHOSPHATES) metoprolol tartrate 50 mg tablet 50 mg PO DAILY Prolia 60 mg/mL syringe 60 mg subcut [id number] Qty: 1 1RF Patient Comments: Next injection is 01/06/2025 nitroglycerin 0.4 mg tablet, sublingual 0.4 mg SUBLINGUAL Q5-15M PRN (Reason: chest pain) Qty: 25 44RF Rx Instructions: until response; do not exceed 3 doses per episode (DME) FreeStyle Eileen 2 Plus Sensor Device See Rx Instructions .Route Qty: 6 2RF Rx Instructions: 1 sensor q 15 days insulin lispro [Humalog U-100 Insulin] 100 unit/mL solution 60 unit continuous subcutaneous infusion .continuous Qty: 54 1RF Rx Instructions: via insulin pump Advised to increase the insulin pump (DME) Dexcom G6 Sensor Device See Rx Instructions .Route Qty: 3 5RF Rx Instructions: 1 sensor q 10 days (DME) Dexcom G6 Transmitter Device See Rx Instructions .Route Qty: 1 1RF Rx Instructions: 1 transmitter q 90 days roflumilast [Daliresp] 500 mcg tablet 500 mcg PO DAILY Qty: 30 11RF Discontinued potassium chloride 20 mEq tablet,ER particles/crystals 20 meq PO BID No Action (DME) Omnipod 5 G6-G7 Pods (Gen 5) Cartridge subcut Q3D Referrals / Follow Up: Bird Lujan MD [Primary Care Provider, Family Practice] - 08/23/25 1:40 pm Referral Note: In 2 weeks Disposition Disposition (needs filled in before D/C Order can be placed): Home, Self Care Charges/Coding Visit Charges Inpatient E&M: 18974 Disch Hosp >30min
--- NOTE | 2025-08-17 11:29 | CASEMGMT ---
Addendum entered by Charles Weston 08/17/25 15:36: Unable to initiate a PA for Eliquis until there is an Rx for refills. Call placed to Suraj Lujan's office to notify them pt dc'd today on Eliquis Rx for 17 days and that PA will be needed for any refills. Addendum entered by Myriam Deng 08/17/25 13:38: 1225: Pt's RN states to this freelance writer that the pt was saturating above 90% on 3L at rest and with ambulation. Updated O2 rx not needed at this time. TC back to pt's preferred pharmacy who states that the Rx for Eliquis requires a PA. This RN CM provided the pharmacy with the 30 day free trial card (with pt's consent) with success. Pt now has a 0$ co-pay. Inquired with the pharmacist if the PA is still needed. The pharmacist states that this will only be needed if the pt is prescribed refills. Collaborated with [employer] [facility] who plans to initiate the PA process. No further needs identified at this time. Addendum entered by Myriam Deng 08/17/25 11:43: Noted that the pt has an rx for Eliquis. TC to pt's preferred pharmacy who states that they are still running the Rx and requests this freelance writer to call back at a later time. This freelance writer provided the pt with the savings card now. Will continue to follow. Original Note: During rounds, the hospitalist states that DC is anticipated for today. Noted that the pt is currently 100% on 4L. However, pt's current oxygen order from [facility] states 3L continuous. Requested the RN to test the pt at 3L instead. RN CM to the pt's room at this time. Pt's at the bedside. Pt states that she feels safe returning home today. Pt states that she plans to continue dialysis at home and denies needs or concerns. Pt states that she has all of the DME that she needs. Pt denies further DC concerns at this time.
--- NOTE | 2025-08-17 12:06 | PHA.DC.COU.R ---
Pharmacy [facility] has performed discharge medication counseling for this patient. The patient was counseled on the following discharge medications and changes in medications for homegoing review. - Apixaban 5 mg tablet The Reason for Use, instructions for use, and potential side effects were reviewed for all new medications. The patient's questions regarding all of their medications were answered. The patient was able to verbally demonstrate an understanding of their discharge medications. Medications at Discharge Home Medications simvastatin 40 mg tablet 40 mg PO QHS cholesterol 06/21/18 aspirin 81 mg tablet,delayed release 81 mg PO DAILY heart health 12/31/19 oxygen See Rx Instructions NASAL .COMPLEX O2 therapy 12/03/23 denosumab 60 mg/mL subcutaneous syringe (Prolia) 60 mg subcut [id number] bone health #1 mL 06/10/24 nitroglycerin 0.4 mg sublingual tablet 0.4 mg sublingual Q5-15M PRN chest pain #25 tabs 10/21/24 amlodipine 10 mg tablet (Norvasc) 10 mg PO DAILY blood pressure 30 days #30 tabs 11/20/24 buspirone 7.5 mg tablet 7.5 mg PO BID Antianxiety 12/14/24 blood-glucose sensor ([employer] Eileen 2 Plus Sensor device) #6 ea 02/09/25 blood-glucose sensor (Dexcom G6 Sensor device) #3 ea 04/07/25 blood-glucose transmitter (Dexcom G6 Transmitter device) #1 ea 04/07/25 insulin lispro 100 unit/mL subcutaneous solution (Humalog U-100 Insulin) 60 unit (0.6 mL) continuous subcutaneous infusion .continuous #54 mL 04/07/25 roflumilast 500 mcg tablet (Daliresp) 500 mcg PO DAILY breathing #30 tabs 05/11/25 fluticasone fur. 200 mcg-umeclid 62.5 mcg-vilant 25 mcg inhalat.powder (Trelegy Ellipta) 1 inh inhalation DAILY breathing #3 ea 05/18/25 calcitriol 0.5 mcg capsule 0.5 mcg PO DAILY supplement 05/31/25 albuterol sulfate 90 mcg/actuation aerosol inhaler 2 puff inhalation Q6H PRN PRN Cough #8.5 grams 08/02/25 insulin pump cart,auto,BT,G6/7 (Omnipod 5 G6-G7 Pods (Gen 5) subcutaneous cartridge) 08/15/25 metoprolol tartrate 50 mg tablet 50 mg PO DAILY blood pressure 08/15/25 sevelamer carbonate 0.8 gram oral powder packet 0.8 g PO TID PRN PHOSPHATES 08/15/25 apixaban 5 mg tablet (Eliquis) 10 mg (2 x 5 mg) PO BID #66 tabs 08/17/25
[2025-08-17 14:20] VITALS: BP 124/44; PULSE 61; RESP 16; TEMP 36.4; O2SAT 99
[2025-08-17 15:18] VITALS: O2SAT 99
== END 2025-08-17 14:18 | disposition home or self-care (01) | DRG 682 ==
LOC: ED 17:36 → PCU 17:46
PROVIDERS: Admitting Provider Internal Medicine; Emergency Provider Emergency Medicine; PCP Family Medicine; Visit Provider Internal Medicine
DX: I12.0 Hypertensive chronic kidney disease with stage 5 chronic kidney disease or end stage renal disease (principal); I26.99 Other pulmonary embolism without acute cor pulmonale; E43 Unspecified severe protein-calorie malnutrition; N18.6 End stage renal disease; E10.10 Type 1 diabetes mellitus with ketoacidosis without coma; J96.12 Chronic respiratory failure with hypercapnia; R64 Cachexia; J90 Pleural effusion, not elsewhere classified; J96.11 Chronic respiratory failure with hypoxia; Z68.1 Body mass index [BMI] 19.9 or less, adult; J43.9 Emphysema, unspecified; D63.1 Anemia in chronic kidney disease; E10.22 Type 1 diabetes mellitus with diabetic chronic kidney disease; E78.00 Pure hypercholesterolemia, unspecified; Z99.2 Dependence on renal dialysis; Z79.4 Long term (current) use of insulin; I25.10 Atherosclerotic heart disease of native coronary artery without angina pectoris; I25.2 Old myocardial infarction; F41.9 Anxiety disorder, unspecified; Z79.51 Long term (current) use of inhaled steroids; Z90.710 Acquired absence of both cervix and uterus; Z95.5 Presence of coronary angioplasty implant and graft; Z79.02 Long term (current) use of antithrombotics/antiplatelets; Z87.891 Personal history of nicotine dependence; Z96.41 Presence of insulin pump (external) (internal); Z79.899 Other long term (current) drug therapy; Z79.82 Long term (current) use of aspirin; Z90.49 Acquired absence of other specified parts of digestive tract
CPT/HCPCS: 32555; 36415; 71046; 71275; 80048; 80053; 82945; 82962; 83615; 83735; 83880; 84100; 84157; 85025; 85610; 85730; 87070; 87075; 87205; 88108; 88305; 88313; 89050; 90937; 92610; 93005; 94640; 97161; 97165; 97802; 99252; 99285; Q9967; A4216; G0257; G0463; J0696; J2405; Q5106